=== PATIENT | female | born 1980 | race Caucasian/White ===

== ENCOUNTER 2017-01-25 00:49 | Emergency (ER) | payer MEDICARE, MEDICAID ==
[~2017-01-25] VITALS: Ht 165.1 cm; Wt 87.5 kg
[~2017-01-25 00:49] MED LIST: ALPRAZOLAM 0.125 MG PO; AMPH20TA PO; ARIP2TAB10 IM; ARIP400S IM; ARIP400S INJ; ASEN10TA9 SL; ASPI-892; ATOM60CA PO; BENA20TA72 PO; BNZ20T; BNZ20T PO; BROM5CAP3 PO; BUPR150T PO; CARB100T PO; CARI250T PO; CHOL4PAC2 PO; CITA40TA19 PO; CLON0.5T3 PO; CONCERTA PO; CPR500T PO; CPRH4T PO; CRS350T PO; CYCL10TA9 PO; CYPR4TAB PO; CYPROHEPTADINE PO; DCS100C PO; DESV100T; DIPH1TAB PO; FLC100T1 PO; FLC150T PO; FLUV150C PO; GBPN300C; GLBR5T; GLMP4T PO; HALO10TA PO; HALO5TAB PO; HALO5TAB17 PO; HCA25SU EXT; HYDR-3720 PO; HYDR-3820; HYDR50TA76; HYDROCODONE; ILOP8TAB PO; IMIP50TA2 PO; INSASP10V SC; INSU100I14 SQ; INSU100I16 SQ; INSU100I29 SC; INSU100I5 SQ; INSU100V6 SQ; INVEGA 6 MG; ISOM1CAP11 PO; LAMO100T PO; LAMO100T69 PO; LANS15CA27; LEVO500T69 PO; LEVO75TA58; LEVO88TA26 PO; LISD30CA; LMT25T; LORA0.5T PO; LORA0.5T34; LORA1TAB PO; LOXA25CA; LRZ1T PO; LVT.05T; METF-380 PO; METF1000 PO; METFOR850T; METH36TA11 PO; MIRT15TA6 PO; MIRT30TA19 PO; MIRT30TA6 PO; NAPR500T3 PO; NF-ESOM40C PO; NITR-65 PO; NITR100C3 PO; OMEP-10 PO; OXYC-465 PO; PGLT30T PO; PNT40TEC; PNT40TEC PO; PRAZ1CAP2 PO; QTP100T; QTP100T PO; QUET300T; RSP50S; SCR1T1 PO; SITA100T; SITA1TAB6 PO; SRTR100T; SRTR100T PO; STRATTERA; SULF1TAB35 PO; TOPI100T PO; TOPI100T2 PO; TOPI200T19 PO; TOPI50TA20; TPR25T PO; TRAM1TAB7 PO; TRAZ100T92; TRIH5TAB2 PO; TRIH5TAB7 PO; VILA20TA PO; VORT10TA PO; ZALE10CA10 PO; [UNRECOGNIZED DRUG - CODE]; [UNRECOGNIZED DRUG - CODE] PO; [UNRECOGNIZED DRUG - CODE] PO; [UNRECOGNIZED DRUG - CODE] PO; [UNRECOGNIZED DRUG - OTHER]; [UNRECOGNIZED DRUG - OTHER]; [UNRECOGNIZED DRUG - OTHER] PO
[2017-01-25] MEDS ORDERED: NS IV 1000 ML 1,000 ML IV ONE ×2 (01:03)
--- NOTE | 2017-01-25 01:07 | ED General ---
General Chief Complaint: Glucose Problems Stated Complaint: HIGH BLOOD SUGAR 503 Source of Information: Patient, RN Notes Reviewed Exam Limitations: No Limitations History of Present Illness Time Seen by Provider: 01:05 Initial Comments As above and below. Patient really had no other complaints x/ that her BS is running high. Actually has been going on for a while now. States she is taking her insulin as directed. Timing/Duration: Getting Worse Modifying Factors: improves with Other (none) Associated Systoms: Denies Symptoms Allergies and Home Medications Allergies Coded Allergies: amoxicillin (Unverified Allergy, Severe, sob, rash, 11/01/10) Penicillins (Verified Adverse Reaction, Severe, RASH, 12/14/05) cefuroxime (Verified Adverse Reaction, Severe, RASH, 12/14/05) clarithromycin (Unverified Adverse Reaction, Mild, nausea and dizziness, ) Home Medications Carisoprodol 250 Mg Tablet, 250 MG PO, (Reported) Cyclobenzaprine HCl 10 Mg Tablet, 10 MG PO Q8H, #15 Prescribed by: GAURANG STANTON on 05/25/16 2326 Hydrocodone/Acetaminophen 1 Each Tablet, #90 (Reported) Hydroxyzine HCl 50 Mg Tablet, #120 (Reported) Insulin Aspart 100 Unit/1 Ml Insuln.pen, 27 UNITS SQ TID, (Reported) Insulin Detemir 100 Unit/1 Ml Insuln.pen, 60 UNITS SC HS, (Reported) Levothyroxine Sodium 88 Mcg Tablet, 88 MCG PO DAILY, (Reported) Lorazepam 1 Mg Tab, 2 MG PO HS PRN for ANXIETY, (Reported) TAKES 2 (1MG) TABLETS Lorazepam 1 Mg Tab, 1 MG PO BID PRN for ANXIETY, (Reported) Loxapine Succinate 25 Mg Capsule, #90 (Reported) Metformin Hcl 1,000 Mg Tablet, 1,000 MG PO BID, (Reported) Naproxen 500 Mg Tablet, 500 MG PO BID, #20 Prescribed by: GAURANG STANTON on 05/25/16 2326 Nitrofurantoin Monohyd/M-Cryst 100 Mg Capsule, 100 MG PO BID, #20 Prescribed by: GAURANG STANTON on 05/25/16 2326 Topiramate 100 Mg Tablet, 100 MG PO BID, (Reported) Trazodone HCl 100 Mg Tablet, #30 (Reported) Constitutional: see HPI : No All Other Systems Reviewed Negative Unless Noted: Yes (Negative excepted noted.) Past Ftkrksk-Lbbskd-Ryfleu Hx Patient Social History Type Used: Cigarettes 2nd Hand Smoke Exposure: Yes Recent Foreign Travel: No Contact w/Someone Who Travel: No Recent Hopitalizations: Yes Immunizations Up To Date Tetanus Booster (TDap): Less than 5yrs Date of Pneumonia Vaccine: Oct 24, 2010 Date of Influenza Vaccine: Aug 30, 2015 Seasonal Allergies Seasonal Allergies: Yes Surgeries HX Surgeries: Yes (EGD, HIP SURGERY CHILD) Surgeries: Appendectomy, Eye Surgery, Gallbladder, Orthopedic Respiratory Hx Respiratory Disorders: No Cardiovascular Hx Cardiac Disorders: No Neurological Hx Neurological Disorders: Yes Neurological Disorders: Headaches /Migraines Reproductive System Hx Reproductive Disorders: No Sexually Transmitted Disease: No HIV/AIDS: No Female Reproductive Disorders: Denies Genitourinary Hx Genitourinary Disorders: Yes Genitourinary Disorders: UTI-Chronic Gastrointestinal Hx Gastrointestinal Disorders: Yes Gastrointestinal Disorders: Gastroesophageal Reflux Musculoskeletal Hx Musculoskeletal Disorders: No Endocrine Hx Endocrine Disorders: Yes Endocrine Disorders: Diabetes, Insulin dep, Hypothyroidsim HEENT HX ENT Disorders: Yes (GLASSES, EYE SURGERY CHILD) Loss of Vision: Bilateral Hearing Impairment: Denies Cancer Hx Cancer: No Psychosocial Hx Psychiatric Problems: Yes Behavioral Health Disorders: ADD/ADHD, Anxiety, Suicide Attempts, Personality Disorder, Schizophrenia, Depression Integumentary HX Skin/Integumentary Disorder: No Blood Transfusions Hx Blood Disorders: No Family Medical History Family Medial History: Family history: Allergy 03 MOTHER 09 BROTHER Family history: Arthritis 03 MOTHER Family history: Asthma 09 BROTHER 09 SISTER Family history: Cardiovascular disease 03 FATHER ("TAKES MEDICATION FOR HIS HEART") Family history: Diabetes mellitus 03 FATHER Family history: Hypertension 03 MOTHER Hypercholesterolemia 03 MOTHER Psychosocial problem 09 SISTER (DEPRESSION) Psychotic disorder 09 SISTER (ANXIETY) No Family History of: Abdominal aortic aneurysm [place]'s disease Alcoholism Aphasia Cancer Cancer of colon Cataract Chest pain Congenital heart disease Congestive heart failure Cystic fibrosis Dementia Dysphagia Family history: Alzheimer's disease Family history: Breast disease Family history: Coronary thrombosis Family history: Gastrointestinal disease Family history: Glaucoma Family history: Osteoporosis Family history: Thyroid disorder Headache Hearing loss Heart disease Hereditary disease History of - anemia History of - disorder History of - respiratory disease History of drug abuse Human immunodeficiency virus (HIV) seropositivity Infertile Kidney disease Malignant neoplasm of lung Myocardial infarction Parkinson's disease Prostate cancer Seizure disorder Stroke Tuberculosis Visual impairment Physical Exam Vital Signs Vital Sign - Last 12Hours 4/4/17 01:06 Temp 97.1 Pulse 117 Resp 18 B/P (MAP) 132/89 Pulse Ox 97 O2 Delivery Room Air Capillary Refill : General Appearance: No Apparent Distress, WD/WN HEENT: Normal ENT Inspection Neck: Normal Inspection Respiratory: No Respiratory Distress Cardiovascular: Tachycardia Gastrointestinal: Soft, No Tenderness Rectal: Deferred Neurologic/Psychiatric: Alert, Oriented x3, No Motor/Sensory Deficits Skin: Warm/Dry Progress/Results/Core Measures Results/Orders Lab Results My Orders Medications Given in ED Vital Signs/I&O Point of Care Testing Finger Stick Blood Glucose: 476 Blood Glucose Action Taken: RN AND DR NOTIFIED Departure Impression Impression: Primary Impression: Hyperglycemia Additional Impression: Diabetes mellitus, insulin dependent (IDDM), uncontrolled Disposition: 01 HOME, SELF-CARE Condition: Stable Departure-Patient Inst. Decision time for Depature: 02:40 Referrals: OLGA LUCERO MD (PCP/Family) Primary Care Physician Patient Instructions: Ganglion Cyst (DC), Hyperglycemia, Adult (DC) Add. Discharge Instructions: All discharge instructions reviewed with patient and/or family. Voiced understanding. CALL JAZMINE LATER THIS AM, 01/25, AND LET HIM KNOW YOUR SUGARS ARE RUNNING HIGH AND SEE HOW HE WOULD LIKE TO ADJUST YOUR INSULIN. FRANCISCO ALAN DO Jan 25, 2017 01:07
[2017-01-25 01:15] LABS: BILIRUBIN,URINE NEGATIVE (NEGATIVE); KETONES,URINE NEGATIVE (NEGATIVE); LEUKOCYTE ESTERASE ,URINE NEGATIVE (NEGATIVE); NITRITE,URINE NEGATIVE (NEGATIVE); PH,URINE 7 (5-9); PROTEIN,URINE NEGATIVE (NEGATIVE); UROBILINOGEN,URINE NORMAL (NORMAL); WBC,URINE RARE /HPF
[2017-01-25] MEDS ORDERED: inSUlin (REGULAR) HUMAN 1 UNIT/0.01 ML (CHARGE PER UNIT) IV ONE (01:15)
[2017-01-25 01:24] LABS: BASOPHILS # (AUTO) 0.1 10^3/uL (0.0-0.1); BASOPHILS % (AUTO) 1 % (0-10); EOSINOPHILS # (AUTO) 0.3 10^3/uL (0.0-0.3); EOSINOPHILS % (AUTO) 4 % (0-10); LYMPHOCYTES # (AUTO) 3.6 X 10^3 (1.0-4.0); LYMPHOCYTES % (AUTO) 37 % (12-44); MEAN CORPUSCULAR HEMOGLOBIN 29 PG (25-34); MEAN CORPUSCULAR HGB CONC 36 G/DL (32-36); MEAN CORPUSCULAR VOLUME 81 FL (80-99); MEAN PLATELET VOLUME 11.2 FL (7.4-10.4); MONOCYTES # (AUTO) 0.9 X 10^3 (0.0-1.0); MONOCYTES % (AUTO) 9 % (0-12); NEUTROPHILS # (AUTO) 4.9 X 10^3 (1.8-7.8); NEUTROPHILS % (AUTO) 50 % (42-75); PLATELET COUNT 203 10^3/uL (130-400); RED BLOOD COUNT 4.74 10^6/uL (4.35-5.85); RED CELL DISTRIBUTION WIDTH 13.4 % (10.0-14.5); WHITE BLOOD COUNT 9.8 10^3/uL (4.3-11.0)
[2017-01-25 01:44] LABS: ALANINE AMINOTRANSFERASE 22 U/L (0-55); ANION GAP 13 MMOL/L (5-14); ASPARTATE AMINO TRANSFERASE 11 U/L (5-34); BILIRUBIN,TOTAL 0.2 MG/DL (0.1-1.0); BLOOD UREA NITROGEN 10 MG/DL (7-18); BUN/CREATININE RATIO 11; CALCIUM 9.1 MG/DL (8.5-10.1); CARBON DIOXIDE 20 MMOL/L (21-32); CHLORIDE 102 MMOL/L (98-107); CREATININE SERUM 0.95 MG/DL (0.60-1.30); GFR ESTIMATED > 60; MAGNESIUM 1.6 MG/DL (1.8-2.4); POTASSIUM 3.2 MMOL/L (3.6-5.0); SODIUM 135 MMOL/L (135-145); TOTAL PROTEIN 6.6 G/DL (6.4-8.2)
[2017-01-25 01:47] LABS: GLUCOSE 530 MG/DL (70-105)
[2017-01-25 01:49] LABS: TROPONIN I < 0.30 NG/ML (<0.30)
[2017-01-25] MEDS ORDERED: MAGNESIUM OXIDE (MAG-OX)400 MG TAB PO ONE (02:00)
[2017-01-25] MEDS ORDERED: KCL 20 MEQ TAB (K-DUR) PO ONE (02:00)
[2017-01-25 02:53] VITALS: BP 123/87
--- OUTSIDE RECORDS SUMMARY | 2017-02-27 12:30 | XMS REPORT ---
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
--- OUTSIDE RECORDS SUMMARY | 2017-02-27 12:30 | XMS REPORT ---
Author Author YAIR RICO Organization [employer] Address Unknown Phone Unavailable Care Team Providers Care Internal Controls Analyst Name Role Phone YAIR RICO Unavailable Allergies No Known Allergies Problems Problem Type Condition Code Onset Dates Condition Status Problem Generalized anxiety disorder 300.02 Active Problem Bipolar disorder, unspecified 296.80 Active Problem Attention deficit disorder 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 314.00 Active Problem Paranoid schizophrenia, unspecified condition 295.30 Active Problem Posttraumatic stress disorder 309.81 Active Problem Attention deficit hyperactivity disorder (ADHD), inattentive type, 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
--- OUTSIDE RECORDS SUMMARY | 2017-02-27 12:30 | XMS REPORT ---
Author Author YAIR RICO [facility] [employer] Address Unknown Phone Unavailable Care Team Providers Care Lifeguard Name Role Phone YAIR RICO CP Unavailable Allergies, Adverse Reactions, Alerts Substance Reaction Event Type Latuda agitation Drug Allergy Penicillamine bronchospasm and rash Drug Allergy Cephalexin visual disturbances Drug Allergy Ceftin visual disturbance Drug Allergy Biaxin bronchospasm Drug Allergy Cymbalta 30 Mg Capsule, Delayed Release(e.c.) nausea Non Drug Allergy Brintellix 10 Mg Tablet nausea and vomiting Non Drug Allergy Problems Problem Type Condition Code Onset Dates Condition Status Problem Generalized anxiety disorder 300.02 Active Problem Bipolar disorder, unspecified 296.80 Active Problem Attention deficit disorder 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 314.00 Active Problem Attention deficit hyperactivity disorder (ADHD), inattentive type, 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 Problem Schizoaffective disorder, unspecified F25.9 Active Problem Posttraumatic stress disorder F43.10 Active Problem Catatonic schizophrenia, 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 Problem Disorganized schizophrenia, 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 Problem Paranoid schizophrenia F20.0 Active Problem Obsessive-compulsive disorders 300.3 Active Assessment Posttraumatic stress disorder F43.10 Active Assessment Paranoid schizophrenia F20.0 Active Problem Paranoid schizophrenia, unspecified condition 295.30 Active Assessment Attention deficit hyperactivity disorder (ADHD), inattentive type, 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 Problem Posttraumatic stress disorder 309.81 Active Medications Medication Code System Code Instructions Start Date End Date Status Dosage Synthroid [facility] [address]-79 50 MCG Orally Once a day 1 tablet Insulin Detemir [facility] [address]-68 100 unit/mL (3 mL) March 11, 2014 60 units by Subcutaneous route 1 time per day qHS NovoLog Mix 70/30 [facility] [address]-30 (70-30) 100 UNIT/ML Subcutaneous 3 times a day 27 units Metformin HCl [facility] [address]-35 1000 MG Orally 2 times a day 1 tablet Hydrocodone-Acetaminophen [facility] [address]-26 10-325 mg Aug 16, 2014 1 Tablet by Oral route every 8 hours PRN pain Invega [facility] [address]-24 9 MG Orally Once a day 1 tablet in the morning Lomotil [facility] [address]-22 2.5-0.025 MG Orally Four times a day 1 tablet as needed Cyproheptadine HCl [facility] [address]-02 4 MG Orally once a day Aug 16, 2016 2 tablets Ativan [facility] [address]-48 1 MG Orally 2 times a day prn for panic 1 tablet Topamax [facility] [address]-86 100 MG Orally Twice a day December 31, 2014 1 tablet Soma [facility] [address]-56 350 MG Orally Four times a day PRN migraine 1 tablet as needed Procedures Procedure Coding System Code Date Office Visit, Est Pt., Level 3 CPT-4 01956 Aug 16, 2016 [facility] VISIT ESTABLISHED PATIENT CPT-4 G0467 Aug 16, 2016 Vital Signs Date/Time: Aug 16, 2016 Cardiac Monitoring Heart Rate 108 bpm Weight 192.2 lbs Height 65.75 in BMI 31.25 Index Blood Pressure Diastolic 63 mmHg Blood Pressure Systolic 109 mmHg Results No Known Results Summary Purpose [employer]ClinicalWorks Submission
--- OUTSIDE RECORDS SUMMARY | 2017-02-27 12:30 | XMS REPORT ---
Author Author YAIR RICO Organization [employer] Address Unknown Phone Unavailable Care Team Providers Care Spring Former Machine Name Role Phone YAIR RICO CP Unavailable Allergies No Known Allergies Problems Problem Type Condition Code Onset Dates Condition Status Problem Paranoid [...] Instructions Start Date End Date Status Dosage Remeron [facility] [address]-89 30 Orally Once a day 1 tablet before bedtime in the evening Topamax [facility] [address]-43 100 MG December 31, 2014 1 Tablet by Oral route 2 daily for headache Cyproheptadine HCl [facility] [address]-07 4 MG Orally twice a day May 12, 2015 2 tablet in am 6 tablets at hs Citalopram Hydrobromide [facility] [address]-12 40 MG Orally Once a day Jul 11, 2015 1 tablet Abilify Maintena [facility] [address]-35 400 MG Intramuscular 1 time per month Nov 05, 2014 1 Injection Trihexyphenidyl HCl [facility] [address]-81 5 MG Orally twice times a day Aug 1 tablet with meals Strattera [facility] [address]-76 60 MG Orally Once a day Sep 03, 2015 as directed Haloperidol [facility] [address]-84 10 MG Orally 1 tablet in am 3 tablets at hs Sep 03, 2015 as directed Lamictal [facility] [address]-89 100 MG Orally once a day Sep 03, 2015 1 tablet Results No Known Results Summary Purpose [employer]ClinicalWorks Submission
--- OUTSIDE RECORDS SUMMARY | 2017-02-27 12:30 | XMS REPORT | Continuity of Care Document ---
Author Author [facility] Organization [facility] Address Unknown Phone Unavailable Care Team Providers Care Front Elevator Operator Name Role Phone Patrick Ryan PCP [phone] Source Comments Some departments are not documenting in the electronic medical record. If you do not see the information that you expected, contact Release of Information in the Health Information Management department at [phone] for further assistance in locating additional records.[facility] Active Allergies and Adverse Reactions Allergen Noted Date Severity Reactions Comments Amoxicillin 09/08/2016 Low PALPITATIONS Cephalexin 09/08/2016 Medium VISION CHANGES Clarithromycin 09/08/2016 Low DIARRHEA, STOMACH UPSET Cymbalta 09/08/2016 Low NAUSEA ONLY Pcn 09/08/2016 Medium RASH, PALPITATIONS Current Medications Prescription Sig. Disp. Refills Start End Date Status Date INSULIN DETEMIR (LEVEMIR Inject 60 Units under the Active SC) skin daily. INSULIN ASPART (NOVOLOG Inject 27 Units under the Active SC) skin three times daily. levothyroxine (SYNTHROID) Take 50 mcg by mouth Active 50 mcg tablet daily. LORazepam (ATIVAN) 1 mg Take 1 mg by mouth twice Active tablet daily. TOPIRAMATE (TOPAMAX PO) Take 150 mg by mouth Active twice daily. metFORMIN-ER(+) Take 1,000 mg by mouth Active (FORTAMET) 1,000 mg twice daily. extended release tablet diphenoxylate/atropine Take 1 Tab by mouth as Active (LOMOTIL) 2.5/0.025 mg Needed for Diarrhea. tablet cyproheptadine Take 4 mg by mouth three Active (PERIACTIN) 4 mg tablet times daily as needed. paliperidone(+) (INVEGA) Take by mouth daily. Active 9 mg tablet carisoprodol(+) (SOMA) Take 350 mg by mouth Active 350 mg tablet every 8 hours as needed for Muscle Cramps. HYDROcodone/acetaminophen Take 1 Tab by mouth every Active (+) (NORCO) 10/325 mg 8 hours as needed for tablet Pain Active Problems Not on file Social History Tobacco Use Types Packs/Day Years Used Date Never Assessed Plan of Care Health Maintenance Due Date Last Done Comments Physical (Comprehensive) 1988 Exam Pertussis Vaccine 1992 Tetanus Vaccine 1998 Cervical Cancer Screening 2002 Influenza Vaccine 06/24/2017 Results from Last 3 Months Not on file
--- OUTSIDE RECORDS SUMMARY | 2017-02-27 12:30 | XMS REPORT ---
Author Author YAIR RICO [facility] [employer] Address Unknown Phone Unavailable Care Team Providers Care Assembler Dc Field Ring Name Role Phone YAIR RICO Unavailable Allergies No Known Allergies Problems Problem Type Condition Code Onset Dates Condition Status Problem Paranoid schizophrenia, unspecified condition 295.30 Active Problem Generalized anxiety disorder 300.02 Active Problem Posttraumatic stress disorder 309.81 Active Problem Paranoid schizophrenia F20.0 Active Problem Obsessive-compulsive disorders 300.3 Active Problem Schizoaffective disorder, unspecified F25.9 Active Problem Bipolar disorder, unspecified 296.80 Active Problem Attention deficit disorder 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 314.00 Active Problem Catatonic schizophrenia, 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 Problem Disorganized schizophrenia, 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 Assessment Attention deficit hyperactivity disorder (ADHD), inattentive type, 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 Assessment Posttraumatic stress disorder F43.10 Active Assessment Paranoid schizophrenia F20.0 Active Medications Medication Code System Code Instructions Start Date End Date Status Dosage Ativan [facility] [address]-10 1 MG Orally 2 times a day prn for panic 1 tablet Synthroid [facility] [address]-13 50 MCG Orally Once a day 1 tablet Topamax [facility] [address]-55 100 MG Orally Twice a day December 31, 2014 1 tablet Metformin HCl [facility] [address]-58 1000 MG Orally 2 times a day 1 tablet Hydrocodone-Acetaminophen [facility] [address]-29 10-325 mg Aug 16, 2014 1 Tablet by Oral route every 8 hours PRN pain Levemir [facility] [address]-42 100 UNIT/ML Subcutaneous Once a day 60 units Lomotil [facility] [address]-47 2.5-0.025 MG Orally Four times a day 1 tablet as needed Soma [facility] [address]-71 350 MG Orally Four times a day PRN migraine 1 tablet as needed Mirtazapine [facility] [address]-68 15 MG Orally Once a day 1 tablet before bedtime in the evening Insulin Detemir [facility] [address]-62 100 unit/mL (3 mL) March 11, 2014 60 units by Subcutaneous route 1 time per day qHS NovoLog Mix 70/30 [facility] [address]-79 (70-30) 100 UNIT/ML Subcutaneous 3 times a day 27 units Invega [facility] [address]-75 9 MG Orally Once a day 1 tablet in the morning Procedures Procedure Coding System Code Date Office Visit, Est Pt., Level 3 CPT-4 37358 Jul 21, 2016 [facility] VISIT ESTABLISHED PATIENT CPT-4 G0467 Jul 21, 2016 Results No Known Results Summary Purpose [employer]ClinicalWorks Submission
--- OUTSIDE RECORDS SUMMARY | 2017-02-27 12:31 | XMS REPORT ---
Author Author YAIR RICO Organization [employer] Address Unknown Phone Unavailable Care Team Providers Care Oceanography Professor Name Role Phone YAIR RICO Unavailable Allergies [...] Instructions Start Date End Date Status Dosage Topamax [facility] [address]-62 100 MG December 31, 2014 1 Tablet by Oral route 2 daily for headache Results No Known Results Summary Purpose [employer]ClinicalWorks Submission
--- OUTSIDE RECORDS SUMMARY | 2017-02-27 12:31 | XMS REPORT ---
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
--- OUTSIDE RECORDS SUMMARY | 2017-02-27 12:31 | XMS REPORT ---
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 Assessment Posttraumatic stress disorder F43.10 Active Problem Obsessive-compulsive disorders 300.3 Active Problem Catatonic schizophrenia, 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 Problem Paranoid schizophrenia F20.0 Active Problem Attention deficit disorder 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 314.00 Active Problem Generalized anxiety disorder 300.02 Active Problem Disorganized schizophrenia, 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 Problem Bipolar disorder, unspecified 296.80 Active Medications Medication Code System Code Instructions Start Date End Date Status Dosage Haloperidol [facility] [address]-38 10 MG Orally 1 tablet in am 3 tablets at hs Sep 03, 2015 as directed Hydrocodone-Acetaminophen [facility] [address]-54 10-325 mg Aug 16, 2014 1 Tablet by Oral route every 8 hours PRN pain Haloperidol [facility] [address]-84 10 MG Orally one tablet in am and three tablets at bedtime Oct 06, 2015 as directed Strattera [facility] [address]-90 60 MG Orally Once a day Sep 03, 2015 as directed Ketan Mainelizabetha [facility] 79285007136 400 Intramuscular 1 time per month 1 Injection Soma [facility] [address]-68 350 MG Orally Four times a day PRN migraine 1 tablet as needed Remeron [facility] [address]-95 30 Orally Once a day 1 tablet before bedtime in the evening Ativan [facility] [address]-81 2 MG Orally 2 times a day AND 1 tablet orally qHS. Geeta to sign for Shemar May 12, 2015 0.5 tablet Lomotil [facility] [address]-08 2.5-0.025 MG Orally Four times a day 1 tablet as needed Levothyroxine Sodium [facility] [address]-11 88 MCG Orally Once a day 1 tablet Lamictal [facility] [address]-70 100 MG Orally once a day Sep 03, 2015 1 tablet Citalopram Hydrobromide [facility] [address]-04 40 MG Orally Once a day Jul 11, 2015 1 tablet Trihexyphenidyl HCl [facility] [address]-76 5 MG Orally twice times a day Aug 1 tablet with meals Topamax [facility] [address]-56 100 MG December 31, 2014 1 Tablet by Oral route 2 daily for headache NovoLog Mix 70/30 [facility] [address]-34 (70-30) 100 UNIT/ML Subcutaneous 3 times a day 27 units Insulin Detemir [facility] [address]-67 100 unit/mL (3 mL) March 11, 2014 60 units by Subcutaneous route 1 time per day q Cyproheptadine HCl [facility] [address]-63 4 MG Orally twice a day May 12, 2015 2 tablet in am 6 tablets at hs Procedures Procedure Coding System Code Date Office Visit, Est Pt., Level 3 CPT-4 16235 Sep 29, 2015 [facility] VISIT ESTABLISHED PATIENT CPT-4 G0467 Sep 29, 2015 Vital Signs Date/Time: Sep 29, 2015 Cardiac Monitoring Heart Rate 100 bpm Weight 193.9 lbs Height 65.75 in BMI 31.53 Index Blood Pressure Diastolic 60 mmHg Blood Pressure Systolic 110 mmHg Results No Known Results Summary Purpose eClinicalWorks Submission
--- OUTSIDE RECORDS SUMMARY | 2017-02-27 12:31 | XMS REPORT ---
Author FIDELIA [facility] eClinicalWorks Address Unknown Phone Unavailable Care Team Providers Care Floor Worker [place] Name Role Phone FIDELIA GUIDRY Unavailable Allergies, Adverse Reactions, Alerts Substance Reaction Event Type Latuda agitation Drug Allergy Penicillamine bronchospasm and rash Drug Allergy Cephalexin visual disturbances Drug Allergy Ceftin visual disturbance Drug Allergy Biaxin bronchospasm Drug Allergy Brintellix 10 Mg Tablet nausea and vomiting Non Drug Allergy Cymbalta 30 Mg Capsule, Delayed Release(e.c.) nausea Non Drug Allergy Problems Problem Type Condition [...] Active Problem Obsessive-compulsive disorders 300.3 Active Assessment Cough R05 Active Assessment Strep throat J02.0 Active Problem Paranoid schizophrenia, unspecified condition 295.30 Active Problem Posttraumatic stress disorder 309.81 Active Medications Medication Code System Code Instructions Start Date End Date Status Dosage Soma [facility] [address]-27 350 MG Orally Four times a day PRN migraine 1 tablet as needed Lomotil [facility] [address]-59 2.5-0.025 MG Orally Four times a day 1 tablet as needed Invega [facility] [address]-08 9 MG Orally Once a day 1 tablet in the morning Synthroid [facility] [address]-66 50 MCG Orally Once a day 1 tablet Hydrocodone-Acetaminophen [facility] [address]-86 10-325 mg Aug 16, 2014 1 Tablet by Oral route every 8 hours PRN pain Metformin HCl [facility] [address]-86 1000 MG Orally 2 times a day 1 tablet Cyproheptadine HCl [facility] [address]-66 4 MG Orally once a day Aug 16, 2016 2 tablets Tessalon Perles [facility] [address]-73 200 mg Orally Three times a day Sep 02, 2016 1 capsule as needed Ativan [facility] [address]-47 1 MG Orally 2 times a day prn for panic 1 tablet Insulin Detemir [facility] [address]-76 100 unit/mL (3 mL) March 11, 2014 60 units by Subcutaneous route 1 time per day qHS Topamax [facility] [address]-72 100 MG Orally Twice a day December 31, 2014 1 tablet NovoLog Mix 70/30 [facility] [address]-33 (70-30) 100 UNIT/ML Subcutaneous 3 times a day 27 units Procedures Procedure Coding System Code Date [facility] VISIT ESTABLISHED PATIENT CPT-4 G0467 Sep 02, 2016 Office Visit, Est Pt., Level 3 CPT-4 18946 Sep 02, 2016 STREP A ASSAY W/OPTIC CPT-4 29676 Sep 02, 2016 Vital Signs Date/Time: Sep 02, 2016 Cardiac Monitoring Heart Rate 76 bpm Weight 195.8 lbs Height 65.75 in BMI 31.84 Index Blood Pressure Diastolic 78 mmHg Blood Pressure Systolic 119 mmHg Results Name Result Date Reference Range Unit Abnormality Flag STREP A (IN HOUSE) ----STREP A Positive [id number] ----Control + [id number] ----Lot # [id number] ----Exp date 12/31/[id number] Summary Purpose eClinicalWorks Submission
--- OUTSIDE RECORDS SUMMARY | 2017-02-27 12:31 | XMS REPORT ---
Author Author YAIR RICO Organization eClinicalWorks Address Unknown Phone Unavailable Care Team Providers Care Vehicle Washer Name Role Phone YAIR RICO CP Unavailable [...]
--- OUTSIDE RECORDS SUMMARY | 2017-02-27 12:31 | XMS REPORT ---
Author Author YAIR RICO [facility] eClinicalWorks Address Unknown Phone Unavailable Care Team Providers Care Clerical Assistant Name Role Phone YAIR RICO CP Unavailable [...] Instructions Start Date End Date Status Dosage Abilify [facility] [address]-86 10 MG Orally Once a day the week before Ketan Greer is due Jun 23, 2016 1 tablet Topamax [facility] [address]-34 100 MG Orally Twice a day December 31, 2014 1 tablet Synthroid [facility] [address]-99 50 MCG Orally Once a day 1 tablet Lomotil [facility] [address]-12 2.5-0.025 MG Orally Four times a day 1 tablet as needed Soma [facility] [address]-99 350 MG Orally Four times a day PRN migraine 1 tablet as needed Trazodone HCl [facility] [address]-34 300 MG Orally Once a day April 05, 2016 1 tablet at bedtime Ketan Greer [facility] [address]-13 400 MG Intramuscular 1 time per month 1 Injection Insulin Detemir [facility] [address]-03 100 unit/mL (3 mL) March 11, 2014 60 units by Subcutaneous route 1 time per day qHS Ativan [facility] [address]-19 1 MG Orally 2 times a day prn for panic 1 tablet Levothyroxine Sodium [facility] [address]-69 88 MCG Orally Once a day 1 tablet Lexapro [facility] [address]-09 10 MG Orally Once a day Jun 23, 2016 1 tablet Trihexyphenidyl HCl [facility] [address]-20 5 MG Orally twice a day Sep 03, 2015 1 tablet with meals Ketan Greer [facility] [address]-18 400 MG Intramuscular 1 dose per month May 26, 2016 2 ml NovoLog Mix 70/30 [facility] [address]-71 (70-30) 100 UNIT/ML Subcutaneous 3 times a day 27 units Metformin HCl [facility] [address]-39 1000 MG Orally 2 times a day 1 tablet Loxapine Succinate [facility] [address]-03 10 MG Orally in am once a day May 26, 2016 1 capsule Hydrocodone-Acetaminophen [facility] [address]-14 10-325 mg Aug 16, 2014 1 Tablet by Oral route every 8 hours PRN pain Levemir [facility] [address]-16 100 UNIT/ML Subcutaneous Once a day 60 units Loxapine Succinate [facility] [address]-44 25 MG Orally in evening once a day May 26, 2016 2 capsules Procedures Procedure Coding System Code Date Office Visit, Est Pt., Level 3 CPT-4 87752 Jun 23, 2016 [facility] TO [facility] VISIT ESTABLISHED PATIENT CPT-4 G0467 Jun 23, 2016 Results No Known Results Summary Purpose eClinicalWorks Submission
--- OUTSIDE RECORDS SUMMARY | 2017-02-27 12:31 | XMS REPORT ---
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
--- OUTSIDE RECORDS SUMMARY | 2017-02-27 12:32 | XMS REPORT ---
Author Author YAIR RICO [facility] eClinicalWorks Address Unknown Phone Unavailable Care Team Providers Care Weed Eradicator Name Role Phone YAIR RICO CP Unavailable Allergies, Adverse Reactions, Alerts Substance Reaction Event Type Latuda agitation Drug Allergy Penicillamine bronchospasm and rash Drug Allergy Cephalexin visual disturbances Drug Allergy Ceftin visual disturbance Drug Allergy Biaxin bronchospasm Drug Allergy Cymbalta 30 Mg Capsule, Delayed Release(e.c.) nausea Non Drug Allergy Brintellix 10 Mg Tablet nausea and vomiting Non Drug Allergy Problems Problem Type Condition ICD-9 Code Onset Dates Condition Status Assessment Posttraumatic stress disorder 309.81 Active Problem Paranoid schizophrenia, unspecified condition 295.30 Active Assessment Schizoaffective disorder, chronic 295.72 Active Assessment Bipolar disorder, unspecified 296.80 Active Assessment Attention deficit disorder of childhood without mention [...] Instructions Start Date End Date Status Dosage Angelalidennis Reddytena [facility] [address]-38 400 MG Intramuscular 1 time per month Nov 05, 2014 1 Injection Trihexyphenidyl HCl [facility] [address]-37 5 MG Orally twice a day May 12, 2015 1 tablet Lomotil [facility] [address]-27 2.5-0.025 MG Orally Four times a day 1 tablet as needed Hydrocodone-Acetaminophen [facility] [address]-40 10-325 mg Aug 16, 2014 1 Tablet by Oral route every 8 hours PRN pain Remeron [facility] [address]-08 30 Orally Once a day 1 tablet before bedtime in the evening Ativan [facility] [address]-92 2 MG Orally 2 times a day AND 1 tablet orally qHS May 12, 2015 0.5 tablet NovoLog Mix 70/30 [facility] [address]-09 (70-30) 100 UNIT/ML Subcutaneous 3 times a day 27 units Levothyroxine Sodium [facility] [address]-93 88 MCG Orally Once a day 1 tablet Citalopram Hydrobromide [facility] [address]-47 20 MG Orally Once a day Jun 13, 2015 1 tablet Cyproheptadine HCl [facility] [address]-18 4 MG Orally twice a day May 12, 2015 2 tablet in am 6 tablets at hs Haloperidol [facility] [address]-42 5 MG Orally 1 tablet in am and 4 tablets at hs Jun 13, 2015 1 tablet LaMICtal ODT [facility] [address]-58 100 MG Orally Once a day Jun 13, 2015 1 tablet on the tongue and allow to dissolve Insulin Detemir [facility] [address]-22 100 unit/mL (3 mL) March 11, 2014 60 units by Subcutaneous route 1 time per day qHS Soma [facility] [address]-45 350 MG Orally Four times a day PRN migraine 1 tablet as needed Topamax [facility] [address]-05 100 mg December 31, 2014 1 Tablet by Oral route 2 daily for headache Strattera [facility] [address]-41 60 MG Orally Once a day May 12, 2015 1 capsule Periactin [facility] 0 4 mg December 31, 2014 2 Tablet by Oral route 1 time per day qAM and 6 Tablet by Oral route 1 time per day [facility] Procedures Procedure Coding System Code Date THER/PROPH/DIAG INJ, SC/IM CPT-4 94243 Jun 13, 2015 [facility] VISIT ESTABLISHED PATIENT CPT-4 G0467 Jun 13, 2015 TED SR (PT'S OWN) CPT-4 92956 Jun 13, 2015 Office Visit, Est Pt., Level 3 CPT-4 50127 Jun 13, 2015 Vital Signs Date/Time: Jun 13, 2015 Temperature 98.0 F Weight 204.1 lbs Height 65.75 in BMI 33.19 Index Blood Pressure Diastolic 70 mmHg Blood Pressure Systolic 105 mmHg Cardiac Monitoring Heart Rate 112 bpm Results No Known Results Summary Purpose eClinicalWorks Submission
--- OUTSIDE RECORDS SUMMARY | 2017-02-27 12:32 | XMS REPORT ---
Author Author YAIR RICO Organization eClinicalWorks Address Unknown Phone Unavailable Care Team Providers Care Finishing Area Supervisor Name Role Phone YAIR RICO Unavailable Allergies No Known Allergies Problems Problem Type Condition Code Onset Dates Condition Status Problem Paranoid schizophrenia, unspecified condition 295.30 Active Problem Generalized anxiety disorder 300.02 Active Problem Posttraumatic stress disorder 309.81 Active Assessment Paranoid schizophrenia F20.0 Active Problem Paranoid schizophrenia F20.0 Active Problem Obsessive-compulsive disorders 300.3 Active Problem Schizoaffective disorder, unspecified F25.9 Active Problem Bipolar disorder, unspecified 296.80 Active Problem Attention deficit disorder 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 314.00 Active Problem Catatonic schizophrenia, 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
--- OUTSIDE RECORDS SUMMARY | 2017-02-27 12:32 | XMS REPORT ---
Author Author YAIR RICO Organization eClinicalWorks Address Unknown Phone Unavailable Care Team Providers Care Preconstruction Manager Name Role Phone YAIR RICO Unavailable Allergies No Known Allergies Problems Problem Type Condition Code Onset Dates Condition Status Problem Posttraumatic stress disorder 309.81 Active Problem [...] unspecified 296.80 Active Medications No Known Medications Results No Known Results Summary Purpose eClinicalWorks Submission
--- OUTSIDE RECORDS SUMMARY | 2017-02-27 12:32 | XMS REPORT ---
Author Author YAIR RICO [facility] eClinicalWorks Address Unknown Phone Unavailable Care Team Providers Care Supervisor Fabrication Department Name Role Phone YAIR RICO CP Unavailable [...] Instructions Start Date End Date Status Dosage HydrOXYzine HCl [facility] [address]-13 50 MG Orally every 6 hrs April 19, 2016 1 tablet as needed NovoLog Mix 70/30 [facility] [address]-24 (70-30) 100 UNIT/ML Subcutaneous 3 times a day 27 units Hydrocodone-Acetaminophen [facility] [address]-56 10-325 mg Aug 16, 2014 1 Tablet by Oral route every 8 hours PRN pain Trazodone HCl [facility] [address]-74 300 MG Orally Once a day April 05, 2016 1 tablet at bedtime Levemir [facility] [address]-12 100 UNIT/ML Subcutaneous Once a day 60 units Topamax [facility] [address]-56 100 MG Orally Twice a day December 31, 2014 1 tablet Trihexyphenidyl HCl [facility] [address]-55 5 MG Orally twice a day Sep 03, 2015 1 tablet with meals Levothyroxine Sodium [facility] [address]-30 88 MCG Orally Once a day 1 tablet Loxapine Succinate [facility] [address]-14 10 MG Orally in am once a day May 26, 2016 1 capsule Ativan [facility] [address]-57 1 MG Orally 2 times a day prn for panic 1 tablet Soma [facility] [address]-68 350 MG Orally Four times a day PRN migraine 1 tablet as needed Abilify Maintena [facility] [address]-46 400 MG Intramuscular 1 time per month 1 Injection Synthroid [facility] [address]-03 50 MCG Orally Once a day 1 tablet Insulin Detemir [facility] [address]-50 100 unit/mL (3 mL) March 11, 2014 60 units by Subcutaneous route 1 time per day qHS Loxapine Succinate [facility] [address]-34 25 MG Orally in evening once a day May 26, 2016 2 capsules Metformin HCl [facility] [address]-03 1000 MG Orally 2 times a day 1 tablet Abilify Maintena [facility] [address]-89 400 MG Intramuscular 1 dose per month May 26, 2016 2 ml Lomotil [facility] [address]-30 2.5-0.025 MG Orally Four times a day 1 tablet as needed Procedures Procedure Coding System Code Date Office Visit, Est Pt., Level 3 CPT-4 92850 May 26, 2016 [facility] VISIT ESTABLISHED PATIENT CPT-4 G0467 May 26, 2016 Vital Signs Date/Time: May 26, 2016 Cardiac Monitoring Heart Rate 104 bpm Weight 195.3 lbs Height 65.75 in BMI 31.76 Index Blood Pressure Diastolic 73 mmHg Blood Pressure Systolic 120 mmHg Results No Known Results Summary Purpose eClinicalWorks Submission
--- OUTSIDE RECORDS SUMMARY | 2017-02-27 12:32 | XMS REPORT ---
Author Author YAIR RICO Organization eClinicalWorks Address Unknown Phone Unavailable Care Team Providers Care Engineering Vice President Name Role Phone YAIR RICO Unavailable Allergies [...] Start Date End Date Status Dosage Ativan [facility] [address]-06 2 MG Orally 2 times a day AND 1 tablet orally qHS. Geeta to sign for Shemar May 12, 2015 0.5 tablet Strattera [facility] [address]-57 60 MG Orally Once a day. Geeta to sign for Shemar TAKE ONE CAPSULE BY MOUTH DAILY Results No Known Results Summary Purpose eClinicalWorks Submission
--- OUTSIDE RECORDS SUMMARY | 2017-02-27 12:32 | XMS REPORT ---
Author Author YAIR RICO Organization eClinicalWorks Address Unknown Phone Unavailable Care Team Providers Care Senior Advisory Name Role Phone YAIR RICO CP Unavailable [...] 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 314.00 Active Medications No Known Medications Results No Known Results Summary Purpose eClinicalWorks Submission
--- OUTSIDE RECORDS SUMMARY | 2017-02-27 12:32 | XMS REPORT ---
Author Author YAIR RICO Organization eClinicalWorks Address Unknown Phone Unavailable Care Team Providers Care Knotting Machine Operator Portable Name Role Phone YAIR RICO Unavailable Allergies [...] Start Date End Date Status Dosage Ativan [facility] [address]-49 2 MG Orally 2 times a day AND 1 tablet orally qHS. Geeta to sign for Shemar May 12, 2015 0.5 tablet Results No Known Results Summary Purpose eClinicalWorks Submission
--- OUTSIDE RECORDS SUMMARY | 2017-02-27 12:33 | XMS REPORT ---
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
--- OUTSIDE RECORDS SUMMARY | 2017-02-27 12:33 | XMS REPORT ---
Author Author YAIR RICO [facility] eClinicalWorks Address Unknown Phone Unavailable Care Team Providers Care System Configuration Specialist Name Role Phone YAIR RICO CP Unavailable [...] Instructions Start Date End Date Status Dosage Insulin Detemir [facility] [address]-62 100 unit/mL (3 mL) March 11, 2014 60 units by Subcutaneous route 1 time per day [facility] 400 Intramuscular 1 time per month 1 Injection Cyproheptadine HCl [facility] [address]-71 4 MG Orally twice a day May 12, 2015 2 tablet in am 6 tablets at hs Soma [facility] [address]-33 350 MG Orally Four times a day PRN migraine 1 tablet as needed Strattera [facility] [address]-41 60 MG Orally Once a day Sep 03, 2015 as directed Trazodone HCl [facility] [address]-84 100 MG Orally Once a day Oct 22, 2015 1 tablet at bedtime Hydrocodone-Acetaminophen [facility] [address]-18 10-325 mg Aug 16, 2014 1 Tablet by Oral route every 8 hours PRN pain Citalopram Hydrobromide [facility] [address]-19 40 MG Orally Once a day Jul 11, 2015 1 tablet Haloperidol [facility] [address]-79 10 MG Orally one tablet in am and three tablets at bedtime Oct 06, 2015 as directed Remeron [facility] [address]-31 30 Orally Once a day 1 tablet before bedtime in the evening Lomotil [facility] [address]-50 2.5-0.025 MG Orally Four times a day 1 tablet as needed Trihexyphenidyl HCl [facility] [address]-51 5 MG Orally twice times a day Aug 1 tablet with meals NovoLog Mix 70/30 [facility] [address]-80 (70-30) 100 UNIT/ML Subcutaneous 3 times a day 27 units Lamictal [facility] [address]-37 100 MG Orally once a day Sep 03, 2015 1 tablet Ativan [facility] [address]-22 2 MG Orally 2 times a day AND 1 tablet orally qHS. Geeta to sign for Shemar May 12, 2015 0.5 tablet Topamax [facility] [address]-18 100 MG December 31, 2014 1 Tablet by Oral route 2 daily for headache Levothyroxine Sodium [facility] [address]-46 88 MCG Orally Once a day 1 tablet Procedures Procedure Coding System Code Date THER/PROPH/DIAG INJ, SC/IM CPT-4 99222 Oct 22, 2015 [facility] VISIT ESTABLISHED PATIENT CPT-4 G0467 Oct 22, 2015 TED SR (PT'S OWN) CPT-4 88320 Oct 22, 2015 Office Visit, Est Pt., Level 3 CPT-4 32413 Oct 22, 2015 Vital Signs Date/Time: Oct 22, 2015 Cardiac Monitoring Heart Rate 120 bpm Weight 187.0 lbs Height 65.75 in BMI 30.41 Index Blood Pressure Diastolic 76 mmHg Blood Pressure Systolic 110 mmHg Results No Known Results Summary Purpose eClinicalWorks Submission
--- OUTSIDE RECORDS SUMMARY | 2017-02-27 12:33 | XMS REPORT ---
Author Author TRUDY GENAO [employer] Address Unknown Phone Unavailable Care Team Providers Care High [employer] Assistant Principal Name Role Phone TRUDY GENAO CP Unavailable Allergies, Adverse Reactions, Alerts Substance [...] Problem Posttraumatic stress disorder 309.81 Active Assessment Dental examination Z01.20 Active Problem Paranoid schizophrenia F20.0 Active Problem Obsessive-compulsive disorders 300.3 Active Problem Schizoaffective disorder, unspecified F25.9 Active Problem Bipolar disorder, unspecified 296.80 Active Problem Attention deficit disorder 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 314.00 Active Problem Catatonic schizophrenia, 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 Problem Disorganized schizophrenia, 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 Medications Medication Code System Code Instructions Start Date End Date Status Dosage Topamax [facility] [address]-61 100 MG Orally Twice a day December 31, 2014 1 tablet Synthroid [facility] [address]-34 50 MCG Orally Once a day 1 tablet Levemir [facility] [address]-49 100 UNIT/ML Subcutaneous Once a day 60 units Hydrocodone-Acetaminophen [facility] [address]-02 10-325 mg Aug 16, 2014 1 Tablet by Oral route every 8 hours PRN pain Lexapro [facility] [address]-08 10 MG Orally Once a day Jun 23, 2016 1 tablet Ativan [facility] [address]-24 1 MG Orally 2 times a day prn for panic 1 tablet Insulin Detemir [facility] [address]-76 100 unit/mL (3 mL) March 11, 2014 60 units by Subcutaneous route 1 time per day qHS Lomotil NDC [address]-57 2.5-0.025 MG Orally Four times a day 1 tablet as needed Trihexyphenidyl HCl [facility] [address]-57 5 MG Orally twice a day Sep 03, 2015 1 tablet with meals Ketan [facility] [address]-01 10 MG Orally Once a day the week before Ketan Greer is due Jun 23, 2016 1 tablet Loxapine Succinate [facility] [address]-01 10 MG Orally in am once a day May 26, 2016 1 capsule Ketan Greer [facility] [address]-89 400 MG Intramuscular 1 dose per month May 26, 2016 2 ml NovoLog Mix 70/30 [facility] [address]-75 (70-30) 100 UNIT/ML Subcutaneous 3 times a day 27 units Metformin HCl [facility] [address]-66 1000 MG Orally 2 times a day 1 tablet Ketan Amosa [facility] [address]-64 400 MG Intramuscular 1 time per month 1 Injection Trazodone HCl [facility] [address]-00 300 MG Orally Once a day April 05, 2016 1 tablet at bedtime Soma [facility] [address]-23 350 MG Orally Four times a day PRN migraine 1 tablet as needed Levothyroxine Sodium [facility] [address]-58 88 MCG Orally Once a day 1 tablet Loxapine Succinate [facility] [address]-40 25 MG Orally in evening once a day May 26, 2016 2 capsules Procedures Procedure Coding System Code Date INTRAORL - CMPL SERIES CODE 63598 CPT-4 D0210 Jul 15, 2016 PANORAMIC FILM SEE ALSO CODE 19602 CPT-4 D0330 Jul 15, 2016 LTD ORAL EVALUATION - PROBLEM FOCUS CPT-4 D0140 Jul 15, 2016 Vital Signs Date/Time: Jul 15, 2016 Blood Pressure Diastolic 96 mmHg Blood Pressure Systolic 135 mmHg Results No Known Results Summary Purpose [employer]ClinicalWorks Submission
--- OUTSIDE RECORDS SUMMARY | 2017-02-27 12:33 | XMS REPORT ---
Author Author YAIR RICO Organization [employer] Address Unknown Phone Unavailable Care Team Providers Care Director Of Integrated Marketing Name Role Phone YAIR RICO CP Unavailable [...]
--- OUTSIDE RECORDS SUMMARY | 2017-02-27 12:33 | XMS REPORT ---
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 Phone YAIR RICO CP Unavailable [...] Start Date End Date Status Dosage Soma [facility] [address]-36 350 MG Orally Four times a day PRN migraine 1 tablet as needed Loxapine Succinate [facility] [address]-93 25 MG Orally 1 capsule in am and 2 capslues at night April 05, 2016 as directed Ketan Maintena [facility] [address]-18 400 MG Intramuscular 1 time per month 1 Injection Trazodone HCl [facility] [address]-28 300 MG Orally Once a day April 05, 2016 1 tablet at bedtime Metformin HCl [facility] [address]-67 1000 MG Orally 2 times a day 1 tablet Synthroid [facility] [address]-13 50 MCG Orally Once a day 1 tablet Levothyroxine Sodium [facility] [address]-77 88 MCG Orally Once a day 1 tablet Trihexyphenidyl HCl [facility] [address]-64 5 mg Orally twice times a day Aug 1 tablet with meals Hydrocodone-Acetaminophen [facility] [address]-56 10-325 mg Aug 16, 2014 1 Tablet by Oral route every 8 hours PRN pain Lomotil [facility] [address]-78 2.5-0.025 MG Orally Four times a day 1 tablet as needed HydrOXYzine HCl [facility] [address]-35 50 MG Orally every 6 hrs April 19, 2016 1 tablet as needed Topamax [facility] [address]-47 100 MG Orally Twice a day December 31, 2014 1 tablet Ativan [facility] [address]-00 1 MG Orally 2 times a day prn for panic 1 tablet NovoLog Mix 70/30 [facility] [address]-43 (70-30) 100 UNIT/ML Subcutaneous 3 times a day 27 units Levemir [facility] [address]-33 100 UNIT/ML Subcutaneous Once a day 60 units Insulin Detemir [facility] [address]-11 100 unit/mL (3 mL) March 11, 2014 60 units by Subcutaneous route 1 time per day [facility] Procedures Procedure Coding System Code Date Office Visit, Kiera Pt., Level 3 CPT-4 21361 April 19, 2016 [facility] ESTABLISHED PATIENT CPT-4 G0467 April 19, 2016 Vital Signs Date/Time: April 19, 2016 Cardiac Monitoring Heart Rate 132 bpm Weight 197.3 lbs Height 65.75 in Blood Pressure Diastolic 75 mmHg Blood Pressure Systolic 124 mmHg Results No Known Results Summary Purpose eClinicalWorks Submission
--- OUTSIDE RECORDS SUMMARY | 2017-02-27 12:33 | XMS REPORT ---
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 Problem Obsessive-compulsive disorders 300.3 Active Problem Generalized anxiety disorder 300.02 Active Problem Posttraumatic stress disorder 309.81 Active Problem Bipolar disorder, unspecified 296.80 Active Problem Attention deficit disorder 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 314.00 Active Medications Medication Code System Code Instructions Start Date End Date Status Dosage Citalopram Hydrobromide [facility] [address]-24 40 MG Orally Once a day Jul 11, 2015 1 tablet Cyproheptadine HCl [facility] [address]-19 4 MG Orally twice a day May 12, 2015 2 tablet in am 6 tablets at hs Citalopram Hydrobromide [facility] [address]-57 40 MG Orally Once a day Sep 03, 2015 1 tablet Topamax [facility] [address]-07 100 MG December 31, 2014 1 Tablet by Oral route 2 daily for headache Hydrocodone-Acetaminophen [facility] [address]-84 10-325 mg Aug 16, 2014 1 Tablet by Oral route every 8 hours PRN pain Strattera [facility] [address]-37 60 MG Orally Once a day Sep 03, 2015 as directed Levothyroxine Sodium [facility] [address]-99 88 MCG Orally Once a day 1 tablet Haloperidol [facility] [address]-65 10 MG Orally 1 tablet in am 3 tablets at hs Sep 03, 2015 as directed Remeron [facility] [address]-10 30 Orally Once a day 1 tablet before bedtime in the evening Soma [facility] [address]-38 350 MG Orally Four times a day PRN migraine 1 tablet as needed Trihexyphenidyl HCl [facility] [address]-69 5 MG Orally twice times a day Aug 1 tablet with meals Lomotil [facility] [address]-28 2.5-0.025 MG Orally Four times a day 1 tablet as needed NovoLog Mix 70/30 [facility] [address]-33 (70-30) 100 UNIT/ML Subcutaneous 3 times a day 27 units Lamictal [facility] [address]-77 100 MG Orally once a day Sep 03, 2015 1 tablet Ativan [facility] [address]-85 2 MG Orally 2 times a day AND 1 tablet orally qHS. Geeta to sign for Shemar May 12, 2015 0.5 tablet Mirtazapine [facility] [address]-68 30 MG Orally Once a day Sep 03, 2015 1 tablet before bedtime in the evening Insulin Detemir [facility] [address]-27 100 unit/mL (3 mL) March 11, 2014 60 units by Subcutaneous route 1 time per day qHS Angelalidennis Amosa [facility] [address]-80 400 MG Intramuscular 1 time per month Nov 05, 2014 1 Injection Procedures Procedure Coding System Code Date Office Visit, Est Pt., Level 3 CPT-4 68369 Sep 03, 2015 [facility] VISIT ESTABLISHED PATIENT CPT-4 G0467 Sep 03, 2015 Vital Signs Date/Time: Sep 03, 2015 Cardiac Monitoring Heart Rate 116 bpm Weight 195.4 lbs Height 65.75 in BMI 31.78 Index Blood Pressure Diastolic 75 mmHg Blood Pressure Systolic 108 mmHg Results No Known Results Summary Purpose eClinicalWorks Submission
--- OUTSIDE RECORDS SUMMARY | 2017-02-27 12:36 | XMS REPORT ---
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
--- OUTSIDE RECORDS SUMMARY | 2017-02-27 12:36 | XMS REPORT | Continuity of Care Document ---
Author Author [facility] Address Unknown Phone Unavailable Allergies Active Description Code Type Severity Reaction Onset Reported/Identified Relationship to Patient Clinical Status Yes cefuroxime [id number] Drug Allergy Severe RASH 12/14/2005 Yes Penicillins [id number] Drug Allergy Severe RASH 12/14/2005 Yes amoxicillin [id number] Drug Allergy Severe sob, rash 11/01/2010 Yes any cillin OA N/A N/A 02/26/2011 Yes Biaxin Drug Allergy N/A N/A 02/26/2011 Yes Ceftin Drug Allergy N/A N/A 02/26/2011 Yes Latuda Drug Allergy N/A N/A 02/26/2011 Yes any cillin OA 02/26/2011 Yes Biaxin Drug Allergy 02/26/2011 Yes Ceftin Drug Allergy 02/26/2011 Yes Latuda Drug Allergy 02/26/2011 Yes Cymbalta 30 mg Capsule, Delayed Release(E.C.) Drug Allergy N/A N/A 12/03/2011 Yes Cymbalta 30 mg Capsule, Delayed Release(E.C.) Drug Allergy 12/03/2011 Yes clarithromycin [id number] Drug Allergy Mild nausea and dizz 02/07/2014 Yes Brintellix 10 mg tablet Drug Allergy N/A N/A 02/22/2014 Yes cephalexin Drug Allergy N/A N/A 03/11/2014 Medications 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 07/17/2010 AFUA FINLEY APRN 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 07/17/2010 AFUA FINLEY APRN 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 07/17/2010 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 07/17/2010 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 07/17/2010 AFUA FINLEY APRN 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 07/17/2010 FINLEY SHOE PATTERNMAKER, AFUA LIZAMAH 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 07/17/2010 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 07/17/2010 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 07/17/2010 FINLEY SHOE PATTERNMAKER, AFUA LIZAMAH 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 07/17/2010 FINLEY SHOE PATTERNMAKER, AFUA LIZAMAH 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 07/17/2010 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 07/17/2010 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 07/17/2010 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 07/17/2010 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 07/17/2010 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 07/17/2010 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 07/17/2010 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 07/17/2010 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 07/17/2010 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 07/17/2010 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 07/17/2010 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 07/17/2010 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 07/17/2010 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 07/17/2010 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 07/17/2010 FINLEY SHOE PATTERNMAKER, AFUA LIZAMAH 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 07/17/2010 FINLEY SHOE PATTERNMAKER, AFUA LIZAMAH 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 07/17/2010 FINLEY SHOE PATTERNMAKER, AFUA LIZAMAH 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 07/17/2010 FINLEY SHOE PATTERNMAKER, AFUA LIZAMAH 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 07/17/2010 FINLEY SHOE PATTERNMAKER, AFUA LIZAMAH 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 07/17/2010 FINLEY SHOE PATTERNMAKER, AFUA LIZAMAH 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 07/17/2010 FINLEY SHOE PATTERNMAKER, AFUA LIZAMAH 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 07/17/2010 FINLEY SHOE PATTERNMAKER, AFUA ANDREIA 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 07/17/2010 FINLEY SHOE PATTERNMAKER, AFUA LIZAMAH 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 07/17/2010 FINLEY SHOE PATTERNMAKER, AFUA LIZAMAH 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 07/17/2010 FINLEY SHOE PATTERNMAKER, AFUA LIZAMAH 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 07/17/2010 FINLEY SHOE PATTERNMAKER, AFUA LIZAMAH 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 07/17/2010 FINLEY SHOE PATTERNMAKER, AFUA BOSWELL 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 07/17/2010 FINLEY SHOE PATTERNMAKER, AFUA BOSWELL 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 07/17/2010 FINLEY SHOE PATTERNMAKER, AFUA BOSWELL 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 07/17/2010 FINLEY SHOE PATTERNMAKER, AFUA BOSWELL 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 07/17/2010 FINLEY SHOE PATTERNMAKER, AFUA BOSWELL 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 07/17/2010 FINLEY SHOE PATTERNMAKER, AFUA BOSWELL 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 07/17/2010 LILA SHOE PATTERNMAKER, BRYAN 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 07/17/2010 LILA SHOE PATTERNMAKER, BRYAN 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 07/17/2010 VYAS DO ALVARO K 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 07/17/2010 VYAS DO, ALVARO K 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 07/17/2010 LILA SHOE PATTERNMAKER, BRYAN 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 07/17/2010 LILA SHOE PATTERNMAKER, BRYAN 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 07/17/2010 LILA SHOE PATTERNMAKER, BRYAN 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 07/17/2010 LILA SHOE PATTERNMAKER, BRYAN 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 07/17/2010 LILA SHOE PATTERNMAKER, BRYAN 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 07/17/2010 LILA SHOE PATTERNMAKER, BRYAN 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 07/17/2010 LILA SHOE PATTERNMAKER, BRYAN 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 07/17/2010 LILA SHOE PATTERNMAKER, BRYAN 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 07/17/2010 VYAS DO, LAVARO K 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 07/17/2010 VYAS DO ALVARO K 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 07/17/2010 LILA SHOE PATTERNMAKER, BRYAN 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 07/17/2010 LILA SHOE PATTERNMAKER, BRYAN 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 07/17/2010 LILA SHOE PATTERNMAKER, BRYAN 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 07/17/2010 LILA SHOE PATTERNMAKER, BRYAN 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 07/17/2010 LILA SHOE PATTERNMAKER, BRYAN 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 07/17/2010 LILA SHOE PATTERNMAKER, BRYAN 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 07/17/2010 LILA SHOE PATTERNMAKER, BRYAN 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 07/17/2010 LILA SHOE PATTERNMAKER, BRYAN 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 07/17/2010 LILA SHOE PATTERNMAKER, BRYAN 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 07/17/2010 LILA SHOE PATTERNMAKER, BRYAN 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 07/17/2010 VYAS DO, ALVARO K 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 07/17/2010 VYAS DO, ALVARO K 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 07/17/2010 VYAS DO, ALVARO K 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 07/17/2010 VYAS DO, ALVARO K 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 07/17/2010 LILA SHOE PATTERNMAKER, BRYAN 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 07/17/2010 LILA SHOE PATTERNMAKER, BRYAN 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 07/17/2010 LILA SHOE PATTERNMAKER, BRYAN 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 07/17/2010 LILA SHOE PATTERNMAKER, BRYAN 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 07/17/2010 LILA SHOE PATTERNMAKER, BRYAN 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 07/17/2010 LILA SHOE PATTERNMAKER, BRYAN 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 07/17/2010 LILA SHOE PATTERNMAKER, BRYAN 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 07/17/2010 LILA SHOE PATTERNMAKER, BRYAN 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 07/17/2010 LILA SHOE PATTERNMAKER, BRYAN 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 07/17/2010 LILA SHOE PATTERNMAKER, BRYAN 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 11/01/2010 Ot 682.3 11/01/2010 Ot 913.1 11/01/2010 Ot 959.3 11/01/2010 Ot E000.8 11/01/2010 Ot E849.0 11/01/2010 Ot E906.8 11/07/2010 Ot 250.00 11/07/2010 Ot 790.29 11/07/2010 Ot 791.9 12/10/2010 Ot 250.00 12/10/2010 Ot 295.70 12/10/2010 Ot 962.7 12/10/2010 Ot 963.0 12/10/2010 Ot 966.3 12/10/2010 Ot 967.8 12/10/2010 Ot 969.09 12/10/2010 Ot 969.4 12/10/2010 Ot 971.1 12/10/2010 Ot E849.0 12/10/2010 Ot E852.8 12/10/2010 Ot E853.2 12/10/2010 Ot E854.0 12/10/2010 Ot E855.0 12/10/2010 Ot E855.4 12/10/2010 Ot E858.0 12/10/2010 Ot E858.1 12/10/2010 Ot V58.69 12/11/2010 Ot 244.9 12/11/2010 Ot 250.00 12/11/2010 Ot 295.70 12/11/2010 Ot 780.79 02/22/2011 TUSHAR CHAUDHRY AFUA BOSWELL 278.01 OBESITY, MORBID (BMI >40) 02/22/2011 TUSHAR CHAUDHRY AFUA LIZAMAH 401.1 HYPERTENSION, BENIGN ESSENTIAL 02/22/2011 TUSHAR CHAUDHRY AFUA BOSWELL 278.01 OBESITY, MORBID (BMI >40) 02/22/2011 TSUHAR CHAUDHRY AFUA BOSWELL 401.1 HYPERTENSION, BENIGN ESSENTIAL 02/22/2011 278.01 OBESITY, MORBID (BMI >40) 02/22/2011 401.1 HYPERTENSION, BENIGN ESSENTIAL 02/22/2011 TUSHAR CHAUDHRY AFUA BOSWELL 278.01 OBESITY, MORBID (BMI >40) 02/22/2011 TUSHAR CHAUDHRY AFUA LIZAMAH 401.1 HYPERTENSION, BENIGN ESSENTIAL 02/22/2011 278.01 OBESITY, MORBID (BMI >40) 02/22/2011 401.1 HYPERTENSION, BENIGN ESSENTIAL 02/22/2011 FINLEY RICHA AFUA LIZAMAH 278.01 OBESITY, MORBID (BMI >40) 02/22/2011 FINLEY SHOE PATTERNMAKER, AFUA LIZAMAH 401.1 HYPERTENSION, BENIGN ESSENTIAL 02/22/2011 278.01 OBESITY, MORBID (BMI >40) 02/22/2011 401.1 HYPERTENSION, BENIGN ESSENTIAL 02/22/2011 278.01 OBESITY, MORBID (BMI >40) 02/22/2011 401.1 HYPERTENSION, BENIGN ESSENTIAL 02/22/2011 278.01 OBESITY, MORBID (BMI >40) 02/22/2011 401.1 HYPERTENSION, BENIGN ESSENTIAL 02/22/2011 278.01 OBESITY, MORBID (BMI >40) 02/22/2011 401.1 HYPERTENSION, BENIGN ESSENTIAL 02/22/2011 278.01 OBESITY, MORBID (BMI >40) 02/22/2011 401.1 HYPERTENSION, BENIGN ESSENTIAL 02/22/2011 278.01 OBESITY, MORBID (BMI >40) 02/22/2011 401.1 HYPERTENSION, BENIGN ESSENTIAL 02/22/2011 278.01 OBESITY, MORBID (BMI >40) 02/22/2011 401.1 HYPERTENSION, BENIGN ESSENTIAL 02/22/2011 FINLEY SHOE PATTERNMAKER, AFUA BOSWELL 278.01 OBESITY, MORBID (BMI >40) 02/22/2011 FINLEY SHOE PATTERNMAKER, AFUA BOSWELL 401.1 HYPERTENSION, BENIGN ESSENTIAL 02/22/2011 FINLEY SHOE PATTERNMAKER, AFUA BOSWELL 278.01 OBESITY, MORBID (BMI >40) 02/22/2011 FINLEY SHOE PATTERNMAKER, AFUA LIZAMAH 401.1 HYPERTENSION, BENIGN ESSENTIAL 02/22/2011 FINLEY SHOE PATTERNMAKER, AFUA ANDREIA 278.01 OBESITY, MORBID (BMI >40) 02/22/2011 FINLEY SHOE PATTERNMAKER, AFUA LIZAMAH 401.1 HYPERTENSION, BENIGN ESSENTIAL 02/22/2011 FINLEY SHOE PATTERNMAKER, AFUA LIZAMAH 278.01 OBESITY, MORBID (BMI >40) 02/22/2011 FINLEY SHOE PATTERNMAKER, AFUA BOSWELL 401.1 HYPERTENSION, BENIGN ESSENTIAL 02/22/2011 FINLEY SHOE PATTERNMAKER, AFUA BOSWELL 278.01 OBESITY, MORBID (BMI >40) 02/22/2011 FINLEY SHOE PATTERNMAKER, AFUA BOSWELL 401.1 HYPERTENSION, BENIGN ESSENTIAL 02/22/2011 FINLEY SHOE PATTERNMAKER, AFUA LIZAMAH 278.01 OBESITY, MORBID (BMI >40) 02/22/2011 FINLEY SHOE PATTERNMAKER, AFUA LIZAMAH 401.1 HYPERTENSION, BENIGN ESSENTIAL 02/22/2011 FINLEY SHOE PATTERNMAKER, AFUA ANDREIA 278.01 OBESITY, MORBID (BMI >40) 02/22/2011 FINLEY SHOE PATTERNMAKER, AFUA BOSWELL 401.1 HYPERTENSION, BENIGN ESSENTIAL 02/22/2011 FINLEY SHOE PATTERNMAKER, AFUA LIZAMAH 278.01 OBESITY, MORBID (BMI >40) 02/22/2011 FINLEY SHOE PATTERNMAKER, AFUA LIZAMAH 401.1 HYPERTENSION, BENIGN ESSENTIAL 02/22/2011 FINLEY SHOE PATTERNMAKER, AFUA ANDREIA 278.01 OBESITY, MORBID (BMI >40) 02/22/2011 FINLEY SHOE PATTERNMAKER, AFUA ANDREIA 401.1 HYPERTENSION, BENIGN ESSENTIAL 02/22/2011 LILA SHOE PATTERNMAKER, BRYAN 278.01 OBESITY, MORBID (BMI >40) 02/22/2011 LILA SHOE PATTERNMAKER, BRYAN 401.1 HYPERTENSION, BENIGN ESSENTIAL 02/22/2011 YVAS ALVARO CHAPMAN 278.01 OBESITY, MORBID (BMI >40) 02/22/2011 ASAEL CHAPMAN ALVARO K 401.1 HYPERTENSION, BENIGN ESSENTIAL 02/22/2011 LILA SHOE PATTERNMAKER, BRYAN 278.01 OBESITY, MORBID (BMI >40) 02/22/2011 LILA SHOE PATTERNMAKER, BRYAN 401.1 HYPERTENSION, BENIGN ESSENTIAL 02/22/2011 LILA SHOE PATTERNMAKER, BRYAN 278.01 OBESITY, MORBID (BMI >40) 02/22/2011 LILA SHOE PATTERNMAKER, BRYAN 401.1 HYPERTENSION, BENIGN ESSENTIAL 02/22/2011 LILA SHOE PATTERNMAKER, BRYAN 278.01 OBESITY, MORBID (BMI >40) 02/22/2011 LILA SHOE PATTERNMAKER, BRYAN 401.1 HYPERTENSION, BENIGN ESSENTIAL 02/22/2011 LILA SHOE PATTERNMAKER, BRYAN 278.01 OBESITY, MORBID (BMI >40) 02/22/2011 LILA SHOE PATTERNMAKER, BRYAN 401.1 HYPERTENSION, BENIGN ESSENTIAL 02/22/2011 GEE VYAS DOA K 278.01 OBESITY, MORBID (BMI >40) 02/22/2011 GEE VYAS DOA K 401.1 HYPERTENSION, BENIGN ESSENTIAL 02/22/2011 LILA SHOE PATTERNMAKER, BRYAN 278.01 OBESITY, MORBID (BMI >40) 02/22/2011 LILA SHOE PATTERNMAKER, BRYAN 401.1 HYPERTENSION, BENIGN ESSENTIAL 02/22/2011 LILA SHOE PATTERNMAKER, BRYAN 278.01 OBESITY, MORBID (BMI >40) 02/22/2011 LILA SHOE PATTERNMAKER, BRYAN 401.1 HYPERTENSION, BENIGN ESSENTIAL 02/22/2011 LILA SHOE PATTERNMAKER, BRYAN 278.01 OBESITY, MORBID (BMI >40) 02/22/2011 LILA SHOE PATTERNMAKER, BRYAN 401.1 HYPERTENSION, BENIGN ESSENTIAL 02/22/2011 LILA SHOE PATTERNMAKER, BRYAN 278.01 OBESITY, MORBID (BMI >40) 02/22/2011 LILA SHOE PATTERNMAKER, BRYAN 401.1 HYPERTENSION, BENIGN ESSENTIAL 02/22/2011 LILA SHOE PATTERNMAKER, BRYAN 278.01 OBESITY, MORBID (BMI >40) 02/22/2011 LILA SHOE PATTERNMAKER, BRYAN 401.1 HYPERTENSION, BENIGN ESSENTIAL 02/22/2011 ASAEL CHAPMAN ALVARO K 278.01 OBESITY, MORBID (BMI >40) 02/22/2011 ASAEL CHAPMAN ALVARO K 401.1 HYPERTENSION, BENIGN ESSENTIAL 02/22/2011 ASAEL CHAPMAN ALVARO K 278.01 OBESITY, MORBID (BMI >40) 02/22/2011 ASAEL ALVARO CHAPMAN Alejandro 401.1 HYPERTENSION, BENIGN ESSENTIAL 02/22/2011 LILA SHOE PATTERNMAKER, BRYAN 278.01 OBESITY, MORBID (BMI >40) 02/22/2011 LILA SHOE PATTERNMAKER, BRYAN 401.1 HYPERTENSION, BENIGN ESSENTIAL 02/22/2011 LILA SHOE PATTERNMAKER, BRYAN 278.01 OBESITY, MORBID (BMI >40) 02/22/2011 LILA SHOE PATTERNMAKER, BRYAN 401.1 HYPERTENSION, BENIGN ESSENTIAL 02/22/2011 LILA SHOE PATTERNMAKER, BRYAN 278.01 OBESITY, MORBID (BMI >40) 02/22/2011 LILA SHOE PATTERNMAKER, BRYAN 401.1 HYPERTENSION, BENIGN ESSENTIAL 02/22/2011 LILA SHOE PATTERNMAKER, BYRAN 278.01 OBESITY, MORBID (BMI >40) 02/22/2011 LILA SHOE PATTERNMAKER, BRYAN 401.1 HYPERTENSION, BENIGN ESSENTIAL 02/22/2011 LILA SHOE PATTERNMAKER, BRYAN 278.01 OBESITY, MORBID (BMI >40) 02/22/2011 LILA SHOE PATTERNMAKER, BRYAN 401.1 HYPERTENSION, BENIGN ESSENTIAL 02/26/2011 TUSHAR CHAUDHRY AFUA ANDREIA 244.9 UNSPECIFIED ACQUIRED HYPOTHYROIDISM 02/26/2011 TUSHAR CHAUDHRY AFUA ANDREIA 250.00 DIABETES MELLITUS WITHOUT MENTION OF COMPLICATION TYPE II OR UNSPECIFIED TYPE NOT STATED UNCONTROLLED 02/26/2011 TUSHAR CHAUDHRY AFUA ANDREIA 719.47 PAIN IN JOINT INVOLVING ANKLE AND FOOT 02/26/2011 TUSHAR CHAUDHRY AFUA ANDREIA V70.0 GENERAL MEDICAL EXAM, ROUTINE, AT HEALTH CARE FACILITY 02/26/2011 AFUA FINLEY APRN 244.9 UNSPECIFIED ACQUIRED HYPOTHYROIDISM 02/26/2011 TUSHAR CHAUDHRY AFUA ANDREIA 250.00 DIABETES MELLITUS WITHOUT MENTION OF COMPLICATION TYPE II OR UNSPECIFIED TYPE NOT STATED UNCONTROLLED 02/26/2011 TUSHAR CHAUDHRY AFUA ANDREIA 719.47 PAIN IN JOINT INVOLVING ANKLE AND FOOT 02/26/2011 AFUA FINLEY APRN V70.0 GENERAL MEDICAL EXAM, ROUTINE, AT HEALTH CARE FACILITY 02/26/2011 244.9 UNSPECIFIED ACQUIRED HYPOTHYROIDISM 02/26/2011 250.00 DIABETES MELLITUS WITHOUT MENTION OF COMPLICATION TYPE II OR UNSPECIFIED TYPE NOT STATED UNCONTROLLED 02/26/2011 719.47 PAIN IN JOINT INVOLVING ANKLE AND FOOT 02/26/2011 V70.0 GENERAL MEDICAL EXAM, ROUTINE, AT HEALTH CARE FACILITY 02/26/2011 TUSHAR CHAUDHRY AFUA BOSWELL 244.9 UNSPECIFIED ACQUIRED HYPOTHYROIDISM 02/26/2011 TUSHAR CHAUDHRYAFUA 250.00 DIABETES MELLITUS WITHOUT MENTION OF COMPLICATION TYPE II OR UNSPECIFIED TYPE NOT STATED UNCONTROLLED 02/26/2011 TUSHAR CHAUDHRY AFUA BOSWELL 719.47 PAIN IN JOINT INVOLVING ANKLE AND FOOT 02/26/2011 TUSHAR CHAUDHRY AFUA BOSWELL V70.0 GENERAL MEDICAL EXAM, ROUTINE, AT HEALTH CARE FACILITY 02/26/2011 244.9 UNSPECIFIED ACQUIRED HYPOTHYROIDISM 02/26/2011 250.00 DIABETES MELLITUS WITHOUT MENTION OF COMPLICATION TYPE II OR UNSPECIFIED TYPE NOT STATED UNCONTROLLED 02/26/2011 719.47 PAIN IN JOINT INVOLVING ANKLE AND FOOT 02/26/2011 V70.0 GENERAL MEDICAL EXAM, ROUTINE, AT HEALTH CARE FACILITY 02/26/2011 TUSHAR CHAUDHRY AFUA BOSWELL 244.9 UNSPECIFIED ACQUIRED HYPOTHYROIDISM 02/26/2011 TUSHAR CHAUDHRY AFUA BOSWELL 250.00 DIABETES MELLITUS WITHOUT MENTION OF COMPLICATION TYPE II OR UNSPECIFIED TYPE NOT STATED UNCONTROLLED 02/26/2011 TUSHAR CHAUDHRY AFUA BOSWELL 719.47 PAIN IN JOINT INVOLVING ANKLE AND FOOT 02/26/2011 TUSHAR CHAUDHRY AFUA BOSWELL V70.0 GENERAL MEDICAL EXAM, ROUTINE, AT HEALTH CARE FACILITY 02/26/2011 244.9 UNSPECIFIED ACQUIRED HYPOTHYROIDISM 02/26/2011 250.00 DIABETES MELLITUS WITHOUT MENTION OF COMPLICATION TYPE II OR UNSPECIFIED TYPE NOT STATED UNCONTROLLED 02/26/2011 719.47 PAIN IN JOINT INVOLVING ANKLE AND FOOT 02/26/2011 V70.0 GENERAL MEDICAL EXAM, ROUTINE, AT HEALTH CARE FACILITY 02/26/2011 244.9 UNSPECIFIED ACQUIRED HYPOTHYROIDISM 02/26/2011 250.00 DIABETES MELLITUS WITHOUT MENTION OF COMPLICATION TYPE II OR UNSPECIFIED TYPE NOT STATED UNCONTROLLED 02/26/2011 719.47 PAIN IN JOINT INVOLVING ANKLE AND FOOT 02/26/2011 V70.0 GENERAL MEDICAL EXAM, ROUTINE, AT HEALTH CARE FACILITY 02/26/2011 244.9 UNSPECIFIED ACQUIRED HYPOTHYROIDISM 02/26/2011 250.00 DIABETES MELLITUS WITHOUT MENTION OF COMPLICATION TYPE II OR UNSPECIFIED TYPE NOT STATED UNCONTROLLED 02/26/2011 719.47 PAIN IN JOINT INVOLVING ANKLE AND FOOT 02/26/2011 V70.0 GENERAL MEDICAL EXAM, ROUTINE, AT HEALTH CARE FACILITY 02/26/2011 244.9 UNSPECIFIED ACQUIRED HYPOTHYROIDISM 02/26/2011 250.00 DIABETES MELLITUS WITHOUT MENTION OF COMPLICATION TYPE II OR UNSPECIFIED TYPE NOT STATED UNCONTROLLED 02/26/2011 719.47 PAIN IN JOINT INVOLVING ANKLE AND FOOT 02/26/2011 V70.0 GENERAL MEDICAL EXAM, ROUTINE, AT HEALTH CARE FACILITY 02/26/2011 244.9 UNSPECIFIED ACQUIRED HYPOTHYROIDISM 02/26/2011 250.00 DIABETES MELLITUS WITHOUT MENTION OF COMPLICATION TYPE II OR UNSPECIFIED TYPE NOT STATED UNCONTROLLED 02/26/2011 719.47 PAIN IN JOINT INVOLVING ANKLE AND FOOT 02/26/2011 V70.0 GENERAL MEDICAL EXAM, ROUTINE, AT HEALTH CARE FACILITY 02/26/2011 244.9 UNSPECIFIED ACQUIRED HYPOTHYROIDISM 02/26/2011 250.00 DIABETES MELLITUS WITHOUT MENTION OF COMPLICATION TYPE II OR UNSPECIFIED TYPE NOT STATED UNCONTROLLED 02/26/2011 719.47 PAIN IN JOINT INVOLVING ANKLE AND FOOT 02/26/2011 V70.0 GENERAL MEDICAL EXAM, ROUTINE, AT HEALTH CARE FACILITY 02/26/2011 244.9 UNSPECIFIED ACQUIRED HYPOTHYROIDISM 02/26/2011 250.00 DIABETES MELLITUS WITHOUT MENTION OF COMPLICATION TYPE II OR UNSPECIFIED TYPE NOT STATED UNCONTROLLED 02/26/2011 719.47 PAIN IN JOINT INVOLVING ANKLE AND FOOT 02/26/2011 V70.0 GENERAL MEDICAL EXAM, ROUTINE, AT HEALTH CARE FACILITY 02/26/2011 AFUA FINLEY APRN 244.9 UNSPECIFIED ACQUIRED HYPOTHYROIDISM 02/26/2011 AFUA FINLEY APRN 250.00 DIABETES MELLITUS WITHOUT MENTION OF COMPLICATION TYPE II OR UNSPECIFIED TYPE NOT STATED UNCONTROLLED 02/26/2011 AFUA FINLEY APRN 719.47 PAIN IN JOINT INVOLVING ANKLE AND FOOT 02/26/2011 AFUA FINLEY APRN V70.0 GENERAL MEDICAL EXAM, ROUTINE, AT HEALTH CARE FACILITY 02/26/2011 AFUA FINLEY APRN 244.9 UNSPECIFIED ACQUIRED HYPOTHYROIDISM 02/26/2011 AFUA FINLEY APRN 250.00 DIABETES MELLITUS WITHOUT MENTION OF COMPLICATION TYPE II OR UNSPECIFIED TYPE NOT STATED UNCONTROLLED 02/26/2011 AFUA FINLEY APRN 719.47 PAIN IN JOINT INVOLVING ANKLE AND FOOT 02/26/2011 AUFA FINLEY APRN V70.0 GENERAL MEDICAL EXAM, ROUTINE, AT HEALTH CARE FACILITY 02/26/2011 TUSHAR GAYNAFUA 244.9 UNSPECIFIED ACQUIRED HYPOTHYROIDISM 02/26/2011 FINLEY SHOE PATTERNMAKERAFUA 250.00 DIABETES MELLITUS WITHOUT MENTION OF COMPLICATION TYPE II OR UNSPECIFIED TYPE NOT STATED UNCONTROLLED 02/26/2011 TUSHAR GAYNAFUA 719.47 PAIN IN JOINT INVOLVING ANKLE AND FOOT 02/26/2011 FINLEY RICHA AFUA BOSWELL V70.0 GENERAL MEDICAL EXAM, ROUTINE, AT HEALTH CARE FACILITY 02/26/2011 TUSHAR GAYNiharika AFUA BOSWELL 244.9 UNSPECIFIED ACQUIRED HYPOTHYROIDISM 02/26/2011 FINLEY SHOE PATTERNMAKERAFUA 250.00 DIABETES MELLITUS WITHOUT MENTION OF COMPLICATION TYPE II OR UNSPECIFIED TYPE NOT STATED UNCONTROLLED 02/26/2011 TUSHAR GAYNiharika AFUA BOSWELL 719.47 PAIN IN JOINT INVOLVING ANKLE AND FOOT 02/26/2011 FINLEY RICHA AFUA BOSWELL V70.0 GENERAL MEDICAL EXAM, ROUTINE, AT HEALTH CARE FACILITY 02/26/2011 TUSHAR GAYNiharika AFUA BOSWELL 244.9 UNSPECIFIED ACQUIRED HYPOTHYROIDISM 02/26/2011 TUSHAR GAYNiharika AFUA BOSWELL 250.00 DIABETES MELLITUS WITHOUT MENTION OF COMPLICATION TYPE II OR UNSPECIFIED TYPE NOT STATED UNCONTROLLED 02/26/2011 FINLEY RICHA AFUA BOSWELL 719.47 PAIN IN JOINT INVOLVING ANKLE AND FOOT 02/26/2011 TUSHAR GAYNiharika AFUA BOSWELL V70.0 GENERAL MEDICAL EXAM, ROUTINE, AT HEALTH CARE FACILITY 02/26/2011 TUSHAR GAYNiharika AFUA BOSWELL 244.9 UNSPECIFIED ACQUIRED HYPOTHYROIDISM 02/26/2011 TUSHAR GAYNiharika AFUA BOSWELL 250.00 DIABETES MELLITUS WITHOUT MENTION OF COMPLICATION TYPE II OR UNSPECIFIED TYPE NOT STATED UNCONTROLLED 02/26/2011 FINLEY SHOE PATTERNMAKER, AFUA BOSWELL 719.47 PAIN IN JOINT INVOLVING ANKLE AND FOOT 02/26/2011 TUSHAR GAYNiharika AFUA BOSWELL V70.0 GENERAL MEDICAL EXAM, ROUTINE, AT HEALTH CARE FACILITY 02/26/2011 TUSHAR GAYNiharika AFUA BOSWELL 244.9 UNSPECIFIED ACQUIRED HYPOTHYROIDISM 02/26/2011 TUSHAR GAYNAFUAH 250.00 DIABETES MELLITUS WITHOUT MENTION OF COMPLICATION TYPE II OR UNSPECIFIED TYPE NOT STATED UNCONTROLLED 02/26/2011 FINLEYAFUA VENTURA APRN 719.47 PAIN IN JOINT INVOLVING ANKLE AND FOOT 02/26/2011 AFUA FINLEY APRN V70.0 GENERAL MEDICAL EXAM, ROUTINE, AT HEALTH CARE FACILITY 02/26/2011 TUSHAR GAYNAFUA 244.9 UNSPECIFIED ACQUIRED HYPOTHYROIDISM 02/26/2011 AFUA FINLEY APRN 250.00 DIABETES MELLITUS WITHOUT MENTION OF COMPLICATION TYPE II OR UNSPECIFIED TYPE NOT STATED UNCONTROLLED 02/26/2011 TUSHAR GAYNAFUA 719.47 PAIN IN JOINT INVOLVING ANKLE AND FOOT 02/26/2011 AFUA FINLEY APRN V70.0 GENERAL MEDICAL EXAM, ROUTINE, AT HEALTH CARE FACILITY 02/26/2011 TUSHAR GAYNAFUA 244.9 UNSPECIFIED ACQUIRED HYPOTHYROIDISM 02/26/2011 AFUA FINLEY APRN 250.00 DIABETES MELLITUS WITHOUT MENTION OF COMPLICATION TYPE II OR UNSPECIFIED TYPE NOT STATED UNCONTROLLED 02/26/2011 TUSHAR GAYNAFUA 719.47 PAIN IN JOINT INVOLVING ANKLE AND FOOT 02/26/2011 TUSHAR GAYNAFUA V70.0 GENERAL MEDICAL EXAM, ROUTINE, AT HEALTH CARE FACILITY 02/26/2011 ETMO SHARP APRNETTE 244.9 UNSPECIFIED ACQUIRED HYPOTHYROIDISM 02/26/2011 LILA CHAUDHRY BRYAN 250.00 DIABETES MELLITUS WITHOUT MENTION OF COMPLICATION TYPE II OR UNSPECIFIED TYPE NOT STATED UNCONTROLLED 02/26/2011 LILA CHAUDHRY BRYAN 719.47 PAIN IN JOINT INVOLVING ANKLE AND FOOT 02/26/2011 LILA CHAUDHRY BRYAN V70.0 GENERAL MEDICAL EXAM, ROUTINE, AT HEALTH CARE FACILITY 02/26/2011 ASAEL DOGEEA K 244.9 UNSPECIFIED ACQUIRED HYPOTHYROIDISM 02/26/2011 ASAEL DO ALVARO K 250.00 DIABETES MELLITUS WITHOUT MENTION OF COMPLICATION TYPE II OR UNSPECIFIED TYPE NOT STATED UNCONTROLLED 02/26/2011 VYAS DO ALVARO K 719.47 PAIN IN JOINT INVOLVING ANKLE AND FOOT 02/26/2011 VYAS DO ALVARO K V70.0 GENERAL MEDICAL EXAM, ROUTINE, AT HEALTH CARE FACILITY 02/26/2011 LILA SHOE PATTERNMAKER, BRYAN 244.9 UNSPECIFIED ACQUIRED HYPOTHYROIDISM 02/26/2011 LILA RICHA BRYAN 250.00 DIABETES MELLITUS WITHOUT MENTION OF COMPLICATION TYPE II OR UNSPECIFIED TYPE NOT STATED UNCONTROLLED 02/26/2011 LILA SHOE PATTERNMAKER, BRYAN 719.47 PAIN IN JOINT INVOLVING ANKLE AND FOOT 02/26/2011 LILA SHOE PATTERNMAKER, BRYAN V70.0 GENERAL MEDICAL EXAM, ROUTINE, AT HEALTH CARE FACILITY 02/26/2011 LILA SHOE PATTERNMAKER, BRYAN 244.9 UNSPECIFIED ACQUIRED HYPOTHYROIDISM 02/26/2011 LILA SHOE PATTERNMAKER, BRYAN 250.00 DIABETES MELLITUS WITHOUT MENTION OF COMPLICATION TYPE II OR UNSPECIFIED TYPE NOT STATED UNCONTROLLED 02/26/2011 LILA SHOE PATTERNMAKER BRYAN 719.47 PAIN IN JOINT INVOLVING ANKLE AND FOOT 02/26/2011 LILA SHOE PATTERNMAKER, BRYAN V70.0 GENERAL MEDICAL EXAM, ROUTINE, AT HEALTH CARE FACILITY 02/26/2011 LILA SHOE PATTERNMAKER, BRYAN 244.9 UNSPECIFIED ACQUIRED HYPOTHYROIDISM 02/26/2011 LILA SHOE PATTERNMAKER, BRYAN 250.00 DIABETES MELLITUS WITHOUT MENTION OF COMPLICATION TYPE II OR UNSPECIFIED TYPE NOT STATED UNCONTROLLED 02/26/2011 LILADINA CHAUDHRY, BRYAN 719.47 PAIN IN JOINT INVOLVING ANKLE AND FOOT 02/26/2011 LILADINA CHAUDHRY, BRYAN V70.0 GENERAL MEDICAL EXAM, ROUTINE, AT HEALTH CARE FACILITY 02/26/2011 LILA SHOE PATTERNMAKER, BRYAN 244.9 UNSPECIFIED ACQUIRED HYPOTHYROIDISM 02/26/2011 LILA SHOE PATTERNMAKER, BRYAN 250.00 DIABETES MELLITUS WITHOUT MENTION OF COMPLICATION TYPE II OR UNSPECIFIED TYPE NOT STATED UNCONTROLLED 02/26/2011 LILADINA CHAUDHRY, BRYAN 719.47 PAIN IN JOINT INVOLVING ANKLE AND FOOT 02/26/2011 LILA SHOE PATTERNMAKER, BRYAN V70.0 GENERAL MEDICAL EXAM, ROUTINE, AT HEALTH CARE FACILITY 02/26/2011 ALVARO VYAS DO K 244.9 UNSPECIFIED ACQUIRED HYPOTHYROIDISM 02/26/2011 GEE VYAS DOA K 250.00 DIABETES MELLITUS WITHOUT MENTION OF COMPLICATION TYPE II OR UNSPECIFIED TYPE NOT STATED UNCONTROLLED 02/26/2011 ALVARO VYAS DO K 719.47 PAIN IN JOINT INVOLVING ANKLE AND FOOT 02/26/2011 ALVARO VYAS DO K V70.0 GENERAL MEDICAL EXAM, ROUTINE, AT HEALTH CARE FACILITY 02/26/2011 LILA SHOE PATTERNMAKER, BRYAN 244.9 UNSPECIFIED ACQUIRED HYPOTHYROIDISM 02/26/2011 LILA SHOE PATTERNMAKER, BRYAN 250.00 DIABETES MELLITUS WITHOUT MENTION OF COMPLICATION TYPE II OR UNSPECIFIED TYPE NOT STATED UNCONTROLLED 02/26/2011 LILA SHOE PATTERNMAKER, BRYAN 719.47 PAIN IN JOINT INVOLVING ANKLE AND FOOT 02/26/2011 LILA SHOE PATTERNMAKER, BRYAN V70.0 GENERAL MEDICAL EXAM, ROUTINE, AT HEALTH CARE FACILITY 02/26/2011 LILA CHAUDHRY BRYAN 244.9 UNSPECIFIED ACQUIRED HYPOTHYROIDISM 02/26/2011 LILA SHOE PATTERNMAKER, BRYAN 250.00 DIABETES MELLITUS WITHOUT MENTION OF COMPLICATION TYPE II OR UNSPECIFIED TYPE NOT STATED UNCONTROLLED 02/26/2011 LILA CHAUDHRY BRYAN 719.47 PAIN IN JOINT INVOLVING ANKLE AND FOOT 02/26/2011 LILA SHOE PATTERNMAKER, BRYAN V70.0 GENERAL MEDICAL EXAM, ROUTINE, AT HEALTH CARE FACILITY 02/26/2011 LILA CHAUDHRY BRYAN 244.9 UNSPECIFIED ACQUIRED HYPOTHYROIDISM 02/26/2011 LILA CHAUDHRY, BRYAN 250.00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 USE DISORDER 12/06/2014 OLGA LUCERO MD R Ot 530.81 ESOPHAGEAL REFLUX 12/06/2014 OLGA LUCERO MD R Ot 599.0 URIN TRACT INFECTION NOS 12/06/2014 OLGA LUCERO MD R Ot V06.1 [id number], COMBINED [ 12/06/2014 OLGA LUCERO MD R Ot V58.67 LONG-TERM (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 INSULIN 06/12/2015 GAURANG STANTON DO Ot 339.12 CHRONIC TENSION TYPE HEADACHE 06/12/2015 GAURANG STANTON DO Ot 784.0 HEADACHE 07/30/2015 JAZMINE GUERRA, OLGA R Ot 786.2 08/05/2015 JAZMINE GUERRA, OLGA R Ot 786.2 08/11/2015 JAZMINE GUERRA, OLGA R Ot R19.7 08/19/2015 ADAIR LUCERO Ot E11.9 09/01/2015 ADAIR LUCERO Ot E11.9 09/23/2015 JAZMINE GUERRA, OLGA R Ot 787.91 09/23/2015 JAZMINE GUERRA, OLGA R Ot R19.7 10/09/2015 JAZMINE GUERRA, OLGA R Ot 787.91 10/09/2015 JAZMINE GUERRA, OLGA R Ot R19.7 10/11/2015 DARRICK VERDUZCO MD Ot F17.210 NICOTINE DEPENDENCE, CIGARETTES, UNCOMPL 10/11/2015 DAX GUERRA, DARRICK Fiore Ot G43.909 MIGRAINE, UNSP, NOT INTRACTABLE, WITHOUT 10/23/2015 JAZMINE GUERRA, OLGA R Ot 787.91 10/23/2015 JAZMINE GUERRA, OLGA R Ot R19.7 11/05/2015 JAZMINE GUERRA, OLGA R Ot R19.7 DIARRHEA, UNSPECIFIED 11/12/2015 SUYAPA GUERRA, TREVIN Ot K64.0 FIRST DEGREE HEMORRHOIDS 12/10/2015 JAZMINE GUERRA, OLGA R Ot E03.9 12/17/2015 JAZMINE GUERRA, OLGA R Ot E03.9 01/29/2016 Ot 729.5 01/29/2016 Ot 959.7 01/29/2016 Ot E000.8 01/29/2016 Ot E849.0 01/29/2016 Ot E888.9 01/29/2016 Ot 250.00 01/29/2016 Ot 401.9 01/29/2016 Ot V58.69 01/29/2016 Ot V58.83 01/29/2016 Ot 250.00 01/29/2016 JAZMINE GUERRA, OLGA R Ot 787.02 01/29/2016 JAZMINE GUERRA, OLGA R Ot 789.03 01/29/2016 JAZMINE GUERRA, OLGA R Ot 789.04 01/29/2016 JAZMINE GUERRA, OLGA R Ot 571.8 01/29/2016 JAZMINE GUERRA, OLGA R Ot 592.0 01/29/2016 JAZMINE GUERRA, OLGA R Ot 719.7 01/29/2016 [facility] NURSE Ot V58.69 01/29/2016 [facility] AC[facility] C[facility] NURSE Ot V58.83 01/29/2016 JAZMINE ADAIR Boland ACUTE CARE NURSE Ot 250.00 01/29/2016 JAZMINE ADAIR Boland ACUTE CARE NURSE Ot 244.9 01/29/2016 JAZMINE ADAIR Boland ACUTE CARE NURSE Ot 250.00 01/29/2016 JAZMINE GUERRA, OLGA R Ot 571.8 01/29/2016 JAZMINE GUERRA, OLGA R Ot 789.01 01/29/2016 JAZMINE GUERRA, OLGA R Ot 789.01 01/29/2016 JAZMINE GUERRA, OLGA R Ot 793.3 01/29/2016 [place] E[facility]U CHAPMAN Ot 575.11 01/29/[facility]63 01[facility]29/[facility] V74.8 01/29/2016 JAZMINE ADAIR Kya ACUTE CARE NURSE Ot 250.01 01/29/2016 JAZMINE ADAIR Boland ACUTE CARE NURSE Ot 250.00 01/29/2016 JAZMINE ADAIR Boland ACUTE CARE NURSE Ot V58.67 01/29/2016 JAZMINE GUERRA, OLGA R Ot 786.2 01/29/2016 JAZMINE ADAIR Kya ACUTE CARE NURSE Ot E11.9 01/29/2016 SUYAPA GUERRA, TREVIN Ot R19.4 01/29/2016 SUYAPA GUERRA, JEAN-CLAUDEAAKI Ot Z01.818 01/29/2016 JAZMINE GUERRA, OLGA R Ot 787.91 01/29/2016 JAZMINE GUERRA, OLGA R Ot R19.7 01/29/2016 JAZMINE GUERRA, OLGA R Ot E03.9 01/30/2016 JAZMINE GUERRA, OLGA R Ot E03.9 02/18/2016 JAZMINE GUERRA, OLGA R Ot E03.9 HYPOTHYROIDISM, UNSPECIFIED 03/03/2016 JAZMINE GUERRA, OLGA R Ot E03.9 HYPOTHYROIDISM, UNSPECIFIED 05/25/2016 ROMY GAURANG CHAPMAN Ot F17.210 NICOTINE DEPENDENCE, CIGARETTES, UNCOMPL 05/25/2016 ROMY GAURANG CHAPMAN Ot M54.5 LOW BACK PAIN 05/25/2016 ROMY DO, GAURANG Allen Ot N39.0 URINARY TRACT INFECTION, SITE NOT SPECIF 05/25/2016 ROMY GAURANG CHAPMAN Ot S39.012A STRAIN OF MUSCLE, FASCIA AND TENDON OF L 05/25/2016 ROMY GAURANG CHAPMAN K Ot X58.XXXA EXPOSURE TO OTHER SPECIFIED FACTORS, INI 05/25/2016 ROMY GAURANG CHAPMAN Ot Y92.[address] IN SINGLE[place]FAMILY (PRIVATE[place] 05/25/2016 GAURANG STANTON DO Ot Y99.8 OTHER EXTERNAL CAUSE STATUS 05/26/2016 ROMY GAURANG CHAPMAN Ot F17.210 NICOTINE DEPENDENCE, CIGARETTES, UNCOMPL 05/26/2016 ROMY GAURANG CHAPMAN Ot M54.5 LOW BACK PAIN 05/26/2016 ROMY GAURANG CHAPMAN Ot N39.0 URINARY TRACT INFECTION, SITE NOT SPECIF 05/26/2016 ROMY GAURANG CHAPMAN Ot S39.012A STRAIN OF MUSCLE, FASCIA AND TENDON OF L 05/26/2016 ROMY GAURANG CHAPMAN Ot X58.XXXA EXPOSURE TO OTHER SPECIFIED FACTORS, INI 05/26/2016 ROMY GAURANG CHAPMAN Ot Y92.[address] IN SINGLE-FAMILY (PRIVATE) [place]ISH 05/26/2016 ROMY CHAPMAN GAURANG Allne Ot Y99.8 OTHER EXTERNAL CAUSE STATUS 06/04/2016 Ot 729.5 PAIN IN LIMB 06/04/2016 Ot 959.7 LOWER LEG INJURY NOS 06/04/2016 Ot E000.8 OTHER EXTERNAL CAUSE STATUS 06/04/2016 Ot E849.0 ACCIDENT IN HOME 06/04/2016 Ot E888.9 FALL NOS 06/04/2016 Ot 250.00 DIAB [place] WO COMPL, TYPE II OR UNSPEC TY 06/04/2016 Ot 401.9 HYPERTENSION NOS 06/04/2016 Ot V58.69 OTH MED,LT,CURRENT USE 06/04/2016 Ot V58.83 ENCOUNTER FOR THERAPEUTIC DRUG MONITORIN 06/04/2016 Ot 250.00 DIAB [place] WO COMPL, TYPE II OR UNSPEC TY 06/04/2016 OLGA LUCERO MD R Ot 787.02 NAUSEA ALONE 06/04/2016 OLGA LUCERO MD R Ot 789.03 ABDOMINAL PAIN, RIGHT LOWER QUADRANT 06/04/2016 OLGA LUCERO MD R Ot 789.04 ABDOMINAL PAIN, LEFT LOWER QUADRANT 06/04/2016 OLGA LUCERO MD R Ot 571.8 CHRONIC LIVER DIS NEC 06/04/2016 OLGA LUCERO MD R Ot 592.0 CALCULUS OF KIDNEY 06/04/2016 OLGA LUCERO MD R Ot 719.7 DIFFICULTY IN WALKING 06/04/2016 [facility] FINLEY [facility] C[facility] NURSE Ot V58.69 OT MED,LT,CURRENT USE 06/04/2016 AFUA FILNEY ACUTE CARE NURSE Ot V58.83 ENCOUNTER FOR THERAPEUTIC DRUG MONITORIN 06/04/2016 ADAIR LUCEROP Ot 250.00 DIAB [place] WO COMPL, TYPE II OR UNSPEC TY 06/04/2016 ADAIR LUCERO Ot 244.9 HYPOTHYROIDISM NOS 06/04/2016 ADAIR LUCERO Ot 250.00 DIAB [place] WO COMPL, TYPE II OR UNSPEC TY 06/04/2016 OLGA LUCERO MD R Ot 571.8 CHRONIC LIVER DIS NEC 06/04/2016 JAZMINE GUERRA, OLGA R Ot 789.01 ABDOMINAL PAIN, RIGHT UPPER QUADRANT 06/04/2016 OLGA LUCERO MD R Ot 789.01 ABDOMINAL PAIN, RIGHT UPPER QUADRANT 06/04/2016 JAZMINE GUERRA, OLGA R Ot 793.3 NOSP (ABN) FINDINGS ON RADIOLOGICAL OT 06/04/2016 ESAU BERRY DO Ot 575.11 CHRONIC CHOLECYSTITIS 06/04/2016 ESAU BERRY DO Ot V72.63 PRE-PROCEDURAL LABORATORY EXAMINATION 06/04/2016 ESAU BERRY DO Ot V74.8 SCREEN-BACTERIAL DIS NEC 06/04/2016 ADAIR LUCEROP Ot 250.01 DIAB [place] WO COMPL, TYPE I [JUVENILE TYP 06/04/2016 ADAIR LUCEROP Ot 250.00 DIAB [place] WO COMPL, TYPE II OR UNSPEC TY 06/04/2016 ADAIR LUCEROP Ot V58.67 LONG-TERM (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 INSULIN 06/04/2016 OLGA LUCERO MD R Ot 786.2 COUGH 06/04/2016 ADAIR LUCERO Ot E11.9 TYPE 2 DIABETES MELLITUS WITHOUT COMPLIC 06/04/2016 SUYAPA GUERRA, TREVIN Ot R19.4 CHANGE IN BOWEL HABIT 06/04/2016 SUYAPA GUERRA, TREVIN Ot Z01.818 ENCOUNTER FOR OTHER PREPROCEDURAL EXAMIN 06/04/2016 OLGA LUCERO MD R Ot 787.91 DIARRHEA 06/04/2016 OLGA LUCERO MD R Ot R19.7 DIARRHEA, UNSPECIFIED 06/04/2016 OLGA LUCERO MD R Ot E03.9 HYPOTHYROIDISM, UNSPECIFIED 06/04/2016 OLGA LUCERO MD R Ot E03.9 HYPOTHYROIDISM, UNSPECIFIED 06/07/2016 BRENDA LUCERO MDYD R Ot M25.551 PAIN IN RIGHT HIP 06/07/2016 OLGA LUCERO MD R Ot M47.894 OTHER SPONDYLOSIS, THORACIC REGION 06/07/2016 OLGA LUCERO MD R Ot 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, 06/07/2016 OLGA LUCERO MD R Ot M54.16 RADICULOPATHY, LUMBAR REGION 06/07/2016 OLGA LUCERO MD R Ot N83.20 UNSPECIFIED OVARIAN CYSTS 06/07/2016 JAZMINE GUERRA OLGA R Ot N88.8 OTHER SPECIFIED NONINFLAMMATORY DISORDER 06/08/2016 JAZMINE GUERRA OLGA R Ot M25.551 PAIN IN RIGHT HIP 06/08/2016 JAZMINE GUERRA OLGA R Ot M47.894 OTHER SPONDYLOSIS, THORACIC REGION 06/08/2016 JAZMINE GUERRA OLGA R Ot 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, 06/08/2016 JAZMINE GUERRA OLGA R Ot M54.16 RADICULOPATHY, LUMBAR REGION 06/08/2016 OLGA LUCERO MD R Ot N83.20 UNSPECIFIED OVARIAN CYSTS 06/08/2016 JAZMINE GUERRA OLGA R Ot N88.8 OTHER SPECIFIED NONINFLAMMATORY DISORDER 06/10/2016 JAZMINE GUERRA OLGA R Ot M25.551 PAIN IN RIGHT HIP 06/10/2016 JAZMINE GUERRA OLGA R Ot M47.894 OTHER SPONDYLOSIS, THORACIC REGION 06/10/2016 JAZMINE GUERRA OLGA R Ot 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, 06/10/2016 JAZMINE GUERRA OLGA R Ot M54.16 RADICULOPATHY, LUMBAR REGION 06/10/2016 JAZMINE GUERRA OLGA R Ot N83.20 UNSPECIFIED OVARIAN CYSTS 06/10/2016 JAZMINE GUERAR OLGA R Ot N88.8 OTHER SPECIFIED NONINFLAMMATORY DISORDER 06/25/2016 JAZMINE GUERRA OLGA R Ot M25.551 PAIN IN RIGHT HIP 06/25/2016 JAZMINE GUERRA OLGA R Ot M47.894 OTHER SPONDYLOSIS, THORACIC REGION 06/25/2016 JAZMINE GUERRA OLGA R Ot 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, 06/25/2016 OLGA LUCERO MD R Ot M54.16 RADICULOPATHY, LUMBAR REGION 06/25/2016 OLGA LUCERO MD R Ot N83.20 UNSPECIFIED OVARIAN CYSTS 06/25/2016 JAZMINE GUERRA OLGA R Ot N88.8 OTHER SPECIFIED NONINFLAMMATORY DISORDER 07/15/2016 JAZMINE GUERRA OLGA R Ot M25.551 PAIN IN RIGHT HIP 07/15/2016 JAZMINE GUERRA OLGA R Ot M47.894 OTHER SPONDYLOSIS, THORACIC REGION 07/15/2016 JAZMINE GUERRA OLGA R Ot 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, 07/15/2016 JAZMINE GUERRA OLGA R Ot M54.16 RADICULOPATHY, LUMBAR REGION 07/15/2016 JAZMINE GUERRA OLGA R Ot N83.20 UNSPECIFIED OVARIAN CYSTS 07/15/2016 JAZMINE GUERRA OLGA R Ot N88.8 OTHER SPECIFIED NONINFLAMMATORY DISORDER 09/23/2016 Ot 250.00 DIAB [place] WO COMPL, TYPE II OR UNSPEC TY 09/23/2016 Ot 401.9 HYPERTENSION NOS 09/23/2016 Ot V58.69 OTH MED,LT,CURRENT USE 09/23/2016 Ot V58.83 ENCOUNTER FOR THERAPEUTIC DRUG MONITORIN 09/23/2016 Ot 250.00 DIAB [place] WO COMPL, TYPE II OR UNSPEC TY 09/23/2016 OLGA LUCERO MD R Ot 787.02 NAUSEA ALONE 09/23/2016 OLGA LUCERO MD R Ot 789.03 ABDOMINAL PAIN, RIGHT LOWER QUADRANT 09/23/2016 OLGA LUCERO MD Ot 789.04 ABDOMINAL PAIN, LEFT LOWER QUADRANT 09/23/2016 OLGA LUCERO MD R Ot 571.8 CHRONIC LIVER DIS NEC 09/23/2016 OLGA LUCERO MD R Ot 592.0 CALCULUS OF KIDNEY 09/23/2016 OLGA LUCERO MD R Ot 719.7 DIFFICULTY IN WALKING 09/23/2016 AFUA FINLEY Ot V58.69 OT MED,LT,CURRENT USE 09/23/2016 AFUA FINLEY [facility]UTE CARE NURSE Ot V58.83 ENCOUNTER FOR THERAPEUTIC DRUG MONITORIN 09/23/2016 ADAIR LUCERO ACUTE CARE NURSE Ot 250.00 DIAB [place] WO COMPL, TYPE II OR UNSPEC TY 09/23/2016 ADAIR LUCERO Ot 244.9 HYPOTHYROIDISM NOS 09/23/2016 ADAIR LUCERO ACUTE CARE NURSE Ot 250.00 DIAB [place] WO COMPL, TYPE II OR UNSPEC TY 09/23/2016 OLGA LUCERO MD R Ot 571.8 CHRONIC LIVER DIS NEC 09/23/2016 OLGA LUCERO MD R Ot 789.01 ABDOMINAL PAIN, RIGHT UPPER QUADRANT 09/23/2016 OLGA LUCERO MD Ot 789.01 ABDOMINAL PAIN, RIGHT UPPER QUADRANT 09/23/2016 OLGA LUCERO MD R Ot 793.3 NOSP (ABN) FINDINGS ON RADIOLOGICAL OT 09/23/2016 ESAU BERRY DO Ot 575.11 CHRONIC CHOLECYSTITIS 09/23/2016 ESAU BERRY DO Ot V72.63 PRE-PROCEDURAL LABORATORY EXAMINATION 09/23/2016 ESAU BERRY DO Ot V74.8 SCREEN-BACTERIAL DIS NEC 09/23/2016 ADAIR LUCERO ACUTE CARE NURSE Ot 250.01 DIAB [place] WO COMPL, TYPE I [JUVENILE TYP 09/23/2016 ADAIR LUCERO ACUTE CARE NURSE Ot 250.00 DIAB [place] WO COMPL, TYPE II OR UNSPEC TY 09/23/2016 ADAIR LUCERO ACUTE CARE NURSE Ot V58.67 LONG-TERM (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 INSULIN 09/23/2016 JAZMINE GUERRA, OLGA R Ot 786.2 COUGH 09/23/2016 ADAIR LUCEROP Ot E11.9 TYPE 2 DIABETES MELLITUS WITHOUT COMPLIC 09/23/2016 SUYAPA GUERRA, TREVIN Ot R19.4 CHANGE IN BOWEL HABIT 09/23/2016 SUYAPA GUERRA, TREVIN Ot Z01.818 ENCOUNTER FOR OTHER PREPROCEDURAL EXAMIN 09/23/2016 JAZMINE GUERRA, OLGA R Ot 787.91 DIARRHEA 09/23/2016 JAZMINE GUERRA, OLGA R Ot R19.7 DIARRHEA, UNSPECIFIED 09/23/2016 JAZMINE GUERRA, OLGA R Ot E03.9 HYPOTHYROIDISM, UNSPECIFIED 09/23/2016 JAZMINE GUERRA OLGA R Ot E03.9 HYPOTHYROIDISM, UNSPECIFIED 09/23/2016 JAZMINE GUERRA, OLGA R Ot M25.551 PAIN IN RIGHT HIP 09/23/2016 JAZMINE GUERRA OLGA R Ot M47.894 OTHER SPONDYLOSIS, THORACIC REGION 09/23/2016 JAZMINE GUERRA OLGA R Ot 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, 09/23/2016 JAZMINE GUERRA, OLGA R Ot M54.16 RADICULOPATHY, LUMBAR REGION 09/23/2016 JAZMINE GUERRA, OLGA R Ot N83.20 UNSPECIFIED OVARIAN CYSTS 09/23/2016 JAZMINE GUERRA, OLGA R Ot N88.8 OTHER SPECIFIED NONINFLAMMATORY DISORDER 09/23/2016 ADAIR LUCERO ACUTE CARE NURSE Ot E11.9 TYPE 2 DIABETES MELLITUS WITHOUT COMPLIC 09/23/2016 ADIAR LUCERO ACUTE CARE NURSE Ot Z79.4 PENITENTIARY (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 INSULIN 09/24/2016 ADAIR LUCERO ACUTE CARE NURSE Ot E11.9 TYPE 2 DIABETES MELLITUS WITHOUT COMPLIC 09/24/2016 ADAIR LUCERO ACUTE CARE NURSE Ot Z79.4 PENITENTIARY (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 INSULIN 09/29/2016 ADAIR LUCERO ACUTE CARE NURSE Ot E11.9 TYPE 2 DIABETES MELLITUS WITHOUT COMPLIC 09/29/2016 ADAIR LUCEROP Ot Z79.4 PENITENTIARY (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 INSULIN 10/21/2016 ADAIR LUCEROP Ot E11.9 TYPE 2 DIABETES MELLITUS WITHOUT COMPLIC 10/21/2016 ADAIR LUCERO Ot Z79.4 ANTHROPOLOGY AND ARCHEOLOGY INSTRUCTOR (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 INSULIN 10/26/2016 ADAIR LUCERO Ot E11.9 TYPE 2 DIABETES MELLITUS WITHOUT COMPLIC 10/26/2016 ADAIR LUCERO Ot Z79.4 PENITENTIARY (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 INSULIN 01/26/2017 FRANCISCO ALAN DO Ot E11.65 TYPE 2 DIABETES MELLITUS WITH HYPERGLYCE 01/26/2017 FRANCISCO ALAN DO Ot Z79.4 ANTHROPOLOGY AND ARCHEOLOGY INSTRUCTOR (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 INSULIN 01/26/2017 FRANCISCO ALAN DO Ot Z79.84 ANTHROPOLOGY AND ARCHEOLOGY INSTRUCTOR (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 ORAL HYPOGLYC 01/26/2017 FRANCISCO ALAN DO, Ot Z79.899 OTHER PENITENTIARY (CURRENT) DRUG THERAPY Procedures Code [place] [address] THERAPUTIC INJ SQ/IM 12/13/2012 63558 THERAPUTIC INJ SQ/IM 01/16/2013 41206 THERAPUTIC INJ SQ/IM 01/16/2013 75019 PSYCH PHARM MGMT 01/26/2013 12628 THERAPUTIC INJ SQ/IM 02/09/2013 62775 THERAPUTIC INJ SQ/IM 03/12/2013 26930 THERAPUTIC INJ SQ/IM 03/12/2013 76721 THERAPUTIC INJ SQ/IM 04/10/2013 J1631 Haldol Decanoate 100 mg/mL Solution 04/11/2013 84793 THERAPUTIC INJ SQ/IM 06/12/2013 82680 THERAPUTIC INJ SQ/IM 07/18/2013 13297 CMP 11/27/2013 78457 LIPID PANEL 11/27 58665 IMIPRAMINE 2013 27731 CBC 11/27/2013 94114 THERAPUTIC INJ SQ/IM 01/10/2014 45.16 ESOPHAGOGASTRODUODENOSCOPY [EGD] W/CLOSE 02/07/2014 46002 THERAPUTIC INJ SQ/IM 02/08/2014 52716 THERAPUTIC INJ SQ/IM 04/05/2014 13068 THERAPUTIC INJ SQ/IM 05/07/2014 59357 THERAPUTIC INJ SQ/IM 06/05/2014 33405 THERAPUTIC INJ SQ/IM 06/05/2014 73664 IMMUNOTHERAPY, ONE INJECTION 07/01/2014 79888 THERAPUTIC INJ SQ/IM 07/09/2014 38098 THERAPUTIC INJ SQ/IM 08/07/2014 95516 THERAPUTIC INJ SQ/IM 09/06/2014 52800 THERAPUTIC INJ SQ/IM 10/10/2014 08323 THERAPUTIC INJ SQ/IM 11/07/2014 61978 THERAPUTIC INJ SQ/IM 01/15/2015 Results Test Result Range Complete urinalysis with reflex to culture - 05/25/16 22:45 Urine color determination RED NRG Urine clarity determination BLOODY NRG Urine pH measurement by test strip 8 5- 9 Specific gravity of urine by test strip 1.015 1.016-1.022 Urine protein assay by test strip, semi-quantitative 2+ NEGATIVE Urine glucose detection by automated test strip 3+ NEGATIVE Erythrocytes detection in urine sediment by light microscopy 5+ NEGATIVE Urine ketones detection by automated test strip 1+ NEGATIVE Urine nitrite detection by test strip NEGATIVE NEGATIVE Urine total bilirubin detection by test strip NEGATIVE NEGATIVE Urine urobilinogen measurement by automated test strip (mass/volume) NORMAL NORMAL Urine leukocyte esterase detection by dipstick 2+ NEGATIVE Automated urine sediment erythrocyte count by microscopy (number/high power field) TNTC NRG Automated urine sediment leukocyte count by microscopy (number/high power field ) [HPF] NRG Bacteria detection in urine sediment by light microscopy FEW NRG Crystals detection in urine sediment by light microscopy NONE NRG Casts detection in urine sediment by light microscopy NONE NRG Mucus detection in urine sediment by light microscopy NEGATIVE NRG Complete urinalysis with reflex to culture YES NRG Bacterial urine culture - 05/25/16 22:45 Bacterial urine culture [id number] NRG COLONY COUNT <10,000 NRG FTX;REPORTABLE SENSITIVITIES REPORTED AT 0742, 816 NRG Bacterial susceptibility panel - 05/25/16 22:45 Gentamicin susceptibility test by minimum inhibitory concentration <= NRG Trimethoprim/sulfamethoxazole susceptibility test by minimum inhibitoryconcentration <= NRG Ampicillin susceptibility test by minimum inhibitory concentration <= NRG Tobramycin susceptibility test by minimum inhibitory concentration <= NRG Cefazolin susceptibility test by minimum inhibitory concentration <= NRG Ceftriaxone susceptibility test by minimum inhibitory concentration <= NRG Ampicillin/sulbactam susceptibility test by minimum inhibitory concentration <= NRG Piperacillin/tazobactam susceptibility test by minimum inhibitory concentration <= NRG Ciprofloxacin susceptibility test by minimum inhibitory concentration <= NRG Meropenem susceptibility test by minimum inhibitory concentration <= NRG Nitrofurantoin susceptibility test by minimum inhibitory concentration <= NRG Aztreonam susceptibility test by minimum inhibitory concentration <= NRG Extended spectrum beta lactamase (ESBL) producing bacteria susceptibility test by minimum inhibitory concentration - [facility] Bacterial susceptibility panel - 05/25/16 22:45 Gentamicin susceptibility test by minimum inhibitory concentration S NRG Vancomycin susceptibility test by minimum inhibitory concentration <= NRG Levofloxacin susceptibility test by minimum inhibitory concentration 2 NRG Tetracycline susceptibility test by minimum inhibitory concentration <= NRG Ampicillin susceptibility test by minimum inhibitory concentration <= NRG Nitrofurantoin susceptibility test by minimum inhibitory concentration 64 NRG Linezolid susceptibility test by minimum inhibitory concentration 2 [facility] Comprehensive metabolic panel - 09/23/16 14:56 Serum or plasma sodium measurement (moles/volume) 138 mmol/ L 135-145 Serum or plasma potassium measurement (moles/volume) 3.7 mmol/L 3.6-5.0 Serum or plasma chloride measurement (moles/volume) 109 mmol /L 98-107 Carbon dioxide 20 mmol/L 21-32 Serum or plasma anion gap determination (moles/volume) 9 mmol/L 5-14 Serum or plasma urea nitrogen measurement (mass/volume) 12 mg/dL 7-18 Serum or plasma creatinine measurement (mass/volume) 0.79 mg /dL 0.60-1.30 Serum or plasma urea nitrogen/creatinine mass ratio 15 NRG Serum or plasma creatinine measurement with calculation of estimated glomerular filtration rate > NRG Serum or plasma glucose measurement (mass/volume) 153 mg/dL 70-105 Serum or plasma calcium measurement (mass/volume) 9.2 mg/dL 8.5-10.1 Serum or plasma total bilirubin measurement (mass/volume) 0.5 mg/dL 0.1-1.0 Serum or plasma alkaline phosphatase measurement (enzymatic activity/volume) 130 U/L 40-136 Serum or plasma aspartate aminotransferase measurement (enzymatic activity/ volume) 19 U/L 5-34 Serum or plasma alanine aminotransferase measurement (enzymatic activity/volume ) 19 U/L 0-55 Serum or plasma protein measurement (mass/volume) 6.6 g/dL 6.4-8.2 Serum or plasma albumin measurement (mass/volume) 4.0 g/dL 3.2-4.5 THYROID STIMULATING HORMONE - 09/23/16 14:56 THYROID STIMULATING HORMONE 2.71 u[iU]/mL 0.35-4.94 Hemoglobin A1c - 09/23/16 14:56 Hemoglobin A1c 10.2 % 4.5-6.2 Capillary blood glucose measurement by glucometer (mass/volume) - 01/25/17 00: 59 Capillary blood glucose measurement by glucometer (mass/volume) 476 mg/dL 70-110 Complete urinalysis with reflex to culture - 01/25/17 01:00 Urine color determination YELLOW NRG Urine clarity determination CLEAR NRG Urine pH measurement by test strip 7 5- 9 Specific gravity of urine by test strip 1.010 1.016-1.022 Urine protein assay by test strip, semi-quantitative NEGATIVE NEGATIVE Urine glucose detection by automated test strip 4+ NEGATIVE Erythrocytes detection in urine sediment by light microscopy 1+ NEGATIVE Urine ketones detection by automated test strip NEGATIVE NEGATIVE Urine nitrite detection by test strip NEGATIVE NEGATIVE Urine total bilirubin detection by test strip NEGATIVE NEGATIVE Urine urobilinogen measurement by automated test strip (mass/volume) NORMAL NORMAL Urine leukocyte esterase detection by dipstick NEGATIVE NEGATIVE Automated urine sediment erythrocyte count by microscopy (number/high power field) RARE NRG Automated urine sediment leukocyte count by microscopy (number/high power field ) RARE NRG Bacteria detection in urine sediment by light microscopy TRACE NRG Squamous epithelial cells detection in urine sediment by light microscopy 5-10 NRG Crystals detection in urine sediment by light microscopy NONE NRG Casts detection in urine sediment by light microscopy NONE NRG Mucus detection in urine sediment by light microscopy NEGATIVE NRG Complete urinalysis with reflex to culture NO NRG Urine drug screening test - 01/25/17 01:00 Urine phencyclidine detection by screening method NEGATIVE NEGATIVE Urine benzodiazepines detection by screening method POSITIVE NEGATIVE Urine cocaine detection NEGATIVE NEGATIVE Urine amphetamines detection by screening method NEGATIVE NEGATIVE Urine methamphetamine detection by screening method NEGATIVE NEGATIVE Urine cannabinoids detection by screening method NEGATIVE NEGATIVE Urine opiates detection by screening method NEGATIVE NEGATIVE Urine barbiturates detection NEGATIVE NEGATIVE Screening urine tricyclic antidepressants detection POSITIVE NEGATIVE Urine methadone detection by screening method NEGATIVE NEGATIVE Urine oxycodone detection NEGATIVE NEGATIVE Urine propoxyphene detection NEGATIVE NEGATIVE Complete blood count (CBC) with automated white blood cell (WBC) differential - 01/25/17 01:10 Blood leukocytes automated count (number/volume) 9.8 10*3/ uL 4.3-11.0 Blood erythrocytes automated count (number/volume) 4.74 10*6 /uL 4.35-5.85 Venous blood hemoglobin measurement (mass/volume) 13.7 g/dL 11.5-16.0 Blood hematocrit (volume fraction) 39 % 35-52 Automated erythrocyte mean corpuscular volume 81 [foz_us] 80-99 Automated erythrocyte mean corpuscular hemoglobin (mass per erythrocyte) 29 pg 25-34 Automated erythrocyte mean corpuscular hemoglobin concentration measurement ( mass/volume) 36 g/dL 32-36 Automated erythrocyte distribution width ratio 13.4 % 10.0-14.5 Automated blood platelet count (count/volume) 203 10*3/uL 130-400 Automated blood platelet mean volume measurement 11.2 [foz_ us] 7.4-10.4 Automated blood neutrophils/100 leukocytes 50 % 42-75 Automated blood lymphocytes/100 leukocytes 37 % 12-44 Blood monocytes/100 leukocytes 9 % 0-12 Automated blood eosinophils/100 leukocytes 4 % 0-10 Automated blood basophils/100 leukocytes 1 % 0-10 Blood neutrophils automated count (number/volume) 4.9 10*3 1.8-7.8 Blood lymphocytes automated count (number/volume) 3.6 10*3 1.0-4.0 Blood monocytes automated count (number/volume) 0.9 10*3 0.0-1.0 Automated eosinophil count 0.3 10*3/uL 0.0-0.3 Automated blood basophil count (count/volume) 0.1 10*3/uL 0.0-0.1 Serum or plasma choriogonadotropin ( test) detection - 01/25/17 01:10 Serum or plasma choriogonadotropin ( test) detection NEGATIVE NEGATIVE Comprehensive metabolic panel - 01/25/17 01:10 Serum or plasma sodium measurement (moles/volume) 135 mmol/ L 135-145 Serum or plasma potassium measurement (moles/volume) 3.2 mmol/L 3.6-5.0 Serum or plasma chloride measurement (moles/volume) 102 mmol /L 98-107 Carbon dioxide 20 mmol/L 21-32 Serum or plasma anion gap determination (moles/volume) 13 mmol/L 5-14 Serum or plasma urea nitrogen measurement (mass/volume) 10 mg/dL 7-18 Serum or plasma creatinine measurement (mass/volume) 0.95 mg /dL 0.60-1.30 Serum or plasma urea nitrogen/creatinine mass ratio 11 NRG Serum or plasma creatinine measurement with calculation of estimated glomerular filtration rate > NRG Serum or plasma glucose measurement (mass/volume) 530 mg/dL 70-105 Serum or plasma calcium measurement (mass/volume) 9.1 mg/dL 8.5-10.1 Serum or plasma total bilirubin measurement (mass/volume) 0.2 mg/dL 0.1-1.0 Serum or plasma alkaline phosphatase measurement (enzymatic activity/volume) 109 U/L 40-136 Serum or plasma aspartate aminotransferase measurement (enzymatic activity/ volume) 11 U/L 5-34 Serum or plasma alanine aminotransferase measurement (enzymatic activity/volume ) 22 U/L 0-55 Serum or plasma protein measurement (mass/volume) 6.6 g/dL 6.4-8.2 Serum or plasma albumin measurement (mass/volume) 4.0 g/dL 3.2-4.5 Magnesium - 01/25/17 01:10 Magnesium 1.6 mg/dL 1.8-2.4 Serum or plasma troponin i.cardiac measurement (mass/volume) - 01/25/17 01:10 Serum or plasma troponin i.cardiac measurement (mass/volume) < ng/mL <0.30 THYROID STIMULATING HORMONE - 01/25/17 01:10 THYROID STIMULATING HORMONE 3.82 u[iU]/mL 0.35-4.94 Hemoglobin A1c - 01/25/17 01:10 Hemoglobin A1c 12.4 % 4.5-6.2 Capillary blood glucose measurement by glucometer (mass/volume) - 01/25/17 02: 24 Capillary blood glucose measurement by glucometer (mass/volume) 341 mg/dL 70-110 Encounters ACCT No. Visit Date/Time Discharge Status Pt. Type Provider Facility Loc./Unit Complaint [id number] 02/19/2015 10:39:00 02/19/2015 23: 59:59 [facility] BRYAN SHARP APRN [id number] 01/15/2015 15:46:00 01/15/2015 23: 59:59 [facility] BRYAN SHARP APRN [id number] 12/31/2014 09:36:00 12/31/2014 23: 59:59 [facility] Outpatient BRYAN SHARP APRN [id number] 11/21/2014 14:43:00 11/21/2014 23: 59:59 [facility] Outpatient LILA SHOE PATTERNMAKER, BRYAN [id number] 11/07/2014 15:40:00 11/07/2014 23: 59:59 [facility] Outpatient LILA SHOE PATTERNMAKER, BRYAN [id number] 10/09/2014 15:00:00 10/09/2014 23: 59:59 [facility] Outpatient ALVARO VYAS DO Alejandro [id number] 09/06/2014 15:25:00 09/06/2014 23: 59:59 [facility] Outpatient ASAEL DOALVARO Alejandro [id number] 08/16/2014 15:48:00 08/16/2014 23: 59:59 [facility] Outpatient LILA SHOE PATTERNMAKER, BRYAN [id number] 08/07/2014 14:18:00 08/07/2014 23: 59:59 CLS Outpatient LILA SHOE PATTERNMAKER, BRYAN [id number] 07/19/2014 09:53:00 07/19/2014 23: 59:59 [facility] Outpatient LILA SHOE PATTERNMAKER, BRYAN [id number] 07/09/2014 15:39:00 07/09/2014 23: 59:59 [facility] Outpatient LILA SHOE PATTERNMAKER, BRYAN [id number] 06/18/2014 16:04:00 06/18/2014 23: 59:59 CLS Outpatient LILA SHOE PATTERNMAKER, BRYAN [id number] 06/05/2014 15:45:00 06/05/2014 23: 59:59 C[facility] Outpatient VYAS DOALVARO [id number] 05/16/2014 16:35:00 05/16/2014 23: 59:59 C[facility] Outpatient LILA SHOE PATTERNMAKER, BRYAN [id number] 05/07/2014 11:39:00 05/07/2014 23: 59:59 CLS Outpatient LILA SHOE PATTERNMAKER, BRYAN [id number] 04/18/2014 14:58:00 04/18/2014 23: 59:59 CLS Outpatient LILA SHOE PATTERNMAKER, BRYAN [id number] 04/05/2014 10:34:00 04/05/2014 23: 59:59 CLS Outpatient VYAS DOALVARO Alejandro [id number] 2014 14:23:00 2014 23: 59:59 CLS Outpatient LILA SHOE PATTERNMAKER, BRYAN [id number] 2014 14:23:00 2014 23: 59:59 CLS Outpatient LILA SHOE PATTERNMAKER, BRYAN [id number] 03/11/2014 12:20:00 03/11/2014 23: 59:59 CLS Outpatient FINLEY SHOE PATTERNMAKER, AFUA BOSWELL [id number] 02/08/2014 08:25:00 02/08/2014 23: 59:59 CLS Outpatient FINLEY SHOE PATTERNMAKER, AFUA BOSWELL [id number] 01/10/2014 10:55:00 01/10/2014 23: 59:59 CLS Outpatient FINLEY SHOE PATTERNMAKERAFUA [id number] 12/10/2013 17:22:00 12/10/2013 23: 59:59 CLS Outpatient FINLEY SHOE PATTERNMAKER, AFUA BOSWELL [id number] 09/25/2013 13:29:00 09/25/2013 23: 59:59 CLS Outpatient FINLEY SHOE PATTERNMAKERFAUA [id number] 09/03/2013 16:40:00 09/03/2013 23: 59:59 CLS Outpatient FINLEY SHOE PATTERNMAKERAFUA [id number] 08/20/2013 13:43:00 08/20/2013 23: 59:59 CLS Outpatient FINLEY SHOE PATTERNMAKERAFUA [id number] 07/18/2013 08:54:00 07/18/2013 23: 59:59 CLS Outpatient FINLEY SHOE PATTERNMAKERAFUA [id number] 07/12/2013 16:28:00 07/12/2013 23: 59:59 CLS Outpatient FINLEY SHOE PATTERNMAKERAFUA [id number] 01/19/2013 15:27:00 01/19/2013 23: 59:59 CLS Outpatient FINLEY SHOE PATTERNMAKERAFUA [id number] 01/16/2013 13:38:00 01/16/2013 23: 59:59 CLS Outpatient [id number] 12/29/2012 09:32:00 12/29/2012 23: 59:59 CLS Outpatient FINLEY SHOE PATTERNMAKERAFUA [id number] 12/13/2012 14:41:00 12/13/2012 23: 59:59 CLS Outpatient [id number] 11/20/2012 10:07:00 11/20/2012 23: 59:59 CLS Outpatient FINLEY SHOE PATTERNMAKERAFUA [id number] 09/11/2012 09:21:00 09/11/2012 23: 59:59 CLS Outpatient FINLEY SHOE PATTERNMAKERAFUA [id number] 06/22/2013 15:42:00 Document Registration [id number] 06/15/2013 06:58:00 Document Registration [id number] 04/10/2013 10:26:00 Document Registration [id number] 03/12/2013 11:15:00 Document Registration [id number] 02/26/2013 13:42:00 Document Registration [id number] 02/09/2013 16:13:00 Document Registration [id number] 02/05/2013 07:59:00 Document Registration
== END 2017-01-25 02:52 | disposition home or self-care (01) ==
LOC: EDUNIT# 00:49 → ER 00:51
DX: E11.65 Type 2 diabetes mellitus with hyperglycemia (principal); Z79.84 Long term (current) use of oral hypoglycemic drugs; Z79.4 Long term (current) use of insulin; Z79.899 Other long term (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
CPT/HCPCS: 36415; 80053; 80306; 81000; 82962; 83036; 83735; 84443; 84484; 84703; 85025; 96361; 96374

== ENCOUNTER 2017-05-02 23:37 | Emergency (ER) | payer MEDICARE, MEDICAID ==
[~2017-05-02] VITALS: Ht 167.6 cm; Wt 88.5 kg
[~2017-05-02 23:37] MED LIST changes: -NAPR500T3 PO; +NAPR500T4 PO
[2017-05-03] MEDS ORDERED: TETRACAINE 0.5% OPHTH SOLN 4 ML BTL (SINGLE DOSE ONLY) OP ONE (00:15)
[2017-05-03] MEDS ORDERED: PALI6TAB6 (02:09)
[2017-05-03] MEDS ORDERED: CYPR4TAB (02:09)
[2017-05-03] MEDS ORDERED: OLAN15TA17 (02:09)
[2017-05-03] MEDS ORDERED: QUET50TA55 (02:09)
[2017-05-03] MEDS ORDERED: CITA40TA11 (02:09)
[2017-05-03] MEDS ORDERED: LEVO50TA (02:09)
[2017-05-03] MEDS ORDERED: CITA20TA7 (02:09)
--- NOTE | 2017-05-03 02:13 | ED EENT ---
History of Present Illness General Chief Complaint: Eye Problems Stated Complaint: EYE PAIN,FEELS LIKE NEEDLES IN EYES Nursing Triage Note: PT TO ED 5 W/ C/O RT EYE PAIN ONSET YESTERDAY, WORSE TODAY. DENIES INJURY. NO OTHER C/O VOICED (SUZANNE DOMINGUEZ MEDICAL STUDENT) History of Present Illness Time seen by provider: 20:00 Initial Comments Ms. Kulkarni is a 37 year old female presenting with right eye pain and pressure. The pain began Tuesday and has progressively gotten worse; when she closes her eye, she describes a sensation of the eye being pulled on and like needles are being stuck into the eye. The pain is associated with a right-sided holocranial headache. There are no alleviating factors but aggravating factors include light, moving the eye, moving her head from left to right, and pressing on or touching the eye. She put Visine anti-allergy drops into the eye yesterday at 7:00 pm and the pain increased from 5/10 to 8/10; it is currently 8 /10. She has never experienced eye pain like this before but does report a history of migraines, for which she takes hydrocodone as needed (last migraine was 6 months ago). She reports conjunctivitis once several years ago and had surgery on both eyes for correction of strabismus. She denies a history of seasonal allergies, nausea, vomiting, vision changes, or eye discharge. (SUZANNE DOMINGUEZ MEDICAL STUDENT) Allergies and Home Medications Allergies Coded Allergies: amoxicillin (Unverified Allergy, Severe, sob, rash, 11/01/10) Penicillins (Verified Adverse Reaction, Severe, RASH, 12/14/05) cefuroxime (Verified Adverse Reaction, Severe, RASH, 12/14/05) clarithromycin (Unverified Adverse Reaction, Mild, nausea and dizziness, ) Home Medications Carisoprodol 250 Mg Tablet, 250 MG PO, (Reported) Citalopram Hydrobromide 20 Mg Tablet, #30 (Reported) Citalopram Hydrobromide 40 Mg Tablet, #30 (Reported) Cyclobenzaprine HCl 10 Mg Tablet, 10 MG PO Q8H, #15 Prescribed by: GAURANG STANTON on 05/25/16 7834 Cyproheptadine HCl 4 Mg Tablet, #90 (Reported) Hydrocodone/Acetaminophen 1 Each Tablet, #90 (Reported) Hydroxyzine HCl 50 Mg Tablet, #120 (Reported) Insulin Aspart 100 Unit/1 Ml Insuln.pen, 27 UNITS SQ TID, (Reported) Insulin Detemir 100 Unit/1 Ml Insuln.pen, 60 UNITS SC HS, (Reported) Levothyroxine Sodium 88 Mcg Tablet, 88 MCG PO DAILY, (Reported) Levothyroxine Sodium 50 Mcg Tablet, #30 (Reported) Lorazepam 1 Mg Tab, 2 MG PO HS PRN for ANXIETY, (Reported) TAKES 2 (1MG) TABLETS Lorazepam 1 Mg Tab, 1 MG PO BID PRN for ANXIETY, (Reported) Loxapine Succinate 25 Mg Capsule, #90 (Reported) Metformin Hcl 1,000 Mg Tablet, 1,000 MG PO BID, (Reported) Naproxen 500 Mg Tablet, 500 MG PO BID, #20 Prescribed by: GAURANG STANTON on 05/25/16 2326 Nitrofurantoin Monohyd/M-Cryst 100 Mg Capsule, 100 MG PO BID, #20 Prescribed by: GAURANG STANTON on 05/25/16 2326 Olanzapine 15 Mg Tab.rapdis, #30 (Reported) Paliperidone 6 Mg Tab.er.24, #60 (Reported) Quetiapine Fumarate 50 Mg Tablet, #60 (Reported) Topiramate 100 Mg Tablet, 100 MG PO BID, (Reported) Trazodone HCl 100 Mg Tablet, #30 (Reported) Review of Systems Constitutional: see HPI, dizziness Eyes: Inflammation, Pain, Photophobia, Glasses Ears: No Symptoms Reported Nose: no symptoms reported Mouth: no symptoms reported Throat: no symptoms reported Respiratory: no symptoms reported Musculoskeletal: no symptoms reported Skin: no symptoms reported (SUZANNE DOMINGUEZ MEDICAL STUDENT) Past Efgnnxk-Ehqjur-Lhxtmd Hx Patient Social History Alcohol Use: Denies Use Recreational Drug Use: No Smoking Status: Current Everyday Smoker Type Used: Cigarettes 2nd Hand Smoke Exposure: Yes Recent Foreign Travel: No Contact w/Someone Who Travel: No Recent Infectious Disease Expo: No Recent Hopitalizations: No (SUZANNE DOMINGUEZ MEDICAL STUDENT) Immunizations Up To Date Tetanus Booster (TDap): Less than 5yrs Date of Pneumonia Vaccine: Oct 24, 2010 Date of Influenza Vaccine: Aug 30, 2015 (SUZANNE DOMINGUEZ MEDICAL STUDENT) Seasonal Allergies Seasonal Allergies: Yes (SUZANNE DOMINGUEZ MEDICAL STUDENT) Surgeries HX Surgeries: Yes (EGD, HIP SURGERY CHILD) Surgeries: Appendectomy, Eye Surgery, Gallbladder, Orthopedic (SUZANNE DOMINGUEZ MEDICAL STUDENT) Respiratory Hx Respiratory Disorders: No (SUZANNE DOMINGUEZ MEDICAL STUDENT) Cardiovascular Hx Cardiac Disorders: No (SUZANNE DOMINGUEZ MEDICAL STUDENT) Neurological Hx Neurological Disorders: Yes Neurological Disorders: Headaches /Migraines (SUZANNE DOMINGUEZ MEDICAL STUDENT) Reproductive System Hx Reproductive Disorders: No Sexually Transmitted Disease: No HIV/AIDS: No Female Reproductive Disorders: Denies (SUZANNE DOMINGUEZ MEDICAL STUDENT) Genitourinary Hx Genitourinary Disorders: Yes Genitourinary Disorders: UTI-Chronic (SUZANNE DOMINGUEZ MEDICAL STUDENT) Gastrointestinal Hx Gastrointestinal Disorders: Yes Gastrointestinal Disorders: Gastroesophageal Reflux (SUZANNE DOMINGUEZ MEDICAL STUDENT) Musculoskeletal Hx Musculoskeletal Disorders: No (SUZANNE DOMINGUEZ MEDICAL STUDENT) Endocrine Hx Endocrine Disorders: Yes Endocrine Disorders: Diabetes, Insulin dep, Hypothyroidsim (SUZANNE DOMINGUEZ MEDICAL STUDENT) HEENT HX ENT Disorders: Yes (GLASSES, EYE SURGERY CHILD) Loss of Vision: Bilateral Hearing Impairment: Denies (SUZANNE DOMINGUEZ MEDICAL STUDENT) Cancer Hx Cancer: No (SUZANNE DOMINGUEZ MEDICAL STUDENT) Psychosocial Hx Psychiatric Problems: Yes Behavioral Health Disorders: ADD/ADHD, Anxiety, Suicide Attempts, Personality Disorder, Schizophrenia, Depression (SUZANNE DOMINGUEZ MEDICAL STUDENT) Integumentary HX Skin/Integumentary Disorder: No (SUZANNE DOMINGUEZ MEDICAL STUDENT) Blood Transfusions Hx Blood Disorders: No (SUZANNE DOMINGUEZ MEDICAL STUDENT) Family Medical History Family Medial History: Family history: Allergy 03 MOTHER 09 BROTHER Family history: Arthritis 03 MOTHER Family history: Asthma 09 BROTHER 09 SISTER Family history: Cardiovascular disease 03 FATHER ("TAKES MEDICATION FOR HIS HEART") Family history: Diabetes mellitus 03 FATHER Family history: Hypertension 03 MOTHER Hypercholesterolemia 03 MOTHER Psychosocial problem 09 SISTER (DEPRESSION) Psychotic disorder 09 SISTER (ANXIETY) No Family History of: Abdominal aortic aneurysm [place]'s disease Alcoholism Aphasia Cancer Cancer of colon Cataract Chest pain Congenital heart disease Congestive heart failure Cystic fibrosis Dementia Dysphagia Family history: Alzheimer's disease Family history: Breast disease Family history: Coronary thrombosis Family history: Gastrointestinal disease Family history: Glaucoma Family history: Osteoporosis Family history: Thyroid disorder Headache Hearing loss Heart disease Hereditary disease History of - anemia History of - disorder History of - respiratory disease History of drug abuse Human immunodeficiency virus (HIV) seropositivity Infertile Kidney disease Malignant neoplasm of lung Myocardial infarction Parkinson's disease Prostate cancer Seizure disorder Stroke Tuberculosis Visual impairment (SUZANNE DOMINGUEZ MEDICAL STUDENT) Family Medial History: Family history: Allergy 03 MOTHER 09 BROTHER Family history: Arthritis 03 MOTHER Family history: Asthma 09 BROTHER 09 SISTER Family history: Cardiovascular disease 03 FATHER ("TAKES MEDICATION FOR HIS HEART") Family history: Diabetes mellitus 03 FATHER Family history: Hypertension 03 MOTHER Hypercholesterolemia 03 MOTHER Psychosocial problem 09 SISTER (DEPRESSION) Psychotic disorder 09 SISTER (ANXIETY) No Family History of: Abdominal aortic aneurysm Harrison[place]'s disease Alcoholism Aphasia Cancer Cancer of colon Cataract Chest pain Congenital heart disease Congestive heart failure Cystic fibrosis Dementia Dysphagia Family history: Alzheimer's disease Family history: Breast disease Family history: Coronary thrombosis Family history: Gastrointestinal disease Family history: Glaucoma Family history: Osteoporosis Family history: Thyroid disorder Headache Hearing loss Heart disease Hereditary disease History of - anemia History of - disorder History of - respiratory disease History of drug abuse Human immunodeficiency virus (HIV) seropositivity Infertile Kidney disease Malignant neoplasm of lung Myocardial infarction Parkinson's disease Prostate cancer Seizure disorder Stroke Tuberculosis Visual impairment (JOHN LEE MD) Physical Exam Vital Signs Vital Sign - Last 12Hours 05/03/17 00:39 Temp 97.6 Pulse 85 Resp 18 B/P (MAP) 133/101 Pulse Ox 99 O2 Delivery Room Air (JOHN LEE MD) General Appearance: WD/WN, moderate distress Eyes: right eye abnormal pupil, right eye conjunctival inflammation, left eye normal inspection, bilateral eye PERRL Ears: bilateral ear TM normal, bilateral ear auricle normal, bilateral ear canal normal Nose: normal inspection Mouth/Throat: normal mouth inspection, pharynx normal Neck: non-tender, full range of motion, supple, normal inspection Cardiovascular: regular rate, rhythm, no murmur Respiratory: chest non-tender, lungs clear, normal breath sounds, no respiratory distress Neurologic/Psychiatric: alert, normal mood/affect, oriented x 3 Skin: normal color, warm/dry (SUZANNE DOMINGUEZ MEDICAL STUDENT) Progress/Results/Core Measures Results/Orders My Orders Orders - JOHN LEE MD Tetracaine 0.5% Ophth Joan Sdv (Tetracai (05/03/17 00:15) Fluorescein Strips (Vddbt-O-Iunhsh) (05/03/17 02:15) Balanced Salt Irrigation Soln (Bss Irrig (05/03/17 02:15) Tetracaine 0.5% Ophth Joan Sdv (Tetracai (05/03/17 02:54) Tobra/Dexameth Ophth Susp (Tobradex Opht (05/03/17 04:00) Rx-Tobramycin/Dexam. (Rx-Tobradex Op Shelia (05/03/17 03:32) Rx-Tobramycin/Dexam. (Rx-Tobradex Op Shelia (05/03/17 03:45) Tropicamide 1% Ophthalmic Soln (Mydriacy (05/03/17 04:00) Tropicamide 1% Ophth Soln (Mydriacyl 1% (05/03/17 03:51) (JOHN LEE MD) Medications Given in ED Current Medications Medications Dose Ordered Sig/Kiarra Route Start Time Stop Time Status Last Admin Dose Admin Balanced Salt Solution 15 ml ONCE ONCE IR 05/03/17 02:15 05/03/17 02:17 DC 05/03/17 02:59 15 ML Fluorescein Sodium 1 mg ONCE ONCE OU 05/03/17 02:15 05/03/17 02:17 DC 05/03/17 02:59 1 MG Tetracaine HCl 1 OR 2 DROPS INTO AFFEC... ONCE ONCE OP 05/03/17 00:15 05/03/17 00:16 DC 05/03/17 02:59 4 ML Tropicamide 1 TO 2 DROPS INTO AFFEC... ONCE ONCE OU 05/03/17 04:00 05/03/17 04:01 DC 05/03/17 03:59 3 ML (JOHN LEE MD) Vital Signs/I&O Vital Sign - Last 12Hours 05/03/17 05/03/17 00:39 04:00 Temp 97.6 Pulse 85 89 Resp 18 20 B/P (MAP) 133/101 Pulse Ox 99 99 O2 Delivery Room Air (JOHN LEE MD) Blood Pressure Mean: 112 Progress Note : Time: 03:49 Progress Note This patient was seen and examined with IRLADNA Sanders. I agree with his findings, assessment, and plan. By my exam patient had mild anisocoria with the right pupil being slightly more constricted. Patient experienced pain with pupillary reflex. A the left eye resulted in pain the right eye. Patient had diffuse conjunctival and scleral edema and inflammation on the right. Funduscopic exam was difficult and details on the retinal surface were not appreciated. Case was reviewed with Dr. Ang who agrees that patient likely has iritis. He suggested a cycloplegic for comfort followed by a combination antibiotic/ steroid drop. Patient was treated with 2 drops of tropicamide followed by 2 drops of Tobradex. She experienced significant relief with tropicamide. Patient is to see Dr. Ang early this morning. (JOHN LEE MD) Departure Impression Impression: Primary Impression: Iritis Disposition: 01 HOME, SELF-CARE Condition: Improved Departure-Patient Inst. Decision time for Depature: 03:40 (JOHN LEE MD) Referrals: FELA ANG OD, FLOYD R MD (PCP/Family) Primary Care Physician Patient Instructions: Uveitis Add. Discharge Instructions: Use the tobramycin/dexamethasone drops by placing 2 drops in the right eye every 2 hours until otherwise instructed. Please present to Dr. Ang's office between 8:00 and 8:15 this morning unless you are able to get in with your front desk associate promptly. All discharge instructions reviewed with patient and/or family. Voiced understanding. Copy Copies To 1: FELA ANG OD, TYLER J MEDICAL STUDENT May 03, 2017 02:13 JOHN LEE MD May 03, 2017 03:51
[2017-05-03] MEDS ORDERED: BSS 15 ML IR ONE (02:15)
[2017-05-03] MEDS ORDERED: FLUORESCEIN (FLUOR-I-STRIPS) 1 MG STRP OU ONE (02:15)
[2017-05-03] MEDS ORDERED: TETRACAINE 0.5% OPHTH SOLN 4 ML BTL (SINGLE DOSE ONLY) ONE (02:54)
[2017-05-03] MEDS ORDERED: RX-TOBRA/DEXAMETH (TOBRADEX) OP. SUSP 2.5 ML BTL ONE (03:32)
[2017-05-03] MEDS ORDERED: RX-TOBRA/DEXAMETH (TOBRADEX) OP. SUSP 2.5 ML BTL OU STA (03:45)
[2017-05-03] MEDS ORDERED: TROPICAMIDE 1% OPH SOLN (MYDRIACYL) 15 ML BTL ONE (03:51)
[2017-05-03 04:00] VITALS: BP 131/99
[2017-05-03] MEDS ORDERED: TROPICAMIDE 1% OPH SOLN (MYDRIACYL) 3 ML BTL OU ONE (04:00)
[2017-05-03] MEDS ORDERED: TOBRA/DEXAMETH (TOBRADEX) OPHTH SUSP 2.5 ML BTL OU SCH (04:00)
--- OUTSIDE RECORDS SUMMARY | 2017-05-03 18:40 | XMS REPORT | Continuity of Care Document ---
Author Author [facility] Organization [facility] Address Unknown Phone Unavailable Care Team Providers Care Forklift Technician Name Role Phone Shelby Patrick PCP [phone] Source Comments Some departments are not documenting in the electronic medical record. If you do not see the information that you expected, contact Release of Information in the Health Information Management department at [phone] for further assistance in locating additional records.[facility] Active Allergies and Adverse Reactions Allergen Noted [...]
--- OUTSIDE RECORDS SUMMARY | 2017-05-03 18:44 | XMS REPORT | Continuity of Care Document ---
Author Author Formerly [facility] Address Unknown Phone Unavailable Allergies Active Description Code Type Severity Reaction Onset Reported/Identified Relationship to Patient Clinical Status Yes cefuroxime [id number] Drug Allergy Severe RASH 12/14/2005 Yes Penicillins [id number] Drug Allergy Severe RASH 12/14/2005 Yes amoxicillin [id number] Drug Allergy Severe sob, rash 11/01/2010 Yes [...] Delayed Release(E.C.) Drug Allergy 12/03/2011 Yes clarithromycin [id number] Drug Allergy Mild nausea and dizz 02/07/2014 [...] APRN 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 07/17/2010 FINLEY CONTINUOUS VULCANIZING MACHINE OPERATOR, AFUA LIZAMAH 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 07/17/2010 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 07/17/2010 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 07/17/2010 FINLEY CONTINUOUS VULCANIZING MACHINE OPERATOR, AFUA LIZAMAH 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 07/17/2010 FINLEY CONTINUOUS VULCANIZING MACHINE OPERATOR, AFUA LIZAMAH 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 07/17/2010 295.70 [...] AFFECTIVE 07/17/2010 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 07/17/2010 FINLEY CONTINUOUS VULCANIZING MACHINE OPERATOR, AFUA LIZAMAH 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 07/17/2010 FINLEY CONTINUOUS VULCANIZING MACHINE OPERATOR, AFUA LIZAMAH 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 07/17/2010 FINLEY CONTINUOUS VULCANIZING MACHINE OPERATOR, AFUA LIZAMAH 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 07/17/2010 FINLEY CONTINUOUS VULCANIZING MACHINE OPERATOR, AFUA LIZAMAH 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 07/17/2010 FINLEY CONTINUOUS VULCANIZING MACHINE OPERATOR, AFUA LIZAMAH 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 07/17/2010 FINLEY CONTINUOUS VULCANIZING MACHINE OPERATOR, AFUA LIZAMAH 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 07/17/2010 FINLEY CONTINUOUS VULCANIZING MACHINE OPERATOR, AFUA LIZAMAH 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 07/17/2010 FINLEY CONTINUOUS VULCANIZING MACHINE OPERATOR, AFUA ANDREIA 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 07/17/2010 FINLEY CONTINUOUS VULCANIZING MACHINE OPERATOR, AFUA LIZAMAH 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 07/17/2010 FINLEY CONTINUOUS VULCANIZING MACHINE OPERATOR, AFUA LIZAMAH 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 07/17/2010 FINLEY CONTINUOUS VULCANIZING MACHINE OPERATOR, AFUA LIZAMAH 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 07/17/2010 FINLEY CONTINUOUS VULCANIZING MACHINE OPERATOR, AFUA LIZAMAH 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 07/17/2010 FINLEY CONTINUOUS VULCANIZING MACHINE OPERATOR, AFUA BOSWELL 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 07/17/2010 FINLEY CONTINUOUS VULCANIZING MACHINE OPERATOR, AFUA BOSWELL 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 07/17/2010 FINLEY CONTINUOUS VULCANIZING MACHINE OPERATOR, AFUA BOSWELL 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 07/17/2010 FINLEY CONTINUOUS VULCANIZING MACHINE OPERATOR, AFUA BOSWELL 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 07/17/2010 FINLEY CONTINUOUS VULCANIZING MACHINE OPERATOR, AFUA BOSWELL 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 07/17/2010 FINLEY CONTINUOUS VULCANIZING MACHINE OPERATOR, AFUA BOSWELL 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 07/17/2010 LILA CONTINUOUS VULCANIZING MACHINE OPERATOR, BRYAN 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 07/17/2010 LILA CONTINUOUS VULCANIZING MACHINE OPERATOR, BRYAN 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 07/17/2010 VYAS DO ALVARO K 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 07/17/2010 VYAS DO, ALVARO K 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 07/17/2010 LILA CONTINUOUS VULCANIZING MACHINE OPERATOR, BRYAN 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 07/17/2010 LILA CONTINUOUS VULCANIZING MACHINE OPERATOR, BRYAN 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 07/17/2010 LILA CONTINUOUS VULCANIZING MACHINE OPERATOR, BRYAN 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 07/17/2010 LILA CONTINUOUS VULCANIZING MACHINE OPERATOR, BRYAN 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 07/17/2010 LILA CONTINUOUS VULCANIZING MACHINE OPERATOR, BRYAN 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 07/17/2010 LILA CONTINUOUS VULCANIZING MACHINE OPERATOR, BRYAN 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 07/17/2010 LILA CONTINUOUS VULCANIZING MACHINE OPERATOR, BRYAN 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 07/17/2010 LILA CONTINUOUS VULCANIZING MACHINE OPERATOR, BRYAN 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 07/17/2010 VYAS DO, ALVARO K 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 07/17/2010 VYAS DO ALVARO K 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 07/17/2010 LILA CONTINUOUS VULCANIZING MACHINE OPERATOR, BRYAN 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 07/17/2010 LILA CONTINUOUS VULCANIZING MACHINE OPERATOR, BRYAN 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 07/17/2010 LILA CONTINUOUS VULCANIZING MACHINE OPERATOR, BRYAN 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 07/17/2010 LILA CONTINUOUS VULCANIZING MACHINE OPERATOR, BRYAN 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 07/17/2010 LILA CONTINUOUS VULCANIZING MACHINE OPERATOR, BRYAN 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 07/17/2010 LILA CONTINUOUS VULCANIZING MACHINE OPERATOR, BRYAN 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 07/17/2010 LILA CONTINUOUS VULCANIZING MACHINE OPERATOR, BRYAN 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 07/17/2010 LILA CONTINUOUS VULCANIZING MACHINE OPERATOR, BRYAN 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 07/17/2010 LILA CONTINUOUS VULCANIZING MACHINE OPERATOR, BRYAN 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 07/17/2010 LILA CONTINUOUS VULCANIZING MACHINE OPERATOR, BRYAN 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 07/17/2010 VYAS DO, ALVARO K 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 07/17/2010 VYAS DO, ALVARO K 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 07/17/2010 VYAS DO, ALVARO K 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 07/17/2010 VYAS DO, ALVARO K 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 07/17/2010 LILA CONTINUOUS VULCANIZING MACHINE OPERATOR, BRYAN 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 07/17/2010 LILA CONTINUOUS VULCANIZING MACHINE OPERATOR, BRYAN 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 07/17/2010 LILA CONTINUOUS VULCANIZING MACHINE OPERATOR, BRYAN 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 07/17/2010 LILA CONTINUOUS VULCANIZING MACHINE OPERATOR, BRYAN 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 07/17/2010 LILA CONTINUOUS VULCANIZING MACHINE OPERATOR, BRYAN 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 07/17/2010 LILA CONTINUOUS VULCANIZING MACHINE OPERATOR, BRYAN 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 07/17/2010 LILA CONTINUOUS VULCANIZING MACHINE OPERATOR, BRYAN 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 07/17/2010 LILA CONTINUOUS VULCANIZING MACHINE OPERATOR, BRYAN 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 07/17/2010 LILA CONTINUOUS VULCANIZING MACHINE OPERATOR, BRYAN 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 07/17/2010 LILA CONTINUOUS VULCANIZING MACHINE OPERATOR, BRYAN 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 11/01/2010 Ot 682.3 [...] AFUA LIZAMAH 401.1 HYPERTENSION, BENIGN ESSENTIAL 02/22/2011 TUSAHR CHAUDHRY AFUA BOSWELL 278.01 OBESITY, MORBID (BMI >40) 02/22/2011 TUSHAR CHAUDHRY AFUA BOSWELL 401.1 HYPERTENSION, BENIGN ESSENTIAL 02/22/2011 278.01 OBESITY, MORBID (BMI >40) 02/22/2011 401.1 HYPERTENSION, BENIGN ESSENTIAL 02/22/2011 TUSHAR CHAUDHRY AFUA BOSWELL 278.01 OBESITY, MORBID (BMI >40) 02/22/2011 TUSHAR CHAUDHRY AFUA LIZAMAH 401.1 HYPERTENSION, BENIGN ESSENTIAL 02/22/2011 278.01 OBESITY, MORBID (BMI >40) 02/22/2011 401.1 HYPERTENSION, BENIGN ESSENTIAL 02/22/2011 FINLEY RICHA AFUA LIZAMAH 278.01 OBESITY, MORBID (BMI >40) 02/22/2011 FINLEY CONTINUOUS VULCANIZING MACHINE OPERATOR, AFUA LIZAMAH 401.1 HYPERTENSION, BENIGN ESSENTIAL 02/22/2011 [...] 02/22/2011 401.1 HYPERTENSION, BENIGN ESSENTIAL 02/22/2011 FINLEY CONTINUOUS VULCANIZING MACHINE OPERATOR, AFUA BOSWELL 278.01 OBESITY, MORBID (BMI >40) 02/22/2011 FINLEY CONTINUOUS VULCANIZING MACHINE OPERATOR, AFUA BOSWELL 401.1 HYPERTENSION, BENIGN ESSENTIAL 02/22/2011 FINLEY CONTINUOUS VULCANIZING MACHINE OPERATOR, AFUA BOSWELL 278.01 OBESITY, MORBID (BMI >40) 02/22/2011 FINLEY CONTINUOUS VULCANIZING MACHINE OPERATOR, AFUA LIZAMAH 401.1 HYPERTENSION, BENIGN ESSENTIAL 02/22/2011 FINLEY CONTINUOUS VULCANIZING MACHINE OPERATOR, AFUA ANDREIA 278.01 OBESITY, MORBID (BMI >40) 02/22/2011 FINLEY CONTINUOUS VULCANIZING MACHINE OPERATOR, AFUA LIZAMAH 401.1 HYPERTENSION, BENIGN ESSENTIAL 02/22/2011 FINLEY CONTINUOUS VULCANIZING MACHINE OPERATOR, AFUA LIZAMAH 278.01 OBESITY, MORBID (BMI >40) 02/22/2011 FINLEY CONTINUOUS VULCANIZING MACHINE OPERATOR, AFUA BOSWELL 401.1 HYPERTENSION, BENIGN ESSENTIAL 02/22/2011 FINLEY CONTINUOUS VULCANIZING MACHINE OPERATOR, AFUA BOSWELL 278.01 OBESITY, MORBID (BMI >40) 02/22/2011 FINLEY CONTINUOUS VULCANIZING MACHINE OPERATOR, AFUA BOSWELL 401.1 HYPERTENSION, BENIGN ESSENTIAL 02/22/2011 FINLEY CONTINUOUS VULCANIZING MACHINE OPERATOR, AFUA LIZAMAH 278.01 OBESITY, MORBID (BMI >40) 02/22/2011 FINLEY CONTINUOUS VULCANIZING MACHINE OPERATOR, AFUA LIZAMAH 401.1 HYPERTENSION, BENIGN ESSENTIAL 02/22/2011 FINLEY CONTINUOUS VULCANIZING MACHINE OPERATOR, AFUA ANDREIA 278.01 OBESITY, MORBID (BMI >40) 02/22/2011 FINLEY CONTINUOUS VULCANIZING MACHINE OPERATOR, AFUA BOSWELL 401.1 HYPERTENSION, BENIGN ESSENTIAL 02/22/2011 FINLEY CONTINUOUS VULCANIZING MACHINE OPERATOR, AFUA LIZAMAH 278.01 OBESITY, MORBID (BMI >40) 02/22/2011 FINLEY CONTINUOUS VULCANIZING MACHINE OPERATOR, AFUA LIZAMAH 401.1 HYPERTENSION, BENIGN ESSENTIAL 02/22/2011 FINLEY CONTINUOUS VULCANIZING MACHINE OPERATOR, AFUA ANDREIA 278.01 OBESITY, MORBID (BMI >40) 02/22/2011 FINLEY CONTINUOUS VULCANIZING MACHINE OPERATOR, AFUA ANDREIA 401.1 HYPERTENSION, BENIGN ESSENTIAL 02/22/2011 LILA CONTINUOUS VULCANIZING MACHINE OPERATOR, BRYAN 278.01 OBESITY, MORBID (BMI >40) 02/22/2011 LILA CONTINUOUS VULCANIZING MACHINE OPERATOR, BRYAN 401.1 HYPERTENSION, BENIGN ESSENTIAL 02/22/2011 VYAS ALVARO CHAPMAN 278.01 OBESITY, MORBID (BMI >40) 02/22/2011 ASAEL CHAPMAN ALVARO K 401.1 HYPERTENSION, BENIGN ESSENTIAL 02/22/2011 LILA CONTINUOUS VULCANIZING MACHINE OPERATOR, BRYAN 278.01 OBESITY, MORBID (BMI >40) 02/22/2011 LILA CONTINUOUS VULCANIZING MACHINE OPERATOR, BRYAN 401.1 HYPERTENSION, BENIGN ESSENTIAL 02/22/2011 LILA CONTINUOUS VULCANIZING MACHINE OPERATOR, BRYAN 278.01 OBESITY, MORBID (BMI >40) 02/22/2011 LILA CONTINUOUS VULCANIZING MACHINE OPERATOR, BRYAN 401.1 HYPERTENSION, BENIGN ESSENTIAL 02/22/2011 LILA CONTINUOUS VULCANIZING MACHINE OPERATOR, BRYAN 278.01 OBESITY, MORBID (BMI >40) 02/22/2011 LILA CONTINUOUS VULCANIZING MACHINE OPERATOR, BRYAN 401.1 HYPERTENSION, BENIGN ESSENTIAL 02/22/2011 LILA CONTINUOUS VULCANIZING MACHINE OPERATOR, BRYAN 278.01 OBESITY, MORBID (BMI >40) 02/22/2011 LILA CONTINUOUS VULCANIZING MACHINE OPERATOR, BRYAN 401.1 HYPERTENSION, BENIGN ESSENTIAL 02/22/2011 GEE VYAS DOA K 278.01 OBESITY, MORBID (BMI >40) 02/22/2011 GEE VYAS DOA K 401.1 HYPERTENSION, BENIGN ESSENTIAL 02/22/2011 LILA CONTINUOUS VULCANIZING MACHINE OPERATOR, BRYAN 278.01 OBESITY, MORBID (BMI >40) 02/22/2011 LILA CONTINUOUS VULCANIZING MACHINE OPERATOR, BRYAN 401.1 HYPERTENSION, BENIGN ESSENTIAL 02/22/2011 LILA CONTINUOUS VULCANIZING MACHINE OPERATOR, BRYAN 278.01 OBESITY, MORBID (BMI >40) 02/22/2011 LILA CONTINUOUS VULCANIZING MACHINE OPERATOR, BRYAN 401.1 HYPERTENSION, BENIGN ESSENTIAL 02/22/2011 LILA CONTINUOUS VULCANIZING MACHINE OPERATOR, BRYAN 278.01 OBESITY, MORBID (BMI >40) 02/22/2011 LILA CONTINUOUS VULCANIZING MACHINE OPERATOR, BRYAN 401.1 HYPERTENSION, BENIGN ESSENTIAL 02/22/2011 LILA CONTINUOUS VULCANIZING MACHINE OPERATOR, BRYAN 278.01 OBESITY, MORBID (BMI >40) 02/22/2011 LILA CONTINUOUS VULCANIZING MACHINE OPERATOR, BRYAN 401.1 HYPERTENSION, BENIGN ESSENTIAL 02/22/2011 LILA CONTINUOUS VULCANIZING MACHINE OPERATOR, BRYAN 278.01 OBESITY, MORBID (BMI >40) 02/22/2011 LILA CONTINUOUS VULCANIZING MACHINE OPERATOR, BRYAN 401.1 HYPERTENSION, BENIGN ESSENTIAL 02/22/2011 ASAEL CHAPMAN ALVARO K 278.01 OBESITY, MORBID (BMI >40) 02/22/2011 ASAEL CHAPMAN ALVARO K 401.1 HYPERTENSION, BENIGN ESSENTIAL 02/22/2011 ASAEL CHAPMAN ALVARO K 278.01 OBESITY, MORBID (BMI >40) 02/22/2011 ASAEL ALVARO CHAPMAN Alejandro 401.1 HYPERTENSION, BENIGN ESSENTIAL 02/22/2011 LILA CONTINUOUS VULCANIZING MACHINE OPERATOR, BRYAN 278.01 OBESITY, MORBID (BMI >40) 02/22/2011 LILA CONTINUOUS VULCANIZING MACHINE OPERATOR, BRYAN 401.1 HYPERTENSION, BENIGN ESSENTIAL 02/22/2011 LILA CONTINUOUS VULCANIZING MACHINE OPERATOR, BRYAN 278.01 OBESITY, MORBID (BMI >40) 02/22/2011 LILA CONTINUOUS VULCANIZING MACHINE OPERATOR, BRYAN 401.1 HYPERTENSION, BENIGN ESSENTIAL 02/22/2011 LILA CONTINUOUS VULCANIZING MACHINE OPERATOR, BRYAN 278.01 OBESITY, MORBID (BMI >40) 02/22/2011 LILA CONTINUOUS VULCANIZING MACHINE OPERATOR, BRYAN 401.1 HYPERTENSION, BENIGN ESSENTIAL 02/22/2011 LILA CONTINUOUS VULCANIZING MACHINE OPERATOR, BRYAN 278.01 OBESITY, MORBID (BMI >40) 02/22/2011 LILA CONTINUOUS VULCANIZING MACHINE OPERATOR, BRYAN 401.1 HYPERTENSION, BENIGN ESSENTIAL 02/22/2011 LILA CONTINUOUS VULCANIZING MACHINE OPERATOR, BRYAN 278.01 OBESITY, MORBID (BMI >40) 02/22/2011 LILA CONTINUOUS VULCANIZING MACHINE OPERATOR, BRYAN 401.1 HYPERTENSION, BENIGN ESSENTIAL 02/26/2011 TUSHAR [...] GAYNAFUA 244.9 UNSPECIFIED ACQUIRED HYPOTHYROIDISM 02/26/2011 FINLEY CONTINUOUS VULCANIZING MACHINE OPERATORAFUA 250.00 DIABETES MELLITUS WITHOUT MENTION OF COMPLICATION TYPE II OR UNSPECIFIED TYPE NOT STATED UNCONTROLLED 02/26/2011 TUSHAR GAYNAFUA 719.47 PAIN IN JOINT INVOLVING ANKLE AND FOOT 02/26/2011 FINLEY RICHA AFUA BOSWELL V70.0 GENERAL MEDICAL EXAM, ROUTINE, AT HEALTH CARE FACILITY 02/26/2011 TUSHAR GAYNiharika AFUA BOSWELL 244.9 UNSPECIFIED ACQUIRED HYPOTHYROIDISM 02/26/2011 FINLEY CONTINUOUS VULCANIZING MACHINE OPERATORAFUA 250.00 DIABETES MELLITUS WITHOUT MENTION OF COMPLICATION [...] UNSPECIFIED TYPE NOT STATED UNCONTROLLED 02/26/2011 FINLEY CONTINUOUS VULCANIZING MACHINE OPERATOR, AFUA BOSWELL 719.47 PAIN IN JOINT INVOLVING ANKLE AND FOOT 02/26/2011 UTSHAR GAYNiharika AFUA BOSWELL V70.0 GENERAL MEDICAL EXAM, [...] EXAM, ROUTINE, AT HEALTH CARE FACILITY 02/26/2011 TEMO SHARP APRNETTE 244.9 UNSPECIFIED ACQUIRED HYPOTHYROIDISM 02/26/2011 [...] ROUTINE, AT HEALTH CARE FACILITY 02/26/2011 LILA CONTINUOUS VULCANIZING MACHINE OPERATOR, BRYAN 244.9 UNSPECIFIED ACQUIRED HYPOTHYROIDISM 02/26/2011 LILA RICHA BRYAN 250.00 DIABETES MELLITUS WITHOUT MENTION OF COMPLICATION TYPE II OR UNSPECIFIED TYPE NOT STATED UNCONTROLLED 02/26/2011 LILA CONTINUOUS VULCANIZING MACHINE OPERATOR, BRYAN 719.47 PAIN IN JOINT INVOLVING ANKLE AND FOOT 02/26/2011 LILA CONTINUOUS VULCANIZING MACHINE OPERATOR, BRYAN V70.0 GENERAL MEDICAL EXAM, ROUTINE, AT HEALTH CARE FACILITY 02/26/2011 LILA CONTINUOUS VULCANIZING MACHINE OPERATOR, BRYAN 244.9 UNSPECIFIED ACQUIRED HYPOTHYROIDISM 02/26/2011 LILA CONTINUOUS VULCANIZING MACHINE OPERATOR, BRYAN 250.00 DIABETES MELLITUS WITHOUT MENTION OF COMPLICATION TYPE II OR UNSPECIFIED TYPE NOT STATED UNCONTROLLED 02/26/2011 LILA CONTINUOUS VULCANIZING MACHINE OPERATOR BRYAN 719.47 PAIN IN JOINT INVOLVING ANKLE AND FOOT 02/26/2011 LILA CONTINUOUS VULCANIZING MACHINE OPERATOR, BRYAN V70.0 GENERAL MEDICAL EXAM, ROUTINE, AT HEALTH CARE FACILITY 02/26/2011 LILA CONTINUOUS VULCANIZING MACHINE OPERATOR, BRYAN 244.9 UNSPECIFIED ACQUIRED HYPOTHYROIDISM 02/26/2011 LILA CONTINUOUS VULCANIZING MACHINE OPERATOR, BRYAN 250.00 DIABETES MELLITUS WITHOUT MENTION OF COMPLICATION TYPE II OR UNSPECIFIED TYPE NOT STATED UNCONTROLLED 02/26/2011 LILADINA CHAUDHRY, BRYAN 719.47 PAIN IN JOINT INVOLVING ANKLE AND FOOT 02/26/2011 LILADINA CHAUDHRY, BRYAN V70.0 GENERAL MEDICAL EXAM, ROUTINE, AT HEALTH CARE FACILITY 02/26/2011 LILA CONTINUOUS VULCANIZING MACHINE OPERATOR, BRYAN 244.9 UNSPECIFIED ACQUIRED HYPOTHYROIDISM 02/26/2011 LILA CONTINUOUS VULCANIZING MACHINE OPERATOR, BRYAN 250.00 DIABETES MELLITUS WITHOUT MENTION OF COMPLICATION TYPE II OR UNSPECIFIED TYPE NOT STATED UNCONTROLLED 02/26/2011 LILADINA CHAUDHRY, BRYAN 719.47 PAIN IN JOINT INVOLVING ANKLE AND FOOT 02/26/2011 LILA CONTINUOUS VULCANIZING MACHINE OPERATOR, BRYAN V70.0 GENERAL MEDICAL EXAM, ROUTINE, AT [...] ROUTINE, AT HEALTH CARE FACILITY 02/26/2011 LILA CONTINUOUS VULCANIZING MACHINE OPERATOR, BRYAN 244.9 UNSPECIFIED ACQUIRED HYPOTHYROIDISM 02/26/2011 LILA CONTINUOUS VULCANIZING MACHINE OPERATOR, BRYAN 250.00 DIABETES MELLITUS WITHOUT MENTION OF COMPLICATION TYPE II OR UNSPECIFIED TYPE NOT STATED UNCONTROLLED 02/26/2011 LILA CONTINUOUS VULCANIZING MACHINE OPERATOR, BRYAN 719.47 PAIN IN JOINT INVOLVING ANKLE AND FOOT 02/26/2011 LILA CONTINUOUS VULCANIZING MACHINE OPERATOR, BRYAN V70.0 GENERAL MEDICAL EXAM, ROUTINE, AT HEALTH CARE FACILITY 02/26/2011 LILA CHAUDHRY BRYAN 244.9 UNSPECIFIED ACQUIRED HYPOTHYROIDISM 02/26/2011 LILA CONTINUOUS VULCANIZING MACHINE OPERATOR, BRYAN 250.00 DIABETES MELLITUS WITHOUT MENTION OF COMPLICATION TYPE II OR UNSPECIFIED TYPE NOT STATED UNCONTROLLED 02/26/2011 LILA CHAUDHRY BRYAN 719.47 PAIN IN JOINT INVOLVING ANKLE AND FOOT 02/26/2011 LILA CONTINUOUS VULCANIZING MACHINE OPERATOR, BRYAN V70.0 GENERAL MEDICAL EXAM, ROUTINE, AT [...] UNSPECIFIED TYPE NOT STATED UNCONTROLLED 02/26/2011 LILA CONTINUOUS VULCANIZING MACHINE OPERATOR, BRYAN 719.47 PAIN IN JOINT INVOLVING ANKLE AND FOOT 02/26/2011 LILA CONTINUOUS VULCANIZING MACHINE OPERATOR, BRYAN V70.0 GENERAL MEDICAL EXAM, ROUTINE, AT [...] ROUTINE, AT HEALTH CARE FACILITY 02/26/2011 LILA CONTINUOUS VULCANIZING MACHINE OPERATOR BRYAN 244.9 UNSPECIFIED ACQUIRED HYPOTHYROIDISM 02/26/2011 LILA CONTINUOUS VULCANIZING MACHINE OPERATOR, BRYAN 250.00 DIABETES MELLITUS WITHOUT MENTION OF COMPLICATION TYPE II OR UNSPECIFIED TYPE NOT STATED UNCONTROLLED 02/26/2011 LILA CONTINUOUS VULCANIZING MACHINE OPERATOR BRYAN 719.47 PAIN IN JOINT INVOLVING ANKLE AND FOOT 02/26/2011 LILA CONTINUOUS VULCANIZING MACHINE OPERATOR, BRYAN V70.0 GENERAL MEDICAL EXAM, ROUTINE, AT HEALTH CARE FACILITY 02/26/2011 LILADINA CHADUHRY BRYAN 244.9 UNSPECIFIED ACQUIRED HYPOTHYROIDISM 02/26/2011 LILA CONTINUOUS VULCANIZING MACHINE OPERATOR, BRYAN 250.00 DIABETES MELLITUS WITHOUT MENTION OF COMPLICATION TYPE II OR UNSPECIFIED TYPE NOT STATED UNCONTROLLED 02/26/2011 LILADINA CHAUDHRY BRYAN 719.47 PAIN IN JOINT INVOLVING ANKLE AND FOOT 02/26/2011 LILA CONTINUOUS VULCANIZING MACHINE OPERATOR, BRYAN V70.0 GENERAL MEDICAL EXAM, ROUTINE, AT HEALTH CARE FACILITY 02/26/2011 LILA CHAUDHRY BRYAN 244.9 UNSPECIFIED ACQUIRED HYPOTHYROIDISM 02/26/2011 LILADINA CHAUDHRY, BRYAN 250.00 DIABETES MELLITUS WITHOUT MENTION OF COMPLICATION TYPE II OR UNSPECIFIED TYPE NOT STATED UNCONTROLLED 02/26/2011 LILA CONTINUOUS VULCANIZING MACHINE OPERATOR, BRYAN 719.47 PAIN IN JOINT INVOLVING ANKLE AND FOOT 02/26/2011 LILA CONTINUOUS VULCANIZING MACHINE OPERATOR, BRYAN V70.0 GENERAL MEDICAL EXAM, ROUTINE, AT HEALTH CARE FACILITY 02/26/2011 LILA CONTINUOUS VULCANIZING MACHINE OPERATOR, BRYAN 244.9 UNSPECIFIED ACQUIRED HYPOTHYROIDISM 02/26/2011 LILA CONTINUOUS VULCANIZING MACHINE OPERATOR, BRYAN 250.00 DIABETES MELLITUS WITHOUT MENTION OF COMPLICATION TYPE II OR UNSPECIFIED TYPE NOT STATED UNCONTROLLED 02/26/2011 LILA CONTINUOUS VULCANIZING MACHINE OPERATOR BRYAN 719.47 PAIN IN JOINT INVOLVING ANKLE [...] BOSWELL V58.69 MEDICATION HIGH RISK 03/03/2011 LILA CONTINUOUS VULCANIZING MACHINE OPERATOR, BRYAN V58.69 MEDICATION HIGH RISK 03/03/2011 ASAEL CHAPMAN ALVARO K V58.69 MEDICATION HIGH RISK 03/03/2011 LILA CONTINUOUS VULCANIZING MACHINE OPERATOR, BRYAN V58.69 MEDICATION HIGH RISK 03/03/2011 LILA CONTINUOUS VULCANIZING MACHINE OPERATOR, BRYAN V58.69 MEDICATION HIGH RISK 03/03/2011 LILA CONTINUOUS VULCANIZING MACHINE OPERATOR, BRYAN V58.69 MEDICATION HIGH RISK 03/03/2011 LILA CONTINUOUS VULCANIZING MACHINE OPERATOR, BRYAN V58.69 MEDICATION HIGH RISK 03/03/2011 VYAS ALVARO K V58.69 MEDICATION HIGH RISK 03/03/2011 LILA CONTINUOUS VULCANIZING MACHINE OPERATOR, BRYAN V58.69 MEDICATION HIGH RISK 03/03/2011 LILA CONTINUOUS VULCANIZING MACHINE OPERATOR, BRYAN V58.69 MEDICATION HIGH RISK 03/03/2011 LILA CONTINUOUS VULCANIZING MACHINE OPERATOR, BRYAN V58.69 MEDICATION HIGH RISK 03/03/2011 LILA CONTINUOUS VULCANIZING MACHINE OPERATOR, BRYAN V58.69 MEDICATION HIGH RISK 03/03/2011 LILA CONTINUOUS VULCANIZING MACHINE OPERATOR, BRYAN V58.69 MEDICATION HIGH RISK 03/03/2011 ASAEL CHAPMAN ALVARO K V58.69 MEDICATION HIGH RISK 03/03/2011 ASAEL CHAPMAN ALVARO K V58.69 MEDICATION HIGH RISK 03/03/2011 LILA CONTINUOUS VULCANIZING MACHINE OPERATOR, BRYAN V58.69 MEDICATION HIGH RISK 03/03/2011 LILA CONTINUOUS VULCANIZING MACHINE OPERATOR, BRYAN V58.69 MEDICATION HIGH RISK 03/03/2011 LILA CONTINUOUS VULCANIZING MACHINE OPERATOR, BRYAN V58.69 MEDICATION HIGH RISK 03/03/2011 LILA CONTINUOUS VULCANIZING MACHINE OPERATOR, BRYAN V58.69 MEDICATION HIGH RISK 03/03/2011 LILA CONTINUOUS VULCANIZING MACHINE OPERATOR, BRYAN V58.69 MEDICATION HIGH RISK 03/20/2011 Ot [...] 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 01/19/2013 LILA CONTINUOUS VULCANIZING MACHINE OPERATOR, BRYAN 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 01/19/2013 ALVARO VYAS DO 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 01/19/2013 LILA CONTINUOUS VULCANIZING MACHINE OPERATOR, BRYAN 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 01/19/2013 LILA CONTINUOUS VULCANIZING MACHINE OPERATOR, BRYAN 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 01/19/2013 LILA CONTINUOUS VULCANIZING MACHINE OPERATOR, BRYAN 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 01/19/2013 LILA CONTINUOUS VULCANIZING MACHINE OPERATOR, BRYAN 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 01/19/2013 ALVARO VYAS DO K 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 01/19/2013 LILA CONTINUOUS VULCANIZING MACHINE OPERATOR, BRYAN 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 01/19/2013 LILA CONTINUOUS VULCANIZING MACHINE OPERATOR, BRYAN 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 01/19/2013 LILA CONTINUOUS VULCANIZING MACHINE OPERATOR, BRYAN 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 01/19/2013 LILA CONTINUOUS VULCANIZING MACHINE OPERATOR, BRYAN 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 01/19/2013 LILA CONTINUOUS VULCANIZING MACHINE OPERATOR, BRYAN 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 01/19/2013 ALVARO VYAS DO K 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 01/19/2013 ALVARO VYAS DO K 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 01/19/2013 LILA CONTINUOUS VULCANIZING MACHINE OPERATOR, BRYAN 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 01/19/2013 LILA CONTINUOUS VULCANIZING MACHINE OPERATOR, BRYAN 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 01/19/2013 LILA CONTINUOUS VULCANIZING MACHINE OPERATOR, BRYAN 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 01/19/2013 LILA CONTINUOUS VULCANIZING MACHINE OPERATOR, BRYAN 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 01/19/2013 LILA CONTINUOUS VULCANIZING MACHINE OPERATOR, BRYAN 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 02/08/2013 [...] Ot 965.8 POIS-ANALGES/ANTIPYR NEC 02/10/2013 Ot 968.0 POIS-INSEMINATOR MUSCLE DEPRESS 02/10/2013 Ot 969.3 POISON-ANTIPSYCHOTIC NEC [...] FINLEY APRN 309.81 AN PTSD 07/18/2013 LILA CONTINUOUS VULCANIZING MACHINE OPERATOR, BRYAN 309.81 AN PTSD 07/18/2013 ALVARO VYAS DO K 309.81 AN PTSD 07/18/2013 LILA CONTINUOUS VULCANIZING MACHINE OPERATOR, BRYAN 309.81 AN PTSD 07/18/2013 LILA CONTINUOUS VULCANIZING MACHINE OPERATOR, BRYAN 309.81 AN PTSD 07/18/2013 LILA CONTINUOUS VULCANIZING MACHINE OPERATOR, BRYAN 309.81 AN PTSD 07/18/2013 LILA CONTINUOUS VULCANIZING MACHINE OPERATOR, BRYAN 309.81 AN PTSD 07/18/2013 GEE VYAS DOA K 309.81 AN PTSD 07/18/2013 LILA CONTINUOUS VULCANIZING MACHINE OPERATOR, BRYAN 309.81 AN PTSD 07/18/2013 LILA CONTINUOUS VULCANIZING MACHINE OPERATOR, BRYAN 309.81 AN PTSD 07/18/2013 LILA CONTINUOUS VULCANIZING MACHINE OPERATOR, BRYAN 309.81 AN PTSD 07/18/2013 LILA CONTINUOUS VULCANIZING MACHINE OPERATOR, BRYAN 309.81 AN PTSD 07/18/2013 LILA CONTINUOUS VULCANIZING MACHINE OPERATOR, BRYAN 309.81 AN PTSD 07/18/2013 GEE VYAS DOA K 309.81 AN PTSD 07/18/2013 GEE VYAS DOA K 309.81 AN PTSD 07/18/2013 LILA CONTINUOUS VULCANIZING MACHINE OPERATOR, BRYAN 309.81 AN PTSD 07/18/2013 LILA CONTINUOUS VULCANIZING MACHINE OPERATOR, BRYAN 309.81 AN PTSD 07/18/2013 LILA CONTINUOUS VULCANIZING MACHINE OPERATOR, BRYAN 309.81 AN PTSD 07/18/2013 LILA CONTINUOUS VULCANIZING MACHINE OPERATOR, BRYAN 309.81 AN PTSD 07/18/2013 LILA CONTINUOUS VULCANIZING MACHINE OPERATOR, BRYAN 309.81 AN PTSD 09/03/2013 AFUA FINLEY [...] P SCHIZO CATATONIC IN REMISSION 09/03/2013 LILA CONTINUOUS VULCANIZING MACHINE OPERATOR, BRYAN 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 09/03/2013 ALVARO VYAS DO K 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 09/03/2013 LILA CONTINUOUS VULCANIZING MACHINE OPERATOR, BRYAN 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 09/03/2013 LILA CONTINUOUS VULCANIZING MACHINE OPERATOR, BRYAN 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 09/03/2013 LILA CONTINUOUS VULCANIZING MACHINE OPERATOR, BRYAN 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 09/03/2013 LILA CONTINUOUS VULCANIZING MACHINE OPERATOR, BRYAN 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 09/03/2013 VYAS , ALVARO K 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 09/03/2013 LILA CONTINUOUS VULCANIZING MACHINE OPERATOR, BRYAN 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 09/03/2013 LILA CONTINUOUS VULCANIZING MACHINE OPERATOR, BRYAN 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 09/03/2013 LILA CONTINUOUS VULCANIZING MACHINE OPERATOR, BRYAN 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 09/03/2013 LILA CONTINUOUS VULCANIZING MACHINE OPERATOR, BRYAN 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 09/03/2013 LILA CONTINUOUS VULCANIZING MACHINE OPERATOR, BRYAN 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 09/03/2013 VYAS ALVARO K 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 09/03/2013 VYAS , ALVARO K 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 09/03/2013 LILA CONTINUOUS VULCANIZING MACHINE OPERATOR, BRYAN 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 09/03/2013 LILA CONTINUOUS VULCANIZING MACHINE OPERATOR, BRYAN 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 09/03/2013LILA CONTINUOUS VULCANIZING MACHINE OPERATOR, BRYAN 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 09/03/2013LILA CONTINUOUS VULCANIZING MACHINE OPERATOR, BRYAN 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 09/03/2013 LILA CONTINUOUS VULCANIZING MACHINE OPERATOR, BRYAN 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 [...] 300.3 AN OBCESS COMP DIS 09/25/2013 TUSHAR CONTINUOUS VULCANIZING MACHINE OPERATOR, AFUA BOSWELL 300.3 AN OBCESS COMP DIS 09/25/2013 FINLEY CONTINUOUS VULCANIZING MACHINE OPERATOR, AFUA BOSWELL 300.3 AN OBCESS COMP DIS 09/25/2013 LILA CONTINUOUS VULCANIZING MACHINE OPERATOR, BRYAN 300.3 AN OBCESS COMP DIS 09/25/2013 VYAS DO, ALVARO K 300.3 AN OBCESS COMP DIS 09/25/2013 LILA CONTINUOUS VULCANIZING MACHINE OPERATOR, BRYAN 300.3 AN OBCESS COMP DIS 09/25/2013 LILA CONTINUOUS VULCANIZING MACHINE OPERATOR, BRYAN 300.3 AN OBCESS COMP DIS 09/25/2013 LILA CONTINUOUS VULCANIZING MACHINE OPERATOR, BRYAN 300.3 AN OBCESS COMP DIS 09/25/2013 LILA CONTINUOUS VULCANIZING MACHINE OPERATOR, BRYAN 300.3 AN OBCESS COMP DIS 09/25/2013 VYAS DO, ALVARO K 300.3 AN OBCESS COMP DIS 09/25/2013 LILA CONTINUOUS VULCANIZING MACHINE OPERATOR, BRYAN 300.3 AN OBCESS COMP DIS 09/25/2013 LILA CONTINUOUS VULCANIZING MACHINE OPERATOR, BRYAN 300.3 AN OBCESS COMP DIS 09/25/2013 LILA CONTINUOUS VULCANIZING MACHINE OPERATOR, BRYAN 300.3 AN OBCESS COMP DIS 09/25/2013 LILA CONTINUOUS VULCANIZING MACHINE OPERATOR, BRYAN 300.3 AN OBCESS COMP DIS 09/25/2013 LILA CONTINUOUS VULCANIZING MACHINE OPERATOR, BRYAN 300.3 AN OBCESS COMP DIS 09/25/2013 VYAS DO, ALVARO K 300.3 AN OBCESS COMP DIS 09/25/2013 VYAS DO, ALVARO K 300.3 AN OBCESS COMP DIS 09/25/2013 LILA CONTINUOUS VULCANIZING MACHINE OPERATOR, BRYAN 300.3 AN OBCESS COMP DIS 09/25/2013 LILA CONTINUOUS VULCANIZING MACHINE OPERATOR, BRYAN 300.3 AN OBCESS COMP DIS 09/25/2013 LILA CONTINUOUS VULCANIZING MACHINE OPERATOR, BRYAN 300.3 AN OBCESS COMP DIS 09/25/2013 LILA CONTINUOUS VULCANIZING MACHINE OPERATOR, BRYAN 300.3 AN OBCESS COMP DIS 09/25/2013 [...] DO 296.80 MO BIPOLAR NOS 03/08/2014 LILA CONTINUOUS VULCANIZING MACHINE OPERATOR, BRYAN 296.80 MO BIPOLAR NOS 03/08/2014 LILA CONTINUOUS VULCANIZING MACHINE OPERATOR, BRYAN 296.80 MO BIPOLAR NOS 03/08/2014 LILA RICHA, BRYAN 296.80 MO BIPOLAR NOS 03/08/2014 LILA CONTINUOUS VULCANIZING MACHINE OPERATOR, BRYAN 296.80 MO BIPOLAR NOS 03/08/2014 VYAS DO ALVARO K 296.80 MO BIPOLAR NOS 03/08/2014 LILA CONTINUOUS VULCANIZING MACHINE OPERATOR, BRYAN 296.80 MO BIPOLAR NOS 03/08/2014 LILA CONTINUOUS VULCANIZING MACHINE OPERATOR, BRYAN 296.80 MO BIPOLAR NOS 03/08/2014 LILA CONTINUOUS VULCANIZING MACHINE OPERATOR, BRYAN 296.80 MO BIPOLAR NOS 03/08/2014 LILA CONTINUOUS VULCANIZING MACHINE OPERATOR, BRYAN 296.80 MO BIPOLAR NOS 03/08/2014 LILA CONTINUOUS VULCANIZING MACHINE OPERATOR, BRYAN 296.80 MO BIPOLAR NOS 03/08/2014 VYAS DO ALVARO K 296.80 MO BIPOLAR NOS 03/08/2014 VYAS DO ALVARO K 296.80 MO BIPOLAR NOS 03/08/2014 LILA CONTINUOUS VULCANIZING MACHINE OPERATOR, BRYAN 296.80 MO BIPOLAR NOS 03/08/2014 LILA CONTINUOUS VULCANIZING MACHINE OPERATOR, BRYAN 296.80 MO BIPOLAR NOS 03/08/2014 LILA CONTINUOUS VULCANIZING MACHINE OPERATOR, BRYAN 296.80 MO BIPOLAR NOS 03/08/2014 LILA CONTINUOUS VULCANIZING MACHINE OPERATOR, BRYAN 296.80 MO BIPOLAR NOS 03/08/2014 LILA CONTINUOUS VULCANIZING MACHINE OPERATOR, BRYAN 296.80 MO BIPOLAR NOS 03/11/2014 FINLEY CONTINUOUS VULCANIZING MACHINE OPERATOR, AFUA BOSWELL 296.80 MO BIPOLAR NOS 03/11/2014 FINLEY CONTINUOUS VULCANIZING MACHINE OPERATOR, AFUA BOSWELL 300.02 AN GEN ANXIETY 03/11/2014 FINLEY CONTINUOUS VULCANIZING MACHINE OPERATOR, AFUA BOSWELL 314.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 03/11/2014 LILA CONTINUOUS VULCANIZING MACHINE OPERATOR, BRYAN 296.80 MO BIPOLAR NOS 03/11/2014 LILA CONTINUOUS VULCANIZING MACHINE OPERATOR, BRYAN 300.02 AN GEN ANXIETY 03/11/2014 LILA CONTINUOUS VULCANIZING MACHINE OPERATOR, BRYAN 314.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 03/11/2014 ASAEL CHAPMANGEEA K 296.80 MO BIPOLAR NOS 03/11/2014 ASAEL CHAPMAN ALVARO K 300.02 AN GEN ANXIETY 03/11/2014 VYAS DO ALVARO K 314.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 03/11/2014 LILA CONTINUOUS VULCANIZING MACHINE OPERATOR, BRYAN 296.80 MO BIPOLAR NOS 03/11/2014 LILA CONTINUOUS VULCANIZING MACHINE OPERATOR, BRYAN 300.02 AN GEN ANXIETY 03/11/2014 LILA CONTINUOUS VULCANIZING MACHINE OPERATOR, BRYAN 314.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 03/11/2014 LILA CONTINUOUS VULCANIZING MACHINE OPERATOR, BRYAN 296.80 MO BIPOLAR NOS 03/11/2014 LILA CONTINUOUS VULCANIZING MACHINE OPERATOR, BRYAN 300.02 AN GEN ANXIETY 03/11/2014 LILA CONTINUOUS VULCANIZING MACHINE OPERATOR, BRYAN 314.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 03/11/2014 LILA CONTINUOUS VULCANIZING MACHINE OPERATOR, BRYAN 296.80 MO BIPOLAR NOS 03/11/2014 LILA CONTINUOUS VULCANIZING MACHINE OPERATOR, BRYAN 300.02 AN GEN ANXIETY 03/11/2014 LILA CONTINUOUS VULCANIZING MACHINE OPERATOR, BRYAN 314.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 03/11/2014 LILA CONTINUOUS VULCANIZING MACHINE OPERATOR, BRYAN 296.80 MO BIPOLAR NOS 03/11/2014 LILA CONTINUOUS VULCANIZING MACHINE OPERATOR, BRYAN 300.02 AN GEN ANXIETY 03/11/2014 LILA CONTINUOUS VULCANIZING MACHINE OPERATOR, BRYAN 314.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 03/11/2014 VYAS DO, ALVARO K 296.80 MO BIPOLAR NOS 03/11/2014 VYAS DO, ALVARO K 300.02 AN GEN ANXIETY 03/11/2014 VYAS DO, ALVARO K 314.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 03/11/2014 LILA CONTINUOUS VULCANIZING MACHINE OPERATOR, BRYAN 296.80 MO BIPOLAR NOS 03/11/2014 LILA CONTINUOUS VULCANIZING MACHINE OPERATOR, BRYAN 300.02 AN GEN ANXIETY 03/11/2014 LILA CONTINUOUS VULCANIZING MACHINE OPERATOR, BRYAN 314.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 03/11/2014 LILA CONTINUOUS VULCANIZING MACHINE OPERATOR, BRYAN 296.80 MO BIPOLAR NOS 03/11/2014 LILA CONTINUOUS VULCANIZING MACHINE OPERATOR, BRYAN 300.02 AN GEN ANXIETY 03/11/2014 LILA CONTINUOUS VULCANIZING MACHINE OPERATOR, BRYAN 314.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 03/11/2014 LILA CONTINUOUS VULCANIZING MACHINE OPERATOR, BRYAN 296.80 MO BIPOLAR NOS 03/11/2014 LILA CONTINUOUS VULCANIZING MACHINE OPERATOR, BRYAN 300.02 AN GEN ANXIETY 03/11/2014 LILA CONTINUOUS VULCANIZING MACHINE OPERATOR, BRYAN 314.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 03/11/2014 LILA CONTINUOUS VULCANIZING MACHINE OPERATOR, BRYAN 296.80 MO BIPOLAR NOS 03/11/2014 LILA CONTINUOUS VULCANIZING MACHINE OPERATOR, BRYAN 300.02 AN GEN ANXIETY 03/11/2014 LILA CONTINUOUS VULCANIZING MACHINE OPERATOR, BRYAN 314.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 03/11/2014 LILA CONTINUOUS VULCANIZING MACHINE OPERATOR, BRYAN 296.80 MO BIPOLAR NOS 03/11/2014 LILA CONTINUOUS VULCANIZING MACHINE OPERATOR, BRYAN 300.02 AN GEN ANXIETY 03/11/2014 LILA CONTINUOUS VULCANIZING MACHINE OPERATOR, BRYAN 314.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 03/11/2014 VYAS DO, ALVARO K 296.80 MO BIPOLAR NOS 03/11/2014 VYAS DO, ALVARO K 300.02 AN GEN ANXIETY 03/11/2014 VYAS DO ALVARO K 314.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 03/11/2014 VYAS DO ALVARO K 296.80 MO BIPOLAR NOS 03/11/2014 ALVARO VYAS DO K 300.02 AN GEN ANXIETY 03/11/2014 ALVARO VYAS DO K 314.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 03/11/2014 LILA CONTINUOUS VULCANIZING MACHINE OPERATOR, BRYAN 296.80 MO BIPOLAR NOS 03/11/2014 LILA CONTINUOUS VULCANIZING MACHINE OPERATOR, BRYAN 300.02 AN GEN ANXIETY 03/11/2014 LILA CONTINUOUS VULCANIZING MACHINE OPERATOR, BRYAN 314.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 03/11/2014 LILA CONTINUOUS VULCANIZING MACHINE OPERATOR, BRYAN 296.80 MO BIPOLAR NOS 03/11/2014 LILA CONTINUOUS VULCANIZING MACHINE OPERATOR, BRYAN 300.02 AN GEN ANXIETY 03/11/2014 LILA CONTINUOUS VULCANIZING MACHINE OPERATOR, BRYAN 314.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 03/11/2014 LILA CONTINUOUS VULCANIZING MACHINE OPERATOR, BRYAN 296.80 MO BIPOLAR NOS 03/11/2014 LILA CONTINUOUS VULCANIZING MACHINE OPERATOR, BRYAN 300.02 AN GEN ANXIETY 03/11/2014 LILA CONTINUOUS VULCANIZING MACHINE OPERATOR, BRYAN 314.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 03/11/2014 LILA CONTINUOUS VULCANIZING MACHINE OPERATOR, BRYAN 296.80 MO BIPOLAR NOS 03/11/2014 LILA CONTINUOUS VULCANIZING MACHINE OPERATOR, BRYAN 300.02 AN GEN ANXIETY 03/11/2014 LILA CONTINUOUS VULCANIZING MACHINE OPERATOR, BRYAN 314.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 03/11/2014 LILA CONTINUOUS VULCANIZING MACHINE OPERATOR, BRYAN 296.80 MO BIPOLAR NOS 03/11/2014 LILA CONTINUOUS VULCANIZING MACHINE OPERATOR, BRYAN 300.02 AN GEN ANXIETY 03/11/2014 LILA CONTINUOUS VULCANIZING MACHINE OPERATOR, BRYAN 314.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 05/02/2014 ESAU BERRY DO Ot 250.00 DIAB [place] WO COMPL, TYPE II OR UNSPEC TY 05/02/2014 ESAU BERRY DO Ot 575.11 CHRONIC CHOLECYSTITIS 06/05/2014 LILA CONTINUOUS VULCANIZING MACHINE OPERATOR, BRYAN 295.11 P SCHIZO DISORG SUBCHRONIC 06/05/2014 LILA CONTINUOUS VULCANIZING MACHINE OPERATOR, BRYAN 295.11 P SCHIZO DISORG SUBCHRONIC 06/05/2014 LILA CONTINUOUS VULCANIZING MACHINE OPERATOR, BRYAN 295.11 P SCHIZO DISORG SUBCHRONIC 06/05/2014 LILA CONTINUOUS VULCANIZING MACHINE OPERATOR, BRYNA 295.11 P SCHIZO DISORG SUBCHRONIC 06/05/2014 LILA CONTINUOUS VULCANIZING MACHINE OPERATOR, BRYAN 295.11 P SCHIZO DISORG SUBCHRONIC 06/05/2014 ALVARO VYAS DO 295.11 P SCHIZO DISORG SUBCHRONIC 06/05/2014 ALVARO VYAS DO 295.11 P SCHIZO DISORG SUBCHRONIC 06/05/2014 LILA CONTINUOUS VULCANIZING MACHINE OPERATOR, BRYAN 295.11 P SCHIZO DISORG SUBCHRONIC 06/05/2014 LILA CONTINUOUS VULCANIZING MACHINE OPERATOR, BRYAN 295.11 P SCHIZO DISORG SUBCHRONIC 06/05/2014 LILA CONTINUOUS VULCANIZING MACHINE OPERATOR, BRYAN 295.11 P SCHIZO DISORG SUBCHRONIC 06/05/2014 LILA CONTINUOUS VULCANIZING MACHINE OPERATOR, BRYAN 295.11 P SCHIZO DISORG SUBCHRONIC 06/05/2014 LILA CONTINUOUS VULCANIZING MACHINE OPERATOR, BRYAN 295.11 P SCHIZO DISORG SUBCHRONIC 06/19/2014 TANYA GONZALEZ CONTINUOUS VULCANIZING MACHINE OPERATOR Ot 784.0 HEADACHE 07/14/2014 DAX GUERRA, DARRICK Fiore Ot 346.90 MIGRAINE UNSPECIFIED W/O INTRACT MGRN W/ 09/18/2014 ADAIR LUCERO FOURDRINIER MACHINE OPERATOR Ot 250.00 09/18/2014 ADAIR LUCERO FOURDRINIER MACHINE OPERATOR Ot V58.67 10/07/2014 ADAIR LUCERO FOURDRINIER MACHINE OPERATOR Ot 250.00 10/07/2014 ADAIR LUCERO FOURDRINIER MACHINE OPERATOR Ot V58.67 12/06/2014 JAZMINE GUERRA, OLGA R [...] 12/06/2014 OLGA LUCERO MD R Ot V06.1 [id number], COMBINED [ 12/06/2014 OLGA LUCERO MD R [...] GUERRA, OLGA R Ot 719.7 01/29/2016 TUSHARAFUA FOURDRINIER MACHINE OPERATOR Ot V58.69 01/29/2016 TUSHARAFUA FOURDRINIER MACHINE OPERATOR Ot V58.83 01/29/2016 JAZMINE ADAIR Boland FOURDRINIER MACHINE OPERATOR Ot 250.00 01/29/2016 JAZMNIE ADAIR Boland FOURDRINIER MACHINE OPERATOR Ot 244.9 01/29/2016 JAZMINE ADAIR Boland FOURDRINIER MACHINE OPERATOR Ot 250.00 01/29/2016 JAZMINE GUERRA, OLGA R Ot 571.8 01/29/2016 JAZMINE GUERRA, OLGA R Ot 789.01 01/29/2016 JAZMINE GUERRA, OLGA R Ot 789.01 01/29/2016 JAZMINE GUERRA, OLGA R Ot 793.3 01/29/2016 [place] ESAU CHAPMAN Ot 575.11 01/29/2016 [facility] V72.63 01/29/2016 [facility] V74.8 01/29/2016 JAZMINE ADAIR Kya FOURDRINIER MACHINE OPERATOR Ot 250.01 01/29/2016 JAZMINE ADAIR Boland FOURDRINIER MACHINE OPERATOR Ot 250.00 01/29/2016 JAZMINE ADAIR Boland FOURDRINIER MACHINE OPERATOR Ot V58.67 01/29/2016 JAZMINE GUERRA, OLGA R Ot 786.2 01/29/2016 JAZMINE ADAIR Kya FOURDRINIER MACHINE OPERATOR Ot E11.9 01/29/2016 SUYAPA GUERRA, TREVIN Ot [...] SINGLE-FAMILY (PRIVATE) PARISH 05/26/2016 ROMY CHAPMAN GAURANG Allen Ot Y99.8 OTHER EXTERNAL CAUSE STATUS 06/04/2016 [...] 719.7 DIFFICULTY IN WALKING 06/04/2016 AFUA FINLEY FOURDRINIER MACHINE OPERATOR Ot V58.69 OT MED,LT,CURRENT USE 06/04/2016 AFUA FINLEY FOURDRINIER MACHINE OPERATOR Ot V58.83 ENCOUNTER FOR THERAPEUTIC DRUG MONITORIN [...] Ot N83.20 UNSPECIFIED OVARIAN CYSTS 06/10/2016 JAZMINE GUERRA OLGA R Ot N88.8 OTHER [...] V58.69 OT MED,LT,CURRENT USE 09/23/2016 AFUA FINLEY FOURDRINIER MACHINE OPERATOR Ot V58.83 ENCOUNTER FOR THERAPEUTIC DRUG MONITORIN 09/23/2016 ADAIR LUCERO FOURDRINIER MACHINE OPERATOR Ot 250.00 DIAB [place] WO COMPL, TYPE II OR UNSPEC TY 09/23/2016 ADAIR LUCREO Ot 244.9 HYPOTHYROIDISM NOS 09/23/2016 ADAIR LUCERO FOURDRINIER MACHINE OPERATOR Ot 250.00 DIAB [place] WO COMPL, TYPE [...] V74.8 SCREEN-BACTERIAL DIS NEC 09/23/2016 ADAIR LUCERO FOURDRINIER MACHINE OPERATOR Ot 250.01 DIAB [place] WO COMPL, TYPE I [JUVENILE TYP 09/23/2016 ADAIR LUCERO FOURDRINIER MACHINE OPERATOR Ot 250.00 DIAB [place] WO COMPL, TYPE II OR UNSPEC TY 09/23/2016 ADAIR LUCERO FOURDRINIER MACHINE OPERATOR Ot V58.67 LONG-TERM (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 INSULIN [...] OTHER SPECIFIED NONINFLAMMATORY DISORDER 09/23/2016 ADAIR LUCERO FOURDRINIER MACHINE OPERATOR Ot E11.9 TYPE 2 DIABETES MELLITUS WITHOUT COMPLIC 09/23/2016 ADAIR LUCERO FOURDRINIER MACHINE OPERATOR Ot Z79.4 MCFP (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 INSULIN 09/24/2016 ADAIR LUCERO FOURDRINIER MACHINE OPERATOR Ot E11.9 TYPE 2 DIABETES MELLITUS WITHOUT COMPLIC 09/24/2016 ADAIR LUCERO FOURDRINIER MACHINE OPERATOR Ot Z79.4 MCFP (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 INSULIN 09/29/2016 ADAIR LUCERO FOURDRINIER MACHINE OPERATOR Ot E11.9 TYPE 2 DIABETES MELLITUS WITHOUT COMPLIC 09/29/2016 ADAIR LUCEROP Ot Z79.4 MCFP (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 INSULIN 10/21/2016 ADAIR LUCEROP Ot E11.9 TYPE 2 DIABETES MELLITUS WITHOUT COMPLIC 10/21/2016 JAZMINE ADAIR Kya PLATT Ot Z79.4 EXECUTIVE COMPENSATION ANALYST (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 INSULIN 10/26/2016 JAZMINE ADAIR Kya PLATT Ot E11.9 TYPE 2 DIABETES MELLITUS WITHOUT COMPLIC 10/26/2016 DIANELYSNICOLEMaddie ADAIRASHELY PLATT Ot Z79.4 MCFP (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 INSULIN 01/25/2017 FRANCISCO ALAN DO Ot E11.65 TYPE 2 DIABETES MELLITUS WITH HYPERGLYCE 01/25/2017 FRANCISCO ALAN DO Ot Z79.4 EXECUTIVE COMPENSATION ANALYST (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 INSULIN 01/25/2017 FRANCISCO ALAN DO Ot Z79.84 EXECUTIVE COMPENSATION ANALYST (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 ORAL HYPOGLYC 01/25/2017 FRANCISCO ALAN DO, Ot Z79.899 OTHER MCFP (CURRENT) DRUG THERAPY 01/26/2017 FRANCISCO ALAN DO, Ot E11.65 TYPE 2 DIABETES MELLITUS WITH HYPERGLYCE 01/26/2017 FRANCISCO ALAN DO Ot Z79.4 MCFP (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 INSULIN 01/26/2017 FRANCISCO ALAN DO Ot Z79.84 EXECUTIVE COMPENSATION ANALYST (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 ORAL HYPOGLYC 01/26/2017 FRANCISCO ALAN DO, Ot Z79.899 OTHER EXECUTIVE COMPENSATION ANALYST (CURRENT) DRUG THERAPY 03/24/2017 Ot 250.00 DIAB [place] WO COMPL, TYPE II OR UNSPEC TY 03/24/2017 Ot 784.0 HEADACHE 03/24/2017 Ot V58.67 LONG-TERM (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 INSULIN Procedures Code [place] [address] THERAPUTIC INJ SQ/IM 12/13/2012 07823 THERAPUTIC INJ SQ/IM 01/16/2013 00402 THERAPUTIC INJ SQ/IM 01/16/2013 16578 PSYCH PHARM MGMT 01/26/2013 45276 THERAPUTIC INJ SQ/IM 02/09/2013 65748 THERAPUTIC INJ SQ/IM 03/12/2013 61661 THERAPUTIC INJ SQ/IM 03/12/2013 13021 THERAPUTIC INJ SQ/IM 04/10/2013 J1631 Haldol Decanoate 100 mg/mL Solution 04/11/2013 75520 THERAPUTIC INJ SQ/IM 06/12/2013 37822 THERAPUTIC INJ SQ/IM 07/18/2013 39828 CMP 11/27/2013 79239 LIPID PANEL 11/27 60737 IMIPRAMINE 2013 48107 CBC 11/27/2013 63530 THERAPUTIC INJ SQ/IM 01/10/2014 45.16 ESOPHAGOGASTRODUODENOSCOPY [EGD] W/CLOSE 02/07/2014 11236 THERAPUTIC INJ SQ/IM 02/08/2014 18423 THERAPUTIC INJ SQ/IM 04/05/2014 57363 THERAPUTIC INJ SQ/IM 05/07/2014 67947 THERAPUTIC INJ SQ/IM 06/05/2014 05410 THERAPUTIC INJ SQ/IM 06/05/2014 63900 IMMUNOTHERAPY, ONE INJECTION 07/01/2014 93925 THERAPUTIC INJ SQ/IM 07/09/2014 24306 THERAPUTIC INJ SQ/IM 08/07/2014 55426 THERAPUTIC INJ SQ/IM 09/06/2014 27307 THERAPUTIC INJ SQ/IM 10/10/2014 84954 THERAPUTIC INJ SQ/IM 11/07/2014 69590 THERAPUTIC INJ SQ/IM 01/15/2015 Results Test Result [...] culture - 05/25/16 22:45 Bacterial urine culture [id number] NRG COLONY COUNT <10,000 NRG FTX;REPORTABLE SENSITIVITIES REPORTED AT 0742, 06-01-16 [facility] Bacterial susceptibility panel - 05/25/16 22:45 Gentamicin [...] susceptibility test by minimum inhibitory concentration - [facility] Bacterial susceptibility panel - 05/25/16 22:45 Gentamicin [...] susceptibility test by minimum inhibitory concentration 2 [facility] Comprehensive metabolic panel - 09/23/16 14:56 Serum [...] Status Pt. Type Provider Facility Loc./Unit Complaint [id number] 02/19/2015 10:39:00 02/19/2015 23: 59:59 CLS Outpatient LILA CONTINUOUS VULCANIZING MACHINE OPERATOR, BRYAN [id number] 01/15/2015 15:46:00 01/15/2015 23: 59:59 CLS Outpatient LILA CONTINUOUS VULCANIZING MACHINE OPERATOR, BRYAN [id number] 12/31/2014 09:36:00 12/31/2014 23: 59:59 CLS Outpatient LILA CONTINUOUS VULCANIZING MACHINE OPERATOR, BRYAN [id number] 11/21/2014 14:43:00 11/21/2014 23: 59:59 CLS Outpatient LILA CONTINUOUS VULCANIZING MACHINE OPERATOR, BRYAN [id number] 11/07/2014 15:40:00 11/07/2014 23: 59:59 CLS Outpatient LILA CONTINUOUS VULCANIZING MACHINE OPERATOR, BRYAN [id number] 10/09/2014 15:00:00 10/09/2014 23: 59:59 CLS Outpatient ALVARO VYAS DO [id number] 09/06/2014 15:25:00 09/06/2014 23: 59:59 JEREMY Outpatient ALVARO VYAS DO [id number] 08/16/2014 15:48:00 08/16/2014 23: 59:59 CLS Outpatient LILA CONTINUOUS VULCANIZING MACHINE OPERATOR, BRYAN [id number] 08/07/2014 14:18:00 08/07/2014 23: 59:59 CLS Outpatient LILA CONTINUOUS VULCANIZING MACHINE OPERATOR, BRYAN [id number] 07/19/2014 09:53:00 07/19/2014 23: 59:59 CLS Outpatient LILA CONTINUOUS VULCANIZING MACHINE OPERATORBRYAN Bundy [id number] 07/09/2014 15:39:00 07/09/2014 23: 59:59 CLS Outpatient LILA CONTINUOUS VULCANIZING MACHINE OPERATORBRYAN Bundy [id number] 06/18/2014 16:04:00 06/18/2014 23: 59:59 CLS Outpatient LILA CONTINUOUS VULCANIZING MACHINE OPERATORBRYAN Bundy [id number] 06/05/2014 15:45:00 06/05/2014 23: 59:59 CLS Outpatient ALVARO VYAS DO [id number] 05/16/2014 16:35:00 05/16/2014 23: 59:59 CLS Outpatient LILA CONTINUOUS VULCANIZING MACHINE OPERATORBRYAN Bundy [id number] 05/07/2014 11:39:00 05/07/2014 23: 59:59 CLS Outpatient LILA CONTINUOUS VULCANIZING MACHINE OPERATORBRYAN [id number] 04/18/2014 14:58:00 04/18/2014 23: 59:59 CLS Outpatient LILA CONTINUOUS VULCANIZING MACHINE OPERATORBRYAN [id number] 04/05/2014 10:34:00 04/05/2014 23: 59:59 CLS Outpatient ALVARO VYAS DO [id number] 2014 14:23:00 2014 23: 59:59 CLS Outpatient LILA CONTINUOUS VULCANIZING MACHINE OPERATORBRYAN [id number] 2014 14:23:00 2014 23: 59:59 CLS Outpatient LILA CONTINUOUS VULCANIZING MACHINE OPERATORBRYAN [id number] 03/11/2014 12:20:00 03/11/2014 23: 59:59 CLS Outpatient FINLEY CONTINUOUS VULCANIZING MACHINE OPERATORAFUA [id number] 02/08/2014 08:25:00 02/08/2014 23: 59:59 CLS Outpatient FINLEY CONTINUOUS VULCANIZING MACHINE OPERATORAFUA [id number] 01/10/2014 10:55:00 01/10/2014 23: 59:59 CLS Outpatient FINLEY CONTINUOUS VULCANIZING MACHINE OPERATORAFUA [id number] 12/10/2013 17:22:00 12/10/2013 23: 59:59 CLS Outpatient FINLEY CONTINUOUS VULCANIZING MACHINE OPERATORAFUA [id number] 09/25/2013 13:29:00 09/25/2013 23: 59:59 CLS Outpatient FINLEY CONTINUOUS VULCANIZING MACHINE OPERATORAFUA [id number] 09/03/2013 16:40:00 09/03/2013 23: 59:59 CLS Outpatient FINLEY CONTINUOUS VULCANIZING MACHINE OPERATORAFUA [id number] 08/20/2013 13:43:00 08/20/2013 23: 59:59 CLS Outpatient FINLEY CONTINUOUS VULCANIZING MACHINE OPERATORAFUA [id number] 07/18/2013 08:54:00 07/18/2013 23: 59:59 CLS Outpatient FINLEY CONTINUOUS VULCANIZING MACHINE OPERATORAFUA [id number] 07/12/2013 16:28:00 07/12/2013 23: 59:59 CLS Outpatient FINLEY CONTINUOUS VULCANIZING MACHINE OPERATORAFUA [id number] 01/19/2013 15:27:00 01/19/2013 23: 59:59 CLS Outpatient FINLEY CONTINUOUS VULCANIZING MACHINE OPERATORAFUA [id number] 01/16/2013 13:38:00 01/16/2013 23: 59:59 CLS Outpatient [id number] 12/29/2012 09:32:00 12/29/2012 23: 59:59 CLS Outpatient AFUA FINLEY APRN [id number] 12/13/2012 14:41:00 12/13/2012 23: 59:59 CLS Outpatient [id number] 11/20/2012 10:07:00 11/20/2012 23: 59:59 CLS Outpatient AFUA FINLEY APRN [id number] 09/11/2012 09:21:00 09/11/2012 23: 59:59 CLS Outpatient AFUA FINLEY APRN [id number] 06/22/2013 15:42:00 Document Registration [id number] 06/15/2013 06:58:00 Document Registration [id number] 04/10/2013 10:26:00 Document Registration [id number] 03/12/2013 11:15:00 Document Registration [id number] 02/26/2013 13:42:00 Document Registration [id number] 02/09/2013 16:13:00 Document Registration [id number] 02/05/2013 07:59:00 Document Registration
== END 2017-05-03 04:00 | disposition home or self-care (01) ==
LOC: EDUNIT# 23:37 → ER 23:40
DX: K21.9 Gastro-esophageal reflux disease without esophagitis; E11.9 Type 2 diabetes mellitus without complications; H20.9 Unspecified iridocyclitis; Z90.49 Acquired absence of other specified parts of digestive tract; E03.9 Hypothyroidism, unspecified; F41.9 Anxiety disorder, unspecified; Z79.4 Long term (current) use of insulin; Z91.5 Personal history of self-harm; F90.9 Attention-deficit hyperactivity disorder, unspecified type; F32.9 Major depressive disorder, single episode, unspecified; F20.9 Schizophrenia, unspecified; F17.210 Nicotine dependence, cigarettes, uncomplicated; Z79.84 Long term (current) use of oral hypoglycemic drugs; G43.909 Migraine, unspecified, not intractable, without status migrainosus; F60.9 Personality disorder, unspecified
CPT/HCPCS: 99283

== ENCOUNTER 2017-07-09 17:11 | Emergency (ER) | payer MEDICARE, MEDICAID ==
[~2017-07-09] VITALS: Ht 167.6 cm; Wt 88.5 kg
[~2017-07-09 17:11] MED LIST changes: +CITA20TA7; +CITA40TA11; +CYPR4TAB; +LEVO50TA; +OLAN15TA17; +PALI6TAB6; +QUET50TA55
--- OUTSIDE RECORDS SUMMARY | 2017-07-09 17:17 | XMS REPORT | Clinical Summary ---
Author Author [facility] Organization [facility] Address Unknown Phone Unavailable Care Team Providers Care It Systems Analyst Name Role Phone PCP Unavailable Source Comments Some departments are not documenting in the electronic medical record. If you do not see the information that you expected, contact Release of Information in the Health Information Management department at [phone] for further assistance in locating additional records.[facility] Allergies Active Allergy Reactions Severity Noted Date Comments Cephalexin VISION CHANGES Medium 09/08/2016 Penicillins RASH, PALPITATIONS Medium 09/08/2016 Amoxicillin PALPITATIONS Low 09/08/2016 Clarithromycin DIARRHEA, STOMACH UPSET Low 09/08/2016 Duloxetine NAUSEA ONLY Low 09/08/2016 Current Medications Prescription Sig. Disp. Refills Start [...] tablet Pain Active Problems Not on file Family History Medical History Relation Name Comments Cancer Father Diabetes Father Heart problem Paternal Grandfather Stroke Paternal Grandfather Cancer Paternal Grandmother Relation Name Status Comments Brother Alive Father Alive Mother Alive Paternal Grandfather Paternal Grandmother Sister Alive Social History Tobacco Use Types Packs/Day Years Used Date Never Assessed Sex Assigned at Date Recorded Not on file Last Filed Vital Signs Not on file Plan of Treatment Health Maintenance Due Date Last Done Comments PHYSICAL (COMPREHENSIVE) 1988 EXAM PERTUSSIS VACCINE 1992 TETANUS VACCINE 1998 CERVICAL CANCER SCREENING 2011 INFLUENZA VACCINE 07/24/2017 Results Not on filefrom Last 3 Months
--- OUTSIDE RECORDS SUMMARY | 2017-07-09 17:18 | XMS REPORT ---
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 88794170 Problem Catatonic schizophrenia, 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 807335384 Problem Borderline personality disorder F60.3 Active 65908774 Problem High risk medication use Z79.899 Active 633361404 Problem Schizoaffective disorder, unspecified F25.9 Active 23445907 Problem Paranoid schizophrenia F20.0 Active 14393700 Problem Posttraumatic stress disorder F43.10 Active 34158758 Problem Attention deficit hyperactivity disorder (ADHD), inattentive type, 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 70971773 Problem Posttraumatic stress disorder 309.81 Active 57594391 Problem Obsessive-compulsive disorders 300.3 Active 508180381 Problem Generalized anxiety disorder 300.02 Active 06361431 Problem Attention deficit disorder 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 314.00 Active 22335116 Problem Bipolar disorder, unspecified 296.80 Active 56465787 ALLERGIES Substance Reaction Event Type Date Status Latuda agitation Drug Allergy Oct, Active Penicillamine bronchospasm and rash Drug Allergy Oct, Active Cephalexin visual disturbances Drug Allergy Oct, Active Ceftin visual disturbance Drug Allergy Oct, Active Biaxin bronchospasm Drug Allergy Oct, Active Cymbalta 30 Mg Capsule, Delayed Release(e.c.) nausea Non Drug Allergy Oct Active Brintellix 10 Mg Tablet nausea and vomiting Non Drug Allergy Oct, Active SOCIAL HISTORY No smoking Hx information available PLAN OF CARE Activity Details Follow Up prn Reason:TE remaining upper teeth- 2 hours VITAL SIGNS Blood pressure systolic 119 mmHg 2016-11-10 Blood pressure diastolic 84 mmHg 2016-11-10 MEDICATIONS Medication Instructions Dosage Frequency Start Date End Date Duration Status Metformin HCl 1000 MG Orally 2 times a day 1 tablet 12h Active Hydrocodone-Acetaminophen 10-325 mg 1 Tablet by Oral route every 8 hours PRN pain Jul, Active Lomotil 2.5-0.025 MG Orally Four times a day 1 tablet as needed 6h Active Topamax 100 MG Orally Twice a day 1 tablet 12h 10 Dec, 2014 30 days Active Topamax 100 MG Orally Twice a day 1.5 tablet 12h Aug, 30 days Active Synthroid 50 MCG Orally Once a day 1 tablet 24h Active Soma 350 MG Orally Four times a day PRN migraine 1 tablet as needed Active NovoLog Mix 70/30 (70-30) 100 UNIT/ML Subcutaneous 3 times a day 27 units 8h Active Ativan 1 MG Orally twice a day 1 tablet as needed 12h 30 days Active Insulin Detemir 100 unit/mL (3 mL) 60 units by Subcutaneous route 1 time per day qHS February, Active Invega 9 MG Orally Once a day 1 tablet in the morning 24h 30 days Active Cyproheptadine HCl 4 MG Orally once a day 3 tablet 24h Aug, 30 days Active RESULTS No Results PROCEDURES Procedure Date Ordered Related Diagnosis Body Site EXTRAC ERUPTED TOOTH/EXPOSED ROOT Nov 10, 2016 EXTRAC ERUPTED TOOTH/EXPOSED ROOT Nov 10, 2016 EXTRAC ERUPTED TOOTH/EXPOSED ROOT Nov 10, 2016 EXTRAC ERUPTED TOOTH/EXPOSED ROOT Nov 10, 2016 EXTRAC ERUPTED TOOTH/EXPOSED ROOT Nov 10, 2016 EXTRAC ERUPTED TOOTH/EXPOSED ROOT Nov 10, 2016 IMMUNIZATIONS No Known Immunizations
--- OUTSIDE RECORDS SUMMARY | 2017-07-09 17:19 | XMS REPORT ---
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 17463143 Problem Obsessive-compulsive disorders 300.3 Active 534742134 Problem Catatonic schizophrenia, 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 235368393 Problem High risk medication use Z79.899 Active 292018017 Problem Borderline personality disorder in adult F60.3 Active 75395924 Problem Schizoaffective disorder, unspecified F25.9 Active 29338747 Problem Paranoid schizophrenia F20.0 Active 52842452 Problem Posttraumatic stress disorder F43.10 Active 05191139 Problem Attention deficit hyperactivity disorder (ADHD), inattentive type, 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 20045032 Problem Posttraumatic stress disorder 309.81 Active 43765659 Problem Generalized anxiety disorder 300.02 Active 06967967 Problem Attention deficit disorder 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 314.00 Active 73261861 Problem Paranoid schizophrenia, unspecified condition 295.30 Active 65708497 Problem Bipolar disorder, unspecified 296.80 Active 29291467 ALLERGIES Substance Reaction Event Type Date Status Latuda agitation Drug Allergy Aug, Active Penicillamine bronchospasm and rash Drug Allergy Aug, Active Cephalexin visual disturbances Drug Allergy Aug, Active Ceftin visual disturbance Drug Allergy Aug, Active Biaxin bronchospasm Drug Allergy Aug, Active Brintellix 10 Mg Tablet nausea and vomiting Non Drug Allergy Aug, Active Cymbalta 30 Mg Capsule, Delayed Release(e.c.) nausea Non Drug Allergy Aug Active SOCIAL HISTORY No smoking Hx information available PLAN OF CARE Activity Details Follow Up 6 Weeks Reason: VITAL SIGNS Height 65.75 in 2016-09-08 Weight 196.4 lbs 2016-09-08 Temperature 97.6 degrees Fahrenheit 2016-09-08 Heart Rate 104 bpm 2016-09-08 Respiratory Rate 20 2016-09-08 BMI 31.94 kg/m2 2016-09-08 Blood pressure systolic 118 mmHg 2016-09-08 Blood pressure diastolic 78 mmHg 2016-09-08 MEDICATIONS Medication Instructions Dosage Frequency Start Date End Date Duration Status Synthroid 50 MCG Orally Once a day 1 tablet 24h Active Topamax 100 MG Orally Twice a day 1 tablet 12h Dec, 30 days Active Topamax 100 MG Orally Twice a day 1.5 tablet 12h Aug, 30 day(s ) Active Metformin HCl 1000 MG Orally 2 times a day 1 tablet 12h Active NovoLog Mix 70/30 (70-30) 100 UNIT/ML Subcutaneous 3 times a day 27 units 8h Active Lomotil 2.5-0.025 MG Orally Four times a day 1 tablet as needed 6h Active Soma 350 MG Orally Four times a day PRN migraine 1 tablet as needed Active Cyproheptadine HCl 4 MG Orally once a day 3 tablet 24h Aug, 30 day(s) Active Invega 9 MG Orally Once a day 1 tablet in the morning 24h 30 days Active Hydrocodone-Acetaminophen 10-325 mg 1 Tablet by Oral route every 8 hours PRN pain Jul, Active Ativan 1 MG Orally twice a day 1 tablet as needed 12h 30 days Active Insulin Detemir 100 unit/mL (3 mL) 60 units by Subcutaneous route 1 time per day qHS February, Active RESULTS No Results PROCEDURES Procedure Date Ordered Related Diagnosis Body Site [facility] VISIT ESTABLISHED PATIENT Sep 08, 2016 Office Visit, Est Pt., Level 3 Sep 08, 2016 IMMUNIZATIONS No Known Immunizations
--- OUTSIDE RECORDS SUMMARY | 2017-07-09 17:19 | XMS REPORT ---
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 438816933 Problem High risk medication use Z79.899 Active 319708164 Problem Borderline personality disorder in adult F60.3 Active 39978485 Problem Schizoaffective disorder, unspecified F25.9 Active 60243911 Problem Paranoid schizophrenia F20.0 Active 46333123 Problem Posttraumatic stress disorder F43.10 Active 07476653 Problem Attention deficit hyperactivity disorder (ADHD), inattentive type, 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 66560900 Problem Posttraumatic stress disorder 309.81 Active 86721968 Problem Generalized anxiety disorder 300.02 Active 12632549 Problem Attention deficit disorder 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 314.00 Active 97171645 Problem Paranoid schizophrenia, unspecified condition 295.30 Active 57413132 Problem Bipolar disorder, unspecified 296.80 Active 82908781 ALLERGIES Substance Reaction Event Type Date Status Latuda agitation Drug Allergy Sep, Active Penicillamine bronchospasm and rash Drug Allergy Sep, Active Cephalexin visual disturbances Drug Allergy Sep, Active Ceftin visual disturbance Drug Allergy Sep, Active Biaxin bronchospasm Drug Allergy Sep, Active Cymbalta 30 Mg Capsule, Delayed Release(e.c.) nausea Non Drug Allergy Sep Active Brintellix 10 Mg Tablet nausea and vomiting Non Drug Allergy Sep, Active SOCIAL HISTORY No smoking Hx information available PLAN OF CARE Activity Details Follow Up 3 Months Reason: VITAL SIGNS Height 65.75 in 2016-09-27 Weight 195.7 lbs 2016-09-27 Heart Rate 84 bpm 2016-09-27 Respiratory Rate 20 2016-09-27 BMI 31.82 kg/m2 2016-09-27 Blood pressure systolic 104 mmHg 2016-09-27 Blood pressure diastolic 70 mmHg 2016-09-27 MEDICATIONS Medication Instructions Dosage Frequency Start Date End Date Duration Status NovoLog Mix 70/30 (70-30) 100 UNIT/ML Subcutaneous 3 times a day 27 units 8h Active Hydrocodone-Acetaminophen 10-325 mg 1 Tablet by Oral route every 8 hours PRN pain Jul, Active Lomotil 2.5-0.025 MG Orally Four times a day 1 tablet as needed 6h Active Synthroid 50 MCG Orally Once a day 1 tablet 24h Active Topamax 100 MG Orally Twice a day 1.5 tablet 12h Aug, 30 days Active Insulin Detemir 100 unit/mL (3 mL) 60 units by Subcutaneous route 1 time per day qHS February, Active Soma 350 MG Orally Four times a day PRN migraine 1 tablet as needed Active Metformin HCl 1000 MG Orally 2 times a day 1 tablet 12h Active Ativan 1 MG Orally twice a day 1 tablet as needed 12h 30 days Active Topamax 100 MG Orally Twice a day 1 tablet 12h Dec, 30 days Active Cyproheptadine HCl 4 MG Orally once a day 3 tablet 24h 16 Aug, 2016 30 days Active Invega 9 MG Orally Once a day 1 tablet in the morning 24h 30 days Active RESULTS No Results PROCEDURES Procedure Date Ordered Related Diagnosis Body Site [facility] ESTABL[facility] PATIENT Sep 27, 2016 Office Visit, Est Pt., Level 3 Sep 27, 2016 IMMUNIZATIONS No Known Immunizations
[2017-07-09] MEDS ORDERED: [UNRECOGNIZED DRUG - OTHER] (17:32)
[2017-07-09] MEDS ORDERED: NS IV 1000 ML 1,000 ML IV ONE (17:57)
[2017-07-09] MEDS ORDERED: inSUlin ASPART (NovoLOG) 1 UNIT/0.01 ML (CHARGE PER UNIT) SC ONE (18:00)
--- NOTE | 2017-07-09 18:04 | ED General ---
General Chief Complaint: Glucose Problems Stated Complaint: HIGH BLOOD SUGAR, HEADACHE Source of Information: Patient, Spouse Exam Limitations: No Limitations History of Present Illness Time Seen by Provider: 17:55 Initial Comments Patient presents to ER by private conveyance with a chief complaint of her blood sugar being high today. She says that she is recently had some lab work done that showed she had high cholesterol and maybe high white count but she has not had time to review this with her primary care physician. This lab work was done about a month ago. She says this afternoon she started having a headache so she checked her sugar and her blood sugar was 535 and the last time she ate was about noon. This was at 1600 so she took her NovoLog 70/30 27 units that she had missed taking at noon at that time. She waited a half an hour and rechecked it and her blood sugar was 520. When she arrived at the ER she said the blood sugar was 480. She denies nausea, vomiting, fevers, chills, cough, shortness of breath, chest pain, dysuria, rash, abdominal pain, trauma, recent steroid use. She says she is missed a few doses of her insulin. She typically takes Novolin 70/30 27 units 3 times a day and Levemir a total of 67 units daily. She is not sure what her A1c is. She says she has type 2 diabetes she was 26 years old has never had HHS or DKA. She's never been hospitalized for her diabetes. Allergies and Home Medications Allergies Coded Allergies: amoxicillin (Unverified Allergy, Severe, sob, rash, 11/01/10) Penicillins (Verified Adverse Reaction, Severe, RASH, 12/14/05) cefuroxime (Verified Adverse Reaction, Severe, RASH, 12/14/05) clarithromycin (Unverified Adverse Reaction, Mild, nausea and dizziness, ) Home Medications Citalopram Hydrobromide 20 Mg Tablet, #30 (Reported) Citalopram Hydrobromide 40 Mg Tablet, #30 (Reported) Cyproheptadine HCl 4 Mg Tablet, #90 (Reported) Hydrocodone/Acetaminophen 1 Each Tablet, #90 (Reported) Insulin Aspart 100 Unit/1 Ml Insuln.pen, 27 UNITS SQ TID, (Reported) Insulin Detemir 100 Unit/1 Ml Insuln.pen, 60 UNITS SC HS, (Reported) Levothyroxine Sodium 88 Mcg Tablet, 88 MCG PO DAILY, (Reported) Levothyroxine Sodium 50 Mcg Tablet, #30 (Reported) Lorazepam 1 Mg Tab, 2 MG PO HS PRN for ANXIETY, (Reported) TAKES 2 (1MG) TABLETS Lorazepam 1 Mg Tab, 1 MG PO BID PRN for ANXIETY, (Reported) Metformin Hcl 1,000 Mg Tablet, 1,000 MG PO BID, (Reported) Nitrofurantoin Monohyd/M-Cryst 100 Mg Capsule, 1 TAB PO BID for 7 Days, #14 Ref 0 Prescribed by: IVORY DICKSNO on 07/09/171913 Paliperidone 6 Mg Tab.er.24, #60 (Reported) Quetiapine Fumarate 50 Mg Tablet, #60 (Reported) Topiramate 100 Mg Tablet, 100 MG PO BID, (Reported) [adhd meds] , (Reported) Constitutional: see HPI, No chills, No diaphoresis, dizziness (lightheaded), No fever, No malaise EENTM: No hearing loss, No ear pain, No eye pain, No dental problems Respiratory: No cough, No orthopnea, No short of breath, No wheezing Cardiovascular: No chest pain, No Hx of Intervention, No palpitations Gastrointestinal: No abdominal pain, No constipation, No diarrhea, No heartburn , No nausea, No vomiting Genitourinary: No discharge, No dysuria, No frequency : No Musculoskeletal: No back pain, No joint pain Skin: No pruritus, No rash Psychiatric/Neurological: Denies Headache, Denies Numbness, Denies Paresthesia Past [id number]-Etyoex Hx Patient Social History Alcohol Use: Denies Use Recreational Drug Use: Yes (SMOKE 5 CIGARETTES PER DAY) Smoking Status: Current Everyday Smoker Type Used: Cigarettes 2nd Hand Smoke Exposure: Yes Recent Foreign Travel: No Contact w/Someone Who Travel: No Recent Hopitalizations: No Immunizations Up To Date Tetanus Booster (TDap): Less than 5yrs Date of Pneumonia Vaccine: Oct 24, 2010 Date of Influenza Vaccine: Aug 30, 2015 Seasonal Allergies Seasonal Allergies: Yes Surgeries History of Surgeries: Yes (EGD, HIP SURGERY CHILD) Surgeries: Appendectomy, Eye Surgery, Gallbladder, Orthopedic Respiratory History of Respiratory Disorde: No Cardiovascular History of Cardiac Disorders: No Neurological History of Neurological Disord: Yes Neurological Disorders: Headaches /Migraines Reproductive System Hx Reproductive Disorders: No Sexually Transmitted Disease: No HIV/AIDS: No Female Reproductive Disorders: Denies Genitourinary Genitourinary Disorders: UTI-Chronic Gastrointestinal History of Gastrointestinal Di: Yes Gastrointestinal Disorders: Gastroesophageal Reflux Musculoskeletal History of Musculoskeletal Dis: No Endocrine History of Endocrine Disorders: Yes Endocrine Disorders: Diabetes, Insulin dep, Hypothyroidsim HEENT Loss of Vision: Bilateral Hearing Impairment: Denies Cancer History of Cancer: No Psychosocial History of Psychiatric Problem: Yes Behavioral Health Disorders: ADD/ADHD, Anxiety, Suicide Attempts, Personality Disorder, Schizophrenia, Depression Integumentary History of Skin or Integumenta: No Blood Transfusions History of Blood Disorders: No Family Medical History Family Medial History: Family history: Allergy 03 MOTHER 09 BROTHER Family history: Arthritis 03 MOTHER Family history: Asthma 09 BROTHER 09 SISTER Family history: Cardiovascular disease 03 FATHER ("TAKES MEDICATION FOR HIS HEART") Family history: Diabetes mellitus 03 FATHER Family history: Hypertension 03 MOTHER Hypercholesterolemia 03 MOTHER Psychosocial problem 09 SISTER (DEPRESSION) Psychotic disorder 09 SISTER (ANXIETY) No Family History of: Abdominal aortic aneurysm Villalba's disease Alcoholism Aphasia Cancer Cancer of colon Cataract Chest pain Congenital heart disease Congestive heart failure Cystic fibrosis Dementia Dysphagia Family history: Alzheimer's disease Family history: Breast disease Family history: Coronary thrombosis Family history: Gastrointestinal disease Family history: Glaucoma Family history: Osteoporosis Family history: Thyroid disorder Headache Hearing loss Heart disease Hereditary disease History of - anemia History of - disorder History of - respiratory disease History of drug abuse Human immunodeficiency virus (HIV) seropositivity Infertile Kidney disease Malignant neoplasm of lung Myocardial infarction Parkinson's disease Prostate cancer Seizure disorder Stroke Tuberculosis Visual impairment Physical Exam Vital Signs Vital Sign - Last 12Hours 07/09/ 17:22 Temp 97.6 Pulse 98 Resp 18 B/P (MAP) 132/78 Pulse Ox 96 O2 Delivery Room Air Capillary Refill : General Appearance: No Apparent Distress, WD/WN, Anxious Eyes: Bilateral Eye Normal Inspection, Bilateral Eye PERRL, Bilateral Eye EOMI HEENT: PERRL/EOMI, Pharynx Normal Neck: Full Range of Motion, Normal Inspection, Supple Respiratory: Chest Non Tender, Lungs Clear, Normal Breath Sounds Cardiovascular: Regular Rate, Rhythm, No Edema, Normal Peripheral Pulses Gastrointestinal: Normal Bowel Sounds, No Organomegaly, Non Tender, Soft Back: Normal Inspection, No CVA Tenderness Extremity: Normal Capillary Refill, Normal Inspection, Non Tender, No Calf Tenderness, No Pedal Edema Neurologic/Psychiatric: Alert, Oriented x3, No Motor/Sensory Deficits Skin: Normal Color, Warm/Dry Lymphatic: No Adenopathy Progress/Results/Core Measures Results/Orders Lab Results Laboratory Tests Test 07/09/17 17:26 07/09/17 17:58 07/09/17 18:12 Range/Units Glucometer 482 *H 70-110 MG/DL Urine Color YELLOW Urine Clarity CLEAR Urine pH 6.5 5-9 Urine Specific [place] 1.015 L 1.016-1.022 Urine Protein NEGATIVE NEGATIVE Urine Glucose (UA) 4+ H NEGATIVE Urine Ketones NEGATIVE NEGATIVE Urine Nitrite POSITIVE H NEGATIVE Urine Bilirubin NEGATIVE NEGATIVE Urine Urobilinogen NORMAL NORMAL MG/DL Urine Leukocyte Esterase NEGATIVE NEGATIVE Urine RBC (Auto) 1+ H NEGATIVE Urine RBC NONE /HPF Urine WBC RARE /HPF Urine Squamous Epithelial Cells 5-10 /HPF Urine Crystals NONE /LPF Urine Bacteria NEGATIVE /HPF Urine Casts NONE /LPF Urine Mucus NEGATIVE /LPF Urine Yeast FEW H /HPF Urine Culture Indicated YES Urine Test NEGATIVE NEGATIVE White Blood Count 9.6 4.3-11.0 10^3/uL Red Blood Count 4.70 4.35-5.85 10^6/uL Hemoglobin 13.8 11.5-16.0 G/DL Hematocrit 39 35-52 % Mean Corpuscular Volume 83 80-99 FL Mean Corpuscular Hemoglobin 29 25-34 PG Mean Corpuscular Hemoglobin Concent 35 32-36 G/DL Red Cell Distribution Width 13.2 10.0-14.5 % Platelet Count 216 130-400 10^3/uL Mean Platelet Volume 11.7 H 7.4-10.4 FL Neutrophils (%) (Auto) 49 42-75 % Lymphocytes (%) (Auto) 35 12-44 % Monocytes (%) (Auto) 9 0-12 % Eosinophils (%) (Auto) 7 0-10 % Basophils (%) (Auto) 1 0-10 % Neutrophils # (Auto) 4.7 1.8-7.8 X 10^3 Lymphocytes # (Auto) 3.4 1.0-4.0 X 10^3 Monocytes # (Auto) 0.9 0.0-1.0 X 10^3 Eosinophils # (Auto) 0.7 H 0.0-0.3 10^3/uL Basophils # (Auto) 0.1 0.0-0.1 10^3/uL Sodium Level 133 L 135-145 MMOL/L Potassium Level 3.6 3.6-5.0 MMOL/L Chloride Level 102 98-107 MMOL/L Carbon Dioxide Level 19 L 21-32 MMOL/L Anion Gap 12 5-14 MMOL/L Blood Urea Nitrogen 13 7-18 MG/DL Creatinine 0.93 0.60-1.30 MG/DL Estimat Glomerular Filtration Rate > 60 BUN/Creatinine Ratio 14 Glucose Level 485 *H 70-105 MG/DL Calcium Level 9.0 8.5-10.1 MG/DL Magnesium Level 1.7 L 1.8-2.4 MG/DL Total Bilirubin 0.2 0.1-1.0 MG/DL Aspartate Amino Transf (AST/SGOT) 21 5-34 U/L Alanine Aminotransferase (ALT/SGPT) 26 0-55 U/L Alkaline Phosphatase 131 40-136 U/L Total Protein 6.7 6.4-8.2 GM/DL Albumin 3.8 3.2-4.5 GM/DL My Orders Orders - IVORY DICKSON Cbc With Automated Diff (07/09/17 17:57) Comprehensive Metabolic Panel (07/09/17 17:57) Hcg,Qualitative Urine (07/09/17 17:57) Magnesium (07/09/17 17:57) Ua Culture If Indicated (07/09/17 17:57) Saline Lock/Iv-Start (07/09/17 17:57) Ns Iv 1000 Ml (Sodium Chloride 0.9%) (07/09/17 17:57) Insulin Aspart (Novolog) (Novolog (Charg (07/09/17 18:00) Accucheck Stat ONCE (07/09/17 17:59) Ekg Tracing (07/09/17 18:08) Urine Culture (07/09/17 17:58) Fluconazole Tablet (Ed Only) (Diflucan T (07/09/17 18:45) Rx-Nitrofurantoin [place] (Rx-Macrobid) (07/09/17 18:42) Magnesium Oxide Tablet (Mag Ox Tablet) (07/09/17 19:15) Medications Given in ED Current Medications Medications Dose Ordered Sig/Kiarra Route Start Time Stop Time Status Last Admin Dose Admin Fluconazole 150 mg ONCE ONCE PO 07/09/17 18:45 07/09/17 18:46 DC 07/09/17 18:58 150 MG Insulin Aspart 10 unit ONCE ONCE SC 07/09/17 18:00 07/09/17 18:01 DC 07/09/17 18:22 10 UNIT Magnesium Oxide 400 mg ONCE ONCE PO 07/09/17 19:15 07/09/17 19:16 DC 07/09/17 19:46 400 MG Sodium Chloride 1,000 ml @ 0 mls/hr Q0M ONCE IV 07/09/17 17:57 07/09/17 18:00 DC 07/09/17 18:22 1,000 MLS/HR Vital Signs/I&O Vital Sign - Last 12Hours 07/09/17 07/09/17 17:22 19:50 Temp 97.6 98.2 Pulse 98 79 Resp 18 18 B/P (MAP) 132/78 Pulse Ox 96 97 O2 Delivery Room Air Room Air Point of Care Testing Finger Stick Blood Glucose: 482 Blood Glucose Action Taken: rn notified Progress Note : Time: 18:40 Progress Note She has a few yeast in the urine which may represent a yeast infection. Probably not urinary although we'll go ahead and start her on Diflucan if she does not have improving symptoms or the culture grows out yeast and we can continue the Diflucan. Her nitrites are positive however esterase and white blood cells are not very high however this can be delusional sees blood sugar this high she's losing a lot of fluid through the urine. I would air on the side of caution and started her on some Macrobid and have her follow-up with her primary care office on the cultures. ECG Initial ECG Impression Date: Jul 09, 2017 Initial ECG Impression Time: 18:32 Initial ECG Rate: 89 Initial ECG Rhythm: Normal Sinus Initial ECG Intervals: Normal Initial ECG Impression: Normal Initial ECG Comparisson: No Previous ECG Available Comment No ST elevation or depression. 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 Decision time for Depature: 19:11 Referrals: OLGA LUCERO MD (PCP/Family) Primary Care Physician Patient Instructions: Diabetes Type 2 (DC) Add. Discharge Instructions: Drink plenty of fluids. Start taking her insulin on the new regimen of Levemir 35 units twice a day and NovoLog 7030 30 units 3 times a day with meals. Continue to check your blood sugars 3 times a day with one of those times being when you've fasting and 1 time 2 hours after the largest meal of the day. Plan on following up in 1-[address] Lucero, your primary care physician. Take a log of your blood sugars with you. Take the Macrobid one capsule twice a day for the next week and you can call your primary care's office to have them follow-up on the results of the culture in 2-3 days. Avoid starches or sugars such as soda, posterior, flour, bread, rice, potatoes and try and eat plenty of high fiber foods such as broccoli, Kale, spinach, Jonathan. Start a weightbearing exercise program at least 5 minutes a day and worked her way up towards a goal of 25 minutes a day 5 days a week. All discharge instructions reviewed with patient and/or family. Voiced understanding. Scripts Nitrofurantoin Monohyd/M-Cryst (Macrobid 100 mg Capsule) 100 Mg Capsule 1 TAB PO BID for 7 Days, #14 CAP 0 Refills Prov: IVORY DICKSON 07/09/17 Copy Copies To 1: OLGA LUCERO MD, TITUS J Jul 09, 2017 18:04
[2017-07-09 18:06] LABS: BILIRUBIN,URINE NEGATIVE (NEGATIVE); KETONES,URINE NEGATIVE (NEGATIVE); LEUKOCYTE ESTERASE ,URINE NEGATIVE (NEGATIVE); NITRITE,URINE POSITIVE (NEGATIVE); PH,URINE 6.5 (5-9); PROTEIN,URINE NEGATIVE (NEGATIVE); UROBILINOGEN,URINE NORMAL (NORMAL)
[2017-07-09 18:20] LABS: BASOPHILS # (AUTO) 0.1 10^3/uL (0.0-0.1); BASOPHILS % (AUTO) 1 % (0-10); EOSINOPHILS # (AUTO) 0.7 10^3/uL (0.0-0.3); EOSINOPHILS % (AUTO) 7 % (0-10); LYMPHOCYTES # (AUTO) 3.4 X 10^3 (1.0-4.0); LYMPHOCYTES % (AUTO) 35 % (12-44); MEAN CORPUSCULAR HEMOGLOBIN 29 PG (25-34); MEAN CORPUSCULAR HGB CONC 35 G/DL (32-36); MEAN CORPUSCULAR VOLUME 83 FL (80-99); MEAN PLATELET VOLUME 11.7 FL (7.4-10.4); MONOCYTES # (AUTO) 0.9 X 10^3 (0.0-1.0); MONOCYTES % (AUTO) 9 % (0-12); NEUTROPHILS # (AUTO) 4.7 X 10^3 (1.8-7.8); NEUTROPHILS % (AUTO) 49 % (42-75); PLATELET COUNT 216 10^3/uL (130-400); RED CELL DISTRIBUTION WIDTH 13.2 % (10.0-14.5); WHITE BLOOD COUNT 9.6 10^3/uL (4.3-11.0)
[2017-07-09 18:33] LABS: WBC,URINE RARE /HPF; YEAST,URINE FEW /HPF
[2017-07-09] MEDS ORDERED: RX-NITROFURANTOIN 100 MG (MACROBID) CAP PPK#2 PO STA (18:42)
[2017-07-09 18:45] LABS: ALANINE AMINOTRANSFERASE 26 U/L (0-55); ALBUMIN 3.8 GM/DL (3.2-4.5); ANION GAP 12 MMOL/L (5-14); ASPARTATE AMINO TRANSFERASE 21 U/L (5-34); BILIRUBIN,TOTAL 0.2 MG/DL (0.1-1.0); BLOOD UREA NITROGEN 13 MG/DL (7-18); BUN/CREATININE RATIO 14; CARBON DIOXIDE 19 MMOL/L (21-32); CHLORIDE 102 MMOL/L (98-107); CREATININE SERUM 0.93 MG/DL (0.60-1.30); GFR ESTIMATED > 60; MAGNESIUM 1.7 MG/DL (1.8-2.4); POTASSIUM 3.6 MMOL/L (3.6-5.0); SODIUM 133 MMOL/L (135-145); TOTAL PROTEIN 6.7 GM/DL (6.4-8.2)
[2017-07-09] MEDS ORDERED: FLUCONAZOLE 150 MG TABLET (ED ONLY) PO ONE (18:45)
[2017-07-09 18:50] LABS: GLUCOSE 485 MG/DL (70-105)
[2017-07-09] MEDS ORDERED: NITR-65 PO (19:14)
[2017-07-09] MEDS ORDERED: MAGNESIUM OXIDE (MAG-OX)400 MG TAB PO ONE (19:15)
[2017-07-09 19:50] VITALS: BP 110/64
== END 2017-07-09 19:49 | disposition home or self-care (01) ==
LOC: EDUNIT# 17:11 → ER 17:13
DX: E11.649 Type 2 diabetes mellitus with hypoglycemia without coma (principal); N39.0 Urinary tract infection, site not specified; B37.3 Candidiasis of vulva and vagina; E78.00 Pure hypercholesterolemia, unspecified; G43.909 Migraine, unspecified, not intractable, without status migrainosus; K21.9 Gastro-esophageal reflux disease without esophagitis; E03.9 Hypothyroidism, unspecified; F90.9 Attention-deficit hyperactivity disorder, unspecified type; F41.9 Anxiety disorder, unspecified; F32.9 Major depressive disorder, single episode, unspecified; F20.9 Schizophrenia, unspecified; F17.210 Nicotine dependence, cigarettes, uncomplicated; Z90.49 Acquired absence of other specified parts of digestive tract; Z79.4 Long term (current) use of insulin; Z91.5 Personal history of self-harm; Z82.49 Family history of ischemic heart disease and other diseases of the circulatory system; Z79.84 Long term (current) use of oral hypoglycemic drugs
CPT/HCPCS: 36415; 80053; 81000; 82962; 83735; 84703; 85025; 87088; 93005; 96360; 96372

== ENCOUNTER 2017-07-29 01:03 | Emergency (ER) | payer MEDICARE, MEDICAID ==
[~2017-07-29] VITALS: Ht 167.6 cm; Wt 87.1 kg
[~2017-07-29 01:03] MED LIST changes: +NAPR500T3 PO; -NAPR500T4 PO; +[UNRECOGNIZED DRUG - OTHER]
--- OUTSIDE RECORDS SUMMARY | 2017-07-29 01:10 | XMS REPORT | Clinical Summary ---
Author Author [facility] Organization [facility] Address Unknown Phone Unavailable Care Team Providers Care Used Car Sales Manager Name Role Phone PCP Unavailable Source Comments Some departments are not documenting in the electronic medical record. If you do not see the information that you expected, contact Release of Information in the Health Information Management department at [phone] for further assistance in locating additional records.[facility] Allergies Active Allergy Reactions Severity Noted Date [...]
--- OUTSIDE RECORDS SUMMARY | 2017-07-29 01:10 | XMS REPORT ---
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 38841430 Problem Catatonic schizophrenia, 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 016034506 Problem Borderline personality disorder F60.3 Active 82983951 Problem High risk medication use Z79.899 Active 222712846 Problem Schizoaffective disorder, unspecified F25.9 Active 23274756 Problem Paranoid schizophrenia F20.0 Active 65539639 Problem Posttraumatic stress disorder F43.10 Active 44159960 Problem Attention deficit hyperactivity disorder (ADHD), inattentive type, 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 90253337 Problem Posttraumatic stress disorder 309.81 Active 46842403 Problem Obsessive-compulsive disorders 300.3 Active 327877473 Problem Generalized anxiety disorder 300.02 Active 41688169 Problem Attention deficit disorder 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 314.00 Active 73389389 Problem Bipolar disorder, unspecified 296.80 Active 66650307 ALLERGIES Substance Reaction Event Type Date Status Latuda agitation Drug Allergy Nov, Active Penicillamine bronchospasm and rash Drug Allergy Nov, Active Cephalexin visual disturbances Drug Allergy Nov, Active Ceftin visual disturbance Drug Allergy Nov, Active Biaxin bronchospasm Drug Allergy Nov, Active Brintellix 10 Mg Tablet nausea and vomiting Non Drug Allergy Nov, Active Cymbalta 30 Mg Capsule, Delayed Release(e.c.) nausea Non Drug Allergy Nov Active SOCIAL HISTORY Never Assessed PLAN OF CARE Activity Details Follow Up 2 Weeks Reason:re-eval VITAL SIGNS Blood pressure systolic 142 mmHg 2016-12-16 Blood pressure diastolic 92 mmHg 2016-12-16 MEDICATIONS Medication Instructions Dosage Frequency Start Date End Date Duration Status Topamax 100 MG Orally Twice a day 1.5 tablet 12h Aug, 30 days Active NovoLog Mix 70/30 (70-30) 100 UNIT/ML Subcutaneous 3 times a day 27 units 8h Active Metformin HCl 1000 MG Orally 2 times a day 1 tablet 12h Active Cyproheptadine HCl 4 MG Orally once a day 4 tablet 24h Nov, 30 day(s) Active Citalopram Hydrobromide 20 MG Orally Once a day 1 tablet 24h Nov, 30 day(s) Active Ativan 1 MG Orally twice a day 1 tablet as needed 12h 30 days Active Synthroid 50 MCG Orally Once a day 1 tablet 24h Active Lomotil 2.5-0.025 MG Orally Four times a day 1 tablet as needed 6h Active Soma 350 MG Orally Four times a day PRN migraine 1 tablet as needed Active Invega 6 MG Orally Once a day 2 tablets 24h Nov, 30 day(s) Active Insulin Detemir 100 unit/mL (3 mL) 60 units by Subcutaneous route 1 time per day [facility] February, Active Hydrocodone-Acetaminophen 10-325 mg 1 Tablet by Oral route every 8 hours PRN pain Jul, Active Seroquel 50 MG Orally as needed twice a day 1 tablet 12h Nov, 30 day(s) Active RESULTS No Results PROCEDURES Procedure Date Ordered Result Body Site LTD ORAL EVALUATION - PROBLEM FOCUS Dec 16, 2016 IMMUNIZATIONS No Known Immunizations MEDICAL (GENERAL) HISTORY Type Description Date Medical History diabetes Medical History thyroid Surgical History appendix Surgical History gallbladder Surgical History eyes Surgical History hip Surgical History MRI on back and pelvis 06/08 Hospitalization History surgeries Hospitalization History [facility] Suicide attempt by hanging 06/14/2016
--- OUTSIDE RECORDS SUMMARY | 2017-07-29 01:11 | XMS REPORT ---
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 37370622 Problem Catatonic schizophrenia, 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 419615328 Problem Borderline personality disorder F60.3 Active 83138820 Problem High risk medication use Z79.899 Active 977218136 Problem Schizoaffective disorder, unspecified F25.9 Active 64627556 Problem Paranoid schizophrenia F20.0 Active 53570570 Problem Posttraumatic stress disorder F43.10 Active 08406329 Problem Attention deficit hyperactivity disorder (ADHD), inattentive type, 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 09645241 Problem Posttraumatic stress disorder 309.81 Active 87906722 Problem Obsessive-compulsive disorders 300.3 Active 374482195 Problem Generalized anxiety disorder 300.02 Active 68157584 Problem Attention deficit disorder 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 314.00 Active 80072425 Problem Bipolar disorder, unspecified 296.80 Active 39238282 ALLERGIES Substance Reaction Event Type Date Status [...] Months Reason: VITAL SIGNS Height 65.75 in 2016-11-24 Weight 194.0 lbs 2016-11-24 Heart Rate 96 bpm 2016-11-24 Respiratory Rate 20 2016-11-24 BMI 31.55 kg/m2 2016-11-24 Blood pressure systolic 109 mmHg 2016-11-24 Blood pressure diastolic 75 mmHg 2016-11-24 MEDICATIONS Medication Instructions Dosage Frequency Start Date End Date Duration Status Metformin HCl 1000 MG Orally 2 times a day 1 tablet 12h Active Synthroid 50 MCG Orally Once a day 1 tablet 24h Active Invega 6 MG Orally Once a day 2 tablets 24h Nov, 30 day(s) Active Topamax 100 MG Orally Twice a day 1.5 tablet 12h Aug, 30 days Active Soma 350 MG Orally Four times a day PRN migraine 1 tablet as needed Active Citalopram Hydrobromide 20 MG Orally Once a day 1 tablet 24h Nov, 30 day(s) Active Insulin Detemir 100 unit/mL (3 mL) 60 units by Subcutaneous route 1 time per day [facility] February, Active NovoLog Mix 70/30 (70-30) 100 UNIT/ML Subcutaneous 3 times a day 27 units 8h Active Hydrocodone-Acetaminophen 10-325 mg 1 Tablet by Oral route every 8 hours PRN pain Jul, Active Cyproheptadine HCl 4 MG Orally once a day 4 tablet 24h Nov, 30 day(s) Active Seroquel 50 MG Orally as needed twice a day 1 tablet 12h Nov, 30 day(s) Active Lomotil 2.5-0.025 MG Orally Four times a day 1 tablet as needed 6h Active Ativan 1 MG Orally twice a day 1 tablet as needed 12h 30 days Active RESULTS No Results PROCEDURES Procedure Date Ordered Result Body Site [facility] VISIT ESTABLISHED PATIENT Nov 24, 2016 IMMUNIZATIONS No Known Immunizations MEDICAL (GENERAL) HISTORY Type Description Date Medical History diabetes Medical History thyroid Surgical History appendix Surgical History gallbladder Surgical History eyes Surgical History hip Surgical History MRI on back and pelvis 06/08 Hospitalization History surgeries Hospitalization History [facility] Suicide attempt by hanging 06/14/2016
--- OUTSIDE RECORDS SUMMARY | 2017-07-29 01:11 | XMS REPORT ---
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 009814062 Problem Borderline personality disorder F60.3 Active 24118804 Problem High risk medication use Z79.899 Active 866809577 Problem Schizoaffective disorder, unspecified F25.9 Active 24850609 Problem Paranoid schizophrenia F20.0 Active 93971047 Problem Posttraumatic stress disorder F43.10 Active 16296161 Problem Attention deficit hyperactivity disorder (ADHD), inattentive type, 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 92487202 Problem Posttraumatic stress disorder 309.81 Active 37640772 Problem Obsessive-compulsive disorders 300.3 Active 538699054 Problem Generalized anxiety disorder 300.02 Active 63022519 Problem Attention deficit disorder 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 314.00 Active 32311087 Problem Bipolar disorder, unspecified 296.80 Active 75564713 ALLERGIES Substance Reaction Event Type Date Status Latuda agitation Drug Allergy Nov, Active Penicillamine bronchospasm and rash Drug Allergy Nov, Active Cephalexin visual disturbances Drug Allergy Nov, Active Ceftin visual disturbance Drug Allergy Nov, Active Biaxin bronchospasm Drug Allergy Nov, Active Cymbalta 30 Mg Capsule, Delayed Release(e.c.) nausea Non Drug Allergy Nov Active Brintellix 10 Mg Tablet nausea and vomiting Non Drug Allergy Nov, Active SOCIAL HISTORY Never Assessed PLAN OF CARE Activity Details Follow Up 6-8 Weeks Reason:impressions for complete dentures VITAL SIGNS Blood pressure systolic 103 mmHg 2016-12-07 Blood pressure diastolic 73 mmHg 2016-12-07 MEDICATIONS Medication Instructions Dosage Frequency Start Date End Date Duration Status Lomotil 2.5-0.025 MG Orally Four times a day 1 tablet as needed 6h Active NovoLog Mix 70/30 (70-30) 100 UNIT/ML Subcutaneous 3 times a day 27 units 8h Active Metformin HCl 1000 MG Orally 2 times a day 1 tablet 12h Active Soma 350 MG Orally Four times a day PRN migraine 1 tablet as needed Active Citalopram Hydrobromide 20 MG Orally Once a day 1 tablet 24h Nov, 30 day(s) Active Ativan 1 MG Orally twice a day 1 tablet as needed 12h 30 days Active Synthroid 50 MCG Orally Once a day 1 tablet 24h Active Cyproheptadine HCl 4 MG Orally once a day 4 tablet 24h Nov, 30 day(s) Active Hydrocodone-Acetaminophen 10-325 mg 1 Tablet by Oral route every 8 hours PRN pain Jul, Active Invega 6 MG Orally Once a day 2 tablets 24h Nov, 30 day(s) Active Insulin Detemir 100 unit/mL (3 mL) 60 units by Subcutaneous route 1 time per day [facility] February, Active Topamax 100 MG Orally Twice a day 1.5 tablet 12h Aug, 30 days Active Seroquel 50 MG Orally as needed twice a day 1 tablet 12h Nov, 30 day(s) Active RESULTS No Results PROCEDURES Procedure Date Ordered Result Body Site SURG REMOVAL ERUPTED TOOTH Dec 07, 2016 SURG REMOVAL ERUPTED TOOTH Dec 07, 2016 EXTRAC ERUPTED TOOTH/EXPOSED ROOT Dec 07, 2016 EXTRAC ERUPTED TOOTH/EXPOSED ROOT Dec 07, 2016 EXTRAC ERUPTED TOOTH/EXPOSED ROOT Dec 07, 2016 EXTRAC ERUPTED TOOTH/EXPOSED ROOT Dec 07, 2016 SURG REMOVAL ERUPTED TOOTH Dec 07, 2016 EXTRAC ERUPTED TOOTH/EXPOSED ROOT Dec 07, 2016 EXTRAC ERUPTED TOOTH/EXPOSED ROOT Dec 07, 2016 EXTRAC ERUPTED TOOTH/EXPOSED ROOT Dec 07, 2016 EXTRAC ERUPTED TOOTH/EXPOSED ROOT Dec 07, 2016 IMMUNIZATIONS No Known Immunizations MEDICAL (GENERAL) HISTORY Type Description Date Medical History diabetes Medical History thyroid Surgical History appendix Surgical History gallbladder Surgical History eyes Surgical History hip Surgical History MRI on back and pelvis 06/08 Hospitalization History surgeries Hospitalization History [facility] Suicide attempt by hanging 06/14/2016
--- OUTSIDE RECORDS SUMMARY | 2017-07-29 01:12 | XMS REPORT ---
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 45175702 Problem Catatonic schizophrenia, 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 945333002 Problem Borderline personality disorder F60.3 Active 60545003 Problem High risk medication use Z79.899 Active 195016345 Problem Schizoaffective disorder, unspecified F25.9 Active 52742136 Problem Paranoid schizophrenia F20.0 Active 71650887 Problem Posttraumatic stress disorder F43.10 Active 97573979 Problem Attention deficit hyperactivity disorder (ADHD), inattentive type, 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 98596342 Problem Posttraumatic stress disorder 309.81 Active 39769195 Problem Obsessive-compulsive disorders 300.3 Active 252086835 Problem Generalized anxiety disorder 300.02 Active 86292328 Problem Attention deficit disorder 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 314.00 Active 47461068 Problem Bipolar disorder, unspecified 296.80 Active 46866130 ALLERGIES No Information SOCIAL HISTORY Never Assessed PLAN OF CARE VITAL SIGNS MEDICATIONS Unknown Medications RESULTS No Results PROCEDURES No Known procedures IMMUNIZATIONS No Known Immunizations MEDICAL (GENERAL) HISTORY Type Description Date Medical History diabetes Medical History thyroid Surgical History appendix Surgical History gallbladder Surgical History eyes Surgical History hip Surgical History MRI on back and pelvis 06/08 Hospitalization History surgeries Hospitalization History [facility] Suicide attempt by hanging 06/14/2016
--- NOTE | 2017-07-29 01:29 | ED Back Pain ---
General Chief Complaint: Back Problems Stated Complaint: LOWER BACK PAIN Nursing Triage Note: PT TO ED 9 W/ C/O LOWER BACK PAIN ONSET X2-3 DAYS, WORSE THIS AM. ALSO REPORTS SOME NAUSEA YESTERDAY. NO OTHER C/O VOICED Nursing Sepsis Screen: No Definite Risk Source of Information: Patient, Other Exam Limitations: No Limitations History of Present Illness Time Seen by Provider: 01:13 Initial Comments Patient presents to ER by private conveyance with significant other with chief complaint that she's had 4 days progressively worsening low back pain that is worse on either side of her lumbar spine. She says about a month ago she was diagnosed with a UTI and was put on antibiotics which she completed about one half to 2 weeks ago. She was using Macrobid. She's had no painful urination or discharge however tonight when she was eating she did get a wave of nausea. She' s had otherwise modest pain 7 out of 10 concentrated in the back that does not radiate and is worse with movement better with lying still and unrelated to bowel or bladder. She's had no incontinence, numbness, saddle anesthesia, hesitancy of urine, falls or weakness. She has a history of chronic low back pain but no history of surgery of her back. She's had her gallbladder and appendix out. She is concerned that perhaps her urinary tract infection is not completely treated and has come back as a kidney infection and that's causing her back pain and that's why she presents tonight. Allergies and Home Medications Allergies Coded Allergies: amoxicillin (Unverified Allergy, Severe, sob, rash, 11/01/10) Penicillins (Verified Adverse Reaction, Severe, RASH, 12/14/05) cefuroxime (Verified Adverse Reaction, Severe, RASH, 12/14/05) clarithromycin (Unverified Adverse Reaction, Mild, nausea and dizziness, ) Home Medications Citalopram Hydrobromide 20 Mg Tablet, #30 (Reported) Citalopram Hydrobromide 40 Mg Tablet, #30 (Reported) Cyproheptadine HCl 4 Mg Tablet, #90 (Reported) Hydrocodone/Acetaminophen 1 Each Tablet, #90 (Reported) Insulin Aspart 100 Unit/1 Ml Insuln.pen, 27 UNITS SQ TID, (Reported) Insulin Detemir 100 Unit/1 Ml Insuln.pen, 60 UNITS SC HS, (Reported) Levothyroxine Sodium 88 Mcg Tablet, 88 MCG PO DAILY, (Reported) Levothyroxine Sodium 50 Mcg Tablet, #30 (Reported) Lorazepam 1 Mg Tab, 2 MG PO HS PRN for ANXIETY, (Reported) TAKES 2 (1MG) TABLETS Lorazepam 1 Mg Tab, 1 MG PO BID PRN for ANXIETY, (Reported) Metformin Hcl 1,000 Mg Tablet, 1,000 MG PO BID, (Reported) Nitrofurantoin Monohyd/M-Cryst 100 Mg Capsule, 1 TAB PO BID for 7 Days, #14 Ref 0 Prescribed by: IVORY DICKSON on 07/09/171913 Paliperidone 6 Mg Tab.er.24, #60 (Reported) Quetiapine Fumarate 50 Mg Tablet, #60 (Reported) Topiramate 100 Mg Tablet, 100 MG PO BID, (Reported) [adhd meds] , (Reported) Constitutional: No chills, No diaphoresis, No dizziness, No fever, No malaise, No weakness Respiratory: No cough, No phlegm, No short of breath Cardiovascular: No chest pain, No palpitations Gastrointestinal: No abdominal pain, No constipation, No diarrhea, nausea, No vomiting Genitourinary: No discharge, No dysuria, No hesitancy, No incontinence : No (she is presently on her period) Musculoskeletal: see HPI, back pain Skin: No pruritus, No rash Psychiatric/Neurological: Denies Headache, Denies Numbness, Denies Paresthesia Past [id number]-Avafag Hx Patient Social History Alcohol Use: Denies Use Recreational Drug Use: No Smoking Status: Current Everyday Smoker Type Used: Cigarettes 2nd Hand Smoke Exposure: Yes Recent Foreign Travel: No Contact w/Someone Who Travel: No Recent Infectious Disease Expo: No Recent Hopitalizations: No Physical Abuse: No Sexual Abuse: No Mistreated: No Fear: No Immunizations Up To Date Tetanus Booster (TDap): Less than 5yrs Date of Pneumonia Vaccine: Oct 24, 2010 Date of Influenza Vaccine: Aug 30, 2015 Seasonal Allergies Seasonal Allergies: Yes Surgeries History of Surgeries: Yes (EGD, HIP SURGERY CHILD) Surgeries: Appendectomy, Eye Surgery, Gallbladder, Orthopedic Respiratory History of Respiratory Disorde: No Cardiovascular History of Cardiac Disorders: No Neurological History of Neurological Disord: Yes Neurological Disorders: Headaches /Migraines Reproductive System Hx Reproductive Disorders: No Sexually Transmitted Disease: No HIV/AIDS: No Female Reproductive Disorders: Denies Genitourinary History of Genitourinary Disor: No Genitourinary Disorders: UTI-Chronic Gastrointestinal History of Gastrointestinal Di: Yes Gastrointestinal Disorders: Gastroesophageal Reflux Musculoskeletal History of Musculoskeletal Dis: No Endocrine History of Endocrine Disorders: Yes Endocrine Disorders: Diabetes, Insulin dep, Hypothyroidsim HEENT Loss of Vision: Bilateral Hearing Impairment: Denies Cancer History of Cancer: No Psychosocial History of Psychiatric Problem: Yes Behavioral Health Disorders: ADD/ADHD, Anxiety, Suicide Attempts, Personality Disorder, Schizophrenia, Depression Suicide Risk Score: 0 Integumentary History of Skin or Integumenta: No Blood Transfusions History of Blood Disorders: No Family Medical History Family Medial History: Family history: Allergy 03 MOTHER 09 BROTHER Family history: Arthritis 03 MOTHER Family history: Asthma 09 BROTHER 09 SISTER Family history: Cardiovascular disease 03 FATHER ("TAKES MEDICATION FOR HIS HEART") Family history: Diabetes mellitus 03 FATHER Family history: Hypertension 03 MOTHER Hypercholesterolemia 03 MOTHER Psychosocial problem 09 SISTER (DEPRESSION) Psychotic disorder 09 SISTER (ANXIETY) No Family History of: Abdominal aortic aneurysm [place]'s disease Alcoholism Aphasia Cancer Cancer of colon Cataract Chest pain Congenital heart disease Congestive heart failure Cystic fibrosis Dementia Dysphagia Family history: Alzheimer's disease Family history: Breast disease Family history: Coronary thrombosis Family history: Gastrointestinal disease Family history: Glaucoma Family history: Osteoporosis Family history: Thyroid disorder Headache Hearing loss Heart disease Hereditary disease History of - anemia History of - disorder History of - respiratory disease History of drug abuse Human immunodeficiency virus (HIV) seropositivity Infertile Kidney disease Malignant neoplasm of lung Myocardial infarction Parkinson's disease Prostate cancer Seizure disorder Stroke Tuberculosis Visual impairment Physical Exam Vital Signs Vital Sign - Last 12Hours 07/29/17 01:08 Temp 96.3 Pulse 98 Resp 20 B/P (MAP) 160/110 Pulse Ox 99 O2 Delivery Room Air Capillary Refill : Less Than 3 Seconds General Appearance: No Apparent Distress, WD/WN HEENT: PERRL/EOMI, Pharynx Normal Neck: Full Range of Motion, Normal Inspection, Non Tender Cardiovascular: Regular Rate, Rhythm, No Edema Respiratory: Chest Non Tender, Lungs Clear Peripheral Pulses: 2+ Dorsalis Pedis (R), 2+ Left Dors-Pedis (L) Gastrointestinal: Normal Bowel Sounds, Non Tender, Soft Back: Normal Inspection, No CVA Tenderness, Vertebral Tenderness (lumbar bilateral; mildly midline) Extremity: Normal Capillary Refill, No Pedal Edema Neurologic/Psychiatric: Alert, Oriented x3 Skin: Normal Color, Warm/Dry Progress/Results/Core Measures Results/Orders Lab Results Laboratory Tests Test 07/29/17 01:24 Range/Units Urine Color RED H Urine Clarity CLOUDY H Urine pH 6 5-9 Urine Specific [place] 1.020 1.016-1.022 Urine Protein 2+ H NEGATIVE Urine Glucose (UA) 4+ H NEGATIVE Urine Ketones NEGATIVE NEGATIVE Urine Nitrite NEGATIVE NEGATIVE Urine Bilirubin NEGATIVE NEGATIVE Urine Urobilinogen NORMAL NORMAL MG/DL Urine Leukocyte Esterase 1+ H NEGATIVE Urine RBC (Auto) 5+ H NEGATIVE Urine RBC TNTC H /HPF Urine WBC 0-2 /HPF Urine Squamous Epithelial Cells 0-2 /HPF Urine Crystals NONE /LPF Urine Bacteria NEGATIVE /HPF Urine Casts NONE /LPF Urine Mucus NEGATIVE /LPF Urine Culture Indicated NO My Orders Orders - IVORY DICKSON Ua Culture If Indicated (07/29/17 01:22) Urine Bedside (07/29/17 01:29) Vital Signs/I&O Vital Sign - Last 12Hours 07/29/17 01:08 Temp 96.3 Pulse 98 Resp 20 B/P (MAP) 160/110 Pulse Ox 99 O2 Delivery Room Air Blood Pressure Mean: 127 Progress Note : Time: 01:26 Progress Note We will obtain a bedside UPT and UA. This appears to be classic lumbago. Assisted Living Associate her on exercises and strengthening back muscles and core muscles. We'll give her muscle relaxers and NSAIDs. Departure Impression Impression: Primary Impression: Low back pain Qualified Codes: M54.5 - Low back pain Disposition: 01 HOME, SELF-CARE Condition: Stable Departure-Patient Inst. Decision time for Depature: 02:11 Referrals: OLGA LUCERO MD (PCP/Family) Primary Care Physician Patient Instructions: Low Back Pain (DC), Lumbar Muscle Strain (DC) Add. Discharge Instructions: Get some rest and apply ice alternating with heat to your back. You can use icy hot or Biofreeze type creams as well. Plenty of fluids and use the Naprosyn twice a day or ibuprofen 4 tablets 3 times a day for the next 2 weeks. Take 1000 mg of Tylenol as needed for breakthrough pain. Wear the back brace as needed on days that it helps. Work on the core strengthening exercises that we discussed. If you're not seeing relief and 2 weeks you should follow up with your primary care physician for further evaluation and management. If you're not getting improvement in the next few days to 1 week you can machine operator hop picker the prednisone prescription sent to the pharmacy and take it as directed 1 tablet twice a day for 5 days. All discharge instructions reviewed with patient and/or family. Voiced understanding. Scripts Cyclobenzaprine HCl (Cyclobenzaprine HCl) 10 Mg Tablet 10 MG PO Q8H Y for SPASMS, #15 TAB 0 Refills Prov: IVORY DICKSON 07/29/17 Prednisone (Prednisone) 20 Mg Tab 20 MG PO BID for 5 Days, #10 TAB 0 Refills Prov: IVORY DICKSON 07/29/17 Copy Copies To 1: OLGA LUCERO MD, TITUS J Jul 29, 2017 01:29
[2017-07-29 01:33] LABS: BILIRUBIN,URINE NEGATIVE (NEGATIVE); KETONES,URINE NEGATIVE (NEGATIVE); LEUKOCYTE ESTERASE ,URINE 1+ (NEGATIVE); NITRITE,URINE NEGATIVE (NEGATIVE); PH,URINE 6 (5-9); PROTEIN,URINE 2+ (NEGATIVE); UROBILINOGEN,URINE NORMAL (NORMAL)
[2017-07-29 01:47] LABS: WBC,URINE 0-2 /HPF
[2017-07-29 01:48] LABS: SQUAMOUS EPITHELIAL CELL,UR 0-2 /HPF
[2017-07-29] MEDS ORDERED: PRD20T PO (02:15)
[2017-07-29] MEDS ORDERED: CYCL10TA9 PO (02:15)
[2017-07-29] MEDS ORDERED: RX-CYCLOBENZAPRINE 10 MG (FLEXERIL) TAB PPK#3 PO STA (02:15)
[2017-07-29 02:20] VITALS: BP 126/86
== END 2017-07-29 02:20 | disposition home or self-care (01) ==
LOC: EDUNIT# 01:03 → ER 01:06
DX: M54.5 Low back pain (principal); E11.9 Type 2 diabetes mellitus without complications; E03.9 Hypothyroidism, unspecified; K21.9 Gastro-esophageal reflux disease without esophagitis; G43.909 Migraine, unspecified, not intractable, without status migrainosus; F20.9 Schizophrenia, unspecified; F32.9 Major depressive disorder, single episode, unspecified; F41.9 Anxiety disorder, unspecified; F90.9 Attention-deficit hyperactivity disorder, unspecified type; H54.3 Unqualified visual loss, both eyes; F17.210 Nicotine dependence, cigarettes, uncomplicated; Z91.5 Personal history of self-harm; Z90.49 Acquired absence of other specified parts of digestive tract; Z79.4 Long term (current) use of insulin; Z87.440 Personal history of urinary (tract) infections
CPT/HCPCS: 81000; 84703; 99283

== ENCOUNTER → 2017-08-08 | Outpatient (CLI) | payer MEDICARE, MEDICAID ==
[~2017-08-08] MED LIST changes: +GADOBUTROL 10 MMOL/10 ML (GADAVIST) VIAL IV ONE; +PRD20T PO
--- NOTE | 2017-08-08 19:58 | Diagnostic Imaging Report ---
CLINICAL INDICATION: Patient with elevated labs prolactin level. EXAM: MRI of the brain and pituitary using pituitary protocol performed without and with 8 mL of Gadovist IV gadolinium. Sequences include sagittal T1, axial flair, axial T1, axial DWI, axial ADC map, axial gradient echo, coronal T1 thin, coronal T1 fat sat thin, sagittal T1 thin, coronal T2 fat-sat thin, axial T1 post contrast whole brain, coronal T1 post IV gadolinium thin fat sat, and sagittal T1 post gadolinium thin. COMPARISON: None. FINDINGS: SELLA/SUPRASELLAR REGIONS: The posterior pituitary gland T1 signal is diminished with no mass seen. Otherwise, the sella and suprasellar regions have normal anatomic appearance. There is homogenous enhancement of the pituitary gland with no mass lesions. The infundibulum is seen midline with normal appearance. The visualized portions of the optic nerves and pathways are unremarkable. ORBITS/ GLOBES: Visualized portions are unremarkable. CAVERNOUS SINUS/ MECKEL'S CAVE: Unremarkable. BRAIN/ INTRACRANIAL STRUCTURES: Unremarkable. SINUSES: The visualized paranasal sinuses and mastoid air cells are unremarkable. CRANIUM/ EXTRACRANIAL SOFT TISSUE: Unremarkable. IMPRESSION: 1: The posterior pituitary gland T1 signal is diminished with no mass seen. 2: Otherwise, unremarkable MRI of the brain and pituitary. Dictated by: Dictated on workstation # [id number]
== END ==
LOC: RAD 17:48
PROVIDERS: ATTEND Family Medicine
DX: E22.9 Hyperfunction of pituitary gland, unspecified (principal)
CPT/HCPCS: 70553

== ENCOUNTER → 2017-12-23 | Outpatient (CLI) | payer MEDICARE, MEDICAID ==
[~2017-12-23] MED LIST changes: -GADOBUTROL 10 MMOL/10 ML (GADAVIST) VIAL IV ONE; +NAPR-915 PO; -NAPR500T3 PO
[2017-12-23 10:43] LABS: BASOPHILS # (AUTO) 0.1 10^3/uL (0.0-0.1); BASOPHILS % (AUTO) 1 % (0-10); EOSINOPHILS # (AUTO) 0.3 10^3/uL (0.0-0.3); EOSINOPHILS % (AUTO) 3 % (0-10); HEMATOCRIT 43 % (35-52); HEMOGLOBIN 15.1 G/DL (11.5-16.0); LYMPHOCYTES # (AUTO) 4.9 X 10^3 (1.0-4.0); LYMPHOCYTES % (AUTO) 41 % (12-44); MEAN CORPUSCULAR HEMOGLOBIN 30 PG (25-34); MEAN CORPUSCULAR HGB CONC 35 G/DL (32-36); MEAN CORPUSCULAR VOLUME 84 FL (80-99); MEAN PLATELET VOLUME 10.5 FL (7.4-10.4); MONOCYTES # (AUTO) 1.1 X 10^3 (0.0-1.0); MONOCYTES % (AUTO) 9 % (0-12); NEUTROPHILS # (AUTO) 5.4 X 10^3 (1.8-7.8); NEUTROPHILS % (AUTO) 46 % (42-75); PLATELET COUNT 247 10^3/uL (130-400); RED BLOOD COUNT 5.07 10^6/uL (4.35-5.85); RED CELL DISTRIBUTION WIDTH 13.5 % (10.0-14.5); WHITE BLOOD COUNT 11.8 10^3/uL (4.3-11.0)
[2017-12-23 11:11] LABS: ALANINE AMINOTRANSFERASE 27 U/L (0-55); ALKALINE PHOSPHATASE 97 U/L (40-136); BILIRUBIN,TOTAL 0.2 MG/DL (0.1-1.0); BUN/CREATININE RATIO 16; CARBON DIOXIDE 21 MMOL/L (21-32); CHLORIDE 109 MMOL/L (98-107); CREATININE SERUM 0.76 MG/DL (0.60-1.30); GFR ESTIMATED > 60; GLUCOSE 89 MG/DL (70-105); SODIUM 143 MMOL/L (135-145); TOTAL PROTEIN 6.4 GM/DL (6.4-8.2)
== END ==
LOC: LAB 10:31
PROVIDERS: ATTEND Nurse Practitioner Family
DX: E03.9 Hypothyroidism, unspecified (principal); E10.9 Type 1 diabetes mellitus without complications; R42 Dizziness and giddiness
CPT/HCPCS: 36415; 80053; 83036; 84443; 85025

== ENCOUNTER 2017-12-27 01:46 | Emergency (ER) | payer MEDICARE, MEDICAID ==
[~2017-12-27] VITALS: Ht 165.1 cm; Wt 88.9 kg
--- OUTSIDE RECORDS SUMMARY | 2017-12-27 01:51 | XMS REPORT ---
Author Author YAIR Muñoz Organization 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 56488726 Problem Catatonic schizophrenia, 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 415303726 Problem Borderline personality disorder F60.3 Active 84050699 Problem High risk medication use Z79.899 Active 481871535 Problem Schizoaffective disorder, unspecified F25.9 Active 37007562 Problem Paranoid schizophrenia F20.0 Active 15992765 Problem Posttraumatic stress disorder F43.10 Active 21186696 Problem Attention deficit hyperactivity disorder (ADHD), inattentive type, 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 86227038 Problem Posttraumatic stress disorder 309.81 Active 00333235 Problem Obsessive-compulsive disorders 300.3 Active 760128107 Problem Generalized anxiety disorder 300.02 Active 17437885 Problem Attention deficit disorder 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 314.00 Active 84253859 Problem Bipolar disorder, unspecified 296.80 Active 84745125 ALLERGIES No Information SOCIAL HISTORY Never Assessed PLAN OF CARE VITAL SIGNS MEDICATIONS Medication Instructions Dosage Frequency Start Date End Date Duration Status Citalopram Hydrobromide 20 mg Orally Once a day 1 tablet daily with 40 mg tablet 24h February, 30 day(s) Active Citalopram Hydrobromide 40 mg Orally Once a day 1 tablet with the 20 mg tablet 24h February, 30 days Active RESULTS No Results PROCEDURES No Known procedures IMMUNIZATIONS No Known Immunizations MEDICAL (GENERAL) HISTORY Type Description Date Medical History diabetes Medical History thyroid Surgical History appendix Surgical History gallbladder Surgical History eyes Surgical History hip Surgical History MRI on back and pelvis 06/08 Hospitalization History surgeries Hospitalization History [facility] Su[facility] attempt by hanging 06/14/2016
--- OUTSIDE RECORDS SUMMARY | 2017-12-27 01:51 | XMS REPORT | Clinical Summary ---
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 If you do not see the information that you expected, contact Release of Information in the Health Information Management department at [phone] for further assistance in locating additional records.[facility] Allergies Active Allergy Reactions Severity Noted Date Comments Amoxicillin PALPITATIONS Low 09/08/2016 Cephalexin VISION CHANGES Medium 09/08/2016 Clarithromycin DIARRHEA, STOMACH UPSET Low 09/08/2016 Duloxetine NAUSEA ONLY Low 09/08/2016 Penicillins RASH, PALPITATIONS Medium 09/08/2016 Current Medications Prescription Sig. Disp. Refills [...] 1998 CERVICAL CANCER SCREENING 2011 INFLUENZA VACCINE 05/24/2018 Results Not on filefrom Last 3 Months
--- OUTSIDE RECORDS SUMMARY | 2017-12-27 01:52 | XMS REPORT ---
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 65505338 Problem Catatonic schizophrenia, 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 169923634 Problem Borderline personality disorder F60.3 Active 25873347 Problem High risk medication use Z79.899 Active 588985134 Problem Schizoaffective disorder, unspecified F25.9 Active 89476969 Problem Paranoid schizophrenia F20.0 Active 78095824 Problem Posttraumatic stress disorder F43.10 Active 02010054 Problem Attention deficit hyperactivity disorder (ADHD), inattentive type, 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 18320809 Problem Posttraumatic stress disorder 309.81 Active 71125467 Problem Obsessive-compulsive disorders 300.3 Active 382365412 Problem Generalized anxiety disorder 300.02 Active 15372055 Problem Attention deficit disorder 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 314.00 Active 75888302 Problem Bipolar disorder, unspecified 296.80 Active 77533727 ALLERGIES No Information SOCIAL HISTORY Never Assessed PLAN OF CARE Activity Details Follow Up 4 Weeks Reason: VITAL SIGNS Height 65.75 in 2017-03-16 Weight 193 lbs 2017-03-16 Respiratory Rate 18 2017-03-16 BMI 31.38 kg/m2 2017-03-16 Blood pressure systolic 110 mmHg 2017-03-16 Blood pressure diastolic 72 mmHg 2017-03-16 MEDICATIONS Medication Instructions Dosage Frequency Start Date End Date Duration Status Invega 6 MG Orally Once a day 2 tablets 24h Nov, 30 days Active Citalopram Hydrobromide 20 MG Orally Once a day 3 tablet 24h February, 30 day(s) Active Hydrocodone-Acetaminophen 10-325 mg 1 Tablet by Oral route every 8 hours PRN pain Jul, Active Cyproheptadine HCl 4 MG Orally once a day 3 tablets 24h Jan, Active Insulin Detemir 100 unit/mL (3 mL) 67 units by Subcutaneous route 1 time per day [facility] February, Active Metformin HCl 1000 MG Orally 2 times a day 1 tablet 12h Active Seroquel 50 MG Orally as needed twice a day 1 tablet 12h Nov, Active Topamax 100 MG Orally Twice a day 1.5 tablet 12h Aug, Active NovoLog Mix 70/30 (70-30) 100 UNIT/ML Subcutaneous 3 times a day 27 units 8h Active Ativan 1 MG Orally twice a day 1 tablet as needed 12h Active Zyprexa Zydis 15 MG Orally Once a day 1 tablet on the tongue and allow to dissolve 24h Jan, Active RESULTS No Results PROCEDURES Procedure Date Ordered Result Body Site REPLACED BY [facility] VISIT ESTABLISHED PATIENT March 16, 2017 IMMUNIZATIONS No Known Immunizations MEDICAL (GENERAL) HISTORY Type Description Date Medical History diabetes Medical History thyroid Surgical History appendix Surgical History gallbladder Surgical History eyes Surgical History hip Surgical History MRI on back and pelvis 06/08 Hospitalization History surgeries Hospitalization History [facility] Su[facility] attempt by hanging 06/14/2016
--- OUTSIDE RECORDS SUMMARY | 2017-12-27 01:53 | XMS REPORT ---
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 38233499 Problem Catatonic schizophrenia, 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 354172669 Problem Borderline personality disorder F60.3 Active 16866932 Problem High risk medication use Z79.899 Active 697869103 Problem Schizoaffective disorder, unspecified F25.9 Active 54240061 Problem Paranoid schizophrenia F20.0 Active 24757472 Problem Posttraumatic stress disorder F43.10 Active 47386736 Problem Attention deficit hyperactivity disorder (ADHD), inattentive type, 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 93328028 Problem Posttraumatic stress disorder 309.81 Active 21748498 Problem Obsessive-compulsive disorders 300.3 Active 725257184 Problem Generalized anxiety disorder 300.02 Active 07361606 Problem Attention deficit disorder 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 314.00 Active 31526039 Problem Bipolar disorder, unspecified 296.80 Active 32743826 ALLERGIES Substance Reaction Event Type Date Status [...] Never Assessed PLAN OF CARE VITAL SIGNS Height 65.75 in 2016-12-20 Blood pressure systolic 129 mmHg 2016-12-20 Blood pressure diastolic 82 mmHg 2016-12-20 MEDICATIONS Medication Instructions Dosage Frequency Start Date End Date Duration Status Topamax 100 MG Orally Twice a day 1.5 tablet 12h 16 Aug, 2016 30 days Active Synthroid 50 MCG Orally Once a day 1 tablet 24h Active Metformin HCl 1000 MG Orally 2 times a day 1 tablet 12h Active Cyproheptadine HCl 4 MG Orally once a day 4 tablet 24h Nov, 30 day(s) Active Invega 6 MG Orally Once a day 2 tablets 24h Nov, 30 day(s) Active Citalopram Hydrobromide 20 MG Orally Once a day 1 tablet 24h Nov, 30 day(s) Active NovoLog Mix 70/30 (70-30) 100 UNIT/ML Subcutaneous 3 times a day 27 units 8h Active Hydrocodone-Acetaminophen 10-325 mg 1 Tablet by Oral route every 8 hours PRN pain Jul, Active Soma 350 MG Orally Four times a day PRN migraine 1 tablet as needed Active Ativan 1 MG Orally twice a day 1 tablet as needed 12h 30 days Active Insulin Detemir 100 unit/mL (3 mL) 60 units by Subcutaneous route 1 time per day [facility] February, Active Lomotil 2.5-0.025 MG Orally Four times a day 1 tablet as needed 6h Active Seroquel 50 MG Orally as needed twice a day 1 tablet 12h Nov, 30 day(s) Active RESULTS No Results PROCEDURES Procedure Date Ordered Result Body Site LTD ORAL EVALUATION - PROBLEM FOCUS Dec 20, 2016 INTRAORL-PERIAPICAL 1 FILM [id number] Dec 20, 2016 IMMUNIZATIONS No Known Immunizations MEDICAL (GENERAL) HISTORY Type Description Date Medical History diabetes Medical History thyroid Surgical History appendix Surgical History gallbladder Surgical History eyes Surgical History hip Surgical History MRI on back and pelvis 06/08 Hospitalization History surgeries Hospitalization History [facility] Su[facility] attempt by hanging 06/14/2016
--- OUTSIDE RECORDS SUMMARY | 2017-12-27 01:54 | XMS REPORT ---
Author Author YAIR Muñoz 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 33909319 Problem Catatonic schizophrenia, 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 493725077 Problem Borderline personality disorder F60.3 Active 76542407 Problem High risk medication use Z79.899 Active 040430800 Problem Schizoaffective disorder, unspecified F25.9 Active 94286031 Problem Paranoid schizophrenia F20.0 Active 80604568 Problem Posttraumatic stress disorder F43.10 Active 82010782 Problem Attention deficit hyperactivity disorder (ADHD), inattentive type, 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 96522145 Problem Posttraumatic stress disorder 309.81 Active 08770491 Problem Obsessive-compulsive disorders 300.3 Active 467979140 Problem Generalized anxiety disorder 300.02 Active 57704972 Problem Attention deficit disorder 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 314.00 Active 81277354 Problem Bipolar disorder, unspecified 296.80 Active 47757199 ALLERGIES Substance Reaction Event Type Date Status Latuda agitation Drug Allergy February, Active Penicillamine bronchospasm and rash Drug Allergy February, Active Cephalexin visual disturbances Drug Allergy February, Active Ceftin visual disturbance Drug Allergy February, Active Biaxin bronchospasm Drug Allergy February, Active Cymbalta 30 Mg Capsule, Delayed Release(e.c.) nausea Non Drug Allergy February Active Brintellix 10 Mg Tablet nausea and vomiting Non Drug Allergy February, Active SOCIAL HISTORY Never Assessed PLAN OF CARE Activity Details Follow Up 6 Weeks Reason: VITAL SIGNS Height 65.75 in 2017-03-02 Weight 195.2 lbs 2017-03-02 Heart Rate 108 bpm 2017-03-02 Respiratory Rate 20 2017-03-02 BMI 31.74 kg/m2 2017-03-02 Blood pressure systolic 112 mmHg 2017-03-02 Blood pressure diastolic 70 mmHg 2017-03-02 MEDICATIONS Medication Instructions Dosage Frequency Start Date End Date Duration Status NovoLog Mix 70/30 (70-30) 100 UNIT/ML Subcutaneous 3 times a day 27 units 8h Active Insulin Detemir 100 unit/mL (3 mL) 67 units by Subcutaneous route 1 time per day [facility] February, Active Topamax 100 MG Orally Twice a day 1.5 tablet 12h Aug, 30 days Active Hydrocodone-Acetaminophen 10-325 mg 1 Tablet by Oral route every 8 hours PRN pain Jul, Active Seroquel 50 MG Orally as needed twice a day 1 tablet 12h Nov, 30 days Active Ativan 1 MG Orally twice a day 1 tablet as needed 12h 30 days Active Zyprexa Zydis 15 MG Orally Once a day 1 tablet on the tongue and allow to dissolve 24h Jan, 30 days Active Cyproheptadine HCl 4 MG Orally once a day 3 tablets 24h Jan, 30 days Active Invega 6 MG Orally Once a day 2 tablets 24h Nov, 30 days Active Citalopram Hydrobromide 40 MG Orally Once a day 1 tablet 24h February, 30 day(s) Active Metformin HCl 1000 MG Orally 2 times a day 1 tablet 12h Active RESULTS Name Result Date Reference Range URINE DRUG SCREEN (IN HOUSE) 2017-03-02 Lot # [id number] Exp date Control + COCAINE Negative AMPH Negative MTD Negative THC Negative OPIATE Negative BENZO Negative PCP Negative BAR Negative OXY Negative MAMP Negative TCA BUP Negative MDMA Negative PROCEDURES Procedure Date Ordered Result [facility] ESTABL[facility] PATIENT March 02, 2017 IMMUNIZATIONS No Known Immunizations MEDICAL (GENERAL) HISTORY Type Description Date Medical History diabetes Medical History thyroid Surgical History appendix Surgical History gallbladder Surgical History eyes Surgical History hip Surgical History MRI on back and pelvis 06/08 Hospitalization History surgeries Hospitalization History [facility] Suicide attempt by hanging 06/14/2016
--- OUTSIDE RECORDS SUMMARY | 2017-12-27 01:57 | XMS REPORT | Continuity of Care Document ---
Author Author [facility] Address Unknown Phone Unavailable Allergies Active Description Code Type Severity Reaction Onset Reported/Identified Relationship to Patient Clinical Status Yes cefuroxime [id number] Drug Allergy Severe RASH 12/14/2005 Yes Penicillins [id number] Drug Allergy Severe RASH 12/14/2005 Yes amoxicillin [id number] Drug Allergy Severe sob, rash 11/01/2010 Yes [...] Capsule, Delayed Release(E.C.) Drug Allergy N/A N/A 2011 Yes Cymbalta 30 mg Capsule, Delayed Release(E.C.) Drug Allergy 2011 Yes clarithromycin [id number] Drug Allergy Mild nausea and dizz 02/07/2014 Yes Brintellix 10 mg tablet Drug Allergy N/A N/A 02/22/2014 Yes cephalexin Drug Allergy N/A N/A 03/11/2014 Medications There is no data. 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 07/17/2010 AFUA FINLEY APRN 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 07/17/2010 AFUA FINLEY APRN 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 07/17/2010 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 07/17/2010 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 07/17/2010 FINLEY BOARD SAW RUNNER, AFUA BOSWELL 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 07/17/2010 FINLEY BOARD SAW RUNNER, AFUA BOSWELL 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 07/17/2010 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 07/17/2010 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 07/17/2010 FINLEY BOARD SAW RUNNER, AFUA BOSWELL 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 07/17/2010 FINLEY BOARD SAW RUNNER, AFUA BOSWELL 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 07/17/2010 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 [...] AFFECTIVE 07/17/2010 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 07/17/2010 FINLEY BOARD SAW RUNNER, AFUA BOSWELL 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 07/17/2010 FINLEY BOARD SAW RUNNER, AFUA BOSWELL 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 07/17/2010 FINLEY BOARD SAW RUNNER, AFUA BOSWELL 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 07/17/2010 FINLEY BOARD SAW RUNNER, AFUA LIZAMAH 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 07/17/2010 FINLEY BOARD SAW RUNNER, AFUA BOSWELL 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 07/17/2010 FINLEY BOARD SAW RUNNER, AFUA LIZAMAH 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 07/17/2010 FINLEY BOARD SAW RUNNER, AFUA BOSWELL 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 07/17/2010 FINLEY BOARD SAW RUNNER, AFUA LIZAMAH 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 07/17/2010 FINLEY BOARD SAW RUNNER, AFUA BOSWELL 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 07/17/2010 FINLEY BOARD SAW RUNNER, AFUA LIZAMAH 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 07/17/2010 FINLEY BOARD SAW RUNNER, AFUA BOSWELL 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 07/17/2010 FINLEY BOARD SAW RUNNER, AFUA LIZAMAH 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 07/17/2010 FINLEY BOARD SAW RUNNER, AFUA BOSWELL 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 07/17/2010 FINLEY BOARD SAW RUNNER, AFUA BOSWELL 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 07/17/2010 FINLEY BOARD SAW RUNNER, AFUA BOSWELL 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 07/17/2010 FINLEY BOARD SAW RUNNER, AFUA BOSWELL 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 07/17/2010 FINLEY BOARD SAW RUNNER, AFUA BOSWELL 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 07/17/2010 FINLEY BOARD SAW RUNNER, AFUA BOSWELL 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 07/17/2010 LILA BOARD SAW RUNNER, BRYAN 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 07/17/2010 LILA BOARD SAW RUNNER, BRYAN 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 07/17/2010 VYAS DO ALVARO K 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 07/17/2010 VYAS DO ALVARO K 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 07/17/2010 LILA BOARD SAW RUNNER, BRYAN 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 07/17/2010 LILA BOARD SAW RUNNER, BRYAN 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 07/17/2010 LILA BOARD SAW RUNNER, BRYAN 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 07/17/2010 LILA BOARD SAW RUNNER, BRYAN 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 07/17/2010 LILA BOARD SAW RUNNER, BRYAN 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 07/17/2010 LILA BOARD SAW RUNNER, BRYAN 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 07/17/2010 LILA BOARD SAW RUNNER, BRYAN 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 07/17/2010 LILA BOARD SAW RUNNER, BRYAN 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 07/17/2010 VYAS DO ALVARO K 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 07/17/2010 VYAS DO ALVARO K 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 07/17/2010 LILA BOARD SAW RUNNER, BRYAN 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 07/17/2010 LILA BOARD SAW RUNNER, BRYAN 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 07/17/2010 LILA BOARD SAW RUNNER, BRYAN 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 07/17/2010 LILA BOARD SAW RUNNER, BRYAN 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 07/17/2010 LILA BOARD SAW RUNNER, BRYAN 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 07/17/2010 LILA BOARD SAW RUNNER, BRYAN 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 07/17/2010 LILA BOARD SAW RUNNER, BRYAN 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 07/17/2010 LILA BOARD SAW RUNNER, BRYAN 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 07/17/2010 LILA BOARD SAW RUNNER, BRYAN 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 07/17/2010 LILA BOARD SAW RUNNER, BRYAN 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 07/17/2010 VYAS DO, ALVARO K 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 07/17/2010 VYAS DO, ALVARO K 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 07/17/2010 VYAS DO, ALVARO K 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 07/17/2010 VYAS DO, ALVARO K 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 07/17/2010 LILA BOARD SAW RUNNER, BRYAN 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 07/17/2010 LILA BOARD SAW RUNNER, BRYAN 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 07/17/2010 LILA BOARD SAW RUNNER, BRYAN 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 07/17/2010 LILA BOARD SAW RUNNER, BRYAN 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 07/17/2010 LILA BOARD SAW RUNNER, BRYAN 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 07/17/2010 LILA BOARD SAW RUNNER, BRYAN 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 07/17/2010 LILA BOARD SAW RUNNER, BRYAN 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 07/17/2010 LILA BOARD SAW RUNNER, BRYAN 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 07/17/2010 LILA BOARD SAW RUNNER, BRYAN 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 07/17/2010 LILA BOARD SAW RUNNER, BRYAN 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 11/01/2010 Ot 682.3 [...] 12/11/2010 Ot 295.70 12/11/2010 Ot 780.79 02/22/2011 FINLEYMONICO GAYNiharika AFUA BOSWELL 278.01 OBESITY, MORBID (BMI >40) 02/22/2011 FINLEY BOARD SAW RUNNER, AFUA BOSWELL 401.1 HYPERTENSION, BENIGN ESSENTIAL 02/22/2011 TUSHAR GAYNiharika AFUA BOSWELL 278.01 OBESITY, MORBID (BMI >40) 02/22/2011 TUSHAR CHAUDHRY AFUA LIZAMAH 401.1 HYPERTENSION, BENIGN ESSENTIAL 02/22/2011 278.01 OBESITY, MORBID (BMI >40) 02/22/2011 401.1 HYPERTENSION, BENIGN ESSENTIAL 02/22/2011 FINLEYMONICO GAYNiharika AFUA LIZAMAH 278.01 OBESITY, MORBID (BMI >40) 02/22/2011 FINLEY BOARD SAW RUNNER, AFUA LIZAMAH 401.1 HYPERTENSION, BENIGN ESSENTIAL 02/22/2011 278.01 OBESITY, MORBID (BMI >40) 02/22/2011 401.1 HYPERTENSION, BENIGN ESSENTIAL 02/22/2011 FINLEYMONICO GAYNiharika AFUA LZIAMAH 278.01 OBESITY, MORBID (BMI >40) 02/22/2011 TUSHAR GAYNiharika AFUA LIZAMAH 401.1 HYPERTENSION, BENIGN ESSENTIAL 02/22/2011 [...] 02/22/2011 401.1 HYPERTENSION, BENIGN ESSENTIAL 02/22/2011 FINLEY BOARD SAW RUNNER, AFUA BOSWELL 278.01 OBESITY, MORBID (BMI >40) 02/22/2011 FINLEY BOARD SAW RUNNER, AFUA ANDREIA 401.1 HYPERTENSION, BENIGN ESSENTIAL 02/22/2011 FINLEY BOARD SAW RUNNER, AFUA ANDREIA 278.01 OBESITY, MORBID (BMI >40) 02/22/2011 FINLEY BOARD SAW RUNNER, AFUA ANDREIA 401.1 HYPERTENSION, BENIGN ESSENTIAL 02/22/2011 FINLEY BOARD SAW RUNNER, AFUA ANDREIA 278.01 OBESITY, MORBID (BMI >40) 02/22/2011 FINLEY BOARD SAW RUNNER, AFUA ANDREIA 401.1 HYPERTENSION, BENIGN ESSENTIAL 02/22/2011 FINLEY BOARD SAW RUNNER, AFUA ANDREIA 278.01 OBESITY, MORBID (BMI >40) 02/22/2011 FINLEY BOARD SAW RUNNER, AFUA LIZAMAH 401.1 HYPERTENSION, BENIGN ESSENTIAL 02/22/2011 FINLEY BOARD SAW RUNNER, AFUA ANDREIA 278.01 OBESITY, MORBID (BMI >40) 02/22/2011 FINLEY BOARD SAW RUNNER, AFUA LIZAMAH 401.1 HYPERTENSION, BENIGN ESSENTIAL 02/22/2011 FINLEY BOARD SAW RUNNER, AFUA ANDREIA 278.01 OBESITY, MORBID (BMI >40) 02/22/2011 FINLEY BOARD SAW RUNNER, AFUA ANDREIA 401.1 HYPERTENSION, BENIGN ESSENTIAL 02/22/2011 FINLEY BOARD SAW RUNNER, AFUA ANDREIA 278.01 OBESITY, MORBID (BMI >40) 02/22/2011 FINLEY BOARD SAW RUNNER, AFUA ANDREIA 401.1 HYPERTENSION, BENIGN ESSENTIAL 02/22/2011 FINLEY BOARD SAW RUNNER, AFUA ANDREIA 278.01 OBESITY, MORBID (BMI >40) 02/22/2011 FNILEY BOARD SAW RUNNER, AFUA ANDREIA 401.1 HYPERTENSION, BENIGN ESSENTIAL 02/22/2011 FINLEY BOARD SAW RUNNER, AFUA ANDREIA 278.01 OBESITY, MORBID (BMI >40) 02/22/2011 FINLEY BOARD SAW RUNNER, AFUA ANDREIA 401.1 HYPERTENSION, BENIGN ESSENTIAL 02/22/2011 LILA BOARD SAW RUNNER, BRYAN 278.01 OBESITY, MORBID (BMI >40) 02/22/2011 LILA BOARD SAW RUNNER, BRYAN 401.1 HYPERTENSION, BENIGN ESSENTIAL 02/22/2011 ALVARO VYAS DO 278.01 OBESITY, MORBID (BMI >40) 02/22/2011 ASAEL CHAPMAN ALVARO K 401.1 HYPERTENSION, BENIGN ESSENTIAL 02/22/2011 LILA BOARD SAW RUNNER, BRYAN 278.01 OBESITY, MORBID (BMI >40) 02/22/2011 LILA BOARD SAW RUNNER, BRYAN 401.1 HYPERTENSION, BENIGN ESSENTIAL 02/22/2011 LILA BOARD SAW RUNNER, BRYAN 278.01 OBESITY, MORBID (BMI >40) 02/22/2011 LILA BOARD SAW RUNNER, BRYAN 401.1 HYPERTENSION, BENIGN ESSENTIAL 02/22/2011 LILA BOARD SAW RUNNER, BRYAN 278.01 OBESITY, MORBID (BMI >40) 02/22/2011 LILA BOARD SAW RUNNER, BRYAN 401.1 HYPERTENSION, BENIGN ESSENTIAL 02/22/2011 LILA BOARD SAW RUNNER, BRYAN 278.01 OBESITY, MORBID (BMI >40) 02/22/2011 LILA BOARD SAW RUNNER, BRYAN 401.1 HYPERTENSION, BENIGN ESSENTIAL 02/22/2011 ASAEL CHAPMAN ALVARO K 278.01 OBESITY, MORBID (BMI >40) 02/22/2011 ASAEL CHAPMAN ALVARO K 401.1 HYPERTENSION, BENIGN ESSENTIAL 02/22/2011 LILA BOARD SAW RUNNER, BRYAN 278.01 OBESITY, MORBID (BMI >40) 02/22/2011 LILA BOARD SAW RUNNER, BRYAN 401.1 HYPERTENSION, BENIGN ESSENTIAL 02/22/2011 LILA BOARD SAW RUNNER, BRYAN 278.01 OBESITY, MORBID (BMI >40) 02/22/2011 LILA BOARD SAW RUNNER, BRYAN 401.1 HYPERTENSION, BENIGN ESSENTIAL 02/22/2011 LILA BOARD SAW RUNNER, BRYAN 278.01 OBESITY, MORBID (BMI >40) 02/22/2011 LILA BOARD SAW RUNNER, BRYAN 401.1 HYPERTENSION, BENIGN ESSENTIAL 02/22/2011 LILA BOARD SAW RUNNER, BRYAN 278.01 OBESITY, MORBID (BMI >40) 02/22/2011 LILA BOARD SAW RUNNER, BRYAN 401.1 HYPERTENSION, BENIGN ESSENTIAL 02/22/2011 LILA BOARD SAW RUNNER, BRYAN 278.01 OBESITY, MORBID (BMI >40) 02/22/2011 LILA BOARD SAW RUNNER, BRYAN 401.1 HYPERTENSION, BENIGN ESSENTIAL 02/22/2011 ASAEL CHAPMAN ALVARO K 278.01 OBESITY, MORBID (BMI >40) 02/22/2011 ASAEL CHAPMAN ALVARO K 401.1 HYPERTENSION, BENIGN ESSENTIAL 02/22/2011 VYAS DO ALVARO K 278.01 OBESITY, MORBID (BMI >40) 02/22/2011 ALVARO VYAS DO 401.1 HYPERTENSION, BENIGN ESSENTIAL 02/22/2011 LILA BOARD SAW RUNNER, BRYAN 278.01 OBESITY, MORBID (BMI >40) 02/22/2011 LILA BOARD SAW RUNNER, BRYAN 401.1 HYPERTENSION, BENIGN ESSENTIAL 02/22/2011 LILA BOARD SAW RUNNER, BRYAN 278.01 OBESITY, MORBID (BMI >40) 02/22/2011 LILA BOARD SAW RUNNER, BRYAN 401.1 HYPERTENSION, BENIGN ESSENTIAL 02/22/2011 LILA BOARD SAW RUNNER, BRYAN 278.01 OBESITY, MORBID (BMI >40) 02/22/2011 LILA BOARD SAW RUNNER, BRYAN 401.1 HYPERTENSION, BENIGN ESSENTIAL 02/22/2011 LILA BOARD SAW RUNNER, BRYAN 278.01 OBESITY, MORBID (BMI >40) 02/22/2011 LILA BOARD SAW RUNNER, BRYAN 401.1 HYPERTENSION, BENIGN ESSENTIAL 02/22/2011 LILA BOARD SAW RUNNER, BRYAN 278.01 OBESITY, MORBID (BMI >40) 02/22/2011 LILA BOARD SAW RUNNER, BRYAN 401.1 HYPERTENSION, BENIGN ESSENTIAL 02/26/2011 TUSHAR [...] HEALTH CARE FACILITY 02/26/2011 TUSHAR CHAUDHRY AFUA ANDREIA 244.9 UNSPECIFIED [...] EXAM, ROUTINE, AT HEALTH CARE FACILITY 02/26/2011 FINLEY RICHA AFUA BOSWELL 244.9 UNSPECIFIED ACQUIRED HYPOTHYROIDISM 02/26/2011 TUSHAR GAYNiharika AFUA BOSWELL 250.00 DIABETES MELLITUS WITHOUT MENTION OF COMPLICATION TYPE II OR UNSPECIFIED TYPE NOT STATED UNCONTROLLED 02/26/2011 FINLEYMONICO CHAUDHRY AFUA BOSWELL 719.47 PAIN IN JOINT INVOLVING ANKLE AND FOOT 02/26/2011 TUSHAR CHAUDHRY AFUA BOSWELL V70.0 GENERAL MEDICAL EXAM, ROUTINE, AT HEALTH CARE FACILITY 02/26/2011 FINLEY RICHA AFUA BOSWELL 244.9 UNSPECIFIED ACQUIRED HYPOTHYROIDISM 02/26/2011 FINLEY RICHA AFUA BOSWELL 250.00 DIABETES MELLITUS WITHOUT MENTION [...] BOSWELL 244.9 UNSPECIFIED ACQUIRED HYPOTHYROIDISM 02/26/2011 FINLEY RICHA AFUA BOSWELL 250.00 DIABETES MELLITUS WITHOUT MENTION [...] IN JOINT INVOLVING ANKLE AND FOOT 02/26/2011 TEMO SHARP APRNETTE V70.0 GENERAL MEDICAL EXAM, ROUTINE, AT HEALTH CARE FACILITY 02/26/2011 VYAS DO ALVARO K 244.9 UNSPECIFIED ACQUIRED HYPOTHYROIDISM 02/26/2011 VYAS DO ALVARO K 250.00 DIABETES MELLITUS WITHOUT [...] UNSPECIFIED TYPE NOT STATED UNCONTROLLED 02/26/2011 LILA BOARD SAW RUNNER, BRYAN 719.47 PAIN IN JOINT INVOLVING ANKLE AND FOOT 02/26/2011 LILA BOARD SAW RUNNER, BRYAN V70.0 GENERAL MEDICAL EXAM, ROUTINE, AT HEALTH CARE FACILITY 02/26/2011 LILA BOARD SAW RUNNER, BRYAN 244.9 UNSPECIFIED ACQUIRED HYPOTHYROIDISM 02/26/2011 LILA BOARD SAW RUNNER, BRYAN 250.00 DIABETES MELLITUS WITHOUT MENTION OF COMPLICATION TYPE II OR UNSPECIFIED TYPE NOT STATED UNCONTROLLED 02/26/2011 LILA BOARD SAW RUNNER BRYAN 719.47 PAIN IN JOINT INVOLVING ANKLE AND FOOT 02/26/2011 LILA BOARD SAW RUNNER, BRYAN V70.0 GENERAL MEDICAL EXAM, ROUTINE, AT HEALTH CARE FACILITY 02/26/2011 LILA BOARD SAW RUNNER, BRYAN 244.9 UNSPECIFIED ACQUIRED HYPOTHYROIDISM 02/26/2011 LILA BOARD SAW RUNNER, BRYAN 250.00 DIABETES MELLITUS WITHOUT MENTION OF COMPLICATION TYPE II OR UNSPECIFIED TYPE NOT STATED UNCONTROLLED 02/26/2011 LILA CHAUDHRY BRYAN 719.47 PAIN IN JOINT INVOLVING ANKLE AND FOOT 02/26/2011 LILADINA CHAUDHRY, BRYAN V70.0 GENERAL MEDICAL EXAM, ROUTINE, AT HEALTH CARE FACILITY 02/26/2011 LILA BOARD SAW RUNNER, BRYAN 244.9 UNSPECIFIED ACQUIRED HYPOTHYROIDISM 02/26/2011 LILA BOARD SAW RUNNER, BRYAN 250.00 DIABETES MELLITUS WITHOUT MENTION OF [...] IN JOINT INVOLVING ANKLE AND FOOT 02/26/2011 GEE VYAS DOA K V70.0 GENERAL MEDICAL EXAM, ROUTINE, AT HEALTH CARE FACILITY 02/26/2011 LILA BOARD SAW RUNNER, BRYAN 244.9 UNSPECIFIED ACQUIRED HYPOTHYROIDISM 02/26/2011 LILA BOARD SAW RUNNER, BRYAN 250.00 DIABETES MELLITUS WITHOUT MENTION OF COMPLICATION TYPE II OR UNSPECIFIED TYPE NOT STATED UNCONTROLLED 02/26/2011 LILA BOARD SAW RUNNER, BRYAN 719.47 PAIN IN JOINT INVOLVING ANKLE AND FOOT 02/26/2011 LILA BOARD SAW RUNNER, BRYAN V70.0 GENERAL MEDICAL EXAM, ROUTINE, AT HEALTH CARE FACILITY 02/26/2011 LILA RICHA BRYAN 244.9 UNSPECIFIED ACQUIRED HYPOTHYROIDISM 02/26/2011 LILA BOARD SAW RUNNER, BRYAN 250.00 DIABETES MELLITUS WITHOUT MENTION OF COMPLICATION TYPE II OR UNSPECIFIED TYPE NOT STATED UNCONTROLLED 02/26/2011 LILADINA CHAUDHRY BRYAN 719.47 PAIN IN JOINT INVOLVING ANKLE AND FOOT 02/26/2011 LILADINA GAYN, BRYAN V70.0 GENERAL MEDICAL EXAM, ROUTINE, AT HEALTH CARE FACILITY 02/26/2011 LILADINA CHAUDHRY BRYAN 244.9 UNSPECIFIED ACQUIRED HYPOTHYROIDISM 02/26/2011 LILADINA CHAUDHRY, BRYAN 250.00 DIABETES MELLITUS WITHOUT MENTION OF COMPLICATION TYPE II OR UNSPECIFIED TYPE NOT STATED UNCONTROLLED 02/26/2011 LILADINA CHAUDHRY, BRYAN 719.47 PAIN IN JOINT INVOLVING ANKLE AND FOOT 02/26/2011 LILA CHAUDHRY, BRYAN V70.0 GENERAL MEDICAL EXAM, ROUTINE, AT HEALTH CARE FACILITY 02/26/2011 LILA CHAUDHRY, BRYAN 244.9 UNSPECIFIED ACQUIRED HYPOTHYROIDISM 02/26/2011 LILADINA CHAUDHRY, BRYAN 250.00 DIABETES MELLITUS WITHOUT MENTION OF COMPLICATION TYPE II OR UNSPECIFIED TYPE NOT STATED UNCONTROLLED 02/26/2011 LILA CHAUDHRY, BRYAN 719.47 PAIN IN JOINT INVOLVING ANKLE AND FOOT 02/26/2011 LILADINA CHAUDHRY, BRYAN V70.0 GENERAL MEDICAL EXAM, ROUTINE, AT HEALTH CARE FACILITY 02/26/2011 LILA CHAUDHRY BRYAN 244.9 UNSPECIFIED ACQUIRED HYPOTHYROIDISM 02/26/2011 LILA BOARD SAW RUNNER, BRYAN 250.00 DIABETES MELLITUS WITHOUT MENTION OF COMPLICATION TYPE II OR UNSPECIFIED TYPE NOT STATED UNCONTROLLED 02/26/2011 LILA BOARD SAW RUNNER, BRYAN 719.47 PAIN IN JOINT INVOLVING ANKLE AND FOOT 02/26/2011 LILA BOARD SAW RUNNER, BRYAN V70.0 GENERAL MEDICAL EXAM, ROUTINE, AT HEALTH CARE FACILITY 02/26/2011 ALVARO VYAS DO K 244.9 UNSPECIFIED ACQUIRED HYPOTHYROIDISM 02/26/2011 ALVARO VYAS DO K 250.00 DIABETES MELLITUS WITHOUT MENTION OF COMPLICATION TYPE II OR UNSPECIFIED TYPE NOT STATED UNCONTROLLED 02/26/2011 VYAS DO, ALVARO K 719.47 PAIN IN JOINT INVOLVING ANKLE AND FOOT 02/26/2011 ASAEL ALVARO CHAPMAN K V70.0 GENERAL MEDICAL EXAM, ROUTINE, AT HEALTH CARE FACILITY 02/26/2011 ASAEL ALVARO CHAPMAN K 244.9 UNSPECIFIED ACQUIRED HYPOTHYROIDISM 02/26/2011 ASAEL CHAPMANGEEA K 250.00 DIABETES MELLITUS WITHOUT MENTION OF COMPLICATION TYPE II OR UNSPECIFIED TYPE NOT STATED UNCONTROLLED 02/26/2011 VYAS ALVARO CHAPMAN K 719.47 PAIN IN JOINT INVOLVING ANKLE AND FOOT 02/26/2011 VYAS DO ALVARO K V70.0 GENERAL MEDICAL EXAM, ROUTINE, AT HEALTH CARE FACILITY 02/26/2011 LILA BOARD SAW RUNNER, BRYAN 244.9 UNSPECIFIED ACQUIRED HYPOTHYROIDISM 02/26/2011 LILA BOARD SAW RUNNER, BRYAN 250.00 DIABETES MELLITUS WITHOUT MENTION OF COMPLICATION TYPE II OR UNSPECIFIED TYPE NOT STATED UNCONTROLLED 02/26/2011 LILA BOARD SAW RUNNER, BRYAN 719.47 PAIN IN JOINT INVOLVING ANKLE AND FOOT 02/26/2011 LILA BOARD SAW RUNNER, BRYAN V70.0 GENERAL MEDICAL EXAM, ROUTINE, AT HEALTH CARE FACILITY 02/26/2011 LILA BOARD SAW RUNNER, BRYAN 244.9 UNSPECIFIED ACQUIRED HYPOTHYROIDISM 02/26/2011 LILA BOARD SAW RUNNER, BRYAN 250.00 DIABETES MELLITUS WITHOUT MENTION OF COMPLICATION TYPE II OR UNSPECIFIED TYPE NOT STATED UNCONTROLLED 02/26/2011 LILA BOARD SAW RUNNER, BRYAN 719.47 PAIN IN JOINT INVOLVING ANKLE AND FOOT 02/26/2011 LILA BOARD SAW RUNNER, BRYAN V70.0 GENERAL MEDICAL EXAM, ROUTINE, AT HEALTH CARE FACILITY 02/26/2011 LILA BOARD SAW RUNNER, BRYAN 244.9 UNSPECIFIED ACQUIRED HYPOTHYROIDISM 02/26/2011 LILA BOARD SAW RUNNER, BRYAN 250.00 DIABETES MELLITUS WITHOUT MENTION OF COMPLICATION TYPE II OR UNSPECIFIED TYPE NOT STATED UNCONTROLLED 02/26/2011 LILA BOARD SAW RUNNER, BRYAN 719.47 PAIN IN JOINT INVOLVING ANKLE AND FOOT 02/26/2011 LILA BOARD SAW RUNNER, BRYAN V70.0 GENERAL MEDICAL EXAM, ROUTINE, AT HEALTH CARE FACILITY 02/26/2011 LILA BOARD SAW RUNNER, BRYAN 244.9 UNSPECIFIED ACQUIRED HYPOTHYROIDISM 02/26/2011 LILA BOARD SAW RUNNER, BRYAN 250.00 DIABETES MELLITUS WITHOUT MENTION OF COMPLICATION TYPE II OR UNSPECIFIED TYPE NOT STATED UNCONTROLLED 02/26/2011 LILA BOARD SAW RUNNER, BRYAN 719.47 PAIN IN JOINT INVOLVING ANKLE [...] BOSWELL V58.69 MEDICATION HIGH RISK 03/03/2011 FINLEY BOARD SAW RUNNER, AFUA BOSWELL V58.69 MEDICATION HIGH RISK 03/03/2011 FINLEY RICHA AFUA BOSWELL V58.69 MEDICATION HIGH RISK 03/03/2011 FINLEY BOARD SAW RUNNER, AFUA BOSWELL V58.69 MEDICATION HIGH RISK 03/03/2011 FINLEY RICHA AFUA BOSWELL V58.69 MEDICATION HIGH RISK 03/03/2011 FINLEY BOARD SAW RUNNER, AFUA BOSWELL V58.69 MEDICATION HIGH RISK 03/03/2011 FINLEY BOARD SAW RUNNERAFUA V58.69 MEDICATION HIGH RISK 03/03/2011 LILA BOARD SAW RUNNER, BRYAN V58.69 MEDICATION HIGH RISK 03/03/2011 ALVARO VYAS DO K V58.69 MEDICATION HIGH RISK 03/03/2011 LILA BOARD SAW RUNNER, BRYAN V58.69 MEDICATION HIGH RISK 03/03/2011 LILA BOARD SAW RUNNER, BRYAN V58.69 MEDICATION HIGH RISK 03/03/2011 LILA BOARD SAW RUNNER, BRYAN V58.69 MEDICATION HIGH RISK 03/03/2011 LILA BOARD SAW RUNNER, BRYAN V58.69 MEDICATION HIGH RISK 03/03/2011 ALVARO VYAS DO K V58.69 MEDICATION HIGH RISK 03/03/2011 LILA BOARD SAW RUNNER, BRYAN V58.69 MEDICATION HIGH RISK 03/03/2011 LILA BOARD SAW RUNNER, BRYAN V58.69 MEDICATION HIGH RISK 03/03/2011 LILA BOARD SAW RUNNER, BRYAN V58.69 MEDICATION HIGH RISK 03/03/2011 LILA BOARD SAW RUNNER, BRYAN V58.69 MEDICATION HIGH RISK 03/03/2011 LILA BOARD SAW RUNNER, BRYAN V58.69 MEDICATION HIGH RISK 03/03/2011 ASAEL CHAPMAN ALVARO K V58.69 MEDICATION HIGH RISK 03/03/2011 ASAEL CHAPMAN ALVARO K V58.69 MEDICATION HIGH RISK 03/03/2011 LILA BOARD SAW RUNNER, BRYAN V58.69 MEDICATION HIGH RISK 03/03/2011 LILA BOARD SAW RUNNER, BRYAN V58.69 MEDICATION HIGH RISK 03/03/2011 LILA BOARD SAW RUNNER, BRYAN V58.69 MEDICATION HIGH RISK 03/03/2011 LILA BOARD SAW RUNNER, BRYAN V58.69 MEDICATION HIGH RISK 03/03/2011 LILA BOARD SAW RUNNER, BRYAN V58.69 MEDICATION HIGH RISK 03/20/2011 Ot 780.59 SLEEP DISTURBANCES NEC 09/07/2011 Ot 784.0 HEADACHE 02/09/2012 Ot 250.00 DIAB [place] WO COMPL, TYPE II OR UNSPEC TY 02/09/2012 Ot 295.90 SCHIZOPHRENIA NOS-UNSPEC 02/09/2012 Ot 305.1 TOBACCO USE DISORDER 02/09/2012 Ot 311 DEPRESSIVE DISORDER NEC 02/09/2012 Ot 401.9 HYPERTENSION NOS 02/09/2012 Ot 962.3 POISON- INSULIN/ANTIDIAB 02/09/2012 Ot 963.0 POIS- ANTIALLRG/ANTIEMET 02/09/2012 Ot 965.4 POIS-AROM ANALGESICS NEC 02/09/2012 Ot 966.3 POIS- ANTICONVUL NEC/NOS 02/09/2012 Ot 969.00 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, UNSPECIFIED 02/09/2012 Ot 969.4 POIS- BENZODIAZEPINE SCOTT 02/09/2012 Ot E950.0 SUICIDE- ANALGESICS 02/09/2012 Ot 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 02/09/2012 Ot E950.4 SUICIDE-DRUG /MEDICIN NEC 02/09/2012 Ot V62.84 SUICIDAL IDEATION 11/08/2012 Ot 250.00 DIAB [place] WO COMPL, TYPE II OR UNSPEC TY 11/08/2012 Ot 599.0 URIN TRACT INFECTION NOS 11/08/2012 Ot 780.1 HALLUCINATIONS 11/08/2012 Ot 965.09 POISONING- OPIATES NEC 11/08/2012 Ot 969.4 POIS- BENZODIAZEPINE SCOTT 11/08/2012 Ot E950.0 SUICIDE- ANALGESICS 11/08/2012 Ot 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 11/08/2012 Ot V62.84 SUICIDAL IDEATION 01/19/2013 [...] BOSWELL 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 01/19/2013 FINLEYMONICO CHAUDHRY AFUA BOSWELL 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 01/19/2013 FINLEYMONICO CHAUDHRY AFUA BOSWELL 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 01/19/2013 LILA BOARD SAW RUNNER, BRYAN 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 01/19/2013 ALVARO VYAS DO 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 01/19/2013 LILA BOARD SAW RUNNER, BRYAN 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 01/19/2013 LILA BOARD SAW RUNNER, BRYAN 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 01/19/2013 LILA BOARD SAW RUNNER, BRYAN 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 01/19/2013 LILA BOARD SAW RUNNER, BRYAN 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 01/19/2013 ALVARO VYAS DO K 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 01/19/2013 LILA BOARD SAW RUNNER, BRYAN 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 01/19/2013 LILA BOARD SAW RUNNER, BRYAN 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 01/19/2013 LILA BOARD SAW RUNNER, BRYAN 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 01/19/2013 LILA BOARD SAW RUNNER, BRYAN 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 01/19/2013 LILA BOARD SAW RUNNER, BRYAN 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 01/19/2013 ALVARO VYAS DO K 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 01/19/2013 ALVARO VYAS DO K 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 01/19/2013 LILA BOARD SAW RUNNER, BRYAN 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 01/19/2013 LILA BOARD SAW RUNNER, BRYAN 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 01/19/2013 LILA BOARD SAW RUNNER, BRYAN 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 01/19/2013 LILA BOARD SAW RUNNER, BRYAN 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 01/19/2013 LILA BOARD SAW RUNNER, BRYAN 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 02/08/2013 Ot 250.00 DIAB [place] WO COMPL, TYPE II OR UNSPEC TY 02/08/2013 Ot 784.0 HEADACHE 02/08/2013 Ot V58.67 LONG-TERM ( 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 INSULIN 02/10/2013 Ot 244.9 HYPOTHYROIDISM NOS 02/10/2013 Ot 250.00 DIAB [place] WO COMPL, TYPE II OR UNSPEC TY 02/10/2013 Ot 295.90 SCHIZOPHRENIA NOS-UNSPEC 02/10/2013 Ot 300.00 ANXIETY STATE NOS 02/10/2013 Ot 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 02/10/2013 Ot 305.1 TOBACCO USE DISORDER 02/10/2013 Ot 530.81 ESOPHAGEAL REFLUX 02/10/2013 Ot 965.8 POIS-ANALGES/ ANTIPYR NEC 02/10/2013 Ot 968.0 POIS-SLP TEACHER MUSCLE DEPRESS 02/10/2013 Ot 969.3 POISON- ANTIPSYCHOTIC NEC 02/10/2013 Ot 969.4 POIS- BENZODIAZEPINE SCOTT 02/10/2013 Ot E849.0 ACCIDENT IN HOME 02/10/2013 Ot E950.0 SUICIDE- ANALGESICS 02/10/2013 Ot 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 02/10/2013 Ot E950.4 SUICIDE-DRUG /MEDICIN NEC 02/10/2013 Ot V58.67 LONG-TERM ( 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 INSULIN 05/18/2013 SERGIO GERARD Ot [...] FINLEY APRN 309.81 AN PTSD 07/18/2013 LILA BOARD SAW RUNNER, BRYAN 309.81 AN PTSD 07/18/2013 VYAS DO ALVARO K 309.81 AN PTSD 07/18/2013 LILA BOARD SAW RUNNER, BRYAN 309.81 AN PTSD 07/18/2013 LILA BOARD SAW RUNNER, BRYAN 309.81 AN PTSD 07/18/2013 LILA BOARD SAW RUNNER, BRYAN 309.81 AN PTSD 07/18/2013 LILA BOARD SAW RUNNER, BRYAN 309.81 AN PTSD 07/18/2013 VYAS GEE CHAPMANA K 309.81 AN PTSD 07/18/2013 LILA BOARD SAW RUNNER, BRYAN 309.81 AN PTSD 07/18/2013 LILA BOARD SAW RUNNER, BRYAN 309.81 AN PTSD 07/18/2013 LILA BOARD SAW RUNNER, BRYAN 309.81 AN PTSD 07/18/2013 LILA BOARD SAW RUNNER, BRYAN 309.81 AN PTSD 07/18/2013 LILA BOARD SAW RUNNER, BRYAN 309.81 AN PTSD 07/18/2013 VYAS GEE CHAPMANA K 309.81 AN PTSD 07/18/2013 GEE VYAS DOA K 309.81 AN PTSD 07/18/2013 LILA BOARD SAW RUNNER, BRYAN 309.81 AN PTSD 07/18/2013 LILA BOARD SAW RUNNER, BRYAN 309.81 AN PTSD 07/18/2013 LILA BOARD SAW RUNNER, BRYAN 309.81 AN PTSD 07/18/2013 LILA BOARD SAW RUNNER, BRYAN 309.81 AN PTSD 07/18/2013 LILA BOARD SAW RUNNER, BRYAN 309.81 AN PTSD 09/03/2013 AFUA FINLEY APRN 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 09/03/2013 FINLEY AFUA CHAUDHRY 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 09/03/2013 FINLEY BOARD SAW RUNNERAFUA BundyH 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 09/03/2013 FINLEY BOARD SAW RUNNERAFUA BundyH 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 09/03/2013 FINLEY AFUA CHAUDHRYH 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 09/03/2013 FINLEY BOARD SAW RUNNERAFUA BundyH 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 09/03/2013 LILA BOARD SAW RUNNER, BRYAN 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 09/03/2013 ALVARO VYAS DO K 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 09/03/2013 LILA BOARD SAW RUNNER, BRYAN 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 09/03/2013 LILA BOARD SAW RUNNER, BRYAN 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 09/03/2013 LILA BOARD SAW RUNNER, BRYAN 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 09/03/2013 LILA BOARD SAW RUNNER, BRYAN 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 09/03/2013 VYAS ALVARO K 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 09/03/2013 LILA BOARD SAW RUNNER, BRYAN 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 09/03/2013 LILA BOARD SAW RUNNER, BRYAN 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 09/03/2013LILA BOARD SAW RUNNER, BRYAN 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 09/03/2013LILA BOARD SAW RUNNER, BRYAN 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 09/03/2013 LILA BOARD SAW RUNNER, BRYAN 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 09/03/2013 ASAEL CHAPMAN ALVARO K 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 09/03/2013 VYAS , ALVARO K 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 09/03/2013 LILA BOARD SAW RUNNER, BRYAN 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 09/03/2013 LILA BOARD SAW RUNNER, BRYAN 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 09/03/2013LILA BOARD SAW RUNNER, BRYAN 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 09/03/2013LILA BOARD SAW RUNNER, BRYAN 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 09/03/2013 LILA BOARD SAW RUNNER, BRYAN 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 09/07/2013 DARRICK VERDUZCO MD Ot 250.00 DIAB [place] WO COMPL, TYPE II OR UNSPEC TY 09/07/2013 DARRICK VERDUZCO MD Ot 465.9 ACUTE URI NOS 09/07/2013 DARRICK VERDUZCO MD Ot 599.0 URIN TRACT INFECTION NOS 09/07/2013 DARRICK VERDUZCO MD Ot 784.0 HEADACHE 09/07/2013 DAX MD, DARRICK D Ot V58.67 LONG-TERM (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 INSULIN 09/07/2013 DAX GUERRA, DARRICK Fiore Ot V58.69 OTH MED,LT,CURRENT USE 09/25/2013 AFUA FINLEY APRN 300.3 AN OBCESS COMP DIS 09/25/2013 AFUA FINLEY APRN 300.3 AN OBCESS COMP DIS 09/25/2013 AFUA FINLEY APRN 300.3 AN OBCESS COMP DIS 09/25/2013 TUSHAR CHAUDHRY, AFUA BOSWELL 300.3 AN OBCESS COMP DIS 09/25/2013 TUSHAR CHAUDHRY, AFUA BOSWELL 300.3 AN OBCESS COMP DIS 09/25/2013 LILA BOARD SAW RUNNER, BRYAN 300.3 AN OBCESS COMP DIS 09/25/2013 VYAS DO, ALVARO K 300.3 AN OBCESS COMP DIS 09/25/2013 LILA BOARD SAW RUNNER, BRYAN 300.3 AN OBCESS COMP DIS 09/25/2013 LILA BOARD SAW RUNNER, BRYAN 300.3 AN OBCESS COMP DIS 09/25/2013 LILA BOARD SAW RUNNER, BRYAN 300.3 AN OBCESS COMP DIS 09/25/2013 LILA BOARD SAW RUNNER, BRYAN 300.3 AN OBCESS COMP DIS 09/25/2013 VYAS DO, ALVARO K 300.3 AN OBCESS COMP DIS 09/25/2013 LILA BOARD SAW RUNNER, BRYAN 300.3 AN OBCESS COMP DIS 09/25/2013 LILA BOARD SAW RUNNER, BRYAN 300.3 AN OBCESS COMP DIS 09/25/2013 LILA BOARD SAW RUNNER, BRYAN 300.3 AN OBCESS COMP DIS 09/25/2013 LILA BOARD SAW RUNNER, BRYAN 300.3 AN OBCESS COMP DIS 09/25/2013 LILA BOARD SAW RUNNER, BRYAN 300.3 AN OBCESS COMP DIS 09/25/2013 VYAS DO, ALVARO K 300.3 AN OBCESS COMP DIS 09/25/2013 VYAS DO, ALVARO K 300.3 AN OBCESS COMP DIS 09/25/2013 LILA BOARD SAW RUNNER, BRYAN 300.3 AN OBCESS COMP DIS 09/25/2013 LILA BOARD SAW RUNNER, BRYAN 300.3 AN OBCESS COMP DIS 09/25/2013 LILA BOARD SAW RUNNER, BRYAN 300.3 AN OBCESS COMP DIS 09/25/2013 LILA BOARD SAW RUNNER, BRYAN 300.3 AN OBCESS COMP DIS 09/25/2013 [...] UNSPECIFIED W/O INTRACT MGRN W/ 02/07/2014 JAZMINE GEURRA, OLGA R Ot 530.11 REFLUX ESOPHAGITIS 02/07/2014 JAZMINE GUERRA, OLGA R Ot 530.81 ESOPHAGEAL REFLUX 02/07/2014 JAZMINE GUERRA, OLGA R Ot 535.50 UNSP GASTRITIS GASTRODUODENITIS W/O ME 02/07/2014 JAZMINE GUERRA, OLGA R Ot 535.60 DUODENITIS, WITHOUT MENTION OF HEMORRHAG 02/07/2014 JAZMINE GUERRA, OLGA R Ot 553.3 DIAPHRAGMATIC HERNIA 02/07/2014 AJZMINE GUERRA, OLGA R Ot V15.81 HX OF PAST NONCOMPLIANCE 03/08/2014 AFUA FINLEY APRN 296.80 MO BIPOLAR NOS 03/08/2014 LILADINA CHAUDHRY, BRYAN 296.80 MO BIPOLAR NOS 03/08/2014 ALVARO VYAS DO 296.80 MO BIPOLAR NOS 03/08/2014 LILA BOARD SAW RUNNER, BRYAN 296.80 MO BIPOLAR NOS 03/08/2014 LILA BOARD SAW RUNNER, BRYAN 296.80 MO BIPOLAR NOS 03/08/2014 LILA BOARD SAW RUNNER, BRYAN 296.80 MO BIPOLAR NOS 03/08/2014 LILA BOARD SAW RUNNER, BRYAN 296.80 MO BIPOLAR NOS 03/08/2014 VYAS DO ALVARO K 296.80 MO BIPOLAR NOS 03/08/2014 LILA BOARD SAW RUNNER, BRYAN 296.80 MO BIPOLAR NOS 03/08/2014 LILA BOARD SAW RUNNER, BRYAN 296.80 MO BIPOLAR NOS 03/08/2014 LILA BOARD SAW RUNNER, BRYAN 296.80 MO BIPOLAR NOS 03/08/2014 LILA BOARD SAW RUNNER, BRYAN 296.80 MO BIPOLAR NOS 03/08/2014 LILA BOARD SAW RUNNER, BRYAN 296.80 MO BIPOLAR NOS 03/08/2014 VYAS DO, ALVARO K 296.80 MO BIPOLAR NOS 03/08/2014 VYAS DO, ALVARO K 296.80 MO BIPOLAR NOS 03/08/2014 LILA BOARD SAW RUNNER, BRYAN 296.80 MO BIPOLAR NOS 03/08/2014 LILA BOARD SAW RUNNER, BRYAN 296.80 MO BIPOLAR NOS 03/08/2014 LILA BOARD SAW RUNNER, BRYAN 296.80 MO BIPOLAR NOS 03/08/2014 LILA BOARD SAW RUNNER, BRYAN 296.80 MO BIPOLAR NOS 03/08/2014 LILA BOARD SAW RUNNER, BRYAN 296.80 MO BIPOLAR NOS 03/11/2014 FINLEY RICHA AFUA BOSWELL 296.80 MO BIPOLAR NOS 03/11/2014 FINLEY RICHA AFUA BOSWELL 300.02 AN GEN ANXIETY 03/11/2014 FINLEY RICAH AFUA BOSWELL 314.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 03/11/2014 LILA BOARD SAW RUNNER, BRYAN 296.80 MO BIPOLAR NOS 03/11/2014 LILA BOARD SAW RUNNER, BRYAN 300.02 AN GEN ANXIETY 03/11/2014 LILA BOARD SAW RUNNER, BRYAN 314.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 03/11/2014 VYAS GEE CHAPMANA K 296.80 MO BIPOLAR NOS 03/11/2014 VYAS DO ALVARO K 300.02 AN GEN ANXIETY 03/11/2014 VYAS DO ALVARO K 314.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 03/11/2014 LILA BOARD SAW RUNNER, BRYAN 296.80 MO BIPOLAR NOS 03/11/2014 LILA BOARD SAW RUNNER, BRYAN 300.02 AN GEN ANXIETY 03/11/2014 ILLA BOARD SAW RUNNER, BRYAN 314.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 03/11/2014 LILA BOARD SAW RUNNER, BRYAN 296.80 MO BIPOLAR NOS 03/11/2014 LILA BOARD SAW RUNNER, BRYAN 300.02 AN GEN ANXIETY 03/11/2014 LILA BOARD SAW RUNNER, BRYAN 314.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 03/11/2014 LILA BOARD SAW RUNNER, BRYAN 296.80 MO BIPOLAR NOS 03/11/2014 LILA BOARD SAW RUNNER, BRYAN 300.02 AN GEN ANXIETY 03/11/2014 LILA BOARD SAW RUNNER, BRYAN 314.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 03/11/2014 LILA BOARD SAW RUNNER, BRYAN 296.80 MO BIPOLAR NOS 03/11/2014 LILA BOARD SAW RUNNER, BRYAN 300.02 AN GEN ANXIETY 03/11/2014 LILA BOARD SAW RUNNER, BRYAN 314.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 03/11/2014 GEE VYAS DOA K 296.80 MO BIPOLAR NOS 03/11/2014 VYAS GEE CHAPMANA K 300.02 AN GEN ANXIETY 03/11/2014 VYAS GEE CHAPMANA K 314.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 03/11/2014 LILA BOARD SAW RUNNER, BRYAN 296.80 MO BIPOLAR NOS 03/11/2014 LILA BOARD SAW RUNNER, BRYAN 300.02 AN GEN ANXIETY 03/11/2014 LILA BOARD SAW RUNNER, BRYAN 314.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 03/11/2014 LILA BOARD SAW RUNNER, BRYAN 296.80 MO BIPOLAR NOS 03/11/2014 LILA BOARD SAW RUNNER, BRYAN 300.02 AN GEN ANXIETY 03/11/2014 LILA BOARD SAW RUNNER, BRYAN 314.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 03/11/2014 LILA BOARD SAW RUNNER, BRYAN 296.80 MO BIPOLAR NOS 03/11/2014 LILA BOARD SAW RUNNER, BRYAN 300.02 AN GEN ANXIETY 03/11/2014 LILA BOARD SAW RUNNER, BRYAN 314.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 03/11/2014 LILA BOARD SAW RUNNER, BRYAN 296.80 MO BIPOLAR NOS 03/11/2014 LILA BOARD SAW RUNNER, BRYAN 300.02 AN GEN ANXIETY 03/11/2014 LILA BOARD SAW RUNNER, BRYAN 314.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 03/11/2014 LILA BOARD SAW RUNNER, BRYAN 296.80 MO BIPOLAR NOS 03/11/2014 LILA BOARD SAW RUNNER, BRYAN 300.02 AN GEN ANXIETY 03/11/2014 LILA BOARD SAW RUNNER, BRYAN 314.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 03/11/2014 GEE VYAS DOA K 296.80 MO BIPOLAR NOS 03/11/2014 VYAS GEE CHAPMANA K 300.02 AN GEN ANXIETY 03/11/2014 VYAS GEE CHAPMANA K 314.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 03/11/2014 ALVARO VYAS DO K 296.80 MO BIPOLAR NOS 03/11/2014 ASAEL CHAPMAN ALVARO K 300.02 AN GEN ANXIETY 03/11/2014 ASAEL CHAPMAN ALVARO K 314.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 03/11/2014 LILA BOARD SAW RUNNER, BRYAN 296.80 MO BIPOLAR NOS 03/11/2014 LILA BOARD SAW RUNNER, BRYAN 300.02 AN GEN ANXIETY 03/11/2014 LILA BOARD SAW RUNNER, BRYAN 314.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 03/11/2014 LILA BOARD SAW RUNNER, BRYAN 296.80 MO BIPOLAR NOS 03/11/2014 LILA BOARD SAW RUNNER, BRYAN 300.02 AN GEN ANXIETY 03/11/2014 LILA BOARD SAW RUNNER, BRYAN 314.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 03/11/2014 LILA BOARD SAW RUNNER, BRYAN 296.80 MO BIPOLAR NOS 03/11/2014 LILA BOARD SAW RUNNER, BRYAN 300.02 AN GEN ANXIETY 03/11/2014 LILA BOARD SAW RUNNER, BRYAN 314.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 03/11/2014 LILA BOARD SAW RUNNER, BRYAN 296.80 MO BIPOLAR NOS 03/11/2014 LILA BOARD SAW RUNNER, BRYAN 300.02 AN GEN ANXIETY 03/11/2014 LILA BOARD SAW RUNNER, BRYAN 314.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 03/11/2014 LILA BOARD SAW RUNNER, BRYAN 296.80 MO BIPOLAR NOS 03/11/2014 LILA BOARD SAW RUNNER, BRYAN 300.02 AN GEN ANXIETY 03/11/2014 LILA BOARD SAW RUNNER, BRYAN 314.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 05/02/2014 ESAU BERRY DO Ot 250.00 DIAB [place] WO COMPL, TYPE II OR UNSPEC TY 05/02/2014 ESAU BERRY DO Ot 575.11 CHRONIC CHOLECYSTITIS 06/05/2014 LILA BOARD SAW RUNNER, BRYAN 295.11 P SCHIZO DISORG SUBCHRONIC 06/05/2014 LILA BOARD SAW RUNNER, BRYAN 295.11 P SCHIZO DISORG SUBCHRONIC 06/05/2014 LILA BOARD SAW RUNNER, BRYAN 295.11 P SCHIZO DISORG SUBCHRONIC 06/05/2014 LILA BOARD SAW RUNNER, BRYAN 295.11 P SCHIZO DISORG SUBCHRONIC 06/05/2014 LILA BOARD SAW RUNNER, BRYAN 295.11 P SCHIZO DISORG SUBCHRONIC 06/05/2014 ALVARO VYAS DO K 295.11 P SCHIZO DISORG SUBCHRONIC 06/05/2014 ALVARO VYAS DO 295.11 P SCHIZO DISORG SUBCHRONIC 06/05/2014 LILA BOARD SAW RUNNER, BRYAN 295.11 P SCHIZO DISORG SUBCHRONIC 06/05/2014 LILA BOARD SAW RUNNER, BRYAN 295.11 P SCHIZO DISORG SUBCHRONIC 06/05/2014 LILA BOARD SAW RUNNER, BRYAN 295.11 P SCHIZO DISORG SUBCHRONIC 06/05/2014 LILA BOARD SAW RUNNER, BRYAN 295.11 P SCHIZO DISORG SUBCHRONIC 06/05/2014 LILA BOARD SAW RUNNER, BRYAN 295.11 P SCHIZO DISORG SUBCHRONIC 06/19/2014 TANYA GONZALEZ BOARD SAW RUNNER Ot 784.0 HEADACHE 07/14/2014 DAX GUERRA, DARRICK Fiore Ot 346.90 MIGRAINE UNSPECIFIED W/O INTRACT MGRN W/ 09/18/2014 ADAIR LUCERO [employer] Ot 250.00 09/18/2014 ADAIR LUCERO [employer] Ot V58.67 10/07/2014 ADAIR LUCERO [employer] Ot 250.00 10/07/2014 ADAIR LUCERO [employer] Ot V58.67 12/06/2014 OLGA LUCERO MD R Ot 244.9 HYPOTHYROIDISM NOS 12/06/2014 OLGA LUCERO MD R Ot 250.00 DIAB [place] WO COMPL, TYPE II OR UNSPEC TY 12/06/2014 OLGA LUCERO MD R Ot 272.4 HYPERLIPIDEMIA NEC/NOS 12/06/2014 OLGA LUCERO MD R Ot 295.90 SCHIZOPHRENIA NOS-UNSPEC 12/06/2014 OLGA LUCERO MD R Ot 296.20 DEPRESS DISORDER-UNSPEC 12/06/2014 OLGA LUCERO MD R Ot 300.9 UNSPECIFIED NONPSYCHOTIC MENTAL DISORDER 12/06/2014 OLGA LUCERO MD R Ot 305.1 TOBACCO USE DISORDER 12/06/2014 OLGA LUCERO MD R Ot 530.81 ESOPHAGEAL REFLUX 12/06/2014 OLGA LUCERO MD R Ot 599.0 URIN TRACT INFECTION NOS 12/06/2014 OLGA LUCERO MD R Ot V06.1 [id number], COMBINED [ 12/06/2014 OLGA LUCERO MD R Ot V58.67 LONG-TERM (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 INSULIN 06/12/2015 GAURANG STANTON DO Ot 339.12 CHRONIC TENSION TYPE HEADACHE 06/12/2015 GAURANG STANTON DO Ot 784.0 HEADACHE 07/30/2015 JAZMINE GUERRA, OLGA R Ot 786.2 08/05/2015 JAZMINE GUERRA, OLGA R Ot 786.2 08/11/2015 JAZMINE GUERRA, OLGA R Ot R19.7 08/19/2015 ADAIR LUCERO [employer] Ot E11.9 09/01/2015 ADAIR LUCERO [employer] Ot E11.9 09/23/2015 JAZMINE GUERRA, OLGA R [...] 01/29/2016 Ot 250.00 01/29/2016 JAZMINE GUERRA, OLGA Reinoso Ot 787.02 01/29/2016 JAZMINE GUERRA, OLGA R Ot 789.03 01/29/2016 JAZMINE GUERRA, OLGA R Ot 789.04 01/29/2016 JAZMINE GUERRA, OLGA R Ot 571.8 01/29/2016 JAZMINE GUERRA, OLGA R Ot 592.0 01/29/2016 JAZMINE GUERRA, OLGA R Ot 719.7 01/29/2016 TUSHARAFUA [employer] Ot V58.69 01/29/2016 TUSHARAFUA [employer] Ot V58.83 01/29/2016 JAZMINE ADAIR Kya [employer] Ot 250.00 01/29/2016 JAZMINE ADAIR Boland [employer] Ot 244.9 01/29/2016 LIZZIE LUCEROAN Kya [employer] Ot 250.00 01/29/2016 JAZMINE GUERRA, OLGA R Ot 571.8 01/29/2016 JAZMINE GUERRA, OLGA R Ot 789.01 01/29/2016 JAZMINE GUERRA, OLGA R Ot 789.01 01/29/2016 JAZMINE GUERRA, OLGA R Ot 793.3 01/29/2016 [place] ESAU CHAPMAN Ot 575.11 01/29/2016 [facility] V72.63 01/29/2016 [facility] V74.8 01/29/2016 JAZMINE ADAIR Kya [employer] Ot 250.01 01/29/2016 JAZMINE ADAIR Kya [employer] Ot 250.00 01/29/2016 ADAIR LUCERO [employer] Ot V58.67 01/29/2016 JAZMINE GUERRA, OLGA R Ot 786.2 01/29/2016 ADAIR LUCERO [employer] Ot E11.9 01/29/2016 SUYAPA GUERRA, JEAN-CLAUDEAASAHRA Ot R19.4 01/29/2016 SUYAPA GUERRA, TREVIN Ot Z01.818 01/29/2016 JAZMINE GUERRA, OLGA R Ot 787.91 01/29/2016 JAZMINE GUERRA, OLGA R Ot R19.7 01/29/2016 JAZMINE GUERRA, OLGA R Ot E03.9 01/30/2016 JAZMINE GUERRA, OLGA R Ot E03.9 02/18/2016 JAZMINE GUERRA, OLGA R Ot E03.9 HYPOTHYROIDISM, UNSPECIFIED 03/03/2016 JAZMINE GUERRA, OLGA R Ot E03.9 HYPOTHYROIDISM, UNSPECIFIED 05/25/2016 ROMY GAURANG CHAPMAN Ot F17.210 NICOTINE DEPENDENCE, CIGARETTES, UNCOMPL 05/25/2016 ROMY KANG CHAPMANA K Ot M54.5 LOW BACK PAIN 05/25/2016 ROMY DOKANGA K Ot N39.0 URINARY TRACT INFECTION, SITE NOT SPECIF 05/25/2016 ROMY DOGAURANG K Ot S39.012A STRAIN OF MUSCLE, FASCIA AND TENDON OF L 05/25/2016 ROMY GAURANG CHAPMAN K Ot X58.XXXA EXPOSURE TO OTHER SPECIFIED FACTORS, INI 05/25/2016 GAURANG STANTON DO Ot Y92.[address] IN SINGLE-FAMILY (PRIVATE) PARISH 05/25/2016 GAURANG STANTON DO K Ot Y99.8 OTHER EXTERNAL CAUSE STATUS 05/26/2016 ROMY GAURANG CHAPMAN Ot F17.210 NICOTINE DEPENDENCE, CIGARETTES, UNCOMPL 05/26/2016 ROMY GAURANG CHAPMAN Ot M54.5 LOW BACK PAIN 05/26/2016 ROMY GAURANG CHAPMAN Ot N39.0 URINARY TRACT INFECTION, SITE NOT SPECIF 05/26/2016 ROMY GAURANG CHAPMAN K Ot S39.012A STRAIN OF MUSCLE, FASCIA AND TENDON OF L 05/26/2016 ROMY GAURANG CHAPMAN K Ot X58.XXXA EXPOSURE TO OTHER SPECIFIED FACTORS, INI 05/26/2016 GAURANG STANTON DO K Ot Y92.[address] IN SINGLE-FAMILY (PRIVATE) APRISH 05/26/2016 ROMY GAURANG K Ot Y99.8 OTHER EXTERNAL CAUSE STATUS 06/04/2016 Ot 729.5 PAIN IN LIMB 06/04/2016 Ot 959.7 LOWER LEG INJURY NOS 06/04/2016 Ot E000.8 OTHER EXTERNAL CAUSE STATUS 06/04/2016 Ot E849.0 ACCIDENT IN HOME 06/04/2016 Ot E888.9 FALL NOS 06/04/2016 Ot 250.00 DIAB [place] WO COMPL, TYPE II OR UNSPEC TY 06/04/2016 Ot 401.9 HYPERTENSION NOS 06/04/2016 Ot V58.69 OTH MED,LT, CURRENT USE 06/04/2016 Ot V58.83 ENCOUNTER FOR THERAPEUTIC DRUG MONITORIN 06/04/2016 Ot 250.00 DIAB [place] WO COMPL, TYPE II OR UNSPEC TY 06/04/2016 JAZMINE GUERRA, OLGA R Ot 787.02 NAUSEA ALONE 06/04/2016 OLGA LUCERO MD R Ot 789.03 ABDOMINAL PAIN, RIGHT LOWER QUADRANT 06/04/2016 OLGA LUCERO MD R Ot 789.04 ABDOMINAL PAIN, LEFT LOWER QUADRANT 06/04/2016 OLGA LCUERO MD R Ot 571.8 CHRONIC LIVER DIS NEC 06/04/2016 OLGA LUCERO MD R Ot 592.0 CALCULUS OF KIDNEY 06/04/2016 OLGA LUCERO MD R Ot 719.7 DIFFICULTY IN WALKING 06/04/2016 AFUA FINLEY [employer] Ot V58.69 OT MED,LT,CURRENT USE 06/04/2016 AFUA FINLEY [employer] Ot V58.83 ENCOUNTER FOR THERAPEUTIC DRUG MONITORIN 06/04/2016 ADAIR LUCERO [employer] Ot 250.00 DIAB [place] WO COMPL, TYPE II OR UNSPEC TY 06/04/2016 ADAIR LUCERO [employer] Ot 244.9 HYPOTHYROIDISM NOS 06/04/2016 ADAIR LUCERO [employer] Ot 250.00 DIAB [place] WO COMPL, TYPE II OR UNSPEC TY 06/04/2016 OLGA LUCERO MD R Ot 571.8 CHRONIC LIVER DIS NEC 06/04/2016 OLGA LUCERO MD R Ot 789.01 [...] Ot V74.8 SCREEN-BACTERIAL DIS NEC 06/04/2016 ADAIR LUCERO [employer] Ot 250.01 DIAB [place] WO COMPL, TYPE I [JUVENILE TYP 06/04/2016 ADAIR LUCERO [employer] Ot 250.00 DIAB [place] WO COMPL, TYPE II OR UNSPEC TY 06/04/2016 ADAIR LUCERO Ot V58.67 LONG-TERM (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 INSULIN 06/04/2016 JAZMINE GUERRA, OLGA R Ot 786.2 COUGH 06/04/2016 ADAIR LUCERO Ot E11.9 TYPE 2 DIABETES MELLITUS WITHOUT COMPLIC 06/04/2016 SUYAPA GUERRA, TREVIN Ot R19.4 CHANGE IN BOWEL HABIT 06/04/2016 SUYAPA GUERRA, TREVIN Ot Z01.818 ENCOUNTER FOR OTHER PREPROCEDURAL EXAMIN 06/04/2016 JAZMINE GUERRA OLGA R Ot 787.91 DIARRHEA 06/04/2016 OLGA LUCERO MD R Ot R19.7 DIARRHEA, UNSPECIFIED 06/04/2016 BRENDA LUCERO MDYD R Ot E03.9 HYPOTHYROIDISM, UNSPECIFIED 06/04/2016 OLGA LUCERO MD R Ot E03.9 HYPOTHYROIDISM, UNSPECIFIED 06/07/2016 OLGA LUCERO MD R Ot M25.551 PAIN IN RIGHT HIP 06/07/2016 JAZMINE GUERRA OLGA R Ot M47.894 OTHER SPONDYLOSIS, THORACIC REGION 06/07/2016 JAZMINE GUERRA OLGA R Ot 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, 06/07/2016 OLGA LUCERO MD R Ot M54.16 RADICULOPATHY, LUMBAR REGION 06/07/2016 JAZMINE GUERRA OLGA R Ot N83.20 UNSPECIFIED OVARIAN CYSTS 06/07/2016 JAZMINE GUERRA OLGA R Ot N88.8 OTHER SPECIFIED NONINFLAMMATORY DISORDER 06/08/2016 OLGA LUCERO MD R Ot M25.551 PAIN IN RIGHT HIP 06/08/2016 OLGA LUCERO MD R Ot M47.894 OTHER SPONDYLOSIS, THORACIC REGION 06/08/2016 OLGA LUCERO MD R Ot 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, 06/08/2016 OLGA LUCERO MD R Ot M54.16 RADICULOPATHY, LUMBAR REGION 06/08/2016 OLGA LUCERO MD R Ot N83.20 UNSPECIFIED OVARIAN CYSTS 06/08/2016 JAZMINE GUERRA OLGA R Ot N88.8 OTHER SPECIFIED NONINFLAMMATORY DISORDER 06/10/2016 OLGA LUCERO MD R Ot M25.551 PAIN IN RIGHT HIP 06/10/2016 JAZMINE GUERRA OLGA R Ot M47.894 OTHER SPONDYLOSIS, THORACIC REGION 06/10/2016 JAZMINE GUERRA OLGA R Ot 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, 06/10/2016 OLGA LUCERO MD R Ot M54.16 RADICULOPATHY, LUMBAR REGION 06/10/2016 OLGA LUCERO MD R Ot N83.20 UNSPECIFIED OVARIAN CYSTS 06/10/2016 JAZMINE GUERRA OLGA R Ot N88.8 OTHER SPECIFIED NONINFLAMMATORY DISORDER 06/25/2016 OLGA LUCERO MD R Ot M25.551 PAIN IN RIGHT HIP 06/25/2016 OLGA LUCERO MD R Ot M47.894 OTHER SPONDYLOSIS, THORACIC REGION 06/25/2016 OLGA LUCERO MD R Ot 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, 06/25/2016 OLGA LUCERO MD R Ot M54.16 RADICULOPATHY, LUMBAR REGION 06/25/2016 OLGA LUCERO MD R Ot N83.20 UNSPECIFIED OVARIAN CYSTS 06/25/2016 OLGA LUCERO MD R Ot N88.8 OTHER SPECIFIED NONINFLAMMATORY DISORDER 07/15/2016 OLGA LUCERO MD R Ot M25.551 PAIN IN RIGHT HIP 07/15/2016 JAZMINE GUERRA OLGA R Ot M47.894 OTHER SPONDYLOSIS, THORACIC REGION 07/15/2016 OLGA LUCERO MD R Ot 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, 07/15/2016 OLGA LUCERO MD R Ot M54.16 RADICULOPATHY, LUMBAR REGION 07/15/2016 OLGA LUCERO MD R Ot N83.20 UNSPECIFIED OVARIAN CYSTS 07/15/2016 OLGA LUCERO MD R Ot N88.8 OTHER SPECIFIED NONINFLAMMATORY DISORDER 09/23/2016 Ot 250.00 DIAB [place] WO COMPL, TYPE II OR UNSPEC TY 09/23/2016 Ot 401.9 HYPERTENSION NOS 09/23/2016 Ot V58.69 OTH MED,LT, CURRENT USE 09/23/2016 Ot V58.83 ENCOUNTER FOR THERAPEUTIC DRUG MONITORIN 09/23/2016 Ot 250.00 DIAB [place] WO COMPL, TYPE II OR UNSPEC TY 09/23/2016 JAZMINE GUERRA, OLGA R Ot 787.02 NAUSEA ALONE 09/23/2016 OLGA LUCERO MD R Ot 789.03 ABDOMINAL PAIN, RIGHT LOWER QUADRANT 09/23/2016 JAZMINE GUERRA, OLGA R Ot 789.04 ABDOMINAL PAIN, LEFT LOWER QUADRANT 09/23/2016 OLGA LUCERO MD R Ot 571.8 CHRONIC LIVER DIS NEC 09/23/2016 OLGA LUCERO MD R Ot 592.0 CALCULUS OF KIDNEY 09/23/2016 OLGA LUCERO MD R Ot 719.7 DIFFICULTY IN WALKING 09/23/2016 AFUA FINLEY [employer] Ot V58.69 OT MED,LT,CURRENT USE 09/23/2016 AFUA FINLEY Ot V58.83 ENCOUNTER FOR THERAPEUTIC DRUG MONITORIN 09/23/2016 ADAIR LUCERO [employer] Ot 250.00 DIAB [place] WO COMPL, TYPE II OR UNSPEC TY 09/23/2016 ADAIR LUCERO [employer] Ot 244.9 HYPOTHYROIDISM NOS 09/23/2016 ADAIR LUCERO [employer] Ot 250.00 DIAB [place] WO COMPL, TYPE II OR UNSPEC TY 09/23/2016 OLGA LUCERO MD R Ot 571.8 CHRONIC LIVER DIS NEC 09/23/2016 OLGA LUCERO MD R Ot 789.01 ABDOMINAL PAIN, RIGHT UPPER QUADRANT 09/23/2016 OLGA LUCERO MD R Ot 789.01 ABDOMINAL PAIN, RIGHT UPPER QUADRANT 09/23/2016 JAZMINE GUERRA, OLGA R Ot 793.3 NOSP (ABN) FINDINGS ON RADIOLOGICAL OT 09/23/2016 ESAU BERRY DO Ot 575.11 CHRONIC CHOLECYSTITIS 09/23/2016 ESAU BERRY DO Ot V72.63 PRE-PROCEDURAL LABORATORY EXAMINATION 09/23/2016 ESAU BERRY DO Ot V74.8 SCREEN-BACTERIAL DIS NEC 09/23/2016 ADAIR LUCEROP Ot 250.01 DIAB [place] WO COMPL, TYPE I [JUVENILE TYP 09/23/2016 ADAIR LUCERO [employer] Ot 250.00 DIAB [place] WO COMPL, TYPE II OR UNSPEC TY 09/23/2016 ADAIR LUCEROP Ot V58.67 LONG-TERM (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 INSULIN 09/23/2016 JAZMINE GUERRA OLGA R Ot 786.2 COUGH 09/23/2016 ADAIR [...] M25.551 PAIN IN RIGHT HIP 09/23/2016 JAZMINE GUERRA, OLGA R Ot M47.894 OTHER SPONDYLOSIS, THORACIC REGION 09/23/2016 JAZMINE GUERRA, OLGA R Ot 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, 09/23/2016 JAZMINE GUERRA, OLGA R Ot M54.16 RADICULOPATHY, LUMBAR REGION 09/23/2016 JAZMINE GUERRA, OLGA R Ot N83.20 UNSPECIFIED OVARIAN CYSTS 09/23/2016 JAZMINE GUERRA, OLGA R Ot N88.8 OTHER SPECIFIED NONINFLAMMATORY DISORDER 09/23/2016 ADAIR LUCEROP Ot E11.9 TYPE 2 DIABETES MELLITUS WITHOUT COMPLIC 09/23/2016 ADAIR LUCERO [employer] Ot Z79.4 REDUCER (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 INSULIN 09/24/2016 ADAIR LUCERO [employer] Ot E11.9 TYPE 2 DIABETES MELLITUS WITHOUT COMPLIC 09/24/2016 ADAIR LUCEROP Ot Z79.4 REDUCER (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 INSULIN 09/29/2016 ADAIR LUCERO [employer] Ot E11.9 TYPE 2 DIABETES MELLITUS WITHOUT COMPLIC 09/29/2016 ADAIR LUCEROP Ot Z79.4 REDUCER (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 INSULIN 10/21/2016 SEGLIE, ADAIR M [employer] Ot E11.9 TYPE 2 DIABETES MELLITUS WITHOUT COMPLIC 10/21/2016 ADAIR ULCERO [employer] Ot Z79.4 SENIOR CARE (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 INSULIN 10/26/2016 ADAIR LUCERO [employer] Ot E11.9 TYPE 2 DIABETES MELLITUS WITHOUT COMPLIC 10/26/2016 ADAIR LUCERO [employer] Ot Z79.4 SENIOR CARE (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 INSULIN 01/25/2017 FRANCISCO ALAN DO Ot E11.65 TYPE 2 DIABETES MELLITUS WITH HYPERGLYCE 01/25/2017 FRANCISCO ALAN DO Ot Z79.4 SENIOR CARE (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 INSULIN 01/25/2017 FRANCISCO ALAN DO Ot Z79.84 REDUCER (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 ORAL HYPOGLYC 01/25/2017 FRANCISCO ALAN DO Ot Z79.899 OTHER SENIOR CARE (CURRENT) DRUG THERAPY 01/26/2017 FRANCISCO ALAN DO Ot E11.65 TYPE 2 DIABETES MELLITUS WITH HYPERGLYCE 01/26/2017 FRANCISCO ALAN DO Ot Z79.4 REDUCER (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 INSULIN 01/26/2017 FRANCISCO ALAN DO Ot Z79.84 REDUCER (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 ORAL HYPOGLYC 01/26/2017 FRANCISCO ALAN DO Ot Z79.899 OTHER REDUCER (CURRENT) DRUG THERAPY 03/24/2017 Ot 250.00 DIAB [place] WO COMPL, TYPE II OR UNSPEC TY 03/24/2017 Ot 784.0 HEADACHE 03/24/2017 Ot V58.67 LONG-TERM ( 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 INSULIN 05/03/2017 JESUS GUERRA, JOHN Greenberg Ot E03.9 HYPOTHYROIDISM, UNSPECIFIED 05/03/2017 JESUS GUERRA, JOHN Greenberg Ot E11.9 TYPE 2 DIABETES MELLITUS WITHOUT COMPLIC 05/03/2017 JESUS GUERRA, JOHN Greenberg Ot F17.210 NICOTINE DEPENDENCE, CIGARETTES, UNCOMPL 05/03/2017 JOHN LEE MD Ot F20.9 SCHIZOPHRENIA, UNSPECIFIED 05/03/2017 JOHN LEE MD Ot F32.9 MAJOR DEPRESSIVE DISORDER, SINGLE EPISOD 05/03/2017 JOHN LEE MD Ot F41.9 ANXIETY DISORDER, UNSPECIFIED 05/03/2017 JOHN LEE MD Ot F60.9 PERSONALITY DISORDER, UNSPECIFIED 05/03/2017 JOHN LEE MD Ot F90.9 ATTENTION-DEFICIT HYPERACTIVITY DISORDER 05/03/2017 JOHN LEE MD Ot G43.909 MIGRAINE, UNSP, NOT INTRACTABLE, WITHOUT 05/03/2017 JOHN LEE MD Ot H20.9 UNSPECIFIED IRIDOCYCLITIS 05/03/2017 JONH LEE MD Ot H57.11 OCULAR PAIN, RIGHT EYE 05/03/2017 JOHN LEE MD Ot K21.9 GASTRO-ESOPHAGEAL REFLUX DISEASE WITHOUT 05/03/2017 JOHN LEE MD Ot Z79.4 REDUCER (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 INSULIN 05/03/2017 JOHN LEE MD Ot Z79.84 SENIOR CARE (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 ORAL HYPOGLYC 05/03/2017 JOHN LEE MD Ot Z90.49 ACQUIRED ABSENCE OF OTHER SPECIFIED PART 05/03/2017 JOHN LEE MD Ot Z91.5 PERSONAL HISTORY OF SELF-HARM 05/03/2017 JOHN LEE MD Ot E03.9 HYPOTHYROIDISM, UNSPECIFIED 05/03/2017 JOHN LEE MD Ot E11.9 TYPE 2 DIABETES MELLITUS WITHOUT COMPLIC 05/03/2017 JOHN LEE MD Ot F17.210 NICOTINE DEPENDENCE, CIGARETTES, UNCOMPL 05/03/2017 JOHN LEE MD Ot F20.9 SCHIZOPHRENIA, UNSPECIFIED 05/03/2017 JOHN LEE MD Ot F32.9 MAJOR DEPRESSIVE DISORDER, SINGLE EPISOD 05/03/2017 JOHN LEE MD Ot F41.9 ANXIETY DISORDER, UNSPECIFIED 05/03/2017 JOHN LEE MD Ot F60.9 PERSONALITY DISORDER, UNSPECIFIED 05/03/2017 JOHN LEE MD Ot F90.9 ATTENTION-DEFICIT HYPERACTIVITY DISORDER 05/03/2017 JOHN LEE MD Ot G43.909 MIGRAINE, UNSP, NOT INTRACTABLE, WITHOUT 05/03/2017 JOHN LEE MD Ot H20.9 UNSPECIFIED IRIDOCYCLITIS 05/03/2017 JOHN LEE MD, Ot H57.11 OCULAR PAIN, RIGHT EYE 05/03/2017 JOHN LEE MD, Ot K21.9 GASTRO-ESOPHAGEAL REFLUX DISEASE WITHOUT 05/03/2017 JOHN LEE MD Ot Z79.4 REDUCER (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 INSULIN 05/03/2017 JOHN LEE MD Ot Z79.84 REDUCER (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 ORAL HYPOGLYC 05/03/2017 JOHN LEE MD, Ot Z90.49 ACQUIRED ABSENCE OF OTHER SPECIFIED PART 05/03/2017 JOHN LEE MD, Ot Z91.5 PERSONAL HISTORY OF SELF-HARM 07/09/2017 IVORY DICKSON MD Ot B37.3 CANDIDIASIS OF VULVA AND VAGINA 07/09/2017 IVORY DICKSON MD Ot E03.9 HYPOTHYROIDISM, UNSPECIFIED 07/09/2017 IVORY DICKSON MD Ot E11.649 TYPE 2 DIABETES MELLITUS WITH HYPOGLYCEM 07/09/2017 IVORY DICKSON MD Ot E78.00 PURE HYPERCHOLESTEROLEMIA, UNSPECIFIED 07/09/2017 IVORY DICKSON MD Ot F17.210 NICOTINE DEPENDENCE, CIGARETTES, UNCOMPL 07/09/2017 IVORY DICKSON MD Ot F20.9 SCHIZOPHRENIA, UNSPECIFIED 07/09/2017 IVORY DICKSON MD Ot F32.9 MAJOR DEPRESSIVE DISORDER, SINGLE EPISOD 07/09/2017 IVORY DICKSON MD Ot F41.9 ANXIETY DISORDER, UNSPECIFIED 07/09/2017 IVORY DICKSON MD Ot F90.9 ATTENTION-DEFICIT HYPERACTIVITY DISORDER 07/09/2017 IVORY DICKSON MD Ot G43.909 MIGRAINE, UNSP, NOT INTRACTABLE, WITHOUT 07/09/2017 IVORY DICKSON MD Ot K21.9 GASTRO-ESOPHAGEAL REFLUX DISEASE WITHOUT 07/09/2017 IVORY DICKSON MD Ot N39.0 URINARY TRACT INFECTION, SITE NOT SPECIF 07/09/2017 IVORY DICKSON MD Ot R73.9 HYPERGLYCEMIA, UNSPECIFIED 07/09/2017 IVORY DICKSON MD Ot Z79.4 SENIOR CARE (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 INSULIN 07/09/2017 IVORY DICKSON MD Ot Z79.84 SENIOR CARE (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 ORAL HYPOGLYC 07/09/2017 IVORY DICKSON MD Ot Z82.49 FAMILY HX OF ISCHEM HEART DIS AND OTH DI 07/09/2017 IVORY DICKSON MD Ot Z90.49 ACQUIRED ABSENCE OF OTHER SPECIFIED PART 07/09/2017 IVORY DICKSON MD Ot Z91.5 PERSONAL HISTORY OF SELF-HARM 07/09/2017 Ot 250.00 DIAB [place] WO COMPL, TYPE II OR UNSPEC TY 07/09/2017 OLGA LUCERO MD R Ot 787.02 NAUSEA ALONE 07/09/2017 OLGA LUCERO MD R Ot 789.03 ABDOMINAL PAIN, RIGHT LOWER QUADRANT 07/09/2017 OLGA LUCERO MD Ot 789.04 ABDOMINAL PAIN, LEFT LOWER QUADRANT 07/09/2017 OLGA LUCERO MD Ot 571.8 CHRONIC LIVER DIS NEC 07/09/2017 OLGA LUCERO MD R Ot 592.0 CALCULUS OF KIDNEY 07/09/2017 OLGA LUCERO MD R Ot 719.7 DIFFICULTY IN WALKING 07/09/2017 AFUA FINLEY [employer] Ot V58.69 OTH MED,LT,CURRENT USE 07/09/2017 AFUA FINLEY [employer] Ot V58.83 ENCOUNTER FOR THERAPEUTIC DRUG MONITORIN 07/09/2017 ADAIR LUCERO [employer] Ot 250.00 DIAB [place] WO COMPL, TYPE II OR UNSPEC TY 07/09/2017 ADAIR LUCERO [employer] Ot 244.9 HYPOTHYROIDISM NOS 07/09/2017 ADAIR LUCERO [employer] Ot 250.00 DIAB [place] WO COMPL, TYPE II OR UNSPEC TY 07/09/2017 OLGA LUCERO MD R Ot 571.8 CHRONIC LIVER DIS NEC 07/09/2017 OLGA LUCERO MD R Ot 789.01 ABDOMINAL PAIN, RIGHT UPPER QUADRANT 07/09/2017 OLGA LUCERO MD Ot 789.01 ABDOMINAL PAIN, RIGHT UPPER QUADRANT 07/09/2017 OLGA LUCERO MD R Ot 793.3 NOSP (ABN) FINDINGS ON RADIOLOGICAL OT 07/09/2017 ESAU BERRY DO Ot 575.11 CHRONIC CHOLECYSTITIS 07/09/2017 ESAU BERRY DO Ot V72.63 PRE-PROCEDURAL LABORATORY EXAMINATION 07/09/2017 BERRYESAU WILDER DO Ot V74.8 SCREEN-BACTERIAL DIS NEC 07/09/2017 ADAIR LUCERO Ot 250.01 DIAB [place] WO COMPL, TYPE I [JUVENILE TYP 07/09/2017 ADAIR LUCERO Ot 250.00 DIAB [place] WO COMPL, TYPE II OR UNSPEC TY 07/09/2017 ADAIR LUCERO Ot V58.67 LONG-TERM (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 INSULIN 07/09/2017 OGLA LUCERO MD R Ot 786.2 COUGH 07/09/2017 ADAIR LUCERO Ot E11.9 TYPE 2 DIABETES MELLITUS WITHOUT COMPLIC 07/09/2017 TREVIN DALE MD Ot R19.4 CHANGE IN BOWEL HABIT 07/09/2017 TREVIN DALE MD Ot Z01.818 ENCOUNTER FOR OTHER PREPROCEDURAL EXAMIN 07/09/2017 OLGA LUCERO MD R Ot 787.91 DIARRHEA 07/09/2017 OLGA LUCERO MD R Ot R19.7 DIARRHEA, UNSPECIFIED 07/09/2017 OLGA LUCERO MD R Ot E03.9 HYPOTHYROIDISM, UNSPECIFIED 07/09/2017 OLGA LUCERO MD R Ot E03.9 HYPOTHYROIDISM, UNSPECIFIED 07/09/2017 BRENDA LUCERO MDYD R Ot M25.551 PAIN IN RIGHT HIP 07/09/2017 OLGA LUCERO MD R Ot M47.894 OTHER SPONDYLOSIS, THORACIC REGION 07/09/2017 OLGA LUCERO MD R Ot 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, 07/09/2017 OLGA LUCERO MD R Ot M54.16 RADICULOPATHY, LUMBAR REGION 07/09/2017 OLGA LUCERO MD R Ot N83.20 UNSPECIFIED OVARIAN CYSTS 07/09/2017 OLGA LUCERO MD R Ot N88.8 OTHER SPECIFIED NONINFLAMMATORY DISORDER 07/09/2017 ADAIR LUCERO Ot E11.9 TYPE 2 DIABETES MELLITUS WITHOUT COMPLIC 07/09/2017 ADAIR LUCERO Ot Z79.4 SENIOR CARE (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 INSULIN 07/11/2017 IVORY DICKSON MD Ot B37.3 CANDIDIASIS OF VULVA AND VAGINA 07/11/2017 IVORY DICKSON MD Ot E03.9 HYPOTHYROIDISM, UNSPECIFIED 07/11/2017 IVORY DICKSON MD Ot E11.649 TYPE 2 DIABETES MELLITUS WITH HYPOGLYCEM 07/11/2017 IVORY DICKSON MD Ot E78.00 PURE HYPERCHOLESTEROLEMIA, UNSPECIFIED 07/11/2017 IVORY DICKSON MD Ot F17.210 NICOTINE DEPENDENCE, CIGARETTES, UNCOMPL 07/11/2017 IVORY DICKSON MD Ot F20.9 SCHIZOPHRENIA, UNSPECIFIED 07/11/2017 IVORY DICKSON MD Ot F32.9 MAJOR DEPRESSIVE DISORDER, SINGLE EPISOD 07/11/2017 IVORY DICKSON MD Ot F41.9 ANXIETY DISORDER, UNSPECIFIED 07/11/2017 IVORY DICKSON MD Ot F90.9 ATTENTION-DEFICIT HYPERACTIVITY DISORDER 07/11/2017 IVORY DICKSON MD Ot G43.909 MIGRAINE, UNSP, NOT INTRACTABLE, WITHOUT 07/11/2017 IVORY DICKSON MD Ot K21.9 GASTRO-ESOPHAGEAL REFLUX DISEASE WITHOUT 07/11/2017 IVORY DICKSON MD Ot N39.0 URINARY TRACT INFECTION, SITE NOT SPECIF 07/11/2017 IVORY DICKSON MD Ot R73.9 HYPERGLYCEMIA, UNSPECIFIED 07/11/2017 IVORY DICKSON MD Ot Z79.4 SENIOR CARE (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 INSULIN 07/11/2017 IVORY DICKSON MD Ot Z79.84 REDUCER (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 ORAL HYPOGLYC 07/11/2017 IVORY DICKSON MD Ot Z82.49 FAMILY HX OF ISCHEM HEART DIS AND OTH DI 07/11/2017 IVORY DICKSON MD Ot Z90.49 ACQUIRED ABSENCE OF OTHER SPECIFIED PART 07/11/2017 IVORY DICKSON MD Ot Z91.5 PERSONAL HISTORY OF SELF-HARM 07/29/2017 IVORY DICKSON MD Ot E03.9 HYPOTHYROIDISM, UNSPECIFIED 07/29/2017 IVORY DICKSON MD Ot E11.9 TYPE 2 DIABETES MELLITUS WITHOUT COMPLIC 07/29/2017 IVORY DICKSON MD Ot F17.210 NICOTINE DEPENDENCE, CIGARETTES, UNCOMPL 07/29/2017 YESSI MD, IVORY J Ot F20.9 SCHIZOPHRENIA, UNSPECIFIED 07/29/2017 IVORY DICKSON MD Ot F32.9 MAJOR DEPRESSIVE DISORDER, SINGLE EPISOD 07/29/2017 IVORY DICKSON MD Ot F41.9 ANXIETY DISORDER, UNSPECIFIED 07/29/2017 IVORY DICKSON MD Ot F90.9 ATTENTION-DEFICIT HYPERACTIVITY DISORDER 07/29/2017 IVORY DICKSON MD Ot G43.909 MIGRAINE, UNSP, NOT INTRACTABLE, WITHOUT 07/29/2017 IVORY DICKSON MD Ot 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, BOTH EYES 07/29/2017 IVORY DICKSON MD Ot K21.9 GASTRO-ESOPHAGEAL REFLUX DISEASE WITHOUT 07/29/2017 IVORY DICKSON MD Ot M54.5 LOW BACK PAIN 07/29/2017 IVORY DICKSON MD Ot Z79.4 REDUCER (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 INSULIN 07/29/2017 IVORY DICKSON MD Ot Z87.440 PERSONAL HISTORY OF URINARY (TRACT) INFE 07/29/2017 IVORY DICKSON MD Ot Z90.49 ACQUIRED ABSENCE OF OTHER SPECIFIED PART 07/29/2017 IVORY DICKSON MD Ot Z91.5 PERSONAL HISTORY OF SELF-HARM 08/12/2017 OLGA LUCERO MD Ot 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, UNSPEC 08/31/2017 OLGA LUCERO MD Ot 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, UNSPEC 09/09/2017 OLGA LUCERO MD Ot 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, UNSPEC 12/23/2017 Ot 250.00 DIAB [place] WO COMPL, TYPE II OR UNSPEC TY 12/23/2017 OLGA LUCERO MD R Ot 787.02 NAUSEA ALONE 12/23/2017 OLGA LUCERO MD Ot 789.03 ABDOMINAL PAIN, RIGHT LOWER QUADRANT 12/23/2017 OLGA LUCERO MD Ot 789.04 ABDOMINAL PAIN, LEFT LOWER QUADRANT 12/23/2017 OLGA LUCERO MD Ot 571.8 CHRONIC LIVER DIS NEC 12/23/2017 OLGA LUCERO MD Ot 592.0 CALCULUS OF KIDNEY 12/23/2017 OLGA LUCERO MD R Ot 719.7 DIFFICULTY IN WALKING 12/23/2017 AFUA FINLEY Ot V58.69 OTH MED,LT,CURRENT USE 12/23/2017 AFUA FINLEY [employer] Ot V58.83 ENCOUNTER FOR THERAPEUTIC DRUG MONITORIN 12/23/2017 ADAIR LUCERO Ot 250.00 DIAB [place] WO COMPL, TYPE II OR UNSPEC TY 12/23/2017 ADAIR LUCEROP Ot 244.9 HYPOTHYROIDISM NOS 12/23/2017 ADAIR LUCERO Ot 250.00 DIAB [place] WO COMPL, TYPE II OR UNSPEC TY 12/23/2017 OLGA LUCERO MD R Ot 571.8 CHRONIC LIVER DIS NEC 12/23/2017 OLGA LUCERO MD R Ot 789.01 ABDOMINAL PAIN, RIGHT UPPER QUADRANT 12/23/2017 OLGA LUCERO MD R Ot 789.01 ABDOMINAL PAIN, RIGHT UPPER QUADRANT 12/23/2017 JAZMINE GUERRA OLGA R Ot 793.3 NOSP (ABN) FINDINGS ON RADIOLOGICAL OT 12/23/2017 ESAU BERRY DO Ot 575.11 CHRONIC CHOLECYSTITIS 12/23/2017 ESAU BERRY DO Ot V72.63 PRE-PROCEDURAL LABORATORY EXAMINATION 12/23/2017 ESAU BERRY DO Ot V74.8 SCREEN-BACTERIAL DIS NEC 12/23/2017 ADAIR LUCERO [employer] Ot 250.01 DIAB [place] WO COMPL, TYPE I [JUVENILE TYP 12/23/2017 ADAIR LUCEROP Ot 250.00 DIAB [place] WO COMPL, TYPE II OR UNSPEC TY 12/23/2017 ADAIR LUCERO Ot V58.67 LONG-TERM (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 INSULIN 12/23/2017 OLGA LUCERO MD R Ot 786.2 COUGH 12/23/2017 ADAIR LUCERO Ot E11.9 TYPE 2 DIABETES MELLITUS WITHOUT COMPLIC 12/23/2017 SUYAPA GUERRA, TREVIN Ot R19.4 CHANGE IN BOWEL HABIT 12/23/2017 TREVIN DALE MD Ot Z01.818 ENCOUNTER FOR OTHER PREPROCEDURAL EXAMIN 12/23/2017 OLGA LUCERO MD R Ot 787.91 DIARRHEA 12/23/2017 OLGA LUCERO MD R Ot R19.7 DIARRHEA, UNSPECIFIED 12/23/2017 OLGA LUCERO MD R Ot E03.9 HYPOTHYROIDISM, UNSPECIFIED 12/23/2017 OLGA LUCERO MD R Ot E03.9 HYPOTHYROIDISM, UNSPECIFIED 12/23/2017 OLGA LUCERO MD R Ot M25.551 PAIN IN RIGHT HIP 12/23/2017 OLGA LUCERO MD R Ot M47.894 OTHER SPONDYLOSIS, THORACIC REGION 12/23/2017 OLGA LUCERO MD R Ot 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, 12/23/2017 OGLA LUCERO MD R Ot M54.16 RADICULOPATHY, LUMBAR REGION 12/23/2017 OLGA LUCERO MD Ot N83.20 UNSPECIFIED OVARIAN CYSTS 12/23/2017 OLGA LUCERO MD R Ot N88.8 OTHER SPECIFIED NONINFLAMMATORY DISORDER 12/23/2017 ADAIR LUCERO Ot E11.9 TYPE 2 DIABETES MELLITUS WITHOUT COMPLIC 12/23/2017 ADAIR LUCERO Ot Z79.4 SENIOR CARE (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 INSULIN 12/23/2017 OLGA LUCERO MD R Ot 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, UNSPEC 12/23/2017 TINY ALMENDAREZ APRN Ot E03.9 HYPOTHYROIDISM, UNSPECIFIED 12/23/2017 TINY ALMENDAREZ APRN Ot E10.9 TYPE 1 DIABETES MELLITUS WITHOUT COMPLIC Procedures Code Description [place] [address] THERAPUTIC INJ SQ/IM 12/13/2012 97089 THERAPUTIC INJ SQ/IM 01/16/2013 32821 THERAPUTIC INJ SQ/IM 01/16/2013 11801 PSYCH PHARM MGMT 01/26/2013 94846 THERAPUTIC INJ SQ/IM 02/09/2013 32039 THERAPUTIC INJ SQ/IM 03/12/2013 10898 THERAPUTIC INJ SQ/IM 03/12/2013 47144 THERAPUTIC INJ SQ/IM 04/10/2013 J1631 Haldol Decanoate 100 mg/mL Solution 04/11/2013 29734 THERAPUTIC INJ SQ/IM 06/12/2013 58809 THERAPUTIC INJ SQ/IM 07/18/2013 27062 CMP 11/27/2013 85937 LIPID PANEL 11/27/2013 38995 IMIPRAMINE 11/27/2013 31781 CBC 11/27/2013 84659 THERAPUTIC INJ SQ/IM 01/10/2014 45.16 ESOPHAGOGASTRODUODENOSCOPY [ EGD] W/CLOSE 02/07/2014 28668 THERAPUTIC INJ SQ/IM 02/08/2014 63064 THERAPUTIC INJ SQ/IM 04/05/2014 59349 THERAPUTIC INJ SQ/IM 05/07/2014 32903 THERAPUTIC INJ SQ/IM 06/05/2014 85682 THERAPUTIC INJ SQ/IM 06/05/2014 03979 IMMUNOTHERAPY, ONE INJECTION 07/01/2014 58608 THERAPUTIC INJ SQ/IM 07/09/2014 09778 THERAPUTIC INJ SQ/IM 08/07/2014 83921 THERAPUTIC INJ SQ/IM 09/06/2014 58656 THERAPUTIC INJ SQ/IM 10/10/2014 14532 THERAPUTIC INJ SQ/IM 11/07/2014 04953 THERAPUTIC INJ SQ/IM 01/15/2015 Results Test Result Range Complete urinalysis with reflex to culture - 05/25/16 22:45 Urine color determination RED NRG Urine clarity determination BLOODY NRG Urine pH measurement by test strip 8 5-9 Specific gravity of urine by test strip 1.015 1.016- 1.022 Urine protein assay by test strip, semi-quantitative [...] culture - 05/25/16 22:45 Bacterial urine culture [id number] NRG COLONY COUNT <10,000 NRG FTX;REPORTABLE SENSITIVITIES REPORTED AT 0742, 06-01-16 [facility] Bacterial susceptibility panel - 05/25/16 22:45 Gentamicin susceptibility test by minimum inhibitory concentration < = NRG Trimethoprim/sulfamethoxazole susceptibility test by minimum inhibitoryconcentration <= NRG Ampicillin susceptibility test by minimum inhibitory concentration < = NRG Tobramycin susceptibility test by minimum inhibitory concentration < = NRG Cefazolin susceptibility test by minimum inhibitory concentration < = NRG Ceftriaxone susceptibility test by minimum inhibitory concentration <= NRG Ampicillin/sulbactam susceptibility test by minimum inhibitory concentration <= NRG Piperacillin/tazobactam susceptibility test by minimum inhibitory concentration <= NRG Ciprofloxacin susceptibility test by minimum inhibitory concentration <= NRG Meropenem susceptibility test by minimum inhibitory concentration < = NRG Nitrofurantoin susceptibility test by minimum inhibitory concentration <= NRG Aztreonam susceptibility test by minimum inhibitory concentration < = NRG Extended spectrum beta lactamase (ESBL) producing bacteria susceptibility test by minimum inhibitory concentration - [facility] Bacterial susceptibility panel - 05/25/16 22:45 Gentamicin susceptibility test by minimum inhibitory concentration S NRG Vancomycin susceptibility test by minimum inhibitory concentration < = NRG Levofloxacin susceptibility test by minimum inhibitory concentration 2 NRG Tetracycline susceptibility test by minimum inhibitory concentration <= NRG Ampicillin susceptibility test by minimum inhibitory concentration < = NRG Nitrofurantoin susceptibility test by minimum inhibitory concentration 64 NRG Linezolid susceptibility test by minimum inhibitory concentration [address] [facility] Comprehensive metabolic panel - 09/23/16 14:56 Serum or plasma sodium measurement (moles/volume) 138 mmol/L 135-145 Serum or plasma potassium measurement (moles/volume) 3.7 mmol/L 3.6-5.0 Serum or plasma chloride measurement (moles/volume) 109 mmol/L 98-107 Carbon dioxide 20 mmol/L 21-32 Serum or plasma anion gap determination (moles/volume) 9 mmol/L 5-14 Serum or plasma urea nitrogen measurement (mass/volume) 12 mg/dL 7-18 Serum or plasma creatinine measurement (mass/volume) 0.79 mg/dL 0.60-1.30 Serum or plasma urea nitrogen/creatinine mass [...] Urine pH measurement by test strip 7 5-9 Specific gravity of urine by test strip 1.010 1.016- 1.022 Urine protein assay by test strip, semi-quantitative [...] 01:10 Blood leukocytes automated count (number/volume) 9.8 10*3/uL 4.3-11.0 Blood erythrocytes automated count (number/volume) 4.74 10*6/uL 4.35-5.85 Venous blood hemoglobin measurement (mass/volume) 13.7 [...] Automated blood platelet mean volume measurement 11.2 [foz_us] 7.4-10.4 Automated blood neutrophils/100 leukocytes 50 % [...] Serum or plasma sodium measurement (moles/volume) 135 mmol/L 135-145 Serum or plasma potassium measurement (moles/volume) 3.2 mmol/L 3.6-5.0 Serum or plasma chloride measurement (moles/volume) 102 mmol/L 98-107 Carbon dioxide 20 mmol/L 21-32 Serum or plasma anion gap determination (moles/volume) 13 mmol/L 5-14 Serum or plasma urea nitrogen measurement (mass/volume) 10 mg/dL 7-18 Serum or plasma creatinine measurement (mass/volume) 0.95 mg/dL 0.60-1.30 Serum or plasma urea nitrogen/creatinine mass [...] or plasma troponin i.cardiac measurement (mass/volume) < ng/ mL <0.30 THYROID STIMULATING HORMONE - 01/25/17 01:10 THYROID STIMULATING HORMONE 3.82 u[iU]/mL 0.35-4.94 Hemoglobin A1c - 01/25/17 01:10 Hemoglobin A1c 12.4 % 4.5-6.2 Capillary blood glucose measurement by glucometer (mass/volume) - 01/25/17 02: 24 Capillary blood glucose measurement by glucometer (mass/volume) 341 mg/dL 70-110 Capillary blood glucose measurement by glucometer (mass/volume) - 07/09/17 17: 26 Capillary blood glucose measurement by glucometer (mass/volume) 482 mg/dL 70-110 Urine beta human chorionic gonadotropin (hCG) measurement - 07/09/17 17:58 Urine beta human chorionic gonadotropin (hCG) measurement NEGATIVE NEGATIVE Complete urinalysis with reflex to culture - 07/09/17 17:58 Urine color determination YELLOW NRG Urine clarity determination CLEAR NRG Urine pH measurement by test strip 6.5 5-9 Specific gravity of urine by test strip 1.015 1.016- 1.022 Urine protein assay by test strip, semi-quantitative NEGATIVE NEGATIVE Urine glucose detection by automated test strip 4+ NEGATIVE Erythrocytes detection in urine sediment by light microscopy 1+ NEGATIVE Urine ketones detection by automated test strip NEGATIVE NEGATIVE Urine nitrite detection by test strip POSITIVE NEGATIVE Urine total bilirubin detection by test strip NEGATIVE NEGATIVE Urine urobilinogen measurement by automated test strip (mass/volume) NORMAL NORMAL Urine leukocyte esterase detection by dipstick NEGATIVE NEGATIVE Automated urine sediment erythrocyte count by microscopy (number/high power field) NONE NRG Automated urine sediment leukocyte count by microscopy (number/high power field ) RARE NRG Bacteria detection in urine sediment by light microscopy NEGATIVE NRG Squamous epithelial cells detection in urine sediment by light microscopy 5-10 NRG Crystals detection in urine sediment by light microscopy NONE NRG Casts detection in urine sediment by light microscopy NONE NRG Mucus detection in urine sediment by light microscopy NEGATIVE NRG Complete urinalysis with reflex to culture YES NRG Yeast detection in urine sediment by light microscopy FEW NRG Bacterial urine culture - 07/09/17 17:58 URINE CULTURE RESULTS <10,000/ML NRG Complete blood count (CBC) with automated white blood cell (WBC) differential - 07/09/17 18:12 Blood leukocytes automated count (number/volume) 9.6 10*3/uL 4.3-11.0 Blood erythrocytes automated count (number/volume) 4.70 10*6/uL 4.35-5.85 Venous blood hemoglobin measurement (mass/volume) 13.8 g/dL 11.5-16.0 Blood hematocrit (volume fraction) 39 % 35-52 Automated erythrocyte mean corpuscular volume 83 [foz_us] 80-99 Automated erythrocyte mean corpuscular hemoglobin (mass per erythrocyte) 29 pg 25-34 Automated erythrocyte mean corpuscular hemoglobin concentration measurement ( mass/volume) 35 g/dL 32-36 Automated erythrocyte distribution width ratio 13.2 % 10.0-14.5 Automated blood platelet count (count/volume) 216 10*3/uL 130-400 Automated blood platelet mean volume measurement 11.7 [foz_us] 7.4-10.4 Automated blood neutrophils/100 leukocytes 49 % 42-75 Automated blood lymphocytes/100 leukocytes 35 % 12-44 Blood monocytes/100 leukocytes 9 % 0-12 Automated blood eosinophils/100 leukocytes 7 % 0-10 Automated blood basophils/100 leukocytes 1 % 0-10 Blood neutrophils automated count (number/volume) 4.7 10*3 1.8-7.8 Blood lymphocytes automated count (number/volume) 3.4 10*3 1.0-4.0 Blood monocytes automated count (number/volume) 0.9 10*3 0.0-1.0 Automated eosinophil count 0.7 10*3/uL 0.0-0.3 Automated blood basophil count (count/volume) 0.1 10*3/uL 0.0-0.1 Comprehensive metabolic panel - 07/09/17 18:12 Serum or plasma sodium measurement (moles/volume) 133 mmol/L 135-145 Serum or plasma potassium measurement (moles/volume) 3.6 mmol/L 3.6-5.0 Serum or plasma chloride measurement (moles/volume) 102 mmol/L 98-107 Carbon dioxide 19 mmol/L 21-32 Serum or plasma anion gap determination (moles/volume) 12 mmol/L 5-14 Serum or plasma urea nitrogen measurement (mass/volume) 13 mg/dL 7-18 Serum or plasma creatinine measurement (mass/volume) 0.93 mg/dL 0.60-1.30 Serum or plasma urea nitrogen/creatinine mass ratio 14 NRG Serum or plasma creatinine measurement with calculation of estimated glomerular filtration rate > NRG Serum or plasma glucose measurement (mass/volume) 485 mg/dL 70-105 Serum or plasma calcium measurement (mass/volume) 9.0 mg/dL 8.5-10.1 Serum or plasma total bilirubin measurement (mass/volume) 0.2 mg/dL 0.1-1.0 Serum or plasma alkaline phosphatase measurement (enzymatic activity/volume) 131 U/L 40-136 Serum or plasma aspartate aminotransferase measurement (enzymatic activity/ volume) 21 U/L 5-34 Serum or plasma alanine aminotransferase measurement (enzymatic activity/volume ) 26 U/L 0-55 Serum or plasma protein measurement (mass/volume) 6.7 g/dL 6.4-8.2 Serum or plasma albumin measurement (mass/volume) 3.8 g/dL 3.2-4.5 Magnesium - 07/09/17 18:12 Magnesium 1.7 mg/dL 1.8-2.4 Complete urinalysis with reflex to culture - 07/29/17 01:24 Urine color determination RED NRG Urine clarity determination CLOUDY NRG Urine pH measurement by test strip 6 5-9 Specific gravity of urine by test strip 1.020 1.016- 1.022 Urine protein assay by test strip, semi-quantitative [...] NORMAL Urine leukocyte esterase detection by dipstick 1+ NEGATIVE Automated urine sediment erythrocyte count by microscopy (number/high power field) TNTC NRG Automated urine sediment leukocyte count by microscopy (number/high power field ) [HPF] NRG Bacteria detection in urine sediment by light microscopy NEGATIVE NRG Squamous epithelial cells detection in urine sediment by light microscopy 0-2 NRG Crystals detection in urine sediment by light microscopy NONE NRG Casts detection in urine sediment by light microscopy NONE NRG Mucus detection in urine sediment by light microscopy NEGATIVE NRG Complete urinalysis with reflex to culture NO NRG Complete blood count (CBC) with automated white blood cell (WBC) differential - 12/23/17 10:40 Blood leukocytes automated count (number/volume) 11.8 10*3/uL 4.3-11.0 Blood erythrocytes automated count (number/volume) 5.07 10*6/uL 4.35-5.85 Venous blood hemoglobin measurement (mass/volume) 15.1 g/dL 11.5-16.0 Blood hematocrit (volume fraction) 43 % 35-52 Automated erythrocyte mean corpuscular volume 84 [foz_us] 80-99 Automated erythrocyte mean corpuscular hemoglobin (mass per erythrocyte) 30 pg 25-34 Automated erythrocyte mean corpuscular hemoglobin concentration measurement ( mass/volume) 35 g/dL 32-36 Automated erythrocyte distribution width ratio 13.5 % 10.0-14.5 Automated blood platelet count (count/volume) 247 10*3/uL 130-400 Automated blood platelet mean volume measurement 10.5 [foz_us] 7.4-10.4 Automated blood neutrophils/100 leukocytes 46 % 42-75 Automated blood lymphocytes/100 leukocytes 41 % 12-44 Blood monocytes/100 leukocytes 9 % 0-12 Automated blood eosinophils/100 leukocytes 3 % 0-10 Automated blood basophils/100 leukocytes 1 % 0-10 Blood neutrophils automated count (number/volume) 5.4 10*3 1.8-7.8 Blood lymphocytes automated count (number/volume) 4.9 10*3 1.0-4.0 Blood monocytes automated count (number/volume) 1.1 10*3 0.0-1.0 Automated eosinophil count 0.3 10*3/uL 0.0-0.3 Automated blood basophil count (count/volume) 0.1 10*3/uL 0.0-0.1 Comprehensive metabolic panel - 12/23/17 10:40 Serum or plasma sodium measurement (moles/volume) 143 mmol/L 135-145 Serum or plasma potassium measurement (moles/volume) 3.0 mmol/L 3.6-5.0 Serum or plasma chloride measurement (moles/volume) 109 mmol/L 98-107 Carbon dioxide 21 mmol/L 21-32 Serum or plasma anion gap determination (moles/volume) 13 mmol/L 5-14 Serum or plasma urea nitrogen measurement (mass/volume) 12 mg/dL 7-18 Serum or plasma creatinine measurement (mass/volume) 0.76 mg/dL 0.60-1.30 Serum or plasma urea nitrogen/creatinine mass ratio 16 NRG Serum or plasma creatinine measurement with calculation of estimated glomerular filtration rate > NRG Serum or plasma glucose measurement (mass/volume) 89 mg/dL 70-105 Serum or plasma calcium measurement (mass/volume) 9.0 mg/dL 8.5-10.1 Serum or plasma total bilirubin measurement (mass/volume) 0.2 mg/dL 0.1-1.0 Serum or plasma alkaline phosphatase measurement (enzymatic activity/volume) 97 U/L 40-136 Serum or plasma aspartate aminotransferase measurement (enzymatic activity/ volume) 18 U/L 5-34 Serum or plasma alanine aminotransferase measurement (enzymatic activity/volume ) 27 U/L 0-55 Serum or plasma protein measurement (mass/volume) 6.4 g/dL 6.4-8.2 Serum or plasma albumin measurement (mass/volume) 4.0 g/dL 3.2-4.5 THYROID STIMULATING HORMONE - 12/23/17 10:40 THYROID STIMULATING HORMONE 1.92 u[iU]/mL 0.35-4.94 Hemoglobin A1c - 12/23/17 10:40 Blood hemoglobin A1C measurement (mass/volume) 15.1 % 4.0 -5.6 MEAN BLOOD GLUCOSE 387 % <=126 Encounters ACCT No. Visit Date/Time Discharge Status Pt. Type Provider Facility Loc./Unit Complaint [id number] 02/19/2015 10:39:00 02/19/2015 23:59:59 [facility] BRYAN SHARP APRN [id number] 01/15/2015 15:46:00 01/15/2015 23:59:59 [facility] Outpatient BRYAN SHARP APRN [id number] 12/31/2014 09:36:00 12/31/2014 23:59:59 CLS Outpatient BRYAN SHARP APRN [id number] 11/21/2014 14:43:00 11/21/2014 23:59:59 JEREMY Outpatient BRYAN SHARP APRN [id number] 11/07/2014 15:40:00 11/07/2014 23:59:59 CLS Outpatient BRYAN SHARP APRN [id number] 10/09/2014 15:00:00 10/09/2014 23:59:59 JEREMY Outpatient ALVARO VYAS DO [id number] 09/06/2014 15:25:00 09/06/2014 23:59:59 JEREMY Outpatient ALVARO VYAS DO [id number] 08/16/2014 15:48:00 08/16/2014 23:59:59 JEREMY Outpatient BRYAN SHARP APRN [id number] 08/07/2014 14:18:00 08/07/2014 23:59:59 JEREMY Outpatient BRYAN SHARP APRN [id number] 07/19/2014 09:53:00 07/19/2014 23:59:59 JEREMY Outpatient BRYAN SHARP APRN [id number] 07/09/2014 15:39:00 07/09/2014 23:59:59 CLS Outpatient LILA BOARD SAW RUNNERBRYAN [id number] 06/18/2014 16:04:00 06/18/2014 23:59:59 CLS Outpatient LILA BOARD SAW RUNNERBRYAN [id number] 06/05/2014 15:45:00 06/05/2014 23:59:59 CLS Outpatient ALVARO VYAS DO [id number] 05/16/2014 16:35:00 05/16/2014 23:59:59 CLS Outpatient LILA BOARD SAW RUNNERBRYAN [id number] 05/07/2014 11:39:00 05/07/2014 23:59:59 CLS Outpatient LILA BOARD SAW RUNNER, BRYAN [id number] 04/18/2014 14:58:00 04/18/2014 23:59:59 CLS Outpatient LILA BOARD SAW RUNNER, BRYAN [id number] 04/05/2014 10:34:00 04/05/2014 23:59:59 CLS Outpatient ALVARO VYAS DO [id number] 2014 14:23:00 2014 23:59:59 CLS Outpatient LILA BOARD SAW RUNNERBRYAN [id number] 2014 14:23:00 2014 23:59:59 CLS Outpatient LILA BOARD SAW RUNNERBRYAN [id number] 03/11/2014 12:20:00 03/11/2014 23:59:59 CLS Outpatient FINLEY BOARD SAW RUNNERAFUA [id number] 02/08/2014 08:25:00 02/08/2014 23:59:59 CLS Outpatient FINLEY BOARD SAW RUNNERAFUA [id number] 01/10/2014 10:55:00 01/10/2014 23:59:59 CLS Outpatient FINLEY BOARD SAW RUNNERAFUA [id number] 12/10/2013 17:22:00 12/10/2013 23:59:59 CLS Outpatient FINLEY BOARD SAW RUNNERAFUA [id number] 09/25/2013 13:29:00 09/25/2013 23:59:59 CLS Outpatient FINLEY BOARD SAW RUNNERAFUA [id number] 09/03/2013 16:40:00 09/03/2013 23:59:59 CLS Outpatient FINLEY BOARD SAW RUNNERAFUA [id number] 08/20/2013 13:43:00 08/20/2013 23:59:59 CLS Outpatient FINLEY BOARD SAW RUNNERAFUA [id number] 07/18/2013 08:54:00 07/18/2013 23:59:59 CLS Outpatient FINLEY BOARD SAW RUNNERAFUA [id number] 07/12/2013 16:28:00 07/12/2013 23:59:59 CLS Outpatient FINLEY BOARD SAW RUNNERAFUA [id number] 01/19/2013 15:27:00 01/19/2013 23:59:59 CLS Outpatient AFUA FINLEY APRN [id number] 01/16/2013 13:38:00 01/16/2013 23:59:59 CLS Outpatient [id number] 12/29/2012 09:32:00 12/29/2012 23:59:59 CLS Outpatient TUSHAR BOARD SAW RUNNERAFUA [id number] 12/13/2012 14:41:00 12/13/2012 23:59:59 CLS Outpatient [id number] 11/20/2012 10:07:00 11/20/2012 23:59:59 CLS Outpatient AFUA FINLEY APRN [id number] 09/11/2012 09:21:00 09/11/2012 23:59:59 CLS Outpatient FINLEY BOARD SAW RUNNERAFUA [id number] 06/22/2013 15:42:00 Document Registration [id number] 06/15/2013 06:58:00 Document Registration [id number] 04/10/2013 10:26:00 Document Registration [id number] 03/12/2013 11:15:00 Document Registration [id number] 02/26/2013 13:42:00 Document Registration [id number] 02/09/2013 16:13:00 Document Registration [id number] 02/05/2013 07:59:00 Document Registration [id number] 12/23/2017 10:31:00 12/23/2017 23:59:59 CLS Outpatient TINY ALMENDAREZ BOARD SAW RUNNER [facility] LAB E03.9 [id number] 08/08/2017 17:48:00 08/08/2017 23:59:59 CLS Outpatient JAZMINE GUERRA, OLGA Reinoso [facility] RAD ELEVATED PROLACTIC LEVEL E22.9 [id number] 07/29/2017 01:06:00 07/29/2017 02:20:00 DIS Emergency YESSI GUERRA, IVORY Schwartz Via [facility] ER LOWER BACK PAIN [id number] 07/09/2017 17:13:00 07/09/2017 19:49:00 DIS Emergency YESSI GUERRA, IVORY Schwartz [facility] ER HIGH BLOOD SUGAR, HEADACHE [id number] 05/02/2017 23:40:00 05/03/2017 04:00:00 DIS Emergency JESUS GUERRA, JOHN Yari [facility] ER EYE PAIN,FEELS LIKE NEEDLES IN EYES [id number] 01/25/2017 00:51:00 01/25/2017 02:52:00 DIS Emergency WAQAS DO, FRANCISCO D [facility] ER HIGH BLOOD SUGAR 503 [id number] 09/23/2016 14:39:00 09/23/2016 23:59:59 CLS Outpatient ADAIR LUCERO [facility] LAB DIABETES,INSULIN DEPENDENT [id number] 06/04/2016 15:00:00 06/04/2016 23:59:59 CLS Outpatient OLGA LUCERO MD Via [facility] RAD LUMBAR PAIN,R HIP PAIN [id number] 05/25/2016 22:15:00 05/25/2016 23:33:00 DIS Emergency ROMY GAURANG CHAPMAN K [facility] ER LOWER BACK PAIN [id number] 01/29/2016 11:47:00 01/29/2016 23:59:59 CLS Outpatient OLGA LUCERO MD [facility] LAB [id number] 11/17/2015 10:20:00 11/17/2015 23:59:59 CLS Outpatient OLGA LUCERO MD [facility] LAB HYPOTHYROID [id number] 11/12/2015 08:59:00 11/12/2015 12:00:00 DIS Outpatient TREVIN DALE MD Via [facility] CHANGE IN BOWEL HABIT [id number] 11/10/2015 05:36:00 11/10/2015 23:59:59 CLS Outpatient TREVIN DALE MD Via [facility] PREOP SCREENING [id number] 11/06/2015 00:09:00 11/06/2015 23:59:59 CLS Preadmit OLGA LUCERO MD Via [facility] LAB DIARRHEA [id number] 08/11/2015 06:00:00 11/05/2015 00:01:00 DIS Outpatient OLGA LUCERO MD Via [facility] LAB DIARRHEA [id number] 10/11/2015 09:54:00 10/11/2015 11:56:00 DIS Emergency DARRICK VERDUZCO MD Via [facility] ER MIGRAINE [id number] 07/28/2015 08:22:00 07/28/2015 23:59:59 CLS Outpatient ADAIR LUCERO [facility] LAB DM11 [id number] 07/08/2015 11:07:00 07/08/2015 23:59:59 CLS Outpatient OLGA LUCERO MD Via [facility] RAD PERSISTANT COUGH [id number] 06/12/2015 20:47:00 06/12/2015 23:13:00 DIS Emergency GAURANG STANTON DO Via [facility] ER BARAJAS [id number] 12/04/2014 18:15:00 12/06/2014 11:50:00 DIS Inpatient OLGA LUCERO MD Via [facility] 4TH SUICIDAL IDEATION; DEPRESSION;SCHIZOPHRENIA;UTI; [id number] 08/23/2014 08:56:00 08/23/2014 23:59:59 CLS Outpatient ADAIR LUCERO [facility] LAB DIABETES-INSULIN DEPENDANT [id number] 07/14/2014 02:29:00 07/14/2014 04:00:00 DIS Emergency DARRICK VERDUZCO MD Via [facility] ER MIGRAINE [id number] 06/19/2014 21:16:00 06/19/2014 22:49:00 DIS Emergency TANYA GONZALEZ APRN Via [facility] ER HEADACHE [id number] 05/23/2014 12:03:00 05/23/2014 23:59:59 CLS Outpatient ADAIR LUCERO [facility] LAB DIABETES [id number] 05/02/2014 06:12:00 05/02/2014 15:55:00 DIS Outpatient ESAU BERRY DO Via [facility] SDC CHRONIC CHOLECYSTITIS [id number] 04/30/2014 08:30:00 04/30/2014 23:59:59 CLS Outpatient ESAU BERRY DO Via [facility] PREOP CHRONIC CHOLECYSTITIS [id number] 04/09/2014 09:46:00 04/09/2014 23:59:59 CLS Outpatient OLGA LUCERO MD Via [facility] CARD RUQ PAIN [id number] 04/03/2014 11:17:00 04/03/2014 23:59:59 CLS Outpatient OLGA LUCERO MD Via [facility] RAD RUQ PAIN [id number] 02/28/2014 11:50:00 02/28/2014 23:59:59 CLS Outpatient ADAIR LUCERO [facility] LAB DIABETES [id number] 02/06/2014 15:47:00 02/07/2014 18:50:00 DIS Inpatient OLGA LUCERO MD Via [facility] 4TH HEMADEMESIS, TM [id number] 02/04/2014 23:07:00 02/05/2014 00:24:00 DIS Emergency MILLICENT BHATTI MD Via [facility] ER MIGRAINE [id number] 01/11/2014 10:23:00 01/11/2014 23:59:59 CLS Outpatient ADAIR LUCERO Via [facility] LAB DIABETES [id number] 11/27/2013 10:06:00 11/27/2013 23:59:59 CLS Outpatient AFUA FINLEY Via [facility] LAB MEDICATION-HIGH RISK [id number] 11/17/2013 11:06:00 11/17/2013 15:25:00 DIS Emergency GAURANG STANTON DO Via [facility] ER DEPRESSION SUICIDAL THOUGHTS [id number] 09/06/2013 21:08:00 09/07/2013 00:18:00 DIS Emergency DARRICK VERDUZCO MD Via [facility] ER ELEVATED BLOOD SUGAR [id number] 09/06/2013 13:55:00 09/06/2013 23:59:59 CLS Outpatient OLGA LUCERO MD Via [facility] RAD PAIN W/WALKING [id number] 08/07/2013 13:32:00 08/07/2013 23:59:59 CLS Outpatient OLGA LUCERO MD Via [facility] RAD L Q PAIN [id number] 08/06/2013 15:36:00 08/06/2013 23:59:59 CLS Outpatient OLGA LUCERO MD Via [facility] LAB L Q PAIN [id number] 05/18/2013 16:42:00 05/18/2013 22:49:00 DIS Emergency SERGIO GERARD [facility] ER SUICIDIAL IDEATION [id number] 12/27/2017 01:47:00 ACT Emergency ROMY CHAPMAN GAURANG Allen Via [facility] ER SEVERE ABD PAIN,DIZZY [id number] 01/29/2016 11:45:00 Document Registration [id number] 02/10/2013 06:25:00 Document Registration [id number] 02/08/2013 11:58:00 Document Registration [id number] 11/08/2012 13:41:00 Document Registration [id number] 08/02/2012 14:50:00 Document Registration [id number] 02/08/2012 22:00:00 Document Registration [id number] 12/27/2011 13:01:00 Document Registration [id number] 12/15/2011 12:51:00 Document Registration [id number] 09/07/2011 22:42:00 Document Registration [id number] 03/19/2011 20:21:00 Document Registration [id number] 02/11/2011 15:16:00 Document Registration [id number] 12/11/2010 13:19:00 Document Registration [id number] 12/10/2010 13:05:00 Document Registration [id number] 11/07/2010 21:58:00 Document Registration [id number] 11/01/2010 22:32:00 Document Registration
[2017-12-27 02:49] LABS: BILIRUBIN,URINE NEGATIVE (NEGATIVE); CLARITY,URINE SLIGHTLY CLOUDY; COLOR,URINE YELLOW; GLUCOSE, URINE (UA) 4+ (NEGATIVE); KETONES,URINE NEGATIVE (NEGATIVE); LEUKOCYTE ESTERASE ,URINE 1+ (NEGATIVE); NITRITE,URINE NEGATIVE (NEGATIVE); PH,URINE 7 (5-9); PROTEIN,URINE NEGATIVE (NEGATIVE); UROBILINOGEN,URINE NORMAL (NORMAL)
[2017-12-27 02:51] LABS: BASOPHILS # (AUTO) 0.1 10^3/uL (0.0-0.1); BASOPHILS % (AUTO) 1 % (0-10); EOSINOPHILS # (AUTO) 0.3 10^3/uL (0.0-0.3); EOSINOPHILS % (AUTO) 3 % (0-10); HEMATOCRIT 44 % (35-52); HEMOGLOBIN 15.4 G/DL (11.5-16.0); LYMPHOCYTES # (AUTO) 4.2 X 10^3 (1.0-4.0); LYMPHOCYTES % (AUTO) 42 % (12-44); MEAN CORPUSCULAR HEMOGLOBIN 30 PG (25-34); MEAN CORPUSCULAR HGB CONC 35 G/DL (32-36); MEAN CORPUSCULAR VOLUME 84 FL (80-99); MEAN PLATELET VOLUME 10.6 FL (7.4-10.4); MONOCYTES # (AUTO) 0.8 X 10^3 (0.0-1.0); MONOCYTES % (AUTO) 8 % (0-12); NEUTROPHILS # (AUTO) 4.6 X 10^3 (1.8-7.8); NEUTROPHILS % (AUTO) 46 % (42-75); PLATELET COUNT 205 10^3/uL (130-400); RED BLOOD COUNT 5.17 10^6/uL (4.35-5.85)
[2017-12-27 02:55] LABS: BACTERIA,URINE TRACE /HPF; SQUAMOUS EPITHELIAL CELL,UR 25-50 /HPF; WBC,URINE 0-2 /HPF
[2017-12-27 02:56] LABS: YEAST,URINE FEW /HPF
[2017-12-27 03:02] LABS: AMPHETAMINE SCREEN, URINE NEGATIVE (NEGATIVE); BARBITURATE SCREEN URINE NEGATIVE (NEGATIVE); BENZODIAZEPINES SCREEN URINE NEGATIVE (NEGATIVE); CANNABINOID SCREEN, URINE NEGATIVE (NEGATIVE); COCAINE SCREEN URINE NEGATIVE (NEGATIVE); METHADONE STAT NEGATIVE (NEGATIVE); METHAMPHETAMINE SCREEN URINE S NEGATIVE (NEGATIVE); OPIATE SCREEN URINE POSITIVE (NEGATIVE); OXYCODONE STAT NEGATIVE (NEGATIVE); PROPOXYPHENE STAT NEGATIVE (NEGATIVE); TRICYCLIC ANTIDEPRESSANTS SCRE NEGATIVE (NEGATIVE)
[2017-12-27 03:14] LABS: ALANINE AMINOTRANSFERASE 34 U/L (0-55); ALBUMIN 4.4 GM/DL (3.2-4.5); ALKALINE PHOSPHATASE 117 U/L (40-136); AMYLASE 44 U/L (25-125); BILIRUBIN,TOTAL 0.3 MG/DL (0.1-1.0); BUN/CREATININE RATIO 20; CALCIUM 9.6 MG/DL (8.5-10.1); CARBON DIOXIDE 22 MMOL/L (21-32); CHLORIDE 94 MMOL/L (98-107); CREATININE SERUM 0.99 MG/DL (0.60-1.30); GFR ESTIMATED > 60; LIPASE 50 U/L (8-78); POTASSIUM 4.4 MMOL/L (3.6-5.0); SODIUM 132 MMOL/L (135-145); TOTAL PROTEIN 7.5 GM/DL (6.4-8.2)
[2017-12-27 03:15] LABS: GLUCOSE 533 MG/DL (70-105)
[2017-12-27] MEDS ORDERED: NS IV 1000 ML 1,000 ML IV ONE (03:25)
[2017-12-27] MEDS ORDERED: inSUlin (REGULAR) HUMAN 1 UNIT/0.01 ML (CHARGE PER UNIT) IV ONE (03:30)
--- NOTE | 2017-12-27 03:32 | ED Abdominal Pain ---
General Chief Complaint: Abdominal/GI Problems Stated Complaint: SEVERE ABD PAIN,DIZZY Nursing Triage Note: Abd pain since 12/17, saw Dr Fisher at [facility] on yesterday for this abd pain. Pt reports Dr thought a hernia starting maybe. Pt is diabetic and drank OJ PROJECT BUYER. Slight nausea this evening. Sepsis Screen: No Definite Risk Source of Information: Patient History of Present Illness Date Seen by Provider: Dec 27, 2017 Time Seen by Provider: 02:20 Initial Comments PT ARRIVES VIA POV FROM HOME C/O UPPER ABDOMINAL PAIN SINCE 12/17/17 STATES PAIN COMES AND GOES PAIN IS WORSE WITH LAYING OR STANDING, BUT IS BETTER IF SHE LAYS ON HER STOMACH + NAUSEA, NO VOMITING HAS BEEN CONSTIPATED FOR OVER A WEEK ( NORMALLY HAS DIARRHEA ALL THE TIME) -- HAD NOT HAD A BM X 1 WEEK, TOOK MIRALAX ON Tuesday12/24/17 AND HAD BM-- DIARRHEA. HAS NOT HAD BM SINCE NO URINARY SYMPTOMS NO FEVER PT STATES SHE WAS SEEN BY DR. FISHER AT [facility] TODAY 12/26/17 FOR THIS PROBLEM AND WAS TOLD IT WAS PROBABLY A HERNIA, BUT NO TESTS OR REFERRALS MADE. NO RX'S GIVEN PT STATES SHE TOOK HYDROCODONE AT MIDNIGHT WITHOUT RELIEF PT IS DIABETIC, HAS NOT TAKEN HER MEDICATIONS TONIGHT OR CHECKED HER BLOOD SUGAR TODAY STATES SHE HAS BEEN "CRAVING" ORANGE JUICE TONIGHT AND DRANK SOME JUST PRIOR TO ARRIVAL ALSO DRANK GIN TONIGHT. STATES SHE RARELY DRINKS ALCOHOL. PCP: DR. LUCERO Allergies and Home Medications Allergies Coded Allergies: amoxicillin (Unverified Allergy, Severe, sob, rash, 11/01/10) Penicillins (Verified Adverse Reaction, Severe, RASH, 12/14/05) cefuroxime (Verified Adverse Reaction, Severe, RASH, 12/14/05) clarithromycin (Unverified Adverse Reaction, Mild, nausea and dizziness, ) Home Medications Cyclobenzaprine HCl 10 Mg Tablet, 10 MG PO Q8H PRN for SPASMS Prescribed by: IVORY DICKSON on 07/29/17 0215 Insulin Aspart 100 Unit/1 Ml Insuln.pen, 27 UNITS SQ TID, (Reported) Insulin Detemir 100 Unit/1 Ml Insuln.pen, 60 UNITS SC HS, (Reported) Levothyroxine Sodium 88 Mcg Tablet, 88 MCG PO DAILY, (Reported) Lorazepam 1 Mg Tab, 2 MG PO HS PRN for ANXIETY, (Reported) TAKES 2 (1MG) TABLETS Lorazepam 1 Mg Tab, 1 MG PO BID PRN for ANXIETY, (Reported) Metformin Hcl 1,000 Mg Tablet, 1,000 MG PO BID, (Reported) Nitrofurantoin Monohyd/M-Cryst 100 Mg Capsule, 1 TAB PO BID Prescribed by: IVORY DICKSON on 07/09/171913 Prednisone 20 Mg Tab, 20 MG PO BID Prescribed by: IVORY DICKSON on 07/29/17 021 Topiramate 100 Mg Tablet, 100 MG PO BID, (Reported) Patient Home Medication List Home Medication List Reviewed: Yes Review of Systems Constitutional: no symptoms reported EENTM: No Symptoms Reported Respiratory: No Symptoms Reported Cardiovascular: No Symptoms Reported Gastrointestinal: See HPI, Abdominal Pain, Constipated, Nausea, Denies Poor Appetite, Denies Poor Fluid Intake Genitourinary: No Symptoms Reported Musculoskeletal: no symptoms reported Skin: no symptoms reported Psychiatric/Neurological: No Symptoms Reported Endocrine: See HPI Hematologic/Lymphatic: No Symptoms Reported Past Skmovyi-Wvuiob-Nbuivq Hx Patient Social History Alcohol Use: Rarely Uses Recreational Drug Use: No Smoking Status: Current Everyday Smoker (1/2 PPD) Type Used: Cigarettes (1/2 PPD) 2nd Hand Smoke Exposure: Yes Recent Foreign Travel: No Contact w/Someone Who Travel: No Recent Infectious Disease Expo: No Recent Hopitalizations: No Immunizations Up To Date Tetanus Booster (TDap): Less than 5yrs Date of Pneumonia Vaccine: Oct 24, 2010 Date of Influenza Vaccine: Aug 30, 2015 Seasonal Allergies Seasonal Allergies: Yes Surgeries History of Surgeries: Yes (EGD, RIGHT HIP SURGERY CHILD FOR UNKNOWN REASON) Surgeries: Appendectomy, Eye Surgery, Gallbladder, Orthopedic Respiratory History of Respiratory Disorde: No Cardiovascular History of Cardiac Disorders: No Neurological History of Neurological Disord: Yes Neurological Disorders: Headaches /Migraines Reproductive System : No Last Menstrual Period: Dec 13, 2017 Hx Reproductive Disorders: No Sexually Transmitted Disease: No HIV/AIDS: No Female Reproductive Disorders: Denies Genitourinary History of Genitourinary Disor: Yes Genitourinary Disorders: UTI-Chronic Gastrointestinal History of Gastrointestinal Di: Yes Gastrointestinal Disorders: Gastroesophageal Reflux Musculoskeletal History of Musculoskeletal Dis: No Endocrine History of Endocrine Disorders: Yes (INSULIN + ORAL MEDICATIONS) Endocrine Disorders: Diabetes, Insulin dep, Hypothyroidsim HEENT History of HEENT Disorders: No Loss of Vision: Bilateral Hearing Impairment: Denies Cancer History of Cancer: No Psychosocial History of Psychiatric Problem: Yes (EXTENSIVE PSYCH ISSUES) Behavioral Health Disorders: ADD/ADHD, Anxiety, Suicide Attempts, Personality Disorder, Schizophrenia, Depression Integumentary History of Skin or Integumenta: No Blood Transfusions History of Blood Disorders: No Family Medical History Family Medial History: Family history: Allergy 03 MOTHER 09 BROTHER Family history: Arthritis 03 MOTHER Family history: Asthma 09 BROTHER 09 SISTER Family history: Cardiovascular disease 03 FATHER ("TAKES MEDICATION FOR HIS HEART") Family history: Diabetes mellitus 03 FATHER Family history: Hypertension 03 MOTHER Hypercholesterolemia 03 MOTHER Psychosocial problem 09 SISTER (DEPRESSION) Psychotic disorder 09 SISTER (ANXIETY) No Family History of: Abdominal aortic aneurysm Zenon's disease Alcoholism Aphasia Cancer Cancer of colon Cataract Chest pain Congenital heart disease Congestive heart failure Cystic fibrosis Dementia Dysphagia Family history: Alzheimer's disease Family history: Breast disease Family history: Coronary thrombosis Family history: Gastrointestinal disease Family history: Glaucoma Family history: Osteoporosis Family history: Thyroid disorder Headache Hearing loss Heart disease Hereditary disease History of - anemia History of - disorder History of - respiratory disease History of drug abuse Human immunodeficiency virus (HIV) seropositivity Infertile Kidney disease Malignant neoplasm of lung Myocardial infarction Parkinson's disease Prostate cancer Seizure disorder Stroke Tuberculosis Visual impairment Physical Exam Vital Signs VS - Last 72 Hours, by Label 12/27/17 01:57 Temp 97.2 Pulse 78 Resp 20 B/P (MAP) 139/92 (108) Pulse Ox 98 O2 Delivery Room Air Capillary Refill : Less Than 3 Seconds General Appearance: WD/WN, no apparent distress, other (MALODROUS) HEENT: PERRL/EOMI, other (EDENTULOUS) Neck: normal inspection Respiratory: normal breath sounds, no respiratory distress, no accessory muscle use Cardiovascular: regular rate, rhythm, no murmur Gastrointestinal: normal bowel sounds, soft, no organomegaly, no pulsatile mass , No distended, No guarding, No rebound, tenderness (MILD DIFFUSE UPPER ABDOMINAL TENDERNESS. 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 consultant II-XII nml as tested, no motor/sensory deficits, alert, normal mood/affect, oriented x 3 Skin: normal color, warm/dry Progress/Results/Core Measures Results/Orders Lab Results Laboratory Tests Test 12/27/17 02:33 12/27/17 02:38 12/27/17 02:40 12/27/17 03:38 Range/Units Urine Color YELLOW Urine Clarity SLIGHTLY CLOUDY Urine pH 7 5-9 Urine Specific [place] 1.030 H 1.016-1.022 Urine Protein NEGATIVE NEGATIVE Urine Glucose (UA) 4+ H NEGATIVE Urine Ketones NEGATIVE NEGATIVE Urine Nitrite NEGATIVE NEGATIVE Urine Bilirubin NEGATIVE NEGATIVE Urine Urobilinogen NORMAL NORMAL MG/DL Urine Leukocyte Esterase 1+ H NEGATIVE Urine RBC (Auto) NEGATIVE NEGATIVE Urine RBC NONE /HPF Urine WBC 0-2 /HPF Urine Squamous Epithelial Cells 25-50 H /HPF Urine Crystals NONE /LPF Urine Bacteria TRACE /HPF Urine Casts NONE /LPF Urine Mucus NEGATIVE /LPF Urine Yeast FEW H /HPF Urine Culture Indicated NO Urine Opiates Screen POSITIVE H NEGATIVE Urine Oxycodone Screen NEGATIVE NEGATIVE Urine Methadone Screen NEGATIVE NEGATIVE Urine Propoxyphene Screen NEGATIVE NEGATIVE Urine Barbiturates Screen NEGATIVE NEGATIVE Ur Tricyclic Antidepressants Screen NEGATIVE NEGATIVE Urine Phencyclidine Screen NEGATIVE NEGATIVE Urine Amphetamines Screen NEGATIVE NEGATIVE Urine Methamphetamines Screen NEGATIVE NEGATIVE Urine Benzodiazepines Screen NEGATIVE NEGATIVE Urine Cocaine Screen NEGATIVE NEGATIVE Urine Cannabinoids Screen NEGATIVE NEGATIVE Glucometer 496 *H 70-110 MG/DL White Blood Count 10.0 4.3-11.0 10^3/uL Red Blood Count 5.17 4.35-5.85 10^6/uL Hemoglobin 15.4 11.5-16.0 G/DL Hematocrit 44 35-52 % Mean Corpuscular Volume 84 80-99 FL Mean Corpuscular Hemoglobin 30 25-34 PG Mean Corpuscular Hemoglobin Concent 35 32-36 G/DL Red Cell Distribution Width 13.0 10.0-14.5 % Platelet Count 205 130-400 10^3/uL Mean Platelet Volume 10.6 H 7.4-10.4 FL Neutrophils (%) (Auto) 46 42-75 % Lymphocytes (%) (Auto) 42 12-44 % Monocytes (%) (Auto) 8 0-12 % Eosinophils (%) (Auto) 3 0-10 % Basophils (%) (Auto) 1 0-10 % Neutrophils # (Auto) 4.6 1.8-7.8 X 10^3 Lymphocytes # (Auto) 4.2 H 1.0-4.0 X 10^3 Monocytes # (Auto) 0.8 0.0-1.0 X 10^3 Eosinophils # (Auto) 0.3 0.0-0.3 10^3/uL Basophils # (Auto) 0.1 0.0-0.1 10^3/uL Sodium Level 132 L 135-145 MMOL/L Potassium Level 4.4 3.6-5.0 MMOL/L Chloride Level 94 L 98-107 MMOL/L Carbon Dioxide Level 22 21-32 MMOL/L Anion Gap 16 H 5-14 MMOL/L Blood Urea Nitrogen 20 H 7-18 MG/DL Creatinine 0.99 0.60-1.30 MG/DL Estimat Glomerular Filtration Rate > 60 BUN/Creatinine Ratio 20 Glucose Level 533 *H 70-105 MG/DL Calcium Level 9.6 8.5-10.1 MG/DL Total Bilirubin 0.3 0.1-1.0 MG/DL Aspartate Amino Transf (AST/SGOT) 21 5-34 U/L Alanine Aminotransferase (ALT/SGPT) 34 0-55 U/L Alkaline Phosphatase 117 40-136 U/L Total Protein 7.5 6.4-8.2 GM/DL Albumin 4.4 3.2-4.5 GM/DL Amylase Level 44 25-125 U/L Lipase 50 8-78 U/L Serum Alcohol < 10 <10 MG/DL Blood Gas Puncture Site L RAD Blood Gas Patient Temperature 97.2 Arterial Blood pH 7.40 7.37-7.43 Arterial Blood Partial Pressure CO2 40 35-45 MMHG Arterial Blood Partial Pressure O2 74 L 79-93 MMHG Arterial Blood HCO3 25 23-27 MMOL/L Arterial Blood Total CO2 26.1 21.0-31.0 MMOL/L Arterial Blood Oxygen Saturation 96 94-100 % Arterial Blood Base Excess 0.4 -2.5-2.5 MMOL/L Dexter Test YES-POS Blood Gas Ventilator Setting NO Blood Gas Inspired Oxygen RA Test 12/27/17 05:17 Range/Units Glucometer 299 H 70-110 MG/DL My Orders Orders - GAURANG STANTON DO Accucheck Stat ONCE (12/27/17 02:22) Saline Lock/Iv-Start (12/27/17 02:22) Urine Bedside (12/27/17 02:22) Alcohol (12/27/17 02:22) Amylase (12/27/17 02:22) Cbc With Automated Diff (12/27/17 02:22) Comprehensive Metabolic Panel (12/27/17 02:22) Drug Screen Stat (Urine) (12/27/17 02:22) Lipase (12/27/17 02:22) Ua Culture If Indicated (12/27/17 02:22) Ct Abdomen/Pelvis W (12/27/17 03:20) Arterial Blood Gas (12/27/17 03:25) Saline Lock/Iv-Start (12/27/17 03:25) Ns Iv 1000 Ml (Sodium Chloride 0.9%) (12/27/17 03:25) Insulin (Regular) Human (Humulin R (Per (12/27/17 03:30) Iohexol Injection (Omnipaque 350 Mg/Ml 1 (12/27/17 04:00) Ns (Ivpb) (Sodium Chloride 0.9%) (12/27/17 04:00) Pharmacy Communication (Pharmacy Communi (12/27/17 04:00) Ketorolac Injection (Toradol Injection) (12/27/17 04:12) Medications Given in ED Current Medications Medications Dose Ordered Sig/Kiarra Route Start Time Stop Time Status Last Admin Dose Admin Insulin Human Regular 20 unit ONCE ONCE IV 12/27/17 03:30 12/27/17 03:31 DC 12/27/17 03:49 20 UNIT Iohexol 100 ml ONCE ONCE IV 12/27/17 04:00 12/27/17 04:01 DC 12/27/17 04:02 100 ML Sodium Chloride 250 ml ONCE ONCE IV 12/27/17 04:00 12/27/17 04:01 DC 12/27/17 04:02 80 ML Sodium Chloride 1,000 ml @ 0 mls/hr Q0M ONCE IV 12/27/17 03:25 12/27/17 03:27 DC 12/27/17 03:48 1,000 MLS/HR Vital Signs/I&O Vital Sign - Last 12Hours 12/27/17 01:57 Temp 97.2 Pulse 78 Resp 20 B/P (MAP) 139/92 (108) Pulse Ox 98 O2 Delivery Room Air Blood Pressure Mean: 108 Point of Care Testing Finger Stick Blood Glucose: 496 Urine -Bedside: Negative Blood Glucose Action Taken: report to Dr draw venous Progress Note : Progress Note GIVEN IV FLUIDS AND INSULIN BLOOD GLUCOSE 299 PRIOR TO DISMISSAL UNEVENTFUL ER STAY NO COMPLAINTS DURING ER STAY Diagnostic Imaging Comments CT ABDOMEN/PELVIS--NO ACUTE PROCESS, RETAINED STOOL IN COLON, DIFFUSE FATTY LIVER, TINY PERIUMBILICAL FAT-CONTAINING HERNIA--PER [facility] VIA FAX @ [id number] Departure Impression Impression: Primary Impression: Constipation Additional Impressions: Upper abdominal pain Uncontrolled diabetes mellitus SMALL PERIUMBILICAL HERNIA Disposition: HOME, SELF-CARE Condition: Improved Departure-Patient Inst. Referrals: OLGA LUCERO MD (PCP/Family) Primary Care Physician Patient Instructions: Acute Abdomen (Belly Pain), Adult (DC), Blood Glucose Monitoring, Constipation, Adult (DC), DIABETES, Diabetes Diet , Diabetes Type 2 (DC), Umbilical Hernia, Adult Add. Discharge Instructions: CHECK YOUR BLOOD GLUCOSE AT LEAST 3 TIMES A DAY, BEFORE EACH MEAL, AND KEEP DIARY HOLD YOUR METFORMIN FOR 2 DAYS TAKE ALL OTHER MEDICATIONS PRESCRIBED TAKE MIRALAX EVERY 2 HOURS UNTIL YOUR STOOLS ARE CLEAR/WATERY, THEN TAKE ONCE A DAY INCREASE YOUR WATER INTAKE AVOID HIGH SUGAR/HIGH CALORIE/ HIGH CARBOHYDRATE FOOD AND DRINKS FOLLOW UP WITH YOUR DR IN 3-4 DAYS FOR FURTHER CARE All discharge instructions reviewed with patient and/or family. Voiced understanding. GAURANG STANTON DO Dec 27, 2017 03:32
[2017-12-27] MEDS ORDERED: IOHEXOL 350 MG/ML 100 ML (OMNIPAQUE 350) VIAL IV ONE (04:00)
[2017-12-27] MEDS ORDERED: NS 250 ML (IVPB) BAG IV ONE (04:00)
[2017-12-27 04:08] LABS: ABG BASE EXCESS 0.4 MMOL/L (-2.5-2.5); ABG OXYGEN SATURATION 96 % (94-100); ABG PCO2 40 MMHG (35-45); ABG PO2 74 MMHG (79-93); ABG TCO2 26.1 MMOL/L (21.0-31.0)
[2017-12-27 04:09] LABS: ALLENS TEST YES-POS; INSPIRED O2 RA; PATIENT TEMP 97.2; VENTILATOR NO
[2017-12-27] MEDS ORDERED: KETOROLAC 30 MG/ML VIAL IVP STA (04:12)
[2017-12-27 05:59] VITALS: BP 120/78
--- NOTE | 2017-12-27 06:23 | Diagnostic Imaging Report ---
PROCEDURE: CT abdomen and pelvis with contrast. TECHNIQUE: Multiple contiguous axial images were obtained through the abdomen and pelvis after administration of intravenous contrast. INDICATION: Abdominal pain with history of cholecystectomy and appendectomy. FINDINGS: The heart size is normal. Lung bases are clear. There is fatty infiltration of liver. There is no biliary ductal dilatation. Gallbladder is surgically absent. Spleen is normal. The pancreas and adrenal glands are unremarkable. The kidneys are normal. The aorta is nonaneurysmal. Bowel gas pattern is nonspecific. There is no free air. There is no ascites. There are no focal inflammatory changes. Bladder is normal. There is no pelvic mass, adenopathy or free fluid. The osseous structures are unremarkable. IMPRESSION: No acute abnormality in the abdomen or pelvis. Diffuse fatty infiltration of liver. Nonspecific bowel gas pattern. Dictated by: Dictated on workstation # [id number]
== END 2017-12-27 05:59 | disposition home or self-care (01) ==
LOC: EDUNIT# 01:46 → ER 01:47
DX: K59.00 Constipation, unspecified (principal); E11.9 Type 2 diabetes mellitus without complications; K42.9 Umbilical hernia without obstruction or gangrene; F90.9 Attention-deficit hyperactivity disorder, unspecified type; F41.9 Anxiety disorder, unspecified; F20.9 Schizophrenia, unspecified; F31.9 Bipolar disorder, unspecified; E03.9 Hypothyroidism, unspecified; K21.9 Gastro-esophageal reflux disease without esophagitis; G43.909 Migraine, unspecified, not intractable, without status migrainosus; F17.210 Nicotine dependence, cigarettes, uncomplicated; Z90.49 Acquired absence of other specified parts of digestive tract; Z79.4 Long term (current) use of insulin; Z79.52 Long term (current) use of systemic steroids; Z88.0 Allergy status to penicillin; Z88.1 Allergy status to other antibiotic agents
CPT/HCPCS: 36415; 74177; 80053; 80306; 80320; 81000; 82150; 82805; 82962; 83690; 84703; 85025; 96361; 96374; 96375

== ENCOUNTER 2018-01-29 00:41 | Observation (INO) | payer MEDICARE, MEDICAID ==
[~2018-01-29] VITALS: Ht 165.1 cm; Wt 88.1 kg
[2018-01-29] VITALS (18 sets, daily range): BP systolic 100–143; BP diastolic 73–96
[~2018-01-29 00:41] MED LIST changes: -CITA20TA7; +CITA20TA7 PO; -CITA40TA11; +CITA40TA11 PO; -CYPR4TAB; -HYDR-3820; +HYDR-3820 PO; -LEVO50TA; +LEVO50TA PO; -PALI6TAB6; +PALI6TAB6 PO
--- OUTSIDE RECORDS SUMMARY | 2018-01-29 00:48 | XMS REPORT | Clinical Summary ---
Author Author [facility] Organization [facility] Address Unknown Phone Unavailable Care Team Providers [facility] Social Worker Name Role Phone Patrick Ryan MD PCP Source Comments Some departments are not documenting in the electronic medical record. If you do not see the information that you expected, contact Release of Information in the Health Information Management department at [phone] for further assistance in locating additional records.[facility] Allergies Active Allergy Reactions Severity Noted [...] PHYSICAL (COMPREHENSIVE) 1988 EXAM PERTUSSIS VACCINE 1992 HIV SCREENING 1996 TETANUS VACCINE 1998 CERVICAL CANCER SCREENING 2011 INFLUENZA VACCINE 07/24/2018 Results Not on filefrom Last 3 Months
--- OUTSIDE RECORDS SUMMARY | 2018-01-29 00:49 | XMS REPORT ---
Author Author YAIR Muñoz Organization 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 564078115 Problem Borderline personality disorder F60.3 Active 91703035 Problem High risk medication use Z79.899 Active 180444391 Problem Schizoaffective disorder, unspecified F25.9 Active 27818040 Problem Paranoid schizophrenia F20.0 Active 34129571 Problem Posttraumatic stress disorder F43.10 Active 88177202 Problem Attention deficit hyperactivity disorder (ADHD), inattentive type, 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 [id number] [address] Jan, [facility] [address] [address] Dec, 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 [address] [address] Nov, [facility] [id number] [place] [address] 32154- 0908 Oct, Paranoid schizophrenia F20.0 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 [id number] [place] [address] 84051- 9284 Oct, [facility] [id number] [place] [address] 97498- 3077 Oct, [facility] [id number] [place] [address] 45280- 1700 Sep, 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 [address] [address] Sep, Paranoid schizophrenia F20.0 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 [address] [address] Aug, 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 [address] [address] 39[address] Jul, Paranoid schizophrenia F20.0 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 [address] [address]266 May, Other longterm (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 Z79.899 [facility] [address] [address] 7[address] May, [facility] [address], [place] [address] 1476 May, 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 [address] [address]- 6907 May, 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 [address], [place] [address] 2[address] Apr, Paranoid schizophrenia F20.0 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 [address] [address] 60[address] February, 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 [id number] [place] [address] 23108- 5346 13 Nov, 2016 High risk medication use Z79.899 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 [address] [address]- 9111 Aug, 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 [address] [facility] [id number], [place] [address]- 7192 Jul, 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 [id number] [place] [address] 72530- 5085 Jun, [facility] [id number] [place] [address] 64905- 0451 May, Paranoid schizophrenia F20.0 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 [address], [place] [address]- 9877 May, [facility] [id number], [place] [address]- 4563 May, Paranoid schizophrenia F20.0 [facility] [id number] [place] [address] 66603- 2769 May, [facility] [id number] [address]- 2303 May, Paranoid schizophrenia F20.0 [facility] [id number], [place] [address]- 5155 May, Schizoaffective disorder, unspecified F25.9 [facility] [id number] [place] [address] 38256- 9834 May, Schizoaffective disorder, unspecified F25.9 [facility] [address] [facility] [id number], [place] [address]- 6033 May, [facility] [address] [facility] [id number] [address]- 4091 May, Paranoid schizophrenia F20.0 [facility] [address] 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 [address] [facility] [id number], [place] [address]- 3513 Mar, 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 [address] [facility] [id number], [place] [address]- 7493 Mar, Paranoid schizophrenia F20.0 [facility] [address] 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 [id number] [address]- 1310 Mar, [facility] [address] 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 [address] [facility] [id number], [place] [address]- 9595 February, [facility] [id number] [place] [address] 43240- 4727 February, [facility] [address] [address]- 6886 February, [facility] [address] [facility] [id number] [place] [address] 728963- 1813 February, [facility] [id number] [place] [address] 88502- 9963 Jan, Paranoid schizophrenia F20.0 [facility] [id number] [place] [address] [id number] Jan, Dental examination Z01.20 [facility] [id number] [place] [address] [id number] Jan, Dental caries K02.9 [facility] [id number] [place] [address] [id number] Jan, Dental examination Z01.20 [facility] [id number] [place] [address] [id number] Dec, Encounter for dental examination Z01.20 [facility] [id number] [place] [address] 24167- 4420 Dec, Paranoid schizophrenia F20.0 [facility] [id number] [place] [address] [id number] Dec, Dental examination Z01.20 [facility] [address], [place] [address]- 2599 Dec, 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 [address], [place] [address]- 9576 Nov, Schizoaffective disorder, unspecified F25.9 [facility] [id number] [place] [address] 81106- 2416 Oct, Paranoid schizophrenia F20.0 [facility] [address] [address]- 3774 Oct, 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 [address], [place] [address]- 4059 Sep, 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 [address] [address]- 5943 Aug, Paranoid schizophrenia F20.0 [facility] [address] [address]- 3120 Aug, 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 [address] [address]- 6692 Jul, Bipolar disorder, unspecified F31.9 [facility] [address], [place] [address]- 9604 Jul, [facility] [id number], [place] [address]- 7486 Jun, [facility] [address] [address]- 4837 Jun, Schizoaffective disorder, chronic 295.72 ; Posttraumatic stress disorder 309.81 and Attention deficit disorder 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 314.00 [facility] [address] [address]- 6568 May, [facility] [id number] [place] [address] 45120- 0816 May, [facility] [address] [address]- 0596 May, Schizoaffective disorder, chronic 295.72 ; Posttraumatic stress disorder 309.81 ; Attention deficit disorder 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 314.00 and Bipolar disorder, unspecified 296.80 [facility] [id number] [place] [address] 66500- 0367 Apr, Schizoaffective disorder, chronic 295.72 [facility] [address] [address]- 4021 Apr, [facility] [id number] [place] [address] 57954- 1052 Apr, Schizoaffective disorder, chronic 295.72 ; Posttraumatic stress disorder 309.81 and Attention deficit disorder 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 314.00 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 [address] [address]- 1996 Mar, [facility] [id number] [place] [address] 29549- 8612 Mar, [facility] [address] [address]- 2348 Mar, [facility] [id number] [place] [address] 66027- 5946 Mar, [facility] [address] [address]- 6093 February, Schizoaffective disorder, chronic 295.72 [facility] [address] [address]- 4946 February, [facility] [address] [address]- 4516 February, Attention deficit disorder 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 314.00 ; Posttraumatic stress disorder 309.81 and Schizoaffective disorder, chronic 295.72 [facility] [address] [place] [address]- 7726 Jan, [facility] [id number] [place] [address]- 5046 Jan, [facility] [address] [place] [address]- 2476 Jan, [facility] [address] [address]- 6376 Dec, [facility] [address] [place] [address]- 0229 Dec, [facility] [address]- 5514 Dec, [facility] [address]- 9005 Dec, [facility] [id number] [address] Dec, [facility] [id number] [address] Dec, [facility] [id number] [address] Dec, [facility] [id number] [place] [address] Dec, [facility] [address] [id number] [address] Nov, [facility] [id number], [place] [address] Nov, [facility] [place] [facility] [address] [id number] [place] [address] Nov, [facility] [place] [facility] [address] [id number] [place] [address] Nov, [facility] [place] [facility] [address] [facility] [id number] [place] [address] Nov, [facility] [place] [facility] [address] [id number] [place] [address] Nov, 2014 [facility] [place] [facility] [address] [id number] [place] [address] Nov, [facility] [place] [facility] [address] [facility] [id number] [place] [address] Nov, [facility] [place] [facility] [address] [facility] [id number] [place] [address] Nov, [facility] [place] [facility] [address] [facility] [id number] [place] [address] Nov, [facility] [place] [facility] [address] [facility] [id number] [place] [address] Oct, [facility] [place] [facility] [address] [facility] [id number] [place] [address] Oct, [facility] [place] [facility] [address] [facility] [id number] [place] [address] Oct, [facility] [place] [facility] [address] [facility] [id number] [address] Oct, [facility] [place] [facility] [address] [id number] [place] [address] Oct, [facility] [place] [facility] [address] [facility] [id number] [place] [address] Oct, [facility] [place] [facility] [address] [facility] [id number] [place] [address] Oct, [facility] [place] [facility] [address] [id number] [place] [address] 17 Sep, 2014 [facility] [place] [facility] [address] [id number] [place] [address] 17 Sep, 2014 [facility] [place] [facility] [address] [address] [id number] [place] [address] 15 Sep, 2014 [facility] [place] [facility] [address] [id number] [place] [address] 94[address] 15 Sep, 2014 [facility] [place] [facility] [address] [id number] [place] [address] 1019 Aug, [facility] [place] [facility] [address] [id number] [place] [address] 2990 20 Aug, 2014 [facility] [place] [facility] [address] [id number] [place] [address] 8127 14 Aug, 2014 [facility] [place] [facility] [address] [id number] [place] [address]- 1557 Aug, [facility] [place] [facility] [address] [id number] [place] [address] 8008 Aug, [facility] [place] [facility] [address] [id number] [place] [address] 7814 Aug, [facility] [place] [facility] [address] [id number] [place] [address] 1260 29 Jul, 2014 [facility] [place] [facility] [address] [id number] [place] [address]- 8627 29 Jul, 2014 [facility] [place] [facility] [address] [id number] [place] [address] 0750 24 Jul, 2014 [facility] [place] [facility] [address] [id number] [place] [address]- 5077 24 Jul, 2014 [facility] [place] [facility] [address] [id number] [place] [address]- 2393 15 Jul, 2014 [facility] [place] [facility] [address] [id number] [place] [address] 1425 15 Jul, 2014 [facility] [place] [facility] [address] [id number] [place] [address]- 8816 27 Jun, 2013 [facility] [place] [facility] [address] [id number] [place] [address]- 4337 27 Jun, 2013 [facility] [place] [facility] [address] [id number] [place] [address]- 2406 26 Jun, 2013 [facility] [place] [facility] [address] [id number] [place] [address]- 3686 26 Jun, 2013 [facility] [place] [facility] [address] [id number] [place] [address]- 7760 26 Jun, 2013 [facility] [place] [facility] [address] [id number] [place] [address]- 5229 Jun, 2013 [facility] [place] [facility] [address] [id number] [place] [address]- 8395 16 Jun, 2013 [facility] [place] [facility] [address] [id number] [place] [address]- 6477 16 Jun, 2013 [facility] [place] [facility] [address] [id number] [place] [address]- 5777 16 Jun, 2013 [facility] [place] [facility] [address] [id number] [place] [address]- 1808 16 Jun, 2013 [facility] [place] [facility] [address] [id number] [address] Jun, [facility] [place] [facility] [address] [id number], [place] [address]- 6917 May, [facility] [place] [facility] [address] [id number] [place] [address]- 2043 May, [facility] [place] [facility] [address] [id number] [place] [address]- 4959 May, [facility] [place] [facility] [address] [id number] [place] [address]- 6844 May, [facility] [place] [facility] [address] [id number] [place] [address]- 2459 May, [facility] [place] [facility] [address] [id number] [place] [address]- 7281 May, [facility] [place] [facility] [address] [id number] [place] [address]- 9624 May, [facility] [place] [facility] [address] [id number] [place] [address]- 0089 May, [facility] [place] [facility] [address] [id number] [place] [address]- 3649 May, [facility] [place] [facility] [address] [id number] [place] [address]- 0535 May, [facility] [place] [facility] [address] [id number] [place] [address]- 1585 Apr, [facility] [place] [facility] [address] [id number] [place] [address]- 8888 Apr, [facility] [place] [facility] [address] [id number] [place] [address]- 0735 Apr, [facility] [place] [facility] [address] [id number] [place] [address]- 2910 Apr, [facility] [place] [facility] [address] [id number] [place] [address]- 1804 Apr, [facility] [place] [facility] [address] [id number] [place] [address]- 0024 Apr, [facility] [place] [facility] [address] [id number] [place] [address]- 7872 Apr, [facility] [place] [facility] [address] [id number] [place] [address]- 3994 Apr, [facility] [place] [facility] [address] [id number] [place] [address]- 4804 Apr, [facility] [place] [facility] [address] [id number] [place] [address]- 3594 Apr, [facility] [place] [facility] [address] [id number] [place] [address]- 4902 Mar, [facility] [place] [facility] [address] [id number] [place] [address]- 0887 Mar, [facility] [place] [facility] [address] [id number] [place] [address]- 8913 Mar, [facility] [place] [facility] [address] [id number] [place] [address]- 2796 Mar, [facility] [place] [facility] [address] [id number] [place] [address]- 2678 Mar, [facility] [place] [facility] [address] [id number] [place] [address]- 9168 Mar, [facility] [place] [facility] [address] [id number] [place] [address]- 2047 Mar, [facility] [place] [facility] [address] [id number] [place] [address]- 4126 Mar, [facility] [place] [facility] [address] [id number] [place] [address]- 2030 Mar, [facility] [place] [facility] [address] [id number] [place] [address]- 9583 Mar, [facility] [place] [facility] [address] [id number] [place] [address]- 7108 Mar, [facility] [place] [facility] [address] [id number] [place] [address]- 9136 Mar, [facility] [place] [facility] [address] [id number] [place] [address]- 9092 Mar, [facility] [place] [facility] [address] [id number] [place] [address]- 1786 10 Mar, 2014 [facility] [place] [facility] [address] [id number] [place] [address]- 6065 09 Mar, 2014 [facility] [place] [facility] [address] [id number] [place] [address]- 0484 Mar, [facility] [place] [facility] [address] [id number] [place] [address]- 3356 Mar, [facility] [place] [facility] [address] [id number] [place] [address] Mar, [facility] [place] [facility] [address] [id number] [place] [address]- 3520 Mar, [facility] [place] [facility] [address] [id number] [place] [address]- 9333 Mar, [facility] [place] [facility] [address] [id number] [place] [address]- 7133 February, [facility] [place] [facility] [address] [id number] [place] [address]- 5396 February, [facility] [place] [facility] [address] [id number] [place] [address]- 5051 February, [facility] [place] [facility] [address] [id number] [place] [address]- 3387 February, [facility] [place] [facility] [address] [id number] [place] [address]- 1502 February, [facility] [place] [facility] [address] [id number] [place] [address]- 1984 February, [facility] [place] [facility] [address] [id number] [place] [address]- 7967 February, [facility] [place] [facility] [address] [id number] [place] [address]- 6565 February, [facility] [place] [facility] [address] [id number] [place] [address]- 8557 February, [facility] [place] [facility] [address] [id number] [place] [address]- 2708 February, [facility] [place] [facility] [address] [id number] [place] [address]- 0346 February, [facility] [place] [facility] [address] [id number] [place] [address]- 9581 February, [facility] [address] [id number] [place] [address]- 7301 February, [facility] [address] [id number] [place] [address]- 3816 February, [facility] [address] [id number] [place] [address]- 8331 February, [facility] [address] [id number] [place] [address]- 6173 February, [facility] [address] [id number] [place] [address]- 3443 February, [facility] [address] [id number] [place] [address]- 6621 February, [facility] [address] [id number] [place] [address]- 9147 February, [facility] [address] [id number] [place] [address]- 7875 February, [facility] [address] [id number] [place] [address]- 7062 February, [facility] [address] [id number] [place] [address]- 8584 Jan, [facility] [place] [facility] [address] [id number] [place] [address]- 3363 Jan, [facility] [address] [id number] [place] [address]- 6123 Jan, [facility] [place] [facility] [address] [id number] [place] [address]- 8046 Jan, [facility] [place] [facility] [address] [id number] [place] [address]- 7274 Jan, [facility] [place] [facility] [address] [id number] [place] [address]- 0043 Jan, [facility] [place] [facility] [address] [id number] [place] [address]- 7537 10 Jan, 2014 [facility] [place] [facility] [address] [id number] [place] [address]- 8398 10 Jan, 2014 [facility] [place] [facility] [address] [id number] [place] [address]- 7759 21 Dec, 2013 [facility] [place] [facility] [address] [id number] [place] [address]- 8390 20 Dec, 2013 [facility] [place] [facility] [address] [id number] [place] [address]- 6978 20 Dec, 2013 [facility] [place] [facility] [address] [id number] [place] [address]- 5781 19 Dec, 2013 [facility] [place] [facility] [address] [id number] [place] [address]- 9741 19 Dec, 2013 [facility] [place] [facility] [address] [id number] [place] [address]- 2142 15 Dec, 2013 [facility] [place] [facility] [address] [id number] [place] [address]- 8719 15 Dec, 2013 [facility] [place] [facility] [address] [id number] [place] [address]- 6733 11 Dec, 2013 [facility] [place] [facility] [address] [id number] [place] [address]- 3270 10 Dec, 2013 [facility] [place] [facility] [address] [id number] [place] [address]- 9877 10 Dec, 2013 [facility] [place] [facility] [address] [id number] [place] [address]- 0229 18 Nov, 2013 [facility] [place] [facility] [address] [id number] [place] [address]- 2043 17 Nov, 2013 [facility] [place] [facility] [address] [id number] [place] [address]- 7924 17 Nov, 2013 [facility] [place] [facility] [address] [id number] [place] [address]- 5093 Nov, [facility] [address] [id number] [place] [address]- 6246 Nov, [facility] [place] [facility] [address] [id number] [place] [address]- 1878 Oct, [facility] [place] [facility] [address] [id number] [place] [address]- 0433 Oct, [facility] [place] [facility] [address] [id number] [place] [address]- 1407 Oct, [facility] [place] [facility] [address] [id number] [place] [address]- 6742 Sep, [facility] [place] [facility] [address] [id number] [place] [address]- 0865 Sep, [facility] [place] [facility] [address] [id number] [place] 9411 Sep, [facility] [place] [facility] [address] [id number] [place] [address]- 5192 Sep, [facility] [place] [facility] [address] [id number] [place] [address]- 5804 Aug, [facility] [place] [facility] [address] [facility] [id number] [place] [address]- 1838 Aug, [facility] [place] [facility] [address] [id number] [place] [address]- 8040 Jul, [facility] [place] [facility] [address] [id number] [place] [address]- 6449 Jul, [facility] [place] [facility] [address] [id number] [place] [address]- 9608 Jul, [facility] [place] [facility] [address] [id number] [place] [address]- 4655 Jul, [facility] [place] [facility] [address] [id number] [place] [address]- 7303 Jul, [facility] [place] [facility] [address] [id number] [place] [address]- 7727 25 Jun, 2012 [facility] [place] [facility] [address] [id number] [place] [address]- 8456 25 Jun, 2012 [facility] [place] [facility] [address] [id number] [place] [address]- 9655 19 Jun, 2012 [facility] [place] [facility] [address] [id number] [place] [address]- 1159 18 Jun, 2013 [facility] [address] [id number] [place] [address]- 5162 16 Jun, 2013 [facility] [place] [facility] [address] [id number] [place] [address]- 4965 12 Jun, 2013 [facility] [address] [id number] [place] [address]- 8217 Jun, [facility] [address] [id number] [place] [address]- 3750 30 May, 2013 [facility] [place] [facility] [address] [id number] [place] [address]- 0294 May, [facility] [place] [facility] [address] [id number] [place] [address]- 3283 Apr, [facility] [place] [facility] [address] [id number] [place] [address]- 9917 Apr, [facility] [place] [facility] [address] [id number] [place] [address]- 7550 Apr, [facility] [place] [facility] [address] [id number] [place] [address]- 8867 Mar, [facility] [place] [facility] [address] [id number] [place] [address]- 9305 Mar, [facility] [place] [facility] [address] [id number] [place]70 February, [facility] [place] [facility] [address] [id number] [place] [address]- 7065 February, [facility] [address] [id number] [place] [address]- 5097 February, [facility] [address] [id number] [place] 4931 February, [facility] [address] [id number] [place] [address]- 7635 Jan, [facility] [address] [id number] [place] [address]- 7565 Jan, [facility] [address] [id number] [place] [address]- 8806 Jan, [facility] [address] [id number] [place] [address]- 3708 Dec, [facility] [address] [id number] [place] [address]- 3999 Dec, [facility] [address] [id number] [place] [address]- 7501 Dec, [facility] [address] [id number] [place] [address]- 9144 Dec, [facility] [address] [id number] [place] [address]- 7894 Nov, [facility] [address] [id number] [place] [address]- 3761 Nov, [facility] [place] [facility] [address] [id number] [place] [address]- 4158 Oct, [facility] [place] [facility] [address] [id number] [place] [address]- 0816 Oct, [facility] [place] [facility] [address] [id number] [place] [address]- 9720 Oct, [facility] [place] [facility] [address] [id number] [place] [address]- 6626 Oct, [facility] [place] [facility] [address] [id number] [place] [address]- 9456 Aug, [facility] [place] [facility] [address] [id number] [place] [address]- 6257 Aug, [facility] [place] [facility] [address] [id number] [place] [address]- 2546 Jun, [facility] [place] [facility] [address] [id number] [place] [address]- 4536 May, [facility] [place] [facility] [address] [id number] [place] [address] 2546 May, [facility] [place] [facility] [address] [id number] [place] [address]- 2943 Apr, [facility] [place] [facility] [address] [id number] [place] [address]- 3556 Apr, [facility] [place] [facility] [address] [id number] [place] [address]- 7197 Apr, [facility] [place] [facility] [address] [id number] [place] [address]- 7738 Mar, [facility] [place] [facility] [address] [id number] [place] [address]- 4716 Mar, [facility] [place] [facility] [address] [id number] [place] [address]- 9416 Mar, [facility] [place] [facility] [address] [id number] [place] [address]- 2948 Mar, [facility] [place] [facility] [address] [id number] [place] [address]- 7646 Mar, [facility] [place] [facility] [address] [id number] [place] [address]- 1466 February, [facility] [place] [facility] [address] [id number] [place] [address]- 3776 February, [facility] [place] [facility] [address] [id number] [place] [address]- 6835 February, [facility] [address] [id number] [place] [address]- 3011 February, [facility] [place] [facility] [address] [id number] [place] [address]- 3347 February, [facility] [place] [facility] [address] [id number] [place] [address]- 3420 February, [facility] [place] [facility] [address] [id number] [place] [address]- 8480 February, [facility] [place] [facility] [address] [id number] [place] [address]- 2097 Jan, [facility] [place] [facility] [address] [id number] [place] [address]- 3587 18 Jan, 2012 [facility] [place] [facility] [address] [id number] [place] [address]- 9895 Jan, [facility] [place] [facility] [address] [id number] [place] [address]- 5064 Jan, [facility] [place] [facility] [address] [id number] [place] [address]- 0977 10 Jan, 2012 [facility] [place] [facility] [address] [id number] [place] [address]- 8426 04 Jan, 2012 [facility] [place] [facility] [address] [id number] [place] [address]- 0929 30 Dec, 2011 [facility] [place] [facility] [address] [id number], [place] [address]- 5805 24 Dec, 2011 [facility] [place] [facility] [address] [id number] [place] [address]- 2832 20 Dec, 2011 [facility] [place] [facility] [address] [id number] [place] [address]- 7801 13 Dec, 2011 [facility] [place] [facility] [address] [id number] [place] [address]- 0883 06 Dec, 2011 [facility] [place] [facility] [address] [id number] [place] [address]- 5846 28 Nov, 2011 [facility] [address] [id number] [place] [address]- 3166 27 Nov, 2011 [facility] [place] [facility] [address] [id number] [place] [address] 2546 25 Nov, 2011 [facility] [address] [id number] [place] [address] 14 Nov, 2011 [facility] [place] [facility] [address] [id number] [place] [address]46 10 Nov, 2011 [facility] [address] [id number] [place] [address] Nov, [facility] [address] [id number] [place] [address] Oct, [facility] [address] [id number] [place] [address] Oct, [facility] [address] [id number] [place] [address] Oct, [facility] [address] [id number] [place] [address] Oct, [facility] [address] [id number] [place] [address] Oct, [facility] [address] [id number] [place] [address] 25[address] Sep, [facility] [address] [id number] [place] [address] 25[address] Sep, [facility] [place] [facility] [address] [id number] [place] [address] 2546 Sep, [facility] [place] [facility] [address] [id number] [place] [address] 2546 Sep, [facility] [place] [facility] [address] [id number] [place] [id number] Sep, [facility] [place] [facility] [address] [id number] [place] [address] Sep, [facility] [place] [facility] [address] [id number] [place] [address] Sep, [facility] [place] [facility] [address] [id number] [place] [address] Sep, [facility] [place] [facility] [address] [id number] [place] [address] Sep, [facility] [place] [facility] [address] [id number] [place] [address] Aug, [facility] [place] [facility] [address] [id number] [place] [address] Aug, [facility] [place] [facility] [address] [id number] [place] [address] Aug, [facility] [place] [facility] [address] [id number] [place] [address] Aug, [facility] [place] [facility] [address] [id number] [place] [address] Aug, [facility] [place] [facility] [address] [id number] [place] [address]- [address] Aug, [facility] [place] [facility] [address] [id number] [place] [address] Aug, [facility] [place] [facility] [address] [id number] [place] [address] Aug, [facility] [place] [facility] [address] [id number] [place] [address] Aug, [facility] [place] [facility] [address] [id number] [place] [address]- [address] Aug, [facility] [place] [facility] [address] [id number] [place] [address]- [address] Aug, [facility] [place] [facility] [address] [id number] [place] [address] Aug, [facility] [place] [facility] [address] [id number] [place] [address] Jul, [facility] [place] [facility] [address] [id number] [place] [address]- [address] Jul, [facility] [place] [facility] [address] [id number] [place] [address] Jul, [facility] [place] [facility] [address] [id number] [place] [address] Jul, [facility] [place] [facility] [address] [id number] [place] [address] Jul, [facility] [place] [facility] [address] [id number] [place] [address] Jul, [facility] [place] [facility] [address] [id number] [place] [address] Jul, [facility] [place] [facility] [address] [id number] [place] [address]- [address] Jul, [facility] [place] [facility] [address] [id number] [place] [address] Jul, [facility] [place] [facility] [address] [id number] [place] [address]- [address] Jul, [facility] [place] [facility] [address] [id number] [place] [address] Nov, [facility] [place] [facility] [address] [id number], [place] [address] Aug, [facility] [place] [facility] [address] [id number] [place] [address]- [address] Aug, [facility] [place] [facility] [address] [id number] [place] [address] Aug, [facility] [place] [facility] [address] [id number] [address] Aug, [facility] [place] [facility] [address] [facility] [id number] [place] [address] Jul, IMMUNIZATIONS No Known Immunizations SOCIAL HISTORY Never Assessed REASON FOR VISIT Gaunafacine note PLAN OF CARE VITAL SIGNS MEDICATIONS Medication Instructions Dosage Frequency Start Date End Date Duration Status GuanFACINE HCl ER 1 MG Orally Once a day 1 tablet 24h Apr, 30 day(s) Active RESULTS No Results PROCEDURES No Known procedures INSTRUCTIONS MEDICATIONS ADMINISTERED No Known Medications MEDICAL (GENERAL) HISTORY Type Description Date Medical History diabetes Medical History thyroid Surgical History appendix Surgical History gallbladder Surgical History eyes Surgical History hip Surgical History MRI on back and pelvis 06/08 Hospitalization History surgeries Hospitalization History [facility] Su[facility] attempt by hanging 06/14/2016
--- OUTSIDE RECORDS SUMMARY | 2018-01-29 00:56 | XMS REPORT | Continuity of Care Document ---
Author Author [facility] Address Unknown Phone Unavailable Allergies Active Description Code Type Severity Reaction Onset Reported/Identified Relationship to Patient Clinical Status Yes cefuroxime [id number] Drug Allergy Severe RASH 12/14/2005 Yes Penicillins [id number] Drug Allergy Severe RASH 12/14/2005 Yes amoxicillin [id number] Drug Allergy Severe sob, rash 11/01/2010 Yes [...] Delayed Release(E.C.) Drug Allergy 2011 Yes clarithromycin [id number] Drug Allergy Mild nausea and dizz 02/07/2014 [...] AFFECTIVE 07/17/2010 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 07/17/2010 FINLEY AUTOMOTIVE GLAZIER, AFUA BOSWELL 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 07/17/2010 FINLEY AUTOMOTIVE GLAZIER, AFUA BOSWELL 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 07/17/2010 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 07/17/2010 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 07/17/2010 FINLEY AUTOMOTIVE GLAZIER, AFUA BOSWELL 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 07/17/2010 FINLEY AUTOMOTIVE GLAZIER, AFUA BOSWELL 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 07/17/2010 295.70 [...] AFFECTIVE 07/17/2010 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 07/17/2010 FINLEY AUTOMOTIVE GLAZIER, AFUA BOSWELL 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 07/17/2010 FINLEY AUTOMOTIVE GLAZIER, AFUA BOSWELL 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 07/17/2010 FINLEY AUTOMOTIVE GLAZIER, AFUA BOSWELL 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 07/17/2010 FINLEY AUTOMOTIVE GLAZIER, AFUA LIZAMAH 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 07/17/2010 FINLEY AUTOMOTIVE GLAZIER, AFUA BOSWELL 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 07/17/2010 FINLEY AUTOMOTIVE GLAZIER, AFUA LIZAMAH 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 07/17/2010 FINLEY AUTOMOTIVE GLAZIER, AFUA BOSWELL 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 07/17/2010 FINLEY AUTOMOTIVE GLAZIER, AFUA LIZAMAH 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 07/17/2010 FILNEY AUTOMOTIVE GLAZIER, AFUA BOSWELL 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 07/17/2010 FINLEY AUTOMOTIVE GLAZIER, AFUA LIZAMAH 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 07/17/2010 FINLEY AUTOMOTIVE GLAZIER, AFUA BOSWELL 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 07/17/2010 FINLEY AUTOMOTIVE GLAZIER, AFUA LIZAMAH 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 07/17/2010 FINLEY AUTOMOTIVE GLAZIER, AFUA BOSWELL 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 07/17/2010 FINLEY AUTOMOTIVE GLAZIER, AFUA BOSWELL 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 07/17/2010 FINLEY AUTOMOTIVE GLAZIER, AFUA BOSWELL 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 07/17/2010 FINLEY AUTOMOTIVE GLAZIER, AFUA BOSWELL 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 07/17/2010 FINLEY AUTOMOTIVE GLAZIER, AFUA BOSWELL 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 07/17/2010 FINLEY AUTOMOTIVE GLAZIER, AFUA BOSWELL 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 07/17/2010 LILA AUTOMOTIVE GLAZIER, BRYAN 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 07/17/2010 LILA AUTOMOTIVE GLAZIER, BRYAN 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 07/17/2010 VYAS DO ALVARO K 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 07/17/2010 VYAS DO ALVARO K 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 07/17/2010 LILA AUTOMOTIVE GLAZIER, BRYAN 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 07/17/2010 LILA AUTOMOTIVE GLAZIER, BRYAN 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 07/17/2010 LILA AUTOMOTIVE GLAZIER, BRYAN 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 07/17/2010 LILA AUTOMOTIVE GLAZIER, BRYAN 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 07/17/2010 LILA AUTOMOTIVE GLAZIER, BRYAN 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 07/17/2010 LILA AUTOMOTIVE GLAZIER, BRYAN 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 07/17/2010 LILA AUTOMOTIVE GLAZIER, BRYAN 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 07/17/2010 LILA AUTOMOTIVE GLAZIER, BRYAN 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 07/17/2010 VYAS DO ALVARO K 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 07/17/2010 VYAS DO ALVARO K 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 07/17/2010 LILA AUTOMOTIVE GLAZIER, BRYAN 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 07/17/2010 LILA AUTOMOTIVE GLAZIER, BRYAN 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 07/17/2010 LILA AUTOMOTIVE GLAZIER, BRYAN 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 07/17/2010 LILA AUTOMOTIVE GLAZIER, BRYAN 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 07/17/2010 LILA AUTOMOTIVE GLAZIER, BRYAN 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 07/17/2010 LILA AUTOMOTIVE GLAZIER, BRYAN 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 07/17/2010 LILA AUTOMOTIVE GLAZIER, BRYAN 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 07/17/2010 LILA AUTOMOTIVE GLAZIER, BRYAN 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 07/17/2010 LILA AUTOMOTIVE GLAZIER, BRYAN 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 07/17/2010 LILA AUTOMOTIVE GLAZIER, BRYAN 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 07/17/2010 VYAS DO, ALVARO K 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 07/17/2010 VYAS DO, ALVARO K 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 07/17/2010 VYAS DO, ALVARO K 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 07/17/2010 VYAS DO, ALVARO K 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 07/17/2010 LILA AUTOMOTIVE GLAZIER, BRYAN 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 07/17/2010 LILA AUTOMOTIVE GLAZIER, BRYAN 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 07/17/2010 LILA AUTOMOTIVE GLAZIER, BRYAN 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 07/17/2010 LILA AUTOMOTIVE GLAZIER, BRYAN 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 07/17/2010 LILA AUTOMOTIVE GLAZIER, BRYAN 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 07/17/2010 LILA AUTOMOTIVE GLAZIER, BRYAN 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 07/17/2010 LILA AUTOMOTIVE GLAZIER, BRYAN 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 07/17/2010 LILA AUTOMOTIVE GLAZIER, BRYAN 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 07/17/2010 LILA AUTOMOTIVE GLAZIER, BRYAN 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 07/17/2010 LILA AUTOMOTIVE GLAZIER, BRYAN 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 11/01/2010 Ot 682.3 [...] 12/11/2010 Ot 295.70 12/11/2010 Ot 780.79 02/22/2011 FINLEYMOINCO GAYNiharika AFUA BOSWELL 278.01 OBESITY, MORBID (BMI >40) 02/22/2011 FINLEY AUTOMOTIVE GLAZIER, AFUA BOSWELL 401.1 HYPERTENSION, BENIGN ESSENTIAL 02/22/2011 TUSHAR GAYNiharika AFUA BOSWELL 278.01 OBESITY, MORBID (BMI >40) 02/22/2011 TUSHAR CHAUDHRY AFUA LIZAMAH 401.1 HYPERTENSION, BENIGN ESSENTIAL 02/22/2011 278.01 OBESITY, MORBID (BMI >40) 02/22/2011 401.1 HYPERTENSION, BENIGN ESSENTIAL 02/22/2011 FINLEYMONICO GAYNiharika AFUA LIZAMAH 278.01 OBESITY, MORBID (BMI >40) 02/22/2011 FINLEY AUTOMOTIVE GLAZIER, AFUA LIZAMAH 401.1 HYPERTENSION, BENIGN ESSENTIAL 02/22/2011 278.01 OBESITY, MORBID (BMI >40) 02/22/2011 401.1 HYPERTENSION, BENIGN ESSENTIAL 02/22/2011 FINLEYMONICO GAYNiharika AFUA LIZAMAH 278.01 OBESITY, MORBID (BMI >40) 02/22/2011 TUSHAR [...] 02/22/2011 401.1 HYPERTENSION, BENIGN ESSENTIAL 02/22/2011 FINLEY AUTOMOTIVE GLAZIER, AFUA BOSWELL 278.01 OBESITY, MORBID (BMI >40) 02/22/2011 FINLEY AUTOMOTIVE GLAZIER, AFUA ANDREIA 401.1 HYPERTENSION, BENIGN ESSENTIAL 02/22/2011 FINLEY AUTOMOTIVE GLAZIER, AFUA ANDREIA 278.01 OBESITY, MORBID (BMI >40) 02/22/2011 FINLEY AUTOMOTIVE GLAZIER, AFUA ANDREIA 401.1 HYPERTENSION, BENIGN ESSENTIAL 02/22/2011 FINLEY AUTOMOTIVE GLAZIER, AFUA ANDREIA 278.01 OBESITY, MORBID (BMI >40) 02/22/2011 FINLEY AUTOMOTIVE GLAZIER, AFUA ANDREIA 401.1 HYPERTENSION, BENIGN ESSENTIAL 02/22/2011 FINLEY AUTOMOTIVE GLAZIER, AFUA ANDREIA 278.01 OBESITY, MORBID (BMI >40) 02/22/2011 FINLEY AUTOMOTIVE GLAZIER, AFUA LIZAMAH 401.1 HYPERTENSION, BENIGN ESSENTIAL 02/22/2011 FINLEY AUTOMOTIVE GLAZIER, AFUA ANDREIA 278.01 OBESITY, MORBID (BMI >40) 02/22/2011 FINLEY AUTOMOTIVE GLAZIER, AFUA LIZAMAH 401.1 HYPERTENSION, BENIGN ESSENTIAL 02/22/2011 FINLEY AUTOMOTIVE GLAZIER, AFUA ANDREIA 278.01 OBESITY, MORBID (BMI >40) 02/22/2011 FINLEY AUTOMOTIVE GLAZIER, AFUA ANDREIA 401.1 HYPERTENSION, BENIGN ESSENTIAL 02/22/2011 FINLEY AUTOMOTIVE GLAZIER, AFUA ANDREIA 278.01 OBESITY, MORBID (BMI >40) 02/22/2011 FINLEY AUTOMOTIVE GLAZIER, AFUA ANDREIA 401.1 HYPERTENSION, BENIGN ESSENTIAL 02/22/2011 FINLEY AUTOMOTIVE GLAZIER, AFUA ANDREIA 278.01 OBESITY, MORBID (BMI >40) 02/22/2011 FINLEY AUTOMOTIVE GLAZIER, AFUA ANDREIA 401.1 HYPERTENSION, BENIGN ESSENTIAL 02/22/2011 FINLEY AUTOMOTIVE GLAZIER, AFUA ANDREIA 278.01 OBESITY, MORBID (BMI >40) 02/22/2011 FINLEY AUTOMOTIVE GLAZIER, AFUA ANDREIA 401.1 HYPERTENSION, BENIGN ESSENTIAL 02/22/2011 LILA AUTOMOTIVE GLAZIER, BRYAN 278.01 OBESITY, MORBID (BMI >40) 02/22/2011 LILA AUTOMOTIVE GLAZIER, BRYAN 401.1 HYPERTENSION, BENIGN ESSENTIAL 02/22/2011 ALVARO VYAS DO 278.01 OBESITY, MORBID (BMI >40) 02/22/2011 ASAEL CHAPMAN ALVARO K 401.1 HYPERTENSION, BENIGN ESSENTIAL 02/22/2011 LILA AUTOMOTIVE GLAZIER, BRYAN 278.01 OBESITY, MORBID (BMI >40) 02/22/2011 LILA AUTOMOTIVE GLAZIER, BRYAN 401.1 HYPERTENSION, BENIGN ESSENTIAL 02/22/2011 LILA AUTOMOTIVE GLAZIER, BRYAN 278.01 OBESITY, MORBID (BMI >40) 02/22/2011 LILA AUTOMOTIVE GLAZIER, BRYAN 401.1 HYPERTENSION, BENIGN ESSENTIAL 02/22/2011 LILA AUTOMOTIVE GLAZIER, BRYAN 278.01 OBESITY, MORBID (BMI >40) 02/22/2011 LILA AUTOMOTIVE GLAZIER, BRYAN 401.1 HYPERTENSION, BENIGN ESSENTIAL 02/22/2011 LILA AUTOMOTIVE GLAZIER, BRYAN 278.01 OBESITY, MORBID (BMI >40) 02/22/2011 LILA AUTOMOTIVE GLAZIER, BRYAN 401.1 HYPERTENSION, BENIGN ESSENTIAL 02/22/2011 ASAEL CAHPMAN ALVARO K 278.01 OBESITY, MORBID (BMI >40) 02/22/2011 ASAEL CHAPMAN ALVARO K 401.1 HYPERTENSION, BENIGN ESSENTIAL 02/22/2011 LILA AUTOMOTIVE GLAZIER, BRYAN 278.01 OBESITY, MORBID (BMI >40) 02/22/2011 LILA AUTOMOTIVE GLAZIER, BRYAN 401.1 HYPERTENSION, BENIGN ESSENTIAL 02/22/2011 LILA AUTOMOTIVE GLAZIER, BRYAN 278.01 OBESITY, MORBID (BMI >40) 02/22/2011 LILA AUTOMOTIVE GLAZIER, BRYAN 401.1 HYPERTENSION, BENIGN ESSENTIAL 02/22/2011 LILA AUTOMOTIVE GLAZIER, BRYAN 278.01 OBESITY, MORBID (BMI >40) 02/22/2011 LILA AUTOMOTIVE GLAZIER, BRYAN 401.1 HYPERTENSION, BENIGN ESSENTIAL 02/22/2011 LILA AUTOMOTIVE GLAZIER, BRYAN 278.01 OBESITY, MORBID (BMI >40) 02/22/2011 LILA AUTOMOTIVE GLAZIER, BRYAN 401.1 HYPERTENSION, BENIGN ESSENTIAL 02/22/2011 LILA AUTOMOTIVE GLAZIER, BRYAN 278.01 OBESITY, MORBID (BMI >40) 02/22/2011 LILA AUTOMOTIVE GLAZIER, BRYAN 401.1 HYPERTENSION, BENIGN ESSENTIAL 02/22/2011 ASAEL CHAPMAN ALAVRO K 278.01 OBESITY, MORBID (BMI >40) 02/22/2011 ASAEL CHAPMAN ALVARO K 401.1 HYPERTENSION, BENIGN ESSENTIAL 02/22/2011 VYAS DO ALVARO K 278.01 OBESITY, MORBID (BMI >40) 02/22/2011 ALVARO VYAS DO 401.1 HYPERTENSION, BENIGN ESSENTIAL 02/22/2011 LILA AUTOMOTIVE GLAZIER, BRYAN 278.01 OBESITY, MORBID (BMI >40) 02/22/2011 LILA AUTOMOTIVE GLAZIER, BRYAN 401.1 HYPERTENSION, BENIGN ESSENTIAL 02/22/2011 LILA AUTOMOTIVE GLAZIER, BRYAN 278.01 OBESITY, MORBID (BMI >40) 02/22/2011 LILA AUTOMOTIVE GLAZIER, BRYAN 401.1 HYPERTENSION, BENIGN ESSENTIAL 02/22/2011 LILA AUTOMOTIVE GLAZIER, BRYAN 278.01 OBESITY, MORBID (BMI >40) 02/22/2011 LILA AUTOMOTIVE GLAZIER, BRYAN 401.1 HYPERTENSION, BENIGN ESSENTIAL 02/22/2011 LILA AUTOMOTIVE GLAZIER, BRYAN 278.01 OBESITY, MORBID (BMI >40) 02/22/2011 LILA AUTOMOTIVE GLAZIER, BRYAN 401.1 HYPERTENSION, BENIGN ESSENTIAL 02/22/2011 LILA AUTOMOTIVE GLAZIER, BRYAN 278.01 OBESITY, MORBID (BMI >40) 02/22/2011 LILA AUTOMOTIVE GLAZIER, BRYAN 401.1 HYPERTENSION, BENIGN ESSENTIAL 02/26/2011 TUSHAR [...] JOINT INVOLVING ANKLE AND FOOT 02/26/2011 AFUA FINLYE APRN V70.0 GENERAL MEDICAL EXAM, ROUTINE, AT [...] UNSPECIFIED TYPE NOT STATED UNCONTROLLED 02/26/2011 LILA AUTOMOTIVE GLAZIER, BRYAN 719.47 PAIN IN JOINT INVOLVING ANKLE AND FOOT 02/26/2011 LILA AUTOMOTIVE GLAZIER, BRYAN V70.0 GENERAL MEDICAL EXAM, ROUTINE, AT HEALTH CARE FACILITY 02/26/2011 LILA AUTOMOTIVE GLAZIER, BRYAN 244.9 UNSPECIFIED ACQUIRED HYPOTHYROIDISM 02/26/2011 LILA AUTOMOTIVE GLAZIER, BRYAN 250.00 DIABETES MELLITUS WITHOUT MENTION OF COMPLICATION TYPE II OR UNSPECIFIED TYPE NOT STATED UNCONTROLLED 02/26/2011 LILA AUTOMOTIVE GLAZIER BRYAN 719.47 PAIN IN JOINT INVOLVING ANKLE AND FOOT 02/26/2011 LILA AUTOMOTIVE GLAZIER, BRYAN V70.0 GENERAL MEDICAL EXAM, ROUTINE, AT HEALTH CARE FACILITY 02/26/2011 LILA AUTOMOTIVE GLAZIER, BRYAN 244.9 UNSPECIFIED ACQUIRED HYPOTHYROIDISM 02/26/2011 LILA AUTOMOTIVE GLAZIER, BRYAN 250.00 DIABETES MELLITUS WITHOUT MENTION OF COMPLICATION TYPE II OR UNSPECIFIED TYPE NOT STATED UNCONTROLLED 02/26/2011 LILA CHAUDHRY BRYAN 719.47 PAIN IN JOINT INVOLVING ANKLE AND FOOT 02/26/2011 LILADINA CHAUDHRY, BRYAN V70.0 GENERAL MEDICAL EXAM, ROUTINE, AT HEALTH CARE FACILITY 02/26/2011 LILA AUTOMOTIVE GLAZIER, BRYAN 244.9 UNSPECIFIED ACQUIRED HYPOTHYROIDISM 02/26/2011 LILA AUTOMOTIVE GLAZIER, BRYAN 250.00 DIABETES MELLITUS WITHOUT MENTION OF [...] ROUTINE, AT HEALTH CARE FACILITY 02/26/2011 LILA AUTOMOTIVE GLAZIER, BRYAN 244.9 UNSPECIFIED ACQUIRED HYPOTHYROIDISM 02/26/2011 LILA AUTOMOTIVE GLAZIER, BRYAN 250.00 DIABETES MELLITUS WITHOUT MENTION OF COMPLICATION TYPE II OR UNSPECIFIED TYPE NOT STATED UNCONTROLLED 02/26/2011 LILA AUTOMOTIVE GLAZIER, BRYAN 719.47 PAIN IN JOINT INVOLVING ANKLE AND FOOT 02/26/2011 LILA AUTOMOTIVE GLAZIER, BRYAN V70.0 GENERAL MEDICAL EXAM, ROUTINE, AT HEALTH CARE FACILITY 02/26/2011 LILA RICHA BRYAN 244.9 UNSPECIFIED ACQUIRED HYPOTHYROIDISM 02/26/2011 LILA AUTOMOTIVE GLAZIER, BRYAN 250.00 DIABETES MELLITUS WITHOUT MENTION OF [...] BRYAN 244.9 UNSPECIFIED ACQUIRED HYPOTHYROIDISM 02/26/2011 LILA AUTOMOTIVE GLAZIER, BRYAN 250.00 DIABETES MELLITUS WITHOUT MENTION OF COMPLICATION TYPE II OR UNSPECIFIED TYPE NOT STATED UNCONTROLLED 02/26/2011 LILA AUTOMOTIVE GLAZIER, BRYAN 719.47 PAIN IN JOINT INVOLVING ANKLE AND FOOT 02/26/2011 LILA AUTOMOTIVE GLAZIER, BRYAN V70.0 GENERAL MEDICAL EXAM, ROUTINE, AT [...] ROUTINE, AT HEALTH CARE FACILITY 02/26/2011 LILA AUTOMOTIVE GLAZIER, BRYAN 244.9 UNSPECIFIED ACQUIRED HYPOTHYROIDISM 02/26/2011 LILA AUTOMOTIVE GLAZIER, BRYAN 250.00 DIABETES MELLITUS WITHOUT MENTION OF COMPLICATION TYPE II OR UNSPECIFIED TYPE NOT STATED UNCONTROLLED 02/26/2011 LILA AUTOMOTIVE GLAZIER, BRYAN 719.47 PAIN IN JOINT INVOLVING ANKLE AND FOOT 02/26/2011 LILA AUTOMOTIVE GLAZIER, BRYAN V70.0 GENERAL MEDICAL EXAM, ROUTINE, AT HEALTH CARE FACILITY 02/26/2011 LILA AUTOMOTIVE GLAZIER, BRYAN 244.9 UNSPECIFIED ACQUIRED HYPOTHYROIDISM 02/26/2011 LILA AUTOMOTIVE GLAZIER, BRYAN 250.00 DIABETES MELLITUS WITHOUT MENTION OF COMPLICATION TYPE II OR UNSPECIFIED TYPE NOT STATED UNCONTROLLED 02/26/2011 LILA AUTOMOTIVE GLAZIER, BRYAN 719.47 PAIN IN JOINT INVOLVING ANKLE AND FOOT 02/26/2011 LILA AUTOMOTIVE GLAZIER, BRYAN V70.0 GENERAL MEDICAL EXAM, ROUTINE, AT HEALTH CARE FACILITY 02/26/2011 LILA AUTOMOTIVE GLAZIER, BRYAN 244.9 UNSPECIFIED ACQUIRED HYPOTHYROIDISM 02/26/2011 LILA AUTOMOTIVE GLAZIER, BRYAN 250.00 DIABETES MELLITUS WITHOUT MENTION OF COMPLICATION TYPE II OR UNSPECIFIED TYPE NOT STATED UNCONTROLLED 02/26/2011 LILA AUTOMOTIVE GLAZIER, BRYAN 719.47 PAIN IN JOINT INVOLVING ANKLE AND FOOT 02/26/2011 LILA AUTOMOTIVE GLAZIER, BRYAN V70.0 GENERAL MEDICAL EXAM, ROUTINE, AT HEALTH CARE FACILITY 02/26/2011 LILA AUTOMOTIVE GLAZIER, BRYAN 244.9 UNSPECIFIED ACQUIRED HYPOTHYROIDISM 02/26/2011 LILA AUTOMOTIVE GLAZIER, BRYAN 250.00 DIABETES MELLITUS WITHOUT MENTION OF COMPLICATION TYPE II OR UNSPECIFIED TYPE NOT STATED UNCONTROLLED 02/26/2011 LILA AUTOMOTIVE GLAZIER, BRYAN 719.47 PAIN IN JOINT INVOLVING ANKLE AND FOOT 02/26/2011 BRYAN SHARP APRN V70.0 GENERAL MEDICAL EXAM, ROUTINE, AT HEALTH CARE FACILITY 02/26/2011 BRYAN SHARP APRN 244.9 UNSPECIFIED ACQUIRED HYPOTHYROIDISM 02/26/2011 BRYAN SHARP APRN 250.00 DIABETES MELLITUS WITHOUT MENTION OF COMPLICATION TYPE II OR UNSPECIFIED TYPE NOT STATED UNCONTROLLED 02/26/2011 BRYAN HSARP APRN 719.47 PAIN IN JOINT INVOLVING ANKLE [...] BOSWELL V58.69 MEDICATION HIGH RISK 03/03/2011 FINLEY AUTOMOTIVE GLAZIER, AFUA BOSWELL V58.69 MEDICATION HIGH RISK 03/03/2011 FINLEY RICHA FAUA BOSWELL V58.69 MEDICATION HIGH RISK 03/03/2011 FINELY AUTOMOTIVE GLAZIER, AFUA BOSWELL V58.69 MEDICATION HIGH RISK 03/03/2011 FINLEY RICHA AFUA BOSWELL V58.69 MEDICATION HIGH RISK 03/03/2011 FINLEY AUTOMOTIVE GLAZIER, AFUA BOSWELL V58.69 MEDICATION HIGH RISK 03/03/2011 FINLEY AUTOMOTIVE GLAZIERAFUA V58.69 MEDICATION HIGH RISK 03/03/2011 LILA AUTOMOTIVE GLAZIER, BRYAN V58.69 MEDICATION HIGH RISK 03/03/2011 ALVARO VYAS DO K V58.69 MEDICATION HIGH RISK 03/03/2011 LILA AUTOMOTIVE GLAZIER, BRYAN V58.69 MEDICATION HIGH RISK 03/03/2011 LILA AUTOMOTIVE GLAZIER, BRYAN V58.69 MEDICATION HIGH RISK 03/03/2011 LILA AUTOMOTIVE GLAZIER, BRYAN V58.69 MEDICATION HIGH RISK 03/03/2011 LILA AUTOMOTIVE GLAZIER, BRYAN V58.69 MEDICATION HIGH RISK 03/03/2011 ALVARO VYAS DO K V58.69 MEDICATION HIGH RISK 03/03/2011 LILA AUTOMOTIVE GLAZIER, BRYAN V58.69 MEDICATION HIGH RISK 03/03/2011 LILA AUTOMOTIVE GLAZIER, BRYAN V58.69 MEDICATION HIGH RISK 03/03/2011 LILA AUTOMOTIVE GLAZIER, BRYAN V58.69 MEDICATION HIGH RISK 03/03/2011 LILA AUTOMOTIVE GLAZIER, BRYAN V58.69 MEDICATION HIGH RISK 03/03/2011 LILA AUTOMOTIVE GLAZIER, BRYAN V58.69 MEDICATION HIGH RISK 03/03/2011 ASAEL CHAPMAN ALVARO K V58.69 MEDICATION HIGH RISK 03/03/2011 ASAEL CHAPMAN ALVARO K V58.69 MEDICATION HIGH RISK 03/03/2011 LILA AUTOMOTIVE GLAZIER, BRYAN V58.69 MEDICATION HIGH RISK 03/03/2011 LILA AUTOMOTIVE GLAZIER, BRYAN V58.69 MEDICATION HIGH RISK 03/03/2011 LILA AUTOMOTIVE GLAZIER, BRYAN V58.69 MEDICATION HIGH RISK 03/03/2011 LILA AUTOMOTIVE GLAZIER, BRYAN V58.69 MEDICATION HIGH RISK 03/03/2011 LILA AUTOMOTIVE GLAZIER, BRYAN V58.69 MEDICATION HIGH RISK 03/20/2011 Ot [...] 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 01/19/2013 LILA AUTOMOTIVE GLAZIER, BRYAN 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 01/19/2013 ALVARO VYAS DO 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 01/19/2013 LILA AUTOMOTIVE GLAZIER, BRYAN 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 01/19/2013 LILA AUTOMOTIVE GLAZIER, BRYAN 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 01/19/2013 LILA AUTOMOTIVE GLAZIER, BRYAN 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 01/19/2013 LILA AUTOMOTIVE GLAZIER, BRYAN 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 01/19/2013 ALVARO VYAS DO K 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 01/19/2013 LILA AUTOMOTIVE GLAZIER, BRYAN 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 01/19/2013 LILA AUTOMOTIVE GLAZIER, BRYAN 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 01/19/2013 LILA AUTOMOTIVE GLAZIER, BRYAN 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 01/19/2013 LILA AUTOMOTIVE GLAZIER, BRYAN 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 01/19/2013 LILA AUTOMOTIVE GLAZIER, BRYAN 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 01/19/2013 ALVARO VYAS DO K 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 01/19/2013 ALVARO VYAS DO K 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 01/19/2013 LILA AUTOMOTIVE GLAZIER, BRYAN 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 01/19/2013 LILA AUTOMOTIVE GLAZIER, BRYAN 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 01/19/2013 LILA AUTOMOTIVE GLAZIER, BRYAN 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 01/19/2013 LILA AUTOMOTIVE GLAZIER, BRYAN 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 01/19/2013 LILA AUTOMOTIVE GLAZIER, BRYAN 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 02/08/2013 [...] 965.8 POIS-ANALGES/ ANTIPYR NEC 02/10/2013 Ot 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 02/10/2013 Ot 969.3 POISON- ANTIPSYCHOTIC [...] FINLEY APRN 309.81 AN PTSD 07/18/2013 LILA AUTOMOTIVE GLAZIER, BRYAN 309.81 AN PTSD 07/18/2013 VYAS DO ALVARO K 309.81 AN PTSD 07/18/2013 LILA AUTOMOTIVE GLAZIER, BRYAN 309.81 AN PTSD 07/18/2013 LILA AUTOMOTIVE GLAZIER, BRYAN 309.81 AN PTSD 07/18/2013 LILA AUTOMOTIVE GLAZIER, BRYAN 309.81 AN PTSD 07/18/2013 LILA AUTOMOTIVE GLAZIER, BRYAN 309.81 AN PTSD 07/18/2013 VYAS GEE CHAPMANA K 309.81 AN PTSD 07/18/2013 LILA AUTOMOTIVE GLAZIER, BRYAN 309.81 AN PTSD 07/18/2013 LILA AUTOMOTIVE GLAZIER, BRYAN 309.81 AN PTSD 07/18/2013 LILA AUTOMOTIVE GLAZIER, BRYAN 309.81 AN PTSD 07/18/2013 LILA AUTOMOTIVE GLAZIER, BRYAN 309.81 AN PTSD 07/18/2013 ILLA AUTOMOTIVE GLAZIER, BRYAN 309.81 AN PTSD 07/18/2013 VYAS GEE CHAPMANA K 309.81 AN PTSD 07/18/2013 GEE VYAS DOA K 309.81 AN PTSD 07/18/2013 LILA AUTOMOTIVE GLAZIER, BRYAN 309.81 AN PTSD 07/18/2013 LILA AUTOMOTIVE GLAZIER, BRYAN 309.81 AN PTSD 07/18/2013 LILA AUTOMOTIVE GLAZIER, BRYAN 309.81 AN PTSD 07/18/2013 LILA AUTOMOTIVE GLAZIER, BRYAN 309.81 AN PTSD 07/18/2013 LILA AUTOMOTIVE GLAZIER, BRYAN 309.81 AN PTSD 09/03/2013 AFUA FINLEY APRN 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 09/03/2013 FINLEY AFUA CHAUDHRY 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 09/03/2013 FINLEY AUTOMOTIVE GLAZIERAFUA BundyH 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 09/03/2013 FINLEY AUTOMOTIVE GLAZIERAFUA BundyH 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 09/03/2013 FINLEY AFUA CHAUDHRYH 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 09/03/2013 FINLEY AUTOMOTIVE GLAZIERAFUA BundyH 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 09/03/2013 LILA AUTOMOTIVE GLAZIER, BRYAN 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 09/03/2013 ALVARO VYAS DO K 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 09/03/2013 LILA AUTOMOTIVE GLAZIER, BRYAN 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 09/03/2013 LILA AUTOMOTIVE GLAZIER, BRYAN 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 09/03/2013 LILA AUTOMOTIVE GLAZIER, BRYAN 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 09/03/2013 LILA AUTOMOTIVE GLAZIER, BRYAN 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 09/03/2013 VYAS ALVARO K 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 09/03/2013 LILA AUTOMOTIVE GLAZIER, BRYAN 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 09/03/2013 LILA AUTOMOTIVE GLAZIER, BRYAN 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 09/03/2013LILA AUTOMOTIVE GLAZIER, BRYAN 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 09/03/2013LILA AUTOMOTIVE GLAZIER, BRYAN 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 09/03/2013 LILA AUTOMOTIVE GLAZIER, BRYAN 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 09/03/2013 ASAEL CHAPMAN ALVARO K 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 09/03/2013 YVAS , ALVARO K 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 09/03/2013 LILA AUTOMOTIVE GLAZIER, BRYAN 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 09/03/2013 LILA AUTOMOTIVE GLAZIER, BRYAN 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 09/03/2013LILA AUTOMOTIVE GLAZIER, BRYAN 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 09/03/2013LILA AUTOMOTIVE GLAZIER, BRYAN 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 09/03/2013 LILA AUTOMOTIVE GLAZIER, BRYAN 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 [...] 300.3 AN OBCESS COMP DIS 09/25/2013 LILA AUTOMOTIVE GLAZIER, BRYAN 300.3 AN OBCESS COMP DIS 09/25/2013 VYAS DO, ALVARO K 300.3 AN OBCESS COMP DIS 09/25/2013 LILA AUTOMOTIVE GLAZIER, BRYAN 300.3 AN OBCESS COMP DIS 09/25/2013 LILA AUTOMOTIVE GLAZIER, BRYAN 300.3 AN OBCESS COMP DIS 09/25/2013 LILA AUTOMOTIVE GLAZIER, BRYAN 300.3 AN OBCESS COMP DIS 09/25/2013 LILA AUTOMOTIVE GLAZIER, BRYAN 300.3 AN OBCESS COMP DIS 09/25/2013 VYAS DO, ALVARO K 300.3 AN OBCESS COMP DIS 09/25/2013 LILA AUTOMOTIVE GLAZIER, BRYAN 300.3 AN OBCESS COMP DIS 09/25/2013 LILA AUTOMOTIVE GLAZIER, BRYAN 300.3 AN OBCESS COMP DIS 09/25/2013 LILA AUTOMOTIVE GLAZIER, BRYAN 300.3 AN OBCESS COMP DIS 09/25/2013 LILA AUTOMOTIVE GLAZIER, BRYAN 300.3 AN OBCESS COMP DIS 09/25/2013 LILA AUTOMOTIVE GLAZIER, BRYAN 300.3 AN OBCESS COMP DIS 09/25/2013 VYAS DO, ALVARO K 300.3 AN OBCESS COMP DIS 09/25/2013 VYAS DO, ALVARO K 300.3 AN OBCESS COMP DIS 09/25/2013 LILA AUTOMOTIVE GLAZIER, BRYAN 300.3 AN OBCESS COMP DIS 09/25/2013 LILA AUTOMOTIVE GLAZIER, BRYAN 300.3 AN OBCESS COMP DIS 09/25/2013 LILA AUTOMOTIVE GLAZIER, BRYAN 300.3 AN OBCESS COMP DIS 09/25/2013 LILA AUTOMOTIVE GLAZIER, BRYAN 300.3 AN OBCESS COMP DIS 09/25/2013 [...] DO 296.80 MO BIPOLAR NOS 03/08/2014 LILA AUTOMOTIVE GLAZIER, BRYAN 296.80 MO BIPOLAR NOS 03/08/2014 LILA AUTOMOTIVE GLAZIER, BRYAN 296.80 MO BIPOLAR NOS 03/08/2014 LILA AUTOMOTIVE GLAZIER, BRYAN 296.80 MO BIPOLAR NOS 03/08/2014 LILA AUTOMOTIVE GLAZIER, BRYAN 296.80 MO BIPOLAR NOS 03/08/2014 VYAS DO ALVARO K 296.80 MO BIPOLAR NOS 03/08/2014 LILA AUTOMOTIVE GLAZIER, BRYAN 296.80 MO BIPOLAR NOS 03/08/2014 LILA AUTOMOTIVE GLAZIER, BRYAN 296.80 MO BIPOLAR NOS 03/08/2014 LILA AUTOMOTIVE GLAZIER, BRYAN 296.80 MO BIPOLAR NOS 03/08/2014 LILA AUTOMOTIVE GLAZIER, BRYAN 296.80 MO BIPOLAR NOS 03/08/2014 LILA AUTOMOTIVE GLAZIER, BRYAN 296.80 MO BIPOLAR NOS 03/08/2014 VYAS DO, ALVARO K 296.80 MO BIPOLAR NOS 03/08/2014 VYAS DO, ALVARO K 296.80 MO BIPOLAR NOS 03/08/2014 LILA AUTOMOTIVE GLAZIER, BRYAN 296.80 MO BIPOLAR NOS 03/08/2014 LILA AUTOMOTIVE GLAZIER, BRYAN 296.80 MO BIPOLAR NOS 03/08/2014 LILA AUTOMOTIVE GLAZIER, BRYAN 296.80 MO BIPOLAR NOS 03/08/2014 LILA AUTOMOTIVE GLAZIER, BRYAN 296.80 MO BIPOLAR NOS 03/08/2014 LILA AUTOMOTIVE GLAZIER, BRYAN 296.80 MO BIPOLAR NOS 03/11/2014 FINLEY RICHA AFUA BOSWELL 296.80 MO BIPOLAR NOS 03/11/2014 FINLEY RICHA AFUA BOSWELL 300.02 AN GEN ANXIETY 03/11/2014 FINLEY RICHA AFUA BOSWELL 314.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 03/11/2014 LILA AUTOMOTIVE GLAZIER, BRYAN 296.80 MO BIPOLAR NOS 03/11/2014 LILA AUTOMOTIVE GLAZIER, BRYAN 300.02 AN GEN ANXIETY 03/11/2014 LILA AUTOMOTIVE GLAZIER, BRYAN 314.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 03/11/2014 VYAS GEE CHAPMANA K 296.80 MO BIPOLAR NOS 03/11/2014 VYAS DO ALVARO K 300.02 AN GEN ANXIETY 03/11/2014 VYAS DO ALVARO K 314.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 03/11/2014 LILA AUTOMOTIVE GLAZIER, BRYAN 296.80 MO BIPOLAR NOS 03/11/2014 LILA AUTOMOTIVE GLAZIER, BRYAN 300.02 AN GEN ANXIETY 03/11/2014 LILA AUTOMOTIVE GLAZIER, BRYAN 314.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 03/11/2014 LILA AUTOMOTIVE GLAZIER, BRYAN 296.80 MO BIPOLAR NOS 03/11/2014 LILA AUTOMOTIVE GLAZIER, BRYAN 300.02 AN GEN ANXIETY 03/11/2014 LILA AUTOMOTIVE GLAZIER, BRYAN 314.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 03/11/2014 LILA AUTOMOTIVE GLAZIER, BRYAN 296.80 MO BIPOLAR NOS 03/11/2014 LILA AUTOMOTIVE GLAZIER, BRYAN 300.02 AN GEN ANXIETY 03/11/2014 LILA AUTOMOTIVE GLAZIER, BRYAN 314.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 03/11/2014 LILA AUTOMOTIVE GLAZIER, BRYAN 296.80 MO BIPOLAR NOS 03/11/2014 LILA AUTOMOTIVE GLAZIER, BRYAN 300.02 AN GEN ANXIETY 03/11/2014 LILA AUTOMOTIVE GLAZIER, BRYAN 314.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 03/11/2014 GEE VYAS DOA K 296.80 MO BIPOLAR NOS 03/11/2014 VYAS GEE CHAPMANA K 300.02 AN GEN ANXIETY 03/11/2014 VYAS GEE CHAPMANA K 314.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 03/11/2014 LILA AUTOMOTIVE GLAZIER, BRYAN 296.80 MO BIPOLAR NOS 03/11/2014 LILA AUTOMOTIVE GLAZIER, BRYAN 300.02 AN GEN ANXIETY 03/11/2014 LILA AUTOMOTIVE GLAZIER, BRYAN 314.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 03/11/2014 LILA AUTOMOTIVE GLAZIER, BRYAN 296.80 MO BIPOLAR NOS 03/11/2014 LILA AUTOMOTIVE GLAZIER, BRYAN 300.02 AN GEN ANXIETY 03/11/2014 LILA AUTOMOTIVE GLAZIER, BRYAN 314.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 03/11/2014 LILA AUTOMOTIVE GLAZIER, BRYAN 296.80 MO BIPOLAR NOS 03/11/2014 LILA AUTOMOTIVE GLAZIER, BRYAN 300.02 AN GEN ANXIETY 03/11/2014 LILA AUTOMOTIVE GLAZIER, BRYAN 314.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 03/11/2014 LILA AUTOMOTIVE GLAZIER, BRYAN 296.80 MO BIPOLAR NOS 03/11/2014 LILA AUTOMOTIVE GLAZIER, BRYAN 300.02 AN GEN ANXIETY 03/11/2014 LILA AUTOMOTIVE GLAZIER, BRYAN 314.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 03/11/2014 LILA AUTOMOTIVE GLAZIER, BRYAN 296.80 MO BIPOLAR NOS 03/11/2014 LILA AUTOMOTIVE GLAZIER, BRYAN 300.02 AN GEN ANXIETY 03/11/2014 LILA AUTOMOTIVE GLAZIER, BRYAN 314.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 03/11/2014 GEE VYAS DOA K 296.80 MO BIPOLAR NOS 03/11/2014 VYAS GEE CHAPMANA K 300.02 AN GEN ANXIETY 03/11/2014 VYAS GEE CHAPMANA K 314.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 03/11/2014 ALVARO VYAS DO K 296.80 MO BIPOLAR NOS 03/11/2014 ASAEL CHAPMAN ALVARO K 300.02 AN GEN ANXIETY 03/11/2014 ASAEL CHAPMAN ALVARO K 314.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 03/11/2014 LILA AUTOMOTIVE GLAZIER, BRYAN 296.80 MO BIPOLAR NOS 03/11/2014 LILA AUTOMOTIVE GLAZIER, BRYAN 300.02 AN GEN ANXIETY 03/11/2014 LILA AUTOMOTIVE GLAZIER, BRYAN 314.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 03/11/2014 LILA AUTOMOTIVE GLAZIER, BRYAN 296.80 MO BIPOLAR NOS 03/11/2014 LILA AUTOMOTIVE GLAZIER, BRYAN 300.02 AN GEN ANXIETY 03/11/2014 LILA AUTOMOTIVE GLAZIER, BRYAN 314.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 03/11/2014 LILA AUTOMOTIVE GLAZIER, BRYAN 296.80 MO BIPOLAR NOS 03/11/2014 LILA AUTOMOTIVE GLAZIER, BRYAN 300.02 AN GEN ANXIETY 03/11/2014 LILA AUTOMOTIVE GLAZIER, BRYAN 314.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 03/11/2014 LILA AUTOMOTIVE GLAZIER, BRYAN 296.80 MO BIPOLAR NOS 03/11/2014 LILA AUTOMOTIVE GLAZIER, BRYAN 300.02 AN GEN ANXIETY 03/11/2014 LILA AUTOMOTIVE GLAZIER, BRYAN 314.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 03/11/2014 LILA AUTOMOTIVE GLAZIER, BRYAN 296.80 MO BIPOLAR NOS 03/11/2014 LILA AUTOMOTIVE GLAZIER, BRYAN 300.02 AN GEN ANXIETY 03/11/2014 LILA AUTOMOTIVE GLAZIER, BRYAN 314.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 05/02/2014 ESAU BERRY DO Ot 250.00 DIAB [place] WO COMPL, TYPE II OR UNSPEC TY 05/02/2014 ESAU BERRY DO Ot 575.11 CHRONIC CHOLECYSTITIS 06/05/2014 LILA AUTOMOTIVE GLAZIER, BRYAN 295.11 P SCHIZO DISORG SUBCHRONIC 06/05/2014 LILA AUTOMOTIVE GLAZIER, BRYAN 295.11 P SCHIZO DISORG SUBCHRONIC 06/05/2014 LILA AUTOMOTIVE GLAZIER, BRYAN 295.11 P SCHIZO DISORG SUBCHRONIC 06/05/2014 LILA AUTOMOTIVE GLAZIER, BRYAN 295.11 P SCHIZO DISORG SUBCHRONIC 06/05/2014 LILA AUTOMOTIVE GLAZIER, BRYAN 295.11 P SCHIZO DISORG SUBCHRONIC 06/05/2014 ALVARO VYAS DO K 295.11 P SCHIZO DISORG SUBCHRONIC 06/05/2014 ALVARO VYAS DO 295.11 P SCHIZO DISORG SUBCHRONIC 06/05/2014 LILA AUTOMOTIVE GLAZIER, BRYAN 295.11 P SCHIZO DISORG SUBCHRONIC 06/05/2014 LILA AUTOMOTIVE GLAZIER, BRYAN 295.11 P SCHIZO DISORG SUBCHRONIC 06/05/2014 LILA AUTOMOTIVE GLAZIER, BRYAN 295.11 P SCHIZO DISORG SUBCHRONIC 06/05/2014 LILA AUTOMOTIVE GLAZIER, BRYAN 295.11 P SCHIZO DISORG SUBCHRONIC 06/05/2014 LILA AUTOMOTIVE GLAZIER, BRYAN 295.11 P SCHIZO DISORG SUBCHRONIC 06/19/2014 TANYA GONZALEZ AUTOMOTIVE GLAZIER Ot 784.0 HEADACHE 07/14/2014 DAX GUERRA, DARRICK Fiore Ot 346.90 MIGRAINE UNSPECIFIED W/O INTRACT MGRN W/ 09/18/2014 ADAIR LUCERO DIRECTOR DIGITAL SALES Ot 250.00 09/18/2014 ADAIR LUCERO DIRECTOR DIGITAL SALES Ot V58.67 10/07/2014 ADAIR LUCERO DIRECTOR DIGITAL SALES Ot 250.00 10/07/2014 ADAIR LUCERO DIRECTOR DIGITAL SALES Ot V58.67 12/06/2014 OLGA LUCERO MD R [...] 12/06/2014 OLGA LUCERO MD R Ot V06.1 [id number], COMBINED [ 12/06/2014 OLGA LUCERO MD R Ot V58.67 LONG-TERM (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 INSULIN 06/12/2015 GAURANG STANTON DO Ot 339.12 CHRONIC TENSION TYPE HEADACHE 06/12/2015 GAURANG STANTON DO Ot 784.0 HEADACHE 07/30/2015 JAZMINE GUERRA, OLGA R Ot 786.2 08/05/2015 JAZMINE GUERRA, OLGA R Ot 786.2 08/11/2015 JAZMINE GUERRA, OLGA R Ot R19.7 08/19/2015 ADAIR LUCERO DIRECTOR D[employer]ITAL SALES Ot E11.9 09/01/2015 ADAIR LUCERO DIRECTOR DIGITAL SALES Ot E11.9 09/23/2015 JAZMINE GUERRA, OLGA R [...] GUERRA, OLGA R Ot 719.7 01/29/2016 TUSHARAFUA DIRECTOR DIGITAL SALES Ot V58.69 01/29/2016 TUSHARAFUA DIRECTOR DIGITAL SALES Ot V58.83 01/29/2016 JAZMINE ADAIR Kya DIRECTOR DIGITAL SALES Ot 250.00 01/29/2016 JAZMINE ADAIR Boland DIRECTOR DIGITAL SALES Ot 244.9 01/29/2016 LIZZIE LUCEROAN Kya DIRECTOR DIGITAL SALES Ot 250.00 01/29/2016 JAZMINE GUERRA, OLGA R Ot 571.8 01/29/2016 JAZMINE GUERRA, OLGA R Ot 789.01 01/29/2016 JAZMIEN GUERRA, OLGA R Ot 789.01 01/29/2016 JAZMINE GUERRA, OLGA R Ot 793.3 01/29/2016 [place] ESAU CHAPMAN Ot 575.11 01/29/2016 [facility]29[facility] V74.8 01/29/2016 JAZMINE ADAIR Kya DIRECTOR DIGITAL SALES Ot 250.01 01/29/2016 JAZMINE ADAIR Kya DIRECTOR DIGITAL SALES Ot 250.00 01/29/2016 ADAIR LUCERO DIRECTOR DIGITAL SALES Ot V58.67 01/29/2016 JAZMINE GUERRA, OLGA R Ot 786.2 01/29/2016 ADAIR LUCERO DIRECTOR DIGITAL SALES Ot E11.9 01/29/2016 SUYAPA GUERRA, JEAN-CLAUDEAASAHRA Ot [...] PLACE IN S[place] 05/26/2016 ROMY GAURANG K Ot Y99.8 OTHER [...] 719.7 DIFFICULTY IN WALKING 06/04/2016 AFUA FINLEY DIRECTOR DIGITAL SALES Ot V58.69 OT MED,LT,CURRENT USE 06/04/2016 AFUA FINLEY DIRECTOR DIGITAL SALES Ot V58.83 ENCOUNTER FOR THERAPEUTIC DRUG MONITORIN 06/04/2016 ADAIR LUCERO DIRECTOR DIGITAL SALES Ot 250.00 DIAB [place] WO COMPL, TYPE II OR UNSPEC TY 06/04/2016 ADAIR LUCERO DIRECTOR DIGITAL SALES Ot 244.9 HYPOTHYROIDISM NOS 06/04/2016 ADAIR LUCERO DIRECTOR DIGITAL SALES Ot 250.00 DIAB [place] WO COMPL, TYPE [...] V74.8 SCREEN-BACTERIAL DIS NEC 06/04/2016 ADAIR LUCERO DIRECTOR DIGITAL SALES Ot 250.01 DIAB [place] WO COMPL, TYPE I [JUVENILE TYP 06/04/2016 ADAIR LUCERO DIRECTOR DIGITAL SALES Ot 250.00 DIAB [place] WO COMPL, TYPE [...] N88.8 OTHER SPECIFIED NONINFLAMMATORY DISORDER 06/10/2016 OLGA ULCERO MD R Ot M25.551 PAIN IN RIGHT [...] R Ot 592.0 CALCULUS OF KIDNEY 09/23/2016 LOGA LUCERO MD R Ot 719.7 DIFFICULTY IN WALKING 09/23/2016 AFUA FINLEY DIRECTOR D[employer]ITAL SALES Ot V58.69 OT MED,LT,CURRENT USE 09/23/2016 AFUA FINLEY Ot V58.83 ENCOUNTER FOR THERAPEUTIC DRUG MONITORIN 09/23/2016 ADAIR LUCERO DIRECTOR DIGITAL SALES Ot 250.00 DIAB [place] WO COMPL, TYPE II OR UNSPEC TY 09/23/2016 ADAIR LUCERO DIRECTOR DIGITAL SALES Ot 244.9 HYPOTHYROIDISM NOS 09/23/2016 ADAIR LUCERO DIRECTOR DIGITAL SALES Ot 250.00 DIAB [place] WO COMPL, TYPE [...] TYPE I [JUVENILE TYP 09/23/2016 ADAIR LUCERO DIRECTOR DIGITAL SALES Ot 250.00 DIAB [place] WO COMPL, TYPE [...] DIABETES MELLITUS WITHOUT COMPLIC 09/23/2016 ADAIR LUCERO DIRECTOR DIGITAL SALES Ot Z79.4 LENS BLOCKER (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 INSULIN 09/24/2016 ADAIR LUCERO DIRECTOR DIGITAL SALES Ot E11.9 TYPE 2 DIABETES MELLITUS WITHOUT COMPLIC 09/24/2016 ADAIR LUCEROP Ot Z79.4 LENS BLOCKER (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 INSULIN 09/29/2016 ADAIR LUCERO DIRECTOR DIGITAL SALES Ot E11.9 TYPE 2 DIABETES MELLITUS WITHOUT COMPLIC 09/29/2016 ADAIR LUCEROP Ot Z79.4 LENS BLOCKER (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 INSULIN 10/21/2016 SEGLIE, ADAIR M DIRECTOR DIGITAL SALES Ot E11.9 TYPE 2 DIABETES MELLITUS WITHOUT COMPLIC 10/21/2016 ADAIR LUCERO DIRECTOR DIGITAL SALES Ot Z79.4 ALF (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 INSULIN 10/26/2016 ADAIR LUCERO DIRECTOR DIGITAL SALES Ot E11.9 TYPE 2 DIABETES MELLITUS WITHOUT COMPLIC 10/26/2016 ADAIR LUCERO DIRECTOR DIGITAL SALES Ot Z79.4 ALF (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 INSULIN 01/25/2017 FRANCISCO ALAN DO Ot E11.65 TYPE 2 DIABETES MELLITUS WITH HYPERGLYCE 01/25/2017 FRANCISCO ALAN DO Ot Z79.4 ALF (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 INSULIN 01/25/2017 FRANCISCO ALAN DO Ot Z79.84 LENS BLOCKER (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 ORAL HYPOGLYC 01/25/2017 FRANCISCO ALAN DO Ot Z79.899 OTHER ALF (CURRENT) DRUG THERAPY 01/26/2017 FRANCISCO ALAN DO Ot E11.65 TYPE 2 DIABETES MELLITUS WITH HYPERGLYCE 01/26/2017 FRANCISCO ALAN DO Ot Z79.4 LENS BLOCKER (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 INSULIN 01/26/2017 FRANCISCO ALAN DO Ot Z79.84 LENS BLOCKER (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 ORAL HYPOGLYC 01/26/2017 FRANCISCO ALAN DO Ot Z79.899 OTHER LENS BLOCKER (CURRENT) DRUG THERAPY 03/24/2017 Ot 250.00 DIAB [...] Ot H20.9 UNSPECIFIED IRIDOCYCLITIS 05/03/2017 JOHN LEE MD Ot H57.11 OCULAR PAIN, RIGHT EYE 05/03/2017 JOHN LEE MD Ot K21.9 GASTRO-ESOPHAGEAL REFLUX DISEASE WITHOUT 05/03/2017 JOHN LEE MD Ot Z79.4 LENS BLOCKER (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 INSULIN 05/03/2017 JOHN LEE MD Ot Z79.84 ALF (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 ORAL HYPOGLYC 05/03/2017 JOHN [...] WITHOUT 05/03/2017 JOHN LEE MD Ot Z79.4 LENS BLOCKER (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 INSULIN 05/03/2017 JOHN LEE MD Ot Z79.84 LENS BLOCKER (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 ORAL HYPOGLYC 05/03/2017 JOHN [...] UNSPECIFIED 07/09/2017 IVORY DICKSON MD Ot Z79.4 ALF (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 INSULIN 07/09/2017 IVORY DICKSON MD Ot Z79.84 ALF (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 ORAL HYPOGLYC 07/09/2017 IVORY [...] 719.7 DIFFICULTY IN WALKING 07/09/2017 AFUA FINLEY DIRECTOR D[employer]ITAL SALES Ot V58.69 OTH MED,LT,CURRENT USE 07/09/2017 AFUA FINLEY DIRECTOR DIGITAL SALES Ot V58.83 ENCOUNTER FOR THERAPEUTIC DRUG MONITORIN 07/09/2017 ADAIR LUCERO DIRECTOR DIGITAL SALES Ot 250.00 DIAB [place] WO COMPL, TYPE II OR UNSPEC TY 07/09/2017 ADAIR LUCERO DIRECTOR DIGITAL SALES Ot 244.9 HYPOTHYROIDISM NOS 07/09/2017 ADAIR LUCERO DIRECTOR DIGITAL SALES Ot 250.00 DIAB [place] WO COMPL, TYPE [...] V58.67 LONG-TERM (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 INSULIN 07/09/2017 OLGA LUCERO MD R Ot 786.2 COUGH 07/09/2017 [...] WITHOUT COMPLIC 07/09/2017 ADAIR LUCERO Ot Z79.4 ALF (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 INSULIN 07/11/2017 IVORY DICKSON [...] UNSPECIFIED 07/11/2017 IVORY DICKSON MD Ot Z79.4 ALF (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 INSULIN 07/11/2017 IVORY DICKSON MD Ot Z79.84 LENS BLOCKER (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 ORAL HYPOGLYC 07/11/2017 IVORY [...] PAIN 07/29/2017 IVORY DICKSON MD Ot Z79.4 LENS BLOCKER (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 INSULIN 07/29/2017 IVORY DICKSON [...] V58.69 OTH MED,LT,CURRENT USE 12/23/2017 AFUA FINLEY DIRECTOR DIGITAL SALES Ot V58.83 ENCOUNTER FOR THERAPEUTIC DRUG MONITORIN [...] V74.8 SCREEN-BACTERIAL DIS NEC 12/23/2017 ADAIR LUCERO DIRECTOR DIGITAL SALES Ot 250.01 DIAB [place] WO COMPL, TYPE [...] MD R Ot R19.7 DIARRHEA, UNSPECIFIED 12/23/2017 JAZMINE GUERRA, OLGA R Ot E03.9 HYPOTHYROIDISM, UNSPECIFIED 12/23/2017 OLGA LUCERO MD R Ot E03.9 HYPOTHYROIDISM, UNSPECIFIED 12/23/2017 JAZMINE GUERRA, OLGA R Ot M25.551 PAIN IN RIGHT HIP 12/23/2017 JAZMINE GUERRA, OLGA R Ot M47.894 OTHER SPONDYLOSIS, THORACIC REGION 12/23/2017 JAZMINE GUERRA, OLGA R Ot 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, 12/23/2017 JAZMINE GUERRA, OLGA R Ot M54.16 RADICULOPATHY, LUMBAR REGION 12/23/2017 JAZMINE GUERRA, OLGA R Ot N83.20 UNSPECIFIED OVARIAN CYSTS 12/23/2017 OLGA LUCERO MD R Ot N88.8 OTHER SPECIFIED NONINFLAMMATORY DISORDER 12/23/2017 ADAIR LUCERO Ot E11.9 TYPE 2 DIABETES MELLITUS WITHOUT COMPLIC 12/23/2017 ADAIR LUCERO Ot Z79.4 ALF (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 INSULIN 12/23/2017 JAZMINE GUERRA, OLGA R Ot 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, UNSPEC 12/23/2017 TINY ALMENDAREZ AUTOMOTIVE GLAZIER Ot E03.9 HYPOTHYROIDISM, UNSPECIFIED 12/23/2017 TINY ALMENDAREZ AUTOMOTIVE GLAZIER Ot E10.9 TYPE 1 DIABETES MELLITUS WITHOUT COMPLIC 12/27/2017 TINY ALMENDAREZ AUTOMOTIVE GLAZIER Ot E03.9 HYPOTHYROIDISM, UNSPECIFIED 12/27/2017 TINY ALMENDAREZ AUTOMOTIVE GLAZIER Ot E10.9 TYPE 1 DIABETES MELLITUS WITHOUT COMPLIC 12/27/2017 TINY ALMENDAREZ AUTOMOTIVE GLAZIER Ot R42 DIZZINESS AND GIDDINESS 12/29/2017 ROMY DO GAURANG K Ot E03.9 HYPOTHYROIDISM, UNSPECIFIED 12/29/2017 ROMY DO, GAURANG K Ot E11.9 TYPE 2 DIABETES MELLITUS WITHOUT COMPLIC 12/29/2017 ROMY DO GAURANG K Ot F17.210 NICOTINE DEPENDENCE, CIGARETTES, UNCOMPL 12/29/2017 ROMY DO GAURANG K Ot F20.9 SCHIZOPHRENIA, UNSPECIFIED 12/29/2017 ROMY DO GAURANG K Ot F31.9 BIPOLAR DISORDER, UNSPECIFIED 12/29/2017 ROMY DO GAURANG K Ot F41.9 ANXIETY DISORDER, UNSPECIFIED 12/29/2017 ROMY , GAURANG K Ot F90.9 ATTENTION-DEFICIT HYPERACTIVITY DISORDER 12/29/2017 ROMY , GAURANG K Ot G43.909 MIGRAINE, UNSP, NOT INTRACTABLE, WITHOUT 12/29/2017 ROMY , GAURANG K Ot K21.9 GASTRO-ESOPHAGEAL REFLUX DISEASE WITHOUT 12/29/2017 ROMY , GAURANG K Ot K42.9 UMBILICAL HERNIA WITHOUT OBSTRUCTION OR 12/29/2017 ROMY , GAURANG K Ot K59.00 CONSTIPATION, UNSPECIFIED 12/29/2017 ROMY , GAURANG K Ot R10.10 UPPER ABDOMINAL PAIN, UNSPECIFIED 12/29/2017 ROMY , GAURANG K Ot Z79.4 LENS BLOCKER (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 INSULIN 12/29/2017 ROMY GAURANG K Ot Z79.52 LENS BLOCKER (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 SYSTEMIC STER 12/29/2017 ROMY , GAURANG K Ot Z88.0 ALLERGY STATUS TO PENICILLIN 12/29/2017 ROMY GAURANG K Ot Z88.1 ALLERGY STATUS TO OTHER ANTIBIOTIC AGENT 12/29/2017 ROMY GAURANG K Ot Z90.49 ACQUIRED ABSENCE OF OTHER SPECIFIED PART 01/13/2018 TINY ALMENDAREZ APRN Ot E03.9 HYPOTHYROIDISM, UNSPECIFIED 01/13/2018 TINY ALEMNDAREZ APRN Ot E10.9 TYPE 1 DIABETES MELLITUS WITHOUT COMPLIC 01/13/2018 TINY ALMENDAREZ AUTOMOTIVE GLAZIER Ot R42 DIZZINESS AND GIDDINESS Procedures Code [place] [address] THERAPUTIC INJ SQ/IM 12/13/2012 52811 THERAPUTIC INJ SQ/IM 01/16/2013 95600 THERAPUTIC INJ SQ/IM 01/16/2013 62170 PSYCH PHARM MGMT 01/26/2013 43492 THERAPUTIC INJ SQ/IM 02/09/2013 03256 THERAPUTIC INJ SQ/IM 03/12/2013 75066 THERAPUTIC INJ SQ/IM 03/12/2013 38001 THERAPUTIC INJ SQ/IM 04/10/2013 J1631 Haldol Decanoate 100 mg/mL Solution 04/11/2013 22652 THERAPUTIC INJ SQ/IM 06/12/2013 63902 THERAPUTIC INJ SQ/IM 07/18/2013 66664 CMP 11/27/2013 37314 LIPID PANEL 11/27/2013 14143 IMIPRAMINE 11/27/2013 19250 CBC 11/27/2013 78782 THERAPUTIC INJ SQ/IM 01/10/2014 45.16 ESOPHAGOGASTRODUODENOSCOPY [ EGD] W/CLOSE 02/07/2014 03625 THERAPUTIC INJ SQ/IM 02/08/2014 51357 THERAPUTIC INJ SQ/IM 04/05/2014 71555 THERAPUTIC INJ SQ/IM 05/07/2014 69070 THERAPUTIC INJ SQ/IM 06/05/2014 14446 THERAPUTIC INJ SQ/IM 06/05/2014 35643 IMMUNOTHERAPY, ONE INJECTION 07/01/2014 95659 THERAPUTIC INJ SQ/IM 07/09/2014 97706 THERAPUTIC INJ SQ/IM 08/07/2014 21173 THERAPUTIC INJ SQ/IM 09/06/2014 34721 THERAPUTIC INJ SQ/IM 10/10/2014 87312 THERAPUTIC INJ SQ/IM 11/07/2014 53741 THERAPUTIC INJ SQ/IM 01/15/2015 Results Test Result [...] culture - 05/25/16 22:45 Bacterial urine culture [id number] [facility] COLONY COUNT <10,000 NRG FTX;REPORTABLE SENSITIVITIES REPORTED AT 0742, 06-01-16 [facility] Bacterial susceptibility panel - 05/25/16 22:45 [...] susceptibility test by minimum inhibitory concentration - [facility] Bacterial susceptibility panel - 05/25/16 22:45 [...] susceptibility test by minimum inhibitory concentration 2 [facility] Comprehensive metabolic panel - 09/23/16 14:56 [...] measurement by glucometer (mass/volume) 341 mg/dL 70-110 CBC With Differential/Platelet - 06/20/17 15:03 WBC 10.6 x10E3/uL 3.4-10.8 RBC 5.28 x10E6/uL 3.77-5.28 Hemoglobin 15.2 g/dL 11.1-15.9 Hematocrit 44.0 % 34.0-46.6 MCV 83 fL 79-97 MCH 28.8 pg 26.6-33.0 MCHC 34.5 g/dL 31.5-35.7 RDW 13.6 % 12.3-15.4 Platelets 261 x10E3/uL 150-379 Neutrophils 46 % Lymphs 42 % Monocytes 8 % Eos 4 % Basos 0 % Neutrophils (Absolute) 4.8 x10E3/uL 1.4-7.0 Lymphs (Absolute) 4.5 x10E3/uL 0.7-3.1 Monocytes(Absolute) 0.8 x10E3/uL 0.1-0.9 Eos (Absolute) 0.5 x10E3/uL 0.0-0.4 Baso (Absolute) 0.0 x10E3/uL 0.0-0.2 Immature Granulocytes 0 % Immature Grans (Abs) 0.0 x10E3/uL 0.0-0.1 Comp. Metabolic Panel (14) - 06/20/17 15:03 Glucose, Serum 122 mg/dL 65-99 BUN 16 mg/dL 6-20 Creatinine, Serum 0.67 mg/dL 0.57-1.00 eGFR If NonAfricn Am 113 mL/min/1.73 >59 eGFR If Africn Am 131 mL/min/1.73 >59 BUN/Creatinine Ratio 24 9-23 Sodium, Serum 141 mmol/L 134-144 Potassium, Serum 4.3 mmol/L 3.5-5.2 Chloride, Serum 104 mmol/L 96-106 Carbon Dioxide, Total 19 mmol/L 18-29 Calcium, Serum 9.6 mg/dL 8.7-10.2 Protein, Total, Serum 6.2 g/dL 6.0-8.5 Albumin, Serum 4.0 g/dL 3.5-5.5 Globulin, Total 2.2 g/dL 1.5-4.5 A/G Ratio 1.8 1.2-2.2 Bilirubin, Total 0.2 mg/dL 0.0-1.2 Alkaline Phosphatase, S 131 IU/L 39-117 AST (SGOT) 21 IU/L 0-40 ALT (SGPT) 26 IU/L 0-32 Lipid Panel - 06/20/17 15:03 Cholesterol, Total 189 mg/dL 100-199 Triglycerides 207 mg/dL 0-149 HDL Cholesterol 32 mg/dL >39 VLDL Cholesterol Naren 41 mg/dL 5-40 LDL Cholesterol Calc 116 mg/dL 0-99 Prolactin - 06/20/17 15:03 Prolactin 148.6 ng/mL 4.8-23.3 LIPID PANEL - 06/20/17 15:03 Cholesterol, Total 189 mg/dL 100-199 Triglycerides 207 mg/dL 0-149 HDL Cholesterol 32 mg/dL >39 VLDL Cholesterol Naren 41 mg/dL 5-40 LDL Cholesterol Calc 116 mg/dL 0-99 CMP - 06/20/17 15:03 Glucose, Serum 122 mg/dL 65-99 BUN 16 mg/dL 6-20 Creatinine, Serum 0.67 mg/dL 0.57-1.00 eGFR If NonAfricn Am 113 mL/min/1.73 >59 eGFR If Africn Am 131 mL/min/1.73 >59 BUN/Creatinine Ratio 24 9-23 Sodium, Serum 141 mmol/L 134-144 Potassium, Serum 4.3 mmol/L 3.5-5.2 Chloride, Serum 104 mmol/L 96-106 Carbon Dioxide, Total 19 mmol/L 18-29 Calcium, Serum 9.6 mg/dL 8.7-10.2 Protein, Total, Serum 6.2 g/dL 6.0-8.5 Albumin, Serum 4.0 g/dL 3.5-5.5 Globulin, Total 2.2 g/dL 1.5-4.5 A/G Ratio 1.8 1.2-2.2 Bilirubin, Total 0.2 mg/dL 0.0-1.2 Alkaline Phosphatase, S 131 IU/L 39-117 AST (SGOT) 21 IU/L 0-40 ALT (SGPT) 26 IU/L 0-32 Capillary blood glucose measurement by glucometer (mass/volume) [...] urinalysis with reflex to culture NO NRG PROLACTIN - 11/18/17 10:18 PROLACTIN 61.7 ng/mL NRG Complete blood count (CBC) with automated [...] -5.6 MEAN BLOOD GLUCOSE 387 % <=126 Complete urinalysis with reflex to culture - 12/27/17 02:33 Urine color determination YELLOW NRG Urine clarity determination SLIGHTLY CLOUDY NRG Urine pH measurement by test strip 7 5-9 Specific gravity of urine by test strip 1.030 1.016- 1.022 Urine protein assay by test strip, semi-quantitative NEGATIVE NEGATIVE Urine glucose detection by automated test strip 4+ NEGATIVE Erythrocytes detection in urine sediment by light microscopy NEGATIVE NEGATIVE Urine ketones detection by automated test [...] detection in urine sediment by light microscopy 25-50 NRG Crystals detection in urine sediment by light microscopy NONE NRG Casts detection in urine sediment by light microscopy NONE NRG Mucus detection in urine sediment by light microscopy NEGATIVE NRG Complete urinalysis with reflex to culture NO NRG Yeast detection in urine sediment by light microscopy FEW NRG Urine drug screening test - 12/27/17 02:33 Urine phencyclidine detection by screening method NEGATIVE NEGATIVE Urine benzodiazepines detection by screening method NEGATIVE NEGATIVE Urine cocaine detection NEGATIVE NEGATIVE Urine amphetamines detection by screening method NEGATIVE NEGATIVE Urine methamphetamine detection by screening method NEGATIVE NEGATIVE Urine cannabinoids detection by screening method NEGATIVE NEGATIVE Urine opiates detection by screening method POSITIVE NEGATIVE Urine barbiturates detection NEGATIVE NEGATIVE Screening urine tricyclic antidepressants detection NEGATIVE NEGATIVE Urine methadone detection by screening method NEGATIVE NEGATIVE Urine oxycodone detection NEGATIVE NEGATIVE Urine propoxyphene detection NEGATIVE NEGATIVE Capillary blood glucose measurement by glucometer (mass/volume) - 12/27/17 02: 38 Capillary blood glucose measurement by glucometer (mass/volume) 496 mg/dL 70-110 Complete blood count (CBC) with automated white blood cell (WBC) differential - 12/27/17 02:40 Blood leukocytes automated count (number/volume) 10.0 10*3/uL 4.3-11.0 Blood erythrocytes automated count (number/volume) 5.17 10*6/uL 4.35-5.85 Venous blood hemoglobin measurement (mass/volume) 15.4 g/dL 11.5-16.0 Blood hematocrit (volume fraction) 44 % 35-52 Automated erythrocyte mean corpuscular volume 84 [foz_us] 80-99 Automated erythrocyte mean corpuscular hemoglobin (mass per erythrocyte) 30 pg 25-34 Automated erythrocyte mean corpuscular hemoglobin concentration measurement ( mass/volume) 35 g/dL 32-36 Automated erythrocyte distribution width ratio 13.0 % 10.0-14.5 Automated blood platelet count (count/volume) 205 10*3/uL 130-400 Automated blood platelet mean volume measurement 10.6 [foz_us] 7.4-10.4 Automated blood neutrophils/100 leukocytes 46 % 42-75 Automated blood lymphocytes/100 leukocytes 42 % 12-44 Blood monocytes/100 leukocytes 8 % 0-12 Automated blood eosinophils/100 leukocytes 3 % 0-10 Automated blood basophils/100 leukocytes 1 % 0-10 Blood neutrophils automated count (number/volume) 4.6 10*3 1.8-7.8 Blood lymphocytes automated count (number/volume) 4.2 10*3 1.0-4.0 Blood monocytes automated count (number/volume) 0.8 10*3 0.0-1.0 Automated eosinophil count 0.3 10*3/uL 0.0-0.3 Automated blood basophil count (count/volume) 0.1 10*3/uL 0.0-0.1 Comprehensive metabolic panel - 12/27/17 02:40 Serum or plasma sodium measurement (moles/volume) 132 mmol/L 135-145 Serum or plasma potassium measurement (moles/volume) 4.4 mmol/L 3.6-5.0 Serum or plasma chloride measurement (moles/volume) 94 mmol/L 98-107 Carbon dioxide 22 mmol/L 21-32 Serum or plasma anion gap determination (moles/volume) 16 mmol/L 5-14 Serum or plasma urea nitrogen measurement (mass/volume) 20 mg/dL 7-18 Serum or plasma creatinine measurement (mass/volume) 0.99 mg/dL 0.60-1.30 Serum or plasma urea nitrogen/creatinine mass ratio 20 NRG Serum or plasma creatinine measurement with calculation of estimated glomerular filtration rate > NRG Serum or plasma glucose measurement (mass/volume) 533 mg/dL 70-105 Serum or plasma calcium measurement (mass/volume) 9.6 mg/dL 8.5-10.1 Serum or plasma total bilirubin measurement (mass/volume) 0.3 mg/dL 0.1-1.0 Serum or plasma alkaline phosphatase measurement (enzymatic activity/volume) 117 U/L 40-136 Serum or plasma aspartate aminotransferase measurement (enzymatic activity/ volume) 21 U/L 5-34 Serum or plasma alanine aminotransferase measurement (enzymatic activity/volume ) 34 U/L 0-55 Serum or plasma protein measurement (mass/volume) 7.5 g/dL 6.4-8.2 Serum or plasma albumin measurement (mass/volume) 4.4 g/dL 3.2-4.5 Serum or plasma amylase measurement (enzymatic activity/volume) - 12/27/17 02: 40 Serum or plasma amylase measurement (enzymatic activity/volume) 44 U /L 25-125 Lipase - 12/27/17 02:40 Lipase 50 U/L 8-78 Serum or plasma ethanol measurement (mass/volume) - 12/27/17 02:40 Serum or plasma ethanol measurement (mass/volume) < mg/dL <10 Arterial blood gas measurement - 12/27/17 03:38 Blood pCO2 40 mm[Hg] 35-45 Blood pO2 74 mm[Hg] 79-93 Arterial blood bicarbonate measurement (moles/volume) 25 mmol/L 23-27 Arterial blood base excess by calculation 0.4 mmol/L -2.5 -2.5 Arterial blood oxygen saturation measurement 96 % 94-100 * Inhaled oxygen flow rate RA NRG Arterial blood pH measurement with patient temperature correction 7.40 7.37-7.43 Arterial blood carbon dioxide, total measurement (moles/volume) 26.1 mmol/L 21.0-31.0 Body site L RAD NRG Assessment of wrist artery patency prior to arterial puncture YES- POS NRG Setting of ventilation mode NO NRG Measurement of body temperature 97.2 NRG Capillary blood glucose measurement by glucometer (mass/volume) - 12/27/17 05: 17 Capillary blood glucose measurement by glucometer (mass/volume) 299 mg/dL 70-110 Encounters ACCT No. Visit Date/Time Discharge Status Pt. Type Provider Facility Loc./Unit Complaint [id number] 02/19/2015 10:39:00 02/19/2015 23:59:59 CLS Outpatient [facility]y [id number] 01/15/2015 15:46:00 01/15/2015 23:59:59 CLS Outpatient [facility], BRYAN [id number] 12/31/2014 09:36:00 12/31/2014 23:59:59 CLS Outpatient [facility], BRYAN [id number] 11/21/2014 14:43:00 11/21/2014 23:59:59 CLS Outpatient [facility], BRYAN [id number] 11/07/2014 15:40:00 11/07/2014 23:59:59 CLS Outpatient LILA AUTOMOTIVE GLAZIERBRYAN [id number] 10/09/2014 15:00:00 10/09/2014 23:59:59 CLS Outpatient ALVARO VYAS DO [id number] 09/06/2014 15:25:00 09/06/2014 23:59:59 JEREMY Outpatient ALVARO VYAS DO [id number] 08/16/2014 15:48:00 08/16/2014 23:59:59 CLS Outpatient LILA AUTOMOTIVE GLAZIERBRYAN [id number] 08/07/2014 14:18:00 08/07/2014 23:59:59 CLS Outpatient LILA AUTOMOTIVE GLAZIERBRYAN Bundy [id number] 07/19/2014 09:53:00 07/19/2014 23:59:59 CLS Outpatient LILA AUTOMOTIVE GLAZIER, BRYAN [id number] 07/09/2014 15:39:00 07/09/2014 23:59:59 CLS Outpatient LILA AUTOMOTIVE GLAZIER, BRYAN [id number] 06/18/2014 16:04:00 06/18/2014 23:59:59 CLS Outpatient LILA AUTOMOTIVE GLAZIER, BRYAN [id number] 06/05/2014 15:45:00 06/05/2014 23:59:59 CLS Outpatient ALVARO VYAS DO [id number] 05/16/2014 16:35:00 05/16/2014 23:59:59 CLS Outpatient LILA AUTOMOTIVE GLAZIER, BRYAN [id number] 05/07/2014 11:39:00 05/07/2014 23:59:59 CLS Outpatient LILA AUTOMOTIVE GLAZIERBRYAN [id number] 04/18/2014 14:58:00 04/18/2014 23:59:59 CLS Outpatient LILA AUTOMOTIVE GLAZIERBRYAN [id number] 04/05/2014 10:34:00 04/05/2014 23:59:59 CLS Outpatient ALVARO VYAS DO [id number] 2014 14:23:00 2014 23:59:59 CLS Outpatient LILA AUTOMOTIVE GLAZIER, BRYAN [id number] 2014 14:23:00 2014 23:59:59 CLS Outpatient LILA AUTOMOTIVE GLAZIERBRYAN [id number] 03/11/2014 12:20:00 03/11/2014 23:59:59 CLS Outpatient FINLEY AUTOMOTIVE GLAZIERAFUA [id number] 02/08/2014 08:25:00 02/08/2014 23:59:59 CLS Outpatient FINLEY AUTOMOTIVE GLAZIERAFUA [id number] 01/10/2014 10:55:00 01/10/2014 23:59:59 CLS Outpatient FINLEY AUTOMOTIVE GLAZIERAFUA [id number] 12/10/2013 17:22:00 12/10/2013 23:59:59 CLS Outpatient FINLEY AUTOMOTIVE GLAZIERAFUA [id number] 09/25/2013 13:29:00 09/25/2013 23:59:59 CLS Outpatient FINLEY AUTOMOTIVE GLAZIERAFUA [id number] 09/03/2013 16:40:00 09/03/2013 23:59:59 CLS Outpatient FINLEY AUTOMOTIVE GLAZIER, AFUA BOSWELL [id number] 08/20/2013 13:43:00 08/20/2013 23:59:59 CLS Outpatient FINLEY AUTOMOTIVE GLAZIERAFUA [id number] 07/18/2013 08:54:00 07/18/2013 23:59:59 CLS Outpatient FINLEY AUTOMOTIVE GLAZIERAFUA [id number] 07/12/2013 16:28:00 07/12/2013 23:59:59 CLS Outpatient FINLEY AUTOMOTIVE GLAZIERAFUA [id number] 01/19/2013 15:27:00 01/19/2013 23:59:59 CLS Outpatient FINLEY AUTOMOTIVE GLAZIER, AFUA BOSWELL [id number] 01/16/2013 13:38:00 01/16/2013 23:59:59 CLS Outpatient [id number] 12/29/2012 09:32:00 12/29/2012 23:59:59 CLS Outpatient AFUA FINLEY APRN [id number] 12/13/2012 14:41:00 12/13/2012 23:59:59 CLS Outpatient [id number] 11/20/2012 10:07:00 11/20/2012 23:59:59 CLS Outpatient AFUA FINLEY APRN [id number] 09/11/2012 09:21:00 09/11/2012 23:59:59 CLS Outpatient AFUA FINLEY APRN [id number] 06/22/2013 15:42:00 Document Registration [id number] 06/15/2013 06:58:00 Document Registration [id number] 04/10/2013 10:26:00 Document Registration [id number] 03/12/2013 11:15:00 Document Registration [id number] 02/26/2013 13:42:00 Document Registration [id number] 02/09/2013 16:13:00 Document Registration [id number] 02/05/2013 07:59:00 Document Registration [id number] 07/28/2015 08:25:02 ACT Document Registration [id number] 06/21/2017 08:36:00 Document Registration [id number] 01/25/2018 12:20:00 01/25/2018 23:59:[address] [facility] [id number] 11/18/2017 09:20:00 Document Registration [id number] 06/20/2017 15:00:00 Document Registration [id number] 12/27/2017 01:47:00 12/27/2017 05:59:00 DIS Outpatient GAURANG STANTON DO Via [facility] ER SEVERE ABD PAIN,DIZZY [id number] 12/23/2017 10:31:00 12/23/2017 23:59:59 CLS Outpatient TINY ALMENDAREZ AUTOMOTIVE GLAZIER [facility] LAB E03.9 [id number] 08/08/2017 17:48:00 08/08/2017 23:59:59 CLS Outpatient OLGA LUCERO MD [facility] RAD ELEVATED PROLACTIC LEVEL E22.9 [id number] 07/29/2017 01:06:00 07/29/2017 02:20:00 DIS Emergency IVORY DICKSON MD Via [facility] ER LOWER BACK PAIN [id number] 07/09/2017 17:13:00 07/09/2017 19:49:00 DIS Emergency IVORY DICKSON MD Via [facility] ER HIGH BLOOD SUGAR, HEADACHE [id number] 05/02/2017 23:40:00 05/03/2017 04:00:00 DIS Emergency JOHN LEE MD Via [facility] ER EYE PAIN,FEELS LIKE NEEDLES IN EYES [id number] 01/25/2017 00:51:00 01/25/2017 02:52:00 DIS Emergency FRANCISCO ALAN DO Via [facility] ER HIGH BLOOD SUGAR 503 [id number] 09/23/2016 14:39:00 09/23/2016 23:59:59 CLS Outpatient ADAIR LUCERO [facility] LAB DIABETES,INSULIN DEPENDENT [id number] 06/04/2016 15:00:00 06/04/2016 23:59:59 CLS Outpatient OLGA LUCERO MD [facility] RAD LUMBAR PAIN,R HIP PAIN [id number] 05/25/2016 22:15:00 05/25/2016 23:33:00 DIS Emergency GAURANG STANTON DO [facility] ER LOWER BACK PAIN [id number] 01/29/2016 11:47:00 01/29/2016 23:59:59 CLS Outpatient OLGA LUCERO MD [facility] LAB [id number] 11/17/2015 10:20:00 11/17/2015 23:59:59 CLS Outpatient OLGA LUCERO MD [facility] LAB HYPOTHYROID [id number] 11/12/2015 08:59:00 11/12/2015 12:00:00 DIS Outpatient TREVIN DALE MD Via [facility] SDC CHANGE IN BOWEL HABIT [id number] 11/10/2015 05:36:00 11/10/2015 23:59:59 CLS Outpatient TREVIN DALE MD [facility] PREOP SCREENING [id number] 11/06/2015 00:09:00 11/06/2015 23:59:59 CLS Preadmit OLGA LUCERO MD Via [facility] LAB DIARRHEA [id number] 08/11/2015 06:00:00 11/05/2015 00:01:00 DIS Outpatient OLGA LUCERO MD [facility] LAB DIARRHEA [id number] 10/11/2015 09:54:00 10/11/2015 11:56:00 DIS Emergency DARRICK VERDUZCO MD [facility] ER MIGRAINE [id number] 07/28/2015 08:22:00 07/28/2015 23:59:59 CLS Outpatient ADAIR LUCERO [facility] LAB DM11 [id number] 07/08/2015 11:07:00 07/08/2015 23:59:59 CLS Outpatient OLGA LUCERO MD [facility] RAD PERSISTANT COUGH [id number] 06/12/2015 20:47:00 06/12/2015 23:13:00 DIS Emergency GAURANG STANTON DO [facility] ER BARAJAS [id number] 12/04/2014 18:15:00 12/06/2014 11:50:00 DIS Inpatient OLGA LUCERO MD [facility] 4TH SUICIDAL IDEATION; DEPRESSION;SCHIZOPHRENIA;UTI; [id number] 08/23/2014 08:56:00 08/23/2014 23:59:59 CLS Outpatient ADAIR LUCERO [facility] LAB DIABETES-INSULIN DEPENDANT [id number] 07/14/2014 02:29:00 07/14/2014 04:00:00 DIS Emergency DARRICK VERDUZCO MD [facility] ER MIGRAINE [id number] 06/19/2014 21:16:00 06/19/2014 22:49:00 DIS Emergency TANYA GONZALEZ APRN [facility] ER HEADACHE [id number] 05/23/2014 12:03:00 05/23/2014 23:59:59 CLS Outpatient ADAIR LUCERO [facility] LAB DIABETES [id number] 05/02/2014 06:12:00 05/02/2014 15:55:00 DIS Outpatient ESAU BERRY DO Via [facility] SDC CHRONIC CHOLECYSTITIS [id number] 04/30/2014 08:30:00 04/30/2014 23:59:59 CLS Outpatient ESAU BERRY DO [facility] PREOP CHRONIC CHOLECYSTITIS [id number] 04/09/2014 09:46:00 04/09/2014 23:59:59 CLS Outpatient OLGA LUCERO MD [facility] CARD RUQ PAIN [id number] 04/03/2014 11:17:00 04/03/2014 23:59:59 CLS Outpatient OLGA LUCERO MD [facility] RAD RUQ PAIN [id number] 02/28/2014 11:50:00 02/28/2014 23:59:59 CLS Outpatient ADAIR LUCERO [facility] LAB DIABETES [id number] 02/06/2014 15:47:00 02/07/2014 18:50:00 DIS Inpatient OLGA LUCERO MD Via [facility] 4TH HEMADEMESIS, TM [id number] 02/04/2014 23:07:00 02/05/2014 00:24:00 DIS Emergency MILLICENT BHATTI MD Via [facility] ER MIGRAINE [id number] 01/11/2014 10:23:00 01/11/2014 23:59:59 CLS Outpatient ADAIR LUCERO [facility] LAB DIABETES [id number] 11/27/2013 10:06:00 11/27/2013 23:59:59 CLS Outpatient AFUA FINLEY [facility] LAB MEDICATION-HIGH RISK [id number] 11/17/2013 11:06:00 11/17/2013 15:25:00 DIS Emergency GAURANG STANTON DO Via [facility] ER DEPRESSION SUICIDAL THOUGHTS [id number] 09/06/2013 21:08:00 09/07/2013 00:18:00 DIS Emergency DARRICK VERDUZCO MD Via [facility] ER ELEVATED BLOOD SUGAR [id number] 09/06/2013 13:55:00 09/06/2013 23:59:59 CLS Outpatient OLGA ULCERO MD [facility] RAD PAIN W/WALKING [id number] 08/07/2013 13:32:00 08/07/2013 23:59:59 CLS Outpatient OLGA LUCERO MD [facility] RAD L Q PAIN [id number] 08/06/2013 15:36:00 08/06/2013 23:59:59 CLS Outpatient OLGA LUCERO MD Via [facility] LAB L Q PAIN [id number] 05/18/2013 16:42:00 05/18/2013 22:49:00 DIS Emergency SERGIO GERARD [facility] ER SUICIDIAL IDEATION [id number] 01/29/2018 00:44:00 ACT Emergency GAURANG STANTON DO Via [facility] ER AMS HIGH BS 497 [id number] 01/29/2016 11:45:00 Document Registration [id number] 02/10/2013 06:25:00 Document Registration [id number] 02/08/2013 11:58:00 Document Registration [id number] 11/08/2012 13:41:00 Document Registration [id number] 08/02/2012 14:50:00 Document Registration [id number] 02/08/2012 22:00:00 Document Registration [id number] 12/27/2011 13:01:00 Document Registration [id number] 12/15/2011 12:51:00 Document Registration [id number] 09/07/2011 22:42:00 Document Registration [id number] 03/19/2011 20:21:00 Document Registration [id number] 02/11/2011 15:16:00 Document Registration [id number] 12/11/2010 13:19:00 Document Registration [id number] 12/10/2010 13:05:00 Document Registration [id number] 11/07/2010 21:58:00 Document Registration [id number] 11/01/2010 22:32:00 Document Registration
[2018-01-29] MEDS ORDERED: NS IV 1000 ML 1,000 ML IV ONE ×2 (01:47→04:03)
[2018-01-29 01:57] LABS: BASOPHILS # (AUTO) 0.1 10^3/uL (0.0-0.1); BASOPHILS % (AUTO) 1 % (0-10); EOSINOPHILS # (AUTO) 0.3 10^3/uL (0.0-0.3); EOSINOPHILS % (AUTO) 2 % (0-10); HEMATOCRIT 43 % (35-52); HEMOGLOBIN 15.6 G/DL (11.5-16.0); LYMPHOCYTES # (AUTO) 5.1 X 10^3 (1.0-4.0); LYMPHOCYTES % (AUTO) 39 % (12-44); MEAN CORPUSCULAR HEMOGLOBIN 30 PG (25-34); MEAN CORPUSCULAR HGB CONC 36 G/DL (32-36); MEAN CORPUSCULAR VOLUME 83 FL (80-99); MONOCYTES # (AUTO) 0.8 X 10^3 (0.0-1.0); MONOCYTES % (AUTO) 6 % (0-12); NEUTROPHILS # (AUTO) 6.9 X 10^3 (1.8-7.8); NEUTROPHILS % (AUTO) 52 % (42-75); PLATELET COUNT 252 10^3/uL (130-400); RED BLOOD COUNT 5.22 10^6/uL (4.35-5.85); RED CELL DISTRIBUTION WIDTH 13.3 % (10.0-14.5); WHITE BLOOD COUNT 13.2 10^3/uL (4.3-11.0)
[2018-01-29 02:08] LABS: BILIRUBIN,URINE NEGATIVE (NEGATIVE); CLARITY,URINE SLIGHTLY CLOUDY; COLOR,URINE YELLOW; GLUCOSE, URINE (UA) 4+ (NEGATIVE); KETONES,URINE 1+ (NEGATIVE); LEUKOCYTE ESTERASE ,URINE 2+ (NEGATIVE); NITRITE,URINE NEGATIVE (NEGATIVE); PH,URINE 5 (5-9); PROTEIN,URINE 2+ (NEGATIVE); UROBILINOGEN,URINE NORMAL (NORMAL)
[2018-01-29 02:12] LABS: ALANINE AMINOTRANSFERASE 26 U/L (0-55); ALBUMIN 4.6 GM/DL (3.2-4.5); ALKALINE PHOSPHATASE 122 U/L (40-136); AMYLASE 41 U/L (25-125); BILIRUBIN,TOTAL 0.3 MG/DL (0.1-1.0); BUN/CREATININE RATIO 17; CALCIUM 10.5 MG/DL (8.5-10.1); CARBON DIOXIDE 17 MMOL/L (21-32); CHLORIDE 107 MMOL/L (98-107); CREATININE SERUM 0.92 MG/DL (0.60-1.30); GFR ESTIMATED > 60; GLUCOSE 249 MG/DL (70-105); LIPASE 41 U/L (8-78); MAGNESIUM 1.7 MG/DL (1.8-2.4); POTASSIUM 2.9 MMOL/L (3.6-5.0); SODIUM 137 MMOL/L (135-145); TOTAL PROTEIN 7.6 GM/DL (6.4-8.2)
[2018-01-29 02:21] LABS: SALICYLATE < 5.0 MG/DL (5.0-20.0)
--- NOTE | 2018-01-29 02:22 | ED General ---
General Chief Complaint: Glucose Problems Stated Complaint: AMS HIGH BS 497 Nursing Triage Note: PT REPORTS HYPERGLYCEMIA AT HOME. SHE STATES HER BLOOD GLUCOSE WAS 497. SHE STATES SHE THEN TOOK 67 U LEVEMIR AND 25 U NOVOLOG. SHE DENIES N/V OR ANY OTHER SYMPTOMS. Nursing Sepsis Screen: No Definite Risk Source of Information: Patient, Old Records History of Present Illness Date Seen by Provider: Jan 29, 2018 Time Seen by Provider: 01:45 Initial Comments PT ARRIVES VIA POV FROM HOME WITH A FEMALE FRIEND PT STATES "I'VE BEEN HAVING MAJOR ISSUES WITH HALLUCINATIONS" ONGOING FOR 3 WEEKS OR LONGER, AND GETTING WORSE STATES "THEY'RE TRYING TO BE MORE PERSUASIVE AND TRY TO TELL ME TO KILL MYSELF" STATES THE VOICES ARE TELLING HER TO CUT HERSELF OR TAKE PILLS OR "DO CRAZY THINGS LIKE WALK OUT INTO THE ROAD" TO KILL MYSELF STATES "THEY TELL ME TO GO OFF ON OTHER PEOPLE" "I DON'T NORMALLY DO THAT" PT STATES SHE HAS NOT MADE ANY ATTEMPT TO HARM HERSELF OR ANYONE ELSE STATES SHE SAW A "PSYCH NURSE" AT [facility] LAST WEEK, AND WAS STARTED ON TRILEPTAL 01/25/18 HAS AN APPOINTMENT WITH A THERAPIST THIS COMING WEEK PT ALSO C/O NASAL CONGESTION, COUGH AND WHEEZING --ONGOING PROBLEM, HAS NOT SOUGHT CARE C/O CLEAR SPUTUM C/O ONGOING PROBLEMS WITH SHORTNESS OF BREATH WITH EXERTION NO FEVER NO SWELLING IN LEGS/ FEET OR PAIN IN CALVES NO CHEST PAIN ALL OF THESE SYMPTOMS ARE ONGOING FOR A LONG TIME AND ARE NO DIFFERENT TODAY, AND HAS NOT TAKEN ANYTHING FOR THESE SYMPTOMS AND HAS NOT SOUGHT CARE AT ANY TIME PT STATES SHE IS DIABETIC AND CHECKS HER BLOOD SUGAR TWICE A DAY AND TODAY IT WAS 236 THIS MORNING, AND THEN WAS 497 TONIGHT. PT HAD SWEET AND SOUR CHICKEN WITH RICE, PLUS A STEAK AND CHEESE CHIMICHANGA AND RICE FOR DINNER TONIGHT PT REPORTED TO RN THAT SHE TOOK 67 UNITS OF LEVEMIR AND 25 UNITS OF NOVOLOG ( SHE DID NOT REPORT THIS TO ME ) . NORMALLY TAKES 60 UNITS OF LEVEMIR AT HS, AND 27 UNITS OF NOVOLOG TID PT ASYMPTOMATIC IN REGARD TO BLOOD SUGAR READINGS. PCP: DR. LUCERO PSYCH: [facility] Allergies and Home Medications Allergies Coded Allergies: amoxicillin (Unverified Allergy, Severe, sob, rash, 11/01/10) Penicillins (Verified Adverse Reaction, Severe, RASH, 12/14/05) cefuroxime (Verified Adverse Reaction, Severe, RASH, 12/14/05) clarithromycin (Unverified Adverse Reaction, Mild, nausea and dizziness, ) Home Medications Cyclobenzaprine HCl 10 Mg Tablet, 10 MG PO Q8H PRN for SPASMS Prescribed by: IVORY DICKSON on 07/29/17214 Insulin Aspart 100 Unit/1 Ml Insuln.pen, 27 UNITS SQ TID, (Reported) Insulin Detemir 100 Unit/1 Ml Insuln.pen, 60 UNITS SC HS, (Reported) Levothyroxine Sodium 88 Mcg Tablet, 88 MCG PO DAILY, (Reported) Lorazepam 1 Mg Tab, 2 MG PO HS PRN for ANXIETY, (Reported) TAKES 2 (1MG) TABLETS Lorazepam 1 Mg Tab, 1 MG PO BID PRN for ANXIETY, (Reported) Metformin Hcl 1,000 Mg Tablet, 1,000 MG PO BID, (Reported) Nitrofurantoin Monohyd/M-Cryst 100 Mg Capsule, 1 TAB PO BID Prescribed by: IVORY DICKSON on 07/09/171913 Prednisone 20 Mg Tab, 20 MG PO BID Prescribed by: IVORY DICKSON on 07/29/17214 Topiramate 100 Mg Tablet, 100 MG PO BID, (Reported) Review of Systems Constitutional: No chills, No diaphoresis, No dizziness, No fever, No malaise, No weakness EENTM: see HPI, nose congestion Respiratory: see HPI, cough, dyspnea on exertion, phlegm (CLEAR), short of breath, wheezing Cardiovascular: No chest pain, No edema, No palpitations, No syncope, No vascular heart diseas Gastrointestinal: no symptoms reported, No abdominal pain, No nausea, No vomiting Genitourinary: no symptoms reported : No LMP: Jan 28, 2018 Musculoskeletal: no symptoms reported Skin: no symptoms reported Psychiatric/Neurological: See HPI, Anxiety, Depressed, Emotional Problems, Denies Headache, Denies Numbness, Denies Paresthesia Hematologic/Lymphatic: No Symptoms Reported Immunological/Allergic: no symptoms reported Past Acwakku-Ldktyg-Mxywff Hx Patient Social History Alcohol Use: Rarely Uses Recreational Drug Use: Yes (THC "ONE TIME" ) Smoking Status: Current Everyday Smoker (> 1 PPD) Type Used: Cigarettes (> 1 PPD) 2nd Hand Smoke Exposure: Yes Recent Foreign Travel: No Contact w/Someone Who Travel: No Recent Infectious Disease Expo: No Recent Hopitalizations: No Immunizations Up To Date Tetanus Booster (TDap): Less than 5yrs Date of Pneumonia Vaccine: Oct 24, 2010 Date of Influenza Vaccine: Aug 30, 2015 Seasonal Allergies Seasonal Allergies: Yes Past Medical History Surgeries: Yes (EGD, RIGHT HIP SURGERY CHILD FOR UNKNOWN REASON) Appendectomy, Eye Surgery, Gallbladder, Orthopedic Respiratory: No Cardiac: No Neurological: Yes Headaches /Migraines Reproductive Disorders: No Female Reproductive Disorders: Denies Sexually Transmitted Disease: No HIV/AIDS: No Genitourinary: Yes UTI-Chronic Gastrointestinal: Yes Gastroesophageal Reflux Musculoskeletal: No Endocrine: Yes (INSULIN + ORAL MEDICATIONS; OBESITY) Diabetes, Insulin dep, Hypothyroidsim HEENT: No Loss of Vision: Bilateral Hearing Impairment: Denies Cancer: No Psychosocial: Yes (EXTENSIVE PSYCH ISSUES) ADD/ADHD, Anxiety, Suicide Attempts, Personality Disorder, Schizophrenia, Depression Integumentary: No Blood Disorders: No Family Medical History Family history: Allergy 03 MOTHER 09 BROTHER Family history: Arthritis 03 MOTHER Family history: Asthma 09 BROTHER 09 SISTER Family history: Cardiovascular disease 03 FATHER ("TAKES MEDICATION FOR HIS HEART") Family history: Diabetes mellitus 03 FATHER Family history: Hypertension 03 MOTHER Hypercholesterolemia 03 MOTHER Psychosocial problem 09 SISTER (DEPRESSION) Psychotic disorder 09 SISTER (ANXIETY) No Family History of: Abdominal aortic aneurysm Zenon's disease Alcoholism Aphasia Cancer Cancer of colon Cataract Chest pain Congenital heart disease Congestive heart failure Cystic fibrosis Dementia Dysphagia Family history: Alzheimer's disease Family history: Breast disease Family history: Coronary thrombosis Family history: Gastrointestinal disease Family history: Glaucoma Family history: Osteoporosis Family history: Thyroid disorder Headache Hearing loss Heart disease Hereditary disease History of - anemia History of - disorder History of - respiratory disease History of drug abuse Human immunodeficiency virus (HIV) seropositivity Infertile Kidney disease Malignant neoplasm of lung Myocardial infarction Parkinson's disease Prostate cancer Seizure disorder Stroke Tuberculosis Visual impairment Physical Exam Vital Signs Vital Signs - First Documented 01/29/18 01:37 Temp 96.3 Pulse 117 Resp 20 B/P (MAP) 133/94 (107) Pulse Ox 97 O2 Delivery Room Air Capillary Refill : Less Than 3 Seconds General Appearance: No Apparent Distress, WD/WN, Other (REEKS OF CIGARETTES. PT IS CALM AND COOPERATIVE. NO COUGH NOTED) HEENT: PERRL/EOMI, Pharynx Normal, Other (POOR DENTITION, MULTIPLE MISSING TEETH) Neck: Full Range of Motion, Normal Inspection, Non Tender, Supple Respiratory: Normal Breath Sounds, No Accessory Muscle Use, No Respiratory Distress Cardiovascular: No Edema, No JVD, No Murmur, Normal Peripheral Pulses, Tachycardia (MILD IN 110'S) Gastrointestinal: Normal Bowel Sounds, No Organomegaly, No Pulsatile Mass, Non Tender, Soft Back: Normal Inspection Extremity: Normal Inspection, Normal Range of Motion, Non Tender, No Calf Tenderness, No Pedal Edema Neurologic/Psychiatric: Alert, Oriented x3, No Motor/Sensory Deficits, Normal Mood/Affect (PT CALM AND COOPERATIVE), site technician II-XII Norm as Tested Skin: Normal Color, Warm/Dry Progress/Results/Core Measures Suspected Sepsis Recent Fever Within 48 Hours: No Infection Criteria Present: None New/Unexplained Altered Menta: No Sepsis Screen: No Definite Risk Sepsis Diagnosis: SIRS Temperature:96.3 Pulse: 117 Respiratory Rate: 20 Laboratory Tests 01/29/18 01:32: White Blood Count 13.2H Blood Pressure 133 /94 Mean: 107 Laboratory Tests 01/29/18 01:32: Creatinine 0.92, Platelet Count 252, Total Bilirubin 0.3 Results/Orders Lab Results Laboratory Tests Test 01/29/18 01:28 01/29/18 01:32 01/29/18 01:58 01/29/18 05:30 Range/Units Glucometer 232 H 70-110 MG/DL White Blood Count 13.2 H 4.3-11.0 10^3/uL Red Blood Count 5.22 4.35-5.85 10^6/uL Hemoglobin 15.6 11.5-16.0 G/DL Hematocrit 43 35-52 % Mean Corpuscular Volume 83 80-99 FL Mean Corpuscular Hemoglobin 30 25-34 PG Mean Corpuscular Hemoglobin Concent 36 32-36 G/DL Red Cell Distribution Width 13.3 10.0-14.5 % Platelet Count 252 130-400 10^3/uL Mean Platelet Volume 11.0 H 7.4-10.4 FL Neutrophils (%) (Auto) 52 42-75 % Lymphocytes (%) (Auto) 39 12-44 % Monocytes (%) (Auto) 6 0-12 % Eosinophils (%) (Auto) 2 0-10 % Basophils (%) (Auto) 1 0-10 % Neutrophils # (Auto) 6.9 1.8-7.8 X 10^3 Lymphocytes # (Auto) 5.1 H 1.0-4.0 X 10^3 Monocytes # (Auto) 0.8 0.0-1.0 X 10^3 Eosinophils # (Auto) 0.3 0.0-0.3 10^3/uL Basophils # (Auto) 0.1 0.0-0.1 10^3/uL Sodium Level 137 135-145 MMOL/L Potassium Level 2.9 L 2.6 L 3.6-5.0 MMOL/L Chloride Level 107 98-107 MMOL/L Carbon Dioxide Level 17 L 21-32 MMOL/L Anion Gap 13 5-14 MMOL/L Blood Urea Nitrogen 16 7-18 MG/DL Creatinine 0.92 0.60-1.30 MG/DL Estimat Glomerular Filtration Rate > 60 BUN/Creatinine Ratio 17 Glucose Level 249 H 70-105 MG/DL Calcium Level 10.5 H 8.5-10.1 MG/DL Magnesium Level 1.7 L 1.8-2.4 MG/DL Total Bilirubin 0.3 0.1-1.0 MG/DL Aspartate Amino Transf (AST/SGOT) 12 5-34 U/L Alanine Aminotransferase (ALT/SGPT) 26 0-55 U/L Alkaline Phosphatase 122 40-136 U/L Total Protein 7.6 6.4-8.2 GM/DL Albumin 4.6 H 3.2-4.5 GM/DL Amylase Level 41 25-125 U/L Lipase 41 8-78 U/L Free Thyroxine 0.96 0.70-1.48 NG/DL TSH [place] Testing 5.17 H 0.35-4.94 UIU/ML Serum Test, Qualitative NEGATIVE NEGATIVE Salicylates Level < 5.0 L 5.0-20.0 MG/DL Acetaminophen Level < 10 L 10-30 UG/ML Serum Alcohol < 10 <10 MG/DL Urine Color YELLOW Urine Clarity SLIGHTLY CLOUDY Urine pH 5 5-9 Urine Specific [place] 1.025 H 1.016-1.022 Urine Protein 2+ H NEGATIVE Urine Glucose (UA) 4+ H NEGATIVE Urine Ketones 1+ H NEGATIVE Urine Nitrite NEGATIVE NEGATIVE Urine Bilirubin NEGATIVE NEGATIVE Urine Urobilinogen NORMAL NORMAL MG/DL Urine Leukocyte Esterase 2+ H NEGATIVE Urine RBC (Auto) 1+ H NEGATIVE Urine RBC 0-2 /HPF Urine WBC 2-5 /HPF Urine Squamous Epithelial Cells 5-10 /HPF Urine Crystals NONE /LPF Urine Bacteria FEW H /HPF Urine Casts NONE /LPF Urine Mucus NEGATIVE /LPF Urine Yeast FEW H /HPF Urine Culture Indicated YES Urine Opiates Screen NEGATIVE NEGATIVE Urine Oxycodone Screen NEGATIVE NEGATIVE Urine Methadone Screen NEGATIVE NEGATIVE Urine Propoxyphene Screen NEGATIVE NEGATIVE Urine Barbiturates Screen NEGATIVE NEGATIVE Ur Tricyclic Antidepressants Screen POSITIVE H NEGATIVE Urine Phencyclidine Screen NEGATIVE NEGATIVE Urine Amphetamines Screen NEGATIVE NEGATIVE Urine Methamphetamines Screen NEGATIVE NEGATIVE Urine Benzodiazepines Screen POSITIVE H NEGATIVE Urine Cocaine Screen NEGATIVE NEGATIVE Urine Cannabinoids Screen NEGATIVE NEGATIVE Test 01/29/18 05:31 01/29/18 07:36 Range/Units Glucometer 69 L 172 H 70-110 MG/DL My Orders Orders - GAURANG STANTON DO Accucheck Stat ONCE (01/29/18 01:47) Saline Lock/Iv-Start (01/29/18 01:47) Amylase (01/29/18 01:47) Cbc With Automated Diff (01/29/18 01:47) Comprehensive Metabolic Panel (01/29/18 01:47) Drug Screen Stat (Urine) (01/29/18 01:47) Hcg,Qualitative Serum (01/29/18 01:47) Lipase (01/29/18 01:47) Magnesium (01/29/18 01:47) Ua Culture If Indicated (01/29/18 01:47) Saline Lock/Iv-Start (01/29/18 01:47) Ns Iv 1000 Ml (Sodium Chloride 0.9%) (01/29/18 01:47) Ekg Tracing (01/29/18 02:05) Acetaminophen (01/29/18 02:05) Alcohol (01/29/18 02:05) Salicylate (01/29/18 02:05) Thyroid Analyzer (01/29/18 02:05) Chest Pa/Lat (2 View) (01/29/18 02:13) Urine Culture (01/29/18 01:58) Free T4 (Free Thyroxine) (01/29/18 01:32) Potassium Chloride (Tablet) (Klor Con Ta (01/29/18 03:45) Magnesium Oxide Tablet (Mag Ox Tablet) (01/29/18 03:45) Saline Lock/Iv-Start (01/29/18 04:03) Ns Iv 1000 Ml (Sodium Chloride 0.9%) (01/29/18 04:03) Accucheck Stat ONCE (01/29/18 04:03) Nitrofurantoin Capsule,Macro (Macrobid C (01/29/18 04:30) Potassium (01/29/18 05:29) 1/2 Ns W/Kcl 20 Meq/L (0.45% Sodium Chlo (01/29/18 06:15) Potassium Cl 10meq/50ml Ivpb (Kcl 10 Meq (01/29/18 06:15) Magnesium 1 Gm/100 Ml Ivpb (Magnesium Rivera (01/29/18 06:45) Accucheck Stat ONCE (01/29/18 06:48) Medications Given in ED Current Medications Medications Dose Ordered Sig/Kiarra Route Start Time Stop Time Status Last Admin Dose Admin Magnesium Oxide 1,600 mg ONCE ONCE PO 01/29/18 03:45 01/29/18 05:52 DC 01/29/18 04:11 1,600 MG Nitrofurantoin Macrocrystals 100 mg ONCE ONCE PO 01/29/18 04:30 01/29/18 05:52 DC 01/29/18 07:03 100 MG Potassium Chloride 40 meq ONCE ONCE PO 01/29/18 03:45 01/29/18 05:52 DC 01/29/18 04:15 40 MEQ Sodium Chloride 1,000 ml @ 0 mls/hr Q0M ONCE IV 01/29/18 01:47 01/29/18 01:49 DC 01/29/18 04:10 0 MLS/HR Vital Signs/I&O 01/29/18 01/29/18 01:37 07:18 Temp 96.3 Pulse 117 95 Resp 20 18 B/P (MAP) 133/94 (107) 132/96 (108) Pulse Ox 97 95 O2 Delivery Room Air Room Air Capillary Refill : Less Than 3 Seconds Blood Pressure Mean: 107 Progress Note : Progress Note PT SLEPT THROUGH MOST OF ER STAY, EASILY AWAKENS O2 SATS 90-92 % WHILE ASLEEP, 98% WHILE AWAKE NO SNORING OR DYSPNEA AT ANY TIME NO COUGH NOTED AT ANY TIME DURING ER STAY 0535--ACCUCHECK 69--FOOD TRAY GIVEN TO PT 0740--REPEAT ACCUCHECK 172 REPEAT POTASSIUM LEVEL-2.6, AFTER BEING GIVEN ORAL POTASSIUM. WILL GIVE IV POTASSIUM AND IV MAGNESIUM ECG Initial ECG Impression Date: Jan 29, 2018 Initial ECG Impression Time: 02:13 Initial ECG Rate: 114 Initial ECG Rhythm: S.Tach Initial ECG Impression: Nonspecific Changes Diagnostic Imaging Comments CXR--NO ACUTE PROCESS, POOR INSPIRATION/LIMITED EXAM. PENDING RADIOLOGIST REVIEW Departure Communication (Admissions) 0337--CALLED [facility]. 0344--SPOKE WITH FLACO COVARRUBIAS WITH [facility]. SHE STATES PT HAD CALLED EARLIER AROUND 2330 THIS EVENING FOR THESE COMPLAINTS, AND SHE TOLD PT TO COME HERE FOR A MEDICAL SCREEN AND SHE IS VOLUNTARY, AND WANTS TO BE ADMITTED TO PSYCH FACILITY, NO PSYCH SCREEN IN ER WAS NECESSARY. PT NOR FEMALE FRIEND WITH HER DID NOT RELATE ANY OF THIS INFORMATION TO ME OR ER NURSE HERE AT ANY TIME. ON DIRECT QUESTIONING OF PT AND FEMALE FRIEND AGREE THAT PT WANTS TO BE ADMITTED TO PSYCH UNIT AND IS VOLUNTARY AND DO NOT FEEL LIKE SHE NEEDS FOR PSYCH SCREENER TO COME TO ER AND TALK TO HER AGAIN, SHE HAS ALREADY TALKED TO HER TONIGHT. PT STATES THAT IS THE REASON WHY SHE CAME HERE [facility]. 0353--CALLED [facility] DIRECT CALL. NO FEMALE PSYCH BEDS AVAILABLE 0354--CALLED [facility]--HAVE FEMALE BED, WILL FAX INFO TO THEM. 0535--[facility] HAS RECEIVED ALL INFORMATION, REQUEST A REPEAT POTASSIUM LEVEL BE DRAWN AT THIS TIME. REPEAT POTASSIUM LEVEL IS 2.6--WHICH IS DOWN FROM 2.9 0619--SPOKE WITH DR. MCCLAIN, ACCEPTS PT FOR ADMIT. WILL GIVE SUPPLEMENTAL POTASSIUM AND MAGNESIUM AND RECHECK LEVELS, AND ANTICIPATE TRANSFER TO PSYCH FACILITY AT THAT POINT, ONCE THOSE LEVELS HAVE IMPROVED 0705--SPOKE WITH IDRIS, AT [facility], AND UPDATE GIVEN. SHE STATES THEY HAVE SEVERAL FEMALE BEDS AVAILABLE AND TO CALL BACK SOON POTASSIUM AND MAGNESIUM LEVELS HAVE IMPROVED. Impression Primary Impression: SUICIDAL IDEATION Additional Impressions: Auditory hallucinations IDDM (insulin dependent diabetes mellitus) Hypokalemia Hypomagnesemia UTI (urinary tract infection) Disposition: ADMITTED INPATIENT Condition: Stable Admissions Decision to Admit Reason: Admit from ER (General) Decision to Admit/Date: Jan 29, 2018 Time/Decision to Admit Time: 06:20 Departure-Patient Inst. Referrals: OLGA LUCERO MD (PCP/Family) Primary Care Physician GAURANG STANTON DO Jan 29, 2018 02:22
[2018-01-29 02:26] LABS: AMPHETAMINE SCREEN, URINE NEGATIVE (NEGATIVE); BARBITURATE SCREEN URINE NEGATIVE (NEGATIVE); BENZODIAZEPINES SCREEN URINE POSITIVE (NEGATIVE); CANNABINOID SCREEN, URINE NEGATIVE (NEGATIVE); COCAINE SCREEN URINE NEGATIVE (NEGATIVE); METHADONE STAT NEGATIVE (NEGATIVE); METHAMPHETAMINE SCREEN URINE S NEGATIVE (NEGATIVE); OPIATE SCREEN URINE NEGATIVE (NEGATIVE); OXYCODONE STAT NEGATIVE (NEGATIVE); PROPOXYPHENE STAT NEGATIVE (NEGATIVE); TRICYCLIC ANTIDEPRESSANTS SCRE POSITIVE (NEGATIVE)
[2018-01-29 02:27] LABS: ACETAMINOPHEN < 10 UG/ML (10-30)
[2018-01-29 02:27] LABS: BACTERIA,URINE FEW /HPF; RBC,URINE 0-2 /HPF; YEAST,URINE FEW /HPF
[2018-01-29 02:41] LABS: TSH (THYROID ANALYZER) 5.17 UIU/ML (0.35-4.94)
[2018-01-29] MEDS ORDERED: MAGNESIUM OXIDE (MAG-OX)400 MG TAB PO ONE (03:45)
[2018-01-29 03:52] LABS: FREE T4 (FREE THYROXINE) 0.96 NG/DL (0.70-1.48)
[2018-01-29] MEDS: KCL 10 MEQ TAB (MICRO K) PO ONE ×2 (04:10→04:15)
[2018-01-29] MEDS ORDERED: NITROFURANTOIN 100 MG (MACROBID) CAPSULE PO ONE (04:30)
[2018-01-29] MEDS ORDERED: 1/2 NS W/KCL 20 MEQ/L 1,000 ML IV SCH (06:15)
[2018-01-29] MEDS: POTASSIUM CL 10MEQ/50ML IVPB 50 ML IV SCH ×2 (06:20→07:04)
[2018-01-29] MEDS ORDERED: MAGNESIUM 1 GM/100 ML IVPB 100 ML IV ONE (06:45)
--- OUTSIDE RECORDS SUMMARY | 2018-01-29 07:17 | XMS REPORT | Clinical Summary ---
Author Author [facility] Organization [facility] Address Unknown Phone Unavailable Care Team Providers Care Skiver Counter Name Role Phone Patrick Ryan MD PCP Source Comments Some departments are not documenting in the electronic medical record. If you do not see the information that you expected, contact Release of Information in the Health Information Management department at [phone] for further assistance in locating additional records.[facility] Allergies Active Allergy Reactions Severity Noted [...]
--- NOTE | 2018-01-29 07:19 | Diagnostic Imaging Report ---
INDICATION: Altered mental status. Comparison is made to the prior study from July 08, 2015. FINDINGS: Lung volume is minimally diminished but there is no evidence of focal infiltrate or effusion. There is no pneumothorax. The heart size and mediastinal contours appropriate. Pulmonary vascularity appears within normal limits. IMPRESSION: No radiographic evidence of an acute cardiopulmonary process. Dictated by: Dictated on workstation # [id number]
--- OUTSIDE RECORDS SUMMARY | 2018-01-29 07:26 | XMS REPORT | Continuity of Care Document ---
Author Author [facility] Address Unknown Phone Unavailable Allergies Active Description Code Type Severity Reaction Onset Reported/Identified Relationship to Patient Clinical Status Yes cefuroxime [id number] Drug Allergy Severe RASH 12/14/2005 Yes Penicillins [id number] Drug Allergy Severe RASH 12/14/2005 Yes amoxicillin [id number] Drug Allergy Severe sob, rash 11/01/2010 Yes [...] Delayed Release(E.C.) Drug Allergy 2011 Yes clarithromycin [id number] Drug Allergy Mild nausea and dizz 02/07/2014 [...] AFFECTIVE 07/17/2010 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 07/17/2010 FINLEY MICROBIOLOGY LABORATORY MANAGER, AFUA BOSWELL 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 07/17/2010 FINLEY MICROBIOLOGY LABORATORY MANAGER, AFUA BOSWELL 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 07/17/2010 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 07/17/2010 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 07/17/2010 FINLEY MICROBIOLOGY LABORATORY MANAGER, AFUA BOSWELL 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 07/17/2010 FINLEY MICROBIOLOGY LABORATORY MANAGER, AFUA BOSWELL 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 07/17/2010 295.70 [...] AFFECTIVE 07/17/2010 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 07/17/2010 FINLEY MICROBIOLOGY LABORATORY MANAGER, AFUA BOSWELL 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 07/17/2010 FINLEY MICROBIOLOGY LABORATORY MANAGER, AFUA BOSWELL 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 07/17/2010 FINLEY MICROBIOLOGY LABORATORY MANAGER, AFUA BOSWELL 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 07/17/2010 FINLEY MICROBIOLOGY LABORATORY MANAGER, AFUA LIZAMAH 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 07/17/2010 FINLEY MICROBIOLOGY LABORATORY MANAGER, AFUA BOSWELL 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 07/17/2010 FINLEY MICROBIOLOGY LABORATORY MANAGER, AFUA LIZAMAH 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 07/17/2010 FINLEY MICROBIOLOGY LABORATORY MANAGER, AFUA BOSWELL 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 07/17/2010 FINLEY MICROBIOLOGY LABORATORY MANAGER, AFUA LIZAMAH 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 07/17/2010 FINLEY MICROBIOLOGY LABORATORY MANAGER, AFUA BOSWELL 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 07/17/2010 FINLEY MICROBIOLOGY LABORATORY MANAGER, AFUA LIZAMAH 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 07/17/2010 FINLEY MICROBIOLOGY LABORATORY MANAGER, AFUA BOSWELL 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 07/17/2010 FINLEY MICROBIOLOGY LABORATORY MANAGER, AFUA LIZAMAH 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 07/17/2010 FINLEY MICROBIOLOGY LABORATORY MANAGER, AFUA BOSWELL 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 07/17/2010 FINLEY MICROBIOLOGY LABORATORY MANAGER, AFUA BOSWELL 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 07/17/2010 FINLEY MICROBIOLOGY LABORATORY MANAGER, AFUA BOSWELL 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 07/17/2010 FINLEY MICROBIOLOGY LABORATORY MANAGER, AFUA BOSWELL 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 07/17/2010 FINLEY MICROBIOLOGY LABORATORY MANAGER, AFUA BOSWELL 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 07/17/2010 FINLEY MICROBIOLOGY LABORATORY MANAGER, AFUA BOSWELL 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 07/17/2010 LILA MICROBIOLOGY LABORATORY MANAGER, BRYAN 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 07/17/2010 LILA MICROBIOLOGY LABORATORY MANAGER, BRYAN 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 07/17/2010 VYAS DO ALVARO K 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 07/17/2010 VYAS DO ALVARO K 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 07/17/2010 LILA MICROBIOLOGY LABORATORY MANAGER, BRYAN 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 07/17/2010 LILA MICROBIOLOGY LABORATORY MANAGER, BRYAN 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 07/17/2010 LILA MICROBIOLOGY LABORATORY MANAGER, BRYAN 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 07/17/2010 LILA MICROBIOLOGY LABORATORY MANAGER, BRYAN 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 07/17/2010 LILA MICROBIOLOGY LABORATORY MANAGER, BRYAN 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 07/17/2010 LILA MICROBIOLOGY LABORATORY MANAGER, BRYAN 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 07/17/2010 LILA MICROBIOLOGY LABORATORY MANAGER, BRYAN 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 07/17/2010 LILA MICROBIOLOGY LABORATORY MANAGER, BRYAN 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 07/17/2010 VYAS DO ALVARO K 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 07/17/2010 VYAS DO ALVARO K 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 07/17/2010 LILA MICROBIOLOGY LABORATORY MANAGER, BRYAN 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 07/17/2010 LILA MICROBIOLOGY LABORATORY MANAGER, BRYAN 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 07/17/2010 LILA MICROBIOLOGY LABORATORY MANAGER, BRYAN 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 07/17/2010 LILA MICROBIOLOGY LABORATORY MANAGER, BRYAN 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 07/17/2010 LILA MICROBIOLOGY LABORATORY MANAGER, BRYAN 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 07/17/2010 LILA MICROBIOLOGY LABORATORY MANAGER, BRYAN 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 07/17/2010 LILA MICROBIOLOGY LABORATORY MANAGER, BRYAN 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 07/17/2010 LILA MICROBIOLOGY LABORATORY MANAGER, BRYAN 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 07/17/2010 LILA MICROBIOLOGY LABORATORY MANAGER, BRYAN 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 07/17/2010 LILA MICROBIOLOGY LABORATORY MANAGER, BRYAN 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 07/17/2010 VYAS DO, ALVARO K 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 07/17/2010 VYAS DO, ALVARO K 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 07/17/2010 VYAS DO, ALVARO K 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 07/17/2010 VYAS DO, ALVARO K 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 07/17/2010 LILA MICROBIOLOGY LABORATORY MANAGER, BRYAN 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 07/17/2010 LILA MICROBIOLOGY LABORATORY MANAGER, BRYAN 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 07/17/2010 LILA MICROBIOLOGY LABORATORY MANAGER, BRYAN 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 07/17/2010 LILA MICROBIOLOGY LABORATORY MANAGER, BRYAN 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 07/17/2010 LILA MICROBIOLOGY LABORATORY MANAGER, BRYAN 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 07/17/2010 LILA MICROBIOLOGY LABORATORY MANAGER, BRYAN 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 07/17/2010 LILA MICROBIOLOGY LABORATORY MANAGER, BRYAN 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 07/17/2010 LILA MICROBIOLOGY LABORATORY MANAGER, BRYAN 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 07/17/2010 LILA MICROBIOLOGY LABORATORY MANAGER, BRYAN 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 07/17/2010 LILA MICROBIOLOGY LABORATORY MANAGER, BRYAN 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 11/01/2010 Ot 682.3 [...] 278.01 OBESITY, MORBID (BMI >40) 02/22/2011 FINLEY MICROBIOLOGY LABORATORY MANAGER, AFUA BOSWELL 401.1 HYPERTENSION, BENIGN ESSENTIAL 02/22/2011 TUSHAR GAYNiharika AFUA BOSWELL 278.01 OBESITY, MORBID (BMI >40) 02/22/2011 TUSHAR CHAUDHRY AFUA LIZAMAH 401.1 HYPERTENSION, BENIGN ESSENTIAL 02/22/2011 278.01 OBESITY, MORBID (BMI >40) 02/22/2011 401.1 HYPERTENSION, BENIGN ESSENTIAL 02/22/2011 FINLEYMONICO GAYNiharika AFUA LIZAMAH 278.01 OBESITY, MORBID (BMI >40) 02/22/2011 FINLEY MICROBIOLOGY LABORATORY MANAGER, AFUA LIZAMAH 401.1 HYPERTENSION, BENIGN ESSENTIAL 02/22/2011 [...] 02/22/2011 401.1 HYPERTENSION, BENIGN ESSENTIAL 02/22/2011 FINLEY MICROBIOLOGY LABORATORY MANAGER, AFUA BOSWELL 278.01 OBESITY, MORBID (BMI >40) 02/22/2011 FINLEY MICROBIOLOGY LABORATORY MANAGER, AFUA ANDREIA 401.1 HYPERTENSION, BENIGN ESSENTIAL 02/22/2011 FINLEY MICROBIOLOGY LABORATORY MANAGER, AFUA ANDREIA 278.01 OBESITY, MORBID (BMI >40) 02/22/2011 FINLEY MICROBIOLOGY LABORATORY MANAGER, AFUA ANDREIA 401.1 HYPERTENSION, BENIGN ESSENTIAL 02/22/2011 FINLEY MICROBIOLOGY LABORATORY MANAGER, AFUA ANDREIA 278.01 OBESITY, MORBID (BMI >40) 02/22/2011 FINLEY MICROBIOLOGY LABORATORY MANAGER, AFUA ANDREIA 401.1 HYPERTENSION, BENIGN ESSENTIAL 02/22/2011 FINLEY MICROBIOLOGY LABORATORY MANAGER, AFUA ANDREIA 278.01 OBESITY, MORBID (BMI >40) 02/22/2011 FINLEY MICROBIOLOGY LABORATORY MANAGER, AFUA LIZAMAH 401.1 HYPERTENSION, BENIGN ESSENTIAL 02/22/2011 FINLEY MICROBIOLOGY LABORATORY MANAGER, AFUA ANDREIA 278.01 OBESITY, MORBID (BMI >40) 02/22/2011 FINLEY MICROBIOLOGY LABORATORY MANAGER, AFUA LIZAMAH 401.1 HYPERTENSION, BENIGN ESSENTIAL 02/22/2011 FINLEY MICROBIOLOGY LABORATORY MANAGER, AFUA ANDREIA 278.01 OBESITY, MORBID (BMI >40) 02/22/2011 FINLEY MICROBIOLOGY LABORATORY MANAGER, AFUA ANDREIA 401.1 HYPERTENSION, BENIGN ESSENTIAL 02/22/2011 FINLEY MICROBIOLOGY LABORATORY MANAGER, AFUA ANDREIA 278.01 OBESITY, MORBID (BMI >40) 02/22/2011 FINLEY MICROBIOLOGY LABORATORY MANAGER, AFUA ANDREIA 401.1 HYPERTENSION, BENIGN ESSENTIAL 02/22/2011 FINLEY MICROBIOLOGY LABORATORY MANAGER, AFUA ANDREIA 278.01 OBESITY, MORBID (BMI >40) 02/22/2011 FINLEY MICROBIOLOGY LABORATORY MANAGER, AFUA ANDREIA 401.1 HYPERTENSION, BENIGN ESSENTIAL 02/22/2011 FINLEY MICROBIOLOGY LABORATORY MANAGER, AFUA ANDREIA 278.01 OBESITY, MORBID (BMI >40) 02/22/2011 FINLEY MICROBIOLOGY LABORATORY MANAGER, AFUA ANDREIA 401.1 HYPERTENSION, BENIGN ESSENTIAL 02/22/2011 LILA MICROBIOLOGY LABORATORY MANAGER, BRYAN 278.01 OBESITY, MORBID (BMI >40) 02/22/2011 LILA MICROBIOLOGY LABORATORY MANAGER, BRYAN 401.1 HYPERTENSION, BENIGN ESSENTIAL 02/22/2011 ALVARO VYAS DO 278.01 OBESITY, MORBID (BMI >40) 02/22/2011 ASAEL CHAPMAN ALVARO K 401.1 HYPERTENSION, BENIGN ESSENTIAL 02/22/2011 LILA MICROBIOLOGY LABORATORY MANAGER, BRYAN 278.01 OBESITY, MORBID (BMI >40) 02/22/2011 LILA MICROBIOLOGY LABORATORY MANAGER, BRYAN 401.1 HYPERTENSION, BENIGN ESSENTIAL 02/22/2011 LILA MICROBIOLOGY LABORATORY MANAGER, BRYAN 278.01 OBESITY, MORBID (BMI >40) 02/22/2011 LILA MICROBIOLOGY LABORATORY MANAGER, BRYAN 401.1 HYPERTENSION, BENIGN ESSENTIAL 02/22/2011 LILA MICROBIOLOGY LABORATORY MANAGER, BRYAN 278.01 OBESITY, MORBID (BMI >40) 02/22/2011 LILA MICROBIOLOGY LABORATORY MANAGER, BRYAN 401.1 HYPERTENSION, BENIGN ESSENTIAL 02/22/2011 LILA MICROBIOLOGY LABORATORY MANAGER, BRYAN 278.01 OBESITY, MORBID (BMI >40) 02/22/2011 LILA MICROBIOLOGY LABORATORY MANAGER, BRYAN 401.1 HYPERTENSION, BENIGN ESSENTIAL 02/22/2011 ASAEL CHAPMAN ALVARO K 278.01 OBESITY, MORBID (BMI >40) 02/22/2011 ASAEL CHAPMAN ALVARO K 401.1 HYPERTENSION, BENIGN ESSENTIAL 02/22/2011 LILA MICROBIOLOGY LABORATORY MANAGER, BRYAN 278.01 OBESITY, MORBID (BMI >40) 02/22/2011 LILA MICROBIOLOGY LABORATORY MANAGER, BRYAN 401.1 HYPERTENSION, BENIGN ESSENTIAL 02/22/2011 LILA MICROBIOLOGY LABORATORY MANAGER, BRYAN 278.01 OBESITY, MORBID (BMI >40) 02/22/2011 LILA MICROBIOLOGY LABORATORY MANAGER, BRYAN 401.1 HYPERTENSION, BENIGN ESSENTIAL 02/22/2011 LILA MICROBIOLOGY LABORATORY MANAGER, BRYAN 278.01 OBESITY, MORBID (BMI >40) 02/22/2011 LILA MICROBIOLOGY LABORATORY MANAGER, BRYAN 401.1 HYPERTENSION, BENIGN ESSENTIAL 02/22/2011 LILA MICROBIOLOGY LABORATORY MANAGER, BRYAN 278.01 OBESITY, MORBID (BMI >40) 02/22/2011 LILA MICROBIOLOGY LABORATORY MANAGER, BRYAN 401.1 HYPERTENSION, BENIGN ESSENTIAL 02/22/2011 LILA MICROBIOLOGY LABORATORY MANAGER, BRYAN 278.01 OBESITY, MORBID (BMI >40) 02/22/2011 LILA MICROBIOLOGY LABORATORY MANAGER, BRYAN 401.1 HYPERTENSION, BENIGN ESSENTIAL 02/22/2011 ASAEL CHAPMAN ALVARO K 278.01 OBESITY, MORBID (BMI >40) 02/22/2011 ASAEL CHAPMAN ALVARO K 401.1 HYPERTENSION, BENIGN ESSENTIAL 02/22/2011 VYAS DO ALVARO K 278.01 OBESITY, MORBID (BMI >40) 02/22/2011 ALVARO VYAS DO 401.1 HYPERTENSION, BENIGN ESSENTIAL 02/22/2011 LILA MICROBIOLOGY LABORATORY MANAGER, BRYAN 278.01 OBESITY, MORBID (BMI >40) 02/22/2011 LILA MICROBIOLOGY LABORATORY MANAGER, BRYAN 401.1 HYPERTENSION, BENIGN ESSENTIAL 02/22/2011 LILA MICROBIOLOGY LABORATORY MANAGER, BRYAN 278.01 OBESITY, MORBID (BMI >40) 02/22/2011 LILA MICROBIOLOGY LABORATORY MANAGER, BRYAN 401.1 HYPERTENSION, BENIGN ESSENTIAL 02/22/2011 LILA MICROBIOLOGY LABORATORY MANAGER, BRYAN 278.01 OBESITY, MORBID (BMI >40) 02/22/2011 LILA MICROBIOLOGY LABORATORY MANAGER, BRYAN 401.1 HYPERTENSION, BENIGN ESSENTIAL 02/22/2011 LILA MICROBIOLOGY LABORATORY MANAGER, BRYAN 278.01 OBESITY, MORBID (BMI >40) 02/22/2011 LILA MICROBIOLOGY LABORATORY MANAGER, BRYAN 401.1 HYPERTENSION, BENIGN ESSENTIAL 02/22/2011 LILA MICROBIOLOGY LABORATORY MANAGER, BRYAN 278.01 OBESITY, MORBID (BMI >40) 02/22/2011 LILA MICROBIOLOGY LABORATORY MANAGER, BRYAN 401.1 HYPERTENSION, BENIGN ESSENTIAL 02/26/2011 TUSHAR [...] FINLEY APRN 244.9 UNSPECIFIED ACQUIRED HYPOTHYROIDISM 02/26/2011 AUFA FINLEY APRN 250.00 DIABETES MELLITUS WITHOUT MENTION [...] EXAM, ROUTINE, AT HEALTH CARE FACILITY 02/26/2011 TEOM SHARP APRNETTE 244.9 UNSPECIFIED ACQUIRED HYPOTHYROIDISM 02/26/2011 [...] UNSPECIFIED TYPE NOT STATED UNCONTROLLED 02/26/2011 LILA MICROBIOLOGY LABORATORY MANAGER, BRYAN 719.47 PAIN IN JOINT INVOLVING ANKLE AND FOOT 02/26/2011 LILA MICROBIOLOGY LABORATORY MANAGER, BRYAN V70.0 GENERAL MEDICAL EXAM, ROUTINE, AT HEALTH CARE FACILITY 02/26/2011 LILA MICROBIOLOGY LABORATORY MANAGER, BRYAN 244.9 UNSPECIFIED ACQUIRED HYPOTHYROIDISM 02/26/2011 LILA MICROBIOLOGY LABORATORY MANAGER, BRYAN 250.00 DIABETES MELLITUS WITHOUT MENTION OF COMPLICATION TYPE II OR UNSPECIFIED TYPE NOT STATED UNCONTROLLED 02/26/2011 LILA MICROBIOLOGY LABORATORY MANAGER BRYAN 719.47 PAIN IN JOINT INVOLVING ANKLE AND FOOT 02/26/2011 LILA MICROBIOLOGY LABORATORY MANAGER, BRYAN V70.0 GENERAL MEDICAL EXAM, ROUTINE, AT HEALTH CARE FACILITY 02/26/2011 LILA MICROBIOLOGY LABORATORY MANAGER, BRYAN 244.9 UNSPECIFIED ACQUIRED HYPOTHYROIDISM 02/26/2011 LILA MICROBIOLOGY LABORATORY MANAGER, BRYAN 250.00 DIABETES MELLITUS WITHOUT MENTION OF COMPLICATION TYPE II OR UNSPECIFIED TYPE NOT STATED UNCONTROLLED 02/26/2011 LILA CHAUDHRY BRYAN 719.47 PAIN IN JOINT INVOLVING ANKLE AND FOOT 02/26/2011 LILADINA CHAUDHRY, BRYAN V70.0 GENERAL MEDICAL EXAM, ROUTINE, AT HEALTH CARE FACILITY 02/26/2011 LILA MICROBIOLOGY LABORATORY MANAGER, BRYAN 244.9 UNSPECIFIED ACQUIRED HYPOTHYROIDISM 02/26/2011 LILA MICROBIOLOGY LABORATORY MANAGER, BRYAN 250.00 DIABETES MELLITUS WITHOUT MENTION OF COMPLICATION TYPE II OR UNSPECIFIED TYPE NOT STATED UNCONTROLLED 02/26/2011 LILADINA CHAUDHRY, BRYAN 719.47 PAIN IN JOINT INVOLVING ANKLE AND FOOT 02/26/2011 LILA CHAUDHRY BRYAN V70.0 GENERAL MEDICAL EXAM, ROUTINE, AT HEALTH CARE FACILITY 02/26/2011 ALVARO YVAS DO K 244.9 UNSPECIFIED ACQUIRED HYPOTHYROIDISM 02/26/2011 GEE VYAS DOA K 250.00 DIABETES MELLITUS WITHOUT MENTION OF COMPLICATION TYPE II OR UNSPECIFIED TYPE NOT STATED UNCONTROLLED 02/26/2011 ALVARO VYAS DO K 719.47 PAIN IN JOINT INVOLVING ANKLE AND FOOT 02/26/2011 GEE VYAS DOA K V70.0 GENERAL MEDICAL EXAM, ROUTINE, AT HEALTH CARE FACILITY 02/26/2011 LILA MICROBIOLOGY LABORATORY MANAGER, BRYAN 244.9 UNSPECIFIED ACQUIRED HYPOTHYROIDISM 02/26/2011 LILA MICROBIOLOGY LABORATORY MANAGER, BRYAN 250.00 DIABETES MELLITUS WITHOUT MENTION OF COMPLICATION TYPE II OR UNSPECIFIED TYPE NOT STATED UNCONTROLLED 02/26/2011 LILA MICROBIOLOGY LABORATORY MANAGER, BRYAN 719.47 PAIN IN JOINT INVOLVING ANKLE AND FOOT 02/26/2011 LILA MICROBIOLOGY LABORATORY MANAGER, BRYAN V70.0 GENERAL MEDICAL EXAM, ROUTINE, AT HEALTH CARE FACILITY 02/26/2011 LILA RICHA BRYAN 244.9 UNSPECIFIED ACQUIRED HYPOTHYROIDISM 02/26/2011 LILA MICROBIOLOGY LABORATORY MANAGER, BRYAN 250.00 DIABETES MELLITUS WITHOUT MENTION OF [...] BRYAN 244.9 UNSPECIFIED ACQUIRED HYPOTHYROIDISM 02/26/2011 LILA MICROBIOLOGY LABORATORY MANAGER, BRYAN 250.00 DIABETES MELLITUS WITHOUT MENTION OF COMPLICATION TYPE II OR UNSPECIFIED TYPE NOT STATED UNCONTROLLED 02/26/2011 LILA MICROBIOLOGY LABORATORY MANAGER, BRYAN 719.47 PAIN IN JOINT INVOLVING ANKLE AND FOOT 02/26/2011 LILA MICROBIOLOGY LABORATORY MANAGER, BRYAN V70.0 GENERAL MEDICAL EXAM, ROUTINE, AT [...] ROUTINE, AT HEALTH CARE FACILITY 02/26/2011 LILA MICROBIOLOGY LABORATORY MANAGER, BRYAN 244.9 UNSPECIFIED ACQUIRED HYPOTHYROIDISM 02/26/2011 LILA MICROBIOLOGY LABORATORY MANAGER, BRYAN 250.00 DIABETES MELLITUS WITHOUT MENTION OF COMPLICATION TYPE II OR UNSPECIFIED TYPE NOT STATED UNCONTROLLED 02/26/2011 LILA MICROBIOLOGY LABORATORY MANAGER, BRYAN 719.47 PAIN IN JOINT INVOLVING ANKLE AND FOOT 02/26/2011 LILA MICROBIOLOGY LABORATORY MANAGER, BRYAN V70.0 GENERAL MEDICAL EXAM, ROUTINE, AT HEALTH CARE FACILITY 02/26/2011 LILA MICROBIOLOGY LABORATORY MANAGER, BRYAN 244.9 UNSPECIFIED ACQUIRED HYPOTHYROIDISM 02/26/2011 LILA MICROBIOLOGY LABORATORY MANAGER, BRYAN 250.00 DIABETES MELLITUS WITHOUT MENTION OF COMPLICATION TYPE II OR UNSPECIFIED TYPE NOT STATED UNCONTROLLED 02/26/2011 LILA MICROBIOLOGY LABORATORY MANAGER, BRYAN 719.47 PAIN IN JOINT INVOLVING ANKLE AND FOOT 02/26/2011 LILA MICROBIOLOGY LABORATORY MANAGER, BRYAN V70.0 GENERAL MEDICAL EXAM, ROUTINE, AT HEALTH CARE FACILITY 02/26/2011 LILA MICROBIOLOGY LABORATORY MANAGER, BRYAN 244.9 UNSPECIFIED ACQUIRED HYPOTHYROIDISM 02/26/2011 LILA MICROBIOLOGY LABORATORY MANAGER, BRYAN 250.00 DIABETES MELLITUS WITHOUT MENTION OF COMPLICATION TYPE II OR UNSPECIFIED TYPE NOT STATED UNCONTROLLED 02/26/2011 ILLA MICROBIOLOGY LABORATORY MANAGER, BRYAN 719.47 PAIN IN JOINT INVOLVING ANKLE AND FOOT 02/26/2011 LILA MICROBIOLOGY LABORATORY MANAGER, BRYAN V70.0 GENERAL MEDICAL EXAM, ROUTINE, AT HEALTH CARE FACILITY 02/26/2011 LILA MICROBIOLOGY LABORATORY MANAGER, BRYAN 244.9 UNSPECIFIED ACQUIRED HYPOTHYROIDISM 02/26/2011 LILA MICROBIOLOGY LABORATORY MANAGER, BRYAN 250.00 DIABETES MELLITUS WITHOUT MENTION OF COMPLICATION TYPE II OR UNSPECIFIED TYPE NOT STATED UNCONTROLLED 02/26/2011 LILA MICROBIOLOGY LABORATORY MANAGER, BRYAN 719.47 PAIN IN JOINT INVOLVING ANKLE [...] BOSWELL V58.69 MEDICATION HIGH RISK 03/03/2011 FINLEY MICROBIOLOGY LABORATORY MANAGER, AFUA BOSWELL V58.69 MEDICATION HIGH RISK 03/03/2011 FINLEY RICHA AFUA BOSWELL V58.69 MEDICATION HIGH RISK 03/03/2011 FINLEY MICROBIOLOGY LABORATORY MANAGER, AFUA BOSWELL V58.69 MEDICATION HIGH RISK 03/03/2011 FINLEY RICHA AFUA BOSWELL V58.69 MEDICATION HIGH RISK 03/03/2011 FINLEY MICROBIOLOGY LABORATORY MANAGER, AFUA BOSWELL V58.69 MEDICATION HIGH RISK 03/03/2011 FINLEY MICROBIOLOGY LABORATORY MANAGERAFUA V58.69 MEDICATION HIGH RISK 03/03/2011 LILA MICROBIOLOGY LABORATORY MANAGER, BRYAN V58.69 MEDICATION HIGH RISK 03/03/2011 ALVARO VYAS DO K V58.69 MEDICATION HIGH RISK 03/03/2011 LILA MICROBIOLOGY LABORATORY MANAGER, BRYAN V58.69 MEDICATION HIGH RISK 03/03/2011 LILA MICROBIOLOGY LABORATORY MANAGER, BRYAN V58.69 MEDICATION HIGH RISK 03/03/2011 LILA MICROBIOLOGY LABORATORY MANAGER, BRYAN V58.69 MEDICATION HIGH RISK 03/03/2011 LILA MICROBIOLOGY LABORATORY MANAGER, BRYAN V58.69 MEDICATION HIGH RISK 03/03/2011 ALVARO VYAS DO K V58.69 MEDICATION HIGH RISK 03/03/2011 LILA MICROBIOLOGY LABORATORY MANAGER, BRYAN V58.69 MEDICATION HIGH RISK 03/03/2011 LILA MICROBIOLOGY LABORATORY MANAGER, BRYAN V58.69 MEDICATION HIGH RISK 03/03/2011 LILA MICROBIOLOGY LABORATORY MANAGER, BRYAN V58.69 MEDICATION HIGH RISK 03/03/2011 LILA MICROBIOLOGY LABORATORY MANAGER, BRYAN V58.69 MEDICATION HIGH RISK 03/03/2011 LILA MICROBIOLOGY LABORATORY MANAGER, BRYAN V58.69 MEDICATION HIGH RISK 03/03/2011 ASAEL CHAPMAN ALVARO K V58.69 MEDICATION HIGH RISK 03/03/2011 ASAEL CHAPMAN ALVARO K V58.69 MEDICATION HIGH RISK 03/03/2011 LILA MICROBIOLOGY LABORATORY MANAGER, BRYAN V58.69 MEDICATION HIGH RISK 03/03/2011 LILA MICROBIOLOGY LABORATORY MANAGER, BRYAN V58.69 MEDICATION HIGH RISK 03/03/2011 LILA MICROBIOLOGY LABORATORY MANAGER, RBYAN V58.69 MEDICATION HIGH RISK 03/03/2011 LILA MICROBIOLOGY LABORATORY MANAGER, BRYAN V58.69 MEDICATION HIGH RISK 03/03/2011 LILA MICROBIOLOGY LABORATORY MANAGER, BRYAN V58.69 MEDICATION HIGH RISK 03/20/2011 Ot [...] 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 01/19/2013 LILA MICROBIOLOGY LABORATORY MANAGER, BRYAN 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 01/19/2013 ALVARO VYAS DO 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 01/19/2013 LILA MICROBIOLOGY LABORATORY MANAGER, BRYAN 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 01/19/2013 LILA MICROBIOLOGY LABORATORY MANAGER, BRYAN 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 01/19/2013 LILA MICROBIOLOGY LABORATORY MANAGER, BRYAN 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 01/19/2013 LILA MICROBIOLOGY LABORATORY MANAGER, BRYAN 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 01/19/2013 ALVARO VYAS DO K 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 01/19/2013 LILA MICROBIOLOGY LABORATORY MANAGER, BRYAN 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 01/19/2013 LILA MICROBIOLOGY LABORATORY MANAGER, BRYAN 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 01/19/2013 LILA MICROBIOLOGY LABORATORY MANAGER, BRYAN 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 01/19/2013 LILA MICROBIOLOGY LABORATORY MANAGER, BRYAN 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 01/19/2013 LILA MICROBIOLOGY LABORATORY MANAGER, BRYAN 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 01/19/2013 ALVARO VYAS DO K 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 01/19/2013 ALVARO VYAS DO K 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 01/19/2013 LILA MICROBIOLOGY LABORATORY MANAGER, BRYAN 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 01/19/2013 LILA MICROBIOLOGY LABORATORY MANAGER, BRYAN 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 01/19/2013 LILA MICROBIOLOGY LABORATORY MANAGER, BRYAN 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 01/19/2013 LILA MICROBIOLOGY LABORATORY MANAGER, BRYAN 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 01/19/2013 LILA MICROBIOLOGY LABORATORY MANAGER, BRYAN 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 02/08/2013 [...] 965.8 POIS-ANALGES/ ANTIPYR NEC 02/10/2013 Ot 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 02/10/2013 Ot 969.3 POISON- ANTIPSYCHOTIC [...] FINLEY APRN 309.81 AN PTSD 07/18/2013 LILA MICROBIOLOGY LABORATORY MANAGER, BRYAN 309.81 AN PTSD 07/18/2013 VYAS DO ALVARO K 309.81 AN PTSD 07/18/2013 LILA MICROBIOLOGY LABORATORY MANAGER, RBYAN 309.81 AN PTSD 07/18/2013 LILA MICROBIOLOGY LABORATORY MANAGER, BRYAN 309.81 AN PTSD 07/18/2013 LILA MICROBIOLOGY LABORATORY MANAGER, BRYAN 309.81 AN PTSD 07/18/2013 LILA MICROBIOLOGY LABORATORY MANAGER, BRYAN 309.81 AN PTSD 07/18/2013 VYAS GEE CHAPMANA K 309.81 AN PTSD 07/18/2013 LILA MICROBIOLOGY LABORATORY MANAGER, BRYAN 309.81 AN PTSD 07/18/2013 LILA MICROBIOLOGY LABORATORY MANAGER, BRYAN 309.81 AN PTSD 07/18/2013 LILA MICROBIOLOGY LABORATORY MANAGER, BRYAN 309.81 AN PTSD 07/18/2013 LILA MICROBIOLOGY LABORATORY MANAGER, BRYAN 309.81 AN PTSD 07/18/2013 LILA MICROBIOLOGY LABORATORY MANAGER, BRYAN 309.81 AN PTSD 07/18/2013 VYAS GEE CHAPMANA K 309.81 AN PTSD 07/18/2013 GEE VYAS DOA K 309.81 AN PTSD 07/18/2013 LILA MICROBIOLOGY LABORATORY MANAGER, BRYAN 309.81 AN PTSD 07/18/2013 LILA MICROBIOLOGY LABORATORY MANAGER, BRYAN 309.81 AN PTSD 07/18/2013 LILA MICROBIOLOGY LABORATORY MANAGER, BRYAN 309.81 AN PTSD 07/18/2013 LILA MICROBIOLOGY LABORATORY MANAGER, BRYAN 309.81 AN PTSD 07/18/2013 LILA MICROBIOLOGY LABORATORY MANAGER, BRYAN 309.81 AN PTSD 09/03/2013 AFUA FINLEY APRN 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 09/03/2013 FINLEY AFUA CHAUDHRY 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 09/03/2013 FINLEY MICROBIOLOGY LABORATORY MANAGERAFUA BundyH 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 09/03/2013 FINLEY MICROBIOLOGY LABORATORY MANAGERAFUA BundyH 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 09/03/2013 FINLEY AFUA CHAUDHRYH 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 09/03/2013 FINLEY MICROBIOLOGY LABORATORY MANAGERAFUA BundyH 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 09/03/2013 LILA MICROBIOLOGY LABORATORY MANAGER, BRYAN 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 09/03/2013 ALVARO VYAS DO K 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 09/03/2013 LILA MICROBIOLOGY LABORATORY MANAGER, BRYAN 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 09/03/2013 LILA MICROBIOLOGY LABORATORY MANAGER, BRYAN 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 09/03/2013 LILA MICROBIOLOGY LABORATORY MANAGER, BRYAN 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 09/03/2013 LILA MICROBIOLOGY LABORATORY MANAGER, BRYAN 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 09/03/2013 VYAS ALVARO K 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 09/03/2013 LILA MICROBIOLOGY LABORATORY MANAGER, BRYAN 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 09/03/2013 LILA MICROBIOLOGY LABORATORY MANAGER, BRYAN 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 09/03/2013LILA MICROBIOLOGY LABORATORY MANAGER, BRYAN 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 09/03/2013LILA MICROBIOLOGY LABORATORY MANAGER, BRYAN 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 09/03/2013 LILA MICROBIOLOGY LABORATORY MANAGER, RBYAN 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 09/03/2013 ASAEL CHAPMAN ALVARO K 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 09/03/2013 VYAS , ALVARO K 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 09/03/2013 LILA MICROBIOLOGY LABORATORY MANAGER, BRYAN 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 09/03/2013 LILA MICROBIOLOGY LABORATORY MANAGER, BRYAN 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 09/03/2013LILA MICROBIOLOGY LABORATORY MANAGER, BRYAN 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 09/03/2013LILA MICROBIOLOGY LABORATORY MANAGER, BRYAN 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 09/03/2013 LILA MICROBIOLOGY LABORATORY MANAGER, BRYAN 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 [...] 300.3 AN OBCESS COMP DIS 09/25/2013 LILA MICROBIOLOGY LABORATORY MANAGER, BRYAN 300.3 AN OBCESS COMP DIS 09/25/2013 VYAS DO, ALVARO K 300.3 AN OBCESS COMP DIS 09/25/2013 LILA MICROBIOLOGY LABORATORY MANAGER, BRYAN 300.3 AN OBCESS COMP DIS 09/25/2013 LILA MICROBIOLOGY LABORATORY MANAGER, BRYAN 300.3 AN OBCESS COMP DIS 09/25/2013 LILA MICROBIOLOGY LABORATORY MANAGER, BRYAN 300.3 AN OBCESS COMP DIS 09/25/2013 LILA MICROBIOLOGY LABORATORY MANAGER, BRYAN 300.3 AN OBCESS COMP DIS 09/25/2013 VYAS DO, ALVARO K 300.3 AN OBCESS COMP DIS 09/25/2013 LILA MICROBIOLOGY LABORATORY MANAGER, BRYAN 300.3 AN OBCESS COMP DIS 09/25/2013 LILA MICROBIOLOGY LABORATORY MANAGER, BRYAN 300.3 AN OBCESS COMP DIS 09/25/2013 LILA MICROBIOLOGY LABORATORY MANAGER, BRYAN 300.3 AN OBCESS COMP DIS 09/25/2013 LILA MICROBIOLOGY LABORATORY MANAGER, BRYAN 300.3 AN OBCESS COMP DIS 09/25/2013 LILA MICROBIOLOGY LABORATORY MANAGER, BRYAN 300.3 AN OBCESS COMP DIS 09/25/2013 VYAS DO, ALVARO K 300.3 AN OBCESS COMP DIS 09/25/2013 VYAS DO, ALVARO K 300.3 AN OBCESS COMP DIS 09/25/2013 LILA MICROBIOLOGY LABORATORY MANAGER, BRYAN 300.3 AN OBCESS COMP DIS 09/25/2013 LILA MICROBIOLOGY LABORATORY MANAGER, BRYAN 300.3 AN OBCESS COMP DIS 09/25/2013 LILA MICROBIOLOGY LABORATORY MANAGER, BRYAN 300.3 AN OBCESS COMP DIS 09/25/2013 LILA MICROBIOLOGY LABORATORY MANAGER, BRYAN 300.3 AN OBCESS COMP DIS 09/25/2013 [...] DO 296.80 MO BIPOLAR NOS 03/08/2014 LILA MICROBIOLOGY LABORATORY MANAGER, BRYAN 296.80 MO BIPOLAR NOS 03/08/2014 LILA MICROBIOLOGY LABORATORY MANAGER, BRYAN 296.80 MO BIPOLAR NOS 03/08/2014 LILA MICROBIOLOGY LABORATORY MANAGER, BRYAN 296.80 MO BIPOLAR NOS 03/08/2014 LILA MICROBIOLOGY LABORATORY MANAGER, BRYAN 296.80 MO BIPOLAR NOS 03/08/2014 VYAS DO ALVARO K 296.80 MO BIPOLAR NOS 03/08/2014 LILA MICROBIOLOGY LABORATORY MANAGER, BRYAN 296.80 MO BIPOLAR NOS 03/08/2014 LILA MICROBIOLOGY LABORATORY MANAGER, BRYAN 296.80 MO BIPOLAR NOS 03/08/2014 LILA MICROBIOLOGY LABORATORY MANAGER, BRYAN 296.80 MO BIPOLAR NOS 03/08/2014 LILA MICROBIOLOGY LABORATORY MANAGER, BRYAN 296.80 MO BIPOLAR NOS 03/08/2014 LILA MICROBIOLOGY LABORATORY MANAGER, BRYAN 296.80 MO BIPOLAR NOS 03/08/2014 VYAS DO, ALVARO K 296.80 MO BIPOLAR NOS 03/08/2014 VYAS DO, ALVARO K 296.80 MO BIPOLAR NOS 03/08/2014 LILA MICROBIOLOGY LABORATORY MANAGER, BRYAN 296.80 MO BIPOLAR NOS 03/08/2014 LILA MICROBIOLOGY LABORATORY MANAGER, BRYAN 296.80 MO BIPOLAR NOS 03/08/2014 LILA MICROBIOLOGY LABORATORY MANAGER, BRYAN 296.80 MO BIPOLAR NOS 03/08/2014 LILA MICROBIOLOGY LABORATORY MANAGER, BRYAN 296.80 MO BIPOLAR NOS 03/08/2014 LILA MICROBIOLOGY LABORATORY MANAGER, BRYAN 296.80 MO BIPOLAR NOS 03/11/2014 FINLEY RICHA AFUA BOSWELL 296.80 MO BIPOLAR NOS 03/11/2014 FINLEY RICHA AFUA BOSWELL 300.02 AN GEN ANXIETY 03/11/2014 FINLEY RICHA AFUA BOSWELL 314.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 03/11/2014 LILA MICROBIOLOGY LABORATORY MANAGER, BRYAN 296.80 MO BIPOLAR NOS 03/11/2014 LILA MICROBIOLOGY LABORATORY MANAGER, BRYAN 300.02 AN GEN ANXIETY 03/11/2014 LILA MICROBIOLOGY LABORATORY MANAGER, BRYAN 314.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 03/11/2014 VYAS GEE CHAPMANA K 296.80 MO BIPOLAR NOS 03/11/2014 VYAS DO ALVARO K 300.02 AN GEN ANXIETY 03/11/2014 VYAS DO ALVARO K 314.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 03/11/2014 LILA MICROBIOLOGY LABORATORY MANAGER, BRYAN 296.80 MO BIPOLAR NOS 03/11/2014 LILA MICROBIOLOGY LABORATORY MANAGER, BRYAN 300.02 AN GEN ANXIETY 03/11/2014 LILA MICROBIOLOGY LABORATORY MANAGER, BRYAN 314.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 03/11/2014 LILA MICROBIOLOGY LABORATORY MANAGER, BRYAN 296.80 MO BIPOLAR NOS 03/11/2014 LILA MICROBIOLOGY LABORATORY MANAGER, BRYAN 300.02 AN GEN ANXIETY 03/11/2014 LILA MICROBIOLOGY LABORATORY MANAGER, BRYAN 314.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 03/11/2014 LILA MICROBIOLOGY LABORATORY MANAGER, BRYAN 296.80 MO BIPOLAR NOS 03/11/2014 LILA MICROBIOLOGY LABORATORY MANAGER, BRYAN 300.02 AN GEN ANXIETY 03/11/2014 LILA MICROBIOLOGY LABORATORY MANAGER, BRYAN 314.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 03/11/2014 LILA MICROBIOLOGY LABORATORY MANAGER, BRYAN 296.80 MO BIPOLAR NOS 03/11/2014 LILA MICROBIOLOGY LABORATORY MANAGER, BRYAN 300.02 AN GEN ANXIETY 03/11/2014 LILA MICROBIOLOGY LABORATORY MANAGER, BRYAN 314.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 03/11/2014 GEE VYAS DOA K 296.80 MO BIPOLAR NOS 03/11/2014 VYAS GEE CHAPMANA K 300.02 AN GEN ANXIETY 03/11/2014 VYAS GEE CHAPMANA K 314.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 03/11/2014 LILA MICROBIOLOGY LABORATORY MANAGER, BRYAN 296.80 MO BIPOLAR NOS 03/11/2014 LILA MICROBIOLOGY LABORATORY MANAGER, BRYAN 300.02 AN GEN ANXIETY 03/11/2014 LILA MICROBIOLOGY LABORATORY MANAGER, BRYAN 314.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 03/11/2014 LILA MICROBIOLOGY LABORATORY MANAGER, BRYAN 296.80 MO BIPOLAR NOS 03/11/2014 LILA MICROBIOLOGY LABORATORY MANAGER, BRYAN 300.02 AN GEN ANXIETY 03/11/2014 LILA MICROBIOLOGY LABORATORY MANAGER, BRYAN 314.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 03/11/2014 LILA MICROBIOLOGY LABORATORY MANAGER, BRYAN 296.80 MO BIPOLAR NOS 03/11/2014 LILA MICROBIOLOGY LABORATORY MANAGER, BRYAN 300.02 AN GEN ANXIETY 03/11/2014 LILA MICROBIOLOGY LABORATORY MANAGER, BRYAN 314.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 03/11/2014 LILA MICROBIOLOGY LABORATORY MANAGER, BRYAN 296.80 MO BIPOLAR NOS 03/11/2014 LILA MICROBIOLOGY LABORATORY MANAGER, BRYAN 300.02 AN GEN ANXIETY 03/11/2014 LILA MICROBIOLOGY LABORATORY MANAGER, BRYAN 314.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 03/11/2014 LILA MICROBIOLOGY LABORATORY MANAGER, BRYAN 296.80 MO BIPOLAR NOS 03/11/2014 LILA MICROBIOLOGY LABORATORY MANAGER, BRYAN 300.02 AN GEN ANXIETY 03/11/2014 LILA MICROBIOLOGY LABORATORY MANAGER, BRYAN 314.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 03/11/2014 GEE VYAS DOA K 296.80 MO BIPOLAR NOS 03/11/2014 VYAS GEE CHAPMANA K 300.02 AN GEN ANXIETY 03/11/2014 VYAS GEE CHAPMANA K 314.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 03/11/2014 ALVARO VYAS DO K 296.80 MO BIPOLAR NOS 03/11/2014 ASAEL CHAPMAN ALVARO K 300.02 AN GEN ANXIETY 03/11/2014 ASAEL CHAPMAN ALVARO K 314.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 03/11/2014 LILA MICROBIOLOGY LABORATORY MANAGER, BRYAN 296.80 MO BIPOLAR NOS 03/11/2014 LILA MICROBIOLOGY LABORATORY MANAGER, BRYAN 300.02 AN GEN ANXIETY 03/11/2014 LILA MICROBIOLOGY LABORATORY MANAGER, BRYAN 314.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 03/11/2014 LILA MICROBIOLOGY LABORATORY MANAGER, BRYAN 296.80 MO BIPOLAR NOS 03/11/2014 LILA MICROBIOLOGY LABORATORY MANAGER, BRYAN 300.02 AN GEN ANXIETY 03/11/2014 LILA MICROBIOLOGY LABORATORY MANAGER, BRYAN 314.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 03/11/2014 LILA MICROBIOLOGY LABORATORY MANAGER, BRYAN 296.80 MO BIPOLAR NOS 03/11/2014 LILA MICROBIOLOGY LABORATORY MANAGER, BRYAN 300.02 AN GEN ANXIETY 03/11/2014 LILA MICROBIOLOGY LABORATORY MANAGER, BRYAN 314.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 03/11/2014 LILA MICROBIOLOGY LABORATORY MANAGER, BRYAN 296.80 MO BIPOLAR NOS 03/11/2014 LILA MICROBIOLOGY LABORATORY MANAGER, BRYAN 300.02 AN GEN ANXIETY 03/11/2014 LILA MICROBIOLOGY LABORATORY MANAGER, BRYAN 314.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 03/11/2014 LILA MICROBIOLOGY LABORATORY MANAGER, BRYAN 296.80 MO BIPOLAR NOS 03/11/2014 LILA MICROBIOLOGY LABORATORY MANAGER, BRYAN 300.02 AN GEN ANXIETY 03/11/2014 LILA MICROBIOLOGY LABORATORY MANAGER, BRYAN 314.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 05/02/2014 ESAU BERRY DO Ot 250.00 DIAB [place] WO COMPL, TYPE II OR UNSPEC TY 05/02/2014 ESAU BERRY DO Ot 575.11 CHRONIC CHOLECYSTITIS 06/05/2014 LILA MICROBIOLOGY LABORATORY MANAGER, BRYAN 295.11 P SCHIZO DISORG SUBCHRONIC 06/05/2014 LILA MICROBIOLOGY LABORATORY MANAGER, BRYAN 295.11 P SCHIZO DISORG SUBCHRONIC 06/05/2014 LILA MICROBIOLOGY LABORATORY MANAGER, BRYAN 295.11 P SCHIZO DISORG SUBCHRONIC 06/05/2014 LILA MICROBIOLOGY LABORATORY MANAGER, BRYAN 295.11 P SCHIZO DISORG SUBCHRONIC 06/05/2014 LILA MICROBIOLOGY LABORATORY MANAGER, BRYAN 295.11 P SCHIZO DISORG SUBCHRONIC 06/05/2014 ALVARO VYAS DO K 295.11 P SCHIZO DISORG SUBCHRONIC 06/05/2014 ALVARO VYAS DO 295.11 P SCHIZO DISORG SUBCHRONIC 06/05/2014 LILA MICROBIOLOGY LABORATORY MANAGER, BRYAN 295.11 P SCHIZO DISORG SUBCHRONIC 06/05/2014 LILA MICROBIOLOGY LABORATORY MANAGER, BRYAN 295.11 P SCHIZO DISORG SUBCHRONIC 06/05/2014 LILA MICROBIOLOGY LABORATORY MANAGER, BRYAN 295.11 P SCHIZO DISORG SUBCHRONIC 06/05/2014 LILA MICROBIOLOGY LABORATORY MANAGER, BRYAN 295.11 P SCHIZO DISORG SUBCHRONIC 06/05/2014 LILA MICROBIOLOGY LABORATORY MANAGER, BRYAN 295.11 P SCHIZO DISORG SUBCHRONIC 06/19/2014 TANYA GONZALEZ MICROBIOLOGY LABORATORY MANAGER Ot 784.0 HEADACHE 07/14/2014 DAX GUERRA, DARRICK Fiore Ot 346.90 MIGRAINE UNSPECIFIED W/O INTRACT MGRN W/ 09/18/2014 ADAIR LUCERO MANAGER DESKTOP Ot 250.00 09/18/2014 ADAIR LUCERO MANAGER DESKTOP Ot V58.67 10/07/2014 ADAIR LUCERO MANAGER DESKTOP Ot 250.00 10/07/2014 ADAIR LUCERO MANAGER DESKTOP Ot V58.67 12/06/2014 OLGA LUCERO MD R [...] 12/06/2014 OLGA LUCERO MD R Ot V06.1 [id number], COMBINED [ 12/06/2014 OLGA LUCERO MD R Ot V58.67 LONG-TERM (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 INSULIN 06/12/2015 GAURANG STANTON DO Ot 339.12 CHRONIC TENSION TYPE HEADACHE 06/12/2015 GAURANG STANTON DO Ot 784.0 HEADACHE 07/30/2015 JAZMINE GUERRA, OLGA R Ot 786.2 08/05/2015 JAZMINE GUERRA, OLGA R Ot 786.2 08/11/2015 JAZMINE GUERRA, OLGA R Ot R19.7 08/19/2015 ADAIR LUCERO MANAGER DESKTOP Ot E11.9 09/01/2015 ADAIR LUCERO MANAGER DESKTOP Ot E11.9 09/23/2015 JAZMINE GUERRA, OLGA R [...] GUERRA, OLGA R Ot 719.7 01/29/2016 TUSHARAFUA MANAGER DESKTOP Ot V58.69 01/29/2016 TUSHARAFUA MANAGER DESKTOP Ot V58.83 01/29/2016 JAZMINE ADAIR Kya MANAGER DESKTOP Ot 250.00 01/29/2016 JAZMINE ADAIR Boland MANAGER DESKTOP Ot 244.9 01/29/2016 LIZZIE LUCEROAN Kya MANAGER DESKTOP Ot 250.00 01/29/2016 JAZMINE GUERRA, OLGA R Ot 571.8 01/29/2016 JAZMINE GUERRA, OLGA R Ot 789.01 01/29/2016 JAZMINE GUERRA, OLGA R Ot 789.01 01/29/2016 JAZMINE GUERRA, OLGA R Ot 793.3 01/29/2016 ELSIE ESAU CHAPMAN Ot 575.11 01/29/2016 [facility]72.63 01[facility]29/2016 [facility] V74.8 01/29/2016 JAZMINE ADAIR Kya MANAGER DESKTOP Ot 250.01 01/29/2016 JAZMINE ADAIR Kya MANAGER DESKTOP Ot 250.00 01/29/2016 ADAIR LUCERO MANAGER DESKTOP Ot V58.67 01/29/2016 JAZMINE GUERRA, OLGA R Ot 786.2 01/29/2016 ADAIR LUCERO MANAGER DESKTOP Ot E11.9 01/29/2016 SUYAPA GUERRA, JEAN-CLAUDEAASAHRA Ot [...] FASCIA AND TENDON OF L 05/25/2016 ROMY GAURAGN CHAPMAN K Ot X58.XXXA EXPOSURE TO OTHER SPECIFIED FACTORS, INI 05/25/2016 GAURANG STANTON DO Ot Y92.[address] IN SINGLE-FAMILY (PRIVATE) [place]ISH 05/25/2016 GAURANG STANTON DO K Ot Y99.8 OTHER EXTERNAL CAUSE STATUS 05/26/2016 ROMY GAUARNG CHAPMAN Ot F17.210 NICOTINE DEPENDENCE, CIGARETTES, UNCOMPL 05/26/2016 ROMY GAURANG CHAPMAN Ot M54.5 LOW BACK PAIN 05/26/2016 ROMY GAURANG CHAPMAN Ot N39.0 URINARY TRACT INFECTION, SITE NOT SPECIF 05/26/2016 ROMY GAURANG CHAPMAN K Ot S39.012A STRAIN OF MUSCLE, FASCIA AND TENDON OF L 05/26/2016 ROMY GAURANG CHAPMAN K Ot X58.XXXA EXPOSURE TO OTHER SPECIFIED FACTORS, INI 05/26/2016 GAURANG SATNTON DO K Ot Y92.[address] IN SINGLE-FAMILY (PRIVATE) PARISH 05/26/2016 RMOY GAURANG K Ot Y99.8 OTHER EXTERNAL CAUSE [...] 719.7 DIFFICULTY IN WALKING 06/04/2016 AFUA FINLEY MANAGER DESKTOP Ot V58.69 OT MED,LT,CURRENT USE 06/04/2016 AFUA FINLEY MANAGER DESKTOP Ot V58.83 ENCOUNTER FOR THERAPEUTIC DRUG MONITORIN 06/04/2016 ADAIR LUCERO MANAGER DESKTOP Ot 250.00 DIAB [place] WO COMPL, TYPE II OR UNSPEC TY 06/04/2016 ADAIR LUCERO MANAGER DESKTOP Ot 244.9 HYPOTHYROIDISM NOS 06/04/2016 ADAIR LUCERO MANAGER DESKTOP Ot 250.00 DIAB [place] WO COMPL, TYPE [...] V74.8 SCREEN-BACTERIAL DIS NEC 06/04/2016 ADAIR LUCERO MANAGER DESKTOP Ot 250.01 DIAB [place] WO COMPL, TYPE I [JUVENILE TYP 06/04/2016 ADAIR LUCERO MANAGER DESKTOP Ot 250.00 DIAB [place] WO COMPL, TYPE [...] 719.7 DIFFICULTY IN WALKING 09/23/2016 AFUA FINLEY MANAGER DESKTOP Ot V58.69 OT MED,LT,CURRENT USE 09/23/2016 AFUA FINLEY Ot V58.83 ENCOUNTER FOR THERAPEUTIC DRUG MONITORIN 09/23/2016 ADAIR LUCERO MANAGER DESKTOP Ot 250.00 DIAB [place] WO COMPL, TYPE II OR UNSPEC TY 09/23/2016 ADAIR LUCERO MANAGER DESKTOP Ot 244.9 HYPOTHYROIDISM NOS 09/23/2016 ADAIR LUCERO MANAGER DESKTOP Ot 250.00 DIAB [place] WO COMPL, TYPE [...] TYPE I [JUVENILE TYP 09/23/2016 ADAIR LUCERO MANAGER DESKTOP Ot 250.00 DIAB [place] WO COMPL, TYPE [...] DIABETES MELLITUS WITHOUT COMPLIC 09/23/2016 ADAIR LUCERO MANAGER DESKTOP Ot Z79.4 VEHICLE MAINTENANCE SUPERVISOR (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 INSULIN 09/24/2016 ADAIR LUCERO MANAGER DESKTOP Ot E11.9 TYPE 2 DIABETES MELLITUS WITHOUT COMPLIC 09/24/2016 ADAIR LUCEROP Ot Z79.4 VEHICLE MAINTENANCE SUPERVISOR (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 INSULIN 09/29/2016 ADAIR LUCERO MANAGER DESKTOP Ot E11.9 TYPE 2 DIABETES MELLITUS WITHOUT COMPLIC 09/29/2016 ADAIR LUCEROP Ot Z79.4 VEHICLE MAINTENANCE SUPERVISOR (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 INSULIN 10/21/2016 SEGLIE, ADAIR M MANAGER DESKTOP Ot E11.9 TYPE 2 DIABETES MELLITUS WITHOUT COMPLIC 10/21/2016 ADAIR LUCERO MANAGER DESKTOP Ot Z79.4 CORRECTION (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 INSULIN 10/26/2016 ADAIR LUCERO MANAGER DESKTOP Ot E11.9 TYPE 2 DIABETES MELLITUS WITHOUT COMPLIC 10/26/2016 ADAIR LUCERO MANAGER DESKTOP Ot Z79.4 CORRECTION (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 INSULIN 01/25/2017 FRANCISCO ALAN DO Ot E11.65 TYPE 2 DIABETES MELLITUS WITH HYPERGLYCE 01/25/2017 FRANCISCO ALAN DO Ot Z79.4 CORRECTION (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 INSULIN 01/25/2017 FRANCISCO ALAN DO Ot Z79.84 VEHICLE MAINTENANCE SUPERVISOR (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 ORAL HYPOGLYC 01/25/2017 FRANCISCO ALAN DO Ot Z79.899 OTHER CORRECTION (CURRENT) DRUG THERAPY 01/26/2017 FRANCISCO ALAN DO Ot E11.65 TYPE 2 DIABETES MELLITUS WITH HYPERGLYCE 01/26/2017 FRANCISCO ALAN DO Ot Z79.4 VEHICLE MAINTENANCE SUPERVISOR (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 INSULIN 01/26/2017 FRANCISCO ALAN DO Ot Z79.84 VEHICLE MAINTENANCE SUPERVISOR (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 ORAL HYPOGLYC 01/26/2017 FRANCISCO ALAN DO Ot Z79.899 OTHER VEHICLE MAINTENANCE SUPERVISOR (CURRENT) DRUG THERAPY 03/24/2017 Ot 250.00 DIAB [...] WITHOUT 05/03/2017 JOHN LEE MD Ot Z79.4 VEHICLE MAINTENANCE SUPERVISOR (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 INSULIN 05/03/2017 JOHN LEE MD Ot Z79.84 CORRECTION (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 ORAL HYPOGLYC 05/03/2017 JOHN [...] WITHOUT 05/03/2017 JOHN LEE MD Ot Z79.4 VEHICLE MAINTENANCE SUPERVISOR (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 INSULIN 05/03/2017 JOHN LEE MD Ot Z79.84 VEHICLE MAINTENANCE SUPERVISOR (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 ORAL HYPOGLYC 05/03/2017 JOHN [...] UNSPECIFIED 07/09/2017 IVORY DICKSON MD Ot Z79.4 CORRECTION (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 INSULIN 07/09/2017 IVORY DICKSON MD Ot Z79.84 CORRECTION (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 ORAL HYPOGLYC 07/09/2017 IVORY [...] 719.7 DIFFICULTY IN WALKING 07/09/2017 AFUA FINLEY MANAGER DESKTOP Ot V58.69 OTH MED,LT,CURRENT USE 07/09/2017 AFUA FINLEY MANAGER DESKTOP Ot V58.83 ENCOUNTER FOR THERAPEUTIC DRUG MONITORIN 07/09/2017 ADAIR LUCERO MANAGER DESKTOP Ot 250.00 DIAB [place] WO COMPL, TYPE II OR UNSPEC TY 07/09/2017 ADAIR LUCERO MANAGER DESKTOP Ot 244.9 HYPOTHYROIDISM NOS 07/09/2017 ADAIR LUCERO MANAGER DESKTOP Ot 250.00 DIAB [place] WO COMPL, TYPE [...] WITHOUT COMPLIC 07/09/2017 ADAIR LUCERO Ot Z79.4 CORRECTION (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 INSULIN 07/11/2017 IVORY DICKSON [...] UNSPECIFIED 07/11/2017 IVORY DICKSON MD Ot Z79.4 CORRECTION (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 INSULIN 07/11/2017 IVORY DICKSON MD Ot Z79.84 VEHICLE MAINTENANCE SUPERVISOR (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 ORAL HYPOGLYC 07/11/2017 IVORY [...] PAIN 07/29/2017 IVORY DICKSON MD Ot Z79.4 VEHICLE MAINTENANCE SUPERVISOR (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 INSULIN 07/29/2017 IVORY DICKSON MD Ot Z87.440 PERSONAL HISTORY OF URINARY (TRACT) INFE 07/29/2017 IVORY DICKSON MD Ot Z90.49 ACQUIRED ABSENCE OF OTHER SPECIFIED PART 07/29/2017 IVORY DICKSON MD Ot Z91.5 PERSONAL HISTORY OF SELF-HARM 08/12/2017 OLGA LUCERO MD Ot 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, UNSPEC 08/31/2017 OLAG LUCERO MD Ot E22.9 HYPERFUNCTION OF PITUITARY [...] V58.69 OTH MED,LT,CURRENT USE 12/23/2017 AFUA FINLEY MANAGER DESKTOP Ot V58.83 ENCOUNTER FOR THERAPEUTIC DRUG MONITORIN [...] V74.8 SCREEN-BACTERIAL DIS NEC 12/23/2017 ADAIR LUCERO MANAGER DESKTOP Ot 250.01 DIAB [place] WO COMPL, TYPE [...] WITHOUT COMPLIC 12/23/2017 ADAIR LUCERO Ot Z79.4 CORRECTION (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 INSULIN 12/23/2017 JAZMINE GUERRA, OLGA R Ot 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, UNSPEC 12/23/2017 TINY ALMENDAREZ MICROBIOLOGY LABORATORY MANAGER Ot E03.9 HYPOTHYROIDISM, UNSPECIFIED 12/23/2017 TINY ALMENDAREZ MICROBIOLOGY LABORATORY MANAGER Ot E10.9 TYPE 1 DIABETES MELLITUS WITHOUT COMPLIC 12/27/2017 TINY ALMENDAREZ MICROBIOLOGY LABORATORY MANAGER Ot E03.9 HYPOTHYROIDISM, UNSPECIFIED 12/27/2017 TINY ALMENDAREZ MICROBIOLOGY LABORATORY MANAGER Ot E10.9 TYPE 1 DIABETES MELLITUS WITHOUT COMPLIC 12/27/2017 TINY ALMENDAREZ MICROBIOLOGY LABORATORY MANAGER Ot R42 DIZZINESS AND GIDDINESS 12/29/2017 ROMY [...] 12/29/2017 ROMY , GAURANG K Ot Z79.4 VEHICLE MAINTENANCE SUPERVISOR (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 INSULIN 12/29/2017 ROMY GAURANG K Ot Z79.52 VEHICLE MAINTENANCE SUPERVISOR (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 SYSTEMIC STER 12/29/2017 ROMY , GAURANG K Ot Z88.0 ALLERGY STATUS TO PENICILLIN 12/29/2017 ROMY GAURANG K Ot Z88.1 ALLERGY STATUS TO OTHER ANTIBIOTIC AGENT 12/29/2017 ROMY GAURANG K Ot Z90.49 ACQUIRED ABSENCE OF OTHER SPECIFIED PART 01/13/2018 TINY ALMENDAREZ APRN Ot E03.9 HYPOTHYROIDISM, UNSPECIFIED 01/13/2018 TINY ALMENDAREZ APRN Ot E10.9 TYPE 1 DIABETES MELLITUS WITHOUT COMPLIC 01/13/2018 TINY ALMENDAREZ MICROBIOLOGY LABORATORY MANAGER Ot R42 DIZZINESS AND GIDDINESS Procedures Code Description [place] [address] THERAPUTIC INJ SQ/IM 12/13/2012 48811 THERAPUTIC INJ SQ/IM 01/16/2013 96288 THERAPUTIC INJ SQ/IM 01/16/2013 01091 PSYCH PHARM MGMT 01/26/2013 42979 THERAPUTIC INJ SQ/IM 02/09/2013 89301 THERAPUTIC INJ SQ/IM 03/12/2013 81231 THERAPUTIC INJ SQ/IM 03/12/2013 41278 THERAPUTIC INJ SQ/IM 04/10/2013 J1631 Haldol Decanoate 100 mg/mL Solution 04/11/2013 40859 THERAPUTIC INJ SQ/IM 06/12/2013 19094 THERAPUTIC INJ SQ/IM 07/18/2013 70509 CMP 11/27/2013 78147 LIPID PANEL 11/27/2013 49038 IMIPRAMINE 11/27/2013 21197 CBC 11/27/2013 86252 THERAPUTIC INJ SQ/IM 01/10/2014 45.16 ESOPHAGOGASTRODUODENOSCOPY [ EGD] W/CLOSE 02/07/2014 03638 THERAPUTIC INJ SQ/IM 02/08/2014 47819 THERAPUTIC INJ SQ/IM 04/05/2014 70569 THERAPUTIC INJ SQ/IM 05/07/2014 03003 THERAPUTIC INJ SQ/IM 06/05/2014 44193 THERAPUTIC INJ SQ/IM 06/05/2014 76595 IMMUNOTHERAPY, ONE INJECTION 07/01/2014 57347 THERAPUTIC INJ SQ/IM 07/09/2014 42263 THERAPUTIC INJ SQ/IM 08/07/2014 90092 THERAPUTIC INJ SQ/IM 09/06/2014 15386 THERAPUTIC INJ SQ/IM 10/10/2014 15636 THERAPUTIC INJ SQ/IM 11/07/2014 36441 THERAPUTIC INJ SQ/IM 01/15/2015 Results Test Result [...] culture - 05/25/16 22:45 Bacterial urine culture [id number] [facility] COLONY COUNT <10,000 NRG FTX;REPORTABLE SENSITIVITIES REPORTED AT 0742, 06-01-16 [facility] Bacterial susceptibility panel - 05/25/16 22:45 Gentamicin [...] susceptibility test by minimum inhibitory concentration - [facility] Bacterial susceptibility panel - 05/25/16 22:45 Gentamicin [...] susceptibility test by minimum inhibitory concentration 2 [facility] Comprehensive metabolic panel - 09/23/16 14:56 Serum [...] measurement by glucometer (mass/volume) 299 mg/dL 70-110 Capillary blood glucose measurement by glucometer (mass/volume) - 01/29/18 01: 28 Capillary blood glucose measurement by glucometer (mass/volume) 232 mg/dL 70-110 Serum or plasma choriogonadotropin ( test) detection - 01/29/18 01:32 Serum or plasma choriogonadotropin ( test) detection NEGATIVE NEGATIVE Complete blood count (CBC) with automated white blood cell (WBC) differential - 01/29/18 01:32 Blood leukocytes automated count (number/volume) 13.2 10*3/uL 4.3-11.0 Blood erythrocytes automated count (number/volume) 5.22 10*6/uL 4.35-5.85 Venous blood hemoglobin measurement (mass/volume) 15.6 g/dL 11.5-16.0 Blood hematocrit (volume fraction) 43 % 35-52 Automated erythrocyte mean corpuscular volume 83 [foz_us] 80-99 Automated erythrocyte mean corpuscular hemoglobin (mass per erythrocyte) 30 pg 25-34 Automated erythrocyte mean corpuscular hemoglobin concentration measurement ( mass/volume) 36 g/dL 32-36 Automated erythrocyte distribution width ratio 13.3 % 10.0-14.5 Automated blood platelet count (count/volume) 252 10*3/uL 130-400 Automated blood platelet mean volume measurement 11.0 [foz_us] 7.4-10.4 Automated blood neutrophils/100 leukocytes 52 % 42-75 Automated blood lymphocytes/100 leukocytes 39 % 12-44 Blood monocytes/100 leukocytes 6 % 0-12 Automated blood eosinophils/100 leukocytes 2 % 0-10 Automated blood basophils/100 leukocytes 1 % 0-10 Blood neutrophils automated count (number/volume) 6.9 10*3 1.8-7.8 Blood lymphocytes automated count (number/volume) 5.1 10*3 1.0-4.0 Blood monocytes automated count (number/volume) 0.8 10*3 0.0-1.0 Automated eosinophil count 0.3 10*3/uL 0.0-0.3 Automated blood basophil count (count/volume) 0.1 10*3/uL 0.0-0.1 Comprehensive metabolic panel - 01/29/18 01:32 Serum or plasma sodium measurement (moles/volume) 137 mmol/L 135-145 Serum or plasma potassium measurement (moles/volume) 2.9 mmol/L 3.6-5.0 Serum or plasma chloride measurement (moles/volume) 107 mmol/L 98-107 Carbon dioxide 17 mmol/L 21-32 Serum or plasma anion gap determination (moles/volume) 13 mmol/L 5-14 Serum or plasma urea nitrogen measurement (mass/volume) 16 mg/dL 7-18 Serum or plasma creatinine measurement (mass/volume) 0.92 mg/dL 0.60-1.30 Serum or plasma urea nitrogen/creatinine mass ratio 17 NRG Serum or plasma creatinine measurement with calculation of estimated glomerular filtration rate > NRG Serum or plasma glucose measurement (mass/volume) 249 mg/dL 70-105 Serum or plasma calcium measurement (mass/volume) 10.5 mg/dL 8.5-10.1 Serum or plasma total bilirubin measurement (mass/volume) 0.3 mg/dL 0.1-1.0 Serum or plasma alkaline phosphatase measurement (enzymatic activity/volume) 122 U/L 40-136 Serum or plasma aspartate aminotransferase measurement (enzymatic activity/ volume) 12 U/L 5-34 Serum or plasma alanine aminotransferase measurement (enzymatic activity/volume ) 26 U/L 0-55 Serum or plasma protein measurement (mass/volume) 7.6 g/dL 6.4-8.2 Serum or plasma albumin measurement (mass/volume) 4.6 g/dL 3.2-4.5 Magnesium - 01/29/18 01:32 Magnesium 1.7 mg/dL 1.8-2.4 Serum or plasma amylase measurement (enzymatic activity/volume) - 01/29/18 01: 32 Serum or plasma amylase measurement (enzymatic activity/volume) 41 U /L 25-125 Lipase - 01/29/18 01:32 Lipase 41 U/L 8-78 Serum or plasma thyroxine (T4) free measurement (mass/volume) - 01/29/18 01:32 Serum or plasma thyroxine (T4) free measurement (mass/volume) 0.96 ng/dL 0.70-1.48 Serum or plasma thyrotropin measurement by detection limit <=0.05 miu/l (units/ volume) - 01/29/18 01:32 Serum or plasma thyrotropin measurement by detection limit <=0.05 miu/l (units/ volume) 5.17 u[iU]/mL 0.35-4.94 Serum or plasma salicylates measurement (mass/volume) - 01/29/18 01:32 Serum or plasma salicylates measurement (mass/volume) < mg/dL 5.0-20.0 Serum or plasma acetaminophen measurement (mass/volume) - 01/29/18 01:32 Serum or plasma acetaminophen measurement (mass/volume) < ug/mL 10-30 Serum or plasma ethanol measurement (mass/volume) - 01/29/18 01:32 Serum or plasma ethanol measurement (mass/volume) < mg/dL <10 Urine drug screening test - 01/29/18 01:58 Urine phencyclidine detection by screening method NEGATIVE [...] NEGATIVE Urine propoxyphene detection NEGATIVE NEGATIVE Complete urinalysis with reflex to culture - 01/29/18 01:58 Urine color determination YELLOW NRG Urine clarity determination SLIGHTLY CLOUDY NRG Urine pH measurement by test strip 5 5-9 Specific gravity of urine by test strip 1.025 1.016- 1.022 Urine protein assay by test [...] erythrocyte count by microscopy (number/high power field) [HPF] NRG Automated urine sediment leukocyte count by microscopy (number/high power field ) [HPF] NRG Bacteria detection in urine sediment by light microscopy FEW NRG Squamous epithelial cells detection in urine sediment by light microscopy 5-10 NRG Crystals detection in urine sediment by light microscopy NONE NRG Casts detection in urine sediment by light microscopy NONE NRG Mucus detection in urine sediment by light microscopy NEGATIVE NRG Complete urinalysis with reflex to culture YES NRG Yeast detection in urine sediment by light microscopy FEW NRG Serum or plasma potassium measurement (moles/volume) - 01/29/18 05:30 Serum or plasma potassium measurement (moles/volume) 2.6 mmol/L 3.6-5.0 Capillary blood glucose measurement by glucometer (mass/volume) - 01/29/18 05: 31 Capillary blood glucose measurement by glucometer (mass/volume) 69 mg/dL 70-110 Encounters ACCT No. Visit Date/Time Discharge Status Pt. Type Provider Facility Loc./Unit Complaint [id number] 02/19/2015 10:39:00 02/19/2015 23:59:59 CLS Outpatient BRYAN SHARP APRN [id number] 01/15/2015 15:46:00 01/15/2015 23:59:59 CLS Outpatient BRYAN SHARP APRN [id number] 12/31/2014 09:36:00 12/31/2014 23:59:59 CLS Outpatient BRYAN SHARP APRN [id number] 11/21/2014 14:43:00 11/21/2014 23:59:59 CLS Outpatient BRYAN SHARP APRN [id number] 11/07/2014 15:40:00 11/07/2014 23:59:59 CLS Outpatient BRYAN SHARP APRN [id number] 10/09/2014 15:00:00 10/09/2014 23:59:59 CLS Outpatient ALVARO VYAS DO [id number] 09/06/2014 15:25:00 09/06/2014 23:59:59 CLS Outpatient ALVARO VYAS DO [id number] 08/16/2014 15:48:00 08/16/2014 23:59:59 CLS Outpatient LILA BRYAN CHAUDHRY [id number] 08/07/2014 14:18:00 08/07/2014 23:59:59 CLS Outpatient BRYAN SHARP APRN [id number] 07/19/2014 09:53:00 07/19/2014 23:59:59 CLS Outpatient BRYAN SHARP APRN [id number] 07/09/2014 15:39:00 07/09/2014 23:59:59 CLS Outpatient BRYAN SHARP APRN [id number] 06/18/2014 16:04:00 06/18/2014 23:59:59 CLS Outpatient LILA MICROBIOLOGY LABORATORY MANAGER, BRYAN [id number] 06/05/2014 15:45:00 06/05/2014 23:59:59 CLS Outpatient ALVARO VYAS DO [id number] 05/16/2014 16:35:00 05/16/2014 23:59:59 CLS Outpatient LILA MICROBIOLOGY LABORATORY MANAGER, BRYAN [id number] 05/07/2014 11:39:00 05/07/2014 23:59:59 CLS Outpatient LILA MICROBIOLOGY LABORATORY MANAGER, BRYAN [id number] 04/18/2014 14:58:00 04/18/2014 23:59:59 CLS Outpatient LILA MICROBIOLOGY LABORATORY MANAGER, BRYAN [id number] 04/05/2014 10:34:00 04/05/2014 23:59:59 CLS Outpatient ALVARO VYAS DO [id number] 2014 14:23:00 2014 23:59:59 CLS Outpatient LILA MICROBIOLOGY LABORATORY MANAGER, BRYAN [id number] 2014 14:23:00 2014 23:59:59 CLS Outpatient LILA MICROBIOLOGY LABORATORY MANAGER, BRYAN [id number] 03/11/2014 12:20:00 03/11/2014 23:59:59 CLS Outpatient FINLEY MICROBIOLOGY LABORATORY MANAGER, AFUA BOSWELL [id number] 02/08/2014 08:25:00 02/08/2014 23:59:59 CLS Outpatient FINLEY MICROBIOLOGY LABORATORY MANAGER, AFUA BOSWELL [id number] 01/10/2014 10:55:00 01/10/2014 23:59:59 CLS Outpatient FINLEY MICROBIOLOGY LABORATORY MANAGER, AFUA BOSWELL [id number] 12/10/2013 17:22:00 12/10/2013 23:59:59 CLS Outpatient FINLEY MICROBIOLOGY LABORATORY MANAGER, AFUA BOSWELL [id number] 09/25/2013 13:29:00 09/25/2013 23:59:59 CLS Outpatient FINLEY MICROBIOLOGY LABORATORY MANAGER, AFUA BOSWELL [id number] 09/03/2013 16:40:00 09/03/2013 23:59:59 CLS Outpatient FINLEY MICROBIOLOGY LABORATORY MANAGER, AFUA BOSWELL [id number] 08/20/2013 13:43:00 08/20/2013 23:59:59 CLS Outpatient FINLEY MICROBIOLOGY LABORATORY MANAGERAFUA [id number] 07/18/2013 08:54:00 07/18/2013 23:59:59 CLS Outpatient FINLEY MICROBIOLOGY LABORATORY MANAGER, AFUA BOSWELL [id number] 07/12/2013 16:28:00 07/12/2013 23:59:59 CLS Outpatient AFUA FINLEY APRN [id number] 01/19/2013 15:27:00 01/19/2013 23:59:59 CLS Outpatient AFUA FINLEY APRN [id number] 01/16/2013 13:38:00 01/16/2013 23:59:59 CLS Outpatient [id number] 12/29/2012 09:32:00 12/29/2012 23:59:59 CLS Outpatient AFUA FINLEY APRN [id number] 12/13/2012 14:41:00 12/13/2012 23:59:59 CLS Outpatient [id number] 11/20/2012 10:07:00 11/20/2012 23:59:59 CLS Outpatient AFUA FINLEY APRN [id number] 09/11/2012 09:21:00 09/11/2012 23:59:59 CLS Outpatient AFUA FINLEY APRN [id number] 06/22/2013 15:42:00 Document Registration [id number] 06/15/2013 06:58:00 Document Registration [id number] 04/10/2013 10:26:00 Document Registration [id number] 03/12/2013 11:15:00 Document Registration [id number] 02/26/2013 13:42:00 Document Registration [id number] 02/09/2013 16:13:00 Document Registration [id number] 02/05/2013 07:59:00 Document Registration [id number] 07/28/2015 08:25:02 ACT Document Registration [id number] 06/21/2017 08:36:00 Document Registration [id number] 01/25/2018 12:20:00 01/25/2018 23:59:59 CLS Outpatient Vivianmayo Samia Reich [facility] [id number] 11/18/2017 09:20:00 Document Registration [id number] 06/20/2017 15:00:00 Document Registration [id number] 12/27/2017 01:47:00 12/27/2017 05:59:00 DIS Outpatient GAURANG STANTON DO [facility] ER SEVERE ABD PAIN,DIZZY [id number] 12/23/2017 10:31:00 12/23/2017 23:59:59 CLS Outpatient TANESHA, TINY R MICROBIOLOGY LABORATORY MANAGER [facility] LAB E03.9 [id number] 08/08/2017 17:48:00 08/08/2017 23:59:59 CLS Outpatient OLGA LUCERO MD [facility] RAD ELEVATED PROLACTIC LEVEL E22.9 [id number] 07/29/2017 01:06:00 07/29/2017 02:20:00 DIS Emergency IOVRY DICKSON MD [facility] ER LOWER BACK PAIN [id number] 07/09/2017 17:13:00 07/09/2017 19:49:00 DIS Emergency IVORY DICKSON MD [facility] ER HIGH BLOOD SUGAR, HEADACHE [id number] 05/02/2017 23:40:00 05/03/2017 04:00:00 DIS Emergency JOHN LEE MD [facility] ER EYE PAIN,FEELS LIKE NEEDLES IN EYES [id number] 01/25/2017 00:51:00 01/25/2017 02:52:00 DIS Emergency FRANCISCO ALAN DO [facility] ER HIGH BLOOD SUGAR 503 [id number] 09/23/2016 14:39:00 09/23/2016 23:59:59 CLS Outpatient ADAIR LUCERO [facility] LAB DIABETES,INSULIN DEPENDENT [id number] 06/04/2016 15:00:00 06/04/2016 23:59:59 CLS Outpatient OLGA LUCERO MD [facility] RAD LUMBAR PAIN,R HIP PAIN [id number] 05/25/2016 22:15:00 05/25/2016 23:33:00 DIS Emergency GAURANG STANTON DO [facility] ER LOWER BACK PAIN [id number] 01/29/2016 11:47:00 01/29/2016 23:59:59 CLS Outpatient OLGA LUCERO MD [facility] LAB [id number] 11/17/2015 10:20:00 11/17/2015 23:59:59 CLS Outpatient OLGA LUCERO MD [facility] LAB HYPOTHYROID [id number] 11/12/2015 08:59:00 11/12/2015 12:00:00 DIS Outpatient TREVIN DALE MD [facility] SDC CHANGE IN BOWEL HABIT [id number] 11/10/2015 05:36:00 11/10/2015 23:59:59 CLS Outpatient TREVIN DALE MD [facility] PREOP SCREENING [id number] 11/06/2015 00:09:00 11/06/2015 23:59:59 CLS Preadmit OLGA LUCERO MD [facility] LAB DIARRHEA [id number] 08/11/2015 06:00:00 11/05/2015 00:01:00 DIS Outpatient OLGA LUCERO MD [facility] LAB DIARRHEA [id number] 10/11/2015 09:54:00 10/11/2015 11:56:00 DIS Emergency DARRICK VERDUZCO MD [facility] ER MIGRAINE [id number] 07/28/2015 08:22:00 07/28/2015 23:59:59 CLS Outpatient ADAIR LUCERO [facility] LAB DM11 [id number] 07/08/2015 11:07:00 07/08/2015 23:59:59 CLS Outpatient OLGA LUCERO MD [facility] RAD PERSISTANT COUGH [id number] 06/12/2015 20:47:00 06/12/2015 23:13:00 DIS Emergency ROMY DOGAURANG K [facility] ER BARAJAS [id number] 12/04/2014 18:15:00 12/06/2014 11:50:00 DIS Inpatient OLGA LUCERO MD [facility] 4TH SUICIDAL IDEATION; DEPRESSION;SCHIZOPHRENIA;UTI; [id number] 08/23/2014 08:56:00 08/23/2014 23:59:59 CLS Outpatient ADAIR LUCERO [facility] LAB DIABETES-INSULIN DEPENDANT [id number] 07/14/2014 02:29:00 07/14/2014 04:00:00 DIS Emergency DARRICK VERDUZCO MD [facility] ER MIGRAINE [id number] 06/19/2014 21:16:00 06/19/2014 22:49:00 DIS Emergency TANYA GONZALEZ APRN [facility] ER HEADACHE [id number] 05/23/2014 12:03:00 05/23/2014 23:59:59 CLS Outpatient ADAIR LUCERO [facility] LAB DIABETES [id number] 05/02/2014 06:12:00 05/02/2014 15:55:00 DIS Outpatient ESAU BERRY DO [facility] SDC CHRONIC CHOLECYSTITIS [id number] 04/30/2014 08:30:00 04/30/2014 23:59:59 CLS Outpatient ESAU BERRY DO [facility] PREOP CHRONIC CHOLECYSTITIS [id number] 04/09/2014 09:46:00 04/09/2014 23:59:59 CLS Outpatient OLGA LUCERO MD [facility] CARD RUQ PAIN [id number] 04/03/2014 11:17:00 04/03/2014 23:59:59 CLS Outpatient OLGA LUCERO MD [facility] RAD RUQ PAIN [id number] 02/28/2014 11:50:00 02/28/2014 23:59:59 CLS Outpatient ADAIR LUCERO [facility] LAB DIABETES [id number] 02/06/2014 15:47:00 02/07/2014 18:50:00 DIS Inpatient OLGA LUCERO MD [facility] 4TH HEMADEMESIS, TM [id number] 02/04/2014 23:07:00 02/05/2014 00:24:00 DIS Emergency MILLICENT BHATTI MD [facility] ER MIGRAINE [id number] 01/11/2014 10:23:00 01/11/2014 23:59:59 CLS Outpatient ADAIR LUCERO [facility] LAB DIABETES [id number] 11/27/2013 10:06:00 11/27/2013 23:59:59 CLS Outpatient AFUA FINLEY [facility] LAB MEDICATION-HIGH RISK [id number] 11/17/2013 11:06:00 11/17/2013 15:25:00 DIS Emergency GAURANG STANTON DO [facility] ER DEPRESSION SUICIDAL THOUGHTS [id number] 09/06/2013 21:08:00 09/07/2013 00:18:00 DIS Emergency DARRICK VERDUZCO MD [facility] ER ELEVATED BLOOD SUGAR [id number] 09/06/2013 13:55:00 09/06/2013 23:59:59 CLS Outpatient OLGA LUCERO MD [facility] RAD PAIN W/WALKING [id number] 08/07/2013 13:32:00 08/07/2013 23:59:59 CLS Outpatient OLGA LUCERO MD [facility] RAD L Q PAIN [id number] 08/06/2013 15:36:00 08/06/2013 23:59:59 CLS Outpatient OLGA LUCERO MD [facility] LAB L Q PAIN [id number] 05/18/2013 16:42:00 05/18/2013 22:49:00 DIS Emergency SERGIO GERARD [facility] ER SUICIDIAL IDEATION [id number] 01/29/2018 06:20:00 ACT Inpatient INDY MCCLAIN MD [facility] ICU SUICIDAL IDEATION,HYPOKALEMIA, HYPOMAGNESEMIA [id number] 01/29/2016 11:45:00 Document Registration [id number] 02/10/2013 06:25:00 Document Registration [id number] 02/08/2013 11:58:00 Document Registration [id number] 11/08/2012 13:41:00 Document Registration [id number] 08/02/2012 14:50:00 Document Registration [id number] 02/08/2012 22:00:00 Document Registration [id number] 12/27/2011 13:01:00 Document Registration [id number] 12/15/2011 12:51:00 Document Registration [id number] 09/07/2011 22:42:00 Document Registration [id number] 03/19/2011 20:21:00 Document Registration [id number] 02/11/2011 15:16:00 Document Registration [id number] 12/11/2010 13:19:00 Document Registration [id number] 12/10/2010 13:05:00 Document Registration [id number] 11/07/2010 21:58:00 Document Registration [id number] 11/01/2010 22:32:00 Document Registration
[2018-01-29] MEDS ORDERED: CATHETER FLUSH 10 ML SYR IV PRN ×2 (11:00)
[2018-01-29 11:27] LABS: BUN/CREATININE RATIO 24; CARBON DIOXIDE 21 MMOL/L (21-32); CHLORIDE 110 MMOL/L (98-107); CREATININE SERUM 0.74 MG/DL (0.60-1.30); GFR ESTIMATED > 60; GLUCOSE 212 MG/DL (70-105); MAGNESIUM 1.8 MG/DL (1.8-2.4); POTASSIUM 3.5 MMOL/L (3.6-5.0); SODIUM 137 MMOL/L (135-145)
[2018-01-29] MEDS: POTASSIUM CHLORIDE INJ 40 MEQ in 1/2 NS IV SOLUTION 1,000 ML IV SCH ×2 (14:19→20:57)
[2018-01-29] MEDS: inSUlin (REGULAR) HUMAN 1 UNIT/0.01 ML (CHARGE PER UNIT) SC SCH ×3 (14:20→20:58)
--- NOTE | 2018-01-29 14:45 | History & Physical-Hospitalist ---
History of Present Illness HPI/Chief Complaint Pt is a 37yoCF with a PMH of mood disorder, IDDMII who presented to the ER due to voices telling her to kill herself. She states this started 2-3 weeks ago but this is not the first time she has heard voices. She follows with [facility] and [facility] and Mariah Sin as a counselor. She knows she is on mood stabilizers but is unable to name them. She denies missing any dose. Yesterday the voices increased in frequency and started to tell her to do worse thing ( kill herself, cut herself, go system integration engineer traffic and get hit, etc). She called the SAVE line last night due to this and was told to go to the ER she evaluation. She was found to have hypokalemia and due to that inpatient psych was uncomfortable with direct admission. Source: patient Exam Limitations: no limitations Date Seen 01/29/18 Time Seen by Provider: 14:45 Attending Physician Indy Mcclain MD PCP Patrick Ryan MD Referring Physician Date of Admission Jan 29, 2018 at 6:20 am Home Medications & Allergies Home Medications Reviewed patient Home Medication Reconciliation performed by pharmacy medication reconciliations hazardous material technician and/or nursing. Patients Allergies have been reviewed. Allergies Allergies Coded Allergies amoxicillin (Unverified Allergy, Severe, sob, rash, 11/01/10) Penicillins (Verified Adverse Reaction, Severe, RASH, 12/14/05) cefuroxime (Verified Adverse Reaction, Severe, RASH, 12/14/05) clarithromycin (Unverified Adverse Reaction, Mild, nausea and dizziness, ) Past Eeuqsmx-Ckvykj-Nfbfhj Hx Past Med/Social Hx: Reviewed Nursing Past Med/Soc Hx Patient Social History Marrital Status: single Alcohol Use: Rarely Uses Number of Drinks Today: 0 Alcohol Beverage of Choice: Beer Recreational Drug Use: No Smoking Status: Current Everyday Smoker Cigaretts per day: 9 Type Used: Cigarettes 2nd Hand Smoke Exposure: Yes Physical Abuse Screen: No Sexual Abuse: No Recent Foreign Travel: No Contact w/other who traveled: No Recent Hopitalizations: No Recent Infectious Disease Expo: No Immunizations Up To Date Tetanus Booster (TDap): Less than 5yrs Date of Pneumonia Vaccine: Oct 24, 2010 Date of Influenza Vaccine: Aug 30, 2015 Seasonal Allergies Seasonal Allergies: Yes Past Medical History Surgeries: Appendectomy, Eye Surgery, Gallbladder, Orthopedic Neurological: Headaches /Migraines Reproductive: No Sexually Transmitted Disease: No HIV/AIDS: No Female Reproductive Disorders: Denies Genitourinary: UTI-Chronic Gastrointestinal: Gastroesophageal Reflux Endocrine: Diabetes, Insulin dep, Hypothyroidsim Loss of Vision: Bilateral Hearing Impairment: Denies Psychosocial: ADD/ADHD, Anxiety, Suicide Attempts, Personality Disorder, Schizophrenia, Depression History of Blood Disorders: No Family History Family history: Allergy 03 MOTHER 09 BROTHER Family history: Arthritis 03 MOTHER Family history: Asthma 09 BROTHER 09 SISTER Family history: Cardiovascular disease 03 FATHER ("TAKES MEDICATION FOR HIS HEART") Family history: Diabetes mellitus 03 FATHER Family history: Hypertension 03 MOTHER Hypercholesterolemia 03 MOTHER Psychosocial problem 09 SISTER (DEPRESSION) Psychotic disorder 09 SISTER (ANXIETY) No Family History of: Abdominal aortic aneurysm [place]'s disease Alcoholism Aphasia Cancer Cancer of colon Cataract Chest pain Congenital heart disease Congestive heart failure Cystic fibrosis Dementia Dysphagia Family history: Alzheimer's disease Family history: Breast disease Family history: Coronary thrombosis Family history: Gastrointestinal disease Family history: Glaucoma Family history: Osteoporosis Family history: Thyroid disorder Headache Hearing loss Heart disease Hereditary disease History of - anemia History of - disorder History of - respiratory disease History of drug abuse Human immunodeficiency virus (HIV) seropositivity Infertile Kidney disease Malignant neoplasm of lung Myocardial infarction Parkinson's disease Prostate cancer Seizure disorder Stroke Tuberculosis Visual impairment Review of Systems Constitutional: No chills, No fever EENTM: No blurred vision, No double vision, No nose congestion, No throat pain Respiratory: No cough, No dyspnea on exertion, No short of breath Cardiovascular: No chest pain, No edema, No palpitations Gastrointestinal: No abdominal pain, No constipation, No diarrhea, No nausea, No vomiting Genitourinary: No dysuria, No frequency Musculoskeletal: No joint pain, No muscle pain Skin: No lesions, No rash Psychiatric/Neurological: See HPI, Emotional Problems; Denies Headache, Denies Numbness, Denies Tingling Physical Exam Physical Exam Vital Signs Vital Signs - First Documented 01/29/18 01/29/18 01:37 21:57 Temp 96.3 Pulse 117 Resp 20 B/P (MAP) 133/94 (107) Pulse Ox 97 O2 Delivery Room Air FiO2 21 Capillary Refill : Less Than 3 Seconds General Appearance: No Apparent Distress, WD/WN HEENT: PERRL/EOMI, Moist Mucous Membranes Neck: Non Tender, Supple Respiratory: Lungs Clear, No Respiratory Distress Cardiovascular: Regular Rate, Rhythm, No Murmur Gastrointestinal: Normal Bowel Sounds, Non Tender, Soft Extremity: Normal Capillary Refill, No Calf Tenderness Neurologic/Psychiatric: Alert, Oriented x3, Depressed Affect Skin: Normal Color, Warm/Dry Results Results/Procedures Labs Patient resulted labs reviewed. Assessment/Plan Admission Diagnosis Suicidal Ideation Hypokalemia Admission Status: Observation Diagnosis/Problems Diagnosis/Problems (1) SUICIDAL IDEATION Status: Acute Assessment & Plan: Had bed at [facility] but unable to transfer due to hypokalemia Replaced and improved to 3.5 Will attempt to transfer tomorrow when social work available, appreciate assistance (2) Auditory hallucinations Status: Acute Assessment & Plan: Attempt to transfer to inpatient psych tomorrow (3) IDDM (insulin dependent diabetes mellitus) Status: Acute Assessment & Plan: A1c 15.1 on 12/23/17 Continue home insulin SSI (4) Hypokalemia Status: Acute Assessment & Plan: Improving, will recheck in AM Clinical Quality Measures DVT/VTE Risk/Contraindication: Risk Factor Score Per Nursin RFS Level Per Nursing on Admit: 2=Moderate INDY MCCLAIN MD Jan 29, 2018 14:45
[2018-01-29] MEDS ORDERED: QUET200T57 PO (17:22)
[2018-01-29] MEDS ORDERED: AZIT250T12 PO (17:22)
[2018-01-29] MEDS ORDERED: GUAN1TAB28 PO (17:27)
[2018-01-29] MEDS ORDERED: ALBU18HF2 IH (17:27)
[2018-01-29] MEDS ORDERED: OXCA300T PO (17:27)
[2018-01-29] MEDS ORDERED: LORA1TAB PO (17:27)
[2018-01-29] MEDS ORDERED: METF1000 PO (17:27)
[2018-01-29] MEDS ORDERED: PRD10T PO (17:27)
[2018-01-29] MEDS ORDERED: TOPI100T11 PO (17:33)
[2018-01-29] MEDS ORDERED: ARIP2TAB11 PO (17:33)
[2018-01-29] MEDS ORDERED: TRIH2TAB2 PO (18:36)
[2018-01-29] MEDS ORDERED: INSU100I14 SQ (18:36)
[2018-01-29] MEDS ORDERED: INSU100I29 SQ (18:36)
[2018-01-29] MEDS ORDERED: LORazepam 1 MG (ATIVAN) TAB PO PRN (19:00)
[2018-01-29] MEDS ORDERED: toPIRamate 25 MG (TOPAMAX) TAB PO ONE (20:47)
[2018-01-29] MEDS ORDERED: QUEtiapine 100 MG (SEROquel) TAB IMMEDIATE RELEASE ONE (20:47)
[2018-01-29] MEDS: NITROFURANTOIN 100 MG (MACROBID) CAPSULE PO SCH (20:54)
[2018-01-29] MEDS ORDERED: toPIRamate 100 MG (TOPAMAX) TAB PO SCH (21:00)
[2018-01-29] MEDS ORDERED: QUEtiapine 200 MG (SEROquel) TAB IMMEDIATE RELEASE PO SCH (21:00)
[2018-01-29] MEDS ORDERED: inSUlin DETERMIR 1 UNIT/0.01 ML (LEVEMIR) CHARGE PER UNIT SQ SCH (21:00)
[2018-01-29] MEDS: toPIRamate 25 MG (TOPAMAX) TAB PO SCH (21:17)
[2018-01-29] MEDS: OXcarbazepine (TRILEPTAL) 300 MG TAB PO SCH (21:51)
[2018-01-29] MEDS ORDERED: RT-ALBUTEROL SULF 2.5 MG/3 ML PRE-MIX VIAL INH PRN (22:30)
[2018-01-30] VITALS (15 sets, daily range): BP systolic 105–161; BP diastolic 76–109
[2018-01-30] MEDS: POTASSIUM CHLORIDE INJ 40 MEQ in 1/2 NS IV SOLUTION 1,000 ML IV SCH ×3 (04:09→12:24)
[2018-01-30 04:47] LABS: BASOPHILS # (AUTO) 0.1 10^3/uL (0.0-0.1); BASOPHILS % (AUTO) 1 % (0-10); EOSINOPHILS # (AUTO) 0.4 10^3/uL (0.0-0.3); EOSINOPHILS % (AUTO) 4 % (0-10); HEMATOCRIT 41 % (35-52); HEMOGLOBIN 14.4 G/DL (11.5-16.0); LYMPHOCYTES # (AUTO) 4.3 X 10^3 (1.0-4.0); LYMPHOCYTES % (AUTO) 43 % (12-44); MEAN CORPUSCULAR HEMOGLOBIN 30 PG (25-34); MEAN CORPUSCULAR HGB CONC 35 G/DL (32-36); MEAN CORPUSCULAR VOLUME 85 FL (80-99); MEAN PLATELET VOLUME 10.9 FL (7.4-10.4); MONOCYTES # (AUTO) 0.8 X 10^3 (0.0-1.0); MONOCYTES % (AUTO) 8 % (0-12); NEUTROPHILS # (AUTO) 4.4 X 10^3 (1.8-7.8); NEUTROPHILS % (AUTO) 44 % (42-75); PLATELET COUNT 225 10^3/uL (130-400); RED BLOOD COUNT 4.84 10^6/uL (4.35-5.85); RED CELL DISTRIBUTION WIDTH 13.8 % (10.0-14.5)
[2018-01-30 05:03] LABS: ALANINE AMINOTRANSFERASE 26 U/L (0-55); ALBUMIN 3.8 GM/DL (3.2-4.5); ALKALINE PHOSPHATASE 100 U/L (40-136); BILIRUBIN,TOTAL 0.4 MG/DL (0.1-1.0); BUN/CREATININE RATIO 22; CARBON DIOXIDE 19 MMOL/L (21-32); CHLORIDE 111 MMOL/L (98-107); CREATININE SERUM 0.74 MG/DL (0.60-1.30); GFR ESTIMATED > 60; GLUCOSE 113 MG/DL (70-105); MAGNESIUM 1.7 MG/DL (1.8-2.4); SODIUM 139 MMOL/L (135-145)
[2018-01-30] MEDS: inSUlin (REGULAR) HUMAN 1 UNIT/0.01 ML (CHARGE PER UNIT) SC SCH ×2 (06:00→12:27)
[2018-01-30] MEDS ORDERED: inSUlin ASPART (NovoLOG) 1 UNIT/0.01 ML (CHARGE PER UNIT) SC SCH (06:00)
[2018-01-30] MEDS ORDERED: KCL 20 MEQ TAB (K-DUR) PO SCH (06:00)
[2018-01-30] MEDS ORDERED: POTASSIUM CL 10MEQ/50ML IVPB 50 ML IV SCH (06:00)
[2018-01-30] MEDS ORDERED: MAGNESIUM 1 GM/100 ML IVPB 100 ML IV SCH (06:00)
[2018-01-30] MEDS: MAGNESIUM 1 GM/100 ML IVPB 100 ML IV SCH ×2 (06:05→07:13)
[2018-01-30] MEDS ORDERED: LEVOTHYROXINE 88 MCG (LEVOTHORID) TAB PO SCH ×2 (06:30)
[2018-01-30] MEDS: inSUlin ASPART (NovoLOG) 1 UNIT/0.01 ML (CHARGE PER UNIT) SC SCH ×2 (06:47→12:50)
[2018-01-30] MEDS ORDERED: RT-ALBUTEROL SULF 2.5 MG/3 ML PRE-MIX VIAL INH SCH (08:00)
[2018-01-30] MEDS: NITROFURANTOIN 100 MG (MACROBID) CAPSULE PO SCH (08:42)
[2018-01-30] MEDS: toPIRamate 25 MG (TOPAMAX) TAB PO SCH (08:42)
[2018-01-30] MEDS: OXcarbazepine (TRILEPTAL) 300 MG TAB PO SCH (08:42)
[2018-01-30] MEDS ORDERED: ARIPIPRAZOLE 2 MG (ABILIFY) TAB PO SCH (09:00)
--- NOTE | 2018-01-30 13:43 | Progress Note-Hospitalist ---
Progress Note HPI/CC on Admission Pt is a 37yoCF with a PMH of mood disorder, IDDMII who presented to the ER due to voices telling her to kill herself. She states this started 2-3 weeks ago but this is not the first time she has heard voices. She follows with [facility] and [facility] and Mariah Sin as a counselor. She knows she is on mood stabilizers but is unable to name them. She denies missing any dose. Yesterday the voices increased in frequency and started to tell her to do worse thing ( kill herself, cut herself, go senior instructor traffic and get hit, etc). She called the [facility]AVE line last night due to this and was told to go to the ER she evaluation. She was found to have hypokalemia and due to that inpatient psych was uncomfortable with direct admission. Progress Notes/Assess & Plan Date Seen 01/30/18 Time Seen by Provider: 13:40 Admission Dx/Process The patient is a 37-year-old white female whose family is known to me. She has struggled with mental health issues for years. She is schizophrenic and was admitted after she presented with disorientation and hearing voices. Arrangements have been made for inpatient psych services at [facility] in [facility]. Secure transportation will pick her up at approximately 1630 hours. Physical exam: She is alert and calm. Lungs are clear to auscultation. CV is regular without murmur. Impression: Schizophrenic exacerbation. Plan: Transfer to [place] as above. TWILA LAWLER MD Jan 30, 2018 13:43
--- NOTE | 2018-01-30 13:47 | Discharge Instructions ---
Discharge Instructions Patient Instructions Patient Instructions: Proceed to [facility]. Transportation has been provided. TWILA LAWLER MD Jan 30, 2018 13:47
== END 2018-01-30 16:20 ==
LOC: EDUNIT# 00:41 → ER 00:44 → UNDOADMOB 06:20 → ICU 06:20 → UNDODISOB 01-30 16:20
PROVIDERS: ADMIT Family Medicine; ATTEND Family Medicine
DX: E87.6 Hypokalemia (principal); E83.42 Hypomagnesemia; N39.0 Urinary tract infection, site not specified; R45.851 Suicidal ideations; F20.9 Schizophrenia, unspecified; E11.9 Type 2 diabetes mellitus without complications; E03.9 Hypothyroidism, unspecified; K21.9 Gastro-esophageal reflux disease without esophagitis; F17.210 Nicotine dependence, cigarettes, uncomplicated; F41.9 Anxiety disorder, unspecified; F32.9 Major depressive disorder, single episode, unspecified; F90.9 Attention-deficit hyperactivity disorder, unspecified type; E66.9 Obesity, unspecified; Z68.32 Body mass index [BMI] 32.0-32.9, adult; Z79.4 Long term (current) use of insulin; Z79.899 Other long term (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
CPT/HCPCS: 36415; 71046; 80048; 80053; 80306; 80320; 80329; 81000; 82150; 82962; 83690; 83735; 84132; 84439; 84443; 84703; 85025; 87088; 93005; 94640; 94664; 94760; 96361; 96365; 96367; G0378

== ENCOUNTER 2018-03-12 08:19 | Emergency (ER) | payer MEDICARE, MEDICAID ==
[~2018-03-12] VITALS: Ht 165.1 cm; Wt 86.6 kg
[~2018-03-12 08:19] MED LIST changes: +ALBU18HF2 IH; +ARIP2TAB11 PO; +AZIT250T12 PO; -CITA20TA7 PO; +CITA20TA9 PO; +GUAN1TAB28 PO; +INSU100I29 SQ; +METF10002 PO; +OXCA300T PO; +PRD10T PO; +QUET200T57 PO; +TOPI100T11 PO; +TRIH2TAB2 PO
[2018-03-12 09:05] LABS: BILIRUBIN,URINE NEGATIVE (NEGATIVE); CLARITY,URINE CLEAR; COLOR,URINE YELLOW; GLUCOSE, URINE (UA) NEGATIVE (NEGATIVE); KETONES,URINE NEGATIVE (NEGATIVE); LEUKOCYTE ESTERASE ,URINE 2+ (NEGATIVE); NITRITE,URINE NEGATIVE (NEGATIVE); PH,URINE 5 (5-9); PROTEIN,URINE NEGATIVE (NEGATIVE); UROBILINOGEN,URINE NORMAL (NORMAL)
[2018-03-12 09:12] LABS: BACTERIA,URINE MODERATE /HPF
[2018-03-12 09:16] LABS: BASOPHILS % (AUTO) 1 % (0-10); EOSINOPHILS # (AUTO) 0.4 10^3/uL (0.0-0.3); EOSINOPHILS % (AUTO) 5 % (0-10); HEMATOCRIT 39 % (35-52); HEMOGLOBIN 13.8 G/DL (11.5-16.0); LYMPHOCYTES # (AUTO) 3.3 X 10^3 (1.0-4.0); LYMPHOCYTES % (AUTO) 39 % (12-44); MEAN CORPUSCULAR HEMOGLOBIN 30 PG (25-34); MEAN CORPUSCULAR HGB CONC 36 G/DL (32-36); MEAN CORPUSCULAR VOLUME 84 FL (80-99); MEAN PLATELET VOLUME 10.1 FL (7.4-10.4); MONOCYTES # (AUTO) 0.7 X 10^3 (0.0-1.0); MONOCYTES % (AUTO) 8 % (0-12); NEUTROPHILS # (AUTO) 4.1 X 10^3 (1.8-7.8); NEUTROPHILS % (AUTO) 48 % (42-75); PLATELET COUNT 243 10^3/uL (130-400); RED BLOOD COUNT 4.59 10^6/uL (4.35-5.85); RED CELL DISTRIBUTION WIDTH 13.9 % (10.0-14.5); WHITE BLOOD COUNT 8.6 10^3/uL (4.3-11.0)
[2018-03-12] MEDS ORDERED: SULF1TAB35 PO (09:33)
--- NOTE | 2018-03-12 09:34 | ED GU-Female ---
General Chief Complaint: -Female Stated Complaint: COUGH,UNABLE TO PEE Nursing Triage Note: AMBULATED TO ROOM 07 WITH COMPLAINTS OF ONLY PEEING WHEN SHE COUGHS FOR ONE WEEK. Nursing Sepsis Screen: No Definite Risk Source: patient Exam Limitations: no limitations History of Present Illness Date Seen by Provider: March 12, 2018 Time Seen by Provider: 09:30 Initial Comments The patient is a 37-year-old white female known to me. She presents today with complaints of incontinence when she coughs. She reports that she has had a cough for about 2 weeks without fever chills or diaphoresis. Over the last week she has had the incontinence problem. She smokes about one half pack of cigarettes per day and is trying to quit. Timing/Duration: week Severity/Quality: moderate Allergies and Home Medications Allergies Coded Allergies: amoxicillin (Unverified Allergy, Severe, sob, rash, 11/01/10) Penicillins (Verified Adverse Reaction, Severe, RASH, 12/14/05) cefuroxime (Verified Adverse Reaction, Severe, RASH, 12/14/05) clarithromycin (Unverified Adverse Reaction, Mild, nausea and dizziness, ) Home Medications Albuterol Sulfate 18 Gm Hfa.aer.ad, 2 PUFF IH Q6H PRN for SHORTNESS OF BREATH, ( Reported) Aripiprazole 2 Mg Tablet, 2 MG PO DAILY, (Reported) Citalopram Hydrobromide 20 Mg Tablet, 20 MG PO DAILY, (Reported) TAKES WITH CITALOPRAM 40 MG DAILY Citalopram Hydrobromide 40 Mg Tablet, 40 MG PO DAILY, (Reported) TAKES WITH CITALOPRAM 20 MG DAILY Guanfacine HCl 1 Mg Tab.er.24h, 1 MG PO HS, (Reported) Insulin Aspart 300 Units/3 Ml Solution, 25 UNITS SQ AC, (Reported) Insulin Detemir 100 Unit/1 Ml Insuln.pen, 67 UNITS SQ HS, (Reported) Levothyroxine Sodium 50 Mcg Tablet, 50 MCG PO DAILY, (Reported) Lorazepam 1 Mg Tablet, 1 MG PO DAILY PRN for ANXIETY, (Reported) Metformin HCl 1,000 Mg Tablet, 1,000 MG PO BID, (Reported) Oxcarbazepine 300 Mg Tablet, 300 MG PO BID, (Reported) Paliperidone 6 Mg Tab.er.24, 12 MG PO HS, (Reported) TAKES 2 (6 MG) TABLETS Quetiapine Fumarate 200 Mg Tablet, 200 MG PO HS, (Reported) Topiramate 100 Mg Tablet, 150 MG PO BID, (Reported) TAKES 1 & 1/2 OF A (100 MG) TABLET Trihexyphenidyl HCl 2 Mg Tablet, 1 MG PO DAILY, (Reported) TAKES 1/2 OF A (2 MG) TABLET Patient Home Medication List Home Medication List Reviewed: Yes Review of Systems Constitutional: see HPI EENTM: no symptoms reported Respiratory: cough Cardiovascular: no symptoms reported Gastrointestinal: no symptoms reported Genitourinary: incontinence Musculoskeletal: no symptoms reported Skin: no symptoms reported Past Hxreros-Npxhnk-Tefvlq Hx Patient Social History Alcohol Use: Denies Use Alcohol Beverage of Choice: Beer Recreational Drug Use: No Smoking Status: Current Everyday Smoker Type Used: Cigarettes 2nd Hand Smoke Exposure: Yes Recent Foreign Travel: No Contact w/Someone Who Travel: No Recent Infectious Disease Expo: No Recent Hopitalizations: No Immunizations Up To Date Tetanus Booster (TDap): Less than 5yrs Date of Pneumonia Vaccine: Oct 24, 2010 Date of Influenza Vaccine: Aug 30, 2015 Seasonal Allergies Seasonal Allergies: Yes Past Medical History Surgeries: Yes (EGD, RIGHT HIP SURGERY CHILD FOR UNKNOWN REASON) Appendectomy, Eye Surgery, Gallbladder, Orthopedic Respiratory: No Cardiac: No Neurological: Yes Headaches /Migraines Reproductive Disorders: No Female Reproductive Disorders: Denies Sexually Transmitted Disease: No HIV/AIDS: No Genitourinary: Yes UTI-Chronic Gastrointestinal: Yes Gastroesophageal Reflux Musculoskeletal: No Endocrine: Yes (INSULIN + ORAL MEDICATIONS; OBESITY) Diabetes, Insulin dep, Hypothyroidsim HEENT: No Loss of Vision: Bilateral Hearing Impairment: Denies Cancer: No Psychosocial: Yes (EXTENSIVE PSYCH ISSUES) ADD/ADHD, Anxiety, Suicide Attempts, Personality Disorder, Schizophrenia, Depression Integumentary: No Blood Disorders: No Family Medical History Family history: Allergy 03 MOTHER 09 BROTHER Family history: Arthritis 03 MOTHER Family history: Asthma 09 BROTHER 09 SISTER Family history: Cardiovascular disease 03 FATHER ("TAKES MEDICATION FOR HIS HEART") Family history: Diabetes mellitus 03 FATHER Family history: Hypertension 03 MOTHER Hypercholesterolemia 03 MOTHER Psychosocial problem 09 SISTER (DEPRESSION) Psychotic disorder 09 SISTER (ANXIETY) No Family History of: Abdominal aortic aneurysm Zenon's disease Alcoholism Aphasia Cancer Cancer of colon Cataract Chest pain Congenital heart disease Congestive heart failure Cystic fibrosis Dementia Dysphagia Family history: Alzheimer's disease Family history: Breast disease Family history: Coronary thrombosis Family history: Gastrointestinal disease Family history: Glaucoma Family history: Osteoporosis Family history: Thyroid disorder Headache Hearing loss Heart disease Hereditary disease History of - anemia History of - disorder History of - respiratory disease History of drug abuse Human immunodeficiency virus (HIV) seropositivity Infertile Kidney disease Malignant neoplasm of lung Myocardial infarction Parkinson's disease Prostate cancer Seizure disorder Stroke Tuberculosis Visual impairment Physical Exam Vital Signs Vital Signs - First Documented 03/12/18 08:45 Temp 98.0 Pulse 87 Resp 18 B/P (MAP) 136/100 (112) Pulse Ox 98 O2 Delivery Room Air Capillary Refill : Less Than 3 Seconds General Appearance: WD/WN, no apparent distress HEENT: normal ENT inspection Neck: full range of motion Cardiovascular: normal peripheral pulses, regular rate, rhythm, no edema, no gallop, no JVD, no murmur Respiratory: chest non-tender, lungs clear, normal breath sounds, no respiratory distress, no accessory muscle use, respiratory distress Gastrointestinal: normal bowel sounds, non tender, soft, no organomegaly, no pulsatile mass, abnormal bowel sounds Extremities: normal range of motion, non-tender, normal inspection, no pedal edema, no calf tenderness, normal capillary refill, pelvis stable 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, no motor/sensory deficits, alert, normal mood/affect, oriented x 3 Skin: normal color, warm/dry, cyanosis, cool, diaphoresis, pallor Lymphatic: no adenopathy Progress/Results/Core Measures Suspected Sepsis Recent Fever Within 48 Hours: No Infection Criteria Present: None New/Unexplained Altered Menta: No Sepsis Screen: No Definite Risk SIRS Temperature:98.0 Pulse: 87 Respiratory Rate: 18 Laboratory Tests 03/12/18 09:10: White Blood Count 8.6 Blood Pressure 136 /100 Mean: 112 Laboratory Tests 03/12/18 09:10: Platelet Count 243 Results/Orders Lab Results Laboratory Tests Test 03/12/18 08:59 03/12/18 09:10 Range/Units Urine Color YELLOW Urine Clarity CLEAR Urine pH 5 5-9 Urine Specific [place] 1.025 H 1.016-1.022 Urine Protein NEGATIVE NEGATIVE Urine Glucose (UA) NEGATIVE NEGATIVE Urine Ketones NEGATIVE NEGATIVE Urine Nitrite NEGATIVE NEGATIVE Urine Bilirubin NEGATIVE NEGATIVE Urine Urobilinogen NORMAL NORMAL MG/DL Urine Leukocyte Esterase 2+ H NEGATIVE Urine RBC (Auto) NEGATIVE NEGATIVE Urine RBC NONE /HPF Urine WBC 5-10 H /HPF Urine Squamous Epithelial Cells 5-10 /HPF Urine Crystals NONE /LPF Urine Bacteria MODERATE H /HPF Urine Casts NONE /LPF Urine Mucus MODERATE H /LPF Urine Culture Indicated YES White Blood Count 8.6 4.3-11.0 10^3/uL Red Blood Count 4.59 4.35-5.85 10^6/uL Hemoglobin 13.8 11.5-16.0 G/DL Hematocrit 39 35-52 % Mean Corpuscular Volume 84 80-99 FL Mean Corpuscular Hemoglobin 30 25-34 PG Mean Corpuscular Hemoglobin Concent 36 32-36 G/DL Red Cell Distribution Width 13.9 10.0-14.5 % Platelet Count 243 130-400 10^3/uL Mean Platelet Volume 10.1 7.4-10.4 FL Neutrophils (%) (Auto) 48 42-75 % Lymphocytes (%) (Auto) 39 12-44 % Monocytes (%) (Auto) 8 0-12 % Eosinophils (%) (Auto) 5 0-10 % Basophils (%) (Auto) 1 0-10 % Neutrophils # (Auto) 4.1 1.8-7.8 X 10^3 Lymphocytes # (Auto) 3.3 1.0-4.0 X 10^3 Monocytes # (Auto) 0.7 0.0-1.0 X 10^3 Eosinophils # (Auto) 0.4 H 0.0-0.3 10^3/uL Basophils # (Auto) 0.0 0.0-0.1 10^3/uL My Orders Orders - TIWLA LAWLER MD Cbc With Automated Diff (03/12/18 08:58) Ua Culture If Indicated (03/12/18 08:58) Urine Culture (03/12/18 08:59) Vital Signs/I&O 03/12/18 08:45 Temp 98.0 Pulse 87 Resp 18 B/P (MAP) 136/100 (112) Pulse Ox 98 O2 Delivery Room Air Capillary Refill : Less Than 3 Seconds Blood Pressure Mean: 112 Point of Care Testing Urine -Bedside: Negative Departure Impression Primary Impression: Urinary tract infection Disposition: 01 HOME, SELF-CARE Condition: Stable/Unchanged Departure-Patient Inst. Decision time for Depature: 09:32 Referrals: OLGA LUCERO MD (PCP/Family) Primary Care Physician Patient Instructions: Urinary Tract Infection, Adult (DC) Add. Discharge Instructions: All discharge instructions reviewed with patient and/or family. Voiced understanding. Take Bactrim as prescribed Plenty of fluids Scripts Sulfamethoxazole/Trimethoprim (Bactrim Ds Tablet) 1 Each Tablet 1 EACH PO twice a day, #14 TAB Prov: TWILA LAWLER MD 03/12/18 TWILA LAWLER MD March 12, 2018 09:34
[2018-03-12 09:52] VITALS: BP 125/88
--- OUTSIDE RECORDS SUMMARY | 2018-03-13 16:01 | XMS REPORT | Clinical Summary ---
Author Author [facility] Organization [facility] Address Unknown Phone Unavailable Care Team Providers Care Pasting Machine Offbearer Name Role Phone Patrick Ryan MD PCP Source Comments Some departments are not documenting in the electronic medical record. If you do not see the information that you expected, contact Release of Information in the Health Information Management department at [phone] for further assistance in locating additional records.[facility] Allergies Active Allergy Reactions Severity Noted [...]
--- OUTSIDE RECORDS SUMMARY | 2018-03-13 16:03 | XMS REPORT ---
Author Author REGAN SAWYER 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 279049285 Problem Borderline personality disorder F60.3 Active 44795138 Problem High risk medication use Z79.899 Active 612266207 Problem Schizoaffective disorder, unspecified F25.9 Active 23818951 Problem Paranoid schizophrenia F20.0 Active 27563560 Problem Posttraumatic stress disorder F43.10 Active 94200840 Problem Attention deficit hyperactivity disorder (ADHD), inattentive type, 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 88641099 Problem Posttraumatic stress disorder 309.81 Active 73850861 Problem Obsessive-compulsive disorders 300.3 Active 027087743 Problem Generalized anxiety disorder 300.02 Active 97077626 Problem Attention deficit disorder 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 314.00 Active 58484351 Problem Bipolar disorder, unspecified 296.80 Active 05775308 ALLERGIES No Information ENCOUNTERS Encounter Location Date Diagnosis [facility] [id number] [address] Jan, [facility] [id number] [address] 1306 Jan, Paranoid schizophrenia F20.0 [facility] [id number] [place] [address]79[address]- 5560 Jan, Paranoid schizophrenia F20.0 ; Posttraumatic stress disorder F43.10 ; Attention deficit hyperactivity disorder (ADHD), inattentive type, 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 and Borderline personality disorder F60.3 [facility] [address] [address] Dec, [facility] [address] [address] 6[address] Nov, Paranoid schizophrenia F20.0 ; Posttraumatic stress disorder F43.10 ; Attention deficit hyperactivity disorder (ADHD), inattentive type, 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 and Borderline personality disorder F60.3 [facility] [address] [address] Nov, [facility] [id number] [place] [address] 04298- 7614 Oct, Paranoid schizophrenia F20.0 [facility] [address] [address] 1685 Oct, Paranoid schizophrenia F20.0 ; Posttraumatic stress disorder F43.10 ; Attention deficit hyperactivity disorder (ADHD), inattentive type, 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 ; Borderline personality disorder F60.3 and Other halfway ( 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 Z79.899 [facility] [address] [address] Oct, [facility] [address] [address] 5[address] Oct, [facility] [address] [address] 56[address] Sep, [facility] [address] [address] 2446 Sep, Paranoid schizophrenia F20.0 ; Posttraumatic stress disorder F43.10 ; Attention deficit hyperactivity disorder (ADHD), inattentive type, 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10 ; Attention deficit hyperactivity disorder (ADHD), inattentive type, 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 and Borderline personality disorder F60.3 [facility] [address] [address] 12[address] Aug, [facility] [address] [place] [address] 43398- 5544 Jul, Paranoid schizophrenia F20.0 ; Posttraumatic stress disorder F43.10 ; Attention deficit hyperactivity disorder (ADHD), inattentive type, 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 and Borderline personality disorder F60.3 [facility] [address] [address] 4350 Jul, Paranoid schizophrenia F20.0 [facility] [address] [address]- 9570 Jul, Paranoid schizophrenia F20.0 ; Posttraumatic stress disorder F43.10 ; Attention deficit hyperactivity disorder (ADHD), inattentive type, 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 and Borderline personality disorder F60.3 [facility] [id number] [address]- 3582 Jun, Paranoid schizophrenia F20.0 ; Posttraumatic stress disorder F43.10 ; Attention deficit hyperactivity disorder (ADHD), inattentive type, 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 and Borderline personality disorder F60.3 [facility] [address] [address]- 9453 May, Other halfway (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 Z79.899 [facility] [address] [address]- 9360 May, [facility] [address] [address]- 0555 May, [facility] [address] [address]- 3240 May, Attention deficit hyperactivity disorder (ADHD), inattentive type, 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 [facility] [address] [address]- 8127 May, [facility] [address] [address]- 3070 May, Attention deficit hyperactivity disorder (ADHD), inattentive type, 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 [facility] [address] [address]- 7051 May, Paranoid schizophrenia F20.0 ; Posttraumatic stress disorder F43.10 ; Attention deficit hyperactivity disorder (ADHD), inattentive type, 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 and Other halfway (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 Z79.899 [facility] [address] [address]- 7986 Apr, Paranoid schizophrenia F20.0 [facility] [address] [address]- 6370 Apr, Paranoid schizophrenia F20.0 ; Posttraumatic stress disorder F43.10 and Attention deficit hyperactivity disorder (ADHD), inattentive type, 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 [facility] [address] [address]- 1781 February, [facility] [id number] [address]- 67[address] February, Paranoid schizophrenia F20.0 ; Posttraumatic stress disorder F43.10 and Attention deficit hyperactivity disorder (ADHD), inattentive type, 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 [facility] [id number] [address] 4210 February, Paranoid schizophrenia F20.0 ; Posttraumatic stress disorder F43.10 and Attention deficit hyperactivity disorder (ADHD), inattentive type, 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 [facility] [address] [address] Jan, Paranoid schizophrenia F20.0 ; Posttraumatic stress disorder F43.10 and Attention deficit hyperactivity disorder (ADHD), inattentive type, 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 [facility] [address] [id number] [address] Dec, Dental examination Z01.20 [facility] [id number] [place] [address] [id number] Nov, Dental examination Z01.20 [facility] [id number] [place] [address] [id number] Nov, Dental examination Z01.20 [facility] [id number] [place] [address] [id number] Nov, Dental caries K02.9 [facility] [address] [place] [address] 04215- 6407 Nov, High risk medication use Z79.899 [facility] [address] [place] [address] 12344- 8412 Nov, Paranoid schizophrenia F20.0 ; Posttraumatic stress disorder F43.10 ; Attention deficit hyperactivity disorder (ADHD), inattentive type, 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 and Borderline personality disorder in adult F60.3 [facility] [address] [address] Oct, Dental caries K02.9 [facility] [address] [place] [address] 97106- 7793 Sep, Paranoid schizophrenia F20.0 ; Posttraumatic stress disorder F43.10 and Attention deficit hyperactivity disorder (ADHD), inattentive type, 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 [facility] [address] [address] Aug, Paranoid schizophrenia F20.0 ; Posttraumatic stress disorder F43.10 and Attention deficit hyperactivity disorder (ADHD), inattentive type, 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 [facility] [address] [address] Aug, Strep throat J02.0 and Cough R05 [facility] [address] [id number] [address]- 5692 Aug, [facility] [address] [place] [address] 86243- 5570 Jul, Paranoid schizophrenia F20.0 ; Posttraumatic stress disorder F43.10 and Attention deficit hyperactivity disorder (ADHD), inattentive type, 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 [facility] [address] [address]- 3187 Jul, [facility] [id number] [place] [address] 77329- 5277 Jun, Paranoid schizophrenia F20.0 ; Posttraumatic stress disorder F43.10 and Attention deficit hyperactivity disorder (ADHD), inattentive type, 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 [facility] [address] [address] Jun, Dental examination Z01.20 [facility] [address] [place] [address] 59188- 4553 Jun, [facility] [address] [place] [address] 59300- 8013 May, Paranoid schizophrenia F20.0 [facility] [address] [address]- 6183 May, Paranoid schizophrenia F20.0 ; Posttraumatic stress disorder F43.10 and Attention deficit hyperactivity disorder (ADHD), inattentive type, 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 [facility] [address] [address]- 3749 May, [facility] [address] [address]- 3553 May, Paranoid schizophrenia F20.0 [facility] [address] [address]- 4671 May, [facility] [address] [facility] [id number] [address]- 0252 May, Paranoid schizophrenia F20.0 [facility] [address] [facility] [id number] [address]- 1659 May, Schizoaffective disorder, unspecified F25.9 [facility] [address] [facility] [id number] [address]- 3361 May, Schizoaffective disorder, unspecified F25.9 [facility] [address] [facility] [id number] [address]- 6088 May, [facility] [address] [facility] [id number] [address]- 9042 May, Paranoid schizophrenia F20.0 [facility] [id number] [address]- 9822 May, Paranoid schizophrenia F20.0 ; Posttraumatic stress disorder F43.10 and Attention deficit hyperactivity disorder (ADHD), inattentive type, 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 [facility] [address] [facility] [id number] [address]- 0532 Mar, [facility] [id number] [address]- 4570 Mar, Paranoid schizophrenia F20.0 ; Posttraumatic stress disorder F43.10 and Attention deficit hyperactivity disorder (ADHD), inattentive type, 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 [facility] [id number] [address]- 2249 Mar, Paranoid schizophrenia F20.0 [facility] [address] [facility] [id number] [address]- 7974 Mar, Paranoid schizophrenia F20.0 ; Attention deficit hyperactivity disorder (ADHD), inattentive type, 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 and Posttraumatic stress disorder F43.10 [facility] [address] [facility] [id number] [address]- 4393 Mar, [facility] [id number] [address]- 3474 Mar, Paranoid schizophrenia F20.0 ; Posttraumatic stress disorder F43.10 and Attention deficit hyperactivity disorder (ADHD), inattentive type, 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 [facility] [address] [id number] [address]84 February, [facility] [address] [id number] [place] [address] 54013- 8466 February, [facility] [address] [facility] [id number] [place] [address] 30518- 6445 February, [facility] [address] [id number] [place] [address] 28904- 4422 February, [facility] [id number] [place] [address] 43602- 8511 Jan, Paranoid schizophrenia F20.0 [facility] [address] [id number] [place] [address] [id number] Jan, Dental examination Z01.20 [facility] [address] [id number] [place] [address] [id number] Jan, Dental caries K02.9 [facility] [address] [id number] [place] [address] [id number] Jan, Dental examination Z01.20 [facility] [address] [id number] [place] [address] [id number] Dec, Encounter for dental examination Z01.20 [facility] [address] [id number] [place] [address] [id number]- 7783 Dec, Paranoid schizophrenia F20.0 [facility] [id number] [place] [address] [id number] Dec, Dental examination Z01.20 [facility] [address] [id number] [address]041 Dec, [facility] [id number] [address]- 9990 Dec, Paranoid schizophrenia F20.0 ; Posttraumatic stress disorder F43.10 and Attention deficit hyperactivity disorder (ADHD), inattentive type, 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 [facility] [address] [address]- 9664 Nov, Schizoaffective disorder, unspecified F25.9 [facility] [address] [address]- 5090 Oct, Paranoid schizophrenia F20.0 [facility] [address] [address]- 7023 Oct, [facility] [address] [address]- 7167 Sep, Paranoid schizophrenia F20.0 ; Posttraumatic stress disorder F43.10 and Attention deficit hyperactivity disorder (ADHD), inattentive type, 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 [facility] [address] [address]- 4129 Sep, [facility] [address] [address]- 5575 Sep, Paranoid schizophrenia F20.0 ; Posttraumatic stress disorder F43.10 and Attention deficit hyperactivity disorder (ADHD), inattentive type, 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 [facility] [id number] [address]- 8554 Aug, Paranoid schizophrenia F20.0 [facility] [id number] [address]- 9265 Aug, [facility] [id number] [address]- 5265 Aug, Posttraumatic stress disorder F43.10 ; Paranoid schizophrenia F20.0 and Attention deficit hyperactivity disorder (ADHD), inattentive type, 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 [facility] [id number] [address]- 9189 Jul, Bipolar disorder, unspecified F31.9 [facility] [address] [address]- 5527 Jul, [facility] [address] [address]- 7346 Jun, [facility] [address] [address] Jun, Schizoaffective disorder, chronic 295.72 ; Posttraumatic stress disorder 309.81 and Attention deficit disorder 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 314.00 [facility] [address] [address]- 4499 May, [facility] [address] [place] [address] 44865- 4962 May, [facility] [address] [address]- 8912 May, Schizoaffective disorder, chronic 295.72 ; Posttraumatic stress disorder 309.81 ; Attention deficit disorder 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 314.00 and Bipolar disorder, unspecified 296.80 [facility] [address] [address]- 4198 Apr, Schizoaffective disorder, chronic 295.72 [facility] [address] [address]- 4962 Apr, [facility] [address] [address]- 5937 Apr, Schizoaffective disorder, chronic 295.72 ; Posttraumatic stress disorder 309.81 and Attention deficit disorder 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 314.00 [facility] [address] [address]- 7814 Mar, Disorganized schizophrenia, 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 [facility] [address] [address]- 7609 Mar, [facility] [address] [address]- 7115 Mar, [facility] [address] [address]- 2241 Mar, [facility] [id number] [place] [address] 62175- 0246 Mar, [facility] [address] [address]- 1666 February, Schizoaffective disorder, chronic 295.72 [facility] [id number] [place] [address] 24283- 7106 February, [facility] [id number] [place] [address] 94457- 6606 February, Attention deficit disorder 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 314.00 ; Posttraumatic stress disorder 309.81 and Schizoaffective disorder, chronic 295.72 [facility] [id number] [place] [address] 17789- 9306 Jan, [facility] [address] [address]- 4060 Jan, [facility] [address] [id number] [address]- 7603 Jan, [facility] [address] [address]- 5266 Dec, [facility] [address] [address]- 3809 Dec, [facility] [address] [address]- 1796 Dec, [facility] [address] [address]- 8118 Dec, [facility] [address] [id number] [address]- 1206 Dec, [facility] [address] [address]- 1936 Dec, [facility] [place] [facility] [address] [id number] [place] [address]- 5907 Dec, [facility] [place] [facility] [address] [id number] [place] [address]- 3937 Dec, [facility] [place] [facility] [address] [id number] [place] [address]- 0802 Nov, 2014 [facility] [place] [facility] [address] [id number] [place] [address]- 2035 Nov, [facility] [place] [facility] [address] [id number] [place] [address]- 3379 Nov, 2014 [facility] [place] [facility] [address] [id number] [place] [address]- 4887 Nov, 2014 [facility] [place] [facility] [address] [facility] [id number] [place] [address]- 0861 Nov, [facility] [place] [facility] [address] [id number] [place] [address]- 4485 Nov, 2014 [facility] [place] [facility] [address] [id number] [place] [address]- 9574 Nov, [facility] [place] [facility] [address] [facility] [id number] [place] [address]- 0654 Nov, [facility] [place] [facility] [address] [id number] [place] [address]- 8965 Nov, [facility] [place] [facility] [address] [id number] [place] [address]- 9814 Nov, [facility] [place] [facility] [address] [id number] [place] [address]- 4358 Oct, [facility] [place] [facility] [address] [id number] [place] [address]- 7944 Oct, [facility] [place] [facility] [address] [facility] [id number] [place] [address]- 6837 Oct, [facility] [place] [facility] [address] [id number] [place] [address]- 7179 15 Oct, 2014 [facility] [place] [facility] [address] [id number] [place] [address]- 5197 15 Oct, 2014 [facility] [place] [facility] [address] [id number] [place] [address]- 2088 13 Oct, 2014 [facility] [place] [facility] [address] [id number] [place] [address]- 9138 13 Oct, 2014 [facility] [place] [facility] [address] [id number] [place] [address]- 2041 17 Sep, 2014 [facility] [place] [facility] [address] [id number] [place] [address]- 7267 17 Sep, 2014 [facility] [place] [facility] [address] [id number] [place] [address]- 0197 15 Sep, 2014 [facility] [place] [facility] [address] [id number] [place] [address]- 3819 15 Sep, 2014 [facility] [place] [facility] [address] [id number] [place] [address]- 0900 20 Aug, 2014 [facility] [place] [facility] [address] [id number] [place] [address]- 1697 20 Aug, 2014 [facility] [place] [facility] [address] [id number] [place] [address]- 4546 14 Aug, 2014 [facility] [place] [facility] [address] [id number] [place] [address]- [address] 14 Aug, 2014 [facility] [place] [facility] [address] [id number] [place] [address] 14 Aug, 2014 [facility] [place] [facility] [address] [id number] [place] [address] Aug, [facility] [place] [facility] [address] [id number] [place] [address] Jul, [facility] [place] [facility] [address] [id number] [place] [address] Jul, [facility] [place] [facility] [address] [id number] [place] [address] 24 Jul, 2014 [facility] [place] [facility] [address] [id number] [place] [address] 24 Jul, 2014 [facility] [place] [facility] [address] [id number] [place] [address] 15 Jul, 2014 [facility] [place] [facility] [address] [id number] [place] [address] 15 Jul, 2014 [facility] [place] [facility] [address] [id number] [place] [address] 27 Sep, 2013 [facility] [place] [facility] [address] [id number] [place] [address] 27 Jun, 2013 [facility] [place] [facility] [address] [id number] [place] [address] 26 Jun, 2013 [facility] [place] [facility] [address] [id number] [place] [address] 26 Jun, 2013 [facility] [place] [facility] [address] [id number] [place] [address] 26 Jun, 2013 [facility] [place] [facility] [address] [id number] [place] [address] 26 Jun, 2013 [facility] [place] [facility] [address] [id number] [place] [address] 16 Sep, 2013 [facility] [place] [facility] [address] [id number] [place] [address] 16 Sep, 2013 [facility] [place] [facility] [address] [id number] [place] [address] 16 Sep, 2013 [facility] [place] [facility] [address] [id number] [place] [address] 16 Jun, 2013 [facility] [place] [facility] [address] [id number] [place] [address] 04 Jun, 2013 [facility] [place] [facility] [address] [id number] [place] [address] May, [facility] [place] [facility] [address] [id number] [place] [address] May, [facility] [facility] [address] [id number] [place] [address] May, [facility] [place] [facility] [address] [id number] [place] [address] 4670 May, [facility] [place] [facility] [address] [id number] [place] [address] May, [facility] [place] [facility] [address] [id number] [place] [address] 7035 May, [facility] [place] [facility] [address] [id number] [place] [address] 5734 May, [facility] [place] [facility] [address] [id number] [place] [address] 5978 May, [facility] [place] [facility] [address] [id number] [place] [address] 2326 May, [facility] [place] [facility] [address] [id number] [place] [address] 3947 May, [facility] [place] [facility] [address] [id number] [place] [address] 4854 Apr, [facility] [place] [facility] [address] [id number] [place] [address] 4993 Apr, [facility] [place] [facility] [address] [id number] [place] [address] 4515 Apr, [facility] [place] [facility] [address] [id number] [place] [address]- 4328 Apr, [facility] [place] [facility] [address] [id number] [place] [address]- 3473 Apr, [facility] [place] [facility] [address] [id number] [place] [address]- 4650 Apr, [facility] [place] [facility] [address] [id number] [place] [address]- 4530 17 Apr, 2014 [facility] [place] [facility] [address] [id number] [place] [address]- 2657 15 Apr, 2014 [facility] [place] [facility] [address] [id number] [place] [address]- 0276 15 Apr, 2014 [facility] [place] [facility] [address] [id number] [place] [address] 1927 Apr, [facility] [place] [facility] [address] [id number] [place] [address] 7613 Mar, [facility] [place] [facility] [address] [id number] [place] [address]- 2544 Mar, [facility] [place] [facility] [address] [id number] [place] [address]- 3505 Mar, [facility] [place] [facility] [address] [id number] [place] [address]- 0831 24 Mar, 2014 [facility] [place] [facility] [address] [id number] [place] [address]- 4531 Mar, [facility] [place] [facility] [address] [id number] [place] [address]- 7306 Mar, [facility] [place] [facility] [address] [id number] [place] [address]- 8521 18 Mar, 2014 [facility] [place] [facility] [address] [id number] [place] [address]- 5128 16 Mar, 2014 [facility] [place] [facility] [address] [id number] [place] [address]- 1276 16 Mar, 2014 [facility] [place] [facility] [address] [id number] [place] [address]- 0662 13 Mar, 2014 [facility] [place] [facility] [address] [id number] [place] [address]- 2498 13 Mar, 2014 [facility] [place] [facility] [address] [id number] [place] [address]- 7091 Mar, [facility] [place] [facility] [address] [id number] [place] [address]- 4187 Mar, [facility] [place] [facility] [address] [id number] [place] [address] 1911 Mar, [facility] [place] [facility] [address] [id number] [place] [address]- 0260 Mar, [facility] [place] [facility] [address] [id number] [place] [address]- 7384 Mar, [facility] [place] [address] [id number] [place] [address]- 9480 Mar, [facility] [place] [facility] [address] [id number] [place] [address]- 2688 Mar, [facility] [place] [facility] [address] [id number] [place] [address]- 9056 Mar, [facility] [place] [facility] [address] [id number] [place] [address]- 5062 Mar, [facility] [place] [facility] [address] [id number] [place] [address]- 6628 February, [facility] [place] [facility] [address] [id number] [place] [address]- 5573 February, [facility] [place] [address] [id number] [place] [address]- 6621 February, [facility] [address] [id number] [place] [address]- 9973 February, [facility] [address] [id number] [place] [address]- 0169 February, [facility] [address] [id number] [place] [address]- 9272 February, [facility] [place] [address] [id number] [place] [address] 1985 February, [facility] [address] [id number] [place] [address]- 3731 February, [facility] [address] [id number] [place] [address]- 0964 February, [facility] [address] [id number] [place] [address]- 0330 February, [facility] [address] [id number] [place] [address]- 0537 February, [facility] [address] [id number] [place] [address]- 3601 February, [facility] [address] [id number] [place] [address]- 7374 February, [facility] [address] [id number] [place] [address]- 8115 February, [facility] [address] [id number] [place] [address]- 0730 February, [facility] [address] [id number] [place] [address]- 7385 February, [facility] [address] [id number] [place] [address]- 2434 February, [facility] [address] [id number] [place] [address]- 5888 February, [facility] [address] [id number] [place] [address]- 0721 February, [facility] [address] [id number] [place] [address]- 7213 February, [facility] [address] [id number] [place] [address]- 9535 February, [facility] [address] [id number] [place] [address]- 2140 Jan, [facility] [address] [id number] [place] [address]- 8173 Jan, [facility] [address] [id number] [place] [address] 9771 18 Jan, 2014 [facility] [address] [id number] [place] [address]- 7480 18 Jan, 2014 [facility] [address] [id number] [place] [address]- 3936 18 Jan, 2014 [facility] [address] [id number] [place] [address]- 6206 18 Jan, 2014 [facility] [address] [id number] [place] [address]- 5664 10 Jan, 2014 [facility] [address] [id number] [place] [address]- 4951 10 Jan, 2014 [facility] [address] [id number] [place] [address]- 3857 21 Dec, 2013 [facility] [address] [id number] [place] [address]- 2511 20 Dec, 2013 [facility] [address] [id number] [place] [address]- 3809 20 Dec, 2013 [facility] [address] [id number] [place] [address]- 9810 19 Dec, 2013 [facility] [address] [id number] [place] [address]- 0438 19 Dec, 2013 [facility] [address] [id number] [place] [address]- 4907 15 Dec, 2013 [facility] [address] [id number] [place] [address]- 6954 15 Dec, 2013 [facility] [address] [id number] [place] [address]- 2946 11 Dec, 2013 [facility] [address] [id number] [place] [address]- 3146 10 Dec, 2013 [facility] [address] [id number] [place] [address]- 4993 Dec, [facility] [address] [id number] [place] [address]- 2340 Nov, [facility] [address] [id number] [place] [address]- 4936 Nov, [facility] [address] [id number] [place] [address]- 3596 Nov, [facility] [address] [id number] [place] [address]- 2440 Nov, [facility] [address] [id number] [place] [address]- 7065 Nov, [facility] [address] [id number] [place] [address]- 7230 Oct, [facility] [address] [id number] [place] [address]- 7951 Oct, [facility] [address] [id number] [place] [address]- 8021 Oct, [facility] [address] [id number] [place] [address]- 4210 Sep, [facility] [address] [id number] [place] [address]- 2798 Sep, [facility] [address] [id number] [place] [address]- 4373 Sep, [facility] [address] [id number] [place] [address]- 4223 Sep, [facility] [address] [id number] [place] [address]- 4209 Aug, [facility] [address] [id number] [place] [address]- 4109 Aug, [facility] [address] [id number] [place] [address]- 4221 Jul, [facility] [address] [id number] [place] [address]- 9312 Jul, [facility] [address] [id number] [place] [address]- 7883 Jul, [facility] [address] [id number] [place] [address]- 2546 Jul, [facility] [address] [id number] [place] [address]- 3304 Jul, [facility] [address] [id number] [place] [address]- 5162 Jun, [facility] [address] [id number] [place] [address]- 7565 25 Jun, 2013 [facility] [address] [id number] [place] [address]- 2804 19 Jun, 2013 [facility] [address] [id number] [place] [address]- 5366 18 Jun, 2013 [facility] [address] [id number] [place] [address]- 0245 16 Jun, 2013 [facility] [address] [id number] [place] [address]- 0963 12 Jun, 2013 [facility] [address] [id number] [place] [address]- 6517 Jun, [facility] [address] [id number] [place] [address] 2542 30 May, 2013 [facility] [address] [id number] [place] [address]- 2542 May, [facility] [address] [id number] [place] [address]- 9721 Apr, [facility] [address] [id number] [place] [address] 2548 Apr, [facility] [address] [id number] [place] [address]- 4233 Apr, [facility] [address] [id number] [place] [address]- 7318 Mar, [facility] [address] [id number] [place] [address]- 6469 Mar, [facility] [address] [id number] [place] [address]- 0880 February, [facility] [address] [id number] [place] [address]- 9168 February, [facility] [address] [id number] [place] [address]- 9106 February, [facility] [address] [id number] [place] [address]- 4554 February, [facility] [address] [id number] [place] [address]- 7307 Jan, [facility] [address] [id number] [place] [address]- 0898 Jan, [facility] [address] [id number] [place] [address]- 4929 Jan, [facility] [address] [id number] [place] [address]- 7570 Dec, [facility] [address] [id number] [place] [address]- 1523 Dec, [facility] [address] [id number] [place] [address]- 8103 Dec, [facility] [address] [id number] [place] [address]- 7166 Dec, [facility] [address] [id number] [place] [address]- 8308 Nov, [facility] [address] [id number] [place] [address]- 4199 Nov, [facility] [address] [id number] [place] [address]- 6340 Oct, [facility] [address] [id number] [place] [address]- 0752 Oct, [facility] [address] [id number] [place] [address]- 2576 Oct, [facility] [address] [id number] [place] [address]- 8207 Oct, [facility] [address] [id number] [place] [address]- 6004 Aug, [facility] [address] [id number] [place] [address]- 6743 Aug, [facility] [address] [id number] [place] [address]- 1065 Jun, [facility] [facility] [address] [id number] [place] [address]- 6679 May, [facility] [place] [address] [id number] [place] [address]- 5298 May, [facility] [place] [facility] [address] [id number] [place] [address]- 1677 Apr, [facility] [address] [id number] [place] [address]- 4904 Apr, [facility] [address] [id number] [place] [address]- 5078 Apr, [facility] [place] [facility] [address] [id number] [place] [address]- 3402 Mar, [facility] [place] [facility] [address] [id number] [place] [address]- 8244 Mar, [facility] [place] [address] [id number] [place] [address]- 2846 Mar, [facility] [place] [facility] [address] [id number] [place] [address]- 2116 Mar, [facility] [place] [address] [id number] [place] [address]- 2977 Mar, [facility] [address] [id number] [place] [address]- 8173 February, [facility] [address] [id number] [place] [address]- 1494 February, [facility] [address] [id number] [place] [address]- 2030 February, [facility] [address] [id number] [place] [address]- 9481 February, [facility] [address] [id number] [place] [address]- 5957 February, [facility] [address] [id number] [place] [address]- 5982 February, [facility] [address] [id number] [place] [address]- 8620 February, [facility] [address] [id number] [place] [address]- 2137 Jan, [facility] [address] [id number] [place] [address]- 4901 Jan, [facility] [facility] [address] [id number] [place] [address]- 7872 Jan, [facility] [facility] [address] [id number] [place] [address]- 5912 Jan, [facility] [facility] [address] [id number] [place] [address]- 0091 Jan, [facility] [place] [facility] [address] [id number] [place] [address]- 2363 Jan, [facility] [place] [facility] [address] [id number] [place] [address]- 9593 Dec, [facility] [facility] [address] [id number] [place] [address]- 1156 24 Dec, 2011 [facility] [address] [id number] [place] [address]- 8281 20 Dec, 2011 [facility] [place] [facility] [address] [id number] [place] [address]- 4996 13 Dec, 2011 [facility] [address] [facility] [id number] [place] [address]- 2459 Dec, [facility] [place] [facility] [address] [id number] [place] [address]- 4209 Nov, [facility] [place] [facility] [address] [id number] [place] [address]- 1038 Nov, [facility] [place] [facility] [address] [id number] [place] [address]- 6961 Nov, [facility] [address] [facility] [id number] [place] [address]- 9775 14 Nov, 2011 [facility] [place] [facility] [address] [id number] [place] [address]- 0822 Nov, [facility] [place] [facility] [address] [facility] [id number] [place] [address]- 8706 Nov, [facility] [place] [facility] [address] [facility] [id number] [place] [address]- 0980 Oct, [facility] [address] [id number] [place] [address]- 8858 Oct, [facility] [place] [facility] [address] [id number] [place] [address]- 5407 Oct, [facility] [place] [facility] [address] [id number] [place] [address]- 1603 Oct, [facility] [place] [facility] [address] [facility] [id number] [place] 9525 Oct, [facility] [place] [facility] [address] [facility] [id number] [place] [address]- 8543 Sep, [facility] [place] [facility] [address] [id number] [place] [address]- 4660 21 Sep, 2011 [facility] [place] [facility] [address] [id number] [place] [address]- 4376 20 Sep, 2011 [facility] [place] [facility] [address] [id number] [place] [address] 2546 14 Sep, 2011 [facility] [place] [facility] [address] [id number] [place] [address] 2546 14 Sep, 2011 [facility] [place] [facility] [address] [id number] [place] [address] 2544 13 Sep, 2011 [facility] [place] [facility] [address] [id number] [place] [address]- 6405 12 Sep, 2011 [facility] [place] [facility] [address] [id number] [place] [address]- 9528 09 Sep, 2011 [facility] [place] [facility] [address] [id number] [place] [address]- 8820 05 Sep, 2011 [facility] [place] [facility] [address] [id number] [place] [address]- 5446 30 Aug, 2011 [facility] [place] [facility] [address] [id number] [place] [address]- 9190 30 Aug, 2011 [facility] [place] [facility] [address] [id number] [place] [address]- 2867 Aug, [facility] [place] [facility] [address] [id number] [place] [address]- 7628 Aug, [facility] [place] [facility] [address] [id number] [place] [address] 2543 Aug, [facility] [place] [facility] [address] [id number] [place] [address]- 0296 22 Aug, 2011 [facility] [place] [facility] [address] [id number] [place] [address]- 2540 16 Aug, 2011 [facility] [place] [facility] [address] [id number] [place] [address]- 9306 Aug, [facility] [place] [facility] [address] [id number] [place] [address] Aug, [facility] [place] [facility] [address] [id number] [place] [address] Aug, [facility] [place] [facility] [address] [id number] [place] [address] Aug, [facility] [place] [facility] [address] [id number] [place] [address] Aug, [facility] [place] [facility] [address] [id number] [place] [address] Jul, [facility] [place] [facility] [address] [id number] [place] [address] Jul, [facility] [place] [facility] [address] [id number] [place] [address] Jul, [facility] [place] [facility] [address] [id number] [place] [address] Jul, [facility] [place] [facility] [address] [id number] [place] [address] Jul, [facility] [place] [facility] [address] [id number] [place] [address] Jul, [facility] [place] [facility] [address] [id number] [place] [address] Jul, [facility] [place] [facility] [address] [id number] [place] [address] Jul, [facility] [place] [facility] [address] [id number] [place] [address] Jul, [facility] [place] [facility] [address] [id number] [place] [address] Jul, [facility] [place] [facility] [address] [id number] [place] [address] Nov, [facility] [place] [facility] [address] [facility] [id number] [place] [address] Aug, [facility] [address] [facility] [id number] [place] [address] Aug, [facility] [address] [facility] [id number] [place] [address] Aug, [facility] [address] [facility] [id number] [place] [address] 03 Aug, 2010 [facility] [address] [facility] [id number] [place] [address] Jul, IMMUNIZATIONS No Known Immunizations SOCIAL HISTORY Never Assessed REASON FOR VISIT Lab (walk-in) PLAN OF CARE VITAL SIGNS MEDICATIONS Unknown Medications RESULTS Name Result Date Reference Range PROLACTIN 2017-06-20 Prolactin 148.6 4.8-23.3 CBC 2017-06-20 WBC 10.6 3.4-10.8 RBC 5.28 3.77-5.28 Hemoglobin 15.2 11.1-15.9 Hematocrit 44.0 34.0-46.6 MCV 83 79-97 MCH 28.8 26.6-33.0 MCHC 34.5 31.5-35.7 RDW 13.6 12.3-15.4 Platelets 261 150-379 Neutrophils 46 Lymphs 42 Monocytes 8 Eos 4 Basos 0 Neutrophils (Absolute) 4.8 1.4-7.0 Lymphs (Absolute) 4.5 0.7-3.1 Monocytes(Absolute) 0.8 0.1-0.9 Eos (Absolute) 0.5 0.0-0.4 Baso (Absolute) 0.0 0.0-0.2 Immature Granulocytes 0 Immature Grans (Abs) 0.0 0.0-0.1 LIPID PANEL 2017-06-20 Cholesterol, Total 189 100-199 Triglycerides 207 0-149 HDL Cholesterol 32 >39 VLDL Cholesterol Naren 41 5-40 LDL Cholesterol Calc 116 0-99 CMP 2017-06-20 Glucose, Serum 122 65-99 BUN 16 6-20 Creatinine, Serum 0.67 0.57-1.00 eGFR If NonAfricn Am 113 >59 eGFR If Africn Am 131 >59 BUN/Creatinine Ratio 24 9-23 Sodium, Serum 141 134-144 Potassium, Serum 4.3 3.5-5.2 Chloride, Serum 104 96-106 Carbon Dioxide, Total 19 18-29 Calcium, Serum 9.6 8.7-10.2 Protein, Total, Serum 6.2 6.0-8.5 Albumin, Serum 4.0 3.5-5.5 Globulin, Total 2.2 1.5-4.5 A/G Ratio 1.8 1.2-2.2 Bilirubin, Total 0.2 0.0-1.2 Alkaline Phosphatase, S 131 39-117 AST (SGOT) 21 0-40 ALT (SGPT) 26 0-32 PROCEDURES Procedure Date Ordered Result Body Site EKG, TRACING (IN-HOUSE) 2017-06-20 N/A LAB NOT BILLED BY [facility] Jun 20, 2017 ELECTROCARDIOGRAM, TRACING Jun 20, 2017 VENIPUNCT, ROUTINE* Jun 20, 2017 INSTRUCTIONS MEDICATIONS ADMINISTERED No Known Medications MEDICAL (GENERAL) HISTORY Type Description Date Medical History diabetes Medical History thyroid Surgical History appendix Surgical History gallbladder Surgical History eyes Surgical History hip Surgical History MRI on back and pelvis 06/08 Hospitalization History surgeries Hospitalization History [facility] Suicide attempt by hanging 06/14/2016
--- OUTSIDE RECORDS SUMMARY | 2018-03-13 16:05 | XMS REPORT ---
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 654955333 Problem Borderline personality disorder F60.3 Active 62235809 Problem High risk medication use Z79.899 Active 892558426 Problem Schizoaffective disorder, unspecified F25.9 Active 16659897 Problem Paranoid schizophrenia F20.0 Active 50947205 Problem Posttraumatic stress disorder F43.10 Active 38457768 Problem Attention deficit hyperactivity disorder (ADHD), inattentive type, 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 65430763 Problem Posttraumatic stress disorder 309.81 Active 44884204 Problem Obsessive-compulsive disorders 300.3 Active 010680417 Problem Generalized anxiety disorder 300.02 Active 19096697 Problem Attention deficit disorder 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 314.00 Active 49813818 Problem Bipolar disorder, unspecified 296.80 Active 83448748 ALLERGIES No Information ENCOUNTERS Encounter Location Date Diagnosis [facility] [id number] [address] Jan, [facility] [id number], [place] [address] Jan, Paranoid schizophrenia F20.0 [facility] [id number] [address] 93[address] Jan, Paranoid schizophrenia F20.0 ; Posttraumatic stress disorder F43.10 ; Attention deficit hyperactivity disorder (ADHD), inattentive type, 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 and Borderline personality disorder F60.3 [facility] [address], [place] [address] Dec, [facility] [id number] [place] [address] 82665- 3823 Nov, Paranoid schizophrenia F20.0 ; Posttraumatic stress disorder F43.10 ; Attention deficit hyperactivity disorder (ADHD), inattentive type, 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 and Borderline personality disorder F60.3 [facility] [id number] [place] [address] 09028- 0337 Nov, [facility] [address] [address] Oct, Paranoid schizophrenia F20.0 [facility] [id number] [address] 7[address] Oct, Paranoid schizophrenia F20.0 ; Posttraumatic stress disorder F43.10 ; Attention deficit hyperactivity disorder (ADHD), inattentive type, 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 ; Borderline personality disorder F60.3 and Other intermediate ( 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 Z79.899 [facility] [id number], [place] [address] Oct, [facility] [id number] [place] [address] 53892- 0606 Oct, [facility] [address] [address] 9[address] Sep, [facility] [id number], [place] [address] 6204 Sep, Paranoid schizophrenia F20.0 ; Posttraumatic stress disorder F43.10 ; Attention deficit hyperactivity disorder (ADHD), inattentive type, 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 and Borderline personality disorder F60.3 [facility] [address], [place] [address] 7306 Sep, Paranoid schizophrenia F20.0 [facility] [id number], [place] [address] 40[address] Aug, Paranoid schizophrenia F20.0 ; Posttraumatic stress disorder F43.10 ; Attention deficit hyperactivity disorder (ADHD), inattentive type, 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10 ; Attention deficit hyperactivity disorder (ADHD), inattentive type, 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 and Borderline personality disorder F60.3 [facility] [id number], [place] [address]- 0357 Jul, Paranoid schizophrenia F20.0 [facility] [id number], [place] [address] 5230 Jul, Paranoid schizophrenia F20.0 ; Posttraumatic stress disorder F43.10 ; Attention deficit hyperactivity disorder (ADHD), inattentive type, 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 and Borderline personality disorder F60.3 [facility] [address], [place] [address] 134[address] Jun, Paranoid schizophrenia F20.0 ; Posttraumatic stress disorder F43.10 ; Attention deficit hyperactivity disorder (ADHD), inattentive type, 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 and Borderline personality disorder F60.3 [facility] [address], [place] [address] 2262 May, 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 [facility] [id number], [place] [address] 4109 May, [facility] [id number] [place] [address] 44768- 5030 May, [facility] [id number], [place] [address] 7743 May, Attention deficit hyperactivity disorder (ADHD), inattentive type, 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 [facility] [id number], [place] [address]- 7919 May, [facility] [address], [place] [address]- 7815 May, Attention deficit hyperactivity disorder (ADHD), inattentive type, 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 [facility] [id number], [place] [address]- 7825 May, Paranoid schizophrenia F20.0 ; Posttraumatic stress disorder F43.10 ; Attention deficit hyperactivity disorder (ADHD), inattentive type, 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 and Other intermediate (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 Z79.899 [facility] [id number], [place] [address]- 2176 Apr, Paranoid schizophrenia F20.0 [facility] [id number], [place] [address]- 6398 Apr, Paranoid schizophrenia F20.0 ; Posttraumatic stress disorder F43.10 and Attention deficit hyperactivity disorder (ADHD), inattentive type, 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 [facility] [id number], [place] [address]- 92[address] February, [facility] [id number], [place] [address]- 1067 February, Paranoid schizophrenia F20.0 ; Posttraumatic stress disorder F43.10 and Attention deficit hyperactivity disorder (ADHD), inattentive type, 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 [facility] [id number], [place] [address]- [address] February, Paranoid schizophrenia F20.0 ; Posttraumatic stress disorder F43.10 and Attention deficit hyperactivity disorder (ADHD), inattentive type, 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 [facility] [address], [place] [address]- 7451 Jan, Paranoid schizophrenia F20.0 ; Posttraumatic stress disorder F43.10 and Attention deficit hyperactivity disorder (ADHD), inattentive type, 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 [facility] [address] [id number] [id number] Dec, Dental examination Z01.20 [facility] [address] [id number] [address] Nov, Dental examination Z01.20 [facility] [id number] [place] [address] [id number] Nov, Dental examination Z01.20 [facility] [id number] [place] [address] [id number] Nov, Dental caries K02.9 [facility] [id number] [place] [address] 24090- 3029 Nov, High risk medication use Z79.899 [facility] [address], [place] [address]- 8231 Nov, Paranoid schizophrenia F20.0 ; Posttraumatic stress disorder F43.10 ; Attention deficit hyperactivity disorder (ADHD), inattentive type, 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 and Borderline personality disorder in adult F60.3 [facility] [id number] [address] Oct, Dental caries K02.9 [facility] [address], [place] [address]- 7230 Sep, Paranoid schizophrenia F20.0 ; Posttraumatic stress disorder F43.10 and Attention deficit hyperactivity disorder (ADHD), inattentive type, 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 [facility] [address] [address] Aug, Paranoid schizophrenia F20.0 ; Posttraumatic stress disorder F43.10 and Attention deficit hyperactivity disorder (ADHD), inattentive type, 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 [facility] [id number], [place] [address] Aug, Strep throat J02.0 and Cough R05 [facility] [id number] [place] [address] 55711- 6082 Aug, [facility] [id number] [place] [address] 26786- 4551 Jul, Paranoid schizophrenia F20.0 ; Posttraumatic stress disorder F43.10 and Attention deficit hyperactivity disorder (ADHD), inattentive type, 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 [facility] [id number] [place] [address] 90321- 3432 Jul, [facility] [id number] [place] [address] 63851- 7318 Jun, Paranoid schizophrenia F20.0 ; Posttraumatic stress disorder F43.10 and Attention deficit hyperactivity disorder (ADHD), inattentive type, 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 [facility] [id number] [place] [address] [id number] Jun, Dental examination Z01.20 [facility] [id number] [place] [address] 69769- 7452 Jun, [facility] [id number] [place] [address] 09804- 1426 May, Paranoid schizophrenia F20.0 [facility] [id number] [place] [address] 46425- 4078 May, Paranoid schizophrenia F20.0 ; Posttraumatic stress disorder F43.10 and Attention deficit hyperactivity disorder (ADHD), inattentive type, 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 [facility] [id number], [place] [address]- 0965 May, [facility] [id number] [place] [address] 78142- 0654 May, Paranoid schizophrenia F20.0 [facility] [id number], [place] [address]- 3311 May, [facility] [address] [facility] [id number] [address]- 3003 May, Paranoid schizophrenia F20.0 [facility] [address] [facility] [id number] [place] [address]- 2052 May, Schizoaffective disorder, unspecified F25.9 [facility] [address] [facility] [id number] [place] [address]- 0906 May, Schizoaffective disorder, unspecified F25.9 [facility] [address] [facility] [id number] [place] [address]- 2207 May, [facility] [address] [facility] [id number] [place] [address]- 8544 May, Paranoid schizophrenia F20.0 [facility] [id number] [place] [address]- 9110 May, Paranoid schizophrenia F20.0 ; Posttraumatic stress disorder F43.10 and Attention deficit hyperactivity disorder (ADHD), inattentive type, 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 [facility] [address] [facility] [id number] [place] [address]- 8573 Mar, [facility] [address] [facility] [id number] [place] [address]- 8075 Mar, Paranoid schizophrenia F20.0 ; Posttraumatic stress disorder F43.10 and Attention deficit hyperactivity disorder (ADHD), inattentive type, 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 [facility] [address] [facility] [id number], [place] [address]- 3796 Mar, Paranoid schizophrenia F20.0 [facility] [address] [facility] [id number] [place] [address]- 0823 Mar, Paranoid schizophrenia F20.0 ; Attention deficit hyperactivity disorder (ADHD), inattentive type, 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 and Posttraumatic stress disorder F43.10 [facility] [address] [facility] [id number] [place] [address]- 9053 Mar, [facility] [id number], [place] [address]- 3231 Mar, Paranoid schizophrenia F20.0 ; Posttraumatic stress disorder F43.10 and Attention deficit hyperactivity disorder (ADHD), inattentive type, 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 [facility] [address] [id number] [address]- 8460 February, [facility] [address] [facility] [id number] [place] [address] 11283- 0489 February, [facility] [address] [facility] [id number] [place] [address] 35902- 5040 February, [facility] [id number] [place] [address] 82605- 5477 February, [facility] [id number] [place] [address] 06913- 1788 Jan, Paranoid schizophrenia F20.0 [facility] [id number] [place] [address] [id number] Jan, Dental examination Z01.20 [facility] [address] [id number] [place] [address] [id number] Jan, Dental caries K02.9 [facility] [id number] [place] [address] [id number] Jan, Dental examination Z01.20 [facility] [address] [id number] [place] [address] [id number] Dec, Encounter for dental examination Z01.20 [facility] [id number] [place] [address] 90699- 0685 Dec, Paranoid schizophrenia F20.0 [facility] [address] [id number] [place] [address] [id number] Dec, Dental examination Z01.20 [facility] [id number] [place] [address] 99496- 0391 Dec, [facility] [id number] [place] [address] 21811- 2975 Dec, Paranoid schizophrenia F20.0 ; Posttraumatic stress disorder F43.10 and Attention deficit hyperactivity disorder (ADHD), inattentive type, 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 [facility] [address], [place] [address]- 3161 Nov, Schizoaffective disorder, unspecified F25.9 [facility] [id number] [address]- 1041 Oct, Paranoid schizophrenia F20.0 [facility] [id number], [place] [address]- 3788 Oct, [facility] [id number] [place] [address] 42788- 4749 Sep, Paranoid schizophrenia F20.0 ; Posttraumatic stress disorder F43.10 and Attention deficit hyperactivity disorder (ADHD), inattentive type, 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 [facility] [address], [place] [address]- 0092 Sep, [facility] [address], [place] [address]- 2207 Sep, Paranoid schizophrenia F20.0 ; Posttraumatic stress disorder F43.10 and Attention deficit hyperactivity disorder (ADHD), inattentive type, 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 [facility] [address], [place] [address]- 7059 Aug, Paranoid schizophrenia F20.0 [facility] [id number], [place] [address]- 1187 Aug, [facility] [id number] [address]- 7468 Aug, Posttraumatic stress disorder F43.10 ; Paranoid schizophrenia F20.0 and Attention deficit hyperactivity disorder (ADHD), inattentive type, 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 [facility] [address], [place] [address]- 8620 Jul, Bipolar disorder, unspecified F31.9 [facility] [address] [address]- 3796 Jul, [facility] [id number] [place] [address] 70236- 9949 Jun, [facility] [address], [place] [address]- 9335 Jun, Schizoaffective disorder, chronic 295.72 ; Posttraumatic stress disorder 309.81 and Attention deficit disorder 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 314.00 [facility] [address], [place] [address]- 5548 May, [facility] [id number] [place] [address] 35455- 7509 May, [facility] [address], [place] [address]- 6065 May, Schizoaffective disorder, chronic 295.72 ; Posttraumatic stress disorder 309.81 ; Attention deficit disorder 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 314.00 and Bipolar disorder, unspecified 296.80 [facility] [address], [place] [address]- 1878 Apr, Schizoaffective disorder, chronic 295.72 [facility] [id number], [place] [address]- 6749 Apr, [facility] [address] [address]- 5654 Apr, Schizoaffective disorder, chronic 295.72 ; Posttraumatic stress disorder 309.81 and Attention deficit disorder 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 314.00 [facility] [address], [place] [address]- 3131 Mar, Disorganized schizophrenia, 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 [facility] [id number], [place] [address]- 4313 Mar, [facility] [id number] [place] [address] 77436- 8181 Mar, [facility] [id number], [place] [address]- 4757 Mar, [facility] [id number], [place] [address]- 6386 Mar, [facility] [id number], [place] [address]- 6946 February, Schizoaffective disorder, chronic 295.72 [facility] [address] [address]- 0046 February, [facility] [address] [address]- 6326 February, Attention deficit disorder 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 314.00 ; Posttraumatic stress disorder 309.81 and Schizoaffective disorder, chronic 295.72 [facility] [address] [address]- 7456 Jan, [facility] [id number], [place] [address]- 4268 Jan, [facility] [id number], [place] [address]- 8035 Jan, [facility] [id number], [place] [address]- 1876 Dec, [facility] [id number], [place] [address]- 3942 Dec, [facility] [id number], [place] [address] 2546 Dec, [facility] [id number], [place] [address]- 7926 Dec, [facility] [id number], [place] [address]- 8786 Dec, [facility] [id number] [address]- 4906 Dec, [facility] [id number] [address]- 1169 Dec, [facility] [place] [facility] [address] [id number] [place] [address]- 2427 Dec, [facility] [place] [facility] [address] [id number] [place] [address]- 4698 Nov, 2014 [facility] [place] [facility] [address] [id number] [place] [address]- 9356 Nov, 2014 [facility] [place] [facility] [address] [id number] [place] [address]- 7911 Nov, 2014 [facility] [place] [facility] [address] [id number] [place] [address]- 3110 Nov, 2014 [facility] [place] [facility] [address] [facility] [id number] [place] [address]- 8594 Nov, [facility] [place] [facility] [address] [id number] [place] [address]- 8016 Nov, 2014 [facility] [place] [facility] [address] [id number] [place] [address]- 8800 Nov, [facility] [place] [facility] [address] [facility] [id number] [place] [address]- 6326 Nov, [facility] [place] [facility] [address] [facility] [id number] [place] [address]- 4786 Nov, [facility] [place] [facility] [address] [facility] [id number] [place] [address]- 5161 Nov, [facility] [place] [facility] [address] [facility] [id number] [place] [address]- 4461 Oct, [facility] [place] [facility] [address] [id number] [place] [address]- 8599 Oct, [facility] [place] [facility] [address] [facility] [id number] [place] [address]- 7736 Oct, [facility] [place] [facility] [address] [facility] [id number] [place] [address]- 5578 15 Oct, 2014 [facility] [place] [facility] [address] [id number] [place] [address]- 0077 15 Oct, 2014 [facility] [place] [facility] [address] [id number] [place] [address] Oct, [facility] [place] [facility] [address] [id number] [place] [address] Oct, [facility] [place] [facility] [address] [id number] [place] [address] 17 Sep, 2014 [facility] [place] [facility] [address] [id number] [place] [address] 17 Sep, 2014 [facility] [place] [facility] [address] [id number] [place] [address] 15 Sep, 2014 [facility] [place] [facility] [address] [id number] [place] [address] 1986 15 Sep, 2014 [facility] [place] [facility] [address] [id number] [place] [address] Aug, [facility] [place] [facility] [address] [id number] [place] [address] Aug, [facility] [place] [facility] [address] [id number] [place] [address] Aug, [facility] [place] [facility] [address] [id number] [place] [address] Aug, [facility] [place] [facility] [address] [id number] [place] [address] Aug, [facility] [place] [facility] [address] [id number] [place] [address] Aug, [facility] [place] [facility] [address] [id number] [place] [address] Jul, [facility] [place] [facility] [address] [id number] [place] [address] Jul, [facility] [place] [facility] [address] [id number] [place] [address] 24 Jul, 2014 [facility] [place] [facility] [address] [id number] [place] [address] 24 Jul, 2014 [facility] [place] [facility] [address] [id number] [place] [address] 15 Jul, 2014 [facility] [place] [facility] [address] [id number] [place] [address] 15 Jul, 2014 [facility] [place] [facility] [address] [id number] [place] [address] 27 Jun, 2013 [facility] [place] [facility] [address] [id number] [place] [address] 27 Jun, 2013 [facility] [place] [facility] [address] [id number] [place] [address] 26 Jun, 2013 [facility] [place] [facility] [address] [id number] [place] [address] 26 Jun, 2013 [facility] [place] [facility] [address] [id number] [place] [address] 26 Jun, 2013 [facility] [place] [facility] [address] [id number] [place] [address] 2549 26 Jun, 2013 [facility] [place] [facility] [address] [id number] [place] [address] 2549 16 Jun, 2013 [facility] [place] [facility] [address] [id number] [place] [address] 2544 16 Jun, 2013 [facility] [place] [facility] [address] [id number] [place] [address]- 2549 16 Jun, 2013 [facility] [place] [facility] [address] [id number] [place] [address] 2546 16 Jun, 2013 [facility] [place] [facility] [address] [id number] [place] [address]- 2541 04 Jun, 2013 [facility] [place] [facility] [address] [id number] [place] [address] 8973 May, [facility] [place] [facility] [address] [id number] [place] [address] 0369 May, [facility] [place] [facility] [address] [id number] [place] [address] 8293 May, [facility] [place] [facility] [address] [id number] [place] [address] 6558 May, [facility] [place] [facility] [address] [id number] [place] [address]- 1674 May, [facility] [place] [facility] [address] [id number] [place] [address]- 3511 May, [facility] [place] [facility] [address] [id number] [place] [address] 3301 May, [facility] [place] [facility] [address] [id number] [place] [address]- 2452 May, [facility] [place] [facility] [address] [id number] [place] [address]- 3086 May, [facility] [place] [facility] [address] [id number] [place] [address]- 8548 May, [facility] [place] [facility] [address] [id number] [place] [address]- 4130 Apr, [facility] [place] [facility] [address] [id number] [place] [address]- 4431 Apr, [facility] [place] [facility] [address] [id number] [place] [address]- 1321 Apr, [facility] [place] [facility] [address] [id number] [place] [address]- 1243 Apr, [facility] [place] [facility] [address] [id number] [place] [address]- 8461 Apr, [facility] [place] [facility] [address] [id number] [place] [address]- 4139 Apr, [facility] [place] [facility] [address] [id number] [address] 17 Apr, 2014 [facility] [place] [facility] [address] [id number] [place] [address]- 2970 15 Apr, 2014 [facility] [place] [facility] [address] [id number] [place] [address]- 2817 15 Apr, 2014 [facility] [place] [facility] [address] [id number] [place] [address]- 3071 Apr, [facility] [place] [facility] [address] [id number] [place] [address]- 0726 Mar, [facility] [place] [facility] [address] [id number] [place] [address]- 0408 Mar, [facility] [place] [facility] [address] [id number] [place] [address]- 1085 Mar, [facility] [place] [facility] [address] [id number] [place] [address]- 4201 24 Mar, 2014 [facility] [place] [facility] [address] [id number] [place] [address]- 0742 Mar, [facility] [place] [facility] [address] [id number] [place] [address]- 1303 18 Mar, 2014 [facility] [place] [facility] [address] [id number] [place] [address]- 3724 18 Mar, 2014 [facility] [place] [facility] [address] [id number] [place] [address]- 3966 16 Mar, 2014 [facility] [place] [facility] [address] [id number] [address] 2820 16 Mar, 2014 [facility] [place] [facility] [address] [id number] [place] [address]- 1818 13 Mar, 2014 [facility] [place] [facility] [address] [id number] [place] [address]- 7563 13 Mar, 2014 [facility] [place] [facility] [address] [id number] [place] [address]- 1702 11 Mar, 2014 [facility] [place] [facility] [address] [id number] [place] [address]- 3725 Mar, [facility] [place] [facility] [address] [id number] [place] [address]- 1634 Mar, [facility] [place] [facility] [address] [id number] [place] [address]- 3457 Mar, [facility] [place] [facility] [address] [id number] [place] [address]- 5790 Mar, [facility] [place] [facility] [address] [id number] [place] [address]- 2253 Mar, [facility] [place] [facility] [address] [id number] [place] [address]- 2722 Mar, [facility] [place] [facility] [address] [id number] [place] [address]- 3695 Mar, [facility] [place] [facility] [address] [id number] [place] [address]- 0940 Mar, [facility] [place] [facility] [address] [id number] [place] [address]- 7685 February, [facility] [place] [facility] [address] [id number] [place] [address]- 7174 February, [facility] [place] [facility] [address] [id number] [place] [address]- 1544 February, [facility] [place] [facility] [address] [id number] [place] [address]- 0812 February, [facility] [place] [facility] [address] [id number] [place] [address] 1967 February, [facility] [place] [facility] [address] [id number] [place] [address]- 1346 February, [facility] [place] [facility] [address] [id number] [place] [address]- 5704 February, [facility] [place] [facility] [address] [id number] [place] [address]- 1998 February, [facility] [address] [id number] [place] [address]- 4435 February, [facility] [place] [facility] [address] [id number] [place] [address]- 5454 February, [facility] [place] [facility] [address] [id number] [place] [address]- 4373 February, [facility] [place] [facility] [address] [id number] [place] [address]- 0006 February, [facility] [place] [facility] [address] [id number] [place] [address]- 9781 February, [facility] [place] [facility] [address] [id number] [place] [address]- 8287 February, [facility] [place] [facility] [address] [id number] [place] [address]- 5331 February, [facility] [place] [facility] [address] [id number] [place] [address]- 1873 February, [facility] [place] [facility] [address] [id number] [place] [address]- 6925 February, [facility] [place] [facility] [address] [id number] [place] [address]- 0129 February, [facility] [place] [facility] [address] [id number] [place] [address]- 5695 February, [facility] [place] [facility] [address] [id number] [place] [address]- 8238 February, [facility] [place] [facility] [address] [id number] [place] [address]- 9520 February, [facility] [place] [facility] [address] [id number] [place] [address]- 4150 Jan, [facility] [place] [facility] [address] [id number] [place] [address]- 8219 Jan, [facility] [place] [facility] [address] [id number] [place] [address]- 9939 18 Jan, 2014 [facility] [place] [facility] [address] [id number] [place] [address]- 8984 18 Jan, 2014 [facility] [place] [facility] [address] [id number] [place] [address]- 4936 18 Jan, 2014 [facility] [place] [facility] [address] [id number] [place] [address]- 1605 18 Jan, 2014 [facility] [place] [facility] [address] [id number] [place] [address]- 9694 10 Jan, 2014 [facility] [place] [facility] [address] [id number] [place] [address]- 8940 10 Jan, 2014 [facility] [place] [facility] [address] [id number] [place] [address]- 1452 21 Dec, 2013 [facility] [place] [facility] [address] [id number] [place] [address]- 8330 20 Dec, 2013 [facility] [place] [facility] [address] [id number] [place] [address]- 7835 20 Dec, 2013 [facility] [place] [facility] [address] [id number] [place] [address]- 6911 19 Dec, 2013 [facility] [place] [facility] [address] [id number] [place] [address]- 9919 19 Dec, 2013 [facility] [place] [facility] [address] [id number] [place] [address]- 2132 15 Dec, 2013 [facility] [place] [facility] [address] [id number] [place] [address]- 5857 15 Dec, 2013 [facility] [place] [facility] [address] [id number] [place] [address]- 5970 11 Dec, 2013 [facility] [place] [facility] [address] [id number] [place] [address]- 9213 10 Dec, 2013 [facility] [place] [facility] [address] [id number] [place] [address]- 6481 Dec, [facility] [place] [facility] [address] [id number] [place] [address]- 2045 Nov, [facility] [place] [facility] [address] [id number] [place] [address] Nov, [facility] [place] [facility] [address] [id number] [place] [address]- 7286 Nov, [facility] [place] [facility] [address] [id number] [place] [address]- 9226 Nov, [facility] [place] [facility] [address] [id number] [place] [address]- 7623 Nov, [facility] [place] [facility] [address] [id number] [place] [address]- 2336 Oct, [facility] [place] [facility] [address] [id number] [place] [address]- 8132 Oct, [facility] [place] [facility] [address] [id number] [place] [address]- 5736 Oct, [facility] [place] [facility] [address] [id number] [place] [address]- 6361 Sep, [facility] [place] [facility] [address] [id number] [place] [address]- 8257 Sep, [facility] [place] [facility] [address] [id number] [place] [address]- 9652 Sep, [facility] [place] [facility] [address] [id number] [place] [address]- 0065 Sep, [facility] [place] [facility] [address] [id number] [place] [address]- 5032 Aug, [facility] [place] [facility] [address] [id number] [place] [address]- 2160 Aug, [facility] [place] [facility] [address] [id number] [place] [address]- 0109 Jul, [facility] [place] [facility] [address] [id number] [place] [address]- 4316 Jul, [facility] [address] [id number] [place] [address]- 2086 Jul, [facility] [place] [facility] [address] [id number] [place] [address]- 5416 Jul, [facility] [place] [facility] [address] [id number] [place] [address]- 0396 Jul, [facility] [place] [facility] [address] [id number] [place] [address]- 4181 Jun, [facility] [place] [facility] [address] [id number] [place] [address]- 3871 25 Jun, 2013 [facility] [place] [facility] [address] [id number] [place] [address]- 3620 19 Jun, 2013 [facility] [address] [id number] [place] [address]- 0264 18 Jun, 2013 [facility] [place] [facility] [address] [id number] [place] [address]- 9049 16 Jun, 2013 [facility] [place] [facility] [address] [id number] [place] [address]- 6871 12 Jun, 2013 [facility] [place] [facility] [address] [id number] [place] [address]- 0655 Jun, [facility] [place] [facility] [address] [id number] [place] [address]- 2723 30 May, 2013 [facility] [place] [facility] [address] [id number] [place] [address]- 5250 May, [facility] [place] [facility] [address] [id number] [place] [address]- 8512 Apr, [facility] [place] [facility] [address] [id number] [place] [address]- 5645 Apr, [facility] [place] [facility] [address] [id number] [place] [address]- 3367 Apr, [facility] [place] [facility] [address] [id number] [place] [address]- 5404 Mar, [facility] [address] [id number] [place] [address]- 0972 Mar, [facility] [place] [facility] [address] [id number] [place] [address]- 5583 February, [facility] [address] [id number] [place] [address]- 7734 February, [facility] [address] [id number] [place] [address]- 8054 February, [facility] [address] [id number] [place] [address]- 4713 February, [facility] [address] [id number] [place] [address]- 6042 Jan, [facility] [address] [id number] [place] [address]- 3912 17 Jan, 2013 [facility] [address] [id number] [place] [address]- 1673 16 Jan, 2013 [facility] [address] [id number] [place] [address]- 6643 29 Dec, [address] [facility] [address] [id number] [place] [address]- 1904 Dec, [facility] [address] [id number] [place] [address]- 5968 Dec, [facility] [place] [facility] [address] [id number] [place] [address]- 9400 08 Dec, 2012 [facility] [place] [facility] [address] [id number] [place] [address]- 3653 Nov, [facility] [place] [facility] [address] [id number] [place] [address]- 3293 13 Nov, 2012 [facility] [place] [facility] [address] [id number] [place] [address]- 1956 Oct, [facility] [place] [facility] [address] [id number] [place] [address]- 5806 Oct, [facility] [place] [facility] [address] [id number] [place] [address]- 2596 Oct, [facility] [place] [facility] [address] [id number] [place] [address]- 7135 Oct, [facility] [place] [facility] [address] [id number] [place] [address]- 4460 Aug, [facility] [place] [facility] [address] [id number] [place] [address]- 1003 Aug, [facility] [place] [facility] [address] [id number] [place] [address]- 2439 Jun, [facility] [place] [facility] [address] [id number] [place] [address]- 8944 May, [facility] [place] [facility] [address] [id number] [place] [address]- 8455 May, [facility] [place] [facility] [address] [id number] [place] [address]- 2568 Apr, [facility] [place] [facility] [address] [id number] [place] [address]- 9016 Apr, [facility] [place] [facility] [address] [id number] [place] [address]- 3292 Apr, [facility] [place] [facility] [address] [id number] [place] [address]- 7884 Mar, [facility] [place] [facility] [address] [id number] [place] [address]- 3106 Mar, [facility] [place] [facility] [address] [id number] [place] [address]- 0724 Mar, [facility] [place] [facility] [address] [id number] [place] [address]- 1756 Mar, [facility] [place] [facility] [address] [id number] [place] [address]- 4520 Mar, [facility] [address] [id number] [place] [address]- 5884 February, [facility] [address] [id number] [place] [address]- 1479 February, [facility] [address] [id number] [place] [address]- [address] February, [facility] [address] [id number] [place] [address]- 7010 February, [facility] [address] [id number] [place] [address]- 6635 February, [facility] [address] [id number] [place] [address]- 5206 February, [facility] [address] [id number] [place] [address]- 1282 February, [facility] [address] [id number] [place] [address]- 3303 Jan, [facility] [address] [id number] [place] [address]- 0936 Jan, [facility] [address] [id number] [place] [address]- 4852 Jan, [facility] [address] [id number] [place] [address]- 3445 13 Jan, [address] [facility] [address] [id number] [place] [address]- 1362 10 Jan, 2012 [facility] [address] [id number] [place] [address]- 8426 04 Jan, [address] [facility] [address] [id number] [place] [address]- 0176 30 Dec, [address] [facility] [address] [id number] [place] [address]- 3132 24 Dec, 2011 [facility] [address] [id number] [place] [address]- 4896 20 Dec, 2011 [facility] [place] [facility] [address] [id number] [place] [address]- 8996 13 Dec, 2011 [facility] [place] [facility] [address] [id number] [place] [address]- 1266 Dec, [facility] [place] [facility] [address] [id number] [place] [address]- 8696 Nov, [facility] [address] [id number] [place] [address]- 0081 Nov, [facility] [place] [facility] [address] [id number] [place] [address]- 2986 25 Nov, 2011 [facility] [place] [facility] [address] [id number] [place] [address]- 4656 14 Nov, 2011 [facility] [place] [facility] [address] [id number] [place] [address]- 5693 Nov, [facility] [place] [facility] [address] [id number] [place] [address]- 9092 Nov, [facility] [place] [facility] [address] [id number] [place] [address]- 6316 Oct, [facility] [place] [facility] [address] [id number] [place] [address]- 1046 Oct, [facility] [place] [facility] [address] [id number] [place] [address]- 7466 Oct, [facility] [place] [facility] [address] [id number] [place] [address]- 6137 Oct, [facility] [place] [facility] [address] [id number] [place] [address]- 6986 Oct, [facility] [place] [facility] [address] [id number] [place] [address]- 2156 Sep, [facility] [place] [facility] [address] [id number] [place] [address]- 1589 21 Sep, 2011 [facility] [address] [id number] [place] [address]- 3832 20 Sep, 2011 [facility] [place] [facility] [address] [id number] [place] [address] 2546 14 Sep, 2011 [facility] [place] [facility] [address] [id number] [place] [address]- 9496 14 Sep, 2011 [facility] [place] [facility] [address] [id number] [place] [address] 2541 13 Sep, 2011 [facility] [place] [facility] [address] [id number] [place] [address]- 5295 12 Sep, 2011 [facility] [place] [facility] [address] [id number] [place] [address]- 6455 09 Sep, 2011 [facility] [place] [facility] [address] [id number] [place] [address]- 6316 05 Sep, 2011 [facility] [place] [facility] [address] [id number] [place] [address]- 1445 30 Aug, 2011 [facility] [place] [facility] [address] [id number] [place] [address]- 0787 30 Aug, 2011 [facility] [place] [facility] [address] [id number] [place] [address] 25 Aug, 2011 [facility] [place] [facility] [address] [id number] [place] [address] Aug, [facility] [place] [facility] [address] [id number] [place] [address] 23 Aug, 2011 [facility] [place] [facility] [address] [id number] [place] [address] 22 Aug, 2011 [facility] [place] [facility] [address] [id number] [place] [address] 16 Aug, 2011 [facility] [place] [facility] [address] [id number] [place] [address] Aug, [facility] [place] [facility] [address] [id number] [place] [address] Aug, [facility] [place] [facility] [address] [id number] [place] [address] Aug, [facility] [place] [facility] [address] [id number] [place] [address] Aug, [facility] [place] [facility] [address] [id number] [place] [address] Aug, [facility] [place] [facility] [address] [id number] [place] [address] Jul, [facility] [place] [facility] [address] [id number] [place] [address] Jul, [facility] [place] [facility] [address] [id number] [place] [address] Jul, [facility] [place] [facility] [address] [id number] [place] [address] Jul, [facility] [place] [facility] [address] [id number] [place] [address] Jul, [facility] [place] [facility] [address] [id number] [place] [address] Jul, [facility] [place] [facility] [address] [id number] [place] [address] Jul, [facility] [place] [facility] [address] [id number] [address] Jul, [facility] [place] [facility] [address] [id number] [place] [address] Jul, [facility] [place] [facility] [address] [id number] [place] [address] Jul, [facility] [place] [facility] [address] [id number], [place] [address] Nov, [facility] [place] [facility] [address] [id number], [place] [address] Aug, [facility] [address] [facility] [id number], [place] [address] Aug, [facility] [address] [id number], [place] [address] Aug, [facility] [address] [facility] [id number][place] [address] Aug, [facility] [address] [facility] [id number], [place] [address] Jul, IMMUNIZATIONS No Known Immunizations SOCIAL HISTORY Never Assessed REASON FOR VISIT Refill request PLAN OF CARE VITAL SIGNS MEDICATIONS Unknown [...]
--- OUTSIDE RECORDS SUMMARY | 2018-03-13 16:06 | XMS REPORT ---
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 951992206 Problem Borderline personality disorder F60.3 Active 15425753 Problem High risk medication use Z79.899 Active 126573380 Problem Schizoaffective disorder, unspecified F25.9 Active 30200327 Problem Paranoid schizophrenia F20.0 Active 63304289 Problem Posttraumatic stress disorder F43.10 Active 51081040 Problem Attention deficit hyperactivity disorder (ADHD), inattentive type, 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 98876707 Problem Posttraumatic stress disorder 309.81 Active 58418748 Problem Obsessive-compulsive disorders 300.3 Active 562667600 Problem Generalized anxiety disorder 300.02 Active 96629172 Problem Attention deficit disorder 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 314.00 Active 85056245 Problem Bipolar disorder, unspecified 296.80 Active 15958913 ALLERGIES Substance Reaction Event Type Date Status Latuda agitation Drug Allergy Jun, Active Penicillamine bronchospasm and rash Drug Allergy Jun, Active Cephalexin visual disturbances Drug Allergy Jun, Active Ceftin visual disturbance Drug Allergy Jun, Active Biaxin bronchospasm Drug Allergy Jun, Active Cymbalta 30 Mg Capsule, Delayed Release(e.c.) nausea Non Drug Allergy Jun Active Brintellix 10 Mg Tablet nausea and vomiting Non Drug Allergy Jun, Active ENCOUNTERS Encounter Location Date Diagnosis [facility] [address] [id number] [address] Jan, [facility] [address] [id number], [place] [address] Jan, Paranoid schizophrenia F20.0 [facility] [address], [place] [address] Jan, Paranoid schizophrenia F20.0 [facility] [address] [id number], [place] [address] Jan, Paranoid schizophrenia F20.0 ; Posttraumatic stress disorder F43.10 ; Attention deficit hyperactivity disorder (ADHD), inattentive type, 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0 [facility] [address], [place] [address] 5595 Oct, Paranoid schizophrenia F20.0 ; Posttraumatic stress disorder F43.10 ; Attention deficit hyperactivity disorder (ADHD), inattentive type, 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 ; Borderline personality disorder F60.3 and Other intermediate ( 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 Z79.899 [facility] [address], [place] [address] Oct, [facility] [address] [id number], [place] [address] 1584 Oct, [facility] [address], [place] [address] Sep, [facility] [address], [place] [address] Sep, Paranoid schizophrenia F20.0 ; Posttraumatic stress disorder F43.10 ; Attention deficit hyperactivity disorder (ADHD), inattentive type, 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 and Borderline personality disorder F60.3 [facility] [address], [place] [address] 25[address] Sep, Paranoid schizophrenia F20.0 [facility] [address], [place] [address] Aug, Paranoid schizophrenia F20.0 ; Posttraumatic stress disorder F43.10 ; Attention deficit hyperactivity disorder (ADHD), inattentive type, 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 and Borderline personality disorder F60.3 [facility] [address], [place] [address] 4[address] Aug, Paranoid schizophrenia F20.0 ; Posttraumatic stress disorder F43.10 ; Attention deficit hyperactivity disorder (ADHD), inattentive type, 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 and Borderline personality disorder F60.3 [facility] [address], [place] [address] Aug, [facility] [address], [place] [address] 1087 Jul, Paranoid schizophrenia F20.0 ; Posttraumatic stress disorder F43.10 ; Attention deficit hyperactivity disorder (ADHD), inattentive type, 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 and Borderline personality disorder F60.3 [facility] [address], [place] [address] Jul, Paranoid schizophrenia F20.0 [facility] [address], [place] [address] 77[address] Jul, Paranoid schizophrenia F20.0 ; Posttraumatic stress disorder F43.10 ; Attention deficit hyperactivity disorder (ADHD), inattentive type, 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 and Borderline personality disorder F60.3 [facility] [address] [address] Jun, Paranoid schizophrenia F20.0 ; Posttraumatic stress disorder F43.10 ; Attention deficit hyperactivity disorder (ADHD), inattentive type, 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 and Borderline personality disorder F60.3 [facility] [address] [id number], [place] [address] May, 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 [facility] [address] [id number], [place] [address] 3310 May, [facility] [id number], [place] [address]- 9939 May, [facility] [id number], [place] [address] 3107 May, Attention deficit hyperactivity disorder (ADHD), inattentive type, 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 [facility] [address], [place] [address]- 0288 May, [facility] [id number], [place] [address] 0511 May, Attention deficit hyperactivity disorder (ADHD), inattentive type, 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 [facility] [id number], [place] [address] 6760 May, Paranoid schizophrenia F20.0 ; Posttraumatic stress disorder F43.10 ; Attention deficit hyperactivity disorder (ADHD), inattentive type, 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 and 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 [facility] [id number], [place] [address]44 Apr, Paranoid schizophrenia F20.0 [facility] [id number], [place] [address] 8800 Apr, Paranoid schizophrenia F20.0 ; Posttraumatic stress disorder F43.10 and Attention deficit hyperactivity disorder (ADHD), inattentive type, 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 [facility] [id number], [place] [address] 5869 February, [facility] [id number], [place] [address]- 5570 February, Paranoid schizophrenia F20.0 ; Posttraumatic stress disorder F43.10 and Attention deficit hyperactivity disorder (ADHD), inattentive type, 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 [facility] [address], [place] [address] February, Paranoid schizophrenia F20.0 ; Posttraumatic stress disorder F43.10 and Attention deficit hyperactivity disorder (ADHD), inattentive type, 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 [facility] [address], [place] [address] 9[address] Jan, Paranoid schizophrenia F20.0 ; Posttraumatic stress disorder F43.10 and Attention deficit hyperactivity disorder (ADHD), inattentive type, 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 [facility] [address] [id number] [address] Dec, Dental examination Z01.20 [facility] [address] [id number] [place] [address] [id number] Nov, Dental examination Z01.20 [facility] [address] [id number] [place] [address] [id number] Nov, Dental examination Z01.20 [facility] [address] [address] Nov, Dental caries K02.9 [facility] [address], [place] [address] 8[address] Nov, High risk medication use Z79.899 [facility] [address], [place] [address] 4807 Nov, Paranoid schizophrenia F20.0 ; Posttraumatic stress disorder F43.10 ; Attention deficit hyperactivity disorder (ADHD), inattentive type, 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 and Borderline personality disorder in adult F60.3 [facility] [address] [id number] [address] Oct, Dental caries K02.9 [facility] [address], [place] [address] Sep, Paranoid schizophrenia F20.0 ; Posttraumatic stress disorder F43.10 and Attention deficit hyperactivity disorder (ADHD), inattentive type, 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 [facility] [id number] [place] [address]- 8[address] Aug, Paranoid schizophrenia F20.0 ; Posttraumatic stress disorder F43.10 and Attention deficit hyperactivity disorder (ADHD), inattentive type, 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 [facility] [id number] [place] [address]15 Aug, Strep throat J02.0 and Cough R05 [facility] [id number] [place] [address] 7[address]- 3462 Aug, [facility] [id number] [place] [address]201- 1028 Jul, Paranoid schizophrenia F20.0 ; Posttraumatic stress disorder F43.10 and Attention deficit hyperactivity disorder (ADHD), inattentive type, 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 [facility] [id number] [place] [address] 38[address]- 4818 Jul, [facility] [id number] [place] [address] 67[address]- 5711 Jun, Paranoid schizophrenia F20.0 ; Posttraumatic stress disorder F43.10 and Attention deficit hyperactivity disorder (ADHD), inattentive type, 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 [facility] [id number] [place] [address] [id number] Jun, Dental examination Z01.20 [facility] [id number] [place] [address] 19542- 3181 Jun, [facility] [id number] [place] [address] 93220- 8621 May, Paranoid schizophrenia F20.0 [facility] [id number] [place] [address]40- 9431 May, Paranoid schizophrenia F20.0 ; Posttraumatic stress disorder F43.10 and Attention deficit hyperactivity disorder (ADHD), inattentive type, 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 [facility] [address] [id number] [address] [address] May, [facility] [address] [id number], [place] [address]- 5186 May, Paranoid schizophrenia F20.0 [facility] [address] [id number], [place] [address]- 2859 May, [facility] [address] [id number] [place] [address] 91072- 3551 May, Paranoid schizophrenia F20.0 [facility] [address] [id number], [place] [address]- 5979 May, Schizoaffective disorder, unspecified F25.9 [facility] [address] [id number], [place] [address]- 4866 May, Schizoaffective disorder, unspecified F25.9 [facility] [address] [id number], [place] [address]- 0024 May, [facility] [address] [id number], [place] [address]- 1632 May, Paranoid schizophrenia F20.0 [facility] [id number], [place] [address]- 3436 May, Paranoid schizophrenia F20.0 ; Posttraumatic stress disorder F43.10 and Attention deficit hyperactivity disorder (ADHD), inattentive type, 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 [facility] [address] [id number], [place] [address]- 1356 Mar, [facility] [address] [id number], [place] [address]- 7163 Mar, Paranoid schizophrenia F20.0 ; Posttraumatic stress disorder F43.10 and Attention deficit hyperactivity disorder (ADHD), inattentive type, 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 [facility] [address] [id number], [place] [address]- 3261 Mar, Paranoid schizophrenia F20.0 [facility] [place] [address] [id number] [place] [address] [id number]- 2500 Mar, Paranoid schizophrenia F20.0 ; Attention deficit hyperactivity disorder (ADHD), inattentive type, 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 and Posttraumatic stress disorder F43.10 [facility] [address] [id number], [place] [address]- 7044 Mar, [facility] [address] [id number] [place] [address] 84447- 7526 Mar, Paranoid schizophrenia F20.0 ; Posttraumatic stress disorder F43.10 and Attention deficit hyperactivity disorder (ADHD), inattentive type, 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 [facility] [id number] [place] [address] 31308- 4833 February, [facility] [address] [id number], [place] [address]- 9605 February, [facility] [address] [id number] [place] [address] 75197- 7039 February, [facility] [id number], [place] [address]- 4439 February, [facility] [id number], [place] [address]- 0859 Jan, Paranoid schizophrenia F20.0 [facility] [address] [id number] [address] Jan, Dental examination Z01.20 [facility] [address] [id number] [place] [address] [id number] Jan, Dental caries K02.9 [facility] [address] [id number] [place] [address] [id number] Jan, Dental examination Z01.20 [facility] [address] [id number] [place] [address] [id number] 30 Dec, 2015 Encounter for dental examination Z01.20 [facility] [address] [id number] [address]16 30 Dec, 2015 Paranoid schizophrenia F20.0 [facility] [address] [id number] [id number] Dec, Dental examination Z01.20 [facility] [address], [place] [address]- 5806 07 Dec, 2015 [facility] [id number], [place] [address]- 2780 Dec, Paranoid schizophrenia F20.0 ; Posttraumatic stress disorder F43.10 and Attention deficit hyperactivity disorder (ADHD), inattentive type, 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 [facility] [address], [place] [address]- 1706 Nov, Schizoaffective disorder, unspecified F25.9 [facility] [id number], [place] [address]- 1600 Oct, Paranoid schizophrenia F20.0 [facility] [id number], [place] [address]- 3286 Oct, [facility] [id number], [place] [address]- 0696 Sep, Paranoid schizophrenia F20.0 ; Posttraumatic stress disorder F43.10 and Attention deficit hyperactivity disorder (ADHD), inattentive type, 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 [facility] [address] [id number], [place] [address]- 5266 Sep, [facility] [id number], [place] [address]- 2186 Sep, Paranoid schizophrenia F20.0 ; Posttraumatic stress disorder F43.10 and Attention deficit hyperactivity disorder (ADHD), inattentive type, 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 [facility] [id number], [place] [address]- 3339 Aug, Paranoid schizophrenia F20.0 [facility] [address], [place] [address]- 9359 Aug, [facility] [id number] [place] [address] 88474- 6573 Aug, Posttraumatic stress disorder F43.10 ; Paranoid schizophrenia F20.0 and Attention deficit hyperactivity disorder (ADHD), inattentive type, 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 [facility] [id number] [place] [address] 18481- 5973 Jul, Bipolar disorder, unspecified F31.9 [facility] [id number] [place] [address] 87695- 0934 Jul, [facility] [id number] [place] [address] 68739- 5107 Jun, [facility] [id number] [place] [address] 82603- 7259 Jun, Schizoaffective disorder, chronic 295.72 ; Posttraumatic stress disorder 309.81 and Attention deficit disorder 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 314.00 [facility] [id number] [place] [address] 29509- 3411 May, [facility] [address] [place] [address] 86730- 5842 May, [facility] [address] [place] [address] 25255- 7701 May, Schizoaffective disorder, chronic 295.72 ; Posttraumatic stress disorder 309.81 ; Attention deficit disorder 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 314.00 and Bipolar disorder, unspecified 296.80 [facility] [address] [place] [address] 69984- 8190 Apr, Schizoaffective disorder, chronic 295.72 [facility] [address] [place] [address] 15114- 5005 Apr, [facility] [id number] [place] [address] 14750- 3641 Apr, Schizoaffective disorder, chronic 295.72 ; Posttraumatic stress disorder 309.81 and Attention deficit disorder 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 314.00 [facility] [address] [place] [address] 20712- 0942 Mar, Disorganized schizophrenia, 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 [facility] [id number] [place] [address] 44056- 4857 Mar, [facility] [id number] [place] [address] 02588- 4352 Mar, [facility] [id number] [place] [address] 13350- 9262 Mar, [facility] [id number] [place] [address] 16903- 7272 Mar, [facility] [id number] [place] [address] 49923- 8427 February, Schizoaffective disorder, chronic 295.72 [facility] [id number] [place] [address] 30604- 0484 February, [facility] [id number] [place] [address] 69695- 6242 February, Attention deficit disorder 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 314.00 ; Posttraumatic stress disorder 309.81 and Schizoaffective disorder, chronic 295.72 [facility] [address] [place] [address] 09360- 6366 Jan, [facility] [id number] [place] [address] 02688- 7642 Jan, [facility] [id number] [place] [address] 03985- 1382 Jan, [facility] [id number] [place] [address] 63513- 0557 Dec, [facility] [id number] [place] [address] 41104- 7849 Dec, [facility] [place] [facility] [address] [id number] [place] [address]- 7821 Dec, [facility] [place] [facility] [address] [id number] [place] [address]- 3527 Dec, [facility] [place] [facility] [address] [facility] [id number] [place] [address]- 7511 Dec, [facility] [place] [facility] [address] [id number] [place] [address]- 4139 Dec, [facility] [place] [facility] [address] [id number] [place] [address]- 7805 Dec, [facility] [place] [facility] [address] [facility] [id number] [place] [address]- 9119 Dec, [facility] [place] [facility] [address] [id number] [place] [address]- 5520 Nov, [facility] [place] [facility] [address] [id number] [place] [address]- 8828 Nov, [facility] [place] [facility] [address] [id number] [place] [address]- 8219 Nov, 2014 [facility] [place] [facility] [address] [facility] [id number] [place] [address]- 0209 Nov, 2014 [facility] [place] [facility] [address] [facility] [id number] [place] [address]- 9623 Nov, 2014 [facility] [place] [facility] [address] [id number], [place] [address]- 2608 Nov, 2014 [facility] [place] [facility] [address] [facility] [id number] [place] [address]- 3363 Nov, 2014 [facility] [place] [facility] [address] [facility] [id number], [place] [address]- 4556 Nov, 2014 [facility] [place] [facility] [address] [facility] [id number], [place] [address]- 8440 03 Nov, 2014 [facility] [place] [facility] [address] [id number] [place] [address]- 7841 Nov, [facility] [place] [facility] [address] [id number] [place] [address]- 0493 Oct, [facility] [place] [facility] [address] [id number] [place] [address]- 3241 Oct, [facility] [place] [facility] [address] [id number] [place] [address]- 0801 Oct, [facility] [place] [facility] [address] [id number] [place] [address]- 9836 Oct, [facility] [place] [facility] [address] [id number] [place] [address]- 7860 Oct, [facility] [place] [facility] [address] [id number] [place] [address]- 3058 Oct, [facility] [place] [facility] [address] [id number] [place] [address]- 1492 Oct, [facility] [place] [facility] [address] [id number] [place] [address]- 0208 Sep, [facility] [place] [facility] [address] [id number] [place] [address]- 7891 17 Sep, 2014 [facility] [place] [facility] [address] [id number] [place] [address]- 6482 15 Sep, 2014 [facility] [place] [facility] [address] [id number] [place] [address]- 0819 15 Sep, 2014 [facility] [place] [facility] [address] [id number] [place] [address]- 1295 Aug, [facility] [place] [facility] [address] [id number] [place] [address]- 6670 20 Aug, 2014 [facility] [place] [facility] [address] [id number] [place] [address]- 5517 14 Aug, 2014 [facility] [place] [facility] [address] [id number] [place] [address]- 7694 Aug, [facility] [place] [facility] [address] [id number] [place] [address]- 0522 Aug, [facility] [place] [facility] [address] [id number] [place] [address]- 0703 Aug, [facility] [place] [facility] [address] [id number] [place] [address]- 1050 Jul, [facility] [place] [facility] [address] [id number] [place] [address]- 6805 Jul, [facility] [place] [facility] [address] [id number] [place] [address]- 7054 Jul, [facility] [place] [facility] [address] [id number] [place] [address]- 9342 24 Jul, 2014 [facility] [place] [facility] [address] [id number] [place] [address]- 6733 Jul, [facility] [place] [facility] [address] [id number] [place] [address] 15 Jul, 2014 [facility] [place] [facility] [address] [id number] [place] [address] 27 Jun, 2014 [facility] [place] [facility] [address] [id number] [place] [address] 27 Jun, 2014 [facility] [place] [facility] [address] [id number] [place] [address] 26 Jun, 2013 [facility] [place] [facility] [address] [id number] [place] [address] 26 Jun, 2013 [facility] [place] [facility] [address] [id number] [place] [address] 26 Sep, 2013 [facility] [place] [facility] [address] [id number] [place] [address] 26 Sep, 2013 [facility] [place] [facility] [address] [id number] [place] [address] 16 Sep, 2013 [facility] [place] [facility] [address] [id number] [place] [address] 16 Jun, 2013 [facility] [place] [facility] [address] [id number] [place] [address] Jun, [facility] [place] [facility] [address] [id number] [place] [address] Jun, [facility] [place] [facility] [address] [id number] [place] [address] Jun, [facility] [place] [facility] [address] [id number] [place] [address] May, [facility] [place] [facility] [address] [id number] [place] [address] May, [facility] [place] [facility] [address] [id number] [place] [address] May, [facility] [place] [facility] [address] [id number] [place] [address] May, [facility] [address] [id number] [place] [address] May, [facility] [place] [facility] [address] [id number] [place] [address] 8[address] May, [facility] [place] [facility] [address] [id number] [place] [address] 1044 May, [facility] [place] [facility] [address] [id number] [place] [address] 4188 May, [facility] [place] [facility] [address] [id number] [place] [address] 3531 May, [facility] [place] [facility] [address] [id number] [place] [address] 4431 May, [facility] [place] [facility] [address] [id number] [place] [address]- 4376 Apr, [facility] [place] [facility] [address] [id number] [place] [address]- 5997 Apr, [facility] [place] [facility] [address] [id number] [place] [address]- 6512 Apr, [facility] [place] [facility] [address] [id number] [place] [address]- 7199 Apr, [facility] [place] [facility] [address] [id number] [place] [address]- 3774 Apr, [facility] [place] [facility] [address] [id number] [place] [address]- 3197 Apr, [facility] [place] [facility] [address] [id number] [place] [address]- 5910 Apr, [facility] [place] [facility] [address] [id number] [place] [address]- 6182 Apr, [facility] [place] [facility] [address] [id number] [place] [address]- 7250 Apr, [facility] [place] [facility] [address] [id number] [place] [address]- 7825 Apr, [facility] [place] [facility] [address] [id number] [place] [address] 9172 Mar, [facility] [place] [facility] [address] [id number] [place] [address]- 0092 Mar, [facility] [place] [facility] [address] [id number] [place] [address]- 2000 Mar, [facility] [place] [facility] [address] [id number] [place] [address]- 8785 Mar, [facility] [place] [facility] [address] [id number] [place] [address]- 2902 Mar, [facility] [place] [facility] [address] [id number] [place] [address]- 3118 Mar, [facility] [place] [facility] [address] [id number] [place] [address]- 0464 Mar, [facility] [place] [facility] [address] [id number] [place] [address]- 6298 16 Mar, 2014 [facility] [place] [facility] [address] [id number] [place] [address]- 1545 16 Mar, 2014 [facility] [place] [facility] [address] [id number] [place] [address]- 9791 Mar, [facility] [place] [facility] [address] [id number] [place] [address]- 4899 Mar, [facility] [place] [facility] [address] [id number] [place] [address]- 4084 Mar, [facility] [place] [facility] [address] [id number] [place] [address]- 7549 Mar, [facility] [place] [facility] [address] [id number] [place] [address]- 6434 Mar, [facility] [place] [facility] [address] [id number] [place] [address]- 6989 Mar, [facility] [place] [facility] [address] [id number] [place] [address]- 6328 Mar, [facility] [place] [facility] [address] [id number] [place] [address]- 7460 Mar, [facility] [place] [facility] [address] [id number] [place] [address]- 7286 Mar, [facility] [place] [facility] [address] [id number] [place] [address]- 0737 Mar, [facility] [place] [facility] [address] [id number] [place] [address]- 0867 Mar, [facility] [place] [facility] [address] [id number] [place] [address]- 7855 February, [facility] [place] [facility] [address] [id number] [place] [address]- 6463 February, [facility] [place] [facility] [address] [id number] [place] [address]- 3206 February, [facility] [place] [facility] [address] [id number] [place] [address]- 3733 February, [facility] [place] [facility] [address] [id number] [place] [address]- 6301 February, [facility] [place] [facility] [address] [id number] [place] [address]- 9938 February, [facility] [place] [facility] [address] [id number] [place] [address]- 0788 February, [facility] [place] [facility] [address] [id number] [place] [address]- 7802 February, [facility] [place] [facility] [address] [id number] [place] [address]- 7350 February, [facility] [place] [facility] [address] [id number] [place] [address]- 5460 February, [facility] [place] [facility] [address] [id number] [place] [address]- 3208 February, [facility] [place] [facility] [address] [id number] [place] [address]- 5564 February, [facility] [place] [facility] [address] [id number] [place] [address]- 5388 February, [facility] [place] [facility] [address] [id number] [place] [address]- 4362 February, [facility] [place] [facility] [address] [id number] [place] [address]- 7876 February, [facility] [place] [facility] [address] [id number] [place] [address]- 7688 February, [facility] [place] [facility] [address] [id number] [place] [address]- 4338 February, [facility] [place] [facility] [address] [id number] [place] [address] February, [facility] [place] [facility] [address] [id number] [place] [address]- 7478 February, [facility] [place] [facility] [address] [id number] [place] [address]- 9770 February, [facility] [place] [facility] [address] [id number] [place] [address]- 5478 February, [facility] [place] [facility] [address] [id number] [place] [address] Jan, [facility] [place] [facility] [address] [id number] [place] [address]- 1282 Jan, [facility] [place] [facility] [address] [id number] [place] [address]- 9633 Jan, [facility] [place] [facility] [address] [id number] [place] [address]- 9497 Jan, [facility] [place] [facility] [address] [id number] [place] [address]- 6085 Jan, [facility] [place] [facility] [address] [id number] [place] [address]- 1140 Jan, [facility] [place] [facility] [address] [id number] [place] [address]- 5587 Jan, [facility] [place] [facility] [address] [id number] [place] [address]- 2711 Jan, [facility] [place] [facility] [address] [id number] [place] [address]- 7764 Dec, [facility] [place] [facility] [address] [id number], [place] [address]- 0371 Dec, [facility] [place] [facility] [address] [id number] [place] [address]- 4458 Dec, [facility] [place] [facility] [address] [id number] [place] [address]- 2002 Dec, [facility] [place] [facility] [address] [id number] [place] [address]- 6375 Dec, [facility] [place] [facility] [address] [id number] [place] [address]- 6164 15 Dec, 2013 [facility] [place] [facility] [address] [id number] [place] [address]- 7627 15 Dec, 2013 [facility] [place] [facility] [address] [id number] [place] [address]- 2488 11 Dec, 2013 [facility] [place] [facility] [address] [id number] [place] [address]- 6455 10 Dec, 2013 [facility] [place] [facility] [address] [id number] [place] [address]- 1504 10 Dec, 2013 [facility] [place] [facility] [address] [id number] [place] [address]- 9585 18 Nov, 2013 [facility] [place] [facility] [address] [id number] [place] [address]- 0064 17 Nov, 2013 [facility] [place] [facility] [address] [id number] [place] [address]- 6122 17 Nov, 2013 [facility] [place] [facility] [address] [id number] [place] [address]- 2814 05 Nov, 2013 [facility] [place] [facility] [address] [id number] [place] [address]- 2944 05 Nov, 2013 [facility] [place] [facility] [address] [facility] [id number] [place] [address]- 5485 Oct, [facility] [place] [facility] [address] [id number] [place] [address]- 1348 Oct, [facility] [place] [facility] [address] [id number] [place] [address]- 5299 Oct, [facility] [place] [facility] [address] [id number] [place] [address]- 8649 Sep, [facility] [place] [facility] [address] [id number] [place] [address]- 2546 Sep, [facility] [place] [facility] [address] [id number] [place] [address]- 2023 Sep, [facility] [place] [facility] [address] [id number] [place] [address]- 7930 Sep, [facility] [place] [facility] [address] [id number] [place] [address]- 6235 Aug, [facility] [place] [facility] [address] [id number] [place] [address]- 0398 Aug, [facility] [place] [facility] [address] [id number] [place] [address]- 1221 Jul, [facility] [place] [facility] [address] [id number] [place] [address]- 2993 Jul, [facility] [place] [facility] [address] [id number] [place] [address]- 7656 Jul, [facility] [place] [facility] [address] [id number] [place] [address]- 1411 Jul, [facility] [place] [facility] [address] [id number], [place] [address]- 3812 Jul, [facility] [place] [facility] [address] [id number] [place] [address]- 6138 25 Jun, 2013 [facility] [place] [facility] [address] [id number], [place] [address]- 2996 25 Jun, 2013 [facility] [place] [facility] [address] [id number], [place] [address]- 8846 19 Jun, 2013 [facility] [place] [facility] [address] [id number], [place] [address]- 1339 18 Sep2012 [facility] [place] [facility] [address] [id number] [place] [address]- 9860 16 Sep2012 [facility] [place] [facility] [address] [id number], [place] [address]- 4267 12 Sep2012 [facility] [place] [facility] [address] [id number] [place] [address]- 2782 11 Jun, 2013 [facility] [place] [facility] [address] [id number] [place] [address]- 6252 May, [facility] [address] [id number] [place] [address]- 3635 May, [facility] [address] [id number] [place] [address]- 6237 Apr, [facility] [address] [id number] [place] [address]- 3374 Apr, [facility] [place] [facility] [address] [id number] [place] [address]- 9945 Apr, [facility] [address] [id number] [place] [address]- 7222 Mar, [facility] [address] [id number] [place] [address]- 3792 Mar, [facility] [address] [id number] [place] [address]- 2304 February, [facility] [address] [id number] [place] [address]- 7471 February, [facility] [address] [id number] [place] [address]- 9291 February, [facility] [address] [id number] [place] [address]- 2583 February, [facility] [address] [id number] [place] [address]- 3969 Jan, [facility] [place] [facility] [address] [id number] [place] [address]- 5709 Jan, [facility] [place] [facility] [address] [id number] [place] [address]- 8092 Jan, [facility] [place] [facility] [address] [id number] [place] [address]- 0470 Dec, [facility] [place] [facility] [address] [id number] [place] [address]- 9818 Dec, [facility] [place] [facility] [address] [id number] [place] [address]- 3227 Dec, [facility] [address] [id number] [place] [address]- 2206 Dec, [facility] [place] [facility] [address] [id number] [place] [address]- 0842 Nov, [facility] [place] [facility] [address] [id number] [place] [address]- 3062 Nov, [facility] [address] [id number] [place] [address]- 0013 Oct, [facility] [address] [id number] [place] [address]- 1195 Oct, [facility] [address] [id number] [place] [address]- 2178 Oct, [facility] [address] [id number] [place] [address]- 6633 Oct, [facility] [address] [id number] [place] [address]- 5380 Aug, [facility] [address] [id number] [place] [address]- 7604 Aug, [facility] [address] [id number] [place] [address]- 1617 Jun, [facility] [address] [id number] [place] [address]- 0955 May, [facility] [place] [facility] [address] [id number] [place] [address]- 1597 May, [facility] [place] [facility] [address] [id number] [place] [address]- 9486 Apr, [facility] [place] [facility] [address] [id number] [place] [address]- 8206 Apr, [facility] [place] [facility] [address] [id number] [place] [address]- 1223 05 Apr, 2012 [facility] [place] [facility] [address] [id number] [place] [address]- 7587 Mar, [facility] [place] [facility] [address] [id number] [place] [address]- 4600 Mar, [facility] [place] [facility] [address] [id number] [place] [address]- 4620 Mar, [facility] [place] [facility] [address] [id number] [place] [address]- 3638 Mar, [facility] [place] [facility] [address] [id number] [place] [address]- 6396 Mar, [facility] [place] [facility] [address] [id number] [place] [address]- 1873 February, [facility] [place] [facility] [address] [id number] [place] [address]- 4386 February, [facility] [place] [facility] [address] [id number] [place] [address]- 0013 February, [facility] [place] [facility] [address] [id number] [place] [address]- 7398 February, [facility] [place] [facility] [address] [id number] [place] [address]- 9654 February, [facility] [place] [facility] [address] [id number] [place] [address]- 4805 February, [facility] [place] [facility] [address] [id number] [place] [address]- 2326 February, [facility] [place] [facility] [address] [id number] [place] [address]- 1843 Jan, [facility] [place] [facility] [address] [id number] [place] [address]- 0945 18 Jan, 2012 [facility] [place] [facility] [address] [id number] [place] [address]- 7264 Jan, [facility] [place] [facility] [address] [id number] [place] [address]- 8095 13 Jan, 2012 [facility] [address] [id number] [place] [address]- 9822 10 Jan, 2012 [facility] [place] [facility] [address] [id number] [place] [address]- 6696 04 Jan, 2012 [facility] [address] [id number] [place] [address]- 7560 30 Dec, 2011 [facility] [address] [id number] [place] [address]- 8797 24 Dec, 2011 [facility] [address] [id number] [place] [address]- 7135 20 Dec, 2011 [facility] [address] [facility] [id number] [place] [address]- 2023 13 Dec, 2011 [facility] [address] [facility] [id number] [place] [address]- 7371 06 Dec, 2011 [facility] [address] [id number] [place] [address]- 7965 28 Nov, 2011 [facility] [id number] [place] [address]- 4687 27 Nov, 2011 [facility] [address] [id number] [place] [address]- 1866 25 Nov, 2011 [facility] [address] [facility] [id number] [place] [address]- 5081 14 Nov, 2011 [facility] [address] [id number] [place] [address]- 7099 10 Nov, 2011 [facility] [place] [facility] [address] [id number] [place] [address]- 4446 Nov, [facility] [place] [facility] [address] [id number] [place] [address]- 9436 26 Oct, 2011 [facility] [place] [facility] [address] [id number] [place] [address]- 0836 Oct, [facility] [place] [facility] [address] [id number] [place] [address]- 8617 Oct, [facility] [place] [facility] [address] [id number] [place] [address]- 9546 Oct, [facility] [place] [facility] [address] [id number] [place] [address]- 5250 Oct, [facility] [place] [facility] [address] [id number] [place] [address]- 4010 Sep, [facility] [place] [facility] [address] [id number] [place] [address]- 8844 Sep, [facility] [place] [facility] [address] [id number] [place] [address]- 1743 Sep, [facility] [place] [facility] [address] [id number] [place] [address]- 9633 14 Sep, 2011 [facility] [place] [facility] [address] [id number] [place] [address]- 3651 14 Sep, 2011 [facility] [place] [facility] [address] [id number] [place] [address]- 2919 Sep, [facility] [place] [facility] [address] [id number] [place] [address]- 8860 Sep, [facility] [place] [facility] [address] [id number] [place] [address]- 3099 Sep, [facility] [place] [facility] [address] [id number] [place] [address]- 9292 Sep, [facility] [place] [facility] [address] [id number] [place] [address]- 6754 Aug, [facility] [place] [facility] [address] [id number] [place] [address]- 7149 Aug, [facility] [place] [facility] [address] [id number] [place] [address]- 3709 Aug, [facility] [place] [facility] [address] [id number] [place] [address]- 6422 Aug, [facility] [place] [facility] [address] [id number] [place] [address]- 8703 Aug, [facility] [place] [facility] [address] [id number] [place] [address]- 4737 Aug, [facility] [place] [facility] [address] [id number] [place] [address]- 6493 Aug, [facility] [place] [facility] [address] [id number] [place] [address]- 2806 Aug, [facility] [place] [facility] [address] [id number] [place] [address]- 0396 Aug, [facility] [place] [facility] [address] [id number] [place] [address]- 0959 Aug, [facility] [place] [facility] [address] [id number] [place] [address]- 6828 Aug, [facility] [place] [facility] [address] [id number] [place] [address]- 5840 Aug, [facility] [place] [facility] [address] [id number] [place] [address]- 7943 Jul, [facility] [place] [facility] [address] [id number] [place] [address] Jul, [facility] [place] [facility] [address] [id number] [place] [address] Jul, 2011 [facility] [place] [facility] [address] [id number] [place] [address] Jul, [facility] [place] [facility] [address] [id number] [place] [address] Jul, [facility] [place] [facility] [address] [id number] [place] [address] Jul, [facility] [place] [facility] [address] [id number] [place] [address] Jul, [facility] [id number] [address] Jul, [facility] [id number] [place] [address] Jul, [facility] [id number] [place] [address] Jul, [facility] [id number] [place] [address] Nov, [facility] [id number] [place] [address] Aug, [facility] [id number] [place] [address] Aug, [facility] [id number] [place] [address] Aug, [facility] [id number] [place] [address] Aug, [facility] [address] [id number] [address] Jul, IMMUNIZATIONS No Known Immunizations SOCIAL HISTORY Never Assessed REASON FOR VISIT f/u Mila PLAN OF CARE Activity Details Follow Up 4 Weeks Reason: f/u VITAL SIGNS Height 65.75 in 2017-06-24 Weight 197.4 lbs 2017-06-24 Heart Rate 64 bpm 2017-06-24 Respiratory Rate 20 2017-06-24 BMI 32.10 kg/m2 2017-06-24 Blood pressure systolic 102 mmHg 2017-06-24 Blood pressure diastolic 66 mmHg 2017-06-24 MEDICATIONS Medication Instructions Dosage Frequency Start Date End Date Duration Status Metformin HCl 1000 MG Orally 2 times a day 1 tablet 12h Active Invega 6 MG Orally Once a day 2 tablets 24h Nov, Active Intuniv 1 MG Orally Once a day at bedtime 1 tablet Jun, 30 day(s) Active Cyproheptadine HCl 4 MG Orally once a day 3 tablets 24h Jan, Active Citalopram Hydrobromide 40 mg Orally Once a day 1 tablet with the 20 mg tablet 24h February, Active Ativan 1 MG Orally Once a day as needed 1 tablet Jun, 30 days Active Hydrocodone-Acetaminophen 10-325 mg 1 Tablet by Oral route every 8 hours PRN pain Jul, Active NovoLog Mix 70/30 (70-30) 100 UNIT/ML Subcutaneous 3 times a day 27 units 8h Active Topamax 100 MG Orally Twice a day 1.5 tablet 12h Aug, Active Insulin Detemir 100 unit/mL (3 mL) 67 units by Subcutaneous route 1 time per day qHS February, Active Seroquel 50 mg Orally at bedtime as needed for sleep 1- 2 tablets Nov Active Citalopram Hydrobromide 20 mg Orally Once a day 1 tablet daily with 40 mg tablet 24h February, Active RESULTS No Results PROCEDURES Procedure Date Ordered Result Body Site [facility] VISIT ESTABLISHED PATIENT Jun 24, 2017 INSTRUCTIONS MEDICATIONS ADMINISTERED No Known Medications MEDICAL (GENERAL) HISTORY Type Description Date Medical History diabetes Medical History thyroid Surgical History appendix Surgical History gallbladder Surgical History eyes Surgical History hip Surgical History MRI on back and pelvis 06/08 Hospitalization History surgeries Hospitalization History [facility] Suicide attempt by hanging 06/14/2016
--- OUTSIDE RECORDS SUMMARY | 2018-03-13 16:09 | XMS REPORT ---
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 774710065 Problem Borderline personality disorder F60.3 Active 95283189 Problem High risk medication use Z79.899 Active 018920763 Problem Schizoaffective disorder, unspecified F25.9 Active 14475717 Problem Paranoid schizophrenia F20.0 Active 76005744 Problem Posttraumatic stress disorder F43.10 Active 10133817 Problem Attention deficit hyperactivity disorder (ADHD), inattentive type, 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 70829300 Problem Posttraumatic stress disorder 309.81 Active 79499040 Problem Obsessive-compulsive disorders 300.3 Active 780501661 Problem Generalized anxiety disorder 300.02 Active 58581656 Problem Attention deficit disorder 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 314.00 Active 65357768 Problem Bipolar disorder, unspecified 296.80 Active 89014929 ALLERGIES No Information ENCOUNTERS Encounter Location Date Diagnosis [facility] [id number], [place] [address] Jan, [facility] [id number], [place] [address] Jan, Paranoid schizophrenia F20.0 [facility] [id number] [place] [address]- 8967 Jan, Paranoid schizophrenia F20.0 ; Posttraumatic stress disorder F43.10 ; Attention deficit hyperactivity disorder (ADHD), inattentive type, 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 and Borderline personality disorder F60.3 [facility] [address], [place] [address] Dec, [facility] [address], [place] [address] Nov, Paranoid schizophrenia F20.0 ; Posttraumatic stress disorder F43.10 ; Attention deficit hyperactivity disorder (ADHD), inattentive type, 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 and Borderline personality disorder F60.3 [facility] [address], [place] [address] Nov, [facility] [id number] [place] [address]- 1043 Oct, Paranoid schizophrenia F20.0 [facility] [address], [place] [address] 89[address] Oct, Paranoid schizophrenia F20.0 ; Posttraumatic stress disorder F43.10 ; Attention deficit hyperactivity disorder (ADHD), inattentive type, 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 ; Borderline personality disorder F60.3 and Other halfway ( 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 Z79.899 [facility] [address], [place] [address] Oct, [facility] [address], [place] [address] 7[address] Oct, [facility] [address], [place] [address] 269[address] Sep, [facility] [address], [place] [address] 30[address] Sep, Paranoid schizophrenia F20.0 ; Posttraumatic stress disorder F43.10 ; Attention deficit hyperactivity disorder (ADHD), inattentive type, 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 and Borderline personality disorder F60.3 [facility] [address], [place] [address] 5[address] Sep, Paranoid schizophrenia F20.0 [facility] [address], [place] [address] 9985 Aug, Paranoid schizophrenia F20.0 ; Posttraumatic stress disorder F43.10 ; Attention deficit hyperactivity disorder (ADHD), inattentive type, 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 and Borderline personality disorder F60.3 [facility] [address], [place] [address] 0868 Aug, Paranoid schizophrenia F20.0 ; Posttraumatic stress disorder F43.10 ; Attention deficit hyperactivity disorder (ADHD), inattentive type, 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 and Borderline personality disorder F60.3 [facility] [address], [place] [address] 74[address] Aug, [facility] [id number] [place] [address] 75[address]- 9372 Jul, Paranoid schizophrenia F20.0 ; Posttraumatic stress disorder F43.10 ; Attention deficit hyperactivity disorder (ADHD), inattentive type, 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 and Borderline personality disorder F60.3 [facility] [address], [place] [address]- 0668 Jul, Paranoid schizophrenia F20.0 [facility] [address], [place] [address]- 4050 Jul, Paranoid schizophrenia F20.0 ; Posttraumatic stress disorder F43.10 ; Attention deficit hyperactivity disorder (ADHD), inattentive type, 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 and Borderline personality disorder F60.3 [facility] [id number], [place] [address] 5458 Jun, Paranoid schizophrenia F20.0 ; Posttraumatic stress disorder F43.10 ; Attention deficit hyperactivity disorder (ADHD), inattentive type, 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 and Borderline personality disorder F60.3 [facility] [address], [place] [address] 8218 May, Other halfway (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 Z79.899 [facility] [address], [place] [address]- 1466 May, [facility] [address], [place] [address]- 1258 May, [facility] [address], [place] [address]- 3092 May, Attention deficit hyperactivity disorder (ADHD), inattentive type, 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 [facility] [address], [place] [address]- 5122 May, [facility] [address], [place] [address]- 1372 May, Attention deficit hyperactivity disorder (ADHD), inattentive type, 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 [facility] [address], [place] [address]- 8230 May, Paranoid schizophrenia F20.0 ; Posttraumatic stress disorder F43.10 ; Attention deficit hyperactivity disorder (ADHD), inattentive type, 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 and Other halfway (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 Z79.899 [facility] [address], [place] [address]- 8031 Apr, Paranoid schizophrenia F20.0 [facility] [address], [place] [address]- 9348 Apr, Paranoid schizophrenia F20.0 ; Posttraumatic stress disorder F43.10 and Attention deficit hyperactivity disorder (ADHD), inattentive type, 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 [facility] [address], [place] [address] February, [facility] [id number], [place] [address]- 7360 February, Paranoid schizophrenia F20.0 ; Posttraumatic stress disorder F43.10 and Attention deficit hyperactivity disorder (ADHD), inattentive type, 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 [facility] [id number], [place] [address]- 9899 February, Paranoid schizophrenia F20.0 ; Posttraumatic stress disorder F43.10 and Attention deficit hyperactivity disorder (ADHD), inattentive type, 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 [facility] [address] [address] [address] Jan, Paranoid schizophrenia F20.0 ; Posttraumatic stress disorder F43.10 and Attention deficit hyperactivity disorder (ADHD), inattentive type, 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 [facility] [address] [id number] [id number] Dec, Dental examination Z01.20 [facility] [id number] [place] [address] [id number] Nov, Dental examination Z01.20 [facility] [id number] [place] [address] [id number] Nov, Dental examination Z01.20 [facility] [id number] [place] [address] [id number] Nov, Dental caries K02.9 [facility] [id number] [place] [address]- 6189 Nov, High risk medication use Z79.899 [facility] [id number] [place] [address]97- 4847 Nov, Paranoid schizophrenia F20.0 ; Posttraumatic stress disorder F43.10 ; Attention deficit hyperactivity disorder (ADHD), inattentive type, 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 and Borderline personality disorder in adult F60.3 [facility] [address] [id number] Oct, Dental caries K02.9 [facility] [id number] [place] [address] 98561- 6387 Sep, Paranoid schizophrenia F20.0 ; Posttraumatic stress disorder F43.10 and Attention deficit hyperactivity disorder (ADHD), inattentive type, 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 [facility] [address] [address] Aug, Paranoid schizophrenia F20.0 ; Posttraumatic stress disorder F43.10 and Attention deficit hyperactivity disorder (ADHD), inattentive type, 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 [facility] [address], [place] [address] Aug, Strep throat J02.0 and Cough R05 [facility] [id number], [place] [address] Aug, [facility] [id number] [place] [address]86- 9896 Jul, Paranoid schizophrenia F20.0 ; Posttraumatic stress disorder F43.10 and Attention deficit hyperactivity disorder (ADHD), inattentive type, 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 [facility] [address], [place] [address]- 8058 Jul, [facility] [id number] [place] [address] 09377- 9784 Jun, Paranoid schizophrenia F20.0 ; Posttraumatic stress disorder F43.10 and Attention deficit hyperactivity disorder (ADHD), inattentive type, 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 [facility] [address] [id number] Jun, Dental examination Z01.20 [facility] [id number] [place] [address] 58152- 7422 Jun, [facility] [id number] [place] [address] 60587- 8638 May, Paranoid schizophrenia F20.0 [facility] [address], [place] [address]- 4917 May, Paranoid schizophrenia F20.0 ; Posttraumatic stress disorder F43.10 and Attention deficit hyperactivity disorder (ADHD), inattentive type, 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 [facility] [address], [place] [address]- 7829 May, [facility] [address], [place] [address]- 4911 May, Paranoid schizophrenia F20.0 [facility] [address], [place] [address]- 2327 May, [facility] [address] [facility] [id number], [place] [address]- 4912 May, Paranoid schizophrenia F20.0 [facility] [address] [facility] [id number], [place] [address]- 5584 May, Schizoaffective disorder, unspecified F25.9 [facility] [address] [facility] [id number], [place] [address]- 0073 May, Schizoaffective disorder, unspecified F25.9 [facility] [address] [facility] [id number], [place] [address]- 0559 May, [facility] [address] [facility] [id number], [place] [address]- 5254 May, Paranoid schizophrenia F20.0 [facility] [id number], [place] [address] May, Paranoid schizophrenia F20.0 ; Posttraumatic stress disorder F43.10 and Attention deficit hyperactivity disorder (ADHD), inattentive type, 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 [facility] [address] [facility] [id number], [place] [address]- 6184 Mar, [facility] [id number], [place] [address]- 3066 Mar, Paranoid schizophrenia F20.0 ; Posttraumatic stress disorder F43.10 and Attention deficit hyperactivity disorder (ADHD), inattentive type, 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 [facility] [id number], [place] [address]- 3191 Mar, Paranoid schizophrenia F20.0 [facility] [address] [facility] [id number], [place] [address]- 3878 Mar, Paranoid schizophrenia F20.0 ; Attention deficit hyperactivity disorder (ADHD), inattentive type, 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 and Posttraumatic stress disorder F43.10 [facility] [address] [facility] [id number], [place] [address]- 5133 Mar, [facility] [id number], [place] [address]- 9961 Mar, Paranoid schizophrenia F20.0 ; Posttraumatic stress disorder F43.10 and Attention deficit hyperactivity disorder (ADHD), inattentive type, 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 [facility] [address] [id number] [address] February, [facility] [id number] [place] [address]35- 1060 February, [facility] [address] [facility] [id number] [place] [address] 91789- 9440 February, [facility] [id number] [place] [address] 77844- 6135 February, [facility] [id number] [place] [address] 90187- 5069 Jan, Paranoid schizophrenia F20.0 [facility] [id number] [place] [address] [id number] Jan, Dental examination Z01.20 [facility] [id number] [place] [address] [id number] Jan, Dental caries K02.9 [facility] [id number] [place] [address] [id number] Jan, Dental examination Z01.20 [facility] [address] [id number] [place] [address] [id number] Dec, Encounter for dental examination Z01.20 [facility] [id number] [place] [address] 19741420- 8370 Dec, Paranoid schizophrenia F20.0 [facility] [address] [id number] [place] [address] [id number] Dec, Dental examination Z01.20 [facility] [address] [id number] [address]677 Dec, [facility] [id number], [place] [address]- 0722 Dec, Paranoid schizophrenia F20.0 ; Posttraumatic stress disorder F43.10 and Attention deficit hyperactivity disorder (ADHD), inattentive type, 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 [facility] [address], [place] [address]- 5246 Nov, Schizoaffective disorder, unspecified F25.9 [facility] [address], [place] [address]- 6482 Oct, Paranoid schizophrenia F20.0 [facility] [address], [place] [address]- 4757 Oct, [facility] [address], [place] [address]- 4490 Sep, Paranoid schizophrenia F20.0 ; Posttraumatic stress disorder F43.10 and Attention deficit hyperactivity disorder (ADHD), inattentive type, 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 [facility] [address], [place] [address]- 1584 Sep, [facility] [address], [place] [address]- 5703 Sep, Paranoid schizophrenia F20.0 ; Posttraumatic stress disorder F43.10 and Attention deficit hyperactivity disorder (ADHD), inattentive type, 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 [facility] [id number], [place] [address]- 3158 Aug, Paranoid schizophrenia F20.0 [facility] [id number], [place] [address]- 7951 Aug, [facility] [id number], [place] [address]- 0631 Aug, Posttraumatic stress disorder F43.10 ; Paranoid schizophrenia F20.0 and Attention deficit hyperactivity disorder (ADHD), inattentive type, 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 [facility] [id number], [place] [address]- 4029 Jul, Bipolar disorder, unspecified F31.9 [facility] [address], [place] [address]- 4212 Jul, [facility] [address], [place] [address]- 4268 Jun, [facility] [address], [place] [address]- 6094 Jun, Schizoaffective disorder, chronic 295.72 ; Posttraumatic stress disorder 309.81 and Attention deficit disorder 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 314.00 [facility] [address], [place] [address]- 9510 May, [facility] [id number] [place] [address] 78860- 5164 May, [facility] [address], [place] [address]- 9455 May, Schizoaffective disorder, chronic 295.72 ; Posttraumatic stress disorder 309.81 ; Attention deficit disorder 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 314.00 and Bipolar disorder, unspecified 296.80 [facility] [address], [place] [address]- 9041 Apr, Schizoaffective disorder, chronic 295.72 [facility] [address], [place] [address]- 9324 Apr, [facility] [address], [place] [address]- 2222 Apr, Schizoaffective disorder, chronic 295.72 ; Posttraumatic stress disorder 309.81 and Attention deficit disorder 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 314.00 [facility] [address], [place] [address]- 2257 Mar, Disorganized schizophrenia, 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 [facility] [address], [place] [address]- 7235 Mar, [facility] [address], [place] [address]- 4703 Mar, [facility] [address], [place] [address]- 3487 Mar, [facility] [id number] [place] [address] 34527- 3136 Mar, [facility] [address], [place] [address]- 7976 February, Schizoaffective disorder, chronic 295.72 [facility] [id number] [place] [address] 13171- 6726 February, [facility] [id number] [place] [address] 32705- 9036 February, Attention deficit disorder 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 314.00 ; Posttraumatic stress disorder 309.81 and Schizoaffective disorder, chronic 295.72 [facility] [id number] [place] [address] 98918- 1216 Jan, [facility] [address], [place] [address]- 1946 Jan, [facility] [id number], [place] [address]- 8469 Jan, [facility] [address], [place] [address]- 6476 Dec, [facility] [address], [place] [address]- 1275 Dec, [facility] [address], [place] [address]- 4736 Dec, [facility] [address], [place] [address]- 7252 Dec, [facility] [id number], [place] [address]- 3976 Dec, [facility] [address], [place] [address]- 0736 Dec, [facility] [place] [facility] [address] [id number] [place] [address]- 0272 Dec, [facility] [place] [facility] [address] [id number] [place] [address]- 7236 Dec, [facility] [place] [facility] [address] [id number] [place] [address]- 9605 Nov, 2014 [facility] [place] [facility] [address] [id number] [place] [address]- 0416 Nov, [facility] [place] [facility] [address] [id number] [place] [address]- 2497 Nov, 2014 [facility] [place] [facility] [address] [id number] [place] [address]- 8964 Nov, 2014 [facility] [place] [facility] [address] [facility] [id number] [place] [address]- 1103 Nov, [facility] [place] [facility] [address] [id number] [place] [address]- 2228 Nov, 2014 [facility] [place] [facility] [address] [id number] [place] [address]- 6730 Nov, [facility] [place] [facility] [address] [facility] [id number] [place] [address]- 0584 Nov, [facility] [place] [facility] [address] [id number] [place] [address]- 4371 Nov, [facility] [place] [facility] [address] [id number] [place] [address]- 2727 Nov, [facility] [place] [facility] [address] [id number] [place] [address]- 4208 Oct, [facility] [place] [facility] [address] [id number] [place] [address]- 5949 Oct, [facility] [place] [facility] [address] [facility] [id number] [place] [address]- 8658 Oct, [facility] [place] [facility] [address] [id number] [place] [address]- 9720 15 Oct, 2014 [facility] [place] [facility] [address] [id number] [place] [address]- 7477 15 Oct, 2014 [facility] [place] [facility] [address] [id number] [place] [address]- 8329 13 Oct, 2014 [facility] [place] [facility] [address] [id number] [place] [address]- 0434 13 Oct, 2014 [facility] [place] [facility] [address] [id number] [place] [address]- 5748 17 Sep, 2014 [facility] [place] [facility] [address] [id number] [place] [address]- 6444 17 Sep, 2014 [facility] [place] [facility] [address] [id number] [place] [address]- 0099 15 Sep, 2014 [facility] [place] [facility] [address] [id number] [place] [address]- 5461 15 Sep, 2014 [facility] [place] [facility] [address] [id number] [place] [address]- 2019 20 Aug, 2014 [facility] [place] [facility] [address] [id number] [place] [address]- 6978 20 Aug, 2014 [facility] [place] [facility] [address] [id number] [place] [address]- 8858 14 Aug, 2014 [facility] [place] [facility] [address] [id number] [place] [address]- 3961 14 Aug, 2014 [facility] [place] [facility] [address] [id number] [place] [address]- 9342 14 Aug, 2014 [facility] [place] [facility] [address] [id number] [place] [address]- 2386 Aug, [facility] [place] [facility] [address] [id number] [place] [address]- 9985 Jul, [facility] [place] [facility] [address] [id number] [place] [address] Jul, [facility] [place] [facility] [address] [id number] [place] [address] 24 Jul, 2014 [facility] [place] [facility] [address] [id number] [place] [address] 24 Jul, 2014 [facility] [place] [facility] [address] [id number] [place] [address] 15 Jul, 2014 [facility] [place] [facility] [address] [id number] [place] [address] 15 Jul, 2014 [facility] [place] [facility] [address] [id number] [place] [address] 27 Sep, 2013 [facility] [place] [facility] [address] [id number] [place] [address] 27 Jun, 2013 [facility] [place] [facility] [address] [id number] [place] [address] 26 Jun, 2013 [facility] [place] [facility] [address] [id number] [place] [address] 26 Jun, 2013 [facility] [place] [facility] [address] [id number] [place] [address] 26 Jun, 2013 [facility] [place] [facility] [address] [id number] [place] [address] 26 Jun, 2013 [facility] [place] [facility] [address] [id number] [place] [address] 16 Sep, 2013 [facility] [place] [facility] [address] [id number] [place] [address] 16 Sep, 2013 [facility] [place] [facility] [address] [id number] [place] [address] 16 Sep, 2013 [facility] [place] [facility] [address] [id number] [place] [address] 16 Jun, 2013 [facility] [place] [facility] [address] [id number] [place] [address] 04 Jun, 2013 [facility] [place] [facility] [address] [id number] [place] [address] May, [facility] [place] [facility] [address] [id number] [place] [address] May, [facility] [place] [facility] [address] [id number] [place] [address] May, [facility] [place] [facility] [address] [id number] [place] [address] May, [facility] [place] [facility] [address] [id number] [place] [address]- 7442 May, [facility] [place] [facility] [address] [id number] [place] [address]290 May, [facility] [place] [facility] [address] [id number] [place] [address] 6173 May, [facility] [place] [facility] [address] [id number] [place] [address] 2296 May, [facility] [place] [facility] [address] [id number] [place] [address] 1632 May, [facility] [place] [facility] [address] [id number] [place] [address] 5462 May, [facility] [place] [facility] [address] [id number] [place] [address] 4160 Apr, [facility] [place] [facility] [address] [id number] [place] [address]- 7426 Apr, [facility] [place] [facility] [address] [id number] [place] [address] 2717 Apr, [facility] [place] [facility] [address] [id number] [place] [address]- 0322 Apr, [facility] [place] [facility] [address] [id number] [place] [address]- 9042 Apr, [facility] [place] [facility] [address] [id number] [place] [address] 9737 Apr, [facility] [place] [facility] [address] [id number] [place] [address]- 0090 17 Apr, 2014 [facility] [place] [facility] [address] [id number] [place] [address] 1949 15 Apr, 2014 [facility] [place] [facility] [address] [id number] [place] [address]- 3797 15 Apr, 2014 [facility] [place] [facility] [address] [id number] [place] [address]- 9686 Apr, [facility] [place] [facility] [address] [id number] [place] [address]- 2076 Mar, [facility] [place] [facility] [address] [id number] [place] [address]- 8575 Mar, [facility] [place] [facility] [address] [id number] [place] [address]- 6206 Mar, [facility] [place] [facility] [address] [id number] [place] [address]- 4462 24 Mar, 2014 [facility] [place] [facility] [address] [id number] [place] [address]- 5393 Mar, [facility] [place] [facility] [address] [id number] [place] [address]- 0232 Mar, [facility] [place] [facility] [address] [id number] [place] [address]- 2843 18 Mar, 2014 [facility] [place] [facility] [address] [id number] [place] [address]- 0122 16 Mar, 2014 [facility] [place] [facility] [address] [id number] [place] [address]- 0474 16 Mar, 2014 [facility] [place] [facility] [address] [id number] [place] [address]- 6205 13 Mar, 2014 [facility] [place] [facility] [address] [id number] [place] [address]- 5442 13 Mar, 2014 [facility] [place] [facility] [address] [id number] [place] [address]- 7495 Mar, [facility] [place] [facility] [address] [id number] [place] [address]- 5937 Mar, [facility] [place] [facility] [address] [id number] [place] [address]- 7995 Mar, [facility] [place] [facility] [address] [id number] [place] [address]- 5161 Mar, [facility] [place] [facility] [address] [id number] [place] [address]- 2617 Mar, [facility] [place] [facility] [address] [id number] [place] [address]- 1315 Mar, [facility] [place] [facility] [address] [id number] [place] [address]- 5964 Mar, [facility] [place] [facility] [address] [id number] [place] [address]- 9805 Mar, [facility] [place] [facility] [address] [id number] [place] [address]- 2187 Mar, [facility] [place] [facility] [address] [id number] [place] [address]- 0193 February, [facility] [place] [facility] [address] [id number] [place] [address]- 1669 February, [facility] [place] [facility] [address] [id number] [place] [address]- 1624 February, [facility] [place] [facility] [address] [id number] [place] [address]- 9108 February, [facility] [place] [facility] [address] [id number] [place] [address]- 1354 February, [facility] [place] [facility] [address] [id number] [place] [address]- 0193 February, [facility] [place] [facility] [address] [id number] [place] [address]- 8365 February, [facility] [place] [facility] [address] [id number] [place] [address]- 9728 February, [facility] [address] [id number] [place] [address]- 2435 February, [facility] [place] [facility] [address] [id number] [place] [address]- 4230 February, [facility] [place] [facility] [address] [id number] [place] [address]- 7353 February, [facility] [place] [facility] [address] [id number] [place] [address]- 1995 February, [facility] [place] [facility] [address] [id number] [place] [address]- 1030 February, [facility] [place] [facility] [address] [id number] [place] [address]- 7365 February, [facility] [place] [facility] [address] [id number] [place] [address]- 0665 February, [facility] [place] [facility] [address] [id number] [place] [address]- 1133 February, [facility] [place] [facility] [address] [id number] [place] [address]- 1075 February, [facility] [place] [facility] [address] [id number] [place] [address]- 6942 February, [facility] [place] [facility] [address] [id number] [place] [address]- 3853 February, [facility] [place] [facility] [address] [id number] [place] [address]- 7461 February, [facility] [place] [facility] [address] [id number] [place] [address]- 4964 February, [facility] [place] [facility] [address] [id number] [place] [address]- 4073 Jan, [facility] [place] [facility] [address] [id number] [place] [address]- 6547 Jan, [facility] [place] [facility] [address] [id number] [place] [address]- 8050 18 Jan, 2014 [facility] [place] [facility] [address] [id number] [place] [address]- 0027 18 Jan, 2014 [facility] [place] [facility] [address] [id number] [place] [address]- 2996 18 Jan, 2014 [facility] [place] [facility] [address] [id number] [place] [address]- 2222 18 Jan, 2014 [facility] [place] [facility] [address] [id number] [place] [address]- 7266 10 Jan, 2014 [facility] [place] [facility] [address] [id number] [place] [address]- 2185 10 Jan, 2014 [facility] [place] [facility] [address] [id number] [place] [address]- 1185 21 Dec, 2013 [facility] [place] [facility] [address] [id number] [place] [address]- 5338 20 Dec, 2013 [facility] [place] [facility] [address] [id number] [place] [address]- 3170 20 Dec, 2013 [facility] [place] [facility] [address] [id number] [place] [address]- 8956 19 Dec, 2013 [facility] [place] [facility] [address] [id number] [place] [address]- 2866 19 Dec, 2013 [facility] [place] [facility] [address] [id number] [place] [address]- 0593 15 Dec, 2013 [facility] [place] [facility] [address] [id number] [place] [address]- 0374 15 Dec, 2013 [facility] [place] [facility] [address] [id number] [place] [address]- 2306 11 Dec, 2013 [facility] [place] [facility] [address] [id number] [place] [address]- 8246 10 Dec, 2013 [facility] [place] [facility] [address] [id number] [place] [address]- 7567 Dec, [facility] [place] [facility] [address] [id number] [place] [address]- 7264 Nov, [facility] [place] [facility] [address] [id number] [place] [address]- 0976 Nov, [facility] [place] [facility] [address] [id number] [place] [address]- 3296 Nov, [facility] [place] [facility] [address] [id number] [place] [address]- 1850 Nov, [facility] [place] [facility] [address] [id number] [place] [address]- 8866 Nov, [facility] [place] [facility] [address] [id number] [place] [address]- 1508 Oct, [facility] [place] [facility] [address] [id number] [place] [address]- 9941 Oct, [facility] [place] [facility] [address] [id number] [place] [address]- 5518 Oct, [facility] [place] [facility] [address] [id number] [place] [address]- 3348 Sep, [facility] [place] [facility] [address] [id number] [place] [address]- 7207 Sep, [facility] [place] [facility] [address] [id number] [place] [address]- 5779 Sep, [facility] [place] [facility] [address] [id number] [place] [address]- 5690 Sep, [facility] [place] [facility] [address] [id number] [place] [address]- 3588 Aug, [facility] [place] [facility] [address] [id number] [place] [address]- 1198 Aug, [facility] [place] [facility] [address] [id number] [place] [address]- 9032 Jul, [facility] [place] [facility] [address] [id number] [place] [address]- 7804 Jul, [facility] [address] [id number] [place] [address]- 6542 Jul, [facility] [place] [facility] [address] [id number] [place] [address]- 2546 Jul, [facility] [address] [id number] [place] [address]- 6372 Jul, [facility] [address] [id number] [place] [address]- 6736 Jun, [facility] [address] [id number] [place] [address]- 8737 25 Jun, 2013 [facility] [address] [id number] [place] [address]- 1989 19 Jun, 2013 [facility] [address] [id number] [place] [address]- 5619 18 Jun, 2013 [facility] [address] [id number] [place] [address]- 2838 16 Jun, 2013 [facility] [address] [id number] [place] [address]- 4103 12 Jun, 2013 [facility] [address] [id number] [place] [address]- 2422 Jun, [facility] [place] [facility] [address] [id number] [place] [address] 2544 30 May, 2013 [facility] [place] [facility] [address] [id number] [place] [address]- 2544 May, [facility] [place] [facility] [address] [id number] [place] [address]- 9194 Apr, [facility] [place] [facility] [address] [id number] [place] [address] 2544 Apr, [facility] [place] [facility] [address] [id number] [place] [address]- 0292 Apr, [facility] [address] [id number] [place] [address]- 0661 Mar, [facility] [place] [facility] [address] [id number] [place] [address]- 7064 Mar, [facility] [address] [id number] [place] [address]- 7576 February, [facility] [place] [facility] [address] [id number] [place] [address]- 3582 February, [facility] [address] [id number] [place] [address]- 4931 February, [facility] [place] [facility] [address] [id number] [place] [address]- 9254 February, [facility] [address] [id number] [place] [address]- 5717 Jan, [facility] [address] [id number] [place] [address]- 6192 Jan, [facility] [place] [facility] [address] [id number] [place] [address]- 0948 Jan, [facility] [address] [id number] [place] [address]- 3488 Dec, [facility] [place] [facility] [address] [id number] [place] [address]- 5032 Dec, [facility] [place] [facility] [address] [id number] [place] [address]- 1147 Dec, [facility] [place] [facility] [address] [id number] [place] [address]- 4285 Dec, [facility] [place] [facility] [address] [id number] [place] [address]- 6489 Nov, [facility] [place] [facility] [address] [id number] [place] [address]- 3798 Nov, [facility] [place] [facility] [address] [id number] [place] [address]- 4793 Oct, [facility] [place] [facility] [address] [id number] [place] [address]- 5577 Oct, [facility] [place] [facility] [address] [id number] [place] [address]- 0684 Oct, [facility] [place] [facility] [address] [id number] [place] [address]- 0189 Oct, [facility] [place] [facility] [address] [id number] [place] [address]- 0653 Aug, [facility] [place] [facility] [address] [id number] [place] [address]- 0579 Aug, [facility] [place] [facility] [address] [id number] [place] [address]- 2742 Jun, [facility] [place] [facility] [address] [id number] [place] [address]- 6879 May, [facility] [place] [facility] [address] [id number] [place] [address]- 2761 May, [facility] [place] [facility] [address] [id number] [place] [address]- 0727 Apr, [facility] [place] [facility] [address] [id number] [place] [address]- 5764 Apr, [facility] [place] [facility] [address] [id number] [place] [address]- 2335 Apr, [facility] [place] [facility] [address] [id number] [place] [address]- 5075 Mar, [facility] [place] [facility] [address] [id number] [place] [address]- 6416 Mar, [facility] [place] [facility] [address] [id number] [place] [address]- 1926 Mar, [facility] [place] [facility] [address] [id number] [place] [address]- 3274 Mar, [facility] [place] [facility] [address] [id number] [place] [address]- 4383 Mar, [facility] [address] [id number] [place] [address]- 9026 February, [facility] [address] [id number] [place] [address]- 1280 February, [facility] [address] [id number] [place] [address]- 3904 February, [facility] [address] [id number] [place] [address]- 4376 February, [facility] [address] [id number] [place] [address]- 8418 February, [facility] [address] [id number] [place] [address]- 4738 February, [facility] [address] [id number] [place] [address]- 8663 February, [facility] [address] [id number] [place] [address]- 2714 Jan, [facility] [address] [id number] [place] [address]- 8416 Jan, [facility] [place] [facility] [address] [id number] [place] [address]- 6342 Jan, [facility] [place] [facility] [address] [id number] [place] [address]- 4183 Jan, [facility] [place] [facility] [address] [id number] [place] [address]- 4798 Jan, [facility] [place] [facility] [address] [id number] [place] [address]- 5806 Jan, [facility] [place] [facility] [address] [id number] [place] [address]- 0093 Dec, [facility] [place] [facility] [address] [id number] [place] [address]- 7568 24 Dec, 2011 [facility] [address] [id number] [place] [address]- 9214 20 Dec, 2011 [facility] [place] [facility] [address] [id number] [place] [address]- 7776 13 Dec, 2011 [facility] [address] [facility] [id number] [place] [address]- 7069 Dec, [facility] [place] [facility] [address] [id number] [place] [address]- 6004 Nov, [facility] [place] [facility] [address] [id number] [place] [address]- 9102 Nov, [facility] [place] [facility] [address] [id number] [place] [address]- 5117 Nov, [facility] [address] [facility] [id number] [place] [address]- 0299 14 Nov, 2011 [facility] [place] [facility] [address] [id number] [place] [address]- 1533 Nov, [facility] [place] [facility] [address] [facility] [id number] [place] [address]- 0864 Nov, [facility] [place] [facility] [address] [facility] [id number] [place] [address]- 9958 Oct, [facility] [address] [id number] [place] [address]- 3983 Oct, [facility] [place] [facility] [address] [id number] [place] [address]- 3487 Oct, [facility] [place] [facility] [address] [id number] [place] [address]- 4499 Oct, [facility] [place] [facility] [address] [facility] [id number] [place] 8029 Oct, [facility] [place] [facility] [address] [facility] [id number] [place] [address]- 9861 Sep, [facility] [place] [facility] [address] [id number] [place] [address]- 7902 21 Sep, 2011 [facility] [place] [facility] [address] [id number] [place] [address]- 0116 20 Sep, 2011 [facility] [place] [facility] [address] [id number] [place] [address] 2546 14 Sep, 2011 [facility] [place] [facility] [address] [id number] [place] [address] 2546 14 Sep, 2011 [facility] [place] [facility] [address] [id number] [place] [address] 2542 13 Sep, 2011 [facility] [place] [facility] [address] [id number] [place] [address]- 5376 12 Sep, 2011 [facility] [place] [facility] [address] [id number] [place] [address]- 9373 09 Sep, 2011 [facility] [place] [facility] [address] [id number] [place] [address]- 4716 05 Sep, 2011 [facility] [place] [facility] [address] [id number] [place] [address]- 2250 30 Aug, 2011 [facility] [place] [facility] [address] [id number] [place] [address]- 5438 30 Aug, 2011 [facility] [place] [facility] [address] [id number] [place] [address]- 6967 Aug, [facility] [place] [facility] [address] [id number] [place] [address]- 4465 Aug, [facility] [place] [facility] [address] [id number] [place] [address] 2545 Aug, [facility] [place] [facility] [address] [id number] [place] [address]- 1570 22 Aug, 2011 [facility] [place] [facility] [address] [id number] [place] [address]- 2541 16 Aug, 2011 [facility] [place] [facility] [address] [id number] [place] [address]- 7206 Aug, [facility] [place] [facility] [address] [id number] [place] [address]- 7808 Aug, [facility] [place] [facility] [address] [id number] [place] [address]- 6103 Aug, [facility] [place] [facility] [address] [id number] [place] [address]- 9971 Aug, [facility] [place] [facility] [address] [id number] [place] [address]- 0712 Aug, [facility] [place] [facility] [address] [id number] [place] [address]- 3158 Jul, [facility] [place] [facility] [address] [id number] [place] [address] Jul, [facility] [place] [facility] [address] [id number] [place] [address] Jul, [facility] [place] [facility] [address] [id number], [place] [address] Jul, [facility] [place] [facility] [address] [id number] [place] [address] Jul, [facility] [place] [facility] [address] [id number], [place] [address] Jul, [facility] [place] [facility] [address] [id number], [place] [address] Jul, [facility] [place] [facility] [address] [id number], [place] [address] Jul, [facility] [place] [facility] [address] [id number], [place] [address] Jul, [facility] [place] [facility] [address] [id number], [place] [address] Jul, [facility] [place] [facility] [address] [id number], [place] [address] Nov, [facility] [place] [facility] [address] [facility] [id number] [place] [address] Aug, [facility] [address] [facility] [id number], [place] [address] Aug, [facility] [address] [id number], [place] [address] Aug, [facility] [address] [facility] [id number], [place] [address] Aug, [facility] [address] [facility] [id number][place] [address] Jul, IMMUNIZATIONS No Known Immunizations SOCIAL HISTORY Never Assessed REASON FOR VISIT Refill request PLAN OF CARE VITAL SIGNS MEDICATIONS Medication Instructions Dosage Frequency Start Date End Date Duration Status GuanFACINE HCl ER 1 MG Orally Once a day 1 tablet 24h Apr, 30 days Active RESULTS No Results PROCEDURES [...]
--- OUTSIDE RECORDS SUMMARY | 2018-03-13 16:10 | XMS REPORT ---
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 501101223 Problem Borderline personality disorder F60.3 Active 89335315 Problem High risk medication use Z79.899 Active 867763754 Problem Schizoaffective disorder, unspecified F25.9 Active 95405016 Problem Paranoid schizophrenia F20.0 Active 37127608 Problem Posttraumatic stress disorder F43.10 Active 97537254 Problem Attention deficit hyperactivity disorder (ADHD), inattentive type, 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 35033761 Problem Posttraumatic stress disorder 309.81 Active 09737184 Problem Obsessive-compulsive disorders 300.3 Active 662812426 Problem Generalized anxiety disorder 300.02 Active 44070365 Problem Attention deficit disorder 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 314.00 Active 00836751 Problem Bipolar disorder, unspecified 296.80 Active 58644060 ALLERGIES No Information ENCOUNTERS Encounter Location Date Diagnosis [facility] [address] [facility] [id number] [address] Mar, [facility] [address] [facility] [id number], [place] [address] February, Paranoid schizophrenia F20.0 ; Posttraumatic stress disorder F43.10 ; Attention deficit hyperactivity disorder (ADHD), inattentive type, 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 and Borderline personality disorder F60.3 [facility] [address] [facility] [id number], [place] [address] Jan, Paranoid schizophrenia F20.0 ; Posttraumatic stress disorder F43.10 ; Attention deficit hyperactivity disorder (ADHD), inattentive type, 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 and Borderline personality disorder F60.3 [facility] [address], [place] [address] Jan, Paranoid schizophrenia F20.0 [facility] [address] [address] Jan, Paranoid schizophrenia F20.0 [facility] [id number] [place] [address]- 6980 Jan, Paranoid schizophrenia F20.0 ; Posttraumatic stress disorder F43.10 ; Attention deficit hyperactivity disorder (ADHD), inattentive type, 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 and Borderline personality disorder F60.3 [facility] [address] [id number] [address] Dec, [facility] [id number] [place] [address]91- 4731 Nov, Paranoid schizophrenia F20.0 ; Posttraumatic stress disorder F43.10 ; Attention deficit hyperactivity disorder (ADHD), inattentive type, 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 and Borderline personality disorder F60.3 [facility] [address] [address] Nov, [facility] [address] [address] Oct, Paranoid schizophrenia F20.0 [facility] [address] [address] Oct, Paranoid schizophrenia F20.0 ; Posttraumatic stress disorder F43.10 ; Attention deficit hyperactivity disorder (ADHD), inattentive type, 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 ; Borderline personality disorder F60.3 and 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 [facility] [address], [place] [address] Oct, [facility] [address] [id number] [address] 2470 Oct, [facility] [address], [place] [address] 270[address] Sep, [facility] [address], [place] [address] 9[address] Sep, Paranoid schizophrenia F20.0 ; Posttraumatic stress disorder F43.10 ; Attention deficit hyperactivity disorder (ADHD), inattentive type, 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10 ; Attention deficit hyperactivity disorder (ADHD), inattentive type, 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 and Borderline personality disorder F60.3 [facility] [address], [place] [address] 8[address] Aug, [facility] [address], [place] [address] 2[address] Jul, Paranoid schizophrenia F20.0 ; Posttraumatic stress disorder F43.10 ; Attention deficit hyperactivity disorder (ADHD), inattentive type, 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 and Borderline personality disorder F60.3 [facility] [address], [place] [address] 05[address] Jul, Paranoid schizophrenia F20.0 [facility] [address], [place] [address] 72[address] Jul, Paranoid schizophrenia F20.0 ; Posttraumatic stress disorder F43.10 ; Attention deficit hyperactivity disorder (ADHD), inattentive type, 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 and Borderline personality disorder F60.3 [facility] [id number], [place] [address] 30[address] Jun, Paranoid schizophrenia F20.0 ; Posttraumatic stress disorder F43.10 ; Attention deficit hyperactivity disorder (ADHD), inattentive type, 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 and Borderline personality disorder F60.3 [facility] [address], [place] [address] 8950 May, Other alf (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 Z79.899 [facility] [address], [place] [address] 8[address] May, [facility] [id number], [place] [address]- 9682 May, [facility] [address], [place] [address] 0[address] May, Attention deficit hyperactivity disorder (ADHD), inattentive type, 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 [facility] [address], [place] [address]- 3812 May, [facility] [address] [id number], [place] [address] 4530 May, Attention deficit hyperactivity disorder (ADHD), inattentive type, 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 [facility] [address] [id number], [place] [address] 0315 May, Paranoid schizophrenia F20.0 ; Posttraumatic stress disorder F43.10 ; Attention deficit hyperactivity disorder (ADHD), inattentive type, 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 and Other alf (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 Z79.899 [facility] [address] [id number], [place] [address]- 6607 Apr, Paranoid schizophrenia F20.0 [facility] [address] [id number], [place] [address] Apr, Paranoid schizophrenia F20.0 ; Posttraumatic stress disorder F43.10 and Attention deficit hyperactivity disorder (ADHD), inattentive type, 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 [facility] [address], [place] [address] 8[address] February, [facility] [address] [id number], [place] [address]- 0055 February, Paranoid schizophrenia F20.0 ; Posttraumatic stress disorder F43.10 and Attention deficit hyperactivity disorder (ADHD), inattentive type, 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 [facility] [address], [place] [address]- 3779 February, Paranoid schizophrenia F20.0 ; Posttraumatic stress disorder F43.10 and Attention deficit hyperactivity disorder (ADHD), inattentive type, 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 [facility] [address], [place] [address]- 3692 Jan, Paranoid schizophrenia F20.0 ; Posttraumatic stress disorder F43.10 and Attention deficit hyperactivity disorder (ADHD), inattentive type, 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 [facility] [address] [address] Dec, Dental examination Z01.20 [facility] [address] [id number] [id number] Nov, Dental examination Z01.20 [facility] [address] [id number] [address] Nov, Dental examination Z01.20 [facility] [address] [address] Nov, Dental caries K02.9 [facility] [address], [place] [address]- 3056 13 Nov, 2016 High risk medication use Z79.899 [facility] [address], [place] [address]- [address] Nov, Paranoid schizophrenia F20.0 ; Posttraumatic stress disorder F43.10 ; Attention deficit hyperactivity disorder (ADHD), inattentive type, 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 and Borderline personality disorder in adult F60.3 [facility] [address] [address] Oct, Dental caries K02.9 [facility] [id number] [place] [address] 74121- 5259 05 Sep, 2016 Paranoid schizophrenia F20.0 ; Posttraumatic stress disorder F43.10 and Attention deficit hyperactivity disorder (ADHD), inattentive type, 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 [facility] [id number] [place] [address] 43266- 4944 16 Aug, 2016 Paranoid schizophrenia F20.0 ; Posttraumatic stress disorder F43.10 and Attention deficit hyperactivity disorder (ADHD), inattentive type, 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 [facility] [id number] [place] [address]8769 -6203 Aug, Strep throat J02.0 and Cough R05 [facility] [id number] [place] [address] 98774- 3946 Aug, [facility] [id number] [place] [address] 07377- 5617 24 Jul, 2016 Paranoid schizophrenia F20.0 ; Posttraumatic stress disorder F43.10 and Attention deficit hyperactivity disorder (ADHD), inattentive type, 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 [facility] [id number] [place] [address] 61501- 2514 Jul, [facility] [id number] [place] [address] 27471- 1519 28 Jun, 2016 Paranoid schizophrenia F20.0 ; Posttraumatic stress disorder F43.10 and Attention deficit hyperactivity disorder (ADHD), inattentive type, 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 [facility] [id number] [place] [address] [id number] 22 Jun, 2016 Dental examination Z01.20 [facility] [id number] [place] [address] 92219- 8013 12 Jun, 2016 [facility] [id number] [place] [address] 54753- 3465 May, Paranoid schizophrenia F20.0 [facility] [id number] [place] [id number]- 5729 May, Paranoid schizophrenia F20.0 ; Posttraumatic stress disorder F43.10 and Attention deficit hyperactivity disorder (ADHD), inattentive type, 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 [facility] [id number] [place] [address] 20480- 3195 May, [facility] [id number] [place] [address] 84153- 6045 May, Paranoid schizophrenia F20.0 [facility] [id number] [place] [address] 87594- 9029 May, [facility] [id number] [place] [address] 79152- 2187 May, Paranoid schizophrenia F20.0 [facility] [id number] [place] [address] 62528- 0199 May, Schizoaffective disorder, unspecified F25.9 [facility] [id number] [place] [address] 27313- 3049 May, Schizoaffective disorder, unspecified F25.9 [facility] [id number], [place] [address]- 2466 May, [facility] [id number] [place] [address] 77694- 8642 May, Paranoid schizophrenia F20.0 [facility] [id number], [place] [address]- 0657 May, Paranoid schizophrenia F20.0 ; Posttraumatic stress disorder F43.10 and Attention deficit hyperactivity disorder (ADHD), inattentive type, 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 [facility] [address] [id number], [place] [address]- 6379 Mar, [facility] [id number], [place] [address]- 2151 Mar, Paranoid schizophrenia F20.0 ; Posttraumatic stress disorder F43.10 and Attention deficit hyperactivity disorder (ADHD), inattentive type, 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 [facility] [address] [id number], [place] [address]- 7814 Mar, Paranoid schizophrenia F20.0 [facility] [id number] [place] [address] 92955- 9532 Mar, Paranoid schizophrenia F20.0 ; Attention deficit hyperactivity disorder (ADHD), inattentive type, 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 and Posttraumatic stress disorder F43.10 [facility] [id number] [place] [address] 84607- 8023 Mar, [facility] [id number] [place] [address] 95781- 6803 Mar, Paranoid schizophrenia F20.0 ; Posttraumatic stress disorder F43.10 and Attention deficit hyperactivity disorder (ADHD), inattentive type, 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 [facility] [address], [place] [address]- 9008 February, [facility] [id number] [place] [address] 08872- 6838 February, [facility] [address], [place] [address]- 4842 February, [facility] [address], [place] [address]- 2114 February, [facility] [id number] [place] [address] 76627- 5893 Jan, Paranoid schizophrenia F20.0 [facility] [address] [id number] [id number] Jan, Dental examination Z01.20 [facility] [address] [id number] [address] Jan, Dental caries K02.9 [facility] [address] [id number] [address] Jan, Dental examination Z01.20 [facility] [id number] [id number] Dec, Encounter for dental examination Z01.20 [facility] [address] 2105 Dec, Paranoid schizophrenia F20.0 [facility] [address] [id number] [address] Dec, Dental examination Z01.20 [facility] [address], [place] [address]- 2369 Dec, [facility] [address], [place] [address]- 9679 Dec, Paranoid schizophrenia F20.0 ; Posttraumatic stress disorder F43.10 and Attention deficit hyperactivity disorder (ADHD), inattentive type, 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 [facility] [address], [place] [address]- 7948 Nov, Schizoaffective disorder, unspecified F25.9 [facility] [address], [place] [address] Oct, Paranoid schizophrenia F20.0 [facility] [address], [place] [address]- 2735 Oct, [facility] [address], [place] [address]- 1990 Sep, Paranoid schizophrenia F20.0 ; Posttraumatic stress disorder F43.10 and Attention deficit hyperactivity disorder (ADHD), inattentive type, 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 [facility] [address], [place] [address]- 7602 Sep, [facility] [address] [id number], [place] [address]- 8427 Sep, Paranoid schizophrenia F20.0 ; Posttraumatic stress disorder F43.10 and Attention deficit hyperactivity disorder (ADHD), inattentive type, 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 [facility] [address], [place] [address]- 5221 Aug, Paranoid schizophrenia F20.0 [facility] [address], [place] [address]- 1688 Aug, [facility] [id number] [place] [address] 16896- 7640 Aug, Posttraumatic stress disorder F43.10 ; Paranoid schizophrenia F20.0 and Attention deficit hyperactivity disorder (ADHD), inattentive type, 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 [facility] [id number] [place] [address] 86998- 0133 Jul, Bipolar disorder, unspecified F31.9 [facility] [id number] [place] [address] 46413- 6116 Jul, [facility] [id number] [place] [address] 55140- 6060 Jun, [facility] [id number] [place] [address] 54358- 4575 Jun, Schizoaffective disorder, chronic 295.72 ; Posttraumatic stress disorder 309.81 and Attention deficit disorder 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 314.00 [facility] [address], [place] [address]- 6571 May, [facility] [id number] [place] [address] 37419- 3899 May, [facility] [address], [place] [address]- 1859 May, Schizoaffective disorder, chronic 295.72 ; Posttraumatic stress disorder 309.81 ; Attention deficit disorder 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 314.00 and Bipolar disorder, unspecified 296.80 [facility] [address], [place] [address]- 7161 Apr, Schizoaffective disorder, chronic 295.72 [facility] [address], [place] [address]- 0775 Apr, [facility] [address], [place] [address]- 4069 Apr, Schizoaffective disorder, chronic 295.72 ; Posttraumatic stress disorder 309.81 and Attention deficit disorder 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 314.00 [facility] [address], [place] [address]- 8703 Mar, Disorganized schizophrenia, 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 [facility] [address], [place] [address]- 7612 Mar, [facility] [id number], [place] [address]- 8559 Mar, [facility] [address], [place] [address]- 1598 Mar, [facility] [id number], [place] [address]- 2665 Mar, [facility] [address], [place] [address]- 2018 February, Schizoaffective disorder, chronic 295.72 [facility] [address], [place] [address]- 7454 February, [facility] [address] [id number], [place] [address]- 9901 February, Attention deficit disorder 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 314.00 ; Posttraumatic stress disorder 309.81 and Schizoaffective disorder, chronic 295.72 [facility] [address], [place] [address]- 9486 Jan, [facility] [address] 1157 Jan, [facility] [id number], [place] [address]- 2648 Jan, [facility] [id number] [place] [address]- 5397 Dec, [facility] [place] [facility] [address] [id number] [place] [address]- 8707 Dec, [facility] [place] [facility] [address] [id number] [place] [address]- 8168 Dec, [facility] [place] [facility] [address] [id number] [place] [address]- 7405 Dec, [facility] [place] [facility] [address] [id number] [place] [address]- 1859 Dec, [facility] [place] [facility] [address] [id number] [place] [address]- 2203 Dec, [facility] [place] [facility] [address] [facility] [id number] [place] [address]- 5456 Dec, [facility] [place] [facility] [address] [facility] [id number] [place] [address]- 1318 Dec, [facility] [place] [facility] [address] [facility] [id number] [place] [address]- 6048 27 Nov, 2014 [facility] [place] [facility] [address] [facility] [id number] [place] [address]- 5882 Nov, 2014 [facility] [place] [facility] [address] [facility] [id number] [place] [address]- 4352 25 Nov, 2014 [facility] [place] [facility] [address] [facility] [id number] [place] [address]- 6751 25 Nov, 2014 [facility] [place] [facility] [address] [facility] [id number] [place] [address]- 2545 13 Nov, 2014 [facility] [place] [facility] [address] [id number] [place] [address]- 6527 13 Nov, 2014 [facility] [place] [facility] [address] [facility] [id number], [place] [address]- 2545 05 Nov, 2014 [facility] [place] [facility] [address] [facility] [id number], [place] [address]- 9799 Nov, [facility] [place] [facility] [address] [id number] [place] [address]- 0615 Nov, [facility] [place] [facility] [address] [id number] [place] [address]- 6096 Nov, [facility] [place] [facility] [address] [id number] [place] [address]- 7822 Oct, [facility] [place] [facility] [address] [id number] [place] [address]- 8473 Oct, [facility] [place] [facility] [address] [id number] [place] [address]- 5348 Oct, [facility] [place] [facility] [address] [id number] [place] [address] Oct, [facility] [place] [facility] [address] [id number] [place] [address] Oct, [facility] [place] [facility] [address] [id number] [place] [address] Oct, [facility] [place] [facility] [address] [id number] [place] [address] Oct, [facility] [place] [facility] [address] [id number] [place] [address] Sep, [facility] [place] [facility] [address] [id number] [place] [address] Sep, [facility] [place] [facility] [address] [id number] [place] [address] Sep, [facility] [place] [facility] [address] [id number] [place] [address] Sep, [facility] [place] [facility] [address] [id number] [place] [address] Aug, [facility] [place] [facility] [address] [id number] [place] [address] Aug, [facility] [place] [facility] [address] [id number] [place] [address] 14 Aug, 2014 [facility] [place] [facility] [address] [id number] [place] [address] Aug, [facility] [place] [facility] [address] [id number] [place] [address] Aug, [facility] [place] [facility] [address] [id number] [place] [address] Aug, [facility] [place] [facility] [address] [id number] [place] [address] Jul, [facility] [place] [facility] [address] [id number] [place] [address] Jul, [facility] [place] [facility] [address] [id number] [place] [address] Jul, [facility] [place] [facility] [address] [id number] [place] [address] Jul, [facility] [place] [facility] [address] [id number] [place] [address] Jul, [facility] [place] [facility] [address] [id number] [place] [address] 15 Jul, 2014 [facility] [place] [facility] [address] [id number] [place] [address] 27 Jun, 2014 [facility] [place] [facility] [address] [address] [id number] [place] [address] 27 Jun, 2014 [facility] [place] [facility] [address] [id number] [place] [address] 2541 26 Jun, 2014 [facility] [place] [facility] [address] [id number] [place] [address] 8154 26 Jun, 2014 [facility] [place] [facility] [address] [id number] [place] [address] 26 Jun, 2014 [facility] [place] [facility] [address] [id number] [place] [address]- 3527 Jun, [facility] [place] [facility] [address] [id number] [place] [address]- 7257 Jun, [facility] [place] [facility] [address] [id number] [place] [address]- 9525 Jun, [facility] [place] [facility] [address] [id number] [place] [address] 1968 Jun, [facility] [place] [facility] [address] [id number] [place] [address]- 0464 Jun, [facility] [place] [facility] [address] [id number] [place] [address]- 2139 Jun, [facility] [place] [facility] [address] [id number] [place] [address]- 8966 May, [facility] [place] [facility] [address] [id number] [place] [address]- 2895 May, [facility] [place] [facility] [address] [id number] [place] [address]- 3327 May, [facility] [place] [facility] [address] [id number] [place] [address]- 1352 May, [facility] [place] [facility] [address] [id number] [place] [address]- 8887 May, [facility] [place] [facility] [address] [id number] [place] [address]- 5667 May, [facility] [place] [facility] [address] [id number], [place] [address] 2[address] May, [facility] [place] [facility] [address] [id number] [place] [address]- 2296 May, [facility] [place] [facility] [address] [id number] [place] [address]- 9590 May, [facility] [place] [facility] [address] [id number] [place] [address]- 1711 May, [facility] [place] [facility] [address] [id number], [place] [address] 9[address] Apr, [facility] [place] [facility] [address] [id number] [place] [address]- 0932 Apr, [facility] [place] [facility] [address] [id number] [place] [address]- 7327 Apr, [facility] [place] [facility] [address] [id number] [place] [address]- 7515 Apr, [facility] [place] [facility] [address] [id number] [place] [address]- 1553 Apr, [facility] [place] [facility] [address] [id number] [place] [address]- 9429 Apr, [facility] [place] [facility] [address] [id number] [place] [address]- 2019 Apr, [facility] [place] [facility] [address] [id number] [place] [address]- 9320 Apr, [facility] [place] [facility] [address] [id number] [place] [address]- 5993 Apr, [facility] [place] [facility] [address] [id number] [place] [address]- 8646 Apr, [facility] [place] [facility] [address] [id number] [place] [address]- 8843 Mar, [facility] [place] [facility] [address] [id number] [place] [address]- 0443 Mar, [facility] [place] [facility] [address] [id number] [place] [address]- 9374 Mar, [facility] [place] [facility] [address] [id number] [place] [address]- 6554 Mar, [facility] [place] [facility] [address] [id number] [place] [address]- 1264 Mar, [facility] [place] [facility] [address] [id number] [place] [address]- 8652 Mar, [facility] [place] [facility] [address] [id number] [place] [address]- 9255 18 Mar, 2014 [facility] [place] [facility] [address] [id number] [place] [address]- 3570 Mar, [facility] [place] [facility] [address] [id number] [place] [address]- 8985 Mar, [facility] [place] [facility] [address] [id number] [place] [address]- 2004 Mar, [facility] [place] [facility] [address] [id number] [place] [address]- 5850 Mar, [facility] [place] [facility] [address] [id number] [place] [address]- 2099 Mar, [facility] [place] [facility] [address] [id number] [place] [address]- 2251 Mar, [facility] [place] [facility] [address] [id number] [place] [address]- 3142 Mar, [facility] [place] [facility] [address] [id number] [place] [address]- 0589 Mar, [facility] [place] [facility] [address] [id number] [place] [address]- 9579 Mar, [facility] [place] [facility] [address] [id number] [place] [address]- 2251 Mar, [facility] [place] [facility] [address] [id number] [place] [address]- 9523 Mar, [facility] [place] [facility] [address] [id number] [place] [address]- 0852 Mar, [facility] [place] [facility] [address] [id number] [place] [address]- 0617 Mar, [facility] [place] [facility] [address] [id number] [place] [address]- 4177 February, [facility] [place] [facility] [address] [id number] [place] [address]- 2464 February, [facility] [address] [id number] [place] [address]- 5260 February, [facility] [place] [facility] [address] [id number] [place] [address]- 7444 February, [facility] [place] [facility] [address] [id number] [place] [address]- 4629 February, [facility] [place] [facility] [address] [id number] [place] [address]- 0312 February, [facility] [place] [facility] [address] [id number] [place] [address]- 4987 February, [facility] [place] [facility] [address] [id number] [place] [address]- 6293 February, [facility] [place] [facility] [address] [id number] [place] [address]- 8931 February, [facility] [place] [facility] [address] [id number] [place] [address]- 0638 February, [facility] [place] [facility] [address] [id number] [place] [address]- 3923 February, [facility] [place] [facility] [address] [id number] [place] [address]- 5439 February, [facility] [place] [facility] [address] [id number] [place] [address]- 9889 February, [facility] [place] [facility] [address] [id number] [place] [address]- 6575 February, [facility] [place] [facility] [address] [id number] [place] [address]- 4741 February, [facility] [place] [facility] [address] [id number] [place] [address]- 3517 February, [facility] [place] [facility] [address] [id number] [place] [address]- 1883 February, [facility] [place] [facility] [address] [id number] [place] [address]- 7551 February, [facility] [place] [facility] [address] [id number] [place] [address]- 8361 February, [facility] [place] [facility] [address] [id number] [place] [address]- 1922 February, [facility] [place] [facility] [address] [id number] [place] [address]- 5032 February, [facility] [place] [facility] [address] [id number] [place] [address]- 0663 Jan, [facility] [place] [facility] [address] [id number] [place] [address]- 8527 Jan, [facility] [place] [facility] [address] [id number] [place] [address]- 4870 Jan, [facility] [place] [facility] [address] [id number] [place] [address]- 3099 Jan, [facility] [place] [facility] [address] [id number] [place] [address]- 3974 Jan, [facility] [place] [facility] [address] [id number] [place] [address]- 9156 Jan, [facility] [place] [facility] [address] [id number] [place] [address]- 1238 Jan, [facility] [place] [facility] [address] [id number] [place] [address]- 5808 Jan, [facility] [place] [facility] [address] [id number] [place] [address]- 7440 Dec, [facility] [place] [facility] [address] [id number] [place] [address]- 8091 Dec, [facility] [place] [facility] [address] [id number] [place] [address]- 1104 Dec, [facility] [place] [facility] [address] [id number] [place] [address]- 2263 Dec, [facility] [place] [facility] [address] [id number] [place] [address]- 3661 19 Dec, 2013 [facility] [place] [facility] [address] [id number] [place] [address]- 4249 15 Dec, 2013 [facility] [place] [facility] [address] [id number] [place] [address]- 6538 15 Dec, 2013 [facility] [place] [facility] [address] [id number] [place] [address]- 1691 11 Dec, 2013 [facility] [place] [facility] [address] [id number] [place] [address]- 2363 10 Dec, 2013 [facility] [place] [facility] [address] [id number] [place] [address]- 8303 10 Dec, 2013 [facility] [place] [facility] [address] [id number] [place] [address]- 4738 18 Nov, 2013 [facility] [place] [facility] [address] [id number] [place] [address]- 5731 Nov, [facility] [place] [facility] [address] [id number] [place] [address]- 4844 Nov, [facility] [place] [facility] [address] [id number] [place] [address]- 7597 05 Nov, 2013 [facility] [place] [facility] [address] [id number] [place] [address]- 5919 Nov, [facility] [place] [facility] [address] [id number] [place] [address]- 4786 Oct, [facility] [place] [facility] [address] [id number] [place] [address]- 2507 Oct, [facility] [place] [facility] [address] [id number] [place] [address]- 2586 16 Oct, 2013 [facility] [place] [facility] [address] [id number] [place] [address]- 6409 Sep, [facility] [place] [facility] [address] [id number] [place] [address]- 5840 Sep, [facility] [address] [id number] [place] [address]- 6077 Sep, [facility] [place] [facility] [address] [id number] [place] [address] Sep, [facility] [place] [facility] [address] [id number] [place] [address]- 0870 Aug, [facility] [place] [facility] [address] [id number] [place] [address]- 4525 Aug, [facility] [place] [facility] [address] [id number] [place] [address]- 6881 Jul, [facility] [place] [facility] [address] [id number] [place] [address]- 0892 Jul, [facility] [address] [id number], [place] [address]- 9807 Jul, [facility] [place] [facility] [address] [id number], [place] [address]- 2524 Jul, [facility] [place] [facility] [address] [id number] [place] [address]- 1886 Jul, [facility] [place] [facility] [address] [id number], [place] [address]- 8297 25 Jun, 2013 [facility] [place] [facility] [address] [id number], [place] [address]- 7934 25 Jun, 2012 [facility] [place] [facility] [address] [id number], [place] [address]- 8453 19 Sep, 2012 [facility] [place] [facility] [address] [id number], [place] [address]- 6919 18 Sep, 2012 [facility] [place] [facility] [address] [id number][place] [address]- 1768 16 Sep, 2012 [facility] [place] [facility] [address] [id number], [place] [address]- 5795 12 Sep, 2012 [facility] [place] [facility] [address] [id number] [place] [address]- 8937 Jun, [facility] [address] [id number] [place] [address]- 8882 May, [facility] [place] [facility] [address] [id number] [place] [address]- 9322 May, [facility] [place] [facility] [address] [id number] [place] [address]- 4959 Apr, [facility] [place] [facility] [address] [id number] [place] [address]- 7021 Apr, [facility] [place] [facility] [address] [id number] [place] [address]- 5634 Apr, [facility] [address] [id number] [place] [address]- 4913 Mar, [facility] [address] [id number] [place] [address]- 4722 Mar, [facility] [address] [id number] [place] [address]- 9597 February, [facility] [address] [id number] [place] [address]- 8138 February, [facility] [address] [id number] [place] [address]- 1770 February, [facility] [address] [id number] [place] [address]- 8096 February, [facility] [place] [facility] [address] [id number] [place] [address]- 8088 Jan, [facility] [place] [facility] [address] [id number] [place] [address]- 0480 17 Jan, 2013 [facility] [place] [facility] [address] [id number] [place] [address]- 7826 16 Jan, 2013 [facility] [place] [facility] [address] [id number] [place] [address]- 3907 Dec, [facility] [address] [id number] [place] [address]- 1011 Dec, [facility] [place] [facility] [address] [id number] [place] [address]- 8887 Dec, [facility] [place] [facility] [address] [id number] [place] [address]93 Dec, [facility] [place] [facility] [address] [id number] [place] [address]- 7711 Nov, [facility] [place] [facility] [address] [id number] [place] [address]- 2624 Nov, [facility] [place] [facility] [address] [id number] [place] [address]- 1381 Oct, [facility] [place] [facility] [address] [id number] [place] [address]- 2902 Oct, [facility] [place] [facility] [address] [id number] [place] [address]- 4346 Oct, [facility] [place] [facility] [address] [id number] [place] [address]- 4355 Oct, [facility] [place] [facility] [address] [id number] [place] [address]- 3521 Aug, [facility] [place] [facility] [address] [id number] [place] [address]- 8490 Aug, [facility] [place] [facility] [address] [id number] [place] [address]- 4582 Jun, [facility] [place] [facility] [address] [id number] [place] [address]- 9514 May, [facility] [place] [facility] [address] [id number] [place] [address]- 0684 May, [facility] [place] [facility] [address] [id number] [place] [address]- 9062 Apr, [facility] [place] [facility] [address] [id number] [place] [address]- 7016 Apr, [facility] [address] [id number] [place] [address]- 7489 Apr, [facility] [address] [id number] [place] [address]- 4828 Mar, [facility] [address] [id number] [place] [address]- 6928 Mar, [facility] [address] [id number] [place] [address]- 8522 Mar, [facility] [address] [id number] [place] [address]- 4167 Mar, [facility] [address] [id number] [place] [address]- 6876 Mar, [facility] [address] [id number] [place] [address]- 8452 February, [facility] [address] [id number] [place] [address]- 4889 February, [facility] [address] [id number] [place] [address]- 7204 February, [facility] [address] [id number] [place] 2333 February, [facility] [address] [id number] [place] [address]- 4997 February, [facility] [address] [id number] [place] [address]- 5897 February, [facility] [place] [facility] [address] [id number] [place] [address]- 6226 February, [facility] [address] [id number] [place] [address]- 8906 Jan, [facility] [address] [id number] [place] [address]- 8835 Jan, [facility] [address] [id number] [place] [address]- 2485 17 Jan, 2012 [facility] [place] [facility] [address] [id number] [place] [address]- 4236 13 Jan, 2012 [facility] [place] [facility] [address] [id number] [place] [address]- 5056 10 Jan, 2012 [facility] [place] [facility] [address] [id number] [place] [address]- 5336 04 Jan, 2012 [facility] [place] [facility] [address] [id number] [place] [address]- 6758 30 Dec, 2011 [facility] [place] [facility] [address] [id number] [place] [address]- 0586 24 Dec, 2011 [facility] [place] [facility] [address] [id number] [place] [address]- 4890 20 Dec, 2011 [facility] [place] [facility] [address] [id number] [place] [address]- 9074 13 Dec, 2011 [facility] [place] [facility] [address] [id number] [place] [address]- 4438 06 Dec, 2011 [facility] [place] [facility] [address] [id number] [place] [address]- 8862 28 Nov, 2011 [facility] [place] [facility] [address] [id number] [place] [address]- 6366 27 Nov, 2011 [facility] [place] [facility] [address] [id number] [place] [address]- 5286 25 Nov, 2011 [facility] [place] [facility] [address] [id number] [place] [address]- 7346 14 Nov, 2011 [facility] [place] [facility] [address] [id number] [place] [address]- 9286 10 Nov, 2011 [facility] [place] [facility] [address] [id number] [place] [address]- 6106 01 Nov, 2011 [facility] [place] [facility] [address] [id number] [place] [address]- 4403 Oct, [facility] [address] [id number] [place] [address]- 3303 Oct, [facility] [address] [id number] [place] [address]- 6336 Oct, [facility] [address] [id number] [place] [address]- 0156 Oct, [facility] [address] [id number] [place] [address]- 0209 Oct, [facility] [address] [id number] [place] [address]- 6561 Sep, [facility] [address] [id number] [place] [address]- 8122 Sep, [facility] [address] [id number] [place] [address]- 3812 Sep, [facility] [address] [id number] [place] [address]- 5938 14 Sep, 2011 [facility] [address] [id number] [place] [address]- 5161 14 Sep, 2011 [facility] [address] [id number] [place] [address]- 7559 13 Sep, 2011 [facility] [address] [id number] [place] [address]- 4403 Sep, [facility] [address] [id number] [place] [address] Sep, [facility] [place] [facility] [address] [id number] [place] [address] 05 Sep, 2011 [facility] [place] [facility] [address] [id number] [place] [id number] 30 Aug, 2011 [facility] [address] [id number] [place] [address] Aug, [facility] [place] [facility] [address] [id number] [place] [address] Aug, [facility] [place] [facility] [address] [id number] [place] [address] Aug, [facility] [place] [facility] [address] [id number] [place] [address] Aug, [facility] [place] [facility] [address] [id number] [place] [address] Aug, [facility] [place] [facility] [address] [id number] [place] [address] Aug, [facility] [place] [facility] [address] [id number] [place] [address] Aug, [facility] [place] [facility] [address] [id number] [place] [address] Aug, [facility] [place] [facility] [address] [id number] [place] [address] Aug, [facility] [place] [facility] [address] [id number] [place] [address] Aug, [facility] [place] [facility] [address] [id number] [place] [address] Aug, [facility] [place] [facility] [address] [id number] [place] [address] Jul, [facility] [place] [facility] [address] [id number] [address] Jul, [facility] [place] [facility] [address] [id number] [place] [address] Jul, [facility] [place] [facility] [address] [id number] [place] [address] Jul, [facility] [place] [facility] [address] [id number], [place] [address] Jul, [facility] [place] [facility] [address] [id number], [place] [address] Jul, [facility] [id number] [address] Jul, [facility] [address] [facility] [id number] [address] Jul, [facility] [id number], [place] [address] Jul, [facility] [id number], [place] [address] Jul, [facility] [id number], [place] [address] Nov, [facility] [id number] Aug, [facility] [id number], [place] [address] Aug, [facility] [id number], [place] [address] Aug, [facility] [id number], [place] [address] Aug, [facility] [id number], [place] [address] Jul, IMMUNIZATIONS No Known Immunizations SOCIAL HISTORY Never Assessed REASON FOR VISIT Refill request PLAN OF CARE VITAL SIGNS MEDICATIONS Medication Instructions Dosage Frequency Start Date End Date Duration Status Invega 6 MG Orally Once a day 2 tablets 24h Nov, 30 days Active RESULTS No Results PROCEDURES No Known procedures INSTRUCTIONS MEDICATIONS ADMINISTERED No Known Medications MEDICAL (GENERAL) HISTORY Type Description Date Medical History diabetes Medical History thyroid Surgical History appendix Surgical History gallbladder Surgical History eyes Surgical History hip Surgical History MRI on back and pelvis 06/08 Hospitalization History surgeries Hospitalization History [facility] Suicide attempt by hanging 06/14/2016 Hospitalization History [facility] 01/30/2018-02/10/2008
--- OUTSIDE RECORDS SUMMARY | 2018-03-13 16:13 | XMS REPORT | Continuity of Care Document ---
Author Author Formerly [facility] Address Unknown Phone Unavailable Allergies Active Description Code Type Severity Reaction Onset Reported/Identified Relationship to Patient Clinical Status Yes cefuroxime [id number] Drug Allergy Severe RASH 12/14/2005 Yes Penicillins [id number] Drug Allergy Severe RASH 12/14/2005 Yes amoxicillin [id number] Drug Allergy Severe sob, rash 11/01/2010 Yes [...] Delayed Release(E.C.) Drug Allergy 2011 Yes clarithromycin [id number] Drug Allergy Mild nausea and dizz 02/07/2014 [...] AFFECTIVE 07/17/2010 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 07/17/2010 FINLEY BRICK CHIMNEY SUPERVISOR, AFUA BOSWELL 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 07/17/2010 FINLEY BRICK CHIMNEY SUPERVISOR, AFUA BOSWELL 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 07/17/2010 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 07/17/2010 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 07/17/2010 FINLEY BRICK CHIMNEY SUPERVISOR, AFUA BOSWELL 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 07/17/2010 FINLEY BRICK CHIMNEY SUPERVISOR, AFUA BOSWELL 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 07/17/2010 295.70 [...] AFFECTIVE 07/17/2010 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 07/17/2010 FINLEY BRICK CHIMNEY SUPERVISOR, AFUA BOSWELL 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 07/17/2010 FINLEY BRICK CHIMNEY SUPERVISOR, AFUA BOSWELL 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 07/17/2010 FINLEY BRICK CHIMNEY SUPERVISOR, AFUA BOSWELL 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 07/17/2010 FINLEY BRICK CHIMNEY SUPERVISOR, AFUA LIZAMAH 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 07/17/2010 FINLEY BRICK CHIMNEY SUPERVISOR, AFUA BOSWELL 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 07/17/2010 FINLEY BRICK CHIMNEY SUPERVISOR, AFUA LIZAMAH 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 07/17/2010 FINLEY BRICK CHIMNEY SUPERVISOR, AFUA BOSWELL 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 07/17/2010 FINLEY BRICK CHIMNEY SUPERVISOR, AFUA LIZAMAH 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 07/17/2010 FINLEY BRICK CHIMNEY SUPERVISOR, AFUA BOSWELL 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 07/17/2010 FINLEY BRICK CHIMNEY SUPERVISOR, AFUA LIZAMAH 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 07/17/2010 FINLEY BRICK CHIMNEY SUPERVISOR, AFUA BOSWELL 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 07/17/2010 FINLEY BRICK CHIMNEY SUPERVISOR, AFUA LIZAMAH 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 07/17/2010 FINLEY BRICK CHIMNEY SUPERVISOR, AFUA BOSWELL 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 07/17/2010 FINLEY BRICK CHIMNEY SUPERVISOR, AFUA BOSWELL 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 07/17/2010 FINLEY BRICK CHIMNEY SUPERVISOR, AFUA BOSWELL 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 07/17/2010 FINLEY BRICK CHIMNEY SUPERVISOR, AFUA BOSWELL 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 07/17/2010 FINLEY BRICK CHIMNEY SUPERVISOR, AFUA BOSWELL 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 07/17/2010 FINLEY BRICK CHIMNEY SUPERVISOR, AFUA BOSWELL 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 07/17/2010 LILA BRICK CHIMNEY SUPERVISOR, BRYAN 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 07/17/2010 LILA BRICK CHIMNEY SUPERVISOR, BRYAN 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 07/17/2010 VYAS DO ALVARO K 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 07/17/2010 VYAS DO ALVARO K 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 07/17/2010 LILA BRICK CHIMNEY SUPERVISOR, BRYAN 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 07/17/2010 LILA BRICK CHIMNEY SUPERVISOR, BRYAN 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 07/17/2010 LILA BRICK CHIMNEY SUPERVISOR, BRYAN 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 07/17/2010 LILA BRICK CHIMNEY SUPERVISOR, BRYAN 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 07/17/2010 LILA BRICK CHIMNEY SUPERVISOR, BRYAN 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 07/17/2010 LILA BRICK CHIMNEY SUPERVISOR, BRYAN 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 07/17/2010 LILA BRICK CHIMNEY SUPERVISOR, BRYAN 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 07/17/2010 LILA BRICK CHIMNEY SUPERVISOR, BRYAN 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 07/17/2010 VYAS DO ALVARO K 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 07/17/2010 VYAS DO ALVARO K 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 07/17/2010 LILA BRICK CHIMNEY SUPERVISOR, BRYAN 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 07/17/2010 LILA BRICK CHIMNEY SUPERVISOR, BRYAN 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 07/17/2010 LILA BRICK CHIMNEY SUPERVISOR, BRYAN 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 07/17/2010 LILA BRICK CHIMNEY SUPERVISOR, BRYAN 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 07/17/2010 LILA BRICK CHIMNEY SUPERVISOR, BRYAN 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 07/17/2010 LILA BRICK CHIMNEY SUPERVISOR, BRYAN 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 07/17/2010 LILA BRICK CHIMNEY SUPERVISOR, BRYAN 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 07/17/2010 LILA BRICK CHIMNEY SUPERVISOR, BRYAN 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 07/17/2010 LILA BRICK CHIMNEY SUPERVISOR, BRYAN 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 07/17/2010 LILA BRICK CHIMNEY SUPERVISOR, BRYAN 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 07/17/2010 VYAS DO, ALVARO K 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 07/17/2010 VYAS DO, ALVARO K 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 07/17/2010 VYAS DO, ALVARO K 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 07/17/2010 VYAS DO, ALVARO K 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 07/17/2010 LILA BRICK CHIMNEY SUPERVISOR, BRYAN 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 07/17/2010 LILA BRICK CHIMNEY SUPERVISOR, BRYAN 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 07/17/2010 LILA BRICK CHIMNEY SUPERVISOR, BRYAN 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 07/17/2010 LILA BRICK CHIMNEY SUPERVISOR, BRYAN 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 07/17/2010 LILA BRICK CHIMNEY SUPERVISOR, BRYAN 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 07/17/2010 LILA BRICK CHIMNEY SUPERVISOR, BRYAN 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 07/17/2010 LILA BRICK CHIMNEY SUPERVISOR, BRYAN 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 07/17/2010 LILA BRICK CHIMNEY SUPERVISOR, BRYAN 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 07/17/2010 LILA BRICK CHIMNEY SUPERVISOR, BRYAN 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 07/17/2010 LILA BRICK CHIMNEY SUPERVISOR, BRYAN 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 11/01/2010 Ot 682.3 [...] 278.01 OBESITY, MORBID (BMI >40) 02/22/2011 FINLEY BRICK CHIMNEY SUPERVISOR, AFUA BOSWELL 401.1 HYPERTENSION, BENIGN ESSENTIAL 02/22/2011 TUSHAR GAYNiharika AFUA BOSWELL 278.01 OBESITY, MORBID (BMI >40) 02/22/2011 TUSHAR CHAUDHRY AFUA LIZAMAH 401.1 HYPERTENSION, BENIGN ESSENTIAL 02/22/2011 278.01 OBESITY, MORBID (BMI >40) 02/22/2011 401.1 HYPERTENSION, BENIGN ESSENTIAL 02/22/2011 FINLEYMONICO GAYNiharika AFUA LIZAMAH 278.01 OBESITY, MORBID (BMI >40) 02/22/2011 FINLEY BRICK CHIMNEY SUPERVISOR, AFUA LIZAMAH 401.1 HYPERTENSION, BENIGN ESSENTIAL 02/22/2011 [...] 02/22/2011 401.1 HYPERTENSION, BENIGN ESSENTIAL 02/22/2011 FINLEY BRICK CHIMNEY SUPERVISOR, AFUA BOSWELL 278.01 OBESITY, MORBID (BMI >40) 02/22/2011 FINLEY BRICK CHIMNEY SUPERVISOR, AFUA ANDREIA 401.1 HYPERTENSION, BENIGN ESSENTIAL 02/22/2011 FINLEY BRICK CHIMNEY SUPERVISOR, AFUA ANDREIA 278.01 OBESITY, MORBID (BMI >40) 02/22/2011 FINLEY BRICK CHIMNEY SUPERVISOR, AFUA ANDREIA 401.1 HYPERTENSION, BENIGN ESSENTIAL 02/22/2011 FINLEY BRICK CHIMNEY SUPERVISOR, AFUA ANDREIA 278.01 OBESITY, MORBID (BMI >40) 02/22/2011 FINLEY BRICK CHIMNEY SUPERVISOR, AFUA ANDREIA 401.1 HYPERTENSION, BENIGN ESSENTIAL 02/22/2011 FINLEY BRICK CHIMNEY SUPERVISOR, AFUA ANDREIA 278.01 OBESITY, MORBID (BMI >40) 02/22/2011 FINLEY BRICK CHIMNEY SUPERVISOR, AFUA LIZAMAH 401.1 HYPERTENSION, BENIGN ESSENTIAL 02/22/2011 FINLEY BRICK CHIMNEY SUPERVISOR, AFUA ANDREIA 278.01 OBESITY, MORBID (BMI >40) 02/22/2011 FINLEY BRICK CHIMNEY SUPERVISOR, FAUA LIZAMAH 401.1 HYPERTENSION, BENIGN ESSENTIAL 02/22/2011 FINLEY BRICK CHIMNEY SUPERVISOR, AFUA ANDREIA 278.01 OBESITY, MORBID (BMI >40) 02/22/2011 FINLEY BRICK CHIMNEY SUPERVISOR, AFUA ANDREIA 401.1 HYPERTENSION, BENIGN ESSENTIAL 02/22/2011 FINLEY BRICK CHIMNEY SUPERVISOR, AFUA ANDREIA 278.01 OBESITY, MORBID (BMI >40) 02/22/2011 FINLEY BRICK CHIMNEY SUPERVISOR, AFUA ANDREIA 401.1 HYPERTENSION, BENIGN ESSENTIAL 02/22/2011 FINLEY BRICK CHIMNEY SUPERVISOR, AFUA ANDREIA 278.01 OBESITY, MORBID (BMI >40) 02/22/2011 FINLEY BRICK CHIMNEY SUPERVISOR, AFUA ANDREIA 401.1 HYPERTENSION, BENIGN ESSENTIAL 02/22/2011 FINLEY BRICK CHIMNEY SUPERVISOR, AFUA ANDREIA 278.01 OBESITY, MORBID (BMI >40) 02/22/2011 FINLEY BRICK CHIMNEY SUPERVISOR, AFUA ANDREIA 401.1 HYPERTENSION, BENIGN ESSENTIAL 02/22/2011 LILA BRICK CHIMNEY SUPERVISOR, BRYAN 278.01 OBESITY, MORBID (BMI >40) 02/22/2011 LILA BRICK CHIMNEY SUPERVISOR, BRYAN 401.1 HYPERTENSION, BENIGN ESSENTIAL 02/22/2011 ALVARO VYAS DO 278.01 OBESITY, MORBID (BMI >40) 02/22/2011 ASAEL CHAPMAN ALVARO K 401.1 HYPERTENSION, BENIGN ESSENTIAL 02/22/2011 LILA BRICK CHIMNEY SUPERVISOR, BRYAN 278.01 OBESITY, MORBID (BMI >40) 02/22/2011 LILA BRICK CHIMNEY SUPERVISOR, BRYAN 401.1 HYPERTENSION, BENIGN ESSENTIAL 02/22/2011 LILA BRICK CHIMNEY SUPERVISOR, BRYAN 278.01 OBESITY, MORBID (BMI >40) 02/22/2011 LILA BRICK CHIMNEY SUPERVISOR, BRYAN 401.1 HYPERTENSION, BENIGN ESSENTIAL 02/22/2011 LILA BRICK CHIMNEY SUPERVISOR, BRYAN 278.01 OBESITY, MORBID (BMI >40) 02/22/2011 LILA BRICK CHIMNEY SUPERVISOR, BRYAN 401.1 HYPERTENSION, BENIGN ESSENTIAL 02/22/2011 LILA BRICK CHIMNEY SUPERVISOR, BRYAN 278.01 OBESITY, MORBID (BMI >40) 02/22/2011 LILA BRICK CHIMNEY SUPERVISOR, BRYAN 401.1 HYPERTENSION, BENIGN ESSENTIAL 02/22/2011 ASAEL CHAPMAN ALVARO K 278.01 OBESITY, MORBID (BMI >40) 02/22/2011 ASAEL CHAPMAN ALVARO K 401.1 HYPERTENSION, BENIGN ESSENTIAL 02/22/2011 LILA BRICK CHIMNEY SUPERVISOR, BRYAN 278.01 OBESITY, MORBID (BMI >40) 02/22/2011 LILA BRICK CHIMNEY SUPERVISOR, BRYAN 401.1 HYPERTENSION, BENIGN ESSENTIAL 02/22/2011 LILA BRICK CHIMNEY SUPERVISOR, BRYAN 278.01 OBESITY, MORBID (BMI >40) 02/22/2011 LILA BRICK CHIMNEY SUPERVISOR, BRYAN 401.1 HYPERTENSION, BENIGN ESSENTIAL 02/22/2011 LILA BRICK CHIMNEY SUPERVISOR, BRYAN 278.01 OBESITY, MORBID (BMI >40) 02/22/2011 LILA BRICK CHIMNEY SUPERVISOR, BRYAN 401.1 HYPERTENSION, BENIGN ESSENTIAL 02/22/2011 LILA BRICK CHIMNEY SUPERVISOR, BRYAN 278.01 OBESITY, MORBID (BMI >40) 02/22/2011 LILA BRICK CHIMNEY SUPERVISOR, BRYAN 401.1 HYPERTENSION, BENIGN ESSENTIAL 02/22/2011 LILA BRICK CHIMNEY SUPERVISOR, BRYAN 278.01 OBESITY, MORBID (BMI >40) 02/22/2011 LILA BRICK CHIMNEY SUPERVISOR, BRYAN 401.1 HYPERTENSION, BENIGN ESSENTIAL 02/22/2011 ASAEL CHAPMAN ALVARO K 278.01 OBESITY, MORBID (BMI >40) 02/22/2011 ASAEL CHAPMAN ALVARO K 401.1 HYPERTENSION, BENIGN ESSENTIAL 02/22/2011 VYAS DO ALVARO K 278.01 OBESITY, MORBID (BMI >40) 02/22/2011 ALVARO VYAS DO 401.1 HYPERTENSION, BENIGN ESSENTIAL 02/22/2011 LILA BRICK CHIMNEY SUPERVISOR, BRYAN 278.01 OBESITY, MORBID (BMI >40) 02/22/2011 LILA BRICK CHIMNEY SUPERVISOR, BRYAN 401.1 HYPERTENSION, BENIGN ESSENTIAL 02/22/2011 LILA BRICK CHIMNEY SUPERVISOR, BRYAN 278.01 OBESITY, MORBID (BMI >40) 02/22/2011 LILA BRICK CHIMNEY SUPERVISOR, BRYAN 401.1 HYPERTENSION, BENIGN ESSENTIAL 02/22/2011 LILA BRICK CHIMNEY SUPERVISOR, BRYAN 278.01 OBESITY, MORBID (BMI >40) 02/22/2011 LILA BRICK CHIMNEY SUPERVISOR, BRYAN 401.1 HYPERTENSION, BENIGN ESSENTIAL 02/22/2011 LILA BRICK CHIMNEY SUPERVISOR, BRYAN 278.01 OBESITY, MORBID (BMI >40) 02/22/2011 LILA BRICK CHIMNEY SUPERVISOR, BRYAN 401.1 HYPERTENSION, BENIGN ESSENTIAL 02/22/2011 LILA BRICK CHIMNEY SUPERVISOR, BRYAN 278.01 OBESITY, MORBID (BMI >40) 02/22/2011 LILA BRICK CHIMNEY SUPERVISOR, BRYAN 401.1 HYPERTENSION, BENIGN ESSENTIAL 02/26/2011 TUSHAR [...] 244.9 UNSPECIFIED ACQUIRED HYPOTHYROIDISM 02/26/2011 TUSHAR CHAUDHRY AFAU BOSWELL 250.00 DIABETES MELLITUS WITHOUT MENTION OF [...] UNSPECIFIED TYPE NOT STATED UNCONTROLLED 02/26/2011 LILA BRICK CHIMNEY SUPERVISOR, BRYAN 719.47 PAIN IN JOINT INVOLVING ANKLE AND FOOT 02/26/2011 LILA BRICK CHIMNEY SUPERVISOR, BRYAN V70.0 GENERAL MEDICAL EXAM, ROUTINE, AT HEALTH CARE FACILITY 02/26/2011 LILA BRICK CHIMNEY SUPERVISOR, BRYAN 244.9 UNSPECIFIED ACQUIRED HYPOTHYROIDISM 02/26/2011 LILA BRICK CHIMNEY SUPERVISOR, BRYAN 250.00 DIABETES MELLITUS WITHOUT MENTION OF COMPLICATION TYPE II OR UNSPECIFIED TYPE NOT STATED UNCONTROLLED 02/26/2011 LILA BRICK CHIMNEY SUPERVISOR BRYAN 719.47 PAIN IN JOINT INVOLVING ANKLE AND FOOT 02/26/2011 LILA BRICK CHIMNEY SUPERVISOR, BRYAN V70.0 GENERAL MEDICAL EXAM, ROUTINE, AT HEALTH CARE FACILITY 02/26/2011 LILA BRICK CHIMNEY SUPERVISOR, BRYAN 244.9 UNSPECIFIED ACQUIRED HYPOTHYROIDISM 02/26/2011 LILA BRICK CHIMNEY SUPERVISOR, BRYAN 250.00 DIABETES MELLITUS WITHOUT MENTION OF COMPLICATION TYPE II OR UNSPECIFIED TYPE NOT STATED UNCONTROLLED 02/26/2011 LILA CHAUDHRY BRYAN 719.47 PAIN IN JOINT INVOLVING ANKLE AND FOOT 02/26/2011 LILADINA CHAUDHRY, BRYAN V70.0 GENERAL MEDICAL EXAM, ROUTINE, AT HEALTH CARE FACILITY 02/26/2011 LILA BRICK CHIMNEY SUPERVISOR, BRYAN 244.9 UNSPECIFIED ACQUIRED HYPOTHYROIDISM 02/26/2011 LILA BRICK CHIMNEY SUPERVISOR, BRYAN 250.00 DIABETES MELLITUS WITHOUT MENTION OF [...] ROUTINE, AT HEALTH CARE FACILITY 02/26/2011 LILA BRICK CHIMNEY SUPERVISOR, BRYAN 244.9 UNSPECIFIED ACQUIRED HYPOTHYROIDISM 02/26/2011 LILA BRICK CHIMNEY SUPERVISOR, BRYAN 250.00 DIABETES MELLITUS WITHOUT MENTION OF COMPLICATION TYPE II OR UNSPECIFIED TYPE NOT STATED UNCONTROLLED 02/26/2011 LILA BRICK CHIMNEY SUPERVISOR, BRYAN 719.47 PAIN IN JOINT INVOLVING ANKLE AND FOOT 02/26/2011 LILA BRICK CHIMNEY SUPERVISOR, BRYAN V70.0 GENERAL MEDICAL EXAM, ROUTINE, AT HEALTH CARE FACILITY 02/26/2011 LILA RICHA BRYAN 244.9 UNSPECIFIED ACQUIRED HYPOTHYROIDISM 02/26/2011 LILA BRICK CHIMNEY SUPERVISOR, BRYAN 250.00 DIABETES MELLITUS WITHOUT MENTION OF [...] BRYAN 244.9 UNSPECIFIED ACQUIRED HYPOTHYROIDISM 02/26/2011 LILA BRICK CHIMNEY SUPERVISOR, BRYAN 250.00 DIABETES MELLITUS WITHOUT MENTION OF COMPLICATION TYPE II OR UNSPECIFIED TYPE NOT STATED UNCONTROLLED 02/26/2011 LILA BRICK CHIMNEY SUPERVISOR, BRYAN 719.47 PAIN IN JOINT INVOLVING ANKLE AND FOOT 02/26/2011 LILA BRICK CHIMNEY SUPERVISOR, BRYAN V70.0 GENERAL MEDICAL EXAM, ROUTINE, AT [...] ROUTINE, AT HEALTH CARE FACILITY 02/26/2011 LILA BRICK CHIMNEY SUPERVISOR, BRYAN 244.9 UNSPECIFIED ACQUIRED HYPOTHYROIDISM 02/26/2011 ILLA BRICK CHIMNEY SUPERVISOR, BRYAN 250.00 DIABETES MELLITUS WITHOUT MENTION OF COMPLICATION TYPE II OR UNSPECIFIED TYPE NOT STATED UNCONTROLLED 02/26/2011 LILA BRICK CHIMNEY SUPERVISOR, BRYAN 719.47 PAIN IN JOINT INVOLVING ANKLE AND FOOT 02/26/2011 LILA BRICK CHIMNEY SUPERVISOR, BRYAN V70.0 GENERAL MEDICAL EXAM, ROUTINE, AT HEALTH CARE FACILITY 02/26/2011 LILA BRICK CHIMNEY SUPERVISOR, BRYAN 244.9 UNSPECIFIED ACQUIRED HYPOTHYROIDISM 02/26/2011 LILA BRICK CHIMNEY SUPERVISOR, BRYAN 250.00 DIABETES MELLITUS WITHOUT MENTION OF COMPLICATION TYPE II OR UNSPECIFIED TYPE NOT STATED UNCONTROLLED 02/26/2011 LILA BRICK CHIMNEY SUPERVISOR, BRYAN 719.47 PAIN IN JOINT INVOLVING ANKLE AND FOOT 02/26/2011 LILA BRICK CHIMNEY SUPERVISOR, BRYAN V70.0 GENERAL MEDICAL EXAM, ROUTINE, AT HEALTH CARE FACILITY 02/26/2011 LILA BRICK CHIMNEY SUPERVISOR, BRYAN 244.9 UNSPECIFIED ACQUIRED HYPOTHYROIDISM 02/26/2011 LILA BRICK CHIMNEY SUPERVISOR, BRYAN 250.00 DIABETES MELLITUS WITHOUT MENTION OF COMPLICATION TYPE II OR UNSPECIFIED TYPE NOT STATED UNCONTROLLED 02/26/2011 LILA BRICK CHIMNEY SUPERVISOR, BRYAN 719.47 PAIN IN JOINT INVOLVING ANKLE AND FOOT 02/26/2011 LILA BRICK CHIMNEY SUPERVISOR, BRYAN V70.0 GENERAL MEDICAL EXAM, ROUTINE, AT HEALTH CARE FACILITY 02/26/2011 LILA BRICK CHIMNEY SUPERVISOR, BRYAN 244.9 UNSPECIFIED ACQUIRED HYPOTHYROIDISM 02/26/2011 LILA BRICK CHIMNEY SUPERVISOR, BRYAN 250.00 DIABETES MELLITUS WITHOUT MENTION OF COMPLICATION TYPE II OR UNSPECIFIED TYPE NOT STATED UNCONTROLLED 02/26/2011 LILA BRICK CHIMNEY SUPERVISOR, BRYAN 719.47 PAIN IN JOINT INVOLVING ANKLE [...] BOSWELL V58.69 MEDICATION HIGH RISK 03/03/2011 FINLEY BRICK CHIMNEY SUPERVISOR, AFUA BOSWELL V58.69 MEDICATION HIGH RISK 03/03/2011 FINLEY RICHA AFUA BOSWELL V58.69 MEDICATION HIGH RISK 03/03/2011 FINLEY BRICK CHIMNEY SUPERVISOR, AFUA BOSWELL V58.69 MEDICATION HIGH RISK 03/03/2011 FINLEY RICHA AFUA BOSWELL V58.69 MEDICATION HIGH RISK 03/03/2011 FINLEY BRICK CHIMNEY SUPERVISOR, AFUA BOSWELL V58.69 MEDICATION HIGH RISK 03/03/2011 FINLEY BRICK CHIMNEY SUPERVISORAFUA V58.69 MEDICATION HIGH RISK 03/03/2011 LILA BRICK CHIMNEY SUPERVISOR, BRYAN V58.69 MEDICATION HIGH RISK 03/03/2011 ALVARO VYAS DO K V58.69 MEDICATION HIGH RISK 03/03/2011 LILA BRICK CHIMNEY SUPERVISOR, BRYAN V58.69 MEDICATION HIGH RISK 03/03/2011 LILA BRICK CHIMNEY SUPERVISOR, BRYAN V58.69 MEDICATION HIGH RISK 03/03/2011 LILA BRICK CHIMNEY SUPERVISOR, BRYAN V58.69 MEDICATION HIGH RISK 03/03/2011 LILA BRICK CHIMNEY SUPERVISOR, BRYAN V58.69 MEDICATION HIGH RISK 03/03/2011 ALVARO VYAS DO K V58.69 MEDICATION HIGH RISK 03/03/2011 LILA BRICK CHIMNEY SUPERVISOR, BRYAN V58.69 MEDICATION HIGH RISK 03/03/2011 LILA BRICK CHIMNEY SUPERVISOR, BRYAN V58.69 MEDICATION HIGH RISK 03/03/2011 LILA BRICK CHIMNEY SUPERVISOR, BRYAN V58.69 MEDICATION HIGH RISK 03/03/2011 LILA BRICK CHIMNEY SUPERVISOR, BRYAN V58.69 MEDICATION HIGH RISK 03/03/2011 LILA BRICK CHIMNEY SUPERVISOR, BRYAN V58.69 MEDICATION HIGH RISK 03/03/2011 ASAEL CHAPMAN ALVARO K V58.69 MEDICATION HIGH RISK 03/03/2011 AASEL CHAPMAN ALVARO K V58.69 MEDICATION HIGH RISK 03/03/2011 LILA BRICK CHIMNEY SUPERVISOR, BRYAN V58.69 MEDICATION HIGH RISK 03/03/2011 LILA BRICK CHIMNEY SUPERVISOR, BRYAN V58.69 MEDICATION HIGH RISK 03/03/2011 LILA BRICK CHIMNEY SUPERVISOR, BRYAN V58.69 MEDICATION HIGH RISK 03/03/2011 LILA BRICK CHIMNEY SUPERVISOR, BRYAN V58.69 MEDICATION HIGH RISK 03/03/2011 LILA BRICK CHIMNEY SUPERVISOR, BRYAN V58.69 MEDICATION HIGH RISK 03/20/2011 Ot [...] APRN 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 01/19/2013 FAUA FINLEY APRN 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 [...] 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 01/19/2013 LILA BRICK CHIMNEY SUPERVISOR, BRYAN 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 01/19/2013 ALVARO VYAS DO 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 01/19/2013 LILA BRICK CHIMNEY SUPERVISOR, BRYAN 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 01/19/2013 LILA BRICK CHIMNEY SUPERVISOR, BRYAN 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 01/19/2013 LILA BRICK CHIMNEY SUPERVISOR, BRYAN 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 01/19/2013 LILA BRICK CHIMNEY SUPERVISOR, BRYAN 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 01/19/2013 ALVARO VYAS DO K 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 01/19/2013 LILA BRICK CHIMNEY SUPERVISOR, BRYAN 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 01/19/2013 LILA BRICK CHIMNEY SUPERVISOR, BRYAN 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 01/19/2013 LILA BRICK CHIMNEY SUPERVISOR, BRYAN 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 01/19/2013 LILA BRICK CHIMNEY SUPERVISOR, BRYAN 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 01/19/2013 LILA BRICK CHIMNEY SUPERVISOR, BRYAN 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 01/19/2013 ALVARO VYAS DO K 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 01/19/2013 ALVARO VYAS DO K 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 01/19/2013 LILA BRICK CHIMNEY SUPERVISOR, BRYAN 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 01/19/2013 LILA BRICK CHIMNEY SUPERVISOR, BRYAN 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 01/19/2013 LILA BRICK CHIMNEY SUPERVISOR, BRYAN 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 01/19/2013 LILA BRICK CHIMNEY SUPERVISOR, BRYAN 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 01/19/2013 LILA BRICK CHIMNEY SUPERVISOR, BRYAN 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 02/08/2013 [...] 965.8 POIS-ANALGES/ ANTIPYR NEC 02/10/2013 Ot 968.0 POIS-PURCHASING INTERN MUSCLE DEPRESS 02/10/2013 Ot 969.3 POISON- ANTIPSYCHOTIC [...] FINLEY APRN 309.81 AN PTSD 07/18/2013 LILA BRICK CHIMNEY SUPERVISOR, BRYAN 309.81 AN PTSD 07/18/2013 VYAS DO ALVARO K 309.81 AN PTSD 07/18/2013 LILA BRICK CHIMNEY SUPERVISOR, BRYAN 309.81 AN PTSD 07/18/2013 LILA BRICK CHIMNEY SUPERVISOR, BRYAN 309.81 AN PTSD 07/18/2013 LILA BRICK CHIMNEY SUPERVISOR, BRYAN 309.81 AN PTSD 07/18/2013 LILA BRICK CHIMNEY SUPERVISOR, BRYAN 309.81 AN PTSD 07/18/2013 VYAS GEE CHAPMANA K 309.81 AN PTSD 07/18/2013 LILA BRICK CHIMNEY SUPERVISOR, BRYAN 309.81 AN PTSD 07/18/2013 LILA BRICK CHIMNEY SUPERVISOR, BRYAN 309.81 AN PTSD 07/18/2013 LILA BRICK CHIMNEY SUPERVISOR, BRYAN 309.81 AN PTSD 07/18/2013 LILA BRICK CHIMNEY SUPERVISOR, BRYAN 309.81 AN PTSD 07/18/2013 LILA BRICK CHIMNEY SUPERVISOR, BRYAN 309.81 AN PTSD 07/18/2013 VYAS GEE CHAPMANA K 309.81 AN PTSD 07/18/2013 GEE VYAS DOA K 309.81 AN PTSD 07/18/2013 LILA BRICK CHIMNEY SUPERVISOR, BRYAN 309.81 AN PTSD 07/18/2013 LILA BRICK CHIMNEY SUPERVISOR, BRYAN 309.81 AN PTSD 07/18/2013 LILA BRICK CHIMNEY SUPERVISOR, BRYAN 309.81 AN PTSD 07/18/2013 LILA BRICK CHIMNEY SUPERVISOR, BRYAN 309.81 AN PTSD 07/18/2013 LILA BRICK CHIMNEY SUPERVISOR, BRYAN 309.81 AN PTSD 09/03/2013 AFUA FINLEY APRN 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 09/03/2013 FINLEY AFUA CHAUDHRY 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 09/03/2013 FINLEY BRICK CHIMNEY SUPERVISORAFUA BundyH 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 09/03/2013 FINLEY BRICK CHIMNEY SUPERVISORAFUA BundyH 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 09/03/2013 FINLEY AFUA CHAUDHRYH 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 09/03/2013 FINLEY BRICK CHIMNEY SUPERVISORAFUA BundyH 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 09/03/2013 LILA BRICK CHIMNEY SUPERVISOR, BRYAN 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 09/03/2013 ALVARO VYAS DO K 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 09/03/2013 LILA BRICK CHIMNEY SUPERVISOR, BRYAN 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 09/03/2013 LILA BRICK CHIMNEY SUPERVISOR, BRYAN 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 09/03/2013 LILA BRICK CHIMNEY SUPERVISOR, BRYAN 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 09/03/2013 LILA BRICK CHIMNEY SUPERVISOR, BRYAN 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 09/03/2013 VYAS ALVARO K 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 09/03/2013 LILA BRICK CHIMNEY SUPERVISOR, BRYAN 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 09/03/2013 LILA BRICK CHIMNEY SUPERVISOR, BRYAN 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 09/03/2013LILA BRICK CHIMNEY SUPERVISOR, BRYAN 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 09/03/2013LILA BRICK CHIMNEY SUPERVISOR, BRYAN 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 09/03/2013 LILA BRICK CHIMNEY SUPERVISOR, BRYAN 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 09/03/2013 ASAEL CHAPMAN ALVARO K 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 09/03/2013 VYAS , ALVARO K 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 09/03/2013 LILA BRICK CHIMNEY SUPERVISOR, BRYAN 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 09/03/2013 LILA BRICK CHIMNEY SUPERVISOR, BRYAN 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 09/03/2013LILA BRICK CHIMNEY SUPERVISOR, BRYAN 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 09/03/2013LILA BRICK CHIMNEY SUPERVISOR, BRYAN 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 09/03/2013 LILA BRICK CHIMNEY SUPERVISOR, BRYAN 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 [...] 300.3 AN OBCESS COMP DIS 09/25/2013 LILA BRICK CHIMNEY SUPERVISOR, BRYAN 300.3 AN OBCESS COMP DIS 09/25/2013 VYAS DO, ALVARO K 300.3 AN OBCESS COMP DIS 09/25/2013 LILA BRICK CHIMNEY SUPERVISOR, BRYAN 300.3 AN OBCESS COMP DIS 09/25/2013 LILA BRICK CHIMNEY SUPERVISOR, BRYAN 300.3 AN OBCESS COMP DIS 09/25/2013 LILA BRICK CHIMNEY SUPERVISOR, BRYAN 300.3 AN OBCESS COMP DIS 09/25/2013 LILA BRICK CHIMNEY SUPERVISOR, BRYAN 300.3 AN OBCESS COMP DIS 09/25/2013 VYAS DO, ALVARO K 300.3 AN OBCESS COMP DIS 09/25/2013 LILA BRICK CHIMNEY SUPERVISOR, BRYAN 300.3 AN OBCESS COMP DIS 09/25/2013 LILA BRICK CHIMNEY SUPERVISOR, BRYAN 300.3 AN OBCESS COMP DIS 09/25/2013 LILA BRICK CHIMNEY SUPERVISOR, BRYAN 300.3 AN OBCESS COMP DIS 09/25/2013 LILA BRICK CHIMNEY SUPERVISOR, BRYAN 300.3 AN OBCESS COMP DIS 09/25/2013 LILA BRICK CHIMNEY SUPERVISOR, BRYAN 300.3 AN OBCESS COMP DIS 09/25/2013 VYAS DO, ALVARO K 300.3 AN OBCESS COMP DIS 09/25/2013 VYAS DO, ALVARO K 300.3 AN OBCESS COMP DIS 09/25/2013 LILA BRICK CHIMNEY SUPERVISOR, BRYAN 300.3 AN OBCESS COMP DIS 09/25/2013 LILA BRICK CHIMNEY SUPERVISOR, BRYAN 300.3 AN OBCESS COMP DIS 09/25/2013 LILA BRICK CHIMNEY SUPERVISOR, BRYAN 300.3 AN OBCESS COMP DIS 09/25/2013 LILA BRICK CHIMNEY SUPERVISOR, BRYAN 300.3 AN OBCESS COMP DIS 09/25/2013 [...] DO 296.80 MO BIPOLAR NOS 03/08/2014 LILA BRICK CHIMNEY SUPERVISOR, BRYAN 296.80 MO BIPOLAR NOS 03/08/2014 LILA BRICK CHIMNEY SUPERVISOR, BRYAN 296.80 MO BIPOLAR NOS 03/08/2014 LILA BRICK CHIMNEY SUPERVISOR, BRYAN 296.80 MO BIPOLAR NOS 03/08/2014 LILA BRICK CHIMNEY SUPERVISOR, BRYAN 296.80 MO BIPOLAR NOS 03/08/2014 VYAS DO ALVARO K 296.80 MO BIPOLAR NOS 03/08/2014 LILA BRICK CHIMNEY SUPERVISOR, BRYAN 296.80 MO BIPOLAR NOS 03/08/2014 LILA BRICK CHIMNEY SUPERVISOR, BRYAN 296.80 MO BIPOLAR NOS 03/08/2014 LILA BRICK CHIMNEY SUPERVISOR, BRYAN 296.80 MO BIPOLAR NOS 03/08/2014 LILA BRICK CHIMNEY SUPERVISOR, BRYAN 296.80 MO BIPOLAR NOS 03/08/2014 LILA BRICK CHIMNEY SUPERVISOR, BRYAN 296.80 MO BIPOLAR NOS 03/08/2014 VYAS DO, ALVARO K 296.80 MO BIPOLAR NOS 03/08/2014 VYAS DO, ALVARO K 296.80 MO BIPOLAR NOS 03/08/2014 LILA BRICK CHIMNEY SUPERVISOR, BRYAN 296.80 MO BIPOLAR NOS 03/08/2014 LILA BRICK CHIMNEY SUPERVISOR, BRYAN 296.80 MO BIPOLAR NOS 03/08/2014 LILA BRICK CHIMNEY SUPERVISOR, BRYAN 296.80 MO BIPOLAR NOS 03/08/2014 LILA BRICK CHIMNEY SUPERVISOR, BRYAN 296.80 MO BIPOLAR NOS 03/08/2014 LILA BRICK CHIMNEY SUPERVISOR, BRYAN 296.80 MO BIPOLAR NOS 03/11/2014 FINLEY RICHA AFUA BOSWELL 296.80 MO BIPOLAR NOS 03/11/2014 FINLEY RICHA AFUA BOSWELL 300.02 AN GEN ANXIETY 03/11/2014 FINLEY RICHA AFUA BOSWELL 314.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 03/11/2014 LILA BRICK CHIMNEY SUPERVISOR, BRYAN 296.80 MO BIPOLAR NOS 03/11/2014 LILA BRICK CHIMNEY SUPERVISOR, BRYAN 300.02 AN GEN ANXIETY 03/11/2014 LILA BRICK CHIMNEY SUPERVISOR, BRYAN 314.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 03/11/2014 VYAS GEE CHAPMANA K 296.80 MO BIPOLAR NOS 03/11/2014 VYAS DO ALVARO K 300.02 AN GEN ANXIETY 03/11/2014 VYAS DO ALVARO K 314.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 03/11/2014 LILA BRICK CHIMNEY SUPERVISOR, BRYAN 296.80 MO BIPOLAR NOS 03/11/2014 LILA BRICK CHIMNEY SUPERVISOR, BRYAN 300.02 AN GEN ANXIETY 03/11/2014 LILA BRICK CHIMNEY SUPERVISOR, BRYAN 314.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 03/11/2014 LILA BRICK CHIMNEY SUPERVISOR, BRYAN 296.80 MO BIPOLAR NOS 03/11/2014 LILA BRICK CHIMNEY SUPERVISOR, BRYAN 300.02 AN GEN ANXIETY 03/11/2014 LILA BRICK CHIMNEY SUPERVISOR, BRYAN 314.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 03/11/2014 LILA BRICK CHIMNEY SUPERVISOR, BRYAN 296.80 MO BIPOLAR NOS 03/11/2014 LILA BRICK CHIMNEY SUPERVISOR, BRYAN 300.02 AN GEN ANXIETY 03/11/2014 LILA BRICK CHIMNEY SUPERVISOR, BRYAN 314.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 03/11/2014 LILA BRICK CHIMNEY SUPERVISOR, BRYAN 296.80 MO BIPOLAR NOS 03/11/2014 LILA BRICK CHIMNEY SUPERVISOR, BRYAN 300.02 AN GEN ANXIETY 03/11/2014 LILA BRICK CHIMNEY SUPERVISOR, BRYAN 314.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 03/11/2014 GEE VYAS DOA K 296.80 MO BIPOLAR NOS 03/11/2014 VYAS GEE CHAPMANA K 300.02 AN GEN ANXIETY 03/11/2014 VYAS GEE CHAPMANA K 314.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 03/11/2014 LILA BRICK CHIMNEY SUPERVISOR, BRYAN 296.80 MO BIPOLAR NOS 03/11/2014 LILA BRICK CHIMNEY SUPERVISOR, BRYAN 300.02 AN GEN ANXIETY 03/11/2014 LILA BRICK CHIMNEY SUPERVISOR, BRYAN 314.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 03/11/2014 LILA BRICK CHIMNEY SUPERVISOR, BRYAN 296.80 MO BIPOLAR NOS 03/11/2014 LILA BRICK CHIMNEY SUPERVISOR, BRYAN 300.02 AN GEN ANXIETY 03/11/2014 LILA BRICK CHIMNEY SUPERVISOR, BRYAN 314.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 03/11/2014 LILA BRICK CHIMNEY SUPERVISOR, BRYAN 296.80 MO BIPOLAR NOS 03/11/2014 LILA BRICK CHIMNEY SUPERVISOR, BRYAN 300.02 AN GEN ANXIETY 03/11/2014 LILA BRICK CHIMNEY SUPERVISOR, BRYAN 314.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 03/11/2014 LILA BRICK CHIMNEY SUPERVISOR, BRYAN 296.80 MO BIPOLAR NOS 03/11/2014 LILA BRICK CHIMNEY SUPERVISOR, BRYAN 300.02 AN GEN ANXIETY 03/11/2014 LILA BRICK CHIMNEY SUPERVISOR, BRYAN 314.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 03/11/2014 LILA BRICK CHIMNEY SUPERVISOR, BRYAN 296.80 MO BIPOLAR NOS 03/11/2014 LILA BRICK CHIMNEY SUPERVISOR, BRYAN 300.02 AN GEN ANXIETY 03/11/2014 LILA BRICK CHIMNEY SUPERVISOR, BRYAN 314.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 03/11/2014 GEE VYAS DOA K 296.80 MO BIPOLAR NOS 03/11/2014 VYAS GEE CHAPMANA K 300.02 AN GEN ANXIETY 03/11/2014 VYAS GEE CHAPMANA K 314.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 03/11/2014 ALVARO VYAS DO K 296.80 MO BIPOLAR NOS 03/11/2014 ASAEL CHAPMAN ALVARO K 300.02 AN GEN ANXIETY 03/11/2014 ASAEL CHAPMAN ALVARO K 314.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 03/11/2014 LILA BRICK CHIMNEY SUPERVISOR, BRYAN 296.80 MO BIPOLAR NOS 03/11/2014 LILA BRICK CHIMNEY SUPERVISOR, BRYAN 300.02 AN GEN ANXIETY 03/11/2014 LILA BRICK CHIMNEY SUPERVISOR, BRYAN 314.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 03/11/2014 LILA BRICK CHIMNEY SUPERVISOR, BRYAN 296.80 MO BIPOLAR NOS 03/11/2014 LILA BRICK CHIMNEY SUPERVISOR, BRYAN 300.02 AN GEN ANXIETY 03/11/2014 LILA BRICK CHIMNEY SUPERVISOR, BRYAN 314.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 03/11/2014 LILA BRICK CHIMNEY SUPERVISOR, RBYAN 296.80 MO BIPOLAR NOS 03/11/2014 LILA BRICK CHIMNEY SUPERVISOR, BRYAN 300.02 AN GEN ANXIETY 03/11/2014 LILA BRICK CHIMNEY SUPERVISOR, BRYAN 314.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 03/11/2014 LILA BRICK CHIMNEY SUPERVISOR, BRYAN 296.80 MO BIPOLAR NOS 03/11/2014 LILA BRICK CHIMNEY SUPERVISOR, BRYAN 300.02 AN GEN ANXIETY 03/11/2014 LILA BRICK CHIMNEY SUPERVISOR, BRYAN 314.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 03/11/2014 LILA BRICK CHIMNEY SUPERVISOR, BRYAN 296.80 MO BIPOLAR NOS 03/11/2014 LILA BRICK CHIMNEY SUPERVISOR, BRYAN 300.02 AN GEN ANXIETY 03/11/2014 LILA BRICK CHIMNEY SUPERVISOR, BRYAN 314.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 05/02/2014 ESAU BERRY DO Ot 250.00 DIAB [place] WO COMPL, TYPE II OR UNSPEC TY 05/02/2014 ESAU BERRY DO Ot 575.11 CHRONIC CHOLECYSTITIS 06/05/2014 LILA BRICK CHIMNEY SUPERVISOR, BRYAN 295.11 P SCHIZO DISORG SUBCHRONIC 06/05/2014 LILA BRICK CHIMNEY SUPERVISOR, BRYAN 295.11 P SCHIZO DISORG SUBCHRONIC 06/05/2014 LILA BRICK CHIMNEY SUPERVISOR, BRYAN 295.11 P SCHIZO DISORG SUBCHRONIC 06/05/2014 LILA BRICK CHIMNEY SUPERVISOR, BRYAN 295.11 P SCHIZO DISORG SUBCHRONIC 06/05/2014 LILA BRICK CHIMNEY SUPERVISOR, BRYAN 295.11 P SCHIZO DISORG SUBCHRONIC 06/05/2014 ALVARO VYAS DO K 295.11 P SCHIZO DISORG SUBCHRONIC 06/05/2014 ALVARO VYAS DO 295.11 P SCHIZO DISORG SUBCHRONIC 06/05/2014 LILA BRICK CHIMNEY SUPERVISOR, BRYAN 295.11 P SCHIZO DISORG SUBCHRONIC 06/05/2014 LILA BRICK CHIMNEY SUPERVISOR, BRYAN 295.11 P SCHIZO DISORG SUBCHRONIC 06/05/2014 LILA BRICK CHIMNEY SUPERVISOR, BRYAN 295.11 P SCHIZO DISORG SUBCHRONIC 06/05/2014 LILA BRICK CHIMNEY SUPERVISOR, BRYAN 295.11 P SCHIZO DISORG SUBCHRONIC 06/05/2014 LILA BRICK CHIMNEY SUPERVISOR, BRYAN 295.11 P SCHIZO DISORG SUBCHRONIC 06/19/2014 TANYA GONZALEZ BRICK CHIMNEY SUPERVISOR Ot 784.0 HEADACHE 07/14/2014 DAX GUERRA, DARRICK Fiore Ot 346.90 MIGRAINE UNSPECIFIED W/O INTRACT MGRN W/ 09/18/2014 ADAIR LUCERO REMEDIATION CONSULTANT Ot 250.00 09/18/2014 ADAIR LUCERO REMEDIATION CONSULTANT Ot V58.67 10/07/2014 ADAIR LUCERO REMEDIATION CONSULTANT Ot 250.00 10/07/2014 ADAIR LUCERO REMEDIATION CONSULTANT Ot V58.67 12/06/2014 OLGA LUCERO MD R [...] 12/06/2014 OLGA LUCERO MD R Ot V06.1 [id number], COMBINED [ 12/06/2014 OLGA LUCERO MD R Ot V58.67 LONG-TERM (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 INSULIN 06/12/2015 GAURANG STANTON DO Ot 339.12 CHRONIC TENSION TYPE HEADACHE 06/12/2015 GAURANG STANTON DO Ot 784.0 HEADACHE 07/30/2015 JAZMINE GUERRA, OLGA R Ot 786.2 08/05/2015 JAZMINE GUERRA, OLGA R Ot 786.2 08/11/2015 JAZMINE GUERRA, OLGA R Ot R19.7 08/19/2015 ADAIR LUCERO REMEDIATION CONSULTANT Ot E11.9 09/01/2015 ADAIR LUCERO REMEDIATION CONSULTANT Ot E11.9 09/23/2015 JAZMINE GUERRA, OLGA R [...] GUERRA, OLGA R Ot 719.7 01/29/2016 TUSHARAFUA REMEDIATION CONSULTANT Ot V58.69 01/29/2016 TUSHARAFUA REMEDIATION CONSULTANT Ot V58.83 01/29/2016 JAZMINE ADAIR Kya REMEDIATION CONSULTANT Ot 250.00 01/29/2016 JAZMINE ADAIR Boland REMEDIATION CONSULTANT Ot 244.9 01/29/2016 LIZZIE LUCEROAN Kya REMEDIATION CONSULTANT Ot 250.00 01/29/2016 JAZMINE GUERRA, OLGA R Ot 571.8 01/29/2016 JAZMINE GUERRA, OLGA R Ot 789.01 01/29/2016 JAZMINE GUERRA, OLGA R Ot 789.01 01/29/2016 JAZMINE GUERRA, OLGA R Ot 793.3 01/29/2016 GOODHUE ESAU CHAPMAN Ot 575.11 01/29/[facility] V72.63 01/29/2016 [facility] V74.8 01/29/2016 JAZMINE ADAIR Kya REMEDIATION CONSULTANT Ot 250.01 01/29/2016 JAZMINE ADAIR Kya REMEDIATION CONSULTANT Ot 250.00 01/29/2016 ADAIR LUCERO REMEDIATION CONSULTANT Ot V58.67 01/29/2016 JAZMINE GUERRA, OLGA R Ot 786.2 01/29/2016 ADAIR LUCERO REMEDIATION CONSULTANT Ot E11.9 01/29/2016 SUYAPA GUERRA, JEAN-CLAUDEAASAHRA Ot [...] THERAPEUTIC DRUG MONITORIN 06/04/2016 Ot 250.00 DIAB [place] WO COMPL, TYPE II OR UNSPEC TY [...] 719.7 DIFFICULTY IN WALKING 06/04/2016 AFUA FINLEY REMEDIATION CONSULTANT Ot V58.69 OT MED,LT,CURRENT USE 06/04/2016 AFUA FINLEY REMEDIATION CONSULTANT Ot V58.83 ENCOUNTER FOR THERAPEUTIC DRUG MONITORIN 06/04/2016 ADAIR LUCERO REMEDIATION CONSULTANT Ot 250.00 DIAB [place] WO COMPL, TYPE II OR UNSPEC TY 06/04/2016 ADAIR LUCERO REMEDIATION CONSULTANT Ot 244.9 HYPOTHYROIDISM NOS 06/04/2016 ADAIR LUCERO REMEDIATION CONSULTANT Ot 250.00 DIAB [place] WO COMPL, TYPE [...] V74.8 SCREEN-BACTERIAL DIS NEC 06/04/2016 ADAIR LUCERO REMEDIATION CONSULTANT Ot 250.01 DIAB [place] WO COMPL, TYPE I [JUVENILE TYP 06/04/2016 ADAIR LUCERO REMEDIATION CONSULTANT Ot 250.00 DIAB [place] WO COMPL, TYPE [...] 719.7 DIFFICULTY IN WALKING 09/23/2016 AFUA FINLEY REMEDIATION CONSULTANT Ot V58.69 OT MED,LT,CURRENT USE 09/23/2016 AFUA FINLEY Ot V58.83 ENCOUNTER FOR THERAPEUTIC DRUG MONITORIN 09/23/2016 ADAIR LUCERO REMEDIATION CONSULTANT Ot 250.00 DIAB [place] WO COMPL, TYPE II OR UNSPEC TY 09/23/2016 ADAIR LUCERO REMEDIATION CONSULTANT Ot 244.9 HYPOTHYROIDISM NOS 09/23/2016 ADAIR LUCERO REMEDIATION CONSULTANT Ot 250.00 DIAB [place] WO COMPL, TYPE [...] TYPE I [JUVENILE TYP 09/23/2016 ADAIR LUCERO REMEDIATION CONSULTANT Ot 250.00 DIAB [place] WO COMPL, TYPE II OR UNSPEC TY 09/23/2016 ADAIR LUCEROP Ot V58.67 LONG-TERM (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 INSULIN 09/23/2016 JAZMINE GUERRA OLGA R Ot 786.2 COUGH 09/23/2016 ADAIR LCUEROP Ot E11.9 TYPE 2 DIABETES MELLITUS WITHOUT [...] DIABETES MELLITUS WITHOUT COMPLIC 09/23/2016 ADAIR LUCERO REMEDIATION CONSULTANT Ot Z79.4 SPACE CONTROL AGENT (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 INSULIN 09/24/2016 ADAIR LUCERO REMEDIATION CONSULTANT Ot E11.9 TYPE 2 DIABETES MELLITUS WITHOUT COMPLIC 09/24/2016 ADAIR LUCEROP Ot Z79.4 SPACE CONTROL AGENT (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 INSULIN 09/29/2016 ADAIR LUCERO REMEDIATION CONSULTANT Ot E11.9 TYPE 2 DIABETES MELLITUS WITHOUT COMPLIC 09/29/2016 ADAIR LUCEROP Ot Z79.4 SPACE CONTROL AGENT (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 INSULIN 10/21/2016 SEGLIE, ADAIR M REMEDIATION CONSULTANT Ot E11.9 TYPE 2 DIABETES MELLITUS WITHOUT COMPLIC 10/21/2016 ADAIR LUCERO REMEDIATION CONSULTANT Ot Z79.4 SHELTER (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 INSULIN 10/26/2016 ADAIR LUCERO REMEDIATION CONSULTANT Ot E11.9 TYPE 2 DIABETES MELLITUS WITHOUT COMPLIC 10/26/2016 ADAIR LUCERO REMEDIATION CONSULTANT Ot Z79.4 SHELTER (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 INSULIN 01/25/2017 FRANCISCO ALAN DO Ot E11.65 TYPE 2 DIABETES MELLITUS WITH HYPERGLYCE 01/25/2017 FRANCISCO ALAN DO Ot Z79.4 SHELTER (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 INSULIN 01/25/2017 FRANCISCO ALAN DO Ot Z79.84 SPACE CONTROL AGENT (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 ORAL HYPOGLYC 01/25/2017 FRANCISCO ALAN DO Ot Z79.899 OTHER SHELTER (CURRENT) DRUG THERAPY 01/26/2017 FRANCISCO ALAN DO Ot E11.65 TYPE 2 DIABETES MELLITUS WITH HYPERGLYCE 01/26/2017 FRANCISCO ALAN DO Ot Z79.4 SPACE CONTROL AGENT (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 INSULIN 01/26/2017 FRANCISCO ALAN DO Ot Z79.84 SPACE CONTROL AGENT (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 ORAL HYPOGLYC 01/26/2017 FRANCISCO ALAN DO Ot Z79.899 OTHER SPACE CONTROL AGENT (CURRENT) DRUG THERAPY 03/24/2017 Ot 250.00 DIAB [...] WITHOUT 05/03/2017 JOHN LEE MD Ot Z79.4 SPACE CONTROL AGENT (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 INSULIN 05/03/2017 JOHN LEE MD Ot Z79.84 SHELTER (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 ORAL HYPOGLYC 05/03/2017 JOHN [...] WITHOUT 05/03/2017 JOHN LEE MD Ot Z79.4 SPACE CONTROL AGENT (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 INSULIN 05/03/2017 JOHN LEE MD Ot Z79.84 SPACE CONTROL AGENT (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 ORAL HYPOGLYC 05/03/2017 JOHN [...] UNSPECIFIED 07/09/2017 IVORY DICKSON MD Ot Z79.4 SHELTER (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 INSULIN 07/09/2017 IVORY DICKSON MD Ot Z79.84 SHELTER (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 ORAL HYPOGLYC 07/09/2017 IVORY [...] 719.7 DIFFICULTY IN WALKING 07/09/2017 AFUA FINLEY REMEDIATION CONSULTANT Ot V58.69 OTH MED,LT,CURRENT USE 07/09/2017 AFUA FINLEY REMEDIATION CONSULTANT Ot V58.83 ENCOUNTER FOR THERAPEUTIC DRUG MONITORIN 07/09/2017 ADAIR LUCERO REMEDIATION CONSULTANT Ot 250.00 DIAB [place] WO COMPL, TYPE II OR UNSPEC TY 07/09/2017 ADAIR LUCERO REMEDIATION CONSULTANT Ot 244.9 HYPOTHYROIDISM NOS 07/09/2017 ADAIR LUCERO REMEDIATION CONSULTANT Ot 250.00 DIAB [place] WO COMPL, TYPE [...] Ot V74.8 SCREEN-BACTERIAL DIS NEC 07/09/2017 ADAIR LCUERO Ot 250.01 DIAB [place] WO COMPL, TYPE [...] WITHOUT COMPLIC 07/09/2017 ADAIR LUCERO Ot Z79.4 SHELTER (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 INSULIN 07/11/2017 IVORY DICKSON [...] TRACT INFECTION, SITE NOT SPECIF 07/11/2017 IVORY DCIKSON MD Ot R73.9 HYPERGLYCEMIA, UNSPECIFIED 07/11/2017 IVORY DICKSON MD Ot Z79.4 SHELTER (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 INSULIN 07/11/2017 IVORY DICKSON MD Ot Z79.84 SPACE CONTROL AGENT (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 ORAL HYPOGLYC 07/11/2017 IVORY [...] PAIN 07/29/2017 IVORY DICKSON MD Ot Z79.4 SPACE CONTROL AGENT (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 INSULIN 07/29/2017 IVORY DICKSON [...] V58.69 OTH MED,LT,CURRENT USE 12/23/2017 AFUA FINLEY REMEDIATION CONSULTANT Ot V58.83 ENCOUNTER FOR THERAPEUTIC DRUG MONITORIN [...] V74.8 SCREEN-BACTERIAL DIS NEC 12/23/2017 ADAIR LUCERO REMEDIATION CONSULTANT Ot 250.01 DIAB [place] WO COMPL, TYPE [...] Ot R19.7 DIARRHEA, UNSPECIFIED 12/23/2017 JAZMINE GUERRA, LOGA R Ot E03.9 HYPOTHYROIDISM, UNSPECIFIED 12/23/2017 OLGA LUCERO MD R Ot E03.9 HYPOTHYROIDISM, UNSPECIFIED 12/23/2017 JAZMINE UGERRA, OLGA R Ot M25.551 PAIN IN RIGHT [...] WITHOUT COMPLIC 12/23/2017 ADAIR LUCERO Ot Z79.4 SHELTER (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 INSULIN 12/23/2017 JAZMINE GUERRA, OLGA R Ot 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, UNSPEC 12/23/2017 TINY ALMENDAREZ BRICK CHIMNEY SUPERVISOR Ot E03.9 HYPOTHYROIDISM, UNSPECIFIED 12/23/2017 TINY ALMENDAREZ BRICK CHIMNEY SUPERVISOR Ot E10.9 TYPE 1 DIABETES MELLITUS WITHOUT COMPLIC 12/27/2017 ROMY DO, GAURANG K Ot E03.9 HYPOTHYROIDISM, UNSPECIFIED 12/27/2017 ROMY DO, GAURANG K Ot E11.9 TYPE 2 DIABETES MELLITUS WITHOUT COMPLIC 12/27/2017 ROMY DO, GAURANG K Ot F17.210 NICOTINE DEPENDENCE, CIGARETTES, UNCOMPL 12/27/2017 ROMY DO, GAURANG K Ot F20.9 SCHIZOPHRENIA, UNSPECIFIED 12/27/2017 ROMY DO, GAURANG K Ot F31.9 BIPOLAR DISORDER, UNSPECIFIED 12/27/2017 ROMY DO, GAURANG K Ot F41.9 ANXIETY DISORDER, UNSPECIFIED 12/27/2017 ROMY DO, GAURANG K Ot F90.9 ATTENTION-DEFICIT HYPERACTIVITY DISORDER 12/27/2017 ROMY DO, GAURANG K Ot G43.909 MIGRAINE, UNSP, NOT INTRACTABLE, WITHOUT 12/27/2017 ORMY DO, GAURANG K Ot K21.9 GASTRO-ESOPHAGEAL REFLUX DISEASE WITHOUT 12/27/2017 ROMY DO, GAURANG K Ot K42.9 UMBILICAL HERNIA WITHOUT OBSTRUCTION OR 12/27/2017 ROMY DO, GAURANG K Ot K59.00 CONSTIPATION, UNSPECIFIED 12/27/2017 ROMY DO, GAURANG K Ot R10.10 UPPER ABDOMINAL PAIN, UNSPECIFIED 12/27/2017 ROMY DO, GAURANG K Ot Z79.4 SPACE CONTROL AGENT (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 INSULIN 12/27/2017 ROMY DO, GAURANG K Ot Z79.52 SHELTER (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 SYSTEMIC STER 12/27/2017 ROMY DO, GAURANG K Ot Z88.0 ALLERGY STATUS TO PENICILLIN 12/27/2017 ROMY DO, GAURANG K Ot Z88.1 ALLERGY STATUS TO OTHER ANTIBIOTIC AGENT 12/27/2017 ROMY DO, GAURANG K Ot Z90.49 ACQUIRED ABSENCE OF OTHER SPECIFIED PART 12/27/2017 TINY ALMENDAREZ BRICK CHIMNEY SUPERVISOR Ot E03.9 HYPOTHYROIDISM, UNSPECIFIED 12/27/2017 TINY ALMENDAREZ BRICK CHIMNEY SUPERVISOR Ot E10.9 TYPE 1 DIABETES MELLITUS WITHOUT COMPLIC 12/27/2017 TINY ALMENDAREZ BRICK CHIMNEY SUPERVISOR Ot R42 DIZZINESS AND GIDDINESS 12/29/2017 ROMY DO, GAURANG K Ot E03.9 HYPOTHYROIDISM, UNSPECIFIED 12/29/2017 ROMY DO, GAURANG K Ot E11.9 TYPE 2 DIABETES MELLITUS WITHOUT COMPLIC 12/29/2017 ROMY DO, GAURANG K Ot F17.210 NICOTINE DEPENDENCE, CIGARETTES, UNCOMPL 12/29/2017 ROMY DO, GAURANG K Ot F20.9 SCHIZOPHRENIA, UNSPECIFIED 12/29/2017 ROMY DO, GAURANG K Ot F31.9 BIPOLAR DISORDER, UNSPECIFIED 12/29/2017 ROMY DO, GAURANG K Ot F41.9 ANXIETY DISORDER, UNSPECIFIED 12/29/2017 ROMY DO, GAURANG K Ot F90.9 ATTENTION-DEFICIT HYPERACTIVITY DISORDER 12/29/2017 ROMY DO, GAURANG K Ot G43.909 MIGRAINE, UNSP, NOT INTRACTABLE, WITHOUT 12/29/2017 ROMY DO, GAURANG K Ot K21.9 GASTRO-ESOPHAGEAL REFLUX DISEASE WITHOUT 12/29/2017 ROMY DO, GAURANG K Ot K42.9 UMBILICAL HERNIA WITHOUT OBSTRUCTION OR 12/29/2017 ROMY DO, GAURANG K Ot K59.00 CONSTIPATION, UNSPECIFIED 12/29/2017 ROMY , GAURANG K Ot R10.10 UPPER ABDOMINAL PAIN, UNSPECIFIED 12/29/2017 ROMY , GAURANG K Ot Z79.4 SPACE CONTROL AGENT (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 INSULIN 12/29/2017 ROMY , GAURANG K Ot Z79.52 SHELTER (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 SYSTEMIC STER 12/29/2017 ROMY , GAURANG K Ot Z88.0 ALLERGY STATUS TO PENICILLIN 12/29/2017 ROMY , GAURANG K Ot Z88.1 ALLERGY STATUS TO OTHER ANTIBIOTIC AGENT 12/29/2017 ROMY , GAURANG K Ot Z90.49 ACQUIRED ABSENCE OF OTHER SPECIFIED PART 01/13/2018 TINY ALMENDAREZ APRN Ot E03.9 HYPOTHYROIDISM, UNSPECIFIED 01/13/2018 TINY ALMENDAREZ APRN Ot E10.9 TYPE 1 DIABETES MELLITUS WITHOUT COMPLIC 01/13/2018 TINY ALMENDAREZ APRN Ot R42 DIZZINESS AND GIDDINESS 01/30/2018 INDY MCCLAIN MD, Ot E03.9 HYPOTHYROIDISM, UNSPECIFIED 01/30/2018 INDY MCCLAIN MD Ot E11.9 TYPE 2 DIABETES MELLITUS WITHOUT COMPLIC 01/30/2018 INDY MCCLAIN MD, Ot E66.9 OBESITY, UNSPECIFIED 01/30/2018 INDY MCCLAIN MD Ot E83.42 HYPOMAGNESEMIA 01/30/2018 INDY MCCLAIN MD, Ot E87.6 HYPOKALEMIA 01/30/2018 INDY MCCLAIN MD Ot F17.210 NICOTINE DEPENDENCE, CIGARETTES, UNCOMPL 01/30/2018 INDY MCCLAIN MD, Ot F20.9 SCHIZOPHRENIA, UNSPECIFIED 01/30/2018 INDY MCCLAIN MD, Ot F32.9 MAJOR DEPRESSIVE DISORDER, SINGLE EPISOD 01/30/2018 INDY MCCLAIN MD, Ot F41.9 ANXIETY DISORDER, UNSPECIFIED 01/30/2018 INDY MCCLAIN MD, Ot F90.9 ATTENTION-DEFICIT HYPERACTIVITY DISORDER 01/30/2018 INDY MCCLAIN MD, Ot K21.9 GASTRO-ESOPHAGEAL REFLUX DISEASE WITHOUT 01/30/2018 INDY MCCLAIN MD, Ot N39.0 URINARY TRACT INFECTION, SITE NOT SPECIF 01/30/2018 INDY MCCLAIN MD, Ot R45.851 SUICIDAL IDEATIONS 01/30/2018 INDY MCCLAIN MD Ot Z68.32 BODY MASS INDEX (BMI) 32.0-32.9, ADULT 01/30/2018 INDY MCCLAIN MD Ot Z79.4 SHELTER (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 INSULIN 01/30/2018 INDY MCCLAIN MD Ot Z79.899 OTHER SPACE CONTROL AGENT (CURRENT) DRUG THERAPY Procedures Code Description [place] [address] THERAPUTIC INJ SQ/IM 12/13/2012 31425 THERAPUTIC INJ SQ/IM 01/16/2013 37711 THERAPUTIC INJ SQ/IM 01/16/2013 76226 PSYCH PHARM MGMT 01/26/2013 76574 THERAPUTIC INJ SQ/IM 02/09/2013 10327 THERAPUTIC INJ SQ/IM 03/12/2013 24211 THERAPUTIC INJ SQ/IM 03/12/2013 58091 THERAPUTIC INJ SQ/IM 04/10/2013 J1631 Haldol Decanoate 100 mg/mL Solution 04/11/2013 16179 THERAPUTIC INJ SQ/IM 06/12/2013 67761 THERAPUTIC INJ SQ/IM 07/18/2013 48887 CMP 11/27/2013 37960 LIPID PANEL 11/27/2013 47079 IMIPRAMINE 11/27/2013 13425 CBC 11/27/2013 55282 THERAPUTIC INJ SQ/IM 01/10/2014 45.16 ESOPHAGOGASTRODUODENOSCOPY [ EGD] W/CLOSE 02/07/2014 06494 THERAPUTIC INJ SQ/IM 02/08/2014 34975 THERAPUTIC INJ SQ/IM 04/05/2014 65710 THERAPUTIC INJ SQ/IM 05/07/2014 38114 THERAPUTIC INJ SQ/IM 06/05/2014 29024 THERAPUTIC INJ SQ/IM 06/05/2014 83452 IMMUNOTHERAPY, ONE INJECTION 07/01/2014 69781 THERAPUTIC INJ SQ/IM 07/09/2014 56014 THERAPUTIC INJ SQ/IM 08/07/2014 42520 THERAPUTIC INJ SQ/IM 09/06/2014 07640 THERAPUTIC INJ SQ/IM 10/10/2014 99708 THERAPUTIC INJ SQ/IM 11/07/2014 47138 THERAPUTIC INJ SQ/IM 01/15/2015 Results Test Result [...] culture - 05/25/16 22:45 Bacterial urine culture [id number] NRG COLONY COUNT <10,000 NRG FTX;REPORTABLE SENSITIVITIES REPORTED AT 0742, 06-01-16 [facility] Bacterial susceptibility panel - 05/25/16 22:45 Gentamicin [...] susceptibility test by minimum inhibitory concentration - [facility] Bacterial susceptibility panel - 08/02/16 22:45 Gentamicin susceptibility test by minimum inhibitory [...] susceptibility test by minimum inhibitory concentration 2 NR Comprehensive metabolic panel - 09/23/16 14:56 Serum [...] Automated blood platelet mean volume measurement 11.2 [z_us] 7.4-10.4 Automated blood neutrophils/100 leukocytes 50 % [...] measurement by glucometer (mass/volume) 341 mg/dL 70-110 LIPID PANEL - 06/20/17 15:03 Cholesterol, Total [...] IU/L 0-40 ALT (SGPT) 26 IU/L 0-32 CBC With Differential/Platelet - 06/20/17 15:03 WBC [...] - 06/20/17 15:03 Prolactin 148.6 ng/mL 4.8-23.3 Capillary blood glucose measurement by glucometer (mass/volume) [...] erythrocyte count by microscopy (number/high power field) [facility] NR Automated urine sediment leukocyte count by microscopy [...] microscopy FEW NRG Bacterial urine culture - 01/29/18 01:58 URINE CULTURE RESULTS MORE THAN 3 ISOLATES NRG Serum or plasma potassium measurement (moles/volume) - 01/29/18 05:30 Serum or plasma potassium measurement (moles/volume) 2.6 mmol/L 3.6-5.0 Capillary blood glucose measurement by glucometer (mass/volume) - 01/29/18 05: 31 Capillary blood glucose measurement by glucometer (mass/volume) 69 mg/dL 70-110 Capillary blood glucose measurement by glucometer (mass/volume) - 01/29/18 07: 36 Capillary blood glucose measurement by glucometer (mass/volume) 172 mg/dL 70-110 Whole blood basic metabolic panel - 01/29/18 11:04 Serum or plasma sodium measurement (moles/volume) 137 mmol/L 135-145 Serum or plasma potassium measurement (moles/volume) 3.5 mmol/L 3.6-5.0 Serum or plasma chloride measurement (moles/volume) 110 mmol/L 98-107 Carbon dioxide 21 mmol/L 21-32 Serum or plasma anion gap determination (moles/volume) 6 mmol/L 5-14 Serum or plasma urea nitrogen measurement (mass/volume) 18 mg/dL 7-18 Serum or plasma creatinine measurement (mass/volume) 0.74 mg/dL 0.60-1.30 Serum or plasma urea nitrogen/creatinine mass ratio 24 NRG Serum or plasma creatinine measurement with calculation of estimated glomerular filtration rate > NRG Serum or plasma glucose measurement (mass/volume) 212 mg/dL 70-105 Serum or plasma calcium measurement (mass/volume) 9.0 mg/dL 8.5-10.1 Magnesium - 01/29/18 11:04 Magnesium 1.8 mg/dL 1.8-2.4 Capillary blood glucose measurement by glucometer (mass/volume) - 01/29/18 12: 16 Capillary blood glucose measurement by glucometer (mass/volume) 203 mg/dL 70-110 Capillary blood glucose measurement by glucometer (mass/volume) - 01/29/18 16: 12 Capillary blood glucose measurement by glucometer (mass/volume) 261 mg/dL 70-110 Capillary blood glucose measurement by glucometer (mass/volume) - 01/29/18 20: 00 Capillary blood glucose measurement by glucometer (mass/volume) 242 mg/dL 70-110 Complete blood count (CBC) with automated white blood cell (WBC) differential - 01/30/18 04:25 Blood leukocytes automated count (number/volume) 10.0 10*3/uL 4.3-11.0 Blood erythrocytes automated count (number/volume) 4.84 10*6/uL 4.35-5.85 Venous blood hemoglobin measurement (mass/volume) 14.4 g/dL 11.5-16.0 Blood hematocrit (volume fraction) 41 % 35-52 Automated erythrocyte mean corpuscular volume 85 [foz_us] 80-99 Automated erythrocyte mean corpuscular hemoglobin (mass per erythrocyte) 30 pg 25-34 Automated erythrocyte mean corpuscular hemoglobin concentration measurement ( mass/volume) 35 g/dL 32-36 Automated erythrocyte distribution width ratio 13.8 % 10.0-14.5 Automated blood platelet count (count/volume) 225 10*3/uL 130-400 Automated blood platelet mean volume measurement 10.9 [foz_us] 7.4-10.4 Automated blood neutrophils/100 leukocytes 44 % 42-75 Automated blood lymphocytes/100 leukocytes 43 % 12-44 Blood monocytes/100 leukocytes 8 % 0-12 Automated blood eosinophils/100 leukocytes 4 % 0-10 Automated blood basophils/100 leukocytes 1 % 0-10 Blood neutrophils automated count (number/volume) 4.4 10*3 1.8-7.8 Blood lymphocytes automated count (number/volume) 4.3 10*3 1.0-4.0 Blood monocytes automated count (number/volume) 0.8 10*3 0.0-1.0 Automated eosinophil count 0.4 10*3/uL 0.0-0.3 Automated blood basophil count (count/volume) 0.1 10*3/uL 0.0-0.1 Comprehensive metabolic panel - 01/30/18 04:25 Serum or plasma sodium measurement (moles/volume) 139 mmol/L 135-145 Serum or plasma potassium measurement (moles/volume) 4.0 mmol/L 3.6-5.0 Serum or plasma chloride measurement (moles/volume) 111 mmol/L 98-107 Carbon dioxide 19 mmol/L 21-32 Serum or plasma anion gap determination (moles/volume) 9 mmol/L 5-14 Serum or plasma urea nitrogen measurement (mass/volume) 16 mg/dL 7-18 Serum or plasma creatinine measurement (mass/volume) 0.74 mg/dL 0.60-1.30 Serum or plasma urea nitrogen/creatinine mass ratio 22 NRG Serum or plasma creatinine measurement with calculation of estimated glomerular filtration rate > NRG Serum or plasma glucose measurement (mass/volume) 113 mg/dL 70-105 Serum or plasma calcium measurement (mass/volume) 9.0 mg/dL 8.5-10.1 Serum or plasma total bilirubin measurement (mass/volume) 0.4 mg/dL 0.1-1.0 Serum or plasma alkaline phosphatase measurement (enzymatic activity/volume) 100 U/L 40-136 Serum or plasma aspartate aminotransferase measurement (enzymatic activity/ volume) 18 U/L 5-34 Serum or plasma alanine aminotransferase measurement (enzymatic activity/volume ) 26 U/L 0-55 Serum or plasma protein measurement (mass/volume) 6.0 g/dL 6.4-8.2 Serum or plasma albumin measurement (mass/volume) 3.8 g/dL 3.2-4.5 Magnesium - 01/30/18 04:25 Magnesium 1.7 mg/dL 1.8-2.4 Capillary blood glucose measurement by glucometer (mass/volume) - 01/30/18 05: 40 Capillary blood glucose measurement by glucometer (mass/volume) 123 mg/dL 70-110 Capillary blood glucose measurement by glucometer (mass/volume) - 01/30/18 12: 26 Capillary blood glucose measurement by glucometer (mass/volume) 129 mg/dL 70-110 Encounters ACCT No. Visit Date/Time Discharge Status Pt. Type Provider Facility Loc./Unit Complaint [id number] 02/19/2015 10:39:00 02/19/2015 23:59:59 CLS Outpatient RBYAN SHARP APRN [id number] 01/15/2015 15:46:00 01/15/2015 23:59:59 CLS Outpatient BRYAN SHARP APRN [id number] 12/31/2014 09:36:00 12/31/2014 23:59:59 CLS Outpatient BRYAN SHARP APRN [id number] 11/21/2014 14:43:00 11/21/2014 23:59:59 CLS Outpatient BRYAN SHARP APRN [id number] 11/07/2014 15:40:00 11/07/2014 23:59:59 CLS Outpatient BRYAN SHARP APRN [id number] 10/09/2014 15:00:00 10/09/2014 23:59:59 CLS Outpatient ALVARO VYAS DO [id number] 09/06/2014 15:25:00 09/06/2014 23:59:59 CLS Outpatient ALVARO VYAS DO [id number] 08/16/2014 15:48:00 08/16/2014 23:59:59 CLS Outpatient BRYAN SHARP APRN [id number] 08/07/2014 14:18:00 08/07/2014 23:59:59 CLS Outpatient BRYAN SHARP APRN [id number] 07/19/2014 09:53:00 07/19/2014 23:59:59 CLS Outpatient BRYAN SHARP APRN [id number] 07/09/2014 15:39:00 07/09/2014 23:59:59 CLS Outpatient BRYAN SHARP APRN [id number] 06/18/2014 16:04:00 06/18/2014 23:59:59 CLS Outpatient LILA BRICK CHIMNEY SUPERVISORBRYAN [id number] 06/05/2014 15:45:00 06/05/2014 23:59:59 CLS Outpatient ALVARO VYAS DO [id number] 05/16/2014 16:35:00 05/16/2014 23:59:59 CLS Outpatient LILA BRICK CHIMNEY SUPERVISOR, BRYAN [id number] 05/07/2014 11:39:00 05/07/2014 23:59:59 CLS Outpatient LILA BRICK CHIMNEY SUPERVISOR, BRYAN [id number] 04/18/2014 14:58:00 04/18/2014 23:59:59 CLS Outpatient LILA BRICK CHIMNEY SUPERVISOR, BRYAN [id number] 04/05/2014 10:34:00 04/05/2014 23:59:59 CLS Outpatient ALVARO VYAS DO [id number] 2014 14:23:00 2014 23:59:59 CLS Outpatient LILA BRICK CHIMNEY SUPERVISOR, BRYAN [id number] 2014 14:23:00 2014 23:59:59 CLS Outpatient LILA BRICK CHIMNEY SUPERVISOR, BRYAN [id number] 03/11/2014 12:20:00 03/11/2014 23:59:59 CLS Outpatient FINLEY BRICK CHIMNEY SUPERVISORAFUA [id number] 02/08/2014 08:25:00 02/08/2014 23:59:59 CLS Outpatient FINLEY BRICK CHIMNEY SUPERVISORAFUA [id number] 01/10/2014 10:55:00 01/10/2014 23:59:59 CLS Outpatient FINLEY BRICK CHIMNEY SUPERVISORAFUA [id number] 12/10/2013 17:22:00 12/10/2013 23:59:59 CLS Outpatient FINLEY BRICK CHIMNEY SUPERVISORAFUA [id number] 09/25/2013 13:29:00 09/25/2013 23:59:59 CLS Outpatient FINLEY BRICK CHIMNEY SUPERVISORAFUA [id number] 09/03/2013 16:40:00 09/03/2013 23:59:59 CLS Outpatient FINLEY BRICK CHIMNEY SUPERVISORAFUA [id number] 08/20/2013 13:43:00 08/20/2013 23:59:59 CLS Outpatient FINLEY BRICK CHIMNEY SUPERVISORAFUA [id number] 07/18/2013 08:54:00 07/18/2013 23:59:59 CLS Outpatient FINLEY BRICK CHIMNEY SUPERVISOR, AFUA ANDREIA [id number] 07/12/2013 16:28:00 07/12/2013 23:59:59 CLS Outpatient AFUA FINLEY APRN [id number] 01/19/2013 15:27:00 01/19/2013 23:59:59 CLS Outpatient AFUA FINLEY APRN [id number] 01/16/2013 13:38:00 01/16/2013 23:59:59 CLS Outpatient [id number] 12/29/2012 09:32:00 12/29/2012 23:59:59 CLS Outpatient AFUA FINLEY APRN [id number] 12/13/2012 14:41:00 12/13/2012 23:59:59 CLS Outpatient [id number] 11/20/2012 10:07:00 11/20/2012 23:59:59 CLS Outpatient AFUA FINLEY APRN [id number] 09/11/2012 09:21:00 09/11/2012 23:59:59 CLS Outpatient AFUA FINLEY APRN [id number] 06/22/2013 15:42:00 Document Registration [id number] 06/15/2013 06:58:00 Document Registration [id number] 04/10/2013 10:26:00 Document Registration [id number] 03/12/2013 11:15:00 Document Registration [id number] 02/26/2013 13:42:00 Document Registration [id number] 02/09/2013 16:13:00 Document Registration [id number] 02/05/2013 07:59:00 Document Registration [id number] 02/27/2018 09:40:00 02/27/2018 23:59:59 CLS Outpatient Samia Lucero [facility] [id number] 11/18/2017 09:20:00 Document Registration [id number] 06/20/2017 15:00:00 Document Registration [id number] 06/21/2017 08:36:00 Document Registration [id number] 07/28/2015 08:25:02 ACT Document Registration [id number] 01/29/2018 06:20:00 01/30/2018 16:20:00 DIS Inpatient JOHNY GUERRA, INDY Boland [facility] ICU SUICIDAL IDEATION, HYPOKALEMIA,HYPOMAGNESEMIA [id number] 12/27/2017 01:47:00 12/27/2017 05:59:00 DIS Emergency GAURANG STANTON DO [facility] ER SEVERE ABD PAIN,DIZZY [id number] 12/23/2017 10:31:00 12/23/2017 23:59:59 CLS Outpatient TANESHA TINY Reinoso APRN [facility] LAB E03.9 [id number] 08/08/2017 17:48:00 08/08/2017 23:59:59 CLS Outpatient OLGA LUCERO MD [facility] RAD ELEVATED PROLACTIC LEVEL E22.9 [id number] 07/29/2017 01:06:00 07/29/2017 02:20:00 DIS Emergency IVORY DICKSON MD [facility] ER LOWER BACK PAIN [id number] 07/09/2017 17:13:00 07/09/2017 19:49:00 DIS Emergency IVORY DICKSON MD [facility] ER HIGH BLOOD SUGAR, HEADACHE [id number] 05/02/2017 23:40:00 05/03/2017 04:00:00 DIS Emergency JOHN LEE MD [facility] ER EYE PAIN,FEELS LIKE NEEDLES IN EYES [id number] 01/25/2017 00:51:00 01/25/2017 02:52:00 DIS Emergency FRANCISCO ALAN DO [facility] ER HIGH BLOOD SUGAR 503 [id number] 09/23/2016 14:39:00 09/23/2016 23:59:59 CLS Outpatient ADAIR LUCERO [facility] LAB DIABETES,INSULIN DEPENDENT [id number] 06/04/2016 15:00:00 06/04/2016 23:59:59 CLS Outpatient OLGA LUCERO MD [facility] RAD LUMBAR PAIN,R HIP PAIN [id number] 05/25/2016 22:15:00 05/25/2016 23:33:00 DIS Emergency GAURANG STANTON DO [facility] ER LOWER BACK PAIN [id number] 01/29/2016 11:47:00 01/29/2016 23:59:59 CLS Outpatient OLGA LUCERO MD [facility] LAB [id number] 11/17/2015 10:20:00 11/17/2015 23:59:59 CLS Outpatient OLGA LUCERO MD [facility] LAB HYPOTHYROID [id number] 11/12/2015 08:59:00 11/12/2015 12:00:00 DIS Outpatient TREVIN DALE MD [facility] SDC CHANGE IN BOWEL HABIT [id number] 11/10/2015 05:36:00 11/10/2015 23:59:59 CLS Outpatient TREVIN DALE MD [facility] PREOP SCREENING [id number] 11/06/2015 00:09:00 11/06/2015 23:59:59 CLS Preadmit OLGA LUCERO MD [facility] LAB DIARRHEA [id number] 08/11/2015 06:00:00 11/05/2015 00:01:00 DIS Outpatient OLGA LUCERO MD [facility] LAB DIARRHEA [id number] 10/11/2015 09:54:00 10/11/2015 11:56:00 DIS Emergency DARRICK VERDUZCO MD [facility] ER MIGRAINE [id number] 07/28/2015 08:22:00 07/28/2015 23:59:59 CLS Outpatient ADAIR LUCERO [facility] LAB DM11 [id number] 07/08/2015 11:07:00 07/08/2015 23:59:59 CLS Outpatient OLGA LUCERO MD [facility] RAD PERSISTANT COUGH [id number] 06/12/2015 20:47:00 06/12/2015 23:13:00 DIS Emergency GAURANG STANTON DO [facility] ER BARAJAS [id number] 12/04/2014 18:15:00 12/06/2014 11:50:00 DIS Inpatient OLGA LUCERO MD [facility] 4TH SUICIDAL IDEATION; DEPRESSION;SCHIZOPHRENIA;UTI; [id number] 08/23/2014 08:56:00 08/23/2014 23:59:59 CLS Outpatient ADAIR LUCERO [facility] LAB DIABETES-INSULIN DEPENDANT [id number] 07/14/2014 02:29:00 07/14/2014 04:00:00 DIS Emergency DARRICK VERDUZCO MD [facility] ER MIGRAINE [id number] 06/19/2014 21:16:00 06/19/2014 22:49:00 DIS Emergency TANYA GONZALEZ APRN [facility] ER HEADACHE [id number] 05/23/2014 12:03:00 05/23/2014 23:59:59 CLS Outpatient ADAIR LUCERO [facility] LAB DIABETES [id number] 05/02/2014 06:12:00 05/02/2014 15:55:00 DIS [facility] CHOLECYSTITIS [id number] 04/30/2014 08:30:00 04/30/2014 23:59:59 CLS Outpatient ESAU BERRY DO [facility] PREOP CHRONIC CHOLECYSTITIS [id number] 04/09/2014 09:46:00 04/09/2014 23:59:59 CLS Outpatient OLGA LUCERO MD [facility] CARD RUQ PAIN [id number] 04/03/2014 11:17:00 04/03/2014 23:59:59 CLS Outpatient OLGA LUCERO MD [facility] RAD RUQ PAIN [id number] 02/28/2014 11:50:00 02/28/2014 23:59:59 CLS Outpatient ADAIR LUCERO [facility] LAB DIABETES [id number] 02/06/2014 15:47:00 02/07/2014 18:50:00 DIS Inpatient OLGA LUCERO MD [facility] 4TH HEMADEMESIS, TM [id number] 02/04/2014 23:07:00 02/05/2014 00:24:00 DIS Emergency MILLICENT BHATTI MD [facility] ER MIGRAINE [id number] 01/11/2014 10:23:00 01/11/2014 23:59:59 CLS Outpatient ADAIR LUCERO [facility] LAB DIABETES [id number] 11/27/2013 10:06:00 11/27/2013 23:59:59 CLS Outpatient AFUA FINLEY [facility] LAB MEDICATION-HIGH RISK [id number] 11/17/2013 11:06:00 11/17/2013 15:25:00 DIS Emergency GAURANG STANTON DO [facility] ER DEPRESSION SUICIDAL THOUGHTS [id number] 09/06/2013 21:08:00 09/07/2013 00:18:00 DIS Emergency DARRICK VERDUZCO MD [facility] ER ELEVATED BLOOD SUGAR [id number] 09/06/2013 13:55:00 09/06/2013 23:59:59 CLS Outpatient OLGA LUCERO MD [facility] RAD PAIN W/WALKING [id number] 08/07/2013 13:32:00 08/07/2013 23:59:59 CLS Outpatient OLGA LUCERO MD [facility] RAD L Q PAIN [id number] 08/06/2013 15:36:00 08/06/2013 23:59:59 CLS Outpatient OLGA LUCERO MD [facility] LAB L Q PAIN [id number] 05/18/2013 16:42:00 05/18/2013 22:49:00 DIS Emergency SERGIO GERARD [facility] ER SUICIDIAL IDEATION [id number] 01/29/2016 11:45:00 Document Registration [id number] 02/10/2013 06:25:00 Document Registration [id number] 02/08/2013 11:58:00 Document Registration [id number] 11/08/2012 13:41:00 Document Registration [id number] 08/02/2012 14:50:00 Document Registration [id number] 02/08/2012 22:00:00 Document Registration [id number] 12/27/2011 13:01:00 Document Registration [id number] 12/15/2011 12:51:00 Document Registration [id number] 09/07/2011 22:42:00 Document Registration [id number] 03/19/2011 20:21:00 Document Registration [id number] 02/11/2011 15:16:00 Document Registration [id number] 12/11/2010 13:19:00 Document Registration [id number] 12/10/2010 13:05:00 Document Registration [id number] 11/07/2010 21:58:00 Document Registration [id number] 11/01/2010 22:32:00 Document Registration
== END 2018-03-12 09:52 | disposition home or self-care (01) ==
LOC: EDUNIT# 08:19 → ER 08:21
DX: N39.0 Urinary tract infection, site not specified (principal); G43.909 Migraine, unspecified, not intractable, without status migrainosus; K21.9 Gastro-esophageal reflux disease without esophagitis; E11.9 Type 2 diabetes mellitus without complications; E03.9 Hypothyroidism, unspecified; E66.9 Obesity, unspecified; F90.9 Attention-deficit hyperactivity disorder, unspecified type; F41.9 Anxiety disorder, unspecified; F32.9 Major depressive disorder, single episode, unspecified; F20.9 Schizophrenia, unspecified; F60.9 Personality disorder, unspecified; F17.210 Nicotine dependence, cigarettes, uncomplicated; Z91.5 Personal history of self-harm; Z68.31 Body mass index [BMI] 31.0-31.9, adult; Z90.49 Acquired absence of other specified parts of digestive tract; Z79.4 Long term (current) use of insulin; Z88.0 Allergy status to penicillin; Z88.1 Allergy status to other antibiotic agents
CPT/HCPCS: 36415; 81000; 84703; 85025; 87088; 99283

== ENCOUNTER 2018-05-03 00:10 | Emergency (ER) | payer MEDICARE, MEDICAID ==
[~2018-05-03] VITALS: Ht 165.1 cm; Wt 86.7 kg
[~2018-05-03 00:10] MED LIST changes: +CYPR4TAB41 PO; +TRAZ-190; -TRAZ100T92
--- NOTE | 2018-05-03 00:40 | ED Psychosocial ---
General Chief Complaint: Psych/Social Disorder Stated Complaint: PSYCH Nursing Triage Note: PT REPORTS INCREASED AGGITATION, SUICIDAL X3 WEEKS. REPORTS TRYING TO HANG SELFT WITH BELT 05/01/18 ET. CUTTING BEHAVIOR TO RIGHT ARM 05/02/18 Source: patient Exam Limitations: no limitations History of Present Illness Date Seen by Provider: May 03, 2018 Time Seen by Provider: 00:20 Initial Comments Here with suicidal ideations over the last couple of weeks that has worsened. States that she tried to hang herself the other day (2-3 days ago) but couldn't go through with it because she couldn't breathe. Also reports increased cutting and has a 10 x 15 cm patch of vertical superficial cuts to the right shoulder. She states these were done with the X-Acto knife and all are superficial. Has attempted suicide in the past. Has long history of mental health disorders. Denies taking anything recently except for her prescribed meds as prescribed. Timing/Duration: week, getting worse Severity: moderate, severe Associated Symptoms: anxiety, suicidal ideation Allergies and Home Medications Allergies Coded Allergies: amoxicillin (Unverified Allergy, Severe, sob, rash, 11/01/10) Penicillins (Verified Adverse Reaction, Severe, RASH, 12/14/05) cefuroxime (Verified Adverse Reaction, Severe, RASH, 12/14/05) clarithromycin (Unverified Adverse Reaction, Mild, nausea and dizziness, ) Home Medications Albuterol Sulfate 18 Gm Hfa.aer.ad, 2 PUFF IH Q6H PRN for SHORTNESS OF BREATH, ( Reported) Aripiprazole 2 Mg Tablet, 2 MG PO DAILY, (Reported) Guanfacine HCl 1 Mg Tab.er.24h, 1 MG PO HS, (Reported) Insulin Aspart 300 Units/3 Ml Solution, 25 UNITS SQ AC, (Reported) Insulin Detemir 100 Unit/1 Ml Insuln.pen, 67 UNITS SQ HS, (Reported) Lorazepam 1 Mg Tablet, 1 MG PO DAILY PRN for ANXIETY, (Reported) Metformin HCl 1,000 Mg Tablet, 1,000 MG PO BID, (Reported) Quetiapine Fumarate 200 Mg Tablet, 200 MG PO HS, (Reported) Topiramate 100 Mg Tablet, 150 MG PO BID, (Reported) TAKES 1 & 1/2 OF A (100 MG) TABLET Patient Home Medication List Home Medication List Reviewed: Yes Constitutional: see HPI; No chills, No fever EENTM: no symptoms reported Respiratory: No cough, No short of breath Cardiovascular: No chest pain, No edema Gastrointestinal: No nausea, No vomiting Genitourinary: no symptoms reported Skin: see HPI, lesions All Other Systems Reviewed Negative Unless Noted: Yes Past Duezjwp-Ebarmu-Bstaip Hx Past Med/Social Hx: Reviewed Nursing Past Med/Soc Hx Patient Social History Alcohol Use: Occasionally Uses Number of Drinks Today: AA Alcohol Beverage of Choice: Beer Recreational Drug Use: No Smoking Status: Current Everyday Smoker Type Used: Cigarettes 2nd Hand Smoke Exposure: Yes Recent Foreign Travel: No Contact w/Someone Who Travel: No Recent Infectious Disease Expo: No Recent Hopitalizations: No Physical Abuse: No Sexual Abuse: No Mistreated: No Fear: No Immunizations Up To Date Tetanus Booster (TDap): Less than 5yrs Date of Pneumonia Vaccine: Oct 24, 2010 Date of Influenza Vaccine: Aug 30, 2015 Seasonal Allergies Seasonal Allergies: Yes Past Medical History Surgeries: Yes (EGD, RIGHT HIP SURGERY CHILD FOR UNKNOWN REASON) Appendectomy, Eye Surgery, Gallbladder, Orthopedic Respiratory: No Cardiac: No Neurological: Yes Headaches /Migraines : No Reproductive Disorders: No Female Reproductive Disorders: Denies Sexually Transmitted Disease: No HIV/AIDS: No Genitourinary: Yes UTI-Chronic Gastrointestinal: Yes Gastroesophageal Reflux Musculoskeletal: No Endocrine: Yes (INSULIN + ORAL MEDICATIONS; OBESITY) Diabetes, Insulin dep, Hypothyroidsim HEENT: No Loss of Vision: Bilateral Hearing Impairment: Denies Cancer: No Psychosocial: Yes (EXTENSIVE PSYCH ISSUES) Suicide Attempts, Bipolar Nursing Suicide Risk Score: 7 Integumentary: No Blood Disorders: No Family Medical History Reviewed Nursing Family Hx Family history: Allergy 03 MOTHER 09 BROTHER Family history: Arthritis 03 MOTHER Family history: Asthma 09 BROTHER 09 SISTER Family history: Cardiovascular disease 03 FATHER ("TAKES MEDICATION FOR HIS HEART") Family history: Diabetes mellitus 03 FATHER Family history: Hypertension 03 MOTHER Hypercholesterolemia 03 MOTHER Psychosocial problem 09 SISTER (DEPRESSION) Psychotic disorder 09 SISTER (ANXIETY) No Family History of: Abdominal aortic aneurysm Hamlin's disease Alcoholism Aphasia Cancer Cancer of colon Cataract Chest pain Congenital heart disease Congestive heart failure Cystic fibrosis Dementia Dysphagia Family history: Alzheimer's disease Family history: Breast disease Family history: Coronary thrombosis Family history: Gastrointestinal disease Family history: Glaucoma Family history: Osteoporosis Family history: Thyroid disorder Headache Hearing loss Heart disease Hereditary disease History of - anemia History of - disorder History of - respiratory disease History of drug abuse Human immunodeficiency virus (HIV) seropositivity Infertile Kidney disease Malignant neoplasm of lung Myocardial infarction Parkinson's disease Prostate cancer Seizure disorder Stroke Tuberculosis Visual impairment Physical Exam Vital Signs - First Documented 05/03/18 00:25 Temp 97.5 Pulse 116 Resp 18 B/P (MAP) 145/86 (105) Pulse Ox 98 O2 Delivery Room Air Capillary Refill : Less Than 3 Seconds Height, Weight, BMI Height: 5', 5.00" Weight: 191lbs 4.0oz, 86.685993va Method:Stated ,32.1BMI General Appearance: WD/WN, no apparent distress HEENT: PERRL/EOMI, pharynx normal Neck: full range of motion, supple Respiratory: lungs clear, normal breath sounds Cardiovascular: regular rate, rhythm, no murmur Peripheral Pulses: 2+ Dorsalis Pedis (R), 2+ Left Dors-Pedis (L), 2+ Radial Pulses (R), 2+ Radial Pulses (L) Gastrointestinal: non tender, soft Extremities: non-tender, normal inspection Neurologic/Psychiatric: alert, oriented x 3 Appearance/Memory: appropriate appearance, appropriate insight Behavior/Eye Contact: cooperative, good eye contact Thoughts/Hallucinations: normal thought pattern, no apparent hallucination Skin: warm/dry, other Progress/Results/Core Measures Results/Orders Lab Results Laboratory Tests Test 05/03/18 00:33 05/03/18 00:35 05/03/18 02:35 05/03/18 03:43 Range/Units White Blood Count 10.8 4.3-11.0 10^3/uL Red Blood Count 4.82 4.35-5.85 10^6/uL Hemoglobin 14.5 11.5-16.0 G/DL Hematocrit 40 35-52 % Mean Corpuscular Volume 82 80-99 FL Mean Corpuscular Hemoglobin 30 25-34 PG Mean Corpuscular Hemoglobin Concent 37 H 32-36 G/DL Red Cell Distribution Width 13.1 10.0-14.5 % Platelet Count 256 130-400 10^3/uL Mean Platelet Volume 10.7 H 7.4-10.4 FL Neutrophils (%) (Auto) 65 42-75 % Lymphocytes (%) (Auto) 24 12-44 % Monocytes (%) (Auto) 8 0-12 % Eosinophils (%) (Auto) 3 0-10 % Basophils (%) (Auto) 0 0-10 % Neutrophils # (Auto) 7.0 1.8-7.8 X 10^3 Lymphocytes # (Auto) 2.5 1.0-4.0 X 10^3 Monocytes # (Auto) 0.9 0.0-1.0 X 10^3 Eosinophils # (Auto) 0.3 0.0-0.3 10^3/uL Basophils # (Auto) 0.0 0.0-0.1 10^3/uL Sodium Level 135 135-145 MMOL/L Potassium Level 3.7 3.6-5.0 MMOL/L Chloride Level 105 98-107 MMOL/L Carbon Dioxide Level 19 L 21-32 MMOL/L Anion Gap 11 5-14 MMOL/L Blood Urea Nitrogen 18 7-18 MG/DL Creatinine 0.94 0.60-1.30 MG/DL Estimat Glomerular Filtration Rate > 60 BUN/Creatinine Ratio 19 Glucose Level 423 *H 70-105 MG/DL Calcium Level 9.4 8.5-10.1 MG/DL Total Bilirubin 0.3 0.1-1.0 MG/DL Aspartate Amino Transf (AST/SGOT) 13 5-34 U/L Alanine Aminotransferase (ALT/SGPT) 15 0-55 U/L Alkaline Phosphatase 112 40-136 U/L Total Protein 6.6 6.4-8.2 GM/DL Albumin 4.1 3.2-4.5 GM/DL TSH [place] Testing 1.89 0.35-4.94 UIU/ML Salicylates Level < 5.0 L 5.0-20.0 MG/DL Acetaminophen Level < 10 L 10-30 UG/ML Serum Alcohol < 10 <10 MG/DL Urine Color YELLOW Urine Clarity CLEAR Urine pH 6 5-9 Urine Specific [place] 1.020 1.016-1.022 Urine Protein 1+ H NEGATIVE Urine Glucose (UA) 4+ H NEGATIVE Urine Ketones NEGATIVE NEGATIVE Urine Nitrite NEGATIVE NEGATIVE Urine Bilirubin NEGATIVE NEGATIVE Urine Urobilinogen NORMAL NORMAL MG/DL Urine Leukocyte Esterase 1+ H NEGATIVE Urine RBC (Auto) 1+ H NEGATIVE Urine RBC 0-2 /HPF Urine WBC 2-5 /HPF Urine Squamous Epithelial Cells 2-5 /HPF Urine Crystals NONE /LPF Urine Bacteria FEW H /HPF Urine Casts NONE /LPF Urine Mucus NEGATIVE /LPF Urine Yeast MODERATE H /HPF Urine Culture Indicated YES Urine Test NEGATIVE NEGATIVE Urine Opiates Screen POSITIVE H NEGATIVE Urine Oxycodone Screen NEGATIVE NEGATIVE Urine Methadone Screen NEGATIVE NEGATIVE Urine Propoxyphene Screen NEGATIVE NEGATIVE Urine Barbiturates Screen NEGATIVE NEGATIVE Ur Tricyclic Antidepressants Screen POSITIVE H NEGATIVE Urine Phencyclidine Screen NEGATIVE NEGATIVE Urine Amphetamines Screen NEGATIVE NEGATIVE Urine Methamphetamines Screen NEGATIVE NEGATIVE Urine Benzodiazepines Screen POSITIVE H NEGATIVE Urine Cocaine Screen NEGATIVE NEGATIVE Urine Cannabinoids Screen NEGATIVE NEGATIVE Glucometer 267 H 213 H 70-110 MG/DL My Orders Orders - DARRICK VERDUZCO MD Ua Culture If Indicated (05/03/18 00:27) Cbc With Automated Diff (05/03/18 00:27) Comprehensive Metabolic Panel (05/03/18 00:27) Alcohol (05/03/18 00:27) Drug Screen Stat (Urine) (05/03/18 00:27) Acetaminophen (05/03/18 00:27) Salicylate (05/03/18 00:27) Ekg Tracing (05/03/18 00:27) Hcg,Qualitative Urine (05/03/18 00:27) Thyroid Analyzer (05/03/18 00:27) Urine Culture (05/03/18 00:35) Saline Lock/Iv-Start (05/03/18 01:14) Ns Iv 1000 Ml (Sodium Chloride 0.9%) (05/03/18 01:14) Insulin (Regular) Human (Humulin R (Per (05/03/18 01:14) Insulin Determir (Per Unit) (Levemir (Pe (05/03/18 01:45) Insulin (Regular) Human (Humulin R (Per (05/03/18 02:47) Saline Lock/Iv-Start (05/03/18 02:47) Ns Iv 1000 Ml (Sodium Chloride 0.9%) (05/03/18 02:47) Sulfamethoxazole/Trimet Ds Tab (Bactrim (05/03/18 03:50) Medications Given in ED Current Medications Medications Dose Ordered Sig/Kiarra Route Start Time Stop Time Status Last Admin Dose Admin Insulin Detemir 70 unit ONCE ONCE SQ 05/03/18 01:45 05/03/18 01:46 DC 05/03/18 01:48 70 UNIT Sodium Chloride 1,000 ml @ 0 mls/hr Q0M ONCE IV 05/03/18 01:14 05/03/18 01:16 DC 05/03/18 01:28 0 MLS/HR Sodium Chloride 1,000 ml @ 0 mls/hr Q0M ONCE IV 05/03/18 02:47 05/03/18 02:48 DC 05/03/18 02:53 0 MLS/HR Vital Signs/I&O 05/03/18 00:25 Temp 97.5 Pulse 116 Resp 18 B/P (MAP) 145/86 (105) Pulse Ox 98 O2 Delivery Room Air Blood Pressure Mean: 105 Progress Progress Note : Progress Note Seen and evaluated. Labs, EKG and UA ordered. Monitor patient. Blood sugar elevated to above 400. Insulin 10 units IV and normal saline 1 L bolus ordered. 0145: Patient has not taken her long-acting insulin dose tonight. Levemir 70 units subcutaneous ordered. Monitor patient. 0235: Blood sugar still 260 which was inhibited inpatient placement. Insulin 10 units IV and repeat normal saline 1 L bolus. Elevated blood sugar likely related to not taking her long-acting insulin. She has no signs of DKA. She is mentating well. We will continue to monitor. 0345: Blood sugar now 213. We will begin process of finding inpatient bed. Patient would prefer to go to [place] We will evaluate in this respect. Bactrim DS one tab by mouth given for possible urinary tract infection. Previous history shows her typical bugs are susceptible to Bactrim. 0349: [place] has no beds. We will continue calling other facilities. 0400: No beds available the local area. I discussed this with the patient and friend. Patient would prefer not to go to far away [facility] and would like to try to see if we could set up something in the outpatient realm. She is very cooperative and otherwise doing much better. She states that she would not try to harm herself and feels like outpatient evaluation and management would be more beneficial for her. Patient does have urinary tract infection and elevation of her blood sugars which have been treated and patient is doing better and feeling better so we will attempt to talk with [facility] case assembler cardiac rehabilitation program director and set up early visit with her shelter case manager and the [facility] mental health provider through [facility]. Patient and friend comfortable with this plan. Pending further discussions. 0435: I have spoken with Itzel at [facility]. She will assist with getting early return visit to her mental health provider as well as getting the shelter case manager to call her today and following up. Discharged home with return precautions. Patient verbalize understanding instructions and agreement with plan. Initial ECG Impression Date: May 03, 2018 Initial ECG Impression Time: 00:50 Initial ECG Rate: 101 Initial ECG Rhythm: S.Tach Comment Sinus rhythm with normal axis. No evidence of ST elevation AK. Unchanged from previous and has improved rate from 01/29/18. Interpreted by me. Departure Impression Primary Impression: UTI (urinary tract infection) Qualified Codes: N30.00 - Acute cystitis without hematuria Additional Impressions: SUICIDAL IDEATION Abrasion of right upper arm Qualified Codes: S40.811A - Abrasion of right upper arm, initial encounter Diabetes mellitus Disposition: HOME, SELF-CARE Condition: Improved Departure-Patient Inst. Decision time for Depature: 04:38 Referrals: OLGA LUCERO MD (PCP/Family) Primary Care Physician Patient Instructions: Depression, Adult (DC), Skin Abrasions (DC), Suicide Prevention Add. Discharge Instructions: All discharge instructions reviewed with patient and/or family. Voiced understanding. Continue home meds as previously prescribed. Take other medications as directed. You should call your mental health provider today. The save line should call you as well and you can also talk with your shelter case manager. If you' re having any thoughts or concerns of suicide or feel like you are going to start cutting again, he should return to the ER or call the save line at [phone] (SAVE) to talk with the mental health specialist. You may use antibiotic ointment and dressing over the wound changing twice daily for the next several days and then as needed. It is okay to shower but do not soak wound in any body of water. Scripts Sulfamethoxazole/Trimethoprim (Sulfamethoxazole-Tmp Ds Tablet) 1 Each Tablet 1 EACH PO BID, #9 TAB 0 Refills Prov: DARRICK VERDUZCO MD 05/03/18 DARRICK VERDUZCO MD May 03, 2018 00:40
[2018-05-03 00:48] LABS: BILIRUBIN,URINE NEGATIVE (NEGATIVE); CLARITY,URINE CLEAR; COLOR,URINE YELLOW; GLUCOSE, URINE (UA) 4+ (NEGATIVE); KETONES,URINE NEGATIVE (NEGATIVE); LEUKOCYTE ESTERASE ,URINE 1+ (NEGATIVE); NITRITE,URINE NEGATIVE (NEGATIVE); PH,URINE 6 (5-9); PROTEIN,URINE 1+ (NEGATIVE); UROBILINOGEN,URINE NORMAL (NORMAL)
[2018-05-03 00:53] LABS: BASOPHILS % (AUTO) 0 % (0-10); EOSINOPHILS # (AUTO) 0.3 10^3/uL (0.0-0.3); EOSINOPHILS % (AUTO) 3 % (0-10); HEMATOCRIT 40 % (35-52); HEMOGLOBIN 14.5 G/DL (11.5-16.0); LYMPHOCYTES # (AUTO) 2.5 X 10^3 (1.0-4.0); LYMPHOCYTES % (AUTO) 24 % (12-44); MEAN CORPUSCULAR HEMOGLOBIN 30 PG (25-34); MEAN CORPUSCULAR HGB CONC 37 G/DL (32-36); MEAN CORPUSCULAR VOLUME 82 FL (80-99); MEAN PLATELET VOLUME 10.7 FL (7.4-10.4); MONOCYTES # (AUTO) 0.9 X 10^3 (0.0-1.0); MONOCYTES % (AUTO) 8 % (0-12); NEUTROPHILS % (AUTO) 65 % (42-75); PLATELET COUNT 256 10^3/uL (130-400); RED BLOOD COUNT 4.82 10^6/uL (4.35-5.85); RED CELL DISTRIBUTION WIDTH 13.1 % (10.0-14.5); WHITE BLOOD COUNT 10.8 10^3/uL (4.3-11.0)
[2018-05-03 00:57] LABS: AMPHETAMINE SCREEN, URINE NEGATIVE (NEGATIVE); BARBITURATE SCREEN URINE NEGATIVE (NEGATIVE); BENZODIAZEPINES SCREEN URINE POSITIVE (NEGATIVE); CANNABINOID SCREEN, URINE NEGATIVE (NEGATIVE); COCAINE SCREEN URINE NEGATIVE (NEGATIVE); HCG,QUALITATIVE URINE NEGATIVE (NEGATIVE); METHADONE STAT NEGATIVE (NEGATIVE); METHAMPHETAMINE SCREEN URINE S NEGATIVE (NEGATIVE); OPIATE SCREEN URINE POSITIVE (NEGATIVE); OXYCODONE STAT NEGATIVE (NEGATIVE); PROPOXYPHENE STAT NEGATIVE (NEGATIVE); TRICYCLIC ANTIDEPRESSANTS SCRE POSITIVE (NEGATIVE)
[2018-05-03 01:01] LABS: BACTERIA,URINE FEW /HPF; RBC,URINE 0-2 /HPF; YEAST,URINE MODERATE /HPF
[2018-05-03 01:10] LABS: ALANINE AMINOTRANSFERASE 15 U/L (0-55); ALBUMIN 4.1 GM/DL (3.2-4.5); ALKALINE PHOSPHATASE 112 U/L (40-136); BILIRUBIN,TOTAL 0.3 MG/DL (0.1-1.0); BUN/CREATININE RATIO 19; CALCIUM 9.4 MG/DL (8.5-10.1); CARBON DIOXIDE 19 MMOL/L (21-32); CHLORIDE 105 MMOL/L (98-107); CREATININE SERUM 0.94 MG/DL (0.60-1.30); GFR ESTIMATED > 60; POTASSIUM 3.7 MMOL/L (3.6-5.0); SALICYLATE < 5.0 MG/DL (5.0-20.0); SODIUM 135 MMOL/L (135-145); TOTAL PROTEIN 6.6 GM/DL (6.4-8.2)
[2018-05-03] MEDS ORDERED: CYPR4TAB41 (01:10)
[2018-05-03] MEDS ORDERED: LEVO75TA (01:10)
[2018-05-03] MEDS ORDERED: OXCA600T (01:10)
[2018-05-03] MEDS ORDERED: VORT20TA (01:10)
[2018-05-03 01:13] LABS: ACETAMINOPHEN < 10 UG/ML (10-30); GLUCOSE 423 MG/DL (70-105)
[2018-05-03] MEDS ORDERED: inSUlin (REGULAR) HUMAN 1 UNIT/0.01 ML (CHARGE PER UNIT) IV STA ×2 (01:14→02:47)
[2018-05-03] MEDS ORDERED: NS IV 1000 ML 1,000 ML IV ONE ×2 (01:14→02:47)
[2018-05-03] MEDS ORDERED: inSUlin DETERMIR 1 UNIT/0.01 ML (LEVEMIR) CHARGE PER UNIT SQ ONE (01:45)
[2018-05-03] MEDS ORDERED: TRIM/SULFAMETH 160/800 (SEPTRA DS) TAB PO STA (03:50)
[2018-05-03] MEDS ORDERED: SULF-222 PO (04:44)
[2018-05-03 05:04] VITALS: BP 123/85
== END 2018-05-03 05:06 | disposition home or self-care (01) ==
LOC: EDUNIT# 00:10 → ER 00:12
DX: S40.811A Abrasion of right upper arm, initial encounter (principal); R45.851 Suicidal ideations; N39.0 Urinary tract infection, site not specified; E11.9 Type 2 diabetes mellitus without complications; F17.210 Nicotine dependence, cigarettes, uncomplicated; G43.909 Migraine, unspecified, not intractable, without status migrainosus; K21.9 Gastro-esophageal reflux disease without esophagitis; E03.9 Hypothyroidism, unspecified; F41.9 Anxiety disorder, unspecified; F31.9 Bipolar disorder, unspecified; Z88.1 Allergy status to other antibiotic agents; Z88.0 Allergy status to penicillin; Z79.4 Long term (current) use of insulin; Z90.49 Acquired absence of other specified parts of digestive tract; X78.1XXA Intentional self-harm by knife, initial encounter
CPT/HCPCS: 36415; 80053; 80306; 80320; 80329; 81000; 82962; 84443; 84703; 85025; 87088; 93005; 96361; 96372; 96374; 96376

== ENCOUNTER 2018-08-15 19:58 | Emergency (ER) | payer MEDICARE, MEDICAID ==
[~2018-08-15] VITALS: Ht 167.6 cm; Wt 88.0 kg
[~2018-08-15 19:58] MED LIST changes: +CYPR4TAB41; +LEVO75TA; +METF-399 PO; -METF10002 PO; -OXCA300T PO; +OXCA300T18 PO; +OXCA600T10; +SULF-222 PO; +VORT20TA
--- OUTSIDE RECORDS SUMMARY | 2018-08-15 20:08 | XMS REPORT | Clinical Summary ---
Author Author [facility] Organization [facility] Address Unknown Phone Unavailable Care Team Providers Care Weaving Instructor Name Role Phone Patrick Ryan MD PCP Source Comments Some departments are not documenting in the electronic medical record. If you do not see the information that you expected, contact Release of Information in the Health Information Management department at [phone] for further assistance in locating additional records.[facility] Allergies Active Allergy Reactions Severity Noted [...]
--- OUTSIDE RECORDS SUMMARY | 2018-08-15 20:09 | XMS REPORT ---
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 71510322 Problem Schizoaffective disorder, depressive type F25.1 Active 57563951 Problem Borderline personality disorder F60.3 Active 42946959 Problem Attention deficit hyperactivity disorder (ADHD), inattentive type, 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 09143308 Problem Schizoaffective disorder, unspecified F25.9 Active 34072186 Problem High risk medication use Z79.899 Active 710226883 Problem Posttraumatic stress disorder F43.10 Active 08820166 Problem Obsessive-compulsive disorders 300.3 Active 295031135 Problem Generalized anxiety disorder 300.02 Active 78860927 Problem Attention deficit disorder 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 314.00 Active 48915462 Problem Bipolar disorder, unspecified 296.80 Active 56552569 Problem Posttraumatic stress disorder 309.81 Active 72810384 Problem Paranoid schizophrenia, unspecified condition 295.30 Active [id number] ALLERGIES No Information ENCOUNTERS Encounter Location Date Diagnosis [facility] [address] [facility] [id number] [address] Jul, [facility] [id number] [place] [address]13[address] May, Paranoid schizophrenia F20.0 ; Posttraumatic stress disorder F43.10 ; Attention deficit hyperactivity disorder (ADHD), inattentive type, 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 and Borderline personality disorder F60.3 [facility] [id number] [place] [address] 11868- 5928 May, [facility] [address] [facility] [id number], [place] [address] May, Paranoid schizophrenia F20.0 [facility] [id number] [address] May, Paranoid schizophrenia F20.0 ; Posttraumatic stress disorder F43.10 ; Attention deficit hyperactivity disorder (ADHD), inattentive type, 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 and Borderline personality disorder F60.3 [facility] [id number] [address] Apr, [facility] [id number] [address] Apr, Paranoid schizophrenia F20.0 ; Posttraumatic stress disorder F43.10 ; Attention deficit hyperactivity disorder (ADHD), inattentive type, 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 and Borderline personality disorder F60.3 [facility] [address] [address] Apr, [facility] [id number] [address] 4[address] Apr, Schizoaffective disorder, depressive type F25.1 and Borderline personality disorder F60.3 [facility] [id number] [address] 14[address] Apr, Paranoid schizophrenia F20.0 ; Posttraumatic stress disorder F43.10 ; Attention deficit hyperactivity disorder (ADHD), inattentive type, 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 and Borderline personality disorder F60.3 [facility] [address] [facility] [id number] [address] Apr, [facility] [id number] [address] Apr, Paranoid schizophrenia F20.0 ; Posttraumatic stress disorder F43.10 ; Attention deficit hyperactivity disorder (ADHD), inattentive type, 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 and Borderline personality disorder F60.3 [facility] [address] [address] Apr, [facility] [address] [address] Mar, Paranoid schizophrenia F20.0 [facility] [address] [address] Mar, [facility] [address] [address] 4[address] Mar, Paranoid schizophrenia F20.0 ; Posttraumatic stress disorder F43.10 ; Attention deficit hyperactivity disorder (ADHD), inattentive type, 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 and Borderline personality disorder F60.3 [facility] [address] [address] February, Paranoid schizophrenia F20.0 [facility] [address] [address] February, Paranoid schizophrenia F20.0 ; Posttraumatic stress disorder F43.10 ; Attention deficit hyperactivity disorder (ADHD), inattentive type, 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 and Borderline personality disorder F60.3 [facility] [address] [address] 8[address] February, Paranoid schizophrenia F20.0 ; Posttraumatic stress disorder F43.10 ; Attention deficit hyperactivity disorder (ADHD), inattentive type, 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 and Borderline personality disorder F60.3 [facility] [address] [address] February, [facility] [address] [address] 79[address] February, Paranoid schizophrenia F20.0 [facility] [address] [address] 3772 February, Paranoid schizophrenia F20.0 [facility] [id number] [address] 49[address] February, Paranoid schizophrenia F20.0 ; Posttraumatic stress disorder F43.10 ; Attention deficit hyperactivity disorder (ADHD), inattentive type, 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 and Borderline personality disorder F60.3 [facility] [address] [address] 2316 Jan, Paranoid schizophrenia F20.0 ; Posttraumatic stress disorder F43.10 ; Attention deficit hyperactivity disorder (ADHD), inattentive type, 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 and Borderline personality disorder F60.3 [facility] [id number] [place] [address] 21833- 7562 Jan, Paranoid schizophrenia F20.0 [facility] [id number] [place] [address] 45013- 6690 Jan, Paranoid schizophrenia F20.0 [facility] [address] [id number] [address] 12[address] Jan, Paranoid schizophrenia F20.0 ; Posttraumatic stress disorder F43.10 ; Attention deficit hyperactivity disorder (ADHD), inattentive type, 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 and Borderline personality disorder F60.3 [facility] [address]005[address] [address] Dec, [facility] [address] [address] Nov, Paranoid schizophrenia F20.0 ; Posttraumatic stress disorder F43.10 ; Attention deficit hyperactivity disorder (ADHD), inattentive type, 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 and Borderline personality disorder F60.3 [facility] [address] [address] Nov, [facility] [address] [address]- 07[address] Oct, Paranoid schizophrenia F20.0 [facility] [id number] [address] 6[address] Oct, Paranoid schizophrenia F20.0 ; Posttraumatic stress disorder F43.10 ; Attention deficit hyperactivity disorder (ADHD), inattentive type, 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 ; Borderline personality disorder F60.3 and Other long goods drier ( 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 Z79.899 [facility] [address] [address]- [address] Oct, [facility] [address] [address]- 8[address] Oct, [facility] [address] [address]- 9514 Sep, [facility] [address] [address]- 59[address] Sep, Paranoid schizophrenia F20.0 ; Posttraumatic stress disorder F43.10 ; Attention deficit hyperactivity disorder (ADHD), inattentive type, 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 and Borderline personality disorder F60.3 [facility] [address], [place] [address]- 3[address] Sep, Paranoid schizophrenia F20.0 [facility] [address] [address]- 3693 Aug, Paranoid schizophrenia F20.0 ; Posttraumatic stress disorder F43.10 ; Attention deficit hyperactivity disorder (ADHD), inattentive type, 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 and Borderline personality disorder F60.3 [facility] [address] [address]- 8570 Aug, Paranoid schizophrenia F20.0 ; Posttraumatic stress disorder F43.10 ; Attention deficit hyperactivity disorder (ADHD), inattentive type, 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 and Borderline personality disorder F60.3 [facility] [address] [address]- [address] Aug, [facility] [address] [address]- 8590 Jul, Paranoid schizophrenia F20.0 ; Posttraumatic stress disorder F43.10 ; Attention deficit hyperactivity disorder (ADHD), inattentive type, 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 and Borderline personality disorder F60.3 [facility] [address] [address]- 8[address] Jul, Paranoid schizophrenia F20.0 [facility] [address] [address]- 3[address] Jul, Paranoid schizophrenia F20.0 ; Posttraumatic stress disorder F43.10 ; Attention deficit hyperactivity disorder (ADHD), inattentive type, 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 and Borderline personality disorder F60.3 [facility] [address] [address]- 3529 Jun, Paranoid schizophrenia F20.0 ; Posttraumatic stress disorder F43.10 ; Attention deficit hyperactivity disorder (ADHD), inattentive type, 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 and Borderline personality disorder F60.3 [facility] [address] [address]- 0706 May, Other prison (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 Z79.899 [facility] [address] [address]- 5689 May, [facility] [address] [address]- 4163 May, [facility] [address] [address]- 8348 May, Attention deficit hyperactivity disorder (ADHD), inattentive type, 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 [facility] [address] [address] May, [facility] [address], [place] [address]- 5441 May, Attention deficit hyperactivity disorder (ADHD), inattentive type, 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 [facility] [address] [address]- 8050 May, Paranoid schizophrenia F20.0 ; Posttraumatic stress disorder F43.10 ; Attention deficit hyperactivity disorder (ADHD), inattentive type, 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 and Other long goods drier (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 Z79.899 [facility] [address]65[place] [address]- 1726 Apr, Paranoid schizophrenia F20.0 [facility] [address], [place] [address]- 6716 Apr, Paranoid schizophrenia F20.0 ; Posttraumatic stress disorder F43.10 and Attention deficit hyperactivity disorder (ADHD), inattentive type, 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 [facility] [address] [address]- 2[address] February, [facility] [address] [address]- 2162 February, Paranoid schizophrenia F20.0 ; Posttraumatic stress disorder F43.10 and Attention deficit hyperactivity disorder (ADHD), inattentive type, 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 [facility] [address] [address]- 8024 February, Paranoid schizophrenia F20.0 ; Posttraumatic stress disorder F43.10 and Attention deficit hyperactivity disorder (ADHD), inattentive type, 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 [facility] [address] [address]- 3367 Jan, Paranoid schizophrenia F20.0 ; Posttraumatic stress disorder F43.10 and Attention deficit hyperactivity disorder (ADHD), inattentive type, 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 [facility] [address] [address] Dec, Dental examination Z01.20 [facility] [address] [id number] [address] Nov, Dental examination Z01.20 [facility] [address] [id number] [address] Nov, Dental examination Z01.20 [facility] [address] [address] Nov, Dental caries K02.9 [facility] [address], [place] [address]- 1472 Nov, High risk medication use Z79.899 [facility] [address], [place] [address]- 2325 Nov, Paranoid schizophrenia F20.0 ; Posttraumatic stress disorder F43.10 ; Attention deficit hyperactivity disorder (ADHD), inattentive type, 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 and Borderline personality disorder in adult F60.3 [facility] [address] [place] [id number] Oct, Dental caries K02.9 [facility] [id number] [place] [address] 41212- 9651 Sep, Paranoid schizophrenia F20.0 ; Posttraumatic stress disorder F43.10 and Attention deficit hyperactivity disorder (ADHD), inattentive type, 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 [facility] [address] [place] [address] 56289- 8788 Aug, Paranoid schizophrenia F20.0 ; Posttraumatic stress disorder F43.10 and Attention deficit hyperactivity disorder (ADHD), inattentive type, 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 [facility] [address] [address] Aug, Strep throat J02.0 and Cough R05 [facility] [address] [place] [address] 13769- 2674 Aug, [facility] [address] [place] [address] 89237- 8537 Jul, Paranoid schizophrenia F20.0 ; Posttraumatic stress disorder F43.10 and Attention deficit hyperactivity disorder (ADHD), inattentive type, 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 [facility] [address] [address]- 2754 Jul, [facility] [id number] [place] [address] 39264- 4200 Jun, Paranoid schizophrenia F20.0 ; Posttraumatic stress disorder F43.10 and Attention deficit hyperactivity disorder (ADHD), inattentive type, 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 [facility] [address] [address] Jun, Dental examination Z01.20 [facility] [address] [place] [address] 56451- 8788 Jun, [facility] [id number] [place] [address] 89911- 3244 May, Paranoid schizophrenia F20.0 [facility] [id number] [place] [address] 25558- 2472 May, Paranoid schizophrenia F20.0 ; Posttraumatic stress disorder F43.10 and Attention deficit hyperactivity disorder (ADHD), inattentive type, 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 [facility] [address] [place] [address] 99738- 1088 May, [facility] [id number] [place] [address] 10815- 9713 May, Paranoid schizophrenia F20.0 [facility] [address] [place] [address] 90646- 9513 May, [facility] [address] [place] [address] 40541- 3952 May, Paranoid schizophrenia F20.0 [facility] [id number] [place] [address] 27939- 1138 May, Schizoaffective disorder, unspecified F25.9 [facility] [address] [address]- 7631 May, Schizoaffective disorder, unspecified F25.9 [facility] [id number] [address]- 4663 May, [facility] [id number] [place] [address] 45205- 3333 May, Paranoid schizophrenia F20.0 [facility] [id number] [address]- 4803 May, Paranoid schizophrenia F20.0 ; Posttraumatic stress disorder F43.10 and Attention deficit hyperactivity disorder (ADHD), inattentive type, 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 [facility] [address] [id number] [place] [address]- 0226 Mar, [facility] [address] [id number] [place] [address]36 Mar, Paranoid schizophrenia F20.0 ; Posttraumatic stress disorder F43.10 and Attention deficit hyperactivity disorder (ADHD), inattentive type, 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 [facility] [address] [id number] [place] [address]- 1388 Mar, Paranoid schizophrenia F20.0 [facility] [address] [facility] [id number] [place] [address]- 8228 Mar, Paranoid schizophrenia F20.0 ; Attention deficit hyperactivity disorder (ADHD), inattentive type, 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 and Posttraumatic stress disorder F43.10 [facility] [address] [facility] [id number] [place] [address]- 9922 Mar, [facility] [address] [facility] [id number] [place] [address]45 Mar, Paranoid schizophrenia F20.0 ; Posttraumatic stress disorder F43.10 and Attention deficit hyperactivity disorder (ADHD), inattentive type, 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 [facility] [address] [id number] [place] [address]- 7638 February, [facility] [address] [facility] [id number] [place] [address] [address]70 February, [facility] [address] [id number] [place] [address]- 6153 February, [facility] [address] [facility] [id number] [place] [address]132 February, [facility] [address] [facility] [id number] [place] [address]- 1763 Jan, Paranoid schizophrenia F20.0 [facility] [place] [address] [id number] [id number] Jan, Dental examination Z01.20 [facility] [address] [id number] [address] Jan, Dental caries K02.9 [facility] [address] [id number] [address] Jan, Dental examination Z01.20 [facility] [address] [id number] [address] Dec, Encounter for dental examination Z01.20 [facility] [address] [facility] [id number], [place] [address]- 4777 Dec, Paranoid schizophrenia F20.0 [facility] [address] [id number][place] [address] Dec, Dental examination Z01.20 [facility] [address] [address]- 5669 Dec, [facility] [id number] [address]- 5272 Dec, Paranoid schizophrenia F20.0 ; Posttraumatic stress disorder F43.10 and Attention deficit hyperactivity disorder (ADHD), inattentive type, 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 [facility] [address] [address]- 5069 Sep, [facility] [address] [place] [address] 70542- 7681 Sep, Paranoid schizophrenia F20.0 ; Posttraumatic stress disorder F43.10 and Attention deficit hyperactivity disorder (ADHD), inattentive type, 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 [facility] [id number] [place] [address] 07177- 0449 Aug, Paranoid schizophrenia F20.0 [facility] [address] [address]- 8792 Aug, [facility] [id number] [place] [address] 62852- 8214 Aug, Posttraumatic stress disorder F43.10 ; Paranoid schizophrenia F20.0 and Attention deficit hyperactivity disorder (ADHD), inattentive type, 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 [facility] [address] [place] [address] 65087- 3167 Jul, Bipolar disorder, unspecified F31.9 [facility] [address], [place] [address]- 4773 Jul, [facility] [id number] [address]- 6140 Jun, [facility] [address] [address]- 8448 Jun, Schizoaffective disorder, chronic 295.72 ; Posttraumatic stress disorder 309.81 and Attention deficit disorder 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 314.00 [facility] [address] [address]- 0184 May, [facility] [id number] [place] [address] 71486- 1937 May, [facility] [address] [address]- 8519 May, Schizoaffective disorder, chronic 295.72 ; Posttraumatic stress disorder 309.81 ; Attention deficit disorder 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 314.00 and Bipolar disorder, unspecified 296.80 [facility] [address] [address]- 8736 Apr, Schizoaffective disorder, chronic 295.72 [facility] [address] [address]- 6087 Apr, [facility] [id number] [place] [address] 39359- 0471 Apr, Schizoaffective disorder, chronic 295.72 ; Posttraumatic stress disorder 309.81 and Attention deficit disorder 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 314.00 [facility] [address] [place] [address] 10719- 3722 Mar, Disorganized schizophrenia, 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 [facility] [id number] [address]- 3428 Mar, [facility] [id number] [place] [address] 24048- 3464 Mar, [facility] [address] [address]- 4779 Mar, [facility] [address] [address]- 8090 Mar, [facility] [address] [address]- 3148 February, Schizoaffective disorder, chronic 295.72 [facility] [address] [address]- 5770 February, [facility] [address] [address]- 0526 February, Attention deficit disorder 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 314.00 ; Posttraumatic stress disorder 309.81 and Schizoaffective disorder, chronic 295.72 [facility] [address] [address]- 5735 Jan, [facility] [place] [facility] [address] [id number] [place] [address]- 4855 14 Jan, 2015 [facility] [place] [facility] [address] [id number] [place] [address]- 3780 Jan, [facility] [place] [facility] [address] [id number] [place] [address]- 8170 Dec, [facility] [place] [facility] [address] [id number] [place] [address]- 2406 Dec, [facility] [place] [facility] [address] [id number] [place] [address]- 7451 Dec, [facility] [place] [facility] [address] [id number] [place] [address]- 8250 Dec, [facility] [place] [facility] [address] [id number] [place] [address]- 7626 Dec, [facility] [place] [facility] [address] [id number] [place] [address] Dec, [facility] [place] [facility] [address] [id number] [place] [address] 8795 Dec, [facility] [place] [facility] [address] [id number] [place] [address] 3505 Dec, [facility] [place] [facility] [address] [id number] [place] [address] 7291 Nov, [facility] [place] [facility] [address] [id number] [place] [address]- 5478 Nov, [facility] [place] [facility] [address] [id number] [place] [address] Nov, [facility] [place] [facility] [address] [id number] [place] [address]- 6570 Nov, [facility] [place] [facility] [address] [id number] [place] [address]- 7153 Nov, [facility] [place] [facility] [address] [id number] [address]88 Nov, [facility] [place] [facility] [address] [id number] [place] [address]- 3657 Nov, [facility] [place] [facility] [address] [id number] [place] [address] Nov, [facility] [place] [facility] [address] [id number] [place] [address]- 6165 Nov, [facility] [place] [facility] [address] [id number] [place] [address]- 6609 Nov, [facility] [place] [facility] [address] [id number] [place] [address]- 7453 Oct, [facility] [place] [facility] [address] [id number] [place] [address]- 7711 Oct, [facility] [place] [facility] [address] [id number] [place] [address]- 1707 Oct, [facility] [place] [facility] [address] [id number] [place] [address]- 3128 Oct, [facility] [place] [facility] [address] [id number] [place] [address]- 9888 Oct, [facility] [place] [facility] [address] [facility] [id number] [place] [address]- 3720 Oct, [facility] [place] [facility] [address] [id number] [place] [address]- 2629 Oct, [facility] [place] [facility] [address] [id number] [place] [address]- 3466 Sep, [facility] [place] [facility] [address] [id number] [place] [address]- 9511 Sep, [facility] [place] [facility] [address] [id number] [place] [address]- 9741 Sep, [facility] [place] [facility] [address] [id number] [place] [address]- 6714 Sep, [facility] [place] [facility] [address] [id number] [place] [address]- 5068 Aug, [facility] [place] [facility] [address] [id number] [place] [address]- 0654 Aug, [facility] [place] [facility] [address] [id number] [place] [address]- 7803 Aug, [facility] [place] [facility] [address] [id number] [place] [address]- 1355 Aug, [facility] [place] [facility] [address] [id number] [place] [address]- 3783 Aug, [facility] [place] [facility] [address] [id number] [place] [address]- 6373 Aug, [facility] [place] [facility] [address] [id number] [place] [address]- 6590 Jul, [facility] [place] [facility] [address] [id number] [place] [address]- 3937 Jul, [facility] [place] [facility] [address] [id number] [place] [address]- 2386 Jul, [facility] [place] [facility] [address] [id number] [place] [address]- 7833 Jul, [facility] [place] [facility] [address] [id number] [place] [address]- 1882 Jul, [facility] [place] [facility] [address] [id number] [place] [address]- 3993 Jul, [facility] [place] [facility] [address] [id number] [place] [address]- 1717 Jun, [facility] [place] [facility] [address] [id number] [place] [address]- 0307 27 Jun, 2014 [facility] [place] [facility] [address] [id number] [place] [address]- 5490 26 Jun, 2014 [facility] [place] [facility] [address] [id number] [place] [address]- 7150 Jun, 2013 [facility] [place] [facility] [address] [id number] [place] [address]- 8436 Jun, 2013 [facility] [place] [facility] [address] [id number] [place] [address]- 7156 Jun, [facility] [place] [facility] [address] [id number] [place] [address] 2546 Jun, 2013 [facility] [place] [facility] [address] [id number] [place] [address] 2546 Jun, 2013 [facility] [place] [facility] [address] [id number] [place] [address]- 4132 Jun, 2013 [facility] [place] [facility] [address] [id number] [place] [address]- 4887 Jun, [facility] [place] [facility] [address] [id number] [place] [address]- 0201 Jun, [facility] [place] [facility] [address] [id number] [place] [address]- 1878 May, [facility] [place] [facility] [address] [id number] [place] [address]- 7414 May, [facility] [place] [facility] [address] [id number] [place] [address]- 5867 May, [facility] [place] [facility] [address] [id number] [place] [address]- 6241 May, [facility] [place] [facility] [address] [id number] [place] [address]- 2476 May, [facility] [place] [facility] [address] [id number] [place] [address]- 2173 May, [facility] [place] [facility] [address] [id number] [place] [address]- 2716 May, [facility] [place] [facility] [address] [id number] [place] [address]- 0649 May, [facility] [place] [facility] [address] [id number] [place] [address]- 2057 May, [facility] [place] [facility] [address] [id number] [place] [address]- 2156 May, [facility] [place] [facility] [address] [id number] [place] [address]- 0671 Apr, [facility] [place] [facility] [address] [id number] [place] [address]- 7229 Apr, [facility] [place] [facility] [address] [id number] [place] [address]- 0138 Apr, [facility] [place] [facility] [address] [id number] [place] [address]- 8122 Apr, [facility] [place] [facility] [address] [id number] [place] [address]- 8112 Apr, [facility] [place] [facility] [address] [id number] [place] [address]- 2301 Apr, [facility] [place] [facility] [address] [id number] [place] [address]- 0234 Apr, [facility] [place] [facility] [address] [id number] [place] [address]- 7406 Apr, [facility] [place] [facility] [address] [id number] [place] [address]- 4249 Apr, [facility] [place] [facility] [address] [id number] [place] [address]- 5730 Apr, [facility] [place] [facility] [address] [id number] [place] [address]- 2388 Mar, [facility] [place] [facility] [address] [id number] [place] [address]- 1704 Mar, [facility] [place] [facility] [address] [id number] [place] [address]- 1675 Mar, [facility] [place] [facility] [address] [id number] [place] [address]- 0786 Mar, [facility] [place] [facility] [address] [id number] [place] [address]- 8768 Mar, [facility] [place] [facility] [address] [id number] [place] [address]- 4086 Mar, [facility] [place] [facility] [address] [id number] [place] [address]- 3466 18 Mar, 2014 [facility] [place] [facility] [address] [id number] [place] [address]- 4700 Mar, [facility] [place] [facility] [address] [id number] [place] [address]- 7210 16 Mar, 2014 [facility] [place] [facility] [address] [id number] [place] [address]- 4513 Mar, [facility] [place] [facility] [address] [id number] [place] [address]- 0790 Mar, [facility] [place] [facility] [address] [id number] [place] [address]- 5833 Mar, [facility] [place] [facility] [address] [id number] [place] [address]- 0979 Mar, [facility] [place] [facility] [address] [id number] [place] [address]- 7070 Mar, [facility] [place] [facility] [address] [id number] [place] [address]- 2345 Mar, [facility] [place] [facility] [address] [id number] [address]- 2371 Mar, [facility] [place] [facility] [address] [id number] [place] [address]- 8806 Mar, [facility] [place] [facility] [address] [id number] [place] [address]- 7489 Mar, [facility] [place] [facility] [address] [id number] [place] [address]- 5930 04 Mar, 2014 [facility] [place] [facility] [address] [id number] [place] [address]- 0388 Mar, [facility] [address] [id number] [place] [address]- 7268 February, [facility] [address] [id number] [place] [address]- 1956 February, [facility] [address] [id number] [place] [address]- 1045 February, [facility] [place] [facility] [address] [id number] [place] [address]- 8950 February, [facility] [address] [id number] [place] [address]- 3606 February, [facility] [address] [id number] [place] [address]- 3598 February, [facility] [address] [id number] [place] [address]- 5472 February, [facility] [address] [id number] [place] [address]- 4180 February, [facility] [address] [id number] [place] [address]- 8859 February, [facility] [address] [id number] [place] [address]- 2381 February, [facility] [address] [id number] [place] [address]- 5556 February, [facility] [place] [facility] [address] [id number] [place] [address]- 9522 February, [facility] [place] [facility] [address] [id number] [place] [address]- 8656 February, [facility] [place] [facility] [address] [id number] [place] [address]- 6173 February, [facility] [place] [facility] [address] [id number] [place] [address]- 6576 February, [facility] [place] [facility] [address] [id number] [place] [address]- 2967 February, [facility] [place] [facility] [address] [id number] [place] [address]- 5200 February, [facility] [place] [facility] [address] [id number] [place] [address]- 8821 February, [facility] [place] [facility] [address] [id number] [place] [address]- 8115 February, [facility] [place] [facility] [address] [id number] [place] [address]- 6295 February, [facility] [place] [facility] [address] [id number] [place] [address]- 6899 February, [facility] [place] [facility] [address] [id number] [place] [address]- 3721 Jan, [facility] [place] [facility] [address] [id number] [place] [address]- 7976 Jan, [facility] [place] [facility] [address] [id number] [place] [address]- 2924 Jan, [facility] [place] [facility] [address] [id number] [place] [address]- 7408 Jan, [facility] [place] [facility] [address] [id number] [place] [address]- 1554 Jan, [facility] [place] [facility] [address] [id number] [place] [address]- 8941 Jan, [facility] [place] [facility] [address] [id number] [place] [address]- 0656 Jan, [facility] [place] [facility] [address] [id number] [place] [address]- 2182 Jan, [facility] [place] [facility] [address] [id number] [place] [address]- 0897 Dec, [facility] [place] [facility] [address] [id number] [place] [address]- 5046 20 Dec, 2013 [facility] [place] [facility] [address] [id number] [place] [address]- 6140 20 Dec, 2013 [facility] [place] [facility] [address] [id number] [place] [address]- 3487 19 Dec, 2013 [facility] [place] [facility] [address] [id number] [place] [address]- 7363 19 Dec, 2013 [facility] [place] [facility] [address] [id number] [place] [address]- 6253 15 Dec, 2013 [facility] [place] [facility] [address] [id number] [place] [address]- 3944 15 Dec, 2013 [facility] [place] [facility] [address] [id number] [place] [address]- 7438 11 Dec, 2013 [facility] [place] [facility] [address] [id number] [place] [address]- 5466 10 Dec, 2013 [facility] [place] [facility] [address] [id number] [place] [address]- 3226 10 Dec, 2013 [facility] [place] [facility] [address] [id number] [place] [address]- 8284 18 Nov, 2013 [facility] [place] [facility] [address] [id number] [place] [address]- 0884 Nov, [facility] [place] [facility] [address] [id number] [place] [address]- 8863 Nov, [facility] [place] [facility] [address] [id number] [place] [address]- 3324 Nov, [facility] [place] [facility] [address] [id number] [place] [address]- 1902 Nov, [facility] [place] [facility] [address] [id number] [place] [address]- 4379 Oct, [facility] [place] [facility] [address] [id number] [place] [address]- 9024 Oct, [facility] [place] [facility] [address] [id number] [place] [address]- 4099 Oct, [facility] [address] [id number] [place] [address]- 7906 Sep, [facility] [place] [facility] [address] [id number] [place] [address]- 5100 Sep, [facility] [place] [facility] [address] [id number] [place] [address]- 0448 Sep, [facility] [place] [facility] [address] [id number] [place] [address]- 4484 Sep, [facility] [place] [facility] [address] [id number] [place] [address]- 8297 Aug, [facility] [place] [facility] [address] [id number] [place] [address]- 4052 Aug, [facility] [place] [facility] [address] [id number] [place] [address]- 7660 Jul, [facility] [address] [id number] [place] [address]- 8309 Jul, [facility] [place] [facility] [address] [id number] [place] [address]- 5130 Jul, [facility] [place] [facility] [address] [id number] [place] [address]- 6894 Jul, [facility] [place] [facility] [address] [id number] [place] [address]- 9313 Jul, [facility] [place] [facility] [address] [id number] [place] [address]- 6506 Jun, [facility] [place] [facility] [address] [id number] [place] [address]- 6585 Jun, [facility] [place] [facility] [address] [id number] [place] [address]- 5860 19 Jun, 2013 [facility] [place] [facility] [address] [id number] [place] [address]- 1380 18 Jun, 2013 [facility] [address] [id number] [place] [address]- 4708 16 Jun, 2013 [facility] [place] [facility] [address] [id number] [place] [address]- 3034 12 Jun, 2013 [facility] [place] [facility] [address] [id number] [place] [address]- 0608 11 Jun, 2013 [facility] [place] [facility] [address] [id number] [place] [address]- 4239 30 May, 2013 [facility] [place] [facility] [address] [id number] [place] [address]- 4909 May, [facility] [place] [facility] [address] [id number] [place] [address]- 9144 Apr, [facility] [place] [facility] [address] [id number] [place] [address]- 8351 Apr, [facility] [place] [facility] [address] [id number] [place] [address]- 6205 Apr, [facility] [place] [facility] [address] [id number] [place] [address]- 4209 Mar, [facility] [place] [facility] [address] [id number] [place] [address]- 8451 Mar, [facility] [place] [facility] [address] [id number] [place] [address]- 0034 February, [facility] [place] [facility] [address] [id number] [place] [address]- 6902 February, [facility] [place] [facility] [address] [id number] [place] [address]- 3141 February, [facility] [place] [facility] [address] [id number] [place] [address]- 4741 February, [facility] [place] [facility] [address] [id number] [place] [address]- 3145 Jan, [facility] [place] [facility] [address] [id number] [place] [address]- 1295 17 Jan, 2013 [facility] [address] [id number] [place] [address]- 9378 16 Jan, 2013 [facility] [place] [facility] [address] [id number] [place] [address]- 9177 29 Dec, 2012 [facility] [address] [id number] [place] [address]- 7281 Dec, [facility] [place] [facility] [address] [id number] [place] [address]- 5689 Dec, [facility] [place] [facility] [address] [id number] [place] [address]- 6158 08 Dec, 2012 [facility] [place] [facility] [address] [id number] [place] [address]- 9193 20 Nov, 2012 [facility] [address] [id number] [place] [address]- 3937 Nov, [facility] [place] [facility] [address] [id number] [place] [address]- 4063 Oct, [facility] [place] [facility] [address] [id number] [place] [address]- 8957 Oct, [facility] [address] [id number] [place] [address]- 7664 Oct, [facility] [place] [facility] [address] [id number] [place] [address]- 7129 Oct, [facility] [place] [facility] [address] [id number] [place] [address]- 8568 Aug, [facility] [place] [facility] [address] [id number] [place] [address]- 0854 Aug, [facility] [place] [facility] [address] [id number] [place] [address]- 9505 Jun, [facility] [place] [facility] [address] [id number] [place] [address]- 8777 May, [facility] [place] [facility] [address] [id number] [place] [address]- 2524 May, [facility] [place] [facility] [address] [id number] [place] [address]- 0846 Apr, [facility] [place] [facility] [address] [id number] [place] [address] 2546 Apr, [facility] [place] [facility] [address] [id number] [place] [address]- 6649 Apr, [facility] [address] [id number] [place] [address]- 1229 Mar, [facility] [place] [facility] [address] [id number] [place] [address]- 3182 Mar, [facility] [address] [id number] [place] [address]- 3226 Mar, [facility] [address] [id number] [place] [address]- 1202 Mar, [facility] [place] [facility] [address] [id number] [place] [address]- 6445 Mar, [facility] [place] [facility] [address] [id number] [place] [address]- 5788 February, [facility] [place] [facility] [address] [id number] [place] [address]- 5856 February, [facility] [place] [facility] [address] [id number] [place] [address]- 2176 February, [facility] [place] [facility] [address] [id number] [place] [address]- 8645 February, [facility] [place] [facility] [address] [id number] [place] [address]- 4786 February, [facility] [place] [facility] [address] [id number] [place] [address]- 9856 February, [facility] [place] [facility] [address] [id number] [place] [address]- 3852 February, [facility] [place] [facility] [address] [id number] [place] [address] 25 Jan, 2012 [facility] [place] [facility] [address] [id number] [place] [address] 18 Jan, 2012 [facility] [place] [facility] [address] [id number] [place] [address] 17 Jan, 2012 [facility] [place] [facility] [address] [id number] [place] [address] 13 Jan, 2012 [facility] [place] [facility] [address] [id number] [place] [address] 10 Jan, 2012 [facility] [place] [facility] [address] [id number] [place] [address] 04 Jan, 2012 [facility] [place] [facility] [address] [id number] [place] [address] 30 Dec, 2011 [facility] [place] [facility] [address] [id number] [place] [address]47 24 Dec, 2011 [facility] [place] [facility] [address] [id number] [place] [address] Dec, [facility] [place] [facility] [address] [id number] [place] [address] Dec, [facility] [place] [facility] [address] [id number] [place] [address] Dec, [facility] [place] [facility] [address] [id number] [place] [address]44 28 Nov, 2011 [facility] [place] [facility] [address] [id number] [place] [address] Nov, [facility] [place] [facility] [address] [id number] [place] [address] 25 Nov, 2011 [facility] [place] [facility] [address] [facility] [id number] [place] [address] 14 Nov, 2011 [facility] [place] [facility] [address] [id number] [place] [address] 10 Nov, 2011 [facility] [address] [id number] [place] [address] Nov, [facility] [place] [facility] [address] [id number] [place] [address] Oct, [facility] [address] [id number] [place] [address] Oct, [facility] [address] [id number] [place] [address] Oct, [facility] [place] [facility] [address] [id number] [place] [address] Oct, [facility] [address] [id number] [place] [address] Oct, [facility] [address] [id number] [place] [address] Sep, [facility] [address] [id number] [place] [address] Sep, [facility] [address] [id number] [place] [address] Sep, [facility] [address] [id number] [place] [address] 14 Sep, 2011 [facility] [place] [facility] [address] [id number] [place] [address] 14 Sep, 2011 [facility] [place] [facility] [address] [id number] [place] [address] 9946 13 Sep, 2011 [facility] [place] [facility] [address] [id number] [place] [address] 12 Sep, 2011 [facility] [place] [facility] [address] [id number] [place] [address] 09 Sep, 2011 [facility] [place] [facility] [address] [id number] [place] [address] Sep, [facility] [place] [facility] [address] [id number] [place] [address] Aug, [facility] [place] [facility] [address] [id number] [place] [address] Aug, [facility] [place] [facility] [address] [facility] [id number] [place] [address] Aug, [facility] [place] [facility] [address] [id number], [place] [address] Aug, [facility] [place] [facility] [address] [id number] [place] [address] Aug, [facility] [place] [facility] [address] [id number], [place] [address] Aug, [facility] [place] [facility] [address] [id number], [place] [address] Aug, [facility] [place] [facility] [address] [id number], [place] [address] Aug, [facility] [place] [facility] [address] [id number], [place] [address] Aug, [facility] [place] [facility] [address] [id number], [place] [address] Aug, [facility] [place] [facility] [address] [id number], [place] [address] Aug, [facility] [place] [facility] [address] [id number], [place] [address] Aug, [facility] [place] [facility] [address] [id number], [place] [address] Jul, [facility] [place] [facility] [address] [id number], [place] [address] Jul, [facility] [place] [facility] [address] [id number], [place] [address] Jul, [facility] [place] [facility] [address] [address] Jul, [facility] [address], [place] [address] Jul, [facility] [address], [place] [address] Jul, [facility] [address] [address] Jul, [facility] [id number] [place] [address] Jul, [facility] [id number] [place] [address]- [address] Jul, [facility] [id number] [place] [address]- [address] Jul, [facility] [id number] [place] [address] 133[address] Nov, [facility] [address] [address] Aug, [facility] [address], [place] [address] Aug, [facility] [address], [place] [address] Aug, [facility] [address], [place] [address] Aug, [facility] [address], [place] [address] Jul, IMMUNIZATIONS No Known Immunizations SOCIAL HISTORY Never Assessed REASON FOR VISIT medication PLAN OF CARE VITAL SIGNS MEDICATIONS Medication Instructions Dosage Frequency Start Date End Date Duration Status Trihexyphenidyl HCl 2 mg TAKE ONE-HALF TABLET BY MOUTH TWICE A DAY 30 Active RESULTS No Results PROCEDURES No Known procedures INSTRUCTIONS MEDICATIONS ADMINISTERED No Known Medications MEDICAL (GENERAL) HISTORY Type Description Date Medical History diabetes Medical History thyroid Surgical History appendix Surgical History gallbladder Surgical History eyes Surgical History hip Surgical History MRI on back and pelvis 06/08 Hospitalization History surgeries Hospitalization History VC Suicide attempt by hanging 06/14/2016 Hospitalization History [facility] 01/30/2018-02/10/2008 Hospitalization History [facility] 05/04/18-05/09/18
--- OUTSIDE RECORDS SUMMARY | 2018-08-15 20:10 | XMS REPORT ---
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 01466954 Problem Schizoaffective disorder, depressive type F25.1 Active 36112726 Problem Borderline personality disorder F60.3 Active 20528132 Problem Attention deficit hyperactivity disorder (ADHD), inattentive type, 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 08346480 Problem Schizoaffective disorder, unspecified F25.9 Active 48186499 Problem High risk medication use Z79.899 Active 752635735 Problem Posttraumatic stress disorder F43.10 Active 92615890 Problem Obsessive-compulsive disorders 300.3 Active 106040428 Problem Generalized anxiety disorder 300.02 Active 05229476 Problem Attention deficit disorder 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 314.00 Active 49844956 Problem Bipolar disorder, unspecified 296.80 Active 54466175 Problem Posttraumatic stress disorder 309.81 Active 69505550 Problem Paranoid schizophrenia, unspecified condition 295.30 Active [id number] ALLERGIES No Information ENCOUNTERS Encounter Location Date Diagnosis [facility] [address] 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 and Borderline personality disorder F60.3 [facility] [address] [id number] [address] Apr, [facility] [id number], [place] [address] Apr, Paranoid schizophrenia F20.0 ; Posttraumatic stress disorder F43.10 ; Attention deficit hyperactivity disorder (ADHD), inattentive type, 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 and Borderline personality disorder F60.3 [facility] [address], [place] [address] 99[address] Apr, [facility] [id number], [place] [address] 45[address] Apr, Schizoaffective disorder, depressive type F25.1 and Borderline personality disorder F60.3 [facility] [address] [id number] [address] 8[address] Apr, Paranoid schizophrenia F20.0 ; Posttraumatic stress disorder F43.10 ; Attention deficit hyperactivity disorder (ADHD), inattentive type, 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 and Borderline personality disorder F60.3 [facility] [address], [place] [address] Apr, [facility] [address], [place] [address] 8979 Mar, Paranoid schizophrenia F20.0 [facility] [address], [place] [address] 2598 Mar, [facility] [address] [address] 1380 Mar, Paranoid schizophrenia F20.0 ; Posttraumatic stress disorder F43.10 ; Attention deficit hyperactivity disorder (ADHD), inattentive type, 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 and Borderline personality disorder F60.3 [facility] [address], [place] [address] 3947 February, Paranoid schizophrenia F20.0 [facility] [address], [place] [address] 7140 February, Paranoid schizophrenia F20.0 ; Posttraumatic stress disorder F43.10 ; Attention deficit hyperactivity disorder (ADHD), inattentive type, 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 and Borderline personality disorder F60.3 [facility] [address], [place] [address] 0[address] February, Paranoid schizophrenia F20.0 ; Posttraumatic stress disorder F43.10 ; Attention deficit hyperactivity disorder (ADHD), inattentive type, 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 and Borderline personality disorder F60.3 [facility] [address], [place] [address] 7[address] February, [facility] [address], [place] [address] 2526 February, Paranoid schizophrenia F20.0 [facility] [address] [address] 9337 February, Paranoid schizophrenia F20.0 [facility] [id number] [address] 06[address] February, Paranoid schizophrenia F20.0 ; Posttraumatic stress disorder F43.10 ; Attention deficit hyperactivity disorder (ADHD), inattentive type, 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 and Borderline personality disorder F60.3 [facility] [address], [place] [address]- 7876 Jan, Paranoid schizophrenia F20.0 ; Posttraumatic stress disorder F43.10 ; Attention deficit hyperactivity disorder (ADHD), inattentive type, 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 and Borderline personality disorder F60.3 [facility] [id number] [place] [address] 42473- 5882 Jan, Paranoid schizophrenia F20.0 [facility] [id number] [place] [address] 29255- 4647 Jan, Paranoid schizophrenia F20.0 [facility] [address] [id number] [address] 5[address] Jan, Paranoid schizophrenia F20.0 ; Posttraumatic stress disorder F43.10 ; Attention deficit hyperactivity disorder (ADHD), inattentive type, 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 and Borderline personality disorder F60.3 [facility] [address], [place] [address]- 79[address] Dec, [facility] [address], [place] [address]- 3400 Nov, Paranoid schizophrenia F20.0 ; Posttraumatic stress disorder F43.10 ; Attention deficit hyperactivity disorder (ADHD), inattentive type, 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 and Borderline personality disorder F60.3 [facility] [address], [place] [address]- 0[address] Nov, [facility] [address], [place] [address]- 3992 Oct, Paranoid schizophrenia F20.0 [facility] [id number] [address]- 5448 Oct, Paranoid schizophrenia F20.0 ; Posttraumatic stress disorder F43.10 ; Attention deficit hyperactivity disorder (ADHD), inattentive type, 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 ; Borderline personality disorder F60.3 and 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 [facility] [address], [place] [address]- 9231 Oct, [facility] [address] [address]- 0466 Oct, [facility] [address], [place] [address]- 48[address] Sep, [facility] [address], [place] [address]- 1736 Sep, Paranoid schizophrenia F20.0 ; Posttraumatic stress disorder F43.10 ; Attention deficit hyperactivity disorder (ADHD), inattentive type, 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 and Borderline personality disorder F60.3 [facility] [address], [place] [address]- 4919 Sep, Paranoid schizophrenia F20.0 [facility] [address], [place] [address]- 4178 Aug, Paranoid schizophrenia F20.0 ; Posttraumatic stress disorder F43.10 ; Attention deficit hyperactivity disorder (ADHD), inattentive type, 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 and Borderline personality disorder F60.3 [facility] [address], [place] [address]- 9112 Aug, Paranoid schizophrenia F20.0 ; Posttraumatic stress disorder F43.10 ; Attention deficit hyperactivity disorder (ADHD), inattentive type, 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 and Borderline personality disorder F60.3 [facility] [address], [place] [address]- 2864 Aug, [facility] [address], [place] [address]- 2192 Jul, Paranoid schizophrenia F20.0 ; Posttraumatic stress disorder F43.10 ; Attention deficit hyperactivity disorder (ADHD), inattentive type, 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 and Borderline personality disorder F60.3 [facility] [address], [place] [address]- 6076 Jul, Paranoid schizophrenia F20.0 [facility] [address], [place] [address]- 6729 Jul, Paranoid schizophrenia F20.0 ; Posttraumatic stress disorder F43.10 ; Attention deficit hyperactivity disorder (ADHD), inattentive type, 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 and Borderline personality disorder F60.3 [facility] [address], [place] [address]- 3152 Jun, Paranoid schizophrenia F20.0 ; Posttraumatic stress disorder F43.10 ; Attention deficit hyperactivity disorder (ADHD), inattentive type, 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 and Borderline personality disorder F60.3 [facility] [address], [place] [address]- 0084 May, Other assisted (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 Z79.899 [facility] [address], [place] [address]- 2272 May, [facility] [address], [place] [address]- 3021 May, [facility] [address], [place] [address]- 9820 May, Attention deficit hyperactivity disorder (ADHD), inattentive type, 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 [facility] [address], [place] [address]- 8425 May, [facility] [address], [place] [address]- 6380 May, Attention deficit hyperactivity disorder (ADHD), inattentive type, 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 [facility] [address], [place] [address]- 6659 May, Paranoid schizophrenia F20.0 ; Posttraumatic stress disorder F43.10 ; Attention deficit hyperactivity disorder (ADHD), inattentive type, 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 and 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 [facility] [address] [id number] [address]- 5074 Apr, Paranoid schizophrenia F20.0 [facility] [address], [place] [address]- 7012 Apr, Paranoid schizophrenia F20.0 ; Posttraumatic stress disorder F43.10 and Attention deficit hyperactivity disorder (ADHD), inattentive type, 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 [facility] [address], [place] [address]- 8859 February, [facility] [address], [place] [address]- 3978 February, Paranoid schizophrenia F20.0 ; Posttraumatic stress disorder F43.10 and Attention deficit hyperactivity disorder (ADHD), inattentive type, 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 [facility] [address], [place] [address]- 0304 February, Paranoid schizophrenia F20.0 ; Posttraumatic stress disorder F43.10 and Attention deficit hyperactivity disorder (ADHD), inattentive type, 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 [facility] [address], [place] [address]- 4332 Jan, Paranoid schizophrenia F20.0 ; Posttraumatic stress disorder F43.10 and Attention deficit hyperactivity disorder (ADHD), inattentive type, 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 [facility] [address] [id number] Dec, Dental examination Z01.20 [facility] [address] [id number] [address] Nov, Dental examination Z01.20 [facility] [address] [id number] [address] Nov, Dental examination Z01.20 [facility] [address] [address] Nov, Dental caries K02.9 [facility] [address], [place] [address]- 1310 Nov, High risk medication use Z79.899 [facility] [address], [place] [address]- 5178 Nov, Paranoid schizophrenia F20.0 ; Posttraumatic stress disorder F43.10 ; Attention deficit hyperactivity disorder (ADHD), inattentive type, 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 and Borderline personality disorder in adult F60.3 [facility] [address] [place] [id number] Oct, Dental caries K02.9 [facility] [id number] [place] [address] 88447- 4511 Sep, Paranoid schizophrenia F20.0 ; Posttraumatic stress disorder F43.10 and Attention deficit hyperactivity disorder (ADHD), inattentive type, 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 [facility] [address] [place] [address] 44034- 7846 Aug, Paranoid schizophrenia F20.0 ; Posttraumatic stress disorder F43.10 and Attention deficit hyperactivity disorder (ADHD), inattentive type, 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 [facility] [address], [place] [address] Aug, Strep throat J02.0 and Cough R05 [facility] [address] [place] [address] 74363- 2611 Aug, [facility] [address] [place] [address] 53490- 7130 Jul, Paranoid schizophrenia F20.0 ; Posttraumatic stress disorder F43.10 and Attention deficit hyperactivity disorder (ADHD), inattentive type, 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 [facility] [address], [place] [address]- 1435 Jul, [facility] [id number] [place] [address] 02742- 9570 Jun, Paranoid schizophrenia F20.0 ; Posttraumatic stress disorder F43.10 and Attention deficit hyperactivity disorder (ADHD), inattentive type, 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 [facility] [address] [address] Jun, Dental examination Z01.20 [facility] [address] [place] [address] 75804- 3455 Jun, [facility] [id number] [place] [address] 36701- 3820 May, Paranoid schizophrenia F20.0 [facility] [id number] [place] [address] 35137- 1592 May, Paranoid schizophrenia F20.0 ; Posttraumatic stress disorder F43.10 and Attention deficit hyperactivity disorder (ADHD), inattentive type, 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 [facility] [address] [place] [address] 84983- 2768 May, [facility] [id number] [place] [address] 10231- 7339 May, Paranoid schizophrenia F20.0 [facility] [address] [place] [address] 16516- 1413 May, [facility] [address] [place] [address] 30861- 4364 May, Paranoid schizophrenia F20.0 [facility] [id number] [place] [address] 59700- 9882 May, Schizoaffective disorder, unspecified F25.9 [facility] [address], [place] [address]- 9980 May, Schizoaffective disorder, unspecified F25.9 [facility] [id number], [place] [address]- 6103 May, [facility] [id number] [place] [address] 30440- 2172 May, Paranoid schizophrenia F20.0 [facility] [id number], [place] [address]- 2705 May, Paranoid schizophrenia F20.0 ; Posttraumatic stress disorder F43.10 and Attention deficit hyperactivity disorder (ADHD), inattentive type, 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 [address] [facility] [id number] [place] [address]- 3259 Mar, [facility] [address] 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 [address] [id number] [place] [address]- 0520 February, [facility] [address] [facility] [id number] [place] [address] 2515 February, [facility] [address] [id number] [place] [address]- 0952 February, [facility] [address] [facility] [id number] [place] [address] 1748 February, [facility] [address] [facility] [id number] [place] [address]- 3599 Jan, Paranoid schizophrenia F20.0 [facility] [place] [facility] [address] [id number] [address] Jan, Dental examination Z01.20 [facility] [address] [id number] [address] Jan, Dental caries K02.9 [facility] [address] [id number] [address] Jan, Dental examination Z01.20 [facility] [address] [id number] [id number] Dec, Encounter for dental examination Z01.20 [facility] [address] 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 [facility] [address], [place] [address]- 8814 Nov, Schizoaffective disorder, unspecified F25.9 [facility] [id number], [place] [address]- 3377 Oct, Paranoid schizophrenia F20.0 [facility] [id number], [place] [address]- 3632 Oct, [facility] [id number], [place] [address]- 0219 Sep, Paranoid schizophrenia F20.0 ; Posttraumatic stress disorder F43.10 and Attention deficit hyperactivity disorder (ADHD), inattentive type, 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 [facility] [address] [address] 4814 Sep, [facility] [address] [place] [address] 78834- 1104 Sep, Paranoid schizophrenia F20.0 ; Posttraumatic stress disorder F43.10 and Attention deficit hyperactivity disorder (ADHD), inattentive type, 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 [facility] [id number] [place] [address] 83063- 8069 Aug, Paranoid schizophrenia F20.0 [facility] [address], [place] [address]- 3197 Aug, [facility] [id number] [place] [address] 11259- 5486 Aug, Posttraumatic stress disorder F43.10 ; Paranoid schizophrenia F20.0 and Attention deficit hyperactivity disorder (ADHD), inattentive type, 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 [facility] [address] [place] [address] 55710- 3285 Jul, Bipolar disorder, unspecified F31.9 [facility] [address], [place] [address]- 9639 Jul, [facility] [id number], [place] [address]- 0325 Jun, [facility] [address], [place] [address]- 2076 Jun, Schizoaffective disorder, chronic 295.72 ; Posttraumatic stress disorder 309.81 and Attention deficit disorder 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 314.00 [facility] [address], [place] [address]- 7335 May, [facility] [id number] [place] [address] 06147- 8133 May, [facility] [address], [place] [address]- 3331 May, Schizoaffective disorder, chronic 295.72 ; Posttraumatic stress disorder 309.81 ; Attention deficit disorder 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 314.00 and Bipolar disorder, unspecified 296.80 [facility] [address], [place] [address]- 5510 Apr, Schizoaffective disorder, chronic 295.72 [facility] [address], [place] [address]- 3005 Apr, [facility] [id number] [place] [address] 32181- 4108 Apr, Schizoaffective disorder, chronic 295.72 ; Posttraumatic stress disorder 309.81 and Attention deficit disorder 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 314.00 [facility] [address] [place] [address] 64466- 5617 Mar, Disorganized schizophrenia, 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 [facility] [address] [id number], [place] [address]- 2722 Mar, [facility] [id number] [place] [address] 96772- 5644 Mar, [facility] [address], [place] [address]- 7784 Mar, [facility] [address], [place] [address]- 7150 Mar, [facility] [address], [place] [address]- 9654 February, Schizoaffective disorder, chronic 295.72 [facility] [address], [place] [address]- 7005 February, [facility] [address], [place] [address]- 2805 February, Attention deficit disorder 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 314.00 ; Posttraumatic stress disorder 309.81 and Schizoaffective disorder, chronic 295.72 [facility] [id number], [place] [address] Jan, [facility] [place] [facility] [address] [id number] [place] [address] 14 Jan, 2015 [facility] [place] [facility] [address] [id number] [place] [address] Jan, [facility] [place] [facility] [address] [id number] [place] [address] Dec, [facility] [place] [facility] [address] [id number] [place] [address] Dec, [facility] [place] [facility] [address] [address] [id number] [place] [address] Dec, [facility] [place] [facility] [address] [id number] [place] [address] Dec, [facility] [place] [facility] [address] [id number] [place] [address] 2006 Dec, [facility] [place] [facility] [address] [id number] [place] [address] 289[address] Dec, [facility] [place] [facility] [address] [id number] [place] [address] 2752 Dec, [facility] [place] [facility] [address] [id number] [place] [address] 9[address] Dec, [facility] [place] [facility] [address] [id number] [place] [address] 3042 Nov, [facility] [place] [facility] [address] [id number] [place] [address] 8584 Nov, [facility] [place] [facility] [address] [id number] [place] [address] 2412 Nov, [facility] [place] [facility] [address] [id number] [place] [address] 6548 Nov, [facility] [place] [facility] [address] [id number] [place] [address] 4175 Nov, [facility] [place] [facility] [address] [id number], [place] [address] Nov, [facility] [place] [facility] [address] [id number] [place] [address] 0656 Nov, [facility] [place] [facility] [address] [id number] [place] [address] Nov, [facility] [place] [facility] [address] [id number] [place] [address]- 1641 Nov, [facility] [place] [facility] [address] [id number] [place] [address] 0432 Nov, [facility] [place] [facility] [address] [id number] [place] [address]- 7590 Oct, [facility] [place] [facility] [address] [id number] [place] [address] 4689 Oct, [facility] [place] [facility] [address] [id number] [place] [address] 6636 Oct, [facility] [place] [facility] [address] [id number] [place] [address] 1051 Oct, [facility] [place] [facility] [address] [id number] [place] [address] 8787 Oct, [facility] [place] [facility] [address] [facility] [id number] [place] [address] 8425 Oct, [facility] [place] [facility] [address] [id number] [place] [address] 2654 Oct, [facility] [place] [facility] [address] [id number] [place] [address]- 7671 Sep, [facility] [place] [facility] [address] [id number] [place] [address] 9811 Sep, [facility] [place] [facility] [address] [id number] [place] [address]- 5197 Sep, [facility] [place] [facility] [address] [id number] [place] [address]- 4102 Sep, [facility] [place] [facility] [address] [id number] [place] [address]- 8638 Aug, [facility] [place] [facility] [address] [id number] [place] [address]- 9937 Aug, [facility] [place] [facility] [address] [id number] [place] [address] 4763 Aug, [facility] [place] [facility] [address] [id number] [place] [address]- 0691 Aug, [facility] [place] [facility] [address] [id number] [place] [address]- 6090 Aug, [facility] [place] [facility] [address] [id number] [place] [address]- 6324 Aug, [facility] [place] [facility] [address] [id number] [place] [address]- 3562 Jul, [facility] [place] [facility] [address] [id number] [place] [address] 9472 Jul, [facility] [place] [facility] [address] [id number] [place] [address] 0347 Jul, [facility] [place] [facility] [address] [id number] [place] [address] 9330 Jul, [facility] [place] [facility] [address] [id number] [place] [address] 9019 Jul, [facility] [place] [facility] [address] [id number] [place] [address] 3792 Jul, [facility] [place] [facility] [address] [id number] [place] [address]- 3215 Jun, [facility] [place] [facility] [address] [id number] [place] [address]- 6487 27 Jun, 2014 [facility] [place] [facility] [address] [id number] [place] [address]- 3962 26 Jun, 2014 [facility] [place] [facility] [address] [id number] [place] [address] 1643 Jun, 2013 [facility] [place] [facility] [address] [id number] [place] [address]- 2606 Jun, 2013 [facility] [place] [facility] [address] [id number] [place] [address]- 2586 Jun, [facility] [place] [facility] [address] [id number] [place] [address] 2546 Jun, 2013 [facility] [place] [facility] [address] [id number] [place] [address] 2546 Jun, 2013 [facility] [place] [facility] [address] [id number] [place] [address]- 0169 Jun, 2013 [facility] [place] [facility] [address] [id number] [place] [address]- 1022 Jun, [facility] [place] [facility] [address] [id number] [place] [address]- 8232 Jun, [facility] [place] [facility] [address] [id number] [place] [address]- 2912 May, [facility] [place] [facility] [address] [id number] [place] [address]- 7130 May, [facility] [place] [facility] [address] [id number] [place] [address]- 3373 May, [facility] [place] [facility] [address] [id number] [place] [address]- 1050 May, [facility] [place] [facility] [address] [id number] [place] [address]- 6467 May, [facility] [place] [facility] [address] [id number] [place] [address]- 4070 May, [facility] [place] [facility] [address] [id number] [place] [address]- 7767 May, [facility] [place] [facility] [address] [id number] [place] [address]- 9803 May, [facility] [place] [facility] [address] [id number] [place] [address]- 1623 May, [facility] [place] [facility] [address] [id number] [place] [address]- 8400 May, [facility] [place] [facility] [address] [id number] [place] [address]- 4736 Apr, [facility] [place] [facility] [address] [id number] [place] [address]- 9721 Apr, [facility] [place] [facility] [address] [id number] [place] [address]- 0872 Apr, [facility] [place] [facility] [address] [id number] [place] [address] 1889 Apr, [facility] [place] [facility] [address] [id number] [place] [address]- 6660 Apr, [facility] [place] [facility] [address] [id number] [place] [address]- 6513 Apr, [facility] [place] [facility] [address] [id number] [place] [address]- 1216 Apr, [facility] [place] [facility] [address] [id number] [place] [address]- 7652 Apr, [facility] [place] [facility] [address] [id number] [place] [address]- 4647 Apr, [facility] [place] [facility] [address] [id number] [place] [address]- 5569 Apr, [facility] [place] [facility] [address] [id number] [place] [address]- 6038 Mar, [facility] [place] [facility] [address] [id number] [place] [address]- 7194 Mar, [facility] [place] [facility] [address] [id number] [place] [address]- 2387 Mar, [facility] [place] [facility] [address] [id number] [place] [address]- 2306 Mar, [facility] [place] [facility] [address] [id number] [place] [address]- 3314 Mar, [facility] [place] [facility] [address] [id number] [place] [address]- 8571 Mar, [facility] [place] [facility] [address] [id number] [place] [address]- 9689 18 Mar, 2014 [facility] [place] [facility] [address] [id number] [place] [address]- 1657 Mar, [facility] [place] [facility] [address] [id number] [place] [address]- 5379 16 Mar, 2014 [facility] [place] [facility] [address] [id number] [place] [address]- 2841 Mar, [facility] [place] [facility] [address] [id number] [place] [address]- 9628 Mar, [facility] [place] [facility] [address] [id number] [place] [address]- 2339 Mar, [facility] [place] [facility] [address] [id number] [place] [address]- 3135 Mar, [facility] [place] [facility] [address] [id number] [place] [address]- 9740 Mar, [facility] [place] [facility] [address] [id number] [place] [address]- 5764 Mar, [facility] [place] [facility] [address] [id number], [place] [address]- 4822 Mar, [facility] [place] [facility] [address] [id number] [place] [address]- 3509 Mar, [facility] [place] [facility] [address] [id number] [place] [address]- 3043 Mar, [facility] [place] [facility] [address] [id number] [place] [address]- 2625 04 Mar, 2014 [facility] [place] [facility] [address] [id number] [place] [address]- 0664 Mar, [facility] [address] [id number] [place] [address]- 7682 February, [facility] [address] [id number] [place] [address]- 3787 February, [facility] [address] [id number] [place] [address]- 5736 February, [facility] [place] [facility] [address] [id number] [place] [address]- 3276 February, [facility] [address] [id number] [place] [address]- 2582 February, [facility] [address] [id number] [place] [address]- 5803 February, [facility] [address] [id number] [place] [address]- 4392 February, [facility] [address] [id number] [place] [address]- 4300 February, [facility] [address] [id number] [place] [address]- 0133 February, [facility] [address] [id number] [place] [address]- 1754 February, [facility] [address] [id number] [place] [address]- 4397 February, [facility] [place] [facility] [address] [id number] [place] [address]- 7286 February, [facility] [place] [facility] [address] [id number] [place] [address]- 2868 February, [facility] [place] [facility] [address] [id number] [place] [address]- 9787 February, [facility] [place] [facility] [address] [id number] [place] [address]- 5566 February, [facility] [place] [facility] [address] [id number] [place] [address]- 9213 February, [facility] [place] [facility] [address] [id number] [place] [address]- 1058 February, [facility] [place] [facility] [address] [id number] [place] [address]- 3210 February, [facility] [place] [facility] [address] [id number] [place] [address]- 6699 February, [facility] [place] [facility] [address] [id number] [place] [address]- 3741 February, [facility] [place] [facility] [address] [id number] [place] [address]- 9733 February, [facility] [place] [facility] [address] [id number] [place] [address]- 4434 Jan, [facility] [place] [facility] [address] [id number] [place] [address]- 7235 Jan, [facility] [place] [facility] [address] [id number] [place] [address]- 3096 Jan, [facility] [place] [facility] [address] [id number] [place] [address]- 5396 Jan, [facility] [place] [facility] [address] [id number] [place] [address]- 5699 Jan, [facility] [place] [facility] [address] [id number] [place] [address]- 4985 Jan, [facility] [place] [facility] [address] [id number] [place] [address]- 9814 Jan, [facility] [place] [facility] [address] [id number] [place] [address]- 9925 Jan, [facility] [place] [facility] [address] [id number] [place] [address]- 1879 Dec, [facility] [place] [facility] [address] [id number] [place] [address]- 3750 20 Dec, 2013 [facility] [place] [facility] [address] [id number] [place] [address]- 7531 20 Dec, 2013 [facility] [place] [facility] [address] [id number] [place] [address]- 3016 19 Dec, 2013 [facility] [place] [facility] [address] [id number] [place] [address]- 4995 19 Dec, 2013 [facility] [place] [facility] [address] [id number] [place] [address]- 2624 15 Dec, 2013 [facility] [place] [facility] [address] [id number] [place] [address]- 7823 15 Dec, 2013 [facility] [place] [facility] [address] [id number] [place] [address]- 6692 11 Dec, 2013 [facility] [place] [facility] [address] [id number] [place] [address]- 8852 10 Dec, 2013 [facility] [place] [facility] [address] [id number] [place] [address]- 7341 10 Dec, 2013 [facility] [place] [facility] [address] [id number] [place] [address]- 0430 18 Nov, 2013 [facility] [place] [facility] [address] [id number] [place] [address]- 2659 Nov, [facility] [place] [facility] [address] [id number] [place] [address]- 1727 Nov, [facility] [place] [facility] [address] [id number] [place] [address]- 8029 Nov, [facility] [place] [facility] [address] [id number] [place] [address]- 7040 Nov, [facility] [place] [facility] [address] [id number] [place] [address]- 8610 Oct, [facility] [place] [facility] [address] [id number] [place] [address]- 4597 Oct, [facility] [place] [facility] [address] [id number] [place] [address]- 6687 Oct, [facility] [address] [id number] [place] [address]- 2663 Sep, [facility] [place] [facility] [address] [id number] [place] [address]- 4809 Sep, [facility] [place] [facility] [address] [id number] [place] [address]- 6001 Sep, [facility] [place] [facility] [address] [id number] [place] [address]- 4723 Sep, [facility] [place] [facility] [address] [id number] [place] [address]- 1856 Aug, [facility] [place] [facility] [address] [id number] [place] [address]- 1259 Aug, [facility] [place] [facility] [address] [id number] [place] [address]- 2038 Jul, [facility] [address] [id number] [place] [address]- 7663 Jul, [facility] [place] [facility] [address] [id number] [place] [address]- 8431 Jul, [facility] [place] [facility] [address] [id number] [place] [address]- 6822 Jul, [facility] [place] [facility] [address] [id number] [place] [address]- 6815 Jul, [facility] [place] [facility] [address] [id number] [place] [address]- 8382 Jun, [facility] [place] [facility] [address] [id number] [place] [address]- 7335 Jun, [facility] [place] [facility] [address] [id number] [place] [address]- 5108 19 Jun, 2013 [facility] [place] [facility] [address] [id number] [place] [address]- 4685 18 Jun, 2013 [facility] [address] [id number] [place] [address]- 5217 16 Jun, 2013 [facility] [place] [facility] [address] [id number] [place] [address]- 7887 12 Jun, 2013 [facility] [place] [facility] [address] [id number] [place] [address]- 4398 11 Jun, 2013 [facility] [place] [facility] [address] [id number] [place] [address]- 6529 30 May, 2013 [facility] [place] [facility] [address] [id number] [place] [address]- 1959 May, [facility] [place] [facility] [address] [id number] [place] [address]- 9180 Apr, [facility] [place] [facility] [address] [id number] [place] [address]- 2405 Apr, [facility] [place] [facility] [address] [id number] [place] [address]- 7628 Apr, [facility] [place] [facility] [address] [id number] [place] [address]- 6102 Mar, [facility] [place] [facility] [address] [id number] [place] [address]- 4067 Mar, [facility] [place] [facility] [address] [id number] [place] [address]- 2963 February, [facility] [place] [facility] [address] [id number] [place] [address]- 8771 February, [facility] [place] [facility] [address] [id number] [place] [address]- 2277 February, [facility] [place] [facility] [address] [id number] [place] [address]- 1738 February, [facility] [place] [facility] [address] [id number] [place] [address]- 1871 Jan, [facility] [place] [facility] [address] [id number] [place] [address]- 9596 17 Jan, 2013 [facility] [address] [id number] [place] [address]- 1252 16 Jan, 2013 [facility] [place] [facility] [address] [id number] [place] [address]- 5671 29 Dec, 2012 [facility] [address] [id number] [place] [address]- 6798 Dec, [facility] [place] [facility] [address] [id number] [place] [address]- 5291 Dec, [facility] [place] [facility] [address] [id number] [place] [address]- 7169 08 Dec, 2012 [facility] [place] [facility] [address] [id number] [place] [address]- 8712 20 Nov, 2012 [facility] [address] [id number] [place] [address]- 0686 Nov, [facility] [place] [facility] [address] [id number] [place] [address]- 9604 Oct, [facility] [place] [facility] [address] [id number] [place] [address]- 7015 Oct, [facility] [address] [id number] [place] [address]- 8790 Oct, [facility] [place] [facility] [address] [id number] [place] [address]- 0680 Oct, [facility] [place] [facility] [address] [id number] [place] [address]- 2728 Aug, [facility] [place] [facility] [address] [id number] [place] [address]- 9577 Aug, [facility] [place] [facility] [address] [id number] [place] [address]- 9566 Jun, [facility] [place] [facility] [address] [id number] [place] [address]- 6479 May, [facility] [place] [facility] [address] [id number] [place] [address]- 1784 May, [facility] [place] [facility] [address] [id number] [place] [address]- 7564 Apr, [facility] [place] [facility] [address] [id number] [place] [address] 2546 Apr, [facility] [place] [facility] [address] [id number] [place] [address]- 8320 Apr, [facility] [address] [id number] [place] [address]- 9451 Mar, [facility] [place] [facility] [address] [id number] [place] [address]- 6501 Mar, [facility] [address] [id number] [place] [address]- 3997 Mar, [facility] [address] [id number] [place] [address]- 2491 Mar, [facility] [place] [facility] [address] [id number] [place] [address] Mar, [facility] [place] [facility] [address] [id number] [place] [address] February, [facility] [place] [facility] [address] [id number] [place] [address] February, [facility] [place] [facility] [address] [id number] [place] [address] February, [facility] [place] [facility] [address] [id number] [place] [address] February, [facility] [place] [facility] [address] [id number] [place] [address] February, [facility] [place] [facility] [address] [id number] [place] [address] February, [facility] [place] [facility] [address] [id number] [place] [address] February, [facility] [place] [facility] [address] [id number] [place] [address] 25 Jan, 2012 [facility] [place] [facility] [address] [id number] [place] [address] 18 Jan, 2012 [facility] [place] [facility] [address] [id number] [place] [address] 17 Jan, 2012 [facility] [place] [facility] [address] [id number] [place] [address] 13 Jan, 2012 [facility] [place] [facility] [address] [id number] [place] [address] 10 Jan, 2012 [facility] [place] [facility] [address] [id number] [place] [address] 04 Jan, 2012 [facility] [place] [facility] [address] [id number] [place] [address] 30 Dec, 2011 [facility] [place] [facility] [address] [id number] [place] [address] 24 Dec, 2011 [facility] [place] [facility] [address] [id number] [place] [address] Dec, [facility] [place] [facility] [address] [id number] [place] [address] Dec, [facility] [place] [facility] [address] [id number] [place] [address] Dec, [facility] [place] [facility] [address] [id number] [place] [address] 28 Nov, 2011 [facility] [place] [facility] [address] [id number] [place] [address] Nov, [facility] [place] [facility] [address] [id number] [place] [address] 25 Nov, 2011 [facility] [place] [facility] [address] [facility] [id number] [place] [address] 14 Nov, 2011 [facility] [place] [facility] [address] [id number] [place] [address] 10 Nov, 2011 [facility] [address] [id number] [place] [address] Nov, [facility] [place] [facility] [address] [id number] [place] [address] Oct, [facility] [address] [id number] [place] [address] Oct, [facility] [address] [id number] [place] [address] Oct, [facility] [place] [facility] [address] [id number] [place] [address] Oct, [facility] [address] [id number] [place] [address] Oct, [facility] [address] [id number] [place] [address] Sep, [facility] [address] [id number] [place] [address] Sep, [facility] [address] [id number] [place] [address] Sep, [facility] [address] [id number] [place] [address] 14 Sep, 2011 [facility] [place] [facility] [address] [id number] [place] [address] 14 Sep, 2011 [facility] [place] [facility] [address] [id number] [place] [address] 13 Sep, 2011 [facility] [place] [facility] [address] [id number] [place] [address] 12 Sep, 2011 [facility] [place] [facility] [address] [id number] [place] [address] 1402 09 Sep, 2011 [facility] [place] [facility] [address] [id number] [place] [address] Sep, [facility] [place] [facility] [address] [id number] [place] [address] Aug, [facility] [place] [facility] [address] [id number] [place] [address] 7818 Aug, [facility] [place] [facility] [address] [facility] [id number] [place] [address] 16[address] Aug, [facility] [place] [facility] [address] [id number], [place] [address] Aug, [facility] [place] [facility] [address] [id number] [place] [address] Aug, [facility] [place] [facility] [address] [id number], [place] [address] Aug, [facility] [place] [facility] [address] [id number], [place] [address] Aug, [facility] [place] [facility] [address] [id number], [place] [address] Aug, [facility] [place] [facility] [address] [id number], [place] [address]37 Aug, [facility] [place] [facility] [address] [id number], [place] [address] Aug, [facility] [place] [facility] [address] [id number], [place] [address]- [address] Aug, [facility] [place] [facility] [address] [id number], [place] [address] Aug, [facility] [place] [facility] [address] [id number], [place] [address]- [address]85 Jul, [facility] [place] [facility] [address] [id number], [place] [address] Jul, [facility] [place] [facility] [address] [id number], [place] [address] Jul, [facility] [place] [facility] [id number] [address] Jul, [facility] [id number], [place] [address] Jul, [facility] [id number], [place] [address] Jul, [facility] [id number], [place] [address] Jul, [facility] [id number] [place] [address] Jul, [facility] [id number] [place] [address]- 2917 Jul, [facility] [id number] [place] [address]- [address] Jul, [facility] [id number] [place] [address]- 6479 Nov, [facility] [id number], [place] [address] Aug, [facility] [id number] [place] [address]- 6216 Aug, [facility] [id number], [place] [address] Aug, [facility] [address] [id number], [place] [address] Aug, [facility] [id number], [place] [address] Jul, IMMUNIZATIONS No Known Immunizations SOCIAL HISTORY Never Assessed REASON FOR VISIT medication PLAN OF CARE VITAL SIGNS MEDICATIONS Medication Instructions Dosage Frequency Start Date End Date Duration Status Intuniv 2 MG Orally Once a day 1 tablet 24h Active RESULTS No Results PROCEDURES No Known procedures INSTRUCTIONS MEDICATIONS ADMINISTERED No Known Medications MEDICAL (GENERAL) HISTORY Type Description Date Medical History diabetes Medical History thyroid Surgical History appendix Surgical History gallbladder Surgical History eyes Surgical History hip Surgical History MRI on back and pelvis 06/08 Hospitalization History surgeries Hospitalization History [facility] Suicide attempt by hanging 06/14/2016 Hospitalization History [facility] 01/30/2018-02/10/2008 Hospitalization History [facility] 05/04/18-05/09/18
--- OUTSIDE RECORDS SUMMARY | 2018-08-15 20:11 | XMS REPORT ---
Author Author REGAN SAWYER Organization 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 07936506 Problem Schizoaffective disorder, depressive type F25.1 Active 74742383 Problem Borderline personality disorder F60.3 Active 50025646 Problem Attention deficit hyperactivity disorder (ADHD), inattentive type, 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 51517684 Problem Schizoaffective disorder, unspecified F25.9 Active 98126064 Problem High risk medication use Z79.899 Active 697594334 Problem Posttraumatic stress disorder F43.10 Active 29956821 Problem Obsessive-compulsive disorders 300.3 Active 025677015 Problem Generalized anxiety disorder 300.02 Active 98051294 Problem Attention deficit disorder 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 314.00 Active 35955891 Problem Bipolar disorder, unspecified 296.80 Active 70546015 Problem Posttraumatic stress disorder 309.81 Active 60167264 Problem Paranoid schizophrenia, unspecified condition 295.30 Active 62658127 ALLERGIES Substance Reaction Event Type Date Status [place] agitation/homicidal Drug Allergy May, Active Latuda agitation Drug Allergy May, Active Penicillamine bronchospasm and rash Drug Allergy May, Active Cephalexin visual disturbances Drug Allergy May, Active Ceftin visual disturbance Drug Allergy May, Active Biaxin bronchospasm Drug Allergy May, Active Cymbalta 30 Mg Capsule, Delayed Release(e.c.) nausea Non Drug Allergy May Active Brintellix 10 Mg Tablet nausea and vomiting Non Drug Allergy May, Active ENCOUNTERS Encounter Location Date Diagnosis [facility] [address] [address] Jul, 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 [address] [address] May, [facility] [address] [address] May, Paranoid schizophrenia F20.0 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 [address] [address] Apr, 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 [address] [address] Apr, [facility] [address] [address] Apr, Schizoaffective disorder, depressive type F25.1 and Borderline personality disorder F60.3 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 [address] [address] Apr, 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 [address] [address] Apr, [facility] [address] [address] Mar, Paranoid schizophrenia F20.0 [facility] [address] [address] Mar, 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 [address] [address] February, Paranoid schizophrenia F20.0 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 [address] [address] February, [facility] [address] [address]- 97[address] February, Paranoid schizophrenia F20.0 [facility] [address] [address] 32[address] February, Paranoid schizophrenia F20.0 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 [address] [address]- [address] Jan, Paranoid schizophrenia F20.0 [facility] [address] [address] 7[address] Jan, Paranoid schizophrenia F20.0 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 [address] [address] Dec, 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 [address] [address] Nov, [facility] [address] [address]- [address] Oct, Paranoid schizophrenia F20.0 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 [id number] [place] [address] Oct, [facility] [id number] [place] [address]- 8[address] Oct, [facility] [address] [address]- [address] Sep, 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 [address] [address]- 8[address] Sep, Paranoid schizophrenia F20.0 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 [address] [address]- 98[address] Aug, 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 [address] [address]- 7[address] Jul, Paranoid schizophrenia F20.0 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 [address] [address]- 2901 May, Other senior living (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 Z79.899 [facility] [address] [address]- 2214 May, [facility] [address] [address]- 75[address] May, 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 [address] [address]- 0424 May, 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 [address] [address]- 1496 Apr, Paranoid schizophrenia F20.0 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 [address] [address]- 9[address] February, 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 [address] [address]- 77[address] 13 Nov, 2016 High risk medication use Z79.899 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 [address] [address]- 1660 Aug, 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 [address] [facility] [id number] [address]- [address] Jul, 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 [address] [facility] [id number] [address]- 27[address] Jun, [facility] [id number] [place] [address] 04253- 9911 May, Paranoid schizophrenia F20.0 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 [address] [facility] [id number] [place] [address]- 5261 May, [facility] [address] [facility] [id number] [address]- 7969 May, Paranoid schizophrenia F20.0 [facility] [address] [facility] [id number] [address]- 2051 May, [facility] [address] [facility] [id number] [place] [address]- 5409 May, Paranoid schizophrenia F20.0 [facility] [address] [facility] [id number] [place] [address]- 9800 May, Schizoaffective disorder, unspecified F25.9 [facility] [address] [facility] [id number] [place] [address]- 7786 May, Schizoaffective disorder, unspecified F25.9 [facility] [address] [facility] [id number] [place] [address]- 4560 May, [facility] [address] [facility] [id number] [place] [address]- 4622 May, Paranoid schizophrenia F20.0 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 [address] [facility] [id number] [place] [address]- 9918 Mar, 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 [id number] [address]- 1333 Mar, Paranoid schizophrenia F20.0 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 [id number] [address]- 7717 Mar, 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 [address] [facility] [id number] [address]- 6566 February, [facility] [id number] [address]- 8607 February, [facility] [address] [address]- 5088 February, [facility] [id number] [place] [address] 01371- 5764 February, [facility] [id number] [place] [address] 00735- 2893 Jan, Paranoid schizophrenia F20.0 [facility] [id number] [place] [id number] Jan, Dental examination Z01.20 [facility] [id number] [place] [id number] Jan, Dental caries K02.9 [facility] [id number] [place] [id number] Jan, Dental examination Z01.20 [facility] [id number] [place] [id number] Dec, Encounter for dental examination Z01.20 [facility] [id number] [place] [address] 42548- 9179 Dec, Paranoid schizophrenia F20.0 [facility] [id number] [place] [address] [id number] Dec, Dental examination Z01.20 [facility] [id number] [place] [address] 56709- 0835 Dec, 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 [address] [address]- 7914 Nov, Schizoaffective disorder, unspecified F25.9 [facility] [address] [address]- 6014 Oct, Paranoid schizophrenia F20.0 [facility] [address] [address]- 8137 Oct, 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 [address] [address]- 4582 Sep, 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 [address] [address]- 6038 Aug, Paranoid schizophrenia F20.0 [facility] [address] [address]- 9183 Aug, 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 [address] [address]- 0518 Jul, Bipolar disorder, unspecified F31.9 [facility] [address] [address]- 3185 Jul, [facility] [address] [address]- 0210 Jun, [facility] [address] [address]- 1467 Jun, Schizoaffective disorder, chronic 295.72 ; Posttraumatic stress disorder 309.81 and Attention deficit disorder 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 314.00 [facility] [address] [address]- 8738 May, [facility] [address] [address]- 5137 May, [facility] [address] [address]- 1320 May, Schizoaffective disorder, chronic 295.72 ; Posttraumatic stress disorder 309.81 ; Attention deficit disorder 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 314.00 and Bipolar disorder, unspecified 296.80 [facility] [address] [address]- 0020 Apr, Schizoaffective disorder, chronic 295.72 [facility] [address]005[address] [address]- 0737 Apr, [facility] [id number] [place] [address] 09673- 2375 Apr, Schizoaffective disorder, chronic 295.72 ; Posttraumatic stress disorder 309.81 and Attention deficit disorder 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 314.00 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 [address] [address]- 7438 Mar, [facility] [address] [address]- 2968 Mar, [facility] [address] [address]- 7817 Mar, [facility] [address] [address]- 5696 Mar, [facility] [id number] [address]- 7285 February, Schizoaffective disorder, chronic 295.72 [facility] [address] [id number] [address]- 3583 February, [facility] [address] [address]- 7526 February, Attention deficit disorder 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 314.00 ; Posttraumatic stress disorder 309.81 and Schizoaffective disorder, chronic 295.72 [facility] [address] [address]- 9856 Jan, [facility] [address] [address]- 7456 Jan, [facility] [address] [address]- 2236 Jan, [facility] [id number] [address] Dec, [facility] [id number] [address] Dec, [facility] [id number] [address] Dec, [facility] [id number] [address] Dec, [facility] [id number] [address] Dec, [facility] [id number] [address] Dec, [facility] [id number] [address] Dec, [facility] [facility] [id number] [address] Dec, [facility] [id number] [address] Nov, [facility] [id number] [address] Nov, [facility] [place] [facility] [address] [id number] [place] [address] 8707 Nov, [facility] [place] [facility] [address] [id number] [place] [address] 8936 Nov, [facility] [place] [facility] [address] [id number] [place] [address]- 0096 Nov, [facility] [place] [facility] [address] [id number] [place] [address] 8280 Nov, [facility] [place] [facility] [address] [id number] [place] [address]- 1520 Nov, [facility] [place] [facility] [address] [id number] [place] [address]- 0918 Nov, [facility] [place] [facility] [address] [id number] [place] [address]- [address]207 Nov, [facility] [place] [facility] [address] [id number] [place] [address]- 5627 Nov, [facility] [place] [facility] [address] [id number] [place] [address]- 6199 Oct, [facility] [place] [facility] [address] [id number] [place] [address]- 6217 Oct, [facility] [place] [facility] [address] [id number] [address] Oct, [facility] [place] [facility] [address] [id number] [address] 3467 Oct, [facility] [place] [facility] [address] [id number] [place] [address]- 8399 Oct, [facility] [place] [facility] [address] [id number] [place] [address]- 9632 Oct, [facility] [place] [facility] [address] [id number] [place] [address]- 9833 Oct, [facility] [place] [facility] [address] [id number] [place] [address]- 8539 17 Sep, 2014 [facility] [place] [facility] [address] [id number] [place] [address]- 0278 17 Sep, 2014 [facility] [place] [facility] [address] [id number] [place] [address]- 1825 15 Sep, 2014 [facility] [place] [facility] [address] [id number] [place] [address]- 2313 15 Sep, 2014 [facility] [place] [facility] [address] [id number] [place] [address]- 3130 20 Aug, 2014 [facility] [place] [facility] [address] [id number] [place] [address]- 2888 20 Aug, 2014 [facility] [place] [facility] [address] [id number] [place] [address]- 0813 14 Aug, 2014 [facility] [place] [facility] [address] [id number] [place] [address]- 4954 Aug, [facility] [place] [facility] [address] [id number] [place] [address]- 1574 14 Aug, 2014 [facility] [place] [facility] [address] [id number] [place] [address]- 7510 Aug, [facility] [place] [facility] [address] [facility] [id number] [place] [address]- 0672 29 Jul, 2014 [facility] [place] [facility] [address] [id number] [place] [address]- 8324 29 Jul, 2014 [facility] [place] [facility] [address] [id number] [place] [address]- 5692 24 Jul, 2014 [facility] [place] [facility] [address] [id number] [place] [address]- 0398 24 Jul, 2014 [facility] [place] [facility] [address] [id number] [place] [address]- 4656 15 Jul, 2014 [facility] [place] [facility] [address] [id number] [place] [address]- 8729 15 Jul, 2014 [facility] [place] [facility] [address] [id number] [place] [address]- 8816 27 Jun, 2013 [facility] [place] [facility] [address] [id number] [place] [address]- 3946 27 Jun, 2013 [facility] [place] [facility] [address] [id number] [place] [address]- 6292 Jun, 2013 [facility] [place] [facility] [address] [id number] [place] [address]- 9268 Jun, 2013 [facility] [place] [facility] [address] [id number] [place] [address]- 8256 Jun, 2013 [facility] [place] [facility] [address] [id number] [place] [address]- 9466 Jun, 2013 [facility] [place] [facility] [address] [id number] [place] [address]- 4540 16 Jun, 2013 [facility] [place] [facility] [address] [id number] [place] [address]- 7663 16 Jun, 2013 [facility] [place] [facility] [address] [id number] [place] [address]- 3417 Jun, 2013 [facility] [place] [facility] [address] [id number] [place] [address]- 0495 16 Jun, 2013 [facility] [place] [facility] [address] [id number] [place] [address]- 0010 Jun, [facility] [place] [facility] [address] [id number] [place] [address]- 4200 May, [facility] [place] [facility] [address] [id number] [place] [address]- 2545 May, [facility] [place] [facility] [address] [id number] [place] [address]- 3011 May, [facility] [place] [facility] [address] [id number] [place] [address]- 5525 May, [facility] [place] [facility] [address] [id number] [place] [address]- 6355 May, [facility] [place] [facility] [address] [id number] [place] [address]- 0833 May, [facility] [place] [facility] [address] [id number] [place] [address]- 0503 May, [facility] [place] [facility] [address] [id number] [place] [address]- 9804 May, [facility] [place] [facility] [address] [id number] [place] [address]- 7455 May, [facility] [place] [facility] [address] [id number] [place] [address]- 5871 May, [facility] [place] [facility] [address] [id number] [place] [address]- 0557 Apr, [facility] [place] [facility] [address] [id number] [place] [address]- 2230 Apr, [facility] [place] [facility] [address] [id number] [place] [address]- 7900 Apr, [facility] [place] [facility] [address] [id number] [place] [address]- 2991 Apr, [facility] [place] [facility] [address] [id number] [place] [address]- 3697 Apr, [facility] [place] [facility] [address] [id number] [place] [address]- 1847 Apr, [facility] [place] [facility] [address] [id number] [place] [address]- 3436 Apr, [facility] [place] [facility] [address] [id number] [place] [address]- 8597 Apr, [facility] [place] [facility] [address] [id number] [place] [address]- 2429 Apr, [facility] [place] [facility] [address] [id number] [place] [address]- 9922 Apr, [facility] [place] [facility] [address] [id number] [place] [address]- 0766 26 Mar, 2014 [facility] [place] [facility] [address] [id number] [place] [address]- 8117 Mar, [facility] [place] [facility] [address] [id number] [place] [address]- 9169 25 Mar, 2014 [facility] [place] [facility] [address] [id number] [place] [address]- 8095 24 Mar, 2014 [facility] [place] [facility] [address] [id number] [place] [address]- 4864 20 Mar, 2014 [facility] [place] [facility] [address] [id number] [place] [address]- 2277 18 Mar, 2014 [facility] [place] [facility] [address] [id number] [place] [address]- 6647 18 Mar, 2014 [facility] [place] [facility] [address] [id number] [place] [address]- 5118 16 Mar, 2014 [facility] [place] [facility] [address] [id number] [place] [address]- 0079 16 Mar, 2014 [facility] [place] [facility] [address] [id number] [place] [address]- 1531 Mar, [facility] [place] [facility] [address] [id number] [place] [address]- 0224 13 Mar, 2014 [facility] [place] [facility] [address] [id number] [place] [address]- 6224 Mar, [facility] [place] [facility] [address] [id number] [place] [address]- 7828 Mar, [facility] [place] [facility] [address] [id number] [place] [address]- 2928 10 Mar, 2014 [facility] [place] [facility] [address] [id number] [place] [address]- 3740 09 Mar, 2014 [facility] [place] [facility] [address] [id number] [place] [address]- 4618 Mar, [facility] [place] [facility] [address] [id number] [place] [address]- 8264 Mar, [facility] [place] [facility] [address] [id number] [place] [address]- 5701 Mar, [facility] [place] [facility] [address] [id number] [place] [address]- 3185 Mar, [facility] [place] [facility] [address] [id number] [place] [address]- 8367 Mar, [facility] [place] [facility] [address] [id number] [place] [address]- 7811 February, [facility] [place] [facility] [address] [id number] [place] [address]- 3617 February, [facility] [place] [facility] [address] [id number] [place] [address]- 7062 February, [facility] [place] [facility] [address] [id number] [place] [address]- 1160 February, [facility] [place] [facility] [address] [id number] [place] [address]- 5693 February, [facility] [place] [facility] [address] [id number] [place] [address]- 0888 February, [facility] [place] [facility] [address] [id number] [place] [address]- 9936 February, [facility] [place] [facility] [address] [id number] [place] [address]- 9114 February, [facility] [place] [facility] [address] [id number] [place] [address]- 7190 February, [facility] [place] [facility] [address] [id number] [place] [address]- 3317 February, [facility] [place] [facility] [address] [id number] [place] [address]- 9074 February, [facility] [place] [facility] [address] [id number] [place] [address]- 3402 February, [facility] [address] [id number] [place] [address]- 7472 February, [facility] [place] [facility] [address] [id number] [place] [address]- 1543 February, [facility] [place] [facility] [address] [id number] [place] [address]- 2093 February, [facility] [place] [facility] [address] [id number] [place] [address]- 9662 February, [facility] [place] [facility] [address] [id number] [place] [address]- 8507 February, [facility] [place] [facility] [address] [id number] [place] [address]- 1953 February, [facility] [address] [id number] [place] [address]- 8232 February, [facility] [place] [facility] [address] [id number] [place] [address]- 9919 February, [facility] [place] [facility] [address] [id number] [place] [address]- 9362 February, [facility] [place] [facility] [address] [id number] [place] [address]- 5047 Jan, [facility] [place] [facility] [address] [id number] [place] [address]- 0152 Jan, [facility] [place] [facility] [address] [id number] [place] [address]- 2391 Jan, [facility] [place] [facility] [address] [id number] [place] [address]- 3147 Jan, [facility] [place] [facility] [address] [id number] [place] [address]- 1358 Jan, [facility] [place] [facility] [address] [id number] [place] [address]- 0107 Jan, [facility] [place] [facility] [address] [id number] [place] [address]- 1829 10 Jan, 2014 [facility] [place] [facility] [address] [id number] [place] [address]- 3733 10 Jan, 2014 [facility] [place] [facility] [address] [id number] [place] [address]- 4016 21 Dec, 2013 [facility] [place] [facility] [address] [id number] [place] [address]- 1005 20 Dec, 2013 [facility] [place] [facility] [address] [id number] [place] [address]- 1252 20 Dec, 2013 [facility] [place] [facility] [address] [id number] [place] [address]- 5163 19 Dec, 2013 [facility] [place] [facility] [address] [id number] [place] [address]- 9185 19 Dec, 2013 [facility] [place] [facility] [address] [id number] [place] [address]- 9103 15 Dec, 2013 [facility] [place] [facility] [address] [id number] [place] [address]- 6105 15 Dec, 2013 [facility] [place] [facility] [address] [id number] [place] [address]- 8094 11 Dec, 2013 [facility] [place] [facility] [address] [id number] [place] [address]- 1956 10 Dec, 2013 [facility] [place] [facility] [address] [id number] [place] [address]- 9303 10 Dec, 2013 [facility] [place] [facility] [address] [id number] [place] [address]- 0690 18 Nov, 2013 [facility] [place] [facility] [address] [id number] [place] [address]- 0911 17 Nov, 2013 [facility] [place] [facility] [address] [id number] [place] [address]- 9186 17 Nov, 2013 [facility] [place] [facility] [address] [id number] [address]- 5366 Nov, [facility] [place] [facility] [address] [id number] [place] [address]31 Nov, [facility] [place] [facility] [address] [id number] [place] [address]- 7643 Oct, [facility] [place] [facility] [address] [id number] [place] [address]- 2496 Oct, [facility] [place] [facility] [address] [id number] [place] [address]- 8056 Oct, [facility] [place] [facility] [address] [id number] [place] Sep, [facility] [place] [facility] [address] [id number] [place] [address]- 6511 Sep, [facility] [place] [facility] [address] [id number] [place] [address]- 9910 Sep, [facility] [place] [facility] [address] [id number] [place] [address]- 3079 Sep, [facility] [place] [facility] [address] [id number] [address]- 0537 Aug, [facility] [place] [facility] [address] [id number] [place] [address]- 2626 Aug, [facility] [place] [facility] [address] [id number] [address]- 3393 Jul, [facility] [place] [facility] [address] [id number] [place] [address]- 4769 Jul, [facility] [place] [facility] [address] [id number] [place] 6140 Jul, [facility] [place] [facility] [address] [id number] [place] [address]- 7270 Jul, [facility] [place] [facility] [address] [id number] [place] [address]- 5822 Jul, [facility] [place] [facility] [address] [id number] [place] [address]- 3401 25 Jun, 2012 [facility] [address] [id number] [place] [address]- 6976 25 Jun, 2012 [facility] [address] [id number] [place] [address]- 2546 19 Jun, 2012 [facility] [address] [id number] [place] [address]- 4750 18 Jun, 2012 [facility] [address] [id number] [place] [address]- 4564 16 Jun, 2012 [facility] [address] [id number] [place] [address]- 4263 12 Jun, 2013 [facility] [address] [id number] [place] [address]- 3643 11 Jun, 2013 [facility] [address] [id number] [place] [address]- 9028 30 May, 2013 [facility] [address] [id number] [place] [address]- 4726 May, [facility] [address] [id number] [place] [address]- 2217 Apr, [facility] [address] [id number] [place] [address]- 8121 Apr, [facility] [address] [id number] [place] [address]- 1077 Apr, [facility] [address] [id number] [place] [address]- 0795 Mar, [facility] [place] [facility] [address] [id number] [place] [address]- 6619 Mar, [facility] [place] [facility] [address] [id number] [place] [address]- 5769 February, [facility] [address] [id number] [place] [address]291 February, [facility] [address] [id number] [place] [address]- 5214 February, [facility] [address] [id number] [place] [address]- 6975 February, [facility] [address] [id number] [place] [address]- 9030 Jan, [facility] [place] [facility] [address] [id number] [place] [address]- 7732 Jan, [facility] [address] [id number] [place] [address]- 1139 Jan, [facility] [address] [id number] [place] [address]- 4350 Dec, [facility] [address] [id number] [place] [address]- 7161 Dec, [facility] [address] [id number] [place] [address]- 4814 Dec, [facility] [address] [id number] [place] [address]- 8371 Dec, [facility] [address] [id number] [place] [address]- 6119 Nov, [facility] [address] [id number] [place] [address]- 2236 Nov, [facility] [place] [facility] [address] [id number] [place] [address]- 7112 Oct, [facility] [place] [facility] [address] [id number] [place] [address]- 1066 Oct, [facility] [place] [facility] [address] [id number] [place] [address]- 4814 Oct, [facility] [place] [facility] [address] [id number] [place] [address]- 3134 Oct, [facility] [place] [facility] [address] [id number] [place] [address]- 8541 Aug, [facility] [place] [facility] [address] [id number] [place] [address]- 9578 Aug, [facility] [place] [facility] [address] [id number] [place] [address]- 4387 Jun, [facility] [place] [facility] [address] [id number] [place] [address]- 8234 May, [facility] [place] [facility] [address] [id number] [place] [address]- 9212 May, [facility] [place] [facility] [address] [id number] [place] [address]- 8274 Apr, [facility] [place] [facility] [address] [id number] [place] [address]- 4597 Apr, [facility] [place] [facility] [address] [id number] [place] [address]- 4163 Apr, [facility] [place] [facility] [address] [id number] [place] [address]- 6715 Mar, [facility] [place] [facility] [address] [id number] [place] [address]- 6751 Mar, [facility] [place] [facility] [address] [id number] [place] [address]- 7397 Mar, [facility] [place] [facility] [address] [id number] [place] [address]- 3202 Mar, [facility] [place] [facility] [address] [id number] [place] [address]- 8126 Mar, [facility] [place] [facility] [address] [id number] [place] [address]- 5675 February, [facility] [place] [facility] [address] [id number] [place] [address]- 5496 February, [facility] [place] [facility] [address] [id number] [place] [address]- 8297 February, [facility] [place] [facility] [address] [id number] [place] [address] February, [facility] [address] [id number] [place] [address] February, [facility] [place] [facility] [address] [id number] [place] [address] February, [facility] [address] [id number] [place] [address] February, [facility] [address] [id number] [place] [address] Jan, [facility] [place] [facility] [address] [id number] [place] [address] 18 Jan, 2012 [facility] [address] [id number] [place] [address] 17 Jan, 2012 [facility] [address] [id number] [place] [address] 13 Jan, 2012 [facility] [address] [id number] [place] [address]134 10 Jan, 2012 [facility] [address] [id number] [place] [address] 9031 04 Jan, 2012 [facility] [place] [facility] [address] [id number] [place] [address]64 30 Dec, 2011 [facility] [place] [facility] [address] [id number] [place] [address] 24 Dec, 2011 [facility] [place] [facility] [address] [id number] [place] [address] 79[address] 20 Dec, 2011 [facility] [place] [facility] [address] [id number] [place] [address]393 13 Dec, 2011 [facility] [place] [facility] [address] [id number] [place] [address] 06 Dec, 2011 [facility] [place] [facility] [address] [id number] [place] [address] 28 Nov, 2011 [facility] [address] [id number] [place] [address] Nov, [facility] [address] [id number] [place] [address]266 25 Nov, 2011 [facility] [address] [id number] [place] [address] 14 Nov, 2011 [facility] [address] [id number] [place] [address]- [address]131 10 Nov, 2011 [facility] [address] [id number] [place] [address]6 Nov, [facility] [address] [id number] [place] [address] Oct, [facility] [address] [id number] [place] [address] Oct, [facility] [address] [id number] [place] [address] Oct, [facility] [address] [id number] [place] [address] Oct, [facility] [address] [id number] [place] [address]120 Oct, [facility] [address] [id number] [place] [address] Sep, [facility] [address] [id number] [place] [address]40 Sep, [facility] [address] [id number] [place] [address] Sep, [facility] [place] [facility] [address] [id number] [place] [address] Sep, [facility] [address] [id number] [place] [address]31 Sep, [facility] [place] [facility] [address] [id number] [place] [address] 8326 Sep, [facility] [place] [facility] [address] [id number] [place] [address] 0466 Sep, [facility] [place] [facility] [address] [id number] [place] [address] 2549 Sep, [facility] [place] [facility] [address] [id number] [place] [address]- [address]296 Sep, [facility] [place] [facility] [address] [id number] [place] [address] Aug, [facility] [place] [facility] [address] [id number] [place] [address] 4514 Aug, [facility] [place] [facility] [address] [id number] [place] [address]- 9678 Aug, [facility] [place] [facility] [address] [id number] [place] [address]117 Aug, [facility] [place] [facility] [address] [id number] [place] [address]- 4677 Aug, [facility] [place] [facility] [address] [id number] [place] [address]- 3835 Aug, [facility] [place] [facility] [address] [id number] [place] [address]- 1757 Aug, [facility] [place] [facility] [address] [id number] [place] [address] 3737 Aug, [facility] [place] [facility] [address] [id number] [place] [address]- 5210 Aug, [facility] [place] [facility] [address] [id number] [place] [address] Aug, [facility] [place] [facility] [address] [id number] [place] [address]- 2543 Aug, [facility] [place] [facility] [address] [id number] [place] [address]- 5554 Aug, [facility] [place] [facility] [address] [id number] [place] [address]- 8165 Jul, [facility] [place] [facility] [address] [id number] [place] [address] 9372 Jul, [facility] [place] [facility] [address] [id number] [place] [address] 4327 Jul, [facility] [place] [facility] [address] [id number] [place] [address]- 6192 Jul, [facility] [place] [facility] [address] [id number] [place] [address]- 1090 Jul, [facility] [place] [facility] [address] [id number] [place] [address]- 2804 Jul, [facility] [place] [facility] [address] [id number] [place] [address] 6710 Jul, [facility] [place] [facility] [address] [id number] [address] Jul, [facility] [place] [facility] [address] [id number] [place] [address]- 5706 Jul, [facility] [place] [facility] [address] [id number] [place] [address]- 9132 Jul, [facility] [place] [facility] [address] [id number] [place] [address] Nov, [facility] [place] [facility] [address] [id number] [place] [address] Aug, [facility] [place] [facility] [address] [id number] [place] [address]- 0864 Aug, [facility] [place] [facility] [address] [facility] [id number] [place] [address]- [address] Aug, [facility] [place] [facility] [address] [id number] [place] [address]- [address] Aug, [facility] [place] [facility] [address] [facility] [id number] [place] [address] Jul, IMMUNIZATIONS No Known Immunizations SOCIAL HISTORY Never Assessed REASON FOR VISIT f/u----Benson PLAN OF CARE Activity Details Follow Up 2 Weeks Reason: f/u VITAL SIGNS Height 65.75 in 2018-05-24 Weight 191 lbs 2018-05-24 Heart Rate 70 bpm 2018-05-24 Respiratory Rate 20 2018-05-24 BMI 31.06 kg/m2 2018-05-24 Blood pressure systolic 112 mmHg 2018-05-24 Blood pressure diastolic 74 mmHg 2018-05-24 MEDICATIONS Medication Instructions Dosage Frequency Start Date End Date Duration Status Nitrofurantoin Monohyd Macro 100 MG Orally every 12 hrs 1 capsule with food 12h Not-Taking Trintellix 20 mg orally Once a day 1 tablet 24h Active Trileptal 600 MG Orally Twice a day 1 tablet 12h Active Metformin HCl 1000 MG Orally 2 times a day 1 tablet 12h Not-Taking Levothyroxine Sodium 75 MCG Orally Once a day 1 tablet on an empty stomach in the morning 24h Active Cyproheptadine HCl 4 MG Orally Twice a day 1 tablet 12h 30 days Active Invega 6 MG Orally Once a day 1 tablet in the morning 24h Active NovoLog Mix 70/30 (70-30) 100 UNIT/ML Subcutaneous 3 times a day 27 units 8h Active Levemir 100 UNIT/ML Subcutaneous at bedtime 70 units Active Intuniv 1 MG Orally 2 times a day 1 tablet 12h Active Topamax 100 mg Orally Twice a day 1.5 tablet 12h Active Hydrocodone-Acetaminophen 10-325 mg 1 Tablet by Oral route every 8 hours PRN pain Jul, Active Ventolin HFA 90 MCG/ACT Inhalation every 6 hrs 2 puffs as needed 6h Active RESULTS No Results PROCEDURES No Known procedures INSTRUCTIONS MEDICATIONS ADMINISTERED No Known Medications MEDICAL (GENERAL) HISTORY Type Description Date Medical History diabetes Medical History thyroid Surgical History appendix Surgical History gallbladder Surgical History eyes Surgical History hip Surgical History MRI on back and pelvis 06/08 Hospitalization History surgeries Hospitalization History [facility] Suicide attempt by hanging 06/14/2016 Hospitalization History [facility] 01/30/2018-02/10/2008 Hospitalization History [facility] 05/04/18-05/09/18
--- OUTSIDE RECORDS SUMMARY | 2018-08-15 20:12 | XMS REPORT ---
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 68970198 Problem Schizoaffective disorder, depressive type F25.1 Active 05075381 Problem Borderline personality disorder F60.3 Active 44754252 Problem Attention deficit hyperactivity disorder (ADHD), inattentive type, 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 97748721 Problem Schizoaffective disorder, unspecified F25.9 Active 79920216 Problem High risk medication use Z79.899 Active 852462523 Problem Posttraumatic stress disorder F43.10 Active 32604042 Problem Obsessive-compulsive disorders 300.3 Active 250658459 Problem Generalized anxiety disorder 300.02 Active 79932212 Problem Attention deficit disorder 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 314.00 Active 25075103 Problem Bipolar disorder, unspecified 296.80 Active 59131649 Problem Posttraumatic stress disorder 309.81 Active 97975449 Problem Paranoid schizophrenia, unspecified condition 295.30 Active [id number] ALLERGIES No Information ENCOUNTERS Encounter Location Date Diagnosis [facility] [address] [facility] [id number] [address] Jul, [facility] [id number] [place] [address] 1843 May, Paranoid schizophrenia F20.0 ; Posttraumatic stress disorder F43.10 ; Attention deficit hyperactivity disorder (ADHD), inattentive type, 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 and Borderline personality disorder F60.3 [facility] [id number] [place] [address] 42514- 6637 May, [facility] [address] [facility] [id number], [place] [address] 8316 May, Paranoid schizophrenia F20.0 [facility] [address] [id number] [address] 9566 May, Paranoid schizophrenia F20.0 ; Posttraumatic stress disorder F43.10 ; Attention deficit hyperactivity disorder (ADHD), inattentive type, 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 and Borderline personality disorder F60.3 [facility] [address] [id number] [address] Apr, [facility] [address] [id number] [address] Apr, Paranoid schizophrenia F20.0 ; Posttraumatic stress disorder F43.10 ; Attention deficit hyperactivity disorder (ADHD), inattentive type, 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 and Borderline personality disorder F60.3 [facility] [address], [place] [address] Apr, [facility] [address] [id number] [address] 6630 Apr, Schizoaffective disorder, depressive type F25.1 and Borderline personality disorder F60.3 [facility] [address] [id number], [place] [address] 2227 Apr, Paranoid schizophrenia F20.0 ; Posttraumatic stress disorder F43.10 ; Attention deficit hyperactivity disorder (ADHD), inattentive type, 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 and Borderline personality disorder F60.3 [facility] [address] [facility] [id number], [place] [address] Apr, [facility] [address] [id number] [address] 7942 Apr, Paranoid schizophrenia F20.0 ; Posttraumatic stress disorder F43.10 ; Attention deficit hyperactivity disorder (ADHD), inattentive type, 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 and Borderline personality disorder F60.3 [facility] [address] [address] Apr, [facility] [address], [place] [address] 4594 Mar, Paranoid schizophrenia F20.0 [facility] [address], [place] [address] 9225 Mar, [facility] [address], [place] [address] 6427 Mar, Paranoid schizophrenia F20.0 ; Posttraumatic stress disorder F43.10 ; Attention deficit hyperactivity disorder (ADHD), inattentive type, 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 and Borderline personality disorder F60.3 [facility] [address], [place] [address] 9042 February, Paranoid schizophrenia F20.0 [facility] [address] [address] 4841 February, Paranoid schizophrenia F20.0 ; Posttraumatic stress disorder F43.10 ; Attention deficit hyperactivity disorder (ADHD), inattentive type, 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 and Borderline personality disorder F60.3 [facility] [address], [place] [address] 9685 February, Paranoid schizophrenia F20.0 ; Posttraumatic stress disorder F43.10 ; Attention deficit hyperactivity disorder (ADHD), inattentive type, 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 and Borderline personality disorder F60.3 [facility] [address] [address] 2304 February, [facility] [address], [place] [address]- 8400 February, Paranoid schizophrenia F20.0 [facility] [address], [place] [address]- 7235 February, Paranoid schizophrenia F20.0 [facility] [address] [id number] [address] 0849 February, Paranoid schizophrenia F20.0 ; Posttraumatic stress disorder F43.10 ; Attention deficit hyperactivity disorder (ADHD), inattentive type, 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 and Borderline personality disorder F60.3 [facility] [address], [place] [address] 8496 Jan, Paranoid schizophrenia F20.0 ; Posttraumatic stress disorder F43.10 ; Attention deficit hyperactivity disorder (ADHD), inattentive type, 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 and Borderline personality disorder F60.3 [facility] [id number] [place] [address] 64958- 8891 Jan, Paranoid schizophrenia F20.0 [facility] [id number] [place] [address] 67643- 5354 Jan, Paranoid schizophrenia F20.0 [facility] [address] [id number] [address]- 8841 Jan, Paranoid schizophrenia F20.0 ; Posttraumatic stress disorder F43.10 ; Attention deficit hyperactivity disorder (ADHD), inattentive type, 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 and Borderline personality disorder F60.3 [facility] [address], [place] [address] 2064 Dec, [facility] [address], [place] [address]- 6927 Nov, Paranoid schizophrenia F20.0 ; Posttraumatic stress disorder F43.10 ; Attention deficit hyperactivity disorder (ADHD), inattentive type, 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 and Borderline personality disorder F60.3 [facility] [address], [place] [address] 6918 Nov, [facility] [address], [place] [address]- 9895 Oct, Paranoid schizophrenia F20.0 [facility] [id number] [address]- 2889 Oct, Paranoid schizophrenia F20.0 ; Posttraumatic stress disorder F43.10 ; Attention deficit hyperactivity disorder (ADHD), inattentive type, 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 ; Borderline personality disorder F60.3 and 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 [facility] [address], [place] [address]- 269[address] Oct, [facility] [address], [place] [address]- 4886 Oct, [facility] [address], [place] [address]- 7040 Sep, [facility] [address], [place] [address]- 8299 Sep, Paranoid schizophrenia F20.0 ; Posttraumatic stress disorder F43.10 ; Attention deficit hyperactivity disorder (ADHD), inattentive type, 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 and Borderline personality disorder F60.3 [facility] [address], [place] [address]- 3391 Sep, Paranoid schizophrenia F20.0 [facility] [address], [place] [address]- 7171 Aug, Paranoid schizophrenia F20.0 ; Posttraumatic stress disorder F43.10 ; Attention deficit hyperactivity disorder (ADHD), inattentive type, 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 and Borderline personality disorder F60.3 [facility] [address], [place] [address]- 4793 Aug, Paranoid schizophrenia F20.0 ; Posttraumatic stress disorder F43.10 ; Attention deficit hyperactivity disorder (ADHD), inattentive type, 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 and Borderline personality disorder F60.3 [facility] [address], [place] [address]- 8288 Aug, [facility] [address], [place] [address]- 5017 Jul, Paranoid schizophrenia F20.0 ; Posttraumatic stress disorder F43.10 ; Attention deficit hyperactivity disorder (ADHD), inattentive type, 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 and Borderline personality disorder F60.3 [facility] [address], [place] [address]- 5861 Jul, Paranoid schizophrenia F20.0 [facility] [address], [place] [address]- 7430 Jul, Paranoid schizophrenia F20.0 ; Posttraumatic stress disorder F43.10 ; Attention deficit hyperactivity disorder (ADHD), inattentive type, 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 and Borderline personality disorder F60.3 [facility] [address], [place] [address]- 1516 Jun, Paranoid schizophrenia F20.0 ; Posttraumatic stress disorder F43.10 ; Attention deficit hyperactivity disorder (ADHD), inattentive type, 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 and Borderline personality disorder F60.3 [facility] [address], [place] [address]- 9968 May, Other mcfp (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 Z79.899 [facility] [address], [place] [address]- 1892 May, [facility] [address], [place] [address]- 7749 May, [facility] [address], [place] [address]- 3850 May, Attention deficit hyperactivity disorder (ADHD), inattentive type, 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 [facility] [address], [place] [address]- 2945 May, [facility] [address], [place] [address]- 4415 May, Attention deficit hyperactivity disorder (ADHD), inattentive type, 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 [facility] [address], [place] [address]- 8439 May, Paranoid schizophrenia F20.0 ; Posttraumatic stress disorder F43.10 ; Attention deficit hyperactivity disorder (ADHD), inattentive type, 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 and 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 [facility] [id number], [place] [address]- 3603 Apr, Paranoid schizophrenia F20.0 [facility] [address], [place] [address]- 9855 Apr, Paranoid schizophrenia F20.0 ; Posttraumatic stress disorder F43.10 and Attention deficit hyperactivity disorder (ADHD), inattentive type, 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 [facility] [address], [place] [address]- 8480 February, [facility] [address], [place] [address]- 9259 February, Paranoid schizophrenia F20.0 ; Posttraumatic stress disorder F43.10 and Attention deficit hyperactivity disorder (ADHD), inattentive type, 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 [facility] [address], [place] [address]- 3910 February, Paranoid schizophrenia F20.0 ; Posttraumatic stress disorder F43.10 and Attention deficit hyperactivity disorder (ADHD), inattentive type, 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 [facility] [address], [place] [address]- 7802 Jan, Paranoid schizophrenia F20.0 ; Posttraumatic stress disorder F43.10 and Attention deficit hyperactivity disorder (ADHD), inattentive type, 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 [facility] [address] [id number] Dec, Dental examination Z01.20 [facility] [address] [id number] [address] Nov, Dental examination Z01.20 [facility] [address] [id number] [address] Nov, Dental examination Z01.20 [facility] [address] [address] Nov, Dental caries K02.9 [facility] [address], [place] [address]- 9807 Nov, High risk medication use Z79.899 [facility] [address], [place] [address]- 2740 Nov, Paranoid schizophrenia F20.0 ; Posttraumatic stress disorder F43.10 ; Attention deficit hyperactivity disorder (ADHD), inattentive type, 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 and Borderline personality disorder in adult F60.3 [facility] [address] [place] [id number] Oct, Dental caries K02.9 [facility] [id number] [place] [address] 78613- 9801 Sep, Paranoid schizophrenia F20.0 ; Posttraumatic stress disorder F43.10 and Attention deficit hyperactivity disorder (ADHD), inattentive type, 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 [facility] [address] [place] [address] 11024- 4757 Aug, Paranoid schizophrenia F20.0 ; Posttraumatic stress disorder F43.10 and Attention deficit hyperactivity disorder (ADHD), inattentive type, 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 [facility] [address], [place] [address]199 Aug, Strep throat J02.0 and Cough R05 [facility] [address] [place] [address] 39082- 1688 Aug, [facility] [address] [place] [address] 05473- 8029 Jul, Paranoid schizophrenia F20.0 ; Posttraumatic stress disorder F43.10 and Attention deficit hyperactivity disorder (ADHD), inattentive type, 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 [facility] [address], [place] [address]- 9243 Jul, [facility] [id number] [place] [address] 96704- 9348 Jun, Paranoid schizophrenia F20.0 ; Posttraumatic stress disorder F43.10 and Attention deficit hyperactivity disorder (ADHD), inattentive type, 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 [facility] [address] [address] Jun, Dental examination Z01.20 [facility] [address] [place] [address] 47237- 1994 Jun, [facility] [id number] [place] [address] 64957- 0070 May, Paranoid schizophrenia F20.0 [facility] [id number] [place] [address] 62764- 3055 May, Paranoid schizophrenia F20.0 ; Posttraumatic stress disorder F43.10 and Attention deficit hyperactivity disorder (ADHD), inattentive type, 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 [facility] [address] [place] [address] 07095- 9455 May, [facility] [id number] [place] [address] 62174- 2225 May, Paranoid schizophrenia F20.0 [facility] [address] [place] [address] 97803- 8027 May, [facility] [address] [place] [address] 29000- 7776 May, Paranoid schizophrenia F20.0 [facility] [id number] [place] [address] 17047- 8829 May, Schizoaffective disorder, unspecified F25.9 [facility] [address], [place] [address]- 3172 May, Schizoaffective disorder, unspecified F25.9 [facility] [id number], [place] [address]- 5418 May, [facility] [id number] [place] [address] 59847- 9668 May, Paranoid schizophrenia F20.0 [facility] [id number], [place] [address]- 0011 May, Paranoid schizophrenia F20.0 ; Posttraumatic stress disorder F43.10 and Attention deficit hyperactivity disorder (ADHD), inattentive type, 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 [facility] [address] [id number] [place] [address]- 6256 Mar, [facility] [address] [id number] [place] [address] 1876 Mar, Paranoid schizophrenia F20.0 ; Posttraumatic stress disorder F43.10 and Attention deficit hyperactivity disorder (ADHD), inattentive type, 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 [facility] [address] [id number] [place] [address]- 7638 Mar, Paranoid schizophrenia F20.0 [facility] [address] [facility] [id number] [place] [address]- 1820 Mar, Paranoid schizophrenia F20.0 ; Attention deficit hyperactivity disorder (ADHD), inattentive type, 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 and Posttraumatic stress disorder F43.10 [facility] [address] [facility] [id number] [place] [address]- 4325 Mar, [facility] [address] [facility] [id number] [place] [address] 1285 Mar, Paranoid schizophrenia F20.0 ; Posttraumatic stress disorder F43.10 and Attention deficit hyperactivity disorder (ADHD), inattentive type, 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 [facility] [address] [id number] [place] [address]- 1064 February, [facility] [address] [facility] [id number] [place] [address] 2756 February, [facility] [address] [id number] [place] [address]- 2894 February, [facility] [address] [facility] [id number] [place] [address] 9807 February, [facility] [address] [facility] [id number] [place] [address]- 2908 Jan, Paranoid schizophrenia F20.0 [facility] [place] [facility] [address] [id number] [address] Jan, Dental examination Z01.20 [facility] [address] [id number] [address] Jan, Dental caries K02.9 [facility] [address] [id number] [address] Jan, Dental examination Z01.20 [facility] [address] [id number] [address] Dec, Encounter for dental examination Z01.20 [facility] [address] [facility] [id number], [place] [address]- 0638 Dec, Paranoid schizophrenia F20.0 [facility] [address] [id number] [id number] Dec, Dental examination Z01.20 [facility] [address], [place] [address]- 9306 Dec, [facility] [id number], [place] [address]- 2664 Dec, Paranoid schizophrenia F20.0 ; Posttraumatic stress disorder F43.10 and Attention deficit hyperactivity disorder (ADHD), inattentive type, 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 [facility] [address], [place] [address]- 8654 Nov, Schizoaffective disorder, unspecified F25.9 [facility] [id number], [place] [address]- 8497 Oct, Paranoid schizophrenia F20.0 [facility] [id number], [place] [address]- 4876 Oct, [facility] [id number], [place] [address]- 9811 Sep, Paranoid schizophrenia F20.0 ; Posttraumatic stress disorder F43.10 and Attention deficit hyperactivity disorder (ADHD), inattentive type, 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 [facility] [address] [address]- 9947 Sep, [facility] [address] [place] [address] 25876- 7580 Sep, Paranoid schizophrenia F20.0 ; Posttraumatic stress disorder F43.10 and Attention deficit hyperactivity disorder (ADHD), inattentive type, 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 [facility] [id number] [place] [address] 22553- 6473 Aug, Paranoid schizophrenia F20.0 [facility] [address], [place] [address]- 1074 Aug, [facility] [id number] [place] [address] 89208- 2118 Aug, Posttraumatic stress disorder F43.10 ; Paranoid schizophrenia F20.0 and Attention deficit hyperactivity disorder (ADHD), inattentive type, 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 [facility] [address] [place] [address] 34446- 7664 Jul, Bipolar disorder, unspecified F31.9 [facility] [address], [place] [address]- 4247 Jul, [facility] [address] [id number], [place] [address]- 2819 Jun, [facility] [address], [place] [address]- 3507 Jun, Schizoaffective disorder, chronic 295.72 ; Posttraumatic stress disorder 309.81 and Attention deficit disorder 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 314.00 [facility] [address], [place] [address]- 1887 May, [facility] [id number] [place] [address] 67632- 0975 May, [facility] [address], [place] [address]- 8903 May, Schizoaffective disorder, chronic 295.72 ; Posttraumatic stress disorder 309.81 ; Attention deficit disorder 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 314.00 and Bipolar disorder, unspecified 296.80 [facility] [address], [place] [address]- 8278 Apr, Schizoaffective disorder, chronic 295.72 [facility] [address], [place] [address]- 2719 Apr, [facility] [id number] [place] [address] 22953- 2768 Apr, Schizoaffective disorder, chronic 295.72 ; Posttraumatic stress disorder 309.81 and Attention deficit disorder 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 314.00 [facility] [address] [place] [address] 86295- 4240 Mar, Disorganized schizophrenia, 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 [facility] [address] [id number], [place] [address]- 8824 Mar, [facility] [id number] [place] [address] 29236- 9812 Mar, [facility] [address], [place] [address]- 4788 Mar, [facility] [address], [place] [address]- 5682 Mar, [facility] [address], [place] [address]- 2468 February, Schizoaffective disorder, chronic 295.72 [facility] [address], [place] [address] February, [facility] [id number] [address] February, Attention deficit disorder 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 314.00 ; Posttraumatic stress disorder 309.81 and Schizoaffective disorder, chronic 295.72 [facility] [id number], [place] [address] Jan, [facility] [place] [facility] [address] [id number] [place] [address] 14 Jan, 2015 [facility] [place] [facility] [address] [id number] [place] [address]- 0763 Jan, [facility] [place] [facility] [address] [id number] [place] [address] Dec, [facility] [place] [facility] [address] [id number] [place] [address] 8773 Dec, [facility] [place] [facility] [address] [id number] [place] [address] 4488 Dec, [facility] [place] [facility] [address] [id number] [place] [address] 9739 Dec, [facility] [place] [facility] [address] [id number] [place] [address]- 5668 Dec, [facility] [place] [facility] [address] [id number] [place] [address] 7238 Dec, [facility] [place] [facility] [address] [id number] [place] [address] 0158 Dec, [facility] [place] [facility] [address] [id number] [place] [address] 9503 Dec, [facility] [place] [facility] [address] [id number] [place] [address] 3991 Nov, [facility] [place] [facility] [address] [id number] [place] [address] 6367 Nov, [facility] [place] [facility] [address] [id number] [place] [address]- 4680 Nov, [facility] [place] [facility] [address] [id number] [place] [address]- 2526 Nov, [facility] [place] [facility] [address] [id number] [place] [address]- 9571 Nov, [facility] [place] [facility] [address] [id number], [place] [address] 67[address] Nov, [facility] [place] [facility] [address] [id number] [place] [address]- 0153 Nov, [facility] [place] [facility] [address] [id number] [place] [address] Nov, [facility] [place] [facility] [address] [id number] [place] [address]- 3631 Nov, [facility] [place] [facility] [address] [id number] [place] [address]- 7453 Nov, [facility] [place] [facility] [address] [id number] [place] [address]- 8373 Oct, [facility] [place] [facility] [address] [id number] [place] [address] 1999 Oct, [facility] [place] [facility] [address] [id number] [place] [address]- 8322 Oct, [facility] [place] [facility] [address] [id number] [place] [address]- 6971 Oct, [facility] [place] [facility] [address] [id number] [place] [address]- 2571 Oct, [facility] [place] [facility] [address] [facility] [id number] [place] [address]- 8176 Oct, [facility] [place] [facility] [address] [id number] [place] [address]- 6719 Oct, [facility] [place] [facility] [address] [id number] [place] [address]- 3475 Sep, [facility] [place] [facility] [address] [id number] [place] [address]- 9681 Sep, [facility] [place] [facility] [address] [id number] [place] [address]- 7736 Sep, [facility] [place] [facility] [address] [id number] [place] [address]- 8996 Sep, [facility] [place] [facility] [address] [id number] [place] [address]- 5133 Aug, [facility] [place] [facility] [address] [id number] [place] [address]- 7698 Aug, [facility] [place] [facility] [address] [id number] [place] [address]- 2668 Aug, [facility] [place] [facility] [address] [id number] [place] [address]- 2529 Aug, [facility] [place] [facility] [address] [id number] [place] [address]- 4528 Aug, [facility] [place] [facility] [address] [id number] [place] [address]- 1035 Aug, [facility] [place] [facility] [address] [id number] [place] [address]- 0438 Jul, [facility] [place] [facility] [address] [id number] [place] [address]- 3839 Jul, [facility] [place] [facility] [address] [id number] [place] [address]- 8126 Jul, [facility] [place] [facility] [address] [id number] [place] [address]- 9099 Jul, [facility] [place] [facility] [address] [id number] [place] [address]- 9428 Jul, [facility] [place] [facility] [address] [id number] [place] [address]- 5179 Jul, [facility] [place] [facility] [address] [id number] [place] [address]- 6204 Jun, [facility] [place] [facility] [address] [id number] [place] [address]- 9322 27 Jun, 2014 [facility] [place] [facility] [address] [id number] [place] [address]- 7616 26 Jun, 2014 [facility] [place] [facility] [address] [id number] [place] [address]- 9623 Jun, 2013 [facility] [place] [facility] [address] [id number] [place] [address]- 1606 Jun, 2013 [facility] [place] [facility] [address] [id number] [place] [address]- 3146 Jun, [facility] [place] [facility] [address] [id number] [place] [address] 2546 Jun, 2013 [facility] [place] [facility] [address] [id number] [place] [address] 2546 Jun, 2013 [facility] [place] [facility] [address] [id number] [place] [address]- 0168 Jun, 2013 [facility] [place] [facility] [address] [id number] [place] [address]- 3664 Jun, [facility] [place] [facility] [address] [id number] [place] [address]- 3740 Jun, [facility] [place] [facility] [address] [id number] [place] [address]- 2465 May, [facility] [place] [facility] [address] [id number] [place] [address]- 0613 May, [facility] [place] [facility] [address] [id number] [place] [address]- 2802 May, [facility] [place] [facility] [address] [id number] [place] [address]- 1709 May, [facility] [place] [facility] [address] [id number] [place] [address]- 8935 May, [facility] [place] [facility] [address] [id number] [place] [address]- 3650 May, [facility] [place] [facility] [address] [id number] [place] [address]- 6060 May, [facility] [place] [facility] [address] [id number] [place] [address]- 3822 May, [facility] [place] [facility] [address] [id number] [place] [address]- 9823 May, [facility] [place] [facility] [address] [id number] [place] [address]- 7761 May, [facility] [place] [facility] [address] [id number] [place] [address]- 5391 Apr, [facility] [place] [facility] [address] [id number] [place] [address]- 2027 Apr, [facility] [place] [facility] [address] [id number] [place] [address]- 8235 Apr, [facility] [place] [facility] [address] [id number] [place] [address]- 4429 Apr, [facility] [place] [facility] [address] [id number] [place] [address]- 7957 Apr, [facility] [place] [facility] [address] [id number] [place] [address]- 8773 Apr, [facility] [place] [facility] [address] [id number] [place] [address]- 2316 Apr, [facility] [place] [facility] [address] [id number] [place] [address]- 6898 Apr, [facility] [place] [facility] [address] [id number] [place] [address]- 2945 Apr, [facility] [place] [facility] [address] [id number] [place] [address]- 1781 Apr, [facility] [place] [facility] [address] [id number] [place] [address]- 2714 Mar, [facility] [place] [facility] [address] [id number] [place] [address]- 3982 Mar, [facility] [place] [facility] [address] [id number] [place] [address]- 5329 Mar, [facility] [place] [facility] [address] [id number] [place] [address]- 1593 Mar, [facility] [place] [facility] [address] [id number] [place] [address]- 9219 Mar, [facility] [place] [facility] [address] [id number] [place] [address]- 8501 Mar, [facility] [place] [facility] [address] [id number] [place] [address]- 1673 18 Mar, 2014 [facility] [place] [facility] [address] [id number] [place] [address]- 0354 Mar, [facility] [place] [facility] [address] [id number] [place] [address]- 6416 16 Mar, 2014 [facility] [place] [facility] [address] [id number] [place] [address]- 7309 Mar, [facility] [place] [facility] [address] [id number] [place] [address]- 2594 Mar, [facility] [place] [facility] [address] [id number] [place] [address]- 7826 Mar, [facility] [place] [facility] [address] [id number] [place] [address]- 2829 Mar, [facility] [place] [facility] [address] [id number] [place] [address]- 9486 Mar, [facility] [place] [facility] [address] [id number] [place] [address]- 9468 Mar, [facility] [place] [facility] [address] [id number], [place] [address]- 7504 Mar, [facility] [place] [facility] [address] [id number] [place] [address]- 3321 Mar, [facility] [place] [facility] [address] [id number] [place] [address]- 6437 Mar, [facility] [place] [facility] [address] [id number] [place] [address]- 4097 04 Mar, 2014 [facility] [place] [facility] [address] [id number] [place] [address]- 1737 Mar, [facility] [address] [id number] [place] [address]- 6722 February, [facility] [address] [id number] [place] [address]- 2012 February, [facility] [address] [id number] [place] [address]- 3987 February, [facility] [place] [facility] [address] [id number] [place] [address]- 1551 February, [facility] [address] [id number] [place] [address]- 5190 February, [facility] [address] [id number] [place] [address]- 4784 February, [facility] [address] [id number] [place] [address]- 0801 February, [facility] [address] [id number] [place] [address]- 0026 February, [facility] [address] [id number] [place] [address]- 5194 February, [facility] [address] [id number] [place] [address]- 0137 February, [facility] [address] [id number] [place] [address]- 2511 February, [facility] [place] [facility] [address] [id number] [place] [address]- 7453 February, [facility] [place] [facility] [address] [id number] [place] [address]- 4360 February, [facility] [place] [facility] [address] [id number] [place] [address]- 8293 February, [facility] [place] [facility] [address] [id number] [place] [address]- 1370 February, [facility] [place] [facility] [address] [id number] [place] [address]- 4562 February, [facility] [place] [facility] [address] [id number] [place] [address]- 3703 February, [facility] [place] [facility] [address] [id number] [place] [address]- 8106 February, [facility] [place] [facility] [address] [id number] [place] [address]- 8299 February, [facility] [place] [facility] [address] [id number] [place] [address]- 9500 February, [facility] [place] [facility] [address] [id number] [place] [address]- 4813 February, [facility] [place] [facility] [address] [id number] [place] [address]- 4627 Jan, [facility] [place] [facility] [address] [id number] [place] [address]- 5197 Jan, [facility] [place] [facility] [address] [id number] [place] [address]- 0384 Jan, [facility] [place] [facility] [address] [id number] [place] [address]- 8283 Jan, [facility] [place] [facility] [address] [id number] [place] [address]- 8869 Jan, [facility] [place] [facility] [address] [id number] [place] [address]- 0391 Jan, [facility] [place] [facility] [address] [id number] [place] [address]- 3103 Jan, [facility] [place] [facility] [address] [id number] [place] [address]- 4359 Jan, [facility] [place] [facility] [address] [id number] [place] [address]- 0752 Dec, [facility] [place] [facility] [address] [id number] [place] [address]- 1383 20 Dec, 2013 [facility] [place] [facility] [address] [id number] [place] [address]- 3705 20 Dec, 2013 [facility] [place] [facility] [address] [id number] [place] [address]- 1108 19 Dec, 2013 [facility] [place] [facility] [address] [id number] [place] [address]- 8937 19 Dec, 2013 [facility] [place] [facility] [address] [id number] [place] [address]- 2373 15 Dec, 2013 [facility] [place] [facility] [address] [id number] [place] [address]- 7132 15 Dec, 2013 [facility] [place] [facility] [address] [id number] [place] [address]- 0843 11 Dec, 2013 [facility] [place] [facility] [address] [id number] [place] [address]- 0529 10 Dec, 2013 [facility] [place] [facility] [address] [id number] [place] [address]- 3585 10 Dec, 2013 [facility] [place] [facility] [address] [id number] [place] [address]- 9602 18 Nov, 2013 [facility] [place] [facility] [address] [id number] [place] [address]- 5461 Nov, [facility] [place] [facility] [address] [id number] [place] [address]- 8338 Nov, [facility] [place] [facility] [address] [id number] [place] [address]- 9996 Nov, [facility] [place] [facility] [address] [id number] [place] [address]- 4283 Nov, [facility] [place] [facility] [address] [id number] [place] [address]- 6714 Oct, [facility] [place] [facility] [address] [id number] [place] [address]- 8369 Oct, [facility] [place] [facility] [address] [id number] [place] [address]- 4609 Oct, [facility] [address] [id number] [place] [address]- 4340 Sep, [facility] [place] [facility] [address] [id number] [place] [address]- 7711 Sep, [facility] [place] [facility] [address] [id number] [place] [address]- 3137 Sep, [facility] [place] [facility] [address] [id number] [place] [address]- 3868 Sep, [facility] [place] [facility] [address] [id number] [place] [address]- 4311 Aug, [facility] [place] [facility] [address] [id number] [place] [address]- 8921 Aug, [facility] [place] [facility] [address] [id number] [place] [address]- 6376 Jul, [facility] [address] [id number] [place] [address]- 2256 Jul, [facility] [place] [facility] [address] [id number] [place] [address]- 3543 Jul, [facility] [place] [facility] [address] [id number] [place] [address]- 1169 Jul, [facility] [place] [facility] [address] [id number] [place] [address]- 1119 Jul, [facility] [place] [facility] [address] [id number] [place] [address]- 8863 Jun, [facility] [place] [facility] [address] [id number] [place] [address]- 5552 Jun, [facility] [place] [facility] [address] [id number] [place] [address]- 1291 19 Jun, 2013 [facility] [place] [facility] [address] [id number] [place] [address]- 7923 18 Jun, 2013 [facility] [address] [id number] [place] [address]- 6622 16 Jun, 2013 [facility] [place] [facility] [address] [id number] [place] [address]- 4246 12 Jun, 2013 [facility] [place] [facility] [address] [id number] [place] [address]- 7636 11 Jun, 2013 [facility] [place] [facility] [address] [id number] [place] [address]- 8371 30 May, 2013 [facility] [place] [facility] [address] [id number] [place] [address]- 1431 May, [facility] [place] [facility] [address] [id number] [place] [address]- 6506 Apr, [facility] [place] [facility] [address] [id number] [place] [address]- 3487 Apr, [facility] [place] [facility] [address] [id number] [place] [address]- 6063 Apr, [facility] [place] [facility] [address] [id number] [place] [address]- 9495 Mar, [facility] [place] [facility] [address] [id number] [place] [address]- 5765 Mar, [facility] [place] [facility] [address] [id number] [place] [address]- 5750 February, [facility] [place] [facility] [address] [id number] [place] [address]- 9985 February, [facility] [place] [facility] [address] [id number] [place] [address]- 0733 February, [facility] [place] [facility] [address] [id number] [place] [address]- 4123 February, [facility] [place] [facility] [address] [id number] [place] [address]- 6387 Jan, [facility] [place] [facility] [address] [id number] [place] [address]- 3061 17 Jan, 2013 [facility] [address] [id number] [place] [address]- 6116 16 Jan, 2013 [facility] [place] [facility] [address] [id number] [place] [address]- 6009 29 Dec, 2012 [facility] [address] [id number] [place] [address]- 7155 Dec, [facility] [place] [facility] [address] [id number] [place] [address]- 8053 Dec, [facility] [place] [facility] [address] [id number] [place] [address]- 8869 08 Dec, 2012 [facility] [place] [facility] [address] [id number] [place] [address]- 7202 20 Nov, 2012 [facility] [address] [id number] [place] [address]- 6321 Nov, [facility] [place] [facility] [address] [id number] [place] [address]- 7105 Oct, [facility] [place] [facility] [address] [id number] [place] [address]- 0122 Oct, [facility] [address] [id number] [place] [address]- 1508 Oct, [facility] [place] [facility] [address] [id number] [place] [address]- 7143 Oct, [facility] [place] [facility] [address] [id number] [place] [address]- 3949 Aug, [facility] [place] [facility] [address] [id number] [place] [address]- 5744 Aug, [facility] [place] [facility] [address] [id number] [place] [address]- 3457 Jun, [facility] [place] [facility] [address] [id number] [place] [address]- 3882 May, [facility] [place] [facility] [address] [id number] [place] [address]- 3480 May, [facility] [place] [facility] [address] [id number] [place] [address]- 0930 Apr, [facility] [place] [facility] [address] [id number] [place] [address] 2546 Apr, [facility] [place] [facility] [address] [id number] [place] [address]- 4788 Apr, [facility] [address] [id number] [place] [address]- 7302 Mar, [facility] [place] [facility] [address] [id number] [place] [address]- 7883 Mar, [facility] [address] [id number] [place] [address]- 1065 Mar, [facility] [address] [id number] [place] [address]- 1271 Mar, [facility] [place] [facility] [address] [id number] [place] [address]- 9982 Mar, [facility] [place] [facility] [address] [id number] [place] [address]- 4803 February, [facility] [place] [facility] [address] [id number] [place] [address] February, [facility] [place] [facility] [address] [id number] [place] [address] February, [facility] [place] [facility] [address] [id number] [place] [address] February, [facility] [place] [facility] [address] [id number] [place] [address] February, [facility] [place] [facility] [address] [id number] [place] [address] February, [facility] [place] [facility] [address] [id number] [place] [address] February, [facility] [place] [facility] [address] [id number] [place] [address] 25 Jan, 2012 [facility] [place] [facility] [address] [id number] [place] [address] 18 Jan, 2012 [facility] [place] [facility] [address] [id number] [place] [address]16 17 Jan, 2012 [facility] [place] [facility] [address] [id number] [place] [address] 8085 13 Jan, 2012 [facility] [place] [facility] [address] [id number] [place] [address] 8477 10 Jan, 2012 [facility] [place] [facility] [address] [id number] [place] [address]27 04 Jan, 2012 [facility] [place] [facility] [address] [id number] [place] [address] 30 Dec, 2011 [facility] [place] [facility] [address] [id number] [place] [address] 9986 24 Dec, 2011 [facility] [place] [facility] [address] [id number] [place] [address] Dec, [facility] [place] [facility] [address] [id number] [place] [address] Dec, [facility] [place] [facility] [address] [id number] [place] [address] Dec, [facility] [place] [facility] [address] [id number] [place] [address] 9712 28 Nov, 2011 [facility] [place] [facility] [address] [id number] [place] [address] Nov, [facility] [place] [facility] [address] [id number] [place] [address] 25 Nov, 2011 [facility] [place] [facility] [address] [facility] [id number] [place] [address] 14 Nov, 2011 [facility] [place] [facility] [address] [id number] [place] [address] 10 Nov, 2011 [facility] [address] [id number] [place] [address]71 Nov, [facility] [place] [facility] [address] [id number] [place] [address] Oct, [facility] [address] [id number] [place] [address] Oct, [facility] [address] [id number] [place] [address] Oct, [facility] [place] [facility] [address] [id number] [place] [address] 8562 Oct, [facility] [address] [id number] [place] [address] Oct, [facility] [address] [id number] [place] [address] Sep, [facility] [address] [id number] [place] [address] Sep, [facility] [address] [id number] [place] [address] 8324 Sep, [facility] [address] [id number] [place] [address] 7820 14 Sep, 2011 [facility] [place] [facility] [address] [id number] [place] [address] 7962 14 Sep, 2011 [facility] [place] [facility] [address] [id number] [place] [address] 13 Sep, 2011 [facility] [place] [facility] [address] [id number] [place] [address] 5135 12 Sep, 2011 [facility] [place] [facility] [address] [id number] [place] [address] 9078 09 Sep, 2011 [facility] [place] [facility] [address] [id number] [place] [address] Sep, [facility] [place] [facility] [address] [id number] [place] [address] Aug, [facility] [place] [facility] [address] [id number] [place] [address] Aug, [facility] [place] [facility] [address] [facility] [id number] [place] [address] Aug, [facility] [place] [facility] [address] [id number], [place] [address] Aug, [facility] [place] [facility] [address] [id number] [place] [address] 295[address] Aug, [facility] [place] [facility] [address] [id number], [place] [address] Aug, [facility] [place] [facility] [address] [id number], [place] [address] Aug, [facility] [place] [facility] [address] [id number], [place] [address] Aug, [facility] [place] [facility] [address] [id number], [place] [address] Aug, [facility] [place] [facility] [address] [id number], [place] [address] Aug, [facility] [place] [facility] [address] [id number], [place] [address] Aug, [facility] [place] [facility] [address] [id number], [place] [address] Aug, [facility] [place] [facility] [address] [id number], [place] [address] Jul, [facility] [place] [facility] [address] [id number], [place] [address] Jul, [facility] [place] [facility] [address] [id number], [place] [address] Jul, [facility] [place] [facility] [id number], [place] [address] Jul, [facility] [id number], [place] [address] Jul, [facility] [id number], [place] [address]35 Jul, [facility] [id number], [place] [address] Jul, [facility] [id number], [place] [address] 1609 Jul, [facility] [id number] [place] [address]- 1402 Jul, [facility] [id number], [place] [address] 2611 Jul, [facility] [id number] [place] [address]- [address]37 Nov, [facility] [id number], [place] [address] Aug, [facility] [id number], [place] [address] 9[address] Aug, [facility] [id number], [place] [address] 9835 Aug, [facility] [id number], [place] [address] Aug, [facility] [id number], [place] [address] Jul, IMMUNIZATIONS No Known Immunizations SOCIAL HISTORY Never Assessed REASON FOR VISIT SI/OD PLAN OF CARE VITAL SIGNS MEDICATIONS Unknown [...] Suicide attempt by hanging 06/14/2016 Hospitalization History [facility] 01/30/2018-02/10/2008 Hospitalization History [facility] 05/04/18-05/09/18
--- OUTSIDE RECORDS SUMMARY | 2018-08-15 20:13 | XMS REPORT ---
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 59065097 Problem Schizoaffective disorder, depressive type F25.1 Active 27555122 Problem Borderline personality disorder F60.3 Active 31855246 Problem Attention deficit hyperactivity disorder (ADHD), inattentive type, 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 55614543 Problem Schizoaffective disorder, unspecified F25.9 Active 42607012 Problem High risk medication use Z79.899 Active 051687684 Problem Posttraumatic stress disorder F43.10 Active 22136811 Problem Obsessive-compulsive disorders 300.3 Active 698014070 Problem Generalized anxiety disorder 300.02 Active 70829847 Problem Attention deficit disorder 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 314.00 Active 52466472 Problem Bipolar disorder, unspecified 296.80 Active 73880632 Problem Posttraumatic stress disorder 309.81 Active 72078264 Problem Paranoid schizophrenia, unspecified condition 295.30 Active 15637086 ALLERGIES Substance Reaction Event Type Date Status Latuda agitation Drug Allergy Apr, Active Penicillamine bronchospasm and rash Drug Allergy Apr, Active Cephalexin visual disturbances Drug Allergy Apr, Active Ceftin visual disturbance Drug Allergy Apr, Active Biaxin bronchospasm Drug Allergy Apr, Active Cymbalta 30 Mg Capsule, Delayed Release(e.c.) nausea Non Drug Allergy Apr Active Brintellix 10 Mg Tablet nausea and vomiting Non Drug Allergy Apr, Active ENCOUNTERS Encounter Location Date Diagnosis [facility] [address] [facility] [id number] [address] Jul, [facility] [address] [address] May, Paranoid schizophrenia F20.0 ; Posttraumatic stress disorder F43.10 ; Attention deficit hyperactivity disorder (ADHD), inattentive type, 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 and Borderline personality disorder F60.3 [facility] [address] [address] May, [facility] [address] [address] May, Paranoid schizophrenia F20.0 [facility] [address] [address] May, Paranoid schizophrenia F20.0 ; Posttraumatic stress disorder F43.10 ; Attention deficit hyperactivity disorder (ADHD), inattentive type, 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 and Borderline personality disorder F60.3 [facility] [address] [address] Apr, [facility] [address] [address] Apr, Paranoid schizophrenia F20.0 ; Posttraumatic stress disorder F43.10 ; Attention deficit hyperactivity disorder (ADHD), inattentive type, 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 and Borderline personality disorder F60.3 [facility] [address] [address] Apr, [facility] [address] [address] Apr, Schizoaffective disorder, depressive type F25.1 and Borderline personality disorder F60.3 [facility] [address] [address] Apr, Paranoid schizophrenia F20.0 ; Posttraumatic stress disorder F43.10 ; Attention deficit hyperactivity disorder (ADHD), inattentive type, 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 and Borderline personality disorder F60.3 [facility] [id number] [address] Apr, [facility] [address] [address] Apr, Paranoid schizophrenia F20.0 ; Posttraumatic stress disorder F43.10 ; Attention deficit hyperactivity disorder (ADHD), inattentive type, 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 and Borderline personality disorder F60.3 [facility] [address] [address] Apr, [facility] [id number] [address] Mar, Paranoid schizophrenia F20.0 [facility] [address] [address] Mar, [facility] [address] [address] Mar, Paranoid schizophrenia F20.0 ; Posttraumatic stress disorder F43.10 ; Attention deficit hyperactivity disorder (ADHD), inattentive type, 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 and Borderline personality disorder F60.3 [facility] [address] [address] February, Paranoid schizophrenia F20.0 [facility] [id number] [address] February, Paranoid schizophrenia F20.0 ; Posttraumatic stress disorder F43.10 ; Attention deficit hyperactivity disorder (ADHD), inattentive type, 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 and Borderline personality disorder F60.3 [facility] [id number] [address] February, Paranoid schizophrenia F20.0 ; Posttraumatic stress disorder F43.10 ; Attention deficit hyperactivity disorder (ADHD), inattentive type, 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 and Borderline personality disorder F60.3 [facility] [id number] [address] February, [facility] [address] [address] February, Paranoid schizophrenia F20.0 [facility] [address] [address] [address] February, Paranoid schizophrenia F20.0 [facility] [address] [address] February, Paranoid schizophrenia F20.0 ; Posttraumatic stress disorder F43.10 ; Attention deficit hyperactivity disorder (ADHD), inattentive type, 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 and Borderline personality disorder F60.3 [facility] [address] [address] Jan, Paranoid schizophrenia F20.0 ; Posttraumatic stress disorder F43.10 ; Attention deficit hyperactivity disorder (ADHD), inattentive type, 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 and Borderline personality disorder F60.3 [facility] [address] [address] Jan, Paranoid schizophrenia F20.0 [facility] [address] [address] Jan, Paranoid schizophrenia F20.0 [facility] [address] [address] Jan, Paranoid schizophrenia F20.0 ; Posttraumatic stress disorder F43.10 ; Attention deficit hyperactivity disorder (ADHD), inattentive type, 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 and Borderline personality disorder F60.3 [facility] [id number] [address] Dec, [facility] [address] [address] Nov, Paranoid schizophrenia F20.0 ; Posttraumatic stress disorder F43.10 ; Attention deficit hyperactivity disorder (ADHD), inattentive type, 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 and Borderline personality disorder F60.3 [facility] [address] [address] Nov, [facility] [address] [address] 30[address] Oct, Paranoid schizophrenia F20.0 [facility] [address] [address] 9[address] Oct, Paranoid schizophrenia F20.0 ; Posttraumatic stress disorder F43.10 ; Attention deficit hyperactivity disorder (ADHD), inattentive type, 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 ; Borderline personality disorder F60.3 and Other ocean transportation intermediary ( 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 Z79.899 [facility] [address] [address] Oct, [facility] [address] [address]- [address] Oct, [facility] [address] [address] Sep, [facility] [address] [address] Sep, Paranoid schizophrenia F20.0 ; Posttraumatic stress disorder F43.10 ; Attention deficit hyperactivity disorder (ADHD), inattentive type, 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 and Borderline personality disorder F60.3 [facility] [address] [address] Sep, Paranoid schizophrenia F20.0 [facility] [id number] [address] Aug, Paranoid schizophrenia F20.0 ; Posttraumatic stress disorder F43.10 ; Attention deficit hyperactivity disorder (ADHD), inattentive type, 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 and Borderline personality disorder F60.3 [facility] [address] [address] Aug, Paranoid schizophrenia F20.0 ; Posttraumatic stress disorder F43.10 ; Attention deficit hyperactivity disorder (ADHD), inattentive type, 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 and Borderline personality disorder F60.3 [facility] [address] [address]- [address] Aug, [facility] [address] [address]- [address] Jul, Paranoid schizophrenia F20.0 ; Posttraumatic stress disorder F43.10 ; Attention deficit hyperactivity disorder (ADHD), inattentive type, 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 and Borderline personality disorder F60.3 [facility] [address] [address] 9[address] Jul, Paranoid schizophrenia F20.0 [facility] [address] [address] Jul, Paranoid schizophrenia F20.0 ; Posttraumatic stress disorder F43.10 ; Attention deficit hyperactivity disorder (ADHD), inattentive type, 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 and Borderline personality disorder F60.3 [facility] [address] [address] Jun, Paranoid schizophrenia F20.0 ; Posttraumatic stress disorder F43.10 ; Attention deficit hyperactivity disorder (ADHD), inattentive type, 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 and Borderline personality disorder F60.3 [facility] [address] [address]- [address] May, Other halfway (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 Z79.899 [facility] [address] [address]- [address] May, [facility] [address] [address]- 8030 May, [facility] [address] [address]- 7[address] May, Attention deficit hyperactivity disorder (ADHD), inattentive type, 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 [facility] [address] [address]- 67[address] May, [facility] [address] [address]- 6[address] May, Attention deficit hyperactivity disorder (ADHD), inattentive type, 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 [facility] [address] [address]- 89[address] May, Paranoid schizophrenia F20.0 ; Posttraumatic stress disorder F43.10 ; Attention deficit hyperactivity disorder (ADHD), inattentive type, 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 and Other ocean transportation intermediary (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 Z79.899 [facility] [id number] [place] [address] Apr, Paranoid schizophrenia F20.0 [facility] [address] [address]- 35[address] Apr, Paranoid schizophrenia F20.0 ; Posttraumatic stress disorder F43.10 and Attention deficit hyperactivity disorder (ADHD), inattentive type, 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 [facility] [address] [address]- 118[address] February, [facility] [address] [id number] [address]- [address] February, Paranoid schizophrenia F20.0 ; Posttraumatic stress disorder F43.10 and Attention deficit hyperactivity disorder (ADHD), inattentive type, 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 [facility] [address] [address]- [address] February, Paranoid schizophrenia F20.0 ; Posttraumatic stress disorder F43.10 and Attention deficit hyperactivity disorder (ADHD), inattentive type, 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 [facility] [address] [address]- [address] Jan, Paranoid schizophrenia F20.0 ; Posttraumatic stress disorder F43.10 and Attention deficit hyperactivity disorder (ADHD), inattentive type, 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 [facility] [address] [id number] [id number] Dec, Dental examination Z01.20 [facility] [address] [id number] [address] Nov, Dental examination Z01.20 [facility] [address] [address] 23 Nov, 2016 Dental examination Z01.20 [facility] [id number] [place] [id number] Nov, 2016 Dental caries K02.9 [facility] [address] [place] [address]- 9246 13 Nov, 2016 High risk medication use Z79.899 [facility] [id number] [place] [address]- 9968 Nov, Paranoid schizophrenia F20.0 ; Posttraumatic stress disorder F43.10 ; Attention deficit hyperactivity disorder (ADHD), inattentive type, 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 and Borderline personality disorder in adult F60.3 [facility] [address] [place] [phone] Oct, Dental caries K02.9 [facility] [address] [place] [address]- 2694 Sep, Paranoid schizophrenia F20.0 ; Posttraumatic stress disorder F43.10 and Attention deficit hyperactivity disorder (ADHD), inattentive type, 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 [facility] [address] [place] [address]59[address]- 9607 Aug, Paranoid schizophrenia F20.0 ; Posttraumatic stress disorder F43.10 and Attention deficit hyperactivity disorder (ADHD), inattentive type, 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 [facility] [address] [address] Aug, Strep throat J02.0 and Cough R05 [facility] [address] [place] [address]- 6011 Aug, [facility] [id number] [place] [address] 11165- 3730 24 Jul, 2016 Paranoid schizophrenia F20.0 ; Posttraumatic stress disorder F43.10 and Attention deficit hyperactivity disorder (ADHD), inattentive type, 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 [facility] [id number] [address]- 2595 Jul, [facility] [id number] [place] [address] 8[address]- 2580 Jun, Paranoid schizophrenia F20.0 ; Posttraumatic stress disorder F43.10 and Attention deficit hyperactivity disorder (ADHD), inattentive type, 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 [facility] [address] [address] Jun, Dental examination Z01.20 [facility] [address] [place] [address]- 2083 Jun, [facility] [id number] [place] [address] 99352- 2140 May, Paranoid schizophrenia F20.0 [facility] [address] [address]- 9307 May, Paranoid schizophrenia F20.0 ; Posttraumatic stress disorder F43.10 and Attention deficit hyperactivity disorder (ADHD), inattentive type, 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 [facility] [address] [address]- [address] May, [facility] [id number] [address]- 2110 May, Paranoid schizophrenia F20.0 [facility] [address] [address]- 5610 May, [facility] [id number] [address]- 1576 May, Paranoid schizophrenia F20.0 [facility] [id number] [place] [address]68- 6624 May, Schizoaffective disorder, unspecified F25.9 [facility] [id number] [address]- 9198 May, Schizoaffective disorder, unspecified F25.9 [facility] [address] [facility] [id number] [address]- [address] May, [facility] [address] [facility] [id number] [place] [address]- 4544 May, Paranoid schizophrenia F20.0 [facility] [id number] [address]- [address] May, Paranoid schizophrenia F20.0 ; Posttraumatic stress disorder F43.10 and Attention deficit hyperactivity disorder (ADHD), inattentive type, 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 [facility] [address] [facility] [id number] [address]- 7[address] Mar, [facility] [id number] [address]- 5475 Mar, Paranoid schizophrenia F20.0 ; Posttraumatic stress disorder F43.10 and Attention deficit hyperactivity disorder (ADHD), inattentive type, 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 [facility] [id number] [address]- 1040 Mar, Paranoid schizophrenia F20.0 [facility] [id number] [address]- 5557 Mar, Paranoid schizophrenia F20.0 ; Attention deficit hyperactivity disorder (ADHD), inattentive type, 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 and Posttraumatic stress disorder F43.10 [facility] [id number] [address]- 9448 Mar, [facility] [id number] [address]- 3652 Mar, Paranoid schizophrenia F20.0 ; Posttraumatic stress disorder F43.10 and Attention deficit hyperactivity disorder (ADHD), inattentive type, 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 [facility] [address] [facility] [id number] [address]- 3944 February, [facility] [id number] [address]- 8968 February, [facility] [address] [address] February, [facility] [id number] [place] [address] 94241- 2818 February, [facility] [id number] [place] [address] 71632- 1451 Jan, Paranoid schizophrenia F20.0 [facility] [id number] [place] [address] [phone] Jan, Dental examination Z01.20 [facility] [id number] [place] [address] [phone] Jan, Dental caries K02.9 [facility] [id number] [place] [address] [id number] Jan, Dental examination Z01.20 [facility] [id number] [place] [address] [phone] Dec, Encounter for dental examination Z01.20 [facility] [id number] [place] [address] 33682- 6790 Dec, Paranoid schizophrenia F20.0 [facility] [id number] [place] [address] [phone] Dec, Dental examination Z01.20 [facility] [id number] [place] [address] 81576- 7037 Dec, [facility] [id number] [place] [address] 99826- 0820 Dec, Paranoid schizophrenia F20.0 ; Posttraumatic stress disorder F43.10 and Attention deficit hyperactivity disorder (ADHD), inattentive type, 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 [facility] [address] [place] [address] 23471- 0882 Nov, Schizoaffective disorder, unspecified F25.9 [facility] [address] [address]- 0677 Oct, Paranoid schizophrenia F20.0 [place] [address] [address]- 5706 Oct, [facility] [id number] [place] [address] 51662- 6307 Sep, Paranoid schizophrenia F20.0 ; Posttraumatic stress disorder F43.10 and Attention deficit hyperactivity disorder (ADHD), inattentive type, 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 [facility] [address] [place] [address] 19483- 2629 Sep, [facility] [address] [place] [address] 33091- 1842 Sep, Paranoid schizophrenia F20.0 ; Posttraumatic stress disorder F43.10 and Attention deficit hyperactivity disorder (ADHD), inattentive type, 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 [facility] [address] [address]- 5178 Aug, Paranoid schizophrenia F20.0 [facility] [address] [address]- 8880 Aug, [facility] [address] [place] [address] 75067- 4568 Aug, Posttraumatic stress disorder F43.10 ; Paranoid schizophrenia F20.0 and Attention deficit hyperactivity disorder (ADHD), inattentive type, 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 [facility] [address] [address]- 5048 Jul, Bipolar disorder, unspecified F31.9 [facility] [address] [address]- 2968 Jul, [facility] [id number] [place] [address] 14091- 5506 Jun, [facility] [address] [place] [address] 71807- 6935 Jun, Schizoaffective disorder, chronic 295.72 ; Posttraumatic stress disorder 309.81 and Attention deficit disorder 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 314.00 [facility] [address] [address]- 6004 May, [facility] [address] [address]- 9800 May, [facility] [address] [address]- 7917 May, Schizoaffective disorder, chronic 295.72 ; Posttraumatic stress disorder 309.81 ; Attention deficit disorder 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 314.00 and Bipolar disorder, unspecified 296.80 [facility] [address] [address]- 4575 Apr, Schizoaffective disorder, chronic 295.72 [facility] [address] [place] [address] 13907- 6250 Apr, [facility] [address] [place] [address] 39607- 3082 Apr, Schizoaffective disorder, chronic 295.72 ; Posttraumatic stress disorder 309.81 and Attention deficit disorder 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 314.00 [facility] [address] [address] Mar, Disorganized schizophrenia, 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 [facility] [address] [address]- 2331 Mar, [facility] [address] [address]- 3789 Mar, [facility] [address] [address]- 3001 Mar, [facility] [address] [address]- 8431 Mar, [facility] [address] [place] [address] February, Schizoaffective disorder, chronic 295.72 [facility] [id number] [place] [address] February, [facility] [id number] [address] February, Attention deficit disorder 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 314.00 ; Posttraumatic stress disorder 309.81 and Schizoaffective disorder, chronic 295.72 [facility] [id number] [address] 268[address] Jan, [facility] [id number] [place] [address] 348228- 2958 Jan, [facility] [id number] [address] 9959 Jan, [facility] [id number] [place] [address] 388620- 3486 Dec, [facility] [address] [id number] [address] Dec, [facility] [address] [id number] [address] 6432 Dec, [facility] [id number] [address] 7977 Dec, [facility] [id number] [address] 9972 Dec, [facility] [id number] [address] 7[address] Dec, [facility] [place] [facility] [id number] [address] 3[address] Dec, [facility] [id number] [place] 46[address] Dec, [facility] [id number] [address] 0795 Nov, [facility] [place] [facility] [id number] [address] 7320 Nov, [facility] [address] [id number] [place] [address] Nov, 2014 [facility] [place] [facility] [address] [id number] [place] [address]- 8756 Nov, 2014 [facility] [place] [facility] [address] [id number] [place] [address] 2546 Nov, 2014 [facility] [place] [facility] [address] [id number] [place] [address]- 2106 Nov, 2014 [facility] [place] [facility] [address] [id number] [place] [address]- 2547 Nov, 2014 [facility] [place] [facility] [address] [id number] [place] [address]- 7096 Nov, 2014 [facility] [place] [facility] [address] [facility] [id number] [place] [address]- 1724 Nov, [facility] [place] [facility] [address] [id number] [place] [address]- 1220 Nov, [facility] [place] [facility] [address] [id number] [place] [address]- 7354 Oct, [facility] [place] [facility] [address] [facility] [id number] [place] [address]- 0258 Oct, [facility] [place] [facility] [address] [facility] [id number] [place] [address]- 6442 Oct, [facility] [place] [facility] [address] [id number] [place] [address]- 2542 Oct, [facility] [place] [facility] [address] [id number] [place] [address]- 2542 Oct, [facility] [place] [facility] [address] [id number] [place] [address]- 2546 Oct, [facility] [place] [facility] [address] [facility] [id number] [place] [address]- 2546 Oct, [facility] [place] [facility] [address] [id number] [place] [address]- 3614 17 Sep, 2014 [facility] [place] [facility] [address] [id number] [place] [address]- 4196 17 Sep, 2014 [facility] [place] [facility] [address] [id number] [place] [address]- 8151 15 Sep, 2014 [facility] [place] [facility] [address] [id number] [place] [address]- 6955 15 Sep, 2014 [facility] [place] [facility] [address] [id number] [place] [address]- 2136 Aug, [facility] [place] [facility] [address] [id number] [place] [address]- 9623 Aug, [facility] [place] [facility] [address] [id number] [place] [address]- 2509 Aug, [facility] [place] [facility] [address] [id number] [place] [address]- 4624 Aug, [facility] [place] [facility] [address] [id number] [place] [address]- 3285 Aug, [facility] [place] [facility] [address] [id number] [place] [address]- 4135 Aug, [facility] [place] [facility] [address] [id number] [place] [address]- 6026 29 Jul, 2014 [facility] [place] [facility] [address] [id number] [place] [address]- 7198 29 Jul, 2014 [facility] [place] [facility] [address] [id number] [place] [address]- 4215 24 Jul, 2014 [facility] [place] [facility] [address] [id number] [place] [address]- 9016 24 Jul, 2014 [facility] [place] [facility] [address] [id number] [place] [address]- 1018 15 Jul, 2014 [facility] [place] [facility] [address] [id number] [place] [address]- 1740 15 Jul, 2014 [facility] [place] [facility] [address] [id number] [place] [address]- 6692 27 Sep, 2013 [facility] [place] [facility] [address] [id number] [place] [address] 2546 27 Sep, 2013 [facility] [place] [facility] [address] [id number] [place] [address] 2546 26 Jun, 2013 [facility] [place] [facility] [address] [id number] [place] [address] 2546 26 Jun, 2013 [facility] [place] [facility] [address] [id number] [place] [address] 2546 26 Jun, 2013 [facility] [place] [facility] [address] [id number] [place] [address]- 0642 26 Jun, 2013 [facility] [place] [facility] [address] [id number] [place] [address] 2546 16 Jun, 2013 [facility] [place] [facility] [address] [id number] [place] [address]- 6426 16 Jun, 2013 [facility] [place] [facility] [address] [id number] [place] [address] 2540 16 Jun, 2013 [facility] [place] [facility] [address] [id number] [place] [address] 2540 16 Jun, 2013 [facility] [place] [facility] [address] [id number] [place] [address] 2548 04 Jun, 2013 [facility] [place] [facility] [address] [id number] [place] [address] 2548 May, [facility] [place] [facility] [address] [id number] [place] [address] 2549 May, [facility] [place] [facility] [address] [id number] [place] [address]- 6798 May, [facility] [place] [facility] [address] [id number] [place] [address]- 254 May, [facility] [place] [facility] [address] [id number] [place] [address]- 8759 May, [facility] [place] [facility] [address] [id number] [place] [address]- 8717 May, [facility] [place] [facility] [address] [id number] [place] [address]- 7889 May, [facility] [place] [facility] [address] [id number] [place] [address]- 5287 May, [facility] [place] [facility] [address] [id number] [place] [address]- 3395 May, [facility] [place] [facility] [address] [id number] [place] [address]- 2642 May, [facility] [place] [facility] [address] [id number] [place] [address]- 5456 Apr, [facility] [place] [facility] [address] [id number] [place] [address]- 7908 Apr, [facility] [place] [facility] [address] [id number] [place] [address]- 3577 Apr, [facility] [place] [facility] [address] [id number] [place] [address]- 3611 Apr, [facility] [place] [facility] [address] [id number] [place] [address]- 0293 Apr, [facility] [place] [facility] [address] [id number] [place] [address]- 1263 Apr, [facility] [place] [facility] [address] [id number] [place] [address]- 0089 Apr, [facility] [place] [facility] [address] [id number] [place] [address]- 5866 Apr, [facility] [place] [facility] [address] [id number] [place] [address]- 4584 Apr, [facility] [place] [facility] [address] [id number] [place] [address]- 0300 Apr, [facility] [place] [facility] [address] [id number] [place] [address]- 6086 Mar, [facility] [place] [facility] [address] [id number] [place] [address]- 0548 Mar, [facility] [place] [facility] [address] [id number] [place] [address]- 2634 Mar, [facility] [place] [facility] [address] [id number] [place] [address]- 4337 24 Mar, 2014 [facility] [place] [facility] [address] [id number] [place] [address]- 2319 20 Mar, 2014 [facility] [place] [facility] [address] [id number] [place] [address]- 0924 18 Mar, 2014 [facility] [place] [facility] [address] [id number] [place] [address]- 5054 18 Mar, 2014 [facility] [place] [facility] [address] [id number] [place] [address]- 2743 16 Mar, 2014 [facility] [place] [facility] [address] [id number] [place] [address]- 8477 16 Mar, 2014 [facility] [place] [facility] [address] [id number] [place] [address]- 0888 Mar, [facility] [place] [facility] [address] [id number] [place] [address]- 7994 Mar, [facility] [place] [facility] [address] [id number] [place] [address]- 3235 Mar, [facility] [place] [facility] [address] [id number] [place] [address]- 9917 Mar, [facility] [place] [facility] [address] [id number] [place] [address]- 3307 10 Mar, 2014 [facility] [place] [facility] [address] [id number] [place] [address]- 3138 09 Mar, 2014 [facility] [place] [facility] [address] [id number] [place] [address]- 2870 09 Mar, 2014 [facility] [place] [facility] [address] [id number] [place] [address]- 3328 Mar, [facility] [address] [id number] [place] [address]- 3966 Mar, [facility] [place] [facility] [address] [id number] [place] [address]- 2536 Mar, [facility] [address] [id number] [place] [address]- 5005 Mar, [facility] [place] [facility] [address] [id number] [place] [address]- 9649 February, [facility] [address] [id number] [place] [address]- 8794 February, [facility] [address] [id number] [place] [address]- 8086 February, [facility] [address] [id number] [place] [address]- 4758 February, [facility] [address] [id number] [place] [address]- 8510 February, [facility] [address] [id number] [place] [address]- 2145 February, [facility] [address] [id number] [place] [address]- 4617 February, [facility] [place] [facility] [address] [id number] [place] [address]- 8260 February, [facility] [address] [id number] [place] [address]- 2173 February, [facility] [place] [facility] [address] [id number] [place] [address]- 0695 February, [facility] [place] [facility] [address] [id number] [place] [address]- 5148 February, [facility] [place] [facility] [address] [id number] [place] [address]288 February, [facility] [place] [facility] [address] [id number] [place] [address]- 9475 February, [facility] [place] [facility] [address] [id number] [place] [address]- 5704 February, [facility] [place] [facility] [address] [id number] [place] [address]- 2662 February, [facility] [place] [facility] [address] [id number] [place] [address]- 2343 February, [facility] [place] [facility] [address] [id number] [place] [address]- 0016 February, [facility] [place] [facility] [address] [id number] [place] [address]- 9147 February, [facility] [place] [facility] [address] [id number] [place] [address]- 5588 February, [facility] [place] [facility] [address] [id number] [place] [address]- 3462 February, [facility] [place] [facility] [address] [id number] [place] [address]- 4469 February, [facility] [place] [facility] [address] [id number] [place] [address]- 9417 Jan, [facility] [place] [facility] [address] [id number] [place] [address]- 1597 Jan, [facility] [place] [facility] [address] [id number] [place] [address]- 0733 Jan, [facility] [place] [facility] [address] [id number] [place] [address]- 9369 Jan, [facility] [place] [facility] [address] [id number] [place] [address]- 8742 Jan, [facility] [place] [facility] [address] [id number] [place] [address]- 9586 Jan, [facility] [place] [facility] [address] [id number] [address]- 3016 10 Jan, 2014 [facility] [place] [facility] [address] [id number] [place] [address]- 5461 10 Jan, 2014 [facility] [place] [facility] [address] [id number] [place] [address]- 6186 21 Dec, 2013 [facility] [place] [facility] [address] [facility] [id number] [place] [address]- 1370 20 Dec, 2013 [facility] [place] [facility] [address] [facility] [id number] [place] [address]- 2482 20 Dec, 2013 [facility] [place] [facility] [address] [id number] [place] [address]- 0630 19 Dec, 2013 [facility] [place] [facility] [address] [facility] [id number] [place] [address]- 1354 19 Dec, 2013 [facility] [place] [facility] [address] [facility] [id number] [place] [address]- 7405 15 Dec, 2013 [facility] [place] [facility] [address] [facility] [id number] [place] [address]- 5806 15 Dec, 2013 [facility] [place] [facility] [address] [facility] [id number] [place] [address]- 5044 11 Dec, 2013 [facility] [place] [facility] [address] [facility] [id number] [place] [address]- 3395 10 Dec, 2013 [facility] [place] [facility] [address] [facility] [id number] [place] [address]- 0406 10 Dec, 2013 [facility] [place] [facility] [address] [facility] [id number] [place] [address]- 0852 18 Nov, 2013 [facility] [place] [facility] [address] [id number] [place] [address]- 5949 17 Nov, 2013 [facility] [place] [facility] [address] [facility] [id number] [place] [address]- 0676 17 Nov, 2013 [facility] [place] [facility] [address] [facility] [id number] [place] [address]- 7902 05 Nov, 2013 [facility] [place] [facility] [address] [id number] [place] [address]- 7606 Nov, [facility] [place] [facility] [address] [id number] [place] [address]- 0370 Oct, [facility] [place] [facility] [address] [id number] [place] [address]- 7925 Oct, [facility] [place] [facility] [address] [id number] [place] [address]- 6363 Oct, [facility] [place] [facility] [address] [id number] [place] [address]- 9714 Sep, [facility] [place] [facility] [address] [id number] [place] [address]- 5627 Sep, [facility] [address] [id number] [place] 6980 Sep, [facility] [place] [facility] [address] [id number] [place] [address]- 7068 Sep, [facility] [place] [facility] [address] [id number] [place] [address]- 8527 Aug, [facility] [place] [facility] [address] [id number] [place] [address]- 2299 Aug, [facility] [place] [facility] [address] [id number] [place] [address]- 5975 Jul, [facility] [place] [facility] [address] [id number] [place] [address]- 3316 Jul, [facility] [place] [facility] [address] [id number] [place] [address]- 1598 Jul, [facility] [place] [facility] [address] [id number] [place] [address]- 6820 Jul, [facility] [place] [facility] [address] [id number] [place] [address]- 3893 Jul, [facility] [place] [facility] [address] [id number] [place] [address]- 5375 25 Jun, 2013 [facility] [place] [facility] [address] [id number] [place] [address]- 5999 25 Jun, 2013 [facility] [place] [facility] [address] [id number] [place] [address]- 2866 19 Jun, 2013 [facility] [place] [facility] [address] [id number] [place] [address]- 1536 18 Jun, 2013 [facility] [place] [facility] [address] [id number] [place] [address] 2548 16 Jun, 2013 [facility] [place] [facility] [address] [id number] [place] [address]- 9923 12 Jun, 2013 [facility] [place] [facility] [address] [id number] [place] [address]- 3149 11 Jun, 2013 [facility] [place] [facility] [address] [id number] [place] [address]- 8028 May, [facility] [place] [facility] [address] [id number] [place] [address]- 5648 May, [facility] [place] [facility] [address] [id number] [place] [address]- 1340 Apr, [facility] [place] [facility] [address] [id number] [place] [address]- 9749 Apr, [facility] [place] [facility] [address] [id number] [place] [address]- 1275 Apr, [facility] [place] [facility] [address] [id number] [place] [address]- 5305 Mar, [facility] [place] [facility] [address] [id number] [place] [address]- 1768 Mar, [facility] [place] [facility] [address] [id number] [place] [address]- 4796 February, [facility] [place] [facility] [address] [id number] [place] [address]- 4962 February, [facility] [place] [facility] [address] [id number] [place] [address]- 4693 February, [facility] [address] [id number] [place] [address]- 6598 February, [facility] [address] [id number] [place] [address]- 6259 Jan, [facility] [address] [id number] [place] [address]- 9232 Jan, [facility] [address] [id number] [place] [address]- 3154 Jan, [facility] [address] [id number] [place] [address]- 5816 29 Dec, 2012 [facility] [address] [id number] [place] [address]- 0778 Dec, [facility] [address] [id number] [place] [address]- 1246 Dec, [facility] [address] [id number] [place] [address]- 5629 Dec, [facility] [address] [id number] [place] [address]- 2064 Nov, [facility] [address] [id number] [place] [address]- 4579 Nov, [facility] [address] [id number] [place] [address]- 6527 Oct, [facility] [address] [id number] [place] [address]- 4284 Oct, [facility] [address] [id number] [place] [address]- 3235 Oct, [facility] [address] [id number] [place] [address]- 4136 Oct, [facility] [address] [id number] [place] [address]- 5635 Aug, [facility] [place] [facility] [address] [id number] [place] [address]- 4353 Aug, [facility] [place] [facility] [address] [id number] [place] [address]- 5671 Jun, [facility] [place] [facility] [address] [id number] [place] [address]- 8403 May, [facility] [place] [facility] [address] [id number] [place] [address]- 5019 May, [facility] [place] [facility] [address] [id number] [place] [address]- 8059 Apr, [facility] [place] [facility] [address] [id number] [place] [address]- 5492 Apr, [facility] [place] [facility] [address] [id number] [place] [address] Apr, [facility] [place] [facility] [address] [id number] [place] [address] Mar, [facility] [place] [facility] [address] [id number] [place] [address] Mar, [facility] [place] [facility] [address] [id number] [place] [address] Mar, [facility] [place] [facility] [address] [id number] [place] [address] Mar, [facility] [place] [facility] [address] [id number] [place] [address] Mar, [facility] [place] [facility] [address] [id number] [place] [address] February, [facility] [place] [facility] [address] [id number] [place] [address] February, [facility] [place] [facility] [address] [id number] [place] [address] February, [facility] [place] [facility] [address] [id number] [place] [address] 16 Feb, 2012 [facility] [address] [id number] [place] [address] February, [facility] [place] [facility] [address] [id number] [place] [address] February, [facility] [address] [id number] [place] [address] February, [facility] [place] [facility] [address] [id number] [place] [address] 25 Jan, 2012 [facility] [address] [id number] [place] [address]- [address] 18 Jan, 2012 [facility] [place] [facility] [address] [id number] [place] [address]- 4096 17 Jan, 2012 [facility] [address] [id number] [place] [address]- 1832 13 Jan, 2012 [facility] [address] [id number] [place] [address]- [address]1 10 Jan, 2012 [facility] [place] [facility] [address] [id number] [place] [address]- [address] 04 Jan, 2012 [facility] [address] [id number] [place] [address]- 39[address] 30 Dec, 2011 [facility] [place] [facility] [address] [id number] [place] [address]- [address] 24 Dec, 2011 [facility] [place] [facility] [address] [id number] [place] [address]- [address] 20 Dec, 2011 [facility] [place] [facility] [address] [id number] [place] [address]- [address] 13 Dec, 2011 [facility] [place] [facility] [address] [id number] [place] [address]- [address] 06 Dec, 2011 [facility] [place] [facility] [address] [id number] [place] [address]- [address] 28 Nov, 2011 [facility] [place] [facility] [address] [id number] [place] [address] Nov, [facility] [place] [facility] [address] [id number] [place] [address]- [address] Nov, [facility] [place] [facility] [address] [id number] [place] [address]- [address] Nov, [facility] [place] [facility] [address] [id number] [place] [address]- 8316 Nov, [facility] [place] [facility] [address] [id number] [place] [address]- [address] Nov, [facility] [place] [facility] [address] [id number] [place] [address]- 1146 Oct, [facility] [place] [facility] [address] [id number] [place] [address] 89[address] Oct, [facility] [place] [facility] [address] [id number] [place] [address] 48[address] Oct, [facility] [place] [facility] [address] [id number] [place] [address]- [address] Oct, [facility] [place] [facility] [address] [id number] [place] [address]- [address] Oct, [facility] [facility] [address] [id number] [place] [address] Sep, [facility] [place] [facility] [address] [id number] [place] [address] 25[address] Sep, [facility] [place] [facility] [address] [id number] [place] [address] 25[address] Sep, [facility] [place] [facility] [address] [id number] [place] [address]- [address] Sep, [facility] [place] [facility] [address] [id number] [place] [address]- [address] Sep, [facility] [place] [facility] [address] [id number] [place] [address] 13 Sep, 2011 [facility] [place] [facility] [address] [id number] [place] [address]- [address] Sep, [facility] [place] [facility] [address] [id number] [place] [address] Sep, [facility] [place] [facility] [address] [id number] [place] [address]- [address] Sep, [facility] [place] [facility] [address] [id number] [place] [address] 1719 Aug, [facility] [place] [facility] [address] [id number] [place] [address]- [address] Aug, [facility] [place] [facility] [address] [id number] [place] [address]- 1166 Aug, [facility] [place] [facility] [address] [id number] [place] [address]- 27[address] Aug, [facility] [place] [facility] [address] [id number] [place] [address]- [address] Aug, [facility] [place] [facility] [address] [id number] [place] [address]- 2736 Aug, [facility] [place] [facility] [address] [id number] [place] [address]- 65[address] Aug, [facility] [place] [facility] [address] [id number] [place] [address]- 9168 Aug, [facility] [place] [facility] [address] [id number] [place] [address] Aug, [facility] [place] [facility] [address] [id number] [place] [address]- 4913 Aug, [facility] [place] [facility] [address] [id number] [place] [address]- [address]991 Aug, [facility] [place] [facility] [address] [id number] [place] [address] Aug, [facility] [place] [facility] [address] [id number] [place] [address]- [address] Jul, [facility] [place] [facility] [address] [id number] [place] [address]- [address] Jul, [facility] [place] [facility] [address] [id number] [place] [address]- 8510 Jul, [facility] [place] [facility] [address] [id number] [place] [address]- [address]99 Jul, [facility] [place] [facility] [address] [id number] [place] [address]- 379[address] Jul, [facility] [place] [facility] [address] [id number] [place] [address]- 1270 Jul, [facility] [place] [facility] [address] [id number] [place] [address]- [address]397 Jul, [facility] [place] [facility] [address] [id number] [place] [address]- [address] Jul, [facility] [place] [facility] [address] [id number] [place] [address]- 45[address] Jul, [facility] [place] [facility] [address] [id number] [place] [address]- 4418 Jul, [facility] [place] [facility] [address] [id number] [place] [address]- [address]163 Nov, [facility] [place] [facility] [address] [id number] [place] [id number] Aug, [facility] [place] [facility] [address] [id number] [place] [address] Aug, [facility] [place] [facility] [address] [id number] [place] [address] Aug, [facility] [place] [facility] [address] [id number] [place] [address] Aug, [facility] [place] [facility] [address] [id number] [place] [address] Jul, IMMUNIZATIONS No Known Immunizations SOCIAL HISTORY Never Assessed REASON FOR VISIT f/u PLAN OF CARE Activity Details Follow Up 1 Week Reason: f/u VITAL SIGNS Height 65.75 in 2018-05-11 Weight 192.7 lbs 2018-05-11 Heart Rate 120 bpm 2018-05-11 Respiratory Rate 22 2018-05-11 BMI 31.34 kg/m2 2018-05-11 Blood pressure systolic 100 mmHg 2018-05-11 Blood pressure diastolic 60 mmHg 2018-05-11 MEDICATIONS Medication Instructions Dosage Frequency Start Date End Date Duration Status Topamax 100 mg Orally Twice a day 1.5 tablet 12h Active Levemir 100 UNIT/ML Subcutaneous at bedtime 70 units Active Trintellix 20 mg orally Once a day 1 tablet 24h Active Hydrocodone-Acetaminophen 10-325 mg 1 Tablet by Oral route every 8 hours PRN pain Jul, Active NovoLog Mix 70/30 (70-30) 100 UNIT/ML Subcutaneous 3 times a day 27 units 8h Active Intuniv 1 MG Orally 2 times a day 1 tablet 12h Active Metformin HCl 1000 MG Orally 2 times a day 1 tablet 12h Not-Taking Ativan 1 MG Orally 2 times a day as needed 1 tablet Active Seroquel 100 MG Orally every 6 hours as needed 1 tablet Active Levothyroxine Sodium 75 MCG Orally Once a day 1 tablet on an empty stomach in the morning 24h Active Nitrofurantoin Monohyd Macro 100 MG Orally every 12 hrs 1 capsule with food 12h Not-Taking Abilify 30 MG Orally Once a day 1 tablet 24h Active Trileptal 600 MG Orally Twice a day 1 tablet 12h Active Ventolin HFA 90 MCG/ACT Inhalation every 6 hrs 2 puffs as needed 6h Active Cyproheptadine HCl 4 MG Orally Twice a day 1 tablet 12h 30 days Active RESULTS No Results PROCEDURES Procedure Date Ordered Result Body Site [facility] VISIT ESTABLISHED PATIENT May 11, 2018 INSTRUCTIONS MEDICATIONS ADMINISTERED No Known Medications MEDICAL (GENERAL) HISTORY Type Description Date Medical History diabetes Medical History thyroid Surgical History appendix Surgical History gallbladder Surgical History eyes Surgical History hip Surgical History MRI on back and pelvis 06/08 Hospitalization History surgeries Hospitalization History [facility] Suicide attempt by hanging 06/14/2016 Hospitalization History [facility] 01/30/2018-02/10/2008 Hospitalization History [facility] 05/04/18-05/09/18
--- OUTSIDE RECORDS SUMMARY | 2018-08-15 20:14 | XMS REPORT ---
Author Author SILVERIO REGAN Organization 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 13171261 Problem Schizoaffective disorder, depressive type F25.1 Active 48775256 Problem Borderline personality disorder F60.3 Active 79800820 Problem Attention deficit hyperactivity disorder (ADHD), inattentive type, 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 63262451 Problem Schizoaffective disorder, unspecified F25.9 Active 27279636 Problem High risk medication use Z79.899 Active 683849371 Problem Posttraumatic stress disorder F43.10 Active 97242536 Problem Obsessive-compulsive disorders 300.3 Active 408224281 Problem Generalized anxiety disorder 300.02 Active 37627337 Problem Attention deficit disorder 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 314.00 Active 49298821 Problem Bipolar disorder, unspecified 296.80 Active 46900018 Problem Posttraumatic stress disorder 309.81 Active 31817929 Problem Paranoid schizophrenia, unspecified condition 295.30 Active [id number] ALLERGIES No Information ENCOUNTERS Encounter Location Date Diagnosis [facility] [address] [facility] [id number] [address] Jul, 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 [id number] [place] [address]46- 4491 May, [facility] [address] [facility] [id number], [place] [address] May, Paranoid schizophrenia F20.0 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 [address] [id number] [address] Apr, 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 [address], [place] [address] Apr, [facility] [id number] [address] 3594 Apr, Schizoaffective disorder, depressive type F25.1 and Borderline personality disorder F60.3 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 [address] [facility] [id number], [place] [address] Apr, 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 [address], [place] [address] Apr, [facility] [address], [place] [address]307 Mar, Paranoid schizophrenia F20.0 [facility] [address], [place] [address] 18[address] Mar, 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 [address], [place] [address] 14[address] February, Paranoid schizophrenia F20.0 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 [address] [address] 2587 February, [facility] [address], [place] [address] 9704 February, Paranoid schizophrenia F20.0 [facility] [address], [place] [address]- 8002 February, Paranoid schizophrenia F20.0 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 [id number] [place] [address] 70095- 7876 Jan, Paranoid schizophrenia F20.0 [facility] [id number] [place] [address] 30401- 6629 Jan, Paranoid schizophrenia F20.0 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 [address], [place] [address] Dec, 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 [address], [place] [address]- 1443 Nov, [facility] [address], [place] [address]- 7289 Oct, Paranoid schizophrenia F20.0 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 [address], [place] [address] 1989 Oct, [facility] [address], [place] [address]- 2706 Oct, [facility] [address], [place] [address]- 6[address] Sep, 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 [address], [place] [address]- 1262 Sep, Paranoid schizophrenia F20.0 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 [address], [place] [address]- 6627 Aug, 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 [address], [place] [address]- 6216 Jul, Paranoid schizophrenia F20.0 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 [address], [place] [address]- 8559 May, Other retirement (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 Z79.899 [facility] [address], [place] [address]- 4966 May, [facility] [address], [place] [address]- 7754 May, 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 [address], [place] [address]- 4587 May, 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 [id number], [place] [address]- 2288 Apr, Paranoid schizophrenia F20.0 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 [address], [place] [address]- 0304 February, 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 [address], [place] [address]- 0395 Nov, High risk medication use Z79.899 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 [id number] [place] [address] 97607- 0602 Aug, 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 [address], [place] [address]- 8594 Jul, 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 [id number] [place] [address] 76764- 8527 Jun, [facility] [id number] [place] [address] 22283- 9203 May, Paranoid schizophrenia F20.0 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 [id number] [place] [address] 79987- 0809 May, [facility] [id number] [place] [address] 73605- 2281 May, Paranoid schizophrenia F20.0 [facility] [id number] [place] [address] 01566- 1664 May, [facility] [id number] [place] [address] 21090- 6958 May, Paranoid schizophrenia F20.0 [facility] [id number] [place] [address] 61777- 0370 May, Schizoaffective disorder, unspecified F25.9 [facility] [address], [place] [address]- 1549 May, Schizoaffective disorder, unspecified F25.9 [facility] [id number], [place] [address]- 0757 May, [facility] [id number] [place] [address] 57227- 2532 May, Paranoid schizophrenia F20.0 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 [id number] [place] [address]- 7376 Mar, [facility] [address] 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 [id number] [place]- 8918 February, [facility] [address] [id number] [place] [address]- 9351 February, [facility] [address] [facility] [id number] [place] [address] 3273 February, [facility] [address] [facility] [id number] [place] [address]- 9116 Jan, Paranoid schizophrenia F20.0 [facility] [place] [facility] [address] [id number] [address] Jan, Dental examination Z01.20 [facility] [address] [id number] [address] Jan, Dental caries K02.9 [facility] [address] [id number] [address] Jan, Dental examination Z01.20 [facility] [address] [id number][place] [address] Dec, Encounter for dental examination Z01.20 [facility] [address] [facility] [id number], [place] [address]- 3872 Dec, Paranoid schizophrenia F20.0 [facility] [address] [id number][place] [address] Dec, Dental examination Z01.20 [facility] [address], [place] [address]- 2785 Dec, 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 [address], [place] [address]- 0877 Nov, Schizoaffective disorder, unspecified F25.9 [facility] [id number], [place] [address]- 3926 Oct, Paranoid schizophrenia F20.0 [facility] [id number], [place] [address]- 0381 Oct, 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 [address] [address]34 Sep, 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 [id number] [place] [address] 15437- 7133 Aug, Paranoid schizophrenia F20.0 [facility] [address], [place] [address]- 6248 Aug, 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 [id number] [place] [address] 06167- 4478 Jul, Bipolar disorder, unspecified F31.9 [facility] [address], [place] [address]- 6279 Jul, [facility] [address] [id number], [place] [address]- 9452 Jun, [facility] [address], [place] [address]- 6926 Jun, Schizoaffective disorder, chronic 295.72 ; Posttraumatic stress disorder 309.81 and Attention deficit disorder 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 314.00 [facility] [address], [place] [address]- 4921 May, [facility] [id number] [place] [address] 80956- 9219 May, [facility] [address], [place] [address]- 7913 May, Schizoaffective disorder, chronic 295.72 ; Posttraumatic stress disorder 309.81 ; Attention deficit disorder 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 314.00 and Bipolar disorder, unspecified 296.80 [facility] [address], [place] [address]- 4987 Apr, Schizoaffective disorder, chronic 295.72 [facility] [address], [place] [address]- 8224 Apr, [facility] [id number] [place] [address] 38165- 2730 Apr, Schizoaffective disorder, chronic 295.72 ; Posttraumatic stress disorder 309.81 and Attention deficit disorder 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 314.00 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 [address] [id number], [place] [address]- 3950 Mar, [facility] [id number] [place] [address] 18271- 6733 Mar, [facility] [address], [place] [address]- 5867 Mar, [facility] [address], [place] [address]- 8598 Mar, [facility] [address], [place] [address]- 9830 February, Schizoaffective disorder, chronic 295.72 [facility] [address], [place] [address]- 7527 February, [facility] [address], [place] [address]- 6461 February, Attention deficit disorder 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 314.00 ; Posttraumatic stress disorder 309.81 and Schizoaffective disorder, chronic 295.72 [facility] [id number], [place] [address] Jan, [facility] [place] [facility] [address] [id number] [place] [address] 14 Jan, 2015 [facility] [place] [facility] [address] [id number] [place] [address] Jan, [facility] [place] [facility] [address] [id number] [place] [address] Dec, [facility] [place] [facility] [address] [id number] [place] [address] Dec, [facility] [place] [facility] [address] [id number] [place] [address] Dec, [facility] [place] [facility] [address] [id number] [place] [address] Dec, [facility] [place] [facility] [address] [id number] [place] [address] Dec, [facility] [place] [facility] [address] [id number] [place] [address] Dec, [facility] [place] [facility] [address] [id number] [place] [address] Dec, [facility] [place] [facility] [address] [id number] [place] [address] Dec, [facility] [place] [facility] [address] [id number] [place] [address] Nov, [facility] [place] [facility] [address] [address] [id number] [place] [address] Nov, [facility] [place] [facility] [address] [id number] [place] [address] Nov, [facility] [place] [facility] [address] [id number] [place] [address]358 Nov, [facility] [place] [facility] [address] [id number] [place] [address] 2514 Nov, [facility] [place] [facility] [address] [id number] [address] Nov, [facility] [place] [facility] [address] [id number] [place] [address] 8276 Nov, [facility] [place] [facility] [address] [id number] [place] [address] Nov, [facility] [place] [facility] [address] [id number] [place] [address] 9823 Nov, [facility] [place] [facility] [address] [id number] [place] [address]- 2969 Nov, [facility] [place] [facility] [address] [id number] [place] [address] 4643 Oct, [facility] [place] [facility] [address] [id number] [place] [address]- 5722 Oct, [facility] [place] [facility] [address] [id number] [place] [address] 3211 Oct, [facility] [place] [facility] [address] [id number] [place] [address] 9176 Oct, [facility] [place] [facility] [address] [id number] [place] [address]- 6114 Oct, [facility] [place] [facility] [address] [facility] [id number] [place] [address]- 2627 Oct, [facility] [place] [facility] [address] [id number] [place] [address]- 9373 Oct, [facility] [place] [facility] [address] [id number] [place] [address]- 4673 Sep, [facility] [place] [facility] [address] [id number] [place] [address]- 8699 Sep, [facility] [place] [facility] [address] [id number] [place] [address]- 2321 Sep, [facility] [place] [facility] [address] [id number] [place] [address]- 5323 Sep, [facility] [place] [facility] [address] [id number] [place] [address]- 8550 Aug, [facility] [place] [facility] [address] [id number] [place] [address]- 3206 Aug, [facility] [place] [facility] [address] [id number] [place] [address]- 3607 Aug, [facility] [place] [facility] [address] [id number] [place] [address]- 7545 Aug, [facility] [place] [facility] [address] [id number] [place] [address]- 7084 Aug, [facility] [place] [facility] [address] [id number] [place] [address]- 7326 Aug, [facility] [place] [facility] [address] [id number] [place] [address]- 1620 Jul, [facility] [place] [facility] [address] [id number] [place] [address]- 9028 Jul, [facility] [place] [facility] [address] [id number] [place] [address]- 9773 Jul, [facility] [place] [facility] [address] [id number] [place] [address]- 8742 Jul, [facility] [place] [facility] [address] [id number] [place] [address]- 4985 Jul, [facility] [place] [facility] [address] [id number] [place] [address]- 0695 Jul, [facility] [place] [facility] [address] [id number] [place] [address]- 4000 Jun, [facility] [place] [facility] [address] [id number] [place] [address]- 6593 27 Jun, 2014 [facility] [place] [facility] [address] [id number] [place] [address]- 5302 26 Jun, 2014 [facility] [place] [facility] [address] [id number] [place] [address]- 8424 Jun, 2013 [facility] [place] [facility] [address] [id number] [place] [address]- 0096 Jun, 2013 [facility] [place] [facility] [address] [id number] [place] [address]- 1286 Jun, [facility] [place] [facility] [address] [id number] [place] [address] 2546 Jun, 2013 [facility] [place] [facility] [address] [id number] [place] [address] 2546 Jun, 2013 [facility] [place] [facility] [address] [id number] [place] [address]- 6649 Jun, 2013 [facility] [place] [facility] [address] [id number] [place] [address]- 3087 Jun, [facility] [place] [facility] [address] [id number] [place] [address]- 3926 Jun, [facility] [place] [facility] [address] [id number] [place] [address]- 9739 May, [facility] [place] [facility] [address] [id number] [place] [address]- 7283 May, [facility] [place] [facility] [address] [id number] [place] [address]- 7216 May, [facility] [place] [facility] [address] [id number] [place] [address]- 4126 May, [facility] [place] [facility] [address] [id number] [place] [address]- 6858 May, [facility] [place] [facility] [address] [id number] [place] [address]- 1430 May, [facility] [place] [facility] [address] [id number] [place] [address]- 2500 May, [facility] [place] [facility] [address] [id number] [place] [address]- 7396 May, [facility] [place] [facility] [address] [id number] [place] [address]- 7110 May, [facility] [place] [facility] [address] [id number] [place] [address]- 5338 May, [facility] [place] [facility] [address] [id number] [place] [address]- 5683 Apr, [facility] [place] [facility] [address] [id number] [place] [address]- 4308 Apr, [facility] [place] [facility] [address] [id number] [place] [address]- 6166 Apr, [facility] [place] [facility] [address] [id number] [place] [address]- 3937 Apr, [facility] [place] [facility] [address] [id number] [place] [address]- 8798 Apr, [facility] [place] [facility] [address] [id number] [place] [address]- 2670 Apr, [facility] [place] [facility] [address] [id number] [place] [address]- 6927 Apr, [facility] [place] [facility] [address] [id number] [place] [address]- 3919 Apr, [facility] [place] [facility] [address] [id number] [place] [address]- 4225 Apr, [facility] [place] [facility] [address] [id number] [place] [address]- 2449 Apr, [facility] [place] [facility] [address] [id number] [place] [address]- 2491 Mar, [facility] [place] [facility] [address] [id number] [place] [address]- 3583 Mar, [facility] [place] [facility] [address] [id number] [place] [address]- 1989 Mar, [facility] [place] [facility] [address] [id number] [place] [address]- 3514 Mar, [facility] [place] [facility] [address] [id number] [place] [address]- 4897 Mar, [facility] [place] [facility] [address] [id number] [place] [address]- 8355 Mar, [facility] [place] [facility] [address] [id number] [place] [address]- 9401 18 Mar, 2014 [facility] [place] [facility] [address] [id number] [place] [address]- 4408 Mar, [facility] [place] [facility] [address] [id number] [place] [address]- 4789 16 Mar, 2014 [facility] [place] [facility] [address] [id number] [place] [address]- 0543 Mar, [facility] [place] [facility] [address] [id number] [place] [address]- 9616 Mar, [facility] [place] [facility] [address] [id number] [place] [address]- 7856 Mar, [facility] [place] [facility] [address] [id number] [place] [address]- 0137 Mar, [facility] [place] [facility] [address] [id number] [place] [address]- 2927 Mar, [facility] [place] [facility] [address] [id number] [place] [address]- 0313 Mar, [facility] [place] [facility] [address] [id number], [place] [address]- 1731 Mar, [facility] [place] [facility] [address] [id number] [place] [address]- 2429 Mar, [facility] [place] [facility] [address] [id number] [place] [address]- 8610 Mar, [facility] [place] [facility] [address] [id number] [place] [address]- 7618 04 Mar, 2014 [facility] [place] [facility] [address] [id number] [place] [address]- 5869 Mar, [facility] [address] [id number] [place] [address]- 7826 February, [facility] [address] [id number] [place] [address]- 0986 February, [facility] [address] [id number] [place] [address]- 2233 February, [facility] [place] [facility] [address] [id number] [place] [address]- 3747 February, [facility] [address] [id number] [place] [address]- 3441 February, [facility] [address] [id number] [place] [address]- 1868 February, [facility] [address] [id number] [place] [address]- 0444 February, [facility] [address] [id number] [place] [address]- 6467 February, [facility] [address] [id number] [place] [address]- 3172 February, [facility] [address] [id number] [place] [address]- 0423 February, [facility] [address] [id number] [place] [address]- 1328 February, [facility] [place] [facility] [address] [id number] [place] [address]- 8176 February, [facility] [place] [facility] [address] [id number] [place] [address]- 4326 February, [facility] [place] [facility] [address] [id number] [place] [address]- 4832 February, [facility] [place] [facility] [address] [id number] [place] [address]- 2334 February, [facility] [place] [facility] [address] [id number] [place] [address]- 1338 February, [facility] [place] [facility] [address] [id number] [place] [address]- 6313 February, [facility] [place] [facility] [address] [id number] [place] [address]- 1616 February, [facility] [place] [facility] [address] [id number] [place] [address]- 3697 February, [facility] [place] [facility] [address] [id number] [place] [address]- 2072 February, [facility] [place] [facility] [address] [id number] [place] [address]- 3985 February, [facility] [place] [facility] [address] [id number] [place] [address]- 2784 Jan, [facility] [place] [facility] [address] [id number] [place] [address]- 0756 Jan, [facility] [place] [facility] [address] [id number] [place] [address]- 0535 Jan, [facility] [place] [facility] [address] [id number] [place] [address]- 3271 Jan, [facility] [place] [facility] [address] [id number] [place] [address]- 9705 Jan, [facility] [place] [facility] [address] [id number] [place] [address]- 0792 Jan, [facility] [place] [facility] [address] [id number] [place] [address]- 9737 Jan, [facility] [place] [facility] [address] [id number] [place] [address]- 2380 Jan, [facility] [place] [facility] [address] [id number] [place] [address]- 8946 Dec, [facility] [place] [facility] [address] [id number] [place] [address]- 3803 20 Dec, 2013 [facility] [place] [facility] [address] [id number] [place] [address]- 3046 20 Dec, 2013 [facility] [place] [facility] [address] [id number] [place] [address]- 0844 19 Dec, 2013 [facility] [place] [facility] [address] [id number] [place] [address]- 7323 19 Dec, 2013 [facility] [place] [facility] [address] [id number] [place] [address]- 1819 15 Dec, 2013 [facility] [place] [facility] [address] [id number] [place] [address]- 7712 15 Dec, 2013 [facility] [place] [facility] [address] [id number] [place] [address]- 0818 11 Dec, 2013 [facility] [place] [facility] [address] [id number] [place] [address]- 4760 10 Dec, 2013 [facility] [place] [facility] [address] [id number] [place] [address]- 6491 10 Dec, 2013 [facility] [place] [facility] [address] [id number] [place] [address]- 4588 18 Nov, 2013 [facility] [place] [facility] [address] [id number] [place] [address]- 1367 Nov, [facility] [place] [facility] [address] [id number] [place] [address]- 7568 Nov, [facility] [place] [facility] [address] [id number] [place] [address]- 3120 Nov, [facility] [place] [facility] [address] [id number] [place] [address]- 6956 Nov, [facility] [place] [facility] [address] [id number] [place] [address]- 7569 Oct, [facility] [place] [facility] [address] [id number] [place] [address]- 0954 Oct, [facility] [place] [facility] [address] [id number] [place] [address]- 8569 Oct, [facility] [address] [id number] [place] [address]- 0841 Sep, [facility] [place] [facility] [address] [id number] [place] [address]- 4918 Sep, [facility] [place] [facility] [address] [id number] [place] [address]- 1021 Sep, [facility] [place] [facility] [address] [id number] [place] [address]- 5651 Sep, [facility] [place] [facility] [address] [id number] [place] [address]- 0337 Aug, [facility] [place] [facility] [address] [id number] [place] [address]- 9518 Aug, [facility] [place] [facility] [address] [id number] [place] [address]- 8217 Jul, [facility] [address] [id number] [place] [address]- 4492 Jul, [facility] [place] [facility] [address] [id number] [place] [address]- 8326 Jul, [facility] [place] [facility] [address] [id number] [place] [address]- 2421 Jul, [facility] [place] [facility] [address] [id number] [place] [address]- 4335 Jul, [facility] [place] [facility] [address] [id number] [place] [address]- 6069 Jun, [facility] [place] [facility] [address] [id number] [place] [address]- 1269 Jun, [facility] [place] [facility] [address] [id number] [place] [address]- 7211 19 Jun, 2013 [facility] [place] [facility] [address] [id number] [place] [address]- 6023 18 Jun, 2013 [facility] [address] [id number] [place] [address]- 1494 16 Jun, 2013 [facility] [place] [facility] [address] [id number] [place] [address]- 9910 12 Jun, 2013 [facility] [place] [facility] [address] [id number] [place] [address]- 7491 11 Jun, 2013 [facility] [place] [facility] [address] [id number] [place] [address]- 6247 30 May, 2013 [facility] [place] [facility] [address] [id number] [place] [address]- 4816 May, [facility] [place] [facility] [address] [id number] [place] [address]- 4926 Apr, [facility] [place] [facility] [address] [id number] [place] [address]- 3805 Apr, [facility] [place] [facility] [address] [id number] [place] [address]- 9350 Apr, [facility] [place] [facility] [address] [id number] [place] [address]- 5091 Mar, [facility] [place] [facility] [address] [id number] [place] [address]- 5246 Mar, [facility] [place] [facility] [address] [id number] [place] [address]- 7148 February, [facility] [place] [facility] [address] [id number] [place] [address]- 7172 February, [facility] [place] [facility] [address] [id number] [place] [address]- 6598 February, [facility] [place] [facility] [address] [id number] [place] [address]- 6363 February, [facility] [place] [facility] [address] [id number] [place] [address]- 7843 Jan, [facility] [place] [facility] [address] [id number] [place] [address]- 5124 17 Jan, 2013 [facility] [address] [id number] [place] [address]- 8868 16 Jan, 2013 [facility] [place] [facility] [address] [id number] [place] [address]- 6069 29 Dec, 2012 [facility] [address] [id number] [place] [address]- 8028 Dec, [facility] [place] [facility] [address] [id number] [place] [address]- 3046 Dec, [facility] [place] [facility] [address] [id number] [place] [address]- 5304 08 Dec, 2012 [facility] [place] [facility] [address] [id number] [place] [address]- 9950 20 Nov, 2012 [facility] [address] [id number] [place] [address]- 3421 Nov, [facility] [place] [facility] [address] [id number] [place] [address]- 8260 Oct, [facility] [place] [facility] [address] [id number] [place] [address]- 6375 Oct, [facility] [address] [id number] [place] [address]- 1296 Oct, [facility] [place] [facility] [address] [id number] [place] [address]- 6096 Oct, [facility] [place] [facility] [address] [id number] [place] [address]- 2587 Aug, [facility] [place] [facility] [address] [id number] [place] [address]- 3104 Aug, [facility] [place] [facility] [address] [id number] [place] [address]- 7230 Jun, [facility] [place] [facility] [address] [id number] [place] [address]- 8137 May, [facility] [place] [facility] [address] [id number] [place] [address]- 1163 May, [facility] [place] [facility] [address] [id number] [place] [address]- 3868 Apr, [facility] [place] [facility] [address] [id number] [place] [address] 2546 Apr, [facility] [place] [facility] [address] [id number] [place] [address]- 8030 Apr, [facility] [address] [id number] [place] [address]- 1345 Mar, [facility] [place] [facility] [address] [id number] [place] [address]- 7072 Mar, [facility] [address] [id number] [place] [address]- 1629 Mar, [facility] [address] [id number] [place] [address]- 8387 Mar, [facility] [place] [facility] [address] [id number] [place] [address] Mar, [facility] [place] [facility] [address] [id number] [place] [address] February, [facility] [place] [facility] [address] [id number] [place] [address] February, [facility] [place] [facility] [address] [id number] [place] [address] February, [facility] [place] [facility] [address] [id number] [place] [address] February, [facility] [place] [facility] [address] [id number] [place] [address] February, [facility] [place] [facility] [address] [id number] [place] [address] February, [facility] [place] [facility] [address] [id number] [place] [address] February, [facility] [place] [facility] [address] [id number] [place] [address] 25 Jan, 2012 [facility] [place] [facility] [address] [id number] [place] [address]246 18 Jan, 2012 [facility] [place] [facility] [address] [id number] [place] [address] 17 Jan, 2012 [facility] [place] [facility] [address] [id number] [place] [address]72 13 Jan, 2012 [facility] [place] [facility] [address] [id number] [place] [address] 4942 10 Jan, 2012 [facility] [place] [facility] [address] [id number] [place] [address] 04 Jan, 2012 [facility] [place] [facility] [address] [id number] [place] [address] 0974 30 Dec, 2011 [facility] [place] [facility] [address] [id number] [place] [address] 4218 24 Dec, 2011 [facility] [place] [facility] [address] [id number] [place] [address]68 Dec, [facility] [place] [facility] [address] [id number] [place] [address] 6770 Dec, [facility] [place] [facility] [address] [id number] [place] [address] 3580 Dec, [facility] [place] [facility] [address] [id number] [place] [address]279 28 Nov, 2011 [facility] [place] [facility] [address] [id number] [place] [address]678 Nov, [facility] [place] [facility] [address] [id number] [place] [address] 25 Nov, 2011 [facility] [place] [facility] [address] [facility] [id number] [place] [address] 14 Nov, 2011 [facility] [place] [facility] [address] [id number] [place] [address] 9877 10 Nov, 2011 [facility] [address] [id number] [place] [address] Nov, [facility] [place] [facility] [address] [id number] [place] [address] 47[address] Oct, [facility] [address] [id number] [place] [address]14 Oct, [facility] [address] [id number] [place] [address]165 Oct, [facility] [place] [facility] [address] [id number] [place] [address] Oct, [facility] [address] [id number] [place] [address]163 Oct, [facility] [address] [id number] [place] [address] Sep, [facility] [address] [id number] [place] [address] Sep, [facility] [address] [id number] [place] [address] 3600 Sep, [facility] [address] [id number] [place] [address] 14 Sep, 2011 [facility] [place] [facility] [address] [id number] [place] [address] 14 Sep, 2011 [facility] [place] [facility] [address] [id number] [place] [address] 13 Sep, 2011 [facility] [place] [facility] [address] [id number] [place] [address]- [address]96 12 Sep, 2011 [facility] [place] [facility] [address] [id number] [place] [address]- [address]164 09 Sep, 2011 [facility] [place] [facility] [address] [id number] [place] [address] Sep, [facility] [place] [facility] [address] [id number] [place] [address] Aug, [facility] [place] [facility] [address] [id number] [place] [address] 0804 Aug, [facility] [place] [facility] [address] [facility] [id number] [place] [address] 0107 Aug, [facility] [place] [facility] [address] [id number], [place] [address] Aug, [facility] [place] [facility] [address] [id number] [place] [address]- 6412 Aug, [facility] [place] [facility] [address] [id number], [place] [address]843 Aug, [facility] [place] [facility] [address] [id number], [place] [address] Aug, [facility] [place] [facility] [address] [id number], [place] [address] Aug, [facility] [place] [facility] [address] [id number], [place] [address] Aug, [facility] [place] [facility] [address] [id number], [place] [address] 45[address] Aug, [facility] [place] [facility] [address] [id number], [place] [address] 1552 Aug, [facility] [place] [facility] [address] [id number], [place] [address] 59[address] Aug, [facility] [place] [facility] [address] [id number], [place] [address] Jul, [facility] [place] [facility] [address] [id number], [place] [address] 8270 Jul, [facility] [place] [facility] [address] [id number], [place] [address]- [address] Jul, [facility] [place] [facility] [id number], [place] [address] Jul, [facility] [id number], [place] [address] Jul, [facility] [id number], [place] [address] 6960 Jul, [facility] [id number], [place] [address] Jul, [facility] [id number], [place] [address] Jul, [facility] [id number] [place] [address] Jul, [facility] [id number], [place] [address] Jul, [facility] [id number] [place] [address]- 275[address] Nov, [facility] [id number], [place] [address] Aug, [facility] [id number], [place] [address] 75[address] Aug, [facility] [id number], [place] [address]- 53[address] Aug, [facility] [id number], [place] [address] Aug, [facility] [id number], [place] [address] 8034 Jul, IMMUNIZATIONS No Known Immunizations SOCIAL HISTORY Never Assessed REASON FOR VISIT Medication question PLAN OF CARE VITAL SIGNS MEDICATIONS Unknown [...] Suicide attempt by hanging 06/14/[address] [facility] 01/30/2018-02/10/2008 Hospitalization History [facility] 05/04/18-05/09/18
--- OUTSIDE RECORDS SUMMARY | 2018-08-15 20:15 | XMS REPORT ---
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 10098703 Problem Schizoaffective disorder, depressive type F25.1 Active 48742447 Problem Borderline personality disorder F60.3 Active 49692273 Problem Attention deficit hyperactivity disorder (ADHD), inattentive type, 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 47481780 Problem Schizoaffective disorder, unspecified F25.9 Active 92931260 Problem High risk medication use Z79.899 Active 636387431 Problem Posttraumatic stress disorder F43.10 Active 97784137 Problem Obsessive-compulsive disorders 300.3 Active 776166506 Problem Generalized anxiety disorder 300.02 Active 24778634 Problem Attention deficit disorder 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 314.00 Active 70961116 Problem Bipolar disorder, unspecified 296.80 Active 08856596 Problem Posttraumatic stress disorder 309.81 Active 30546490 Problem Paranoid schizophrenia, unspecified condition 295.30 Active 54620902 ALLERGIES Substance Reaction Event Type Date Status [...] Apr, Active ENCOUNTERS Encounter Location Date Diagnosis [facility] [address] [facility] [id number], [place] [address] Jul, [facility] [address], [place] [address] May, Paranoid schizophrenia F20.0 ; Posttraumatic stress disorder F43.10 ; Attention deficit hyperactivity disorder (ADHD), inattentive type, 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 and Borderline personality disorder F60.3 [facility] [id number], [place] [address] May, [facility] [id number], [place] [address] May, Paranoid schizophrenia F20.0 [facility] [id number], [place] [address] May, Paranoid schizophrenia F20.0 ; Posttraumatic stress disorder F43.10 ; Attention deficit hyperactivity disorder (ADHD), inattentive type, 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 and Borderline personality disorder F60.3 [facility] [id number], [place] [address] Apr, [facility] [id number], [place] [address] Apr, Paranoid schizophrenia F20.0 ; Posttraumatic stress disorder F43.10 ; Attention deficit hyperactivity disorder (ADHD), inattentive type, 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3 [facility] [id number], [place] [address] Apr, [facility] [id number], [place] [address] Apr, Paranoid schizophrenia F20.0 ; Posttraumatic stress disorder F43.10 ; Attention deficit hyperactivity disorder (ADHD), inattentive type, 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 and Borderline personality disorder F60.3 [facility] [id number], [place] [address] Apr, [facility] [id number] [address] Mar, Paranoid schizophrenia F20.0 [facility] [id number], [place] [address] Mar, [facility] [id number], [place] [address] Mar, Paranoid schizophrenia F20.0 ; Posttraumatic stress disorder F43.10 ; Attention deficit hyperactivity disorder (ADHD), inattentive type, 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 and Borderline personality disorder F60.3 [facility] [id number], [place] [address] February, Paranoid schizophrenia F20.0 [facility] [id number], [place] [address] February, Paranoid schizophrenia F20.0 ; Posttraumatic stress disorder F43.10 ; Attention deficit hyperactivity disorder (ADHD), inattentive type, 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 and Borderline personality disorder F60.3 [facility] [id number], [place] [address] February, Paranoid schizophrenia F20.0 ; Posttraumatic stress disorder F43.10 ; Attention deficit hyperactivity disorder (ADHD), inattentive type, 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 and Borderline personality disorder F60.3 [facility] [id number], [place] [address] February, [facility] [id number], [place] [address] 4[address] February, Paranoid schizophrenia F20.0 [facility] [id number] [address] February, Paranoid schizophrenia F20.0 [facility] [id number], [place] [address] February, Paranoid schizophrenia F20.0 ; Posttraumatic stress disorder F43.10 ; Attention deficit hyperactivity disorder (ADHD), inattentive type, 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 and Borderline personality disorder F60.3 [facility] [id number], [place] [address] Jan, Paranoid schizophrenia F20.0 ; Posttraumatic stress disorder F43.10 ; Attention deficit hyperactivity disorder (ADHD), inattentive type, 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 and Borderline personality disorder F60.3 [facility] [id number], [place] [address] Jan, Paranoid schizophrenia F20.0 [facility] [id number], [place] [address] Jan, Paranoid schizophrenia F20.0 [facility] [id number], [place] [address] Jan, Paranoid schizophrenia F20.0 ; Posttraumatic stress disorder F43.10 ; Attention deficit hyperactivity disorder (ADHD), inattentive type, 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 and Borderline personality disorder F60.3 [facility] [id number], [place] [address] Dec, [facility] [id number], [place] [address] Nov, Paranoid schizophrenia F20.0 ; Posttraumatic stress disorder F43.10 ; Attention deficit hyperactivity disorder (ADHD), inattentive type, 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 and Borderline personality disorder F60.3 [facility] [id number], [place] [address] Nov, [facility] [id number], [place] [address] Oct, Paranoid schizophrenia F20.0 [facility] [id number], [place] [address] Oct, Paranoid schizophrenia F20.0 ; Posttraumatic stress disorder F43.10 ; Attention deficit hyperactivity disorder (ADHD), inattentive type, 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 ; Borderline personality disorder F60.3 and Other neurosurgical physician assistant ( 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 Z79.899 [facility] [id number], [place] [address] Oct, [facility] [id number], [place] [address] 0[address] Oct, [facility] [id number], [place] [address] Sep, [facility] [id number], [place] [address]- [address] Sep, Paranoid schizophrenia F20.0 ; Posttraumatic stress disorder F43.10 ; Attention deficit hyperactivity disorder (ADHD), inattentive type, 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 and Borderline personality disorder F60.3 [facility] [id number], [place] [address] 89[address] Sep, Paranoid schizophrenia F20.0 [facility] [id number], [place] [address] Aug, Paranoid schizophrenia F20.0 ; Posttraumatic stress disorder F43.10 ; Attention deficit hyperactivity disorder (ADHD), inattentive type, 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 and Borderline personality disorder F60.3 [facility] [id number], [place] [address] Aug, Paranoid schizophrenia F20.0 ; Posttraumatic stress disorder F43.10 ; Attention deficit hyperactivity disorder (ADHD), inattentive type, 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 and Borderline personality disorder F60.3 [facility] [id number], [place] [address] Aug, [facility] [id number], [place] [address] Jul, Paranoid schizophrenia F20.0 ; Posttraumatic stress disorder F43.10 ; Attention deficit hyperactivity disorder (ADHD), inattentive type, 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 and Borderline personality disorder F60.3 [facility] [id number], [place] [address] Jul, Paranoid schizophrenia F20.0 [facility] [id number], [place] [address] Jul, Paranoid schizophrenia F20.0 ; Posttraumatic stress disorder F43.10 ; Attention deficit hyperactivity disorder (ADHD), inattentive type, 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 and Borderline personality disorder F60.3 [facility] [id number], [place] [address]- [address] Jun, Paranoid schizophrenia F20.0 ; Posttraumatic stress disorder F43.10 ; Attention deficit hyperactivity disorder (ADHD), inattentive type, 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 and Borderline personality disorder F60.3 [facility] [id number], [place] [address]- 100[address] May, Other penitentiary (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 Z79.899 [facility] [id number], [place] [address]- [address] May, [facility] [id number], [place] [address]- 6[address] May, [facility] [id number], [place] [address]- 9426 May, Attention deficit hyperactivity disorder (ADHD), inattentive type, 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 [facility] [id number], [place] [address]- 1683 May, [facility] [id number], [place] [address]- [address] May, Attention deficit hyperactivity disorder (ADHD), inattentive type, 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 [facility] [id number], [place] [address]- 4643 May, Paranoid schizophrenia F20.0 ; Posttraumatic stress disorder F43.10 ; Attention deficit hyperactivity disorder (ADHD), inattentive type, 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 and Other neurosurgical physician assistant (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 Z79.899 [facility] [id number] [place] [address]- [address]63 Apr, Paranoid schizophrenia F20.0 [facility] [id number], [place] [address]- 4[address] Apr, Paranoid schizophrenia F20.0 ; Posttraumatic stress disorder F43.10 and Attention deficit hyperactivity disorder (ADHD), inattentive type, 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 [facility] [id number], [place] [address]- [address] February, [facility] [id number], [place] [address]- [address] February, Paranoid schizophrenia F20.0 ; Posttraumatic stress disorder F43.10 and Attention deficit hyperactivity disorder (ADHD), inattentive type, 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 [facility] [id number], [place] [address]- [address] February, Paranoid schizophrenia F20.0 ; Posttraumatic stress disorder F43.10 and Attention deficit hyperactivity disorder (ADHD), inattentive type, 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 [facility] [id number], [place] [address]- 39[address] Jan, Paranoid schizophrenia F20.0 ; Posttraumatic stress disorder F43.10 and Attention deficit hyperactivity disorder (ADHD), inattentive type, 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 [facility] [address] [id number] [id number] Dec, Dental examination Z01.20 [facility] [address] [id number] [id number] Nov, Dental examination Z01.20 [facility] [id number] [id number] 23 Nov, 2016 Dental examination Z01.20 [facility] [id number] [place] [id number] 14 Nov, 2016 Dental caries K02.9 [facility] [id number] [place] [address]697- 3458 13 Nov, 2016 High risk medication use Z79.899 [facility] [id number] [place] [address]70- 5869 Nov, Paranoid schizophrenia F20.0 ; Posttraumatic stress disorder F43.10 ; Attention deficit hyperactivity disorder (ADHD), inattentive type, 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 and Borderline personality disorder in adult F60.3 [facility] [address] [place] [address] [id number] Oct, Dental caries K02.9 [facility] [id number] [place] [address] 69090- 8280 Sep, Paranoid schizophrenia F20.0 ; Posttraumatic stress disorder F43.10 and Attention deficit hyperactivity disorder (ADHD), inattentive type, 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 [facility] [id number] [place] [address] 95984- 9262 Aug, Paranoid schizophrenia F20.0 ; Posttraumatic stress disorder F43.10 and Attention deficit hyperactivity disorder (ADHD), inattentive type, 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 [facility] [id number], [place] [address] Aug, Strep throat J02.0 and Cough R05 [facility] [id number] [place] [address] 37819- 3884 Aug, [facility] [id number] [place] [address] 08065- 4247 24 Jul, 2016 Paranoid schizophrenia F20.0 ; Posttraumatic stress disorder F43.10 and Attention deficit hyperactivity disorder (ADHD), inattentive type, 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 [facility] [id number], [place] [address]- 0397 Jul, [facility] [id number] [place] [address]253- 7677 Jun, Paranoid schizophrenia F20.0 ; Posttraumatic stress disorder F43.10 and Attention deficit hyperactivity disorder (ADHD), inattentive type, 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 [facility] [id number] [id number] Jun, Dental examination Z01.20 [facility] [id number] [place] [address] 11434- 2254 Jun, [facility] [id number] [place] [address] 50361- 1903 May, Paranoid schizophrenia F20.0 [facility] [address], [place] [address]- 0932 May, Paranoid schizophrenia F20.0 ; Posttraumatic stress disorder F43.10 and Attention deficit hyperactivity disorder (ADHD), inattentive type, 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 [facility] [id number], [place] [address]- 3772 May, [facility] [id number], [place] [address]- 4533 May, Paranoid schizophrenia F20.0 [facility] [id number], [place] [address] May, [facility] [id number], [place] [address]- 3230 May, Paranoid schizophrenia F20.0 [facility] [id number] [place] [address] 14853- 2924 May, Schizoaffective disorder, unspecified F25.9 [facility] [id number], [place] [address]- 4719 May, Schizoaffective disorder, unspecified F25.9 [facility] [address] [facility] [id number], [place] [address]- [address] May, [facility] [address] [facility] [id number], [place] [address]- 8042 May, Paranoid schizophrenia F20.0 [facility] [id number] [address]- 7551 May, Paranoid schizophrenia F20.0 ; Posttraumatic stress disorder F43.10 and Attention deficit hyperactivity disorder (ADHD), inattentive type, 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 [facility] [address] [facility] [id number], [place] [address]- [address] Mar, [facility] [id number], [place] [address]- 9606 Mar, Paranoid schizophrenia F20.0 ; Posttraumatic stress disorder F43.10 and Attention deficit hyperactivity disorder (ADHD), inattentive type, 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 [facility] [id number], [place] [address]- 0707 Mar, Paranoid schizophrenia F20.0 [facility] [id number], [place] [address]- 7738 Mar, Paranoid schizophrenia F20.0 ; Attention deficit hyperactivity disorder (ADHD), inattentive type, 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 and Posttraumatic stress disorder F43.10 [facility] [id number], [place] [address]- 9651 Mar, [facility] [id number], [place] [address]- 9458 Mar, Paranoid schizophrenia F20.0 ; Posttraumatic stress disorder F43.10 and Attention deficit hyperactivity disorder (ADHD), inattentive type, 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 [facility] [address] [facility] [id number], [place] [address]- 3136 February, [facility] [id number], [place] [address]- 1587 February, [facility] [id number] [address] [address] February, [facility] [id number] [place] [address] 21544- 5244 February, [facility] [id number] [place] [address] 96782- 8573 Jan, Paranoid schizophrenia F20.0 [facility] [id number] [place] [address] [id number] Jan, Dental examination Z01.20 [facility] [id number] [place] [address] [id number] Jan, Dental caries K02.9 [facility] [id number] [place] [address] [id number] Jan, Dental examination Z01.20 [facility] [id number] [place] [address] [id number] Dec, Encounter for dental examination Z01.20 [facility] [id number] [place] [address] 50711- 9796 Dec, Paranoid schizophrenia F20.0 [facility] [id number] [place] [address] [id number] Dec, Dental examination Z01.20 [facility] [id number] [place] [address] 52940- 0969 Dec, [facility] [id number] [place] [address] 67554- 3233 Dec, Paranoid schizophrenia F20.0 ; Posttraumatic stress disorder F43.10 and Attention deficit hyperactivity disorder (ADHD), inattentive type, 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 [facility] [id number] [place] [address] 91808- 8827 Nov, Schizoaffective disorder, unspecified F25.9 [facility] [id number], [place] [address]- 0084 Oct, Paranoid schizophrenia F20.0 [place] [id number], [place] [address]- 4830 Oct, [facility] [id number] [place] [address] 89670- 2135 Sep, Paranoid schizophrenia F20.0 ; Posttraumatic stress disorder F43.10 and Attention deficit hyperactivity disorder (ADHD), inattentive type, 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 [facility] [id number] [place] [address] 36847- 8506 Sep, [facility] [id number] [place] [address] 47859- 9904 Sep, Paranoid schizophrenia F20.0 ; Posttraumatic stress disorder F43.10 and Attention deficit hyperactivity disorder (ADHD), inattentive type, 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 [facility] [address], [place] [address]- 1223 Aug, Paranoid schizophrenia F20.0 [facility] [id number], [place] [address]- 3037 Aug, [facility] [id number] [place] [address] 38051- 0676 Aug, Posttraumatic stress disorder F43.10 ; Paranoid schizophrenia F20.0 and Attention deficit hyperactivity disorder (ADHD), inattentive type, 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 [facility] [id number], [place] [address]- 6291 Jul, Bipolar disorder, unspecified F31.9 [facility] [id number], [place] [address]- 5955 Jul, [facility] [id number] [place] [address] 02193- 5329 Jun, [facility] [id number] [place] [address] 34744- 2776 Jun, Schizoaffective disorder, chronic 295.72 ; Posttraumatic stress disorder 309.81 and Attention deficit disorder 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 314.00 [facility] [id number], [place] [address]- 7609 May, [facility] [id number], [place] [address]- 1404 May, [facility] [id number], [place] [address]- 4748 May, Schizoaffective disorder, chronic 295.72 ; Posttraumatic stress disorder 309.81 ; Attention deficit disorder 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 314.00 and Bipolar disorder, unspecified 296.80 [facility] [id number], [place] [address] Apr, Schizoaffective disorder, chronic 295.72 [facility] [id number] [place] [address] Apr, [facility] [id number] [place] [address] Apr, Schizoaffective disorder, chronic 295.72 ; Posttraumatic stress disorder 309.81 and Attention deficit disorder 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 314.00 [facility] [id number], [place] [address] Mar, Disorganized schizophrenia, 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 [facility] [id number], [place] [address] Mar, [facility] [id number], [place] [address] Mar, [facility] [id number] [place] [address] Mar, [facility] [id number] [place] [address] Mar, [facility] [id number] [place] [address] February, Schizoaffective disorder, chronic 295.72 [facility] [id number] [place] [address] February, [facility] [id number] [address] February, Attention deficit disorder 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 314.00 ; Posttraumatic stress disorder 309.81 and Schizoaffective disorder, chronic 295.72 [facility] [id number], [place] [address] Jan[facility] [facility] [id number] [place] [address]- 4201 Jan, [facility] [id number], [place] [address] 7981 Jan, [facility] [id number] [place] [address] 897183- 6947 Dec, [facility] [address] [id number] [address] Dec, [facility] [address] [id number], [place] [address] 9839 Dec, [facility] [id number], [place] [address] 8256 Dec, [facility] [id number], [place] [address] 1706 Dec, [facility] [id number], [place] [address] 5202 Dec, [facility] [place] [facility] [id number], [place] [address] 7288 Dec, [facility] [id number] [address] Dec, [facility] [id number], [place] [address] 23[address] Nov, [facility] [place] [facility] [id number], [place] [address] 4726 Nov, [facility] [address] [id number] [place] [address]- 05[address] Nov, 2014 [facility] [place] [facility] [address] [id number] [place] [address]- 7936 Nov, 2014 [facility] [place] [facility] [address] [id number] [place] [address] 2546 Nov, 2014 [facility] [place] [facility] [address] [id number] [place] [address]- 6826 Nov, 2014 [facility] [place] [facility] [address] [id number] [place] [address]- 2543 Nov, 2014 [facility] [place] [facility] [address] [id number] [place] [address]- 9816 Nov, 2014 [facility] [place] [facility] [address] [facility] [id number] [place] [address]- 6507 Nov, [facility] [place] [facility] [address] [id number] [place] [address]- 2382 Nov, [facility] [place] [facility] [address] [id number] [place] [address]- 7570 Oct, [facility] [place] [facility] [address] [facility] [id number] [place] [address]- 1007 Oct, [facility] [place] [facility] [address] [facility] [id number] [place] [address]- 0271 Oct, [facility] [place] [facility] [address] [id number] [place] [address]- 2541 Oct, [facility] [place] [facility] [address] [id number] [place] [address]- 2541 Oct, [facility] [place] [facility] [address] [id number] [place] [address]- 2546 Oct, [facility] [place] [facility] [address] [facility] [id number] [place] [address]- 2546 Oct, [facility] [place] [facility] [address] [id number] [place] [address]- 1950 17 Sep, 2014 [facility] [place] [facility] [address] [id number] [place] [address]- 5850 17 Sep, 2014 [facility] [place] [facility] [address] [id number] [place] [address]- 8131 15 Sep, 2014 [facility] [place] [facility] [address] [id number] [place] [address]- 9376 15 Sep, 2014 [facility] [place] [facility] [address] [id number] [place] [address]- 5871 Aug, [facility] [place] [facility] [address] [id number] [place] [address]- 4174 Aug, [facility] [place] [facility] [address] [id number] [place] [address]- 5741 Aug, [facility] [place] [facility] [address] [id number] [place] [address]- 2940 Aug, [facility] [place] [facility] [address] [id number] [place] [address]- 7837 Aug, [facility] [place] [facility] [address] [id number] [place] [address]- 1465 Aug, [facility] [place] [facility] [address] [id number] [place] [address]- 1266 29 Jul, 2014 [facility] [place] [facility] [address] [id number], [place] [address]- 5416 29 Jul, 2014 [facility] [place] [facility] [address] [id number], [place] [address]- 0350 24 Jul, 2014 [facility] [place] [facility] [address] [id number] [place] [address]- 8645 24 Jul, 2014 [facility] [place] [facility] [address] [id number], [place] [address]- 9500 15 Jul, 2014 [facility] [place] [facility] [address] [id number], [place] [address]- 1550 15 Jul, 2014 [facility] [place] [facility] [address] [id number] [place] [address]- 2641 27 Sep, 2013 [facility] [place] [facility] [address] [id number] [place] [address] 2546 27 Sep, 2013 [facility] [place] [facility] [address] [id number] [place] [address] 2546 26 Jun, 2013 [facility] [place] [facility] [address] [id number] [place] [address] 2546 26 Jun, 2013 [facility] [place] [facility] [address] [id number] [place] [address] 2546 26 Jun, 2013 [facility] [place] [facility] [address] [id number] [place] [address]- 1939 26 Jun, 2013 [facility] [place] [facility] [address] [id number] [place] [address] 2546 16 Jun, 2013 [facility] [place] [facility] [address] [id number] [place] [address]- 2076 16 Jun, 2013 [facility] [place] [facility] [address] [id number] [place] [address] 254 16 Jun, 2013 [facility] [place] [facility] [address] [id number] [place] [address] 2548 16 Jun, 2013 [facility] [place] [facility] [address] [id number] [place] [address] 2541 04 Jun, 2013 [facility] [place] [facility] [address] [id number] [place] [address] 2547 May, [facility] [place] [facility] [address] [id number] [place] [address] 254 May, [facility] [place] [facility] [address] [id number] [place] [address]- 0499 May, [facility] [place] [facility] [address] [id number] [place] [address]- 2547 May, [facility] [place] [facility] [address] [id number] [place] [address]- 1587 May, [facility] [place] [facility] [address] [id number] [place] [address]- 2156 May, [facility] [place] [facility] [address] [id number] [place] [address]- 6206 May, [facility] [place] [facility] [address] [id number] [place] [address]- 2672 May, [facility] [place] [facility] [address] [id number] [place] [address]- 7377 May, [facility] [place] [facility] [address] [id number] [place] [address]- 6688 May, [facility] [place] [facility] [address] [id number] [place] [address]- 5031 Apr, [facility] [place] [facility] [address] [id number] [place] [address]- 1594 Apr, [facility] [place] [facility] [address] [id number] [place] [address]- 1861 Apr, [facility] [place] [facility] [address] [id number] [place] [address]- 6224 Apr, [facility] [place] [facility] [address] [id number] [place] [address]- 9666 Apr, [facility] [place] [facility] [address] [id number] [place] [address]- 0021 Apr, [facility] [place] [facility] [address] [id number] [place] [address]- 0612 Apr, [facility] [place] [facility] [address] [id number] [place] [address]- 0041 Apr, [facility] [place] [facility] [address] [id number] [place] [address]- 3521 Apr, [facility] [place] [facility] [address] [id number] [place] [address]- 2121 Apr, [facility] [place] [facility] [address] [id number] [place] [address]- 8079 Mar, [facility] [place] [facility] [address] [id number] [place] [address]- 7955 Mar, [facility] [place] [facility] [address] [id number] [place] [address]- 8961 Mar, [facility] [place] [facility] [address] [id number] [place] [address]- 2724 24 Mar, 2014 [facility] [place] [facility] [address] [id number] [place] [address]- 7429 20 Mar, 2014 [facility] [place] [facility] [address] [id number] [place] [address]- 3679 18 Mar, 2014 [facility] [place] [facility] [address] [id number] [place] [address]- 9927 18 Mar, 2014 [facility] [place] [facility] [address] [id number] [place] [address]- 9384 16 Mar, 2014 [facility] [place] [facility] [address] [id number] [place] [address]- 1860 16 Mar, 2014 [facility] [place] [facility] [address] [id number] [place] [address]- 3632 Mar, [facility] [place] [facility] [address] [id number] [place] [address]- 0946 Mar, [facility] [place] [facility] [address] [id number] [place] [address]- 4843 Mar, [facility] [place] [facility] [address] [id number] [place] [address]- 9240 Mar, [facility] [place] [facility] [address] [id number] [place] [address]- 4125 10 Mar, 2014 [facility] [place] [facility] [address] [id number] [place] [address]- 8529 09 Mar, 2014 [facility] [place] [facility] [address] [id number] [place] [address]- 8249 09 Mar, 2014 [facility] [place] [facility] [address] [id number] [place] [address]- 0875 Mar, [facility] [address] [id number] [place] [address]- 5988 Mar, [facility] [place] [facility] [address] [id number] [place] [address]- 9794 Mar, [facility] [address] [id number] [place] [address]- 9634 Mar, [facility] [place] [facility] [address] [id number] [place] [address]- 9270 February, [facility] [address] [id number] [place] [address]- 3713 February, [facility] [address] [id number] [place] [address]- 7759 February, [facility] [address] [id number] [place] [address]- 6146 February, [facility] [address] [id number] [place] [address]- 8608 February, [facility] [address] [id number] [place] [address]- 8555 February, [facility] [address] [id number] [place] [address]- 3399 February, [facility] [place] [facility] [address] [id number] [place] [address]- 0872 February, [facility] [address] [id number] [place] [address]- 3303 February, [facility] [place] [facility] [address] [id number] [place] [address]- 3584 February, [facility] [place] [facility] [address] [id number] [place] [address]- 9562 February, [facility] [place] [facility] [address] [id number] [place]- 2830 February, [facility] [place] [facility] [address] [id number] [place] [address]- 2483 February, [facility] [place] [facility] [address] [id number] [place] [address]- 8791 February, [facility] [place] [facility] [address] [id number] [place] [address]- 2497 February, [facility] [place] [facility] [address] [id number] [place] [address]- 5138 February, [facility] [place] [facility] [address] [id number] [place] [address]- 1222 February, [facility] [place] [facility] [address] [id number] [place] [address]- 2345 February, [facility] [place] [facility] [address] [id number] [place] [address]- 0100 February, [facility] [place] [facility] [address] [id number] [place] [address]- 9057 February, [facility] [place] [facility] [address] [id number] [place] [address]- 6379 February, [facility] [place] [facility] [address] [id number] [place] [address]- 6140 Jan, [facility] [place] [facility] [address] [id number] [place] [address]- 5830 Jan, [facility] [place] [facility] [address] [id number] [place] [address]- 8153 Jan, [facility] [place] [facility] [address] [id number] [place] [address]- 5278 Jan, [facility] [place] [facility] [address] [id number] [place] [address]- 9530 Jan, [facility] [place] [facility] [address] [id number] [place] [address]- 0026 Jan, [facility] [place] [facility] [address] [id number], [place] [address]- 3280 10 Jan, 2014 [facility] [place] [facility] [address] [id number] [place] [address]- 0878 10 Jan, 2014 [facility] [place] [facility] [address] [id number] [place] [address]- 9636 21 Dec, 2013 [facility] [place] [facility] [address] [facility] [id number] [place] [address]- 8151 20 Dec, 2013 [facility] [place] [facility] [address] [facility] [id number] [place] [address]- 8589 20 Dec, 2013 [facility] [place] [facility] [address] [id number] [place] [address]- 5312 19 Dec, 2013 [facility] [place] [facility] [address] [facility] [id number] [place] [address]- 0862 19 Dec, 2013 [facility] [place] [facility] [address] [facility] [id number] [place] [address]- 1239 15 Dec, 2013 [facility] [place] [facility] [address] [facility] [id number] [place] [address]- 9291 15 Dec, 2013 [facility] [place] [facility] [address] [facility] [id number] [place] [address]- 2887 11 Dec, 2013 [facility] [place] [facility] [address] [facility] [id number] [place] [address]- 2917 10 Dec, 2013 [facility] [place] [facility] [address] [facility] [id number] [place] [address]- 2183 10 Dec, 2013 [facility] [place] [facility] [address] [facility] [id number] [place] [address]- 4931 18 Nov, 2013 [facility] [place] [facility] [address] [id number] [place] [address]- 8728 17 Nov, 2013 [facility] [place] [facility] [address] [facility] [id number] [place] [address]- 3236 17 Nov, 2013 [facility] [place] [facility] [address] [facility] [id number] [place] [address]- 9689 05 Nov, 2013 [facility] [place] [facility] [address] [id number] [place] [address]- 9028 Nov, [facility] [place] [facility] [address] [id number] [place] [address]- 3961 Oct, [facility] [place] [facility] [address] [id number] [place] [address]- 2452 Oct, [facility] [place] [facility] [address] [id number] [place] [address]- 6593 Oct, [facility] [place] [facility] [address] [id number] [place] [address]- 2191 Sep, [facility] [place] [facility] [address] [id number] [place] [address]- 6158 Sep, [facility] [address] [id number] [place] 0567 Sep, [facility] [place] [facility] [address] [id number] [place] [address]- 3640 Sep, [facility] [place] [facility] [address] [id number] [place] [address]- 8888 Aug, [facility] [place] [facility] [address] [id number] [place] [address]- 9743 Aug, [facility] [place] [facility] [address] [id number] [place] [address]- 5936 Jul, [facility] [place] [facility] [address] [id number], [place] [address]- 8081 Jul, [facility] [place] [facility] [address] [id number] [place] [address]- 4841 Jul, [facility] [place] [facility] [address] [id number] [place] [address]- 4808 Jul, [facility] [place] [facility] [address] [id number] [place] [address]- 5471 Jul, [facility] [place] [facility] [address] [id number], [place] [address]- 7287 25 Jun, 2013 [facility] [place] [facility] [address] [id number] [place] [address]- 2511 25 Jun, 2013 [facility] [place] [facility] [address] [id number] [place] [address]- 8286 19 Jun, 2013 [facility] [place] [facility] [address] [id number] [place] [address]- 6046 18 Jun, 2013 [facility] [place] [facility] [address] [id number] [place] [address] 2542 16 Jun, 2013 [facility] [place] [facility] [address] [id number] [place] [address]- 9069 12 Jun, 2013 [facility] [place] [facility] [address] [id number] [place] [address]- 9686 11 Jun, 2013 [facility] [place] [facility] [address] [id number] [place] [address]- 7687 May, [facility] [place] [facility] [address] [id number] [place] [address]- 2350 May, [facility] [place] [facility] [address] [id number] [place] [address]- 6289 Apr, [facility] [place] [facility] [address] [id number] [place] [address]- 4743 Apr, [facility] [place] [facility] [address] [id number] [place] [address]- 6132 Apr, [facility] [place] [facility] [address] [id number] [place] [address]- 8581 Mar, [facility] [place] [facility] [address] [id number] [place] [address]- 6794 Mar, [facility] [place] [facility] [address] [id number] [place] [address]- 5734 February, [facility] [place] [facility] [address] [id number] [place] [address]- 9761 February, [facility] [place] [facility] [address] [id number] [place] [address]- 1866 February, [facility] [address] [id number] [place] [address]- 1753 February, [facility] [address] [id number] [place] [address]- 6435 Jan, [facility] [address] [id number] [place] [address]- 6633 Jan, [facility] [address] [id number] [place] [address]- 3532 Jan, [facility] [address] [id number] [place] [address]- 7621 29 Dec, 2012 [facility] [address] [id number] [place] [address]- 6944 Dec, [facility] [address] [id number] [place] [address]- 8729 Dec, [facility] [address] [id number] [place] [address]- 3199 Dec, [facility] [address] [id number] [place] [address]- 3765 Nov, [facility] [address] [id number] [place] [address]- 2216 Nov, [facility] [address] [id number] [place] [address]- 0423 Oct, [facility] [address] [id number] [place] [address]- 3741 Oct, [facility] [address] [id number] [place] [address]- 7368 Oct, [facility] [address] [id number] [place] [address]- 3086 Oct, [facility] [address] [id number] [place] [address]- 9245 Aug, [facility] [place] [facility] [address] [id number] [place] [address]- 4317 Aug, [facility] [place] [facility] [address] [id number] [place] [address]- 0694 Jun, [facility] [place] [facility] [address] [id number] [place] [address]- 1453 May, [facility] [place] [facility] [address] [id number] [place] [address] May, [facility] [place] [facility] [address] [id number] [place] [address] Apr, [facility] [place] [facility] [address] [id number] [place] [address] Apr, [facility] [place] [facility] [address] [id number] [place] [address] Apr, [facility] [place] [facility] [address] [id number] [place] [address] Mar, [facility] [place] [facility] [address] [id number] [place] [address] Mar, [facility] [place] [facility] [address] [id number] [place] [address] Mar, [facility] [place] [facility] [address] [id number] [place] [address] 1988 Mar, [facility] [place] [facility] [address] [id number], [place] [address] Mar, [facility] [place] [facility] [address] [id number] [place] [address] February, [facility] [place] [facility] [address] [id number] [place] [address] February, [facility] [place] [facility] [address] [id number] [place] [address] February, [facility] [place] [facility] [address] [id number] [place] [address] 16 Feb, 2012 [facility] [address] [id number] [place] [address] February, [facility] [place] [facility] [address] [id number] [place] [address] February, [facility] [address] [id number] [place] [address] February, [facility] [place] [facility] [address] [id number] [place] [address] 25 Jan, 2012 [facility] [address] [id number] [place] [address] 18 Jan, 2012 [facility] [place] [facility] [address] [id number] [place] [address]65 17 Jan, 2012 [facility] [address] [id number] [place] [address] 13 Jan, 2012 [facility] [address] [id number] [place] [address] 10 Jan, 2012 [facility] [place] [facility] [address] [id number] [place] [address]- [address] 04 Jan, 2012 [facility] [address] [id number] [place] [address]- [address] 30 Dec, 2011 [facility] [place] [facility] [address] [id number] [place] [address]- [address] 24 Dec, 2011 [facility] [place] [facility] [address] [id number] [place] [address] 9820 20 Dec, 2011 [facility] [place] [facility] [address] [id number] [place] [address] 13 Dec, 2011 [facility] [place] [facility] [address] [id number] [place] [address] 06 Dec, 2011 [facility] [place] [facility] [address] [id number] [place] [address] 28 Nov, 2011 [facility] [place] [facility] [address] [id number] [place] [address] Nov, [facility] [place] [facility] [address] [id number] [place] [address] Nov, [facility] [place] [facility] [address] [id number] [place] [address] Nov, [facility] [place] [facility] [address] [id number] [place] [address]- [address] Nov, [facility] [place] [facility] [address] [id number] [place] [address]- [address] Nov, [facility] [place] [facility] [address] [id number] [place] [address] Oct, [facility] [place] [facility] [address] [id number] [place] [address] Oct, [facility] [place] [facility] [address] [id number] [place] [address] Oct, [facility] [place] [facility] [address] [id number] [place] [address] Oct, [facility] [place] [facility] [address] [id number] [place] [address] Oct, [facility] [place] [facility] [address] [id number] [place] [address] Sep, [facility] [place] [facility] [address] [id number] [place] [address] Sep, [facility] [place] [facility] [address] [id number] [place] [address] 2546 Sep, [facility] [place] [facility] [address] [id number] [place] [address]- 25[address] Sep, [facility] [place] [facility] [address] [id number] [place] [address]- 4426 Sep, [facility] [place] [facility] [address] [id number] [place] [address]- [address]46 13 Sep, 2011 [facility] [place] [facility] [address] [id number] [place] [address]- [address] Sep, [facility] [place] [facility] [address] [id number] [place] [address]- [address]185 Sep, [facility] [place] [facility] [address] [id number] [place] [address]- 94[address] Sep, [facility] [place] [facility] [address] [id number] [place] [address]- 269[address] Aug, [facility] [place] [facility] [address] [id number] [place] [address]- [address] Aug, [facility] [place] [facility] [address] [id number] [place] [address]- 2419 Aug, [facility] [place] [facility] [address] [id number] [place] [address]- 99[address] Aug, [facility] [place] [facility] [address] [id number] [place] [address]- 8918 Aug, [facility] [place] [facility] [address] [id number] [place] [address]- 9478 Aug, [facility] [place] [facility] [address] [id number] [place] [address]- 3976 Aug, [facility] [place] [facility] [address] [id number] [place] [address]- 1556 Aug, [facility] [place] [facility] [address] [id number], [place] [address] Aug, [facility] [place] [facility] [address] [id number] [place] [address] Aug, [facility] [place] [facility] [address] [id number] [place] [address] Aug, [facility] [place] [facility] [address] [id number], [place] [address] Aug, [facility] [place] [facility] [address] [id number] [place] [address]- 67[address] Jul, [facility] [place] [facility] [address] [id number] [place] [address]- 39[address] Jul, [facility] [place] [facility] [address] [id number] [place] [address]- 37[address] Jul, [facility] [place] [facility] [address] [id number] [place] [address]- [address] Jul, [facility] [place] [facility] [address] [id number] [place] [address] Jul, [facility] [place] [facility] [address] [id number] [place] [address]- [address] Jul, [facility] [place] [facility] [address] [id number] [place] [address]- 9[address] Jul, [facility] [place] [facility] [address] [id number] [place] [address]- 7931 Jul, [facility] [place] [facility] [address] [id number] [place] [address]- 1009 Jul, [facility] [place] [facility] [address] [id number] [place] [address]- 6[address] Jul, [facility] [place] [facility] [address] [id number] [place] [address]- 134[address] Nov, [facility] [place] [facility] [address] [id number] [place] [id number] Aug, [facility] [place] [facility] [address] [id number] [place] [address] Aug, [facility] [place] [facility] [address] [id number] [place] [address] Aug, [facility] [place] [facility] [address] [id number] [place] [address] Aug, [facility] [place] [facility] [address] [id number] [place] [address] Jul, IMMUNIZATIONS No Known Immunizations SOCIAL HISTORY Never Assessed REASON FOR VISIT f/u-Raul AMES PLAN OF CARE Activity Details Follow Up 4 Weeks Reason: f/u VITAL SIGNS Height 65.75 in 2018-05-02 Weight 184.7 lbs 2018-05-02 Heart Rate 118 bpm 2018-05-02 Respiratory Rate 18 2018-05-02 BMI 30.04 kg/m2 2018-05-02 Blood pressure systolic 126 mmHg 2018-05-02 Blood pressure diastolic 88 mmHg 2018-05-02 MEDICATIONS Medication Instructions Dosage Frequency Start Date End Date Duration Status Intuniv 1 MG Orally 2 times a day 1 tablet 12h Active Trintellix 20 mg orally Once a day 1 tablet 24h Active Trileptal 600 MG Orally Twice a day 1 tablet 12h 30 days Active Ativan 1 MG Orally 2 times a day as needed 1 tablet Active Hydrocodone-Acetaminophen 10-325 mg 1 Tablet by Oral route every 8 hours PRN pain Jul, Active NovoLog Mix 70/30 (70-30) 100 UNIT/ML Subcutaneous 3 times a day 27 units 8h Active Nitrofurantoin Monohyd Macro 100 MG Orally every 12 hrs 1 capsule with food 12h Not-Taking Levothyroxine Sodium 75 MCG Orally Once a day 1 tablet on an empty stomach in the morning 24h Active Ventolin HFA 90 MCG/ACT Inhalation every 6 hrs 2 puffs as needed 6h Active Topamax 100 mg Orally Twice a day 1.5 tablet 12h Active Cyproheptadine HCl 4 MG Orally Twice a day 1 tablet 12h 30 days Active Abilify 30 MG Orally Once a day 1 tablet 24h Active Seroquel 300 MG Orally Once a day at bedtime for sleep 1 tablet Active Levemir 100 UNIT/ML Subcutaneous at bedtime 70 units Active Metformin HCl 1000 MG Orally 2 times a day 1 tablet 12h Not-Taking RESULTS No Results PROCEDURES No Known procedures INSTRUCTIONS MEDICATIONS ADMINISTERED No Known Medications MEDICAL (GENERAL) HISTORY Type Description Date Medical History diabetes Medical History thyroid Surgical History appendix Surgical History gallbladder Surgical History eyes Surgical History hip Surgical History MRI on back and pelvis 06/08 Hospitalization History surgeries Hospitalization History [facility] Suicide attempt by hanging 06/14/2016 Hospitalization History [facility] 01/30/2018-02/10/2008 Hospitalization History [facility] 05/04/18-05/09/18
--- OUTSIDE RECORDS SUMMARY | 2018-08-15 20:16 | XMS REPORT ---
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 57423190 Problem Schizoaffective disorder, depressive type F25.1 Active 02567805 Problem Borderline personality disorder F60.3 Active 09780895 Problem Attention deficit hyperactivity disorder (ADHD), inattentive type, 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 84722474 Problem Schizoaffective disorder, unspecified F25.9 Active 04077988 Problem High risk medication use Z79.899 Active 011672413 Problem Posttraumatic stress disorder F43.10 Active 24868762 Problem Obsessive-compulsive disorders 300.3 Active 478116947 Problem Generalized anxiety disorder 300.02 Active 37106736 Problem Attention deficit disorder 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 314.00 Active 48769164 Problem Bipolar disorder, unspecified 296.80 Active 60876584 Problem Posttraumatic stress disorder 309.81 Active 49084563 Problem Paranoid schizophrenia, unspecified condition 295.30 Active [id number] ALLERGIES No Information ENCOUNTERS Encounter Location Date Diagnosis [facility] [address] [facility] [id number], [place] [address] Jul, [facility] [address] [id number], [place] [address] May, Paranoid schizophrenia F20.0 ; Posttraumatic stress disorder F43.10 ; Attention deficit hyperactivity disorder (ADHD), inattentive type, 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 and Borderline personality disorder F60.3 [facility] [address] [id number], [place] [address] May, [facility] [address] [facility] [id number], [place] [address] May, Paranoid schizophrenia F20.0 [facility] [address] [id number] [address] [address] May, Paranoid schizophrenia F20.0 ; Posttraumatic stress disorder F43.10 ; Attention deficit hyperactivity disorder (ADHD), inattentive type, 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 and Borderline personality disorder F60.3 [facility] [address] [facility] [id number], [place] [address] Apr, [facility] [address] [id number], [place] [address] Apr, Paranoid schizophrenia F20.0 ; Posttraumatic stress disorder F43.10 ; Attention deficit hyperactivity disorder (ADHD), inattentive type, 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 and Borderline personality disorder F60.3 [facility] [address] [id number], [place] [address] Apr, [facility] [address] [id number], [place] [address] Apr, Schizoaffective disorder, depressive type F25.1 and Borderline personality disorder F60.3 [facility] [address] [id number], [place] [address] Apr, Paranoid schizophrenia F20.0 ; Posttraumatic stress disorder F43.10 ; Attention deficit hyperactivity disorder (ADHD), inattentive type, 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 and Borderline personality disorder F60.3 [facility] [address] [facility] [id number], [place] [address] Apr, [facility] [address] [id number], [place] [address] Apr, Paranoid schizophrenia F20.0 ; Posttraumatic stress disorder F43.10 ; Attention deficit hyperactivity disorder (ADHD), inattentive type, 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 and Borderline personality disorder F60.3 [facility] [address], [place] [address] Apr, [facility] [address], [place] [address] Mar, Paranoid schizophrenia F20.0 [facility] [address], [place] [address] Mar, [facility] [id number] [place] [address] 1408 Mar, Paranoid schizophrenia F20.0 ; Posttraumatic stress disorder F43.10 ; Attention deficit hyperactivity disorder (ADHD), inattentive type, 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 and Borderline personality disorder F60.3 [facility] [address], [place] [address] February, Paranoid schizophrenia F20.0 [facility] [address], [place] [address] February, Paranoid schizophrenia F20.0 ; Posttraumatic stress disorder F43.10 ; Attention deficit hyperactivity disorder (ADHD), inattentive type, 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 and Borderline personality disorder F60.3 [facility] [address], [place] [address] February, Paranoid schizophrenia F20.0 ; Posttraumatic stress disorder F43.10 ; Attention deficit hyperactivity disorder (ADHD), inattentive type, 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 and Borderline personality disorder F60.3 [facility] [address], [place] [address] February, [facility] [address], [place] [address] February, Paranoid schizophrenia F20.0 [facility] [address], [place] [address] 5[address] February, Paranoid schizophrenia F20.0 [facility] [address], [place] [address] 5[address] February, Paranoid schizophrenia F20.0 ; Posttraumatic stress disorder F43.10 ; Attention deficit hyperactivity disorder (ADHD), inattentive type, 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 and Borderline personality disorder F60.3 [facility] [address], [place] [address] Jan, Paranoid schizophrenia F20.0 ; Posttraumatic stress disorder F43.10 ; Attention deficit hyperactivity disorder (ADHD), inattentive type, 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 and Borderline personality disorder F60.3 [facility] [address], [place] [address] Jan, Paranoid schizophrenia F20.0 [facility] [id number] [place] [address]- 0573 Jan, Paranoid schizophrenia F20.0 [facility] [address], [place] [address] 6[address] Jan, Paranoid schizophrenia F20.0 ; Posttraumatic stress disorder F43.10 ; Attention deficit hyperactivity disorder (ADHD), inattentive type, 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 and Borderline personality disorder F60.3 [facility] [address], [place] [address]- [address] Dec, [facility] [id number], [place] [address] Nov, Paranoid schizophrenia F20.0 ; Posttraumatic stress disorder F43.10 ; Attention deficit hyperactivity disorder (ADHD), inattentive type, 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 and Borderline personality disorder F60.3 [facility] [address], [place] [address] Nov, [facility] [id number], [place] [address] Oct, Paranoid schizophrenia F20.0 [facility] [id number], [place] [address] 89[address] Oct, Paranoid schizophrenia F20.0 ; Posttraumatic stress disorder F43.10 ; Attention deficit hyperactivity disorder (ADHD), inattentive type, 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 ; Borderline personality disorder F60.3 and Other half-way ( 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 Z79.899 [facility] [address], [place] [address] Oct, [facility] [address], [place] [address]- [address] Oct, [facility] [address], [place] [address]- [address] Sep, [facility] [address], [place] [address] 9[address] Sep, Paranoid schizophrenia F20.0 ; Posttraumatic stress disorder F43.10 ; Attention deficit hyperactivity disorder (ADHD), inattentive type, 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 and Borderline personality disorder F60.3 [facility] [address], [place] [address] Sep, Paranoid schizophrenia F20.0 [facility] [address], [place] [address]- 6[address] Aug, Paranoid schizophrenia F20.0 ; Posttraumatic stress disorder F43.10 ; Attention deficit hyperactivity disorder (ADHD), inattentive type, 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 and Borderline personality disorder F60.3 [facility] [address], [place] [address] Aug, Paranoid schizophrenia F20.0 ; Posttraumatic stress disorder F43.10 ; Attention deficit hyperactivity disorder (ADHD), inattentive type, 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 and Borderline personality disorder F60.3 [facility] [address], [place] [address]- [address] Aug, [facility] [address], [place] [address] 79[address] Jul, Paranoid schizophrenia F20.0 ; Posttraumatic stress disorder F43.10 ; Attention deficit hyperactivity disorder (ADHD), inattentive type, 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 and Borderline personality disorder F60.3 [facility] [address], [place] [address]- 0[address] Jul, Paranoid schizophrenia F20.0 [facility] [address], [place] [address] 66[address] Jul, Paranoid schizophrenia F20.0 ; Posttraumatic stress disorder F43.10 ; Attention deficit hyperactivity disorder (ADHD), inattentive type, 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 and Borderline personality disorder F60.3 [facility] [address], [place] [address]- [address] Jun, Paranoid schizophrenia F20.0 ; Posttraumatic stress disorder F43.10 ; Attention deficit hyperactivity disorder (ADHD), inattentive type, 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 and Borderline personality disorder F60.3 [facility] [address], [place] [address]- 37[address] May, Other terminal manager (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 Z79.899 [facility] [address], [place] [address]- [address] May, [facility] [address], [place] [address]- 7843 May, [facility] [address], [place] [address]- 5[address] May, Attention deficit hyperactivity disorder (ADHD), inattentive type, 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 [facility] [address], [place] [address]- 69[address] May, [facility] [address], [place] [address]- 4687 May, Attention deficit hyperactivity disorder (ADHD), inattentive type, 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 [facility] [address], [place] [address]- 1815 May, Paranoid schizophrenia F20.0 ; Posttraumatic stress disorder F43.10 ; Attention deficit hyperactivity disorder (ADHD), inattentive type, 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 and Other terminal manager (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 Z79.899 [facility] [address] [id number], [place] [address]- 0703 Apr, Paranoid schizophrenia F20.0 [facility] [address], [place] [address]- 8270 Apr, Paranoid schizophrenia F20.0 ; Posttraumatic stress disorder F43.10 and Attention deficit hyperactivity disorder (ADHD), inattentive type, 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 [facility] [address], [place] [address]- 2510 February, [facility] [address], [place] [address]- 6420 February, Paranoid schizophrenia F20.0 ; Posttraumatic stress disorder F43.10 and Attention deficit hyperactivity disorder (ADHD), inattentive type, 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 [facility] [address], [place] [address]- 12[address] February, Paranoid schizophrenia F20.0 ; Posttraumatic stress disorder F43.10 and Attention deficit hyperactivity disorder (ADHD), inattentive type, 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 [facility] [address], [place] [address]- 8179 Jan, Paranoid schizophrenia F20.0 ; Posttraumatic stress disorder F43.10 and Attention deficit hyperactivity disorder (ADHD), inattentive type, 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 [facility] [address] [address] Dec, Dental examination Z01.20 [facility] [address] [id number] [id number] Nov, Dental examination Z01.20 [facility] [address] [id number] [id number] Nov, Dental examination Z01.20 [facility] [address] [address] Nov, Dental caries K02.9 [facility] [address], [place] [address]- 5834 Nov, High risk medication use Z79.899 [facility] [address], [place] [address]- 6445 Nov, Paranoid schizophrenia F20.0 ; Posttraumatic stress disorder F43.10 ; Attention deficit hyperactivity disorder (ADHD), inattentive type, 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 and Borderline personality disorder in adult F60.3 [facility] [address] [place] [id number] Oct, Dental caries K02.9 [facility] [id number] [place] [address]14[address]- 3926 Sep, Paranoid schizophrenia F20.0 ; Posttraumatic stress disorder F43.10 and Attention deficit hyperactivity disorder (ADHD), inattentive type, 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 [facility] [address], [place] [address]- 0648 Aug, Paranoid schizophrenia F20.0 ; Posttraumatic stress disorder F43.10 and Attention deficit hyperactivity disorder (ADHD), inattentive type, 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 [facility] [id number], [place] [address] Aug, Strep throat J02.0 and Cough R05 [facility] [id number] [place] [address]91- 5032 Aug, [facility] [id number] [place] [address] 68621- 8982 24 Jul, 2016 Paranoid schizophrenia F20.0 ; Posttraumatic stress disorder F43.10 and Attention deficit hyperactivity disorder (ADHD), inattentive type, 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 [facility] [address] [facility] [id number], [place] [address]- [address]60 Jul, [facility] [id number] [place] [address]57- 1540 Jun, Paranoid schizophrenia F20.0 ; Posttraumatic stress disorder F43.10 and Attention deficit hyperactivity disorder (ADHD), inattentive type, 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 [facility] [address] [address] Jun, Dental examination Z01.20 [facility] [id number] [place] [address] 967[address]- 9256 Jun, [facility] [id number] [place] [address] 72495- 0504 May, Paranoid schizophrenia F20.0 [facility] [id number] [place] [address] 12200- 4660 May, Paranoid schizophrenia F20.0 ; Posttraumatic stress disorder F43.10 and Attention deficit hyperactivity disorder (ADHD), inattentive type, 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 [facility] [address] [place] [address] 84500- 6260 May, [facility] [id number] [place] [address] 91813- 6078 May, Paranoid schizophrenia F20.0 [facility] [id number] [place] [address] 22870- 7054 May, [facility] [id number] [place] [address] 65518- 6563 May, Paranoid schizophrenia F20.0 [facility] [id number] [place] [address] 67012- 7697 May, Schizoaffective disorder, unspecified F25.9 [facility] [address], [place] [address] May, Schizoaffective disorder, unspecified F25.9 [facility] [id number], [place] [address]- 6430 May, [facility] [id number] [place] [address] 13491- 7301 May, Paranoid schizophrenia F20.0 [facility] [id number], [place] [address]- 6054 May, Paranoid schizophrenia F20.0 ; Posttraumatic stress disorder F43.10 and Attention deficit hyperactivity disorder (ADHD), inattentive type, 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 [facility] [address] [id number] [place] [address]- [address] Mar, [facility] [address] [facility] [id number] [place] [address]- 2441 Mar, Paranoid schizophrenia F20.0 ; Posttraumatic stress disorder F43.10 and Attention deficit hyperactivity disorder (ADHD), inattentive type, 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 [facility] [address] [facility] [id number] [place] [address]- 0435 Mar, Paranoid schizophrenia F20.0 [facility] [address] [facility] [id number] [place] [address]- 3675 Mar, Paranoid schizophrenia F20.0 ; Attention deficit hyperactivity disorder (ADHD), inattentive type, 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 and Posttraumatic stress disorder F43.10 [facility] [address] [facility] [id number] [place] [address]- 7617 Mar, [facility] [address] [facility] [id number] [place] [address]- 2502 Mar, Paranoid schizophrenia F20.0 ; Posttraumatic stress disorder F43.10 and Attention deficit hyperactivity disorder (ADHD), inattentive type, 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 [facility] [address] [id number] [place] [address]- 8511 February, [facility] [address] [facility] [id number] [place] [address]- 7142 February, [facility] [address] [facility] [id number] [place] [address]- 9687 February, [facility] [address] [facility] [id number] [place] [address] [address] February, [facility] [address] [facility] [id number] [place] [address]- 1689 Jan, Paranoid schizophrenia F20.0 [facility] [address] [id number] [id number] Jan, Dental examination Z01.20 [facility] [address] [id number][place] [address] Jan, Dental caries K02.9 [facility] [address] [id number][place] [address] Jan, Dental examination Z01.20 [facility] [address] [id number][place] [id number] Dec, Encounter for dental examination Z01.20 [facility] [address] [facility] [id number], [place] [address]- 6344 Dec, Paranoid schizophrenia F20.0 [facility] [address] [id number][place] [address] Dec, Dental examination Z01.20 [facility] [address], [place] [address]- 4780 Dec, [facility] [id number] [place] [address] 52821- 1733 Dec, Paranoid schizophrenia F20.0 ; Posttraumatic stress disorder F43.10 and Attention deficit hyperactivity disorder (ADHD), inattentive type, 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 [facility] [address], [place] [address]- 2432 Nov, Schizoaffective disorder, unspecified F25.9 [facility] [address], [place] [address]- 2299 Oct, Paranoid schizophrenia F20.0 [facility] [id number], [place] [address]- 5322 Oct, [facility] [id number], [place] [address]- 6635 Sep, Paranoid schizophrenia F20.0 ; Posttraumatic stress disorder F43.10 and Attention deficit hyperactivity disorder (ADHD), inattentive type, 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 [facility] [address] [id number], [place] [address]- 7509 Sep, [facility] [address] [place] [address] 34674- 7381 Sep, Paranoid schizophrenia F20.0 ; Posttraumatic stress disorder F43.10 and Attention deficit hyperactivity disorder (ADHD), inattentive type, 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 [facility] [id number] [place] [address] 89836- 5727 Aug, Paranoid schizophrenia F20.0 [facility] [id number] [place] [address] 40084- 7847 Aug, [facility] [id number] [place] [address] 69390- 7877 Aug, Posttraumatic stress disorder F43.10 ; Paranoid schizophrenia F20.0 and Attention deficit hyperactivity disorder (ADHD), inattentive type, 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 [facility] [id number] [place] [address] 71168- 3165 Jul, Bipolar disorder, unspecified F31.9 [facility] [address], [place] [address]- 7301 Jul, [facility] [id number] [place] [address] 51507- 8651 Jun, [facility] [address], [place] [address]- 2760 Jun, Schizoaffective disorder, chronic 295.72 ; Posttraumatic stress disorder 309.81 and Attention deficit disorder 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 314.00 [facility] [address], [place] [address]- 5672 May, [facility] [id number] [place] [address] 25628- 3156 May, [facility] [address], [place] [address]- 9299 May, Schizoaffective disorder, chronic 295.72 ; Posttraumatic stress disorder 309.81 ; Attention deficit disorder 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 314.00 and Bipolar disorder, unspecified 296.80 [facility] [address], [place] [address]- 5556 Apr, Schizoaffective disorder, chronic 295.72 [facility] [address], [place] [address]- 1814 Apr, [facility] [id number] [place] [address] 91734- 6771 Apr, Schizoaffective disorder, chronic 295.72 ; Posttraumatic stress disorder 309.81 and Attention deficit disorder 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 314.00 [facility] [address], [place] [address]- 1868 Mar, Disorganized schizophrenia, 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 [facility] [address], [place] [address]- 6949 Mar, [facility] [id number] [place] [address] 77574- 6229 Mar, [facility] [address], [place] [address]- 8434 Mar, [facility] [address], [place] [address]- 0299 Mar, [facility] [address], [place] [address]- 8724 February, Schizoaffective disorder, chronic 295.72 [facility] [address], [place] [address]- 2405 February, [facility] [address], [place] [address]- 1115 February, Attention deficit disorder 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 314.00 ; Posttraumatic stress disorder 309.81 and Schizoaffective disorder, chronic 295.72 [facility] [address], [place] [address]- 8745 Jan, [facility] [place] [facility] [address] [id number] [place] [address]- 6043 14 Jan, 2015 [facility] [place] [facility] [address] [id number] [place] [address]- 1441 Jan, [facility] [place] [facility] [address] [id number] [place] [address]- 4494 Dec, [facility] [place] [facility] [address] [id number] [place] [address]- 7639 Dec, [facility] [place] [facility] [address] [id number] [place] [address]- 1086 Dec, [facility] [place] [facility] [address] [id number] [place] [address]- 7202 Dec, [facility] [place] [facility] [address] [facility] [id number] [place] [address]- 1167 Dec, [facility] [place] [facility] [address] [id number] [place] [address]- 1918 Dec, [facility] [place] [facility] [address] [id number] [place] [address] Dec, [facility] [place] [facility] [address] [id number] [place] [address] Dec, [facility] [place] [facility] [address] [id number] [place] [address] 9[address] Nov, [facility] [place] [facility] [address] [id number] [place] [address] 6920 Nov, [facility] [place] [facility] [address] [id number] [place] [address] 3666 Nov, [facility] [place] [facility] [address] [id number] [place] [address] 5783 Nov, [facility] [place] [facility] [address] [id number] [place] [address] 8308 Nov, [facility] [place] [facility] [address] [id number] [place] [address] 8251 Nov, [facility] [place] [facility] [address] [id number] [place] [address] 5529 Nov, [facility] [place] [facility] [address] [id number] [place] [address] Nov, [facility] [place] [facility] [address] [id number] [place] [address] 5396 Nov, [facility] [place] [facility] [address] [id number] [place] [address] 6695 Nov, [facility] [place] [facility] [address] [id number] [place] [address] 2348 Oct, [facility] [place] [facility] [address] [id number] [place] [address] 8898 Oct, [facility] [place] [facility] [address] [id number] [place] [address] 9838 Oct, [facility] [place] [facility] [address] [id number] [place] [address] 3802 Oct, [facility] [place] [facility] [address] [id number] [place] [address] 8921 Oct, [facility] [place] [facility] [address] [facility] [id number] [place] [address]- 5121 Oct, [facility] [place] [facility] [address] [id number] [place] [address]- 5436 Oct, [facility] [place] [facility] [address] [id number] [place] [address] 2256 Sep, [facility] [place] [facility] [address] [id number] [place] [address] 3425 Sep, [facility] [place] [facility] [address] [id number] [place] [address]- 3578 Sep, [facility] [place] [facility] [address] [id number] [place] [address]- 8306 Sep, [facility] [place] [facility] [address] [id number] [place] [address]- 2502 Aug, [facility] [place] [facility] [address] [id number] [place] [address] 2070 Aug, [facility] [place] [facility] [address] [id number] [place] [address]- 5969 Aug, [facility] [place] [facility] [address] [id number] [place] [address]- 2545 Aug, [facility] [place] [facility] [address] [id number] [place] [address]- 2929 Aug, [facility] [place] [facility] [address] [id number] [place] [address] 0673 Aug, [facility] [place] [facility] [address] [id number] [place] [address] 4830 Jul, [facility] [place] [facility] [address] [id number] [place] [address]- 3041 Jul, [facility] [place] [facility] [address] [id number] [place] [address]- 7648 Jul, [facility] [place] [facility] [address] [id number] [place] [address]- 4006 Jul, [facility] [place] [facility] [address] [id number] [place] [address]- 3070 Jul, [facility] [place] [facility] [address] [id number] [place] [address]- 9490 Jul, [facility] [place] [facility] [address] [id number] [place] [address]- 5815 Jun, [facility] [place] [facility] [address] [id number] [place] [address] 8113 27 Jun, 2014 [facility] [place] [facility] [address] [id number] [place] [address]- 3661 26 Jun, 2014 [facility] [place] [facility] [address] [id number] [place] [address] 8166 Jun, 2013 [facility] [place] [facility] [address] [id number] [place] [address]- 0546 Jun, 2013 [facility] [place] [facility] [address] [id number] [place] [address]- 8076 Jun, [facility] [place] [facility] [address] [id number] [place] [address] 2546 Jun, 2013 [facility] [place] [facility] [address] [id number] [place] [address] 2546 Jun, 2013 [facility] [place] [facility] [address] [id number] [place] [address]- 7514 Jun, 2013 [facility] [place] [facility] [address] [id number] [place] [address]- 8884 Jun, [facility] [place] [facility] [address] [id number] [place] [address]- 6838 Jun, [facility] [place] [facility] [address] [id number] [place] [address]- 9550 May, [facility] [place] [facility] [address] [id number] [place] [address]- 1004 May, [facility] [place] [facility] [address] [id number] [place] [address]- 7201 May, [facility] [place] [facility] [address] [id number] [place] [address]- 6230 May, [facility] [place] [facility] [address] [id number] [place] [address]- 7358 May, [facility] [place] [facility] [address] [id number] [place] [address]- 4414 May, [facility] [place] [facility] [address] [id number] [place] [address]- 7225 May, [facility] [place] [facility] [address] [id number] [place] [address]- 8168 May, [facility] [place] [facility] [address] [id number] [place] [address]- 1018 May, [facility] [place] [facility] [address] [id number] [place] [address]- 0361 May, [facility] [place] [facility] [address] [id number] [place] [address]- 8597 Apr, [facility] [place] [facility] [address] [id number] [place] [address]- 8875 Apr, [facility] [place] [facility] [address] [id number] [place] [address]- 2486 Apr, [facility] [place] [facility] [address] [id number] [place] [address]- 2373 Apr, [facility] [place] [facility] [address] [id number] [place] [address]- 4866 Apr, [facility] [place] [facility] [address] [id number] [place] [address]- 2400 Apr, [facility] [place] [facility] [address] [id number] [place] [address]- 6776 Apr, [facility] [place] [facility] [address] [id number] [place] [address]- 3054 Apr, [facility] [place] [facility] [address] [id number] [place] [address]- 6305 Apr, [facility] [place] [facility] [address] [id number] [place] [address]- 6964 Apr, [facility] [place] [facility] [address] [id number] [place] [address]- 2133 Mar, [facility] [place] [facility] [address] [id number] [place] [address] Mar, [facility] [place] [facility] [address] [id number] [place] [address]- 4786 Mar, [facility] [place] [facility] [address] [id number] [place] [address]- 4897 Mar, [facility] [place] [facility] [address] [id number] [place] [address]- 5908 Mar, [facility] [place] [facility] [address] [id number] [place] [address] 1931 Mar, [facility] [place] [facility] [address] [id number] [place] [address]- 2626 Mar, [facility] [place] [facility] [address] [id number] [place] [address]- 9885 Mar, [facility] [place] [facility] [address] [id number] [place] [address]- 7194 Mar, [facility] [place] [facility] [address] [id number] [place] [address]- 4077 Mar, [facility] [place] [facility] [address] [id number] [place] [address]- 8671 Mar, [facility] [place] [facility] [address] [id number] [place] [address]- 0893 Mar, [facility] [place] [facility] [address] [id number] [place] [address]- 1004 Mar, [facility] [place] [facility] [address] [id number], [place] [address]- 7425 Mar, [facility] [place] [facility] [address] [id number], [place] [address]- 0772 Mar, [facility] [place] [facility] [address] [id number], [place] [address]- 4472 Mar, [facility] [place] [facility] [address] [id number], [place] [address]- 0299 Mar, [facility] [place] [facility] [address] [id number], [place] [address]- 2346 Mar, [facility] [place] [facility] [address] [id number], [place] [address]- 9[address] 04 Mar, 2014 [facility] [place] [facility] [address] [id number], [place] [address]- 5099 Mar, [facility] [address] [id number] [place] [address]- 2636 February, [facility] [place] [facility] [address] [id number] [place] [address]- 9590 February, [facility] [address] [id number] [place] [address]- 4124 February, [facility] [place] [facility] [address] [id number] [place] [address]- 3699 February, [facility] [address] [id number] [place] [address]- 3508 February, [facility] [address] [id number] [place] [address]- 0985 February, [facility] [address] [id number] [place] [address]- 2424 February, [facility] [address] [id number] [place] [address]- 0918 February, [facility] [address] [id number] [place] [address]- 1623 February, [facility] [address] [id number] [place] [address]- 1308 February, [facility] [address] [id number] [place] [address]- 7379 February, [facility] [place] [facility] [address] [id number] [place] [address]- 7363 February, [facility] [place] [facility] [address] [id number] [place] [address]- 9951 February, [facility] [place] [facility] [address] [id number] [place] [address]- 8480 February, [facility] [place] [facility] [address] [id number] [place] [address]- 0083 February, [facility] [place] [facility] [address] [id number] [place] [address]- 1295 February, [facility] [place] [facility] [address] [id number] [place] [address]- 1530 February, [facility] [place] [facility] [address] [id number] [place] [address]- 2435 February, [facility] [place] [facility] [address] [id number] [place] [address]- 2082 February, [facility] [place] [facility] [address] [id number] [place] [address]- 9501 February, [facility] [place] [facility] [address] [id number] [place] [address]- 2799 February, [facility] [place] [facility] [address] [id number] [place] [address]- 6542 Jan, [facility] [place] [facility] [address] [id number] [place] [address]- 5371 Jan, [facility] [place] [facility] [address] [id number] [place] [address]- 8794 Jan, [facility] [place] [facility] [address] [id number] [place] [address]- 8201 Jan, [facility] [place] [facility] [address] [id number] [place] [address]- 2546 Jan, [facility] [place] [facility] [address] [id number] [place] [address]- 0565 Jan, [facility] [place] [facility] [address] [id number] [place] [address]- 4951 Jan, [facility] [place] [facility] [address] [id number] [place] [address]- 4788 Jan, [facility] [place] [facility] [address] [id number] [place] [address]- 5302 Dec, [facility] [place] [facility] [address] [id number] [place] [address]- 6733 20 Dec, 2013 [facility] [place] [facility] [address] [id number] [place] [address]- 5286 20 Dec, 2013 [facility] [place] [facility] [address] [id number] [place] [address]- 3689 19 Dec, 2013 [facility] [place] [facility] [address] [id number] [place] [address]- 2226 19 Dec, 2013 [facility] [place] [facility] [address] [id number] [place] [address]- 3670 15 Dec, 2013 [facility] [place] [facility] [address] [id number] [place] [address]- 9345 15 Dec, 2013 [facility] [place] [facility] [address] [id number] [place] [address]- 9865 11 Dec, 2013 [facility] [place] [facility] [address] [id number] [place] [address]- 8637 10 Dec, 2013 [facility] [place] [facility] [address] [id number] [place] [address]- 9925 10 Dec, 2013 [facility] [place] [facility] [address] [id number] [place] [address]- 5989 18 Nov, 2013 [facility] [place] [facility] [address] [id number] [place] [address]- 5777 17 Nov, 2013 [facility] [place] [facility] [address] [id number] [place] [address]- 6129 Nov, [facility] [place] [facility] [address] [id number] [place] [address]- 6137 Nov, [facility] [place] [facility] [address] [id number] [place] [address]- 0525 Nov, [facility] [place] [facility] [address] [id number] [place] [address]- 4480 Oct, [facility] [place] [facility] [address] [id number] [place] [address]- 9066 Oct, [facility] [place] [facility] [address] [id number] [place] [address]- 3579 Oct, [facility] [address] [id number] [place] [address]- 2103 Sep, [facility] [place] [facility] [address] [id number] [place] [address]- 2318 Sep, [facility] [address] [id number] [place] [address]- 8627 Sep, [facility] [place] [facility] [address] [id number] [place] [address]- 3106 Sep, [facility] [address] [id number] [place] [address]- 2401 Aug, [facility] [place] [facility] [address] [id number] [place] [address]- 6602 Aug, [facility] [address] [id number] [place] [address]- 3887 Jul, [facility] [address] [id number] [place] [address]- 9429 Jul, [facility] [address] [id number] [place] [address]- 7061 Jul, [facility] [address] [id number] [place] [address]- 2577 Jul, [facility] [place] [facility] [address] [id number] [place] [address]- 4045 Jul, [facility] [address] [id number] [place] [address]- 0518 Jun, [facility] [place] [facility] [address] [id number] [place] [address]- 4513 25 Jun, 2013 [facility] [place] [facility] [address] [id number] [place] [address]- 1421 19 Jun, 2013 [facility] [place] [facility] [address] [id number] [place] [address]- 4487 18 Jun, 2013 [facility] [address] [id number] [place] [address]- 1498 16 Jun, 2013 [facility] [place] [facility] [address] [id number] [place] [address]- 0998 12 Jun, 2013 [facility] [place] [facility] [address] [id number] [place] [address]- 3741 11 Jun, 2013 [facility] [place] [facility] [address] [id number] [place] [address]- 6050 30 May, 2013 [facility] [place] [facility] [address] [id number] [place] [address]- 5716 May, [facility] [place] [facility] [address] [id number] [place] [address]- 6296 Apr, [facility] [place] [facility] [address] [id number] [place] [address]- 8715 Apr, [facility] [place] [facility] [address] [id number] [place] [address]- 8338 Apr, [facility] [place] [facility] [address] [id number] [place] [address]- 5872 Mar, [facility] [place] [facility] [address] [id number] [place] [address]- 9966 Mar, [facility] [place] [facility] [address] [id number] [place] [address]- 2376 February, [facility] [place] [facility] [address] [id number] [place] [address]- 3599 February, [facility] [place] [facility] [address] [id number] [place] [address]- 2724 February, [facility] [place] [facility] [address] [id number] [place] [address]- 4093 February, [facility] [place] [facility] [address] [id number] [place] [address]- 6381 Jan, [facility] [place] [facility] [address] [id number] [place] [address]- 2445 17 Jan, 2013 [facility] [address] [id number] [place] [address]- 6676 16 Jan, 2013 [facility] [address] [id number] [place] [address]- 0716 29 Dec, 2012 [facility] [address] [id number] [place] [address]- 0245 Dec, [facility] [address] [id number] [place] [address]- 8573 Dec, [facility] [address] [id number] [place] [address]- 1024 Dec, [facility] [address] [id number] [place] [address]- 9803 20 Nov, 2012 [facility] [address] [id number] [place] [address]- 5859 Nov, [facility] [address] [id number] [place] [address]- 2930 Oct, [facility] [address] [id number] [place] [address]- 1250 Oct, [facility] [address] [id number] [place] [address]- 6422 Oct, [facility] [address] [id number] [place] [address]- 2727 Oct, [facility] [address] [id number], [place] [address]- 4268 Aug, [facility] [address] [id number] [place] [address]- 1593 Aug, [facility] [place] [facility] [address] [id number] [place] [address]- 0533 Jun, [facility] [address] [id number], [place] [address]- 9829 May, [facility] [place] [facility] [address] [id number] [place] [address]- 6822 May, [facility] [place] [facility] [address] [id number] [place] [address]- 1736 Apr, [facility] [place] [facility] [address] [id number] [place] [address]- 2546 Apr, [facility] [place] [facility] [address] [id number] [place] [address]- 0854 Apr, [facility] [place] [facility] [address] [id number] [place] [address]- 7605 Mar, [facility] [place] [facility] [address] [id number] [place] [address]- 7454 Mar, [facility] [place] [facility] [address] [id number] [place] [address]- 4344 Mar, [facility] [place] [facility] [address] [id number] [place] [address]- 3154 Mar, [facility] [place] [facility] [address] [id number] [place] [address]- 7633 Mar, [facility] [place] [facility] [address] [id number] [place] [address]- 4481 February, [facility] [place] [facility] [address] [id number] [place] [address]- 4660 February, [facility] [place] [facility] [address] [id number] [place] [address]- 5616 February, [facility] [place] [facility] [address] [id number] [place] [address]- 3586 February, [facility] [place] [facility] [address] [id number] [place] [address] February, [facility] [place] [facility] [address] [id number] [place] [address] February, [facility] [place] [facility] [address] [id number] [place] [address] February, [facility] [place] [facility] [address] [id number] [place] [address] 25 Jan, 2012 [facility] [place] [facility] [address] [id number] [place] [address] 18 Jan, 2012 [facility] [place] [facility] [address] [facility] [id number] [place] [address] 17 Jan, 2012 [facility] [place] [facility] [address] [id number] [place] [address] 13 Jan, 2012 [facility] [place] [facility] [address] [id number] [place] [address] 10 Jan, 2012 [facility] [place] [facility] [address] [facility] [id number] [place] [address] 04 Jan, 2012 [facility] [place] [facility] [address] [facility] [id number] [place] [address] 30 Dec, 2011 [facility] [place] [facility] [address] [id number] [place] [address] 24 Dec, 2011 [facility] [place] [facility] [address] [id number] [place] [address] 7084 20 Dec, 2011 [facility] [place] [facility] [address] [facility] [id number] [place] [address] Dec, [facility] [place] [facility] [address] [facility] [id number] [place] [address] 06 Dec, 2011 [facility] [place] [facility] [address] [id number] [place] [address] 28 Nov, 2011 [facility] [place] [facility] [address] [id number] [place] [address] 27 Nov, 2011 [facility] [place] [facility] [address] [id number] [place] [address] 25 Nov, 2011 [facility] [place] [facility] [address] [facility] [id number] [place] [address] 14 Nov, 2011 [facility] [place] [facility] [address] [id number] [place] [address] 10 Nov, 2011 [facility] [address] [id number] [place] [address] Nov, [facility] [place] [facility] [address] [id number] [place] [address] Oct, [facility] [address] [id number] [place] [address] Oct, [facility] [place] [facility] [address] [id number] [place] [address] Oct, [facility] [place] [facility] [address] [id number] [place] [address] Oct, [facility] [address] [id number] [place] [address]78 Oct, [facility] [address] [id number] [place] [address] Sep, [facility] [address] [id number] [place] [address] Sep, [facility] [address] [id number] [place] [address]648 20 Sep, 2011 [facility] [address] [id number] [place] [address] 14 Sep, 2011 [facility] [place] [facility] [address] [id number] [place] [address]46 14 Sep, 2011 [facility] [place] [facility] [address] [id number] [place] [address] 2542 13 Sep, 2011 [facility] [place] [facility] [address] [id number] [place] [address] 2546 12 Sep, 2011 [facility] [place] [facility] [address] [id number] [place] [address] 2546 09 Sep, 2011 [facility] [place] [facility] [address] [id number] [place] [address] Sep, [facility] [place] [facility] [address] [id number] [place] [address] Aug, [facility] [place] [facility] [address] [id number], [place] [address] Aug, [facility] [place] [facility] [address] [facility] [id number] [place] [address] Aug, [facility] [place] [facility] [address] [id number], [place] [address] Aug, [facility] [place] [facility] [address] [id number] [place] [address] Aug, [facility] [place] [facility] [address] [id number], [place] [address] Aug, [facility] [place] [facility] [address] [id number], [place] [address] Aug, [facility] [place] [facility] [address] [id number], [place] [address] Aug, [facility] [place] [facility] [address] [id number], [place] [address] Aug, [facility] [place] [facility] [address] [id number], [place] [address] Aug, [facility] [place] [facility] [address] [id number], [place] [address] 2960 Aug, [facility] [place] [facility] [address] [id number], [place] [address] 24[address] Aug, [facility] [place] [facility] [address] [id number], [place] [address] Jul, [facility] [place] [facility] [address] [id number], [place] [address] Jul, [facility] [place] [facility] [address] [id number], [place] [address] Jul, [facility] [place] [facility] [id number], [place] [address] Jul, [facility] [address] [facility] [id number], [place] [address] Jul, [facility] [address] [facility] [id number], [place] [address] Jul, [facility] [address] [facility] [id number], [place] [address] Jul, [facility] [address] [facility] [id number], [place] [address] Jul, [facility] [id number] [place] [address]- [address] Jul, [facility] [id number], [place] [address] Jul, [facility] [id number], [place] [address] Nov, [facility] [id number], [place] [address] 26[address] Aug, [facility] [id number], [place] [address] 279[address] Aug, [facility] [id number], [place] [address] Aug, [facility] [address]65[address], [place] [address] Aug, [facility] [id number], [place] [address] Jul, IMMUNIZATIONS No Known Immunizations SOCIAL HISTORY Never Assessed REASON FOR VISIT intake PLAN OF CARE Activity Details Follow Up prn Reason: F/U VITAL SIGNS MEDICATIONS Medication Instructions Dosage Frequency Start Date End Date Duration Status Abilify 30 MG Orally Once a day 1 tablet 24h Active Levothyroxine Sodium 75 MCG Orally Once a day 1 tablet on an empty stomach in the morning 24h Active Seroquel 300 MG Orally Once a day at bedtime for sleep 1 tablet Active Trileptal 600 MG Orally Twice a day 1 tablet 12h 30 days Active NovoLog Mix 70/30 (70-30) 100 UNIT/ML Subcutaneous 3 times a day 27 units 8h Active Ventolin HFA 90 MCG/ACT Inhalation every 6 hrs 2 puffs as needed 6h Active Nitrofurantoin Monohyd Macro 100 MG Orally every 12 hrs 1 capsule with food 12h Not-Taking Hydrocodone-Acetaminophen 10-325 mg 1 Tablet by Oral route every 8 hours PRN pain Jul, Active Topamax 100 mg Orally Twice a day 1.5 tablet 12h Active Trintellix 20 mg orally Once a day 1 tablet 24h Active Metformin HCl 1000 MG Orally 2 times a day 1 tablet 12h Not-Taking Intuniv 1 MG Orally 2 times a day 1 tablet 12h Active Ativan 1 MG Orally 2 times a day as needed 1 tablet Active Levemir 100 UNIT/ML Subcutaneous at bedtime 70 units Active Cyproheptadine HCl 4 MG Orally Twice a day 1 tablet 12h 30 days Active RESULTS No Results PROCEDURES Procedure Date Ordered Result Body Site [facility] VISIT MENTAL HEALTH ESTAB PT May 04, 2018 Psych diagnostic evaluation, established patient May 04, 2018 INSTRUCTIONS MEDICATIONS ADMINISTERED No Known Medications MEDICAL (GENERAL) HISTORY Type Description Date Medical History diabetes Medical History thyroid Surgical History appendix Surgical History gallbladder Surgical History eyes Surgical History hip Surgical History MRI on back and pelvis 06/08 Hospitalization History surgeries Hospitalization History [facility] Suicide attempt by hanging 06/14/2016 Hospitalization History [facility] 01/30/2018-02/10/2008 Hospitalization History [facility] 05/04/18-05/09/18
--- OUTSIDE RECORDS SUMMARY | 2018-08-15 20:16 | XMS REPORT ---
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 39311033 Problem Schizoaffective disorder, depressive type F25.1 Active 77946670 Problem Borderline personality disorder F60.3 Active 99601052 Problem Attention deficit hyperactivity disorder (ADHD), inattentive type, 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 98864676 Problem Schizoaffective disorder, unspecified F25.9 Active 71760074 Problem High risk medication use Z79.899 Active 824864824 Problem Posttraumatic stress disorder F43.10 Active 56865234 Problem Obsessive-compulsive disorders 300.3 Active 250934548 Problem Generalized anxiety disorder 300.02 Active 84448021 Problem Attention deficit disorder 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 314.00 Active 49284143 Problem Bipolar disorder, unspecified 296.80 Active 62196455 Problem Posttraumatic stress disorder 309.81 Active 73036121 Problem Paranoid schizophrenia, unspecified condition 295.30 Active [id number] ALLERGIES No Information ENCOUNTERS Encounter Location Date Diagnosis [facility] [address] [facility] [id number] [address] Jul, [facility] [address] [place] [address] May, Paranoid schizophrenia F20.0 ; Posttraumatic stress disorder F43.10 ; Attention deficit hyperactivity disorder (ADHD), inattentive type, 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 and Borderline personality disorder F60.3 [facility] [id number] [place] [address] 27591- 6562 May, [facility] [address] [facility] [id number] [place] [address] May, Paranoid schizophrenia F20.0 [facility] [id number] [address] May, Paranoid schizophrenia F20.0 ; Posttraumatic stress disorder F43.10 ; Attention deficit hyperactivity disorder (ADHD), inattentive type, 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 and Borderline personality disorder F60.3 [facility] [id number] [address] Apr, [facility] [id number] [address] Apr, Paranoid schizophrenia F20.0 ; Posttraumatic stress disorder F43.10 ; Attention deficit hyperactivity disorder (ADHD), inattentive type, 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3 [facility] [address] [facility] [id number] [place] [address] Apr, [facility] [id number] [address] 1785 Apr, Paranoid schizophrenia F20.0 ; Posttraumatic stress disorder F43.10 ; Attention deficit hyperactivity disorder (ADHD), inattentive type, 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 and Borderline personality disorder F60.3 [facility] [address] [address] Apr, [facility] [address] [address] Mar, Paranoid schizophrenia F20.0 [facility] [address] [address] Mar, [facility] [address] [address] 5[address] Mar, Paranoid schizophrenia F20.0 ; Posttraumatic stress disorder F43.10 ; Attention deficit hyperactivity disorder (ADHD), inattentive type, 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 and Borderline personality disorder F60.3 [facility] [address] [address] February, Paranoid schizophrenia F20.0 [facility] [address] [address] 57[address] February, Paranoid schizophrenia F20.0 ; Posttraumatic stress disorder F43.10 ; Attention deficit hyperactivity disorder (ADHD), inattentive type, 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 and Borderline personality disorder F60.3 [facility] [address] [address] 9[address] February, Paranoid schizophrenia F20.0 ; Posttraumatic stress disorder F43.10 ; Attention deficit hyperactivity disorder (ADHD), inattentive type, 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 and Borderline personality disorder F60.3 [facility] [address] [address] 8[address] February, [facility] [address] [address] 57[address] February, Paranoid schizophrenia F20.0 [facility] [address] [address]- 1008 February, Paranoid schizophrenia F20.0 [facility] [id number] [address] 7[address] February, Paranoid schizophrenia F20.0 ; Posttraumatic stress disorder F43.10 ; Attention deficit hyperactivity disorder (ADHD), inattentive type, 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 and Borderline personality disorder F60.3 [facility] [address] [address] 4[address] Jan, Paranoid schizophrenia F20.0 ; Posttraumatic stress disorder F43.10 ; Attention deficit hyperactivity disorder (ADHD), inattentive type, 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 and Borderline personality disorder F60.3 [facility] [id number] [place] [address] 51479- 8365 Jan, Paranoid schizophrenia F20.0 [facility] [id number] [place] [address] 63104- 9864 Jan, Paranoid schizophrenia F20.0 [facility] [address] [id number] [address]- 7809 Jan, Paranoid schizophrenia F20.0 ; Posttraumatic stress disorder F43.10 ; Attention deficit hyperactivity disorder (ADHD), inattentive type, 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 and Borderline personality disorder F60.3 [facility] [address] [address] 4[address] Dec, [facility] [address] [address]- 7[address] Nov, Paranoid schizophrenia F20.0 ; Posttraumatic stress disorder F43.10 ; Attention deficit hyperactivity disorder (ADHD), inattentive type, 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 and Borderline personality disorder F60.3 [facility] [address] [address]- 5[address] Nov, [facility] [address] [address] 6914 Oct, Paranoid schizophrenia F20.0 [facility] [id number] [address]- 27[address] Oct, Paranoid schizophrenia F20.0 ; Posttraumatic stress disorder F43.10 ; Attention deficit hyperactivity disorder (ADHD), inattentive type, 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 ; Borderline personality disorder F60.3 and 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 Z79.899 [facility] [address]005[address] [address] Oct, [facility] [address] [address]- 3656 Oct, [facility] [address] [address]- 0[address] Sep, [facility] [address] [address]- 2018 Sep, Paranoid schizophrenia F20.0 ; Posttraumatic stress disorder F43.10 ; Attention deficit hyperactivity disorder (ADHD), inattentive type, 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10 ; Attention deficit hyperactivity disorder (ADHD), inattentive type, 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 and Borderline personality disorder F60.3 [facility] [address] [address]- 2535 Aug, [facility] [address] [address]- 0855 Jul, Paranoid schizophrenia F20.0 ; Posttraumatic stress disorder F43.10 ; Attention deficit hyperactivity disorder (ADHD), inattentive type, 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10 ; Attention deficit hyperactivity disorder (ADHD), inattentive type, 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 and Borderline personality disorder F60.3 [facility] [address] [address]- 2064 May, Other alf (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 Z79.899 [facility] [address] [address]- 1479 May, [facility] [address] [address]- 5277 May, [facility] [address] [address]- 0780 May, Attention deficit hyperactivity disorder (ADHD), inattentive type, 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 [facility] [address] [address]- 9923 May, [facility] [address] [address]- 3341 May, Attention deficit hyperactivity disorder (ADHD), inattentive type, 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 [facility] [address] [address]- 4202 May, Paranoid schizophrenia F20.0 ; Posttraumatic stress disorder F43.10 ; Attention deficit hyperactivity disorder (ADHD), inattentive type, 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 and 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 Z79.899 [facility] [id number] [address]- 0891 Apr, Paranoid schizophrenia F20.0 [facility] [address] [address]- 2260 Apr, Paranoid schizophrenia F20.0 ; Posttraumatic stress disorder F43.10 and Attention deficit hyperactivity disorder (ADHD), inattentive type, 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 [facility] [address] [address]- 1343 February, [facility] [address] [address]- 9607 February, Paranoid schizophrenia F20.0 ; Posttraumatic stress disorder F43.10 and Attention deficit hyperactivity disorder (ADHD), inattentive type, 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 [facility] [address] [address]- 8760 February, Paranoid schizophrenia F20.0 ; Posttraumatic stress disorder F43.10 and Attention deficit hyperactivity disorder (ADHD), inattentive type, 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 [facility] [address] [address]- 3101 Jan, Paranoid schizophrenia F20.0 ; Posttraumatic stress disorder F43.10 and Attention deficit hyperactivity disorder (ADHD), inattentive type, 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 [facility] [address] [address] Dec, Dental examination Z01.20 [facility] [address] [id number] [place] [id number] Nov, Dental examination Z01.20 [facility] [address] [id number] [place] [address] Nov, Dental examination Z01.20 [facility] [address] [address] Nov, Dental caries K02.9 [facility] [address] [address]- 3708 Nov, High risk medication use Z79.899 [facility] [address] [address]- 0349 Nov, Paranoid schizophrenia F20.0 ; Posttraumatic stress disorder F43.10 ; Attention deficit hyperactivity disorder (ADHD), inattentive type, 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 and Borderline personality disorder in adult F60.3 [facility] [address] [place] [id number] Oct, Dental caries K02.9 [facility] [id number] [place] [address] 97851- 9185 Sep, Paranoid schizophrenia F20.0 ; Posttraumatic stress disorder F43.10 and Attention deficit hyperactivity disorder (ADHD), inattentive type, 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 [facility] [address] [place] [address] 08113- 8137 Aug, Paranoid schizophrenia F20.0 ; Posttraumatic stress disorder F43.10 and Attention deficit hyperactivity disorder (ADHD), inattentive type, 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 [facility] [address] [address] Aug, Strep throat J02.0 and Cough R05 [facility] [address] [place] [address] 68669- 1088 Aug, [facility] [address] [place] [address] 29262- 7912 Jul, Paranoid schizophrenia F20.0 ; Posttraumatic stress disorder F43.10 and Attention deficit hyperactivity disorder (ADHD), inattentive type, 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 [facility] [address] [address]- 3785 Jul, [facility] [id number] [place] [address] 57746- 5266 Jun, Paranoid schizophrenia F20.0 ; Posttraumatic stress disorder F43.10 and Attention deficit hyperactivity disorder (ADHD), inattentive type, 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 [facility] [address] [address] Jun, Dental examination Z01.20 [facility] [address] [place] [address] 47814- 9492 Jun, [facility] [id number] [place] [address] 77004- 5166 May, Paranoid schizophrenia F20.0 [facility] [id number] [place] [address] 47698- 1893 May, Paranoid schizophrenia F20.0 ; Posttraumatic stress disorder F43.10 and Attention deficit hyperactivity disorder (ADHD), inattentive type, 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 [facility] [address] [place] [address] 90277- 8740 May, [facility] [id number] [place] [address] 62097- 8446 May, Paranoid schizophrenia F20.0 [facility] [address] [place] [address] 35389- 3555 May, [facility] [address] [place] [address] 64935- 0395 May, Paranoid schizophrenia F20.0 [facility] [id number] [place] [address] 14698- 0144 May, Schizoaffective disorder, unspecified F25.9 [facility] [address] [address]- 2922 May, Schizoaffective disorder, unspecified F25.9 [facility] [id number] [address]- 8217 May, [facility] [id number] [place] [address] 96332- 0406 May, Paranoid schizophrenia F20.0 [facility] [id number] [address]- 8560 May, Paranoid schizophrenia F20.0 ; Posttraumatic stress disorder F43.10 and Attention deficit hyperactivity disorder (ADHD), inattentive type, 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 [facility] [address] [id number] [place] [address]- 3806 Mar, [facility] [address] [id number] [place] [address] Mar, Paranoid schizophrenia F20.0 ; Posttraumatic stress disorder F43.10 and Attention deficit hyperactivity disorder (ADHD), inattentive type, 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 [facility] [address] [id number] [place] [address]- 9149 Mar, Paranoid schizophrenia F20.0 [facility] [address] [facility] [id number] [place] [address]- 4590 Mar, Paranoid schizophrenia F20.0 ; Attention deficit hyperactivity disorder (ADHD), inattentive type, 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 and Posttraumatic stress disorder F43.10 [facility] [address] [facility] [id number] [place] [address]- 7702 Mar, [facility] [address] [facility] [id number] [place] [address]349 Mar, Paranoid schizophrenia F20.0 ; Posttraumatic stress disorder F43.10 and Attention deficit hyperactivity disorder (ADHD), inattentive type, 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 [facility] [address] [id number] [place] [address]- 3719 February, [facility] [address] [facility] [id number] [place] [address] February, [facility] [address] [id number] [place] [address]- 7303 February, [facility] [address] [facility] [id number] [place] [address] 6166 February, [facility] [address] [facility] [id number] [place] [address]- 5406 Jan, Paranoid schizophrenia F20.0 [facility] [place] [address] [id number] [place] [address] Jan, Dental examination Z01.20 [facility] [address] [id number] [place] [address] Jan, Dental caries K02.9 [facility] [address] [id number] [place] [address] Jan, Dental examination Z01.20 [facility] [address] [id number] [place] [address] Dec, Encounter for dental examination Z01.20 [facility] [address] [facility] [id number] [place] [address]- 4186 Dec, Paranoid schizophrenia F20.0 [facility] [address] [id number] [place] [address] Dec, Dental examination Z01.20 [facility] [address] [address]- 8011 Dec, [facility] [id number] [address]- 3830 Dec, Paranoid schizophrenia F20.0 ; Posttraumatic stress disorder F43.10 and Attention deficit hyperactivity disorder (ADHD), inattentive type, 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 [facility] [address] [address]- 6860 Nov, Schizoaffective disorder, unspecified F25.9 [facility] [id number] [address]- 7645 Oct, Paranoid schizophrenia F20.0 [facility] [id number] [address]- 8403 Oct, [facility] [id number] [address]- 0203 Sep, Paranoid schizophrenia F20.0 ; Posttraumatic stress disorder F43.10 and Attention deficit hyperactivity disorder (ADHD), inattentive type, 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 [facility] [address] [address] Sep, [facility] [address] [place] [address] 91741- 7573 Sep, Paranoid schizophrenia F20.0 ; Posttraumatic stress disorder F43.10 and Attention deficit hyperactivity disorder (ADHD), inattentive type, 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 [facility] [id number] [place] [address] 75872- 0607 Aug, Paranoid schizophrenia F20.0 [facility] [address] [address]- 2095 Aug, [facility] [id number] [place] [address] 27417- 6745 Aug, Posttraumatic stress disorder F43.10 ; Paranoid schizophrenia F20.0 and Attention deficit hyperactivity disorder (ADHD), inattentive type, 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 [facility] [address] [place] [address] 47272- 6971 Jul, Bipolar disorder, unspecified F31.9 [facility] [address] [address]- 5100 Jul, [facility] [address] [id number] [address]- 6925 Jun, [facility] [address] [address]- 1419 Jun, Schizoaffective disorder, chronic 295.72 ; Posttraumatic stress disorder 309.81 and Attention deficit disorder 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 314.00 [facility] [address] [address]- 2620 May, [facility] [id number] [place] [address] 97824- 9860 May, [facility] [address] [address]- 9234 May, Schizoaffective disorder, chronic 295.72 ; Posttraumatic stress disorder 309.81 ; Attention deficit disorder 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 314.00 and Bipolar disorder, unspecified 296.80 [facility] [address] [address]- 3601 Apr, Schizoaffective disorder, chronic 295.72 [facility] [address] [address]- 7591 Apr, [facility] [id number] [place] [address] 94910- 5999 Apr, Schizoaffective disorder, chronic 295.72 ; Posttraumatic stress disorder 309.81 and Attention deficit disorder 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 314.00 [facility] [address] [place] [address] 58367- 6726 Mar, Disorganized schizophrenia, 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 [facility] [address] [id number] [address]- 8224 Mar, [facility] [id number] [place] [address] 67543- 1718 Mar, [facility] [address] [address]- 9571 Mar, [facility] [address] [address]- 2273 Mar, [facility] [address] [address]- 6130 February, Schizoaffective disorder, chronic 295.72 [facility] [address] [address]- 2259 February, [facility] [address] [address]- 1155 February, Attention deficit disorder 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 314.00 ; Posttraumatic stress disorder 309.81 and Schizoaffective disorder, chronic 295.72 [facility] [address] [address]- 2966 Jan, [facility] [place] [facility] [address] [id number] [place] [address]- 2353 14 Jan, 2015 [facility] [place] [facility] [address] [id number] [place] [address]- 5478 Jan, [facility] [place] [facility] [address] [id number] [place] [address]- 2675 Dec, [facility] [place] [facility] [address] [id number] [place] [address]- 0229 Dec, [facility] [place] [facility] [address] [address] [id number] [place] [address] Dec, [facility] [place] [facility] [address] [id number] [place] [address] 30[address] Dec, [facility] [place] [facility] [address] [id number] [place] [address] 1861 Dec, [facility] [place] [facility] [address] [id number] [place] [address] 4312 Dec, [facility] [place] [facility] [address] [id number] [place] [address] 2857 Dec, [facility] [place] [facility] [address] [id number] [place] [address] 9713 Dec, [facility] [place] [facility] [address] [id number] [place] [address] 6931 Nov, [facility] [place] [facility] [address] [id number] [place] [address] 5798 Nov, [facility] [place] [facility] [address] [id number] [place] [address] 9754 Nov, [facility] [place] [facility] [address] [id number] [place] [address]- 6145 Nov, [facility] [place] [facility] [address] [id number] [place] [address] 3414 Nov, [facility] [place] [facility] [address] [id number] [place] [address] 4165 Nov, [facility] [place] [facility] [address] [id number] [place] [address] 5001 Nov, [facility] [place] [facility] [address] [id number] [place] [address] Nov, [facility] [place] [facility] [address] [id number] [place] [address]- 6251 Nov, [facility] [place] [facility] [address] [id number] [place] [address]- 5635 Nov, [facility] [place] [facility] [address] [id number] [place] [address]- 8233 Oct, [facility] [place] [facility] [address] [id number] [place] [address]- 0902 Oct, [facility] [place] [facility] [address] [id number] [place] [address]- 7798 Oct, [facility] [place] [facility] [address] [id number] [place] [address] 6555 Oct, [facility] [place] [facility] [address] [id number] [place] [address]- 8525 Oct, [facility] [place] [facility] [address] [facility] [id number] [place] [address]- 4002 Oct, [facility] [place] [facility] [address] [id number] [place] [address]- 8681 Oct, [facility] [place] [facility] [address] [id number] [place] [address]- 1845 Sep, [facility] [place] [facility] [address] [id number] [place] [address]- 3424 Sep, [facility] [place] [facility] [address] [id number] [place] [address]- 4626 Sep, [facility] [place] [facility] [address] [id number] [place] [address]- 7870 Sep, [facility] [place] [facility] [address] [id number] [place] [address]- 1883 Aug, [facility] [place] [facility] [address] [id number] [place] [address]- 5135 Aug, [facility] [place] [facility] [address] [id number] [place] [address]- 8011 Aug, [facility] [place] [facility] [address] [id number] [place] [address]- 2006 Aug, [facility] [place] [facility] [address] [id number] [place] [address]- 0427 Aug, [facility] [place] [facility] [address] [id number] [place] [address]- 4828 Aug, [facility] [place] [facility] [address] [id number] [place] [address]- 1386 Jul, [facility] [place] [facility] [address] [id number] [place] [address]- 2968 Jul, [facility] [place] [facility] [address] [id number] [place] [address]- 6945 Jul, [facility] [place] [facility] [address] [id number] [place] [address]- 3872 Jul, [facility] [place] [facility] [address] [id number] [place] [address]- 9053 Jul, [facility] [place] [facility] [address] [id number] [place] [address]- 0281 Jul, [facility] [place] [facility] [address] [id number] [place] [address]- 7675 Jun, [facility] [place] [facility] [address] [id number] [place] [address]- 7960 27 Jun, 2014 [facility] [place] [facility] [address] [id number] [place] [address]- 6115 26 Jun, 2014 [facility] [place] [facility] [address] [id number] [place] [address]- 9964 Jun, 2013 [facility] [place] [facility] [address] [id number] [place] [address]- 4226 Jun, 2013 [facility] [place] [facility] [address] [id number] [place] [address]- 6136 Jun, [facility] [place] [facility] [address] [id number] [place] [address] 2546 Jun, 2013 [facility] [place] [facility] [address] [id number] [place] [address] 2546 Jun, 2013 [facility] [place] [facility] [address] [id number] [place] [address]- 7591 Jun, 2013 [facility] [place] [facility] [address] [id number] [place] [address] 8387 Jun, [facility] [place] [facility] [address] [id number] [place] [address]- 1370 Jun, [facility] [place] [facility] [address] [id number] [place] [address]- 4020 May, [facility] [place] [facility] [address] [id number] [place] [address]- 7263 May, [facility] [place] [facility] [address] [id number] [place] [address]- 8500 May, [facility] [place] [facility] [address] [id number] [place] [address]- 5957 May, [facility] [place] [facility] [address] [id number] [place] [address]- 7412 May, [facility] [place] [facility] [address] [id number] [place] [address]- 0156 May, [facility] [place] [facility] [address] [id number] [place] [address]- 3658 May, [facility] [place] [facility] [address] [id number] [place] [address]- 3626 May, [facility] [place] [facility] [address] [id number] [place] [address]- 2279 May, [facility] [place] [facility] [address] [id number] [place] [address]- 7997 May, [facility] [place] [facility] [address] [id number] [place] [address]- 7527 Apr, [facility] [place] [facility] [address] [id number] [place] [address]- 6089 Apr, [facility] [place] [facility] [address] [id number] [place] [address]- 0739 Apr, [facility] [place] [facility] [address] [id number] [place] [address]- 5843 Apr, [facility] [place] [facility] [address] [id number] [place] [address]- 7459 Apr, [facility] [place] [facility] [address] [id number] [place] [address]- 5508 Apr, [facility] [place] [facility] [address] [id number] [place] [address]- 2292 Apr, [facility] [place] [facility] [address] [id number] [place] [address]- 3968 Apr, [facility] [place] [facility] [address] [id number] [place] [address]- 0147 Apr, [facility] [place] [facility] [address] [id number] [place] [address]- 5218 Apr, [facility] [place] [facility] [address] [id number] [place] [address]- 1344 Mar, [facility] [place] [facility] [address] [id number] [place] [address]- 1399 Mar, [facility] [place] [facility] [address] [id number] [place] [address]- 0159 Mar, [facility] [place] [facility] [address] [id number] [place] [address]- 7817 Mar, [facility] [place] [facility] [address] [id number] [place] [address]- 9776 Mar, [facility] [place] [facility] [address] [id number] [place] [address]- 7644 Mar, [facility] [place] [facility] [address] [id number] [place] [address]- 7503 18 Mar, 2014 [facility] [place] [facility] [address] [id number] [place] [address]- 5279 Mar, [facility] [place] [facility] [address] [id number] [place] [address]- 5768 16 Mar, 2014 [facility] [place] [facility] [address] [id number] [place] [address]- 8875 Mar, [facility] [place] [facility] [address] [id number] [place] [address]- 4055 Mar, [facility] [place] [facility] [address] [id number] [place] [address]- 6076 Mar, [facility] [place] [facility] [address] [id number] [place] [address]- 4197 Mar, [facility] [place] [facility] [address] [id number] [place] [address]- 3940 Mar, [facility] [place] [facility] [address] [id number] [place] [address]- 4381 Mar, [facility] [place] [facility] [address] [id number] [place] [address]- 0698 Mar, [facility] [place] [facility] [address] [id number] [place] [address]- 1713 Mar, [facility] [place] [facility] [address] [id number] [place] [address]- 2928 Mar, [facility] [place] [facility] [address] [id number] [place] [address]- 6732 04 Mar, 2014 [facility] [place] [facility] [address] [id number] [place] [address]- 3485 Mar, [facility] [address] [id number] [place] [address]- 8346 February, [facility] [address] [id number] [place] [address]- 8002 February, [facility] [address] [id number] [place] [address]- 2392 February, [facility] [place] [facility] [address] [id number] [place] [address]- 2423 February, [facility] [address] [id number] [place] [address]- 1746 February, [facility] [address] [id number] [place] [address]- 5301 February, [facility] [address] [id number] [place] [address]- 4458 February, [facility] [address] [id number] [place] [address]- 4703 February, [facility] [address] [id number] [place] [address]- 8750 February, [facility] [address] [id number] [place] [address]- 2552 February, [facility] [address] [id number] [place] [address]- 1125 February, [facility] [place] [facility] [address] [id number] [place] [address]- 8036 February, [facility] [place] [facility] [address] [id number] [place] [address]- 8014 February, [facility] [place] [facility] [address] [id number] [place] [address]- 7189 February, [facility] [place] [facility] [address] [id number] [place] [address]- 3575 February, [facility] [place] [facility] [address] [id number] [place] [address]- 3758 February, [facility] [place] [facility] [address] [id number] [place] [address]- 9965 February, [facility] [place] [facility] [address] [id number] [place] [address]- 6630 February, [facility] [place] [facility] [address] [id number] [place] [address]- 5969 February, [facility] [place] [facility] [address] [id number] [place] [address]- 4312 February, [facility] [place] [facility] [address] [id number] [place] [address]- 3068 February, [facility] [place] [facility] [address] [id number] [place] [address]- 4706 Jan, [facility] [place] [facility] [address] [id number] [place] [address]- 9773 Jan, [facility] [place] [facility] [address] [id number] [place] [address]- 5955 Jan, [facility] [place] [facility] [address] [id number] [place] [address]- 6659 Jan, [facility] [place] [facility] [address] [id number] [place] [address]- 5312 Jan, [facility] [place] [facility] [address] [id number] [place] [address]- 5478 Jan, [facility] [place] [facility] [address] [id number] [place] [address]- 6793 Jan, [facility] [place] [facility] [address] [id number] [place] [address]- 6189 Jan, [facility] [place] [facility] [address] [id number] [place] [address]- 5672 Dec, [facility] [place] [facility] [address] [id number] [place] [address]- 7668 20 Dec, 2013 [facility] [place] [facility] [address] [id number] [place] [address]- 3073 20 Dec, 2013 [facility] [place] [facility] [address] [id number] [place] [address]- 9585 19 Dec, 2013 [facility] [place] [facility] [address] [id number] [place] [address]- 7391 19 Dec, 2013 [facility] [place] [facility] [address] [id number] [place] [address]- 4897 15 Dec, 2013 [facility] [place] [facility] [address] [id number] [place] [address]- 6557 15 Dec, 2013 [facility] [place] [facility] [address] [id number] [place] [address]- 3564 11 Dec, 2013 [facility] [place] [facility] [address] [id number] [place] [address]- 2995 10 Dec, 2013 [facility] [place] [facility] [address] [id number] [place] [address]- 2769 10 Dec, 2013 [facility] [place] [facility] [address] [id number] [place] [address]- 9264 18 Nov, 2013 [facility] [place] [facility] [address] [id number] [place] [address]- 8096 Nov, [facility] [place] [facility] [address] [id number] [place] [address]- 9148 Nov, [facility] [place] [facility] [address] [id number] [place] [address]- 5529 Nov, [facility] [place] [facility] [address] [id number] [place] [address]- 6906 Nov, [facility] [place] [facility] [address] [id number] [place] [address]- 4081 Oct, [facility] [place] [facility] [address] [id number] [place] [address]- 0207 Oct, [facility] [place] [facility] [address] [id number] [place] [address]- 7276 Oct, [facility] [address] [id number] [place] [address]- 0673 Sep, [facility] [place] [facility] [address] [id number] [place] [address]- 5226 Sep, [facility] [place] [facility] [address] [id number] [place] [address]- 0657 Sep, [facility] [place] [facility] [address] [id number] [place] [address]- 2516 Sep, [facility] [place] [facility] [address] [id number] [place] [address]- 3747 Aug, [facility] [place] [facility] [address] [id number] [place] [address]- 8448 Aug, [facility] [place] [facility] [address] [id number] [place] [address]- 2190 Jul, [facility] [address] [id number] [place] [address]- 6946 Jul, [facility] [place] [facility] [address] [id number] [place] [address]- 7989 Jul, [facility] [place] [facility] [address] [id number] [place] [address]- 6428 Jul, [facility] [place] [facility] [address] [id number] [place] [address]- 1754 Jul, [facility] [place] [facility] [address] [id number] [place] [address]- 4730 Jun, [facility] [place] [facility] [address] [id number] [place] [address]- 5765 Jun, [facility] [place] [facility] [address] [id number] [place] [address]- 9010 19 Jun, 2013 [facility] [place] [facility] [address] [id number] [place] [address]- 6785 18 Jun, 2013 [facility] [address] [id number] [place] [address]- 0833 16 Jun, 2013 [facility] [place] [facility] [address] [id number] [place] [address]- 2186 12 Jun, 2013 [facility] [place] [facility] [address] [id number] [place] [address]- 7769 11 Jun, 2013 [facility] [place] [facility] [address] [id number] [place] [address]- 7935 30 May, 2013 [facility] [place] [facility] [address] [id number] [place] [address]- 1120 May, [facility] [place] [facility] [address] [id number] [place] [address]- 9310 Apr, [facility] [place] [facility] [address] [id number] [place] [address]- 8330 Apr, [facility] [place] [facility] [address] [id number] [place] [address]- 1963 Apr, [facility] [place] [facility] [address] [id number] [place] [address]- 4409 Mar, [facility] [place] [facility] [address] [id number] [place] [address]- 3120 Mar, [facility] [place] [facility] [address] [id number] [place] [address]- 1018 February, [facility] [place] [facility] [address] [id number] [place] [address]- 6048 February, [facility] [place] [facility] [address] [id number] [place] [address]- 6583 February, [facility] [place] [facility] [address] [id number] [place] [address]- 1005 February, [facility] [place] [facility] [address] [id number] [place] [address]- 4153 Jan, [facility] [place] [facility] [address] [id number] [place] [address]- 8601 17 Jan, 2013 [facility] [address] [id number] [place] [address]- 9235 16 Jan, 2013 [facility] [place] [facility] [address] [id number] [place] [address]- 8157 29 Dec, 2012 [facility] [address] [id number] [place] [address]- 5338 Dec, [facility] [place] [facility] [address] [id number] [place] [address]- 9594 Dec, [facility] [place] [facility] [address] [id number] [place] [address]- 8716 08 Dec, 2012 [facility] [place] [facility] [address] [id number] [place] [address]- 6208 20 Nov, 2012 [facility] [address] [id number] [place] [address]- 2608 Nov, [facility] [place] [facility] [address] [id number] [place] [address]- 6841 Oct, [facility] [place] [facility] [address] [id number] [place] [address]- 5137 Oct, [facility] [address] [id number] [place] [address]- 8709 Oct, [facility] [place] [facility] [address] [id number] [place] [address]- 9464 Oct, [facility] [place] [facility] [address] [id number] [place] [address]- 1434 Aug, [facility] [place] [facility] [address] [id number] [place] [address]- 4114 Aug, [facility] [place] [facility] [address] [id number] [place] [address]- 6447 Jun, [facility] [place] [facility] [address] [id number] [place] [address]- 1458 May, [facility] [place] [facility] [address] [id number] [place] [address]- 2556 May, [facility] [place] [facility] [address] [id number] [place] [address]- 0158 Apr, [facility] [place] [facility] [address] [id number] [place] [address] 2546 Apr, [facility] [place] [facility] [address] [id number] [place] [address]- 2524 Apr, [facility] [address] [id number] [place] [address]- 3056 Mar, [facility] [place] [facility] [address] [id number] [place] [address]- 9087 Mar, [facility] [address] [id number] [place] [address]- 1610 Mar, [facility] [address] [id number] [place] [address]- 8371 Mar, [facility] [place] [facility] [address] [id number] [place] [address]- 6899 Mar, [facility] [place] [facility] [address] [id number] [place] [address]- 2443 February, [facility] [place] [facility] [address] [id number] [place] [address]- 5546 February, [facility] [place] [facility] [address] [id number] [place] [address]- 5616 February, [facility] [place] [facility] [address] [id number] [place] [address]- 9923 February, [facility] [place] [facility] [address] [id number] [place] [address]- 2816 February, [facility] [place] [facility] [address] [id number] [place] [address]- 2946 February, [facility] [place] [facility] [address] [id number] [place] [address]- 7189 February, [facility] [place] [facility] [address] [id number] [place] [address] 25 Jan, 2012 [facility] [place] [facility] [address] [id number] [place] [address] 18 Jan, 2012 [facility] [place] [facility] [address] [id number] [place] [address] 17 Jan, 2012 [facility] [place] [facility] [address] [id number] [place] [address] 13 Jan, 2012 [facility] [place] [facility] [address] [id number] [place] [address]44 10 Jan, 2012 [facility] [place] [facility] [address] [id number] [place] [address] 04 Jan, 2012 [facility] [place] [facility] [address] [id number] [place] [address] 30 Dec, 2011 [facility] [place] [facility] [address] [id number] [place] [address] 24 Dec, 2011 [facility] [place] [facility] [address] [id number] [place] [address] Dec, [facility] [place] [facility] [address] [id number] [place] [address] Dec, [facility] [place] [facility] [address] [id number] [place] [address] Dec, [facility] [place] [facility] [address] [id number] [place] [address]28 28 Nov, 2011 [facility] [place] [facility] [address] [id number] [place] [address] Nov, [facility] [place] [facility] [address] [id number] [place] [address] 25 Nov, 2011 [facility] [place] [facility] [address] [facility] [id number] [place] [address] 14 Nov, 2011 [facility] [place] [facility] [address] [id number] [place] [address] 6968 10 Nov, 2011 [facility] [address] [id number] [place] [address] Nov, [facility] [place] [facility] [address] [id number] [place] [address] Oct, [facility] [address] [id number] [place] [address] Oct, [facility] [address] [id number] [place] [address] Oct, [facility] [place] [facility] [address] [id number] [place] [address] Oct, [facility] [address] [id number] [place] [address] Oct, [facility] [address] [id number] [place] [address] Sep, [facility] [address] [id number] [place] [address]687 Sep, [facility] [address] [id number] [place] [address] Sep, [facility] [address] [id number] [place] [address]44 14 Sep, 2011 [facility] [place] [facility] [address] [id number] [place] [address]647 14 Sep, 2011 [facility] [place] [facility] [address] [id number] [place] [address] 13 Sep, 2011 [facility] [place] [facility] [address] [id number] [place] [address] 12 Sep, 2011 [facility] [place] [facility] [address] [id number] [place] [address]106 09 Sep, 2011 [facility] [place] [facility] [address] [id number] [place] [address] Sep, [facility] [place] [facility] [address] [id number] [place] [address] Aug, [facility] [place] [facility] [address] [id number] [place] [address] Aug, [facility] [place] [facility] [address] [facility] [id number] [place] [address] 7799 Aug, [facility] [place] [facility] [address] [id number] [place] [address] Aug, [facility] [place] [facility] [address] [id number] [place] [address] 64[address] Aug, [facility] [place] [facility] [address] [id number] [place] [address] Aug, [facility] [place] [facility] [address] [id number] [place] [address] Aug, [facility] [place] [facility] [address] [id number] [place] [address] Aug, [facility] [place] [facility] [address] [id number] [place] [address] Aug, [facility] [place] [facility] [address] [id number] [place] [address] 8068 Aug, [facility] [place] [facility] [address] [id number] [place] [address] Aug, [facility] [place] [facility] [address] [id number] [place] [address] Aug, [facility] [place] [facility] [address] [id number] [place] [address]- [address] Jul, [facility] [place] [facility] [address] [id number] [place] [address] Jul, [facility] [place] [facility] [address] [id number] [place] [address] Jul, [facility] [place] [facility] [id number] [address] Jul, [facility] [id number] [address] Jul, [facility] [id number] [address] 24[address] Jul, [facility] [id number] [address] Jul, [facility] [id number] [address] 6[address] Jul, [facility] [id number] [place] [address] Jul, [facility] [id number] [address] Jul, [facility] [id number] [place] [address] Nov, [facility] [id number] [address] 90[address] Aug, [facility] [id number] [address] Aug, [facility] [id number] [address] Aug, [facility] [address] [id number] [address] Aug, [facility] [id number] [address] Jul, IMMUNIZATIONS No Known Immunizations SOCIAL HISTORY Never Assessed REASON FOR VISIT appointment PLAN OF CARE VITAL SIGNS MEDICATIONS Unknown [...] Suicide attempt by hanging 06/14/2016 Hospitalization History [facility] 01/30/2018-02/10/2008 Hospitalization [facility] 05/04/18-05/09/18
--- OUTSIDE RECORDS SUMMARY | 2018-08-15 20:17 | XMS REPORT ---
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 67898500 Problem Schizoaffective disorder, depressive type F25.1 Active 62009467 Problem Borderline personality disorder F60.3 Active 70650599 Problem Attention deficit hyperactivity disorder (ADHD), inattentive type, 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 18736045 Problem Schizoaffective disorder, unspecified F25.9 Active 07221356 Problem High risk medication use Z79.899 Active 673962107 Problem Posttraumatic stress disorder F43.10 Active 64251460 Problem Obsessive-compulsive disorders 300.3 Active 522626073 Problem Generalized anxiety disorder 300.02 Active 38007691 Problem Attention deficit disorder 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 314.00 Active 97436031 Problem Bipolar disorder, unspecified 296.80 Active 43154240 Problem Posttraumatic stress disorder 309.81 Active 93769359 Problem Paranoid schizophrenia, unspecified condition 295.30 Active 63747116 ALLERGIES Substance Reaction Event Type Date Status Latuda agitation Drug Allergy Apr, Active Penicillamine bronchospasm and rash Drug Allergy Apr, Active Cephalexin visual disturbances Drug Allergy Apr, Active Ceftin visual disturbance Drug Allergy Apr, Active Biaxin bronchospasm Drug Allergy Apr, Active Brintellix 10 Mg Tablet nausea and vomiting Non Drug Allergy Apr, Active Cymbalta 30 Mg Capsule, Delayed Release(e.c.) nausea Non Drug Allergy Apr Active ENCOUNTERS Encounter Location Date Diagnosis [facility] [address] [facility] [id number] [address] Jul, [facility] [address], [place] [address] May, Paranoid schizophrenia F20.0 ; Posttraumatic stress disorder F43.10 ; Attention deficit hyperactivity disorder (ADHD), inattentive type, 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 and Borderline personality disorder F60.3 [facility] [address], [place] [address] May, [facility] [address], [place] [address] May, Paranoid schizophrenia F20.0 [facility] [address], [place] [address] May, Paranoid schizophrenia F20.0 ; Posttraumatic stress disorder F43.10 ; Attention deficit hyperactivity disorder (ADHD), inattentive type, 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 and Borderline personality disorder F60.3 [facility] [address], [place] [address] Apr, [facility] [address], [place] [address] Apr, Paranoid schizophrenia F20.0 ; Posttraumatic stress disorder F43.10 ; Attention deficit hyperactivity disorder (ADHD), inattentive type, 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 and Borderline personality disorder F60.3 [facility] [address], [place] [address] Apr, [facility] [address], [place] [address] Apr, Schizoaffective disorder, depressive type F25.1 and Borderline personality disorder F60.3 [facility] [address], [place] [address] Apr, Paranoid schizophrenia F20.0 ; Posttraumatic stress disorder F43.10 ; Attention deficit hyperactivity disorder (ADHD), inattentive type, 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 and Borderline personality disorder F60.3 [facility] [id number], [place] [address] Apr, [facility] [address], [place] [address] Apr, Paranoid schizophrenia F20.0 ; Posttraumatic stress disorder F43.10 ; Attention deficit hyperactivity disorder (ADHD), inattentive type, 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 and Borderline personality disorder F60.3 [facility] [address], [place] [address] Apr, [facility] [id number], [place] [address] Mar, Paranoid schizophrenia F20.0 [facility] [address], [place] [address] Mar, [facility] [address], [place] [address] Mar, Paranoid schizophrenia F20.0 ; Posttraumatic stress disorder F43.10 ; Attention deficit hyperactivity disorder (ADHD), inattentive type, 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 and Borderline personality disorder F60.3 [facility] [address], [place] [address] February, Paranoid schizophrenia F20.0 [facility] [id number], [place] [address] February, Paranoid schizophrenia F20.0 ; Posttraumatic stress disorder F43.10 ; Attention deficit hyperactivity disorder (ADHD), inattentive type, 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 and Borderline personality disorder F60.3 [facility] [id number], [place] [address] February, Paranoid schizophrenia F20.0 ; Posttraumatic stress disorder F43.10 ; Attention deficit hyperactivity disorder (ADHD), inattentive type, 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 and Borderline personality disorder F60.3 [facility] [id number], [place] [address] February, [facility] [address], [place] [address] February, Paranoid schizophrenia F20.0 [facility] [address] [address] February, Paranoid schizophrenia F20.0 [facility] [address], [place] [address] February, Paranoid schizophrenia F20.0 ; Posttraumatic stress disorder F43.10 ; Attention deficit hyperactivity disorder (ADHD), inattentive type, 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 and Borderline personality disorder F60.3 [facility] [address], [place] [address] Jan, Paranoid schizophrenia F20.0 ; Posttraumatic stress disorder F43.10 ; Attention deficit hyperactivity disorder (ADHD), inattentive type, 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 and Borderline personality disorder F60.3 [facility] [address], [place] [address] Jan, Paranoid schizophrenia F20.0 [facility] [address], [place] [address] Jan, Paranoid schizophrenia F20.0 [facility] [address], [place] [address] Jan, Paranoid schizophrenia F20.0 ; Posttraumatic stress disorder F43.10 ; Attention deficit hyperactivity disorder (ADHD), inattentive type, 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 and Borderline personality disorder F60.3 [facility] [id number], [place] [address] Dec, [facility] [address], [place] [address] Nov, Paranoid schizophrenia F20.0 ; Posttraumatic stress disorder F43.10 ; Attention deficit hyperactivity disorder (ADHD), inattentive type, 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 and Borderline personality disorder F60.3 [facility] [address], [place] [address] Nov, [facility] [address], [place] [address] Oct, Paranoid schizophrenia F20.0 [facility] [address], [place] [address] Oct, Paranoid schizophrenia F20.0 ; Posttraumatic stress disorder F43.10 ; Attention deficit hyperactivity disorder (ADHD), inattentive type, 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 ; Borderline personality disorder F60.3 and 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 [facility] [address], [place] [address] Oct, [facility] [address], [place] [address]- [address] Oct, [facility] [address], [place] [address] Sep, [facility] [address], [place] [address] Sep, Paranoid schizophrenia F20.0 ; Posttraumatic stress disorder F43.10 ; Attention deficit hyperactivity disorder (ADHD), inattentive type, 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 and Borderline personality disorder F60.3 [facility] [address], [place] [address] Sep, Paranoid schizophrenia F20.0 [facility] [id number], [place] [address] Aug, Paranoid schizophrenia F20.0 ; Posttraumatic stress disorder F43.10 ; Attention deficit hyperactivity disorder (ADHD), inattentive type, 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 and Borderline personality disorder F60.3 [facility] [address], [place] [address] Aug, Paranoid schizophrenia F20.0 ; Posttraumatic stress disorder F43.10 ; Attention deficit hyperactivity disorder (ADHD), inattentive type, 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 and Borderline personality disorder F60.3 [facility] [address], [place] [address] Aug, [facility] [address], [place] [address] Jul, Paranoid schizophrenia F20.0 ; Posttraumatic stress disorder F43.10 ; Attention deficit hyperactivity disorder (ADHD), inattentive type, 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 and Borderline personality disorder F60.3 [facility] [address], [place] [address] Jul, Paranoid schizophrenia F20.0 [facility] [address], [place] [address] Jul, Paranoid schizophrenia F20.0 ; Posttraumatic stress disorder F43.10 ; Attention deficit hyperactivity disorder (ADHD), inattentive type, 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 and Borderline personality disorder F60.3 [facility] [address], [place] [address] Jun, Paranoid schizophrenia F20.0 ; Posttraumatic stress disorder F43.10 ; Attention deficit hyperactivity disorder (ADHD), inattentive type, 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 and Borderline personality disorder F60.3 [facility] [address], [place] [address]- [address] May, Other mcc (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 Z79.899 [facility] [address], [place] [address]- [address] May, [facility] [address], [place] [address]- [address] May, [facility] [address], [place] [address]- [address] May, Attention deficit hyperactivity disorder (ADHD), inattentive type, 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 [facility] [address], [place] [address]- 9[address] May, [facility] [address], [place] [address]- [address] May, Attention deficit hyperactivity disorder (ADHD), inattentive type, 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 [facility] [address], [place] [address]- [address] May, Paranoid schizophrenia F20.0 ; Posttraumatic stress disorder F43.10 ; Attention deficit hyperactivity disorder (ADHD), inattentive type, 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 and 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 [facility] [id number] [place] [address]- [address] Apr, Paranoid schizophrenia F20.0 [facility] [address], [place] [address]- 18[address] Apr, Paranoid schizophrenia F20.0 ; Posttraumatic stress disorder F43.10 and Attention deficit hyperactivity disorder (ADHD), inattentive type, 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 [facility] [address], [place] [address] February, [facility] [id number], [place] [address] 6[address] February, Paranoid schizophrenia F20.0 ; Posttraumatic stress disorder F43.10 and Attention deficit hyperactivity disorder (ADHD), inattentive type, 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 [facility] [address], [place] [address] 93[address] February, Paranoid schizophrenia F20.0 ; Posttraumatic stress disorder F43.10 and Attention deficit hyperactivity disorder (ADHD), inattentive type, 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 [facility] [address], [place] [address]- [address] Jan, Paranoid schizophrenia F20.0 ; Posttraumatic stress disorder F43.10 and Attention deficit hyperactivity disorder (ADHD), inattentive type, 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 [facility] [address] [id number] [id number] Dec, Dental examination Z01.20 [facility] [address] [id number] [id number] Nov, Dental examination Z01.20 [facility] [address] [id number] 23 Nov, 2016 Dental examination Z01.20 [facility] [id number] [place] [address] [id number] 14 Nov, 2016 Dental caries K02.9 [facility] [address] [place] [address]- [address] 13 Nov, 2016 High risk medication use Z79.899 [facility] [id number] [place] [address]- 5005 Nov, Paranoid schizophrenia F20.0 ; Posttraumatic stress disorder F43.10 ; Attention deficit hyperactivity disorder (ADHD), inattentive type, 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 and Borderline personality disorder in adult F60.3 [facility] [address] [place] [address] [id number] Oct, Dental caries K02.9 [facility] [address] [place] [address]297- 3901 Sep, Paranoid schizophrenia F20.0 ; Posttraumatic stress disorder F43.10 and Attention deficit hyperactivity disorder (ADHD), inattentive type, 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 [facility] [address] [place] [address]- 5036 Aug, Paranoid schizophrenia F20.0 ; Posttraumatic stress disorder F43.10 and Attention deficit hyperactivity disorder (ADHD), inattentive type, 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 [facility] [address], [place] [address] Aug, Strep throat J02.0 and Cough R05 [facility] [address] [place] [address]336- 1263 Aug, [facility] [id number] [place] [address]- 5472 24 Jul, 2016 Paranoid schizophrenia F20.0 ; Posttraumatic stress disorder F43.10 and Attention deficit hyperactivity disorder (ADHD), inattentive type, 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 [facility] [id number], [place] [address]- [address] Jul, [facility] [id number] [place] [address] 12083- 1114 Jun, Paranoid schizophrenia F20.0 ; Posttraumatic stress disorder F43.10 and Attention deficit hyperactivity disorder (ADHD), inattentive type, 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 [facility] [address] [address] Jun, Dental examination Z01.20 [facility] [address] [place] [address] 78642- 7877 Jun, [facility] [id number] [place] [address] 94296- 6129 May, Paranoid schizophrenia F20.0 [facility] [address], [place] [address]- 7946 May, Paranoid schizophrenia F20.0 ; Posttraumatic stress disorder F43.10 and Attention deficit hyperactivity disorder (ADHD), inattentive type, 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 [facility] [address], [place] [address]- 2642 May, [facility] [id number], [place] [address]- 5679 May, Paranoid schizophrenia F20.0 [facility] [address], [place] [address]- 2799 May, [facility] [id number], [place] [address]- 1404 May, Paranoid schizophrenia F20.0 [facility] [id number] [place] [address]- 2834 May, Schizoaffective disorder, unspecified F25.9 [facility] [id number], [place] [address]- 4[address] May, Schizoaffective disorder, unspecified F25.9 [facility] [address] [facility] [id number], [place] [address]- [address] May, [facility] [address] [facility] [id number], [place] [address]- 8604 May, Paranoid schizophrenia F20.0 [facility] [id number] [address]- 8182 May, Paranoid schizophrenia F20.0 ; Posttraumatic stress disorder F43.10 and Attention deficit hyperactivity disorder (ADHD), inattentive type, 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 [facility] [address] [facility] [id number], [place] [address] Mar, [facility] [id number], [place] [address]- 5932 Mar, Paranoid schizophrenia F20.0 ; Posttraumatic stress disorder F43.10 and Attention deficit hyperactivity disorder (ADHD), inattentive type, 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 [facility] [id number], [place] [address]- 2870 Mar, Paranoid schizophrenia F20.0 [facility] [id number], [place] [address]- 8925 Mar, Paranoid schizophrenia F20.0 ; Attention deficit hyperactivity disorder (ADHD), inattentive type, 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 and Posttraumatic stress disorder F43.10 [facility] [id number], [place] [address] 5[address] Mar, [facility] [id number], [place] [address]- 6780 Mar, Paranoid schizophrenia F20.0 ; Posttraumatic stress disorder F43.10 and Attention deficit hyperactivity disorder (ADHD), inattentive type, 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 [facility] [address] [facility] [id number], [place] [address]- [address]169 February, [facility] [id number], [place] [address]- 1554 February, [facility] [address] [address] February, [facility] [id number] [place] [address] 15437- 2492 February, [facility] [id number] [place] [address] 35632- 2441 Jan, Paranoid schizophrenia F20.0 [facility] [id number] [place] [address] [id number] Jan, Dental examination Z01.20 [facility] [id number] [place] [address] [phone] Jan, Dental caries K02.9 [facility] [id number] [place] [address] [phone] Jan, Dental examination Z01.20 [facility] [id number] [place] [address] [phone] Dec, Encounter for dental examination Z01.20 [facility] [id number] [place] [address] 10374- 4835 Dec, Paranoid schizophrenia F20.0 [facility] [id number] [place] [address] [phone] Dec, Dental examination Z01.20 [facility] [id number] [place] [address] 20639- 4231 Dec, [facility] [id number] [place] [address] 22032- 3990 Dec, Paranoid schizophrenia F20.0 ; Posttraumatic stress disorder F43.10 and Attention deficit hyperactivity disorder (ADHD), inattentive type, 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 [facility] [id number] [place] [address] 90322- 8815 Nov, Schizoaffective disorder, unspecified F25.9 [facility] [address], [place] [address]- 3445 Oct, Paranoid schizophrenia F20.0 [place] [address], [place] [address]- 3495 Oct, [facility] [id number] [place] [address] 84233- 5526 Sep, Paranoid schizophrenia F20.0 ; Posttraumatic stress disorder F43.10 and Attention deficit hyperactivity disorder (ADHD), inattentive type, 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 [facility] [address] [place] [address] 63521- 0047 Sep, [facility] [address] [place] [address] 09844- 1200 Sep, Paranoid schizophrenia F20.0 ; Posttraumatic stress disorder F43.10 and Attention deficit hyperactivity disorder (ADHD), inattentive type, 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 [facility] [address], [place] [address]- 8815 Aug, Paranoid schizophrenia F20.0 [facility] [address], [place] [address]- 3490 Aug, [facility] [address] [place] [address] 95694- 5798 Aug, Posttraumatic stress disorder F43.10 ; Paranoid schizophrenia F20.0 and Attention deficit hyperactivity disorder (ADHD), inattentive type, 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 [facility] [address], [place] [address]- 3636 Jul, Bipolar disorder, unspecified F31.9 [facility] [address], [place] [address]- 4992 Jul, [facility] [id number] [place] [address] 25507- 5549 Jun, [facility] [address] [place] [address] 18773- 4919 Jun, Schizoaffective disorder, chronic 295.72 ; Posttraumatic stress disorder 309.81 and Attention deficit disorder 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 314.00 [facility] [address], [place] [address]- 8587 May, [facility] [address], [place] [address]- 8085 May, [facility] [address], [place] [address]- 0402 May, Schizoaffective disorder, chronic 295.72 ; Posttraumatic stress disorder 309.81 ; Attention deficit disorder 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 314.00 and Bipolar disorder, unspecified 296.80 [facility] [address], [place] [address]- 4311 Apr, Schizoaffective disorder, chronic 295.72 [facility] [address] [place] [address] 45609- 0238 Apr, [facility] [address] [place] [address] 41859- 2622 Apr, Schizoaffective disorder, chronic 295.72 ; Posttraumatic stress disorder 309.81 and Attention deficit disorder 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 314.00 [facility] [address], [place] [address]- 4427 Mar, Disorganized schizophrenia, 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 [facility] [address], [place] [address]- 9656 Mar, [facility] [address], [place] [address]- 8434 Mar, [facility] [address], [place] [address]- 5622 Mar, [facility] [address], [place] [address]- 4055 Mar, [facility] [address], [place] [address]- 0126 February, Schizoaffective disorder, chronic 295.72 [facility] [address] [place] [address] 50654- 1465 February, [facility] [id number] 4328 February, Attention deficit disorder 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 314.00 ; Posttraumatic stress disorder 309.81 and Schizoaffective disorder, chronic 295.72 [facility] [address], [place] [address]- 9587 Jan, [facility] [id number] [place] [address] 775929- 9071 Jan, [facility] [address], [place] [address]- 8723 Jan, [facility] [id number] [place] [address] [id number] Dec, [facility] [id number] [address] Dec, [facility] [id number] [address] Dec, [facility] [id number] [address] Dec, [facility] [id number] [address] Dec, [facility] [facility] [id number] [address] Dec, [facility] [id number], [place] [address] Dec, [facility] [id number] [address] [address] Dec, [facility] [id number], [place] [address] 359[address] Nov, [facility] [place] [facility] [id number], [place] [address] Nov, [facility] [id number] [place] [address] Nov, 2014 [facility] [place] [facility] [address] [id number] [place] [address] 1756 Nov, 2014 [facility] [place] [facility] [address] [id number] [place] [address] 2546 Nov, 2014 [facility] [place] [facility] [address] [id number] [place] [address]- 5576 Nov, 2014 [facility] [place] [facility] [address] [id number] [place] [address]- 2549 Nov, 2014 [facility] [place] [facility] [address] [id number] [place] [address]- 4346 Nov, 2014 [facility] [place] [facility] [address] [facility] [id number] [place] [address]- 0545 Nov, [facility] [place] [facility] [address] [id number] [place] [address]- 2013 Nov, [facility] [place] [facility] [address] [id number] [place] [address]- 5815 Oct, [facility] [place] [facility] [address] [facility] [id number] [place] [address]- 8050 Oct, [facility] [place] [facility] [address] [facility] [id number] [place] [address]- 4221 Oct, [facility] [place] [facility] [address] [id number] [place] [address]- 2549 Oct, [facility] [place] [facility] [address] [id number] [place] [address]- 2544 Oct, [facility] [place] [facility] [address] [id number] [place] [address]- 2546 Oct, [facility] [place] [facility] [address] [facility] [id number] [place] [address]- 2546 Oct, [facility] [place] [facility] [address] [id number] [place] [address]- 0532 17 Sep, 2014 [facility] [place] [facility] [address] [id number] [place] [address]- 4447 17 Sep, 2014 [facility] [place] [facility] [address] [id number] [place] [address]- 8851 15 Sep, 2014 [facility] [place] [facility] [address] [id number] [place] [address]- 2668 15 Sep, 2014 [facility] [place] [facility] [address] [id number] [place] [address]- 0400 Aug, [facility] [place] [facility] [address] [id number] [place] [address]- 9515 Aug, [facility] [place] [facility] [address] [id number] [place] [address]- 5658 Aug, [facility] [place] [facility] [address] [id number] [place] [address]- 6904 Aug, [facility] [place] [facility] [address] [id number] [place] [address]- 5460 Aug, [facility] [place] [facility] [address] [id number] [place] [address]- 7990 Aug, [facility] [place] [facility] [address] [id number] [place] [address]- 3246 29 Jul, 2014 [facility] [place] [facility] [address] [id number], [place] [address] 65[address] 29 Jul, 2014 [facility] [place] [facility] [address] [id number], [place] [address]- 7291 24 Jul, 2014 [facility] [place] [facility] [address] [id number] [place] [address]- 1598 24 Jul, 2014 [facility] [place] [facility] [address] [id number], [place] [address] 9475 15 Jul, 2014 [facility] [place] [facility] [address] [id number], [place] [address] 0676 15 Jul, 2014 [facility] [place] [facility] [address] [id number] [place] [address]- 1674 27 Sep, 2013 [facility] [place] [facility] [address] [id number] [place] [address] 2546 27 Sep, 2013 [facility] [place] [facility] [address] [id number] [place] [address] 2546 26 Jun, 2013 [facility] [place] [facility] [address] [id number] [place] [address] 2546 26 Jun, 2013 [facility] [place] [facility] [address] [id number] [place] [address] 2546 26 Jun, 2013 [facility] [place] [facility] [address] [id number] [place] [address]- 9720 26 Jun, 2013 [facility] [place] [facility] [address] [id number] [place] [address] 2546 16 Jun, 2013 [facility] [place] [facility] [address] [id number] [place] [address]- 7266 16 Jun, 2013 [facility] [place] [facility] [address] [id number] [place] [address] 2543 16 Jun, 2013 [facility] [place] [facility] [address] [id number] [place] [address] 2540 16 Jun, 2013 [facility] [place] [facility] [address] [id number] [place] [address] 254 04 Jun, 2013 [facility] [place] [facility] [address] [id number] [place] [address] 254 May, [facility] [place] [facility] [address] [id number] [place] [address] 2540 May, [facility] [place] [facility] [address] [id number] [place] [address]- 6622 May, [facility] [place] [facility] [address] [id number] [place] [address]- 2541 May, [facility] [place] [facility] [address] [id number] [place] [address]- 9279 May, [facility] [place] [facility] [address] [id number] [place] [address]- 1122 May, [facility] [place] [facility] [address] [id number] [place] [address]- 6824 May, [facility] [place] [facility] [address] [id number] [place] [address]- 0102 May, [facility] [place] [facility] [address] [id number] [place] [address]- 5502 May, [facility] [place] [facility] [address] [id number] [place] [address]- 9611 May, [facility] [place] [facility] [address] [id number] [place] [address]- 9594 Apr, [facility] [place] [facility] [address] [id number] [place] [address]- 3641 Apr, [facility] [place] [facility] [address] [id number] [place] [address]- 2478 Apr, [facility] [place] [facility] [address] [id number] [place] [address]- 2037 Apr, [facility] [place] [facility] [address] [id number] [place] [address]- 4367 Apr, [facility] [place] [facility] [address] [id number] [place] [address]- 8126 Apr, [facility] [place] [facility] [address] [id number] [place] [address]- 6146 Apr, [facility] [place] [facility] [address] [id number] [place] [address]- 7952 Apr, [facility] [place] [facility] [address] [id number] [place] [address]- 8978 Apr, [facility] [place] [facility] [address] [id number] [place] [address]- 7222 Apr, [facility] [place] [facility] [address] [id number] [place] [address]- 0398 Mar, [facility] [place] [facility] [address] [id number] [place] [address]- 5495 Mar, [facility] [place] [facility] [address] [id number] [place] [address]- 6947 Mar, [facility] [place] [facility] [address] [id number] [place] [address]- 6099 24 Mar, 2014 [facility] [place] [facility] [address] [id number] [place] [address]- 5661 20 Mar, 2014 [facility] [place] [facility] [address] [id number] [place] [address]- 8644 18 Mar, 2014 [facility] [place] [facility] [address] [id number] [place] [address]- 5688 18 Mar, 2014 [facility] [place] [facility] [address] [id number] [place] [address]- 0579 16 Mar, 2014 [facility] [place] [facility] [address] [id number] [place] [address]- 9968 16 Mar, 2014 [facility] [place] [facility] [address] [id number] [place] [address]- 8774 Mar, [facility] [place] [facility] [address] [id number] [place] [address]- 4897 Mar, [facility] [place] [facility] [address] [id number] [place] [address]- 8386 Mar, [facility] [place] [facility] [address] [id number] [place] [address]- 5447 Mar, [facility] [place] [facility] [address] [id number] [place] [address]- 6610 10 Mar, 2014 [facility] [place] [facility] [address] [id number] [place] [address]- 2339 09 Mar, 2014 [facility] [place] [facility] [address] [id number] [place] [address]- 3418 09 Mar, 2014 [facility] [place] [facility] [address] [id number] [place] [address]- 9051 Mar, [facility] [address] [id number] [place] [address]- 6071 Mar, [facility] [place] [facility] [address] [id number] [place] [address]- 3600 Mar, [facility] [address] [id number] [place] [address]- 8004 Mar, [facility] [place] [facility] [address] [id number] [place] [address]- 5105 February, [facility] [address] [id number] [place] [address]- 7979 February, [facility] [address] [id number] [place] [address]- 6072 February, [facility] [address] [id number] [place] [address]- 8657 February, [facility] [address] [id number] [place] [address]- 5649 February, [facility] [address] [id number] [place] [address]- 1947 February, [facility] [address] [id number] [place] [address]- 2309 February, [facility] [place] [facility] [address] [id number] [place] [address]- 4947 February, [facility] [address] [id number] [place] [address]- 2351 February, [facility] [place] [facility] [address] [id number] [place] [address]- 6400 February, [facility] [place] [facility] [address] [id number] [place] [address]- 5280 February, [facility] [facility] [address] [id number] [place] February, [facility] [place] [facility] [address] [id number] [place] [address]- 0423 February, [facility] [place] [facility] [address] [id number] [place] [address]- 6062 February, [facility] [place] [facility] [address] [id number] [place] [address]- 9698 February, [facility] [place] [facility] [address] [id number] [place] [address]- 4289 February, [facility] [place] [facility] [address] [id number] [place] [address]- 4237 February, [facility] [place] [facility] [address] [id number] [place] [address]- 2742 February, [facility] [place] [facility] [address] [id number] [place] [address]- 5792 February, [facility] [place] [facility] [address] [id number] [place] [address]- 2598 February, [facility] [place] [facility] [address] [id number] [place] [address]- 8503 February, [facility] [place] [facility] [address] [id number] [place] [address]- 8891 Jan, [facility] [place] [facility] [address] [id number] [place] [address]- 2316 Jan, [facility] [place] [facility] [address] [id number] [place] [address]- 3743 Jan, [facility] [place] [facility] [address] [id number] [place] [address]- 5529 Jan, [facility] [place] [facility] [address] [id number] [place] [address]- 7234 Jan, [facility] [place] [facility] [address] [id number] [place] [address]- 0555 Jan, [facility] [place] [facility] [address] [id number], [place] [address]- 1392 10 Jan, 2014 [facility] [place] [facility] [address] [id number] [place] [address]- 0924 10 Jan, 2014 [facility] [place] [facility] [address] [id number] [place] [address]- 3344 21 Dec, 2013 [facility] [place] [facility] [address] [facility] [id number] [place] [address]- 1980 20 Dec, 2013 [facility] [place] [facility] [address] [facility] [id number] [place] [address]- 2454 20 Dec, 2013 [facility] [place] [facility] [address] [id number] [place] [address]- 3164 19 Dec, 2013 [facility] [place] [facility] [address] [facility] [id number] [place] [address]- 2172 19 Dec, 2013 [facility] [place] [facility] [address] [facility] [id number] [place] [address]- 9601 15 Dec, 2013 [facility] [place] [facility] [address] [facility] [id number] [place] [address]- 9597 15 Dec, 2013 [facility] [place] [facility] [address] [facility] [id number] [place] [address]- 8120 11 Dec, 2013 [facility] [place] [facility] [address] [facility] [id number] [place] [address]- 7847 10 Dec, 2013 [facility] [place] [facility] [address] [facility] [id number] [place] [address]- 9304 10 Dec, 2013 [facility] [place] [facility] [address] [facility] [id number] [place] [address]- 0606 18 Nov, 2013 [facility] [place] [facility] [address] [id number] [place] [address]- 8520 17 Nov, 2013 [facility] [place] [facility] [address] [facility] [id number] [place] [address]- 6646 17 Nov, 2013 [facility] [place] [facility] [address] [facility] [id number] [place] [address]- 5722 05 Nov, 2013 [facility] [place] [facility] [address] [id number] [place] [address]- 5857 Nov, [facility] [place] [facility] [address] [id number] [place] [address]- 8872 Oct, [facility] [place] [facility] [address] [id number] [place] [address]- 5978 Oct, [facility] [place] [facility] [address] [id number] [place] [address]- 2295 Oct, [facility] [place] [facility] [address] [id number] [place] [address]- 8865 Sep, [facility] [place] [facility] [address] [id number] [place] [address]- 1550 Sep, [facility] [address] [id number] [place]50 Sep, [facility] [place] [facility] [address] [id number] [place] [address]- 6809 Sep, [facility] [place] [facility] [address] [id number] [place] [address]- 3052 Aug, [facility] [place] [facility] [address] [id number] [place] [address]- 6449 Aug, [facility] [place] [facility] [address] [id number] [place] [address]- 8921 Jul, [facility] [place] [facility] [address] [id number], [place] [address]- 6121 Jul, [facility] [place] [facility] [address] [id number] [place] [address]- 2059 Jul, [facility] [place] [facility] [address] [id number] [place] [address]- 3640 Jul, [facility] [place] [facility] [address] [id number] [place] [address]- 1274 Jul, [facility] [place] [facility] [address] [id number], [place] [address]- 5862 25 Jun, 2013 [facility] [place] [facility] [address] [id number] [place] [address]- 0371 25 Jun, 2013 [facility] [place] [facility] [address] [id number] [place] [address]- 8036 19 Jun, 2013 [facility] [place] [facility] [address] [id number] [place] [address]- 5396 18 Jun, 2013 [facility] [place] [facility] [address] [id number] [place] [address] 2549 16 Jun, 2013 [facility] [place] [facility] [address] [id number] [place] [address]- 6628 12 Jun, 2013 [facility] [place] [facility] [address] [id number] [place] [address]- 7752 11 Jun, 2013 [facility] [place] [facility] [address] [id number] [place] [address]- 5314 May, [facility] [place] [facility] [address] [id number] [place] [address]- 8945 May, [facility] [place] [facility] [address] [id number] [place] [address]- 0183 Apr, [facility] [place] [facility] [address] [id number] [place] [address]- 2958 Apr, [facility] [place] [facility] [address] [id number] [place] [address]- 8949 Apr, [facility] [place] [facility] [address] [id number] [place] [address]- 8895 Mar, [facility] [place] [facility] [address] [id number] [place] [address]- 7739 Mar, [facility] [place] [facility] [address] [id number] [place] [address]- 1492 February, [facility] [place] [facility] [address] [id number] [place] [address]- 8255 February, [facility] [place] [facility] [address] [id number] [place] [address]- 6958 February, [facility] [address] [id number] [place] [address]- 6203 February, [facility] [address] [id number] [place] [address]- 8832 Jan, [facility] [address] [id number] [place] [address]- 3904 Jan, [facility] [address] [id number] [place] [address]- 3784 Jan, [facility] [address] [id number] [place] [address]- 5057 29 Dec, 2012 [facility] [address] [id number] [place] [address]- 9434 Dec, [facility] [address] [id number] [place] [address]- 1721 Dec, [facility] [address] [id number] [place] [address]- 0542 Dec, [facility] [address] [id number] [place] [address]- 5623 Nov, [facility] [address] [id number] [place] [address]- 9126 Nov, [facility] [address] [id number] [place] [address]- 0252 Oct, [facility] [address] [id number] [place] [address]- 1251 Oct, [facility] [address] [id number] [place] [address]- 6780 Oct, [facility] [address] [id number] [place] [address]- 6766 Oct, [facility] [address] [id number] [place] [address]- 8491 Aug, [facility] [place] [facility] [address] [id number] [place] [address]- 3089 Aug, [facility] [place] [facility] [address] [id number] [place] [address]- 4025 Jun, [facility] [place] [facility] [address] [id number] [place] [address]- 4250 May, [facility] [place] [facility] [address] [id number] [place] [address]- 7219 May, [facility] [place] [facility] [address] [id number] [place] [address]- 9945 Apr, [facility] [place] [facility] [address] [id number] [place] [address]- 5550 Apr, [facility] [place] [facility] [address] [id number] [place] [address]- 5535 Apr, [facility] [place] [facility] [address] [id number] [place] [address] Mar, [facility] [place] [facility] [address] [id number] [place] [address] Mar, [facility] [place] [facility] [address] [id number] [place] [address] Mar, [facility] [place] [facility] [address] [id number] [place] [address] Mar, [facility] [place] [facility] [address] [id number], [place] [address] Mar, [facility] [place] [facility] [address] [id number] [place] [address] February, [facility] [place] [facility] [address] [id number] [place] [address] February, [facility] [place] [facility] [address] [id number] [place] [address] February, [facility] [place] [facility] [address] [id number] [place] [address]- [address] 16 Feb, 2012 [facility] [address] [id number] [place] [address] February, [facility] [place] [facility] [address] [id number] [place] [address]- [address] February, [facility] [address] [id number] [place] [address]- [address] February, [facility] [place] [facility] [address] [id number] [place] [address]- [address] 25 Jan, 2012 [facility] [address] [id number] [place] [address]- [address] 18 Jan, 2012 [facility] [place] [facility] [address] [id number] [place] [address]- [address] 17 Jan, 2012 [facility] [address] [id number] [place] [address]- [address] 13 Jan, 2012 [facility] [address] [id number] [place] [address]- [address] 10 Jan, 2012 [facility] [place] [facility] [address] [id number] [place] [address]- [address]690 04 Jan, 2012 [facility] [address] [id number] [place] [address]- [address] 30 Dec, 2011 [facility] [place] [facility] [address] [id number] [place] [address]- [address] 24 Dec, 2011 [facility] [place] [facility] [address] [id number] [place] [address]- [address] 20 Dec, 2011 [facility] [place] [facility] [address] [id number] [place] [address]- 7742 13 Dec, 2011 [facility] [place] [facility] [address] [id number] [place] [address]- [address] 06 Dec, 2011 [facility] [place] [facility] [address] [id number] [place] [address]- [address] 28 Nov, 2011 [facility] [place] [facility] [address] [id number] [place] [address]- [address] Nov, [facility] [place] [facility] [address] [id number] [place] [address]- [address] Nov, [facility] [place] [facility] [address] [id number] [place] [address]- [address] Nov, [facility] [place] [facility] [address] [id number] [place] [address]- [address] Nov, [facility] [place] [facility] [address] [id number] [place] [address]- [address] Nov, [facility] [place] [facility] [address] [id number] [place] [address]- [address] Oct, [facility] [place] [facility] [address] [id number] [place] [address]- [address] Oct, [facility] [place] [facility] [address] [id number] [place] [address]- [address] Oct, [facility] [place] [facility] [address] [id number] [place] [address]- [address] Oct, [facility] [place] [facility] [address] [id number] [place] [address]- [address] Oct, [facility] [place] [facility] [address] [id number] [place] [address]- [address] Sep, [facility] [place] [facility] [address] [id number] [place] [address] Sep, [facility] [place] [facility] [address] [id number] [place] [address] 2546 Sep, [facility] [place] [facility] [address] [id number] [place] [address]- [address]46 Sep, [facility] [place] [facility] [address] [id number] [place] [address]- 3096 Sep, [facility] [place] [facility] [address] [id number] [place] [address]- [address] 13 Sep, 2011 [facility] [place] [facility] [address] [id number] [place] [address]- [address] Sep, [facility] [place] [facility] [address] [id number] [place] [address]- [address]67 Sep, [facility] [place] [facility] [address] [id number] [place] [address]- 8411 Sep, [facility] [place] [facility] [address] [id number] [place] [address]- [address]79 Aug, [facility] [place] [facility] [address] [id number] [place] [address]- 0438 Aug, [facility] [place] [facility] [address] [id number] [place] [address]- 8783 Aug, [facility] [place] [facility] [address] [id number] [place] [address]- 74[address] Aug, [facility] [place] [facility] [address] [id number] [place] [address]- 8814 Aug, [facility] [place] [facility] [address] [id number] [place] [address]- 1458 Aug, [facility] [place] [facility] [address] [id number] [place] [address]- 1734 Aug, [facility] [place] [facility] [address] [id number] [place] [address]- 0791 Aug, [facility] [place] [facility] [address] [id number], [place] [address] Aug, [facility] [place] [facility] [address] [id number] [place] [address]- [address] Aug, [facility] [place] [facility] [address] [id number] [place] [address]- 9[address] Aug, [facility] [place] [facility] [address] [id number], [place] [address] Aug, [facility] [place] [facility] [address] [id number] [place] [address]- 47[address] Jul, [facility] [place] [facility] [address] [id number] [place] [address]- 9768 Jul, [facility] [place] [facility] [address] [id number] [place] [address]- 4147 Jul, [facility] [place] [facility] [address] [id number] [place] [address]- 0[address] Jul, [facility] [place] [facility] [address] [id number] [place] [address]- 8008 Jul, [facility] [place] [facility] [address] [id number] [place] [address] 1979 Jul, [facility] [place] [facility] [address] [id number] [place] [address]- 2081 Jul, [facility] [place] [facility] [address] [id number] [place] [address]- [address] Jul, [facility] [place] [facility] [address] [id number] [place] [address]- [address] Jul, [facility] [place] [facility] [address] [id number] [place] [address]- [address]44 Jul, [facility] [place] [facility] [address] [id number] [place] [address]- [address] Nov, [facility] [place] [facility] [address] [id number] [place] [address]- [address]857 Aug, [facility] [place] [facility] [address] [id number] [place] [address]- [address] Aug, [facility] [place] [facility] [address] [id number] [place] [address] Aug, [facility] [place] [facility] [address] [id number] [place] [address] Aug, [facility] [place] [facility] [address] [id number] [place] [address] Jul, IMMUNIZATIONS No Known Immunizations SOCIAL HISTORY Never Assessed REASON FOR VISIT f/u-HUI garcia PLAN OF CARE Activity Details Follow Up 3 Weeks Reason: f/u VITAL SIGNS Height 65.75 in 2018-04-27 Weight 188.7 lbs 2018-04-27 Heart Rate 105 bpm 2018-04-27 Respiratory Rate 20 2018-04-27 BMI 30.69 kg/m2 2018-04-27 Blood pressure systolic 100 mmHg 2018-04-27 Blood pressure diastolic 64 mmHg 2018-04-27 MEDICATIONS Medication Instructions Dosage Frequency Start Date End Date Duration Status Ativan 1 MG Orally 2 times a day as needed 1 tablet Active Levothyroxine Sodium 75 MCG Orally Once a day 1 tablet on an empty stomach in the morning 24h Active Insulin Detemir 100 unit/mL (3 mL) Subcutaneous at bedtime 75 units by Subcutaneous route 1 time per day [facility] February, Active Trileptal 300 MG Orally 3 times a day 1 tablet 8h 30 days Active Trintellix 20 mg orally Once a day 1 tablet 24h Active Allergy 4 MG Orally every 6 hrs 1 tablet as needed 6h Active Nitrofurantoin Monohyd Macro 100 MG Orally every 12 hrs 1 capsule with food 12h Not-Taking Topamax 100 mg Orally Twice a day 1.5 tablet 12h Active NovoLog Mix 70/30 (70-30) 100 UNIT/ML Subcutaneous 3 times a day 27 units 8h Active Levemir 100 UNIT/ML Subcutaneous at bedtime 70 units Active Seroquel 300 MG Orally Once a day at bedtime for sleep 1 tablet Active Metformin HCl 1000 MG Orally 2 times a day 1 tablet 12h Not-Taking Hydrocodone-Acetaminophen 10-325 mg 1 Tablet by Oral route every 8 hours PRN pain Jul, Active Abilify 30 MG Orally Once a day 1 tablet 24h Active Cyproheptadine HCl 4 MG Orally Twice a day 1 tablet 12h 30 days Active Intuniv 1 MG Orally 2 times a day 1 tablet 12h Active Ventolin HFA 90 MCG/ACT Inhalation every 6 hrs 2 puffs as needed 6h Active RESULTS No Results PROCEDURES Procedure Date Ordered Result Body Site [facility] VISIT ESTABLISHED PATIENT April 27, 2018 INSTRUCTIONS MEDICATIONS ADMINISTERED No Known Medications MEDICAL (GENERAL) HISTORY Type Description Date Medical History diabetes Medical History thyroid Surgical History appendix Surgical History gallbladder Surgical History eyes Surgical History hip Surgical History MRI on back and pelvis 06/08 Hospitalization History surgeries Hospitalization History [facility] Suicide attempt by hanging 06/14/2016 Hospitalization History [facility] 01/30/2018-02/10/2008 Hospitalization History [facility]/SI 05/04/18-05/09/18
--- OUTSIDE RECORDS SUMMARY | 2018-08-15 20:18 | XMS REPORT ---
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 09078052 Problem Schizoaffective disorder, depressive type F25.1 Active 85293344 Problem Borderline personality disorder F60.3 Active 16502920 Problem Attention deficit hyperactivity disorder (ADHD), inattentive type, 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 16044063 Problem Schizoaffective disorder, unspecified F25.9 Active 35707020 Problem High risk medication use Z79.899 Active 071190502 Problem Posttraumatic stress disorder F43.10 Active 38684004 Problem Obsessive-compulsive disorders 300.3 Active 164412632 Problem Generalized anxiety disorder 300.02 Active 06882621 Problem Attention deficit disorder 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 314.00 Active 14557092 Problem Bipolar disorder, unspecified 296.80 Active 59915931 Problem Posttraumatic stress disorder 309.81 Active 21874648 Problem Paranoid schizophrenia, unspecified condition 295.30 Active [id number] ALLERGIES No Information ENCOUNTERS Encounter Location Date Diagnosis [facility] [address] [facility] [id number] [address] Jul, [facility] [id number] [place] [address] 7569 May, Paranoid schizophrenia F20.0 ; Posttraumatic stress disorder F43.10 ; Attention deficit hyperactivity disorder (ADHD), inattentive type, 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 and Borderline personality disorder F60.3 [facility] [id number] [place] [address] 80985- 4485 May, [facility] [address] [facility] [id number], [place] [address] 0656 May, Paranoid schizophrenia F20.0 [facility] [address] [id number], [place] [address] 6[address] May, Paranoid schizophrenia F20.0 ; Posttraumatic stress disorder F43.10 ; Attention deficit hyperactivity disorder (ADHD), inattentive type, 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 and Borderline personality disorder F60.3 [facility] [address] [id number], [place] [address] Apr, [facility] [address] [id number], [place] [address]26 Apr, Paranoid schizophrenia F20.0 ; Posttraumatic stress disorder F43.10 ; Attention deficit hyperactivity disorder (ADHD), inattentive type, 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 and Borderline personality disorder F60.3 [facility] [address], [place] [address] Apr, [facility] [address] [id number], [place] [address] 9562 Apr, Schizoaffective disorder, depressive type F25.1 and Borderline personality disorder F60.3 [facility] [address] [id number], [place] [address] 6[address] Apr, Paranoid schizophrenia F20.0 ; Posttraumatic stress disorder F43.10 ; Attention deficit hyperactivity disorder (ADHD), inattentive type, 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 and Borderline personality disorder F60.3 [facility] [address] [facility] [id number], [place] [address] Apr, [facility] [address] [id number], [place] [address] 7844 Apr, Paranoid schizophrenia F20.0 ; Posttraumatic stress disorder F43.10 ; Attention deficit hyperactivity disorder (ADHD), inattentive type, 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 and Borderline personality disorder F60.3 [facility] [address], [place] [address] Apr, [facility] [address], [place] [address] 6552 Mar, Paranoid schizophrenia F20.0 [facility] [address] [address] Mar, [facility] [address] [address] 4328 Mar, Paranoid schizophrenia F20.0 ; Posttraumatic stress disorder F43.10 ; Attention deficit hyperactivity disorder (ADHD), inattentive type, 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 and Borderline personality disorder F60.3 [facility] [address], [place] [address] 8[address] February, Paranoid schizophrenia F20.0 [facility] [address] [address] 9960 February, Paranoid schizophrenia F20.0 ; Posttraumatic stress disorder F43.10 ; Attention deficit hyperactivity disorder (ADHD), inattentive type, 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 and Borderline personality disorder F60.3 [facility] [address] [address] 27[address] February, Paranoid schizophrenia F20.0 ; Posttraumatic stress disorder F43.10 ; Attention deficit hyperactivity disorder (ADHD), inattentive type, 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 and Borderline personality disorder F60.3 [facility] [address], [place] [address] 79[address] February, [facility] [address], [place] [address] 9204 February, Paranoid schizophrenia F20.0 [facility] [address] [address] 1083 February, Paranoid schizophrenia F20.0 [facility] [address] [id number], [place] [address] 3[address] February, Paranoid schizophrenia F20.0 ; Posttraumatic stress disorder F43.10 ; Attention deficit hyperactivity disorder (ADHD), inattentive type, 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 and Borderline personality disorder F60.3 [facility] [address], [place] [address] 0286 Jan, Paranoid schizophrenia F20.0 ; Posttraumatic stress disorder F43.10 ; Attention deficit hyperactivity disorder (ADHD), inattentive type, 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 and Borderline personality disorder F60.3 [facility] [id number] [place] [address] 16021- 7337 Jan, Paranoid schizophrenia F20.0 [facility] [id number] [place] [address] 95875- 4391 Jan, Paranoid schizophrenia F20.0 [facility] [id number], [place] [address] 2097 Jan, Paranoid schizophrenia F20.0 ; Posttraumatic stress disorder F43.10 ; Attention deficit hyperactivity disorder (ADHD), inattentive type, 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 and Borderline personality disorder F60.3 [facility] [address], [place] [address] 67[address] Dec, [facility] [address], [place] [address]- 2889 Nov, Paranoid schizophrenia F20.0 ; Posttraumatic stress disorder F43.10 ; Attention deficit hyperactivity disorder (ADHD), inattentive type, 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 and Borderline personality disorder F60.3 [facility] [address], [place] [address]- 3958 Nov, [facility] [address], [place] [address]- 6432 Oct, Paranoid schizophrenia F20.0 [facility] [address] [id number], [place] [address]- 8363 Oct, Paranoid schizophrenia F20.0 ; Posttraumatic stress disorder F43.10 ; Attention deficit hyperactivity disorder (ADHD), inattentive type, 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 ; Borderline personality disorder F60.3 and Other manager intermediate ( 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 Z79.899 [facility] [address], [place] [address]- 80[address] Oct, [facility] [address], [place] [address]- 7296 Oct, [facility] [address], [place] [address]- 8777 Sep, [facility] [address], [place] [address]- 5228 Sep, Paranoid schizophrenia F20.0 ; Posttraumatic stress disorder F43.10 ; Attention deficit hyperactivity disorder (ADHD), inattentive type, 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 and Borderline personality disorder F60.3 [facility] [address], [place] [address]- 0120 Sep, Paranoid schizophrenia F20.0 [facility] [address], [place] [address]- 1331 Aug, Paranoid schizophrenia F20.0 ; Posttraumatic stress disorder F43.10 ; Attention deficit hyperactivity disorder (ADHD), inattentive type, 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 and Borderline personality disorder F60.3 [facility] [address], [place] [address]- 2906 Aug, Paranoid schizophrenia F20.0 ; Posttraumatic stress disorder F43.10 ; Attention deficit hyperactivity disorder (ADHD), inattentive type, 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 and Borderline personality disorder F60.3 [facility] [address], [place] [address]- 2399 Aug, [facility] [address], [place] [address]- 4734 Jul, Paranoid schizophrenia F20.0 ; Posttraumatic stress disorder F43.10 ; Attention deficit hyperactivity disorder (ADHD), inattentive type, 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 and Borderline personality disorder F60.3 [facility] [address], [place] [address]- 6861 Jul, Paranoid schizophrenia F20.0 [facility] [address], [place] [address]- 7401 Jul, Paranoid schizophrenia F20.0 ; Posttraumatic stress disorder F43.10 ; Attention deficit hyperactivity disorder (ADHD), inattentive type, 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 and Borderline personality disorder F60.3 [facility] [address], [place] [address]- 6123 Jun, Paranoid schizophrenia F20.0 ; Posttraumatic stress disorder F43.10 ; Attention deficit hyperactivity disorder (ADHD), inattentive type, 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 and Borderline personality disorder F60.3 [facility] [address], [place] [address]- 3418 May, Other mcc (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 Z79.899 [facility] [address], [place] [address]- 6904 May, [facility] [address], [place] [address]- 5037 May, [facility] [address], [place] [address]- 7136 May, Attention deficit hyperactivity disorder (ADHD), inattentive type, 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 [facility] [address], [place] [address]- 8757 May, [facility] [address], [place] [address]- 6169 May, Attention deficit hyperactivity disorder (ADHD), inattentive type, 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 [facility] [address], [place] [address]- 5824 May, Paranoid schizophrenia F20.0 ; Posttraumatic stress disorder F43.10 ; Attention deficit hyperactivity disorder (ADHD), inattentive type, 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 and Other manager intermediate (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 Z79.899 [facility] [id number], [place] [address]- 4967 Apr, Paranoid schizophrenia F20.0 [facility] [address], [place] [address]- 1218 Apr, Paranoid schizophrenia F20.0 ; Posttraumatic stress disorder F43.10 and Attention deficit hyperactivity disorder (ADHD), inattentive type, 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 [facility] [address], [place] [address]- 8335 February, [facility] [address], [place] [address]- 1333 February, Paranoid schizophrenia F20.0 ; Posttraumatic stress disorder F43.10 and Attention deficit hyperactivity disorder (ADHD), inattentive type, 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 [facility] [address], [place] [address]- 7531 February, Paranoid schizophrenia F20.0 ; Posttraumatic stress disorder F43.10 and Attention deficit hyperactivity disorder (ADHD), inattentive type, 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 [facility] [address], [place] [address]- 5410 Jan, Paranoid schizophrenia F20.0 ; Posttraumatic stress disorder F43.10 and Attention deficit hyperactivity disorder (ADHD), inattentive type, 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 [facility] [address] [id number] Dec, Dental examination Z01.20 [facility] [address] [id number] [id number] Nov, Dental examination Z01.20 [facility] [address] [id number] [address] Nov, Dental examination Z01.20 [facility] [address] [address] Nov, Dental caries K02.9 [facility] [address], [place] [address]- 2471 Nov, High risk medication use Z79.899 [facility] [address], [place] [address]- 1352 Nov, Paranoid schizophrenia F20.0 ; Posttraumatic stress disorder F43.10 ; Attention deficit hyperactivity disorder (ADHD), inattentive type, 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 and Borderline personality disorder in adult F60.3 [facility] [address] [place] [id number] Oct, Dental caries K02.9 [facility] [id number] [place] [address] 91104- 4247 Sep, Paranoid schizophrenia F20.0 ; Posttraumatic stress disorder F43.10 and Attention deficit hyperactivity disorder (ADHD), inattentive type, 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 [facility] [id number] [place] [address] 55652- 7912 Aug, Paranoid schizophrenia F20.0 ; Posttraumatic stress disorder F43.10 and Attention deficit hyperactivity disorder (ADHD), inattentive type, 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 [facility] [address], [place] [address] Aug, Strep throat J02.0 and Cough R05 [facility] [id number] [place] [address] 12237- 7457 Aug, [facility] [id number] [place] [address] 31459- 9349 Jul, Paranoid schizophrenia F20.0 ; Posttraumatic stress disorder F43.10 and Attention deficit hyperactivity disorder (ADHD), inattentive type, 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 [facility] [address], [place] [address]- 3241 Jul, [facility] [id number] [place] [address] 36615- 3647 Jun, Paranoid schizophrenia F20.0 ; Posttraumatic stress disorder F43.10 and Attention deficit hyperactivity disorder (ADHD), inattentive type, 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 [facility] [address] [address] Jun, Dental examination Z01.20 [facility] [id number] [place] [address] 52512- 3940 Jun, [facility] [id number] [place] [address] 61675- 7832 May, Paranoid schizophrenia F20.0 [facility] [id number] [place] [address] 75285- 2019 May, Paranoid schizophrenia F20.0 ; Posttraumatic stress disorder F43.10 and Attention deficit hyperactivity disorder (ADHD), inattentive type, 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 [facility] [id number] [place] [address] 58597- 0073 May, [facility] [id number] [place] [address] 27220- 0307 May, Paranoid schizophrenia F20.0 [facility] [address] [place] [address] 22001- 6488 May, [facility] [address] [place] [address] 15397- 4269 May, Paranoid schizophrenia F20.0 [facility] [id number] [place] [address] 00875- 8287 May, Schizoaffective disorder, unspecified F25.9 [facility] [address], [place] [address]- 5933 May, Schizoaffective disorder, unspecified F25.9 [facility] [id number], [place] [address]- 7234 May, [facility] [id number] [place] [address] 92697- 5539 May, Paranoid schizophrenia F20.0 [facility] [id number], [place] [address]- 5192 May, Paranoid schizophrenia F20.0 ; Posttraumatic stress disorder F43.10 and Attention deficit hyperactivity disorder (ADHD), inattentive type, 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 [facility] [address] [id number] [place] [address]- 1556 Mar, [facility] [address] [id number] [place] [address] [address]76 Mar, Paranoid schizophrenia F20.0 ; Posttraumatic stress disorder F43.10 and Attention deficit hyperactivity disorder (ADHD), inattentive type, 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 [facility] [address] [id number] [place] [address]- 3429 Mar, Paranoid schizophrenia F20.0 [facility] [address] [facility] [id number] [place] [address]- 1147 Mar, Paranoid schizophrenia F20.0 ; Attention deficit hyperactivity disorder (ADHD), inattentive type, 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 and Posttraumatic stress disorder F43.10 [facility] [address] [facility] [id number] [place] [address]- 7510 Mar, [facility] [address] [facility] [id number] [place] [address] 4373 Mar, Paranoid schizophrenia F20.0 ; Posttraumatic stress disorder F43.10 and Attention deficit hyperactivity disorder (ADHD), inattentive type, 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 [facility] [address] [id number] [place] [address]- 7833 February, [facility] [address] [facility] [id number] [place] [address]30 February, [facility] [address] [id number] [place] [address]- 2717 February, [facility] [address] [facility] [id number] [place] [address] [address]50 February, [facility] [address] [facility] [id number] [place] [address]- 6572 Jan, Paranoid schizophrenia F20.0 [facility] [place] [facility] [address] [id number] [id number] Jan, Dental examination Z01.20 [facility] [address] [id number] [address] Jan, Dental caries K02.9 [facility] [address] [id number] [address] Jan, Dental examination Z01.20 [facility] [address] [id number] [address] Dec, Encounter for dental examination Z01.20 [facility] [address] [facility] [id number], [place] [address]- 4646 Dec, Paranoid schizophrenia F20.0 [facility] [address] [id number] [address] Dec, Dental examination Z01.20 [facility] [address], [place] [address]- 8867 Dec, [facility] [id number], [place] [address]- 5236 Dec, Paranoid schizophrenia F20.0 ; Posttraumatic stress disorder F43.10 and Attention deficit hyperactivity disorder (ADHD), inattentive type, 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 [facility] [address], [place] [address]- 3883 Nov, Schizoaffective disorder, unspecified F25.9 [facility] [id number], [place] [address]- 9822 Oct, Paranoid schizophrenia F20.0 [facility] [id number], [place] [address]- 6552 Oct, [facility] [id number], [place] [address]- 9060 Sep, Paranoid schizophrenia F20.0 ; Posttraumatic stress disorder F43.10 and Attention deficit hyperactivity disorder (ADHD), inattentive type, 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 [facility] [address] [address] [address]60 Sep, [facility] [id number] [place] [address] 50784- 8061 Sep, Paranoid schizophrenia F20.0 ; Posttraumatic stress disorder F43.10 and Attention deficit hyperactivity disorder (ADHD), inattentive type, 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 [facility] [id number] [place] [address] 53177- 4441 Aug, Paranoid schizophrenia F20.0 [facility] [address], [place] [address]- 9341 Aug, [facility] [id number] [place] [address] 02283- 4099 Aug, Posttraumatic stress disorder F43.10 ; Paranoid schizophrenia F20.0 and Attention deficit hyperactivity disorder (ADHD), inattentive type, 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 [facility] [address] [place] [address] 96684- 8277 Jul, Bipolar disorder, unspecified F31.9 [facility] [address], [place] [address]- 3601 Jul, [facility] [id number], [place] [address]- 7183 Jun, [facility] [address], [place] [address]- 0680 Jun, Schizoaffective disorder, chronic 295.72 ; Posttraumatic stress disorder 309.81 and Attention deficit disorder 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 314.00 [facility] [address], [place] [address]- 9279 May, [facility] [id number] [place] [address] 25018- 6851 May, [facility] [address], [place] [address]- 9479 May, Schizoaffective disorder, chronic 295.72 ; Posttraumatic stress disorder 309.81 ; Attention deficit disorder 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 314.00 and Bipolar disorder, unspecified 296.80 [facility] [address], [place] [address]- 0007 Apr, Schizoaffective disorder, chronic 295.72 [facility] [address], [place] [address]- 0120 Apr, [facility] [id number] [place] [address] 44054- 9352 Apr, Schizoaffective disorder, chronic 295.72 ; Posttraumatic stress disorder 309.81 and Attention deficit disorder 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 314.00 [facility] [address] [place] [address] 93868- 5273 Mar, Disorganized schizophrenia, 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 [facility] [id number], [place] [address]- 7875 Mar, [facility] [id number] [place] [address] 46113- 6494 Mar, [facility] [address], [place] [address]- 5115 Mar, [facility] [address], [place] [address]- 5410 Mar, [facility] [address], [place] [address]- 0850 February, Schizoaffective disorder, chronic 295.72 [facility] [address], [place] [address]- 0860 February, [facility] [address], [place] [address]- 1045 February, Attention deficit disorder 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 314.00 ; Posttraumatic stress disorder 309.81 and Schizoaffective disorder, chronic 295.72 [facility] [address], [place] [address]- 4424 Jan, [facility] [place] [facility] [address] [id number] [place] [address] 14 Jan, 2015 [facility] [place] [facility] [address] [id number] [place] [address] Jan, [facility] [place] [facility] [address] [id number] [place] [address] Dec, [facility] [place] [facility] [address] [id number] [place] [address] Dec, [facility] [place] [facility] [address] [id number] [place] [address] Dec, [facility] [place] [facility] [address] [id number] [place] [address] Dec, [facility] [place] [facility] [address] [id number] [place] [address] Dec, [facility] [place] [facility] [address] [id number] [place] [address] Dec, [facility] [place] [facility] [address] [id number] [place] [address] 5204 Dec, [facility] [place] [facility] [address] [id number] [place] [address] 6883 Dec, [facility] [place] [facility] [address] [id number] [place] [address]13 Nov, [facility] [place] [facility] [address] [id number] [place] [address] 2730 Nov, [facility] [place] [facility] [address] [id number] [place] [address]- 8646 Nov, [facility] [place] [facility] [address] [id number] [place] [address] 7556 Nov, [facility] [place] [facility] [address] [id number] [place] [address] 3139 Nov, [facility] [place] [facility] [address] [id number], [place] [address] Nov, [facility] [place] [facility] [address] [id number] [place] [address] 3189 Nov, [facility] [place] [facility] [address] [id number] [place] [address] Nov, [facility] [place] [facility] [address] [id number] [place] [address]- 7351 Nov, [facility] [place] [facility] [address] [id number] [place] [address]- 3750 Nov, [facility] [place] [facility] [address] [id number] [place] [address]- 1669 Oct, [facility] [place] [facility] [address] [id number] [place] [address]- 3825 Oct, [facility] [place] [facility] [address] [id number] [place] [address]- 2413 Oct, [facility] [place] [facility] [address] [id number] [place] [address]- 6236 Oct, [facility] [place] [facility] [address] [id number] [place] [address]- 4104 Oct, [facility] [place] [facility] [address] [facility] [id number] [place] [address]- 5558 Oct, [facility] [place] [facility] [address] [id number] [place] [address]- 4444 Oct, [facility] [place] [facility] [address] [id number] [place] [address]- 5297 Sep, [facility] [place] [facility] [address] [id number] [place] [address]- 3314 Sep, [facility] [place] [facility] [address] [id number] [place] [address]- 0996 Sep, [facility] [place] [facility] [address] [id number] [place] [address]- 1368 Sep, [facility] [place] [facility] [address] [id number] [place] [address]- 0938 Aug, [facility] [place] [facility] [address] [id number] [place] [address]- 5178 Aug, [facility] [place] [facility] [address] [id number] [place] [address]- 0783 Aug, [facility] [place] [facility] [address] [id number] [place] [address]- 5201 Aug, [facility] [place] [facility] [address] [id number] [place] [address]- 5517 Aug, [facility] [place] [facility] [address] [id number] [place] [address]- 7508 Aug, [facility] [place] [facility] [address] [id number] [place] [address]- 4642 Jul, [facility] [place] [facility] [address] [id number] [place] [address]- 7762 Jul, [facility] [place] [facility] [address] [id number] [place] [address]- 3946 Jul, [facility] [place] [facility] [address] [id number] [place] [address]- 8067 Jul, [facility] [place] [facility] [address] [id number] [place] [address]- 5664 Jul, [facility] [place] [facility] [address] [id number] [place] [address]- 7265 Jul, [facility] [place] [facility] [address] [id number] [place] [address]- 0277 Jun, [facility] [place] [facility] [address] [id number] [place] [address]- 2624 27 Jun, 2014 [facility] [place] [facility] [address] [id number] [place] [address]- 4840 26 Jun, 2014 [facility] [place] [facility] [address] [id number] [place] [address]- 9317 Jun, 2013 [facility] [place] [facility] [address] [id number] [place] [address]- 5216 Jun, 2013 [facility] [place] [facility] [address] [id number] [place] [address]- 2986 Jun, [facility] [place] [facility] [address] [id number] [place] [address] 2546 Jun, 2013 [facility] [place] [facility] [address] [id number] [place] [address] 2546 Jun, 2013 [facility] [place] [facility] [address] [id number] [place] [address]- 5142 Jun, 2013 [facility] [place] [facility] [address] [id number] [place] [address]- 5882 Jun, [facility] [place] [facility] [address] [id number] [place] [address]- 1029 Jun, [facility] [place] [facility] [address] [id number] [place] [address]- 8858 May, [facility] [place] [facility] [address] [id number] [place] [address]- 2691 May, [facility] [place] [facility] [address] [id number] [place] [address]- 1133 May, [facility] [place] [facility] [address] [id number] [place] [address]- 6263 May, [facility] [place] [facility] [address] [id number] [place] [address]- 3844 May, [facility] [place] [facility] [address] [id number] [place] [address]- 6975 May, [facility] [place] [facility] [address] [id number] [place] [address]- 6736 May, [facility] [place] [facility] [address] [id number] [place] [address]- 5362 May, [facility] [place] [facility] [address] [id number] [place] [address]- 2078 May, [facility] [place] [facility] [address] [id number] [place] [address]- 5506 May, [facility] [place] [facility] [address] [id number] [place] [address]- 5879 Apr, [facility] [place] [facility] [address] [id number] [place] [address]- 2870 Apr, [facility] [place] [facility] [address] [id number] [place] [address]- 9431 Apr, [facility] [place] [facility] [address] [id number] [place] [address]- 3011 Apr, [facility] [place] [facility] [address] [id number] [place] [address]- 8490 Apr, [facility] [place] [facility] [address] [id number] [place] [address]- 4306 Apr, [facility] [place] [facility] [address] [id number] [place] [address]- 7481 Apr, [facility] [place] [facility] [address] [id number] [place] [address]- 1909 Apr, [facility] [place] [facility] [address] [id number] [place] [address]- 3631 Apr, [facility] [place] [facility] [address] [id number] [place] [address]- 3125 Apr, [facility] [place] [facility] [address] [id number] [place] [address]- 1341 Mar, [facility] [place] [facility] [address] [id number] [place] [address]- 8584 Mar, [facility] [place] [facility] [address] [id number] [place] [address]- 3457 Mar, [facility] [place] [facility] [address] [id number] [place] [address]- 1642 Mar, [facility] [place] [facility] [address] [id number] [place] [address]- 3096 Mar, [facility] [place] [facility] [address] [id number] [place] [address]- 3902 Mar, [facility] [place] [facility] [address] [id number] [place] [address]- 8067 18 Mar, 2014 [facility] [place] [facility] [address] [id number] [place] [address]- 5431 Mar, [facility] [place] [facility] [address] [id number] [place] [address]- 6571 16 Mar, 2014 [facility] [place] [facility] [address] [id number] [place] [address]- 5349 Mar, [facility] [place] [facility] [address] [id number] [place] [address]- 8625 Mar, [facility] [place] [facility] [address] [id number] [place] [address]- 0888 Mar, [facility] [place] [facility] [address] [id number] [place] [address]- 3562 Mar, [facility] [place] [facility] [address] [id number] [place] [address]- 4918 Mar, [facility] [place] [facility] [address] [id number] [place] [address]- 2013 Mar, [facility] [place] [facility] [address] [id number], [place] [address]- 5338 Mar, [facility] [place] [facility] [address] [id number] [place] [address]- 7249 Mar, [facility] [place] [facility] [address] [id number] [place] [address]- 6927 Mar, [facility] [place] [facility] [address] [id number] [place] [address]- 3213 04 Mar, 2014 [facility] [place] [facility] [address] [id number] [place] [address]- 5409 Mar, [facility] [address] [id number] [place] [address]- 0351 February, [facility] [address] [id number] [place] [address]- 0662 February, [facility] [address] [id number] [place] [address]- 4649 February, [facility] [place] [facility] [address] [id number] [place] [address]- 2552 February, [facility] [address] [id number] [place] [address]- 9826 February, [facility] [address] [id number] [place] [address]- 1330 February, [facility] [address] [id number] [place] [address]- 5865 February, [facility] [address] [id number] [place] [address]- 4603 February, [facility] [address] [id number] [place] [address]- 7430 February, [facility] [address] [id number] [place] [address]- 7385 February, [facility] [address] [id number] [place] [address]- 3074 February, [facility] [place] [facility] [address] [id number] [place] [address]- 8726 February, [facility] [place] [facility] [address] [id number] [place] [address]- 4505 February, [facility] [place] [facility] [address] [id number] [place] [address]- 0054 February, [facility] [place] [facility] [address] [id number] [place] [address]- 1981 February, [facility] [place] [facility] [address] [id number] [place] [address]- 8647 February, [facility] [place] [facility] [address] [id number] [place] [address]- 4407 February, [facility] [place] [facility] [address] [id number] [place] [address]- 1503 February, [facility] [place] [facility] [address] [id number] [place] [address]- 8625 February, [facility] [place] [facility] [address] [id number] [place] [address]- 4068 February, [facility] [place] [facility] [address] [id number] [place] [address]- 0761 February, [facility] [place] [facility] [address] [id number] [place] [address]- 8362 Jan, [facility] [place] [facility] [address] [id number] [place] [address]- 0739 Jan, [facility] [place] [facility] [address] [id number] [place] [address]- 0083 Jan, [facility] [place] [facility] [address] [id number] [place] [address]- 3987 Jan, [facility] [place] [facility] [address] [id number] [place] [address]- 1155 Jan, [facility] [place] [facility] [address] [id number] [place] [address]- 6379 Jan, [facility] [place] [facility] [address] [id number] [place] [address]- 9240 Jan, [facility] [place] [facility] [address] [id number] [place] [address]- 5305 Jan, [facility] [place] [facility] [address] [id number] [place] [address]- 2844 Dec, [facility] [place] [facility] [address] [id number] [place] [address]- 4711 20 Dec, 2013 [facility] [place] [facility] [address] [id number] [place] [address]- 8737 20 Dec, 2013 [facility] [place] [facility] [address] [id number] [place] [address]- 6039 19 Dec, 2013 [facility] [place] [facility] [address] [id number] [place] [address]- 2433 19 Dec, 2013 [facility] [place] [facility] [address] [id number] [place] [address]- 7308 15 Dec, 2013 [facility] [place] [facility] [address] [id number] [place] [address]- 8057 15 Dec, 2013 [facility] [place] [facility] [address] [id number] [place] [address]- 6097 11 Dec, 2013 [facility] [place] [facility] [address] [id number] [place] [address]- 9414 10 Dec, 2013 [facility] [place] [facility] [address] [id number] [place] [address]- 8218 10 Dec, 2013 [facility] [place] [facility] [address] [id number] [place] [address]- 3530 18 Nov, 2013 [facility] [place] [facility] [address] [id number] [place] [address]- 8396 Nov, [facility] [place] [facility] [address] [id number] [place] [address]- 3072 Nov, [facility] [place] [facility] [address] [id number] [place] [address]- 4426 Nov, [facility] [place] [facility] [address] [id number] [place] [address]- 6015 Nov, [facility] [place] [facility] [address] [id number] [place] [address]- 0584 Oct, [facility] [place] [facility] [address] [id number] [place] [address]- 5653 Oct, [facility] [place] [facility] [address] [id number] [place] [address]- 5163 Oct, [facility] [address] [id number] [place] [address]- 2994 Sep, [facility] [place] [facility] [address] [id number] [place] [address]- 9930 Sep, [facility] [place] [facility] [address] [id number] [place] [address]- 8269 Sep, [facility] [place] [facility] [address] [id number] [place] [address]- 2865 Sep, [facility] [place] [facility] [address] [id number] [place] [address]- 8419 Aug, [facility] [place] [facility] [address] [id number] [place] [address]- 9275 Aug, [facility] [place] [facility] [address] [id number] [place] [address]- 9221 Jul, [facility] [address] [id number] [place] [address]- 6629 Jul, [facility] [place] [facility] [address] [id number] [place] [address]- 1068 Jul, [facility] [place] [facility] [address] [id number] [place] [address]- 2171 Jul, [facility] [place] [facility] [address] [id number] [place] [address]- 8755 Jul, [facility] [place] [facility] [address] [id number] [place] [address]- 5046 Jun, [facility] [place] [facility] [address] [id number] [place] [address]- 0393 Jun, [facility] [place] [facility] [address] [id number] [place] [address]- 6676 19 Jun, 2013 [facility] [place] [facility] [address] [id number] [place] [address]- 2418 18 Jun, 2013 [facility] [address] [id number] [place] [address]- 4479 16 Jun, 2013 [facility] [place] [facility] [address] [id number] [place] [address]- 0353 12 Jun, 2013 [facility] [place] [facility] [address] [id number] [place] [address]- 7239 11 Jun, 2013 [facility] [place] [facility] [address] [id number] [place] [address]- 4646 30 May, 2013 [facility] [place] [facility] [address] [id number] [place] [address]- 6684 May, [facility] [place] [facility] [address] [id number] [place] [address]- 2196 Apr, [facility] [place] [facility] [address] [id number] [place] [address]- 0583 Apr, [facility] [place] [facility] [address] [id number] [place] [address]- 1139 Apr, [facility] [place] [facility] [address] [id number] [place] [address]- 8390 Mar, [facility] [place] [facility] [address] [id number] [place] [address]- 1297 Mar, [facility] [place] [facility] [address] [id number] [place] [address]- 3224 February, [facility] [place] [facility] [address] [id number] [place] [address]- 8717 February, [facility] [place] [facility] [address] [id number] [place] [address]- 9967 February, [facility] [place] [facility] [address] [id number] [place] [address]- 5858 February, [facility] [place] [facility] [address] [id number] [place] [address]- 7202 Jan, [facility] [place] [facility] [address] [id number] [place] [address]- 6234 17 Jan, 2013 [facility] [address] [id number] [place] [address]- 6665 16 Jan, 2013 [facility] [place] [facility] [address] [id number] [place] [address]- 3083 29 Dec, 2012 [facility] [address] [id number] [place] [address]- 1382 Dec, [facility] [place] [facility] [address] [id number] [place] [address]- 5767 Dec, [facility] [place] [facility] [address] [id number] [place] [address]- 2136 08 Dec, 2012 [facility] [place] [facility] [address] [id number] [place] [address]- 7105 20 Nov, 2012 [facility] [address] [id number] [place] [address]- 6998 Nov, [facility] [place] [facility] [address] [id number] [place] [address]- 0236 Oct, [facility] [place] [facility] [address] [id number] [place] [address]- 7533 Oct, [facility] [address] [id number] [place] [address]- 8923 Oct, [facility] [place] [facility] [address] [id number] [place] [address]- 2942 Oct, [facility] [place] [facility] [address] [id number] [place] [address]- 5357 Aug, [facility] [place] [facility] [address] [id number] [place] [address]- 5588 Aug, [facility] [place] [facility] [address] [id number] [place] [address]- 0533 Jun, [facility] [place] [facility] [address] [id number] [place] [address]- 7675 May, [facility] [place] [facility] [address] [id number] [place] [address]- 5366 May, [facility] [place] [facility] [address] [id number] [place] [address]- 1803 Apr, [facility] [place] [facility] [address] [id number] [place] [address] 2546 Apr, [facility] [place] [facility] [address] [id number] [place] [address]- 9795 Apr, [facility] [address] [id number] [place] [address]- 8547 Mar, [facility] [place] [facility] [address] [id number] [place] [address]- 1720 Mar, [facility] [address] [id number] [place] [address]- 5901 Mar, [facility] [address] [id number] [place] [address]- 6089 Mar, [facility] [place] [facility] [address] [id number] [place] [address]- 9201 Mar, [facility] [place] [facility] [address] [id number] [place] [address]- 5361 February, [facility] [place] [facility] [address] [id number] [place] [address]- 7119 February, [facility] [place] [facility] [address] [id number] [place] [address] February, [facility] [place] [facility] [address] [id number] [place] [address] February, [facility] [place] [facility] [address] [id number] [place] [address] February, [facility] [place] [facility] [address] [id number] [place] [address] February, [facility] [place] [facility] [address] [id number] [place] [address] February, [facility] [place] [facility] [address] [id number] [place] [address] 25 Jan, 2012 [facility] [place] [facility] [address] [id number] [place] [address] 18 Jan, 2012 [facility] [place] [facility] [address] [id number] [place] [address]26 17 Jan, 2012 [facility] [place] [facility] [address] [id number] [place] [address] 13 Jan, 2012 [facility] [place] [facility] [address] [id number] [place] [address] 10 Jan, 2012 [facility] [place] [facility] [address] [id number] [place] [address] 04 Jan, 2012 [facility] [place] [facility] [address] [id number] [place] [address] 30 Dec, 2011 [facility] [place] [facility] [address] [id number] [place] [address] 24 Dec, 2011 [facility] [place] [facility] [address] [id number] [place] [address] Dec, [facility] [place] [facility] [address] [id number] [place] [address] Dec, [facility] [place] [facility] [address] [id number] [place] [address] Dec, [facility] [place] [facility] [address] [id number] [place] [address]883 28 Nov, 2011 [facility] [place] [facility] [address] [id number] [place] [address] Nov, [facility] [place] [facility] [address] [id number] [place] [address] 25 Nov, 2011 [facility] [place] [facility] [address] [facility] [id number] [place] [address] 14 Nov, 2011 [facility] [place] [facility] [address] [id number] [place] [address]641 10 Nov, 2011 [facility] [address] [id number] [place] [address] Nov, [facility] [place] [facility] [address] [id number] [place] [address] Oct, [facility] [address] [id number] [place] [address] 8584 Oct, [facility] [address] [id number] [place] [address] Oct, [facility] [place] [facility] [address] [id number] [place] [address]69 Oct, [facility] [address] [id number] [place] [address] Oct, [facility] [address] [id number] [place] [address] Sep, [facility] [address] [id number] [place] [address] Sep, [facility] [address] [id number] [place] [address] Sep, [facility] [address] [id number] [place] [address] 14 Sep, 2011 [facility] [place] [facility] [address] [id number] [place] [address] 14 Sep, 2011 [facility] [place] [facility] [address] [id number] [place] [address] 6979 13 Sep, 2011 [facility] [place] [facility] [address] [id number] [place] [address] 1879 12 Sep, 2011 [facility] [place] [facility] [address] [id number] [place] [address] 6977 09 Sep, 2011 [facility] [place] [facility] [address] [id number] [place] [address] Sep, [facility] [place] [facility] [address] [id number] [place] [address] Aug, [facility] [place] [facility] [address] [id number] [place] [address] 1079 Aug, [facility] [place] [facility] [address] [facility] [id number] [place] [address]- [address] Aug, [facility] [place] [facility] [address] [id number], [place] [address] Aug, [facility] [place] [facility] [address] [id number] [place] [address]783 Aug, [facility] [place] [facility] [address] [id number], [place] [address] Aug, [facility] [place] [facility] [address] [id number], [place] [address] Aug, [facility] [place] [facility] [address] [id number], [place] [address] Aug, [facility] [place] [facility] [address] [id number], [place] [address] Aug, [facility] [place] [facility] [address] [id number], [place] [address] Aug, [facility] [place] [facility] [address] [id number], [place] [address] Aug, [facility] [place] [facility] [address] [id number], [place] [address] Aug, [facility] [place] [facility] [address] [id number], [place] [address] Jul, [facility] [place] [facility] [address] [id number], [place] [address]- 7912 Jul, [facility] [place] [facility] [address] [id number], [place] [address] Jul, [facility] [place] [facility] [id number], [place] [address] Jul, [facility] [id number], [place] [address] Jul, [facility] [id number], [place] [address] Jul, [facility] [id number], [place] [address] Jul, [facility] [id number] [place] [address]- [address] Jul, [facility] [id number] [place] [address]- [address] Jul, [facility] [id number] [place] [address]- [address]155 Jul, [facility] [id number] [place] [address]- [address] Nov, [facility] [id number], [place] [address] Aug, [facility] [id number], [place] [address] 135[address] Aug, [facility] [id number], [place] [address] Aug, [facility] [id number], [place] [address] Aug, [facility] [id number], [place] [address] Jul, IMMUNIZATIONS No Known Immunizations SOCIAL HISTORY Never Assessed REASON FOR VISIT med refill PLAN OF CARE VITAL SIGNS MEDICATIONS Medication Instructions Dosage Frequency Start Date End Date Duration Status Trileptal 300 MG Orally 3 times a day 1 tablet 8h 30 Active RESULTS No Results PROCEDURES No Known procedures INSTRUCTIONS MEDICATIONS ADMINISTERED No Known Medications MEDICAL (GENERAL) HISTORY Type Description Date Medical History diabetes Medical History thyroid Surgical History appendix Surgical History gallbladder Surgical History eyes Surgical History hip Surgical History MRI on back and pelvis 06/08 Hospitalization History surgeries Hospitalization History [facility] Suicide attempt by hanging 06/14/2016 Hospitalization History [facility] 01/30/2018-02/10/2008 Hospitalization History [facility]- [facility]/SI 05/04/18-05/09/18
--- OUTSIDE RECORDS SUMMARY | 2018-08-15 20:19 | XMS REPORT ---
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 74094576 Problem Schizoaffective disorder, depressive type F25.1 Active 81608811 Problem Borderline personality disorder F60.3 Active 56837328 Problem Attention deficit hyperactivity disorder (ADHD), inattentive type, 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 87923056 Problem Schizoaffective disorder, unspecified F25.9 Active 95427598 Problem High risk medication use Z79.899 Active 107859994 Problem Posttraumatic stress disorder F43.10 Active 83373849 Problem Obsessive-compulsive disorders 300.3 Active 024730672 Problem Generalized anxiety disorder 300.02 Active 00863079 Problem Attention deficit disorder 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 314.00 Active 16563147 Problem Bipolar disorder, unspecified 296.80 Active 51966331 Problem Posttraumatic stress disorder 309.81 Active 64594337 Problem Paranoid schizophrenia, unspecified condition 295.30 Active [id number] ALLERGIES No Information ENCOUNTERS Encounter Location Date Diagnosis [facility] [address] [facility] [id number] [address] Jul, [facility] [id number] [place] [address] 1993 May, Paranoid schizophrenia F20.0 ; Posttraumatic stress disorder F43.10 ; Attention deficit hyperactivity disorder (ADHD), inattentive type, 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 and Borderline personality disorder F60.3 [facility] [id number] [place] [address] May, [facility] [address] [facility] [id number] [address] May, Paranoid schizophrenia F20.0 [facility] [address] [id number] [address] May, Paranoid schizophrenia F20.0 ; Posttraumatic stress disorder F43.10 ; Attention deficit hyperactivity disorder (ADHD), inattentive type, 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 and Borderline personality disorder F60.3 [facility] [address] [id number] [address] Apr, [facility] [address] [id number] [address] Apr, Paranoid schizophrenia F20.0 ; Posttraumatic stress disorder F43.10 ; Attention deficit hyperactivity disorder (ADHD), inattentive type, 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 and Borderline personality disorder F60.3 [facility] [address] [address] Apr, [facility] [address] [id number] [address] 4460 Apr, Schizoaffective disorder, depressive type F25.1 and Borderline personality disorder F60.3 [facility] [address] [id number] [address]60 Apr, Paranoid schizophrenia F20.0 ; Posttraumatic stress disorder F43.10 ; Attention deficit hyperactivity disorder (ADHD), inattentive type, 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 and Borderline personality disorder F60.3 [facility] [address] [facility] [id number] [address] Apr, [facility] [id number] [address] Apr, Paranoid schizophrenia F20.0 ; Posttraumatic stress disorder F43.10 ; Attention deficit hyperactivity disorder (ADHD), inattentive type, 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 and Borderline personality disorder F60.3 [facility] [address] [address] Apr, [facility] [address] [address] 5562 Mar, Paranoid schizophrenia F20.0 [facility] [address] [address] 7307 Mar, [facility] [address] [address] 0925 Mar, Paranoid schizophrenia F20.0 ; Posttraumatic stress disorder F43.10 ; Attention deficit hyperactivity disorder (ADHD), inattentive type, 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 and Borderline personality disorder F60.3 [facility] [address] [address] February, Paranoid schizophrenia F20.0 [facility] [address] [address] 6[address] February, Paranoid schizophrenia F20.0 ; Posttraumatic stress disorder F43.10 ; Attention deficit hyperactivity disorder (ADHD), inattentive type, 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 and Borderline personality disorder F60.3 [facility] [address] [address] 9[address] February, Paranoid schizophrenia F20.0 ; Posttraumatic stress disorder F43.10 ; Attention deficit hyperactivity disorder (ADHD), inattentive type, 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 and Borderline personality disorder F60.3 [facility] [address] [address] 8[address] February, [facility] [address] [address] 9185 February, Paranoid schizophrenia F20.0 [facility] [address] [address] 2807 February, Paranoid schizophrenia F20.0 [facility] [id number] [address] 8100 February, Paranoid schizophrenia F20.0 ; Posttraumatic stress disorder F43.10 ; Attention deficit hyperactivity disorder (ADHD), inattentive type, 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 and Borderline personality disorder F60.3 [facility] [address] [address] 24[address] Jan, Paranoid schizophrenia F20.0 ; Posttraumatic stress disorder F43.10 ; Attention deficit hyperactivity disorder (ADHD), inattentive type, 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3 [facility] [address] [address]- 0[address] Dec, [facility] [address] [address]- 4711 Nov, Paranoid schizophrenia F20.0 ; Posttraumatic stress disorder F43.10 ; Attention deficit hyperactivity disorder (ADHD), inattentive type, 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 and Borderline personality disorder F60.3 [facility] [address] [address]- 29[address] Nov, [facility] [address] [address]- 7889 Oct, Paranoid schizophrenia F20.0 [facility] [id number] [address]- 4844 Oct, Paranoid schizophrenia F20.0 ; Posttraumatic stress disorder F43.10 ; Attention deficit hyperactivity disorder (ADHD), inattentive type, 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 ; Borderline personality disorder F60.3 and Other buttermaker continuous churn ( 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 Z79.899 [facility] [address] [address]- 6[address] Oct, [facility] [address] [address]- 1216 Oct, [facility] [address] [address]- 5[address] Sep, [facility] [address] [address]- 8574 Sep, Paranoid schizophrenia F20.0 ; Posttraumatic stress disorder F43.10 ; Attention deficit hyperactivity disorder (ADHD), inattentive type, 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 and Borderline personality disorder F60.3 [facility] [address] [address]- 5029 Sep, Paranoid schizophrenia F20.0 [facility] [address] [address]- 0158 Aug, Paranoid schizophrenia F20.0 ; Posttraumatic stress disorder F43.10 ; Attention deficit hyperactivity disorder (ADHD), inattentive type, 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 and Borderline personality disorder F60.3 [facility] [address] [address]- 4834 Aug, Paranoid schizophrenia F20.0 ; Posttraumatic stress disorder F43.10 ; Attention deficit hyperactivity disorder (ADHD), inattentive type, 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 and Borderline personality disorder F60.3 [facility] [address] [address]- 3127 Aug, [facility] [address] [address]- 3[address] Jul, Paranoid schizophrenia F20.0 ; Posttraumatic stress disorder F43.10 ; Attention deficit hyperactivity disorder (ADHD), inattentive type, 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 and Borderline personality disorder F60.3 [facility] [address] [address]- 6[address] Jul, Paranoid schizophrenia F20.0 [facility] [address] [address]- 1887 Jul, Paranoid schizophrenia F20.0 ; Posttraumatic stress disorder F43.10 ; Attention deficit hyperactivity disorder (ADHD), inattentive type, 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 and Borderline personality disorder F60.3 [facility] [address] [address]- 0597 Jun, Paranoid schizophrenia F20.0 ; Posttraumatic stress disorder F43.10 ; Attention deficit hyperactivity disorder (ADHD), inattentive type, 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 and Borderline personality disorder F60.3 [facility] [address] [address]- 8511 May, Other longterm (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 Z79.899 [facility] [address] [address]- 3667 May, [facility] [address] [address]- 2397 May, [facility] [address] [address]- 8145 May, Attention deficit hyperactivity disorder (ADHD), inattentive type, 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 [facility] [address] [address]- 7343 May, [facility] [address] [address]- 3815 May, Attention deficit hyperactivity disorder (ADHD), inattentive type, 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 [facility] [address] [address]- 2453 May, Paranoid schizophrenia F20.0 ; Posttraumatic stress disorder F43.10 ; Attention deficit hyperactivity disorder (ADHD), inattentive type, 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 and Other buttermaker continuous churn (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 Z79.899 [facility] [address] 8621965[address] [address]- 8342 Apr, Paranoid schizophrenia F20.0 [facility] [address] [address]- 1902 Apr, Paranoid schizophrenia F20.0 ; Posttraumatic stress disorder F43.10 and Attention deficit hyperactivity disorder (ADHD), inattentive type, 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 [facility] [address] [address]- 5764 February, [facility] [address] [address]- 7563 February, Paranoid schizophrenia F20.0 ; Posttraumatic stress disorder F43.10 and Attention deficit hyperactivity disorder (ADHD), inattentive type, 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 [facility] [address] [address]- 6489 February, Paranoid schizophrenia F20.0 ; Posttraumatic stress disorder F43.10 and Attention deficit hyperactivity disorder (ADHD), inattentive type, 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 [facility] [address] [address]- 7106 Jan, Paranoid schizophrenia F20.0 ; Posttraumatic stress disorder F43.10 and Attention deficit hyperactivity disorder (ADHD), inattentive type, 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 [facility] [address] [address] Dec, Dental examination Z01.20 [facility] [address] [id number] [place] [id number] Nov, Dental examination Z01.20 [facility] [address] [id number] [place] [address] Nov, Dental examination Z01.20 [facility] [address] [address] Nov, Dental caries K02.9 [facility] [address] [address]- 8180 Nov, High risk medication use Z79.899 [facility] [address] [address]- 4418 Nov, Paranoid schizophrenia F20.0 ; Posttraumatic stress disorder F43.10 ; Attention deficit hyperactivity disorder (ADHD), inattentive type, 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 and Borderline personality disorder in adult F60.3 [facility] [address] [place] [id number] Oct, Dental caries K02.9 [facility] [id number] [place] [address] 73661- 5743 Sep, Paranoid schizophrenia F20.0 ; Posttraumatic stress disorder F43.10 and Attention deficit hyperactivity disorder (ADHD), inattentive type, 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 [facility] [address] [place] [address] 60272- 9841 Aug, Paranoid schizophrenia F20.0 ; Posttraumatic stress disorder F43.10 and Attention deficit hyperactivity disorder (ADHD), inattentive type, 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 [facility] [address] [address] Aug, Strep throat J02.0 and Cough R05 [facility] [id number] [place] [address] 28106- 5915 Aug, [facility] [address] [place] [address] 06949- 1506 Jul, Paranoid schizophrenia F20.0 ; Posttraumatic stress disorder F43.10 and Attention deficit hyperactivity disorder (ADHD), inattentive type, 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 [facility] [address] [address]- 9416 Jul, [facility] [id number] [place] [address] 39148- 0129 Jun, Paranoid schizophrenia F20.0 ; Posttraumatic stress disorder F43.10 and Attention deficit hyperactivity disorder (ADHD), inattentive type, 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 [facility] [address] [address] Jun, Dental examination Z01.20 [facility] [address] [place] [address] 22944- 6533 Jun, [facility] [id number] [place] [address] 02199- 8387 May, Paranoid schizophrenia F20.0 [facility] [id number] [place] [address] 82834- 7296 May, Paranoid schizophrenia F20.0 ; Posttraumatic stress disorder F43.10 and Attention deficit hyperactivity disorder (ADHD), inattentive type, 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 [facility] [address] [place] [address] 79023- 1175 May, [facility] [id number] [place] [address] 37024- 8091 May, Paranoid schizophrenia F20.0 [facility] [address] [place] [address] 66248- 4553 May, [facility] [address] [place] [address] 94106- 0902 May, Paranoid schizophrenia F20.0 [facility] [id number] [place] [address] 29532- 2717 May, Schizoaffective disorder, unspecified F25.9 [facility] [address] [address]- 5348 May, Schizoaffective disorder, unspecified F25.9 [facility] [id number] [address]- 3086 May, [facility] [id number] [place] [address] 57546- 5824 May, Paranoid schizophrenia F20.0 [facility] [id number] [address]- 6734 May, Paranoid schizophrenia F20.0 ; Posttraumatic stress disorder F43.10 and Attention deficit hyperactivity disorder (ADHD), inattentive type, 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 and Posttraumatic stress disorder F43.10 [facility] [address] [facility] [id number] [place] [address]- 2581 Mar, [facility] [address] [facility] [id number] [place] [address]498 Mar, Paranoid schizophrenia F20.0 ; Posttraumatic stress disorder F43.10 and Attention deficit hyperactivity disorder (ADHD), inattentive type, 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 [facility] [address] [id number] [place] [address]- 7456 February, [facility] [address] [facility] [id number] [place] 2733 February, [facility] [address] [id number] [place] [address]- 3585 February, [facility] [address] [facility] [id number] [place] [address] February, [facility] [address] [facility] [id number] [place] [address]- 2542 Jan, Paranoid schizophrenia F20.0 [facility] [place] [facility] [address] [id number] [address] Jan, Dental examination Z01.20 [facility] [address] [id number] [place] [address] Jan, Dental caries K02.9 [facility] [address] [id number] [place] [address] Jan, Dental examination Z01.20 [facility] [address] [id number] [place] [address] Dec, Encounter for dental examination Z01.20 [facility] [address] [facility] [id number] [address]- 9213 Dec, Paranoid schizophrenia F20.0 [facility] [address] [id number] [place] [address] Dec, Dental examination Z01.20 [facility] [address] [address]- 6878 Dec, [facility] [id number] [address]- 9346 Dec, Paranoid schizophrenia F20.0 ; Posttraumatic stress disorder F43.10 and Attention deficit hyperactivity disorder (ADHD), inattentive type, 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 [facility] [address] [address]- 5722 Nov, Schizoaffective disorder, unspecified F25.9 [facility] [id number] [address]- 5192 Oct, Paranoid schizophrenia F20.0 [facility] [id number] [address]- 8235 Oct, [facility] [id number] [address]- 6194 Sep, Paranoid schizophrenia F20.0 ; Posttraumatic stress disorder F43.10 and Attention deficit hyperactivity disorder (ADHD), inattentive type, 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 [facility] [address] [address] 4411 Sep, [facility] [address] [place] [address] 12445- 0282 Sep, Paranoid schizophrenia F20.0 ; Posttraumatic stress disorder F43.10 and Attention deficit hyperactivity disorder (ADHD), inattentive type, 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 [facility] [id number] [place] [address] 42233- 3454 Aug, Paranoid schizophrenia F20.0 [facility] [address] [address]- 5309 Aug, [facility] [id number] [place] [address] 53560- 2327 Aug, Posttraumatic stress disorder F43.10 ; Paranoid schizophrenia F20.0 and Attention deficit hyperactivity disorder (ADHD), inattentive type, 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 [facility] [address] [place] [address] 85168- 0801 Jul, Bipolar disorder, unspecified F31.9 [facility] [address] [address]- 0465 Jul, [facility] [address] [id number] [address]- 7296 Jun, [facility] [address] [address]- 3029 Jun, Schizoaffective disorder, chronic 295.72 ; Posttraumatic stress disorder 309.81 and Attention deficit disorder 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 314.00 [facility] [address] [address]- 8485 May, [facility] [id number] [place] [address] 86404- 8077 May, [facility] [address] [address]- 7639 May, Schizoaffective disorder, chronic 295.72 ; Posttraumatic stress disorder 309.81 ; Attention deficit disorder 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 314.00 and Bipolar disorder, unspecified 296.80 [facility] [address] [address]- 3901 Apr, Schizoaffective disorder, chronic 295.72 [facility] [address] [address]- 9354 Apr, [facility] [id number] [place] [address] 80723- 0212 Apr, Schizoaffective disorder, chronic 295.72 ; Posttraumatic stress disorder 309.81 and Attention deficit disorder 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 314.00 [facility] [address] [place] [address] 84754- 3929 Mar, Disorganized schizophrenia, 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 [facility] [id number] [address]- 4904 Mar, [facility] [id number] [place] [address] 26295- 2635 Mar, [facility] [address] [address]- 3416 Mar, [facility] [address] [address]- 8941 Mar, [facility] [id number] [address] February, Schizoaffective disorder, chronic 295.72 [facility] [id number] [address] February, [facility] [id number] [address] February, Attention deficit disorder 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 314.00 ; Posttraumatic stress disorder 309.81 and Schizoaffective disorder, chronic 295.72 [facility] [id number] [address] Jan, [facility] [place] [facility] [address] [id number] [place] [address] Jan, 2015 [facility] [place] [facility] [address] [id number] [place] [address] Jan, [facility] [place] [facility] [address] [id number] [place] [address] Dec, [facility] [place] [facility] [address] [id number] [place] [address] Dec, [facility] [place] [facility] [address] [id number] [place] [address] Dec, [facility] [place] [facility] [address] [id number] [place] [address]99 Dec, [facility] [place] [facility] [address] [id number] [place] [address] 9036 Dec, [facility] [place] [facility] [address] [id number] [place] [address] 1678 Dec, [facility] [place] [facility] [address] [id number] [place] [address] 3586 Dec, [facility] [place] [facility] [address] [id number] [place] [address]- 7485 Dec, [facility] [place] [facility] [address] [id number] [place] [address]- 7660 Nov, [facility] [place] [facility] [address] [id number] [place] [address] 1413 Nov, [facility] [place] [facility] [address] [id number] [place] [address] 3546 Nov, [facility] [place] [facility] [address] [id number] [place] [address]- 9912 Nov, [facility] [place] [facility] [address] [id number] [place] [address]- 5254 Nov, [facility] [place] [facility] [address] [id number] [place] [address] 28[address] Nov, [facility] [place] [facility] [address] [id number] [place] [address]- 3075 Nov, [facility] [place] [facility] [address] [id number] [place] [address] Nov, [facility] [place] [facility] [address] [id number] [place] [address]- 2506 Nov, [facility] [place] [facility] [address] [id number] [place] [address]- 2184 Nov, [facility] [place] [facility] [address] [id number] [place] [address]- 8848 Oct, [facility] [place] [facility] [address] [id number] [place] [address]- 8528 Oct, [facility] [place] [facility] [address] [id number] [place] [address]- 3669 Oct, [facility] [place] [facility] [address] [id number] [place] [address]- 4355 Oct, [facility] [place] [facility] [address] [id number] [place] [address]- 9463 Oct, [facility] [place] [facility] [address] [facility] [id number] [place] [address]- 5190 Oct, [facility] [place] [facility] [address] [id number] [place] [address]- 8920 Oct, [facility] [place] [facility] [address] [id number] [place] [address]- 6356 Sep, [facility] [place] [facility] [address] [id number] [place] [address]- 2726 Sep, [facility] [place] [facility] [address] [id number] [place] [address]- 9973 Sep, [facility] [place] [facility] [address] [id number] [place] [address]- 1084 Sep, [facility] [place] [facility] [address] [id number] [place] [address]- 5932 Aug, [facility] [place] [facility] [address] [id number] [place] [address]- 7106 Aug, [facility] [place] [facility] [address] [id number] [place] [address]- 5612 Aug, [facility] [place] [facility] [address] [id number] [place] [address]- 5786 Aug, [facility] [place] [facility] [address] [id number] [place] [address]- 8774 Aug, [facility] [place] [facility] [address] [id number] [place] [address]- 4133 Aug, [facility] [place] [facility] [address] [id number] [place] [address]- 6943 Jul, [facility] [place] [facility] [address] [id number] [place] [address]- 5306 Jul, [facility] [place] [facility] [address] [id number] [place] [address]- 0801 Jul, [facility] [place] [facility] [address] [id number] [place] [address]- 2174 Jul, [facility] [place] [facility] [address] [id number] [place] [address]- 5448 Jul, [facility] [place] [facility] [address] [id number] [place] [address]- 9028 Jul, [facility] [place] [facility] [address] [id number] [place] [address]- 8217 Jun, [facility] [place] [facility] [address] [id number] [place] [address]- 2789 27 Jun, 2014 [facility] [place] [facility] [address] [id number] [place] [address]- 7835 26 Jun, 2014 [facility] [place] [facility] [address] [id number] [place] [address]- 7897 Jun, 2013 [facility] [place] [facility] [address] [id number] [place] [address]- 9726 Jun, 2013 [facility] [place] [facility] [address] [id number] [place] [address]- 5696 Jun, [facility] [place] [facility] [address] [id number] [place] [address] 2546 Jun, 2013 [facility] [place] [facility] [address] [id number] [place] [address] 2546 Jun, 2013 [facility] [place] [facility] [address] [id number] [place] [address]- 6384 Jun, 2013 [facility] [place] [facility] [address] [id number] [place] [address]- 3144 Jun, [facility] [place] [facility] [address] [id number] [place] [address]- 7923 Jun, [facility] [place] [facility] [address] [id number] [place] [address]- 3475 May, [facility] [place] [facility] [address] [id number] [place] [address]- 2821 May, [facility] [place] [facility] [address] [id number] [place] [address]- 2112 May, [facility] [place] [facility] [address] [id number] [place] [address]- 6136 May, [facility] [place] [facility] [address] [id number] [place] [address]- 6453 May, [facility] [place] [facility] [address] [id number] [place] [address]- 3735 May, [facility] [place] [facility] [address] [id number] [place] [address]- 7247 May, [facility] [place] [facility] [address] [id number] [place] [address]- 0064 May, [facility] [place] [facility] [address] [id number] [place] [address]- 3850 May, [facility] [place] [facility] [address] [id number] [place] [address]- 9091 May, [facility] [place] [facility] [address] [id number] [place] [address]- 1449 Apr, [facility] [place] [facility] [address] [id number] [place] [address]- 1049 Apr, [facility] [place] [facility] [address] [id number] [place] [address]- 2709 Apr, [facility] [place] [facility] [address] [id number] [place] [address]- 1575 Apr, [facility] [place] [facility] [address] [id number] [place] [address]- 2743 Apr, [facility] [place] [facility] [address] [id number] [place] [address]- 0813 Apr, [facility] [place] [facility] [address] [id number] [place] [address]- 4486 Apr, [facility] [place] [facility] [address] [id number] [place] [address]- 2871 Apr, [facility] [place] [facility] [address] [id number] [place] [address]- 6583 Apr, [facility] [place] [facility] [address] [id number] [place] [address]- 6576 Apr, [facility] [place] [facility] [address] [id number] [place] [address]- 2615 Mar, [facility] [place] [facility] [address] [id number] [place] [address]- 8046 Mar, [facility] [place] [facility] [address] [id number] [place] [address]- 6161 Mar, [facility] [place] [facility] [address] [id number] [place] [address]- 6370 Mar, [facility] [place] [facility] [address] [id number] [place] [address]- 6899 Mar, [facility] [place] [facility] [address] [id number] [place] [address]- 6941 Mar, [facility] [place] [facility] [address] [id number] [place] [address]- 5403 18 Mar, 2014 [facility] [place] [facility] [address] [id number] [place] [address]- 2185 Mar, [facility] [place] [facility] [address] [id number] [place] [address]- 4338 16 Mar, 2014 [facility] [place] [facility] [address] [id number] [place] [address]- 6965 Mar, [facility] [place] [facility] [address] [id number] [place] [address]- 4325 Mar, [facility] [place] [facility] [address] [id number] [place] [address]- 3232 Mar, [facility] [place] [facility] [address] [id number] [place] [address]- 1580 Mar, [facility] [place] [facility] [address] [id number] [place] [address]- 2371 Mar, [facility] [place] [facility] [address] [id number] [place] [address]- 9253 Mar, [facility] [place] [facility] [address] [id number] [place] [address]- 7390 Mar, [facility] [place] [facility] [address] [id number] [place] [address]- 1396 Mar, [facility] [place] [facility] [address] [id number] [place] [address]- 2472 Mar, [facility] [place] [facility] [address] [id number] [place] [address]- 5000 04 Mar, 2014 [facility] [place] [facility] [address] [id number] [place] [address]- 6400 Mar, [facility] [address] [id number] [place] [address]- 2000 February, [facility] [address] [id number] [place] [address]- 0371 February, [facility] [address] [id number] [place] [address]- 2606 February, [facility] [place] [facility] [address] [id number] [place] [address]- 9291 February, [facility] [address] [id number] [place] [address]- 8624 February, [facility] [address] [id number] [place] [address]- 2405 February, [facility] [address] [id number] [place] [address]- 2598 February, [facility] [address] [id number] [place] [address]- 8336 February, [facility] [address] [id number] [place] [address]- 9357 February, [facility] [address] [id number] [place] [address]- 2501 February, [facility] [address] [id number] [place] [address]- 6047 February, [facility] [place] [facility] [address] [id number] [place] [address]- 8840 February, [facility] [place] [facility] [address] [id number] [place] [address]- 5346 February, [facility] [place] [facility] [address] [id number] [place] [address]- 9338 February, [facility] [place] [facility] [address] [id number] [place] [address]- 4417 February, [facility] [place] [facility] [address] [id number] [place] [address]- 0701 February, [facility] [place] [facility] [address] [id number] [place] [address]- 6400 February, [facility] [place] [facility] [address] [id number] [place] [address]- 1764 February, [facility] [place] [facility] [address] [id number] [place] [address]- 2737 February, [facility] [place] [facility] [address] [id number] [place] [address]- 1151 February, [facility] [place] [facility] [address] [id number] [place] [address]- 8600 February, [facility] [place] [facility] [address] [id number] [place] [address]- 6992 Jan, [facility] [place] [facility] [address] [id number] [place] [address]- 0732 Jan, [facility] [place] [facility] [address] [id number] [place] [address]- 5730 Jan, [facility] [place] [facility] [address] [id number] [place] [address]- 1406 Jan, [facility] [place] [facility] [address] [id number] [place] [address]- 5455 Jan, [facility] [place] [facility] [address] [id number] [place] [address]- 3244 Jan, [facility] [place] [facility] [address] [id number] [place] [address]- 7433 Jan, [facility] [place] [facility] [address] [id number] [place] [address]- 5712 Jan, [facility] [place] [facility] [address] [id number] [place] [address]- 3148 Dec, [facility] [place] [facility] [address] [id number] [place] [address]- 4226 20 Dec, 2013 [facility] [place] [facility] [address] [id number] [place] [address]- 5698 20 Dec, 2013 [facility] [place] [facility] [address] [id number] [place] [address]- 2544 19 Dec, 2013 [facility] [place] [facility] [address] [id number] [place] [address]- 4849 19 Dec, 2013 [facility] [place] [facility] [address] [id number] [place] [address]- 0191 15 Dec, 2013 [facility] [place] [facility] [address] [id number] [place] [address]- 5302 15 Dec, 2013 [facility] [place] [facility] [address] [id number] [place] [address]- 8614 11 Dec, 2013 [facility] [place] [facility] [address] [id number] [place] [address]- 9543 10 Dec, 2013 [facility] [place] [facility] [address] [id number] [place] [address]- 8773 10 Dec, 2013 [facility] [place] [facility] [address] [id number] [place] [address]- 9080 18 Nov, 2013 [facility] [place] [facility] [address] [id number] [place] [address]- 7851 Nov, [facility] [place] [facility] [address] [id number] [place] [address]- 2701 Nov, [facility] [place] [facility] [address] [id number] [place] [address]- 2631 Nov, [facility] [place] [facility] [address] [id number] [place] [address]- 4541 Nov, [facility] [place] [facility] [address] [id number] [place] [address]- 7085 Oct, [facility] [place] [facility] [address] [id number] [place] [address]- 8029 Oct, [facility] [place] [facility] [address] [id number] [place] [address]- 3248 Oct, [facility] [address] [id number] [place] [address]- 9892 Sep, [facility] [place] [facility] [address] [id number] [place] [address]- 1713 Sep, [facility] [place] [facility] [address] [id number] [place] [address]- 1315 Sep, [facility] [place] [facility] [address] [id number] [place] [address]- 5165 Sep, [facility] [place] [facility] [address] [id number] [place] [address]- 1409 Aug, [facility] [place] [facility] [address] [id number] [place] [address]- 8617 Aug, [facility] [place] [facility] [address] [id number] [place] [address]- 2362 Jul, [facility] [address] [id number] [place] [address]- 4436 Jul, [facility] [place] [facility] [address] [id number] [place] [address]- 0937 Jul, [facility] [place] [facility] [address] [id number] [place] [address]- 7615 Jul, [facility] [place] [facility] [address] [id number] [place] [address]- 9518 Jul, [facility] [place] [facility] [address] [id number] [place] [address]- 8219 Jun, [facility] [place] [facility] [address] [id number] [place] [address]- 2413 Jun, [facility] [place] [facility] [address] [id number] [place] [address]- 7344 19 Jun, 2013 [facility] [place] [facility] [address] [id number] [place] [address]- 9090 18 Jun, 2013 [facility] [address] [id number] [place] [address]- 0315 16 Jun, 2013 [facility] [place] [facility] [address] [id number] [place] [address]- 7579 12 Jun, 2013 [facility] [place] [facility] [address] [id number] [place] [address]- 9690 11 Jun, 2013 [facility] [place] [facility] [address] [id number] [place] [address]- 8313 30 May, 2013 [facility] [place] [facility] [address] [id number] [place] [address]- 8434 May, [facility] [place] [facility] [address] [id number] [place] [address]- 5762 Apr, [facility] [place] [facility] [address] [id number] [place] [address]- 6975 Apr, [facility] [place] [facility] [address] [id number] [place] [address]- 8627 Apr, [facility] [place] [facility] [address] [id number] [place] [address]- 5750 Mar, [facility] [place] [facility] [address] [id number] [place] [address]- 6452 Mar, [facility] [place] [facility] [address] [id number] [place] [address]- 2271 February, [facility] [place] [facility] [address] [id number] [place] [address]- 6454 February, [facility] [place] [facility] [address] [id number] [place] [address]- 0249 February, [facility] [place] [facility] [address] [id number] [place] [address]- 2579 February, [facility] [place] [facility] [address] [id number] [place] [address]- 9093 Jan, [facility] [place] [facility] [address] [id number] [place] [address]- 6838 17 Jan, 2013 [facility] [address] [id number] [place] [address]- 1621 16 Jan, 2013 [facility] [place] [facility] [address] [id number] [place] [address]- 6217 29 Dec, 2012 [facility] [address] [id number] [place] [address]- 7200 Dec, [facility] [place] [facility] [address] [id number] [place] [address]- 0407 Dec, [facility] [place] [facility] [address] [id number] [place] [address]- 3089 08 Dec, 2012 [facility] [place] [facility] [address] [id number] [place] [address]- 6353 20 Nov, 2012 [facility] [address] [id number] [place] [address]- 1138 Nov, [facility] [place] [facility] [address] [id number] [place] [address]- 7362 Oct, [facility] [place] [facility] [address] [id number] [place] [address]- 2806 Oct, [facility] [address] [id number] [place] [address]- 9105 Oct, [facility] [place] [facility] [address] [id number] [place] [address]- 0751 Oct, [facility] [place] [facility] [address] [id number] [place] [address]- 1063 Aug, [facility] [place] [facility] [address] [id number] [place] [address]- 3529 Aug, [facility] [place] [facility] [address] [id number] [place] [address]- 9409 Jun, [facility] [place] [facility] [address] [id number] [place] [address]- 5367 May, [facility] [place] [facility] [address] [id number] [place] [address]- 9774 May, [facility] [place] [facility] [address] [id number] [place] [address]- 7532 Apr, [facility] [place] [facility] [address] [id number] [place] [address] 2546 Apr, [facility] [place] [facility] [address] [id number] [place] [address]- 1548 Apr, [facility] [address] [id number] [place] [address]- 8156 Mar, [facility] [place] [facility] [address] [id number] [place] [address]- 4822 Mar, [facility] [address] [id number] [place] [address]- 1015 Mar, [facility] [address] [id number] [place] [address]- 5101 Mar, [facility] [place] [facility] [address] [id number] [place] [address]- 6017 Mar, [facility] [place] [facility] [address] [id number] [place] [address] February, [facility] [place] [facility] [address] [id number] [place] [address] February, [facility] [place] [place] [facility] [address] [id number] [place] [address] February, [facility] [place] [facility] [address] [id number] [place] [address] February, [facility] [place] [facility] [address] [id number] [place] [address] February, [facility] [place] [facility] [address] [id number] [place] [address] February, [facility] [place] [facility] [address] [id number] [place] [address] February, [facility] [place] [facility] [address] [id number] [place] [address] 25 Jan, 2012 [facility] [place] [facility] [address] [id number] [place] [address] 18 Jan, 2012 [facility] [place] [facility] [address] [id number] [place] [address] 17 Jan, 2012 [facility] [place] [facility] [address] [id number] [place] [address] 13 Jan, 2012 [facility] [place] [facility] [address] [id number] [place] [address] 10 Jan, 2012 [facility] [place] [facility] [address] [id number] [place] [address] 04 Jan, 2012 [facility] [place] [facility] [address] [id number] [place] [address] 30 Dec, 2011 [facility] [place] [facility] [address] [id number] [place] [address]- [address] 24 Dec, 2011 [facility] [place] [facility] [address] [id number] [place] [address] Dec, [facility] [place] [facility] [address] [id number] [place] [address] Dec, [facility] [place] [facility] [address] [id number] [place] [address] Dec, [facility] [place] [facility] [address] [id number] [place] [address] 28 Nov, 2011 [facility] [place] [facility] [address] [id number] [place] [address] Nov, [facility] [place] [facility] [address] [id number] [place] [address] 25 Nov, 2011 [facility] [place] [facility] [address] [facility] [id number] [place] [address]- [address] 14 Nov, 2011 [facility] [place] [facility] [address] [id number] [place] [address] 10 Nov, 2011 [facility] [address] [id number] [place] [address] Nov, [facility] [place] [facility] [address] [id number] [place] [address] Oct, [facility] [address] [id number] [place] [address] Oct, [facility] [address] [id number] [place] [address] Oct, [facility] [place] [facility] [address] [id number] [place] [address] Oct, [facility] [address] [id number] [place] [address] Oct, [facility] [address] [id number] [place] [address] Sep, [facility] [address] [id number] [place] [address] Sep, [facility] [address] [id number] [place] [address] Sep, [facility] [address] [id number] [place] [address] 14 Sep, 2011 [facility] [place] [facility] [address] [id number] [place] [address] 14 Sep, 2011 [facility] [place] [facility] [address] [id number] [place] [address] 13 Sep, 2011 [facility] [place] [facility] [address] [id number] [place] [address] 12 Sep, 2011 [facility] [place] [facility] [address] [id number] [place] [address] 09 Sep, 2011 [facility] [place] [place] [facility] [address] [id number] [place] [address] Sep, [facility] [place] [facility] [address] [id number] [place] [address] Aug, [facility] [place] [facility] [address] [id number] [place] [address] Aug, [facility] [place] [facility] [address] [facility] [id number] [place] [address] Aug, [facility] [place] [facility] [address] [id number] [place] [address] Aug, [facility] [place] [facility] [address] [id number] [place] [address] Aug, [facility] [place] [facility] [address] [id number] [place] [address] Aug, [facility] [place] [facility] [address] [id number] [place] [address] Aug, [facility] [place] [facility] [address] [id number] [place] [address] Aug, [facility] [place] [facility] [address] [id number] [place] [address]- 39[address] Aug, [facility] [place] [facility] [address] [id number] [place] [address] Aug, [facility] [place] [facility] [address] [id number] [place] [address] 3916 Aug, [facility] [place] [facility] [address] [id number] [place] [address] Aug, [facility] [place] [facility] [address] [id number] [place] [address]- [address] Jul, [facility] [place] [facility] [address] [id number] [place] [address] Jul, [facility] [place] [facility] [address] [id number] [place] [address] Jul, [facility] [place] [facility] [id number] [address] Jul, [facility] [id number] [address] Jul, [facility] [id number] [address] Jul, [facility] [id number] [address] Jul, [facility] [id number] [place] [address] Jul, [facility] [id number] [place] [address]- [address] Jul, [facility] [id number] [place] [address]- [address]266 Jul, [facility] [id number] [place] [address]- [address] Nov, [facility] [id number] [address] Aug, [facility] [id number] [place] [address]- [address]37 Aug, [facility] [id number] [address]- [address] Aug, [facility] [id number] [address]- 164[address] Aug, [facility] [id number] [address] Jul, IMMUNIZATIONS No Known Immunizations SOCIAL HISTORY Never Assessed REASON FOR VISIT Refill request PLAN OF CARE VITAL SIGNS MEDICATIONS Medication Instructions Dosage Frequency Start Date End Date Duration Status Ativan 1 MG Orally 2 times a day as needed 1 tablet 30 days Active Intuniv 1 MG Orally 2 times a day 1 tablet 12h 30 days [...] Suicide attempt by hanging 06/14/2016 Hospitalization History [facility] 01/30/2018-02/10/2008 Hospitalization History [facility] 05/04/18-05/09/18
--- OUTSIDE RECORDS SUMMARY | 2018-08-15 20:20 | XMS REPORT ---
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 63638721 Problem Schizoaffective disorder, depressive type F25.1 Active 72735386 Problem Borderline personality disorder F60.3 Active 58127282 Problem Attention deficit hyperactivity disorder (ADHD), inattentive type, 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 29107239 Problem Schizoaffective disorder, unspecified F25.9 Active 94649144 Problem High risk medication use Z79.899 Active 178257659 Problem Posttraumatic stress disorder F43.10 Active 14712000 Problem Obsessive-compulsive disorders 300.3 Active 875398169 Problem Generalized anxiety disorder 300.02 Active 68730148 Problem Attention deficit disorder 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 314.00 Active 24105519 Problem Bipolar disorder, unspecified 296.80 Active 07576212 Problem Posttraumatic stress disorder 309.81 Active 69785343 Problem Paranoid schizophrenia, unspecified condition 295.30 Active [id number] ALLERGIES No Information ENCOUNTERS Encounter Location Date Diagnosis [facility] [id number], [place] [address] May, [facility] [address], [place] [address] May, [facility] [address], [place] [address] May, Paranoid schizophrenia F20.0 [facility] [id number], [place] [address] May, Paranoid schizophrenia F20.0 ; Posttraumatic stress disorder F43.10 ; Attention deficit hyperactivity disorder (ADHD), inattentive type, 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 and Borderline personality disorder F60.3 [facility] [id number] [address] Apr, [facility] [address], [place] [address] Apr, Paranoid schizophrenia F20.0 ; Posttraumatic stress disorder F43.10 ; Attention deficit hyperactivity disorder (ADHD), inattentive type, 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 and Borderline personality disorder F60.3 [facility] [address], [place] [address] Apr, [facility] [id number] [address] 87[address] Apr, Schizoaffective disorder, depressive type F25.1 and Borderline personality disorder F60.3 [facility] [id number], [place] [address] Apr, Paranoid schizophrenia F20.0 ; Posttraumatic stress disorder F43.10 ; Attention deficit hyperactivity disorder (ADHD), inattentive type, 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 and Borderline personality disorder F60.3 [facility] [address], [place] [address] Apr, [facility] [address], [place] [address] 3[address] Apr, Paranoid schizophrenia F20.0 ; Posttraumatic stress disorder F43.10 ; Attention deficit hyperactivity disorder (ADHD), inattentive type, 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 and Borderline personality disorder F60.3 [facility] [address], [place] [address] Apr, [facility] [id number], [place] [address] 0339 Mar, Paranoid schizophrenia F20.0 [facility] [address], [place] [address] 46[address] Mar, [facility] [address], [place] [address] 0055 Mar, Paranoid schizophrenia F20.0 ; Posttraumatic stress disorder F43.10 ; Attention deficit hyperactivity disorder (ADHD), inattentive type, 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 and Borderline personality disorder F60.3 [facility] [address], [place] [address] February, Paranoid schizophrenia F20.0 [facility] [id number], [place] [address] 4785 February, Paranoid schizophrenia F20.0 ; Posttraumatic stress disorder F43.10 ; Attention deficit hyperactivity disorder (ADHD), inattentive type, 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 and Borderline personality disorder F60.3 [facility] [address], [place] [address] 47[address] February, Paranoid schizophrenia F20.0 ; Posttraumatic stress disorder F43.10 ; Attention deficit hyperactivity disorder (ADHD), inattentive type, 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 and Borderline personality disorder F60.3 [facility] [address], [place] [address] 24[address] February, [facility] [address], [place] [address] 8[address] February, Paranoid schizophrenia F20.0 [facility] [address], [place] [address] 3546 February, Paranoid schizophrenia F20.0 [facility] [id number], [place] [address] 1381 February, Paranoid schizophrenia F20.0 ; Posttraumatic stress disorder F43.10 ; Attention deficit hyperactivity disorder (ADHD), inattentive type, 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 and Borderline personality disorder F60.3 [facility] [id number], [place] [address] Jan, Paranoid schizophrenia F20.0 ; Posttraumatic stress disorder F43.10 ; Attention deficit hyperactivity disorder (ADHD), inattentive type, 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 and Borderline personality disorder F60.3 [facility] [address], [place] [address] 4077 Jan, Paranoid schizophrenia F20.0 [facility] [address], [place] [address]- 5520 Jan, Paranoid schizophrenia F20.0 [facility] [id number] [place] [address]- 2439 Jan, Paranoid schizophrenia F20.0 ; Posttraumatic stress disorder F43.10 ; Attention deficit hyperactivity disorder (ADHD), inattentive type, 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 and Borderline personality disorder F60.3 [facility] [id number], [place] [address] Dec, [facility] [id number] [place] [address]- 0099 Nov, Paranoid schizophrenia F20.0 ; Posttraumatic stress disorder F43.10 ; Attention deficit hyperactivity disorder (ADHD), inattentive type, 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 and Borderline personality disorder F60.3 [facility] [address], [place] [address]- 59[address] Nov, [facility] [address], [place] [address]- 7144 Oct, Paranoid schizophrenia F20.0 [facility] [address], [place] [address]- 3246 Oct, Paranoid schizophrenia F20.0 ; Posttraumatic stress disorder F43.10 ; Attention deficit hyperactivity disorder (ADHD), inattentive type, 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 ; Borderline personality disorder F60.3 and Other scientific editor ( 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 Z79.899 [facility] [address], [place] [address]- 7[address] Oct, [facility] [id number], [place] [address]- 6660 Oct, [facility] [address], [place] [address]- 2[address] Sep, [facility] [address], [place] [address]- 2720 Sep, Paranoid schizophrenia F20.0 ; Posttraumatic stress disorder F43.10 ; Attention deficit hyperactivity disorder (ADHD), inattentive type, 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 and Borderline personality disorder F60.3 [facility] [address], [place] [address]- 3468 Sep, Paranoid schizophrenia F20.0 [facility] [address], [place] [address]- 9529 Aug, Paranoid schizophrenia F20.0 ; Posttraumatic stress disorder F43.10 ; Attention deficit hyperactivity disorder (ADHD), inattentive type, 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 and Borderline personality disorder F60.3 [facility] [address], [place] [address]- 0641 Aug, Paranoid schizophrenia F20.0 ; Posttraumatic stress disorder F43.10 ; Attention deficit hyperactivity disorder (ADHD), inattentive type, 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 and Borderline personality disorder F60.3 [facility] [address], [place] [address] 47[address] Aug, [facility] [address], [place] [address]- 3171 Jul, Paranoid schizophrenia F20.0 ; Posttraumatic stress disorder F43.10 ; Attention deficit hyperactivity disorder (ADHD), inattentive type, 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 and Borderline personality disorder F60.3 [facility] [address], [place] [address]- 4498 Jul, Paranoid schizophrenia F20.0 [facility] [address], [place] [address]- 3350 Jul, Paranoid schizophrenia F20.0 ; Posttraumatic stress disorder F43.10 ; Attention deficit hyperactivity disorder (ADHD), inattentive type, 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 and Borderline personality disorder F60.3 [facility] [id number], [place] [address]- 8569 Jun, Paranoid schizophrenia F20.0 ; Posttraumatic stress disorder F43.10 ; Attention deficit hyperactivity disorder (ADHD), inattentive type, 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 and Borderline personality disorder F60.3 [facility] [address], [place] [address]- 7930 May, Other scientific editor (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 Z79.899 [facility] [address], [place] [address]- 4304 May, [facility] [id number], [place] [address]- 8769 May, [facility] [address], [place] [address]- 0246 May, Attention deficit hyperactivity disorder (ADHD), inattentive type, 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 [facility] [address], [place] [address]- 8930 May, [facility] [id number], [place] [address]- 6225 May, Attention deficit hyperactivity disorder (ADHD), inattentive type, 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 [facility] [id number], [place] [address]- 0974 May, Paranoid schizophrenia F20.0 ; Posttraumatic stress disorder F43.10 ; Attention deficit hyperactivity disorder (ADHD), inattentive type, 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 and Other group home (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 Z79.899 [facility] [id number], [place] [address]- 3659 Apr, Paranoid schizophrenia F20.0 [facility] [id number], [place] [address]- 1230 Apr, Paranoid schizophrenia F20.0 ; Posttraumatic stress disorder F43.10 and Attention deficit hyperactivity disorder (ADHD), inattentive type, 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 [facility] [address], [place] [address]- 7927 February, [facility] [id number], [place] [address]- 3665 February, Paranoid schizophrenia F20.0 ; Posttraumatic stress disorder F43.10 and Attention deficit hyperactivity disorder (ADHD), inattentive type, 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 [facility] [address], [place] [address]- 2623 February, Paranoid schizophrenia F20.0 ; Posttraumatic stress disorder F43.10 and Attention deficit hyperactivity disorder (ADHD), inattentive type, 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 [facility] [address], [place] [address]- 7021 Jan, Paranoid schizophrenia F20.0 ; Posttraumatic stress disorder F43.10 and Attention deficit hyperactivity disorder (ADHD), inattentive type, 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 [facility] [address] [address] Dec, Dental examination Z01.20 [facility] [address] [id number] [address] Nov, Dental examination Z01.20 [facility] [address] [id number] [id number] Nov, Dental examination Z01.20 [facility] [address] [address] Nov, Dental caries K02.9 [facility] [address], [place] [address]- 3944 13 Nov, 2016 High risk medication use Z79.899 [facility] [address], [place] [address]- 9174 Nov, Paranoid schizophrenia F20.0 ; Posttraumatic stress disorder F43.10 ; Attention deficit hyperactivity disorder (ADHD), inattentive type, 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 and Borderline personality disorder in adult F60.3 [facility] [address] [address] Oct, Dental caries K02.9 [facility] [id number] [place] [address]11- 6003 05 Sep, 2016 Paranoid schizophrenia F20.0 ; Posttraumatic stress disorder F43.10 and Attention deficit hyperactivity disorder (ADHD), inattentive type, 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 [facility] [id number] [place] [address] 01693- 8674 16 Aug, 2016 Paranoid schizophrenia F20.0 ; Posttraumatic stress disorder F43.10 and Attention deficit hyperactivity disorder (ADHD), inattentive type, 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 [facility] [address] [place] [address] -2562 Aug, Strep throat J02.0 and Cough R05 [facility] [id number] [place] [address] 04738- 4350 Aug, [facility] [id number] [place] [address] 05914- 6905 24 Jul, 2016 Paranoid schizophrenia F20.0 ; Posttraumatic stress disorder F43.10 and Attention deficit hyperactivity disorder (ADHD), inattentive type, 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 [facility] [address] [place] [address] 72762- 9062 Jul, [facility] [id number] [place] [address] 76752- 8958 28 Jun, 2016 Paranoid schizophrenia F20.0 ; Posttraumatic stress disorder F43.10 and Attention deficit hyperactivity disorder (ADHD), inattentive type, 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 [facility] [address] [place] [id number] 22 Jun, 2016 Dental examination Z01.20 [facility] [address] [place] [address] 18151- 9350 12 Jun, 2016 [facility] [id number] [place] [address] 50083- 5019 May, Paranoid schizophrenia F20.0 [facility] [id number] [place] [id number]- 0229 May, Paranoid schizophrenia F20.0 ; Posttraumatic stress disorder F43.10 and Attention deficit hyperactivity disorder (ADHD), inattentive type, 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 [facility] [address] [place] [address] 59022- 5443 May, [facility] [id number] [place] [address] 21456- 0438 May, Paranoid schizophrenia F20.0 [facility] [id number] [place] [address] 49618- 8438 May, [facility] [id number] [place] [address] 22274- 4651 May, Paranoid schizophrenia F20.0 [facility] [id number] [place] [address] 10672- 8485 May, Schizoaffective disorder, unspecified F25.9 [facility] [id number] [place] [address] 61110- 1577 May, Schizoaffective disorder, unspecified F25.9 [facility] [id number] [address]- 4843 May, [facility] [id number] [place] [address] 85434- 6243 May, Paranoid schizophrenia F20.0 [facility] [id number], [place] [address]- 5599 May, Paranoid schizophrenia F20.0 ; Posttraumatic stress disorder F43.10 and Attention deficit hyperactivity disorder (ADHD), inattentive type, 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 [facility] [id number], [place] [address]- 5560 Mar, [facility] [id number], [place] [address]- 7805 Mar, Paranoid schizophrenia F20.0 ; Posttraumatic stress disorder F43.10 and Attention deficit hyperactivity disorder (ADHD), inattentive type, 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 [facility] [id number], [place] [address]- 5147 Mar, Paranoid schizophrenia F20.0 [facility] [id number] [place] [address] 93199- 8958 Mar, Paranoid schizophrenia F20.0 ; Attention deficit hyperactivity disorder (ADHD), inattentive type, 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 and Posttraumatic stress disorder F43.10 [facility] [id number] [place] [address] 99865- 6660 Mar, [facility] [id number] [place] [address] 80282- 9427 Mar, Paranoid schizophrenia F20.0 ; Posttraumatic stress disorder F43.10 and Attention deficit hyperactivity disorder (ADHD), inattentive type, 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 [facility] [address], [place] [address]- 4344 February, [facility] [address] [place] [address] 05120- 2008 February, [facility] [address], [place] [address]- 5281 February, [facility] [address], [place] [address]- 8769 February, [facility] [address] [place] [address] 98689- 4721 Jan, Paranoid schizophrenia F20.0 [facility] [address] [id number] [address] Jan, Dental examination Z01.20 [facility] [address] [id number] [id number] Jan, Dental caries K02.9 [facility] [address] [id number] [address] Jan, Dental examination Z01.20 [facility] [id number] [address] Dec, Encounter for dental examination Z01.20 [facility] [address] [address] 2734 Dec, Paranoid schizophrenia F20.0 [facility] [address] [id number] [address] Dec, Dental examination Z01.20 [facility] [address], [place] [address]- 1237 Dec, [facility] [address], [place] [address]- 1956 Dec, Paranoid schizophrenia F20.0 ; Posttraumatic stress disorder F43.10 and Attention deficit hyperactivity disorder (ADHD), inattentive type, 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 [facility] [address], [place] [address]- 1119 Nov, Schizoaffective disorder, unspecified F25.9 [facility] [address], [place] [address]- 4175 Oct, Paranoid schizophrenia F20.0 [facility] [address], [place] [address]- 4035 Oct, [facility] [address], [place] [address]- 0892 Sep, Paranoid schizophrenia F20.0 ; Posttraumatic stress disorder F43.10 and Attention deficit hyperactivity disorder (ADHD), inattentive type, 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 [facility] [address], [place] [address]- 5822 Sep, [facility] [id number], [place] [address]- 2888 Sep, Paranoid schizophrenia F20.0 ; Posttraumatic stress disorder F43.10 and Attention deficit hyperactivity disorder (ADHD), inattentive type, 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 [facility] [address], [place] [address]- 5166 Aug, Paranoid schizophrenia F20.0 [facility] [address], [place] [address]- 2868 Aug, [facility] [id number] [place] [address] 24652- 2011 Aug, Posttraumatic stress disorder F43.10 ; Paranoid schizophrenia F20.0 and Attention deficit hyperactivity disorder (ADHD), inattentive type, 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 [facility] [id number] [place] [address] 78812- 5240 Jul, Bipolar disorder, unspecified F31.9 [facility] [id number] [place] [address] 51848- 5511 Jul, [facility] [id number] [place] [address] 11084- 4206 Jun, [facility] [address] [place] [address] 98723- 3480 Jun, Schizoaffective disorder, chronic 295.72 ; Posttraumatic stress disorder 309.81 and Attention deficit disorder 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 314.00 [facility] [address], [place] [address]- 5637 May, [facility] [id number] [place] [address] 61690- 8307 May, [facility] [address], [place] [address]- 5487 May, Schizoaffective disorder, chronic 295.72 ; Posttraumatic stress disorder 309.81 ; Attention deficit disorder 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 314.00 and Bipolar disorder, unspecified 296.80 [facility] [address], [place] [address]- 2377 Apr, Schizoaffective disorder, chronic 295.72 [facility] [address], [place] [address]- 0898 Apr, [facility] [address], [place] [address]- 5325 Apr, Schizoaffective disorder, chronic 295.72 ; Posttraumatic stress disorder 309.81 and Attention deficit disorder 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 314.00 [facility] [address], [place] [address]- 8575 Mar, Disorganized schizophrenia, 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 [facility] [address], [place] [address]- 4311 Mar, [facility] [id number], [place] [address]- 3958 Mar, [facility] [address], [place] [address]- 6401 Mar, [facility] [id number], [place] [address]- 7207 Mar, [facility] [address], [place] [address]- 1462 February, Schizoaffective disorder, chronic 295.72 [facility] [address], [place] [address]- 3006 February, [facility] [id number] [address]- 2521 February, Attention deficit disorder 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 314.00 ; Posttraumatic stress disorder 309.81 and Schizoaffective disorder, chronic 295.72 [facility] [address], [place] [address]- 2990 Jan, [facility] [address] 0011 Jan, [facility] [id number], [place] [address]- 3745 Jan, [facility] [id number] [place] [address]- 9644 Dec, [facility] [place] [facility] [address] [id number] [place] [address]- 5232 Dec, [facility] [place] [facility] [address] [id number] [place] [address]- 2300 Dec, [facility] [place] [facility] [address] [id number] [place] [address]- 2955 Dec, [facility] [place] [facility] [address] [id number] [place] [address] Dec, [facility] [place] [facility] [address] [id number] [place] [address] Dec, [facility] [place] [facility] [address] [id number] [place] [address]- 5822 Dec, [facility] [place] [facility] [address] [id number] [place] [address]- 7006 Dec, [facility] [place] [facility] [address] [id number] [place] [address]- 3082 27 Nov, 2014 [facility] [place] [facility] [address] [id number] [place] [address]- 5287 Nov, 2014 [facility] [place] [facility] [address] [id number] [place] [address]- 0259 25 Nov, 2014 [facility] [place] [facility] [address] [id number] [place] [address]- 6000 25 Nov, 2014 [facility] [place] [facility] [address] [id number] [place] [address]- 2549 13 Nov, 2014 [facility] [place] [facility] [address] [id number] [place] [address]- 5152 13 Nov, 2014 [facility] [place] [facility] [address] [id number] [address] 05 Nov, 2014 [facility] [place] [facility] [address] [id number], [place] [address] 8227 Nov, [facility] [place] [facility] [address] [id number] [place] [address]- 1871 Nov, [facility] [place] [facility] [address] [id number] [place] [address]- 9256 Nov, [facility] [place] [facility] [address] [id number] [place] [address]- 1424 Oct, [facility] [place] [facility] [address] [id number] [place] [address]- 5682 Oct, [facility] [place] [facility] [address] [id number] [place] [address]- 5023 Oct, [facility] [place] [facility] [address] [id number] [place] [address]- 6417 Oct, [facility] [place] [facility] [address] [id number] [place] [address]- 5929 Oct, [facility] [place] [facility] [address] [id number] [place] [address]- 7626 Oct, [facility] [place] [facility] [address] [id number] [place] [address]- 9859 Oct, [facility] [place] [facility] [address] [id number] [place] [address]- 9582 Sep, [facility] [place] [facility] [address] [id number] [place] [address]- 9176 Sep, [facility] [place] [facility] [address] [id number] [place] [address]- 3296 Sep, [facility] [place] [facility] [address] [id number] [place] [address] Sep, [facility] [place] [facility] [address] [id number] [place] [address]- 3772 Aug, [facility] [place] [facility] [address] [id number] [place] [address]- 7588 Aug, [facility] [place] [facility] [address] [id number] [place] [address]- 0054 14 Aug, 2014 [facility] [place] [facility] [address] [id number] [place] [address]- 1565 Aug, [facility] [place] [facility] [address] [id number] [place] [address]- 3329 Aug, [facility] [place] [facility] [address] [id number] [place] [address]- 1582 Aug, [facility] [place] [facility] [address] [id number] [place] [address]- 6597 Jul, [facility] [place] [facility] [address] [id number] [place] [address]- 6694 Jul, [facility] [place] [facility] [address] [id number] [place] [address]- 9233 Jul, [facility] [place] [facility] [address] [id number] [place] [address]- 7973 Jul, [facility] [place] [facility] [address] [id number] [place] [address]- 9131 Jul, [facility] [place] [facility] [address] [id number] [place] [address]- 3859 15 Jul, 2014 [facility] [place] [facility] [address] [id number] [place] [address]- 7323 27 Jun, 2014 [facility] [place] [facility] [address] [id number] [place] [address]- 6210 27 Jun, 2014 [facility] [place] [facility] [address] [id number] [place] [address]- 2543 26 Jun, 2014 [facility] [place] [facility] [address] [id number] [place] [address]- 4816 26 Jun, 2014 [facility] [place] [facility] [address] [id number] [place] [address]- 9071 26 Jun, 2014 [facility] [place] [facility] [address] [id number] [place] [address]- 5124 Jun, [facility] [place] [facility] [address] [id number] [place] [address]- 7021 Jun, [facility] [place] [facility] [address] [id number] [place] [address]- 8052 Jun, [facility] [place] [facility] [address] [id number] [place] [address]- 5616 Jun, [facility] [place] [facility] [address] [id number] [place] [address]- 4130 Jun, [facility] [place] [facility] [address] [id number] [place] [address]- 7349 Jun, [facility] [place] [facility] [address] [id number] [place] [address]- 0220 May, [facility] [place] [facility] [address] [id number] [place] [address]- 8750 May, [facility] [place] [facility] [address] [id number] [place] [address]- 4571 May, [facility] [place] [facility] [address] [id number] [place] [address]- 9657 May, [facility] [place] [facility] [address] [id number] [place] [address]- 9266 May, [facility] [place] [facility] [address] [id number] [place] [address]- 7266 May, [facility] [place] [facility] [address] [id number], [place] [address]- 1377 May, [facility] [place] [facility] [address] [id number] [place] [address]- 0303 May, [facility] [place] [facility] [address] [id number] [place] [address]- 4388 May, [facility] [place] [facility] [address] [id number] [place] [address]- 6160 May, [facility] [place] [facility] [address] [id number], [place] [address]- 2695 Apr, [facility] [place] [facility] [address] [id number] [place] [address]- 7706 Apr, [facility] [place] [facility] [address] [id number] [place] [address]- 1357 Apr, [facility] [place] [facility] [address] [id number] [place] [address]- 0657 Apr, [facility] [place] [facility] [address] [id number] [place] [address]- 7872 Apr, [facility] [place] [facility] [address] [id number] [place] [address]- 3778 Apr, [facility] [place] [facility] [address] [id number] [place] [address]- 2608 Apr, [facility] [place] [facility] [address] [id number] [place] [address]- 1434 Apr, [facility] [place] [facility] [address] [id number] [place] [address]- 0210 Apr, [facility] [place] [facility] [address] [id number] [place] [address]- 7243 Apr, [facility] [place] [facility] [address] [id number] [place] [address]- 3183 Mar, [facility] [place] [facility] [address] [id number] [place] [address]- 5290 Mar, [facility] [place] [facility] [address] [id number] [place] [address]- 2793 Mar, [facility] [place] [facility] [address] [id number] [place] [address]- 0034 Mar, [facility] [place] [facility] [address] [id number] [place] [address]- 9128 Mar, [facility] [place] [facility] [address] [id number] [place] [address]- 6854 Mar, [facility] [place] [facility] [address] [id number] [place] [address]- 4502 18 Mar, 2014 [facility] [place] [facility] [address] [id number] [place] [address]- 3996 Mar, [facility] [place] [facility] [address] [id number] [place] [address]- 2603 Mar, [facility] [place] [facility] [address] [id number] [place] [address]- 4004 Mar, [facility] [place] [facility] [address] [id number] [place] [address]- 7511 Mar, [facility] [place] [facility] [address] [id number] [place] [address]- 6157 Mar, [facility] [place] [facility] [address] [id number] [place] [address]- 8418 Mar, [facility] [place] [facility] [address] [id number] [place] [address]- 9306 Mar, [facility] [place] [facility] [address] [id number] [place] [address]- 1980 Mar, [facility] [place] [facility] [address] [id number] [place] [address]- 0720 Mar, [facility] [place] [facility] [address] [id number] [place] [address]- 5365 Mar, [facility] [place] [facility] [address] [id number] [place] [address]- 3978 Mar, [facility] [place] [facility] [address] [id number] [place] [address]- 6808 Mar, [facility] [place] [facility] [address] [id number] [place] [address]- 3515 Mar, [facility] [place] [facility] [address] [id number] [place] [address]- 8598 February, [facility] [place] [facility] [address] [id number] [place] [address]- 8775 February, [facility] [address] [id number] [place] [address]- 5308 February, [facility] [place] [facility] [address] [id number] [place] [address]- 1433 February, [facility] [place] [facility] [address] [id number] [place] [address]- 4830 February, [facility] [place] [facility] [address] [id number] [place] [address]- 1370 February, [facility] [place] [facility] [address] [id number] [place] [address]- 0877 February, [facility] [place] [facility] [address] [id number] [place] [address]- 8210 February, [facility] [place] [facility] [address] [id number] [place] [address]- 5038 February, [facility] [place] [facility] [address] [id number] [place] [address]- 4790 February, [facility] [place] [facility] [address] [id number] [place] [address]- 6228 February, [facility] [place] [facility] [address] [id number] [place] [address]- 1735 February, [facility] [place] [facility] [address] [id number] [place] [address]- 2780 February, [facility] [place] [facility] [address] [id number] [place] [address]- 1450 February, [facility] [place] [facility] [address] [id number] [place] [address]- 8544 February, [facility] [place] [facility] [address] [id number] [place] [address]- 8360 February, [facility] [place] [facility] [address] [id number] [place] [address]- 3972 February, [facility] [place] [facility] [address] [id number] [place] [address]- 4638 February, [facility] [place] [facility] [address] [id number] [place] [address]- 8808 February, [facility] [place] [facility] [address] [id number] [place] [address]- 1953 February, [facility] [place] [facility] [address] [id number] [place] [address]- 4162 February, [facility] [place] [facility] [address] [id number] [place] [address]- 6917 Jan, [facility] [place] [facility] [address] [id number] [place] [address]- 3079 Jan, [facility] [place] [facility] [address] [id number] [place] [address]- 4283 Jan, [facility] [place] [facility] [address] [id number] [place] [address]- 3776 Jan, [facility] [place] [facility] [address] [id number] [place] [address]- 1970 Jan, [facility] [place] [facility] [address] [id number] [place] [address]- 0170 Jan, [facility] [place] [facility] [address] [id number] [place] [address]- 1147 Jan, [facility] [place] [facility] [address] [id number] [place] [address]- 5917 Jan, [facility] [place] [facility] [address] [id number] [place] [address]- 1308 Dec, [facility] [place] [facility] [address] [id number] [place] [address]- 8667 Dec, [facility] [place] [facility] [address] [id number] [place] [address]- 5266 Dec, [facility] [place] [facility] [address] [id number] [place] [address]- 7479 Dec, [facility] [place] [facility] [address] [id number] [place] [address]- 1177 19 Dec, 2013 [facility] [place] [facility] [address] [id number] [place] [address]- 9005 15 Dec, 2013 [facility] [place] [facility] [address] [id number] [place] [address]- 2020 15 Dec, 2013 [facility] [place] [facility] [address] [id number] [place] [address]- 5795 11 Dec, 2013 [facility] [place] [facility] [address] [id number] [place] [address]- 5292 10 Dec, 2013 [facility] [place] [facility] [address] [id number] [place] [address]- 0677 10 Dec, 2013 [facility] [place] [facility] [address] [id number] [place] [address]- 9002 18 Nov, 2013 [facility] [place] [facility] [address] [id number] [place] [address]- 6302 Nov, [facility] [place] [facility] [address] [id number] [place] [address]- 5455 Nov, [facility] [place] [facility] [address] [id number] [place] [address]- 0897 05 Nov, 2013 [facility] [place] [facility] [address] [id number] [place] [address]- 5495 Nov, [facility] [place] [facility] [address] [id number] [place] [address]- 8396 Oct, [facility] [place] [facility] [address] [id number] [place] [address]- 1192 Oct, [facility] [place] [facility] [address] [id number] [place] [address]- 1826 16 Oct, 2013 [facility] [place] [facility] [address] [id number] [place] [address]- 7307 Sep, [facility] [place] [facility] [address] [id number] [place] [address]- 0034 Sep, [facility] [address] [id number] [place] [address]- 7634 Sep, [facility] [place] [facility] [address] [id number] [place] 1279 Sep, [facility] [place] [facility] [address] [id number] [place] [address]- 5845 Aug, [facility] [place] [facility] [address] [id number] [place] [address]- 2663 Aug, [facility] [place] [facility] [address] [id number] [place] [address]- 0054 Jul, [facility] [place] [facility] [address] [id number] [place] [address]- 1821 Jul, [facility] [address] [id number], [place] [address]- 3565 Jul, [facility] [place] [facility] [address] [id number], [place] [address]- 7388 Jul, [facility] [place] [facility] [address] [id number] [place] [address]- 2796 Jul, [facility] [place] [facility] [address] [id number], [place] [address]- 7679 25 Jun, 2013 [facility] [place] [facility] [address] [id number], [place] [address]- 8411 25 Jun, 2012 [facility] [place] [facility] [address] [id number], [place] [address]- 8477 19 Sep, 2012 [facility] [place] [facility] [address] [id number], [place] [address]- 3142 18 Sep, 2012 [facility] [place] [facility] [address] [id number], [place] [address]- 7600 16 Sep, 2012 [facility] [place] [facility] [address] [id number], [place] [address]- 7036 12 Sep, 2012 [facility] [place] [facility] [address] [id number] [place] [address]- 7527 Jun, [facility] [address] [id number] [place] [address]- 2690 May, [facility] [place] [facility] [address] [id number] [place] [address]- 3667 May, [facility] [place] [facility] [address] [id number] [place] [address]- 1174 Apr, [facility] [place] [facility] [address] [id number] [place] [address]- 0415 Apr, [facility] [place] [facility] [address] [id number] [place] [address]- 5701 Apr, [facility] [address] [id number] [place] [address]- 3341 Mar, [facility] [address] [id number] [place] [address]- 7958 Mar, [facility] [address] [id number] [place] [address]- 3778 February, [facility] [address] [id number] [place] [address]- 1295 February, [facility] [address] [id number] [place] [address]- 8902 February, [facility] [address] [id number] [place] [address]- 1246 February, [facility] [place] [facility] [address] [id number] [place] [address]- 8147 Jan, [facility] [place] [facility] [address] [id number] [place] [address]- 2974 17 Jan, 2013 [facility] [place] [facility] [address] [id number] [place] [address]- 5066 16 Jan, 2013 [facility] [place] [facility] [address] [id number] [place] [address]- 1488 Dec, [facility] [address] [id number] [place] [address]- 3194 Dec, [facility] [place] [facility] [address] [id number] [place] [address]- 2104 Dec, [facility] [place] [facility] [address] [id number] [place] 0133 Dec, [facility] [place] [facility] [address] [id number] [place] [address]- 8396 Nov, [facility] [place] [facility] [address] [id number] [place] [address]- 7549 Nov, [facility] [place] [facility] [address] [id number] [place] [address]- 4338 Oct, [facility] [place] [facility] [address] [id number] [place] [address]- 8985 Oct, [facility] [place] [facility] [address] [id number] [place] [address]- 2880 Oct, [facility] [place] [facility] [address] [id number] [place] [address]- 4909 Oct, [facility] [place] [facility] [address] [id number] [place] [address]- 9111 Aug, [facility] [place] [facility] [address] [id number] [place] [address]- 2611 Aug, [facility] [place] [facility] [address] [id number] [place] [address]- 8956 Jun, [facility] [place] [facility] [address] [id number] [place] [address]- 4984 May, [facility] [place] [facility] [address] [id number] [place] [address]- 9891 May, [facility] [place] [facility] [address] [id number] [place] [address]- 8690 Apr, [facility] [place] [facility] [address] [id number] [place] [address]- 5068 Apr, [facility] [address] [id number] [place] [address]- 8061 Apr, [facility] [address] [id number] [place] [address] Mar, [facility] [address] [id number] [place] [address] Mar, [facility] [address] [id number] [place] [address] Mar, [facility] [address] [id number] [place] [address] Mar, [facility] [address] [id number] [place] [address] Mar, [facility] [address] [id number] [place] [address] February, [facility] [address] [id number] [place] [address]105 February, [facility] [address] [id number] [place] [address] February, [facility] [address] [id number] [place] [address] February, [facility] [address] [id number] [place] [address]27 February, [facility] [address] [id number] [place] [address] 8685 February, [facility] [place] [facility] [address] [id number] [place] [address]166 February, [facility] [address] [id number] [place] [address] Jan, [facility] [address] [id number] [place] [address]328 Jan, [facility] [address] [id number] [place] [address] 8961 17 Jan, 2012 [facility] [place] [facility] [address] [id number] [place] [address] 13 Jan, 2012 [facility] [place] [facility] [address] [id number] [place] [address]396 10 Jan, 2012 [facility] [place] [facility] [address] [id number] [place] [address]- [address]206 04 Jan, 2012 [facility] [place] [facility] [address] [id number] [place] [address]- [address] 30 Dec, 2011 [facility] [place] [facility] [address] [id number] [place] [address]- [address]26 24 Dec, 2011 [facility] [place] [facility] [address] [id number] [place] [address]- 4063 20 Dec, 2011 [facility] [place] [facility] [address] [id number] [place] [address]- 1758 13 Dec, 2011 [facility] [place] [facility] [address] [id number] [place] [address]- 7960 06 Dec, 2011 [facility] [place] [facility] [address] [id number] [place] [address] 9942 28 Nov, 2011 [facility] [place] [facility] [address] [id number] [place] [address] 9296 27 Nov, 2011 [facility] [place] [facility] [address] [id number] [place] [address]- [address]876 25 Nov, 2011 [facility] [place] [facility] [address] [id number] [place] [address]- [address]386 14 Nov, 2011 [facility] [place] [facility] [address] [id number] [place] [address]- 5986 10 Nov, 2011 [facility] [place] [facility] [address] [id number] [place] [address]- 4226 01 Nov, 2011 [facility] [place] [facility] [address] [id number] [place] [address] 3426 Oct, [facility] [address] [id number] [place] [address] 9599 Oct, [facility] [address] [id number] [place] [address]66 Oct, [facility] [address] [id number] [place] [address]- 1298 Oct, [facility] [address] [id number] [place] [address] 2934 Oct, [facility] [address] [id number] [place] [address] Sep, [facility] [address] [id number] [place] [address]35 Sep, [facility] [address] [id number] [place] [address]- 4735 Sep, [facility] [address] [id number] [place] [address]- 8198 14 Sep, 2011 [facility] [address] [id number] [place] [address]- 0467 14 Sep, 2011 [facility] [address] [id number] [place] [address]- 0659 13 Sep, 2011 [facility] [address] [id number] [place] [address]- 9521 Sep, [facility] [address] [id number] [place] [address]- 2581 Sep, [facility] [place] [facility] [address] [id number] [place] [address]- 3567 05 Sep, 2011 [facility] [place] [facility] [address] [id number] [place] [id number] [address] 30 Aug, 2011 [facility] [address] [id number] [place] [address]- 0486 Aug, [facility] [place] [facility] [address] [id number] [place] [address]- 2270 Aug, [facility] [place] [facility] [address] [id number] [place] [address]- 4987 Aug, [facility] [place] [facility] [address] [id number] [place] [address]- 6332 Aug, [facility] [place] [facility] [address] [id number] [place] [address]- 3269 Aug, [facility] [place] [facility] [address] [id number] [place] [address]- 0328 Aug, [facility] [place] [facility] [address] [id number] [place] [address]- 0373 Aug, [facility] [place] [facility] [address] [id number] [place] [address]- 4270 Aug, [facility] [place] [facility] [address] [id number] [place] [address] 1117 Aug, [facility] [place] [facility] [address] [id number] [place] [address]- 7959 Aug, [facility] [place] [facility] [address] [id number] [place] [address]- 4239 Aug, [facility] [place] [facility] [address] [id number] [place] [address]- 4846 Jul, [facility] [place] [facility] [address] [id number], [place] [address] Jul, [facility] [place] [facility] [address] [id number] [place] [address]- 1406 Jul, [facility] [place] [facility] [address] [id number] [place] [address]- 0218 Jul, [facility] [place] [facility] [address] [id number], [place] [address] Jul, [facility] [place] [facility] [address] [id number], [place] [address]- [address]24 Jul, [facility] [id number] [address] Jul, [facility] [address] [facility] [id number], [place] [address] Jul, [facility] [id number] [address] Jul, [facility] [id number], [place] [address] Jul, [facility] [id number], [place] [address] Nov, [facility] [id number] [address] Aug, [facility] [id number] [address] Aug, [facility] [id number], [place] [address] Aug, [facility] [id number], [place] [address] Aug, [facility] [id number], [place] [address] Jul, IMMUNIZATIONS No Known Immunizations SOCIAL HISTORY Never Assessed REASON FOR VISIT med refill PLAN OF CARE VITAL SIGNS MEDICATIONS Medication Instructions Dosage Frequency Start Date End Date Duration Status Cyproheptadine HCl 4 MG Orally Twice a [...] History [facility] 01/30/2018-02/10/2008 Hospitalization History [facility] 05/04/18-05/09/18
--- OUTSIDE RECORDS SUMMARY | 2018-08-15 20:21 | XMS REPORT ---
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 29704580 Problem Schizoaffective disorder, depressive type F25.1 Active 73451706 Problem Borderline personality disorder F60.3 Active 94257352 Problem Attention deficit hyperactivity disorder (ADHD), inattentive type, 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 39250084 Problem Schizoaffective disorder, unspecified F25.9 Active 29667255 Problem High risk medication use Z79.899 Active 303580110 Problem Posttraumatic stress disorder F43.10 Active 12299509 Problem Obsessive-compulsive disorders 300.3 Active 678508274 Problem Generalized anxiety disorder 300.02 Active 60764517 Problem Attention deficit disorder 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 314.00 Active 69418170 Problem Bipolar disorder, unspecified 296.80 Active 72763960 Problem Posttraumatic stress disorder 309.81 Active 45630026 Problem Paranoid schizophrenia, unspecified condition 295.30 Active 84400420 ALLERGIES Substance Reaction Event Type Date Status Latuda agitation Drug Allergy Mar, Active Penicillamine bronchospasm and rash Drug Allergy Mar, Active Cephalexin visual disturbances Drug Allergy Mar, Active Ceftin visual disturbance Drug Allergy Mar, Active Biaxin bronchospasm Drug Allergy Mar, Active Cymbalta 30 Mg Capsule, Delayed Release(e.c.) nausea Non Drug Allergy Mar Active Brintellix 10 Mg Tablet nausea and vomiting Non Drug Allergy Mar, Active ENCOUNTERS Encounter Location Date Diagnosis [facility] [address] [facility] [address] [id number] [address] May, [facility] [address], [place] [address] May, [facility] [id number], [place] [address] May, Paranoid schizophrenia F20.0 [facility] [address], [place] [address] May, Paranoid schizophrenia F20.0 ; Posttraumatic stress disorder F43.10 ; Attention deficit hyperactivity disorder (ADHD), inattentive type, 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 and Borderline personality disorder F60.3 [facility] [address], [place] [address] Apr, [facility] [address], [place] [address] Apr, Paranoid schizophrenia F20.0 ; Posttraumatic stress disorder F43.10 ; Attention deficit hyperactivity disorder (ADHD), inattentive type, 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 and Borderline personality disorder F60.3 [facility] [address], [place] [address] Apr, [facility] [address], [place] [address] Apr, Schizoaffective disorder, depressive type F25.1 and Borderline personality disorder F60.3 [facility] [address], [place] [address] Apr, Paranoid schizophrenia F20.0 ; Posttraumatic stress disorder F43.10 ; Attention deficit hyperactivity disorder (ADHD), inattentive type, 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 and Borderline personality disorder F60.3 [facility] [address], [place] [address] Apr, [facility] [id number], [place] [address] Apr, Paranoid schizophrenia F20.0 ; Posttraumatic stress disorder F43.10 ; Attention deficit hyperactivity disorder (ADHD), inattentive type, 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 and Borderline personality disorder F60.3 [facility] [address] [facility] [address] [id number], [place] [address] Apr, [facility] [id number] [place] [address] Mar, Paranoid schizophrenia F20.0 [facility] [id number], [place] [address] Mar, [facility] [id number], [place] [address] Mar, Paranoid schizophrenia F20.0 ; Posttraumatic stress disorder F43.10 ; Attention deficit hyperactivity disorder (ADHD), inattentive type, 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 and Borderline personality disorder F60.3 [facility] [id number], [place] [address] February, Paranoid schizophrenia F20.0 [facility] [id number], [place] [address] February, Paranoid schizophrenia F20.0 ; Posttraumatic stress disorder F43.10 ; Attention deficit hyperactivity disorder (ADHD), inattentive type, 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 and Borderline personality disorder F60.3 [facility] [id number], [place] [address] February, Paranoid schizophrenia F20.0 ; Posttraumatic stress disorder F43.10 ; Attention deficit hyperactivity disorder (ADHD), inattentive type, 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 and Borderline personality disorder F60.3 [facility] [id number], [place] [address] February, [facility] [id number], [place] [address] 4[address] February, Paranoid schizophrenia F20.0 [facility] [id number], [place] [address] 66[address] February, Paranoid schizophrenia F20.0 [facility] [address], [place] [address] February, Paranoid schizophrenia F20.0 ; Posttraumatic stress disorder F43.10 ; Attention deficit hyperactivity disorder (ADHD), inattentive type, 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 and Borderline personality disorder F60.3 [facility] [address], [place] [address] Jan, Paranoid schizophrenia F20.0 ; Posttraumatic stress disorder F43.10 ; Attention deficit hyperactivity disorder (ADHD), inattentive type, 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 and Borderline personality disorder F60.3 [facility] [address], [place] [address] Jan, Paranoid schizophrenia F20.0 [facility] [address], [place] [address] 1779 Jan, Paranoid schizophrenia F20.0 [facility] [address] [id number] [address] Jan, Paranoid schizophrenia F20.0 ; Posttraumatic stress disorder F43.10 ; Attention deficit hyperactivity disorder (ADHD), inattentive type, 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 and Borderline personality disorder F60.3 [facility] [address], [place] [address] Dec, [facility] [address], [place] [address] 80[address] Nov, Paranoid schizophrenia F20.0 ; Posttraumatic stress disorder F43.10 ; Attention deficit hyperactivity disorder (ADHD), inattentive type, 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 and Borderline personality disorder F60.3 [facility] [address], [place] [address] 34[address] Nov, [facility] [address], [place] [address] 76[address] Oct, Paranoid schizophrenia F20.0 [facility] [address], [place] [address] 45[address] Oct, Paranoid schizophrenia F20.0 ; Posttraumatic stress disorder F43.10 ; Attention deficit hyperactivity disorder (ADHD), inattentive type, 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 ; Borderline personality disorder F60.3 and Other care home ( 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 Z79.899 [facility] [address], [place] [address] 0[address] Oct, [facility] [address], [place] [address] 2466 Oct, [facility] [address], [place] [address]- 0[address] Sep, [facility] [address], [place] [address] 8[address] Sep, Paranoid schizophrenia F20.0 ; Posttraumatic stress disorder F43.10 ; Attention deficit hyperactivity disorder (ADHD), inattentive type, 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 and Borderline personality disorder F60.3 [facility] [address], [place] [address] 8960 Sep, Paranoid schizophrenia F20.0 [facility] [address], [place] [address]- 7[address] Aug, Paranoid schizophrenia F20.0 ; Posttraumatic stress disorder F43.10 ; Attention deficit hyperactivity disorder (ADHD), inattentive type, 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 and Borderline personality disorder F60.3 [facility] [id number], [place] [address] Aug, Paranoid schizophrenia F20.0 ; Posttraumatic stress disorder F43.10 ; Attention deficit hyperactivity disorder (ADHD), inattentive type, 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 and Borderline personality disorder F60.3 [facility] [address], [place] [address] Aug, [facility] [address], [place] [address] 4[address] Jul, Paranoid schizophrenia F20.0 ; Posttraumatic stress disorder F43.10 ; Attention deficit hyperactivity disorder (ADHD), inattentive type, 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 and Borderline personality disorder F60.3 [facility] [address] [id number], [place] [address] Jul, Paranoid schizophrenia F20.0 [facility] [address] [facility] [id number] [place] [address] [address] Jul, Paranoid schizophrenia F20.0 ; Posttraumatic stress disorder F43.10 ; Attention deficit hyperactivity disorder (ADHD), inattentive type, 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 and Borderline personality disorder F60.3 [facility] [address] [facility] [address] [id number], [place] [address] Jun, Paranoid schizophrenia F20.0 ; Posttraumatic stress disorder F43.10 ; Attention deficit hyperactivity disorder (ADHD), inattentive type, 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 and Borderline personality disorder F60.3 [facility] [id number], [place] [address] May, 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.899 [facility] [address] [facility] [id number], [place] [address] May, [facility] [id number], [place] [address] 8106 May, [facility] [address] [facility] [address] [id number], [place] [address]- 4[address] May, Attention deficit hyperactivity disorder (ADHD), inattentive type, 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 [facility] [id number], [place] [address] 8400 May, [facility] [address] [facility] [address] [id number], [place] [address] 8066 May, Attention deficit hyperactivity disorder (ADHD), inattentive type, 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 [facility] [address] [facility] [id number], [place] [address] 9428 May, Paranoid schizophrenia F20.0 ; Posttraumatic stress disorder F43.10 ; Attention deficit hyperactivity disorder (ADHD), inattentive type, 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 and 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.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 [facility] [address], [place] [address]- 3909 Apr, Paranoid schizophrenia F20.0 [facility] [address], [place] [address]- 0069 Apr, Paranoid schizophrenia F20.0 ; Posttraumatic stress disorder F43.10 and Attention deficit hyperactivity disorder (ADHD), inattentive type, 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 [facility] [address], [place] [address] February, [facility] [address], [place] [address] 5147 February, Paranoid schizophrenia F20.0 ; Posttraumatic stress disorder F43.10 and Attention deficit hyperactivity disorder (ADHD), inattentive type, 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 [facility] [address], [place] [address]- 1021 February, Paranoid schizophrenia F20.0 ; Posttraumatic stress disorder F43.10 and Attention deficit hyperactivity disorder (ADHD), inattentive type, 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 [facility] [address], [place] [address]- 1227 Jan, Paranoid schizophrenia F20.0 ; Posttraumatic stress disorder F43.10 and Attention deficit hyperactivity disorder (ADHD), inattentive type, 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 [facility] [address] [id number] [id number] Dec, Dental examination Z01.20 [facility] [address] [id number] [address] Nov, Dental examination Z01.20 [facility] [address] [id number][place] [address] Nov, Dental examination Z01.20 [facility] [address] [id number] [id number] Nov, Dental caries K02.9 [facility] [address], [place] [address]- 3[address] 13 Nov, 2016 High risk medication use Z79.899 [facility] [id number] [place] [address]- 4495 01 Nov, 2016 Paranoid schizophrenia F20.0 ; Posttraumatic stress disorder F43.10 ; Attention deficit hyperactivity disorder (ADHD), inattentive type, 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 and Borderline personality disorder in adult F60.3 [facility] [address] [place] [id number] Oct, Dental caries K02.9 [facility] [id number] [place] [address] 31996- 4574 05 Sep, 2016 Paranoid schizophrenia F20.0 ; Posttraumatic stress disorder F43.10 and Attention deficit hyperactivity disorder (ADHD), inattentive type, 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 [facility] [address] [place] [address] 32186- 2437 Aug, Paranoid schizophrenia F20.0 ; Posttraumatic stress disorder F43.10 and Attention deficit hyperactivity disorder (ADHD), inattentive type, 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 [facility] [address] [place] [address]99 Aug, Strep throat J02.0 and Cough R05 [facility] [address], [place] [address]- 2782 Aug, [facility] [id number] [place] [address] 9447 Jul, Paranoid schizophrenia F20.0 ; Posttraumatic stress disorder F43.10 and Attention deficit hyperactivity disorder (ADHD), inattentive type, 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 [facility] [address] [place] [address] 31108- 4769 Jul, [facility] [address] [place] [address] 84279- 0344 Jun, Paranoid schizophrenia F20.0 ; Posttraumatic stress disorder F43.10 and Attention deficit hyperactivity disorder (ADHD), inattentive type, 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 [facility] [address] [id number] [address] Jun, Dental examination Z01.20 [facility] [address] [id number], [place] [address] 2545 Jun, [facility] [id number] [place] [address]162- 6203 May, Paranoid schizophrenia F20.0 [facility] [id number] [place] [address] 75343- 8529 May, Paranoid schizophrenia F20.0 ; Posttraumatic stress disorder F43.10 and Attention deficit hyperactivity disorder (ADHD), inattentive type, 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 [facility] [address] [facility] [address] [id number] [address] [address] May, [facility] [address] [facility] [address] [id number] [address] [address]60 May, Paranoid schizophrenia F20.0 [facility] [address] [id number], [place] [address]- 7399 May, [facility] [address] [facility] [address] [id number], [place] [address]- 6910 May, Paranoid schizophrenia F20.0 [facility] [address] [id number], [place] [address] 2541 May, Schizoaffective disorder, unspecified F25.9 [facility] [address] [id number], [place] [address] 2545 May, Schizoaffective disorder, unspecified F25.9 [facility] [address] [facility] [address] [id number], [place] [address]- 2542 May, [facility] [address] [facility] [id number] 4735 May, Paranoid schizophrenia F20.0 [facility] [address] [id number], [place] [address]- 3793 May, Paranoid schizophrenia F20.0 ; Posttraumatic stress disorder F43.10 and Attention deficit hyperactivity disorder (ADHD), inattentive type, 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 [facility] [address] [id number], [place] [address]- 0010 Mar, [facility] [id number], [place] [address]- 7391 Mar, Paranoid schizophrenia F20.0 ; Posttraumatic stress disorder F43.10 and Attention deficit hyperactivity disorder (ADHD), inattentive type, 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 [facility] [address] [id number], [place] [address]- 0241 Mar, Paranoid schizophrenia F20.0 [facility] [id number], [place] [address]- 2354 Mar, Paranoid schizophrenia F20.0 ; Attention deficit hyperactivity disorder (ADHD), inattentive type, 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 and Posttraumatic stress disorder F43.10 [facility] [id number], [place] [address]- 2411 Mar, [facility] [id number], [place] [address]- 0329 Mar, Paranoid schizophrenia F20.0 ; Posttraumatic stress disorder F43.10 and Attention deficit hyperactivity disorder (ADHD), inattentive type, 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 [facility] [address], [place] [address]- 7006 February, [facility] [id number], [place] [address]- 9407 February, [facility] [id number], [place] [address]- 0284 February, [facility] [id number], [place] [address]- 9010 February, [facility] [address] [address] Jan, Paranoid schizophrenia F20.0 [facility] [address] [id number][place] [id number] Jan, Dental examination Z01.20 [facility] [address] [id number] [address] Jan, Dental caries K02.9 [facility] [id number] [place] [address] [id number] Jan, Dental examination Z01.20 [facility] [address] [id number][place] [address] Dec, Encounter for dental examination Z01.20 [facility] [address] [place] [address] 299929- 5071 Dec, Paranoid schizophrenia F20.0 [facility] [address] [id number][place] [address] Dec, Dental examination Z01.20 [facility] [address], [place] [address]- 4185 Dec, [facility] [id number] [place] [address] 58072- 0320 Dec, Paranoid schizophrenia F20.0 ; Posttraumatic stress disorder F43.10 and Attention deficit hyperactivity disorder (ADHD), inattentive type, 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 [facility] [address], [place] [address]- 4008 Sep, [facility] [id number] [place] [address] 23960- 9176 Sep, Paranoid schizophrenia F20.0 ; Posttraumatic stress disorder F43.10 and Attention deficit hyperactivity disorder (ADHD), inattentive type, 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 [facility] [id number] [place] [address] 30327- 1430 Aug, Paranoid schizophrenia F20.0 [facility] [id number] [place] [address] 13100- 9978 Aug, [facility] [id number] [place] [address] 05404- 1431 Aug, Posttraumatic stress disorder F43.10 ; Paranoid schizophrenia F20.0 and Attention deficit hyperactivity disorder (ADHD), inattentive type, 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 [facility] [id number] [place] [address] 27092- 8332 Jul, Bipolar disorder, unspecified F31.9 [facility] [id number] [place] [address] 76148- 8203 Jul, [facility] [id number] [place] [address] 67473- 2471 Jun, [facility] [id number] [place] [address] 23115- 4872 Jun, Schizoaffective disorder, chronic 295.72 ; Posttraumatic stress disorder 309.81 and Attention deficit disorder 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 314.00 [facility] [id number] [place] [address] 14717- 2982 May, [facility] [id number] [place] [address] 63498- 0836 May, [facility] [address] [id number], [place] [address]- 2244 May, Schizoaffective disorder, chronic 295.72 ; Posttraumatic stress disorder 309.81 ; Attention deficit disorder 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 314.00 and Bipolar disorder, unspecified 296.80 [facility] [address], [place] [address]- 8594 Apr, Schizoaffective disorder, chronic 295.72 [facility] [address] [id number], [place] [address]- 5434 Apr, [facility] [address], [place] [address]- 9622 Apr, Schizoaffective disorder, chronic 295.72 ; Posttraumatic stress disorder 309.81 and Attention deficit disorder 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 314.00 [facility] [address], [place] [address]- 7422 Mar, Disorganized schizophrenia, 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 [facility] [address], [place] [address]- 5324 Mar, [facility] [address], [place] [address]- 4012 Mar, [facility] [address], [place] [address]- 9131 Mar, [facility] [address], [place] [address]- 2905 Mar, [facility] [address], [place] [address]- 9159 February, Schizoaffective disorder, chronic 295.72 [facility] [address], [place] [address]- 0702 February, [facility] [address], [place] [address]- 9735 February, Attention deficit disorder 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 314.00 ; Posttraumatic stress disorder 309.81 and Schizoaffective disorder, chronic 295.72 [facility] [address] [id number] [place] [address]- 9680 29 Jan, 2015 [facility] [place] [facility] [address] [id number] [place] [address]- 6821 14 Jan, 2015 [facility] [place] [facility] [address] [id number] [place] [address]- 1757 13 Jan, 2015 [facility] [place] [facility] [address] [id number] [place] [address] Dec, [facility] [place] [facility] [address] [id number] [place] [address]36 Dec, [facility] [place] [facility] [address] [id number] [place] [address] 9718 Dec, [facility] [place] [facility] [address] [id number] [place] [address]- 7254 Dec, [facility] [place] [facility] [address] [id number] [place] [address] 8467 Dec, [facility] [place] [facility] [address] [id number] [place] [address] 5910 Dec, [facility] [place] [facility] [address] [id number] [place] [address]- 1173 Dec, [facility] [place] [facility] [address] [id number] [place] [address]- 3853 Dec, [facility] [place] [facility] [address] [id number] [place] [address]- 4760 Nov, [facility] [place] [facility] [address] [id number] [place] [address]- 6042 Nov, [facility] [place] [facility] [address] [id number] [place] [address]- 2323 Nov, [facility] [place] [facility] [address] [id number] [place] [address]- 3193 Nov, [facility] [place] [facility] [address] [id number] [place] [address]- 9051 Nov, [facility] [place] [facility] [address] [id number] [place] [address]- 4994 Nov, [facility] [place] [facility] [address] [id number] [place] [address]- 6029 Nov, [facility] [place] [facility] [address] [id number] [place] [address]- 5378 Nov, [facility] [place] [facility] [address] [id number] [place] [address]- 5657 Nov, [facility] [place] [facility] [address] [id number] [place] [address]- 3108 Nov, [facility] [place] [facility] [address] [id number] [place] [address]- 8311 Oct, [facility] [place] [facility] [address] [id number] [place] [address]- 1997 Oct, [facility] [place] [facility] [address] [id number] [place] [address]- 1188 Oct, [facility] [place] [facility] [address] [id number] [place] [address]- 7605 Oct, [facility] [place] [facility] [address] [id number] [place] [address]- 5313 Oct, [facility] [place] [facility] [address] [id number] [place] [address]- 6880 Oct, [facility] [place] [facility] [address] [id number] [place] [address]- 6689 Oct, [facility] [place] [facility] [address] [id number] [place] [address]- 1451 Sep, [facility] [place] [facility] [address] [id number] [place] [address] Sep, [facility] [place] [facility] [address] [id number] [place] [address]- 7068 Sep, [facility] [place] [facility] [address] [id number] [place] [address]- 4173 Sep, [facility] [place] [facility] [address] [id number] [place] [address]- 9895 Aug, [facility] [place] [facility] [address] [id number] [place] [address]- 3388 Aug, [facility] [place] [facility] [address] [id number] [place] [address]- 9161 Aug, [facility] [place] [facility] [address] [id number] [place] [address]- 1571 Aug, [facility] [place] [facility] [address] [id number] [place] [address]- 2728 Aug, [facility] [place] [facility] [address] [id number] [place] [address]- 4658 Aug, [facility] [place] [facility] [address] [id number] [place] [address]- 6430 Jul, [facility] [place] [facility] [address] [id number] [place] [address]- 0763 Jul, [facility] [place] [facility] [address] [id number] [place] [address]- 8613 Jul, [facility] [place] [facility] [address] [id number] [place] [address]- 7365 Jul, [facility] [place] [facility] [address] [id number] [place] [address]- 4173 Jul, [facility] [place] [facility] [address] [id number] [place] [address]- 7020 Jul, [facility] [place] [facility] [address] [id number] [place] [address]- 1345 Jun, [facility] [place] [facility] [address] [id number] [place] [address]- 1946 27 Jun, 2014 [facility] [place] [facility] [address] [id number] [place] [address]- 0125 Jun, 2013 [facility] [place] [facility] [address] [id number] [place] [address]- 2848 Jun, 2013 [facility] [place] [facility] [address] [id number] [place] [address]- 4556 Jun, 2013 [facility] [place] [facility] [address] [id number] [place] [address]- 0103 Jun, 2013 [facility] [place] [facility] [address] [id number] [place] [address]- 7538 Jun, 2013 [facility] [place] [facility] [address] [id number] [place] [address]- 1609 Jun, 2013 [facility] [place] [facility] [address] [id number] [place] [address]- 9255 Jun, 2013 [facility] [place] [facility] [address] [id number] [place] [address]- 5353 Jun, 2013 [facility] [place] [facility] [address] [id number] [place] [address]- 7065 Jun, [facility] [place] [facility] [address] [id number] [place] [address]- 5879 May, [facility] [place] [facility] [address] [id number] [place] [address]- 0517 May, [facility] [place] [facility] [address] [id number] [place] [address]- 2356 May, [facility] [place] [facility] [address] [id number] [place] [address]- 7237 May, [facility] [place] [facility] [address] [id number] [place] [address]- 8458 May, [facility] [place] [facility] [address] [id number] [place] [address]- 7645 May, [facility] [place] [facility] [address] [id number] [place] [address] 1965 May, [facility] [place] [facility] [address] [id number] [place] [address]- 8935 May, [facility] [place] [facility] [address] [id number] [place] [address]- 1670 May, [facility] [place] [facility] [address] [id number] [place] [address]- 4596 May, [facility] [place] [facility] [address] [id number] [place] [address]- 6776 Apr, [facility] [place] [facility] [address] [id number] [place] [address]- 5523 Apr, [facility] [place] [facility] [address] [id number] [place] [address]- 4567 Apr, [facility] [place] [facility] [address] [id number] [place] [address]- 2993 Apr, [facility] [place] [facility] [address] [id number] [place] [address]- 2821 Apr, [facility] [place] [facility] [address] [id number] [place] [address]- 4838 Apr, [facility] [place] [facility] [address] [id number] [place] [address]- 1544 Apr, [facility] [place] [facility] [address] [id number] [place] [address]- 1325 Apr, [facility] [place] [facility] [address] [id number] [place] [address]- 7387 Apr, [facility] [place] [facility] [address] [id number] [place] [address]- 5297 Apr, [facility] [place] [facility] [address] [id number] [place] [address]- 5444 Mar, [facility] [place] [facility] [address] [id number] [place] [address]- 2775 Mar, [facility] [place] [facility] [address] [id number] [place] [address]- 4967 Mar, [facility] [place] [facility] [address] [id number] [place] [address]- 2878 24 Mar, 2014 [facility] [place] [facility] [address] [id number] [place] [address]- 4312 Mar, [facility] [place] [facility] [address] [id number] [place] [address]- 1638 18 Mar, 2014 [facility] [place] [facility] [address] [id number] [place] [address]- 9781 Mar, [facility] [place] [facility] [address] [id number] [place] [address]- 9407 Mar, [facility] [place] [facility] [address] [id number] [place] [address]- 4944 Mar, [facility] [place] [facility] [address] [id number] [place] [address]- 1850 Mar, [facility] [place] [facility] [address] [id number] [place] [address]- 2776 Mar, [facility] [place] [facility] [address] [id number] [place] [address]- 3330 Mar, [facility] [place] [facility] [address] [id number] [place] [address]- 1653 Mar, [facility] [place] [facility] [address] [id number], [place] [address]- 4387 Mar, [facility] [place] [facility] [address] [id number], [place] [address]- 6316 Mar, [facility] [place] [facility] [address] [id number] [place] [address]- 7718 Mar, [facility] [place] [facility] [address] [id number] [place] [address]- 6079 Mar, [facility] [place] [facility] [address] [id number], [place] [address]- 9179 09 Mar, 2014 [facility] [place] [facility] [address] [id number], [place] [address]- 2121 Mar, [facility] [address] [id number] [place] [address]- 1107 Mar, [facility] [place] [facility] [address] [id number] [place] [address]- 8257 February, [facility] [place] [facility] [address] [id number] [place] [address]- 8363 February, [facility] [place] [facility] [address] [id number] [place] [address]- 1710 February, [facility] [place] [facility] [address] [id number] [place] [address]- 1242 February, [facility] [place] [facility] [address] [id number] [place] [address]- 5614 February, [facility] [place] [facility] [address] [id number] [place] [address]- 1887 February, [facility] [place] [facility] [address] [id number] [place] [address]- 0385 February, [facility] [place] [facility] [address] [id number] [place] [address]- 1339 February, [facility] [place] [facility] [address] [id number] [place] [address]- 1128 February, [facility] [place] [facility] [address] [id number] [place] [address]- 6415 February, [facility] [place] [facility] [address] [id number] [place] [address]- 3157 February, [facility] [place] [facility] [address] [id number] [place] [address]- 4780 February, [facility] [place] [facility] [address] [id number] [place] [address]- 1831 February, [facility] [place] [facility] [address] [id number] [place] [address]- 6483 February, [facility] [place] [facility] [address] [id number] [place] [address]- 1423 February, [facility] [place] [facility] [address] [id number] [place] [address]- 9623 February, [facility] [place] [facility] [address] [id number] [place] [address] February, [facility] [place] [facility] [address] [id number] [place] [address]- 3950 February, [facility] [place] [facility] [address] [id number] [place] [address]- 1881 February, [facility] [place] [facility] [address] [id number] [place] [address]- 7976 February, [facility] [place] [facility] [address] [id number] [place] [address]- 0891 February, [facility] [place] [facility] [address] [id number] [place] [address]- 8164 Jan, [facility] [place] [facility] [address] [id number] [place] [address]- 9790 Jan, [facility] [place] [facility] [address] [id number] [place] [address]- 9084 Jan, [facility] [place] [facility] [address] [id number] [place] [address]- 7343 Jan, [facility] [place] [facility] [address] [id number] [place] [address]- 0827 Jan, [facility] [place] [facility] [address] [id number] [place] [address]- 1212 Jan, [facility] [place] [facility] [address] [id number] [place] [address]- 9568 Jan, [facility] [place] [facility] [address] [id number] [place] [address]- 2697 Jan, [facility] [place] [facility] [address] [id number] [place] [address]- 9989 21 Dec, 2013 [facility] [place] [facility] [address] [id number] [place] [address]- 6913 20 Dec, 2013 [facility] [place] [facility] [address] [id number] [place] [address]- 7127 20 Dec, 2013 [facility] [place] [facility] [address] [id number] [place] [address]- 8513 19 Dec, 2013 [facility] [place] [facility] [address] [id number] [place] [address]- 7873 19 Dec, 2013 [facility] [place] [facility] [address] [id number] [place] [address]- 6798 15 Dec, 2013 [facility] [place] [facility] [address] [id number] [place] [address]- 2406 15 Dec, 2013 [facility] [place] [facility] [address] [id number] [place] [address]- 9066 11 Dec, 2013 [facility] [place] [facility] [address] [id number] [place] [address]- 3741 10 Dec, 2013 [facility] [place] [facility] [address] [id number] [place] [address]- 8609 10 Dec, 2013 [facility] [place] [facility] [address] [id number] [place] [address]- 7240 18 Nov, 2013 [facility] [place] [facility] [address] [id number] [place] [address]- 6249 17 Nov, 2013 [facility] [place] [facility] [address] [id number] [place] [address]- 0033 Nov, [facility] [place] [facility] [address] [id number] [place] [address]- 5605 05 Nov, 2013 [facility] [place] [facility] [address] [id number] [place] [address]- 5966 05 Nov, 2013 [facility] [place] [facility] [address] [id number] [place] [address]- 3197 Oct, [facility] [place] [facility] [address] [id number] [place] [address]- 2994 Oct, [facility] [address] [id number] [place] [address]- 4925 Oct, [facility] [address] [id number] [place] [address]- 6055 Sep, [facility] [address] [id number] [place] [address]- 4942 Sep, [facility] [address] [id number] [place] [address]- 4274 Sep, [facility] [address] [id number] [place] [address]- 7033 Sep, [facility] [address] [id number] [place] [address]- 1880 Aug, [facility] [address] [id number] [place] [address]- 1842 Aug, [facility] [address] [id number] [place] [address]- 5724 Jul, [facility] [address] [id number] [place] [address]- 6037 Jul, [facility] [address] [id number] [place] [address]- 4795 Jul, [facility] [place] [facility] [address] [id number] [place] [address]- 8919 Jul, [facility] [address] [id number] [place] [address]- 9862 Jul, [facility] [place] [facility] [address] [id number] [place] [address]- 2970 Jun, [facility] [place] [facility] [address] [id number] [place] [address]- 3261 Jun, [facility] [place] [facility] [address] [id number] [place] [address]- 6955 Jun, [facility] [address] [id number] [place] [address]- 1891 18 Jun, 2013 [facility] [place] [facility] [address] [id number] [place] [address]- 1040 16 Jun, 2013 [facility] [place] [facility] [address] [id number] [place] [address]- 4824 12 Jun, 2013 [facility] [place] [facility] [address] [id number] [place] [address]- 8739 11 Jun, 2013 [facility] [place] [facility] [address] [id number] [place] [address]- 7351 May, [facility] [place] [facility] [address] [id number] [place] [address]- 8182 May, [facility] [place] [facility] [address] [id number] [place] [address]- 4065 Apr, [facility] [place] [facility] [address] [id number] [place] [address]- 7639 Apr, [facility] [place] [facility] [address] [id number] [place] [address]- 4200 Apr, [facility] [place] [facility] [address] [id number] [place] [address]- 1217 Mar, [facility] [place] [facility] [address] [id number] [place] [address]- 8061 Mar, [facility] [place] [facility] [address] [id number], [place] [address]- 0242 February, [facility] [place] [facility] [address] [id number] [place] [address]- 8816 February, [facility] [place] [facility] [address] [id number] [place] [address]- 6010 February, [facility] [place] [facility] [address] [id number] [place] [address]- 6047 February, [facility] [place] [facility] [address] [id number], [place] [address]- 3253 19 Jan, 2013 [facility] [address] [id number] [place] [address]- 4559 17 Jan, 2013 [facility] [address] [id number] [place] [address]- 6461 16 Jan, 2013 [facility] [address] [facility] [id number] [place] [address]- 8875 29 Dec, 2012 [facility] [address] [id number] [place] [address]- 8601 26 Dec, 2012 [facility] [address] [id number] [place] [address]- 5661 Dec, [facility] [address] [facility] [id number] [place] [address]- 5255 08 Dec, 2012 [facility] [address] [id number] [place] [address]- 7154 20 Nov, 2012 [facility] [address] [id number] [place] [address]- 0149 Nov, [facility] [address] [id number] [place] [address]- 7891 Oct, [facility] [address] [id number] [place] [address]- 7089 Oct, [facility] [address] [id number] [place] [address]- 2942 24 Oct, 2012 [facility] [address] [id number] [place] [address]- 2587 18 Oct, 2012 [facility] [place] [facility] [address] [id number] [place] [address]- 1810 Aug, [facility] [place] [facility] [address] [facility] [id number] [place] [address]- 1099 Aug, [facility] [address] [id number], [place] [address]- 3152 18 Jun, 2012 [facility] [place] [facility] [address] [id number] [place] [address]- 4374 May, [facility] [place] [facility] [address] [id number] [place] [address]- 3231 May, [facility] [place] [facility] [address] [id number] [place] [address]- 4786 Apr, [facility] [place] [facility] [address] [id number] [place] [address]- 6664 Apr, [facility] [place] [facility] [address] [id number] [place] [address]- 9558 Apr, [facility] [place] [facility] [address] [id number] [place] [address] Mar, [facility] [place] [facility] [address] [id number] [place] [address] Mar, [facility] [place] [facility] [address] [id number] [place] [address] Mar, [facility] [place] [facility] [address] [id number] [place] [address] Mar, [facility] [place] [facility] [address] [id number] [place] [address] Mar, [facility] [place] [facility] [address] [id number] [place] [address] February, [facility] [place] [facility] [address] [id number] [place] [address] February, [facility] [place] [facility] [address] [id number] [place] [address] February, [facility] [place] [facility] [address] [id number] [place] [address] February, [facility] [place] [facility] [address] [id number] [place] [address] February, [facility] [place] [facility] [address] [id number] [place] [address] February, [facility] [place] [facility] [address] [id number] [place] [address] February, [facility] [place] [facility] [address] [id number] [place] [address] Jan, [facility] [place] [facility] [address] [id number] [place] [address] Jan, [facility] [place] [facility] [address] [id number] [place] [address] 17 Jan, 2012 [facility] [place] [facility] [address] [id number] [place] [address] Jan, [facility] [place] [facility] [address] [id number] [place] [address] Jan, [facility] [place] [facility] [address] [id number] [place] [address] Jan, [facility] [place] [facility] [address] [id number] [place] [address] 30 Dec, 2011 [facility] [place] [facility] [address] [id number] [place] [address] 24 Dec, 2011 [facility] [place] [facility] [address] [id number] [place] [address] Dec, [facility] [place] [facility] [address] [id number] [place] [address] Dec, [facility] [place] [facility] [address] [id number] [place] [address]- [address] Dec, [facility] [place] [facility] [address] [id number] [place] [address]60 Nov, [facility] [place] [facility] [address] [id number] [place] [address] Nov, [facility] [place] [facility] [address] [id number] [place] [address]686 Nov, [facility] [place] [facility] [address] [id number] [place] [address] 14 Nov, 2011 [facility] [address] [id number] [place] [address] 10 Nov, 2011 [facility] [place] [facility] [address] [id number] [place] [address] Nov, [facility] [address] [id number] [place] [address] Oct, [facility] [place] [facility] [address] [id number] [place] [address] Oct, [facility] [address] [id number] [place] [address] Oct, [facility] [address] [id number] [place] [address] Oct, [facility] [address] [id number] [place] [address] Oct, [facility] [address] [id number] [place] [address] Sep, [facility] [address] [id number] [place] [address] Sep, [facility] [address] [id number] [place] [address] Sep, [facility] [address] [id number] [place] [address] 14 Sep, 2011 [facility] [facility] [address] [id number] [place] [address] 14 Sep, 2011 [facility] [place] [facility] [address] [id number] [place] [address] 13 Sep, 2011 [facility] [address] [id number] [place] [address]- [address] 12 Sep, 2011 [facility] [address] [id number] [place] [address] Sep, [facility] [place] [facility] [address] [id number] [place] [address]- [address] Sep, [facility] [place] [facility] [address] [id number] [place] [address]- [address] Aug, [facility] [place] [facility] [address] [id number] [place] [address]- [address] Aug, [facility] [place] [facility] [address] [id number] [place] [address]- 2526 Aug, [facility] [place] [facility] [address] [id number] [place] [address]- [address] Aug, [facility] [place] [facility] [address] [id number] [place] [address]- [address] Aug, [facility] [place] [facility] [address] [id number] [place] [address]- [address] Aug, [facility] [place] [facility] [address] [id number], [place] [address] 39[address] Aug, [facility] [place] [facility] [address] [id number], [place] [address] Aug, [facility] [place] [facility] [address] [id number], [place] [address] Aug, [facility] [facility] [address] [id number], [place] [address] Aug, [facility] [facility] [address] [id number], [place] [address] Aug, [facility] [facility] [address] [id number], [place] [address] Aug, [facility] [address] [id number], [place] [address] Jul, [facility] [address] [id number], [place] [address] Jul, [facility] [id number], [place] [address] Jul, [facility] [id number], [place] [address] Jul, [facility] [id number], [place] [address] Jul, [facility] [id number], [place] [address] Jul, [facility] [address] [id number], [place] [address] Jul, [facility] [id number] [place] [address]- [address] Jul, [facility] [id number], [place] [address]- [address] Jul, [facility] [id number] [place] [address]- [address] Jul, [facility] [id number], [place] [address] Nov, [facility] [id number] [place] [address]- [address] Aug, [facility] [id number], [place] [address] Aug, [facility] [id number], [place] [address]- 56[address] Aug, [facility] [address] [id number], [place] [address] Aug, [facility] [id number], [place] [address] Jul, IMMUNIZATIONS No Known Immunizations SOCIAL HISTORY Never Assessed REASON FOR VISIT LIANA f/u ROSALIO PLAN OF CARE Activity Details Follow Up 3 Weeks Reason:LIANA f/u VITAL SIGNS Height 65.75 in 2018-04-07 Weight 191.8 lbs 2018-04-07 Heart Rate 100 bpm 2018-04-07 Respiratory Rate 20 2018-04-07 BMI 31.19 kg/m2 2018-04-07 Blood pressure systolic 108 mmHg 2018-04-07 Blood pressure diastolic 68 mmHg 2018-04-07 MEDICATIONS Medication Instructions Dosage Frequency Start Date End Date Duration Status Allergy 4 MG Orally every 6 hrs 1 tablet as needed 6h Active Trileptal 300 MG Orally 3 times a day 1 tablet 8h 30 days Active Intuniv 1 MG Orally 2 times a day 1 tablet 12h Active Cyproheptadine HCl 4 MG Orally Twice a day 1 tablet 12h Active Seroquel 300 MG Orally Once a day at bedtime for sleep 1 tablet Active Insulin Detemir 100 unit/mL (3 mL) Subcutaneous at bedtime 75 units by Subcutaneous route 1 time per day [facility] February, Active Hydrocodone-Acetaminophen 10-325 mg 1 Tablet by Oral route every 8 hours PRN pain Jul, Active Nitrofurantoin Monohyd Macro 100 MG Orally every 12 hrs 1 capsule with food 12h Not-Taking Ativan 1 MG Orally 2 times a day as needed 1 tablet Active Trintellix 20 mg orally Once a day 1 tablet 24h Active Ventolin HFA 90 MCG/ACT Inhalation every 6 hrs 2 puffs as needed 6h Active Topamax 100 mg Orally Twice a day 1.5 tablet 12h Active Metformin HCl 1000 MG Orally 2 times a day 1 tablet 12h Not-Taking Levemir 100 UNIT/ML Subcutaneous at bedtime 70 units Active Abilify 30 MG Orally Once a day 1 tablet 24h Active NovoLog Mix 70/30 (70-30) 100 UNIT/ML Subcutaneous 3 times a day 27 units 8h Active Levothyroxine Sodium 75 MCG Orally Once a day 1 tablet on an empty stomach in the morning 24h Active RESULTS No Results PROCEDURES Procedure Date Ordered Result Body Site [facility] VISIT ESTABLISHED PATIENT April 07, 2018 INSTRUCTIONS MEDICATIONS ADMINISTERED No Known Medications MEDICAL (GENERAL) HISTORY Type Description Date Medical History diabetes Medical History thyroid Surgical History appendix Surgical History gallbladder Surgical History eyes Surgical History hip Surgical History MRI on back and pelvis 06/08 Hospitalization History surgeries Hospitalization History [facility] Suicide attempt by hanging 06/14/2016 Hospitalization History [facility] 01/30/2018-02/10/2008 Hospitalization History [facility] 05/04/18-05/09/18
--- OUTSIDE RECORDS SUMMARY | 2018-08-15 20:22 | XMS REPORT ---
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 47941531 Problem Schizoaffective disorder, depressive type F25.1 Active 42863934 Problem Borderline personality disorder F60.3 Active 54286471 Problem Attention deficit hyperactivity disorder (ADHD), inattentive type, 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 28082598 Problem Schizoaffective disorder, unspecified F25.9 Active 52526105 Problem High risk medication use Z79.899 Active 677018001 Problem Posttraumatic stress disorder F43.10 Active 19644317 Problem Obsessive-compulsive disorders 300.3 Active 979689155 Problem Generalized anxiety disorder 300.02 Active 99777406 Problem Attention deficit disorder 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 314.00 Active 69951209 Problem Bipolar disorder, unspecified 296.80 Active 43766655 Problem Posttraumatic stress disorder 309.81 Active 18929001 Problem Paranoid schizophrenia, unspecified condition 295.30 Active 59975387 ALLERGIES Substance Reaction Event Type Date Status [...] and vomiting Non Drug Allergy February, Active ENCOUNTERS Encounter Location Date Diagnosis [facility] [address] [facility] [id number] [address] May, [facility] [address] [facility] [id number], [place] [address] May, Paranoid schizophrenia F20.0 [facility] [address] [id number] [address] [address] May, Paranoid schizophrenia F20.0 ; Posttraumatic stress disorder F43.10 ; Attention deficit hyperactivity disorder (ADHD), inattentive type, 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 and Borderline personality disorder F60.3 [facility] [address] [facility] [id number], [place] [address] Apr, [facility] [address] [id number], [place] [address] Apr, Paranoid schizophrenia F20.0 ; Posttraumatic stress disorder F43.10 ; Attention deficit hyperactivity disorder (ADHD), inattentive type, 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 and Borderline personality disorder F60.3 [facility] [address] [id number] [address] Apr, [facility] [address] [id number], [place] [address] Apr, Schizoaffective disorder, depressive type F25.1 and Borderline personality disorder F60.3 [facility] [address] [id number], [place] [address] Apr, Paranoid schizophrenia F20.0 ; Posttraumatic stress disorder F43.10 ; Attention deficit hyperactivity disorder (ADHD), inattentive type, 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 and Borderline personality disorder F60.3 [facility] [address] [facility] [id number], [place] [address] Apr, [facility] [address] [facility] [id number], [place] [address] Apr, Paranoid schizophrenia F20.0 ; Posttraumatic stress disorder F43.10 ; Attention deficit hyperactivity disorder (ADHD), inattentive type, 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 and Borderline personality disorder F60.3 [facility] [address], [place] [address] Apr, [facility] [address], [place] [address] Mar, Paranoid schizophrenia F20.0 [facility] [address]65[address], [place] [address] Mar, [facility] [address] [id number], [place] [address] Mar, Paranoid schizophrenia F20.0 ; Posttraumatic stress disorder F43.10 ; Attention deficit hyperactivity disorder (ADHD), inattentive type, 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 and Borderline personality disorder F60.3 [facility] [address], [place] [address] February, Paranoid schizophrenia F20.0 [facility] [address], [place] [address] February, Paranoid schizophrenia F20.0 ; Posttraumatic stress disorder F43.10 ; Attention deficit hyperactivity disorder (ADHD), inattentive type, 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 and Borderline personality disorder F60.3 [facility] [address], [place] [address] February, Paranoid schizophrenia F20.0 ; Posttraumatic stress disorder F43.10 ; Attention deficit hyperactivity disorder (ADHD), inattentive type, 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 and Borderline personality disorder F60.3 [facility] [address]65[address], [place] [address] February, [facility] [address], [place] [address] February, Paranoid schizophrenia F20.0 [facility] [address], [place] [address] February, Paranoid schizophrenia F20.0 [facility] [address], [place] [address] February, Paranoid schizophrenia F20.0 ; Posttraumatic stress disorder F43.10 ; Attention deficit hyperactivity disorder (ADHD), inattentive type, 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 and Borderline personality disorder F60.3 [facility] [address]65[address], [place] [address] Jan, Paranoid schizophrenia F20.0 ; Posttraumatic stress disorder F43.10 ; Attention deficit hyperactivity disorder (ADHD), inattentive type, 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 and Borderline personality disorder F60.3 [facility] [address], [place] [address] Jan, Paranoid schizophrenia F20.0 [facility] [address], [place] [address] 78[address] Jan, Paranoid schizophrenia F20.0 [facility] [address], [place] [address] Jan, Paranoid schizophrenia F20.0 ; Posttraumatic stress disorder F43.10 ; Attention deficit hyperactivity disorder (ADHD), inattentive type, 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 and Borderline personality disorder F60.3 [facility] [address]65[address], [place] [address] Dec, [facility] [address] [id number], [place] [address] Nov, Paranoid schizophrenia F20.0 ; Posttraumatic stress disorder F43.10 ; Attention deficit hyperactivity disorder (ADHD), inattentive type, 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 and Borderline personality disorder F60.3 [facility] [address]65[address], [place] [address] Nov, [facility] [address] [id number], [place] [address] Oct, Paranoid schizophrenia F20.0 [facility] [address] [id number], [place] [address] Oct, Paranoid schizophrenia F20.0 ; Posttraumatic stress disorder F43.10 ; Attention deficit hyperactivity disorder (ADHD), inattentive type, 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 ; Borderline personality disorder F60.3 and 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 [facility] [address], [place] [address] Oct, [facility] [address], [place] [address]- [address] Oct, [facility] [address], [place] [address]- [address] Sep, [facility] [address], [place] [address]- 6[address] Sep, Paranoid schizophrenia F20.0 ; Posttraumatic stress disorder F43.10 ; Attention deficit hyperactivity disorder (ADHD), inattentive type, 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 and Borderline personality disorder F60.3 [facility] [address], [place] [address] Sep, Paranoid schizophrenia F20.0 [facility] [address], [place] [address] 9[address] Aug, Paranoid schizophrenia F20.0 ; Posttraumatic stress disorder F43.10 ; Attention deficit hyperactivity disorder (ADHD), inattentive type, 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 and Borderline personality disorder F60.3 [facility] [address], [place] [address] Aug, Paranoid schizophrenia F20.0 ; Posttraumatic stress disorder F43.10 ; Attention deficit hyperactivity disorder (ADHD), inattentive type, 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 and Borderline personality disorder F60.3 [facility] [address], [place] [address] Aug, [facility] [address], [place] [address] 9158 Jul, Paranoid schizophrenia F20.0 ; Posttraumatic stress disorder F43.10 ; Attention deficit hyperactivity disorder (ADHD), inattentive type, 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 and Borderline personality disorder F60.3 [facility] [address], [place] [address]- 0[address] Jul, Paranoid schizophrenia F20.0 [facility] [address], [place] [address]- 6[address] Jul, Paranoid schizophrenia F20.0 ; Posttraumatic stress disorder F43.10 ; Attention deficit hyperactivity disorder (ADHD), inattentive type, 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 and Borderline personality disorder F60.3 [facility] [address], [place] [address]- [address] Jun, Paranoid schizophrenia F20.0 ; Posttraumatic stress disorder F43.10 ; Attention deficit hyperactivity disorder (ADHD), inattentive type, 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 and Borderline personality disorder F60.3 [facility] [address], [place] [address] May, Other mcfp (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 Z79.899 [facility] [address], [place] [address] May, [facility] [address], [place] [address]- 3[address] May, [facility] [address], [place] [address] 5159 May, Attention deficit hyperactivity disorder (ADHD), inattentive type, 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 [facility] [address], [place] [address]- 3218 May, [facility] [address], [place] [address]- 6[address] May, Attention deficit hyperactivity disorder (ADHD), inattentive type, 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 [facility] [address], [place] [address]- 2220 May, Paranoid schizophrenia F20.0 ; Posttraumatic stress disorder F43.10 ; Attention deficit hyperactivity disorder (ADHD), inattentive type, 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 and Other mcfp (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 Z79.899 [facility] [address] [id number], [place] [address]- [address]20 Apr, Paranoid schizophrenia F20.0 [facility] [address], [place] [address]- 5[address] Apr, Paranoid schizophrenia F20.0 ; Posttraumatic stress disorder F43.10 and Attention deficit hyperactivity disorder (ADHD), inattentive type, 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 [facility] [address], [place] [address]- 5[address] February, [facility] [address], [place] [address]- 5949 February, Paranoid schizophrenia F20.0 ; Posttraumatic stress disorder F43.10 and Attention deficit hyperactivity disorder (ADHD), inattentive type, 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 [facility] [address], [place] [address]- 2[address] February, Paranoid schizophrenia F20.0 ; Posttraumatic stress disorder F43.10 and Attention deficit hyperactivity disorder (ADHD), inattentive type, 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 [facility] [address], [place] [address]- 9610 Jan, Paranoid schizophrenia F20.0 ; Posttraumatic stress disorder F43.10 and Attention deficit hyperactivity disorder (ADHD), inattentive type, 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 [facility] [address] [address] Dec, Dental examination Z01.20 [facility] [address] [id number] [address] Nov, Dental examination Z01.20 [facility] [address] [id number] [address] Nov, Dental examination Z01.20 [facility] [address] [address] Nov, Dental caries K02.9 [facility] [address], [place] [address]- 69[address] Nov, High risk medication use Z79.899 [facility] [address], [place] [address]- 8539 Nov, Paranoid schizophrenia F20.0 ; Posttraumatic stress disorder F43.10 ; Attention deficit hyperactivity disorder (ADHD), inattentive type, 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 and Borderline personality disorder in adult F60.3 [facility] [address] [address] Oct, Dental caries K02.9 [facility] [id number] [place] [address]179 Sep, Paranoid schizophrenia F20.0 ; Posttraumatic stress disorder F43.10 and Attention deficit hyperactivity disorder (ADHD), inattentive type, 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 [facility] [address], [place] [address]- 2815 Aug, Paranoid schizophrenia F20.0 ; Posttraumatic stress disorder F43.10 and Attention deficit hyperactivity disorder (ADHD), inattentive type, 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 [facility] [address] [id number], [place] [address] Aug, Strep throat J02.0 and Cough R05 [facility] [id number] [place] [address]- 37[address] Aug, [facility] [address], [place] [address]- 7574 Jul, Paranoid schizophrenia F20.0 ; Posttraumatic stress disorder F43.10 and Attention deficit hyperactivity disorder (ADHD), inattentive type, 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 [facility] [address] [facility] [id number], [place] [address]- 6181 Jul, [facility] [id number] [place] [address]- 7931 Jun, Paranoid schizophrenia F20.0 ; Posttraumatic stress disorder F43.10 and Attention deficit hyperactivity disorder (ADHD), inattentive type, 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 [facility] [address] [address] Jun, Dental examination Z01.20 [facility] [address] [facility] [id number], [place] [address]71 Jun, [facility] [address] [id number], [place] [address]- 2906 May, Paranoid schizophrenia F20.0 [facility] [id number] [place] [address]- 2301 May, Paranoid schizophrenia F20.0 ; Posttraumatic stress disorder F43.10 and Attention deficit hyperactivity disorder (ADHD), inattentive type, 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 [facility] [id number] [place] [address]- 7844 May, [facility] [id number] [place] [address]751- 0780 May, Paranoid schizophrenia F20.0 [facility] [address] [place] [address]- 7403 May, [facility] [id number], [place] [address]- 2907 May, Paranoid schizophrenia F20.0 [facility] [id number], [place] [address]- 3443 May, Schizoaffective disorder, unspecified F25.9 [facility] [address], [place] [address]- 4823 May, Schizoaffective disorder, unspecified F25.9 [facility] [address] [facility] [id number], [place] [address]- 5756 May, [facility] [id number] [place] [address] 24444- 8408 May, Paranoid schizophrenia F20.0 [facility] [address] [facility] [id number], [place] [address]- 4273 May, Paranoid schizophrenia F20.0 ; Posttraumatic stress disorder F43.10 and Attention deficit hyperactivity disorder (ADHD), inattentive type, 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 [facility] [address] [id number] [place] [address]- 4610 Mar, [facility] [address] [facility] [id number] [place] [address]- 2779 Mar, Paranoid schizophrenia F20.0 ; Posttraumatic stress disorder F43.10 and Attention deficit hyperactivity disorder (ADHD), inattentive type, 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 [facility] [address] [facility] [id number] [place] [address]- 5530 Mar, Paranoid schizophrenia F20.0 [facility] [address] [facility] [id number] [place] [address]- 2191 Mar, Paranoid schizophrenia F20.0 ; Attention deficit hyperactivity disorder (ADHD), inattentive type, 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 and Posttraumatic stress disorder F43.10 [facility] [address] [facility] [id number] [place] [address]- 4735 Mar, [facility] [address] [facility] [id number] [place] [address]- 9068 Mar, Paranoid schizophrenia F20.0 ; Posttraumatic stress disorder F43.10 and Attention deficit hyperactivity disorder (ADHD), inattentive type, 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 [facility] [address] [facility] [id number] [place] [address]- 5424 February, [facility] [address] [facility] [id number], [place] [address]- 0246 February, [facility] [address] [facility] [id number] [place] [address]- 0451 February, [facility] [address] [facility] [id number] [place] [address]- 6512 February, [facility] [address] [facility] [id number] [place] [address]- 9116 Jan, Paranoid schizophrenia F20.0 [facility] [address] [id number] [address] Jan, Dental examination Z01.20 [facility] [address] [id number] [address] Jan, Dental caries K02.9 [facility] [address] [id number] [address] Jan, Dental examination Z01.20 [facility] [address] [id number][place] [address] Dec, Encounter for dental examination Z01.20 [facility] [address] [facility] [id number] [place] [address] 83716- 9367 Dec, Paranoid schizophrenia F20.0 [facility] [address] [id number][place] [address] Dec, Dental examination Z01.20 [facility] [address], [place] [address]- 3906 Dec, [facility] [id number] [place] [address] 84392- 9072 Dec, Paranoid schizophrenia F20.0 ; Posttraumatic stress disorder F43.10 and Attention deficit hyperactivity disorder (ADHD), inattentive type, 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 [facility] [address], [place] [address]- 1306 Nov, Schizoaffective disorder, unspecified F25.9 [facility] [id number], [place] [address]- 5862 Oct, Paranoid schizophrenia F20.0 [facility] [id number], [place] [address]- 4298 Oct, [facility] [id number] [place] [address] 07446- 8093 Sep, Paranoid schizophrenia F20.0 ; Posttraumatic stress disorder F43.10 and Attention deficit hyperactivity disorder (ADHD), inattentive type, 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 [facility] [address] [id number], [place] [address]- 1198 Sep, [facility] [address], [place] [address]- 6570 Sep, Paranoid schizophrenia F20.0 ; Posttraumatic stress disorder F43.10 and Attention deficit hyperactivity disorder (ADHD), inattentive type, 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 [facility] [address], [place] [address]- 3446 Aug, Paranoid schizophrenia F20.0 [facility] [address], [place] [address]- 5401 Aug, [facility] [id number] [place] [address] 25521- 3427 Aug, Posttraumatic stress disorder F43.10 ; Paranoid schizophrenia F20.0 and Attention deficit hyperactivity disorder (ADHD), inattentive type, 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 [facility] [id number], [place] [address]- 9089 Jul, Bipolar disorder, unspecified F31.9 [facility] [address], [place] [address]- 3002 Jul, [facility] [address] [place] [address] 19636- 6242 Jun, [facility] [address], [place] [address]- 1525 Jun, Schizoaffective disorder, chronic 295.72 ; Posttraumatic stress disorder 309.81 and Attention deficit disorder 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 314.00 [facility] [address], [place] [address]- 0404 May, [facility] [id number] [address]- 4766 May, [facility] [address] [id number], [place] [address]- 0335 May, Schizoaffective disorder, chronic 295.72 ; Posttraumatic stress disorder 309.81 ; Attention deficit disorder 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 314.00 and Bipolar disorder, unspecified 296.80 [facility] [address], [place] [address]- 9866 Apr, Schizoaffective disorder, chronic 295.72 [facility] [address], [place] [address]- 6643 Apr, [facility] [id number] [place] [address] 45879- 1231 Apr, Schizoaffective disorder, chronic 295.72 ; Posttraumatic stress disorder 309.81 and Attention deficit disorder 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 314.00 [facility] [id number] [place] [address] 11430- 3972 Mar, Disorganized schizophrenia, 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 [facility] [address], [place] [address]- 0266 Mar, [facility] [id number] [place] [address] 43526- 1473 Mar, [facility] [address], [place] [address]- 7265 Mar, [facility] [address] [id number], [place] [address]- 8985 Mar, [facility] [address], [place] [address]- 9335 February, Schizoaffective disorder, chronic 295.72 [facility] [address], [place] [address]- 1296 February, [facility] [id number], [place] [address] February, Attention deficit disorder 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 314.00 ; Posttraumatic stress disorder 309.81 and Schizoaffective disorder, chronic 295.72 [facility] [id number], [place] [address] Jan, [facility] [place] [facility] [address] [id number] [place] [address] 14 Jan, 2015 [facility] [place] [facility] [address] [id number] [place] [address] Jan, [facility] [place] [facility] [address] [id number] [place] [address] 25 Dec, 2014 [facility] [place] [facility] [address] [address] [id number] [place] [address] Dec, [facility] [place] [facility] [address] [id number] [place] [address] 9421 Dec, [facility] [place] [facility] [address] [id number] [place] [address] 3890 Dec, [facility] [place] [facility] [address] [facility] [id number] [place] [address] 1898 Dec, [facility] [place] [facility] [address] [id number] [place] [address] 0868 Dec, [facility] [place] [facility] [address] [id number] [place] [address] 3834 Dec, [facility] [place] [facility] [address] [id number] [place] [address] 4476 Dec, [facility] [place] [facility] [address] [id number] [place] [address] 6198 Nov, [facility] [place] [facility] [address] [id number] [place] [address] 8115 Nov, [facility] [place] [facility] [address] [id number] [place] [address] 9250 Nov, [facility] [place] [facility] [address] [id number] [place] [address]- 6732 Nov, [facility] [place] [facility] [address] [id number] [place] [address]- 1108 Nov, [facility] [place] [facility] [address] [id number] [place] [address]- 5125 Nov, [facility] [place] [facility] [address] [id number] [place] [address]- 2708 Nov, [facility] [place] [facility] [address] [id number] [place] [address] Nov, [facility] [place] [facility] [address] [id number] [place] [address]- 9316 Nov, [facility] [place] [facility] [address] [id number] [place] [address]- 7721 Nov, [facility] [place] [facility] [address] [id number] [place] [address] 1908 Oct, [facility] [place] [facility] [address] [id number] [place] [address]- 2379 Oct, [facility] [place] [facility] [address] [id number] [place] [address]- 7987 Oct, [facility] [place] [facility] [address] [id number] [place] [address]- 0574 Oct, [facility] [place] [facility] [address] [id number] [place] [address]- 0651 Oct, [facility] [place] [facility] [address] [facility] [id number] [place] [address]- 6905 Oct, [facility] [place] [facility] [address] [id number] [place] [address]- 4547 Oct, [facility] [place] [facility] [address] [id number] [address] Sep, [facility] [place] [facility] [address] [id number] [place] [address]- 2650 Sep, [facility] [place] [facility] [address] [id number] [place] [address]- 5574 Sep, [facility] [place] [facility] [address] [id number] [place] [address]- 8894 Sep, [facility] [place] [facility] [address] [id number] [place] [address]- 1245 Aug, [facility] [place] [facility] [address] [id number] [place] [address]- 3321 Aug, [facility] [place] [facility] [address] [id number] [place] [address]- 4278 Aug, [facility] [place] [facility] [address] [id number] [place] [address]- 6364 Aug, [facility] [place] [facility] [address] [id number] [place] [address]- 1304 Aug, [facility] [place] [facility] [address] [id number] [place] [address]- 1598 Aug, [facility] [place] [facility] [address] [id number] [place] [address]- 3039 Jul, [facility] [place] [facility] [address] [id number] [place] [address]- 6004 Jul, [facility] [place] [facility] [address] [id number] [place] [address]- 3421 Jul, [facility] [place] [facility] [address] [id number] [place] [address]- 0292 Jul, [facility] [place] [facility] [address] [id number] [place] [address]- 1810 Jul, [facility] [place] [facility] [address] [id number] [place] [address]- 5591 Jul, [facility] [place] [facility] [address] [id number] [place] [address]- 7323 27 Jun, 2014 [facility] [place] [facility] [address] [id number] [place] [address]- 4781 27 Jun, 2014 [facility] [place] [facility] [address] [id number] [place] [address]- 4472 26 Jun, 2014 [facility] [place] [facility] [address] [id number] [place] [address]- 2847 Jun, 2013 [facility] [place] [facility] [address] [id number] [place] [address]- 5480 Jun, 2013 [facility] [place] [facility] [address] [id number] [place] [address]- 9904 Jun, [facility] [place] [facility] [address] [id number] [place] [address] 2546 Jun, 2013 [facility] [place] [facility] [address] [id number] [place] [address] 2548 Jun, 2013 [facility] [place] [facility] [address] [id number] [place] [address]- 1431 Jun, 2013 [facility] [place] [facility] [address] [id number] [place] [address]- 5600 Jun, 2013 [facility] [place] [facility] [address] [id number] [place] [address]- 1969 Jun, [facility] [place] [facility] [address] [id number] [place] [address]- 3365 May, [facility] [place] [facility] [address] [id number] [place] [address]- 8715 May, [facility] [place] [facility] [address] [id number] [place] [address]- 6775 May, [facility] [place] [facility] [address] [id number] [place] [address]- 8583 May, [facility] [place] [facility] [address] [id number] [place] [address]- 7494 May, [facility] [place] [facility] [address] [id number] [place] [address]- 1914 May, [facility] [place] [facility] [address] [id number] [place] [address]- 9973 May, [facility] [place] [facility] [address] [id number] [place] [address]- 2471 May, [facility] [place] [facility] [address] [id number] [place] [address]- 7405 May, [facility] [place] [facility] [address] [id number] [place] [address]- 1619 May, [facility] [place] [facility] [address] [id number] [place] [address]- 1492 Apr, [facility] [place] [facility] [address] [id number] [place] [address]- 1488 Apr, [facility] [place] [facility] [address] [id number] [place] [address]- 7235 Apr, [facility] [place] [facility] [address] [id number] [place] [address]- 9554 Apr, [facility] [place] [facility] [address] [id number] [place] [address]- 3700 Apr, [facility] [place] [facility] [address] [id number] [place] [address]- 2428 Apr, [facility] [place] [facility] [address] [id number] [place] [address]- 5886 Apr, [facility] [place] [facility] [address] [id number] [place] [address]- 2408 Apr, [facility] [place] [facility] [address] [id number] [place] [address]- 5305 Apr, [facility] [place] [facility] [address] [id number] [place] [address]- 5227 Apr, [facility] [place] [facility] [address] [id number] [place] [address]- 7715 Mar, [facility] [place] [facility] [address] [id number] [place] [address]- 3205 Mar, [facility] [place] [facility] [address] [id number] [place] [address]- 3139 Mar, [facility] [place] [facility] [address] [id number] [place] [address]- 2414 Mar, [facility] [place] [facility] [address] [id number] [place] [address]- 1916 Mar, [facility] [place] [facility] [address] [id number] [place] [address]- 2421 Mar, [facility] [place] [facility] [address] [id number] [place] [address]- 8930 Mar, [facility] [place] [facility] [address] [id number] [place] [address]- 0185 Mar, [facility] [place] [facility] [address] [id number] [place] [address]- 2148 Mar, [facility] [place] [facility] [address] [id number] [place] [address]- 0164 Mar, [facility] [place] [facility] [address] [id number] [place] [address]- 6951 Mar, [facility] [place] [facility] [address] [id number] [place] [address]- 5763 Mar, [facility] [place] [facility] [address] [id number] [place] [address]- 4455 Mar, [facility] [place] [facility] [address] [id number] [place] [address]- 7170 Mar, [facility] [place] [facility] [address] [id number], [place] [address]- 2352 Mar, [facility] [place] [facility] [address] [id number], [place] [address]- 6879 Mar, [facility] [place] [facility] [address] [id number] [place] [address]- 0433 Mar, [facility] [place] [facility] [address] [id number] [place] [address]- 3519 Mar, [facility] [place] [facility] [address] [id number], [place] [address]- 7474 04 Mar, 2014 [facility] [place] [facility] [address] [id number], [place] [address]- 9057 Mar, [facility] [address] [id number] [place] [address]- 0402 February, [facility] [place] [facility] [address] [id number] [place] [address]- 9163 February, [facility] [place] [facility] [address] [id number] [place] [address]- 8553 February, [facility] [place] [facility] [address] [id number] [place] [address]- 5772 February, [facility] [place] [facility] [address] [id number] [place] [address]- 1512 February, [facility] [place] [facility] [address] [id number] [place] [address]- 0673 February, [facility] [address] [id number] [place] [address]- 6545 February, [facility] [place] [facility] [address] [id number] [place] [address]- 5854 February, [facility] [place] [facility] [address] [id number] [place] [address]- 5726 February, [facility] [place] [facility] [address] [id number] [place] [address]- 2460 February, [facility] [place] [facility] [address] [id number] [place] [address]- 5052 February, [facility] [place] [facility] [address] [id number] [place] [address]- 9839 February, [facility] [place] [facility] [address] [id number] [place] [address]- 5968 February, [facility] [place] [facility] [address] [id number] [place] [address]- 1243 February, [facility] [place] [facility] [address] [id number] [place] [address]- 2939 February, [facility] [place] [facility] [address] [id number] [place] [address]- 2235 February, [facility] [place] [facility] [address] [id number] [place] [address]- 1285 February, [facility] [place] [facility] [address] [id number] [place] [address] February, [facility] [place] [facility] [address] [id number] [place] [address]- 4624 February, [facility] [place] [facility] [address] [id number] [place] [address]- 5327 February, [facility] [place] [facility] [address] [id number] [place] [address]- 7248 February, [facility] [place] [facility] [address] [id number] [place] [address]- 1166 Jan, [facility] [place] [facility] [address] [id number] [place] [address]- 2230 Jan, [facility] [place] [facility] [address] [id number] [place] [address]- 6941 Jan, [facility] [place] [facility] [address] [id number] [place] [address]- 2365 Jan, [facility] [place] [facility] [address] [id number] [place] [address]- 3596 Jan, [facility] [place] [facility] [address] [id number] [place] [address]- 2834 Jan, [facility] [place] [facility] [address] [id number] [place] [address]- 4898 Jan, [facility] [place] [facility] [address] [id number] [place] [address]- 8653 Jan, [facility] [place] [facility] [address] [id number] [place] [address]- 8463 Dec, [facility] [place] [facility] [address] [id number] [place] [address]- 4144 20 Dec, 2013 [facility] [place] [facility] [address] [id number] [place] [address]- 3177 20 Dec, 2013 [facility] [place] [facility] [address] [id number] [place] [address]- 0273 19 Dec, 2013 [facility] [place] [facility] [address] [id number] [place] [address]- 8822 19 Dec, 2013 [facility] [place] [facility] [address] [id number] [place] [address]- 3755 15 Dec, 2013 [facility] [place] [facility] [address] [id number] [place] [address]- 1673 15 Dec, 2013 [facility] [place] [facility] [address] [id number] [place] [address]- 9330 11 Dec, 2013 [facility] [place] [facility] [address] [id number] [place] [address]- 3402 10 Dec, 2013 [facility] [place] [facility] [address] [id number] [place] [address]- 9902 10 Dec, 2013 [facility] [place] [facility] [address] [id number] [place] [address]- 1463 18 Nov, 2013 [facility] [place] [facility] [address] [id number] [place] [address]- 1387 17 Nov, 2013 [facility] [place] [facility] [address] [id number] [place] [address]- 7923 Nov, [facility] [place] [facility] [address] [id number] [place] [address]- 9158 Nov, [facility] [place] [facility] [address] [id number] [place] [address]- 2005 Nov, [facility] [place] [facility] [address] [id number] [place] [address]- 1731 Oct, [facility] [place] [facility] [address] [id number] [place] [address]- 1035 Oct, [facility] [place] [facility] [address] [id number] [place] [address]- 4479 Oct, [facility] [address] [id number] [place] [address]- 6263 Sep, [facility] [place] [facility] [address] [id number] [place] [address]- 4706 Sep, [facility] [address] [id number] [place] [address]- 7112 Sep, [facility] [place] [facility] [address] [id number] [place] [address]- 4123 Sep, [facility] [address] [id number] [place] [address]- 6147 Aug, [facility] [address] [id number] [place] [address]- 5190 Aug, [facility] [address] [id number] [place] [address]- 4288 Jul, [facility] [address] [id number] [place] [address]- 7784 Jul, [facility] [address] [id number] [place] [address]- 8244 Jul, [facility] [address] [id number] [place] [address]- 3642 Jul, [facility] [place] [facility] [address] [id number] [place] [address]- 2307 Jul, [facility] [address] [id number] [place] [address]- 0500 Jun, [facility] [place] [facility] [address] [id number] [place] [address]- 5506 25 Jun, 2013 [facility] [place] [facility] [address] [id number] [place] [address]- 8388 19 Jun, 2013 [facility] [place] [facility] [address] [id number] [place] [address]- 7035 18 Jun, 2013 [facility] [address] [id number] [place] [address]- 6349 16 Jun, 2013 [facility] [place] [facility] [address] [id number] [place] [address]- 4468 12 Jun, 2013 [facility] [place] [facility] [address] [id number] [place]286 11 Jun, 2013 [facility] [place] [facility] [address] [id number] [place] [address]- 0530 30 May, 2013 [facility] [place] [facility] [address] [id number] [place] [address]- 2611 May, [facility] [place] [facility] [address] [id number] [place] [address]- 8342 Apr, [facility] [place] [facility] [address] [id number] [place] [address]- 1965 Apr, [facility] [place] [facility] [address] [id number] [place] [address]- 4508 Apr, [facility] [place] [facility] [address] [id number] [place] [address]- 0237 Mar, [facility] [place] [facility] [address] [id number], [place] [address]- 8192 Mar, [facility] [place] [facility] [address] [id number] [place] [address]- 8977 February, [facility] [place] [facility] [address] [id number], [place] [address]- 6383 February, [facility] [place] [facility] [address] [id number] [place] [address]- 9186 February, [facility] [place] [facility] [address] [id number] [place] [address]- 0426 February, [facility] [place] [facility] [address] [id number] [place] [address]- 7474 Jan, [facility] [place] [facility] [address] [id number], [place] [address]- 5340 17 Jan, 2013 [facility] [address] [id number] [place] [address]- 6882 16 Jan, 2013 [facility] [place] [facility] [address] [id number] [place] [address]- 6545 29 Dec, 2012 [facility] [address] [id number] [place] [address]- 5646 Dec, [facility] [place] [facility] [address] [id number] [place] [address]- 3322 Dec, [facility] [address] [id number] [place] [address]- 2196 Dec, [facility] [address] [id number] [place] [address]- 0256 Nov, [facility] [address] [id number] [place] [address]- 8999 Nov, [facility] [address] [id number] [place] [address]- 3490 Oct, [facility] [address] [id number] [place] [address]- 8943 Oct, [facility] [address] [facility] [id number] [place] [address]- 8798 Oct, [facility] [address] [id number] [place] [address]- 8387 Oct, [facility] [place] [facility] [address] [id number] [place] [address]- 0648 Aug, [facility] [place] [facility] [address] [id number] [place] [address]- 9040 Aug, [facility] [place] [facility] [address] [facility] [id number] [place] [address]10 Jun, [facility] [address] [facility] [id number], [place] [address]- 2918 May, [facility] [place] [facility] [address] [id number] [place] [address]- 2819 May, [facility] [place] [facility] [address] [id number] [place] [address]- 5702 Apr, [facility] [place] [facility] [address] [id number] [place] [address] 2546 Apr, [facility] [place] [facility] [address] [id number] [place] [address]- 1849 Apr, [facility] [place] [facility] [address] [id number] [place] [address]- 7382 Mar, [facility] [place] [facility] [address] [id number] [place] [address]- 6194 Mar, [facility] [place] [facility] [address] [id number] [place] [address] Mar, [facility] [place] [facility] [address] [id number] [place] [address] Mar, [facility] [place] [facility] [address] [id number] [place] [address] Mar, [facility] [place] [facility] [address] [id number] [place] [address] February, [facility] [place] [facility] [address] [id number] [place] [address] February, [facility] [place] [facility] [address] [id number] [place] [address] February, [facility] [place] [facility] [address] [id number] [place] [address] February, [facility] [place] [facility] [address] [id number] [place] [address] February, [facility] [place] [facility] [address] [id number] [place] [address] February, [facility] [place] [facility] [address] [id number] [place] [address] February, [facility] [place] [facility] [address] [id number] [place] [address] 25 Jan, 2012 [facility] [place] [facility] [address] [id number] [place] [address] 18 Jan, 2012 [facility] [place] [facility] [address] [id number] [place] [address] 17 Jan, 2012 [facility] [place] [facility] [address] [id number] [place] [address] 13 Jan, 2012 [facility] [place] [facility] [address] [id number] [place] [address] 47[address] 10 Jan, 2012 [facility] [place] [facility] [address] [id number] [place] [address] 04 Jan, 2012 [facility] [place] [facility] [address] [id number] [place] [address]- 4658 30 Dec, 2011 [facility] [place] [facility] [address] [id number] [place] [address] 24 Dec, 2011 [facility] [place] [facility] [address] [id number] [place] [address] 20 Dec, 2011 [facility] [place] [facility] [address] [id number] [place] [address] Dec, [facility] [place] [facility] [address] [id number] [place] [address] 06 Dec, 2011 [facility] [place] [facility] [address] [id number] [place] [address] 28 Nov, 2011 [facility] [place] [facility] [address] [id number] [place] [address]- [address] 27 Nov, 2011 [facility] [place] [facility] [address] [id number] [place] [address]- 8843 25 Nov, 2011 [facility] [place] [facility] [address] [id number] [place] [address] 14 Nov, 2011 [facility] [place] [facility] [address] [id number] [place] [address]276 10 Nov, 2011 [facility] [address] [id number] [place] [address] Nov, [facility] [place] [facility] [address] [id number] [place] [address] 65[address] Oct, [facility] [address] [id number] [place] [address]261 Oct, [facility] [place] [facility] [address] [id number] [place] [address] Oct, [facility] [place] [facility] [address] [id number] [place] [address] 89[address] Oct, [facility] [address] [id number] [place] [address] Oct, [facility] [address] [id number] [place] [address]35 Sep, [facility] [address] [id number] [place] [address] Sep, [facility] [address] [id number] [place] [address] Sep, [facility] [address] [id number] [place] [address] 14 Sep, 2011 [facility] [place] [facility] [address] [id number] [place] [address]- 110[address] 14 Sep, 2011 [facility] [place] [facility] [address] [id number] [place] [address] 2544 13 Sep, 2011 [facility] [place] [facility] [address] [id number] [place] [address] 2546 12 Sep, 2011 [facility] [place] [facility] [address] [id number] [place] [address]46 09 Sep, 2011 [facility] [place] [facility] [address] [id number] [place] [address] Sep, [facility] [place] [facility] [address] [id number] [place] [address] Aug, [facility] [place] [facility] [address] [id number] [place] [address] Aug, [facility] [place] [facility] [address] [id number] [place] [address] 110[address] Aug, [facility] [place] [facility] [address] [id number] [place] [address]- 2292 Aug, [facility] [place] [facility] [address] [id number] [place] [address] 4088 Aug, [facility] [place] [facility] [address] [id number] [place] [address] 7994 Aug, [facility] [place] [facility] [address] [id number] [place] [address]- 6085 Aug, [facility] [place] [facility] [address] [id number], [place] [address] Aug, [facility] [place] [facility] [address] [id number], [place] [address] 9[address] Aug, [facility] [place] [facility] [address] [id number], [place] [address] Aug, [facility] [place] [facility] [address] [id number], [place] [address] Aug, [facility] [place] [facility] [address] [id number], [place] [address]- 97[address] Aug, [facility] [place] [facility] [address] [id number], [place] [address] Jul, [facility] [place] [facility] [address] [id number], [place] [address]68 Jul, [facility] [place] [facility] [address] [id number], [place] [address] Jul, [facility] [place] [facility] [id number], [place] [address] Jul, [facility] [id number], [place] [address] Jul, [facility] [id number], [place] [address] Jul, [facility] [id number], [place] [address] Jul, [facility] [id number], [place] [address] Jul, [facility] [id number] [place] [address] Jul, [facility] [id number], [place] [address] Jul, [facility] [id number] [place] [address]71 Nov, [facility] [id number], [place] [address] Aug, [facility] [id number] [id number] Aug, [facility] [id number], [place] [address] Aug, [facility] [id number], [place] [address] Aug, [facility] [id number], [place] [address] Jul, IMMUNIZATIONS No Known Immunizations SOCIAL HISTORY Never Assessed REASON FOR VISIT LIANA f/u ROSALIO PLAN OF CARE Activity Details Follow Up 3 Weeks Reason:LIANA f/u VITAL SIGNS Height 65.75 in 2018-03-16 Weight 195.5 lbs 2018-03-16 Heart Rate 90 bpm 2018-03-16 Respiratory Rate 20 2018-03-16 BMI 31.79 kg/m2 2018-03-16 Blood pressure systolic 122 mmHg 2018-03-16 Blood pressure diastolic 82 mmHg 2018-03-16 MEDICATIONS Medication Instructions Dosage Frequency Start Date End Date Duration Status Ativan 1 MG Orally 2 times a day as needed 1 tablet Active Topamax 100 mg Orally Twice a day 1.5 tablet 12h Active Seroquel 300 MG Orally Once a day at bedtime for sleep 1 tablet 30 days Active Abilify 30 MG Orally Once a day 1 tablet 24h Active Levothyroxine Sodium 75 MCG Orally Once a day 1 tablet on an empty stomach in the morning 24h Active Levemir 100 UNIT/ML Subcutaneous at bedtime 70 units Active Ventolin HFA 90 MCG/ACT Inhalation every 6 hrs 2 puffs as needed 6h Active Hydrocodone-Acetaminophen 10-325 mg 1 Tablet by Oral route every 8 hours PRN pain Jul, Active Trintellix 20 mg orally Once a day 1 tablet 24h Active Insulin Detemir 100 unit/mL (3 mL) Subcutaneous at bedtime 75 units by Subcutaneous route 1 time per day [facility] February, Active Allergy 4 MG Orally every 6 hrs 1 tablet as needed 6h Active Nitrofurantoin Monohyd Macro 100 MG Orally every 12 hrs 1 capsule with food 12h Active Trileptal 300 MG Orally Twice a day 0.5 tablet 12h Active Intuniv 1 MG Orally 2 times a day 1 tablet 12h Active NovoLog Mix 70/30 (70-30) 100 UNIT/ML Subcutaneous 3 times a day 27 units 8h Active Metformin HCl 1000 MG Orally 2 times a day 1 tablet 12h Not-Taking Cyproheptadine HCl 4 MG Orally Twice a day 1 tablet 12h Active RESULTS No Results PROCEDURES Procedure Date Ordered Result Body Site [facility] VISIT ESTABLISHED PATIENT March 16, 2018 INSTRUCTIONS MEDICATIONS ADMINISTERED No Known Medications MEDICAL (GENERAL) HISTORY Type Description Date Medical History diabetes Medical History thyroid Surgical History appendix Surgical History gallbladder Surgical History eyes Surgical History hip Surgical History MRI on back and pelvis 06/08 Hospitalization History surgeries Hospitalization History [facility] Suicide attempt by hanging 06/14/2016 Hospitalization History [facility] 01/30/2018-02/10/2008 Hospitalization History [facility]/SI 05/04/18-05/09/18
--- OUTSIDE RECORDS SUMMARY | 2018-08-15 20:23 | XMS REPORT ---
Author Author REGAN SAWYER 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 09494288 Problem Schizoaffective disorder, depressive type F25.1 Active 70925043 Problem Borderline personality disorder F60.3 Active 14093512 Problem Attention deficit hyperactivity disorder (ADHD), inattentive type, 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 66210879 Problem Schizoaffective disorder, unspecified F25.9 Active 06025790 Problem High risk medication use Z79.899 Active 660790797 Problem Posttraumatic stress disorder F43.10 Active 58828745 Problem Obsessive-compulsive disorders 300.3 Active 278430246 Problem Generalized anxiety disorder 300.02 Active 58450338 Problem Attention deficit disorder 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 314.00 Active 14381194 Problem Bipolar disorder, unspecified 296.80 Active 91685018 Problem Posttraumatic stress disorder 309.81 Active 01184624 Problem Paranoid schizophrenia, unspecified condition 295.30 Active 30131430 ALLERGIES No Information ENCOUNTERS Encounter Location Date Diagnosis [facility] [address] [facility] [id number] [address] May, [facility] [address] [address] May, Paranoid schizophrenia F20.0 [facility] [id number] [address] May, Paranoid schizophrenia F20.0 ; Posttraumatic stress disorder F43.10 ; Attention deficit hyperactivity disorder (ADHD), inattentive type, 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 and Borderline personality disorder F60.3 [facility] [id number] [address] Apr, [facility] [id number] [address] Apr, Paranoid schizophrenia F20.0 ; Posttraumatic stress disorder F43.10 ; Attention deficit hyperactivity disorder (ADHD), inattentive type, 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 and Borderline personality disorder F60.3 [facility] [id number] [address] Apr, [facility] [id number] [address] Apr, Schizoaffective disorder, depressive type F25.1 and Borderline personality disorder F60.3 [facility] [address] [address] Apr, Paranoid schizophrenia F20.0 ; Posttraumatic stress disorder F43.10 ; Attention deficit hyperactivity disorder (ADHD), inattentive type, 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 and Borderline personality disorder F60.3 [facility] [id number] [address] Apr, [facility] [id number] [address] Apr, Paranoid schizophrenia F20.0 ; Posttraumatic stress disorder F43.10 ; Attention deficit hyperactivity disorder (ADHD), inattentive type, 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 and Borderline personality disorder F60.3 [facility] [address] [facility] [id number], [place] [address] Apr, [facility] [address] [id number] [address] Mar, Paranoid schizophrenia F20.0 [facility] [id number] [address] Mar, [facility] [address], [place] [address] Mar, Paranoid schizophrenia F20.0 ; Posttraumatic stress disorder F43.10 ; Attention deficit hyperactivity disorder (ADHD), inattentive type, 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 and Borderline personality disorder F60.3 [facility] [address] [address] February, Paranoid schizophrenia F20.0 [facility] [address], [place] [address] February, Paranoid schizophrenia F20.0 ; Posttraumatic stress disorder F43.10 ; Attention deficit hyperactivity disorder (ADHD), inattentive type, 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 and Borderline personality disorder F60.3 [facility] [address], [place] [address] February, Paranoid schizophrenia F20.0 ; Posttraumatic stress disorder F43.10 ; Attention deficit hyperactivity disorder (ADHD), inattentive type, 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 and Borderline personality disorder F60.3 [facility] [address] [address] February, [place] [id number], [place] [address] 140[address] February, Paranoid schizophrenia F20.0 [facility] [address] [address] 38[address] February, Paranoid schizophrenia F20.0 [facility] [id number] [address] 5[address] February, Paranoid schizophrenia F20.0 ; Posttraumatic stress disorder F43.10 ; Attention deficit hyperactivity disorder (ADHD), inattentive type, 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 and Borderline personality disorder F60.3 [facility] [id number] [address] Jan, Paranoid schizophrenia F20.0 ; Posttraumatic stress disorder F43.10 ; Attention deficit hyperactivity disorder (ADHD), inattentive type, 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 and Borderline personality disorder F60.3 [facility] [address], [place] [address] 4[address] Jan, Paranoid schizophrenia F20.0 [facility] [address], [place] [address] 7[address] Jan, Paranoid schizophrenia F20.0 [facility] [id number] [place] [address]- 8866 Jan, Paranoid schizophrenia F20.0 ; Posttraumatic stress disorder F43.10 ; Attention deficit hyperactivity disorder (ADHD), inattentive type, 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 and Borderline personality disorder F60.3 [facility] [address] [place] [address]- 6612 Dec, [facility] [id number] [place] [address]- 0867 Nov, Paranoid schizophrenia F20.0 ; Posttraumatic stress disorder F43.10 ; Attention deficit hyperactivity disorder (ADHD), inattentive type, 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 and Borderline personality disorder F60.3 [facility] [address], [place] [address] Nov, [facility] [address], [place] [address]- 3[address] Oct, Paranoid schizophrenia F20.0 [facility] [address], [place] [address] 39[address] Oct, Paranoid schizophrenia F20.0 ; Posttraumatic stress disorder F43.10 ; Attention deficit hyperactivity disorder (ADHD), inattentive type, 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 ; Borderline personality disorder F60.3 and Other skilled nursing ( 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 Z79.899 [facility] [id number] [place] [address]267- 0132 Oct, [facility] [address], [place] [address]- 07[address] Oct, [facility] [address] [id number], [place] [address]- [address] Sep, [facility] [address], [place] [address]- 9[address] Sep, Paranoid schizophrenia F20.0 ; Posttraumatic stress disorder F43.10 ; Attention deficit hyperactivity disorder (ADHD), inattentive type, 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 and Borderline personality disorder F60.3 [facility] [address], [place] [address]- 44[address] Sep, Paranoid schizophrenia F20.0 [facility] [address], [place] [address] Aug, Paranoid schizophrenia F20.0 ; Posttraumatic stress disorder F43.10 ; Attention deficit hyperactivity disorder (ADHD), inattentive type, 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 and Borderline personality disorder F60.3 [facility] [address], [place] [address]- 0[address] Aug, Paranoid schizophrenia F20.0 ; Posttraumatic stress disorder F43.10 ; Attention deficit hyperactivity disorder (ADHD), inattentive type, 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 and Borderline personality disorder F60.3 [facility] [address], [place] [address]- 0[address] Aug, [facility] [address], [place] [address]- 3585 Jul, Paranoid schizophrenia F20.0 ; Posttraumatic stress disorder F43.10 ; Attention deficit hyperactivity disorder (ADHD), inattentive type, 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 and Borderline personality disorder F60.3 [facility] [id number], [place] [address] Jul, Paranoid schizophrenia F20.0 [facility] [address], [place] [address] 35[address] Jul, Paranoid schizophrenia F20.0 ; Posttraumatic stress disorder F43.10 ; Attention deficit hyperactivity disorder (ADHD), inattentive type, 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 and Borderline personality disorder F60.3 [facility] [id number], [place] [address]- 34[address] Jun, Paranoid schizophrenia F20.0 ; Posttraumatic stress disorder F43.10 ; Attention deficit hyperactivity disorder (ADHD), inattentive type, 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 and Borderline personality disorder F60.3 [facility] [id number], [place] [address] 0201 May, Other skilled nursing (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 Z79.899 [facility] [id number], [place] [address]- 5279 May, [facility] [address] [facility] [id number] [place] [address]- 3523 May, [facility] [id number], [place] [address]- 9261 May, Attention deficit hyperactivity disorder (ADHD), inattentive type, 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 [facility] [address], [place] [address]- 5[address] May, [facility] [id number], [place] [address]- 7[address] May, Attention deficit hyperactivity disorder (ADHD), inattentive type, 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 [facility] [id number], [place] [address]- 8208 May, Paranoid schizophrenia F20.0 ; Posttraumatic stress disorder F43.10 ; Attention deficit hyperactivity disorder (ADHD), inattentive type, 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 and Other bell spinner (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 Z79.899 [facility] [id number], [place] [address]- 0215 Apr, Paranoid schizophrenia F20.0 [facility] [id number], [place] [address]- 0036 Apr, Paranoid schizophrenia F20.0 ; Posttraumatic stress disorder F43.10 and Attention deficit hyperactivity disorder (ADHD), inattentive type, 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 [facility] [address] [place] [address]106- 3216 Jan, Paranoid schizophrenia F20.0 ; Posttraumatic stress disorder F43.10 and Attention deficit hyperactivity disorder (ADHD), inattentive type, 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 [facility] [id number] [place] [address] [id number] Dec, Dental examination Z01.20 [facility] [id number] [place] [address] [id number] Nov, Dental examination Z01.20 [facility] [id number] [place] [address] [phone] Nov, Dental examination Z01.20 [facility] [id number] [place] [address] [id number] Nov, Dental caries K02.9 [facility] [address], [place] [address]- 0[address] 13 Nov, 2016 High risk medication use Z79.899 [facility] [address] [place] [address] 23474- 3785 Nov, Paranoid schizophrenia F20.0 ; Posttraumatic stress disorder F43.10 ; Attention deficit hyperactivity disorder (ADHD), inattentive type, 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 and Borderline personality disorder in adult F60.3 [facility] [id number] [place] [address] [id number] Oct, Dental caries K02.9 [facility] [address] [place] [address] 35801- 8617 Sep, Paranoid schizophrenia F20.0 ; Posttraumatic stress disorder F43.10 and Attention deficit hyperactivity disorder (ADHD), inattentive type, 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 [facility] [address], [place] [address]- 9370 Aug, Paranoid schizophrenia F20.0 ; Posttraumatic stress disorder F43.10 and Attention deficit hyperactivity disorder (ADHD), inattentive type, 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 [facility] [id number] [place] [address] 60400 -0272 Aug, Strep throat J02.0 and Cough R05 [facility] [address] [place] [address] 44401- 0534 Aug, [facility] [id number] [place] [address] 03128- 6120 24 Jul, 2016 Paranoid schizophrenia F20.0 ; Posttraumatic stress disorder F43.10 and Attention deficit hyperactivity disorder (ADHD), inattentive type, 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 [facility] [address] [place] [address] 91811- 7290 Jul, [facility] [address] [place] [address] 28238- 2640 28 Jun, 2016 Paranoid schizophrenia F20.0 ; Posttraumatic stress disorder F43.10 and Attention deficit hyperactivity disorder (ADHD), inattentive type, 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 [facility] [address] [id number] Jun, Dental examination Z01.20 [facility] [address] [place] [address] 37356- 9218 Jun, [facility] [address], [place] [address]- 6014 May, Paranoid schizophrenia F20.0 [facility] [address], [place] [address]- 4089 May, Paranoid schizophrenia F20.0 ; Posttraumatic stress disorder F43.10 and Attention deficit hyperactivity disorder (ADHD), inattentive type, 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 [facility] [address] [facility] [id number] [address] May, [facility] [id number] [place] [address] 78138- 7961 May, Paranoid schizophrenia F20.0 [facility] [address] [facility] [id number] [place] [address] 97383- 7042 May, [facility] [id number] [place] [address] 01515- 8274 May, Paranoid schizophrenia F20.0 [facility] [id number], [place] [address]- 3346 May, Schizoaffective disorder, unspecified F25.9 [facility] [id number], [place] [address]- 3585 May, Schizoaffective disorder, unspecified F25.9 [facility] [id number], [place] [address]- 0565 May, [facility] [id number], [place] [address]- 5687 May, Paranoid schizophrenia F20.0 [facility] [id number], [place] [address]- 3277 May, Paranoid schizophrenia F20.0 ; Posttraumatic stress disorder F43.10 and Attention deficit hyperactivity disorder (ADHD), inattentive type, 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 [facility] [address] [facility] [id number] [address] [address] Mar, [facility] [address] [facility] [id number], [place] [address]- 9204 Mar, Paranoid schizophrenia F20.0 ; Posttraumatic stress disorder F43.10 and Attention deficit hyperactivity disorder (ADHD), inattentive type, 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 [facility] [address] [id number], [place] [address]- 4967 Mar, Paranoid schizophrenia F20.0 [facility] [address] [id number] [place] [address]- 3233 Mar, Paranoid schizophrenia F20.0 ; Attention deficit hyperactivity disorder (ADHD), inattentive type, 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 and Posttraumatic stress disorder F43.10 [facility] [address] [id number], [place] [address]- 4481 Mar, [facility] [address] [id number] [place] [address]- 8462 Mar, Paranoid schizophrenia F20.0 ; Posttraumatic stress disorder F43.10 and Attention deficit hyperactivity disorder (ADHD), inattentive type, 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 [facility] [address] [facility] [id number], [place] [address]- 2310 February, [facility] [address] [id number], [place] [address]- 7272 February, [facility] [address] [facility] [id number], [place] [address]- 8227 February, [facility] [address] [facility] [id number], [place] [address]- 2693 February, [facility] [address] [facility] [id number], [place] [address]- 2791 Jan, Paranoid schizophrenia F20.0 [facility] [address] [id number] [address] Jan, Dental examination Z01.20 [facility] [address] [id number][place] [id number] Jan, Dental caries K02.9 [facility] [address] [id number] [address] Jan, Dental examination Z01.20 [facility] [address] [id number][place] [address] Dec, Encounter for dental examination Z01.20 [facility] [address] [facility] [id number], [place] [address]- 5033 Dec, Paranoid schizophrenia F20.0 [facility] [id number] [address] Dec, Dental examination Z01.20 [facility] [id number], [place] [address]- 4198 Dec, [facility] [id number], [place] [address]- 4839 Dec, Paranoid schizophrenia F20.0 ; Posttraumatic stress disorder F43.10 and Attention deficit hyperactivity disorder (ADHD), inattentive type, 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 [facility] [address], [place] [address]- 8142 Nov, Schizoaffective disorder, unspecified F25.9 [facility] [address], [place] [address]- 1913 Oct, Paranoid schizophrenia F20.0 [facility] [id number], [place] [address]- 3853 Oct, [facility] [address], [place] [address]- 3283 Sep, Paranoid schizophrenia F20.0 ; Posttraumatic stress disorder F43.10 and Attention deficit hyperactivity disorder (ADHD), inattentive type, 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 [facility] [address], [place] [address]- 2090 Sep, [facility] [id number], [place] [address]- 9951 Sep, Paranoid schizophrenia F20.0 ; Posttraumatic stress disorder F43.10 and Attention deficit hyperactivity disorder (ADHD), inattentive type, 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 [facility] [id number], [place] [address]- 9464 Aug, Paranoid schizophrenia F20.0 [facility] [id number] [place] [address] 40733- 3641 Aug, [facility] [id number] [place] [address] 49184- 3809 Aug, Posttraumatic stress disorder F43.10 ; Paranoid schizophrenia F20.0 and Attention deficit hyperactivity disorder (ADHD), inattentive type, 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 [facility] [address] [place] [address] 96989- 4895 Jul, Bipolar disorder, unspecified F31.9 [facility] [id number] [place] [address] 16099- 1524 Jul, [facility] [id number] [place] [address] 45750- 5016 Jun, [facility] [id number] [place] [address] 38076- 5868 Jun, Schizoaffective disorder, chronic 295.72 ; Posttraumatic stress disorder 309.81 and Attention deficit disorder 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 314.00 [facility] [id number] [place] [address] 27383- 8481 May, [facility] [id number] [place] [address] 88362- 1379 May, [facility] [address] [place] [address] 31410- 7711 May, Schizoaffective disorder, chronic 295.72 ; Posttraumatic stress disorder 309.81 ; Attention deficit disorder 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 314.00 and Bipolar disorder, unspecified 296.80 [facility] [address] [place] [address] 41943- 7602 Apr, Schizoaffective disorder, chronic 295.72 [facility] [id number] [place] [address] 27835- 8744 Apr, [facility] [address], [place] [address]- 4916 Apr, Schizoaffective disorder, chronic 295.72 ; Posttraumatic stress disorder 309.81 and Attention deficit disorder 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 314.00 [facility] [address], [place] [address]- 8515 Mar, Disorganized schizophrenia, 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 [facility] [address] [id number], [place] [address]- 8374 Mar, [facility] [address], [place] [address]- 0090 Mar, [facility] [address], [place] [address]- 5158 Mar, [facility] [address], [place] [address]- 8002 Mar, [facility] [address], [place] [address]- 8524 February, Schizoaffective disorder, chronic 295.72 [facility] [address], [place] [address]- 4775 February, [facility] [address], [place] [address]- 2223 February, Attention deficit disorder 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 314.00 ; Posttraumatic stress disorder 309.81 and Schizoaffective disorder, chronic 295.72 [facility] [address], [place] [address]- 0096 Jan, [facility] [address], [place] [address]- 1716 Jan, [facility] [address], [place] [address]- 9531 Jan, [facility] [address], [place] [address]- 4051 Dec, [facility] [id number] [place] [address]- 4140 Dec, [facility] [place] [facility] [address] [id number] [place] [address]- 8143 Dec, [facility] [place] [facility] [address] [id number] [place] [address]- 5070 Dec, [facility] [place] [facility] [address] [id number] [place] [address]- 5296 Dec, [facility] [place] [facility] [address] [id number] [place] [address]- 0241 Dec, [facility] [place] [facility] [address] [id number] [place] [address]- 7111 Dec, [facility] [place] [facility] [address] [facility] [id number] [place] [address]- 5920 Dec, [facility] [place] [facility] [address] [facility] [id number] [place] [address]- 6594 Nov, [facility] [place] [facility] [address] [facility] [id number] [place] [address] Nov, [facility] [place] [facility] [address] [facility] [id number] [place] [address] Nov, [facility] [place] [facility] [address] [facility] [id number] [place] [address] Nov, 2014 [facility] [place] [facility] [address] [facility] [id number] [place] [address] Nov, 2014 [facility] [place] [facility] [address] [facility] [id number] [place] [address] Nov, 2014 [facility] [place] [facility] [address] [facility] [id number] [place] [address] Nov, 2014 [facility] [place] [facility] [address] [facility] [id number] [place] [address] 7468 Nov, 2014 [facility] [place] [facility] [address] [facility] [id number] [place] [address] 2420 Nov, [facility] [place] [facility] [address] [id number] [place] [address] 0985 Nov, [facility] [place] [facility] [address] [id number] [place] [address] Oct, [facility] [place] [facility] [address] [id number] [place] [address] 2019 Oct, [facility] [place] [facility] [address] [id number] [place] [address] 8452 Oct, [facility] [place] [facility] [address] [id number] [place] [address] 5260 Oct, [facility] [place] [facility] [address] [id number] [place] [address]- 1196 Oct, [facility] [place] [facility] [address] [id number] [place] [address] 4989 Oct, [facility] [place] [facility] [address] [id number] [place] [address] 6597 Oct, [facility] [place] [facility] [address] [id number] [place] [address] 4065 Sep, [facility] [place] [facility] [address] [id number] [place] [address]- 1697 17 Sep, 2014 [facility] [place] [facility] [address] [id number] [place] [address]- 5672 15 Sep, 2014 [facility] [place] [facility] [address] [id number] [place] [address]- 5774 15 Sep, 2014 [facility] [place] [facility] [address] [id number] [place] [address]- 1224 20 Aug, 2014 [facility] [place] [facility] [address] [id number] [place] [address]- 9789 20 Aug, 2014 [facility] [place] [facility] [address] [id number] [place] [address]- 3675 14 Aug, 2014 [facility] [place] [facility] [address] [id number] [place] [address]- 9997 14 Aug, 2014 [facility] [place] [facility] [address] [id number] [place] [address]- 4325 Aug, [facility] [place] [facility] [address] [id number] [place] [address]- 1381 Aug, [facility] [place] [facility] [address] [id number] [place] [address]- 9818 Jul, [facility] [place] [facility] [address] [id number] [place] [address]- 2219 Jul, [facility] [place] [facility] [address] [id number] [place] [address]- 2376 Jul, [facility] [place] [facility] [address] [id number] [place] [address]- 4201 Jul, [facility] [place] [facility] [address] [id number] [place] [address]- 4427 Jul, [facility] [place] [facility] [address] [id number] [place] [address]- 9853 15 Jul, 2014 [facility] [place] [facility] [address] [id number] [place] [address]- 1491 27 Jun, 2014 [facility] [place] [facility] [address] [id number] [place] [address]- 4011 27 Jun, 2014 [facility] [place] [facility] [address] [id number] [place] [address]- 2540 26 Jun, 2013 [facility] [place] [facility] [address] [id number] [place] [address]- 2545 26 Jun, 2013 [facility] [place] [facility] [address] [id number] [place] [address]- 4544 26 Jun, 2013 [facility] [place] [facility] [address] [id number] [place] [address]- 2855 26 Jun, 2013 [facility] [place] [facility] [address] [id number] [place] [address]- 8006 Jun, [facility] [place] [facility] [address] [id number] [place] [address]- 6827 Jun, [facility] [place] [facility] [address] [id number] [place] [address]- 9568 Jun, [facility] [place] [facility] [address] [id number] [place] [address]- 6165 Jun, [facility] [place] [facility] [address] [id number] [place] [address]- 7563 Jun, [facility] [place] [facility] [address] [id number] [place] [address]- 2176 May, [facility] [place] [facility] [address] [id number] [place] [address]- 1127 May, [facility] [place] [facility] [address] [id number] [place] [address]- 0274 May, [facility] [place] [facility] [address] [id number] [place] [address]- 1405 May, [facility] [place] [facility] [address] [id number] [place] [address]- 8015 May, [facility] [place] [facility] [address] [id number] [place] [address]- 1621 May, [facility] [place] [facility] [address] [id number] [place] [address]- 9843 May, [facility] [place] [facility] [address] [id number] [place] [address]- 6443 May, [facility] [place] [facility] [address] [id number] [place] [address]- 0166 May, [facility] [place] [facility] [address] [id number] [place] [address]- 7939 May, [facility] [place] [facility] [address] [id number] [place] [address]- 1486 Apr, [facility] [place] [facility] [address] [id number] [address] Apr, [facility] [place] [facility] [address] [id number] [place] [address]- 4886 Apr, [facility] [place] [facility] [address] [id number] [place] [address]- 7446 Apr, [facility] [place] [facility] [address] [id number] [place] [address]- 6210 Apr, [facility] [place] [facility] [address] [id number] [place] [address]- 9385 Apr, [facility] [place] [facility] [address] [id number] [place] [address]- 6441 Apr, [facility] [place] [facility] [address] [id number] [place] [address]- 2789 Apr, [facility] [place] [facility] [address] [id number] [place] [address]- 1400 Apr, [facility] [place] [facility] [address] [id number] [place] [address]- 2546 Apr, [facility] [place] [facility] [address] [id number] [place] [address]- 1465 Mar, [facility] [place] [facility] [address] [id number] [place] [address]- 5948 Mar, [facility] [place] [facility] [address] [id number] [place] [address]- 7527 Mar, [facility] [place] [facility] [address] [id number] [place] [address]- 8462 Mar, [facility] [place] [facility] [address] [id number] [place] [address]- 1559 Mar, [facility] [place] [facility] [address] [id number] [place] [address]- 6944 Mar, [facility] [place] [facility] [address] [id number] [place] [address]- 4523 Mar, [facility] [place] [facility] [address] [id number] [place] [address]- 6918 16 Mar, 2014 [facility] [place] [facility] [address] [id number] [place] [address]- 5993 Mar, [facility] [place] [facility] [address] [id number] [place] [address]- 7415 Mar, [facility] [place] [facility] [address] [id number] [place] [address]- 0059 Mar, [facility] [place] [facility] [address] [id number] [place] [address]- 2985 Mar, [facility] [place] [facility] [address] [id number] [place] [address]- 2571 Mar, [facility] [place] [facility] [address] [id number] [place] [address]- 2012 Mar, [facility] [place] [facility] [address] [id number] [place] [address]- 3942 Mar, [facility] [place] [facility] [address] [id number] [place] [address]- 6049 Mar, [facility] [place] [facility] [address] [id number] [place] [address]- 8990 Mar, [facility] [place] [facility] [address] [id number] [place] [address]- 4814 Mar, [facility] [place] [facility] [address] [id number] [place] [address]- 6339 Mar, [facility] [place] [facility] [address] [id number] [place] [address]- 1397 Mar, [facility] [place] [facility] [address] [id number] [place] [address]- 4945 February, [facility] [place] [facility] [address] [id number] [place] [address]- 5770 February, [facility] [place] [facility] [address] [id number] [place] [address]- 4332 February, [facility] [address] [id number] [place] [address]- 0262 February, [facility] [place] [facility] [address] [id number] [place] [address]- 7500 February, [facility] [place] [facility] [address] [id number] [place] [address]- 7806 February, [facility] [place] [facility] [address] [id number] [place] [address]- 6627 February, [facility] [place] [facility] [address] [id number] [place] [address]- 6473 February, [facility] [place] [facility] [address] [id number] [place] [address]- 8369 February, [facility] [place] [facility] [address] [id number] [place] [address]- 0339 February, [facility] [place] [facility] [address] [id number] [place] [address]- 7352 February, [facility] [place] [facility] [address] [id number] [place] [address]- 9543 February, [facility] [place] [facility] [address] [id number] [place] [address]- 1399 February, [facility] [place] [facility] [address] [id number] [place] [address]- 0419 February, [facility] [place] [facility] [address] [id number] [place] [address]- 2719 February, [facility] [place] [facility] [address] [id number] [place] [address]- 2326 February, [facility] [place] [facility] [address] [id number] [place] [address]- 3670 February, [facility] [place] [facility] [address] [id number] [place] [address]- 9161 February, [facility] [place] [facility] [address] [id number] [place] [address]- 1863 February, [facility] [place] [facility] [address] [id number] [place] [address]- 1964 February, [facility] [place] [facility] [address] [id number] [place] [address]- 7510 February, [facility] [place] [facility] [address] [id number] [place] [address]- 8944 Jan, [facility] [place] [facility] [address] [id number] [place] [address]- 0872 Jan, [facility] [place] [facility] [address] [id number] [place] [address]- 2033 Jan, [facility] [place] [facility] [address] [id number] [place] [address]- 0756 Jan, [facility] [place] [facility] [address] [id number] [place] [address]- 9568 Jan, [facility] [place] [facility] [address] [id number] [place] [address]- 8576 Jan, [facility] [place] [facility] [address] [id number] [place] [address]- 3359 Jan, [facility] [place] [facility] [address] [id number] [place] [address]- 1439 Jan, [facility] [place] [facility] [address] [id number] [place] [address]- 7611 Dec, [facility] [place] [facility] [address] [id number] [place] [address]- 8570 Dec, [facility] [place] [facility] [address] [id number] [place] [address]- 2194 Dec, [facility] [place] [facility] [address] [id number] [place] [address]- 7893 Dec, [facility] [place] [facility] [address] [id number] [place] [address]- 8849 Dec, [facility] [place] [facility] [address] [id number] [place] [address]- 7386 15 Dec, 2013 [facility] [place] [facility] [address] [id number] [place] [address]- 1492 15 Dec, 2013 [facility] [place] [facility] [address] [id number] [place] [address]- 9771 11 Dec, 2013 [facility] [place] [facility] [address] [id number] [place] [address]- 3404 10 Dec, 2013 [facility] [place] [facility] [address] [id number] [place] [address]- 9683 10 Dec, 2013 [facility] [place] [facility] [address] [id number] [place] [address]- 4472 18 Nov, 2013 [facility] [place] [facility] [address] [id number] [place] [address]- 6567 17 Nov, 2013 [facility] [place] [facility] [address] [id number] [place] [address]- 2288 Nov, [facility] [place] [facility] [address] [id number] [place] [address]- 3992 Nov, [facility] [place] [facility] [address] [id number] [place] [address]- 8506 Nov, [facility] [place] [facility] [address] [id number] [place] [address]- 0291 Oct, [facility] [place] [facility] [address] [id number] [place] [address]- 4966 Oct, [facility] [place] [facility] [address] [id number] [place] [address]- 4500 Oct, [facility] [place] [facility] [address] [id number] [place] [address]- 1246 Sep, [facility] [place] [facility] [address] [id number] [place] [address]- 1433 Sep, [facility] [place] [facility] [address] [id number] [place] [address]- 7241 Sep, [facility] [address] [id number] [place] [address]- 7232 Sep, [facility] [place] [facility] [address] [id number], [place] [address]- 0045 Aug, [facility] [place] [facility] [address] [id number] [place] [address]- 2212 Aug, [facility] [place] [facility] [address] [id number] [place] [address]- 0610 Jul, [facility] [place] [facility] [address] [id number] [place] [address]- 6982 Jul, [facility] [place] [facility] [address] [id number] [place] [address]- 7220 Jul, [facility] [address] [id number], [place] [address]- 6570 Jul, [facility] [place] [facility] [address] [id number], [place] [address]- 9425 Jul, [facility] [place] [facility] [address] [id number] [place] [address]- 8886 25 Jun, 2013 [facility] [place] [facility] [address] [id number] [place] [address]- 6699 25 Jun, 2013 [facility] [place] [facility] [address] [id number] [place] [address]- 1296 19 Sep, 2012 [facility] [place] [facility] [address] [id number], [place] [address]- 5595 18 Sep, 2012 [facility] [place] [facility] [address] [id number] [place] [address]- 1615 16 Sep, 2012 [facility] [place] [facility] [address] [id number], [place] [address]- 0912 12 Sep, 2012 [facility] [place] [facility] [address] [id number], [place] [address]- 6261 11 Sep, 2012 [facility] [place] [facility] [address] [id number] [place] [address]- 2110 May, [facility] [address] [id number] [place] [address]- 8391 May, [facility] [place] [facility] [address] [id number] [place] [address]- 8457 Apr, [facility] [place] [facility] [address] [id number] [place] [address]- 8349 Apr, [facility] [place] [facility] [address] [id number] [place] [address]- 6005 Apr, [facility] [place] [facility] [address] [id number] [place] [address]- 1174 Mar, [facility] [address] [id number] [place] [address]- 2709 Mar, [facility] [address] [id number] [place] [address]- 4708 February, [facility] [address] [id number] [place] [address]- 1146 February, [facility] [address] [id number] [place] [address]- 1893 February, [facility] [address] [id number] [place] [address]- 2447 February, [facility] [address] [id number] [place] [address]- 4533 Jan, [facility] [place] [facility] [address] [id number] [place] [address]- 7120 Jan, [facility] [place] [facility] [address] [id number] [place] [address]- 5633 Jan, [facility] [place] [facility] [address] [id number] [place] [address]- 2160 Dec, [facility] [place] [facility] [address] [id number] [place] [address]- 2977 Dec, [facility] [address] [id number] [place] [address]- 5346 Dec, [facility] [place] [facility] [address] [id number] [place] [address]- 9104 Dec, [facility] [place] [facility] [address] [id number] [place] [address]- 4797 Nov, [facility] [place] [facility] [address] [id number] [place] [address]- 5372 Nov, [facility] [place] [facility] [address] [id number] [place] [address]- 4185 Oct, [facility] [place] [facility] [address] [id number] [place] [address]- 8526 Oct, [facility] [place] [facility] [address] [id number] [place] [address]- 4783 Oct, [facility] [place] [facility] [address] [id number] [place] [address]- 7585 Oct, [facility] [place] [facility] [address] [id number] [place] [address]- 2818 Aug, [facility] [place] [facility] [address] [id number] [place] [address]- 6219 Aug, [facility] [place] [facility] [address] [id number] [place] [address]- 0956 Jun, [facility] [place] [facility] [address] [id number] [place] [address]- 7081 May, [facility] [place] [facility] [address] [id number] [place] [address]- 2181 May, [facility] [place] [facility] [address] [id number] [place] [address]- 2451 Apr, [facility] [place] [facility] [address] [id number] [place] [address]- 2546 Apr, [facility] [place] [facility] [address] [id number] [place] [address]- 0080 05 Apr, 2012 [facility] [address] [id number] [place] [address]- 0202 Mar, [facility] [address] [id number] [place] [address]- 5734 Mar, [facility] [address] [id number] [place] [address]- 5053 Mar, [facility] [address] [id number] [place] [address]- 5591 Mar, [facility] [address] [id number] [place] [address]- 2245 Mar, [facility] [address] [id number] [place] [address]- 1659 February, [facility] [address] [id number] [place] [address]- 0859 February, [facility] [address] [id number] [place] [address]- 2458 February, [facility] [address] [id number] [place] [address]- 1157 February, [facility] [address] [id number] [place] [address]- 1635 February, [facility] [address] [id number] [place] [address]- 2034 February, [facility] [address] [id number] [place] [address]- 6148 February, [facility] [place] [facility] [address] [id number] [place] [address]- 1999 Jan, [facility] [place] [facility] [address] [id number] [place] [address]- 4074 18 Jan, 2012 [facility] [address] [id number] [place] [address] 17 Jan, 2012 [facility] [place] [facility] [address] [id number] [place] [address] 13 Jan, 2012 [facility] [place] [facility] [address] [id number] [place] [address] 9836 10 Jan, 2012 [facility] [place] [facility] [address] [id number] [place] [address] 04 Jan, 2012 [facility] [place] [facility] [address] [id number] [place] [address] 30 Dec, 2011 [facility] [place] [facility] [address] [id number] [place] [address]48 24 Dec, 2011 [facility] [place] [facility] [address] [id number] [place] [address]36 20 Dec, 2011 [facility] [place] [facility] [address] [facility] [id number] [place] [address] Dec, [facility] [place] [facility] [address] [id number] [place] [address] Dec, [facility] [place] [facility] [address] [id number] [place] [address] 28 Nov, 2011 [facility] [place] [facility] [address] [facility] [id number] [place] [address]256 27 Nov, 2011 [facility] [place] [facility] [address] [id number] [place] [address] Nov, [facility] [place] [facility] [address] [id number] [place] [address]- [address]146 14 Nov, 2011 [facility] [place] [facility] [address] [id number] [place] [address] 10 Nov, 2011 [facility] [place] [facility] [address] [id number] [place] [address] Nov, [facility] [place] [facility] [address] [facility] [id number] [place] [address] Oct, [facility] [place] [facility] [address] [id number] [place] [address] 10 Oct, 2011 [facility] [address] [id number] [place] [address] Oct, [facility] [address] [id number] [place] [address] Oct, [facility] [address] [id number] [place] [address] Oct, [facility] [address] [id number] [place] [address]99 Sep, [facility] [address] [id number] [place] [address] Sep, [facility] [address] [id number] [place] [address] Sep, [facility] [address] [id number] [place] [address] 267[address] 14 Sep, 2011 [facility] [address] [id number] [place] [address]69 14 Sep, 2011 [facility] [place] [facility] [address] [id number] [place] [address] Sep, [facility] [address] [id number] [place] [address] Sep, [facility] [address] [id number] [place] [address] Sep, [facility] [place] [facility] [address] [id number] [place] [address] Sep, [facility] [place] [facility] [address] [id number] [place] [address]- 8830 30 Aug, 2011 [facility] [place] [facility] [address] [id number] [place] [address] Aug[facility] [address] [id number] [place] [address]- 2021 Aug, [facility] [place] [facility] [address] [id number] [place] [address] 6367 Aug, [facility] [place] [facility] [address] [id number] [place] [address] Aug, [facility] [place] [facility] [address] [id number] [place] [address]- 4316 Aug, [facility] [place] [facility] [address] [id number] [place] [address] Aug, [facility] [place] [facility] [address] [id number] [place] [address] Aug, [facility] [place] [facility] [address] [id number] [place] [address] 18[address] Aug, [facility] [place] [facility] [address] [id number] [place] [address] 7032 Aug, [facility] [place] [facility] [address] [id number] [place] [address]177 Aug, [facility] [place] [facility] [address] [id number] [place] [address]- 9425 Aug, [facility] [place] [facility] [address] [id number] [place] [address] Jul, [facility] [place] [facility] [address] [id number] [place] [address] 99[address] Jul, [facility] [place] [facility] [address] [id number] [address] Jul, [facility] [place] [facility] [address] [id number] [place] [address] 45[address] Jul, [facility] [place] [facility] [address] [id number] [place] [address]- 1872 Jul, [facility] [place] [facility] [address] [id number] [place] [address]- 0723 Jul, [facility] [place] [facility] [address] [id number] [address] Jul, [facility] [id number] [address] Jul, [facility] [id number] [address] Jul, [facility] [id number] [address] Jul, [facility] [id number] [place] [address] Nov, [facility] [id number] [address] Aug, [facility] [id number] [address] Aug, [facility] [id number] [address] Aug, [facility] [id number] [place] [address] Aug, [facility] [id number] [address] Jul, IMMUNIZATIONS No Known Immunizations SOCIAL HISTORY Never Assessed REASON FOR VISIT PLAN OF CARE VITAL SIGNS MEDICATIONS Medication Instructions Dosage Frequency Start Date End Date Duration Status Topamax 100 mg Orally Twice a day 1.5 tablet 12h 30 days Active RESULTS No [...] attempt by hanging 06/14/2016 Hospitalization History [facility] 01/30/2018-02/10/2008 Hospitalization History [facility] 05/04/18-05/09/18
--- OUTSIDE RECORDS SUMMARY | 2018-08-15 20:24 | XMS REPORT ---
Author Author REGAN SAWYER Organization 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 64272237 Problem Schizoaffective disorder, depressive type F25.1 Active 04783975 Problem Borderline personality disorder F60.3 Active 53797360 Problem Attention deficit hyperactivity disorder (ADHD), inattentive type, 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 88949751 Problem Schizoaffective disorder, unspecified F25.9 Active 34825118 Problem High risk medication use Z79.899 Active 618250764 Problem Posttraumatic stress disorder F43.10 Active 34800479 Problem Obsessive-compulsive disorders 300.3 Active 574234214 Problem Generalized anxiety disorder 300.02 Active 68320915 Problem Attention deficit disorder 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 314.00 Active 58978470 Problem Bipolar disorder, unspecified 296.80 Active 91729395 Problem Posttraumatic stress disorder 309.81 Active 40472468 Problem Paranoid schizophrenia, unspecified condition 295.30 Active 05148889 ALLERGIES Substance Reaction Event Type Date Status [...] February, Active ENCOUNTERS Encounter Location Date Diagnosis [facility] [address] [facility] [id number] [address] May, [facility] [address] [facility] [id number], [place] [address] May, Paranoid schizophrenia F20.0 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 [address] [facility] [id number], [place] [address] Apr, 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 [address] [id number], [place] [address] Apr, [facility] [address] [id number], [place] [address] Apr, Schizoaffective disorder, depressive type F25.1 and Borderline personality disorder F60.3 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 [address] [facility] [id number], [place] [address] Apr, 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 [address], [place] [address] Apr, [facility] [address], [place] [address] Mar, Paranoid schizophrenia F20.0 [facility] [address], [place] [address] Mar, 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 [address], [place] [address] February, Paranoid schizophrenia F20.0 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 [address], [place] [address] February, [facility] [address], [place] [address] 5669 February, Paranoid schizophrenia F20.0 [facility] [address], [place] [address] 7487 February, Paranoid schizophrenia F20.0 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 [address], [place] [address] 9235 Jan, Paranoid schizophrenia F20.0 [facility] [address], [place] [address] 0943 Jan, Paranoid schizophrenia F20.0 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 [address], [place] [address] Dec, 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 [address], [place] [address] Nov, [facility] [id number], [place] [address] 3651 Oct, Paranoid schizophrenia F20.0 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 [address]00565[address], [place] [address] Oct, [facility] [address], [place] [address]- 2738 Oct, [facility] [address], [place] [address]- 4[address] Sep, 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 [address], [place] [address] 3798 Sep, Paranoid schizophrenia F20.0 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 [address], [place] [address]- 78[address] Aug, 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 [address], [place] [address]- 2180 Jul, Paranoid schizophrenia F20.0 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 [address], [place] [address]- 6979 May, Other group home (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 Z79.899 [facility] [address], [place] [address]- 4902 May, [facility] [address], [place] [address]- 9116 May, 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 [address], [place] [address]- 6770 May, 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 [address] [id number], [place] [address]- 8363 Apr, Paranoid schizophrenia F20.0 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 [address], [place] [address]- 8013 February, 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 [address], [place] [address]- 0688 Nov, High risk medication use Z79.899 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 [id number] [place] [address]- 9169 Aug, 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 [address] [facility] [id number], [place] [address]- 4610 Jul, 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 [address] [facility] [id number], [place] [address]- [address] Jun, [facility] [id number], [place] [address]- 9816 May, Paranoid schizophrenia F20.0 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 [id number] [place] [address] 65811- 1936 May, [facility] [id number] [place] [address] 09001- 2210 May, Paranoid schizophrenia F20.0 [facility] [address] [place] [address] 27040- 7207 May, [facility] [id number], [place] [address]- 7402 May, Paranoid schizophrenia F20.0 [facility] [id number], [place] [address]- 2467 May, Schizoaffective disorder, unspecified F25.9 [facility] [address], [place] [address]- 9999 May, Schizoaffective disorder, unspecified F25.9 [facility] [address] [facility] [id number], [place] [address]- 1827 May, [facility] [id number] [place] [address] 48491- 6953 May, Paranoid schizophrenia F20.0 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 [address] [facility] [id number] [place] [address]- 5771 Mar, Paranoid schizophrenia F20.0 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 [address] [facility] [id number] [place] [address]- 5689 February, [facility] [address] [facility] [id number], [place] [address]- 2179 February, [facility] [address] [facility] [id number] [place] [address]- 0694 February, [facility] [address] [facility] [id number] [place] [address]- 1722 February, [facility] [address] [facility] [id number] [place] [address]- 2649 Jan, Paranoid schizophrenia F20.0 [facility] [address] [id number] [address] Jan, Dental examination Z01.20 [facility] [address] [id number] [address] Jan, Dental caries K02.9 [facility] [address] [id number][place] [address] Jan, Dental examination Z01.20 [facility] [address] [id number] [address] Dec, Encounter for dental examination Z01.20 [facility] [address] [facility] [id number] [place] [address] 99809- 3409 Dec, Paranoid schizophrenia F20.0 [facility] [address] [id number] [address] Dec, Dental examination Z01.20 [facility] [address], [place] [address]- 4832 Dec, 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 [address], [place] [address]- 8145 Nov, Schizoaffective disorder, unspecified F25.9 [facility] [id number], [place] [address]- 0926 Oct, Paranoid schizophrenia F20.0 [facility] [id number], [place] [address]- 1380 Oct, 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 [id number], [place] [address]- 4551 Sep, 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 [address], [place] [address]- 4203 Aug, Paranoid schizophrenia F20.0 [facility] [address], [place] [address]- 3651 Aug, 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 [id number], [place] [address]- 7215 Jul, Bipolar disorder, unspecified F31.9 [facility] [address], [place] [address]- 8104 Jul, [facility] [address] [place] [address] 47719- 9842 Jun, [facility] [address], [place] [address]- 2920 Jun, Schizoaffective disorder, chronic 295.72 ; Posttraumatic stress disorder 309.81 and Attention deficit disorder 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 314.00 [facility] [address], [place] [address]- 0426 May, [facility] [id number] [address]- 2196 May, [facility] [id number], [place] [address]- 5593 May, Schizoaffective disorder, chronic 295.72 ; Posttraumatic stress disorder 309.81 ; Attention deficit disorder 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 314.00 and Bipolar disorder, unspecified 296.80 [facility] [address], [place] [address]- 0932 Apr, Schizoaffective disorder, chronic 295.72 [facility] [address], [place] [address]- 0925 Apr, [facility] [id number] [place] [address] 89946- 8427 Apr, Schizoaffective disorder, chronic 295.72 ; Posttraumatic stress disorder 309.81 and Attention deficit disorder 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 314.00 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 [address], [place] [address]- 9817 Mar, [facility] [id number] [place] [address] 12810- 2779 Mar, [facility] [address], [place] [address]- 4869 Mar, [facility] [id number], [place] [address]- 5020 Mar, [facility] [address], [place] [address]- 5623 February, Schizoaffective disorder, chronic 295.72 [facility] [address], [place] [address]- 3439 February, [facility] [address], [place] [address]- 5902 February, Attention deficit disorder 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 314.00 ; Posttraumatic stress disorder 309.81 and Schizoaffective disorder, chronic 295.72 [facility] [address], [place] [address]- 1614 Jan, [facility] [place] [facility] [address] [id number] [place] [address]- 8318 14 Jan, 2015 [facility] [place] [facility] [address] [id number] [place] [address]- 5061 Jan, [facility] [place] [facility] [address] [id number] [place] [address]- 3160 25 Dec, 2014 [facility] [place] [facility] [address] [id number] [place] [address]- 0526 Dec, [facility] [place] [facility] [address] [id number] [place] [address]- 9722 Dec, [facility] [place] [facility] [address] [id number] [place] [address] Dec, [facility] [place] [facility] [address] [facility] [id number] [place] [address] Dec, [facility] [place] [facility] [address] [id number] [place] [address] Dec, [facility] [place] [facility] [address] [id number] [place] [address] Dec, [facility] [place] [facility] [address] [id number] [place] [address] Dec, [facility] [place] [facility] [address] [id number] [place] [address] Nov, [facility] [place] [facility] [address] [id number] [place] [address] Nov, [facility] [place] [facility] [address] [id number] [place] [address] Nov, [facility] [place] [facility] [address] [id number] [place] [address] Nov, [facility] [place] [facility] [address] [id number] [place] [address] Nov, [facility] [place] [facility] [address] [id number] [place] [address] Nov, [facility] [place] [facility] [address] [id number] [place] [address] Nov, [facility] [place] [facility] [address] [id number] [place] [address] Nov, [facility] [place] [facility] [address] [id number] [place] [address] Nov, [facility] [place] [facility] [address] [id number] [place] [address] 7585 Nov, [facility] [place] [facility] [address] [id number] [place] [address] 3963 Oct, [facility] [place] [facility] [address] [id number] [place] [address] 1503 Oct, [facility] [place] [facility] [address] [id number] [place] [address] 4669 Oct, [facility] [place] [facility] [address] [id number] [place] [address] 7618 Oct, [facility] [place] [facility] [address] [id number] [place] [address]- 4713 Oct, [facility] [place] [facility] [address] [facility] [id number] [place] [address]- 9846 Oct, [facility] [place] [facility] [address] [id number] [place] [address] Oct, [facility] [place] [facility] [address] [id number], [place] [address] Sep, [facility] [place] [facility] [address] [id number] [place] [address] 7993 Sep, [facility] [place] [facility] [address] [id number] [place] [address]- 8179 Sep, [facility] [place] [facility] [address] [id number] [place] [address]- 4746 Sep, [facility] [place] [facility] [address] [id number] [place] [address]- 5358 Aug, [facility] [place] [facility] [address] [id number] [place] [address]- 6118 Aug, [facility] [place] [facility] [address] [id number] [place] [address]- 7972 Aug, [facility] [place] [facility] [address] [id number] [place] [address]- 3338 Aug, [facility] [place] [facility] [address] [id number] [place] [address]- 6125 Aug, [facility] [place] [facility] [address] [id number] [place] [address]- 7698 Aug, [facility] [place] [facility] [address] [id number] [place] [address]- 1150 Jul, [facility] [place] [facility] [address] [id number] [place] [address]- 1545 Jul, [facility] [place] [facility] [address] [id number] [place] [address]- 7646 Jul, [facility] [place] [facility] [address] [id number] [place] [address]- 9064 Jul, [facility] [place] [facility] [address] [id number] [place] [address]- 4898 Jul, [facility] [place] [facility] [address] [id number] [place] [address]- 0228 Jul, [facility] [place] [facility] [address] [id number] [place] [address]- 6561 27 Jun, 2014 [facility] [place] [facility] [address] [id number] [place] [address]- 8603 27 Jun, 2014 [facility] [place] [facility] [address] [id number] [place] [address]- 1427 26 Jun, 2014 [facility] [place] [facility] [address] [id number] [place] [address]- 4007 Jun, 2013 [facility] [place] [facility] [address] [id number] [place] [address]- 2599 Jun, 2013 [facility] [place] [facility] [address] [id number] [place] [address]- 8137 Jun, [facility] [place] [facility] [address] [id number] [place] [address] 2546 Jun, 2013 [facility] [place] [facility] [address] [id number] [place] [address] 2547 Jun, 2013 [facility] [place] [facility] [address] [id number] [place] [address]- 2223 Jun, 2013 [facility] [place] [facility] [address] [id number] [place] [address]- 1510 Jun, 2013 [facility] [place] [facility] [address] [id number] [place] [address]- 9293 Jun, [facility] [place] [facility] [address] [id number] [place] [address]- 4102 May, [facility] [place] [facility] [address] [id number] [place] [address]- 4463 May, [facility] [place] [facility] [address] [id number] [place] [address]- 8362 May, [facility] [place] [facility] [address] [id number] [place] [address]- 5538 May, [facility] [place] [facility] [address] [id number] [place] [address]- 9940 May, [facility] [place] [facility] [address] [id number] [place] [address]- 3257 May, [facility] [place] [facility] [address] [id number] [place] [address]- 5379 May, [facility] [place] [facility] [address] [id number] [place] [address]- 4844 May, [facility] [place] [facility] [address] [id number] [place] [address]- 3837 May, [facility] [place] [facility] [address] [id number] [place] [address]- 3965 May, [facility] [place] [facility] [address] [id number] [place] [address]- 8318 Apr, [facility] [place] [facility] [address] [id number] [place] [address]- 2706 Apr, [facility] [place] [facility] [address] [id number] [place] [address]- 0035 Apr, [facility] [place] [facility] [address] [id number] [place] [address]- 4007 Apr, [facility] [place] [facility] [address] [id number] [place] [address]- 4913 Apr, [facility] [place] [facility] [address] [id number] [place] [address]- 7409 Apr, [facility] [place] [facility] [address] [id number] [place] [address]- 3889 Apr, [facility] [place] [facility] [address] [id number] [place] [address]- 6673 Apr, [facility] [place] [facility] [address] [id number] [place] [address]- 0231 Apr, [facility] [place] [facility] [address] [id number] [place] [address]- 1401 Apr, [facility] [place] [facility] [address] [id number] [place] [address]- 0364 Mar, [facility] [place] [facility] [address] [id number] [place] [address]- 6390 Mar, [facility] [place] [facility] [address] [id number] [place] [address] 1940 Mar, [facility] [place] [facility] [address] [id number] [place] [address]- 2028 Mar, [facility] [place] [facility] [address] [id number] [place] [address]- 4018 Mar, [facility] [place] [facility] [address] [id number] [place] [address]- 7332 Mar, [facility] [place] [facility] [address] [id number] [place] [address]- 8335 Mar, [facility] [place] [facility] [address] [id number] [place] [address]- 5408 Mar, [facility] [place] [facility] [address] [id number] [place] [address]- 1175 Mar, [facility] [place] [facility] [address] [id number] [place] [address]- 9302 Mar, [facility] [place] [facility] [address] [id number] [place] [address]- 2220 Mar, [facility] [place] [facility] [address] [id number] [place] [address]- 7081 Mar, [facility] [place] [facility] [address] [id number] [place] [address]- 5328 Mar, [facility] [place] [facility] [address] [id number] [place] [address]- 8902 Mar, [facility] [place] [facility] [address] [id number], [place] [address]- 2504 Mar, [facility] [place] [facility] [address] [id number], [place] [address]- 7388 Mar, [facility] [place] [facility] [address] [id number] [place] [address]- 7053 Mar, [facility] [place] [facility] [address] [id number] [place] [address]- 9656 Mar, [facility] [place] [facility] [address] [id number], [place] [address]- 7978 04 Mar, 2014 [facility] [place] [facility] [address] [id number], [place] [address]- 2320 Mar, [facility] [address] [id number] [place] [address]- 5886 February, [facility] [place] [facility] [address] [id number] [place] [address]- 5755 February, [facility] [place] [facility] [address] [id number] [place] [address]- 3399 February, [facility] [place] [facility] [address] [id number] [place] [address]- 0041 February, [facility] [place] [facility] [address] [id number] [place] [address]- 8749 February, [facility] [place] [facility] [address] [id number] [place] [address]- 8813 February, [facility] [address] [id number] [place] [address]- 2494 February, [facility] [place] [facility] [address] [id number] [place] [address]- 6847 February, [facility] [place] [facility] [address] [id number] [place] [address]- 9669 February, [facility] [place] [facility] [address] [id number] [place] [address]- 1859 February, [facility] [place] [facility] [address] [id number] [place] [address]- 4842 February, [facility] [place] [facility] [address] [id number] [place] [address]- 5984 February, [facility] [place] [facility] [address] [id number] [place] [address]- 9986 February, [facility] [place] [facility] [address] [id number] [place] [address]- 7584 February, [facility] [place] [facility] [address] [id number] [place] [address]- 2063 February, [facility] [place] [facility] [address] [id number] [place] [address]- 0286 February, [facility] [place] [facility] [address] [id number] [place] [address]- 3428 February, [facility] [place] [facility] [address] [id number] [place] [address]479 February, [facility] [place] [facility] [address] [id number] [place] [address]- 9491 February, [facility] [place] [facility] [address] [id number] [place] [address]- 4528 February, [facility] [place] [facility] [address] [id number] [place] [address]- 3085 February, [facility] [place] [facility] [address] [id number] [place] [address]- 9004 Jan, [facility] [place] [facility] [address] [id number] [place] [address]- 9632 Jan, [facility] [place] [facility] [address] [id number] [place] [address]- 7212 Jan, [facility] [place] [facility] [address] [id number] [place] [address]- 7728 Jan, [facility] [place] [facility] [address] [id number] [place] [address]- 4114 Jan, [facility] [place] [facility] [address] [id number] [place] [address]- 0259 Jan, [facility] [place] [facility] [address] [id number] [place] [address]- 6653 Jan, [facility] [place] [facility] [address] [id number] [place] [address]- 1208 Jan, [facility] [place] [facility] [address] [id number] [place] [address]- 2869 Dec, [facility] [place] [facility] [address] [id number] [place] [address]- 4769 20 Dec, 2013 [facility] [place] [facility] [address] [id number] [place] [address]- 4395 20 Dec, 2013 [facility] [place] [facility] [address] [id number] [place] [address]- 6983 19 Dec, 2013 [facility] [place] [facility] [address] [id number] [place] [address]- 7134 19 Dec, 2013 [facility] [place] [facility] [address] [id number] [place] [address]- 5508 15 Dec, 2013 [facility] [place] [facility] [address] [id number] [place] [address]- 2952 15 Dec, 2013 [facility] [place] [facility] [address] [id number] [place] [address]- 8019 11 Dec, 2013 [facility] [place] [facility] [address] [id number] [place] [address]- 1070 10 Dec, 2013 [facility] [place] [facility] [address] [id number] [place] [address]- 9581 10 Dec, 2013 [facility] [place] [facility] [address] [id number] [place] [address]- 1615 18 Nov, 2013 [facility] [place] [facility] [address] [id number] [place] [address]- 0223 17 Nov, 2013 [facility] [place] [facility] [address] [id number] [place] [address]- 1447 Nov, [facility] [place] [facility] [address] [id number] [place] [address]- 6345 Nov, [facility] [place] [facility] [address] [id number] [place] [address]- 3088 Nov, [facility] [place] [facility] [address] [id number] [place] [address]- 9218 Oct, [facility] [place] [facility] [address] [id number] [place] [address]- 6461 Oct, [facility] [place] [facility] [address] [id number] [place] [address]- 6529 Oct, [facility] [address] [id number] [place] [address]- 6678 Sep, [facility] [place] [facility] [address] [id number] [place] [address]- 4321 Sep, [facility] [address] [id number] [place] [address]- 9285 Sep, [facility] [place] [facility] [address] [id number] [place] [address]- 8263 Sep, [facility] [address] [id number] [place] [address]- 2472 Aug, [facility] [address] [id number] [place] [address]- 3390 Aug, [facility] [address] [id number] [place] [address]- 6403 Jul, [facility] [address] [id number] [place] [address]- 2506 Jul, [facility] [address] [id number] [place] [address]- 5106 Jul, [facility] [address] [id number] [place] [address]- 6191 Jul, [facility] [place] [facility] [address] [id number] [place] [address]- 5485 Jul, [facility] [address] [id number] [place] [address]- 1064 Jun, [facility] [place] [facility] [address] [id number] [place] [address]- 6323 25 Jun, 2013 [facility] [place] [facility] [address] [id number] [place] [address]- 4931 19 Jun, 2013 [facility] [place] [facility] [address] [id number] [place] [address]- 7391 18 Jun, 2013 [facility] [address] [id number] [place] [address]- 8658 16 Jun, 2013 [facility] [place] [facility] [address] [id number] [place] [address]- 8687 12 Jun, 2013 [facility] [place] [facility] [address] [id number] [place] 8847 11 Jun, 2013 [facility] [place] [facility] [address] [id number] [place] [address]- 3302 30 May, 2013 [facility] [place] [facility] [address] [id number] [place] [address]- 5462 May, [facility] [place] [facility] [address] [id number] [place] [address]- 3083 Apr, [facility] [place] [facility] [address] [id number] [place] [address]- 3197 Apr, [facility] [place] [facility] [address] [id number] [place] [address]- 8078 Apr, [facility] [place] [facility] [address] [id number] [place] [address]- 2121 Mar, [facility] [place] [facility] [address] [id number], [place] [address]- 3561 Mar, [facility] [place] [facility] [address] [id number] [place] [address]- 3639 February, [facility] [place] [facility] [address] [id number], [place] [address]- 3141 February, [facility] [place] [facility] [address] [id number] [place] [address]- 0236 February, [facility] [place] [facility] [address] [id number] [place] [address]- 4926 February, [facility] [place] [facility] [address] [id number] [place] [address]- 1932 Jan, [facility] [place] [facility] [address] [id number], [place] [address]- 7677 17 Jan, 2013 [facility] [address] [id number] [place] [address]- 5482 16 Jan, 2013 [facility] [place] [facility] [address] [id number] [place] [address]- 6989 29 Dec, 2012 [facility] [address] [id number] [place] [address]- 2872 Dec, [facility] [place] [facility] [address] [id number] [place] [address]- 3962 Dec, [facility] [address] [id number] [place] [address]- 5097 Dec, [facility] [address] [id number] [place] [address]- 6503 Nov, [facility] [address] [id number] [place] [address]- 0777 Nov, [facility] [address] [id number] [place] [address]- 9639 Oct, [facility] [address] [id number] [place] [address]- 5464 Oct, [facility] [address] [facility] [id number] [place] [address]- 7939 Oct, [facility] [address] [id number] [place] [address]- 8802 Oct, [facility] [place] [facility] [address] [id number] [place] [address]- 3085 Aug, [facility] [place] [facility] [address] [id number] [place] [address]- 6316 Aug, [facility] [place] [facility] [address] [facility] [id number] [place] 0188 Jun, [facility] [address] [facility] [id number], [place] [address]- 8735 May, [facility] [place] [facility] [address] [id number] [place] [address]- 4933 May, [facility] [place] [facility] [address] [id number] [place] [address]- 5479 Apr, [facility] [place] [facility] [address] [id number] [place] [address] 2546 Apr, [facility] [place] [facility] [address] [id number] [place] [address]- 6239 Apr, [facility] [place] [facility] [address] [id number] [place] [address]- 9472 Mar, [facility] [place] [facility] [address] [id number] [place] [address]- 6428 Mar, [facility] [place] [facility] [address] [id number] [place] [address]- 7256 Mar, [facility] [place] [facility] [address] [id number] [place] [address]- 4525 Mar, [facility] [place] [facility] [address] [id number] [place] [address]- 2734 Mar, [facility] [place] [facility] [address] [id number] [place] [address]- 9273 February, [facility] [place] [facility] [address] [id number] [place] [address]- 5187 February, [facility] [place] [facility] [address] [id number] [place] [address]- 7742 February, [facility] [place] [facility] [address] [id number] [place] [address]- 0749 February, [facility] [place] [facility] [address] [id number] [place] [address]- 7829 February, [facility] [place] [facility] [address] [id number] [place] [address]- 1396 February, [facility] [place] [facility] [address] [id number] [place] [address]- 7497 February, [facility] [place] [facility] [address] [id number] [place] [address]- 8190 25 Jan, 2012 [facility] [place] [facility] [address] [id number] [place] [address]- 5706 18 Jan, 2012 [facility] [place] [facility] [address] [id number] [place] [address]- 8456 17 Jan, 2012 [facility] [place] [facility] [address] [id number] [place] [address]- 7907 13 Jan, 2012 [facility] [place] [facility] [address] [id number] [place] [address]- 6977 10 Jan, 2012 [facility] [place] [facility] [address] [id number] [place] [address]- 4520 04 Jan, 2012 [facility] [place] [facility] [address] [id number] [place] [address]- 7442 30 Dec, 2011 [facility] [place] [facility] [address] [id number] [place] [address]- 8894 24 Dec, 2011 [facility] [place] [facility] [address] [id number] [place] [address] 20 Dec, 2011 [facility] [place] [facility] [address] [id number] [place] [address] Dec, [facility] [place] [facility] [address] [id number] [place] [address] 06 Dec, 2011 [facility] [place] [facility] [address] [id number] [place] [address] 28 Nov, 2011 [facility] [place] [facility] [address] [id number] [place] [address] 27 Nov, 2011 [facility] [place] [facility] [address] [id number] [place] [address] 25 Nov, 2011 [facility] [place] [facility] [address] [id number] [place] [address] 14 Nov, 2011 [facility] [place] [facility] [address] [id number] [place] [address] 10 Nov, 2011 [facility] [address] [id number] [place] [address] Nov, [facility] [place] [facility] [address] [id number] [place] [address] Oct, [facility] [address] [id number] [place] [address] Oct, [facility] [place] [facility] [address] [id number] [place] [address] Oct, [facility] [place] [facility] [address] [id number] [place] [address] Oct, [facility] [address] [id number] [place] [address] Oct, [facility] [address] [id number] [place] [address] Sep, [facility] [address] [id number] [place] [address]99 Sep, [facility] [address] [id number] [place] [address] Sep, [facility] [address] [id number] [place] [address] 14 Sep, 2011 [facility] [place] [facility] [address] [id number] [place] [address] 14 Sep, 2011 [facility] [place] [facility] [address] [id number] [place] [address] 2541 13 Sep, 2011 [facility] [place] [facility] [address] [id number] [place] [address] 2546 12 Sep, 2011 [facility] [place] [facility] [address] [id number] [place] [address] 09 Sep, 2011 [facility] [place] [facility] [address] [id number] [place] [address] Sep, [facility] [place] [facility] [address] [id number] [place] [address] Aug, [facility] [place] [facility] [address] [id number] [place] [address] Aug, [facility] [place] [facility] [address] [id number] [place] [address]68 Aug, [facility] [place] [facility] [address] [id number] [place] [address] Aug, [facility] [place] [facility] [address] [id number] [place] [address] Aug, [facility] [place] [facility] [address] [id number] [place] [address] Aug, [facility] [place] [facility] [address] [id number] [place] [address] 1536 Aug, [facility] [place] [facility] [address] [id number] [address] Aug, [facility] [place] [facility] [address] [id number], [place] [address] Aug, [facility] [place] [facility] [address] [id number], [place] [address] Aug, [facility] [place] [facility] [address] [id number], [place] [address] Aug, [facility] [place] [facility] [address] [id number], [place] [address] Aug, [facility] [place] [facility] [address] [id number], [place] [address] Jul, [facility] [place] [facility] [address] [id number], [place] [address] Jul, [facility] [place] [facility] [address] [id number], [place] [address] Jul, [facility] [place] [facility] [id number], [place] [address] Jul, [facility] [id number], [place] [address] Jul, [facility] [id number], [place] [address] Jul, [facility] [id number], [place] [address] Jul, [facility] [id number], [place] [address] Jul, [facility] [id number] [place] [address] Jul, [facility] [id number], [place] [address] Jul, [facility] [id number] [place] [address]- [address] Nov, [facility] [id number], [place] [address] Aug, [facility] [id number], [place] [address] Aug, [facility] [id number], [place] [address] Aug, [facility] [id number], [place] [address] Aug, [facility] [id number], [place] [address] Jul, IMMUNIZATIONS No Known Immunizations SOCIAL HISTORY Never Assessed REASON FOR VISIT LIANA f/u ROSALIO PLAN OF CARE Activity Details Follow Up 1 Week Reason:LIANA f/u VITAL SIGNS Height 65.75 in 2018-03-10 Weight 191 lbs 2018-03-10 Heart Rate 86 bpm 2018-03-10 Respiratory Rate 20 2018-03-10 BMI 31.06 kg/m2 2018-03-10 Blood pressure systolic 108 mmHg 2018-03-10 Blood pressure diastolic 70 mmHg 2018-03-10 MEDICATIONS Medication Instructions Dosage Frequency Start Date End Date Duration Status Trileptal 300 MG Orally Twice a day 0.5 tablet 12h Active Hydrocodone-Acetaminophen 10-325 mg 1 Tablet by Oral route every 8 hours PRN pain Jul, Active Levothyroxine Sodium 75 MCG Orally Once a day 1 tablet on an empty stomach in the morning 24h Active Seroquel 200 MG Orally Once a day at bedtime for sleep 1 tablet Active Abilify 30 MG Orally Once a day 1 tablet 24h Active Topamax 100 mg Orally Twice a day 1.5 tablet 12h Active Intuniv 1 MG Orally 2 times a day 1 tablet 12h Active NovoLog Mix 70/30 (70-30) 100 UNIT/ML Subcutaneous 3 times a day 27 units 8h Active Levemir 100 UNIT/ML Subcutaneous at bedtime 70 units Active Metformin HCl 1000 MG Orally 2 times a day 1 tablet 12h Not-Taking Insulin Detemir 100 unit/mL (3 mL) Subcutaneous at bedtime 75 units by Subcutaneous route 1 time per day [facility] February, Active Ativan 1 MG Orally 2 times a day as needed 1 tablet Active Trintellix 20 mg orally Once a day 1 tablet 24h Active RESULTS No Results PROCEDURES Procedure Date Ordered Result Body Site [facility] ESTABLISHED PATIENT March 10, 2018 INSTRUCTIONS MEDICATIONS ADMINISTERED No Known Medications MEDICAL (GENERAL) HISTORY Type Description Date Medical History diabetes Medical History thyroid Surgical History appendix Surgical History gallbladder Surgical History eyes Surgical History hip Surgical History MRI on back and pelvis 06/08 Hospitalization History surgeries Hospitalization History [facility] Suicide attempt by hanging 06/14/2016 Hospitalization History [facility] 01/30/2018-02/10/2008 Hospitalization History lars gr- cutting/SI 05/04/18-05/09/18
--- OUTSIDE RECORDS SUMMARY | 2018-08-15 20:25 | XMS REPORT ---
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 01047055 Problem Schizoaffective disorder, depressive type F25.1 Active 88312697 Problem Borderline personality disorder F60.3 Active 74824947 Problem Attention deficit hyperactivity disorder (ADHD), inattentive type, 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 48636782 Problem Schizoaffective disorder, unspecified F25.9 Active 75109368 Problem High risk medication use Z79.899 Active 991003245 Problem Posttraumatic stress disorder F43.10 Active 04410546 Problem Obsessive-compulsive disorders 300.3 Active 165296802 Problem Generalized anxiety disorder 300.02 Active 59229405 Problem Attention deficit disorder 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 314.00 Active 05026035 Problem Bipolar disorder, unspecified 296.80 Active 55872833 Problem Posttraumatic stress disorder 309.81 Active 50678507 Problem Paranoid schizophrenia, unspecified condition 295.30 Active 34071307 ALLERGIES No Information ENCOUNTERS Encounter Location Date Diagnosis [facility] [address] [facility] [id number] [address] May, [facility] [address] [address] May, Paranoid schizophrenia F20.0 [facility] [address] [id number] [address] May, Paranoid schizophrenia F20.0 ; Posttraumatic stress disorder F43.10 ; Attention deficit hyperactivity disorder (ADHD), inattentive type, 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 and Borderline personality disorder F60.3 [facility] [address] [id number] [address] Apr, [facility] [address] [id number] [address] Apr, Paranoid schizophrenia F20.0 ; Posttraumatic stress disorder F43.10 ; Attention deficit hyperactivity disorder (ADHD), inattentive type, 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 and Borderline personality disorder F60.3 [facility] [address] [id number] [address] Apr, [facility] [address] [id number] [address] Apr, Schizoaffective disorder, depressive type F25.1 and Borderline personality disorder F60.3 [facility] [address] [address] Apr, Paranoid schizophrenia F20.0 ; Posttraumatic stress disorder F43.10 ; Attention deficit hyperactivity disorder (ADHD), inattentive type, 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 and Borderline personality disorder F60.3 [facility] [address] [id number] [address] Apr, [facility] [address] [id number] [address] Apr, Paranoid schizophrenia F20.0 ; Posttraumatic stress disorder F43.10 ; Attention deficit hyperactivity disorder (ADHD), inattentive type, 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 and Borderline personality disorder F60.3 [facility] [address] [facility] [id number], [place] [address] Apr, [facility] [address] [id number] [address] Mar, Paranoid schizophrenia F20.0 [facility] [address] [id number] [address] Mar, [facility] [address] [address] Mar, Paranoid schizophrenia F20.0 ; Posttraumatic stress disorder F43.10 ; Attention deficit hyperactivity disorder (ADHD), inattentive type, 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 and Borderline personality disorder F60.3 [facility] [address] [address] February, Paranoid schizophrenia F20.0 [facility] [address] [address] February, Paranoid schizophrenia F20.0 ; Posttraumatic stress disorder F43.10 ; Attention deficit hyperactivity disorder (ADHD), inattentive type, 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 and Borderline personality disorder F60.3 [facility] [address] [address] February, Paranoid schizophrenia F20.0 ; Posttraumatic stress disorder F43.10 ; Attention deficit hyperactivity disorder (ADHD), inattentive type, 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 and Borderline personality disorder F60.3 [facility] [address] [address] February, [place] [address], [place] [address] 6[address] February, Paranoid schizophrenia F20.0 [facility] [address] [address] 3181 February, Paranoid schizophrenia F20.0 [facility] [address] [id number] [address] 6[address] February, Paranoid schizophrenia F20.0 ; Posttraumatic stress disorder F43.10 ; Attention deficit hyperactivity disorder (ADHD), inattentive type, 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 and Borderline personality disorder F60.3 [facility] [address] [id number] [address] Jan, Paranoid schizophrenia F20.0 ; Posttraumatic stress disorder F43.10 ; Attention deficit hyperactivity disorder (ADHD), inattentive type, 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 and Borderline personality disorder F60.3 [facility] [address], [place] [address] Jan, Paranoid schizophrenia F20.0 [facility] [address] [address] Jan, Paranoid schizophrenia F20.0 [facility] [address] [place] [address]598 Jan, Paranoid schizophrenia F20.0 ; Posttraumatic stress disorder F43.10 ; Attention deficit hyperactivity disorder (ADHD), inattentive type, 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 and Borderline personality disorder F60.3 [facility] [address] [place] [address]- 1742 Dec, [facility] [id number] [place] [address]- 5258 Nov, Paranoid schizophrenia F20.0 ; Posttraumatic stress disorder F43.10 ; Attention deficit hyperactivity disorder (ADHD), inattentive type, 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 and Borderline personality disorder F60.3 [facility] [address] [address] Nov, [facility] [address] [address] 9[address] Oct, Paranoid schizophrenia F20.0 [facility] [address] [address] 3215 Oct, Paranoid schizophrenia F20.0 ; Posttraumatic stress disorder F43.10 ; Attention deficit hyperactivity disorder (ADHD), inattentive type, 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 ; Borderline personality disorder F60.3 and Other fpc ( 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 Z79.899 [facility] [address] [place] [address] Oct, [facility] [address] [address] Oct, [facility] [address] [id number] [address] 9[address] Sep, [facility] [address] [address]- 99[address] Sep, Paranoid schizophrenia F20.0 ; Posttraumatic stress disorder F43.10 ; Attention deficit hyperactivity disorder (ADHD), inattentive type, 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 and Borderline personality disorder F60.3 [facility] [address], [place] [address] 48[address] Sep, Paranoid schizophrenia F20.0 [facility] [address] [address] 4084 Aug, Paranoid schizophrenia F20.0 ; Posttraumatic stress disorder F43.10 ; Attention deficit hyperactivity disorder (ADHD), inattentive type, 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 and Borderline personality disorder F60.3 [facility] [address] [address]- 1598 Aug, Paranoid schizophrenia F20.0 ; Posttraumatic stress disorder F43.10 ; Attention deficit hyperactivity disorder (ADHD), inattentive type, 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 and Borderline personality disorder F60.3 [facility] [address], [place] [address]- 0[address] Aug, [facility] [address], [place] [address]- 7703 Jul, Paranoid schizophrenia F20.0 ; Posttraumatic stress disorder F43.10 ; Attention deficit hyperactivity disorder (ADHD), inattentive type, 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 and Borderline personality disorder F60.3 [facility] [address] [id number], [place] [address] 5837 Jul, Paranoid schizophrenia F20.0 [facility] [address] [address]- 9201 Jul, Paranoid schizophrenia F20.0 ; Posttraumatic stress disorder F43.10 ; Attention deficit hyperactivity disorder (ADHD), inattentive type, 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 and Borderline personality disorder F60.3 [facility] [address] [id number] [address] 3567 Jun, Paranoid schizophrenia F20.0 ; Posttraumatic stress disorder F43.10 ; Attention deficit hyperactivity disorder (ADHD), inattentive type, 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 and Borderline personality disorder F60.3 [facility] [address] [id number], [place] [address] 9014 May, Other fpc (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 Z79.899 [facility] [address] [id number], [place] [address] 6[address] May, [facility] [address] [facility] [id number] [address] 9148 May, [facility] [address] [id number], [place] [address]- 7858 May, Attention deficit hyperactivity disorder (ADHD), inattentive type, 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 [facility] [address], [place] [address]- 4138 May, [facility] [id number] [address]- 7[address] May, Attention deficit hyperactivity disorder (ADHD), inattentive type, 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 [facility] [address] [id number] [address]- 7153 May, Paranoid schizophrenia F20.0 ; Posttraumatic stress disorder F43.10 ; Attention deficit hyperactivity disorder (ADHD), inattentive type, 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 and 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 [facility] [address] [id number], [place] [address] 1675 Apr, Paranoid schizophrenia F20.0 [facility] [id number] [address]- 6649 Apr, Paranoid schizophrenia F20.0 ; Posttraumatic stress disorder F43.10 and Attention deficit hyperactivity disorder (ADHD), inattentive type, 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 [facility] [address] [address]- 6730 February, [facility] [address] [place] [address] 90231- 8289 February, Paranoid schizophrenia F20.0 ; Posttraumatic stress disorder F43.10 and Attention deficit hyperactivity disorder (ADHD), inattentive type, 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 [address] [place] [id number] Dec, Dental examination Z01.20 [facility] [address] [place] [address] [id number] Nov, Dental examination Z01.20 [facility] [id number] [place] [address] [id number] Nov, Dental examination Z01.20 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 [facility] [address] [address]- [address]23 Aug, Paranoid schizophrenia F20.0 ; Posttraumatic stress disorder F43.10 and Attention deficit hyperactivity disorder (ADHD), inattentive type, 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 [facility] [address] [place] [address]609 -7912 Aug, Strep throat J02.0 and Cough R05 [facility] [address] [place] [address] 28896- 7774 Aug, [facility] [id number] [place] [address] 15261- 2635 24 Jul, 2016 Paranoid schizophrenia F20.0 ; Posttraumatic stress disorder F43.10 and Attention deficit hyperactivity disorder (ADHD), inattentive type, 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 [address] [address] Jun, Dental examination Z01.20 [facility] [address] [place] [address] 61223- 7062 Jun, [facility] [address] [address]- 6868 May, Paranoid schizophrenia F20.0 [facility] [address] [address]- 0253 May, Paranoid schizophrenia F20.0 ; Posttraumatic stress disorder F43.10 and Attention deficit hyperactivity disorder (ADHD), inattentive type, 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 [facility] [address] [facility] [id number] [address] [address] May, [facility] [id number] [place] [address] 58268- 0872 May, Paranoid schizophrenia F20.0 [facility] [address] [facility] [id number] [place] [address] 62165- 9547 May, [facility] [id number] [place] [address] 39162- 0178 May, Paranoid schizophrenia F20.0 [facility] [id number] [address]- 8139 May, Schizoaffective disorder, unspecified F25.9 [facility] [id number] [address]- 5188 May, Schizoaffective disorder, unspecified F25.9 [facility] [id number] [address]- 2941 May, [facility] [id number] [address]- 8923 May, Paranoid schizophrenia F20.0 [facility] [id number] [address]- 6219 May, Paranoid schizophrenia F20.0 ; Posttraumatic stress disorder F43.10 and Attention deficit hyperactivity disorder (ADHD), inattentive type, 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 [facility] [address] [facility] [id number] [address] [address]20 Mar, [facility] [address] [facility] [id number], [place] [address]- 9502 Mar, Paranoid schizophrenia F20.0 ; Posttraumatic stress disorder F43.10 and Attention deficit hyperactivity disorder (ADHD), inattentive type, 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 [facility] [address] [id number] [address]- 4008 Mar, Paranoid schizophrenia F20.0 [facility] [address] [id number] [place] [address]- 7937 Mar, Paranoid schizophrenia F20.0 ; Attention deficit hyperactivity disorder (ADHD), inattentive type, 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 and Posttraumatic stress disorder F43.10 [facility] [address] [id number] [address]- 4435 Mar, [facility] [address] [id number] [place] [address]- 8683 Mar, Paranoid schizophrenia F20.0 ; Posttraumatic stress disorder F43.10 and Attention deficit hyperactivity disorder (ADHD), inattentive type, 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 [facility] [address] [facility] [id number], [place] [address]- 7103 February, [facility] [address] [id number] [address]- 1701 February, [facility] [address] [facility] [id number], [place] [address]- 3145 February, [facility] [address] [facility] [id number][place] [address]- 2225 February, [facility] [address] [facility] [id number], [place] [address]- 7938 Jan, Paranoid schizophrenia F20.0 [facility] [address] [id number] [address] Jan, Dental examination Z01.20 [facility] [address] [id number] [id number] Jan, Dental caries K02.9 [facility] [address] [id number][place] [address] Jan, Dental examination Z01.20 [facility] [address] [id number][place] [id number] Dec, Encounter for dental examination Z01.20 [facility] [address] [facility] [id number] [address]- 5538 Dec, Paranoid schizophrenia F20.[address] 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 [facility] [address] [address]- 5535 Nov, Schizoaffective disorder, unspecified F25.9 [facility] [address] [address]- 5395 Oct, Paranoid schizophrenia F20.0 [facility] [address] [id number] [address]- 3406 Oct, [facility] [address] [address]- 3952 Sep, Paranoid schizophrenia F20.0 ; Posttraumatic stress disorder F43.10 and Attention deficit hyperactivity disorder (ADHD), inattentive type, 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 [facility] [address] [address]- 8140 Sep, [facility] [address] [id number] [address]- 9480 Sep, Paranoid schizophrenia F20.0 ; Posttraumatic stress disorder F43.10 and Attention deficit hyperactivity disorder (ADHD), inattentive type, 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 [facility] [address] [id number] [address]- 3703 Aug, Paranoid schizophrenia F20.0 [facility] [address] [place] [address] 04934- 6695 Aug, [facility] [id number] [place] [address] 51039- 2697 Aug, Posttraumatic stress disorder F43.10 ; Paranoid schizophrenia F20.0 and Attention deficit hyperactivity disorder (ADHD), inattentive type, 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 [facility] [address] [place] [address] 52146- 9668 Jul, Bipolar disorder, unspecified F31.9 [facility] [id number] [place] [address] 96417- 1759 Jul, [facility] [id number] [place] [address] 48239- 2279 Jun, [facility] [id number] [place] [address] 44100- 8771 Jun, Schizoaffective disorder, chronic 295.72 ; Posttraumatic stress disorder 309.81 and Attention deficit disorder 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 314.00 [facility] [address] [place] [address] 52043- 3193 May, [facility] [address] [place] [address] 43519- 1203 May, [facility] [address] [place] [address] 63255- 4917 May, Schizoaffective disorder, chronic 295.72 ; Posttraumatic stress disorder 309.81 ; Attention deficit disorder 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 314.00 and Bipolar disorder, unspecified 296.80 [facility] [address] [place] [address] 40915- 4316 Apr, Schizoaffective disorder, chronic 295.72 [facility] [address] [place] [address] 51748- 8060 Apr, [facility] [address] [address]- 1008 Apr, Schizoaffective disorder, chronic 295.72 ; Posttraumatic stress disorder 309.81 and Attention deficit disorder 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 314.00 [facility] [address] [address]- 5197 Mar, Disorganized schizophrenia, 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 [facility] [address] [id number] [address]- 8225 Mar, [facility] [address] [address]- 4306 Mar, [facility] [address] [address]- 0400 Mar, [facility] [address] [address]- 8930 Mar, [facility] [address] [address]- 5320 February, Schizoaffective disorder, chronic 295.72 [facility] [address] [address]- 7254 February, [facility] [address] [address]- 7318 February, Attention deficit disorder 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 314.00 ; Posttraumatic stress disorder 309.81 and Schizoaffective disorder, chronic 295.72 [facility] [address] [address]- 3412 Jan, [facility] [address] [address]- 6929 Jan, [facility] [address] [address]- 5134 Jan, [facility] [address] [address]- 1980 Dec, [facility] [address] [id number] [address] Dec, [facility] [place] [facility] [address] [id number] [place] [address] Dec, [facility] [place] [facility] [address] [id number] [place] [address] 1124 Dec, [facility] [place] [facility] [address] [id number] [place] [address]- 2651 Dec, [facility] [place] [facility] [address] [id number] [place] [address]- 9723 Dec, [facility] [place] [facility] [address] [id number] [place] [address] 0957 Dec, [facility] [place] [facility] [address] [facility] [id number] [place] [address]- 6234 Dec, [facility] [place] [facility] [address] [facility] [id number] [place] [address]- 7629 Nov, [facility] [place] [facility] [address] [facility] [id number] [place] [address]- 6778 Nov, [facility] [place] [facility] [address] [facility] [id number] [place] [address] 9441 Nov, [facility] [place] [facility] [address] [facility] [id number] [place] [address]- 7750 Nov, 2014 [facility] [place] [facility] [address] [facility] [id number] [place] [address]- 9087 Nov, 2014 [facility] [place] [facility] [address] [facility] [id number] [place] [address]- 3407 Nov, 2014 [facility] [place] [facility] [address] [facility] [id number] [place] [address]- 5120 Nov, 2014 [facility] [place] [facility] [address] [facility] [id number] [place] [address]- 1803 Nov, 2014 [facility] [place] [facility] [address] [facility] [id number] [place] [address]- 9080 Nov, [facility] [place] [facility] [address] [id number] [place] [address]- 4100 Nov, [facility] [place] [facility] [address] [id number] [place] [address]- 2236 Oct, [facility] [place] [facility] [address] [id number] [place] [address]- 4656 Oct, [facility] [place] [facility] [address] [id number] [place] [address]- 3129 Oct, [facility] [place] [facility] [address] [id number] [place] [address]- 9701 Oct, [facility] [place] [facility] [address] [id number] [place] [address]- 6069 Oct, [facility] [place] [facility] [address] [id number] [place] [address]- 3896 Oct, [facility] [place] [facility] [address] [id number] [place] [address]- 5252 Oct, [facility] [place] [facility] [address] [id number] [place] [address]- 7595 Sep, [facility] [place] [facility] [address] [id number] [place] [address]- 0791 17 Sep, 2014 [facility] [place] [facility] [address] [id number] [place] [address]- 5072 15 Sep, 2014 [facility] [place] [facility] [address] [id number] [place] [address]- 2206 15 Sep, 2014 [facility] [place] [facility] [address] [id number] [place] [address]- 3559 20 Aug, 2014 [facility] [place] [facility] [address] [id number] [place] [address]- 7251 20 Aug, 2014 [facility] [place] [facility] [address] [id number] [place] [address]- 0574 14 Aug, 2014 [facility] [place] [facility] [address] [id number] [place] [address]- 5872 14 Aug, 2014 [facility] [place] [facility] [address] [id number] [place] [address]- 8857 Aug, [facility] [place] [facility] [address] [id number] [place] [address]- 3628 Aug, [facility] [place] [facility] [address] [id number] [place] [address]- 0058 Jul, [facility] [place] [facility] [address] [id number] [place] [address]- 4776 Jul, [facility] [place] [facility] [address] [id number] [place] [address]- 7096 Jul, [facility] [place] [facility] [address] [id number] [place] [address]- 0491 Jul, [facility] [place] [facility] [address] [id number] [place] [address]- 5120 Jul, [facility] [place] [facility] [address] [id number] [place] [address]- 2186 15 Jul, 2014 [facility] [place] [facility] [address] [id number] [place] [address]- 8455 27 Jun, 2014 [facility] [place] [facility] [address] [id number] [place] [address]- 9058 27 Jun, 2014 [facility] [place] [facility] [address] [id number] [place] [address]- 2541 26 Jun, 2013 [facility] [place] [facility] [address] [id number] [place] [address]- 2544 26 Jun, 2013 [facility] [place] [facility] [address] [id number] [place] [address]- 7377 26 Jun, 2013 [facility] [place] [facility] [address] [id number] [place] [address]- 7339 26 Jun, 2013 [facility] [place] [facility] [address] [id number] [place] [address]- 8136 Jun, [facility] [place] [facility] [address] [id number] [place] [address]- 0812 Jun, [facility] [place] [facility] [address] [id number] [place] [address]- 2744 Jun, [facility] [place] [facility] [address] [id number] [place] [address]- 6549 Jun, [facility] [place] [facility] [address] [id number] [place] [address]- 0933 Jun, [facility] [place] [facility] [address] [id number] [place] [address]- 8457 May, [facility] [place] [facility] [address] [id number] [place] [address]- 2395 May, [facility] [place] [facility] [address] [id number] [place] [address]- 5910 May, [facility] [place] [facility] [address] [id number] [place] [address]- 4448 May, [facility] [place] [facility] [address] [id number] [place] [address]- 1660 May, [facility] [place] [facility] [address] [id number] [place] [address]- 4568 May, [facility] [place] [facility] [address] [id number] [place] [address]- 6336 May, [facility] [place] [facility] [address] [id number] [place] [address]- 8918 May, [facility] [place] [facility] [address] [id number] [place] [address]- 3622 May, [facility] [place] [facility] [address] [id number] [place] [address]- 6737 May, [facility] [place] [facility] [address] [id number] [place] [address]- 1287 Apr, [facility] [place] [facility] [address] [id number] [address]- 8675 Apr, [facility] [place] [facility] [address] [id number] [place] [address]- 7594 Apr, [facility] [place] [facility] [address] [id number] [place] [address]- 4483 Apr, [facility] [place] [facility] [address] [id number] [place] [address]- 5086 Apr, [facility] [place] [facility] [address] [id number] [place] [address]- 7960 Apr, [facility] [place] [facility] [address] [id number] [place] [address]- 2939 Apr, [facility] [place] [facility] [address] [id number] [place] [address]- 5961 Apr, [facility] [place] [facility] [address] [id number] [place] [address]- 8611 Apr, [facility] [place] [facility] [address] [id number] [place] [address]- 9676 Apr, [facility] [place] [facility] [address] [id number] [place] [address]- 8006 Mar, [facility] [place] [facility] [address] [id number] [place] [address]- 0918 Mar, [facility] [place] [facility] [address] [id number] [place] [address]- 6732 Mar, [facility] [place] [facility] [address] [id number] [place] [address]- 2712 Mar, [facility] [place] [facility] [address] [id number] [place] [address]- 0210 Mar, [facility] [place] [facility] [address] [id number] [place] [address]- 3181 Mar, [facility] [place] [facility] [address] [id number] [place] [address]- 5916 Mar, [facility] [place] [facility] [address] [id number] [place] [address]- 2734 16 Mar, 2014 [facility] [place] [facility] [address] [id number] [place] [address]- 0543 Mar, [facility] [place] [facility] [address] [id number] [place] [address]- 9023 Mar, [facility] [place] [facility] [address] [id number] [place] [address]- 4630 Mar, [facility] [place] [facility] [address] [id number] [place] [address]- 2346 Mar, [facility] [place] [facility] [address] [id number] [place] [address]- 1071 Mar, [facility] [place] [facility] [address] [id number] [place] [address]- 7197 Mar, [facility] [place] [facility] [address] [id number] [place] [address]- 5762 Mar, [facility] [place] [facility] [address] [id number] [place] [address]- 4097 Mar, [facility] [place] [facility] [address] [id number] [place] [address]- 2536 Mar, [facility] [place] [facility] [address] [id number] [place] [address]- 5238 Mar, [facility] [place] [facility] [address] [id number] [place] [address]- 1173 Mar, [facility] [place] [facility] [address] [id number] [place] [address]- 4525 Mar, [facility] [place] [facility] [address] [id number] [place] [address]- 9483 February, [facility] [place] [facility] [address] [id number] [place] [address]- 6031 February, [facility] [place] [facility] [address] [id number] [place] [address]- 4810 February, [facility] [address] [id number] [place] [address]- 5131 February, [facility] [place] [facility] [address] [id number] [place] [address]- 7207 February, [facility] [place] [facility] [address] [id number] [place] [address]- 1858 February, [facility] [place] [facility] [address] [id number] [place] [address]- 4453 February, [facility] [place] [facility] [address] [id number] [place] [address]- 2859 February, [facility] [place] [facility] [address] [id number] [place] [address]- 4187 February, [facility] [place] [facility] [address] [id number] [place] [address]- 8673 February, [facility] [place] [facility] [address] [id number] [place] [address]- 0495 February, [facility] [place] [facility] [address] [id number] [place] [address]- 7654 February, [facility] [place] [facility] [address] [id number] [place] [address]- 1028 February, [facility] [place] [facility] [address] [id number] [place] [address]- 5842 February, [facility] [place] [facility] [address] [id number] [place] [address]- 7975 February, [facility] [place] [facility] [address] [id number] [place] [address]- 3676 February, [facility] [place] [facility] [address] [id number] [place] [address]- 3196 February, [facility] [place] [facility] [address] [id number] [place] [address]- 4654 February, [facility] [place] [facility] [address] [id number] [place] [address]- 9194 February, [facility] [place] [facility] [address] [id number] [place] [address]- 0629 February, [facility] [place] [facility] [address] [id number] [place] [address]- 6208 February, [facility] [place] [facility] [address] [id number] [place] [address]- 9009 Jan, [facility] [place] [facility] [address] [id number] [place] [address]- 8524 Jan, [facility] [place] [facility] [address] [id number] [place] [address]- 0377 Jan, [facility] [place] [facility] [address] [id number] [place] [address]- 1750 Jan, [facility] [place] [facility] [address] [id number] [place] [address]- 8266 Jan, [facility] [place] [facility] [address] [id number] [place] [address]- 4943 Jan, [facility] [place] [facility] [address] [id number] [place] [address]- 6662 Jan, [facility] [place] [facility] [address] [id number] [place] [address]- 2683 Jan, [facility] [place] [facility] [address] [id number] [place] [address]- 9513 Dec, [facility] [place] [facility] [address] [id number] [place] [address]- 9838 Dec, [facility] [place] [facility] [address] [id number] [place] [address]- 0823 Dec, [facility] [place] [facility] [address] [id number] [place] [address]- 9365 Dec, [facility] [place] [facility] [address] [id number] [place] [address]- 5954 Dec, [facility] [place] [facility] [address] [id number] [place] [address]- 0165 15 Dec, 2013 [facility] [place] [facility] [address] [id number] [place] [address]- 3542 15 Dec, 2013 [facility] [place] [facility] [address] [id number] [place] [address]- 9587 11 Dec, 2013 [facility] [place] [facility] [address] [id number] [place] [address]- 4779 10 Dec, 2013 [facility] [place] [facility] [address] [id number] [place] [address]- 8431 10 Dec, 2013 [facility] [place] [facility] [address] [id number] [place] [address]- 1111 18 Nov, 2013 [facility] [place] [facility] [address] [id number] [place] [address]- 3592 17 Nov, 2013 [facility] [place] [facility] [address] [id number] [place] [address]- 9884 Nov, [facility] [place] [facility] [address] [id number] [place] [address]- 0991 Nov, [facility] [place] [facility] [address] [id number] [place] [address]- 9660 Nov, [facility] [place] [facility] [address] [id number] [place] [address]- 7073 Oct, [facility] [place] [facility] [address] [id number] [place] [address]- 4829 Oct, [facility] [place] [facility] [address] [id number] [place] [address]- 0966 Oct, [facility] [place] [facility] [address] [id number] [place] [address]- 9818 Sep, [facility] [place] [facility] [address] [id number] [place] [address]- 8746 Sep, [facility] [place] [facility] [address] [id number] [place] [address]- 8518 Sep, [facility] [address] [id number] [place] [address]- 3540 Sep, [facility] [place] [facility] [address] [id number], [place] [address]- 7692 Aug, [facility] [place] [facility] [address] [id number] [place] [address]- 7573 Aug, [facility] [place] [facility] [address] [id number] [place] [address]- 3642 Jul, [facility] [place] [facility] [address] [id number] [place] [address]- 4266 Jul, [facility] [place] [facility] [address] [id number] [place] [address]- 5944 Jul, [facility] [address] [id number], [place] [address]- 3302 Jul, [facility] [place] [facility] [address] [id number], [place] [address]- 2332 Jul, [facility] [place] [facility] [address] [id number] [place] [address]- 3661 25 Jun, 2013 [facility] [place] [facility] [address] [id number] [place] [address]- 7038 25 Jun, 2013 [facility] [place] [facility] [address] [id number] [place] [address]- 0723 19 Sep, 2012 [facility] [place] [facility] [address] [id number], [place] [address]- 2918 18 Sep, 2012 [facility] [place] [facility] [address] [id number] [place] [address]- 6735 16 Sep, 2012 [facility] [place] [facility] [address] [id number], [place] [address]- 7970 12 Sep, 2012 [facility] [place] [facility] [address] [id number], [place] [address]- 2733 11 Sep, 2012 [facility] [place] [facility] [address] [id number] [place] [address]- 9725 May, [facility] [address] [id number] [place] [address]- 0548 May, [facility] [place] [facility] [address] [id number] [place] [address]- 0479 Apr, [facility] [place] [facility] [address] [id number] [place] [address]- 7329 Apr, [facility] [place] [facility] [address] [id number] [place] [address]- 4466 Apr, [facility] [place] [facility] [address] [id number] [place] [address]- 5411 Mar, [facility] [address] [id number] [place] [address]- 6890 Mar, [facility] [address] [id number] [place] [address]- 4542 February, [facility] [address] [id number] [place] [address]- 3902 February, [facility] [address] [id number] [place] [address]- 1264 February, [facility] [address] [id number] [place] [address]- 8501 February, [facility] [address] [id number] [place] [address]- 3132 Jan, [facility] [place] [facility] [address] [id number] [place] [address]- 3392 Jan, [facility] [place] [facility] [address] [id number] [place] [address]- 3254 Jan, [facility] [place] [facility] [address] [id number] [place] [address]- 1502 Dec, [facility] [place] [facility] [address] [id number] [place] [address]- 5968 Dec, [facility] [address] [id number] [place] [address]- 2778 Dec, [facility] [place] [facility] [address] [id number] [place] [address]- 9746 Dec, [facility] [place] [facility] [address] [id number] [place] [address]- 9755 Nov, [facility] [place] [facility] [address] [id number] [place] [address]- 7267 Nov, [facility] [place] [facility] [address] [id number] [place] [address]- 9552 Oct, [facility] [place] [facility] [address] [id number] [place] [address]- 0320 Oct, [facility] [place] [facility] [address] [id number] [place] [address]- 6913 Oct, [facility] [place] [facility] [address] [id number] [place] [address]- 2041 Oct, [facility] [place] [facility] [address] [id number] [place] [address]- 7922 Aug, [facility] [place] [facility] [address] [id number] [place] [address]- 0350 Aug, [facility] [place] [facility] [address] [id number] [place] [address]- 1403 Jun, [facility] [place] [facility] [address] [id number] [place] [address]- 4871 May, [facility] [place] [facility] [address] [id number] [place] [address]- 9599 May, [facility] [place] [facility] [address] [id number] [place] [address] Apr, [facility] [place] [facility] [address] [id number] [place] [address] Apr, [facility] [place] [facility] [address] [id number] [place] [address] 05 Apr, 2012 [facility] [address] [id number] [place] [address] Mar, [facility] [address] [id number] [place] [address] Mar, [facility] [address] [id number] [place] [address] Mar, [facility] [address] [id number] [place] [address] Mar, [facility] [address] [id number] [place] [address] Mar, [facility] [address] [id number] [place] [address] February, [facility] [address] [id number] [place] [address] February, [facility] [address] [id number] [place] [address] February, [facility] [address] [id number] [place] [address] February, [facility] [address] [id number] [place] [address] February, [facility] [address] [id number] [place] [address] February, [facility] [address] [id number] [place] [address] February, [facility] [place] [facility] [address] [id number] [place] [address] Jan, [facility] [place] [facility] [address] [id number] [place] [address] 18 Jan, 2012 [facility] [address] [id number] [place] [address] 17 Jan, 2012 [facility] [place] [facility] [address] [id number] [place] [address] 13 Jan, 2012 [facility] [place] [facility] [address] [id number] [place] [address]- 8586 10 Jan, 2012 [facility] [place] [facility] [address] [id number] [place] [address]- [address] 04 Jan, 2012 [facility] [place] [facility] [address] [id number] [place] [address] 30 Dec, 2011 [facility] [place] [facility] [address] [id number] [place] [address]- [address] 24 Dec, 2011 [facility] [place] [facility] [address] [id number] [place] [address]- [address] 20 Dec, 2011 [facility] [place] [facility] [address] [facility] [id number] [place] [address] Dec, [facility] [place] [facility] [address] [id number] [place] [address] Dec, [facility] [place] [facility] [address] [id number] [place] [address] 28 Nov, 2011 [facility] [place] [facility] [address] [facility] [id number] [place] [address] 27 Nov, 2011 [facility] [place] [facility] [address] [id number] [place] [address] Nov, [facility] [place] [facility] [address] [id number] [place] [address] 14 Nov, 2011 [facility] [place] [facility] [address] [id number] [place] [address] 10 Nov, 2011 [facility] [place] [facility] [address] [id number] [place] [address] Nov, [facility] [place] [facility] [address] [facility] [id number] [place] [address] Oct, [facility] [place] [facility] [address] [id number] [place] [address]70 10 Oct, 2011 [facility] [address] [id number] [place] [address] Oct, [facility] [address] [id number] [place] [address] Oct, [facility] [address] [id number] [place] [address] Oct, [facility] [address] [id number] [place] [address] Sep, [facility] [address] [id number] [place] [address] Sep, [facility] [address] [id number] [place] [address] Sep, [facility] [address] [id number] [place] [address]- [address]70 14 Sep, 2011 [facility] [address] [id number] [place] [address] 14 Sep, 2011 [facility] [place] [facility] [address] [id number] [place] [address] Sep, [facility] [address] [id number] [place] [address] Sep, [facility] [address] [id number] [place] [address] Sep, [facility] [place] [facility] [address] [id number] [place] [address] Sep, [facility] [place] [facility] [address] [id number] [place] [address]- 9421 30 Aug, 2011 [facility] [place] [facility] [address] [id number] [place] [address]- [address]38 Aug, [facility] [address] [id number] [place] [address]- 7569 Aug, [facility] [place] [facility] [address] [id number] [place] [address] Aug, [facility] [place] [facility] [address] [id number] [place] [address]- 8747 Aug, [facility] [place] [facility] [address] [id number] [place] [address]- [address]163 Aug, [facility] [place] [facility] [address] [id number] [place] [address]- 1448 Aug, [facility] [place] [facility] [address] [id number] [place] [address]- 2628 Aug, [facility] [place] [facility] [address] [id number] [place] [address]- 4089 Aug, [facility] [place] [facility] [address] [id number] [place] [address]- 9151 Aug, [facility] [place] [facility] [address] [id number] [place] [address]- 9802 Aug, [facility] [place] [facility] [address] [id number] [place] [address]- 4[address] Aug, [facility] [place] [facility] [address] [id number] [place] [address]- [address] Jul, [facility] [place] [facility] [address] [id number] [place] [address]- 64[address] Jul, [facility] [place] [facility] [address] [id number] [address] Jul, [facility] [place] [facility] [address] [id number] [place] [address]- 55[address] Jul, [facility] [place] [facility] [address] [id number] [place] [address]- 3326 Jul, [facility] [place] [facility] [address] [id number] [place] [address]- 6741 Jul, [facility] [place] [facility] [address] [id number] [address] Jul, [facility] [address] [id number] [address] [address] Jul, [facility] [id number] [address] Jul, [facility] [facility] [id number] [address] Jul, [facility] [id number] [address] Nov, [facility] [id number] [address] Aug, [facility] [id number] [address] Aug, [facility] [id number] [address] Aug, [facility] [id number] [address] Aug, [facility] [id number] [address] Jul, IMMUNIZATIONS No Known Immunizations SOCIAL HISTORY Never Assessed REASON FOR VISIT PLAN OF CARE VITAL SIGNS MEDICATIONS Unknown [...] Suicide attempt by hanging 06/14/2016 Hospitalization History [facility] 01/30/2018-02/10/2008 [facility]ization [facility] 05/04/18-05/09/18
--- OUTSIDE RECORDS SUMMARY | 2018-08-15 20:26 | XMS REPORT ---
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 99176257 Problem Schizoaffective disorder, depressive type F25.1 Active 24527082 Problem Borderline personality disorder F60.3 Active 08786244 Problem Attention deficit hyperactivity disorder (ADHD), inattentive type, 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 67212911 Problem Schizoaffective disorder, unspecified F25.9 Active 06497139 Problem High risk medication use Z79.899 Active 643600111 Problem Posttraumatic stress disorder F43.10 Active 42911861 Problem Obsessive-compulsive disorders 300.3 Active 831403340 Problem Generalized anxiety disorder 300.02 Active 89177772 Problem Attention deficit disorder 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 314.00 Active 63495667 Problem Bipolar disorder, unspecified 296.80 Active 55198431 Problem Posttraumatic stress disorder 309.81 Active 19632982 Problem Paranoid schizophrenia, unspecified condition 295.30 Active [id number] ALLERGIES No Information ENCOUNTERS Encounter Location Date Diagnosis [facility] [address] [facility] [id number] [address] May, [facility] [address], [place] [address] May, Paranoid schizophrenia F20.0 [facility] [id number], [place] [address] May, Paranoid schizophrenia F20.0 ; Posttraumatic stress disorder F43.10 ; Attention deficit hyperactivity disorder (ADHD), inattentive type, 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 and Borderline personality disorder F60.3 [facility] [address] [id number], [place] [address] Apr, [facility] [id number], [place] [address] Apr, Paranoid schizophrenia F20.0 ; Posttraumatic stress disorder F43.10 ; Attention deficit hyperactivity disorder (ADHD), inattentive type, 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 and Borderline personality disorder F60.3 [facility] [id number], [place] [address] Apr, [facility] [id number], [place] [address] Apr, Schizoaffective disorder, depressive type F25.1 and Borderline personality disorder F60.3 [facility] [address], [place] [address] Apr, Paranoid schizophrenia F20.0 ; Posttraumatic stress disorder F43.10 ; Attention deficit hyperactivity disorder (ADHD), inattentive type, 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 and Borderline personality disorder F60.3 [facility] [id number], [place] [address] 269[address] Apr, [facility] [id number], [place] [address] Apr, Paranoid schizophrenia F20.0 ; Posttraumatic stress disorder F43.10 ; Attention deficit hyperactivity disorder (ADHD), inattentive type, 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 and Borderline personality disorder F60.3 [facility] [address] [facility] [id number], [place] [address] Apr, [facility] [id number], [place] [address] Mar, Paranoid schizophrenia F20.0 [facility] [id number], [place] [address] Mar, [facility] [address], [place] [address] Mar, Paranoid schizophrenia F20.0 ; Posttraumatic stress disorder F43.10 ; Attention deficit hyperactivity disorder (ADHD), inattentive type, 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 and Borderline personality disorder F60.3 [facility] [address], [place] [address] February, Paranoid schizophrenia F20.0 [facility] [address], [place] [address] 8[address] February, Paranoid schizophrenia F20.0 ; Posttraumatic stress disorder F43.10 ; Attention deficit hyperactivity disorder (ADHD), inattentive type, 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 and Borderline personality disorder F60.3 [facility] [address], [place] [address] February, Paranoid schizophrenia F20.0 ; Posttraumatic stress disorder F43.10 ; Attention deficit hyperactivity disorder (ADHD), inattentive type, 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 and Borderline personality disorder F60.3 [facility] [address], [place] [address] February, [place] [address], [place] [address] February, Paranoid schizophrenia F20.0 [facility] [address], [place] [address] 07[address] February, Paranoid schizophrenia F20.0 [facility] [id number], [place] [address] 2685 February, Paranoid schizophrenia F20.0 ; Posttraumatic stress disorder F43.10 ; Attention deficit hyperactivity disorder (ADHD), inattentive type, 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 and Borderline personality disorder F60.3 [facility] [id number], [place] [address] 225[address] Jan, Paranoid schizophrenia F20.0 ; Posttraumatic stress disorder F43.10 ; Attention deficit hyperactivity disorder (ADHD), inattentive type, 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 and Borderline personality disorder F60.3 [facility] [address], [place] [address] 240[address] Jan, Paranoid schizophrenia F20.0 [facility] [address], [place] [address] 1385 Jan, Paranoid schizophrenia F20.0 [facility] [id number] [place] [address]87- 2144 Jan, Paranoid schizophrenia F20.0 ; Posttraumatic stress disorder F43.10 ; Attention deficit hyperactivity disorder (ADHD), inattentive type, 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 and Borderline personality disorder F60.3 [facility] [id number] [place] [address] 17091- 0880 Dec, [facility] [id number] [place] [address] 12789- 5790 Nov, Paranoid schizophrenia F20.0 ; Posttraumatic stress disorder F43.10 ; Attention deficit hyperactivity disorder (ADHD), inattentive type, 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 and Borderline personality disorder F60.3 [facility] [address], [place] [address] Nov, [facility] [address], [place] [address] 0[address] Oct, Paranoid schizophrenia F20.0 [facility] [address], [place] [address] 87[address] Oct, Paranoid schizophrenia F20.0 ; Posttraumatic stress disorder F43.10 ; Attention deficit hyperactivity disorder (ADHD), inattentive type, 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 ; Borderline personality disorder F60.3 [place] [facility] 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 Z79.899 [facility] [id number] [place] [address]- 9125 Oct, [facility] [address], [place] [address] 7[address] Oct, [facility] [address] [id number], [place] [address] Sep, [facility] [address], [place] [address] 118[address] Sep, Paranoid schizophrenia F20.0 ; Posttraumatic stress disorder F43.10 ; Attention deficit hyperactivity disorder (ADHD), inattentive type, 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 and Borderline personality disorder F60.3 [facility] [address], [place] [address] Sep, Paranoid schizophrenia F20.0 [facility] [address], [place] [address] Aug, Paranoid schizophrenia F20.0 ; Posttraumatic stress disorder F43.10 ; Attention deficit hyperactivity disorder (ADHD), inattentive type, 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 and Borderline personality disorder F60.3 [facility] [address], [place] [address] 1338 Aug, Paranoid schizophrenia F20.0 ; Posttraumatic stress disorder F43.10 ; Attention deficit hyperactivity disorder (ADHD), inattentive type, 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 and Borderline personality disorder F60.3 [facility] [address], [place] [address] Aug, [facility] [address], [place] [address] 7[address] Jul, Paranoid schizophrenia F20.0 ; Posttraumatic stress disorder F43.10 ; Attention deficit hyperactivity disorder (ADHD), inattentive type, 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 and Borderline personality disorder F60.3 [facility] [id number], [place] [address] Jul, Paranoid schizophrenia F20.0 [facility] [address], [place] [address] Jul, Paranoid schizophrenia F20.0 ; Posttraumatic stress disorder F43.10 ; Attention deficit hyperactivity disorder (ADHD), inattentive type, 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 and Borderline personality disorder F60.3 [facility] [id number], [place] [address] Jun, Paranoid schizophrenia F20.0 ; Posttraumatic stress disorder F43.10 ; Attention deficit hyperactivity disorder (ADHD), inattentive type, 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 and Borderline personality disorder F60.3 [facility] [id number], [place] [address] May, [place] [facility] 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 Z79.899 [facility] [id number], [place] [address] May, [facility] [address] [facility] [id number] [place] [address] May, [facility] [id number], [place] [address]- 9058 May, Attention deficit hyperactivity disorder (ADHD), inattentive type, 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 [facility] [address], [place] [address]- 6691 May, [facility] [id number], [place] [address]- 6978 May, Attention deficit hyperactivity disorder (ADHD), inattentive type, 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 [facility] [id number], [place] [address]- 4[address] May, Paranoid schizophrenia F20.0 ; Posttraumatic stress disorder F43.10 ; Attention deficit hyperactivity disorder (ADHD), inattentive type, 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 and 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 [facility] [id number], [place] [address]- 0035 Apr, Paranoid schizophrenia F20.0 [facility] [id number], [place] [address]- 0430 Apr, Paranoid schizophrenia F20.0 ; Posttraumatic stress disorder F43.10 and Attention deficit hyperactivity disorder (ADHD), inattentive type, 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 [facility] [address], [place] [address]- 2[address] February, [facility] [id number] [place] [address] 77495- 3143 February, Paranoid schizophrenia F20.0 ; Posttraumatic stress disorder F43.10 and Attention deficit hyperactivity disorder (ADHD), inattentive type, 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 [facility] [address], [place] [address]- 0907 February, Paranoid schizophrenia F20.0 ; Posttraumatic stress disorder F43.10 and Attention deficit hyperactivity disorder (ADHD), inattentive type, 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 [facility] [address] [place] [address] 73491- 0628 Jan, Paranoid schizophrenia F20.0 ; Posttraumatic stress disorder F43.10 and Attention deficit hyperactivity disorder (ADHD), inattentive type, 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 [facility] [address] [place] [address] [phone] Dec, Dental examination Z01.20 [facility] [address] [place] [address] [phone] Nov, Dental examination Z01.20 [facility] [id number] [place] [address] [id number] Nov, Dental examination Z01.20 [facility] [address] [place] [address] [phone] Nov, Dental caries K02.9 [facility] [address], [place] [address]- 29[address] 13 Nov, 2016 High risk medication use Z79.899 [facility] [id number] [place] [address] 81167- 1344 Nov, Paranoid schizophrenia F20.0 ; Posttraumatic stress disorder F43.10 ; Attention deficit hyperactivity disorder (ADHD), inattentive type, 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 and Borderline personality disorder in adult F60.3 [facility] [address] [place] [address] [phone] Oct, Dental caries K02.9 [facility] [address] [place] [address] 92537- 3819 Sep, Paranoid schizophrenia F20.0 ; Posttraumatic stress disorder F43.10 and Attention deficit hyperactivity disorder (ADHD), inattentive type, 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 [facility] [address], [place] [address]- 2281 Aug, Paranoid schizophrenia F20.0 ; Posttraumatic stress disorder F43.10 and Attention deficit hyperactivity disorder (ADHD), inattentive type, 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 [facility] [id number] [place] [address] 75391 -7803 Aug, Strep throat J02.0 and Cough R05 [facility] [id number] [place] [address] 14336- 8794 Aug, [facility] [id number] [place] [address] 98912- 0316 24 Jul, 2016 Paranoid schizophrenia F20.0 ; Posttraumatic stress disorder F43.10 and Attention deficit hyperactivity disorder (ADHD), inattentive type, 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 [facility] [id number] [place] [address] 90174- 6090 Jul, [facility] [id number] [place] [address] 77863- 3603 28 Jun, 2016 Paranoid schizophrenia F20.0 ; Posttraumatic stress disorder F43.10 and Attention deficit hyperactivity disorder (ADHD), inattentive type, 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 [facility] [address] [id number] Jun, Dental examination Z01.20 [facility] [id number] [place] [address] 69721- 2599 Jun, [facility] [address], [place] [address]- 4905 May, Paranoid schizophrenia F20.0 [facility] [address], [place] [address]- 8750 May, Paranoid schizophrenia F20.0 ; Posttraumatic stress disorder F43.10 and Attention deficit hyperactivity disorder (ADHD), inattentive type, 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 [facility] [address] [facility] [id number] [address] [address] May, [facility] [id number] [place] [address] 97597- 8492 May, Paranoid schizophrenia F20.0 [facility] [address] [facility] [id number] [place] [address] 02397- 5749 May, [facility] [id number] [place] [address] 66803- 1327 May, Paranoid schizophrenia F20.0 [facility] [id number], [place] [address]- 5441 May, Schizoaffective disorder, unspecified F25.9 [facility] [id number], [place] [address]- 4631 May, Schizoaffective disorder, unspecified F25.9 [facility] [id number], [place] [address]- 2677 May, [facility] [id number], [place] [address]- 6004 May, Paranoid schizophrenia F20.0 [facility] [id number], [place] [address]- 4427 May, Paranoid schizophrenia F20.0 ; Posttraumatic stress disorder F43.10 and Attention deficit hyperactivity disorder (ADHD), inattentive type, 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 [facility] [address] [facility] [id number] [address] 6786 Mar, [facility] [address] [facility] [id number], [place] [address]- 9431 Mar, Paranoid schizophrenia F20.0 ; Posttraumatic stress disorder F43.10 and Attention deficit hyperactivity disorder (ADHD), inattentive type, 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 [facility] [address] [id number], [place] [address]- 7266 Mar, Paranoid schizophrenia F20.0 [facility] [address] [id number] [place] [address]- 9242 Mar, Paranoid schizophrenia F20.0 ; Attention deficit hyperactivity disorder (ADHD), inattentive type, 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 and Posttraumatic stress disorder F43.10 [facility] [address] [id number], [place] [address]- 0542 Mar, [facility] [address] [id number] [place] [address]- 2664 Mar, Paranoid schizophrenia F20.0 ; Posttraumatic stress disorder F43.10 and Attention deficit hyperactivity disorder (ADHD), inattentive type, 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 [facility] [address] [facility] [id number], [place] [address]- 3160 February, [facility] [address] [id number], [place] [address]- 9790 February, [facility] [address] [facility] [id number], [place] [address]- 4372 February, [facility] [address] [facility] [id number], [place] [address]- 6557 February, [facility] [address] [facility] [id number], [place] [address]- 1743 Jan, Paranoid schizophrenia F20.0 [facility] [address] [id number] [id number] Jan, Dental examination Z01.20 [facility] [address] [id number][place] [id number] Jan, Dental caries K02.9 [facility] [address] [id number][place] [id number] Jan, Dental examination Z01.20 [facility] [address] [id number][place] [address] Dec, Encounter for dental examination Z01.20 [facility] [address] [facility] [id number], [place] [address]- 4129 Dec, Paranoid schizophrenia F20.0 [facility] [id number] [id number] Dec, Dental examination Z01.20 [facility] [id number], [place] [address]- 3215 Dec, [facility] [id number], [place] [address]- 1487 Dec, Paranoid schizophrenia F20.0 ; Posttraumatic stress disorder F43.10 and Attention deficit hyperactivity disorder (ADHD), inattentive type, 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 [facility] [address], [place] [address]- 4318 Nov, Schizoaffective disorder, unspecified F25.9 [facility] [address], [place] [address]- 7750 Oct, Paranoid schizophrenia F20.0 [facility] [id number], [place] [address]- 9996 Oct, [facility] [address], [place] [address]- 9710 Sep, Paranoid schizophrenia F20.0 ; Posttraumatic stress disorder F43.10 and Attention deficit hyperactivity disorder (ADHD), inattentive type, 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 [facility] [address], [place] [address]- 5198 Sep, [facility] [id number], [place] [address]- 7800 Sep, Paranoid schizophrenia F20.0 ; Posttraumatic stress disorder F43.10 and Attention deficit hyperactivity disorder (ADHD), inattentive type, 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 [facility] [id number], [place] [address]- 2412 Aug, Paranoid schizophrenia F20.0 [facility] [id number] [place] [address] 90980- 3495 Aug, [facility] [id number] [place] [address] 69311- 1736 Aug, Posttraumatic stress disorder F43.10 ; Paranoid schizophrenia F20.0 and Attention deficit hyperactivity disorder (ADHD), inattentive type, 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 [facility] [id number] [place] [address] 16626- 0364 Jul, Bipolar disorder, unspecified F31.9 [facility] [id number] [place] [address] 18516- 2310 Jul, [facility] [id number] [place] [address] 72936- 7290 Jun, [facility] [id number] [place] [address] 47904- 4383 Jun, Schizoaffective disorder, chronic 295.72 ; Posttraumatic stress disorder 309.81 and Attention deficit disorder 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 314.00 [facility] [id number] [place] [address] 70693- 2484 May, [facility] [id number] [place] [address] 85886- 9543 May, [facility] [id number] [place] [address] 73402- 7408 May, Schizoaffective disorder, chronic 295.72 ; Posttraumatic stress disorder 309.81 ; Attention deficit disorder 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 314.00 and Bipolar disorder, unspecified 296.80 [facility] [id number] [place] [address] 69576- 5552 Apr, Schizoaffective disorder, chronic 295.72 [facility] [id number] [place] [address] 71472- 1579 Apr, [facility] [address], [place] [address]- 4132 Apr, Schizoaffective disorder, chronic 295.72 ; Posttraumatic stress disorder 309.81 and Attention deficit disorder 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 314.00 [facility] [address], [place] [address]- 7596 Mar, Disorganized schizophrenia, 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 [facility] [address] [id number], [place] [address]- 8459 Mar, [facility] [address], [place] [address]- 0663 Mar, [facility] [address], [place] [address]- 8164 Mar, [facility] [address], [place] [address]- 2294 Mar, [facility] [address], [place] [address]- 8767 February, Schizoaffective disorder, chronic 295.72 [facility] [address], [place] [address]- 2955 February, [facility] [address], [place] [address]- 5767 February, Attention deficit disorder 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 314.00 ; Posttraumatic stress disorder 309.81 and Schizoaffective disorder, chronic 295.72 [facility] [id number] [address] Jan, [facility] [id number] [address] 69[address] Jan, [facility] [id number] [address] 4[address] Jan, [facility] [id number] [address] Dec, [facility] [id number] [place] [address] Dec, [facility] [place] [facility] [address] [id number] [place] [address]277 Dec, [facility] [place] [facility] [address] [id number] [place] [address]- 3191 Dec, [facility] [place] [facility] [address] [id number] [place] [address]- 5883 Dec, [facility] [place] [facility] [address] [id number] [place] [address]- 8190 Dec, [facility] [place] [facility] [address] [id number] [place] [address]- 2117 Dec, [facility] [place] [facility] [address] [facility] [id number] [place] [address]- 4636 Dec, [facility] [place] [facility] [address] [facility] [id number] [place] [address]- 6636 Nov, [facility] [place] [facility] [address] [facility] [id number] [place] [address]- 3715 Nov, [facility] [place] [facility] [address] [facility] [id number] [place] [address]- 0728 Nov, [facility] [place] [facility] [address] [facility] [id number] [place] [address]- 5886 Nov, 2014 [facility] [place] [facility] [address] [facility] [id number] [place] [address]- 7846 Nov, 2014 [facility] [place] [facility] [address] [facility] [id number] [place] [address]- 6824 Nov, 2014 [facility] [place] [facility] [address] [facility] [id number] [place] [address]- 6072 Nov, 2014 [facility] [place] [facility] [address] [facility] [id number] [place] [address]- 4691 Nov, 2014 [facility] [place] [facility] [address] [facility] [id number] [place] [address]- 2053 Nov, [facility] [place] [facility] [address] [id number] [place] [address]- 0330 Nov, [facility] [place] [facility] [address] [id number] [place] [address]- 9699 Oct, [facility] [place] [facility] [address] [id number] [place] [address]- 1879 Oct, [facility] [place] [facility] [address] [id number] [place] [address]- 7551 Oct, [facility] [place] [facility] [address] [id number] [place] [address]- 6243 Oct, [facility] [place] [facility] [address] [id number] [place] [address]- 4909 Oct, [facility] [place] [facility] [address] [id number] [place] [address]- 3184 Oct, [facility] [place] [facility] [address] [id number] [place] [address]- 6921 Oct, [facility] [place] [facility] [address] [id number] [place] [address]- 4498 Sep, [facility] [place] [facility] [address] [id number] [place] [address]- 3759 17 Sep, 2014 [facility] [place] [facility] [address] [id number] [place] [address]- 0272 15 Sep, 2014 [facility] [place] [facility] [address] [id number] [place] [address]- 7330 15 Sep, 2014 [facility] [place] [facility] [address] [id number] [place] [address]- 4622 20 Aug, 2014 [facility] [place] [facility] [address] [id number] [place] [address]- 9629 20 Aug, 2014 [facility] [place] [facility] [address] [id number] [place] [address]- 1204 14 Aug, 2014 [facility] [place] [facility] [address] [id number] [place] [address]- 9328 14 Aug, 2014 [facility] [place] [facility] [address] [id number] [place] [address]- 0938 Aug, [facility] [place] [facility] [address] [id number] [place] [address]- 1742 Aug, [facility] [place] [facility] [address] [id number] [place] [address]- 5311 Jul, [facility] [place] [facility] [address] [id number] [place] [address]- 5578 Jul, [facility] [place] [facility] [address] [id number] [place] [address]- 0337 Jul, [facility] [place] [facility] [address] [id number] [place] [address]- 6397 Jul, [facility] [place] [facility] [address] [id number] [place] [address]- 9897 Jul, [facility] [place] [facility] [address] [id number] [place] [address]- 6835 15 Jul, 2014 [facility] [place] [facility] [address] [id number] [place] [address]- 2351 27 Jun, 2014 [facility] [place] [facility] [address] [id number] [place] [address]- 5958 27 Jun, 2014 [facility] [place] [facility] [address] [id number] [place] [address]- 2541 26 Jun, 2013 [facility] [place] [facility] [address] [id number] [place] [address]- 2544 26 Jun, 2013 [facility] [place] [facility] [address] [id number] [place] [address]- 4515 26 Jun, 2013 [facility] [place] [facility] [address] [id number] [place] [address]- 0802 26 Jun, 2013 [facility] [place] [facility] [address] [id number] [place] [address]- 8734 Jun, [facility] [place] [facility] [address] [id number] [place] [address]- 5126 Jun, [facility] [place] [facility] [address] [id number] [place] [address]- 6409 Jun, [facility] [place] [facility] [address] [id number] [place] [address]- 4681 Jun, [facility] [place] [facility] [address] [id number] [place] [address]- 5473 Jun, [facility] [place] [facility] [address] [id number] [place] [address]- 0701 May, [facility] [place] [facility] [address] [id number] [place] [address]- 4109 May, [facility] [place] [facility] [address] [id number] [place] [address]- 8246 May, [facility] [place] [facility] [address] [id number] [place] [address]- 5880 May, [facility] [place] [facility] [address] [id number] [place] [address]- 7673 May, [facility] [place] [facility] [address] [id number] [place] [address]- 1309 May, [facility] [place] [facility] [address] [id number] [place] [address]- 2015 May, [facility] [place] [facility] [address] [id number] [place] [address]- 1755 May, [facility] [place] [facility] [address] [id number] [place] [address]- 2340 May, [facility] [place] [facility] [address] [id number] [place] [address]- 6339 May, [facility] [place] [facility] [address] [id number] [place] [address]- 2114 Apr, [facility] [place] [facility] [address] [id number] [address]- 8311 Apr, [facility] [place] [facility] [address] [id number] [place] [address]- 6459 Apr, [facility] [place] [facility] [address] [id number] [place] [address]- 3868 Apr, [facility] [place] [facility] [address] [id number] [place] [address]- 7648 Apr, [facility] [place] [facility] [address] [id number] [place] [address]- 5684 Apr, [facility] [place] [facility] [address] [id number] [place] [address]- 8386 Apr, [facility] [place] [facility] [address] [id number] [place] [address]- 2779 Apr, [facility] [place] [facility] [address] [id number] [place] [address]- 4523 Apr, [facility] [place] [facility] [address] [id number] [place] [address]- 4327 Apr, [facility] [place] [facility] [address] [id number] [place] [address]- 7224 Mar, [facility] [place] [facility] [address] [id number] [place] [address]- 7915 Mar, [facility] [place] [facility] [address] [id number] [place] [address]- 9243 Mar, [facility] [place] [facility] [address] [id number] [place] [address]- 5520 Mar, [facility] [place] [facility] [address] [id number] [place] [address]- 2213 Mar, [facility] [place] [facility] [address] [id number] [place] [address]- 2513 Mar, [facility] [place] [facility] [address] [id number] [place] [address]- 0347 Mar, [facility] [place] [facility] [address] [id number] [place] [address]- 3654 16 Mar, 2014 [facility] [place] [facility] [address] [id number] [place] [address]- 9401 Mar, [facility] [place] [facility] [address] [id number] [place] [address]- 0312 Mar, [facility] [place] [facility] [address] [id number] [place] [address]- 3369 Mar, [facility] [place] [facility] [address] [id number] [place] [address]- 7253 Mar, [facility] [place] [facility] [address] [id number] [place] [address]- 4999 Mar, [facility] [place] [facility] [address] [id number] [place] [address]- 9885 Mar, [facility] [place] [facility] [address] [id number] [place] [address]- 5363 Mar, [facility] [place] [facility] [address] [id number] [place] [address]- 0767 Mar, [facility] [place] [facility] [address] [id number] [place] [address]- 7197 Mar, [facility] [place] [facility] [address] [id number] [place] [address]- 4352 Mar, [facility] [place] [facility] [address] [id number] [place] [address]- 7324 Mar, [facility] [place] [facility] [address] [id number] [place] [address]- 3520 Mar, [facility] [place] [facility] [address] [id number] [place] [address]- 7968 February, [facility] [place] [facility] [address] [id number] [place] [address]- 6512 February, [facility] [place] [facility] [address] [id number] [place] [address]- 7903 February, [facility] [address] [id number] [place] [address]- 3693 February, [facility] [place] [facility] [address] [id number] [place] [address]- 1329 February, [facility] [place] [facility] [address] [id number] [place] [address]- 8583 February, [facility] [place] [facility] [address] [id number] [place] [address]- 6891 February, [facility] [place] [facility] [address] [id number] [place] [address]- 5151 February, [facility] [place] [facility] [address] [id number] [place] [address]- 8451 February, [facility] [place] [facility] [address] [id number] [place] [address]- 5580 February, [facility] [place] [facility] [address] [id number] [place] [address]- 8007 February, [facility] [place] [facility] [address] [id number] [place] [address]- 1490 February, [facility] [place] [facility] [address] [id number] [place] [address]- 5595 February, [facility] [place] [facility] [address] [id number] [place] [address]- 7911 February, [facility] [place] [facility] [address] [id number] [place] [address]- 8903 February, [facility] [place] [facility] [address] [id number] [place] [address]- 0974 February, [facility] [place] [facility] [address] [id number] [place] [address]- 6655 February, [facility] [place] [facility] [address] [id number] [place] [address]- 8863 February, [facility] [place] [facility] [address] [id number] [place] [address]- 3688 February, [facility] [place] [facility] [address] [id number] [place] [address]- 6460 February, [facility] [place] [facility] [address] [id number] [place] [address]- 7896 February, [facility] [place] [facility] [address] [id number] [place] [address]- 5669 Jan, [facility] [place] [facility] [address] [id number] [place] [address]- 7714 Jan, [facility] [place] [facility] [address] [id number] [place] [address]- 5089 Jan, [facility] [place] [facility] [address] [id number] [place] [address]- 1927 Jan, [facility] [place] [facility] [address] [id number] [place] [address]- 9330 Jan, [facility] [place] [facility] [address] [id number] [place] [address]- 0773 Jan, [facility] [place] [facility] [address] [id number] [place] [address]- 9858 Jan, [facility] [place] [facility] [address] [id number] [place] [address]- 6412 Jan, [facility] [place] [facility] [address] [id number] [place] [address]- 8670 Dec, [facility] [place] [facility] [address] [id number] [place] [address]- 1212 Dec, [facility] [place] [facility] [address] [id number] [place] [address]- 9273 Dec, [facility] [place] [facility] [address] [id number] [place] [address]- 5023 Dec, [facility] [place] [facility] [address] [id number] [place] [address]- 0338 Dec, [facility] [place] [facility] [address] [id number] [place] [address]- 6861 15 Dec, 2013 [facility] [place] [facility] [address] [id number] [place] [address]- 8523 15 Dec, 2013 [facility] [place] [facility] [address] [id number] [place] [address]- 0225 11 Dec, 2013 [facility] [place] [facility] [address] [id number] [place] [address]- 7383 10 Dec, 2013 [facility] [place] [facility] [address] [id number] [place] [address]- 1501 10 Dec, 2013 [facility] [place] [facility] [address] [id number] [place] [address]- 8402 18 Nov, 2013 [facility] [place] [facility] [address] [id number] [place] [address]- 8149 17 Nov, 2013 [facility] [place] [facility] [address] [id number] [place] [address]- 3381 Nov, [facility] [place] [facility] [address] [id number] [place] [address]- 8137 Nov, [facility] [place] [facility] [address] [id number] [place] [address]- 8150 Nov, [facility] [place] [facility] [address] [id number] [place] [address]- 1651 Oct, [facility] [place] [facility] [address] [id number] [place] [address]- 2564 Oct, [facility] [place] [facility] [address] [id number] [place] [address]- 9773 Oct, [facility] [place] [facility] [address] [id number] [place] [address]- 6740 Sep, [facility] [place] [facility] [address] [id number] [place] [address]- 7088 Sep, [facility] [place] [facility] [address] [id number] [place] [address]- 1644 Sep, [facility] [address] [id number] [place] [address]- 8697 Sep, [facility] [place] [facility] [address] [id number], [place] [address]- 2305 Aug, [facility] [place] [facility] [address] [id number] [place] [address]- 1762 Aug, [facility] [place] [facility] [address] [id number] [place] [address]- 3835 Jul, [facility] [place] [facility] [address] [id number] [place] [address]- 0854 Jul, [facility] [place] [facility] [address] [id number] [place] [address]- 7152 Jul, [facility] [address] [id number], [place] [address]- 8388 Jul, [facility] [place] [facility] [address] [id number], [place] [address]- 6360 Jul, [facility] [place] [facility] [address] [id number] [place] [address]- 2159 25 Jun, 2013 [facility] [place] [facility] [address] [id number] [place] [address]- 6887 25 Jun, 2013 [facility] [place] [facility] [address] [id number] [place] [address]- 1445 19 Sep, 2012 [facility] [place] [facility] [address] [id number], [place] [address]- 6633 18 Sep, 2012 [facility] [place] [facility] [address] [id number] [place] [address]- 4210 16 Sep, 2012 [facility] [place] [facility] [address] [id number], [place] [address]- 0391 12 Sep, 2012 [facility] [place] [facility] [address] [id number], [place] [address]- 1086 11 Sep, 2012 [facility] [place] [facility] [address] [id number] [place] [address]- 4836 May, [facility] [address] [id number] [place] [address]- 1853 May, [facility] [place] [facility] [address] [id number] [place] [address]- 0101 Apr, [facility] [place] [facility] [address] [id number] [place] [address]- 8702 Apr, [facility] [place] [facility] [address] [id number] [place] [address]- 6628 Apr, [facility] [place] [facility] [address] [id number] [place] [address]- 7180 Mar, [facility] [address] [id number] [place] [address]- 3047 Mar, [facility] [address] [id number] [place] [address]- 1513 February, [facility] [address] [id number] [place] [address]- 5225 February, [facility] [address] [id number] [place] [address]- 6238 February, [facility] [address] [id number] [place] [address]- 1017 February, [facility] [address] [id number] [place] [address]- 5349 Jan, [facility] [place] [facility] [address] [id number] [place] [address]- 4236 Jan, [facility] [place] [facility] [address] [id number] [place] [address]- 8698 Jan, [facility] [place] [facility] [address] [id number] [place] [address]- 6513 Dec, [facility] [place] [facility] [address] [id number] [place] [address]- 6223 Dec, [facility] [address] [id number] [place] [address]- 8835 Dec, [facility] [place] [facility] [address] [id number] [place] [address]- 9411 Dec, [facility] [place] [facility] [address] [id number] [place] [address]- 3950 Nov, [facility] [place] [facility] [address] [id number] [place] [address]- 5711 Nov, [facility] [place] [facility] [address] [id number] [place] [address]- 9350 Oct, [facility] [place] [facility] [address] [id number] [place] [address]- 1039 Oct, [facility] [place] [facility] [address] [id number] [place] [address]- 4845 Oct, [facility] [place] [facility] [address] [id number] [place] [address]- 2800 Oct, [facility] [place] [facility] [address] [id number] [place] [address]- 3892 Aug, [facility] [place] [facility] [address] [id number] [place] [address]- 8696 Aug, [facility] [place] [facility] [address] [id number] [place] [address]- 5353 Jun, [facility] [place] [facility] [address] [id number] [place] [address]- 5489 May, [facility] [place] [facility] [address] [id number] [place] [address]- 3317 May, [facility] [place] [facility] [address] [id number] [place] [address]- 0752 Apr, [facility] [place] [facility] [address] [id number] [place] [address]- 2546 Apr, [facility] [place] [facility] [address] [id number] [place] [address]- 0522 05 Apr, 2012 [facility] [address] [id number] [place] [address]- 3051 Mar, [facility] [address] [id number] [place] [address]- 6674 Mar, [facility] [address] [id number] [place] [address]- 7587 Mar, [facility] [address] [id number] [place] [address]- 0199 Mar, [facility] [address] [id number] [place] [address]- 6143 Mar, [facility] [address] [id number] [place] [address] February, [facility] [address] [id number] [place] [address] February, [facility] [address] [id number] [place] [address] February, [facility] [address] [id number] [place] [address] February, [facility] [address] [id number] [place] [address] February, [facility] [address] [id number] [place] [address] February, [facility] [address] [id number] [place] [address] February, [facility] [place] [facility] [address] [id number] [place] [address] Jan, [facility] [place] [facility] [address] [id number] [place] [address] 18 Jan, 2012 [facility] [address] [id number] [place] [address] 17 Jan, 2012 [facility] [place] [facility] [address] [id number] [place] [address] 13 Jan, 2012 [facility] [place] [facility] [address] [id number] [place] [address]196 10 Jan, 2012 [facility] [place] [facility] [address] [id number] [place] [address] 04 Jan, 2012 [facility] [place] [facility] [address] [id number] [place] [address]36 30 Dec, 2011 [facility] [place] [facility] [address] [id number] [place] [address] 24 Dec, 2011 [facility] [place] [facility] [address] [id number] [place] [address] 20 Dec, 2011 [facility] [place] [facility] [address] [facility] [id number] [place] [address] Dec, [facility] [place] [facility] [address] [id number] [place] [address] Dec, [facility] [place] [facility] [address] [id number] [place] [address] 28 Nov, 2011 [facility] [place] [facility] [address] [facility] [id number] [place] [address] 27 Nov, 2011 [facility] [place] [facility] [address] [id number] [place] [address] 39[address] Nov, [facility] [place] [facility] [address] [id number] [place] [address] 14 Nov, 2011 [facility] [place] [facility] [address] [id number] [place] [address] 4095 10 Nov, 2011 [facility] [place] [facility] [address] [id number] [place] [address] Nov, [facility] [place] [facility] [address] [facility] [id number] [place] [address] Oct, [facility] [place] [facility] [address] [id number] [place] [address] 10 Oct, 2011 [facility] [address] [id number] [place] [address] Oct, [facility] [address] [id number] [place] [address] Oct, [facility] [address] [id number] [place] [address] Oct, [facility] [address] [id number] [place] [address] Sep, [facility] [address] [id number] [place] [address] Sep, [facility] [address] [id number] [place] [address] Sep, [facility] [address] [id number] [place] [address] 14 Sep, 2011 [facility] [address] [id number] [place] [address]40 14 Sep, 2011 [facility] [place] [facility] [address] [id number] [place] [address] Sep, [facility] [address] [id number] [place] [address] Sep, [facility] [address] [id number] [place] [address] Sep, [facility] [place] [facility] [address] [id number] [place] [address] Sep, [facility] [place] [facility] [address] [id number] [place] [address]60 30 Aug, 2011 [facility] [place] [facility] [address] [id number] [place] [address]- [address] Aug, [facility] [address] [id number] [place] [address] Aug, [facility] [place] [facility] [address] [id number] [place] [address] 2728 Aug, [facility] [place] [facility] [address] [id number] [place] [address]- 6677 Aug, [facility] [place] [facility] [address] [id number] [place] [address] Aug, [facility] [place] [facility] [address] [id number] [place] [address]- 7974 Aug, [facility] [place] [facility] [address] [id number] [place] [address] 244[address] Aug, [facility] [place] [facility] [address] [id number] [place] [address]861 Aug, [facility] [place] [facility] [address] [id number] [place] [address]- 8249 Aug, [facility] [place] [facility] [address] [id number] [place] [address]- 8848 Aug, [facility] [place] [facility] [address] [id number] [place] [address]- [address] Aug, [facility] [place] [facility] [address] [id number] [place] [address]289 Jul, [facility] [place] [facility] [address] [id number] [place] [address]- 1745 Jul, [facility] [place] [facility] [address] [id number], [place] [address] Jul, [facility] [place] [facility] [address] [id number] [place] [address]- 1465 Jul, [facility] [place] [facility] [address] [id number] [place] [address] 7018 Jul, [facility] [place] [facility] [address] [id number] [place] [address]- 6[address] Jul, [facility] [place] [facility] [address] [id number], [place] [address] Jul, [facility] [id number] [address] Jul, [facility] [address] [facility] [id number], [place] [address] Jul, [facility] [address] [id number] [address] Jul, [facility] [id number] [address] Nov, [facility] [id number] [address] Aug, [facility] [id number], [place] [address] Aug, [facility] [id number], [place] [address] Aug, [facility] [id number], [place] [address] Aug, [facility] [id number], [place] [address] Jul, IMMUNIZATIONS No Known Immunizations SOCIAL HISTORY Never Assessed REASON FOR VISIT Refill request PLAN OF CARE VITAL SIGNS MEDICATIONS Medication Instructions Dosage Frequency Start Date End Date Duration Status Trintellix 20 mg orally Once a day 1 tablet 24h 30 days Active RESULTS No Results PROCEDURES No Known procedures INSTRUCTIONS MEDICATIONS ADMINISTERED No Known Medications MEDICAL (GENERAL) HISTORY Type Description Date Medical History diabetes Medical History thyroid Surgical History appendix Surgical History gallbladder Surgical History eyes Surgical History hip Surgical History MRI on back and pelvis 06/08 Hospitalization History surgeries Hospitalization History [facility] Suicide attempt by hanging 06/14/2016 Hospitalization History [facility] 01/30/2018-02/10/2008 Hospitalization History [facility] 05/04/18-05/09/18
--- OUTSIDE RECORDS SUMMARY | 2018-08-15 20:27 | XMS REPORT ---
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 42808759 Problem Schizoaffective disorder, depressive type F25.1 Active 74504386 Problem Borderline personality disorder F60.3 Active 22859673 Problem Attention deficit hyperactivity disorder (ADHD), inattentive type, 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 93257520 Problem Schizoaffective disorder, unspecified F25.9 Active 29118927 Problem High risk medication use Z79.899 Active 900411873 Problem Posttraumatic stress disorder F43.10 Active 01716046 Problem Obsessive-compulsive disorders 300.3 Active 125824677 Problem Generalized anxiety disorder 300.02 Active 90526268 Problem Attention deficit disorder 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 314.00 Active 32344430 Problem Bipolar disorder, unspecified 296.80 Active 45726006 Problem Posttraumatic stress disorder 309.81 Active 79521405 Problem Paranoid schizophrenia, unspecified condition 295.30 Active 24698707 ALLERGIES Substance Reaction Event Type Date Status [...] February, Active ENCOUNTERS Encounter Location Date Diagnosis [facility] [place] [address] [facility] [id number] [address] May, [facility] [place] [address] [facility] [id number], [place] [address] May, Paranoid schizophrenia F20.0 [facility] [place] [id number] [address] May, Paranoid schizophrenia F20.0 ; Posttraumatic stress disorder F43.10 ; Attention deficit hyperactivity disorder (ADHD), inattentive type, 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 and Borderline personality disorder F60.3 [facility] [place] [address] [facility] [id number], [place] [address] Apr, [facility] [place] [address] [id number], [place] [address] Apr, Paranoid schizophrenia F20.0 ; Posttraumatic stress disorder F43.10 ; Attention deficit hyperactivity disorder (ADHD), inattentive type, 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 and Borderline personality disorder F60.3 [facility] [place] [address] [id number] [address] Apr, [facility] [place] [address] [id number], [place] [address] Apr, Schizoaffective disorder, depressive type F25.1 and Borderline personality disorder F60.3 [facility] [place] [address] [id number], [place] [address] Apr, Paranoid schizophrenia F20.0 ; Posttraumatic stress disorder F43.10 ; Attention deficit hyperactivity disorder (ADHD), inattentive type, 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 and Borderline personality disorder F60.3 [facility] [place] [address] [facility] [id number], [place] [address] Apr, [facility] [place] [address] [facility] [id number], [place] [address] Apr, Paranoid schizophrenia F20.0 ; Posttraumatic stress disorder F43.10 ; Attention deficit hyperactivity disorder (ADHD), inattentive type, 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 and Borderline personality disorder F60.3 [facility] [place] [address]00565[address], [place] [address] Apr, [facility] [place] [id number], [place] [address] Mar, Paranoid schizophrenia F20.0 [facility] [place] [address], [place] [address] Mar, [facility] [place] [address] [id number], [place] [address] Mar, Paranoid schizophrenia F20.0 ; Posttraumatic stress disorder F43.10 ; Attention deficit hyperactivity disorder (ADHD), inattentive type, 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 and Borderline personality disorder F60.3 [facility] [place] [address], [place] [address] February, Paranoid schizophrenia F20.0 [facility] [place] [address]65[address], [place] [address] February, Paranoid schizophrenia F20.0 ; Posttraumatic stress disorder F43.10 ; Attention deficit hyperactivity disorder (ADHD), inattentive type, 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 and Borderline personality disorder F60.3 [facility] [place] [address], [place] [address] February, Paranoid schizophrenia F20.0 ; Posttraumatic stress disorder F43.10 ; Attention deficit hyperactivity disorder (ADHD), inattentive type, 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 and Borderline personality disorder F60.3 [facility] [place] [address], [place] [address] February, [facility] [place] [address], [place] [address] February, Paranoid schizophrenia F20.0 [facility] [place] [address], [place] [address] February, Paranoid schizophrenia F20.0 [facility] [place] [address]00565[address], [place] [address] February, Paranoid schizophrenia F20.0 ; Posttraumatic stress disorder F43.10 ; Attention deficit hyperactivity disorder (ADHD), inattentive type, 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 and Borderline personality disorder F60.3 [facility] [place] [address], [place] [address] Jan, Paranoid schizophrenia F20.0 ; Posttraumatic stress disorder F43.10 ; Attention deficit hyperactivity disorder (ADHD), inattentive type, 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 and Borderline personality disorder F60.3 [facility] [place] [address], [place] [address] Jan, Paranoid schizophrenia F20.0 [facility] [place] [address], [place] [address] Jan, Paranoid schizophrenia F20.0 [facility] [place] [address], [place] [address] Jan, Paranoid schizophrenia F20.0 ; Posttraumatic stress disorder F43.10 ; Attention deficit hyperactivity disorder (ADHD), inattentive type, 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 and Borderline personality disorder F60.3 [facility] [place] [address]005[address], [place] [address] Dec, [facility] [place] [address] [id number], [place] [address] Nov, Paranoid schizophrenia F20.0 ; Posttraumatic stress disorder F43.10 ; Attention deficit hyperactivity disorder (ADHD), inattentive type, 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 and Borderline personality disorder F60.3 [facility] [place] [address], [place] [address] Nov, [facility] [place] [address] [id number], [place] [address] Oct, Paranoid schizophrenia F20.0 [facility] [place] [address] [id number], [place] [address] Oct, Paranoid schizophrenia F20.0 ; Posttraumatic stress disorder F43.10 ; Attention deficit hyperactivity disorder (ADHD), inattentive type, 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 ; Borderline personality disorder F60.3 and 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 dispatcher ( 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 Z79.899 [facility] [place] [address], [place] [address] Oct, [facility] [place] [address], [place] [address] Oct, [facility] [place] [address], [place] [address] Sep, [facility] [place] [address], [place] [address] Sep, Paranoid schizophrenia F20.0 ; Posttraumatic stress disorder F43.10 ; Attention deficit hyperactivity disorder (ADHD), inattentive type, 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 and Borderline personality disorder F60.3 [facility] [place] [address], [place] [address] Sep, Paranoid schizophrenia F20.0 [facility] [place] [address], [place] [address]- [address] Aug, Paranoid schizophrenia F20.0 ; Posttraumatic stress disorder F43.10 ; Attention deficit hyperactivity disorder (ADHD), inattentive type, 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 and Borderline personality disorder F60.3 [facility] [place] [address], [place] [address] Aug, Paranoid schizophrenia F20.0 ; Posttraumatic stress disorder F43.10 ; Attention deficit hyperactivity disorder (ADHD), inattentive type, 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 and Borderline personality disorder F60.3 [facility] [place] [address], [place] [address] Aug, [facility] [place] [address], [place] [address] Jul, Paranoid schizophrenia F20.0 ; Posttraumatic stress disorder F43.10 ; Attention deficit hyperactivity disorder (ADHD), inattentive type, 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 and Borderline personality disorder F60.3 [facility] [place] [address], [place] [address] Jul, Paranoid schizophrenia F20.0 [facility] [place] [address], [place] [address] Jul, Paranoid schizophrenia F20.0 ; Posttraumatic stress disorder F43.10 ; Attention deficit hyperactivity disorder (ADHD), inattentive type, 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 and Borderline personality disorder F60.3 [facility] [place] [address] [address] Jun, Paranoid schizophrenia F20.0 ; Posttraumatic stress disorder F43.10 ; Attention deficit hyperactivity disorder (ADHD), inattentive type, 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 and Borderline personality disorder F60.3 [facility] [place] [address], [place] [address] May, Other detention (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 Z79.899 [facility] [place] [address], [place] [address] May, [facility] [place] [address], [place] [address] 94[address] May, [facility] [place] [address], [place] [address]- [address] May, Attention deficit hyperactivity disorder (ADHD), inattentive type, 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 [facility] [place] [address], [place] [address]- [address] May, [facility] [place] [address] [address] May, Attention deficit hyperactivity disorder (ADHD), inattentive type, 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 [facility] [place] [address], [place] [address]- [address] May, Paranoid schizophrenia F20.0 ; Posttraumatic stress disorder F43.10 ; Attention deficit hyperactivity disorder (ADHD), inattentive type, 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 and Other detention (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 Z79.899 [facility] [place] [address] [id number], [place] [address] Apr, Paranoid schizophrenia F20.0 [facility] [place] [address], [place] [address]- [address] Apr, Paranoid schizophrenia F20.0 ; Posttraumatic stress disorder F43.10 and Attention deficit hyperactivity disorder (ADHD), inattentive type, 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 [facility] [place] [address], [place] [address]- [address] February, [facility] [place] [address], [place] [address]- [address] February, Paranoid schizophrenia F20.0 ; Posttraumatic stress disorder F43.10 and Attention deficit hyperactivity disorder (ADHD), inattentive type, 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 [facility] [place] [address], [place] [address]- [address] February, Paranoid schizophrenia F20.0 ; Posttraumatic stress disorder F43.10 and Attention deficit hyperactivity disorder (ADHD), inattentive type, 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 [facility] [place] [address], [place] [address]- [address] Jan, Paranoid schizophrenia F20.0 ; Posttraumatic stress disorder F43.10 and Attention deficit hyperactivity disorder (ADHD), inattentive type, 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 [facility] [address] [address] Dec, Dental examination Z01.20 [facility] [address] [id number] [address] Nov, Dental examination Z01.20 [facility] [address] [id number] [address] Nov, Dental examination Z01.20 [facility] [address] [address] Nov, Dental caries K02.9 [facility] [place] [address], [place] [address] Nov, High risk medication use Z79.899 [facility] [place] [address], [place] [address]- [address] Nov, Paranoid schizophrenia F20.0 ; Posttraumatic stress disorder F43.10 ; Attention deficit hyperactivity disorder (ADHD), inattentive type, 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 and Borderline personality disorder in adult F60.3 [facility] [address] [address] Oct, Dental caries K02.9 [facility] [place] [id number] [place] [address] Sep, Paranoid schizophrenia F20.0 ; Posttraumatic stress disorder F43.10 and Attention deficit hyperactivity disorder (ADHD), inattentive type, 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 [facility] [place] [address], [place] [address]- [address] Aug, Paranoid schizophrenia F20.0 ; Posttraumatic stress disorder F43.10 and Attention deficit hyperactivity disorder (ADHD), inattentive type, 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 [facility] [id number], [place] [address] Aug, Strep throat J02.0 and Cough R05 [facility] [place] [id number] [place] [address]- [address]144 Aug, [facility] [place] [address], [place] [address]- [address] Jul, Paranoid schizophrenia F20.0 ; Posttraumatic stress disorder F43.10 and Attention deficit hyperactivity disorder (ADHD), inattentive type, 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 [facility] [place] [address] [facility] [id number], [place] [address] Jul, [facility] [place] [id number] [place] [address] 6929 Jun, Paranoid schizophrenia F20.0 ; Posttraumatic stress disorder F43.10 and Attention deficit hyperactivity disorder (ADHD), inattentive type, 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 [facility] [address] [address] Jun, Dental examination Z01.20 [facility] [place] [address] [facility] [id number], [place] [address] Jun, [facility] [place] [id number], [place] [address]- 2446 May, Paranoid schizophrenia F20.0 [facility] [place] [id number] [place] [address]46- 3332 May, Paranoid schizophrenia F20.0 ; Posttraumatic stress disorder F43.10 and Attention deficit hyperactivity disorder (ADHD), inattentive type, 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 [facility] [place] [id number] [place] [address]- 2320 May, [facility] [place] [id number] [place] [address]- 9439 May, Paranoid schizophrenia F20.0 [facility] [place] [id number] [place] [address]- 8545 May, [facility] [place] [id number], [place] [address]- 5325 May, Paranoid schizophrenia F20.0 [facility] [place] [id number], [place] [address]- [address] May, Schizoaffective disorder, unspecified F25.9 [facility] [place] [address], [place] [address]- 7782 May, Schizoaffective disorder, unspecified F25.9 [facility] [place] [address] [facility] [id number], [place] [address]- [address] May, [facility] [place] [id number] [place] [address]- 8058 May, Paranoid schizophrenia F20.0 [facility] [place] [address] [facility] [id number], [place] [address]- [address] May, Paranoid schizophrenia F20.0 ; Posttraumatic stress disorder F43.10 and Attention deficit hyperactivity disorder (ADHD), inattentive type, 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 [facility] [place] [address] [id number] [place] [address] Mar, [facility] [address] [facility] [id number] [place] [address]- 3145 Mar, Paranoid schizophrenia F20.0 ; Posttraumatic stress disorder F43.10 and Attention deficit hyperactivity disorder (ADHD), inattentive type, 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 [facility] [place] [address] [facility] [id number] [place] [address]- 5703 Mar, Paranoid schizophrenia F20.0 [facility] [place] [address] [facility] [id number] [place] [address]- 1199 Mar, Paranoid schizophrenia F20.0 ; Attention deficit hyperactivity disorder (ADHD), inattentive type, 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 and Posttraumatic stress disorder F43.10 [facility] [place] [address] [facility] [id number] [place] [address]- 0197 Mar, [facility] [address] [facility] [id number] [place] [address]- 4769 Mar, Paranoid schizophrenia F20.0 ; Posttraumatic stress disorder F43.10 and Attention deficit hyperactivity disorder (ADHD), inattentive type, 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 [facility] [place] [address] [facility] [id number] [place] [address]- [address] February, [facility] [place] [address] [facility] [id number], [place] [address] 6664 February, [facility] [address] [facility] [id number] [place] [address]- 1796 February, [facility] [place] [address] [facility] [id number] [place] [address]- 9810 February, [facility] [place] [address] [facility] [id number] [place] [address]- 9107 Jan, Paranoid schizophrenia F20.0 [facility] [address] [id number] [id number] Jan, Dental examination Z01.20 [facility] [address] [id number][place] [address] Jan, Dental caries K02.9 [facility] [address] [id number][place] [address] Jan, Dental examination Z01.20 [facility] [address] [id number][place] [address] Dec, Encounter for dental examination Z01.20 [facility] [place] [address] [facility] [id number] [place] [address]- 0215 Dec, Paranoid schizophrenia F20.0 [facility] [address] [id number][place] [address] Dec, Dental examination Z01.20 [facility] [place] [address], [place] [address] Dec, [facility] [place] [id number] [place] [id number] Dec, Paranoid schizophrenia F20.0 ; Posttraumatic stress disorder F43.10 and Attention deficit hyperactivity disorder (ADHD), inattentive type, 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 [facility] [place] [id number] [address] Nov, Schizoaffective disorder, unspecified F25.9 [facility] [place] [id number] [address] Oct, Paranoid schizophrenia F20.0 [facility] [place] [id number] [address] Oct, [facility] [place] [id number] [place] [id number] Sep, Paranoid schizophrenia F20.0 ; Posttraumatic stress disorder F43.10 and Attention deficit hyperactivity disorder (ADHD), inattentive type, 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 [facility] [place] [id number] [address] Sep, [facility] [place] [id number] [address] Sep, Paranoid schizophrenia F20.0 ; Posttraumatic stress disorder F43.10 and Attention deficit hyperactivity disorder (ADHD), inattentive type, 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 [facility] [place] [id number] [address] Aug, Paranoid schizophrenia F20.0 [facility] [place] [address] [id number] [address] Aug, [facility] [place] [id number] [place] [address] Aug, Posttraumatic stress disorder F43.10 ; Paranoid schizophrenia F20.0 and Attention deficit hyperactivity disorder (ADHD), inattentive type, 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 [facility] [place] [id number] [address] Jul, Bipolar disorder, unspecified F31.9 [facility] [place] [address] [address] Jul, [facility] [place] [id number] [place] [address] 79[address] Jun, [facility] [place] [address] [address] Jun, Schizoaffective disorder, chronic 295.72 ; Posttraumatic stress disorder 309.81 and Attention deficit disorder 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 314.00 [facility] [place] [address] [address] May, [facility] [place] [id number] [id number] May, [facility] [place] [id number] [address] May, Schizoaffective disorder, chronic 295.72 ; Posttraumatic stress disorder 309.81 ; Attention deficit disorder 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 314.00 and Bipolar disorder, unspecified 296.80 [facility] [place] [address] [address] Apr, Schizoaffective disorder, chronic 295.72 [facility] [place] [address] [address] Apr, [facility] [place] [id number] [place] [address]- [address] Apr, Schizoaffective disorder, chronic 295.72 ; Posttraumatic stress disorder 309.81 and Attention deficit disorder 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 314.00 [facility] [place] [id number] [place] [address]- 8470 Mar, Disorganized schizophrenia, 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 [facility] [place] [address] [address] Mar, [facility] [place] [id number] [place] [address]- 4288 Mar, [facility] [place] [address] [address] Mar, [facility] [place] [id number], [place] [address] Mar, [facility] [place] [address], [place] [address] February, Schizoaffective disorder, chronic 295.72 [facility] [place] [address], [place] [address] February, [facility] [place] [address] [address] February, Attention deficit disorder 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 314.00 ; Posttraumatic stress disorder 309.81 and Schizoaffective disorder, chronic 295.72 [facility] [place] [address], [place] [address] Jan, [facility] [place] [facility] [address] [id number] [place] [address]- 1388 14 Jan, 2015 [facility] [place] [facility] [address] [id number] [place] [address]- 9107 Jan, [facility] [place] [facility] [address] [id number] [place] [address]- 8903 25 Dec, 2014 [facility] [place] [facility] [address] [id number] [place] [address]- 2622 Dec, [facility] [place] [facility] [address] [id number] [place] [address]- 5527 Dec, [facility] [place] [facility] [address] [id number] [place] [address]- 6663 Dec, [facility] [place] [facility] [address] [facility] [id number] [place] [address]- 8060 Dec, [facility] [place] [facility] [address] [id number] [place] [address]- 9721 Dec, [facility] [place] [facility] [address] [id number] [place] [address]- 8593 Dec, [facility] [place] [facility] [address] [id number] [place] [address]- 8998 Dec, [facility] [place] [facility] [address] [id number] [place] [address]- 9122 Nov, [facility] [place] [facility] [address] [id number] [place] [address]- 9967 Nov, [facility] [place] [facility] [address] [id number] [place] [address]- 3963 Nov, [facility] [place] [facility] [address] [id number] [place] [address]- 1393 Nov, [facility] [place] [facility] [address] [id number] [place] [address]- 4646 Nov, [facility] [place] [facility] [address] [id number] [place] [address]- 9814 Nov, [facility] [place] [facility] [address] [id number] [place] [address]- 1669 Nov, [facility] [place] [facility] [address] [id number] [place] [address] Nov, [facility] [place] [facility] [address] [id number] [place] [address]- 6506 Nov, [facility] [place] [facility] [address] [id number] [place] [address]- 3909 Nov, [facility] [place] [facility] [address] [id number] [place] [address]- 6321 Oct, [facility] [place] [facility] [address] [id number] [place] [address]- 5291 Oct, [facility] [place] [facility] [address] [id number] [place] [address]- 3853 Oct, [facility] [place] [facility] [address] [id number] [place] [address]- 4333 Oct, [facility] [place] [facility] [address] [id number] [place] [address]- 1684 Oct, [facility] [place] [facility] [address] [facility] [id number] [place] [address]- 1163 Oct, [facility] [place] [facility] [address] [id number] [place] [address]- 1083 Oct, [facility] [place] [facility] [address] [id number] [address]- 116[address] Sep, [facility] [place] [facility] [address] [id number] [place] [address]- 6082 Sep, [facility] [place] [facility] [address] [id number] [place] [address]- 2786 Sep, [facility] [place] [facility] [address] [id number] [place] [address]- 9669 Sep, [facility] [place] [facility] [address] [id number] [place] [address]- 9675 Aug, [facility] [place] [facility] [address] [id number] [place] [address]- 8603 Aug, [facility] [place] [facility] [address] [id number] [place] [address]- 1501 Aug, [facility] [place] [facility] [address] [id number] [place] [address]- 2916 Aug, [facility] [place] [facility] [address] [id number] [place] [address]- 8997 Aug, [facility] [place] [facility] [address] [id number] [place] [address]- 9903 Aug, [facility] [place] [facility] [address] [id number] [place] [address]- 5176 Jul, [facility] [place] [facility] [address] [id number] [place] [address]- 8006 Jul, [facility] [place] [facility] [address] [id number] [place] [address]- 4987 Jul, [facility] [place] [facility] [address] [id number] [place] [address]- 1884 Jul, [facility] [place] [facility] [address] [id number] [place] [address]- 7764 Jul, [facility] [place] [facility] [address] [id number] [place] [address]- 2646 Jul, [facility] [place] [facility] [address] [id number] [place] [address]- 1531 27 Jun, 2014 [facility] [place] [facility] [address] [id number] [place] [address]- 4750 27 Jun, 2014 [facility] [place] [facility] [address] [id number] [place] [address]- 4390 26 Jun, 2014 [facility] [place] [facility] [address] [id number] [place] [address]- 4555 Jun, 2013 [facility] [place] [facility] [address] [id number] [place] [address]- 6940 Jun, 2013 [facility] [place] [facility] [address] [id number] [place] [address]- 0265 Jun, [facility] [place] [facility] [address] [id number] [place] [address] 2546 Jun, 2013 [facility] [place] [facility] [address] [id number] [place] [address] 2543 Jun, 2013 [facility] [place] [facility] [address] [id number] [place] [address]- 5160 Jun, 2013 [facility] [place] [facility] [address] [id number] [place] [address]- 7854 Jun, 2013 [facility] [place] [facility] [address] [id number] [place] [address]- 2681 Jun, [facility] [place] [facility] [address] [id number] [place] [address]- 0678 May, [facility] [place] [facility] [address] [id number] [place] [address]- 7558 May, [facility] [place] [facility] [address] [id number] [place] [address]- 2151 May, [facility] [place] [facility] [address] [id number] [place] [address]- 0943 May, [facility] [place] [facility] [address] [id number] [place] [address]- 1163 May, [facility] [place] [facility] [address] [id number] [place] [address]- 3379 May, [facility] [place] [facility] [address] [id number] [place] [address]- 7716 May, [facility] [place] [facility] [address] [id number] [place] [address]- 2222 May, [facility] [place] [facility] [address] [id number] [place] [address]- 4305 May, [facility] [place] [facility] [address] [id number] [place] [address]- 2482 May, [facility] [place] [facility] [address] [id number] [place] [address]- 9321 Apr, [facility] [place] [facility] [address] [id number] [place] [address]- 8545 Apr, [facility] [place] [facility] [address] [id number] [place] [address]- 4906 Apr, [facility] [place] [facility] [address] [id number] [place] [address]- 8471 Apr, [facility] [place] [facility] [address] [id number] [place] [address]- 8716 Apr, [facility] [place] [facility] [address] [id number] [place] [address]- 2972 Apr, [facility] [place] [facility] [address] [id number] [place] [address]- 6232 Apr, [facility] [place] [facility] [address] [id number] [place] [address]- 4058 Apr, [facility] [place] [facility] [address] [id number] [place] [address]- 7339 Apr, [facility] [place] [facility] [address] [id number] [place] [address]- 8111 Apr, [facility] [place] [facility] [address] [id number] [place] [address]- 1178 Mar, [facility] [place] [facility] [address] [id number] [place] [address]- 3274 Mar, [facility] [place] [facility] [address] [id number] [place] [address]- 5625 Mar, [facility] [place] [facility] [address] [id number] [place] [address]- 9415 Mar, [facility] [place] [facility] [address] [id number] [place] [address]- 1286 Mar, [facility] [place] [facility] [address] [id number] [place] [address]- 3952 Mar, [facility] [place] [facility] [address] [id number] [place] [address]- 7909 Mar, [facility] [place] [facility] [address] [id number] [place] [address]- 3380 Mar, [facility] [place] [facility] [address] [id number] [place] [address]- 5820 Mar, [facility] [place] [facility] [address] [id number] [place] [address]- 0956 Mar, [facility] [place] [facility] [address] [id number] [place] [address]- 3775 Mar, [facility] [place] [facility] [address] [id number] [place] [address]- 3330 Mar, [facility] [place] [facility] [address] [id number] [place] [address]- 6667 Mar, [facility] [place] [facility] [address] [id number] [place] [address]- 0441 Mar, [facility] [place] [facility] [address] [id number] [address]- 7873 Mar, [facility] [place] [facility] [address] [id number] [address]- 3164 Mar, [facility] [place] [facility] [address] [id number] [place] [address]- 0804 Mar, [facility] [place] [facility] [address] [id number] [place] [address]- 9574 Mar, [facility] [place] [facility] [address] [id number], [place] [address]- 1183 04 Mar, 2014 [facility] [place] [facility] [address] [id number], [place] [address]- 7868 Mar, [facility] [address] [id number] [place] [address]- 9495 February, [facility] [place] [facility] [address] [id number] [place] [address]- 0932 February, [facility] [place] [facility] [address] [id number] [place] [address]- 8636 February, [facility] [place] [facility] [address] [id number] [place] [address]- 7571 February, [facility] [place] [facility] [address] [id number] [place] [address]- 8971 February, [facility] [place] [facility] [address] [id number] [place] [address]- 0005 February, [facility] [address] [id number] [place] [address]- 6478 February, [facility] [place] [facility] [address] [id number] [place] [address]- 5295 February, [facility] [place] [facility] [address] [id number] [place] [address]- 0275 February, [facility] [place] [facility] [address] [id number] [place] [address]- 6528 February, [facility] [place] [facility] [address] [id number] [place] [address]- 3121 February, [facility] [place] [facility] [address] [id number] [place] [address]- 7784 February, [facility] [place] [facility] [address] [id number] [place] [address]- 6615 February, [facility] [place] [facility] [address] [id number] [place] [address]- 3496 February, [facility] [place] [facility] [address] [id number] [place] [address]- 6351 February, [facility] [place] [facility] [address] [id number] [place] [address]- 2590 February, [facility] [place] [facility] [address] [id number] [place] [address]- 9679 February, [facility] [place] [facility] [address] [id number] [place] 1228 February, [facility] [place] [facility] [address] [id number] [place] [address]- 5586 February, [facility] [place] [facility] [address] [id number] [place] [address]- 3775 February, [facility] [place] [facility] [address] [id number] [place] [address]- 2856 February, [facility] [place] [facility] [address] [id number] [place] [address]- 4334 Jan, [facility] [place] [facility] [address] [id number] [place] [address]- 2125 Jan, [facility] [place] [facility] [address] [id number] [place] [address]- 3366 Jan, [facility] [place] [facility] [address] [id number] [place] [address]- 9380 Jan, [facility] [place] [facility] [address] [id number] [place] [address]- 3036 Jan, [facility] [place] [facility] [address] [id number] [place] [address]- 3219 Jan, [facility] [place] [facility] [address] [id number] [place] [address]- 8668 Jan, [facility] [place] [facility] [address] [id number] [place] [address]- 3747 Jan, [facility] [place] [facility] [address] [id number] [place] [address]- 8029 Dec, [facility] [place] [facility] [address] [id number] [place] [address]- 5792 20 Dec, 2013 [facility] [place] [facility] [address] [id number] [place] [address]- 7550 20 Dec, 2013 [facility] [place] [facility] [address] [id number] [place] [address]- 5922 19 Dec, 2013 [facility] [place] [facility] [address] [id number] [place] [address]- 3099 19 Dec, 2013 [facility] [place] [facility] [address] [id number] [place] [address]- 7346 15 Dec, 2013 [facility] [place] [facility] [address] [id number] [place] [address]- 7806 15 Dec, 2013 [facility] [place] [facility] [address] [id number] [place] [address]- 6254 11 Dec, 2013 [facility] [place] [facility] [address] [id number] [place] [address]- 9406 10 Dec, 2013 [facility] [place] [facility] [address] [id number] [place] [address]- 2618 10 Dec, 2013 [facility] [place] [facility] [address] [id number] [place] [address]- 8767 18 Nov, 2013 [facility] [place] [facility] [address] [id number] [place] [address]- 7731 17 Nov, 2013 [facility] [place] [facility] [address] [id number] [place] [address]- 7770 Nov, [facility] [place] [facility] [address] [id number] [place] [address]- 5444 Nov, [facility] [place] [facility] [address] [id number] [place] [address]- 9766 Nov, [facility] [place] [facility] [address] [id number] [place] [address]- 3822 Oct, [facility] [place] [facility] [address] [id number] [place] [address]- 2628 Oct, [facility] [place] [facility] [address] [id number] [place] [address]- 1229 Oct, [facility] [address] [id number] [place] [address]- 4867 Sep, [facility] [place] [facility] [address] [id number] [place] [address]- 9780 Sep, [facility] [address] [id number] [place] [address]- 3002 Sep, [facility] [place] [facility] [address] [id number] [place] [address]- 9095 Sep, [facility] [address] [id number] [place] [address]- 8887 Aug, [facility] [address] [id number] [place] [address]- 4662 Aug, [facility] [address] [id number] [place] [address]- 8100 Jul, [facility] [address] [id number] [place] [address]- 5764 Jul, [facility] [address] [id number] [place] [address]- 6329 Jul, [facility] [address] [id number] [place] [address]- 9742 Jul, [facility] [place] [facility] [address] [id number] [place] [address]- 5318 Jul, [facility] [address] [id number] [place] [address]- 9957 Jun, [facility] [place] [facility] [address] [id number] [place] [address]- 5205 25 Jun, 2013 [facility] [place] [facility] [address] [id number] [place] [address]- 0636 19 Jun, 2013 [facility] [place] [facility] [address] [id number] [place] [address]- 0997 18 Jun, 2013 [facility] [address] [id number] [place] [address] 16 Jun, 2013 [facility] [place] [facility] [address] [id number] [place] [address]697 12 Jun, 2013 [facility] [place] [facility] [address] [id number] [place] [address] 11 Jun, 2013 [facility] [place] [facility] [address] [id number] [place] [address] 30 May, 2013 [facility] [place] [facility] [address] [id number] [place] [address] May, [facility] [place] [facility] [address] [id number] [place] [address] Apr, [facility] [place] [facility] [address] [id number] [place] [address] Apr, [facility] [place] [facility] [address] [id number] [place] [address] Apr, [facility] [place] [facility] [address] [id number] [place] [address] Mar, [facility] [place] [facility] [address] [id number], [place] [address] Mar, [facility] [place] [facility] [address] [id number] [place] [address] February, [facility] [place] [facility] [address] [id number], [place] [address] February, [facility] [place] [facility] [address] [id number] [place] [address] February, [facility] [place] [facility] [address] [id number] [place] [address] February, [facility] [place] [facility] [address] [id number] [place] [address] Jan, [facility] [place] [facility] [address] [id number], [place] [address] 17 Jan, 2013 [facility] [address] [id number] [place] [address] 2868 16 Jan, 2013 [facility] [place] [facility] [address] [id number] [place] [address] 29 Dec, 2012 [facility] [address] [id number] [place] [address] Dec, [facility] [place] [facility] [address] [id number] [place] [address] 114[address] Dec, [facility] [address] [id number] [place] [address] Dec, [facility] [address] [id number] [place] [address]- [address] Nov, [facility] [address] [id number] [place] [address]276 Nov, [facility] [address] [id number] [place] [address] Oct, [facility] [address] [id number] [place] [address] Oct, [facility] [address] [facility] [id number] [place] [address] Oct, [facility] [address] [id number] [place] [address] Oct, [facility] [place] [facility] [address] [id number] [place] [address] 4463 Aug, [facility] [place] [facility] [address] [id number] [place] [address] Aug, [facility] [place] [facility] [address] [facility] [id number] [place] [address] Jun, [facility] [address] [facility] [id number], [place] [address] May, [facility] [place] [facility] [address] [id number] [place] [address]99 May, [facility] [place] [facility] [address] [id number] [place] [address] Apr, [facility] [place] [facility] [address] [id number] [place] [address] 2546 Apr, [facility] [place] [facility] [address] [id number] [place] [address] Apr, [facility] [place] [facility] [address] [id number] [place] [address] Mar, [facility] [place] [facility] [address] [id number] [place] [address]95 Mar, [facility] [place] [facility] [address] [id number] [place] [address] Mar, [facility] [place] [facility] [address] [id number] [place] [address] Mar, [facility] [place] [facility] [address] [id number] [place] [address] 2012 Mar, [facility] [place] [facility] [address] [id number] [place] [address] February, [facility] [place] [facility] [address] [id number] [place] [address] February, [facility] [place] [facility] [address] [id number] [place] [address] February, [facility] [place] [facility] [address] [id number] [place] [address] February, [facility] [place] [facility] [address] [id number] [place] [address] 1315 February, [facility] [place] [facility] [address] [id number] [place] [address] February, [facility] [place] [facility] [address] [id number] [place] [address] 2189 February, [facility] [place] [facility] [address] [id number] [place] [address]32 25 Jan, 2012 [facility] [place] [facility] [address] [id number] [place] [address]- 8636 18 Jan, 2012 [facility] [place] [facility] [address] [id number] [place] [address]- [address] 17 Jan, 2012 [facility] [place] [facility] [address] [id number] [place] [address]- [address]598 13 Jan, 2012 [facility] [place] [facility] [address] [id number] [place] [address]- [address]159 10 Jan, 2012 [facility] [place] [facility] [address] [id number] [place] [address]- [address]80 04 Jan, 2012 [facility] [place] [facility] [address] [id number] [place] [address]- 2771 30 Dec, 2011 [facility] [place] [facility] [address] [id number] [place] [address]- [address]90 24 Dec, 2011 [facility] [place] [facility] [address] [id number] [place] [address] 2315 20 Dec, 2011 [facility] [place] [facility] [address] [id number] [place] [address] 8361 Dec, [facility] [place] [facility] [address] [id number] [place] [address]708 06 Dec, 2011 [facility] [place] [facility] [address] [id number] [place] [address]- 1852 28 Nov, 2011 [facility] [place] [facility] [address] [id number] [place] [address]- [address]85 27 Nov, 2011 [facility] [place] [facility] [address] [id number] [place] [address]- 1678 25 Nov, 2011 [facility] [place] [facility] [address] [id number] [place] [address]- 3977 14 Nov, 2011 [facility] [place] [facility] [address] [id number] [place] [address]- 2042 10 Nov, 2011 [facility] [address] [id number] [place] [address] Nov, [facility] [place] [facility] [address] [id number] [place] [address] Oct, [facility] [address] [id number] [place] [address] Oct, [facility] [place] [facility] [address] [id number] [place] [address] Oct, [facility] [place] [facility] [address] [id number] [place] [address] Oct, [facility] [address] [id number] [place] [address] Oct, [facility] [address] [id number] [place] [address] Sep, [facility] [address] [id number] [place] [address] Sep, [facility] [address] [id number] [place] [address] Sep, [facility] [address] [id number] [place] [address] 14 Sep, 2011 [facility] [place] [facility] [address] [id number] [place] [address] 14 Sep, 2011 [facility] [place] [facility] [address] [id number] [place] [address] 13 Sep, 2011 [facility] [place] [facility] [address] [id number] [place] [address] 12 Sep, 2011 [facility] [place] [facility] [address] [id number] [place] [address] 09 Sep, 2011 [facility] [place] [facility] [address] [id number] [place] [address] Sep, [facility] [place] [facility] [address] [id number] [place] [address] Aug, [facility] [place] [facility] [address] [id number] [place] [address] Aug, [facility] [place] [facility] [address] [id number] [place] [address] Aug, [facility] [place] [facility] [address] [id number] [place] [address] Aug, [facility] [place] [facility] [address] [id number] [place] [address] Aug, [facility] [place] [facility] [address] [id number] [place] [address] Aug, [facility] [place] [facility] [address] [id number] [place] [address] Aug, [facility] [place] [facility] [address] [id number], [place] [address] Aug, [facility] [place] [facility] [address] [id number], [place] [address] Aug, [facility] [place] [facility] [address] [id number], [place] [address] Aug, [facility] [place] [facility] [address] [id number], [place] [address] Aug, [facility] [place] [facility] [address] [id number], [place] [address] Aug, [facility] [place] [facility] [address] [id number], [place] [address] Jul, [facility] [place] [facility] [address] [id number], [place] [address] Jul, [facility] [place] [facility] [address] [id number], [place] [address] Jul, [facility] [place] [facility] [id number] [address] Jul, [facility] [place] [id number], [place] [address] Jul, [facility] [place] [id number], [place] [address] Jul, [facility] [place] [id number] [address] Jul, [facility] [place] [id number], [place] [address] Jul, [facility] [place] [id number] [place] [address] Jul, [facility] [place] [id number], [place] [address] Jul, [facility] [place] [id number] [address] Nov, [facility] [place] [id number], [place] [address] Aug, [facility] [place] [id number] [address] Aug, [facility] [place] [id number], [place] [address] Aug, [facility] [place] [id number] [address] Aug, [facility] [place] [id number] [address] Jul, IMMUNIZATIONS No Known Immunizations SOCIAL HISTORY Never Assessed REASON FOR VISIT LIANA f/u Mila PLAN OF CARE Activity Details Follow Up 4 Weeks Reason:LIANA f/u VITAL SIGNS Height 65.75 in 2018-02-27 Weight 190.5 lbs 2018-02-27 Heart Rate 96 bpm 2018-02-27 Respiratory Rate 20 2018-02-27 BMI 30.98 kg/m2 2018-02-27 Blood pressure systolic 112 mmHg 2018-02-27 Blood pressure diastolic 82 mmHg 2018-02-27 MEDICATIONS Medication Instructions Dosage Frequency Start Date End Date Duration Status Abilify 30 MG Orally Once a day 1 tablet 24h Active Trintellix 20 mg orally Once a day 1 tablet 24h Active NovoLog Mix 70/30 (70-30) 100 UNIT/ML Subcutaneous 3 times a day 27 units 8h Not-Taking Ativan 1 MG Orally 2 times a day as needed 1 tablet Active Intuniv 1 MG Orally 2 times a day 1 tablet 12h Active Trileptal 300 MG Orally Twice a day 0.5 tablet 12h Jan, Active Metformin HCl 1000 MG Orally 2 times a day 1 tablet 12h Not-Taking Hydrocodone-Acetaminophen 10-325 mg 1 Tablet by Oral route every 8 hours PRN pain Jul, Active Levothyroxine Sodium 75 MCG Orally Once a day 1 tablet on an empty stomach in the morning 24h Active Topamax 100 mg Orally Twice a day 1.5 tablet 12h Active Insulin Detemir 100 unit/mL (3 mL) Subcutaneous 2 times a day 35 units by Subcutaneous route 1 time per day qHS 12h February, Active Seroquel 200 MG Orally Once a day at bedtime for sleep 1 tablet Aug, Active RESULTS No Results PROCEDURES Procedure Date Ordered Result Body Site [facility] VISIT ESTABLISHED PATIENT February 27, 2018 INSTRUCTIONS MEDICATIONS ADMINISTERED No Known Medications MEDICAL (GENERAL) HISTORY Type Description Date Medical History diabetes Medical History thyroid Surgical History appendix Surgical History gallbladder Surgical History eyes Surgical History hip Surgical History MRI on back and pelvis 06/08 Hospitalization History surgeries Hospitalization History [facility] Su[facility] attempt by hanging 06/14/2016 Hospitalization History [facility] 01/30/2018-02/10/2008 Hospitalization History [facility] 05/04/18-05/09/18
--- OUTSIDE RECORDS SUMMARY | 2018-08-15 20:28 | XMS REPORT ---
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 46946623 Problem Schizoaffective disorder, depressive type F25.1 Active 85909946 Problem Borderline personality disorder F60.3 Active 75894724 Problem Attention deficit hyperactivity disorder (ADHD), inattentive type, 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 82751722 Problem Schizoaffective disorder, unspecified F25.9 Active 76172573 Problem High risk medication use Z79.899 Active 722763657 Problem Posttraumatic stress disorder F43.10 Active 84052981 Problem Obsessive-compulsive disorders 300.3 Active 222160633 Problem Generalized anxiety disorder 300.02 Active 33225799 Problem Attention deficit disorder 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 314.00 Active 58458694 Problem Bipolar disorder, unspecified 296.80 Active 60184305 Problem Posttraumatic stress disorder 309.81 Active 00217190 Problem Paranoid schizophrenia, unspecified condition 295.30 Active [id number] ALLERGIES No Information ENCOUNTERS Encounter Location Date Diagnosis [facility] 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 and Borderline personality disorder F60.3 [facility] [id number], [place] [address] Apr, [facility] [id number], [place] [address] Apr, Paranoid schizophrenia F20.0 ; Posttraumatic stress disorder F43.10 ; Attention deficit hyperactivity disorder (ADHD), inattentive type, 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 and Borderline personality disorder F60.3 [facility] [id number], [place] [address] Apr, [facility] [id number] [address] Apr, Schizoaffective disorder, depressive type F25.1 and Borderline personality disorder F60.3 [facility] [address], [place] [address] Apr, Paranoid schizophrenia F20.0 ; Posttraumatic stress disorder F43.10 ; Attention deficit hyperactivity disorder (ADHD), inattentive type, 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 and Borderline personality disorder F60.3 [facility] [address], [place] [address] February, Paranoid schizophrenia F20.0 [facility] [address] [address] 1506 February, Paranoid schizophrenia F20.0 ; Posttraumatic stress disorder F43.10 ; Attention deficit hyperactivity disorder (ADHD), inattentive type, 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 and Borderline personality disorder F60.3 [facility] [address], [place] [address] February, Paranoid schizophrenia F20.0 ; Posttraumatic stress disorder F43.10 ; Attention deficit hyperactivity disorder (ADHD), inattentive type, 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 and Borderline personality disorder F60.3 [facility] [address] [address] February, [place] [address], [place] [address] 67[address] February, Paranoid schizophrenia F20.0 [facility] [address], [place] [address] 4528 February, Paranoid schizophrenia F20.0 [facility] [id number], [place] [address] 0[address] February, Paranoid schizophrenia F20.0 ; Posttraumatic stress disorder F43.10 ; Attention deficit hyperactivity disorder (ADHD), inattentive type, 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 and Borderline personality disorder F60.3 [facility] [id number], [place] [address] 9429 Jan, Paranoid schizophrenia F20.0 ; Posttraumatic stress disorder F43.10 ; Attention deficit hyperactivity disorder (ADHD), inattentive type, 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 and Borderline personality disorder F60.3 [facility] [address], [place] [address] 0[address] Jan, Paranoid schizophrenia F20.0 [facility] [address], [place] [address] 2224 Jan, Paranoid schizophrenia F20.0 [facility] [id number] [place] [address]- 3984 Jan, Paranoid schizophrenia F20.0 ; Posttraumatic stress disorder F43.10 ; Attention deficit hyperactivity disorder (ADHD), inattentive type, 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 and Borderline personality disorder F60.3 [facility] [id number] [place] [address]84- 4363 Dec, [facility] [id number] [place] [address] 82573- 6262 Nov, Paranoid schizophrenia F20.0 ; Posttraumatic stress disorder F43.10 ; Attention deficit hyperactivity disorder (ADHD), inattentive type, 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 and Borderline personality disorder F60.3 [facility] [address], [place] [address]- [address] Nov, [facility] [address], [place] [address]- 0795 Oct, Paranoid schizophrenia F20.0 [facility] [address], [place] [address]- 8875 Oct, Paranoid schizophrenia F20.0 ; Posttraumatic stress disorder F43.10 ; Attention deficit hyperactivity disorder (ADHD), inattentive type, 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 ; Borderline personality disorder F60.3 and Other retirement ( 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 Z79.899 [facility] [id number] [place] [address]- 5270 Oct, [facility] [address], [place] [address] 7259 Oct, [facility] [id number], [place] [address] Sep, [facility] [address], [place] [address]- 4745 Sep, Paranoid schizophrenia F20.0 ; Posttraumatic stress disorder F43.10 ; Attention deficit hyperactivity disorder (ADHD), inattentive type, 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 and Borderline personality disorder F60.3 [facility] [address], [place] [address]- 9160 Sep, Paranoid schizophrenia F20.0 [facility] [address], [place] [address] 7503 Aug, Paranoid schizophrenia F20.0 ; Posttraumatic stress disorder F43.10 ; Attention deficit hyperactivity disorder (ADHD), inattentive type, 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 and Borderline personality disorder F60.3 [facility] [address], [place] [address] 9[address] Aug, Paranoid schizophrenia F20.0 ; Posttraumatic stress disorder F43.10 ; Attention deficit hyperactivity disorder (ADHD), inattentive type, 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 and Borderline personality disorder F60.3 [facility] [address], [place] [address] Aug, [facility] [address], [place] [address]- 7[address] Jul, Paranoid schizophrenia F20.0 ; Posttraumatic stress disorder F43.10 ; Attention deficit hyperactivity disorder (ADHD), inattentive type, 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 and Borderline personality disorder F60.3 [facility] [id number], [place] [address] 1641 Jul, Paranoid schizophrenia F20.0 [facility] [address], [place] [address] 2667 Jul, Paranoid schizophrenia F20.0 ; Posttraumatic stress disorder F43.10 ; Attention deficit hyperactivity disorder (ADHD), inattentive type, 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 and Borderline personality disorder F60.3 [facility] [id number], [place] [address] 9771 Jun, Paranoid schizophrenia F20.0 ; Posttraumatic stress disorder F43.10 ; Attention deficit hyperactivity disorder (ADHD), inattentive type, 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 [facility] [id number], [place] [address]- 2485 May, Paranoid schizophrenia F20.0 ; Posttraumatic stress disorder F43.10 ; Attention deficit hyperactivity disorder (ADHD), inattentive type, 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 and 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 [facility] [id number], [place] [address]- 8406 Apr, Paranoid schizophrenia F20.0 [facility] [id number], [place] [address]- 6044 Apr, Paranoid schizophrenia F20.0 ; Posttraumatic stress disorder F43.10 and Attention deficit hyperactivity disorder (ADHD), inattentive type, 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 [facility] [address], [place] [address]- 0[address] February, [facility] [id number] [place] [address] 07686- 8263 February, Paranoid schizophrenia F20.0 ; Posttraumatic stress disorder F43.10 and Attention deficit hyperactivity disorder (ADHD), inattentive type, 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 [facility] [address], [place] [address]- 0474 February, Paranoid schizophrenia F20.0 ; Posttraumatic stress disorder F43.10 and Attention deficit hyperactivity disorder (ADHD), inattentive type, 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 [facility] [address] [place] [address] 00057- 4764 Jan, Paranoid schizophrenia F20.0 ; Posttraumatic stress disorder F43.10 and Attention deficit hyperactivity disorder (ADHD), inattentive type, 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 [facility] [address] [place] [address] [id number] Dec, Dental examination Z01.20 [facility] [address] [place] [address] [id number] Nov, Dental examination Z01.20 [facility] [id number] [place] [address] [id number] Nov, Dental examination Z01.20 [facility] [address] [place] [address] [id number] Nov, Dental caries K02.9 [facility] [address], [place] [address]- 2632 13 Nov, 2016 High risk medication use Z79.899 [facility] [id number] [place] [address] 93264- 5559 Nov, Paranoid schizophrenia F20.0 ; Posttraumatic stress disorder F43.10 ; Attention deficit hyperactivity disorder (ADHD), inattentive type, 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 and Borderline personality disorder in adult F60.3 [facility] [address] [place] [address] [id number] Oct, Dental caries K02.9 [facility] [id number] [place] [address] 92801- 1183 Sep, Paranoid schizophrenia F20.0 ; Posttraumatic stress disorder F43.10 and Attention deficit hyperactivity disorder (ADHD), inattentive type, 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 [facility] [address], [place] [address]- 0147 Aug, Paranoid schizophrenia F20.0 ; Posttraumatic stress disorder F43.10 and Attention deficit hyperactivity disorder (ADHD), inattentive type, 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 [facility] [id number] [place] [address]99 -2649 Aug, Strep throat J02.0 and Cough R05 [facility] [id number] [place] [address] 45843- 2606 Aug, [facility] [id number] [place] [address] 36268- 5370 24 Jul, 2016 Paranoid schizophrenia F20.0 ; Posttraumatic stress disorder F43.10 and Attention deficit hyperactivity disorder (ADHD), inattentive type, 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 [facility] [address] [place] [address] 27149- 8087 Jul, [facility] [id number] [place] [address] 50684- 8001 28 Jun, 2016 Paranoid schizophrenia F20.0 ; Posttraumatic stress disorder F43.10 and Attention deficit hyperactivity disorder (ADHD), inattentive type, 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 [facility] [address] [id number] Jun, Dental examination Z01.20 [facility] [address] [place] [address] 59281- 7626 Jun, [facility] [address], [place] [address]- 6205 May, Paranoid schizophrenia F20.0 [facility] [address], [place] [address]- 9461 May, Paranoid schizophrenia F20.0 ; Posttraumatic stress disorder F43.10 and Attention deficit hyperactivity disorder (ADHD), inattentive type, 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 [id number] [address]13 May, [facility] [id number] [place] [address] 07888- 7331 May, Paranoid schizophrenia F20.0 [facility] [address] [facility] [id number] [place] [address] 33623- 9897 May, [facility] [id number] [place] [address] 37624- 0373 May, Paranoid schizophrenia F20.0 [facility] [id number], [place] [address]- 9901 May, Schizoaffective disorder, unspecified F25.9 [facility] [id number], [place] [address]- 3404 May, Schizoaffective disorder, unspecified F25.9 [facility] [id number], [place] [address]- 3173 May, [facility] [id number], [place] [address]- 9957 May, Paranoid schizophrenia F20.0 [facility] [id number] [address]- 6922 May, Paranoid schizophrenia F20.0 ; Posttraumatic stress disorder F43.10 and Attention deficit hyperactivity disorder (ADHD), inattentive type, 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 [id number] [address] 8726 Mar, [facility] [address] 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 [id number], [place] [address]- 2549 February, [facility] [address] [id number], [place] [address]- 8503 February, [facility] [address] [facility] [id number], [place] [address]- 3805 February, [facility] [address] [facility] [id number], [place] [address]- 3211 February, [facility] [address] [facility] [id number], [place] [address]- 9553 Jan, Paranoid schizophrenia F20.0 [facility] [address] [id number] [id number] Jan, Dental examination Z01.20 [facility] [address] [id number] [id number] Jan, Dental caries K02.9 [facility] [address] [id number][place] [address] Jan, Dental examination Z01.20 [facility] [address] [id number][place] [id number] Dec, Encounter for dental examination Z01.20 [facility] [address] 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 [facility] [address], [place] [address]- 9158 Nov, Schizoaffective disorder, unspecified F25.9 [facility] [address], [place] [address]- 7925 Oct, Paranoid schizophrenia F20.0 [facility] [id number], [place] [address]- 3833 Oct, [facility] [address], [place] [address]- 3587 Sep, Paranoid schizophrenia F20.0 ; Posttraumatic stress disorder F43.10 and Attention deficit hyperactivity disorder (ADHD), inattentive type, 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 [facility] [address], [place] [address]- 8364 Sep, [facility] [id number], [place] [address]- 1657 Sep, Paranoid schizophrenia F20.0 ; Posttraumatic stress disorder F43.10 and Attention deficit hyperactivity disorder (ADHD), inattentive type, 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 [facility] [id number], [place] [address]- 8458 Aug, Paranoid schizophrenia F20.0 [facility] [id number] [place] [address] 92156- 6457 Aug, [facility] [id number] [place] [address] 60774- 1044 Aug, Posttraumatic stress disorder F43.10 ; Paranoid schizophrenia F20.0 and Attention deficit hyperactivity disorder (ADHD), inattentive type, 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 [facility] [address] [place] [address] 25214- 3535 Jul, Bipolar disorder, unspecified F31.9 [facility] [id number] [place] [address] 43756- 6626 Jul, [facility] [id number] [place] [address] 16734- 9493 Jun, [facility] [id number] [place] [address] 12932- 1796 Jun, Schizoaffective disorder, chronic 295.72 ; Posttraumatic stress disorder 309.81 and Attention deficit disorder 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 314.00 [facility] [id number] [place] [address] 34774- 2035 May, [facility] [id number] [place] [address] 49994- 1707 May, [facility] [id number] [place] [address] 06725- 7383 May, Schizoaffective disorder, chronic 295.72 ; Posttraumatic stress disorder 309.81 ; Attention deficit disorder 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 314.00 and Bipolar disorder, unspecified 296.80 [facility] [id number] [place] [address] 10372- 2294 Apr, Schizoaffective disorder, chronic 295.72 [facility] [id number] [place] [address] 35974- 4383 Apr, [facility] [address], [place] [address]- 3645 Apr, Schizoaffective disorder, chronic 295.72 ; Posttraumatic stress disorder 309.81 and Attention deficit disorder 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 314.00 [facility] [address] [address]- 6484 Mar, Disorganized schizophrenia, 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 [facility] [id number], [place] [address]- 3517 Mar, [facility] [address], [place] [address]- 7169 Mar, [facility] [address], [place] [address]- 8336 Mar, [facility] [address], [place] [address]- 0739 Mar, [facility] [address] [address]- 2167 February, Schizoaffective disorder, chronic 295.72 [facility] [address], [place] [address]- 0175 February, [facility] [address] [address]- 6436 February, Attention deficit disorder 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 314.00 ; Posttraumatic stress disorder 309.81 and Schizoaffective disorder, chronic 295.72 [facility] [address], [place] [address]- 4613 Jan, [facility] [address], [place] [address]- 6263 Jan, [facility] [address], [place] [address]- 6269 Jan, [facility] [address], [place] [address]- 9714 Dec, [facility] [id number] [place] [address]- 4007 Dec, [facility] [place] [facility] [address] [id number] [place] [address]- 5059 Dec, [facility] [place] [facility] [address] [id number] [place] [address]- 3268 Dec, [facility] [place] [facility] [address] [id number] [place] [address]226 Dec, [facility] [place] [facility] [address] [id number] [place] [address] 1496 Dec, [facility] [place] [facility] [address] [id number] [place] [address]- 1108 Dec, [facility] [place] [facility] [address] [facility] [id number] [place] [address] 7492 Dec, [facility] [place] [facility] [address] [facility] [id number] [place] [address] 7321 Nov, [facility] [place] [facility] [address] [facility] [id number] [place] [address]- 7407 Nov, [facility] [place] [facility] [address] [facility] [id number] [place] [address] 5155 Nov, [facility] [place] [facility] [address] [facility] [id number] [place] [address]- 1648 Nov, 2014 [facility] [place] [facility] [address] [facility] [id number] [place] [address]- 8631 Nov, 2014 [facility] [place] [facility] [address] [facility] [id number] [place] [address]- 7707 Nov, 2014 [facility] [place] [facility] [address] [facility] [id number] [place] [address]- 5472 Nov, 2014 [facility] [place] [facility] [address] [facility] [id number] [place] [address]- 7690 Nov, 2014 [facility] [place] [facility] [address] [facility] [id number] [place] [address]- 7404 Nov, [facility] [place] [facility] [address] [id number] [place] [address]- 4789 Nov, [facility] [place] [facility] [address] [id number] [place] [address]- 5156 Oct, [facility] [place] [facility] [address] [id number] [place] [address]- 9680 Oct, [facility] [place] [facility] [address] [id number] [place] [address]- 6087 Oct, [facility] [place] [facility] [address] [id number] [place] [address]- 5433 Oct, [facility] [place] [facility] [address] [id number] [place] [address]- 0488 Oct, [facility] [place] [facility] [address] [id number] [place] [address]- 4450 Oct, [facility] [place] [facility] [address] [id number] [place] [address]- 4813 Oct, [facility] [place] [facility] [address] [id number] [place] [address]- 8880 Sep, [facility] [place] [facility] [address] [id number] [place] [address]- 2029 17 Sep, 2014 [facility] [place] [facility] [address] [id number] [place] [address]- 6597 15 Sep, 2014 [facility] [place] [facility] [address] [id number] [place] [address]- 0266 15 Sep, 2014 [facility] [place] [facility] [address] [id number] [place] [address]- 2703 20 Aug, 2014 [facility] [place] [facility] [address] [id number] [place] [address]- 4879 20 Aug, 2014 [facility] [place] [facility] [address] [id number] [place] [address]- 0872 14 Aug, 2014 [facility] [place] [facility] [address] [id number] [place] [address]- 6371 14 Aug, 2014 [facility] [place] [facility] [address] [id number] [place] [address]- 3537 Aug, [facility] [place] [facility] [address] [id number] [place] [address]- 3020 Aug, [facility] [place] [facility] [address] [id number] [place] [address]- 0820 Jul, [facility] [place] [facility] [address] [id number] [place] [address]- 1150 Jul, [facility] [place] [facility] [address] [id number] [place] [address]- 4293 Jul, [facility] [place] [facility] [address] [id number] [place] [address]- 4876 Jul, [facility] [place] [facility] [address] [id number] [place] [address]- 7230 Jul, [facility] [place] [facility] [address] [id number] [place] [address]- 4256 15 Jul, 2014 [facility] [place] [facility] [address] [id number] [place] [address]- 2946 27 Jun, 2014 [facility] [place] [facility] [address] [id number] [place] [address]- 2813 27 Jun, 2014 [facility] [place] [facility] [address] [id number] [place] [address]- 2541 26 Jun, 2013 [facility] [place] [facility] [address] [id number] [place] [address]- 2542 26 Jun, 2013 [facility] [place] [facility] [address] [id number] [place] [address]- 7793 26 Jun, 2013 [facility] [place] [facility] [address] [id number] [place] [address]- 4782 26 Jun, 2013 [facility] [place] [facility] [address] [id number] [place] [address]- 6563 Jun, [facility] [place] [facility] [address] [id number] [place] [address]- 7173 Jun, [facility] [place] [facility] [address] [id number] [place] [address]- 0048 Jun, [facility] [place] [facility] [address] [id number] [place] [address]- 3319 Jun, [facility] [place] [facility] [address] [id number] [place] [address]- 8391 Jun, [facility] [place] [facility] [address] [id number] [place] [address]- 7129 May, [facility] [place] [facility] [address] [id number] [place] [address]- 0665 May, [facility] [place] [facility] [address] [id number] [place] [address]- 8857 May, [facility] [place] [facility] [address] [id number] [place] [address]- 4753 May, [facility] [place] [facility] [address] [id number] [place] [address]- 9478 May, [facility] [place] [facility] [address] [id number] [place] [address]- 2653 May, [facility] [place] [facility] [address] [id number] [place] [address]- 9051 May, [facility] [place] [facility] [address] [id number] [place] [address]- 3731 May, [facility] [place] [facility] [address] [id number] [place] [address]- 8700 May, [facility] [place] [facility] [address] [id number] [place] [address]- 4200 May, [facility] [place] [facility] [address] [id number] [place] [address]- 9072 Apr, [facility] [place] [facility] [address] [id number] [address]- 8232 Apr, [facility] [place] [facility] [address] [id number] [place] [address]- 0354 Apr, [facility] [place] [facility] [address] [id number] [place] [address]- 6070 Apr, [facility] [place] [facility] [address] [id number] [place] [address]- 0794 Apr, [facility] [place] [facility] [address] [id number] [place] [address]- 6064 Apr, [facility] [place] [facility] [address] [id number] [place] [address]- 1825 Apr, [facility] [place] [facility] [address] [id number] [place] [address]- 5997 Apr, [facility] [place] [facility] [address] [id number] [place] [address]- 7599 Apr, [facility] [place] [facility] [address] [id number] [place] [address]- 8264 Apr, [facility] [place] [facility] [address] [id number] [place] [address]- 4450 Mar, [facility] [place] [facility] [address] [id number] [place] [address]- 9353 Mar, [facility] [place] [facility] [address] [id number] [place] [address]- 8000 Mar, [facility] [place] [facility] [address] [id number] [place] [address]- 6649 Mar, [facility] [place] [facility] [address] [id number] [place] [address]- 9304 Mar, [facility] [place] [facility] [address] [id number] [place] [address]- 0441 Mar, [facility] [place] [facility] [address] [id number] [place] [address]- 9983 Mar, [facility] [place] [facility] [address] [id number] [place] [address]- 4338 16 Mar, 2014 [facility] [place] [facility] [address] [id number] [place] [address]- 2854 Mar, [facility] [place] [facility] [address] [id number] [place] [address]- 1046 Mar, [facility] [place] [facility] [address] [id number] [place] [address]- 9185 Mar, [facility] [place] [facility] [address] [id number] [place] [address]- 4419 Mar, [facility] [place] [facility] [address] [id number] [place] [address]- 4454 Mar, [facility] [place] [facility] [address] [id number] [place] [address]- 5837 Mar, [facility] [place] [facility] [address] [id number] [place] [address]- 0894 Mar, [facility] [place] [facility] [address] [id number] [place] [address]- 0471 Mar, [facility] [place] [facility] [address] [id number] [place] [address]- 1788 Mar, [facility] [place] [facility] [address] [id number] [place] [address]- 1619 Mar, [facility] [place] [facility] [address] [id number] [place] [address]- 2607 Mar, [facility] [place] [facility] [address] [id number] [place] [address]- 8025 Mar, [facility] [place] [facility] [address] [id number] [place] [address]- 1732 February, [facility] [place] [facility] [address] [id number] [place] [address]- 4701 February, [facility] [place] [facility] [address] [id number] [place] [address]- 9280 February, [facility] [address] [id number] [place] [address]- 0525 February, [facility] [place] [facility] [address] [id number] [place] [address]- 4341 February, [facility] [place] [facility] [address] [id number] [place] [address]- 7330 February, [facility] [place] [facility] [address] [id number] [place] [address]- 7534 February, [facility] [place] [facility] [address] [id number] [place] [address]- 8278 February, [facility] [place] [facility] [address] [id number] [place] [address]- 3664 February, [facility] [place] [facility] [address] [id number] [place] [address]- 2000 February, [facility] [place] [facility] [address] [id number] [place] [address]- 2375 February, [facility] [place] [facility] [address] [id number] [place] [address]- 5155 February, [facility] [place] [facility] [address] [id number] [place] [address]- 4464 February, [facility] [place] [facility] [address] [id number] [place] [address]- 0552 February, [facility] [place] [facility] [address] [id number] [place] [address]- 9207 February, [facility] [place] [facility] [address] [id number] [place] [address]- 4737 February, [facility] [place] [facility] [address] [id number] [place] [address]- 5456 February, [facility] [place] [facility] [address] [id number] [place] [address]- 3360 February, [facility] [place] [facility] [address] [id number] [place] [address]- 0671 February, [facility] [place] [facility] [address] [id number] [place] [address]- 4575 February, [facility] [place] [facility] [address] [id number] [place] [address]- 1158 February, [facility] [place] [facility] [address] [id number] [place] [address]- 1760 Jan, [facility] [place] [facility] [address] [id number] [place] [address]- 8239 Jan, [facility] [place] [facility] [address] [id number] [place] [address]- 2326 Jan, [facility] [place] [facility] [address] [id number] [place] [address]- 7116 Jan, [facility] [place] [facility] [address] [id number] [place] [address]- 3398 Jan, [facility] [place] [facility] [address] [id number] [place] [address]- 6440 Jan, [facility] [place] [facility] [address] [id number] [place] [address]- 2137 Jan, [facility] [place] [facility] [address] [id number] [place] [address]- 7494 Jan, [facility] [place] [facility] [address] [id number] [place] [address]- 1773 Dec, [facility] [place] [facility] [address] [id number] [place] [address]- 5367 Dec, [facility] [place] [facility] [address] [id number] [place] [address]- 2635 Dec, [facility] [place] [facility] [address] [id number] [place] [address]- 4104 Dec, [facility] [place] [facility] [address] [id number] [place] [address]- 0293 Dec, [facility] [place] [facility] [address] [id number] [place] [address]- 5095 15 Dec, 2013 [facility] [place] [facility] [address] [id number] [place] [address]- 4197 15 Dec, 2013 [facility] [place] [facility] [address] [id number] [place] [address]- 9091 11 Dec, 2013 [facility] [place] [facility] [address] [id number] [place] [address]- 8710 10 Dec, 2013 [facility] [place] [facility] [address] [id number] [place] [address]- 9013 10 Dec, 2013 [facility] [place] [facility] [address] [id number] [place] [address]- 5442 18 Nov, 2013 [facility] [place] [facility] [address] [id number] [place] [address]- 2802 17 Nov, 2013 [facility] [place] [facility] [address] [id number] [place] [address]- 9128 Nov, [facility] [place] [facility] [address] [id number] [place] [address]- 6181 Nov, [facility] [place] [facility] [address] [id number] [place] [address]- 6361 Nov, [facility] [place] [facility] [address] [id number] [place] [address]- 7144 Oct, [facility] [place] [facility] [address] [id number] [place] [address]- 1881 Oct, [facility] [place] [facility] [address] [id number] [place] [address]- 7767 Oct, [facility] [place] [facility] [address] [id number] [place] [address]- 6309 Sep, [facility] [place] [facility] [address] [id number] [place] [address]- 7920 Sep, [facility] [place] [facility] [address] [id number] [place] [address]- 5383 Sep, [facility] [address] [id number] [place] [address]- 3482 Sep, [facility] [place] [facility] [address] [id number], [place] [address]- 1305 Aug, [facility] [place] [facility] [address] [id number] [place] [address]- 2496 Aug, [facility] [place] [facility] [address] [id number] [place] [address]- 6727 Jul, [facility] [place] [facility] [address] [id number] [place] [address]- 8790 Jul, [facility] [place] [facility] [address] [id number] [place] [address]- 0193 Jul, [facility] [address] [id number], [place] [address]- 8931 Jul, [facility] [place] [facility] [address] [id number], [place] [address]- 8885 Jul, [facility] [place] [facility] [address] [id number] [place] [address]- 3968 25 Jun, 2013 [facility] [place] [facility] [address] [id number] [place] [address]- 1047 25 Jun, 2013 [facility] [place] [facility] [address] [id number] [place] [address]- 8306 19 Sep, 2012 [facility] [place] [facility] [address] [id number], [place] [address]- 9640 18 Sep, 2012 [facility] [place] [facility] [address] [id number] [place] [address]- 9833 16 Sep, 2012 [facility] [place] [facility] [address] [id number], [place] [address]- 3138 12 Sep, 2012 [facility] [place] [facility] [address] [id number], [place] [address]- 6469 11 Sep, 2012 [facility] [place] [facility] [address] [id number] [place] [address]- 1934 May, [facility] [address] [id number] [place] [address]- 9568 May, [facility] [place] [facility] [address] [id number] [place] [address]- 9646 Apr, [facility] [place] [facility] [address] [id number] [place] [address]- 3580 Apr, [facility] [place] [facility] [address] [id number] [place] [address]- 0607 Apr, [facility] [place] [facility] [address] [id number] [place] [address]- 4330 Mar, [facility] [address] [id number] [place] [address]- 1200 Mar, [facility] [address] [id number] [place] [address]- 5622 February, [facility] [address] [id number] [place] [address]- 9699 February, [facility] [address] [id number] [place] [address]- 3769 February, [facility] [address] [id number] [place] [address]- 4778 February, [facility] [address] [id number] [place] [address]- 6572 Jan, [facility] [place] [facility] [address] [id number] [place] [address]- 1343 Jan, [facility] [place] [facility] [address] [id number] [place] [address]- 2801 Jan, [facility] [place] [facility] [address] [id number] [place] [address]- 6106 Dec, [facility] [place] [facility] [address] [id number] [place] [address]- 1411 Dec, [facility] [address] [id number] [place] [address]- 7149 Dec, [facility] [place] [facility] [address] [id number] [place] [address]- 0797 Dec, [facility] [place] [facility] [address] [id number] [place] [address]- 4381 Nov, [facility] [place] [facility] [address] [id number] [place] [address]- 1110 Nov, [facility] [place] [facility] [address] [id number] [place] [address]- 8996 Oct, [facility] [place] [facility] [address] [id number] [place] [address]- 6881 Oct, [facility] [place] [facility] [address] [id number] [place] [address]- 9792 Oct, [facility] [place] [facility] [address] [id number] [place] [address]- 5514 Oct, [facility] [place] [facility] [address] [id number] [place] [address]- 8572 Aug, [facility] [place] [facility] [address] [id number] [place] [address]- 0945 Aug, [facility] [place] [facility] [address] [id number] [place] [address]- 7053 Jun, [facility] [place] [facility] [address] [id number] [place] [address]- 4909 May, [facility] [place] [facility] [address] [id number] [place] [address]- 6337 May, [facility] [place] [facility] [address] [id number] [place] [address]- 7445 Apr, [facility] [place] [facility] [address] [id number] [place] [address]- 2546 Apr, [facility] [place] [facility] [address] [id number] [place] [address]- 3983 05 Apr, 2012 [facility] [address] [id number] [place] [address]- 6105 Mar, [facility] [address] [id number] [place] [address]- 3642 Mar, [facility] [address] [id number] [place] [address] Mar, [facility] [address] [id number] [place] [address] Mar, [facility] [address] [id number] [place] [address] Mar, [facility] [address] [id number] [place] [address] February, [facility] [address] [id number] [place] [address] February, [facility] [address] [id number] [place] [address] February, [facility] [address] [id number] [place] [address] February, [facility] [address] [id number] [place] [address] February, [facility] [address] [id number] [place] [address] February, [facility] [address] [id number] [place] [address] February, [facility] [place] [facility] [address] [id number] [place] [address] Jan, [facility] [place] [facility] [address] [id number] [place] [address] 18 Jan, 2012 [facility] [address] [id number] [place] [address] 17 Jan, 2012 [facility] [place] [facility] [address] [id number] [place] [address] 13 Jan, 2012 [facility] [place] [facility] [address] [id number] [place] [address] 10 Jan, 2012 [facility] [place] [facility] [address] [id number] [place] [address]16 04 Jan, 2012 [facility] [place] [facility] [address] [id number] [place] [address] 30 Dec, 2011 [facility] [place] [facility] [address] [id number] [place] [address] 24 Dec, 2011 [facility] [place] [facility] [address] [id number] [place] [address] 20 Dec, 2011 [facility] [place] [facility] [address] [facility] [id number] [place] [address] Dec, [facility] [place] [facility] [address] [id number] [place] [address] Dec, [facility] [place] [facility] [address] [id number] [place] [address] 1847 28 Nov, 2011 [facility] [place] [facility] [address] [facility] [id number] [place] [address] 27 Nov, 2011 [facility] [place] [facility] [address] [id number] [place] [address]76 Nov, [facility] [place] [facility] [address] [id number] [place] [address] 2446 14 Nov, 2011 [facility] [place] [facility] [address] [id number] [place] [address]- [address]35 10 Nov, 2011 [facility] [place] [facility] [address] [id number] [place] [address]686 Nov, [facility] [place] [facility] [address] [facility] [id number] [place] [address] Oct, [facility] [place] [facility] [address] [id number] [place] [address]80 10 Oct, 2011 [facility] [address] [id number] [place] [address]- [address] Oct, [facility] [address] [id number] [place] [address] 1874 Oct, [facility] [address] [id number] [place] [address] Oct, [facility] [address] [id number] [place] [address] 1410 Sep, [facility] [address] [id number] [place] [address] Sep, [facility] [address] [id number] [place] [address] Sep, [facility] [address] [id number] [place] [address]- [address] 14 Sep, 2011 [facility] [address] [id number] [place] [address] 14 Sep, 2011 [facility] [place] [facility] [address] [id number] [place] [address] Sep, [facility] [address] [id number] [place] [address]- 1462 Sep, [facility] [address] [id number] [place] [address] Sep, [facility] [place] [facility] [address] [id number] [place] [address]- [address]9 Sep, [facility] [place] [facility] [address] [id number] [place] [address]- [address]13 30 Aug, 2011 [facility] [place] [facility] [address] [id number] [place] [address]- [address]84 Aug, [facility] [address] [id number] [place] [address]- 0811 Aug, [facility] [place] [facility] [address] [id number] [place] [address]- [address] Aug, [facility] [place] [facility] [address] [id number] [place] [address]- 4727 Aug, [facility] [place] [facility] [address] [id number] [place] [address]- 6615 Aug, [facility] [place] [facility] [address] [id number] [place] [address]- 0048 Aug, [facility] [place] [facility] [address] [id number] [place] [address]- 3812 Aug, [facility] [place] [facility] [address] [id number] [place] [address]- 0430 Aug, [facility] [place] [facility] [address] [id number] [place] [address]- 1325 Aug, [facility] [place] [facility] [address] [id number] [place] [address]- 0910 Aug, [facility] [place] [facility] [address] [id number] [place] [address]- 2635 Aug, [facility] [place] [facility] [address] [id number] [place] [address]- 9915 Jul, [facility] [place] [facility] [address] [id number] [place] [address]- [address]456 Jul, [facility] [place] [facility] [address] [id number] [address] Jul, [facility] [place] [facility] [address] [id number] [place] [address]- 8163 Jul, [facility] [place] [facility] [address] [id number] [place] [address]- 5297 Jul, [facility] [place] [facility] [address] [id number] [place] [address]- 3992 Jul, [facility] [place] [facility] [address] [id number], [place] [address] Jul, [facility] [id number] [address] Jul, [facility] [id number] [address] Jul, [facility] [id number] [address] Jul, [facility] [id number] [address] Nov, [facility] [id number] [place] [address]- [address] Aug, [facility] [id number] [place] [address]- [address] Aug, [facility] [id number] [id number] Aug, [facility] [id number] [address] Aug, [facility] [id number], [place] [address] Jul, IMMUNIZATIONS No Known Immunizations SOCIAL HISTORY Never Assessed REASON FOR VISIT medication refill PLAN OF CARE VITAL SIGNS MEDICATIONS Medication Instructions Dosage Frequency Start Date End Date Duration Status Ativan 1 MG Orally 2 times a day as needed 1 tablet 28 days Active RESULTS No Results PROCEDURES No [...]
--- OUTSIDE RECORDS SUMMARY | 2018-08-15 20:29 | XMS REPORT ---
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 12367528 Problem Schizoaffective disorder, depressive type F25.1 Active 87244671 Problem Borderline personality disorder F60.3 Active 67836900 Problem Attention deficit hyperactivity disorder (ADHD), inattentive type, 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 04527299 Problem Schizoaffective disorder, unspecified F25.9 Active 41986050 Problem High risk medication use Z79.899 Active 004705145 Problem Posttraumatic stress disorder F43.10 Active 32510761 Problem Obsessive-compulsive disorders 300.3 Active 466322139 Problem Generalized anxiety disorder 300.02 Active 32840087 Problem Attention deficit disorder 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 314.00 Active 34515444 Problem Bipolar disorder, unspecified 296.80 Active 48689610 Problem Posttraumatic stress disorder 309.81 Active 86013575 Problem Paranoid schizophrenia, unspecified condition 295.30 Active 02212840 ALLERGIES Substance Reaction Event Type Date Status Latuda agitation Drug Allergy Jan, Active Penicillamine bronchospasm and rash Drug Allergy Jan, Active Cephalexin visual disturbances Drug Allergy Jan, Active Ceftin visual disturbance Drug Allergy Jan, Active Biaxin bronchospasm Drug Allergy Jan, Active Cymbalta 30 Mg Capsule, Delayed Release(e.c.) nausea Non Drug Allergy Jan Active Brintellix 10 Mg Tablet nausea and vomiting Non Drug Allergy Jan, Active ENCOUNTERS Encounter Location Date Diagnosis [facility] [address] [facility] [id number] [address] May, [facility] [id number], [place] [address] May, [facility] [id number], [place] [address] May, Paranoid schizophrenia F20.0 ; Posttraumatic stress disorder F43.10 ; Attention deficit hyperactivity disorder (ADHD), inattentive type, 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 and Borderline personality disorder F60.3 [facility] [id number], [place] [address] Apr, [facility] [id number], [place] [address] Apr, Paranoid schizophrenia F20.0 ; Posttraumatic stress disorder F43.10 ; Attention deficit hyperactivity disorder (ADHD), inattentive type, 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 and Borderline personality disorder F60.3 [facility] [address], [place] [address] Apr, [facility] [id number], [place] [address] Apr, Schizoaffective disorder, depressive type F25.1 and Borderline personality disorder F60.3 [facility] [id number], [place] [address] Apr, Paranoid schizophrenia F20.0 ; Posttraumatic stress disorder F43.10 ; Attention deficit hyperactivity disorder (ADHD), inattentive type, 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 and Borderline personality disorder F60.3 [facility] [id number], [place] [address] Apr, [facility] [id number], [place] [address] Apr, Paranoid schizophrenia F20.0 ; Posttraumatic stress disorder F43.10 ; Attention deficit hyperactivity disorder (ADHD), inattentive type, 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 and Borderline personality disorder F60.3 [facility] [address], [place] [address] Apr, [facility] [address], [place] [address] Mar, Paranoid schizophrenia F20.0 [facility] [address], [place] [address] Mar, [facility] [address], [place] [address] Mar, Paranoid schizophrenia F20.0 ; Posttraumatic stress disorder F43.10 ; Attention deficit hyperactivity disorder (ADHD), inattentive type, 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 and Borderline personality disorder F60.3 [facility] [address], [place] [address] February, Paranoid schizophrenia F20.0 [facility] [address], [place] [address] February, Paranoid schizophrenia F20.0 ; Posttraumatic stress disorder F43.10 ; Attention deficit hyperactivity disorder (ADHD), inattentive type, 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 and Borderline personality disorder F60.3 [facility] [address], [place] [address] February, Paranoid schizophrenia F20.0 ; Posttraumatic stress disorder F43.10 ; Attention deficit hyperactivity disorder (ADHD), inattentive type, 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 and Borderline personality disorder F60.3 [facility] [address], [place] [address] February, [facility] [address], [place] [address] February, Paranoid schizophrenia F20.0 [facility] [address], [place] [address] 4[address] February, Paranoid schizophrenia F20.0 [facility] [id number], [place] [address] February, Paranoid schizophrenia F20.0 ; Posttraumatic stress disorder F43.10 ; Attention deficit hyperactivity disorder (ADHD), inattentive type, 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 and Borderline personality disorder F60.3 [facility] [address] [place] [id number]- [address] Jan, Paranoid schizophrenia F20.0 ; Posttraumatic stress disorder F43.10 ; Attention deficit hyperactivity disorder (ADHD), inattentive type, 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 and Borderline personality disorder F60.3 [facility] [id number] [place] [address]- 7145 Jan, Paranoid schizophrenia F20.0 [facility] [address] [place] [address]- 8006 Jan, Paranoid schizophrenia F20.0 [facility] [address] [place] [address]- 9037 Jan, Paranoid schizophrenia F20.0 ; Posttraumatic stress disorder F43.10 ; Attention deficit hyperactivity disorder (ADHD), inattentive type, 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 and Borderline personality disorder F60.3 [facility] [address], [place] [address] Dec, [facility] [id number] [place] [address] 5096 Nov, Paranoid schizophrenia F20.0 ; Posttraumatic stress disorder F43.10 ; Attention deficit hyperactivity disorder (ADHD), inattentive type, 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 and Borderline personality disorder F60.3 [facility] [address], [place] [address]- [address] Nov, [facility] [address], [place] [address] 1676 Oct, Paranoid schizophrenia F20.0 [facility] [address], [place] [address] Oct, Paranoid schizophrenia F20.0 ; Posttraumatic stress disorder F43.10 ; Attention deficit hyperactivity disorder (ADHD), inattentive type, 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 ; Borderline personality disorder F60.3 and Other senior care ( 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 Z79.899 [facility] [address], [place] [address] Oct, [facility] [address], [place] [address] 0[address] Oct, [facility] [address], [place] [address] Sep, [facility] [address], [place] [address] Sep, Paranoid schizophrenia F20.0 ; Posttraumatic stress disorder F43.10 ; Attention deficit hyperactivity disorder (ADHD), inattentive type, 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10 ; Attention deficit hyperactivity disorder (ADHD), inattentive type, 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 and Borderline personality disorder F60.3 [facility] [id number], [place] [address] Aug, [facility] [address], [place] [address]- 2806 Jul, Paranoid schizophrenia F20.0 ; Posttraumatic stress disorder F43.10 ; Attention deficit hyperactivity disorder (ADHD), inattentive type, 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10 ; Attention deficit hyperactivity disorder (ADHD), inattentive type, 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 and Borderline personality disorder F60.3 [facility] [address], [place] [address] May, Other terminal manager (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 Z79.899 [facility] [address], [place] [address] May, [facility] [address], [place] [address]- 7060 May, [facility] [id number] [place] [address]- 2528 May, Attention deficit hyperactivity disorder (ADHD), inattentive type, 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 [facility] [address], [place] [address]- 1771 May, [facility] [address], [place] [address]- 2116 May, Attention deficit hyperactivity disorder (ADHD), inattentive type, 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 [facility] [id number], [place] [address]- 6676 May, Paranoid schizophrenia F20.0 ; Posttraumatic stress disorder F43.10 ; Attention deficit hyperactivity disorder (ADHD), inattentive type, 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 and Other terminal manager (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 Z79.899 [facility] [address], [place] [address]- 2627 Apr, Paranoid schizophrenia F20.0 [facility] [address], [place] [address]- 4014 Apr, Paranoid schizophrenia F20.0 ; Posttraumatic stress disorder F43.10 and Attention deficit hyperactivity disorder (ADHD), inattentive type, 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 [facility] [address], [place] [address]- 2[address] February, [facility] [id number], [place] [address]- 7108 February, Paranoid schizophrenia F20.0 ; Posttraumatic stress disorder F43.10 and Attention deficit hyperactivity disorder (ADHD), inattentive type, 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 [facility] [id number], [place] [address]- 1620 February, Paranoid schizophrenia F20.0 ; Posttraumatic stress disorder F43.10 and Attention deficit hyperactivity disorder (ADHD), inattentive type, 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 [facility] [address], [place] [address]- 5165 Jan, Paranoid schizophrenia F20.0 ; Posttraumatic stress disorder F43.10 and Attention deficit hyperactivity disorder (ADHD), inattentive type, 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 [facility] [address] [id number] [id number] Dec, Dental examination Z01.20 [facility] [address] [id number] [id number] Nov, Dental examination Z01.20 [facility] [address] [id number] [id number] Nov, Dental examination Z01.20 [facility] [address] [id number] [address] Nov, Dental caries K02.9 [facility] [address], [place] [address]- [address]345 13 Nov, 2016 High risk medication use Z79.899 [facility] [address], [place] [address]- 1773 Nov, Paranoid schizophrenia F20.0 ; Posttraumatic stress disorder F43.10 ; Attention deficit hyperactivity disorder (ADHD), inattentive type, 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 and Borderline personality disorder in adult F60.3 [facility] [address] [id number] Oct, Dental caries K02.9 [facility] [id number] [place] [address]759- 1440 Sep, Paranoid schizophrenia F20.0 ; Posttraumatic stress disorder F43.10 and Attention deficit hyperactivity disorder (ADHD), inattentive type, 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 [facility] [address], [place] [address]- 3013 Aug, Paranoid schizophrenia F20.0 ; Posttraumatic stress disorder F43.10 and Attention deficit hyperactivity disorder (ADHD), inattentive type, 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 [facility] [address], [place] [address] Aug, Strep throat J02.0 and Cough R05 [facility] [address] [place] [address]608- 7628 Aug, [facility] [address] [place] [address] 59783- 3370 Jul, Paranoid schizophrenia F20.0 ; Posttraumatic stress disorder F43.10 and Attention deficit hyperactivity disorder (ADHD), inattentive type, 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 [facility] [address], [place] [address]- 5628 Jul, [facility] [id number] [place] [address]62- 7356 Jun, Paranoid schizophrenia F20.0 ; Posttraumatic stress disorder F43.10 and Attention deficit hyperactivity disorder (ADHD), inattentive type, 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 [facility] [address] [id number] Jun, Dental examination Z01.20 [facility] [id number], [place] [address]- 6446 Jun, [facility] [id number] [place] [address]5822- 2726 May, Paranoid schizophrenia F20.0 [facility] [id number] [place] [address] 80920- 2370 May, Paranoid schizophrenia F20.0 ; Posttraumatic stress disorder F43.10 and Attention deficit hyperactivity disorder (ADHD), inattentive type, 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 [facility] [id number] [place] [address] 55603- 6238 May, [facility] [id number] [place] [address] 39985- 7386 May, Paranoid schizophrenia F20.0 [facility] [id number] [place] [address] 19230- 0752 May, [facility] [address] [place] [address] 04107- 1943 May, Paranoid schizophrenia F20.0 [facility] [id number] [place] [address]22- 7533 May, Schizoaffective disorder, unspecified F25.9 [facility] [address], [place] [address]- 1164 May, Schizoaffective disorder, unspecified F25.9 [facility] [id number], [place] [address]- 3466 May, [facility] [id number] [place] [address] 34232- 7358 May, Paranoid schizophrenia F20.0 [facility] [id number], [place] [address]- 1369 May, Paranoid schizophrenia F20.0 ; Posttraumatic stress disorder F43.10 and Attention deficit hyperactivity disorder (ADHD), inattentive type, 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 [facility] [address] [id number], [place] [address]- 0[address] Mar, [facility] [address] [facility] [id number], [place] [address]- 0151 Mar, Paranoid schizophrenia F20.0 ; Posttraumatic stress disorder F43.10 and Attention deficit hyperactivity disorder (ADHD), inattentive type, 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 [facility] [address] [facility] [id number], [place] [address]- 2586 Mar, Paranoid schizophrenia F20.0 [facility] [address] [facility] [id number] [place] [address]205- 3912 Mar, Paranoid schizophrenia F20.0 ; Attention deficit hyperactivity disorder (ADHD), inattentive type, 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 and Posttraumatic stress disorder F43.10 [facility] [id number], [place] [address]- 9178 Mar, [facility] [id number], [place] [address]- 6217 Mar, Paranoid schizophrenia F20.0 ; Posttraumatic stress disorder F43.10 and Attention deficit hyperactivity disorder (ADHD), inattentive type, 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 [facility] [id number], [place] [address]- 8104 February, [facility] [address] [facility] [id number], [place] [address]- 4442 February, [facility] [address] [facility] [id number], [place] [address]- 9945 February, [facility] [address] [facility] [id number], [place] [address]- 5031 February, [facility] [address] [facility] [id number], [place] [address]- 7968 Jan, Paranoid schizophrenia F20.0 [facility] [address] [facility] [id number] [id number] Jan, Dental examination Z01.20 [facility] [address] [id number][place] [id number] Jan, Dental caries K02.9 [facility] [address] [id number][place] [address] Jan, Dental examination Z01.20 [facility] [address] [id number][place] [address] Dec, Encounter for dental examination Z01.20 [facility] [id number] [place] [address] 69481- 4527 Dec, Paranoid schizophrenia F20.0 [facility] [address] [id number][place] [address] Dec, Dental examination Z01.20 [facility] [address], [place] [address]- 6925 Dec, [facility] [address] [place] [address] 47862- 8781 Dec, Paranoid schizophrenia F20.0 ; Posttraumatic stress disorder F43.10 and Attention deficit hyperactivity disorder (ADHD), inattentive type, 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 [facility] [address], [place] [address]- 6809 Nov, Schizoaffective disorder, unspecified F25.9 [facility] [id number], [place] [address]- 8076 Oct, Paranoid schizophrenia F20.0 [facility] [id number], [place] [address]- 2271 Oct, [facility] [id number], [place] [address]- 8515 Sep, Paranoid schizophrenia F20.0 ; Posttraumatic stress disorder F43.10 and Attention deficit hyperactivity disorder (ADHD), inattentive type, 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 [facility] [address] [place] [address] 69[address]- 9665 Sep, [facility] [address], [place] [address]- 6956 Sep, Paranoid schizophrenia F20.0 ; Posttraumatic stress disorder F43.10 and Attention deficit hyperactivity disorder (ADHD), inattentive type, 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 [facility] [address], [place] [address]- 7396 Aug, Paranoid schizophrenia F20.0 [facility] [address], [place] [address]- 4222 Aug, [facility] [id number] [place] [address] 98836- 8785 Aug, Posttraumatic stress disorder F43.10 ; Paranoid schizophrenia F20.0 and Attention deficit hyperactivity disorder (ADHD), inattentive type, 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 [facility] [address], [place] [address]- 7843 Jul, Bipolar disorder, unspecified F31.9 [facility] [address], [place] [address]- 4558 Jul, [facility] [address], [place] [address]- 2141 Jun, [facility] [address], [place] [address]- 5076 Jun, Schizoaffective disorder, chronic 295.72 ; Posttraumatic stress disorder 309.81 and Attention deficit disorder 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 314.00 [facility] [address], [place] [address]- 9787 May, [facility] [address], [place] [address]- 2296 May, [facility] [id number], [place] [address]- 6007 May, Schizoaffective disorder, chronic 295.72 ; Posttraumatic stress disorder 309.81 ; Attention deficit disorder 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 314.00 and Bipolar disorder, unspecified 296.80 [facility] [address], [place] [address]- 0076 Apr, Schizoaffective disorder, chronic 295.72 [facility] [id number], [place] [address]- 5385 Apr, [facility] [address], [place] [address]- 7570 Apr, Schizoaffective disorder, chronic 295.72 ; Posttraumatic stress disorder 309.81 and Attention deficit disorder 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 314.00 [facility] [address], [place] [address]- 9951 Mar, Disorganized schizophrenia, 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 [facility] [address], [place] [address]- 2110 Mar, [facility] [address], [place] [address]- 5847 Mar, [facility] [address], [place] [address]- 6424 Mar, [facility] [address], [place] [address]- 2184 Mar, [facility] [address], [place] [address]- 0806 February, Schizoaffective disorder, chronic 295.72 [facility] [address], [place] [address]- 5963 February, [facility] [id number], [place] [address]- 4633 February, Attention deficit disorder 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 314.00 ; Posttraumatic stress disorder 309.81 and Schizoaffective disorder, chronic 295.72 [facility] [address], [place] [address]- 6809 Jan, [facility] [id number] [place] [address]- 5215 14 Jan, 2015 [facility] [place] [facility] [address] [id number] [place] [address]- 1337 13 Jan, 2015 [facility] [place] [facility] [address] [id number] [place] [address]- 9247 25 Dec, 2014 [facility] [place] [facility] [address] [id number] [place] [address]- 2856 25 Dec, 2014 [facility] [place] [facility] [address] [id number] [place] [address]- 9755 Dec, [facility] [place] [facility] [address] [id number] [place] [address]- 8305 Dec, [facility] [place] [facility] [address] [id number] [place] [address] Dec, [facility] [place] [facility] [address] [id number] [place] [address] Dec, [facility] [place] [facility] [address] [id number] [place] [address] 8201 10 Dec, 2014 [facility] [place] [facility] [address] [id number] [place] [address] 2625 Dec, [facility] [place] [facility] [address] [id number] [place] [address] 2670 Nov, [facility] [place] [facility] [address] [id number] [place] [address]- 4734 Nov, 2014 [facility] [place] [facility] [address] [id number] [place] [address]- 2059 25 Nov, 2014 [facility] [place] [facility] [address] [id number] [place] [address] 25 Nov, 2014 [facility] [place] [facility] [address] [id number] [place] [address]- 0066 Nov, 2014 [facility] [place] [facility] [address] [id number] [place] [address]- 1625 Nov, [facility] [place] [facility] [address] [id number] [place] [address]- 6249 Nov, [facility] [place] [facility] [address] [id number] [place] [address]- 5896 Nov, [facility] [place] [facility] [address] [id number] [place] [address]- 9509 Nov, [facility] [place] [facility] [address] [id number] [place] [address]- 7846 Nov, [facility] [place] [facility] [address] [id number] [place] [address]- 4334 Oct, [facility] [place] [facility] [address] [id number] [place] [address]- 4912 Oct, [facility] [place] [facility] [address] [id number] [place] [address]- 3356 Oct, [facility] [place] [facility] [address] [id number] [place] [address]- 7271 Oct, [facility] [place] [facility] [address] [id number] [place] [address]- 7513 Oct, [facility] [place] [facility] [address] [id number] [place] [address]- 6728 Oct, [facility] [place] [facility] [address] [id number] [place] [address]- 3713 Oct, [facility] [place] [facility] [address] [id number] [place] [address]- 7758 Sep, [facility] [place] [facility] [address] [id number] [place] [address]- 9510 Sep, [facility] [place] [facility] [address] [id number] [place] [address]- 6600 Sep, [facility] [place] [facility] [address] [id number] [place] [address]- 5189 Sep, [facility] [place] [facility] [address] [id number] [place] [address]- 0034 Aug, [facility] [place] [facility] [address] [id number] [place] [address]- 3988 Aug, [facility] [place] [facility] [address] [id number] [place] [address]- 1203 Aug, [facility] [place] [facility] [address] [id number] [place] [address]- 6694 Aug, [facility] [place] [facility] [address] [id number] [place] [address]- 5636 Aug, [facility] [place] [facility] [address] [id number] [place] [address]- 9761 Aug, [facility] [place] [facility] [address] [id number] [place] [address]- 7957 Jul, [facility] [place] [facility] [address] [id number] [place] [address]- 7702 Jul, [facility] [place] [facility] [address] [id number] [place] [address]- 1045 Jul, [facility] [place] [facility] [address] [id number] [place] [address]- 5480 24 Jul, 2014 [facility] [place] [facility] [address] [id number] [place] [address]- 7732 Jul, [facility] [place] [facility] [address] [id number] [place] [address]- 9543 15 Jul, 2014 [facility] [place] [facility] [address] [id number] [place] [address]- 6460 Jun, [facility] [place] [facility] [address] [id number] [place] [address]- 9949 27 Jun, 2014 [facility] [place] [facility] [address] [id number] [place] [address]- 5934 Jun, [facility] [place] [facility] [address] [id number] [place] [address]- 6252 Jun, [facility] [place] [facility] [address] [id number] [place] [address]- 7632 Jun, 2013 [facility] [place] [facility] [address] [id number] [place] [address]- 9336 Jun, 2013 [facility] [place] [facility] [address] [id number] [place] [address]- 4449 Jun, 2013 [facility] [place] [facility] [address] [id number] [place] [address]- 2176 Jun, 2013 [facility] [place] [facility] [address] [id number] [place] [address]- 7375 Jun, 2013 [facility] [place] [facility] [address] [id number] [place] [address]- 5889 Jun, 2013 [facility] [place] [facility] [address] [id number] [place] [address]- 0148 Jun, [facility] [place] [facility] [address] [id number] [place] [address]- 4558 May, [facility] [place] [facility] [address] [id number] [place] [address]- 3340 May, [facility] [place] [facility] [address] [id number] [place] [address]- 3679 May, [facility] [place] [facility] [address] [id number] [place] [address]- 4434 May, [facility] [place] [facility] [address] [id number] [place] [address]- 8597 May, [facility] [place] [facility] [address] [id number] [place] [address]- 4145 May, [facility] [place] [facility] [address] [id number] [place] [address]- 4372 May, [facility] [place] [facility] [address] [id number] [place] [address]- 1830 May, [facility] [place] [facility] [address] [id number], [place] [address]- 8729 May, [facility] [place] [facility] [address] [id number] [place] [address]- 0936 May, [facility] [place] [facility] [address] [id number] [place] [address]- 5958 Apr, [facility] [place] [facility] [address] [id number] [place] [address]- 5706 Apr, [facility] [place] [facility] [address] [id number] [place] [address]- 0476 Apr, [facility] [place] [facility] [address] [id number] [place] [address]- 9058 Apr, [facility] [place] [facility] [address] [id number] [place] [address]- 5654 Apr, [facility] [place] [facility] [address] [id number] [place] [address]- 1012 Apr, [facility] [place] [facility] [address] [id number] [place] [address]- 1355 Apr, [facility] [place] [facility] [address] [id number] [place] [address]- 3015 Apr, [facility] [place] [facility] [address] [id number] [place] [address]- 7700 Apr, [facility] [place] [facility] [address] [id number] [place] [address]- 0518 Apr, [facility] [place] [facility] [address] [id number] [place] [address]- 5248 Mar, [facility] [place] [facility] [address] [id number] [place] [address]- 4552 Mar, [facility] [place] [facility] [address] [id number] [place] [address]- 7070 Mar, [facility] [place] [facility] [address] [id number] [place] [address]- 9607 Mar, [facility] [place] [facility] [address] [id number] [place] [address]- 8700 20 Mar, 2014 [facility] [place] [facility] [address] [id number] [place] [address]- 6745 Mar, [facility] [place] [facility] [address] [id number] [place] [address]- 0801 18 Mar, 2014 [facility] [place] [facility] [address] [id number] [place] [address]- 8512 16 Mar, 2014 [facility] [place] [facility] [address] [id number] [place] [address]- 5104 16 Mar, 2014 [facility] [place] [facility] [address] [id number] [place] [address]- 9821 Mar, [facility] [place] [facility] [address] [id number] [place] [address]- 7126 Mar, [facility] [place] [facility] [address] [id number] [place] [address]- 2966 Mar, [facility] [place] [facility] [address] [id number] [place] [address]- 7232 Mar, [facility] [place] [facility] [address] [id number] [place] [address]- 3553 Mar, [facility] [place] [facility] [address] [id number] [place] [address]- 7953 Mar, [facility] [place] [facility] [address] [id number] [place] [address]- 5479 Mar, [facility] [place] [facility] [address] [id number] [place] [address]- 0348 09 Mar, 2014 [facility] [place] [facility] [address] [id number] [place] [address]- 7371 Mar, [facility] [place] [facility] [address] [id number] [place] [address]- 9287 04 Mar, 2014 [facility] [place] [facility] [address] [id number] [place] [address]- 8407 Mar, [facility] [address] [id number] [place] [address]- 7500 February, [facility] [place] [facility] [address] [id number] [place] [address]- 3532 February, [facility] [place] [facility] [address] [id number] [place] [address]- 7096 February, [facility] [place] [facility] [address] [id number] [place] [address]- 2104 February, [facility] [place] [facility] [address] [id number] [place] [address]- 8027 February, [facility] [place] [facility] [address] [id number] [place] [address]- 8826 February, [facility] [place] [facility] [address] [id number] [place] [address]- 6939 February, [facility] [place] [facility] [address] [id number] [place] [address]- 8727 February, [facility] [place] [facility] [address] [id number] [place] [address]- 1621 February, [facility] [place] [facility] [address] [id number] [place] [address]- 7497 February, [facility] [place] [facility] [address] [id number] [place] [address]- 7938 February, [facility] [place] [facility] [address] [id number] [place] [address]- 7251 February, [facility] [place] [facility] [address] [id number] [place] [address]- 7749 February, [facility] [place] [facility] [address] [id number] [place] [address]- 3944 February, [facility] [place] [facility] [address] [id number] [place] [address]- 3334 February, [facility] [place] [facility] [address] [id number] [place] [address]- 2792 February, [facility] [place] [facility] [address] [id number] [place] [address]- 5305 February, [facility] [place] [facility] [address] [id number] [place] [address]- 3483 February, [facility] [place] [facility] [address] [id number] [place] [address]- 4053 February, [facility] [place] [facility] [address] [id number] [place] [address]- 9801 February, [facility] [place] [facility] [address] [id number] [place] [address]- 1399 February, [facility] [place] [facility] [address] [id number] [place] [address]- 6672 Jan, [facility] [place] [facility] [address] [id number] [place] [address]- 9997 Jan, [facility] [place] [facility] [address] [id number] [place] [address]- 6161 Jan, [facility] [place] [facility] [address] [id number] [place] [address]- 8263 Jan, [facility] [place] [facility] [address] [id number] [place] [address]- 5738 Jan, [facility] [place] [facility] [address] [id number] [place] [address]- 9603 Jan, [facility] [place] [facility] [address] [id number] [place] [address]- 0324 Jan, [facility] [place] [facility] [address] [id number] [place] [address]- 1114 Jan, [facility] [place] [facility] [address] [id number] [place] [address]- 2876 Dec, [facility] [place] [facility] [address] [id number] [place] [address]- 4089 Dec, [facility] [place] [facility] [address] [id number] [place] [address]- 8276 20 Dec, 2013 [facility] [place] [facility] [address] [id number] [place] [address]- 2759 19 Dec, 2013 [facility] [place] [facility] [address] [id number] [place] [address]- 2251 19 Dec, 2013 [facility] [place] [facility] [address] [id number] [place] [address]- 7559 15 Dec, 2013 [facility] [place] [facility] [address] [id number] [place] [address]- 6926 15 Dec, 2013 [facility] [place] [facility] [address] [id number] [place] [address]- 9692 11 Dec, 2013 [facility] [place] [facility] [address] [id number] [place] [address]- 2221 10 Dec, 2013 [facility] [place] [facility] [address] [id number] [place] [address]- 8679 10 Dec, 2013 [facility] [place] [facility] [address] [id number] [place] [address]- 3796 18 Nov, 2013 [facility] [place] [facility] [address] [id number] [place] [address]- 3600 Nov, [facility] [place] [facility] [address] [id number] [place] [address]- 9446 Nov, [facility] [place] [facility] [address] [id number] [place] [address]- 8950 Nov, [facility] [place] [facility] [address] [id number] [place] [address]- 3919 Nov, [facility] [place] [facility] [address] [id number] [place] [address]- 4736 Oct, [facility] [place] [facility] [address] [id number] [place] [address]- 4802 Oct, [facility] [place] [facility] [address] [id number], [place] [address]- 6843 Oct, [facility] [address] [id number] [place] [address]- 8258 Sep, [facility] [place] [facility] [address] [id number] [address]275 Sep, [facility] [place] [facility] [address] [id number] [place] [address]- 6771 Sep, [facility] [place] [facility] [address] [id number] [place] [address]- 5950 Sep, [facility] [place] [facility] [address] [id number] [place] [address]- 5610 Aug, [facility] [place] [facility] [address] [id number] [place] [address]- 3828 Aug, [facility] [address] [id number], [place] [address]- 8683 Jul, [facility] [place] [facility] [address] [id number], [place] [address]- 4175 Jul, [facility] [place] [facility] [address] [id number] [place] [address]- 2612 Jul, [facility] [place] [facility] [address] [id number], [place] [address]- 7976 Jul, [facility] [place] [facility] [address] [id number], [place] [address]- 6094 Jul, [facility] [place] [facility] [address] [id number], [place] [address]- 8035 Jun, [facility] [place] [facility] [address] [id number], [place] [address]- 1645 25 Jun, 2012 [facility] [place] [facility] [address] [id number], [place] [address]- 8546 19 Jun, 2012 [facility] [place] [facility] [address] [id number], [place] [address]- 9923 18 Jun, 2012 [facility] [place] [facility] [address] [id number] [place] [address]- 7788 16 Jun, 2013 [facility] [address] [id number] [place] [address]- 9346 12 Jun, 2013 [facility] [place] [facility] [address] [id number] [place] [address] 2546 11 Jun, 2013 [facility] [place] [facility] [address] [id number] [place] [address]- 3732 30 May, 2013 [facility] [place] [facility] [address] [id number] [place] [address]- 1525 May, [facility] [place] [facility] [address] [id number] [place] [address]- 3191 Apr, [facility] [place] [facility] [address] [id number] [place] [address]- 2899 Apr, [facility] [place] [facility] [address] [id number] [place] [address]- 1300 Apr, [facility] [address] [id number] [place] [address]- 2135 Mar, [facility] [place] [facility] [address] [id number] [place] [address]- 9201 Mar, [facility] [place] [facility] [address] [id number] [place] [address]- 8753 February, [facility] [place] [facility] [address] [id number] [place] [address]- 2867 February, [facility] [place] [facility] [address] [id number] [place] [address]- 8526 February, [facility] [place] [facility] [address] [id number] [place] [address]- 2546 February, [facility] [place] [facility] [address] [id number] [place] [address]- 0019 Jan, [facility] [place] [facility] [address] [id number] [place] [address]- 3956 17 Jan, 2013 [facility] [address] [id number] [place] [address]- 1311 16 Jan, 2013 [facility] [place] [facility] [address] [id number] [place] [address]- 7249 29 Dec, 2012 [facility] [place] [facility] [address] [id number] [place] [address]- 4601 Dec, [facility] [place] [facility] [address] [id number] [place] [address]- 0004 Dec, [facility] [place] [facility] [address] [id number] [place] [address]- 3236 Dec, [facility] [place] [facility] [address] [id number] [place] [address]- 2317 Nov, [facility] [place] [facility] [address] [id number] [place] [address]- 7637 Nov, [facility] [place] [facility] [address] [id number] [place] [address]- 2018 Oct, [facility] [place] [facility] [address] [id number] [place] [address]- 5417 Oct, [facility] [place] [facility] [address] [id number] [place] [address]- 5849 Oct, [facility] [place] [facility] [address] [id number], [place] [address]- 5532 Oct, [facility] [place] [facility] [address] [id number], [place] [address]- 3464 Aug, [facility] [place] [facility] [address] [id number] [place] [address]- 3216 Aug, [facility] [place] [facility] [address] [id number] [place] [address]- 2585 Jun, [facility] [place] [facility] [address] [id number] [place] [address]- 5528 May, [facility] [place] [facility] [address] [id number] [place] [address] 2546 May, [facility] [address] [id number] [place] [address]- 4800 Apr, [facility] [address] [id number] [place] [address] 2546 Apr, [facility] [address] [id number] [place] [address]- 8331 Apr, [facility] [address] [id number] [place] [address]- 1791 Mar, [facility] [address] [id number] [place] [address]- 3872 Mar, [facility] [address] [id number] [place] [address]- 4476 Mar, [facility] [address] [id number] [place] [address] Mar, [facility] [address] [id number] [place] [address] Mar, [facility] [address] [id number] [place] [address] February, [facility] [address] [id number] [place] [address] February, [facility] [address] [id number] [place] [address] February, [facility] [address] [id number] [place] [address] February, [facility] [place] [facility] [address] [id number] [place] [address] February, [facility] [address] [id number] [place] [address] February, [facility] [address] [id number] [place] [address] February, [facility] [address] [id number] [place] [address] 25 Jan, 2012 [facility] [place] [facility] [address] [id number] [place] [address] 18 Jan, 2012 [facility] [place] [facility] [address] [id number] [place] [address]666 17 Jan, 2012 [facility] [place] [facility] [address] [id number] [place] [address] 13 Jan, 2012 [facility] [place] [facility] [address] [id number] [place] [address] 10 Jan, 2012 [facility] [place] [facility] [address] [id number] [place] [address]- [address]46 04 Jan, 2012 [facility] [place] [facility] [address] [id number] [place] [address] 30 Dec, 2011 [facility] [place] [facility] [address] [id number] [place] [address] 24 Dec, 2011 [facility] [place] [facility] [address] [id number] [place] [address] Dec, [facility] [place] [facility] [address] [id number] [place] [address] Dec, [facility] [place] [facility] [address] [id number] [place] [address] Dec, [facility] [place] [facility] [address] [id number] [place] [address]693 28 Nov, 2011 [facility] [place] [facility] [address] [id number] [place] [address] Nov, [facility] [place] [facility] [address] [id number] [place] [address]676 25 Nov, 2011 [facility] [place] [facility] [address] [id number] [place] [address] 2806 14 Nov, 2011 [facility] [place] [facility] [address] [id number] [place] [address] 10 Nov, 2011 [facility] [address] [id number] [place] [address] Nov, [facility] [address] [id number] [place] [address] 74[address] Oct, [facility] [address] [id number] [place] [address] Oct, [facility] [address] [id number] [place] [address] Oct, [facility] [address] [id number] [place] [address] Oct, [facility] [address] [id number] [place] [address] Oct, [facility] [address] [id number] [place] [address] Sep, [facility] [address] [id number] [place] [address] Sep, [facility] [address] [id number] [place] [address] Sep, [facility] [address] [id number] [place] [address]37 14 Sep, 2011 [facility] [address] [id number] [place] [address] 2546 14 Sep, 2011 [facility] [address] [id number] [place] [address] 13 Sep, 2011 [facility] [place] [facility] [address] [id number] [place] [address] 2544 12 Sep, 2011 [facility] [place] [facility] [address] [id number] [place] [address]- [address]46 09 Sep, 2011 [facility] [address] [id number] [place] [address]361 Sep, [facility] [place] [facility] [address] [id number] [place] [address]48 Aug, [facility] [place] [facility] [address] [id number] [place] [address] 48[address] Aug, [facility] [place] [facility] [address] [id number] [place] [address] 65[address] Aug, [facility] [place] [facility] [address] [id number] [place] [address]- 89[address] Aug, [facility] [place] [facility] [address] [id number] [place] [address]- 8634 Aug, [facility] [place] [facility] [address] [id number] [place] [address]298 Aug, [facility] [place] [facility] [address] [id number] [place] [address]- [address]243 Aug, [facility] [place] [facility] [address] [id number] [place] [address]- 8832 Aug, [facility] [place] [facility] [address] [id number] [place] [address] 75[address] Aug, [facility] [place] [facility] [address] [id number] [place] [address]- 2536 Aug, [facility] [place] [facility] [address] [id number] [place] [address]- 0089 Aug, [facility] [place] [facility] [address] [id number], [place] [address] Aug, [facility] [place] [facility] [address] [id number] [place] [address] Jul, [facility] [place] [facility] [address] [id number] [place] [address]23 Jul, [facility] [place] [facility] [address] [id number] [place] [address] 95[address] Jul, [facility] [place] [facility] [address] [id number], [place] [address] Jul, [facility] [id number], [place] [address] Jul, [facility] [address] [facility] [id number], [place] [address] Jul, [facility] [id number], [place] [address] Jul, [facility] [address] [id number], [place] [address] Jul, [facility] [address] [id number] [address] Jul, [facility] [id number] [address] Jul, [facility] [id number] [place] [address] Nov, [facility] [id number] [address] Aug, [facility] [id number] [address] Aug, [facility] [id number] [place] [address] Aug, [facility] [id number] [address] Aug, [facility] [id number], [place] [address] Jul, IMMUNIZATIONS No Known Immunizations SOCIAL HISTORY Never Assessed REASON FOR VISIT LIANA f/u Mila PLAN OF CARE Activity Details Follow Up 2 Weeks Reason:LIANA f/u VITAL SIGNS Height 65.75 in 2018-02-13 Weight 196.4 lbs 2018-02-13 Heart Rate 92 bpm 2018-02-13 Respiratory Rate 22 2018-02-13 BMI 31.94 kg/m2 2018-02-13 Blood pressure systolic 108 mmHg 2018-02-13 Blood pressure diastolic 66 mmHg 2018-02-13 MEDICATIONS Medication Instructions Dosage Frequency Start Date End Date Duration Status Abilify 30 MG Orally Once a day 1 tablet 24h Active Trintellix 20 mg orally Once a day 1 tablet 24h Active Ativan 1 MG Orally 2 times a day as needed 1 tablet Active Trileptal 300 MG Orally Twice a day 0.5 tablet 12h Jan, Active Hydrocodone-Acetaminophen 10-325 mg 1 Tablet by Oral route every 8 hours PRN pain Jul, Active Seroquel 200 MG Orally Once a day at bedtime for sleep 1 tablet 10 Aug, 2017 Active NovoLog Mix 70/30 (70-30) 100 UNIT/ML Subcutaneous 3 times a day 27 units 8h Not-Taking Topamax 100 mg Orally Twice a day 1.5 tablet 12h Active Insulin Detemir 100 unit/mL (3 mL) Subcutaneous 2 times a day 35 units by Subcutaneous route 1 time per day qHS 12h February, Active Intuniv 1 MG Orally 2 times a day 1 tablet 12h Active Metformin HCl 1000 MG Orally 2 times a day 1 tablet 12h Active Levothyroxine Sodium 75 MCG Orally Once a day 1 tablet on an empty stomach in the morning 24h Active RESULTS No Results PROCEDURES Procedure Date Ordered Result Body Site [facility] VISIT ESTABLISHED PATIENT February 13, 2018 INSTRUCTIONS MEDICATIONS ADMINISTERED No Known Medications [...]
--- OUTSIDE RECORDS SUMMARY | 2018-08-15 20:30 | XMS REPORT ---
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 94694134 Problem Schizoaffective disorder, depressive type F25.1 Active 02026594 Problem Borderline personality disorder F60.3 Active 96276005 Problem Attention deficit hyperactivity disorder (ADHD), inattentive type, 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 87008835 Problem Schizoaffective disorder, unspecified F25.9 Active 98225224 Problem High risk medication use Z79.899 Active 076538872 Problem Posttraumatic stress disorder F43.10 Active 76203839 Problem Obsessive-compulsive disorders 300.3 Active 221593553 Problem Generalized anxiety disorder 300.02 Active 20836066 Problem Attention deficit disorder 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 314.00 Active 27416656 Problem Bipolar disorder, unspecified 296.80 Active 10978586 Problem Posttraumatic stress disorder 309.81 Active 82552666 Problem Paranoid schizophrenia, unspecified condition 295.30 Active 44900810 ALLERGIES No Information ENCOUNTERS Encounter Location Date Diagnosis [facility] [address] [facility] [id number] [address] May, [facility] [address], [place] [address] May, 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 [address] [facility] [id number], [place] [address] Apr, [facility] [address] 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 [address] [id number], [place] [address] Apr, [facility] [id number] [place] [address] 48574- 8170 Apr, Schizoaffective disorder, depressive type F25.1 and Borderline personality disorder F60.3 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 [address] [id number], [place] [address] Apr, 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 [address] [id number], [place] [address] Apr, [facility] [address] [id number], [place] [address] 9018 Mar, Paranoid schizophrenia F20.0 [facility] [address] [id number], [place] [address] Mar, 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 [address], [place] [address] February, Paranoid schizophrenia F20.0 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 [address], [place] [address] 7[address] February, [facility] [address], [place] [address] 9547 February, Paranoid schizophrenia F20.0 [facility] [address], [place] [address] 1513 February, Paranoid schizophrenia F20.0 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 [address] [id number], [place] [address] 9062 Jan, Paranoid schizophrenia F20.0 [facility] [address], [place] [address] 0886 Jan, Paranoid schizophrenia F20.0 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 [id number] [place] [address]60- 0370 Dec, 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 [address], [place] [address] 16[address] Nov, [facility] [id number] [place] [address] 48184- 1020 Oct, Paranoid schizophrenia F20.0 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 [address], [place] [address] 15[address] Oct, [facility] [address], [place] [address] 3189 Oct, [facility] [id number] [place] [address] 58958- 5548 Sep, 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 [address], [place] [address]- 0380 Sep, Paranoid schizophrenia F20.0 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 [address], [place] [address] 1542 Aug, 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 [address] [id number], [place] [address]- 1733 Jul, Paranoid schizophrenia F20.0 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 [address] [id number], [place] [address]- 8885 May, Other intermediate (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 Z79.899 [facility] [address], [place] [address]83 May, [facility] [address] [id number], [place] [address] 5[address] May, 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 [address], [place] [address]- 9952 May, 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 [address] [id number], [place] [address]- 9585 Apr, Paranoid schizophrenia F20.0 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 [address] [id number], [place] [address] February, 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 [address], [place] [address]- 6048 13 Nov, 2016 High risk medication use Z79.899 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 [id number] [place] [address] 95082- 9115 Aug, 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 [id number] [place] [address] 90370- 5890 Jul, 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 [id number] [place] [address] 89560- 9086 Jun, [facility] [id number] [place] [address] 39263- 8241 May, Paranoid schizophrenia F20.0 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 [address], [place] [address]- 5841 May, [facility] [id number] [place] [address] 53216- 1116 May, Paranoid schizophrenia F20.0 [facility] [id number] [place] [address] 24388- 0616 May, [facility] [id number] [place] [address] 09862- 5807 May, Paranoid schizophrenia F20.0 [facility] [id number] [place] [address] 30436- 2943 May, Schizoaffective disorder, unspecified F25.9 [facility] [id number] [place] [address] 05115- 9533 May, Schizoaffective disorder, unspecified F25.9 [facility] [id number] [place] [address] 86015- 2981 May, [facility] [id number] [place] [address] 99943- 8522 May, Paranoid schizophrenia F20.0 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 [address] [place] [address] 84549- 9262 Mar, 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 [address] [facility] [id number], [place] [address]- 3558 February, [facility] [address] [id number], [place] [address]- 4707 February, [facility] [address] [facility] [id number], [place] [address]- 6746 February, [facility] [address] [facility] [id number], [place] [address]- 6734 February, [facility] [address] [facility] [id number], [place] [address]- 0748 Jan, Paranoid schizophrenia F20.0 [facility] [address] [id number] [id number] Jan, Dental examination Z01.20 [facility] [address] [id number] [id number] Jan, Dental caries K02.9 [facility] [address] [id number] [address] Jan, Dental examination Z01.20 [facility] [address] [address] 30 Dec, 2015 Encounter for dental examination Z01.20 [facility] [address] [address]- 5059 30 Dec, 2015 Paranoid schizophrenia F20.0 [facility] [address] [id number] [address] 15 Dec, [address] [facility] [address], [place] [address]- 6464 07 Dec, 2015 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 [address], [place] [address]- 9605 Nov, Schizoaffective disorder, unspecified F25.9 [facility] [address], [place] [address]- 8007 Oct, Paranoid schizophrenia F20.0 [facility] [address], [place] [address]- 9050 Oct, 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 [address], [place] [address]- 0636 Sep, 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 [address], [place] [address]- 7575 Aug, Paranoid schizophrenia F20.0 [facility] [address], [place] [address]- 2437 Aug, 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 [id number] [place] [address] 78242- 3712 Jul, Bipolar disorder, unspecified F31.9 [facility] [id number] [place] [address] 809948- 4671 Jul, [facility] [id number] [place] [address] 57688- 0153 Jun, [facility] [id number] [place] [address] 98593- 8518 Jun, Schizoaffective disorder, chronic 295.72 ; Posttraumatic stress disorder 309.81 and Attention deficit disorder 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 314.00 [facility] [id number] [place] [address] 24981- 4423 May, [facility] [id number] [place] [address] 34959- 7631 May, [facility] [address] [place] [address] 14038- 1148 May, Schizoaffective disorder, chronic 295.72 ; Posttraumatic stress disorder 309.81 ; Attention deficit disorder 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 314.00 and Bipolar disorder, unspecified 296.80 [facility] [address] [place] [address]- 3376 Apr, Schizoaffective disorder, chronic 295.72 [facility] [id number] [place] [address] 85443- 7860 Apr, [facility] [address] [id number] [address]- 8055 Apr, Schizoaffective disorder, chronic 295.72 ; Posttraumatic stress disorder 309.81 and Attention deficit disorder 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 314.00 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 [id number] [place] [address] 56961- 3713 Mar, [facility] [id number] [place] [address] 37796- 2464 Mar, [facility] [id number] [place] [address] 04499- 2032 Mar, [facility] [id number] [place] [address] 56131- 9758 Mar, [facility] [id number] [place] [address] 00953- 0223 February, Schizoaffective disorder, chronic 295.72 [facility] [id number] [place] [address] 95439- 3253 February, [facility] [id number] [place] [address] 89143- 8197 February, Attention deficit disorder 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 314.00 ; Posttraumatic stress disorder 309.81 and Schizoaffective disorder, chronic 295.72 [facility] [address], [place] [address]- 7968 Jan, [facility] [address], [place] [address]- 7571 Jan, [facility] [id number] [place] [address] 21881- 8598 Jan, [facility] [address], [place] [address]- 3677 Dec, [facility] [id number] [place] [address] 34074- 0651 Dec, [facility] [place] [facility] [address] [id number] [place] [address]- 2391 Dec, [facility] [place] [facility] [address] [facility] [id number] [place] [address]- 3680 Dec, [facility] [place] [facility] [address] [facility] [id number] [place] [address]- 5514 Dec, [facility] [place] [facility] [address] [facility] [id number] [place] [address]- 5858 Dec, [facility] [place] [facility] [address] [id number] [place] [address]- 4470 Dec, [facility] [place] [facility] [address] [facility] [id number] [place] [address] Dec, [facility] [place] [facility] [address] [facility] [id number] [place] [address] Nov, 2014 [facility] [place] [facility] [address] [facility] [id number] [place] [address] Nov, 2014 [facility] [place] [facility] [address] [facility] [id number] [place] [address] Nov, 2014 [facility] [place] [facility] [address] [facility] [id number] [place] [address] Nov, 2014 [facility] [place] [facility] [address] [facility] [id number] [place] [address] Nov, 2014 [facility] [place] [facility] [address] [facility] [id number] [place] [address] Nov, 2014 [facility] [place] [facility] [address] [facility] [id number] [place] [address] Nov, 2014 [facility] [place] [facility] [address] [facility] [id number] [place] [address] Nov, 2014 [facility] [place] [facility] [address] [id number] [place] [address] Nov, [facility] [place] [facility] [address] [id number] [place] [address] 5471 Nov, [facility] [place] [facility] [address] [id number] [place] [address] 2413 Oct, [facility] [place] [facility] [address] [id number] [place] [address]- 0614 Oct, [facility] [place] [facility] [address] [id number] [place] [address]- 0691 Oct, [facility] [place] [facility] [address] [id number] [place] [address]- 7499 Oct, [facility] [place] [facility] [address] [id number] [place] [address]- 9700 Oct, [facility] [place] [facility] [address] [id number] [place] [address]- 2843 Oct, [facility] [place] [facility] [address] [id number] [place] [address] 4425 Oct, [facility] [place] [facility] [address] [id number] [place] [address]- 1459 Sep, [facility] [place] [facility] [address] [id number] [place] [address]- 4744 17 Sep, 2014 [facility] [place] [facility] [address] [id number] [place] [address]- 1800 15 Sep, 2014 [facility] [place] [facility] [address] [id number] [place] [address]- 1535 15 Sep, 2014 [facility] [place] [facility] [address] [id number] [place] [address]- 6329 20 Aug, 2014 [facility] [place] [facility] [address] [id number] [place] [address]- 9226 20 Aug, 2014 [facility] [place] [facility] [address] [id number] [place] [address]- 9641 14 Aug, 2014 [facility] [place] [facility] [address] [id number] [place] [address]- 9142 14 Aug, 2014 [facility] [place] [facility] [address] [id number] [place] [address]- 0075 Aug, [facility] [place] [facility] [address] [id number] [place] [address]- 3852 Aug, [facility] [place] [facility] [address] [id number] [place] [address]- 1193 Jul, [facility] [place] [facility] [address] [id number] [place] [address]- 0463 29 Jul, 2014 [facility] [place] [facility] [address] [id number] [place] [address]- 2764 Jul, [facility] [place] [facility] [address] [id number] [place] [address]- 0510 Jul, [facility] [place] [facility] [address] [id number] [place] [address]- 4255 Jul, [facility] [place] [facility] [address] [id number] [place] [address]- 1089 15 Jul, 2014 [facility] [place] [facility] [address] [id number] [place] [address]- 7533 27 Jun, 2014 [facility] [place] [facility] [address] [id number] [place] [address]- 6033 27 Sep, 2013 [facility] [place] [facility] [address] [id number] [place] [address]- 6873 26 Jun, 2013 [facility] [place] [facility] [address] [id number], [place] [address]- 2544 26 Sep, 2013 [facility] [place] [facility] [address] [id number] [place] [address]- 5103 26 Sep, 2013 [facility] [place] [facility] [address] [id number] [place] [address]- 7005 26 Sep, 2013 [facility] [place] [facility] [address] [id number] [place] [address]- 4148 16 Sep, 2013 [facility] [place] [facility] [address] [id number] [place] [address]- 5435 16 Jun, 2013 [facility] [place] [facility] [address] [id number] [place] [address]- 2926 Jun, [facility] [place] [facility] [address] [id number] [place] [address] 2546 Jun, [facility] [place] [facility] [address] [id number] [place] [address]- 9071 Jun, [facility] [place] [facility] [address] [id number] [place] [address]- 5551 May, [facility] [place] [facility] [address] [id number] [place] [address]- 0938 May, [facility] [place] [facility] [address] [id number] [place] [address]- 8635 May, [facility] [place] [facility] [address] [id number] [place] [address]- 4008 May, [facility] [place] [facility] [address] [id number] [place] [address]- 9083 May, [facility] [place] [facility] [address] [id number] [place] [address]- 1034 May, [facility] [place] [facility] [address] [id number] [place] [address]- 3409 May, [facility] [place] [facility] [address] [id number] [place] [address]- 5748 May, [facility] [place] [facility] [address] [id number] [place] [address]- 1340 May, [facility] [place] [facility] [address] [id number] [place] [address]- 2549 May, [facility] [place] [facility] [address] [id number] [place] [address]- 5096 Apr, [facility] [place] [facility] [address] [id number] [place] [address]- 8006 Apr, [facility] [place] [facility] [address] [id number] [place] [address]- 1414 Apr, [facility] [place] [facility] [address] [id number] [place] [address]- 8867 Apr, [facility] [place] [facility] [address] [id number] [place] [address]- 5788 Apr, [facility] [place] [facility] [address] [id number] [place] [address]- 7485 Apr, [facility] [place] [facility] [address] [id number] [place] [address]- 3134 Apr, [facility] [place] [facility] [address] [id number] [place] [address]- 6017 Apr, [facility] [place] [facility] [address] [id number] [place] [address]- 4007 Apr, [facility] [place] [facility] [address] [id number] [place] [address]- 2284 Apr, [facility] [place] [facility] [address] [id number] [place] [address]- 9513 Mar, [facility] [place] [facility] [address] [id number] [place] [address]- 8579 Mar, [facility] [place] [facility] [address] [id number] [place] [address]- 2600 Mar, [facility] [place] [facility] [address] [id number], [place] [address]- 1522 Mar, [facility] [place] [facility] [address] [id number] [place] [address]- 9463 Mar, [facility] [place] [facility] [address] [id number] [place] [address]- 0666 Mar, [facility] [place] [facility] [address] [id number] [place] [address]- 2043 Mar, [facility] [place] [facility] [address] [id number] [place] [address]- 3683 16 Mar, 2014 [facility] [place] [facility] [address] [id number] [place] [address]- 7685 16 Mar, 2014 [facility] [place] [facility] [address] [id number] [place] [address]- 2958 Mar, [facility] [place] [facility] [address] [id number] [place] [address]- 1888 Mar, [facility] [place] [facility] [address] [id number] [place] [address]- 6998 Mar, [facility] [place] [facility] [address] [id number] [place] [address]- 0516 Mar, [facility] [place] [facility] [address] [id number] [place] [address]- 7354 Mar, [facility] [place] [facility] [address] [id number] [place] [address]- 1310 Mar, [facility] [place] [facility] [address] [id number] [place] [address]- 7465 Mar, [facility] [place] [facility] [address] [id number] [place] [address]- 8095 Mar, [facility] [place] [facility] [address] [id number] [place] [address]- 5842 Mar, [facility] [place] [facility] [address] [id number] [place] [address]- 4885 Mar, [facility] [place] [facility] [address] [id number] [place] [address]- 8353 Mar, [facility] [place] [facility] [address] [id number] [place] [address]- 9196 February, [facility] [place] [facility] [address] [id number] [place] [address]- 1976 February, [facility] [place] [facility] [address] [id number] [place] [address]- 0871 February, [facility] [place] [facility] [address] [id number] [place] [address]- 9361 February, [facility] [address] [id number] [place] [address]- 8141 February, [facility] [address] [id number] [place] [address]- 8516 February, [facility] [address] [id number] [place] [address]- 6791 February, [facility] [address] [id number] [place] [address]- 0463 February, [facility] [address] [id number] [place] [address]- 6852 February, [facility] [address] [id number] [place] [address]- 3669 February, [facility] [address] [id number] [place] [address]- 5494 February, [facility] [address] [id number] [place] [address]- 5088 February, [facility] [address] [id number] [place] [address]- 8607 February, [facility] [address] [id number] [place] [address]- 1416 February, [facility] [address] [id number] [place] [address]- 9049 February, [facility] [place] [facility] [address] [id number] [place] [address]- 0678 February, [facility] [place] [facility] [address] [id number] [place] [address]- 0943 February, [facility] [place] [facility] [address] [id number] [place] [address]- 5202 February, [facility] [place] [facility] [address] [id number] [place] [address]- 3069 February, [facility] [place] [facility] [address] [id number] [place] [address]- 4740 February, [facility] [place] [facility] [address] [id number] [place]46 February, [facility] [place] [facility] [address] [id number] [place] [address]- 9694 Jan, [facility] [place] [facility] [address] [id number] [place] [address]- 8782 Jan, [facility] [place] [facility] [address] [id number] [place] [address]- 2320 Jan, [facility] [place] [facility] [address] [id number] [place] [address]- 9335 Jan, [facility] [place] [facility] [address] [id number] [place] [address]- 8258 Jan, [facility] [place] [facility] [address] [id number] [place] [address]- 7444 Jan, [facility] [place] [facility] [address] [id number] [place] [address]- 5766 Jan, [facility] [place] [facility] [address] [id number] [place] [address]- 6974 Jan, [facility] [place] [facility] [address] [id number] [place] [address]- 2400 Dec, [facility] [place] [facility] [address] [id number] [place] [address]- 2884 Dec, [facility] [place] [facility] [address] [id number] [place] [address]- 3755 Dec, [facility] [place] [facility] [address] [id number] [place] [address]- 0400 Dec, [facility] [place] [facility] [address] [id number] [place] [address]- 1479 Dec, [facility] [place] [facility] [address] [id number] [place] [address]- 3451 15 Dec, 2013 [facility] [place] [facility] [address] [id number] [place] [address]- 6900 15 Dec, 2013 [facility] [place] [facility] [address] [id number] [place] [address]- 0939 11 Dec, 2013 [facility] [place] [facility] [address] [id number] [place] [address]- 3816 10 Dec, 2013 [facility] [place] [facility] [address] [id number] [place] [address]- 8216 10 Dec, 2013 [facility] [place] [facility] [address] [id number] [place] [address]- 1890 18 Nov, 2013 [facility] [place] [facility] [address] [id number] [place] [address]- 0218 17 Nov, 2013 [facility] [place] [facility] [address] [id number] [place] [address]- 5687 Nov, [facility] [place] [facility] [address] [id number] [place] [address]- 0176 Nov, [facility] [place] [facility] [address] [id number] [place] [address]- 9699 05 Nov, 2013 [facility] [place] [facility] [address] [id number] [place] [address]- 0388 Oct, [facility] [place] [facility] [address] [id number] [place] [address]- 8430 Oct, [facility] [place] [facility] [address] [id number] [place] [address]- 9074 Oct, [facility] [place] [facility] [address] [id number] [place] [address]27 Sep, [facility] [place] [facility] [address] [id number] [place] 6314 Sep, [facility] [place] [facility] [address] [id number] [place] [address]- 6301 Sep, [facility] [place] [facility] [address] [id number] [place] [address]- 4675 Sep, [facility] [place] [facility] [address] [id number] [place] [address]- 6164 Aug, [facility] [place] [facility] [address] [id number] [place] [address]- 9455 Aug, [facility] [place] [facility] [address] [id number] [place] [address]- 0818 Jul, [facility] [place] [facility] [address] [id number] [place] [address]- 3172 Jul, [facility] [place] [facility] [address] [id number] [place] [address]- 1234 Jul, [facility] [place] [facility] [address] [id number] [place] [address]- 8560 Jul, [facility] [place] [facility] [address] [id number], [place] [address]- 7284 Jul, [facility] [place] [facility] [address] [id number] [place] [address]- 6379 25 Jun, 2013 [facility] [place] [facility] [address] [id number] [place] [address]- 5173 25 Jun, 2013 [facility] [place] [facility] [address] [id number], [place] [address]- 5410 19 Jun, 2013 [facility] [place] [facility] [address] [id number], [place] [address]- 3190 18 Sep, 2012 [facility] [place] [facility] [address] [id number] [place] [address]- 0775 16 Sep2012 [facility] [place] [facility] [address] [id number], [place] [address]- 2220 12 Sep2012 [facility] [place] [facility] [address] [id number], [place] [address]- 6208 11 Jun, 2013 [facility] [place] [facility] [address] [id number] [place] [address]- 4871 May, [facility] [address] [id number] [place] [address]- 2138 May, [facility] [address] [id number] [place] [address]- 1395 Apr, [facility] [address] [id number] [place] [address]- 9598 Apr, [facility] [address] [id number] [place] [address]- 7506 Apr, [facility] [address] [id number] [place] [address]- 6119 Mar, [facility] [address] [id number] [place] [address]- 1273 Mar, [facility] [address] [id number] [place] [address]- 4870 February, [facility] [address] [id number] [place] [address]- 9343 February, [facility] [address] [id number] [place] [address]- 9228 February, [facility] [address] [id number] [place] [address]- 7926 February, [facility] [address] [id number] [place] [address]- 4155 Jan, [facility] [address] [id number] [place] [address]- 8047 Jan, [facility] [address] [id number] [place] [address]- 5819 Jan, [facility] [address] [id number] [place] [address]- 2542 Dec, [facility] [address] [id number] [place] [address]- 0611 Dec, [facility] [place] [facility] [address] [id number] [place] [address]- 7074 Dec, [facility] [place] [facility] [address] [id number] [place] [address]- 1699 Dec, [facility] [place] [facility] [address] [id number] [place] [address]- 6802 Nov, [facility] [place] [facility] [address] [id number] [place] [address]- 9974 Nov, [facility] [place] [facility] [address] [id number] [place] [address]- 2240 Oct, [facility] [place] [facility] [address] [id number] [place] [address]- 7190 Oct, [facility] [place] [facility] [address] [id number] [place] [address]- 1499 Oct, [facility] [place] [facility] [address] [id number] [place] [address]- 0586 Oct, [facility] [place] [facility] [address] [id number] [place] [address]- 6626 Aug, [facility] [place] [facility] [address] [id number], [place] [address]- 4164 Aug, [facility] [place] [facility] [address] [id number] [place] [address]- 0671 Jun, [facility] [place] [facility] [address] [id number], [place] [address]- 0008 May, [facility] [place] [facility] [address] [id number] [place] [address]- 1966 May, [facility] [place] [facility] [address] [id number] [place] [address]- 5144 Apr, [facility] [place] [facility] [address] [id number], [place] [address]- 3540 Apr, [facility] [place] [facility] [address] [id number], [place] [address]- 5983 05 Apr, 2012 [facility] [address] [id number] [place] [address]- 5063 20 Mar, 2012 [facility] [place] [facility] [address] [id number] [place] [address]- 4365 19 Mar, 2012 [facility] [address] [id number] [place] [address]- 0159 Mar, [facility] [place] [facility] [address] [id number] [place] [address]- 7367 Mar, [facility] [address] [id number] [place] [address]- 8153 Mar, [facility] [place] [facility] [address] [id number] [place] [address]- 4910 February, [facility] [address] [id number] [place] [address]- 5906 February, [facility] [address] [id number] [place] [address]- 4022 February, [facility] [address] [id number] [place] [address]- 9980 February, [facility] [address] [facility] [id number] [place] [address]- 2633 February, [facility] [address] [id number] [place] [address] February, [facility] [place] [facility] [address] [id number] [place] [address] February, [facility] [place] [facility] [address] [id number] [place] [address] Jan, [facility] [place] [facility] [address] [id number] [place] [address] 18 Jan, 2012 [facility] [place] [facility] [address] [id number] [place] [address] 17 Jan, 2012 [facility] [place] [facility] [address] [id number] [place] [address] 13 Jan, 2012 [facility] [place] [facility] [address] [id number] [place] [address] 10 Jan, 2012 [facility] [place] [facility] [address] [id number] [place] [address] 04 Jan, 2012 [facility] [place] [facility] [address] [id number] [place] [address] 30 Dec, 2011 [facility] [place] [facility] [address] [id number] [place] [address] 24 Dec, 2011 [facility] [place] [facility] [address] [id number] [place] [address] 20 Dec, 2011 [facility] [place] [facility] [address] [facility] [id number] [place] [address] 13 Dec, 2011 [facility] [place] [facility] [address] [id number] [place] [address] Dec, [facility] [place] [facility] [address] [id number] [place] [address] 28 Nov, 2011 [facility] [place] [facility] [address] [id number] [place] [address] 27 Nov, 2011 [facility] [place] [facility] [address] [id number] [place] [address] 25 Nov, 2011 [facility] [place] [facility] [address] [id number] [place] [address] 14 Nov, 2011 [facility] [place] [facility] [address] [facility] [id number] [place] [address] 1942 10 Nov, 2011 [facility] [place] [facility] [address] [id number] [place] [address] Nov, [facility] [place] [facility] [address] [facility] [id number] [place] [address] Oct, [facility] [place] [facility] [address] [facility] [id number] [place] [address] Oct, [facility] [address] [id number] [place] [address] Oct, [facility] [place] [facility] [address] [id number] [place] [address] Oct, [facility] [place] [facility] [address] [id number] [place] [address] Oct, [facility] [place] [facility] [address] [id number] [place] [address] Sep, [facility] [place] [facility] [address] [id number] [place] [address]- [address] Sep, [facility] [place] [facility] [address] [id number] [place] [address] 39[address] Sep, [facility] [address] [id number] [place] [address] Sep, [facility] [place] [facility] [address] [id number] [place] [address] 14 Sep, 2011 [facility] [place] [facility] [address] [id number] [place] [address] Sep, [facility] [place] [facility] [address] [id number] [place] [address] Sep, [facility] [place] [facility] [address] [id number] [place] [address] 1828 Sep, [facility] [place] [facility] [address] [id number] [place] [address]681 Sep, [facility] [place] [facility] [address] [id number] [place] [address] 2003 Aug, [facility] [place] [facility] [address] [id number] [place] [address] 267[address] Aug, [facility] [place] [facility] [address] [id number] [place] [address] Aug, [facility] [place] [facility] [address] [id number] [place] [address] Aug, [facility] [place] [facility] [address] [id number] [place] [address] Aug, [facility] [place] [facility] [address] [id number] [place] [address] Aug, [facility] [place] [facility] [address] [id number] [place] [address] Aug, [facility] [place] [facility] [address] [id number] [place] [address] 7927 Aug, [facility] [place] [facility] [address] [id number] [place] [address]60 Aug, [facility] [place] [facility] [address] [id number] [place] [address] Aug, [facility] [place] [facility] [address] [id number] [place] [address] 8280 Aug, [facility] [place] [facility] [address] [id number] [place] [address]- 7981 Aug, [facility] [place] [facility] [address] [id number] [place] [address] 0859 Jul, [facility] [place] [facility] [address] [id number] [place] [address] 386[address] Jul, [facility] [place] [facility] [address] [id number] [place] [address] 2546 Jul, [facility] [place] [facility] [address] [id number] [place] [address]- 2085 Jul, [facility] [place] [facility] [address] [id number] [place] [address]- 7785 Jul, [facility] [place] [facility] [address] [id number] [place] [address] Jul, [facility] [place] [facility] [address] [id number] [place] [address] Jul, [facility] [address] [id number] [address] Jul, [facility] [id number] [address] Jul, [facility] [address] [id number] [address] Jul, [facility] [id number] [address] Nov, [facility] [id number] [address] Aug, [facility] [id number] [address] Aug, [facility] [id number] [address] Aug, [facility] [id number], [place] [address] Aug, [facility] [address] [id number], [place] [address] Jul, IMMUNIZATIONS No Known Immunizations SOCIAL HISTORY Never Assessed REASON FOR VISIT Med changes from Inpatient Stay PLAN OF CARE VITAL SIGNS MEDICATIONS Medication Instructions Dosage Frequency Start Date End Date Duration Status Abilify 30 MG Orally Once a day 1 tablet 24h 30 [...]
--- OUTSIDE RECORDS SUMMARY | 2018-08-15 20:31 | XMS REPORT ---
Author Author REGAN SAWYER Organization 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 00205127 Problem Schizoaffective disorder, depressive type F25.1 Active 62241366 Problem Borderline personality disorder F60.3 Active 56645490 Problem Attention deficit hyperactivity disorder (ADHD), inattentive type, 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 10659605 Problem Schizoaffective disorder, unspecified F25.9 Active 61142529 Problem High risk medication use Z79.899 Active 341924337 Problem Posttraumatic stress disorder F43.10 Active 93974787 Problem Obsessive-compulsive disorders 300.3 Active 894662588 Problem Generalized anxiety disorder 300.02 Active 58888625 Problem Attention deficit disorder 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 314.00 Active 34251929 Problem Bipolar disorder, unspecified 296.80 Active 94380070 Problem Posttraumatic stress disorder 309.81 Active 68590562 Problem Paranoid schizophrenia, unspecified condition 295.30 Active 54848985 ALLERGIES Substance Reaction Event Type Date Status Latuda agitation Drug Allergy Jan, Active Penicillamine bronchospasm and rash Drug Allergy Jan, Active Cephalexin visual disturbances Drug Allergy Jan, Active Ceftin visual disturbance Drug Allergy Jan, Active Biaxin bronchospasm Drug Allergy Jan, Active Brintellix 10 Mg Tablet nausea and vomiting Non Drug Allergy Jan, Active Cymbalta 30 Mg Capsule, Delayed Release(e.c.) nausea Non Drug Allergy Jan Active ENCOUNTERS Encounter Location Date Diagnosis [facility] [address] [facility] [id number] [address] May, [facility] [address] [facility] [id number], [place] [address] May, [facility] [address] [facility] [id number] [address] [address] Apr, 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 [address] [id number], [place] [address] Apr, [facility] [address] [id number], [place] [address] Apr, Schizoaffective disorder, depressive type F25.1 and Borderline personality disorder F60.3 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 [address] [id number], [place] [address] Apr, 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 [address] [id number], [place] [address] Apr, [facility] [address] [id number], [place] [address] 8[address] Mar, Paranoid schizophrenia F20.0 [facility] [address] [id number], [place] [address] 12[address] Mar, 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 [address], [place] [address] February, Paranoid schizophrenia F20.0 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 [address], [place] [address] February, [facility] [address] [id number], [place] [address] February, Paranoid schizophrenia F20.0 [facility] [id number], [place] [address] 78[address] February, Paranoid schizophrenia F20.0 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 [id number] [place] [address]- 6710 Jan, Paranoid schizophrenia F20.0 [facility] [address], [place] [address] 3487 Jan, Paranoid schizophrenia F20.0 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 [id number] [place] [address]751- 4748 Dec, 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 [address] [place] [address]- 5932 Nov, [facility] [address], [place] [address] 6337 Oct, Paranoid schizophrenia F20.0 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 [address], [place] [address] Oct, [facility] [id number] [place] [address] 11169- 7575 Oct, [facility] [address], [place] [address] Sep, 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 [address], [place] [address] 3916 Sep, Paranoid schizophrenia F20.0 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 [address], [place] [address] 5[address] Aug, 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 [address], [place] [address] 2299 Jul, Paranoid schizophrenia F20.0 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 [facility] [facility] [id number], [place] [address] 6804 May, Paranoid schizophrenia F20.0 ; Posttraumatic stress disorder F43.10 ; Attention deficit hyperactivity disorder (ADHD), inattentive type, 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 [address], [place] [address]- 3806 February, 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 [address], [place] [address]- 6655 Nov, High risk medication use Z79.899 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 [id number] [place] [address] 52727- 8557 16 Aug, 2016 Paranoid schizophrenia F20.0 ; Posttraumatic stress disorder F43.10 and Attention deficit hyperactivity disorder (ADHD), inattentive type, mild F90.[address] [facility] [id number] [place] [address] 31866 -3901 Aug, Strep throat J02.[address] [facility] [id number] [place] [address] 94071- 5818 Aug, 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 [address] [place] [address] 45725- 8783 Jul, 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 [id number] [place] [address] 68945- 4150 Jun, [facility] [id number] [place] [address] 20969- 0620 May, Paranoid schizophrenia F20.0 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 [facility] [address] [facility] [id number], [place] [address]- 7584 May, [facility] [address] [facility] [id number] [place] [address] 83490- 0956 May, Paranoid schizophrenia F20.0 [facility] [id number] [place] [address] 35358- 0606 May, [facility] [address] [facility] [id number] [place] [address] 40184- 9268 May, Paranoid schizophrenia F20.0 [facility] [address] [facility] [id number] [place] [address] 56261- 6221 May, Schizoaffective disorder, unspecified F25.9 [facility] [address] [facility] [id number] [place] [address] 07905- 2835 May, Schizoaffective disorder, unspecified F25.9 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 [address] [id number], [place] [address]- 2568 Mar, Paranoid schizophrenia F20.0 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 [address] [id number], [place] [address]- 3090 Mar, 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 [address] [facility] [id number], [place] [address]- 3414 February, [facility] [address] [facility] [id number] [place] [address] 49690- 9597 February, [facility] [address] [facility] [id number] [address]- 2310 February, [facility] [address] [id number] [address] 5196 February, [facility] [address] [facility] [id number] [place] [address] 73362- 5019 Jan, Paranoid schizophrenia F20.0 [facility] [address] [id number] [id number] Jan, Dental examination Z01.20 [facility] [address] [id number] [address] Jan, Dental caries K02.9 [facility] [id number] [place] [address] [id number] Jan, Dental examination Z01.20 [facility] [address] [id number][place] [id number] Dec, Encounter for dental examination Z01.20 [facility] [address] [facility] [id number], [place]- 5366 Dec, Paranoid schizophrenia F20.0 [facility] [address] [id number][place] [id number] Dec, Dental examination Z01.20 [facility] [id number]- 5953 Dec, 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 [address], [place] [address]- 0202 Nov, Schizoaffective disorder, unspecified F25.9 [facility] [address], [place] [address]- 4748 Oct, Paranoid schizophrenia F20.0 [facility] [address], [place] [address]- 7690 Oct, 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 [address], [place] [address]- 7016 Sep, 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 [id number], [place] [address]- 3104 Aug, Paranoid schizophrenia F20.0 [facility] [address], [place] [address]- 2909 Aug, 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 [id number], [place] [address]- 4132 Jul, Bipolar disorder, unspecified F31.9 [facility] [address], [place] [address]- 1425 Jul, [facility] [id number] [place] [address] 60053- 3921 Jun, [facility] [address], [place] [address]- 8221 Jun, Schizoaffective disorder, chronic 295.72 ; Posttraumatic stress disorder 309.81 and Attention deficit disorder 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 314.00 [facility] [address]005[address], [place] [address]- 1210 May, [facility] [address], [place] [address]- 9348 May, [facility] [address], [place] [address]- 1515 May, Schizoaffective disorder, chronic 295.72 ; Posttraumatic stress disorder 309.81 ; Attention deficit disorder 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 314.00 and Bipolar disorder, unspecified 296.80 [facility] [address], [place] [address]- 7772 Apr, Schizoaffective disorder, chronic 295.72 [facility] [address] [id number] [address]- 6242 Apr, [facility] [address], [place] [address]- 9203 Apr, Schizoaffective disorder, chronic 295.72 ; Posttraumatic stress disorder 309.81 and Attention deficit disorder 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 314.00 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 [address] [id number], [place] [address]- 5080 Mar, [facility] [id number] [place] [address] 20069- 0109 Mar, [facility] [address]005[address], [place] [address]- 2350 Mar, [facility] [id number] [place] [address] 50180- 7993 Mar, [facility] [address], [place] [address]- 3673 February, Schizoaffective disorder, chronic 295.72 [facility] [address], [place] [address]- 3361 February, [facility] [address], [place] [address]- 1689 February, Attention deficit disorder 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 314.00 ; Posttraumatic stress disorder 309.81 and Schizoaffective disorder, chronic 295.72 [facility] [address], [place] [address]- 0225 Jan, [facility] [address] [id number], [place] [address] Jan, [facility] [id number] [address] Jan, [facility] [id number], [place] [address] Dec, [facility] [place] [facility] [address] [id number] [place] [address] Dec, [facility] [place] [facility] [address] [id number] [place] [address] Dec, [facility] [place] [facility] [address] [facility] [id number] [place] [address] Dec, [facility] [place] [facility] [address] [id number] [place] [address] Dec, [facility] [place] [facility] [address] [id number] [place] [address] Dec, [facility] [place] [facility] [address] [facility] [id number] [place] [address] Dec, [facility] [place] [facility] [address] [facility] [id number] [place] [address] Dec, [facility] [place] [facility] [address] [facility] [id number] [place] [address] 7066 Nov, [facility] [place] [facility] [address] [facility] [id number] [place] [address] 1317 Nov, [facility] [place] [facility] [address] [facility] [id number] [place] [address] 1226 Nov, [facility] [place] [facility] [address] [facility] [id number] [place] [address] 6213 Nov, 2014 [facility] [place] [facility] [address] [facility] [id number], [place] [address] Nov, 2014 [facility] [place] [facility] [address] [facility] [id number] [place] [address] 8852 Nov, 2014 [facility] [place] [facility] [address] [facility] [id number], [place] [address] Nov, 2014 [facility] [place] [facility] [address] [facility] [id number], [place] [address] Nov, 2014 [facility] [place] [facility] [address] [id number] [place] [address]- 4580 Nov, [facility] [place] [facility] [address] [id number] [place] [address]- 3094 Nov, [facility] [place] [facility] [address] [id number] [place] [address]- 5244 Oct, [facility] [place] [facility] [address] [id number] [place] [address]- 9487 Oct, [facility] [place] [facility] [address] [id number] [place] [address]- 4624 Oct, [facility] [place] [facility] [address] [id number] [place] [address]- 8809 Oct, [facility] [place] [facility] [address] [id number] [place] [address]- 8337 Oct, [facility] [place] [facility] [address] [id number] [place] [address]- 3795 Oct, [facility] [place] [facility] [address] [id number] [place] [address]- 0446 Oct, [facility] [place] [facility] [address] [id number] [place] [address]- 0826 Sep, [facility] [place] [facility] [address] [id number] [place] [address]- 4394 Sep, [facility] [place] [facility] [address] [id number], [place] [address] 478[address] Sep, [facility] [place] [facility] [address] [id number] [place] [address]- 1616 Sep, [facility] [place] [facility] [address] [id number] [place] [address]- 9928 Aug, [facility] [place] [facility] [address] [id number], [place] [address]- 4857 Aug, [facility] [place] [facility] [address] [id number], [place] [address]- 3175 Aug, [facility] [place] [facility] [address] [id number] [place] [address]- 3588 Aug, [facility] [place] [facility] [address] [id number] [place] [address]- 2308 Aug, [facility] [place] [facility] [address] [id number] [place] [address]- 9616 Aug, [facility] [place] [facility] [address] [id number] [place] [address]- 1412 Jul, [facility] [place] [facility] [address] [id number] [place] [address]- 9964 Jul, [facility] [place] [facility] [address] [id number] [place] [address]- 0671 Jul, [facility] [place] [facility] [address] [id number] [place] [address]- 5888 24 Jul, 2014 [facility] [place] [facility] [address] [id number] [place] [address]- 1803 15 Jul, 2014 [facility] [place] [facility] [address] [id number] [place] [address]- 0504 15 Jul, 2014 [facility] [place] [facility] [address] [facility] [id number] [place] [address]- 4119 27 Jun, 2014 [facility] [place] [facility] [address] [id number] [place] [address]- 2109 27 Jun, 2014 [facility] [place] [facility] [address] [id number], [place] [address]- 7247 26 Jun, 2014 [facility] [place] [facility] [address] [id number] [place] [address]- 5704 26 Jun, 2014 [facility] [place] [facility] [address] [id number] [place] [address]- 4924 26 Jun, 2014 [facility] [place] [facility] [address] [facility] [id number] [place] [address]- 5614 26 Jun, 2014 [facility] [place] [facility] [address] [id number] [place] [address]- 0269 16 Jun, 2013 [facility] [place] [facility] [address] [id number] [place] [address]- 3706 Jun, 2013 [facility] [place] [facility] [address] [id number] [place] [address]- 2546 Jun, 2013 [facility] [place] [facility] [address] [id number] [place] [address]- 0358 Jun, 2013 [facility] [place] [facility] [address] [id number] [place] [address]- 3608 Jun, [facility] [place] [facility] [address] [id number] [place] [address]- 8213 May, [facility] [place] [facility] [address] [id number] [place] [address]- 1494 May, [facility] [place] [facility] [address] [id number] [place] [address]- 1642 May, [facility] [place] [facility] [address] [id number] [place] [address]- 3590 May, [facility] [place] [facility] [address] [id number] [place] [address]- 3109 May, [facility] [place] [facility] [address] [id number] [place] [address]- 9645 May, [facility] [place] [facility] [address] [id number] [place] [address]- 8661 May, [facility] [place] [facility] [address] [id number] [place] [address]- 5923 May, [facility] [place] [facility] [address] [id number] [place] [address]- 6062 May, [facility] [place] [facility] [address] [id number] [place] [address]- 9366 May, [facility] [place] [facility] [address] [id number] [place] [address]- 0476 Apr, [facility] [place] [facility] [address] [id number] [place] [address]- 5311 Apr, [facility] [place] [facility] [address] [id number] [place] [address]- 2424 Apr, [facility] [place] [facility] [address] [id number] [place] [address]- 4510 Apr, [facility] [place] [facility] [address] [id number] [place] [address]- 4606 Apr, [facility] [place] [facility] [address] [id number] [place] [address]- 8669 Apr, [facility] [place] [facility] [address] [id number] [place] [address]- 2985 Apr, [facility] [place] [facility] [address] [id number] [place] [address]- 2713 Apr, [facility] [place] [facility] [address] [id number] [place] [address]- 7933 Apr, [facility] [place] [facility] [address] [id number] [place] [address]- 1367 Apr, [facility] [place] [facility] [address] [id number] [place] [address]- 9051 Mar, [facility] [place] [facility] [address] [id number] [place] [address]- 3533 Mar, [facility] [place] [facility] [address] [id number] [place] [address]- 9869 Mar, [facility] [place] [facility] [address] [id number] [place] [address]- 5110 Mar, [facility] [place] [facility] [address] [id number] [place] [address]- 8170 Mar, [facility] [place] [facility] [address] [id number] [place] [address]- 7533 Mar, [facility] [place] [facility] [address] [id number] [place] [address]- 9030 18 Mar, 2014 [facility] [place] [facility] [address] [id number] [place] [address]- 3540 16 Mar, 2014 [facility] [place] [facility] [address] [id number] [place] [address]- 5216 16 Mar, 2014 [facility] [place] [facility] [address] [id number] [place] [address]- 8656 Mar, [facility] [place] [facility] [address] [id number] [place] [address]- 5890 Mar, [facility] [place] [facility] [address] [id number] [place] [address]- 4867 Mar, [facility] [place] [facility] [address] [id number] [place] [address]- 9226 Mar, [facility] [place] [facility] [address] [id number] [place] [address]- 7252 Mar, [facility] [place] [facility] [address] [id number] [place] [address]- 4214 Mar, [facility] [place] [facility] [address] [id number] [place] [address]- 2459 Mar, [facility] [place] [facility] [address] [id number] [place] [address]- 6769 Mar, [facility] [place] [facility] [address] [id number] [place] [address]- 0666 Mar, [facility] [place] [facility] [address] [id number] [place] [address]- 1194 Mar, [facility] [place] [facility] [address] [id number] [place] [address]- 3083 Mar, [facility] [place] [facility] [address] [id number] [place] [address]- 1034 February, [facility] [place] [facility] [address] [id number] [place] [address]- 4749 February, [facility] [place] [facility] [address] [id number] [place] [address]- 4585 February, [facility] [address] [id number] [place] [address]- 4152 February, [facility] [place] [facility] [address] [id number] [place] [address]- 5573 February, [facility] [place] [facility] [address] [id number] [place] [address]- 0235 February, [facility] [place] [facility] [address] [id number] [place] [address]- 9559 February, [facility] [place] [facility] [address] [id number] [place] [address]- 1440 February, [facility] [address] [id number] [place] [address]- 0816 February, [facility] [address] [id number] [place] [address]- 8998 February, [facility] [address] [id number] [place] [address]- 6593 February, [facility] [place] [facility] [address] [id number] [place] [address]- 3913 February, [facility] [place] [facility] [address] [id number] [place] [address]- 6142 February, [facility] [place] [facility] [address] [id number] [place] [address]- 4036 February, [facility] [place] [facility] [address] [id number] [place] [address]- 1737 February, [facility] [place] [facility] [address] [id number] [place] [address]- 9123 February, [facility] [place] [facility] [address] [id number] [place] [address]- 5989 February, [facility] [place] [facility] [address] [id number] [place] [address]- 8202 February, [facility] [place] [facility] [address] [id number] [place] [address]- 7617 February, [facility] [place] [facility] [address] [id number] [place] [address]- 4693 February, [facility] [place] [facility] [address] [id number] [place] [address]- 1427 February, [facility] [place] [facility] [address] [id number] [place] [address]- 5624 Jan, [facility] [place] [facility] [address] [id number] [place] [address]- 7692 Jan, [facility] [place] [facility] [address] [id number] [place] [address]- 8004 Jan, [facility] [place] [facility] [address] [id number] [place] [address]- 3652 Jan, [facility] [place] [facility] [address] [id number] [place] [address]- 9680 Jan, [facility] [place] [facility] [address] [id number] [place] [address]- 6310 Jan, [facility] [place] [facility] [address] [id number] [place] [address]- 8808 Jan, [facility] [place] [facility] [address] [id number] [place] [address]- 1838 Jan, [facility] [place] [facility] [address] [id number] [place] [address]- 3207 Dec, [facility] [place] [facility] [address] [id number] [place] [address]- 8314 Dec, [facility] [place] [facility] [address] [id number] [place] [address]- 5721 Dec, [facility] [place] [facility] [address] [id number] [place] [address]- 8148 Dec, [facility] [place] [facility] [address] [id number] [place] [address]- 0018 19 Dec, 2013 [facility] [place] [facility] [address] [id number] [place] [address]- 5799 15 Dec, 2013 [facility] [place] [facility] [address] [id number] [place] [address]- 3826 15 Dec, 2013 [facility] [place] [facility] [address] [id number] [place] [address]- 2704 11 Dec, 2013 [facility] [place] [facility] [address] [id number] [place] [address]- 3414 10 Dec, 2013 [facility] [place] [facility] [address] [id number] [place] [address]- 9504 10 Dec, 2013 [facility] [place] [facility] [address] [id number] [place] [address]- 4238 18 Nov, 2013 [facility] [place] [facility] [address] [id number] [place] [address]- 0009 17 Nov, 2013 [facility] [place] [facility] [address] [id number] [place] [address]- 6935 17 Nov, 2013 [facility] [place] [facility] [address] [id number] [place] [address]- 9470 05 Nov, 2013 [facility] [place] [facility] [address] [facility] [id number] [place] [address]- 3270 Nov, [facility] [place] [facility] [address] [id number] [place] [address]- 9118 Oct, [facility] [place] [facility] [address] [id number] [place] [address]- 1750 Oct, [facility] [place] [facility] [address] [id number] [place] [address]- 3533 Oct, [facility] [place] [facility] [address] [id number] [place] [address]- 4276 Sep, [facility] [place] [facility] [address] [id number] [place] [address]- 4576 Sep, [facility] [place] [facility] [address] [id number] [place] [address]- 1189 Sep, [facility] [place] [facility] [address] [id number] [place] [address]- 1582 Sep, [facility] [place] [facility] [address] [facility] [id number] [place] [address]- 3777 Aug, [facility] [place] [facility] [address] [id number] [place] [address]- 3665 Aug, [facility] [place] [facility] [address] [id number] [place] [address]- 7870 Jul, [facility] [place] [facility] [address] [id number] [place] [address]- 1107 Jul, [facility] [place] [facility] [address] [id number] [place] [address]- 0667 Jul, [facility] [place] [facility] [address] [id number], [place] [address]- 7934 Jul, [facility] [place] [facility] [address] [id number] [place] [address]- 4542 Jul, [facility] [place] [facility] [address] [id number], [place] [address]- 1276 25 Jun, 2013 [facility] [place] [facility] [address] [id number], [place] [address]- 0468 25 Jun, 2013 [facility] [place] [facility] [address] [id number], [place] [address]- 8274 19 Sep, 2012 [facility] [place] [facility] [address] [id number], [place] [address]- 4542 18 Sep2012 [facility] [place] [facility] [address] [id number], [place] [address]- 5802 16 Sep2012 [facility] [place] [facility] [address] [id number], [place] [address]- 1229 12 Sep2012 [facility] [place] [facility] [address] [id number] [place] [address]- 8615 Jun, [facility] [address] [id number] [place] [address]- 6341 May, [facility] [place] [facility] [address] [id number] [place] [address]- 7851 May, [facility] [address] [id number] [place] [address]- 1321 Apr, [facility] [place] [facility] [address] [id number] [place] [address]- 0666 Apr, [facility] [place] [address] [id number] [place] [address]- 0999 Apr, [facility] [place] [address] [id number] [place] [address]- 3012 Mar, [facility] [address] [id number] [place] [address]- 3084 Mar, [facility] [place] [address] [id number] [place] [address]- 1433 February, [facility] [address] [id number] [place] [address]- 2540 February, [facility] [place] [address] [id number] [place] [address]- 9566 February, [facility] [address] [id number] [place] [address] 2547 February, [facility] [place] [facility] [address] [id number] [place] [address]- 7070 Jan, [facility] [place] [facility] [address] [id number] [place] [address]- 5998 17 Jan, 2013 [facility] [place] [facility] [address] [id number] [place] [address]- 0236 16 Jan, 2013 [facility] [address] [id number] [place] [address]- 9594 Dec, [facility] [place] [facility] [address] [id number] [place] [address]- 8885 Dec, [facility] [address] [id number] [place] [address]- 2964 Dec, [facility] [address] [id number] [place] [address]- 8704 Dec, [facility] [address] [id number] [place] [address]- 2105 Nov, [facility] [address] [id number] [place] [address]- 4679 Nov, [facility] [address] [id number] [place] [address]- 1157 Oct, [facility] [address] [id number] [place] [address]- 4892 Oct, [facility] [address] [id number] [place] [address] Oct, [facility] [address] [id number] [place] [address] Oct, [facility] [address] [id number] [place] [address] Aug, [facility] [address] [id number] [place] [address] Aug, [facility] [address] [id number] [place] [address] Jun, [facility] [place] [facility] [address] [id number] [place] [address] May, [facility] [place] [facility] [address] [id number] [place] [address] May, [facility] [place] [facility] [address] [id number] [place] [address] Apr, [facility] [place] [facility] [address] [id number] [place] [address] Apr, [facility] [address] [id number] [place] [address] Apr, [facility] [place] [facility] [address] [id number] [place] [address] Mar, [facility] [place] [facility] [address] [id number] [place] [address] Mar, [facility] [place] [facility] [address] [id number] [place] [address] Mar, [facility] [place] [facility] [address] [id number] [place] [address] Mar, [facility] [place] [facility] [address] [id number] [place] [address] Mar, [facility] [place] [facility] [address] [id number] [place] [address] February, [facility] [place] [facility] [address] [id number] [place] [address] February, [facility] [place] [facility] [address] [id number] [place] [address] February, [facility] [place] [facility] [address] [id number] [place] [address] February, [facility] [place] [facility] [address] [id number] [place] [address] February, [facility] [place] [facility] [address] [id number] [place] [address] February, [facility] [place] [facility] [address] [id number] [place] [address] February, [facility] [place] [facility] [address] [id number] [place] [address] Jan, [facility] [place] [facility] [address] [id number] [place] [address] Jan, [facility] [place] [facility] [address] [id number] [place] [address] 17 Jan, 2012 [facility] [place] [facility] [address] [id number] [place] [address]- [address] 13 Jan, 2012 [facility] [place] [facility] [address] [id number] [place] [address] 10 Jan, 2012 [facility] [place] [facility] [address] [id number] [place] [address]27 04 Jan, 2012 [facility] [place] [facility] [address] [id number] [place] [address] 30 Dec, 2011 [facility] [place] [facility] [address] [id number] [place] [address] 98[address] 24 Dec, 2011 [facility] [place] [facility] [address] [facility] [id number] [place] [address] 1449 20 Dec, 2011 [facility] [place] [facility] [address] [id number] [place] [address] 8[address] 13 Dec, 2011 [facility] [place] [facility] [address] [id number] [place] [address] 6547 06 Dec, 2011 [facility] [place] [facility] [address] [id number] [place] [address] 28 Nov, 2011 [facility] [place] [facility] [address] [facility] [id number] [place] [address] 27 Nov, 2011 [facility] [place] [facility] [address] [facility] [id number] [place] [address] 25 Nov, 2011 [facility] [place] [facility] [address] [id number] [place] [address] 44[address] 14 Nov, 2011 [facility] [place] [facility] [address] [id number] [place] [address] 3530 10 Nov, 2011 [facility] [place] [facility] [address] [id number] [place] [address]8 01 Nov, 2011 [facility] [place] [facility] [address] [id number] [place] [address] Oct, [facility] [address] [id number] [place] [address] Oct, [facility] [place] [facility] [address] [id number] [place] [address] 5546 Oct, [facility] [place] [facility] [address] [id number] [place] [address] Oct, [facility] [place] [facility] [address] [id number] [place] [address] 1621 Oct, [facility] [place] [facility] [address] [id number] [place] [address]- [address] Sep, [facility] [place] [facility] [address] [id number] [place] [address] 1632 Sep, [facility] [place] [facility] [address] [id number] [place] [address]- 1405 Sep, [facility] [place] [facility] [address] [id number] [place] [address]- 7418 14 Sep, 2011 [facility] [place] [facility] [address] [id number] [place] [address]- 49[address] 14 Sep, 2011 [facility] [place] [facility] [address] [id number] [place] [address]39 Sep, [facility] [place] [facility] [address] [id number] [place] [address]- 4410 Sep, [facility] [place] [facility] [address] [id number] [place] [address] 4136 Sep, [facility] [place] [facility] [address] [id number] [place] [address] 05 Sep, 2011 [facility] [place] [facility] [address] [id number] [place] [address]- [address]996 30 Aug, 2011 [facility] [place] [facility] [address] [id number] [place] [address] Aug, [facility] [place] [facility] [address] [id number] [place] [address]- 3041 Aug, [facility] [place] [facility] [address] [id number] [place] [address]- 7337 Aug, [facility] [place] [facility] [address] [id number] [place] [address]- 0392 Aug, [facility] [place] [facility] [address] [id number] [place] [address]- 0926 Aug, [facility] [place] [facility] [address] [id number] [place] [address]- 8932 Aug, [facility] [place] [facility] [address] [id number] [place] [address]- 2274 Aug, [facility] [place] [facility] [address] [id number] [place] [address]- 67[address] Aug, [facility] [place] [facility] [address] [id number] [place] [address]- 7892 Aug, [facility] [place] [facility] [address] [id number] [place] [address]- 2577 Aug, [facility] [place] [facility] [address] [id number] [place] [address]- 6277 Aug, [facility] [place] [facility] [address] [id number] [place] [address]- 5293 Jul, [facility] [place] [facility] [address] [id number] [place] [address]- 9893 Jul, [facility] [place] [facility] [address] [id number] [place] [address]- 3805 Jul, [facility] [place] [facility] [address] [id number] [place] [address]- 3891 Jul, [facility] [place] [facility] [address] [id number] [place] [address]- 8753 Jul, [facility] [place] [facility] [address] [id number] [place] [address]- [address] Jul, [facility] [address] [id number] [address] Jul, [facility] [id number] [address]63 Jul, [facility] [id number] [address]695 Jul, [facility] [id number] [address] Jul, [facility] [id number] [place] [address] Nov, [facility] [address] [id number] [address], [facility] [id number] [address] Aug, [facility] [id number] [address], [facility] [id number] [place] [address] Aug, [facility] [id number], [place] [address] Jul, IMMUNIZATIONS No Known Immunizations SOCIAL HISTORY Never Assessed REASON FOR VISIT f/u PLAN OF CARE Activity Details Follow Up 1 Week Reason: f/u VITAL SIGNS Height 65.75 in 2018-01-25 Weight 198 lbs 2018-01-25 Heart Rate 80 bpm 2018-01-25 Respiratory Rate 20 2018-01-25 BMI 32.20 kg/m2 2018-01-25 Blood pressure systolic 118 mmHg 2018-01-25 Blood pressure diastolic 70 mmHg 2018-01-25 MEDICATIONS Medication Instructions Dosage Frequency Start Date End Date Duration Status NovoLog Mix 70/30 (70-30) 100 UNIT/ML Subcutaneous 3 times a day 27 units 8h Active Hydrocodone-Acetaminophen 10-325 mg 1 Tablet by Oral route every 8 hours PRN pain Jul, Active Insulin Detemir 100 unit/mL (3 mL) Subcutaneous 2 times a day 35 units by Subcutaneous route 1 time per day qHS 12h February, Active Seroquel 200 MG Orally Once a day at bedtime for sleep 1 tablet Aug, Active Citalopram Hydrobromide 40 mg Orally Once a day 1 tablet with the 20 mg tablet 24h February, Active Cyproheptadine HCl 4 MG Orally once a day 3 tablets 24h Active Abilify 2 MG Orally Once a day 1 tablet 24h Active Metformin HCl 1000 MG Orally 2 times a day 1 tablet 12h Active Ativan 1 MG Orally Once a day as needed 1 tablet Active Topamax 100 mg Orally Twice a day 1.5 tablet 12h Active Citalopram Hydrobromide 20 mg Orally Once a day 1 tablet daily with 40 mg tablet 24h Active Levothyroxine Sodium 50 MCG Orally Once a day 1 tablet on an empty stomach in the morning 24h Active Trihexyphenidyl HCl 2 MG Orally Twice a day 0.5 tablet 12h Nov, Active Trileptal 300 MG Orally Twice a day 1 tablet 12h Jan, 30 day(s ) Active Invega 6 MG Orally Once a day 2 tablets 24h Active Intuniv 1 MG Orally Once a day at bedtime 1 tablet Active RESULTS No Results PROCEDURES Procedure Date Ordered Result Body Site [facility] VISIT ESTABLISHED PATIENT January 25, 2018 INSTRUCTIONS MEDICATIONS ADMINISTERED No Known Medications MEDICAL (GENERAL) HISTORY Type Description Date Medical History diabetes Medical History thyroid Surgical History appendix Surgical History gallbladder Surgical History eyes Surgical History hip Surgical History MRI on back and pelvis 06/08 Hospitalization History surgeries Hospitalization History [facility] Suicide attempt by hanging 06/14/2016 Hospitalization History [facility] 01/30/2018-02/10/2008 Hospitalization History [facility] 05/04/18-05/09/18
--- OUTSIDE RECORDS SUMMARY | 2018-08-15 20:32 | XMS REPORT ---
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 80931257 Problem Schizoaffective disorder, depressive type F25.1 Active 98580436 Problem Borderline personality disorder F60.3 Active 61902249 Problem Attention deficit hyperactivity disorder (ADHD), inattentive type, 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 00200452 Problem Schizoaffective disorder, unspecified F25.9 Active 53258126 Problem High risk medication use Z79.899 Active 958144510 Problem Posttraumatic stress disorder F43.10 Active 64704535 Problem Obsessive-compulsive disorders 300.3 Active 015300889 Problem Generalized anxiety disorder 300.02 Active 36528914 Problem Attention deficit disorder 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 314.00 Active 05741262 Problem Bipolar disorder, unspecified 296.80 Active 64573991 Problem Posttraumatic stress disorder 309.81 Active 94693405 Problem Paranoid schizophrenia, unspecified condition 295.30 Active 31348552 ALLERGIES No Information ENCOUNTERS Encounter Location Date Diagnosis [facility] [address] [facility] [id number], [place] [address] May, [facility] [address], [place] [address] Apr, [facility] [id number] [address] Apr, [facility] [id number], [place] [address] Apr, Paranoid schizophrenia F20.0 ; Posttraumatic stress disorder F43.10 ; Attention deficit hyperactivity disorder (ADHD), inattentive type, 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 and Borderline personality disorder F60.3 [facility] [address] [id number], [place] [address] Apr, [facility] [id number], [place] [address] Apr, Schizoaffective disorder, depressive type F25.1 and Borderline personality disorder F60.3 [facility] [id number], [place] [address] Apr, Paranoid schizophrenia F20.0 ; Posttraumatic stress disorder F43.10 ; Attention deficit hyperactivity disorder (ADHD), inattentive type, 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 and Borderline personality disorder F60.3 [facility] [address], [place] [address] Apr, [facility] [address], [place] [address] Apr, Paranoid schizophrenia F20.0 ; Posttraumatic stress disorder F43.10 ; Attention deficit hyperactivity disorder (ADHD), inattentive type, 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 and Borderline personality disorder F60.3 [facility] [address], [place] [address] Apr, [facility] [address], [place] [address] 3468 Mar, Paranoid schizophrenia F20.0 [facility] [id number], [place] [address] Mar, [facility] [address] [place] [address]- 0990 Mar, Paranoid schizophrenia F20.0 ; Posttraumatic stress disorder F43.10 ; Attention deficit hyperactivity disorder (ADHD), inattentive type, 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 and Borderline personality disorder F60.3 [facility] [address] [id number], [place] [address] February, Paranoid schizophrenia F20.0 [facility] [address], [place] [address] February, Paranoid schizophrenia F20.0 ; Posttraumatic stress disorder F43.10 ; Attention deficit hyperactivity disorder (ADHD), inattentive type, 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 and Borderline personality disorder F60.3 [facility] [address], [place] [address] February, Paranoid schizophrenia F20.0 ; Posttraumatic stress disorder F43.10 ; Attention deficit hyperactivity disorder (ADHD), inattentive type, 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 and Borderline personality disorder F60.3 [facility] [address], [place] [address] February, [facility] [address], [place] [address] 8[address] February, Paranoid schizophrenia F20.0 [facility] [address], [place] [address] 3306 February, Paranoid schizophrenia F20.0 [facility] [address], [place] [address]- 9992 February, Paranoid schizophrenia F20.0 ; Posttraumatic stress disorder F43.10 ; Attention deficit hyperactivity disorder (ADHD), inattentive type, 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 and Borderline personality disorder F60.3 [facility] [address], [place] [address]- [address] Jan, Paranoid schizophrenia F20.0 ; Posttraumatic stress disorder F43.10 ; Attention deficit hyperactivity disorder (ADHD), inattentive type, 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 and Borderline personality disorder F60.3 [facility] [address], [place] [address]- 8[address] Jan, Paranoid schizophrenia F20.0 [facility] [address], [place] [address]- 9727 Jan, Paranoid schizophrenia F20.0 [facility] [address], [place] [address]- 1141 Jan, Paranoid schizophrenia F20.0 ; Posttraumatic stress disorder F43.10 ; Attention deficit hyperactivity disorder (ADHD), inattentive type, 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 and Borderline personality disorder F60.3 [facility] [address], [place] [address] Dec, [facility] [address], [place] [address]- 6871 Nov, Paranoid schizophrenia F20.0 ; Posttraumatic stress disorder F43.10 ; Attention deficit hyperactivity disorder (ADHD), inattentive type, 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 and Borderline personality disorder F60.3 [facility] [address], [place] [address]- 1115 Nov, [facility] [address], [place] [address]- 0360 Oct, Paranoid schizophrenia F20.0 [facility] [address], [place] [address]- 4256 Oct, Paranoid schizophrenia F20.0 ; Posttraumatic stress disorder F43.10 ; Attention deficit hyperactivity disorder (ADHD), inattentive type, 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 ; Borderline personality disorder F60.3 and 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 [facility] [address], [place] [address]- 6[address] Oct, [facility] [address], [place] [address] 8550 Oct, [facility] [address], [place] [address]- 2074 Sep, [facility] [address], [place] [address]- 6112 Sep, Paranoid schizophrenia F20.0 ; Posttraumatic stress disorder F43.10 ; Attention deficit hyperactivity disorder (ADHD), inattentive type, 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 and Borderline personality disorder F60.3 [facility] [address], [place] [address]- 8[address] Sep, Paranoid schizophrenia F20.0 [facility] [address], [place] [address]- 7406 Aug, Paranoid schizophrenia F20.0 ; Posttraumatic stress disorder F43.10 ; Attention deficit hyperactivity disorder (ADHD), inattentive type, 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 and Borderline personality disorder F60.3 [facility] [address], [place] [address]- 3787 Aug, Paranoid schizophrenia F20.0 ; Posttraumatic stress disorder F43.10 ; Attention deficit hyperactivity disorder (ADHD), inattentive type, 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 and Borderline personality disorder F60.3 [facility] [address], [place] [address]- 7[address] Aug, [facility] [address], [place] [address]- 8296 Jul, Paranoid schizophrenia F20.0 ; Posttraumatic stress disorder F43.10 ; Attention deficit hyperactivity disorder (ADHD), inattentive type, 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 and Borderline personality disorder F60.3 [facility] [address], [place] [address]- 6857 Jul, Paranoid schizophrenia F20.0 [facility] [id number], [place] [address] 9560 Jul, Paranoid schizophrenia F20.0 ; Posttraumatic stress disorder F43.10 ; Attention deficit hyperactivity disorder (ADHD), inattentive type, 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 and Borderline personality disorder F60.3 [facility] [address] [address]- [address] Jun, Paranoid schizophrenia F20.0 ; Posttraumatic stress disorder F43.10 ; Attention deficit hyperactivity disorder (ADHD), inattentive type, 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 and Borderline personality disorder F60.3 [facility] [address] [address]- 277[address] May, 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 [facility] [address] [facility] [id number] [place] [address]- 4[address] May, [facility] [address] [facility] [id number], [place] [address]- 5256 May, [facility] [id number], [place] [address] 9[address] May, Attention deficit hyperactivity disorder (ADHD), inattentive type, 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 [facility] [address] [facility] [id number] [place] [address]- 3792 May, [facility] [address] [facility] [id number], [place] [address] May, Attention deficit hyperactivity disorder (ADHD), inattentive type, 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 [facility] [id number], [place] [address] 6[address] May, Paranoid schizophrenia F20.0 ; Posttraumatic stress disorder F43.10 ; Attention deficit hyperactivity disorder (ADHD), inattentive type, 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 and 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 [facility] [id number], [place] [address]- 0091 Apr, Paranoid schizophrenia F20.0 [facility] [id number], [place] [address]- 0716 Apr, Paranoid schizophrenia F20.0 ; Posttraumatic stress disorder F43.10 and Attention deficit hyperactivity disorder (ADHD), inattentive type, 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 [facility] [id number], [place] [address]- 7646 February, [facility] [address] [facility] [id number], [place] [address]- 6456 February, Paranoid schizophrenia F20.0 ; Posttraumatic stress disorder F43.10 and Attention deficit hyperactivity disorder (ADHD), inattentive type, 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 [facility] [address], [place] [address]- 6165 February, Paranoid schizophrenia F20.0 ; Posttraumatic stress disorder F43.10 and Attention deficit hyperactivity disorder (ADHD), inattentive type, 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 [facility] [address], [place] [address]- 7607 Jan, Paranoid schizophrenia F20.0 ; Posttraumatic stress disorder F43.10 and Attention deficit hyperactivity disorder (ADHD), inattentive type, 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 [facility] [address] [address] Dec, Dental examination Z01.20 [facility] [id number] [place] [id number] Nov, Dental examination Z01.20 [facility] [id number] [place] [address] [id number] Nov, Dental examination Z01.20 [facility] [id number] [place] [address] [id number] Nov, Dental caries K02.9 [facility] [id number], [place] [address]- 0567 13 Nov, 2016 High risk medication use Z79.899 [facility] [address], [place] [address]- 8718 Nov, Paranoid schizophrenia F20.0 ; Posttraumatic stress disorder F43.10 ; Attention deficit hyperactivity disorder (ADHD), inattentive type, 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 and Borderline personality disorder in adult F60.3 [facility] [address] [id number] Oct, Dental caries K02.9 [facility] [address], [place] [address]- 4475 05 Sep, 2016 Paranoid schizophrenia F20.0 ; Posttraumatic stress disorder F43.10 and Attention deficit hyperactivity disorder (ADHD), inattentive type, 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 [facility] [address], [place] [address]- 8830 16 Aug, 2016 Paranoid schizophrenia F20.0 ; Posttraumatic stress disorder F43.10 and Attention deficit hyperactivity disorder (ADHD), inattentive type, 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 [facility] [address], [place] [address] Aug, Strep throat J02.0 and Cough R05 [facility] [id number] [place] [address]- 7986 Aug, [facility] [id number] [place] [address] 697[address]- 0529 Jul, Paranoid schizophrenia F20.0 ; Posttraumatic stress disorder F43.10 and Attention deficit hyperactivity disorder (ADHD), inattentive type, 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 [facility] [address] [place] [address] 95683- 8815 Jul, [facility] [id number] [place] [address] 25848- 8996 Jun, Paranoid schizophrenia F20.0 ; Posttraumatic stress disorder F43.10 and Attention deficit hyperactivity disorder (ADHD), inattentive type, 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 [facility] [address] [id number] Jun, Dental examination Z01.20 [facility] [address], [place] [address]- 5548 Jun, [facility] [address] [place] [address]- 8920 May, Paranoid schizophrenia F20.0 [facility] [address] [place] [address] 656[address]- 4017 May, Paranoid schizophrenia F20.0 ; Posttraumatic stress disorder F43.10 and Attention deficit hyperactivity disorder (ADHD), inattentive type, 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 [facility] [address] [place] [address] 35495- 3407 May, [facility] [address] [facility] [id number] [place] [address]- 9119 May, Paranoid schizophrenia F20.0 [facility] [address] [facility] [id number] [place] [address]- 4642 May, [facility] [address] [facility] [id number] [place] [address]- 1456 May, Paranoid schizophrenia F20.0 [facility] [address] [facility] [id number] [place] [address]- 9158 May, Schizoaffective disorder, unspecified F25.9 [facility] [address] [facility] [id number] [place] [address]- 8697 May, Schizoaffective disorder, unspecified F25.9 [facility] [address] [facility] [id number], [place] [address]- 6281 May, [facility] [address] [facility] [id number], [place] [address]- 2197 May, Paranoid schizophrenia F20.0 [facility] [address] [facility] [id number] [place] [address]- 0171 May, Paranoid schizophrenia F20.0 ; Posttraumatic stress disorder F43.10 and Attention deficit hyperactivity disorder (ADHD), inattentive type, 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 [facility] [address] [facility] [id number], [place] [address]- 3940 Mar, [facility] [address] [facility] [id number], [place] [address]- 8828 Mar, Paranoid schizophrenia F20.0 ; Posttraumatic stress disorder F43.10 and Attention deficit hyperactivity disorder (ADHD), inattentive type, 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 [facility] [address] [facility] [id number], [place] [address]- 5755 Mar, Paranoid schizophrenia F20.0 [facility] [address] [facility] [id number], [place] [address]- 3290 Mar, Paranoid schizophrenia F20.0 ; Attention deficit hyperactivity disorder (ADHD), inattentive type, 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 and Posttraumatic stress disorder F43.10 [facility] [address] [id number], [place] [address]- 8830 Mar, [facility] [address] [facility] [id number], [place] [address]- 9354 Mar, Paranoid schizophrenia F20.0 ; Posttraumatic stress disorder F43.10 and Attention deficit hyperactivity disorder (ADHD), inattentive type, 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 [facility] [address] [id number], [place] [address]- 0075 February, [facility] [address] [id number], [place] [address]- 5387 February, [facility] [address] [id number], [place] [address]- 9266 February, [facility] [address] [id number], [place] [address]- 7606 February, [facility] [id number] [place] [address] 01768- 2799 Jan, Paranoid schizophrenia F20.0 [facility] [address] [id number] [id number] Jan, Dental examination Z01.20 [facility] [address] [id number] [id number] Jan, Dental caries K02.9 [facility] [id number] [place] [address] [id number] Jan, Dental examination Z01.20 [facility] [id number] [place] [address] [id number] Dec, Encounter for dental examination Z01.20 [facility] [address] [id number], [place] [address]- 5632 Dec, Paranoid schizophrenia F20.0 [facility] [address] [id number] [id number] 15 Dec, 2015 Dental examination Z01.20 [facility] [address], [place] [address]- 8627 Dec, [facility] [address], [place] [address]- 0091 Dec, Paranoid schizophrenia F20.0 ; Posttraumatic stress disorder F43.10 and Attention deficit hyperactivity disorder (ADHD), inattentive type, 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 [facility] [address], [place] [address]- 9266 Nov, Schizoaffective disorder, unspecified F25.9 [facility] [address], [place] [address]- 8125 Oct, Paranoid schizophrenia F20.0 [facility] [address], [place] [address]- 9252 Oct, [facility] [address], [place] [address]- 1714 Sep, Paranoid schizophrenia F20.0 ; Posttraumatic stress disorder F43.10 and Attention deficit hyperactivity disorder (ADHD), inattentive type, 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 [facility] [address], [place] [address]- 0412 Sep, [facility] [address], [place] [address]- 4218 Sep, Paranoid schizophrenia F20.0 ; Posttraumatic stress disorder F43.10 and Attention deficit hyperactivity disorder (ADHD), inattentive type, 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 [facility] [address], [place] [address]- 4188 Aug, Paranoid schizophrenia F20.0 [facility] [address], [place] [address]- 9184 Aug, [facility] [address], [place] [address]- 8842 Aug, Posttraumatic stress disorder F43.10 ; Paranoid schizophrenia F20.0 and Attention deficit hyperactivity disorder (ADHD), inattentive type, 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 [facility] [address] [place] [address] 14894- 0535 Jul, Bipolar disorder, unspecified F31.9 [facility] [id number] [place] [address] 32325- 3939 Jul, [facility] [id number] [place] [address] 80218- 4756 Jun, [facility] [id number] [place] [address] 69507- 5195 Jun, Schizoaffective disorder, chronic 295.72 ; Posttraumatic stress disorder 309.81 and Attention deficit disorder 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 314.00 [facility] [id number] [place] [address] 88920- 3725 May, [facility] [id number] [place] [address] 60175- 0573 May, [facility] [id number] [place] [address] 85576- 0056 May, Schizoaffective disorder, chronic 295.72 ; Posttraumatic stress disorder 309.81 ; Attention deficit disorder 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 314.00 and Bipolar disorder, unspecified 296.80 [facility] [id number] [place] [address] 41394- 6680 Apr, Schizoaffective disorder, chronic 295.72 [facility] [address] [place] [address] 81517- 0640 Apr, [facility] [id number] [place] [address] 21219- 2199 Apr, Schizoaffective disorder, chronic 295.72 ; Posttraumatic stress disorder 309.81 and Attention deficit disorder 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 314.00 [facility] [id number] [place] [address] 74204- 5799 Mar, Disorganized schizophrenia, 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 [facility] [address] [address]696 Mar, [facility] [address] 9290 Mar, [facility] [address] 8820 Mar, [facility] [id number] 7082 Mar, [facility] [address] [place] [address] 871055- 5014 February, Schizoaffective disorder, chronic 295.72 [facility] [id number] [place] [address] 78559- 6753 February, [facility] [id number] [place] [address] 46623- 8827 February, Attention deficit disorder 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 314.00 ; Posttraumatic stress disorder 309.81 and Schizoaffective disorder, chronic 295.72 [facility] [address], [place] [address]- 6361 Jan, [facility] [address], [place] [address]- 6371 Jan, [facility] [address], [place] [address]- 9051 Jan, [facility] [address] 5121 Dec, [facility] [address] 1192 Dec, [facility] [address]- 2855 Dec, [facility] [address] [address] Dec, [facility] [place] [facility] [address] [id number] [place] [address]- 1295 Dec, [facility] [place] [facility] [address] [id number] [place] [address]- 7373 Dec, [facility] [place] [facility] [address] [id number] [place] [address]- 9185 Dec, [facility] [place] [facility] [address] [id number] [place] [address]- 8432 Dec, [facility] [place] [facility] [address] [id number] [place] [address]- 5208 Nov, [facility] [place] [facility] [address] [id number] [place] [address]- 0446 Nov, [facility] [place] [facility] [address] [facility] [id number] [place] [address]- 5491 Nov, 2014 [facility] [place] [facility] [address] [facility] [id number] [place] [address]- 4239 Nov, 2014 [facility] [place] [facility] [address] [facility] [id number] [place] [address]- 2289 Nov, 2014 [facility] [place] [facility] [address] [facility] [id number] [place] [address]- 2582 Nov, 2014 [facility] [place] [facility] [address] [facility] [id number] [place] [address]- 2535 Nov, 2014 [facility] [place] [facility] [address] [facility] [id number] [place] [address]- 7247 Nov, [facility] [place] [facility] [address] [facility] [id number] [place] [address]- 3622 Nov, 2014 [facility] [place] [facility] [address] [facility] [id number] [place] [address] Nov, [facility] [place] [facility] [address] [facility] [id number] [place] [address] Oct, [facility] [place] [facility] [address] [id number] [place] [address] 29 Oct, 2014 [facility] [place] [facility] [address] [id number] [place] [address] 1120 28 Oct, 2014 [facility] [place] [facility] [address] [id number] [place] [address] 7406 15 Oct, 2014 [facility] [place] [facility] [address] [id number] [place] [address] 1192 15 Oct, 2014 [facility] [place] [facility] [address] [id number] [place] [address] 0531 13 Oct, 2014 [facility] [place] [facility] [address] [id number] [place] [address] 8605 Oct, [facility] [place] [facility] [address] [id number] [place] [address] 1824 17 Sep, 2014 [facility] [place] [facility] [address] [id number] [place] [address]- 4706 17 Sep, 2014 [facility] [place] [facility] [address] [id number] [place] [address]- 4285 15 Sep, 2014 [facility] [place] [facility] [address] [id number] [place] [address]- 9188 15 Sep, 2014 [facility] [place] [facility] [address] [id number] [place] [address]- 5906 20 Aug, 2014 [facility] [place] [facility] [address] [id number] [place] [address]- 8959 20 Aug, 2014 [facility] [place] [facility] [address] [id number] [place] [address]- 6821 14 Aug, 2014 [facility] [place] [facility] [address] [id number] [place] [address]- 8292 14 Aug, 2014 [facility] [place] [facility] [address] [id number] [place] [address]- 9151 14 Aug, 2014 [facility] [place] [facility] [address] [id number] [place] [address] Aug, [facility] [place] [facility] [address] [id number] [place] [address]- 2679 29 Jul, 2014 [facility] [place] [facility] [address] [id number] [place] [address]- 4815 29 Jul, 2014 [facility] [place] [facility] [address] [id number] [place] [address]- 2307 Jul, [facility] [place] [facility] [address] [id number] [place] [address]- 5093 Jul, [facility] [place] [facility] [address] [id number] [place] [address]- 5097 Jul, [facility] [place] [facility] [address] [id number] [place] [address]- 8851 15 Jul, 2014 [facility] [place] [facility] [address] [id number] [place] [address]- 7261 27 Jun, 2014 [facility] [place] [facility] [address] [id number] [place] [address]- 6183 27 Jun, 2013 [facility] [place] [facility] [address] [id number] [place] [address]- 7293 26 Jun, 2013 [facility] [place] [facility] [address] [id number] [place] [address]- 0736 26 Jun, 2013 [facility] [place] [facility] [address] [id number], [place] [address]- 9681 26 Jun, 2013 [facility] [place] [facility] [address] [id number], [place] [address]- 2547 26 Sep, 2013 [facility] [place] [facility] [address] [id number] [place] [address]- 2543 16 Sep, 2013 [facility] [place] [facility] [address] [id number], [place] [address] 0245 16 Sep, 2013 [facility] [place] [facility] [address] [id number] [place] [address]- 7212 16 Jun, 2013 [facility] [place] [facility] [address] [id number] [place] [address]- 3195 Jun, [facility] [place] [facility] [address] [id number] [place] [address]- 0709 Jun, [facility] [place] [facility] [address] [id number] [place] [address]- 5161 May, [facility] [place] [facility] [address] [id number] [place] [address]- 2497 May, [facility] [place] [facility] [address] [id number] [place] [address]- 6406 May, [facility] [place] [facility] [address] [id number] [place] [address]- 5022 May, [facility] [place] [facility] [address] [id number] [place] [address]- 7960 May, [facility] [place] [facility] [address] [id number] [place] [address]- 1548 May, [facility] [place] [facility] [address] [id number] [place] [address]- 5255 May, [facility] [place] [facility] [address] [id number] [place] [address]- 1685 May, [facility] [place] [facility] [address] [id number] [place] [address]- 9580 May, [facility] [place] [facility] [address] [id number] [place] [address]- 8280 May, [facility] [place] [facility] [address] [id number] [place] [address]- 6089 Apr, [facility] [place] [facility] [address] [id number] [place] [address]- 2900 Apr, [facility] [place] [facility] [address] [id number] [place] [address]- 9899 Apr, [facility] [place] [facility] [address] [id number] [place] [address]- 6831 Apr, [facility] [place] [facility] [address] [id number] [place] [address]- 6317 Apr, [facility] [place] [facility] [address] [id number] [place] [address]- 6229 Apr, [facility] [place] [facility] [address] [id number] [place] [address]- 0551 Apr, [facility] [place] [facility] [address] [id number] [place] [address]- 2465 Apr, [facility] [place] [facility] [address] [id number] [place] [address]- 9630 Apr, [facility] [place] [facility] [address] [id number] [place] [address]- 8934 Apr, [facility] [place] [facility] [address] [id number] [place] [address]- 2408 Mar, [facility] [place] [facility] [address] [id number] [place] [address]- 0475 Mar, [facility] [place] [facility] [address] [id number] [place] [address]- 3639 Mar, [facility] [place] [facility] [address] [id number] [place] [address]- 4394 Mar, [facility] [place] [facility] [address] [id number] [place] [address]- 6047 Mar, [facility] [place] [facility] [address] [id number] [place] [address]- 1485 Mar, [facility] [place] [facility] [address] [id number] [place] [address]- 6168 Mar, [facility] [place] [facility] [address] [id number] [place] [address]- 7845 Mar, [facility] [place] [facility] [address] [id number] [place] [address]- 3336 Mar, [facility] [place] [facility] [address] [id number] [place] [address]- 9359 Mar, [facility] [place] [facility] [address] [id number] [place] [address]- 8337 Mar, [facility] [place] [facility] [address] [id number] [place] [address]- 0753 Mar, [facility] [place] [facility] [address] [id number] [place] [address]- 8073 Mar, [facility] [place] [facility] [address] [id number] [place] [address]- 3161 Mar, [facility] [place] [facility] [address] [id number] [place] [address]- 1004 Mar, [facility] [place] [facility] [address] [id number] [place] [address]- 8613 Mar, [facility] [place] [facility] [address] [id number] [place] [address]- 9848 Mar, [facility] [place] [facility] [address] [id number] [place] [address]- 0249 Mar, [facility] [place] [facility] [address] [id number] [place] [address]- 0761 Mar, [facility] [place] [facility] [address] [id number] [place] [address]- 3893 Mar, [facility] [place] [facility] [address] [id number] [place] [address]- 7262 February, [facility] [place] [facility] [address] [id number] [place] [address]- 2784 February, [facility] [place] [facility] [address] [id number] [place] [address]- 0949 February, [facility] [place] [facility] [address] [id number] [place] [address]- 6674 February, [facility] [place] [facility] [address] [id number] [place] [address]- 3080 February, [facility] [place] [facility] [address] [id number] [place] [address]- 0399 February, [facility] [address] [id number] [place] [address]- 2680 February, [facility] [address] [id number] [place] [address] February, [facility] [address] [id number] [place] [address]- 2786 February, [facility] [address] [id number] [place] [address]- 9056 February, [facility] [address] [id number] [place] [address]- 3055 February, [facility] [address] [id number] [place] [address]- 0476 February, [facility] [address] [id number] [place] [address]- 9602 February, [facility] [address] [id number] [place] [address]- 7244 February, [facility] [address] [id number] [place] [address]- 5922 February, [facility] [address] [id number] [place] [address]- 7553 February, [facility] [address] [id number] [place] [address]- 2350 February, [facility] [address] [id number] [place] [address]343 February, [facility] [place] [facility] [address] [id number] [place] [address]- 7735 February, [facility] [address] [id number] [place] [address]- 3962 February, [facility] [address] [id number] [place]18 February, [facility] [place] [facility] [address] [id number] [place] [address]- 2908 Jan, [facility] [place] [facility] [address] [id number] [place] [address]- 7773 Jan, [facility] [place] [facility] [address] [id number] [place] [address]- 5003 Jan, [facility] [place] [facility] [address] [id number] [place] [address]- 5714 Jan, [facility] [place] [facility] [address] [id number] [place] [address]- 1896 Jan, [facility] [place] [facility] [address] [id number] [place] [address]- 4984 Jan, [facility] [place] [facility] [address] [id number] [place] [address]- 4484 Jan, [facility] [place] [facility] [address] [id number] [place] [address]- 6395 Jan, [facility] [place] [facility] [address] [id number] [place] [address]- 1604 Dec, [facility] [place] [facility] [address] [id number] [place] [address]- 5552 Dec, [facility] [place] [facility] [address] [id number] [place] [address]- 6881 Dec, [facility] [place] [facility] [address] [id number] [place] [address]- 8884 19 Dec, 2013 [facility] [place] [facility] [address] [id number] [place] [address]- 0248 19 Dec, 2013 [facility] [place] [facility] [address] [id number] [place] [address]- 4682 15 Dec, 2013 [facility] [place] [facility] [address] [id number] [place] [address]- 2030 15 Dec, 2013 [facility] [place] [facility] [address] [id number], [place] [address]- 1370 11 Dec, 2013 [facility] [place] [facility] [address] [id number] [place] [address]- 9391 Dec, [facility] [place] [facility] [address] [id number] [place] [address]- 1571 Dec, [facility] [place] [facility] [address] [id number] [place] [address]- 5936 18 Nov, 2013 [facility] [place] [facility] [address] [id number] [place] [address]- 0591 Nov, [facility] [place] [facility] [address] [id number] [place] [address]- 5261 Nov, [facility] [place] [facility] [address] [id number] [place] [address]- 4762 Nov, [facility] [place] [facility] [address] [id number] [place] [address]- 0947 Nov, [facility] [place] [facility] [address] [id number] [place] [address]- 4769 Oct, [facility] [place] [facility] [address] [id number] [place] [address]- 1903 Oct, [facility] [place] [facility] [address] [facility] [id number] [place] [address]- 8107 Oct, [facility] [place] [facility] [address] [id number] [place] [address]- 2226 Sep, [facility] [place] [facility] [address] [id number] [place] [address]- 1840 Sep, [facility] [place] [facility] [address] [id number] [place] [address]- 6565 Sep, [facility] [place] [facility] [address] [id number] [place] [address]- 7378 Sep, [facility] [place] [facility] [address] [id number] [place] [address]- 9056 Aug, [facility] [place] [facility] [address] [id number] [place] [address]- 1770 Aug, [facility] [place] [facility] [address] [id number] [place] [address]- 4061 Jul, [facility] [place] [facility] [address] [id number] [place] [address]- 8605 Jul, [facility] [place] [facility] [address] [id number] [place] [address]- 8527 Jul, [facility] [place] [facility] [address] [id number] [place] [address]- 0986 Jul, [facility] [place] [facility] [address] [id number] [place] [address]- 5103 Jul, [facility] [place] [facility] [address] [id number] [place] [address]- 3860 Jun, [facility] [place] [facility] [address] [id number] [place] [address]- 3888 25 Jun, 2013 [facility] [place] [facility] [address] [id number] [place] [address]- 7726 19 Jun, 2013 [facility] [place] [facility] [address] [id number] [place] [address]- 4253 18 Jun, 2013 [facility] [place] [facility] [address] [id number] [place] [address]- 7698 16 Jun, 2013 [facility] [place] [facility] [address] [id number], [place] [address]- 0248 12 Jun, 2013 [facility] [place] [facility] [address] [id number] [place] [address]- 9863 11 Jun, 2013 [facility] [place] [facility] [address] [id number] [place] [address]- 1022 30 May, 2013 [facility] [place] [facility] [address] [id number] [place] [address]- 2684 May, [facility] [place] [facility] [address] [id number] [place] [address]- 2930 Apr, [facility] [address] [id number] [place] [address]- 8499 Apr, [facility] [address] [id number] [place] [address]- 7954 Apr, [facility] [address] [id number] [place] [address]- 8584 Mar, [facility] [place] [facility] [address] [id number] [place] [address]- 6472 Mar, [facility] [address] [id number] [place] [address]- 0481 February, [facility] [address] [id number] [place] [address]- 3983 February, [facility] [address] [id number] [place] [address]- 0012 February, [facility] [address] [id number] [place] [address]- 6687 February, [facility] [address] [id number] [place] [address]- 9994 Jan, [facility] [place] [facility] [address] [id number] [place] [address]- 8883 Jan, [facility] [address] [id number] [place] [address]- 2635 16 Jan, 2013 [facility] [place] [facility] [address] [id number] [place] [address]- 0868 29 Dec, 2012 [facility] [place] [facility] [address] [id number] [place] [address]- 8228 Dec, [facility] [place] [facility] [address] [id number] [place] [address]- 8344 Dec, [facility] [place] [facility] [address] [id number] [place] [address]- 0708 Dec, [facility] [place] [facility] [address] [id number] [place] [address]- 4669 Nov, [facility] [address] [id number] [place] [address]- 7767 Nov, [facility] [place] [facility] [address] [id number] [place] [address]- 0266 Oct, [facility] [address] [id number] [place] [address]- 9856 Oct, [facility] [place] [facility] [address] [id number] [place] [address]- 7093 Oct, [facility] [address] [id number] [place] [address]- 9958 Oct, [facility] [place] [facility] [address] [id number] [place] [address]- 6969 Aug, [facility] [place] [facility] [address] [id number] [place] [address]- 7067 Aug, [facility] [address] [id number] [place] [address]- 8113 Jun, [facility] [place] [facility] [address] [id number] [place] [address]- 5167 May, [facility] [address] [id number] [place] [address]- 4496 May, [facility] [place] [facility] [address] [id number] [place] [address]- 6999 Apr, [facility] [place] [facility] [address] [id number] [place] [address]- 6726 Apr, [facility] [place] [facility] [address] [id number] [place] [address]- 3606 Apr, [facility] [place] [facility] [address] [id number] [place] [address]- 1806 Mar, [facility] [place] [facility] [address] [id number] [place] [address]- 6795 Mar, [facility] [place] [facility] [address] [id number] [place] [address]- 5824 Mar, [facility] [place] [facility] [address] [id number] [place] [address]- 9171 Mar, [facility] [place] [facility] [address] [id number] [place] [address]- 9529 Mar, [facility] [place] [facility] [address] [id number] [place] [address]- 6608 February, [facility] [place] [facility] [address] [id number] [place] [address]- 9465 February, [facility] [place] [facility] [address] [id number] [place] [address]- 6625 February, [facility] [place] [facility] [address] [id number] [place] [address]- 3520 February, [facility] [place] [facility] [address] [id number] [place] [address]- 7948 February, [facility] [place] [facility] [address] [id number] [place] [address]- 2733 February, [facility] [place] [facility] [address] [id number] [place] [address]- 6826 February, [facility] [place] [facility] [address] [id number] [place] [address]- 7145 Jan, [facility] [place] [facility] [address] [id number] [place] [address]- 3157 18 Jan, 2012 [facility] [place] [facility] [address] [id number] [place] [address]- 1565 17 Jan, 2012 [facility] [place] [facility] [address] [id number] [place] [address]- 2183 13 Jan, 2012 [facility] [place] [facility] [address] [id number] [place] [address]- 4704 10 Jan, 2012 [facility] [place] [facility] [address] [id number] [place] [address]- 7525 04 Jan, 2012 [facility] [address] [id number] [place] [address]- 5446 30 Dec, 2011 [facility] [place] [facility] [address] [id number] [place] [address]- 8766 24 Dec, 2011 [facility] [place] [facility] [address] [id number] [place] [address]- 9436 20 Dec, 2011 [facility] [place] [facility] [address] [id number] [place] [address] 2546 13 Dec, 2011 [facility] [place] [facility] [address] [id number] [place] [address] 06 Dec, 2011 [facility] [place] [facility] [address] [id number] [place] [address] 28 Nov, 2011 [facility] [place] [facility] [address] [id number] [place] [address] 27 Nov, 2011 [facility] [place] [facility] [address] [id number] [place] [address] 25 Nov, 2011 [facility] [place] [facility] [address] [id number] [place] [address] 14 Nov, 2011 [facility] [place] [facility] [address] [facility] [id number] [place] [address] 10 Nov, 2011 [facility] [place] [facility] [address] [facility] [id number] [place] [address] 2546 Nov, [facility] [place] [facility] [address] [id number] [place] [address] Oct, [facility] [place] [facility] [address] [id number] [place] [address] Oct, [facility] [place] [facility] [address] [id number] [place] [address] Oct, [facility] [place] [facility] [address] [facility] [id number] [place] [address] Oct, [facility] [place] [facility] [address] [id number] [place] [address] Oct, [facility] [place] [facility] [address] [id number] [place] [address] Sep, [facility] [place] [facility] [address] [id number] [place] [address] Sep, [facility] [place] [facility] [address] [id number] [place] [address] Sep, [facility] [place] [facility] [address] [id number] [place] [address] Sep, [facility] [place] [facility] [address] [id number] [place] [address] 14 Sep, 2011 [facility] [place] [facility] [address] [id number] [place] [address]- [address] Sep, [facility] [place] [facility] [address] [id number] [place] [address] Sep, [facility] [place] [facility] [address] [id number] [place] [address] Sep, [facility] [place] [facility] [address] [id number] [place] [address] Sep, [facility] [place] [facility] [address] [id number] [place] [address] Aug, [facility] [place] [facility] [address] [id number] [place] [address] Aug, [facility] [place] [facility] [address] [id number] [place] [address] 8193 Aug, [facility] [place] [facility] [address] [id number] [place] [address] 284[address] Aug, [facility] [place] [facility] [address] [id number] [place] [address] Aug, [facility] [place] [facility] [address] [id number] [place] [address] Aug, [facility] [place] [facility] [address] [id number] [place] [address] Aug, [facility] [place] [facility] [address] [id number] [place] [address] 16 Aug, 2011 [facility] [place] [facility] [address] [id number] [place] [address] Aug, [facility] [place] [facility] [address] [id number] [place] [address] 78[address] Aug, [facility] [place] [facility] [address] [id number] [place] [address] 1633 Aug, [facility] [place] [facility] [address] [id number] [place] [address] Aug, [facility] [place] [facility] [address] [id number] [place] [address] Jul, [facility] [place] [facility] [address] [id number] [place] [address] Jul, [facility] [place] [facility] [address] [id number] [place] [address] 24 Jul, 2011 [facility] [place] [facility] [address] [id number] [place] [address] Jul, [facility] [place] [facility] [address] [id number] [place] [address] 20 Jul, 2011 [facility] [place] [facility] [address] [id number], [place] [address] 19 Jul, 2011 [facility] [place] [facility] [address] [id number] [place] [address] 69[address] 18 Jul, 2011 [facility] [place] [facility] [address] [id number], [place] [address] 11 Jul, 2011 [facility] [place] [facility] [address] [id number], [place] [address] 10 Jul, 2011 [facility] [place] [facility] [address] [id number], [place] [address] Jul, [facility] [address] [id number], [place] [address] Nov, [facility] [id number] [address] Aug, [facility] [id number], [place] [address] Aug, [facility] [address] [id number], [place] [address] Aug, [facility] [id number], [place] [address] Aug, [facility] [address] [id number], [place] [address] Jul, IMMUNIZATIONS No Known Immunizations SOCIAL HISTORY Never Assessed REASON FOR VISIT ativan refill PLAN OF CARE VITAL SIGNS MEDICATIONS Medication Instructions Dosage Frequency Start Date End Date Duration Status Ativan 1 MG Orally Once a day as needed 1 tablet 30 days Active RESULTS No Results PROCEDURES No Known procedures INSTRUCTIONS MEDICATIONS ADMINISTERED No Known Medications MEDICAL (GENERAL) HISTORY Type Description Date Medical History diabetes Medical History thyroid Surgical History appendix Surgical History gallbladder Surgical History eyes Surgical History hip Surgical History MRI on back and pelvis 06/08 Hospitalization History surgeries Hospitalization History [facility] Suicide attempt by hanging 06/14/2016 Hospitalization History [facility] 01/30/2018-02/10/2008 Hospitalization History [facility] 05/04/18-05/09/18
--- OUTSIDE RECORDS SUMMARY | 2018-08-15 20:33 | XMS REPORT ---
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 61740234 Problem Schizoaffective disorder, depressive type F25.1 Active 17816304 Problem Borderline personality disorder F60.3 Active 36901522 Problem Attention deficit hyperactivity disorder (ADHD), inattentive type, 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 81757587 Problem Schizoaffective disorder, unspecified F25.9 Active 63085152 Problem High risk medication use Z79.899 Active 810043390 Problem Posttraumatic stress disorder F43.10 Active 79791684 Problem Obsessive-compulsive disorders 300.3 Active 017931250 Problem Generalized anxiety disorder 300.02 Active 40127722 Problem Attention deficit disorder 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 314.00 Active 07424182 Problem Bipolar disorder, unspecified 296.80 Active 18040561 Problem Posttraumatic stress disorder 309.81 Active 37982170 Problem Paranoid schizophrenia, unspecified condition 295.30 Active [id number] ALLERGIES No Information ENCOUNTERS Encounter Location Date Diagnosis [facility] [address] [facility] [id number] [address] May, [facility] [address] [address] Apr, [facility] [address] [id number] [address] 8[address] Apr, Paranoid schizophrenia F20.0 ; Posttraumatic stress disorder F43.10 ; Attention deficit hyperactivity disorder (ADHD), inattentive type, 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 and Borderline personality disorder F60.3 [facility] [address] [id number] [address] Apr, [facility] [address] [id number] [address] 4974 Apr, Schizoaffective disorder, depressive type F25.1 and Borderline personality disorder F60.3 [facility] [id number] [place] [address] 84428- 8770 Apr, Paranoid schizophrenia F20.0 ; Posttraumatic stress disorder F43.10 ; Attention deficit hyperactivity disorder (ADHD), inattentive type, 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 and Borderline personality disorder F60.3 [facility] [address] [id number] [address] Apr, [facility] [address] [address] 8896 Apr, Paranoid schizophrenia F20.0 ; Posttraumatic stress disorder F43.10 ; Attention deficit hyperactivity disorder (ADHD), inattentive type, 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 and Borderline personality disorder F60.3 [facility] [address] [address] 8058 Apr, [facility] [address] [id number] [address] 7774 Mar, Paranoid schizophrenia F20.0 [facility] [address] [address] 1136 Mar, [facility] [address] [id number] [address] 4386 Mar, Paranoid schizophrenia F20.0 ; Posttraumatic stress disorder F43.10 ; Attention deficit hyperactivity disorder (ADHD), inattentive type, 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 and Borderline personality disorder F60.3 [facility] [address] [id number] [address] 3686 February, Paranoid schizophrenia F20.0 [facility] [address] [id number] [address]- 0568 February, Paranoid schizophrenia F20.0 ; Posttraumatic stress disorder F43.10 ; Attention deficit hyperactivity disorder (ADHD), inattentive type, 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 and Borderline personality disorder F60.3 [facility] [address] [id number] [address]- 6869 February, Paranoid schizophrenia F20.0 ; Posttraumatic stress disorder F43.10 ; Attention deficit hyperactivity disorder (ADHD), inattentive type, 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 and Borderline personality disorder F60.3 [facility] [address] [id number] [address] 5872 February, [facility] [address] [id number] [address]- 6471 February, Paranoid schizophrenia F20.0 [facility] [address] [address]- 4843 February, Paranoid schizophrenia F20.0 [facility] [address] [id number] [address]- 9092 February, Paranoid schizophrenia F20.0 ; Posttraumatic stress disorder F43.10 ; Attention deficit hyperactivity disorder (ADHD), inattentive type, 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 and Borderline personality disorder F60.3 [facility] [address] [id number] [address]- 0272 Jan, Paranoid schizophrenia F20.0 ; Posttraumatic stress disorder F43.10 ; Attention deficit hyperactivity disorder (ADHD), inattentive type, 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 and Borderline personality disorder F60.3 [facility] [address] [id number] [address] 7661 Jan, Paranoid schizophrenia F20.0 [facility] [id number] [address]- 9299 Jan, Paranoid schizophrenia F20.0 [facility] [id number] [address]- 6963 Jan, Paranoid schizophrenia F20.0 ; Posttraumatic stress disorder F43.10 ; Attention deficit hyperactivity disorder (ADHD), inattentive type, 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 and Borderline personality disorder F60.3 [facility] [address] [address]- 3323 Dec, [facility] [address] [address]- 5343 Nov, Paranoid schizophrenia F20.0 ; Posttraumatic stress disorder F43.10 ; Attention deficit hyperactivity disorder (ADHD), inattentive type, 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 and Borderline personality disorder F60.3 [facility] [id number] [place] [address] 96048- 6987 Nov, [facility] [address] [place] [address] 58170- 0584 Oct, Paranoid schizophrenia F20.0 [facility] [address] [place] [address] 30706- 6422 Oct, Paranoid schizophrenia F20.0 ; Posttraumatic stress disorder F43.10 ; Attention deficit hyperactivity disorder (ADHD), inattentive type, 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 ; Borderline personality disorder F60.3 and 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 [facility] [address] [address]- 6073 Oct, [facility] [address] [address]- 7539 Oct, [facility] [address] [address]- 9395 Sep, [facility] [id number] [place] [address] 48026- 8815 Sep, Paranoid schizophrenia F20.0 ; Posttraumatic stress disorder F43.10 ; Attention deficit hyperactivity disorder (ADHD), inattentive type, 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 and Borderline personality disorder F60.3 [facility] [address] [place] [address] 43663- 6158 Sep, Paranoid schizophrenia F20.0 [facility] [address] [id number] [address]- 3498 Aug, Paranoid schizophrenia F20.0 ; Posttraumatic stress disorder F43.10 ; Attention deficit hyperactivity disorder (ADHD), inattentive type, 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 and Borderline personality disorder F60.3 [facility] [address] [id number] [address]- 1087 Aug, Paranoid schizophrenia F20.0 ; Posttraumatic stress disorder F43.10 ; Attention deficit hyperactivity disorder (ADHD), inattentive type, 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 and Borderline personality disorder F60.3 [facility] [address] [id number] [address]- 5162 Aug, [facility] [address] [address]- 3357 Jul, Paranoid schizophrenia F20.0 ; Posttraumatic stress disorder F43.10 ; Attention deficit hyperactivity disorder (ADHD), inattentive type, 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 and Borderline personality disorder F60.3 [facility] [address] [address]- 1987 Jul, Paranoid schizophrenia F20.0 [facility] [address] [id number] [address]- 2328 Jul, Paranoid schizophrenia F20.0 ; Posttraumatic stress disorder F43.10 ; Attention deficit hyperactivity disorder (ADHD), inattentive type, 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 and Borderline personality disorder F60.3 [facility] [address] [id number] [address]- 4341 Jun, Paranoid schizophrenia F20.0 ; Posttraumatic stress disorder F43.10 ; Attention deficit hyperactivity disorder (ADHD), inattentive type, 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 and Borderline personality disorder F60.3 [facility] [address] [id number] [address]- 3481 May, 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 [facility] [address] [facility] [id number] [address]- 2133 May, [facility] [address] [id number] [address]- 3606 May, [facility] [address] [id number] [address]- 7183 May, Attention deficit hyperactivity disorder (ADHD), inattentive type, 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 [facility] [address] [id number] [address]- 5847 May, [facility] [address] [id number] [address]- 4010 May, Attention deficit hyperactivity disorder (ADHD), inattentive type, 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 [facility] [address] [address]- 9595 May, Paranoid schizophrenia F20.0 ; Posttraumatic stress disorder F43.10 ; Attention deficit hyperactivity disorder (ADHD), inattentive type, 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 and Other usp (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 Z79.899 [facility] [address] [address]- 3657 Apr, Paranoid schizophrenia F20.0 [facility] [address] [address]- 3026 Apr, Paranoid schizophrenia F20.0 ; Posttraumatic stress disorder F43.10 and Attention deficit hyperactivity disorder (ADHD), inattentive type, 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 [facility] [address] [id number] [address]- 4349 February, [facility] [address] [id number] [address]- 3539 February, Paranoid schizophrenia F20.0 ; Posttraumatic stress disorder F43.10 and Attention deficit hyperactivity disorder (ADHD), inattentive type, 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 [facility] [id number] [address]- 5876 February, Paranoid schizophrenia F20.0 ; Posttraumatic stress disorder F43.10 and Attention deficit hyperactivity disorder (ADHD), inattentive type, 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 [facility] [address] [place] [address] [id number]- 5335 Jan, Paranoid schizophrenia F20.0 ; Posttraumatic stress disorder F43.10 and Attention deficit hyperactivity disorder (ADHD), inattentive type, 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 [facility] [address] [place] [address] [id number] Dec, Dental examination Z01.20 [facility] [id number] [place] [address] [id number] Nov, Dental examination Z01.20 [facility] [id number] [place] [address] [id number] Nov, Dental examination Z01.20 [facility] [id number] [place] [address] [id number] Nov, Dental caries K02.9 [facility] [address] [place] [address] 64113- 3663 Nov, High risk medication use Z79.899 [facility] [address] [place] [address] 22874- 5545 Nov, Paranoid schizophrenia F20.0 ; Posttraumatic stress disorder F43.10 ; Attention deficit hyperactivity disorder (ADHD), inattentive type, 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 and Borderline personality disorder in adult F60.3 [facility] [address] [place] [address] [id number] Oct, Dental caries K02.9 [facility] [address] [place] [address] 85961- 1928 05 Sep, 2016 Paranoid schizophrenia F20.0 ; Posttraumatic stress disorder F43.10 and Attention deficit hyperactivity disorder (ADHD), inattentive type, 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 [facility] [address] [place] [address] 17790- 9224 Aug, Paranoid schizophrenia F20.0 ; Posttraumatic stress disorder F43.10 and Attention deficit hyperactivity disorder (ADHD), inattentive type, 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 [facility] [id number] [place] [address] 91318 -7994 Aug, Strep throat J02.0 and Cough R05 [facility] [id number] [place] [address] 21857- 4816 Aug, [facility] [id number] [place] [address] 98259- 0970 Jul, Paranoid schizophrenia F20.0 ; Posttraumatic stress disorder F43.10 and Attention deficit hyperactivity disorder (ADHD), inattentive type, 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 [facility] [address] [place] [address] 07275- 4881 Jul, [facility] [id number] [place] [address] 23314- 0579 Jun, Paranoid schizophrenia F20.0 ; Posttraumatic stress disorder F43.10 and Attention deficit hyperactivity disorder (ADHD), inattentive type, 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 [facility] [id number] [place] [address] [id number] Jun, Dental examination Z01.20 [facility] [address] [place] [address] 21416- 3731 Jun, [facility] [id number] [place] [address] 59532- 2644 May, Paranoid schizophrenia F20.0 [facility] [address] [place] [address] 04629- 9127 May, Paranoid schizophrenia F20.0 ; Posttraumatic stress disorder F43.10 and Attention deficit hyperactivity disorder (ADHD), inattentive type, 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 [facility] [address] [address]- 8503 May, [facility] [id number] [place] [address] 04971- 0737 May, Paranoid schizophrenia F20.0 [facility] [address] [facility] [id number] [address]- 3754 May, [facility] [address] [facility] [id number] [address]- 7557 May, Paranoid schizophrenia F20.0 [facility] [address] [facility] [id number] [place] [address]- 1001 May, Schizoaffective disorder, unspecified F25.9 [facility] [address] [facility] [id number] [address]- 6683 May, Schizoaffective disorder, unspecified F25.9 [facility] [address] [facility] [id number] [address]- 3308 May, [facility] [address] [facility] [id number] [place] [address]- 1999 May, Paranoid schizophrenia F20.0 [facility] [address] [facility] [id number] [address]- 5676 May, Paranoid schizophrenia F20.0 ; Posttraumatic stress disorder F43.10 and Attention deficit hyperactivity disorder (ADHD), inattentive type, 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 [facility] [address] [facility] [id number] [address]- 3986 Mar, [facility] [address] [facility] [id number] [address]- 1184 Mar, Paranoid schizophrenia F20.0 ; Posttraumatic stress disorder F43.10 and Attention deficit hyperactivity disorder (ADHD), inattentive type, 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 [facility] [address] [facility] [id number] [address]- 4964 16 Mar, 2016 Paranoid schizophrenia F20.0 [facility] [address] [facility] [id number] [place] [address]- 7190 13 Mar, 2016 Paranoid schizophrenia F20.0 ; Attention deficit hyperactivity disorder (ADHD), inattentive type, 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 and Posttraumatic stress disorder F43.10 [facility] [address] [facility] [id number] [place] [address]- 7115 Mar, [facility] [id number] [place] [address] 652974- 3915 Mar, Paranoid schizophrenia F20.0 ; Posttraumatic stress disorder F43.10 and Attention deficit hyperactivity disorder (ADHD), inattentive type, 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 [facility] [id number] [place] [address] 97762- 2500 February, [facility] [address] [facility] [id number] [place] [address] 19960- 2181 February, [facility] [id number] [place] [address] 51947- 4305 February, [facility] [id number] [place] [address] 86596- 2028 February, [facility] [id number] [place] [address] 39710- 0690 Jan, Paranoid schizophrenia F20.0 [facility] [id number] [place] [address] [id number] Jan, Dental examination Z01.20 [facility] [id number] [place] [address] [id number] Jan, Dental caries K02.9 [facility] [id number] [place] [address] [id number] Jan, Dental examination Z01.20 [facility] [id number] [place] [address] [id number] Dec, Encounter for dental examination Z01.20 [facility] [address] [place] [address] 85038 2546 Dec, Paranoid schizophrenia F20.0 [facility] [id number] [place] [address] [id number] Dec, Dental examination Z01.20 [facility] [address] [address]- 4732 Dec, [facility] [address] [address]- 9835 Dec, Paranoid schizophrenia F20.0 ; Posttraumatic stress disorder F43.10 and Attention deficit hyperactivity disorder (ADHD), inattentive type, 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 [facility] [address] [address]- 3012 Nov, Schizoaffective disorder, unspecified F25.9 [facility] [address] [address]- 9657 Oct, Paranoid schizophrenia F20.0 [facility] [address] [address]- 8019 Oct, [facility] [address] [address]- 9506 Sep, Paranoid schizophrenia F20.0 ; Posttraumatic stress disorder F43.10 and Attention deficit hyperactivity disorder (ADHD), inattentive type, 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 [facility] [address] [address]- 1698 Sep, [facility] [address] [address]- 3163 Sep, Paranoid schizophrenia F20.0 ; Posttraumatic stress disorder F43.10 and Attention deficit hyperactivity disorder (ADHD), inattentive type, 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 [facility] [address] [address]- 5254 Aug, Paranoid schizophrenia F20.0 [facility] [address] [address]- 5294 Aug, [facility] [address] [id number] [address]- 2019 Aug, Posttraumatic stress disorder F43.10 ; Paranoid schizophrenia F20.0 and Attention deficit hyperactivity disorder (ADHD), inattentive type, 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 [facility] [address] [address]- 2844 Jul, Bipolar disorder, unspecified F31.9 [facility] [address] [address]- 1819 Jul, [facility] [id number] [place] [address] 15009- 8474 Jun, [facility] [id number] [place] [address] 94673- 6412 Jun, Schizoaffective disorder, chronic 295.72 ; Posttraumatic stress disorder 309.81 and Attention deficit disorder 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 314.00 [facility] [address] [place] [address] 65791- 7403 May, [facility] [id number] [place] [address] 58330- 8338 May, [facility] [id number] [place] [address] 21279- 8289 May, Schizoaffective disorder, chronic 295.72 ; Posttraumatic stress disorder 309.81 ; Attention deficit disorder 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 314.00 and Bipolar disorder, unspecified 296.80 [facility] [address] [place] [address] 28597- 3203 Apr, Schizoaffective disorder, chronic 295.72 [facility] [address] [place] [address] 95327- 8722 Apr, [facility] [id number] [place] [address] 52193- 1536 Apr, Schizoaffective disorder, chronic 295.72 ; Posttraumatic stress disorder 309.81 and Attention deficit disorder 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 314.00 [facility] [address] [address]- 9537 Mar, Disorganized schizophrenia, 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 [facility] [address] [id number] [address]- 3284 Mar, [facility] [address] [address]- 9169 Mar, [facility] [address] [address]- 5856 Mar, [facility] [address] [address]- 6457 Mar, [facility] [address] [address]- 7039 February, Schizoaffective disorder, chronic 295.72 [facility] [address] [place] [address] 68339- 1375 February, [facility] [address] [address]- 4339 February, Attention deficit disorder 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 314.00 ; Posttraumatic stress disorder 309.81 and Schizoaffective disorder, chronic 295.72 [facility] [address] [address]- 7832 29 Jan, 2015 [facility] [address] [address]- 9884 14 Jan, 2015 [facility] [address] [id number] [address] Jan, [facility] [id number] [address] Dec, [facility] [id number] [address]99 Dec, [facility] [id number] [address] Dec, [facility] [id number] [address] 8566 Dec, [facility] [id number] [address]32 Dec, [facility] [place] [facility] [address] [id number] [place] [address]12 Dec, [facility] [place] [facility] [address] [id number] [place] [address]- 0486 Dec, [facility] [place] [facility] [address] [id number] [place] [address]- 4768 Dec, [facility] [place] [facility] [address] [id number] [place] [address]- 2803 Nov, [facility] [place] [facility] [address] [id number] [place] [address]- 2821 Nov, [facility] [place] [facility] [address] [id number] [place] [address]- 3237 Nov, [facility] [place] [facility] [address] [id number] [place] [address]- 8610 Nov, [facility] [place] [facility] [address] [id number] [place] [address]- 5750 Nov, [facility] [place] [facility] [address] [id number] [place] [address]- 5212 Nov, [facility] [place] [facility] [address] [facility] [id number] [place] [address]- 9886 Nov, [facility] [place] [facility] [address] [facility] [id number] [place] [address]- 9146 Nov, [facility] [place] [facility] [address] [facility] [id number] [place] [address]- 7795 Nov, [facility] [place] [facility] [address] [id number] [place] [address]- 6217 Nov, [facility] [place] [facility] [address] [facility] [id number] [place] [address]- 9409 Oct, [facility] [place] [facility] [address] [facility] [id number] [place] [address]- 8644 Oct, [facility] [place] [facility] [address] [id number] [place] [address]- 4695 28 Oct, 2014 [facility] [place] [facility] [address] [id number] [place] [address]- 2892 15 Oct, 2014 [facility] [place] [facility] [address] [id number] [place] [address]- 4818 15 Oct, 2014 [facility] [place] [facility] [address] [id number] [place] [address]- 1975 13 Oct, 2014 [facility] [place] [facility] [address] [id number] [place] [address]- 8541 13 Oct, 2014 [facility] [place] [facility] [address] [id number] [place] [address]- 6049 17 Sep, 2014 [facility] [place] [facility] [address] [id number] [place] [address]- 1218 17 Sep, 2014 [facility] [place] [facility] [address] [id number] [place] [address]- 7942 15 Sep, 2014 [facility] [place] [facility] [address] [id number] [place] [address]- 4320 15 Sep, 2014 [facility] [place] [facility] [address] [id number] [place] [address]- 0072 20 Aug, 2014 [facility] [place] [facility] [address] [id number] [place] [address]- 2730 20 Aug, 2014 [facility] [place] [facility] [address] [id number] [place] [address]- 8880 14 Aug, 2014 [facility] [place] [facility] [address] [id number] [place] [address]- 3824 14 Aug, 2014 [facility] [place] [facility] [address] [id number] [place] [address]- 9919 14 Aug, 2014 [facility] [place] [facility] [address] [id number] [place] [address]- 7040 14 Aug, 2014 [facility] [place] [facility] [address] [id number] [place] [address]- 2725 29 Jul, 2014 [facility] [place] [facility] [address] [id number] [place] [address]- 8804 29 Jul, 2014 [facility] [place] [facility] [address] [id number] [place] [address]- 1726 24 Jul, 2014 [facility] [place] [facility] [address] [id number] [place] [address]- 5677 24 Jul, 2014 [facility] [place] [facility] [address] [id number] [place] [address]- 2671 15 Jul, 2014 [facility] [place] [facility] [address] [id number] [place] [address]- 6163 15 Jul, 2014 [facility] [place] [facility] [address] [id number] [place] [address]- 6824 27 Jun, 2013 [facility] [place] [facility] [address] [id number] [place] [address]- 1063 27 Jun, 2013 [facility] [place] [facility] [address] [id number] [address]- 1237 26 Jun, 2013 [facility] [place] [facility] [address] [id number] [place] [address]- 4580 26 Jun, 2013 [facility] [place] [facility] [address] [id number] [place] [address]- 9839 26 Jun, 2013 [facility] [place] [facility] [address] [id number] [place] [address]- 5284 26 Sep, 2013 [facility] [place] [facility] [address] [id number] [address]- 2543 16 Sep, 2013 [facility] [place] [facility] [address] [id number] [place] [address]- 2546 16 Sep, 2013 [facility] [place] [facility] [address] [id number] [address]- 2543 16 Sep, 2013 [facility] [place] [facility] [address] [id number] [place] [address]- 2549 16 Sep, 2013 [facility] [place] [facility] [address] [id number] [place] [address]- 3843 Jun, [facility] [place] [facility] [address] [id number] [place] [address]- 9460 May, [facility] [place] [facility] [address] [id number] [place] [address]- 5451 May, [facility] [place] [facility] [address] [id number] [place] [address]- 1871 May, [facility] [place] [facility] [address] [id number] [place] [address]- 1297 May, [facility] [place] [facility] [address] [id number] [place] [address]- 4315 May, [facility] [place] [facility] [address] [id number] [place] [address]- 0071 May, [facility] [place] [facility] [address] [id number] [place] [address]- 3819 May, [facility] [place] [facility] [address] [id number] [place] [address]- 4794 May, [facility] [place] [facility] [address] [id number] [place] [address]- 2844 May, [facility] [place] [facility] [address] [id number] [place] [address]- 9908 May, [facility] [place] [facility] [address] [id number] [place] [address]- 7371 Apr, [facility] [place] [facility] [address] [id number] [place] [address]- 0389 Apr, [facility] [place] [facility] [address] [id number] [place] [address]- 4031 Apr, [facility] [place] [facility] [address] [id number] [place] [address]- 1285 Apr, [facility] [place] [facility] [address] [id number] [place] [address]- 7292 Apr, [facility] [place] [facility] [address] [id number] [place] [address]- 0606 Apr, [facility] [place] [facility] [address] [id number] [place] [address]- 1684 Apr, [facility] [place] [facility] [address] [id number] [place] [address]- 4287 Apr, [facility] [place] [facility] [address] [id number] [place] [address]- 1579 Apr, [facility] [place] [facility] [address] [id number] [place] [address]- 5017 Apr, [facility] [place] [facility] [address] [id number] [place] [address]- 8317 Mar, [facility] [place] [facility] [address] [id number] [place] [address]- 2923 Mar, [facility] [place] [facility] [address] [id number] [place] [address]- 3995 Mar, [facility] [place] [facility] [address] [id number] [place] [address]- 2830 Mar, [facility] [place] [facility] [address] [id number] [place] [address]- 8145 Mar, [facility] [place] [facility] [address] [id number] [place] [address]- 9579 Mar, [facility] [place] [facility] [address] [id number] [place] [address]- 6747 18 Mar, 2014 [facility] [place] [facility] [address] [id number] [place] [address]- 6832 Mar, [facility] [place] [facility] [address] [id number] [place] [address]- 4019 16 Mar, 2014 [facility] [place] [facility] [address] [id number] [place] [address]- 8387 13 Mar, 2014 [facility] [place] [facility] [address] [id number] [place] [address]- 3087 Mar, [facility] [place] [facility] [address] [id number] [place] [address]- 5797 Mar, [facility] [place] [facility] [address] [id number] [place] [address]- 7129 Mar, [facility] [place] [facility] [address] [id number] [place] [address]- 5253 Mar, [facility] [place] [facility] [address] [id number] [place] [address]- 5769 Mar, [facility] [place] [facility] [address] [id number] [place] [address]- 7145 Mar, [facility] [place] [facility] [address] [id number] [place] [address]- 2233 Mar, [facility] [place] [facility] [address] [id number] [place] [address]- 4377 Mar, [facility] [place] [facility] [address] [id number] [place] [address]- 2358 Mar, [facility] [place] [facility] [address] [id number] [place] [address]- 3782 Mar, [facility] [place] [facility] [address] [id number] [place] [address]- 8957 February, [facility] [place] [facility] [address] [id number] [place] [address]- 0459 February, [facility] [place] [facility] [address] [id number] [place] [address]- 9903 February, [facility] [place] [facility] [address] [id number] [place] [address]- 9207 February, [facility] [place] [facility] [address] [id number] [place] [address]- 4617 February, [facility] [place] [facility] [address] [id number] [place] [address]- 3607 February, [facility] [place] [facility] [address] [id number] [place] [address]- 4503 February, [facility] [address] [id number] [place] February, [facility] [address] [id number] [place] [address]- 7491 February, [facility] [address] [id number] [place] [address]- 8983 February, [facility] [address] [id number] [place] [address]- 2550 February, [facility] [address] [id number] [place] [address]- 8285 February, [facility] [address] [id number] [place] [address]- 7600 February, [facility] [address] [id number] [place] [address]- 0453 February, [facility] [address] [id number] [place] [address]- 8938 February, [facility] [address] [id number] [place] [address]- 0899 February, [facility] [address] [id number] [place] [address]- 6876 February, [facility] [address] [id number] [place] [address]- 8923 February, [facility] [address] [id number] [place] [address]- 9672 February, [facility] [place] [facility] [address] [id number] [place] [address]- 5192 February, [facility] [address] [id number] [place] [address]- 3536 February, [facility] [address] [id number] [place] Jan, [facility] [place] [facility] [address] [id number] [place] [address]- 4860 30 Jan, 2014 [facility] [place] [facility] [address] [id number] [place] [address]- 5617 18 Jan, 2014 [facility] [place] [facility] [address] [id number] [place] [address]- 5263 Jan, [facility] [place] [facility] [address] [id number] [place] [address]- 8622 Jan, [facility] [place] [facility] [address] [id number] [place] [address]- 0452 Jan, [facility] [place] [facility] [address] [id number] [place] [address]- 8562 Jan, [facility] [place] [facility] [address] [id number] [place] [address]- 6865 Jan, [facility] [place] [facility] [address] [id number] [place] [address]- 0816 21 Dec, 2013 [facility] [place] [facility] [address] [id number] [place] [address]- 2410 20 Dec, 2013 [facility] [place] [facility] [address] [id number] [place] [address]- 3190 20 Dec, 2013 [facility] [place] [facility] [address] [id number] [place] [address]- 9691 19 Dec, 2013 [facility] [place] [facility] [address] [id number] [place] [address]- 4374 19 Dec, 2013 [facility] [place] [facility] [address] [id number] [place] [address]- 5273 15 Dec, 2013 [facility] [place] [facility] [address] [id number] [place] [address]- 5074 15 Dec, 2013 [facility] [place] [facility] [address] [id number] [place] [address]- 1955 11 Dec, 2013 [facility] [place] [facility] [address] [id number] [address]- 9550 Dec, [facility] [place] [facility] [address] [id number] [place] [address]- 1531 Dec, [facility] [place] [facility] [address] [id number] [place] [address]- 1006 Nov, [facility] [place] [facility] [address] [id number] [place] [address]- 5016 Nov, [facility] [place] [facility] [address] [id number] [place] [address]- 5727 Nov, [facility] [place] [facility] [address] [id number] [place] [address]- 9158 Nov, [facility] [place] [facility] [address] [id number] [place] [address]- 6374 Nov, [facility] [place] [facility] [address] [id number] [place] [address]- 0269 Oct, [facility] [place] [facility] [address] [id number] [place] [address]- 5659 Oct, [facility] [place] [facility] [address] [id number] [place] [address]- 0483 Oct, [facility] [place] [facility] [address] [facility] [id number] [place] [address]- 0950 Sep, [facility] [place] [facility] [address] [id number] [place] [address]- 6576 Sep, [facility] [place] [facility] [address] [id number] [place] [address]- 0822 Sep, [facility] [place] [facility] [address] [id number] [place] [address]- 8263 Sep, [facility] [place] [facility] [address] [id number] [place] [address]- 4343 Aug, [facility] [place] [facility] [address] [id number] [place] [address]- 1313 Aug, [facility] [place] [facility] [address] [id number] [place] [address]- 0653 Jul, [facility] [place] [facility] [address] [id number] [place] [address]- 2899 Jul, [facility] [place] [facility] [address] [id number] [place] [address]- 8445 Jul, [facility] [place] [facility] [address] [id number] [place] [address]- 0330 Jul, [facility] [address] [id number] [place] [address]- 8751 Jul, [facility] [place] [facility] [address] [id number] [place] [address]- 3193 Jun, [facility] [address] [id number] [place] [address]- 9528 25 Jun, 2013 [facility] [place] [facility] [address] [id number] [place] [address]- 6715 19 Jun, 2013 [facility] [place] [facility] [address] [id number] [place] [address]- 6998 18 Jun, 2013 [facility] [place] [facility] [address] [id number] [place] [address]- 3707 16 Jun, 2013 [facility] [place] [facility] [address] [id number] [place] [address]- 2093 12 Jun, 2013 [facility] [place] [facility] [address] [id number] [place] [address]- 3027 Jun, [facility] [place] [facility] [address] [id number] [place] [address]- 9544 30 May, 2013 [facility] [place] [facility] [address] [id number] [place] [address]- 4670 May, [facility] [place] [facility] [address] [id number] [place] [address]- 4547 Apr, [facility] [place] [facility] [address] [id number] [place] [address]- 9405 Apr, [facility] [address] [id number] [place] [address]- 2050 Apr, [facility] [place] [facility] [address] [id number] [place] [address]- 7148 Mar, [facility] [place] [facility] [address] [id number] [place] [address]- 3191 Mar, [facility] [place] [facility] [address] [id number] [place] [address]- 4558 February, [facility] [place] [facility] [address] [id number] [place] [address]- 0791 February, [facility] [place] [facility] [address] [id number] [place] [address]- 3838 February, [facility] [place] [facility] [address] [id number] [place] [address]- 9340 February, [facility] [place] [facility] [address] [id number] [place] [address]- 8011 Jan, [facility] [place] [facility] [address] [id number] [place] [address]- 6434 Jan, [facility] [place] [facility] [address] [id number] [place] [address]- 7716 Jan, [facility] [place] [facility] [address] [id number] [place] [address]- 6354 Dec, [facility] [place] [facility] [address] [id number] [place] [address]- 3324 Dec, [facility] [place] [facility] [address] [id number] [place] [address]- 9703 Dec, [facility] [place] [facility] [address] [id number] [place] [address]- 2991 Dec, [facility] [place] [facility] [address] [id number] [place] [address]- 1498 Nov, [facility] [place] [facility] [address] [id number] [place] [address] 2546 13 Nov, 2012 [facility] [place] [facility] [address] [id number] [place] [address]- 1673 Oct, [facility] [place] [facility] [address] [id number] [place] [address] 2546 Oct, [facility] [place] [facility] [address] [id number] [place] [address]- 6126 Oct, [facility] [place] [facility] [address] [id number] [place] [address] 2546 Oct, [facility] [place] [facility] [address] [id number] [place] [address]- 5246 Aug, [facility] [place] [facility] [address] [id number] [place] [address]- 1426 Aug, [facility] [place] [facility] [address] [id number] [place] [address]- 0522 Jun, [facility] [place] [facility] [address] [id number] [place] [address]- 1022 May, [facility] [place] [facility] [address] [id number] [place] [address] May, [facility] [place] [facility] [address] [id number] [place] [address] Apr, [facility] [place] [facility] [address] [id number] [place] [address] Apr, [facility] [place] [facility] [address] [id number] [place] [address] Apr, [facility] [place] [facility] [address] [id number] [place] [address] Mar, [facility] [place] [facility] [address] [id number] [place] [address] Mar, [facility] [place] [facility] [address] [id number] [place] [address] Mar, [facility] [address] [id number] [place] [address] Mar, [facility] [place] [facility] [address] [id number] [place] [address] Mar, [facility] [place] [facility] [address] [id number] [place] [address] February, [facility] [place] [facility] [address] [id number] [place] [address] February, [facility] [place] [facility] [address] [id number] [place] [address] February, [facility] [place] [facility] [address] [id number] [place] [address] February, [facility] [place] [facility] [address] [id number] [place] [address] February, [facility] [place] [facility] [address] [id number] [place] [address] February, [facility] [place] [facility] [address] [id number] [place] [address] February, [facility] [place] [facility] [address] [id number] [place] [address] Jan, [facility] [place] [facility] [address] [id number] [place] [address] 18 Jan, 2012 [facility] [place] [facility] [address] [id number] [place] [address] 17 Jan, 2012 [facility] [place] [facility] [address] [id number] [place] [address] 13 Jan, 2012 [facility] [place] [facility] [address] [id number] [place] [address] 10 Jan, 2012 [facility] [place] [facility] [address] [id number] [place] [address] 04 Jan, 2012 [facility] [place] [facility] [address] [id number] [place] [address] 30 Dec, 2011 [facility] [address] [id number] [place] [address] 24 Dec, 2011 [facility] [place] [facility] [address] [id number] [place] [address] 20 Dec, 2011 [facility] [place] [facility] [address] [id number] [place] [address] 13 Dec, 2011 [facility] [place] [facility] [address] [id number] [place] [address] 06 Dec, 2011 [facility] [place] [facility] [address] [id number] [place] [address] 28 Nov, 2011 [facility] [place] [facility] [address] [id number] [place] [address] 27 Nov, 2011 [facility] [place] [facility] [address] [id number] [place] [address] 25 Nov, 2011 [facility] [place] [facility] [address] [id number] [place] [address] 14 Nov, 2011 [facility] [place] [facility] [address] [id number] [place] [address] Nov, [facility] [place] [facility] [address] [id number] [place] [address] Nov, [facility] [place] [facility] [address] [id number] [place] [address] Oct, [facility] [place] [facility] [address] [id number] [place] [address] Oct, [facility] [place] [facility] [address] [id number] [place] [address] Oct, [facility] [place] [facility] [address] [id number] [place] [address]46 Oct, [facility] [place] [facility] [address] [id number] [place] [address] Oct, [facility] [place] [facility] [address] [id number] [place] [address] Sep, [facility] [place] [facility] [address] [id number] [place] [address] Sep, [facility] [place] [facility] [address] [id number] [place] [address] Sep, [facility] [place] [facility] [address] [id number] [place] [address] 14 Sep, 2011 [facility] [place] [facility] [address] [id number] [place] [address] 14 Sep, 2011 [facility] [place] [facility] [address] [id number] [place] [address] Sep, [facility] [place] [facility] [address] [id number] [place] [address] Sep, [facility] [place] [facility] [address] [id number] [place] [address] Sep, [facility] [place] [facility] [address] [id number] [place] [address] Sep, [facility] [place] [facility] [address] [id number] [place] [address] 30 Aug, 2011 [facility] [place] [facility] [address] [id number] [place] [address] Aug, [facility] [place] [facility] [address] [id number] [place] [address] Aug, [facility] [place] [facility] [address] [id number] [place] [address] Aug, [facility] [place] [facility] [address] [id number] [place] [address] Aug, [facility] [place] [facility] [address] [id number] [place] [address] Aug, [facility] [place] [facility] [address] [id number] [place] [address] 16 Aug, 2011 [facility] [place] [facility] [address] [id number] [place] [address] 16 Aug, 2011 [facility] [place] [facility] [address] [id number] [place] [address] Aug, [facility] [place] [facility] [address] [id number] [place] [address] Aug, [facility] [place] [facility] [address] [id number] [place] [address] Aug, [facility] [place] [facility] [address] [id number] [place] [address] Aug, [facility] [place] [facility] [address] [id number] [place] [address] Jul, [facility] [place] [facility] [address] [id number] [place] [address] Jul, [facility] [place] [facility] [address] [id number] [place] [address] 24 Jul, 2011 [facility] [place] [facility] [address] [id number] [place] [address] Jul, [facility] [place] [facility] [address] [id number] [place] [address] Jul, [facility] [place] [facility] [address] [id number] [place] [address] 19 Jul, 2011 [facility] [place] [facility] [address] [id number] [place] [address] 18 Jul, 2011 [facility] [place] [facility] [address] [id number] [place] [address] 11 Jul, 2011 [facility] [place] [facility] [address] [id number] [place] [address] 10 Jul, 2011 [facility] [place] [facility] [address] [id number] [place] [address] 10 Jul, 2011 [facility] [place] [facility] [address] [facility] [id number] [place] [address] Nov, [facility] [address] [id number] [place] [address] Aug, [facility] [address] [id number] [place] [address] Aug, [facility] [address] [id number] [place] [address] Aug, [facility] [address] [id number] [place] [address] Aug, [facility] [address] [id number] [place] [address] Jul, IMMUNIZATIONS No Known Immunizations SOCIAL HISTORY Never Assessed REASON FOR VISIT Requests return call PLAN OF CARE VITAL SIGNS MEDICATIONS Medication Instructions Dosage Frequency Start Date End Date Duration Status Seroquel 200 MG Orally Once a day at bedtime for sleep 1 tablet Aug, 30 days Active RESULTS No Results PROCEDURES No Known procedures INSTRUCTIONS MEDICATIONS ADMINISTERED No Known Medications MEDICAL (GENERAL) HISTORY Type Description Date Medical History diabetes Medical History thyroid Surgical History appendix Surgical History gallbladder Surgical History eyes Surgical History hip Surgical History MRI on back and pelvis 06/08 Hospitalization History surgeries Hospitalization History [facility] Suicide attempt by hanging 06/14/2016 Hospitalization History [facility] 01/30/2018-02/10/2008 Hospitalization History [facility] 05/04/18-05/09/18
--- OUTSIDE RECORDS SUMMARY | 2018-08-15 20:35 | XMS REPORT ---
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 597136382 Problem Borderline personality disorder F60.3 Active 84546974 Problem High risk medication use Z79.899 Active 276456772 Problem Schizoaffective disorder, unspecified F25.9 Active 86550116 Problem Paranoid schizophrenia F20.0 Active 52893567 Problem Posttraumatic stress disorder F43.10 Active 93656908 Problem Attention deficit hyperactivity disorder (ADHD), inattentive type, 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 66934956 Problem Posttraumatic stress disorder 309.81 Active 98052605 Problem Obsessive-compulsive disorders 300.3 Active 219723510 Problem Generalized anxiety disorder 300.02 Active 63785438 Problem Attention deficit disorder 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 314.00 Active 27323234 Problem Bipolar disorder, unspecified 296.80 Active 54302962 ALLERGIES No Information ENCOUNTERS Encounter Location Date Diagnosis [facility] [id number], [place] [address] Mar, [facility] [id number], [place] [address] February, Paranoid schizophrenia F20.0 [facility] [id number] [place] [address] 60[address]- 1428 February, Paranoid schizophrenia F20.0 ; Posttraumatic stress disorder F43.10 ; Attention deficit hyperactivity disorder (ADHD), inattentive type, 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 and Borderline personality disorder F60.3 [facility] [id number], [place] [address] February, Paranoid schizophrenia F20.0 ; Posttraumatic stress disorder F43.10 ; Attention deficit hyperactivity disorder (ADHD), inattentive type, 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 and Borderline personality disorder F60.3 [facility] [address], [place] [address] February, [facility] [id number] [place] [address] 79302- 6266 February, Paranoid schizophrenia F20.0 [facility] [id number] [place] [address] 21298- 0122 February, Paranoid schizophrenia F20.0 [facility] [id number], [place] [address] 6[address] February, Paranoid schizophrenia F20.0 ; Posttraumatic stress disorder F43.10 ; Attention deficit hyperactivity disorder (ADHD), inattentive type, 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 and Borderline personality disorder F60.3 [facility] [id number], [place] [address] Jan, Paranoid schizophrenia F20.0 ; Posttraumatic stress disorder F43.10 ; Attention deficit hyperactivity disorder (ADHD), inattentive type, 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 and Borderline personality disorder F60.3 [facility] [address], [place] [address] Jan, Paranoid schizophrenia F20.0 [facility] [id number], [place] [address] 05[address] Jan, Paranoid schizophrenia F20.0 [facility] [address], [place] [address] 67[address] Jan, Paranoid schizophrenia F20.0 ; Posttraumatic stress disorder F43.10 ; Attention deficit hyperactivity disorder (ADHD), inattentive type, 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 and Borderline personality disorder F60.3 [facility] [id number], [place] [address] 59[address] Dec, [facility] [address], [place] [address] 4[address] Nov, Paranoid schizophrenia F20.0 ; Posttraumatic stress disorder F43.10 ; Attention deficit hyperactivity disorder (ADHD), inattentive type, 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 and Borderline personality disorder F60.3 [facility] [address], [place] [address] Nov, [facility] [address], [place] [address]- 2469 Oct, Paranoid schizophrenia F20.0 [facility] [address] [place] [address] 63664- 1146 Oct, Paranoid schizophrenia F20.0 ; Posttraumatic stress disorder F43.10 ; Attention deficit hyperactivity disorder (ADHD), inattentive type, 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 ; Borderline personality disorder F60.3 and Other manager terminal ( 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 Z79.899 [facility] [address], [place] [address] 5[address] Oct, [facility] [id number], [place] [address] Oct, [facility] [address], [place] [address]- 45[address] Sep, [facility] [address], [place] [address]- 4809 Sep, Paranoid schizophrenia F20.0 ; Posttraumatic stress disorder F43.10 ; Attention deficit hyperactivity disorder (ADHD), inattentive type, 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 and Borderline personality disorder F60.3 [facility] [address], [place] [address] 8[address] Sep, Paranoid schizophrenia F20.0 [facility] [id number], [place] [address]- 7776 Aug, Paranoid schizophrenia F20.0 ; Posttraumatic stress disorder F43.10 ; Attention deficit hyperactivity disorder (ADHD), inattentive type, 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 and Borderline personality disorder F60.3 [facility] [address], [place] [address]- 7833 Aug, Paranoid schizophrenia F20.0 ; Posttraumatic stress disorder F43.10 ; Attention deficit hyperactivity disorder (ADHD), inattentive type, 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 and Borderline personality disorder F60.3 [facility] [id number] [place] [address] 61947- 8009 Aug, [facility] [id number] [place] [address] 32304- 6053 Jul, Paranoid schizophrenia F20.0 ; Posttraumatic stress disorder F43.10 ; Attention deficit hyperactivity disorder (ADHD), inattentive type, 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 and Borderline personality disorder F60.3 [facility] [address], [place] [address]- 3944 Jul, Paranoid schizophrenia F20.0 [facility] [address], [place] [address]- 6164 Jul, Paranoid schizophrenia F20.0 ; Posttraumatic stress disorder F43.10 ; Attention deficit hyperactivity disorder (ADHD), inattentive type, 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 and Borderline personality disorder F60.3 [facility] [address], [place] [address]- 2382 Jun, Paranoid schizophrenia F20.0 ; Posttraumatic stress disorder F43.10 ; Attention deficit hyperactivity disorder (ADHD), inattentive type, 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 and Borderline personality disorder F60.3 [facility] [address], [place] [address] 9189 May, Other senior living (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 Z79.899 [facility] [address], [place] [address]- 55[address] May, [facility] [address] [place] [address] 80077- 7851 May, [facility] [address], [place] [address]- 4357 May, Attention deficit hyperactivity disorder (ADHD), inattentive type, 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 [facility] [address], [place] [address]- 54[address] May, [facility] [address], [place] [address]- 5204 May, Attention deficit hyperactivity disorder (ADHD), inattentive type, 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 [facility] [address], [place] [address]- 4249 May, Paranoid schizophrenia F20.0 ; Posttraumatic stress disorder F43.10 ; Attention deficit hyperactivity disorder (ADHD), inattentive type, 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 and Other senior living (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 Z79.899 [facility] [address], [place] [address]- 8301 Apr, Paranoid schizophrenia F20.0 [facility] [address], [place] [address]- 4018 Apr, Paranoid schizophrenia F20.0 ; Posttraumatic stress disorder F43.10 and Attention deficit hyperactivity disorder (ADHD), inattentive type, 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 [facility] [address], [place] [address]- 365[address] February, [facility] [address], [place] [address]- 8196 February, Paranoid schizophrenia F20.0 ; Posttraumatic stress disorder F43.10 and Attention deficit hyperactivity disorder (ADHD), inattentive type, 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20 [facility] [id number] [id number] Nov, Dental examination Z01.20 [facility] [id number] [place] [address] [id number] Nov, Dental examination Z01.20 [facility] [id number] [place] [address] [id number] Nov, Dental caries K02.9 [facility] [address] [place] [address] 10243- 5324 13 Nov, 2016 High risk medication use Z79.899 [facility] [address] [place] [address] 61180- 2965 Nov, Paranoid schizophrenia F20.0 ; Posttraumatic stress disorder F43.10 ; Attention deficit hyperactivity disorder (ADHD), inattentive type, 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 and Borderline personality disorder in adult F60.3 [facility] [id number] [id number] Oct, Dental caries K02.9 [facility] [address] [place] [address] 29492- 3750 05 Sep, 2016 Paranoid schizophrenia F20.0 ; Posttraumatic stress disorder F43.10 and Attention deficit hyperactivity disorder (ADHD), inattentive type, 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 [facility] [address] [place] [address] 23108- 5304 16 Aug, 2016 Paranoid schizophrenia F20.0 ; Posttraumatic stress disorder F43.10 and Attention deficit hyperactivity disorder (ADHD), inattentive type, 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 [facility] [address], [place] [address] Aug, Strep throat J02.0 and Cough R05 [facility] [id number] [place] [address] 40539- 8800 Aug, [facility] [id number] [place] [address] 37140- 7136 Jul, Paranoid schizophrenia F20.0 ; Posttraumatic stress disorder F43.10 and Attention deficit hyperactivity disorder (ADHD), inattentive type, 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 [facility] [id number] [place] [address] 57455- 7782 Jul, [facility] [id number] [place] [address] 13857- 4961 Jun, Paranoid schizophrenia F20.0 ; Posttraumatic stress disorder F43.10 and Attention deficit hyperactivity disorder (ADHD), inattentive type, 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 [facility] [id number] [place] [address] [id number] Jun, Dental examination Z01.20 [facility] [id number] [place] [address] 00323- 4090 Jun, [facility] [id number] [place] [address] 89184- 3378 May, Paranoid schizophrenia F20.0 [facility] [id number] [place] [address] 34279- 4787 May, Paranoid schizophrenia F20.0 ; Posttraumatic stress disorder F43.10 and Attention deficit hyperactivity disorder (ADHD), inattentive type, 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 [facility] [address], [place] [address]- 6065 May, [facility] [id number] [place] [address] 17720- 5117 May, Paranoid schizophrenia F20.0 [facility] [address] [place] [address] 03134- 6170 May, [facility] [id number], [place] [address]- 5130 May, Paranoid schizophrenia F20.0 [facility] [address] [facility] [id number] [address]- 5[address] May, Schizoaffective disorder, unspecified F25.9 [facility] [id number], [place] [address]- 4536 May, Schizoaffective disorder, unspecified F25.9 [facility] [id number], [place] [address]- 7485 May, [facility] [id number] [place] [address] 04620- 8416 May, Paranoid schizophrenia F20.0 [facility] [id number], [place] [address]- 9479 May, Paranoid schizophrenia F20.0 ; Posttraumatic stress disorder F43.10 and Attention deficit hyperactivity disorder (ADHD), inattentive type, 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 [facility] [id number], [place] [address]- 4914 Mar, [facility] [address], [place] [address]- 6888 Mar, Paranoid schizophrenia F20.0 ; Posttraumatic stress disorder F43.10 and Attention deficit hyperactivity disorder (ADHD), inattentive type, 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 [facility] [id number], [place] [address]- 4628 16 Mar, 2016 Paranoid schizophrenia F20.0 [facility] [id number], [place] [address]- 9205 Mar, Paranoid schizophrenia F20.0 ; Attention deficit hyperactivity disorder (ADHD), inattentive type, 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 and Posttraumatic stress disorder F43.10 [facility] [id number], [place] [address]- 6960 Mar, [facility] [id number], [place] [address]- 6980 Mar, Paranoid schizophrenia F20.0 ; Posttraumatic stress disorder F43.10 and Attention deficit hyperactivity disorder (ADHD), inattentive type, 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 [facility] [address], [place] [address]- 2091 February, [facility] [id number] [place] [address] 05424- 7822 February, [facility] [id number] [place] [address] 10459- 3338 February, [facility] [id number] [place] [address] 07778- 6436 February, [facility] [id number] [place] [address] 52822- 9945 Jan, Paranoid schizophrenia F20.0 [facility] [id number] [place] [address] [id number] Jan, Dental examination Z01.20 [facility] [id number] [place] [address] [id number] Jan, Dental caries K02.9 [facility] [id number] [place] [address] [id number] Jan, Dental examination Z01.20 [facility] [id number] [place] [address] [id number] Dec, Encounter for dental examination Z01.20 [facility] [address] [place] [address] 87625- 8498 Dec, Paranoid schizophrenia F20.0 [facility] [id number] [place] [address] [id number] Dec, Dental examination Z01.20 [facility] [id number] [address] 3809 Dec, [facility] [id number] [place] [address] 31170- 6668 Dec, Paranoid schizophrenia F20.0 ; Posttraumatic stress disorder F43.10 and Attention deficit hyperactivity disorder (ADHD), inattentive type, 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 [facility] [id number], [place] [address]- 7827 Sep, [facility] [id number] [place] [address] 48087- 0179 Sep, Paranoid schizophrenia F20.0 ; Posttraumatic stress disorder F43.10 and Attention deficit hyperactivity disorder (ADHD), inattentive type, 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 [facility] [address], [place] [address]- 1223 Aug, Paranoid schizophrenia F20.0 [facility] [address], [place] [address]- 1964 Aug, [facility] [id number], [place] [address]- 7841 Aug, Posttraumatic stress disorder F43.10 ; Paranoid schizophrenia F20.0 and Attention deficit hyperactivity disorder (ADHD), inattentive type, 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 [facility] [id number], [place] [address]- 0811 Jul, Bipolar disorder, unspecified F31.9 [facility] [id number], [place] [address]- 9529 Jul, [facility] [address], [place] [address]- 4166 Jun, [facility] [address], [place] [address]- 4492 Jun, Schizoaffective disorder, chronic 295.72 ; Posttraumatic stress disorder 309.81 and Attention deficit disorder 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 314.00 [facility] [address], [place] [address]- 7763 May, [facility] [address] [place] [address] 42703- 3771 May, [facility] [address], [place] [address]- 8273 May, Schizoaffective disorder, chronic 295.72 ; Posttraumatic stress disorder 309.81 ; Attention deficit disorder 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 314.00 and Bipolar disorder, unspecified 296.80 [facility] [address], [place] [address]- 2012 Apr, Schizoaffective disorder, chronic 295.72 [facility] [address], [place] [address]- 2063 Apr, [facility] [address], [place] [address]- 9344 Apr, Schizoaffective disorder, chronic 295.72 ; Posttraumatic stress disorder 309.81 and Attention deficit disorder 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 314.00 [facility] [address], [place] [address]- 7112 Mar, Disorganized schizophrenia, 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 [facility] [address], [place] [address]- 3103 Mar, [facility] [id number], [place] [address]- 6149 Mar, [facility] [id number], [place] [address] 2546 Mar, [facility] [address], [place] [address]- 2596 Mar, [facility] [address], [place] [address]- 9496 February, Schizoaffective disorder, chronic 295.72 [facility] [id number] [place] [address] 52610- 7236 February, [facility] [address], [place] [address]- 9750 February, Attention deficit disorder 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 314.00 ; Posttraumatic stress disorder 309.81 and Schizoaffective disorder, chronic 295.72 [facility] [address], [place] [address]- 6898 Jan, [facility] [id number], [place] [address]- 5957 14 Jan, 2015 [facility] [address], [place] [address]- 3732 Jan, [facility] [address], [place] [address]- 3806 Dec, [facility] [address], [place] [address]- 3833 Dec, [facility] [address], [place] [address] 2546 Dec, [facility] [address], [place] [address] 2548 Dec, [facility] [address], [place] [address] 2546 Dec, [facility] [address], [place] [address]- 2546 Dec, [facility] [address], [place] [address]- 2736 Dec, [facility] [place] [facility] [address] [facility] [id number] [place] [address]- 7019 Dec, [facility] [place] [facility] [address] [facility] [id number] [place] [address]- 1282 Nov, 2014 [facility] [place] [facility] [address] [facility] [id number] [place] [address]- 7566 Nov, 2014 [facility] [place] [facility] [address] [facility] [id number] [place] [address]- 6472 Nov, 2014 [facility] [place] [facility] [address] [facility] [id number] [place] [address]- 2388 Nov, 2014 [facility] [place] [facility] [address] [facility] [id number] [place] [address]- 0140 Nov, 2014 [facility] [place] [facility] [id number] [place] [address]- 3578 Nov, 2014 [facility] [place] [facility] [address] [facility] [id number] [place] [address]- 0588 Nov, [facility] [place] [facility] [address] [facility] [id number] [place] [address]- 1350 Nov, 2014 [facility] [place] [facility] [address] [facility] [id number] [place] [address]- 9408 Nov, [facility] [place] [facility] [address] [facility] [id number] [place] [address]- 7111 Nov, [facility] [place] [facility] [address] [facility] [id number], [place] [address]- 9797 Oct, [facility] [place] [facility] [address] [facility] [id number], [place] [address]- 0572 Oct, [facility] [place] [facility] [address] [facility] [id number], [place] [address]- 1072 Oct, [facility] [place] [facility] [address] [facility] [id number], [place] [address]- 5678 Oct, [facility] [place] [facility] [address] [id number] [place] [address]- 0430 15 Oct, 2014 [facility] [place] [facility] [address] [id number] [place] [address]- 3288 Oct, [facility] [place] [facility] [address] [id number] [place] [address]- 5797 13 Oct, 2014 [facility] [place] [facility] [address] [id number] [place] [address]- 9284 17 Sep, 2014 [facility] [place] [facility] [address] [id number] [place] [address] 17 Sep, 2014 [facility] [place] [facility] [address] [id number] [place] [address] 15 Sep, 2014 [facility] [place] [facility] [address] [id number] [place] [address] 15 Sep, 2014 [facility] [place] [facility] [address] [id number] [place] [address] Aug, [facility] [place] [facility] [address] [id number] [place] [address] 20 Aug, 2014 [facility] [place] [facility] [address] [id number] [place] [address] 14 Aug, 2014 [facility] [place] [facility] [address] [id number] [place] [address] 7918 14 Aug, 2014 [facility] [place] [facility] [address] [id number] [place] [address] 5426 14 Aug, 2014 [facility] [place] [facility] [address] [id number] [place] [address] 8285 Aug, [facility] [place] [facility] [address] [id number] [place] [address] 3052 Jul, [facility] [place] [facility] [address] [id number] [place] [address] 9712 29 Jul, 2014 [facility] [place] [facility] [address] [id number], [place] [address] 47[address] 24 Jul, 2014 [facility] [place] [facility] [address] [id number] [place] [address] 4022 24 Jul, 2014 [facility] [place] [facility] [address] [id number] [place] [address]- 7333 15 Jul, 2014 [facility] [place] [facility] [address] [id number] [place] [address] 8762 15 Jul, 2014 [facility] [place] [facility] [address] [id number], [place] [address] 27 Jun, 2013 [facility] [place] [facility] [address] [id number] [place] [address] 4131 27 Jun, 2013 [facility] [place] [facility] [address] [id number] [place] [address]- 3308 26 Jun, 2013 [facility] [place] [facility] [address] [id number] [place] [address]- 2672 26 Jun, 2013 [facility] [place] [facility] [address] [id number] [place] [address]- 1089 26 Jun, 2013 [facility] [place] [facility] [address] [id number] [place] [address]- 6428 26 Jun, 2013 [facility] [place] [facility] [address] [id number] [place] [address]- 2549 16 Jun, 2013 [facility] [place] [facility] [address] [id number], [place] [address] 36[address] 16 Jun, 2013 [facility] [place] [facility] [address] [id number], [place] [address]- 2540 16 Jun, 2013 [facility] [place] [facility] [address] [id number] [place] [address] 2541 16 Jun, 2013 [facility] [place] [facility] [address] [id number] [place] [address]- 0456 04 Jun, 2013 [facility] [place] [facility] [address] [id number] [place] [address]- 4882 29 May, 2014 [facility] [place] [facility] [address] [id number] [place] [address]- 1138 May, [facility] [place] [facility] [address] [id number] [place] [address]- 9277 May, [facility] [place] [facility] [address] [id number] [place] [address]- 9646 May, [facility] [place] [facility] [address] [id number] [place] [address]- 0141 May, [facility] [place] [facility] [address] [id number] [place] [address]- 7475 May, [facility] [place] [facility] [address] [id number] [place] [address]- 5947 May, [facility] [place] [facility] [address] [id number] [place] [address]- 3236 May, [facility] [place] [facility] [address] [id number] [place] [address]- 5590 May, [facility] [place] [facility] [address] [id number] [place] [address]- 8609 May, [facility] [place] [facility] [address] [id number] [place] [address]- 0186 Apr, [facility] [place] [facility] [address] [id number] [place] [address]- 7016 Apr, [facility] [place] [facility] [address] [id number] [place] [address]- 1803 Apr, [facility] [place] [facility] [address] [id number] [place] [address] 1910 Apr, [facility] [place] [facility] [address] [id number] [place] [address]- 2888 Apr, [facility] [place] [facility] [address] [id number] [place] [address]- 0546 Apr, [facility] [place] [facility] [address] [id number] [place] [address]- 4644 Apr, [facility] [place] [facility] [address] [id number] [place] [address]- 9937 Apr, [facility] [place] [facility] [address] [id number] [place] [address]- 1771 Apr, [facility] [place] [facility] [address] [id number] [place] [address]- 3181 Apr, [facility] [place] [facility] [address] [id number] [place] [address]- 4660 Mar, [facility] [place] [facility] [address] [id number] [place] [address]- 9334 Mar, [facility] [place] [facility] [address] [id number] [place] [address]- 0168 Mar, [facility] [place] [facility] [address] [id number] [place] [address]- 3130 Mar, [facility] [place] [facility] [address] [id number] [place] [address]- 8463 Mar, [facility] [place] [facility] [address] [id number] [place] [address]- 2562 18 Mar, 2014 [facility] [place] [facility] [address] [id number] [place] [address]- 2346 18 Mar, 2014 [facility] [place] [facility] [address] [id number] [place] [address]- 6079 16 Mar, 2014 [facility] [place] [facility] [address] [id number], [place] [address]- 1709 16 Mar, 2014 [facility] [place] [facility] [address] [id number] [place] [address]- 1488 13 Mar, 2014 [facility] [place] [facility] [address] [id number] [place] [address]- 9482 13 Mar, 2014 [facility] [place] [facility] [address] [id number] [place] [address]- 5472 11 Mar, 2014 [facility] [place] [facility] [address] [id number] [place] [address]- 7386 Mar, [facility] [place] [facility] [address] [id number] [place] [address]- 4174 Mar, [facility] [place] [facility] [address] [id number] [place] [address]- 2071 Mar, [facility] [place] [facility] [address] [id number] [place] [address]- 8266 Mar, [facility] [place] [facility] [address] [id number] [place] [address]- 9572 Mar, [facility] [place] [facility] [address] [id number] [place] [address]- 9357 Mar, [facility] [place] [facility] [address] [id number] [place] [address]- 7867 Mar, [facility] [place] [facility] [address] [id number] [place] [address]- 4366 Mar, [facility] [place] [facility] [address] [id number] [place] [address]- 6012 February, [facility] [place] [facility] [address] [id number] [place] [address]- 3106 February, [facility] [place] [facility] [address] [id number] [place] [address]- 3208 February, [facility] [place] [facility] [address] [id number] [place] [address]- 4210 February, [facility] [place] [facility] [address] [id number] [place] [address]- 8976 February, [facility] [place] [facility] [address] [id number] [place] [address]- 3489 February, [facility] [place] [facility] [address] [id number] [place] [address]- 0093 February, [facility] [place] [facility] [address] [id number] [place] [address]- 7231 February, [facility] [place] [facility] [address] [id number] [place] [address]- 1116 February, [facility] [address] [id number] [place] [address]- 9503 February, [facility] [place] [facility] [address] [id number] [place] [address]- 8786 February, [facility] [place] [facility] [address] [id number] [place] [address]- 7234 February, [facility] [place] [facility] [address] [id number] [place] [address]- 7097 February, [facility] [place] [facility] [address] [id number] [place] [address]- 6815 February, [facility] [place] [facility] [address] [id number] [place] [address]- 3327 February, [facility] [place] [facility] [address] [id number] [place] [address]- 7693 February, [facility] [place] [facility] [address] [id number] [place] [address]- 6431 February, [facility] [place] [facility] [address] [id number] [place] [address]- 9466 February, [facility] [place] [facility] [address] [id number] [place] February, [facility] [place] [facility] [address] [id number] [place] [address]- 8155 February, [facility] [place] [facility] [address] [id number] [place] [address]- 1283 February, [facility] [place] [facility] [address] [id number] [place] [address]- 1865 Jan, [facility] [place] [facility] [address] [id number] [place] [address]- 7296 Jan, [facility] [place] [facility] [address] [id number] [place] [address]- 9499 18 Jan, 2014 [facility] [place] [facility] [address] [id number] [place] [address]- 0599 18 Jan, 2014 [facility] [place] [facility] [address] [id number] [place] [address]- 6760 18 Jan, 2014 [facility] [place] [facility] [address] [id number] [place] [address]- 8289 18 Jan, 2014 [facility] [place] [facility] [address] [id number] [place] [address]- 4591 10 Jan, 2014 [facility] [place] [facility] [address] [id number] [place] [address]- 8314 10 Jan, 2014 [facility] [place] [facility] [address] [id number] [place] [address]- 7128 21 Dec, 2013 [facility] [place] [facility] [address] [id number] [place] [address]- 0639 20 Dec, 2013 [facility] [place] [facility] [address] [id number] [place] [address]- 0882 20 Dec, 2013 [facility] [place] [facility] [address] [id number] [place] [address]- 6526 19 Dec, 2013 [facility] [place] [facility] [address] [id number] [place] [address]- 3231 19 Dec, 2013 [facility] [place] [facility] [address] [id number] [place] [address]- 0261 15 Dec, 2013 [facility] [place] [facility] [address] [id number] [place] [address]- 3672 15 Dec, 2013 [facility] [place] [facility] [address] [id number] [place] [address]- 5320 11 Dec, 2013 [facility] [place] [facility] [address] [id number] [place] [address]- 3395 10 Dec, 2013 [facility] [place] [facility] [address] [id number] [place] [address]- 1609 10 Dec, 2013 [facility] [place] [facility] [address] [id number] [place] [address]- 7598 18 Nov, 2013 [facility] [address] [id number] [place] [address]- 2906 Nov, [facility] [place] [facility] [address] [id number] [place] [address]- 6406 Nov, [facility] [address] [id number] [place] [address]- 9456 Nov, [facility] [place] [facility] [address] [id number] [place] [address]- 2936 Nov, [facility] [address] [id number] [place] [address]- 5605 Oct, [facility] [address] [facility] [id number] [place] [address]- 9241 Oct, [facility] [address] [facility] [id number] [place] [address]- 3952 Oct, [facility] [address] [id number] [place] Sep, [facility] [place] [facility] [address] [facility] [id number] [place] [address]- 4607 Sep, [facility] [address] [facility] [id number] [place] [address]- 0560 Sep, [facility] [place] [facility] [address] [facility] [id number] [place] [address]- 9724 Sep, [facility] [place] [facility] [address] [id number] [place] [address]- 2064 Aug, [facility] [place] [facility] [address] [id number] [place] [address]- 5457 Aug, [facility] [place] [facility] [address] [facility] [id number] [place] [address]- 2546 Jul, [facility] [place] [facility] [address] [facility] [id number] [place]489 Jul, [facility] [place] [facility] [address] [id number] [place] [address]- 1802 Jul, [facility] [place] [facility] [address] [id number] [place] [address]- 8635 Jul, [facility] [place] [facility] [address] [id number] [place] [address]- 4635 Jul, [facility] [place] [facility] [address] [id number] [place] [address]- 0001 Jun, [facility] [place] [facility] [address] [id number] [place] [address]- 1331 25 Jun, 2013 [facility] [place] [facility] [address] [id number] [place] [address]- 2646 19 Jun, 2013 [facility] [place] [facility] [address] [id number] [place] [address]- 2242 18 Jun, 2013 [facility] [place] [facility] [address] [id number] [place] [address]- 4659 16 Jun, 2013 [facility] [place] [facility] [address] [id number] [place] [address]- 3463 12 Jun, 2013 [facility] [place] [facility] [address] [id number], [place] [address]- 4652 Jun, [facility] [place] [facility] [address] [id number], [place] [address]- 1234 May, [facility] [place] [facility] [address] [id number], [place] [address]- 7890 May, [facility] [place] [facility] [address] [id number] [place] [address]- 2298 Apr, [facility] [place] [facility] [address] [id number], [place] [address]- 3876 Apr, [facility] [place] [facility] [address] [id number], [place] [address]- 1335 Apr, [facility] [place] [facility] [address] [id number], [place] [address]- 2768 Mar, [facility] [address] [id number] [place] [address]- 4928 Mar, [facility] [address] [id number] [place] [address]- 2119 February, [facility] [address] [id number] [place] [address]- 3678 February, [facility] [address] [id number] [place] [address]- 2506 February, [facility] [address] [id number] [place] [address]- 3224 February, [facility] [address] [id number] [place] [address]- 8263 Jan, [facility] [address] [id number] [place] [address]- 7231 Jan, [facility] [address] [id number] [place] [address]- 7889 Jan, [facility] [address] [id number] [place] [address]- 6620 Dec, [facility] [address] [id number] [place] [address]- 6913 Dec, [facility] [address] [id number] [place] [address]- 7066 Dec, [facility] [address] [id number], [place] [address]- 0258 Dec, [facility] [address] [id number] [place] [address]- 0205 Nov, [facility] [address] [id number] [place] [address]955 Nov, [facility] [address] [facility] [id number], [place] [address]- 0979 Oct, [facility] [place] [facility] [address] [id number] [place] [address]- 7437 Oct, [facility] [place] [facility] [address] [id number] [place] [address]- 8703 Oct, [facility] [place] [facility] [address] [id number] [place] [address]- 8781 Oct, [facility] [place] [facility] [address] [id number] [place] [address]- 6288 Aug, [facility] [place] [facility] [address] [id number] [place] [address]- 6743 Aug, [facility] [place] [facility] [address] [id number] [place] [address]- 9731 Jun, [facility] [place] [facility] [address] [id number] [place] [address]- 1097 May, [facility] [place] [facility] [address] [id number] [place] [address]- 6961 May, [facility] [place] [facility] [address] [id number] [place] [address]- 7909 Apr, [facility] [place] [facility] [address] [id number] [place] [address]- 8733 Apr, [facility] [place] [facility] [address] [id number] [place] [address]- 9064 Apr, [facility] [place] [facility] [address] [id number] [place] [address]- 7287 Mar, [facility] [place] [facility] [address] [id number] [place] [address]- 9606 Mar, [facility] [place] [facility] [address] [id number] [place] [address]- 5542 Mar, [facility] [place] [facility] [address] [id number] [place] [address]- 2201 Mar, [facility] [place] [facility] [address] [id number] [place] [address]- 1209 Mar, [facility] [address] [id number] [place] [address]- 0727 February, [facility] [place] [facility] [address] [id number] [place] [address]- 2516 February, [facility] [place] [facility] [address] [id number] [place] [address]- 9556 February, [facility] [place] [facility] [address] [id number] [place] [address]- 5390 February, [facility] [address] [id number] [place] [address]- 9880 February, [facility] [place] [facility] [address] [id number] [place] [address]- 5076 February, [facility] [place] [facility] [address] [id number] [place] [address]- 0286 February, [facility] [place] [facility] [address] [id number] [place] [address]- 9308 Jan, [facility] [place] [facility] [address] [id number] [place] [address]- 8824 Jan, [facility] [place] [facility] [address] [id number] [place] [address]- 5504 Jan, [facility] [place] [facility] [address] [id number] [place] [address]- 2042 13 Jan, 2012 [facility] [place] [facility] [address] [id number] [place] [address]- 6867 10 Jan, 2012 [facility] [place] [facility] [address] [id number] [place] [address]- 2289 04 Jan, 2012 [facility] [place] [facility] [address] [id number] [place] [address]- 9856 30 Dec, 2011 [facility] [place] [facility] [address] [id number] [place] [address]- 4976 24 Dec, 2011 [facility] [place] [facility] [address] [id number] [place] [address]- 2046 20 Dec, 2011 [facility] [address] [id number] [place] [address] 2546 Dec, [facility] [place] [facility] [address] [id number] [place] [address] 2546 06 Dec, 2011 [facility] [place] [facility] [address] [id number] [place] [address]- 8736 28 Nov, 2011 [facility] [place] [facility] [address] [id number] [place] [address] 2548 Nov, [facility] [place] [facility] [address] [id number] [place] [address]- 5656 Nov, [facility] [place] [facility] [address] [id number] [place] [address]- 2546 14 Nov, 2011 [facility] [place] [facility] [address] [id number] [place] [address] 2542 Nov, [facility] [place] [facility] [address] [id number] [place] [address]- 2313 Nov, [facility] [place] [facility] [address] [id number] [place] [address]- 9767 Oct, [facility] [place] [facility] [address] [id number] [place] [address] Oct, [facility] [place] [facility] [address] [id number] [place] [address] Oct, [facility] [place] [facility] [address] [id number] [place] [address] Oct, [facility] [place] [facility] [address] [id number] [place] [address] Oct, [facility] [place] [facility] [address] [id number] [place] [address] Sep, [facility] [place] [facility] [address] [id number] [place] [address] 21 Sep, 2011 [facility] [place] [facility] [address] [id number] [place] [address] 20 Sep, 2011 [facility] [place] [facility] [address] [id number] [place] [address] 14 Sep, 2011 [facility] [place] [facility] [address] [id number] [place] [address] 14 Sep, 2011 [facility] [place] [facility] [address] [id number] [place] [address] 13 Sep, 2011 [facility] [place] [facility] [address] [id number] [place] [address] 12 Sep, 2011 [facility] [place] [facility] [address] [id number] [place] [address] 09 Sep, 2011 [facility] [place] [facility] [address] [id number] [place] [address] 05 Sep, 2011 [facility] [place] [facility] [address] [id number] [place] [address] 30 Aug, 2011 [facility] [place] [facility] [address] [id number] [place] [address] 30 Aug, 2011 [facility] [place] [facility] [address] [id number] [place] [address] 25 Aug, 2011 [facility] [place] [facility] [address] [id number], [place] [address] Aug, [facility] [place] [facility] [address] [id number], [place] [address] Aug, [facility] [place] [facility] [address] [id number] [place] [address] Aug, [facility] [place] [facility] [address] [id number] [place] [address] 16 Aug, 2011 [facility] [place] [facility] [address] [id number] [place] [address] 16 Aug, 2011 [facility] [place] [facility] [address] [id number] [place] [address] Aug, [facility] [place] [facility] [address] [id number] [place] [address] Aug, [facility] [place] [facility] [address] [id number] [place] [address] Aug, [facility] [place] [facility] [address] [id number] [place] [address] Aug, [facility] [place] [facility] [address] [id number] [place] [address] Jul, [facility] [place] [facility] [address] [id number] [place] [address] Jul, [facility] [place] [facility] [address] [id number] [place] [address] Jul, [facility] [place] [facility] [address] [id number] [place] [address] Jul, [facility] [place] [facility] [address] [id number] [place] [address] Jul, [facility] [place] [facility] [address] [id number] [place] [address] Jul, [facility] [place] [facility] [address] [id number] [place] [address] Jul, [facility] [place] [facility] [address] [id number] [place] [address] Jul, [facility] [place] [facility] [address] [id number] [place] [address] Jul, [facility] [place] [facility] [address] [id number] [place] [address] Jul, [facility] [place] [facility] [address] [id number] [place] [address] Nov, [facility] [place] [facility] [address] [id number] [place] [address] Aug, [facility] [address] [facility] [id number], [place] [address] Aug, [facility] [address] [facility] [id number], [place] [address] Aug, [facility] [address] [facility] [id number][place] [address] Aug, [facility] [address] [facility] [id number], [place] [address] Jul, IMMUNIZATIONS No Known Immunizations SOCIAL HISTORY [...] Suicide attempt by hanging 06/14/2016 Hospitalization History [facility] 01/30/2018-02/10/2008
--- OUTSIDE RECORDS SUMMARY | 2018-08-15 20:36 | XMS REPORT ---
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 019376495 Problem Borderline personality disorder F60.3 Active 55443887 Problem High risk medication use Z79.899 Active 791333189 Problem Schizoaffective disorder, unspecified F25.9 Active 32928328 Problem Paranoid schizophrenia F20.0 Active 09640098 Problem Posttraumatic stress disorder F43.10 Active 25471433 Problem Attention deficit hyperactivity disorder (ADHD), inattentive type, 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 32590532 Problem Posttraumatic stress disorder 309.81 Active 54592283 Problem Obsessive-compulsive disorders 300.3 Active 964114732 Problem Generalized anxiety disorder 300.02 Active 74798437 Problem Attention deficit disorder 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 314.00 Active 10097935 Problem Bipolar disorder, unspecified 296.80 Active 81104014 ALLERGIES No Information ENCOUNTERS Encounter Location Date Diagnosis [facility] [id number] [address] Apr, [facility] [id number] [address] Apr, Paranoid schizophrenia F20.0 ; Posttraumatic stress disorder F43.10 ; Attention deficit hyperactivity disorder (ADHD), inattentive type, 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 and Borderline personality disorder F60.3 [facility] [id number] [address] February, Paranoid schizophrenia F20.0 [facility] [id number] [place] [address] February, Paranoid schizophrenia F20.0 ; Posttraumatic stress disorder F43.10 ; Attention deficit hyperactivity disorder (ADHD), inattentive type, 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 and Borderline personality disorder F60.3 [facility] [id number] [address] February, Paranoid schizophrenia F20.0 ; Posttraumatic stress disorder F43.10 ; Attention deficit hyperactivity disorder (ADHD), inattentive type, 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 and Borderline personality disorder F60.3 [facility] [id number] [address] February, [facility] [id number] [address] February, Paranoid schizophrenia F20.0 [facility] [id number] [address] February, Paranoid schizophrenia F20.0 [facility] [id number] [address] February, Paranoid schizophrenia F20.0 ; Posttraumatic stress disorder F43.10 ; Attention deficit hyperactivity disorder (ADHD), inattentive type, 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 and Borderline personality disorder F60.3 [facility] [id number] [address] Jan, Paranoid schizophrenia F20.0 ; Posttraumatic stress disorder F43.10 ; Attention deficit hyperactivity disorder (ADHD), inattentive type, 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 and Borderline personality disorder F60.3 [facility] [address] [address] Jan, Paranoid schizophrenia F20.0 [facility] [id number] [address] 1001 Jan, Paranoid schizophrenia F20.0 [facility] [address], [place] [address] Jan, Paranoid schizophrenia F20.0 ; Posttraumatic stress disorder F43.10 ; Attention deficit hyperactivity disorder (ADHD), inattentive type, 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 and Borderline personality disorder F60.3 [facility] [address], [place] [address] Dec, [facility] [id number] [address] 7[address] Nov, Paranoid schizophrenia F20.0 ; Posttraumatic stress disorder F43.10 ; Attention deficit hyperactivity disorder (ADHD), inattentive type, 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 and Borderline personality disorder F60.3 [facility] [address], [place] [address] Nov, [facility] [address], [place] [address] 7265 Oct, Paranoid schizophrenia F20.0 [facility] [address], [place] [address] 08[address] Oct, Paranoid schizophrenia F20.0 ; Posttraumatic stress disorder F43.10 ; Attention deficit hyperactivity disorder (ADHD), inattentive type, 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 ; Borderline personality disorder F60.3 and 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 [facility] [address], [place] [address] Oct, [facility] [address], [place] [address] 0[address] Oct, [facility] [address], [place] [address] Sep, [facility] [address], [place] [address] 94[address] Sep, Paranoid schizophrenia F20.0 ; Posttraumatic stress disorder F43.10 ; Attention deficit hyperactivity disorder (ADHD), inattentive type, 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 and Borderline personality disorder F60.3 [facility] [address], [place] [address] Sep, Paranoid schizophrenia F20.0 [facility] [address], [place] [address] Aug, Paranoid schizophrenia F20.0 ; Posttraumatic stress disorder F43.10 ; Attention deficit hyperactivity disorder (ADHD), inattentive type, 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 and Borderline personality disorder F60.3 [facility] [address], [place] [address] 64[address] Aug, Paranoid schizophrenia F20.0 ; Posttraumatic stress disorder F43.10 ; Attention deficit hyperactivity disorder (ADHD), inattentive type, 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 and Borderline personality disorder F60.3 [facility] [address], [place] [address] Aug, [facility] [id number], [place] [address] Jul, Paranoid schizophrenia F20.0 ; Posttraumatic stress disorder F43.10 ; Attention deficit hyperactivity disorder (ADHD), inattentive type, 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 and Borderline personality disorder F60.3 [facility] [id number], [place] [address]- 79[address] Jul, Paranoid schizophrenia F20.0 [facility] [address] [facility] [id number], [place] [address] Jul, Paranoid schizophrenia F20.0 ; Posttraumatic stress disorder F43.10 ; Attention deficit hyperactivity disorder (ADHD), inattentive type, 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 and Borderline personality disorder F60.3 [facility] [id number] [address] Jun, Paranoid schizophrenia F20.0 ; Posttraumatic stress disorder F43.10 ; Attention deficit hyperactivity disorder (ADHD), inattentive type, 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 and Borderline personality disorder F60.3 [facility] [address] [facility] [id number], [place] [address] May, Other nursing home (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 Z79.899 [facility] [id number], [place] [address] May, [facility] [id number], [place] [address] May, [facility] [address] [facility] [id number], [place] [address] May, Attention deficit hyperactivity disorder (ADHD), inattentive type, 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 [facility] [id number] [address] 2578 May, [facility] [id number], [place] [address] 37[address] May, Attention deficit hyperactivity disorder (ADHD), inattentive type, 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 [facility] [address] [facility] [id number], [place] [address] May, Paranoid schizophrenia F20.0 ; Posttraumatic stress disorder F43.10 ; Attention deficit hyperactivity disorder (ADHD), inattentive type, 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 and Other nursing home (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 Z79.899 [facility] [address] [facility] [id number] [place] [address] Apr, Paranoid schizophrenia F20.0 [facility] [id number] [address] Apr, Paranoid schizophrenia F20.0 ; Posttraumatic stress disorder F43.10 and Attention deficit hyperactivity disorder (ADHD), inattentive type, 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 [facility] [address] [address]- [address] February, [facility] [address] [place] [address] February, Paranoid schizophrenia F20.0 ; Posttraumatic stress disorder F43.10 and Attention deficit hyperactivity disorder (ADHD), inattentive type, 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 [facility] [address], [place] [address] 70[address] February, Paranoid schizophrenia F20.0 ; Posttraumatic stress disorder F43.10 and Attention deficit hyperactivity disorder (ADHD), inattentive type, 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 [facility] [address], [place] [address]- 1686 Jan, Paranoid schizophrenia F20.0 ; Posttraumatic stress disorder F43.10 and Attention deficit hyperactivity disorder (ADHD), inattentive type, 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 [facility] [address] [place] [id number] Dec, Dental examination Z01.20 [facility] [address] [id number] [id number] Nov, Dental examination Z01.20 [facility] [id number] [place] [id number] Nov, Dental examination Z01.20 [facility] [address] [id number] [id number] Nov, Dental caries K02.9 [facility] [address], [place] [address]- [address]65 13 Nov, 2016 High risk medication use Z79.899 [facility] [id number] [place] [address]- 6614 Nov, Paranoid schizophrenia F20.0 ; Posttraumatic stress disorder F43.10 ; Attention deficit hyperactivity disorder (ADHD), inattentive type, 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 and Borderline personality disorder in adult F60.3 [facility] [address] [id number] Oct, Dental caries K02.9 [facility] [address] [place] [address]- 4061 Sep, Paranoid schizophrenia F20.0 ; Posttraumatic stress disorder F43.10 and Attention deficit hyperactivity disorder (ADHD), inattentive type, 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 [facility] [address] [place] [address]- [address]64 16 Aug, 2016 Paranoid schizophrenia F20.0 ; Posttraumatic stress disorder F43.10 and Attention deficit hyperactivity disorder (ADHD), inattentive type, 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 [facility] [address], [place] [address] Aug, Strep throat J02.0 and Cough R05 [facility] [address] [place] [address]- 7510 Aug, [facility] [id number] [place] [address]- 5126 24 Jul, 2016 Paranoid schizophrenia F20.0 ; Posttraumatic stress disorder F43.10 and Attention deficit hyperactivity disorder (ADHD), inattentive type, 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 [facility] [address] [address]- [address] Jul, [facility] [address] [place] [address]- 3126 28 Jun, 2016 Paranoid schizophrenia F20.0 ; Posttraumatic stress disorder F43.10 and Attention deficit hyperactivity disorder (ADHD), inattentive type, 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 [facility] [id number] [id number] Jun, Dental examination Z01.20 [facility] [address] [facility] [id number], [place] [address]- [address] Jun, [facility] [address] [facility] [id number], [place] [address]- 5436 May, Paranoid schizophrenia F20.0 [facility] [address] [facility] [id number] [place] [address]- 8[address] May, Paranoid schizophrenia F20.0 ; Posttraumatic stress disorder F43.10 and Attention deficit hyperactivity disorder (ADHD), inattentive type, 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 [facility] [address] [facility] [id number] [place] [address]- 8786 May, [facility] [address] [facility] [id number], [place] [address]- 7156 May, Paranoid schizophrenia F20.0 [facility] [address] [facility] [id number] [address]- 3963 May, [facility] [address] [facility] [id number], [place] [address]- 2878 May, Paranoid schizophrenia F20.0 [facility] [address] [facility] [id number] [place] [address] 2546 May, Schizoaffective disorder, unspecified F25.9 [facility] [address] [facility] [id number], [place] [address] May, Schizoaffective disorder, unspecified F25.9 [facility] [address] [facility] [id number] [address]- 0105 May, [facility] [address] [facility] [id number], [place] [address] 38[address] May, Paranoid schizophrenia F20.0 [facility] [address] [facility] [id number] [place] [address] May, Paranoid schizophrenia F20.0 ; Posttraumatic stress disorder F43.10 and Attention deficit hyperactivity disorder (ADHD), inattentive type, 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 [facility] [address] [facility] [id number], [place] [address]- [address] Mar, [facility] [id number] [place] [address]- 6137 Mar, Paranoid schizophrenia F20.0 ; Posttraumatic stress disorder F43.10 and Attention deficit hyperactivity disorder (ADHD), inattentive type, 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 [facility] [address] [place] [address]194- 6687 Mar, Paranoid schizophrenia F20.0 [facility] [id number], [place] [address]- 4290 Mar, Paranoid schizophrenia F20.0 ; Attention deficit hyperactivity disorder (ADHD), inattentive type, 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 and Posttraumatic stress disorder F43.10 [facility] [address], [place] [address]- 7580 Mar, [facility] [address] [place] [address]67[address]- 9124 Mar, Paranoid schizophrenia F20.0 ; Posttraumatic stress disorder F43.10 and Attention deficit hyperactivity disorder (ADHD), inattentive type, 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 [facility] [address], [place] [address]- 68[address] February, [facility] [address], [place] [address]- 0579 February, [facility] [address], [place] [address]- 4909 February, [facility] [id number] [address]- 4910 February, [facility] [address], [place] [address]- 3733 Jan, Paranoid schizophrenia F20.0 [facility] [address] [id number] [address] Jan, Dental examination Z01.20 [facility] [address] [id number] [id number] Jan, Dental caries K02.9 [facility] [id number] [id number] Jan, Dental examination Z01.20 [facility] [id number] [address] Dec, Encounter for dental examination Z01.20 [facility] [id number] [place] [address] 8[address]20- 0082 Dec, Paranoid schizophrenia F20.0 [facility] [address] [id number] [id number] Dec, Dental examination Z01.20 [facility] [address], [place] [address]- 7419 Dec, [facility] [address] [place] [address]37- 1726 Dec, Paranoid schizophrenia F20.0 ; Posttraumatic stress disorder F43.10 and Attention deficit hyperactivity disorder (ADHD), inattentive type, 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 [facility] [address], [place] [address]- 7324 Nov, Schizoaffective disorder, unspecified F25.9 [facility] [address], [place] [address]- 2287 Oct, Paranoid schizophrenia F20.0 [facility] [address], [place] [address]- 3175 Oct, [facility] [id number] [place] [address]- 6552 Sep, Paranoid schizophrenia F20.0 ; Posttraumatic stress disorder F43.10 and Attention deficit hyperactivity disorder (ADHD), inattentive type, 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 [facility] [address], [place] [address]- 6160 Sep, [facility] [address], [place] [address]- 2191 Sep, Paranoid schizophrenia F20.0 ; Posttraumatic stress disorder F43.10 and Attention deficit hyperactivity disorder (ADHD), inattentive type, 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 [facility] [address], [place] [address]- 9515 Aug, Paranoid schizophrenia F20.0 [facility] [address] [id number], [place] [address]- 3346 Aug, [facility] [address], [place] [address]- 5967 Aug, Posttraumatic stress disorder F43.10 ; Paranoid schizophrenia F20.0 and Attention deficit hyperactivity disorder (ADHD), inattentive type, 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 [facility] [address], [place] [address]- 2190 Jul, Bipolar disorder, unspecified F31.9 [facility] [address], [place] [address]- 1905 Jul, [facility] [address] [place] [address] 67646- 6923 Jun, [facility] [address], [place] [address]- 8193 Jun, Schizoaffective disorder, chronic 295.72 ; Posttraumatic stress disorder 309.81 and Attention deficit disorder 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 314.00 [facility] [address], [place] [address]- 1140 May, [facility] [address], [place] [address]- 8242 May, [facility] [address], [place] [address]- 9971 May, Schizoaffective disorder, chronic 295.72 ; Posttraumatic stress disorder 309.81 ; Attention deficit disorder 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 314.00 and Bipolar disorder, unspecified 296.80 [address], [place] [address]- 0095 Apr, Schizoaffective disorder, chronic 295.72 [facility] [address], [place] [address]- 2614 Apr, [facility] [address], [place] [address]- 2869 Apr, Schizoaffective disorder, chronic 295.72 ; Posttraumatic stress disorder 309.81 and Attention deficit disorder 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 314.00 [facility] [address], [place] [address]- 7012 Mar, Disorganized schizophrenia, 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 [facility] [address], [place] [address]- 9037 Mar, [facility] [address] [id number], [place] [address]- 6998 Mar, [facility] [address], [place] [address]- 0499 Mar, [facility] [address], [place] [address]- 0979 Mar, [facility] [address], [place] [address]- 2177 February, Schizoaffective disorder, chronic 295.72 [facility] [address], [place] [address]- 6683 February, [facility] [address], [place] [address]- 6934 February, Attention deficit disorder 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 314.00 ; Posttraumatic stress disorder 309.81 and Schizoaffective disorder, chronic 295.72 [facility] [address] [address] 8840 Jan, [facility] [address], [place] [address]- 7925 Jan, [facility] [place] [facility] [address] [id number] [place] [address]- 5832 Jan, [facility] [place] [facility] [address] [id number] [place] [address]- 4367 Dec, [facility] [place] [facility] [address] [id number] [place] [address]- 1264 Dec, [facility] [place] [facility] [address] [id number] [place] [address]- 2031 Dec, [facility] [place] [facility] [address] [id number] [place] [address]- 6218 Dec, [facility] [place] [facility] [address] [id number] [place] [address]- 8346 Dec, [facility] [place] [facility] [address] [id number] [place] [address]- 3236 Dec, [facility] [place] [facility] [address] [id number] [place] [address]- 3250 Dec, [facility] [place] [facility] [address] [id number] [place] [address]- 4223 Dec, [facility] [place] [facility] [address] [id number] [place] [address]- 2612 Nov, [facility] [place] [facility] [address] [id number] [place] [address]- 3430 Nov, [facility] [place] [facility] [address] [id number] [place] [address]- 1568 Nov, [facility] [place] [facility] [address] [id number] [place] [address]- 3217 Nov, [facility] [place] [facility] [address] [id number] [place] [address]- 7215 Nov, [facility] [place] [facility] [address] [id number] [place] [address]- 4804 Nov, [facility] [place] [facility] [address] [id number] [place] [address]- 2350 05 Nov, 2014 [facility] [address] [id number] [place] [address]- 8756 Nov, [facility] [place] [facility] [address] [id number] [place] [address]- 5756 Nov, 2014 [facility] [address] [id number] [place] [address]- 9674 Nov, [facility] [place] [facility] [address] [id number] [place] [address]- 8341 Oct, [facility] [address] [id number] [place] [address]- 3419 Oct, [facility] [place] [facility] [address] [id number] [place] [address]- 3604 Oct, [facility] [place] [facility] [address] [id number] [place] [address]- 2530 Oct, [facility] [address] [id number] [place] [address]- 4512 Oct, [facility] [place] [facility] [address] [id number] [place] [address]- 8250 Oct, [facility] [address] [facility] [id number] [place] [address]- 7158 Oct, [facility] [place] [facility] [address] [id number] [place] [address] Sep, [facility] [place] [facility] [address] [id number] [place] [address] Sep, [facility] [place] [facility] [address] [id number] [place] [address] Sep, [facility] [place] [facility] [address] [id number] [place] [address] Sep, [facility] [place] [facility] [address] [id number] [place] [id number] Aug, [facility] [place] [facility] [address] [id number] [place] [address] Aug, [facility] [place] [facility] [address] [id number] [place] [address] Aug, [facility] [place] [facility] [address] [id number] [place] [address] Aug, [facility] [place] [facility] [address] [id number] [place] [address] Aug, [facility] [place] [facility] [address] [id number] [place] [address] Aug, [facility] [place] [facility] [address] [id number] [place] [address] Jul, [facility] [place] [facility] [address] [id number] [place] [address] Jul, [facility] [place] [facility] [address] [id number] [place] [address] Jul, [facility] [place] [facility] [address] [id number] [place] [address] 4453 24 Jul, 2014 [facility] [place] [facility] [address] [id number], [place] [address] Jul, [facility] [place] [facility] [address] [id number], [place] [address] Jul, [facility] [place] [facility] [address] [id number], [place] [address] 27 Jun, 2014 [facility] [place] [facility] [address] [id number] [place] [address] 6[address] 27 Jun, 2014 [facility] [place] [facility] [address] [id number] [place] [address] 4608 26 Jun, 2014 [facility] [place] [facility] [address] [id number], [place] [address] 18[address] 26 Jun, 2014 [facility] [place] [facility] [address] [id number], [place] [address] Jun, 2013 [facility] [place] [facility] [address] [id number] [place] [address]- 2853 26 Jun, 2013 [facility] [place] [facility] [address] [id number] [place] [address]- 7126 16 Jun, 2013 [facility] [place] [facility] [address] [id number] [place] [address]- 0686 16 Jun, 2013 [facility] [place] [facility] [address] [id number] [place] [address]- 2439 Jun, 2013 [facility] [place] [facility] [address] [id number] [place] [address]- 2036 Jun, 2013 [facility] [place] [facility] [address] [id number] [place] [address] 1860 Jun, [facility] [place] [facility] [address] [id number] [place] [address] 7926 May, [facility] [place] [facility] [address] [id number] [place] [address]- 0470 May, [facility] [place] [facility] [address] [id number] [place] [address]- 4258 May, [facility] [place] [facility] [address] [id number] [place] [address]- 8088 May, [facility] [place] [facility] [address] [id number] [place] [address]- 3009 May, [facility] [place] [facility] [address] [id number] [place] [address]- 2545 May, [facility] [place] [facility] [address] [id number] [place] [address]- 4448 May, [facility] [place] [facility] [address] [id number] [place] [address]- 0611 May, [facility] [place] [facility] [address] [id number] [place] [address]- 8565 May, [facility] [place] [facility] [address] [id number] [place] [address]- 5636 May, [facility] [place] [facility] [address] [id number] [place] [address]- 7787 Apr, [facility] [place] [facility] [address] [id number] [place] [address]- 1476 Apr, [facility] [place] [facility] [address] [id number] [place] [address]- 6207 Apr, [facility] [place] [facility] [address] [id number] [place] [address]- 6010 Apr, [facility] [place] [facility] [address] [id number] [place] [address]- 6194 Apr, [facility] [place] [facility] [address] [id number] [place] [address]- 7378 Apr, [facility] [place] [facility] [address] [id number] [place] [address]- 0520 Apr, [facility] [place] [facility] [address] [id number] [place] [address]- 9165 Apr, [facility] [place] [facility] [address] [id number] [place] [address]- 3220 Apr, [facility] [place] [facility] [address] [id number] [place] [address]- 0662 Apr, [facility] [place] [facility] [address] [id number] [place] [address]- 5238 Mar, [facility] [place] [facility] [address] [id number] [place] [address]- 9741 Mar, [facility] [place] [facility] [address] [id number] [place] [address]- 2262 Mar, [facility] [place] [facility] [address] [id number] [place] [address]- 4311 Mar, [facility] [place] [facility] [address] [id number] [place] [address] 3213 20 Mar, 2014 [facility] [place] [facility] [address] [id number] [place] [address]- 8149 18 Mar, 2014 [facility] [place] [facility] [address] [id number] [place] [address]- 9016 18 Mar, 2014 [facility] [place] [facility] [address] [id number] [place] [address]- 9145 16 Mar, 2014 [facility] [place] [facility] [address] [id number] [place] [address]- 0284 16 Mar, 2014 [facility] [place] [facility] [address] [id number] [place] [address]- 3296 Mar, [facility] [place] [facility] [address] [id number] [place] [address]- 0192 Mar, [facility] [place] [facility] [address] [id number] [place] [address]- 4326 Mar, [facility] [place] [facility] [address] [id number] [place] [address]- 1767 Mar, [facility] [place] [facility] [address] [id number] [place] [address]- 1352 Mar, [facility] [place] [facility] [address] [id number] [place] [address]- 1092 Mar, [facility] [place] [facility] [address] [id number], [place] [address] 4773 Mar, [facility] [place] [facility] [address] [id number], [place] [address]- 0820 Mar, [facility] [place] [facility] [address] [id number] [place] [address]- 3113 Mar, [facility] [place] [facility] [address] [id number], [place] [address]- 0619 04 Mar, 2014 [facility] [place] [facility] [address] [id number], [place] [address]- 3517 Mar, [facility] [place] [facility] [address] [id number] [place] [address]- 5903 February, [facility] [address] [id number] [place] [address]- 5482 February, [facility] [place] [facility] [address] [id number] [place] [address]- 5852 February, [facility] [address] [id number] [place] [address]- 8945 February, [facility] [place] [facility] [address] [id number] [place] [address]- 3241 February, [facility] [place] [facility] [address] [id number] [place] [address]- 1603 February, [facility] [address] [id number] [place] [address]- 3554 February, [facility] [address] [id number] [place] [address]- 6100 February, [facility] [address] [id number] [place] [address]- 2725 February, [facility] [place] [facility] [address] [id number] [place] [address]- 5814 February, [facility] [address] [id number] [place] [address]- 4347 February, [facility] [place] [facility] [address] [id number] [place] [address]- 4045 February, [facility] [place] [facility] [address] [id number] [place] [address]- 1244 February, [facility] [place] [facility] [address] [id number] [place] [address]- 9778 February, [facility] [place] [facility] [address] [id number] [place] [address]- 3325 February, [facility] [place] [facility] [address] [id number] [place] February, [facility] [place] [facility] [address] [id number] [place] [address]- 3485 February, [facility] [place] [facility] [address] [id number] [place] [address]- 8554 February, [facility] [place] [facility] [address] [id number] [place] [address]- 9457 February, [facility] [place] [facility] [address] [id number] [place] [address]- 2092 February, [facility] [place] [facility] [address] [id number] [place] [address]- 8468 February, [facility] [place] [facility] [address] [id number] [place] [address]- 8936 Jan, [facility] [place] [facility] [address] [id number] [place] [address]- 6841 Jan, [facility] [place] [facility] [address] [id number] [place] [address]- 4919 Jan, [facility] [place] [facility] [address] [id number] [place] [address]- 0856 Jan, [facility] [place] [facility] [address] [id number] [place] [address]- 6734 Jan, [facility] [place] [facility] [address] [id number] [place] [address]- 2779 Jan, [facility] [place] [facility] [address] [id number] [place] [address]- 2204 Jan, [facility] [place] [facility] [address] [id number] [place] [address]- 5329 Jan, [facility] [place] [facility] [address] [id number] [place] [address]- 6416 Dec, [facility] [place] [facility] [address] [id number] [place] [address]- 7627 Dec, [facility] [place] [facility] [address] [id number] [place] [address]- 2546 20 Dec, 2013 [facility] [place] [facility] [address] [id number] [place] [address]- 0963 19 Dec, 2013 [facility] [place] [facility] [address] [id number] [place] [address]- 5676 19 Dec, 2013 [facility] [place] [facility] [address] [id number] [place] [address]- 3076 15 Dec, 2013 [facility] [place] [facility] [address] [id number] [place] [address]- 9000 15 Dec, 2013 [facility] [place] [facility] [address] [id number] [place] [address]- 0011 11 Dec, 2013 [facility] [place] [facility] [address] [id number] [place] [address]- 6057 10 Dec, 2013 [facility] [place] [facility] [address] [id number] [place] [address]- 9957 10 Dec, 2013 [facility] [place] [facility] [address] [id number] [place] [address]- 8593 18 Nov, 2013 [facility] [place] [facility] [address] [id number] [place] [address]- 9486 17 Nov, 2013 [facility] [place] [facility] [address] [id number] [place] [address]- 2639 Nov, [facility] [place] [facility] [address] [id number] [place] [address]- 5923 Nov, [facility] [place] [facility] [address] [id number] [place] [address]- 6517 Nov, [facility] [place] [facility] [address] [id number] [place] [address]- 6641 Oct, [facility] [place] [facility] [address] [id number] [place] [address]- 4735 Oct, [facility] [place] [facility] [address] [id number] [place] [address]- 8918 16 Oct, 2013 [facility] [place] [facility] [address] [id number] [place] [address]- 0266 Sep, [facility] [place] [facility] [address] [id number] [place] [address]- 8357 Sep, [facility] [place] [facility] [address] [id number] [place] [address]- 3616 Sep, [facility] [place] [facility] [address] [id number] [place] [address]- 7348 Sep, [facility] [place] [facility] [address] [id number] [place] [address]- 5888 Aug, [facility] [place] [facility] [address] [id number] [place] [address]- 4911 Aug, [facility] [place] [facility] [address] [id number] [place] [address]- 6534 Jul, [facility] [place] [facility] [address] [id number] [place] [address]- 7963 Jul, [facility] [place] [facility] [address] [id number] [place] [address]- 0255 Jul, [facility] [place] [facility] [address] [id number] [place] [address]- 2524 Jul, [facility] [place] [facility] [address] [id number] [place] [address]- 8461 Jul, [facility] [place] [facility] [address] [id number] [place] [address]- 3898 25 Jun, 2013 [facility] [place] [facility] [address] [id number] [place] [address] 2548 25 Jun, 2013 [facility] [place] [facility] [address] [id number] [place] [address] 2546 19 Jun, 2013 [facility] [place] [facility] [address] [id number] [place] [address] 2549 18 Sep, 2012 [facility] [place] [facility] [address] [id number] [place] [address]- 2700 16 Jun, 2013 [facility] [address] [id number] [place] [address]- 7980 12 Jun, 2013 [facility] [place] [facility] [address] [id number] [place] [address]- 7366 11 Jun, 2013 [facility] [address] [id number] [place] [address] 2549 May, [facility] [place] [facility] [address] [id number] [place] [address]- 5849 May, [facility] [address] [id number] [place] [address]- 5002 Apr, [facility] [place] [facility] [address] [id number] [place] [address]- 5764 Apr, [facility] [place] [facility] [address] [id number] [place] [address]- 9420 Apr, [facility] [place] [facility] [address] [id number] [place] [address]- 7990 Mar, [facility] [place] [facility] [address] [id number] [place] [address]- 1081 Mar, [facility] [place] [facility] [address] [id number] [place] [address]- 0506 February, [facility] [place] [facility] [address] [id number] [place] [address]- 3969 February, [facility] [place] [facility] [address] [id number], [place] [address] 2543 February, [facility] [place] [facility] [address] [id number] [place] [address]- 2546 February, [facility] [place] [facility] [address] [id number] [place] [address]- 2898 Jan, [facility] [place] [facility] [address] [id number] [place] [address]- 2546 Jan, [facility] [place] [facility] [address] [id number] [place] [address]- 6940 16 Jan, 2013 [facility] [address] [id number] [place] [address]- 4037 29 Dec, 2012 [facility] [place] [facility] [address] [id number] [place] [address]- 7323 Dec, [facility] [address] [id number] [place] [address]- 9499 Dec, [facility] [address] [id number] [place] [address]- 1014 Dec, [facility] [address] [id number] [place] [address]- 2570 Nov, [facility] [address] [id number] [place] [address]- 9579 Nov, [facility] [address] [id number] [place] [address]- 1035 Oct, [facility] [address] [id number] [place] [address]- 3097 Oct, [facility] [address] [id number] [place] [address]- 4653 Oct, [facility] [address] [id number] [place] [address]- 0947 Oct, [facility] [address] [id number] [place] [address]- 4407 Aug, [facility] [address] [id number] [place] [address]- 0517 Aug, [facility] [place] [facility] [address] [id number] [place] [address]- 9583 Jun, [facility] [place] [facility] [address] [id number] [place] [address]- 6501 May, [facility] [address] [id number] [place] [address]- 8590 May, [facility] [place] [facility] [address] [id number] [place] [address]- 1869 Apr, [facility] [place] [facility] [address] [id number] [place] [address]- 3266 Apr, [facility] [place] [facility] [address] [id number] [place] [address]- 0336 Apr, [facility] [place] [facility] [address] [id number] [place] [address]- 0915 Mar, [facility] [place] [facility] [address] [id number] [place] [address]- 9559 Mar, [facility] [place] [facility] [address] [id number] [place] [address]- 3026 Mar, [facility] [place] [facility] [address] [id number] [place] [address]- 1011 Mar, [facility] [place] [facility] [address] [id number] [place] [address]- 8428 Mar, [facility] [place] [facility] [address] [id number] [place] [address]- 6853 February, [facility] [place] [facility] [address] [id number] [place] [address]- 8646 February, [facility] [place] [facility] [address] [id number] [place] [address]- 8076 February, [facility] [place] [facility] [address] [id number] [place] [address]- 5756 February, [facility] [place] [facility] [address] [id number] [place] [address]- 7396 February, [facility] [place] [facility] [address] [id number] [place] [address]- 8066 February, [facility] [place] [facility] [address] [id number] [place] [address]- 8506 February, [facility] [place] [facility] [address] [id number] [place] [address]- 0215 25 Jan, 2012 [facility] [address] [id number] [place] [address]- 5310 18 Jan, 2012 [facility] [place] [facility] [address] [id number] [place] [address]- 5016 17 Jan, 2012 [facility] [place] [facility] [address] [id number] [place] [address]- 2336 13 Jan, 2012 [facility] [place] [facility] [address] [id number] [place] [address]- 8483 10 Jan, 2012 [facility] [place] [facility] [address] [id number] [place] [address]- 0242 04 Jan, 2012 [facility] [address] [facility] [id number] [place] [address]- 9219 30 Dec, 2011 [facility] [address] [id number] [place] [address]- 2285 24 Dec, 2011 [facility] [place] [facility] [address] [facility] [id number] [place] [address]- 5179 20 Dec, 2011 [facility] [place] [facility] [address] [facility] [id number] [place] [address]- 1082 13 Dec, 2011 [facility] [place] [facility] [address] [facility] [id number] [place] [address]- 8401 06 Dec, 2011 [facility] [place] [facility] [address] [id number] [place] [address]- 6095 28 Nov, 2011 [facility] [place] [facility] [address] [facility] [id number] [place] [address]- 8512 27 Nov, 2011 [facility] [place] [facility] [address] [id number] [place] [address]- 5662 25 Nov, 2011 [facility] [place] [facility] [address] [id number] [place] [address]- 7623 14 Nov, 2011 [facility] [place] [facility] [address] [facility] [id number] [place] [address]- 6402 10 Nov, 2011 [facility] [place] [facility] [address] [id number] [place] [address]- 7727 Nov, [facility] [address] [id number] [place] [address]- 6786 Oct, [facility] [address] [id number] [place] [address]- 2946 Oct, [facility] [address] [id number] [place] [address]- 8085 Oct, [facility] [address] [id number] [place] [address]- 8343 Oct, [facility] [address] [id number] [place] [address]- 8438 Oct, [facility] [address] [id number] [place] [address]- 0892 Sep, [facility] [address] [id number] [place] [address]- 7300 Sep, [facility] [address] [id number] [place] [address]- 5374 Sep, [facility] [address] [id number] [place] [address]- 6566 14 Sep, 2011 [facility] [address] [id number] [place] [address]- 4971 14 Sep, 2011 [facility] [address] [id number] [place] [address] 13 Sep, 2011 [facility] [address] [id number] [place] [address] 12 Sep, 2011 [facility] [place] [facility] [address] [id number] [place] [address] 09 Sep, 2011 [facility] [address] [id number] [place] [address] 05 Sep, 2011 [facility] [address] [id number] [address] Aug, [facility] [place] [facility] [address] [id number] [place] [address] Aug, [facility] [place] [facility] [address] [id number] [place] [address] Aug, [facility] [place] [facility] [address] [id number] [place] [address] Aug, [facility] [place] [facility] [address] [id number] [place] [address] Aug, [facility] [place] [facility] [address] [id number] [place] [address] Aug, [facility] [place] [facility] [address] [id number] [place] [address] Aug, [facility] [place] [facility] [address] [id number] [place] [address] Aug, [facility] [place] [facility] [address] [id number] [place] [address] Aug, [facility] [place] [facility] [address] [id number] [place] [address] Aug, [facility] [place] [facility] [address] [id number] [place] [address] Aug, [facility] [place] [facility] [address] [id number], [place] [address] Aug, [facility] [place] [facility] [address] [id number], [place] [address] Jul, [facility] [place] [facility] [address] [id number] [place] [address] Jul, [facility] [place] [facility] [address] [id number] [place] [address] Jul, [facility] [place] [facility] [address] [id number] [place] [address] Jul, [facility] [place] [facility] [id number], [place] [address] Jul, [facility] [id number], [place] [address] Jul, [facility] [address] [facility] [id number], [place] [address] Jul, [facility] [id number], [place] [address] Jul, [facility] [id number], [place] [address] Jul, [facility] [id number], [place] [address] Jul, [facility] [id number], [place] [address] Nov, [facility] [id number], [place] [address] Aug, [facility] [id number], [place] [address] Aug, [facility] [id number], [place] [address] Aug, [facility] [id number], [place] [address] Aug, [facility] [id number], [place] [address] Jul, IMMUNIZATIONS No Known Immunizations SOCIAL HISTORY Never Assessed REASON FOR VISIT Requests return call PLAN OF CARE VITAL SIGNS MEDICATIONS Unknown [...] attempt by hanging 06/14/2016 Hospitalization History [facility] 01/30/2018-02/10/2008
--- OUTSIDE RECORDS SUMMARY | 2018-08-15 20:37 | XMS REPORT ---
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 763642746 Problem Borderline personality disorder F60.3 Active 48019432 Problem High risk medication use Z79.899 Active 776407951 Problem Schizoaffective disorder, unspecified F25.9 Active 01611390 Problem Paranoid schizophrenia F20.0 Active 06910038 Problem Posttraumatic stress disorder F43.10 Active 49753133 Problem Attention deficit hyperactivity disorder (ADHD), inattentive type, 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 [id number] [address] Apr, [facility] [address] 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 and Borderline personality disorder F60.3 [facility] [address] [id number] [address] February, Paranoid schizophrenia F20.0 ; Posttraumatic stress disorder F43.10 ; Attention deficit hyperactivity disorder (ADHD), inattentive type, 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 and Borderline personality disorder F60.3 [facility] [id number] [place] [address]- [address] February, [facility] [address] [id number] [address] 8[address] February, Paranoid schizophrenia F20.0 [facility] [address] [id number] [address] February, Paranoid schizophrenia F20.0 [facility] [address] [id number] [address] February, Paranoid schizophrenia F20.0 ; Posttraumatic stress disorder F43.10 ; Attention deficit hyperactivity disorder (ADHD), inattentive type, 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 and Borderline personality disorder F60.3 [facility] [address] [id number] [address] Jan, Paranoid schizophrenia F20.0 ; Posttraumatic stress disorder F43.10 ; Attention deficit hyperactivity disorder (ADHD), inattentive type, 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 and Borderline personality disorder F60.3 [facility] [address] [id number] [address] Jan, Paranoid schizophrenia F20.0 [facility] [address] [id number] [address] Jan, Paranoid schizophrenia F20.0 [facility] [address] [id number] [address] Jan, Paranoid schizophrenia F20.0 ; Posttraumatic stress disorder F43.10 ; Attention deficit hyperactivity disorder (ADHD), inattentive type, 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 and Borderline personality disorder F60.3 [facility] [address]00565100[place] [address] Dec, [facility] [address]00565100[place] [address] Nov, Paranoid schizophrenia F20.0 ; Posttraumatic stress disorder F43.10 ; Attention deficit hyperactivity disorder (ADHD), inattentive type, 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 and Borderline personality disorder F60.3 [facility] [address]00565100[place] [address] Nov, [facility] [address]00565100[place] [address] 3509 Oct, Paranoid schizophrenia F20.0 [facility] [address]00565100[place] [address] Oct, Paranoid schizophrenia F20.0 ; Posttraumatic stress disorder F43.10 ; Attention deficit hyperactivity disorder (ADHD), inattentive type, 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 ; Borderline personality disorder F60.3 and Other halfway ( 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 Z79.899 [facility] [address]00565100[place] [address] Oct, [facility] [address]00565100[place] [address] 9[address] Oct, [facility] [address]00565100[place] [address]6 Sep, [facility] [address]00565100[place] [address] 3528 Sep, Paranoid schizophrenia F20.0 ; Posttraumatic stress disorder F43.10 ; Attention deficit hyperactivity disorder (ADHD), inattentive type, 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 and Borderline personality disorder F60.3 [facility] [address]00565100[place] [address] Sep, Paranoid schizophrenia F20.0 [facility] [address]00565100[place] [address] 6[address] Aug, Paranoid schizophrenia F20.0 ; Posttraumatic stress disorder F43.10 ; Attention deficit hyperactivity disorder (ADHD), inattentive type, 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 and Borderline personality disorder F60.3 [facility] [address]00565100[place] [address] Aug, Paranoid schizophrenia F20.0 ; Posttraumatic stress disorder F43.10 ; Attention deficit hyperactivity disorder (ADHD), inattentive type, 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 and Borderline personality disorder F60.3 [facility] [address]00565100[place] [address] Aug, [facility] [address]00565100[place] [address]- 4[address] Jul, Paranoid schizophrenia F20.0 ; Posttraumatic stress disorder F43.10 ; Attention deficit hyperactivity disorder (ADHD), inattentive type, 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 and Borderline personality disorder F60.3 [facility] [address]00565100[place] [address]- [address] Jul, Paranoid schizophrenia F20.0 [facility] [address]00565100[place] [address]- 7[address] Jul, Paranoid schizophrenia F20.0 ; Posttraumatic stress disorder F43.10 ; Attention deficit hyperactivity disorder (ADHD), inattentive type, 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 and Borderline personality disorder F60.3 [facility] [address] [id number] [address]- [address] Jun, Paranoid schizophrenia F20.0 ; Posttraumatic stress disorder F43.10 ; Attention deficit hyperactivity disorder (ADHD), inattentive type, 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 [id number] [place] [address] May, [facility] [address] [facility] [id number] [place] [address]96 May, [facility] [place] [facility] [address] 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 [id number] [place] [address]- 2[address] May, [facility] [place] [facility] [address] 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 [id number] [place] [address]- [address] Apr, Paranoid schizophrenia F20.0 [facility] [place] [facility] [address] 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 [id number] [place] [address]- 8767 February, [facility] [place] [facility] [address] 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 [facility] [id number] [place] [address]58- 3620 Jan, Paranoid schizophrenia F20.0 ; Posttraumatic stress disorder F43.10 and Attention deficit hyperactivity disorder (ADHD), inattentive type, 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 [facility] [id number] [place] [address] [id number] Dec, Dental examination Z01.20 [facility] [address] [id number] Nov, Dental examination Z01.20 [facility] [id number] [place] [address] [id number] Nov, Dental examination Z01.20 [facility] [id number] [place] [address] [id number] Nov, Dental caries K02.9 [facility] [id number] [place] [address] 26537- 4810 Nov, High risk medication use Z79.899 [facility] [id number] [place] [address] 59589- 5426 Nov, Paranoid schizophrenia F20.0 ; Posttraumatic stress disorder F43.10 ; Attention deficit hyperactivity disorder (ADHD), inattentive type, 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 and Borderline personality disorder in adult F60.3 [facility] [id number] [place] [address] [id number] Oct, Dental caries K02.9 [facility] [id number] [place] [address] 31016- 7374 Sep, Paranoid schizophrenia F20.0 ; Posttraumatic stress disorder F43.10 and Attention deficit hyperactivity disorder (ADHD), inattentive type, 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 [facility] [id number] [place] [address] 12245- 1918 Aug, Paranoid schizophrenia F20.0 ; Posttraumatic stress disorder F43.10 and Attention deficit hyperactivity disorder (ADHD), inattentive type, 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 [facility] [address]00565100[place] [address] Aug, Strep throat J02.0 and Cough R05 [facility] [id number] [place] [address] 80225- 6141 Aug, [facility] [id number] [place] [address] 60159- 9457 Jul, Paranoid schizophrenia F20.0 ; Posttraumatic stress disorder F43.10 and Attention deficit hyperactivity disorder (ADHD), inattentive type, 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 [facility] [address]00565100[place] [address]- 7432 Jul, [facility] [id number] [place] [address] 99332- 0181 Jun, Paranoid schizophrenia F20.0 ; Posttraumatic stress disorder F43.10 and Attention deficit hyperactivity disorder (ADHD), inattentive type, 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 [facility] [id number] [place] [address] [id number] Jun, Dental examination Z01.20 [facility] [address] [address]- 7075 Jun, [facility] [id number] [place] [address] 55573- 5511 May, Paranoid schizophrenia F20.0 [facility] [address]005[address] [address]- 9873 May, Paranoid schizophrenia F20.0 ; Posttraumatic stress disorder F43.10 and Attention deficit hyperactivity disorder (ADHD), inattentive type, 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 [id number] [place] [address]- 3018 May, [facility] [address] [facility] [id number] [place] [address]- 8096 May, Paranoid schizophrenia F20.0 [facility] [address] [facility] [id number] [place] [address]- 0672 May, Schizoaffective disorder, unspecified F25.9 [facility] [address] [facility] [id number] [place] [address]- 7106 May, Schizoaffective disorder, unspecified F25.9 [facility] [address] [facility] [id number] [address]- 7418 May, [facility] [address] [facility] [id number] [address]- 2710 May, Paranoid schizophrenia F20.0 [facility] [address] 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 [id number] [address]- 4522 Mar, [facility] [address] 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 [id number] [address]- 1306 Mar, Paranoid schizophrenia F20.0 [facility] [address] 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 [facility] [address] [id number] [place] [address]- 4967 February, [facility] [address] [id number] [place] [address]- 8351 February, [facility] [address] [id number] [place] [address]- 4408 February, [facility] [address] [id number] [address]- 5316 February, [facility] [address] [id number] [address]- 2796 Jan, Paranoid schizophrenia F20.0 [facility] [id number] [place] [address] [id number] Jan, Dental examination Z01.20 [facility] [address] [id number] [place] [id number] Jan, Dental caries K02.9 [facility] [id number] [place] [address] [id number] Jan, Dental examination Z01.20 [facility] [address] [id number] [place] [address] [id number] Dec, Encounter for dental examination Z01.20 [facility] [address] [id number] [address] 2546 Dec, Paranoid schizophrenia F20.0 [facility] [address] [id number] [place] [id number] Dec, Dental examination Z01.20 [facility] [address]005[address]100[place] [address]- 6603 Dec, [facility] [id number] [place] [address] 45397- 5506 Dec, Paranoid schizophrenia F20.0 ; Posttraumatic stress disorder F43.10 and Attention deficit hyperactivity disorder (ADHD), inattentive type, 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 [facility] [id number] [place] [address] 18449- 0812 Nov, Schizoaffective disorder, unspecified F25.9 [facility] [id number] [place] [address] 718385- 3235 Oct, Paranoid schizophrenia F20.0 [facility] [id number] [place] [address] 65854- 8975 Oct, [facility] [id number] [place] [address] 22919- 1436 Sep, Paranoid schizophrenia F20.0 ; Posttraumatic stress disorder F43.10 and Attention deficit hyperactivity disorder (ADHD), inattentive type, 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 [facility] [id number] [place] [address] 38049- 7430 Sep, [facility] [address]005[address]100[place] [address]- 6711 Sep, Paranoid schizophrenia F20.0 ; Posttraumatic stress disorder F43.10 and Attention deficit hyperactivity disorder (ADHD), inattentive type, 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 [facility] [address]00565100[place] [address]- 8357 Aug, Paranoid schizophrenia F20.0 [facility] [id number] [place] [address] 11178- 3612 Aug, [facility] [address]005[address]100[place] [address]- 9203 Aug, Posttraumatic stress disorder F43.10 ; Paranoid schizophrenia F20.0 and Attention deficit hyperactivity disorder (ADHD), inattentive type, 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 [facility] [address]005[address]100[place] [address]- 8312 Jul, Bipolar disorder, unspecified F31.9 [facility] [address]005[address]100[place] [address]- 9039 Jul, [facility] [id number] [place] [address] 93895- 8778 Jun, [facility] [address]005[address] [address]- 9757 Jun, Schizoaffective disorder, chronic 295.72 ; Posttraumatic stress disorder 309.81 and Attention deficit disorder 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 314.00 [facility] [address]00565[address] [address]- 3358 May, [facility] [address] [id number] [address]- 4689 May, [facility] [address] [address]- 4811 May, Schizoaffective disorder, chronic 295.72 ; Posttraumatic stress disorder 309.81 ; Attention deficit disorder 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 314.00 and Bipolar disorder, unspecified 296.80 [facility] [address]005[address] [address]- 2085 Apr, Schizoaffective disorder, chronic 295.72 [facility] [address]005[address] [address]- 0041 Apr, [facility] [address]005[address] [address]- 1708 Apr, Schizoaffective disorder, chronic 295.72 ; Posttraumatic stress disorder 309.81 and Attention deficit disorder 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 314.00 [facility] [address]005[address] [address]- 4034 Mar, Disorganized schizophrenia, 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 [id number] [id number] [address]- 2990 Mar, [facility] [address] [address] Mar, [facility] [address] [id number] 2671 Mar, [facility] [address] 8686 Mar, [facility] [address] [id number] [address]- 8206 February, Schizoaffective disorder, chronic 295.72 [facility] [address] 1443 February, [facility] [id number] [address] February, Attention deficit disorder 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 314.00 ; Posttraumatic stress disorder 309.81 and Schizoaffective disorder, chronic 295.72 [facility] [id number] [address] Jan, [facility] [id number] [address] Jan, [facility] [id number] [address] Jan, [facility] [id number] [address] Dec, [facility] [address] [id number] [address] Dec, [facility] [address] [id number] [address] [address] Dec, [facility] [address] [id number] [address] [address] Dec, [facility] [id number] [address] 10 Dec, 2014 [facility] [place] [facility] [address] [id number] [place] [address] 5387 Dec, 2014 [facility] [place] [facility] [address] [id number] [place] [address] 3269 Dec, 2014 [facility] [place] [facility] [address] [id number] [place] [address] 4133 Dec, 2014 [facility] [place] [facility] [address] [id number] [place] [address]- 5913 Nov, 2014 [facility] [place] [facility] [address] [id number] [place] [address]- 0560 Nov, 2014 [facility] [place] [facility] [address] [facility] [id number] [place] [address] 0450 Nov, 2014 [facility] [place] [facility] [address] [facility] [id number] [place] [address] 6777 Nov, 2014 [facility] [place] [facility] [address] [facility] [id number] [place] [address] 6878 Nov, 2014 [facility] [place] [facility] [address] [facility] [id number] [place] [address]- 0051 Nov, 2014 [facility] [place] [facility] [address] [facility] [id number] [place] [address]- 0296 Nov, 2014 [facility] [place] [facility] [address] [facility] [id number] [place] [address]- 2547 Nov, 2014 [facility] [place] [facility] [address] [id number] [place] [address]- 254 Nov, [facility] [place] [facility] [address] [id number] [place] [address]- 6854 Nov, [facility] [place] [facility] [address] [facility] [id number] [place] [address]- 7132 Oct, [facility] [place] [facility] [address] [facility] [id number] [place] [address]- 8925 Oct, [facility] [place] [facility] [address] [id number] [place] [address]- 5204 Oct, [facility] [place] [facility] [address] [id number] [place] [address]- 4116 15 Oct, 2014 [facility] [place] [facility] [address] [id number] [place] [address]- 3627 15 Oct, 2014 [facility] [place] [facility] [address] [id number] [place] [address]- 4482 Oct, [facility] [place] [facility] [address] [id number] [place] [address]- 7655 Oct, [facility] [place] [facility] [address] [id number] [place] [address]- 3005 17 Sep, 2014 [facility] [place] [facility] [address] [id number] [place] [address]- 5488 17 Sep, 2014 [facility] [place] [facility] [address] [id number] [place] [address]- 9026 15 Sep, 2014 [facility] [place] [facility] [address] [id number] [place] [address]- 9731 15 Sep, 2014 [facility] [place] [facility] [address] [id number] [place] [address]- 4103 20 Aug, 2014 [facility] [place] [facility] [address] [id number] [place] [address]- 7239 20 Aug, 2014 [facility] [place] [facility] [address] [id number] [address] 9731 14 Aug, 2014 [facility] [place] [facility] [address] [id number] [place] [address]- 6443 14 Aug, 2014 [facility] [place] [facility] [address] [id number] [place] [address]- 2009 14 Aug, 2014 [facility] [place] [facility] [address] [id number] [place] [address]- 5649 14 Aug, 2014 [facility] [place] [facility] [address] [id number] [place] [address]- 0123 29 Jul, 2014 [facility] [place] [facility] [address] [id number] [place] [address]- 4407 29 Jul, 2014 [facility] [place] [facility] [address] [id number] [place] [address]- 6538 24 Jul, 2014 [facility] [place] [facility] [address] [id number] [place] [address]- 1255 24 Jul, 2014 [facility] [place] [facility] [address] [id number] [place] [address]- 0271 15 Jul, 2014 [facility] [place] [facility] [address] [id number] [place] [address]- 4503 15 Jul, 2014 [facility] [place] [facility] [address] [id number] [place] [address]- 8745 27 Sep, 2013 [facility] [place] [facility] [address] [id number] [place] [address]- 6294 27 Sep, 2013 [facility] [place] [facility] [address] [id number] [place] [address] 2547 26 Sep, 2013 [facility] [place] [facility] [address] [id number] [place] [address] 2540 26 Sep, 2013 [facility] [place] [facility] [address] [id number] [place] [address] 2543 26 Sep, 2013 [facility] [place] [facility] [address] [id number] [place] [address] 2546 26 Sep, 2013 [facility] [place] [facility] [address] [id number] [place] [address] 2546 16 Sep, 2013 [facility] [place] [facility] [address] [id number] [place] [address] 2546 16 Sep, 2013 [facility] [place] [facility] [address] [id number] [place] [address] 2546 16 Sep, 2013 [facility] [place] [facility] [address] [id number] [place] [address] 2542 Jun, [facility] [place] [facility] [address] [id number] [place] [address]- 2647 Jun, [facility] [place] [facility] [address] [id number] [place] [address]- 5033 May, [facility] [place] [facility] [address] [id number] [place] [address]- 2642 May, [facility] [place] [facility] [address] [id number] [place] [address]- 1300 May, [facility] [place] [facility] [address] [id number] [place] [address]- 2152 May, [facility] [place] [facility] [address] [id number] [place] [address]- 5706 May, [facility] [place] [facility] [address] [id number] [place] [address]- 6579 May, [facility] [place] [facility] [address] [id number] [place] [address]- 3753 May, [facility] [place] [facility] [address] [id number] [place] [address]- 1719 May, [facility] [place] [facility] [address] [id number] [place] [address]- 5987 May, [facility] [place] [facility] [address] [id number] [place] [address]- 0750 May, [facility] [place] [facility] [address] [id number] [place] [address]- 2660 Apr, [facility] [place] [facility] [address] [id number] [place] [address]- 2679 Apr, [facility] [place] [facility] [address] [id number] [place] [address]- 8183 Apr, [facility] [place] [facility] [address] [id number] [place] [address]- 8447 Apr, [facility] [place] [facility] [address] [id number] [place] [address]- 0911 Apr, [facility] [place] [facility] [address] [id number] [place] [address]- 8183 Apr, [facility] [place] [facility] [address] [id number] [place] [address]- 1463 Apr, [facility] [place] [facility] [address] [id number] [place] [address]- 5863 Apr, [facility] [place] [facility] [address] [id number] [place] [address]- 6717 Apr, [facility] [place] [facility] [address] [id number] [place] [address]- 9284 Apr, [facility] [place] [facility] [address] [id number] [place] [address]- 1309 Mar, [facility] [place] [facility] [address] [id number] [place] [address]- 6964 Mar, [facility] [place] [facility] [address] [id number] [place] [address]- 4871 Mar, [facility] [place] [facility] [address] [id number] [place] [address]- 0921 Mar, [facility] [place] [facility] [address] [id number] [place] [address]- 7118 Mar, [facility] [place] [facility] [address] [id number] [place] [address]- 3756 Mar, [facility] [place] [facility] [address] [id number] [place] [address]- 5460 18 Mar, 2014 [facility] [place] [facility] [address] [id number] [place] [address]- 6118 16 Mar, 2014 [facility] [place] [facility] [address] [id number] [place] [address]- 4377 16 Mar, 2014 [facility] [place] [facility] [address] [id number] [place] [address]- 6490 13 Mar, 2014 [facility] [place] [facility] [address] [id number] [place] [address]- 2734 13 Mar, 2014 [facility] [place] [facility] [address] [id number] [place] [address]- 2976 Mar, [facility] [place] [facility] [address] [id number] [place] [address]- 5088 Mar, [facility] [place] [facility] [address] [id number] [place] [address]- 5470 Mar, [facility] [place] [facility] [address] [id number] [place] [address]- 8597 Mar, [facility] [place] [facility] [address] [id number] [place] [address]- 8803 Mar, [facility] [place] [facility] [address] [id number] [place] [address]- 3093 Mar, [facility] [place] [facility] [address] [id number] [place] [address]- 7427 Mar, [facility] [place] [facility] [address] [id number] [place] [address]- 3566 Mar, [facility] [place] [facility] [address] [id number] [place] [address]- 3040 Mar, [facility] [place] [facility] [address] [id number] [place] [address]- 1435 February, [facility] [place] [facility] [address] [id number] [place] [address]- 9500 February, [facility] [place] [facility] [address] [id number] [place] [address]- 0879 February, [facility] [place] [facility] [address] [id number] [place] [address]- 4853 February, [facility] [place] [facility] [address] [id number] [place] [address]- 1205 February, [facility] [place] [facility] [address] [id number] [place] [address]- 1092 February, [facility] [address] [id number] [place] [address]- 9190 February, [facility] [place] [facility] [address] [id number] [place] [address]- 6508 February, [facility] [place] [facility] [address] [id number] [place] [address]- 6690 February, [facility] [place] [facility] [address] [id number] [place] [address]- 0697 February, [facility] [place] [facility] [address] [id number] [place] [address]- 3293 February, [facility] [place] [facility] [address] [id number] [place] [address]- 2816 February, [facility] [place] [facility] [address] [id number] [place] [address]- 2789 February, [facility] [place] [facility] [address] [id number] [place] [address]- 9695 February, [facility] [place] [facility] [address] [id number] [place] [address]- 5140 February, [facility] [place] [facility] [address] [id number] [place] [address]- 9550 February, [facility] [place] [facility] [address] [id number] [place] [address]- 5451 February, [facility] [place] [facility] [address] [id number] [place] [address]- 6810 February, [facility] [place] [facility] [address] [id number] [place] [address]- 4554 February, [facility] [place] [facility] [address] [id number] [place] [address]- 2051 February, [facility] [place] [facility] [address] [id number] [place] [address] February, [facility] [place] [facility] [address] [id number] [place] [address]- 5559 30 Jan, 2014 [facility] [place] [facility] [address] [id number] [place] [address]- 4726 30 Jan, 2014 [facility] [place] [facility] [address] [id number] [place] [address]- 9732 18 Jan, 2014 [facility] [place] [facility] [address] [id number] [place] [address]- 7729 18 Jan, 2014 [facility] [place] [facility] [address] [id number] [place] [address]- 7467 18 Jan, 2014 [facility] [place] [facility] [address] [id number] [place] [address]- 3328 18 Jan, 2014 [facility] [place] [facility] [address] [id number] [place] [address]- 8080 10 Jan, 2014 [facility] [place] [facility] [address] [id number] [place] [address]- 1607 10 Jan, 2014 [facility] [place] [facility] [address] [id number] [place] [address]- 6346 21 Dec, 2013 [facility] [place] [facility] [address] [id number] [place] [address]- 3853 20 Dec, 2013 [facility] [place] [facility] [address] [facility] [id number] [place] [address]- 5661 20 Dec, 2013 [facility] [place] [facility] [address] [id number] [place] [address]- 0993 19 Dec, 2013 [facility] [place] [facility] [address] [id number] [place] [address]- 0626 19 Dec, 2013 [facility] [place] [facility] [address] [id number] [place] [address]- 5960 15 Dec, 2013 [facility] [place] [facility] [address] [id number] [place] [address]- 0601 15 Dec, 2013 [facility] [place] [facility] [address] [id number] [place] [address]- 8504 11 Dec, 2013 [facility] [place] [facility] [address] [id number] [place] [address]- 8005 Dec, [facility] [place] [facility] [address] [id number] [place] [address]- 9019 Dec, [facility] [place] [facility] [address] [id number] [place] [address]- 5547 18 Nov, 2013 [facility] [place] [facility] [address] [id number] [place] [address]- 6769 Nov, [facility] [place] [facility] [address] [id number] [place] [address]- 7066 Nov, [facility] [place] [facility] [address] [id number] [place] [address]- 4246 Nov, [facility] [place] [facility] [address] [id number] [place] [address]- 0878 Nov, [facility] [place] [facility] [address] [id number] [place] [address]- 0514 Oct, [facility] [place] [facility] [address] [id number] [place] [address]- 1516 Oct, [facility] [place] [facility] [address] [id number] [place] [address]- 5631 Oct, [facility] [place] [facility] [address] [id number] [place] [address]- 9442 Sep, [facility] [place] [facility] [address] [id number] [place] [address]- 1634 Sep, [facility] [place] [facility] [address] [id number] [place] [address]- 1269 Sep, [facility] [place] [facility] [address] [id number] [place] [address]- 0260 Sep, [facility] [place] [facility] [address] [id number] [place] [address]- 1703 Aug, [facility] [place] [facility] [address] [id number] [address]- 3749 Aug, [facility] [place] [facility] [address] [id number] [place] [address]- 6886 Jul, [facility] [place] [facility] [address] [id number] [place] [address]- 5999 Jul, [facility] [place] [facility] [address] [id number] [place] [address]- 1490 Jul, [facility] [place] [facility] [address] [id number] [place] [address]- 0595 Jul, [facility] [place] [facility] [address] [id number] [place] [address]- 9268 Jul, [facility] [place] [facility] [address] [id number] [place] [address]- 0988 Jun, [facility] [place] [facility] [address] [id number] [place] [address]- 6658 Jun, [facility] [place] [facility] [address] [id number] [place] [address]- 3411 19 Jun, 2013 [facility] [place] [facility] [address] [id number] [place] [address]- 7739 18 Jun, 2013 [facility] [place] [facility] [address] [id number] [place] [address]- 6106 16 Jun, 2013 [facility] [place] [facility] [address] [id number] [address]- 6442 12 Jun, 2013 [facility] [place] [facility] [address] [id number] [address]- 9327 11 Jun, 2013 [facility] [place] [facility] [address] [id number] [place] [address]- 9752 30 May, 2013 [facility] [place] [facility] [address] [id number] [place] [address]- 4211 May, [facility] [place] [facility] [address] [id number] [place] [address]- 7342 Apr, [facility] [place] [facility] [address] [id number] [place] [address]- 6855 Apr, [facility] [address] [id number] [place] [address]- 9119 Apr, [facility] [address] [id number] [place] [address]- 5276 Mar, [facility] [address] [id number] [place] [address] 2546 Mar, [facility] [address] [id number] [place] [address]- 9941 February, [facility] [address] [id number] [place] [address]- 9180 February, [facility] [address] [id number] [place] [address]- 8365 February, [facility] [address] [id number] [place] [address]- 2156 February, [facility] [address] [id number] [place] [address]- 4744 Jan, [facility] [address] [id number] [place] [address]- 3955 Jan, [facility] [address] [id number] [place] [address]- 1330 16 Jan, 2013 [facility] [address] [id number] [place] [address]- 254 29 Dec, 2012 [facility] [address] [id number] [place] [address]- 9978 Dec, [facility] [address] [id number] [place] [address]- 5076 Dec, [facility] [address] [id number] [place] [address]- 2546 08 Dec, 2012 [facility] [address] [id number] [place] [address]- 8437 Nov, [facility] [address] [id number] [place] [address]- 9142 Nov, [facility] [place] [facility] [address] [id number] [place] [address]- 3432 Oct, [facility] [place] [facility] [address] [id number] [place] [address]- 3509 Oct, [facility] [place] [facility] [address] [id number] [place] [address]- 2350 Oct, [facility] [place] [facility] [address] [id number] [place] [address]- 6549 Oct, [facility] [place] [facility] [address] [id number] [place] [address]- 4604 Aug, [facility] [place] [facility] [address] [id number] [place] [address] Aug, [facility] [place] [facility] [address] [id number] [place] [address] Jun, [facility] [place] [facility] [address] [id number] [place] [address] May, [facility] [place] [facility] [address] [id number] [place] [address] May, [facility] [place] [address] [id number] [address] Apr, [facility] [place] [facility] [address] [id number] [place] [address] Apr, [facility] [place] [address] [id number] [place] [address] Apr, [facility] [place] [address] [id number] [place] [address] Mar, [facility] [place] [address] [id number] [place] [address] Mar, [facility] [place] [facility] [address] [id number] [place] [address] 13 Mar, 2012 [facility] [address] [id number] [place] [address] Mar, [facility] [place] [facility] [address] [id number] [place] [address] Mar, [facility] [address] [id number] [place] [address] February, [facility] [address] [id number] [place] [address] February, [facility] [address] [id number] [place] [address] February, [facility] [address] [id number] [place] [address] February, [facility] [address] [id number] [place] [address] February, [facility] [address] [id number] [place] [address] February, [facility] [address] [id number] [place] [address] February, [facility] [address] [id number] [place] [address] Jan, [facility] [address] [id number] [place] [address]- [address] 18 Jan, 2012 [facility] [address] [id number] [place] [address] 17 Jan, 2012 [facility] [facility] [address] [id number] [place] [address]- [address] 13 Jan, 2012 [facility] [address] [id number] [place] [address] 10 Jan, 2012 [facility] [address] [id number] [place] [address]- [address] 04 Jan, 2012 [facility] [place] [facility] [address] [id number] [place] [address] 30 Dec, 2011 [facility] [address] [id number] [place] [address] 24 Dec, 2011 [facility] [address] [id number] [place] [address]46 20 Dec, 2011 [facility] [address] [id number] [place] [address] 2546 13 Dec, 2011 [facility] [address] [id number] [place] [address] 06 Dec, 2011 [facility] [address] [id number] [place] [address] 69[address] 28 Nov, 2011 [facility] [address] [id number] [place] [address] Nov, [facility] [address] [id number] [place] [address] Nov, [facility] [place] [facility] [address] [id number] [place] [address]- [address] 14 Nov, 2011 [facility] [address] [id number] [place] [address] Nov, [facility] [address] [id number] [place] [address] Nov, [facility] [address] [id number] [place] [address] Oct, [facility] [address] [id number] [place] [address] 2546 Oct, [facility] [address] [id number] [place] [address] 2546 Oct, [facility] [address] [id number] [place] [address] 2546 Oct, [facility] [address] [id number] [place] [address]- [address] 03 Oct, 2011 [facility] [address] [id number] [place] [address]- [address] 27 Sep, 2011 [facility] [address] [id number] [place] [address] Sep, [facility] [address] [id number] [place] [address] 20 Sep, 2011 [facility] [address] [id number] [place] [address]- 288[address] 14 Sep, 2011 [facility] [address] [id number] [place] [address]- 48[address] 14 Sep, 2011 [facility] [address] [id number] [place] [address]- [address]136 13 Sep, 2011 [facility] [address] [id number] [place] [address]- [address] Sep, [facility] [address] [id number] [place] [address]- [address]661 Sep, [facility] [address] [id number] [place] [address]- 4[address] 05 Sep, 2011 [facility] [address] [id number] [place] [address]- 7546 30 Aug, 2011 [facility] [address] [id number] [place] [address] 3665 30 Aug, 2011 [facility] [address] [id number] [place] [address]- 7974 Aug, [facility] [address] [id number] [place] [address]- [address]481 Aug, [facility] [address] [id number] [place] [address] 89[address] Aug, [facility] [address] [id number] [place] [address]- 6291 Aug, [facility] [address] [id number] [place] [address]- 9457 16 Aug, 2011 [facility] [address] [id number] [place] [address]- 1204 16 Aug, 2011 [facility] [address] [id number] [place] [address]- [address]997 10 Aug, 2011 [facility] [address] [id number] [place] [address]- 6[address] Aug, [facility] [address] [id number] [place] [address]- 1233 Aug, [facility] [address] [id number] [place] [address]- [address] Aug, [facility] [address] [id number] [place] [address]- 95[address] Jul, [facility] [address] [id number] [place] [address]- [address] Jul, [facility] [address] [address] [id number] [place] [address] 24 Jul, 2011 [facility] [place] [facility] [address] [id number] [place] [address] Jul, [facility] [place] [facility] [address] [id number] [place] [address] Jul, [facility] [place] [facility] [address] [id number] [place] [address] 19 Jul, 2011 [facility] [place] [facility] [address] [id number] [place] [address] 18 Jul, 2011 [facility] [place] [facility] [address] [id number] [place] [address] 11 Jul, 2011 [facility] [place] [facility] [address] [id number] [place] [address] 10 Jul, 2011 [facility] [place] [facility] [address] [id number] [place] [address] 10 Jul, 2011 [facility] [address] [facility] [id number] [address] Nov, [facility] [address] [id number] [address] Aug, [facility] [address] [id number] [address] Aug, [facility] [address] [id number] [address] Aug, [facility] [address] [facility] [id number] [address] Aug, [facility] [address] [id number] [address] Jul, IMMUNIZATIONS No Known Immunizations SOCIAL HISTORY Never Assessed REASON FOR VISIT Medication question-Intuniv PLAN OF CARE VITAL SIGNS MEDICATIONS Unknown [...] Suicide attempt by hanging 06/14/2016 Hospitalization History [facility] 01/30/2018-02/10/2008
--- OUTSIDE RECORDS SUMMARY | 2018-08-15 20:40 | XMS REPORT ---
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 150546771 Problem Borderline personality disorder F60.3 Active 81316045 Problem High risk medication use Z79.899 Active 688325560 Problem Schizoaffective disorder, unspecified F25.9 Active 43462255 Problem Paranoid schizophrenia F20.0 Active 57205138 Problem Posttraumatic stress disorder F43.10 Active 34972440 Problem Attention deficit hyperactivity disorder (ADHD), inattentive type, 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 20336964 Problem Posttraumatic stress disorder 309.81 Active 53792105 Problem Obsessive-compulsive disorders 300.3 Active 022082677 Problem Generalized anxiety disorder 300.02 Active 96054703 Problem Attention deficit disorder 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 314.00 Active 48125118 Problem Bipolar disorder, unspecified 296.80 Active 38633473 ALLERGIES Substance Reaction Event Type Date Status [...] and vomiting Non Drug Allergy Sep, Active ENCOUNTERS Encounter Location Date Diagnosis [facility] [address] [facility] [id number] [address] Mar, [facility] [address], [place] [address] February, Paranoid schizophrenia F20.0 [facility] [address], [place] [address] February, Paranoid schizophrenia F20.0 ; Posttraumatic stress disorder F43.10 ; Attention deficit hyperactivity disorder (ADHD), inattentive type, 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 and Borderline personality disorder F60.3 [facility] [address], [place] [address] February, Paranoid schizophrenia F20.0 ; Posttraumatic stress disorder F43.10 ; Attention deficit hyperactivity disorder (ADHD), inattentive type, 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 and Borderline personality disorder F60.3 [facility] [address], [place] [address] February, [facility] [address], [place] [address] February, Paranoid schizophrenia F20.0 [facility] [address] [id number], [place] [address] February, Paranoid schizophrenia F20.0 [facility] [address], [place] [address] February, Paranoid schizophrenia F20.0 ; Posttraumatic stress disorder F43.10 ; Attention deficit hyperactivity disorder (ADHD), inattentive type, 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 and Borderline personality disorder F60.3 [facility] [address] [id number], [place] [address] Jan, Paranoid schizophrenia F20.0 ; Posttraumatic stress disorder F43.10 ; Attention deficit hyperactivity disorder (ADHD), inattentive type, 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 and Borderline personality disorder F60.3 [facility] [address] [id number], [place] [address] Jan, Paranoid schizophrenia F20.0 [facility] [address] [id number], [place] [address] Jan, Paranoid schizophrenia F20.0 [facility] [address], [place] [address] Jan, Paranoid schizophrenia F20.0 ; Posttraumatic stress disorder F43.10 ; Attention deficit hyperactivity disorder (ADHD), inattentive type, 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 and Borderline personality disorder F60.3 [facility] [address], [place] [address] Dec, [facility] [id number], [place] [address] Nov, Paranoid schizophrenia F20.0 ; Posttraumatic stress disorder F43.10 ; Attention deficit hyperactivity disorder (ADHD), inattentive type, 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 and Borderline personality disorder F60.3 [facility] [address], [place] [address] Nov, [facility] [id number] [place] [address]- 3234 Oct, Paranoid schizophrenia F20.0 [facility] [address], [place] [address] Oct, Paranoid schizophrenia F20.0 ; Posttraumatic stress disorder F43.10 ; Attention deficit hyperactivity disorder (ADHD), inattentive type, 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 ; Borderline personality disorder F60.3 and Other prison ( 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 Z79.899 [facility] [address], [place] [address] Oct, [facility] [address], [place] [address] 74[address] Oct, [facility] [id number], [place] [address] Sep, [facility] [address], [place] [address] 47[address] Sep, Paranoid schizophrenia F20.0 ; Posttraumatic stress disorder F43.10 ; Attention deficit hyperactivity disorder (ADHD), inattentive type, 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 and Borderline personality disorder F60.3 [facility] [address], [place] [address] Sep, Paranoid schizophrenia F20.0 [facility] [address] [id number], [place] [address] 34[address] Aug, Paranoid schizophrenia F20.0 ; Posttraumatic stress disorder F43.10 ; Attention deficit hyperactivity disorder (ADHD), inattentive type, 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 and Borderline personality disorder F60.3 [facility] [address], [place] [address] Aug, Paranoid schizophrenia F20.0 ; Posttraumatic stress disorder F43.10 ; Attention deficit hyperactivity disorder (ADHD), inattentive type, 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 and Borderline personality disorder F60.3 [facility] [address], [place] [address] Aug, [facility] [address], [place] [address] 89[address] Jul, Paranoid schizophrenia F20.0 ; Posttraumatic stress disorder F43.10 ; Attention deficit hyperactivity disorder (ADHD), inattentive type, 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 and Borderline personality disorder F60.3 [facility] [address], [place] [address] 289[address] Jul, Paranoid schizophrenia F20.0 [facility] [address], [place] [address] Jul, Paranoid schizophrenia F20.0 ; Posttraumatic stress disorder F43.10 ; Attention deficit hyperactivity disorder (ADHD), inattentive type, 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 and Borderline personality disorder F60.3 [facility] [address], [place] [address] Jun, Paranoid schizophrenia F20.0 ; Posttraumatic stress disorder F43.10 ; Attention deficit hyperactivity disorder (ADHD), inattentive type, 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 and Borderline personality disorder F60.3 [facility] [address] [facility] [id number], [place] [address] May, Other prison (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 Z79.899 [facility] [address] [facility] [id number] [place] [address]- 8676 May, [facility] [address] [id number] [place] [address] May, [facility] [address] [facility] [id number], [place] [address] May, Attention deficit hyperactivity disorder (ADHD), inattentive type, 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 [facility] [address] [id number] [place] [address]- 1624 May, [facility] [address] [facility] [id number], [place] [address] May, Attention deficit hyperactivity disorder (ADHD), inattentive type, 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 [facility] [address] [id number], [place] [address]- 4870 May, Paranoid schizophrenia F20.0 ; Posttraumatic stress disorder F43.10 ; Attention deficit hyperactivity disorder (ADHD), inattentive type, 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 and Other prison (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 Z79.899 [facility] [address] [id number], [place] [address] Apr, Paranoid schizophrenia F20.0 [facility] [address] [id number], [place] [address]- 7318 Apr, Paranoid schizophrenia F20.0 ; Posttraumatic stress disorder F43.10 and Attention deficit hyperactivity disorder (ADHD), inattentive type, 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 [facility] [address] [id number], [place] [address]- [address] February, [facility] [address] [facility] [id number], [place] [address]- [address] February, Paranoid schizophrenia F20.0 ; Posttraumatic stress disorder F43.10 and Attention deficit hyperactivity disorder (ADHD), inattentive type, 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 [facility] [address] [id number], [place] [address] February, Paranoid schizophrenia F20.0 ; Posttraumatic stress disorder F43.10 and Attention deficit hyperactivity disorder (ADHD), inattentive type, 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 [facility] [address], [place] [address]- 6[address] Jan, Paranoid schizophrenia F20.0 ; Posttraumatic stress disorder F43.10 and Attention deficit hyperactivity disorder (ADHD), inattentive type, 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 [facility] [id number] [place] [address] [id number] Dec, Dental examination Z01.20 [facility] [address] [id number] [place] [address] [id number] Nov, Dental examination Z01.20 [facility] [id number] [place] [address] [id number] Nov, Dental examination Z01.20 [facility] [id number] [place] [address] [id number] Nov, Dental caries K02.9 [facility] [address] [place] [address] 28627- 4976 Nov, High risk medication use Z79.899 [facility] [address] [place] [address] 80009- 1469 Nov, Paranoid schizophrenia F20.0 ; Posttraumatic stress disorder F43.10 ; Attention deficit hyperactivity disorder (ADHD), inattentive type, 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 and Borderline personality disorder in adult F60.3 [facility] [address] [place] [address] [id number] Oct, Dental caries K02.9 [facility] [address], [place] [address]- [address] 05 Sep, 2016 Paranoid schizophrenia F20.0 ; Posttraumatic stress disorder F43.10 and Attention deficit hyperactivity disorder (ADHD), inattentive type, 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 [facility] [address], [place] [address]- 9940 Aug, Paranoid schizophrenia F20.0 ; Posttraumatic stress disorder F43.10 and Attention deficit hyperactivity disorder (ADHD), inattentive type, 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 [facility] [address], [place] [address] Aug, Strep throat J02.0 and Cough R05 [facility] [address], [place] [address]- 2560 Aug, [facility] [id number] [place] [address] 41191- 6676 Jul, Paranoid schizophrenia F20.0 ; Posttraumatic stress disorder F43.10 and Attention deficit hyperactivity disorder (ADHD), inattentive type, 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 [facility] [address] [place] [address] 10626- 9171 Jul, [facility] [address] [place] [address] 24662- 7556 Jun, Paranoid schizophrenia F20.0 ; Posttraumatic stress disorder F43.10 and Attention deficit hyperactivity disorder (ADHD), inattentive type, 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 [facility] [address] [id number] Jun, Dental examination Z01.20 [facility] [address], [place] [address]- 7271 Jun, [facility] [address] [place] [address] 47301- 3232 May, Paranoid schizophrenia F20.0 [facility] [address] [place] [address] 40814- 7182 May, Paranoid schizophrenia F20.0 ; Posttraumatic stress disorder F43.10 and Attention deficit hyperactivity disorder (ADHD), inattentive type, 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 [facility] [address] [place] [address], [place] [address]- [address] May, [facility] [address] [facility] [id number], [place] [address]- 8519 May, Paranoid schizophrenia F20.0 [facility] [address] [facility] [id number] [place] [address]- 5059 May, [facility] [address] [facility] [id number], [place] [address]- 4185 May, Paranoid schizophrenia F20.0 [facility] [address] [facility] [id number] [place] [address]- 2008 May, Schizoaffective disorder, unspecified F25.9 [facility] [address] [id number] [place] [address]- 8827 May, Schizoaffective disorder, unspecified F25.9 [facility] [address] [id number], [place] [address]- 1006 May, [facility] [address] [facility] [id number], [place] [address]- 0518 May, Paranoid schizophrenia F20.0 [facility] [address] [id number], [place] [address]- 6522 May, Paranoid schizophrenia F20.0 ; Posttraumatic stress disorder F43.10 and Attention deficit hyperactivity disorder (ADHD), inattentive type, 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 [facility] [address] [facility] [id number], [place] [address]- 3147 Mar, [facility] [address] [facility] [id number], [place] [address]- 6391 Mar, Paranoid schizophrenia F20.0 ; Posttraumatic stress disorder F43.10 and Attention deficit hyperactivity disorder (ADHD), inattentive type, 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 [facility] [address] [facility] [id number], [place] [address]- 9838 Mar, Paranoid schizophrenia F20.0 [facility] [address] [id number], [place] [address]- 5844 Mar, Paranoid schizophrenia F20.0 ; Attention deficit hyperactivity disorder (ADHD), inattentive type, 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 and Posttraumatic stress disorder F43.10 [facility] [address] [facility] [id number], [place] [address]- 8097 Mar, [facility] [address] [facility] [id number] [place] [address] 19297- 2475 Mar, Paranoid schizophrenia F20.0 ; Posttraumatic stress disorder F43.10 and Attention deficit hyperactivity disorder (ADHD), inattentive type, 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 [facility] [address] [facility] [id number] [place] [address] 48570- 8254 February, [facility] [address] [id number], [place] [address]- 9689 February, [facility] [id number] [place] [address] 52554- 6558 February, [facility] [id number] [place] [address] 03375- 6252 February, [facility] [id number] [place] [address] 86884- 9286 Jan, Paranoid schizophrenia F20.0 [facility] [address] [id number] [id number] Jan, Dental examination Z01.20 [facility] [id number] [place] [address] [id number] Jan, Dental caries K02.9 [facility] [id number] [place] [address] [id number] Jan, Dental examination Z01.20 [facility] [id number] [place] [address] [id number] Dec, Encounter for dental examination Z01.20 [facility] [address] [id number] [address]286 Dec, Paranoid schizophrenia F20.0 [facility] [address] [id number] [address] Dec, Dental examination Z01.20 [facility] [address], [place] [address]- 5653 Dec, [facility] [address], [place] [address]- 8607 Dec, Paranoid schizophrenia F20.0 ; Posttraumatic stress disorder F43.10 and Attention deficit hyperactivity disorder (ADHD), inattentive type, 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 [facility] [address], [place] [address]- 5569 Nov, Schizoaffective disorder, unspecified F25.9 [facility] [address], [place] [address]- 1152 Oct, Paranoid schizophrenia F20.0 [facility] [address], [place] [address]- 2905 Oct, [facility] [address] [place] [address] 42827- 9650 Sep, Paranoid schizophrenia F20.0 ; Posttraumatic stress disorder F43.10 and Attention deficit hyperactivity disorder (ADHD), inattentive type, 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 [facility] [address], [place] [address]- 1635 Sep, [facility] [address], [place] [address]- 5833 Sep, Paranoid schizophrenia F20.0 ; Posttraumatic stress disorder F43.10 and Attention deficit hyperactivity disorder (ADHD), inattentive type, 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 [facility] [address], [place] [address]- 3968 Aug, Paranoid schizophrenia F20.0 [facility] [address], [place] [address]- 5508 Aug, [facility] [address] [place] [address] 41993- 4881 Aug, Posttraumatic stress disorder F43.10 ; Paranoid schizophrenia F20.0 and Attention deficit hyperactivity disorder (ADHD), inattentive type, 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 [facility] [address], [place] [address]- 8500 Jul, Bipolar disorder, unspecified F31.9 [facility] [address] [place] [address] 01649- 2574 Jul, [facility] [id number] [place] [address] 17761- 1093 Jun, [facility] [id number] [place] [address] 00432- 8190 Jun, Schizoaffective disorder, chronic 295.72 ; Posttraumatic stress disorder 309.81 and Attention deficit disorder 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 314.00 [facility] [id number] [place] [address] 71714- 3536 May, [facility] [address] [place] [address] 38363- 4676 May, [facility] [id number] [place] [address] 93444- 7194 May, Schizoaffective disorder, chronic 295.72 ; Posttraumatic stress disorder 309.81 ; Attention deficit disorder 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 314.00 and Bipolar disorder, unspecified 296.80 [facility] [address], [place] [address]- 5481 Apr, Schizoaffective disorder, chronic 295.72 [facility] [address], [place] [address]- 3666 Apr, [facility] [id number] [place] [address] 57624- 4603 Apr, Schizoaffective disorder, chronic 295.72 ; Posttraumatic stress disorder 309.81 and Attention deficit disorder 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 hyperactivity 314.00 [facility] [address], [place] [address]- 2116 Mar, Disorganized schizophrenia, 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 [facility] [address], [place] [address]- 6007 Mar, [facility] [address], [place] [address]- 1841 Mar, [facility] [address], [place] [address]- 6664 Mar, [facility] [address], [place] [address]- 3484 Mar, [facility] [id number] [place] [address] 06389- 9057 February, Schizoaffective disorder, chronic 295.72 [facility] [address]19765[place], [place] [address]- 4190 February, [facility] [id number] [place] [address] 70510- 9019 February, Attention deficit disorder of childhood without mention of hyperactivity 314.00 ; Posttraumatic stress disorder 309.81 and Schizoaffective disorder, chronic 295.72 [facility] [address], [place] [address]- 5812 Jan, [facility] [address], [place] [address]- 6117 Jan, [facility] [address], [place] [address]- 4320 Jan, [facility] [address], [place] [address]- 4793 Dec, [facility] [address] [address]- 1316 Dec, [facility] [address] [address]- 6914 Dec, [facility] [id number], [place] [address]- 6662 Dec, [facility] [place] [facility] [address] [id number] [place] [address]- 2208 Dec, 2014 [facility] [place] [facility] [address] [id number] [place] [address]- 0736 Dec, 2014 [facility] [place] [facility] [address] [id number] [place] [address]- 6796 Dec, 2014 [facility] [place] [facility] [address] [id number] [place] [address]- 5277 Dec, [facility] [place] [facility] [address] [id number] [place] [address]- 2915 Nov, 2014 [facility] [place] [facility] [address] [id number] [place] [address]- 3398 Nov, 2014 [facility] [place] [facility] [address] [facility] [id number] [place] [address]- 8697 Nov, 2014 [facility] [place] [facility] [address] [facility] [id number] [place] [address]- 0464 Nov, 2014 [facility] [place] [facility] [address] [facility] [id number] [place] [address]- 1401 Nov, 2014 [facility] [place] [facility] [address] [facility] [id number] [place] [address]- 6600 Nov, 2014 [facility] [place] [facility] [address] [facility] [id number] [place] [address]- 2546 Nov, 2014 [facility] [place] [facility] [address] [facility] [id number] [place] [address]- 2543 Nov, [facility] [place] [facility] [address] [facility] [id number] [place] [address] Nov, 2014 [facility] [place] [facility] [address] [facility] [id number] [place] [address] Nov, 2014 [facility] [place] [facility] [address] [facility] [id number] [place] [address] Oct, [facility] [place] [facility] [address] [id number] [place] [address] Oct, [facility] [place] [facility] [address] [id number] [place] [address] Oct, [facility] [place] [facility] [address] [id number] [place] [address] 15 Oct, 2014 [facility] [place] [facility] [address] [id number] [place] [address]- 2303 15 Oct, 2014 [facility] [place] [facility] [address] [id number] [place] [address] 3702 Oct, [facility] [place] [facility] [address] [id number] [place] [address] 2410 Oct, [facility] [place] [facility] [address] [id number] [place] [address] 9624 17 Sep, 2014 [facility] [place] [facility] [address] [id number] [place] [address]- 3541 17 Sep, 2014 [facility] [place] [facility] [address] [id number] [place] [address]- 5822 15 Sep, 2014 [facility] [place] [facility] [address] [id number] [place] [address]- 9981 15 Sep, 2014 [facility] [place] [facility] [address] [id number] [place] [address]- 1737 20 Aug, 2014 [facility] [place] [facility] [address] [id number] [place] [address]- 7975 20 Aug, 2014 [facility] [place] [facility] [address] [id number] [place] [address]- 8006 14 Aug, 2014 [facility] [place] [facility] [address] [id number] [place] [address]- 9429 14 Aug, 2014 [facility] [place] [facility] [address] [id number] [place] [address]- 3443 14 Aug, 2014 [facility] [place] [facility] [address] [id number] [place] [address]- 5573 14 Aug, 2014 [facility] [place] [facility] [address] [id number] [place] [address]- 6034 29 Jul, 2014 [facility] [place] [facility] [address] [id number] [place] [address]- 5683 29 Jul, 2014 [facility] [place] [facility] [address] [id number] [place] [address]- 0199 24 Jul, 2014 [facility] [place] [facility] [address] [id number] [place] [address]- 4689 24 Jul, 2014 [facility] [place] [facility] [address] [id number] [place] [address]- 5959 15 Jul, 2014 [facility] [place] [facility] [address] [id number] [place] [address]- 8042 15 Jul, 2014 [facility] [place] [facility] [address] [id number] [place] [address]- 4310 27 Jun, 2013 [facility] [place] [facility] [address] [id number] [place] [address]- 0149 27 Sep, 2013 [facility] [place] [facility] [address] [id number] [place] [address]- 1249 26 Sep, 2013 [facility] [place] [facility] [address] [id number] [place] [address]- 2549 26 Sep, 2013 [facility] [place] [facility] [address] [id number] [place] [address]- 2549 26 Sep, 2013 [facility] [place] [facility] [address] [id number] [place] [address]- 2549 26 Sep, 2013 [facility] [place] [facility] [address] [id number] [place] [address] 2540 16 Sep, 2013 [facility] [place] [facility] [address] [id number] [place] [address]- 2546 16 Sep, 2013 [facility] [place] [facility] [address] [id number] [place] [address]- 2544 16 Sep, 2013 [facility] [place] [facility] [address] [id number] [place] [address]- 0745 Jun, [facility] [place] [facility] [address] [id number] [place] [address]- 8359 Jun, [facility] [place] [facility] [address] [id number] [place] [address]- 3964 May, [facility] [place] [facility] [address] [id number] [place] [address]- 8005 May, [facility] [place] [facility] [address] [id number] [place] [address]- 5455 May, [facility] [place] [facility] [address] [id number] [place] [address]- 8264 May, [facility] [place] [facility] [address] [id number] [place] [address]- 8674 May, [facility] [place] [facility] [address] [id number] [place] [address]- 6225 May, [facility] [place] [facility] [address] [id number] [place] [address]- 4004 May, [facility] [place] [facility] [address] [id number] [place] [address]- 3319 May, [facility] [place] [facility] [address] [id number] [place] [address]- 1559 May, [facility] [place] [facility] [address] [id number] [place] [address]- 1811 May, [facility] [place] [facility] [address] [id number] [place] [address]- 3753 Apr, [facility] [place] [facility] [address] [id number] [place] [address]- 9604 Apr, [facility] [place] [facility] [address] [id number] [place] [address]- 5060 Apr, [facility] [place] [facility] [address] [id number] [place] [address]- 0885 Apr, [facility] [place] [facility] [address] [id number] [place] [address]- 1218 Apr, [facility] [place] [facility] [address] [id number] [place] [address]- 0940 Apr, [facility] [place] [facility] [address] [id number] [place] [address]- 5383 Apr, [facility] [place] [facility] [address] [id number] [place] [address]- 3082 Apr, [facility] [place] [facility] [address] [id number] [place] [address]- 0559 Apr, [facility] [place] [facility] [address] [id number] [place] [address]- 0186 Apr, [facility] [place] [facility] [address] [id number] [place] [address]- 7269 Mar, [facility] [place] [facility] [address] [id number] [place] [address]- 5778 Mar, [facility] [place] [facility] [address] [id number] [place] [address]- 4431 Mar, [facility] [place] [facility] [address] [id number] [place] [address]- 4614 Mar, [facility] [place] [facility] [address] [id number] [place] [address]- 1514 Mar, [facility] [place] [facility] [address] [id number] [place] [address]- 9759 Mar, [facility] [place] [facility] [address] [id number] [place] [address]- 9911 Mar, [facility] [place] [facility] [address] [id number] [place] [address]- 0015 16 Mar, 2014 [facility] [place] [facility] [address] [id number] [place] [address]- 3349 Mar, [facility] [place] [facility] [address] [id number] [place] [address]- 3288 Mar, [facility] [place] [facility] [address] [id number] [place] [address]- 9297 Mar, [facility] [place] [facility] [address] [id number] [place] [address]- 7142 Mar, [facility] [place] [facility] [address] [id number] [place] [address]- 2828 Mar, [facility] [place] [facility] [address] [id number] [place] [address]- 2721 Mar, [facility] [place] [facility] [address] [id number] [place] [address]- 6941 Mar, [facility] [place] [facility] [address] [id number] [place] [address]- 8664 Mar, [facility] [place] [facility] [address] [id number] [place] [address]- 9040 Mar, [facility] [place] [facility] [address] [id number] [place] [address]- 7232 Mar, [facility] [place] [facility] [address] [id number] [place] [address]- 8207 Mar, [facility] [place] [facility] [address] [id number] [place] [address]- 8038 Mar, [facility] [place] [facility] [address] [id number] [place] [address]- 4347 February, [facility] [place] [facility] [address] [id number] [place] [address]- 4634 February, [facility] [place] [facility] [address] [id number] [place] [address]- 0811 February, [facility] [place] [facility] [address] [id number] [place] [address]- 1130 February, [facility] [place] [facility] [address] [id number] [place] [address]- 6467 February, [facility] [address] [id number] [place] [address]- 8621 February, [facility] [place] [facility] [address] [id number] [place] [address]- 9810 February, [facility] [place] [facility] [address] [id number] [place] [address]- 2250 February, [facility] [place] [facility] [address] [id number] [place] [address]- 0988 February, [facility] [address] [id number] [place] [address]- 2838 February, [facility] [place] [facility] [address] [id number] [place] [address]- 9857 February, [facility] [address] [id number] [place] [address]- 2467 February, [facility] [address] [id number] [place] [address]- 2261 February, [facility] [place] [facility] [address] [id number] [place] [address]- 3961 February, [facility] [place] [facility] [address] [id number] [place] [address]- 8067 February, [facility] [place] [facility] [address] [id number] [place] [address]- 8356 February, [facility] [place] [facility] [address] [id number] [place] [address]- 8126 February, [facility] [place] [facility] [address] [id number] [place] [address]- 2997 February, [facility] [place] [facility] [address] [id number] [place]25 February, [facility] [place] [facility] [address] [id number] [place] [address]- 0174 February, [facility] [place] [facility] [address] [id number] [place] [address]- 8120 February, [facility] [place] [facility] [address] [id number] [place] [address]- 5566 30 Jan, 2014 [facility] [place] [facility] [address] [id number] [place]42 30 Jan, 2014 [facility] [place] [facility] [address] [id number] [place] [address]- 0701 Jan, [facility] [place] [facility] [address] [id number] [place] [address]- 2720 Jan, [facility] [place] [facility] [address] [id number] [place] [address]- 4462 Jan, [facility] [place] [facility] [address] [id number] [place] [address]- 9209 Jan, [facility] [place] [facility] [address] [id number] [place] [address]- 1715 Jan, [facility] [place] [facility] [address] [id number] [place] [address]- 5430 Jan, [facility] [place] [facility] [address] [id number] [place] [address]- 0396 Dec, [facility] [place] [facility] [address] [id number] [place] [address]- 8387 Dec, [facility] [place] [facility] [address] [id number] [place] [address]- 7535 20 Dec, 2013 [facility] [place] [facility] [address] [id number] [place] [address]- 5822 19 Dec, 2013 [facility] [place] [facility] [address] [id number] [place] [address]- 8447 19 Dec, 2013 [facility] [place] [facility] [address] [id number] [place] [address]- 2780 15 Dec, 2013 [facility] [place] [facility] [address] [id number] [place] [address]- 3834 15 Dec, 2013 [facility] [place] [facility] [address] [id number] [place] [address]- 9284 11 Dec, 2013 [facility] [place] [facility] [address] [id number] [place] [address]- 7161 10 Dec, 2013 [facility] [place] [facility] [address] [id number] [place] [address]- 3127 Dec, [facility] [place] [facility] [address] [id number] [place] [address]- 3926 18 Nov, 2013 [facility] [place] [facility] [address] [id number] [place] [address]- 6254 Nov, [facility] [place] [facility] [address] [id number] [place] [address]- 6318 Nov, [facility] [place] [facility] [address] [id number] [place] [address]- 8639 Nov, [facility] [place] [facility] [address] [id number] [place] [address]- 1287 Nov, [facility] [place] [facility] [address] [id number] [place] [address]- 2657 Oct, [facility] [place] [facility] [address] [id number] [place] [address]- 9619 Oct, [facility] [place] [facility] [address] [id number] [place] [address]- 6399 Oct, [facility] [place] [facility] [address] [id number] [place] [address]- 2341 Sep, [facility] [place] [facility] [address] [id number] [place] [address]- 8798 Sep, [facility] [place] [facility] [address] [id number] [place] [address]- 3747 Sep, [facility] [place] [facility] [address] [id number] [place] [address]26 Sep, [facility] [place] [facility] [address] [id number], [place] [address]- 4860 Aug, [facility] [place] [facility] [address] [id number] [place] [address]- 5842 Aug, [facility] [place] [facility] [address] [id number] [place] [address]- 7670 Jul, [facility] [place] [facility] [address] [id number] [place] [address]- 3397 Jul, [facility] [place] [facility] [address] [id number] [place] [address]- 5027 Jul, [facility] [place] [facility] [address] [id number] [place] [address]- 6227 Jul, [facility] [place] [facility] [address] [id number] [place] [address]- 4389 Jul, [facility] [place] [facility] [address] [id number] [place] [address]- 9748 Jun, [facility] [place] [facility] [address] [id number] [place] [address]- 8916 25 Jun, 2013 [facility] [place] [facility] [address] [id number] [place] [address]- 1663 19 Jun, 2013 [facility] [place] [facility] [address] [id number] [place] [address]- 9884 18 Jun, 2013 [facility] [place] [facility] [address] [id number], [place] [address]- 3064 16 Jun, 2013 [facility] [place] [facility] [address] [id number], [place] [address]- 8005 12 Jun, 2013 [facility] [place] [facility] [address] [id number] [place] [address]- 9647 11 Jun, 2013 [facility] [place] [facility] [address] [id number], [place] [address]- 9226 30 May, 2013 [facility] [place] [facility] [address] [id number] [place] [address]- 7658 May, [facility] [place] [facility] [address] [id number] [place] [address]- 5475 Apr, [facility] [address] [id number] [place] [address]- 3837 Apr, [facility] [address] [id number] [place] [address]- 3757 Apr, [facility] [address] [id number] [place] [address]- 9202 Mar, [facility] [address] [id number] [place] [address]- 6463 Mar, [facility] [address] [id number] [place] [address]- 8376 February, [facility] [address] [id number] [place] [address]- 9239 February, [facility] [address] [id number] [place] [address]- 7725 February, [facility] [address] [id number] [place] [address]- 8935 February, [facility] [address] [id number] [place] [address]- 9203 Jan, [facility] [address] [id number] [place] [address]- 0943 Jan, [facility] [address] [id number] [place] [address]- 5730 16 Jan, 2013 [facility] [address] [id number] [place] [address]- 9568 29 Dec, 2012 [facility] [address] [id number] [place] [address]- 2127 Dec, [facility] [address] [id number] [place] [address]- 2540 Dec, [facility] [address] [id number] [place] [address]- 9648 Dec, [facility] [address] [id number] [place] [address]- 3908 Nov, [facility] [place] [facility] [address] [id number] [place] [address]- 6476 Nov, [facility] [place] [facility] [address] [id number] [place] [address]- 4516 Oct, [facility] [place] [facility] [address] [id number] [place] [address]- 2686 Oct, [facility] [place] [facility] [address] [id number] [place] [address]- 3667 Oct, [facility] [place] [facility] [address] [id number] [place] [address]- 3536 Oct, [facility] [place] [facility] [address] [id number] [place] [address]- 0926 Aug, [facility] [place] [facility] [address] [id number] [place] [address]- 6258 Aug, [facility] [place] [facility] [address] [id number] [place] [address]- 5207 Jun, [facility] [place] [facility] [address] [id number] [place] [address]- 3106 May, [facility] [place] [facility] [address] [id number] [place] [address]- 9446 May, [facility] [place] [facility] [address] [id number], [place] [address]- 2576 Apr, [facility] [place] [facility] [address] [id number] [place] [address]- 3526 Apr, [facility] [place] [facility] [address] [id number] [place] [address]- 9216 Apr, [facility] [place] [facility] [address] [id number] [place] [address]- 3096 Mar, [facility] [place] [facility] [address] [id number] [place] [address]- 8881 19 Mar, 2012 [facility] [address] [id number] [place] [address]- 5251 13 Mar, 2012 [facility] [place] [facility] [address] [id number] [place] [address]- 7122 Mar, [facility] [address] [id number] [place] [address]- 6983 Mar, [facility] [place] [facility] [address] [id number] [place] [address]- 6032 February, [facility] [address] [id number] [place] [address]- 9197 February, [facility] [address] [id number] [place] [address]- 8068 February, [facility] [address] [id number] [place] [address]- 9425 February, [facility] [address] [id number] [place] [address]- 7242 February, [facility] [address] [id number] [place] [address]- 9659 February, [facility] [address] [id number] [place] [address]- 8363 February, [facility] [address] [id number] [place] [address]- 9935 25 Jan, 2012 [facility] [place] [facility] [address] [id number] [place] [address]- 1673 18 Jan, 2012 [facility] [place] [facility] [address] [id number] [place] [address]- 1424 17 Jan, 2012 [facility] [place] [facility] [address] [id number] [place] [address]- 0508 13 Jan, 2012 [facility] [place] [facility] [address] [id number] [place] [address] 10 Jan, 2012 [facility] [place] [facility] [address] [id number] [place] [address] 04 Jan, 2012 [facility] [place] [facility] [address] [id number] [place] [address] 30 Dec, 2011 [facility] [place] [facility] [address] [id number] [place] [address] 24 Dec, 2011 [facility] [place] [facility] [address] [id number] [place] [address] 20 Dec, 2011 [facility] [place] [facility] [address] [id number] [place] [address] 13 Dec, 2011 [facility] [place] [facility] [address] [id number] [place] [address] 06 Dec, 2011 [facility] [place] [facility] [address] [id number] [place] [address] Nov, [facility] [place] [facility] [address] [id number] [place] [address] Nov, [facility] [place] [facility] [address] [id number] [place] [address] Nov, [facility] [place] [facility] [address] [id number] [place] [address] 14 Nov, 2011 [facility] [place] [facility] [address] [id number] [place] [address] Nov, [facility] [place] [facility] [address] [id number] [place] [address] 130[address] Nov, [facility] [place] [facility] [address] [id number] [place] [address]071 Oct, [facility] [place] [facility] [address] [id number] [place] [address] Oct, [facility] [place] [facility] [address] [facility] [id number] [place] [address] Oct, [facility] [place] [facility] [address] [id number] [place] [address] 3765 Oct, [facility] [address] [id number] [place] [address] 1001 Oct, [facility] [place] [facility] [address] [id number] [place] [address] Sep, [facility] [place] [facility] [address] [id number] [place] [address] Sep, [facility] [place] [facility] [address] [id number] [place] [address]- [address]227 20 Sep, 2011 [facility] [place] [facility] [address] [id number] [place] [address]- [address]782 14 Sep, 2011 [facility] [place] [facility] [address] [id number] [place] [address] 130[address] 14 Sep, 2011 [facility] [place] [facility] [address] [id number] [place] [address] Sep, [facility] [place] [facility] [address] [id number] [place] [address] 270[address] Sep, [facility] [place] [facility] [address] [id number] [place] [address] Sep, [facility] [place] [facility] [address] [id number] [place] [address]- 8064 05 Sep, 2011 [facility] [place] [facility] [address] [id number] [place] [address] 6637 Aug, [facility] [place] [facility] [address] [id number] [place] [address]82 Aug, [facility] [place] [facility] [address] [id number] [place] [address] 7014 Aug, [facility] [place] [facility] [address] [id number] [place] [address]- [address]255 Aug, [facility] [place] [facility] [address] [facility] [id number] [place] [address]642 Aug, [facility] [place] [facility] [address] [id number] [place] [address]- 6678 Aug, [facility] [place] [facility] [address] [id number] [place] [address]603 Aug, [facility] [place] [facility] [address] [id number] [place] [address] 4534 Aug, [facility] [place] [facility] [address] [id number] [place] [address] 0139 Aug, [facility] [place] [facility] [address] [id number] [place] [address] 8038 Aug, [facility] [place] [facility] [address] [id number] [place] [address] 3[address] Aug, [facility] [place] [facility] [address] [id number] [place] [address]- 8884 Aug, [facility] [place] [facility] [address] [id number] [place] [address] Jul, [facility] [place] [facility] [address] [id number] [place] [address] 8565 Jul, [facility] [place] [facility] [address] [id number] [place] [address]- 9746 24 Jul, 2011 [facility] [place] [facility] [address] [id number] [place] [address] Jul, [facility] [place] [facility] [address] [id number] [place] [address]- 1412 20 Jul, 2011 [facility] [place] [facility] [address] [id number] [place] [address] 4134 Jul, [facility] [place] [facility] [address] [id number] [place] [address]- [address] 18 Jul, 2011 [facility] [place] [facility] [address] [id number] [place] [address]- 9146 11 Jul, 2011 [facility] [place] [facility] [address] [id number] [place] [address]- 49[address] Jul, [facility] [address] [facility] [id number] [address] Jul, [facility] [id number] [address] Nov, [facility] [id number] [place] [address] Aug, [facility] [id number] [place] [address] Aug, [facility] [id number], [place] [address] Aug, [facility] [id number], [place] [address] Aug, [facility] [id number], [place] [address] Jul, IMMUNIZATIONS No Known Immunizations SOCIAL HISTORY Never Assessed REASON FOR VISIT f/u-Raul AMES PLAN OF CARE Activity Details Follow Up 4 Weeks Reason: f/u VITAL SIGNS Height 65.75 in 2017-10-19 Weight 196.4 lbs 2017-10-19 Heart Rate 74 bpm 2017-10-19 Respiratory Rate 20 2017-10-19 BMI 31.94 kg/m2 2017-10-19 Blood pressure systolic 126 mmHg 2017-10-19 Blood pressure diastolic 72 mmHg 2017-10-19 MEDICATIONS Medication Instructions Dosage Frequency Start Date End Date Duration Status Citalopram Hydrobromide 20 mg Orally Once a day 1 tablet daily with 40 mg tablet 24h Active NovoLog Mix 70/30 (70-30) 100 UNIT/ML Subcutaneous 3 times a day 35 units 8h Active Metformin HCl 1000 MG Orally 2 times a day 1 tablet 12h Active Intuniv 1 MG Orally Once a day at bedtime 1 tablet Active Seroquel 300 MG Orally Once a day at bedtime for sleep 1/2 tablet Aug Active Citalopram Hydrobromide 40 mg Orally Once a day 1 tablet with the 20 mg tablet 24h February, Active Invega 6 MG Orally Once a day 2 tablets 24h Active Hydrocodone-Acetaminophen 10-325 mg 1 Tablet by Oral route every 8 hours PRN pain 24 Jul, 2014 Active Cyproheptadine HCl 4 MG Orally once a day 3 tablets 24h Active Ativan 1 MG Orally Once a day as needed 1 tablet Active Insulin Detemir 100 unit/mL (3 mL) Subcutaneous 2 times a day 35 units by Subcutaneous route 1 time per day qHS 12h February, Active Abilify 2 MG Orally Once a day 1 tablet 24h Active Topamax 100 mg Orally Twice a day 1.5 tablet 12h Active RESULTS No Results PROCEDURES Procedure Date Ordered Result Body Site [facility] VISIT ESTABLISHED PATIENT Oct 19, 2017 INSTRUCTIONS MEDICATIONS ADMINISTERED No Known Medications MEDICAL (GENERAL) HISTORY Type Description Date Medical History diabetes Medical History thyroid Surgical History appendix Surgical History gallbladder Surgical History eyes Surgical History hip Surgical History MRI on back and pelvis 06/08 Hospitalization History surgeries Hospitalization History [facility] Suicide attempt by hanging 06/14/2016 Hospitalization History [facility] 01/30/2018-02/10/2008
--- OUTSIDE RECORDS SUMMARY | 2018-08-15 20:44 | XMS REPORT ---
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 26895637 Problem Schizoaffective disorder, depressive type F25.1 Active 93671495 Problem Borderline personality disorder F60.3 Active 34088040 Problem Attention deficit hyperactivity disorder (ADHD), inattentive type, 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 71629402 Problem Schizoaffective disorder, unspecified F25.9 Active 71251998 Problem High risk medication use Z79.899 Active 057221518 Problem Posttraumatic stress disorder F43.10 Active 34459368 Problem Obsessive-compulsive disorders 300.3 Active 322464832 Problem Generalized anxiety disorder 300.02 Active 79343778 Problem Attention deficit disorder of childhood without mention of hyperactivity 314.00 Active 31146296 Problem Bipolar disorder, unspecified 296.80 Active 29454628 Problem Posttraumatic stress disorder 309.81 Active 16729464 Problem Paranoid schizophrenia, unspecified condition 295.30 Active [id number] ALLERGIES No Information ENCOUNTERS Encounter Location Date Diagnosis [facility] [address] 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 and Borderline personality disorder F60.3 [facility] [address], [place] [address] May, [facility] [address], [place] [address] May, Paranoid schizophrenia F20.0 [facility] [id number] [place] [address]10- 0156 May, Paranoid schizophrenia F20.0 ; Posttraumatic stress disorder F43.10 ; Attention deficit hyperactivity disorder (ADHD), inattentive type, 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 and Borderline personality disorder F60.3 [facility] [address], [place] [address] Apr, [facility] [address], [place] [address] Apr, Paranoid schizophrenia F20.0 ; Posttraumatic stress disorder F43.10 ; Attention deficit hyperactivity disorder (ADHD), inattentive type, 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 and Borderline personality disorder F60.3 [facility] [address], [place] [address] Apr, [facility] [address], [place] [address] Apr, Schizoaffective disorder, depressive type F25.1 and Borderline personality disorder F60.3 [facility] [address], [place] [address] 7[address] Apr, Paranoid schizophrenia F20.0 ; Posttraumatic stress disorder F43.10 ; Attention deficit hyperactivity disorder (ADHD), inattentive type, 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 and Borderline personality disorder F60.3 [facility] [id number] [address] 26[address] February, Paranoid schizophrenia F20.0 [facility] [id number], [place] [address] 4782 February, Paranoid schizophrenia F20.0 ; Posttraumatic stress disorder F43.10 ; Attention deficit hyperactivity disorder (ADHD), inattentive type, 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 and Borderline personality disorder F60.3 [facility] [id number], [place] [address] 9926 February, Paranoid schizophrenia F20.0 ; Posttraumatic stress disorder F43.10 ; Attention deficit hyperactivity disorder (ADHD), inattentive type, 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 and Borderline personality disorder F60.3 [facility] [id number], [place] [address] 7717 February, [facility] [id number] [address] 8245 February, Paranoid schizophrenia F20.0 [facility] [id number] [address] 9444 February, Paranoid schizophrenia F20.0 [facility] [address], [place] [address] 6635 February, Paranoid schizophrenia F20.0 ; Posttraumatic stress disorder F43.10 ; Attention deficit hyperactivity disorder (ADHD), inattentive type, 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 and Borderline personality disorder F60.3 [facility] [address], [place] [address] 8085 Jan, Paranoid schizophrenia F20.0 ; Posttraumatic stress disorder F43.10 ; Attention deficit hyperactivity disorder (ADHD), inattentive type, 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 and Borderline personality disorder F60.3 [facility] [address] [place] [address]- 3154 Jan, Paranoid schizophrenia F20.0 [facility] [address], [place] [address] 1151 Jan, Paranoid schizophrenia F20.0 [facility] [id number] [place] [address]- 7621 Jan, Paranoid schizophrenia F20.0 ; Posttraumatic stress disorder F43.10 ; Attention deficit hyperactivity disorder (ADHD), inattentive type, 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 and Borderline personality disorder F60.3 [facility] [address], [place] [address]- 6[address] Dec, [facility] [address], [place] [address]- 4892 Nov, Paranoid schizophrenia F20.0 ; Posttraumatic stress disorder F43.10 ; Attention deficit hyperactivity disorder (ADHD), inattentive type, 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 and Borderline personality disorder F60.3 [facility] [address], [place] [address]- 3[address] Nov, [facility] [address], [place] [address]- 4378 Oct, Paranoid schizophrenia F20.0 [facility] [id number], [place] [address]- 1678 Oct, Paranoid schizophrenia F20.0 ; Posttraumatic stress disorder F43.10 ; Attention deficit hyperactivity disorder (ADHD), inattentive type, 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 ; Borderline personality disorder F60.3 and Other intermediate ( 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 Z79.899 [facility] [address], [place] [address]- 8[address] Oct, [facility] [address], [place] [address]- 7719 Oct, [facility] [address], [place] [address]- 7887 Sep, [facility] [address] [place] [address]- 4771 Sep, Paranoid schizophrenia F20.0 ; Posttraumatic stress disorder F43.10 ; Attention deficit hyperactivity disorder (ADHD), inattentive type, 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 and Borderline personality disorder F60.3 [facility] [address], [place] [address]- 8721 Sep, Paranoid schizophrenia F20.0 [facility] [address], [place] [address]- 4343 Aug, Paranoid schizophrenia F20.0 ; Posttraumatic stress disorder F43.10 ; Attention deficit hyperactivity disorder (ADHD), inattentive type, 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 and Borderline personality disorder F60.3 [facility] [address], [place] [address]- 4461 Aug, Paranoid schizophrenia F20.0 ; Posttraumatic stress disorder F43.10 ; Attention deficit hyperactivity disorder (ADHD), inattentive type, 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 and Borderline personality disorder F60.3 [facility] [address], [place] [address]- 1146 Aug, [facility] [address], [place] [address]- 1675 Jul, Paranoid schizophrenia F20.0 ; Posttraumatic stress disorder F43.10 ; Attention deficit hyperactivity disorder (ADHD), inattentive type, 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 and Borderline personality disorder F60.3 [facility] [id number], [place] [address]- 3590 Jul, Paranoid schizophrenia F20.0 [facility] [id number], [place] [address] Jul, Paranoid schizophrenia F20.0 ; Posttraumatic stress disorder F43.10 ; Attention deficit hyperactivity disorder (ADHD), inattentive type, 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 and Borderline personality disorder F60.3 [facility] [id number], [place] [address]- 5731 Jun, Paranoid schizophrenia F20.0 ; Posttraumatic stress disorder F43.10 ; Attention deficit hyperactivity disorder (ADHD), inattentive type, 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 and Borderline personality disorder F60.3 [facility] [address], [place] [address]- 2725 May, Other intermediate (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 Z79.899 [facility] [address], [place] [address]- 2318 May, [facility] [id number], [place] [address]- 6009 May, [facility] [id number], [place] [address]- 9168 May, Attention deficit hyperactivity disorder (ADHD), inattentive type, 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 [facility] [id number], [place] [address]- 1475 May, [facility] [id number], [place] [address]- 3859 May, Attention deficit hyperactivity disorder (ADHD), inattentive type, 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 [facility] [id number], [place] [address]- 4310 May, Paranoid schizophrenia F20.0 ; Posttraumatic stress disorder F43.10 ; Attention deficit hyperactivity disorder (ADHD), inattentive type, 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 and Other intermediate (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 Z79.899 [facility] [address], [place] [address]- 4573 Apr, Paranoid schizophrenia F20.0 [facility] [address], [place] [address]- 8240 Apr, Paranoid schizophrenia F20.0 ; Posttraumatic stress disorder F43.10 and Attention deficit hyperactivity disorder (ADHD), inattentive type, 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 [facility] [address], [place] [address]- 4780 February, [facility] [address], [place] [address]- 8220 February, Paranoid schizophrenia F20.0 ; Posttraumatic stress disorder F43.10 and Attention deficit hyperactivity disorder (ADHD), inattentive type, 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 [facility] [address], [place] [address]- 3049 February, Paranoid schizophrenia F20.0 ; Posttraumatic stress disorder F43.10 and Attention deficit hyperactivity disorder (ADHD), inattentive type, 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 [facility] [address], [place] [address]- 2717 Jan, Paranoid schizophrenia F20.0 ; Posttraumatic stress disorder F43.10 and Attention deficit hyperactivity disorder (ADHD), inattentive type, 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 [facility] [address] [id number] [address] Dec, Dental examination Z01.20 [facility] [address] [id number] [id number] Nov, Dental examination Z01.20 [facility] [address] [id number] [address] Nov, Dental examination Z01.20 [facility] [address] [id number] [id number] Nov, Dental caries K02.9 [facility] [address], [place] [address]- 5500 13 Nov, 2016 High risk medication use Z79.899 [facility] [address] [place] [address] 95602- 2961 01 Nov, 2016 Paranoid schizophrenia F20.0 ; Posttraumatic stress disorder F43.10 ; Attention deficit hyperactivity disorder (ADHD), inattentive type, 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 and Borderline personality disorder in adult F60.3 [facility] [address] [place] [address] [id number] Oct, Dental caries K02.9 [facility] [id number] [place] [address] 71426- 5703 05 Sep, 2016 Paranoid schizophrenia F20.0 ; Posttraumatic stress disorder F43.10 and Attention deficit hyperactivity disorder (ADHD), inattentive type, 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 [facility] [id number] [place] [address] 57923- 1711 Aug, Paranoid schizophrenia F20.0 ; Posttraumatic stress disorder F43.10 and Attention deficit hyperactivity disorder (ADHD), inattentive type, 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 [facility] [address] [place] [address] 40407 -0885 Aug, Strep throat J02.0 and Cough R05 [facility] [address] [place] [address] 19121- 5381 Aug, [facility] [id number] [place] [address] 90011- 4797 24 Jul, 2016 Paranoid schizophrenia F20.0 ; Posttraumatic stress disorder F43.10 and Attention deficit hyperactivity disorder (ADHD), inattentive type, 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 [id number], [place] [address]- 0959 Jun, [facility] [id number] [place] [address] 39055- 6990 May, Paranoid schizophrenia F20.0 [facility] [address] 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 [id number] [place] [address] 68209- 6719 May, [facility] [id number], [place] [address]- 9471 May, Paranoid schizophrenia F20.0 [facility] [id number], [place] [address]- 4551 May, Schizoaffective disorder, unspecified F25.9 [facility] [address] [facility] [id number], [place] [address]- 3018 May, Schizoaffective disorder, unspecified F25.9 [facility] [address] 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 [id number] [place] [address]- 8933 Mar, Paranoid schizophrenia F20.0 [facility] [address] 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 [id number] [place] [address]- 1106 Mar, [facility] [address] 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 [id number] [place] [address]- 7239 February, [facility] [address] [facility] [id number] [place] [address]- 8746 February, [facility] [address] [facility] [id number] [place] [address]- 2332 February, [facility] [address] [facility] [id number] [place] [address]- 6967 February, [facility] [id number], [place] [address]- 7759 Jan, Paranoid schizophrenia F20.0 [facility] [id number] [place] [address] [id number] Jan, Dental examination Z01.20 [facility] [address] [id number] [id number] Jan, Dental caries K02.9 [facility] [id number] [place] [address] [id number] Jan, Dental examination Z01.20 [facility] [id number] [place] [address] [id number] Dec, Encounter for dental examination Z01.20 [facility] [id number] [place] [address] 26297- 0508 Dec, Paranoid schizophrenia F20.0 [facility] [address] [place] [address] [id number] Dec, Dental examination Z01.20 [facility] [address] [place] [address] 75528- 9210 Dec, [facility] [id number] [place] [address] 45659- 4736 Dec, Paranoid schizophrenia F20.0 ; Posttraumatic stress disorder F43.10 and Attention deficit hyperactivity disorder (ADHD), inattentive type, 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 [facility] [address], [place] [address]- 5389 Nov, Schizoaffective disorder, unspecified F25.9 [facility] [id number], [place] [address]- 3795 Oct, Paranoid schizophrenia F20.0 [facility] [id number] [place] [address] 42985- 6522 Oct, [facility] [address] [place] [address] 80154- 3341 Sep, Paranoid schizophrenia F20.0 ; Posttraumatic stress disorder F43.10 and Attention deficit hyperactivity disorder (ADHD), inattentive type, 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 [facility] [id number] [place] [address] 74393- 8714 Sep, [facility] [id number] [place] [address] 97631- 5567 Sep, Paranoid schizophrenia F20.0 ; Posttraumatic stress disorder F43.10 and Attention deficit hyperactivity disorder (ADHD), inattentive type, 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 [facility] [id number] [place] [address] 80887- 0782 Aug, Paranoid schizophrenia F20.0 [facility] [id number] [place] [address] 45281- 1401 Aug, [facility] [id number] [place] [address] 89517- 3172 Aug, Posttraumatic stress disorder F43.10 ; Paranoid schizophrenia F20.0 and Attention deficit hyperactivity disorder (ADHD), inattentive type, 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 [facility] [id number] [place] [address] 23762- 0120 Jul, Bipolar disorder, unspecified F31.9 [facility] [address] [id number] [address]- 4145 Jul, [facility] [id number] [place] [address] 53642- 6202 Jun, [facility] [id number] [place] [address] 50768- 5300 Jun, Schizoaffective disorder, chronic 295.72 ; Posttraumatic stress disorder 309.81 and Attention deficit disorder of childhood without mention of hyperactivity 314.00 [facility] [address] [place] [address] 96196- 7866 May, [facility] [id number] [place] [address] 72573- 5166 May, [facility] [address] [address] 7817 May, Schizoaffective disorder, chronic 295.72 ; Posttraumatic stress disorder 309.81 ; Attention deficit disorder of childhood without mention of hyperactivity 314.00 and Bipolar disorder, unspecified 296.80 [facility] [address], [place] [address]- 9830 Apr, Schizoaffective disorder, chronic 295.72 [facility] [address], [place] [address]- 2453 Apr, [facility] [address], [place] [address]- 2807 Apr, Schizoaffective disorder, chronic 295.72 ; Posttraumatic stress disorder 309.81 and Attention deficit disorder of childhood without mention of hyperactivity 314.00 [facility] [address], [place] [address]- 5847 Mar, Disorganized schizophrenia, 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 [facility] [address], [place] [address]- 9145 Mar, [facility] [address], [place] [address]- 9199 Mar, [facility] [address], [place] [address]- 3059 Mar, [facility] [address], [place] [address]- 6161 Mar, [facility] [address], [place] [address]- 1871 February, Schizoaffective disorder, chronic 295.72 [facility] [address], [place] [address]- 6909 February, [facility] [address], [place] [address]- 1698 February, Attention deficit disorder of childhood without mention of hyperactivity 314.00 ; Posttraumatic stress disorder 309.81 and Schizoaffective disorder, chronic 295.72 [facility] [place] [facility] [address] [id number] [place] [address]- 4796 29 Jan, 2015 [facility] [place] [facility] [address] [id number] [place] [address]- 3036 14 Jan, 2015 [facility] [place] [facility] [address] [facility] [id number] [place] [address]- 9465 Jan, [facility] [place] [facility] [address] [facility] [id number] [place] [address]- 6839 Dec, [facility] [place] [facility] [address] [facility] [id number] [place] [address]- 4753 Dec, [facility] [place] [facility] [address] [facility] [id number] [place] [address]- 7206 Dec, [facility] [place] [facility] [address] [facility] [id number] [place] [address]- 4731 Dec, [facility] [place] [facility] [address] [facility] [id number], [place] [address] Dec, [facility] [place] [facility] [address] [facility] [id number] [place] [address] Dec, [facility] [place] [facility] [address] [facility] [id number] [place] [address] Dec, [facility] [place] [facility] [address] [facility] [id number], [place] [address] Dec, [facility] [place] [facility] [address] [facility] [id number], [place] [address] Nov, [facility] [place] [facility] [address] [facility] [id number] [place] [address] Nov, [facility] [place] [facility] [address] [facility] [id number], [place] [address] Nov, [facility] [place] [facility] [address] [facility] [id number] [place] [address] Nov, [facility] [place] [facility] [address] [facility] [id number] [place] [address] Nov, 2014 [facility] [place] [facility] [address] [id number] [place] [address] Nov, 2014 [facility] [place] [facility] [address] [id number] [place] [address] Nov, 2014 [facility] [place] [facility] [address] [id number] [place] [address] Nov, 2014 [facility] [place] [facility] [address] [address] [id number] [place] [address] Nov, [facility] [place] [facility] [address] [id number] [place] [address] 2768 Nov, [facility] [place] [facility] [address] [id number] [place] [address] 5848 Oct, [facility] [place] [facility] [address] [id number] [place] [address] 7[address] Oct, [facility] [place] [facility] [address] [id number] [place] [address] 9843 Oct, [facility] [place] [facility] [address] [id number] [place] [address] 8362 Oct, [facility] [place] [facility] [address] [id number] [place] [address]- 7681 Oct, [facility] [place] [facility] [address] [id number] [place] [address] 0247 Oct, [facility] [place] [facility] [address] [id number] [place] [address]- 2773 Oct, [facility] [place] [facility] [address] [id number] [place] [address]- 3656 Sep, [facility] [place] [facility] [address] [id number] [place] [address] 4456 Sep, [facility] [place] [facility] [address] [id number] [place] [address]- 4781 15 Sep, 2014 [facility] [place] [facility] [address] [id number] [place] [address]- 6868 15 Sep, 2014 [facility] [place] [facility] [address] [id number] [place] [address]- 4319 Aug, [facility] [place] [facility] [address] [id number] [place] [address]- 2442 Aug, [facility] [place] [facility] [address] [id number] [place] [address]- 5594 Aug, [facility] [place] [facility] [address] [id number] [place] [address]- 7722 Aug, [facility] [place] [facility] [address] [id number] [place] [address]- 0499 Aug, [facility] [place] [facility] [address] [id number] [place] [address] 8157 Aug, [facility] [place] [facility] [address] [id number] [place] [address]- 2900 Jul, [facility] [place] [facility] [address] [id number] [place] [address]- 4505 Jul, [facility] [place] [facility] [address] [id number] [place] [address]- 3260 Jul, [facility] [place] [facility] [address] [id number], [place] [address]- 2469 24 Jul, 2014 [facility] [place] [facility] [address] [id number], [place] [address]- 1241 Jul, [facility] [place] [facility] [address] [id number] [place] [address]- 9950 Jul, [facility] [place] [facility] [address] [id number], [place] [address]- 1465 Jun, [facility] [place] [facility] [address] [id number] [place] [address]- 4329 Jun, [facility] [place] [facility] [address] [id number] [place] [address]- 0755 26 Jun, 2013 [facility] [place] [facility] [address] [id number] [place] [address] 2546 26 Jun, 2013 [facility] [place] [facility] [address] [id number] [place] [address] 2546 Jun, 2013 [facility] [place] [facility] [address] [id number] [place] [address] 2546 26 Jun, 2013 [facility] [place] [facility] [address] [id number] [place] [address] 2546 16 Jun, 2013 [facility] [place] [facility] [address] [id number] [place] [address]- 2256 16 Jun, 2013 [facility] [place] [facility] [address] [id number] [place] [address]- 0886 16 Jun, 2013 [facility] [place] [facility] [address] [id number] [place] [address]- 9980 16 Jun, 2013 [facility] [place] [facility] [address] [id number] [place] [address]- 1765 Jun, 2013 [facility] [place] [facility] [address] [id number] [place] [address]- 6275 May, [facility] [place] [facility] [address] [id number] [place] [address]- 1433 May, [facility] [place] [facility] [address] [id number] [place] [address]- 9944 May, [facility] [place] [facility] [address] [id number] [place] [address]- 2547 May, [facility] [place] [facility] [address] [id number] [place] [address]- 6166 May, [facility] [place] [facility] [address] [id number] [place] [address]- 8918 May, [facility] [place] [facility] [address] [id number] [place] [address]- 4955 May, [facility] [place] [facility] [address] [id number] [place] [address]- 2342 May, [facility] [place] [facility] [address] [id number] [place] [address]- 7285 May, [facility] [place] [facility] [address] [id number] [place] [address]- 9107 May, [facility] [place] [facility] [address] [id number] [place] [address]- 5674 Apr, [facility] [place] [facility] [address] [id number] [place] [address]- 6474 Apr, [facility] [place] [facility] [address] [id number] [place] [address]- 4212 Apr, [facility] [place] [facility] [address] [id number] [place] [address]- 7839 Apr, [facility] [place] [facility] [address] [id number] [place] [address]- 8620 Apr, [facility] [place] [facility] [address] [id number] [place] [address]- 4271 Apr, [facility] [place] [facility] [address] [id number] [place] [address]- 2467 Apr, [facility] [place] [facility] [address] [id number] [place] [address]- 4336 Apr, [facility] [place] [facility] [address] [id number] [place] [address]- 9308 Apr, [facility] [place] [facility] [address] [id number] [place] [address]- 6383 Apr, [facility] [place] [facility] [address] [id number] [place] [address]- 0298 Mar, [facility] [place] [facility] [address] [id number] [place] [address]- 4342 Mar, [facility] [place] [facility] [address] [id number] [place] [address]- 4087 Mar, [facility] [place] [facility] [address] [id number] [place] [address]- 5805 24 Mar, 2014 [facility] [place] [facility] [address] [id number] [place] [address]- 5976 Mar, [facility] [place] [facility] [address] [id number] [place] [address]- 3794 18 Mar, 2014 [facility] [place] [facility] [address] [id number] [place] [address]- 5156 18 Mar, 2014 [facility] [place] [facility] [address] [id number] [place] [address]- 7995 Mar, [facility] [place] [facility] [address] [id number] [place] [address]- 1355 16 Mar, 2014 [facility] [place] [facility] [address] [id number] [place] [address]- 4396 Mar, [facility] [place] [facility] [address] [id number] [place] [address]- 7098 Mar, [facility] [place] [facility] [address] [id number] [place] [address]- 6838 Mar, [facility] [place] [facility] [address] [id number] [place] [address]- 4780 Mar, [facility] [place] [facility] [address] [id number] [place] [address]- 1729 Mar, [facility] [place] [facility] [address] [id number] [place] [address]- 4540 Mar, [facility] [place] [facility] [address] [id number] [place] [address]- 7335 Mar, [facility] [place] [facility] [address] [id number] [place] [address]- 8671 Mar, [facility] [place] [facility] [address] [id number] [place] [address]- 9136 Mar, [facility] [place] [facility] [address] [id number] [place] [address]- 2444 Mar, [facility] [address] [id number] [place] [address]- 0821 Mar, [facility] [address] [id number] [place] [address]- 0940 February, [facility] [address] [id number] [place] [address]- 9213 February, [facility] [address] [id number] [place] [address]- 3758 February, [facility] [address] [id number] [place] [address]- 7267 February, [facility] [address] [id number] [place] [address]- 7921 February, [facility] [address] [id number] [place] [address]- 5095 February, [facility] [address] [id number] [place] [address]- 6068 February, [facility] [address] [id number] [place] [address]- 2888 February, [facility] [address] [id number] [place] [address]- 7343 February, [facility] [address] [id number] [place] [address]- 0249 February, [facility] [address] [id number] [place] [address]- 8217 February, [facility] [place] [facility] [address] [id number] [place] [address]- 1258 February, [facility] [place] [facility] [address] [id number] [place] [address]- 0003 February, [facility] [address] [id number] [place] [address] February, [facility] [place] [facility] [address] [id number] [place] [address]- 1634 February, [facility] [place] [facility] [address] [id number] [place] [address]- 6492 February, [facility] [place] [facility] [address] [id number] [place] [address]- 1350 February, [facility] [place] [facility] [address] [id number] [place] [address]- 6796 February, [facility] [place] [facility] [address] [id number] [place] [address]- 5665 February, [facility] [place] [facility] [address] [id number] [place] [address]- 2939 February, [facility] [place] [facility] [address] [id number] [place] [address]- 3684 February, [facility] [place] [facility] [address] [id number] [place] [address]- 4378 Jan, [facility] [place] [facility] [address] [id number] [place] [address]- 8493 Jan, [facility] [place] [facility] [address] [id number] [place] [address]- 4475 Jan, [facility] [place] [facility] [address] [id number] [place] [address]- 3675 Jan, [facility] [place] [facility] [address] [id number] [place] [address]- 4711 Jan, [facility] [place] [facility] [address] [id number] [place] [address]- 5992 Jan, [facility] [place] [facility] [address] [id number] [place] [address]- 4051 Jan, [facility] [place] [facility] [address] [id number] [place] [address]- 4314 Jan, [facility] [place] [facility] [address] [id number], [place] [address]- 2481 21 Dec, 2013 [facility] [place] [facility] [address] [id number] [place] [address]- 2045 20 Dec, 2013 [facility] [place] [facility] [address] [id number] [place] [address]- 9602 20 Dec, 2013 [facility] [place] [facility] [address] [facility] [id number] [place] [address]- 6443 19 Dec, 2013 [facility] [place] [facility] [address] [id number] [place] [address]- 7646 19 Dec, 2013 [facility] [place] [facility] [address] [id number] [place] [address]- 1764 15 Dec, 2013 [facility] [place] [facility] [address] [facility] [id number] [place] [address]- 4250 15 Dec, 2013 [facility] [place] [facility] [address] [facility] [id number] [place] [address]- 8584 11 Dec, 2013 [facility] [place] [facility] [address] [facility] [id number] [place] [address]- 2422 10 Dec, 2013 [facility] [place] [facility] [address] [facility] [id number] [place] [address]- 4220 10 Dec, 2013 [facility] [place] [facility] [address] [facility] [id number] [place] [address]- 2589 18 Nov, 2013 [facility] [place] [facility] [address] [facility] [id number] [place] [address]- 8769 17 Nov, 2013 [facility] [place] [facility] [address] [facility] [id number] [place] [address]- 6983 17 Nov, 2013 [facility] [place] [facility] [address] [id number] [place] [address]- 3830 05 Nov, 2013 [facility] [place] [facility] [address] [facility] [id number] [place] [address]- 8071 05 Nov, 2013 [facility] [place] [facility] [address] [facility] [id number] [place] [address]- 3287 Oct, [facility] [place] [facility] [address] [id number] [place] [address]- 0188 Oct, [facility] [address] [id number] [place] [address]- 0431 Oct, [facility] [place] [facility] [address] [id number] [place] [address]- 4168 Sep, [facility] [place] [facility] [address] [id number] [place] [address]- 3665 Sep, [facility] [address] [id number] [place] [address]- 5625 Sep, [facility] [place] [facility] [address] [id number] [place] [address]- 2403 Sep, [facility] [address] [id number] [place] [address]- 4532 Aug, [facility] [address] [id number] [place] [address]- 9581 Aug, [facility] [address] [id number] [place] [address]- 7511 Jul, [facility] [place] [facility] [address] [id number] [place] [address]- 9965 Jul, [facility] [place] [facility] [address] [id number] [place] [address]- 7464 Jul, [facility] [place] [facility] [address] [id number], [place] [address]- 2780 Jul, [facility] [place] [facility] [address] [id number] [place] [address]- 5518 Jul, [facility] [place] [facility] [address] [id number] [place] [address]- 3506 Jun, [facility] [place] [facility] [address] [id number] [place] [address]- 2421 Jun, [facility] [place] [facility] [address] [id number], [place] [address]- 7320 19 Jun, 2013 [facility] [address] [id number] [place] [address]- 4274 18 Jun, 2013 [facility] [place] [facility] [address] [id number] [place] [address]- 4016 16 Jun, 2013 [facility] [place] [facility] [address] [id number] [place] [address]- 1896 12 Jun, 2013 [facility] [place] [facility] [address] [id number] [place] [address]- 8657 11 Jun, 2013 [facility] [place] [facility] [address] [id number] [place] [address]- 3989 May, [facility] [place] [facility] [address] [id number] [place] [address]- 3297 May, [facility] [place] [facility] [address] [id number] [place] [address]- 5722 Apr, [facility] [place] [facility] [address] [id number] [place] [address]- 6835 Apr, [facility] [place] [facility] [address] [id number] [place] [address]- 2633 Apr, [facility] [place] [facility] [address] [id number] [place] [address]- 5208 Mar, [facility] [place] [facility] [address] [id number] [place] [address]- 9283 Mar, [facility] [place] [facility] [address] [id number] [place] [address]- 0125 February, [facility] [place] [facility] [address] [id number] [place] [address]- 0157 February, [facility] [place] [facility] [address] [id number] [place] 5316 February, [facility] [place] [facility] [address] [id number] [place] [address]- 0581 February, [facility] [place] [facility] [address] [id number] [place] [address]- 5787 19 Jan, 2013 [facility] [address] [id number] [place] [address]- 3451 17 Jan, 2013 [facility] [address] [id number] [place] [address]- 8811 16 Jan, 2013 [facility] [address] [id number] [place] [address]- 7507 29 Dec, 2012 [facility] [address] [id number] [place] [address]- 2423 26 Dec, 2012 [facility] [address] [id number] [place] [address]- 8067 Dec, [facility] [address] [id number] [place] [address]- 0545 08 Dec, 2012 [facility] [address] [id number] [place] [address]- 6722 20 Nov, 2012 [facility] [address] [id number] [place] [address]- 5292 Nov, [facility] [address] [id number] [place] [address]- 6687 Oct, [facility] [address] [id number] [place] [address]- 5387 Oct, [facility] [address] [id number] [place] [address]- 8295 24 Oct, 2012 [facility] [address] [id number] [place] [address]- 0809 Oct, [facility] [place] [facility] [address] [id number] [place] [address]- 5395 Aug, [facility] [place] [facility] [address] [id number] [place] [address]- 5126 Aug, [facility] [address] [id number] [place] [address]- 5846 Jun, [facility] [place] [facility] [address] [id number] [place] [address]- 9980 May, [facility] [place] [facility] [address] [id number] [place] [address]- 4194 May, [facility] [place] [facility] [address] [id number] [place] [address]- 6304 Apr, [facility] [place] [facility] [address] [id number] [place] [address]- 4091 Apr, [facility] [place] [facility] [address] [id number] [place] [address]- 0233 Apr, [facility] [place] [facility] [address] [id number] [place] [address]- 8105 Mar, [facility] [place] [facility] [address] [id number] [place] [address]- 8772 Mar, [facility] [place] [facility] [address] [id number] [place] [address]- 0798 Mar, [facility] [place] [facility] [address] [id number] [place] [address] Mar, [facility] [place] [facility] [address] [id number] [place] [address] Mar, [facility] [place] [facility] [address] [id number] [place] [address] February, [facility] [place] [facility] [address] [id number] [place] [address] February, [facility] [place] [facility] [address] [id number] [place] [address] February, [facility] [place] [facility] [address] [id number] [place] [address] February, [facility] [place] [facility] [address] [id number] [place] [address] February, [facility] [place] [facility] [address] [id number] [place] [address]283 February, [facility] [address] [id number] [place] [address] February, [facility] [address] [id number] [place] [address] Jan, [facility] [address] [id number] [place] [address] 18 Jan, 2012 [facility] [place] [facility] [address] [id number] [place] [address] 94[address] 17 Jan, 2012 [facility] [address] [id number] [place] [address] 1768 Jan, [facility] [address] [id number] [place] [address] 4628 Jan, [facility] [address] [id number] [place] [address] 04 Jan, 2012 [facility] [address] [id number] [place] [address] 30 Dec, 2011 [facility] [address] [id number] [place] [address] 24 Dec, 2011 [facility] [address] [id number] [place] [address] 7669 Dec, [facility] [place] [facility] [address] [id number] [place] [address]- 1461 Dec, [facility] [place] [facility] [address] [id number] [place] [address] Dec, [facility] [place] [facility] [address] [id number] [place] [address]45 Nov, [facility] [place] [facility] [address] [id number] [place] [address] Nov, [facility] [place] [facility] [address] [id number] [place] [address] Nov, [facility] [place] [facility] [address] [id number] [place] [address] 14 Nov, 2011 [facility] [place] [facility] [address] [id number] [place] [address]356 Nov, [facility] [place] [facility] [address] [id number] [place] [address] Nov, [facility] [place] [facility] [address] [id number] [place] [address] 9947 Oct, [facility] [address] [id number] [place] [address] 5869 Oct, [facility] [place] [facility] [address] [id number] [place] [address] 6[address] Oct, [facility] [address] [id number] [place] [address] 7366 Oct, [facility] [address] [id number] [place] [address]350 Oct, [facility] [address] [id number] [place] [address] Sep, [facility] [place] [facility] [address] [id number] [place] [address]- [address]180 Sep, [facility] [place] [facility] [address] [id number] [place] [address] 59[address] Sep, [facility] [place] [facility] [address] [id number] [place] [address] 14 Sep, 2011 [facility] [place] [facility] [address] [id number] [place] [address] 2546 14 Sep, 2011 [facility] [place] [facility] [address] [id number] [place] [address]- [address]46 13 Sep, 2011 [facility] [place] [facility] [address] [id number] [place] [address]- 0427 12 Sep, 2011 [facility] [place] [facility] [address] [id number], [place] [address] Sep, [facility] [place] [facility] [address] [id number] [place] [address]279 Sep, [facility] [place] [facility] [address] [id number] [place] [address] Aug, [facility] [place] [facility] [address] [id number] [place] [address]- 9582 Aug, [facility] [place] [facility] [address] [id number] [place] [address] 4833 Aug, [facility] [place] [facility] [address] [id number] [place] [address], [place] [address]- 2446 Aug, [facility] [place] [facility] [address] [id number] [place] [address]- 68[address] Aug, [facility] [place] [facility] [address] [id number], [place] [address]41 Aug, [facility] [place] [facility] [address] [id number], [place] [address]- [address] Aug, [facility] [place] [facility] [address] [id number] [place] [address]- 6029 Aug, [facility] [place] [facility] [address] [facility] [id number] [place] [address]- [address]855 Aug, [facility] [place] [facility] [address] [id number] [place] [address]- 1566 Aug, [facility] [place] [facility] [address] [id number], [place] [address]- 9517 Aug, [facility] [place] [facility] [address] [id number], [place] [address] 9957 Aug, [facility] [place] [facility] [address] [id number], [place] [address] Jul, [facility] [place] [facility] [address] [id number], [place] [address] Jul, [facility] [place] [facility] [address] [facility] [id number], [place] [address] Jul, [facility] [address] [facility] [id number], [place] [address]646 Jul, [facility] [address] [facility] [id number], [place] [address]41 Jul, [facility] [address] [facility] [id number], [place] [address]100 Jul, [facility] [address] [facility] [id number], [place] [address] 7760 Jul, [facility] [address] [facility] [id number] [place] [address]- [address] Jul, [facility] [id number] [place] [address]- 8282 Jul, [facility] [id number] [place] [address]- [address]379 Jul, [facility] [id number] [address]- 7837 Nov, [facility] [id number] [place] [address]- 5828 Aug, [facility] [id number], [place] [address]- 4014 Aug, [facility] [id number], [place] [address]- [address]908 Aug, [facility] [id number], [place] [address]- 5717 Aug, [facility] [id number], [place] [address]77 Jul, IMMUNIZATIONS No Known Immunizations SOCIAL HISTORY Never Assessed REASON FOR VISIT Medication refill request PLAN OF CARE VITAL SIGNS MEDICATIONS [...] by hanging 06/14/2016 Hospitalization History [facility] 01/30/2018-02/10/2008 Hospitalization History [facility] 05/04/18-05/09/18
--- OUTSIDE RECORDS SUMMARY | 2018-08-15 20:46 | XMS REPORT ---
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 14710033 Problem Schizoaffective disorder, depressive type F25.1 Active 41809394 Problem Borderline personality disorder F60.3 Active 27416226 Problem Attention deficit hyperactivity disorder (ADHD), inattentive type, 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 36886697 Problem Schizoaffective disorder, unspecified F25.9 Active 87564306 Problem High risk medication use Z79.899 Active 291947716 Problem Posttraumatic stress disorder F43.10 Active 32913577 Problem Obsessive-compulsive disorders 300.3 Active 660634769 Problem Generalized anxiety disorder 300.02 Active 49762567 Problem Attention deficit disorder of childhood without mention of hyperactivity 314.00 Active 63748309 Problem Bipolar disorder, unspecified 296.80 Active 03758984 Problem Posttraumatic stress disorder 309.81 Active 57724766 Problem Paranoid schizophrenia, unspecified condition 295.30 Active 08786004 ALLERGIES Substance Reaction Event Type Date Status Deadwood agitation/homicidal Drug Allergy May, Active Latuda agitation [...] May, Active ENCOUNTERS Encounter Location Date Diagnosis [facility] [address] [address] Jul, [facility] [id number] [place] [address] May, Paranoid schizophrenia F20.0 ; Posttraumatic stress disorder F43.10 ; Attention deficit hyperactivity disorder (ADHD), inattentive type, 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 and Borderline personality disorder F60.3 [facility] [address], [place] [address] May, [facility] [address] [address] May, Paranoid schizophrenia F20.0 [facility] [address], [place] [address] May, Paranoid schizophrenia F20.0 ; Posttraumatic stress disorder F43.10 ; Attention deficit hyperactivity disorder (ADHD), inattentive type, 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 and Borderline personality disorder F60.3 [facility] [address] [address] Apr, [facility] [address] [address] Apr, Paranoid schizophrenia F20.0 ; Posttraumatic stress disorder F43.10 ; Attention deficit hyperactivity disorder (ADHD), inattentive type, 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3 [facility] [address], [place] [address] Apr, [facility] [address] [address] 85[address] Apr, Paranoid schizophrenia F20.0 ; Posttraumatic stress disorder F43.10 ; Attention deficit hyperactivity disorder (ADHD), inattentive type, 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 and Borderline personality disorder F60.3 [facility] [address] [address] Apr, [facility] [address] [address] Mar, Paranoid schizophrenia F20.0 [facility] [address] [address] Mar, [facility] [id number] [address] Mar, Paranoid schizophrenia F20.0 ; Posttraumatic stress disorder F43.10 ; Attention deficit hyperactivity disorder (ADHD), inattentive type, 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 and Borderline personality disorder F60.3 [facility] [address] [address] February, Paranoid schizophrenia F20.0 [facility] [id number] [address] February, Paranoid schizophrenia F20.0 ; Posttraumatic stress disorder F43.10 ; Attention deficit hyperactivity disorder (ADHD), inattentive type, 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 and Borderline personality disorder F60.3 [facility] [address] [address] February, Paranoid schizophrenia F20.0 ; Posttraumatic stress disorder F43.10 ; Attention deficit hyperactivity disorder (ADHD), inattentive type, 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 and Borderline personality disorder F60.3 [facility] [address], [place] [address] February, [facility] [address] [address] 7440 February, Paranoid schizophrenia F20.0 [facility] [address] [address] 8407 February, Paranoid schizophrenia F20.0 [facility] [address] [address] 7915 February, Paranoid schizophrenia F20.0 ; Posttraumatic stress disorder F43.10 ; Attention deficit hyperactivity disorder (ADHD), inattentive type, 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 and Borderline personality disorder F60.3 [facility] [address], [place] [address] Jan, Paranoid schizophrenia F20.0 ; Posttraumatic stress disorder F43.10 ; Attention deficit hyperactivity disorder (ADHD), inattentive type, 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 and Borderline personality disorder F60.3 [facility] [address], [place] [address] 14[address] Jan, Paranoid schizophrenia F20.0 [facility] [address] [address] 36[address] Jan, Paranoid schizophrenia F20.0 [facility] [address], [place] [address] 5[address] Jan, Paranoid schizophrenia F20.0 ; Posttraumatic stress disorder F43.10 ; Attention deficit hyperactivity disorder (ADHD), inattentive type, 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 and Borderline personality disorder F60.3 [facility] [address] [address] Dec, [facility] [address] [address] Nov, Paranoid schizophrenia F20.0 ; Posttraumatic stress disorder F43.10 ; Attention deficit hyperactivity disorder (ADHD), inattentive type, 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 and Borderline personality disorder F60.3 [facility] [address] [address]- 4[address] Nov, [facility] [address] [address]- 4[address] Oct, Paranoid schizophrenia F20.0 [facility] [address], [place] [address]- 7[address] Oct, Paranoid schizophrenia F20.0 ; Posttraumatic stress disorder F43.10 ; Attention deficit hyperactivity disorder (ADHD), inattentive type, 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 ; Borderline personality disorder F60.3 and Other correction ( 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 Z79.899 [facility] [id number] [place] [address]- 9061 Oct, [facility] [id number] [place] [address]- 4724 Oct, [facility] [address] [address]- 95[address] Sep, [facility] [address] [address]- 7096 Sep, Paranoid schizophrenia F20.0 ; Posttraumatic stress disorder F43.10 ; Attention deficit hyperactivity disorder (ADHD), inattentive type, 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 and Borderline personality disorder F60.3 [facility] [address] [address]- [address] Sep, Paranoid schizophrenia F20.0 [facility] [address], [place] [address]- 4387 Aug, Paranoid schizophrenia F20.0 ; Posttraumatic stress disorder F43.10 ; Attention deficit hyperactivity disorder (ADHD), inattentive type, 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 and Borderline personality disorder F60.3 [facility] [address] [address] 0106 Aug, Paranoid schizophrenia F20.0 ; Posttraumatic stress disorder F43.10 ; Attention deficit hyperactivity disorder (ADHD), inattentive type, 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 and Borderline personality disorder F60.3 [facility] [address] [address]- [address] Aug, [facility] [address] [address]- 0[address] Jul, Paranoid schizophrenia F20.0 ; Posttraumatic stress disorder F43.10 ; Attention deficit hyperactivity disorder (ADHD), inattentive type, 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 and Borderline personality disorder F60.3 [facility] [address], [place] [address]- 7[address] Jul, Paranoid schizophrenia F20.0 [facility] [address] [address]- 0412 Jul, Paranoid schizophrenia F20.0 ; Posttraumatic stress disorder F43.10 ; Attention deficit hyperactivity disorder (ADHD), inattentive type, 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 and Borderline personality disorder F60.3 [facility] [address] [address]- 6909 Jun, Paranoid schizophrenia F20.0 ; Posttraumatic stress disorder F43.10 ; Attention deficit hyperactivity disorder (ADHD), inattentive type, 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 and Borderline personality disorder F60.3 [facility] [address] [address]- 2575 May, Other correction (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 Z79.899 [facility] [address] [address]- 7544 May, [facility] [address] [address]- 7078 May, [facility] [address] [address]- 5915 May, Attention deficit hyperactivity disorder (ADHD), inattentive type, 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 [facility] [address] [address]- 6081 May, [facility] [address] [address]- 4485 May, Attention deficit hyperactivity disorder (ADHD), inattentive type, 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 [facility] [address] [address]- 5229 May, Paranoid schizophrenia F20.0 ; Posttraumatic stress disorder F43.10 ; Attention deficit hyperactivity disorder (ADHD), inattentive type, 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 and Other correction (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 Z79.899 [facility] [address] [address]- 5743 Apr, Paranoid schizophrenia F20.0 [facility] [address] [address]- 9796 Apr, Paranoid schizophrenia F20.0 ; Posttraumatic stress disorder F43.10 and Attention deficit hyperactivity disorder (ADHD), inattentive type, 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 [facility] [address] [address]- 5542 February, [facility] [address] [address]- 7738 February, Paranoid schizophrenia F20.0 ; Posttraumatic stress disorder F43.10 and Attention deficit hyperactivity disorder (ADHD), inattentive type, 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 [facility] [id number] [address]- 3243 February, Paranoid schizophrenia F20.0 ; Posttraumatic stress disorder F43.10 and Attention deficit hyperactivity disorder (ADHD), inattentive type, 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 [facility] [id number] [address]- 8732 Jan, Paranoid schizophrenia F20.0 ; Posttraumatic stress disorder F43.10 and Attention deficit hyperactivity disorder (ADHD), inattentive type, 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 [facility] [address] [id number] [id number] Dec, Dental examination Z01.20 [facility] [address] [id number] [id number] Nov, Dental examination Z01.20 [facility] [id number] [id number] 23 Nov, 2016 Dental examination Z01.20 [facility] [id number] [address] 14 Nov, 2016 Dental caries K02.9 [facility] [address], [place] [address]- [address] 13 Nov, 2016 High risk medication use Z79.899 [facility] [address] [place] [address]- 6816 Nov, Paranoid schizophrenia F20.0 ; Posttraumatic stress disorder F43.10 ; Attention deficit hyperactivity disorder (ADHD), inattentive type, 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 and Borderline personality disorder in adult F60.3 [facility] [address] [id number] Oct, Dental caries K02.9 [facility] [address] [place] [address]- 9339 Sep, Paranoid schizophrenia F20.0 ; Posttraumatic stress disorder F43.10 and Attention deficit hyperactivity disorder (ADHD), inattentive type, 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 [facility] [address] [address]- [address] 16 Aug, 2016 Paranoid schizophrenia F20.0 ; Posttraumatic stress disorder F43.10 and Attention deficit hyperactivity disorder (ADHD), inattentive type, 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 [facility] [address] [address] Aug, Strep throat J02.0 and Cough R05 [facility] [address] [address]- 0143 Aug, [facility] [address] [address]- 0467 24 Jul, 2016 Paranoid schizophrenia F20.0 ; Posttraumatic stress disorder F43.10 and Attention deficit hyperactivity disorder (ADHD), inattentive type, 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 [facility] [address] [facility] [id number] [address]- 7693 Jul, [facility] [address] [facility] [id number] [place] [address] 37461- 3176 Jun, Paranoid schizophrenia F20.0 ; Posttraumatic stress disorder F43.10 and Attention deficit hyperactivity disorder (ADHD), inattentive type, 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 [facility] [address] [facility] [id number] [id number] Jun, Dental examination Z01.20 [facility] [address] [facility] [id number] [address]- [address]01 Jun, [facility] [id number] [place] [address] 01305- 3031 May, Paranoid schizophrenia F20.0 [facility] [id number] [place] [address] 05223- 0496 May, Paranoid schizophrenia F20.0 ; Posttraumatic stress disorder F43.10 and Attention deficit hyperactivity disorder (ADHD), inattentive type, 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 [facility] [address] [facility] [id number], [place] [address]- 6910 May, [facility] [address] [facility] [id number] [address]- 1024 May, Paranoid schizophrenia F20.0 [facility] [address] [facility] [id number], [place] [address]- 5314 May, [facility] [address] [facility] [id number], [place] [address]- 0508 May, Paranoid schizophrenia F20.0 [facility] [address] [facility] [id number], [place] [address]- 9702 May, Schizoaffective disorder, unspecified F25.9 [facility] [address] [facility] [id number] [address]- 2516 May, Schizoaffective disorder, unspecified F25.9 [facility] [address] [facility] [id number] [address]- 2569 May, [facility] [address] [facility] [id number] [address]- 0827 May, Paranoid schizophrenia F20.0 [facility] [id number] [address]- 3204 May, Paranoid schizophrenia F20.0 ; Posttraumatic stress disorder F43.10 and Attention deficit hyperactivity disorder (ADHD), inattentive type, 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 [facility] [address] [facility] [id number], [place] [address]- 8339 Mar, [facility] [id number] [address]- 7913 Mar, Paranoid schizophrenia F20.0 ; Posttraumatic stress disorder F43.10 and Attention deficit hyperactivity disorder (ADHD), inattentive type, 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 [facility] [id number] [address]- 2016 Mar, Paranoid schizophrenia F20.0 [facility] [id number] [place] [address]- 8253 Mar, Paranoid schizophrenia F20.0 ; Attention deficit hyperactivity disorder (ADHD), inattentive type, 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 and Posttraumatic stress disorder F43.10 [facility] [id number] [address]- 7953 Mar, [facility] [address] [facility] [id number], [place] [address]- 5263 Mar, Paranoid schizophrenia F20.0 ; Posttraumatic stress disorder F43.10 and Attention deficit hyperactivity disorder (ADHD), inattentive type, 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 [facility] [address] [facility] [id number] [address]- 4148 February, [facility] [id number] [address]- 2493 February, [facility] [address], [place] [address]- 2370 February, [facility] [id number] [place] [address] 99869- 5930 February, [facility] [id number] [place] [address] 12525- 7506 Jan, Paranoid schizophrenia F20.0 [facility] [id number] [place] [id number] Jan, Dental examination Z01.20 [facility] [id number] [place] [address] [id number] Jan, Dental caries K02.9 [facility] [id number] [place] [address] [id number] Jan, Dental examination Z01.20 [facility] [id number] [place] [address] [id number] Dec, Encounter for dental examination Z01.20 [facility] [id number] [place] [address] 93196- 4778 Dec, Paranoid schizophrenia F20.0 [facility] [id number] [place] [address] [id number] Dec, Dental examination Z01.20 [facility] [id number] [place] [address] 60834- 1229 Dec, [facility] [id number] [place] [address] 47525- 1153 Dec, Paranoid schizophrenia F20.0 ; Posttraumatic stress disorder F43.10 and Attention deficit hyperactivity disorder (ADHD), inattentive type, 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 [facility] [address] [address]- 6755 Nov, Schizoaffective disorder, unspecified F25.9 [facility] [address], [place] [address]- 7189 Oct, Paranoid schizophrenia F20.0 [facility] [address] [address]- 7923 Oct, [facility] [address] 2906 Sep, Paranoid schizophrenia F20.0 ; Posttraumatic stress disorder F43.10 and Attention deficit hyperactivity disorder (ADHD), inattentive type, 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 [facility] [address] [address]- 9453 Sep, [facility] [id number] [address]- 1756 Sep, Paranoid schizophrenia F20.0 ; Posttraumatic stress disorder F43.10 and Attention deficit hyperactivity disorder (ADHD), inattentive type, 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 [facility] [address] [address]- 2317 Aug, Paranoid schizophrenia F20.0 [facility] [address] [address]- 9555 Aug, [facility] [address] [address]- 2455 Aug, Posttraumatic stress disorder F43.10 ; Paranoid schizophrenia F20.0 and Attention deficit hyperactivity disorder (ADHD), inattentive type, 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 [facility] [address] [address]- 6906 Jul, Bipolar disorder, unspecified F31.9 [facility] [address] [address]- 7782 Jul, [facility] [address] [address]- 8702 Jun, [facility] [address] [address]- 5487 Jun, Schizoaffective disorder, chronic 295.72 ; Posttraumatic stress disorder 309.81 and Attention deficit disorder of childhood without mention of hyperactivity 314.00 [facility] [address] [address]- 3899 May, [facility] [address] [address]- 0361 May, [facility] [address] [address]- 3833 May, Schizoaffective disorder, chronic 295.72 ; Posttraumatic stress disorder 309.81 ; Attention deficit disorder of childhood without mention of hyperactivity 314.00 and Bipolar disorder, unspecified 296.80 [facility] [address] [address]- 4506 Apr, Schizoaffective disorder, chronic 295.72 [facility] [address] [address]- 2478 Apr, [facility] [id number] [place] [address] 99102- 5533 Apr, Schizoaffective disorder, chronic 295.72 ; Posttraumatic stress disorder 309.81 and Attention deficit disorder of childhood without mention of hyperactivity 314.00 [facility] [address] [address]- 6135 Mar, Disorganized schizophrenia, 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 [facility] [address] [address]- 5619 Mar, [facility] [address], [place] [address]- 7317 Mar, [facility] [address] [address]- 1489 Mar, [facility] [address] [address]- 1791 Mar, [facility] [id number] [address]- 3306 February, Schizoaffective disorder, chronic 295.72 [facility] [id number] [address] February, [facility] [address] [address] February, Attention deficit disorder of childhood without mention of hyperactivity 314.00 ; Posttraumatic stress disorder 309.81 and Schizoaffective disorder, chronic 295.72 [facility] [address] [address] Jan, [facility] [id number] [address] Jan, [facility] [id number] [address] Jan, [facility] [id number] [address] Dec, [facility] [id number] [address] Dec, [facility] [facility] [id number] [address] Dec, [facility] [id number] [address] Dec, [facility] [id number] [address] Dec, [facility] [id number] [address] Dec, [facility] [id number] [address] Dec, [facility] [id number] [address] Dec, [facility] [id number], [place] [address] Nov, [facility] [id number] [address] Nov, [facility] [place] [facility] [address] [id number] [place] [address] Nov, [facility] [place] [facility] [address] [id number] [place] [address]- 6726 Nov, [facility] [place] [facility] [address] [id number] [place] [address]- 1606 Nov, [facility] [place] [facility] [address] [id number] [place] [address]- 3350 Nov, [facility] [place] [facility] [address] [id number] [place] [address]- 7900 Nov, [facility] [place] [facility] [address] [id number] [place] [address]- 4821 Nov, [facility] [place] [facility] [address] [id number] [place] [address]- 5105 Nov, [facility] [place] [facility] [address] [id number] [place] [address]- 4393 Nov, [facility] [place] [facility] [address] [id number] [place] [address]- 5917 Oct, [facility] [place] [facility] [address] [id number] [place] [address]- 9791 Oct, [facility] [place] [facility] [address] [id number] [address] Oct, [facility] [place] [facility] [address] [id number], [place] [address] Oct, [facility] [place] [facility] [address] [id number] [place] [address]- 0042 Oct, [facility] [place] [facility] [address] [id number] [place] [address]- 6360 Oct, [facility] [place] [facility] [address] [id number] [place] [address]- 8054 Oct, [facility] [place] [facility] [address] [id number] [place] [address]- 8842 17 Sep, 2014 [facility] [place] [facility] [address] [id number] [place] [address]- 5253 17 Sep, 2014 [facility] [place] [facility] [address] [id number] [place] [address]- 3686 15 Sep, 2014 [facility] [place] [facility] [address] [id number] [place] [address]- 3881 15 Sep, 2014 [facility] [place] [facility] [address] [id number] [place] [address]- 8685 20 Aug, 2014 [facility] [place] [facility] [address] [id number] [place] [address]- 8635 20 Aug, 2014 [facility] [place] [facility] [address] [id number] [place] [address]- 6267 14 Aug, 2014 [facility] [place] [facility] [address] [id number] [place] [address]- 0586 Aug, [facility] [place] [facility] [address] [id number] [place] [address]- 2418 14 Aug, 2014 [facility] [place] [facility] [address] [id number] [place] [address]- 0371 Aug, [facility] [place] [facility] [address] [facility] [id number] [place] [address]- 3686 29 Jul, 2014 [facility] [place] [facility] [address] [id number] [place] [address]- 8400 29 Jul, 2014 [facility] [place] [facility] [address] [id number] [place] [address]- 0105 24 Jul, 2014 [facility] [place] [facility] [address] [id number] [place] [address]- 1756 24 Jul, 2014 [facility] [place] [facility] [address] [id number] [place] [address]- 9466 15 Jul, 2014 [facility] [place] [facility] [address] [id number] [place] [address]- 1524 15 Jul, 2014 [facility] [place] [facility] [address] [id number] [place] [address]- 9571 27 Jun, 2013 [facility] [place] [facility] [address] [id number] [place] [address]- 1520 27 Jun, 2013 [facility] [place] [facility] [address] [id number] [place] [address]- 7971 Jun, 2013 [facility] [place] [facility] [address] [id number] [place] [address]- 3323 Jun, 2013 [facility] [place] [facility] [address] [id number] [place] [address]- 9706 Jun, 2013 [facility] [place] [facility] [address] [id number] [place] [address]- 1059 Jun, 2013 [facility] [place] [facility] [address] [id number] [place] [address]- 9536 16 Jun, 2013 [facility] [place] [facility] [address] [id number] [place] [address]- 8020 16 Jun, 2013 [facility] [place] [facility] [address] [id number] [place] [address]- 1668 Jun, 2013 [facility] [place] [facility] [address] [id number] [place] [address]- 5016 16 Jun, 2013 [facility] [place] [facility] [address] [id number] [place] [address]- 1256 Jun, [facility] [place] [facility] [address] [id number] [place] [address]- 0536 May, [facility] [place] [facility] [address] [id number] [place] [address]- 254 May, [facility] [place] [facility] [address] [id number] [place] [address]- 8483 May, [facility] [place] [facility] [address] [id number] [place] [address]- 4877 May, [facility] [place] [facility] [address] [id number] [place] [address]- 4475 May, [facility] [place] [facility] [address] [id number] [place] [address]- 1510 May, [facility] [place] [facility] [address] [id number] [place] [address]- 7577 May, [facility] [place] [facility] [address] [id number] [place] [address]- 1812 May, [facility] [place] [facility] [address] [id number] [place] [address]- 1033 May, [facility] [place] [facility] [address] [id number] [place] [address]- 1515 May, [facility] [place] [facility] [address] [id number] [place] [address]- 8788 Apr, [facility] [place] [facility] [address] [id number] [place] [address]- 5208 Apr, [facility] [place] [facility] [address] [id number] [place] [address]- 6938 Apr, [facility] [place] [facility] [address] [id number] [place] [address]- 0347 Apr, [facility] [place] [facility] [address] [id number] [place] [address]- 9572 Apr, [facility] [place] [facility] [address] [id number] [place] [address]- 2024 Apr, [facility] [place] [facility] [address] [id number] [place] [address]- 8439 Apr, [facility] [place] [facility] [address] [id number] [place] [address]- 4992 Apr, [facility] [place] [facility] [address] [id number] [place] [address]- 5804 Apr, [facility] [place] [facility] [address] [id number] [place] [address]- 8125 Apr, [facility] [place] [facility] [address] [id number] [place] [address]- 0582 26 Mar, 2014 [facility] [place] [facility] [address] [id number] [place] [address]- 0132 Mar, [facility] [place] [facility] [address] [id number] [place] [address]- 8241 25 Mar, 2014 [facility] [place] [facility] [address] [id number] [place] [address]- 6327 24 Mar, 2014 [facility] [place] [facility] [address] [id number] [place] [address]- 4559 20 Mar, 2014 [facility] [place] [facility] [address] [id number] [place] [address]- 9373 18 Mar, 2014 [facility] [place] [facility] [address] [id number] [place] [address]- 1852 18 Mar, 2014 [facility] [place] [facility] [address] [id number] [place] [address]- 8663 16 Mar, 2014 [facility] [place] [facility] [address] [id number] [place] [address]- 3937 16 Mar, 2014 [facility] [place] [facility] [address] [id number] [place] [address]- 1404 Mar, [facility] [place] [facility] [address] [id number] [place] [address]- 5455 13 Mar, 2014 [facility] [place] [facility] [address] [id number] [place] [address]- 2756 Mar, [facility] [place] [facility] [address] [id number] [place] [address]- 2685 Mar, [facility] [place] [facility] [address] [id number] [place] [address]- 5204 10 Mar, 2014 [facility] [place] [facility] [address] [id number] [place] [address]- 9883 09 Mar, 2014 [facility] [place] [facility] [address] [id number] [place] [address]- 8732 Mar, [facility] [place] [facility] [address] [id number] [place] [address]- 3626 Mar, [facility] [place] [facility] [address] [id number] [place] [address]- 9277 Mar, [facility] [place] [facility] [address] [id number] [place] [address]- 6203 Mar, [facility] [place] [facility] [address] [id number] [place] [address]- 8783 Mar, [facility] [place] [facility] [address] [id number] [place] [address]- 2156 February, [facility] [place] [facility] [address] [id number] [place] [address]- 7868 February, [facility] [place] [facility] [address] [id number] [place] [address]- 1532 February, [facility] [place] [facility] [address] [id number] [place] [address]- 7272 February, [facility] [place] [facility] [address] [id number] [place] [address]- 4776 February, [facility] [place] [facility] [address] [id number] [place] [address]- 0440 February, [facility] [place] [facility] [address] [id number] [place] [address]- 8161 February, [facility] [place] [facility] [address] [id number] [place] [address]- 2694 February, [facility] [place] [facility] [address] [id number] [place] [address]- 5894 February, [facility] [place] [facility] [address] [id number] [place] [address]- 0125 February, [facility] [place] [facility] [address] [id number] [place] [address]- 0014 February, [facility] [place] [facility] [address] [id number] [place] [address]- 9156 February, [facility] [address] [id number] [place] [address]- 4788 February, [facility] [place] [facility] [address] [id number] [place] [address]- 9819 February, [facility] [place] [facility] [address] [id number] [place] [address]- 2672 February, [facility] [place] [facility] [address] [id number] [place] [address]- 5155 February, [facility] [place] [facility] [address] [id number] [place] [address]- 9166 February, [facility] [place] [facility] [address] [id number] [place] [address]- 0868 February, [facility] [address] [id number] [place] [address]- 3708 February, [facility] [place] [facility] [address] [id number] [place] [address]- 3643 February, [facility] [place] [facility] [address] [id number] [place] [address]- 9363 February, [facility] [place] [facility] [address] [id number] [place] [address]- 9749 Jan, [facility] [place] [facility] [address] [id number] [place] [address]- 0521 Jan, [facility] [place] [facility] [address] [id number] [place] [address]- 4597 Jan, [facility] [place] [facility] [address] [id number] [place] [address]- 2067 Jan, [facility] [place] [facility] [address] [id number] [place] [address]- 9998 Jan, [facility] [place] [facility] [address] [id number] [place] [address]- 0824 Jan, [facility] [place] [facility] [address] [id number] [place] [address]- 6068 10 Jan, 2014 [facility] [place] [facility] [address] [id number] [place] [address]- 2121 10 Jan, 2014 [facility] [place] [facility] [address] [id number] [place] [address]- 0018 21 Dec, 2013 [facility] [place] [facility] [address] [id number] [place] [address]- 2452 20 Dec, 2013 [facility] [place] [facility] [address] [id number] [place] [address]- 4490 20 Dec, 2013 [facility] [place] [facility] [address] [id number] [place] [address]- 4852 19 Dec, 2013 [facility] [place] [facility] [address] [id number] [place] [address]- 1770 19 Dec, 2013 [facility] [place] [facility] [address] [id number] [place] [address]- 9717 15 Dec, 2013 [facility] [place] [facility] [address] [id number] [place] [address]- 2211 15 Dec, 2013 [facility] [place] [facility] [address] [id number] [place] [address]- 6498 11 Dec, 2013 [facility] [place] [facility] [address] [id number] [place] [address]- 9638 10 Dec, 2013 [facility] [place] [facility] [address] [id number] [place] [address]- 5060 10 Dec, 2013 [facility] [place] [facility] [address] [id number] [place] [address]- 6264 18 Nov, 2013 [facility] [place] [facility] [address] [id number] [place] [address]- 8194 17 Nov, 2013 [facility] [place] [facility] [address] [id number] [place] [address]- 2586 17 Nov, 2013 [facility] [place] [facility] [address] [id number] [address]- 3156 Nov, [facility] [place] [facility] [address] [id number] [place] [address]27 Nov, [facility] [place] [facility] [address] [id number] [place] [address]- 5623 Oct, [facility] [place] [facility] [address] [id number] [place] [address]- 8571 Oct, [facility] [place] [facility] [address] [id number] [place] [address]- 8068 Oct, [facility] [place] [facility] [address] [id number] [place] [address] Sep, [facility] [place] [facility] [address] [id number] [place] [address]- 5333 Sep, [facility] [place] [facility] [address] [id number] [place] [address]- 7630 Sep, [facility] [place] [facility] [address] [id number] [place] [address]- 1835 Sep, [facility] [place] [facility] [address] [id number], [place] [address]- 0504 Aug, [facility] [place] [facility] [address] [id number] [place] [address]- 0572 Aug, [facility] [place] [facility] [address] [id number], [place] [address]- 5806 Jul, [facility] [place] [facility] [address] [id number], [place] [address]- 0165 Jul, [facility] [place] [facility] [address] [id number] [address]60 Jul, [facility] [place] [facility] [address] [id number], [place] [address]- 7586 Jul, [facility] [place] [facility] [address] [id number], [place] [address]- 6874 Jul, [facility] [place] [facility] [address] [id number] [place] [address]- 3591 25 Jun, 2012 [facility] [address] [id number] [place] [address]- 0146 25 Jun, 2012 [facility] [address] [id number] [place] [address]- 2546 19 Jun, 2012 [facility] [address] [id number] [place] [address]- 1276 18 Jun, 2012 [facility] [address] [id number] [place] [address]- 3050 16 Jun, 2012 [facility] [address] [id number] [place] [address]- 1188 12 Jun, 2013 [facility] [address] [id number] [place] [address]- 7727 11 Jun, 2013 [facility] [address] [id number] [place] [address]- 0560 30 May, 2013 [facility] [address] [id number] [place] [address]- 4791 May, [facility] [address] [id number] [place] [address]- 5656 Apr, [facility] [address] [id number] [place] [address]- 8205 Apr, [facility] [address] [id number] [place] [address]- 8542 Apr, [facility] [address] [id number] [place] [address]- 2240 Mar, [facility] [place] [facility] [address] [id number] [place] [address]- 9276 Mar, [facility] [place] [facility] [address] [id number] [place] [address]- 9645 February, [facility] [address] [id number] [place] [address]348 February, [facility] [address] [id number] [place] [address]- 9489 February, [facility] [address] [id number] [place] [address]- 2216 February, [facility] [address] [id number] [place] [address]- 0242 Jan, [facility] [place] [facility] [address] [id number] [place] [address]- 1099 Jan, [facility] [address] [id number] [place] [address]- 7306 Jan, [facility] [address] [id number] [place] [address]- 4100 Dec, [facility] [address] [id number] [place] [address]- 1382 Dec, [facility] [address] [id number] [place] [address]- 3613 Dec, [facility] [address] [id number] [place] [address]- 3614 Dec, [facility] [address] [id number] [place] [address]- 5425 Nov, [facility] [address] [id number] [place] [address]- 6032 Nov, [facility] [place] [facility] [address] [id number] [place] [address]- 8449 Oct, [facility] [place] [facility] [address] [id number] [place] [address]- 5369 Oct, [facility] [place] [facility] [address] [id number] [place] [address]- 4102 Oct, [facility] [place] [facility] [address] [id number] [place] [address]- 7891 Oct, [facility] [place] [facility] [address] [id number] [place] [address]- 7002 Aug, [facility] [place] [facility] [address] [id number] [place] [address]- 6007 Aug, [facility] [place] [facility] [address] [id number] [place] [address]- 4430 Jun, [facility] [place] [facility] [address] [id number] [place] [address]- 9831 May, [facility] [place] [facility] [address] [id number] [place] [address]- 6064 May, [facility] [place] [facility] [address] [id number] [place] [address]- 7576 Apr, [facility] [place] [facility] [address] [id number] [place] [address]- 8453 Apr, [facility] [place] [facility] [address] [id number] [place] [address]- 4377 Apr, [facility] [place] [facility] [address] [id number] [place] [address]- 3511 Mar, [facility] [place] [facility] [address] [id number] [place] [address]- 6890 Mar, [facility] [place] [facility] [address] [id number] [place] [address] 2006 Mar, [facility] [place] [facility] [address] [id number] [place] [address] Mar, [facility] [place] [facility] [address] [id number] [place] [address] Mar, [facility] [place] [facility] [address] [id number] [place] [address] February, [facility] [place] [facility] [address] [id number] [place] [address] February, [facility] [place] [facility] [address] [id number] [place] [address] February, [facility] [place] [facility] [address] [id number] [place] [address] February, [facility] [address] [id number] [place] [address] February, [facility] [place] [facility] [address] [id number] [place] [address] February, [facility] [address] [id number] [place] [address] February, [facility] [address] [id number] [place] [address] Jan, [facility] [place] [facility] [address] [id number] [place] [address] 18 Jan, 2012 [facility] [address] [id number] [place] [address] 17 Jan, 2012 [facility] [address] [id number] [place] [address]- [address] 13 Jan, 2012 [facility] [address] [id number] [place] [address] 10 Jan, 2012 [facility] [address] [id number] [place] [address]- [address] 04 Jan, 2012 [facility] [place] [facility] [address] [id number] [place] [address]- [address] 30 Dec, 2011 [facility] [place] [facility] [address] [id number] [place] [address] 24 Dec, 2011 [facility] [place] [facility] [address] [id number] [place] [address]- [address] 20 Dec, 2011 [facility] [place] [facility] [address] [id number] [place] [address]- [address]285 13 Dec, 2011 [facility] [place] [facility] [address] [id number] [place] [address] 06 Dec, 2011 [facility] [place] [facility] [address] [id number] [place] [address]- [address] 28 Nov, 2011 [facility] [address] [id number] [place] [address] Nov, [facility] [address] [id number] [place] [address] 25 Nov, 2011 [facility] [address] [id number] [place] [address]- [address] 14 Nov, 2011 [facility] [address] [id number] [place] [address]- [address] 10 Nov, 2011 [facility] [address] [id number] [place] [address] Nov, [facility] [address] [id number] [place] [address] Oct, [facility] [address] [id number] [place] [address] Oct, [facility] [address] [id number] [place] [address] Oct, [facility] [address] [id number] [place] [address] Oct, [facility] [address] [id number] [place] [address]- [address] Oct, [facility] [address] [id number] [place] [address] Sep, [facility] [address] [id number] [place] [address]- [address] Sep, [facility] [address] [id number] [place] [address]- [address] Sep, [facility] [place] [facility] [address] [id number] [place] [address] Sep, [facility] [address] [id number] [place] [address]- [address] Sep, [facility] [place] [facility] [address] [id number] [place] [address]- [address] Sep, [facility] [place] [facility] [address] [id number] [place] [address]- [address] Sep, [facility] [place] [facility] [address] [id number] [place] [address]- [address]47 Sep, [facility] [place] [facility] [address] [id number] [place] [address]- [address] Sep, [facility] [place] [facility] [address] [id number] [place] [address]- 289[address] Aug, [facility] [place] [facility] [address] [id number] [place] [address]- 30[address] Aug, [facility] [place] [facility] [address] [id number] [place] [address]- 7463 Aug, [facility] [place] [facility] [address] [id number] [place] [address]- 3818 Aug, [facility] [place] [facility] [address] [id number] [place] [address]- [address] Aug, [facility] [place] [facility] [address] [id number] [place] [address]- 8982 Aug, [facility] [place] [facility] [address] [id number] [place] [address]- 3939 Aug, [facility] [place] [facility] [address] [id number] [place] [address]- 387[address] Aug, [facility] [place] [facility] [address] [id number] [place] [address]- 4453 Aug, [facility] [place] [facility] [address] [id number] [place] [address]- 49[address] Aug, [facility] [place] [facility] [address] [id number] [place] [address]- 2548 Aug, [facility] [place] [facility] [address] [id number] [place] [address]- 4[address] Aug, [facility] [place] [facility] [address] [id number] [place] [address] Jul, [facility] [place] [facility] [address] [id number] [place] [address]- 2007 Jul, [facility] [place] [facility] [address] [id number] [place] [address]- 9599 Jul, [facility] [place] [facility] [address] [id number] [place] [address]- 2061 Jul, [facility] [place] [facility] [address] [id number] [place] [address]- 3936 Jul, [facility] [place] [facility] [address] [id number] [place] [address]- 4764 Jul, [facility] [place] [facility] [address] [id number] [place] [address]- [address] Jul, [facility] [place] [facility] [address] [id number], [place] [address] Jul, [facility] [place] [facility] [address] [id number] [place] [address]- 5793 Jul, [facility] [place] [facility] [address] [id number] [place] [address] Jul, [facility] [place] [facility] [address] [id number], [place] [address] Nov, [facility] [place] [facility] [address] [id number], [place] [address] Aug, [facility] [place] [facility] [address] [id number] [place] [address] Aug, [facility] [place] [facility] [address] [facility] [id number] [address] Aug, [facility] [place] [facility] [address] [id number] [address] Aug, [facility] [address] [facility] [id number] [place], [place] [id number] Jul, IMMUNIZATIONS No Known Immunizations SOCIAL HISTORY Never Assessed REASON FOR VISIT LIANA f/u -Mello AMES PLAN OF CARE Activity Details Follow Up 2 Months Reason: f/u VITAL SIGNS Height 65.75 in 2018-06-20 Weight 184.2 lbs 2018-06-20 Heart Rate 90 bpm 2018-06-20 Respiratory Rate 20 2018-06-20 Oximetry 99 % 2018-06-20 BMI 29.95 kg/m2 2018-06-20 Blood pressure systolic 122 mmHg 2018-06-20 Blood pressure diastolic 70 mmHg 2018-06-20 MEDICATIONS Medication Instructions Dosage Frequency Start Date End Date Duration Status Topamax 100 mg Orally Twice a day 1.5 tablet 12h Active Nitrofurantoin Monohyd Macro 100 MG Orally every 12 hrs 1 capsule with food 12h Not-Taking Metformin HCl 1000 MG Orally 2 times a day 1 tablet 12h Not-Taking Trintellix 20 mg orally Once a day 1 tablet 24h Active Hydrocodone-Acetaminophen 10-325 mg 1 Tablet by Oral route every 8 hours PRN pain Jul, Active Levothyroxine Sodium 75 MCG Orally Once a day 1 tablet on an empty stomach in the morning 24h Active Ventolin HFA 90 MCG/ACT Inhalation every 6 hrs 2 puffs as needed 6h Active Intuniv 2 MG Orally Once a day 1 tablet 24h Active Invega 6 MG Orally Once a day 1 tablet in the morning 24h Active NovoLog Mix 70/30 (70-30) 100 UNIT/ML Subcutaneous 3 times a day 27 units 8h Active Cyproheptadine HCl 4 MG Orally Twice a day 1 tablet 12h 30 days Active Trileptal 600 MG Orally Twice a day 1 tablet 12h Active Levemir 100 UNIT/ML Subcutaneous at bedtime 70 units Active RESULTS No Results PROCEDURES No Known procedures INSTRUCTIONS MEDICATIONS ADMINISTERED No Known Medications MEDICAL (GENERAL) HISTORY Type Description Date Medical History diabetes Medical History thyroid Surgical History appendix Surgical History gallbladder Surgical History eyes Surgical History hip Surgical History MRI on back and pelvis 06/08 Hospitalization History surgeries Hospitalization History [facility] Suicide attempt by hanging 06/14/2016 Hospitalization History [facility] 01/30/2018-02/10/2008 Hospitalization History [facility] 05/04/18-05/09/18
--- OUTSIDE RECORDS SUMMARY | 2018-08-15 20:47 | XMS REPORT ---
Author Author REGAN SAWYER 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 389031180 Problem Borderline personality disorder F60.3 Active 07424436 Problem High risk medication use Z79.899 Active 206580041 Problem Schizoaffective disorder, unspecified F25.9 Active 71039543 Problem Paranoid schizophrenia F20.0 Active 95995686 Problem Posttraumatic stress disorder F43.10 Active 90523282 Problem Attention deficit hyperactivity disorder (ADHD), inattentive type, 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 13820845 Problem Posttraumatic stress disorder 309.81 Active 44093654 Problem Obsessive-compulsive disorders 300.3 Active 613418320 Problem Generalized anxiety disorder 300.02 Active 61093343 Problem Attention deficit disorder of childhood without mention of hyperactivity 314.00 Active 00402198 Problem Bipolar disorder, unspecified 296.80 Active 66410261 ALLERGIES No Information ENCOUNTERS Encounter Location Date Diagnosis [facility] [id number], [place] [address] Mar, [facility] [id number], [place] [address] February, Paranoid schizophrenia F20.0 [facility] [id number] [place] [address] 35131- 8189 February, Paranoid schizophrenia F20.0 ; Posttraumatic stress disorder F43.10 ; Attention deficit hyperactivity disorder (ADHD), inattentive type, 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 and Borderline personality disorder F60.3 [facility] [id number], [place] [address] February, Paranoid schizophrenia F20.0 ; Posttraumatic stress disorder F43.10 ; Attention deficit hyperactivity disorder (ADHD), inattentive type, 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 and Borderline personality disorder F60.3 [facility] [address], [place] [address] February, [facility] [address] [place] [address] 16897- 6829 February, Paranoid schizophrenia F20.0 [facility] [id number] [place] [address] 49716- 7552 February, Paranoid schizophrenia F20.0 [facility] [id number], [place] [address] 75[address] February, Paranoid schizophrenia F20.0 ; Posttraumatic stress disorder F43.10 ; Attention deficit hyperactivity disorder (ADHD), inattentive type, 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 and Borderline personality disorder F60.3 [facility] [id number], [place] [address] Jan, Paranoid schizophrenia F20.0 ; Posttraumatic stress disorder F43.10 ; Attention deficit hyperactivity disorder (ADHD), inattentive type, 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 and Borderline personality disorder F60.3 [facility] [address], [place] [address] 6747 Jan, Paranoid schizophrenia F20.0 [facility] [id number], [place] [address]- 3708 Jan, Paranoid schizophrenia F20.0 [facility] [address], [place] [address] 36[address] Jan, Paranoid schizophrenia F20.0 ; Posttraumatic stress disorder F43.10 ; Attention deficit hyperactivity disorder (ADHD), inattentive type, 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 and Borderline personality disorder F60.3 [facility] [id number], [place] [address] Dec, [facility] [address], [place] [address] 2[address] Nov, Paranoid schizophrenia F20.0 ; Posttraumatic stress disorder F43.10 ; Attention deficit hyperactivity disorder (ADHD), inattentive type, 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 and Borderline personality disorder F60.3 [facility] [address], [place] [address] 7[address] Nov, [facility] [address], [place] [address]- 9781 Oct, Paranoid schizophrenia F20.0 [facility] [address] [place] [address] 72899- 9616 Oct, Paranoid schizophrenia F20.0 ; Posttraumatic stress disorder F43.10 ; Attention deficit hyperactivity disorder (ADHD), inattentive type, 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 ; Borderline personality disorder F60.3 and Other intermediate teacher ( 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 Z79.899 [facility] [address], [place] [address]- 6[address] Oct, [facility] [address], [place] [address]- 8476 Oct, [facility] [address], [place] [address]- 2824 Sep, [facility] [address], [place] [address]- 0367 Sep, Paranoid schizophrenia F20.0 ; Posttraumatic stress disorder F43.10 ; Attention deficit hyperactivity disorder (ADHD), inattentive type, 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 and Borderline personality disorder F60.3 [facility] [address], [place] [address]- 7496 Sep, Paranoid schizophrenia F20.0 [facility] [id number], [place] [address]- 2546 Aug, Paranoid schizophrenia F20.0 ; Posttraumatic stress disorder F43.10 ; Attention deficit hyperactivity disorder (ADHD), inattentive type, 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 and Borderline personality disorder F60.3 [facility] [address], [place] [address]- 0494 Aug, Paranoid schizophrenia F20.0 ; Posttraumatic stress disorder F43.10 ; Attention deficit hyperactivity disorder (ADHD), inattentive type, 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 and Borderline personality disorder F60.3 [facility] [id number] [place] [address] 59632- 6822 Aug, [facility] [address] [place] [address] 82057- 1718 Jul, Paranoid schizophrenia F20.0 ; Posttraumatic stress disorder F43.10 ; Attention deficit hyperactivity disorder (ADHD), inattentive type, 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 and Borderline personality disorder F60.3 [facility] [address], [place] [address]- 9781 Jul, Paranoid schizophrenia F20.0 [facility] [address], [place] [address]- 7233 Jul, Paranoid schizophrenia F20.0 ; Posttraumatic stress disorder F43.10 ; Attention deficit hyperactivity disorder (ADHD), inattentive type, 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 and Borderline personality disorder F60.3 [facility] [address], [place] [address]- 8069 Jun, Paranoid schizophrenia F20.0 ; Posttraumatic stress disorder F43.10 ; Attention deficit hyperactivity disorder (ADHD), inattentive type, 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 and Borderline personality disorder F60.3 [facility] [address], [place] [address]- 3950 May, Other penitentiary (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 Z79.899 [facility] [address], [place] [address]- 1700 May, [facility] [address] [place] [address] 58085- 1319 May, [facility] [address], [place] [address]- 3039 May, Attention deficit hyperactivity disorder (ADHD), inattentive type, 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 [facility] [address], [place] [address]- 0019 May, [facility] [address], [place] [address]- 5354 May, Attention deficit hyperactivity disorder (ADHD), inattentive type, 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 [facility] [address], [place] [address]- 9719 May, Paranoid schizophrenia F20.0 ; Posttraumatic stress disorder F43.10 ; Attention deficit hyperactivity disorder (ADHD), inattentive type, 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 and Other penitentiary (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 Z79.899 [facility] [address], [place] [address]- 3989 Apr, Paranoid schizophrenia F20.0 [facility] [address], [place] [address]- 3095 Apr, Paranoid schizophrenia F20.0 ; Posttraumatic stress disorder F43.10 and Attention deficit hyperactivity disorder (ADHD), inattentive type, 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 [facility] [address], [place] [address]- 9476 February, [facility] [address], [place] [address]- 7025 February, Paranoid schizophrenia F20.0 ; Posttraumatic stress disorder F43.10 and Attention deficit hyperactivity disorder (ADHD), inattentive type, 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 [facility] [id number], [place] [address]- 8376 February, Paranoid schizophrenia F20.0 ; Posttraumatic stress disorder F43.10 and Attention deficit hyperactivity disorder (ADHD), inattentive type, 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 [facility] [id number], [place] [address]- 4555 Jan, Paranoid schizophrenia F20.0 ; Posttraumatic stress disorder F43.10 and Attention deficit hyperactivity disorder (ADHD), inattentive type, 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 [facility] [address] [id number] Dec, Dental examination Z01.20 [facility] [id number] [id number] Nov, Dental examination Z01.20 [facility] [id number] [place] [address] [id number] Nov, Dental examination Z01.20 [facility] [id number] [place] [address] [id number] Nov, Dental caries K02.9 [facility] [address] [place] [address] 60269- 8029 13 Nov, 2016 High risk medication use Z79.899 [facility] [address] [place] [address] 66765- 7816 Nov, Paranoid schizophrenia F20.0 ; Posttraumatic stress disorder F43.10 ; Attention deficit hyperactivity disorder (ADHD), inattentive type, 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 and Borderline personality disorder in adult F60.3 [facility] [id number] [address] Oct, Dental caries K02.9 [facility] [address] [place] [address] 62683- 5485 05 Sep, 2016 Paranoid schizophrenia F20.0 ; Posttraumatic stress disorder F43.10 and Attention deficit hyperactivity disorder (ADHD), inattentive type, 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 [facility] [address] [place] [address] 82791- 2963 16 Aug, 2016 Paranoid schizophrenia F20.0 ; Posttraumatic stress disorder F43.10 and Attention deficit hyperactivity disorder (ADHD), inattentive type, 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 [facility] [address], [place] [address] Aug, Strep throat J02.0 and Cough R05 [facility] [id number] [place] [address] 79426- 2359 Aug, [facility] [id number] [place] [address] 34025- 5133 Jul, Paranoid schizophrenia F20.0 ; Posttraumatic stress disorder F43.10 and Attention deficit hyperactivity disorder (ADHD), inattentive type, 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 [facility] [id number] [place] [address] 16528- 7692 Jul, [facility] [id number] [place] [address] 98749- 1207 Jun, Paranoid schizophrenia F20.0 ; Posttraumatic stress disorder F43.10 and Attention deficit hyperactivity disorder (ADHD), inattentive type, 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 [facility] [id number] [place] [address] [id number] Jun, Dental examination Z01.20 [facility] [id number] [place] [address] 54231- 5630 Jun, [facility] [id number] [place] [address] 60719- 9078 May, Paranoid schizophrenia F20.0 [facility] [id number] [place] [address] 74601- 8905 May, Paranoid schizophrenia F20.0 ; Posttraumatic stress disorder F43.10 and Attention deficit hyperactivity disorder (ADHD), inattentive type, 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 [facility] [address], [place] [address]- 3691 May, [facility] [id number] [place] [address] 74421- 9107 May, Paranoid schizophrenia F20.0 [facility] [address] [place] [address] 08606- 3656 May, [facility] [id number], [place] [address]- 1637 May, Paranoid schizophrenia F20.0 [facility] [address] [facility] [id number], [place] [address]- 0255 May, Schizoaffective disorder, unspecified F25.9 [facility] [id number], [place] [address]- 4105 May, Schizoaffective disorder, unspecified F25.9 [facility] [id number], [place] [address]- 2584 May, [facility] [id number] [place] [address] 07592- 5028 May, Paranoid schizophrenia F20.0 [facility] [id number], [place] [address]- 5345 May, Paranoid schizophrenia F20.0 ; Posttraumatic stress disorder F43.10 and Attention deficit hyperactivity disorder (ADHD), inattentive type, 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 [facility] [id number], [place] [address]- 1945 Mar, [facility] [address], [place] [address]- 5460 Mar, Paranoid schizophrenia F20.0 ; Posttraumatic stress disorder F43.10 and Attention deficit hyperactivity disorder (ADHD), inattentive type, 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 [facility] [id number], [place] [address]- 9625 16 Mar, 2016 Paranoid schizophrenia F20.0 [facility] [id number], [place] [address]- 0957 Mar, Paranoid schizophrenia F20.0 ; Attention deficit hyperactivity disorder (ADHD), inattentive type, 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 and Posttraumatic stress disorder F43.10 [facility] [id number], [place] [address]- 6798 Mar, [facility] [id number], [place] [address]- 8808 Mar, Paranoid schizophrenia F20.0 ; Posttraumatic stress disorder F43.10 and Attention deficit hyperactivity disorder (ADHD), inattentive type, 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 [facility] [address], [place] [address]- 6223 February, [facility] [id number] [place] [address] 81105- 1524 February, [facility] [id number] [place] [address] 64344- 2760 February, [facility] [id number] [place] [address] 96524- 5404 February, [facility] [id number] [place] [address] 39584- 6175 Jan, Paranoid schizophrenia F20.0 [facility] [id number] [place] [address] [id number] Jan, Dental examination Z01.20 [facility] [id number] [place] [address] [id number] Jan, Dental caries K02.9 [facility] [id number] [place] [address] [id number] Jan, Dental examination Z01.20 [facility] [id number] [place] [address] [id number] Dec, Encounter for dental examination Z01.20 [facility] [address] [place] [address] 48230- 6834 Dec, Paranoid schizophrenia F20.0 [facility] [id number] [place] [address] [id number] Dec, Dental examination Z01.20 [facility] [id number] [address]- 6490 Dec, [facility] [id number] [place] [address] 49869- 4192 Dec, Paranoid schizophrenia F20.0 ; Posttraumatic stress disorder F43.10 and Attention deficit hyperactivity disorder (ADHD), inattentive type, 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 [facility] [address], [place] [address]- 1842 Nov, Schizoaffective disorder, unspecified F25.9 [facility] [id number], [place] [address]- 9049 Oct, Paranoid schizophrenia F20.0 [facility] [id number], [place] [address]- 5560 Oct, [facility] [id number] [place] [address] 99526- 3392 Sep, Paranoid schizophrenia F20.0 ; Posttraumatic stress disorder F43.10 and Attention deficit hyperactivity disorder (ADHD), inattentive type, 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 [facility] [address], [place] [address]- 5686 Sep, [facility] [id number] [place] [address] 94295- 2454 Sep, Paranoid schizophrenia F20.0 ; Posttraumatic stress disorder F43.10 and Attention deficit hyperactivity disorder (ADHD), inattentive type, 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 [facility] [address], [place] [address]- 1222 Aug, Paranoid schizophrenia F20.0 [facility] [address], [place] [address]- 6167 Aug, [facility] [id number], [place] [address]- 1269 Aug, Posttraumatic stress disorder F43.10 ; Paranoid schizophrenia F20.0 and Attention deficit hyperactivity disorder (ADHD), inattentive type, 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 [facility] [id number], [place] [address]- 1761 Jul, Bipolar disorder, unspecified F31.9 [facility] [id number], [place] [address]- 3378 Jul, [facility] [address], [place] [address]- 4491 Jun, [facility] [address], [place] [address]- 5554 Jun, Schizoaffective disorder, chronic 295.72 ; Posttraumatic stress disorder 309.81 and Attention deficit disorder of childhood without mention of hyperactivity 314.00 [facility] [address], [place] [address]- 7305 May, [facility] [address] [place] [address] 90957- 7229 May, [facility] [address], [place] [address]- 6647 May, Schizoaffective disorder, chronic 295.72 ; Posttraumatic stress disorder 309.81 ; Attention deficit disorder of childhood without mention of hyperactivity 314.00 and Bipolar disorder, unspecified 296.80 [facility] [address], [place] [address]- 8314 Apr, Schizoaffective disorder, chronic 295.72 [facility] [address], [place] [address]- 8215 Apr, [facility] [address], [place] [address]- 5106 Apr, Schizoaffective disorder, chronic 295.72 ; Posttraumatic stress disorder 309.81 and Attention deficit disorder of childhood without mention of hyperactivity 314.00 [facility] [address], [place] [address]- 0832 Mar, Disorganized schizophrenia, 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 [facility] [address], [place] [address]- 0487 Mar, [facility] [id number], [place] [address]- 5136 Mar, [facility] [id number], [place] [address] 2546 Mar, [facility] [address], [place] [address]- 7266 Mar, [facility] [address], [place] [address]- 4986 February, Schizoaffective disorder, chronic 295.72 [facility] [id number] [place] [address] 00819- 0117 February, [facility] [address], [place] [address]- 9171 February, Attention deficit disorder of childhood without mention of hyperactivity 314.00 ; Posttraumatic stress disorder 309.81 and Schizoaffective disorder, chronic 295.72 [facility] [address], [place] [address]- 2929 Jan, [facility] [id number], [place] [address]- 3275 14 Jan, 2015 [facility] [address], [place] [address]- 6034 Jan, [facility] [address], [place] [address]- 5406 Dec, [facility] [address], [place] [address]- 9697 Dec, [facility] [address], [place] [address] 2546 Dec, [facility] [address], [place] [address] 2544 Dec, [facility] [address], [place] [address] 2546 Dec, [facility] [address], [place] [address]- 2546 Dec, [facility] [address], [place] [address]- 0576 Dec, [facility] [place] [facility] [address] [facility] [id number] [place] [address]- 3247 Dec, [facility] [place] [facility] [address] [facility] [id number] [place] [address]- 4916 Nov, 2014 [facility] [place] [facility] [address] [facility] [id number] [place] [address]- 8346 Nov, 2014 [facility] [place] [facility] [address] [facility] [id number] [place] [address]- 3919 Nov, 2014 [facility] [place] [facility] [address] [facility] [id number] [place] [address]- 6119 Nov, 2014 [facility] [place] [facility] [address] [facility] [id number] [place] [address]- 3100 Nov, 2014 [facility] [place] [facility] [id number] [place] [address]- 2273 Nov, 2014 [facility] [place] [facility] [address] [facility] [id number] [place] [address]- 7907 Nov, [facility] [place] [facility] [address] [facility] [id number] [place] [address]- 9051 Nov, 2014 [facility] [place] [facility] [address] [facility] [id number] [place] [address]- 1264 Nov, [facility] [place] [facility] [address] [facility] [id number] [place] [address]- 8137 Nov, [facility] [place] [facility] [address] [facility] [id number], [place] [address]- 4704 Oct, [facility] [place] [facility] [address] [facility] [id number], [place] [address]- 6486 Oct, [facility] [place] [facility] [address] [facility] [id number], [place] [address]- 3622 Oct, [facility] [place] [facility] [address] [facility] [id number], [place] [address]- 0101 Oct, [facility] [place] [facility] [address] [id number] [place] [address]- 7575 15 Oct, 2014 [facility] [place] [facility] [address] [id number] [place] [address]- 9698 Oct, [facility] [place] [facility] [address] [id number] [place] [address]- 3885 13 Oct, 2014 [facility] [place] [facility] [address] [id number] [place] [address]- 0800 17 Sep, 2014 [facility] [place] [facility] [address] [id number] [place] [address]- 5731 17 Sep, 2014 [facility] [place] [facility] [address] [id number] [place] [address]- 6341 15 Sep, 2014 [facility] [place] [facility] [address] [id number] [place] [address]- 5487 15 Sep, 2014 [facility] [place] [facility] [address] [id number] [place] [address]- 2394 Aug, [facility] [place] [facility] [address] [id number] [place] [address] 20 Aug, 2014 [facility] [place] [facility] [address] [id number] [place] [address] 14 Aug, 2014 [facility] [place] [facility] [address] [id number] [place] [address] 14 Aug, 2014 [facility] [place] [facility] [address] [id number] [place] [address] 14 Aug, 2014 [facility] [place] [facility] [address] [id number] [place] [address] Aug, [facility] [place] [facility] [address] [id number] [place] [address] Jul, [facility] [place] [facility] [address] [id number] [place] [address] 29 Jul, 2014 [facility] [place] [facility] [address] [id number] [address] 24 Jul, 2014 [facility] [place] [facility] [address] [id number] [place] [address] 24 Jul, 2014 [facility] [facility] [address] [id number] [place] [address] 15 Jul, 2014 [facility] [place] [facility] [address] [id number] [place] [address] 8[address] 15 Jul, 2014 [facility] [place] [facility] [address] [id number], [place] [address] 27 Jun, 2013 [facility] [place] [facility] [address] [id number] [place] [address] 6317 27 Jun, 2013 [facility] [place] [facility] [address] [id number] [place] [address]- 3488 26 Jun, 2013 [facility] [place] [facility] [address] [id number] [place] [address]- 9539 26 Jun, 2013 [facility] [place] [facility] [address] [id number] [place] [address]- 5617 26 Jun, 2013 [facility] [place] [facility] [address] [id number] [place] [address]- 2682 26 Jun, 2013 [facility] [place] [facility] [address] [id number] [place] [address]- 2542 16 Jun, 2013 [facility] [place] [facility] [address] [id number], [place] [address] 16 Jun, 2013 [facility] [address] [id number], [place] [address] 2542 16 Jun, 2013 [facility] [place] [facility] [address] [id number] [place] [address] 2545 16 Jun, 2013 [facility] [place] [address] [id number] [place] [address]- 2773 04 Jun, 2013 [facility] [address] [id number] [place] [address]- 9328 29 May, 2014 [facility] [facility] [address] [id number] [place] [address] 4701 May, [facility] [place] [address] [id number] [place] [address]- 9410 May, [facility] [place] [facility] [address] [id number] [place] [address]- 3275 May, [facility] [place] [facility] [address] [id number] [place] [address]- 1171 May, [facility] [place] [facility] [address] [id number] [place] [address]- 8207 May, [facility] [place] [facility] [address] [id number] [place] [address]- 7044 May, [facility] [address] [id number] [place] [address]- 5894 May, [facility] [address] [id number] [place] [address]- 3015 May, [facility] [address] [id number] [place] [address]- 9610 May, [facility] [address] [id number] [place] [address]- 8017 Apr, [facility] [address] [id number] [place] [address]- 9641 Apr, [facility] [address] [id number] [place] [address]- 5498 Apr, [facility] [address] [id number] [place] [address]- 3475 Apr, [facility] [address] [id number] [place] [address]- 9582 Apr, [facility] [address] [id number] [place] [address]- 6412 Apr, [facility] [address] [id number] [place] [address]- 8665 Apr, [facility] [address] [id number] [place] [address]- 6246 Apr, [facility] [address] [id number] [place] [address]- 1960 Apr, [facility] [address] [id number] [place] [address]- 8745 Apr, [facility] [facility] [address] [id number] [place] [address]- 5000 Mar, [facility] [address] [id number] [place] [address]- 1033 Mar, [facility] [address] [id number] [place] [address]- 7685 Mar, [facility] [place] [address] [id number] [place] [address]- 9897 Mar, [facility] [address] [id number] [place] [address]- 6072 Mar, [facility] [address] [id number] [place] [address]- 2237 18 Mar, 2014 [facility] [address] [id number] [place] [address]- 7811 18 Mar, 2014 [facility] [address] [id number] [place] [address]- 9432 16 Mar, 2014 [facility] [address] [id number][place] [address]- 0410 16 Mar, 2014 [facility] [address] [id number] [place] [address]- 5898 13 Mar, 2014 [facility] [address] [id number] [place] [address]- 3319 13 Mar, 2014 [facility] [address] [id number] [place] [address]- 4610 11 Mar, 2014 [facility] [address] [id number] [place] [address]- 8202 Mar, [facility] [address] [id number] [place] [address]- 1171 Mar, [facility] [address] [id number] [place] [address]- 5624 Mar, [facility] [address] [id number] [place] [address]- 6818 Mar, [facility] [address] [id number] [place] [address]- 9642 Mar, [facility] [address] [id number] [place] [address]- 5005 Mar, [facility] [address] [id number] [place] [address]- 2579 Mar, [facility] [address] [id number] [place] [address]- 4713 Mar, [facility] [address] [id number] [place] [address]- [address] February, [facility] [address] [id number] [place] [address]- 9733 February, [facility] [address] [id number] [place] [address]- 7739 February, [facility] [address] [id number] [place] [address]- 9015 February, [facility] [address] [id number] [place] [address]- 3858 February, [facility] [address] [id number] [place] [address]- 9742 February, [facility] [address] [id number] [place] [address]- 0890 February, [facility] [address] [id number] [place] [address]- 0307 February, [facility] [address] [id number] [place] [address]- 3976 February, [facility] [address] [id number] [place] [address]- 9061 February, [facility] [address] [id number] [place] [address]- 9206 February, [facility] [address] [id number] [place] [address]- 4183 February, [facility] [address] [id number] [place] [address]- 3237 February, [facility] [address] [id number] [place] [address]- 3853 February, [facility] [address] [id number] [place] [address]- 9012 February, [facility] [address] [id number] [place] [address]- 3728 February, [facility] [address] [id number] [place] [address]- 8114 February, [facility] [address] [id number] [place] [address]- 6714 February, [facility] [address] [id number] [place] [address] February, [facility] [address] [id number] [place] [address]- 4329 February, [facility] [address] [id number] [place] [address]- 3371 February, [facility] [address] [id number] [place] [address]- 4095 Jan, [facility] [address] [id number] [place] [address]- 5286 Jan, [facility] [address] [id number] [place] [address]- 2609 18 Jan, 2014 [facility] [address] [id number] [place] [address]- 0246 18 Jan, 2014 [facility] [address] [id number] [place] [address]- 1600 18 Jan, 2014 [facility] [address] [id number] [place] [address]- 3330 18 Jan, 2014 [facility] [address] [id number] [place] [address]- 9341 10 Jan, 2014 [facility] [address] [id number] [place] [address]- 1940 10 Jan, 2014 [facility] [address] [id number] [place] [address]- 6486 21 Dec, 2013 [facility] [address] [id number] [place] [address]- 3948 20 Dec, 2013 [facility] [address] [id number] [place] [address]- 6694 20 Dec, 2013 [facility] [address] [id number] [place] [address]- 4162 19 Dec, 2013 [facility] [address] [id number] [place] [address]- 3884 19 Dec, 2013 [facility] [address] [id number] [place] [address]- 6308 15 Dec, 2013 [facility] [address] [id number] [place] [address]- 5268 15 Dec, 2013 [facility] [address] [id number] [place] [address]- 3526 11 Dec, 2013 [facility] [address] [id number] [place] [address]- 0132 10 Dec, 2013 [facility] [address] [id number] [place] [address]- 2424 10 Dec, 2013 [facility] [address] [id number] [place] [address]- 9674 18 Nov, 2013 [facility] [address] [id number] [place] [address]- 4456 Nov, [facility] [address] [id number] [place] [address]- 9256 Nov, [facility] [address] [id number] [place] [address]- 8586 Nov, [facility] [address] [id number] [place] [address]- 5099 Nov, [facility] [address] [id number] [place] [address]- 6040 Oct, [facility] [address] [facility] [id number] [place] [address]- 5842 Oct, [facility] [address] [facility] [id number] [place] [address]- 5623 Oct, [facility] [address] [id number] [place] [address] Sep, [facility] [address] [facility] [id number] [place] [address]- 2601 Sep, [facility] [address] [facility] [id number] [place] [address]- 4250 Sep, [facility] [address] [facility] [id number] [place] [address]- 4425 Sep, [facility] [address] [id number] [place] [address]- 6507 Aug, [facility] [address] [id number] [place] [address]- 5652 Aug, [facility] [address] [facility] [id number] [place] [address]- 2546 Jul, [facility] [address] [facility] [id number] [place] 2191 Jul, [facility] [address] [id number] [place] [address]- 7965 Jul, [facility] [facility] [address] [id number] [place] [address]- 1958 Jul, [facility] [address] [id number] [place] [address]- 8911 Jul, [facility] [address] [id number] [place] [address]- 7819 Jun, [facility] [address] [id number] [place] [address]- 3078 25 Jun, 2013 [facility] [address] [id number] [place] [address]- 8692 19 Jun, 2013 [facility] [address] [id number] [place] [address]- 1492 18 Jun, 2013 [facility] [address] [id number] [place] [address]- 8772 16 Jun, 2013 [facility] [address] [id number] [place] [address]- 8363 12 Jun, 2013 [facility] [address] [id number], [place] [address]- 6325 Jun, [facility] [address] [id number], [place] [address]- 8667 May, [facility] [address] [id number], [place] [address]- 5140 May, [facility] [address] [id number] [place] [address]- 2756 Apr, [facility] [address] [id number], [place] [address]- 3633 Apr, [facility] [address] [id number], [place] [address]- 1874 Apr, [facility] [address] [id number], [place] [address]- 2987 Mar, [facility] [address] [id number] [place] [address]- 7837 Mar, [facility] [address] [id number] [place] [address]- 6821 February, [facility] [address] [id number] [place] [address]- 9211 February, [facility] [address] [id number] [place] [address]- 1895 February, [facility] [address] [id number] [place] [address]- 9055 February, [facility] [address] [id number] [place] [address]- 9998 Jan, [facility] [address] [id number] [place] [address]- 6317 Jan, [facility] [address] [id number] [place] [address]- 3189 Jan, [facility] [address] [id number] [place] [address]- 2078 Dec, [facility] [address] [id number] [place] [address]- 7644 Dec, [facility] [address] [id number] [place] [address]- 2739 Dec, [facility] [address] [id number], [place] [address]- 1723 Dec, [facility] [address] [id number] [place] [address]- 0269 Nov, [facility] [address] [id number] [place] [address]255 Nov, [facility] [address] [facility] [id number], [place] [address]- 1915 Oct, [facility] [place] [facility] [address] [id number] [place] [address]- 7426 Oct, [facility] [place] [facility] [address] [id number] [place] [address]- 2072 Oct, [facility] [place] [facility] [address] [id number] [place] [address]- 0377 Oct, [facility] [place] [facility] [address] [id number] [place] [address]- 9941 Aug, [facility] [place] [facility] [address] [id number] [place] [address]- 3095 Aug, [facility] [place] [facility] [address] [id number] [place] [address]- 3602 Jun, [facility] [place] [facility] [address] [id number] [place] [address]- 0585 May, [facility] [place] [facility] [address] [id number] [place] [address]- 8894 May, [facility] [place] [facility] [address] [id number] [place] [address]- 1615 Apr, [facility] [place] [facility] [address] [id number] [place] [address]- 3313 Apr, [facility] [place] [facility] [address] [id number] [place] [address]- 6962 Apr, [facility] [place] [facility] [address] [id number] [place] [address]- 1642 Mar, [facility] [place] [facility] [address] [id number] [place] [address]- 7638 Mar, [facility] [place] [facility] [address] [id number] [place] [address]- 4550 Mar, [facility] [place] [facility] [address] [id number] [place] [address]- 7777 Mar, [facility] [place] [facility] [address] [id number] [place] [address]- 4012 Mar, [facility] [address] [id number] [place] [address]- 5711 February, [facility] [place] [facility] [address] [id number] [place] [address]- 7196 February, [facility] [place] [facility] [address] [id number] [place] [address]- 3966 February, [facility] [place] [facility] [address] [id number] [place] [address]- 0002 February, [facility] [address] [id number] [place] [address]- 8381 February, [facility] [place] [facility] [address] [id number] [place] [address]- 4316 February, [facility] [place] [facility] [address] [id number] [place] [address]- 5286 February, [facility] [place] [facility] [address] [id number] [place] [address]- 4043 Jan, [facility] [place] [facility] [address] [id number] [place] [address]- 6292 Jan, [facility] [place] [facility] [address] [id number] [place] [address]- 7303 Jan, [facility] [place] [facility] [address] [id number] [place] [address]- 5665 13 Jan, 2012 [facility] [place] [facility] [address] [id number] [place] [address]- 7929 10 Jan, 2012 [facility] [place] [facility] [address] [id number] [place] [address]- 1404 04 Jan, 2012 [facility] [place] [facility] [address] [id number] [place] [address]- 9581 30 Dec, 2011 [facility] [place] [facility] [address] [id number] [place] [address]- 8256 24 Dec, 2011 [facility] [place] [facility] [address] [id number] [place] [address]- 4406 20 Dec, 2011 [facility] [address] [id number] [place] [address] 2546 Dec, [facility] [place] [facility] [address] [id number] [place] [address] 2546 06 Dec, 2011 [facility] [place] [facility] [address] [id number] [place] [address]- 1426 28 Nov, 2011 [facility] [place] [facility] [address] [id number] [place] [address]49 Nov, [facility] [place] [facility] [address] [id number] [place] [address] Nov, [facility] [place] [facility] [address] [id number] [place] [address] 14 Nov, 2011 [facility] [place] [facility] [address] [id number] [place] [address] 2549 Nov, [facility] [place] [facility] [address] [id number] [place] [address] Nov, [facility] [place] [facility] [address] [id number] [place] [address] Oct, [facility] [place] [facility] [address] [id number] [place] [address] Oct, [facility] [place] [facility] [address] [id number] [place] [address] 2544 Oct, [facility] [place] [facility] [address] [id number] [place] [address] 2541 Oct, [facility] [place] [facility] [address] [id number] [place] [address] 2546 Oct, [facility] [place] [facility] [address] [id number] [place] [address] Sep, [facility] [place] [facility] [address] [id number] [place] [address] 21 Sep, 2011 [facility] [place] [facility] [address] [id number] [place] [address]12 20 Sep, 2011 [facility] [place] [facility] [address] [id number] [place] [address] 14 Sep, 2011 [facility] [place] [facility] [address] [id number] [place] [address] 14 Sep, 2011 [facility] [place] [facility] [address] [id number] [place] [address] 13 Sep, 2011 [facility] [place] [facility] [address] [id number] [place] [address] 12 Sep, 2011 [facility] [place] [facility] [address] [id number] [place] [address] 09 Sep, 2011 [facility] [place] [facility] [address] [id number] [place] [address] 05 Sep, 2011 [facility] [place] [facility] [address] [id number] [place] [address] 30 Aug, 2011 [facility] [place] [facility] [address] [id number] [place] [address] 30 Aug, 2011 [facility] [place] [facility] [address] [id number] [place] [address]- 2626 25 Aug, 2011 [facility] [place] [facility] [address] [id number], [place] [address] Aug, [facility] [place] [facility] [address] [id number], [place] [address] Aug, [facility] [place] [facility] [address] [id number] [place] [address] Aug, [facility] [place] [facility] [address] [id number] [place] [address]- [address] 16 Aug, 2011 [facility] [place] [facility] [address] [id number] [place] [address] 16 Aug, 2011 [facility] [place] [facility] [address] [id number] [place] [address] Aug, [facility] [place] [facility] [address] [id number] [place] [address] Aug, [facility] [place] [facility] [address] [id number] [place] [address] Aug, [facility] [place] [facility] [address] [id number] [place] [address] Aug, [facility] [place] [facility] [address] [id number] [place] [address] Jul, [facility] [place] [facility] [address] [id number] [place] [address] Jul, [facility] [place] [facility] [address] [id number] [place] [address] Jul, [facility] [place] [facility] [address] [id number] [place] [address] Jul, [facility] [place] [facility] [address] [id number] [place] [address] Jul, [facility] [place] [facility] [address] [id number] [place] [address]- [address] Jul, [facility] [place] [facility] [address] [id number] [place] [address] Jul, [facility] [place] [facility] [address] [id number] [place] [address] Jul, [facility] [place] [facility] [address] [id number] [place] [address] 4660 Jul, [facility] [place] [facility] [address] [id number] [place] [address]- [address] Jul, [facility] [place] [facility] [address] [id number] [place] [address]694 Nov, [facility] [place] [facility] [address] [id number] [place] [address] Aug, [facility] [address] [facility] [id number] [place] [id number] Aug, [facility] [address] [id number], [place] [address] Aug, [facility] [address] [id number], [place] [address] Aug, [facility] [address] [id number] [address] Jul, IMMUNIZATIONS No Known Immunizations SOCIAL HISTORY Never Assessed REASON FOR VISIT PA-intuniv PLAN OF CARE VITAL SIGNS MEDICATIONS Unknown [...]
--- OUTSIDE RECORDS SUMMARY | 2018-08-15 20:48 | XMS REPORT ---
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 355724314 Problem Borderline personality disorder F60.3 Active 97526840 Problem High risk medication use Z79.899 Active 126625708 Problem Schizoaffective disorder, unspecified F25.9 Active 55715379 Problem Paranoid schizophrenia F20.0 Active 30115118 Problem Posttraumatic stress disorder F43.10 Active 86119559 Problem Attention deficit hyperactivity disorder (ADHD), inattentive type, 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 95086557 Problem Posttraumatic stress disorder 309.81 Active 12851517 Problem Obsessive-compulsive disorders 300.3 Active 258902976 Problem Generalized anxiety disorder 300.02 Active 14029824 Problem Attention deficit disorder of childhood without mention of hyperactivity 314.00 Active 35909138 Problem Bipolar disorder, unspecified 296.80 Active 36178800 ALLERGIES No Information ENCOUNTERS Encounter Location Date Diagnosis [facility] [id number] [address] Apr, [facility] [address] [facility] [id number] [address] Mar, [facility] [id number] [place] [address]- 8219 Mar, Paranoid schizophrenia F20.0 ; Posttraumatic stress disorder F43.10 ; Attention deficit hyperactivity disorder (ADHD), inattentive type, 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 and Borderline personality disorder F60.3 [facility] [facility] [id number] [address] February, Paranoid schizophrenia F20.0 [facility] [address], [place] [address] February, Paranoid schizophrenia F20.0 ; Posttraumatic stress disorder F43.10 ; Attention deficit hyperactivity disorder (ADHD), inattentive type, 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 and Borderline personality disorder F60.3 [facility] [address] [address] February, Paranoid schizophrenia F20.0 ; Posttraumatic stress disorder F43.10 ; Attention deficit hyperactivity disorder (ADHD), inattentive type, 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 and Borderline personality disorder F60.3 [facility] [address] [address] February, [facility] [address], [place] [address] February, Paranoid schizophrenia F20.0 [facility] [address], [place] [address] February, Paranoid schizophrenia F20.0 [facility] [id number] [address] February, Paranoid schizophrenia F20.0 ; Posttraumatic stress disorder F43.10 ; Attention deficit hyperactivity disorder (ADHD), inattentive type, 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 and Borderline personality disorder F60.3 [facility] [id number], [place] [address] 7[address] Jan, Paranoid schizophrenia F20.0 ; Posttraumatic stress disorder F43.10 ; Attention deficit hyperactivity disorder (ADHD), inattentive type, 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 and Borderline personality disorder F60.3 [facility] [id number] [address] Jan, Paranoid schizophrenia F20.0 [facility] [id number] [address] 6680 Jan, Paranoid schizophrenia F20.0 [facility] [address], [place] [address] Jan, Paranoid schizophrenia F20.0 ; Posttraumatic stress disorder F43.10 ; Attention deficit hyperactivity disorder (ADHD), inattentive type, 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 and Borderline personality disorder F60.3 [facility] [address], [place] [address] Dec, [facility] [address], [place] [address] Nov, Paranoid schizophrenia F20.0 ; Posttraumatic stress disorder F43.10 ; Attention deficit hyperactivity disorder (ADHD), inattentive type, 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 and Borderline personality disorder F60.3 [facility] [address] [address] Nov, [facility] [id number] [place] [address]48[address]- 2866 Oct, Paranoid schizophrenia F20.0 [facility] [id number] [place] [address] 49819- 9498 Oct, Paranoid schizophrenia F20.0 ; Posttraumatic stress disorder F43.10 ; Attention deficit hyperactivity disorder (ADHD), inattentive type, 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 ; Borderline personality disorder F60.3 and Other fdc ( 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 Z79.899 [facility] [address], [place] [address] 0[address] Oct, [facility] [id number], [place] [address] 1060 Oct, [facility] [address], [place] [address]- 75[address] Sep, [facility] [id number] [address] 5164 Sep, Paranoid schizophrenia F20.0 ; Posttraumatic stress disorder F43.10 ; Attention deficit hyperactivity disorder (ADHD), inattentive type, 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 and Borderline personality disorder F60.3 [facility] [address], [place] [address]- 6[address] Sep, Paranoid schizophrenia F20.0 [facility] [address], [place] [address] 5860 Aug, Paranoid schizophrenia F20.0 ; Posttraumatic stress disorder F43.10 ; Attention deficit hyperactivity disorder (ADHD), inattentive type, 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 and Borderline personality disorder F60.3 [facility] [address] [address]- 75[address] Aug, Paranoid schizophrenia F20.0 ; Posttraumatic stress disorder F43.10 ; Attention deficit hyperactivity disorder (ADHD), inattentive type, 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 and Borderline personality disorder F60.3 [facility] [address], [place] [address] Aug, [facility] [address], [place] [address]- 0258 Jul, Paranoid schizophrenia F20.0 ; Posttraumatic stress disorder F43.10 ; Attention deficit hyperactivity disorder (ADHD), inattentive type, 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 and Borderline personality disorder F60.3 [facility] [address], [place] [address]- 5[address] Jul, Paranoid schizophrenia F20.0 [facility] [address], [place] [address]- 1381 Jul, Paranoid schizophrenia F20.0 ; Posttraumatic stress disorder F43.10 ; Attention deficit hyperactivity disorder (ADHD), inattentive type, 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 and Borderline personality disorder F60.3 [facility] [id number], [place] [address]- 7[address] Jun, Paranoid schizophrenia F20.0 ; Posttraumatic stress disorder F43.10 ; Attention deficit hyperactivity disorder (ADHD), inattentive type, 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 and Borderline personality disorder F60.3 [facility] [id number] [address]- 14[address] May, 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 Z79.899 [facility] [id number] [address]- 4076 May, [facility] [id number], [place] [address]- 3596 May, [facility] [id number] [address]- 48[address] May, Attention deficit hyperactivity disorder (ADHD), inattentive type, 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 [facility] [id number] [place] [address]- 79[address] May, [facility] [id number] [address]- 9039 May, Attention deficit hyperactivity disorder (ADHD), inattentive type, 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 [facility] [id number] [address]- 7172 May, Paranoid schizophrenia F20.0 ; Posttraumatic stress disorder F43.10 ; Attention deficit hyperactivity disorder (ADHD), inattentive type, 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 and 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 Z79.899 [facility] [address], [place] [address]- 7[address] Apr, Paranoid schizophrenia F20.0 [facility] [id number], [place] [address]- 4428 Apr, Paranoid schizophrenia F20.0 ; Posttraumatic stress disorder F43.10 and Attention deficit hyperactivity disorder (ADHD), inattentive type, 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 [facility] [id number], [place] [address]- 6[address] February, [facility] [id number] [address]- 7386 February, Paranoid schizophrenia F20.0 ; Posttraumatic stress disorder F43.10 and Attention deficit hyperactivity disorder (ADHD), inattentive type, 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 [facility] [address], [place] [address]- 6[address] February, Paranoid schizophrenia F20.0 ; Posttraumatic stress disorder F43.10 and Attention deficit hyperactivity disorder (ADHD), inattentive type, 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 [facility] [address], [place] [address]- 3188 Jan, Paranoid schizophrenia F20.0 ; Posttraumatic stress disorder F43.10 and Attention deficit hyperactivity disorder (ADHD), inattentive type, 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 [facility] [id number] [place] [address] [id number] Dec, Dental examination Z01.20 [facility] [id number] [place] [address] [id number] Nov, Dental examination Z01.20 [facility] [id number] [place] [address] [id number] Nov, Dental examination Z01.20 [facility] [id number] [place] [address] [id number] Nov, Dental caries K02.9 [facility] [id number] [place] [address] 62242- 9766 13 Nov, 2016 High risk medication use Z79.899 [facility] [id number] [place] [address] 27360- 4109 Nov, Paranoid schizophrenia F20.0 ; Posttraumatic stress disorder F43.10 ; Attention deficit hyperactivity disorder (ADHD), inattentive type, 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 and Borderline personality disorder in adult F60.3 [facility] [address] [place] [address] [id number] Oct, Dental caries K02.9 [facility] [id number], [place] [address]- 9022 05 Sep, 2016 Paranoid schizophrenia F20.0 ; Posttraumatic stress disorder F43.10 and Attention deficit hyperactivity disorder (ADHD), inattentive type, 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 [facility] [address], [place] [address]- 4847 Aug, Paranoid schizophrenia F20.0 ; Posttraumatic stress disorder F43.10 and Attention deficit hyperactivity disorder (ADHD), inattentive type, 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 [facility] [address], [place] [address] Aug, Strep throat J02.0 and Cough R05 [facility] [address], [place] [address]- 1617 Aug, [facility] [id number] [place] [address] 28287- 5535 Jul, Paranoid schizophrenia F20.0 ; Posttraumatic stress disorder F43.10 and Attention deficit hyperactivity disorder (ADHD), inattentive type, 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 [facility] [id number] [place] [address] 81033- 9107 Jul, [facility] [id number] [place] [address] 94930- 4102 Jun, Paranoid schizophrenia F20.0 ; Posttraumatic stress disorder F43.10 and Attention deficit hyperactivity disorder (ADHD), inattentive type, 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 [facility] [address] [id number] Jun, Dental examination Z01.20 [facility] [id number] [place] [address] 02550- 6643 Jun, [facility] [id number] [place] [address] 63941- 7115 May, Paranoid schizophrenia F20.0 [facility] [id number] [place] [address] 59445- 8240 May, Paranoid schizophrenia F20.0 ; Posttraumatic stress disorder F43.10 and Attention deficit hyperactivity disorder (ADHD), inattentive type, 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 [facility] [id number], [place] [address]- 4[address] May, [facility] [address] [facility] [id number], [place] [address]- 4153 May, Paranoid schizophrenia F20.0 [facility] [address] [facility] [id number] [place] [address] 2546 May, [facility] [address] [facility] [id number] [place] [address]- 8711 May, Paranoid schizophrenia F20.0 [facility] [address] [facility] [id number] [place] [address]- 3377 May, Schizoaffective disorder, unspecified F25.9 [facility] [address] [facility] [id number] [place] [address]- 3153 May, Schizoaffective disorder, unspecified F25.9 [facility] [id number], [place] [address]- 2634 May, [facility] [address] [facility] [id number], [place] [address]- 9491 May, Paranoid schizophrenia F20.0 [facility] [address] [facility] [id number], [place] [address]- 0934 May, Paranoid schizophrenia F20.0 ; Posttraumatic stress disorder F43.10 and Attention deficit hyperactivity disorder (ADHD), inattentive type, 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 [facility] [address] [facility] [id number], [place] [address]- 4401 Mar, [facility] [address] [facility] [id number], [place] [address]- 3119 Mar, Paranoid schizophrenia F20.0 ; Posttraumatic stress disorder F43.10 and Attention deficit hyperactivity disorder (ADHD), inattentive type, 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 [facility] [address] [facility] [id number], [place] [address]- 4607 Mar, Paranoid schizophrenia F20.0 [facility] [id number], [place] [address]- 8354 Mar, Paranoid schizophrenia F20.0 ; Attention deficit hyperactivity disorder (ADHD), inattentive type, 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 and Posttraumatic stress disorder F43.10 [facility] [address] [facility] [id number], [place] [address]- 6465 Mar, [facility] [id number], [place] [address]- 1435 Mar, Paranoid schizophrenia F20.0 ; Posttraumatic stress disorder F43.10 and Attention deficit hyperactivity disorder (ADHD), inattentive type, 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 [facility] [address] [facility] [id number], [place] [address]- 3256 February, [facility] [id number], [place] [address]- 6019 February, [facility] [id number] [place] [address] 20425- 5128 February, [facility] [id number] [address]- 9532 February, [facility] [id number], [place] [address]- 2078 Jan, Paranoid schizophrenia F20.0 [facility] [address] [id number] [id number] Jan, Dental examination Z01.20 [facility] [id number] [place] [address] [id number] Jan, Dental caries K02.9 [facility] [id number] [place] [address] [id number] Jan, Dental examination Z01.20 [facility] [address] [address] Dec, Encounter for dental examination Z01.20 [facility] [id number] 4176 Dec, Paranoid schizophrenia F20.0 [facility] [address] [id number] [id number] 15 Dec, 2015 Dental examination Z01.20 [facility] [address], [place] [address]- 5109 Dec, [facility] [address], [place] [address]- 6015 Dec, Paranoid schizophrenia F20.0 ; Posttraumatic stress disorder F43.10 and Attention deficit hyperactivity disorder (ADHD), inattentive type, 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 [facility] [address], [place] [address]- 8500 Sep, [facility] [address], [place] [address]- 3664 Sep, Paranoid schizophrenia F20.0 ; Posttraumatic stress disorder F43.10 and Attention deficit hyperactivity disorder (ADHD), inattentive type, 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 [facility] [address], [place] [address]- 9461 Aug, Paranoid schizophrenia F20.0 [facility] [address], [place] [address]- 1783 Aug, [facility] [id number], [place] [address]- 4800 Aug, Posttraumatic stress disorder F43.10 ; Paranoid schizophrenia F20.0 and Attention deficit hyperactivity disorder (ADHD), inattentive type, 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 [facility] [address], [place] [address]- 9467 Jul, Bipolar disorder, unspecified F31.9 [facility] [id number] [place] [address] 28939- 6931 Jul, [facility] [id number] [place] [address] 20759- 9340 Jun, [facility] [id number] [place] [address] 11016- 2936 Jun, Schizoaffective disorder, chronic 295.72 ; Posttraumatic stress disorder 309.81 and Attention deficit disorder of childhood without mention of hyperactivity 314.00 [facility] [id number] [place] [address] 14487- 3222 May, [facility] [id number] [place] [address] 78079- 3187 May, [facility] [id number] [place] [address] 54892- 6349 May, Schizoaffective disorder, chronic 295.72 ; Posttraumatic stress disorder 309.81 ; Attention deficit disorder of childhood without mention of hyperactivity 314.00 and Bipolar disorder, unspecified 296.80 [facility] [address], [place] [address]- 9659 Apr, Schizoaffective disorder, chronic 295.72 [facility] [address], [place] [address]- 1817 Apr, [facility] [address] [place] [address] 40431- 5391 Apr, Schizoaffective disorder, chronic 295.72 ; Posttraumatic stress disorder 309.81 and Attention deficit disorder of childhood without mention of hyperactivity 314.00 [facility] [id number], [place] [address]- 2203 Mar, Disorganized schizophrenia, 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 [facility] [id number], [place] [address]- 2704 Mar, [facility] [address], [place] [address]- 1947 Mar, [facility] [id number] [place] [address] 38169- 8475 Mar, [facility] [id number], [place] [address]- 7287 Mar, [facility] [id number] [place] [address] 27882- 2554 February, Schizoaffective disorder, chronic 295.72 [facility] [id number] [address]- 1852 February, [facility] [id number] [place] [address] 26741- 6866 February, Attention deficit disorder of childhood without mention of hyperactivity 314.00 ; Posttraumatic stress disorder 309.81 and Schizoaffective disorder, chronic 295.72 [facility] [address], [place] [address]- 2235 Jan, [facility] [address], [place] [address]- 1461 14 Jan, 2015 [facility] [address], [place] [address]- 6660 Jan, [facility] [address], [place] [address]- 5781 Dec, [facility] [id number]- 9359 Dec, [facility] [address], [place] [address]- 0892 Dec, [facility] [id number] [place] [address], [place] [address]- 8673 Dec, [facility] [place] [facility] [address] [id number] [place] [address]- 0354 Dec, 2014 [facility] [place] [facility] [address] [id number] [place] [address]- 1991 Dec, 2014 [facility] [place] [facility] [address] [id number] [place] [address]- 9370 Dec, 2014 [facility] [place] [facility] [address] [id number] [place] [address]- 8493 Dec, [facility] [place] [facility] [address] [id number] [place] [address]- 7920 Nov, 2014 [facility] [place] [facility] [address] [facility] [id number] [place] [address]- 7762 Nov, 2014 [facility] [place] [facility] [address] [facility] [id number] [place] [address]- 3371 Nov, 2014 [facility] [place] [facility] [address] [facility] [id number] [place] [address]- 1208 Nov, 2014 [facility] [place] [facility] [address] [facility] [id number] [place] [address]- 3778 Nov, 2014 [facility] [place] [facility] [address] [facility] [id number] [place] [address]- 8107 Nov, 2014 [facility] [place] [facility] [address] [facility] [id number] [place] [address]- 2545 Nov, 2014 [facility] [place] [facility] [address] [id number] [place] [address]- 2544 Nov, 2014 [facility] [place] [facility] [address] [id number] [place] [address]- 7982 Nov, 2014 [facility] [place] [facility] [address] [facility] [id number] [place] [address]- 2541 Nov, 2014 [facility] [place] [facility] [address] [facility] [id number] [place] [address]- 7804 Oct, [facility] [place] [facility] [address] [id number] [place] [address]- 5713 Oct, [facility] [place] [facility] [address] [id number] [place] [address]- 1728 Oct, [facility] [place] [facility] [address] [id number] [place] [address]- 2712 Oct, [facility] [place] [facility] [address] [id number] [place] [address]- 6990 15 Oct, 2014 [facility] [place] [facility] [address] [id number] [place] [address]- 7305 Oct, [facility] [place] [facility] [address] [id number] [place] [address]- 3367 Oct, [facility] [place] [facility] [address] [id number] [place] [address]- 6629 17 Sep, 2014 [facility] [place] [facility] [address] [id number] [place] [address]- 3495 17 Sep, 2014 [facility] [place] [facility] [address] [id number] [place] [address]- 3726 15 Sep, 2014 [facility] [place] [facility] [address] [id number] [place] [address]- 5464 15 Sep, 2014 [facility] [place] [facility] [address] [id number] [place] [address]- 5590 20 Aug, 2014 [facility] [place] [facility] [address] [id number], [place] [address]- 0560 20 Aug, 2014 [facility] [place] [facility] [address] [id number] [place] [address]- 6573 14 Aug, 2014 [facility] [place] [facility] [address] [id number] [place] [address] 14 Aug, 2014 [facility] [place] [facility] [address] [id number] [place] [address]22 14 Aug, 2014 [facility] [place] [facility] [address] [id number] [place] [address] 5798 14 Aug, 2014 [facility] [place] [facility] [address] [id number] [place] [address] 3[address] 29 Jul, 2014 [facility] [place] [facility] [address] [id number] [place] [address]- 1372 29 Jul, 2014 [facility] [place] [facility] [address] [id number] [place] [address] 2732 Jul, [facility] [place] [facility] [address] [id number] [place] [address]- 8321 24 Jul, 2014 [facility] [place] [facility] [address] [id number] [place] [address] 4[address] Jul, [facility] [place] [facility] [address] [id number] [place] [address] 9007 15 Jul, 2014 [facility] [place] [facility] [address] [id number] [place] [address]- 4502 27 Jun, 2013 [facility] [place] [facility] [address] [id number] [place] [address]- 2542 27 Sep, 2013 [facility] [place] [facility] [address] [id number] [place] [address] 2542 26 Sep, 2013 [facility] [place] [facility] [address] [id number] [place] [address]- 254 26 Sep, 2013 [facility] [place] [facility] [address] [id number] [place] [address] 2546 26 Sep, 2013 [facility] [place] [facility] [address] [id number] [place] [address] 2545 26 Sep, 2013 [facility] [place] [facility] [address] [id number] [place] [address] 2546 16 Sep, 2013 [facility] [place] [facility] [address] [id number] [place] [address]- 2546 16 Sep, 2013 [facility] [place] [facility] [address] [id number] [place] [address] 2549 Jun, [facility] [place] [facility] [address] [id number] [place] [address]- 5922 Jun, [facility] [place] [facility] [address] [id number] [place] [address]- 1583 Jun, [facility] [place] [facility] [address] [id number] [place] [address]- 4630 May, [facility] [place] [facility] [address] [id number] [place] [address]- 8382 May, [facility] [place] [facility] [address] [id number] [place] [address]- 6086 May, [facility] [place] [facility] [address] [id number] [place] [address]- 7039 May, [facility] [place] [facility] [address] [id number] [place] [address]- 4410 May, [facility] [place] [facility] [address] [id number] [place] [address]- 6716 May, [facility] [place] [facility] [address] [id number] [place] [address]- 2503 May, [facility] [place] [facility] [address] [id number] [place] [address]- 9414 May, [facility] [place] [facility] [address] [id number] [place] [address]- 9222 May, [facility] [place] [facility] [address] [id number] [place] [address]- 5415 May, [facility] [place] [facility] [address] [id number] [place] [address]- 5078 Apr, [facility] [place] [facility] [address] [id number] [place] [address]- 5704 Apr, [facility] [place] [facility] [address] [id number] [place] [address]- 8857 Apr, [facility] [place] [facility] [address] [id number] [place] [address]- 2174 Apr, [facility] [place] [facility] [address] [id number] [place] [address]- 7082 Apr, [facility] [place] [facility] [address] [id number] [place] [address]- 4582 Apr, [facility] [place] [facility] [address] [id number] [place] [address] 1840 Apr, [facility] [place] [facility] [address] [id number] [place] [address]- 3750 Apr, [facility] [place] [facility] [address] [id number] [place] [address]- 3588 Apr, [facility] [place] [facility] [address] [id number] [place] [address]- 4336 Apr, [facility] [place] [facility] [address] [id number] [place] [address]- 5510 Mar, [facility] [place] [facility] [address] [id number] [place] [address]- 7558 Mar, [facility] [place] [facility] [address] [id number] [place] [address]- 6599 Mar, [facility] [place] [facility] [address] [id number] [place] [address]- 5583 Mar, [facility] [place] [facility] [address] [id number] [place] [address]- 0470 Mar, [facility] [place] [facility] [address] [id number] [place] [address]- 7907 Mar, [facility] [place] [facility] [address] [id number] [place] [address]- 9810 Mar, [facility] [place] [facility] [address] [id number] [place] [address]- 2900 Mar, [facility] [place] [facility] [address] [id number] [place] [address]- 9182 Mar, [facility] [place] [facility] [address] [id number] [place] [address]- 7520 13 Mar, 2014 [facility] [place] [facility] [address] [id number] [place] [address]- 9139 Mar, [facility] [place] [facility] [address] [id number] [place] [address]- 7728 Mar, [facility] [place] [facility] [address] [id number] [place] [address]- 2479 Mar, [facility] [place] [facility] [address] [id number] [place] [address]- 1066 Mar, [facility] [place] [facility] [address] [id number] [place] [address]- 5191 Mar, [facility] [place] [facility] [address] [id number] [place] [address]- 5672 Mar, [facility] [place] [facility] [address] [id number] [place] [address]- 3522 Mar, [facility] [place] [facility] [address] [id number] [place] [address]- 0278 Mar, [facility] [place] [facility] [address] [id number] [place] [address]- 9860 Mar, [facility] [place] [facility] [address] [id number] [place] [address]- 0695 Mar, [facility] [place] [facility] [address] [id number] [place] [address]- 4436 February, [facility] [place] [facility] [address] [id number] [place] [address]- 7630 February, [facility] [place] [facility] [address] [id number] [place] [address]- 3599 February, [facility] [place] [facility] [address] [id number] [place] [address]- 1172 February, [facility] [place] [facility] [address] [id number] [place] [address]- 1638 February, [facility] [address] [id number] [place] [address]- 5178 February, [facility] [place] [facility] [address] [id number] [place] [address]- 7643 February, [facility] [place] [facility] [address] [id number] [place] [address]- 0099 February, [facility] [place] [facility] [address] [id number] [place] [address]- 4836 February, [facility] [place] [facility] [address] [id number] [place] [address]- 1005 February, [facility] [place] [facility] [address] [id number] [place] [address]- 6317 February, [facility] [place] [facility] [address] [id number] [place] [address]- 9866 February, [facility] [place] [facility] [address] [id number] [place] [address]- 7316 February, [facility] [place] [facility] [address] [id number] [place] [address]- 2141 February, [facility] [place] [facility] [address] [id number] [place] [address]- 2487 February, [facility] [place] [facility] [address] [id number] [place] [address]- 0150 February, [facility] [place] [facility] [address] [id number] [place] [address]- 6671 February, [facility] [place] [facility] [address] [id number] [place] [address]- 7199 February, [facility] [place] [facility] [address] [id number] [place] [address]- 9373 February, [facility] [place] [facility] [address] [id number] [place] [address] February, [facility] [place] [facility] [address] [id number] [place] [address]- 1548 February, [facility] [place] [facility] [address] [id number] [place] [address]- 2655 30 Jan, 2014 [facility] [place] [facility] [address] [id number] [place] [address]- 4936 30 Jan, 2014 [facility] [place] [facility] [address] [id number] [place] [address]- 8010 Jan, [facility] [place] [facility] [address] [id number] [place] [address]- 9304 Jan, [facility] [place] [facility] [address] [id number] [place] [address]- 1291 Jan, [facility] [place] [facility] [address] [id number] [place] [address]- 5089 Jan, [facility] [place] [facility] [address] [id number] [place] [address]- 8533 Jan, [facility] [place] [facility] [address] [id number] [place] [address]- 3338 Jan, [facility] [place] [facility] [address] [id number] [place] [address]- 3697 Dec, [facility] [place] [facility] [address] [id number] [place] [address]- 4268 Dec, [facility] [place] [facility] [address] [id number] [place] [address]- 8279 20 Dec, 2013 [facility] [place] [facility] [address] [id number] [place] [address]- 6428 19 Dec, 2013 [facility] [place] [facility] [address] [id number] [place] [address]- 4336 19 Dec, 2013 [facility] [place] [facility] [address] [facility] [id number] [place] [address]- 5644 15 Dec, 2013 [facility] [place] [facility] [address] [id number] [place] [address]- 3188 15 Dec, 2013 [facility] [place] [facility] [address] [id number] [place] [address]- 4347 11 Dec, 2013 [facility] [place] [facility] [address] [id number] [place] [address]- 4378 Dec, [facility] [place] [facility] [address] [id number] [place] [address]- 3504 Dec, [facility] [place] [facility] [address] [id number] [place] [address]- 6323 Nov, [facility] [place] [facility] [address] [id number] [place] [address]- 4576 Nov, [facility] [place] [facility] [address] [id number] [place] [address]- 1309 Nov, [facility] [place] [facility] [address] [id number] [place] [address]- 5651 Nov, [facility] [place] [facility] [address] [id number] [place] [address]- 3757 Nov, [facility] [place] [facility] [address] [id number] [place] [address]- 8232 Oct, [facility] [place] [facility] [address] [id number] [place] [address]- 5879 Oct, [facility] [place] [facility] [address] [id number] [place] [address]- 5435 Oct, [facility] [place] [facility] [address] [id number] [place] [address]- 2506 Sep, [facility] [place] [facility] [address] [id number] [place] [address]- 6714 Sep, [facility] [place] [facility] [address] [id number] [place] [address]- 7925 Sep, [facility] [place] [facility] [address] [id number] [place] [address]- 2151 Sep, [facility] [place] [facility] [address] [id number], [place] [address]- 2268 Aug, [facility] [place] [facility] [address] [id number] [place] [address]- 3232 Aug, [facility] [place] [facility] [address] [id number] [place] [address]- 8864 Jul, [facility] [place] [facility] [address] [id number] [place] [address]- 0345 Jul, [facility] [place] [facility] [address] [id number] [place] [address]- 8385 Jul, [facility] [place] [facility] [address] [id number] [place] [address]- 3841 Jul, [facility] [place] [facility] [address] [id number] [place] [address]- 9459 Jul, [facility] [place] [facility] [address] [id number] [place] [address]- 3821 Jun, [facility] [place] [facility] [address] [id number] [place] [address]- 1248 25 Jun, 2013 [facility] [place] [facility] [address] [id number] [place] [address]- 2587 19 Jun, 2013 [facility] [place] [facility] [address] [id number] [place] [address]- 9137 18 Jun, 2013 [facility] [place] [facility] [address] [id number], [place] [address]- 1500 16 Jun, 2013 [facility] [place] [facility] [address] [id number], [place] [address]- 4567 12 Jun, 2013 [facility] [place] [facility] [address] [id number] [place] [address]- 6994 11 Jun, 2013 [facility] [place] [facility] [address] [id number] [place] [address]- 5784 30 May, 2013 [facility] [place] [facility] [address] [id number] [place] [address]- 0090 May, [facility] [place] [facility] [address] [id number] [place] [address]- 5901 Apr, [facility] [address] [id number] [place] [address]- 8524 Apr, [facility] [address] [id number] [place] [address]- 4230 Apr, [facility] [address] [id number] [place] [address]- 3856 Mar, [facility] [address] [id number] [place] [address]- 5388 Mar, [facility] [address] [id number] [place] [address]- 2003 February, [facility] [address] [id number] [place] [address]- 8855 February, [facility] [address] [id number] [place] [address]- 4347 February, [facility] [address] [id number] [place] [address]- 9618 February, [facility] [address] [id number] [place] [address]- 0945 Jan, [facility] [address] [id number] [place] [address]- 7913 17 Jan, 2013 [facility] [address] [id number] [place] [address]- 4226 16 Jan, 2013 [facility] [address] [id number] [place] [address]- 0856 29 Dec, 2012 [facility] [address] [id number] [place] [address]- 7265 Dec, [facility] [address] [id number] [place] [address]- 2546 Dec, [facility] [address] [id number] [place] [address]- 0790 Dec, [facility] [address] [id number] [place] [address]- 8005 Nov, [facility] [place] [facility] [address] [id number] [place] [address]- 3176 Nov, [facility] [place] [facility] [address] [id number] [place] [address]- 6178 Oct, [facility] [place] [facility] [address] [id number] [place] [address]- 5631 Oct, [facility] [place] [facility] [address] [id number] [place] [address]- 8311 Oct, [facility] [place] [facility] [address] [id number] [place] [address]- 1502 Oct, [facility] [place] [facility] [address] [id number] [place] [address]- 7824 Aug, [facility] [place] [facility] [address] [id number] [place] [address]- 1639 Aug, [facility] [place] [facility] [address] [id number] [place] [address]- 0267 Jun, [facility] [place] [facility] [address] [id number] [place] [address]- 7585 May, [facility] [place] [facility] [address] [id number], [place] [address]- 4726 May, [facility] [place] [facility] [address] [id number], [place] [address]- 8369 Apr, [facility] [place] [facility] [address] [id number] [place] [address]- 2369 Apr, [facility] [place] [facility] [address] [id number] [place] [address]- 8746 Apr, [facility] [place] [facility] [address] [id number] [place] [address]- 1364 Mar, [facility] [place] [facility] [address] [id number] [place] [address]- 4135 19 Mar, 2012 [facility] [address] [id number] [place] [address]- 9242 13 Mar, 2012 [facility] [place] [facility] [address] [id number] [place] [address]- 9881 Mar, [facility] [address] [id number] [place] [address]- 1033 04 Mar, 2012 [facility] [place] [facility] [address] [id number] [place] [address]- 1345 February, [facility] [address] [id number] [place] [address]- 3455 February, [facility] [address] [id number] [place] [address]- 8808 February, [facility] [address] [id number] [place] [address]- 5748 February, [facility] [address] [id number] [place] [address]- 0462 February, [facility] [address] [id number] [place] [address]- 6209 February, [facility] [address] [id number] [place] [address]- 8756 February, [facility] [address] [id number] [place] [address]- 7642 25 Jan, 2012 [facility] [place] [facility] [address] [id number] [place] [address]- 2085 18 Jan, 2012 [facility] [place] [facility] [address] [id number] [place] [address]- 4648 17 Jan, 2012 [facility] [place] [facility] [address] [id number] [place] [address]- 6613 13 Jan, 2012 [facility] [place] [facility] [address] [id number] [place] [address]- 8936 10 Jan, 2012 [facility] [place] [facility] [address] [id number] [place] [address]- 8481 04 Jan, 2012 [facility] [place] [facility] [address] [id number] [place] [address]- 6096 30 Dec, 2011 [facility] [place] [facility] [address] [id number] [place] [address]- 0246 24 Dec, 2011 [facility] [place] [facility] [address] [id number] [place] [address]- 8166 20 Dec, 2011 [facility] [place] [facility] [address] [id number] [place] [address]- 2982 13 Dec, 2011 [facility] [place] [facility] [address] [id number] [place] [address]- 4878 06 Dec, 2011 [facility] [place] [facility] [address] [id number] [place] [address]- 8231 Nov, [facility] [place] [facility] [address] [id number] [place] [address]- 9703 Nov, [facility] [place] [facility] [address] [id number] [place] [address]- 8668 Nov, [facility] [place] [facility] [address] [id number] [place] [address]- 7650 14 Nov, 2011 [facility] [place] [facility] [address] [id number] [place] [address]- 0034 Nov, [facility] [place] [facility] [address] [id number] [place] [address]- 2176 Nov, [facility] [place] [facility] [address] [id number] [place] [address]- 7931 Oct, [facility] [place] [facility] [address] [id number] [place] [address]- 2646 Oct, [facility] [place] [facility] [address] [id number] [place] [address]- 5176 Oct, [facility] [place] [facility] [address] [id number] [place] [address] Oct, [facility] [address] [id number] [place] [address] Oct, [facility] [place] [facility] [address] [id number] [place] [address] Sep, [facility] [place] [facility] [address] [id number] [place] [address] Sep, [facility] [place] [facility] [address] [id number] [place] [address] 20 Sep, 2011 [facility] [address] [id number] [place] [address] 14 Sep, 2011 [facility] [place] [facility] [address] [id number] [place] [address] 14 Sep, 2011 [facility] [address] [id number] [place] [address] Sep, [facility] [place] [facility] [address] [id number] [place] [address] Sep, [facility] [place] [facility] [address] [id number] [place] [address] Sep, [facility] [place] [facility] [address] [id number] [place] [address] Sep, [facility] [place] [facility] [address] [id number] [place] [address] Aug, [facility] [place] [facility] [address] [id number] [place] [address] Aug, [facility] [place] [facility] [address] [id number] [place] [address] Aug, [facility] [place] [facility] [address] [id number] [place] [address] Aug, [facility] [place] [facility] [address] [id number] [place] [address] Aug, [facility] [place] [facility] [address] [id number] [place] [address] Aug, [facility] [place] [facility] [address] [id number] [place] [address] Aug, [facility] [place] [facility] [address] [id number] [place] [address] Aug, [facility] [place] [facility] [address] [id number] [place] [address] Aug, [facility] [place] [facility] [address] [id number] [place] [address] Aug, [facility] [place] [facility] [address] [id number] [place] [address] Aug, [facility] [place] [facility] [address] [id number] [place] [address] Aug, [facility] [place] [facility] [address] [id number] [place] [address] Jul, [facility] [place] [facility] [address] [id number] [place] [address] Jul, [facility] [place] [facility] [address] [id number] [place] [address] 24 Jul, 2011 [facility] [place] [facility] [address] [id number] [place] [address] Jul, [facility] [place] [facility] [address] [id number] [place] [address] Jul, [facility] [place] [facility] [address] [id number] [place] [address] 19 Jul, 2011 [facility] [place] [facility] [address] [id number] [place] [address] 18 Jul, 2011 [facility] [place] [facility] [address] [id number] [place] [address] 11 Jul, 2011 [facility] [place] [facility] [address] [id number] [place] [address] Jul, [facility] [address] [facility] [id number] [address] Jul, [facility] [id number] [address] Nov, [facility] [address] [id number] [address] Aug, [facility] [id number] [address] Aug, [facility] [id number] [address] Aug, [facility] [id number] [address] Aug, [facility] [address] [id number] [address] Jul, IMMUNIZATIONS No Known Immunizations SOCIAL HISTORY Never Assessed REASON FOR VISIT PA for Guanfacine ER PLAN OF CARE VITAL SIGNS MEDICATIONS Unknown [...] Suicide attempt by hanging 06/14/2016 Hospitalization History [facility] 01/30/2018-02/10/2008
--- OUTSIDE RECORDS SUMMARY | 2018-08-15 20:50 | XMS REPORT ---
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 999266726 Problem Borderline personality disorder F60.3 Active 55247389 Problem High risk medication use Z79.899 Active 035165607 Problem Schizoaffective disorder, unspecified F25.9 Active 70861672 Problem Paranoid schizophrenia F20.0 Active 41155200 Problem Posttraumatic stress disorder F43.10 Active 53176487 Problem Attention deficit hyperactivity disorder (ADHD), inattentive type, 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 42194768 Problem Posttraumatic stress disorder 309.81 Active 84417841 Problem Obsessive-compulsive disorders 300.3 Active 965536603 Problem Generalized anxiety disorder 300.02 Active 37692455 Problem Attention deficit disorder of childhood without mention of hyperactivity 314.00 Active 32592201 Problem Bipolar disorder, unspecified 296.80 Active 56488467 ALLERGIES Substance Reaction Event Type Date Status Latuda agitation Drug Allergy Jul, Active Penicillamine bronchospasm and rash Drug Allergy Jul, Active Cephalexin visual disturbances Drug Allergy Jul, Active Ceftin visual disturbance Drug Allergy Jul, Active Biaxin bronchospasm Drug Allergy Jul, Active Cymbalta 30 Mg Capsule, Delayed Release(e.c.) nausea Non Drug Allergy Jul Active Brintellix 10 Mg Tablet nausea and vomiting Non Drug Allergy Jul, Active ENCOUNTERS Encounter Location Date Diagnosis [facility] [address] [facility] [id number] [address] Mar, [facility] [address] [address] February, [facility] [id number] [place] [address]01[address] 7670 February, Paranoid schizophrenia F20.0 ; Posttraumatic stress disorder F43.10 ; Attention deficit hyperactivity disorder (ADHD), inattentive type, 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 and Borderline personality disorder F60.3 [facility] [address] [address] February, [facility] [address] [address] 9[address] February, Paranoid schizophrenia F20.0 [facility] [address] [address] 5[address] February, Paranoid schizophrenia F20.0 [facility] [address] [address] 6485 February, Paranoid schizophrenia F20.0 ; Posttraumatic stress disorder F43.10 ; Attention deficit hyperactivity disorder (ADHD), inattentive type, 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 and Borderline personality disorder F60.3 [facility] [address] [address] Jan, Paranoid schizophrenia F20.0 ; Posttraumatic stress disorder F43.10 ; Attention deficit hyperactivity disorder (ADHD), inattentive type, 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 and Borderline personality disorder F60.3 [facility] [address] [address]- 114[address] Jan, Paranoid schizophrenia F20.0 [facility] [address] [address]- 1684 Jan, Paranoid schizophrenia F20.0 [facility] [id number] [address] Jan, Paranoid schizophrenia F20.0 ; Posttraumatic stress disorder F43.10 ; Attention deficit hyperactivity disorder (ADHD), inattentive type, 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 and Borderline personality disorder F60.3 [facility] [address] [address] Dec, [facility] [address] [address]- 5926 Nov, Paranoid schizophrenia F20.0 ; Posttraumatic stress disorder F43.10 ; Attention deficit hyperactivity disorder (ADHD), inattentive type, 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 and Borderline personality disorder F60.3 [facility] [address] [address] Nov, [facility] [id number] [place] [address] 09160- 6982 Oct, Paranoid schizophrenia F20.0 [facility] [address] [address] 0248 Oct, Paranoid schizophrenia F20.0 ; Posttraumatic stress disorder F43.10 ; Attention deficit hyperactivity disorder (ADHD), inattentive type, 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 ; Borderline personality disorder F60.3 and Other care home ( 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 Z79.899 [facility] [address] [address] Oct, [facility] [id number] [address] 97[address] Oct, [facility] [address] [address]- 5[address] Sep, [facility] [id number] [address]- 9824 Sep, Paranoid schizophrenia F20.0 ; Posttraumatic stress disorder F43.10 ; Attention deficit hyperactivity disorder (ADHD), inattentive type, 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 and Borderline personality disorder F60.3 [facility] [id number] [address]- 5969 Sep, Paranoid schizophrenia F20.0 [facility] [address] [address]- 5437 Aug, Paranoid schizophrenia F20.0 ; Posttraumatic stress disorder F43.10 ; Attention deficit hyperactivity disorder (ADHD), inattentive type, 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 and Borderline personality disorder F60.3 [facility] [address] [address]- 0458 Aug, Paranoid schizophrenia F20.0 ; Posttraumatic stress disorder F43.10 ; Attention deficit hyperactivity disorder (ADHD), inattentive type, 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 and Borderline personality disorder F60.3 [facility] [address] [address]- 47[address] Aug, [facility] [address] [place] [address] 11786- 8747 Jul, Paranoid schizophrenia F20.0 ; Posttraumatic stress disorder F43.10 ; Attention deficit hyperactivity disorder (ADHD), inattentive type, 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 and Borderline personality disorder F60.3 [facility] [address] [address]- 6[address] Jul, Paranoid schizophrenia F20.0 [facility] [address] [place] [address] 76766- 2231 Jul, Paranoid schizophrenia F20.0 ; Posttraumatic stress disorder F43.10 ; Attention deficit hyperactivity disorder (ADHD), inattentive type, 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 and Borderline personality disorder F60.3 [facility] [address] [address]- 0254 Jun, Paranoid schizophrenia F20.0 ; Posttraumatic stress disorder F43.10 ; Attention deficit hyperactivity disorder (ADHD), inattentive type, 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 and Borderline personality disorder F60.3 [facility] [address] [address]- 3[address] May, Other care home (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 Z79.899 [facility] [address] [address]- 2777 May, [facility] [address] [address]- 2085 May, [facility] [address] [address]- 0380 May, Attention deficit hyperactivity disorder (ADHD), inattentive type, 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 [facility] [address] [address]- 0977 May, [facility] [address] [address]- 2053 May, Attention deficit hyperactivity disorder (ADHD), inattentive type, 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 [facility] [address] [address]- [address] May, Paranoid schizophrenia F20.0 ; Posttraumatic stress disorder F43.10 ; Attention deficit hyperactivity disorder (ADHD), inattentive type, 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 and 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 [facility] [address] [address]- 8518 Apr, Paranoid schizophrenia F20.0 [facility] [address] [address]- 2136 Apr, Paranoid schizophrenia F20.0 ; Posttraumatic stress disorder F43.10 and Attention deficit hyperactivity disorder (ADHD), inattentive type, 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 [facility] [address] [address]- 56[address] February, [facility] [address] [address]- 77[address] February, Paranoid schizophrenia F20.0 ; Posttraumatic stress disorder F43.10 and Attention deficit hyperactivity disorder (ADHD), inattentive type, 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 [facility] [id number] [address]- 3068 February, Paranoid schizophrenia F20.0 ; Posttraumatic stress disorder F43.10 and Attention deficit hyperactivity disorder (ADHD), inattentive type, 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 [facility] [address] [facility] [id number] [place] [address] [address] Jan, Paranoid schizophrenia F20.0 ; Posttraumatic stress disorder F43.10 and Attention deficit hyperactivity disorder (ADHD), inattentive type, 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 [facility] [address] [id number] [id number] Dec, Dental examination Z01.20 [facility] [address] [id number] [place] [id number] Nov, Dental examination Z01.20 [facility] [address] [id number] [place] [id number] Nov, Dental examination Z01.20 [facility] [address] [id number] [place] [address] Nov, Dental caries K02.9 [facility] [address] [address]- 5821 Nov, High risk medication use Z79.899 [facility] [address] [address]- 6036 Nov, Paranoid schizophrenia F20.0 ; Posttraumatic stress disorder F43.10 ; Attention deficit hyperactivity disorder (ADHD), inattentive type, 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 and Borderline personality disorder in adult F60.3 [facility] [address] [id number] [address] Oct, Dental caries K02.9 [facility] [address] [address] Sep, Paranoid schizophrenia F20.0 ; Posttraumatic stress disorder F43.10 and Attention deficit hyperactivity disorder (ADHD), inattentive type, 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 [facility] [id number] Aug, Paranoid schizophrenia F20.0 ; Posttraumatic stress disorder F43.10 and Attention deficit hyperactivity disorder (ADHD), inattentive type, 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 [facility] [address] [address] Aug, Strep throat J02.0 and Cough R05 [facility] [id number] [place] [address]60- 8217 Aug, [facility] [id number] [place] [address] 00379- 5426 Jul, Paranoid schizophrenia F20.0 ; Posttraumatic stress disorder F43.10 and Attention deficit hyperactivity disorder (ADHD), inattentive type, 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 [facility] [address] [place] [address] 20668- 9674 Jul, [facility] [id number] [place] [address] 72911- 0371 Jun, Paranoid schizophrenia F20.0 ; Posttraumatic stress disorder F43.10 and Attention deficit hyperactivity disorder (ADHD), inattentive type, 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 [facility] [address] [place] [id number] Jun, Dental examination Z01.20 [facility] [id number] [place] [address] 64711- 3070 Jun, [facility] [id number] [place] [address] 50810- 4737 May, Paranoid schizophrenia F20.0 [facility] [address] [place] [address]32- 1984 May, Paranoid schizophrenia F20.0 ; Posttraumatic stress disorder F43.10 and Attention deficit hyperactivity disorder (ADHD), inattentive type, 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 [facility] [address] [place] [address] 78720- 0224 May, [facility] [id number] [place] [address] 84642- 4072 May, Paranoid schizophrenia F20.0 [facility] [id number] [place] [address] 58145- 2169 May, [facility] [address] [facility] [id number] [address]- 1913 May, Paranoid schizophrenia F20.0 [facility] [address] [facility] [id number] [place] [address]- 4993 May, Schizoaffective disorder, unspecified F25.9 [facility] [id number] [address]- 6644 May, Schizoaffective disorder, unspecified F25.9 [facility] [address] [id number] [address]- 0509 May, [facility] [id number] [address]- 7223 May, Paranoid schizophrenia F20.0 [facility] [id number] [address]- 2130 May, Paranoid schizophrenia F20.0 ; Posttraumatic stress disorder F43.10 and Attention deficit hyperactivity disorder (ADHD), inattentive type, 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 [facility] [id number] [address]- 7892 Mar, [facility] [address] [id number] [address]- 7842 Mar, Paranoid schizophrenia F20.0 ; Posttraumatic stress disorder F43.10 and Attention deficit hyperactivity disorder (ADHD), inattentive type, 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 [facility] [id number] [address]- 9805 Mar, Paranoid schizophrenia F20.0 [facility] [address] [id number] [address]- 5971 Mar, Paranoid schizophrenia F20.0 ; Attention deficit hyperactivity disorder (ADHD), inattentive type, 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 and Posttraumatic stress disorder F43.10 [facility] [address] [id number] [address]- 5940 Mar, [facility] [address] [address]- 0548 Mar, Paranoid schizophrenia F20.0 ; Posttraumatic stress disorder F43.10 and Attention deficit hyperactivity disorder (ADHD), inattentive type, 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 [facility] [address] [id number] [place] [address]- 7697 February, [facility] [id number] [place] [address] 27434- 2960 February, [facility] [address] [id number] [place] [address] 66566- 1209 February, [facility] [address] [id number] [place] [address] 76113- 1894 February, [facility] [address] [id number] [place] [address] 00293- 6986 Jan, Paranoid schizophrenia F20.0 [facility] [address] [id number] [place] [address] [id number] Jan, Dental examination Z01.20 [facility] [id number] [place] [address] [id number] Jan, Dental caries K02.9 [facility] [address] [id number] [place] [address] [id number] Jan, Dental examination Z01.20 [facility] [id number] [place] [address] [id number] Dec, Encounter for dental examination Z01.20 [facility] [address] [id number] [place] [address]- 5550 Dec, Paranoid schizophrenia F20.0 [facility] [address] [id number] [place] [address] [id number] Dec, Dental examination Z01.20 [facility] [address] [id number] [place] [address]- 8794 Dec, [facility] [address] [id number] [address]- 5601 Dec, Paranoid schizophrenia F20.0 ; Posttraumatic stress disorder F43.10 and Attention deficit hyperactivity disorder (ADHD), inattentive type, 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 [facility] [address] [address]- 2940 Nov, Schizoaffective disorder, unspecified F25.9 [facility] [address] [address]- 6381 Oct, Paranoid schizophrenia F20.0 [facility] [address] [address]- 3357 Oct, [facility] [address] [address]- 2563 Sep, Paranoid schizophrenia F20.0 ; Posttraumatic stress disorder F43.10 and Attention deficit hyperactivity disorder (ADHD), inattentive type, 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 [facility] [address] [address]- 6696 Sep, [facility] [address] [address]- 6433 Sep, Paranoid schizophrenia F20.0 ; Posttraumatic stress disorder F43.10 and Attention deficit hyperactivity disorder (ADHD), inattentive type, 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 [facility] [address] [address]- 1163 Aug, Paranoid schizophrenia F20.0 [facility] [address] [address]- 8263 Aug, [facility] [address] [address]- 3283 Aug, Posttraumatic stress disorder F43.10 ; Paranoid schizophrenia F20.0 and Attention deficit hyperactivity disorder (ADHD), inattentive type, 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 [facility] [address] [address]- 0117 Jul, Bipolar disorder, unspecified F31.9 [facility] [address] [address]- 2537 Jul, [facility] [id number] [place] [address] 290504- 0275 Jun, [facility] [address] [place] [address] 08331- 2022 Jun, Schizoaffective disorder, chronic 295.72 ; Posttraumatic stress disorder 309.81 and Attention deficit disorder of childhood without mention of hyperactivity 314.00 [facility] [id number] [place] [address] 64716- 1706 May, [facility] [id number] [place] [address] 85638- 2847 May, [facility] [id number] [place] [address] 91551- 6501 May, Schizoaffective disorder, chronic 295.72 ; Posttraumatic stress disorder 309.81 ; Attention deficit disorder of childhood without mention of hyperactivity 314.00 and Bipolar disorder, unspecified 296.80 [facility] [id number] [place] [address] 67433- 8472 Apr, Schizoaffective disorder, chronic 295.72 [facility] [id number] [place] [address] 13186- 9811 Apr, [facility] [id number] [place] [address] 18696- 8907 Apr, Schizoaffective disorder, chronic 295.72 ; Posttraumatic stress disorder 309.81 and Attention deficit disorder of childhood without mention of hyperactivity 314.00 [facility] [id number] [place] [address] 69300- 9217 Mar, Disorganized schizophrenia, 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 [facility] [address] [address]- 2214 Mar, [facility] [id number] [place] [address] 69462- 2546 Mar, [facility] [address] [address]- 2365 Mar, [facility] [address] [address]- 5256 Mar, [facility] [address] [address]- 7796 February, Schizoaffective disorder, chronic 295.72 [facility] [id number] [place] [address] 42299- 2426 February, [facility] [id number] [place] [address] 98437- 5356 February, Attention deficit disorder of childhood without mention of hyperactivity 314.00 ; Posttraumatic stress disorder 309.81 and Schizoaffective disorder, chronic 295.72 [facility] [address] [address]- 0376 Jan, [facility] [address] [address]- 7980 Jan, [facility] [address] [address]- 4671 Jan, [facility] [address] [address]- 1896 Dec, [facility] [address] [address]- 7706 Dec, [facility] [address] [address]- 2546 Dec, [facility] [address] [address]- 9136 Dec, [facility] [address] [address]- 2546 Dec, [facility] [address] [address]- 1286 Dec, [facility] [place] [facility] [address] [id number] [place] [address]- 7940 Dec, [facility] [place] [facility] [address] [id number] [place] [address]- 0539 Dec, [facility] [place] [facility] [address] [id number] [place] [address]- 4298 Nov, [facility] [place] [facility] [address] [id number] [place] [address]- 5869 Nov, [facility] [place] [facility] [address] [id number] [place] [address]- 2292 Nov, [facility] [place] [facility] [address] [id number] [place] [address]- 0764 Nov, 2014 [facility] [place] [facility] [address] [id number] [place] [address]- 8065 Nov, [facility] [place] [facility] [address] [id number] [place] [address]- 0914 Nov, 2014 [facility] [place] [facility] [address] [id number] [place] [address]- 5584 Nov, [facility] [place] [facility] [address] [id number] [place] [address]- 6091 Nov, [facility] [place] [facility] [address] [id number] [place] [address]- 9704 Nov, [facility] [place] [facility] [address] [id number] [place] [address]- 2544 Nov, [facility] [place] [facility] [address] [id number] [place] [address] Oct, [facility] [place] [facility] [address] [id number] [place] [address] Oct, [facility] [place] [facility] [address] [id number] [place] [address] Oct, [facility] [place] [facility] [address] [id number] [place] [id number]- 8336 15 Oct, 2014 [facility] [address] [id number] [place] [address] 9078 15 Oct, 2014 [facility] [place] [facility] [address] [id number] [place] [address]- 5003 13 Oct, 2014 [facility] [address] [id number] [place] [address] 2046 13 Oct, 2014 [facility] [place] [facility] [address] [id number] [place] [address]- 1795 17 Sep, 2014 [facility] [address] [id number] [place] [address]- 5264 17 Sep, 2014 [facility] [place] [facility] [address] [id number] [place] [address]- 0372 15 Sep, 2014 [facility] [address] [id number] [place] [address]- 9249 15 Sep, 2014 [facility] [address] [id number] [place] [address]- 3103 20 Aug, 2014 [facility] [place] [facility] [address] [id number] [place] [address]- 3728 20 Aug, 2014 [facility] [place] [facility] [address] [id number] [place] [address]- 4334 14 Aug, 2014 [facility] [place] [facility] [address] [id number] [place] [address]- 1969 14 Aug, 2014 [facility] [place] [facility] [address] [id number] [place] [address]- 1615 14 Aug, 2014 [facility] [place] [facility] [address] [id number] [place] [address]- 3536 14 Aug, 2014 [facility] [place] [facility] [address] [id number] [place] [address]- 8234 Jul, [facility] [place] [facility] [address] [id number] [place] [address]- 1674 29 Jul, 2014 [facility] [place] [facility] [address] [id number] [place] [address]- 5915 24 Jul, 2014 [facility] [place] [facility] [address] [id number] [place] [address]- 1515 24 Jul, 2014 [facility] [place] [facility] [address] [id number] [place] [address]- 3493 15 Jul, 2014 [facility] [place] [facility] [address] [id number] [place] [address]- 3304 15 Jul, 2014 [facility] [place] [facility] [address] [id number] [place] [address]- 2180 27 Sep, 2013 [facility] [place] [facility] [address] [id number] [place] [address]- 3305 27 Jun, 2013 [facility] [place] [facility] [address] [id number] [place] [address]- 7285 26 Jun, 2013 [facility] [place] [facility] [address] [id number] [place] [address]- 1733 26 Jun, 2013 [facility] [place] [facility] [address] [id number] [place] [address]- 2543 26 Jun, 2013 [facility] [place] [facility] [address] [id number] [place] [address]- 1371 26 Jun, 2013 [facility] [place] [facility] [address] [id number] [place] [address]- 254 16 Sep, 2013 [facility] [place] [facility] [address] [id number] [place] [address]- 2549 16 Sep, 2013 [facility] [place] [facility] [address] [id number] [place] [address] 2543 16 Sep, 2013 [facility] [place] [facility] [address] [id number] [place] [address]- 2543 16 Sep, 2013 [facility] [place] [facility] [address] [id number] [place] [address]- 3368 04 Sep, 2013 [facility] [place] [facility] [address] [id number] [place] [address]- 4252 May, [facility] [place] [facility] [address] [id number] [place] [address]- 3324 May, [facility] [place] [facility] [address] [id number] [place] [address]- 6317 May, [facility] [place] [facility] [address] [id number] [place] [address]- 4255 May, [facility] [place] [facility] [address] [id number] [place] [address]- 5057 May, [facility] [place] [facility] [address] [id number] [place] [address]- 7916 May, [facility] [place] [facility] [address] [id number] [place] [address]- 1684 May, [facility] [place] [facility] [address] [id number] [place] [address]- 7770 May, [facility] [place] [facility] [address] [id number] [place] [address]- 5936 May, [facility] [place] [facility] [address] [id number] [place] [address]- 2985 May, [facility] [place] [facility] [address] [id number] [place] [address]- 5387 Apr, [facility] [place] [facility] [address] [id number] [place] [address]- 2900 Apr, [facility] [place] [facility] [address] [id number] [place] [address]- 4215 Apr, [facility] [place] [facility] [address] [id number] [place] [address]- 0143 Apr, [facility] [place] [facility] [address] [id number] [place] [address]- 7603 Apr, [facility] [place] [facility] [address] [id number] [place] [address]- 2585 Apr, [facility] [place] [facility] [address] [id number] [place] [address]- 7217 17 Apr, 2014 [facility] [place] [facility] [address] [id number] [place] [address]- 4759 15 Apr, 2014 [facility] [place] [facility] [address] [id number] [place] [address]- 0103 15 Apr, 2014 [facility] [place] [facility] [address] [id number] [place] [address]- 7360 Apr, [facility] [place] [facility] [address] [id number] [place] [address]- 5801 Mar, [facility] [place] [facility] [address] [id number] [place] [address]- 1993 Mar, [facility] [place] [facility] [address] [id number] [place] [address]- 4399 Mar, [facility] [place] [facility] [address] [id number] [place] [address]- 9768 24 Mar, 2014 [facility] [place] [facility] [address] [id number] [place] [address]- 6569 Mar, [facility] [place] [facility] [address] [id number] [place] [address]- 6958 Mar, [facility] [place] [facility] [address] [id number] [place] [address]- 6646 18 Mar, 2014 [facility] [place] [facility] [address] [id number] [place] [address]- 4371 16 Mar, 2014 [facility] [place] [facility] [address] [id number] [place] [address]- 1115 16 Mar, 2014 [facility] [place] [facility] [address] [id number] [place] [address]- 5347 13 Mar, 2014 [facility] [place] [facility] [address] [id number] [place] [address]- 3612 13 Mar, 2014 [facility] [place] [facility] [address] [id number] [place] [address]- 5888 Mar, [facility] [place] [facility] [address] [id number] [place] [address]- 4087 Mar, [facility] [place] [facility] [address] [id number] [place] [address]- 2413 Mar, [facility] [place] [facility] [address] [id number] [place] [address]- 8106 Mar, [facility] [place] [facility] [address] [id number] [place] [address]- 9702 Mar, [facility] [place] [facility] [address] [id number] [place] [address]- 5812 Mar, [facility] [place] [facility] [address] [id number] [place] [address]- 4047 Mar, [facility] [place] [facility] [address] [id number] [place] [address]- 5553 Mar, [facility] [place] [facility] [address] [id number] [place] [address]- 8678 Mar, [facility] [place] [facility] [address] [id number] [place] [address]- 1326 February, [facility] [place] [facility] [address] [id number] [place] [address]- 6197 February, [facility] [place] [facility] [address] [id number] [place] [address]- 1059 February, [facility] [place] [facility] [address] [id number] [place] [address]- 0131 February, [facility] [place] [facility] [address] [id number] [place] [address]- 9486 February, [facility] [place] [facility] [address] [id number] [place] [address]- 8110 February, [facility] [place] [facility] [address] [id number] [place] [address]- 2506 February, [facility] [place] [facility] [address] [id number] [place] [address]- 1918 February, [facility] [address] [id number] [place] [address]- 3320 February, [facility] [place] [facility] [address] [id number] [place] [address]- 9957 February, [facility] [place] [facility] [address] [id number] [place] [address]- 4052 February, [facility] [place] [facility] [address] [id number] [place] [address]- 1121 February, [facility] [place] [facility] [address] [id number] [place] [address]- 9849 February, [facility] [place] [facility] [address] [id number] [place] [address]- 2155 February, [facility] [place] [facility] [address] [id number] [place] [address]- 6056 February, [facility] [place] [facility] [address] [id number] [place] [address]- 1050 February, [facility] [place] [facility] [address] [id number] [place] [address]- 0384 February, [facility] [place] [facility] [address] [id number] [place] [address]- 1105 February, [facility] [place] [facility] [address] [id number] [place] [address]- 0056 February, [facility] [place] [facility] [address] [id number] [place] [address]- 4252 February, [facility] [place] [facility] [address] [id number] [place] [address]- 3047 February, [facility] [place] [facility] [address] [id number] [place] [address]- 0753 Jan, [facility] [place] [facility] [address] [id number] [place] [address]- 1093 Jan, [facility] [place] [facility] [address] [id number] [place] [address]- 3759 18 Jan, 2014 [facility] [place] [facility] [address] [id number] [place] [address]- 5904 18 Jan, 2014 [facility] [place] [facility] [address] [id number] [place] [address]- 7661 18 Jan, 2014 [facility] [place] [facility] [address] [id number] [place] [address]- 1545 18 Jan, 2014 [facility] [place] [facility] [address] [id number] [place] [address]- 0281 10 Jan, 2014 [facility] [place] [facility] [address] [id number] [place] [address]- 4419 10 Jan, 2014 [facility] [place] [facility] [address] [id number] [place] [address]- 6591 21 Dec, 2013 [facility] [place] [facility] [address] [id number] [place] [address]- 8422 20 Dec, 2013 [facility] [place] [facility] [address] [id number] [place] [address]- 5779 20 Dec, 2013 [facility] [place] [facility] [address] [id number] [place] [address]- 7224 19 Dec, 2013 [facility] [place] [facility] [address] [id number] [place] [address]- 2712 19 Dec, 2013 [facility] [place] [facility] [address] [id number] [place] [address]- 5835 15 Dec, 2013 [facility] [place] [facility] [address] [id number] [place] [address]- 8128 15 Dec, 2013 [facility] [place] [facility] [address] [id number] [place] [address]- 2356 11 Dec, 2013 [facility] [place] [facility] [address] [id number] [place] [address]- 9426 10 Dec, 2013 [facility] [place] [facility] [address] [id number] [place] [address]- 4100 Dec, [facility] [place] [facility] [address] [id number] [place] [address]- 0118 Nov, [facility] [place] [facility] [address] [id number] [place] [address]- 0306 Nov, [facility] [place] [facility] [address] [facility] [id number] [place] [address]- 1896 Nov, [facility] [place] [facility] [address] [id number] [place] [address]- 7030 Nov, [facility] [place] [facility] [address] [id number] [place] [address]- 8625 Nov, [facility] [place] [facility] [address] [facility] [id number] [place] [address]- 2071 Oct, [facility] [place] [facility] [address] [facility] [id number] [place] [address]- 7424 Oct, [facility] [place] [facility] [address] [facility] [id number] [place] [address]- 3986 Oct, [facility] [place] [facility] [address] [facility] [id number] [place] [address]- 6401 Sep, [facility] [place] [facility] [address] [facility] [id number] [place] [address]- 8530 Sep, [facility] [place] [facility] [address] [facility] [id number] [place] [address]- 2173 Sep, [facility] [place] [facility] [address] [facility] [id number] [place] [address]- 6956 Sep, [facility] [place] [facility] [address] [facility] [id number] [place] [address]- 5777 Aug, [facility] [place] [facility] [address] [facility] [id number] [place] [address]- 9606 Aug, [facility] [place] [facility] [address] [facility] [id number] [place] [address]- 3166 Jul, [facility] [place] [facility] [address] [id number] [place] [address]- 5270 Jul, [facility] [place] [facility] [address] [id number] [place] [address]- 0854 Jul, [facility] [place] [facility] [address] [id number] [place] [address] 2546 Jul, [facility] [place] [facility] [address] [id number] [place] [address]- 9306 Jul, [facility] [place] [facility] [address] [id number] [place] [address]- 1792 Jun, [facility] [place] [facility] [address] [id number] [place] [address]- 7082 25 Jun, 2013 [facility] [place] [facility] [address] [id number] [place] [address]- 8553 19 Jun, 2013 [facility] [place] [facility] [address] [id number] [place] [address]- 4917 18 Jun, 2013 [facility] [place] [facility] [address] [id number] [place] [address]- 8816 16 Jun, 2013 [facility] [place] [facility] [address] [id number] [place] [address]- 4419 12 Jun, 2013 [facility] [place] [facility] [address] [id number] [place] [address]- 1226 Jun, [facility] [place] [facility] [address] [id number] [place] [address]- 2085 30 May, 2013 [facility] [place] [facility] [address] [id number] [place] [address] 2540 May, [facility] [place] [facility] [address] [id number] [place] [address]- 3676 Apr, [facility] [place] [facility] [address] [id number] [place] [address] 2546 Apr, [facility] [place] [facility] [address] [id number] [place] [address]- 5862 Apr, [facility] [address] [id number] [place] [address]- 7931 Mar, [facility] [place] [facility] [address] [id number] [place] [address]- 0236 Mar, [facility] [place] [facility] [address] [id number] [place] [address]- 3930 February, [facility] [place] [facility] [address] [id number] [place] [address]- 0282 February, [facility] [address] [id number] [place] [address]- 6952 February, [facility] [place] [facility] [address] [id number] [place] [address]- 7629 February, [facility] [place] [facility] [address] [id number] [place] [address]- 0977 Jan, [facility] [place] [facility] [address] [id number] [place] [address]- 4764 Jan, [facility] [place] [facility] [address] [id number] [place] [address]- 9869 16 Jan, 2013 [facility] [place] [facility] [address] [id number] [place] [address]- 5747 Dec, [facility] [place] [facility] [address] [id number] [place] [address]- 6909 Dec, [facility] [place] [facility] [address] [id number] [place] [address]- 6365 Dec, [facility] [place] [facility] [address] [id number] [place] [address]- 1083 Dec, [facility] [place] [facility] [address] [id number] [place] [address]- 7063 Nov, [facility] [place] [facility] [address] [id number] [place] [address]- 1518 Nov, [facility] [place] [facility] [address] [id number] [place] [address]- 6927 Oct, [facility] [place] [facility] [address] [id number] [place] [address]- 1901 Oct, [facility] [place] [facility] [address] [id number] [place] [address]- 4619 Oct, [facility] [place] [facility] [address] [id number] [place] [address]- 7598 Oct, [facility] [place] [facility] [address] [id number] [place] [address]- 5196 Aug, [facility] [place] [facility] [address] [id number] [place] [address]- 7033 Aug, [facility] [place] [facility] [address] [id number] [place] [address]- 4028 Jun, [facility] [place] [facility] [address] [id number] [place] [address]- 3860 May, [facility] [place] [facility] [address] [id number] [place] [address]- 1911 May, [facility] [place] [facility] [address] [id number] [place] [address]- 9654 Apr, [facility] [place] [facility] [address] [id number] [place] [address]- 6578 Apr, [facility] [place] [facility] [address] [id number] [place] [address]- 1363 Apr, [facility] [place] [facility] [address] [id number] [place] [address]- 8944 Mar, [facility] [place] [facility] [address] [id number] [place] [address]- 0513 Mar, [facility] [place] [facility] [address] [id number] [place] [address]- 6643 Mar, [facility] [place] [facility] [address] [id number] [place] [address]- 8338 Mar, [facility] [place] [facility] [address] [id number] [place] [address]- 6228 Mar, [facility] [address] [id number] [place] [address]- 9883 February, [facility] [address] [id number] [place] [address]- 2404 February, [facility] [address] [id number] [place] [address]- 3189 February, [facility] [address] [id number] [place] [address]- 2710 February, [facility] [address] [id number] [place] [address]- 2592 February, [facility] [address] [id number] [place] [address]- 7956 February, [facility] [address] [id number] [place] [address]- 8357 February, [facility] [address] [id number] [place] [address]- 2067 Jan, [facility] [address] [id number] [place] [address]- 4749 Jan, [facility] [address] [id number] [place] [address]- 7059 Jan, [facility] [address] [id number] [place] [address]- 3328 13 Jan, 2012 [facility] [place] [facility] [address] [id number] [place] [address]- 1772 Jan, [facility] [place] [facility] [address] [id number] [place] [address]- 1231 Jan, [facility] [address] [id number] [place] [address]- 0225 Dec, [facility] [place] [facility] [address] [id number] [place] [address]- 5207 24 Dec, 2011 [facility] [address] [id number] [place] [address]- 7446 Dec, [facility] [place] [facility] [address] [id number] [place] [address]- 0416 Dec, [facility] [place] [facility] [address] [id number] [place] [address]- 7276 Dec, [facility] [place] [facility] [address] [id number] [place] [address] 28 Nov, 2011 [facility] [place] [facility] [address] [id number] [place] [address] Nov, [facility] [place] [facility] [address] [id number] [place] [address] Nov, [facility] [address] [id number] [place] [address] 14 Nov, 2011 [facility] [place] [facility] [address] [id number] [place] [address] Nov, [facility] [place] [facility] [address] [id number] [place] [address] Nov, [facility] [place] [facility] [address] [id number] [place] [address] Oct, [facility] [address] [id number] [place] [address] Oct, [facility] [place] [facility] [address] [id number] [place] [address] Oct, [facility] [place] [facility] [address] [id number] [place] [address] Oct, [facility] [place] [facility] [address] [id number] [place] [address] Oct, [facility] [place] [facility] [address] [id number] [place] [address] Sep, [facility] [place] [facility] [address] [id number] [place] [address] 21 Sep, 2011 [facility] [place] [facility] [address] [id number] [place] [address]44 20 Sep, 2011 [facility] [place] [facility] [address] [id number] [place] [address]- [address] 14 Sep, 2011 [facility] [place] [facility] [address] [id number] [place] [address]- [address] 14 Sep, 2011 [facility] [place] [facility] [address] [id number] [place] [address] 13 Sep, 2011 [facility] [place] [facility] [address] [id number] [place] [address]- [address] 12 Sep, 2011 [facility] [place] [facility] [address] [id number] [place] [address]- [address] 09 Sep, 2011 [facility] [place] [facility] [address] [id number] [place] [address]- [address] 05 Sep, 2011 [facility] [place] [facility] [address] [id number] [place] [address]- [address] 30 Aug, 2011 [facility] [place] [facility] [address] [id number] [place] [address]- [address] 30 Aug, 2011 [facility] [place] [facility] [address] [id number] [place] [address] Aug, [facility] [place] [facility] [address] [id number] [place] [address]36 Aug, [facility] [place] [facility] [address] [id number] [place] [address] Aug, [facility] [place] [facility] [address] [id number] [place] [address]- [address]83 22 Aug, 2011 [facility] [place] [facility] [address] [id number] [place] [address] 16 Aug, 2011 [facility] [place] [facility] [address] [id number] [place] [address] Aug, [facility] [place] [facility] [address] [id number] [place] [address] 4748 Aug, [facility] [place] [facility] [address] [id number] [place] [address] Aug, [facility] [place] [facility] [address] [id number] [place] [address]- [address] Aug, [facility] [place] [facility] [address] [id number] [place] [address]- [address] Aug, [facility] [place] [facility] [address] [id number] [place] [address] Jul, [facility] [place] [facility] [address] [id number] [place] [address] Jul, [facility] [place] [facility] [address] [id number] [place] [address] Jul, [facility] [place] [facility] [address] [id number] [place] [address] Jul, [facility] [place] [facility] [address] [id number] [place] [address] Jul, [facility] [place] [facility] [address] [id number] [place] [address] Jul, [facility] [place] [facility] [address] [id number] [place] [address] Jul, [facility] [place] [facility] [address] [id number] [place] [address] Jul, [facility] [place] [facility] [address] [id number] [place] [address] Jul, [facility] [place] [facility] [address] [id number] [place] [address] Jul, [facility] [place] [facility] [address] [id number] [place] [address]- [address] Nov, [facility] [place] [facility] [address] [facility] [id number] [place] [address] Aug, [facility] [address] [facility] [id number] [place] [address] Aug, [facility] [address] [id number] [place] [address] Aug, [place] [address] [id number] [place] [address] Aug, [facility] [address] [facility] [id number] [place] [address] Jul, IMMUNIZATIONS No Known Immunizations SOCIAL HISTORY Never Assessed REASON FOR VISIT f/u--Adriana Rendon MA PLAN OF CARE Activity Details Follow Up 4 Weeks Reason: f/u VITAL SIGNS Height 65.75 in 2017-08-22 Weight 189.4 lbs 2017-08-22 Heart Rate 90 bpm 2017-08-22 Respiratory Rate 20 2017-08-22 BMI 30.80 kg/m2 2017-08-22 Blood pressure systolic 112 mmHg 2017-08-22 Blood pressure diastolic 84 mmHg 2017-08-22 MEDICATIONS Medication Instructions Dosage Frequency Start Date End Date Duration Status NovoLog Mix 70/30 (70-30) 100 UNIT/ML Subcutaneous 3 times a day 35 units 8h Active Invega 6 MG Orally Once a day 2 tablets 24h Active Topamax 100 MG Orally Twice a day 1.5 tablet 12h Active Insulin Detemir 100 unit/mL (3 mL) Subcutaneous 2 times a day 35 units by Subcutaneous route 1 time per day [facility] 12h February, Active Citalopram Hydrobromide 40 mg Orally Once a day 1 tablet with the 20 mg tablet 24h February, Active Hydrocodone-Acetaminophen 10-325 mg 1 Tablet by Oral route every 8 hours PRN pain Jul, Active Trazodone HCl 300 MG Orally Once a day at bedtime 1 tablet Jul, 30 day(s) Active Metformin HCl 1000 MG Orally 2 times a day 1 tablet 12h Active Citalopram Hydrobromide 20 mg Orally Once a day 1 tablet daily with 40 mg tablet 24h Active Abilify 2 MG Orally Once a day 1 tablet 24h 30 day(s) Active Intuniv 1 MG Orally Once a day at bedtime 1 tablet Active Cyproheptadine HCl 4 MG Orally once a day 3 tablets 24h Active Ativan 1 MG Orally Once a day as needed 1 tablet Active RESULTS No Results PROCEDURES Procedure Date Ordered Result Body Site [facility] VISIT ESTABLISHED PATIENT Aug 22, 2017 INSTRUCTIONS MEDICATIONS ADMINISTERED No Known Medications MEDICAL (GENERAL) HISTORY Type Description Date Medical History diabetes Medical History thyroid Surgical History appendix Surgical History gallbladder Surgical History eyes Surgical History hip Surgical History MRI on back and pelvis 06/08 Hospitalization History surgeries Hospitalization History [facility] Suicide attempt by hanging 06/14/2016 Hospitalization History [facility] 01/30/2018-02/10/2008
--- OUTSIDE RECORDS SUMMARY | 2018-08-15 20:54 | XMS REPORT ---
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 483442776 Problem Borderline personality disorder F60.3 Active 48631676 Problem High risk medication use Z79.899 Active 889994914 Problem Schizoaffective disorder, unspecified F25.9 Active 79427864 Problem Paranoid schizophrenia F20.0 Active 26759125 Problem Posttraumatic stress disorder F43.10 Active 16842697 Problem Attention deficit hyperactivity disorder (ADHD), inattentive type, 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 08590334 Problem Posttraumatic stress disorder 309.81 Active 30199072 Problem Obsessive-compulsive disorders 300.3 Active 387609251 Problem Generalized anxiety disorder 300.02 Active 45498282 Problem Attention deficit disorder of childhood without mention of hyperactivity 314.00 Active 10018665 Problem Bipolar disorder, unspecified 296.80 Active 78487414 ALLERGIES Substance Reaction Event Type Date Status [...] Release(e.c.) nausea Non Drug Allergy Aug Active ENCOUNTERS Encounter Location Date Diagnosis [facility] [address] [facility] [id number] [address] Mar, [facility] [address] [address] February, Paranoid schizophrenia F20.0 [facility] [address] [address] February, Paranoid schizophrenia F20.0 ; Posttraumatic stress disorder F43.10 ; Attention deficit hyperactivity disorder (ADHD), inattentive type, 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 and Borderline personality disorder F60.3 [facility] [address] [address] February, Paranoid schizophrenia F20.0 ; Posttraumatic stress disorder F43.10 ; Attention deficit hyperactivity disorder (ADHD), inattentive type, 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 and Borderline personality disorder F60.3 [facility] [address]65[place] [address] February, [facility] [address] [address] February, Paranoid schizophrenia F20.0 [facility] [id number] [address] February, Paranoid schizophrenia F20.0 [facility] [address] [address] February, Paranoid schizophrenia F20.0 ; Posttraumatic stress disorder F43.10 ; Attention deficit hyperactivity disorder (ADHD), inattentive type, 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 and Borderline personality disorder F60.3 [facility] [address] [id number] [address] Jan, Paranoid schizophrenia F20.0 ; Posttraumatic stress disorder F43.10 ; Attention deficit hyperactivity disorder (ADHD), inattentive type, 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 and Borderline personality disorder F60.3 [facility] [address] [id number], [place] [address] Jan, Paranoid schizophrenia F20.0 [facility] [address] [id number] [address] Jan, Paranoid schizophrenia F20.0 [facility] [address] [address] Jan, Paranoid schizophrenia F20.0 ; Posttraumatic stress disorder F43.10 ; Attention deficit hyperactivity disorder (ADHD), inattentive type, 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 and Borderline personality disorder F60.3 [facility] [address] [address] Dec, [facility] [address] [id number] [address] Nov, Paranoid schizophrenia F20.0 ; Posttraumatic stress disorder F43.10 ; Attention deficit hyperactivity disorder (ADHD), inattentive type, 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 and Borderline personality disorder F60.3 [facility] [address] [address] Nov, [facility] [id number] [place] [address] Oct, Paranoid schizophrenia F20.0 [facility] [address] [address] Oct, Paranoid schizophrenia F20.0 ; Posttraumatic stress disorder F43.10 ; Attention deficit hyperactivity disorder (ADHD), inattentive type, 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 ; Borderline personality disorder F60.3 [place] [facility] [place] [facility] 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 Z79.899 [facility] [address] [address] Oct, [facility] [address] [address] Oct, [facility] [address] [id number] [address] Sep, [facility] [address] [address] Sep, Paranoid schizophrenia F20.0 ; Posttraumatic stress disorder F43.10 ; Attention deficit hyperactivity disorder (ADHD), inattentive type, 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 and Borderline personality disorder F60.3 [facility] [address], [place] [address] 6[address] Sep, Paranoid schizophrenia F20.0 [facility] [address] [id number] [address] 8[address] Aug, Paranoid schizophrenia F20.0 ; Posttraumatic stress disorder F43.10 ; Attention deficit hyperactivity disorder (ADHD), inattentive type, 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 and Borderline personality disorder F60.3 [facility] [address]65[address] [address] 26[address] Aug, Paranoid schizophrenia F20.0 ; Posttraumatic stress disorder F43.10 ; Attention deficit hyperactivity disorder (ADHD), inattentive type, 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 and Borderline personality disorder F60.3 [facility] [address], [place] [address] Aug, [facility] [address], [place] [address] 32[address] Jul, Paranoid schizophrenia F20.0 ; Posttraumatic stress disorder F43.10 ; Attention deficit hyperactivity disorder (ADHD), inattentive type, 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 and Borderline personality disorder F60.3 [facility] [address] [address]- 6[address] Jul, Paranoid schizophrenia F20.0 [facility] [address], [place] [address]- 18[address] Jul, Paranoid schizophrenia F20.0 ; Posttraumatic stress disorder F43.10 ; Attention deficit hyperactivity disorder (ADHD), inattentive type, 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 and Borderline personality disorder F60.3 [facility] [address], [place] [address] Jun, Paranoid schizophrenia F20.0 ; Posttraumatic stress disorder F43.10 ; Attention deficit hyperactivity disorder (ADHD), inattentive type, 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 and Borderline personality disorder F60.3 [facility] [address] [facility] [id number], [place] [address] May, [place] [facility] 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 Z79.899 [facility] [address] [facility] [id number] [place] [address]- 39[address] May, [facility] [address] [id number] [place] [address] May, [facility] [address] [facility] [id number] [address] May, Attention deficit hyperactivity disorder (ADHD), inattentive type, 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 [facility] [address] [id number] [place] [address] 5[address] May, [facility] [address] [facility] [id number], [place] [address] May, Attention deficit hyperactivity disorder (ADHD), inattentive type, 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 [facility] [address] [id number] [address]- 3[address] May, Paranoid schizophrenia F20.0 ; Posttraumatic stress disorder F43.10 ; Attention deficit hyperactivity disorder (ADHD), inattentive type, 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 and [facility] [place] [facility] 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 Z79.899 [facility] [address] [id number], [place] [address]- 7[address] Apr, Paranoid schizophrenia F20.0 [facility] [address] [id number] [address]- 5[address] Apr, Paranoid schizophrenia F20.0 ; Posttraumatic stress disorder F43.10 and Attention deficit hyperactivity disorder (ADHD), inattentive type, 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 [facility] [address] [id number], [place] [address]- 2617 February, [facility] [address] [facility] [id number] [address]- 2992 February, Paranoid schizophrenia F20.0 ; Posttraumatic stress disorder F43.10 and Attention deficit hyperactivity disorder (ADHD), inattentive type, 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 [facility] [address] [id number], [place] [address]- 55[address] February, Paranoid schizophrenia F20.0 ; Posttraumatic stress disorder F43.10 and Attention deficit hyperactivity disorder (ADHD), inattentive type, 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 [facility] [address], [place] [address]- 6[address] Jan, Paranoid schizophrenia F20.0 ; Posttraumatic stress disorder F43.10 and Attention deficit hyperactivity disorder (ADHD), inattentive type, 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 [facility] [id number] [place] [address] [id number] Dec, Dental examination Z01.20 [facility] [address] [id number] [place] [address] [id number] Nov, Dental examination Z01.20 [facility] [id number] [place] [address] [id number] Nov, Dental examination Z01.20 [facility] [id number] [place] [address] [id number] Nov, Dental caries K02.9 [facility] [address] [place] [address] 13410- 0114 Nov, High risk medication use Z79.899 [facility] [address] [place] [address] 39386- 3915 Nov, Paranoid schizophrenia F20.0 ; Posttraumatic stress disorder F43.10 ; Attention deficit hyperactivity disorder (ADHD), inattentive type, 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 and Borderline personality disorder in adult F60.3 [facility] [address] [place] [address] [id number] Oct, Dental caries K02.9 [facility] [address], [place] [address]- [address] 05 Sep, 2016 Paranoid schizophrenia F20.0 ; Posttraumatic stress disorder F43.10 and Attention deficit hyperactivity disorder (ADHD), inattentive type, 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 [facility] [address]00565[address] [address] Aug, Paranoid schizophrenia F20.0 ; Posttraumatic stress disorder F43.10 and Attention deficit hyperactivity disorder (ADHD), inattentive type, 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 [facility] [address], [place] [address] Aug, Strep throat J02.0 and Cough R05 [facility] [address]00565[address] [address]- 37[address] Aug, [facility] [id number] [place] [address] 18195- 7561 Jul, Paranoid schizophrenia F20.0 ; Posttraumatic stress disorder F43.10 and Attention deficit hyperactivity disorder (ADHD), inattentive type, 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 [facility] [address] [place] [address] 29409- 7034 Jul, [facility] [address] [place] [address] 52994- 1753 Jun, Paranoid schizophrenia F20.0 ; Posttraumatic stress disorder F43.10 and Attention deficit hyperactivity disorder (ADHD), inattentive type, 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 [facility] [address] [id number] Jun, Dental examination Z01.20 [facility] [address]00565[place], [place] [address]- 6[address] Jun, [facility] [address] [place] [address] 55371- 3058 May, Paranoid schizophrenia F20.0 [facility] [address] [place] [address] 51898- 9778 May, Paranoid schizophrenia F20.0 ; Posttraumatic stress disorder F43.10 and Attention deficit hyperactivity disorder (ADHD), inattentive type, 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 [facility] [address] [place] [address], [place] [address]- 3665 May, [facility] [address] [facility] [id number] [address]- 2914 May, Paranoid schizophrenia F20.0 [facility] [address] [facility] [id number] [place] [address]- 8386 May, [facility] [address] [facility] [id number], [place] [address]- 7062 May, Paranoid schizophrenia F20.0 [facility] [address] [facility] [id number] [place] [address]- 0324 May, Schizoaffective disorder, unspecified F25.9 [facility] [address] [id number] [place] [address]- 7114 May, Schizoaffective disorder, unspecified F25.9 [facility] [address] [id number] [address]- 2851 May, [facility] [address] [facility] [id number], [place] [address]- 9211 May, Paranoid schizophrenia F20.0 [facility] [address] [id number] [address]- 0711 May, Paranoid schizophrenia F20.0 ; Posttraumatic stress disorder F43.10 and Attention deficit hyperactivity disorder (ADHD), inattentive type, 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 [facility] [address] [facility] [id number], [place] [address]- 3202 Mar, [facility] [address] [facility] [id number], [place] [address]- 5391 Mar, Paranoid schizophrenia F20.0 ; Posttraumatic stress disorder F43.10 and Attention deficit hyperactivity disorder (ADHD), inattentive type, 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 [facility] [address] [facility] [id number][place] [address]- 3577 Mar, Paranoid schizophrenia F20.0 [facility] [address] [id number] [address]- 9092 Mar, Paranoid schizophrenia F20.0 ; Attention deficit hyperactivity disorder (ADHD), inattentive type, 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 and Posttraumatic stress disorder F43.10 [facility] [address] [facility] [id number], [place] [address]- 7651 Mar, [facility] [address] [facility] [id number] [place] [address] 02549- 6635 Mar, Paranoid schizophrenia F20.0 ; Posttraumatic stress disorder F43.10 and Attention deficit hyperactivity disorder (ADHD), inattentive type, 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 [facility] [address] [facility] [id number] [place] [address] 12073- 5848 February, [facility] [address] [id number] [address]- 6316 February, [facility] [id number] [place] [address] 68842- 5833 February, [facility] [id number] [place] [address] 51434- 8757 February, [facility] [id number] [place] [address] 75469- 6629 Jan, Paranoid schizophrenia F20.0 [facility] [address] [id number] [id number] Jan, Dental examination Z01.20 [facility] [id number] [place] [address] [id number] Jan, Dental caries K02.9 [facility] [id number] [place] [address] [id number] Jan, Dental examination Z01.20 [facility] [address] [id number] [place] [address] [id number] Dec, Encounter for dental examination Z01.20 [facility] [address] [id number] [address]66 Dec, Paranoid schizophrenia F20.0 [facility] [address] [id number] [id number] Dec, Dental examination Z01.20 [facility] [address]00565[address], [place] [address]- 8018 Dec, [facility] [address], [place] [address]- 8347 Dec, Paranoid schizophrenia F20.0 ; Posttraumatic stress disorder F43.10 and Attention deficit hyperactivity disorder (ADHD), inattentive type, 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 [facility] [address]005[address], [place] [address]- 7663 Nov, Schizoaffective disorder, unspecified F25.9 [facility] [address], [place] [address]- 6138 Oct, Paranoid schizophrenia F20.0 [facility] [address]00565100[place], [place] [address]- 7574 Oct, [facility] [address] [place] [address] 10946- 7303 Sep, Paranoid schizophrenia F20.0 ; Posttraumatic stress disorder F43.10 and Attention deficit hyperactivity disorder (ADHD), inattentive type, 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 [facility] [address]00565[address], [place] [address]- 6308 Sep, [facility] [address], [place] [address]- 0505 Sep, Paranoid schizophrenia F20.0 ; Posttraumatic stress disorder F43.10 and Attention deficit hyperactivity disorder (ADHD), inattentive type, 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 [facility] [address]00565100[place] [address]- 2798 Aug, Paranoid schizophrenia F20.0 [facility] [address], [place] [address]- 6440 Aug, [facility] [address] [place] [address] 02418- 5636 Aug, Posttraumatic stress disorder F43.10 ; Paranoid schizophrenia F20.0 and Attention deficit hyperactivity disorder (ADHD), inattentive type, 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 [facility] [address]005[address], [place] [address]- 4455 Jul, Bipolar disorder, unspecified F31.9 [facility] [address] [place] [address] 93141- 1078 Jul, [facility] [id number] [place] [address] 21261- 9373 Jun, [facility] [id number] [place] [address] 15900- 9072 Jun, Schizoaffective disorder, chronic 295.72 ; Posttraumatic stress disorder 309.81 and Attention deficit disorder of childhood without mention of hyperactivity 314.00 [facility] [id number] [place] [address] 93953- 9361 May, [facility] [address] [place] [address] 33052- 6602 May, [facility] [id number] [place] [address] 76692- 8727 May, Schizoaffective disorder, chronic 295.72 ; Posttraumatic stress disorder 309.81 ; Attention deficit disorder of childhood 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 314.00 and Bipolar disorder, unspecified 296.80 [facility] [address]005[address], [place] [address]- 8912 Apr, Schizoaffective disorder, chronic 295.72 [facility] [address]005[address], [place] [address]- 0617 Apr, [facility] [id number] [place] [address] 01861- 8724 Apr, Schizoaffective disorder, chronic 295.72 ; Posttraumatic stress disorder 309.81 and Attention deficit disorder of childhood without mention of hyperactivity 314.00 [facility] [address] [id number] [address]- 0780 Mar, Disorganized schizophrenia, 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 [facility] [address], [place] [address]- 1434 Mar, [facility] [address], [place] [address]- 9492 Mar, [facility] [address], [place] [address]- 5721 Mar, [facility] [address], [place] [address]- 0250 Mar, [facility] [id number] [place] [address] 88118- 3469 February, Schizoaffective disorder, chronic 295.72 [facility] [address] [id number] [address]- 0813 February, [facility] [id number] [place] [address] 84617- 4589 February, Attention deficit disorder of childhood without mention of hyperactivity 314.00 ; Posttraumatic stress disorder 309.81 and Schizoaffective disorder, chronic 295.72 [facility] [address], [place] [address]- 1095 Jan, [facility] [address], [place] [address]- 3269 Jan, [facility] [address], [place] [address]- 1753 Jan, [facility] [address], [place] [address]- 0010 Dec, [facility] [address] [address]- 5117 Dec, [facility] [address] [address] 9348 Dec, [facility] [address] [id number], [place] [address]- 8918 Dec, [facility] [place] [facility] [address] [id number] [place] [address]- 2214 Dec, 2014 [facility] [place] [facility] [address] [id number] [place] [address]- 3726 Dec, 2014 [facility] [place] [facility] [address] [id number] [place] [address]- 6036 Dec, 2014 [facility] [place] [facility] [address] [id number] [place] [address]- 2830 Dec, [facility] [place] [facility] [address] [id number] [place] [address]- 0331 Nov, 2014 [facility] [place] [facility] [address] [id number] [place] [address]- 5775 Nov, 2014 [facility] [place] [facility] [address] [facility] [id number] [place] [address]- 9513 Nov, 2014 [facility] [place] [facility] [address] [facility] [id number] [place] [address]- 9911 Nov, 2014 [facility] [place] [facility] [address] [facility] [id number] [place] [address]- 4636 Nov, 2014 [facility] [place] [facility] [address] [facility] [id number] [place] [address]- 1736 Nov, 2014 [facility] [place] [facility] [address] [facility] [id number] [place] [address]- 2546 Nov, 2014 [facility] [place] [facility] [address] [facility] [id number] [place] [address]- 2543 Nov, [facility] [place] [facility] [address] [facility] [id number] [place] 1730 Nov, 2014 [facility] [place] [facility] [address] [facility] [id number] [place] [address]- 2476 Nov, 2014 [facility] [place] [facility] [address] [facility] [id number] [place] [address]- 6490 Oct, [facility] [place] [facility] [address] [id number] [place] [address]- 7289 Oct, [facility] [place] [facility] [address] [id number] [place] [address]- 2854 Oct, [facility] [place] [facility] [address] [id number] [place] [address] 15 Oct, 2014 [facility] [place] [facility] [address] [id number] [place] [address] 15 Oct, 2014 [facility] [place] [facility] [address] [id number] [place] [address] Oct, [facility] [place] [facility] [address] [id number] [place] [address] Oct, [facility] [place] [facility] [address] [id number] [place] [address] 17 Sep, 2014 [facility] [place] [facility] [address] [id number] [place] [address] 17 Sep, 2014 [facility] [place] [facility] [address] [id number] [place] [address] 1399 15 Sep, 2014 [facility] [place] [facility] [address] [id number] [place] [address] 3351 15 Sep, 2014 [facility] [place] [facility] [address] [id number] [place] [address] 8629 20 Aug, 2014 [facility] [place] [facility] [address] [id number] [place] [address] 6807 20 Aug, 2014 [facility] [place] [facility] [address] [id number] [place] [address] 0462 14 Aug, 2014 [facility] [place] [facility] [address] [id number] [place] [address]- 5447 14 Aug, 2014 [facility] [place] [facility] [address] [id number] [place] [address] 5543 14 Aug, 2014 [facility] [place] [facility] [address] [id number] [place] [address]- 1700 14 Aug, 2014 [facility] [place] [facility] [address] [id number] [place] [address]- 1531 29 Jul, 2014 [facility] [place] [facility] [address] [id number] [place] [address] 7262 29 Jul, 2014 [facility] [place] [facility] [address] [id number] [place] [address]- 4398 24 Jul, 2014 [facility] [place] [facility] [address] [id number] [place] [address]- 8951 24 Jul, 2014 [facility] [place] [facility] [address] [id number] [place] [address]- 9512 15 Jul, 2014 [facility] [place] [facility] [address] [id number] [place] [address]- 9968 15 Jul, 2014 [facility] [place] [facility] [address] [id number] [place] [address]- 2245 27 Jun, 2013 [facility] [place] [facility] [address] [id number] [place] [address]- 6415 27 Sep, 2013 [facility] [place] [facility] [address] [id number] [place] [address]- 6530 26 Sep, 2013 [facility] [place] [facility] [address] [id number] [place] [address]- 254 26 Sep, 2013 [facility] [place] [facility] [address] [id number] [place] [address]- 2548 26 Sep, 2013 [facility] [place] [facility] [address] [id number] [place] [address]- 2545 26 Sep, 2013 [facility] [place] [facility] [address] [id number] [place] [address] 2541 16 Sep, 2013 [facility] [place] [facility] [address] [id number] [place] [address]- 2546 16 Sep, 2013 [facility] [place] [facility] [address] [id number] [place] [address]- 2540 16 Sep, 2013 [facility] [place] [facility] [address] [id number] [place] [address]- 9756 Jun, [facility] [place] [facility] [address] [id number] [place] [address]- 0516 Jun, [facility] [place] [facility] [address] [id number] [place] [address] 2395 May, [facility] [place] [facility] [address] [id number] [place] [address]- 5099 May, [facility] [place] [facility] [address] [id number] [place] [address]- 2717 May, [facility] [place] [facility] [address] [id number] [place] [address]- 7150 May, [facility] [place] [facility] [address] [id number] [place] [address]- 0796 May, [facility] [place] [facility] [address] [id number] [place] [address]- 9900 May, [facility] [place] [facility] [address] [id number] [place] [address]- 6752 May, [facility] [place] [facility] [address] [id number] [place] [address]- 6610 May, [facility] [place] [facility] [address] [id number] [place] [address]- 4635 May, [facility] [place] [facility] [address] [id number] [place] [address]- 5642 May, [facility] [place] [facility] [address] [id number] [place] [address]- 2373 Apr, [facility] [place] [facility] [address] [id number] [place] [address]- 5679 Apr, [facility] [place] [facility] [address] [id number] [place] [address]- 7158 Apr, [facility] [place] [facility] [address] [id number] [place] [address]- 6986 Apr, [facility] [place] [facility] [address] [id number] [place] [address]- 6155 Apr, [facility] [place] [facility] [address] [id number] [place] [address]- 2876 Apr, [facility] [place] [facility] [address] [id number] [place] [address]- 7892 Apr, [facility] [place] [facility] [address] [id number] [place] [address]- 6278 Apr, [facility] [place] [facility] [address] [id number] [place] [address]- 0082 Apr, [facility] [place] [facility] [address] [id number] [place] [address]- 8079 Apr, [facility] [place] [facility] [address] [id number] [place] [address]- 9265 Mar, [facility] [place] [facility] [address] [id number] [place] [address]- 5793 Mar, [facility] [place] [facility] [address] [id number] [place] [address]- 2434 Mar, [facility] [place] [facility] [address] [id number] [place] [address]- 4259 Mar, [facility] [place] [facility] [address] [id number] [place] [address]- 4092 Mar, [facility] [place] [facility] [address] [id number] [place] [address]- 4563 Mar, [facility] [place] [facility] [address] [id number] [place] [address]- 9871 Mar, [facility] [place] [facility] [address] [id number] [place] [address]- 6153 16 Mar, 2014 [facility] [place] [facility] [address] [id number] [place] [address]- 5312 Mar, [facility] [place] [facility] [address] [id number] [place] [address]- 2146 Mar, [facility] [place] [facility] [address] [id number] [place] [address]- 8280 Mar, [facility] [place] [facility] [address] [id number] [place] [address]- 3987 Mar, [facility] [place] [facility] [address] [id number] [place] [address]- 3073 Mar, [facility] [place] [facility] [address] [id number] [place] [address]- 8794 Mar, [facility] [place] [facility] [address] [id number] [place] [address]- 2914 Mar, [facility] [place] [facility] [address] [id number] [place] [address]- 4667 Mar, [facility] [place] [facility] [address] [id number] [place] [address]- 1199 Mar, [facility] [place] [facility] [address] [id number] [place] [address]- 7068 Mar, [facility] [place] [facility] [address] [id number] [place] [address]- 9435 Mar, [facility] [place] [facility] [address] [id number] [place] [address]- 7765 Mar, [facility] [place] [facility] [address] [id number] [place] [address]- 6512 February, [facility] [place] [facility] [address] [id number] [place] [address]- 8078 February, [facility] [place] [facility] [address] [id number] [place] [address]- 2780 February, [facility] [place] [facility] [address] [id number] [place] [address]- 5798 February, [facility] [place] [facility] [address] [id number] [place] [address]- 8188 February, [facility] [address] [id number] [place] [address]- 9337 February, [facility] [place] [facility] [address] [id number] [place] [address]- 6031 February, [facility] [place] [facility] [address] [id number] [place] [address]- 2825 February, [facility] [place] [facility] [address] [id number] [place] [address]- 8262 February, [facility] [address] [id number] [place] [address]- 9833 February, [facility] [place] [facility] [address] [id number] [place] [address]- 1320 February, [facility] [address] [id number] [place] [address]- 8116 February, [facility] [address] [id number] [place] [address]- 0351 February, [facility] [place] [facility] [address] [id number] [place] [address]- 8702 February, [facility] [place] [facility] [address] [id number] [place] [address]- 5235 February, [facility] [place] [facility] [address] [id number] [place] [address]- 6061 February, [facility] [place] [facility] [address] [id number] [place] [address]- 1511 February, [facility] [place] [facility] [address] [id number] [place] [address]- 4058 February, [facility] [place] [facility] [address] [id number] [place] February, [facility] [place] [facility] [address] [id number] [place] [address]- 8691 February, [facility] [place] [facility] [address] [id number] [place] [address]- 0845 February, [facility] [place] [facility] [address] [id number] [place] [address]- 0018 30 Jan, 2014 [facility] [place] [facility] [address] [id number] [place] 30 Jan, 2014 [facility] [place] [facility] [address] [id number] [place] [address]- 5337 Jan, [facility] [place] [facility] [address] [id number] [place] [address]- 1820 Jan, [facility] [place] [facility] [address] [id number] [place] [address]- 0207 Jan, [facility] [place] [facility] [address] [id number] [place] [address]- 1567 Jan, [facility] [place] [facility] [address] [id number] [place] [address]- 7329 Jan, [facility] [place] [facility] [address] [id number] [place] [address]- 2882 Jan, [facility] [place] [facility] [address] [id number] [place] [address]- 4564 Dec, [facility] [place] [facility] [address] [id number] [place] [address]- 7700 Dec, [facility] [place] [facility] [address] [id number] [place] [address]- 4009 20 Dec, 2013 [facility] [place] [facility] [address] [id number] [place] [address]- 5169 19 Dec, 2013 [facility] [place] [facility] [address] [id number] [place] [address]- 7546 19 Dec, 2013 [facility] [place] [facility] [address] [id number] [place] [address]- 5303 15 Dec, 2013 [facility] [place] [facility] [address] [id number] [place] [address]- 9628 15 Dec, 2013 [facility] [place] [facility] [address] [id number] [place] [address]- 7746 11 Dec, 2013 [facility] [place] [facility] [address] [id number] [place] [address]- 5831 10 Dec, 2013 [facility] [place] [facility] [address] [id number] [place] [address]- 2384 Dec, [facility] [place] [facility] [address] [id number] [place] [address]- 0516 18 Nov, 2013 [facility] [place] [facility] [address] [id number] [place] [address]- 0365 Nov, [facility] [place] [facility] [address] [id number] [place] [address]- 5308 Nov, [facility] [place] [facility] [address] [id number] [place] [address]- 2431 Nov, [facility] [place] [facility] [address] [id number] [place] [address]- 6307 Nov, [facility] [place] [facility] [address] [id number] [place] [address]- 2593 Oct, [facility] [place] [facility] [address] [id number] [place] [address]- 9397 Oct, [facility] [place] [facility] [address] [id number] [place] [address]- 3265 Oct, [facility] [place] [facility] [address] [id number] [place] [address]- 5517 Sep, [facility] [place] [facility] [address] [id number] [place] [address]- 6958 Sep, [facility] [place] [facility] [address] [id number] [place] [address]- 3745 Sep, [facility] [place] [facility] [address] [id number] [place] [address]15 Sep, [facility] [place] [facility] [address] [id number], [place] [address]- 6596 Aug, [facility] [place] [facility] [address] [id number] [place] [address]- 3241 Aug, [facility] [place] [facility] [address] [id number] [place] [address]- 9043 Jul, [facility] [place] [facility] [address] [id number] [place] [address]- 0174 Jul, [facility] [place] [facility] [address] [id number] [place] [address]- 7291 Jul, [facility] [place] [facility] [address] [id number] [place] [address]- 9310 Jul, [facility] [place] [facility] [address] [id number] [place] [address]- 6389 Jul, [facility] [place] [facility] [address] [id number] [place] [address]- 8816 Jun, [facility] [place] [facility] [address] [id number] [place] [address]- 9970 25 Jun, 2013 [facility] [place] [facility] [address] [id number] [place] [address]- 2408 19 Jun, 2013 [facility] [place] [facility] [address] [id number] [place] [address]- 3984 18 Jun, 2013 [facility] [place] [facility] [address] [id number], [place] [address]- 4640 16 Jun, 2013 [facility] [place] [facility] [address] [id number], [place] [address]- 0897 12 Jun, 2013 [facility] [place] [facility] [address] [id number] [place] [address]- 3328 11 Jun, 2013 [facility] [place] [facility] [address] [id number], [place] [address]- 9039 30 May, 2013 [facility] [place] [facility] [address] [id number] [place] [address]- 3917 May, [facility] [place] [facility] [address] [id number] [place] [address]- 0562 Apr, [facility] [address] [id number] [place] [address]- 8331 Apr, [facility] [address] [id number] [place] [address]- 3757 Apr, [facility] [address] [id number] [place] [address]- 5658 Mar, [facility] [address] [id number] [place] [address]- 4892 Mar, [facility] [address] [id number] [place] [address]- 2233 February, [facility] [address] [id number] [place] [address]- 1933 February, [facility] [address] [id number] [place] [address]- 9800 February, [facility] [address] [id number] [place] [address]- 8620 February, [facility] [address] [id number] [place] [address]- 5668 Jan, [facility] [address] [id number] [place] [address]- 2005 Jan, [facility] [address] [id number] [place] [address]- 3714 16 Jan, 2013 [facility] [address] [id number] [place] [address]- 1523 29 Dec, 2012 [facility] [address] [id number] [place] [address]- 8581 Dec, [facility] [address] [id number] [place] [address]- 2540 Dec, [facility] [address] [id number] [place] [address]- 7648 Dec, [facility] [address] [id number] [place] [address]- 3730 Nov, [facility] [place] [facility] [address] [id number] [place] [address]- 2966 Nov, [facility] [place] [facility] [address] [id number] [place] [address]- 8956 Oct, [facility] [place] [facility] [address] [id number] [place] [address]- 1636 Oct, [facility] [place] [facility] [address] [id number] [place] [address]- 4513 Oct, [facility] [place] [facility] [address] [id number] [place] [address]- 9046 Oct, [facility] [place] [facility] [address] [id number] [place] [address]- 3156 Aug, [facility] [place] [facility] [address] [id number] [place] [address]- 2313 Aug, [facility] [place] [facility] [address] [id number] [place] [address]- 7745 Jun, [facility] [place] [facility] [address] [id number] [place] [address]- 3966 May, [facility] [place] [facility] [address] [id number] [place] [address]- 6206 May, [facility] [place] [facility] [address] [id number], [place] [address]- 0226 Apr, [facility] [place] [facility] [address] [id number] [place] [address]- 7326 Apr, [facility] [place] [facility] [address] [id number] [place] [address]- 5456 Apr, [facility] [place] [facility] [address] [id number] [place] [address]- 0296 Mar, [facility] [place] [facility] [address] [id number] [place] [address]- 8582 19 Mar, 2012 [facility] [address] [id number] [place] [address]- 7133 13 Mar, 2012 [facility] [place] [facility] [address] [id number] [place] [address]- 8018 Mar, [facility] [address] [id number] [place] [address]- 9472 Mar, [facility] [place] [facility] [address] [id number] [place] [address]- 8469 February, [facility] [address] [id number] [place] [address]- 6035 February, [facility] [address] [id number] [place] [address]- 9053 February, [facility] [address] [id number] [place] [address]- 1337 February, [facility] [address] [id number] [place] [address]- 2356 February, [facility] [address] [id number] [place] [address]- 2431 February, [facility] [address] [id number] [place] [address]- 4172 February, [facility] [address] [id number] [place] [address]- 7645 25 Jan, 2012 [facility] [place] [facility] [address] [id number] [place] [address]- 9550 18 Jan, 2012 [facility] [place] [facility] [address] [id number] [place] [address]- 4922 17 Jan, 2012 [facility] [place] [facility] [address] [id number] [place] [address]- 1549 13 Jan, 2012 [facility] [place] [facility] [address] [id number] [place] [address]- 2698 10 Jan, 2012 [facility] [place] [facility] [address] [id number] [place] [address]- 6209 04 Jan, 2012 [facility] [place] [facility] [address] [id number] [place] [address]- 6216 30 Dec, 2011 [facility] [place] [facility] [address] [id number] [place] [address]- 2556 24 Dec, 2011 [facility] [place] [facility] [address] [id number] [place] [address]- 6564 20 Dec, 2011 [facility] [place] [facility] [address] [id number] [place] [address]- 3121 13 Dec, 2011 [facility] [place] [facility] [address] [id number] [place] [address]- 4559 06 Dec, 2011 [facility] [place] [facility] [address] [id number] [place] [address]- 0662 Nov, [facility] [place] [facility] [address] [id number] [place] [address]- 5694 Nov, [facility] [place] [facility] [address] [id number] [place] [address]- 6066 Nov, [facility] [place] [facility] [address] [id number] [place] [address]- 0024 14 Nov, 2011 [facility] [place] [facility] [address] [id number] [place] [address]- 1075 Nov, [facility] [place] [facility] [address] [id number] [place] [address]- 4494 Nov, [facility] [place] [facility] [address] [id number] [place] [address]- 2372 Oct, [facility] [place] [facility] [address] [id number] [place] [address]- 7711 Oct, [facility] [place] [facility] [address] [facility] [id number] [place] [address]- 2340 Oct, [facility] [place] [facility] [address] [id number] [place] [address]- 8712 Oct, [facility] [address] [id number] [place] [address] Oct, [facility] [place] [facility] [address] [id number] [place] [address] Sep, [facility] [place] [facility] [address] [id number] [place] [address] Sep, [facility] [place] [facility] [address] [id number] [place] [address] 20 Sep, 2011 [facility] [place] [facility] [address] [id number] [place] [address] 14 Sep, 2011 [facility] [place] [facility] [address] [id number] [place] [address] 2015 14 Sep, 2011 [facility] [place] [facility] [address] [id number] [place] [address] Sep, [facility] [place] [facility] [address] [id number] [place] [address] Sep, [facility] [place] [facility] [address] [id number] [place] [address] Sep, [facility] [place] [facility] [address] [id number] [place] [address] 05 Sep, 2011 [facility] [place] [facility] [address] [id number] [place] [address] Aug, [facility] [place] [facility] [address] [id number] [place] [address] Aug, [facility] [place] [facility] [address] [id number] [place] [address] Aug, [facility] [place] [facility] [address] [id number] [place] [address] Aug, [facility] [place] [facility] [address] [facility] [id number] [place] [address] Aug, [facility] [place] [facility] [address] [id number] [place] [address] Aug, [facility] [place] [facility] [address] [id number] [place] [address] Aug, [facility] [place] [facility] [address] [id number] [place] [address] Aug, [facility] [place] [facility] [address] [id number] [place] [address] Aug, [facility] [place] [facility] [address] [id number] [place] [address] Aug, [facility] [place] [facility] [address] [id number] [place] [address] Aug, [facility] [place] [facility] [address] [id number] [place] [address] Aug, [facility] [place] [facility] [address] [id number] [place] [address] Jul, [facility] [place] [facility] [address] [id number] [place] [address] Jul, [facility] [place] [facility] [address] [id number] [place] [address] 24 Jul, 2011 [facility] [place] [facility] [address] [id number] [place] [address] Jul, [facility] [place] [facility] [address] [id number] [place] [address] 20 Jul, 2011 [facility] [place] [facility] [address] [id number] [place] [address] Jul, [facility] [place] [facility] [address] [id number] [place] [address] 18 Jul, 2011 [facility] [place] [facility] [address] [id number] [place] [address] 11 Jul, 2011 [facility] [place] [facility] [address] [id number] [place] [address] Jul, [facility] [address] [id number] [address] Jul, [facility] [id number] [address] Nov, [facility] [id number] [address] Aug, [facility] [id number] [address] Aug, [facility] [id number] [address] Aug, [facility] [id number] [address] Aug, [facility] [id number] [address] Jul, IMMUNIZATIONS No Known Immunizations SOCIAL HISTORY Never Assessed REASON FOR VISIT f/u PLAN OF CARE Activity Details Follow Up 4 Weeks Reason: f/u VITAL SIGNS Height 65.75 in 2017-09-22 Weight 192.5 lbs 2017-09-22 Heart Rate 74 bpm 2017-09-22 Respiratory Rate 18 2017-09-22 BMI 31.30 kg/m2 2017-09-22 Blood pressure systolic 112 mmHg 2017-09-22 Blood pressure diastolic 76 mmHg 2017-09-22 MEDICATIONS Medication Instructions Dosage Frequency Start Date End Date Duration Status Ativan 1 MG Orally Once a day as needed 1 tablet Active Invega 6 MG Orally Once a day 2 tablets 24h Active Intuniv 1 MG Orally Once a day at bedtime 1 tablet Active Citalopram Hydrobromide 20 mg Orally Once a day 1 tablet daily with 40 mg tablet 24h Active Topamax 100 mg Orally Twice a day 1.5 tablet 12h Active Citalopram Hydrobromide 40 mg Orally Once a day 1 tablet with the 20 mg tablet 24h February, Active Cyproheptadine HCl 4 MG Orally once a day 3 tablets 24h Active Abilify 2 MG Orally Once a day 1 tablet 24h Active Seroquel 300 MG Orally Once a day at bedtime for sleep 1/2 tablet Aug Active Metformin HCl 1000 MG Orally 2 times a day 1 tablet 12h Active Hydrocodone-Acetaminophen 10-325 mg 1 Tablet by Oral route every 8 hours PRN pain Jul, Active Insulin Detemir 100 unit/mL (3 mL) Subcutaneous 2 times a day 35 units by Subcutaneous route 1 time per day qHS 12h February, Active NovoLog Mix 70/30 (70-30) 100 UNIT/ML Subcutaneous 3 times a day 35 units 8h Active RESULTS No Results PROCEDURES Procedure Date Ordered Result Body Site [facility] VISIT ESTABLISHED PATIENT Sep 22, 2017 INSTRUCTIONS MEDICATIONS ADMINISTERED No Known Medications MEDICAL (GENERAL) HISTORY Type Description Date Medical History diabetes Medical History thyroid Surgical History appendix Surgical History gallbladder Surgical History eyes Surgical History hip Surgical History MRI on back and pelvis 06/08 Hospitalization History surgeries Hospitalization History [facility] Suicide attempt by hanging 06/14/2016 Hospitalization History [facility] 01/30/2018-02/10/2008
--- OUTSIDE RECORDS SUMMARY | 2018-08-15 20:58 | XMS REPORT | Continuity of Care Document ---
Author Author [facility] Address Unknown Phone Unavailable Allergies Active Description Code Type Severity Reaction Onset Reported/Identified Relationship to Patient Clinical Status Yes cefuroxime [id number] Drug Allergy Severe RASH 12/14/2005 Yes Penicillins [id number] Drug Allergy Severe RASH 12/14/2005 Yes amoxicillin [id number] Drug Allergy Severe sob, rash 11/01/2010 Yes [...] Delayed Release(E.C.) Drug Allergy 2011 Yes clarithromycin [id number] Drug Allergy Mild nausea and dizz 02/07/2014 Yes Brintellix 10 mg tablet Drug Allergy N/A N/A 02/22/2014 Yes cephalexin Drug Allergy N/A N/A 03/11/2014 Medications There is no data. 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 07/17/2010 AFUA FINLEY APRN 295.70 P SCHIZO AFFECTIVE 07/17/2010 AFUA FINLEY APRN 301.83 PD BORDERLINE 07/17/2010 295.70 P SCHIZO AFFECTIVE 07/17/2010 301.83 PD BORDERLINE 07/17/2010 FINLEY RUG INSPECTOR HELPER, AFUA BOSWELL 295.70 P SCHIZO AFFECTIVE 07/17/2010 FINLEY RUG INSPECTOR HELPER, AFUA BOSWELL 301.83 PD BORDERLINE 07/17/2010 295.70 P SCHIZO AFFECTIVE 07/17/2010 301.83 PD BORDERLINE 07/17/2010 FINLEY RUG INSPECTOR HELPER, AFUA BOSWELL 295.70 P SCHIZO AFFECTIVE 07/17/2010 FINLEY RUG INSPECTOR HELPER, AFUA BOSWELL 301.83 PD BORDERLINE 07/17/2010 295.70 [...] AFFECTIVE 07/17/2010 301.83 PD BORDERLINE 07/17/2010 FINLEY RUG INSPECTOR HELPER, AFUA BOSWELL 295.70 P SCHIZO AFFECTIVE 07/17/2010 FINLEY RUG INSPECTOR HELPER, AFUA BOSWELL 301.83 PD BORDERLINE 07/17/2010 FINLEY RUG INSPECTOR HELPER, AFUA BOSWELL 295.70 P SCHIZO AFFECTIVE 07/17/2010 FINLEY RUG INSPECTOR HELPER, AFUA LIZAMAH 301.83 PD BORDERLINE 07/17/2010 FINLEY RUG INSPECTOR HELPER, AFUA BOSWELL 295.70 P SCHIZO AFFECTIVE 07/17/2010 FINLEY RUG INSPECTOR HELPER, AFUA LIZAMAH 301.83 PD BORDERLINE 07/17/2010 FINLEY RUG INSPECTOR HELPER, AFUA BOSWELL 295.70 P SCHIZO AFFECTIVE 07/17/2010 FINLEY RUG INSPECTOR HELPER, AFUA LIZAMAH 301.83 PD BORDERLINE 07/17/2010 FINLEY RUG INSPECTOR HELPER, AFUA BOSWELL 295.70 P SCHIZO AFFECTIVE 07/17/2010 FINLEY RUG INSPECTOR HELPER, AFUA LIZAMAH 301.83 PD BORDERLINE 07/17/2010 FINLEY RUG INSPECTOR HELPER, AFUA BOSWELL 295.70 P SCHIZO AFFECTIVE 07/17/2010 FINLEY RUG INSPECTOR HELPER, AFUA LIZAMAH 301.83 PD BORDERLINE 07/17/2010 FINLEY RUG INSPECTOR HELPER, AFUA BOSWELL 295.70 P SCHIZO AFFECTIVE 07/17/2010 FINLEY RUG INSPECTOR HELPER, AFUA BOSWELL 301.83 PD BORDERLINE 07/17/2010 FINLEY RUG INSPECTOR HELPER, AFUA BSOWELL 295.70 P SCHIZO AFFECTIVE 07/17/2010 FINLEY RUG INSPECTOR HELPER, AFUA BOSWELL 301.83 PD BORDERLINE 07/17/2010 FINLEY RUG INSPECTOR HELPER, AFUA BOSWELL 295.70 P SCHIZO AFFECTIVE 07/17/2010 FINLEY RUG INSPECTOR HELPER, AFUA BOSWELL 301.83 PD BORDERLINE 07/17/2010 LILA RUG INSPECTOR HELPER, BRYAN 295.70 P SCHIZO AFFECTIVE 07/17/2010 LILA RUG INSPECTOR HELPER, BRYAN 301.83 PD BORDERLINE 07/17/2010 VYAS DO ALVARO K 295.70 P SCHIZO AFFECTIVE 07/17/2010 VYAS DO ALVARO K 301.83 PD BORDERLINE 07/17/2010 LILA RUG INSPECTOR HELPER, BRYAN 295.70 P SCHIZO AFFECTIVE 07/17/2010 LILA RUG INSPECTOR HELPER, BRYAN 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.83 PD BORDERLINE 07/17/2010 LILA RUG INSPECTOR HELPER, BRYAN 295.70 P SCHIZO AFFECTIVE 07/17/2010 LILA RUG INSPECTOR HELPER, BRYAN 301.83 PD BORDERLINE 07/17/2010 LILA RUG INSPECTOR HELPER, BRYAN 295.70 P SCHIZO AFFECTIVE 07/17/2010 LILA RUG INSPECTOR HELPER, BRYAN 301.83 PD BORDERLINE 07/17/2010 LILA RUG INSPECTOR HELPER, BRYAN 295.70 P SCHIZO AFFECTIVE 07/17/2010 LILA RUG INSPECTOR HELPER, BRYAN 301.83 PD BORDERLINE 07/17/2010 VYAS DO ALVARO K 295.70 P SCHIZO AFFECTIVE 07/17/2010 VYAS DO ALVARO K 301.83 PD BORDERLINE 07/17/2010 LILA RUG INSPECTOR HELPER, BRYAN 295.70 P SCHIZO AFFECTIVE 07/17/2010 LILA RUG INSPECTOR HELPER, BRYAN 301.83 PD BORDERLINE 07/17/2010 LILA RUG INSPECTOR HELPER, BRYAN 295.70 P SCHIZO AFFECTIVE 07/17/2010 LILA RUG INSPECTOR HELPER, RBYAN 301.83 PD BORDERLINE 07/17/2010 LILA RUG INSPECTOR HELPER, BRYAN 295.70 P SCHIZO AFFECTIVE 07/17/2010 LILA RUG INSPECTOR HELPER, BRYAN 301.83 PD BORDERLINE 07/17/2010 LILA RUG INSPECTOR HELPER, BRYAN 295.70 P SCHIZO AFFECTIVE 07/17/2010 LILA RUG INSPECTOR HELPER, BRYAN 301.83 PD BORDERLINE 07/17/2010 LILA RUG INSPECTOR HELPER, BRYAN 295.70 P SCHIZO AFFECTIVE 07/17/2010 LILA RUG INSPECTOR HELPER, BRYAN 301.83 PD BORDERLINE 07/17/2010 VYAS DO, ALVARO K 295.70 P SCHIZO AFFECTIVE 07/17/2010 VYAS DO, ALVARO K 301.83 PD BORDERLINE 07/17/2010 VYAS DO, ALVARO K 295.70 P SCHIZO AFFECTIVE 07/17/2010 VYAS DO, ALVARO K 301.83 PD BORDERLINE 07/17/2010 LILA RUG INSPECTOR HELPER, BRYAN 295.70 P SCHIZO AFFECTIVE 07/17/2010 LILA RUG INSPECTOR HELPER, BRYAN 301.83 PD BORDERLINE 07/17/2010 LILA RUG INSPECTOR HELPER, BRYAN 295.70 P SCHIZO AFFECTIVE 07/17/2010 LILA RUG INSPECTOR HELPER, BRYAN 301.83 PD BORDERLINE 07/17/2010 LILA RUG INSPECTOR HELPER, BRYAN 295.70 P SCHIZO AFFECTIVE 07/17/2010 LILA RUG INSPECTOR HELPER, BRYAN 301.83 PD BORDERLINE 07/17/2010 LILA RUG INSPECTOR HELPER, BRAYN 295.70 P SCHIZO AFFECTIVE 07/17/2010 LILA RUG INSPECTOR HELPER, BRYAN 301.83 PD BORDERLINE 07/17/2010 LILA RUG INSPECTOR HELPER, BRYAN 295.70 P SCHIZO AFFECTIVE 07/17/2010 LILA RUG INSPECTOR HELPER, BRYAN 301.83 PD BORDERLINE 11/01/2010 Ot 682.3 [...] 278.01 OBESITY, MORBID (BMI >40) 02/22/2011 FINLEY RUG INSPECTOR HELPER, AFUA BOSWELL 401.1 HYPERTENSION, BENIGN ESSENTIAL 02/22/2011 TUSHAR GAYNiharika AFUA BOSWELL 278.01 OBESITY, MORBID (BMI >40) 02/22/2011 TUSHAR CHAUDHRY AFUA LIZAMAH 401.1 HYPERTENSION, BENIGN ESSENTIAL 02/22/2011 278.01 OBESITY, MORBID (BMI >40) 02/22/2011 401.1 HYPERTENSION, BENIGN ESSENTIAL 02/22/2011 FINLEYMONICO GAYNiharika AFUA LIZAMAH 278.01 OBESITY, MORBID (BMI >40) 02/22/2011 FINLEY RUG INSPECTOR HELPER, AFUA LIZAMAH 401.1 HYPERTENSION, BENIGN ESSENTIAL 02/22/2011 [...] 02/22/2011 401.1 HYPERTENSION, BENIGN ESSENTIAL 02/22/2011 FINLEY RUG INSPECTOR HELPER, AFUA BOSWELL 278.01 OBESITY, MORBID (BMI >40) 02/22/2011 FINLEY RUG INSPECTOR HELPER, AFUA ANDREIA 401.1 HYPERTENSION, BENIGN ESSENTIAL 02/22/2011 FINLEY RUG INSPECTOR HELPER, AFUA ANDREIA 278.01 OBESITY, MORBID (BMI >40) 02/22/2011 FINLEY RUG INSPECTOR HELPER, AFUA ANDREIA 401.1 HYPERTENSION, BENIGN ESSENTIAL 02/22/2011 FINLEY RUG INSPECTOR HELPER, AFUA ANDREIA 278.01 OBESITY, MORBID (BMI >40) 02/22/2011 FINLEY RUG INSPECTOR HELPER, AFUA ANDREIA 401.1 HYPERTENSION, BENIGN ESSENTIAL 02/22/2011 FINLEY RUG INSPECTOR HELPER, AFUA ANDREIA 278.01 OBESITY, MORBID (BMI >40) 02/22/2011 FINLEY RUG INSPECTOR HELPER, AFUA LIZAMAH 401.1 HYPERTENSION, BENIGN ESSENTIAL 02/22/2011 FINLEY RUG INSPECTOR HELPER, AFUA ANDREIA 278.01 OBESITY, MORBID (BMI >40) 02/22/2011 FINLEY RUG INSPECTOR HELPER, AFUA LIZAMAH 401.1 HYPERTENSION, BENIGN ESSENTIAL 02/22/2011 FINLEY RUG INSPECTOR HELPER, AFUA ANDREIA 278.01 OBESITY, MORBID (BMI >40) 02/22/2011 FINLEY RUG INSPECTOR HELPER, AFUA ANDREIA 401.1 HYPERTENSION, BENIGN ESSENTIAL 02/22/2011 FINLEY RUG INSPECTOR HELPER, AFUA ANDREIA 278.01 OBESITY, MORBID (BMI >40) 02/22/2011 FINLEY RUG INSPECTOR HELPER, AFUA ANDREIA 401.1 HYPERTENSION, BENIGN ESSENTIAL 02/22/2011 FINLEY RUG INSPECTOR HELPER, AFUA ANDREIA 278.01 OBESITY, MORBID (BMI >40) 02/22/2011 FINLEY RUG INSPECTOR HELPER, AFUA ANDREIA 401.1 HYPERTENSION, BENIGN ESSENTIAL 02/22/2011 FINLEY RUG INSPECTOR HELPER, AFUA ANDREIA 278.01 OBESITY, MORBID (BMI >40) 02/22/2011 FINLEY RUG INSPECTOR HELPER, AFUA ANDREIA 401.1 HYPERTENSION, BENIGN ESSENTIAL 02/22/2011 LILA RUG INSPECTOR HELPER, BRYAN 278.01 OBESITY, MORBID (BMI >40) 02/22/2011 LILA RUG INSPECTOR HELPER, BRYAN 401.1 HYPERTENSION, BENIGN ESSENTIAL 02/22/2011 ALVARO VYAS DO 278.01 OBESITY, MORBID (BMI >40) 02/22/2011 ASAEL CHAPMAN ALVARO K 401.1 HYPERTENSION, BENIGN ESSENTIAL 02/22/2011 LILA RUG INSPECTOR HELPER, BRYAN 278.01 OBESITY, MORBID (BMI >40) 02/22/2011 LILA RUG INSPECTOR HELPER, BRYAN 401.1 HYPERTENSION, BENIGN ESSENTIAL 02/22/2011 LILA RUG INSPECTOR HELPER, BRYAN 278.01 OBESITY, MORBID (BMI >40) 02/22/2011 LILA RUG INSPECTOR HELPER, BRYAN 401.1 HYPERTENSION, BENIGN ESSENTIAL 02/22/2011 LILA RUG INSPECTOR HELPER, BRYAN 278.01 OBESITY, MORBID (BMI >40) 02/22/2011 LILA RUG INSPECTOR HELPER, BRYAN 401.1 HYPERTENSION, BENIGN ESSENTIAL 02/22/2011 LILA RUG INSPECTOR HELPER, BRYAN 278.01 OBESITY, MORBID (BMI >40) 02/22/2011 LILA RUG INSPECTOR HELPER, BRYAN 401.1 HYPERTENSION, BENIGN ESSENTIAL 02/22/2011 ASAEL CHAPMAN ALVARO K 278.01 OBESITY, MORBID (BMI >40) 02/22/2011 ASAEL CHAPMAN ALVARO K 401.1 HYPERTENSION, BENIGN ESSENTIAL 02/22/2011 LILA RUG INSPECTOR HELPER, BRYAN 278.01 OBESITY, MORBID (BMI >40) 02/22/2011 LILA RUG INSPECTOR HELPER, BRYAN 401.1 HYPERTENSION, BENIGN ESSENTIAL 02/22/2011 LILA RUG INSPECTOR HELPER, BRYAN 278.01 OBESITY, MORBID (BMI >40) 02/22/2011 LILA RUG INSPECTOR HELPER, BRYAN 401.1 HYPERTENSION, BENIGN ESSENTIAL 02/22/2011 LILA RUG INSPECTOR HELPER, BRYAN 278.01 OBESITY, MORBID (BMI >40) 02/22/2011 LILA RUG INSPECTOR HELPER, BRYAN 401.1 HYPERTENSION, BENIGN ESSENTIAL 02/22/2011 LILA RUG INSPECTOR HELPER, BRYAN 278.01 OBESITY, MORBID (BMI >40) 02/22/2011 LILA RUG INSPECTOR HELPER, BRYAN 401.1 HYPERTENSION, BENIGN ESSENTIAL 02/22/2011 LILA RUG INSPECTOR HELPER, BRYAN 278.01 OBESITY, MORBID (BMI >40) 02/22/2011 LILA RUG INSPECTOR HELPER, BRYAN 401.1 HYPERTENSION, BENIGN ESSENTIAL 02/22/2011 ASAEL CHAPMAN ALVARO K 278.01 OBESITY, MORBID (BMI >40) 02/22/2011 ASAEL CHAPMAN ALVARO K 401.1 HYPERTENSION, BENIGN ESSENTIAL 02/22/2011 VYAS DO ALVARO K 278.01 OBESITY, MORBID (BMI >40) 02/22/2011 ALVARO VYAS DO 401.1 HYPERTENSION, BENIGN ESSENTIAL 02/22/2011 LILA RUG INSPECTOR HELPER, BRYAN 278.01 OBESITY, MORBID (BMI >40) 02/22/2011 LILA RUG INSPECTOR HELPER, BRYAN 401.1 HYPERTENSION, BENIGN ESSENTIAL 02/22/2011 LILA RUG INSPECTOR HELPER, BRYAN 278.01 OBESITY, MORBID (BMI >40) 02/22/2011 LILA RUG INSPECTOR HELPER, BRYAN 401.1 HYPERTENSION, BENIGN ESSENTIAL 02/22/2011 LILA RUG INSPECTOR HELPER, BRYAN 278.01 OBESITY, MORBID (BMI >40) 02/22/2011 LILA RUG INSPECTOR HELPER, BRYAN 401.1 HYPERTENSION, BENIGN ESSENTIAL 02/22/2011 LILA RUG INSPECTOR HELPER, BRYAN 278.01 OBESITY, MORBID (BMI >40) 02/22/2011 LILA RUG INSPECTOR HELPER, BRYAN 401.1 HYPERTENSION, BENIGN ESSENTIAL 02/22/2011 LILA RUG INSPECTOR HELPER, BRYAN 278.01 OBESITY, MORBID (BMI >40) 02/22/2011 LILA RUG INSPECTOR HELPER, BRYAN 401.1 HYPERTENSION, BENIGN ESSENTIAL 02/26/2011 TUSHAR CHAUDHRY AFUA ANDREIA 244.9 UNSPECIFIED ACQUIRED HYPOTHYROIDISM 02/26/2011 TUSHAR CHAUDHRY AFUA ANDREIA 250.00 DIABETES MELLITUS WITHOUT MENTION OF COMPLICATION TYPE II OR UNSPECIFIED TYPE NOT STATED UNCONTROLLED 02/26/2011 TUSHAR CHAUDHRY FAUA ANDREIA 719.47 PAIN IN JOINT INVOLVING ANKLE [...] UNSPECIFIED TYPE NOT STATED UNCONTROLLED 02/26/2011 LILA RUG INSPECTOR HELPER, BRYAN 719.47 PAIN IN JOINT INVOLVING ANKLE AND FOOT 02/26/2011 LILA RUG INSPECTOR HELPER, BRYAN V70.0 GENERAL MEDICAL EXAM, ROUTINE, AT HEALTH CARE FACILITY 02/26/2011 LILA RUG INSPECTOR HELPER, BRYAN 244.9 UNSPECIFIED ACQUIRED HYPOTHYROIDISM 02/26/2011 LILA RUG INSPECTOR HELPER, BRYAN 250.00 DIABETES MELLITUS WITHOUT MENTION OF COMPLICATION TYPE II OR UNSPECIFIED TYPE NOT STATED UNCONTROLLED 02/26/2011 LILA RUG INSPECTOR HELPER BRYAN 719.47 PAIN IN JOINT INVOLVING ANKLE AND FOOT 02/26/2011 LILA RUG INSPECTOR HELPER, BRYAN V70.0 GENERAL MEDICAL EXAM, ROUTINE, AT HEALTH CARE FACILITY 02/26/2011 LILA RUG INSPECTOR HELPER, BRYAN 244.9 UNSPECIFIED ACQUIRED HYPOTHYROIDISM 02/26/2011 LILA RUG INSPECTOR HELPER, BRYAN 250.00 DIABETES MELLITUS WITHOUT MENTION OF COMPLICATION TYPE II OR UNSPECIFIED TYPE NOT STATED UNCONTROLLED 02/26/2011 LILA CHAUDHRY BRYAN 719.47 PAIN IN JOINT INVOLVING ANKLE AND FOOT 02/26/2011 LILADINA CHAUDHRY, BRYAN V70.0 GENERAL MEDICAL EXAM, ROUTINE, AT HEALTH CARE FACILITY 02/26/2011 LILA RUG INSPECTOR HELPER, BRYAN 244.9 UNSPECIFIED ACQUIRED HYPOTHYROIDISM 02/26/2011 LILA RUG INSPECTOR HELPER, BRYAN 250.00 DIABETES MELLITUS WITHOUT MENTION OF [...] ROUTINE, AT HEALTH CARE FACILITY 02/26/2011 LILA RUG INSPECTOR HELPER, BRYAN 244.9 UNSPECIFIED ACQUIRED HYPOTHYROIDISM 02/26/2011 LILA RUG INSPECTOR HELPER, BRYAN 250.00 DIABETES MELLITUS WITHOUT MENTION OF COMPLICATION TYPE II OR UNSPECIFIED TYPE NOT STATED UNCONTROLLED 02/26/2011 LILA RUG INSPECTOR HELPER, BRYAN 719.47 PAIN IN JOINT INVOLVING ANKLE AND FOOT 02/26/2011 LILA RUG INSPECTOR HELPER, BRYAN V70.0 GENERAL MEDICAL EXAM, ROUTINE, AT HEALTH CARE FACILITY 02/26/2011 LILA RICHA BRYAN 244.9 UNSPECIFIED ACQUIRED HYPOTHYROIDISM 02/26/2011 LILA RUG INSPECTOR HELPER, BRYAN 250.00 DIABETES MELLITUS WITHOUT MENTION OF [...] BRYAN 244.9 UNSPECIFIED ACQUIRED HYPOTHYROIDISM 02/26/2011 LILA RUG INSPECTOR HELPER, BRYAN 250.00 DIABETES MELLITUS WITHOUT MENTION OF COMPLICATION TYPE II OR UNSPECIFIED TYPE NOT STATED UNCONTROLLED 02/26/2011 LILA RUG INSPECTOR HELPER, BRYAN 719.47 PAIN IN JOINT INVOLVING ANKLE AND FOOT 02/26/2011 LILA RUG INSPECTOR HELPER, BRYAN V70.0 GENERAL MEDICAL EXAM, ROUTINE, AT [...] ROUTINE, AT HEALTH CARE FACILITY 02/26/2011 LILA RUG INSPECTOR HELPER, BRYAN 244.9 UNSPECIFIED ACQUIRED HYPOTHYROIDISM 02/26/2011 LILA RUG INSPECTOR HELPER, BRYAN 250.00 DIABETES MELLITUS WITHOUT MENTION OF COMPLICATION TYPE II OR UNSPECIFIED TYPE NOT STATED UNCONTROLLED 02/26/2011 LILA RUG INSPECTOR HELPER, BRYAN 719.47 PAIN IN JOINT INVOLVING ANKLE AND FOOT 02/26/2011 LILA RUG INSPECTOR HELPER, BRYAN V70.0 GENERAL MEDICAL EXAM, ROUTINE, AT HEALTH CARE FACILITY 02/26/2011 LILA RUG INSPECTOR HELPER, BRYAN 244.9 UNSPECIFIED ACQUIRED HYPOTHYROIDISM 02/26/2011 LILA RUG INSPECTOR HELPER, BRYAN 250.00 DIABETES MELLITUS WITHOUT MENTION OF COMPLICATION TYPE II OR UNSPECIFIED TYPE NOT STATED UNCONTROLLED 02/26/2011 LILA RUG INSPECTOR HELPER, BRYAN 719.47 PAIN IN JOINT INVOLVING ANKLE AND FOOT 02/26/2011 LILA RUG INSPECTOR HELPER, BRYAN V70.0 GENERAL MEDICAL EXAM, ROUTINE, AT HEALTH CARE FACILITY 02/26/2011 LILA RUG INSPECTOR HELPER, BRYAN 244.9 UNSPECIFIED ACQUIRED HYPOTHYROIDISM 02/26/2011 LILA RUG INSPECTOR HELPER, BRYAN 250.00 DIABETES MELLITUS WITHOUT MENTION OF COMPLICATION TYPE II OR UNSPECIFIED TYPE NOT STATED UNCONTROLLED 02/26/2011 LILA RUG INSPECTOR HELPER, BRYAN 719.47 PAIN IN JOINT INVOLVING ANKLE AND FOOT 02/26/2011 LILA RUG INSPECTOR HELPER, BRYAN V70.0 GENERAL MEDICAL EXAM, ROUTINE, AT HEALTH CARE FACILITY 02/26/2011 LILA RUG INSPECTOR HELPER, BRYAN 244.9 UNSPECIFIED ACQUIRED HYPOTHYROIDISM 02/26/2011 LILA RUG INSPECTOR HELPER, BRYAN 250.00 DIABETES MELLITUS WITHOUT MENTION OF COMPLICATION TYPE II OR UNSPECIFIED TYPE NOT STATED UNCONTROLLED 02/26/2011 LILA RUG INSPECTOR HELPER, BRYAN 719.47 PAIN IN JOINT INVOLVING ANKLE [...] BOSWELL V58.69 MEDICATION HIGH RISK 03/03/2011 FINLEY RUG INSPECTOR HELPER, AFUA BOSWELL V58.69 MEDICATION HIGH RISK 03/03/2011 FINLEY RICHA AFUA BOSWELL V58.69 MEDICATION HIGH RISK 03/03/2011 FINLEY RUG INSPECTOR HELPER, AFUA BOSWELL V58.69 MEDICATION HIGH RISK 03/03/2011 FINLEY RICHA AFUA BOSWELL V58.69 MEDICATION HIGH RISK 03/03/2011 FINLEY RUG INSPECTOR HELPER, AFUA BOSWELL V58.69 MEDICATION HIGH RISK 03/03/2011 FINLEY RUG INSPECTOR HELPERAFUA V58.69 MEDICATION HIGH RISK 03/03/2011 LILA RUG INSPECTOR HELPER, BRYAN V58.69 MEDICATION HIGH RISK 03/03/2011 ALVARO VYAS DO K V58.69 MEDICATION HIGH RISK 03/03/2011 LILA RUG INSPECTOR HELPER, BRYAN V58.69 MEDICATION HIGH RISK 03/03/2011 LILA RUG INSPECTOR HELPER, BRYAN V58.69 MEDICATION HIGH RISK 03/03/2011 LLIA RUG INSPECTOR HELPER, BRYAN V58.69 MEDICATION HIGH RISK 03/03/2011 LILA RUG INSPECTOR HELPER, BRYAN V58.69 MEDICATION HIGH RISK 03/03/2011 ALVARO VYAS DO K V58.69 MEDICATION HIGH RISK 03/03/2011 LILA RUG INSPECTOR HELPER, BRYAN V58.69 MEDICATION HIGH RISK 03/03/2011 LILA RUG INSPECTOR HELPER, BRYAN V58.69 MEDICATION HIGH RISK 03/03/2011 LILA RUG INSPECTOR HELPER, BRYAN V58.69 MEDICATION HIGH RISK 03/03/2011 LILA RUG INSPECTOR HELPER, BRYAN V58.69 MEDICATION HIGH RISK 03/03/2011 LILA RUG INSPECTOR HELPER, BRYAN V58.69 MEDICATION HIGH RISK 03/03/2011 ASAEL CHAPMAN ALVARO K V58.69 MEDICATION HIGH RISK 03/03/2011 ASAEL CHAPMAN ALVARO K V58.69 MEDICATION HIGH RISK 03/03/2011 LILA RUG INSPECTOR HELPER, BRYAN V58.69 MEDICATION HIGH RISK 03/03/2011 LILA RUG INSPECTOR HELPER, BRYAN V58.69 MEDICATION HIGH RISK 03/03/2011 LILA RUG INSPECTOR HELPER, BRYAN V58.69 MEDICATION HIGH RISK 03/03/2011 LILA RUG INSPECTOR HELPER, BRYAN V58.69 MEDICATION HIGH RISK 03/03/2011 LILA RUG INSPECTOR HELPER, BRYAN V58.69 MEDICATION HIGH RISK 03/20/2011 Ot [...] P SCHIZO PARANOID UNSPECIFIED 01/19/2013 FINLEYMONICO CHAUDHRY AUFA BOSWELL 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 01/19/2013 LILA RUG INSPECTOR HELPER, BRYAN 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 01/19/2013 ALVARO VYAS DO 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 01/19/2013 LILA RUG INSPECTOR HELPER, BRYAN 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 01/19/2013 LILA RUG INSPECTOR HELPER, BRYAN 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 01/19/2013 LILA RUG INSPECTOR HELPER, BRYAN 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 01/19/2013 LILA RUG INSPECTOR HELPER, BRYAN 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 01/19/2013 ALVARO VYAS DO K 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 01/19/2013 LILA RUG INSPECTOR HELPER, BRYAN 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 01/19/2013 LILA RUG INSPECTOR HELPER, BRYAN 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 01/19/2013 LILA RUG INSPECTOR HELPER, BRYAN 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 01/19/2013 LILA RUG INSPECTOR HELPER, BRYAN 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 01/19/2013 LILA RUG INSPECTOR HELPER, BRYAN 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 01/19/2013 ALVARO VYAS DO K 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 01/19/2013 ALVARO VYAS DO K 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 01/19/2013 LILA RUG INSPECTOR HELPER, BRYAN 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 01/19/2013 LILA RUG INSPECTOR HELPER, BRYAN 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 01/19/2013 LILA RUG INSPECTOR HELPER, BRYAN 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 01/19/2013 LILA RUG INSPECTOR HELPER, BRYAN 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 01/19/2013 LILA RUG INSPECTOR HELPER, BRYAN 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 02/08/2013 [...] 965.8 POIS-ANALGES/ ANTIPYR NEC 02/10/2013 Ot 968.0 POIS-CHIEF TECHNICIAN MUSCLE DEPRESS 02/10/2013 Ot 969.3 POISON- ANTIPSYCHOTIC [...] FINLEY APRN 309.81 AN PTSD 07/18/2013 LILA RUG INSPECTOR HELPER, BRYAN 309.81 AN PTSD 07/18/2013 VYAS DO ALVARO K 309.81 AN PTSD 07/18/2013 LILA RUG INSPECTOR HELPER, BRYAN 309.81 AN PTSD 07/18/2013 LILA RUG INSPECTOR HELPER, BRYAN 309.81 AN PTSD 07/18/2013 LILA RUG INSPECTOR HELPER, BRYAN 309.81 AN PTSD 07/18/2013 LILA RUG INSPECTOR HELPER, BRYAN 309.81 AN PTSD 07/18/2013 VYAS EGE CHAPMANA K 309.81 AN PTSD 07/18/2013 LILA RUG INSPECTOR HELPER, BRYAN 309.81 AN PTSD 07/18/2013 LILA RUG INSPECTOR HELPER, BRYAN 309.81 AN PTSD 07/18/2013 LILA RUG INSPECTOR HELPER, BRYAN 309.81 AN PTSD 07/18/2013 LILA RUG INSPECTOR HELPER, BRYAN 309.81 AN PTSD 07/18/2013 LILA RUG INSPECTOR HELPER, BRYAN 309.81 AN PTSD 07/18/2013 VYAS GEE CHAPMANA K 309.81 AN PTSD 07/18/2013 GEE VYAS DOA K 309.81 AN PTSD 07/18/2013 LILA RUG INSPECTOR HELPER, BRYAN 309.81 AN PTSD 07/18/2013 LILA RUG INSPECTOR HELPER, BRYAN 309.81 AN PTSD 07/18/2013 LILA RUG INSPECTOR HELPER, BRYAN 309.81 AN PTSD 07/18/2013 LILA RUG INSPECTOR HELPER, BRYAN 309.81 AN PTSD 07/18/2013 LILA RUG INSPECTOR HELPER, BRYAN 309.81 AN PTSD 09/03/2013 AFUA FINLEY APRN 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 09/03/2013 FINLEY AFUA CHAUDHRY 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 09/03/2013 FINLEY RUG INSPECTOR HELPERAFUA BundyH 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 09/03/2013 FINLEY RUG INSPECTOR HELPERAFUA BundyH 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 09/03/2013 FNILEY AFUA CHAUDHRYH 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 09/03/2013 FINLEY RUG INSPECTOR HELPERAFUA BundyH 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 09/03/2013 LILA RUG INSPECTOR HELPER, BRYAN 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 09/03/2013 ALVARO VYAS DO K 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 09/03/2013 LILA RUG INSPECTOR HELPER, BRYAN 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 09/03/2013 LILA RUG INSPECTOR HELPER, BRYAN 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 09/03/2013 LILA RUG INSPECTOR HELPER, BRYAN 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 09/03/2013 LILA RUG INSPECTOR HELPER, BRYAN 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 09/03/2013 VYAS ALVARO K 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 09/03/2013 LILA RUG INSPECTOR HELPER, BRYAN 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 09/03/2013 LILA RUG INSPECTOR HELPER, BRYAN 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 09/03/2013LILA RUG INSPECTOR HELPER, BRYAN 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 09/03/2013LILA RUG INSPECTOR HELPER, BRYAN 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 09/03/2013 LILA RUG INSPECTOR HELPER, BRYAN 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 09/03/2013 ASAEL CHAPMAN ALVARO K 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 09/03/2013 VYAS , ALVARO K 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 09/03/2013 LILA RUG INSPECTOR HELPER, BRYAN 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 09/03/2013 LILA RUG INSPECTOR HELPER, BRYAN 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 09/03/2013LILA RUG INSPECTOR HELPER, BRYAN 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 09/03/2013LILA RUG INSPECTOR HELPER, BRYAN 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 09/03/2013 LILA RUG INSPECTOR HELPER, BRYAN 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 [...] USE OF INSULIN 09/07/2013 DAX GUERRA, DARRICK iFore Ot V58.69 OTH MED,LT,CURRENT USE 09/25/2013 AFUA FINLEY APRN 300.3 AN OBCESS COMP DIS 09/25/2013 AFUA FINLEY APRN 300.3 AN OBCESS COMP DIS 09/25/2013 AFUA FINLEY APRN 300.3 AN OBCESS COMP DIS 09/25/2013 TUSHAR CHAUDHRY, AFUA BOSWELL 300.3 AN OBCESS COMP DIS 09/25/2013 TUSHAR CHAUDHRY, AFUA BOSWELL 300.3 AN OBCESS COMP DIS 09/25/2013 LILA RUG INSPECTOR HELPER, BRYAN 300.3 AN OBCESS COMP DIS 09/25/2013 VYAS DO, ALVARO K 300.3 AN OBCESS COMP DIS 09/25/2013 LILA RUG INSPECTOR HELPER, BRYAN 300.3 AN OBCESS COMP DIS 09/25/2013 LILA RUG INSPECTOR HELPER, BRYAN 300.3 AN OBCESS COMP DIS 09/25/2013 LILA RUG INSPECTOR HELPER, BRYAN 300.3 AN OBCESS COMP DIS 09/25/2013 LILA RUG INSPECTOR HELPER, BRYAN 300.3 AN OBCESS COMP DIS 09/25/2013 VYAS DO, ALVARO K 300.3 AN OBCESS COMP DIS 09/25/2013 LILA RUG INSPECTOR HELPER, BRYAN 300.3 AN OBCESS COMP DIS 09/25/2013 LILA RUG INSPECTOR HELPER, BRYAN 300.3 AN OBCESS COMP DIS 09/25/2013 LILA RUG INSPECTOR HELPER, BRYAN 300.3 AN OBCESS COMP DIS 09/25/2013 LILA RUG INSPECTOR HELPER, BRYAN 300.3 AN OBCESS COMP DIS 09/25/2013 LILA RUG INSPECTOR HELPER, BRYAN 300.3 AN OBCESS COMP DIS 09/25/2013 VYAS DO, ALVARO K 300.3 AN OBCESS COMP DIS 09/25/2013 VYAS DO, ALVARO K 300.3 AN OBCESS COMP DIS 09/25/2013 LILA RUG INSPECTOR HELPER, BRYAN 300.3 AN OBCESS COMP DIS 09/25/2013 LILA RUG INSPECTOR HELPER, BRYAN 300.3 AN OBCESS COMP DIS 09/25/2013 LILA RUG INSPECTOR HELPER, BRYAN 300.3 AN OBCESS COMP DIS 09/25/2013 LILA RUG INSPECTOR HELPER, BRYAN 300.3 AN OBCESS COMP DIS 09/25/2013 [...] DO 296.80 MO BIPOLAR NOS 03/08/2014 LILA RUG INSPECTOR HELPER, BRYAN 296.80 MO BIPOLAR NOS 03/08/2014 LILA RUG INSPECTOR HELPER, BRYAN 296.80 MO BIPOLAR NOS 03/08/2014 LILA RUG INSPECTOR HELPER, BRYAN 296.80 MO BIPOLAR NOS 03/08/2014 LILA RUG INSPECTOR HELPER, BRYAN 296.80 MO BIPOLAR NOS 03/08/2014 VYAS DO ALVARO K 296.80 MO BIPOLAR NOS 03/08/2014 LILA RUG INSPECTOR HELPER, BRYAN 296.80 MO BIPOLAR NOS 03/08/2014 LILA RUG INSPECTOR HELPER, BRYAN 296.80 MO BIPOLAR NOS 03/08/2014 LILA RUG INSPECTOR HELPER, BRYAN 296.80 MO BIPOLAR NOS 03/08/2014 LILA RUG INSPECTOR HELPER, BRYAN 296.80 MO BIPOLAR NOS 03/08/2014 LILA RUG INSPECTOR HELPER, BRYAN 296.80 MO BIPOLAR NOS 03/08/2014 VYAS DO, ALVARO K 296.80 MO BIPOLAR NOS 03/08/2014 VYAS DO, ALVARO K 296.80 MO BIPOLAR NOS 03/08/2014 LILA RUG INSPECTOR HELPER, BRYAN 296.80 MO BIPOLAR NOS 03/08/2014 LILA RUG INSPECTOR HELPER, BRYAN 296.80 MO BIPOLAR NOS 03/08/2014 LILA RUG INSPECTOR HELPER, BRYAN 296.80 MO BIPOLAR NOS 03/08/2014 LILA RUG INSPECTOR HELPER, BRYAN 296.80 MO BIPOLAR NOS 03/08/2014 LILA RUG INSPECTOR HELPER, BRYAN 296.80 MO BIPOLAR NOS 03/11/2014 FINLEY RICHA AFUA BOSWELL 296.80 MO BIPOLAR NOS 03/11/2014 FINLEY RICHA AFUA BOSWELL 300.02 AN GEN ANXIETY 03/11/2014 FINLEY RICHA AFUA BOSWELL 314.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 03/11/2014 LILA RUG INSPECTOR HELPER, BRYAN 296.80 MO BIPOLAR NOS 03/11/2014 LILA RUG INSPECTOR HELPER, BRYAN 300.02 AN GEN ANXIETY 03/11/2014 LILA RUG INSPECTOR HELPER, BRYAN 314.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 03/11/2014 VYAS GEE CHAPMANA K 296.80 MO BIPOLAR NOS 03/11/2014 VYAS DO ALVARO K 300.02 AN GEN ANXIETY 03/11/2014 VYAS DO ALVARO K 314.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 03/11/2014 LILA RUG INSPECTOR HELPER, BRYAN 296.80 MO BIPOLAR NOS 03/11/2014 LILA RUG INSPECTOR HELPER, BRYAN 300.02 AN GEN ANXIETY 03/11/2014 LILA RUG INSPECTOR HELPER, BRYAN 314.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 03/11/2014 LILA RUG INSPECTOR HELPER, BRYAN 296.80 MO BIPOLAR NOS 03/11/2014 LILA RUG INSPECTOR HELPER, BRYAN 300.02 AN GEN ANXIETY 03/11/2014 LILA RUG INSPECTOR HELPER, BRYAN 314.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 03/11/2014 LILA RUG INSPECTOR HELPER, BRYAN 296.80 MO BIPOLAR NOS 03/11/2014 LILA RUG INSPECTOR HELPER, BRYAN 300.02 AN GEN ANXIETY 03/11/2014 LILA RUG INSPECTOR HELPER, BRYAN 314.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 03/11/2014 LILA RUG INSPECTOR HELPER, BRYAN 296.80 MO BIPOLAR NOS 03/11/2014 LILA RUG INSPECTOR HELPER, BRYAN 300.02 AN GEN ANXIETY 03/11/2014 LILA RUG INSPECTOR HELPER, BRYAN 314.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 03/11/2014 GEE VYAS DOA K 296.80 MO BIPOLAR NOS 03/11/2014 VYAS GEE CHAPMANA K 300.02 AN GEN ANXIETY 03/11/2014 VYAS GEE CHAPMANA K 314.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 03/11/2014 LILA RUG INSPECTOR HELPER, BRYAN 296.80 MO BIPOLAR NOS 03/11/2014 LILA RUG INSPECTOR HELPER, BRYAN 300.02 AN GEN ANXIETY 03/11/2014 LILA RUG INSPECTOR HELPER, BRYAN 314.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 03/11/2014 LILA RUG INSPECTOR HELPER, BRYAN 296.80 MO BIPOLAR NOS 03/11/2014 LILA RUG INSPECTOR HELPER, BRYAN 300.02 AN GEN ANXIETY 03/11/2014 LILA RUG INSPECTOR HELPER, BRYAN 314.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 03/11/2014 LILA RUG INSPECTOR HELPER, BRYAN 296.80 MO BIPOLAR NOS 03/11/2014 LILA RUG INSPECTOR HELPER, BRYAN 300.02 AN GEN ANXIETY 03/11/2014 LILA RUG INSPECTOR HELPER, BRYAN 314.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 03/11/2014 LILA RUG INSPECTOR HELPER, BRYAN 296.80 MO BIPOLAR NOS 03/11/2014 LILA RUG INSPECTOR HELPER, BRYAN 300.02 AN GEN ANXIETY 03/11/2014 LILA RUG INSPECTOR HELPER, BRYAN 314.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 03/11/2014 LILA RUG INSPECTOR HELPER, BRYAN 296.80 MO BIPOLAR NOS 03/11/2014 LILA RUG INSPECTOR HELPER, BRYAN 300.02 AN GEN ANXIETY 03/11/2014 LILA RUG INSPECTOR HELPER, BRYAN 314.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 03/11/2014 GEE VAYS DOA K 296.80 MO BIPOLAR NOS 03/11/2014 VYAS GEE CHAPMANA K 300.02 AN GEN ANXIETY 03/11/2014 VYAS GEE CHAPMANA K 314.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 03/11/2014 ALVARO VYAS DO K 296.80 MO BIPOLAR NOS 03/11/2014 ASAEL CHAPMAN ALVARO K 300.02 AN GEN ANXIETY 03/11/2014 ASAEL CHAPMAN ALVARO K 314.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 03/11/2014 LILA RUG INSPECTOR HELPER, BRYAN 296.80 MO BIPOLAR NOS 03/11/2014 LIAL RUG INSPECTOR HELPER, BRYAN 300.02 AN GEN ANXIETY 03/11/2014 LILA RUG INSPECTOR HELPER, BRYAN 314.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 03/11/2014 LILA RUG INSPECTOR HELPER, BRYAN 296.80 MO BIPOLAR NOS 03/11/2014 LILA RUG INSPECTOR HELPER, BRYAN 300.02 AN GEN ANXIETY 03/11/2014 LILA RUG INSPECTOR HELPER, BRYAN 314.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 03/11/2014 LILA RUG INSPECTOR HELPER, BRYAN 296.80 MO BIPOLAR NOS 03/11/2014 LILA RUG INSPECTOR HELPER, BRYAN 300.02 AN GEN ANXIETY 03/11/2014 LILA RUG INSPECTOR HELPER, BRYAN 314.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 03/11/2014 LILA RUG INSPECTOR HELPER, BRYAN 296.80 MO BIPOLAR NOS 03/11/2014 LILA RUG INSPECTOR HELPER, BRYAN 300.02 AN GEN ANXIETY 03/11/2014 LILA RUG INSPECTOR HELPER, BRYAN 314.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 03/11/2014 LILA RUG INSPECTOR HELPER, BRYAN 296.80 MO BIPOLAR NOS 03/11/2014 LILA RUG INSPECTOR HELPER, BRYAN 300.02 AN GEN ANXIETY 03/11/2014 LILA RUG INSPECTOR HELPER, BRYAN 314.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 05/02/2014 ESAU BERRY DO Ot 250.00 DIAB [place] WO COMPL, TYPE II OR UNSPEC TY 05/02/2014 ESAU BERRY DO Ot 575.11 CHRONIC CHOLECYSTITIS 06/05/2014 LILA RUG INSPECTOR HELPER, BRYAN 295.11 P SCHIZO DISORG SUBCHRONIC 06/05/2014 LILA RUG INSPECTOR HELPER, BRYAN 295.11 P SCHIZO DISORG SUBCHRONIC 06/05/2014 LILA RUG INSPECTOR HELPER, BRYAN 295.11 P SCHIZO DISORG SUBCHRONIC 06/05/2014 LILA RUG INSPECTOR HELPER, BRYAN 295.11 P SCHIZO DISORG SUBCHRONIC 06/05/2014 LILA RUG INSPECTOR HELPER, BRYAN 295.11 P SCHIZO DISORG SUBCHRONIC 06/05/2014 ALVARO VYAS DO K 295.11 P SCHIZO DISORG SUBCHRONIC 06/05/2014 ALVARO VYAS DO 295.11 P SCHIZO DISORG SUBCHRONIC 06/05/2014 LILA RUG INSPECTOR HELPER, BRYAN 295.11 P SCHIZO DISORG SUBCHRONIC 06/05/2014 LILA RUG INSPECTOR HELPER, BRYAN 295.11 P SCHIZO DISORG SUBCHRONIC 06/05/2014 LILA RUG INSPECTOR HELPER, BRYAN 295.11 P SCHIZO DISORG SUBCHRONIC 06/05/2014 LILA RUG INSPECTOR HELPER, BRYAN 295.11 P SCHIZO DISORG SUBCHRONIC 06/05/2014 LILA RUG INSPECTOR HELPER, BRYAN 295.11 P SCHIZO DISORG SUBCHRONIC 06/19/2014 TANYA GONZALEZ RUG INSPECTOR HELPER Ot 784.0 HEADACHE 07/14/2014 DAX GUERRA, DARRICK Fiore Ot 346.90 MIGRAINE UNSPECIFIED W/O INTRACT MGRN W/ 09/18/2014 ADAIR LUCERO SUPERINTENDENT DRILLING AND PRODUCTION Ot 250.00 09/18/2014 ADAIR LUCERO SUPERINTENDENT DRILLING AND PRODUCTION Ot V58.67 10/07/2014 ADAIR LUCERO SUPERINTENDENT DRILLING AND PRODUCTION Ot 250.00 10/07/2014 ADAIR LUCERO SUPERINTENDENT DRILLING AND PRODUCTION Ot V58.67 12/06/2014 OLGA LUCERO MD R [...] MD R Ot 530.81 ESOPHAGEAL REFLUX 12/06/2014 OLAG LUCERO MD R Ot 599.0 URIN TRACT INFECTION NOS 12/06/2014 OLGA LUCERO MD R Ot V06.1 [id number], COMBINED [ 12/06/2014 OLGA LUCERO MD R Ot V58.67 LONG-TERM (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 INSULIN 06/12/2015 GAURANG STANTON DO Ot 339.12 CHRONIC TENSION TYPE HEADACHE 06/12/2015 GAURANG STANTON DO Ot 784.0 HEADACHE 07/30/2015 JAZMINE GUERRA, OLGA R Ot 786.2 08/05/2015 JAZMINE GUERRA, OLGA R Ot 786.2 08/11/2015 JAZMINE GUERRA, OLGA R Ot R19.7 08/19/2015 ADAIR LUCERO SUPERINTENDENT DRILLING AND PRODUCTION Ot E11.9 09/01/2015 ADAIR LUCERO SUPERINTENDENT DRILLING AND PRODUCTION Ot E11.9 09/23/2015 JAZMINE GUERRA, OLGA R [...] GUERRA, OLGA R Ot 719.7 01/29/2016 TUSHARAFUA SUPERINTENDENT DRILLING AND PRODUCTION Ot V58.69 01/29/2016 TUSHARAFUA SUPERINTENDENT DRILLING AND PRODUCTION Ot V58.83 01/29/2016 JAZMINE ADAIR Kya SUPERINTENDENT DRILLING AND PRODUCTION Ot 250.00 01/29/2016 JAZMINE ADAIR Boland SUPERINTENDENT DRILLING AND PRODUCTION Ot 244.9 01/29/2016 LIZZIE LUCEROAN Kya SUPERINTENDENT DRILLING AND PRODUCTION Ot 250.00 01/29/2016 JAZMINE GUERRA, OLGA R Ot 571.8 01/29/2016 JAZMINE GUERRA, OLGA R Ot 789.01 01/29/2016 JAZMINE GUERRA, OLGA R Ot 789.01 01/29/2016 JAZMINE GUERRA, OLGA R Ot 793.3 01/29/2016 ATKINS ESAU CHAPMAN Ot 575.11 01/29/[facility]63 01/29[facility] V74.8 01/29/2016 JAZMINE ADAIR Kya SUPERINTENDENT DRILLING AND PRODUCTION Ot 250.01 01/29/2016 JAZMINE ADAIR Kya SUPERINTENDENT DRILLING AND PRODUCTION Ot 250.00 01/29/2016 ADAIR LUCERO SUPERINTENDENT DRILLING AND PRODUCTION Ot V58.67 01/29/2016 JZAMINE GUERRA, OLGA R Ot 786.2 01/29/2016 ADAIR LUCERO SUPERINTENDENT DRILLING AND PRODUCTION Ot E11.9 01/29/2016 SUYAPA GUERRA, JEAN-CLAUDEAASAHRA Ot [...] 719.7 DIFFICULTY IN WALKING 06/04/2016 AFUA FINLEY SUPERINTENDENT DRILLING AND PRODUCTION Ot V58.69 OT MED,LT,CURRENT USE 06/04/2016 AFUA FINLEY SUPERINTENDENT DRILLING AND PRODUCTION Ot V58.83 ENCOUNTER FOR THERAPEUTIC DRUG MONITORIN 06/04/2016 ADAIR LUCERO SUPERINTENDENT DRILLING AND PRODUCTION Ot 250.00 DIAB [place] WO COMPL, TYPE II OR UNSPEC TY 06/04/2016 ADAIR LUCERO SUPERINTENDENT DRILLING AND PRODUCTION Ot 244.9 HYPOTHYROIDISM NOS 06/04/2016 ADAIR LUCERO SUPERINTENDENT DRILLING AND PRODUCTION Ot 250.00 DIAB [place] WO COMPL, TYPE [...] V74.8 SCREEN-BACTERIAL DIS NEC 06/04/2016 ADAIR LUCERO SUPERINTENDENT DRILLING AND PRODUCTION Ot 250.01 DIAB [place] WO COMPL, TYPE I [JUVENILE TYP 06/04/2016 ADAIR LUCERO SUPERINTENDENT DRILLING AND PRODUCTION Ot 250.00 DIAB [place] WO COMPL, TYPE II OR UNSPEC TY 06/04/2016 ADAIR LUCERO Ot V58.67 LONG-TERM (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 INSULIN 06/04/2016 JAZMINE GUERRA, OLGA R Ot 786.2 COUGH 06/04/2016 ADAIR LUCERO Ot E11.9 TYPE 2 DIABETES MELLITUS WITHOUT COMPLIC 06/04/2016 SUYAPA GUERRA, TREVIN Ot R19.4 CHANGE IN BOWEL HABIT 06/04/2016 SUYAPA UGERRA, TREVIN Ot Z01.818 ENCOUNTER FOR OTHER PREPROCEDURAL [...] 719.7 DIFFICULTY IN WALKING 09/23/2016 AFUA FINLEY SUPERINTENDENT DRILLING AND PRODUCTION Ot V58.69 OT MED,LT,CURRENT USE 09/23/2016 AFUA FINLEY Ot V58.83 ENCOUNTER FOR THERAPEUTIC DRUG MONITORIN 09/23/2016 ADAIR LUCERO SUPERINTENDENT DRILLING AND PRODUCTION Ot 250.00 DIAB [place] WO COMPL, TYPE II OR UNSPEC TY 09/23/2016 ADAIR LUCERO SUPERINTENDENT DRILLING AND PRODUCTION Ot 244.9 HYPOTHYROIDISM NOS 09/23/2016 ADAIR LUCERO SUPERINTENDENT DRILLING AND PRODUCTION Ot 250.00 DIAB [place] WO COMPL, TYPE [...] TYPE I [JUVENILE TYP 09/23/2016 ADAIR LUCERO SUPERINTENDENT DRILLING AND PRODUCTION Ot 250.00 DIAB [place] WO COMPL, TYPE [...] DIABETES MELLITUS WITHOUT COMPLIC 09/23/2016 ADAIR LUCERO SUPERINTENDENT DRILLING AND PRODUCTION Ot Z79.4 FRONT DESK ASSISTANT (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 INSULIN 09/24/2016 ADAIR LUCERO SUPERINTENDENT DRILLING AND PRODUCTION Ot E11.9 TYPE 2 DIABETES MELLITUS WITHOUT COMPLIC 09/24/2016 ADAIR LUCEROP Ot Z79.4 FRONT DESK ASSISTANT (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 INSULIN 09/29/2016 ADAIR LUCERO SUPERINTENDENT DRILLING AND PRODUCTION Ot E11.9 TYPE 2 DIABETES MELLITUS WITHOUT COMPLIC 09/29/2016 ADAIR LUCEROP Ot Z79.4 FRONT DESK ASSISTANT (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 INSULIN 10/21/2016 SEGLIE, ADAIR M SUPERINTENDENT DRILLING AND PRODUCTION Ot E11.9 TYPE 2 DIABETES MELLITUS WITHOUT COMPLIC 10/21/2016 ADAIR LUCERO SUPERINTENDENT DRILLING AND PRODUCTION Ot Z79.4 HALFWAY (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 INSULIN 10/26/2016 ADAIR LUCERO SUPERINTENDENT DRILLING AND PRODUCTION Ot E11.9 TYPE 2 DIABETES MELLITUS WITHOUT COMPLIC 10/26/2016 ADAIR LUCERO SUPERINTENDENT DRILLING AND PRODUCTION Ot Z79.4 HALFWAY (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 INSULIN 01/25/2017 FRANCISCO ALAN DO Ot E11.65 TYPE 2 DIABETES MELLITUS WITH HYPERGLYCE 01/25/2017 FRANCISCO ALAN DO Ot Z79.4 HALFWAY (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 INSULIN 01/25/2017 FRANCISCO ALAN DO Ot Z79.84 FRONT DESK ASSISTANT (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 ORAL HYPOGLYC 01/25/2017 FRANCISCO ALAN DO Ot Z79.899 OTHER HALFWAY (CURRENT) DRUG THERAPY 01/26/2017 FRANCISCO ALAN DO Ot E11.65 TYPE 2 DIABETES MELLITUS WITH HYPERGLYCE 01/26/2017 FRANCISCO ALAN DO Ot Z79.4 FRONT DESK ASSISTANT (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 INSULIN 01/26/2017 FRANCISCO ALAN DO Ot Z79.84 FRONT DESK ASSISTANT (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 ORAL HYPOGLYC 01/26/2017 FRANCISCO ALAN DO Ot Z79.899 OTHER FRONT DESK ASSISTANT (CURRENT) DRUG THERAPY 03/24/2017 Ot 250.00 DIAB [...] WITHOUT 05/03/2017 JOHN LEE MD Ot Z79.4 FRONT DESK ASSISTANT (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 INSULIN 05/03/2017 JOHN LEE MD Ot Z79.84 HALFWAY (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 ORAL HYPOGLYC 05/03/2017 JOHN [...] H57.11 OCULAR PAIN, RIGHT EYE 05/03/2017 JOHN ELE MD, Ot K21.9 GASTRO-ESOPHAGEAL REFLUX DISEASE WITHOUT 05/03/2017 JOHN LEE MD Ot Z79.4 FRONT DESK ASSISTANT (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 INSULIN 05/03/2017 JOHN LEE MD Ot Z79.84 FRONT DESK ASSISTANT (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 ORAL HYPOGLYC 05/03/2017 JOHN [...] UNSPECIFIED 07/09/2017 IVORY DICKSON MD Ot Z79.4 HALFWAY (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 INSULIN 07/09/2017 IVORY DICKSON MD Ot Z79.84 HALFWAY (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 ORAL HYPOGLYC 07/09/2017 IVORY [...] 719.7 DIFFICULTY IN WALKING 07/09/2017 AFUA FINLEY SUPERINTENDENT DRILLING AND PRODUCTION Ot V58.69 OTH MED,LT,CURRENT USE 07/09/2017 AFUA FINLEY SUPERINTENDENT DRILLING AND PRODUCTION Ot V58.83 ENCOUNTER FOR THERAPEUTIC DRUG MONITORIN 07/09/2017 ADAIR LUCERO SUPERINTENDENT DRILLING AND PRODUCTION Ot 250.00 DIAB [place] WO COMPL, TYPE II OR UNSPEC TY 07/09/2017 ADAIR LUCERO SUPERINTENDENT DRILLING AND PRODUCTION Ot 244.9 HYPOTHYROIDISM NOS 07/09/2017 ADAIR LUCERO SUPERINTENDENT DRILLING AND PRODUCTION Ot 250.00 DIAB [place] WO COMPL, TYPE [...] WITHOUT COMPLIC 07/09/2017 ADAIR LUCERO Ot Z79.4 HALFWAY (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 INSULIN 07/11/2017 IVORY DICKSON [...] UNSPECIFIED 07/11/2017 IVORY DICKSON MD Ot Z79.4 HALFWAY (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 INSULIN 07/11/2017 IVORY DICKSON MD Ot Z79.84 FRONT DESK ASSISTANT (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 ORAL HYPOGLYC 07/11/2017 IVORY [...] PAIN 07/29/2017 IVORY DICKSON MD Ot Z79.4 FRONT DESK ASSISTANT (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 INSULIN 07/29/2017 IVORY DICKSON [...] V58.69 OTH MED,LT,CURRENT USE 12/23/2017 AFUA FINLEY SUPERINTENDENT DRILLING AND PRODUCTION Ot V58.83 ENCOUNTER FOR THERAPEUTIC DRUG MONITORIN [...] V74.8 SCREEN-BACTERIAL DIS NEC 12/23/2017 ADAIR LUCERO SUPERINTENDENT DRILLING AND PRODUCTION Ot 250.01 DIAB [place] WO COMPL, TYPE [...] WITHOUT COMPLIC 12/23/2017 ADAIR LUCERO Ot Z79.4 HALFWAY (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 INSULIN 12/23/2017 JAZMINE GUERRA, OLGA R Ot 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, UNSPEC 12/23/2017 TINY ALMENDAREZ RUG INSPECTOR HELPER Ot E03.9 HYPOTHYROIDISM, UNSPECIFIED 12/23/2017 TINY ALMENDAREZ RUG INSPECTOR HELPER Ot E10.9 TYPE 1 DIABETES MELLITUS WITHOUT [...] G43.909 MIGRAINE, UNSP, NOT INTRACTABLE, WITHOUT 12/27/2017 ROMY DO, GAURANG K Ot K21.9 GASTRO-ESOPHAGEAL REFLUX DISEASE WITHOUT 12/27/2017 ROMY DO, GAURANG K Ot K42.9 UMBILICAL HERNIA WITHOUT OBSTRUCTION OR 12/27/2017 ROMY DO, GAURANG K Ot K59.00 CONSTIPATION, UNSPECIFIED 12/27/2017 ROMY DO, GAURANG K Ot R10.10 UPPER ABDOMINAL PAIN, UNSPECIFIED 12/27/2017 ROMY DO, GAURANG K Ot Z79.4 FRONT DESK ASSISTANT (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 INSULIN 12/27/2017 ROMY DO, GAURANG K Ot Z79.52 HALFWAY (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 SYSTEMIC STER 12/27/2017 ROMY DO, GAURANG K Ot Z88.0 ALLERGY STATUS TO PENICILLIN 12/27/2017 ROMY DO, GAURANG K Ot Z88.1 ALLERGY STATUS TO OTHER ANTIBIOTIC AGENT 12/27/2017 ROMY DO, GAURANG K Ot Z90.49 ACQUIRED ABSENCE OF OTHER SPECIFIED PART 12/27/2017 TINY ALMENDAREZ RUG INSPECTOR HELPER Ot E03.9 HYPOTHYROIDISM, UNSPECIFIED 12/27/2017 TINY ALMENDAREZ RUG INSPECTOR HELPER Ot E10.9 TYPE 1 DIABETES MELLITUS WITHOUT COMPLIC 12/27/2017 TINY ALMENDAREZ RUG INSPECTOR HELPER Ot R42 DIZZINESS AND GIDDINESS 12/29/2017 ROMY [...] 12/29/2017 ROMY , GAURANG K Ot Z79.4 FRONT DESK ASSISTANT (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 INSULIN 12/29/2017 ROMY , GAURANG K Ot Z79.52 HALFWAY (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 SYSTEMIC STER 12/29/2017 ROMY [...] ADULT 01/30/2018 INDY MCCLAIN MD Ot Z79.4 HALFWAY (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 INSULIN 01/30/2018 INDY MCCLAIN MD Ot Z79.899 OTHER FRONT DESK ASSISTANT (CURRENT) DRUG THERAPY 03/12/2018 TWILA LAWLER MD Ot E03.9 HYPOTHYROIDISM, UNSPECIFIED 03/12/2018 TWILA LAWLER MD Ot E11.9 TYPE 2 DIABETES MELLITUS WITHOUT COMPLIC 03/12/2018 TWILA LAWLER MD Ot E66.9 OBESITY, UNSPECIFIED 03/12/2018 TWILA LAWLER MD Ot F17.210 NICOTINE DEPENDENCE, CIGARETTES, UNCOMPL 03/12/2018 TWILA LAWLER MD Ot F20.9 SCHIZOPHRENIA, UNSPECIFIED 03/12/2018 TWILA LAWLER MD Ot F32.9 MAJOR DEPRESSIVE DISORDER, SINGLE EPISOD 03/12/2018 TWILA LAWLER MD Ot F41.9 ANXIETY DISORDER, UNSPECIFIED 03/12/2018 TWILA LAWLER MD Ot F60.9 PERSONALITY DISORDER, UNSPECIFIED 03/12/2018 TWILA LAWLER MD Ot F90.9 ATTENTION-DEFICIT HYPERACTIVITY DISORDER 03/12/2018 TWILA LAWLER MD Ot G43.909 MIGRAINE, UNSP, NOT INTRACTABLE, WITHOUT 03/12/2018 TWILA LAWLER MD Ot K21.9 GASTRO-ESOPHAGEAL REFLUX DISEASE WITHOUT 03/12/2018 TWILA LAWLER MD Ot N39.0 URINARY TRACT INFECTION, SITE NOT SPECIF 03/12/2018 TWILA LAWLER MD Ot R05 COUGH 03/12/2018 TWILA LAWLER MD Ot Z68.31 BODY MASS INDEX (BMI) 31.0-31.9, ADULT 03/12/2018 TWILA LAWLER MD Ot Z79.4 FRONT DESK ASSISTANT (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 INSULIN 03/12/2018 TWILA LAWLER MD Ot Z88.0 ALLERGY STATUS TO PENICILLIN 03/12/2018 TWILA LAWLER MD Ot Z88.1 ALLERGY STATUS TO OTHER ANTIBIOTIC AGENT 03/12/2018 TWILA LAWLER MD, Ot Z90.49 ACQUIRED ABSENCE OF OTHER SPECIFIED PART 03/12/2018 TWILA LAWLER MD Ot Z91.5 PERSONAL HISTORY OF SELF-HARM 03/14/2018 TWILA LAWLER MD Ot E03.9 HYPOTHYROIDISM, UNSPECIFIED 03/14/2018 TWILA LAWLER MD Ot E11.9 TYPE 2 DIABETES MELLITUS WITHOUT COMPLIC 03/14/2018 TWILA LAWLER MD Ot E66.9 OBESITY, UNSPECIFIED 03/14/2018 TWILA LAWLER MD Ot F17.210 NICOTINE DEPENDENCE, CIGARETTES, UNCOMPL 03/14/2018 TWILA LAWLER MD, Ot F20.9 SCHIZOPHRENIA, UNSPECIFIED 03/14/2018 TWILA LAWLER MD Ot F32.9 MAJOR DEPRESSIVE DISORDER, SINGLE EPISOD 03/14/2018 TWILA LAWLER MD Ot F41.9 ANXIETY DISORDER, UNSPECIFIED 03/14/2018 TWILA LAWLER MD Ot F60.9 PERSONALITY DISORDER, UNSPECIFIED 03/14/2018 TWILA LAWLER MD Ot F90.9 ATTENTION-DEFICIT HYPERACTIVITY DISORDER 03/14/2018 TWILA LAWLER MD Ot G43.909 MIGRAINE, UNSP, NOT INTRACTABLE, WITHOUT 03/14/2018 TWILA LAWLER MD Ot K21.9 GASTRO-ESOPHAGEAL REFLUX DISEASE WITHOUT 03/14/2018 TWILA LAWLER MD Ot N39.0 URINARY TRACT INFECTION, SITE NOT SPECIF 03/14/2018 TWILA LAWLER MD Ot R05 COUGH 03/14/2018 TWILA LAWLER MD Ot Z68.31 BODY MASS INDEX (BMI) 31.0-31.9, ADULT 03/14/2018 TWILA LAWLER MD Ot Z79.4 HALFWAY (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 INSULIN 03/14/2018 TWILA LAWLER MD Ot Z88.0 ALLERGY STATUS TO PENICILLIN 03/14/2018 TWILA LAWLER MD, Ot Z88.1 ALLERGY STATUS TO OTHER ANTIBIOTIC AGENT 03/14/2018 TWILA LAWLER MD Ot Z90.49 ACQUIRED ABSENCE OF OTHER SPECIFIED PART 03/14/2018 TWILA LAWLER MD Ot Z91.5 PERSONAL HISTORY OF SELF-HARM 05/03/2018 OLGA LUCERO MD Ot 787.02 NAUSEA ALONE 05/03/2018 OLGA LUCERO MD R Ot 789.03 ABDOMINAL PAIN, RIGHT LOWER QUADRANT 05/03/2018 OLGA LUCERO MD R Ot 789.04 ABDOMINAL PAIN, LEFT LOWER QUADRANT 05/03/2018 OLGA LUCERO MD R Ot 571.8 CHRONIC LIVER DIS NEC 05/03/2018 OLGA LUCERO MD R Ot 592.0 CALCULUS OF KIDNEY 05/03/2018 OLGA LUCERO MD R Ot 719.7 DIFFICULTY IN WALKING 05/03/2018 AFUA FINLEY SUPERINTENDENT DRILLING AND PRODUCTION Ot V58.69 OT MED,LT,CURRENT USE 05/03/2018 AFUA FINLEY SUPERINTENDENT DRILLING AND PRODUCTION Ot V58.83 ENCOUNTER FOR THERAPEUTIC DRUG MONITORIN 05/03/2018 ADAIR LUCERO SUPERINTENDENT DRILLING AND PRODUCTION Ot 250.00 DIAB [place] WO COMPL, TYPE II OR UNSPEC TY 05/03/2018 ADAIR LUCERO SUPERINTENDENT DRILLING AND PRODUCTION Ot 244.9 HYPOTHYROIDISM NOS 05/03/2018 ADAIR LUCERO SUPERINTENDENT DRILLING AND PRODUCTION Ot 250.00 DIAB [place] WO COMPL, TYPE II OR UNSPEC TY 05/03/2018 OLGA LUCERO MD R Ot 571.8 CHRONIC LIVER DIS NEC 05/03/2018 OLGA LUCERO MD R Ot 789.01 ABDOMINAL PAIN, RIGHT UPPER QUADRANT 05/03/2018 OLGA LUCERO MD R Ot 789.01 ABDOMINAL PAIN, RIGHT UPPER QUADRANT 05/03/2018 OLGA LUCERO MD R Ot 793.3 NOSP (ABN) FINDINGS ON RADIOLOGICAL OT 05/03/2018 ESAU BERRY DO Ot 575.11 CHRONIC CHOLECYSTITIS 05/03/2018 ESAU BERRY DO Ot V72.63 PRE-PROCEDURAL LABORATORY EXAMINATION 05/03/2018 ESAU BERRY DO Ot V74.8 SCREEN-BACTERIAL DIS NEC 05/03/2018 ADAIR LUCERO SUPERINTENDENT DRILLING AND PRODUCTION Ot 250.01 DIAB [place] WO COMPL, TYPE I [JUVENILE TYP 05/03/2018 ADAIR LUCERO SUPERINTENDENT DRILLING AND PRODUCTION Ot 250.00 DIAB [place] WO COMPL, TYPE II OR UNSPEC TY 05/03/2018 ADAIR LUCERO SUPERINTENDENT DRILLING AND PRODUCTION Ot V58.67 LONG-TERM (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 INSULIN 05/03/2018 OLGA LUCERO MD R Ot 786.2 COUGH 05/03/2018 ADAIR LUCEROP Ot E11.9 TYPE 2 DIABETES MELLITUS WITHOUT COMPLIC 05/03/2018 SUYAPA GUERRA, TREVIN Ot R19.4 CHANGE IN BOWEL HABIT 05/03/2018 TREVIN DALE MD Ot Z01.818 ENCOUNTER FOR OTHER PREPROCEDURAL EXAMIN 05/03/2018 JAZMINE GUERRA, OLGA R Ot 787.91 DIARRHEA 05/03/2018 BRENDA LUCERO MDYD R Ot R19.7 DIARRHEA, UNSPECIFIED 05/03/2018 JAZMINE GUERRA OLGA R Ot E03.9 HYPOTHYROIDISM, UNSPECIFIED 05/03/2018 OLGA LUCERO MD R Ot E03.9 HYPOTHYROIDISM, UNSPECIFIED 05/03/2018 JAZMINE GUERRA OLGA R Ot M25.551 PAIN IN RIGHT HIP 05/03/2018 JAZMINE GUERRA OLGA R Ot M47.894 OTHER SPONDYLOSIS, THORACIC REGION 05/03/2018 JAZMINE GUERRA OLGA R Ot 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, 05/03/2018 JAZMINE GUERRA OLGA R Ot M54.16 RADICULOPATHY, LUMBAR REGION 05/03/2018 JAZMINE GUERRA OLGA R Ot N83.20 UNSPECIFIED OVARIAN CYSTS 05/03/2018 JAZMINE GUERRA OLGA R Ot N88.8 OTHER SPECIFIED NONINFLAMMATORY DISORDER 05/03/2018 ADAIR LUCERO SUPERINTENDENT DRILLING AND PRODUCTION Ot E11.9 TYPE 2 DIABETES MELLITUS WITHOUT COMPLIC 05/03/2018 ADAIR LUCERO SUPERINTENDENT DRILLING AND PRODUCTION Ot Z79.4 HALFWAY (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 INSULIN 05/03/2018 BRENDA LUCERO MDYD R Ot 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, UNSPEC 05/03/2018 TINY ALMENDAREZ RUG INSPECTOR HELPER Ot E03.9 HYPOTHYROIDISM, UNSPECIFIED 05/03/2018 TINY ALMENDAREZ RUG INSPECTOR HELPER Ot E10.9 TYPE 1 DIABETES MELLITUS WITHOUT COMPLIC 05/03/2018 TINY ALMENDAREZ RUG INSPECTOR HELPER Ot R42 DIZZINESS AND GIDDINESS 05/05/2018 DARRICK VERDUZCO MD Ot E03.9 HYPOTHYROIDISM, UNSPECIFIED 05/05/2018 DARRICK VERDUZCO MD Ot E11.9 TYPE 2 DIABETES MELLITUS WITHOUT COMPLIC 05/05/2018 DARRICK VERDUZCO MD Ot F17.210 NICOTINE DEPENDENCE, CIGARETTES, UNCOMPL 05/05/2018 DARRICK VERDUZCO MD Ot F31.9 BIPOLAR DISORDER, UNSPECIFIED 05/05/2018 DARRICK VERDUZCO MD, Ot F41.9 ANXIETY DISORDER, UNSPECIFIED 05/05/2018 DARRICK VERDUZCO MD Ot G43.909 MIGRAINE, UNSP, NOT INTRACTABLE, WITHOUT 05/05/2018 DARRICK VERDUZCO MD, Ot K21.9 GASTRO-ESOPHAGEAL REFLUX DISEASE WITHOUT 05/05/2018 DARRICK VERDUZCO MD Ot N39.0 URINARY TRACT INFECTION, SITE NOT SPECIF 05/05/2018 DARRICK VERDUZCO MD Ot R45.851 SUICIDAL IDEATIONS 05/05/2018 DARRICK VERDUZCO MD Ot S40.811A ABRASION OF RIGHT UPPER ARM, INITIAL ENC 05/05/2018 DARRICK VERDUZCO MD Ot X78.1XXA INTENTIONAL SELF-HARM BY KNIFE, INITIAL 05/05/2018 DARRICK VERDUZCO MD Ot Z79.4 FRONT 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 (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 05/05/2018 DARRICK VERDUZCO MD Ot Z88.0 ALLERGY STATUS TO PENICILLIN 05/05/2018 DARRICK VERDUZCO MD Ot Z88.1 ALLERGY STATUS TO OTHER ANTIBIOTIC AGENT 05/05/2018 DARRICK VERDUZCO MD Ot Z90.49 ACQUIRED ABSENCE OF OTHER SPECIFIED PART Procedures Code [place] [address] THERAPUTIC INJ SQ/IM 12/13/2012 48937 THERAPUTIC INJ SQ/IM 01/16/2013 21436 THERAPUTIC INJ SQ/IM 01/16/2013 10129 PSYCH PHARM MGMT 01/26/2013 29835 THERAPUTIC INJ SQ/IM 02/09/2013 15618 THERAPUTIC INJ SQ/IM 03/12/2013 94516 THERAPUTIC INJ SQ/IM 03/12/2013 27102 THERAPUTIC INJ SQ/IM 04/10/2013 J1631 Haldol Decanoate 100 mg/mL Solution 04/11/2013 38705 THERAPUTIC INJ SQ/IM 06/12/2013 73570 THERAPUTIC INJ SQ/IM 07/18/2013 37312 CMP 11/27/2013 49639 LIPID PANEL 11/27/2013 41332 IMIPRAMINE 11/27/2013 37795 CBC 11/27/2013 43216 THERAPUTIC INJ SQ/IM 01/10/2014 45.16 ESOPHAGOGASTRODUODENOSCOPY [ EGD] W/CLOSE 02/07/2014 99816 THERAPUTIC INJ SQ/IM 02/08/2014 07029 THERAPUTIC INJ SQ/IM 04/05/2014 25865 THERAPUTIC INJ SQ/IM 05/07/2014 97279 THERAPUTIC INJ SQ/IM 06/05/2014 08839 THERAPUTIC INJ SQ/IM 06/05/2014 09275 IMMUNOTHERAPY, ONE INJECTION 07/01/2014 81909 THERAPUTIC INJ SQ/IM 07/09/2014 84142 THERAPUTIC INJ SQ/IM 08/07/2014 57557 THERAPUTIC INJ SQ/IM 09/06/2014 39836 THERAPUTIC INJ SQ/IM 10/10/2014 55250 THERAPUTIC INJ SQ/IM 11/07/2014 62767 THERAPUTIC INJ SQ/IM 01/15/2015 Results Test Result [...] culture - 05/25/16 22:45 Bacterial urine culture [id number] NRG COLONY COUNT <10,000 NRG FTX;REPORTABLE SENSITIVITIES REPORTED AT 0742, 06-01-16 [facility] Bacterial susceptibility panel - 05/25/16 22:45 Gentamicin [...] susceptibility test by minimum inhibitory concentration - [facility] Bacterial susceptibility panel - 05/25/16 22:45 Gentamicin [...] susceptibility test by minimum inhibitory concentration 2 [facility] Comprehensive metabolic panel - 09/23/16 14:56 Serum [...] URINE CULTURE RESULTS MORE THAN 3 ISOLATES [facility] Serum or plasma potassium measurement (moles/volume) - [...] or plasma urea nitrogen/creatinine mass ratio 24 [facility] Serum or plasma creatinine measurement with calculation of estimated glomerular filtration rate > [facility] Serum or plasma glucose measurement (mass/volume) 212 [...] measurement by glucometer (mass/volume) 129 mg/dL 70-110 Complete urinalysis with reflex to culture - 03/12/18 08:59 Urine color determination YELLOW NRG Urine clarity determination CLEAR NRG Urine pH measurement by test strip 5 5-9 Specific gravity of urine by test strip 1.025 1.016- 1.022 Urine protein assay by test strip, semi-quantitative NEGATIVE NEGATIVE Urine glucose detection by automated test strip NEGATIVE NEGATIVE Erythrocytes detection in urine sediment by [...] detection in urine sediment by light microscopy MODERATE NRG Squamous epithelial cells detection in urine sediment by light microscopy 5-10 NRG Crystals detection in urine sediment by light microscopy NONE NRG Casts detection in urine sediment by light microscopy NONE NRG Mucus detection in urine sediment by light microscopy MODERATE NRG Complete urinalysis with reflex to culture YES NRG Bacterial urine culture - 03/12/18 08:59 Complete blood count (CBC) with automated white blood cell (WBC) differential - 03/12/18 09:10 Blood leukocytes automated count (number/volume) 8.6 10*3/uL 4.3-11.0 Blood erythrocytes automated count (number/volume) 4.59 10*6/uL 4.35-5.85 Venous blood hemoglobin measurement (mass/volume) 13.8 g/dL 11.5-16.0 Blood hematocrit (volume fraction) 39 % 35-52 Automated erythrocyte mean corpuscular volume 84 [foz_us] 80-99 Automated erythrocyte mean corpuscular hemoglobin (mass per erythrocyte) 30 pg 25-34 Automated erythrocyte mean corpuscular hemoglobin concentration measurement ( mass/volume) 36 g/dL 32-36 Automated erythrocyte distribution width ratio 13.9 % 10.0-14.5 Automated blood platelet count (count/volume) 243 10*3/uL 130-400 Automated blood platelet mean volume measurement 10.1 [foz_us] 7.4-10.4 Automated blood neutrophils/100 leukocytes 48 % 42-75 Automated blood lymphocytes/100 leukocytes 39 % 12-44 Blood monocytes/100 leukocytes 8 % 0-12 Automated blood eosinophils/100 leukocytes 5 % 0-10 Automated blood basophils/100 leukocytes 1 % 0-10 Blood neutrophils automated count (number/volume) 4.1 10*3 1.8-7.8 Blood lymphocytes automated count (number/volume) 3.3 10*3 1.0-4.0 Blood monocytes automated count (number/volume) 0.7 10*3 0.0-1.0 Automated eosinophil count 0.4 10*3/uL 0.0-0.3 Automated blood basophil count (count/volume) 0.0 10*3/uL 0.0-0.1 Complete blood count (CBC) with automated white blood cell (WBC) differential - 05/03/18 00:33 Blood leukocytes automated count (number/volume) 10.8 10*3/uL 4.3-11.0 Blood erythrocytes automated count (number/volume) 4.82 10*6/uL 4.35-5.85 Venous blood hemoglobin measurement (mass/volume) 14.5 g/dL 11.5-16.0 Blood hematocrit (volume fraction) 40 % 35-52 Automated erythrocyte mean corpuscular volume 82 [foz_us] 80-99 Automated erythrocyte mean corpuscular hemoglobin (mass per erythrocyte) 30 pg 25-34 Automated erythrocyte mean corpuscular hemoglobin concentration measurement ( mass/volume) 37 g/dL 32-36 Automated erythrocyte distribution width ratio 13.1 % 10.0-14.5 Automated blood platelet count (count/volume) 256 10*3/uL 130-400 Automated blood platelet mean volume measurement 10.7 [foz_us] 7.4-10.4 Automated blood neutrophils/100 leukocytes 65 % 42-75 Automated blood lymphocytes/100 leukocytes 24 % 12-44 Blood monocytes/100 leukocytes 8 % 0-12 Automated blood eosinophils/100 leukocytes 3 % 0-10 Automated blood basophils/100 leukocytes 0 % 0-10 Blood neutrophils automated count (number/volume) 7.0 10*3 1.8-7.8 Blood lymphocytes automated count (number/volume) 2.5 10*3 1.0-4.0 Blood monocytes automated count (number/volume) 0.9 10*3 0.0-1.0 Automated eosinophil count 0.3 10*3/uL 0.0-0.3 Automated blood basophil count (count/volume) 0.0 10*3/uL 0.0-0.1 Comprehensive metabolic panel - 05/03/18 00:33 Serum or plasma sodium measurement (moles/volume) 135 mmol/L 135-145 Serum or plasma potassium measurement (moles/volume) 3.7 mmol/L 3.6-5.0 Serum or plasma chloride measurement (moles/volume) 105 mmol/L 98-107 Carbon dioxide 19 mmol/L 21-32 Serum or plasma anion gap determination (moles/volume) 11 mmol/L 5-14 Serum or plasma urea nitrogen measurement (mass/volume) 18 mg/dL 7-18 Serum or plasma creatinine measurement (mass/volume) 0.94 mg/dL 0.60-1.30 Serum or plasma urea nitrogen/creatinine mass ratio 19 NRG Serum or plasma creatinine measurement with calculation of estimated glomerular filtration rate > NRG Serum or plasma glucose measurement (mass/volume) 423 mg/dL 70-105 Serum or plasma calcium measurement (mass/volume) 9.4 mg/dL 8.5-10.1 Serum or plasma total bilirubin measurement (mass/volume) 0.3 mg/dL 0.1-1.0 Serum or plasma alkaline phosphatase measurement (enzymatic activity/volume) 112 U/L 40-136 Serum or plasma aspartate aminotransferase measurement (enzymatic activity/ volume) 13 U/L 5-34 Serum or plasma alanine aminotransferase measurement (enzymatic activity/volume ) 15 U/L 0-55 Serum or plasma protein measurement (mass/volume) 6.6 g/dL 6.4-8.2 Serum or plasma albumin measurement (mass/volume) 4.1 g/dL 3.2-4.5 Serum or plasma salicylates measurement (mass/volume) - 05/03/18 00:33 Serum or plasma salicylates measurement (mass/volume) < mg/dL 5.0-20.0 Serum or plasma acetaminophen measurement (mass/volume) - 05/03/18 00:33 Serum or plasma acetaminophen measurement (mass/volume) < ug/mL 10-30 Serum or plasma ethanol measurement (mass/volume) - 05/03/18 00:33 Serum or plasma ethanol measurement (mass/volume) < mg/dL <10 Serum or plasma thyrotropin measurement by detection limit <=0.05 miu/l (units/ volume) - 05/03/18 00:33 Serum or plasma thyrotropin measurement by detection limit <=0.05 miu/l (units/ volume) 1.89 u[iU]/mL 0.35-4.94 Urine beta human chorionic gonadotropin (hCG) measurement - 05/03/18 00:35 Urine beta human chorionic gonadotropin (hCG) measurement NEGATIVE NEGATIVE Urine drug screening test - 05/03/18 00:35 Urine phencyclidine detection by screening method NEGATIVE [...] Complete urinalysis with reflex to culture - 05/03/18 00:35 Urine color determination YELLOW NRG Urine clarity determination CLEAR NRG Urine pH measurement by test strip 6 5-9 Specific gravity of urine by test strip 1.020 1.016- 1.022 Urine protein assay by test strip, semi-quantitative 1+ NEGATIVE Urine glucose detection by automated test [...] detection in urine sediment by light microscopy 2-5 NRG Crystals detection in urine sediment by light microscopy NONE NRG Casts detection in urine sediment by light microscopy NONE NRG Mucus detection in urine sediment by light microscopy NEGATIVE NRG Complete urinalysis with reflex to culture YES NRG Yeast detection in urine sediment by light microscopy MODERATE NRG Bacterial urine culture - 05/03/18 00:35 Bacterial urine culture RML NRG COLONY COUNT . NRG Capillary blood glucose measurement by glucometer (mass/volume) - 05/03/18 02: 35 Capillary blood glucose measurement by glucometer (mass/volume) 267 mg/dL 70-110 Capillary blood glucose measurement by glucometer (mass/volume) - 05/03/18 03: 43 Capillary blood glucose measurement by glucometer (mass/volume) 213 mg/dL 70-110 Encounters ACCT No. Visit Date/Time Discharge Status Pt. Type Provider Facility Loc./Unit Complaint [id number] 02/19/2015 10:39:00 02/19/2015 23:59:59 [facility] Outpatient BRYAN SHARP APRN [id number] 01/15/2015 15:46:00 01/15/2015 23:59:59 [facility] Outpatient BRYAN SHARP APRN [id number] 12/31/2014 09:36:00 12/31/2014 23:59:59 CLS Outpatient BRYAN SHARP APRN [id number] 11/21/2014 14:43:00 11/21/2014 23:59:59 CLS Outpatient LILA RUG INSPECTOR HELPER, BRYAN [id number] 11/07/2014 15:40:00 11/07/2014 23:59:59 CLS Outpatient LILA RUG INSPECTOR HELPER, BRYAN [id number] 10/09/2014 15:00:00 10/09/2014 23:59:59 CLS Outpatient ASAEL DOALVARO Alejandro [id number] 09/06/2014 15:25:00 09/06/2014 23:59:59 CLS Outpatient VYAS DOALVARO Alejandro [id number] 08/16/2014 15:48:00 08/16/2014 23:59:59 CLS Outpatient LILA RUG INSPECTOR HELPER, BRYAN [id number] 08/07/2014 14:18:00 08/07/2014 23:59:59 CLS Outpatient LILA RUG INSPECTOR HELPER, BRYAN [id number] 07/19/2014 09:53:00 07/19/2014 23:59:59 CLS Outpatient LILA RUG INSPECTOR HELPER, BRYAN [id number] 07/09/2014 15:39:00 07/09/2014 23:59:59 CLS Outpatient LILA RUG INSPECTOR HELPER, BRYAN [id number] 06/18/2014 16:04:00 06/18/2014 23:59:59 CLS Outpatient LILA RUG INSPECTOR HELPER, BRYAN [id number] 06/05/2014 15:45:00 06/05/2014 23:59:59 CLS Outpatient VYAS DOALVARO [id number] 05/16/2014 16:35:00 05/16/2014 23:59:59 CLS Outpatient LILA RUG INSPECTOR HELPER, BRYAN [id number] 05/07/2014 11:39:00 05/07/2014 23:59:59 CLS Outpatient LILA RUG INSPECTOR HELPER, BRYAN [id number] 04/18/2014 14:58:00 04/18/2014 23:59:59 CLS Outpatient LILA RUG INSPECTOR HELPER, BRYAN [id number] 04/05/2014 10:34:00 04/05/2014 23:59:59 CLS Outpatient VYAS DOALVARO Alejandro [id number] 2014 14:23:00 2014 23:59:59 CLS Outpatient LILA RUG INSPECTOR HELPER, BRYAN [id number] 2014 14:23:00 2014 23:59:59 CLS Outpatient LILA RUG INSPECTOR HELPER, BRYAN [id number] 03/11/2014 12:20:00 03/11/2014 23:59:59 CLS Outpatient FINLEY RUG INSPECTOR HELPERAFUA [id number] 02/08/2014 08:25:00 02/08/2014 23:59:59 CLS Outpatient FINLEY RUG INSPECTOR HELPERAFUA [id number] 01/10/2014 10:55:00 01/10/2014 23:59:59 CLS Outpatient FINLEY RUG INSPECTOR HELPERAFUA [id number] 12/10/2013 17:22:00 12/10/2013 23:59:59 CLS Outpatient FINLEY RUG INSPECTOR HELPER, AFUA BOSWELL [id number] 09/25/2013 13:29:00 09/25/2013 23:59:59 CLS Outpatient FINLEY RUG INSPECTOR HELPERAFUA [id number] 09/03/2013 16:40:00 09/03/2013 23:59:59 CLS Outpatient FINLEY RUG INSPECTOR HELPERAFUA [id number] 08/20/2013 13:43:00 08/20/2013 23:59:59 CLS Outpatient FINLEY RUG INSPECTOR HELPERAFUA [id number] 07/18/2013 08:54:00 07/18/2013 23:59:59 CLS Outpatient FINLEY RUG INSPECTOR HELPERAFUA [id number] 07/12/2013 16:28:00 07/12/2013 23:59:59 CLS Outpatient FINLEY RUG INSPECTOR HELPERAFUA [id number] 01/19/2013 15:27:00 01/19/2013 23:59:59 CLS Outpatient FINLEY RUG INSPECTOR HELPERAFUA [id number] 01/16/2013 13:38:00 01/16/2013 23:59:59 CLS Outpatient [id number] 12/29/2012 09:32:00 12/29/2012 23:59:59 CLS Outpatient FINLEY RUG INSPECTOR HELPERAFUA [id number] 12/13/2012 14:41:00 12/13/2012 23:59:59 CLS Outpatient [id number] 11/20/2012 10:07:00 11/20/2012 23:59:59 CLS Outpatient FINLEY RUG INSPECTOR HELPER[employer]UA [id number] 09/11/2012 09:21:00 09/11/2012 23:59:59 CLS Outpatient FINLEY RUG INSPECTOR HELPERAFUA [id number] 06/22/2013 15:42:00 Document Registration [id number] 06/15/2013 06:58:00 Document Registration [id number] 04/10/2013 10:26:00 Document Registration [id number] 03/12/2013 11:15:00 Document Registration [id number] 02/26/2013 13:42:00 Document Registration [id number] 02/09/2013 16:13:00 Document Registration [id number] 02/05/2013 07:59:00 Document Registration [id number] 07/28/2015 08:25:02 ACT Document Registration [id number] 06/21/2017 08:36:00 Document Registration [id number] 05/24/2018 10:00:00 05/24/2018 23:59:59 CLS Outpatient Samia Lucero [facility] [id number] 11/18/2017 09:20:00 Document Registration [id number] 06/20/2017 15:00:00 Document Registration [id number] 05/03/2018 00:12:00 05/03/2018 05:06:00 DIS Outpatient DARRICK VERDUZCO MD [facility] [address] ER PSYCH [id number] 03/12/2018 08:21:00 03/12/2018 09:52:00 DIS Emergency BUCKY GUERRA, TWILA Allen [facility] [address] ER COUGH,UNABLE TO PEE [id number] 01/29/2018 06:20:00 01/30/2018 16:20:00 DIS Inpatient JOHNY GUERRA, INDY Boland [facility] [address] ICU SUICIDAL IDEATION, HYPOKALEMIA,HYPOMAGNESEMIA [id number] 12/27/2017 01:47:00 12/27/2017 05:59:00 DIS Emergency GAURANG STANTON DO [facility] [address] ER SEVERE ABD PAIN,DIZZY [id number] 12/23/2017 10:31:00 12/23/2017 23:59:59 CLS Outpatient TINY ALMENDAREZ APRN [facility] [address] LAB E03.9 [id number] 08/08/2017 17:48:00 08/08/2017 23:59:59 CLS Outpatient OLGA LUCERO MD [facility] [address] RAD ELEVATED PROLACTIC LEVEL E22.9 [id number] 07/29/2017 01:06:00 07/29/2017 02:20:00 DIS Emergency IVORY DICKSON MD [facility] [address] ER LOWER BACK PAIN [id number] 07/09/2017 17:13:00 07/09/2017 19:49:00 DIS Emergency YESSI GUERRA, IVORY Schwartz [facility] [address] ER HIGH BLOOD SUGAR, HEADACHE [id number] 05/02/2017 23:40:00 05/03/2017 04:00:00 DIS Emergency JOHN LEE MD [facility] [address] ER EYE PAIN,FEELS LIKE NEEDLES IN EYES [id number] 01/25/2017 00:51:00 01/25/2017 02:52:00 DIS Emergency FRANCISCO ALAN DO [facility] [address] ER HIGH BLOOD SUGAR 503 [id number] 09/23/2016 14:39:00 09/23/2016 23:59:59 CLS Outpatient ADAIR LUCERO [facility] [address] LAB DIABETES,INSULIN DEPENDENT [id number] 06/04/2016 15:00:00 06/04/2016 23:59:59 CLS Outpatient OLGA LUCERO MD [facility] [address] RAD LUMBAR PAIN,R HIP PAIN [id number] 05/25/2016 22:15:00 05/25/2016 23:33:00 DIS Emergency ROMY CHAPMAN GAURANG Alejandro [facility] [address] ER LOWER BACK PAIN [id number] 01/29/2016 11:47:00 01/29/2016 23:59:59 CLS Outpatient OLGA LUCERO MD [facility] [address] LAB [id number] 11/17/2015 10:20:00 11/17/2015 23:59:59 CLS Outpatient OLGA LUCERO MD [facility] [address] LAB HYPOTHYROID [id number] 11/12/2015 08:59:00 11/12/2015 12:00:00 DIS Outpatient TREVIN DALE MD [facility] CHANGE IN BOWEL HABIT [id number] 11/10/2015 05:36:00 11/10/2015 23:59:59 CLS Outpatient TREVIN DALE MD [facility] [address] PREOP SCREENING [id number] 11/06/2015 00:09:00 11/06/2015 23:59:59 CLS Preadmit OLGA LUCERO MD [facility] [address] LAB DIARRHEA [id number] 08/11/2015 06:00:00 11/05/2015 00:01:00 DIS Outpatient OLGA LUCERO MD [facility] [address] LAB DIARRHEA [id number] 10/11/2015 09:54:00 10/11/2015 11:56:00 DIS Emergency DARRICK VERDUZCO MD [facility] [address] ER MIGRAINE [id number] 07/28/2015 08:22:00 07/28/2015 23:59:59 CLS Outpatient ADAIR LUCERO [facility] [address] LAB DM11 [id number] 07/08/2015 11:07:00 07/08/2015 23:59:59 CLS Outpatient OLGA LUCERO MD [facility] [address] RAD PERSISTANT COUGH [id number] 06/12/2015 20:47:00 06/12/2015 23:13:00 DIS Emergency GAURANG STANTON DO K [facility] [address] ER BARAJAS [id number] 12/04/2014 18:15:00 12/06/2014 11:50:00 DIS Inpatient OLGA LUCERO MD [facility] [address] 4TH SUICIDAL IDEATION; DEPRESSION;SCHIZOPHRENIA;UTI; [id number] 08/23/2014 08:56:00 08/23/2014 23:59:59 CLS Outpatient ADAIR LUCERO [facility] [address] LAB DIABETES-INSULIN DEPENDANT [id number] 07/14/2014 02:29:00 07/14/2014 04:00:00 DIS Emergency DARRICK VERDUZCO MD [facility] [address] ER MIGRAINE [id number] 06/19/2014 21:16:00 06/19/2014 22:49:00 DIS Emergency TANYA GONZALEZ APRN [facility] [address] ER HEADACHE [id number] 05/23/2014 12:03:00 05/23/2014 23:59:59 CLS Outpatient ADAIR LUCERO [facility] [address] LAB DIABETES [id number] 05/02/2014 06:12:00 05/02/2014 15:55:00 DIS [facility] [id number] 04/30/2014 08:30:00 04/30/2014 23:59:59 CLS Outpatient ESAU BERRY DO [facility] PREOP CHRONIC CHOLECYSTITIS [id number] 04/09/2014 09:46:00 04/09/2014 23:59:59 CLS Outpatient OLGA LUCERO MD [facility] [address] CARD RUQ PAIN [id number] 04/03/2014 11:17:00 04/03/2014 23:59:59 CLS Outpatient OLGA LUCERO MD [facility] [address] RAD RUQ PAIN [id number] 02/28/2014 11:50:00 02/28/2014 23:59:59 CLS Outpatient ADAIR LUCERO [facility] LAB DIABETES [id number] 02/06/2014 15:47:00 02/07/2014 18:50:00 DIS Inpatient OLGA LUCERO MD [facility] [address] 4TH HEMADEMESIS, TM [id number] 02/04/2014 23:07:00 02/05/2014 00:24:00 DIS Emergency MILLICENT BHATTI MD [facility] [address] ER MIGRAINE [id number] 01/11/2014 10:23:00 01/11/2014 23:59:59 CLS Outpatient ADAIR LUCERO [facility] [address] LAB DIABETES [id number] 11/27/2013 10:06:00 11/27/2013 23:59:59 CLS Outpatient AFUA FINLEY [facility] [address] LAB MEDICATION-HIGH RISK [id number] 11/17/2013 11:06:00 11/17/2013 15:25:00 DIS Emergency GAURANG STANTON DO [facility] [address] ER DEPRESSION SUICIDAL THOUGHTS [id number] 09/06/2013 21:08:00 09/07/2013 00:18:00 DIS Emergency DAX GUERRA, DARRICK Fiore [facility] [address] ER ELEVATED BLOOD SUGAR [id number] 09/06/2013 13:55:00 09/06/2013 23:59:59 CLS Outpatient OLGA LUCERO MD [facility] [address] RAD PAIN W/WALKING [id number] 08/07/2013 13:32:00 08/07/2013 23:59:59 CLS Outpatient OLGA LUCERO MD [facility] [address] RAD L Q PAIN [id number] 08/06/2013 15:36:00 08/06/2013 23:59:59 CLS Outpatient OLGA LUCERO MD [facility] [address] LAB L Q PAIN [id number] 05/18/2013 16:42:00 05/18/2013 22:49:00 DIS Emergency SERGIO GERARD [facility] [address] ER SUICIDIAL IDEATION [id number] 08/15/2018 19:59:00 ACT Emergency IVORY DICKSON MD [facility] [address] ER ALLERGIC REACTION TO MED, 2 WEEKS [id number] 01/29/2016 11:45:00 Document Registration [id number] 02/10/2013 06:25:00 Document Registration [id number] 02/08/2013 11:58:00 Document Registration [id number] 11/08/2012 13:41:00 Document Registration [id number] 08/02/2012 14:50:00 Document Registration [id number] 02/08/2012 22:00:00 Document Registration [id number] 12/27/2011 13:01:00 Document Registration [id number] 12/15/2011 12:51:00 Document Registration [id number] 09/07/2011 22:42:00 Document Registration [id number] 03/19/2011 20:21:00 Document Registration [id number] 02/11/2011 15:16:00 Document Registration [id number] 12/11/2010 13:19:00 Document Registration [id number] 12/10/2010 13:05:00 Document Registration [id number] 11/07/2010 21:58:00 Document Registration [id number] 11/01/2010 22:32:00 Document Registration
--- NOTE | 2018-08-15 21:37 | ED General ---
General Stated Complaint: ALLERGIC REACTION TO MED, 2 WEEKS Source of Information: Patient Exam Limitations: No Limitations History of Present Illness Date Seen by Provider: Aug 15, 2018 Time Seen by Provider: 21:34 Initial Comments To ER per private vehicle with reports of itching every evening after taking her night medications. Itching is mostly in her back and legs. She has taken several Benadryl this evening without improvement. No rash, no trouble breathing. None of her medications are new, she's been on all of them for a long time she states. She has no itching during the daytime, only after taking her night medications. Timing/Duration: Other (2 weeks) Severity: Moderate Allergies and Home Medications Allergies Coded Allergies: amoxicillin (Unverified Allergy, Severe, sob, rash, 11/01/10) Penicillins (Verified Adverse Reaction, Severe, RASH, 12/14/05) cefuroxime (Verified Adverse Reaction, Severe, RASH, 12/14/05) clarithromycin (Unverified Adverse Reaction, Mild, nausea and dizziness, ) Home Medications Albuterol Sulfate 18 Gm Hfa.aer.ad, 2 PUFF IH Q6H PRN for SHORTNESS OF BREATH, ( Reported) Aripiprazole 2 Mg Tablet, 2 MG PO DAILY, (Reported) Guanfacine HCl 1 Mg Tab.er.24h, 1 MG PO HS, (Reported) Insulin Aspart 300 Units/3 Ml Solution, 25 UNITS SQ AC, (Reported) Insulin Detemir 100 Unit/1 Ml Insuln.pen, 67 UNITS SQ HS, (Reported) Lorazepam 1 Mg Tablet, 1 MG PO DAILY PRN for ANXIETY, (Reported) Metformin HCl 1,000 Mg Tablet, 1,000 MG PO BID, (Reported) Quetiapine Fumarate 200 Mg Tablet, 200 MG PO HS, (Reported) Sulfamethoxazole/Trimethoprim 1 Each Tablet, 1 EACH PO BID Prescribed by: DARRICK VERDUZCO on 05/03/18 0444 Topiramate 100 Mg Tablet, 150 MG PO BID, (Reported) TAKES 1 & 1/2 OF A (100 MG) TABLET Patient Home Medication List Home Medication List Reviewed: Yes Review of Systems Review of Systems Constitutional: see HPI; No chills, No fever EENTM: see HPI Respiratory: no symptoms reported; No cough, No short of breath Cardiovascular: no symptoms reported Genitourinary: no symptoms reported Musculoskeletal: no symptoms reported Skin: no symptoms reported Psychiatric/Neurological: No Symptoms Reported Hematologic/Lymphatic: No Symptoms Reported Past Hlgjgbk-Qwgwce-Agxlpr Hx Patient Social History Alcohol Beverage of Choice: Beer Type Used: Cigarettes 2nd Hand Smoke Exposure: Yes Recent Foreign Travel: No Contact w/Someone Who Travel: No Recent Hopitalizations: No Immunizations Up To Date Tetanus Booster (TDap): Less than 5yrs Date of Pneumonia Vaccine: Oct 24, 2010 Date of Influenza Vaccine: Aug 30, 2015 Seasonal Allergies Seasonal Allergies: Yes Past Medical History Surgeries: Yes (EGD, RIGHT HIP SURGERY CHILD FOR UNKNOWN REASON) Appendectomy, Eye Surgery, Gallbladder, Orthopedic Respiratory: No Cardiac: No Neurological: Yes Headaches /Migraines Reproductive Disorders: No Female Reproductive Disorders: Denies Sexually Transmitted Disease: No HIV/AIDS: No Genitourinary: Yes UTI-Chronic Gastrointestinal: Yes Gastroesophageal Reflux Musculoskeletal: No Endocrine: Yes (INSULIN + ORAL MEDICATIONS; OBESITY) Diabetes, Insulin dep, Hypothyroidsim HEENT: No Loss of Vision: Bilateral Hearing Impairment: Denies Cancer: No Psychosocial: Yes (EXTENSIVE PSYCH ISSUES) Suicide Attempts, Bipolar Integumentary: No Blood Disorders: No Family Medical History Family history: Allergy 03 MOTHER 09 BROTHER Family history: Arthritis 03 MOTHER Family history: Asthma 09 BROTHER 09 SISTER Family history: Cardiovascular disease 03 FATHER ("TAKES MEDICATION FOR HIS HEART") Family history: Diabetes mellitus 03 FATHER Family history: Hypertension 03 MOTHER Hypercholesterolemia 03 MOTHER Psychosocial problem 09 SISTER (DEPRESSION) Psychotic disorder 09 SISTER (ANXIETY) No Family History of: Abdominal aortic aneurysm Cascade's disease Alcoholism Aphasia Cancer Cancer of colon Cataract Chest pain Congenital heart disease Congestive heart failure Cystic fibrosis Dementia Dysphagia Family history: Alzheimer's disease Family history: Breast disease Family history: Coronary thrombosis Family history: Gastrointestinal disease Family history: Glaucoma Family history: Osteoporosis Family history: Thyroid disorder Headache Hearing loss Heart disease Hereditary disease History of - anemia History of - disorder History of - respiratory disease History of drug abuse Human immunodeficiency virus (HIV) seropositivity Infertile Kidney disease Malignant neoplasm of lung Myocardial infarction Parkinson's disease Prostate cancer Seizure disorder Stroke Tuberculosis Visual impairment Physical Exam Vital Signs Vital Signs - First Documented 08/15/18 21:28 Temp 98.2 Pulse 86 Resp 16 B/P (MAP) 147/88 (107) Pulse Ox 99 O2 Delivery Room Air Capillary Refill : Height, Weight, BMI Height: 5'5.00" Weight: 191lbs. 4.0oz. 86.479227pt; 32.1 BMI Method:Stated General Appearance: No Apparent Distress, WD/WN Eyes: Bilateral Eye Normal Inspection, Bilateral Eye PERRL, Bilateral Eye EOMI HEENT: PERRL/EOMI, TMs Normal Neck: Full Range of Motion, Normal Inspection Respiratory: Normal Breath Sounds, No Accessory Muscle Use, No Respiratory Distress Gastrointestinal: Normal Bowel Sounds, Non Tender, Soft Extremity: Normal Capillary Refill, Normal Inspection Neurologic/Psychiatric: Alert, Oriented x3, No Motor/Sensory Deficits Skin: Normal Color, Warm/Dry Progress/Results/Core Measures Suspected Sepsis SIRS Temperature: Pulse: Respiratory Rate: Laboratory Tests 08/15/18 21:45: White Blood Count 10.7 Blood Pressure / Mean: Laboratory Tests 08/15/18 21:45: Creatinine 0.69, Platelet Count 247, Total Bilirubin 0.2 Results/Orders Lab Results Laboratory Tests Test 08/15/18 21:45 Range/Units White Blood Count 10.7 4.3-11.0 10^3/uL Red Blood Count 4.46 4.35-5.85 10^6/uL Hemoglobin 13.0 11.5-16.0 G/DL Hematocrit 38 35-52 % Mean Corpuscular Volume 85 80-99 FL Mean Corpuscular Hemoglobin 29 25-34 PG Mean Corpuscular Hemoglobin Concent 34 32-36 G/DL Red Cell Distribution Width 12.7 10.0-14.5 % Platelet Count 247 130-400 10^3/uL Mean Platelet Volume 10.3 7.4-10.4 FL Neutrophils (%) (Auto) 69 42-75 % Lymphocytes (%) (Auto) 20 12-44 % Monocytes (%) (Auto) 9 0-12 % Eosinophils (%) (Auto) 2 0-10 % Basophils (%) (Auto) 0 0-10 % Neutrophils # (Auto) 7.4 1.8-7.8 X 10^3 Lymphocytes # (Auto) 2.1 1.0-4.0 X 10^3 Monocytes # (Auto) 0.9 0.0-1.0 X 10^3 Eosinophils # (Auto) 0.2 0.0-0.3 10^3/uL Basophils # (Auto) 0.0 0.0-0.1 10^3/uL Sodium Level 140 135-145 MMOL/L Potassium Level 3.3 L 3.6-5.0 MMOL/L Chloride Level 111 H 98-107 MMOL/L Carbon Dioxide Level 17 L 21-32 MMOL/L Anion Gap 12 5-14 MMOL/L Blood Urea Nitrogen 13 7-18 MG/DL Creatinine 0.69 0.60-1.30 MG/DL Estimat Glomerular Filtration Rate > 60 BUN/Creatinine Ratio 19 Glucose Level 166 H 70-105 MG/DL Calcium Level 9.1 8.5-10.1 MG/DL Corrected Calcium 9.1 8.5-10.1 MG/DL Total Bilirubin 0.2 0.1-1.0 MG/DL Aspartate Amino Transf (AST/SGOT) 12 5-34 U/L Alanine Aminotransferase (ALT/SGPT) 18 0-55 U/L Alkaline Phosphatase 116 40-136 U/L Total Protein 6.5 6.4-8.2 GM/DL Albumin 4.0 3.2-4.5 GM/DL My Orders Orders - TANYA GONZALEZ APRN Cbc With Automated Diff (08/15/18 21:33) Comprehensive Metabolic Panel (08/15/18 21:33) Lorazepam Tablet (Ativan Tablet) (08/15/18 21:45) Lorazepam Tablet (Ativan Tablet) (08/15/18 22:30) Medications Given in ED Current Medications Medications Dose Ordered Sig/Kiarra Route Start Time Stop Time Status Last Admin Dose Admin Lorazepam 0.5 mg ONCE ONCE PO 08/15/18 21:45 08/15/18 21:46 DC 08/15/18 21:40 0.5 MG Vital Signs/I&O 08/15/18 21:28 Temp 98.2 Pulse 86 Resp 16 B/P (MAP) 147/88 (107) Pulse Ox 99 O2 Delivery Room Air Capillary Refill : Departure Communication (Admissions) SHe is on trintellix which has a listed side effect of pruritis reported by 3% of patients according to medscape profile. . Impression Primary Impression: Pruritus Disposition: 01 HOME, SELF-CARE Condition: Stable Departure-Patient Inst. Decision time for Depature: 21:37 Referrals: OLGA LUCERO MD (PCP/Family) Primary Care Physician Patient Instructions: Side Effects From Medicines Add. Discharge Instructions: 1. Return to ER for any concerns 2. Call Dr. Lucero tomorrow to make an appointment to be seen or Mental health. This may be a side effect (not an allergic reaction) to your trintellix. 3. TANYA GONZALEZ APRN Aug 15, 2018 21:37
[2018-08-15] MEDS ORDERED: LORazepam 0.5 MG (ATIVAN) TABLET PO ONE ×2 (21:45→22:30)
[2018-08-15 22:01] LABS: BASOPHILS % (AUTO) 0 % (0-10); EOSINOPHILS # (AUTO) 0.2 10^3/uL (0.0-0.3); EOSINOPHILS % (AUTO) 2 % (0-10); HEMATOCRIT 38 % (35-52); LYMPHOCYTES # (AUTO) 2.1 X 10^3 (1.0-4.0); LYMPHOCYTES % (AUTO) 20 % (12-44); MEAN CORPUSCULAR HEMOGLOBIN 29 PG (25-34); MEAN CORPUSCULAR HGB CONC 34 G/DL (32-36); MEAN CORPUSCULAR VOLUME 85 FL (80-99); MEAN PLATELET VOLUME 10.3 FL (7.4-10.4); MONOCYTES # (AUTO) 0.9 X 10^3 (0.0-1.0); MONOCYTES % (AUTO) 9 % (0-12); NEUTROPHILS # (AUTO) 7.4 X 10^3 (1.8-7.8); NEUTROPHILS % (AUTO) 69 % (42-75); PLATELET COUNT 247 10^3/uL (130-400); RED BLOOD COUNT 4.46 10^6/uL (4.35-5.85); RED CELL DISTRIBUTION WIDTH 12.7 % (10.0-14.5); WHITE BLOOD COUNT 10.7 10^3/uL (4.3-11.0)
[2018-08-15 22:12] LABS: ALANINE AMINOTRANSFERASE 18 U/L (0-55); ALKALINE PHOSPHATASE 116 U/L (40-136); BILIRUBIN,TOTAL 0.2 MG/DL (0.1-1.0); BUN/CREATININE RATIO 19; CALCIUM 9.1 MG/DL (8.5-10.1); CARBON DIOXIDE 17 MMOL/L (21-32); CHLORIDE 111 MMOL/L (98-107); CREATININE SERUM 0.69 MG/DL (0.60-1.30); GFR ESTIMATED > 60; GLUCOSE 166 MG/DL (70-105); POTASSIUM 3.3 MMOL/L (3.6-5.0); SODIUM 140 MMOL/L (135-145); TOTAL PROTEIN 6.5 GM/DL (6.4-8.2)
[2018-08-15 23:00] VITALS: BP 136/89
== END 2018-08-15 23:05 | disposition home or self-care (01) ==
LOC: EDUNIT# 19:58 → ER 19:59
DX: L29.9 Pruritus, unspecified (principal); G43.909 Migraine, unspecified, not intractable, without status migrainosus; K21.9 Gastro-esophageal reflux disease without esophagitis; E11.9 Type 2 diabetes mellitus without complications; E03.9 Hypothyroidism, unspecified; F31.9 Bipolar disorder, unspecified; Z87.440 Personal history of urinary (tract) infections; Z88.0 Allergy status to penicillin; Z88.1 Allergy status to other antibiotic agents; Z79.4 Long term (current) use of insulin; Z77.22 Contact with and (suspected) exposure to environmental tobacco smoke (acute) (chronic); Z90.49 Acquired absence of other specified parts of digestive tract
CPT/HCPCS: 36415; 80053; 85025; 99283

== ENCOUNTER → 2018-11-10 | Outpatient (CLI) | payer MEDICARE, MEDICAID ==
[~2018-11-10] MED LIST changes: +ONDA4TAB11 PO
== END ==
LOC: LAB 11:49
PROVIDERS: ATTEND Nurse Practitioner Family
DX: R25.2 Cramp and spasm (principal)
CPT/HCPCS: 36415; 84132

== ENCOUNTER 2018-11-13 01:01 | Emergency (ER) | payer MEDICARE, MEDICAID ==
[~2018-11-13] VITALS: Ht 167.6 cm; Wt 90.3 kg
[~2018-11-13 01:01] MED LIST changes: -ONDA4TAB11 PO
--- OUTSIDE RECORDS SUMMARY | 2018-11-13 01:06 | XMS REPORT | Clinical Summary ---
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 If you do not see the information that you expected, contact Release of Information in the Health Information Management department at [phone] for further assistance in locating additional records.[facility] Allergies Comments Active Allergy Reactions Severity Noted Date Amoxicillin PALPITATIONS Low 09/08/2016 Cephalexin VISION Medium 09/08/2016 CHANGES Clarithromycin DIARRHEA, Low 09/08/2016 STOMACH UPSET Duloxetine NAUSEA ONLY Low 09/08/2016 Penicillins RASH, Medium 09/08/2016 PALPITATIONS Medications End Date Status Medication Sig Dispensed Refills Start Date Active INSULIN DETEMIR (LEVEMIR Inject 60 0 SC) Units under the skin daily. Active INSULIN ASPART (NOVOLOG Inject 27 0 SC) Units under the skin three times daily. Active levothyroxine (SYNTHROID) Take 50 mcg 0 50 mcg tablet by mouth daily. Active LORazepam (ATIVAN) 1 mg Take 1 mg by 0 tablet mouth twice daily. Active TOPIRAMATE (TOPAMAX PO) Take 150 mg 0 by mouth twice daily. Active metFORMIN-ER(+) Take 1,000 mg 0 (FORTAMET) 1,000 mg by mouth extended release tablet twice daily. Active diphenoxylate/atropine Take 1 Tab by 0 (LOMOTIL) 2.5/0.025 mg mouth as tablet Needed for Diarrhea. Active cyproheptadine Take 4 mg by 0 (PERIACTIN) 4 mg tablet mouth three times daily as needed. Active paliperidone(+) (INVEGA) Take by 0 9 mg tablet mouth daily. Active carisoprodol(+) (SOMA) Take 350 mg 0 350 mg tablet by mouth every 8 hours as needed for Muscle Cramps. Active HYDROcodone/acetaminophen Take 1 Tab by 0 (+) (NORCO) 10/325 mg mouth every 8 tablet hours as needed for Pain Active Problems Not on file Family History Medical History Relation Name Comments Cancer Father Diabetes Father Heart problem Paternal Grandfather Stroke Paternal Grandfather Cancer Paternal Grandmother Relation Name Status Comments Brother Alive Father Alive Mother Alive Paternal Grandfather Paternal Grandmother Sister Alive Social History Date Tobacco Use Types Packs/Day Years Used Never Assessed Sex Assigned at Date Recorded Not on file Industry Job Start Date Occupation Not on file Not on file Not on file Travel End Travel History Travel Start No recent travel history available. Last Filed Vital Signs Not on file Plan of Treatment Health Maintenance Due Date Last Done Comments PHYSICAL (COMPREHENSIVE) 1988 EXAM HIV SCREENING 1996 DTAP/TDAP VACCINES (1 - 1999 Tdap) CERVICAL CANCER SCREENING 2011 INFLUENZA VACCINE 05/24/2018 Results Not on filefrom Last 3 Months Insurance Payer Benefit Subscriber ID Type Phone Address Plan / Group MEDICARE MEDICARE xxxxxxxxxx Medicare PART A AND B [facility] MEDICAID [facility] xxxxxxxxxxx Medicaid COMMUNITY PLAN ID Advance Directives Patient has advance care planning documents on file. For more information, please contact: [facility] [address] [place] [address]
--- OUTSIDE RECORDS SUMMARY | 2018-11-13 01:32 | XMS REPORT ---
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 84059081 Problem Schizoaffective disorder, depressive type F25.1 Active 28375220 Problem Borderline personality disorder F60.3 Active 26751610 Problem Attention deficit hyperactivity disorder (ADHD), inattentive type, 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 83313922 Problem Schizoaffective disorder, unspecified F25.9 Active 59047013 Problem High risk medication use Z79.899 Active 296366043 Problem Posttraumatic stress disorder F43.10 Active 36570787 Problem Obsessive-compulsive disorders 300.3 Active 347053992 Problem Generalized anxiety disorder 300.02 Active 94230001 Problem Attention deficit disorder of childhood without mention of hyperactivity 314.00 Active 05215446 Problem Bipolar disorder, unspecified 296.80 Active 01414496 Problem Posttraumatic stress disorder 309.81 Active 87457596 Problem Paranoid schizophrenia, unspecified condition 295.30 Active [id number] ALLERGIES No Information ENCOUNTERS Encounter Location Date Diagnosis [facility] [place] [address] [facility] [id number] [address] Oct, [facility] [place] [address] [address] Aug, [facility] [place] [address] [id number] [address] Aug, [facility] [place] [address] [id number] [address] Aug, Paranoid schizophrenia F20.0 ; Posttraumatic stress disorder F43.10 ; Attention deficit hyperactivity disorder (ADHD), inattentive type, 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 and Borderline personality disorder F60.3 [facility] [address] [address] Jul, Dry skin dermatitis L85.3 [facility] [place] [address] [address] Jul, [facility] [place] [id number] [place] [address] Jul, Paranoid schizophrenia F20.0 [facility] [place] [address] [place] [address] May, Paranoid schizophrenia F20.0 ; Posttraumatic stress disorder F43.10 ; Attention deficit hyperactivity disorder (ADHD), inattentive type, 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 and Borderline personality disorder F60.3 [facility] [place] [address] [address] May, [facility] [place] [address] [place] [address] May, Paranoid schizophrenia F20.0 [facility] [place] [address] [place] [address] May, Paranoid schizophrenia F20.0 ; Posttraumatic stress disorder F43.10 ; Attention deficit hyperactivity disorder (ADHD), inattentive type, 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 and Borderline personality disorder F60.3 [facility] [place] [address] [address] Apr, [facility] [place] [id number] [place] [address] Apr, Paranoid schizophrenia F20.0 ; Posttraumatic stress disorder F43.10 ; Attention deficit hyperactivity disorder (ADHD), inattentive type, 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 and Borderline personality disorder F60.3 [facility] [place] [address] [address] Apr, [facility] [place] [address] [facility] [id number] [address] Apr, Schizoaffective disorder, depressive type F25.1 and Borderline personality disorder F60.3 [facility] [place] [address] [facility] [id number] [address] Apr, Paranoid schizophrenia F20.0 ; Posttraumatic stress disorder F43.10 ; Attention deficit hyperactivity disorder (ADHD), inattentive type, 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 and Borderline personality disorder F60.3 [facility] [place] [address] [facility] [id number] [place] [address] Apr, [facility] [place] [address] [facility] [id number] [place] [address] Apr, Paranoid schizophrenia F20.0 ; Posttraumatic stress disorder F43.10 ; Attention deficit hyperactivity disorder (ADHD), inattentive type, 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 and Borderline personality disorder F60.3 [facility] [place] [address] [facility] [id number] [address] Apr, [facility] [place] [address] [facility] [id number] [address] Mar, Paranoid schizophrenia F20.0 [facility] [place] [address] [facility] [id number] [place] [address] Mar, [facility] [place] [address] [facility] [id number] [address] Mar, Paranoid schizophrenia F20.0 ; Posttraumatic stress disorder F43.10 ; Attention deficit hyperactivity disorder (ADHD), inattentive type, 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 and Borderline personality disorder F60.3 [facility] [place] [address] [facility] [id number] [address] February, Paranoid schizophrenia F20.0 [facility] [address] [facility] [id number] [place] [address] February, Paranoid schizophrenia F20.0 ; Posttraumatic stress disorder F43.10 ; Attention deficit hyperactivity disorder (ADHD), inattentive type, 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 and Borderline personality disorder F60.3 [facility] [place] [address] [place] [address]29 February, Paranoid schizophrenia F20.0 ; Posttraumatic stress disorder F43.10 ; Attention deficit hyperactivity disorder (ADHD), inattentive type, 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 and Borderline personality disorder F60.3 [facility] [place] [id number] [place] [address]- [address] February, [facility] [place] [id number] [place] [address]75- 5530 February, Paranoid schizophrenia F20.0 [facility] [place] [id number] [place] [address] 48[address]- 9613 February, Paranoid schizophrenia F20.0 [facility] [place] [id number] [place] [address]- 2606 February, Paranoid schizophrenia F20.0 ; Posttraumatic stress disorder F43.10 ; Attention deficit hyperactivity disorder (ADHD), inattentive type, 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 and Borderline personality disorder F60.3 [facility] [place] [address] [place] [address] 85167- 8604 Jan, Paranoid schizophrenia F20.0 ; Posttraumatic stress disorder F43.10 ; Attention deficit hyperactivity disorder (ADHD), inattentive type, 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 and Borderline personality disorder F60.3 [facility] [place] [address]100[place] [address] Jan, Paranoid schizophrenia F20.0 [facility] [place] [address]005[address]100[place] [address]- [address] Jan, Paranoid schizophrenia F20.0 [facility] [place] [address] [address]- [address] Jan, Paranoid schizophrenia F20.0 ; Posttraumatic stress disorder F43.10 ; Attention deficit hyperactivity disorder (ADHD), inattentive type, 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 and Borderline personality disorder F60.3 [facility] [place] [address] [id number] [address] Dec, [facility] [place] [address] [id number] [address]- 6[address] Nov, Paranoid schizophrenia F20.0 ; Posttraumatic stress disorder F43.10 ; Attention deficit hyperactivity disorder (ADHD), inattentive type, 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 and Borderline personality disorder F60.3 [facility] [place] [address] [id number] [address]- [address] Nov, [facility] [place] [id number] [place] [address]32- 9927 Oct, Paranoid schizophrenia F20.0 [facility] [place] [id number] [place] [address] 90951- 4720 Oct, Paranoid schizophrenia F20.0 ; Posttraumatic stress disorder F43.10 ; Attention deficit hyperactivity disorder (ADHD), inattentive type, 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 ; Borderline personality disorder F60.3 and 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 [facility] [place] [address]005[address] [address]- 8[address] Oct, [facility] [place] [address] [id number] [address] 36[address] Oct, [facility] [place] [address] [address]- 9[address] Sep, [facility] [place] [address] [id number] [address]- 1207 Sep, Paranoid schizophrenia F20.0 ; Posttraumatic stress disorder F43.10 ; Attention deficit hyperactivity disorder (ADHD), inattentive type, 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 and Borderline personality disorder F60.3 [facility] [place] [address] [id number] [address]- [address] Sep, Paranoid schizophrenia F20.0 [facility] [place] [id number] [place] [address] 8[address]56- 2971 Aug, Paranoid schizophrenia F20.0 ; Posttraumatic stress disorder F43.10 ; Attention deficit hyperactivity disorder (ADHD), inattentive type, 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 and Borderline personality disorder F60.3 [facility] [place] [address] [address]- 9948 Aug, Paranoid schizophrenia F20.0 ; Posttraumatic stress disorder F43.10 ; Attention deficit hyperactivity disorder (ADHD), inattentive type, 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 and Borderline personality disorder F60.3 [facility] [place] [address] [address]- 9281 Aug, [facility] [place] [id number] [place] [address] 65666- 7857 Jul, Paranoid schizophrenia F20.0 ; Posttraumatic stress disorder F43.10 ; Attention deficit hyperactivity disorder (ADHD), inattentive type, 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 and Borderline personality disorder F60.3 [facility] [place] [address] [address]- [address] Jul, Paranoid schizophrenia F20.0 [facility] [place] [address] [place] [address] 44647- 2157 Jul, Paranoid schizophrenia F20.0 ; Posttraumatic stress disorder F43.10 ; Attention deficit hyperactivity disorder (ADHD), inattentive type, 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 and Borderline personality disorder F60.3 [facility] [place] [address] [address]- [address]28 Jun, Paranoid schizophrenia F20.0 ; Posttraumatic stress disorder F43.10 ; Attention deficit hyperactivity disorder (ADHD), inattentive type, 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 and Borderline personality disorder F60.3 [facility] [place] [address] [address]- 0067 May, 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 [facility] [place] [address] [address]- [address] May, [place] [address] [address]- 2910 May, [facility] [place] [address] [address]- 6600 May, Attention deficit hyperactivity disorder (ADHD), inattentive type, 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 [facility] [place] [address] [address]- 7881 May, [facility] [place] [address] [address]- 9711 May, Attention deficit hyperactivity disorder (ADHD), inattentive type, 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 [facility] [place] [address] [address]- 9781 May, Paranoid schizophrenia F20.0 ; Posttraumatic stress disorder F43.10 ; Attention deficit hyperactivity disorder (ADHD), inattentive type, 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 and 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 [facility] [place] [address] [address]- 4[address] Apr, Paranoid schizophrenia F20.0 [facility] [place] [address] [address]- 5012 Apr, Paranoid schizophrenia F20.0 ; Posttraumatic stress disorder F43.10 and Attention deficit hyperactivity disorder (ADHD), inattentive type, 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 [facility] [place] [address] [address]- [address] February, [facility] [place] [address] [id number] [address]- 8148 February, Paranoid schizophrenia F20.0 ; Posttraumatic stress disorder F43.10 and Attention deficit hyperactivity disorder (ADHD), inattentive type, 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 [facility] [place] [address] [id number] [address]- 5670 February, Paranoid schizophrenia F20.0 ; Posttraumatic stress disorder F43.10 and Attention deficit hyperactivity disorder (ADHD), inattentive type, 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 [facility] [place] [address] [address]- 9962 Jan, Paranoid schizophrenia F20.0 ; Posttraumatic stress disorder F43.10 and Attention deficit hyperactivity disorder (ADHD), inattentive type, 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 [facility] [address] [id number] [id number] Dec, Dental examination Z01.20 [facility] [address] [id number] [id number] Nov, Dental examination Z01.20 [facility] [id number] [place] [id number] Nov, Dental examination Z01.20 [facility] [address] [place] [id number] Nov, Dental caries K02.9 [facility] [place] [id number] [place] [address]7949- [address] Nov, High risk medication use Z79.899 [facility] [place] [address] [address]- 2382 Nov, Paranoid schizophrenia F20.0 ; Posttraumatic stress disorder F43.10 ; Attention deficit hyperactivity disorder (ADHD), inattentive type, 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 and Borderline personality disorder in adult F60.3 [facility] [address] [id number] [id number] Oct, Dental caries K02.9 [facility] [place] [address] [id number] [address]144 Sep, Paranoid schizophrenia F20.0 ; Posttraumatic stress disorder F43.10 and Attention deficit hyperactivity disorder (ADHD), inattentive type, 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 [facility] [place] [address] [address]- 4065 Aug, Paranoid schizophrenia F20.0 ; Posttraumatic stress disorder F43.10 and Attention deficit hyperactivity disorder (ADHD), inattentive type, 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 [facility] [address] [facility] [id number] [address] Aug, Strep throat J02.0 and Cough R05 [facility] [place] [id number] [place] [address] 17718- 1099 Aug, [facility] [place] [id number] [place] [address] 92769- 1292 Jul, Paranoid schizophrenia F20.0 ; Posttraumatic stress disorder F43.10 and Attention deficit hyperactivity disorder (ADHD), inattentive type, 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 [facility] [place] [id number] [place] [address] 67499- 8979 Jul, [facility] [place] [id number] [place] [address] 08753- 9839 Jun, Paranoid schizophrenia F20.0 ; Posttraumatic stress disorder F43.10 and Attention deficit hyperactivity disorder (ADHD), inattentive type, 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 [facility] [id number] [place] [address] [id number] Jun, Dental examination Z01.20 [facility] [place] [id number] [place] [address] 90019- 7216 Jun, [facility] [place] [address] [place] [address] 65872- 0168 May, Paranoid schizophrenia F20.0 [facility] [place] [address] [place] [address] 98108- 1811 May, Paranoid schizophrenia F20.0 ; Posttraumatic stress disorder F43.10 and Attention deficit hyperactivity disorder (ADHD), inattentive type, 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 [facility] [place] [address] [place] [address] 44505- 6275 May, [facility] [place] [id number] [place] [address] 86776- 1773 May, Paranoid schizophrenia F20.0 [facility] [place] [id number] [place] [address] 18613- 1363 May, [facility] [place] [address] [facility] [id number] [address]- 6705 May, Paranoid schizophrenia F20.0 [facility] [place] [address] [facility] [id number] [address]- 4193 May, Schizoaffective disorder, unspecified F25.9 [facility] [place] [address] [id number] [address]- 5597 May, Schizoaffective disorder, unspecified F25.9 [facility] [place] [address] [facility] [id number] [address]- 6163 May, [facility] [place] [address] [id number] [address]- 6933 May, Paranoid schizophrenia F20.0 [facility] [place] [address] [id number] [address]- 2665 May, Paranoid schizophrenia F20.0 ; Posttraumatic stress disorder F43.10 and Attention deficit hyperactivity disorder (ADHD), inattentive type, 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 [facility] [place] [address] [id number] [address]- 4590 Mar, [facility] [place] [address] [id number] [address]- 2768 Mar, Paranoid schizophrenia F20.0 ; Posttraumatic stress disorder F43.10 and Attention deficit hyperactivity disorder (ADHD), inattentive type, 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 [facility] [place] [address] [id number] [address]- 5973 16 Mar, 2016 Paranoid schizophrenia F20.0 [facility] [place] [address] [id number] [address]- 7901 Mar, Paranoid schizophrenia F20.0 ; Attention deficit hyperactivity disorder (ADHD), inattentive type, 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 and Posttraumatic stress disorder F43.10 [facility] [place] [address] [id number] [address]- 4171 Mar, [facility] [place] [address] [address] Mar, Paranoid schizophrenia F20.0 ; Posttraumatic stress disorder F43.10 and Attention deficit hyperactivity disorder (ADHD), inattentive type, 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 [facility] [place] [address]44 February, [facility] [place] [id number] [place] [address] [phone] February, [facility] [place] [id number] [place] [phone] February, [facility] [place] [id number] [place] [address] [id number] February, [facility] [place] [id number] [place] [phone] Jan, Paranoid schizophrenia F20.0 [facility] [address] [id number] [place] [address] [id number] Jan, Dental examination Z01.20 [facility] [address] [id number] [place] [address] [id number] Jan, Dental caries K02.9 [facility] [id number] [place] [address] [id number] Jan, Dental examination Z01.20 [facility] [address] [id number] [place] [address] [id number] Dec, Encounter for dental examination Z01.20 [facility] [place], [facility] [address] [id number] [address] Dec, Paranoid schizophrenia F20.0 [facility] [id number] [place] [id number] Dec, Dental examination Z01.20 [facility] [place] [address] [id number] [address] Dec, [facility] [place] [address]005[address] [address] Dec, Paranoid schizophrenia F20.0 ; Posttraumatic stress disorder F43.10 and Attention deficit hyperactivity disorder (ADHD), inattentive type, 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 [facility] [place] [address]005[address] [address] Nov, Schizoaffective disorder, unspecified F25.9 [facility] [place] [address]005[address] [address] Oct, Paranoid schizophrenia F20.0 [facility] [place] [address]005[address] [address] Oct, [facility] [place] [address]005[address] [address] Sep, Paranoid schizophrenia F20.0 ; Posttraumatic stress disorder F43.10 and Attention deficit hyperactivity disorder (ADHD), inattentive type, 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 [facility] [place] [address]005[address] [address] Sep, [facility] [place] [address] [address] Sep, Paranoid schizophrenia F20.0 ; Posttraumatic stress disorder F43.10 and Attention deficit hyperactivity disorder (ADHD), inattentive type, 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 [facility] [place] [address]005[address] [address] Aug, Paranoid schizophrenia F20.0 [facility] [place] [address] [id number] [address] Aug, [facility] [place] [address]005[address] [address] Aug, Posttraumatic stress disorder F43.10 ; Paranoid schizophrenia F20.0 and Attention deficit hyperactivity disorder (ADHD), inattentive type, 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 [facility] [place] [address]005[address] [address] Jul, Bipolar disorder, unspecified F31.9 [facility] [place] [address]005[address] [address] Jul, [facility] [place] [address] [address] [address] Jun, [facility] [place] [address]005[address] [address] Jun, Schizoaffective disorder, chronic 295.72 ; Posttraumatic stress disorder 309.81 and Attention deficit disorder of childhood without mention of hyperactivity 314.00 [facility] [place] [address]005[address] [address] May, [facility] [place] [id number] [place] [address] May, [facility] [place] [address] [place] [address] May, Schizoaffective disorder, chronic 295.72 ; Posttraumatic stress disorder 309.81 ; Attention deficit disorder of childhood without mention of hyperactivity 314.00 and Bipolar disorder, unspecified 296.80 [facility] [place] [address]005[address] [address] Apr, Schizoaffective disorder, chronic 295.72 [facility] [place] [address]005[address] [address] Apr, [facility] [place] [address]00565[address] [address] Apr, Schizoaffective disorder, chronic 295.72 ; Posttraumatic stress disorder 309.81 and Attention deficit disorder of childhood without mention of hyperactivity 314.00 [facility] [place] [address]005[address] [address] Mar, Disorganized schizophrenia, 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 [facility] [place] [address]005[address] [address]- [address] Mar, [facility] [place] [id number] [place] [address] 2546 Mar, [facility] [place] [address]005[address] [address]- 7[address] Mar, [facility] [place] [address]005[address] [address]- [address] Mar, [facility] [place] [address]005[address] [address]- [address] February, Schizoaffective disorder, chronic 295.72 [facility] [place] [address] [id number] [address]- 4566 February, [facility] [place] [id number] [place] [address]36 February, Attention deficit disorder of childhood without mention of hyperactivity 314.00 ; Posttraumatic stress disorder 309.81 and Schizoaffective disorder, chronic 295.72 [facility] [place] [address]005[address] [address] Jan, [facility] [place] [address]005[address] [address]- 0[address] Jan, [facility] [place] [address]005[address] [address]- 5527 Jan, [facility] [place] [address]005[address] [address]- 2246 Dec, [facility] [place] [address]005[address] [address]- [address] Dec, [facility] [place] [address]00565[address] [address]- 38[address] Dec, [facility] [place] [address]005[address] [address]- 9686 Dec, [facility] [place] [address]005[address] [address]- 2546 Dec, [facility] [place] [address]005[address] [address] Dec, [facility] [place] [facility] [address] [id number] [place] [address]- 8518 Dec, [facility] [place] [facility] [address] [id number] [place] [address]- 0496 Dec, [facility] [place] [facility] [address] [id number] [place] [address]- 9676 Nov, [facility] [place] [facility] [address] [id number] [place] [address]- 7676 Nov, [facility] [place] [facility] [address] [id number] [place] [address]- 4815 Nov, [facility] [place] [facility] [address] [id number] [place] [address]- 3321 Nov, [facility] [place] [facility] [address] [facility] [id number] [place] [address]- 0866 Nov, [facility] [place] [facility] [address] [id number] [place] [address]- 2847 Nov, [facility] [place] [facility] [address] [id number] [place] [address]- 0236 Nov, [facility] [place] [facility] [address] [facility] [id number] [place] [address]- 2779 Nov, [facility] [place] [facility] [address] [id number] [place] [address]- 9139 Nov, [facility] [place] [facility] [address] [id number] [place] [address]- 5447 Nov, [facility] [place] [facility] [address] [id number] [place] [address]- 6754 Oct, [facility] [place] [facility] [address] [id number] [place] [address]- 6445 Oct, [facility] [place] [facility] [address] [facility] [id number] [place] [address]- 4306 Oct, [facility] [place] [facility] [address] [id number] [place] [address]- 8982 15 Oct, 2014 [facility] [address] [id number] [place] [address]- 6318 15 Oct, 2014 [facility] [place] [facility] [address] [id number] [place] [address]- 6732 13 Oct, 2014 [facility] [place] [facility] [address] [id number] [place] [address]- 9278 13 Oct, 2014 [facility] [place] [facility] [address] [id number] [place] [address]- 3012 17 Sep, 2014 [facility] [place] [facility] [address] [id number] [place] [address]- 1537 17 Sep, 2014 [facility] [place] [facility] [address] [id number] [place] [address]- 5743 15 Sep, 2014 [facility] [place] [facility] [address] [id number] [place] [address]- 1922 15 Sep, 2014 [facility] [address] [id number] [place] [address]- 1159 20 Aug, 2014 [facility] [place] [facility] [address] [id number] [place] [address]- 2579 20 Aug, 2014 [facility] [place] [facility] [address] [id number] [place] [address]- 6627 14 Aug, 2014 [facility] [place] [facility] [address] [id number] [place] [address]- 8899 14 Aug, 2014 [facility] [place] [facility] [address] [id number] [place] [address]- 5295 Aug, [facility] [place] [facility] [address] [id number] [place] [address]- 6347 Aug, [facility] [place] [facility] [address] [id number] [place] [address]- 9397 Jul, [facility] [place] [facility] [address] [id number] [place] [address]- 7752 Jul, [facility] [place] [facility] [address] [id number] [place] [address]- 5738 24 Jul, 2014 [facility] [place] [facility] [address] [id number] [place] [address]- 5869 24 Jul, 2014 [facility] [place] [facility] [address] [id number] [place] [address]- 6108 15 Jul, 2014 [facility] [place] [facility] [address] [id number] [place] [address]- 5843 15 Jul, 2014 [facility] [place] [facility] [address] [id number] [place] [address]- 9064 27 Jun, 2013 [facility] [place] [facility] [address] [id number] [place] [address]- 3450 27 Jun, 2013 [facility] [place] [facility] [address] [id number] [place] [address]- 0319 26 Jun, 2013 [facility] [place] [facility] [address] [id number] [place] [address]- 7109 26 Jun, 2013 [facility] [place] [facility] [address] [id number] [place] [address]- 3013 26 Jun, 2013 [facility] [place] [facility] [address] [id number] [place] [address]- 7240 26 Jun, 2013 [facility] [place] [facility] [address] [id number] [place] [address] 2547 16 Jun, 2013 [facility] [place] [facility] [address] [id number] [address]- 2541 16 Jun, 2013 [facility] [place] [facility] [address] [id number] [place] [address] 2546 16 Jun, 2013 [facility] [place] [facility] [address] [id number] [place] [address]- 2542 16 Jun, 2013 [facility] [place] [facility] [address] [id number] [place] [address]- 2545 04 Jun, 2013 [facility] [place] [facility] [address] [id number] [place] [address]- 6466 May, [facility] [place] [facility] [address] [id number] [place] [address]- 0792 May, [facility] [place] [facility] [address] [id number] [place] [address]- 0650 May, [facility] [place] [facility] [address] [id number] [place] [address]- 1591 May, [facility] [place] [facility] [address] [id number] [place] [address]- 4422 May, [facility] [place] [facility] [address] [id number] [place] [address]- 6239 May, [facility] [place] [facility] [address] [id number] [place] [address]- 1582 May, [facility] [place] [facility] [address] [id number] [place] [address]- 8779 May, [facility] [place] [facility] [address] [id number] [place] [address]- 2771 May, [facility] [place] [facility] [address] [id number] [place] [address]- 0458 May, [facility] [place] [facility] [address] [id number] [place] [address]- 7168 Apr, [facility] [place] [facility] [address] [id number] [place] [address]- 6241 Apr, [facility] [place] [facility] [address] [id number] [place] [address]- 9046 Apr, [facility] [place] [facility] [address] [id number] [place] [address]- 5478 Apr, [facility] [place] [facility] [address] [id number] [place] [address]- 5197 Apr, [facility] [place] [facility] [address] [id number] [place] [address]- 4083 Apr, [facility] [place] [facility] [address] [id number] [place] [address]- 9412 17 Apr, 2014 [facility] [place] [facility] [address] [id number] [place] [address]- 1241 15 Apr, 2014 [facility] [place] [facility] [address] [id number] [place] [address]- 4184 15 Apr, 2014 [facility] [place] [facility] [address] [id number] [place] [address]- 7631 Apr, [facility] [place] [facility] [address] [id number] [place] [address]- 1609 Mar, [facility] [place] [facility] [address] [id number] [place] [address]- 9974 Mar, [facility] [place] [facility] [address] [id number] [place] [address]- 3895 Mar, [facility] [place] [facility] [address] [id number] [place] [address]- 3288 24 Mar, 2014 [facility] [place] [facility] [address] [id number] [place] [address]- 6199 Mar, [facility] [place] [facility] [address] [id number] [place] [address]- 3773 18 Mar, 2014 [facility] [place] [facility] [address] [id number] [place] [address]- 8656 18 Mar, 2014 [facility] [place] [facility] [address] [id number] [place] [address]- 8189 16 Mar, 2014 [facility] [place] [facility] [address] [id number] [place] [address]- 9126 16 Mar, 2014 [facility] [place] [facility] [address] [id number] [place] [address]- 3854 13 Mar, 2014 [facility] [place] [facility] [address] [id number] [place] [address]- 4034 13 Mar, 2014 [facility] [place] [facility] [address] [id number] [place] [address]- 9390 Mar, [facility] [place] [facility] [address] [id number] [place] [address]- 0165 Mar, [facility] [place] [facility] [address] [id number] [place] [address]- 1667 Mar, [facility] [place] [facility] [address] [id number] [place] [address]- 1818 Mar, [facility] [place] [facility] [address] [id number] [place] [address]- 7719 Mar, [facility] [place] [facility] [address] [id number] [place] [address]- 9761 Mar, [facility] [place] [facility] [address] [id number] [place] [address]- 3745 Mar, [facility] [place] [facility] [address] [id number] [place] [address]- 8827 Mar, [facility] [place] [facility] [address] [id number] [place] [address]- 2213 Mar, [facility] [place] [facility] [address] [id number] [place] [address]- 9897 February, [facility] [place] [facility] [address] [id number] [place] [address]- 2360 February, [facility] [place] [facility] [address] [id number] [place] [address]- 3624 February, [facility] [place] [facility] [address] [id number] [address]- 6492 February, [facility] [place] [facility] [address] [id number] [place] [address]- 5289 February, [facility] [place] [facility] [address] [id number] [place] [address]- 6341 February, [facility] [place] [facility] [address] [id number] [place] [address]- 7978 February, [facility] [place] [facility] [address] [id number] [place] [address]- 8327 February, [facility] [address] [id number] [place] [address]- 3736 February, [facility] [place] [facility] [address] [id number] [place] [address]- 2962 February, [facility] [address] [id number] [place] [address]- 1000 February, [facility] [place] [facility] [address] [id number] [place] [address]- 9587 February, [facility] [address] [id number] [place] [address]- 4204 February, [facility] [address] [id number] [place] [address]- 5676 February, [facility] [address] [id number] [place] [address]- 8955 February, [facility] [address] [id number] [place] [address]- 8721 February, [facility] [place] [facility] [address] [id number] [place] [address]- 8661 February, [facility] [address] [id number] [place] [address]- 1721 February, [facility] [place] [facility] [address] [id number] [place] [address]- 3838 February, [facility] [place] [facility] [address] [id number] [place] [address]- 7490 February, [facility] [place] [facility] [address] [id number] [place] [address]- 5126 February, [facility] [place] [facility] [address] [id number] [place] [address]- 1871 Jan, [facility] [place] [facility] [address] [id number] [place] [address]- 3359 Jan, [facility] [place] [facility] [address] [id number] [place] [address]- 9452 18 Jan, 2014 [facility] [place] [facility] [address] [id number] [place] [address]- 6347 18 Jan, 2014 [facility] [place] [facility] [address] [id number] [place] [address]- 3854 18 Jan, 2014 [facility] [place] [facility] [address] [id number] [place] [address]- 6241 18 Jan, 2014 [facility] [place] [facility] [address] [id number] [place] [address]- 1948 Jan, [facility] [place] [facility] [address] [id number] [place] [address]- 0914 Jan, [facility] [place] [facility] [address] [id number] [place] [address]- 5474 21 Dec, 2013 [facility] [place] [facility] [address] [id number] [place] [address]- 1946 20 Dec, 2013 [facility] [place] [facility] [address] [id number] [place] [address]- 7327 20 Dec, 2013 [facility] [place] [facility] [address] [id number] [place] [address]- 9451 19 Dec, 2013 [facility] [place] [facility] [address] [id number] [place] [address]- 6264 19 Dec, 2013 [facility] [place] [facility] [address] [id number] [place] [address]- 3296 15 Dec, 2013 [facility] [place] [facility] [address] [id number] [place] [address]- 4468 15 Dec, 2013 [facility] [place] [facility] [address] [id number] [place] [address]- 59[address] 11 Dec, 2013 [facility] [place] [facility] [address] [id number] [place] [address] 10 Dec, 2013 [facility] [place] [facility] [address] [id number] [place] [address] Dec, [facility] [address] [id number] [place] [address] Nov, [facility] [place] [facility] [address] [id number] [place] [address] Nov, [facility] [place] [facility] [address] [id number] [place] [address] Nov, [facility] [place] [facility] [address] [id number] [place] [address] Nov, [facility] [place] [facility] [address] [id number] [place] [address] Nov, [facility] [place] [facility] [address] [id number] [place] [address] Oct, [facility] [place] [facility] [address] [id number] [place] [address] Oct, [facility] [place] [facility] [address] [id number] [place] [address] Oct, [facility] [place] [facility] [address] [id number] [place] [address] Sep, [facility] [place] [facility] [address] [facility] [id number] [place] [address] Sep, [facility] [place] [facility] [address] [id number] [place] [address] Sep, [facility] [place] [facility] [address] [id number] [place] [address] Sep, [facility] [place] [facility] [address] [id number] [place] [address] Aug, [facility] [place] [facility] [address] [id number] [place] [address] Aug, [facility] [place] [facility] [address] [facility] [id number] [place] [address] Jul, [facility] [place] [facility] [address] [id number] [place] [address] Jul, [facility] [place] [facility] [address] [id number] [place] [address] Jul, [facility] [place] [facility] [address] [id number] [place] [address] Jul, [facility] [place] [facility] [address] [id number] [place] [address] Jul, [facility] [place] [facility] [address] [id number] [place] [address] Jun, [facility] [place] [facility] [address] [id number] [place] [address] 25 Jun, 2013 [facility] [place] [facility] [address] [id number] [place] [address]- [address]28 19 Jun, 2013 [facility] [place] [facility] [address] [id number] [place] [address] 7817 18 Jun, 2013 [facility] [place] [facility] [address] [id number] [place] [address] 16 Jun, 2013 [facility] [place] [facility] [address] [id number] [place] [address] 12 Jun, 2013 [facility] [place] [facility] [address] [id number] [place] [address] Jun, [facility] [place] [facility] [address] [id number] [place] [address] 30 May, 2013 [facility] [place] [facility] [address] [id number] [place] [address] May, [facility] [place] [facility] [address] [id number] [place] [address] Apr, [facility] [place] [facility] [address] [id number] [place] [address] Apr, [facility] [place] [facility] [address] [id number] [place] [address] Apr, [facility] [address] [id number] [place] [address] Mar, [facility] [place] [facility] [address] [id number] [place] [address] Mar, [facility] [place] [facility] [address] [id number] [place] [address] February, [facility] [place] [facility] [address] [id number] [place] [address] February, [facility] [address] [id number] [place] [address] February, [facility] [place] [facility] [address] [id number] [place] [address] February, [facility] [place] [facility] [address] [id number] [place] [address] Jan, [facility] [place] [facility] [address] [id number] [place] [address] Jan, [facility] [place] [facility] [address] [id number] [place] [address] 16 Jan, 2013 [facility] [place] [facility] [address] [id number] [place] [address] Dec, [facility] [place] [facility] [address] [id number] [place] [address] 47[address] Dec, [facility] [place] [facility] [address] [id number] [place] [address] Dec, [facility] [place] [facility] [address] [id number] [place] [address] Dec, [facility] [place] [facility] [address] [id number] [place] [address] Nov, [facility] [place] [facility] [address] [id number] [place] [address]- [address] Nov, [facility] [place] [facility] [address] [id number] [place] [address] Oct, [facility] [address] [id number] [place] [address] 35[address] Oct, [facility] [place] [facility] [address] [id number] [place] [address]66 Oct, [facility] [address] [id number] [place] [address] 37[address] Oct, [facility] [address] [id number] [place] [address] Aug, [facility] [address] [id number] [place] [address] 76[address] Aug, [facility] [address] [id number] [place] [address] Jun, [facility] [address] [id number] [place] [address] May, [facility] [address] [id number] [place] [address] May, [facility] [address] [id number] [place] [address] Apr, [facility] [address] [id number] [place] [address] Apr, [facility] [address] [id number] [place] [address] Apr, [facility] [address] [id number] [place] [address] Mar, [facility] [place] [facility] [address] [id number] [place] [address] Mar, [facility] [place] [facility] [address] [id number] [place] [address] Mar, [facility] [address] [id number] [place] [address] Mar, [facility] [address] [id number] [place] [address] Mar, [facility] [place] [facility] [address] [id number] [place] [address] February, [facility] [place] [facility] [address] [id number] [place] [address] February, [facility] [place] [facility] [address] [id number] [place] [address] February, [facility] [place] [facility] [address] [id number] [place] [address] February, [facility] [place] [facility] [address] [id number] [place] [address] February, [facility] [place] [facility] [address] [id number] [place] [address] February, [facility] [place] [facility] [address] [id number] [place] [address] February, [facility] [place] [facility] [address] [id number] [place] [address] Jan, [facility] [place] [facility] [address] [id number] [place] [address] Jan, [facility] [place] [facility] [address] [id number] [place] [address] Jan, [facility] [place] [facility] [address] [id number] [place] [address] 13 Jan, 2012 [facility] [place] [facility] [address] [id number] [place] [address]- [address] 10 Jan, 2012 [facility] [place] [facility] [address] [id number] [place] [address] 04 Jan, 2012 [facility] [place] [facility] [address] [id number] [place] [address] Dec, [facility] [place] [facility] [address] [id number] [address] 24 Dec, 2011 [facility] [address] [id number] [place] [address] 20 Dec, 2011 [facility] [place] [facility] [address] [id number] [place] [address] 13 Dec, 2011 [facility] [address] [id number] [place] [address] Dec, [facility] [address] [id number] [place] [address] 28 Nov, 2011 [facility] [address] [id number] [place] [address] Nov, [facility] [address] [id number] [place] [address]10 25 Nov, 2011 [facility] [address] [id number] [place] [address] 14 Nov, 2011 [facility] [address] [id number] [place] [address] Nov, [facility] [address] [id number] [place] [address] Nov, [facility] [address] [id number] [place] [address] Oct, [facility] [address] [id number] [place] [address] Oct, [facility] [address] [id number] [place] [address]70 Oct, [facility] [place] [facility] [address] [id number] [place] [address] Oct, [facility] [place] [facility] [address] [id number] [place] [id number] Oct, [facility] [address] [id number] [place] [address] Sep, [facility] [place] [facility] [address] [id number] [place] [address] 21 Sep, 2011 [facility] [place] [facility] [address] [id number] [place] [address] 20 Sep, 2011 [facility] [place] [facility] [address] [id number] [place] [address]98 14 Sep, 2011 [facility] [place] [facility] [address] [id number] [place] [address] 14 Sep, 2011 [facility] [place] [facility] [address] [id number] [place] [address] 13 Sep, 2011 [facility] [place] [facility] [address] [id number] [place] [address]- [address] 12 Sep, 2011 [facility] [place] [facility] [address] [id number] [place] [address]- [address] 09 Sep, 2011 [facility] [place] [facility] [address] [id number] [place] [address]- 97[address] 05 Sep, 2011 [facility] [place] [facility] [address] [id number] [place] [address]- [address] 30 Aug, 2011 [facility] [place] [facility] [address] [id number] [place] [address]- 9679 30 Aug, 2011 [facility] [place] [facility] [address] [id number] [place] [address]- [address] Aug, [facility] [place] [facility] [address] [id number] [place] [address] Aug, [facility] [place] [facility] [address] [id number] [place] [address] Aug, [facility] [place] [facility] [address] [id number] [place] [address] 22 Aug, 2011 [facility] [place] [facility] [address] [id number] [place] [address] 16 Aug, 2011 [facility] [place] [facility] [address] [id number] [place] [address] Aug, [facility] [place] [facility] [address] [id number] [place] [address] Aug, [facility] [place] [facility] [address] [id number] [place] [address] 2499 Aug, [facility] [place] [facility] [address] [id number] [place] [address]71 Aug, [facility] [place] [facility] [address] [id number] [place] [address] 0696 Aug, [facility] [place] [facility] [address] [id number] [place] [address]- [address] Jul, [facility] [place] [facility] [address] [id number] [place] [address]105 Jul, [facility] [place] [facility] [address] [facility] [id number] [place] [address]- [address] Jul, [facility] [place] [facility] [address] [id number] [place] [address]- 0911 Jul, [facility] [place] [facility] [address] [facility] [id number] [place] [address]- [address]64 Jul, [facility] [place] [facility] [address] [facility] [id number] [place] [address]- 1360 Jul, [facility] [place] [facility] [address] [id number] [place] [address] Jul, [facility] [place] [facility] [address] [facility] [id number] [place] [address]- [address] Jul, [facility] [place] [facility] [address] [id number] [place] [address] Jul, [facility] [place] [facility] [address] [facility] [id number] [place] [address] 39[address] Jul, [facility] [place] [facility] [address] [facility] [id number] [place] [address]- 1478 Nov, [facility] [place] [facility] [address] [facility] [id number] [place] Aug, [facility] [place] [address] [facility] [id number] [place] [address] Aug, [facility] [place] [address] [id number] [address] Aug, [facility] [place] [address] [facility] [id number] [place] [address] Aug, [facility] [place] [address] [facility] [id number] [place] [address] Jul, IMMUNIZATIONS No Known Immunizations SOCIAL HISTORY [...] Suicide attempt by hanging 06/14/2016 Hospitalization History [facility] 01/30/2018-02/10/2008 Hospitalization History [facility]/SI 05/04/18-05/09/18
--- OUTSIDE RECORDS SUMMARY | 2018-11-13 01:33 | XMS REPORT ---
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 74615490 Problem Schizoaffective disorder, depressive type F25.1 Active 51510828 Problem Borderline personality disorder F60.3 Active 65532375 Problem Attention deficit hyperactivity disorder (ADHD), inattentive type, 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 23928916 Problem Schizoaffective disorder, unspecified F25.9 Active 07165595 Problem High risk medication use Z79.899 Active 492498954 Problem Posttraumatic stress disorder F43.10 Active 08113955 Problem Obsessive-compulsive disorders 300.3 Active 223326323 Problem Generalized anxiety disorder 300.02 Active 39024927 Problem Attention deficit disorder of childhood without mention of hyperactivity 314.00 Active 84218125 Problem Bipolar disorder, unspecified 296.80 Active 46758824 Problem Posttraumatic stress disorder 309.81 Active 03546198 Problem Paranoid schizophrenia, unspecified condition 295.30 Active 45354992 ALLERGIES Substance Reaction Event Type Date Status [place] agitation/homicidal Drug Allergy Aug, Active Latuda agitation Drug Allergy Aug, Active Penicillamine bronchospasm and rash Drug Allergy Aug, Active Cephalexin visual disturbances Drug Allergy Aug, Active Ceftin visual disturbance Drug Allergy Aug, Active Biaxin bronchospasm Drug Allergy Aug, Active Cymbalta 30 Mg Capsule, Delayed Release(e.c.) nausea Non Drug Allergy Aug Active Brintellix 10 Mg Tablet nausea and vomiting Non Drug Allergy Aug, Active ENCOUNTERS Encounter Location Date Diagnosis [facility] [address] [address] Oct, [facility] [id number] [place] [address]113 Aug, Paranoid schizophrenia F20.0 ; Posttraumatic stress disorder F43.10 ; Attention deficit hyperactivity disorder (ADHD), inattentive type, 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 and Borderline personality disorder F60.3 [facility] [id number] [place] [address] Jul, Dry skin dermatitis L85.3 [facility] [address], [place] [address] Jul, [facility] [id number] [place] [address] 19711- 6046 Jul, Paranoid schizophrenia F20.0 [facility] [id number] [place] [address] 02406- 3070 May, Paranoid schizophrenia F20.0 ; Posttraumatic stress disorder F43.10 ; Attention deficit hyperactivity disorder (ADHD), inattentive type, 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 and Borderline personality disorder F60.3 [facility] [address], [place] [address] May, [facility] [address], [place] [address] 1810 May, Paranoid schizophrenia F20.0 [facility] [id number] [place] [address] 29437- 8767 May, Paranoid schizophrenia F20.0 ; Posttraumatic stress disorder F43.10 ; Attention deficit hyperactivity disorder (ADHD), inattentive type, 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 and Borderline personality disorder F60.3 [facility] [address], [place] [address] Apr, [facility] [address], [place] [address] 94[address] Apr, Paranoid schizophrenia F20.0 ; Posttraumatic stress disorder F43.10 ; Attention deficit hyperactivity disorder (ADHD), inattentive type, 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 and Borderline personality disorder F60.3 [facility] [id number] [place] [address] 55454- 2790 Apr, [facility] [id number] [place] [address] 55481- 6167 Apr, Schizoaffective disorder, depressive type F25.1 and Borderline personality disorder F60.3 [facility] [address] [place] [address] 58417- 7696 Apr, Paranoid schizophrenia F20.0 ; Posttraumatic stress disorder F43.10 ; Attention deficit hyperactivity disorder (ADHD), inattentive type, 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 and Borderline personality disorder F60.3 [facility] [id number] [place] [address] 92699- 0193 Apr, [facility] [id number] [place] [address] 50185- 5980 Apr, Paranoid schizophrenia F20.0 ; Posttraumatic stress disorder F43.10 ; Attention deficit hyperactivity disorder (ADHD), inattentive type, 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 and Borderline personality disorder F60.3 [facility] [address], [place] [address] 39[address] Apr, [facility] [address], [place] [address] 6510 Mar, Paranoid schizophrenia F20.0 [facility] [address], [place] [address] 3[address] Mar, [facility] [id number] [place] [address] 54944- 0078 Mar, Paranoid schizophrenia F20.0 ; Posttraumatic stress disorder F43.10 ; Attention deficit hyperactivity disorder (ADHD), inattentive type, 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 and Borderline personality disorder F60.3 [facility] [address], [place] [address] 3659 February, Paranoid schizophrenia F20.0 [facility] [id number], [place] [address] 56[address] February, Paranoid schizophrenia F20.0 ; Posttraumatic stress disorder F43.10 ; Attention deficit hyperactivity disorder (ADHD), inattentive type, 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 and Borderline personality disorder F60.3 [facility] [id number], [place] [address] 5[address] February, Paranoid schizophrenia F20.0 ; Posttraumatic stress disorder F43.10 ; Attention deficit hyperactivity disorder (ADHD), inattentive type, 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 and Borderline personality disorder F60.3 [facility] [id number], [place] [address] February, [facility] [id number] [address] 3979 February, Paranoid schizophrenia F20.0 [facility] [address], [place] [address]- 8406 February, Paranoid schizophrenia F20.0 [facility] [id number] [address]- 2689 February, Paranoid schizophrenia F20.0 ; Posttraumatic stress disorder F43.10 ; Attention deficit hyperactivity disorder (ADHD), inattentive type, 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 and Borderline personality disorder F60.3 [facility] [id number], [place] [address]- 9042 Jan, Paranoid schizophrenia F20.0 ; Posttraumatic stress disorder F43.10 ; Attention deficit hyperactivity disorder (ADHD), inattentive type, 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 and Borderline personality disorder F60.3 [facility] [id number] [address]- 4[address] Jan, Paranoid schizophrenia F20.0 [facility] [id number] [address]- 6338 Jan, Paranoid schizophrenia F20.0 [facility] [id number] [address]- 7922 Jan, Paranoid schizophrenia F20.0 ; Posttraumatic stress disorder F43.10 ; Attention deficit hyperactivity disorder (ADHD), inattentive type, 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 and Borderline personality disorder F60.3 [facility] [address], [place] [address]- [address] Dec, [facility] [id number] [place] [address] 24399- 7141 Nov, Paranoid schizophrenia F20.0 ; Posttraumatic stress disorder F43.10 ; Attention deficit hyperactivity disorder (ADHD), inattentive type, 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 and Borderline personality disorder F60.3 [facility] [address], [place] [address]- 1079 Nov, [facility] [address], [place] [address]- 6[address] Oct, Paranoid schizophrenia F20.0 [facility] [address], [place] [address]- 0371 Oct, Paranoid schizophrenia F20.0 ; Posttraumatic stress disorder F43.10 ; Attention deficit hyperactivity disorder (ADHD), inattentive type, 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 ; Borderline personality disorder F60.3 and Other alf ( 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 Z79.899 [facility] [address], [place] [address]- 2[address] Oct, [facility] [address], [place] [address]- 7991 Oct, [facility] [address], [place] [address]- 8055 Sep, [facility] [address], [place] [address]- 6783 Sep, Paranoid schizophrenia F20.0 ; Posttraumatic stress disorder F43.10 ; Attention deficit hyperactivity disorder (ADHD), inattentive type, 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10 ; Attention deficit hyperactivity disorder (ADHD), inattentive type, 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 and Borderline personality disorder F60.3 [facility] [address], [place] [address]- 7325 Aug, [facility] [address], [place] [address]- 8763 Jul, Paranoid schizophrenia F20.0 ; Posttraumatic stress disorder F43.10 ; Attention deficit hyperactivity disorder (ADHD), inattentive type, 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10 ; Attention deficit hyperactivity disorder (ADHD), inattentive type, 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 and Borderline personality disorder F60.3 [facility] [address], [place] [address]- 3241 May, Other alf (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 Z79.899 [facility] [address] [facility] [id number] [address]- 6[address] May, [facility] [address] [facility] [id number] [address]- 3090 May, [facility] [address] [facility] [id number] [address]- 8140 May, Attention deficit hyperactivity disorder (ADHD), inattentive type, 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 [facility] [address] [facility] [id number] [address]- 7134 May, [facility] [address] [facility] [id number] [address]- 4346 May, Attention deficit hyperactivity disorder (ADHD), inattentive type, 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 [facility] [address] [id number] [address]- 3645 May, Paranoid schizophrenia F20.0 ; Posttraumatic stress disorder F43.10 ; Attention deficit hyperactivity disorder (ADHD), inattentive type, 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 [facility] [address] [address]- 8125 February, Paranoid schizophrenia F20.0 ; Posttraumatic stress disorder F43.10 and Attention deficit hyperactivity disorder (ADHD), inattentive type, 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 [facility] [address] [address] 7394 Jan, Paranoid schizophrenia F20.0 ; Posttraumatic stress disorder F43.10 and Attention deficit hyperactivity disorder (ADHD), inattentive type, 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 [facility] [address] [address] Dec, Dental examination Z01.20 [facility] [id number] [place] [address] [id number] Nov, Dental examination Z01.20 [facility] [id number] [place] [address] [id number] Nov, Dental examination Z01.20 [facility] [id number] [place] [address] [id number] Nov, Dental caries K02.9 [facility] [id number] [place] [address] 38088- 6640 Nov, High risk medication use Z79.899 [facility] [address], [place] [address]- 9669 Nov, Paranoid schizophrenia F20.0 ; Posttraumatic stress disorder F43.10 ; Attention deficit hyperactivity disorder (ADHD), inattentive type, 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 and Borderline personality disorder in adult F60.3 [facility] [address] [address] Oct, Dental caries K02.9 [facility] [id number] [place] [address] [id number]- 3321 Sep, Paranoid schizophrenia F20.0 ; Posttraumatic stress disorder F43.10 and Attention deficit hyperactivity disorder (ADHD), inattentive type, 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 [facility] [id number] [address]- 8099 Aug, Paranoid schizophrenia F20.0 ; Posttraumatic stress disorder F43.10 and Attention deficit hyperactivity disorder (ADHD), inattentive type, 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 [facility] [address], [place] [address] Aug, Strep throat J02.0 and Cough R05 [facility] [id number] [place] [address] 52519- 3214 Aug, [facility] [id number] [place] [address] 88757- 2299 Jul, Paranoid schizophrenia F20.0 ; Posttraumatic stress disorder F43.10 and Attention deficit hyperactivity disorder (ADHD), inattentive type, 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 [facility] [id number] [place] [address] 20904- 1865 Jul, [facility] [id number] [place] [address] 40522- 8027 Jun, Paranoid schizophrenia F20.0 ; Posttraumatic stress disorder F43.10 and Attention deficit hyperactivity disorder (ADHD), inattentive type, 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 [facility] [id number] [place] [address] [id number] Jun, Dental examination Z01.20 [facility] [address], [place] [address]- 6031 Jun, [facility] [id number] [place] [address] 23998- 7010 May, Paranoid schizophrenia F20.0 [facility] [id number] [place] [address] 92359- 5184 May, Paranoid schizophrenia F20.0 ; Posttraumatic stress disorder F43.10 and Attention deficit hyperactivity disorder (ADHD), inattentive type, 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 [facility] [address], [place] [address]- 9761 May, [facility] [address] [address]- 5984 May, Paranoid schizophrenia F20.0 [facility] [address] [facility] [id number] [place] [address]- 9906 May, [facility] [address] [facility] [id number] [place] [address]- 9456 May, Paranoid schizophrenia F20.0 [facility] [address] [facility] [id number] [place] [address]- 7562 May, Schizoaffective disorder, unspecified F25.9 [facility] [address] [facility] [id number] [place] [address]- 2336 May, Schizoaffective disorder, unspecified F25.9 [facility] [address] [facility] [id number] [place] [address]- 6429 May, [facility] [address] [facility] [id number] [address]- 0638 May, Paranoid schizophrenia F20.0 [facility] [address] [facility] [id number] [place] [address]- 8298 May, Paranoid schizophrenia F20.0 ; Posttraumatic stress disorder F43.10 and Attention deficit hyperactivity disorder (ADHD), inattentive type, 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 [facility] [address] [facility] [id number], [place] [address]- 1982 Mar, [facility] [address] [facility] [id number][place] [address]36 Mar, Paranoid schizophrenia F20.0 ; Posttraumatic stress disorder F43.10 and Attention deficit hyperactivity disorder (ADHD), inattentive type, 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 [facility] [address] [facility] [id number] [address]- 3261 16 Mar, 2016 Paranoid schizophrenia F20.0 [facility] [address] [facility] [id number] [address]- 0940 Mar, Paranoid schizophrenia F20.0 ; Attention deficit hyperactivity disorder (ADHD), inattentive type, 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 and Posttraumatic stress disorder F43.10 [facility] [address] [id number] [place] [address]- 5299 Mar, [facility] [address] [id number] [place] [address]- 5632 Mar, Paranoid schizophrenia F20.0 ; Posttraumatic stress disorder F43.10 and Attention deficit hyperactivity disorder (ADHD), inattentive type, 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 [facility] [address] [id number] [place] [address]- 3336 February, [facility] [address] [id number] [place] [address]- 8919 February, [facility] [address] [id number] [place] [address]- 4545 February, [facility] [address] [id number], [place] [address]- 7071 February, [facility] [address] [id number] [address]- 4243 Jan, Paranoid schizophrenia F20.0 [facility] [address] [id number] [id number] Jan, Dental examination Z01.20 [facility] [address] [id number][place] [id number] Jan, Dental caries K02.9 [facility] [id number] [place] [address] [id number] Jan, Dental examination Z01.20 [facility] [id number] [place] [address] [id number] Dec, Encounter for dental examination Z01.20 [facility] [address] [id number][place] [address]146 Dec, Paranoid schizophrenia F20.0 [facility] [address] [id number][place] [address] Dec, Dental examination Z01.20 [facility] [address], [place] [address]- 5113 Dec, [facility] [address], [place] [address]- 9166 Dec, Paranoid schizophrenia F20.0 ; Posttraumatic stress disorder F43.10 and Attention deficit hyperactivity disorder (ADHD), inattentive type, 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 [facility] [address] [address]- 6821 Nov, Schizoaffective disorder, unspecified F25.9 [facility] [id number] [place] [address] 82013- 9090 Oct, Paranoid schizophrenia F20.0 [facility] [address] [address]- 9691 Oct, [facility] [id number] [place] [address] 74790- 9337 Sep, Paranoid schizophrenia F20.0 ; Posttraumatic stress disorder F43.10 and Attention deficit hyperactivity disorder (ADHD), inattentive type, 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 [facility] [address] [address]- 8719 Sep, [facility] [address] [address]- 8154 Sep, Paranoid schizophrenia F20.0 ; Posttraumatic stress disorder F43.10 and Attention deficit hyperactivity disorder (ADHD), inattentive type, 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 [facility] [address] [id number] [address]- 0353 Aug, Paranoid schizophrenia F20.0 [facility] [address] [address]- 9402 Aug, [facility] [address] [id number] [address]- 3539 Aug, Posttraumatic stress disorder F43.10 ; Paranoid schizophrenia F20.0 and Attention deficit hyperactivity disorder (ADHD), inattentive type, 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 [facility] [id number] [place] [address] 31358- 2707 Jul, Bipolar disorder, unspecified F31.9 [facility] [address] [address]- 7820 Jul, [facility] [id number] [place] [address] 80968- 3864 Jun, [facility] [id number] [place] [address] 41308- 7806 Jun, Schizoaffective disorder, chronic 295.72 ; Posttraumatic stress disorder 309.81 and Attention deficit disorder of childhood without mention of hyperactivity 314.00 [facility] [address] [id number] [address]- 2253 May, [facility] [id number] [place] [address] 66178- 3105 May, [facility] [address] [id number] [address]- 7722 May, Schizoaffective disorder, chronic 295.72 ; Posttraumatic stress disorder 309.81 ; Attention deficit disorder of childhood without mention of hyperactivity 314.00 and Bipolar disorder, unspecified 296.80 [facility] [address] [address]- 4889 Apr, Schizoaffective disorder, chronic 295.72 [facility] [address] [address]- 4900 Apr, [facility] [id number] [place] [address] 98444- 0351 Apr, Schizoaffective disorder, chronic 295.72 ; Posttraumatic stress disorder 309.81 and Attention deficit disorder of childhood without mention of hyperactivity 314.00 [facility] [address] [address]- 5907 Mar, Disorganized schizophrenia, 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 [facility] [address] [id number] [address] Mar, [facility] [id number], [place] [address] Mar, [facility] [id number], [place] [address] 60[address] Mar, [facility] [id number], [place] [address] Mar, [facility] [id number] [address] February, Schizoaffective disorder, chronic 295.72 [facility] [id number] [address] February, [facility] [id number] [address] February, Attention deficit disorder of childhood without mention of hyperactivity 314.00 ; Posttraumatic stress disorder 309.81 and Schizoaffective disorder, chronic 295.72 [facility] [id number] [address] Jan, [facility] [id number] [address] Jan, [facility] [id number], [place] [address] 39[address] Jan, [facility] [id number] [address] 9860 Dec, [facility] [id number] [address] 7234 Dec, [facility] [id number] [address] Dec, [facility] [address] [id number] [address] 9285 Dec, [facility] [address] [id number] [address] 10 Dec, 2014 [facility] [place] [facility] [address] [id number] [place] [address]- 5[address] Dec, [facility] [place] [facility] [address] [id number] [place] [address]- 0694 Dec, [facility] [place] [facility] [address] [id number] [place] [address]- 8479 Dec, [facility] [place] [facility] [address] [id number] [place] [address]- 5856 Nov, 2014 [facility] [place] [facility] [address] [id number] [place] [address]- 1735 Nov, 2014 [facility] [place] [facility] [address] [facility] [id number] [place] [address]- 5803 Nov, 2014 [facility] [place] [facility] [address] [facility] [id number] [place] [address]- 9315 Nov, 2014 [facility] [place] [facility] [address] [facility] [id number] [place] [address]- 9414 Nov, [facility] [place] [facility] [address] [facility] [id number] [place] [address]- 4938 Nov, [facility] [place] [facility] [address] [facility] [id number] [place] [address]- 4454 Nov, [facility] [place] [facility] [address] [facility] [id number] [place] [address]- 7896 Nov, [facility] [place] [facility] [address] [facility] [id number] [place] [address]- 3923 Nov, [facility] [place] [facility] [address] [facility] [id number] [place] [address]- 3354 Nov, [facility] [place] [facility] [address] [facility] [id number] [place] [address]- 5045 Oct, [facility] [place] [facility] [address] [facility] [id number] [place] [address]- 7600 Oct, [facility] [place] [facility] [address] [id number] [place] [address]- 4771 Oct, [facility] [place] [facility] [address] [id number] [place] [address]- 8296 Oct, [facility] [place] [facility] [address] [id number] [place] [address]- 6274 15 Oct, 2014 [facility] [place] [facility] [address] [id number] [place] [address]- 8057 Oct, [facility] [place] [facility] [address] [id number] [place] [address]- 4617 Oct, [facility] [place] [facility] [address] [id number] [place] [address]- 3291 17 Sep, 2014 [facility] [place] [facility] [address] [id number] [place] [address]- 2434 17 Sep, 2014 [facility] [place] [facility] [address] [id number] [place] [address]- 3225 15 Sep, 2014 [facility] [place] [facility] [address] [id number] [place] [address]- 9517 15 Sep, 2014 [facility] [place] [facility] [address] [id number] [place] [address]- 3366 20 Aug, 2014 [facility] [place] [facility] [address] [id number] [place] [address]- 4354 20 Aug, 2014 [facility] [place] [facility] [address] [id number] [place] [address]- 9377 14 Aug, 2014 [facility] [place] [facility] [address] [id number] [place] [address]- 8217 14 Aug, 2014 [facility] [place] [facility] [address] [id number] [place] [address]- 0188 14 Aug, 2014 [facility] [place] [facility] [address] [id number] [place] [address]- 3962 14 Aug, 2014 [facility] [place] [facility] [address] [id number] [place] [address]- 7860 29 Jul, 2014 [facility] [place] [facility] [address] [id number] [place] [address]- 2454 29 Jul, 2014 [facility] [place] [facility] [address] [id number] [place] [address]- 7935 24 Jul, 2014 [facility] [place] [facility] [address] [id number] [place] [address]- 3692 24 Jul, 2014 [facility] [place] [facility] [address] [id number] [place] [address]- 6632 15 Jul, 2014 [facility] [place] [facility] [address] [id number] [place] [address]- 5318 15 Jul, 2014 [facility] [place] [facility] [address] [id number] [place] [address]- 5038 27 Sep, 2013 [facility] [place] [facility] [address] [id number] [place] [address]- 9131 27 Sep, 2013 [facility] [place] [facility] [address] [id number] [place] [address]- 2540 26 Sep, 2013 [facility] [place] [facility] [address] [id number] [place] [address]- 2547 26 Sep, 2013 [facility] [place] [facility] [address] [id number] [place] [address]- 2547 26 Sep, 2013 [facility] [place] [facility] [address] [id number] [place] [address] 2543 26 Sep, 2013 [facility] [place] [facility] [address] [id number] [place] [address]- 2546 16 Sep, 2013 [facility] [place] [facility] [address] [id number] [place] [address] 2546 16 Sep, 2013 [facility] [place] [facility] [address] [id number] [place] [address]- 2541 16 Sep, 2013 [facility] [place] [facility] [address] [id number] [place] [address] Jun, [facility] [place] [facility] [address] [id number] [place] [address]- 7082 Jun, [facility] [place] [facility] [address] [id number] [place] [address]- 4133 May, [facility] [place] [facility] [address] [id number] [place] [address]- 7153 May, [facility] [place] [facility] [address] [id number] [place] [address]- 3125 May, [facility] [place] [facility] [address] [id number] [place] [address]- 2319 May, [facility] [place] [facility] [address] [id number] [place] [address]- 9958 May, [facility] [place] [facility] [address] [id number] [place] [address]- 3713 May, [facility] [place] [facility] [address] [id number] [place] [address]- 3696 May, [facility] [place] [facility] [address] [id number] [place] [address]- 0196 May, [facility] [place] [facility] [address] [id number] [place] [address]- 6644 May, [facility] [place] [facility] [address] [id number] [place] [address]- 7535 May, [facility] [place] [facility] [address] [id number] [place] [address]- 7042 Apr, [facility] [place] [facility] [address] [id number] [place] [address]- 3165 Apr, [facility] [place] [facility] [address] [id number] [place] [address]- 5475 Apr, [facility] [place] [facility] [address] [id number] [place] [address]- 9816 Apr, [facility] [place] [facility] [address] [id number] [address]- 9630 Apr, [facility] [place] [facility] [address] [id number] [place] [address]- 9911 Apr, [facility] [place] [facility] [address] [id number] [place] [address]- 6504 Apr, [facility] [place] [facility] [address] [id number] [place] [address]- 4320 Apr, [facility] [place] [facility] [address] [id number] [place] [address]- 8733 Apr, [facility] [place] [facility] [address] [id number] [place] [address]- 9550 Apr, [facility] [place] [facility] [address] [id number] [place] [address]- 3035 Mar, [facility] [place] [facility] [address] [id number] [place] [address]- 0511 Mar, [facility] [place] [facility] [address] [id number] [place] [address]- 0966 Mar, [facility] [place] [facility] [address] [id number] [place] [address]- 2527 24 Mar, 2014 [facility] [place] [facility] [address] [id number] [place] [address]- 7107 Mar, [facility] [place] [facility] [address] [id number] [place] [address]- 6776 Mar, [facility] [place] [facility] [address] [id number] [place] [address]- 8453 18 Mar, 2014 [facility] [place] [facility] [address] [id number] [place] [address]- 5064 16 Mar, 2014 [facility] [place] [facility] [address] [id number] [place] [address]- 7372 16 Mar, 2014 [facility] [place] [facility] [address] [id number] [place] [address]- 1920 13 Mar, 2014 [facility] [place] [facility] [address] [id number] [place] [address]- 3081 Mar, [facility] [place] [facility] [address] [id number] [place] [address]- 0059 Mar, [facility] [place] [facility] [address] [id number] [place] [address]- 9619 Mar, [facility] [place] [facility] [address] [id number] [place] [address]- 6844 Mar, [facility] [place] [facility] [address] [id number] [place] [address]- 0186 Mar, [facility] [place] [facility] [address] [id number] [place] [address]- 9326 Mar, [facility] [place] [facility] [address] [id number] [place] [address]- 2804 Mar, [facility] [place] [facility] [address] [id number] [place] [address]- 6270 Mar, [facility] [place] [facility] [address] [id number] [place] [address]- 5980 Mar, [facility] [place] [facility] [address] [id number] [place] [address]- 4054 Mar, [facility] [place] [facility] [address] [id number] [place] [address]- 5878 February, [facility] [place] [facility] [address] [id number] [place] [address]- 8717 February, [facility] [place] [facility] [address] [id number] [place] [address]- 5406 February, [facility] [place] [facility] [address] [id number] [place] [address]- 8572 February, [facility] [place] [facility] [address] [id number] [place] [address]- 4719 February, [facility] [place] [facility] [address] [id number] [place] [address]- 3998 February, [facility] [address] [id number] [place] [address]- 4345 February, [facility] [place] [facility] [address] [id number] [place] [address]- 9714 February, [facility] [place] [facility] [address] [id number] [place] [address]- 6613 February, [facility] [place] [facility] [address] [id number] [place] [address]- 1624 February, [facility] [place] [facility] [address] [id number] [place] [address]- 6001 February, [facility] [place] [facility] [address] [id number] [place] [address]- 8825 February, [facility] [place] [facility] [address] [id number] [place] [address]- 8608 February, [facility] [place] [facility] [address] [id number] [place] [address]- 2083 February, [facility] [place] [facility] [address] [id number] [place] [address]- 6358 February, [facility] [place] [facility] [address] [id number] [place] [address]- 9756 February, [facility] [place] [facility] [address] [id number] [place] [address]- 2073 February, [facility] [place] [facility] [address] [id number] [place] [address]- 9465 February, [facility] [place] [facility] [address] [id number] [place] [address]- 4848 February, [facility] [place] [facility] [address] [id number] [place] [address]- 8795 February, [facility] [place] [facility] [address] [id number] [place] [address]- 6206 February, [facility] [place] [facility] [address] [id number] [place] [address]- 1190 30 Jan, 2014 [facility] [place] [facility] [address] [id number] [place] [address]- 1581 30 Jan, 2014 [facility] [place] [facility] [address] [id number] [place] [address]- 1849 18 Jan, 2014 [facility] [place] [facility] [address] [id number] [place] [address]- 9896 18 Jan, 2014 [facility] [place] [facility] [address] [id number] [place] [address]- 5110 18 Jan, 2014 [facility] [place] [facility] [address] [id number] [place] [address]- 0195 18 Jan, 2014 [facility] [place] [facility] [address] [id number] [place] [address]- 3122 10 Jan, 2014 [facility] [place] [facility] [address] [id number] [place] [address]- 0576 10 Jan, 2014 [facility] [place] [facility] [address] [id number] [place] [address]- 2288 21 Dec, 2013 [facility] [place] [facility] [address] [id number] [place] [address]- 1314 20 Dec, 2013 [facility] [place] [facility] [address] [id number] [place] [address]- 7294 20 Dec, 2013 [facility] [place] [facility] [address] [id number] [place] [address]- 1762 19 Dec, 2013 [facility] [place] [facility] [address] [id number] [place] [address]- 1914 19 Dec, 2013 [facility] [place] [facility] [address] [id number] [place] [address]- 0359 15 Dec, 2013 [facility] [place] [facility] [address] [id number] [place] [address]- 7164 15 Dec, 2013 [facility] [place] [facility] [address] [id number] [place] [address]- 4200 Dec, [facility] [place] [facility] [address] [id number] [place] [address]- 0211 Dec, [facility] [place] [facility] [address] [id number] [place] [address]- 3359 Dec, [facility] [place] [facility] [address] [id number] [place] [address]- 8098 Nov, [facility] [place] [facility] [address] [id number] [place] [address]- 8435 Nov, [facility] [place] [facility] [address] [id number] [place] [address]- 2377 Nov, [facility] [place] [facility] [address] [id number] [place] [address]- 9553 Nov, [facility] [place] [facility] [address] [id number] [place] [address]- 7081 Nov, [facility] [place] [facility] [address] [id number] [place] [address]- 4742 Oct, [facility] [place] [facility] [address] [id number] [place] [address]- 8398 Oct, [facility] [place] [facility] [address] [id number] [place] [address]- 5419 Oct, [facility] [place] [facility] [address] [id number] [place] [address]- 0305 Sep, [facility] [place] [facility] [address] [id number] [place] [address]- 1480 Sep, [facility] [place] [facility] [address] [id number] [place] [address]- 1158 Sep, [facility] [place] [facility] [address] [id number] [place] [address]- 2303 Sep, [facility] [place] [facility] [address] [id number] [place] [address]- 9374 Aug, [facility] [place] [facility] [address] [id number] [place] [address]- 2817 Aug, [facility] [address] [id number] [place] [address]- 0541 Jul, [facility] [place] [facility] [address] [id number] [place] [address]- 4709 Jul, [facility] [place] [facility] [address] [id number] [place] [address]- 1283 Jul, [facility] [place] [facility] [address] [id number] [place] [address]- 5029 Jul, [facility] [place] [facility] [address] [id number] [place] [address]- 0793 Jul, [facility] [place] [facility] [address] [id number] [place] [address]- 2925 Jun, [facility] [address] [id number] [place] [address]- 8550 25 Jun, 2013 [facility] [place] [facility] [address] [id number] [place] [address]- 1946 19 Jun, 2012 [facility] [place] [facility] [address] [id number] [place] [address]- 3713 18 Jun, 2013 [facility] [place] [facility] [address] [id number] [place] [address]- 5771 16 Jun, 2013 [facility] [place] [facility] [address] [id number] [place] [address]- 1942 12 Jun, 2013 [facility] [place] [facility] [address] [id number] [address]- 1825 11 Jun, 2013 [facility] [place] [facility] [address] [id number] [place] [address]- 4316 30 May, 2013 [facility] [place] [facility] [address] [id number] [place] [address]- 7181 May, [facility] [place] [facility] [address] [id number], [place] [address]- 4521 Apr, [facility] [place] [facility] [address] [id number] [place] [address]- 4204 Apr, [facility] [address] [id number] [place] [address]- 3954 Apr, [facility] [place] [facility] [address] [id number] [place] [address]- 2658 Mar, [facility] [place] [facility] [address] [id number] [place] [address]- 2573 Mar, [facility] [address] [id number] [place] [address]- 1655 February, [facility] [place] [facility] [address] [id number] [place] [address]- 0534 February, [facility] [address] [id number] [place] [address]- 2165 February, [facility] [address] [id number] [place] [address]- 7241 February, [facility] [address] [id number] [place] [address]- 7634 Jan, [facility] [address] [id number] [place] [address]- 9574 Jan, [facility] [address] [id number] [place] [address]- 3476 16 Jan, 2013 [facility] [address] [id number] [place] [address]- 7489 29 Dec, 2012 [facility] [place] [facility] [address] [id number] [place] [address]- 8668 Dec, [facility] [place] [facility] [address] [id number] [place] [address]- 0220 Dec, [facility] [place] [facility] [address] [id number] [place] [address]- 0929 08 Dec, 2012 [facility] [place] [facility] [address] [id number] [place] [address]- 8337 Nov, [facility] [place] [facility] [address] [id number] [place] [address]- 1519 Nov, [facility] [place] [facility] [address] [id number] [place] [address]- 0566 Oct, [facility] [place] [facility] [address] [id number] [place] [address]- 9524 Oct, [facility] [place] [facility] [address] [id number] [place] [address]- 6015 Oct, [facility] [place] [facility] [address] [id number] [place] [address]- 6665 Oct, [facility] [place] [facility] [address] [id number] [place] [address]- 8848 Aug, [facility] [place] [facility] [address] [id number] [place] [address]- 4219 Aug, [facility] [place] [facility] [address] [id number] [place] [address] Jun, [facility] [place] [facility] [address] [id number] [place] [address] May, [facility] [place] [facility] [address] [id number] [place] [address] May, [facility] [place] [facility] [address] [id number] [address] Apr, [facility] [place] [facility] [address] [id number] [address] Apr, [facility] [place] [facility] [address] [id number] [place] [address] Apr, [facility] [place] [facility] [address] [id number] [place] [address] Mar, [facility] [place] [facility] [address] [id number] [place] [address] Mar, [facility] [place] [facility] [address] [id number] [place] [address] 13 Mar, 2012 [facility] [address] [id number] [place] [address] Mar, [facility] [address] [id number] [place] [address] Mar, [facility] [address] [id number] [place] [address] February, [facility] [address] [id number] [place] [address] February, [facility] [address] [id number] [place] [address] February, [facility] [address] [id number] [place] [address] February, [facility] [address] [id number] [place] [address] February, [facility] [address] [id number] [place] [address] February, [facility] [address] [id number] [place] [address] February, [facility] [address] [id number] [place] [address] Jan, [facility] [address] [id number] [place] [address] 18 Jan, 2012 [facility] [address] [id number] [place] [address] 1657 17 Jan, 2012 [facility] [address] [id number] [place] [address] 13 Jan, 2012 [facility] [address] [id number] [place] [address] 8743 10 Jan, 2012 [facility] [address] [id number] [place] [address]- [address]65 04 Jan, 2012 [facility] [address] [id number] [place] [address] 30 Dec, 2011 [facility] [place] [facility] [address] [id number] [place] [address] 9[address] 24 Dec, 2011 [facility] [place] [facility] [address] [id number] [place] [address]326 20 Dec, 2011 [facility] [place] [facility] [address] [id number] [place] [address]- [address]46 13 Dec, 2011 [facility] [place] [facility] [address] [id number] [place] [address]- [address] 06 Dec, 2011 [facility] [place] [facility] [address] [id number] [place] [address]46 28 Nov, 2011 [facility] [place] [facility] [address] [id number] [place] [address] 2526 Nov, [facility] [place] [facility] [address] [id number] [place] [address]- 2446 Nov, [facility] [place] [facility] [address] [id number] [place] [address] 14 Nov, 2011 [facility] [place] [facility] [address] [facility] [id number] [place] [address] Nov, [facility] [place] [facility] [address] [id number] [place] [address] 30[address] Nov, [facility] [place] [facility] [address] [id number] [place] [address]66 Oct, [facility] [place] [facility] [address] [id number] [place] [address] Oct, [facility] [place] [facility] [address] [id number] [place] [address] 7086 Oct, [facility] [place] [facility] [address] [id number] [place] [address] Oct, [facility] [place] [facility] [address] [id number] [place] [address] 03 Oct, 2011 [facility] [address] [id number] [place] [address] 27 Sep, 2011 [facility] [place] [facility] [address] [id number] [place] [address]- 1806 21 Sep, 2011 [facility] [address] [id number] [place] [address]- 2012 20 Sep, 2011 [facility] [place] [facility] [address] [id number] [place] [address]- [address] 14 Sep, 2011 [facility] [address] [id number] [place] [address]- 4524 14 Sep, 2011 [facility] [place] [facility] [address] [id number] [place] [address]- 0837 13 Sep, 2011 [facility] [address] [id number] [place] [address]- 1370 12 Sep, 2011 [facility] [address] [id number] [place] [address]- 3992 09 Sep, 2011 [facility] [place] [facility] [address] [id number] [place] [address]- 9360 05 Sep, 2011 [facility] [address] [id number] [place] [address]- 6337 30 Aug, 2011 [facility] [place] [facility] [address] [id number] [place] [address]- 3578 30 Aug, 2011 [facility] [place] [facility] [address] [id number] [place] [address]- 0277 Aug, [facility] [place] [facility] [address] [id number] [place] [address]- 6229 Aug, [facility] [place] [facility] [address] [id number] [place] [address]- [address] Aug, [facility] [place] [facility] [address] [id number] [place] [address] 8478 Aug, [facility] [place] [facility] [address] [id number] [place] [address]- 4729 Aug, [facility] [place] [facility] [address] [id number] [place] [address]- 4848 16 Aug, 2011 [facility] [place] [facility] [address] [id number] [place] [address]- 1329 Aug, [facility] [place] [facility] [address] [id number] [place] [address]- 4029 Aug, [facility] [place] [facility] [address] [id number] [place] [address]- 3826 Aug, [facility] [place] [facility] [address] [id number] [place] [address]- [address] Aug, [facility] [place] [facility] [address] [id number] [place] [address]- 4257 Jul, [facility] [place] [facility] [address] [id number] [place] [address]- 7256 Jul, [facility] [place] [facility] [address] [id number] [place] [address]- [address] Jul, [facility] [place] [facility] [address] [id number] [place] [address]- 37[address] Jul, [facility] [place] [facility] [address] [id number] [place] [address]- 5669 Jul, [facility] [place] [facility] [address] [id number], [place] [address] Jul, [facility] [place] [facility] [address] [id number] [place] [address]- 0848 18 Jul, 2011 [facility] [place] [facility] [address] [id number] [place] [address] Jul, [facility] [place] [facility] [address] [id number] [place] [address] 10 Jul, 2011 [facility] [place] [facility] [address] [id number] [address] Jul, [facility] [address] [facility] [id number] [address] Nov, [facility] [id number] [address] Aug, [facility] [address] [id number] [address] Aug, [facility] [address] [id number] [address] Aug, [facility] [address] [facility] [id number] [address] Aug, [facility] [address] [id number] [address] Jul, IMMUNIZATIONS No Known Immunizations SOCIAL HISTORY Never Assessed REASON FOR VISIT f/u[facility]riel [facility] ma, contract PLAN OF CARE Activity Details Follow Up 2 Months Reason: Follow-up VITAL SIGNS Height 65.75 in 2018-08-28 Weight 189.8 lbs 2018-08-28 Heart Rate 89 bpm 2018-08-28 Respiratory Rate 20 2018-08-28 BMI 30.86 kg/m2 2018-08-28 Blood pressure systolic 126 mmHg 2018-08-28 Blood pressure diastolic 90 mmHg 2018-08-28 MEDICATIONS Medication Instructions Dosage Frequency Start Date End Date Duration Status Levemir 100 UNIT/ML Subcutaneous at bedtime 70 units Not-Taking Cyproheptadine HCl 7.5 MG Orally Twice a day 1 tablet 12h Active Toujeo SoloStar 72 units Active Intuniv 2 MG Orally Once a day 1 tablet 24h Active NovoLog Mix 70/30 100 UNIT/ML Flex Pen Subcutaneous 3 times a day 27 units 8h Active Ventolin HFA 90 MCG/ACT Inhalation every 6 hrs 2 puffs as needed 6h Active Benadryl Allergy 25 MG Orally every 8 hrs 1 tablet as needed 8h Active Trintellix 20 mg orally Once a day 1 tablet 24h Active Invega 6 MG Orally Once a day 1 tablet in the morning 24h Active Levothyroxine Sodium 75 MCG Orally Once a day 1 tablet on an empty stomach in the morning 24h Active Trulicity 0.75 MG/0.5ML Active Topamax 100 mg Orally Twice a day 1.5 tablet 12h Active Hydrocodone-Acetaminophen 10-325 mg 1 Tablet by Oral route every 8 hours PRN pain Jul, Active RESULTS No Results PROCEDURES No Known [...]
--- OUTSIDE RECORDS SUMMARY | 2018-11-13 01:34 | XMS REPORT ---
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 93151165 Problem Schizoaffective disorder, depressive type F25.1 Active 41958444 Problem Borderline personality disorder F60.3 Active 91796474 Problem Attention deficit hyperactivity disorder (ADHD), inattentive type, 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 96300304 Problem Schizoaffective disorder, unspecified F25.9 Active 51263759 Problem High risk medication use Z79.899 Active 182427548 Problem Posttraumatic stress disorder F43.10 Active 11182989 Problem Obsessive-compulsive disorders 300.3 Active 734797667 Problem Generalized anxiety disorder 300.02 Active 99046618 Problem Attention deficit disorder of childhood without mention of hyperactivity 314.00 Active 86327803 Problem Bipolar disorder, unspecified 296.80 Active 22104404 Problem Posttraumatic stress disorder 309.81 Active 37079150 Problem Paranoid schizophrenia, unspecified condition 295.30 Active 36104495 ALLERGIES Substance Reaction Event Type Date Status Manasquan agitation/homicidal Drug Allergy Jul, Active Latuda agitation Drug Allergy Jul, Active Penicillamine bronchospasm and rash Drug Allergy Jul, Active Cephalexin visual disturbances Drug Allergy Jul, Active Ceftin visual disturbance Drug Allergy Jul, Active Biaxin bronchospasm Drug Allergy Jul, Active Cymbalta 30 Mg Capsule, Delayed Release(e.c.) nausea Non Drug Allergy Jul Active Brintellix 10 Mg Tablet nausea and vomiting Non Drug Allergy Jul, Active ENCOUNTERS Encounter Location Date Diagnosis [facility] [address], [place] [address] Aug, [facility] [address], [place] [address] Jul, Dry skin dermatitis L85.3 [facility] [address], [place] [address] Jul, [facility] [id number] [place] [address] 7026 Jul, Paranoid schizophrenia F20.0 [facility] [address], [place] [address] May, Paranoid schizophrenia F20.0 ; Posttraumatic stress disorder F43.10 ; Attention deficit hyperactivity disorder (ADHD), inattentive type, 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 and Borderline personality disorder F60.3 [facility] [address], [place] [address] May, [facility] [address], [place] [address] May, Paranoid schizophrenia F20.0 [facility] [address], [place] [address] May, Paranoid schizophrenia F20.0 ; Posttraumatic stress disorder F43.10 ; Attention deficit hyperactivity disorder (ADHD), inattentive type, 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 and Borderline personality disorder F60.3 [facility] [address], [place] [address] Apr, [facility] [id number], [place] [address] Apr, Paranoid schizophrenia F20.0 ; Posttraumatic stress disorder F43.10 ; Attention deficit hyperactivity disorder (ADHD), inattentive type, 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 and Borderline personality disorder F60.3 [facility] [id number] [address] Apr, [facility] [address], [place] [address] Apr, Schizoaffective disorder, depressive type F25.1 and Borderline personality disorder F60.3 [facility] [id number] [place] [address] Apr, Paranoid schizophrenia F20.0 ; Posttraumatic stress disorder F43.10 ; Attention deficit hyperactivity disorder (ADHD), inattentive type, 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 and Borderline personality disorder F60.3 [facility] [id number] [address] Apr, [facility] [id number], [place] [address] Apr, Paranoid schizophrenia F20.0 ; Posttraumatic stress disorder F43.10 ; Attention deficit hyperactivity disorder (ADHD), inattentive type, 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 and Borderline personality disorder F60.3 [facility] [address], [place] [address] Apr, [facility] [id number] [address] Mar, Paranoid schizophrenia F20.0 [facility] [id number], [place] [address] 280[address] Mar, [facility] [address], [place] [address] Mar, Paranoid schizophrenia F20.0 ; Posttraumatic stress disorder F43.10 ; Attention deficit hyperactivity disorder (ADHD), inattentive type, 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 and Borderline personality disorder F60.3 [facility] [id number] [address] February, Paranoid schizophrenia F20.0 [facility] [id number], [place] [address] February, Paranoid schizophrenia F20.0 ; Posttraumatic stress disorder F43.10 ; Attention deficit hyperactivity disorder (ADHD), inattentive type, 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 and Borderline personality disorder F60.3 [facility] [address], [place] [address] February, Paranoid schizophrenia F20.0 ; Posttraumatic stress disorder F43.10 ; Attention deficit hyperactivity disorder (ADHD), inattentive type, 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 and Borderline personality disorder F60.3 [facility] [address], [place] [address] February, [facility] [address] [place] [address]- [address] February, Paranoid schizophrenia F20.0 [facility] [id number] [place] [address]- 4[address] February, Paranoid schizophrenia F20.0 [facility] [address], [place] [address] February, Paranoid schizophrenia F20.0 ; Posttraumatic stress disorder F43.10 ; Attention deficit hyperactivity disorder (ADHD), inattentive type, 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 and Borderline personality disorder F60.3 [facility] [address] [place] [address] 40859- 4955 Jan, Paranoid schizophrenia F20.0 ; Posttraumatic stress disorder F43.10 ; Attention deficit hyperactivity disorder (ADHD), inattentive type, 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 and Borderline personality disorder F60.3 [facility] [address], [place] [address] Jan, Paranoid schizophrenia F20.0 [facility] [address], [place] [address] Jan, Paranoid schizophrenia F20.0 [facility] [address], [place] [address] 59[address] Jan, Paranoid schizophrenia F20.0 ; Posttraumatic stress disorder F43.10 ; Attention deficit hyperactivity disorder (ADHD), inattentive type, 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 and Borderline personality disorder F60.3 [facility] [address], [place] [address] Dec, [facility] [address] [place] [address]- 5264 Nov, Paranoid schizophrenia F20.0 ; Posttraumatic stress disorder F43.10 ; Attention deficit hyperactivity disorder (ADHD), inattentive type, 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 and Borderline personality disorder F60.3 [facility] [id number] [address] Nov, [facility] [address], [place] [address] Oct, Paranoid schizophrenia F20.0 [facility] [address], [place] [address] 79[address] Oct, Paranoid schizophrenia F20.0 ; Posttraumatic stress disorder F43.10 ; Attention deficit hyperactivity disorder (ADHD), inattentive type, 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 ; Borderline personality disorder F60.3 and 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 [facility] [address], [place] [address] Oct, [facility] [address], [place] [address] 135[address] Oct, [facility] [address], [place] [address] Sep, [facility] [id number] [address] Sep, Paranoid schizophrenia F20.0 ; Posttraumatic stress disorder F43.10 ; Attention deficit hyperactivity disorder (ADHD), inattentive type, 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 and Borderline personality disorder F60.3 [facility] [address], [place] [address]- [address] Sep, Paranoid schizophrenia F20.0 [facility] [address], [place] [address]- 39[address] Aug, Paranoid schizophrenia F20.0 ; Posttraumatic stress disorder F43.10 ; Attention deficit hyperactivity disorder (ADHD), inattentive type, 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 and Borderline personality disorder F60.3 [facility] [address], [place] [address] 0164 Aug, Paranoid schizophrenia F20.0 ; Posttraumatic stress disorder F43.10 ; Attention deficit hyperactivity disorder (ADHD), inattentive type, 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 and Borderline personality disorder F60.3 [facility] [address], [place] [address]- [address] Aug, [facility] [id number] [place] [address]- 2897 Jul, Paranoid schizophrenia F20.0 ; Posttraumatic stress disorder F43.10 ; Attention deficit hyperactivity disorder (ADHD), inattentive type, 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 and Borderline personality disorder F60.3 [facility] [address], [place] [address]- 39[address] Jul, Paranoid schizophrenia F20.0 [facility] [address], [place] [address]- 87[address] Jul, Paranoid schizophrenia F20.0 ; Posttraumatic stress disorder F43.10 ; Attention deficit hyperactivity disorder (ADHD), inattentive type, 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 and Borderline personality disorder F60.3 [facility] [address], [place] [address]- 77[address] Jun, Paranoid schizophrenia F20.0 ; Posttraumatic stress disorder F43.10 ; Attention deficit hyperactivity disorder (ADHD), inattentive type, 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 and Borderline personality disorder F60.3 [facility] [address], [place] [address]- 79[address] May, Other jail (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 Z79.899 [facility] [address], [place] [address]- 44[address] May, [facility] [id number] [place] [address] 639[address]- 9435 May, [facility] [address] [facility] [id number] [address] May, Attention deficit hyperactivity disorder (ADHD), inattentive type, 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 [facility] [address] [facility] [id number] [address]- 9[address] May, [facility] [id number], [place] [address]24 May, Attention deficit hyperactivity disorder (ADHD), inattentive type, 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 [facility] [id number], [place] [address]- 6298 May, Paranoid schizophrenia F20.0 ; Posttraumatic stress disorder F43.10 ; Attention deficit hyperactivity disorder (ADHD), inattentive type, 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 and 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 [facility] [id number], [place] [address]- 18[address] Apr, Paranoid schizophrenia F20.0 [facility] [id number], [place] [address]- 2425 Apr, Paranoid schizophrenia F20.0 ; Posttraumatic stress disorder F43.10 and Attention deficit hyperactivity disorder (ADHD), inattentive type, 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 [facility] [address], [place] [address]- 7[address] February, [facility] [id number], [place] [address]- 12[address] February, Paranoid schizophrenia F20.0 ; Posttraumatic stress disorder F43.10 and Attention deficit hyperactivity disorder (ADHD), inattentive type, 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 [facility] [address] [facility] [id number], [place] [address]- 1801 February, Paranoid schizophrenia F20.0 ; Posttraumatic stress disorder F43.10 and Attention deficit hyperactivity disorder (ADHD), inattentive type, 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 [facility] [address] Jan, Paranoid schizophrenia F20.0 ; Posttraumatic stress disorder F43.10 and Attention deficit hyperactivity disorder (ADHD), inattentive type, 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 [facility] [address] [id number] Dec, Dental examination Z01.20 [facility] [address] [address] Nov, Dental examination Z01.20 [facility] [id number] [place] [address] [id number] Nov, Dental examination Z01.20 [facility] [id number] [place] [address] [id number] Nov, Dental caries K02.9 [facility] [id number] [place] [address] 13517- 3728 Nov, High risk medication use Z79.899 [facility] [id number] [place] [address] [id number]- 9160 Nov, Paranoid schizophrenia F20.0 ; Posttraumatic stress disorder F43.10 ; Attention deficit hyperactivity disorder (ADHD), inattentive type, 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 and Borderline personality disorder in adult F60.3 [facility] [address] [place] [address] [id number] Oct, Dental caries K02.9 [facility] [address] [place] [address] 95683- 4663 Sep, Paranoid schizophrenia F20.0 ; Posttraumatic stress disorder F43.10 and Attention deficit hyperactivity disorder (ADHD), inattentive type, 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 [facility] [address] [place] [address] 65174- 0575 Aug, Paranoid schizophrenia F20.0 ; Posttraumatic stress disorder F43.10 and Attention deficit hyperactivity disorder (ADHD), inattentive type, 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 [facility] [address] [place] [address]191 -4061 Aug, Strep throat J02.0 and Cough R05 [facility] [id number] [place] [address] 94879- 4090 Aug, [facility] [id number] [place] [address] 90227- 2349 Jul, Paranoid schizophrenia F20.0 ; Posttraumatic stress disorder F43.10 and Attention deficit hyperactivity disorder (ADHD), inattentive type, 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 [facility] [address], [place] [address]- 1781 Jul, [facility] [id number] [place] [address] 28232- 2550 Jun, Paranoid schizophrenia F20.0 ; Posttraumatic stress disorder F43.10 and Attention deficit hyperactivity disorder (ADHD), inattentive type, 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 [facility] [address] [place] [address] [id number] Jun, Dental examination Z01.20 [facility] [address] [place] [address] 80340- 6316 Jun, [facility] [id number] [place] [address] 02097- 2440 May, Paranoid schizophrenia F20.0 [facility] [address] [place] [address] 89077- 3745 May, Paranoid schizophrenia F20.0 ; Posttraumatic stress disorder F43.10 and Attention deficit hyperactivity disorder (ADHD), inattentive type, 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 [facility] [address], [place] [address]- 3840 May, [facility] [id number] [place] [address] 07150- 7962 May, Paranoid schizophrenia F20.0 [facility] [address], [place] [address]- 2913 May, [facility] [address] [facility] [id number], [place] [address]- 5955 May, Paranoid schizophrenia F20.0 [facility] [address] [facility] [id number] [place] [address]- 9326 May, Schizoaffective disorder, unspecified F25.9 [facility] [address] [facility] [id number] [place] [address]- 4246 May, Schizoaffective disorder, unspecified F25.9 [facility] [address] [facility] [id number] [place] [address]- 3686 May, [facility] [address] [facility] [id number] [place] [address]- 7585 May, Paranoid schizophrenia F20.0 [facility] [address] [facility] [id number] [place] [address]- 4067 May, Paranoid schizophrenia F20.0 ; Posttraumatic stress disorder F43.10 and Attention deficit hyperactivity disorder (ADHD), inattentive type, 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 [facility] [address] [facility] [id number], [place] [address]- 4025 Mar, [facility] [address] [facility] [id number], [place] [address]- 6451 Mar, Paranoid schizophrenia F20.0 ; Posttraumatic stress disorder F43.10 and Attention deficit hyperactivity disorder (ADHD), inattentive type, 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 [facility] [address] [facility] [id number], [place] [address]- 3925 Mar, Paranoid schizophrenia F20.0 [facility] [address] [facility] [id number], [place] [address]- 6635 Mar, Paranoid schizophrenia F20.0 ; Attention deficit hyperactivity disorder (ADHD), inattentive type, 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 and Posttraumatic stress disorder F43.10 [facility] [address] [facility] [id number], [place] [address]- 3596 Mar, [facility] [address] [address] 2723 Mar, Paranoid schizophrenia F20.0 ; Posttraumatic stress disorder F43.10 and Attention deficit hyperactivity disorder (ADHD), inattentive type, 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 [facility] [address] [facility] [id number], [place] [address]- 0426 February, [facility] [id number] [place] [address] 05524- 0574 February, [facility] [id number] [place] [address] 27912- 2730 February, [facility] [id number] [place] [address] 30119- 3919 February, [facility] [id number] [place] [address] 06605- 4944 Jan, Paranoid schizophrenia F20.0 [facility] [id number] [place] [address] [id number] Jan, Dental examination Z01.20 [facility] [id number] [place] [address] [id number] Jan, Dental caries K02.9 [facility] [id number] [place] [address] [id number] Jan, Dental examination Z01.20 [facility] [id number] [place] [address] [id number] Dec, Encounter for dental examination Z01.20 [facility] [address], [place] [address]- 8283 Dec, Paranoid schizophrenia F20.0 [facility] [id number] [place] [address] [id number] Dec, Dental examination Z01.20 [facility] [address] [facility] [id number] [address]287 Dec, [facility] [id number] [place] [address] 62029- 6774 Dec, Paranoid schizophrenia F20.0 ; Posttraumatic stress disorder F43.10 and Attention deficit hyperactivity disorder (ADHD), inattentive type, 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 [facility] [address], [place] [address]- 6679 Nov, Schizoaffective disorder, unspecified F25.9 [facility] [address] [place] [address] 14385- 0132 Oct, Paranoid schizophrenia F20.0 [facility] [id number] [place] [address] 22587- 9295 Oct, [facility] [id number] [place] [address] 92297- 0605 Sep, Paranoid schizophrenia F20.0 ; Posttraumatic stress disorder F43.10 and Attention deficit hyperactivity disorder (ADHD), inattentive type, 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 [facility] [address] [place] [address] 15243- 0826 Sep, [facility] [address] [place] [address] 85893- 0775 Sep, Paranoid schizophrenia F20.0 ; Posttraumatic stress disorder F43.10 and Attention deficit hyperactivity disorder (ADHD), inattentive type, 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 [facility] [address], [place] [address]- 9776 Aug, Paranoid schizophrenia F20.0 [facility] [address], [place] [address]- 6509 Aug, [facility] [id number], [place] [address]- 4867 Aug, Posttraumatic stress disorder F43.10 ; Paranoid schizophrenia F20.0 and Attention deficit hyperactivity disorder (ADHD), inattentive type, 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 [facility] [address], [place] [address]- 7334 Jul, Bipolar disorder, unspecified F31.9 [facility] [address], [place] [address]- 7442 Jul, [facility] [address], [place] [address]- 6353 Jun, [facility] [address], [place] [address]- 0620 Jun, Schizoaffective disorder, chronic 295.72 ; Posttraumatic stress disorder 309.81 and Attention deficit disorder of childhood without mention of hyperactivity 314.00 [facility] [address], [place] [address]- 0390 May, [facility] [address] [place] [address] 29914- 6894 May, [facility] [address], [place] [address]- 9929 May, Schizoaffective disorder, chronic 295.72 ; Posttraumatic stress disorder 309.81 ; Attention deficit disorder of childhood without mention of hyperactivity 314.00 and Bipolar disorder, unspecified 296.80 [facility] [address], [place] [address]- 5491 Apr, Schizoaffective disorder, chronic 295.72 [facility] [address], [place] [address]- 2937 Apr, [facility] [id number] [address]- 7361 Apr, Schizoaffective disorder, chronic 295.72 ; Posttraumatic stress disorder 309.81 and Attention deficit disorder of childhood without mention of hyperactivity 314.00 [facility] [facility] [id number], [place] [address] Mar, Disorganized schizophrenia, 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 [facility] [id number], [place] [address] Mar, [facility] [id number] [address] Mar, [facility] [id number], [place] [address] Mar, [facility] [id number], [place] [address] Mar, [facility] [id number], [place] [address] February, Schizoaffective disorder, chronic 295.72 [facility] [id number] [place] [address] February, [facility] [id number], [place] [address] 136[address] February, Attention deficit disorder of childhood without mention of hyperactivity 314.00 ; Posttraumatic stress disorder 309.81 and Schizoaffective disorder, chronic 295.72 [facility] [id number], [place] [address] 64[address] Jan, [facility] [id number], [place] [address] Jan, [facility] [id number], [place] [address] 48[address] Jan, [facility] [id number], [place] [address] 65[address] Dec, [facility] [id number], [place] [address] 5247 Dec, [facility] [id number], [place] [address] Dec, [facility] [id number], [place] [address] 4823 Dec, [facility] [id number], [place] [address] 8656 Dec, [facility] [id number], [place] [address] 4[address] Dec, [facility] [id number] [place] [address], [place] [address]- 59[address] Dec, [facility] [place] [facility] [address] [id number] [place] [address]- 9179 Dec, [facility] [place] [facility] [address] [id number] [place] [address]- 2330 Nov, 2014 [facility] [place] [facility] [address] [facility] [id number] [place] [address]- 8016 Nov, 2014 [facility] [place] [facility] [address] [id number] [place] [address]- 1242 Nov, 2014 [facility] [place] [facility] [address] [id number] [place] [address]- 2286 Nov, 2014 [facility] [place] [facility] [address] [facility] [id number] [place] [address]- 6422 Nov, 2014 [facility] [place] [facility] [address] [facility] [id number] [place] [address]- 9102 Nov, 2014 [facility] [place] [facility] [address] [facility] [id number] [place] [address]- 2107 Nov, [facility] [place] [facility] [address] [facility] [id number] [place] [address]- 3201 Nov, [facility] [place] [facility] [address] [facility] [id number] [place] [address]- 0644 Nov, [facility] [place] [facility] [address] [facility] [id number] [place] [address]- 0938 Nov, [facility] [place] [facility] [address] [id number] [place] [address]- 1362 Oct, [facility] [place] [facility] [address] [id number] [place] [address]- 5544 Oct, [facility] [place] [facility] [address] [facility] [id number] [place] [address]- 5162 Oct, [facility] [place] [facility] [address] [facility] [id number] [place] [address]- 2287 15 Oct, 2014 [facility] [place] [facility] [address] [id number] [place] [address]- 1919 15 Oct, 2014 [facility] [place] [facility] [address] [id number] [place] [address]- 8427 13 Oct, 2014 [facility] [place] [facility] [address] [id number] [place] [address]- 1862 Oct, [facility] [place] [facility] [address] [id number] [place] [address]- 1631 17 Sep, 2014 [facility] [place] [facility] [address] [id number] [place] [address]- 2324 17 Sep, 2014 [facility] [place] [facility] [address] [id number] [place] [address]- 4588 15 Sep, 2014 [facility] [place] [facility] [address] [id number] [place] [address]- 8988 15 Sep, 2014 [facility] [place] [facility] [address] [id number] [place] [address]- 9936 Aug, [facility] [place] [facility] [address] [id number] [place] [address]- 0915 20 Aug, 2014 [facility] [place] [facility] [address] [id number] [place] [address]- 5500 14 Aug, 2014 [facility] [place] [facility] [address] [id number] [address]- 0225 14 Aug, 2014 [facility] [place] [facility] [address] [id number] [address]- 8111 14 Aug, 2014 [facility] [place] [facility] [address] [id number] [place] [address]- 2651 Aug, [facility] [place] [facility] [address] [id number] [place] [address]- 5960 Jul, [facility] [place] [facility] [address] [id number] [place] [address]- 2961 Jul, [facility] [place] [facility] [address] [id number] [place] [address]- 0281 24 Jul, 2013 [facility] [place] [facility] [address] [id number] [place] [address]- 1156 24 Jul, 2014 [facility] [place] [facility] [address] [id number] [place] [address]- 9936 15 Jul, 2014 [facility] [place] [facility] [address] [id number] [place] [address]- 7476 15 Jul, 2014 [facility] [place] [facility] [address] [id number] [place] [address] 254 27 Sep, 2013 [facility] [place] [facility] [address] [id number] [place] [address]- 1961 27 Sep, 2013 [facility] [place] [facility] [address] [id number] [place] [address]- 9002 26 Jun, 2013 [facility] [place] [facility] [address] [id number] [place] [address]- 9911 26 Jun, 2013 [facility] [place] [facility] [address] [id number] [place] [address] 2540 26 Jun, 2013 [facility] [place] [facility] [address] [id number] [place] [address] 2541 26 Jun, 2013 [facility] [place] [facility] [address] [id number] [place] [address] 2541 16 Sep, 2013 [facility] [place] [facility] [address] [id number] [place] [address] 2546 16 Jun, 2013 [facility] [place] [facility] [address] [id number] [place] [address] 2545 16 Sep, 2013 [facility] [place] [facility] [address] [id number] [place] [address] 2546 16 Jun, 2013 [facility] [place] [facility] [address] [id number] [place] [address]- 2546 04 Jun, 2013 [facility] [place] [facility] [address] [id number] [place] [address]- 2544 May, [facility] [place] [facility] [address] [id number] [place] [address]- 2978 May, [facility] [place] [facility] [address] [id number] [place] [address]- 9162 May, [facility] [place] [facility] [address] [id number] [place] [address]- 6758 May, [facility] [place] [facility] [address] [id number] [place] [address]- 4417 May, [facility] [place] [facility] [address] [id number] [place] [address]- 2893 May, [facility] [place] [facility] [address] [id number] [place] [address]- 9054 May, [facility] [place] [facility] [address] [id number] [place] [address]- 6852 May, [facility] [place] [facility] [address] [id number] [place] [address]- 7662 May, [facility] [place] [facility] [address] [id number] [place] [address]- 7586 May, [facility] [place] [facility] [address] [id number] [place] [address]- 5463 Apr, [facility] [place] [facility] [address] [id number] [place] [address]- 3834 Apr, [facility] [place] [facility] [address] [id number] [place] [address]- 5628 Apr, [facility] [place] [facility] [address] [id number] [place] [address]- 4346 Apr, [facility] [place] [facility] [address] [id number] [place] [address]- 6040 Apr, [facility] [place] [facility] [address] [id number] [place] [address]- 4072 Apr, [facility] [place] [facility] [address] [id number] [place] [address]- 9511 17 Apr, 2014 [facility] [place] [facility] [address] [id number] [place] [address]- 7283 Apr, [facility] [place] [facility] [address] [id number] [place] [address]- 7708 Apr, [facility] [place] [facility] [address] [id number] [place] [address]- 8869 Apr, [facility] [place] [facility] [address] [id number] [place] [address]- 0308 Mar, [facility] [place] [facility] [address] [id number] [place] [address]- 1576 Mar, [facility] [place] [facility] [address] [id number] [place] [address]- 7641 Mar, [facility] [place] [facility] [address] [id number] [place] [address]- 5528 Mar, [facility] [place] [facility] [address] [id number] [place] [address]- 8433 Mar, [facility] [place] [facility] [address] [id number] [place] [address]- 6454 18 Mar, 2014 [facility] [place] [facility] [address] [id number] [place] [address]- 2285 18 Mar, 2014 [facility] [place] [facility] [address] [id number] [place] [address]- 1965 16 Mar, 2014 [facility] [place] [facility] [address] [id number] [place] [address]- 8746 16 Mar, 2014 [facility] [place] [facility] [address] [id number] [place] [address]- 4012 13 Mar, 2014 [facility] [place] [facility] [address] [id number] [place] [address]- 1848 13 Mar, 2014 [facility] [place] [facility] [address] [id number] [place] [address]- 2121 11 Mar, 2014 [facility] [place] [facility] [address] [id number] [place] [address]- 1050 Mar, [facility] [place] [facility] [address] [id number] [place] [address]- 4671 Mar, [facility] [place] [facility] [address] [id number] [place] [address]- 8773 Mar, [facility] [place] [facility] [address] [id number] [place] [address]- 8244 Mar, [facility] [place] [facility] [address] [id number] [place] [address]- 8817 Mar, [facility] [place] [facility] [address] [id number] [place] [address]- 5690 Mar, [facility] [place] [facility] [address] [id number] [place] [address]- 7167 Mar, [facility] [place] [facility] [address] [id number] [place] [address]- 0331 Mar, [facility] [place] [facility] [address] [id number] [place] [address]- 6503 February, [facility] [place] [facility] [address] [id number] [place] [address]- 4124 February, [facility] [place] [facility] [address] [id number] [place] [address]- 3534 February, [facility] [place] [facility] [address] [id number] [place] [address]- 2381 February, [facility] [place] [facility] [address] [id number] [place] [address]- 1699 February, [facility] [place] [facility] [address] [id number] [place] [address]- 4400 February, [facility] [place] [facility] [address] [id number] [place] 8338 February, [facility] [place] [facility] [address] [id number] [place] 3264 February, [facility] [address] [id number] [place] [address]- 5444 February, [facility] [place] [facility] [address] [id number] [place] [address]- 5209 February, [facility] [place] [facility] [address] [id number] [place] [address]- 8023 February, [facility] [place] [facility] [address] [id number] [place] [address]- 5228 February, [facility] [place] [facility] [address] [id number] [place] [address]- 6411 February, [facility] [place] [facility] [address] [id number] [place] [address]- 3372 February, [facility] [place] [facility] [address] [id number] [place] [address]- 1863 February, [facility] [place] [facility] [address] [id number] [place] [address]- 5649 February, [facility] [place] [facility] [address] [id number] [place] [address]- 7018 February, [facility] [place] [facility] [address] [id number] [place] [address]- 1257 February, [facility] [place] [facility] [address] [id number] [place] [address]- 7768 February, [facility] [place] [facility] [address] [id number] [place] [address]- 0112 February, [facility] [place] [facility] [address] [id number] [place] [address]- 3082 February, [facility] [place] [facility] [address] [id number] [place] [address]- 1941 Jan, [facility] [place] [facility] [address] [id number] [place] [address]- 4059 Jan, [facility] [place] [facility] [address] [id number] [place] [address]- 0712 18 Jan, 2014 [facility] [place] [facility] [address] [id number] [place] [address]- 6523 18 Jan, 2014 [facility] [place] [facility] [address] [id number] [place] [address]- 5089 18 Jan, 2014 [facility] [place] [facility] [address] [id number] [place] [address]- 0382 18 Jan, 2014 [facility] [place] [facility] [address] [id number] [place] [address]- 5974 10 Jan, 2014 [facility] [place] [facility] [address] [id number] [place] [address]- 4236 10 Jan, 2014 [facility] [place] [facility] [address] [id number] [place] [address]- 1661 21 Dec, 2013 [facility] [place] [facility] [address] [id number] [place] [address]- 8881 20 Dec, 2013 [facility] [place] [facility] [address] [id number] [place] [address]- 1211 20 Dec, 2013 [facility] [place] [facility] [address] [id number] [place] [address]- 1349 19 Dec, 2013 [facility] [place] [facility] [address] [facility] [id number] [place] [address]- 1537 19 Dec, 2013 [facility] [place] [facility] [address] [id number] [place] [address]- 0449 15 Dec, 2013 [facility] [place] [facility] [address] [id number] [place] [address]- 8034 15 Dec, 2013 [facility] [place] [facility] [address] [id number] [place] [address]- 9450 11 Dec, 2013 [facility] [place] [facility] [address] [id number] [place] [address]- 6528 10 Dec, 2013 [facility] [place] [facility] [address] [id number] [place] [address]- 0467 10 Dec, 2013 [facility] [place] [facility] [address] [id number] [place] [address]- 9680 Nov, [facility] [place] [facility] [address] [id number] [place] [address]- 5885 Nov, [facility] [place] [facility] [address] [id number] [place] [address]- 2546 Nov, [facility] [place] [facility] [address] [id number] [place] [address]- 0986 Nov, [facility] [place] [facility] [address] [id number] [place] [address]- 9651 Nov, [facility] [place] [facility] [address] [id number] [place] [address]- 9344 Oct, [facility] [place] [facility] [address] [id number] [place] [address]- 2027 Oct, [facility] [place] [facility] [address] [id number] [place] [address]- 5620 Oct, [facility] [place] [facility] [address] [id number] [place] 4679 Sep, [facility] [place] [facility] [address] [facility] [id number] [place] [address]- 8794 Sep, [facility] [place] [facility] [address] [facility] [id number] [place] [address]- 1964 Sep, [facility] [place] [facility] [address] [id number], [place] [address]- 1905 Sep, [facility] [place] [facility] [address] [id number] [place] [address]- 9653 Aug, [facility] [place] [facility] [address] [id number] [place] [address]- 6048 Aug, [facility] [place] [facility] [address] [id number] [place] [address]- 3777 Jul, [facility] [place] [facility] [address] [id number] [place] [address]- 9080 Jul, [facility] [place] [facility] [address] [id number] [place] [address]- 8199 Jul, [facility] [place] [facility] [address] [id number] [place] [address]- 3496 Jul, [facility] [place] [facility] [address] [id number] [place] [address]- 0156 Jul, [facility] [place] [facility] [address] [id number] [place] [address]- 5469 Jun, [facility] [place] [facility] [address] [id number] [place] [address]- 8177 25 Jun, 2013 [facility] [place] [facility] [address] [id number] [place] [address]- 0437 19 Jun, 2013 [facility] [place] [facility] [address] [id number] [place] [address]- 6737 18 Jun, 2013 [facility] [place] [facility] [address] [id number] [place] [address]- 6756 16 Jun, 2013 [facility] [place] [facility] [address] [id number] [place] [address]- 5107 12 Jun, 2013 [facility] [place] [facility] [address] [id number] [place] [address]- 2964 Jun, [facility] [place] [facility] [address] [id number] [place] [address]- 2731 May, [facility] [place] [facility] [address] [id number] [place] [address]- 2680 May, [facility] [place] [facility] [address] [id number] [place] [address]- 7313 Apr, [facility] [place] [facility] [address] [id number] [place] [address]- 9454 Apr, [facility] [place] [facility] [address] [id number] [place] [address]- 7391 Apr, [facility] [place] [facility] [address] [id number] [place] [address]- 5406 Mar, [facility] [address] [id number] [place] [address]- 6549 Mar, [facility] [address] [id number] [place] [address] 2546 February, [facility] [address] [id number] [place] [address]- 0676 February, [facility] [address] [id number] [place] [address]- 9770 February, [facility] [address] [id number] [place] [address]- 1906 February, [facility] [address] [id number] [place] [address]- 4790 Jan, [facility] [address] [id number] [place] [address]- 8205 Jan, [facility] [address] [id number] [place] [address]- 7789 16 Jan, 2013 [facility] [address] [id number] [place] [address]- 2170 Dec, [facility] [address] [id number] [place] [address]- 6796 Dec, [facility] [address] [id number] [place] [address]- 9936 Dec, [facility] [address] [id number] [place] [address]- 8085 Dec, [facility] [address] [id number] [place] [address]- 2222 Nov, [facility] [address] [id number] [place] [address] Nov, [facility] [address] [id number] [place] [address] Oct, [facility] [place] [facility] [address] [id number] [place] [address] Oct, [facility] [place] [facility] [address] [id number] [place] [address] Oct, [facility] [place] [facility] [address] [id number] [place] [address] Oct, [facility] [place] [facility] [address] [id number] [place] [address] Aug, [facility] [place] [facility] [address] [id number] [place] [address] Aug, [facility] [place] [facility] [address] [id number] [place] [address] Jun, [facility] [place] [facility] [address] [id number] [place] [address] May, [facility] [place] [facility] [address] [id number] [place] [address] May, [facility] [place] [facility] [address] [id number] [place] [address] Apr, [facility] [place] [facility] [address] [id number] [place] [address] Apr, [facility] [place] [facility] [address] [id number] [place] [address] Apr, [facility] [place] [facility] [address] [id number], [place] [address] Mar, [facility] [place] [facility] [address] [id number] [place] [address] Mar, [facility] [place] [facility] [address] [id number] [place] [address] Mar, [facility] [place] [facility] [address] [id number] [place] [address] Mar, [facility] [place] [facility] [address] [id number] [place] [address] Mar, [facility] [address] [id number] [place] [address] February, [facility] [address] [id number] [place] [address] February, [facility] [address] [id number] [place] [address] February, [facility] [address] [id number] [place] [address] February, [facility] [address] [id number] [place] [address] 270[address] February, [facility] [address] [id number] [place] [address] February, [facility] [address] [id number] [place] [address] February, [facility] [address] [id number] [place] [address] Jan, [facility] [address] [id number] [place] [address] Jan, [facility] [address] [id number] [place] [address] Jan, [facility] [address] [id number] [place] [address]- [address] 13 Jan, 2012 [facility] [place] [facility] [address] [id number] [place] [address]- [address] 10 Jan, 2012 [facility] [place] [facility] [address] [id number] [place] [address]- [address] 04 Jan, 2012 [facility] [place] [facility] [address] [id number] [place] [address] 30 Dec, 2011 [facility] [address] [id number] [place] [address] 24 Dec, 2011 [facility] [address] [id number] [place] [address]- [address] 20 Dec, 2011 [facility] [place] [facility] [address] [id number] [place] [address] Dec, [facility] [place] [facility] [address] [id number] [place] [address] Dec, [facility] [place] [facility] [address] [id number] [place] [address] Nov, [facility] [place] [facility] [address] [id number] [place] [address] Nov, [facility] [place] [facility] [address] [id number] [place] [address] Nov, [facility] [place] [facility] [address] [id number] [place] [address]- [address] 14 Nov, 2011 [facility] [place] [facility] [address] [id number] [place] [address]- 94[address] Nov, [facility] [place] [facility] [address] [id number] [place] [address] Nov, [facility] [place] [facility] [address] [id number] [place] [address] Oct, [facility] [place] [facility] [address] [id number] [place] [address] Oct, [facility] [place] [facility] [address] [id number] [place] [address] Oct, [facility] [place] [facility] [address] [id number] [place] [address] Oct, [facility] [place] [facility] [address] [id number] [place] [address]- 2506 Oct, [facility] [place] [facility] [address] [id number] [place] [address]- [address] Sep, [facility] [place] [facility] [address] [id number] [place] [address]- [address] 21 Sep, 2011 [facility] [place] [facility] [address] [id number] [place] [address]- [address] 20 Sep, 2011 [facility] [place] [facility] [address] [id number] [place] [address]- 1516 14 Sep, 2011 [facility] [place] [facility] [address] [id number] [place] [address]- [address] 14 Sep, 2011 [facility] [place] [facility] [address] [id number] [place] [address]- 139[address] 13 Sep, 2011 [facility] [place] [facility] [address] [id number] [place] [address]- [address] 12 Sep, 2011 [facility] [place] [facility] [address] [id number] [place] [address]- 38[address] 09 Sep, 2011 [facility] [place] [facility] [address] [id number] [place] [address]- [address] 05 Sep, 2011 [facility] [place] [facility] [address] [id number] [place] [address]- [address] 30 Aug, 2011 [facility] [place] [facility] [address] [id number] [place] [address]- [address]164 30 Aug, 2011 [facility] [place] [facility] [address] [id number] [place] [address]- 407[address] 25 Aug, 2011 [facility] [place] [facility] [address] [id number] [place] [address]- 9148 Aug, [facility] [place] [facility] [address] [id number] [place] [address]- [address] 23 Aug, 2011 [facility] [place] [facility] [address] [id number] [place] [address]- 6[address] 22 Aug, 2011 [facility] [place] [facility] [address] [id number] [place] [address]- 2899 16 Aug, 2011 [facility] [place] [facility] [address] [id number] [place] [address]- 9145 16 Aug, 2011 [facility] [place] [facility] [address] [id number] [place] [address]- 50[address] Aug, [facility] [place] [facility] [address] [id number] [place] [address]- 57[address] Aug, [facility] [place] [facility] [address] [id number] [place] [address]- 6[address] Aug, [facility] [place] [facility] [address] [id number] [place] [address]- 79[address] Aug, [facility] [place] [facility] [address] [id number] [place] [address] Jul, [facility] [place] [facility] [address] [id number] [place] [address] Jul, [facility] [place] [facility] [address] [id number] [place] [address] Jul, [facility] [place] [facility] [address] [id number] [place] [address] Jul, [facility] [place] [facility] [address] [id number] [place] [address] Jul, [facility] [place] [facility] [address] [id number] [place] [address] Jul, [facility] [place] [facility] [address] [id number] [place] [address] Jul, [facility] [place] [facility] [address] [id number] [place] [address] Jul, [facility] [place] [facility] [address] [id number] [place] [address] Jul, [facility] [place] [facility] [address] [id number] [place] [address] Jul, [facility] [place] [facility] [address] [id number] [place] [address] Nov, [facility] [place] [facility] [address] [id number] [place] [address] Aug, [facility] [address] [facility] [id number], [place] [address] Aug, [facility] [address] [facility] [id number], [place] [address] Aug, [facility] [address] [facility] [id number], [place] [address] Aug, [facility] [address] [facility] [id number], [place] [address] Jul, IMMUNIZATIONS No Known Immunizations SOCIAL HISTORY Never Assessed REASON FOR VISIT Rash- ER last night, not sent home with anything. States [facility] is not working. has decreased meds to be on the safe side JStrasserRNiharika PLAN OF CARE Activity Details Follow Up prn Reason: VITAL SIGNS Height 65.75 in 2018-08-16 Weight 198.4 lbs 2018-08-16 Temperature 98.6 degrees Fahrenheit 2018-08-16 Heart Rate 84 bpm 2018-08-16 Respiratory Rate 20 2018-08-16 BMI 32.26 kg/m2 2018-08-16 Blood pressure systolic 110 mmHg 2018-08-16 Blood pressure diastolic 80 mmHg 2018-08-16 MEDICATIONS Medication Instructions Dosage Frequency Start Date End Date Duration Status Trintellix 20 mg orally Once a day 1 tablet 24h 30 Active Topamax 100 mg Orally Twice a day 1.5 tablet 12h 30 Active Ventolin HFA 90 MCG/ACT Inhalation every 6 hrs 2 puffs as needed 6h Active Hydrocodone-Acetaminophen 10-325 mg 1 Tablet by Oral route every 8 hours PRN pain Jul, Active Benadryl Allergy 25 MG Orally every 8 hrs 1 tablet as needed 8h Active Levemir 100 UNIT/ML Subcutaneous at bedtime 70 units Active Levothyroxine Sodium 75 MCG Orally Once a day 1 tablet on an empty stomach in the morning 24h Active Intuniv 2 MG Orally Once a day 1 tablet 24h Active Cyproheptadine HCl 4 MG Orally Twice a day 1 tablet 12h 30 days Active NovoLog Mix 70/30 (70-30) 100 UNIT/ML Subcutaneous 3 times a day 27 units 8h Active Invega 6 MG Orally Once a day 1 tablet in the morning 24h 30 days Active Trileptal 300 MG Orally Twice a day 1 tablet 12h 30 Active RESULTS No Results PROCEDURES No Known procedures INSTRUCTIONS MEDICATIONS ADMINISTERED No Known Medications MEDICAL (GENERAL) HISTORY Type Description Date Medical History diabetes Medical History thyroid Surgical History appendix Surgical History gallbladder Surgical History eyes Surgical History hip Surgical History MRI on back and pelvis 06/08 Hospitalization History surgeries Hospitalization History [facility] Suicide attempt by hanging 06/14/2016 Hospitalization History [facility] 01/30/2018-02/10/2008 Hospitalization History [facility] 05/04/18-05/09/18
--- OUTSIDE RECORDS SUMMARY | 2018-11-13 01:35 | XMS REPORT ---
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 22060395 Problem Schizoaffective disorder, depressive type F25.1 Active 40732027 Problem Borderline personality disorder F60.3 Active 56916465 Problem Attention deficit hyperactivity disorder (ADHD), inattentive type, 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 97706412 Problem Schizoaffective disorder, unspecified F25.9 Active 59281598 Problem High risk medication use Z79.899 Active 458401914 Problem Posttraumatic stress disorder F43.10 Active 20163625 Problem Obsessive-compulsive disorders 300.3 Active 246799155 Problem Generalized anxiety disorder 300.02 Active 91422347 Problem Attention deficit disorder of childhood without mention of hyperactivity 314.00 Active 20423789 Problem Bipolar disorder, unspecified 296.80 Active 13261831 Problem Posttraumatic stress disorder 309.81 Active 20259087 Problem Paranoid schizophrenia, unspecified condition 295.30 Active 25525276 ALLERGIES No Information ENCOUNTERS Encounter Location Date Diagnosis [facility] [id number] [address] Aug, [facility] [address] [address] Jul, Dry skin dermatitis L85.3 [facility] [id number] [address] Jul, [facility] [address] [place] [address] Jul, Paranoid schizophrenia F20.0 [facility] [id number] [address] May, Paranoid schizophrenia F20.0 ; Posttraumatic stress disorder F43.10 ; Attention deficit hyperactivity disorder (ADHD), inattentive type, 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 and Borderline personality disorder F60.3 [facility] [address] [address] May, [facility] [address] [address] May, Paranoid schizophrenia F20.0 [facility] [address] [address] May, Paranoid schizophrenia F20.0 ; Posttraumatic stress disorder F43.10 ; Attention deficit hyperactivity disorder (ADHD), inattentive type, 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 and Borderline personality disorder F60.3 [facility] [address] [address] Apr, [facility] [address] [address] Apr, Paranoid schizophrenia F20.0 ; Posttraumatic stress disorder F43.10 ; Attention deficit hyperactivity disorder (ADHD), inattentive type, 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 and Borderline personality disorder F60.3 [facility] [address] [address] Apr, [facility] [id number] [address] Apr, Schizoaffective disorder, depressive type F25.1 and Borderline personality disorder F60.3 [facility] [id number] [address] Apr, Paranoid schizophrenia F20.0 ; Posttraumatic stress disorder F43.10 ; Attention deficit hyperactivity disorder (ADHD), inattentive type, 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 and Borderline personality disorder F60.3 [facility] [id number] [address] Apr, [facility] [address] [address] Apr, Paranoid schizophrenia F20.0 ; Posttraumatic stress disorder F43.10 ; Attention deficit hyperactivity disorder (ADHD), inattentive type, 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 and Borderline personality disorder F60.3 [facility] [address] [address] Apr, [facility] [id number] [address] Mar, Paranoid schizophrenia F20.0 [facility] [id number] [address] 79[address] Mar, [facility] [address] [address] Mar, Paranoid schizophrenia F20.0 ; Posttraumatic stress disorder F43.10 ; Attention deficit hyperactivity disorder (ADHD), inattentive type, 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 and Borderline personality disorder F60.3 [facility] [address] [address] February, Paranoid schizophrenia F20.0 [facility] [id number] [address] February, Paranoid schizophrenia F20.0 ; Posttraumatic stress disorder F43.10 ; Attention deficit hyperactivity disorder (ADHD), inattentive type, 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 and Borderline personality disorder F60.3 [facility] [id number] [address] February, Paranoid schizophrenia F20.0 ; Posttraumatic stress disorder F43.10 ; Attention deficit hyperactivity disorder (ADHD), inattentive type, 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 and Borderline personality disorder F60.3 [facility] [id number] [address] February, [facility] [id number] [address] February, Paranoid schizophrenia F20.0 [facility] [id number] [place] [address] February, Paranoid schizophrenia F20.0 [facility] [id number] [place] [address] 6[address] February, Paranoid schizophrenia F20.0 ; Posttraumatic stress disorder F43.10 ; Attention deficit hyperactivity disorder (ADHD), inattentive type, 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 and Borderline personality disorder F60.3 [facility] [id number] [place] [address] Jan, Paranoid schizophrenia F20.0 ; Posttraumatic stress disorder F43.10 ; Attention deficit hyperactivity disorder (ADHD), inattentive type, 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 and Borderline personality disorder F60.3 [facility] [address] [address] Jan, Paranoid schizophrenia F20.0 [facility] [id number] [place] [address]- 7[address] Jan, Paranoid schizophrenia F20.0 [facility] [id number] [address] Jan, Paranoid schizophrenia F20.0 ; Posttraumatic stress disorder F43.10 ; Attention deficit hyperactivity disorder (ADHD), inattentive type, 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 and Borderline personality disorder F60.3 [facility] [id number] [address] Dec, [facility] [id number] [address] Nov, Paranoid schizophrenia F20.0 ; Posttraumatic stress disorder F43.10 ; Attention deficit hyperactivity disorder (ADHD), inattentive type, 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 and Borderline personality disorder F60.3 [facility] [id number] [address] Nov, [facility] [address] [address] Oct, Paranoid schizophrenia F20.0 [facility] [address] [address]- [address] Oct, Paranoid schizophrenia F20.0 ; Posttraumatic stress disorder F43.10 ; Attention deficit hyperactivity disorder (ADHD), inattentive type, 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 ; Borderline personality disorder F60.3 and Other director imaging ( 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 Z79.899 [facility] [address] [address]- [address] Oct, [facility] [address] [place] [address]- 4336 Oct, [facility] [address] [address]- 0[address] Sep, [facility] [address] [place] [address]- [address] Sep, Paranoid schizophrenia F20.0 ; Posttraumatic stress disorder F43.10 ; Attention deficit hyperactivity disorder (ADHD), inattentive type, 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 and Borderline personality disorder F60.3 [facility] [address] [address] Sep, Paranoid schizophrenia F20.0 [facility] [address] [address]- [address] Aug, Paranoid schizophrenia F20.0 ; Posttraumatic stress disorder F43.10 ; Attention deficit hyperactivity disorder (ADHD), inattentive type, 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 and Borderline personality disorder F60.3 [facility] [address] [address]- [address] Aug, Paranoid schizophrenia F20.0 ; Posttraumatic stress disorder F43.10 ; Attention deficit hyperactivity disorder (ADHD), inattentive type, 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 and Borderline personality disorder F60.3 [facility] [address] [address]- [address] Aug, [facility] [address] [address]- 3[address] Jul, Paranoid schizophrenia F20.0 ; Posttraumatic stress disorder F43.10 ; Attention deficit hyperactivity disorder (ADHD), inattentive type, 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 and Borderline personality disorder F60.3 [facility] [address] [address]- 1676 Jul, Paranoid schizophrenia F20.0 [facility] [address] [address]- [address] Jul, Paranoid schizophrenia F20.0 ; Posttraumatic stress disorder F43.10 ; Attention deficit hyperactivity disorder (ADHD), inattentive type, 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 and Borderline personality disorder F60.3 [facility] [address] [address]- [address] Jun, Paranoid schizophrenia F20.0 ; Posttraumatic stress disorder F43.10 ; Attention deficit hyperactivity disorder (ADHD), inattentive type, 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 and Borderline personality disorder F60.3 [facility] [address] [address]- [address] May, Other director imaging (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 Z79.899 [facility] [address] [address]- 48[address] May, [facility] [address] [address]- 2523 May, [facility] [address] [address]- 6127 May, Attention deficit hyperactivity disorder (ADHD), inattentive type, 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 [facility] [address] [address]- 2232 May, [facility] [address] [address]- 12[address] May, Attention deficit hyperactivity disorder (ADHD), inattentive type, 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 [facility] [address] [address]- 8440 May, Paranoid schizophrenia F20.0 ; Posttraumatic stress disorder F43.10 ; Attention deficit hyperactivity disorder (ADHD), inattentive type, 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 and Other mcc (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 Z79.899 [facility] [address] [address]- 9392 Apr, Paranoid schizophrenia F20.0 [facility] [address] [address]- 1258 Apr, Paranoid schizophrenia F20.0 ; Posttraumatic stress disorder F43.10 and Attention deficit hyperactivity disorder (ADHD), inattentive type, 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 [facility] [address] [address]- [address] February, [facility] [address], [place] [address]- 6[address] February, Paranoid schizophrenia F20.0 ; Posttraumatic stress disorder F43.10 and Attention deficit hyperactivity disorder (ADHD), inattentive type, 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 [facility] [address] [address]- [address] February, Paranoid schizophrenia F20.0 ; Posttraumatic stress disorder F43.10 and Attention deficit hyperactivity disorder (ADHD), inattentive type, 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 [facility] [address] [address]- 125[address] Jan, Paranoid schizophrenia F20.0 ; Posttraumatic stress disorder F43.10 and Attention deficit hyperactivity disorder (ADHD), inattentive type, 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 [facility] [address] [id number] [address] Dec, Dental examination Z01.20 [facility] [address] [id number] [address] Nov, Dental examination Z01.20 [facility] [address] [address] 23 Nov, 2016 Dental examination Z01.20 [facility] [address] [address] 14 Nov, 2016 Dental caries K02.9 [facility] [address] [place] [address]11- 5132 13 Nov, 2016 High risk medication use Z79.899 [facility] [id number] [place] [address] 82165- 9548 Nov, Paranoid schizophrenia F20.0 ; Posttraumatic stress disorder F43.10 ; Attention deficit hyperactivity disorder (ADHD), inattentive type, 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10 and Attention deficit hyperactivity disorder (ADHD), inattentive type, 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 [facility] [address] [address] Aug, Strep throat J02.0 and Cough R05 [facility] [id number] [place] [address]31- 5497 Aug, [facility] [address] [place] [address] 83181- 8234 24 Jul, 2016 Paranoid schizophrenia F20.0 ; Posttraumatic stress disorder F43.10 and Attention deficit hyperactivity disorder (ADHD), inattentive type, 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 [facility] [address] [facility] [id number] [address]- [address] Jul, [facility] [address] [facility] [id number] [place] [address] 67056- 7271 Jun, Paranoid schizophrenia F20.0 ; Posttraumatic stress disorder F43.10 and Attention deficit hyperactivity disorder (ADHD), inattentive type, 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 [facility] [address] [facility] [id number] [address] Jun, Dental examination Z01.20 [facility] [address] [facility] [id number] [address]- [address] Jun, [facility] [id number] [place] [address]10- 6856 May, Paranoid schizophrenia F20.0 [facility] [id number] [address]- 9097 May, Paranoid schizophrenia F20.0 ; Posttraumatic stress disorder F43.10 and Attention deficit hyperactivity disorder (ADHD), inattentive type, 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 [facility] [address] [facility] [id number] [address]- 2694 May, [facility] [address] [facility] [id number] [address]- 3530 May, Paranoid schizophrenia F20.0 [facility] [address] [facility] [id number] [address]- 4272 May, [facility] [address] [facility] [id number] [address]- 5773 May, Paranoid schizophrenia F20.0 [facility] [address] [facility] [id number], [place] [address]- 6674 May, Schizoaffective disorder, unspecified F25.9 [facility] [address] [facility] [id number] [address]- 3841 May, Schizoaffective disorder, unspecified F25.9 [facility] [address] [facility] [id number] [address]- 0405 May, [facility] [id number] [address]- 6904 May, Paranoid schizophrenia F20.0 [facility] [id number] [address]- 4281 May, Paranoid schizophrenia F20.0 ; Posttraumatic stress disorder F43.10 and Attention deficit hyperactivity disorder (ADHD), inattentive type, 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 [facility] [id number] [address]- 3[address] Mar, [facility] [id number] [address]- 3449 Mar, Paranoid schizophrenia F20.0 ; Posttraumatic stress disorder F43.10 and Attention deficit hyperactivity disorder (ADHD), inattentive type, 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 [facility] [id number] [address]- 4895 Mar, Paranoid schizophrenia F20.0 [facility] [id number] [address]- 3704 Mar, Paranoid schizophrenia F20.0 ; Attention deficit hyperactivity disorder (ADHD), inattentive type, 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 and Posttraumatic stress disorder F43.10 [facility] [id number] [address]- 1061 Mar, [facility] [id number] [address]- 6049 Mar, Paranoid schizophrenia F20.0 ; Posttraumatic stress disorder F43.10 and Attention deficit hyperactivity disorder (ADHD), inattentive type, 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 [facility] [address] [facility] [id number] [address]- 3338 February, [facility] [id number] [address]- 3501 February, [facility] [address] [address]- 4916 February, [facility] [id number] [place] [address] [id number]- 2058 February, [facility] [address] [place] [address] 87267- 1320 Jan, Paranoid schizophrenia F20.0 [facility] [id number] [place] [id number] Jan, Dental examination Z01.20 [facility] [id number] [place] [address] [id number] Jan, Dental caries K02.9 [facility] [id number] [place] [id number] Jan, Dental examination Z01.20 [facility] [id number] [place] [address] [id number] Dec, Encounter for dental examination Z01.20 [facility] [address] [place] [address] 69182- 1231 Dec, Paranoid schizophrenia F20.0 [facility] [id number] [place] [address] [id number] Dec, Dental examination Z01.20 [facility] [address] [address]- 7644 Dec, [facility] [id number] [place] [address] 99148- 8694 Dec, Paranoid schizophrenia F20.0 ; Posttraumatic stress disorder F43.10 and Attention deficit hyperactivity disorder (ADHD), inattentive type, 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 [facility] [address] [place] [address] 56389- 2203 Nov, Schizoaffective disorder, unspecified F25.9 [facility] [address] [address]- 3496 Oct, Paranoid schizophrenia F20.0 [facility] [address] [address]- 0736 Oct, [facility] [id number] [address]- 7206 Sep, Paranoid schizophrenia F20.0 ; Posttraumatic stress disorder F43.10 and Attention deficit hyperactivity disorder (ADHD), inattentive type, 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 [facility] [address] [place] [address] 70318- 6168 Sep, [facility] [address] [place] [address] 93070- 5401 Sep, Paranoid schizophrenia F20.0 ; Posttraumatic stress disorder F43.10 and Attention deficit hyperactivity disorder (ADHD), inattentive type, 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 [facility] [address] [address]- 5233 Aug, Paranoid schizophrenia F20.0 [facility] [address] [address]- 0293 Aug, [facility] [address] [place] [address] 72083- 6167 Aug, Posttraumatic stress disorder F43.10 ; Paranoid schizophrenia F20.0 and Attention deficit hyperactivity disorder (ADHD), inattentive type, 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 [facility] [address] [address]- 1265 Jul, Bipolar disorder, unspecified F31.9 [facility] [address] [address]- 5805 Jul, [facility] [id number] [place] [address] 49521- 1729 Jun, [facility] [address] [address]- 2647 Jun, Schizoaffective disorder, chronic 295.72 ; Posttraumatic stress disorder 309.81 and Attention deficit disorder of childhood without mention of hyperactivity 314.00 [facility] [address] [address]- 4797 May, [facility] [address] [place] [address] 34177- 6863 May, [facility] [address] [address]- 3684 May, Schizoaffective disorder, chronic 295.72 ; Posttraumatic stress disorder 309.81 ; Attention deficit disorder of childhood without mention of hyperactivity 314.00 and Bipolar disorder, unspecified 296.80 [facility] [address] [address]- 0420 Apr, Schizoaffective disorder, chronic 295.72 [facility] [address] [place] [address] 30733- 7192 Apr, [facility] [id number] [place] [address] 46066- 5834 Apr, Schizoaffective disorder, chronic 295.72 ; Posttraumatic stress disorder 309.81 and Attention deficit disorder of childhood without mention of hyperactivity 314.00 [facility] [address] [address]- 9897 Mar, Disorganized schizophrenia, 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 [facility] [id number] [address] Mar, [facility] [id number] [address] Mar, [facility] [id number] [address] Mar, [facility] [id number] [place] [address] Mar, [facility] [id number] [address] February, Schizoaffective disorder, chronic 295.72 [facility] [id number] [place] [address] February, [facility] [id number] [address] February, Attention deficit disorder of childhood without mention of hyperactivity 314.00 ; Posttraumatic stress disorder 309.81 and Schizoaffective disorder, chronic 295.72 [facility] [id number] [address] Jan, [facility] [id number] [place] [address]- 4429 Jan, [facility] [id number] [place] [address] 85014- 1398 Jan, [facility] [id number] [place] [address] 66054- 0790 Dec, [facility] [id number] [place] [address] 173248- 3199 Dec, [facility] [id number] [address] 6214 Dec, [facility] [id number] [address] 2424 Dec, [facility] [id number] 4543 Dec, [facility] [id number] [address]- 1268 Dec, [facility] [id number] [address] 6274 Dec, [facility] [id number] [address] 3409 Dec, [facility] [id number] [address]- 6208 Nov, [facility] [id number] [address]- 6516 Nov, [facility] [place] [facility] [address] [id number] [place] [address]- 7590 Nov, [facility] [place] [facility] [address] [id number] [place] [address]- 5439 Nov, 2014 [facility] [place] [facility] [address] [id number] [place] [address]- 1496 Nov, 2014 [facility] [place] [facility] [address] [id number] [place] [address]- 2007 Nov, 2014 [facility] [place] [facility] [address] [id number] [place] [address]- 9280 Nov, [facility] [place] [facility] [address] [id number] [place] [address]- 7961 Nov, [facility] [place] [facility] [address] [facility] [id number] [place] [address]- 6403 Nov, [facility] [place] [facility] [address] [id number] [place] [address]- 7548 Nov, [facility] [place] [facility] [address] [id number] [place] [address]- 6130 Oct, [facility] [place] [facility] [address] [facility] [id number] [address]- 3260 Oct, [facility] [place] [facility] [address] [id number] [address]- 5769 Oct, [facility] [place] [facility] [address] [id number] [address]- 0609 Oct, [facility] [place] [facility] [address] [id number] [address]- 5208 Oct, [facility] [place] [facility] [address] [id number] [address]- 8377 Oct, [facility] [place] [facility] [address] [id number] [address]- 7877 Oct, [facility] [place] [facility] [address] [id number] [address]- 7446 17 Sep, 2014 [facility] [place] [facility] [address] [id number] [place] [address]- 1095 17 Sep, 2014 [facility] [place] [facility] [address] [id number] [place] [address]- 1119 15 Sep, 2014 [facility] [place] [facility] [address] [facility] [id number] [place] [address]- 5965 15 Sep, 2014 [facility] [place] [facility] [address] [id number] [place] [address]- 9632 Aug, [facility] [place] [facility] [address] [id number] [place] [address]- 8079 Aug, [facility] [place] [facility] [address] [id number] [place] [address]- 5292 Aug, [facility] [place] [facility] [address] [facility] [id number] [address]- 5583 Aug, [facility] [place] [facility] [address] [id number] [place] [address]- 8553 Aug, [facility] [place] [facility] [address] [facility] [id number] [place] [address]- 3966 Aug, [facility] [place] [facility] [address] [facility] [id number] [address]- 0614 Jul, [facility] [place] [facility] [address] [id number] [address]- 4515 29 Jul, 2014 [facility] [place] [facility] [address] [id number] [address]- 1779 24 Jul, 2014 [facility] [place] [facility] [address] [id number], [place] [address]- 7934 24 Jul, 2014 [facility] [place] [facility] [address] [facility] [id number] [address]- 1248 15 Jul, 2014 [facility] [place] [facility] [address] [facility] [id number] [address]- 2602 15 Jul, 2014 [facility] [place] [facility] [address] [id number] [place] [address]- 8026 27 Sep, 2013 [facility] [place] [facility] [address] [id number] [place] [address]- 8466 27 Jun, 2013 [facility] [place] [facility] [address] [id number] [place] [address] 2546 26 Jun, 2013 [facility] [place] [facility] [address] [id number] [place] [address] 2546 26 Jun, 2013 [facility] [place] [facility] [address] [id number] [place] [address] 2546 26 Jun, 2013 [facility] [place] [facility] [address] [id number] [place] [address]- 3018 26 Jun, 2013 [facility] [place] [facility] [address] [id number] [place] [address]- 8217 16 Jun, 2013 [facility] [place] [facility] [address] [id number] [place] [address]- 0916 16 Jun, 2013 [facility] [place] [facility] [address] [id number] [place] [address] 2541 16 Jun, 2013 [facility] [place] [facility] [address] [id number] [place] [address] 2545 16 Jun, 2013 [facility] [place] [facility] [address] [id number] [place] [address]- 5980 04 Jun, 2013 [facility] [place] [facility] [address] [id number] [place] [address]- 2540 May, [facility] [place] [facility] [address] [id number] [place] [address] 2540 May, [facility] [place] [facility] [address] [id number] [place] [address] 2546 May, [facility] [place] [facility] [address] [id number] [place] [address]- 2543 May, [facility] [place] [facility] [address] [id number] [place] [address]- 4334 May, [facility] [place] [facility] [address] [id number] [place] [address]- 3281 May, [facility] [place] [facility] [address] [id number] [place] [address]- 0900 May, [facility] [place] [facility] [address] [id number] [place] [address]- 1036 May, [facility] [place] [facility] [address] [id number] [place] [address]- 6419 May, [facility] [place] [facility] [address] [id number] [place] [address]- 2870 May, [facility] [place] [facility] [address] [id number] [place] [address]- 0583 Apr, [facility] [place] [facility] [address] [id number] [place] [address]- 7634 Apr, [facility] [place] [facility] [address] [id number] [place] [address]- 9318 Apr, [facility] [place] [facility] [address] [id number] [place] [address]- 0559 Apr, [facility] [place] [facility] [address] [id number] [place] [address]- 4106 Apr, [facility] [place] [facility] [address] [id number] [place] [address]- 5368 Apr, [facility] [place] [facility] [address] [id number] [place] [address]- 9366 Apr, [facility] [place] [facility] [address] [id number] [place] [address]- 5833 Apr, [facility] [place] [facility] [address] [id number] [place] [address]- 8948 Apr, [facility] [place] [facility] [address] [id number] [place] [address]- 4811 Apr, [facility] [place] [facility] [address] [id number] [place] [address]- 3204 26 Mar, 2014 [facility] [place] [facility] [address] [id number] [place] [address]- 8254 Mar, [facility] [place] [facility] [address] [id number] [place] [address]- 6272 25 Mar, 2014 [facility] [place] [facility] [address] [id number] [place] [address]- 1886 24 Mar, 2014 [facility] [place] [facility] [address] [id number] [place] [address]- 4210 20 Mar, 2014 [facility] [place] [facility] [address] [id number] [place] [address]- 3748 18 Mar, 2014 [facility] [place] [facility] [address] [id number] [place] [address]- 6300 18 Mar, 2014 [facility] [place] [facility] [address] [id number] [place] [address]- 6130 16 Mar, 2014 [facility] [place] [facility] [address] [id number] [place] [address]- 8397 16 Mar, 2014 [facility] [place] [facility] [address] [id number] [place] [address]- 3665 Mar, [facility] [place] [facility] [address] [facility] [id number] [place] [address]- 8970 13 Mar, 2014 [facility] [place] [facility] [address] [id number] [place] [address]- 7876 Mar, [facility] [place] [facility] [address] [id number] [place] [address]- 6865 11 Mar, 2014 [facility] [place] [facility] [address] [id number] [place] [address]- 8100 10 Mar, 2014 [facility] [place] [facility] [address] [id number] [place] [address]- 7224 09 Mar, 2014 [facility] [place] [facility] [address] [id number] [place] [address]- 3386 Mar, [facility] [place] [facility] [address] [id number] [place] [address]- 4541 Mar, [facility] [place] [facility] [address] [id number] [place] [address]- 6052 Mar, [facility] [place] [facility] [address] [id number] [place] [address]- 0992 Mar, [facility] [place] [facility] [address] [id number] [place] [address]- 5051 Mar, [facility] [place] [facility] [address] [id number] [place] [address]- 1029 February, [facility] [place] [facility] [address] [id number] [place] [address]- 7626 February, [facility] [place] [facility] [address] [id number] [place] [address]- 5962 February, [facility] [place] [facility] [address] [id number] [place] [address]- 5217 February, [facility] [place] [facility] [address] [id number] [place] [address]- 4298 February, [facility] [place] [facility] [address] [id number] [place] [address]- 8070 February, [facility] [place] [facility] [address] [id number] [place] [address]- 3205 February, [facility] [place] [facility] [address] [id number] [place] [address]- 6142 February, [facility] [place] [facility] [address] [id number] [place] [address]- 1118 February, [facility] [place] [facility] [address] [id number] [place] [address]- 8747 February, [facility] [place] [facility] [address] [id number] [place] [address]- 1035 February, [facility] [place] [facility] [address] [id number] [place] [address]- 5245 February, [facility] [place] [facility] [address] [id number] [place] [address]- 8852 February, [facility] [place] [facility] [address] [id number] [place] [address]- 8100 February, [facility] [place] [facility] [address] [id number] [place] [address]- 4368 February, [facility] [place] [facility] [address] [id number] [place] [address]- 6649 February, [facility] [place] [facility] [address] [id number] [place] [address]- 8105 February, [facility] [place] [facility] [address] [id number] [place] [address]- 7967 February, [facility] [place] [facility] [address] [id number] [place] [address]- 7686 February, [facility] [place] [facility] [address] [id number] [place] [address]- 4131 February, [facility] [place] [facility] [address] [id number] [place] [address]- 8879 February, [facility] [place] [facility] [address] [id number] [place] [address]- 4441 Jan, [facility] [place] [facility] [address] [id number] [place] [address]- 1970 Jan, [facility] [place] [facility] [address] [id number] [place] [address]- 2258 Jan, [facility] [place] [facility] [address] [id number] [place] [address]- 7223 Jan, [facility] [place] [facility] [address] [id number] [place] [address]- 8099 Jan, [facility] [place] [facility] [address] [id number] [place] [address]- 1121 Jan, [facility] [place] [facility] [address] [id number] [place] [address]- 1488 10 Jan, 2014 [facility] [place] [facility] [address] [id number] [place] [address]- 2036 10 Jan, 2014 [facility] [place] [facility] [address] [id number] [place] [address]- 4068 21 Dec, 2013 [facility] [place] [facility] [address] [id number] [place] [address]- 2030 20 Dec, 2013 [facility] [place] [facility] [address] [id number] [place] [address]- 2030 20 Dec, 2013 [facility] [place] [facility] [address] [id number] [place] [address]- 8202 19 Dec, 2013 [facility] [place] [facility] [address] [id number] [place] [address]- 0060 19 Dec, 2013 [facility] [place] [facility] [address] [id number] [place] [address]- 1343 15 Dec, 2013 [facility] [place] [facility] [address] [id number] [place] [address]- 9317 15 Dec, 2013 [facility] [place] [facility] [address] [id number] [place] [address]- 7050 11 Dec, 2013 [facility] [place] [facility] [address] [id number] [place] [address]- 0043 10 Dec, 2013 [facility] [place] [facility] [address] [id number] [place] [address]- 2730 10 Dec, 2013 [facility] [place] [facility] [address] [id number] [place] [address]- 9485 18 Nov, 2013 [facility] [place] [facility] [address] [id number] [place] [address]- 6776 17 Nov, 2013 [facility] [place] [facility] [address] [id number] [place] [address]- 2546 17 Nov, 2013 [facility] [place] [facility] [address] [id number] [place] [address]- 1097 Nov, [facility] [place] [facility] [address] [id number] [place] [address]- 8057 Nov, [facility] [place] [facility] [address] [id number] [place] [address]- 6678 Oct, [facility] [place] [facility] [address] [id number] [place] [address]- 1710 Oct, [facility] [place] [facility] [address] [id number] [place] [address]- 8613 Oct, [facility] [place] [facility] [address] [id number] [place] [address]- 0776 Sep, [facility] [place] [facility] [address] [id number] [place] [address]- 9237 Sep, [facility] [place] [facility] [address] [id number] [place] [address]- 7159 Sep, [facility] [place] [facility] [address] [id number] [address]- 2667 Sep, [facility] [place] [facility] [address] [id number] [address]- 5597 Aug, [facility] [place] [facility] [address] [id number] [place] [address]- 2525 Aug, [facility] [place] [facility] [address] [id number] [address]- 7841 Jul, [facility] [place] [facility] [address] [id number], [place] [address]- 6368 Jul, [facility] [place] [facility] [address] [id number], [place] [address] 2547 Jul, [facility] [place] [facility] [address] [id number], [place] [address]- 6904 Jul, [facility] [place] [facility] [address] [id number], [place] [address]- 2542 Jul, [facility] [place] [facility] [address] [id number] [place] [address]- 4736 25 Jun, 2012 [facility] [place] [facility] [address] [id number] [place] [address] 2546 25 Jun, 2012 [facility] [place] [facility] [address] [id number] [place] [address] 2546 19 Jun, 2013 [facility] [place] [facility] [address] [id number] [place] [address] 2541 18 Jun, 2013 [facility] [place] [facility] [address] [id number] [place] [address] 2548 16 Jun, 2013 [facility] [place] [facility] [address] [id number] [place] [address]- 3716 12 Jun, 2013 [facility] [place] [facility] [address] [id number] [place] [address]- 5314 11 Jun, 2013 [facility] [address] [id number] [place] [address]- 4735 30 May, 2013 [facility] [place] [facility] [address] [id number] [place] [address]- 1221 May, [facility] [place] [facility] [address] [id number] [place] [address]- 0935 Apr, [facility] [place] [facility] [address] [id number] [place] [address]- 2290 Apr, [facility] [place] [facility] [address] [id number] [place] [address]- 4029 Apr, [facility] [place] [facility] [address] [id number] [place] [address]- 7158 Mar, [facility] [place] [facility] [address] [id number] [place] [address]- 8016 Mar, [facility] [place] [facility] [address] [id number] [place] 9217 February, [facility] [place] [facility] [address] [id number] [place] [address]- 0901 February, [facility] [place] [facility] [address] [id number] [place] [address]- 6356 February, [facility] [address] [id number] [place] [address]- 8384 February, [facility] [address] [id number] [place] [address]- 5021 Jan, [facility] [address] [id number] [place] [address]- 4770 Jan, [facility] [address] [id number] [place] [address]- 4177 Jan, [facility] [address] [id number] [place] [address]- 8312 Dec, [facility] [address] [id number] [place] [address]- 8574 Dec, [facility] [address] [id number] [place] [address]- 4570 Dec, [facility] [address] [id number] [place] [address]- 3970 Dec, [facility] [address] [id number] [place] [address]- 2136 Nov, [facility] [address] [id number] [place] [address]- 0141 Nov, [facility] [address] [id number] [place] [address]- 9725 Oct, [facility] [address] [id number] [place] [address]- 1860 Oct, [facility] [address] [id number] [place] [address]- 2992 Oct, [facility] [address] [id number] [place] [address]- 3583 Oct, [facility] [address] [id number] [place] [address]- 0506 Aug, [facility] [place] [facility] [address] [id number] [place] [address]- 1568 Aug, [facility] [place] [facility] [address] [id number] [place] [address]- 4014 Jun, [facility] [place] [facility] [address] [id number] [place] [address]- 8678 May, [facility] [place] [facility] [address] [id number] [place] [address]- 8545 May, [facility] [place] [facility] [address] [id number] [place] [address]- 3863 Apr, [facility] [place] [facility] [address] [id number] [place] [address] Apr, [facility] [place] [facility] [address] [id number] [place] [address] Apr, [facility] [place] [facility] [address] [id number] [place] [address]69 Mar, [facility] [place] [facility] [address] [id number] [place] [address] Mar, [facility] [place] [facility] [address] [id number] [place] [address] Mar, [facility] [place] [facility] [address] [id number] [place] [address] Mar, [facility] [place] [facility] [address] [id number] [place] [address] Mar, [facility] [place] [facility] [address] [id number] [place] [address] February, [facility] [place] [facility] [address] [id number] [place] [address] February, [facility] [place] [facility] [address] [id number] [place] [address] February, [facility] [place] [facility] [address] [id number] [place] [address]- [address] 16 Feb, 2012 [facility] [address] [id number] [place] [address] February, [facility] [place] [facility] [address] [id number] [place] [address] February, [facility] [address] [id number] [place] [address]646 February, [facility] [place] [facility] [address] [id number] [place] [address] 269[address] Jan, [facility] [place] [facility] [address] [id number] [place] [address]144 18 Jan, 2012 [facility] [place] [facility] [address] [id number] [place] [address]71 17 Jan, 2012 [facility] [address] [id number] [place] [address] 13 Jan, 2012 [facility] [address] [id number] [place] [address] 10 Jan, 2012 [facility] [address] [id number] [place] [address]- 8585 04 Jan, 2012 [facility] [facility] [address] [id number] [place] [address]- 6196 30 Dec, 2011 [facility] [address] [id number] [place] [address] 24 Dec, 2011 [facility] [facility] [address] [id number] [place] [address]285 20 Dec, 2011 [facility] [place] [facility] [address] [id number] [place] [address] 3606 13 Dec, 2011 [facility] [place] [facility] [address] [id number] [place] [address] 06 Dec, 2011 [facility] [place] [facility] [address] [id number] [place] [address] 69[address] Nov, [facility] [place] [facility] [address] [id number] [place] [address] 76[address] Nov, [facility] [place] [facility] [address] [id number] [place] [address]- [address]076 Nov, [facility] [place] [facility] [address] [id number] [place] [address]- [address]496 14 Nov, 2011 [facility] [place] [facility] [address] [id number] [place] [address] 3560 Nov, [facility] [place] [facility] [address] [id number] [place] [address]- 8475 Nov, [facility] [place] [facility] [address] [id number] [place] [address]- 8660 Oct, [facility] [place] [facility] [address] [id number] [place] [address]- 1726 Oct, [facility] [place] [facility] [address] [id number] [place] [address] Oct, [facility] [place] [facility] [address] [id number] [place] [address] 228[address] Oct, [facility] [place] [facility] [address] [id number] [place] [address]- 3765 Oct, [facility] [place] [facility] [address] [id number] [place] [address]- 70[address] Sep, [facility] [place] [facility] [address] [id number] [place] [address]- [address] Sep, [facility] [place] [facility] [address] [id number] [place] [address]- [address] Sep, [facility] [place] [facility] [address] [id number] [place] [address]- 7787 Sep, [facility] [place] [facility] [address] [id number] [place] [address]- 7415 Sep, [facility] [place] [facility] [address] [id number] [place] [address]40 13 Sep, 2011 [facility] [address] [id number] [place] [address]- 250[address] Sep, [facility] [place] [facility] [address] [id number] [place] [address]- 7374 Sep, [facility] [place] [facility] [address] [id number] [place] [address]- 9537 Sep, [facility] [place] [facility] [address] [id number] [place] [address]- 480[address] Aug, [facility] [place] [facility] [address] [id number] [place] [address]- 7144 Aug, [facility] [place] [facility] [address] [id number] [place] [address]- 2904 Aug, [facility] [place] [facility] [address] [id number] [place] [address]- 1823 Aug, [facility] [place] [facility] [address] [id number] [place] [address]- 0332 Aug, [facility] [place] [facility] [address] [id number] [place] [address]- 9226 Aug, [facility] [address] [id number] [place] [address]- 6913 Aug, [facility] [facility] [address] [id number] [place] [address]- 58[address] Aug, [facility] [place] [facility] [address] [id number] [place] [address]- 4780 Aug, [facility] [place] [facility] [address] [id number] [place] [address]- 4041 Aug, [facility] [place] [facility] [address] [id number] [place] [address]- 5733 Aug, [facility] [place] [facility] [address] [id number] [place] [address]- 8186 Aug, [facility] [place] [facility] [address] [id number] [place] [address]- 8845 Jul, [facility] [place] [facility] [address] [id number] [place] [address]- 1023 Jul, [facility] [place] [facility] [address] [id number] [place] [address]- 8977 Jul, [facility] [place] [facility] [address] [id number] [place] [address]- 2680 Jul, [facility] [place] [facility] [address] [id number] [place] [address]- 5725 Jul, [facility] [place] [facility] [address] [id number] [place] [address]- 4834 Jul, [facility] [place] [facility] [address] [id number] [place] [address]- 8856 Jul, [facility] [place] [facility] [address] [id number] [place] [address]- 2384 Jul, [facility] [place] [facility] [address] [id number] [place] [address]- 5400 Jul, [facility] [place] [facility] [address] [id number] [place] [address]- 5672 Jul, [facility] [place] [facility] [address] [address] [id number] [place] [address] Nov, [facility] [place] [facility] [address] [id number] [address] Aug, [facility] [place] [facility] [address] [id number] [place] [address] Aug, [facility] [place] [facility] [address] [id number] [place] [address] Aug, [facility] [place] [facility] [address] [id number] [place] [address] Aug, [facility] [place] [facility] [address] [facility] [id number] [place], [place] [address] Jul, IMMUNIZATIONS No Known Immunizations SOCIAL HISTORY [facility]10[facility]2008 Hospitalization History [facility]- cutting/SI 05/04/18-05/09/18
[2018-11-13] MEDS ORDERED: NS IV 1000 ML 1,000 ML IV ONE (01:40)
[2018-11-13] MEDS ORDERED: KETOROLAC 30 MG/ML VIAL IVP ONE (01:45)
[2018-11-13] MEDS ORDERED: PROMETHAZINE INJ 25 MG/ML (PHENERGAN) AMP IVP ONE (01:45)
[2018-11-13 02:28] LABS: BASOPHILS # (AUTO) 0.1 10^3/uL (0.0-0.1); BASOPHILS % (AUTO) 1 % (0-10); EOSINOPHILS # (AUTO) 0.3 10^3/uL (0.0-0.3); EOSINOPHILS % (AUTO) 3 % (0-10); HEMATOCRIT 42 % (35-52); HEMOGLOBIN 14.5 G/DL (11.5-16.0); LYMPHOCYTES # (AUTO) 4.4 X 10^3 (1.0-4.0); LYMPHOCYTES % (AUTO) 45 % (12-44); MEAN CORPUSCULAR HEMOGLOBIN 29 PG (25-34); MEAN CORPUSCULAR HGB CONC 35 G/DL (32-36); MEAN CORPUSCULAR VOLUME 84 FL (80-99); MEAN PLATELET VOLUME 10.7 FL (7.4-10.4); MONOCYTES # (AUTO) 0.7 X 10^3 (0.0-1.0); MONOCYTES % (AUTO) 8 % (0-12); NEUTROPHILS # (AUTO) 4.4 X 10^3 (1.8-7.8); NEUTROPHILS % (AUTO) 44 % (42-75); PLATELET COUNT 266 10^3/uL (130-400); RED BLOOD COUNT 4.99 10^6/uL (4.35-5.85); RED CELL DISTRIBUTION WIDTH 13.2 % (10.0-14.5); WHITE BLOOD COUNT 9.9 10^3/uL (4.3-11.0)
[2018-11-13] MEDS ORDERED: diphenhydrAMINE 50 MG/ML INJ (BENADRYL) ONE (02:39)
[2018-11-13] MEDS ORDERED: diphenhydrAMINE 50 MG/ML INJ (BENADRYL) IVP ONE (02:45)
[2018-11-13 02:47] LABS: ALANINE AMINOTRANSFERASE 16 U/L (0-55); ALBUMIN 4.1 GM/DL (3.2-4.5); ALKALINE PHOSPHATASE 98 U/L (40-136); BILIRUBIN,TOTAL 0.2 MG/DL (0.1-1.0); BUN/CREATININE RATIO 24; CARBON DIOXIDE 22 MMOL/L (21-32); CHLORIDE 107 MMOL/L (98-107); CREATININE SERUM 0.74 MG/DL (0.60-1.30); GFR ESTIMATED > 60; GLUCOSE 79 MG/DL (70-105); POTASSIUM 3.7 MMOL/L (3.6-5.0); SODIUM 138 MMOL/L (135-145); TOTAL PROTEIN 6.9 GM/DL (6.4-8.2)
[2018-11-13 03:07] LABS: FREE T4 (FREE THYROXINE) 0.85 NG/DL (0.70-1.48)
[2018-11-13] MEDS ORDERED: ORPHENADRINE 60 MG/2 ML (NORFLEX) AMP IV ONE (03:30)
[2018-11-13] MEDS ORDERED: methylPREDNISolone 125 MG (Solu-MEDROL) VIAL IVP ONE (03:30)
[2018-11-13] MEDS ORDERED: ONDA4TAB11 PO (05:09)
--- NOTE | 2018-11-13 05:09 | ED Headache ---
General Chief Complaint: Head/Cervical Problems Stated Complaint: MIGRAINE Nursing Triage Note: Pt arrived by private vehicle for cc of migraine. Pt has had a migraine since 1500, but have been going on (on and off) for the past two weeks. Pt has been taking glcdoqeijf-pxygconh-uhd 50-325-40. Pt stated pain is an 8, and feels like someone is punching the back of her head. Nursing Sepsis Screen: No Definite Risk Source: patient Exam Limitations: no limitations Allergies and Home Medications Allergies Coded Allergies: amoxicillin (Unverified Allergy, Severe, sob, rash, 11/01/10) Penicillins (Verified Adverse Reaction, Severe, RASH, 12/14/05) cefuroxime (Verified Adverse Reaction, Severe, RASH, 12/14/05) clarithromycin (Unverified Adverse Reaction, Mild, nausea and dizziness, ) Home Medications Albuterol Sulfate 18 Gm Hfa.aer.ad, 2 PUFF IH Q6H PRN for SHORTNESS OF BREATH, ( Reported) Aripiprazole 2 Mg Tablet, 2 MG PO DAILY, (Reported) Guanfacine HCl 1 Mg Tab.er.24h, 1 MG PO HS, (Reported) Insulin Aspart 300 Units/3 Ml Solution, 25 UNITS SQ AC, (Reported) Insulin Detemir 100 Unit/1 Ml Insuln.pen, 67 UNITS SQ HS, (Reported) Lorazepam 1 Mg Tablet, 1 MG PO DAILY PRN for ANXIETY, (Reported) Metformin HCl 1,000 Mg Tablet, 1,000 MG PO BID, (Reported) Quetiapine Fumarate 200 Mg Tablet, 200 MG PO HS, (Reported) Sulfamethoxazole/Trimethoprim 1 Each Tablet, 1 EACH PO BID Prescribed by: DARRICK VERDUZCO on 05/03/18 0444 Topiramate 100 Mg Tablet, 150 MG PO BID, (Reported) TAKES 1 & 1/2 OF A (100 MG) TABLET Past Dvnrgmi-Igscwt-Disoqb Hx Patient Social History Alcohol Use: Denies Use Number of Drinks Today: AA Alcohol Beverage of Choice: Beer Recreational Drug Use: Yes (SMOKE 5 CIGARETTES PER DAY) Type Used: Cigarettes 2nd Hand Smoke Exposure: Yes Recent Foreign Travel: No Contact w/Someone Who Travel: No Recent Infectious Disease Expo: No Recent Hopitalizations: No Physical Abuse: No Sexual Abuse: No Mistreated: No Fear: No Immunizations Up To Date Tetanus Booster (TDap): Less than 5yrs Date of Pneumonia Vaccine: Oct 24, 2010 Date of Influenza Vaccine: Aug 30, 2015 Seasonal Allergies Seasonal Allergies: Yes Past Medical History Surgeries: Yes (EGD, RIGHT HIP SURGERY CHILD FOR UNKNOWN REASON) Appendectomy, Eye Surgery, Gallbladder, Orthopedic Respiratory: No Cardiac: No Neurological: Yes Headaches /Migraines Last Menstrual Period: Nov 07, 2018 Reproductive Disorders: No Female Reproductive Disorders: Denies Sexually Transmitted Disease: No HIV/AIDS: No Genitourinary: Yes UTI-Chronic Gastrointestinal: Yes Gastroesophageal Reflux Musculoskeletal: No Endocrine: Yes (INSULIN + ORAL MEDICATIONS; OBESITY) Diabetes, Insulin dep, Hypothyroidsim HEENT: No Loss of Vision: Bilateral Hearing Impairment: Denies Cancer: No Psychosocial: Yes (EXTENSIVE PSYCH ISSUES) Suicide Attempts, Bipolar Integumentary: No Blood Disorders: No Family Medical History Family history: Allergy 03 MOTHER 09 BROTHER Family history: Arthritis 03 MOTHER Family history: Asthma 09 BROTHER 09 SISTER Family history: Cardiovascular disease 03 FATHER ("TAKES MEDICATION FOR HIS HEART") Family history: Diabetes mellitus 03 FATHER Family history: Hypertension 03 MOTHER Hypercholesterolemia 03 MOTHER Psychosocial problem 09 SISTER (DEPRESSION) Psychotic disorder 09 SISTER (ANXIETY) No Family History of: Abdominal aortic aneurysm Gratiot's disease Alcoholism Aphasia Cancer Cancer of colon Cataract Chest pain Congenital heart disease Congestive heart failure Cystic fibrosis Dementia Dysphagia Family history: Alzheimer's disease Family history: Breast disease Family history: Coronary thrombosis Family history: Gastrointestinal disease Family history: Glaucoma Family history: Osteoporosis Family history: Thyroid disorder Headache Hearing loss Heart disease Hereditary disease History of - anemia History of - disorder History of - respiratory disease History of drug abuse Human immunodeficiency virus (HIV) seropositivity Infertile Kidney disease Malignant neoplasm of lung Myocardial infarction Parkinson's disease Prostate cancer Seizure disorder Stroke Tuberculosis Visual impairment Physical Exam Vital Signs Vital Signs - First Documented 11/13/18 01:17 Temp 97.3 Pulse 92 Resp 18 B/P (MAP) 139/95 (110) Pulse Ox 98 O2 Delivery Room Air Capillary Refill : Less Than 3 Seconds Height, Weight, BMI Height: 5'6.00" Weight: 199lbs. 0oz. 90.816009au; 32.1 BMI Method:Stated Progress/Results/Core Measures Results/Orders Lab Results Laboratory Tests Test 11/13/18 02:22 Range/Units White Blood Count 9.9 4.3-11.0 10^3/uL Red Blood Count 4.99 4.35-5.85 10^6/uL Hemoglobin 14.5 11.5-16.0 G/DL Hematocrit 42 35-52 % Mean Corpuscular Volume 84 80-99 FL Mean Corpuscular Hemoglobin 29 25-34 PG Mean Corpuscular Hemoglobin Concent 35 32-36 G/DL Red Cell Distribution Width 13.2 10.0-14.5 % Platelet Count 266 130-400 10^3/uL Mean Platelet Volume 10.7 H 7.4-10.4 FL Neutrophils (%) (Auto) 44 42-75 % Lymphocytes (%) (Auto) 45 H 12-44 % Monocytes (%) (Auto) 8 0-12 % Eosinophils (%) (Auto) 3 0-10 % Basophils (%) (Auto) 1 0-10 % Neutrophils # (Auto) 4.4 1.8-7.8 X 10^3 Lymphocytes # (Auto) 4.4 H 1.0-4.0 X 10^3 Monocytes # (Auto) 0.7 0.0-1.0 X 10^3 Eosinophils # (Auto) 0.3 0.0-0.3 10^3/uL Basophils # (Auto) 0.1 0.0-0.1 10^3/uL Sodium Level 138 135-145 MMOL/L Potassium Level 3.7 3.6-5.0 MMOL/L Chloride Level 107 98-107 MMOL/L Carbon Dioxide Level 22 21-32 MMOL/L Anion Gap 9 5-14 MMOL/L Blood Urea Nitrogen 18 7-18 MG/DL Creatinine 0.74 0.60-1.30 MG/DL Estimat Glomerular Filtration Rate > 60 BUN/Creatinine Ratio 24 Glucose Level 79 70-105 MG/DL Calcium Level 10.0 8.5-10.1 MG/DL Corrected Calcium 9.9 8.5-10.1 MG/DL Magnesium Level 2.0 1.8-2.4 MG/DL Total Bilirubin 0.2 0.1-1.0 MG/DL Aspartate Amino Transf (AST/SGOT) 14 5-34 U/L Alanine Aminotransferase (ALT/SGPT) 16 0-55 U/L Alkaline Phosphatase 98 40-136 U/L Total Protein 6.9 6.4-8.2 GM/DL Albumin 4.1 3.2-4.5 GM/DL Thyroid Stimulating Hormone (TSH) 2.28 0.35-4.94 UIU/ML Free Thyroxine 0.85 0.70-1.48 NG/DL My Orders Orders - JOHN LEE MD Saline Lock/Iv-Start (11/13/18 01:40) Ns Iv 1000 Ml (Sodium Chloride 0.9%) (11/13/18 01:40) Cbc With Automated Diff (11/13/18 01:40) Comprehensive Metabolic Panel (11/13/18 01:40) Magnesium (11/13/18 01:40) Thyroid Stimulating Hormone (11/13/18 01:40) Free T4 (Free Thyroxine) (11/13/18 01:40) Vitamin D 25-Hydroxy (11/13/18 01:40) Ketorolac Injection (Toradol Injection) (11/13/18 01:45) Promethazine Injection (Phenergan Injec (11/13/18 01:45) Diphenhydramine Injection (Benadryl Inje (11/13/18 02:45) Diphenhydramine Injection (Benadryl Inje (11/13/18 02:39) Methylprednisolone Sod Succ (Solu-Medrol (11/13/18 03:30) Orphenadrine Injection (Norflex Injectio (11/13/18 03:30) Medications Given in ED Current Medications Medications Dose Ordered Sig/Kiarra Route Start Time Stop Time Status Last Admin Dose Admin Diphenhydramine HCl 25 mg ONCE ONCE IVP 11/13/18 02:45 11/13/18 02:46 DC 11/13/18 03:37 25 MG Ketorolac Tromethamine 15 mg ONCE ONCE IVP 11/13/18 01:45 11/13/18 01:46 DC 11/13/18 02:22 15 MG Methylprednisolone Sodium Succinate 62.5 mg ONCE ONCE IVP 11/13/18 03:30 11/13/18 03:31 DC 11/13/18 03:35 62.5 MG Orphenadrine Citrate 60 mg ONCE ONCE IV 11/13/18 03:30 11/13/18 03:31 DC 11/13/18 03:35 60 MG Promethazine HCl 25 mg ONCE ONCE IVP 11/13/18 01:45 11/13/18 01:46 DC 11/13/18 02:21 25 MG Sodium Chloride 1,000 ml @ 0 mls/hr Q0M ONCE IV 11/13/18 01:40 11/13/18 01:43 DC 11/13/18 02:21 1,000 MLS/HR Vital Signs/I&O 11/13/18 01:17 Temp 97.3 Pulse 92 Resp 18 B/P (MAP) 139/95 (110) Pulse Ox 98 O2 Delivery Room Air Blood Pressure Mean: 110 Departure Impression Primary Impression: Migraine headache Qualified Codes: G43.909 - Migraine, unspecified, not intractable, without status migrainosus Disposition: HOME, SELF-CARE Condition: Improved Departure-Patient Inst. Decision time for Depature: 05:07 Referrals: OLGA LUCERO MD (PCP/Family) Primary Care Physician Patient Instructions: Migraine Headache (DC) Add. Discharge Instructions: For future headaches you may take ibuprofen up to 600 mg every 6 hours and/or Tylenol (acetaminophen) up to 1000 mg every 6 hours as needed. Try to rest in a quiet, calm, dark environment as long as you can this morning. Return to care if symptoms are worsening again. Take Zofran as prescribed for nausea and vomiting. Follow-up with your primary care provider as soon as possible. All discharge instructions reviewed with patient and/or family. Voiced understanding. Scripts Ondansetron (Ondansetron Odt) 4 Mg Tab.rapdis 4 MG PO Q4H PRN for NAUSEA/VOMITING, #10 TAB Prov: JOHN LEE MD 11/13/18 JOHN LEE MD Nov 13, 2018 05:09
[2018-11-13 05:15] VITALS: BP 125/88
== END 2018-11-13 05:15 | disposition home or self-care (01) ==
LOC: EDUNIT# 01:01 → ER 01:02
DX: G43.909 Migraine, unspecified, not intractable, without status migrainosus (principal); K21.9 Gastro-esophageal reflux disease without esophagitis; E11.9 Type 2 diabetes mellitus without complications; E03.9 Hypothyroidism, unspecified; E66.9 Obesity, unspecified; F31.9 Bipolar disorder, unspecified; F17.210 Nicotine dependence, cigarettes, uncomplicated; Z88.0 Allergy status to penicillin; Z91.5 Personal history of self-harm; Z82.49 Family history of ischemic heart disease and other diseases of the circulatory system; Z68.32 Body mass index [BMI] 32.0-32.9, adult; Z88.8 Allergy status to other drugs, medicaments and biological substances; Z87.440 Personal history of urinary (tract) infections; Z79.51 Long term (current) use of inhaled steroids; Z79.4 Long term (current) use of insulin; Z98.890 Other specified postprocedural states; Z90.49 Acquired absence of other specified parts of digestive tract
CPT/HCPCS: 36415; 80053; 82306; 83735; 84439; 84443; 85025

== ENCOUNTER 2019-03-08 01:13 | Emergency (ER) | payer MEDICARE, MEDICAID ==
[~2019-03-08] VITALS: Ht 167.6 cm; Wt 87.1 kg
[~2019-03-08 01:13] MED LIST changes: +ONDA4TAB11 PO
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
[2019-03-08 04:30] VITALS: BP 117/80
--- NOTE | 2019-03-08 05:59 | Diagnostic Imaging Report ---
INDICATION: Pain status post injury. COMPARISON: None. FINDINGS: 3 views of the left foot demonstrate no acute fracture or dislocation. There are no focal osseous lesions. There is no soft tissue swelling. Joint spaces are well maintained. No radiopaque foreign bodies are seen. IMPRESSION: No acute fractures or dislocations of the left foot. Dictated by: Dictated on workstation # [id number]
== END 2019-03-08 04:30 | disposition home or self-care (01) ==
LOC: EDUNIT# 01:13 → ER 01:15
DX: S90.32XA Contusion of left foot, initial encounter (principal); G43.909 Migraine, unspecified, not intractable, without status migrainosus; E66.9 Obesity, unspecified; E11.9 Type 2 diabetes mellitus without complications; E03.9 Hypothyroidism, unspecified; F31.9 Bipolar disorder, unspecified; K21.9 Gastro-esophageal reflux disease without esophagitis; F17.210 Nicotine dependence, cigarettes, uncomplicated; Z90.49 Acquired absence of other specified parts of digestive tract; Z88.0 Allergy status to penicillin; Z91.5 Personal history of self-harm; Z82.49 Family history of ischemic heart disease and other diseases of the circulatory system; Z87.440 Personal history of urinary (tract) infections; Z68.31 Body mass index [BMI] 31.0-31.9, adult; Z88.1 Allergy status to other antibiotic agents; Z88.8 Allergy status to other drugs, medicaments and biological substances; Z79.4 Long term (current) use of insulin; V18.3XXA Person boarding or alighting a pedal cycle injured in noncollision transport accident, initial encounter
CPT/HCPCS: 73630

== ENCOUNTER → 2019-07-05 | Outpatient (CLI) | payer MEDICARE, MEDICAID ==
--- NOTE | 2019-07-05 11:02 | Diagnostic Imaging Report ---
PROCEDURE: CT chest without contrast. TECHNIQUE: Multiple contiguous axial images were obtained through the chest without the use of intravenous contrast. Auto Exposure Controls were utilized during the CT exam to meet ALARA standards for radiation dose reduction. INDICATION: Cough and dyspnea. FINDINGS: No comparison available. The lungs are clear without edema or pneumonia. No pleural effusion or pneumothorax. No suspicious nodules. Heart size is normal. No pericardial effusion. Aorta is normal in caliber. There is no axillary, supraclavicular or mediastinal lymphadenopathy. Upper abdomen reveals changes of cholecystectomy. There are no suspicious osseous lesions. IMPRESSION: 1. Clear lungs. Dictated by: Dictated on workstation # [id number]
== END ==
LOC: RAD 08:17
PROVIDERS: ATTEND Nurse Practitioner Family
DX: J30.9 Allergic rhinitis, unspecified (principal); Z72.0 Tobacco use
CPT/HCPCS: 71250

== ENCOUNTER → 2019-08-06 | Outpatient (CLI) | payer MEDICARE, MEDICAID ==
[~2019-08-06] MED LIST changes: +RT-ALBUTEROL SULF 2.5 MG/3 ML PRE-MIX VIAL INH ONE; +RT-ALBUTEROL SULF 2.5 MG/3 ML PRE-MIX VIAL ONE
== END ==
LOC: RT 08:10
PROVIDERS: ATTEND Nurse Practitioner Family
DX: J30.9 Allergic rhinitis, unspecified (principal); Z72.0 Tobacco use
CPT/HCPCS: 94060; 94726; 94729

== ENCOUNTER → 2019-08-09 | Outpatient (CLI) | payer MEDICARE, MEDICAID ==
[~2019-08-09] MED LIST changes: -RT-ALBUTEROL SULF 2.5 MG/3 ML PRE-MIX VIAL INH ONE; -RT-ALBUTEROL SULF 2.5 MG/3 ML PRE-MIX VIAL ONE
[2019-08-09 11:43] LABS: CALCIUM 9.3 MG/DL (8.5-10.1); CREATININE SERUM 1.23 MG/DL (0.60-1.30); POTASSIUM 4.2 MMOL/L (3.6-5.0)
== END ==
LOC: LAB 11:13
PROVIDERS: ATTEND Physician Assistant
DX: E11.65 Type 2 diabetes mellitus with hyperglycemia (principal); Z79.4 Long term (current) use of insulin
CPT/HCPCS: 36415; 80048

== ENCOUNTER → 2019-12-10 | Outpatient (CLI) | payer MEDICARE, MEDICAID ==
[~2019-12-10] MED LIST changes: -ARIP2TAB11 PO; +ARIP2TAB20 PO; +QUET200T29 PO; -QUET200T57 PO
[2019-12-10 14:04] LABS: BASOPHILS % (AUTO) 0 % (0-10); EOSINOPHILS # (AUTO) 0.2 10^3/uL (0.0-0.3); EOSINOPHILS % (AUTO) 2 % (0-10); HEMATOCRIT 39 % (35-52); HEMOGLOBIN 13.6 G/DL (11.5-16.0); LYMPHOCYTES # (AUTO) 2.8 X 10^3 (1.0-4.0); LYMPHOCYTES % (AUTO) 28 % (12-44); MEAN CORPUSCULAR HEMOGLOBIN 29 PG (25-34); MEAN CORPUSCULAR HGB CONC 35 G/DL (32-36); MEAN CORPUSCULAR VOLUME 84 FL (80-99); MEAN PLATELET VOLUME 10.9 FL (7.4-10.4); MONOCYTES # (AUTO) 0.6 X 10^3 (0.0-1.0); MONOCYTES % (AUTO) 6 % (0-12); NEUTROPHILS # (AUTO) 6.2 X 10^3 (1.8-7.8); NEUTROPHILS % (AUTO) 63 % (42-75); PLATELET COUNT 250 10^3/uL (130-400); RED CELL DISTRIBUTION WIDTH 13.2 % (10.0-14.5); WHITE BLOOD COUNT 9.8 10^3/uL (4.3-11.0)
[2019-12-10 14:32] LABS: ERYTHROCYTE SEDIMENTATION RATE 14 MM/HR (0-20)
== END ==
LOC: LAB 13:28
PROVIDERS: ATTEND Optometrist
DX: H20.00 Unspecified acute and subacute iridocyclitis (principal)
CPT/HCPCS: 36415; 82164; 85025; 85652; 86038; 86039; 86618; 86812

== ENCOUNTER 2020-04-03 23:51 | Observation (INO) | payer MEDICARE, MEDICAID ==
[~2020-04-03] VITALS: Ht 165 cm; Wt 84.9 kg
[~2020-04-03 23:51] MED LIST changes: +ACHYD1T PO; -HYDR-3820 PO; -TRAZ-190; +TRAZ-227
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
[2020-04-04] MEDS ORDERED: ATOM40CA6 (00:17)
[2020-04-04] MEDS ORDERED: PRAZ1CAP2 (00:17)
[2020-04-04] MEDS ORDERED: PANT40TA3 (00:17)
[2020-04-04] MEDS ORDERED: PALI6TAB6 (00:17)
[2020-04-04] MEDS ORDERED: NS IV 1000 ML 1,000 ML IV SCH ×2 (00:31→01:13)
[2020-04-04 00:34] LABS: BILIRUBIN,URINE NEGATIVE (NEGATIVE); CLARITY,URINE CLEAR; COLOR,URINE YELLOW; GLUCOSE, URINE (UA) 3+ (NEGATIVE); KETONES,URINE 1+ (NEGATIVE); LEUKOCYTE ESTERASE ,URINE NEGATIVE (NEGATIVE); NITRITE,URINE NEGATIVE (NEGATIVE); PROTEIN,URINE NEGATIVE (NEGATIVE)
[2020-04-04 00:36] LABS: BASOPHILS % (AUTO) 0 % (0-10); EOSINOPHILS # (AUTO) 0.3 10^3/uL (0.0-0.3); EOSINOPHILS % (AUTO) 3 % (0-10); HEMATOCRIT 40 % (35-52); HEMOGLOBIN 14.8 G/DL (11.5-16.0); LYMPHOCYTES # (AUTO) 3.3 X 10^3 (1.0-4.0); LYMPHOCYTES % (AUTO) 32 % (12-44); MEAN CORPUSCULAR HEMOGLOBIN 30 PG (25-34); MEAN CORPUSCULAR HGB CONC 37 G/DL (32-36); MEAN CORPUSCULAR VOLUME 82 FL (80-99); MEAN PLATELET VOLUME 10.3 FL (7.4-10.4); MONOCYTES # (AUTO) 0.9 X 10^3 (0.0-1.0); MONOCYTES % (AUTO) 9 % (0-12); NEUTROPHILS # (AUTO) 5.8 X 10^3 (1.8-7.8); NEUTROPHILS % (AUTO) 56 % (42-75); PLATELET COUNT 211 10^3/uL (130-400); RED CELL DISTRIBUTION WIDTH 12.7 % (10.0-14.5); WHITE BLOOD COUNT 10.3 10^3/uL (4.3-11.0)
[2020-04-04 00:42] LABS: CHLORIDE 101 MMOL/L (98-107); POTASSIUM 3.5 MMOL/L (3.6-5.0); SODIUM 134 MMOL/L (135-145)
[2020-04-04 00:43] LABS: ALBUMIN 4.2 GM/DL (3.2-4.5)
[2020-04-04 00:44] LABS: CALCIUM 9.6 MG/DL (8.5-10.1)
[2020-04-04 00:45] LABS: BACTERIA,URINE NEGATIVE /HPF
[2020-04-04 00:46] LABS: CARBON DIOXIDE 21 MMOL/L (21-32)
[2020-04-04 00:47] LABS: BILIRUBIN,TOTAL 0.4 MG/DL (0.1-1.0)
[2020-04-04 00:49] LABS: ALKALINE PHOSPHATASE 171 U/L (40-136); CREATININE SERUM 0.87 MG/DL (0.60-1.30); GFR ESTIMATED > 60
[2020-04-04 00:50] LABS: BUN/CREATININE RATIO 10
[2020-04-04 00:52] LABS: AMPHETAMINE SCREEN, URINE NEGATIVE (NEGATIVE); BARBITURATE SCREEN URINE NEGATIVE (NEGATIVE); BENZODIAZEPINES SCREEN URINE NEGATIVE (NEGATIVE); CANNABINOID SCREEN, URINE NEGATIVE (NEGATIVE); COCAINE SCREEN URINE NEGATIVE (NEGATIVE); METHADONE STAT NEGATIVE (NEGATIVE); METHAMPHETAMINE SCREEN URINE S NEGATIVE (NEGATIVE); OPIATE SCREEN URINE NEGATIVE (NEGATIVE); OXYCODONE STAT NEGATIVE (NEGATIVE); PROPOXYPHENE STAT NEGATIVE (NEGATIVE); SALICYLATE < 5.0 MG/DL (5.0-20.0); TRICYCLIC ANTIDEPRESSANTS SCRE NEGATIVE (NEGATIVE)
[2020-04-04 01:11] LABS: ACETAMINOPHEN < 10 UG/ML (10-30); GLUCOSE 423 MG/DL (70-105)
[2020-04-04 01:12] LABS: TSH (THYROID ANALYZER) 1.18 UIU/ML (0.35-4.94)
[2020-04-04] MEDS ORDERED: inSUlin (REGULAR) HUMAN 1 UNIT/0.01 ML (CHARGE PER UNIT) IV ONE (01:15)
[2020-04-04 01:26] LABS: ALANINE AMINOTRANSFERASE 28 U/L (0-55)
--- OUTSIDE RECORDS SUMMARY | 2020-04-04 01:40 | XMS REPORT ---
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 Spondylosis; Low back pain 04-03-2020 - Episodic Completed GAURANG STANTON DO [facility] Via intervertebral Translations: Layla disc [ Hospital - disorders; RADICULOPATHY, [place] other back LUMBAR REGION] (59425) problems (22 sources.) Mood disorders Major no information no information JOHN Not Available (23 sources.) depressive JESUS , (95972) disorder, single episode, unspecified Other Nonspecific Episodic Completed OLGA SEGLIE , [facility] V ia screening for (abnormal) MD Rich suspected findings on Hospital - conditions radiological [place] (not mental and other (15686) disorders or examination of infectious biliary tract disease) (3 sources.) External Other external no information no information GAURANG Roe DO Not Available Injury - cause status (21966) Unspecified (2 sources.) Other female Other 04-03-2020 - Episodic Completed OLGA SEGL IE , [facility] Via genital specified MD [facility] disorders (7 noninflammator Hospital - sources.) y disorders of [place] cervix uteri (22520) Residual Other no information no information JOHN Not Available codes; specified JESUS , (17500) unclassified postprocedural MD (3 sources.) states Other Pain in right 04-03-2020 - Episodic Completed OLGA SEG LIE , [facility] Via non-traumatic hip MD [facility] joint Hospital - disorders (7 [place] sources.) (20061) Residual Personal Episodic Completed OLGA SEGLIE , [facility] Via codes; history of MD Rich unclassified noncompliance Hospital - (1 source.) with medical [place] treatment, (54590) presenting hazards to health Genitourinary Personal 04-03-2020 - Episodic Completed IVORY ROBLERO Not Available symptoms and history of (36816) ill-defined urinary conditions (21 (tract) sources.) infections Other Pruritus, 04-03-2020 - Episodic Completed TANYA GONZALEZ [facility] inflammatory unspecified [facility] condition of Hospital skin (14 [place] sources.) (03984) Blindness and Psychophysical Episodic Completed GAURANG STANTON DO [facility] vision defects visual [facility] (4 sources.) disturbances [facility] (87495) Disorders of Pure no information no information IVORYUS JUAREZ R Not Available lipid hypercholester (73601) metabolism (5 olemia, sources.) unspecified Suicide and Suicidal 04-03-2020 - Episodic Completed DARRICK Martinez [facility] Via intentional ideations MD DAX [facility] self-inflicted Translations: Hospital - injury (22 [ INTENTIONAL [place] sources.) SELF-HARM BY (50501) KNIFE, INITIAL , INTENTIONAL SELF-HARM BY KNIFE, INITIAL , PERSONAL HISTORY OF SELF-HARM, SUICIDAL IDEATION] Ovarian cyst Unspecified 04-03-2020 - Episodic Completed OLGA FLORES , [facility] Via (7 sources.) ovarian cysts [facility] (61966) Urinary tract Urinary tract 04-03-2020 - Episodic Completed RYAN DICKSON Not Available infections (21 infection, (70156) sources.) site not specified Translations: [ URIN TRACT INFECTION NOS, PERSONAL HISTORY OF URINARY (TRACT) INFE] Procedures Procedure Normalized Procedure Procedure Result Performer Facility Date 02-07-2014 ESOPHAGOGASTRODUODENOS no information no name [facility] Via Layla COPY [EGD] W/CLOSE [facility] (46806) ESOPHAGOGASTRODUODENOS no information no name no info rmation COPY [EGD] [facility] 04-27-2018 [facility] visit, estab pt no information no name [facility] (06085) 04-07-2018 [facility]HC visit, estab pt no information no name [facility] (25253) 03-10-2018 [facility] visit, estab pt no information no name [facility] (23983) 05-04-2018 FQHC visit, MH estab no information no name [facility] ([id number]) 05-04-2018 Psychiatric diagnostic no information no name [facility] (17112) 12-18-2014 Therapeutic no information no name [facility] prophylactic/dx Center [facility] injection subq/Critical access hospital (46473) 07-09-2014 Therapeutic no information no name [facility] prophylactic/dx Center [facility] injection subq/im [place] (43454) 05-07-2014 Therapeutic no information no name [facility] prophylactic/dx Center [facility] subq/Critical access hospital (17892) Immunizations The data below is from unstructured sources No Known Immunizations No Known Immunizations No Known Immunizations No Known Immunizations No Known Immunizations No Known Immunizations No Known Immunizations No Known Immunizations No Known Immunizations No Known Immunizations No Known Immunizations No Known Immunizations No Known Immunizations No Known Immunizations No Known Immunizations No Known Immunizations No Known Immunizations No Known Immunizations No Known Immunizations No Known Immunizations No Known Immunizations No Known Immunizations No Known Immunizations No Known Immunizations No Known Immunizations No Known Immunizations No Known Immunizations No Known Immunizations No Known Immunizations No Known Immunizations No Known Immunizations No Known Immunizations No Known Immunizations No Known Immunizations No Known Immunizations No Known Immunizations No Known Immunizations No Known Immunizations No Known Immunizations No Known Immunizations No Known Immunizations No Known Immunizations No Known Immunizations No Known Immunizations No Known Immunizations No Known Immunizations No Known Immunizations No Known Immunizations No Known Immunizations No Known Immunizations No Known Immunizations No Known Immunizations No Known Immunizations No Known Immunizations No Known Immunizations No Known Immunizations No Known Immunizations No Known Immunizations No Known Immunizations No Known Immunizations No Known Immunizations No Known Immunizations No Known Immunizations No Known Immunizations No Known Immunizations No Known Immunizations No Known Immunizations No Known Immunizations No Known Immunizations No Known Immunizations No Known Immunizations No Known Immunizations No Known Immunizations No Known Immunizations No Known Immunizations No Known Immunizations No Known Immunizations No Known Immunizations No Known Immunizations No Known Immunizations No Known Immunizations No Known Immunizations No Known Immunizations No Known Immunizations No Known Immunizations No Known Immunizations No Known Immunizations No Known Immunizations No Known Immunizations No Known Immunizations No Known Immunizations No Known Immunizations No Known Immunizations No Known Immunizations No Known Immunizations No Known Immunizations No Known Immunizations No Known Immunizations No Known Immunizations No Known Immunizations No Known Immunizations No Known Immunizations No Known Immunizations No Known Immunizations No Known Immunizations No Known Immunizations No Known Immunizations No Known Immunizations No Known Immunizations No Known Immunizations No Known Immunizations No Known Immunizations No Known Immunizations No Known Immunizations No Known Immunizations No Known Immunizations No Known Immunizations No Known Immunizations No Known Immunizations No Known Immunizations No Known Immunizations No Known Immunizations No Known Immunizations No Known Immunizations No Known Immunizations No Known Immunizations No Known Immunizations No Known Immunizations No Known Immunizations No Known Immunizations No Known Immunizations No Known Immunizations No Known Immunizations No Known Immunizations No Known Immunizations No Known Immunizations No Known Immunizations No Known Immunizations No Known Immunizations No Known Immunizations No Known Immunizations No Known Immunizations No Known Immunizations No Known Immunizations No Known Immunizations No Known Immunizations No Known Immunizations No Known Immunizations No Known Immunizations No Known Immunizations No Known Immunizations No Known Immunizations No Known Immunizations No Known Immunizations No Known Immunizations No Known Immunizations No Known Immunizations No Known Immunizations No Known Immunizations No Known Immunizations No Known Immunizations No Known Immunizations No Known Immunizations No Known Immunizations No Known Immunizations No Known Immunizations No Known Immunizations No Known Immunizations No Known Immunizations No Known Immunizations No Known Immunizations No Known Immunizations No Known Immunizations No Known Immunizations No Known Immunizations No Known Immunizations No Known Immunizations No Known Immunizations No Known Immunizations No Known Immunizations No Known Immunizations No Known Immunizations No Known Immunizations No Known Immunizations No Known Immunizations No Known Immunizations No Known Immunizations No Known Immunizations No Known Immunizations No Known Immunizations No Known Immunizations No Known Immunizations No Known Immunizations No Known Immunizations No Known Immunizations No Known Immunizations No Known Immunizations No Known Immunizations No Known Immunizations No Known Immunizations No Known Immunizations No Known Immunizations No Known Immunizations No Known Immunizations No Known Immunizations No Known Immunizations No Known Immunizations No Known Immunizations No Known Immunizations No Known Immunizations No Known Immunizations No Known Immunizations No Known Immunizations No Known Immunizations No Known Immunizations No Known Immunizations No Known Immunizations No Known Immunizations No Known Immunizations No Known Immunizations No Known Immunizations No Known Immunizations No Known Immunizations No Known Immunizations No Known Immunizations No Known Immunizations No Known Immunizations No Known Immunizations No Known Immunizations No Known Immunizations No Known Immunizations No Known Immunizations No Known Immunizations No Known Immunizations No Known Immunizations No Known Immunizations No Known Immunizations No Known Immunizations No Known Immunizations No Known Immunizations No Known Immunizations No Known Immunizations No Known Immunizations No Known Immunizations No Known Immunizations No Known Immunizations No Known Immunizations Results Test Name Value Interpretation Reference Range Date Time Fa cility (Normalized) (Normalized) (Medline Reference) laboratory on 2020-04-03 Albumin 4.2 g/dL (NEG) 3.4 - 5.4 g/dL 04-03-2020 PENDING LOCATION [Mass/Vol] 20:0 [facility] (06282) ALP [Catalytic 171 U/L (H) 44 - 147 U/L 04-03-2020 PEND ING LOCATION activity/Vol] 20:0 [facility] (89330) Amphetamines Negative (no code) 04-03-2020 PENDING LOCAT ION Screen Ql (U) 20:0 [facility] (05390) Anion gap 12 mmol/L (NEG) 3 - 11 mmol/L 04-03-2020 PENDING LOCATION [Moles/Vol] 20:-0400 [facility] (05549) AST [Catalytic 19 U/L (NEG) 10 - 34 U/L 04-03-2020 PENDI NG LOCATION activity/Vol] 20:-0400 [facility] (57698) Bacteria LM Ql Negative (no code) 04-03-2020 PENDING LOC ATION (Urine sed) 20:0 [facility] (73695) Barbiturates Ql Negative (no code) 04-03-2020 PENDING LO CATION (U) 20:-0400 [facility] (88273) Basophils (Bld) 0.0 10*3/uL (NEG) 0 - 0.3 10*3/uL 04-03-2020 PENDING LOCATION [#/Vol] 20:0400 [facility] (14866) Basophils/100 0 % (NEG) 0.5 - 1 % 04-03-2020 PENDING LOCATION WBC (Bld) 20:22-0400 [facility] (26895) Benzodiazepines Negative (no code) 04-03-2020 PENDING LO CATION Ql (U) 20:22-0400 [facility] (30722) Bilirubin 0.4 mg/dL (NEG) 0.1 - 1.2 mg/dL 04-03-2020 PENDIN G LOCATION [Mass/Vol] 20:22-0400 [facility] (95961) Bilirubin Ql (U) Negative (no code) 04-03-2020 PENDING L OCATION 20:22-0400 [facility] (29908) Calcium 9.6 mg/dL (NEG) 8.5 - 10.2 mg/dL 04-03-2020 PENDI NG LOCATION [Mass/Vol] 20:22-0400 [facility] (86387) Calcium 9.4 mg/dL (NEG) 8.5 - 10.2 mg/dL 04-03-2020 PENDI NG LOCATION [Mass/Vol] 20:22-0400 [facility] (72113) Cannabinoids Negative (no code) 04-03-2020 PENDING LOCAT ION Screen Ql (U) 20:22-0400 [facility] (25293) Casts LM Ql NONE (no code) 04-03-2020 PENDING LOCATI ON (Urine sed) 20:22-0400 [facility] (33494) Chloride 101 mmol/L (NEG) 95 - 106 mmol/L 04-03-2020 PENDI NG LOCATION [Moles/Vol] 20:22-0400 [facility] (44324) Clarity (U) CLEAR (no code) 04-03-2020 PENDING LOCATI ON 20:22-0400 [facility] (49547) CO2 [Moles/Vol] 21 mmol/L (NEG) 23 - 29 mmol/L 04-03-2020 P ENDING LOCATION 20:22-0400 [facility] (04074) Cocaine Ql (U) Negative (no code) 04-03-2020 PENDING LOC ATION 20:22-0400 [facility] (96852) Color (U) YELLOW (no code) 04-03-2020 PENDING LOCATI ON 20:22-0400 [facility] (89047) Creatinine 0.87 mg/dL (NEG) 04-03-2020 PENDING LOCATI ON [Mass/Vol] 20:22-0400 [facility] (43818) Creatinine and > (no code) 04-03-2020 PENDING LOC ATION Glomerular 20:22-0400 [facility] (02273) filtration rate.predicted panel - Serum, Plasma or Blood Crystals LM Ql NONE (no code) 04-03-2020 PENDING LOC ATION (Urine sed) 20:22-0400 [facility] (78399) Eosinophils 0.3 10*3/uL (NEG) 0.05 - 0.5 04-03-2020 PENDING LOCATION (Bld) [#/Vol] 10*3/uL 20:22-0400 [facility] (65025) Eosinophils/100 3 % (NEG) 1 - 4 % 04-03-2020 PENDIN G LOCATION WBC (Bld) 20:22-0400 [facility] (99866) Epithelial 2-5 (no code) 04-03-2020 PENDING LOCATI ON cells.squamous 20:22-0400 [facility] (57888) LM Ql (Urine sed) Erythrocyte 12.7 % (NEG) 11.6 - 14.6 % 04-03-2020 PENDIN G LOCATION distribution 20:22-0400 [facility] (06120) width (RBC) [Ratio] Glucose 409 mg/dL (HH) 60 - 125 mg/dL 04-03-2020 PENDING LOCATION [Mass/Vol] 20:30-0400 [facility] (30453) Glucose Auto 3+ (A) 04-03-2020 PENDING LOCAT ION test strip Ql 20:22-0400 [facility] (13989) (U) HCG ( Negative (no code) 04-03-2020 PENDING LOC ATION test) Ql 20:22-0400 [facility] (84800) Hematocrit (Bld) 40 % (NEG) 36.1 - 50.3 % 04-03-2020 P ENDING LOCATION [Volume 20:22-0400 [facility] (38555) fraction] Hemoglobin (Bld) 14.8 g/dL (NEG) 12.1 - 17.2 g/dL 04-03-2020 PENDING LOCATION [Mass/Vol] 20:22-0400 [facility] ([id number]) Ketones Auto 1+ (A) 04-03-2020 PENDING LOCAT ION test strip Ql 20:22-0400 [facility] (92852) (U) Leukocyte Negative (no code) 04-03-2020 PENDING LOCATI ON esterase Test 20:22-0400 [facility] (59720) strip Ql (U) Lymphocytes 3.3 10*3/uL (NEG) 0.9 - 2.9 04-03-2020 PENDING LOCATION (Bld) [#/Vol] 10*3/uL 20:22-0400 [facility] (58002) Lymphocytes/100 32 % (NEG) 20 - 40 % 04-03-2020 PENDIN G LOCATION WBC (Bld) 20:22-0400 [facility] (63119) MCH (RBC) 30 pg (NEG) 27 - 31 pg 04-03-2020 PENDING LOC ATION [Entitic mass] 20:22-0400 [facility] ([id number]) MCHC (RBC) 37 g/dL (H) 32 - 36 g/dL 04-03-2020 PENDING LOCATION [Mass/Vol] 20:22-0400 [facility] (57884) MCV (RBC) 82 (NEG) 04-03-2020 PENDING LOCATI ON [Entitic vol] 20:-0400 [facility] (55933) Methadone Screen Negative (no code) 04-03-2020 PENDING L OCATION Ql (U) 20:-0400 [facility] ([id number]) Methamphetamine Negative (no code) 04-03-2020 PENDING LO CATION (U) [Mass/Vol] 20:22-0400 [facility] (67838) Monocytes (Bld) 0.9 10*3/uL (NEG) 0.3 - 0.9 04-03-2020 PEND ING LOCATION [#/Vol] 10*3/uL 20:22-0400 [facility] (68682) Monocytes/100 9 % (NEG) 2 - 8 % 04-03-2020 PENDING LOCATION WBC (Bld) 20:22-0400 [facility] (65958) Mucus Ql (Urine SMALL (A) 04-03-2020 PENDING LO CATION sed) 20:22-0400 [facility] (66730) Neutrophils 5.8 10*3/uL (NEG) 1.7 - 7 10*3/uL 04-03-2020 PE NDING LOCATION (Bld) [#/Vol] 20:22-0400 [facility] (97117) Neutrophils/100 56 % (NEG) 40 - 60 % 04-03-2020 PENDIN G LOCATION WBC (Bld) 20:22-0400 [facility] (23046) Nitrite Ql (U) Negative (no code) 04-03-2020 PENDING LOC ATION 20:22-0400 [facility] (20719) Opiates Screen Negative (no code) 04-03-2020 PENDING LOC ATION Ql (U) 20:22-0400 [facility] (27739) Oxycodone Ql (U) Negative (no code) 04-03-2020 PENDING L OCATION 20:22-0400 [facility] (65623) pH (U) 6.0 [pH] (no code) 4.6 - 8 [pH] 04-03-2020 PENDING L OCATION 20:22-0400 [facility] (43146) Phencyclidine Ql Negative (no code) 04-03-2020 PENDING L OCATION (U) 20:22-0400 [facility] (46548) Platelet mean 10.3 (NEG) 04-03-2020 PENDING LOCA TION volume (Bld) 20:22-0400 [facility] (30899) [Entitic vol] Platelets (Bld) 211 10*3/uL (NEG) 150 - 450 04-03-2020 PEND ING LOCATION [#/Vol] 10*3/uL 20:22-0400 [facility] (66263) Potassium 3.5 mmol/L (L) 3.7 - 5.2 mmol/L 04-03-2020 PEND ING LOCATION [Moles/Vol] 20:22-0400 [facility] (40653) Propoxyphene Ql Negative (no code) 04-03-2020 PENDING LO CATION (U) 20:22-0400 [facility] (16978) Protein 7.0 g/dL (NEG) 6.4 - 8.3 g/dL 04-03-2020 PENDING LOCATION [Mass/Vol] 20:22-0400 [facility] (96762) Protein Ql (U) Negative (no code) 04-03-2020 PENDING LOC ATION 20:22-0400 [facility] (33464) RBC (Bld) 4.89 10*6/uL (NEG) 4.2 - 6.1 04-03-2020 PENDING L OCATION [#/Vol] 10*6/uL 20:22-0400 [facility] (98186) RBC LM.HPF NONE (no code) 04-03-2020 PENDING LOCATI ON (Urine sed) 20:22-0400 [facility] (65928) [#/Area] RBC Ql (U) Negative (no code) 04-03-2020 PENDING LOCATI ON 20:22-0400 [facility] (77792) Sodium 134 mmol/L (L) 135 - 145 mmol/L 04-03-2020 PEND ING LOCATION [Moles/Vol] 20:22-0400 [facility] (69489) Specific gravity <= (no code) 04-03-2020 PENDING L OCATION (U) [Rel 20:22-0400 [facility] (58355) density] Tricyclic Negative (no code) 04-03-2020 PENDING LOCATI ON antidepressants 20:22-0400 [facility] (18695) Screen Ql (U) Urea nitrogen 9 mg/dL (NEG) 7 - 20 mg/dL 04-03-2020 PENDI NG LOCATION [Mass/Vol] 20:22-0400 [facility] (72788) Urea 10 mg/mg (no code) 6 - 22 mg/mg 04-03-2020 PENDING L OCATION nitrogen/Creatin 20:22-0400 [facility] (98073) ine [Mass ratio] Urinalysis NO (no code) 04-03-2020 PENDING LOCATI ON complete W 20:22-0400 [facility] (50653) Reflex Culture panel - Urine Urobilinogen (U) 0.2 mg/dL (no code) 04-03-2020 PENDING L OCATION [Mass/Vol] 20:22-0400 [facility] (02294) WBC (Bld) 10.3 10*3/uL (NEG) 3.5 - 10.5 04-03-2020 PENDING LOCATION [#/Vol] 10*3/uL 20:22-0400 [facility] (38136) WBC LM.HPF NONE (no code) 04-03-2020 PENDING LOCATI ON (Urine sed) 20:22-0400 [facility] (91877) [#/Area] not yet categorized on 2020-03-26 A:C (IN HOUSE) <30 (no code) [facility] (26619) CRE 10~10 (no code) [facility] (67884) Exp date 09/2021 (no code) [facility] (70553) Lot 0610 (no code) [facility] (02119) Lot # [id number] (no code) [facility] (67382) MICROALBUMIN normal (no code) [facility] (51322) laboratory on 2020-03-26 Color (U) 06/2020~clear~ye (no code) [facility] llow [facility] (23948) HbA1c (Bld) % (no code) 0 - 5.7 % [facility] [Mass fraction] [facility] (57686) not yet categorized on 2020-02-27 CLINICAL no information (N) [facility] INFORMATION: [facility] (74398) COMMENT no information (no code) [facility] (86452) Date of previous no information (N) [facility] biopsy [facility] (78935) Date of previous 2000 (N) [facility] PAP smear [facility] (01016) Last menstrual 02-19-2020 (N) [facility] period start [facility] (07127) laboratory on 2020-02-27 Slitter [employer]ot[employer] Cyto no information (N) [facility] stain Nom [facility] (Cvx/Vag) [ID] [facility] (35147) HPV E6+E7 mRNA Not Detected (N) [facility] SEDA+probe Ql [facility] (Cvx) [facility] (39726) Microscopic no information (N) [facility] observation Cyto [facility] Nom (Cvx) [facility] (90962) Specimen source Cervix (N) [facility] Cyto stain Nom [facility] (Cvx/Vag) [facility] (72435) Statement of no information (N) [facility] adequacy Cyto [facility] (Cvx/Vag) [facility] [Interp] (44306) other on 2017-11-18 Prolactin mass 61.7 ng/mL (H) [facility] conc [facility] (74429) other on 2017-06-21 Albumin/Globulin 1.8 {ratio} (no code) 1 - 2.5 {ratio} 7 Not Available [Mass ratio] 09: (50610) Cholesterol in 41 mg/dL (H) 06-21-2017 Not Availab le VLDL [Mass/Vol] 09: (90613) Erythrocyte 13.6 % (no code) 11.6 - 14.6 % 06-21-2017 Not Av ailable distribution 07: (27052) width (RBC) [Ratio] Globulin (S) 2.2 g/dL (no code) 2 - 3.5 g/dL 06-21-2017 Not Av ailable [Mass/Vol] 09: (78867) Immature 0.0 10*3/uL (no code) 0 - 0.2 10*3/uL 06-21-2017 Not Available granulocytes 07: (67863) (Bld) [#/Vol] Immature 0 % (no code) 0 - 0.5 % 06-21-2017 Not Availabl e granulocytes/100 07: (12199) WBC (Bld) MCHC (RBC) 34.5 g/dL (no code) 32 - 36 g/dL 06-21-2017 Not Avai lable [Mass/Vol] 07: (69931) Prolactin 148.6 ng/mL (H) 06-21-2017 Not Available [Mass/Vol] 09:0 (23843) metabolic panel on 2017-06-21 Albumin 4.0 g/dL (no code) 3.4 - 5.4 g/dL 06-21-2017 Not Cande ilable [Mass/Vol] 09: (25551) ALP [Catalytic 131 U/L (H) 44 - 147 U/L 06-21-2017 Not Available activity/Vol] 09: (53940) ALT [Catalytic 26 U/L (no code) 4 - 40 U/L 06-21-2017 Not Av ailable activity/Vol] 09: (22558) AST [Catalytic 21 U/L (no code) 10 - 34 U/L 06-21-2017 Not A vailable activity/Vol] 09: (03522) Bilirubin 0.2 mg/dL (no code) 0.1 - 1.2 mg/dL 06-21-2017 Not Av ailable [Mass/Vol] 09:05 (98080) Calcium 9.6 mg/dL (no code) 8.5 - 10.2 mg/dL 06-21-2017 Not A vailable [Mass/Vol] 07:58 (82760) Chloride 104 mmol/L (no code) 95 - 106 mmol/L 06-21-2017 Not A vailable [Moles/Vol] 07:580 (58296) CO2 [Moles/Vol] 19 mmol/L (no code) 23 - 29 mmol/L 06-21-2017 N ot Available 09: (79969) Creatinine 0.67 mg/dL (no code) 06-21-2017 Not Available [Mass/Vol] 09: (66252) GFR/1.73 sq M 131 (no code) 90 - 120 06-21-2017 Not Avai lable predicted among mL/min/{1.73_m2} mL/min/{1.73_m2} 09: (47609) blacks MDRD (S/P/Bld) [Vol rate/Area] GFR/1.73 sq M 113 (no code) 90 - 120 06-21-2017 Not Avai lable predicted among mL/min/{1.73_m2} mL/min/{1.73_m2} 09: (98936) non-blacks MDRD (S/P/Bld) [Vol rate/Area] Glucose 122 mg/dL (H) 60 - 125 mg/dL 06-21-2017 Not Cande ilable [Mass/Vol] 09: (42790) Potassium 4.3 mmol/L (no code) 3.7 - 5.2 mmol/L 06-21-2017 Not Available [Moles/Vol] 07:580 (12911) Protein 6.2 g/dL (no code) 6.4 - 8.3 g/dL 06-21-2017 Not Cande ilable [Mass/Vol] 09:05 (47317) Sodium 141 mmol/L (no code) 135 - 145 mmol/L 06-21-2017 Not Available [Moles/Vol] 07:58-0400 (09243) Urea nitrogen 16 mg/dL (no code) 7 - 20 mg/dL 06-21-2017 Not A vailable [Mass/Vol] 09:05-0400 (15278) Urea 24 mg/mg (H) 6 - 22 mg/mg 06-21-2017 Not Avail able nitrogen/Creatin 09: (53579) ine [Mass ratio] hematology on 2017-06-21 Basophils (Bld) 0.0 10*3/uL (no code) 0 - 0.3 10*3/uL 06-21-2017 Not Available [#/Vol] 07:01-0400 (54450) Basophils/100 0 % (no code) 0.5 - 1 % 06-21-2017 Not Avai lable WBC (Bld) 07:0 (26624) Eosinophils 0.5 10*3/uL (H) 0.05 - 0.5 06-21-2017 Not Cande ilable (Bld) [#/Vol] 10*3/uL 07:0400 (26029) Eosinophils/100 4 % (no code) 1 - 4 % 06-21-2017 Not Av ailable WBC (Bld) 07:0400 (59578) Hematocrit (Bld) 44.0 % (no code) 36.1 - 50.3 % 06-21-2017 N ot Available [Volume 07: (79067) fraction] Hemoglobin (Bld) 15.2 g/dL (no code) 12.1 - 17.2 g/dL 06-21-2017 Not Available [Mass/Vol] 07:0400 (40079) Lymphocytes 4.5 10*3/uL (H) 0.9 - 2.9 06-21-2017 Not Avai lable (Bld) [#/Vol] 10*3/uL 07:0400 (55422) Lymphocytes/100 42 % (no code) 20 - 40 % 06-21-2017 Not Av ailable WBC (Bld) 07:0400 (13855) MCH (RBC) 28.8 pg (no code) 27 - 31 pg 06-21-2017 Not Availab le [Entitic mass] 07: (62560) MCV (RBC) 83 fL (no code) 80 - 100 fL 06-21-2017 Not Availa ble [Entitic vol] 07: (19427) Monocytes (Bld) 0.8 10*3/uL (no code) 0.3 - 0.9 06-21-2017 Not Available [#/Vol] 10*3/uL 07:0400 (67490) Monocytes/100 8 % (no code) 2 - 8 % 06-21-2017 Not Avai lable WBC (Bld) 07: (36300) Neutrophils 4.8 10*3/uL (no code) 1.7 - 7 10*3/uL 06-21-2017 No t Available (Bld) [#/Vol] 07:0400 (55414) Neutrophils/100 46 % (no code) 40 - 60 % 06-21-2017 Not Av ailable WBC (Bld) 07: (55389) Platelets (Bld) 261 10*3/uL (no code) 150 - 450 06-21-2017 Not Available [#/Vol] 10*3/uL 07:0400 (40055) RBC (Bld) 5.28 10*6/uL (no code) 4.2 - 6.1 06-21-2017 Not Avail able [#/Vol] 10*6/uL 07:0400 (11170) WBC (Bld) 10.6 10*3/uL (no code) 3.5 - 10.5 06-21-2017 Not Avai lable [#/Vol] 10*3/uL 07:0400 (02116) cardiac on 2017-06-21 Cholesterol 189 mg/dL (no code) 180 - 200 mg/dL 06-21-2017 Not Available [Mass/Vol] 09:05-0400 ([id number]) Cholesterol in 32 mg/dL (L) 06-21-2017 Not Availab le HDL [Mass/Vol] 09:05-0400 ([id number]) Cholesterol in 116 mg/dL (H) 0 - 100 mg/dL 06-21-2017 Not Available LDL [Mass/Vol] 09:05-0400 ([id number]) Triglyceride 207 mg/dL (H) 0 - 150 mg/dL 06-21-2017 Not A vailable [Mass/Vol] 09:05040 ([id number]) Vital Signs Vital Sign Value Interpretation Reference Date Time Care Prov ider Facility (Normalized) (Normalized) Range BMI (Body Mass 30.86 kg/m2 (no code) 15 - 25 kg/m2 08-28-2018 UY EN SILVERIO Community Index) 17:40-[address] [place] [address] ([id number]) BMI (Body Mass 32.26 kg/m2 (no code) 15 - 25 kg/m2 08-16-2018 ALMA AUTUMN RICH Community Index) 12:55-[address] [place] [address] ([id number]) BMI (Body Mass 31.06 kg/m2 (no code) 15 - 25 kg/m2 05-24-2018 [facility] Community Index) 11:00-[address] [place] [address] ([id number]) BMI (Body Mass 30.04 kg/m2 (no code) 15 - 25 kg/m2 05-02-2018 [facility] Community Index) 12:20-[address] [place] [address] ([id number]) BMI (Body Mass 30.69 kg/m2 (no code) 15 - 25 kg/m2 04-27-2018 [facility] Community Index) 11:40-[address] [place] [address] ([id number]) BMI (Body Mass 31.19 kg/m2 (no code) 15 - 25 kg/m2 04-07-2018 [facility] Community Index) 14:000400 [address] [place] [address] ([id number]) BMI (Body Mass 31.06 kg/m2 (no code) 15 - 25 kg/m2 03-10-2018 [facility] Community Index) 16:[address] [place] [address] ([id number]) Body height 167 cm (no code) cm 01-15-2019 REGAN SILVERIO Co mmunity 14:[address] [place] [address] ([id number]) Body mass 32.52 kg/m2 (no code) 15 - 25 kg/m2 01-15-2019 REGAN DI MS Community index (BMI) 14:20040 [id number] [facility] [Ratio] [facility] ([id number]) Body 98.6 [degF] (no code) 97.8 - 99.0 08-16-2018 JOSE [facility] Temperature [degF] 12:55-[id number] [place] [address] [id number] Body 98.8 [degF] (no code) 97.8 - 99.0 05-16-2014 [facility] Temperature [degF] 17:35-[email or web address] [place] [address] ([id number]) Body weight 90.72 kg (no code) kg 01-15-2019 REGAN SILVERIO Co mmunity 14:200400 [id number] [facility] ([id number]) Body weight 85.84 kg (no code) kg 05-16-[facility] munity 17:35-[address] ([id number]) Height 167 cm (no code) cm 08-28-2018 REGAN SILVERIO Commu nity 17:40-[id number] [place] [address] ([id number]) Height 167 cm (no code) cm 08-16-2018 JOSE Commu nity 12:55-[address] [place] [address] ([id number]) Height 167 cm (no code) cm 05-24-2018 REGAN SILVERIO Commu nity 11:00-0400 23259 [facility] ([id number]) Height 167 cm (no code) cm 05-02-2018 REGAN SILVERIO Commu nity 12:200400 [id number] [place] [address] ([id number]) Height 167 cm (no code) cm 04-27-2018 REAGN SILVERIO Commu nity 11:40-0400 30922 [facility] ([id number]) Height 167 cm (no code) cm 04-07-2018 REGAN SILVERIO Commu nity 14:00-[id number] [place] [address] ([id number]) Height 167 cm (no code) cm 03-10-2018 REGAN SILVERIO Commu nity 16:20-0400 23083 [facility] ([id number]) Weight 86.09 kg (no code) kg 08-28-2018 REGAN SILVERIO Commu nity 17:40-[address] [place] [address] ([id number]) Weight 89.99 kg (no code) kg 08-16-2018 ROSE MARIE RICH Commu nity 12:55-[address] [place] [address] ([id number]) Weight 86.64 kg (no code) kg 05-24-2018 REGAN SILVERIO Commu nity 11:00-[address] [place] [address] ([id number]) Weight 83.78 kg (no code) kg 05-02-2018 REGAN SILVERIO Commu nity 12:20-[address] [place] [address] ([id number]) Weight 85.59 kg (no code) kg 04-27-2018 REGAN SILVERIO Commu nity 11:40-[address] [place] [address] ([id number]) Weight 87 kg (no code) kg 04-07-2018 REGAN SILVERIO Commu nity 14:00-[address] [place] [address] ([id number]) Weight 86.64 kg (no code) kg 03-10-2018 REGAN SILVERIO Commu nity 16:20-[address] [place] [address] ([id number]) Interventions No Information Plan of Treatment Normalized Care Care Detail Care Activity Date Care Provider F acility Activity (PS-) [facility] 08-22-2018 REGAN SILVERIO [id number] [facility] F/U 20 [facility] ([id number]) (PSY-FU-) [facility] 08-28-2018 REGAN SILVERIO [id number] Commu nity Health Psychiatry F/U 20 [facility] ([id number]) (PSY-FU-) [facility] 10-30-2018 REGAN SILVERIO 54721 [id number] 09-20-2018 REGAN SILVERIO [id number] [facility] Psychiatry F/U 20 [facility] ([id number]) Goals No Information Social History The data below is from unstructured sources History Response Recorde d Date/Time Hx Family Cancer Y 02/10 7:15am Hx Family Colorectal Cancer Y GRANDMA 02/10/13 7:15am Hx Family Cardiac Disorders Y 02/10/13 7:15am Hx Family Hypertension Y DAD 02/10/13 7:15am Hx Family Myocardial Infarction Y GRANDPA 02/10/13 7:15am History Response Recorde d Date/Time Alcohol Use Rarely Uses 05/18/13 4:46pm Recreational Drug Use N 05/18/13 4:46pm Recent Infectious Disease Exposure N 02/10/13 1:13pm Sexually Transmitted Disease N 02/10/13 1:13pm HIV/AIDS N 02/10/13 1:13 pm Functional Status No Information Mental Status No Information Encounters Encounter Normalized Encounter Encounter Diagnosis Care Provi gabriel Organization Date Type 08-22-2018 (PSY-FU-20) Psychiatry no information REGAN SILVERIO (no phone) [facility] F/U 20 min (no phone) 06-07-2018 [facility] no information REGAN SILVERIO (no phone) [facility] - (no phone) 06-07-2018 - 06-07-2018 04-03-2020 Emergency department no information GAURANG STANTON DO (no [facility] patient visit phone) [facility] (no phone) 03-07-2019 Emergency department no information IVORY DICKSON MD (no [facility] - patient visit phone) [facility] 03-08-2019 (no phone) 11-13-2018 Emergency department no information no name no organization name - patient visit 11-13-2018 11-12-2018 Emergency department no information JOHN LUTHER [facility] - patient visit (no phone) [facility] 11-13-2018 (no phone) [facility] Emergency department no information no name no organization name 08-15-2018 patient visit - 08-16-2018 08-15-2018 Emergency department no information TANYA JEAN BAPTISTE (no [facility] - patient visit phone) [facility] 08-15-2018 (no phone) 05-03-2018 Emergency department no information no name no organization name - patient visit 05-03-2018 05-02-2018 Emergency department no information DARRICK GUDINO MD [facility] - patient visit (no phone) [facility] 05-03-2018 (no phone) 03-12-2018 Emergency department no information no name no organization name - patient visit 03-12-2018 03-12-2018 Emergency department no information TWILA LAWLER MD (no [facility] - patient visit phone) [facility] 03-12-2018 (no phone) [facility] Emergency department no information no name no organization name 01-29-2018 patient visit 12-27-2017 Emergency department no information no name no organization name - patient visit 12-27-2017 12-26-2017 Emergency department no information GAURANG STANTON DO (no [facility] - patient visit phone) [facility] 12-27-2017 (no phone) 07-29-2017 Emergency department no information no name no organization name - patient visit 07-29-2017 07-28-2017 Emergency department no information IVORY DICKSON MD (no [facility] - patient visit phone) [facility] 07-28-2017 (no phone) 07-09-2017 Emergency department no information no name no organization name - patient visit 07-09-2017 07-09-2017 Emergency department no information IVORY DICKSON MD (no [facility] - patient visit phone) [facility] 07-09-2017 (no phone) 05-03-2017 Emergency department no information no name no organization name - patient visit 05-03-2017 05-02-2017 Emergency department no information JOHN LUTHER [facility] - patient visit (no phone) [facility] 05-03-2017 (no phone) 01-25-2017 Emergency department no information no name no organization name - patient visit 01-25-2017 01-24-2017 Emergency department no information FRANCISCO Bundy DO [facility] - patient visit (no phone) [facility] 01-24-2017 (no phone) 05-25-2016 Emergency department no information no name no organization name - patient visit 05-26-2016 05-25-2016 Emergency department no information GAURANG STANTON DO (no [facility] - patient visit phone) [facility] 05-25-2016 (no phone) 10-11-2015 Emergency department no information no name no organization name - patient visit 10-11-2015 10-11-2015 Emergency department no information DARRICK GUDINO MD, [facility] - patient visit (no phone) [facility] 10-11-2015 (no phone) 06-12-2015 Emergency department no information no name no organization name - patient visit 06-13-2015 06-12-2015 Emergency department no information GAURANG STANTON DO (no [facility] - patient visit phone) [facility] 06-12-2015 (no phone) 07-14-2014 Emergency department no information no name no organization name - patient visit 07-14-2014 07-13-2014 Emergency department no information DARRICK ARCE [facility] - patient visit (no phone) [facility] 07-14-2014 (no phone) 06-19-2014 Emergency department no information no name no organization name - patient visit 06-19-2014 06-19-2014 Emergency department no information no name no organization name - patient visit 06-19-2014 02-05-2014 Emergency department no information no name no organization name - patient visit 02-05-2014 02-04-2014 Emergency department no information no name no organization name - patient visit 02-04-2014 NEGATED Emergency department no information no name no organization name 11-17-2013 patient visit - 11-17-2013 11-17-2013 Emergency department no information no name no organization name - patient visit 11-17-2013 09-06-2013 Emergency department no information no name no organization name - patient visit 09-07-2013 02-08-2013 Emergency department no information no name no organization name - patient visit 02-08-2013 11-08-2012 Emergency department no information no name no organization name - patient visit 11-08-2012 01-29-2018 Evaluation and no information no name no organ ization name - management of 01-30-2018 inpatient 01-29-2018 Evaluation and no information no name no organ ization name - management of 01-30-2018 inpatient 01-29-2018 Evaluation and no information INDY MCCLAIN MD (no [facility] - management of phone) [facility] 01-30-2018 inpatient (no phone) 12-04-2014 Evaluation and no information no name no organ ization name - management of 12-06-2014 inpatient 12-04-2014 Evaluation and no information OLGA LUCERO MD (no [facility] - management of phone) [facility] 12-06-2014 inpatient (no phone) [facility] Evaluation and no information no name no organ ization name 02-06-2014 management of - inpatient 02-07-2014 02-06-2014 Evaluation and no information no name no organ ization name - management of 02-07-2014 inpatient 08-15-2018 Patient encounter no information no name no or ganization name 05-24-2018 Patient encounter no information no name no or ganization name 05-11-2018 Patient encounter no information no name no or ganization name 05-04-2018 Patient encounter no information no name no or ganization name 05-03-2018 Patient encounter no information no name no or ganization name 04-27-2018 Patient encounter no information no name no or ganization name 04-07-2018 Patient encounter no information no name no or ganization name [facility] Patient encounter no information no name no or ganization name 03-16-2018 03-12-2018 Patient encounter no information no name no or ganization name [facility] Patient encounter no information no name no or ganization name 03-10-2018 02-27-2018 Patient encounter no information no name no or ganization name 02-13-2018 Patient encounter no information no name no or ganization name 01-29-2018 Patient encounter no information no name no or ganization name - 01-30-2018 01-25-2018 Patient encounter no information no name no or ganization name 12-27-2017 Patient encounter no information no name no or ganization name 12-23-2017 Patient encounter no information no name no or ganization name 12-15-2017 Patient encounter no information no name no or ganization name 11-18-2017 Patient encounter no information no name no or ganization name 08-08-2017 Patient encounter no information no name no or ganization name 09-23-2016 Patient encounter no information no name no or ganization name 06-04-2016 Patient encounter no information OLGA LUCERO MD (no [facility] phone) [facility] (no phone) 01-29-2016 Patient encounter no information no name no or ganization name 11-17-2015 Patient encounter no information no name no or ganization name 11-12-2015 Patient encounter no information no name no or ganization name - 11-12-2015 11-10-2015 Patient encounter no information no name no or ganization name 11-06-2015 Patient encounter no information OLGA LUCERO MD (no [facility] phone) [facility] (no phone) 08-11-2015 Patient encounter no information OLGA LUCERO MD (no [facility] - phone) [facility] 11-05-2015 (no phone) 07-28-2015 Patient encounter no information no name no or ganization name NEGATED Patient encounter no information no name no or ganization name 07-08-2015 NEGATED Patient encounter no information no name no or ganization name 08-23-2014 05-23-2014 Patient encounter no information no name no or ganization name 05-02-2014 Patient encounter no information no name no or ganization name - 05-02-2014 04-30-2014 Patient encounter no information no name no or ganization name 04-09-2014 Patient encounter no information no name no or ganization name 04-03-2014 Patient encounter no information no name no or ganization name 02-28-2014 Patient encounter no information no name no or ganization name 01-11-2014 Patient encounter no information no name no or ganization name 11-27-2013 Patient encounter no information no name no or ganization name [facility]ATED Patient encounter no information no name no or ganization name 09-06-2013 08-07-2013 Patient encounter no information no name no or ganization name NE[facility]ATED Patient encounter no information no name no or ganization name 08-06-2013 NEGATED Patient encounter no information no name no or ganization name 08-02-2012 03-26-2020 Patient encounter no information NEFTALI XIE [facility] (no phone) [facility] (no phone) 02-18-2020 Patient encounter no information Samia Lucero ([facility]) [facility] (no phone) 12-10-2019 Patient encounter no information JACLYN Schwartz [facility] procedure HANNY OD (no [facility] phone) (no phone) 10-18-2019 Patient encounter no information no name no or ganization name procedure 09-19-2019 Patient encounter no information no name no or ganization name procedure 09-08-2019 Patient encounter no information no name no or ganization name procedure 08-22-2019 Patient encounter no information no name no or ganization name procedure 08-09-2019 Patient encounter no information BRYAN YBARRA PA (no [facility] procedure phone) [facility] (no phone) 08-06-2019 Patient encounter no information NEELA ISSA [facility] procedure TOOL [facility]EEPER (no phone) [facility] (no phone) 07-05-2019 Patient encounter no information no name no or ganization name procedure 07-05-2019 Patient encounter no information NEELA ISSA [facility] procedure 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 KEEPER (no phone) [facility] (no phone) 07-03-2019 Patient encounter no information no name no or ganization name procedure 05-23-2019 Patient encounter no information no name no or ganization name procedure 05-07-2019 Patient encounter no information no name no or ganization name procedure 03-27-2019 Patient encounter no information no name no or ganization name procedure 03-27-2019 Patient encounter no information no name no or ganization name procedure 03-08-2019 Patient encounter no information no name no or ganization name procedure 02-19-2019 Patient encounter no information no name no or ganization name procedure 01-15-2019 Patient encounter no information no name no or ganization name procedure 12-28-2018 Patient encounter no information no name no or ganization name procedure 11-16-2018 Patient encounter no information no name no or ganization name procedure 11-13-2018 Patient encounter no information no name no or ganization name procedure 11-10-2018 Patient encounter no information no name no or ganization name procedure 11-10-2018 Patient encounter no information TINY HOOD RN [facility] procedure (no phone) [facility] (no phone) 10-30-2018 Patient encounter no information no name no or ganization name procedure 12-23-2017 Patient encounter no information TINY HOOD RN [facility] procedure (no phone) [facility] (no phone) 08-08-2017 Patient encounter no information OLGA LUCERO MD (no [facility] procedure phone) [facility] (no phone) 07-09-2017 Patient encounter no information no name no or ganization name procedure 05-03-2017 Patient encounter no information no name no or ganization name procedure 01-25-2017 Patient encounter no information no name no or ganization name procedure 09-23-2016 Patient encounter no information ADAIR AMOS P [facility] procedure (no phone) [facility] (no phone) 01-29-2016 Patient encounter no information OLGA LUCERO MD (no [facility] procedure phone) [facility] (no phone) 11-17-2015 Patient encounter no information OLGA LUCERO MD (no [facility] procedure phone) [facility] (no phone) 11-12-2015 Patient encounter no information TREVIN DALE MD (n o [facility] - procedure phone) [facility] 11-12-2015 (no phone) 11-10-2015 Patient encounter no information TREVIN DALE MD (n o [facility] procedure phone) [facility] (no phone) 07-28-2015 Patient encounter no information ADAIR AMOS P [facility] procedure (no phone) [facility] (no phone) 07-08-2015 Patient encounter no information OLGA LUCERO MD (no [facility] procedure phone) [facility] (no phone) 08-23-2014 Patient encounter no information ADAIR AMOS P [facility] procedure (no phone) [facility] (no phone) 05-23-2014 Patient encounter no information no name no or ganization name procedure 04-30-2014 Patient encounter no information no name no or ganization name procedure 04-03-2014 Patient encounter no information no name no or ganization name procedure 02-28-2014 Patient encounter no information no name no or ganization name procedure 01-11-2014 Patient encounter no information no name no or ganization name procedure 11-27-2013 Patient encounter no information no name no or ganization name procedure 02-08-2013 Patient encounter no information no name no or ganization name procedure 12-10-2019 no information Encounter for other no name (no phone) preprocedural examination no information Encounter for dental no name no organi zation name examination and cleaning without abnormal findings no information Encounter for other no name no organiz ation name preprocedural examination no information Pre-procedural no name no organization name laboratory examination Medical Equipment No Information Payers The data below is from unstructured sources Payer Name Policy Number Subscriber Name Relationship [facility] [id number] Rosemary Kulkarni Self / Same As Patient s Medicare [id number] Rosemary Kulkarni Self / Same As Patient Summary Purpose eClinicalWorks SubmissioneClinicalWorks SubmissioneClinicalWorks SubmissioneClinicalWorks SubmissioneClinicalWorks SubmissioneClinicalWorks SubmissioneClinicalWorks SubmissioneClinicalWorks SubmissioneClinicalWorks SubmissioneClinicalWorks SubmissioneClinicalWorks Submission Advance Directives Directive Response Recor ded Date Advance Directives N 4:46pm Health Care Power of Corn Shucker N 02/10/13 7:15am Organ Donor Y 02/10/13 7 :15am Additional Source Comments This clinical document has been generated using [employer] software that has been certified by the Office of the National Coordinator for Health Information Technology (ONC 15.99.04.3023.Diam.31.00.0.596614) and the National Committee for Congressional Assistant (NCQA, as an eMeasure certified technology). FOR RECORDS PERTAINING TO PATIENTS WHO ARE OR HAVE BEEN ENROLLED IN A CHEMICAL D EPENDENCY/SUBSTANCE ABUSE PROGRAM, SOME INFORMATION MAY BE OMITTED. This clinica l summary was aggregated from multiple sources. Caution should be exercised in using it in the provision of clinical care. This summary normalizes information from multiple sources, and as a consequence, information in this document may ma terially change the coding, format and clinical context of patient data. In l[place] tion, data may be omitted in some cases. CLINICAL DECISIONS SHOULD BE BASED ON T HE PRIMARY CLINICAL RECORDS. [employer] provides no warranty or guara ntee of the accuracy or completeness of information in this document.The followi ng information is based on time limited clinical information UNRECOGNIZED CONTENT PROVIDED BELOW FOR UNRECOGNIZED SECTION MEDICAL (GENERAL) HISTORY Type Description Date Medical History diabetes Medical History thyroid Surgical History appendix Surgical History gallbladder Surgical History eyes Surgical History hip Surgical History MRI on back and pelvis 06/08 Hospitalization History surgeries Hospitalization History [facility] 06/14/2016 Type Description Date Medical History diabetes Medical History thyroid Surgical History appendix Surgical History gallbladder Surgical History eyes Surgical History hip Surgical History MRI on back and pelvis 06/08 Hospitalization History surgeries Hospitalization History [facility] by hanging 06/14/2016 Hospitalization History [facility] 01/30/2018-02/10/2008 Type Description Date Medical History diabetes Medical History thyroid Surgical History appendix Surgical History gallbladder Surgical History eyes Surgical History hip Surgical History MRI on back and pelvis 06/08 Hospitalization History surgeries Hospitalization History [facility] tt[facility] by hanging 06/14/2016 Hospitalization History [facility] 01/30/2018-02/10/2008 Hospitalization History [facility] cutting/SI 05/04/18-05/09/18 Type Description Date Medical History diabetes Medical History thyroid Medical History Schizoaffective diso rder, depressive type Medical History Borderline personali ty disorder Medical History High risk medication use Medical History Attention deficit hy peractivity disorder (ADHD), inattentive type, mild Medical History Posttraumatic stress disorder Medical History Generalized anxiety disorder Medical History eczema Surgical History appendix Surgical History gallbladder Surgical History eyes Surgical History hip Surgical History MRI on back and pelvis 06/08 Hospitalization History surgeries Hospitalization History [facility] by hanging 06/14/2016 Hospitalization History [facility] 01/30/2018-02/10/2008 [facility] 05/04/18-05/09/18 UNRECOGNIZED CONTENT PROVIDED BELOW FOR UNRECOGNIZED SECTION REASON FOR VISIT f/u-HUI garciaappointmentRefill requestmed refillSI/ODMedication question f /u-[place] [facility] intake f/u----DBennettRNmedicationmedicationMedication refill requestRash- ER last night, not sent home with anything. [facility] has decreased meds to be on the safe side JStrasserRNmedicationReque sts return call f/u- haja rebollar, rshcxnasCDI-KjoNNJ-IdqZMV-NxaLDG-NojUPE-AumAU E-CulGKA-GxmZPS-WwnLUL-VkfHVP-PxrDUA-SgeEVX-JwaYUH-RvgYVK-HzzQRX-MziGRL-PjwFBL-M reVWZ-TfzPIR-YwlUBF-NqjRUP-YvhEBB-BghMFH-VcgSWQ-AgdJVM-AntZNH-PmfQRZ-FhoSMY-DguB BG-IuhOYJ-OhuROX-MigEMR-MigBH f/u- haja rebollar, AIMS and labs
--- OUTSIDE RECORDS SUMMARY | 2020-04-04 01:40 | XMS REPORT | Clinical Summary ---
Author Author [facility] Address Unknown Phone Unavailable Care Team Providers Care Functional Mental Disability Teacher Name Role Phone Patrick Ryan MD PCP Source Comments Some departments are not documenting in the electronic medical record. If you d o not see the information that you expected, contact Release of Information in [facility] [employer] department at [phone] for further assistan ce in locating additional records.[facility] Allergies Comments Active Allergy Reactions Severity Noted [...] Health Maintenance Due Date Last Done Comments MEDICARE ANNUAL WELLNESS 1981 VISIT HIV SCREENING 1996 DTAP/TDAP VACCINES (1 - 1999 Tdap) HEPATITIS C SCREENING 1999 PHYSICAL (COMPREHENSIVE) 1999 EXAM CERVICAL CANCER SCREENING 2002 INFLUENZA VACCINE 07/24/2020 Results Not on filefrom Last 3 Months Insurance Type Payer Benefit Subscriber ID Effective Phone Address Plan / Dates Group Medicare MEDICARE MEDICARE xxxxxxxxxx 2007- PART A AND Present B Medicaid UHC MEDICAID [place] UHC xxxxxxxxxxx 2012- [facility] Present PLAN [id number] Advance Directives 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
--- OUTSIDE RECORDS SUMMARY | 2020-04-04 01:41 | XMS REPORT ---
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 39343225 Problem Primary insomnia F51.01 Active 397 2004 Problem Gastroesophageal reflux disease without esophagitis K21.9 Active 997094306 Problem Posttraumatic stress disorder F43.10 Active 90550768 Problem High risk medication use Z79.899 Activ e 096065374 Problem Borderline personality disorder F60.3 Active 45879204 Problem Schizoaffective disorder, depressive type F25.1 Active [id number] ALLERGIES No Information ENCOUNTERS Encounter Location Date Diagnosis [facility] [address] [id number] [address] [place] [phone] Mar, [facility] [address] [id number] [address] [place] [phone] February, Posttraumatic stress disorde r F43.10 ; Attention deficit hyperactivity disorder (ADHD), inattentive type, 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 ; Borderline personality disorder F60.3 ; Schizoaffective disorder, depressive type F25.1 and Primary insomnia F51.01 [facility] [address] [id number] [address] [place] [address] February, Well woman exam Z01.419 [facility] [address] [id number] [address] [place] [phone] Jan, Posttraumatic stress disorde r F43.10 [facility] [address] [id number] [address] [place] [address] Jan, Heartburn R12 and Gastroesop hageal reflux disease without esophagitis K21.9 [place] [id number] [facility] [id number] [address] [place] [address] Jan, Posttraumatic stress disorde r F43.10 ; Attention deficit hyperactivity disorder (ADHD), inattentive type, 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 ; Borderline personality disorder F60.3 ; Schizoaffective disorder, depressive type F25.1 and Primary insomnia F51.01 [place] [address] [address] [facility] [id number] [address] [place] [phone] 16 Jan, 2020 [place] [address] [address] [facility] [id number] [address] [place] [phone] Jan, [place] [address] [address] [facility] [id number] [address] [place] [address] Jan, [place] [address] [address] [facility] [id number] [address] [place] [phone] Jan, Posttraumatic stress disorde r F43.10 ; Attention deficit hyperactivity disorder (ADHD), inattentive type, 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 ; Borderline personality disorder F60.3 and Schizoaffective disorder, depressive type F25.1 [place] [address] [address] [facility] [id number] [address] [place] [address] Dec, Paranoid schizophrenia F20.0 ; Attention deficit hyperactivity disorder (ADHD), inattentive type, 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 ; Posttraumatic stress disorder F43.10 and Borderline personality disorder F60.3 [place] [address] [address] [facility] [id number] [address] [place] [phone] Nov, Paranoid schizophrenia F20.0 ; Attention deficit hyperactivity disorder (ADHD), inattentive type, 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 ; Posttraumatic stress disorder F43.10 and Borderline personality disorder F60.3 [place] [address] [address] [facility] [id number] [address] [place] [phone] Nov, [place] [address] [address] [facility] [id number] [address] [place] [address] Oct, Paranoid schizophrenia F20.0 ; Attention deficit hyperactivity disorder (ADHD), inattentive type, 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 ; Posttraumatic stress disorder F43.10 and Borderline personality disorder F60.3 [facility] [address] [facility] [id number] [address] [place] [phone] Oct, [facility] [address] [facility] [id number] [address] [place] [address] Sep, Paranoid schizophrenia F20.0 ; Attention deficit hyperactivity disorder (ADHD), inattentive type, 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 ; Posttraumatic stress disorder F43.10 and Borderline personality disorder F60.3 [facility] [address] [facility] [id number] [address] [place] [phone] Aug, Paranoid schizophrenia F20.0 ; Attention deficit hyperactivity disorder (ADHD), inattentive type, 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 ; Posttraumatic stress disorder F43.10 and Borderline personality disorder F60.3 [facility] [address] [facility] [id number] [address] [place] [phone] Aug, [facility] [address] [facility] [id number] [address] [place] [address] Aug, Acute bronchitis, unspecifie d organism J20.9 [facility] [address] [facility] [id number] [address] [place] [address] Aug, [facility] [address] [facility] [id number] [address] [place] [phone] Aug, [facility] [address] [facility] [id number] [address] [place] [address] Jul, Paranoid schizophrenia F20.0 ; Attention deficit hyperactivity disorder (ADHD), inattentive type, 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 ; Posttraumatic stress disorder F43.10 and Borderline personality disorder F60.3 [facility] [address] [facility] [id number] [address] [place] [phone] Jul, [facility] [address] [facility] [id number] [address] [place] [address] Jun, Paranoid schizophrenia F20.0 ; 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 ; Attention deficit hyperactivity disorder (ADHD), inattentive type, 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 ; Posttraumatic stress disorder F43.10 and Borderline personality disorder F60.3 [facility] [address] [id number] [address] [place] [address] Jun, Paranoid schizophrenia F20.0 ; Attention deficit hyperactivity disorder (ADHD), inattentive type, 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 ; Posttraumatic stress disorder F43.10 ; Borderline personality disorder F60.3 and 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 [facility] [address] [id number] [address] [place] [address] Apr, Paranoid schizophrenia F20.0 ; Posttraumatic stress disorder F43.10 ; Attention deficit hyperactivity disorder (ADHD), inattentive type, 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 and Borderline personality disorder F60.3 [facility] [address] [id number] [address] [place] [address] Apr, Paranoid schizophrenia F20.0 [facility] [address] [id number] [address] [place] [address] Apr, Paranoid schizophrenia F20.0 ; Posttraumatic stress disorder F43.10 ; Attention deficit hyperactivity disorder (ADHD), inattentive type, 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 and Borderline personality disorder F60.3 [facility] [address] [id number] [address] [place] [phone] Mar, Paranoid schizophrenia F20.0 [facility] [address] [id number] [address] [place] [address] Mar, Paranoid schizophrenia F20.0 ; Posttraumatic stress disorder F43.10 ; Attention deficit hyperactivity disorder (ADHD), inattentive type, 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 and Borderline personality disorder F60.3 [facility] [address] [id number] [address] [place] [phone] February, Paranoid schizophrenia F20.0 [facility] [address] [id number] [address] [place] [phone] Jan, Paranoid schizophrenia F20.0 ; Posttraumatic stress disorder F43.10 ; Attention deficit hyperactivity disorder (ADHD), inattentive type, 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 and Borderline personality disorder F60.3 [facility] [address] [facility] [id number] [address] [place] [phone] Dec, Paranoid schizophrenia F20.0 ; Posttraumatic stress disorder F43.10 ; Attention deficit hyperactivity disorder (ADHD), inattentive type, 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 and Borderline personality disorder F60.3 [facility] [address] [facility] [id number] [address] [place] [phone] Dec, Paranoid schizophrenia F20.0 ; Posttraumatic stress disorder F43.10 ; Attention deficit hyperactivity disorder (ADHD), inattentive type, 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 and Borderline personality disorder F60.3 [facility] [address] [facility] [id number] [address] [place] [address] Oct, Paranoid schizophrenia F20.0 ; Posttraumatic stress disorder F43.10 ; Attention deficit hyperactivity disorder (ADHD), inattentive type, 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 and Borderline personality disorder F60.3 [facility] [address] [facility] [id number] [address] [place] [address] Oct, Paranoid schizophrenia F20.0 ; Posttraumatic stress disorder F43.10 ; Attention deficit hyperactivity disorder (ADHD), inattentive type, 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 and Borderline personality disorder F60.3 [facility] [address] [facility] [id number] [address] [place] [phone] Aug, [facility] [address] [facility] [id number] [address] [place] [address] Aug, Paranoid schizophrenia F20.0 ; Posttraumatic stress disorder F43.10 ; Attention deficit hyperactivity disorder (ADHD), inattentive type, 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 and Borderline personality disorder F60.3 [facility] [address] [facility] [id number] [address] [place] [phone] Jul, Dry skin dermatitis L85.3 [facility] [address] [id number] [address] [place] [address] Jul, [facility] [address] [id number] [address] [place] [address] Jul, Paranoid schizophrenia F20.0 [facility] [address] [id number] [address] [place] [address] May, Paranoid schizophrenia F20.0 ; Posttraumatic stress disorder F43.10 ; Attention deficit hyperactivity disorder (ADHD), inattentive type, 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 and Borderline personality disorder F60.3 [facility] [address] [id number] [address] [place] [phone] May, [facility] [address] [id number] [address] [place] [address] May, Paranoid schizophrenia F20.0 [facility] [address] [id number] [address] [place] [address] May, Paranoid schizophrenia F20.0 ; Posttraumatic stress disorder F43.10 ; Attention deficit hyperactivity disorder (ADHD), inattentive type, 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 and Borderline personality disorder F60.3 [facility] [address] [id number] [address] [place] [address] Apr, [facility] [address] [id number] [address] [place] [address] Apr, Paranoid schizophrenia F20.0 ; Posttraumatic stress disorder F43.10 ; Attention deficit hyperactivity disorder (ADHD), inattentive type, 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 and Borderline personality disorder F60.3 [facility] [address] [id number] [address] [place] [address] Apr, [facility] [address] [id number] [address] [place] [address] Apr, Schizoaffective disorder, de pressive type F25.1 and Borderline personality disorder F60.3 [facility] [address] [id number] [address] [place] [phone] Apr, Paranoid schizophrenia F20.0 ; Posttraumatic stress disorder F43.10 ; Attention deficit hyperactivity disorder (ADHD), inattentive type, 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 and Borderline personality disorder F60.3 [facility] [address] [id number] [address] [address] Apr, [facility] [address] [id number] [address] [place] [address] Apr, Paranoid schizophrenia F20.0 ; Posttraumatic stress disorder F43.10 ; Attention deficit hyperactivity disorder (ADHD), inattentive type, 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 and Borderline personality disorder F60.3 [facility] [address] [id number] [address] [place] [address] Apr, [facility] [address] [id number] [address] [place] [address] Mar, Paranoid schizophrenia F20.0 [facility] [address] [id number] [address] [place] [address] Mar, [facility] [address] [id number] [address] [place] [address] Mar, Paranoid schizophrenia F20.0 ; Posttraumatic stress disorder F43.10 ; Attention deficit hyperactivity disorder (ADHD), inattentive type, 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 and Borderline personality disorder F60.3 [facility] [address] [id number] [address] [place] [address] February, Paranoid schizophrenia F20.0 [facility] [address] [id number] [address] [place] [phone] February, Paranoid schizophrenia F20.0 ; Posttraumatic stress disorder F43.10 ; Attention deficit hyperactivity disorder (ADHD), inattentive type, 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 and Borderline personality disorder F60.3 [facility] [address] [id number] [address] [place] [phone] February, Paranoid schizophrenia F20.0 ; Posttraumatic stress disorder F43.10 ; Attention deficit hyperactivity disorder (ADHD), inattentive type, 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 and Borderline personality disorder F60.3 [facility] [address] [id number] [address] [place] [address] February, [facility] [address] [id number] [address] [place] [phone] February, Paranoid schizophrenia F20.0 [facility] [address] [id number] [address] [place] [address] February, Paranoid schizophrenia F20.0 [facility] [address] [id number] [address] [place] [address] February, Paranoid schizophrenia F20.0 ; Posttraumatic stress disorder F43.10 ; Attention deficit hyperactivity disorder (ADHD), inattentive type, 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 and Borderline personality disorder F60.3 [facility] [address] [id number] [address] [place] [phone] Jan, Paranoid schizophrenia F20.0 ; Posttraumatic stress disorder F43.10 ; Attention deficit hyperactivity disorder (ADHD), inattentive type, 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 and Borderline personality disorder F60.3 [facility] [address] [id number] [address] [place] [phone] Jan, Paranoid schizophrenia F20.0 [facility] [address] [id number] [address] [place] [phone] Jan, Paranoid schizophrenia F20.0 [facility] [address] [facility] [id number] [address] [place] [phone] Jan, Paranoid schizophrenia F20.0 ; Posttraumatic stress disorder F43.10 ; Attention deficit hyperactivity disorder (ADHD), inattentive type, 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 and Borderline personality disorder F60.3 [facility] [address] [id number] [address] [place] [address] Dec, [facility] [address] [id number] [address] [place] [address] Nov, Paranoid schizophrenia F20.0 ; Posttraumatic stress disorder F43.10 ; Attention deficit hyperactivity disorder (ADHD), inattentive type, 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 and Borderline personality disorder F60.3 [facility] [address] [id number] [address] [place] [address] Nov, [facility] [address] [id number] [address] [place] [address] Oct, Paranoid schizophrenia F20.0 [facility] [address] [id number] [address] [place] [address] Oct, Paranoid schizophrenia F20.0 ; Posttraumatic stress disorder F43.10 ; Attention deficit hyperactivity disorder (ADHD), inattentive type, 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 ; Borderline personality disorder F60.3 and 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 [facility] [address] [id number] [address] [place] [phone] Oct, [facility] [address] [id number] [address] [place] [address] Oct, [facility] [address] [id number] [address] [place] [address] Sep, [facility] [address] [id number] [address] [place] [address] Sep, Paranoid schizophrenia F20.0 ; Posttraumatic stress disorder F43.10 ; Attention deficit hyperactivity disorder (ADHD), inattentive type, 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 and Borderline personality disorder F60.3 [facility] [address] [id number] [address] [place] [address] Sep, Paranoid schizophrenia F20.0 [facility] [address] [id number] [address] [place] [phone] Aug, Paranoid schizophrenia F20.0 ; Posttraumatic stress disorder F43.10 ; Attention deficit hyperactivity disorder (ADHD), inattentive type, 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 and Borderline personality disorder F60.3 [facility] [address] [id number] [address] [place] [address] Aug, Paranoid schizophrenia F20.0 ; Posttraumatic stress disorder F43.10 ; Attention deficit hyperactivity disorder (ADHD), inattentive type, 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 and Borderline personality disorder F60.3 [facility] [address] [id number] [address] [place] [phone] Aug, [facility] [address] [id number] [address] [place] [address] Jul, Paranoid schizophrenia F20.0 ; Posttraumatic stress disorder F43.10 ; Attention deficit hyperactivity disorder (ADHD), inattentive type, 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 and Borderline personality disorder F60.3 [facility] [address] [id number] [address] [place] [address] Jul, Paranoid schizophrenia F20.0 [facility] [address] [facility] [id number] [address] [place] [address] Jul, Paranoid schizophrenia F20.0 ; Posttraumatic stress disorder F43.10 ; Attention deficit hyperactivity disorder (ADHD), inattentive type, 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 and Borderline personality disorder F60.3 [facility] [address] [id number] [address] [place] [address] Jun, Paranoid schizophrenia F20.0 ; Posttraumatic stress disorder F43.10 ; Attention deficit hyperactivity disorder (ADHD), inattentive type, 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 and Borderline personality disorder F60.3 [facility] [address] [facility] [id number] [address] [place] [phone] May, Other group home (current) dr gabriel parra Z79.899 [facility] [address] [id number] [address] [place] [address] May, [facility] [address] [id number] [address] [place] [phone] May, [facility] [address] [facility] [id number] [address] [place] [address] May, Attention deficit hyperactiv ity disorder (ADHD), inattentive type, mild F90.0 [facility] [address] [facility] [id number] [address] [place] [address] May, [facility] [address] [facility] [id number] [address] [place] [address] May, Attention deficit hyperactiv ity disorder (ADHD), inattentive type, mild F90.0 [facility] [address] [id number] [address] [place] [address] May, Paranoid schizophrenia F20.0 ; Posttraumatic stress disorder F43.10 ; Attention deficit hyperactivity disorder (ADHD), inattentive type, 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 and Other group home (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 Z79.899 [facility] [address] [facility] [id number] [address] [place] [address] Apr, Paranoid schizophrenia F20.0 [facility] [address] [facility] [id number] [address] [place] [address] Apr, Paranoid schizophrenia F20.0 ; Posttraumatic stress disorder F43.10 and Attention deficit hyperactivity disorder (ADHD), inattentive type, 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 [facility] [address] [facility] [id number] [address] [place] [phone] February, [facility] [address] [facility] [id number] [address] [place] [address] February, Paranoid schizophrenia F20.0 ; Posttraumatic stress disorder F43.10 and Attention deficit hyperactivity disorder (ADHD), inattentive type, 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 [facility] [address] [facility] [id number] [address] [place] [address] February, Paranoid schizophrenia F20.0 ; Posttraumatic stress disorder F43.10 and Attention deficit hyperactivity disorder (ADHD), inattentive type, 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 [facility] [address] [facility] [id number] [address] [place] [address] Jan, Paranoid schizophrenia F20.0 ; Posttraumatic stress disorder F43.10 and Attention deficit hyperactivity disorder (ADHD), inattentive type, 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 [facility] [address] [id number] [address] [place] [address] [id number] Dec, Dental examination Z01.20 [facility] [address] [id number] [address] [place] [id number] Nov, Dental examination Z01.20 [facility] [address] [id number] [address] [place] [address] [id number] Nov, Dental examination Z01.20 [facility] [address] [id number] [address] [place] [address] [id number] Nov, 2016 Dental caries K02.9 [facility] [address] [facility] [id number] [address] [place] [phone] 13 Nov, 2016 High risk medication use Z79 .899 [facility] [address] [facility] [id number] [address] [place] [phone] Nov, Paranoid schizophrenia F20.0 ; Posttraumatic stress disorder F43.10 ; Attention deficit hyperactivity disorder (ADHD), inattentive type, 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 and Borderline personality disorder in adult F60.3 [facility] [address] [id number] [address] [place] [address] [id number] Oct, Dental caries K02.9 [facility] [address] [facility] [id number] [address] [place] [phone] Sep, Paranoid schizophrenia F20.0 ; Posttraumatic stress disorder F43.10 and Attention deficit hyperactivity disorder (ADHD), inattentive type, 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 [facility] [address] [facility] [id number] [address] [place] [phone] Aug, Paranoid schizophrenia F20.0 ; Posttraumatic stress disorder F43.10 and Attention deficit hyperactivity disorder (ADHD), inattentive type, 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 [facility] [address] [facility] [id number] [address] [place] [address] Aug, Strep throat J02.0 and Cough R05 [facility] [address] [facility] [id number] [address] [place] [address] Aug, [facility] [address] [place] [place] [id number] [address] [place] [address] Jul, Paranoid schizophrenia F20.0 ; Posttraumatic stress disorder F43.10 and Attention deficit hyperactivity disorder (ADHD), inattentive type, 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 [facility] [address] [id number] [address] [place] [address] Jul, [facility] [address] [id number] [address] [place] [address] Jun, Paranoid schizophrenia F20.0 ; Posttraumatic stress disorder F43.10 and Attention deficit hyperactivity disorder (ADHD), inattentive type, 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 [facility] [address] [id number] [address] [place] [id number] Jun, Dental examination Z01.20 [facility] [address] [id number] [address] [place] [address] Jun, [facility] [address] [id number] [address] [place] [address] May, Paranoid schizophrenia F20.0 [facility] [address] [id number] [address] [place] [address] May, Paranoid schizophrenia F20.0 ; Posttraumatic stress disorder F43.10 and Attention deficit hyperactivity disorder (ADHD), inattentive type, 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 [facility] [address] [id number] [address] [place] [address] May, [facility] [address] [id number] [address] [place] [address] May, Paranoid schizophrenia F20.0 [facility] [address] [id number] [address] [place] [address] May, [facility] [address] [id number] [address] [place] [address] May, Paranoid schizophrenia F20.0 [facility] [address] [id number] [address] [place] [address] May, Schizoaffective disorder, un specified F25.9 [facility] [address] [id number] [address] [place] [address] May, Schizoaffective disorder, un specified F25.9 [facility] [address] [id number] [address] [place] [address] May, [facility] [address] [id number] [address] [place] [address] May, Paranoid schizophrenia F20.0 [facility] [address] [id number] [address] [place] [address] May, Paranoid schizophrenia F20.0 ; Posttraumatic stress disorder F43.10 and Attention deficit hyperactivity disorder (ADHD), inattentive type, 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 [facility] [address] [id number] [address] [place] [address] Mar, [facility] [address] [id number] [address] [place] [address] Mar, Paranoid schizophrenia F20.0 ; Posttraumatic stress disorder F43.10 and Attention deficit hyperactivity disorder (ADHD), inattentive type, 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 [facility] [address] [id number] [address] [place] [address] Mar, Paranoid schizophrenia F20.0 [facility] [address] [id number] [address] [place] [address] Mar, Paranoid schizophrenia F20.0 ; Attention deficit hyperactivity disorder (ADHD), inattentive type, 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 and Posttraumatic stress disorder F43.10 [facility] [address] [id number] [address] [place] [address] Mar, [facility] [address] [id number] [address] [place] [address] Mar, Paranoid schizophrenia F20.0 ; Posttraumatic stress disorder F43.10 and Attention deficit hyperactivity disorder (ADHD), inattentive type, 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 [facility] [address] [id number] [address] [place] [address] February, [facility] [address] [id number] [address] [place] [address] February, [facility] [address] [id number] [address] [place] [address] February, [facility] [address] [id number] [address] [place] [address] February, [facility] [address] [id number] [address] [place] [address] Jan, Paranoid schizophrenia F20.0 [facility] [address] [id number] [address] [place] [address] [id number] Jan, Dental examination Z01.20 [facility] [address] [id number] [address] [place] [address] [id number] Jan, Dental caries K02.9 [facility] [address] [id number] [address] [place] [address] [id number] Jan, Dental examination Z01.20 [facility] [id number] [place] [address] [id number] Dec, Encounter for dental examina tion Z01.20 [facility] [address] [id number] [address] [place] [address] Dec, Paranoid schizophrenia F20.0 [facility] [address] [id number] [address] [place] [address] [id number] Dec, Dental examination Z01.20 [facility] [address] [id number] [address] [place] [address] Dec, [facility] [address] [id number] [address] [place] [address] Dec, Paranoid schizophrenia F20.0 ; Posttraumatic stress disorder F43.10 and Attention deficit hyperactivity disorder (ADHD), inattentive type, 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 [facility] [address] [id number] [address] [place] [address] Nov, Schizoaffective disorder, un specified F25.9 [facility] [address] [id number] [address] [place] [address] Oct, Paranoid schizophrenia F20.0 [facility] [address] [id number] [address] [place] [address] Oct, [facility] [address] [facility] [id number] [address] [place] [address] Sep, Paranoid schizophrenia F20.0 ; Posttraumatic stress disorder F43.10 and Attention deficit hyperactivity disorder (ADHD), inattentive type, 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 [facility] [address] [id number] [address] [place] [address] Sep, [facility] [address] [id number] [address] [place] [address] Sep, Paranoid schizophrenia F20.0 ; Posttraumatic stress disorder F43.10 and Attention deficit hyperactivity disorder (ADHD), inattentive type, 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 [facility] [address] [id number] [address] [place] [address] Aug, Paranoid schizophrenia F20.0 [facility] [address] [id number] [address] [place] [address] Aug, [facility] [address] [id number] [address] [place] [address] Aug, Posttraumatic stress disorde r F43.10 ; Paranoid schizophrenia F20.0 and Attention deficit hyperactivity disorder (ADHD), inattentive type, 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 [facility] [address] [id number] [address] [place] [address] Jul, Bipolar disorder, unspecifie d F31.9 [facility] [address] [id number] [address] [place] [address] Jul, [facility] [address] [facility] [id number] [address] [place] [address] Jun, [facility] [address] [id number] [address] [place] [address] Jun, Schizoaffective disorder, ch ronic 295.72 ; Posttraumatic stress disorder 309.81 and Attention deficit disorder of childhood without mention of hyperactivity 314.00 [facility] [address] [id number] [address] [place] [address] May, [facility] [address] [id number] [address] [place] [address] May, [facility] [address] [id number] [address] [place] [address] May, Schizoaffective disorder, ch ronic 295.72 ; Posttraumatic stress disorder 309.81 ; Attention deficit disorder of childhood without mention of hyperactivity 314.00 and Bipolar disorder, unspecified 296.80 [facility] [address] [id number] [address] [place] [address] Apr, Schizoaffective disorder, ch ronic 295.72 [facility] [address] [id number] [address] [place] [address] Apr, [facility] [address] [id number] [address] [place] [address] Apr, Schizoaffective disorder, ch ronic 295.72 ; Posttraumatic stress disorder 309.81 and Attention deficit disorder of childhood without mention of hyperactivity 314.00 [facility] [address] [id number] [address] [place] [address] Mar, Disorganized schizophrenia, 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 [facility] [address] [id number] [address] [place] [address] Mar, [facility] [address] [id number] [address] [place] [address] Mar, [facility] [address] [facility] [id number] [address] [place] [address] Mar, [facility] [address] [id number] [address] [place] [address] Mar, [facility] [address] [id number] [address] [place] [address] February, Schizoaffective disorder, ch ronic 295.72 [facility] [address] [id number] [address] [place] [address] February, [facility] [address] [id number] [address] [place] [address] February, Attention 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 ; Posttraumatic stress disorder 309.81 and Schizoaffective disorder, chronic 295.72 [facility] [address] [id number] [address] [place] [address] Jan, [facility] [address] [id number] [address] [place] [address] Jan, [facility] [address] [id number] [address] [place] [address] Jan, [facility] [address] [id number] [address] [place] [address] Dec, [facility] [address] [id number] [address] [place] [address] Dec, [facility] [address] [id number] [address] [place] [address] Dec, [facility] [address] [id number] [address] [place] [address] Dec, [facility] [address] [id number] [address] [place] [address] Dec, [facility] [address] [id number] [address] [place] [address] Dec, [facility] [address] [id number] [address] [place] [address] Dec, [facility] [address] [id number] [address] [place] [address] Dec, [facility] [address] [id number] [address] [place] [address], [place] [address] Nov, [facility] [address] [id number] [address] [place] [address], [place] [address] Nov, [facility] [address] [id number] [address] [place] [address], [place] [address] Nov, [facility] [address] [id number] [address] [place] [address], [place] [address] Nov, [facility] [address] [id number] [address] [place] [address], [place] [address] Nov, [facility] [address] [id number] [address] [place] [address], [place] [address] Nov, [facility] [address] [id number] [address] [place] [address], [place] [address] Nov, [facility] [address] [id number] [address] [place] [address], [place] [address] Nov, [facility] [address] [id number] [address] [place] [address], [place] [address] Nov, [facility] [address] [id number] [address] [place] [address], [place] [address] Nov, [facility] [address] [id number] [address] [place] [address], [place] [address] Oct, [facility] [address] [id number] [address] [place] [address], [place] [address] Oct, [facility] [address] [id number] [address] [place] [address], [place] [address] Oct, [facility] [address] [id number] [address] [place] [address], [place] [address] Oct, [facility] [address] [id number] [address] [place] [address], [place] [address] Oct, [facility] [address] [id number] [address] [place] [address], [place] [address] 13 Oct, 2014 [facility] [address] [id number] [address] [place] [address], [place] [address] Oct, [facility] [address] [id number] [address] [place] [address], [place] [address] 17 Sep, 2014 [facility] [address] [id number] [address] [place] [address], [place] [address] 17 Sep, 2014 [facility] [address] [id number] [address] [place] [address], [place] [address] Sep, [facility] [address] [id number] [address] [place] [address], [place] [address] Sep, [facility] [address] [id number] [address] [place] [address], [place] [address] Aug, [facility] [address] [id number] [address] [place] [address], [place] [address] Aug, [facility] [address] [id number] [address] [place] [address], [place] [address] Aug, [facility] [address] [id number] [address] [place] [address], [place] [address] Aug, [facility] [address] [id number] [address] [place] [address], [place] [address] Aug, [facility] [address] [id number] [address] [place] [address], [place] [address] Aug, [facility] [address] [id number] [address] [place] [address], [place] [address] Jul, [facility] [address] [id number] [address] [place] [address], [place] [address] Jul, [facility] [address] [id number] [address] [place] [address], [place] [address] Jul, [facility] [address] [id number] [address] [place] [address], [place] [address] Jul, [facility] [address] [id number] [address] [place] [address], [place] [address] 15 Jul, 2014 [facility] [address] [id number] [address] [place] [address], [place] [address] 15 Jul, 2014 [facility] [address] [id number] [address] [place] [address], [place] [address] 27 Jun, 2013 [facility] [address] [id number] [address] [place] [address], [place] [address] 27 Jun, 2013 [facility] [address] [id number] [address] [place] [address], [place] [address] 26 Jun, 2013 [facility] [address] [id number] [address] [place] [address], [place] [address] 26 Jun, 2013 [facility] [address] [id number] [address] [place] [address], [place] [address] 26 Jun, 2013 [facility] [address] [id number] [address] [place] [address], [place] [address] 26 Jun, 2013 [facility] [address] [id number] [address] [place] [address], [place] [address] 16 Jun, 2013 [facility] [address] [id number] [address] [place] [address], [place] [address] 16 Jun, 2013 [facility] [address] [id number] [address] [place] [address], [place] [address] 16 Jun, 2013 [facility] [address] [id number] [address] [place] [address], [place] [address] 16 Jun, 2013 [facility] [address] [id number] [address] [place] [address], [place] [address] 04 Jun, 2014 [facility] [address] [id number] [address] [place] [address], [place] [address] May, [facility] [address] [id number] [address] [place] [address], [place] [address] May, [facility] [address] [id number] [address] [place] [address], [place] [address] May, [facility] [address] [id number] [facility] [place] [address] May, [facility] [address] [id number] [address] [place] [address], [place] [address] May, [facility] [address] [id number] [address] [place] [address], [place] [address] May, [facility] [address] [id number] [address] [place] [address], [place] [address] May, [facility] [address] [id number] [address] [place] [address], [place] [address] May, [facility] [address] [id number] [address] [place] [address], [place] [address] May, [facility] [address] [id number] [address] [place] [address], [place] [address] May, [facility] [address] [id number] [address] [place] [address], [place] [address] Apr, [facility] [address] [id number] [address] [place] [address], [place] [address] Apr, [facility] [address] [id number] [address] [place] [address], [place] [address] Apr, [facility] [address] [id number] [address] [place] [address], [place] [address] Apr, [facility] [address] [id number] [address] [place] [address], [place] [address] Apr, [facility] [address] [id number] [address] [place] [address], [place] [address] Apr, [facility] [address] [id number] [address] [place] [address], [place] [address] Apr, [facility] [address] [id number] [address] [place] [address], [place] [address] Apr, [facility] [address] [id number] [facility] [address] 15 Apr, 2014 [facility] [address] [id number] [facility] [place] [address] Apr, [facility] [address] [id number] [facility] [place] [address] Mar, [facility] [address] [id number] [address] [place] [address], [place] [address] Mar, [facility] [address] [id number] [address] [place] [address], [place] [address] Mar, [facility] [address] [id number] [address] [place] [address], [place] [address] 24 Mar, 2014 [facility] [address] [id number] [address] [place] [address], [place] [address] Mar, [facility] [address] [id number] [address] [place] [address], [place] [address] 18 Mar, 2014 [facility] [address] [id number] [address] [place] [address], [place] [address] 18 Mar, 2014 [facility] [address] [id number] [address] [place] [address], [place] [address] 16 Mar, 2014 [facility] [address] [id number] [address] [place] [address], [place] [address] 16 Mar, 2014 [facility] [address] [id number] [address] [place] [address], [place] [address] Mar, [facility] [address] [id number] [address] [place] [address], [place] [address] 13 Mar, 2014 [facility] [address] [id number] [address] [place] [address], [place] [address] 11 Mar, 2014 [facility] [address] [id number] [address] [place] [address], [place] [address] 11 Mar, 2014 [facility] [address] [id number] [address] [place] [address], [place] [address] Mar, [facility] [address] [id number] [facility] [address] Mar, [facility] [address] [id number] [address] [place] [address], [place] [address] Mar, [facility] [address] [id number] [address] [place] [address], [place] [address] Mar, [facility] [address] [id number] [address] [place] [address], [place] [address] Mar, [facility] [address] [id number] [address] [place] [address], [place] [address] Mar, [facility] [address] [id number] [address] [place] [address], [place] [address] Mar, [facility] [address] [id number] [address] [place] [address], [place] [address] February, [facility] [address] [id number] [address] [place] [address], [place] [address] February, [facility] [address] [id number] [address] [place] [address], [place] [address] February, [facility] [address] [id number] [address] [place] [address], [place] [address] February, [facility] [address] [id number] [address] [place] [address], [place] [address] February, [facility] [address] [id number] [address] [place] [address], [place] [address] February, [facility] [address] [id number] [address] [place] [address], [place] [address] February, [facility] [address] [id number] [address] [place] [address], [place] [address] February, [facility] [address] [id number] [address] [place] [address], [place] [address] February, [facility] [address] [id number] [address] [place] [address], [place] [address] February, [facility] [address] [id number] [address] [place] [address], [place] [address] February, [facility] [address] [id number] [address] [place] [address], [place] [address] February, [facility] [address] [id number] [address] [place] [address], [place] [address] February, [facility] [address] [id number] [address] [place] [address], [place] [address] February, [facility] [address] [id number] [address] [place] [address], [place] [address] February, [facility] [address] [id number] [address] [place] [address], [place] [address] February, [facility] [address] [id number] [address] [place] [address], [place] [address] February, [facility] [address] [id number] [address] [place] [address], [place] [address] February, [facility] [address] [id number] [address] [place] [address], [place] [address] February, [facility] [address] [id number] [address] [place] [address], [place] [address] February, [facility] [address] [id number] [address] [place] [address], [place] [address] February, [facility] [address] [id number] [address] [place] [address], [place] [address] Jan, [facility] [address] [id number] [address] [place] [address], [place] [address] Jan, [facility] [address] [id number] [address] [place] [address], [place] [address] Jan, [facility] [address] [id number] [address] [place] [place] [address] [address] Jan, [facility] [address] [id number] [address] [place] [address], [place] [address] 18 Jan, 2014 [facility] [address] [id number] [address] [place] [address], [place] [address] 18 Jan, 2014 [facility] [address] [id number] [address] [place] [address], [place] [address] 10 Jan, 2014 [facility] [address] [id number] [address] [place] [address], [place] [address] Jan, [facility] [address] [id number] [address] [place] [address], [place] [address] 21 Dec, 2013 [facility] [address] [id number] [address] [place] [address], [place] [address] 20 Dec, 2013 [facility] [address] [id number] [address] [place] [address], [place] [address] 20 Dec, 2013 [facility] [address] [id number] [address] [place] [address], [place] [address] 19 Dec, 2013 [facility] [address] [id number] [address] [place] [address], [place] [address] 19 Dec, 2013 [facility] [address] [id number] [address] [place] [address], [place] [address] 15 Dec, 2013 [facility] [address] [id number] [address] [place] [address], [place] [address] 15 Dec, 2013 [facility] [address] [id number] [address] [place] [address], [place] [address] 11 Dec, 2013 [facility] [address] [id number] [address] [place] [address], [place] [address] 10 Dec, 2013 [facility] [address] [id number] [address] [place] [address], [place] [address] 10 Dec, 2013 [facility] [address] [id number] [address] [place] [address], [place] [address] 18 Nov, 2013 [facility] [address] [id number] [address] [place] [address], [place] [address] Nov, [facility] [address] [id number] [address] [place] [address], [place] [address] Nov, [facility] [address] [id number] [address] [place] [address], [place] [address] Nov, [facility] [address] [id number] [address] [place] [address], [place] [address] Nov, [facility] [address] [id number] [address] [place] [address], [place] [address] Oct, [facility] [address] [id number] [address] [place] [address], [place] [address] Oct, [facility] [address] [id number] [address] [place] [address], [place] [address] Oct, [facility] [address] [id number] [address] [place] [address], [place] [address] Sep, [facility] [address] [id number] [address] [place] [address], [place] [address] Sep, [facility] [address] [id number] [address] [place] [address], [place] [address] Sep, [facility] [address] [id number] [address] [place] [address], [place] [address] Sep, [facility] [address] [id number] [address] [place] [address], [place] [address] Aug, [facility] [address] [id number] [address] [place] [address], [place] [address] Aug, [facility] [address] [id number] [address] [place] [address], [place] [address] Jul, [facility] [address] [id number] [address] [place] [address], [place] [address] Jul, [facility] [address] [id number] [address] [place] [address] Jul, [facility] [address] [id number] [address] [place] [address], [place] [address] Jul, [facility] [address] [id number] [address] [place] [address], [place] [address] Jul, [facility] [address] [id number] [address] [place] [address], [place] [address] Jun, [facility] [address] [id number] [address] [place] [address], [place] [address] 25 Jun, 2013 [facility] [address] [id number] [address] [place] [address], [place] [address] 19 Jun, 2013 [facility] [address] [id number] [address] [place] [address], [place] [address] 18 Jun, 2013 [facility] [address] [id number] [address] [place] [address], [place] [address] 16 Jun, 2013 [facility] [address] [id number] [address] [place] [address], [place] [address] 12 Jun, 2013 [facility] [address] [id number] [address] [place] [address], [place] [address] Jun, [facility] [address] [id number] [address] [place] [address], [place] [address] 30 May, 2013 [facility] [address] [id number] [address] [place] [address], [place] [address] May, [facility] [address] [id number] [address] [place] [address], [place] [address] Apr, [facility] [address] [id number] [address] [place] [address], [place] [address] Apr, [facility] [address] [id number] [address] [place] [address], [place] [address] Apr, [facility] [address] [id number] [address] [place] [address], [place] [address] Mar, [facility] [address] [id number] [address] [place] [address], [place] [address] Mar, [facility] [address] [id number] [address] [place] [address], [place] [address] February, [facility] [address] [id number] [address] [place] [address], [place] [address] February, [facility] [address] [id number] [address] [place] [address], [place] [address] February, [facility] [address] [id number] [address] [place] [address], [place] [address] February, [facility] [address] [id number] [address] [place] [address], [place] [address] Jan, [facility] [address] [id number] [address] [place] [address], [place] [address] Jan, [facility] [address] [id number] [address] [place] [address], [place] [address] Jan, [facility] [address] [id number] [address] [place] [address], [place] [address] Dec, [facility] [address] [id number] [address] [place] [address], [place] [address] Dec, [facility] [address] [id number] [address] [place] [address], [place] [address] Dec, [facility] [address] [id number] [address] [place] [address], [place] [address] Dec, [facility] [address] [id number] [address] [place] [address], [place] [address] Nov, [facility] [address] [id number] [address] [place] [address], [place] [address] Nov, [facility] [address] [id number] [address] [place] [address], [place] [address] Oct, [facility] [address] [id number] [address] [place] [address], [place] [address] Oct, [facility] [address] [id number] [address] [place] [address], [place] [address] Oct, [facility] [address] [id number] [address] [place] [address], [place] [address] Oct, [facility] [address] [id number] [address] [place] [address], [place] [address] Aug, [facility] [address] [id number] [address] [place] [address], [place] [address] Aug, [facility] [address] [id number] [address] [place] [address], [place] [address] Jun, [facility] [address] [id number] [address] [place] [address], [place] [address] May, [facility] [address] [id number] [address] [place] [address], [place] [address] May, [facility] [address] [id number] [address] [place] [address], [place] [address] Apr, [facility] [address] [id number] [address] [place] [address], [place] [address] Apr, [facility] [address] [id number] [address] [place] [address], [place] [address] Apr, [facility] [address] [id number] [address] [place] [address], [place] [address] Mar, [facility] [address] [id number] [address] [place] [address], [place] [address] Mar, [facility] [address] [id number] [address] [place] [address], [place] [address] Mar, [facility] [address] [id number] [address] [place] [address], [place] [address] Mar, [facility] [address] [id number] [address] [place] [address], [place] [address] Mar, [facility] [address] [id number] [address] [place] [address], [place] [address] February, [facility] [address] [id number] [address] [place] [address], [place] [address] February, [facility] [address] [id number] [address] [place] [address], [place] [address] February, [facility] [address] [id number] [address] [place] [address], [place] [address] February, [facility] [address] [id number] [address] [place] [address], [place] [address] February, [facility] [address] [id number] [address] [place] [address], [place] [address] February, [facility] [address] [id number] [address] [place] [address], [place] [address] February, [facility] [address] [id number] [address] [place] [address], [place] [address] Jan, [facility] [address] [id number] [address] [place] [address], [place] [address] Jan, [facility] [address] [id number] [address] [place] [address], [place] [address] 17 Jan, 2012 [facility] [address] [id number] [address] [place] [address], [place] [address] Jan, [facility] [address] [id number] [address] [place] [address], [place] [address] Jan, [facility] [address] [id number] [address] [place] [address], [place] [address] 04 Jan, 2012 [facility] [address] [id number] [address] [place] [address], [place] [address] 30 Dec, 2011 [facility] [address] [id number] [address] [place] [address], [place] [address] 24 Dec, 2011 [facility] [address] [id number] [address] [place] [address], [place] [address] Dec, [facility] [address] [id number] [address] [place] [address], [place] [address] 13 Dec, 2011 [facility] [address] [id number] [address] [place] [address], [place] [address] 06 Dec, 2011 [facility] [address] [id number] [address] [place] [address], [place] [address] 28 Nov, 2011 [facility] [address] [id number] [address] [place] [address], [place] [address] Nov, [facility] [address] [id number] [address] [place] [address], [place] [address] Nov, [facility] [address] [id number] [address] [place] [address], [place] [address] 14 Nov, 2011 [facility] [address] [id number] [address] [place] [address], [place] [address] Nov, [facility] [address] [id number] [address] [place] [address], [place] [address] Nov, [facility] [address] [id number] [address] [place] [address], [place] [address] Oct, [facility] [address] [id number] [address] [place] [address], [place] [address] Oct, [facility] [address] [id number] [address] [place] [address], [place] [address] Oct, [facility] [address] [id number] [address] [place] [address], [place] [address] Oct, [facility] [address] [id number] [address] [place] [address], [place] [address] Oct, [facility] [address] [id number] [address] [place] [address], [place] [address] Sep, [facility] [address] [id number] [address] [place] [address], [place] [address] Sep, [facility] [address] [id number] [address] [place] [address], [place] [address] Sep, [facility] [address] [id number] [address] [place] [address], [place] [address] 14 Sep, 2011 [facility] [address] [id number] [address] [place] [address], [place] [address] 14 Sep, 2011 [facility] [address] [id number] [address] [place] [address], [place] [address] 13 Sep, 2011 [facility] [address] [id number] [address] [place] [address], [place] [address] 12 Sep, 2011 [facility] [address] [id number] [address] [place] [address], [place] [address] 09 Sep, 2011 [facility] [address] [id number] [address] [place] [address], [place] [address] 05 Sep, 2011 [facility] [address] [id number] [address] [place] [address], [place] [address] 30 Aug, 2011 [facility] [address] [id number] [address] [place] [address], [place] [address] 30 Aug, 2011 [facility] [address] [id number] [address] [place] [address], [place] [address] Aug, [facility] [address] [id number] [address] [place] [address], [place] [address] Aug, [facility] [address] [id number] [address] [place] [address], [place] [address] Aug, [facility] [address] [id number] [address] [place] [address] 22 Aug, 2011 [facility] [address] [id number] [address] [place] [address], [place] [address] 16 Aug, 2011 [facility] [address] [id number] [address] [place] [address], [place] [address] 16 Aug, 2011 [facility] [address] [id number] [address] [place] [address] 10 Aug, 2011 [facility] [address] [id number] [address] [place] [address] Aug, [facility] [address] [id number] [address] [place] [address], [place] [address] Aug, [facility] [address] [id number] [address] [place] [address] Aug, [facility] [address] [id number] [address] [place] [address], [place] [address] Jul, [facility] [address] [id number] [address] [place] [address], [place] [address] Jul, [facility] [address] [id number] [address] [place] [address], [place] [address] Jul, [facility] [address] [id number] [address] [place] [address], [place] [address] Jul, [facility] [address] [id number] [address] [place] [address] Jul, [facility] [address] [id number] [address] [place] [address], [place] [address] Jul, [facility] [address] [id number] [address] [place] [address] Jul, [facility] [address] [id number] [address] [place] [address] Jul, [facility] [address] [id number] [address] [place] [address] Jul, [facility] [address] [id number] [address] [place] [address] Jul, [facility] [address] [id number] [address] [place] [address] Nov, [facility] [address] [id number] [address] [place] [address] Aug, [facility] [address] [id number] [address] [place] [address] Aug, [facility] [address] [facility] [id number] [address] [address] Aug, [facility] [address] [facility] [id number] [address] [place] [address] Aug, [facility] [address] [facility] [id number] [address] [place] [address] Jul, IMMUNIZATIONS No Known Immunizations SOCIAL HISTORY Never Assessed REASON FOR VISIT PLAN OF CARE VITAL SIGNS MEDICATIONS Unknown Medications RESULTS No Results PROCEDURES No Known procedures INSTRUCTIONS MEDICATIONS ADMINISTERED No Known Medications MEDICAL (GENERAL) HISTORY Type Description Date Medical History diabetes Medical History thyroid Medical History Schizoaffective disorder, depressive typ e Medical History Borderline personality disorder Medical History High risk medication use Medical History Attention deficit hyperactiv ity disorder (ADHD), inattentive type, mild Medical History Posttraumatic stress disorder Medical History Generalized anxiety disorder Medical History eczema Surgical History appendix Surgical History gallbladder Surgical History eyes Surgical History hip Surgical History MRI on back and pelvis 06/08 Hospitalization History surgeries Hospitalization History [facility] Suicide attempt by hanging 2015 Hospitalization History [facility] 01/30/2018-02/10/20 08 Hospitalization History [facility] 05/04/18- Hospitalization History [facility] - 5 days
--- OUTSIDE RECORDS SUMMARY | 2020-04-04 01:41 | XMS REPORT ---
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 42011220 Problem Primary insomnia F51.01 Active 397 2004 Problem Gastroesophageal reflux disease without esophagitis K21.9 Active 005775926 Problem Posttraumatic stress disorder F43.10 Active 55892715 Problem High risk medication use Z79.899 Activ e 923021402 Problem Borderline personality disorder F60.3 Active 98668857 Problem Schizoaffective disorder, depressive type F25.1 Active [id number] ALLERGIES No Information ENCOUNTERS Encounter Location Date Diagnosis [facility] [address] [id number] [address] [place] [phone] Mar, [facility] [address] [id number] [address] [place] [phone] February, Posttraumatic stress disorde r F43.10 ; Attention deficit hyperactivity disorder (ADHD), inattentive type, 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 ; Borderline personality disorder F60.3 ; Schizoaffective disorder, depressive type F25.1 and Primary insomnia F51.01 [facility] [address] [id number] [address] [place] [id number] February, Well woman exam Z01.419 [facility] [address] [id number] [address] [place] [phone] Jan, Posttraumatic stress disorde r F43.10 [facility] [address] [id number] [address] [place] [phone] Jan, Heartburn R12 and Gastroesop hageal reflux disease without esophagitis K21.9 [address] [facility] [id number] [address] [place] [phone] Jan, Posttraumatic stress disorde r F43.10 ; Attention deficit hyperactivity disorder (ADHD), inattentive type, 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 ; Borderline personality disorder F60.3 ; Schizoaffective disorder, depressive type F25.1 and Primary insomnia F51.01 [address] [address] [address] [facility] [id number] [address] [place] [id number] 16 Jan, 2020 [address] [address] [address] [facility] [id number] [address] [place] [phone] Jan, [address] [address] [address] [facility] [id number] [address] [place] [phone] Jan, [address] [address] [address] [facility] [id number] [address] [place] [phone] Jan, Posttraumatic stress disorde r F43.10 ; Attention deficit hyperactivity disorder (ADHD), inattentive type, 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 ; Borderline personality disorder F60.3 and Schizoaffective disorder, depressive type F25.1 [place] [address] [address] [facility] [id number] [address] [place] [phone] Dec, Paranoid schizophrenia F20.0 ; Attention deficit hyperactivity disorder (ADHD), inattentive type, 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 ; Posttraumatic stress disorder F43.10 and Borderline personality disorder F60.3 [place] [address] [address] [facility] [id number] [address] [place] [phone] Nov, Paranoid schizophrenia F20.0 ; Attention deficit hyperactivity disorder (ADHD), inattentive type, 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 ; Posttraumatic stress disorder F43.10 and Borderline personality disorder F60.3 [address] [address] [address] [facility] [id number] [address] [place] [id number] Nov, [address] [address] [address] [facility] [id number] [address] [place] [phone] Oct, Paranoid schizophrenia F20.0 ; Attention deficit hyperactivity disorder (ADHD), inattentive type, 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 ; Posttraumatic stress disorder F43.10 and Borderline personality disorder F60.3 [facility] [address] [facility] [id number] [address] [place] [phone] Oct, [facility] [address] [facility] [id number] [address] [place] [phone] Sep, Paranoid schizophrenia F20.0 ; Attention deficit hyperactivity disorder (ADHD), inattentive type, 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 ; Posttraumatic stress disorder F43.10 and Borderline personality disorder F60.3 [facility] [address] [facility] [id number] [address] [place] [phone] Aug, Paranoid schizophrenia F20.0 ; Attention deficit hyperactivity disorder (ADHD), inattentive type, 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 ; Posttraumatic stress disorder F43.10 and Borderline personality disorder F60.3 [facility] [address] [facility] [id number] [address] [place] [phone] Aug, [facility] [address] [facility] [id number] [address] [place] [phone] Aug, Acute bronchitis, unspecifie d organism J20.9 [facility] [address] [facility] [id number] [address] [place] [phone] Aug, [facility] [address] [facility] [id number] [address] [place] [phone] Aug, [facility] [address] [facility] [id number] [address] [place] [phone] Jul, Paranoid schizophrenia F20.0 ; Attention deficit hyperactivity disorder (ADHD), inattentive type, 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 ; Posttraumatic stress disorder F43.10 and Borderline personality disorder F60.3 [facility] [address] [facility] [id number] [address] [place] [phone] Jul, [facility] [address] [facility] [id number] [address] [place] [phone] Jun, Paranoid schizophrenia F20.0 ; 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 ; Attention deficit hyperactivity disorder (ADHD), inattentive type, 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 ; Posttraumatic stress disorder F43.10 and Borderline personality disorder F60.3 [facility] [address] [id number] [address] [place] [phone] Jun, Paranoid schizophrenia F20.0 ; Attention deficit hyperactivity disorder (ADHD), inattentive type, 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 ; Posttraumatic stress disorder F43.10 ; Borderline personality disorder F60.3 and 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 [facility] [address] [id number] [address] [place] [phone] Apr, Paranoid schizophrenia F20.0 ; Posttraumatic stress disorder F43.10 ; Attention deficit hyperactivity disorder (ADHD), inattentive type, 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 and Borderline personality disorder F60.3 [facility] [address] [id number] [address] [place] [phone] Apr, Paranoid schizophrenia F20.0 [facility] [address] [id number] [address] [place] [id number] Apr, Paranoid schizophrenia F20.0 ; Posttraumatic stress disorder F43.10 ; Attention deficit hyperactivity disorder (ADHD), inattentive type, 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 and Borderline personality disorder F60.3 [facility] [address] [id number] [address] [place] [phone] Mar, Paranoid schizophrenia F20.0 [facility] [address] [id number] [address] [place] [phone] Mar, Paranoid schizophrenia F20.0 ; Posttraumatic stress disorder F43.10 ; Attention deficit hyperactivity disorder (ADHD), inattentive type, 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 and Borderline personality disorder F60.3 [facility] [address] [id number] [address] [place] [phone] February, Paranoid schizophrenia F20.0 [facility] [address] [id number] [address] [place] [phone] Jan, Paranoid schizophrenia F20.0 ; Posttraumatic stress disorder F43.10 ; Attention deficit hyperactivity disorder (ADHD), inattentive type, 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 and Borderline personality disorder F60.3 [facility] [address] [facility] [id number] [address] [place] [phone] Dec, Paranoid schizophrenia F20.0 ; Posttraumatic stress disorder F43.10 ; Attention deficit hyperactivity disorder (ADHD), inattentive type, 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 and Borderline personality disorder F60.3 [facility] [address] [facility] [id number] [address] [place] [phone] Dec, Paranoid schizophrenia F20.0 ; Posttraumatic stress disorder F43.10 ; Attention deficit hyperactivity disorder (ADHD), inattentive type, 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 and Borderline personality disorder F60.3 [facility] [address] [facility] [id number] [address] [place] [phone] Oct, Paranoid schizophrenia F20.0 ; Posttraumatic stress disorder F43.10 ; Attention deficit hyperactivity disorder (ADHD), inattentive type, 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 and Borderline personality disorder F60.3 [facility] [address] [facility] [id number] [address] [place] [phone] Oct, Paranoid schizophrenia F20.0 ; Posttraumatic stress disorder F43.10 ; Attention deficit hyperactivity disorder (ADHD), inattentive type, 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 and Borderline personality disorder F60.3 [facility] [address] [facility] [id number] [address] [place] [phone] Aug, [facility] [address] [facility] [id number] [address] [place] [phone] Aug, Paranoid schizophrenia F20.0 ; Posttraumatic stress disorder F43.10 ; Attention deficit hyperactivity disorder (ADHD), inattentive type, 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 and Borderline personality disorder F60.3 [facility] [address] [facility] [id number] [address] [place] [phone] Jul, Dry skin dermatitis L85.3 [facility] [address] [id number] [address] [place] [phone] Jul, [facility] [address] [id number] [address] [place] [phone] Jul, Paranoid schizophrenia F20.0 [facility] [address] [id number] [address] [place] [phone] May, Paranoid schizophrenia F20.0 ; Posttraumatic stress disorder F43.10 ; Attention deficit hyperactivity disorder (ADHD), inattentive type, 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 and Borderline personality disorder F60.3 [facility] [address] [id number] [address] [place] [phone] May, [facility] [address] [id number] [address] [place] [phone] May, Paranoid schizophrenia F20.0 [facility] [address] [id number] [address] [place] [phone] May, Paranoid schizophrenia F20.0 ; Posttraumatic stress disorder F43.10 ; Attention deficit hyperactivity disorder (ADHD), inattentive type, 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 and Borderline personality disorder F60.3 [facility] [address] [id number] [address] [place] [phone] Apr, [facility] [address] [id number] [address] [place] [phone] Apr, Paranoid schizophrenia F20.0 ; Posttraumatic stress disorder F43.10 ; Attention deficit hyperactivity disorder (ADHD), inattentive type, 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 and Borderline personality disorder F60.3 [facility] [address] [id number] [address] [place] [phone] Apr, [facility] [address] [id number] [address] [place] [phone] Apr, Schizoaffective disorder, de pressive type F25.1 and Borderline personality disorder F60.3 [facility] [address] [id number] [address] [place] [id number] Apr, Paranoid schizophrenia F20.0 ; Posttraumatic stress disorder F43.10 ; Attention deficit hyperactivity disorder (ADHD), inattentive type, 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 and Borderline personality disorder F60.3 [facility] [address] [id number] [address] [address] Apr, [facility] [address] [id number] [address] [place] [address] Apr, Paranoid schizophrenia F20.0 ; Posttraumatic stress disorder F43.10 ; Attention deficit hyperactivity disorder (ADHD), inattentive type, 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 and Borderline personality disorder F60.3 [facility] [address] [id number] [address] [place] [phone] Apr, [facility] [address] [id number] [address] [place] [phone] Mar, Paranoid schizophrenia F20.0 [facility] [address] [id number] [address] [place] [phone] Mar, [facility] [address] [id number] [address] [place] [phone] Mar, Paranoid schizophrenia F20.0 ; Posttraumatic stress disorder F43.10 ; Attention deficit hyperactivity disorder (ADHD), inattentive type, 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 and Borderline personality disorder F60.3 [facility] [address] [id number] [address] [place] [phone] February, Paranoid schizophrenia F20.0 [facility] [address] [id number] [address] [place] [id number] February, Paranoid schizophrenia F20.0 ; Posttraumatic stress disorder F43.10 ; Attention deficit hyperactivity disorder (ADHD), inattentive type, 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 and Borderline personality disorder F60.3 [facility] [address] [id number] [address] [place] [phone] February, Paranoid schizophrenia F20.0 ; Posttraumatic stress disorder F43.10 ; Attention deficit hyperactivity disorder (ADHD), inattentive type, 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 and Borderline personality disorder F60.3 [facility] [address] [id number] [address] [place] [phone] February, [facility] [address] [id number] [address] [place] [phone] February, Paranoid schizophrenia F20.0 [facility] [address] [id number] [address] [place] [phone] February, Paranoid schizophrenia F20.0 [facility] [address] [id number] [address] [place] [phone] February, Paranoid schizophrenia F20.0 ; Posttraumatic stress disorder F43.10 ; Attention deficit hyperactivity disorder (ADHD), inattentive type, 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 and Borderline personality disorder F60.3 [facility] [address] [id number] [address] [place] [phone] Jan, Paranoid schizophrenia F20.0 ; Posttraumatic stress disorder F43.10 ; Attention deficit hyperactivity disorder (ADHD), inattentive type, 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 and Borderline personality disorder F60.3 [facility] [address] [id number] [address] [place] [phone] Jan, Paranoid schizophrenia F20.0 [facility] [address] [id number] [address] [place] [phone] Jan, Paranoid schizophrenia F20.0 [facility] [address] [facility] [id number] [address] [place] [id number] Jan, Paranoid schizophrenia F20.0 ; Posttraumatic stress disorder F43.10 ; Attention deficit hyperactivity disorder (ADHD), inattentive type, 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 and Borderline personality disorder F60.3 [facility] [address] [id number] [address] [place] [phone] Dec, [facility] [address] [id number] [address] [place] [phone] Nov, Paranoid schizophrenia F20.0 ; Posttraumatic stress disorder F43.10 ; Attention deficit hyperactivity disorder (ADHD), inattentive type, 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 and Borderline personality disorder F60.3 [facility] [address] [id number] [address] [place] [id number] Nov, [facility] [address] [id number] [address] [place] [phone] Oct, Paranoid schizophrenia F20.0 [facility] [address] [id number] [address] [place] [id number] Oct, Paranoid schizophrenia F20.0 ; Posttraumatic stress disorder F43.10 ; Attention deficit hyperactivity disorder (ADHD), inattentive type, 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 ; Borderline personality disorder F60.3 and 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 [facility] [address] [id number] [address] [place] [phone] Oct, [facility] [address] [id number] [address] [place] [phone] Oct, [facility] [address] [id number] [address] [place] [phone] Sep, [facility] [address] [id number] [address] [place] [address] Sep, Paranoid schizophrenia F20.0 ; Posttraumatic stress disorder F43.10 ; Attention deficit hyperactivity disorder (ADHD), inattentive type, 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 and Borderline personality disorder F60.3 [facility] [address] [id number] [address] [place] [phone] Sep, Paranoid schizophrenia F20.0 [facility] [address] [id number] [address] [place] [phone] Aug, Paranoid schizophrenia F20.0 ; Posttraumatic stress disorder F43.10 ; Attention deficit hyperactivity disorder (ADHD), inattentive type, 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 and Borderline personality disorder F60.3 [facility] [address] [id number] [address] [place] [phone] Aug, Paranoid schizophrenia F20.0 ; Posttraumatic stress disorder F43.10 ; Attention deficit hyperactivity disorder (ADHD), inattentive type, 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 and Borderline personality disorder F60.3 [facility] [address] [id number] [address] [place] [phone] Aug, [facility] [address] [id number] [address] [place] [id number] Jul, Paranoid schizophrenia F20.0 ; Posttraumatic stress disorder F43.10 ; Attention deficit hyperactivity disorder (ADHD), inattentive type, 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 and Borderline personality disorder F60.3 [facility] [address] [id number] [address] [place] [phone] Jul, Paranoid schizophrenia F20.0 [facility] [address] [facility] [id number] [address] [place] [id number] Jul, Paranoid schizophrenia F20.0 ; Posttraumatic stress disorder F43.10 ; Attention deficit hyperactivity disorder (ADHD), inattentive type, 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 and Borderline personality disorder F60.3 [facility] [address] [id number] [address] [place] [phone] Jun, Paranoid schizophrenia F20.0 ; Posttraumatic stress disorder F43.10 ; Attention deficit hyperactivity disorder (ADHD), inattentive type, 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 and Borderline personality disorder F60.3 [facility] [address] [facility] [id number] [address] [place] [phone] May, Other fdc (current) dr gabriel parra Z79.899 [facility] [address] [id number] [address] [place] [phone] May, [facility] [address] [id number] [address] [place] [id number] May, [facility] [address] [facility] [id number] [address] [place] [phone] May, Attention deficit hyperactiv ity disorder (ADHD), inattentive type, mild F90.0 [facility] [address] [facility] [id number] [address] [place] [phone] May, [facility] [address] [facility] [id number] [address] [place] [phone] May, Attention deficit hyperactiv ity disorder (ADHD), inattentive type, mild F90.0 [facility] [address] [id number] [address] [place] [phone] May, Paranoid schizophrenia F20.0 ; Posttraumatic stress disorder F43.10 ; Attention deficit hyperactivity disorder (ADHD), inattentive type, 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 and Other fdc (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 Z79.899 [facility] [address] [facility] [id number] [address] [place] [phone] Apr, Paranoid schizophrenia F20.0 [facility] [address] [facility] [id number] [address] [place] [phone] Apr, Paranoid schizophrenia F20.0 ; Posttraumatic stress disorder F43.10 and Attention deficit hyperactivity disorder (ADHD), inattentive type, 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 [facility] [address] [facility] [id number] [address] [place] [phone] February, [facility] [address] [facility] [id number] [address] [place] [phone] February, Paranoid schizophrenia F20.0 ; Posttraumatic stress disorder F43.10 and Attention deficit hyperactivity disorder (ADHD), inattentive type, 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 [facility] [address] [facility] [id number] [address] [place] [phone] February, Paranoid schizophrenia F20.0 ; Posttraumatic stress disorder F43.10 and Attention deficit hyperactivity disorder (ADHD), inattentive type, 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 [facility] [address] [facility] [id number] [address] [place] [phone] Jan, Paranoid schizophrenia F20.0 ; Posttraumatic stress disorder F43.10 and Attention deficit hyperactivity disorder (ADHD), inattentive type, 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 [facility] [address] [id number] [address] [place] [address] [id number] Dec, Dental examination Z01.20 [facility] [address] [id number] [address] [place] [id number] Nov, Dental examination Z01.20 [facility] [address] [id number] [address] [place] [address] [id number] Nov, Dental examination Z01.20 [facility] [address] [id number] [address] [place] [address] [id number] Nov, 2016 Dental caries K02.9 [facility] [address] [facility] [id number] [address] [place] [phone] 13 Nov, 2016 High risk medication use Z79 .899 [facility] [address] [facility] [id number] [address] [place] [phone] Nov, Paranoid schizophrenia F20.0 ; Posttraumatic stress disorder F43.10 ; Attention deficit hyperactivity disorder (ADHD), inattentive type, 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 and Borderline personality disorder in adult F60.3 [facility] [address] [id number] [address] [place] [address] [id number] Oct, Dental caries K02.9 [facility] [address] [facility] [id number] [address] [place] [address] Sep, Paranoid schizophrenia F20.0 ; Posttraumatic stress disorder F43.10 and Attention deficit hyperactivity disorder (ADHD), inattentive type, 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 [facility] [address] [facility] [id number] [address] [place] [address] Aug, Paranoid schizophrenia F20.0 ; Posttraumatic stress disorder F43.10 and Attention deficit hyperactivity disorder (ADHD), inattentive type, 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 [facility] [address] [facility] [id number] [address] [place] [address] Aug, Strep throat J02.0 and Cough R05 [facility] [address] [facility] [id number] [address] [place] [phone] Aug, [facility] [address] [place] [id number] [address] [place] [address] Jul, Paranoid schizophrenia F20.0 ; Posttraumatic stress disorder F43.10 and Attention deficit hyperactivity disorder (ADHD), inattentive type, 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 [facility] [address] [id number] [address] [place] [phone] Jul, [facility] [address] [id number] [address] [place] [address] Jun, Paranoid schizophrenia F20.0 ; Posttraumatic stress disorder F43.10 and Attention deficit hyperactivity disorder (ADHD), inattentive type, 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 [facility] [address] [id number] [address] [place] [address] [id number] Jun, Dental examination Z01.20 [facility] [address] [id number] [address] [place] [phone] Jun, [facility] [address] [id number] [address] [place] [address] May, Paranoid schizophrenia F20.0 [facility] [address] [id number] [address] [place] [address] May, Paranoid schizophrenia F20.0 ; Posttraumatic stress disorder F43.10 and Attention deficit hyperactivity disorder (ADHD), inattentive type, 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 [facility] [address] [id number] [address] [place] [address] May, [facility] [address] [id number] [address] [place] [address] May, Paranoid schizophrenia F20.0 [facility] [address] [id number] [address] [place] [address] May, [facility] [address] [id number] [address] [place] [phone] May, Paranoid schizophrenia F20.0 [facility] [address] [id number] [address] [place] [address] May, Schizoaffective disorder, un specified F25.9 [facility] [address] [id number] [address] [place] [phone] May, Schizoaffective disorder, un specified F25.9 [facility] [address] [id number] [address] [place] [id number] May, [facility] [address] [id number] [address] [place] [address] May, Paranoid schizophrenia F20.0 [facility] [address] [id number] [address] [place] [id number] May, Paranoid schizophrenia F20.0 ; Posttraumatic stress disorder F43.10 and Attention deficit hyperactivity disorder (ADHD), inattentive type, 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 [facility] [address] [id number] [address] [place] [phone] Mar, [facility] [address] [id number] [address] [place] [phone] Mar, Paranoid schizophrenia F20.0 ; Posttraumatic stress disorder F43.10 and Attention deficit hyperactivity disorder (ADHD), inattentive type, 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 [facility] [address] [id number] [address] [place] [address] Mar, Paranoid schizophrenia F20.0 [facility] [address] [id number] [address] [place] [address] Mar, Paranoid schizophrenia F20.0 ; Attention deficit hyperactivity disorder (ADHD), inattentive type, 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 and Posttraumatic stress disorder F43.10 [facility] [address] [id number] [address] [place] [phone] Mar, [facility] [address] [id number] [address] [place] [id number] Mar, Paranoid schizophrenia F20.0 ; Posttraumatic stress disorder F43.10 and Attention deficit hyperactivity disorder (ADHD), inattentive type, 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 [facility] [address] [id number] [address] [place] [phone] February, [facility] [address] [id number] [address] [place] [phone] February, [facility] [address] [id number] [address] [place] [phone] February, [facility] [address] [id number] [address] [place] [address] February, [facility] [address] [id number] [address] [place] [address] Jan, Paranoid schizophrenia F20.0 [facility] [address] [id number] [address] [place] [address] [id number] Jan, Dental examination Z01.20 [facility] [address] [id number] [address] [place] [address] [id number] Jan, Dental caries K02.9 [facility] [address] [id number] [address] [place] [address] [id number] Jan, Dental examination Z01.20 [facility] [address] [id number] [place] [address] [id number] Dec, Encounter for dental examina tion Z01.20 [facility] [address] [id number] [address] [place] [address] Dec, Paranoid schizophrenia F20.0 [facility] [address] [id number] [address] [place] [address] [id number] Dec, Dental examination Z01.20 [facility] [address] [id number] [address] [place] [phone] Dec, [facility] [address] [id number] [address] [place] [phone] Dec, Paranoid schizophrenia F20.0 ; Posttraumatic stress disorder F43.10 and Attention deficit hyperactivity disorder (ADHD), inattentive type, 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 [facility] [address] [id number] [address] [place] [address] Nov, Schizoaffective disorder, un specified F25.9 [facility] [address] [id number] [address] [place] [id number] Oct, Paranoid schizophrenia F20.0 [facility] [address] [id number] [address] [place] [phone] Oct, [facility] [address] [facility] [id number] [address] [place] [address] Sep, Paranoid schizophrenia F20.0 ; Posttraumatic stress disorder F43.10 and Attention deficit hyperactivity disorder (ADHD), inattentive type, 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 [facility] [address] [id number] [address] [place] [phone] Sep, [facility] [address] [id number] [address] [place] [phone] Sep, Paranoid schizophrenia F20.0 ; Posttraumatic stress disorder F43.10 and Attention deficit hyperactivity disorder (ADHD), inattentive type, 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 [facility] [address] [id number] [address] [place] [id number] Aug, Paranoid schizophrenia F20.0 [facility] [address] [id number] [address] [place] [phone] Aug, [facility] [address] [id number] [address] [place] [address] Aug, Posttraumatic stress disorde r F43.10 ; Paranoid schizophrenia F20.0 and Attention deficit hyperactivity disorder (ADHD), inattentive type, 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 [facility] [address] [id number] [address] [place] [phone] Jul, Bipolar disorder, unspecifie d F31.9 [facility] [address] [id number] [address] [place] [phone] Jul, [facility] [address] [facility] [id number] [address] [place] [id number] Jun, [facility] [address] [id number] [address] [place] [phone] Jun, Schizoaffective disorder, ch ronic 295.72 ; Posttraumatic stress disorder 309.81 and Attention deficit disorder of childhood without mention of hyperactivity 314.00 [facility] [address] [id number] [address] [place] [address] May, [facility] [address] [id number] [address] [place] [id number] May, [facility] [address] [id number] [address] [place] [id number] May, Schizoaffective disorder, ch ronic 295.72 ; Posttraumatic stress disorder 309.81 ; Attention deficit disorder of childhood without mention of hyperactivity 314.00 and Bipolar disorder, unspecified 296.80 [facility] [address] [id number] [address] [place] [phone] Apr, Schizoaffective disorder, ch ronic 295.72 [facility] [address] [id number] [address] [place] [phone] Apr, [facility] [address] [id number] [address] [place] [address] Apr, Schizoaffective disorder, ch ronic 295.72 ; Posttraumatic stress disorder 309.81 and Attention deficit disorder of childhood without mention of hyperactivity 314.00 [facility] [address] [id number] [address] [place] [address] Mar, Disorganized schizophrenia, 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 [facility] [address] [id number] [address] [place] [phone] Mar, [facility] [address] [id number] [address] [place] [phone] Mar, [facility] [address] [facility] [id number] [address] [place] [phone] Mar, [facility] [address] [id number] [address] [place] [phone] Mar, [facility] [address] [id number] [address] [place] [phone] February, Schizoaffective disorder, ch ronic 295.72 [facility] [address] [id number] [address] [place] [address] February, [facility] [address] [id number] [address] [place] [phone] February, Attention 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 ; Posttraumatic stress disorder 309.81 and Schizoaffective disorder, chronic 295.72 [facility] [address] [id number] [address] [place] [address] Jan, [facility] [address] [id number] [address] [place] [phone] Jan, [facility] [address] [id number] [address] [place] [phone] Jan, [facility] [address] [id number] [address] [place] [phone] Dec, [facility] [address] [id number] [address] [place] [address] Dec, [facility] [address] [id number] [address] [place] [phone] Dec, [facility] [address] [id number] [address] [place] [phone] Dec, [facility] [address] [id number] [address] [place] [address] Dec, [facility] [address] [id number] [address] [place] [phone] Dec, [facility] [address] [id number] [address] [place] [phone] Dec, [facility] [address] [id number] [address] [place] [phone] Dec, [facility] [address] [id number] [address] [place] [address], [place] [address] Nov, [facility] [address] [id number] [address] [place] [address], [place] [address] Nov, [facility] [address] [id number] [address] [place] [address], [place] [address] Nov, [facility] [address] [id number] [address] [place] [address], [place] [address] Nov, [facility] [address] [id number] [address] [place] [address], [place] [address] Nov, [facility] [address] [id number] [address] [place] [address], [place] [address] Nov, [facility] [address] [id number] [address] [place] [address], [place] [address] Nov, [facility] [address] [id number] [address] [place] [address], [place] [address] Nov, [facility] [address] [id number] [address] [place] [address], [place] [address] Nov, [facility] [address] [id number] [address] [place] [address], [place] [address] Nov, [facility] [address] [id number] [address] [place] [address], [place] [address] Oct, [facility] [address] [id number] [address] [place] [address], [place] [address] Oct, [facility] [address] [id number] [address] [place] [address], [place] [address] Oct, [facility] [address] [id number] [address] [place] [address], [place] [address] Oct, [facility] [address] [id number] [address] [place] [address], [place] [address] Oct, [facility] [address] [id number] [address] [place] [address], [place] [address] 13 Oct, 2014 [facility] [address] [id number] [address] [place] [address], [place] [address] Oct, [facility] [address] [id number] [address] [place] [address], [place] [address] 17 Sep, 2014 [facility] [address] [id number] [address] [place] [address], [place] [address] 17 Sep, 2014 [facility] [address] [id number] [address] [place] [address], [place] [address] Sep, [facility] [address] [id number] [address] [place] [address], [place] [address] Sep, [facility] [address] [id number] [address] [place] [address], [place] [address] Aug, [facility] [address] [id number] [address] [place] [address], [place] [address] Aug, [facility] [address] [id number] [address] [place] [address], [place] [address] Aug, [facility] [address] [id number] [address] [place] [address], [place] [address] Aug, [facility] [address] [id number] [address] [place] [address], [place] [address] Aug, [facility] [address] [id number] [address] [place] [address], [place] [address] Aug, [facility] [address] [id number] [address] [place] [address], [place] [address] Jul, [facility] [address] [id number] [address] [place] [address], [place] [address] Jul, [facility] [address] [id number] [address] [place] [address], [place] [address] Jul, [facility] [address] [id number] [address] [place] [address], [place] [address] Jul, [facility] [address] [id number] [address] [place] [address], [place] [address] 15 Jul, 2014 [facility] [address] [id number] [address] [place] [address], [place] [address] 15 Jul, 2014 [facility] [address] [id number] [address] [place] [address], [place] [address] 27 Jun, 2013 [facility] [address] [id number] [address] [place] [address], [place] [address] 27 Jun, 2013 [facility] [address] [id number] [address] [place] [address], [place] [address] 26 Jun, 2013 [facility] [address] [id number] [address] [place] [address], [place] [address] 26 Jun, 2013 [facility] [address] [id number] [address] [place] [address], [place] [address] 26 Jun, 2013 [facility] [address] [id number] [address] [place] [address], [place] [address] 26 Jun, 2013 [facility] [address] [id number] [address] [place] [address], [place] [address] 16 Jun, 2013 [facility] [address] [id number] [address] [place] [address], [place] [address] 16 Jun, 2013 [facility] [address] [id number] [address] [place] [address], [place] [address] 16 Jun, 2013 [facility] [address] [id number] [address] [place] [address], [place] [address] 16 Jun, 2013 [facility] [address] [id number] [address] [place] [address], [place] [address] 04 Jun, 2014 [facility] [address] [id number] [address] [place] [address], [place] [address] May, [facility] [address] [id number] [address] [place] [address], [place] [address] May, [facility] [address] [id number] [address] [place] [address], [place] [address] May, [facility] [address] [id number] [facility] [address] May, [facility] [address] [id number] [address] [place] [address], [place] [address] May, [facility] [address] [id number] [address] [place] [address], [place] [address] May, [facility] [address] [id number] [address] [place] [address], [place] [address] May, [facility] [address] [id number] [address] [place] [address], [place] [address] May, [facility] [address] [id number] [address] [place] [address], [place] [address] May, [facility] [address] [id number] [address] [place] [address], [place] [address] May, [facility] [address] [id number] [address] [place] [address], [place] [address] Apr, [facility] [address] [id number] [address] [place] [address], [place] [address] Apr, [facility] [address] [id number] [address] [place] [address], [place] [address] Apr, [facility] [address] [id number] [address] [place] [address], [place] [address] Apr, [facility] [address] [id number] [address] [place] [address], [place] [address] Apr, [facility] [address] [id number] [address] [place] [address], [place] [address] Apr, [facility] [address] [id number] [address] [place] [address], [place] [address] Apr, [facility] [address] [id number] [address] [place] [address], [place] [address] Apr, [facility] [address] [id number] [facility] [address] 15 Apr, 2014 [facility] [address] [id number] [facility] [address] Apr, [facility] [address] [id number] [facility] [address] Mar, [facility] [address] [id number] [address] [place] [address], [place] [address] Mar, [facility] [address] [id number] [address] [place] [address], [place] [address] Mar, [facility] [address] [id number] [address] [place] [address], [place] [address] 24 Mar, 2014 [facility] [address] [id number] [address] [place] [address], [place] [address] Mar, [facility] [address] [id number] [address] [place] [address], [place] [address] 18 Mar, 2014 [facility] [address] [id number] [address] [place] [address], [place] [address] 18 Mar, 2014 [facility] [address] [id number] [address] [place] [address], [place] [address] 16 Mar, 2014 [facility] [address] [id number] [address] [place] [address], [place] [address] 16 Mar, 2014 [facility] [address] [id number] [address] [place] [address], [place] [address] Mar, [facility] [address] [id number] [address] [place] [address], [place] [address] 13 Mar, 2014 [facility] [address] [id number] [address] [place] [address], [place] [address] 11 Mar, 2014 [facility] [address] [id number] [address] [place] [address], [place] [address] 11 Mar, 2014 [facility] [address] [id number] [address] [place] [address], [place] [address] Mar, [facility] [address] [id number] [facility] [address] Mar, [facility] [address] [id number] [address] [place] [address], [place] [address] Mar, [facility] [address] [id number] [address] [place] [address], [place] [address] Mar, [facility] [address] [id number] [address] [place] [address], [place] [address] Mar, [facility] [address] [id number] [address] [place] [address], [place] [address] Mar, [facility] [address] [id number] [address] [place] [address], [place] [address] Mar, [facility] [address] [id number] [address] [place] [address], [place] [address] February, [facility] [address] [id number] [address] [place] [address], [place] [address] February, [facility] [address] [id number] [address] [place] [address], [place] [address] February, [facility] [address] [id number] [address] [place] [address], [place] [address] February, [facility] [address] [id number] [address] [place] [address], [place] [address] February, [facility] [address] [id number] [address] [place] [address], [place] [address] February, [facility] [address] [id number] [address] [place] [address], [place] [address] February, [facility] [address] [id number] [address] [place] [address], [place] [address] February, [facility] [address] [id number] [address] [place] [address], [place] [address] February, [facility] [address] [id number] [address] [place] [address], [place] [address] February, [facility] [address] [id number] [address] [place] [address], [place] [address] February, [facility] [address] [id number] [address] [place] [address], [place] [address] February, [facility] [address] [id number] [address] [place] [address], [place] [address] February, [facility] [address] [id number] [address] [place] [address], [place] [address] February, [facility] [address] [id number] [address] [place] [address], [place] [address] February, [facility] [address] [id number] [address] [place] [address], [place] [address] February, [facility] [address] [id number] [address] [place] [address], [place] [address] February, [facility] [address] [id number] [address] [place] [address], [place] [address] February, [facility] [address] [id number] [address] [place] [address], [place] [address] February, [facility] [address] [id number] [address] [place] [address], [place] [address] February, [facility] [address] [id number] [address] [place] [address], [place] [address] February, [facility] [address] [id number] [address] [place] [address], [place] [address] Jan, [facility] [address] [id number] [address] [place] [address], [place] [address] Jan, [facility] [address] [id number] [address] [place] [address], [place] [address] Jan, [facility] [address] [id number] [address] [place] [address], [place] [address] Jan, [facility] [address] [id number] [address] [place] [address], [place] [address] 18 Jan, 2014 [facility] [address] [id number] [address] [place] [address], [place] [address] 18 Jan, 2014 [facility] [address] [id number] [address] [place] [address], [place] [address] 10 Jan, 2014 [facility] [address] [id number] [address] [place] [address], [place] [address] Jan, [facility] [address] [id number] [address] [place] [address], [place] [address] 21 Dec, 2013 [facility] [address] [id number] [address] [place] [address], [place] [address] 20 Dec, 2013 [facility] [address] [id number] [address] [place] [address], [place] [address] 20 Dec, 2013 [facility] [address] [id number] [address] [place] [address], [place] [address] 19 Dec, 2013 [facility] [address] [id number] [address] [place] [address], [place] [address] 19 Dec, 2013 [facility] [address] [id number] [address] [place] [address], [place] [address] 15 Dec, 2013 [facility] [address] [id number] [address] [place] [address], [place] [address] 15 Dec, 2013 [facility] [address] [id number] [address] [place] [address], [place] [address] 11 Dec, 2013 [facility] [address] [id number] [address] [place] [address], [place] [address] 10 Dec, 2013 [facility] [address] [id number] [address] [place] [address], [place] [address] 10 Dec, 2013 [facility] [address] [id number] [address] [place] [address], [place] [address] 18 Nov, 2013 [facility] [address] [id number] [address] [place] [address], [place] [address] Nov, [facility] [address] [id number] [address] [place] [address], [place] [address] Nov, [facility] [address] [id number] [address] [place] [address], [place] [address] Nov, [facility] [address] [id number] [address] [place] [address], [place] [address] Nov, [facility] [address] [id number] [address] [place] [address], [place] [address] Oct, [facility] [address] [id number] [address] [place] [address], [place] [address] Oct, [facility] [address] [id number] [address] [place] [address], [place] [address] Oct, [facility] [address] [id number] [address] [place] [address], [place] [address] Sep, [facility] [address] [id number] [address] [place] [address], [place] [address] Sep, [facility] [address] [id number] [address] [place] [address], [place] [address] Sep, [facility] [address] [id number] [address] [place] [address], [place] [address] Sep, [facility] [address] [id number] [address] [place] [address], [place] [address] Aug, [facility] [address] [id number] [address] [place] [address], [place] [address] Aug, [facility] [address] [id number] [address] [place] [address], [place] [address] Jul, [facility] [address] [id number] [address] [place] [address], [place] [address] Jul, [facility] [address] [id number] [address] [place] [address] Jul, [facility] [address] [id number] [address] [place] [address], [place] [address] Jul, [facility] [address] [id number] [address] [place] [address], [place] [address] Jul, [facility] [address] [id number] [address] [place] [address], [place] [address] Jun, [facility] [address] [id number] [address] [place] [address], [place] [address] 25 Jun, 2013 [facility] [address] [id number] [address] [place] [address], [place] [address] 19 Jun, 2013 [facility] [address] [id number] [address] [place] [address], [place] [address] 18 Jun, 2013 [facility] [address] [id number] [address] [place] [address], [place] [address] 16 Jun, 2013 [facility] [address] [id number] [address] [place] [address], [place] [address] 12 Jun, 2013 [facility] [address] [id number] [address] [place] [address], [place] [address] Jun, [facility] [address] [id number] [address] [place] [address], [place] [address] 30 May, 2013 [facility] [address] [id number] [address] [place] [address], [place] [address] May, [facility] [address] [id number] [address] [place] [address], [place] [address] Apr, [facility] [address] [id number] [address] [place] [address], [place] [address] Apr, [facility] [address] [id number] [address] [place] [address], [place] [address] Apr, [facility] [address] [id number] [address] [place] [address], [place] [address] Mar, [facility] [address] [id number] [address] [place] [address], [place] [address] Mar, [facility] [address] [id number] [address] [place] [address], [place] [address] February, [facility] [address] [id number] [address] [place] [address], [place] [address] February, [facility] [address] [id number] [address] [place] [address], [place] [address] February, [facility] [address] [id number] [address] [place] [address], [place] [address] February, [facility] [address] [id number] [address] [place] [address], [place] [address] Jan, [facility] [address] [id number] [address] [place] [address], [place] [address] Jan, [facility] [address] [id number] [address] [place] [address], [place] [address] Jan, [facility] [address] [id number] [address] [place] [address], [place] [address] Dec, [facility] [address] [id number] [address] [place] [address], [place] [address] Dec, [facility] [address] [id number] [address] [place] [address], [place] [address] Dec, [facility] [address] [id number] [address] [place] [address], [place] [address] Dec, [facility] [address] [id number] [address] [place] [address], [place] [address] Nov, [facility] [address] [id number] [address] [place] [address], [place] [address] Nov, [facility] [address] [id number] [address] [place] [address], [place] [address] Oct, [facility] [address] [id number] [address] [place] [address], [place] [address] Oct, [facility] [address] [id number] [address] [place] [address], [place] [address] Oct, [facility] [address] [id number] [address] [place] [address], [place] [address] Oct, [facility] [address] [id number] [address] [place] [address], [place] [address] Aug, [facility] [address] [id number] [address] [place] [address], [place] [address] Aug, [facility] [address] [id number] [address] [place] [address], [place] [address] Jun, [facility] [address] [id number] [address] [place] [address], [place] [address] May, [facility] [address] [id number] [address] [place] [address], [place] [address] May, [facility] [address] [id number] [address] [place] [address], [place] [address] Apr, [facility] [address] [id number] [address] [place] [address], [place] [address] Apr, [facility] [address] [id number] [address] [place] [address], [place] [address] Apr, [facility] [address] [id number] [address] [place] [address], [place] [address] Mar, [facility] [address] [id number] [address] [place] [address], [place] [address] Mar, [facility] [address] [id number] [address] [place] [address], [place] [address] Mar, [facility] [address] [id number] [address] [place] [address], [place] [address] Mar, [facility] [address] [id number] [address] [place] [address], [place] [address] Mar, [facility] [address] [id number] [address] [place] [address], [place] [address] February, [facility] [address] [id number] [address] [place] [address], [place] [address] February, [facility] [address] [id number] [address] [place] [address], [place] [address] February, [facility] [address] [id number] [address] [place] [address], [place] [address] February, [facility] [address] [id number] [address] [place] [address], [place] [address] February, [facility] [address] [id number] [address] [place] [address], [place] [address] February, [facility] [address] [id number] [address] [place] [address], [place] [address] February, [facility] [address] [id number] [address] [place] [address], [place] [address] Jan, [facility] [address] [id number] [address] [place] [address], [place] [address] Jan, [facility] [address] [id number] [address] [place] [address], [place] [address] 17 Jan, 2012 [facility] [address] [id number] [address] [place] [address], [place] [address] Jan, [facility] [address] [id number] [address] [place] [address], [place] [address] Jan, [facility] [address] [id number] [address] [place] [address], [place] [address] 04 Jan, 2012 [facility] [address] [id number] [address] [place] [address], [place] [address] 30 Dec, 2011 [facility] [address] [id number] [address] [place] [address], [place] [address] 24 Dec, 2011 [facility] [address] [id number] [address] [place] [address], [place] [address] Dec, [facility] [address] [id number] [address] [place] [address], [place] [address] 13 Dec, 2011 [facility] [address] [id number] [address] [place] [address], [place] [address] 06 Dec, 2011 [facility] [address] [id number] [address] [place] [address], [place] [address] 28 Nov, 2011 [facility] [address] [id number] [address] [place] [address], [place] [address] Nov, [facility] [address] [id number] [address] [place] [address], [place] [address] Nov, [facility] [address] [id number] [address] [place] [address], [place] [address] 14 Nov, 2011 [facility] [address] [id number] [address] [place] [address], [place] [address] Nov, [facility] [address] [id number] [address] [place] [address], [place] [address] Nov, [facility] [address] [id number] [address] [place] [address], [place] [address] Oct, [facility] [address] [id number] [address] [place] [address], [place] [address] Oct, [facility] [address] [id number] [address] [place] [address], [place] [address] Oct, [facility] [address] [id number] [address] [place] [address], [place] [address] Oct, [facility] [address] [id number] [address] [place] [address], [place] [address] Oct, [facility] [address] [id number] [address] [place] [address], [place] [address] Sep, [facility] [address] [id number] [address] [place] [address], [place] [address] Sep, [facility] [address] [id number] [address] [place] [address], [place] [address] Sep, [facility] [address] [id number] [address] [place] [address], [place] [address] 14 Sep, 2011 [facility] [address] [id number] [address] [place] [address], [place] [address] 14 Sep, 2011 [facility] [address] [id number] [address] [place] [address], [place] [address] 13 Sep, 2011 [facility] [address] [id number] [address] [place] [address], [place] [address] 12 Sep, 2011 [facility] [address] [id number] [address] [place] [address], [place] [address] 09 Sep, 2011 [facility] [address] [id number] [address] [place] [address], [place] [address] 05 Sep, 2011 [facility] [address] [id number] [address] [place] [address], [place] [address] 30 Aug, 2011 [facility] [address] [id number] [address] [place] [address], [place] [address] 30 Aug, 2011 [facility] [address] [id number] [address] [place] [address], [place] [address] Aug, [facility] [address] [id number] [address] [place] [address], [place] [address] Aug, [facility] [address] [id number] [address] [place] [address], [place] [address] Aug, [facility] [address] [id number] [address] [place] [address] 22 Aug, 2011 [facility] [address] [id number] [address] [place] [address], [place] [address] 16 Aug, 2011 [facility] [address] [id number] [address] [place] [address], [place] [address] 16 Aug, 2011 [facility] [address] [id number] [address] [place] [address] 10 Aug, 2011 [facility] [address] [id number] [address] [place] [address] Aug, [facility] [address] [id number] [address] [place] [address], [place] [address] Aug, [facility] [address] [id number] [address] [place] [address] Aug, [facility] [address] [id number] [address] [place] [address], [place] [address] Jul, [facility] [address] [id number] [address] [place] [address], [place] [address] Jul, [facility] [address] [id number] [address] [place] [address], [place] [address] Jul, [facility] [address] [id number] [address] [place] [address], [place] [address] Jul, [facility] [address] [id number] [address] [place] [address] Jul, [facility] [address] [id number] [address] [place] [address], [place] [address] Jul, [facility] [address] [id number] [address] [place] [address] Jul, [facility] [address] [id number] [address] [place] [address] Jul, [facility] [address] [id number] [address] [place] [id number] Jul, [facility] [address] [id number] [address] [place] [id number] Jul, [facility] [address] [id number] [address] [place] [id number] Nov, [facility] [address] [id number] [address] [place] [id number] Aug, [facility] [address] [id number] [address] [place] [id number] Aug, [facility] [address] [facility] [id number] [address] [address] Aug, [facility] [address] [facility] [id number] [address] [address] Aug, [facility] [address] [facility] [id number] [address] [address] Jul, IMMUNIZATIONS No Known Immunizations SOCIAL HISTORY Never Assessed REASON FOR VISIT PLAN OF CARE VITAL SIGNS Height 65.25 in 2013-08-20 Weight 200 lbs 2013-08-20 Temperature 97.8 degrees Fahrenheit 2013-08-20 Heart Rate 76 bpm 2013-08-20 Respiratory Rate 22 2013-08-20 Blood pressure systolic 110 mmHg 2013-08-20 Blood pressure diastolic 78 mmHg 2013-08-20 MEDICATIONS Unknown Medications RESULTS No Results PROCEDURES [...] Suicide attempt by hanging 2015 Hospitalization History [facility] 01/30/2018-02/10/20 08 [facility]ization History [facility] 05/04/18- Hospitalization History [facility] - 5 days
--- OUTSIDE RECORDS SUMMARY | 2020-04-04 01:42 | XMS REPORT ---
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 15462234 Problem Primary insomnia F51.01 Active 397 2004 Problem Gastroesophageal reflux disease without esophagitis K21.9 Active 508810906 Problem Posttraumatic stress disorder F43.10 Active 23949706 Problem High risk medication use Z79.899 Activ e 555701845 Problem Borderline personality disorder F60.3 Active 94765924 Problem Schizoaffective disorder, depressive type F25.1 Active [id number] ALLERGIES No Information ENCOUNTERS Encounter Location Date Diagnosis [facility] [address] [id number] [address] [place] [phone] Mar, [facility] [address] [id number] [address] [place] [phone] February, Posttraumatic stress disorde r F43.10 ; Attention deficit hyperactivity disorder (ADHD), inattentive type, 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 ; Borderline personality disorder F60.3 ; Schizoaffective disorder, depressive type F25.1 and Primary insomnia F51.01 [facility] [address] [id number] [address] [place] [phone] February, Well woman exam Z01.419 [facility] [address] [id number] [address] [place] [phone] Jan, Posttraumatic stress disorde r F43.10 [facility] [address] [id number] [address] [place] [phone] Jan, Heartburn R12 and Gastroesop hageal reflux disease without esophagitis K21.9 [place] [id number] [facility] [id number] [address] [place] [phone] Jan, Posttraumatic stress disorde r F43.10 ; Attention deficit hyperactivity disorder (ADHD), inattentive type, 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 ; Borderline personality disorder F60.3 ; Schizoaffective disorder, depressive type F25.1 and Primary insomnia F51.01 [place] [address] [address] [facility] [id number] [address] [place] [phone] 16 Jan, 2020 [place] [address] [address] [facility] [id number] [address] [place] [phone] Jan, [place] [address] [address] [facility] [id number] [address] [place] [phone] Jan, [place] [address] [address] [facility] [id number] [address] [place] [phone] Jan, Posttraumatic stress disorde r F43.10 ; Attention deficit hyperactivity disorder (ADHD), inattentive type, 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 ; Borderline personality disorder F60.3 and Schizoaffective disorder, depressive type F25.1 [place] [address] [address] [facility] [id number] [address] [place] [phone] Dec, Paranoid schizophrenia F20.0 ; Attention deficit hyperactivity disorder (ADHD), inattentive type, 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 ; Posttraumatic stress disorder F43.10 and Borderline personality disorder F60.3 [place] [address] [address] [facility] [id number] [address] [place] [phone] Nov, Paranoid schizophrenia F20.0 ; Attention deficit hyperactivity disorder (ADHD), inattentive type, 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 ; Posttraumatic stress disorder F43.10 and Borderline personality disorder F60.3 [place] [address] [address] [facility] [id number] [address] [place] [phone] Nov, [place] [address] [address] [facility] [id number] [address] [place] [phone] Oct, Paranoid schizophrenia F20.0 ; Attention deficit hyperactivity disorder (ADHD), inattentive type, 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 ; Posttraumatic stress disorder F43.10 and Borderline personality disorder F60.3 [facility] [address] [facility] [id number] [address] [place] [phone] Oct, [facility] [address] [facility] [id number] [address] [place] [phone] Sep, Paranoid schizophrenia F20.0 ; Attention deficit hyperactivity disorder (ADHD), inattentive type, 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 ; Posttraumatic stress disorder F43.10 and Borderline personality disorder F60.3 [facility] [address] [facility] [id number] [address] [place] [phone] Aug, Paranoid schizophrenia F20.0 ; Attention deficit hyperactivity disorder (ADHD), inattentive type, 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 ; Posttraumatic stress disorder F43.10 and Borderline personality disorder F60.3 [facility] [address] [facility] [id number] [address] [place] [phone] Aug, [facility] [address] [facility] [id number] [address] [place] [phone] Aug, Acute bronchitis, unspecifie d organism J20.9 [facility] [address] [facility] [id number] [address] [place] [phone] Aug, [facility] [address] [facility] [id number] [address] [place] [phone] Aug, [facility] [address] [facility] [id number] [address] [place] [phone] Jul, Paranoid schizophrenia F20.0 ; Attention deficit hyperactivity disorder (ADHD), inattentive type, 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 ; Posttraumatic stress disorder F43.10 and Borderline personality disorder F60.3 [facility] [address] [facility] [id number] [address] [place] [phone] Jul, [facility] [address] [facility] [id number] [address] [place] [phone] Jun, Paranoid schizophrenia F20.0 ; 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 ; Attention deficit hyperactivity disorder (ADHD), inattentive type, 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 ; Posttraumatic stress disorder F43.10 and Borderline personality disorder F60.3 [facility] [address] [id number] [address] [place] [phone] Jun, Paranoid schizophrenia F20.0 ; Attention deficit hyperactivity disorder (ADHD), inattentive type, 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 ; Posttraumatic stress disorder F43.10 ; Borderline personality disorder F60.3 and 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 [facility] [address] [id number] [address] [place] [phone] Apr, Paranoid schizophrenia F20.0 ; Posttraumatic stress disorder F43.10 ; Attention deficit hyperactivity disorder (ADHD), inattentive type, 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 and Borderline personality disorder F60.3 [facility] [address] [id number] [address] [place] [phone] Apr, Paranoid schizophrenia F20.0 [facility] [address] [id number] [address] [place] [phone] Apr, Paranoid schizophrenia F20.0 ; Posttraumatic stress disorder F43.10 ; Attention deficit hyperactivity disorder (ADHD), inattentive type, 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 and Borderline personality disorder F60.3 [facility] [address] [id number] [address] [place] [phone] Mar, Paranoid schizophrenia F20.0 [facility] [address] [id number] [address] [place] [phone] Mar, Paranoid schizophrenia F20.0 ; Posttraumatic stress disorder F43.10 ; Attention deficit hyperactivity disorder (ADHD), inattentive type, 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 and Borderline personality disorder F60.3 [facility] [address] [id number] [address] [place] [phone] February, Paranoid schizophrenia F20.0 [facility] [address] [id number] [address] [place] [phone] Jan, Paranoid schizophrenia F20.0 ; Posttraumatic stress disorder F43.10 ; Attention deficit hyperactivity disorder (ADHD), inattentive type, 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 and Borderline personality disorder F60.3 [facility] [address] [facility] [id number] [address] [place] [phone] Dec, Paranoid schizophrenia F20.0 ; Posttraumatic stress disorder F43.10 ; Attention deficit hyperactivity disorder (ADHD), inattentive type, 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 and Borderline personality disorder F60.3 [facility] [address] [facility] [id number] [address] [place] [phone] Dec, Paranoid schizophrenia F20.0 ; Posttraumatic stress disorder F43.10 ; Attention deficit hyperactivity disorder (ADHD), inattentive type, 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 and Borderline personality disorder F60.3 [facility] [address] [facility] [id number] [address] [place] [phone] Oct, Paranoid schizophrenia F20.0 ; Posttraumatic stress disorder F43.10 ; Attention deficit hyperactivity disorder (ADHD), inattentive type, 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 and Borderline personality disorder F60.3 [facility] [address] [facility] [id number] [address] [place] [phone] Oct, Paranoid schizophrenia F20.0 ; Posttraumatic stress disorder F43.10 ; Attention deficit hyperactivity disorder (ADHD), inattentive type, 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 and Borderline personality disorder F60.3 [facility] [address] [facility] [id number] [address] [place] [phone] Aug, [facility] [address] [facility] [id number] [address] [place] [phone] Aug, Paranoid schizophrenia F20.0 ; Posttraumatic stress disorder F43.10 ; Attention deficit hyperactivity disorder (ADHD), inattentive type, 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 and Borderline personality disorder F60.3 [facility] [address] [facility] [id number] [address] [place] [phone] Jul, Dry skin dermatitis L85.3 [facility] [address] [id number] [address] [place] [phone] Jul, [facility] [address] [id number] [address] [place] [phone] Jul, Paranoid schizophrenia F20.0 [facility] [address] [id number] [address] [place] [phone] May, Paranoid schizophrenia F20.0 ; Posttraumatic stress disorder F43.10 ; Attention deficit hyperactivity disorder (ADHD), inattentive type, 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 and Borderline personality disorder F60.3 [facility] [address] [id number] [address] [place] [phone] May, [facility] [address] [id number] [address] [place] [phone] May, Paranoid schizophrenia F20.0 [facility] [address] [id number] [address] [place] [phone] May, Paranoid schizophrenia F20.0 ; Posttraumatic stress disorder F43.10 ; Attention deficit hyperactivity disorder (ADHD), inattentive type, 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 and Borderline personality disorder F60.3 [facility] [address] [id number] [address] [place] [phone] Apr, [facility] [address] [id number] [address] [place] [phone] Apr, Paranoid schizophrenia F20.0 ; Posttraumatic stress disorder F43.10 ; Attention deficit hyperactivity disorder (ADHD), inattentive type, 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 and Borderline personality disorder F60.3 [facility] [address] [id number] [address] [place] [phone] Apr, [facility] [address] [id number] [address] [place] [phone] Apr, Schizoaffective disorder, de pressive type F25.1 and Borderline personality disorder F60.3 [facility] [address] [id number] [address] [place] [phone] Apr, Paranoid schizophrenia F20.0 ; Posttraumatic stress disorder F43.10 ; Attention deficit hyperactivity disorder (ADHD), inattentive type, 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 and Borderline personality disorder F60.3 [facility] [address] [id number] [address] [address] Apr, [facility] [address] [id number] [address] [place] [phone] Apr, Paranoid schizophrenia F20.0 ; Posttraumatic stress disorder F43.10 ; Attention deficit hyperactivity disorder (ADHD), inattentive type, 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 and Borderline personality disorder F60.3 [facility] [address] [id number] [address] [place] [phone] Apr, [facility] [address] [id number] [address] [place] [phone] Mar, Paranoid schizophrenia F20.0 [facility] [address] [id number] [address] [place] [phone] Mar, [facility] [address] [id number] [address] [place] [phone] Mar, Paranoid schizophrenia F20.0 ; Posttraumatic stress disorder F43.10 ; Attention deficit hyperactivity disorder (ADHD), inattentive type, 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 and Borderline personality disorder F60.3 [facility] [address] [id number] [address] [place] [phone] February, Paranoid schizophrenia F20.0 [facility] [address] [id number] [address] [place] [phone] February, Paranoid schizophrenia F20.0 ; Posttraumatic stress disorder F43.10 ; Attention deficit hyperactivity disorder (ADHD), inattentive type, 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 and Borderline personality disorder F60.3 [facility] [address] [id number] [address] [place] [phone] February, Paranoid schizophrenia F20.0 ; Posttraumatic stress disorder F43.10 ; Attention deficit hyperactivity disorder (ADHD), inattentive type, 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 and Borderline personality disorder F60.3 [facility] [address] [id number] [address] [place] [phone] February, [facility] [address] [id number] [address] [place] [phone] February, Paranoid schizophrenia F20.0 [facility] [address] [id number] [address] [place] [phone] February, Paranoid schizophrenia F20.0 [facility] [address] [id number] [address] [place] [phone] February, Paranoid schizophrenia F20.0 ; Posttraumatic stress disorder F43.10 ; Attention deficit hyperactivity disorder (ADHD), inattentive type, 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 and Borderline personality disorder F60.3 [facility] [address] [id number] [address] [place] [phone] Jan, Paranoid schizophrenia F20.0 ; Posttraumatic stress disorder F43.10 ; Attention deficit hyperactivity disorder (ADHD), inattentive type, 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 and Borderline personality disorder F60.3 [facility] [address] [id number] [address] [place] [phone] Jan, Paranoid schizophrenia F20.0 [facility] [address] [id number] [address] [place] [phone] Jan, Paranoid schizophrenia F20.0 [facility] [address] [facility] [id number] [address] [place] [phone] Jan, Paranoid schizophrenia F20.0 ; Posttraumatic stress disorder F43.10 ; Attention deficit hyperactivity disorder (ADHD), inattentive type, 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 and Borderline personality disorder F60.3 [facility] [address] [id number] [address] [place] [phone] Dec, [facility] [address] [id number] [address] [place] [phone] Nov, Paranoid schizophrenia F20.0 ; Posttraumatic stress disorder F43.10 ; Attention deficit hyperactivity disorder (ADHD), inattentive type, 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 and Borderline personality disorder F60.3 [facility] [address] [id number] [address] [place] [phone] Nov, [facility] [address] [id number] [address] [place] [phone] Oct, Paranoid schizophrenia F20.0 [facility] [address] [id number] [address] [place] [phone] Oct, Paranoid schizophrenia F20.0 ; Posttraumatic stress disorder F43.10 ; Attention deficit hyperactivity disorder (ADHD), inattentive type, 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 ; Borderline personality disorder F60.3 and 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 [facility] [address] [id number] [address] [place] [phone] Oct, [facility] [address] [id number] [address] [place] [phone] Oct, [facility] [address] [id number] [address] [place] [phone] Sep, [facility] [address] [id number] [address] [place] [phone] Sep, Paranoid schizophrenia F20.0 ; Posttraumatic stress disorder F43.10 ; Attention deficit hyperactivity disorder (ADHD), inattentive type, 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 and Borderline personality disorder F60.3 [facility] [address] [id number] [address] [place] [phone] Sep, Paranoid schizophrenia F20.0 [facility] [address] [id number] [address] [place] [phone] Aug, Paranoid schizophrenia F20.0 ; Posttraumatic stress disorder F43.10 ; Attention deficit hyperactivity disorder (ADHD), inattentive type, 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 and Borderline personality disorder F60.3 [facility] [address] [id number] [address] [place] [phone] Aug, Paranoid schizophrenia F20.0 ; Posttraumatic stress disorder F43.10 ; Attention deficit hyperactivity disorder (ADHD), inattentive type, 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 and Borderline personality disorder F60.3 [facility] [address] [id number] [address] [place] [phone] Aug, [facility] [address] [id number] [address] [place] [phone] Jul, Paranoid schizophrenia F20.0 ; Posttraumatic stress disorder F43.10 ; Attention deficit hyperactivity disorder (ADHD), inattentive type, 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 and Borderline personality disorder F60.3 [facility] [address] [id number] [address] [place] [phone] Jul, Paranoid schizophrenia F20.0 [facility] [address] [facility] [id number] [address] [place] [phone] Jul, Paranoid schizophrenia F20.0 ; Posttraumatic stress disorder F43.10 ; Attention deficit hyperactivity disorder (ADHD), inattentive type, 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 and Borderline personality disorder F60.3 [facility] [address] [id number] [address] [place] [phone] Jun, Paranoid schizophrenia F20.0 ; Posttraumatic stress disorder F43.10 ; Attention deficit hyperactivity disorder (ADHD), inattentive type, 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 and Borderline personality disorder F60.3 [facility] [address] [facility] [id number] [address] [place] [phone] May, Other detention (current) dr gabriel parra Z79.899 [facility] [address] [id number] [address] [place] [phone] May, [facility] [address] [id number] [address] [place] [phone] May, [facility] [address] [facility] [id number] [address] [place] [phone] May, Attention deficit hyperactiv ity disorder (ADHD), inattentive type, mild F90.0 [facility] [address] [facility] [id number] [address] [place] [phone] May, [facility] [address] [facility] [id number] [address] [place] [phone] May, Attention deficit hyperactiv ity disorder (ADHD), inattentive type, mild F90.0 [facility] [address] [id number] [address] [place] [phone] May, Paranoid schizophrenia F20.0 ; Posttraumatic stress disorder F43.10 ; Attention deficit hyperactivity disorder (ADHD), inattentive type, 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 and Other detention (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 Z79.899 [facility] [address] [facility] [id number] [address] [place] [phone] Apr, Paranoid schizophrenia F20.0 [facility] [address] [facility] [id number] [address] [place] [phone] Apr, Paranoid schizophrenia F20.0 ; Posttraumatic stress disorder F43.10 and Attention deficit hyperactivity disorder (ADHD), inattentive type, 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 [facility] [address] [facility] [id number] [address] [place] [phone] February, [facility] [address] [facility] [id number] [address] [place] [phone] February, Paranoid schizophrenia F20.0 ; Posttraumatic stress disorder F43.10 and Attention deficit hyperactivity disorder (ADHD), inattentive type, 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 [facility] [address] [facility] [id number] [address] [place] [phone] February, Paranoid schizophrenia F20.0 ; Posttraumatic stress disorder F43.10 and Attention deficit hyperactivity disorder (ADHD), inattentive type, 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 [facility] [address] [facility] [id number] [address] [place] [phone] Jan, Paranoid schizophrenia F20.0 ; Posttraumatic stress disorder F43.10 and Attention deficit hyperactivity disorder (ADHD), inattentive type, 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 [facility] [address] [id number] [address] [place] [id number] Dec, Dental examination Z01.20 [facility] [address] [id number] [address] [place] [id number] Nov, Dental examination Z01.20 [facility] [address] [id number] [address] [place] [id number] Nov, Dental examination Z01.20 [facility] [address] [id number] [place] [address] [id number] 14 Nov, 2016 Dental caries K02.9 [facility] [address] [facility] [id number] [address] [place] [phone] 13 Nov, 2016 High risk medication use Z79 .899 [facility] [address] [facility] [id number] [address] [place] [phone] Nov, Paranoid schizophrenia F20.0 ; Posttraumatic stress disorder F43.10 ; Attention deficit hyperactivity disorder (ADHD), inattentive type, 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 and Borderline personality disorder in adult F60.3 [facility] [address] [id number] [address] [place] [address] [phone] Oct, Dental caries K02.9 [facility] [address] [facility] [id number] [address] [place] [phone] Sep, Paranoid schizophrenia F20.0 ; Posttraumatic stress disorder F43.10 and Attention deficit hyperactivity disorder (ADHD), inattentive type, 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 [facility] [address] [facility] [id number] [address] [place] [phone] Aug, Paranoid schizophrenia F20.0 ; Posttraumatic stress disorder F43.10 and Attention deficit hyperactivity disorder (ADHD), inattentive type, 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 [facility] [address] [facility] [id number] [address] [place] [phone] Aug, Strep throat J02.0 and Cough R05 [facility] [address] [facility] [id number] [address] [place] [phone] Aug, [facility] [address] [place] [id number] [address] [place] [phone] Jul, Paranoid schizophrenia F20.0 ; Posttraumatic stress disorder F43.10 and Attention deficit hyperactivity disorder (ADHD), inattentive type, 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 [facility] [address] [id number] [address] [place] [phone] Jul, [facility] [address] [id number] [address] [place] [phone] Jun, Paranoid schizophrenia F20.0 ; Posttraumatic stress disorder F43.10 and Attention deficit hyperactivity disorder (ADHD), inattentive type, 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 [facility] [address] [id number] [address] [place] [address] [id number] Jun, Dental examination Z01.20 [facility] [address] [id number] [address] [place] [phone] Jun, [facility] [address] [id number] [address] [place] [phone] May, Paranoid schizophrenia F20.0 [facility] [address] [id number] [address] [place] [phone] May, Paranoid schizophrenia F20.0 ; Posttraumatic stress disorder F43.10 and Attention deficit hyperactivity disorder (ADHD), inattentive type, 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 [facility] [address] [id number] [address] [place] [phone] May, [facility] [address] [id number] [address] [place] [phone] May, Paranoid schizophrenia F20.0 [facility] [address] [id number] [address] [place] [phone] May, [facility] [address] [id number] [address] [place] [phone] May, Paranoid schizophrenia F20.0 [facility] [address] [id number] [address] [place] [phone] May, Schizoaffective disorder, un specified F25.9 [facility] [address] [id number] [address] [place] [phone] May, Schizoaffective disorder, un specified F25.9 [facility] [address] [id number] [address] [place] [phone] May, [facility] [address] [id number] [address] [place] [phone] May, Paranoid schizophrenia F20.0 [facility] [address] [id number] [address] [place] [phone] May, Paranoid schizophrenia F20.0 ; Posttraumatic stress disorder F43.10 and Attention deficit hyperactivity disorder (ADHD), inattentive type, 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 [facility] [address] [id number] [address] [place] [phone] Mar, [facility] [address] [id number] [address] [place] [phone] Mar, Paranoid schizophrenia F20.0 ; Posttraumatic stress disorder F43.10 and Attention deficit hyperactivity disorder (ADHD), inattentive type, 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 [facility] [address] [id number] [address] [place] [phone] Mar, Paranoid schizophrenia F20.0 [facility] [address] [id number] [address] [place] [phone] Mar, Paranoid schizophrenia F20.0 ; Attention deficit hyperactivity disorder (ADHD), inattentive type, 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 and Posttraumatic stress disorder F43.10 [facility] [address] [id number] [address] [place] [phone] Mar, [facility] [address] [id number] [address] [place] [phone] Mar, Paranoid schizophrenia F20.0 ; Posttraumatic stress disorder F43.10 and Attention deficit hyperactivity disorder (ADHD), inattentive type, 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 [facility] [address] [id number] [address] [place] [phone] February, [facility] [address] [id number] [address] [place] [phone] February, [facility] [address] [id number] [address] [place] [phone] February, [facility] [address] [id number] [address] [place] [phone] February, [facility] [address] [id number] [address] [place] [phone] Jan, Paranoid schizophrenia F20.0 [facility] [address] [id number] [address] [place] [address] [phone] Jan, Dental examination Z01.20 [facility] [address] [id number] [address] [place] [address] [id number] Jan, Dental caries K02.9 [facility] [address] [id number] [address] [place] [address] [id number] Jan, Dental examination Z01.20 [facility] [address] [id number] [place] [address] [id number] Dec, Encounter for dental examina tion Z01.20 [facility] [address] [id number] [address] [place] [phone] Dec, Paranoid schizophrenia F20.0 [facility] [address] [id number] [address] [place] [address] [id number] Dec, Dental examination Z01.20 [facility] [address] [id number] [address] [place] [phone] Dec, [facility] [address] [id number] [address] [place] [phone] Dec, Paranoid schizophrenia F20.0 ; Posttraumatic stress disorder F43.10 and Attention deficit hyperactivity disorder (ADHD), inattentive type, 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 [facility] [address] [id number] [address] [place] [phone] Nov, Schizoaffective disorder, un specified F25.9 [facility] [address] [id number] [address] [place] [phone] Oct, Paranoid schizophrenia F20.0 [facility] [address] [id number] [address] [place] [phone] Oct, [facility] [address] [facility] [id number] [address] [place] [phone] Sep, Paranoid schizophrenia F20.0 ; Posttraumatic stress disorder F43.10 and Attention deficit hyperactivity disorder (ADHD), inattentive type, 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 [facility] [address] [id number] [address] [place] [phone] Sep, [facility] [address] [id number] [address] [place] [phone] Sep, Paranoid schizophrenia F20.0 ; Posttraumatic stress disorder F43.10 and Attention deficit hyperactivity disorder (ADHD), inattentive type, 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 [facility] [address] [id number] [address] [place] [phone] Aug, Paranoid schizophrenia F20.0 [facility] [address] [id number] [address] [place] [phone] Aug, [facility] [address] [id number] [address] [place] [phone] Aug, Posttraumatic stress disorde r F43.10 ; Paranoid schizophrenia F20.0 and Attention deficit hyperactivity disorder (ADHD), inattentive type, 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 [facility] [address] [id number] [address] [place] [phone] Jul, Bipolar disorder, unspecifie d F31.9 [facility] [address] [id number] [address] [place] [phone] Jul, [facility] [address] [facility] [id number] [address] [place] [phone] Jun, [facility] [address] [id number] [address] [place] [phone] Jun, Schizoaffective disorder, ch ronic 295.72 ; Posttraumatic stress disorder 309.81 and Attention deficit disorder of childhood without mention of hyperactivity 314.00 [facility] [address] [id number] [address] [place] [phone] May, [facility] [address] [id number] [address] [place] [phone] May, [facility] [address] [id number] [address] [place] [phone] May, Schizoaffective disorder, ch ronic 295.72 ; Posttraumatic stress disorder 309.81 ; Attention deficit disorder of childhood without mention of hyperactivity 314.00 and Bipolar disorder, unspecified 296.80 [facility] [address] [id number] [address] [place] [phone] Apr, Schizoaffective disorder, ch ronic 295.72 [facility] [address] [id number] [address] [place] [phone] Apr, [facility] [address] [id number] [address] [place] [phone] Apr, Schizoaffective disorder, ch ronic 295.72 ; Posttraumatic stress disorder 309.81 and Attention deficit disorder of childhood without mention of hyperactivity 314.00 [facility] [address] [id number] [address] [place] [phone] Mar, Disorganized schizophrenia, 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 [facility] [address] [id number] [address] [place] [phone] Mar, [facility] [address] [id number] [address] [place] [phone] Mar, [facility] [address] [facility] [id number] [address] [place] [phone] Mar, [facility] [address] [id number] [address] [place] [phone] Mar, [facility] [address] [id number] [address] [place] [phone] February, Schizoaffective disorder, ch ronic 295.72 [facility] [address] [id number] [address] [place] [phone] February, [facility] [address] [id number] [address] [place] [phone] February, Attention 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 ; Posttraumatic stress disorder 309.81 and Schizoaffective disorder, chronic 295.72 [facility] [address] [id number] [address] [place] [phone] Jan, [facility] [address] [id number] [address] [place] [phone] Jan, [facility] [address] [id number] [address] [place] [phone] Jan, [facility] [address] [id number] [address] [place] [phone] Dec, [facility] [address] [id number] [address] [place] [phone] Dec, [facility] [address] [id number] [address] [place] [phone] Dec, [facility] [address] [id number] [address] [place] [phone] Dec, [facility] [address] [id number] [address] [place] [phone] Dec, [facility] [address] [id number] [address] [place] [phone] Dec, [facility] [address] [id number] [address] [place] [phone] Dec, [facility] [address] [id number] [address] [place] [phone] Dec, [facility] [address] [id number] [address] [place] [address], [place] [id number] Nov, [facility] [address] [id number] [address] [place] [address], [place] [id number] Nov, [facility] [address] [id number] [address] [place] [address], [place] [id number] Nov, [facility] [address] [id number] [address] [place] [address], [place] [id number] Nov, [facility] [address] [id number] [address] [place] [address], [place] [id number] Nov, [facility] [address] [id number] [address] [place] [address], [place] [id number] Nov, [facility] [address] [id number] [address] [place] [address], [place] [id number] Nov, [facility] [address] [id number] [address] [place] [address], [place] [id number] Nov, [facility] [address] [id number] [address] [place] [address], [place] [id number] Nov, [facility] [address] [id number] [address] [place] [address], [place] [id number] Nov, [facility] [address] [id number] [address] [place] [address], [place] [id number] Oct, [facility] [address] [id number] [address] [place] [address], [place] [id number] Oct, [facility] [address] [id number] [address] [place] [address], [place] [id number] Oct, [facility] [address] [id number] [address] [place] [address], [place] [id number] Oct, [facility] [address] [id number] [address] [place] [address], [place] [id number] Oct, [facility] [address] [id number] [address] [place] [address], [place] [id number] 13 Oct, 2014 [facility] [address] [id number] [address] [place] [address], [place] [id number] Oct, [facility] [address] [id number] [address] [place] [address], [place] [id number] 17 Sep, 2014 [facility] [address] [id number] [address] [place] [address], [place] [id number] 17 Sep, 2014 [facility] [address] [id number] [address] [place] [address], [place] [id number] Sep, [facility] [address] [id number] [address] [place] [address], [place] [id number] Sep, [facility] [address] [id number] [address] [place] [address], [place] [id number] Aug, [facility] [address] [id number] [address] [place] [address], [place] [id number] Aug, [facility] [address] [id number] [address] [place] [address], [place] [id number] Aug, [facility] [address] [id number] [address] [place] [address], [place] [id number] Aug, [facility] [address] [id number] [address] [place] [address], [place] [id number] Aug, [facility] [address] [id number] [address] [place] [address], [place] [id number] Aug, [facility] [address] [id number] [address] [place] [address], [place] [id number] Jul, [facility] [address] [id number] [address] [place] [address], [place] [id number] Jul, [facility] [address] [id number] [address] [place] [address], [place] [id number] Jul, [facility] [address] [id number] [address] [place] [address], [place] [id number] Jul, [facility] [address] [id number] [address] [place] [address], [place] [id number] 15 Jul, 2014 [facility] [address] [id number] [address] [place] [address], [place] [id number] 15 Jul, 2014 [facility] [address] [id number] [address] [place] [address], [place] [id number] 27 Jun, 2013 [facility] [address] [id number] [address] [place] [address], [place] [id number] 27 Jun, 2013 [facility] [address] [id number] [address] [place] [address], [place] [id number] 26 Jun, 2013 [facility] [address] [id number] [address] [place] [address], [place] [id number] 26 Jun, 2013 [facility] [address] [id number] [address] [place] [address], [place] [id number] 26 Jun, 2013 [facility] [address] [id number] [address] [place] [address], [place] [id number] 26 Jun, 2013 [facility] [address] [id number] [address] [place] [address], [place] [id number] 16 Jun, 2013 [facility] [address] [id number] [address] [place] [address], [place] [id number] 16 Jun, 2013 [facility] [address] [id number] [address] [place] [address], [place] [id number] 16 Jun, 2013 [facility] [address] [id number] [address] [place] [address], [place] [id number] 16 Jun, 2013 [facility] [address] [id number] [address] [place] [address], [place] [id number] 04 Jun, 2014 [facility] [address] [id number] [address] [place] [address], [place] [id number] May, [facility] [address] [id number] [address] [place] [address], [place] [id number] May, [facility] [address] [id number] [address] [place] [address], [place] [id number] May, [facility] [address] [id number] [facility] [place] [id number] May, [facility] [address] [id number] [address] [place] [address], [place] [id number] May, [facility] [address] [id number] [address] [place] [address], [place] [id number] May, [facility] [address] [id number] [address] [place] [address], [place] [id number] May, [facility] [address] [id number] [address] [place] [address], [place] [id number] May, [facility] [address] [id number] [address] [place] [address], [place] [id number] May, [facility] [address] [id number] [address] [place] [address], [place] [id number] May, [facility] [address] [id number] [address] [place] [address], [place] [id number] Apr, [facility] [address] [id number] [address] [place] [address], [place] [id number] Apr, [facility] [address] [id number] [address] [place] [address], [place] [id number] Apr, [facility] [address] [id number] [address] [place] [address], [place] [id number] Apr, [facility] [address] [id number] [address] [place] [address], [place] [id number] Apr, [facility] [address] [id number] [address] [place] [address], [place] [id number] Apr, [facility] [address] [id number] [address] [place] [address], [place] [id number] Apr, [facility] [address] [id number] [address] [place] [address], [place] [id number] Apr, [facility] [address] [id number] [facility] [place] [id number] 15 Apr, 2014 [facility] [address] [id number] [facility] [place] [id number] Apr, [facility] [address] [id number] [facility] [place] [id number] Mar, [facility] [address] [id number] [address] [place] [address], [place] [id number] Mar, [facility] [address] [id number] [address] [place] [address], [place] [id number] Mar, [facility] [address] [id number] [address] [place] [address], [place] [id number] 24 Mar, 2014 [facility] [address] [id number] [address] [place] [address], [place] [id number] Mar, [facility] [address] [id number] [address] [place] [address], [place] [id number] 18 Mar, 2014 [facility] [address] [id number] [address] [place] [address], [place] [id number] 18 Mar, 2014 [facility] [address] [id number] [address] [place] [address], [place] [id number] 16 Mar, 2014 [facility] [address] [id number] [address] [place] [address], [place] [id number] 16 Mar, 2014 [facility] [address] [id number] [address] [place] [address], [place] [id number] Mar, [facility] [address] [id number] [address] [place] [address], [place] [id number] 13 Mar, 2014 [facility] [address] [id number] [address] [place] [address], [place] [id number] 11 Mar, 2014 [facility] [address] [id number] [address] [place] [address], [place] [id number] 11 Mar, 2014 [facility] [address] [id number] [address] [place] [address], [place] [id number] Mar, [facility] [address] [id number] [facility] [place] [id number] Mar, [facility] [address] [id number] [address] [place] [address], [place] [id number] Mar, [facility] [address] [id number] [address] [place] [address], [place] [id number] Mar, [facility] [address] [id number] [address] [place] [address], [place] [id number] Mar, [facility] [address] [id number] [address] [place] [address], [place] [id number] Mar, [facility] [address] [id number] [address] [place] [address], [place] [id number] Mar, [facility] [address] [id number] [address] [place] [address], [place] [id number] February, [facility] [address] [id number] [address] [place] [address], [place] [id number] February, [facility] [address] [id number] [address] [place] [address], [place] [id number] February, [facility] [address] [id number] [address] [place] [address], [place] [id number] February, [facility] [address] [id number] [address] [place] [address], [place] [id number] February, [facility] [address] [id number] [address] [place] [address], [place] [id number] February, [facility] [address] [id number] [address] [place] [address], [place] [id number] February, [facility] [address] [id number] [address] [place] [address], [place] [id number] February, [facility] [address] [id number] [address] [place] [address], [place] [id number] February, [facility] [address] [id number] [address] [place] [address], [place] [id number] February, [facility] [address] [id number] [address] [place] [address], [place] [id number] February, [facility] [address] [id number] [address] [place] [address], [place] [id number] February, [facility] [address] [id number] [address] [place] [address], [place] [id number] February, [facility] [address] [id number] [address] [place] [address], [place] [id number] February, [facility] [address] [id number] [address] [place] [address], [place] [id number] February, [facility] [address] [id number] [address] [place] [address], [place] [id number] February, [facility] [address] [id number] [address] [place] [address], [place] [id number] February, [facility] [address] [id number] [address] [place] [address], [place] [id number] February, [facility] [address] [id number] [address] [place] [address], [place] [id number] February, [facility] [address] [id number] [address] [place] [address], [place] [id number] February, [facility] [address] [id number] [address] [place] [address], [place] [id number] February, [facility] [address] [id number] [address] [place] [address], [place] [id number] Jan, [facility] [address] [id number] [address] [place] [address], [place] [id number] Jan, [facility] [address] [id number] [address] [place] [address], [place] [id number] Jan, [facility] [address] [id number] [address] [place] [address], [place] [id number] Jan, [facility] [address] [id number] [address] [place] [address], [place] [id number] 18 Jan, 2014 [facility] [address] [id number] [address] [place] [address], [place] [id number] 18 Jan, 2014 [facility] [address] [id number] [address] [place] [address], [place] [id number] 10 Jan, 2014 [facility] [address] [id number] [address] [place] [address], [place] [id number] Jan, [facility] [address] [id number] [address] [place] [address], [place] [id number] 21 Dec, 2013 [facility] [address] [id number] [address] [place] [address], [place] [id number] 20 Dec, 2013 [facility] [address] [id number] [address] [place] [address], [place] [id number] 20 Dec, 2013 [facility] [address] [id number] [address] [place] [address], [place] [id number] 19 Dec, 2013 [facility] [address] [id number] [address] [place] [address], [place] [id number] 19 Dec, 2013 [facility] [address] [id number] [address] [place] [address], [place] [id number] 15 Dec, 2013 [facility] [address] [id number] [address] [place] [address], [place] [id number] 15 Dec, 2013 [facility] [address] [id number] [address] [place] [address], [place] [id number] 11 Dec, 2013 [facility] [address] [id number] [address] [place] [address], [place] [id number] 10 Dec, 2013 [facility] [address] [id number] [address] [place] [address], [place] [id number] 10 Dec, 2013 [facility] [address] [id number] [address] [place] [address], [place] [id number] 18 Nov, 2013 [facility] [address] [id number] [address] [place] [address], [place] [id number] Nov, [facility] [address] [id number] [address] [place] [address], [place] [id number] Nov, [facility] [address] [id number] [address] [place] [address], [place] [id number] Nov, [facility] [address] [id number] [address] [place] [address], [place] [id number] Nov, [facility] [address] [id number] [address] [place] [address], [place] [id number] Oct, [facility] [address] [id number] [address] [place] [address], [place] [id number] Oct, [facility] [address] [id number] [address] [place] [address], [place] [id number] Oct, [facility] [address] [id number] [address] [place] [address], [place] [id number] Sep, [facility] [address] [id number] [address] [place] [address], [place] [id number] Sep, [facility] [address] [id number] [address] [place] [address], [place] [id number] Sep, [facility] [address] [id number] [address] [place] [address], [place] [id number] Sep, [facility] [address] [id number] [address] [place] [address], [place] [id number] Aug, [facility] [address] [id number] [address] [place] [address], [place] [id number] Aug, [facility] [address] [id number] [address] [place] [address], [place] [id number] Jul, [facility] [address] [id number] [address] [place] [address], [place] [id number] Jul, [facility] [address] [id number] [address] [place] [id number] Jul, [facility] [address] [id number] [address] [place] [address], [place] [id number] Jul, [facility] [address] [id number] [address] [place] [address], [place] [id number] Jul, [facility] [address] [id number] [address] [place] [address], [place] [id number] Jun, [facility] [address] [id number] [address] [place] [address], [place] [id number] 25 Jun, 2013 [facility] [address] [id number] [address] [place] [address], [place] [id number] 19 Jun, 2013 [facility] [address] [id number] [address] [place] [address], [place] [id number] 18 Jun, 2013 [facility] [address] [id number] [address] [place] [address], [place] [id number] 16 Jun, 2013 [facility] [address] [id number] [address] [place] [address], [place] [id number] 12 Jun, 2013 [facility] [address] [id number] [address] [place] [address], [place] [id number] Jun, [facility] [address] [id number] [address] [place] [address], [place] [id number] 30 May, 2013 [facility] [address] [id number] [address] [place] [address], [place] [id number] May, [facility] [address] [id number] [address] [place] [address], [place] [id number] Apr, [facility] [address] [id number] [address] [place] [address], [place] [id number] Apr, [facility] [address] [id number] [address] [place] [address], [place] [id number] Apr, [facility] [address] [id number] [address] [place] [address], [place] [id number] Mar, [facility] [address] [id number] [address] [place] [address], [place] [id number] Mar, [facility] [address] [id number] [address] [place] [address], [place] [id number] February, [facility] [address] [id number] [address] [place] [address], [place] [id number] February, [facility] [address] [id number] [address] [place] [address], [place] [id number] February, [facility] [address] [id number] [address] [place] [address], [place] [id number] February, [facility] [address] [id number] [address] [place] [address], [place] [id number] Jan, [facility] [address] [id number] [address] [place] [address], [place] [id number] Jan, [facility] [address] [id number] [address] [place] [address], [place] [id number] Jan, [facility] [address] [id number] [address] [place] [address], [place] [id number] Dec, [facility] [address] [id number] [address] [place] [address], [place] [id number] Dec, [facility] [address] [id number] [address] [place] [address], [place] [id number] Dec, [facility] [address] [id number] [address] [place] [address], [place] [id number] Dec, [facility] [address] [id number] [address] [place] [address], [place] [id number] Nov, [facility] [address] [id number] [address] [place] [address], [place] [id number] Nov, [facility] [address] [id number] [address] [place] [address], [place] [id number] Oct, [facility] [address] [id number] [address] [place] [address], [place] [id number] Oct, [facility] [address] [id number] [address] [place] [address], [place] [id number] Oct, [facility] [address] [id number] [address] [place] [address], [place] [id number] Oct, [facility] [address] [id number] [address] [place] [address], [place] [id number] Aug, [facility] [address] [id number] [address] [place] [address], [place] [id number] Aug, [facility] [address] [id number] [address] [place] [address], [place] [id number] Jun, [facility] [address] [id number] [address] [place] [address], [place] [id number] May, [facility] [address] [id number] [address] [place] [address], [place] [id number] May, [facility] [address] [id number] [address] [place] [address], [place] [id number] Apr, [facility] [address] [id number] [address] [place] [address], [place] [id number] Apr, [facility] [address] [id number] [address] [place] [address], [place] [id number] Apr, [facility] [address] [id number] [address] [place] [address], [place] [id number] Mar, [facility] [address] [id number] [address] [place] [address], [place] [id number] Mar, [facility] [address] [id number] [address] [place] [address], [place] [id number] Mar, [facility] [address] [id number] [address] [place] [address], [place] [id number] Mar, [facility] [address] [id number] [address] [place] [address], [place] [id number] Mar, [facility] [address] [id number] [address] [place] [address], [place] [id number] February, [facility] [address] [id number] [address] [place] [address], [place] [id number] February, [facility] [address] [id number] [address] [place] [address], [place] [id number] February, [facility] [address] [id number] [address] [place] [address], [place] [id number] February, [facility] [address] [id number] [address] [place] [address], [place] [id number] February, [facility] [address] [id number] [address] [place] [address], [place] [id number] February, [facility] [address] [id number] [address] [place] [address], [place] [id number] February, [facility] [address] [id number] [address] [place] [address], [place] [id number] Jan, [facility] [address] [id number] [address] [place] [address], [place] [id number] Jan, [facility] [address] [id number] [address] [place] [address], [place] [id number] 17 Jan, 2012 [facility] [address] [id number] [address] [place] [address], [place] [id number] Jan, [facility] [address] [id number] [address] [place] [address], [place] [id number] Jan, [facility] [address] [id number] [address] [place] [address], [place] [id number] 04 Jan, 2012 [facility] [address] [id number] [address] [place] [address], [place] [id number] 30 Dec, 2011 [facility] [address] [id number] [address] [place] [address], [place] [id number] 24 Dec, 2011 [facility] [address] [id number] [address] [place] [address], [place] [id number] Dec, [facility] [address] [id number] [address] [place] [address], [place] [id number] 13 Dec, 2011 [facility] [address] [id number] [address] [place] [address], [place] [id number] 06 Dec, 2011 [facility] [address] [id number] [address] [place] [address], [place] [id number] 28 Nov, 2011 [facility] [address] [id number] [address] [place] [address], [place] [id number] Nov, [facility] [address] [id number] [address] [place] [address], [place] [id number] Nov, [facility] [address] [id number] [address] [place] [address], [place] [id number] 14 Nov, 2011 [facility] [address] [id number] [address] [place] [address], [place] [id number] Nov, [facility] [address] [id number] [address] [place] [address], [place] [id number] Nov, [facility] [address] [id number] [address] [place] [address], [place] [id number] Oct, [facility] [address] [id number] [address] [place] [address], [place] [id number] Oct, [facility] [address] [id number] [address] [place] [address], [place] [id number] Oct, [facility] [address] [id number] [address] [place] [address], [place] [id number] Oct, [facility] [address] [id number] [address] [place] [address], [place] [id number] Oct, [facility] [address] [id number] [address] [place] [address], [place] [id number] Sep, [facility] [address] [id number] [address] [place] [address], [place] [id number] Sep, [facility] [address] [id number] [address] [place] [address], [place] [id number] Sep, [facility] [address] [id number] [address] [place] [address], [place] [id number] 14 Sep, 2011 [facility] [address] [id number] [address] [place] [address], [place] [id number] 14 Sep, 2011 [facility] [address] [id number] [address] [place] [address], [place] [id number] 13 Sep, 2011 [facility] [address] [id number] [address] [place] [address], [place] [id number] 12 Sep, 2011 [facility] [address] [id number] [address] [place] [address], [place] [id number] 09 Sep, 2011 [facility] [address] [id number] [address] [place] [address], [place] [id number] 05 Sep, 2011 [facility] [address] [id number] [address] [place] [address], [place] [id number] 30 Aug, 2011 [facility] [address] [id number] [address] [place] [address], [place] [id number] 30 Aug, 2011 [facility] [address] [id number] [address] [place] [address], [place] [id number] Aug, [facility] [address] [id number] [address] [place] [address], [place] [id number] Aug, [facility] [address] [id number] [address] [place] [address], [place] [id number] Aug, [facility] [address] [id number] [address] [place] [id number] 22 Aug, 2011 [facility] [address] [id number] [address] [place] [address], [place] [id number] 16 Aug, 2011 [facility] [address] [id number] [address] [place] [address], [place] [id number] 16 Aug, 2011 [facility] [address] [id number] [address] [place] [id number] 10 Aug, 2011 [facility] [address] [id number] [address] [place] [id number] Aug, [facility] [address] [id number] [address] [place] [address], [place] [id number] Aug, [facility] [address] [id number] [address] [place] [id number] Aug, [facility] [address] [id number] [address] [place] [address], [place] [id number] Jul, [facility] [address] [id number] [address] [place] [address], [place] [id number] Jul, [facility] [address] [id number] [address] [place] [address], [place] [id number] Jul, [facility] [address] [id number] [address] [place] [address], [place] [id number] Jul, [facility] [address] [id number] [address] [place] [id number] Jul, [facility] [address] [id number] [address] [place] [address], [place] [id number] Jul, [facility] [address] [id number] [address] [place] [id number] Jul, [facility] [address] [id number] [address] [place] [id number] Jul, [facility] [address] [id number] [address] [place] [phone] Jul, [facility] [address] [id number] [address] [place] [id number] Jul, [facility] [address] [id number] [address] [place] [id number] Nov, [facility] [address] [id number] [address] [place] [id number] Aug, [facility] [address] [id number] [address] [place] [id number] Aug, [facility] [address] [facility] [id number] [address] [address] Aug, [facility] [address] [facility] [id number] [address] [address] 03 Aug, 2010 [facility] [address] [facility] [id number] [address] [address] Jul, IMMUNIZATIONS No Known Immunizations SOCIAL HISTORY Never Assessed REASON FOR VISIT PLAN OF CARE VITAL SIGNS Height 65.25 in 2013-07-18 Weight 195 lbs 2013-07-18 Temperature 98.3 degrees Fahrenheit 2013-07-18 Heart Rate 78 bpm 2013-07-18 Respiratory Rate 24 2013-07-18 Blood pressure systolic 110 mmHg 2013-07-18 Blood pressure diastolic 86 mmHg 2013-07-18 MEDICATIONS Unknown Medications RESULTS No Results PROCEDURES Procedure Date Ordered Result Body Site THER/PROPH/DIAG INJ, SC/IM Jul 18, 2013 INSTRUCTIONS MEDICATIONS ADMINISTERED No Known Medications MEDICAL [...] Suicide attempt by hanging 2015 Hospitalization History [facility] 01/30/2018-02/10/20 08 Hospitalization History [facility] 05/04/18- Hospitalization History [facility] - 5 days
--- OUTSIDE RECORDS SUMMARY | 2020-04-04 01:42 | XMS REPORT ---
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 10296191 Problem Primary insomnia F51.01 Active 397 2004 Problem Gastroesophageal reflux disease without esophagitis K21.9 Active 598902423 Problem Posttraumatic stress disorder F43.10 Active 21057618 Problem High risk medication use Z79.899 Activ e 369725125 Problem Borderline personality disorder F60.3 Active 02224445 Problem Schizoaffective disorder, depressive type F25.1 Active [id number] ALLERGIES No Information ENCOUNTERS Encounter Location Date Diagnosis [facility] [address] [id number] [address] [place] [phone] Mar, [facility] [address] [id number] [address] [place] [phone] February, Posttraumatic stress disorde r F43.10 ; Attention deficit hyperactivity disorder (ADHD), inattentive type, 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 ; Borderline personality disorder F60.3 ; Schizoaffective disorder, depressive type F25.1 and Primary insomnia F51.01 [place] [address] [facility] [id number] [address] [place] [phone] 16 Jan, 2020 [place] [address] [facility] [id number] [address] [place] [phone] Jan, [place] [address] [facility] [id number] [address] [place] [phone] Jan, [place] [address] [facility] [id number] [address] [place] [phone] Jan, Posttraumatic stress disorde r F43.10 ; Attention deficit hyperactivity disorder (ADHD), inattentive type, 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 ; Borderline personality disorder F60.3 and Schizoaffective disorder, depressive type F25.1 [place] [address] [facility] [id number] [address] [place] [phone] Dec, Paranoid schizophrenia F20.0 ; Attention deficit hyperactivity disorder (ADHD), inattentive type, 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 ; Posttraumatic stress disorder F43.10 and Borderline personality disorder F60.3 [place] [address] [facility] [id number] [address] [place] [phone] Nov, Paranoid schizophrenia F20.0 ; Attention deficit hyperactivity disorder (ADHD), inattentive type, 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 ; Posttraumatic stress disorder F43.10 and Borderline personality disorder F60.3 [place] [address] [facility] [id number] [address] [place] [phone] Nov, [place] [address] [facility] [id number] [address] [place] [phone] Oct, Paranoid schizophrenia F20.0 ; Attention deficit hyperactivity disorder (ADHD), inattentive type, 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 ; Posttraumatic stress disorder F43.10 and Borderline personality disorder F60.3 [facility] [address] [facility] [id number] [address] [place] [phone] Oct, [facility] [address] [facility] [id number] [address] [place] [phone] Sep, Paranoid schizophrenia F20.0 ; Attention deficit hyperactivity disorder (ADHD), inattentive type, 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 [address] [facility] [id number] [address] [place] [phone] Aug, Acute bronchitis, unspecifie d organism J20.9 [facility] [address] [facility] [id number] [address] [place] [phone] Aug, [facility] [address] [facility] [id number] [address] [place] [address] Aug, [facility] [address] [facility] [id number] [address] [place] [address] Jul, Paranoid schizophrenia F20.0 ; Attention deficit hyperactivity disorder (ADHD), inattentive type, 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 ; Posttraumatic stress disorder F43.10 and Borderline personality disorder F60.3 [facility] [address] [facility] [id number] [address] [place] [address] Jul, [facility] [address] [facility] [id number] [address] [place] [address] Jun, Paranoid schizophrenia F20.0 ; 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 Z79.899 ; Attention deficit hyperactivity disorder (ADHD), inattentive type, 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 ; Posttraumatic stress disorder F43.10 and Borderline personality disorder F60.3 [facility] [address] [id number] [address] [place] [address] Jun, Paranoid schizophrenia F20.0 ; Attention deficit hyperactivity disorder (ADHD), inattentive type, 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 ; Posttraumatic stress disorder F43.10 ; Borderline personality disorder F60.3 and 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 Z79.899 [facility] [address] [id number] [address] [place] [address] Apr, Paranoid schizophrenia F20.0 ; Posttraumatic stress disorder F43.10 ; Attention deficit hyperactivity disorder (ADHD), inattentive type, 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 and Borderline personality disorder F60.3 [facility] [address] [id number] [address] [place] [phone] Apr, Paranoid schizophrenia F20.0 [facility] [address] [id number] [address] [place] [phone] Apr, Paranoid schizophrenia F20.0 ; Posttraumatic stress disorder F43.10 ; Attention deficit hyperactivity disorder (ADHD), inattentive type, 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 and Borderline personality disorder F60.3 [facility] [address] [id number] [address] [place] [phone] Mar, Paranoid schizophrenia F20.0 [facility] [address] [id number] [address] [place] [address] Mar, Paranoid schizophrenia F20.0 ; Posttraumatic stress disorder F43.10 ; Attention deficit hyperactivity disorder (ADHD), inattentive type, 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 and Borderline personality disorder F60.3 [facility] [address] [id number] [address] [place] [id number] February, Paranoid schizophrenia F20.0 [facility] [address] [id number] [address] [place] [address] Jan, Paranoid schizophrenia F20.0 ; Posttraumatic stress disorder F43.10 ; Attention deficit hyperactivity disorder (ADHD), inattentive type, 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 and Borderline personality disorder F60.3 [facility] [address] [facility] [id number] [address] [place] [address] Dec, Paranoid schizophrenia F20.0 ; Posttraumatic stress disorder F43.10 ; Attention deficit hyperactivity disorder (ADHD), inattentive type, 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 and Borderline personality disorder F60.3 [facility] [address] [facility] [id number] [address] [place] [phone] Dec, Paranoid schizophrenia F20.0 ; Posttraumatic stress disorder F43.10 ; Attention deficit hyperactivity disorder (ADHD), inattentive type, 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 and Borderline personality disorder F60.3 [facility] [address] [facility] [id number] [address] [place] [address] Oct, Paranoid schizophrenia F20.0 ; Posttraumatic stress disorder F43.10 ; Attention deficit hyperactivity disorder (ADHD), inattentive type, 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 and Borderline personality disorder F60.3 [facility] [address] [facility] [id number] [address] [place] [address] Oct, Paranoid schizophrenia F20.0 ; Posttraumatic stress disorder F43.10 ; Attention deficit hyperactivity disorder (ADHD), inattentive type, 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 and Borderline personality disorder F60.3 [facility] [address] [facility] [id number] [address] [place] [id number] Aug, [facility] [address] [facility] [id number] [address] [place] [address] Aug, Paranoid schizophrenia F20.0 ; Posttraumatic stress disorder F43.10 ; Attention deficit hyperactivity disorder (ADHD), inattentive type, 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 and Borderline personality disorder F60.3 [facility] [address] [facility] [id number] [address] [place] [phone] Jul, Dry skin dermatitis L85.3 [facility] [address] [id number] [address] [place] [phone] Jul, [facility] [address] [id number] [address] [place] [phone] Jul, Paranoid schizophrenia F20.0 [facility] [address] [id number] [address] [place] [phone] May, Paranoid schizophrenia F20.0 ; Posttraumatic stress disorder F43.10 ; Attention deficit hyperactivity disorder (ADHD), inattentive type, 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 and Borderline personality disorder F60.3 [facility] [address] [id number] [address] [place] [address] May, [facility] [address] [id number] [address] [place] [address] May, Paranoid schizophrenia F20.0 [facility] [address] [id number] [address] [place] [address] May, Paranoid schizophrenia F20.0 ; Posttraumatic stress disorder F43.10 ; Attention deficit hyperactivity disorder (ADHD), inattentive type, 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 and Borderline personality disorder F60.3 [facility] [address] [id number] [address] [place] [address] Apr, [facility] [address] [id number] [address] [place] [address] Apr, Paranoid schizophrenia F20.0 ; Posttraumatic stress disorder F43.10 ; Attention deficit hyperactivity disorder (ADHD), inattentive type, 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 and Borderline personality disorder F60.3 [facility] [address] [id number] [address] [place] [address] Apr, [facility] [address] [id number] [address] [place] [address] Apr, Schizoaffective disorder, de pressive type F25.1 and Borderline personality disorder F60.3 [facility] [address] [id number] [address] [place] [address] Apr, Paranoid schizophrenia F20.0 ; Posttraumatic stress disorder F43.10 ; Attention deficit hyperactivity disorder (ADHD), inattentive type, 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 and Borderline personality disorder F60.3 [facility] [address] [id number] [address] [address] Apr, [facility] [address] [id number] [address] [place] [address] Apr, Paranoid schizophrenia F20.0 ; Posttraumatic stress disorder F43.10 ; Attention deficit hyperactivity disorder (ADHD), inattentive type, 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 and Borderline personality disorder F60.3 [facility] [address] [id number] [address] [place] [address] Apr, [facility] [address] [id number] [address] [place] [address] Mar, Paranoid schizophrenia F20.0 [facility] [address] [id number] [address] [place] [address] Mar, [facility] [address] [id number] [address] [place] [address] Mar, Paranoid schizophrenia F20.0 ; Posttraumatic stress disorder F43.10 ; Attention deficit hyperactivity disorder (ADHD), inattentive type, 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 and Borderline personality disorder F60.3 [facility] [address] [id number] [address] [place] [phone] February, Paranoid schizophrenia F20.0 [facility] [address] [id number] [address] [place] [address] February, Paranoid schizophrenia F20.0 ; Posttraumatic stress disorder F43.10 ; Attention deficit hyperactivity disorder (ADHD), inattentive type, 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 and Borderline personality disorder F60.3 [facility] [address] [id number] [address] [place] [address] February, Paranoid schizophrenia F20.0 ; Posttraumatic stress disorder F43.10 ; Attention deficit hyperactivity disorder (ADHD), inattentive type, 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 and Borderline personality disorder F60.3 [facility] [address] [id number] [address] [place] [address] February, [facility] [address] [id number] [address] [place] [id number] February, Paranoid schizophrenia F20.0 [facility] [address] [id number] [address] [place] [phone] February, Paranoid schizophrenia F20.0 [facility] [address] [id number] [address] [place] [address] February, Paranoid schizophrenia F20.0 ; Posttraumatic stress disorder F43.10 ; Attention deficit hyperactivity disorder (ADHD), inattentive type, 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 and Borderline personality disorder F60.3 [facility] [address] [id number] [address] [place] [id number] Jan, Paranoid schizophrenia F20.0 ; Posttraumatic stress disorder F43.10 ; Attention deficit hyperactivity disorder (ADHD), inattentive type, 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 and Borderline personality disorder F60.3 [facility] [address] [id number] [address] [place] [phone] Jan, Paranoid schizophrenia F20.0 [facility] [address] [id number] [address] [place] [address] Jan, Paranoid schizophrenia F20.0 [facility] [address] [facility] [id number] [address] [place] [address] Jan, Paranoid schizophrenia F20.0 ; Posttraumatic stress disorder F43.10 ; Attention deficit hyperactivity disorder (ADHD), inattentive type, 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 and Borderline personality disorder F60.3 [facility] [address] [id number] [address] [place] [address] Dec, [facility] [address] [id number] [address] [place] [address] Nov, Paranoid schizophrenia F20.0 ; Posttraumatic stress disorder F43.10 ; Attention deficit hyperactivity disorder (ADHD), inattentive type, 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 and Borderline personality disorder F60.3 [facility] [address] [id number] [address] [place] [address] Nov, [facility] [address] [id number] [address] [place] [address] Oct, Paranoid schizophrenia F20.0 [facility] [address] [id number] [address] [place] [address] Oct, Paranoid schizophrenia F20.0 ; Posttraumatic stress disorder F43.10 ; Attention deficit hyperactivity disorder (ADHD), inattentive type, 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 ; Borderline personality disorder F60.3 and 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 Z79.899 [facility] [address] [id number] [address] [place] [address] Oct, [facility] [address] [id number] [address] [place] [address] Oct, [facility] [address] [id number] [address] [place] [address] Sep, [facility] [address] [id number] [address] [place] [address] Sep, Paranoid schizophrenia F20.0 ; Posttraumatic stress disorder F43.10 ; Attention deficit hyperactivity disorder (ADHD), inattentive type, 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 and Borderline personality disorder F60.3 [facility] [address] [id number] [address] [place] [address] Sep, Paranoid schizophrenia F20.0 [facility] [address] [id number] [address] [place] [address] Aug, Paranoid schizophrenia F20.0 ; Posttraumatic stress disorder F43.10 ; Attention deficit hyperactivity disorder (ADHD), inattentive type, 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 and Borderline personality disorder F60.3 [facility] [address] [id number] [address] [place] [address] Aug, Paranoid schizophrenia F20.0 ; Posttraumatic stress disorder F43.10 ; Attention deficit hyperactivity disorder (ADHD), inattentive type, 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 and Borderline personality disorder F60.3 [facility] [address] [id number] [address] [place] [address] Aug, [facility] [address] [id number] [address] [place] [address] Jul, Paranoid schizophrenia F20.0 ; Posttraumatic stress disorder F43.10 ; Attention deficit hyperactivity disorder (ADHD), inattentive type, 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 and Borderline personality disorder F60.3 [facility] [address] [id number] [address] [place] [address] Jul, Paranoid schizophrenia F20.0 [facility] [address] [facility] [id number] [address] [place] [address] Jul, Paranoid schizophrenia F20.0 ; Posttraumatic stress disorder F43.10 ; Attention deficit hyperactivity disorder (ADHD), inattentive type, 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 and Borderline personality disorder F60.3 [facility] [address] [id number] [address] [place] [address] Jun, Paranoid schizophrenia F20.0 ; Posttraumatic stress disorder F43.10 ; Attention deficit hyperactivity disorder (ADHD), inattentive type, 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 and Borderline personality disorder F60.3 [facility] [address] [facility] [id number] [address] [place] [address] May, Other penitentiary (current) dr gabriel parra Z79.899 [facility] [address] [id number] [address] [place] [phone] May, [facility] [address] [id number] [address] [place] [phone] May, [facility] [address] [facility] [id number] [address] [place] [phone] May, Attention deficit hyperactiv ity disorder (ADHD), inattentive type, mild F90.0 [facility] [address] [facility] [id number] [address] [place] [id number] May, [facility] [address] [facility] [id number] [address] [place] [address] May, Attention deficit hyperactiv ity disorder (ADHD), inattentive type, mild F90.0 [facility] [address] [id number] [address] [place] [address] May, Paranoid schizophrenia F20.0 ; Posttraumatic stress disorder F43.10 ; Attention deficit hyperactivity disorder (ADHD), inattentive type, 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 and Other penitentiary (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 Z79.899 [facility] [address] [facility] [id number] [address] [place] [phone] Apr, Paranoid schizophrenia F20.0 [facility] [address] [facility] [id number] [address] [place] [address] Apr, Paranoid schizophrenia F20.0 ; Posttraumatic stress disorder F43.10 and Attention deficit hyperactivity disorder (ADHD), inattentive type, 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 [facility] [address] [facility] [id number] [address] [place] [phone] February, [facility] [address] [facility] [id number] [address] [place] [address] February, Paranoid schizophrenia F20.0 ; Posttraumatic stress disorder F43.10 and Attention deficit hyperactivity disorder (ADHD), inattentive type, 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 [facility] [address] [facility] [id number] [address] [place] [address] February, Paranoid schizophrenia F20.0 ; Posttraumatic stress disorder F43.10 and Attention deficit hyperactivity disorder (ADHD), inattentive type, 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 [facility] [address] [facility] [id number] [address] [place] [phone] Jan, Paranoid schizophrenia F20.0 ; Posttraumatic stress disorder F43.10 and Attention deficit hyperactivity disorder (ADHD), inattentive type, 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 [facility] [address] [id number] [address] [place] [id number] Dec, Dental examination Z01.20 [facility] [address] [id number] [address] [place] [id number] Nov, Dental examination Z01.20 [facility] [address] [id number] [address] [place] [id number] Nov, Dental examination Z01.20 [facility] [address] [id number] [address] [place] [address] [id number] 14 Nov, 2016 Dental caries K02.9 [facility] [address] [facility] [id number] [address] [place] [phone] 13 Nov, 2016 High risk medication use Z79 .899 [facility] [address] [facility] [id number] [address] [place] [address] Nov, Paranoid schizophrenia F20.0 ; Posttraumatic stress disorder F43.10 ; Attention deficit hyperactivity disorder (ADHD), inattentive type, 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 and Borderline personality disorder in adult F60.3 [facility] [address] [id number] [address] [place] [id number] Oct, Dental caries K02.9 [facility] [address] [facility] [id number] [address] [place] [address] Sep, Paranoid schizophrenia F20.0 ; Posttraumatic stress disorder F43.10 and Attention deficit hyperactivity disorder (ADHD), inattentive type, 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 [facility] [address] [facility] [id number] [address] [place] [phone] Aug, Paranoid schizophrenia F20.0 ; Posttraumatic stress disorder F43.10 and Attention deficit hyperactivity disorder (ADHD), inattentive type, 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 [facility] [address] [facility] [id number] [address] [place] [phone] Aug, Strep throat J02.0 and Cough R05 [facility] [address] [facility] [id number] [address] [place] [place] [phone] Aug, [facility] [address] [id number] [address] [place] [id number] Jul, Paranoid schizophrenia F20.0 ; Posttraumatic stress disorder F43.10 and Attention deficit hyperactivity disorder (ADHD), inattentive type, 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 [facility] [address] [id number] [address] [place] [id number] Jul, [facility] [address] [id number] [address] [place] [id number] Jun, Paranoid schizophrenia F20.0 ; Posttraumatic stress disorder F43.10 and Attention deficit hyperactivity disorder (ADHD), inattentive type, 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 [facility] [address] [id number] [address] [place] [id number] Jun, Dental examination Z01.20 [facility] [address] [id number] [address] [place] [phone] Jun, [facility] [address] [id number] [address] [place] [phone] May, Paranoid schizophrenia F20.0 [facility] [address] [id number] [address] [place] [id number] May, Paranoid schizophrenia F20.0 ; Posttraumatic stress disorder F43.10 and Attention deficit hyperactivity disorder (ADHD), inattentive type, 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 [facility] [address] [id number] [address] [place] [phone] May, [facility] [address] [id number] [address] [place] [id number] May, Paranoid schizophrenia F20.0 [facility] [address] [id number] [address] [place] [id number] May, [facility] [address] [id number] [address] [place] [id number] May, Paranoid schizophrenia F20.0 [facility] [address] [id number] [address] [place] [id number] May, Schizoaffective disorder, un specified F25.9 [facility] [address] [id number] [address] [place] [phone] May, Schizoaffective disorder, un specified F25.9 [facility] [address] [id number] [address] [place] [phone] May, [facility] [address] [id number] [address] [place] [phone] May, Paranoid schizophrenia F20.0 [facility] [address] [id number] [address] [place] [phone] May, Paranoid schizophrenia F20.0 ; Posttraumatic stress disorder F43.10 and Attention deficit hyperactivity disorder (ADHD), inattentive type, 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 [facility] [address] [id number] [address] [place] [id number] Mar, [facility] [address] [id number] [address] [place] [phone] Mar, Paranoid schizophrenia F20.0 ; Posttraumatic stress disorder F43.10 and Attention deficit hyperactivity disorder (ADHD), inattentive type, 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 [facility] [address] [id number] [address] [place] [id number] Mar, Paranoid schizophrenia F20.0 [facility] [address] [id number] [address] [place] [phone] Mar, Paranoid schizophrenia F20.0 ; Attention deficit hyperactivity disorder (ADHD), inattentive type, 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 and Posttraumatic stress disorder F43.10 [facility] [address] [id number] [address] [place] [phone] Mar, [facility] [address] [id number] [address] [place] [id number] Mar, Paranoid schizophrenia F20.0 ; Posttraumatic stress disorder F43.10 and Attention deficit hyperactivity disorder (ADHD), inattentive type, 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 [facility] [address] [id number] [address] [place] [phone] February, [facility] [address] [id number] [address] [place] [phone] February, [facility] [address] [id number] [address] [place] [phone] February, [facility] [address] [id number] [address] [place] [phone] February, [facility] [address] [id number] [address] [place] [phone] Jan, Paranoid schizophrenia F20.0 [facility] [address] [id number] [address] [place] [id number] Jan, Dental examination Z01.20 [facility] [address] [id number] [address] [place] [address] [id number] Jan, Dental caries K02.9 [facility] [address] [id number] [address] [place] [address] [id number] Jan, Dental examination Z01.20 [facility] [address] [id number] [place] [address] [id number] Dec, Encounter for dental examina tion Z01.20 [facility] [address] [id number] [address] [place] [id number] Dec, Paranoid schizophrenia F20.0 [facility] [address] [id number] [address] [place] [address] [id number] Dec, Dental examination Z01.20 [facility] [address] [id number] [address] [place] [phone] Dec, [facility] [address] [id number] [address] [place] [phone] Dec, Paranoid schizophrenia F20.0 ; Posttraumatic stress disorder F43.10 and Attention deficit hyperactivity disorder (ADHD), inattentive type, 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 [facility] [address] [id number] [address] [place] [phone] Nov, Schizoaffective disorder, un specified F25.9 [facility] [address] [id number] [address] [place] [phone] Oct, Paranoid schizophrenia F20.0 [facility] [address] [id number] [address] [place] [phone] Oct, [facility] [address] [facility] [id number] [address] [place] [phone] Sep, Paranoid schizophrenia F20.0 ; Posttraumatic stress disorder F43.10 and Attention deficit hyperactivity disorder (ADHD), inattentive type, 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 [facility] [address] [id number] [address] [place] [id number] Sep, [facility] [address] [id number] [address] [place] [phone] Sep, Paranoid schizophrenia F20.0 ; Posttraumatic stress disorder F43.10 and Attention deficit hyperactivity disorder (ADHD), inattentive type, 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 [facility] [address] [id number] [address] [place] [id number] Aug, Paranoid schizophrenia F20.0 [facility] [address] [id number] [address] [place] [phone] Aug, [facility] [address] [id number] [address] [place] [phone] Aug, Posttraumatic stress disorde r F43.10 ; Paranoid schizophrenia F20.0 and Attention deficit hyperactivity disorder (ADHD), inattentive type, 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 [facility] [address] [id number] [address] [place] [id number] Jul, Bipolar disorder, unspecifie d F31.9 [facility] [address] [id number] [address] [place] [phone] Jul, [facility] [address] [facility] [id number] [address] [place] [phone] Jun, [facility] [address] [id number] [address] [place] [phone] Jun, Schizoaffective disorder, ch ronic 295.72 ; Posttraumatic stress disorder 309.81 and Attention deficit disorder of childhood without mention of hyperactivity 314.00 [facility] [address] [id number] [address] [place] [phone] May, [facility] [address] [id number] [address] [place] [phone] May, [facility] [address] [id number] [address] [place] [phone] May, Schizoaffective disorder, ch ronic 295.72 ; Posttraumatic stress disorder 309.81 ; Attention deficit disorder of childhood without mention of hyperactivity 314.00 and Bipolar disorder, unspecified 296.80 [facility] [address] [id number] [address] [place] [phone] Apr, Schizoaffective disorder, ch ronic 295.72 [facility] [address] [id number] [address] [place] [phone] Apr, [facility] [address] [id number] [address] [place] [phone] Apr, Schizoaffective disorder, ch ronic 295.72 ; Posttraumatic stress disorder 309.81 and Attention deficit disorder of childhood without mention of hyperactivity 314.00 [facility] [address] [id number] [address] [place] [phone] Mar, Disorganized schizophrenia, 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 [facility] [address] [id number] [address] [place] [phone] Mar, [facility] [address] [id number] [address] [place] [phone] Mar, [facility] [address] [facility] [id number] [address] [place] [phone] Mar, [facility] [address] [id number] [address] [place] [phone] Mar, [facility] [address] [id number] [address] [place] [phone] February, Schizoaffective disorder, ch ronic 295.72 [facility] [address] [id number] [address] [place] [phone] February, [facility] [address] [id number] [address] [place] [phone] February, Attention 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 ; Posttraumatic stress disorder 309.81 and Schizoaffective disorder, chronic 295.72 [facility] [address] [id number] [address] [place] [phone] Jan, [facility] [address] [id number] [address] [place] [phone] Jan, [facility] [address] [id number] [address] [place] [phone] Jan, [facility] [address] [id number] [address] [place] [phone] Dec, [facility] [address] [id number] [address] [place] [phone] Dec, [facility] [address] [id number] [address] [place] [phone] Dec, [facility] [address] [id number] [address] [place] [phone] Dec, [facility] [address] [id number] [address] [place] [phone] Dec, [facility] [address] [id number] [address] [place] [phone] Dec, [facility] [address] [id number] [address] [place] [phone] Dec, [facility] [address] [id number] [address] [place] [phone] Dec, [facility] [address] [id number] [address] [place] [address], [place] [id number] Nov, [facility] [address] [id number] [address] [place] [address], [place] [address] Nov, [facility] [address] [id number] [address] [place] [address], [place] [address] Nov, [facility] [address] [id number] [address] [place] [address], [place] [id number] Nov, [facility] [address] [id number] [address] [place] [address], [place] [address] Nov, [facility] [address] [id number] [address] [place] [address], [place] [address] Nov, [facility] [address] [id number] [address] [place] [address], [place] [address] Nov, [facility] [address] [id number] [address] [place] [address], [place] [address] Nov, [facility] [address] [id number] [address] [place] [address], [place] [address] Nov, [facility] [address] [id number] [address] [place] [address], [place] [address] Nov, [facility] [address] [id number] [address] [place] [address], [place] [address] Oct, [facility] [address] [id number] [address] [place] [address], [place] [address] Oct, [facility] [address] [id number] [address] [place] [address], [place] [address] Oct, [facility] [address] [id number] [address] [place] [address], [place] [address] Oct, [facility] [address] [id number] [address] [place] [address], [place] [address] Oct, [facility] [address] [id number] [address] [place] [address], [place] [id number] 13 Oct, 2014 [facility] [address] [id number] [address] [place] [address], [place] [address] Oct, [facility] [address] [id number] [address] [place] [address], [place] [address] 17 Sep, 2014 [facility] [address] [id number] [address] [place] [address], [place] [address] 17 Sep, 2014 [facility] [address] [id number] [address] [place] [address], [place] [address] Sep, [facility] [address] [id number] [address] [place] [address], [place] [address] Sep, [facility] [address] [id number] [address] [place] [address], [place] [address] Aug, [facility] [address] [id number] [address] [place] [address], [place] [address] Aug, [facility] [address] [id number] [address] [place] [address], [place] [address] Aug, [facility] [address] [id number] [address] [place] [address], [place] [address] Aug, [facility] [address] [id number] [address] [place] [address], [place] [address] Aug, [facility] [address] [id number] [address] [place] [address], [place] [address] Aug, [facility] [address] [id number] [address] [place] [address], [place] [address] Jul, [facility] [address] [id number] [address] [place] [address], [place] [address] Jul, [facility] [address] [id number] [address] [place] [address], [place] [address] Jul, [facility] [address] [id number] [address] [place] [address], [place] [address] Jul, [facility] [address] [id number] [address] [place] [address], [place] [address] 15 Jul, 2014 [facility] [address] [id number] [address] [place] [address], [place] [address] 15 Jul, 2014 [facility] [address] [id number] [address] [place] [address], [place] [address] 27 Jun, 2013 [facility] [address] [id number] [address] [place] [address], [place] [address] 27 Jun, 2013 [facility] [address] [id number] [address] [place] [address], [place] [id number] 26 Jun, 2013 [facility] [address] [id number] [address] [place] [address], [place] [address] 26 Jun, 2013 [facility] [address] [id number] [address] [place] [address], [place] [address] 26 Jun, 2013 [facility] [address] [id number] [address] [place] [address], [place] [address] 26 Jun, 2013 [facility] [address] [id number] [address] [place] [address], [place] [address] 16 Jun, 2013 [facility] [address] [id number] [address] [place] [address], [place] [address] 16 Jun, 2013 [facility] [address] [id number] [address] [place] [address], [place] [address] 16 Jun, 2013 [facility] [address] [id number] [address] [place] [address], [place] [address] 16 Jun, 2013 [facility] [address] [id number] [address] [place] [address], [place] [address] 04 Jun, 2014 [facility] [address] [id number] [address] [place] [address], [place] [address] May, [facility] [address] [id number] [address] [place] [address], [place] [address] May, [facility] [address] [id number] [address] [place] [address], [place] [address] May, [facility] [address] [id number] [facility] [place] [address] May, [facility] [address] [id number] [address] [place] [address], [place] [address] May, [facility] [address] [id number] [address] [place] [address], [place] [address] May, [facility] [address] [id number] [address] [place] [address], [place] [address] May, [facility] [address] [id number] [address] [place] [address], [place] [address] May, [facility] [address] [id number] [address] [place] [address], [place] [address] May, [facility] [address] [id number] [address] [place] [address], [place] [address] May, [facility] [address] [id number] [address] [place] [address], [place] [address] Apr, [facility] [address] [id number] [address] [place] [address], [place] [address] Apr, [facility] [address] [id number] [address] [place] [address], [place] [address] Apr, [facility] [address] [id number] [address] [place] [address], [place] [address] Apr, [facility] [address] [id number] [address] [place] [address], [place] [address] Apr, [facility] [address] [id number] [address] [place] [address], [place] [address] Apr, [facility] [address] [id number] [address] [place] [address], [place] [address] Apr, [facility] [address] [id number] [address] [place] [address], [place] [address] Apr, [facility] [address] [id number] [facility] [place] [address] 15 Apr, 2014 [facility] [address] [id number] [facility] [place] [address] Apr, [facility] [address] [id number] [facility] [place] [address] Mar, [facility] [address] [id number] [address] [place] [address], [place] [address] Mar, [facility] [address] [id number] [address] [place] [address], [place] [address] Mar, [facility] [address] [id number] [address] [place] [address], [place] [address] 24 Mar, 2014 [facility] [address] [id number] [address] [place] [address], [place] [address] Mar, [facility] [address] [id number] [address] [place] [address], [place] [address] 18 Mar, 2014 [facility] [address] [id number] [address] [place] [address], [place] [address] 18 Mar, 2014 [facility] [address] [id number] [address] [place] [address], [place] [address] 16 Mar, 2014 [facility] [address] [id number] [address] [place] [address], [place] [address] 16 Mar, 2014 [facility] [address] [id number] [address] [place] [address], [place] [address] Mar, [facility] [address] [id number] [address] [place] [address], [place] [address] 13 Mar, 2014 [facility] [address] [id number] [address] [place] [address], [place] [address] 11 Mar, 2014 [facility] [address] [id number] [address] [place] [address], [place] [id number] 11 Mar, 2014 [facility] [address] [id number] [address] [place] [address], [place] [address] Mar, [facility] [address] [id number] [facility] [place] [address] Mar, [facility] [address] [id number] [address] [place] [address], [place] [address] Mar, [facility] [address] [id number] [address] [place] [address], [place] [address] Mar, [facility] [address] [id number] [address] [place] [address], [place] [address] Mar, [facility] [address] [id number] [address] [place] [address], [place] [address] Mar, [facility] [address] [id number] [address] [place] [address], [place] [id number] Mar, [facility] [address] [id number] [address] [place] [address], [place] [id number] February, [facility] [address] [id number] [address] [place] [address], [place] [id number] February, [facility] [address] [id number] [address] [place] [address], [place] [id number] February, [facility] [address] [id number] [address] [place] [address], [place] [id number] February, [facility] [address] [id number] [address] [place] [address], [place] [id number] February, [facility] [address] [id number] [address] [place] [address], [place] [id number] February, [facility] [address] [id number] [address] [place] [address], [place] [id number] February, [facility] [address] [id number] [address] [place] [address], [place] [id number] February, [facility] [address] [id number] [address] [place] [address], [place] [id number] February, [facility] [address] [id number] [address] [place] [address], [place] [id number] February, [facility] [address] [id number] [address] [place] [address], [place] [id number] February, [facility] [address] [id number] [address] [place] [address], [place] [id number] February, [facility] [address] [id number] [address] [place] [address], [place] [id number] February, [facility] [address] [id number] [address] [place] [address], [place] [id number] February, [facility] [address] [id number] [address] [place] [address], [place] [id number] February, [facility] [address] [id number] [address] [place] [address], [place] [id number] February, [facility] [address] [id number] [address] [place] [address], [place] [id number] February, [facility] [address] [id number] [address] [place] [address], [place] [id number] February, [facility] [address] [id number] [address] [place] [address], [place] [id number] February, [facility] [address] [id number] [address] [place] [address], [place] [id number] February, [facility] [address] [id number] [address] [place] [address], [place] [id number] February, [facility] [address] [id number] [address] [place] [address], [place] [id number] Jan, [facility] [address] [id number] [address] [place] [address], [place] [id number] Jan, [facility] [address] [id number] [address] [place] [address], [place] [id number] Jan, [facility] [address] [id number] [address] [place] [address], [place] [id number] Jan, [facility] [address] [id number] [address] [place] [address], [place] [id number] 18 Jan, 2014 [facility] [address] [id number] [address] [place] [address], [place] [id number] 18 Jan, 2014 [facility] [address] [id number] [address] [place] [address], [place] [id number] 10 Jan, 2014 [facility] [address] [id number] [address] [place] [address], [place] [id number] Jan, [facility] [address] [id number] [address] [place] [address], [place] [id number] 21 Dec, 2013 [facility] [address] [id number] [address] [place] [address], [place] [id number] 20 Dec, 2013 [facility] [address] [id number] [address] [place] [address], [place] [address] 20 Dec, 2013 [facility] [address] [id number] [address] [place] [address], [place] [id number] 19 Dec, 2013 [facility] [address] [id number] [address] [place] [address], [place] [id number] 19 Dec, 2013 [facility] [address] [id number] [address] [place] [address], [place] [id number] 15 Dec, 2013 [facility] [address] [id number] [address] [place] [address], [place] [id number] 15 Dec, 2013 [facility] [address] [id number] [address] [place] [address], [place] [id number] 11 Dec, 2013 [facility] [address] [id number] [address] [place] [address], [place] [id number] 10 Dec, 2013 [facility] [address] [id number] [address] [place] [address], [place] [id number] 10 Dec, 2013 [facility] [address] [id number] [address] [place] [address], [place] [id number] 18 Nov, 2013 [facility] [address] [id number] [address] [place] [address], [place] [address] Nov, [facility] [address] [id number] [address] [place] [address], [place] [address] Nov, [facility] [address] [id number] [address] [place] [address], [place] [address] Nov, [facility] [address] [id number] [address] [place] [address], [place] [address] Nov, [facility] [address] [id number] [address] [place] [address], [place] [id number] Oct, [facility] [address] [id number] [address] [place] [address], [place] [address] Oct, [facility] [address] [id number] [address] [place] [address], [place] [address] Oct, [facility] [address] [id number] [address] [place] [address], [place] [address] Sep, [facility] [address] [id number] [address] [place] [address], [place] [id number] Sep, [facility] [address] [id number] [address] [place] [address], [place] [address] Sep, [facility] [address] [id number] [address] [place] [address], [place] [id number] Sep, [facility] [address] [id number] [address] [place] [address], [place] [address] Aug, [facility] [address] [id number] [address] [place] [address], [place] [address] Aug, [facility] [address] [id number] [address] [place] [address], [place] [address] Jul, [facility] [address] [id number] [address] [place] [address], [place] [address] Jul, [facility] [address] [id number] [address] [place] [id number] Jul, [facility] [address] [id number] [address] [place] [address], [place] [address] Jul, [facility] [address] [id number] [address] [place] [address], [place] [id number] Jul, [facility] [address] [id number] [address] [place] [address], [place] [address] Jun, [facility] [address] [id number] [address] [place] [address], [place] [id number] 25 Jun, 2013 [facility] [address] [id number] [address] [place] [address], [place] [address] 19 Jun, 2013 [facility] [address] [id number] [address] [place] [address], [place] [id number] 18 Jun, 2013 [facility] [address] [id number] [address] [place] [address], [place] [id number] 16 Jun, 2013 [facility] [address] [id number] [address] [place] [address], [place] [id number] 12 Jun, 2013 [facility] [address] [id number] [address] [place] [address], [place] [id number] Jun, [facility] [address] [id number] [address] [place] [address], [place] [address] 30 May, 2013 [facility] [address] [id number] [address] [place] [address], [place] [address] May, [facility] [address] [id number] [address] [place] [address], [place] [id number] Apr, [facility] [address] [id number] [address] [place] [address], [place] [address] Apr, [facility] [address] [id number] [address] [place] [address], [place] [id number] Apr, [facility] [address] [id number] [address] [place] [address], [place] [address] Mar, [facility] [address] [id number] [address] [place] [address], [place] [address] Mar, [facility] [address] [id number] [address] [place] [address], [place] [address] February, [facility] [address] [id number] [address] [place] [address], [place] [address] February, [facility] [address] [id number] [address] [place] [address], [place] [address] February, [facility] [address] [id number] [address] [place] [address], [place] [address] February, [facility] [address] [id number] [address] [place] [address], [place] [address] Jan, [facility] [address] [id number] [address] [place] [address], [place] [id number] Jan, [facility] [address] [id number] [address] [place] [address], [place] [address] Jan, [facility] [address] [id number] [address] [place] [address], [place] [address] Dec, [facility] [address] [id number] [address] [place] [address], [place] [address] Dec, [facility] [address] [id number] [address] [place] [address], [place] [address] Dec, [facility] [address] [id number] [address] [place] [address], [place] [address] Dec, [facility] [address] [id number] [address] [place] [address], [place] [address] Nov, [facility] [address] [id number] [address] [place] [address], [place] [address] Nov, [facility] [address] [id number] [address] [place] [address], [place] [address] Oct, [facility] [address] [id number] [address] [place] [address], [place] [address] Oct, [facility] [address] [id number] [address] [place] [address], [place] [address] Oct, [facility] [address] [id number] [address] [place] [address], [place] [address] Oct, [facility] [address] [id number] [address] [place] [address], [place] [address] Aug, [facility] [address] [id number] [address] [place] [address], [place] [address] Aug, [facility] [address] [id number] [address] [place] [address], [place] [address] Jun, [facility] [address] [id number] [address] [place] [address], [place] [address] May, [facility] [address] [id number] [address] [place] [address], [place] [address] May, [facility] [address] [id number] [address] [place] [address], [place] [address] Apr, [facility] [address] [id number] [address] [place] [address], [place] [address] Apr, [facility] [address] [id number] [address] [place] [address], [place] [address] Apr, [facility] [address] [id number] [address] [place] [address], [place] [id number] Mar, [facility] [address] [id number] [address] [place] [address], [place] [address] Mar, [facility] [address] [id number] [address] [place] [address], [place] [address] Mar, [facility] [address] [id number] [address] [place] [address], [place] [address] Mar, [facility] [address] [id number] [address] [place] [address], [place] [address] Mar, [facility] [address] [id number] [address] [place] [address], [place] [address] February, [facility] [address] [id number] [address] [place] [address], [place] [address] February, [facility] [address] [id number] [address] [place] [address], [place] [address] February, [facility] [address] [id number] [address] [place] [address], [place] [address] February, [facility] [address] [id number] [address] [place] [address], [place] [address] February, [facility] [address] [id number] [address] [place] [address], [place] [id number] February, [facility] [address] [id number] [address] [place] [address], [place] [address] February, [facility] [address] [id number] [address] [place] [address], [place] [address] Jan, [facility] [address] [id number] [address] [place] [address], [place] [address] Jan, [facility] [address] [id number] [address] [place] [address], [place] [id number] 17 Jan, 2012 [facility] [address] [id number] [address] [place] [address], [place] [address] Jan, [facility] [address] [id number] [address] [place] [address], [place] [address] Jan, [facility] [address] [id number] [address] [place] [address], [place] [address] 04 Jan, 2012 [facility] [address] [id number] [address] [place] [address], [place] [id number] 30 Dec, 2011 [facility] [address] [id number] [address] [place] [address], [place] [address] 24 Dec, 2011 [facility] [address] [id number] [address] [place] [address], [place] [address] Dec, [facility] [address] [id number] [address] [place] [address], [place] [id number] 13 Dec, 2011 [facility] [address] [id number] [address] [place] [address], [place] [id number] 06 Dec, 2011 [facility] [address] [id number] [address] [place] [address], [place] [address] 28 Nov, 2011 [facility] [address] [id number] [address] [place] [address], [place] [address] Nov, [facility] [address] [id number] [address] [place] [address], [place] [address] Nov, [facility] [address] [id number] [address] [place] [address], [place] [address] 14 Nov, 2011 [facility] [address] [id number] [address] [place] [address], [place] [address] Nov, [facility] [address] [id number] [address] [place] [address], [place] [id number] Nov, [facility] [address] [id number] [address] [place] [address], [place] [address] Oct, [facility] [address] [id number] [address] [place] [address], [place] [id number] Oct, [facility] [address] [id number] [address] [place] [address], [place] [id number] Oct, [facility] [address] [id number] [address] [place] [address], [place] [address] Oct, [facility] [address] [id number] [address] [place] [address], [place] [address] Oct, [facility] [address] [id number] [address] [place] [address], [place] [address] Sep, [facility] [address] [id number] [address] [place] [address], [place] [address] Sep, [facility] [address] [id number] [address] [place] [address], [place] [address] Sep, [facility] [address] [id number] [address] [place] [address], [place] [address] 14 Sep, 2011 [facility] [address] [id number] [address] [place] [address], [place] [id number] 14 Sep, 2011 [facility] [address] [id number] [address] [place] [address], [place] [id number] 13 Sep, 2011 [facility] [address] [id number] [address] [place] [address], [place] [id number] 12 Sep, 2011 [facility] [address] [id number] [address] [place] [address], [place] [address] 09 Sep, 2011 [facility] [address] [id number] [address] [place] [address], [place] [address] 05 Sep, 2011 [facility] [address] [id number] [address] [place] [address], [place] [address] 30 Aug, 2011 [facility] [address] [id number] [address] [place] [address], [place] [address] 30 Aug, 2011 [facility] [address] [id number] [address] [place] [address], [place] [address] Aug, [facility] [address] [id number] [address] [place] [address], [place] [id number] Aug, [facility] [address] [id number] [address] [place] [address], [place] [address] Aug, [facility] [address] [id number] [address] [place] [id number] 22 Aug, 2011 [facility] [address] [id number] [address] [place] [address], [place] [id number] 16 Aug, 2011 [facility] [address] [id number] [address] [place] [address], [place] [address] 16 Aug, 2011 [facility] [address] [id number] [address] [place] [id number] 10 Aug, 2011 [facility] [address] [id number] [address] [place] [id number] Aug, [facility] [address] [id number] [address] [place] [address], [place] [address] Aug, [facility] [address] [id number] [address] [place] [id number] Aug, [facility] [address] [id number] [address] [place] [address], [place] [address] Jul, [facility] [address] [id number] [address] [place] [address], [place] [address] Jul, [facility] [address] [id number] [address] [place] [address], [place] [id number] Jul, [facility] [address] [id number] [address] [place] [address], [place] [address] Jul, [facility] [address] [id number] [address] [place] [id number] Jul, [facility] [address] [id number] [address] [place] [address], [place] [address] Jul, [facility] [address] [id number] [address] [place] [id number] Jul, [facility] [address] [id number] [address] [place] [id number] Jul, [facility] [address] [id number] [address] [place] [id number] Jul, [facility] [address] [id number] [address] [place] [id number] Jul, [facility] [address] [id number] [address] [place] [id number] Nov, [facility] [address] [id number] [address] [place] [id number] Aug, [facility] [address] [id number] [address] [place] [id number] Aug, [facility] [address] [facility] [id number] [place] [address] Aug, [facility] [address] [facility] [id number] [address] [place] [id number] Aug, [facility] [address] [facility] [id number] [address] [place] [id number] Jul, IMMUNIZATIONS No Known Immunizations SOCIAL HISTORY [...] Suicide attempt by hanging 2015 Hospitalization History [facility] 01/30/2018-02/10/20 08 Hospitalization History [facility] 05/04/18- [facility]ization History [facility]
--- OUTSIDE RECORDS SUMMARY | 2020-04-04 01:43 | XMS REPORT ---
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 29422816 Problem Primary insomnia F51.01 Active 397 2004 Problem Gastroesophageal reflux disease without esophagitis K21.9 Active 690753723 Problem Posttraumatic stress disorder F43.10 Active 27928210 Problem High risk medication use Z79.899 Activ e [id number] Problem Borderline personality disorder F60.3 Active 92929435 Problem Schizoaffective disorder, depressive type F25.1 Active [id number] ALLERGIES No Information ENCOUNTERS Encounter Location Date Diagnosis [facility] [address] [id number] [address] [place] [phone] February, [facility] [id number] [place] [phone] February, [facility] [address] [id number] [address] [place] [phone] Jan, Posttraumatic stress disorde r F43.10 [facility] [address] [facility] [id number] [address] [place] [phone] Jan, Heartburn R12 and Gastroesop hageal reflux disease without esophagitis K21.9 [facility] [address] [facility] [id number] [address] [place] [phone] Jan, Posttraumatic stress disorde r F43.10 ; Attention deficit hyperactivity disorder (ADHD), inattentive type, 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 ; Borderline personality disorder F60.3 ; Schizoaffective disorder, depressive type F25.1 and Primary insomnia F51.01 [facility] [address] [id number] [address] [place] [phone] 16 Jan, 2020 [facility] [address] [id number] [address] [place] [phone] 13 Jan, 2020 [facility] [address] [id number] [address] [place] [phone] Jan, [facility] [address] [id number] [address] [place] [phone] Jan, Posttraumatic stress disorde r F43.10 ; Attention deficit hyperactivity disorder (ADHD), inattentive type, 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 ; Borderline personality disorder F60.3 and Schizoaffective disorder, depressive type F25.1 [facility] [address] [facility] [id number] [address] [place] [phone] Dec, Paranoid schizophrenia F20.0 ; Attention deficit hyperactivity disorder (ADHD), inattentive type, 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 ; Posttraumatic stress disorder F43.10 and Borderline personality disorder F60.3 [facility] [address] [id number] [address] [place] [address] Nov, Paranoid schizophrenia F20.0 ; Attention deficit hyperactivity disorder (ADHD), inattentive type, 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 ; Posttraumatic stress disorder F43.10 and Borderline personality disorder F60.3 [facility] [address] [id number] [address] [place] [phone] Nov, [facility] [address] [id number] [address] [place] [phone] Oct, Paranoid schizophrenia F20.0 ; Attention deficit hyperactivity disorder (ADHD), inattentive type, 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 ; Posttraumatic stress disorder F43.10 and Borderline personality disorder F60.3 [facility] [address] [id number] [address] [place] [phone] Oct, [facility] [address] [facility] [id number] [address] [place] [phone] Sep, Paranoid schizophrenia F20.0 ; Attention deficit hyperactivity disorder (ADHD), inattentive type, 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 ; Posttraumatic stress disorder F43.10 and Borderline personality disorder F60.3 [facility] [address] [id number] [address] [place] [phone] Aug, Paranoid schizophrenia F20.0 ; Attention deficit hyperactivity disorder (ADHD), inattentive type, 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 ; Posttraumatic stress disorder F43.10 and Borderline personality disorder F60.3 [facility] [address] [id number] [address] [place] [phone] Aug, [facility] [address] [facility] [id number] [address] [place] [phone] Aug, Acute bronchitis, unspecifie d organism J20.9 [facility] [address] [facility] [id number] [address] [place] [id number] Aug, [facility] [address] [facility] [id number] [address] [place] [phone] Aug, [facility] [address] [facility] [id number] [address] [place] [phone] Jul, Paranoid schizophrenia F20.0 ; Attention deficit hyperactivity disorder (ADHD), inattentive type, 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 ; Posttraumatic stress disorder F43.10 and Borderline personality disorder F60.3 [facility] [address] [facility] [id number] [address] [place] [phone] Jul, [facility] [address] [id number] [address] [place] [phone] Jun, Paranoid schizophrenia F20.0 ; Other detention (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 Z79.899 ; Attention deficit hyperactivity disorder (ADHD), inattentive type, 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 ; Posttraumatic stress disorder F43.10 and Borderline personality disorder F60.3 [facility] [address] [facility] [id number] [address] [place] [phone] Jun, Paranoid schizophrenia F20.0 ; Attention deficit hyperactivity disorder (ADHD), inattentive type, 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 ; Posttraumatic stress disorder F43.10 ; Borderline personality disorder F60.3 and 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 Z79.899 [facility] [address] [facility] [id number] [address] [place] [phone] Apr, Paranoid schizophrenia F20.0 ; Posttraumatic stress disorder F43.10 ; Attention deficit hyperactivity disorder (ADHD), inattentive type, 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 and Borderline personality disorder F60.3 [facility] [address] [facility] [id number] [address] [place] [phone] Apr, Paranoid schizophrenia F20.0 [facility] [address] [facility] [id number] [address] [place] [phone] Apr, Paranoid schizophrenia F20.0 ; Posttraumatic stress disorder F43.10 ; Attention deficit hyperactivity disorder (ADHD), inattentive type, 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 and Borderline personality disorder F60.3 [facility] [address] [facility] [id number] [address] [place] [phone] Mar, Paranoid schizophrenia F20.0 [facility] [address] [facility] [id number] [address] [place] [phone] Mar, Paranoid schizophrenia F20.0 ; Posttraumatic stress disorder F43.10 ; Attention deficit hyperactivity disorder (ADHD), inattentive type, 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 and Borderline personality disorder F60.3 [facility] [address] [facility] [id number] [address] [place] [phone] February, Paranoid schizophrenia F20.0 [facility] [address] [facility] [id number] [address] [place] [address] Jan, Paranoid schizophrenia F20.0 ; Posttraumatic stress disorder F43.10 ; Attention deficit hyperactivity disorder (ADHD), inattentive type, 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 and Borderline personality disorder F60.3 [facility] [address] [facility] [id number] [address] [place] [phone] Dec, Paranoid schizophrenia F20.0 ; Posttraumatic stress disorder F43.10 ; Attention deficit hyperactivity disorder (ADHD), inattentive type, 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 and Borderline personality disorder F60.3 [facility] [address] [facility] [id number] [address] [place] [address] Dec, Paranoid schizophrenia F20.0 ; Posttraumatic stress disorder F43.10 ; Attention deficit hyperactivity disorder (ADHD), inattentive type, 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 and Borderline personality disorder F60.3 [facility] [address] [facility] [id number] [address] [place] [phone] Oct, Paranoid schizophrenia F20.0 ; Posttraumatic stress disorder F43.10 ; Attention deficit hyperactivity disorder (ADHD), inattentive type, 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 and Borderline personality disorder F60.3 [facility] [address] [facility] [id number] [address] [place] [address] Oct, Paranoid schizophrenia F20.0 ; Posttraumatic stress disorder F43.10 ; Attention deficit hyperactivity disorder (ADHD), inattentive type, 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 and Borderline personality disorder F60.3 [facility] [address] [facility] [id number] [address] [place] [phone] Aug, [facility] [address] [id number] [address] [place] [phone] Aug, Paranoid schizophrenia F20.0 ; Posttraumatic stress disorder F43.10 ; Attention deficit hyperactivity disorder (ADHD), inattentive type, 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 and Borderline personality disorder F60.3 [facility] [address] [facility] [id number] [address] [place] [phone] Jul, Dry skin dermatitis L85.3 [facility] [address] [facility] [id number] [address] [place] [phone] Jul, [facility] [address] [facility] [id number] [address] [place] [phone] Jul, Paranoid schizophrenia F20.0 [facility] [address] [facility] [id number] [address] [place] [phone] May, Paranoid schizophrenia F20.0 ; Posttraumatic stress disorder F43.10 ; Attention deficit hyperactivity disorder (ADHD), inattentive type, 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 and Borderline personality disorder F60.3 [facility] [address] [id number] [address] [place] [phone] May, [facility] [address] [id number] [address] [place] [phone] May, Paranoid schizophrenia F20.0 [facility] [address] [id number] [address] [place] [phone] May, Paranoid schizophrenia F20.0 ; Posttraumatic stress disorder F43.10 ; Attention deficit hyperactivity disorder (ADHD), inattentive type, 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 and Borderline personality disorder F60.3 [facility] [address] [id number] [address] [place] [address] Apr, [facility] [address] [id number] [address] [place] [address] Apr, Paranoid schizophrenia F20.0 ; Posttraumatic stress disorder F43.10 ; Attention deficit hyperactivity disorder (ADHD), inattentive type, 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 and Borderline personality disorder F60.3 [facility] [address] [id number] [address] [place] [phone] Apr, [facility] [address] [id number] [address] [place] [phone] Apr, Schizoaffective disorder, de pressive type F25.1 and Borderline personality disorder F60.3 [facility] [address] [id number] [address] [place] [address] Apr, Paranoid schizophrenia F20.0 ; Posttraumatic stress disorder F43.10 ; Attention deficit hyperactivity disorder (ADHD), inattentive type, 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 and Borderline personality disorder F60.3 [facility] [address] [id number] [address] [place] [address] Apr, [facility] [address] [id number] [address] [place] [phone] Apr, Paranoid schizophrenia F20.0 ; Posttraumatic stress disorder F43.10 ; Attention deficit hyperactivity disorder (ADHD), inattentive type, 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 and Borderline personality disorder F60.3 [facility] [address] [id number] [address] [place] [phone] Apr, [facility] [address] [id number] [address] [place] [phone] Mar, Paranoid schizophrenia F20.0 [facility] [address] [id number] [address] [place] [phone] Mar, [facility] [address] [id number] [address] [place] [address] Mar, Paranoid schizophrenia F20.0 ; Posttraumatic stress disorder F43.10 ; Attention deficit hyperactivity disorder (ADHD), inattentive type, 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 and Borderline personality disorder F60.3 [facility] [address] [id number] [address] [place] [address] February, Paranoid schizophrenia F20.0 [facility] [address] [id number] [address] [place] [address] February, Paranoid schizophrenia F20.0 ; Posttraumatic stress disorder F43.10 ; Attention deficit hyperactivity disorder (ADHD), inattentive type, 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 and Borderline personality disorder F60.3 [facility] [address] [id number] [address] [place] [phone] February, Paranoid schizophrenia F20.0 ; Posttraumatic stress disorder F43.10 ; Attention deficit hyperactivity disorder (ADHD), inattentive type, 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 and Borderline personality disorder F60.3 [facility] [address] [id number] [address] [place] [phone] February, [facility] [address] [id number] [address] [place] [phone] February, Paranoid schizophrenia F20.0 [facility] [address] [id number] [address] [place] [phone] February, Paranoid schizophrenia F20.0 [facility] [address] [id number] [address] [place] [phone] February, Paranoid schizophrenia F20.0 ; Posttraumatic stress disorder F43.10 ; Attention deficit hyperactivity disorder (ADHD), inattentive type, 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 and Borderline personality disorder F60.3 [facility] [address] [id number] [address] [place] [phone] Jan, Paranoid schizophrenia F20.0 ; Posttraumatic stress disorder F43.10 ; Attention deficit hyperactivity disorder (ADHD), inattentive type, 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 and Borderline personality disorder F60.3 [facility] [address] [id number] [address] [place] [phone] Jan, Paranoid schizophrenia F20.0 [facility] [address] [facility] [id number] [address] [place] [phone] Jan, Paranoid schizophrenia F20.0 [facility] [address] [id number] [address] [place] [address] Jan, Paranoid schizophrenia F20.0 ; Posttraumatic stress disorder F43.10 ; Attention deficit hyperactivity disorder (ADHD), inattentive type, 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 and Borderline personality disorder F60.3 [facility] [address] [facility] [id number] [address] [place] [phone] Dec, [facility] [address] [id number] [address] [place] [phone] Nov, Paranoid schizophrenia F20.0 ; Posttraumatic stress disorder F43.10 ; Attention deficit hyperactivity disorder (ADHD), inattentive type, 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 and Borderline personality disorder F60.3 [facility] [address] [id number] [address] [place] [phone] Nov, [facility] [address] [facility] [id number] [address] [place] [phone] Oct, Paranoid schizophrenia F20.0 [facility] [address] [id number] [address] [place] [phone] Oct, Paranoid schizophrenia F20.0 ; Posttraumatic stress disorder F43.10 ; Attention deficit hyperactivity disorder (ADHD), inattentive type, 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 ; Borderline personality disorder F60.3 and Other detention (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 Z79.899 [facility] [address] [id number] [address] [place] [address] Oct, [facility] [address] [id number] [address] [place] [phone] Oct, [facility] [address] [id number] [address] [place] [phone] Sep, [facility] [address] [id number] [address] [place] [address] Sep, Paranoid schizophrenia F20.0 ; Posttraumatic stress disorder F43.10 ; Attention deficit hyperactivity disorder (ADHD), inattentive type, 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 and Borderline personality disorder F60.3 [facility] [address] [id number] [address] [place] [address] Sep, Paranoid schizophrenia F20.0 [facility] [address] [id number] [address] [place] [phone] Aug, Paranoid schizophrenia F20.0 ; Posttraumatic stress disorder F43.10 ; Attention deficit hyperactivity disorder (ADHD), inattentive type, 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 and Borderline personality disorder F60.3 [facility] [address] [id number] [address] [place] [phone] Aug, Paranoid schizophrenia F20.0 ; Posttraumatic stress disorder F43.10 ; Attention deficit hyperactivity disorder (ADHD), inattentive type, 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 and Borderline personality disorder F60.3 [facility] [address] [id number] [address] [place] [address] Aug, [facility] [address] [id number] [address] [place] [phone] Jul, Paranoid schizophrenia F20.0 ; Posttraumatic stress disorder F43.10 ; Attention deficit hyperactivity disorder (ADHD), inattentive type, 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 and Borderline personality disorder F60.3 [facility] [address] [id number] [address] [place] [phone] Jul, Paranoid schizophrenia F20.0 [facility] [address] [id number] [address] [place] [phone] Jul, Paranoid schizophrenia F20.0 ; Posttraumatic stress disorder F43.10 ; Attention deficit hyperactivity disorder (ADHD), inattentive type, 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 and Borderline personality disorder F60.3 [facility] [address] [id number] [address] [place] [phone] Jun, Paranoid schizophrenia F20.0 ; Posttraumatic stress disorder F43.10 ; Attention deficit hyperactivity disorder (ADHD), inattentive type, 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 and Borderline personality disorder F60.3 [facility] [address] [facility] [id number] [address] [place] [phone] May, 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 parra Z79.899 [facility] [address] [id number] [address] [place] [phone] May, [facility] [address] [id number] [address] [place] [phone] May, [facility] [address] [id number] [address] [place] [phone] May, Attention deficit hyperactiv ity disorder (ADHD), inattentive type, mild F90.0 [facility] [address] [id number] [address] [place] [phone] May, [facility] [address] [id number] [address] [place] [address] May, Attention deficit hyperactiv ity disorder (ADHD), inattentive type, mild F90.0 [facility] [address] [id number] [address] [place] [address] May, Paranoid schizophrenia F20.0 ; Posttraumatic stress disorder F43.10 ; Attention deficit hyperactivity disorder (ADHD), inattentive type, 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 and 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 Z79.899 [facility] [address] [id number] [address] [place] [phone] Apr, Paranoid schizophrenia F20.0 [facility] [address] [id number] [address] [place] [phone] Apr, Paranoid schizophrenia F20.0 ; Posttraumatic stress disorder F43.10 and Attention deficit hyperactivity disorder (ADHD), inattentive type, 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 [facility] [address] [id number] [address] [place] [phone] February, [facility] [address] [id number] [address] [place] [phone] February, Paranoid schizophrenia F20.0 ; Posttraumatic stress disorder F43.10 and Attention deficit hyperactivity disorder (ADHD), inattentive type, 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 [facility] [address] [id number] [address] [place] [phone] February, Paranoid schizophrenia F20.0 ; Posttraumatic stress disorder F43.10 and Attention deficit hyperactivity disorder (ADHD), inattentive type, 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 [facility] [address] [id number] [address] [place] [address] Jan, Paranoid schizophrenia F20.0 ; Posttraumatic stress disorder F43.10 and Attention deficit hyperactivity disorder (ADHD), inattentive type, 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 [facility] [address] [id number] [address] [place] [id number] Dec, Dental examination Z01.20 [facility] [address] [id number] [address] [place] [id number] Nov, Dental examination Z01.20 [facility] [address] [id number] [address] [place] [id number] Nov, Dental examination Z01.20 [facility] [address] [id number] [place] [id number] 14 Nov, 2016 Dental caries K02.9 [facility] [address] [id number] [address] [place] [phone] 13 Nov, 2016 High risk medication use Z79 .899 [facility] [address] [id number] [address] [place] [id number] 01 Nov, 2016 Paranoid schizophrenia F20.0 ; Posttraumatic stress disorder F43.10 ; Attention deficit hyperactivity disorder (ADHD), inattentive type, 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 and Borderline personality disorder in adult F60.3 [facility] [address] [id number] [address] [place] [id number] Oct, Dental caries K02.9 [facility] [address] [address] [id number] [address] [place] [address] 05 Sep, 2016 Paranoid schizophrenia F20.0 ; Posttraumatic stress disorder F43.10 and Attention deficit hyperactivity disorder (ADHD), inattentive type, 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 [facility] [address] [facility] [id number] [address] [place] [address] Aug, Paranoid schizophrenia F20.0 ; Posttraumatic stress disorder F43.10 and Attention deficit hyperactivity disorder (ADHD), inattentive type, 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 [facility] [address] [facility] [id number] [address] [place] [address] Aug, Strep throat J02.0 and Cough R05 [facility] [address] [id number] [address] [place] [address] Aug, [facility] [address] [id number] [address] [place] [address] 24 Jul, 2016 Paranoid schizophrenia F20.0 ; Posttraumatic stress disorder F43.10 and Attention deficit hyperactivity disorder (ADHD), inattentive type, 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 [facility] [address] [id number] [address] [place] [address] Jul, [facility] [address] [facility] [id number] [address] [place] [address] Jun, Paranoid schizophrenia F20.0 ; Posttraumatic stress disorder F43.10 and Attention deficit hyperactivity disorder (ADHD), inattentive type, 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 [facility] [address] [id number] [address] [place] [id number] Jun, Dental examination Z01.20 [facility] [address] [id number] [address] [place] [address] Jun, [facility] [address] [id number] [address] [place] [address] May, Paranoid schizophrenia F20.0 [facility] [address] [id number] [address] [place] [address] May, Paranoid schizophrenia F20.0 ; Posttraumatic stress disorder F43.10 and Attention deficit hyperactivity disorder (ADHD), inattentive type, 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 [facility] [address] [id number] [address] [place] [address] May, [facility] [address] [id number] [address] [place] [address] May, Paranoid schizophrenia F20.0 [facility] [address] [id number] [address] [place] [address] May, [facility] [address] [id number] [address] [place] [address] May, Paranoid schizophrenia F20.0 [facility] [address] [id number] [address] [place] [address] May, Schizoaffective disorder, un specified F25.9 [facility] [address] [id number] [address] [place] [address] May, Schizoaffective disorder, un specified F25.9 [facility] [address] [id number] [address] [place] [address] May, [facility] [address] [id number] [address] [place] [address] May, Paranoid schizophrenia F20.0 [facility] [address] [id number] [address] [place] [address] May, Paranoid schizophrenia F20.0 ; Posttraumatic stress disorder F43.10 and Attention deficit hyperactivity disorder (ADHD), inattentive type, 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 [facility] [address] [id number] [address] [place] [address] Mar, [facility] [address] [id number] [address] [place] [address] Mar, Paranoid schizophrenia F20.0 ; Posttraumatic stress disorder F43.10 and Attention deficit hyperactivity disorder (ADHD), inattentive type, 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 [facility] [address] [id number] [address] [place] [address] Mar, Paranoid schizophrenia F20.0 [facility] [address] [id number] [address] [place] [address] Mar, Paranoid schizophrenia F20.0 ; Attention deficit hyperactivity disorder (ADHD), inattentive type, 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 and Posttraumatic stress disorder F43.10 [facility] [address] [id number] [address] [place] [address] Mar, [facility] [address] [id number] [address] [place] [address] Mar, Paranoid schizophrenia F20.0 ; Posttraumatic stress disorder F43.10 and Attention deficit hyperactivity disorder (ADHD), inattentive type, 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 [facility] [address] [id number] [address] [place] [address] February, [facility] [address] [id number] [address] [place] [address] February, [facility] [address] [id number] [address] [place] [address] February, [facility] [address] [id number] [address] [place] [address] February, [facility] [address] [id number] [address] [place] [address] Jan, Paranoid schizophrenia F20.0 [facility] [address] [id number] [address] [place] [id number] Jan, Dental examination Z01.20 [facility] [address] [id number] [address] [place] [address] [id number] Jan, Dental caries K02.9 [facility] [address] [id number] [address] [place] [id number] Jan, Dental examination Z01.20 [facility] [address] [id number] [address] [place] [address] [id number] Dec, Encounter for dental examina tion Z01.20 [facility] [address] [id number] [address] [place] [address] Dec, Paranoid schizophrenia F20.0 [facility] [address] [id number] [address] [place] [address] [id number] Dec, Dental examination Z01.20 [facility] [address] [id number] [address] [place] [address] Dec, [facility] [address] [id number] [address] [place] [address] Dec, Paranoid schizophrenia F20.0 ; Posttraumatic stress disorder F43.10 and Attention deficit hyperactivity disorder (ADHD), inattentive type, 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 [facility] [address] [id number] [address] [place] [address] Nov, Schizoaffective disorder, un specified F25.9 [facility] [address] [id number] [address] [place] [address] Oct, Paranoid schizophrenia F20.0 [facility] [address] [id number] [address] [place] [address] Oct, [facility] [address] [id number] [address] [place] [address] Sep, Paranoid schizophrenia F20.0 ; Posttraumatic stress disorder F43.10 and Attention deficit hyperactivity disorder (ADHD), inattentive type, 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 [facility] [address] [facility] [id number] [address] [place] [address] Sep, [facility] [address] [facility] [id number] [address] [place] [address] Sep, Paranoid schizophrenia F20.0 ; Posttraumatic stress disorder F43.10 and Attention deficit hyperactivity disorder (ADHD), inattentive type, 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 [facility] [address] [id number] [address] [place] [address] Aug, Paranoid schizophrenia F20.0 [facility] [address] [id number] [address] [place] [address] Aug, [facility] [address] [facility] [id number] [address] [place] [address] Aug, Posttraumatic stress disorde r F43.10 ; Paranoid schizophrenia F20.0 and Attention deficit hyperactivity disorder (ADHD), inattentive type, 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 [facility] [address] [facility] [id number] [address] [place] [address] Jul, Bipolar disorder, unspecifie d F31.9 [facility] [address] [facility] [id number] [address] [place] [address] Jul, [facility] [address] [facility] [id number] [address] [place] [address] Jun, [facility] [address] [facility] [id number] [address] [place] [address] Jun, Schizoaffective disorder, ch ronic 295.72 ; Posttraumatic stress disorder 309.81 and Attention deficit disorder of childhood without mention of hyperactivity 314.00 [facility] [address] [facility] [id number] [address] [place] [address] May, [facility] [address] [id number] [address] [place] [address] May, [facility] [address] [facility] [id number] [address] [place] [address] May, Schizoaffective disorder, ch ronic 295.72 ; Posttraumatic stress disorder 309.81 ; Attention deficit disorder of childhood without mention of hyperactivity 314.00 and Bipolar disorder, unspecified 296.80 [facility] [address] [id number] [address] [place] [address] Apr, Schizoaffective disorder, ch ronic 295.72 [facility] [address] [facility] [id number] [address] [place] [address] Apr, [facility] [address] [facility] [id number] [address] [place] [address] Apr, Schizoaffective disorder, ch ronic 295.72 ; Posttraumatic stress disorder 309.81 and Attention deficit disorder of childhood without mention of hyperactivity 314.00 [facility] [address] [facility] [id number] [address] [place] [address] Mar, Disorganized schizophrenia, 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 [facility] [address] [facility] [id number] [address] [place] [address] Mar, [facility] [address] [facility] [id number] [address] [place] [address] Mar, [facility] [address] [facility] [id number] [address] [place] [address] Mar, [facility] [address] [facility] [id number] [address] [place] [address] Mar, [facility] [address] [facility] [id number] [address] [place] [id number] February, Schizoaffective disorder, ch ronic 295.72 [facility] [address] [facility] [id number] [address] [place] [address] February, [facility] [address] [facility] [id number] [address] [place] [address] February, Attention 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 ; Posttraumatic stress disorder 309.81 and Schizoaffective disorder, chronic 295.72 [facility] [address] [id number] [address] [place] [address] 29 Jan, 2015 [facility] [address] [id number] [address] [place] [address] Jan, [facility] [address] [id number] [address] [place] [address] Jan, [facility] [address] [id number] [address] [place] [address] Dec, [facility] [address] [id number] [address] [place] [address] Dec, [facility] [address] [id number] [address] [place] [address] Dec, [facility] [address] [id number] [address] [place] [address] Dec, [facility] [address] [id number] [address] [place] [address] Dec, [facility] [address] [id number] [address] [place] [address] Dec, [facility] [address] [id number] [address] [place] [address] Dec, [facility] [address] [id number] [address] [place] [phone] Dec, [facility] [address] [id number] [address] [place] [address] Nov, [facility] [address] [id number] [address] [place] [address] Nov, [facility] [address] [id number] [address] [place] [address] Nov, [facility] [address] [id number] [address] [place] [address], [place] [address] Nov, [facility] [address] [id number] [address] [place] [address], [place] [address] Nov, [facility] [address] [id number] [address] [place] [address], [place] [address] Nov, [facility] [address] [id number] [address] [place] [address], [place] [address] Nov, [facility] [address] [id number] [address] [place] [address], [place] [address] Nov, [facility] [address] [id number] [address] [place] [address], [place] [address] Nov, [facility] [address] [id number] [address] [place] [address], [place] [address] Nov, [facility] [address] [id number] [address] [place] [address], [place] [address] Oct, [facility] [address] [id number] [address] [place] [address], [place] [address] Oct, [facility] [address] [id number] [address] [place] [address], [place] [address] Oct, [facility] [address] [id number] [address] [place] [address], [place] [address] Oct, [facility] [address] [id number] [address] [place] [address] Oct, [facility] [address] [id number] [address] [place] [address], [place] [address] Oct, [facility] [address] [id number] [address] [place] [address], [place] [address] Oct, [facility] [address] [id number] [address] [place] [address], [place] [address] Sep, [facility] [address] [id number] [address] [place] [address], [place] [address] 17 Sep, 2014 [facility] [address] [id number] [address] [place] [address], [place] [address] 15 Sep, 2014 [facility] [address] [id number] [address] [place] [address], [place] [address] 15 Sep, 2014 [facility] [address] [id number] [address] [place] [address], [place] [address] Aug, [facility] [address] [id number] [address] [place] [address], [place] [address] Aug, [facility] [address] [id number] [address] [place] [address], [place] [address] Aug, [facility] [address] [id number] [address] [place] [address], [place] [address] Aug, [facility] [address] [id number] [address] [place] [address], [place] [address] Aug, [facility] [address] [id number] [address] [place] [address], [place] [address] Aug, [facility] [address] [id number] [address] [place] [address], [place] [address] 29 Jul, 2014 [facility] [address] [id number] [address] [place] [address], [place] [address] 29 Jul, 2014 [facility] [address] [id number] [address] [place] [address], [place] [address] 24 Jul, 2014 [facility] [address] [id number] [address] [place] [address], [place] [address] 24 Jul, 2014 [facility] [address] [id number] [address] [place] [address], [place] [address] Jul, [facility] [address] [id number] [address] [place] [address], [place] [address] 15 Jul, 2014 [facility] [address] [id number] [address] [place] [address], [place] [address] 27 Jun, 2013 [facility] [address] [id number] [facility] [address] 27 Jun, 2013 [facility] [address] [id number] [facility] [address] 26 Jun, 2013 [facility] [address] [id number] [facility] [address] 26 Jun, 2013 [facility] [address] [id number] [facility] [address] 26 Jun, 2013 [facility] [address] [id number] [facility] [address] 26 Jun, 2013 [facility] [address] [id number] [address] [place] [address], [place] [address] 16 Jun, 2013 [facility] [address] [id number] [address] [place] [address], [place] [address] 16 Jun, 2013 [facility] [address] [id number] [address] [place] [address], [place] [address] 16 Jun, 2013 [facility] [address] [id number] [address] [place] [address], [place] [address] 16 Jun, 2013 [facility] [address] [id number] [address] [place] [address], [place] [address] 04 Jun, 2013 [facility] [address] [id number] [address] [place] [address], [place] [address] May, [facility] [address] [id number] [address] [place] [address], [place] [address] May, [facility] [address] [id number] [address] [place] [address], [place] [address] May, [facility] [address] [id number] [address] [place] [address], [place] [address] May, [facility] [address] [id number] [address] [place] [address], [place] [address] May, [facility] [address] [id number] [facility] [address] May, [facility] [address] [id number] [address] [place] [address], [place] [address] May, [facility] [address] [id number] [address] [place] [address], [place] [address] May, [facility] [address] [id number] [address] [place] [address], [place] [address] May, [facility] [address] [id number] [address] [place] [address], [place] [address] May, [facility] [address] [id number] [address] [place] [address], [place] [address] Apr, [facility] [address] [id number] [address] [place] [address], [place] [address] Apr, [facility] [address] [id number] [address] [place] [address], [place] [address] Apr, [facility] [address] [id number] [address] [place] [address], [place] [address] Apr, [facility] [address] [id number] [address] [place] [address], [place] [address] Apr, [facility] [address] [id number] [address] [place] [address], [place] [address] Apr, [facility] [address] [id number] [address] [place] [address], [place] [address] Apr, [facility] [address] [id number] [address] [place] [address], [place] [address] Apr, [facility] [address] [id number] [address] [place] [address], [place] [address] Apr, [facility] [address] [id number] [address] [place] [address], [place] [address] Apr, [facility] [address] [id number] [address] [place] [address], [place] [address] Mar, [facility] [address] [id number] [facility] [address] Mar, [facility] [address] [id number] [facility] [address] 25 Mar, 2014 [facility] [address] [id number] [facility] [address] 24 Mar, 2014 [facility] [address] [id number] [address] [place] [address], [place] [address] 20 Mar, 2014 [facility] [address] [id number] [address] [place] [address], [place] [address] 18 Mar, 2014 [facility] [address] [id number] [address] [place] [address], [place] [address] 18 Mar, 2014 [facility] [address] [id number] [address] [place] [address], [place] [address] 16 Mar, 2014 [facility] [address] [id number] [address] [place] [address], [place] [address] 16 Mar, 2014 [facility] [address] [id number] [address] [place] [address], [place] [address] 13 Mar, 2014 [facility] [address] [id number] [address] [place] [address], [place] [address] 13 Mar, 2014 [facility] [address] [id number] [address] [place] [address], [place] [address] 11 Mar, 2014 [facility] [address] [id number] [address] [place] [address], [place] [address] 11 Mar, 2014 [facility] [address] [id number] [address] [place] [address], [place] [address] 10 Mar, 2014 [facility] [address] [id number] [address] [place] [address], [place] [address] 09 Mar, 2014 [facility] [address] [id number] [address] [place] [address], [place] [address] 09 Mar, 2014 [facility] [address] [id number] [address] [place] [address], [place] [address] Mar, [facility] [address] [id number] [address] [place] [address], [place] [address] Mar, [facility] [address] [id number] [address] [place] [address], [place] [address] Mar, [facility] [address] [id number] [address] [place] [address], [place] [address] Mar, [facility] [address] [id number] [address] [place] [address], [place] [address] February, [facility] [address] [id number] [address] [place] [address], [place] [address] February, [facility] [address] [id number] [address] [place] [address], [place] [address] February, [facility] [address] [id number] [address] [place] [address], [place] [address] February, [facility] [address] [id number] [address] [place] [address], [place] [address] February, [facility] [address] [id number] [address] [place] [address], [place] [address] February, [facility] [address] [id number] [address] [place] [address], [place] [address] February, [facility] [address] [id number] [address] [place] [address], [place] [address] February, [facility] [address] [id number] [address] [place] [address], [place] [address] February, [facility] [address] [id number] [address] [place] [address], [place] [address] February, [facility] [address] [id number] [address] [place] [address], [place] [address] February, [facility] [address] [id number] [address] [place] [address], [place] [address] February, [facility] [address] [id number] [address] [place] [address], [place] [address] February, [facility] [address] [id number] [address] [place] [address], [place] [address] February, [facility] [address] [id number] [address] [place] [address], [place] [address] February, [facility] [address] [id number] [address] [place] [address], [place] [address] February, [facility] [address] [id number] [address] [place] [address], [place] [address] February, [facility] [address] [id number] [address] [place] [address], [place] [address] February, [facility] [address] [id number] [address] [place] [address], [place] [address] February, [facility] [address] [id number] [address] [place] [address], [place] [address] February, [facility] [address] [id number] [address] [place] [address], [place] [address] February, [facility] [address] [id number] [address] [place] [address], [place] [address] Jan, [facility] [address] [id number] [address] [place] [address], [place] [address] Jan, [facility] [address] [id number] [address] [place] [address], [place] [address] Jan, [facility] [address] [id number] [address] [place] [address], [place] [address] Jan, [facility] [address] [id number] [address] [place] [address], [place] [address] Jan, [facility] [address] [id number] [address] [place] [address], [place] [address] Jan, [facility] [address] [id number] [address] [place] [address], [place] [address] Jan, [facility] [address] [id number] [facility] [address] 10 Jan, 2014 [facility] [address] [id number] [address] [place] [address], [place] [address] 21 Dec, 2013 [facility] [address] [id number] [address] [place] [address], [place] [address] 20 Dec, 2013 [facility] [address] [id number] [address] [place] [address], [place] [address] 20 Dec, 2013 [facility] [address] [id number] [address] [place] [address], [place] [address] 19 Dec, 2013 [facility] [address] [id number] [address] [place] [address], [place] [address] 19 Dec, 2013 [facility] [address] [id number] [address] [place] [address], [place] [address] 15 Dec, 2013 [facility] [address] [id number] [address] [place] [address], [place] [address] 15 Dec, 2013 [facility] [address] [id number] [address] [place] [address], [place] [address] 11 Dec, 2013 [facility] [address] [id number] [address] [place] [address], [place] [address] 10 Dec, 2013 [facility] [address] [id number] [address] [place] [address], [place] [address] 10 Dec, 2013 [facility] [address] [id number] [address] [place] [address], [place] [address] 18 Nov, 2013 [facility] [address] [id number] [address] [place] [address], [place] [address] 17 Nov, 2013 [facility] [address] [id number] [address] [place] [address], [place] [address] 17 Nov, 2013 [facility] [address] [id number] [address] [place] [address], [place] [address] 05 Nov, 2013 [facility] [address] [id number] [address] [place] [address], [place] [address] Nov, [facility] [address] [id number] [address] [place] [address], [place] [address] Oct, [facility] [address] [id number] [address] [place] [address], [place] [address] Oct, [facility] [address] [id number] [address] [place] [address], [place] [address] Oct, [facility] [address] [id number] [address] [place] [address], [place] [address] Sep, [facility] [address] [id number] [address] [place] [address], [place] [address] Sep, [facility] [address] [id number] [address] [place] [address], [place] [address] Sep, [facility] [address] [id number] [address] [place] [address], [place] [address] Sep, [facility] [address] [id number] [address] [place] [address], [place] [address] Aug, [facility] [address] [id number] [address] [place] [address], [place] [address] Aug, [facility] [address] [id number] [address] [place] [address], [place] [address] Jul, [facility] [address] [id number] [address] [place] [address], [place] [address] Jul, [facility] [address] [id number] [address] [place] [address], [place] [address] Jul, [facility] [address] [id number] [address] [place] [address], [place] [address] Jul, [facility] [address] [id number] [address] [place] [address], [place] [address] Jul, [facility] [address] [id number] [address] [place] [address], [place] [address] Jun, [facility] [address] [id number] [address] [place] [address], [place] [address] 25 Jun, 2013 [facility] [address] [id number] [address] [place] [address], [place] [address] 19 Jun, 2013 [facility] [address] [id number] [address] [place] [address], [place] [address] 18 Jun, 2013 [facility] [address] [id number] [address] [place] [address], [place] [address] 16 Jun, 2013 [facility] [address] [id number] [address] [place] [address], [place] [address] 12 Jun, 2013 [facility] [address] [id number] [address] [place] [address], [place] [address] Jun, [facility] [address] [id number] [address] [place] [address], [place] [address] May, [facility] [address] [id number] [address] [place] [address], [place] [address] May, [facility] [address] [id number] [address] [place] [address], [place] [address] Apr, [facility] [address] [id number] [address] [place] [address], [place] [address] Apr, [facility] [address] [id number] [address] [place] [address], [place] [address] Apr, [facility] [address] [id number] [address] [place] [address], [place] [address] Mar, [facility] [address] [id number] [address] [place] [address], [place] [address] Mar, [facility] [address] [id number] [address] [place] [address], [place] [address] February, [facility] [address] [id number] [address] [place] [address], [place] [address] February, [facility] [address] [id number] [address] [place] [address], [place] [address] February, [facility] [address] [id number] [address] [place] [address], [place] [address] February, [facility] [address] [id number] [address] [place] [address], [place] [address] Jan, [facility] [address] [id number] [address] [place] [address], [place] [address] Jan, [facility] [address] [id number] [address] [place] [address], [place] [address] Jan, [facility] [address] [id number] [address] [place] [address], [place] [address] Dec, [facility] [address] [id number] [address] [place] [address], [place] [address] Dec, [facility] [address] [id number] [address] [place] [address], [place] [address] Dec, [facility] [address] [id number] [address] [place] [address], [place] [address] Dec, [facility] [address] [id number] [address] [place] [address], [place] [address] Nov, [facility] [address] [id number] [address] [place] [address], [place] [address] Nov, [facility] [address] [id number] [address] [place] [address], [place] [address] Oct, [facility] [address] [id number] [address] [place] [address], [place] [address] Oct, [facility] [address] [id number] [address] [place] [address], [place] [address] Oct, [facility] [address] [id number] [address] [place] [address], [place] [address] Oct, [facility] [address] [id number] [address] [place] [address], [place] [address] Aug, [facility] [address] [id number] [address] [place] [address], [place] [address] Aug, [facility] [address] [id number] [address] [place] [address], [place] [address] Jun, [facility] [address] [id number] [address] [place] [address], [place] [address] May, [facility] [address] [id number] [address] [place] [address], [place] [address] May, [facility] [address] [id number] [address] [place] [address], [place] [address] Apr, [facility] [address] [id number] [address] [place] [address], [place] [address] Apr, [facility] [address] [id number] [address] [place] [address], [place] [address] Apr, [facility] [address] [id number] [address] [place] [address], [place] [address] Mar, [facility] [address] [id number] [address] [place] [address], [place] [address] Mar, [facility] [address] [id number] [address] [place] [address], [place] [address] Mar, [facility] [address] [id number] [address] [place] [address], [place] [address] Mar, [facility] [address] [id number] [address] [place] [address], [place] [address] Mar, [facility] [address] [id number] [address] [place] [address], [place] [address] February, [facility] [address] [id number] [address] [place] [address], [place] [address] February, [facility] [address] [id number] [address] [place] [address], [place] [address] February, [facility] [address] [id number] [address] [place] [address], [place] [address] February, [facility] [address] [id number] [address] [place] [address], [place] [address] February, [facility] [address] [id number] [address] [place] [address], [place] [address] February, [facility] [address] [id number] [address] [place] [address], [place] [address] February, [facility] [address] [id number] [address] [place] [address], [place] [address] 25 Jan, 2012 [facility] [address] [id number] [address] [place] [address], [place] [address] 18 Jan, 2012 [facility] [address] [id number] [address] [place] [address], [place] [address] 17 Jan, 2012 [facility] [address] [id number] [address] [place] [address], [place] [address] 13 Jan, 2012 [facility] [address] [id number] [address] [place] [address], [place] [address] Jan, [facility] [address] [id number] [address] [place] [address], [place] [address] 04 Jan, 2012 [facility] [address] [id number] [address] [place] [address], [place] [address] 30 Dec, 2011 [facility] [address] [id number] [address] [place] [address], [place] [address] 24 Dec, 2011 [facility] [address] [id number] [address] [place] [address], [place] [address] 20 Dec, 2011 [facility] [address] [id number] [address] [place] [address], [place] [address] 13 Dec, 2011 [facility] [address] [id number] [address] [place] [address], [place] [address] 06 Dec, 2011 [facility] [address] [id number] [address] [place] [address], [place] [address] 28 Nov, 2011 [facility] [address] [id number] [address] [place] [address], [place] [address] 27 Nov, 2011 [facility] [address] [id number] [address] [place] [address], [place] [address] Nov, [facility] [address] [id number] [address] [place] [address], [place] [address] 14 Nov, 2011 [facility] [address] [id number] [address] [place] [address], [place] [address] 10 Nov, 2011 [facility] [address] [id number] [address] [place] [address], [place] [address] Nov, [facility] [address] [id number] [address] [place] [address], [place] [address] Oct, [facility] [address] [id number] [address] [place] [address], [place] [address] Oct, [facility] [address] [id number] [address] [place] [address], [place] [address] Oct, [facility] [address] [id number] [address] [place] [address], [place] [address] Oct, [facility] [address] [id number] [address] [place] [address], [place] [address] Oct, [facility] [address] [id number] [address] [place] [address], [place] [address] Sep, [facility] [address] [id number] [address] [place] [address], [place] [address] Sep, [facility] [address] [id number] [address] [place] [address], [place] [address] Sep, [facility] [address] [id number] [address] [place] [address], [place] [address] 14 Sep, 2011 [facility] [address] [id number] [address] [place] [address], [place] [address] 14 Sep, 2011 [facility] [address] [id number] [address] [place] [address], [place] [address] Sep, [facility] [address] [id number] [address] [place] [address], [place] [address] Sep, [facility] [address] [id number] [address] [place] [address], [place] [address] Sep, [facility] [address] [id number] [address] [place] [address], [place] [address] Sep, [facility] [address] [id number] [address] [place] [address], [place] [address] Aug, [facility] [address] [id number] [address] [place] [address], [place] [address] Aug, [facility] [address] [id number] [address] [place] [address], [place] [address] Aug, [facility] [address] [id number] [address] [place] [address], [place] [address] Aug, [facility] [address] [id number] [address] [place] [address], [place] [address] Aug, [facility] [address] [id number] [address] [place] [address], [place] [address] Aug, [facility] [address] [id number] [address] [place] [address] Aug, [facility] [address] [id number] [address] [place] [address] Aug, [facility] [address] [id number] [address] [place] [address] Aug, [facility] [address] [id number] [address] [place] [address], [place] [address] Aug, [facility] [address] [id number] [address] [place] [address] Aug, [facility] [address] [id number] [address] [place] [address] Aug, [facility] [address] [id number] [address] [place] [address] Jul, [facility] [address] [id number] [address] [place] [address] Jul, [facility] [address] [id number] [address] [place] [address] Jul, [facility] [address] [id number] [address] [place] [address] Jul, [facility] [address] [id number] [address] [place] [address] Jul, [facility] [address] [id number] [address] [place] [address] Jul, [facility] [address] [id number] [address] [place] [address] Jul, [facility] [address] [id number] [address] [place] [address] Jul, [facility] [address] [id number] [address] [place] [id number] Jul, [facility] [address] [id number] [address] [place] [id number] Jul, [facility] [address] [id number] [address] [place] [id number] Nov, [facility] [address] [id number] [address] [place] [phone] Aug, [facility] [address] [id number] [address] [place] [id number] Aug, [facility] [address] [id number] [address] [place] [id number] 16 Aug, 2010 [facility] [address] [id number] [address] [place] [phone] Aug, [facility] [address] [id number] [address] [place] [phone] Jul, IMMUNIZATIONS No Known Immunizations SOCIAL HISTORY Never Assessed REASON FOR VISIT PLAN OF CARE VITAL SIGNS Height 66 in 2012-04-12 Weight 196 lbs 2012-04-12 Heart Rate 68 bpm 2012-04-12 Respiratory Rate 20 2012-04-12 Blood pressure systolic 106 mmHg 2012-04-12 Blood pressure diastolic 74 mmHg 2012-04-12 MEDICATIONS Unknown Medications RESULTS No Results PROCEDURES [...] attempt by hanging 2015 Hospitalization History [facility] 01/30/2018-02/10/20 08 [facility]ization History [facility] 05/04/18- [facility] days
--- OUTSIDE RECORDS SUMMARY | 2020-04-04 01:43 | XMS REPORT ---
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 11817438 Problem Primary insomnia F51.01 Active 397 2004 Problem Gastroesophageal reflux disease without esophagitis K21.9 Active 549442570 Problem Posttraumatic stress disorder F43.10 Active 46083427 Problem High risk medication use Z79.899 Activ e 119502641 Problem Borderline personality disorder F60.3 Active 14982311 Problem Schizoaffective disorder, depressive type F25.1 Active 10742147 ALLERGIES No Information ENCOUNTERS Encounter Location Date Diagnosis [facility] [address] [id number] [address] [place] [id number] February, [facility] [address] [id number] [address] [place] [id number] February, [facility] [address] [id number] [address] [place] [phone] Jan, Posttraumatic stress disorde r F43.10 [facility] [address] [facility] [id number] [address] [place] [phone] Jan, Heartburn R12 and Gastroesop hageal reflux disease without esophagitis K21.9 [facility] [address] [facility] [id number] [address] [place] [phone] Jan, Posttraumatic stress disorde r F43.10 ; Attention deficit hyperactivity disorder (ADHD), inattentive type, 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 ; Borderline personality disorder F60.3 ; Schizoaffective disorder, depressive type F25.1 and Primary insomnia F51.01 [facility] [address] [facility] [id number] [address] [place] [id number] 16 Jan, 2020 [facility] [address] [facility] [id number] [address] [place] [phone] Jan, [facility] [address] [facility] [id number] [address] [place] [phone] Jan, [facility] [address] [facility] [id number] [address] [place] [phone] Jan, Posttraumatic stress disorde r F43.10 ; Attention deficit hyperactivity disorder (ADHD), inattentive type, 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 ; Borderline personality disorder F60.3 and Schizoaffective disorder, depressive type F25.1 [place] [address] [facility] [id number] [address] [place] [phone] Dec, Paranoid schizophrenia F20.0 ; Attention deficit hyperactivity disorder (ADHD), inattentive type, 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 ; Posttraumatic stress disorder F43.10 and Borderline personality disorder F60.3 [place] [address] [facility] [id number] [address] [place] [id number] Nov, Paranoid schizophrenia F20.0 ; Attention deficit hyperactivity disorder (ADHD), inattentive type, 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 ; Posttraumatic stress disorder F43.10 and Borderline personality disorder F60.3 [facility] [address] [facility] [id number] [address] [place] [phone] Nov, [facility] [address] [facility] [id number] [address] [place], [place] [address] Oct, Paranoid schizophrenia F20.0 ; Attention deficit hyperactivity disorder (ADHD), inattentive type, 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 ; Posttraumatic stress disorder F43.10 and Borderline personality disorder F60.3 [facility] [address] [facility] [id number] [address] [place] [phone] Oct, [facility] [address] [id number] [address] [place] [id number] Sep, Paranoid schizophrenia F20.0 ; Attention deficit hyperactivity disorder (ADHD), inattentive type, 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 ; Posttraumatic stress disorder F43.10 and Borderline personality disorder F60.3 [facility] [address] [id number] [address] [place] [phone] Aug, Paranoid schizophrenia F20.0 ; Attention deficit hyperactivity disorder (ADHD), inattentive type, 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 ; Posttraumatic stress disorder F43.10 and Borderline personality disorder F60.3 [facility] [address] [id number] [address] [place] [phone] Aug, [facility] [address] [facility] [id number] [address] [place] [phone] Aug, Acute bronchitis, unspecifie d organism J20.9 [facility] [address] [facility] [id number] [address] [place] [phone] Aug, [facility] [address] [id number] [address] [place] [phone] Aug, [facility] [address] [facility] [id number] [address] [place] [phone] Jul, Paranoid schizophrenia F20.0 ; Attention deficit hyperactivity disorder (ADHD), inattentive type, 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 ; Posttraumatic stress disorder F43.10 and Borderline personality disorder F60.3 [facility] [address] [id number] [address] [place] [id number] Jul, [facility] [address] [id number] [address] [place] [phone] Jun, Paranoid schizophrenia F20.0 ; 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 ; Attention deficit hyperactivity disorder (ADHD), inattentive type, 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 ; Posttraumatic stress disorder F43.10 and Borderline personality disorder F60.3 [facility] [address] [id number] [address] [place] [phone] Jun, Paranoid schizophrenia F20.0 ; Attention deficit hyperactivity disorder (ADHD), inattentive type, 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 ; Posttraumatic stress disorder F43.10 ; Borderline personality disorder F60.3 [place] [facility] 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 Z79.899 [facility] [address] [id number] [address] [place] [phone] Apr, Paranoid schizophrenia F20.0 ; Posttraumatic stress disorder F43.10 ; Attention deficit hyperactivity disorder (ADHD), inattentive type, 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 and Borderline personality disorder F60.3 [facility] [address] [id number] [address] [place] [phone] Apr, Paranoid schizophrenia F20.0 [facility] [address] [id number] [address] [place] [phone] Apr, Paranoid schizophrenia F20.0 ; Posttraumatic stress disorder F43.10 ; Attention deficit hyperactivity disorder (ADHD), inattentive type, 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 and Borderline personality disorder F60.3 [facility] [address] [id number] [address] [place] [phone] Mar, Paranoid schizophrenia F20.0 [facility] [address] [id number] [address] [place] [phone] Mar, Paranoid schizophrenia F20.0 ; Posttraumatic stress disorder F43.10 ; Attention deficit hyperactivity disorder (ADHD), inattentive type, 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 and Borderline personality disorder F60.3 [facility] [address] [id number] [address] [place] [phone] February, Paranoid schizophrenia F20.0 [facility] [address] [id number] [address] [place] [phone] Jan, Paranoid schizophrenia F20.0 ; Posttraumatic stress disorder F43.10 ; Attention deficit hyperactivity disorder (ADHD), inattentive type, 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 and Borderline personality disorder F60.3 [facility] [address] [id number] [address] [place] [id number] Dec, Paranoid schizophrenia F20.0 ; Posttraumatic stress disorder F43.10 ; Attention deficit hyperactivity disorder (ADHD), inattentive type, 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 and Borderline personality disorder F60.3 [facility] [address] [facility] [id number] [address] [place] [phone] Dec, Paranoid schizophrenia F20.0 ; Posttraumatic stress disorder F43.10 ; Attention deficit hyperactivity disorder (ADHD), inattentive type, 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 and Borderline personality disorder F60.3 [facility] [address] [facility] [id number] [address] [place] [id number] Oct, Paranoid schizophrenia F20.0 ; Posttraumatic stress disorder F43.10 ; Attention deficit hyperactivity disorder (ADHD), inattentive type, 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 and Borderline personality disorder F60.3 [facility] [address] [facility] [id number] [address] [place] [phone] Oct, Paranoid schizophrenia F20.0 ; Posttraumatic stress disorder F43.10 ; Attention deficit hyperactivity disorder (ADHD), inattentive type, 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 and Borderline personality disorder F60.3 [facility] [address] [facility] [id number] [address] [place] [phone] Aug, [facility] [address] [facility] [id number] [address] [place] [phone] Aug, Paranoid schizophrenia F20.0 ; Posttraumatic stress disorder F43.10 ; Attention deficit hyperactivity disorder (ADHD), inattentive type, 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0 ; Posttraumatic stress disorder F43.10 ; Attention deficit hyperactivity disorder (ADHD), inattentive type, 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 and Borderline personality disorder F60.3 [facility] [address] [id number] [address] [place] [phone] May, [facility] [address] [id number] [address] [place] [phone] May, Paranoid schizophrenia F20.0 [facility] [address] [id number] [address] [place] [phone] May, Paranoid schizophrenia F20.0 ; Posttraumatic stress disorder F43.10 ; Attention deficit hyperactivity disorder (ADHD), inattentive type, 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 and Borderline personality disorder F60.3 [facility] [address] [id number] [address] [place] [phone] Apr, [facility] [address] [id number] [address] [place] [phone] Apr, Paranoid schizophrenia F20.0 ; Posttraumatic stress disorder F43.10 ; Attention deficit hyperactivity disorder (ADHD), inattentive type, 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 and Borderline personality disorder F60.3 [facility] [address] [id number] [address] [place] [phone] Apr, [facility] [address] [id number] [address] [place] [id number] Apr, Schizoaffective disorder, de pressive type F25.1 and Borderline personality disorder F60.3 [facility] [address] [id number] [address] [place] [id number] Apr, Paranoid schizophrenia F20.0 ; Posttraumatic stress disorder F43.10 ; Attention deficit hyperactivity disorder (ADHD), inattentive type, 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 and Borderline personality disorder F60.3 [facility] [address] [id number] [address] [place] [phone] Apr, [facility] [address] [id number] [address] [place] [phone] Apr, Paranoid schizophrenia F20.0 ; Posttraumatic stress disorder F43.10 ; Attention deficit hyperactivity disorder (ADHD), inattentive type, 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 and Borderline personality disorder F60.3 [facility] [address] [id number] [address] [place] [phone] Apr, [facility] [address] [id number] [address] [place] [id number] Mar, Paranoid schizophrenia F20.0 [facility] [address] [id number] [address] [place] [phone] Mar, [facility] [address] [id number] [address] [place] [phone] Mar, Paranoid schizophrenia F20.0 ; Posttraumatic stress disorder F43.10 ; Attention deficit hyperactivity disorder (ADHD), inattentive type, 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 and Borderline personality disorder F60.3 [facility] [address] [id number] [address] [place] [id number] February, Paranoid schizophrenia F20.0 [facility] [address] [id number] [address] [place] [phone] February, Paranoid schizophrenia F20.0 ; Posttraumatic stress disorder F43.10 ; Attention deficit hyperactivity disorder (ADHD), inattentive type, 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 and Borderline personality disorder F60.3 [facility] [address] [id number] [address] [place] [id number] February, Paranoid schizophrenia F20.0 ; Posttraumatic stress disorder F43.10 ; Attention deficit hyperactivity disorder (ADHD), inattentive type, 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 and Borderline personality disorder F60.3 [facility] [address] [id number] [address] [place] [id number] February, [facility] [address] [id number] [address] [place] [phone] February, Paranoid schizophrenia F20.0 [facility] [address] [id number] [address] [place] [phone] February, Paranoid schizophrenia F20.0 [facility] [address] [id number] [address] [place] [id number] February, Paranoid schizophrenia F20.0 ; Posttraumatic stress disorder F43.10 ; Attention deficit hyperactivity disorder (ADHD), inattentive type, 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 and Borderline personality disorder F60.3 [facility] [address] [id number] [address] [place] [phone] Jan, Paranoid schizophrenia F20.0 ; Posttraumatic stress disorder F43.10 ; Attention deficit hyperactivity disorder (ADHD), inattentive type, 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 and Borderline personality disorder F60.3 [facility] [address] [id number] [address] [place] [phone] Jan, Paranoid schizophrenia F20.0 [facility] [address] [id number] [address] [place] [id number] Jan, Paranoid schizophrenia F20.0 [facility] [address] [id number] [address] [place] [phone] Jan, Paranoid schizophrenia F20.0 ; Posttraumatic stress disorder F43.10 ; Attention deficit hyperactivity disorder (ADHD), inattentive type, 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 and Borderline personality disorder F60.3 [facility] [address] [id number] [address] [place] [phone] Dec, [facility] [address] [id number] [address] [place] [id number] Nov, Paranoid schizophrenia F20.0 ; Posttraumatic stress disorder F43.10 ; Attention deficit hyperactivity disorder (ADHD), inattentive type, 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 and Borderline personality disorder F60.3 [facility] [address] [id number] [address] [place] [phone] Nov, [facility] [address] [id number] [address] [place] [id number] Oct, Paranoid schizophrenia F20.0 [facility] [address] [id number] [address] [place] [id number] Oct, Paranoid schizophrenia F20.0 ; Posttraumatic stress disorder F43.10 ; Attention deficit hyperactivity disorder (ADHD), inattentive type, 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 ; Borderline personality disorder F60.3 and [place] [facility] 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 Z79.899 [facility] [address] [id number] [address] [place] [id number] Oct, [facility] [address] [id number] [address] [place] [phone] Oct, [facility] [address] [facility] [id number] [address] [place] [id number] Sep, [facility] [address] [id number] [address] [place] [phone] Sep, Paranoid schizophrenia F20.0 ; Posttraumatic stress disorder F43.10 ; Attention deficit hyperactivity disorder (ADHD), inattentive type, 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 and Borderline personality disorder F60.3 [facility] [address] [facility] [id number] [address] [place] [phone] Sep, Paranoid schizophrenia F20.0 [facility] [address] [id number] [address] [place] [id number] Aug, Paranoid schizophrenia F20.0 ; Posttraumatic stress disorder F43.10 ; Attention deficit hyperactivity disorder (ADHD), inattentive type, 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 and Borderline personality disorder F60.3 [facility] [address] [id number] [address] [place] [id number] Aug, Paranoid schizophrenia F20.0 ; Posttraumatic stress disorder F43.10 ; Attention deficit hyperactivity disorder (ADHD), inattentive type, 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 and Borderline personality disorder F60.3 [facility] [address] [facility] [id number] [address] [place] [phone] Aug, [facility] [address] [id number] [address] [place] [id number] Jul, Paranoid schizophrenia F20.0 ; Posttraumatic stress disorder F43.10 ; Attention deficit hyperactivity disorder (ADHD), inattentive type, 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 and Borderline personality disorder F60.3 [facility] [address] [facility] [id number] [address] [place] [id number] Jul, Paranoid schizophrenia F20.0 [facility] [address] [id number] [address] [place] [id number] Jul, Paranoid schizophrenia F20.0 ; Posttraumatic stress disorder F43.10 ; Attention deficit hyperactivity disorder (ADHD), inattentive type, 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 and Borderline personality disorder F60.3 [facility] [address] [id number] [address] [place] [id number] Jun, Paranoid schizophrenia F20.0 ; Posttraumatic stress disorder F43.10 ; Attention deficit hyperactivity disorder (ADHD), inattentive type, 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 and Borderline personality disorder F60.3 [facility] [address] [facility] [id number] [address] [place] [phone] May, 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.899 [facility] [address] [facility] [id number] [address] [place] [phone] May, [facility] [address] [facility] [id number] [address] [place] [phone] May, [facility] [address] [facility] [id number] [address] [place] [phone] May, Attention deficit hyperactiv ity disorder (ADHD), inattentive type, mild F90.0 [facility] [address] [facility] [id number] [address] [place] [id number] May, [facility] [address] [facility] [id number] [address] [place] [id number] May, Attention deficit hyperactiv ity disorder (ADHD), inattentive type, mild F90.0 [facility] [address] [id number] [address] [place] [phone] May, Paranoid schizophrenia F20.0 ; Posttraumatic stress disorder F43.10 ; Attention deficit hyperactivity disorder (ADHD), inattentive type, 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 and [facility] [place] [facility] 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 Z79.899 [facility] [address] [id number] [address] [place] [id number] Apr, Paranoid schizophrenia F20.0 [facility] [address] [id number] [address] [place] [phone] Apr, Paranoid schizophrenia F20.0 ; Posttraumatic stress disorder F43.10 and Attention deficit hyperactivity disorder (ADHD), inattentive type, 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 [facility] [address] [id number] [address] [place] [phone] February, [facility] [address] [id number] [address] [place] [id number] February, Paranoid schizophrenia F20.0 ; Posttraumatic stress disorder F43.10 and Attention deficit hyperactivity disorder (ADHD), inattentive type, 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 [facility] [address] [id number] [address] [place] [id number] February, Paranoid schizophrenia F20.0 ; Posttraumatic stress disorder F43.10 and Attention deficit hyperactivity disorder (ADHD), inattentive type, 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 [facility] [address] [id number] [address] [place] [phone] Jan, Paranoid schizophrenia F20.0 ; Posttraumatic stress disorder F43.10 and Attention deficit hyperactivity disorder (ADHD), inattentive type, 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 [facility] [address] [id number] [address] [place] [address] [id number] Dec, Dental examination Z01.20 [facility] [address] [id number] [address] [place] [address] [id number] Nov, Dental examination Z01.20 [facility] [address] [id number] [address] [place] [address] [id number] 23 Nov, 2016 Dental examination Z01.20 [facility] [address] [facility] [id number] [address] [place] [address] [id number] 14 Nov, 2016 Dental caries K02.9 [facility] [address] [facility] [id number] [address] [place] [id number] 13 Nov, 2016 High risk medication use Z79 .899 [facility] [address] [id number] [address] [place] [id number] Nov, Paranoid schizophrenia F20.0 ; Posttraumatic stress disorder F43.10 ; Attention deficit hyperactivity disorder (ADHD), inattentive type, 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 and Borderline personality disorder in adult F60.3 [facility] [address] [id number] [address] [place] [address] [id number] Oct, Dental caries K02.9 [facility] [id number] [place] [phone] Sep, Paranoid schizophrenia F20.0 ; Posttraumatic stress disorder F43.10 and Attention deficit hyperactivity disorder (ADHD), inattentive type, 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 [facility] [address] [id number] [address] [place] [id number] Aug, Paranoid schizophrenia F20.0 ; Posttraumatic stress disorder F43.10 and Attention deficit hyperactivity disorder (ADHD), inattentive type, 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 [facility] [address] [id number] [address] [place] [id number] Aug, Strep throat J02.0 and Cough R05 [facility] [address] [facility] [id number] [address] [place] [id number] Aug, [facility] [address] [id number] [address] [place] [id number] 24 Jul, 2016 Paranoid schizophrenia F20.0 ; Posttraumatic stress disorder F43.10 and Attention deficit hyperactivity disorder (ADHD), inattentive type, 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 [facility] [address] [place] [address] Jul, [facility] [address] [id number] [address] [place] [id number] Jun, Paranoid schizophrenia F20.0 ; Posttraumatic stress disorder F43.10 and Attention deficit hyperactivity disorder (ADHD), inattentive type, 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 [facility] [address] [id number] [address] [place] [address] [id number] Jun, Dental examination Z01.20 [facility] [address] [id number] [address] [place] [phone] Jun, [facility] [address] [id number] [address] [place] [id number] May, Paranoid schizophrenia F20.0 [facility] [address] [id number] [address] [place] [id number] May, Paranoid schizophrenia F20.0 ; Posttraumatic stress disorder F43.10 and Attention deficit hyperactivity disorder (ADHD), inattentive type, 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 [facility] [address] [id number] [address] [place] [phone] May, [facility] [address] [id number] [address] [place] [id number] May, Paranoid schizophrenia F20.0 [facility] [address] [id number] [address] [place] [phone] May, [facility] [address] [id number] [address] [place] [id number] May, Paranoid schizophrenia F20.0 [facility] [facility] [address] [id number] [address] [place] [address] May, Schizoaffective disorder, un specified F25.9 [facility] [address] [id number] [address] [place] [address] May, Schizoaffective disorder, un specified F25.9 [facility] [address] [id number] [place] [address] May, [facility] [address] [id number] [address] [place] [address] May, Paranoid schizophrenia F20.0 [facility] [address] [id number] [address] [place] [address] May, Paranoid schizophrenia F20.0 ; Posttraumatic stress disorder F43.10 and Attention deficit hyperactivity disorder (ADHD), inattentive type, 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 [facility] [address] [id number] [address] [place] [address], [place] [address] Mar, [facility] [address] [id number] [address] [place] [address] Mar, Paranoid schizophrenia F20.0 ; Posttraumatic stress disorder F43.10 and Attention deficit hyperactivity disorder (ADHD), inattentive type, 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 [facility] [address] [id number] [address] [place] [address] Mar, Paranoid schizophrenia F20.0 [facility] [address] [id number] [address] [place] [address] Mar, Paranoid schizophrenia F20.0 ; Attention deficit hyperactivity disorder (ADHD), inattentive type, 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 and Posttraumatic stress disorder F43.10 [facility] [address] [id number] [address] [place] [address] Mar, [facility] [address] [id number] [address] [place] [address] Mar, Paranoid schizophrenia F20.0 ; Posttraumatic stress disorder F43.10 and Attention deficit hyperactivity disorder (ADHD), inattentive type, 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 [facility] [address] [id number] [address] [place] [address] February, [facility] [address] [id number] [address] [place] [address] February, [facility] [address] [id number] [address] [place] [address] February, [facility] [address] [id number] [address] [place] [address] February, [facility] [address] [id number] [address] [place] [address] Jan, Paranoid schizophrenia F20.0 [facility] [address] [id number] [address] [place] [id number] Jan, Dental examination Z01.20 [facility] [address] [id number] [address] [place] [address] [id number] Jan, Dental caries K02.9 [facility] [address] [id number] [place] [id number] Jan, Dental examination Z01.20 [facility] [address] [id number] [place] [id number] Dec, Encounter for dental examina tion Z01.20 [facility] [address] [id number] [address] [place] [address] Dec, Paranoid schizophrenia F20.0 [facility] [address] [id number] [place] [address] [id number] Dec, Dental examination Z01.20 [facility] [address] [id number] [address] [place] [address] Dec, [facility] [address] [facility] [id number] [address] [place] [address] Dec, Paranoid schizophrenia F20.0 ; Posttraumatic stress disorder F43.10 and Attention deficit hyperactivity disorder (ADHD), inattentive type, 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 [facility] [address] [facility] [id number] [address] [place] [address] Nov, Schizoaffective disorder, un specified F25.9 [facility] [address] [facility] [id number] [address] [place] [address] Oct, Paranoid schizophrenia F20.0 [facility] [address] [id number] [address] [place] [address] Oct, [facility] [address] [facility] [id number] [address] [place] [address] Sep, Paranoid schizophrenia F20.0 ; Posttraumatic stress disorder F43.10 and Attention deficit hyperactivity disorder (ADHD), inattentive type, 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 [facility] [address] [id number] [address] [place] [address] Sep, [facility] [address] [id number] [address] [place] [id number] Sep, Paranoid schizophrenia F20.0 ; Posttraumatic stress disorder F43.10 and Attention deficit hyperactivity disorder (ADHD), inattentive type, 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 [facility] [address] [facility] [id number] [address] [place] [id number] Aug, Paranoid schizophrenia F20.0 [facility] [address] [facility] [id number] [address] [place] [address] Aug, [facility] [address] [facility] [id number] [address] [place] [address] Aug, Posttraumatic stress disorde r F43.10 ; Paranoid schizophrenia F20.0 and Attention deficit hyperactivity disorder (ADHD), inattentive type, 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 [facility] [address] [id number] [address] [place] [address] Jul, Bipolar disorder, unspecifie d F31.9 [facility] [address] [id number] [address] [place] [address] Jul, [facility] [address] [facility] [id number] [address] [place] [address] Jun, [facility] [address] [facility] [id number] [address] [place] [address] Jun, Schizoaffective disorder, ch ronic 295.72 ; Posttraumatic stress disorder 309.81 and Attention deficit disorder of childhood without mention of hyperactivity 314.00 [facility] [address] [id number] [address] [place] [address] May, [facility] [address] [id number] [address] [place] [address] May, [facility] [address] [id number] [address] [place] [address] May, Schizoaffective disorder, ch ronic 295.72 ; Posttraumatic stress disorder 309.81 ; Attention deficit disorder of childhood without mention of hyperactivity 314.00 and Bipolar disorder, unspecified 296.80 [facility] [address] [id number] [address] [place] [address] Apr, Schizoaffective disorder, ch ronic 295.72 [facility] [address] [id number] [address] [place] [address] Apr, [facility] [address] [id number] [address] [place] [address] Apr, Schizoaffective disorder, ch ronic 295.72 ; Posttraumatic stress disorder 309.81 and Attention deficit disorder of childhood without mention of hyperactivity 314.00 [facility] [address] [id number] [address] [place] [address] Mar, Disorganized schizophrenia, 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 [facility] [address] [id number] [address] [place] [address] Mar, [facility] [address] [id number] [address] [place] [address] Mar, [facility] [address] [id number] [address] [place] [address] Mar, [facility] [address] [id number] [address] [place] [address] Mar, [facility] [address] [id number] [address] [place] [id number] February, Schizoaffective disorder, ch ronic 295.72 [facility] [address] [id number] [address] [place] [address] February, [facility] [address] [id number] [address] [place] [address] February, Attention 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 ; Posttraumatic stress disorder 309.81 and Schizoaffective disorder, chronic 295.72 [facility] [address] [id number] [address] [place] [id number] Jan, [facility] [address] [id number] [address] [place] [address] Jan, [facility] [address] [id number] [address] [place] [address] Jan, [facility] [address] [id number] [address] [place] [address] Dec, [facility] [address] [id number] [address] [place] [id number] Dec, [facility] [address] [id number] [address] [place] [address] Dec, [facility] [address] [id number] [address] [place] [address] Dec, [facility] [address] [id number] [address] [place] [address] Dec, [facility] [address] [id number] [address] [place] [address] Dec, [facility] [address] [id number] [address] [place] [address] Dec, [facility] [address] [id number] [address] [place] [address] Dec, [facility] [address] [id number] [address] [place] [id number] Nov, [facility] [address] [id number] [address] [place] [address] Nov, [facility] [address] [id number] [address] [place] [address], [place] [address] Nov, [facility] [address] [id number] [address] [place] [address], [place] [address] Nov, [facility] [address] [id number] [address] [place] [address], [place] [address] Nov, [facility] [place] [address] [id number] [address] [place] [address], [place] [address] Nov, [facility] [address] [id number] [address] [place] [address], [place] [address] Nov, [facility] [address] [id number] [address] [place] [address], [place] [address] Nov, [facility] [address] [id number] [address] [place] [address], [place] [address] Nov, [facility] [place] [facility] [address] [id number] [address] [place] [address], [place] [address] Nov, [facility] [address] [id number] [address] [place] [address], [place] [address] Oct, [facility] [address] [id number] [address] [place] [address], [place] [address] Oct, [facility] [address] [id number] [address] [place] [address], [place] [address] Oct, [facility] [place] [facility] [address] [id number] [address] [place] [address], [place] [address] Oct, [facility] [place] [facility] [address] [id number] [address] [place] [address], [place] [address] Oct, [facility] [place] [facility] [address] [id number] [address] [place] [address], [place] [address] Oct, [facility] [place] [facility] [address] [id number] [address] [place] [address], [place] [address] Oct, [facility] [place] [facility] [address] [id number] [address] [place] [address], [place] [address] 17 Sep, 2014 [facility] [address] [id number] [address] [place] [address], [place] [address] 17 Sep, 2014 [facility] [address] [id number] [address] [place] [address], [place] [address] 15 Sep, 2014 [facility] [address] [id number] [address] [place] [address], [place] [address] 15 Sep, 2014 [facility] [address] [id number] [address] [place] [address], [place] [address] Aug, [facility] [address] [id number] [address] [place] [address], [place] [address] Aug, [facility] [address] [id number] [address] [place] [address], [place] [address] Aug, [facility] [address] [id number] [address] [place] [address], [place] [address] Aug, [facility] [address] [id number] [address] [place] [address], [place] [address] Aug, [facility] [address] [id number] [address] [place] [address], [place] [address] Aug, [facility] [address] [id number] [address] [place] [address], [place] [address] Jul, [facility] [address] [id number] [address] [place] [address], [place] [address] 29 Jul, 2014 [facility] [address] [id number] [address] [place] [address], [place] [address] 24 Jul, 2014 [facility] [address] [id number] [address] [place] [address], [place] [address] 24 Jul, 2014 [facility] [address] [id number] [address] [place] [address], [place] [address] 15 Jul, 2014 [facility] [address] [id number] [address] [place] [address], [place] [address] 15 Jul, 2014 [facility] [place] [facility] [address] [id number] [facility] [place] [address] 27 Jun, 2013 [facility] [place] [facility] [address] [id number] [facility] [place] [address] 27 Jun, 2013 [facility] [place] [facility] [address] [id number] [address] [place] [address], [place] [address] 26 Jun, 2013 [facility] [place] [facility] [address] [id number] [address] [place] [address], [place] [address] 26 Jun, 2013 [facility] [place] [facility] [address] [id number] [address] [place] [address], [place] [address] 26 Jun, 2013 [facility] [place] [facility] [address] [id number] [address] [place] [address], [place] [address] 26 Jun, 2013 [facility] [place] [facility] [address] [id number] [address] [place] [address], [place] [address] 16 Jun, 2013 [facility] [place] [facility] [address] [id number] [address] [place] [address], [place] [address] 16 Jun, 2013 [facility] [place] [facility] [address] [id number] [address] [place] [address], [place] [address] 16 Jun, 2013 [facility] [place] [facility] [address] [id number] [address] [place] [address], [place] [address] 16 Jun, 2013 [facility] [place] [facility] [address] [id number] [address] [place] [address], [place] [address] Jun, [facility] [place] [facility] [address] [id number] [address] [place] [address], [place] [address] May, [facility] [place] [facility] [address] [id number] [address] [place] [address], [place] [address] May, [facility] [place] [facility] [address] [id number] [address] [place] [address], [place] [address] May, [facility] [place] [facility] [address] [id number] [address] [place] [address], [place] [address] May, [facility] [place] [facility] [address] [id number] [address] [place] [address], [place] [address] May, [facility] [address] [id number] [facility] [place] [address] May, [facility] [address] [id number] [address] [place] [address], [place] [address] May, [facility] [address] [id number] [address] [place] [address], [place] [address] May, [facility] [place] [facility] [address] [id number] [address] [place] [address], [place] [address] May, [facility] [address] [id number] [address] [place] [address], [place] [address] May, [facility] [address] [id number] [address] [place] [address], [place] [address] Apr, [facility] [address] [id number] [address] [place] [address], [place] [address] Apr, [facility] [address] [id number] [address] [place] [address], [place] [address] Apr, [facility] [address] [id number] [address] [place] [address], [place] [address] Apr, [facility] [address] [id number] [address] [place] [address], [place] [address] Apr, [facility] [address] [id number] [address] [place] [address], [place] [address] Apr, [facility] [place] [facility] [address] [id number] [address] [place] [address], [place] [address] Apr, [facility] [place] [facility] [address] [id number] [address] [place] [address], [place] [address] Apr, [facility] [place] [facility] [address] [id number] [address] [place] [address], [place] [address] Apr, [facility] [address] [id number] [address] [place] [address], [place] [address] Apr, [facility] [place] [facility] [address] [id number] [facility] [place] [address] 26 Mar, 2014 [facility] [place] [facility] [address] [id number] [facility] [place] [address] Mar, [facility] [place] [facility] [address] [id number] [facility] [place] [address] 25 Mar, 2014 [facility] [place] [facility] [address] [id number] [address] [place] [address], [place] [address] 24 Mar, 2014 [facility] [place] [facility] [address] [id number] [address] [place] [address], [place] [address] 20 Mar, 2014 [facility] [place] [facility] [address] [id number] [address] [place] [address], [place] [address] 18 Mar, 2014 [facility] [place] [facility] [address] [id number] [address] [place] [address], [place] [address] 18 Mar, 2014 [facility] [place] [facility] [address] [id number] [address] [place] [address], [place] [address] 16 Mar, 2014 [facility] [place] [facility] [address] [id number] [address] [place] [address], [place] [address] 16 Mar, 2014 [facility] [place] [facility] [address] [id number] [address] [place] [address], [place] [address] 13 Mar, 2014 [facility] [place] [facility] [address] [id number] [address] [place] [address], [place] [address] 13 Mar, 2014 [facility] [place] [facility] [address] [id number] [address] [place] [address], [place] [address] 11 Mar, 2014 [facility] [place] [facility] [address] [id number] [address] [place] [address], [place] [address] 11 Mar, 2014 [facility] [place] [facility] [address] [id number] [address] [place] [address], [place] [address] 10 Mar, 2014 [facility] [place] [facility] [address] [id number] [address] [place] [address], [place] [address] 09 Mar, 2014 [facility] [place] [facility] [address] [id number] [address] [place] [address], [place] [address] Mar, [facility] [address] [id number] [facility] [place] [address] Mar, [facility] [address] [id number] [address] [place] [address], [place] [address] Mar, [facility] [address] [id number] [address] [place] [address], [place] [address] Mar, [facility] [address] [id number] [address] [place] [address], [place] [address] Mar, [facility] [address] [id number] [facility] [place] [address] February, [facility] [address] [id number] [address] [place] [address], [place] [address] February, [facility] [address] [id number] [address] [place] [address], [place] [address] February, [facility] [address] [id number] [address] [place] [address], [place] [address] February, [facility] [address] [id number] [address] [place] [address], [place] [address] February, [facility] [address] [id number] [address] [place] [address], [place] [address] February, [facility] [address] [id number] [address] [place] [address], [place] [address] February, [facility] [place] [facility] [address] [id number] [address] [place] [address], [place] [address] February, [facility] [address] [id number] [address] [place] [address], [place] [address] February, [facility] [address] [id number] [address] [place] [address], [place] [address] February, [facility] [address] [id number] [address] [place] [address], [place] [address] February, [facility] [address] [id number] [address] [place] [address] February, [facility] [address] [id number] [address] [place] [address], [place] [address] February, [facility] [address] [id number] [address] [place] [address], [place] [address] February, [facility] [address] [id number] [address] [place] [address], [place] [address] February, [facility] [address] [id number] [address] [place] [address], [place] [address] February, [facility] [address] [id number] [address] [place] [address], [place] [address] February, [facility] [address] [id number] [address] [place] [address], [place] [address] February, [facility] [address] [id number] [address] [place] [address], [place] [address] February, [facility] [address] [id number] [address] [place] [address], [place] [address] February, [facility] [address] [id number] [address] [place] [address], [place] [address] February, [facility] [address] [id number] [address] [place] [address], [place] [address] Jan, [facility] [address] [id number] [address] [place] [address], [place] [address] Jan, [facility] [address] [id number] [address] [place] [address], [place] [address] Jan, [facility] [address] [id number] [address] [place] [address], [place] [address] Jan, [facility] [address] [id number] [address] [place] [address], [place] [address] Jan, [facility] [address] [id number] [address] [place] [address], [place] [address] Jan, [facility] [address] [id number] [address] [place] [address], [place] [address] 10 Jan, 2014 [facility] [address] [id number] [address] [place] [address], [place] [address] 10 Jan, 2014 [facility] [address] [id number] [address] [place] [address], [place] [address] 21 Dec, 2013 [facility] [address] [id number] [address] [place] [address], [place] [address] 20 Dec, 2013 [facility] [address] [id number] [address] [place] [address], [place] [address] 20 Dec, 2013 [facility] [address] [id number] [address] [place] [address], [place] [address] 19 Dec, 2013 [facility] [address] [id number] [address] [place] [address], [place] [address] 19 Dec, 2013 [facility] [address] [id number] [address] [place] [address], [place] [address] 15 Dec, 2013 [facility] [address] [id number] [address] [place] [address], [place] [address] 15 Dec, 2013 [facility] [address] [id number] [address] [place] [address], [place] [address] 11 Dec, 2013 [facility] [address] [id number] [address] [place] [address], [place] [address] 10 Dec, 2013 [facility] [address] [id number] [address] [place] [address], [place] [address] 10 Dec, 2013 [facility] [address] [id number] [address] [place] [address], [place] [address] 18 Nov, 2013 [facility] [address] [id number] [address] [place] [address], [place] [address] 17 Nov, 2013 [facility] [address] [id number] [address] [place] [address], [place] [address] 17 Nov, 2013 [facility] [address] [id number] [address] [place] [address], [place] [address] Nov, [facility] [address] [id number] [address] [place] [address], [place] [address] Nov, [facility] [address] [id number] [address] [place] [address], [place] [address] Oct, [facility] [address] [id number] [address] [place] [address], [place] [address] Oct, [facility] [address] [id number] [address] [place] [address], [place] [address] Oct, [facility] [address] [id number] [address] [place] [address], [place] [address] Sep, [facility] [address] [id number] [address] [place] [address], [place] [address] Sep, [facility] [address] [id number] [address] [place] [address], [place] [address] Sep, [facility] [address] [id number] [address] [place] [address], [place] [address] Sep, [facility] [address] [id number] [address] [place] [address], [place] [address] Aug, [facility] [place] [address] [id number] [address] [place] [address], [place] [address] Aug, [facility] [address] [id number] [address] [place] [address], [place] [address] Jul, [facility] [address] [id number] [address] [place] [address] Jul, [facility] [address] [id number] [address] [place] [address], [place] [address] Jul, [facility] [address] [id number] [address] [place] [address], [place] [address] Jul, [facility] [address] [id number] [address] [place] [address] Jul, [facility] [address] [id number] [address] [place] [address], [place] [address] 25 Jun, 2012 [facility] [address] [id number] [address] [place] [address], [place] [address] 25 Jun, 2012 [facility] [address] [id number] [address] [place] [address], [place] [address] 19 Jun, 2012 [facility] [address] [id number] [address] [place] [address], [place] [address] 18 Jun, 2012 [facility] [address] [id number] [address] [place] [address], [place] [address] 16 Jun, 2013 [facility] [address] [id number] [address] [place] [address], [place] [address] 12 Jun, 2013 [facility] [address] [id number] [address] [place] [address], [place] [address] 11 Jun, 2013 [facility] [address] [id number] [address] [place] [address], [place] [address] 30 May, 2013 [facility] [address] [id number] [address] [place] [address], [place] [address] May, [facility] [address] [id number] [address] [place] [address], [place] [address] Apr, [facility] [address] [id number] [address] [place] [address], [place] [address] Apr, [facility] [address] [id number] [address] [place] [address], [place] [address] Apr, [facility] [address] [id number] [address] [place] [address], [place] [address] Mar, [facility] [address] [id number] [address] [place] [address], [place] [address] Mar, [facility] [address] [id number] [address] [place] [address], [place] [address] February, [facility] [address] [id number] [address] [place] [address], [place] [address] February, [facility] [place] [address] [id number] [address] [place] [address], [place] [address] February, [facility] [address] [id number] [address] [place] [address], [place] [address] February, [facility] [address] [id number] [address] [place] [address], [place] [address] Jan, [facility] [address] [id number] [address] [place] [address], [place] [address] Jan, [facility] [address] [id number] [address] [place] [address], [place] [address] Jan, [facility] [address] [id number] [address] [place] [address], [place] [address] Dec, [facility] [address] [id number] [address] [place] [address], [place] [address] Dec, [facility] [address] [id number] [address] [place] [address], [place] [address] Dec, [facility] [place] [address] [id number] [address] [place] [address], [place] [address] Dec, [facility] [place] [address] [id number] [address] [place] [address], [place] [address] Nov, [facility] [place] [address] [id number] [address] [place] [address], [place] [address] Nov, [facility] [address] [id number] [address] [place] [address], [place] [address] Oct, [facility] [address] [id number] [address] [place] [address], [place] [address] Oct, [facility] [address] [id number] [address] [place] [address], [place] [address] Oct, [facility] [address] [id number] [address] [place] [address], [place] [address] Oct, [facility] [address] [id number] [address] [place] [address], [place] [address] Aug, [facility] [address] [id number] [address] [place] [address], [place] [address] Aug, [facility] [address] [id number] [address] [place] [address], [place] [address] Jun, [facility] [address] [id number] [address] [place] [address], [place] [address] May, [facility] [address] [id number] [address] [place] [address], [place] [address] May, [facility] [address] [id number] [address] [place] [address], [place] [address] Apr, [facility] [address] [id number] [address] [place] [address], [place] [address] Apr, [facility] [address] [id number] [address] [place] [address], [place] [address] Apr, [facility] [place] [address] [id number] [address] [place] [address], [place] [address] Mar, [facility] [address] [id number] [address] [place] [address], [place] [address] Mar, [facility] [address] [id number] [address] [place] [address], [place] [address] Mar, [facility] [address] [id number] [address] [place] [address], [place] [address] Mar, [facility] [address] [id number] [address] [place] [address], [place] [address] Mar, [facility] [address] [id number] [address] [place] [address], [place] [address] February, [facility] [address] [id number] [address] [place] [address], [place] [address] February, [facility] [address] [id number] [address] [place] [address], [place] [address] February, [facility] [place] [address] [id number] [address] [place] [address], [place] [address] February, [facility] [address] [id number] [address] [place] [address], [place] [address] February, [facility] [address] [id number] [address] [place] [address], [place] [address] February, [facility] [address] [id number] [address] [place] [address], [place] [address] February, [facility] [address] [id number] [address] [place] [address], [place] [address] Jan, [facility] [address] [id number] [address] [place] [address], [place] [address] 18 Jan, 2012 [facility] [address] [id number] [address] [place] [address], [place] [address] 17 Jan, 2012 [facility] [address] [id number] [address] [place] [address], [place] [address] Jan, [facility] [address] [id number] [address] [place] [address], [place] [address] Jan, [facility] [address] [id number] [address] [place] [address], [place] [address] 04 Jan, 2012 [facility] [address] [id number] [address] [place] [address], [place] [address] 30 Dec, 2011 [facility] [address] [id number] [address] [place] [address], [place] [address] 24 Dec, 2011 [facility] [address] [id number] [address] [place] [address], [place] [address] 20 Dec, 2011 [facility] [address] [id number] [address] [place] [address], [place] [address] 13 Dec, 2011 [facility] [address] [id number] [address] [place] [address], [place] [address] 06 Dec, 2011 [facility] [address] [id number] [address] [place] [address], [place] [address] 28 Nov, 2011 [facility] [place] [address] [id number] [address] [place] [address], [place] [address] Nov, [facility] [address] [id number] [address] [place] [address], [place] [address] Nov, [facility] [place] [address] [id number] [address] [place] [address], [place] [address] 14 Nov, 2011 [facility] [address] [id number] [address] [place] [address], [place] [address] Nov, [facility] [address] [id number] [address] [place] [address], [place] [address] Nov, [facility] [address] [id number] [address] [place] [address], [place] [address] Oct, [facility] [address] [id number] [address] [place] [address], [place] [address] Oct, [facility] [place] [address] [id number] [address] [place] [address], [place] [address] Oct, [facility] [address] [id number] [address] [place] [address], [place] [address] Oct, [facility] [address] [id number] [address] [place] [address], [place] [address] Oct, [facility] [address] [id number] [address] [place] [address], [place] [address] Sep, [facility] [address] [id number] [address] [place] [address], [place] [address] Sep, [facility] [address] [id number] [address] [place] [address], [place] [address] Sep, [facility] [address] [id number] [address] [place] [address], [place] [address] Sep, [facility] [address] [id number] [address] [place] [address], [place] [address] Sep, [facility] [address] [id number] [address] [place] [address], [place] [address] 13 Sep, 2011 [facility] [address] [id number] [address] [place] [address], [place] [address] 12 Sep, 2011 [facility] [address] [id number] [address] [place] [address], [place] [address] Sep, [facility] [address] [id number] [address] [place] [address], [place] [address] 05 Sep, 2011 [facility] [address] [id number] [address] [place] [address], [place] [address] 30 Aug, 2011 [facility] [address] [id number] [address] [place] [address], [place] [address] 30 Aug, 2011 [facility] [address] [id number] [address] [place] [address], [place] [address] Aug, [facility] [address] [id number] [address] [place] [address], [place] [address] Aug, [facility] [address] [id number] [address] [place] [address], [place] [address] Aug, [facility] [address] [id number] [address] [place] [address], [place] [address] Aug, [facility] [address] [id number] [address] [place] [address] 16 Aug, 2011 [facility] [address] [id number] [address] [place] [address] 16 Aug, 2011 [facility] [address] [id number] [address] [place] [address], [place] [address] Aug, [facility] [address] [id number] [address] [place] [address] Aug, [facility] [address] [id number] [address] [place] [address] Aug, [facility] [address] [id number] [address] [place] [address] Aug, [facility] [address] [id number] [address] [place] [address], [place] [address] Jul, [facility] [address] [id number] [address] [place] [address] Jul, [facility] [address] [id number] [address] [place] [address], [place] [address] Jul, [facility] [address] [id number] [address] [place] [address] Jul, [facility] [address] [id number] [address] [place] [address], [place] [address] Jul, [facility] [address] [id number] [address] [place] [address] Jul, [facility] [address] [id number] [address] [place] [address] Jul, [facility] [address] [id number] [address] [place] [address], [place] [address] Jul, [facility] [address] [id number] [address] [place] [address] Jul, [facility] [address] [id number] [address] [place] [address] Jul, [facility] [address] [id number] [address] [place] [address] Nov, [facility] [address] [id number] [address] [place] [address], [place] [address] Aug, [facility] [address] [id number] [address] [place] [address], [place] [address] Aug, [facility] [address] [id number] [address] [place] [address], [place] [address] Aug, [facility] [address] [id number] [address] [place] [address], [place] [address] Aug, [facility] [address] [id number] [address] [place] [address] Jul, IMMUNIZATIONS No Known Immunizations SOCIAL HISTORY [...] Suicide attempt by hanging 2015 Hospitalization History [facility] 01/30/2018-02/10/20 08 [facility]ization History [facility] 05/04/18- [facility] History [facility]
--- OUTSIDE RECORDS SUMMARY | 2020-04-04 01:43 | XMS REPORT ---
Author Author Kaila Roca Organization [facility] Address [address] [place] [address] Care Team Providers Care Clinical Informatics Educator Name Role Phone BRYAN Roca Unavailable PROBLEMS Type Condition ICD9-CM Code [id number] Code Onset Dates Condition S tatus SNOMED Code Problem Paranoid schizophrenia F20.0 Active 13294813 Problem Schizoaffective disorder, unspecified F25.9 Active 03625100 Problem Schizoaffective disorder, depressive type F25.1 Active 64709136 Problem Primary insomnia F51.01 Active 397 2004 Problem Attention deficit hyperactivity disorder (ADHD), inattentive type, 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 [id number] [address] [place] [phone] February, [facility] [address] [facility] [id number] [address] [place] [phone] Jan, [facility] [address] 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 [id number] [address] [place] [phone] 16 Jan, 2020 [facility] [address] [facility] [id number] [address] [place] [phone] Jan, [facility] [address] [facility] [id number] [address] [place] [phone] Jan, [facility] [address] 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 [id number] [address] [place] [phone] Nov, [facility] [address] 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 [id number] [address] [place] [phone] Oct, [facility] [address] 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 [address] [facility] [id number] [address] [place] [phone] Aug, Acute bronchitis, unspecifie d organism J20.9 [facility] [address] [id number] [address] [place] [phone] Aug, [facility] [address] [facility] [id number] [address] [place] [phone] Aug, [facility] [address] 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 [id number] [address] [place] [phone] Jul, [facility] [address] 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 and Borderline personality disorder F60.3 [facility] [address] [id number] [address] [address] Apr, Paranoid schizophrenia F20.0 [facility] [address] [id number] [facility] [address] Apr, Paranoid schizophrenia F20.0 ; Posttraumatic stress disorder F43.10 ; Attention deficit hyperactivity disorder (ADHD), inattentive type, 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 and Borderline personality disorder F60.3 [facility] [address] [id number] [address] [place] [phone] Mar, Paranoid schizophrenia F20.0 [facility] [address] [id number] [address] [place] [phone] Mar, Paranoid schizophrenia F20.0 ; Posttraumatic stress disorder F43.10 ; Attention deficit hyperactivity disorder (ADHD), inattentive type, 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 and Borderline personality disorder F60.3 [facility] [address] [id number] [address] [place] [phone] February, Paranoid schizophrenia F20.0 [facility] [address] [id number] [address] [place] [address], [place] [address] Jan, Paranoid schizophrenia F20.0 ; Posttraumatic stress disorder F43.10 ; Attention deficit hyperactivity disorder (ADHD), inattentive type, 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 and Borderline personality disorder F60.3 [facility] [address] [id number] [address] [address] Dec, Paranoid schizophrenia F20.0 ; Posttraumatic stress disorder F43.10 ; Attention deficit hyperactivity disorder (ADHD), inattentive type, 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 and Borderline personality disorder F60.3 [facility] [address] [id number] [facility] [address] Dec, Paranoid schizophrenia F20.0 ; Posttraumatic stress disorder F43.10 ; Attention deficit hyperactivity disorder (ADHD), inattentive type, 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 [id number] [address] [place] [address] Aug, [facility] [address] 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 [address] [id number] [address] [place] [address] Jul, Dry skin dermatitis L85.3 [facility] [address] [id number] [address] [place] [phone] Jul, [facility] [address] [facility] [id number] [address] [place] [address] Jul, Paranoid schizophrenia F20.0 [facility] [address] 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 and Borderline personality disorder F60.3 [facility] [address] [id number] [address] [place] [id number] May, [facility] [address] [id number] [address] [address] May, Paranoid schizophrenia F20.0 [facility] [address] [id number] [address] [place] [phone] May, Paranoid schizophrenia F20.0 ; Posttraumatic stress disorder F43.10 ; Attention deficit hyperactivity disorder (ADHD), inattentive type, 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 and Borderline personality disorder F60.3 [facility] [address] [id number] [address] [place] [phone] Apr, [facility] [address] [id number] [address] [place] [address] Apr, Paranoid schizophrenia F20.0 ; Posttraumatic stress disorder F43.10 ; Attention deficit hyperactivity disorder (ADHD), inattentive type, 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 and Borderline personality disorder F60.3 [facility] [address] [id number] [address] [place] [address] Apr, [facility] [address] [id number] [address] [place] [address] Apr, Schizoaffective disorder, de pressive type F25.1 and Borderline personality disorder F60.3 [facility] [address] [id number] [address] [place] [address] Apr, Paranoid schizophrenia F20.0 ; Posttraumatic stress disorder F43.10 ; Attention deficit hyperactivity disorder (ADHD), inattentive type, 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 and Borderline personality disorder F60.3 [facility] [address] [id number] [address] [place] [phone] Apr, [facility] [address] [id number] [address] [place] [phone] Apr, Paranoid schizophrenia F20.0 ; Posttraumatic stress disorder F43.10 ; Attention deficit hyperactivity disorder (ADHD), inattentive type, 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 and Borderline personality disorder F60.3 [facility] [address] [id number] [address] [place] [phone] Apr, [facility] [address] [id number] [address] [address] Mar, Paranoid schizophrenia F20.0 [facility] [address] [id number] [address] [place] [address] Mar, [facility] [address] [id number] [address] [place] [address], [place] [address] Mar, Paranoid schizophrenia F20.0 ; Posttraumatic stress disorder F43.10 ; Attention deficit hyperactivity disorder (ADHD), inattentive type, 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 and Borderline personality disorder F60.3 [facility] [address] [id number] [address] [place] [phone] February, Paranoid schizophrenia F20.0 [facility] [address] [id number] [address] [place] [address], [place] [address] February, Paranoid schizophrenia F20.0 ; Posttraumatic stress disorder F43.10 ; Attention deficit hyperactivity disorder (ADHD), inattentive type, 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 and Borderline personality disorder F60.3 [facility] [address] [id number] [address] [place] [phone] February, Paranoid schizophrenia F20.0 ; Posttraumatic stress disorder F43.10 ; Attention deficit hyperactivity disorder (ADHD), inattentive type, 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 and Borderline personality disorder F60.3 [facility] [address] [id number] [address] [place] [address] February, [facility] [address] [id number] [address] [place] [address] February, Paranoid schizophrenia F20.0 [facility] [address] [id number] [address] [place] [phone] February, Paranoid schizophrenia F20.0 [facility] [address] [id number] [address] [place] [address], [place] [address] February, Paranoid schizophrenia F20.0 ; Posttraumatic stress disorder F43.10 ; Attention deficit hyperactivity disorder (ADHD), inattentive type, 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 and Borderline personality disorder F60.3 [facility] [address] [id number] [address] [place] [address] Jan, Paranoid schizophrenia F20.0 ; Posttraumatic stress disorder F43.10 ; Attention deficit hyperactivity disorder (ADHD), inattentive type, 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 and Borderline personality disorder F60.3 [facility] [address] [id number] [address] [place] [address] Jan, Paranoid schizophrenia F20.0 [facility] [address] [id number] [address] [place] [address] Jan, Paranoid schizophrenia F20.0 [facility] [address] [id number] [address] [place] [address] Jan, Paranoid schizophrenia F20.0 ; Posttraumatic stress disorder F43.10 ; Attention deficit hyperactivity disorder (ADHD), inattentive type, 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 [id number] [address] [place] [address] Nov, [facility] [address] [id number] [address] [place] [address] Oct, Paranoid schizophrenia F20.0 [facility] [address] 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 [id number] [address] [place] [address] Aug, [facility] [address] 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 and Borderline personality disorder F60.3 [facility] [address] [id number] [address] [place] [address] Jun, Paranoid schizophrenia F20.0 ; Posttraumatic stress disorder F43.10 ; Attention deficit hyperactivity disorder (ADHD), inattentive type, 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 and Borderline personality disorder F60.3 [facility] [address] [id number] [address] [place] [phone] May, Other [facility] (current) dr ug therapy Z79.899 [facility] [address] [id number] [address] [place] [address] May, [facility] [address] [id number] [address] [place] [address] May, [facility] [address] [id number] [address] [place] [address] May, Attention deficit hyperactiv ity disorder (ADHD), inattentive type, mild F90.0 [facility] [address] [id number] [address] [place] [address] May, [facility] [address] [id number] [address] [place] [phone] May, Attention deficit hyperactiv ity disorder (ADHD), inattentive type, mild F90.0 [facility] [address] [id number] [address] [place] [address] May, Paranoid schizophrenia F20.0 ; Posttraumatic stress disorder F43.10 ; Attention deficit hyperactivity disorder (ADHD), inattentive type, 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 [facility] [address] [id number] [address] [place] [id number] Dec, Dental examination Z01.20 [facility] [address] [id number] [address] [place] [id number] Nov, Dental examination Z01.20 [facility] [address] [id number] [address] [place] [id number] Nov, Dental examination Z01.20 [facility] [address] [id number] [address] [place] [id number] Nov, Dental caries K02.9 [facility] [address] [facility] [id number] [address] [place] [id number] 13 Nov, 2016 High risk medication use Z79 .899 [facility] [address] 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 [id number] [address] [place] [phone] Aug, Strep throat J02.0 and Cough R05 [facility] [address] [facility] [id number] [address] [place] [phone] Aug, [facility] [address] 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 [id number] [address] [place] [id number] Jul, [facility] [address] 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 [facility] [address] [id number] [address] [place] [id number] Jun, Dental examination Z01.20 [facility] [address] [id number] [address] [place] [id number] Jun, [facility] [address] [id number] [address] [place] [id number] May, Paranoid schizophrenia F20.0 [facility] [address] [id number] [address] [place] [id number] May, Paranoid schizophrenia F20.0 ; Posttraumatic stress disorder F43.10 and Attention deficit hyperactivity disorder (ADHD), inattentive type, 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 [facility] [address] [id number] [address] [place] [phone] May, [facility] [address] [id number] [address] [place] [phone] May, Paranoid schizophrenia F20.0 [facility] [address] [id number] [address] [place] [phone] May, [facility] [address] [id number] [address] [place] [phone] May, Paranoid schizophrenia F20.0 [facility] [address] [id number] [address] [place] [phone] May, Schizoaffective disorder, un specified F25.9 [facility] [address] [id number] [address] [place] [id number] May, Schizoaffective disorder, un specified F25.9 [facility] [address] [id number] [address] [place] [id number] May, [facility] [address] [id number] [address] [place] [id number] May, Paranoid schizophrenia F20.0 [facility] [address] [id number] [address] [place] [id number] May, Paranoid schizophrenia F20.0 ; Posttraumatic stress disorder F43.10 and Attention deficit hyperactivity disorder (ADHD), inattentive type, 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 [facility] [address] [id number] [address] [place] [id number] Mar, [facility] [address] [id number] [address] [place] [id number] Mar, Paranoid schizophrenia F20.0 ; Posttraumatic stress disorder F43.10 and Attention deficit hyperactivity disorder (ADHD), inattentive type, 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 [facility] [address] [id number] [address] [place] [id number] Mar, Paranoid schizophrenia F20.0 [facility] [address] [id number] [address] [place] [phone] Mar, Paranoid schizophrenia F20.0 ; Attention deficit hyperactivity disorder (ADHD), inattentive type, 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 and Posttraumatic stress disorder F43.10 [facility] [address] [id number] [address] [place] [phone] Mar, [facility] [address] [id number] [address] [place] [phone] Mar, Paranoid schizophrenia F20.0 ; Posttraumatic stress disorder F43.10 and Attention deficit hyperactivity disorder (ADHD), inattentive type, 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 [facility] [address] [id number] [address] [place] [id number] February, [facility] [address] [id number] [address] [place] [id number] February, [facility] [address] [id number] [address] [place] [id number] February, [facility] [address] [id number] [address] [place] [id number] February, [facility] [address] [id number] [address] [place] [id number] Jan, Paranoid schizophrenia F20.0 [facility] [address] [id number] [address] [place] [id number] Jan, Dental examination Z01.20 [facility] [address] [id number] [address] [place] [id number] Jan, Dental caries K02.9 [facility] [address] [id number] [address] [place] [id number] Jan, Dental examination Z01.20 [facility] [address] [id number] [address] [place] [address] [id number] Dec, Encounter for dental examina tion Z01.20 [facility] [address] [id number] [address] [place] [id number] Dec, Paranoid schizophrenia F20.0 [facility] [address] [id number] [address] [place] [address] [id number] Dec, Dental examination Z01.20 [facility] [address] [id number] [address] [place] [id number] Dec, [facility] [address] [id number] [address] [place] [phone] Dec, Paranoid schizophrenia F20.0 ; Posttraumatic stress disorder F43.10 and Attention deficit hyperactivity disorder (ADHD), inattentive type, 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 [facility] [address] [id number] [address] [place] [phone] Nov, Schizoaffective disorder, un specified F25.9 [facility] [address] [id number] [address] [place] [id number] Oct, Paranoid schizophrenia F20.0 [facility] [address] [id number] [address] [place] [phone] Oct, [facility] [address] [id number] [address] [place] [phone] Sep, Paranoid schizophrenia F20.0 ; Posttraumatic stress disorder F43.10 and Attention deficit hyperactivity disorder (ADHD), inattentive type, 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 [id number] [address] [place] [phone] Jul, Bipolar disorder, unspecifie d F31.9 [facility] [address] [facility] [id number] [address] [place] [id number] Jul, [facility] [address] [facility] [id number] [address] [place] [id number] Jun, [facility] [address] [facility] [id number] [address] [place] [phone] Jun, Schizoaffective disorder, ch ronic 295.72 ; Posttraumatic stress disorder 309.81 and Attention deficit disorder of childhood without mention of hyperactivity 314.00 [facility] [address] [id number] [address] [place] [phone] May, [facility] [address] [facility] [id number] [address] [place] [id number] May, [facility] [address] [facility] [id number] [address] [place] [phone] May, Schizoaffective disorder, ch ronic 295.72 ; Posttraumatic stress disorder 309.81 ; Attention deficit disorder of childhood without mention of hyperactivity 314.00 and Bipolar disorder, unspecified 296.80 [facility] [address] [id number] [address] [place] [id number] Apr, Schizoaffective disorder, ch ronic 295.72 [facility] [address] [id number] [address] [place] [phone] Apr, [facility] [address] [id number] [address] [place] [phone] Apr, Schizoaffective disorder, ch ronic 295.72 ; Posttraumatic stress disorder 309.81 and Attention deficit disorder of childhood without mention of hyperactivity 314.00 [facility] [address] [id number] [address] [place] [phone] Mar, Disorganized schizophrenia, 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 [id number] [address] [place] [id number] Mar, [facility] [address] [facility] [id number] [address] [place] [phone] Mar, [facility] [address] [facility] [id number] [address] [place] [phone] February, Schizoaffective disorder, ch ronic 295.72 [facility] [address] [id number] [address] [place] [phone] February, [facility] [address] [facility] [id number] [address] [place] [phone] February, Attention 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 ; Posttraumatic stress disorder 309.81 and Schizoaffective disorder, chronic 295.72 [facility] [address] [id number] [address] [place] [phone] Jan, [facility] [address] [id number] [facility] [address] Jan, [facility] [address] [id number] [address] [place] [address], [place] [address] Jan, [facility] [address] [id number] [address] [place] [address], [place] [address] Dec, [facility] [address] [id number] [address] [place] [address], [place] [address] Dec, [facility] [address] [id number] [address] [place] [address], [place] [address] Dec, [facility] [address] [id number] [address] [place] [address], [place] [address] Dec, [facility] [address] [id number] [address] [place] [address], [place] [address] Dec, [facility] [address] [id number] [address] [place] [address], [place] [address] Dec, [facility] [address] [id number] [address] [place] [address], [place] [address] Dec, [facility] [address] [id number] [address] [place] [address], [place] [address] Dec, [facility] [address] [id number] [address] [place] [address], [place] [address] Nov, [facility] [address] [id number] [address] [place] [address], [place] [address] Nov, [facility] [address] [id number] [address] [place] [address], [place] [address] Nov, [facility] [address] [id number] [address] [place] [address], [place] [address] Nov, [facility] [address] [id number] [address] [place] [address], [place] [address] Nov, [facility] [address] [id number] [address] [place] [address], [place] [address] 13 Nov, 2014 [facility] [address] [id number] [address] [place] [address], [place] [address] Nov, [facility] [address] [id number] [address] [place] [address], [place] [address] Nov, 2014 [facility] [address] [id number] [address] [place] [address], [place] [address] Nov, [facility] [address] [id number] [address] [place] [address], [place] [address] Nov, [facility] [address] [id number] [address] [place] [address], [place] [address] Oct, [facility] [address] [id number] [address] [place] [address], [place] [address] Oct, [facility] [address] [id number] [address] [place] [address], [place] [address] Oct, [facility] [address] [id number] [address] [place] [address], [place] [address] Oct, [facility] [address] [id number] [address] [place] [address], [place] [address] Oct, [facility] [address] [id number] [address] [place] [address], [place] [address] Oct, [facility] [address] [id number] [address] [place] [address], [place] [address] Oct, [facility] [address] [id number] [address] [place] [address], [place] [address] Sep, [facility] [address] [id number] [address] [place] [address], [place] [address] Sep, [facility] [address] [id number] [address] [place] [address], [place] [address] Sep, [facility] [address] [id number] [address] [place] [address], [place] [address] Sep, [facility] [address] [id number] [address] [place] [address], [place] [address] Aug, [facility] [address] [id number] [address] [place] [address], [place] [address] Aug, [facility] [address] [id number] [address] [place] [address], [place] [address] Aug, [facility] [address] [id number] [address] [place] [address], [place] [address] Aug, [facility] [address] [id number] [address] [place] [address], [place] [address] Aug, [facility] [address] [id number] [address] [place] [address], [place] [address] Aug, [facility] [address] [id number] [address] [place] [address], [place] [address] Jul, [facility] [address] [id number] [address] [place] [address], [place] [address] Jul, [facility] [address] [id number] [address] [place] [address], [place] [address] Jul, [facility] [address] [id number] [address] [place] [address], [place] [address] 24 Jul, 2014 [facility] [address] [id number] [address] [place] [address], [place] [address] 15 Jul, 2014 [facility] [address] [id number] [address] [place] [id number] 15 Jul, 2014 [facility] [address] [id number] [address] [place] [address], [place] [address] 27 Jun, 2014 [facility] [address] [id number] [address] [place] [address], [place] [address] 27 Jun, 2014 [facility] [address] [id number] [address] [place] [address], [place] [address] 26 Jun, 2014 [facility] [address] [id number] [facility] [address] 26 Jun, 2013 [facility] [address] [id number] [facility] [address] 26 Jun, 2013 [facility] [address] [id number] [facility] [address] 26 Jun, 2013 [facility] [address] [id number] [address] [place] [address], [place] [address] 16 Jun, 2013 [facility] [address] [id number] [address] [place] [address], [place] [address] 16 Jun, 2013 [facility] [address] [id number] [address] [place] [address], [place] [address] 16 Jun, 2013 [facility] [address] [id number] [address] [place] [address], [place] [address] 16 Jun, 2013 [facility] [address] [id number] [address] [place] [address], [place] [address] Jun, 2013 [facility] [address] [id number] [address] [place] [address], [place] [address] May, [facility] [address] [id number] [address] [place] [address], [place] [address] May, [facility] [address] [id number] [address] [place] [address], [place] [address] May, [facility] [address] [id number] [address] [place] [address], [place] [address] May, [facility] [address] [id number] [address] [place] [address], [place] [address] May, [facility] [address] [id number] [address] [place] [address], [place] [address] May, [facility] [address] [id number] [address] [place] [address], [place] [address] May, [facility] [address] [id number] [address] [place] [address], [place] [address] May, [facility] [address] [id number] [address] [place] [address], [place] [address] May, [facility] [address] [id number] [address] [place] [address], [place] [address] May, [facility] [address] [id number] [address] [place] [address], [place] [address] Apr, [facility] [address] [id number] [address] [place] [address], [place] [address] Apr, [facility] [address] [id number] [address] [place] [address], [place] [address] Apr, [facility] [address] [id number] [address] [place] [address], [place] [address] Apr, [facility] [address] [id number] [address] [place] [address], [place] [address] Apr, [facility] [address] [id number] [address] [place] [address], [place] [address] Apr, [facility] [address] [id number] [address] [place] [address], [place] [address] Apr, [facility] [address] [id number] [address] [place] [address], [place] [address] Apr, [facility] [address] [id number] [address] [place] [address], [place] [address] Apr, [facility] [address] [id number] [address] [place] [address], [place] [address] Apr, [facility] [address] [id number] [address] [place] [address], [place] [address] Mar, [facility] [address] [id number] [address] [place] [address], [place] [address] Mar, [facility] [address] [id number] [address] [place] [address], [place] [address] Mar, [facility] [address] [id number] [address] [place] [address], [place] [address] 24 Mar, 2014 [facility] [address] [id number] [facility] [address] 20 Mar, 2014 [facility] [address] [id number] [address] [place] [address], [place] [address] 18 Mar, 2014 [facility] [address] [id number] [address] [place] [address], [place] [address] 18 Mar, 2014 [facility] [address] [id number] [address] [place] [address], [place] [address] 16 Mar, 2014 [facility] [address] [id number] [address] [place] [address], [place] [address] 16 Mar, 2014 [facility] [address] [id number] [address] [place] [address], [place] [address] 13 Mar, 2014 [facility] [address] [id number] [address] [place] [address], [place] [address] 13 Mar, 2014 [facility] [address] [id number] [address] [place] [address], [place] [address] 11 Mar, 2014 [facility] [address] [id number] [address] [place] [address], [place] [address] Mar, [facility] [address] [id number] [address] [place] [address], [place] [address] 10 Mar, 2014 [facility] [address] [id number] [address] [place] [address], [place] [address] 09 Mar, 2014 [facility] [address] [id number] [address] [place] [address], [place] [address] 09 Mar, 2014 [facility] [address] [id number] [address] [place] [address], [place] [address] 09 Mar, 2014 [facility] [address] [id number] [address] [place] [address], [place] [address] 09 Mar, 2014 [facility] [address] [id number] [address] [place] [address], [place] [address] 04 Mar, 2014 [facility] [address] [id number] [facility] [address] Mar, [facility] [address] [id number] [facility] [address] February, [facility] [address] [id number] [facility] [address] February, [facility] [address] [id number] [facility] [place] [address] February, [facility] [address] [id number] [facility] [address] February, [facility] [address] [id number] [address] [place] [address], [place] [address] February, [facility] [address] [id number] [address] [place] [address], [place] [address] February, [facility] [address] [id number] [address] [place] [address], [place] [address] February, [facility] [address] [id number] [address] [place] [address], [place] [address] February, [facility] [address] [id number] [address] [place] [address], [place] [address] February, [facility] [address] [id number] [address] [place] [address], [place] [address] February, [facility] [address] [id number] [address] [place] [address], [place] [address] February, [facility] [address] [id number] [address] [place] [address], [place] [address] February, [facility] [address] [id number] [address] [place] [address], [place] [address] February, [facility] [address] [id number] [address] [place] [address], [place] [address] February, [facility] [address] [id number] [address] [place] [address], [place] [address] February, [facility] [address] [id number] [address] [place] [address], [place] [address] February, [facility] [address] [id number] [address] [place] [address], [place] [address] February, [facility] [address] [id number] [address] [place] [address], [place] [address] February, [facility] [address] [id number] [address] [place] [address], [place] [address] February, [facility] [address] [id number] [address] [place] [address], [place] [address] February, [facility] [address] [id number] [address] [place] [address], [place] [address] February, [facility] [address] [id number] [address] [place] [address], [place] [address] Jan, [facility] [facility] [address] [id number] [address] [place] [address], [place] [address] Jan, [facility] [address] [id number] [address] [place] [address], [place] [address] Jan, [facility] [address] [id number] [address] [place] [address], [place] [address] Jan, [facility] [address] [id number] [address] [place] [address], [place] [address] Jan, [facility] [address] [id number] [address] [place] [address], [place] [address] Jan, [facility] [address] [id number] [address] [place] [address], [place] [address] Jan, [facility] [address] [id number] [address] [place] [address], [place] [address] Jan, [facility] [address] [id number] [address] [place] [address], [place] [address] Dec, [facility] [address] [id number] [facility] [address] 20 Dec, 2013 [facility] [address] [id number] [address] [place] [address], [place] [address] 20 Dec, 2013 [facility] [address] [id number] [address] [place] [address], [place] [address] 19 Dec, 2013 [facility] [address] [id number] [address] [place] [address], [place] [address] 19 Dec, 2013 [facility] [address] [id number] [address] [place] [address], [place] [address] 15 Dec, 2013 [facility] [address] [id number] [address] [place] [address], [place] [address] 15 Dec, 2013 [facility] [address] [id number] [address] [place] [address], [place] [address] 11 Dec, 2013 [facility] [address] [id number] [address] [place] [address], [place] [address] 10 Dec, 2013 [facility] [address] [id number] [address] [place] [address], [place] [address] 10 Dec, 2013 [facility] [address] [id number] [address] [place] [address], [place] [address] 18 Nov, 2013 [facility] [address] [id number] [address] [place] [address], [place] [address] 17 Nov, 2013 [facility] [address] [id number] [address] [place] [address], [place] [address] 17 Nov, 2013 [facility] [address] [id number] [address] [place] [address], [place] [address] 05 Nov, 2013 [facility] [address] [id number] [address] [place] [address], [place] [address] 05 Nov, 2013 [facility] [address] [id number] [address] [place] [address], [place] [address] Oct, [facility] [address] [id number] [address] [place] [address], [place] [address] Oct, [facility] [address] [id number] [address] [place] [address], [place] [address] Oct, [facility] [address] [id number] [address] [place] [address], [place] [address] Sep, [facility] [address] [id number] [address] [place] [address], [place] [address] Sep, [facility] [address] [id number] [address] [place] [address], [place] [address] Sep, [facility] [address] [id number] [address] [place] [address], [place] [address] Sep, [facility] [address] [id number] [address] [place] [address], [place] [address] Aug, [facility] [address] [id number] [address] [place] [address], [place] [address] Aug, [facility] [address] [id number] [address] [place] [address], [place] [address] Jul, [facility] [address] [id number] [address] [place] [address], [place] [address] Jul, [facility] [address] [id number] [address] [place] [id number] Jul, [facility] [address] [id number] [address] [place] [id number] Jul, [facility] [address] [id number] [address] [place] [id number] Jul, [facility] [address] [id number] [address] [place] [address], [place] [address] Jun, [facility] [address] [id number] [address] [place] [id number] Jun, [facility] [address] [id number] [address] [place] [id number] 19 Jun, 2013 [facility] [address] [id number] [address] [place] [id number] 18 Jun, 2013 [facility] [address] [id number] [address] [place] [address], [place] [address] 16 Jun, 2013 [facility] [address] [id number] [address] [place] [address], [place] [address] 12 Jun, 2013 [facility] [address] [id number] [address] [place] [address], [place] [address] 11 Jun, 2013 [facility] [address] [id number] [address] [place] [address], [place] [address] 30 May, 2013 [facility] [address] [id number] [address] [place] [address], [place] [address] May, [facility] [address] [id number] [address] [place] [address], [place] [address] Apr, [facility] [address] [id number] [address] [place] [address], [place] [address] Apr, [facility] [address] [id number] [address] [place] [address], [place] [address] Apr, [facility] [address] [id number] [address] [place] [address], [place] [address] Mar, [facility] [address] [id number] [address] [place] [address], [place] [address] Mar, [facility] [address] [id number] [address] [place] [address], [place] [address] February, [facility] [address] [id number] [address] [place] [address], [place] [address] February, [facility] [address] [id number] [address] [place] [address], [place] [address] February, [facility] [address] [id number] [address] [place] [address], [place] [address] February, [facility] [address] [id number] [address] [place] [address], [place] [address] Jan, [facility] [address] [id number] [address] [place] [address], [place] [address] 17 Jan, 2013 [facility] [address] [id number] [address] [place] [address], [place] [address] 16 Jan, 2013 [facility] [address] [id number] [address] [place] [address], [place] [address] 29 Dec, 2012 [facility] [address] [id number] [address] [place] [address], [place] [address] Dec, [facility] [address] [id number] [address] [place] [address], [place] [address] Dec, [facility] [address] [id number] [address] [place] [address], [place] [address] 08 Dec, 2012 [facility] [address] [id number] [address] [place] [address], [place] [address] Nov, [facility] [address] [id number] [address] [place] [address], [place] [address] Nov, [facility] [address] [id number] [address] [place] [address], [place] [address] Oct, [facility] [address] [id number] [address] [place] [address], [place] [address] Oct, [facility] [address] [id number] [address] [place] [address], [place] [address] Oct, [facility] [address] [id number] [address] [place] [address], [place] [address] Oct, [facility] [address] [id number] [address] [place] [address], [place] [address] Aug, [facility] [address] [id number] [address] [place] [address], [place] [address] Aug, [facility] [address] [id number] [address] [place] [address], [place] [address] Jun, [facility] [address] [id number] [address] [place] [address], [place] [address] May, [facility] [address] [id number] [address] [place] [address], [place] [address] May, [facility] [address] [id number] [address] [place] [address], [place] [address] Apr, [facility] [address] [id number] [address] [place] [address], [place] [address] Apr, [facility] [address] [id number] [address] [place] [address], [place] [address] Apr, [facility] [address] [id number] [address] [place] [address], [place] [address] Mar, [facility] [address] [id number] [address] [place] [address], [place] [address] Mar, [facility] [address] [id number] [address] [place] [address], [place] [address] Mar, [facility] [address] [id number] [address] [place] [address], [place] [address] Mar, [facility] [address] [id number] [address] [place] [address], [place] [address] Mar, [facility] [address] [id number] [address] [place] [address], [place] [address] February, [facility] [address] [id number] [address] [place] [address], [place] [address] February, [facility] [address] [id number] [address] [place] [address], [place] [address] February, [facility] [address] [id number] [address] [place] [address], [place] [address] February, [facility] [address] [id number] [address] [place] [address], [place] [address] February, [facility] [address] [id number] [address] [place] [address], [place] [address] February, [facility] [address] [id number] [address] [place] [address], [place] [address] February, [facility] [address] [id number] [address] [place] [address], [place] [address] 25 Jan, 2012 [facility] [address] [id number] [address] [place] [address], [place] [address] 18 Jan, 2012 [facility] [address] [id number] [address] [place] [address], [place] [address] 17 Jan, 2012 [facility] [address] [id number] [address] [place] [address], [place] [address] 13 Jan, 2012 [facility] [address] [id number] [address] [place] [address], [place] [address] 10 Jan, 2012 [facility] [address] [id number] [address] [place] [address], [place] [address] 04 Jan, 2012 [facility] [address] [id number] [address] [place] [address], [place] [address] 30 Dec, 2011 [facility] [address] [id number] [address] [place] [address], [place] [address] 24 Dec, 2011 [facility] [address] [id number] [address] [place] [address], [place] [address] 20 Dec, 2011 [facility] [address] [id number] [address] [place] [address], [place] [address] 13 Dec, 2011 [facility] [address] [id number] [address] [place] [address], [place] [address] 06 Dec, 2011 [facility] [address] [id number] [address] [place] [address], [place] [address] 28 Nov, 2011 [facility] [address] [id number] [address] [place] [address], [place] [address] 27 Nov, 2011 [facility] [address] [id number] [address] [place] [address], [place] [address] 25 Nov, 2011 [facility] [address] [id number] [address] [place] [address], [place] [address] 14 Nov, 2011 [facility] [address] [id number] [facility] [address] Nov, [facility] [address] [id number] [address] [place] [address], [place] [address] Nov, [facility] [address] [id number] [address] [place] [address], [place] [address] Oct, [facility] [address] [id number] [address] [place] [address], [place] [address] Oct, [facility] [address] [id number] [address] [place] [address], [place] [address] Oct, [facility] [address] [id number] [address] [place] [address], [place] [address] Oct, [facility] [address] [id number] [address] [place] [address], [place] [address] Oct, [facility] [address] [id number] [address] [place] [address], [place] [address] Sep, [facility] [address] [id number] [address] [place] [address], [place] [address] Sep, [facility] [address] [id number] [address] [place] [address], [place] [address] Sep, [facility] [address] [id number] [address] [place] [address], [place] [address] 14 Sep, 2011 [facility] [address] [id number] [address] [place] [address], [place] [address] 14 Sep, 2011 [facility] [address] [id number] [address] [place] [address], [place] [address] 13 Sep, 2011 [facility] [address] [id number] [address] [place] [address], [place] [address] 12 Sep, 2011 [facility] [address] [id number] [address] [place] [address], [place] [address] 09 Sep, 2011 [facility] [address] [id number] [address] [place] [address], [place] [address] Sep, [facility] [address] [id number] [address] [place] [address], [place] [address] Aug, [facility] [address] [id number] [address] [place] [address], [place] [address] Aug, [facility] [address] [id number] [address] [place] [address], [place] [address] Aug, [facility] [address] [id number] [address] [place] [address], [place] [address] Aug, [facility] [address] [id number] [address] [place] [address], [place] [address] Aug, [facility] [address] [id number] [address] [place] [address], [place] [address] Aug, [facility] [address] [id number] [address] [place] [address], [place] [address] Aug, [facility] [address] [id number] [address] [place] [address], [place] [address] Aug, [facility] [address] [id number] [address] [place] [address], [place] [address] Aug, [facility] [address] [id number] [address] [place] [address], [place] [address] Aug, [facility] [address] [id number] [address] [place] [address], [place] [address] Aug, [facility] [address] [id number] [address] [place] [id number] Aug, [facility] [address] [id number] [address] [place] [address], [place] [address] Jul, [facility] [address] [id number] [address] [place] [address], [place] [address] Jul, [facility] [address] [id number] [address] [place] [address] Jul, [facility] [address] [id number] [address] [place] [id number] Jul, [facility] [address] [id number] [address] [place] [id number] Jul, [facility] [address] [id number] [address] [place] [id number] Jul, [facility] [address] [id number] [address] [place] [id number] Jul, [facility] [address] [id number] [address] [place] [id number] Jul, [facility] [address] [id number] [address] [place] [id number] Jul, [facility] [address] [id number] [address] [place] [id number] Jul, [facility] [address] [id number] [address] [place] [id number] Nov, [facility] [address] [id number] [address] [place] [id number] Aug, [facility] [address] [id number] [address] [place] [id number] Aug, [facility] [address] [id number] [address] [place] [id number] Aug, [facility] [address] [id number] [address] [place] [id number] Aug, [facility] [address] [id number] [address] [place] [id number] Jul, IMMUNIZATIONS No Known Immunizations SOCIAL HISTORY [...] attempt by hanging 2015 Hospitalization History [facility] 01/30/2018-02/10/20 08 Hospitalization History [facility] 05/04/18- Hospitalization History [facility] - 5 days
--- OUTSIDE RECORDS SUMMARY | 2020-04-04 01:44 | XMS REPORT ---
Author Author Kaila Onofre Doctor Organization [facility] Address Unknown Phone Unavailable Care Team Providers Care Health And Safety Specialist Name Role Phone Migration, Doctor Unavailable Unavailable PROBLEMS Type Condition ICD9-CM Code [id number] Code Onset Dates Condition S tatus SNOMED Code Problem Paranoid schizophrenia F20.0 Active 56161951 Problem Borderline personality disorder F60.3 Active 75256785 Problem Schizoaffective disorder, depressive type F25.1 Active 47068922 Problem Schizoaffective disorder, unspecified F25.9 Active 52493598 Problem Attention deficit hyperactivity disorder (ADHD), inattentive type, 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 00200546 Problem Posttraumatic stress disorder F43.10 Active 60320177 Problem High risk medication use Z79.899 Activ e [id number] ALLERGIES No Information ENCOUNTERS Encounter Location Date Diagnosis [facility] [address] [place] [phone] Jan, [facility] [address] [id number] [address] [place] [phone] Dec, Paranoid schizophrenia F20.0 ; Attention deficit hyperactivity disorder (ADHD), inattentive type, 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 ; Posttraumatic stress disorder F43.10 and Borderline personality disorder F60.3 [facility] [address] [id number] [address] [place] [phone] Nov, Paranoid schizophrenia F20.0 ; Attention deficit hyperactivity disorder (ADHD), inattentive type, 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 [id number] [address] [place] [phone] Oct, [facility] [address] 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 [id number] [address] [place] [phone] Aug, [facility] [address] [facility] [id number] [address] [place] [phone] Aug, Acute bronchitis, unspecifie d organism J20.9 [facility] [address] [facility] [id number] [address] [place] [phone] Aug, [facility] [address] [facility] [id number] [address] [place] [phone] Aug, [facility] [address] 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 [id number] [address] [place] [phone] Jul, [facility] [address] 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 ; Posttraumatic stress disorder F43.10 ; Borderline personality disorder F60.3 and Other group home (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 Z79.899 [facility] [address] [id number] [address] [place] [phone] Apr, Paranoid schizophrenia F20.0 ; Posttraumatic stress disorder F43.10 ; Attention deficit hyperactivity disorder (ADHD), inattentive type, 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 and Borderline personality disorder F60.3 [facility] [address] [id number] [address] [place] [phone] Apr, Paranoid schizophrenia F20.0 [facility] [address] [id number] [address] [place] [phone] Apr, Paranoid schizophrenia F20.0 ; Posttraumatic stress disorder F43.10 ; Attention deficit hyperactivity disorder (ADHD), inattentive type, 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 and Borderline personality disorder F60.3 [facility] [address] [id number] [address] [place] [phone] Mar, Paranoid schizophrenia F20.0 [facility] [address] [id number] [address] [place] [phone] Mar, Paranoid schizophrenia F20.0 ; Posttraumatic stress disorder F43.10 ; Attention deficit hyperactivity disorder (ADHD), inattentive type, 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 and Borderline personality disorder F60.3 [facility] [address] [id number] [address] [place] [phone] February, Paranoid schizophrenia F20.0 [facility] [address] [id number] [address] [place] [phone] Jan, Paranoid schizophrenia F20.0 ; Posttraumatic stress disorder F43.10 ; Attention deficit hyperactivity disorder (ADHD), inattentive type, 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 and Borderline personality disorder F60.3 [facility] [address] [place] [phone] Dec, Paranoid schizophrenia F20.0 ; Posttraumatic stress disorder F43.10 ; Attention deficit hyperactivity disorder (ADHD), inattentive type, 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 and Borderline personality disorder F60.3 [facility] [address] [phone] Dec, Paranoid schizophrenia F20.0 ; Posttraumatic stress disorder F43.10 ; Attention deficit hyperactivity disorder (ADHD), inattentive type, 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 and Borderline personality disorder F60.3 [facility] [address] [id number] [address] [place] [phone] Oct, Paranoid schizophrenia F20.0 ; Posttraumatic stress disorder F43.10 ; Attention deficit hyperactivity disorder (ADHD), inattentive type, 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 and Borderline personality disorder F60.3 [facility] [address] [place] [phone] Oct, Paranoid schizophrenia F20.0 ; Posttraumatic stress disorder F43.10 ; Attention deficit hyperactivity disorder (ADHD), inattentive type, 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 [address] 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 and Borderline personality disorder F60.3 [facility] [address] [id number] [address] [place] [phone] May, [facility] [address] [id number] [address] [place] [phone] May, Paranoid schizophrenia F20.0 [facility] [address] [id number] [address] [place] [phone] May, Paranoid schizophrenia F20.0 ; Posttraumatic stress disorder F43.10 ; Attention deficit hyperactivity disorder (ADHD), inattentive type, 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 and Borderline personality disorder F60.3 [facility] [address] [id number] [address] [place] [phone] Apr, [facility] [address] [id number] [address] [place] [phone] Apr, Paranoid schizophrenia F20.0 ; Posttraumatic stress disorder F43.10 ; Attention deficit hyperactivity disorder (ADHD), inattentive type, 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 and Borderline personality disorder F60.3 [facility] [address] [id number] [address] [place] [phone] Apr, [facility] [address] [id number] [address] [place] [phone] Apr, Schizoaffective disorder, de pressive type F25.1 and Borderline personality disorder F60.3 [facility] [address] [id number] [address] [place] [phone] Apr, Paranoid schizophrenia F20.0 ; Posttraumatic stress disorder F43.10 ; Attention deficit hyperactivity disorder (ADHD), inattentive type, 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 and Borderline personality disorder F60.3 [facility] [address] [id number] [address] [place] [phone] Apr, [facility] [address] [id number] [address] [place] [phone] Apr, Paranoid schizophrenia F20.0 ; Posttraumatic stress disorder F43.10 ; Attention deficit hyperactivity disorder (ADHD), inattentive type, 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 and Borderline personality disorder F60.3 [facility] [address] [id number] [address] [place] [address], [place] [address] Apr, [facility] [address] [id number] [address] [place] [phone] Mar, Paranoid schizophrenia F20.0 [facility] [address] [id number] [address] [place] [id number] Mar, [facility] [address] [id number] [address] [place] [phone] Mar, Paranoid schizophrenia F20.0 ; Posttraumatic stress disorder F43.10 ; Attention deficit hyperactivity disorder (ADHD), inattentive type, 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 and Borderline personality disorder F60.3 [facility] [address] [id number] [address] [place] [phone] February, Paranoid schizophrenia F20.0 [facility] [address] [id number] [address] [place] [phone] February, Paranoid schizophrenia F20.0 ; Posttraumatic stress disorder F43.10 ; Attention deficit hyperactivity disorder (ADHD), inattentive type, 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 [id number] [address] [place] [phone] February, [facility] [address] [facility] [id number] [address] [place] [phone] February, Paranoid schizophrenia F20.0 [facility] [address] [facility] [id number] [address] [place] [phone] February, Paranoid schizophrenia F20.0 [facility] [address] 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 [id number] [address] [place] [phone] Jan, Paranoid schizophrenia F20.0 [facility] [address] [facility] [id number] [address] [place] [phone] Jan, Paranoid schizophrenia F20.0 [facility] [address] 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 [id number] [address] [place] [phone] Dec, [facility] [address] 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 and Borderline personality disorder F60.3 [facility] [address] [id number] [address] [place] [phone] Nov, [facility] [address] [id number] [address] [place] [phone] Oct, Paranoid schizophrenia F20.0 [facility] [address] [id number] [address] [place] [phone] Oct, Paranoid schizophrenia F20.0 ; Posttraumatic stress disorder F43.10 ; Attention deficit hyperactivity disorder (ADHD), inattentive type, 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 ; Borderline personality disorder F60.3 and 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 Z79.899 [facility] [address] [id number] [address] [place] [phone] Oct, [facility] [address] [id number] [address] [place] [phone] Oct, [facility] [address] [id number] [address] [place] [phone] Sep, [facility] [address] [id number] [address] [place] [phone] Sep, Paranoid schizophrenia F20.0 ; Posttraumatic stress disorder F43.10 ; Attention deficit hyperactivity disorder (ADHD), inattentive type, 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 and Borderline personality disorder F60.3 [facility] [address] [id number] [address] [place] [phone] Sep, Paranoid schizophrenia F20.0 [facility] [address] [id number] [address] [place] [phone] Aug, Paranoid schizophrenia F20.0 ; Posttraumatic stress disorder F43.10 ; Attention deficit hyperactivity disorder (ADHD), inattentive type, 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 [id number] [address] [place] [phone] May, Other group home (current) dr gabriel parra Z79.899 [facility] [address] [facility] [id number] [address] [place] [phone] May, [facility] [address] [facility] [id number] [address] [place] [phone] May, [facility] [address] [facility] [id number] [address] [place] [phone] May, Attention deficit hyperactiv ity disorder (ADHD), inattentive type, 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 [id number] [address] [place] [phone] Apr, Paranoid schizophrenia F20.0 [facility] [address] 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 [id number] [address] [place] [phone] 13 Nov, 2016 High risk medication use Z79 .899 [facility] [address] 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 [id number] [address] [place] [phone] Aug, Strep throat J02.0 and Cough R05 [facility] [address] 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 [facility] [address] [id number] [address] [place] [phone] Jul, [facility] [address] [id number] [address] [place] [phone] Jun, Paranoid schizophrenia F20.0 ; Posttraumatic stress disorder F43.10 and Attention deficit hyperactivity disorder (ADHD), inattentive type, 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 [facility] [address] [id number] [place] [id number] Jun, Dental examination Z01.20 [facility] [address] [id number] [address] [place] [phone] Jun, [facility] [address] [id number] [address] [place] [phone] May, Paranoid schizophrenia F20.0 [facility] [address] [id number] [address] [place] [phone] May, Paranoid schizophrenia F20.0 ; Posttraumatic stress disorder F43.10 and Attention deficit hyperactivity disorder (ADHD), inattentive type, 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 [facility] [address] [id number] [address] [place] [phone] May, [facility] [address] [id number] [address] [place] [phone] May, Paranoid schizophrenia F20.0 [facility] [address] [id number] [address] [place] [phone] May, [facility] [address] [id number] [address] [place] [phone] May, Paranoid schizophrenia F20.0 [facility] [address] [id number] [address] [place] [id number] May, Schizoaffective disorder, un specified F25.9 [facility] [address] [id number] [address] [place] [id number] May, Schizoaffective disorder, un specified F25.9 [facility] [address] [id number] [address] [place] [id number] May, [facility] [address] [id number] 74 [place] [address] May, Paranoid schizophrenia F20.0 [facility] [address] [id number] [address] [place] [id number] May, Paranoid schizophrenia F20.0 ; Posttraumatic stress disorder F43.10 and Attention deficit hyperactivity disorder (ADHD), inattentive type, 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 [facility] [address] [id number] [address] [place] [address] Mar, [facility] [address] [id number] [address] [place] [address] Mar, Paranoid schizophrenia F20.0 ; Posttraumatic stress disorder F43.10 and Attention deficit hyperactivity disorder (ADHD), inattentive type, 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 [facility] [address] [id number] [address] [place] [address] Mar, Paranoid schizophrenia F20.0 [facility] [address] [id number] [address] [place] [address] Mar, Paranoid schizophrenia F20.0 ; Attention deficit hyperactivity disorder (ADHD), inattentive type, 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 and Posttraumatic stress disorder F43.10 [facility] [address] [id number] [address] [place] [id number] Mar, [facility] [address] [id number] [address] [place] [address] Mar, Paranoid schizophrenia F20.0 ; Posttraumatic stress disorder F43.10 and Attention deficit hyperactivity disorder (ADHD), inattentive type, 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 [facility] [address] [id number] [address] [place] [phone] February, [facility] [address] [id number] [address] [place] [id number] February, [facility] [address] [id number] [address] [place] [phone] February, [facility] [address] [id number] [address] [place] [phone] February, [facility] [address] [id number] [address] [place] [address] Jan, Paranoid schizophrenia F20.0 [facility] [address] [id number] [address] [place] [id number] Jan, Dental examination Z01.20 [facility] [address] [id number] [address] [place] [address] [id number] Jan, Dental caries K02.9 [facility] [address] [id number] [address] [place] [id number] Jan, Dental examination Z01.20 [facility] [address] [id number] [address] [place] [id number] Dec, Encounter for dental examina tion Z01.20 [facility] [address] [id number] [address] [place] [address] Dec, Paranoid schizophrenia F20.0 [facility] [address] [id number] [address] [place] [id number] Dec, Dental examination Z01.20 [facility] [address] [id number] [address] [place] [id number] Dec, [facility] [address] [id number] [address] [place] [address] Dec, Paranoid schizophrenia F20.0 ; Posttraumatic stress disorder F43.10 and Attention deficit hyperactivity disorder (ADHD), inattentive type, 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 [facility] [address] [id number] [address] [place] [id number] Nov, Schizoaffective disorder, un specified F25.9 [facility] [address] [id number] [address] [place] [id number] Oct, Paranoid schizophrenia F20.0 [facility] [address] [id number] [address] [place] [phone] Oct, [facility] [address] [id number] [address] [place] [address] Sep, Paranoid schizophrenia F20.0 ; Posttraumatic stress disorder F43.10 and Attention deficit hyperactivity disorder (ADHD), inattentive type, 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 [facility] [address] [id number] [address] [place] [id number] Sep, [facility] [address] [id number] [address] [place] [id number] Sep, Paranoid schizophrenia F20.0 ; Posttraumatic stress disorder F43.10 and Attention deficit hyperactivity disorder (ADHD), inattentive type, 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 [facility] [address] [id number] [address] [place] [id number] Aug, Paranoid schizophrenia F20.0 [facility] [address] [id number] [address] [place] [id number] Aug, [facility] [address] [id number] [address] [place] [phone] Aug, Posttraumatic stress disorde r F43.10 ; Paranoid schizophrenia F20.0 and Attention deficit hyperactivity disorder (ADHD), inattentive type, 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 [facility] [address] [id number] [address] [place] [id number] Jul, Bipolar disorder, unspecifie d F31.9 [facility] [address] [id number] [address] [place] [id number] Jul, [facility] [address] [id number] [address] [place] [id number] Jun, [facility] [address] [id number] [address] [place] [id number] Jun, Schizoaffective disorder, ch ronic 295.72 ; Posttraumatic stress disorder 309.81 and Attention deficit disorder of childhood without mention of hyperactivity 314.00 [facility] [address] [id number] [address] [place] [phone] May, [facility] [address] [id number] [address] [place] [id number] May, [facility] [address] [id number] [address] [place] [id number] May, Schizoaffective disorder, ch ronic 295.72 ; Posttraumatic stress disorder 309.81 ; Attention deficit disorder of childhood without mention of hyperactivity 314.00 and Bipolar disorder, unspecified 296.80 [facility] [address] [id number] [address] [place] [id number] Apr, Schizoaffective disorder, ch ronic 295.72 [facility] [address] [id number] [address] [place] [address] Apr, [facility] [address] [id number] [address] [place] [id number] Apr, Schizoaffective disorder, ch ronic 295.72 ; Posttraumatic stress disorder 309.81 and Attention deficit disorder of childhood without mention of hyperactivity 314.00 [facility] [address] [id number] [address] [place] [id number] Mar, Disorganized schizophrenia, 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 [facility] [address] [id number] [address] [place] [id number] Mar, [facility] [address] [id number] [address] [place] [phone] Mar, [facility] [address] [id number] [address] [place] [id number] Mar, [facility] [address] [id number] [address] [place] [id number] Mar, [facility] [address] [id number] [address] [place] [id number] February, Schizoaffective disorder, ch ronic 295.72 [facility] [address] [id number] [address] [place] [id number] February, [facility] [address] [id number] [address] [place] [id number] February, Attention 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 ; Posttraumatic stress disorder 309.81 and Schizoaffective disorder, chronic 295.72 [facility] [address] [id number] [address] [place] [id number] Jan, [facility] [address] [id number] [address] [place] [id number] Jan, [facility] [address] [id number] [address] [place] [id number] Jan, [facility] [address] [id number] [address] [place] [phone] Dec, [facility] [address] [id number] [address] [place] [phone] Dec, [facility] [address] [id number] [address] [place] [phone] Dec, [facility] [address] [id number] [address] [place] [phone] Dec, [facility] [address] [id number] [address] [place] [phone] Dec, [facility] [address] [id number] [address] [place] [phone] Dec, [facility] [address] [id number] [address] [place] [phone] Dec, [facility] [address] [id number] [address] [place] [id number] Dec, [facility] [address] [id number] [address] [place] [address], [place] [address] Nov, 2014 [facility] [address] [id number] [address] [place] [address], [place] [address] Nov, 2014 [facility] [address] [id number] [address] [place] [address], [place] [address] Nov, 2014 [facility] [address] [id number] [address] [place] [address], [place] [address] Nov, 2014 [facility] [address] [id number] [address] [place] [address], [place] [address] Nov, 2014 [facility] [address] [id number] [address] [place] [address], [place] [address] Nov, 2014 [facility] [address] [id number] [address] [place] [address], [place] [address] Nov, [facility] [address] [id number] [address] [place] [address], [place] [address] Nov, [facility] [address] [id number] [address] [place] [address], [place] [address] Nov, [facility] [address] [id number] [address] [place] [address], [place] [address] Nov, [facility] [address] [id number] [address] [place] [phone] Oct, [facility] [address] [id number] [address] [place] [id number] Oct, [facility] [address] [id number] [address] [place] [address], [place] [address] Oct, [facility] [address] [id number] [address] [place] [id number] Oct, [facility] [address] [id number] [address] [place] [phone] Oct, [facility] [address] [id number] [address] [place] [id number] 13 Oct, 2014 [facility] [address] [id number] [address] [place] [address], [place] [address] Oct, [facility] [address] [id number] [address] [place] [address], [place] [address] 17 Sep, 2014 [facility] [address] [id number] [address] [place] [address], [place] [address] 17 Sep, 2014 [facility] [address] [id number] [address] [place] [address], [place] [address] 15 Sep, 2014 [facility] [address] [id number] [address] [place] [address], [place] [address] 15 Sep, 2014 [facility] [address] [id number] [address] [place] [address], [place] [address] Aug, [facility] [address] [id number] [address] [place] [address], [place] [address] Aug, [facility] [address] [id number] [address] [place] [address], [place] [address] Aug, [facility] [address] [id number] [address] [place] [address], [place] [address] Aug, [facility] [address] [id number] [address] [place] [address], [place] [address] Aug, [facility] [address] [id number] [address] [place] [address], [place] [address] Aug, [facility] [address] [id number] [address] [place] [address], [place] [address] Jul, [facility] [address] [id number] [address] [place] [address], [place] [address] Jul, [facility] [address] [id number] [address] [place] [address], [place] [address] Jul, [facility] [address] [id number] [address] [place] [address], [place] [address] Jul, [facility] [address] [id number] [address] [place] [address], [place] [address] 15 Jul, 2014 [facility] [address] [id number] [address] [place] [address], [place] [address] 15 Jul, 2014 [facility] [address] [id number] [address] [place] [address], [place] [address] 27 Jun, 2013 [facility] [address] [id number] [address] [place] [address], [place] [address] 27 Jun, 2013 [facility] [address] [id number] [address] [place] [address], [place] [address] 26 Jun, 2013 [facility] [address] [id number] [address] [place] [address], [place] [address] 26 Jun, 2013 [facility] [address] [id number] [address] [place] [address], [place] [address] 26 Jun, 2013 [facility] [address] [id number] [address] [place] [address], [place] [address] 26 Jun, 2013 [facility] [address] [id number] [address] [place] [address], [place] [address] 16 Jun, 2013 [facility] [address] [id number] [address] [place] [address], [place] [address] 16 Jun, 2013 [facility] [address] [id number] [address] [place] [address], [place] [address] 16 Jun, 2013 [facility] [address] [id number] [address] [place] [address], [place] [address] 16 Jun, 2013 [facility] [address] [id number] [address] [place] [address], [place] [address] 04 Jun, 2014 [facility] [address] [id number] [address] [place] [address], [place] [address] May, [facility] [address] [id number] [address] [place] [address], [place] [address] May, [facility] [address] [id number] [address] [place] [address], [place] [address] May, [facility] [address] [id number] [facility] [address] May, [facility] [address] [id number] [address] [place] [address], [place] [address] May, [facility] [address] [id number] [address] [place] [address], [place] [address] May, [facility] [address] [id number] [address] [place] [address], [place] [address] May, [facility] [address] [id number] [address] [place] [address], [place] [address] May, [facility] [address] [id number] [address] [place] [address], [place] [address] May, [facility] [address] [id number] [address] [place] [address], [place] [address] May, [facility] [address] [id number] [address] [place] [address], [place] [address] Apr, [facility] [address] [id number] [address] [place] [address], [place] [address] Apr, [facility] [address] [id number] [address] [place] [address], [place] [address] Apr, [facility] [address] [id number] [address] [place] [address], [place] [address] Apr, [facility] [address] [id number] [address] [place] [address], [place] [address] Apr, [facility] [address] [id number] [address] [place] [address], [place] [address] Apr, [facility] [address] [id number] [address] [place] [address], [place] [address] Apr, [facility] [address] [id number] [address] [place] [address], [place] [address] Apr, [facility] [address] [id number] [address] [place] [address], [place] [address] 15 Apr, 2014 [facility] [address] [id number] [facility] [place] [address] 03 Apr, 2014 [facility] [address] [id number] [facility] [place] [address] Mar, [facility] [address] [id number] [address] [place] [address], [place] [address] Mar, [facility] [address] [id number] [address] [place] [address], [place] [address] Mar, [facility] [address] [id number] [address] [place] [address], [place] [address] 24 Mar, 2014 [facility] [address] [id number] [address] [place] [address], [place] [address] Mar, [facility] [address] [id number] [address] [place] [address], [place] [address] 18 Mar, 2014 [facility] [address] [id number] [address] [place] [address], [place] [address] 18 Mar, 2014 [facility] [address] [id number] [address] [place] [address], [place] [address] 16 Mar, 2014 [facility] [address] [id number] [address] [place] [address], [place] [address] 16 Mar, 2014 [facility] [address] [id number] [address] [place] [address], [place] [address] 13 Mar, 2014 [facility] [address] [id number] [address] [place] [address], [place] [address] 13 Mar, 2014 [facility] [address] [id number] [address] [place] [address], [place] [address] 11 Mar, 2014 [facility] [address] [id number] [address] [place] [address], [place] [address] 11 Mar, 2014 [facility] [address] [id number] [address] [place] [address], [place] [address] 10 Mar, 2014 [facility] [address] [id number] [address] [place] [address], [place] [address] Mar, [facility] [address] [id number] [address] [place] [address], [place] [address] Mar, [facility] [address] [id number] [address] [place] [address], [place] [address] Mar, [facility] [address] [id number] [address] [place] [address], [place] [address] Mar, [facility] [address] [id number] [address] [place] [address], [place] [address] Mar, [facility] [address] [id number] [address] [place] [address], [place] [address] Mar, [facility] [address] [id number] [address] [place] [address], [place] [address] February, [facility] [address] [id number] [address] [place] [address], [place] [address] February, [facility] [address] [id number] [address] [place] [address], [place] [address] February, [facility] [address] [id number] [address] [place] [address], [place] [address] February, [facility] [address] [id number] [address] [place] [address], [place] [address] February, [facility] [address] [id number] [address] [place] [address], [place] [address] February, [facility] [address] [id number] [address] [place] [address], [place] [address] February, [facility] [address] [id number] [address] [place] [address], [place] [address] February, [facility] [address] [id number] [address] [place] [address], [place] [address] February, [facility] [address] [id number] [address] [place] [address], [place] [address] February, [facility] [address] [id number] [address] [place] [address], [place] [address] February, [facility] [address] [id number] [address] [place] [address], [place] [address] February, [facility] [address] [id number] [address] [place] [address], [place] [address] February, [facility] [address] [id number] [address] [place] [address], [place] [address] February, [facility] [address] [id number] [address] [place] [address], [place] [address] February, [facility] [address] [id number] [address] [place] [address], [place] [address] February, [facility] [address] [id number] [address] [place] [address], [place] [address] February, [facility] [address] [id number] [address] [place] [address], [place] [address] February, [facility] [address] [id number] [address] [place] [address], [place] [address] February, [facility] [address] [id number] [address] [place] [address], [place] [address] February, [facility] [address] [id number] [address] [place] [address], [place] [address] February, [facility] [address] [id number] [address] [place] [address], [place] [address] Jan, [facility] [address] [id number] [address] [place] [address], [place] [address] Jan, [facility] [address] [id number] [address] [place] [address], [place] [address] Jan, [facility] [address] [id number] [address] [place] [address], [place] [address] Jan, [facility] [address] [id number] [facility] [place] [address] 18 Jan, 2014 [facility] [address] [id number] [address] [place] [address], [place] [address] 18 Jan, 2014 [facility] [address] [id number] [address] [place] [address], [place] [address] 10 Jan, 2014 [facility] [address] [id number] [address] [place] [address], [place] [address] 10 Jan, 2014 [facility] [address] [id number] [address] [place] [address], [place] [address] 21 Dec, 2013 [facility] [address] [id number] [address] [place] [address], [place] [address] 20 Dec, 2013 [facility] [address] [id number] [address] [place] [address], [place] [address] 20 Dec, 2013 [facility] [address] [id number] [address] [place] [address], [place] [address] 19 Dec, 2013 [facility] [address] [id number] [address] [place] [address], [place] [address] 19 Dec, 2013 [facility] [address] [id number] [address] [place] [address], [place] [address] 15 Dec, 2013 [facility] [address] [id number] [address] [place] [address], [place] [address] 15 Dec, 2013 [facility] [address] [id number] [address] [place] [address], [place] [address] 11 Dec, 2013 [facility] [address] [id number] [address] [place] [address], [place] [address] 10 Dec, 2013 [facility] [address] [id number] [address] [place] [address], [place] [address] 10 Dec, 2013 [facility] [address] [id number] [address] [place] [address], [place] [address] 18 Nov, 2013 [facility] [address] [id number] [address] [place] [address], [place] [address] Nov, [facility] [address] [id number] [address] [place] [address], [place] [address] Nov, [facility] [address] [id number] [address] [place] [address], [place] [address] Nov, [facility] [address] [id number] [address] [place] [address], [place] [address] Nov, [facility] [address] [id number] [address] [place] [address], [place] [address] Oct, [facility] [address] [id number] [address] [place] [address], [place] [address] Oct, [facility] [address] [id number] [address] [place] [address], [place] [address] Oct, [facility] [address] [id number] [address] [place] [address], [place] [address] Sep, [facility] [address] [id number] [address] [place] [address], [place] [address] Sep, [facility] [address] [id number] [address] [place] [address] [address] Sep, [facility] [address] [id number] [address] [place] [address], [place] [address] Sep, [facility] [address] [id number] [address] [place] [address], [place] [address] Aug, [facility] [address] [id number] [address] [place] [address] Aug, [facility] [address] [id number] [address] [place] [address], [place] [address] Jul, [facility] [address] [id number] [address] [place] [address], [place] [address] Jul, [facility] [address] [id number] [address] [place] [address], [place] [address] Jul, [facility] [address] [id number] [address] [place] [address], [place] [address] 09 Jul, 2013 [facility] [address] [id number] [address] [place] [address], [place] [address] Jul, [facility] [address] [id number] [address] [place] [address], [place] [address] 25 Jun, 2013 [facility] [address] [id number] [address] [place] [address], [place] [address] 25 Jun, 2013 [facility] [address] [id number] [address] [place] [address], [place] [address] 19 Jun, 2013 [facility] [address] [id number] [address] [place] [address], [place] [address] 18 Jun, 2013 [facility] [address] [id number] [address] [place] [address], [place] [address] 16 Jun, 2013 [facility] [address] [id number] [address] [place] [address], [place] [address] 12 Jun, 2013 [facility] [address] [id number] [address] [place] [address], [place] [address] 11 Jun, 2013 [facility] [address] [id number] [address] [place] [address], [place] [address] May, [facility] [address] [id number] [address] [place] [address], [place] [address] May, [facility] [address] [id number] [address] [place] [address], [place] [address] Apr, [facility] [address] [id number] [address] [place] [address], [place] [address] Apr, [facility] [address] [id number] [address] [place] [address], [place] [address] Apr, [facility] [address] [id number] [address] [place] [address], [place] [address] Mar, [facility] [address] [id number] [address] [place] [address], [place] [address] Mar, [facility] [address] [id number] [address] [place] [address], [place] [address] February, [facility] [address] [id number] [address] [place] [address], [place] [address] February, [facility] [address] [id number] [address] [place] [address], [place] [address] February, [facility] [address] [id number] [address] [place] [address], [place] [address] February, [facility] [address] [id number] [address] [place] [address], [place] [address] Jan, [facility] [address] [id number] [address] [place] [address], [place] [address] Jan, [facility] [address] [id number] [address] [place] [address], [place] [address] Jan, [facility] [address] [id number] [address] [place] [address], [place] [address] Dec, [facility] [address] [id number] [address] [place] [address], [place] [address] Dec, [facility] [address] [id number] [address] [place] [address], [place] [address] Dec, [facility] [address] [id number] [address] [place] [address], [place] [address] Dec, [facility] [address] [id number] [address] [place] [address], [place] [address] Nov, [facility] [address] [id number] [address] [place] [address], [place] [address] Nov, [facility] [address] [id number] [address] [place] [address], [place] [address] Oct, [facility] [address] [id number] [address] [place] [address], [place] [address] Oct, [facility] [address] [id number] [address] [place] [address], [place] [address] Oct, [facility] [address] [id number] [address] [place] [address], [place] [address] Oct, [facility] [address] [id number] [address] [place] [address], [place] [address] Aug, [facility] [address] [id number] [address] [place] [address], [place] [address] Aug, [facility] [address] [id number] [address] [place] [address], [place] [address] Jun, [facility] [address] [id number] [address] [place] [address], [place] [address] May, [facility] [address] [id number] [address] [place] [address], [place] [address] May, [facility] [address] [id number] [address] [place] [address], [place] [address] Apr, [facility] [address] [id number] [address] [place] [address], [place] [address] Apr, [facility] [address] [id number] [address] [place] [address], [place] [address] Apr, [facility] [address] [id number] [address] [place] [address], [place] [address] Mar, [facility] [address] [id number] [address] [place] [address], [place] [address] Mar, [facility] [address] [id number] [address] [place] [address], [place] [address] Mar, [facility] [address] [id number] [address] [place] [address], [place] [address] Mar, [facility] [address] [id number] [address] [place] [address], [place] [address] Mar, [facility] [address] [id number] [address] [place] [address], [place] [address] February, [facility] [address] [id number] [address] [place] [address], [place] [address] February, [facility] [address] [id number] [address] [place] [address], [place] [address] February, [facility] [address] [id number] [address] [place] [address], [place] [address] February, [facility] [address] [id number] [address] [place] [address], [place] [address] February, [facility] [address] [id number] [address] [place] [address], [place] [address] February, [facility] [address] [id number] [address] [place] [address], [place] [address] February, [facility] [address] [id number] [address] [place] [address], [place] [address] Jan, [facility] [address] [id number] [address] [place] [address], [place] [address] 18 Jan, 2012 [facility] [address] [id number] [address] [place] [address], [place] [address] 17 Jan, 2012 [facility] [address] [id number] [address] [place] [address], [place] [address] 13 Jan, 2012 [facility] [address] [id number] [address] [place] [address], [place] [address] 10 Jan, 2012 [facility] [address] [id number] [address] [place] [address], [place] [address] 04 Jan, 2012 [facility] [address] [id number] [address] [place] [address], [place] [address] 30 Dec, 2011 [facility] [address] [id number] [address] [place] [address], [place] [address] 24 Dec, 2011 [facility] [address] [id number] [address] [place] [address], [place] [address] 20 Dec, 2011 [facility] [address] [id number] [address] [place] [address], [place] [address] Dec, [facility] [address] [id number] [address] [place] [address], [place] [address] Dec, [facility] [address] [id number] [address] [place] [address], [place] [address] Nov, [facility] [address] [id number] [address] [place] [address], [place] [address] Nov, [facility] [address] [id number] [address] [place] [address], [place] [address] Nov, [facility] [address] [id number] [address] [place] [address], [place] [address] Nov, [facility] [address] [id number] [address] [place] [address], [place] [address] Nov, [facility] [address] [id number] [address] [place] [address], [place] [address] Nov, [facility] [address] [id number] [address] [place] [address], [place] [address] Oct, [facility] [address] [id number] [address] [place] [address], [place] [address] Oct, [facility] [address] [id number] [address] [place] [address], [place] [address] Oct, [facility] [address] [id number] [address] [place] [address], [place] [address] Oct, [facility] [address] [id number] [address] [place] [address], [place] [address] Oct, [facility] [address] [id number] [address] [place] [address], [place] [address] Sep, [facility] [address] [id number] [address] [place] [address], [place] [address] Sep, [facility] [address] [id number] [address] [place] [address], [place] [address] Sep, [facility] [address] [id number] [address] [place] [address], [place] [address] 14 Sep, 2011 [facility] [address] [id number] [address] [place] [address], [place] [address] 14 Sep, 2011 [facility] [address] [id number] [address] [place] [address], [place] [address] 13 Sep, 2011 [facility] [address] [id number] [address] [place] [address], [place] [address] 12 Sep, 2011 [facility] [address] [id number] [address] [place] [address], [place] [address] 09 Sep, 2011 [facility] [address] [id number] [address] [place] [address], [place] [address] 05 Sep, 2011 [facility] [address] [id number] [address] [place] [address], [place] [address] 30 Aug, 2011 [facility] [address] [id number] [address] [place] [address], [place] [address] 30 Aug, 2011 [facility] [address] [id number] [address] [place] [address], [place] [address] 25 Aug, 2011 [facility] [address] [id number] [address] [place] [address], [place] [address] 23 Aug, 2011 [facility] [address] [id number] [address] [place] [address], [place] [address] 23 Aug, 2011 [facility] [address] [id number] [address] [place] [address], [place] [address] 22 Aug, 2011 [facility] [address] [id number] [address] [place] [address], [place] [address] 16 Aug, 2011 [facility] [address] [id number] [address] [place] [address], [place] [address] 16 Aug, 2011 [facility] [address] [id number] [address] [place] [address], [place] [address] 10 Aug, 2011 [facility] [address] [id number] [address] [place] [address], [place] [address] Aug, [facility] [address] [id number] [address] [place] [address], [place] [address] Aug, [facility] [address] [id number] [address] [place] [address], [place] [address] Aug, [facility] [address] [id number] [address] [place] [address], [place] [address] Jul, [facility] [address] [id number] [address] [place] [address], [place] [address] Jul, [facility] [address] [id number] [address] [place] [address], [place] [address] Jul, [facility] [address] [id number] [address] [place] [address], [place] [address] Jul, [facility] [address] [id number] [address] [place] [address], [place] [address] Jul, [facility] [address] [id number] [address] [place] [address] Jul, [facility] [address] [id number] [address] [place] [address], [place] [address] Jul, [facility] [address] [id number] [address] [place] [address] Jul, [facility] [address] [id number] [address] [place] [address] Jul, [facility] [address] [id number] [address] [place] [address] Jul, [facility] [address] [id number] [address] [place] [address] Nov, [facility] [address] [id number] [address] [place] [address] Aug, [facility] [address] [id number] [address] [place] [address] Aug, [facility] [address] [id number] [address] [place] [address] Aug, [facility] [address] [facility] [id number] [address] [place] [address] Aug, [facility] [address] [facility] [id number] [address] [place] [address] Jul, IMMUNIZATIONS No Known Immunizations SOCIAL HISTORY [...] Suicide attempt by hanging 2015 Hospitalization History [facility] 01/30/2018-02/10/20 08 Hospitalization History [facility] 05/04/18- [facility] History [facility]
--- OUTSIDE RECORDS SUMMARY | 2020-04-04 01:44 | XMS REPORT ---
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 Name Role Phone Migration, Doctor Unavailable Unavailable PROBLEMS Type Condition ICD9-CM Code [id number] Code Onset Dates Condition S tatus SNOMED Code Problem Paranoid schizophrenia F20.0 Active 21339351 Problem Borderline personality disorder F60.3 Active 39541899 Problem Schizoaffective disorder, depressive type F25.1 Active 85690161 Problem Schizoaffective disorder, unspecified F25.9 Active 40064196 Problem Attention deficit hyperactivity disorder (ADHD), inattentive type, 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 51698642 Problem Posttraumatic stress disorder F43.10 Active 76596136 Problem High risk medication use Z79.899 Activ e [id number] ALLERGIES No Information ENCOUNTERS Encounter Location Date Diagnosis [place] [address] [address] Jan, [place] [address] [address] Dec, Paranoid schizophrenia F20.0 ; Attention deficit hyperactivity disorder (ADHD), inattentive type, 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 ; Posttraumatic stress disorder F43.10 and Borderline personality disorder F60.3 [place] [address] [address] Nov, Paranoid schizophrenia F20.0 ; Attention deficit hyperactivity disorder (ADHD), inattentive type, 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 ; Posttraumatic stress disorder F43.10 and Borderline personality disorder F60.3 [place] [address] [address] Nov, [place] [address] [address] Oct, Paranoid schizophrenia F20.0 ; Attention deficit hyperactivity disorder (ADHD), inattentive type, 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 ; Posttraumatic stress disorder F43.10 and Borderline personality disorder F60.3 [facility] [address] [address] Oct, [facility] [address] [address] Sep, Paranoid schizophrenia F20.0 ; Attention deficit hyperactivity disorder (ADHD), inattentive type, 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 ; Posttraumatic stress disorder F43.10 and Borderline personality disorder F60.3 [facility] [address] [address] Aug, Paranoid schizophrenia F20.0 ; Attention deficit hyperactivity disorder (ADHD), inattentive type, 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 ; Posttraumatic stress disorder F43.10 and Borderline personality disorder F60.3 [facility] [address] [address] Aug, [facility] [address] [facility] [id number] [address] [place] [address] Aug, Acute bronchitis, unspecifie d organism J20.9 [facility] [address] [address] Aug, [facility] [address] [address] Aug, [facility] [address] [address] Jul, Paranoid schizophrenia F20.0 ; Attention deficit hyperactivity disorder (ADHD), inattentive type, 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 ; Posttraumatic stress disorder F43.10 and Borderline personality disorder F60.3 [facility] [address] [address] Jul, [facility] [address] [address] Jun, Paranoid schizophrenia F20.0 ; Other katherin g term (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 Z79.899 ; Attention deficit hyperactivity disorder (ADHD), inattentive type, 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 ; Posttraumatic stress disorder F43.10 and Borderline personality disorder F60.3 [place] [address] [address] Jun, Paranoid schizophrenia F20.0 ; Attention deficit hyperactivity disorder (ADHD), inattentive type, 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 ; Posttraumatic stress disorder F43.10 ; Borderline personality disorder F60.3 and 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 [place] [address] [address] Apr, Paranoid schizophrenia F20.0 ; Posttraum atic stress disorder F43.10 ; Attention deficit hyperactivity disorder (ADHD), inattentive type, 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 and Borderline personality disorder F60.3 [place] [address] [address] Apr, Paranoid schizophrenia F20.0 [place] [address] [address] Apr, Paranoid schizophrenia F20.0 ; Posttraum atic stress disorder F43.10 ; Attention deficit hyperactivity disorder (ADHD), inattentive type, 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 and Borderline personality disorder F60.3 [place] [address] [address] Mar, Paranoid schizophrenia F20.0 [place] [address] [address] Mar, Paranoid schizophrenia F20.0 ; Posttraum atic stress disorder F43.10 ; Attention deficit hyperactivity disorder (ADHD), inattentive type, 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 and Borderline personality disorder F60.3 [place] [address] [address] February, Paranoid schizophrenia F20.0 [place] [address] [place] [id number] Jan, Paranoid schizophrenia F20.0 ; Posttraum atic stress disorder F43.10 ; Attention deficit hyperactivity disorder (ADHD), inattentive type, 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 and Borderline personality disorder F60.3 [facility] [address] [address] Dec, Paranoid schizophrenia F20.0 ; Posttraum atic stress disorder F43.10 ; Attention deficit hyperactivity disorder (ADHD), inattentive type, 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 and Borderline personality disorder F60.3 [facility] [address] [address] Dec, Paranoid schizophrenia F20.0 ; Posttraum atic stress disorder F43.10 ; Attention deficit hyperactivity disorder (ADHD), inattentive type, 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 and Borderline personality disorder F60.3 [place] [address] [address] Oct, Paranoid schizophrenia F20.0 ; Posttraum atic stress disorder F43.10 ; Attention deficit hyperactivity disorder (ADHD), inattentive type, 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 and Borderline personality disorder F60.3 [place] [address] [address] Oct, Paranoid schizophrenia F20.0 ; Posttraum atic stress disorder F43.10 ; Attention deficit hyperactivity disorder (ADHD), inattentive type, 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 and Borderline personality disorder F60.3 [facility] [address] [address] Aug, [facility] [address] [address] Aug, Paranoid schizophrenia F20.0 ; Posttraum atic stress disorder F43.10 ; Attention deficit hyperactivity disorder (ADHD), inattentive type, 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 and Borderline personality disorder F60.3 [facility] [address] [facility] [id number] [address] [place] [address] Jul, Dry skin dermatitis L85.3 [facility] [address] [place] [id number] [place] [address] Jul, [facility] [address] [address] Jul, Paranoid schizophrenia F20.0 [facility] [address] [address] May, Paranoid schizophrenia F20.0 ; Posttraum atic stress disorder F43.10 ; Attention deficit hyperactivity disorder (ADHD), inattentive type, 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 and Borderline personality disorder F60.3 [facility] [address] [address] May, [facility] [address] [address] May, Paranoid schizophrenia F20.0 [place] [address] [address] May, Paranoid schizophrenia F20.0 ; Posttraum atic stress disorder F43.10 ; Attention deficit hyperactivity disorder (ADHD), inattentive type, 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 and Borderline personality disorder F60.3 [place] [address] [address] Apr, [facility] [address] [address] Apr, Paranoid schizophrenia F20.0 ; Posttraum atic stress disorder F43.10 ; Attention deficit hyperactivity disorder (ADHD), inattentive type, 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 and Borderline personality disorder F60.3 [place] [address] [address] Apr, [facility] [address] [address] Apr, Schizoaffective disorder, depressive typ e F25.1 and Borderline personality disorder F60.3 [facility] [address] [address] Apr, Paranoid schizophrenia F20.0 ; Posttraum atic stress disorder F43.10 ; Attention deficit hyperactivity disorder (ADHD), inattentive type, 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 and Borderline personality disorder F60.3 [facility] [address] [place] [address] Apr, [facility] [address] [address] Apr, Paranoid schizophrenia F20.0 ; Posttraum atic stress disorder F43.10 ; Attention deficit hyperactivity disorder (ADHD), inattentive type, 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 and Borderline personality disorder F60.3 [facility] [address] [address] Apr, [facility] [address] [address] Mar, Paranoid schizophrenia F20.0 [facility] [address] [address] Mar, [facility] [address] [address] Mar, Paranoid schizophrenia F20.0 ; Posttraum atic stress disorder F43.10 ; Attention deficit hyperactivity disorder (ADHD), inattentive type, 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 and Borderline personality disorder F60.3 [facility] [address] [address] February, Paranoid schizophrenia F20.0 [facility] [address] [address] February, Paranoid schizophrenia F20.0 ; Posttraum atic stress disorder F43.10 ; Attention deficit hyperactivity disorder (ADHD), inattentive type, 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 and Borderline personality disorder F60.3 [facility] [address] [address] February, Paranoid schizophrenia F20.0 ; Posttraum atic stress disorder F43.10 ; Attention deficit hyperactivity disorder (ADHD), inattentive type, 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 and Borderline personality disorder F60.3 [facility] [address] [address] February, [facility] [address] [address] February, Paranoid schizophrenia F20.0 [facility] [address] [place] [id number] [place] [address] February, Paranoid schizophrenia F20.0 [facility] [address] [place] [id number] [place] [address] February, Paranoid schizophrenia F20.0 ; Posttraum atic stress disorder F43.10 ; Attention deficit hyperactivity disorder (ADHD), inattentive type, 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 and Borderline personality disorder F60.3 [facility] [address] [place] [id number] [place] [address] Jan, Paranoid schizophrenia F20.0 ; Posttraum atic stress disorder F43.10 ; Attention deficit hyperactivity disorder (ADHD), inattentive type, 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 and Borderline personality disorder F60.3 [facility] [address] [address] Jan, Paranoid schizophrenia F20.0 [facility] [address] [address] Jan, Paranoid schizophrenia F20.0 [facility] [address] [address] Jan, Paranoid schizophrenia F20.0 ; Posttraum atic stress disorder F43.10 ; Attention deficit hyperactivity disorder (ADHD), inattentive type, 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 and Borderline personality disorder F60.3 [facility] [address] [address] Dec, [facility] [address] [address] Nov, Paranoid schizophrenia F20.0 ; Posttraum atic stress disorder F43.10 ; Attention deficit hyperactivity disorder (ADHD), inattentive type, 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 and Borderline personality disorder F60.3 [facility] [address] [address] Nov, [facility] [address] [address] Oct, Paranoid schizophrenia F20.0 [facility] [address] [address] Oct, Paranoid schizophrenia F20.0 ; Posttraum atic stress disorder F43.10 ; Attention deficit hyperactivity disorder (ADHD), inattentive type, 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 ; Borderline personality disorder F60.3 and 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 [facility] [address] [address] Oct, [facility] [address] [address] Oct, [facility] [address] [address] Sep, [facility] [address] [address] Sep, Paranoid schizophrenia F20.0 ; Posttraum atic stress disorder F43.10 ; Attention deficit hyperactivity disorder (ADHD), inattentive type, 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 and Borderline personality disorder F60.3 [facility] [address] [address] Sep, Paranoid schizophrenia F20.0 [facility] [address] [address] Aug, Paranoid schizophrenia F20.0 ; Posttraum atic stress disorder F43.10 ; Attention deficit hyperactivity disorder (ADHD), inattentive type, 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 and Borderline personality disorder F60.3 [facility] [address] [address] Aug, Paranoid schizophrenia F20.0 ; Posttraum atic stress disorder F43.10 ; Attention deficit hyperactivity disorder (ADHD), inattentive type, 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 and Borderline personality disorder F60.3 [facility] [address] [address] Aug, [facility] [address] [address] Jul, Paranoid schizophrenia F20.0 ; Posttraum atic stress disorder F43.10 ; Attention deficit hyperactivity disorder (ADHD), inattentive type, 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 and Borderline personality disorder F60.3 [facility] [address] [address] Jul, Paranoid schizophrenia F20.0 [facility] [address] [address] Jul, Paranoid schizophrenia F20.0 ; Posttraum atic stress disorder F43.10 ; Attention deficit hyperactivity disorder (ADHD), inattentive type, 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 and Borderline personality disorder F60.3 [facility] [address] [address] Jun, Paranoid schizophrenia F20.0 ; Posttraum atic stress disorder F43.10 ; Attention deficit hyperactivity disorder (ADHD), inattentive type, 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 and Borderline personality disorder F60.3 [facility] [address] [address] May, Other jail (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 Z 79.899 [facility] [address] [address] May, [facility] [address] [address] May, [facility] [address] [address] May, Attention deficit hyperactivity disorder (ADHD), inattentive type, 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 [facility] [address] [address] May, [facility] [address] [address] May, Attention deficit hyperactivity disorder (ADHD), inattentive type, 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 [facility] [address] [address] May, Paranoid schizophrenia F20.0 ; Posttraum atic stress disorder F43.10 ; Attention deficit hyperactivity disorder (ADHD), inattentive type, 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 and Other jail (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 Z79.899 [facility] [address] [address] Apr, Paranoid schizophrenia F20.0 [facility] [address] [address] Apr, Paranoid schizophrenia F20.0 ; Posttraum atic stress disorder F43.10 and Attention deficit hyperactivity disorder (ADHD), inattentive type, 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 [facility] [address] [address] February, [facility] [address] [address] February, Paranoid schizophrenia F20.0 ; Posttraum atic stress disorder F43.10 and Attention deficit hyperactivity disorder (ADHD), inattentive type, 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 [facility] [address] [address] February, Paranoid schizophrenia F20.0 ; Posttraum atic stress disorder F43.10 and Attention deficit hyperactivity disorder (ADHD), inattentive type, 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 [facility] [address] [address] Jan, Paranoid schizophrenia F20.0 ; Posttraum atic stress disorder F43.10 and Attention deficit hyperactivity disorder (ADHD), inattentive type, 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 [facility] [address] [id number] Dec, Dental examination Z01.20 [facility] [address] [id number] Nov, Dental examination Z01.20 [facility] [address] [id number] Nov, Dental examination Z01.20 [facility] [address] [id number] Nov, 2016 Dental caries K02.9 [facility] [address] [address] 13 Nov, 2016 High risk medication use Z79.899 [facility] [address] [address] 01 Nov, 2016 Paranoid schizophrenia F20.0 ; Posttraum atic stress disorder F43.10 ; Attention deficit hyperactivity disorder (ADHD), inattentive type, 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 and Borderline personality disorder in adult F60.3 [facility] [address] [id number] Oct, Dental caries K02.9 [facility] [address] [address] 05 Sep, 2016 Paranoid schizophrenia F20.0 ; Posttraum atic stress disorder F43.10 and Attention deficit hyperactivity disorder (ADHD), inattentive type, 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 [facility] [address] [address] 16 Aug, 2016 Paranoid schizophrenia F20.0 ; Posttraum atic stress disorder F43.10 and Attention deficit hyperactivity disorder (ADHD), inattentive type, 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 [facility] [address] [facility] [id number] [address] [place] [address] Aug, Strep throat J02.0 and Cough R05 [facility] [address] [address] Aug, [facility] [address] [address] 24 Jul, 2016 Paranoid schizophrenia F20.0 ; Posttraum atic stress disorder F43.10 and Attention deficit hyperactivity disorder (ADHD), inattentive type, 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 [facility] [address] [address] Jul, [facility] [address] [address] Jun, Paranoid schizophrenia F20.0 ; Posttraum atic stress disorder F43.10 and Attention deficit hyperactivity disorder (ADHD), inattentive type, 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 [facility] [address] [facility] [place] [id number] Jun, Dental examination Z01.20 [facility] [address] [id number] [place] [address] Jun, [facility] [address] [id number] [place] [address] May, Paranoid schizophrenia F20.0 [facility] [address] [id number] [place] [address] May, Paranoid schizophrenia F20.0 ; Posttraum atic stress disorder F43.10 and Attention deficit hyperactivity disorder (ADHD), inattentive type, 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 [facility] [address] [id number] [place] [address] May, [facility] [address] [place] [id number] [place] [address] May, Paranoid schizophrenia F20.0 [facility] [address] [place] [id number] [place] [address] May, [facility] [address] [id number] [place] [address] May, Paranoid schizophrenia F20.0 [facility] [address] [place] [id number] [place] [address] May, Schizoaffective disorder, unspecified F2 5.9 [facility] [address] [id number] [place] [address] May, Schizoaffective disorder, unspecified F2 5.9 [facility] [address] [place] [id number] [place] [address] May, [facility] [address] [place] [id number] [place] [address] May, Paranoid schizophrenia F20.0 [facility] [address] [address] May, Paranoid schizophrenia F20.0 ; Posttraum atic stress disorder F43.10 and Attention deficit hyperactivity disorder (ADHD), inattentive type, 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 [facility] [address] [place] [id number] [place] [address] Mar, [facility] [address] [address] Mar, Paranoid schizophrenia F20.0 ; Posttraum atic stress disorder F43.10 and Attention deficit hyperactivity disorder (ADHD), inattentive type, 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 [facility] [address] [address] Mar, Paranoid schizophrenia F20.0 [facility] [address] [address] Mar, Paranoid schizophrenia F20.0 ; Attention deficit hyperactivity disorder (ADHD), inattentive type, 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 and Posttraumatic stress disorder F43.10 [facility] [address] [address] Mar, [facility] [address] [address] Mar, Paranoid schizophrenia F20.0 ; Posttraum atic stress disorder F43.10 and Attention deficit hyperactivity disorder (ADHD), inattentive type, 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 [facility] [address] [place] [id number] [place] [address] February, [facility] [address] [address] February, [facility] [address] [address] February, [facility] [address] [address] February, [facility] [address] [address] Jan, Paranoid schizophrenia F20.0 [facility] [address] [id number] Jan, Dental examination Z01.20 [facility] [address] [id number] Jan, Dental caries K02.9 [facility] [address] [id number] Jan, Dental examination Z01.20 [facility] [address] [id number] Dec, Encounter for dental examination Z01.20 [facility] [address] [address] Dec, Paranoid schizophrenia F20.0 [facility] [address] [id number] Dec, Dental examination Z01.20 [facility] [address] [address] Dec, [facility] [address] [address] Dec, Paranoid schizophrenia F20.0 ; Posttraum atic stress disorder F43.10 and Attention deficit hyperactivity disorder (ADHD), inattentive type, 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 [facility] [address] [address] Nov, Schizoaffective disorder, unspecified F2 5.9 [facility] [address] [address] Oct, Paranoid schizophrenia F20.0 [facility] [address] [address] Oct, [facility] [address] [address] Sep, Paranoid schizophrenia F20.0 ; Posttraum atic stress disorder F43.10 and Attention deficit hyperactivity disorder (ADHD), inattentive type, 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 [facility] [address] [address] Sep, [facility] [address] [address] Sep, Paranoid schizophrenia F20.0 ; Posttraum atic stress disorder F43.10 and Attention deficit hyperactivity disorder (ADHD), inattentive type, 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 [facility] [address] [address] Aug, Paranoid schizophrenia F20.0 [facility] [address] [address] Aug, [facility] [address] [address] Aug, Posttraumatic stress disorder F43.10 ; P aranoid schizophrenia F20.0 and Attention deficit hyperactivity disorder (ADHD), inattentive type, 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 [facility] [address] [address] Jul, Bipolar disorder, unspecified F31.9 [facility] [address] [address] Jul, [facility] [address] [address] Jun, [facility] [address] [address] Jun, Schizoaffective disorder, chronic 295.72 ; Posttraumatic stress disorder 309.81 and Attention deficit disorder of childhood without mention of hyperactivity 314.00 [facility] [address] [address] May, [facility] [address] [address] May, [facility] [address] [address] May, Schizoaffective disorder, chronic 295.72 ; Posttraumatic stress disorder 309.81 ; Attention deficit disorder of childhood without mention of hyperactivity 314.00 and Bipolar disorder, unspecified 296.80 [facility] [address] [place] [id number] [place] [address] Apr, Schizoaffective disorder, chronic 295.72 [facility] [address] [address] Apr, [facility] [address] [address] Apr, Schizoaffective disorder, chronic 295.72 ; Posttraumatic stress disorder 309.81 and Attention deficit disorder of childhood without mention of hyperactivity 314.00 [facility] [address] [address] Mar, Disorganized schizophrenia, 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 [facility] [address] [address] Mar, [facility] [address] [address] Mar, [facility] [address] [address] Mar, [facility] [address] [address] Mar, [facility] [address] [address] February, Schizoaffective disorder, chronic 295.72 [facility] [address] [address] February, [facility] [address] [address] February, Attention deficit disorder of childhood without mention of hyperactivity 314.00 ; Posttraumatic stress disorder 309.81 and Schizoaffective disorder, chronic 295.72 [facility] [address] [address] Jan, [facility] [address] [address] Jan, [facility] [address] [address] Jan, [facility] [address] [facility] [id number] [facility] [place] [address] Dec, [facility] [address] [facility] [id number] [place] [address] Dec, [facility] [address] [id number] [place] [address] Dec, [facility] [address] [facility] [id number] [facility] [place] [address] Dec, [facility] [address] [facility] [id number] [facility] [place] [address] Dec, [facility] [address] [id number] [place] [address] Dec, [facility] [address] [id number] [place] [address] Dec, [facility] [address] [id number] [place] [address] Dec, [facility] [address] [id number] [place] [address] Nov, [facility] [address] [id number] [place] [address] Nov, [facility] [address] [id number] [place] [address] Nov, [facility] [address] [id number] [place] [address] Nov, 2014 [facility] [address] [facility] [id number] [place] [address] Nov, [facility] [address] [id number] [place] [address] Nov, 2014 [facility] [address] [id number] [place] [address] Nov, [facility] [address] [id number] [place] [address] Nov, [facility] [address] [id number] [place] [address] Nov, [facility] [address] [id number] [place] [address] Nov, [facility] [address] [id number] [place] [address] Oct, [facility] [address] [id number] [place] [address] Oct, [facility] [address] [id number] [place] [address] Oct, [facility] [address] [id number] [place] [address] Oct, [facility] [address] [id number] [place] [address] Oct, [facility] [address] [id number] [place] [address] Oct, [facility] [address] [id number] [place] [address] Oct, [facility] [address] [id number] [place] [address] Sep, [facility] [address] [id number] [place] [address] 17 Sep, 2014 [facility] [address] [id number] [place] [address] 15 Sep, 2014 [facility] [address] [id number] [place] [address] 15 Sep, 2014 [facility] [address] [id number] [place] [address] 20 Aug, 2014 [facility] [address] [id number] [place] [address] 20 Aug, 2014 [facility] [address] [id number] [place] [address] 14 Aug, 2014 [facility] [address] [id number] [place] [address] 14 Aug, 2014 [facility] [address] [facility] [id number] [place] [address] Aug, [facility] [address] [id number] [place] [address] Aug, [facility] [address] [id number] [place] [address] Jul, [facility] [address] [id number] [place] [address] Jul, [facility] [address] [id number] [place] [address] Jul, [facility] [address] [id number] [place] [address] Jul, [facility] [address] [id number] [place] [address] 15 Jul, 2014 [facility] [address] [id number] [place] [address] 15 Jul, 2014 [facility] [address] [id number] [place] [address] 27 Jun, 2013 [facility] [address] [id number] [place] [address] 27 Jun, 2013 [facility] [address] [id number] [place] [address] 26 Jun, 2013 [facility] [address] [id number] [place] [address] 26 Sep, 2013 [facility] [address] [id number] [place] [address] 26 Sep, 2013 [facility] [address] [id number] [place] [address] 26 Sep, 2013 [facility] [address] [id number] [place] [address] 16 Jun, 2013 [facility] [address] [id number] [place] [address] 16 Jun, 2013 [facility] [address] [id number] [facility] [place] [address] Jun, [facility] [address] [facility] [id number] [place] [address] Jun, [facility] [address] [facility] [id number] [place] [address] Jun, [facility] [address] [facility] [id number] [place] [address] May, [facility] [address] [facility] [id number] [place] [address] May, [facility] [address] [facility] [id number] [place] [address] May, [facility] [address] [id number] [place] [address] May, [facility] [address] [id number] [place] [address] May, [facility] [address] [id number] [place] [address] May, [facility] [address] [facility] [id number] [place] [address] May, [facility] [address] [id number] [place] [address] May, [facility] [address] [id number] [place] [address] May, [facility] [address] [id number] [place] [address] May, [facility] [address] [facility] [id number] [place] [address] Apr, [facility] [address] [id number] [place] [address] Apr, [facility] [address] [facility] [id number] [place] [address] Apr, [facility] [address] [id number] [place] [address] Apr, [facility] [address] [id number] [place] [address] 24 Apr, 2014 [facility] [address] [facility] [id number] [facility] [place] [address] 24 Apr, 2014 [facility] [address] [facility] [id number] [place] [address] 17 Apr, 2014 [facility] [address] [facility] [id number] [place] [address] Apr, [facility] [address] [facility] [id number] [place] [address] 15 Apr, 2014 [facility] [address] [id number] [place] [address] Apr, [facility] [address] [id number] [place] [address] Mar, [facility] [address] [id number] [place] [address] 26 Mar, 2014 [facility] [address] [id number] [place] [address] 25 Mar, 2014 [facility] [address] [id number] [place] [address] 24 Mar, 2014 [facility] [address] [id number] [place] [address] 20 Mar, 2014 [facility] [address] [id number] [place] [address] 18 Mar, 2014 [facility] [address] [facility] [id number] [place] [address] 18 Mar, 2014 [facility] [address] [facility] [id number] [place] [address] 16 Mar, 2014 [facility] [address] [id number] [place] [address] 16 Mar, 2014 [facility] [address] [id number] [place] [address] 13 Mar, 2014 [facility] [address] [id number] [place] [address] Mar, [facility] [address] [facility] [id number] [facility] [place] [address] Mar, [facility] [address] [facility] [id number] [place] [address] Mar, [facility] [address] [id number] [place] [address] Mar, [facility] [address] [id number] [place] [address] Mar, [facility] [address] [facility] [id number] [facility] [place] [address] Mar, [facility] [address] [id number] [place] [address] Mar, [facility] [address] [id number] [place] [address] Mar, [facility] [address] [id number] [place] [address] Mar, [facility] [address] [id number] [place] [address] Mar, [facility] [address] [id number] [place] [address] February, [facility] [address] [id number] [place] [address] February, [facility] [address] [id number] [place] [address] February, [facility] [address] [facility] [id number] [place] [address] February, [facility] [address] [id number] [place] [address] February, [facility] [address] [id number] [place] [address] February, [facility] [address] [id number] [place] [address] February, [facility] [address] [id number] [place] [address] February, [facility] [address] [id number] [place] [address] February, [facility] [address] [id number] [place] [address] February, [facility] [address] [id number] [place] [address] February, [facility] [address] [id number] [place] [address] February, [facility] [address] [id number] [place] [address] February, [facility] [address] [id number] [place] [address] February, [facility] [address] [id number] [place] [address] February, [facility] [address] [id number] [place] [address] February, [facility] [address] [id number] [place] [address] February, [facility] [address] [id number] [place] [address] February, [facility] [address] [id number] [place] [address] February, [facility] [address] [id number] [place] [address] February, [facility] [address] [id number] [place] [address] February, [facility] [address] [id number] [place] [address] Jan, [facility] [address] [id number] [place] [address] Jan, [facility] [address] [id number] [place] [address] Jan, [facility] [address] [facility] [id number] [place] [address] 18 Jan, 2014 [facility] [address] [facility] [id number] [place] [address] 18 Jan, 2014 [facility] [address] [id number] [place] [address] 18 Jan, 2014 [facility] [address] [id number] [place] [address] 10 Jan, 2014 [facility] [address] [facility] [id number] [place] [address] 10 Jan, 2014 [facility] [address] [id number] [place] [address] 21 Dec, 2013 [facility] [address] [id number] [place] [address] 20 Dec, 2013 [facility] [address] [id number] [place] [address] 20 Dec, 2013 [facility] [address] [id number] [place] [address] 19 Dec, 2013 [facility] [address] [id number] [place] [address] 19 Dec, 2013 [facility] [address] [id number] [place] [address] 15 Dec, 2013 [facility] [address] [id number] [place] [address] 15 Dec, 2013 [facility] [address] [id number] [place] [address] 11 Dec, 2013 [facility] [address] [id number] [place] [address] 10 Dec, 2013 [facility] [address] [id number] [place] [address] 10 Dec, 2013 [facility] [address] [id number] [place] [address] 18 Nov, 2013 [facility] [address] [id number] [place] [address] Nov, [facility] [address] [id number] [place] [address] Nov, [facility] [address] [id number] [place] [address] Nov, [facility] [address] [id number] [place] [address] Nov, [facility] [address] [id number] [place] [address] Oct, [facility] [address] [id number] [place] [address] Oct, [facility] [address] [id number] [place] [address] Oct, [facility] [address] [id number] [place] [address] Sep, [facility] [address] [id number] [place] [address] Sep, [facility] [address] [id number] [place] [address] Sep, [facility] [address] [id number] [place] [address] Sep, [facility] [address] [id number] [place] [address] Aug, [facility] [address] [id number] [place] [address] Aug, [facility] [address] [id number] [place] [address] Jul, [facility] [address] [id number] [place] [address] Jul, [facility] [address] [id number] [place] [address] Jul, [facility] [address] [id number] [place] [address] Jul, [facility] [address] [id number] [place] [address] Jul, [facility] [address] [id number] [place] [address] Jun, [facility] [address] [id number] [place] [address] 25 Jun, 2013 [facility] [address] [id number] [place] [address] 19 Jun, 2013 [facility] [address] [id number] [place] [address] 18 Jun, 2013 [facility] [address] [id number] [place] [address] 16 Jun, 2013 [facility] [address] [id number] [place] [address] 12 Jun, 2013 [facility] [address] [id number] [place] [address] Jun, [facility] [address] [id number] [place] [address] May, [facility] [address] [id number] [place] [address] May, [facility] [address] [id number] [place] [address] Apr, [facility] [address] [id number] [place] [address] Apr, [facility] [address] [id number] [place] [address] Apr, [facility] [address] [id number] [place] [address] Mar, [facility] [address] [id number] [place] [address] Mar, [facility] [address] [id number] [place] [address] February, [facility] [address] [id number] [place] [address] February, [facility] [address] [id number] [place] [address] February, [facility] [address] [id number] [facility] [place] [address] February, [facility] [address] [id number] [place] [address] Jan, [facility] [address] [id number] [place] [address] Jan, [facility] [address] [facility] [id number] [facility] [place] [address] Jan, [facility] [address] [id number] [place] [address] Dec, [facility] [address] [id number] [place] [address] Dec, [facility] [address] [id number] [place] [address] Dec, [facility] [address] [id number] [place] [address] Dec, [facility] [address] [id number] [place] [address] Nov, [facility] [address] [id number] [place] [address] Nov, [facility] [address] [id number] [place] [address] Oct, [facility] [address] [id number] [place] [address] Oct, [facility] [address] [id number] [place] [address] Oct, [facility] [address] [id number] [place] [address] Oct, [facility] [address] [id number] [place] [address] Aug, [facility] [address] [id number] [place] [address] Aug, [facility] [address] [id number] [place] [address] Jun, [facility] [address] [id number] [place] [address] May, [facility] [address] [id number] [place] [address] May, [facility] [address] [id number] [place] [address] Apr, [facility] [address] [id number] [place] [address] Apr, [facility] [address] [id number] [place] [address] Apr, [facility] [address] [facility] [id number] [place] [address] Mar, [facility] [address] [facility] [id number] [place] [address] Mar, [facility] [address] [facility] [id number] [place] [address] Mar, [facility] [address] [facility] [id number] [place] [address] Mar, [facility] [address] [facility] [id number] [place] [address] Mar, [facility] [address] [facility] [id number] [place] [address] February, [facility] [address] [facility] [id number] [place] [address] February, [facility] [address] [facility] [id number] [place] [address] February, [facility] [address] [facility] [id number] [place] [address] February, [facility] [address] [id number] [place] [address] February, [facility] [address] [facility] [id number] [place] [address] February, [facility] [address] [facility] [id number] [place] [address] February, [facility] [address] [id number] [place] [address] Jan, [facility] [address] [id number] [place] [address] 18 Jan, 2012 [facility] [address] [facility] [id number] [place] [address] 17 Jan, 2012 [facility] [address] [id number] [place] [address] 13 Jan, 2012 [facility] [address] [id number] [place] [address] 10 Jan, 2012 [facility] [address] [facility] [id number] [place] [address] 04 Jan, 2012 [facility] [address] [facility] [id number] [place] [address] 30 Dec, 2011 [facility] [address] [facility] [id number] [place] [address] 24 Dec, 2011 [facility] [address] [id number] [place] [address] Dec, [facility] [address] [facility] [id number] [place] [address] Dec, [facility] [address] [facility] [id number] [place] [address] Dec, [facility] [address] [facility] [id number] [place] [address] Nov, [facility] [address] [facility] [id number] [place] [address] Nov, [facility] [address] [facility] [id number] [place] [address] Nov, [facility] [address] [facility] [id number] [place] [address] 14 Nov, 2011 [facility] [address] [facility] [id number] [place] [address] Nov, [facility] [address] [facility] [id number] [place] [address] Nov, [facility] [address] [facility] [id number] [place] [address] Oct, [facility] [address] [facility] [id number] [place] [address] Oct, [facility] [address] [facility] [id number] [place] [address] Oct, [facility] [address] [facility] [id number] [place] [address] Oct, [facility] [address] [facility] [id number] [place] [address] Oct, [facility] [address] [facility] [id number] [place] [address] Sep, [facility] [address] [facility] [id number] [place] [address] Sep, [facility] [address] [facility] [id number] [place] [address] Sep, [facility] [address] [facility] [id number] [place] [address] Sep, [facility] [address] [facility] [id number] [place] [address] 14 Sep, 2011 [facility] [address] [facility] [id number] [place] [address] Sep, [facility] [address] [facility] [id number] [place] [address] 12 Sep, 2011 [facility] [address] [facility] [id number] [place] [address] Sep, [facility] [address] [facility] [id number] [place] [address] 05 Sep, 2011 [facility] [address] [facility] [id number] [place] [address] Aug, [facility] [address] [facility] [id number] [place] [address] Aug, [facility] [address] [facility] [id number] [place] [address] Aug, [facility] [id number] [place] [address] Aug, [facility] [address] [facility] [id number] [place] [address] Aug, [facility] [address] [facility] [id number] [place] [address] Aug, [facility] [address] [facility] [id number] [place] [address] Aug, [facility] [id number] [place] [address] Aug, [facility] [address] [facility] [id number] [place] [address] Aug, [facility] [address] [facility] [id number] [place] [address] Aug, [facility] [address] [facility] [id number] [place] [address] Aug, [facility] [address] [facility] [id number] [place] [address] Aug, [facility] [address] [facility] [id number] [place] [address] Jul, [facility] [address] [facility] [id number] [place] [address] Jul, [facility] [id number] [place] [address] Jul, [facility] [address] [facility] [id number] [place] [address] Jul, [facility] [address] [id number] [place] [address] Jul, [facility] [id number] [place] [address] Jul, [facility] [id number] [place] [address] Jul, [facility] [id number] [place] [address] Jul, [facility] [address] [address] Jul, [facility] [id number] [place] [address] Jul, [facility] [address] [address] Nov, [facility] [address] [address] Aug, [facility] [address] [address] Aug, [facility] [id number] [place] [address] Aug, [facility] [address] [address] Aug, [facility] [id number] [place] [address] Jul, IMMUNIZATIONS No Known Immunizations SOCIAL HISTORY [...] Suicide attempt by hanging 2015 Hospitalization History [facility] 01/30/2018-02/10/20 08 [facility]ization History [facility] 05/04/18- [facility] History [facility]
--- OUTSIDE RECORDS SUMMARY | 2020-04-04 01:45 | XMS REPORT ---
Author Author Kaila Onofre Doctor Organization [facility] Address Unknown Phone Unavailable Care Team Providers Care Ticket Scheduler Name Role Phone Migration, Doctor Unavailable Unavailable PROBLEMS Type Condition ICD9-CM Code [id number] Code Onset Dates Condition S tatus SNOMED Code Problem Paranoid schizophrenia F20.0 Active 78245202 Problem Borderline personality disorder F60.3 Active 35082674 Problem Schizoaffective disorder, depressive type F25.1 Active 78041600 Problem Schizoaffective disorder, unspecified F25.9 Active 57702839 Problem Attention deficit hyperactivity disorder (ADHD), inattentive type, 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 59283694 Problem Posttraumatic stress disorder F43.10 Active 07803644 Problem High risk medication use Z79.899 Activ e [id number] ALLERGIES No Information ENCOUNTERS Encounter Location Date Diagnosis [place] [address] [address] Dec, [place] [address] [address] Nov, Paranoid schizophrenia F20.0 ; Attention deficit hyperactivity disorder (ADHD), inattentive type, 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 ; Posttraumatic stress disorder F43.10 and Borderline personality disorder F60.3 [place] [address] [address] Nov, [place] [address] [address] Oct, Paranoid schizophrenia F20.0 ; Attention deficit hyperactivity disorder (ADHD), inattentive type, 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 ; Posttraumatic stress disorder F43.10 and Borderline personality disorder F60.3 [place] [address] [address] Oct, [facility] [address] [address] Sep, Paranoid schizophrenia F20.0 ; Attention deficit hyperactivity disorder (ADHD), inattentive type, 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 ; Posttraumatic stress disorder F43.10 and Borderline personality disorder F60.3 [facility] [address] [address] Aug, Paranoid schizophrenia F20.0 ; Attention deficit hyperactivity disorder (ADHD), inattentive type, 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 ; Posttraumatic stress disorder F43.10 and Borderline personality disorder F60.3 [facility] [address] [address] Aug, [facility] [address] [facility] [id number] [address] [place] [address] Aug, Acute bronchitis, unspecifie d organism J20.9 [facility] [address] [address] Aug, [facility] [address] [address] Aug, [facility] [address] [address] Jul, Paranoid schizophrenia F20.0 ; Attention deficit hyperactivity disorder (ADHD), inattentive type, 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 ; Posttraumatic stress disorder F43.10 and Borderline personality disorder F60.3 [facility] [address] [address] Jul, [facility] [address] [address] Jun, Paranoid schizophrenia F20.0 ; Other katherin g term (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 Z79.899 ; Attention deficit hyperactivity disorder (ADHD), inattentive type, 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 ; Posttraumatic stress disorder F43.10 and Borderline personality disorder F60.3 [facility] [address] [address] Jun, Paranoid schizophrenia F20.0 ; Attention deficit hyperactivity disorder (ADHD), inattentive type, 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 ; Posttraumatic stress disorder F43.10 ; Borderline personality disorder F60.3 and 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 Z79.899 [place] [address] [address] Apr, Paranoid schizophrenia F20.0 ; Posttraum atic stress disorder F43.10 ; Attention deficit hyperactivity disorder (ADHD), inattentive type, 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 and Borderline personality disorder F60.3 [place] [address] [address] Apr, Paranoid schizophrenia F20.0 [place] [address] [address] Apr, Paranoid schizophrenia F20.0 ; Posttraum atic stress disorder F43.10 ; Attention deficit hyperactivity disorder (ADHD), inattentive type, 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 and Borderline personality disorder F60.3 [place] [address] [address] Mar, Paranoid schizophrenia F20.0 [place] [address] [address] Mar, Paranoid schizophrenia F20.0 ; Posttraum atic stress disorder F43.10 ; Attention deficit hyperactivity disorder (ADHD), inattentive type, 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 and Borderline personality disorder F60.3 [place] [address] [address] February, Paranoid schizophrenia F20.0 [place] [address] [address] Jan, Paranoid schizophrenia F20.0 ; Posttraum atic stress disorder F43.10 ; Attention deficit hyperactivity disorder (ADHD), inattentive type, 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 and Borderline personality disorder F60.3 [facility] [address] [address] Dec, Paranoid schizophrenia F20.0 ; Posttraum atic stress disorder F43.10 ; Attention deficit hyperactivity disorder (ADHD), inattentive type, 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 and Borderline personality disorder F60.3 [facility] [address] [address] Dec, Paranoid schizophrenia F20.0 ; Posttraum atic stress disorder F43.10 ; Attention deficit hyperactivity disorder (ADHD), inattentive type, 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 and Borderline personality disorder F60.3 [facility] [address] [address] Oct, Paranoid schizophrenia F20.0 ; Posttraum atic stress disorder F43.10 ; Attention deficit hyperactivity disorder (ADHD), inattentive type, 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 and Borderline personality disorder F60.3 [facility] [address] [address] Oct, Paranoid schizophrenia F20.0 ; Posttraum atic stress disorder F43.10 ; Attention deficit hyperactivity disorder (ADHD), inattentive type, 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 and Borderline personality disorder F60.3 [facility] [address] [address] Aug, [facility] [address] [address] Aug, Paranoid schizophrenia F20.0 ; Posttraum atic stress disorder F43.10 ; Attention deficit hyperactivity disorder (ADHD), inattentive type, 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 and Borderline personality disorder F60.3 [facility] [address] [facility] [id number] [address] [place] [address] Jul, Dry skin dermatitis L85.3 [facility] [address] [id number] [place] [address] Jul, [facility] [address] [address] Jul, Paranoid schizophrenia F20.0 [facility] [address] [place] [id number] [place] [address] May, Paranoid schizophrenia F20.0 ; Posttraum atic stress disorder F43.10 ; Attention deficit hyperactivity disorder (ADHD), inattentive type, 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 and Borderline personality disorder F60.3 [facility] [address] [id number] [place] [address] May, [facility] [address] [id number] [place] [address] May, Paranoid schizophrenia F20.0 [facility] [address] [place] [id number] [place] [address] May, Paranoid schizophrenia F20.0 ; Posttraum atic stress disorder F43.10 ; Attention deficit hyperactivity disorder (ADHD), inattentive type, 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 and Borderline personality disorder F60.3 [facility] [address] [place] [id number] [place] [address] Apr, [facility] [address] [place] [id number] [place] [address] Apr, Paranoid schizophrenia F20.0 ; Posttraum atic stress disorder F43.10 ; Attention deficit hyperactivity disorder (ADHD), inattentive type, 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 and Borderline personality disorder F60.3 [facility] [address] [place] [id number] [place] [address] Apr, [facility] [address] [address] Apr, Schizoaffective disorder, depressive typ e F25.1 and Borderline personality disorder F60.3 [facility] [address] [place] [id number] [place] [address] Apr, Paranoid schizophrenia F20.0 ; Posttraum atic stress disorder F43.10 ; Attention deficit hyperactivity disorder (ADHD), inattentive type, 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 and Borderline personality disorder F60.3 [facility] [address] [place] [id number] [place] [address] Apr, [facility] [address] [place] [id number] [place] [address] Apr, Paranoid schizophrenia F20.0 ; Posttraum atic stress disorder F43.10 ; Attention deficit hyperactivity disorder (ADHD), inattentive type, 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 and Borderline personality disorder F60.3 [facility] [address] [address] Apr, [facility] [address] [address] Mar, Paranoid schizophrenia F20.0 [facility] [address] [address] Mar, [facility] [address] [address] Mar, Paranoid schizophrenia F20.0 ; Posttraum atic stress disorder F43.10 ; Attention deficit hyperactivity disorder (ADHD), inattentive type, 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 and Borderline personality disorder F60.3 [facility] [address] [address] February, Paranoid schizophrenia F20.0 [facility] [address] [address] February, Paranoid schizophrenia F20.0 ; Posttraum atic stress disorder F43.10 ; Attention deficit hyperactivity disorder (ADHD), inattentive type, 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 and Borderline personality disorder F60.3 [facility] [address] [address] February, Paranoid schizophrenia F20.0 ; Posttraum atic stress disorder F43.10 ; Attention deficit hyperactivity disorder (ADHD), inattentive type, 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 and Borderline personality disorder F60.3 [facility] [address] [address] February, [facility] [address] [address] February, Paranoid schizophrenia F20.0 [facility] [address] [address] February, Paranoid schizophrenia F20.0 [facility] [address] [address] February, Paranoid schizophrenia F20.0 ; Posttraum atic stress disorder F43.10 ; Attention deficit hyperactivity disorder (ADHD), inattentive type, 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 and Borderline personality disorder F60.3 [facility] [address] [place] [id number] [place] [address] Jan, Paranoid schizophrenia F20.0 ; Posttraum atic stress disorder F43.10 ; Attention deficit hyperactivity disorder (ADHD), inattentive type, 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 and Borderline personality disorder F60.3 [facility] [address] [address] Jan, Paranoid schizophrenia F20.0 [facility] [address] [address] Jan, Paranoid schizophrenia F20.0 [facility] [address] [address] Jan, Paranoid schizophrenia F20.0 ; Posttraum atic stress disorder F43.10 ; Attention deficit hyperactivity disorder (ADHD), inattentive type, 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0 ; Posttraum atic stress disorder F43.10 ; Attention deficit hyperactivity disorder (ADHD), inattentive type, 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 ; Borderline personality disorder F60.3 and Other skilled nursing (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 Z79.899 [facility] [address] [address] Oct, [facility] [address] [address] Oct, [facility] [address] [address] Sep, [facility] [address] [address] Sep, Paranoid schizophrenia F20.0 ; Posttraum atic stress disorder F43.10 ; Attention deficit hyperactivity disorder (ADHD), inattentive type, 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 and Borderline personality disorder F60.3 [facility] [address] [address] Sep, Paranoid schizophrenia F20.0 [facility] [address] [address] Aug, Paranoid schizophrenia F20.0 ; Posttraum atic stress disorder F43.10 ; Attention deficit hyperactivity disorder (ADHD), inattentive type, 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 and Borderline personality disorder F60.3 [facility] [address] [address] Aug, Paranoid schizophrenia F20.0 ; Posttraum atic stress disorder F43.10 ; Attention deficit hyperactivity disorder (ADHD), inattentive type, 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 and Borderline personality disorder F60.3 [facility] [address] [address] Aug, [facility] [address] [place] [id number] Jul, Paranoid schizophrenia F20.0 ; Posttraum atic stress disorder F43.10 ; Attention deficit hyperactivity disorder (ADHD), inattentive type, 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 and Borderline personality disorder F60.3 [facility] [address] [address] Jul, Paranoid schizophrenia F20.0 [facility] [address] [address] Jul, Paranoid schizophrenia F20.0 ; Posttraum atic stress disorder F43.10 ; Attention deficit hyperactivity disorder (ADHD), inattentive type, 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 and Borderline personality disorder F60.3 [facility] [address] [address] Jun, Paranoid schizophrenia F20.0 ; Posttraum atic stress disorder F43.10 ; Attention deficit hyperactivity disorder (ADHD), inattentive type, 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 and Borderline personality disorder F60.3 [facility] [address] [address] May, Other skilled nursing (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 Z 79.899 [facility] [address] [address] May, [facility] [address] [address] May, [facility] [address] [address] May, Attention deficit hyperactivity disorder (ADHD), inattentive type, 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 [facility] [address] [address] May, [facility] [address] [address] May, Attention deficit hyperactivity disorder (ADHD), inattentive type, 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 [facility] [address] [address] May, Paranoid schizophrenia F20.0 ; Posttraum atic stress disorder F43.10 ; Attention deficit hyperactivity disorder (ADHD), inattentive type, 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 and Other skilled nursing (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 Z79.899 [facility] [address] [address] Apr, Paranoid schizophrenia F20.0 [facility] [address] [address] Apr, Paranoid schizophrenia F20.0 ; Posttraum atic stress disorder F43.10 and Attention deficit hyperactivity disorder (ADHD), inattentive type, 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 [facility] [address] [address] February, [facility] [address] [address] February, Paranoid schizophrenia F20.0 ; Posttraum atic stress disorder F43.10 and Attention deficit hyperactivity disorder (ADHD), inattentive type, 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 [facility] [address] [address] February, Paranoid schizophrenia F20.0 ; Posttraum atic stress disorder F43.10 and Attention deficit hyperactivity disorder (ADHD), inattentive type, 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 [facility] [address] [address] Jan, Paranoid schizophrenia F20.0 ; Posttraum atic stress disorder F43.10 and Attention deficit hyperactivity disorder (ADHD), inattentive type, 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 [facility] [address] [id number] Dec, Dental examination Z01.20 [facility] [address] [id number] Nov, Dental examination Z01.20 [facility] [address] [id number] Nov, Dental examination Z01.20 [facility] [address] [id number] Nov, Dental caries K02.9 [facility] [address] [address] 13 Nov, 2016 High risk medication use Z79.899 [facility] [address] [address] Nov, Paranoid schizophrenia F20.0 ; Posttraum atic stress disorder F43.10 ; Attention deficit hyperactivity disorder (ADHD), inattentive type, 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 and Borderline personality disorder in adult F60.3 [facility] [address] [place] [id number] [place] [id number] Oct, Dental caries K02.9 [facility] [address] [address] Sep, Paranoid schizophrenia F20.0 ; Posttraum atic stress disorder F43.10 and Attention deficit hyperactivity disorder (ADHD), inattentive type, 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 [facility] [address] [address] Aug, Paranoid schizophrenia F20.0 ; Posttraum atic stress disorder F43.10 and Attention deficit hyperactivity disorder (ADHD), inattentive type, 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 [facility] [address] [facility] [id number] [address] [place] [address] Aug, Strep throat J02.0 and Cough R05 [facility] [address] [address] Aug, [facility] [address] [address] Jul, Paranoid schizophrenia F20.0 ; Posttraum atic stress disorder F43.10 and Attention deficit hyperactivity disorder (ADHD), inattentive type, 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 [facility] [address] [address] Jul, [facility] [address] [address] Jun, Paranoid schizophrenia F20.0 ; Posttraum atic stress disorder F43.10 and Attention deficit hyperactivity disorder (ADHD), inattentive type, 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 [facility] [address] [id number] Sep, 2016 Dental examination Z01.20 [facility] [address] [address] Jun, [facility] [address] [address] May, Paranoid schizophrenia F20.0 [facility] [address] [address] May, Paranoid schizophrenia F20.0 ; Posttraum atic stress disorder F43.10 and Attention deficit hyperactivity disorder (ADHD), inattentive type, 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 [facility] [address] [address] May, [facility] [address] [address] May, Paranoid schizophrenia F20.0 [facility] [address] [address] May, [facility] [address] [address] May, Paranoid schizophrenia F20.0 [facility] [address] [address] May, Schizoaffective disorder, unspecified F2 5.9 [facility] [address] [address] May, Schizoaffective disorder, unspecified F2 5.9 [facility] [address] [address] May, [facility] [address] [address] May, Paranoid schizophrenia F20.0 [facility] [address] [address] May, Paranoid schizophrenia F20.0 ; Posttraum atic stress disorder F43.10 and Attention deficit hyperactivity disorder (ADHD), inattentive type, 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 [facility] [address] [address] Mar, [facility] [address] [address] Mar, Paranoid schizophrenia F20.0 ; Posttraum atic stress disorder F43.10 and Attention deficit hyperactivity disorder (ADHD), inattentive type, 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 [facility] [address] [address] Mar, Paranoid schizophrenia F20.0 [facility] [address] [address] Mar, Paranoid schizophrenia F20.0 ; Attention deficit hyperactivity disorder (ADHD), inattentive type, 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 and Posttraumatic stress disorder F43.10 [facility] [address] [address] Mar, [facility] [address] [address] Mar, Paranoid schizophrenia F20.0 ; Posttraum atic stress disorder F43.10 and Attention deficit hyperactivity disorder (ADHD), inattentive type, 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 [facility] [address] [address] February, [facility] [address] [address] February, [facility] [address] [address] February, [facility] [address] [address] February, [facility] [address] [address] Jan, Paranoid schizophrenia F20.0 [facility] [address] [id number] Jan, Dental examination Z01.20 [facility] [address] [id number] Jan, Dental caries K02.9 [facility] [address] [id number] Jan, Dental examination Z01.20 [facility] [address] [id number] Dec, Encounter for dental examination Z01.20 [facility] [address] [address] Dec, Paranoid schizophrenia F20.0 [facility] [address] [id number] Dec, Dental examination Z01.20 [facility] [address] [address] Dec, [facility] [address] [address] Dec, Paranoid schizophrenia F20.0 ; Posttraum atic stress disorder F43.10 and Attention deficit hyperactivity disorder (ADHD), inattentive type, 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 [facility] [address] [address] Nov, Schizoaffective disorder, unspecified F2 5.9 [facility] [address] [address] Oct, Paranoid schizophrenia F20.0 [facility] [address] [address] Oct, [facility] [address] [address] Sep, Paranoid schizophrenia F20.0 ; Posttraum atic stress disorder F43.10 and Attention deficit hyperactivity disorder (ADHD), inattentive type, 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 [facility] [address] [address] Sep, [facility] [address] [address] Sep, Paranoid schizophrenia F20.0 ; Posttraum atic stress disorder F43.10 and Attention deficit hyperactivity disorder (ADHD), inattentive type, 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 [facility] [address] [address] Aug, Paranoid schizophrenia F20.0 [facility] [address] [address] Aug, [facility] [address] [address] Aug, Posttraumatic stress disorder F43.10 ; P aranoid schizophrenia F20.0 and Attention deficit hyperactivity disorder (ADHD), inattentive type, 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 [facility] [address] [address] Jul, Bipolar disorder, unspecified F31.9 [facility] [address] [address] Jul, [facility] [address] [address] Jun, [facility] [address] [address] Jun, Schizoaffective disorder, chronic 295.72 ; Posttraumatic stress disorder 309.81 and Attention deficit disorder of childhood without mention of hyperactivity 314.00 [facility] [address] [address] May, [facility] [address] [address] May, [facility] [address] [address] May, Schizoaffective disorder, chronic 295.72 ; Posttraumatic stress disorder 309.81 ; Attention deficit disorder of childhood without mention of hyperactivity 314.00 and Bipolar disorder, unspecified 296.80 [facility] [address] [address] Apr, Schizoaffective disorder, chronic 295.72 [facility] [address] [address] Apr, [facility] [address] [place] [id number] [place] [address] Apr, Schizoaffective disorder, chronic 295.72 ; Posttraumatic stress disorder 309.81 and Attention deficit disorder of childhood without mention of hyperactivity 314.00 [facility] [address] [place] [id number] [place] [address] Mar, Disorganized schizophrenia, 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 [facility] [address] [address] Mar, [facility] [address] [address] Mar, [facility] [address] [address] Mar, [facility] [address] [address] Mar, [facility] [address] [place] [id number] [place] [address] February, Schizoaffective disorder, chronic 295.72 [facility] [address] [address] February, [facility] [address] [address] February, Attention deficit disorder of childhood without mention of hyperactivity 314.00 ; Posttraumatic stress disorder 309.81 and Schizoaffective disorder, chronic 295.72 [facility] [id number] [place] [address] Jan, [facility] [id number] [place] [address] Jan, [facility] [address] [address] Jan, [facility] [id number] [place] [address] Dec, [facility] [id number] [place] [address] Dec, [facility] [place] [facility] [address] [id number] [place] [address] Dec, [facility] [place] [facility] [address] [id number] [place] [address] Dec, [facility] [place] [facility] [address] [id number] [place] [address] Dec, 2014 [facility] [place] [facility] [address] [id number] [place] [address] Dec, 2014 [facility] [place] [facility] [address] [id number] [place] [address] Dec, [facility] [place] [facility] [address] [id number] [place] [address] Dec, 2014 [facility] [place] [facility] [address] [id number] [place] [address] Nov, 2014 [facility] [place] [facility] [address] [id number] [place] [address] Nov, 2014 [facility] [place] [facility] [address] [id number] [place] [address] Nov, 2014 [facility] [place] [facility] [address] [id number] [place] [address] Nov, 2014 [facility] [place] [facility] [address] [id number] [place] [address] Nov, 2014 [facility] [place] [facility] [address] [id number] [place] [address] Nov, 2014 [facility] [place] [facility] [address] [id number] [place] [address] Nov, 2014 [facility] [place] [facility] [address] [id number] [place] [address] Nov, 2014 [facility] [place] [facility] [address] [id number] [place] [address] Nov, 2014 [facility] [place] [facility] [address] [id number] [place] [address] Nov, 2014 [facility] [place] [facility] [address] [id number] [place] [address] 29 Oct, 2014 [facility] [place] [facility] [address] [id number] [place] [address] 29 Oct, 2014 [facility] [place] [facility] [address] [id number] [place] [address] Oct, [facility] [place] [facility] [address] [id number] [place] [address] 15 Oct, 2014 [facility] [place] [facility] [address] [id number] [place] [address] 15 Oct, 2014 [facility] [place] [facility] [address] [id number] [place] [address] Oct, [facility] [place] [facility] [address] [id number] [place] [address] Oct, [facility] [place] [facility] [address] [id number] [place] [address] 17 Sep, 2014 [facility] [place] [facility] [address] [id number] [place] [address] 17 Sep, 2014 [facility] [place] [facility] [address] [id number] [place] [address] 15 Sep, 2014 [facility] [place] [facility] [address] [id number] [place] [address] 15 Sep, 2014 [facility] [place] [facility] [address] [id number] [place] [address] 20 Aug, 2014 [facility] [place] [facility] [address] [id number] [place] [address] 20 Aug, 2014 [facility] [place] [facility] [address] [id number] [place] [address] 14 Aug, 2014 [facility] [place] [facility] [address] [id number] [place] [address] 14 Aug, 2014 [facility] [place] [facility] [address] [id number] [place] [address] 14 Aug, 2014 [facility] [place] [facility] [address] [id number] [place] [address] Aug, [facility] [place] [facility] [address] [id number] [place] [address] 29 Jul, 2014 [facility] [place] [facility] [address] [id number] [place] [address] 29 Jul, 2014 [facility] [place] [facility] [address] [id number] [place] [address] Jul, [facility] [place] [facility] [address] [id number] [place] [address] 24 Jul, 2014 [facility] [place] [facility] [address] [id number] [place] [address] 15 Jul, 2014 [facility] [place] [facility] [address] [id number] [place] [address] 15 Jul, 2014 [facility] [place] [facility] [address] [id number] [place] [address] 27 Jun, 2013 [facility] [place] [facility] [address] [id number] [place] [address] 27 Sep, 2013 [facility] [place] [facility] [address] [id number] [place] [address] 26 Sep, 2013 [facility] [place] [facility] [address] [id number] [place] [address] 26 Sep, 2013 [facility] [place] [facility] [address] [id number] [place] [address] 26 Sep, 2013 [facility] [place] [facility] [address] [id number] [place] [address] 26 Sep, 2013 [facility] [place] [facility] [address] [id number] [place] [address] 16 Sep, 2013 [facility] [place] [facility] [address] [id number] [place] [address] 16 Sep, 2013 [facility] [place] [facility] [address] [id number] [place] [address] 16 Sep, 2013 [facility] [place] [facility] [address] [id number] [place] [address] 16 Sep, 2013 [facility] [place] [facility] [address] [id number] [place] [address] Jun, [facility] [place] [facility] [address] [id number] [place] [address] May, [facility] [place] [facility] [address] [facility] [id number] [place] [address] May, [facility] [place] [facility] [address] [facility] [id number] [place] [address] May, [facility] [place] [facility] [address] [facility] [id number] [place] [address] May, [facility] [place] [facility] [address] [facility] [id number] [place] [address] May, [facility] [place] [facility] [address] [facility] [id number] [place] [address] May, [facility] [place] [facility] [address] [id number] [place] [address] May, [facility] [place] [facility] [address] [id number] [place] [address] May, [facility] [place] [facility] [address] [facility] [id number] [place] [address] May, [facility] [place] [facility] [address] [facility] [id number] [place] [address] May, [facility] [place] [facility] [address] [facility] [id number] [place] [address] Apr, [facility] [place] [facility] [address] [id number] [place] [address] Apr, [facility] [place] [facility] [address] [facility] [id number] [place] [address] Apr, [facility] [place] [facility] [address] [id number] [place] [address] Apr, [facility] [place] [facility] [address] [facility] [id number] [place] [address] Apr, [facility] [place] [facility] [address] [id number] [place] [address] Apr, [facility] [place] [facility] [address] [facility] [id number] [place] [address] 17 Apr, 2014 [facility] [place] [facility] [address] [facility] [id number] [place] [address] 15 Apr, 2014 [facility] [place] [facility] [address] [facility] [id number] [place] [address] 15 Apr, 2014 [facility] [place] [facility] [address] [facility] [id number] [place] [address] Apr, [facility] [place] [facility] [address] [facility] [id number] [place] [address] Mar, [facility] [place] [facility] [address] [facility] [id number] [place] [address] Mar, [facility] [place] [facility] [address] [id number] [place] [address] 25 Mar, 2014 [facility] [place] [facility] [address] [id number] [place] [address] 24 Mar, 2014 [facility] [place] [facility] [address] [id number] [place] [address] 20 Mar, 2014 [facility] [place] [facility] [address] [facility] [id number] [place] [address] 18 Mar, 2014 [facility] [place] [facility] [address] [id number] [place] [address] 18 Mar, 2014 [facility] [place] [facility] [address] [id number] [place] [address] 16 Mar, 2014 [facility] [place] [facility] [address] [facility] [id number] [place] [address] 16 Mar, 2014 [facility] [place] [facility] [address] [facility] [id number] [place] [address] 13 Mar, 2014 [facility] [place] [facility] [address] [id number] [place] [address] 13 Mar, 2014 [facility] [place] [facility] [address] [facility] [id number] [place] [address] 11 Mar, 2014 [facility] [place] [facility] [address] [id number] [place] [address] Mar, [facility] [place] [facility] [address] [id number] [place] [address] Mar, [facility] [place] [facility] [address] [id number] [place] [address] Mar, [facility] [place] [facility] [address] [id number] [place] [address] Mar, [facility] [place] [facility] [address] [id number] [place] [address] Mar, [facility] [place] [facility] [address] [facility] [id number] [place] [address] Mar, [facility] [place] [facility] [address] [id number] [place] [address] Mar, [facility] [place] [facility] [address] [id number] [place] [address] Mar, [facility] [place] [facility] [address] [id number] [place] [address] February, [facility] [place] [facility] [address] [id number] [place] [address] February, [facility] [place] [facility] [address] [id number] [place] [address] February, [facility] [place] [facility] [address] [id number] [place] [address] February, [facility] [place] [facility] [address] [id number] [place] [address] February, [facility] [place] [facility] [address] [id number] [place] [address] February, [facility] [place] [facility] [address] [id number] [place] [address] February, [facility] [place] [facility] [address] [id number] [place] [address] February, [facility] [place] [facility] [address] [id number] [place] [address] February, [facility] [place] [facility] [address] [id number] [place] [address] February, [facility] [place] [facility] [address] [facility] [id number] [place] [address] February, [facility] [place] [facility] [address] [facility] [id number] [place] [address] February, [facility] [place] [facility] [address] [id number] [place] [address] February, [facility] [place] [facility] [address] [id number] [place] [address] February, [facility] [place] [facility] [address] [facility] [id number] [place] [address] February, [facility] [place] [facility] [address] [id number] [place] [address] February, [facility] [place] [facility] [address] [id number] [place] [address] February, [facility] [place] [facility] [address] [id number] [place] [address] February, [facility] [place] [facility] [address] [id number] [place] [address] February, [facility] [place] [facility] [address] [id number] [place] [address] February, [facility] [place] [facility] [address] [id number] [place] [address] February, [facility] [place] [facility] [address] [id number] [place] [address] Jan, [facility] [place] [facility] [address] [facility] [id number] [place] [address] Jan, [facility] [place] [facility] [address] [id number] [place] [address] Jan, [facility] [place] [facility] [address] [id number] [place] [address] Jan, [facility] [place] [facility] [address] [id number] [place] [address] Jan, [facility] [place] [facility] [address] [facility] [id number] [place] [address] 18 Jan, 2014 [facility] [place] [facility] [address] [facility] [id number] [place] [address] 10 Jan, 2014 [facility] [place] [facility] [address] [id number] [place] [address] 10 Jan, 2014 [facility] [place] [facility] [address] [id number] [place] [address] 21 Dec, 2013 [facility] [place] [facility] [address] [id number] [place] [address] 20 Dec, 2013 [facility] [place] [facility] [address] [id number] [place] [address] 20 Dec, 2013 [facility] [place] [facility] [address] [id number] [place] [address] 19 Dec, 2013 [facility] [place] [facility] [address] [id number] [place] [address] 19 Dec, 2013 [facility] [place] [facility] [address] [id number] [place] [address] 15 Dec, 2013 [facility] [place] [facility] [address] [id number] [place] [address] 15 Dec, 2013 [facility] [place] [facility] [address] [id number] [place] [address] 11 Dec, 2013 [facility] [place] [facility] [address] [id number] [place] [address] 10 Dec, 2013 [facility] [place] [facility] [address] [id number] [place] [address] 10 Dec, 2013 [facility] [place] [facility] [address] [facility] [id number] [place] [address] 18 Nov, 2013 [facility] [place] [facility] [address] [id number] [place] [address] 17 Nov, 2013 [facility] [place] [facility] [address] [id number] [place] [address] 17 Nov, 2013 [facility] [place] [facility] [address] [id number] [place] [address] Nov, [facility] [place] [facility] [address] [id number] [place] [address] Nov, [facility] [place] [facility] [address] [id number] [place] [address] Oct, [facility] [place] [facility] [address] [id number] [place] [address] Oct, [facility] [place] [facility] [address] [id number] [place] [address] Oct, [facility] [place] [facility] [address] [id number] [place] [address] Sep, [facility] [place] [facility] [address] [id number] [place] [address] Sep, [facility] [place] [facility] [address] [id number] [place] [address] Sep, [facility] [place] [facility] [address] [id number] [place] [address] Sep, [facility] [place] [facility] [address] [id number] [place] [address] Aug, [facility] [place] [facility] [address] [id number] [place] [address] Aug, [facility] [place] [facility] [address] [id number] [place] [address] Jul, [facility] [place] [facility] [address] [id number] [place] [address] Jul, [facility] [place] [facility] [address] [id number] [place] [address] Jul, [facility] [place] [facility] [address] [id number] [place] [address] Jul, [facility] [place] [facility] [address] [id number] [place] [address] Jul, [facility] [place] [facility] [address] [id number] [place] [address] Jun, [facility] [place] [facility] [address] [id number] [place] [address] 25 Jun, 2013 [facility] [place] [facility] [address] [id number] [place] [address] 19 Jun, 2013 [facility] [place] [facility] [address] [id number] [place] [address] 18 Jun, 2013 [facility] [place] [facility] [address] [id number] [place] [address] 16 Jun, 2013 [facility] [place] [facility] [address] [id number] [place] [address] 12 Jun, 2013 [facility] [place] [facility] [address] [id number] [place] [address] 11 Jun, 2013 [facility] [place] [facility] [address] [id number] [place] [address] May, [facility] [place] [facility] [address] [id number] [place] [address] May, [facility] [place] [facility] [address] [id number] [place] [address] Apr, [facility] [place] [facility] [address] [id number] [place] [address] Apr, [facility] [place] [facility] [address] [id number] [place] [address] Apr, [facility] [place] [facility] [address] [id number] [place] [address] Mar, [facility] [place] [facility] [address] [id number] [place] [address] Mar, [facility] [place] [facility] [address] [id number] [place] [address] February, [facility] [place] [facility] [address] [id number] [place] [address] February, [facility] [place] [facility] [address] [id number] [place] [address] February, [facility] [place] [facility] [address] [id number] [place] [address] February, [facility] [place] [facility] [address] [id number] [place] [address] Jan, [facility] [place] [facility] [address] [id number] [place] [address] 17 Jan, 2013 [facility] [place] [facility] [address] [id number] [place] [address] 16 Jan, 2013 [facility] [place] [facility] [address] [id number] [place] [address] 29 Dec, 2012 [facility] [place] [facility] [address] [id number] [place] [address] Dec, [facility] [place] [facility] [address] [id number] [place] [address] Dec, [facility] [place] [facility] [address] [id number] [place] [address] Dec, [facility] [place] [facility] [address] [id number] [place] [address] Nov, [facility] [place] [facility] [address] [id number] [place] [address] Nov, [facility] [place] [facility] [address] [id number] [place] [address] Oct, [facility] [place] [facility] [address] [id number] [place] [address] Oct, [facility] [place] [facility] [address] [id number] [place] [address] Oct, [facility] [place] [facility] [address] [id number] [place] [address] Oct, [facility] [place] [facility] [address] [id number] [place] [address] Aug, [facility] [place] [facility] [address] [id number] [place] [address] Aug, [facility] [place] [facility] [address] [id number] [place] [address] Jun, [facility] [place] [facility] [address] [id number] [place] [address] May, [facility] [place] [facility] [address] [facility] [id number] [place] [address] May, [facility] [place] [facility] [address] [id number] [place] [address] Apr, [facility] [place] [facility] [address] [id number] [place] [address] Apr, [facility] [place] [facility] [address] [id number] [place] [address] Apr, [facility] [place] [facility] [address] [facility] [id number] [place] [address] Mar, [facility] [place] [facility] [address] [id number] [place] [address] Mar, [facility] [place] [facility] [address] [id number] [place] [address] Mar, [facility] [place] [facility] [address] [id number] [place] [address] Mar, [facility] [place] [facility] [address] [id number] [place] [address] Mar, [facility] [place] [facility] [address] [id number] [place] [address] February, [facility] [place] [facility] [address] [id number] [place] [address] February, [facility] [place] [facility] [address] [id number] [place] [address] February, [facility] [place] [facility] [address] [id number] [place] [address] February, [facility] [place] [facility] [address] [id number] [place] [address] February, [facility] [place] [facility] [address] [id number] [place] [address] February, [facility] [place] [facility] [address] [id number] [place] [address] February, [facility] [id number] [place] [address] 25 Jan, 2012 [facility] [address] [facility] [id number] [facility] [place] [address] 18 Jan, 2012 [facility] [id number] [place] [address] 17 Jan, 2012 [facility] [id number] [place] [place] [address] 13 Jan, 2012 [facility] [id number] [place] [address] 10 Jan, 2012 [facility] [id number] [place] [place] [address] 04 Jan, 2012 [facility] [id number] [place] [address] 30 Dec, 2011 [facility] [id number] [place] [address] 24 Dec, 2011 [facility] [id number] [place] [address] 20 Dec, 2011 [facility] [id number] [place] [place] [address] 13 Dec, 2011 [facility] [id number] [place] [address] 06 Dec, 2011 [facility] [id number] [place] [address] 28 Nov, 2011 [facility] [id number] [place] [address] 27 Nov, 2011 [facility] [id number] [place] [address] 25 Nov, 2011 [facility] [id number] [place] [address] 14 Nov, 2011 [facility] [id number] [place] [address] 10 Nov, 2011 [facility] [id number] [place] [address] Nov, [facility] [id number] [place] [address] Oct, [facility] [id number] [place] [address] Oct, [facility] [id number] [place] [address] Oct, [facility] [id number] [place] [address] Oct, [facility] [id number] [place] [address] Oct, [facility] [id number] [place] [address] Sep, [facility] [id number] [place] [address] Sep, [facility] [id number] [place] [address] Sep, [facility] [id number] [place] [address] Sep, [facility] [id number] [place] [address] Sep, [facility] [id number] [place] [address] Sep, [facility] [id number] [place] [address] Sep, [facility] [id number] [place] [address] Sep, [facility] [id number] [place] [address] Sep, [facility] [id number] [place] [address] Aug, [facility] [id number] [place] [address] Aug, [facility] [id number] [place] [address] Aug, [facility] [id number] [place] [address] Aug, [facility] [id number] [place] [address] Aug, [facility] [id number] [place] [address] Aug, [facility] [id number] [place] [address] Aug, [facility] [id number] [place] [address] Aug, [facility] [id number] [place] [address] Aug, [facility] [id number] [place] [address] Aug, [facility] [id number] [place] [address] Aug, [facility] [id number] [place] [address] Aug, [facility] [id number] [place] [address] Jul, [facility] [id number] [place] [address] Jul, [facility] [id number] [place] [address] Jul, [facility] [id number] [place] [address] Jul, [facility] [id number] [place] [address] Jul, [facility] [id number] [place] [address] Jul, [facility] [id number] [place] [address] 18 Jul, 2011 [facility] [id number] [place] [address] Jul, [facility] [id number] [place] [address] Jul, [facility] [id number] [place] [address] Jul, [facility] [id number] [place] [address] Nov, [facility] [id number] [place] [address] Aug, [facility] [address] [address] Aug, [facility] [id number] [place] [address] Aug, [facility] [id number] [place] [address] Aug, [facility] [id number] [place] [address] Jul, IMMUNIZATIONS No Known Immunizations SOCIAL HISTORY [...] Suicide attempt by hanging 2015 Hospitalization History [facility] 01/30/2018-02/10/20 08 Hospitalization History [facility]/SI 05/04/18- Hospitalization History Michelle- [facility] - 5 days
--- OUTSIDE RECORDS SUMMARY | 2020-04-04 01:45 | XMS REPORT ---
Author Author Kaila Onofre Doctor Organization [facility] Address Unknown Phone Unavailable Care Team Providers Care Gis Mapping Technician Name Role Phone Migration, Doctor Unavailable Unavailable PROBLEMS Type Condition ICD9-CM Code [id number] Code Onset Dates Condition S tatus SNOMED Code Problem Paranoid schizophrenia F20.0 Active 65170595 Problem Borderline personality disorder F60.3 Active 27484169 Problem Schizoaffective disorder, depressive type F25.1 Active 14065093 Problem Schizoaffective disorder, unspecified F25.9 Active 72527835 Problem Attention deficit hyperactivity disorder (ADHD), inattentive type, 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 26274908 Problem Posttraumatic stress disorder F43.10 Active 75868853 Problem High risk medication use Z79.899 Activ e [id number] ALLERGIES No Information ENCOUNTERS Encounter Location Date Diagnosis [place] [address] [address] Dec, [place] [address] [address] Nov, Paranoid schizophrenia F20.0 ; Attention deficit hyperactivity disorder (ADHD), inattentive type, 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 ; Posttraumatic stress disorder F43.10 and Borderline personality disorder F60.3 [place] [address] [address] Nov, [place] [address] [address] Oct, Paranoid schizophrenia F20.0 ; Attention deficit hyperactivity disorder (ADHD), inattentive type, 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 ; Posttraumatic stress disorder F43.10 and Borderline personality disorder F60.3 [place] [address] [address] Oct, [facility] [address] [address] Sep, Paranoid schizophrenia F20.0 ; Attention deficit hyperactivity disorder (ADHD), inattentive type, 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 ; Posttraumatic stress disorder F43.10 and Borderline personality disorder F60.3 [facility] [address] [address] Aug, Paranoid schizophrenia F20.0 ; Attention deficit hyperactivity disorder (ADHD), inattentive type, 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 ; Posttraumatic stress disorder F43.10 and Borderline personality disorder F60.3 [facility] [address] [address] Aug, [facility] [address] [facility] [id number] [address] [place] [address] Aug, Acute bronchitis, unspecifie d organism J20.9 [facility] [address] [address] Aug, [facility] [address] [address] Aug, [facility] [address] [address] Jul, Paranoid schizophrenia F20.0 ; Attention deficit hyperactivity disorder (ADHD), inattentive type, 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 ; Posttraumatic stress disorder F43.10 and Borderline personality disorder F60.3 [facility] [address] [address] Jul, [facility] [address] [address] Jun, Paranoid schizophrenia F20.0 ; Other katherin g term (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 Z79.899 ; Attention deficit hyperactivity disorder (ADHD), inattentive type, 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 ; Posttraumatic stress disorder F43.10 and Borderline personality disorder F60.3 [facility] [address] [address] Jun, Paranoid schizophrenia F20.0 ; Attention deficit hyperactivity disorder (ADHD), inattentive type, 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 ; Posttraumatic stress disorder F43.10 ; Borderline personality disorder F60.3 and Other oysterman (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 Z79.899 [place] [id number] [address] Apr, Paranoid schizophrenia F20.0 ; Posttraum atic stress disorder F43.10 ; Attention deficit hyperactivity disorder (ADHD), inattentive type, 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 and Borderline personality disorder F60.3 [place] [id number] [address] Apr, Paranoid schizophrenia F20.0 [place] [address] [address] Apr, Paranoid schizophrenia F20.0 ; Posttraum atic stress disorder F43.10 ; Attention deficit hyperactivity disorder (ADHD), inattentive type, 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 and Borderline personality disorder F60.3 [place] [address] [address] Mar, Paranoid schizophrenia F20.0 [place] [id number] [address] Mar, Paranoid schizophrenia F20.0 ; Posttraum atic stress disorder F43.10 ; Attention deficit hyperactivity disorder (ADHD), inattentive type, 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 and Borderline personality disorder F60.3 [place] [id number] [address] February, Paranoid schizophrenia F20.0 [place] [id number] [address] Jan, Paranoid schizophrenia F20.0 ; Posttraum atic stress disorder F43.10 ; Attention deficit hyperactivity disorder (ADHD), inattentive type, 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 and Borderline personality disorder F60.3 [facility] [address] [address] Dec, Paranoid schizophrenia F20.0 ; Posttraum atic stress disorder F43.10 ; Attention deficit hyperactivity disorder (ADHD), inattentive type, 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 and Borderline personality disorder F60.3 [facility] [address] [address] Dec, Paranoid schizophrenia F20.0 ; Posttraum atic stress disorder F43.10 ; Attention deficit hyperactivity disorder (ADHD), inattentive type, 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 and Borderline personality disorder F60.3 [facility] [address] [address] Oct, Paranoid schizophrenia F20.0 ; Posttraum atic stress disorder F43.10 ; Attention deficit hyperactivity disorder (ADHD), inattentive type, 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 and Borderline personality disorder F60.3 [facility] [address] [address] Oct, Paranoid schizophrenia F20.0 ; Posttraum atic stress disorder F43.10 ; Attention deficit hyperactivity disorder (ADHD), inattentive type, 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 and Borderline personality disorder F60.3 [facility] [address] [address] Aug, [facility] [address] [address] Aug, Paranoid schizophrenia F20.0 ; Posttraum atic stress disorder F43.10 ; Attention deficit hyperactivity disorder (ADHD), inattentive type, 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 and Borderline personality disorder F60.3 [facility] [address] [facility] [id number] [address] [place] [address] Jul, Dry skin dermatitis L85.3 [facility] [address] [id number] [place] [address] Jul, [facility] [address] [address] Jul, Paranoid schizophrenia F20.0 [facility] [address] [place] [id number] [place] [address] May, Paranoid schizophrenia F20.0 ; Posttraum atic stress disorder F43.10 ; Attention deficit hyperactivity disorder (ADHD), inattentive type, 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 and Borderline personality disorder F60.3 [facility] [address] [id number] [place] [address] May, [facility] [address] [id number] [place] [address] May, Paranoid schizophrenia F20.0 [facility] [address] [place] [id number] [place] [address] May, Paranoid schizophrenia F20.0 ; Posttraum atic stress disorder F43.10 ; Attention deficit hyperactivity disorder (ADHD), inattentive type, 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 and Borderline personality disorder F60.3 [facility] [address] [place] [id number] [place] [address] Apr, [facility] [address] [place] [id number] [place] [address] Apr, Paranoid schizophrenia F20.0 ; Posttraum atic stress disorder F43.10 ; Attention deficit hyperactivity disorder (ADHD), inattentive type, 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 and Borderline personality disorder F60.3 [facility] [address] [place] [id number] [place] [address] Apr, [facility] [address] [address] Apr, Schizoaffective disorder, depressive typ e F25.1 and Borderline personality disorder F60.3 [facility] [address] [place] [id number] [place] [address] Apr, Paranoid schizophrenia F20.0 ; Posttraum atic stress disorder F43.10 ; Attention deficit hyperactivity disorder (ADHD), inattentive type, 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 and Borderline personality disorder F60.3 [facility] [address] [place] [id number] [place] [address] Apr, [facility] [address] [place] [id number] [place] [address] Apr, Paranoid schizophrenia F20.0 ; Posttraum atic stress disorder F43.10 ; Attention deficit hyperactivity disorder (ADHD), inattentive type, 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 and Borderline personality disorder F60.3 [facility] [address] [address] Apr, [facility] [address] [address] Mar, Paranoid schizophrenia F20.0 [facility] [address] [address] Mar, [facility] [address] [address] Mar, Paranoid schizophrenia F20.0 ; Posttraum atic stress disorder F43.10 ; Attention deficit hyperactivity disorder (ADHD), inattentive type, 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 and Borderline personality disorder F60.3 [facility] [address] [address] February, Paranoid schizophrenia F20.0 [facility] [address] [address] February, Paranoid schizophrenia F20.0 ; Posttraum atic stress disorder F43.10 ; Attention deficit hyperactivity disorder (ADHD), inattentive type, 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 and Borderline personality disorder F60.3 [facility] [address] [address] February, Paranoid schizophrenia F20.0 ; Posttraum atic stress disorder F43.10 ; Attention deficit hyperactivity disorder (ADHD), inattentive type, 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 and Borderline personality disorder F60.3 [facility] [address] [address] February, [facility] [address] [address] February, Paranoid schizophrenia F20.0 [facility] [address] [address] February, Paranoid schizophrenia F20.0 [facility] [address] [address] February, Paranoid schizophrenia F20.0 ; Posttraum atic stress disorder F43.10 ; Attention deficit hyperactivity disorder (ADHD), inattentive type, 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 and Borderline personality disorder F60.3 [facility] [address] [place] [id number] [place] [address] Jan, Paranoid schizophrenia F20.0 ; Posttraum atic stress disorder F43.10 ; Attention deficit hyperactivity disorder (ADHD), inattentive type, 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 and Borderline personality disorder F60.3 [facility] [address] [address] Jan, Paranoid schizophrenia F20.0 [facility] [address] [address] Jan, Paranoid schizophrenia F20.0 [facility] [address] [address] Jan, Paranoid schizophrenia F20.0 ; Posttraum atic stress disorder F43.10 ; Attention deficit hyperactivity disorder (ADHD), inattentive type, 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 and Borderline personality disorder F60.3 [facility] [address] [address] Dec, [facility] [address] [address] Nov, Paranoid schizophrenia F20.0 ; Posttraum atic stress disorder F43.10 ; Attention deficit hyperactivity disorder (ADHD), inattentive type, 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 and Borderline personality disorder F60.3 [facility] [address] [address] Nov, [facility] [address] [address] Oct, Paranoid schizophrenia F20.0 [facility] [address] [address] Oct, Paranoid schizophrenia F20.0 ; Posttraum atic stress disorder F43.10 ; Attention deficit hyperactivity disorder (ADHD), inattentive type, 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 ; Borderline personality disorder F60.3 and Other group home (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 Z79.899 [facility] [address] [address] Oct, [facility] [address] [address] Oct, [facility] [address] [address] Sep, [facility] [address] [address] Sep, Paranoid schizophrenia F20.0 ; Posttraum atic stress disorder F43.10 ; Attention deficit hyperactivity disorder (ADHD), inattentive type, 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 and Borderline personality disorder F60.3 [facility] [address] [address] Sep, Paranoid schizophrenia F20.0 [facility] [address] [address] Aug, Paranoid schizophrenia F20.0 ; Posttraum atic stress disorder F43.10 ; Attention deficit hyperactivity disorder (ADHD), inattentive type, 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 and Borderline personality disorder F60.3 [facility] [address] [address] Aug, Paranoid schizophrenia F20.0 ; Posttraum atic stress disorder F43.10 ; Attention deficit hyperactivity disorder (ADHD), inattentive type, 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 and Borderline personality disorder F60.3 [facility] [address] [address] Aug, [facility] [address] [place] [id number] Jul, Paranoid schizophrenia F20.0 ; Posttraum atic stress disorder F43.10 ; Attention deficit hyperactivity disorder (ADHD), inattentive type, 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 and Borderline personality disorder F60.3 [facility] [address] [address] Jul, Paranoid schizophrenia F20.0 [facility] [address] [address] Jul, Paranoid schizophrenia F20.0 ; Posttraum atic stress disorder F43.10 ; Attention deficit hyperactivity disorder (ADHD), inattentive type, 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 and Borderline personality disorder F60.3 [facility] [address] [address] Jun, Paranoid schizophrenia F20.0 ; Posttraum atic stress disorder F43.10 ; Attention deficit hyperactivity disorder (ADHD), inattentive type, 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 and Borderline personality disorder F60.3 [facility] [address] [address] May, Other group home (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 Z 79.899 [facility] [address] [address] May, [facility] [address] [address] May, [facility] [address] [address] May, Attention deficit hyperactivity disorder (ADHD), inattentive type, 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 [facility] [address] [address] May, [facility] [address] [address] May, Attention deficit hyperactivity disorder (ADHD), inattentive type, 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 [facility] [address] [address] May, Paranoid schizophrenia F20.0 ; Posttraum atic stress disorder F43.10 ; Attention deficit hyperactivity disorder (ADHD), inattentive type, 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 and Other group home (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 Z79.899 [facility] [address] [address] Apr, Paranoid schizophrenia F20.0 [facility] [address] [address] Apr, Paranoid schizophrenia F20.0 ; Posttraum atic stress disorder F43.10 and Attention deficit hyperactivity disorder (ADHD), inattentive type, 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 [facility] [address] [address] February, [facility] [address] [address] February, Paranoid schizophrenia F20.0 ; Posttraum atic stress disorder F43.10 and Attention deficit hyperactivity disorder (ADHD), inattentive type, 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 [facility] [address] [address] February, Paranoid schizophrenia F20.0 ; Posttraum atic stress disorder F43.10 and Attention deficit hyperactivity disorder (ADHD), inattentive type, 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 [facility] [address] [address] Jan, Paranoid schizophrenia F20.0 ; Posttraum atic stress disorder F43.10 and Attention deficit hyperactivity disorder (ADHD), inattentive type, 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 [facility] [address] [id number] Dec, Dental examination Z01.20 [facility] [address] [id number] Nov, Dental examination Z01.20 [facility] [address] [id number] Nov, Dental examination Z01.20 [facility] [address] [id number] Nov, Dental caries K02.9 [facility] [address] [address] 13 Nov, 2016 High risk medication use Z79.899 [facility] [address] [address] Nov, Paranoid schizophrenia F20.0 ; Posttraum atic stress disorder F43.10 ; Attention deficit hyperactivity disorder (ADHD), inattentive type, 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 and Borderline personality disorder in adult F60.3 [facility] [address] [place] [id number] [place] [id number] Oct, Dental caries K02.9 [facility] [address] [address] Sep, Paranoid schizophrenia F20.0 ; Posttraum atic stress disorder F43.10 and Attention deficit hyperactivity disorder (ADHD), inattentive type, 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 [facility] [address] [address] Aug, Paranoid schizophrenia F20.0 ; Posttraum atic stress disorder F43.10 and Attention deficit hyperactivity disorder (ADHD), inattentive type, 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 [facility] [address] [facility] [id number] [address] [place] [address] Aug, Strep throat J02.0 and Cough R05 [facility] [address] [address] Aug, [facility] [address] [address] Jul, Paranoid schizophrenia F20.0 ; Posttraum atic stress disorder F43.10 and Attention deficit hyperactivity disorder (ADHD), inattentive type, 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0 [facility] [address] [address] May, Paranoid schizophrenia F20.0 ; Posttraum atic stress disorder F43.10 and Attention deficit hyperactivity disorder (ADHD), inattentive type, 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 [facility] [address] [address] May, [facility] [address] [address] May, Paranoid schizophrenia F20.0 [facility] [address] [address] May, [facility] [address] [address] May, Paranoid schizophrenia F20.0 [facility] [address] [address] May, Schizoaffective disorder, unspecified F2 5.9 [facility] [address] [address] May, Schizoaffective disorder, unspecified F2 5.9 [facility] [address] [address] May, [facility] [address] [address] May, Paranoid schizophrenia F20.0 [facility] [address] [address] May, Paranoid schizophrenia F20.0 ; Posttraum atic stress disorder F43.10 and Attention deficit hyperactivity disorder (ADHD), inattentive type, 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 [facility] [address] [address] Mar, [facility] [address] [address] Mar, Paranoid schizophrenia F20.0 ; Posttraum atic stress disorder F43.10 and Attention deficit hyperactivity disorder (ADHD), inattentive type, 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 [facility] [address] [address] Mar, Paranoid schizophrenia F20.0 [facility] [address] [address] Mar, Paranoid schizophrenia F20.0 ; Attention deficit hyperactivity disorder (ADHD), inattentive type, 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 and Posttraumatic stress disorder F43.10 [facility] [address] [address] Mar, [facility] [address] [address] Mar, Paranoid schizophrenia F20.0 ; Posttraum atic stress disorder F43.10 and Attention deficit hyperactivity disorder (ADHD), inattentive type, 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 [facility] [address] [address] February, [facility] [address] [address] February, [facility] [address] [address] February, [facility] [address] [address] February, [facility] [address] [address] Jan, Paranoid schizophrenia F20.0 [facility] [address] [id number] Jan, Dental examination Z01.20 [facility] [address] [id number] Jan, Dental caries K02.9 [facility] [address] [id number] Jan, Dental examination Z01.20 [facility] [address] [id number] Dec, Encounter for dental examination Z01.20 [facility] [address] [address] Dec, Paranoid schizophrenia F20.0 [facility] [address] [id number] Dec, Dental examination Z01.20 [facility] [address] [address] Dec, [facility] [address] [address] Dec, Paranoid schizophrenia F20.0 ; Posttraum atic stress disorder F43.10 and Attention deficit hyperactivity disorder (ADHD), inattentive type, 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 [facility] [address] [address] Nov, Schizoaffective disorder, unspecified F2 5.9 [facility] [address] [address] Oct, Paranoid schizophrenia F20.0 [facility] [address] [address] Oct, [facility] [address] [address] Sep, Paranoid schizophrenia F20.0 ; Posttraum atic stress disorder F43.10 and Attention deficit hyperactivity disorder (ADHD), inattentive type, 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10 ; P aranoid schizophrenia F20.0 and Attention deficit hyperactivity disorder (ADHD), inattentive type, 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 [facility] [address] [address] Jul, Bipolar disorder, unspecified F31.9 [facility] [address] [address] Jul, [facility] [address] [address] Jun, [facility] [address] [address] Jun, Schizoaffective disorder, chronic 295.72 ; Posttraumatic stress disorder 309.81 and Attention deficit disorder of childhood without mention of hyperactivity 314.00 [facility] [address] [address] May, [facility] [address] [address] May, [facility] [address] [address] May, Schizoaffective disorder, chronic 295.72 ; Posttraumatic stress disorder 309.81 ; Attention deficit disorder of childhood without mention of hyperactivity 314.00 and Bipolar disorder, unspecified 296.80 [facility] [address] [address] Apr, Schizoaffective disorder, chronic 295.72 [facility] [address] [address] Apr, [facility] [id number] [place] [address] Apr, Schizoaffective disorder, chronic 295.72 ; Posttraumatic stress disorder 309.81 and Attention deficit disorder of childhood without mention of hyperactivity 314.00 [facility] [id number] [place] [address] Mar, Disorganized schizophrenia, 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 [facility] [address] [address] Mar, [facility] [address] [address] Mar, [facility] [address] [address] Mar, [facility] [address] [address] Mar, [facility] [id number] [place] [address] February, Schizoaffective disorder, chronic 295.72 [facility] [address] [address] February, [facility] [address] [address] February, Attention deficit disorder of childhood without mention of hyperactivity 314.00 ; Posttraumatic stress disorder 309.81 and Schizoaffective disorder, chronic 295.72 [facility] [id number] [place] [address] Jan, [facility] [id number] [place] [address] Jan, [facility] [address] [address] Jan, [facility] [id number] [place] [address] Dec, [facility] [id number] [place] [address] Dec, [facility] [place] [facility] [address] [id number] [place] [address] Dec, [facility] [place] [facility] [address] [id number] [place] [address] Dec, [facility] [place] [facility] [address] [id number] [place] [address] Dec, 2014 [facility] [place] [facility] [address] [id number] [place] [address] Dec, 2014 [facility] [place] [facility] [address] [id number] [place] [address] Dec, [facility] [place] [facility] [address] [id number] [place] [address] Dec, 2014 [facility] [place] [facility] [address] [id number] [place] [address] Nov, 2014 [facility] [place] [facility] [address] [id number] [place] [address] Nov, 2014 [facility] [place] [facility] [address] [id number] [place] [address] Nov, 2014 [facility] [place] [facility] [address] [id number] [place] [address] Nov, 2014 [facility] [place] [facility] [address] [id number] [place] [address] Nov, 2014 [facility] [place] [facility] [address] [id number] [place] [address] Nov, 2014 [facility] [place] [facility] [address] [id number] [place] [address] Nov, 2014 [facility] [place] [facility] [address] [id number] [place] [address] Nov, 2014 [facility] [place] [facility] [address] [id number] [place] [address] Nov, 2014 [facility] [place] [facility] [address] [id number] [place] [address] Nov, 2014 [facility] [place] [facility] [address] [id number] [place] [address] 29 Oct, 2014 [facility] [place] [facility] [address] [id number] [place] [address] 29 Oct, 2014 [facility] [place] [facility] [address] [id number] [place] [address] Oct, [facility] [place] [facility] [address] [id number] [place] [address] 15 Oct, 2014 [facility] [place] [facility] [address] [id number] [place] [address] 15 Oct, 2014 [facility] [place] [facility] [address] [id number] [place] [address] Oct, [facility] [place] [facility] [address] [id number] [place] [address] Oct, [facility] [place] [facility] [address] [id number] [place] [address] 17 Sep, 2014 [facility] [place] [facility] [address] [id number] [place] [address] 17 Sep, 2014 [facility] [place] [facility] [address] [id number] [place] [address] 15 Sep, 2014 [facility] [place] [facility] [address] [id number] [place] [address] 15 Sep, 2014 [facility] [place] [facility] [address] [id number] [place] [address] 20 Aug, 2014 [facility] [place] [facility] [address] [id number] [place] [address] 20 Aug, 2014 [facility] [place] [facility] [address] [id number] [place] [address] 14 Aug, 2014 [facility] [place] [facility] [address] [id number] [place] [address] 14 Aug, 2014 [facility] [place] [facility] [address] [id number] [place] [address] 14 Aug, 2014 [facility] [place] [facility] [address] [id number] [place] [address] Aug, [facility] [place] [facility] [address] [id number] [place] [address] 29 Jul, 2014 [facility] [place] [facility] [address] [id number] [place] [address] 29 Jul, 2014 [facility] [place] [facility] [address] [id number] [place] [address] Jul, [facility] [place] [facility] [address] [id number] [place] [address] 24 Jul, 2014 [facility] [place] [facility] [address] [id number] [place] [address] 15 Jul, 2014 [facility] [place] [facility] [address] [id number] [place] [address] 15 Jul, 2014 [facility] [place] [facility] [address] [id number] [place] [address] 27 Jun, 2013 [facility] [place] [facility] [address] [id number] [place] [address] 27 Sep, 2013 [facility] [place] [facility] [address] [id number] [place] [address] 26 Sep, 2013 [facility] [place] [facility] [address] [id number] [place] [address] 26 Sep, 2013 [facility] [place] [facility] [address] [id number] [place] [address] 26 Sep, 2013 [facility] [place] [facility] [address] [id number] [place] [address] 26 Sep, 2013 [facility] [place] [facility] [address] [id number] [place] [address] 16 Sep, 2013 [facility] [place] [facility] [address] [id number] [place] [address] 16 Sep, 2013 [facility] [place] [facility] [address] [id number] [place] [address] 16 Sep, 2013 [facility] [place] [facility] [address] [id number] [place] [address] 16 Sep, 2013 [facility] [place] [facility] [address] [id number] [place] [address] Jun, [facility] [place] [facility] [address] [id number] [place] [address] May, [facility] [place] [facility] [address] [facility] [id number] [place] [address] May, [facility] [place] [facility] [address] [facility] [id number] [place] [address] May, [facility] [place] [facility] [address] [facility] [id number] [place] [address] May, [facility] [place] [facility] [address] [facility] [id number] [place] [address] May, [facility] [place] [facility] [address] [facility] [id number] [place] [address] May, [facility] [place] [facility] [address] [id number] [place] [address] May, [facility] [place] [facility] [address] [id number] [place] [address] May, [facility] [place] [facility] [address] [facility] [id number] [place] [address] May, [facility] [place] [facility] [address] [facility] [id number] [place] [address] May, [facility] [place] [facility] [address] [facility] [id number] [place] [address] Apr, [facility] [place] [facility] [address] [id number] [place] [address] Apr, [facility] [place] [facility] [address] [facility] [id number] [place] [address] Apr, [facility] [place] [facility] [address] [id number] [place] [address] Apr, [facility] [place] [facility] [address] [facility] [id number] [place] [address] Apr, [facility] [place] [facility] [address] [id number] [place] [address] Apr, [facility] [place] [facility] [address] [facility] [id number] [place] [address] 17 Apr, 2014 [facility] [place] [facility] [address] [facility] [id number] [place] [address] 15 Apr, 2014 [facility] [place] [facility] [address] [facility] [id number] [place] [address] 15 Apr, 2014 [facility] [place] [facility] [address] [facility] [id number] [place] [address] Apr, [facility] [place] [facility] [address] [facility] [id number] [place] [address] Mar, [facility] [place] [facility] [address] [facility] [id number] [place] [address] Mar, [facility] [place] [facility] [address] [id number] [place] [address] 25 Mar, 2014 [facility] [place] [facility] [address] [id number] [place] [address] 24 Mar, 2014 [facility] [place] [facility] [address] [id number] [place] [address] 20 Mar, 2014 [facility] [place] [facility] [address] [facility] [id number] [place] [address] 18 Mar, 2014 [facility] [place] [facility] [address] [id number] [place] [address] 18 Mar, 2014 [facility] [place] [facility] [address] [id number] [place] [address] 16 Mar, 2014 [facility] [place] [facility] [address] [facility] [id number] [place] [address] 16 Mar, 2014 [facility] [place] [facility] [address] [facility] [id number] [place] [address] 13 Mar, 2014 [facility] [place] [facility] [address] [id number] [place] [address] 13 Mar, 2014 [facility] [place] [facility] [address] [facility] [id number] [place] [address] 11 Mar, 2014 [facility] [place] [facility] [address] [id number] [place] [address] Mar, [facility] [place] [facility] [address] [id number] [place] [address] Mar, [facility] [place] [facility] [address] [id number] [place] [address] Mar, [facility] [place] [facility] [address] [id number] [place] [address] Mar, [facility] [place] [facility] [address] [id number] [place] [address] Mar, [facility] [place] [facility] [address] [facility] [id number] [place] [address] Mar, [facility] [place] [facility] [address] [id number] [place] [address] Mar, [facility] [place] [facility] [address] [id number] [place] [address] Mar, [facility] [place] [facility] [address] [id number] [place] [address] February, [facility] [place] [facility] [address] [id number] [place] [address] February, [facility] [place] [facility] [address] [id number] [place] [address] February, [facility] [place] [facility] [address] [id number] [place] [address] February, [facility] [place] [facility] [address] [id number] [place] [address] February, [facility] [place] [facility] [address] [id number] [place] [address] February, [facility] [place] [facility] [address] [id number] [place] [address] February, [facility] [place] [facility] [address] [id number] [place] [address] February, [facility] [place] [facility] [address] [id number] [place] [address] February, [facility] [place] [facility] [address] [id number] [place] [address] February, [facility] [place] [facility] [address] [facility] [id number] [place] [address] February, [facility] [place] [facility] [address] [facility] [id number] [place] [address] February, [facility] [place] [facility] [address] [id number] [place] [address] February, [facility] [place] [facility] [address] [id number] [place] [address] February, [facility] [place] [facility] [address] [facility] [id number] [place] [address] February, [facility] [place] [facility] [address] [id number] [place] [address] February, [facility] [place] [facility] [address] [id number] [place] [address] February, [facility] [place] [facility] [address] [id number] [place] [address] February, [facility] [place] [facility] [address] [id number] [place] [address] February, [facility] [place] [facility] [address] [id number] [place] [address] February, [facility] [place] [facility] [address] [id number] [place] [address] February, [facility] [place] [facility] [address] [id number] [place] [address] Jan, [facility] [place] [facility] [address] [facility] [id number] [place] [address] Jan, [facility] [place] [facility] [address] [id number] [place] [address] Jan, [facility] [place] [facility] [address] [id number] [place] [address] Jan, [facility] [place] [facility] [address] [id number] [place] [address] Jan, [facility] [place] [facility] [address] [facility] [id number] [place] [address] 18 Jan, 2014 [facility] [place] [facility] [address] [facility] [id number] [place] [address] 10 Jan, 2014 [facility] [place] [facility] [address] [id number] [place] [address] 10 Jan, 2014 [facility] [place] [facility] [address] [id number] [place] [address] 21 Dec, 2013 [facility] [place] [facility] [address] [id number] [place] [address] 20 Dec, 2013 [facility] [place] [facility] [address] [id number] [place] [address] 20 Dec, 2013 [facility] [place] [facility] [address] [id number] [place] [address] 19 Dec, 2013 [facility] [place] [facility] [address] [id number] [place] [address] 19 Dec, 2013 [facility] [place] [facility] [address] [id number] [place] [address] 15 Dec, 2013 [facility] [place] [facility] [address] [id number] [place] [address] 15 Dec, 2013 [facility] [place] [facility] [address] [id number] [place] [address] 11 Dec, 2013 [facility] [place] [facility] [address] [id number] [place] [address] 10 Dec, 2013 [facility] [place] [facility] [address] [id number] [place] [address] 10 Dec, 2013 [facility] [place] [facility] [address] [facility] [id number] [place] [address] 18 Nov, 2013 [facility] [place] [facility] [address] [id number] [place] [address] 17 Nov, 2013 [facility] [place] [facility] [address] [id number] [place] [address] 17 Nov, 2013 [facility] [place] [facility] [address] [id number] [place] [address] Nov, [facility] [place] [facility] [address] [id number] [place] [address] Nov, [facility] [place] [facility] [address] [id number] [place] [address] Oct, [facility] [place] [facility] [address] [id number] [place] [address] Oct, [facility] [place] [facility] [address] [id number] [place] [address] Oct, [facility] [place] [facility] [address] [id number] [place] [address] Sep, [facility] [place] [facility] [address] [id number] [place] [address] Sep, [facility] [place] [facility] [address] [id number] [place] [address] Sep, [facility] [place] [facility] [address] [id number] [place] [address] Sep, [facility] [place] [facility] [address] [id number] [place] [address] Aug, [facility] [place] [facility] [address] [id number] [place] [address] Aug, [facility] [place] [facility] [address] [id number] [place] [address] Jul, [facility] [place] [facility] [address] [id number] [place] [address] Jul, [facility] [place] [facility] [address] [id number] [place] [address] Jul, [facility] [place] [facility] [address] [id number] [place] [address] Jul, [facility] [place] [facility] [address] [id number] [place] [address] Jul, [facility] [place] [facility] [address] [id number] [place] [address] Jun, [facility] [place] [facility] [address] [id number] [place] [address] 25 Jun, 2013 [facility] [place] [facility] [address] [id number] [place] [address] 19 Jun, 2013 [facility] [place] [facility] [address] [id number] [place] [address] 18 Jun, 2013 [facility] [place] [facility] [address] [id number] [place] [address] 16 Jun, 2013 [facility] [place] [facility] [address] [id number] [place] [address] 12 Jun, 2013 [facility] [place] [facility] [address] [id number] [place] [address] 11 Jun, 2013 [facility] [place] [facility] [address] [id number] [place] [address] May, [facility] [place] [facility] [address] [id number] [place] [address] May, [facility] [place] [facility] [address] [id number] [place] [address] Apr, [facility] [place] [facility] [address] [id number] [place] [address] Apr, [facility] [place] [facility] [address] [id number] [place] [address] Apr, [facility] [place] [facility] [address] [id number] [place] [address] Mar, [facility] [place] [facility] [address] [id number] [place] [address] Mar, [facility] [place] [facility] [address] [id number] [place] [address] February, [facility] [place] [facility] [address] [id number] [place] [address] February, [facility] [place] [facility] [address] [id number] [place] [address] February, [facility] [place] [facility] [address] [id number] [place] [address] February, [facility] [place] [facility] [address] [id number] [place] [address] Jan, [facility] [place] [facility] [address] [id number] [place] [address] 17 Jan, 2013 [facility] [place] [facility] [address] [id number] [place] [address] 16 Jan, 2013 [facility] [place] [facility] [address] [id number] [place] [address] 29 Dec, 2012 [facility] [place] [facility] [address] [id number] [place] [address] Dec, [facility] [place] [facility] [address] [id number] [place] [address] Dec, [facility] [place] [facility] [address] [id number] [place] [address] Dec, [facility] [place] [facility] [address] [id number] [place] [address] Nov, [facility] [place] [facility] [address] [id number] [place] [address] Nov, [facility] [place] [facility] [address] [id number] [place] [address] Oct, [facility] [place] [facility] [address] [id number] [place] [address] Oct, [facility] [place] [facility] [address] [id number] [place] [address] Oct, [facility] [place] [facility] [address] [id number] [place] [address] Oct, [facility] [place] [facility] [address] [id number] [place] [address] Aug, [facility] [place] [facility] [address] [id number] [place] [address] Aug, [facility] [place] [facility] [address] [id number] [place] [address] Jun, [facility] [place] [facility] [address] [id number] [place] [address] May, [facility] [place] [facility] [address] [facility] [id number] [place] [address] May, [facility] [place] [facility] [address] [id number] [place] [address] Apr, [facility] [place] [facility] [address] [id number] [place] [address] Apr, [facility] [place] [facility] [address] [id number] [place] [address] Apr, [facility] [place] [facility] [address] [facility] [id number] [place] [address] Mar, [facility] [place] [facility] [address] [id number] [place] [address] Mar, [facility] [place] [facility] [address] [id number] [place] [address] Mar, [facility] [address] [id number] [place] [address] Mar, [facility] [address] [id number] [place] [address] Mar, [facility] [address] [id number] [place] [address] February, [facility] [address] [id number] [place] [address] February, [facility] [address] [id number] [place] [address] February, [facility] [address] [id number] [place] [address] February, [facility] [address] [id number] [place] [address] February, [facility] [address] [id number] [place] [address] February, [facility] [address] [id number] [place] [address] February, [facility] [address] [id number] [place] [address] 25 Jan, 2012 [facility] [address] [facility] [id number] [facility] [place] [address] 18 Jan, 2012 [facility] [address] [id number] [place] [address] 17 Jan, 2012 [facility] [address] [id number] [facility] [place] [address] 13 Jan, 2012 [facility] [address] [id number] [place] [address] 10 Jan, 2012 [facility] [address] [id number] [place] [address] 04 Jan, 2012 [facility] [address] [id number] [place] [address] 30 Dec, 2011 [facility] [address] [id number] [place] [address] 24 Dec, 2011 [facility] [address] [id number] [place] [address] 20 Dec, 2011 [facility] [address] [id number] [place] [address] 13 Dec, 2011 [facility] [address] [id number] [place] [address] 06 Dec, 2011 [facility] [address] [id number] [place] [address] 28 Nov, 2011 [facility] [address] [id number] [place] [address] 27 Nov, 2011 [facility] [address] [id number] [place] [address] 25 Nov, 2011 [facility] [address] [id number] [place] [address] 14 Nov, 2011 [facility] [address] [id number] [place] [address] 10 Nov, 2011 [facility] [address] [id number] [place] [address] Nov, [facility] [address] [id number] [place] [address] Oct, [facility] [address] [id number] [place] [address] Oct, [facility] [address] [id number] [place] [address] Oct, [facility] [address] [id number] [place] [address] Oct, [facility] [address] [id number] [place] [address] Oct, [facility] [address] [id number] [place] [address] Sep, [facility] [address] [id number] [place] [address] Sep, [facility] [address] [id number] [place] [address] Sep, [facility] [address] [id number] [place] [address] Sep, [facility] [address] [id number] [place] [address] Sep, [facility] [address] [id number] [place] [address] Sep, [facility] [address] [id number] [place] [address] Sep, [facility] [address] [id number] [place] [address] Sep, [facility] [address] [id number] [place] [address] Sep, [facility] [address] [id number] [place] [address] Aug, [facility] [address] [id number] [place] [address] Aug, [facility] [address] [id number] [place] [address] Aug, [facility] [address] [id number] [place] [address] Aug, [facility] [address] [id number] [place] [address] Aug, [facility] [address] [id number] [place] [address] Aug, [facility] [address] [id number] [place] [address] Aug, [facility] [address] [id number] [place] [address] Aug, [facility] [address] [id number] [place] [address] Aug, [facility] [address] [id number] [place] [address] Aug, [facility] [address] [id number] [place] [address] Aug, [facility] [address] [id number] [place] [address] Aug, [facility] [address] [id number] [place] [address] Jul, [facility] [address] [id number] [place] [address] Jul, [facility] [id number] [place] [address] Jul, [facility] [id number] [place] [address] Jul, [facility] [id number] [place] [address] Jul, [facility] [id number] [place] [address] Jul, [facility] [id number] [place] [address] 18 Jul, 2011 [facility] [id number] [place] [address] Jul, [facility] [id number] [place] [address] Jul, [facility] [id number] [place] [address] Jul, [facility] [id number] [place] [address] Nov, [facility] [id number] [place] [address] Aug, [facility] [id number] [place] [address] Aug, [facility] [id number] [place] [address] Aug, [facility] [id number] [place] [address] Aug, [facility] [id number] [place] [address] Jul, IMMUNIZATIONS No Known Immunizations SOCIAL HISTORY Never Assessed REASON FOR VISIT PLAN OF CARE VITAL SIGNS MEDICATIONS Unknown Medications RESULTS No Results PROCEDURES Procedure Date Ordered Result Body Site COMPLETE CBC W/AUTO DIFF WBC Nov 28, 2013 ASSAY OF IMIPRAMINE Nov 28, 2013 LIPID PANEL Nov 28, 2013 COMPREHEN METABOLIC PANEL Nov 28, 2013 INSTRUCTIONS MEDICATIONS ADMINISTERED No Known Medications [...] attempt by hanging 2015 Hospitalization History [facility] 01/30/2018-02/10/20 08 [facility]ization History [facility] 05/04/18- [facility]
--- OUTSIDE RECORDS SUMMARY | 2020-04-04 01:46 | XMS REPORT ---
Author Author Kaila Onofre Doctor Organization [facility] Address Unknown Phone Unavailable Care Team Providers Care Magazine Filler Name Role Phone Migration, Doctor Unavailable Unavailable PROBLEMS Type Condition ICD9-CM Code [id number] Code Onset Dates Condition S tatus SNOMED Code Problem Paranoid schizophrenia F20.0 Active 44239466 Problem Borderline personality disorder F60.3 Active 68895657 Problem Schizoaffective disorder, depressive type F25.1 Active 64330749 Problem Schizoaffective disorder, unspecified F25.9 Active 20832021 Problem Attention deficit hyperactivity disorder (ADHD), inattentive type, 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 93855162 Problem Posttraumatic stress disorder F43.10 Active 27493301 Problem High risk medication use Z79.899 Activ e [id number] ALLERGIES No Information ENCOUNTERS Encounter Location Date Diagnosis [place] [address] [address] Dec, [place] [address] [address] Nov, Paranoid schizophrenia F20.0 ; Attention deficit hyperactivity disorder (ADHD), inattentive type, 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 ; Posttraumatic stress disorder F43.10 and Borderline personality disorder F60.3 [place] [address] [address] Nov, [place] [address] [address] Oct, Paranoid schizophrenia F20.0 ; Attention deficit hyperactivity disorder (ADHD), inattentive type, 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 ; Posttraumatic stress disorder F43.10 and Borderline personality disorder F60.3 [place] [address] [address] Oct, [facility] [address] [address] Sep, Paranoid schizophrenia F20.0 ; Attention deficit hyperactivity disorder (ADHD), inattentive type, 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 ; Posttraumatic stress disorder F43.10 and Borderline personality disorder F60.3 [facility] [address] [address] Aug, Paranoid schizophrenia F20.0 ; Attention deficit hyperactivity disorder (ADHD), inattentive type, 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 ; Posttraumatic stress disorder F43.10 and Borderline personality disorder F60.3 [facility] [address] [address] Aug, [facility] [address] [facility] [id number] [address] [place] [address] Aug, Acute bronchitis, unspecifie d organism J20.9 [facility] [address] [address] Aug, [facility] [address] [address] Aug, [facility] [address] [address] Jul, Paranoid schizophrenia F20.0 ; Attention deficit hyperactivity disorder (ADHD), inattentive type, 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 ; Posttraumatic stress disorder F43.10 and Borderline personality disorder F60.3 [facility] [address] [address] Jul, [facility] [address] [address] Jun, Paranoid schizophrenia F20.0 ; Other katherin g term (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 Z79.899 ; Attention deficit hyperactivity disorder (ADHD), inattentive type, 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 ; Posttraumatic stress disorder F43.10 and Borderline personality disorder F60.3 [facility] [address] [address] Jun, Paranoid schizophrenia F20.0 ; Attention deficit hyperactivity disorder (ADHD), inattentive type, 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 ; Posttraumatic stress disorder F43.10 ; Borderline personality disorder F60.3 and Other director long term care (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 Z79.899 [place] [address] [address] Apr, Paranoid schizophrenia F20.0 ; Posttraum atic stress disorder F43.10 ; Attention deficit hyperactivity disorder (ADHD), inattentive type, 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 and Borderline personality disorder F60.3 [place] [address] [address] Apr, Paranoid schizophrenia F20.0 [place] [address] [address] Apr, Paranoid schizophrenia F20.0 ; Posttraum atic stress disorder F43.10 ; Attention deficit hyperactivity disorder (ADHD), inattentive type, 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 and Borderline personality disorder F60.3 [place] [address] [address] Mar, Paranoid schizophrenia F20.0 [place] [address] [address] Mar, Paranoid schizophrenia F20.0 ; Posttraum atic stress disorder F43.10 ; Attention deficit hyperactivity disorder (ADHD), inattentive type, 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 and Borderline personality disorder F60.3 [place] [address] [address] February, Paranoid schizophrenia F20.0 [place] [address] [address] Jan, Paranoid schizophrenia F20.0 ; Posttraum atic stress disorder F43.10 ; Attention deficit hyperactivity disorder (ADHD), inattentive type, 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 and Borderline personality disorder F60.3 [facility] [address] [address] Dec, Paranoid schizophrenia F20.0 ; Posttraum atic stress disorder F43.10 ; Attention deficit hyperactivity disorder (ADHD), inattentive type, 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 and Borderline personality disorder F60.3 [facility] [address] [address] Dec, Paranoid schizophrenia F20.0 ; Posttraum atic stress disorder F43.10 ; Attention deficit hyperactivity disorder (ADHD), inattentive type, 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 and Borderline personality disorder F60.3 [facility] [address] [address] Oct, Paranoid schizophrenia F20.0 ; Posttraum atic stress disorder F43.10 ; Attention deficit hyperactivity disorder (ADHD), inattentive type, 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 and Borderline personality disorder F60.3 [facility] [address] [address] Oct, Paranoid schizophrenia F20.0 ; Posttraum atic stress disorder F43.10 ; Attention deficit hyperactivity disorder (ADHD), inattentive type, 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 and Borderline personality disorder F60.3 [facility] [address] [address] Aug, [facility] [address] [address] Aug, Paranoid schizophrenia F20.0 ; Posttraum atic stress disorder F43.10 ; Attention deficit hyperactivity disorder (ADHD), inattentive type, 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 and Borderline personality disorder F60.3 [facility] [address] [facility] [id number] [address] [place] [address] Jul, Dry skin dermatitis L85.3 [facility] [address] [id number] [place] [address] Jul, [facility] [address] [address] Jul, Paranoid schizophrenia F20.0 [facility] [address] [place] [id number] [place] [address] May, Paranoid schizophrenia F20.0 ; Posttraum atic stress disorder F43.10 ; Attention deficit hyperactivity disorder (ADHD), inattentive type, 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 and Borderline personality disorder F60.3 [facility] [address] [facility] [place] [address] May, [facility] [address] [id number] [place] [address] May, Paranoid schizophrenia F20.0 [facility] [address] [place] [id number] [place] [address] May, Paranoid schizophrenia F20.0 ; Posttraum atic stress disorder F43.10 ; Attention deficit hyperactivity disorder (ADHD), inattentive type, 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 and Borderline personality disorder F60.3 [facility] [address] [place] [id number] [place] [address] Apr, [facility] [address] [place] [id number] [place] [address] Apr, Paranoid schizophrenia F20.0 ; Posttraum atic stress disorder F43.10 ; Attention deficit hyperactivity disorder (ADHD), inattentive type, 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 and Borderline personality disorder F60.3 [facility] [address] [place] [id number] [place] [address] Apr, [facility] [address] [address] Apr, Schizoaffective disorder, depressive typ e F25.1 and Borderline personality disorder F60.3 [facility] [address] [place] [id number] [place] [address] Apr, Paranoid schizophrenia F20.0 ; Posttraum atic stress disorder F43.10 ; Attention deficit hyperactivity disorder (ADHD), inattentive type, 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 and Borderline personality disorder F60.3 [facility] [address] [place] [id number] [place] [address] Apr, [facility] [address] [place] [id number] [place] [address] Apr, Paranoid schizophrenia F20.0 ; Posttraum atic stress disorder F43.10 ; Attention deficit hyperactivity disorder (ADHD), inattentive type, 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 and Borderline personality disorder F60.3 [facility] [address] [address] Apr, [facility] [address] [address] Mar, Paranoid schizophrenia F20.0 [facility] [address] [address] Mar, [facility] [address] [address] Mar, Paranoid schizophrenia F20.0 ; Posttraum atic stress disorder F43.10 ; Attention deficit hyperactivity disorder (ADHD), inattentive type, 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 and Borderline personality disorder F60.3 [facility] [address] [address] February, Paranoid schizophrenia F20.0 [facility] [address] [address] February, Paranoid schizophrenia F20.0 ; Posttraum atic stress disorder F43.10 ; Attention deficit hyperactivity disorder (ADHD), inattentive type, 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 and Borderline personality disorder F60.3 [facility] [address] [address] February, Paranoid schizophrenia F20.0 ; Posttraum atic stress disorder F43.10 ; Attention deficit hyperactivity disorder (ADHD), inattentive type, 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 and Borderline personality disorder F60.3 [facility] [address] [address] February, [facility] [address] [address] February, Paranoid schizophrenia F20.0 [facility] [address] [address] February, Paranoid schizophrenia F20.0 [facility] [address] [address] February, Paranoid schizophrenia F20.0 ; Posttraum atic stress disorder F43.10 ; Attention deficit hyperactivity disorder (ADHD), inattentive type, 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 and Borderline personality disorder F60.3 [facility] [address] [place] [id number] [place] [address] Jan, Paranoid schizophrenia F20.0 ; Posttraum atic stress disorder F43.10 ; Attention deficit hyperactivity disorder (ADHD), inattentive type, 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 and Borderline personality disorder F60.3 [facility] [address] [address] Jan, Paranoid schizophrenia F20.0 [facility] [address] [address] Jan, Paranoid schizophrenia F20.0 [facility] [address] [address] Jan, Paranoid schizophrenia F20.0 ; Posttraum atic stress disorder F43.10 ; Attention deficit hyperactivity disorder (ADHD), inattentive type, 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 and Borderline personality disorder F60.3 [facility] [address] [address] Dec, [facility] [address] [address] Nov, Paranoid schizophrenia F20.0 ; Posttraum atic stress disorder F43.10 ; Attention deficit hyperactivity disorder (ADHD), inattentive type, 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 and Borderline personality disorder F60.3 [facility] [address] [address] Nov, [facility] [address] [address] Oct, Paranoid schizophrenia F20.0 [facility] [address] [address] Oct, Paranoid schizophrenia F20.0 ; Posttraum atic stress disorder F43.10 ; Attention deficit hyperactivity disorder (ADHD), inattentive type, 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 ; Borderline personality disorder F60.3 and Other snf (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 Z79.899 [facility] [address] [address] Oct, [facility] [address] [address] Oct, [facility] [address] [address] Sep, [facility] [address] [address] Sep, Paranoid schizophrenia F20.0 ; Posttraum atic stress disorder F43.10 ; Attention deficit hyperactivity disorder (ADHD), inattentive type, 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 and Borderline personality disorder F60.3 [facility] [address] [address] Sep, Paranoid schizophrenia F20.0 [facility] [address] [address] Aug, Paranoid schizophrenia F20.0 ; Posttraum atic stress disorder F43.10 ; Attention deficit hyperactivity disorder (ADHD), inattentive type, 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 and Borderline personality disorder F60.3 [facility] [address] [address] Aug, Paranoid schizophrenia F20.0 ; Posttraum atic stress disorder F43.10 ; Attention deficit hyperactivity disorder (ADHD), inattentive type, 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 and Borderline personality disorder F60.3 [facility] [address] [address] Aug, [facility] [address] [place] [address] Jul, Paranoid schizophrenia F20.0 ; Posttraum atic stress disorder F43.10 ; Attention deficit hyperactivity disorder (ADHD), inattentive type, 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 and Borderline personality disorder F60.3 [facility] [address] [address] Jul, Paranoid schizophrenia F20.0 [facility] [address] [address] Jul, Paranoid schizophrenia F20.0 ; Posttraum atic stress disorder F43.10 ; Attention deficit hyperactivity disorder (ADHD), inattentive type, 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 and Borderline personality disorder F60.3 [facility] [address] [address] Jun, Paranoid schizophrenia F20.0 ; Posttraum atic stress disorder F43.10 ; Attention deficit hyperactivity disorder (ADHD), inattentive type, 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 and Borderline personality disorder F60.3 [facility] [address] [address] May, Other snf (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 Z 79.899 [facility] [address] [address] May, [facility] [address] [address] May, [facility] [address] [address] May, Attention deficit hyperactivity disorder (ADHD), inattentive type, 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 [facility] [address] [address] May, [facility] [address] [address] May, Attention deficit hyperactivity disorder (ADHD), inattentive type, 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 [facility] [address] [address] May, Paranoid schizophrenia F20.0 ; Posttraum atic stress disorder F43.10 ; Attention deficit hyperactivity disorder (ADHD), inattentive type, 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 and Other snf (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 Z79.899 [facility] [address] [address] Apr, Paranoid schizophrenia F20.0 [facility] [address] [address] Apr, Paranoid schizophrenia F20.0 ; Posttraum atic stress disorder F43.10 and Attention deficit hyperactivity disorder (ADHD), inattentive type, 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 [facility] [address] [address] February, [facility] [address] [address] February, Paranoid schizophrenia F20.0 ; Posttraum atic stress disorder F43.10 and Attention deficit hyperactivity disorder (ADHD), inattentive type, 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 [facility] [address] [address] February, Paranoid schizophrenia F20.0 ; Posttraum atic stress disorder F43.10 and Attention deficit hyperactivity disorder (ADHD), inattentive type, 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 [facility] [address] [address] Jan, Paranoid schizophrenia F20.0 ; Posttraum atic stress disorder F43.10 and Attention deficit hyperactivity disorder (ADHD), inattentive type, 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 [facility] [address] [id number] Dec, Dental examination Z01.20 [facility] [address] [id number] Nov, Dental examination Z01.20 [facility] [address] [id number] Nov, Dental examination Z01.20 [facility] [address] [id number] Nov, Dental caries K02.9 [facility] [address] [address] Nov, 2016 High risk medication use Z79.899 [facility] [address] [address] Nov, Paranoid schizophrenia F20.0 ; Posttraum atic stress disorder F43.10 ; Attention deficit hyperactivity disorder (ADHD), inattentive type, 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 and Borderline personality disorder in adult F60.3 [facility] [address] [place] [id number] [place] [id number] Oct, Dental caries K02.9 [facility] [address] [address] Sep, Paranoid schizophrenia F20.0 ; Posttraum atic stress disorder F43.10 and Attention deficit hyperactivity disorder (ADHD), inattentive type, 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 [facility] [address] [address] Aug, Paranoid schizophrenia F20.0 ; Posttraum atic stress disorder F43.10 and Attention deficit hyperactivity disorder (ADHD), inattentive type, 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 [facility] [address] [facility] [id number] [address] [place] [address] Aug, Strep throat J02.0 and Cough R05 [facility] [address] [address] Aug, [facility] [address] [address] Jul, Paranoid schizophrenia F20.0 ; Posttraum atic stress disorder F43.10 and Attention deficit hyperactivity disorder (ADHD), inattentive type, 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 [facility] [address] [address] Jul, [facility] [address] [address] Jun, Paranoid schizophrenia F20.0 ; Posttraum atic stress disorder F43.10 and Attention deficit hyperactivity disorder (ADHD), inattentive type, 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 [facility] [address] [id number] Sep, 2016 Dental examination Z01.20 [facility] [address] [address] Jun, [facility] [address] [address] May, Paranoid schizophrenia F20.0 [facility] [address] [address] May, Paranoid schizophrenia F20.0 ; Posttraum atic stress disorder F43.10 and Attention deficit hyperactivity disorder (ADHD), inattentive type, 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 [facility] [address] [address] May, [facility] [address] [address] May, Paranoid schizophrenia F20.0 [facility] [address] [address] May, [facility] [address] [address] May, Paranoid schizophrenia F20.0 [facility] [address] [address] May, Schizoaffective disorder, unspecified F2 5.9 [facility] [address] [address] May, Schizoaffective disorder, unspecified F2 5.9 [facility] [address] [address] May, [facility] [address] [address] May, Paranoid schizophrenia F20.0 [facility] [address] [address] May, Paranoid schizophrenia F20.0 ; Posttraum atic stress disorder F43.10 and Attention deficit hyperactivity disorder (ADHD), inattentive type, 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 [facility] [address] [address] Mar, [facility] [address] [address] Mar, Paranoid schizophrenia F20.0 ; Posttraum atic stress disorder F43.10 and Attention deficit hyperactivity disorder (ADHD), inattentive type, 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 [facility] [address] [address] Mar, Paranoid schizophrenia F20.0 [facility] [address] [address] Mar, Paranoid schizophrenia F20.0 ; Attention deficit hyperactivity disorder (ADHD), inattentive type, 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 and Posttraumatic stress disorder F43.10 [facility] [address] [address] Mar, [facility] [address] [address] Mar, Paranoid schizophrenia F20.0 ; Posttraum atic stress disorder F43.10 and Attention deficit hyperactivity disorder (ADHD), inattentive type, 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 [facility] [address] [address] February, [facility] [address] [address] February, [facility] [address] [address] February, [facility] [address] [address] February, [facility] [address] [address] Jan, Paranoid schizophrenia F20.0 [facility] [address] [id number] Jan, Dental examination Z01.20 [facility] [address] [id number] Jan, Dental caries K02.9 [facility] [address] [id number] Jan, Dental examination Z01.20 [facility] [address] [id number] Dec, Encounter for dental examination Z01.20 [facility] [address] [address] Dec, Paranoid schizophrenia F20.0 [facility] [address] [id number] Dec, Dental examination Z01.20 [facility] [address] [address] Dec, [facility] [address] [address] Dec, Paranoid schizophrenia F20.0 ; Posttraum atic stress disorder F43.10 and Attention deficit hyperactivity disorder (ADHD), inattentive type, 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 [facility] [address] [address] Nov, Schizoaffective disorder, unspecified F2 5.9 [facility] [address] [address] Oct, Paranoid schizophrenia F20.0 [facility] [address] [address] Oct, [facility] [address] [address] Sep, Paranoid schizophrenia F20.0 ; Posttraum atic stress disorder F43.10 and Attention deficit hyperactivity disorder (ADHD), inattentive type, 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 [facility] [address] [address] Sep, [facility] [address] [address] Sep, Paranoid schizophrenia F20.0 ; Posttraum atic stress disorder F43.10 and Attention deficit hyperactivity disorder (ADHD), inattentive type, 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 [facility] [address] [address] Aug, Paranoid schizophrenia F20.0 [facility] [address] [address] Aug, [facility] [address] [address] Aug, Posttraumatic stress disorder F43.10 ; P aranoid schizophrenia F20.0 and Attention deficit hyperactivity disorder (ADHD), inattentive type, 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 [facility] [address] [address] Jul, Bipolar disorder, unspecified F31.9 [facility] [address] [address] Jul, [facility] [address] [address] Jun, [facility] [address] [address] Jun, Schizoaffective disorder, chronic 295.72 ; Posttraumatic stress disorder 309.81 and Attention deficit disorder of childhood without mention of hyperactivity 314.00 [facility] [address] [address] May, [facility] [address] [address] May, [facility] [address] [address] May, Schizoaffective disorder, chronic 295.72 ; Posttraumatic stress disorder 309.81 ; Attention deficit disorder of childhood without mention of hyperactivity 314.00 and Bipolar disorder, unspecified 296.80 [facility] [address] [address] Apr, Schizoaffective disorder, chronic 295.72 [facility] [address] [address] Apr, [facility] [address] [place] [id number] [place] [address] Apr, Schizoaffective disorder, chronic 295.72 ; Posttraumatic stress disorder 309.81 and Attention deficit disorder of childhood without mention of hyperactivity 314.00 [facility] [address] [place] [id number] [place] [address] Mar, Disorganized schizophrenia, 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 [facility] [address] [address] Mar, [facility] [address] [address] Mar, [facility] [address] [address] Mar, [facility] [address] [address] Mar, [facility] [address] [place] [id number] [place] [address] February, Schizoaffective disorder, chronic 295.72 [facility] [address] [address] February, [facility] [address] [address] February, Attention deficit disorder of childhood without mention of hyperactivity 314.00 ; Posttraumatic stress disorder 309.81 and Schizoaffective disorder, chronic 295.72 [facility] [id number] [place] [address] Jan, [facility] [id number] [place] [address] Jan, [facility] [address] [address] Jan, [facility] [id number] [place] [address] Dec, [facility] [id number] [place] [address] Dec, [facility] [place] [facility] [address] [id number] [place] [address] Dec, [facility] [place] [facility] [address] [id number] [place] [address] Dec, [facility] [place] [facility] [address] [id number] [place] [address] Dec, 2014 [facility] [place] [facility] [address] [id number] [place] [address] Dec, 2014 [facility] [place] [facility] [address] [id number] [facility] [place] [address] Dec, [facility] [place] [facility] [address] [id number] [place] [address] Dec, 2014 [facility] [place] [facility] [address] [id number] [place] [address] Nov, 2014 [facility] [place] [facility] [address] [id number] [place] [address] Nov, 2014 [facility] [place] [facility] [address] [id number] [place] [address] Nov, 2014 [facility] [place] [facility] [address] [id number] [place] [address] Nov, 2014 [facility] [place] [facility] [address] [id number] [place] [address] Nov, 2014 [facility] [place] [facility] [address] [id number] [place] [address] Nov, 2014 [facility] [place] [facility] [address] [id number] [place] [address] Nov, 2014 [facility] [place] [facility] [address] [id number] [place] [address] Nov, 2014 [facility] [place] [facility] [address] [id number] [place] [address] Nov, 2014 [facility] [place] [facility] [address] [id number] [place] [address] Nov, 2014 [facility] [place] [facility] [address] [id number] [place] [address] 29 Oct, 2014 [facility] [place] [facility] [address] [id number] [place] [address] 29 Oct, 2014 [facility] [place] [facility] [address] [id number] [place] [address] Oct, [facility] [place] [facility] [address] [id number] [place] [address] 15 Oct, 2014 [facility] [place] [facility] [address] [id number] [place] [address] 15 Oct, 2014 [facility] [place] [facility] [address] [id number] [place] [address] Oct, [facility] [place] [facility] [address] [id number] [place] [address] Oct, [facility] [place] [facility] [address] [id number] [place] [address] 17 Sep, 2014 [facility] [place] [facility] [address] [id number] [place] [address] 17 Sep, 2014 [facility] [place] [facility] [address] [id number] [place] [address] 15 Sep, 2014 [facility] [place] [facility] [address] [id number] [place] [address] 15 Sep, 2014 [facility] [place] [facility] [address] [id number] [place] [address] 20 Aug, 2014 [facility] [place] [facility] [address] [id number] [place] [address] 20 Aug, 2014 [facility] [place] [facility] [address] [id number] [place] [address] 14 Aug, 2014 [facility] [place] [facility] [address] [id number] [place] [address] 14 Aug, 2014 [facility] [place] [facility] [address] [id number] [place] [address] 14 Aug, 2014 [facility] [place] [facility] [address] [id number] [place] [address] Aug, [facility] [place] [facility] [address] [id number] [place] [address] 29 Jul, 2014 [facility] [place] [facility] [address] [id number] [place] [address] 29 Jul, 2014 [facility] [place] [facility] [address] [id number] [place] [address] Jul, [facility] [place] [facility] [address] [id number] [place] [address] 24 Jul, 2014 [facility] [place] [facility] [address] [id number] [place] [address] 15 Jul, 2014 [facility] [place] [facility] [address] [id number] [place] [address] 15 Jul, 2014 [facility] [place] [facility] [address] [id number] [place] [address] 27 Jun, 2013 [facility] [place] [facility] [address] [id number] [place] [address] 27 Sep, 2013 [facility] [place] [facility] [address] [id number] [place] [address] 26 Sep, 2013 [facility] [place] [facility] [address] [id number] [place] [address] 26 Sep, 2013 [facility] [place] [facility] [address] [id number] [place] [address] 26 Sep, 2013 [facility] [place] [facility] [address] [id number] [place] [address] 26 Sep, 2013 [facility] [place] [facility] [address] [id number] [place] [address] 16 Sep, 2013 [facility] [place] [facility] [address] [id number] [place] [address] 16 Sep, 2013 [facility] [place] [facility] [address] [id number] [place] [address] 16 Sep, 2013 [facility] [place] [facility] [address] [id number] [place] [address] 16 Sep, 2013 [facility] [place] [facility] [address] [id number] [place] [address] Jun, [facility] [place] [facility] [address] [id number] [facility] [place] [address] May, [facility] [place] [facility] [address] [facility] [id number] [place] [address] May, [facility] [place] [facility] [address] [facility] [id number] [facility] [place] [address] May, [facility] [place] [facility] [address] [facility] [id number] [place] [address] May, [facility] [place] [facility] [address] [facility] [id number] [place] [address] May, [facility] [place] [facility] [address] [facility] [id number] [place] [address] May, [facility] [place] [facility] [address] [id number] [facility] [place] [address] May, [facility] [place] [facility] [address] [id number] [facility] [place] [address] May, [facility] [place] [facility] [address] [facility] [id number] [facility] [place] [address] May, [facility] [place] [facility] [address] [facility] [id number] [facility] [place] [address] May, [facility] [place] [facility] [address] [facility] [id number] [place] [address] Apr, [facility] [place] [facility] [address] [id number] [facility] [place] [address] Apr, [facility] [place] [facility] [address] [facility] [id number] [facility] [place] [address] Apr, [facility] [place] [facility] [address] [id number] [place] [address] Apr, [facility] [place] [facility] [address] [facility] [id number] [facility] [place] [address] Apr, [facility] [place] [facility] [address] [id number] [facility] [place] [address] Apr, [facility] [place] [facility] [address] [facility] [id number] [facility] [place] [address] 17 Apr, 2014 [facility] [place] [facility] [address] [facility] [id number] [facility] [place] [address] 15 Apr, 2014 [facility] [place] [facility] [address] [facility] [id number] [place] [address] 15 Apr, 2014 [facility] [place] [facility] [address] [facility] [id number] [place] [address] Apr, [facility] [place] [facility] [address] [facility] [id number] [facility] [place] [address] Mar, [facility] [place] [facility] [address] [facility] [id number] [place] [address] Mar, [facility] [place] [facility] [address] [id number] [place] [address] 25 Mar, 2014 [facility] [place] [facility] [address] [id number] [place] [address] 24 Mar, 2014 [facility] [place] [facility] [address] [id number] [place] [address] 20 Mar, 2014 [facility] [place] [facility] [address] [facility] [id number] [place] [address] 18 Mar, 2014 [facility] [place] [facility] [address] [id number] [place] [address] 18 Mar, 2014 [facility] [place] [facility] [address] [id number] [place] [address] 16 Mar, 2014 [facility] [place] [facility] [address] [facility] [id number] [place] [address] 16 Mar, 2014 [facility] [place] [facility] [address] [facility] [id number] [place] [address] 13 Mar, 2014 [facility] [place] [facility] [address] [id number] [place] [address] 13 Mar, 2014 [facility] [place] [facility] [address] [facility] [id number] [place] [address] 11 Mar, 2014 [facility] [place] [facility] [address] [id number] [place] [address] Mar, [facility] [place] [facility] [address] [id number] [place] [address] Mar, [facility] [place] [facility] [address] [id number] [place] [address] Mar, [facility] [place] [facility] [address] [id number] [place] [address] Mar, [facility] [place] [facility] [address] [id number] [place] [address] Mar, [facility] [place] [facility] [address] [facility] [id number] [place] [address] Mar, [facility] [place] [facility] [address] [id number] [place] [address] Mar, [facility] [place] [facility] [address] [id number] [place] [address] Mar, [facility] [place] [facility] [address] [id number] [place] [address] February, [facility] [place] [facility] [address] [id number] [place] [address] February, [facility] [place] [facility] [address] [id number] [place] [address] February, [facility] [place] [facility] [address] [id number] [place] [address] February, [facility] [place] [facility] [address] [id number] [place] [address] February, [facility] [place] [facility] [address] [id number] [place] [address] February, [facility] [place] [facility] [address] [id number] [place] [address] February, [facility] [place] [facility] [address] [id number] [place] [address] February, [facility] [place] [facility] [address] [id number] [place] [address] February, [facility] [place] [facility] [address] [id number] [place] [address] February, [facility] [place] [facility] [address] [facility] [id number] [facility] [place] [address] February, [facility] [place] [facility] [address] [facility] [id number] [place] [address] February, [facility] [place] [facility] [address] [id number] [place] [address] February, [facility] [place] [facility] [address] [id number] [place] [address] February, [facility] [place] [facility] [address] [facility] [id number] [facility] [place] [address] February, [facility] [place] [facility] [address] [id number] [place] [address] February, [facility] [place] [facility] [address] [id number] [place] [address] February, [facility] [place] [facility] [address] [id number] [place] [address] February, [facility] [place] [facility] [address] [id number] [place] [address] February, [facility] [place] [facility] [address] [id number] [place] [address] February, [facility] [place] [facility] [address] [id number] [place] [address] February, [facility] [place] [facility] [address] [id number] [place] [address] Jan, [facility] [place] [facility] [address] [facility] [id number] [facility] [place] [address] Jan, [facility] [place] [facility] [address] [id number] [place] [address] Jan, [facility] [place] [facility] [address] [id number] [place] [address] Jan, [facility] [place] [facility] [address] [id number] [place] [address] Jan, [facility] [place] [facility] [address] [facility] [id number] [place] [address] 18 Jan, 2014 [facility] [place] [facility] [address] [facility] [id number] [place] [address] 10 Jan, 2014 [facility] [place] [facility] [address] [id number] [place] [address] 10 Jan, 2014 [facility] [place] [facility] [address] [id number] [place] [address] 21 Dec, 2013 [facility] [place] [facility] [address] [id number] [place] [address] 20 Dec, 2013 [facility] [place] [facility] [address] [id number] [place] [address] 20 Dec, 2013 [facility] [place] [facility] [address] [id number] [place] [address] 19 Dec, 2013 [facility] [place] [facility] [address] [id number] [place] [address] 19 Dec, 2013 [facility] [place] [facility] [address] [id number] [place] [address] 15 Dec, 2013 [facility] [place] [facility] [address] [id number] [place] [address] 15 Dec, 2013 [facility] [place] [facility] [address] [id number] [place] [address] 11 Dec, 2013 [facility] [place] [facility] [address] [id number] [place] [address] 10 Dec, 2013 [facility] [place] [facility] [address] [id number] [place] [address] 10 Dec, 2013 [facility] [place] [facility] [address] [facility] [id number] [place] [address] 18 Nov, 2013 [facility] [place] [facility] [address] [id number] [place] [address] 17 Nov, 2013 [facility] [place] [facility] [address] [id number] [place] [address] 17 Nov, 2013 [facility] [place] [facility] [address] [id number] [place] [address] Nov, [facility] [place] [facility] [address] [id number] [place] [address] Nov, [facility] [place] [facility] [address] [id number] [place] [address] Oct, [facility] [place] [facility] [address] [id number] [place] [address] Oct, [facility] [place] [facility] [address] [id number] [place] [address] Oct, [facility] [place] [facility] [address] [id number] [place] [address] Sep, [facility] [place] [facility] [address] [id number] [place] [address] Sep, [facility] [place] [facility] [address] [id number] [place] [address] Sep, [facility] [place] [facility] [address] [id number] [place] [address] Sep, [facility] [place] [facility] [address] [id number] [place] [address] Aug, [facility] [place] [facility] [address] [id number] [place] [address] Aug, [facility] [place] [facility] [address] [id number] [place] [address] Jul, [facility] [place] [facility] [address] [id number] [place] [address] Jul, [facility] [place] [facility] [address] [id number] [place] [address] Jul, [facility] [place] [facility] [address] [id number] [place] [address] Jul, [facility] [place] [facility] [address] [id number] [place] [address] Jul, [facility] [place] [facility] [address] [id number] [place] [address] Jun, [facility] [place] [facility] [address] [id number] [place] [address] 25 Jun, 2013 [facility] [place] [facility] [address] [id number] [place] [address] 19 Jun, 2013 [facility] [place] [facility] [address] [id number] [place] [address] 18 Jun, 2013 [facility] [place] [facility] [address] [id number] [place] [address] 16 Jun, 2013 [facility] [place] [facility] [address] [id number] [place] [address] 12 Jun, 2013 [facility] [place] [facility] [address] [id number] [place] [address] 11 Jun, 2013 [facility] [place] [facility] [address] [id number] [place] [address] May, [facility] [place] [facility] [address] [id number] [place] [address] May, [facility] [place] [facility] [address] [id number] [place] [address] Apr, [facility] [place] [facility] [address] [id number] [place] [address] Apr, [facility] [place] [facility] [address] [id number] [place] [address] Apr, [facility] [place] [facility] [address] [id number] [place] [address] Mar, [facility] [place] [facility] [address] [id number] [place] [address] Mar, [facility] [place] [facility] [address] [id number] [place] [address] February, [facility] [place] [facility] [address] [id number] [place] [address] February, [facility] [place] [facility] [address] [id number] [place] [address] February, [facility] [place] [facility] [address] [id number] [place] [address] February, [facility] [place] [facility] [address] [id number] [place] [address] Jan, [facility] [place] [facility] [address] [id number] [place] [address] 17 Jan, 2013 [facility] [place] [facility] [address] [id number] [place] [address] 16 Jan, 2013 [facility] [place] [facility] [address] [id number] [place] [address] 29 Dec, 2012 [facility] [place] [facility] [address] [id number] [place] [address] Dec, [facility] [address] [id number] [place] [address] Dec, [facility] [address] [id number] [place] [address] Dec, [facility] [address] [id number] [place] [address] Nov, [facility] [address] [id number] [place] [address] Nov, [facility] [address] [id number] [place] [address] Oct, [facility] [address] [id number] [place] [address] Oct, [facility] [address] [id number] [place] [address] Oct, [facility] [address] [id number] [place] [address] Oct, [facility] [address] [id number] [place] [address] Aug, [facility] [address] [id number] [place] [address] Aug, [facility] [address] [id number] [place] [address] Jun, [facility] [address] [id number] [place] [address] May, [facility] [address] [facility] [id number] [place] [address] May, [facility] [address] [id number] [place] [address] Apr, [facility] [address] [id number] [place] [address] Apr, [facility] [address] [id number] [place] [address] Apr, [facility] [address] [facility] [id number] [place] [address] Mar, [facility] [address] [id number] [place] [address] Mar, [facility] [address] [id number] [place] [address] Mar, [facility] [address] [id number] [place] [address] Mar, [facility] [address] [id number] [place] [address] Mar, [facility] [address] [id number] [place] [address] February, [facility] [address] [id number] [place] [address] February, [facility] [address] [id number] [place] [address] February, [facility] [address] [id number] [place] [address] February, [facility] [address] [id number] [place] [address] February, [facility] [address] [id number] [place] [address] February, [facility] [address] [id number] [place] [address] February, [facility] [address] [id number] [place] [address] 25 Jan, 2012 [facility] [address] [facility] [id number] [facility] [place] [address] 18 Jan, 2012 [facility] [address] [id number] [place] [address] 17 Jan, 2012 [facility] [address] [id number] [facility] [place] [address] 13 Jan, 2012 [facility] [address] [id number] [place] [address] 10 Jan, 2012 [facility] [address] [id number] [facility] [place] [address] 04 Jan, 2012 [facility] [address] [id number] [place] [address] 30 Dec, 2011 [facility] [address] [id number] [place] [address] 24 Dec, 2011 [facility] [address] [id number] [place] [address] 20 Dec, 2011 [facility] [address] [id number] [facility] [place] [address] 13 Dec, 2011 [facility] [address] [id number] [place] [address] 06 Dec, 2011 [facility] [address] [id number] [place] [address] 28 Nov, 2011 [facility] [address] [id number] [place] [address] 27 Nov, 2011 [facility] [address] [id number] [facility] [place] [address] 25 Nov, 2011 [facility] [address] [id number] [place] [address] 14 Nov, 2011 [facility] [address] [id number] [place] [address] 10 Nov, 2011 [facility] [address] [id number] [place] [address] Nov, [facility] [address] [id number] [place] [address] Oct, [facility] [address] [id number] [place] [address] Oct, [facility] [address] [id number] [place] [address] Oct, [facility] [address] [id number] [place] [address] Oct, [facility] [address] [id number] [place] [address] Oct, [facility] [address] [id number] [place] [address] Sep, [facility] [address] [id number] [place] [address] Sep, [facility] [address] [id number] [place] [address] Sep, [facility] [address] [id number] [place] [address] Sep, [facility] [address] [id number] [place] [address] Sep, [facility] [address] [id number] [place] [address] Sep, [facility] [address] [id number] [place] [address] Sep, [facility] [address] [facility] [id number] [place] [address] Sep, [facility] [address] [id number] [place] [address] Sep, [facility] [address] [id number] [place] [address] Aug, [facility] [address] [id number] [place] [address] Aug, [facility] [address] [id number] [place] [address] Aug, [facility] [address] [id number] [place] [address] Aug, [facility] [address] [id number] [place] [address] Aug, [facility] [address] [id number] [place] [address] Aug, [facility] [address] [id number] [place] [address] Aug, [facility] [address] [id number] [place] [address] Aug, [facility] [address] [id number] [place] [address] Aug, [facility] [address] [id number] [place] [address] Aug, [facility] [address] [id number] [place] [address] Aug, [facility] [address] [id number] [place] [address] Aug, [facility] [address] [id number] [place] [address] Jul, [facility] [address] [id number] [place] [address] Jul, [facility] [address] [id number] [place] [address] Jul, [facility] [address] [id number] [place] [address] Jul, [facility] [address] [id number] [place] [address] Jul, [facility] [address] [id number] [place] [address] Jul, [facility] [address] [id number] [place] [address] 18 Jul, 2011 [facility] [address] [id number] [place] [address] Jul, [facility] [id number] [place] [address] Jul, [facility] [id number] [place] [address] Jul, [facility] [address] [id number] [place] [address] Nov, [facility] [id number] [place] [address] Aug, [facility] [address] [address] Aug, [facility] [id number] [place] [address] Aug, [facility] [id number] [place] [address] Aug, [facility] [id number] [place] [address] Jul, IMMUNIZATIONS No Known Immunizations SOCIAL HISTORY [...] Suicide attempt by hanging 2015 Hospitalization History [facility] 01/30/2018-02/10/20 08 Hospitalization History [facility]/SI 05/04/18- Hospitalization History Michelle- [facility] - 5 days
--- OUTSIDE RECORDS SUMMARY | 2020-04-04 01:46 | XMS REPORT ---
Author Author Kaila Onofre Doctor Organization [facility] Address Unknown Phone Unavailable Care Team Providers Care Management Manager Name Role Phone Migration, Doctor Unavailable Unavailable PROBLEMS Type Condition ICD9-CM Code [id number] Code Onset Dates Condition S tatus SNOMED Code Problem Paranoid schizophrenia F20.0 Active 22251713 Problem Borderline personality disorder F60.3 Active 04613853 Problem Schizoaffective disorder, depressive type F25.1 Active 62578274 Problem Schizoaffective disorder, unspecified F25.9 Active 23089257 Problem Attention deficit hyperactivity disorder (ADHD), inattentive type, 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 44278820 Problem Posttraumatic stress disorder F43.10 Active 98498351 Problem High risk medication use Z79.899 Activ e [id number] ALLERGIES No Information ENCOUNTERS Encounter Location Date Diagnosis [place] [address] [address] Dec, [place] [address] [address] Nov, Paranoid schizophrenia F20.0 ; Attention deficit hyperactivity disorder (ADHD), inattentive type, 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 ; Posttraumatic stress disorder F43.10 and Borderline personality disorder F60.3 [place] [address] [address] Nov, [place] [address] [address] Oct, Paranoid schizophrenia F20.0 ; Attention deficit hyperactivity disorder (ADHD), inattentive type, 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 ; Posttraumatic stress disorder F43.10 and Borderline personality disorder F60.3 [place] [address] [address] Oct, [facility] [address] [address] Sep, Paranoid schizophrenia F20.0 ; Attention deficit hyperactivity disorder (ADHD), inattentive type, 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 [address] 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 ; Posttraumatic stress disorder F43.10 and Borderline personality disorder F60.3 [facility] [address] [address] Jul, [facility] [address] [address] Jun, Paranoid schizophrenia F20.0 ; Other katherin g term (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 Z79.899 ; Attention deficit hyperactivity disorder (ADHD), inattentive type, 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 ; Posttraumatic stress disorder F43.10 and Borderline personality disorder F60.3 [facility] [address] [address] Jun, Paranoid schizophrenia F20.0 ; Attention deficit hyperactivity disorder (ADHD), inattentive type, 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 ; Posttraumatic stress disorder F43.10 ; Borderline personality disorder F60.3 and 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 [place] [address] [address] Apr, Paranoid schizophrenia F20.0 ; Posttraum atic stress disorder F43.10 ; Attention deficit hyperactivity disorder (ADHD), inattentive type, 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 and Borderline personality disorder F60.3 [place] [address] [address] Apr, Paranoid schizophrenia F20.0 [place] [address] [address] Apr, Paranoid schizophrenia F20.0 ; Posttraum atic stress disorder F43.10 ; Attention deficit hyperactivity disorder (ADHD), inattentive type, 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 and Borderline personality disorder F60.3 [place] [address] [address] Mar, Paranoid schizophrenia F20.0 [place] [address] [address] Mar, Paranoid schizophrenia F20.0 ; Posttraum atic stress disorder F43.10 ; Attention deficit hyperactivity disorder (ADHD), inattentive type, 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 and Borderline personality disorder F60.3 [place] [address] [address] February, Paranoid schizophrenia F20.0 [place] [address] [address] Jan, Paranoid schizophrenia F20.0 ; Posttraum atic stress disorder F43.10 ; Attention deficit hyperactivity disorder (ADHD), inattentive type, 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 and Borderline personality disorder F60.3 [facility] [address] [address] Dec, Paranoid schizophrenia F20.0 ; Posttraum atic stress disorder F43.10 ; Attention deficit hyperactivity disorder (ADHD), inattentive type, 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 and Borderline personality disorder F60.3 [facility] [address] [address] Dec, Paranoid schizophrenia F20.0 ; Posttraum atic stress disorder F43.10 ; Attention deficit hyperactivity disorder (ADHD), inattentive type, 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 and Borderline personality disorder F60.3 [facility] [address] [address] Oct, Paranoid schizophrenia F20.0 ; Posttraum atic stress disorder F43.10 ; Attention deficit hyperactivity disorder (ADHD), inattentive type, 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 and Borderline personality disorder F60.3 [facility] [address] [address] Oct, Paranoid schizophrenia F20.0 ; Posttraum atic stress disorder F43.10 ; Attention deficit hyperactivity disorder (ADHD), inattentive type, 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 [address] 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 and Borderline personality disorder F60.3 [facility] [address] [id number] [place] [address] May, [facility] [address] [id number] [place] [address] May, Paranoid schizophrenia F20.0 [facility] [address] [place] [id number] [place] [address] May, Paranoid schizophrenia F20.0 ; Posttraum atic stress disorder F43.10 ; Attention deficit hyperactivity disorder (ADHD), inattentive type, 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 and Borderline personality disorder F60.3 [facility] [address] [place] [id number] [place] [address] Apr, [facility] [address] [place] [id number] [place] [address] Apr, Paranoid schizophrenia F20.0 ; Posttraum atic stress disorder F43.10 ; Attention deficit hyperactivity disorder (ADHD), inattentive type, 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 and Borderline personality disorder F60.3 [facility] [address] [place] [id number] [place] [address] Apr, [facility] [address] [address] Apr, Schizoaffective disorder, depressive typ e F25.1 and Borderline personality disorder F60.3 [facility] [address] [place] [id number] [place] [address] Apr, Paranoid schizophrenia F20.0 ; Posttraum atic stress disorder F43.10 ; Attention deficit hyperactivity disorder (ADHD), inattentive type, 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 and Borderline personality disorder F60.3 [facility] [address] [place] [id number] [place] [address] Apr, [facility] [address] [place] [id number] [place] [address] Apr, Paranoid schizophrenia F20.0 ; Posttraum atic stress disorder F43.10 ; Attention deficit hyperactivity disorder (ADHD), inattentive type, 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 and Borderline personality disorder F60.3 [facility] [address] [address] Apr, [facility] [address] [address] Mar, Paranoid schizophrenia F20.0 [facility] [address] [address] Mar, [facility] [address] [address] Mar, Paranoid schizophrenia F20.0 ; Posttraum atic stress disorder F43.10 ; Attention deficit hyperactivity disorder (ADHD), inattentive type, 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 and Borderline personality disorder F60.3 [facility] [address] [address] February, Paranoid schizophrenia F20.0 [facility] [address] [address] February, Paranoid schizophrenia F20.0 ; Posttraum atic stress disorder F43.10 ; Attention deficit hyperactivity disorder (ADHD), inattentive type, 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 and Borderline personality disorder F60.3 [facility] [address] [address] February, Paranoid schizophrenia F20.0 ; Posttraum atic stress disorder F43.10 ; Attention deficit hyperactivity disorder (ADHD), inattentive type, 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 and Borderline personality disorder F60.3 [facility] [address] [address] February, [facility] [address] [address] February, Paranoid schizophrenia F20.0 [facility] [address] [address] February, Paranoid schizophrenia F20.0 [facility] [address] [address] February, Paranoid schizophrenia F20.0 ; Posttraum atic stress disorder F43.10 ; Attention deficit hyperactivity disorder (ADHD), inattentive type, 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 and Borderline personality disorder F60.3 [facility] [address] [place] [id number] [place] [address] Jan, Paranoid schizophrenia F20.0 ; Posttraum atic stress disorder F43.10 ; Attention deficit hyperactivity disorder (ADHD), inattentive type, 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 and Borderline personality disorder F60.3 [facility] [address] [address] Jan, Paranoid schizophrenia F20.0 [facility] [address] [address] Jan, Paranoid schizophrenia F20.0 [facility] [address] [address] Jan, Paranoid schizophrenia F20.0 ; Posttraum atic stress disorder F43.10 ; Attention deficit hyperactivity disorder (ADHD), inattentive type, 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 and Borderline personality disorder F60.3 [facility] [address] [address] Dec, [facility] [address] [address] Nov, Paranoid schizophrenia F20.0 ; Posttraum atic stress disorder F43.10 ; Attention deficit hyperactivity disorder (ADHD), inattentive type, 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 and Borderline personality disorder F60.3 [facility] [address] [address] Nov, [facility] [address] [address] Oct, Paranoid schizophrenia F20.0 [facility] [address] [address] Oct, Paranoid schizophrenia F20.0 ; Posttraum atic stress disorder F43.10 ; Attention deficit hyperactivity disorder (ADHD), inattentive type, 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 ; Borderline personality disorder F60.3 and Other alf (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 Z79.899 [facility] [address] [address] Oct, [facility] [address] [address] Oct, [facility] [address] [address] Sep, [facility] [address] [address] Sep, Paranoid schizophrenia F20.0 ; Posttraum atic stress disorder F43.10 ; Attention deficit hyperactivity disorder (ADHD), inattentive type, 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 and Borderline personality disorder F60.3 [facility] [address] [address] Sep, Paranoid schizophrenia F20.0 [facility] [address] [address] Aug, Paranoid schizophrenia F20.0 ; Posttraum atic stress disorder F43.10 ; Attention deficit hyperactivity disorder (ADHD), inattentive type, 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 and Borderline personality disorder F60.3 [facility] [address] [address] Aug, Paranoid schizophrenia F20.0 ; Posttraum atic stress disorder F43.10 ; Attention deficit hyperactivity disorder (ADHD), inattentive type, 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 and Borderline personality disorder F60.3 [facility] [address] [address] Aug, [facility] [address] [place] [id number] Jul, Paranoid schizophrenia F20.0 ; Posttraum atic stress disorder F43.10 ; Attention deficit hyperactivity disorder (ADHD), inattentive type, 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 and Borderline personality disorder F60.3 [facility] [address] [address] Jul, Paranoid schizophrenia F20.0 [facility] [address] [address] Jul, Paranoid schizophrenia F20.0 ; Posttraum atic stress disorder F43.10 ; Attention deficit hyperactivity disorder (ADHD), inattentive type, 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 and Borderline personality disorder F60.3 [facility] [address] [address] Jun, Paranoid schizophrenia F20.0 ; Posttraum atic stress disorder F43.10 ; Attention deficit hyperactivity disorder (ADHD), inattentive type, 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 and Borderline personality disorder F60.3 [facility] [address] [address] May, Other alf (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 Z 79.899 [facility] [address] [address] May, [facility] [address] [address] May, [facility] [address] [address] May, Attention deficit hyperactivity disorder (ADHD), inattentive type, 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 [facility] [address] [address] May, [facility] [address] [address] May, Attention deficit hyperactivity disorder (ADHD), inattentive type, 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 [facility] [address] [address] May, Paranoid schizophrenia F20.0 ; Posttraum atic stress disorder F43.10 ; Attention deficit hyperactivity disorder (ADHD), inattentive type, 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 and Other alf (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 Z79.899 [facility] [address] [address] Apr, Paranoid schizophrenia F20.0 [facility] [address] [address] Apr, Paranoid schizophrenia F20.0 ; Posttraum atic stress disorder F43.10 and Attention deficit hyperactivity disorder (ADHD), inattentive type, 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 [facility] [address] [address] February, [facility] [address] [address] February, Paranoid schizophrenia F20.0 ; Posttraum atic stress disorder F43.10 and Attention deficit hyperactivity disorder (ADHD), inattentive type, 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 [facility] [address] [address] February, Paranoid schizophrenia F20.0 ; Posttraum atic stress disorder F43.10 and Attention deficit hyperactivity disorder (ADHD), inattentive type, 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 [facility] [address] [address] Jan, Paranoid schizophrenia F20.0 ; Posttraum atic stress disorder F43.10 and Attention deficit hyperactivity disorder (ADHD), inattentive type, 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 [facility] [address] [id number] Dec, Dental examination Z01.20 [facility] [address] [id number] Nov, Dental examination Z01.20 [facility] [address] [id number] Nov, Dental examination Z01.20 [facility] [address] [id number] Nov, Dental caries K02.9 [facility] [address] [address] 13 Nov, 2016 High risk medication use Z79.899 [facility] [address] [address] Nov, Paranoid schizophrenia F20.0 ; Posttraum atic stress disorder F43.10 ; Attention deficit hyperactivity disorder (ADHD), inattentive type, 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 and Borderline personality disorder in adult F60.3 [facility] [address] [place] [id number] [place] [id number] Oct, Dental caries K02.9 [facility] [address] [address] Sep, Paranoid schizophrenia F20.0 ; Posttraum atic stress disorder F43.10 and Attention deficit hyperactivity disorder (ADHD), inattentive type, 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 [facility] [address] [address] Jul, [facility] [address] [address] Jun, Paranoid schizophrenia F20.0 ; Posttraum atic stress disorder F43.10 and Attention deficit hyperactivity disorder (ADHD), inattentive type, 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 [facility] [address] [id number] 22 Sep, 2016 Dental examination Z01.20 [facility] [address] [address] Jun, [facility] [address] [address] May, Paranoid schizophrenia F20.0 [facility] [address] [address] May, Paranoid schizophrenia F20.0 ; Posttraum atic stress disorder F43.10 and Attention deficit hyperactivity disorder (ADHD), inattentive type, 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 [facility] [address] [address] May, [facility] [address] [address] May, Paranoid schizophrenia F20.0 [facility] [address] [address] May, [facility] [address] [address] May, Paranoid schizophrenia F20.0 [facility] [address] [address] May, Schizoaffective disorder, unspecified F2 5.9 [facility] [address] [address] May, Schizoaffective disorder, unspecified F2 5.9 [facility] [address] [address] May, [facility] [address] [address] May, Paranoid schizophrenia F20.0 [facility] [address] [address] May, Paranoid schizophrenia F20.0 ; Posttraum atic stress disorder F43.10 and Attention deficit hyperactivity disorder (ADHD), inattentive type, 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 [facility] [address] [address] Mar, [facility] [address] [address] Mar, Paranoid schizophrenia F20.0 ; Posttraum atic stress disorder F43.10 and Attention deficit hyperactivity disorder (ADHD), inattentive type, 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 [facility] [address] [address] Mar, Paranoid schizophrenia F20.0 [facility] [address] [address] Mar, Paranoid schizophrenia F20.0 ; Attention deficit hyperactivity disorder (ADHD), inattentive type, 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 and Posttraumatic stress disorder F43.10 [facility] [address] [address] Mar, [facility] [address] [address] Mar, Paranoid schizophrenia F20.0 ; Posttraum atic stress disorder F43.10 and Attention deficit hyperactivity disorder (ADHD), inattentive type, 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 [facility] [address] [address] February, [facility] [address] [address] February, [facility] [address] [address] February, [facility] [address] [address] February, [facility] [address] [address] Jan, Paranoid schizophrenia F20.0 [facility] [address] [id number] Jan, Dental examination Z01.20 [facility] [address] [id number] Jan, Dental caries K02.9 [facility] [address] [id number] Jan, Dental examination Z01.20 [facility] [address] [id number] Dec, Encounter for dental examination Z01.20 [facility] [address] [address] Dec, Paranoid schizophrenia F20.0 [facility] [address] [id number] Dec, Dental examination Z01.20 [facility] [address] [address] Dec, [facility] [address] [address] Dec, Paranoid schizophrenia F20.0 ; Posttraum atic stress disorder F43.10 and Attention deficit hyperactivity disorder (ADHD), inattentive type, 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 [facility] [address] [address] Nov, Schizoaffective disorder, unspecified F2 5.9 [facility] [address] [address] Oct, Paranoid schizophrenia F20.0 [facility] [address] [address] Oct, [facility] [address] [address] Sep, Paranoid schizophrenia F20.0 ; Posttraum atic stress disorder F43.10 and Attention deficit hyperactivity disorder (ADHD), inattentive type, 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 [facility] [address] [address] Sep, [facility] [address] [address] Sep, Paranoid schizophrenia F20.0 ; Posttraum atic stress disorder F43.10 and Attention deficit hyperactivity disorder (ADHD), inattentive type, 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 [facility] [address] [address] Aug, Paranoid schizophrenia F20.0 [facility] [address] [address] Aug, [facility] [address] [address] Aug, Posttraumatic stress disorder F43.10 ; P aranoid schizophrenia F20.0 and Attention deficit hyperactivity disorder (ADHD), inattentive type, 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 [facility] [address] [address] Jul, Bipolar disorder, unspecified F31.9 [facility] [address] [address] Jul, [facility] [address] [address] Jun, [facility] [address] [address] Jun, Schizoaffective disorder, chronic 295.72 ; Posttraumatic stress disorder 309.81 and Attention deficit disorder of childhood without mention of hyperactivity 314.00 [facility] [address] [address] May, [facility] [address] [address] May, [facility] [address] [address] May, Schizoaffective disorder, chronic 295.72 ; Posttraumatic stress disorder 309.81 ; Attention deficit disorder of childhood without mention of hyperactivity 314.00 and Bipolar disorder, unspecified 296.80 [facility] [address] [address] Apr, Schizoaffective disorder, chronic 295.72 [facility] [address] [address] Apr, [facility] [id number] [place] [address] Apr, Schizoaffective disorder, chronic 295.72 ; Posttraumatic stress disorder 309.81 and Attention deficit disorder of childhood without mention of hyperactivity 314.00 [facility] [id number] [place] [address] Mar, Disorganized schizophrenia, 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 [facility] [address] [address] Mar, [facility] [address] [address] Mar, [facility] [address] [address] Mar, [facility] [address] [address] Mar, [facility] [id number] [place] [address] February, Schizoaffective disorder, chronic 295.72 [facility] [address] [address] February, [facility] [address] [address] February, Attention deficit disorder of childhood without mention of hyperactivity 314.00 ; Posttraumatic stress disorder 309.81 and Schizoaffective disorder, chronic 295.72 [facility] [id number] [place] [address] Jan, [facility] [id number] [place] [address] Jan, [facility] [address] [address] Jan, [facility] [id number] [place] [address] Dec, [facility] [id number] [place] [address] Dec, [facility] [place] [facility] [address] [id number] [place] [address] Dec, [facility] [place] [facility] [address] [id number] [place] [address] Dec, [facility] [place] [facility] [address] [id number] [place] [address] Dec, 2014 [facility] [place] [facility] [address] [id number] [place] [address] Dec, 2014 [facility] [place] [facility] [address] [id number] [facility] [place] [address] Dec, [facility] [place] [facility] [address] [id number] [place] [address] Dec, 2014 [facility] [place] [facility] [address] [id number] [place] [address] Nov, 2014 [facility] [place] [facility] [address] [id number] [place] [address] Nov, 2014 [facility] [place] [facility] [address] [id number] [place] [address] Nov, 2014 [facility] [place] [facility] [address] [id number] [place] [address] Nov, 2014 [facility] [place] [facility] [address] [id number] [place] [address] Nov, 2014 [facility] [place] [facility] [address] [id number] [place] [address] Nov, 2014 [facility] [place] [facility] [address] [id number] [place] [address] Nov, 2014 [facility] [place] [facility] [address] [id number] [place] [address] Nov, 2014 [facility] [place] [facility] [address] [id number] [place] [address] Nov, 2014 [facility] [place] [facility] [address] [id number] [place] [address] Nov, 2014 [facility] [place] [facility] [address] [id number] [place] [address] 29 Oct, 2014 [facility] [place] [facility] [address] [id number] [place] [address] 29 Oct, 2014 [facility] [place] [facility] [address] [id number] [place] [address] Oct, [facility] [place] [facility] [address] [id number] [place] [address] 15 Oct, 2014 [facility] [place] [facility] [address] [id number] [place] [address] 15 Oct, 2014 [facility] [place] [facility] [address] [id number] [place] [address] Oct, [facility] [place] [facility] [address] [id number] [place] [address] Oct, [facility] [place] [facility] [address] [id number] [place] [address] 17 Sep, 2014 [facility] [place] [facility] [address] [id number] [place] [address] 17 Sep, 2014 [facility] [place] [facility] [address] [id number] [place] [address] 15 Sep, 2014 [facility] [place] [facility] [address] [id number] [place] [address] 15 Sep, 2014 [facility] [place] [facility] [address] [id number] [place] [address] 20 Aug, 2014 [facility] [place] [facility] [address] [id number] [place] [address] 20 Aug, 2014 [facility] [place] [facility] [address] [id number] [place] [address] 14 Aug, 2014 [facility] [place] [facility] [address] [id number] [place] [address] 14 Aug, 2014 [facility] [place] [facility] [address] [id number] [place] [address] 14 Aug, 2014 [facility] [place] [facility] [address] [id number] [place] [address] Aug, [facility] [place] [facility] [address] [id number] [place] [address] 29 Jul, 2014 [facility] [place] [facility] [address] [id number] [place] [address] 29 Jul, 2014 [facility] [place] [facility] [address] [id number] [place] [address] Jul, [facility] [place] [facility] [address] [id number] [place] [address] 24 Jul, 2014 [facility] [place] [facility] [address] [id number] [place] [address] 15 Jul, 2014 [facility] [place] [facility] [address] [id number] [place] [address] 15 Jul, 2014 [facility] [place] [facility] [address] [id number] [place] [address] 27 Jun, 2013 [facility] [place] [facility] [address] [id number] [place] [address] 27 Sep, 2013 [facility] [place] [facility] [address] [id number] [place] [address] 26 Sep, 2013 [facility] [place] [facility] [address] [id number] [place] [address] 26 Sep, 2013 [facility] [place] [facility] [address] [id number] [place] [address] 26 Sep, 2013 [facility] [place] [facility] [address] [id number] [place] [address] 26 Sep, 2013 [facility] [place] [facility] [address] [id number] [place] [address] 16 Sep, 2013 [facility] [place] [facility] [address] [id number] [place] [address] 16 Sep, 2013 [facility] [place] [facility] [address] [id number] [place] [address] 16 Sep, 2013 [facility] [place] [facility] [address] [id number] [place] [address] 16 Sep, 2013 [facility] [place] [facility] [address] [id number] [place] [address] Jun, [facility] [place] [facility] [address] [id number] [facility] [place] [address] May, [facility] [place] [facility] [address] [facility] [id number] [place] [address] May, [facility] [place] [facility] [address] [facility] [id number] [facility] [place] [address] May, [facility] [place] [facility] [address] [facility] [id number] [place] [address] May, [facility] [place] [facility] [address] [facility] [id number] [place] [address] May, [facility] [place] [facility] [address] [facility] [id number] [place] [address] May, [facility] [place] [facility] [address] [id number] [facility] [place] [address] May, [facility] [place] [facility] [address] [id number] [facility] [place] [address] May, [facility] [place] [facility] [address] [facility] [id number] [facility] [place] [address] May, [facility] [place] [facility] [address] [facility] [id number] [facility] [place] [address] May, [facility] [place] [facility] [address] [facility] [id number] [place] [address] Apr, [facility] [place] [facility] [address] [id number] [facility] [place] [address] Apr, [facility] [place] [facility] [address] [facility] [id number] [facility] [place] [address] Apr, [facility] [place] [facility] [address] [id number] [place] [address] Apr, [facility] [place] [facility] [address] [facility] [id number] [facility] [place] [address] Apr, [facility] [place] [facility] [address] [id number] [facility] [place] [address] Apr, [facility] [place] [facility] [address] [facility] [id number] [facility] [place] [address] 17 Apr, 2014 [facility] [place] [facility] [address] [facility] [id number] [facility] [place] [address] 15 Apr, 2014 [facility] [place] [facility] [address] [facility] [id number] [place] [address] 15 Apr, 2014 [facility] [place] [facility] [address] [facility] [id number] [place] [address] Apr, [facility] [place] [facility] [address] [facility] [id number] [facility] [place] [address] Mar, [facility] [place] [facility] [address] [facility] [id number] [place] [address] Mar, [facility] [place] [facility] [address] [id number] [place] [address] 25 Mar, 2014 [facility] [place] [facility] [address] [id number] [place] [address] 24 Mar, 2014 [facility] [place] [facility] [address] [id number] [place] [address] 20 Mar, 2014 [facility] [place] [facility] [address] [facility] [id number] [place] [address] 18 Mar, 2014 [facility] [place] [facility] [address] [id number] [place] [address] 18 Mar, 2014 [facility] [place] [facility] [address] [id number] [place] [address] 16 Mar, 2014 [facility] [place] [facility] [address] [facility] [id number] [place] [address] 16 Mar, 2014 [facility] [place] [facility] [address] [facility] [id number] [place] [address] 13 Mar, 2014 [facility] [place] [facility] [address] [id number] [place] [address] 13 Mar, 2014 [facility] [place] [facility] [address] [facility] [id number] [place] [address] 11 Mar, 2014 [facility] [place] [facility] [address] [id number] [place] [address] Mar, [facility] [place] [facility] [address] [id number] [place] [address] Mar, [facility] [place] [facility] [address] [id number] [place] [address] Mar, [facility] [place] [facility] [address] [id number] [place] [address] Mar, [facility] [place] [facility] [address] [id number] [place] [address] Mar, [facility] [place] [facility] [address] [facility] [id number] [place] [address] Mar, [facility] [place] [facility] [address] [id number] [place] [address] Mar, [facility] [place] [facility] [address] [id number] [place] [address] Mar, [facility] [place] [facility] [address] [id number] [place] [address] February, [facility] [place] [facility] [address] [id number] [place] [address] February, [facility] [place] [facility] [address] [id number] [place] [address] February, [facility] [place] [facility] [address] [id number] [place] [address] February, [facility] [place] [facility] [address] [id number] [place] [address] February, [facility] [place] [facility] [address] [id number] [place] [address] February, [facility] [place] [facility] [address] [id number] [place] [address] February, [facility] [place] [facility] [address] [id number] [place] [address] February, [facility] [place] [facility] [address] [id number] [place] [address] February, [facility] [place] [facility] [address] [id number] [place] [address] February, [facility] [place] [facility] [address] [facility] [id number] [facility] [place] [address] February, [facility] [place] [facility] [address] [facility] [id number] [place] [address] February, [facility] [place] [facility] [address] [id number] [place] [address] February, [facility] [place] [facility] [address] [id number] [place] [address] February, [facility] [place] [facility] [address] [facility] [id number] [facility] [place] [address] February, [facility] [place] [facility] [address] [id number] [place] [address] February, [facility] [place] [facility] [address] [id number] [place] [address] February, [facility] [place] [facility] [address] [id number] [place] [address] February, [facility] [place] [facility] [address] [id number] [place] [address] February, [facility] [place] [facility] [address] [id number] [place] [address] February, [facility] [place] [facility] [address] [id number] [place] [address] February, [facility] [place] [facility] [address] [id number] [place] [address] Jan, [facility] [place] [facility] [address] [facility] [id number] [facility] [place] [address] Jan, [facility] [place] [facility] [address] [id number] [place] [address] Jan, [facility] [place] [facility] [address] [id number] [place] [address] Jan, [facility] [place] [facility] [address] [id number] [place] [address] Jan, [facility] [place] [facility] [address] [facility] [id number] [place] [address] 18 Jan, 2014 [facility] [place] [facility] [address] [facility] [id number] [place] [address] 10 Jan, 2014 [facility] [place] [facility] [address] [id number] [place] [address] 10 Jan, 2014 [facility] [place] [facility] [address] [id number] [place] [address] 21 Dec, 2013 [facility] [place] [facility] [address] [id number] [place] [address] 20 Dec, 2013 [facility] [place] [facility] [address] [id number] [place] [address] 20 Dec, 2013 [facility] [place] [facility] [address] [id number] [place] [address] 19 Dec, 2013 [facility] [place] [facility] [address] [id number] [place] [address] 19 Dec, 2013 [facility] [place] [facility] [address] [id number] [place] [address] 15 Dec, 2013 [facility] [place] [facility] [address] [id number] [place] [address] 15 Dec, 2013 [facility] [place] [facility] [address] [id number] [place] [address] 11 Dec, 2013 [facility] [place] [facility] [address] [id number] [place] [address] 10 Dec, 2013 [facility] [place] [facility] [address] [id number] [place] [address] 10 Dec, 2013 [facility] [place] [facility] [address] [facility] [id number] [place] [address] 18 Nov, 2013 [facility] [place] [facility] [address] [id number] [place] [address] 17 Nov, 2013 [facility] [place] [facility] [address] [id number] [place] [address] 17 Nov, 2013 [facility] [place] [facility] [address] [id number] [place] [address] Nov, [facility] [place] [facility] [address] [id number] [place] [address] Nov, [facility] [place] [facility] [address] [id number] [place] [address] Oct, [facility] [place] [facility] [address] [id number] [place] [address] Oct, [facility] [place] [facility] [address] [id number] [place] [address] Oct, [facility] [place] [facility] [address] [id number] [place] [address] Sep, [facility] [place] [facility] [address] [id number] [place] [address] Sep, [facility] [place] [facility] [address] [id number] [place] [address] Sep, [facility] [place] [facility] [address] [id number] [place] [address] Sep, [facility] [place] [facility] [address] [id number] [place] [address] Aug, [facility] [place] [facility] [address] [id number] [place] [address] Aug, [facility] [place] [facility] [address] [id number] [place] [address] Jul, [facility] [place] [facility] [address] [id number] [place] [address] Jul, [facility] [place] [facility] [address] [id number] [place] [address] Jul, [facility] [place] [facility] [address] [id number] [place] [address] Jul, [facility] [place] [facility] [address] [id number] [place] [address] Jul, [facility] [place] [facility] [address] [id number] [place] [address] Jun, [facility] [place] [facility] [address] [id number] [place] [address] 25 Jun, 2013 [facility] [place] [facility] [address] [id number] [place] [address] 19 Jun, 2013 [facility] [place] [address] [id number] [place] [address] 18 Jun, 2013 [facility] [address] [id number] [place] [address] 16 Jun, 2013 [facility] [address] [id number] [place] [address] 12 Jun, 2013 [facility] [address] [id number] [place] [address] 11 Jun, 2013 [facility] [address] [id number] [place] [address] May, [facility] [address] [id number] [place] [address] May, [facility] [address] [id number] [place] [address] Apr, [facility] [address] [id number] [place] [address] Apr, [facility] [address] [id number] [place] [address] Apr, [facility] [address] [id number] [place] [address] Mar, [facility] [address] [id number] [place] [address] Mar, [facility] [address] [id number] [place] [address] February, [facility] [address] [id number] [place] [address] February, [facility] [address] [id number] [place] [address] February, [facility] [address] [id number] [place] [address] February, [facility] [address] [id number] [place] [address] Jan, [facility] [address] [id number] [place] [address] 17 Jan, 2013 [facility] [address] [id number] [place] [address] 16 Jan, 2013 [facility] [address] [id number] [place] [address] 29 Dec, 2012 [facility] [address] [id number] [place] [address] Dec, [facility] [address] [id number] [place] [address] Dec, [facility] [address] [id number] [place] [address] Dec, [facility] [address] [id number] [place] [address] Nov, [facility] [address] [id number] [place] [address] Nov, [facility] [address] [id number] [place] [address] Oct, [facility] [address] [id number] [place] [address] Oct, [facility] [address] [id number] [place] [address] Oct, [facility] [address] [id number] [place] [address] Oct, [facility] [address] [id number] [place] [address] Aug, [facility] [address] [id number] [place] [address] Aug, [facility] [address] [id number] [place] [address] Jun, [facility] [address] [id number] [place] [address] May, [facility] [address] [facility] [id number] [place] [address] May, [facility] [address] [id number] [place] [address] Apr, [facility] [address] [id number] [place] [address] Apr, [facility] [address] [id number] [place] [address] Apr, [facility] [address] [facility] [id number] [place] [address] Mar, [facility] [address] [id number] [place] [address] Mar, [facility] [address] [id number] [place] [address] Mar, [facility] [address] [id number] [place] [address] Mar, [facility] [address] [id number] [place] [address] Mar, [facility] [address] [id number] [place] [address] February, [facility] [address] [id number] [place] [address] February, [facility] [address] [id number] [place] [address] February, [facility] [address] [id number] [place] [address] February, [facility] [address] [id number] [place] [address] February, [facility] [address] [id number] [place] [address] February, [facility] [address] [id number] [place] [address] February, [facility] [address] [id number] [place] [address] 25 Jan, 2012 [facility] [address] [facility] [id number] [facility] [place] [address] 18 Jan, 2012 [facility] [address] [id number] [place] [address] 17 Jan, 2012 [facility] [address] [id number] [facility] [place] [address] 13 Jan, 2012 [facility] [address] [id number] [place] [address] 10 Jan, 2012 [facility] [address] [id number] [facility] [place] [address] 04 Jan, 2012 [facility] [address] [id number] [place] [address] 30 Dec, 2011 [facility] [address] [id number] [place] [address] 24 Dec, 2011 [facility] [address] [id number] [place] [address] 20 Dec, 2011 [facility] [address] [id number] [facility] [place] [address] 13 Dec, 2011 [facility] [address] [id number] [place] [address] 06 Dec, 2011 [facility] [address] [id number] [place] [address] 28 Nov, 2011 [facility] [address] [id number] [place] [address] 27 Nov, 2011 [facility] [address] [id number] [facility] [place] [address] 25 Nov, 2011 [facility] [address] [id number] [place] [address] 14 Nov, 2011 [facility] [address] [id number] [place] [address] 10 Nov, 2011 [facility] [address] [id number] [place] [address] Nov, [facility] [address] [id number] [place] [address] Oct, [facility] [address] [id number] [place] [address] Oct, [facility] [address] [id number] [place] [address] Oct, [facility] [address] [id number] [place] [address] Oct, [facility] [address] [id number] [place] [address] Oct, [facility] [address] [id number] [place] [address] Sep, [facility] [address] [id number] [place] [address] Sep, [facility] [address] [id number] [place] [address] Sep, [facility] [address] [id number] [place] [address] Sep, [facility] [address] [id number] [place] [address] Sep, [facility] [address] [id number] [place] [address] Sep, [facility] [address] [id number] [place] [address] Sep, [facility] [address] [id number] [place] [address] Sep, [facility] [address] [id number] [place] [address] Sep, [facility] [address] [id number] [place] [address] Aug, [facility] [address] [id number] [place] [address] Aug, [facility] [address] [id number] [place] [address] Aug, [facility] [address] [id number] [place] [address] Aug, [facility] [address] [id number] [place] [address] Aug, [facility] [address] [id number] [place] [address] Aug, [facility] [address] [id number] [place] [address] Aug, [facility] [address] [id number] [place] [address] Aug, [facility] [address] [id number] [place] [address] Aug, [facility] [address] [id number] [place] [address] Aug, [facility] [address] [id number] [place] [address] Aug, [facility] [address] [id number] [place] [address] Aug, [facility] [address] [id number] [place] [address] Jul, [facility] [address] [id number] [place] [address] Jul, [facility] [address] [id number] [place] [address] Jul, [facility] [address] [id number] [place] [address] Jul, [facility] [address] [id number] [place] [address] Jul, [facility] [address] [id number] [place] [address] Jul, [facility] [address] [id number] [place] [address] 18 Jul, 2011 [facility] [address] [id number] [place] [address] Jul, [facility] [id number] [place] [address] Jul, [facility] [id number] [place] [address] Jul, [facility] [id number] [place] [address] Nov, [facility] [address] [address] Aug, [facility] [address] [address] Aug, [facility] [id number] [place] [address] Aug, [facility] [id number] [place] [address] Aug, [facility] [id number] [place] [address] Jul, IMMUNIZATIONS No Known Immunizations SOCIAL HISTORY Never Assessed REASON FOR VISIT PLAN OF CARE VITAL SIGNS MEDICATIONS Unknown Medications RESULTS No Results PROCEDURES Procedure Date Ordered Result Body Site THER/PROPH/DIAG INJ, SC/IM January 10, 2014 INSTRUCTIONS MEDICATIONS ADMINISTERED No Known Medications MEDICAL [...] attempt by hanging 2015 Hospitalization History [facility] 01/30/2018-02/10/20 08 [facility]ization [facility] 05/04[facility]18[facility]
--- OUTSIDE RECORDS SUMMARY | 2020-04-04 01:46 | XMS REPORT ---
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 Name Role Phone TINY Kramer Unavailable PROBLEMS Type Condition ICD9-CM Code [id number] Code Onset Dates Condition S tatus SNOMED Code Problem Paranoid schizophrenia F20.0 Active 26386054 Problem Borderline personality disorder F60.3 Active 11801559 Problem Schizoaffective disorder, depressive type F25.1 Active 02741778 Problem Schizoaffective disorder, unspecified F25.9 Active 79653265 Problem Attention deficit hyperactivity disorder (ADHD), inattentive type, 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 92205901 Problem Posttraumatic stress disorder F43.10 Active 27610266 Problem High risk medication use Z79.899 Activ e [id number] ALLERGIES No Information ENCOUNTERS Encounter Location Date Diagnosis [place] [address] [address] Dec, [place] [address] [address] Nov, Paranoid schizophrenia F20.0 ; Attention deficit hyperactivity disorder (ADHD), inattentive type, 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 ; Posttraumatic stress disorder F43.10 and Borderline personality disorder F60.3 [facility] [address] [address] Nov, [place] [address] [address] Oct, Paranoid schizophrenia F20.0 ; Attention deficit hyperactivity disorder (ADHD), inattentive type, 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 ; Posttraumatic stress disorder F43.10 and Borderline personality disorder F60.3 [place] [address] [address] Oct, [facility] [address] [address] Sep, Paranoid schizophrenia F20.0 ; Attention deficit hyperactivity disorder (ADHD), inattentive type, 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 ; Posttraumatic stress disorder F43.10 and Borderline personality disorder F60.3 [facility] [address] [address] Aug, Paranoid schizophrenia F20.0 ; Attention deficit hyperactivity disorder (ADHD), inattentive type, 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 ; Posttraumatic stress disorder F43.10 and Borderline personality disorder F60.3 [place] [address] [address] Aug, [facility] [address] [facility] [id number] [place] [address] Aug, Acute bronchitis, unspecifie d organism J20.9 [facility] [address] [address] Aug, [facility] [address] [address] Aug, [place] [address] [address] Jul, Paranoid schizophrenia F20.0 ; Attention deficit hyperactivity disorder (ADHD), inattentive type, 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 ; Posttraumatic stress disorder F43.10 and Borderline personality disorder F60.3 [facility] [address] [address] Jul, [facility] [address] [address] Jun, Paranoid schizophrenia F20.0 ; Other katherin g term (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 Z79.899 ; Attention deficit hyperactivity disorder (ADHD), inattentive type, 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 ; Posttraumatic stress disorder F43.10 and Borderline personality disorder F60.3 [facility] [address] [address] Jun, Paranoid schizophrenia F20.0 ; Attention deficit hyperactivity disorder (ADHD), inattentive type, 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 ; Posttraumatic stress disorder F43.10 ; Borderline personality disorder F60.3 and 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 [facility] [address] [address] Apr, Paranoid schizophrenia F20.0 ; Posttraum atic stress disorder F43.10 ; Attention deficit hyperactivity disorder (ADHD), inattentive type, 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 and Borderline personality disorder F60.3 [facility] [address] [address] Apr, Paranoid schizophrenia F20.0 [facility] [address] [address] Apr, Paranoid schizophrenia F20.0 ; Posttraum atic stress disorder F43.10 ; Attention deficit hyperactivity disorder (ADHD), inattentive type, 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 and Borderline personality disorder F60.3 [facility] [address] [address] Mar, Paranoid schizophrenia F20.0 [facility] [address] [address] Mar, Paranoid schizophrenia F20.0 ; Posttraum atic stress disorder F43.10 ; Attention deficit hyperactivity disorder (ADHD), inattentive type, 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 and Borderline personality disorder F60.3 [facility] [address] [address] February, Paranoid schizophrenia F20.0 [facility] [address] [address] Jan, Paranoid schizophrenia F20.0 ; Posttraum atic stress disorder F43.10 ; Attention deficit hyperactivity disorder (ADHD), inattentive type, 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 and Borderline personality disorder F60.3 [facility] [address] [address] Dec, Paranoid schizophrenia F20.0 ; Posttraum atic stress disorder F43.10 ; Attention deficit hyperactivity disorder (ADHD), inattentive type, 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 and Borderline personality disorder F60.3 [facility] [address] [address] Dec, Paranoid schizophrenia F20.0 ; Posttraum atic stress disorder F43.10 ; Attention deficit hyperactivity disorder (ADHD), inattentive type, 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 and Borderline personality disorder F60.3 [facility] [address] [address] Oct, Paranoid schizophrenia F20.0 ; Posttraum atic stress disorder F43.10 ; Attention deficit hyperactivity disorder (ADHD), inattentive type, 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 and Borderline personality disorder F60.3 [facility] [address] [address] Oct, Paranoid schizophrenia F20.0 ; Posttraum atic stress disorder F43.10 ; Attention deficit hyperactivity disorder (ADHD), inattentive type, 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 and Borderline personality disorder F60.3 [place] [address] [address] Aug, [place] [address] [address] Aug, Paranoid schizophrenia F20.0 ; Posttraum atic stress disorder F43.10 ; Attention deficit hyperactivity disorder (ADHD), inattentive type, 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 and Borderline personality disorder F60.3 [facility] [address] [facility] [id number] [address] [place] [address] Jul, Dry skin dermatitis L85.3 [facility] [address] [place] [id number] [place] [address] Jul, [facility] [address] [address] Jul, Paranoid schizophrenia F20.0 [facility] [address] [address] May, Paranoid schizophrenia F20.0 ; Posttraum atic stress disorder F43.10 ; Attention deficit hyperactivity disorder (ADHD), inattentive type, 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 and Borderline personality disorder F60.3 [facility] [address] [address] May, [facility] [address] [address] May, Paranoid schizophrenia F20.0 [facility] [address] [address] May, Paranoid schizophrenia F20.0 ; Posttraum atic stress disorder F43.10 ; Attention deficit hyperactivity disorder (ADHD), inattentive type, 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 and Borderline personality disorder F60.3 [facility] [address] [address] Apr, [facility] [address] [address] Apr, Paranoid schizophrenia F20.0 ; Posttraum atic stress disorder F43.10 ; Attention deficit hyperactivity disorder (ADHD), inattentive type, 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 and Borderline personality disorder F60.3 [facility] [address] [address] Apr, [facility] [address] [address] Apr, Schizoaffective disorder, depressive typ e F25.1 and Borderline personality disorder F60.3 [facility] [address] [address] Apr, Paranoid schizophrenia F20.0 ; Posttraum atic stress disorder F43.10 ; Attention deficit hyperactivity disorder (ADHD), inattentive type, 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 and Borderline personality disorder F60.3 [facility] [address] [address] Apr, [facility] [address] [address] Apr, Paranoid schizophrenia F20.0 ; Posttraum atic stress disorder F43.10 ; Attention deficit hyperactivity disorder (ADHD), inattentive type, 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 and Borderline personality disorder F60.3 [facility] [address] [place] [id number] [place] [address] Apr, [facility] [address] [address] Mar, Paranoid schizophrenia F20.0 [facility] [address] [address] Mar, [facility] [address] [address] Mar, Paranoid schizophrenia F20.0 ; Posttraum atic stress disorder F43.10 ; Attention deficit hyperactivity disorder (ADHD), inattentive type, 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 and Borderline personality disorder F60.3 [facility] [address] [address] February, Paranoid schizophrenia F20.0 [facility] [address] [address] February, Paranoid schizophrenia F20.0 ; Posttraum atic stress disorder F43.10 ; Attention deficit hyperactivity disorder (ADHD), inattentive type, 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 and Borderline personality disorder F60.3 [facility] [address] [address] February, Paranoid schizophrenia F20.0 ; Posttraum atic stress disorder F43.10 ; Attention deficit hyperactivity disorder (ADHD), inattentive type, 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 and Borderline personality disorder F60.3 [facility] [address] [address] February, [facility] [address] [address] February, Paranoid schizophrenia F20.0 [facility] [address] [address] February, Paranoid schizophrenia F20.0 [facility] [address] [address] February, Paranoid schizophrenia F20.0 ; Posttraum atic stress disorder F43.10 ; Attention deficit hyperactivity disorder (ADHD), inattentive type, 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 and Borderline personality disorder F60.3 [facility] [address] [address] Jan, Paranoid schizophrenia F20.0 ; Posttraum atic stress disorder F43.10 ; Attention deficit hyperactivity disorder (ADHD), inattentive type, 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 and Borderline personality disorder F60.3 [facility] [address] [address] Jan, Paranoid schizophrenia F20.0 [facility] [address] [address] Jan, Paranoid schizophrenia F20.0 [facility] [address] [address] Jan, Paranoid schizophrenia F20.0 ; Posttraum atic stress disorder F43.10 ; Attention deficit hyperactivity disorder (ADHD), inattentive type, 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 and Borderline personality disorder F60.3 [facility] [address] [address] Dec, [facility] [address] [address] Nov, Paranoid schizophrenia F20.0 ; Posttraum atic stress disorder F43.10 ; Attention deficit hyperactivity disorder (ADHD), inattentive type, 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 and Borderline personality disorder F60.3 [facility] [address] [address] Nov, [facility] [address] [address] Oct, Paranoid schizophrenia F20.0 [facility] [address] [place] [address] Oct, Paranoid schizophrenia F20.0 ; Posttraum atic stress disorder F43.10 ; Attention deficit hyperactivity disorder (ADHD), inattentive type, 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 ; Borderline personality disorder F60.3 and 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 [facility] [address] [address] Oct, [facility] [address] [address] Oct, [facility] [address] [address] Sep, [facility] [address] [address] Sep, Paranoid schizophrenia F20.0 ; Posttraum atic stress disorder F43.10 ; Attention deficit hyperactivity disorder (ADHD), inattentive type, 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 and Borderline personality disorder F60.3 [facility] [address] [address] Sep, Paranoid schizophrenia F20.0 [facility] [address] [address] Aug, Paranoid schizophrenia F20.0 ; Posttraum atic stress disorder F43.10 ; Attention deficit hyperactivity disorder (ADHD), inattentive type, 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 and Borderline personality disorder F60.3 [facility] [address] [address] Aug, Paranoid schizophrenia F20.0 ; Posttraum atic stress disorder F43.10 ; Attention deficit hyperactivity disorder (ADHD), inattentive type, 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 and Borderline personality disorder F60.3 [facility] [address] [address] Aug, [facility] [address] [address] Jul, Paranoid schizophrenia F20.0 ; Posttraum atic stress disorder F43.10 ; Attention deficit hyperactivity disorder (ADHD), inattentive type, 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 and Borderline personality disorder F60.3 [facility] [address] [place] [id number] [place] [address] Jul, Paranoid schizophrenia F20.0 [facility] [address] [facility] [place] [address] Jul, Paranoid schizophrenia F20.0 ; Posttraum atic stress disorder F43.10 ; Attention deficit hyperactivity disorder (ADHD), inattentive type, 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 and Borderline personality disorder F60.3 [facility] [address] [place] [id number] [place] [address] Jun, Paranoid schizophrenia F20.0 ; Posttraum atic stress disorder F43.10 ; Attention deficit hyperactivity disorder (ADHD), inattentive type, 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 and Borderline personality disorder F60.3 [facility] [address] [address] May, Other mcfp (current) drug therapy Z 79.899 [facility] [address] [address] May, [facility] [address] [address] May, [facility] [address] [address] May, Attention deficit hyperactivity disorder (ADHD), inattentive type, 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 [facility] [address] [place] [id number] [place] [address] May, [facility] [address] [place] [id number] [place] [address] May, Attention deficit hyperactivity disorder (ADHD), inattentive type, 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 [facility] [address] [place] [id number] [place] [address] May, Paranoid schizophrenia F20.0 ; Posttraum atic stress disorder F43.10 ; Attention deficit hyperactivity disorder (ADHD), inattentive type, 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 and Other mcfp (current) drug therapy Z79.899 [facility] [address] [address] Apr, Paranoid schizophrenia F20.0 [facility] [address] [place] [id number] Apr, Paranoid schizophrenia F20.0 ; Posttraum atic stress disorder F43.10 and Attention deficit hyperactivity disorder (ADHD), inattentive type, 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 [facility] [address] [address] February, [facility] [address] [address] February, Paranoid schizophrenia F20.0 ; Posttraum atic stress disorder F43.10 and Attention deficit hyperactivity disorder (ADHD), inattentive type, 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 [facility] [address] [address] February, Paranoid schizophrenia F20.0 ; Posttraum atic stress disorder F43.10 and Attention deficit hyperactivity disorder (ADHD), inattentive type, 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 [facility] [address] [address] Jan, Paranoid schizophrenia F20.0 ; Posttraum atic stress disorder F43.10 and Attention deficit hyperactivity disorder (ADHD), inattentive type, 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 [facility] [address] [id number] Dec, Dental examination Z01.20 [facility] [address] [id number] Nov, Dental examination Z01.20 [facility] [address] [id number] Nov, Dental examination Z01.20 [facility] [address] [id number] Nov, Dental caries K02.9 [facility] [address] [address] 13 Nov, 2016 High risk medication use Z79.899 [facility] [address] [address] Nov, Paranoid schizophrenia F20.0 ; Posttraum atic stress disorder F43.10 ; Attention deficit hyperactivity disorder (ADHD), inattentive type, 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 and Borderline personality disorder in adult F60.3 [facility] [address] [id number] [place] [id number] Oct, Dental caries K02.9 [facility] [address] [address] Sep, Paranoid schizophrenia F20.0 ; Posttraum atic stress disorder F43.10 and Attention deficit hyperactivity disorder (ADHD), inattentive type, 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 [facility] [address] [address] Aug, Paranoid schizophrenia F20.0 ; Posttraum atic stress disorder F43.10 and Attention deficit hyperactivity disorder (ADHD), inattentive type, 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 [facility] [address] [facility] [id number] [place] [address] Aug, Strep throat J02.0 and Cough R05 [facility] [address] [address] Aug, [facility] [address] [address] Jul, Paranoid schizophrenia F20.0 ; Posttraum atic stress disorder F43.10 and Attention deficit hyperactivity disorder (ADHD), inattentive type, 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 [facility] [address] [address] Jul, [facility] [address] [address] Jun, Paranoid schizophrenia F20.0 ; Posttraum atic stress disorder F43.10 and Attention deficit hyperactivity disorder (ADHD), inattentive type, 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 [facility] [address] [id number] [place] [id number] Jun, Dental examination Z01.20 [facility] [address] [place] [id number] [place] [address] Jun, [facility] [address] [address] May, Paranoid schizophrenia F20.0 [facility] [address] [address] May, Paranoid schizophrenia F20.0 ; Posttraum atic stress disorder F43.10 and Attention deficit hyperactivity disorder (ADHD), inattentive type, 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 [facility] [address] [address] May, [facility] [address] [address] May, Paranoid schizophrenia F20.0 [facility] [address] [address] May, [facility] [address] [address] May, Paranoid schizophrenia F20.0 [facility] [address] [address] May, Schizoaffective disorder, unspecified F2 5.9 [facility] [address] [address] May, Schizoaffective disorder, unspecified F2 5.9 [facility] [address] [address] May, [facility] [address] [address] May, Paranoid schizophrenia F20.0 [facility] [address] [address] May, Paranoid schizophrenia F20.0 ; Posttraum atic stress disorder F43.10 and Attention deficit hyperactivity disorder (ADHD), inattentive type, 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 [facility] [address] [address] Mar, [facility] [address] [address] Mar, Paranoid schizophrenia F20.0 ; Posttraum atic stress disorder F43.10 and Attention deficit hyperactivity disorder (ADHD), inattentive type, 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 [facility] [address] [address] Mar, Paranoid schizophrenia F20.0 [facility] [address] [address] Mar, Paranoid schizophrenia F20.0 ; Attention deficit hyperactivity disorder (ADHD), inattentive type, 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 and Posttraumatic stress disorder F43.10 [facility] [address] [address] Mar, [facility] [address] [address] Mar, Paranoid schizophrenia F20.0 ; Posttraum atic stress disorder F43.10 and Attention deficit hyperactivity disorder (ADHD), inattentive type, 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 [facility] [address] [place] [id number] [place] [address] February, [facility] [address] [address] February, [facility] [address] [place] [id number] [place] [address] February, [facility] [address] [address] February, [facility] [address] [address] Jan, Paranoid schizophrenia F20.0 [facility] [address] [id number] [place] [id number] Jan, Dental examination Z01.20 [facility] [address] [id number] Jan, Dental caries K02.9 [facility] [address] [id number] Jan, Dental examination Z01.20 [facility] [address] [id number] Dec, Encounter for dental examination Z01.20 [facility] [address] [address] Dec, Paranoid schizophrenia F20.0 [facility] [address] [id number] Dec, Dental examination Z01.20 [facility] [address] [address] Dec, [facility] [address] [address] Dec, Paranoid schizophrenia F20.0 ; Posttraum atic stress disorder F43.10 and Attention deficit hyperactivity disorder (ADHD), inattentive type, 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 [facility] [address] [address] Nov, Schizoaffective disorder, unspecified F2 5.9 [facility] [address] [address] Oct, Paranoid schizophrenia F20.0 [facility] [address] [address] Oct, [facility] [address] [address] Sep, Paranoid schizophrenia F20.0 ; Posttraum atic stress disorder F43.10 and Attention deficit hyperactivity disorder (ADHD), inattentive type, 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 [facility] [address] [address] Sep, [facility] [address] [address] Sep, Paranoid schizophrenia F20.0 ; Posttraum atic stress disorder F43.10 and Attention deficit hyperactivity disorder (ADHD), inattentive type, 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 [facility] [address] [address] Aug, Paranoid schizophrenia F20.0 [facility] [address] [address] Aug, [facility] [address] [address] Aug, Posttraumatic stress disorder F43.10 ; P aranoid schizophrenia F20.0 and Attention deficit hyperactivity disorder (ADHD), inattentive type, 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 [facility] [address] [address] Jul, Bipolar disorder, unspecified F31.9 [place] [address] [address] Jul, [facility] [address] [address] Jun, [facility] [address] [address] Jun, Schizoaffective disorder, chronic 295.72 ; Posttraumatic stress disorder 309.81 and Attention deficit disorder of childhood without mention of hyperactivity 314.00 [facility] [address] [address] May, [facility] [address] [address] May, [facility] [address] [address] May, Schizoaffective disorder, chronic 295.72 ; Posttraumatic stress disorder 309.81 ; Attention deficit disorder of childhood without mention of hyperactivity 314.00 and Bipolar disorder, unspecified 296.80 [facility] [address] [address] Apr, Schizoaffective disorder, chronic 295.72 [facility] [address] [place] [id number] [place] [address] Apr, [facility] [address] [place] [id number] [place] [address] Apr, Schizoaffective disorder, chronic 295.72 ; Posttraumatic stress disorder 309.81 and Attention deficit disorder of childhood without mention of hyperactivity 314.00 [facility] [address] [place] [id number] [place] [address] Mar, Disorganized schizophrenia, 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 [facility] [address] [address] Mar, [facility] [address] [address] Mar, [facility] [address] [address] Mar, [facility] [address] [address] Mar, [facility] [address] [address] February, Schizoaffective disorder, chronic 295.72 [facility] [address] [address] February, [facility] [address] [address] February, Attention deficit disorder of childhood without mention of hyperactivity 314.00 ; Posttraumatic stress disorder 309.81 and Schizoaffective disorder, chronic 295.72 [facility] [id number] [place] [address] Jan, [facility] [id number] [place] [address] Jan, [facility] [address] [address] Jan, [facility] [address] [address] Dec, [facility] [address] [facility] [id number] [place] [address] Dec, [facility] [address] [facility] [id number] [place] [address] Dec, [facility] [address] [facility] [id number] [place] [address] Dec, [facility] [address] [id number] [place] [address] Dec, [facility] [address] [facility] [id number] [place] [address] Dec, [facility] [address] [id number] [place] [address] Dec, [facility] [address] [id number] [place] [address] Dec, [facility] [address] [id number] [place] [address] Nov, 2014 [facility] [address] [id number] [place] [address] Nov, 2014 [facility] [address] [id number] [place] [address] Nov, 2014 [facility] [address] [id number] [place] [address] Nov, 2014 [facility] [address] [id number] [place] [address] Nov, 2014 [facility] [address] [id number] [place] [address] Nov, 2014 [facility] [address] [id number] [place] [address] Nov, 2014 [facility] [address] [id number] [place] [address] Nov, 2014 [facility] [address] [id number] [place] [address] Nov, 2014 [facility] [address] [id number] [place] [address] Nov, [facility] [address] [id number] [place] [address] Oct, [facility] [address] [id number] [place] [address] Oct, [facility] [address] [id number] [place] [address] Oct, [facility] [address] [id number] [place] [address] Oct, [facility] [address] [id number] [place] [address] Oct, [facility] [address] [id number] [place] [address] Oct, [facility] [address] [id number] [place] [address] Oct, [facility] [address] [id number] [place] [address] 17 Sep, 2014 [facility] [address] [id number] [place] [address] 17 Sep, 2014 [facility] [address] [id number] [place] [address] 15 Sep, 2014 [facility] [address] [id number] [place] [address] 15 Sep, 2014 [facility] [address] [id number] [place] [address] 20 Aug, 2014 [facility] [address] [id number] [place] [address] 20 Aug, 2014 [facility] [id number] [place] [address] 14 Aug, 2014 [facility] [address] [id number] [place] [address] 14 Aug, 2014 [facility] [address] [id number] [place] [address] 14 Aug, 2014 [facility] [address] [facility] [id number] [place] [address] 14 Aug, 2014 [facility] [address] [facility] [id number] [place] [address] 29 Jul, 2014 [facility] [address] [id number] [place] [address] 29 Jul, 2014 [facility] [address] [id number] [place] [address] 24 Jul, 2014 [facility] [address] [facility] [id number] [place] [address] 24 Jul, 2014 [facility] [address] [id number] [place] [address] 15 Jul, 2014 [facility] [address] [id number] [place] [address] 15 Jul, 2014 [facility] [address] [id number] [place] [address] 27 Sep, 2013 [facility] [address] [id number] [place] [address] 27 Sep, 2013 [facility] [address] [id number] [place] [address] 26 Sep, 2013 [facility] [address] [id number] [place] [address] 26 Sep, 2013 [facility] [address] [id number] [place] [address] 26 Sep, 2013 [facility] [address] [id number] [place] [address] 26 Sep, 2013 [facility] [address] [id number] [place] [address] 16 Sep, 2013 [facility] [address] [id number] [place] [address] 16 Sep, 2013 [facility] [address] [id number] [place] [address] 16 Sep, 2013 [facility] [address] [id number] [place] [address] Jun, [facility] [address] [id number] [place] [address] Jun, [facility] [address] [facility] [id number] [place] [address] May, [facility] [address] [id number] [place] [address] May, [facility] [address] [id number] [place] [address] May, [facility] [address] [id number] [place] [address] May, [facility] [address] [id number] [place] [address] May, [facility] [address] [id number] [place] [address] May, [facility] [address] [id number] [place] [address] May, [facility] [address] [id number] [place] [address] May, [facility] [address] [id number] [place] [address] May, [facility] [address] [id number] [place] [address] May, [facility] [address] [id number] [place] [address] Apr, [facility] [address] [id number] [place] [address] Apr, [facility] [address] [id number] [place] [address] Apr, [facility] [address] [id number] [place] [address] Apr, [facility] [address] [id number] [place] [address] Apr, [facility] [address] [facility] [id number] [place] [address] 24 Apr, 2014 [facility] [address] [facility] [id number] [place] [address] Apr, [facility] [address] [id number] [place] [address] Apr, [facility] [address] [id number] [place] [address] Apr, [facility] [address] [facility] [id number] [place] [address] Apr, [facility] [address] [id number] [place] [address] Mar, [facility] [address] [id number] [place] [address] Mar, [facility] [address] [id number] [place] [address] Mar, [facility] [address] [id number] [place] [address] 24 Mar, 2014 [facility] [address] [id number] [place] [address] Mar, [facility] [address] [id number] [place] [address] 18 Mar, 2014 [facility] [address] [id number] [place] [address] 18 Mar, 2014 [facility] [address] [id number] [place] [address] 16 Mar, 2014 [facility] [address] [facility] [id number] [place] [address] 16 Mar, 2014 [facility] [address] [id number] [place] [address] 13 Mar, 2014 [facility] [address] [id number] [place] [address] 13 Mar, 2014 [facility] [address] [id number] [place] [address] Mar, [facility] [address] [facility] [id number] [place] [address] Mar, [facility] [address] [facility] [id number] [place] [address] Mar, [facility] [address] [id number] [place] [address] Mar, [facility] [address] [id number] [place] [address] Mar, [facility] [address] [facility] [id number] [place] [address] Mar, [facility] [address] [id number] [place] [address] Mar, [facility] [address] [id number] [place] [address] Mar, [facility] [address] [id number] [place] [address] Mar, [facility] [address] [id number] [place] [address] February, [facility] [address] [id number] [place] [address] February, [facility] [address] [id number] [place] [address] February, [facility] [address] [id number] [place] [address] February, [facility] [address] [facility] [id number] [place] [address] February, [facility] [address] [facility] [id number] [place] [address] February, [facility] [address] [id number] [place] [address] February, [facility] [address] [id number] [place] [address] February, [facility] [address] [id number] [place] [address] February, [facility] [address] [id number] [place] [address] February, [facility] [address] [id number] [place] [address] February, [facility] [address] [id number] [place] [address] February, [facility] [address] [id number] [place] [address] February, [facility] [address] [id number] [place] [address] February, [facility] [address] [id number] [place] [address] February, [facility] [address] [id number] [place] [address] February, [facility] [address] [id number] [place] [address] February, [facility] [address] [id number] [place] [address] February, [facility] [address] [id number] [place] [address] February, [facility] [address] [id number] [place] [address] February, [facility] [address] [id number] [place] [address] February, [facility] [address] [id number] [place] [address] Jan, [facility] [address] [id number] [place] [address] Jan, [facility] [address] [id number] [place] [address] Jan, [facility] [address] [id number] [place] [address] Jan, [facility] [address] [id number] [place] [address] 18 Jan, 2014 [facility] [address] [id number] [place] [address] 18 Jan, 2014 [facility] [address] [id number] [place] [address] 10 Jan, 2014 [facility] [address] [id number] [place] [address] 10 Jan, 2014 [facility] [address] [id number] [place] [address] 21 Dec, 2013 [facility] [address] [id number] [place] [address] 20 Dec, 2013 [facility] [address] [id number] [place] [address] 20 Dec, 2013 [facility] [address] [id number] [place] [address] 19 Dec, 2013 [facility] [address] [id number] [place] [address] 19 Dec, 2013 [facility] [address] [id number] [place] [address] 15 Dec, 2013 [facility] [address] [id number] [place] [address] 15 Dec, 2013 [facility] [address] [id number] [place] [address] 11 Dec, 2013 [facility] [address] [id number] [place] [address] 10 Dec, 2013 [facility] [address] [id number] [place] [address] 10 Dec, 2013 [facility] [address] [id number] [place] [address] 18 Nov, 2013 [facility] [address] [id number] [place] [address] 17 Nov, 2013 [facility] [address] [id number] [place] [address] Nov, [facility] [address] [id number] [place] [address] Nov, [facility] [address] [id number] [place] [address] Nov, [facility] [address] [id number] [place] [address] Oct, [facility] [address] [id number] [place] [address] Oct, [facility] [address] [id number] [place] [address] Oct, [facility] [address] [id number] [place] [address] Sep, [facility] [id number] [place] [address] Sep, [facility] [address] [id number] [place] [address] Sep, [facility] [address] [id number] [place] [address] Sep, [facility] [id number] [place] [address] Aug, [facility] [id number] [place] [address] Aug, [facility] [id number] [place] [address] Jul, [facility] [address] [id number] [place] [address] Jul, [facility] [id number] [place] [address] Jul, [facility] [address] [id number] [place] [address] Jul, [facility] [id number] [place] [address] Jul, [facility] [address] [id number] [place] [address] 25 Jun, 2012 [facility] [address] [id number] [place] [address] 25 Jun, 2012 [facility] [address] [facility] [id number] [place] [address] 19 Jun, 2013 [facility] [address] [id number] [place] [address] 18 Jun, 2013 [facility] [address] [facility] [id number] [place] [address] 16 Jun, 2013 [facility] [address] [id number] [place] [address] 12 Jun, 2013 [facility] [address] [id number] [place] [address] 11 Jun, 2013 [facility] [address] [id number] [place] [address] May, [facility] [address] [id number] [place] [address] May, [facility] [address] [id number] [place] [address] Apr, [facility] [address] [id number] [place] [address] Apr, [facility] [address] [id number] [place] [address] Apr, [facility] [address] [id number] [place] [address] Mar, [facility] [address] [id number] [place] [address] Mar, [facility] [address] [id number] [place] [address] February, [facility] [address] [id number] [place] [address] February, [facility] [address] [id number] [place] [address] February, [facility] [address] [id number] [place] [address] February, [facility] [address] [id number] [place] [address] Jan, [facility] [address] [id number] [place] [address] Jan, [facility] [address] [id number] [place] [address] Jan, [facility] [address] [id number] [place] [address] Dec, [facility] [address] [id number] [place] [address] Dec, [facility] [address] [id number] [place] [address] Dec[facility] [address] [id number] [place] [address] Dec, [facility] [address] [id number] [place] [address] Nov, [facility] [address] [id number] [place] [address] Nov, [facility] [address] [id number] [place] [address] Oct, [facility] [address] [id number] [place] [address] Oct, [facility] [address] [id number] [place] [address] Oct, [facility] [address] [id number] [place] [address] Oct, [facility] [address] [id number] [place] [address] Aug, [facility] [address] [id number] [place] [address] Aug, [facility] [address] [id number] [place] [address] Jun, [facility] [address] [facility] [id number] [place] [address] May, [facility] [address] [id number] [place] [address] May, [facility] [address] [id number] [place] [address] Apr, [facility] [address] [id number] [place] [address] Apr, [facility] [address] [facility] [id number] [place] [address] Apr, [facility] [address] [id number] [place] [address] Mar, [facility] [address] [id number] [place] [address] Mar, [facility] [address] [id number] [place] [address] Mar, [facility] [address] [id number] [place] [address] Mar, [facility] [address] [id number] [place] [address] Mar, [facility] [address] [id number] [place] [address] February, [facility] [address] [id number] [place] [address] February, [facility] [address] [id number] [place] [address] February, [facility] [address] [id number] [place] [address] February, [facility] [address] [id number] [place] [address] February, [facility] [address] [id number] [place] [address] February, [facility] [address] [id number] [place] [address] February, [facility] [address] [id number] [place] [address] 25 Jan, 2012 [facility] [address] [id number] [place] [address] 18 Jan, 2012 [facility] [address] [id number] [place] [address] 17 Jan, 2012 [facility] [address] [id number] [place] [address] 13 Jan, 2012 [facility] [address] [id number] [place] [address] 10 Jan, 2012 [facility] [address] [id number] [place] [address] 04 Jan, 2012 [facility] [address] [id number] [place] [address] 30 Dec, 2011 [facility] [address] [id number] [place] [address] 24 Dec, 2011 [facility] [address] [id number] [place] [address] 20 Dec, 2011 [facility] [address] [id number] [place] [address] 13 Dec, 2011 [facility] [address] [id number] [place] [address] 06 Dec, 2011 [facility] [address] [id number] [place] [address] 28 Nov, 2011 [facility] [address] [id number] [place] [address] 27 Nov, 2011 [facility] [address] [id number] [place] [address] 25 Nov, 2011 [facility] [address] [id number] [place] [address] 14 Nov, 2011 [facility] [address] [id number] [place] [address] Nov, [facility] [address] [id number] [place] [address] Nov, [facility] [address] [id number] [place] [address] Oct, [facility] [address] [id number] [place] [address] Oct, [facility] [address] [id number] [place] [address] Oct, [facility] [address] [id number] [place] [address] Oct, [facility] [address] [id number] [place] [address] Oct, [facility] [address] [id number] [place] [address] Sep, [facility] [address] [id number] [place] [address] Sep, [facility] [address] [id number] [place] [address] Sep, [facility] [address] [id number] [place] [address] Sep, [facility] [address] [id number] [place] [address] Sep, [facility] [address] [id number] [place] [address] Sep, [facility] [address] [id number] [place] [address] Sep, [facility] [address] [id number] [place] [address] Sep, [facility] [address] [id number] [place] [address] 05 Sep, 2011 [facility] [address] [id number] [place] [address] Aug, [facility] [address] [id number] [place] [address] Aug, [facility] [address] [id number] [place] [address] Aug, [facility] [address] [id number] [place] [address] Aug, [facility] [address] [id number] [place] [address] Aug, [facility] [address] [id number] [place] [address] Aug, [facility] [address] [id number] [place] [address] Aug, [facility] [address] [id number] [place] [address] Aug, [facility] [address] [id number] [place] [address] Aug, [facility] [address] [id number] [place] [address] Aug, [facility] [address] [id number] [place] [address] Aug, [facility] [address] [id number] [place] [address] Aug, [facility] [address] [id number] [place] [address] Jul, [facility] [address] [id number] [place] [address] Jul, [facility] [address] [id number] [place] [address] Jul, [facility] [id number] [place] [address] Jul, [facility] [address] [id number] [place] [address] Jul, [facility] [address] [id number] [place] [address] Jul, [facility] [address] [facility] [id number] [place] [address] Jul, [facility] [id number] [place] [address] Jul, [facility] [id number] [place] [address] Jul, [facility] [id number] [place] [address] Jul, [facility] [id number] [place] [address] Nov, [facility] [address] [address] Aug, [facility] [id number] [place] [address] Aug, [facility] [id number] [place] [address] Aug, [facility] [id number] [place] [address] Aug, [facility] [id number] [place] [address] Jul, IMMUNIZATIONS No Known Immunizations SOCIAL HISTORY [...] attempt by hanging 2015 Hospitalization History [facility] 01/30/2018-02/10/20 08 Hospitalization History [facility] 05/04/18- [facility]
--- OUTSIDE RECORDS SUMMARY | 2020-04-04 01:47 | XMS REPORT ---
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 Name Role Phone Migration, Doctor Unavailable Unavailable PROBLEMS Type Condition ICD9-CM Code FVD72-ZY Code Onset Dates Condition S tatus SNOMED Code Problem Paranoid schizophrenia F20.0 Active 95373781 Problem Borderline personality disorder F60.3 Active 28656909 Problem Schizoaffective disorder, depressive type F25.1 Active 38037756 Problem Schizoaffective disorder, unspecified F25.9 Active 62448935 Problem Attention deficit hyperactivity disorder (ADHD), inattentive type, 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 26823004 Problem Posttraumatic stress disorder F43.10 Active 15751106 Problem High risk medication use Z79.899 Activ e [id number] ALLERGIES No Information ENCOUNTERS Encounter Location Date Diagnosis [place] [address] [address] Nov, [place] [address] [address] Nov, [place] [address] [address] Oct, Paranoid schizophrenia F20.0 ; Attention deficit hyperactivity disorder (ADHD), inattentive type, 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 ; Posttraumatic stress disorder F43.10 and Borderline personality disorder F60.3 [place] [address] [address] Oct, [place] [address] [address] Sep, Paranoid schizophrenia F20.0 ; Attention deficit hyperactivity disorder (ADHD), inattentive type, 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 ; Posttraumatic stress disorder F43.10 and Borderline personality disorder F60.3 [place] [address] [address] Aug, Paranoid schizophrenia F20.0 ; Attention deficit hyperactivity disorder (ADHD), inattentive type, 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 ; Posttraumatic stress disorder F43.10 and Borderline personality disorder F60.3 [facility] [address] [address] Aug, [facility] [address] [facility] [id number] [address] [place] [address] Aug, Acute bronchitis, unspecifie d organism J20.9 [facility] [address] [address] Aug, [facility] [address] [address] Aug, [facility] [address] [address] Jul, Paranoid schizophrenia F20.0 ; Attention deficit hyperactivity disorder (ADHD), inattentive type, 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 ; Posttraumatic stress disorder F43.10 and Borderline personality disorder F60.3 [facility] [address] [address] Jul, [facility] [address] [address] Jun, Paranoid schizophrenia F20.0 ; Other katherin g term (current) 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 Z79.899 ; Attention deficit hyperactivity disorder (ADHD), inattentive type, 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 ; Posttraumatic stress disorder F43.10 and Borderline personality disorder F60.3 [facility] [address] [address] Jun, Paranoid schizophrenia F20.0 ; Attention deficit hyperactivity disorder (ADHD), inattentive type, 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 ; Posttraumatic stress disorder F43.10 ; Borderline personality disorder F60.3 and Other longterm (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 Z79.899 [facility] [address] [address] Apr, Paranoid schizophrenia F20.0 ; Posttraum atic stress disorder F43.10 ; Attention deficit hyperactivity disorder (ADHD), inattentive type, 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 and Borderline personality disorder F60.3 [facility] [address] [address] Apr, Paranoid schizophrenia F20.0 [facility] [address] [address] Apr, Paranoid schizophrenia F20.0 ; Posttraum atic stress disorder F43.10 ; Attention deficit hyperactivity disorder (ADHD), inattentive type, 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 and Borderline personality disorder F60.3 [facility] [address] [address] Mar, Paranoid schizophrenia F20.0 [facility] [address] [address] Mar, Paranoid schizophrenia F20.0 ; Posttraum atic stress disorder F43.10 ; Attention deficit hyperactivity disorder (ADHD), inattentive type, 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 and Borderline personality disorder F60.3 [facility] [address] [address] February, Paranoid schizophrenia F20.0 [facility] [address] [address] Jan, Paranoid schizophrenia F20.0 ; Posttraum atic stress disorder F43.10 ; Attention deficit hyperactivity disorder (ADHD), inattentive type, 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 and Borderline personality disorder F60.3 [facility] [address] [address] Dec, Paranoid schizophrenia F20.0 ; Posttraum atic stress disorder F43.10 ; Attention deficit hyperactivity disorder (ADHD), inattentive type, 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 and Borderline personality disorder F60.3 [facility] [address] [address] Dec, Paranoid schizophrenia F20.0 ; Posttraum atic stress disorder F43.10 ; Attention deficit hyperactivity disorder (ADHD), inattentive type, 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 and Borderline personality disorder F60.3 [facility] [address] [place] [id number] [place] [address] Oct, Paranoid schizophrenia F20.0 ; Posttraum atic stress disorder F43.10 ; Attention deficit hyperactivity disorder (ADHD), inattentive type, 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 and Borderline personality disorder F60.3 [facility] [address] [address] Oct, Paranoid schizophrenia F20.0 ; Posttraum atic stress disorder F43.10 ; Attention deficit hyperactivity disorder (ADHD), inattentive type, 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 and Borderline personality disorder F60.3 [facility] [address] [address] Aug, [facility] [address] [address] Aug, Paranoid schizophrenia F20.0 ; Posttraum atic stress disorder F43.10 ; Attention deficit hyperactivity disorder (ADHD), inattentive type, 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 and Borderline personality disorder F60.3 [facility] [address] [facility] [id number] [address] [place] [address] Jul, Dry skin dermatitis L85.3 [facility] [address] [place] [id number] [place] [address] Jul, [facility] [address] [address] Jul, Paranoid schizophrenia F20.0 [facility] [address] [place] [id number] [place] [address] May, Paranoid schizophrenia F20.0 ; Posttraum atic stress disorder F43.10 ; Attention deficit hyperactivity disorder (ADHD), inattentive type, 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 and Borderline personality disorder F60.3 [facility] [address] [id number] [place] [address] May, [facility] [address] [address] May, Paranoid schizophrenia F20.0 [facility] [address] [address] May, Paranoid schizophrenia F20.0 ; Posttraum atic stress disorder F43.10 ; Attention deficit hyperactivity disorder (ADHD), inattentive type, 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 and Borderline personality disorder F60.3 [facility] [address] [address] Apr, [facility] [address] [address] Apr, Paranoid schizophrenia F20.0 ; Posttraum atic stress disorder F43.10 ; Attention deficit hyperactivity disorder (ADHD), inattentive type, 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 and Borderline personality disorder F60.3 [facility] [address] [address] Apr, [facility] [address] [address] Apr, Schizoaffective disorder, depressive typ e F25.1 and Borderline personality disorder F60.3 [facility] [address] [address] Apr, Paranoid schizophrenia F20.0 ; Posttraum atic stress disorder F43.10 ; Attention deficit hyperactivity disorder (ADHD), inattentive type, 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 and Borderline personality disorder F60.3 [facility] [address] [address] Apr, [facility] [address] [address] Apr, Paranoid schizophrenia F20.0 ; Posttraum atic stress disorder F43.10 ; Attention deficit hyperactivity disorder (ADHD), inattentive type, 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 and Borderline personality disorder F60.3 [facility] [address] [address] Apr, [facility] [address] [address] Mar, Paranoid schizophrenia F20.0 [facility] [address] [address] Mar, [facility] [address] [address] Mar, Paranoid schizophrenia F20.0 ; Posttraum atic stress disorder F43.10 ; Attention deficit hyperactivity disorder (ADHD), inattentive type, 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 and Borderline personality disorder F60.3 [facility] [address] [address] February, Paranoid schizophrenia F20.0 [facility] [address] [address] February, Paranoid schizophrenia F20.0 ; Posttraum atic stress disorder F43.10 ; Attention deficit hyperactivity disorder (ADHD), inattentive type, 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 and Borderline personality disorder F60.3 [facility] [address] [address] February, Paranoid schizophrenia F20.0 ; Posttraum atic stress disorder F43.10 ; Attention deficit hyperactivity disorder (ADHD), inattentive type, 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 and Borderline personality disorder F60.3 [facility] [address] [address] February, [facility] [address] [address] February, Paranoid schizophrenia F20.0 [facility] [address] [address] February, Paranoid schizophrenia F20.0 [facility] [address] [address] February, Paranoid schizophrenia F20.0 ; Posttraum atic stress disorder F43.10 ; Attention deficit hyperactivity disorder (ADHD), inattentive type, 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 and Borderline personality disorder F60.3 [facility] [address] [address] Jan, Paranoid schizophrenia F20.0 ; Posttraum atic stress disorder F43.10 ; Attention deficit hyperactivity disorder (ADHD), inattentive type, 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 and Borderline personality disorder F60.3 [facility] [address] [address] Jan, Paranoid schizophrenia F20.0 [facility] [address] [address] Jan, Paranoid schizophrenia F20.0 [facility] [address] [address] Jan, Paranoid schizophrenia F20.0 ; Posttraum atic stress disorder F43.10 ; Attention deficit hyperactivity disorder (ADHD), inattentive type, 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 and Borderline personality disorder F60.3 [facility] [address] [address] Dec, [facility] [address] [address] Nov, Paranoid schizophrenia F20.0 ; Posttraum atic stress disorder F43.10 ; Attention deficit hyperactivity disorder (ADHD), inattentive type, 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 and Borderline personality disorder F60.3 [facility] [address] [address] Nov, [facility] [address] [address] Oct, Paranoid schizophrenia F20.0 [facility] [address] [address] Oct, Paranoid schizophrenia F20.0 ; Posttraum atic stress disorder F43.10 ; Attention deficit hyperactivity disorder (ADHD), inattentive type, 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 ; Borderline personality disorder F60.3 and 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 [facility] [address] [address] Oct, [facility] [address] [address] Oct, [facility] [address] [address] Sep, [facility] [address] [address] Sep, Paranoid schizophrenia F20.0 ; Posttraum atic stress disorder F43.10 ; Attention deficit hyperactivity disorder (ADHD), inattentive type, 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 and Borderline personality disorder F60.3 [facility] [address] [address] Sep, Paranoid schizophrenia F20.0 [facility] [address] [address] Aug, Paranoid schizophrenia F20.0 ; Posttraum atic stress disorder F43.10 ; Attention deficit hyperactivity disorder (ADHD), inattentive type, 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 and Borderline personality disorder F60.3 [facility] [address] [address] Aug, Paranoid schizophrenia F20.0 ; Posttraum atic stress disorder F43.10 ; Attention deficit hyperactivity disorder (ADHD), inattentive type, 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 and Borderline personality disorder F60.3 [facility] [address] [address] Aug, [facility] [address] [address] Jul, Paranoid schizophrenia F20.0 ; Posttraum atic stress disorder F43.10 ; Attention deficit hyperactivity disorder (ADHD), inattentive type, 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 and Borderline personality disorder F60.3 [facility] [address] [address] Jul, Paranoid schizophrenia F20.0 [facility] [address] [address] Jul, Paranoid schizophrenia F20.0 ; Posttraum atic stress disorder F43.10 ; Attention deficit hyperactivity disorder (ADHD), inattentive type, 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 and Borderline personality disorder F60.3 [facility] [address] [place] [id number] [place] [address] Jun, Paranoid schizophrenia F20.0 ; Posttraum atic stress disorder F43.10 ; Attention deficit hyperactivity disorder (ADHD), inattentive type, 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 and Borderline personality disorder F60.3 [facility] [address] [address] May, 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 [facility] [address] [address] May, [facility] [address] [address] May, [facility] [address] [address] May, Attention deficit hyperactivity disorder (ADHD), inattentive type, 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 [facility] [address] [place] [id number] [place] [address] May, [facility] [address] [address] May, Attention deficit hyperactivity disorder (ADHD), inattentive type, 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 [facility] [address] [address] May, Paranoid schizophrenia F20.0 ; Posttraum atic stress disorder F43.10 ; Attention deficit hyperactivity disorder (ADHD), inattentive type, 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 and 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 [facility] [address] [place] [id number] [place] [address] Apr, Paranoid schizophrenia F20.0 [facility] [address] [place] [id number] [place] [address] Apr, Paranoid schizophrenia F20.0 ; Posttraum atic stress disorder F43.10 and Attention deficit hyperactivity disorder (ADHD), inattentive type, 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 [facility] [address] [address] February, [facility] [address] [place] [id number] February, Paranoid schizophrenia F20.0 ; Posttraum atic stress disorder F43.10 and Attention deficit hyperactivity disorder (ADHD), inattentive type, 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 [facility] [address] [address] February, Paranoid schizophrenia F20.0 ; Posttraum atic stress disorder F43.10 and Attention deficit hyperactivity disorder (ADHD), inattentive type, 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 [facility] [address] [address] Jan, Paranoid schizophrenia F20.0 ; Posttraum atic stress disorder F43.10 and Attention deficit hyperactivity disorder (ADHD), inattentive type, 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 [facility] [address] [id number] Dec, Dental examination Z01.20 [facility] [address] [id number] Nov, Dental examination Z01.20 [facility] [address] [id number] Nov, Dental examination Z01.20 [facility] [address] [id number] Nov, Dental caries K02.9 [facility] [address] [address] 13 Nov, 2016 High risk medication use Z79.899 [facility] [address] [place] [id number] Nov, Paranoid schizophrenia F20.0 ; Posttraum atic stress disorder F43.10 ; Attention deficit hyperactivity disorder (ADHD), inattentive type, 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 and Borderline personality disorder in adult F60.3 [facility] [address] [id number] Oct, Dental caries K02.9 [facility] [address] [place] [id number] 05 Sep, 2016 Paranoid schizophrenia F20.0 ; Posttraum atic stress disorder F43.10 and Attention deficit hyperactivity disorder (ADHD), inattentive type, 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 [facility] [address] [address] 16 Aug, 2016 Paranoid schizophrenia F20.0 ; Posttraum atic stress disorder F43.10 and Attention deficit hyperactivity disorder (ADHD), inattentive type, 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 [facility] [address] [facility] [id number] [address] [place] [address] Aug, Strep throat J02.0 and Cough R05 [facility] [address] [address] Aug, [facility] [address] [address] 24 Jul, 2016 Paranoid schizophrenia F20.0 ; Posttraum atic stress disorder F43.10 and Attention deficit hyperactivity disorder (ADHD), inattentive type, 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 [facility] [address] [address] Jul, [facility] [address] [address] 28 Jun, 2016 Paranoid schizophrenia F20.0 ; Posttraum atic stress disorder F43.10 and Attention deficit hyperactivity disorder (ADHD), inattentive type, 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 [facility] [address] [id number] Jun, Dental examination Z01.20 [facility] [address] [address] Jun, [facility] [address] [address] May, Paranoid schizophrenia F20.0 [facility] [address] [id number] [place] [address] May, Paranoid schizophrenia F20.0 ; Posttraum atic stress disorder F43.10 and Attention deficit hyperactivity disorder (ADHD), inattentive type, 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 [facility] [address] [facility] [place] [address] May, [facility] [address] [address] May, Paranoid schizophrenia F20.0 [facility] [address] [place] [id number] [place] [address] May, [facility] [address] [place] [id number] [place] [address] May, Paranoid schizophrenia F20.0 [facility] [address] [place] [id number] [place] [address] May, Schizoaffective disorder, unspecified F2 5.9 [facility] [address] [place] [id number] [place] [address] May, Schizoaffective disorder, unspecified F2 5.9 [facility] [address] [place] [id number] [place] [address] May, [facility] [address] [place] [id number] [place] [address] May, Paranoid schizophrenia F20.0 [facility] [address] [place] [id number] [place] [address] May, Paranoid schizophrenia F20.0 ; Posttraum atic stress disorder F43.10 and Attention deficit hyperactivity disorder (ADHD), inattentive type, 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 [facility] [address] [place] [id number] [place] [address] Mar, [facility] [address] [place] [id number] [place] [address] Mar, Paranoid schizophrenia F20.0 ; Posttraum atic stress disorder F43.10 and Attention deficit hyperactivity disorder (ADHD), inattentive type, 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 [facility] [address] [address] Mar, Paranoid schizophrenia F20.0 [facility] [address] [address] Mar, Paranoid schizophrenia F20.0 ; Attention deficit hyperactivity disorder (ADHD), inattentive type, 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 and Posttraumatic stress disorder F43.10 [facility] [address] [address] Mar, [facility] [address] [address] Mar, Paranoid schizophrenia F20.0 ; Posttraum atic stress disorder F43.10 and Attention deficit hyperactivity disorder (ADHD), inattentive type, 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 [facility] [address] [address] February, [facility] [address] [address] February, [facility] [address] [address] February, [facility] [address] [address] February, [facility] [address] [address] Jan, Paranoid schizophrenia F20.0 [facility] [address] [id number] Jan, Dental examination Z01.20 [facility] [address] [id number] Jan, Dental caries K02.9 [facility] [address] [id number] Jan, Dental examination Z01.20 [facility] [address] [id number] Dec, Encounter for dental examination Z01.20 [facility] [address] [id number] [place] [address] 30 Dec, 2015 Paranoid schizophrenia F20.0 [facility] [address] [id number] [place] [id number] Dec, Dental examination Z01.20 [facility] [address] [id number] [place] [address] 07 Dec, 2015 [facility] [address] [address] 07 Dec, 2015 Paranoid schizophrenia F20.0 ; Posttraum atic stress disorder F43.10 and Attention deficit hyperactivity disorder (ADHD), inattentive type, 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 [facility] [address] [address] Nov, Schizoaffective disorder, unspecified F2 5.9 [facility] [address] [address] Oct, Paranoid schizophrenia F20.0 [facility] [address] [place] [id number] [place] [address] Oct, [facility] [address] [address] Sep, Paranoid schizophrenia F20.0 ; Posttraum atic stress disorder F43.10 and Attention deficit hyperactivity disorder (ADHD), inattentive type, 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 [facility] [address] [address] Sep, [facility] [address] [address] Sep, Paranoid schizophrenia F20.0 ; Posttraum atic stress disorder F43.10 and Attention deficit hyperactivity disorder (ADHD), inattentive type, 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 [facility] [address] [id number] [place] [address] Aug, Paranoid schizophrenia F20.0 [facility] [address] [address] Aug, [facility] [address] [address] Aug, Posttraumatic stress disorder F43.10 ; P aranoid schizophrenia F20.0 and Attention deficit hyperactivity disorder (ADHD), inattentive type, 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 [facility] [address] [address] Jul, Bipolar disorder, unspecified F31.9 [facility] [address] [address] Jul, [facility] [address] [address] Jun, [facility] [address] [address] [address] Jun, Schizoaffective disorder, chronic 295.72 ; Posttraumatic stress disorder 309.81 and Attention deficit disorder of childhood without mention of hyperactivity 314.00 [facility] [address] [address] May, [facility] [address] [address] May, [facility] [address] [address] May, Schizoaffective disorder, chronic 295.72 ; Posttraumatic stress disorder 309.81 ; Attention deficit disorder of childhood without mention of hyperactivity 314.00 and Bipolar disorder, unspecified 296.80 [facility] [address] [address] Apr, Schizoaffective disorder, chronic 295.72 [facility] [address] [address] Apr, [facility] [address] [address] Apr, Schizoaffective disorder, chronic 295.72 ; Posttraumatic stress disorder 309.81 and Attention deficit disorder of childhood without mention of hyperactivity 314.00 [facility] [id number] [place] [address] Mar, Disorganized schizophrenia, 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 [facility] [id number] [place] [address] Mar, [facility] [id number] [place] [address] Mar, [facility] [id number] [place] [address] Mar, [facility] [id number] [place] [address] Mar, [facility] [id number] [place] [address] February, Schizoaffective disorder, chronic 295.72 [facility] [id number] [place] [address] February, [facility] [id number] [place] [address] February, Attention deficit disorder of childhood without mention of hyperactivity 314.00 ; Posttraumatic stress disorder 309.81 and Schizoaffective disorder, chronic 295.72 [facility] [id number] [place] [address] 29 Jan, 2015 [facility] [id number] [place] [address] 14 Jan, 2015 [facility] [id number] [place] [address] Jan, [facility] [id number] [place] [address] Dec, [facility] [id number] [place] [address] Dec, [facility] [id number] [place] [address] Dec, [facility] [id number] [place] [address] Dec, [facility] [place] [facility] [address] [id number] [place] [address] 10 Dec, 2014 [facility] [place] [facility] [address] [id number] [place] [address] Dec, [facility] [place] [facility] [address] [id number] [place] [address] Dec, [facility] [place] [facility] [address] [id number] [place] [address] Dec, [facility] [place] [facility] [address] [id number] [place] [address] Nov, [facility] [place] [facility] [address] [id number] [place] [address] Nov, [facility] [place] [facility] [address] [id number] [place] [address] Nov, [facility] [place] [facility] [address] [id number] [place] [address] Nov, [facility] [place] [facility] [address] [id number] [place] [address] Nov, [facility] [place] [facility] [address] [id number] [place] [address] Nov, [facility] [place] [facility] [address] [id number] [place] [address] Nov, [facility] [place] [facility] [address] [id number] [place] [address] Nov, [facility] [place] [facility] [address] [id number] [place] [address] Nov, [facility] [place] [facility] [address] [id number] [place] [address] Nov, [facility] [place] [facility] [address] [id number] [place] [address] Oct, [facility] [place] [facility] [address] [id number] [place] [address] Oct, [facility] [place] [facility] [address] [id number] [place] [address] Oct, [facility] [place] [facility] [address] [id number] [place] [address] 15 Oct, 2014 [facility] [place] [facility] [address] [id number] [place] [address] 15 Oct, 2014 [facility] [place] [facility] [address] [id number] [place] [address] Oct, [facility] [place] [facility] [address] [id number] [place] [address] Oct, [facility] [place] [facility] [address] [id number] [place] [address] Sep, [facility] [place] [facility] [address] [id number] [place] [address] 17 Sep, 2014 [facility] [place] [facility] [address] [id number] [place] [address] 15 Sep, 2014 [facility] [place] [facility] [address] [id number] [place] [address] 15 Sep, 2014 [facility] [place] [facility] [address] [id number] [place] [address] Aug, [facility] [place] [facility] [address] [id number] [place] [address] 20 Aug, 2014 [facility] [place] [facility] [address] [id number] [place] [address] 14 Aug, 2014 [facility] [place] [facility] [address] [id number] [place] [address] 14 Aug, 2014 [facility] [place] [facility] [address] [id number] [place] [address] 14 Aug, 2014 [facility] [place] [facility] [address] [id number] [place] [address] 14 Aug, 2014 [facility] [place] [facility] [address] [id number] [place] [address] 29 Jul, 2014 [facility] [place] [facility] [address] [id number] [place] [address] Jul, [facility] [place] [facility] [address] [id number] [place] [address] 24 Jul, 2013 [facility] [place] [facility] [address] [facility] [id number] [place] [address] 24 Jul, 2013 [facility] [place] [facility] [address] [facility] [id number] [place] [address] 15 Jul, 2014 [facility] [place] [facility] [address] [id number] [place] [address] 15 Jul, 2014 [facility] [place] [facility] [address] [facility] [id number] [place] [address] 27 Jun, 2013 [facility] [place] [facility] [address] [facility] [id number] [place] [address] 27 Jun, 2013 [facility] [place] [facility] [address] [id number] [place] [address] 26 Jun, 2013 [facility] [place] [facility] [address] [id number] [place] [address] 26 Jun, 2013 [facility] [place] [facility] [address] [id number] [place] [address] 26 Jun, 2013 [facility] [place] [facility] [address] [facility] [id number] [place] [address] 26 Jun, 2013 [facility] [place] [facility] [address] [id number] [place] [address] 16 Jun, 2013 [facility] [place] [facility] [address] [id number] [place] [address] 16 Jun, 2013 [facility] [place] [facility] [address] [id number] [place] [address] 16 Jun, 2013 [facility] [place] [facility] [address] [facility] [id number] [place] [address] 16 Jun, 2013 [facility] [place] [facility] [address] [id number] [place] [address] 04 Jun, 2013 [facility] [place] [facility] [address] [id number] [place] [address] May, [facility] [place] [facility] [address] [id number] [place] [address] May, [facility] [place] [facility] [address] [id number] [place] [address] May, [facility] [place] [facility] [address] [facility] [id number] [place] [address] May, [facility] [place] [facility] [address] [facility] [id number] [place] [address] May, [facility] [place] [facility] [address] [facility] [id number] [place] [address] May, [facility] [place] [facility] [address] [facility] [id number] [place] [address] May, [facility] [place] [facility] [address] [facility] [id number] [place] [address] May, [facility] [place] [facility] [address] [id number] [place] [address] May, [facility] [place] [facility] [address] [id number] [place] [address] May, [facility] [place] [facility] [address] [facility] [id number] [place] [address] Apr, [facility] [place] [facility] [address] [id number] [place] [address] Apr, [facility] [place] [facility] [address] [id number] [place] [address] Apr, [facility] [place] [facility] [address] [id number] [place] [address] Apr, [facility] [place] [facility] [address] [facility] [id number] [place] [address] Apr, [facility] [place] [facility] [address] [facility] [id number] [place] [address] Apr, [facility] [place] [facility] [address] [facility] [id number] [place] [address] Apr, [facility] [place] [facility] [address] [id number] [place] [address] Apr, [facility] [place] [facility] [address] [id number] [place] [address] 15 Apr, 2014 [facility] [place] [facility] [address] [facility] [id number] [place] [address] Apr, [facility] [place] [facility] [address] [facility] [id number] [place] [address] Mar, [facility] [place] [facility] [address] [id number] [place] [address] Mar, [facility] [place] [facility] [address] [facility] [id number] [place] [address] Mar, [facility] [place] [facility] [address] [facility] [id number] [place] [address] 24 Mar, 2014 [facility] [place] [facility] [address] [id number] [place] [address] Mar, [facility] [place] [facility] [address] [id number] [place] [address] 18 Mar, 2014 [facility] [place] [facility] [address] [id number] [place] [address] 18 Mar, 2014 [facility] [place] [facility] [address] [id number] [place] [address] 16 Mar, 2014 [facility] [place] [facility] [address] [id number] [place] [address] 16 Mar, 2014 [facility] [place] [facility] [address] [id number] [place] [address] 13 Mar, 2014 [facility] [place] [facility] [address] [id number] [place] [address] 13 Mar, 2014 [facility] [place] [facility] [address] [facility] [id number] [place] [address] 11 Mar, 2014 [facility] [place] [facility] [address] [id number] [place] [address] 11 Mar, 2014 [facility] [place] [facility] [address] [id number] [place] [address] 10 Mar, 2014 [facility] [place] [facility] [address] [id number] [place] [address] 09 Mar, 2014 [facility] [place] [facility] [address] [facility] [id number] [place] [address] Mar, [facility] [place] [facility] [address] [id number] [place] [address] Mar, [facility] [place] [facility] [address] [facility] [id number] [place] [address] Mar, [facility] [place] [facility] [address] [id number] [place] [address] Mar, [facility] [place] [facility] [address] [facility] [id number] [place] [address] Mar, [facility] [place] [facility] [address] [facility] [id number] [place] [address] February, [facility] [place] [facility] [address] [id number] [place] [address] February, [facility] [place] [facility] [address] [id number] [place] [address] February, [facility] [place] [facility] [address] [id number] [place] [address] February, [facility] [place] [facility] [address] [id number] [place] [address] February, [facility] [place] [facility] [address] [id number] [place] [address] February, [facility] [place] [facility] [address] [id number] [place] [address] February, [facility] [place] [facility] [address] [id number] [place] [address] February, [facility] [place] [facility] [address] [facility] [id number] [place] [address] February, [facility] [place] [facility] [address] [id number] [place] [address] February, [facility] [place] [facility] [address] [id number] [place] [address] February, [facility] [place] [facility] [address] [id number] [place] [address] February, [facility] [place] [facility] [address] [id number] [place] [address] February, [facility] [place] [facility] [address] [id number] [place] [address] February, [facility] [place] [facility] [address] [id number] [place] [address] February, [facility] [place] [facility] [address] [id number] [place] [address] February, [facility] [place] [facility] [address] [id number] [place] [address] February, [facility] [place] [facility] [address] [id number] [place] [address] February, [facility] [place] [facility] [address] [id number] [place] [address] February, [facility] [place] [facility] [address] [id number] [place] [address] February, [facility] [place] [facility] [address] [id number] [place] [address] February, [facility] [place] [facility] [address] [id number] [place] [address] Jan, [facility] [place] [facility] [address] [id number] [place] [address] Jan, [facility] [place] [facility] [address] [id number] [place] [address] Jan, [facility] [place] [facility] [address] [id number] [place] [address] Jan, [facility] [place] [facility] [address] [id number] [place] [address] Jan, [facility] [place] [facility] [address] [id number] [place] [address] Jan, [facility] [place] [facility] [address] [id number] [place] [address] Jan, [facility] [place] [facility] [address] [id number] [place] [address] 10 Jan, 2014 [facility] [place] [facility] [address] [facility] [id number] [place] [address] 21 Dec, 2013 [facility] [place] [facility] [address] [facility] [id number] [place] [address] 20 Dec, 2013 [facility] [place] [facility] [address] [id number] [place] [address] 20 Dec, 2013 [facility] [place] [facility] [address] [id number] [place] [address] 19 Dec, 2013 [facility] [place] [facility] [address] [facility] [id number] [place] [address] 19 Dec, 2013 [facility] [place] [facility] [address] [id number] [place] [address] 15 Dec, 2013 [facility] [place] [facility] [address] [id number] [place] [address] 15 Dec, 2013 [facility] [place] [facility] [address] [id number] [place] [address] 11 Dec, 2013 [facility] [place] [facility] [address] [id number] [place] [address] 10 Dec, 2013 [facility] [place] [facility] [address] [id number] [place] [address] 10 Dec, 2013 [facility] [place] [facility] [address] [id number] [place] [address] 18 Nov, 2013 [facility] [place] [facility] [address] [id number] [place] [address] 17 Nov, 2013 [facility] [place] [facility] [address] [facility] [id number] [place] [address] 17 Nov, 2013 [facility] [place] [facility] [address] [id number] [place] [address] 05 Nov, 2013 [facility] [place] [facility] [address] [id number] [place] [address] 05 Nov, 2013 [facility] [place] [facility] [address] [id number] [place] [address] Oct, [facility] [place] [facility] [address] [id number] [place] [address] Oct, [facility] [place] [facility] [address] [id number] [place] [address] Oct, [facility] [place] [facility] [address] [id number] [place] [address] Sep, [facility] [place] [facility] [address] [id number] [place] [address] Sep, [facility] [place] [facility] [address] [id number] [place] [address] Sep, [facility] [place] [facility] [address] [id number] [place] [address] Sep, [facility] [place] [facility] [address] [id number] [place] [address] Aug, [facility] [place] [facility] [id number] [place] [address] Aug, [facility] [place] [facility] [address] [id number] [place] [address] Jul, [facility] [place] [facility] [address] [id number] [place] [address] Jul, [facility] [place] [facility] [address] [id number] [place] [address] Jul, [facility] [place] [facility] [id number] [place] [address] Jul, [facility] [place] [facility] [address] [id number] [place] [address] Jul, [facility] [place] [facility] [address] [id number] [place] [address] Jun, [facility] [place] [facility] [id number] [place] [address] 25 Jun, 2012 [facility] [place] [facility] [address] [id number] [place] [address] 19 Jun, 2012 [facility] [place] [facility] [address] [id number] [place] [address] 18 Jun, 2013 [facility] [place] [facility] [address] [facility] [id number] [place] [address] 16 Jun, 2013 [facility] [place] [facility] [address] [facility] [id number] [place] [address] 12 Jun, 2013 [facility] [place] [facility] [address] [id number] [place] [address] 11 Jun, 2013 [facility] [place] [facility] [address] [id number] [place] [address] 30 May, 2013 [facility] [place] [facility] [address] [facility] [id number] [place] [address] May, [facility] [place] [facility] [address] [id number] [place] [address] Apr, [facility] [place] [facility] [address] [id number] [place] [address] Apr, [facility] [place] [facility] [address] [id number] [place] [address] Apr, [facility] [place] [facility] [address] [id number] [place] [address] Mar, [facility] [place] [facility] [address] [id number] [place] [address] Mar, [facility] [place] [facility] [address] [id number] [place] [address] February, [facility] [place] [facility] [address] [id number] [place] [address] February, [facility] [place] [facility] [address] [id number] [place] [address] February, [facility] [place] [facility] [address] [id number] [place] [address] February, [facility] [address] [id number] [place] [address] Jan, [facility] [address] [id number] [place] [address] Jan, [facility] [address] [id number] [place] [address] 16 Jan, 2013 [facility] [address] [id number] [place] [address] 29 Dec, 2012 [facility] [address] [id number] [place] [address] Dec, [facility] [address] [id number] [place] [address] Dec, [facility] [address] [id number] [place] [address] 08 Dec, 2012 [facility] [address] [id number] [place] [address] Nov, [facility] [address] [id number] [place] [address] Nov, [facility] [address] [id number] [place] [address] Oct, [facility] [id number] [place] [address] Oct, [facility] [address] [id number] [place] [address] Oct, [facility] [address] [id number] [place] [address] Oct, [facility] [id number] [place] [address] Aug, [facility] [address] [id number] [place] [address] Aug, [facility] [address] [id number] [place] [address] Jun, [facility] [id number] [place] [address] May, [facility] [address] [id number] [place] [address] May, [facility] [address] [id number] [place] [address] Apr, [facility] [address] [id number] [place] [address] Apr, [facility] [address] [id number] [place] [address] Apr, [facility] [address] [id number] [place] [address] Mar, [facility] [address] [id number] [place] [address] Mar, [facility] [address] [id number] [place] [address] Mar, [facility] [address] [id number] [place] [address] Mar, [facility] [address] [id number] [place] [address] Mar, [facility] [address] [id number] [place] [address] February, [facility] [address] [id number] [place] [address] February, [facility] [address] [id number] [place] [address] February, [facility] [address] [id number] [place] [address] February, [facility] [address] [id number] [place] [address] February, [facility] [address] [id number] [place] [address] February, [facility] [address] [id number] [place] [address] February, [facility] [address] [id number] [place] [address] Jan, [facility] [address] [id number] [place] [address] Jan, [facility] [address] [id number] [place] [address] 17 Jan, 2012 [facility] [address] [id number] [place] [address] 13 Jan, 2012 [facility] [address] [id number] [place] [address] 10 Jan, 2012 [facility] [address] [id number] [place] [address] 04 Jan, 2012 [facility] [address] [id number] [place] [address] 30 Dec, 2011 [facility] [place] [facility] [address] [facility] [id number] [place] [address] 24 Dec, 2011 [facility] [place] [facility] [address] [id number] [place] [address] 20 Dec, 2011 [facility] [place] [facility] [address] [id number] [place] [address] 13 Dec, 2011 [facility] [place] [facility] [address] [id number] [place] [address] 06 Dec, 2011 [facility] [place] [facility] [address] [id number] [place] [address] 28 Nov, 2011 [facility] [place] [facility] [address] [id number] [place] [address] 27 Nov, 2011 [facility] [place] [facility] [address] [id number] [place] [address] 25 Nov, 2011 [facility] [place] [facility] [address] [id number] [place] [address] 14 Nov, 2011 [facility] [place] [facility] [address] [id number] [place] [address] 10 Nov, 2011 [facility] [place] [facility] [address] [id number] [place] [address] Nov, [facility] [place] [facility] [address] [id number] [place] [address] Oct, [facility] [place] [facility] [address] [id number] [place] [address] Oct, [facility] [place] [facility] [address] [id number] [place] [address] Oct, [facility] [address] [id number] [place] [address] Oct, [facility] [place] [facility] [address] [id number] [place] [address] Oct, [facility] [address] [id number] [place] [address] Sep, [facility] [place] [facility] [address] [id number] [place] [address] Sep, [facility] [place] [facility] [address] [id number] [place] [address] Sep, [facility] [place] [facility] [address] [id number] [place] [address] 14 Sep, 2011 [facility] [address] [id number] [place] [address] 14 Sep, 2011 [facility] [place] [facility] [address] [id number] [place] [address] Sep, [facility] [place] [facility] [address] [id number] [place] [address] Sep, [facility] [place] [facility] [address] [id number] [place] [address] Sep, [facility] [place] [facility] [address] [id number] [place] [address] Sep, [facility] [place] [facility] [address] [id number] [place] [address] Aug, [facility] [place] [facility] [address] [id number] [place] [address] Aug, [facility] [place] [facility] [address] [id number] [place] [address] Aug, [facility] [place] [facility] [address] [id number] [place] [address] Aug, [facility] [place] [facility] [address] [id number] [place] [address] Aug, [facility] [place] [facility] [address] [id number] [place] [address] Aug, [facility] [place] [facility] [address] [id number] [place] [address] Aug, [facility] [place] [facility] [address] [id number] [place] [address] Aug, [facility] [place] [facility] [address] [id number] [place] [address] Aug, [facility] [place] [facility] [address] [id number] [place] [address] Aug, [facility] [place] [facility] [address] [id number] [place] [address] Aug, [facility] [place] [facility] [address] [id number] [place] [address] Aug, [facility] [place] [facility] [address] [id number] [place] [address] Jul, [facility] [place] [facility] [address] [id number] [place] [address] Jul, [facility] [place] [facility] [address] [id number] [place] [address] 24 Jul, 2011 [facility] [place] [facility] [address] [id number] [place] [address] Jul, [facility] [place] [facility] [address] [id number] [place] [address] Jul, [facility] [place] [facility] [address] [id number] [place] [address] Jul, [facility] [place] [facility] [address] [id number] [place] [address] 18 Jul, 2011 [facility] [place] [facility] [address] [id number] [place] [address] 11 Jul, 2011 [facility] [place] [facility] [address] [id number] [place] [address] 10 Jul, 2011 [facility] [place] [facility] [address] [id number] [place] [address] Jul, [facility] [address] [id number] [place] [address] Nov, [facility] [address] [id number] [place] [address] Aug, [facility] [address] [id number] [place] [address] Aug, [facility] [address] [id number] [place] [address] Aug, [facility] [address] [id number] [place] [address] Aug, [facility] [address] [id number] [place] [address] Jul, IMMUNIZATIONS No Known Immunizations SOCIAL HISTORY [...] Suicide attempt by hanging 2015 Hospitalization History [facility] 01/30/2018-02/10/20 08 Hospitalization History [facility] 05/04/18-
--- OUTSIDE RECORDS SUMMARY | 2020-04-04 01:47 | XMS REPORT ---
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 Name Role Phone Migration, Doctor Unavailable Unavailable PROBLEMS Type Condition ICD9-CM Code [id number] Code Onset Dates Condition S tatus SNOMED Code Problem Paranoid schizophrenia F20.0 Active 54435208 Problem Borderline personality disorder F60.3 Active 38282023 Problem Schizoaffective disorder, depressive type F25.1 Active 18557016 Problem Schizoaffective disorder, unspecified F25.9 Active 15395739 Problem Attention deficit hyperactivity disorder (ADHD), inattentive type, 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 72503507 Problem Posttraumatic stress disorder F43.10 Active 00736585 Problem High risk medication use Z79.899 Activ e [id number] ALLERGIES No Information ENCOUNTERS Encounter Location Date Diagnosis [place] [address] [address] Dec, [place] [address] [address] Nov, Paranoid schizophrenia F20.0 ; Attention deficit hyperactivity disorder (ADHD), inattentive type, 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 ; Posttraumatic stress disorder F43.10 and Borderline personality disorder F60.3 [place] [address] [address] Nov, [place] [address] [address] Oct, Paranoid schizophrenia F20.0 ; Attention deficit hyperactivity disorder (ADHD), inattentive type, 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 ; Posttraumatic stress disorder F43.10 and Borderline personality disorder F60.3 [place] [address] [address] Oct, [facility] [address] [address] Sep, Paranoid schizophrenia F20.0 ; Attention deficit hyperactivity disorder (ADHD), inattentive type, 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 ; Posttraumatic stress disorder F43.10 and Borderline personality disorder F60.3 [facility] [address] [address] Aug, Paranoid schizophrenia F20.0 ; Attention deficit hyperactivity disorder (ADHD), inattentive type, 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 ; Posttraumatic stress disorder F43.10 and Borderline personality disorder F60.3 [facility] [address] [address] Aug, [facility] [address] [facility] [id number] [address] [place] [address] Aug, Acute bronchitis, unspecifie d organism J20.9 [facility] [address] [address] Aug, [facility] [address] [address] Aug, [facility] [address] [address] Jul, Paranoid schizophrenia F20.0 ; Attention deficit hyperactivity disorder (ADHD), inattentive type, 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 ; Posttraumatic stress disorder F43.10 and Borderline personality disorder F60.3 [facility] [address] [address] Jul, [facility] [address] [address] Jun, Paranoid schizophrenia F20.0 ; Other katherin g term (current) 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 Z79.899 ; Attention deficit hyperactivity disorder (ADHD), inattentive type, 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 ; Posttraumatic stress disorder F43.10 and Borderline personality disorder F60.3 [facility] [address] [address] Jun, Paranoid schizophrenia F20.0 ; Attention deficit hyperactivity disorder (ADHD), inattentive type, 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 ; Posttraumatic stress disorder F43.10 ; Borderline personality disorder F60.3 and Other director long term care (current) drug therapy Z79.899 [place] [address] [address] Apr, Paranoid schizophrenia F20.0 ; Posttraum atic stress disorder F43.10 ; Attention deficit hyperactivity disorder (ADHD), inattentive type, 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 and Borderline personality disorder F60.3 [place] [address] [address] Apr, Paranoid schizophrenia F20.0 [place] [address] [address] Apr, Paranoid schizophrenia F20.0 ; Posttraum atic stress disorder F43.10 ; Attention deficit hyperactivity disorder (ADHD), inattentive type, 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 and Borderline personality disorder F60.3 [place] [address] [address] Mar, Paranoid schizophrenia F20.0 [place] [address] [address] Mar, Paranoid schizophrenia F20.0 ; Posttraum atic stress disorder F43.10 ; Attention deficit hyperactivity disorder (ADHD), inattentive type, 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 and Borderline personality disorder F60.3 [place] [address] [address] February, Paranoid schizophrenia F20.0 [place] [address] [address] Jan, Paranoid schizophrenia F20.0 ; Posttraum atic stress disorder F43.10 ; Attention deficit hyperactivity disorder (ADHD), inattentive type, 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 and Borderline personality disorder F60.3 [facility] [address] [address] Dec, Paranoid schizophrenia F20.0 ; Posttraum atic stress disorder F43.10 ; Attention deficit hyperactivity disorder (ADHD), inattentive type, 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 and Borderline personality disorder F60.3 [facility] [address] [address] Dec, Paranoid schizophrenia F20.0 ; Posttraum atic stress disorder F43.10 ; Attention deficit hyperactivity disorder (ADHD), inattentive type, 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 and Borderline personality disorder F60.3 [facility] [address] [address] Oct, Paranoid schizophrenia F20.0 ; Posttraum atic stress disorder F43.10 ; Attention deficit hyperactivity disorder (ADHD), inattentive type, 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 and Borderline personality disorder F60.3 [facility] [address] [address] Oct, Paranoid schizophrenia F20.0 ; Posttraum atic stress disorder F43.10 ; Attention deficit hyperactivity disorder (ADHD), inattentive type, 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 and Borderline personality disorder F60.3 [facility] [address] [address] Aug, [facility] [address] [address] Aug, Paranoid schizophrenia F20.0 ; Posttraum atic stress disorder F43.10 ; Attention deficit hyperactivity disorder (ADHD), inattentive type, 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 and Borderline personality disorder F60.3 [facility] [address] [facility] [id number] [address] [place] [address] Jul, Dry skin dermatitis L85.3 [facility] [address] [id number] [place] [address] Jul, [facility] [address] [address] Jul, Paranoid schizophrenia F20.0 [facility] [address] [place] [id number] [place] [address] May, Paranoid schizophrenia F20.0 ; Posttraum atic stress disorder F43.10 ; Attention deficit hyperactivity disorder (ADHD), inattentive type, 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 and Borderline personality disorder F60.3 [facility] [address] [id number] [place] [address] May, [facility] [address] [id number] [place] [address] May, Paranoid schizophrenia F20.0 [facility] [address] [place] [id number] [place] [address] May, Paranoid schizophrenia F20.0 ; Posttraum atic stress disorder F43.10 ; Attention deficit hyperactivity disorder (ADHD), inattentive type, 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 and Borderline personality disorder F60.3 [facility] [address] [place] [id number] [place] [address] Apr, [facility] [address] [place] [id number] [place] [address] Apr, Paranoid schizophrenia F20.0 ; Posttraum atic stress disorder F43.10 ; Attention deficit hyperactivity disorder (ADHD), inattentive type, 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 and Borderline personality disorder F60.3 [facility] [address] [place] [id number] [place] [address] Apr, [facility] [address] [address] Apr, Schizoaffective disorder, depressive typ e F25.1 and Borderline personality disorder F60.3 [facility] [address] [place] [id number] [place] [address] Apr, Paranoid schizophrenia F20.0 ; Posttraum atic stress disorder F43.10 ; Attention deficit hyperactivity disorder (ADHD), inattentive type, 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 and Borderline personality disorder F60.3 [facility] [address] [place] [id number] [place] [address] Apr, [facility] [address] [place] [id number] [place] [address] Apr, Paranoid schizophrenia F20.0 ; Posttraum atic stress disorder F43.10 ; Attention deficit hyperactivity disorder (ADHD), inattentive type, 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 and Borderline personality disorder F60.3 [facility] [address] [address] Apr, [facility] [address] [address] Mar, Paranoid schizophrenia F20.0 [facility] [address] [address] Mar, [facility] [address] [address] Mar, Paranoid schizophrenia F20.0 ; Posttraum atic stress disorder F43.10 ; Attention deficit hyperactivity disorder (ADHD), inattentive type, 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 and Borderline personality disorder F60.3 [facility] [address] [address] February, Paranoid schizophrenia F20.0 [facility] [address] [address] February, Paranoid schizophrenia F20.0 ; Posttraum atic stress disorder F43.10 ; Attention deficit hyperactivity disorder (ADHD), inattentive type, 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 and Borderline personality disorder F60.3 [facility] [address] [address] February, Paranoid schizophrenia F20.0 ; Posttraum atic stress disorder F43.10 ; Attention deficit hyperactivity disorder (ADHD), inattentive type, 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 and Borderline personality disorder F60.3 [facility] [address] [address] February, [facility] [address] [address] February, Paranoid schizophrenia F20.0 [facility] [address] [address] February, Paranoid schizophrenia F20.0 [facility] [address] [address] February, Paranoid schizophrenia F20.0 ; Posttraum atic stress disorder F43.10 ; Attention deficit hyperactivity disorder (ADHD), inattentive type, 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 and Borderline personality disorder F60.3 [facility] [address] [place] [id number] [place] [address] Jan, Paranoid schizophrenia F20.0 ; Posttraum atic stress disorder F43.10 ; Attention deficit hyperactivity disorder (ADHD), inattentive type, 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 and Borderline personality disorder F60.3 [facility] [address] [address] Jan, Paranoid schizophrenia F20.0 [facility] [address] [address] Jan, Paranoid schizophrenia F20.0 [facility] [address] [address] Jan, Paranoid schizophrenia F20.0 ; Posttraum atic stress disorder F43.10 ; Attention deficit hyperactivity disorder (ADHD), inattentive type, 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 and Borderline personality disorder F60.3 [facility] [address] [address] Dec, [facility] [address] [address] Nov, Paranoid schizophrenia F20.0 ; Posttraum atic stress disorder F43.10 ; Attention deficit hyperactivity disorder (ADHD), inattentive type, 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 and Borderline personality disorder F60.3 [facility] [address] [address] Nov, [facility] [address] [address] Oct, Paranoid schizophrenia F20.0 [facility] [address] [address] Oct, Paranoid schizophrenia F20.0 ; Posttraum atic stress disorder F43.10 ; Attention deficit hyperactivity disorder (ADHD), inattentive type, 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 ; Borderline personality disorder F60.3 and Other fdc (current) drug therapy Z79.899 [facility] [address] [address] Oct, [facility] [address] [address] Oct, [facility] [address] [address] Sep, [facility] [address] [address] Sep, Paranoid schizophrenia F20.0 ; Posttraum atic stress disorder F43.10 ; Attention deficit hyperactivity disorder (ADHD), inattentive type, 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 and Borderline personality disorder F60.3 [facility] [address] [address] Sep, Paranoid schizophrenia F20.0 [facility] [address] [address] Aug, Paranoid schizophrenia F20.0 ; Posttraum atic stress disorder F43.10 ; Attention deficit hyperactivity disorder (ADHD), inattentive type, 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 and Borderline personality disorder F60.3 [facility] [address] [address] Aug, Paranoid schizophrenia F20.0 ; Posttraum atic stress disorder F43.10 ; Attention deficit hyperactivity disorder (ADHD), inattentive type, 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 and Borderline personality disorder F60.3 [facility] [address] [address] Aug, [facility] [address] [place] [id number] Jul, Paranoid schizophrenia F20.0 ; Posttraum atic stress disorder F43.10 ; Attention deficit hyperactivity disorder (ADHD), inattentive type, 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 and Borderline personality disorder F60.3 [facility] [address] [address] Jul, Paranoid schizophrenia F20.0 [facility] [address] [address] Jul, Paranoid schizophrenia F20.0 ; Posttraum atic stress disorder F43.10 ; Attention deficit hyperactivity disorder (ADHD), inattentive type, 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 and Borderline personality disorder F60.3 [facility] [address] [address] Jun, Paranoid schizophrenia F20.0 ; Posttraum atic stress disorder F43.10 ; Attention deficit hyperactivity disorder (ADHD), inattentive type, 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 and Borderline personality disorder F60.3 [facility] [address] [address] May, Other fdc (current) drug therapy Z 79.899 [facility] [address] [address] May, [facility] [address] [address] May, [facility] [address] [address] May, Attention deficit hyperactivity disorder (ADHD), inattentive type, 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 [facility] [address] [address] May, [facility] [address] [address] May, Attention deficit hyperactivity disorder (ADHD), inattentive type, 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 [facility] [address] [address] May, Paranoid schizophrenia F20.0 ; Posttraum atic stress disorder F43.10 ; Attention deficit hyperactivity disorder (ADHD), inattentive type, 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 and Other fdc (current) drug therapy Z79.899 [facility] [address] [address] Apr, Paranoid schizophrenia F20.0 [facility] [address] [address] Apr, Paranoid schizophrenia F20.0 ; Posttraum atic stress disorder F43.10 and Attention deficit hyperactivity disorder (ADHD), inattentive type, 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 [facility] [address] [address] February, [facility] [address] [address] February, Paranoid schizophrenia F20.0 ; Posttraum atic stress disorder F43.10 and Attention deficit hyperactivity disorder (ADHD), inattentive type, 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 [facility] [address] [address] February, Paranoid schizophrenia F20.0 ; Posttraum atic stress disorder F43.10 and Attention deficit hyperactivity disorder (ADHD), inattentive type, 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 [facility] [address] [address] Jan, Paranoid schizophrenia F20.0 ; Posttraum atic stress disorder F43.10 and Attention deficit hyperactivity disorder (ADHD), inattentive type, 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 [facility] [address] [id number] Dec, Dental examination Z01.20 [facility] [address] [id number] Nov, Dental examination Z01.20 [facility] [address] [id number] Nov, Dental examination Z01.20 [facility] [address] [id number] Nov, Dental caries K02.9 [facility] [address] [address] 13 Nov, 2016 High risk medication use Z79.899 [facility] [address] [address] Nov, Paranoid schizophrenia F20.0 ; Posttraum atic stress disorder F43.10 ; Attention deficit hyperactivity disorder (ADHD), inattentive type, 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 and Borderline personality disorder in adult F60.3 [facility] [address] [place] [id number] [place] [id number] Oct, Dental caries K02.9 [facility] [address] [address] Sep, Paranoid schizophrenia F20.0 ; Posttraum atic stress disorder F43.10 and Attention deficit hyperactivity disorder (ADHD), inattentive type, 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 [facility] [address] [address] Aug, Paranoid schizophrenia F20.0 ; Posttraum atic stress disorder F43.10 and Attention deficit hyperactivity disorder (ADHD), inattentive type, 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 [facility] [address] [facility] [id number] [address] [place] [address] Aug, Strep throat J02.0 and Cough R05 [facility] [address] [address] Aug, [facility] [address] [address] Jul, Paranoid schizophrenia F20.0 ; Posttraum atic stress disorder F43.10 and Attention deficit hyperactivity disorder (ADHD), inattentive type, 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 [facility] [address] [address] Jul, [facility] [address] [address] Jun, Paranoid schizophrenia F20.0 ; Posttraum atic stress disorder F43.10 and Attention deficit hyperactivity disorder (ADHD), inattentive type, 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 [facility] [address] [id number] Sep, 2016 Dental examination Z01.20 [facility] [address] [address] Jun, [facility] [address] [address] May, Paranoid schizophrenia F20.0 [facility] [address] [address] May, Paranoid schizophrenia F20.0 ; Posttraum atic stress disorder F43.10 and Attention deficit hyperactivity disorder (ADHD), inattentive type, 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 [facility] [address] [address] May, [facility] [address] [address] May, Paranoid schizophrenia F20.0 [facility] [address] [address] May, [facility] [address] [address] May, Paranoid schizophrenia F20.0 [facility] [address] [address] May, Schizoaffective disorder, unspecified F2 5.9 [facility] [address] [address] May, Schizoaffective disorder, unspecified F2 5.9 [facility] [address] [address] May, [facility] [address] [address] May, Paranoid schizophrenia F20.0 [facility] [address] [address] May, Paranoid schizophrenia F20.0 ; Posttraum atic stress disorder F43.10 and Attention deficit hyperactivity disorder (ADHD), inattentive type, 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 [facility] [address] [address] Mar, [facility] [address] [address] Mar, Paranoid schizophrenia F20.0 ; Posttraum atic stress disorder F43.10 and Attention deficit hyperactivity disorder (ADHD), inattentive type, 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 [facility] [address] [address] Mar, Paranoid schizophrenia F20.0 [facility] [address] [address] Mar, Paranoid schizophrenia F20.0 ; Attention deficit hyperactivity disorder (ADHD), inattentive type, 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 and Posttraumatic stress disorder F43.10 [facility] [address] [address] Mar, [facility] [address] [address] Mar, Paranoid schizophrenia F20.0 ; Posttraum atic stress disorder F43.10 and Attention deficit hyperactivity disorder (ADHD), inattentive type, 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 [facility] [address] [address] February, [facility] [address] [address] February, [facility] [address] [address] February, [facility] [address] [address] February, [facility] [address] [address] Jan, Paranoid schizophrenia F20.0 [facility] [address] [id number] Jan, Dental examination Z01.20 [facility] [address] [id number] Jan, Dental caries K02.9 [facility] [address] [id number] Jan, Dental examination Z01.20 [facility] [address] [id number] Dec, Encounter for dental examination Z01.20 [facility] [address] [address] Dec, Paranoid schizophrenia F20.0 [facility] [address] [id number] Dec, Dental examination Z01.20 [facility] [address] [address] Dec, [facility] [address] [address] Dec, Paranoid schizophrenia F20.0 ; Posttraum atic stress disorder F43.10 and Attention deficit hyperactivity disorder (ADHD), inattentive type, 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 [facility] [address] [address] Nov, Schizoaffective disorder, unspecified F2 5.9 [facility] [address] [address] Oct, Paranoid schizophrenia F20.0 [facility] [address] [address] Oct, [facility] [address] [address] Sep, Paranoid schizophrenia F20.0 ; Posttraum atic stress disorder F43.10 and Attention deficit hyperactivity disorder (ADHD), inattentive type, 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 [facility] [address] [address] Sep, [facility] [address] [address] Sep, Paranoid schizophrenia F20.0 ; Posttraum atic stress disorder F43.10 and Attention deficit hyperactivity disorder (ADHD), inattentive type, 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 [facility] [address] [address] Aug, Paranoid schizophrenia F20.0 [facility] [address] [address] Aug, [facility] [address] [address] Aug, Posttraumatic stress disorder F43.10 ; P aranoid schizophrenia F20.0 and Attention deficit hyperactivity disorder (ADHD), inattentive type, 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 [facility] [address] [address] Jul, Bipolar disorder, unspecified F31.9 [facility] [address] [address] Jul, [facility] [address] [address] Jun, [facility] [address] [address] Jun, Schizoaffective disorder, chronic 295.72 ; Posttraumatic stress disorder 309.81 and Attention deficit disorder of childhood without mention of hyperactivity 314.00 [facility] [address] [address] May, [facility] [address] [address] May, [facility] [address] [address] May, Schizoaffective disorder, chronic 295.72 ; Posttraumatic stress disorder 309.81 ; Attention deficit disorder of childhood without mention of hyperactivity 314.00 and Bipolar disorder, unspecified 296.80 [facility] [address] [address] Apr, Schizoaffective disorder, chronic 295.72 [facility] [address] [address] Apr, [facility] [address] [id number] [place] [address] Apr, Schizoaffective disorder, chronic 295.72 ; Posttraumatic stress disorder 309.81 and Attention deficit disorder of childhood without mention of hyperactivity 314.00 [facility] [address] [id number] [place] [address] Mar, Disorganized schizophrenia, 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 [facility] [address] [address] Mar, [facility] [address] [address] Mar, [facility] [address] [address] Mar, [facility] [address] [address] Mar, [facility] [id number] [place] [address] February, Schizoaffective disorder, chronic 295.72 [facility] [address] [address] February, [facility] [address] [address] February, Attention deficit disorder of childhood without mention of hyperactivity 314.00 ; Posttraumatic stress disorder 309.81 and Schizoaffective disorder, chronic 295.72 [facility] [address] [id number] [place] [address] Jan, [facility] [id number] [place] [address] Jan, [facility] [address] [address] Jan, [facility] [address] [id number] [place] [address] Dec, [facility] [id number] [place] [address] Dec, [facility] [place] [facility] [address] [id number] [place] [address] Dec, [facility] [place] [facility] [address] [id number] [place] [address] Dec, [facility] [place] [facility] [address] [id number] [place] [address] Dec, 2014 [facility] [place] [facility] [address] [id number] [place] [address] Dec, 2014 [facility] [place] [facility] [address] [id number] [facility], [place] [address] Dec, [facility] [place] [facility] [address] [id number] [place] [address] Dec, 2014 [facility] [place] [facility] [address] [id number] [place] [address] Nov, 2014 [facility] [place] [facility] [address] [id number] [place] [address] Nov, 2014 [facility] [place] [facility] [address] [id number] [place] [address] Nov, 2014 [facility] [place] [facility] [address] [id number] [place] [address] Nov, 2014 [facility] [place] [facility] [address] [id number] [place] [address] Nov, 2014 [facility] [place] [facility] [address] [id number] [place] [address] Nov, 2014 [facility] [place] [facility] [address] [id number] [place] [address] Nov, 2014 [facility] [place] [facility] [address] [id number] [place] [address] Nov, 2014 [facility] [place] [facility] [address] [id number] [place] [address] Nov, 2014 [facility] [place] [facility] [address] [id number] [place] [address] Nov, 2014 [facility] [place] [facility] [address] [id number] [place] [address] 29 Oct, 2014 [facility] [place] [facility] [address] [id number] [place] [address] 29 Oct, 2014 [facility] [place] [facility] [address] [id number] [place] [address] Oct, [facility] [place] [facility] [address] [id number] [place] [address] 15 Oct, 2014 [facility] [place] [facility] [address] [id number] [place] [address] 15 Oct, 2014 [facility] [place] [facility] [address] [id number] [place] [address] Oct, [facility] [place] [facility] [address] [id number] [place] [address] Oct, [facility] [place] [facility] [address] [id number] [place] [address] 17 Sep, 2014 [facility] [place] [facility] [address] [id number] [place] [address] 17 Sep, 2014 [facility] [place] [facility] [address] [id number] [place] [address] 15 Sep, 2014 [facility] [place] [facility] [address] [id number] [place] [address] 15 Sep, 2014 [facility] [place] [facility] [address] [id number] [place] [address] 20 Aug, 2014 [facility] [place] [facility] [address] [id number] [place] [address] 20 Aug, 2014 [facility] [place] [facility] [address] [id number] [place] [address] 14 Aug, 2014 [facility] [place] [facility] [address] [id number] [place] [address] 14 Aug, 2014 [facility] [place] [facility] [address] [id number] [place] [address] 14 Aug, 2014 [facility] [place] [facility] [address] [id number] [place] [address] Aug, [facility] [place] [facility] [address] [id number] [place] [address] 29 Jul, 2014 [facility] [place] [facility] [address] [id number] [place] [address] 29 Jul, 2014 [facility] [place] [facility] [address] [id number] [place] [address] Jul, [facility] [place] [facility] [address] [id number] [place] [address] 24 Jul, 2014 [facility] [place] [facility] [address] [id number] [place] [address] 15 Jul, 2014 [facility] [place] [facility] [address] [id number] [place] [address] 15 Jul, 2014 [facility] [place] [facility] [address] [id number] [place] [address] 27 Jun, 2013 [facility] [place] [facility] [address] [id number] [place] [address] 27 Sep, 2013 [facility] [place] [facility] [address] [id number] [place] [address] 26 Sep, 2013 [facility] [place] [facility] [address] [id number] [place] [address] 26 Sep, 2013 [facility] [place] [facility] [address] [id number] [place] [address] 26 Sep, 2013 [facility] [place] [facility] [address] [id number] [place] [address] 26 Sep, 2013 [facility] [place] [facility] [address] [id number] [place] [address] 16 Sep, 2013 [facility] [place] [facility] [address] [id number] [place] [address] 16 Sep, 2013 [facility] [place] [facility] [address] [id number] [place] [address] 16 Sep, 2013 [facility] [place] [facility] [address] [id number] [place] [address] 16 Sep, 2013 [facility] [place] [facility] [address] [id number] [place] [address] Jun, [facility] [place] [facility] [address] [id number] [facility], [place] [address] May, [facility] [place] [facility] [address] [facility] [id number] [place] [address] May, [facility] [place] [facility] [address] [facility] [id number] [facility], [place] [address] May, [facility] [place] [facility] [address] [facility] [id number] [place] [address] May, [facility] [place] [facility] [address] [facility] [id number] [place] [address] May, [facility] [place] [facility] [address] [facility] [id number] [place] [address] May, [facility] [place] [facility] [address] [id number] [facility], [place] [address] May, [facility] [place] [facility] [address] [id number] [facility], [place] [address] May, [facility] [place] [facility] [address] [facility] [id number] [facility], [place] [address] May, [facility] [place] [facility] [address] [facility] [id number] [facility], [place] [address] May, [facility] [place] [facility] [address] [facility] [id number] [place] [address] Apr, [facility] [place] [facility] [address] [id number] [facility], [place] [address] Apr, [facility] [place] [facility] [address] [facility] [id number] [facility], [place] [address] Apr, [facility] [place] [facility] [address] [id number] [place] [address] Apr, [facility] [place] [facility] [address] [facility] [id number] [facility], [place] [address] Apr, [facility] [place] [facility] [address] [id number] [facility], [place] [address] Apr, [facility] [place] [facility] [address] [facility] [id number] [facility], [place] [address] 17 Apr, 2014 [facility] [place] [facility] [address] [facility] [id number] [facility], [place] [address] 15 Apr, 2014 [facility] [place] [facility] [address] [facility] [id number] [place] [address] 15 Apr, 2014 [facility] [place] [facility] [address] [facility] [id number] [place] [address] Apr, [facility] [place] [facility] [address] [facility] [id number] [facility], [place] [address] Mar, [facility] [place] [facility] [address] [facility] [id number] [place] [address] Mar, [facility] [place] [facility] [address] [id number] [place] [address] 25 Mar, 2014 [facility] [place] [facility] [address] [id number] [place] [address] 24 Mar, 2014 [facility] [place] [facility] [address] [id number] [place] [address] 20 Mar, 2014 [facility] [place] [facility] [address] [facility] [id number] [place] [address] 18 Mar, 2014 [facility] [place] [facility] [address] [id number] [place] [address] 18 Mar, 2014 [facility] [place] [facility] [address] [id number] [place] [address] 16 Mar, 2014 [facility] [place] [facility] [address] [facility] [id number] [place] [address] 16 Mar, 2014 [facility] [place] [facility] [address] [facility] [id number] [place] [address] 13 Mar, 2014 [facility] [place] [facility] [address] [id number] [place] [address] 13 Mar, 2014 [facility] [place] [facility] [address] [facility] [id number] [place] [address] 11 Mar, 2014 [facility] [place] [facility] [address] [id number] [place] [address] Mar, [facility] [place] [facility] [address] [id number] [place] [address] Mar, [facility] [place] [facility] [address] [id number] [place] [address] Mar, [facility] [place] [facility] [address] [id number] [place] [address] Mar, [facility] [place] [facility] [address] [id number] [place] [address] Mar, [facility] [place] [facility] [address] [facility] [id number] [place] [address] Mar, [facility] [place] [facility] [address] [id number] [place] [address] Mar, [facility] [place] [facility] [address] [id number] [place] [address] Mar, [facility] [place] [facility] [address] [id number] [place] [address] February, [facility] [place] [facility] [address] [id number] [place] [address] February, [facility] [place] [facility] [address] [id number] [place] [address] February, [facility] [place] [facility] [address] [id number] [place] [address] February, [facility] [place] [facility] [address] [id number] [place] [address] February, [facility] [place] [facility] [address] [id number] [place] [address] February, [facility] [place] [facility] [address] [id number] [place] [address] February, [facility] [place] [facility] [address] [id number] [place] [address] February, [facility] [place] [facility] [address] [id number] [place] [address] February, [facility] [place] [facility] [address] [id number] [place] [address] February, [facility] [place] [facility] [address] [facility] [id number] [facility], [place] [address] February, [facility] [place] [facility] [address] [facility] [id number] [place] [address] February, [facility] [place] [facility] [address] [id number] [place] [address] February, [facility] [place] [facility] [address] [id number] [place] [address] February, [facility] [place] [facility] [address] [facility] [id number] [facility], [place] [address] February, [facility] [place] [facility] [address] [id number] [place] [address] February, [facility] [place] [facility] [address] [id number] [place] [address] February, [facility] [place] [facility] [address] [id number] [place] [address] February, [facility] [place] [facility] [address] [id number] [place] [address] February, [facility] [place] [facility] [address] [id number] [place] [address] February, [facility] [place] [facility] [address] [id number] [place] [address] February, [facility] [place] [facility] [address] [id number] [place] [address] Jan, [facility] [place] [facility] [address] [facility] [id number] [facility], [place] [address] Jan, [facility] [place] [facility] [address] [id number] [place] [address] Jan, [facility] [place] [facility] [address] [id number] [place] [address] Jan, [facility] [place] [facility] [address] [id number] [place] [address] Jan, [facility] [place] [facility] [address] [facility] [id number] [place] [address] 18 Jan, 2014 [facility] [place] [facility] [address] [facility] [id number] [place] [address] 10 Jan, 2014 [facility] [place] [facility] [address] [id number] [place] [address] 10 Jan, 2014 [facility] [place] [facility] [address] [id number] [place] [address] 21 Dec, 2013 [facility] [place] [facility] [address] [id number] [place] [address] 20 Dec, 2013 [facility] [place] [facility] [address] [id number] [place] [address] 20 Dec, 2013 [facility] [place] [facility] [address] [id number] [place] [address] 19 Dec, 2013 [facility] [place] [facility] [address] [id number] [place] [address] 19 Dec, 2013 [facility] [place] [facility] [address] [id number] [place] [address] 15 Dec, 2013 [facility] [place] [facility] [address] [id number] [place] [address] 15 Dec, 2013 [facility] [place] [facility] [address] [id number] [place] [address] 11 Dec, 2013 [facility] [place] [facility] [address] [id number] [place] [address] 10 Dec, 2013 [facility] [place] [facility] [address] [id number] [place] [address] 10 Dec, 2013 [facility] [place] [facility] [address] [facility] [id number] [place] [address] 18 Nov, 2013 [facility] [place] [facility] [address] [id number] [place] [address] 17 Nov, 2013 [facility] [place] [facility] [address] [id number] [place] [address] 17 Nov, 2013 [facility] [place] [facility] [address] [id number] [place] [address] Nov, [facility] [place] [facility] [address] [id number] [place] [address] Nov, [facility] [place] [facility] [address] [id number] [place] [address] Oct, [facility] [place] [facility] [address] [id number] [place] [address] Oct, [facility] [place] [facility] [address] [id number] [place] [address] Oct, [facility] [place] [facility] [address] [id number] [place] [address] Sep, [facility] [place] [facility] [address] [id number] [place] [address] Sep, [facility] [place] [facility] [address] [id number] [place] [address] Sep, [facility] [place] [facility] [address] [id number] [place] [address] Sep, [facility] [place] [facility] [address] [id number] [place] [address] Aug, [facility] [place] [facility] [address] [id number] [place] [address] Aug, [facility] [place] [facility] [address] [id number] [place] [address] Jul, [facility] [place] [facility] [address] [id number] [place] [address] Jul, [facility] [place] [facility] [address] [id number] [place] [address] Jul, [facility] [place] [facility] [address] [id number] [place] [address] Jul, [facility] [place] [facility] [address] [id number] [place] [address] Jul, [facility] [place] [facility] [address] [id number] [place] [address] Jun, [facility] [place] [facility] [address] [id number] [place] [address] 25 Jun, 2013 [facility] [place] [facility] [address] [id number] [place] [address] 19 Jun, 2013 [facility] [place] [facility] [address] [id number] [place] [address] 18 Jun, 2013 [facility] [place] [facility] [address] [id number] [place] [address] 16 Jun, 2013 [facility] [place] [facility] [address] [id number] [place] [address] 12 Jun, 2013 [facility] [place] [facility] [address] [id number] [place] [address] 11 Jun, 2013 [facility] [place] [facility] [address] [id number] [place] [address] May, [facility] [address] [id number] [place] [address] May, [facility] [address] [id number] [place] [address] Apr, [facility] [address] [id number] [place] [address] Apr, [facility] [address] [id number] [place] [address] Apr, [facility] [address] [id number] [place] [address] Mar, [facility] [address] [id number] [place] [address] Mar, [facility] [address] [id number] [place] [address] February, [facility] [address] [id number] [place] [address] February, [facility] [address] [id number] [place] [address] February, [facility] [address] [id number] [place] [address] February, [facility] [address] [id number] [place] [address] Jan, [facility] [address] [id number] [place] [address] 17 Jan, 2013 [facility] [address] [id number] [place] [address] 16 Jan, 2013 [facility] [address] [id number] [place] [address] 29 Dec, 2012 [facility] [address] [id number] [place] [address] Dec, [facility] [address] [id number] [place] [address] Dec, [facility] [address] [id number] [place] [address] Dec, [facility] [address] [id number] [place] [address] Nov, [facility] [address] [id number] [place] [address] Nov, [facility] [address] [id number] [place] [address] Oct, [facility] [address] [id number] [place] [address] Oct, [facility] [address] [id number] [place] [address] Oct, [facility] [address] [id number] [place] [address] Oct, [facility] [address] [id number] [place] [address] Aug, [facility] [address] [id number] [place] [address] Aug, [facility] [address] [id number] [place] [address] Jun, [facility] [address] [id number] [place] [address] May, [facility] [address] [facility] [id number] [place] [address] May, [facility] [address] [id number] [place] [address] Apr, [facility] [address] [id number] [place] [address] Apr, [facility] [address] [id number] [place] [address] Apr, [facility] [address] [facility] [id number] [place] [address] Mar, [facility] [address] [id number] [place] [address] Mar, [facility] [address] [id number] [place] [address] Mar, [facility] [address] [id number] [place] [address] Mar, [facility] [address] [id number] [place] [address] Mar, [facility] [address] [id number] [place] [address] February, [facility] [address] [id number] [place] [address] February, [facility] [address] [id number] [place] [address] February, [facility] [address] [id number] [place] [address] February, [facility] [address] [id number] [place] [address] February, [facility] [address] [id number] [place] [address] February, [facility] [address] [id number] [place] [address] February, [facility] [address] [id number] [place] [address] 25 Jan, 2012 [facility] [address] [facility] [id number] [facility] [place] [address] 18 Jan, 2012 [facility] [address] [id number] [place] [address] 17 Jan, 2012 [facility] [address] [id number] [facility], [place] [address] 13 Jan, 2012 [facility] [address] [id number] [place] [address] 10 Jan, 2012 [facility] [address] [id number] [facility], [place], [place] [address] 04 Jan, 2012 [facility] [address] [id number] [place] [address] 30 Dec, 2011 [facility] [address] [id number] [place] [address] 24 Dec, 2011 [facility] [address] [id number] [place] [address] 20 Dec, 2011 [facility] [address] [id number] [facility], [place] [address] 13 Dec, 2011 [facility] [address] [id number] [place] [address] 06 Dec, 2011 [facility] [address] [id number] [place] [address] 28 Nov, 2011 [facility] [address] [id number] [place] [address] 27 Nov, 2011 [facility] [address] [id number] [facility], [place] [address] 25 Nov, 2011 [facility] [address] [id number] [place] [address] 14 Nov, 2011 [facility] [address] [id number] [place] [address] 10 Nov, 2011 [facility] [address] [id number] [place] [address] Nov, [facility] [address] [id number] [place] [address] Oct, [facility] [address] [id number] [place] [address] Oct, [facility] [address] [id number] [place] [address] Oct, [facility] [address] [id number] [place] [address] Oct, [facility] [address] [id number] [place] [address] Oct, [facility] [address] [id number] [place] [address] Sep, [facility] [address] [id number] [place] [address] Sep, [facility] [address] [id number] [place] [address] Sep, [facility] [address] [id number] [place] [address] Sep, [facility] [address] [id number] [place] [address] Sep, [facility] [address] [id number] [place] [address] Sep, [facility] [address] [id number] [place] [address] Sep, [facility] [address] [id number] [place] [address] Sep, [facility] [address] [id number] [place] [address] Sep, [facility] [address] [id number] [place] [address] Aug, [facility] [address] [id number] [place] [address] Aug, [facility] [address] [id number] [place] [address] Aug, [facility] [address] [id number] [place] [address] Aug, [facility] [address] [id number] [place] [address] Aug, [facility] [address] [id number] [place] [address] Aug, [facility] [address] [id number] [place] [address] Aug, [facility] [address] [id number] [place] [address] Aug, [facility] [address] [id number] [place] [address] Aug, [facility] [address] [id number] [place] [address] Aug, [facility] [address] [id number] [place] [address] Aug, [facility] [address] [id number] [place] [address] Aug, [facility] [address] [id number] [place] [address] Jul, [facility] [address] [id number] [place] [address] Jul, [facility] [address] [id number] [place] [address] Jul, [facility] [address] [id number] [place] [address] Jul, [facility] [address] [id number] [place] [address] Jul, [facility] [address] [id number] [place] [address] Jul, [facility] [address] [id number] [place] [address] 18 Jul, 2011 [facility] [address] [id number] [place] [address] Jul, [facility] [id number] [place] [address] Jul, [facility] [id number] [place] [address] Jul, [facility] [address] [id number] [place] [address] Nov, [facility] [id number] [place] [address] Aug, [facility] [address] [address] Aug, [facility] [id number] [place] [address] Aug, [facility] [id number] [place] [address] Aug, [facility] [id number] [place] [address] Jul, IMMUNIZATIONS No Known Immunizations SOCIAL HISTORY [...] Suicide attempt by hanging 2015 Hospitalization History [facility] 01/30/2018-02/10/20 08 Hospitalization History [facility] 05/04/18- Hospitalization History Michelle- [facility] - 5 days
--- OUTSIDE RECORDS SUMMARY | 2020-04-04 01:48 | XMS REPORT ---
Author Author Kaila Onofre Doctor Organization [facility] Address Unknown Phone Unavailable Care Team Providers Care Compliance Specialist Name Role Phone Migration, Doctor Unavailable Unavailable PROBLEMS Type Condition ICD9-CM Code [id number] Code Onset Dates Condition S tatus SNOMED Code Problem Paranoid schizophrenia F20.0 Active 93953346 Problem Borderline personality disorder F60.3 Active 59960172 Problem Schizoaffective disorder, depressive type F25.1 Active 75176952 Problem Schizoaffective disorder, unspecified F25.9 Active 53746760 Problem Attention deficit hyperactivity disorder (ADHD), inattentive type, 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 93484290 Problem Posttraumatic stress disorder F43.10 Active 67432104 Problem High risk medication use Z79.899 Activ e [id number] ALLERGIES No Information ENCOUNTERS Encounter Location Date Diagnosis [place] [address] [address] Nov, [place] [address] [address] Nov, [place] [address] [address] Oct, Paranoid schizophrenia F20.0 ; Attention deficit hyperactivity disorder (ADHD), inattentive type, 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 ; Posttraumatic stress disorder F43.10 and Borderline personality disorder F60.3 [facility] [address] [address] Jul, [facility] [address] [address] Jun, Paranoid schizophrenia F20.0 ; Other ktaherin g term (current) 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 Z79.899 ; Attention deficit hyperactivity disorder (ADHD), inattentive type, 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 ; Posttraumatic stress disorder F43.10 and Borderline personality disorder F60.3 [facility] [address] [address] Jun, Paranoid schizophrenia F20.0 ; Attention deficit hyperactivity disorder (ADHD), inattentive type, 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 ; Posttraumatic stress disorder F43.10 ; Borderline personality disorder F60.3 and Other jail (current) drug therapy Z79.899 [facility] [address] [address] Apr, Paranoid schizophrenia F20.0 ; Posttraum atic stress disorder F43.10 ; Attention deficit hyperactivity disorder (ADHD), inattentive type, 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 and Borderline personality disorder F60.3 [facility] [address] [address] Apr, Paranoid schizophrenia F20.0 [facility] [address] [address] Apr, Paranoid schizophrenia F20.0 ; Posttraum atic stress disorder F43.10 ; Attention deficit hyperactivity disorder (ADHD), inattentive type, 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 and Borderline personality disorder F60.3 [facility] [address] [address] Mar, Paranoid schizophrenia F20.0 [facility] [address] [address] Mar, Paranoid schizophrenia F20.0 ; Posttraum atic stress disorder F43.10 ; Attention deficit hyperactivity disorder (ADHD), inattentive type, 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 and Borderline personality disorder F60.3 [facility] [address] [address] February, Paranoid schizophrenia F20.0 [facility] [address] [address] Jan, Paranoid schizophrenia F20.0 ; Posttraum atic stress disorder F43.10 ; Attention deficit hyperactivity disorder (ADHD), inattentive type, 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 and Borderline personality disorder F60.3 [facility] [address] [address] Dec, Paranoid schizophrenia F20.0 ; Posttraum atic stress disorder F43.10 ; Attention deficit hyperactivity disorder (ADHD), inattentive type, 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 and Borderline personality disorder F60.3 [facility] [address] [address] Dec, Paranoid schizophrenia F20.0 ; Posttraum atic stress disorder F43.10 ; Attention deficit hyperactivity disorder (ADHD), inattentive type, 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 and Borderline personality disorder F60.3 [facility] [address] [place] [id number] [place] [address] Oct, Paranoid schizophrenia F20.0 ; Posttraum atic stress disorder F43.10 ; Attention deficit hyperactivity disorder (ADHD), inattentive type, 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 and Borderline personality disorder F60.3 [facility] [address] [address] Oct, Paranoid schizophrenia F20.0 ; Posttraum atic stress disorder F43.10 ; Attention deficit hyperactivity disorder (ADHD), inattentive type, 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 and Borderline personality disorder F60.3 [facility] [address] [id number] [place] [address] May, [facility] [address] [address] May, Paranoid schizophrenia F20.0 [facility] [address] [address] May, Paranoid schizophrenia F20.0 ; Posttraum atic stress disorder F43.10 ; Attention deficit hyperactivity disorder (ADHD), inattentive type, 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 and Borderline personality disorder F60.3 [facility] [address] [address] Apr, [facility] [address] [address] Apr, Paranoid schizophrenia F20.0 ; Posttraum atic stress disorder F43.10 ; Attention deficit hyperactivity disorder (ADHD), inattentive type, 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 and Borderline personality disorder F60.3 [facility] [address] [address] Apr, [facility] [address] [address] Apr, Schizoaffective disorder, depressive typ e F25.1 and Borderline personality disorder F60.3 [facility] [address] [address] Apr, Paranoid schizophrenia F20.0 ; Posttraum atic stress disorder F43.10 ; Attention deficit hyperactivity disorder (ADHD), inattentive type, 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 and Borderline personality disorder F60.3 [facility] [address] [address] Apr, [facility] [address] [address] Apr, Paranoid schizophrenia F20.0 ; Posttraum atic stress disorder F43.10 ; Attention deficit hyperactivity disorder (ADHD), inattentive type, 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 and Borderline personality disorder F60.3 [facility] [address] [address] Apr, [facility] [address] [address] Mar, Paranoid schizophrenia F20.0 [facility] [address] [address] Mar, [facility] [address] [address] Mar, Paranoid schizophrenia F20.0 ; Posttraum atic stress disorder F43.10 ; Attention deficit hyperactivity disorder (ADHD), inattentive type, 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 and Borderline personality disorder F60.3 [facility] [address] [address] February, Paranoid schizophrenia F20.0 [facility] [address] [address] February, Paranoid schizophrenia F20.0 ; Posttraum atic stress disorder F43.10 ; Attention deficit hyperactivity disorder (ADHD), inattentive type, 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 and Borderline personality disorder F60.3 [facility] [address] [address] February, Paranoid schizophrenia F20.0 ; Posttraum atic stress disorder F43.10 ; Attention deficit hyperactivity disorder (ADHD), inattentive type, 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 and Borderline personality disorder F60.3 [facility] [address] [address] February, [facility] [address] [address] February, Paranoid schizophrenia F20.0 [facility] [address] [address] February, Paranoid schizophrenia F20.0 [facility] [address] [address] February, Paranoid schizophrenia F20.0 ; Posttraum atic stress disorder F43.10 ; Attention deficit hyperactivity disorder (ADHD), inattentive type, 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 and Borderline personality disorder F60.3 [facility] [address] [address] Jan, Paranoid schizophrenia F20.0 ; Posttraum atic stress disorder F43.10 ; Attention deficit hyperactivity disorder (ADHD), inattentive type, 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 and Borderline personality disorder F60.3 [facility] [address] [address] Jan, Paranoid schizophrenia F20.0 [facility] [address] [address] Jan, Paranoid schizophrenia F20.0 [facility] [address] [address] Jan, Paranoid schizophrenia F20.0 ; Posttraum atic stress disorder F43.10 ; Attention deficit hyperactivity disorder (ADHD), inattentive type, 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 and Borderline personality disorder F60.3 [facility] [address] [address] Dec, [facility] [address] [address] Nov, Paranoid schizophrenia F20.0 ; Posttraum atic stress disorder F43.10 ; Attention deficit hyperactivity disorder (ADHD), inattentive type, 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 and Borderline personality disorder F60.3 [facility] [address] [address] Nov, [facility] [address] [address] Oct, Paranoid schizophrenia F20.0 [facility] [address] [address] Oct, Paranoid schizophrenia F20.0 ; Posttraum atic stress disorder F43.10 ; Attention deficit hyperactivity disorder (ADHD), inattentive type, 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 ; Borderline personality disorder F60.3 and 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 Z79.899 [facility] [address] [address] Oct, [facility] [address] [address] Oct, [facility] [address] [address] Sep, [facility] [address] [address] Sep, Paranoid schizophrenia F20.0 ; Posttraum atic stress disorder F43.10 ; Attention deficit hyperactivity disorder (ADHD), inattentive type, 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 and Borderline personality disorder F60.3 [facility] [address] [address] Sep, Paranoid schizophrenia F20.0 [facility] [address] [address] Aug, Paranoid schizophrenia F20.0 ; Posttraum atic stress disorder F43.10 ; Attention deficit hyperactivity disorder (ADHD), inattentive type, 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 and Borderline personality disorder F60.3 [facility] [address] [address] Aug, Paranoid schizophrenia F20.0 ; Posttraum atic stress disorder F43.10 ; Attention deficit hyperactivity disorder (ADHD), inattentive type, 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 and Borderline personality disorder F60.3 [facility] [address] [address] Aug, [facility] [address] [address] Jul, Paranoid schizophrenia F20.0 ; Posttraum atic stress disorder F43.10 ; Attention deficit hyperactivity disorder (ADHD), inattentive type, 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 and Borderline personality disorder F60.3 [facility] [address] [address] Jul, Paranoid schizophrenia F20.0 [facility] [address] [address] Jul, Paranoid schizophrenia F20.0 ; Posttraum atic stress disorder F43.10 ; Attention deficit hyperactivity disorder (ADHD), inattentive type, 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 and Borderline personality disorder F60.3 [facility] [address] [place] [id number] [place] [address] Jun, Paranoid schizophrenia F20.0 ; Posttraum atic stress disorder F43.10 ; Attention deficit hyperactivity disorder (ADHD), inattentive type, 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 and Borderline personality disorder F60.3 [facility] [address] [address] May, 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 Z 79.899 [facility] [address] [address] May, [facility] [address] [address] May, [facility] [address] [address] May, Attention deficit hyperactivity disorder (ADHD), inattentive type, 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 [facility] [address] [place] [address] [place] [address] May, [facility] [address] [address] May, Attention deficit hyperactivity disorder (ADHD), inattentive type, 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 [facility] [address] [address] May, Paranoid schizophrenia F20.0 ; Posttraum atic stress disorder F43.10 ; Attention deficit hyperactivity disorder (ADHD), inattentive type, 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 and 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 Z79.899 [facility] [address] [place] [address] [place] [address] Apr, Paranoid schizophrenia F20.0 [facility] [address] [place] [id number] [place] [address] Apr, Paranoid schizophrenia F20.0 ; Posttraum atic stress disorder F43.10 and Attention deficit hyperactivity disorder (ADHD), inattentive type, 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 [facility] [address] [address] February, [facility] [address] [place] [id number] February, Paranoid schizophrenia F20.0 ; Posttraum atic stress disorder F43.10 and Attention deficit hyperactivity disorder (ADHD), inattentive type, 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 [facility] [address] [address] February, Paranoid schizophrenia F20.0 ; Posttraum atic stress disorder F43.10 and Attention deficit hyperactivity disorder (ADHD), inattentive type, 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 [facility] [address] [address] Jan, Paranoid schizophrenia F20.0 ; Posttraum atic stress disorder F43.10 and Attention deficit hyperactivity disorder (ADHD), inattentive type, 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 [facility] [address] [id number] Dec, Dental examination Z01.20 [facility] [address] [id number] Nov, Dental examination Z01.20 [facility] [address] [id number] Nov, Dental examination Z01.20 [facility] [address] [id number] Nov, Dental caries K02.9 [facility] [address] [address] 13 Nov, 2016 High risk medication use Z79.899 [facility] [address] [place] [id number] Nov, Paranoid schizophrenia F20.0 ; Posttraum atic stress disorder F43.10 ; Attention deficit hyperactivity disorder (ADHD), inattentive type, 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 and Borderline personality disorder in adult F60.3 [facility] [address] [id number] Oct, Dental caries K02.9 [facility] [address] [place] [id number] 05 Sep, 2016 Paranoid schizophrenia F20.0 ; Posttraum atic stress disorder F43.10 and Attention deficit hyperactivity disorder (ADHD), inattentive type, 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 [facility] [address] [address] Jul, [facility] [address] [address] 28 Jun, 2016 Paranoid schizophrenia F20.0 ; Posttraum atic stress disorder F43.10 and Attention deficit hyperactivity disorder (ADHD), inattentive type, 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 [facility] [address] [id number] Jun, Dental examination Z01.20 [facility] [address] [address] Jun, [facility] [address] [address] May, Paranoid schizophrenia F20.0 [facility] [address] [id number] [place] [address] May, Paranoid schizophrenia F20.0 ; Posttraum atic stress disorder F43.10 and Attention deficit hyperactivity disorder (ADHD), inattentive type, 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 [facility] [address] [id number] [place] [address] May, [facility] [address] [address] May, Paranoid schizophrenia F20.0 [facility] [address] [place] [id number] [place] [address] May, [facility] [address] [place] [id number] [place] [address] May, Paranoid schizophrenia F20.0 [facility] [address] [place] [id number] [place] [address] May, Schizoaffective disorder, unspecified F2 5.9 [facility] [address] [place] [id number] [place] [address] May, Schizoaffective disorder, unspecified F2 5.9 [facility] [address] [place] [id number] [place] [address] May, [facility] [address] [place] [id number] [place] [address] May, Paranoid schizophrenia F20.0 [facility] [address] [place] [id number] [place] [address] May, Paranoid schizophrenia F20.0 ; Posttraum atic stress disorder F43.10 and Attention deficit hyperactivity disorder (ADHD), inattentive type, 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 [facility] [address] [place] [id number] [place] [address] Mar, [facility] [address] [place] [id number] [place] [address] Mar, Paranoid schizophrenia F20.0 ; Posttraum atic stress disorder F43.10 and Attention deficit hyperactivity disorder (ADHD), inattentive type, 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 [facility] [address] [address] Mar, Paranoid schizophrenia F20.0 [facility] [address] [address] Mar, Paranoid schizophrenia F20.0 ; Attention deficit hyperactivity disorder (ADHD), inattentive type, 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 and Posttraumatic stress disorder F43.10 [facility] [address] [address] Mar, [facility] [address] [address] Mar, Paranoid schizophrenia F20.0 ; Posttraum atic stress disorder F43.10 and Attention deficit hyperactivity disorder (ADHD), inattentive type, 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 [facility] [address] [address] February, [facility] [address] [address] February, [facility] [address] [address] February, [facility] [address] [address] February, [facility] [address] [address] Jan, Paranoid schizophrenia F20.0 [facility] [address] [id number] Jan, Dental examination Z01.20 [facility] [address] [id number] Jan, Dental caries K02.9 [facility] [address] [id number] Jan, Dental examination Z01.20 [facility] [address] [id number] Dec, Encounter for dental examination Z01.20 [facility] [address] [id number] [place] [address] 30 Dec, 2015 Paranoid schizophrenia F20.0 [facility] [address] [id number] [place] [id number] Dec, Dental examination Z01.20 [facility] [address] [id number] [place] [address] 07 Dec, 2015 [facility] [address] [address] 07 Dec, 2015 Paranoid schizophrenia F20.0 ; Posttraum atic stress disorder F43.10 and Attention deficit hyperactivity disorder (ADHD), inattentive type, 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 [facility] [address] [address] Nov, Schizoaffective disorder, unspecified F2 5.9 [facility] [address] [address] Oct, Paranoid schizophrenia F20.0 [facility] [address] [place] [address] [place] [address] Oct, [facility] [address] [address] Sep, Paranoid schizophrenia F20.0 ; Posttraum atic stress disorder F43.10 and Attention deficit hyperactivity disorder (ADHD), inattentive type, 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 [facility] [address] [address] Sep, [facility] [address] [address] Sep, Paranoid schizophrenia F20.0 ; Posttraum atic stress disorder F43.10 and Attention deficit hyperactivity disorder (ADHD), inattentive type, 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 [facility] [address] [place] [address] [address] [place] [address] Aug, Paranoid schizophrenia F20.0 [facility] [address] [address] Aug, [facility] [address] [address] Aug, Posttraumatic stress disorder F43.10 ; P aranoid schizophrenia F20.0 and Attention deficit hyperactivity disorder (ADHD), inattentive type, 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 [facility] [address] [address] Jul, Bipolar disorder, unspecified F31.9 [facility] [address] [address] Jul, [facility] [address] [address] Jun, [facility] [address] [address] Jun, Schizoaffective disorder, chronic 295.72 ; Posttraumatic stress disorder 309.81 and Attention deficit disorder of childhood without mention of hyperactivity 314.00 [facility] [address] [address] May, [facility] [address] [address] May, [facility] [address] [address] May, Schizoaffective disorder, chronic 295.72 ; Posttraumatic stress disorder 309.81 ; Attention deficit disorder of childhood without mention of hyperactivity 314.00 and Bipolar disorder, unspecified 296.80 [facility] [address] [address] Apr, Schizoaffective disorder, chronic 295.72 [facility] [address] [address] Apr, [facility] [address] [address] [address] Apr, Schizoaffective disorder, chronic 295.72 ; Posttraumatic stress disorder 309.81 and Attention deficit disorder of childhood without mention of hyperactivity 314.00 [facility] [id number] [place] [address] Mar, Disorganized schizophrenia, 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 [facility] [id number] [place] [address] Mar, [facility] [id number] [place] [address] Mar, [facility] [id number] [place] [address] Mar, [facility] [id number] [place] [address] Mar, [facility] [id number] [place] [address] February, Schizoaffective disorder, chronic 295.72 [facility] [id number] [place] [address] February, [facility] [id number] [place] [address] February, Attention deficit disorder of childhood without mention of hyperactivity 314.00 ; Posttraumatic stress disorder 309.81 and Schizoaffective disorder, chronic 295.72 [facility] [address] [id number] [place] [address] 29 Jan, 2015 [facility] [id number] [place] [address] 14 Jan, 2015 [facility] [id number] [place] [address] Jan, [facility] [id number] [place] [address] Dec, [facility] [id number] [place] [address] Dec, [facility] [id number] [place] [address] Dec, [facility] [id number] [place] [address] Dec, [facility] [place] [facility] [address] [id number] [place] [address] 10 Dec, 2014 [facility] [place] [facility] [address] [id number] [place] [address] Dec, [facility] [place] [facility] [address] [id number] [place] [address] Dec, [facility] [place] [facility] [address] [id number] [place] [address] Dec, [facility] [place] [facility] [address] [id number] [place] [address] Nov, [facility] [place] [facility] [address] [id number] [place] [address] Nov, [facility] [place] [facility] [address] [id number] [place] [address] Nov, [facility] [place] [facility] [address] [id number] [place] [address] Nov, [facility] [place] [facility] [address] [id number] [place] [address] Nov, [facility] [place] [facility] [address] [id number] [place] [address] Nov, [facility] [place] [facility] [address] [id number] [place] [address] Nov, [facility] [place] [facility] [address] [id number] [place] [address] Nov, [facility] [place] [facility] [address] [id number] [place] [address] Nov, [facility] [place] [facility] [address] [id number] [place] [address] Nov, [facility] [place] [facility] [address] [id number] [place] [address] Oct, [facility] [place] [facility] [address] [id number] [place] [address] Oct, [facility] [place] [facility] [address] [id number] [place] [address] Oct, [facility] [place] [facility] [address] [id number] [place] [address] 15 Oct, 2014 [facility] [place] [facility] [address] [id number] [place] [address] 15 Oct, 2014 [facility] [place] [facility] [address] [id number] [place] [address] Oct, [facility] [place] [facility] [address] [id number] [place] [address] Oct, [facility] [place] [facility] [address] [id number] [place] [address] Sep, [facility] [place] [facility] [address] [id number] [place] [address] 17 Sep, 2014 [facility] [place] [facility] [address] [id number] [place] [address] 15 Sep, 2014 [facility] [place] [facility] [address] [id number] [place] [address] 15 Sep, 2014 [facility] [place] [facility] [address] [id number] [place] [address] Aug, [facility] [place] [facility] [address] [id number] [place] [address] 20 Aug, 2014 [facility] [place] [facility] [address] [id number] [place] [address] 14 Aug, 2014 [facility] [place] [facility] [address] [id number] [place] [address] 14 Aug, 2014 [facility] [place] [facility] [address] [id number] [place] [address] 14 Aug, 2014 [facility] [place] [facility] [address] [id number] [place] [address] 14 Aug, 2014 [facility] [place] [facility] [address] [id number] [place] [address] 29 Jul, 2014 [facility] [place] [facility] [address] [id number] [place] [address] Jul, [facility] [place] [facility] [address] [id number] [place] [address] 24 Jul, 2013 [facility] [place] [facility] [address] [facility] [id number] [place] [address] 24 Jul, 2013 [facility] [place] [facility] [address] [facility] [id number] [place] [address] 15 Jul, 2014 [facility] [place] [facility] [address] [id number] [place] [address] 15 Jul, 2014 [facility] [place] [facility] [address] [facility] [id number] [place] [address] 27 Jun, 2013 [facility] [place] [facility] [address] [facility] [id number] [place] [address] 27 Jun, 2013 [facility] [place] [facility] [address] [id number] [place] [address] 26 Jun, 2013 [facility] [place] [facility] [address] [id number] [place] [address] 26 Jun, 2013 [facility] [place] [facility] [address] [id number] [place] [address] 26 Jun, 2013 [facility] [place] [facility] [address] [facility] [id number] [place] [address] 26 Jun, 2013 [facility] [place] [facility] [address] [id number] [place] [address] 16 Jun, 2013 [facility] [place] [facility] [address] [id number] [place] [address] 16 Jun, 2013 [facility] [place] [facility] [address] [id number] [place] [address] 16 Jun, 2013 [facility] [place] [facility] [address] [facility] [id number] [place] [address] 16 Jun, 2013 [facility] [place] [facility] [address] [id number] [place] [address] 04 Jun, 2013 [facility] [place] [facility] [address] [id number] [place] [address] May, [facility] [place] [facility] [address] [id number] [place] [address] May, [facility] [place] [facility] [address] [id number] [place] [address] May, [facility] [place] [facility] [address] [facility] [id number] [facility] [place] [address] May, [facility] [place] [facility] [address] [facility] [id number] [place] [address] May, [facility] [place] [facility] [address] [facility] [id number] [facility] [place] [address] May, [facility] [place] [facility] [address] [facility] [id number] [place] [address] May, [facility] [place] [facility] [address] [facility] [id number] [place] [address] May, [facility] [place] [facility] [address] [id number] [place] [address] May, [facility] [place] [facility] [address] [id number] [place] [address] May, [facility] [place] [facility] [address] [facility] [id number] [place] [address] Apr, [facility] [place] [facility] [address] [id number] [place] [address] Apr, [facility] [place] [facility] [address] [id number] [place] [address] Apr, [facility] [place] [facility] [address] [id number] [place] [address] Apr, [facility] [place] [facility] [address] [facility] [id number] [place] [address] Apr, [facility] [place] [facility] [address] [facility] [id number] [place] [address] Apr, [facility] [place] [facility] [address] [facility] [id number] [place] [address] Apr, [facility] [place] [facility] [address] [id number] [place] [address] Apr, [facility] [place] [facility] [address] [id number] [place] [address] 15 Apr, 2014 [facility] [place] [facility] [address] [facility] [id number] [facility] [place] [address] Apr, [facility] [place] [facility] [address] [facility] [id number] [facility] [place] [address] Mar, [facility] [place] [facility] [address] [id number] [facility] [place] [address] Mar, [facility] [place] [facility] [address] [facility] [id number] [facility] [place] [address] Mar, [facility] [place] [facility] [address] [facility] [id number] [facility] [place] [address] 24 Mar, 2014 [facility] [place] [facility] [address] [id number] [facility] [place] [address] Mar, [facility] [place] [facility] [address] [id number] [facility] [place] [address] 18 Mar, 2014 [facility] [place] [facility] [address] [id number] [facility] [place] [place] [address] 18 Mar, 2014 [facility] [place] [facility] [address] [id number] [facility] [place] [place] [address] 16 Mar, 2014 [facility] [place] [facility] [address] [id number] [place] [address] 16 Mar, 2014 [facility] [place] [facility] [address] [id number] [place] [address] 13 Mar, 2014 [facility] [place] [facility] [address] [id number] [place] [address] 13 Mar, 2014 [facility] [place] [facility] [address] [facility] [id number] [facility] [place] [address] 11 Mar, 2014 [facility] [place] [facility] [address] [id number] [place] [address] 11 Mar, 2014 [facility] [place] [facility] [address] [id number] [place] [address] 10 Mar, 2014 [facility] [place] [facility] [address] [id number] [place] [address] 09 Mar, 2014 [facility] [place] [facility] [address] [facility] [id number] [place] [address] Mar, [facility] [place] [facility] [address] [id number] [place] [address] Mar, [facility] [place] [facility] [address] [facility] [id number] [place] [address] Mar, [facility] [place] [facility] [address] [id number] [place] [address] Mar, [facility] [place] [facility] [address] [facility] [id number] [place] [address] Mar, [facility] [place] [facility] [address] [facility] [id number] [place] [address] February, [facility] [place] [facility] [address] [id number] [place] [address] February, [facility] [place] [facility] [address] [id number] [place] [address] February, [facility] [place] [facility] [address] [id number] [place] [address] February, [facility] [place] [facility] [address] [id number] [place] [address] February, [facility] [place] [facility] [address] [id number] [place] [address] February, [facility] [place] [facility] [address] [id number] [place] [address] February, [facility] [place] [facility] [address] [id number] [place] [address] February, [facility] [place] [facility] [address] [facility] [id number] [place] [address] February, [facility] [place] [facility] [address] [id number] [place] [address] February, [facility] [place] [facility] [address] [id number] [place] [address] February, [facility] [place] [facility] [address] [id number] [place] [address] February, [facility] [place] [facility] [address] [id number] [place] [address] February, [facility] [place] [facility] [address] [id number] [place] [address] February, [facility] [place] [facility] [address] [id number] [place] [address] February, [facility] [place] [facility] [address] [id number] [place] [address] February, [facility] [place] [facility] [address] [id number] [place] [address] February, [facility] [place] [facility] [address] [id number] [place] [address] February, [facility] [place] [facility] [address] [id number] [place] [address] February, [facility] [place] [facility] [address] [id number] [place] [address] February, [facility] [place] [facility] [address] [id number] [place] [address] February, [facility] [place] [facility] [address] [id number] [place] [address] Jan, [facility] [place] [facility] [address] [id number] [place] [address] Jan, [facility] [place] [facility] [address] [id number] [place] [address] Jan, [facility] [place] [facility] [address] [id number] [place] [address] Jan, [facility] [place] [facility] [address] [id number] [place] [address] Jan, [facility] [place] [facility] [address] [id number] [place] [address] Jan, [facility] [place] [facility] [address] [id number] [place] [address] Jan, [facility] [place] [facility] [address] [id number] [place] [address] 10 Jan, 2014 [facility] [place] [facility] [address] [facility] [id number] [facility] [place] [address] 21 Dec, 2013 [facility] [place] [facility] [address] [facility] [id number] [facility] [place] [address] 20 Dec, 2013 [facility] [place] [facility] [address] [id number] [facility] [place] [place] [address] 20 Dec, 2013 [facility] [place] [facility] [address] [id number] [place] [address] 19 Dec, 2013 [facility] [place] [facility] [address] [facility] [id number] [facility] [place] [address] 19 Dec, 2013 [facility] [place] [facility] [address] [id number] [place] [address] 15 Dec, 2013 [facility] [place] [facility] [address] [id number] [facility] [place] [place] [address] 15 Dec, 2013 [facility] [place] [facility] [address] [id number] [facility] [place] [place] [address] 11 Dec, 2013 [facility] [place] [facility] [address] [id number] [facility] [place] [address] 10 Dec, 2013 [facility] [place] [facility] [address] [id number] [facility] [place] [address] 10 Dec, 2013 [facility] [place] [facility] [address] [id number] [place] [address] 18 Nov, 2013 [facility] [place] [facility] [address] [id number] [facility] [place] [place] [address] 17 Nov, 2013 [facility] [place] [facility] [address] [facility] [id number] [facility] [place] [place] [address] 17 Nov, 2013 [facility] [place] [facility] [address] [id number] [place] [address] 05 Nov, 2013 [facility] [place] [facility] [address] [id number] [place] [address] 05 Nov, 2013 [facility] [place] [facility] [address] [id number] [place] [address] Oct, [facility] [place] [facility] [address] [id number] [place] [address] Oct, [facility] [place] [facility] [address] [id number] [place] [address] Oct, [facility] [place] [facility] [address] [id number] [place] [address] Sep, [facility] [place] [facility] [address] [id number] [place] [address] Sep, [facility] [place] [facility] [address] [id number] [place] [address] Sep, [facility] [place] [facility] [address] [id number] [place] [address] Sep, [facility] [place] [facility] [address] [id number] [place] [address] Aug, [facility] [place] [facility] [id number] [place] [address] Aug, [facility] [place] [facility] [address] [id number] [place] [address] Jul, [facility] [place] [facility] [address] [id number] [place] [address] Jul, [facility] [place] [facility] [address] [id number] [place] [address] Jul, [facility] [place] [facility] [id number] [place] [address] Jul, [facility] [place] [facility] [address] [id number] [place] [address] Jul, [facility] [place] [facility] [address] [id number] [place] [address] Jun, [facility] [place] [facility] [id number] [place] [address] 25 Jun, 2012 [facility] [place] [facility] [address] [id number] [place] [address] 19 Jun, 2012 [facility] [place] [facility] [address] [id number] [place] [address] 18 Jun, 2013 [facility] [place] [facility] [address] [facility] [id number] [facility] [place] [address] 16 Jun, 2013 [facility] [place] [facility] [address] [facility] [id number] [facility] [place] [address] 12 Jun, 2013 [facility] [place] [facility] [address] [id number] [place] [address] 11 Jun, 2013 [facility] [place] [facility] [address] [id number] [facility] [place] [address] 30 May, 2013 [facility] [place] [facility] [address] [facility] [id number] [place] [address] May, [facility] [place] [facility] [address] [id number] [place] [address] Apr, [facility] [place] [facility] [address] [id number] [place] [address] Apr, [facility] [place] [facility] [address] [id number] [place] [address] Apr, [facility] [place] [facility] [address] [id number] [place] [address] Mar, [facility] [place] [facility] [address] [id number] [place] [address] Mar, [facility] [place] [facility] [address] [id number] [place] [address] February, [facility] [place] [facility] [address] [id number] [place] [address] February, [facility] [place] [facility] [address] [id number] [place] [address] February, [facility] [place] [facility] [address] [id number] [place] [address] February, [facility] [place] [facility] [address] [id number] [place] [address] Jan, [facility] [place] [facility] [address] [id number] [place] [address] Jan, [facility] [place] [facility] [address] [id number] [facility] [place] [address] 16 Jan, 2013 [facility] [place] [facility] [address] [id number] [place] [address] 29 Dec, 2012 [facility] [place] [facility] [address] [id number] [place] [address] Dec, [facility] [place] [facility] [address] [id number] [place] [address] Dec, [facility] [place] [facility] [address] [id number] [place] [address] 08 Dec, 2012 [facility] [place] [facility] [address] [id number] [place] [address] Nov, [facility] [place] [facility] [address] [id number] [place] [address] Nov, [facility] [place] [facility] [address] [id number] [place] [address] Oct, [facility] [place] [facility] [id number] [place] [address] Oct, [facility] [place] [facility] [address] [id number] [place] [address] Oct, [facility] [place] [facility] [address] [id number] [place] [address] Oct, [facility] [place] [facility] [address] [id number] [place] [address] Aug, [facility] [place] [facility] [address] [id number] [place] [address] Aug, [facility] [place] [facility] [address] [id number] [place] [address] Jun, [facility] [place] [facility] [address] [id number] [place] [address] May, [facility] [place] [facility] [address] [id number] [place] [address] May, [facility] [place] [facility] [address] [id number] [place] [address] Apr, [facility] [place] [facility] [address] [id number] [place] [address] Apr, [facility] [place] [facility] [address] [id number] [place] [address] Apr, [facility] [place] [facility] [address] [id number] [place] [address] Mar, [facility] [place] [facility] [address] [id number] [place] [address] Mar, [facility] [place] [facility] [address] [id number] [place] [address] Mar, [facility] [place] [facility] [address] [id number] [place] [address] Mar, [facility] [place] [facility] [address] [id number] [place] [address] Mar, [facility] [place] [facility] [address] [id number] [place] [address] February, [facility] [place] [facility] [address] [id number] [place] [address] February, [facility] [place] [facility] [address] [id number] [place] [address] February, [facility] [place] [facility] [address] [id number] [place] [address] February, [facility] [place] [facility] [address] [id number] [place] [address] February, [facility] [place] [facility] [address] [id number] [place] [address] February, [facility] [place] [facility] [address] [id number] [place] [address] February, [facility] [place] [facility] [address] [id number] [place] [address] Jan, [facility] [place] [facility] [address] [id number] [place] [address] Jan, [facility] [place] [facility] [address] [id number] [place] [address] 17 Jan, 2012 [facility] [place] [facility] [address] [id number] [facility] [place] [address] 13 Jan, 2012 [facility] [place] [facility] [address] [id number] [facility] [place] [address] 10 Jan, 2012 [facility] [place] [facility] [address] [id number] [facility] [place] [address] 04 Jan, 2012 [facility] [place] [facility] [address] [id number] [facility] [place] [address] 30 Dec, 2011 [facility] [place] [facility] [address] [facility] [id number] [facility] [place] [address] 24 Dec, 2011 [facility] [place] [facility] [address] [id number] [place] [address] 20 Dec, 2011 [facility] [place] [facility] [address] [id number] [facility] [place] [address] 13 Dec, 2011 [facility] [address] [id number] [facility] [place] [place] [address] 06 Dec, 2011 [facility] [address] [id number] [facility] [place] [address] 28 Nov, 2011 [facility] [address] [id number] [facility] [place] [address] 27 Nov, 2011 [facility] [address] [id number] [place] [address] 25 Nov, 2011 [facility] [address] [id number] [place] [address] 14 Nov, 2011 [facility] [address] [id number] [facility] [place] [address] 10 Nov, 2011 [facility] [address] [id number] [place] [address] Nov, [facility] [address] [id number] [place] [address] Oct, [facility] [address] [id number] [place] [address] Oct, [facility] [address] [id number] [place] [address] Oct, [facility] [address] [id number] [place] [address] Oct, [facility] [address] [id number] [place] [address] Oct, [facility] [address] [id number] [place] [address] Sep, [facility] [address] [id number] [place] [address] Sep, [facility] [address] [id number] [place] [address] Sep, [facility] [address] [id number] [place] [address] 14 Sep, 2011 [facility] [address] [id number] [place] [address] 14 Sep, 2011 [facility] [address] [id number] [place] [address] Sep, [facility] [address] [id number] [place] [address] Sep, [facility] [address] [id number] [place] [address] Sep, [facility] [address] [id number] [place] [address] Sep, [facility] [address] [id number] [place] [address] Aug, [facility] [address] [id number] [place] [address] Aug, [facility] [address] [id number] [place] [address] Aug, [facility] [address] [id number] [place] [address] Aug, [facility] [address] [id number] [place] [address] Aug, [facility] [address] [id number] [place] [address] Aug, [facility] [address] [id number] [place] [address] Aug, [facility] [address] [id number] [place] [address] Aug, [facility] [address] [id number] [place] [address] Aug, [facility] [address] [id number] [place] [address] Aug, [facility] [address] [id number] [place] [address] Aug, [facility] [address] [id number] [place] [address] Aug, [facility] [address] [id number] [place] [address] Jul, [facility] [address] [id number] [place] [address] Jul, [facility] [address] [id number] [place] [address] 24 Jul, 2011 [facility] [address] [id number] [place] [address] Jul, [facility] [address] [id number] [place] [address] Jul, [facility] [address] [id number] [place] [address] Jul, [facility] [address] [id number] [place] [address] 18 Jul, 2011 [facility] [address] [id number] [place] [address] 11 Jul, 2011 [facility] [address] [id number] [place] [address] 10 Jul, 2011 [facility] [address] [id number] [place] [address] Jul, [facility] [address] [id number] [place] [address] Nov, [facility] [address] [id number] [place] [address] Aug, [facility] [address] [id number] [place] [address] Aug, [facility] [address] [id number] [place] [address] Aug, [facility] [address] [id number] [place] [address] Aug, [facility] [address] [id number] [place] [address] Jul, IMMUNIZATIONS No Known Immunizations SOCIAL HISTORY [...] Suicide attempt by hanging 2015 Hospitalization History [facility] 01/30/2018-02/10/20 08 Hospitalization History [facility] 05/04/18-
--- OUTSIDE RECORDS SUMMARY | 2020-04-04 01:48 | XMS REPORT ---
Author Author Kaila Onofre Doctor Organization [facility] Address Unknown Phone Unavailable Care Team Providers Care Program Management Specialist Name Role Phone Migration, Doctor Unavailable Unavailable PROBLEMS Type Condition ICD9-CM Code KDH01-VP Code Onset Dates Condition S tatus SNOMED Code Problem Paranoid schizophrenia F20.0 Active 93982682 Problem Borderline personality disorder F60.3 Active 01360269 Problem Schizoaffective disorder, depressive type F25.1 Active 51749030 Problem Schizoaffective disorder, unspecified F25.9 Active 89657825 Problem Attention deficit hyperactivity disorder (ADHD), inattentive type, 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 81578885 Problem Posttraumatic stress disorder F43.10 Active 20776982 Problem High risk medication use Z79.899 Activ e [id number] ALLERGIES No Information ENCOUNTERS Encounter Location Date Diagnosis [place] [address] [address] Nov, [place] [address] [address] Oct, Paranoid schizophrenia F20.0 ; Attention deficit hyperactivity disorder (ADHD), inattentive type, 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 ; Posttraumatic stress disorder F43.10 and Borderline personality disorder F60.3 [place] [address] [address] Oct, [place] [address] [address] Sep, Paranoid schizophrenia F20.0 ; Attention deficit hyperactivity disorder (ADHD), inattentive type, 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 ; Posttraumatic stress disorder F43.10 and Borderline personality disorder F60.3 [place] [address] [address] Aug, Paranoid schizophrenia F20.0 ; Attention deficit hyperactivity disorder (ADHD), inattentive type, 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 ; Posttraumatic stress disorder F43.10 and Borderline personality disorder F60.3 [facility] [address] [address] Aug, [facility] [address] [facility] [id number] [address] [place] [address] Aug, Acute bronchitis, unspecifie d organism J20.9 [facility] [address] [address] Aug, [facility] [address] [address] Aug, [facility] [address] [address] Jul, Paranoid schizophrenia F20.0 ; Attention deficit hyperactivity disorder (ADHD), inattentive type, 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 ; Posttraumatic stress disorder F43.10 and Borderline personality disorder F60.3 [facility] [address] [address] Jul, [facility] [address] [address] Jun, Paranoid schizophrenia F20.0 ; Other katherin g term (current) 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 Z79.899 ; Attention deficit hyperactivity disorder (ADHD), inattentive type, 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 ; Posttraumatic stress disorder F43.10 and Borderline personality disorder F60.3 [facility] [address] [address] Jun, Paranoid schizophrenia F20.0 ; Attention deficit hyperactivity disorder (ADHD), inattentive type, 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 ; Posttraumatic stress disorder F43.10 ; Borderline personality disorder F60.3 and Other fdc (current) drug therapy Z79.899 [facility] [address] [address] Apr, Paranoid schizophrenia F20.0 ; Posttraum atic stress disorder F43.10 ; Attention deficit hyperactivity disorder (ADHD), inattentive type, 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 and Borderline personality disorder F60.3 [facility] [address] [address] Apr, Paranoid schizophrenia F20.0 [facility] [address] [address] Apr, Paranoid schizophrenia F20.0 ; Posttraum atic stress disorder F43.10 ; Attention deficit hyperactivity disorder (ADHD), inattentive type, 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 and Borderline personality disorder F60.3 [facility] [address] [address] Mar, Paranoid schizophrenia F20.0 [facility] [address] [address] Mar, Paranoid schizophrenia F20.0 ; Posttraum atic stress disorder F43.10 ; Attention deficit hyperactivity disorder (ADHD), inattentive type, 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 and Borderline personality disorder F60.3 [place] [id number] [address] February, Paranoid schizophrenia F20.0 [facility] [address] [address] Jan, Paranoid schizophrenia F20.0 ; Posttraum atic stress disorder F43.10 ; Attention deficit hyperactivity disorder (ADHD), inattentive type, 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 and Borderline personality disorder F60.3 [facility] [address] [address] Dec, Paranoid schizophrenia F20.0 ; Posttraum atic stress disorder F43.10 ; Attention deficit hyperactivity disorder (ADHD), inattentive type, 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 and Borderline personality disorder F60.3 [facility] [address] [address] Dec, Paranoid schizophrenia F20.0 ; Posttraum atic stress disorder F43.10 ; Attention deficit hyperactivity disorder (ADHD), inattentive type, 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 and Borderline personality disorder F60.3 [facility] [address] [address] Oct, Paranoid schizophrenia F20.0 ; Posttraum atic stress disorder F43.10 ; Attention deficit hyperactivity disorder (ADHD), inattentive type, 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 and Borderline personality disorder F60.3 [facility] [address] [place] [id number] [place] [address] Oct, Paranoid schizophrenia F20.0 ; Posttraum atic stress disorder F43.10 ; Attention deficit hyperactivity disorder (ADHD), inattentive type, 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 and Borderline personality disorder F60.3 [facility] [address] [place] [id number] [place] [address] Aug, [facility] [address] [address] Aug, Paranoid schizophrenia F20.0 ; Posttraum atic stress disorder F43.10 ; Attention deficit hyperactivity disorder (ADHD), inattentive type, 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 and Borderline personality disorder F60.3 [facility] [address] [facility] [id number] [address] [address] Jul, Dry skin dermatitis L85.3 [facility] [address] [place] [id number] [place] [address] Jul, [facility] [address] [place] [id number] [place] [address] Jul, Paranoid schizophrenia F20.0 [facility] [address] [place] [id number] [place] [address] May, Paranoid schizophrenia F20.0 ; Posttraum atic stress disorder F43.10 ; Attention deficit hyperactivity disorder (ADHD), inattentive type, 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 and Borderline personality disorder F60.3 [facility] [address] [place] [id number] [place] [address] May, [facility] [address] [address] May, Paranoid schizophrenia F20.0 [facility] [address] [address] May, Paranoid schizophrenia F20.0 ; Posttraum atic stress disorder F43.10 ; Attention deficit hyperactivity disorder (ADHD), inattentive type, 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 and Borderline personality disorder F60.3 [facility] [address] [address] Apr, [facility] [address] [address] Apr, Paranoid schizophrenia F20.0 ; Posttraum atic stress disorder F43.10 ; Attention deficit hyperactivity disorder (ADHD), inattentive type, 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 and Borderline personality disorder F60.3 [facility] [address] [address] Apr, [facility] [address] [address] Apr, Schizoaffective disorder, depressive typ e F25.1 and Borderline personality disorder F60.3 [facility] [address] [address] Apr, Paranoid schizophrenia F20.0 ; Posttraum atic stress disorder F43.10 ; Attention deficit hyperactivity disorder (ADHD), inattentive type, 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 and Borderline personality disorder F60.3 [facility] [address] [address] Apr, [facility] [address] [address] Apr, Paranoid schizophrenia F20.0 ; Posttraum atic stress disorder F43.10 ; Attention deficit hyperactivity disorder (ADHD), inattentive type, 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 and Borderline personality disorder F60.3 [facility] [address] [address] Apr, [facility] [address] [address] Mar, Paranoid schizophrenia F20.0 [facility] [address] [place] [id number] Mar, [facility] [address] [address] Mar, Paranoid schizophrenia F20.0 ; Posttraum atic stress disorder F43.10 ; Attention deficit hyperactivity disorder (ADHD), inattentive type, 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 and Borderline personality disorder F60.3 [facility] [address] [address] February, Paranoid schizophrenia F20.0 [facility] [address] [address] February, Paranoid schizophrenia F20.0 ; Posttraum atic stress disorder F43.10 ; Attention deficit hyperactivity disorder (ADHD), inattentive type, 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 and Borderline personality disorder F60.3 [facility] [address] [address] February, Paranoid schizophrenia F20.0 ; Posttraum atic stress disorder F43.10 ; Attention deficit hyperactivity disorder (ADHD), inattentive type, 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 and Borderline personality disorder F60.3 [facility] [address] [address] February, [facility] [address] [address] February, Paranoid schizophrenia F20.0 [facility] [address] [address] February, Paranoid schizophrenia F20.0 [facility] [address] [address] February, Paranoid schizophrenia F20.0 ; Posttraum atic stress disorder F43.10 ; Attention deficit hyperactivity disorder (ADHD), inattentive type, 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 and Borderline personality disorder F60.3 [facility] [address] [address] Jan, Paranoid schizophrenia F20.0 ; Posttraum atic stress disorder F43.10 ; Attention deficit hyperactivity disorder (ADHD), inattentive type, 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 and Borderline personality disorder F60.3 [facility] [address] [address] Jan, Paranoid schizophrenia F20.0 [facility] [address] [address] Jan, Paranoid schizophrenia F20.0 [facility] [address] [address] Jan, Paranoid schizophrenia F20.0 ; Posttraum atic stress disorder F43.10 ; Attention deficit hyperactivity disorder (ADHD), inattentive type, 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 and Borderline personality disorder F60.3 [facility] [address] [address] Dec, [facility] [address] [address] Nov, Paranoid schizophrenia F20.0 ; Posttraum atic stress disorder F43.10 ; Attention deficit hyperactivity disorder (ADHD), inattentive type, 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 and Borderline personality disorder F60.3 [place] [id number] [address] Nov, [facility] [address] [address] Oct, Paranoid schizophrenia F20.0 [facility] [address] [address] Oct, Paranoid schizophrenia F20.0 ; Posttraum atic stress disorder F43.10 ; Attention deficit hyperactivity disorder (ADHD), inattentive type, 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 ; Borderline personality disorder F60.3 and Other health information technician (current) drug therapy Z79.899 [facility] [address] [address] Oct, [facility] [address] [address] Oct, [facility] [address] [address] Sep, [facility] [address] [place] [address] Sep, Paranoid schizophrenia F20.0 ; Posttraum atic stress disorder F43.10 ; Attention deficit hyperactivity disorder (ADHD), inattentive type, 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 and Borderline personality disorder F60.3 [facility] [address] [address] Sep, Paranoid schizophrenia F20.0 [facility] [address] [address] Aug, Paranoid schizophrenia F20.0 ; Posttraum atic stress disorder F43.10 ; Attention deficit hyperactivity disorder (ADHD), inattentive type, 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 and Borderline personality disorder F60.3 [facility] [address] [address] Aug, Paranoid schizophrenia F20.0 ; Posttraum atic stress disorder F43.10 ; Attention deficit hyperactivity disorder (ADHD), inattentive type, 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 and Borderline personality disorder F60.3 [facility] [address] [address] Aug, [facility] [address] [address] Jul, Paranoid schizophrenia F20.0 ; Posttraum atic stress disorder F43.10 ; Attention deficit hyperactivity disorder (ADHD), inattentive type, 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 and Borderline personality disorder F60.3 [facility] [address] [address] Jul, Paranoid schizophrenia F20.0 [facility] [address] [place] [id number] Jul, Paranoid schizophrenia F20.0 ; Posttraum atic stress disorder F43.10 ; Attention deficit hyperactivity disorder (ADHD), inattentive type, 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 and Borderline personality disorder F60.3 [facility] [address] [facility] [place] [address] Jun, Paranoid schizophrenia F20.0 ; Posttraum atic stress disorder F43.10 ; Attention deficit hyperactivity disorder (ADHD), inattentive type, 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 and Borderline personality disorder F60.3 [facility] [address] [place] [id number] [place] [address] May, Other fdc (current) drug therapy Z 79.899 [facility] [address] [address] May, [facility] [address] [address] May, [facility] [address] [address] May, Attention deficit hyperactivity disorder (ADHD), inattentive type, 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 [facility] [address] [place] [id number] [place] [address] May, [facility] [address] [place] [id number] [place] [address] May, Attention deficit hyperactivity disorder (ADHD), inattentive type, 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 [facility] [address] [place] [id number] [place] [address] May, Paranoid schizophrenia F20.0 ; Posttraum atic stress disorder F43.10 ; Attention deficit hyperactivity disorder (ADHD), inattentive type, 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 and Other fdc (current) drug therapy Z79.899 [facility] [address] [place] [id number] [place] [address] Apr, Paranoid schizophrenia F20.0 [facility] [address] [place] [address] [place] [address] Apr, Paranoid schizophrenia F20.0 ; Posttraum atic stress disorder F43.10 and Attention deficit hyperactivity disorder (ADHD), inattentive type, 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 [facility] [id number] [place] [address] February, [facility] [address] [place] [id number] February, Paranoid schizophrenia F20.0 ; Posttraum atic stress disorder F43.10 and Attention deficit hyperactivity disorder (ADHD), inattentive type, 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 [facility] [address] [address] February, Paranoid schizophrenia F20.0 ; Posttraum atic stress disorder F43.10 and Attention deficit hyperactivity disorder (ADHD), inattentive type, 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 [facility] [address] [place] [id number] Jan, Paranoid schizophrenia F20.0 ; Posttraum atic stress disorder F43.10 and Attention deficit hyperactivity disorder (ADHD), inattentive type, 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 [facility] [address] [id number] Dec, Dental examination Z01.20 [facility] [address] [id number] Nov, Dental examination Z01.20 [facility] [address] [id number] Nov, Dental examination Z01.20 [facility] [address] [id number] Nov, Dental caries K02.9 [facility] [address] [address] Nov, High risk medication use Z79.899 [facility] [address] [place] [id number] Nov, Paranoid schizophrenia F20.0 ; Posttraum atic stress disorder F43.10 ; Attention deficit hyperactivity disorder (ADHD), inattentive type, 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 and Borderline personality disorder in adult F60.3 [facility] [address] [id number] Oct, Dental caries K02.9 [facility] [address] [address] Sep, Paranoid schizophrenia F20.0 ; Posttraum atic stress disorder F43.10 and Attention deficit hyperactivity disorder (ADHD), inattentive type, 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0 ; Posttraum atic stress disorder F43.10 and Attention deficit hyperactivity disorder (ADHD), inattentive type, 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 [facility] [address] [address] Jul, [facility] [address] [address] Jun, Paranoid schizophrenia F20.0 ; Posttraum atic stress disorder F43.10 and Attention deficit hyperactivity disorder (ADHD), inattentive type, 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 [facility] [address] [facility] [place] [id number] Jun, Dental examination Z01.20 [facility] [address] [address] Jun, [facility] [address] [address] May, Paranoid schizophrenia F20.0 [facility] [address] [address] May, Paranoid schizophrenia F20.0 ; Posttraum atic stress disorder F43.10 and Attention deficit hyperactivity disorder (ADHD), inattentive type, 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 [facility] [address] [address] May, [facility] [address] [place] [id number] [place] [address] May, Paranoid schizophrenia F20.0 [facility] [address] [place] [id number] [place] [address] May, [facility] [address] [address] May, Paranoid schizophrenia F20.0 [facility] [address] [address] May, Schizoaffective disorder, unspecified F2 5.9 [facility] [address] [address] May, Schizoaffective disorder, unspecified F2 5.9 [facility] [address] [place] [id number] [place] [address] May, [facility] [address] [address] May, Paranoid schizophrenia F20.0 [facility] [address] [address] May, Paranoid schizophrenia F20.0 ; Posttraum atic stress disorder F43.10 and Attention deficit hyperactivity disorder (ADHD), inattentive type, 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 [facility] [address] [place] [id number] [place] [address] Mar, [facility] [address] [address] Mar, Paranoid schizophrenia F20.0 ; Posttraum atic stress disorder F43.10 and Attention deficit hyperactivity disorder (ADHD), inattentive type, 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 [facility] [address] [id number] [place] [address] Mar, Paranoid schizophrenia F20.0 [facility] [address] [address] Mar, Paranoid schizophrenia F20.0 ; Attention deficit hyperactivity disorder (ADHD), inattentive type, 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 and Posttraumatic stress disorder F43.10 [facility] [address] [address] Mar, [facility] [address] [address] Mar, Paranoid schizophrenia F20.0 ; Posttraum atic stress disorder F43.10 and Attention deficit hyperactivity disorder (ADHD), inattentive type, 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 [facility] [address] [address] February, [facility] [address] [address] February, [facility] [address] [address] February, [facility] [address] [address] February, [facility] [address] [address] Jan, Paranoid schizophrenia F20.0 [facility] [address] [id number] Jan, Dental examination Z01.20 [facility] [address] [id number] Jan, Dental caries K02.9 [facility] [address] [id number] Jan, Dental examination Z01.20 [facility] [address] [id number] Dec, Encounter for dental examination Z01.20 [facility] [address] [address] Dec, Paranoid schizophrenia F20.0 [facility] [address] [id number] [place] [id number] Dec, Dental examination Z01.20 [facility] [address] [id number] [place] [address] Dec, [facility] [address] [address] Dec, Paranoid schizophrenia F20.0 ; Posttraum atic stress disorder F43.10 and Attention deficit hyperactivity disorder (ADHD), inattentive type, 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 [facility] [address] [address] Nov, Schizoaffective disorder, unspecified F2 5.9 [facility] [address] [address] Oct, Paranoid schizophrenia F20.0 [facility] [address] [address] Oct, [facility] [address] [address] Sep, Paranoid schizophrenia F20.0 ; Posttraum atic stress disorder F43.10 and Attention deficit hyperactivity disorder (ADHD), inattentive type, 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 [facility] [address] [address] Sep, [facility] [address] [address] Sep, Paranoid schizophrenia F20.0 ; Posttraum atic stress disorder F43.10 and Attention deficit hyperactivity disorder (ADHD), inattentive type, 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 [facility] [address] [address] Aug, Paranoid schizophrenia F20.0 [facility] [address] [address] Aug, [facility] [address] [address] Aug, Posttraumatic stress disorder F43.10 ; P aranoid schizophrenia F20.0 and Attention deficit hyperactivity disorder (ADHD), inattentive type, 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 [place] [address] [address] Jul, Bipolar disorder, unspecified F31.9 [place] [address] [address] [address] Jul, [place] [address] [address] Jun, [place] [address] [address] Jun, Schizoaffective disorder, chronic 295.72 ; Posttraumatic stress disorder 309.81 and Attention deficit disorder of childhood without mention of hyperactivity 314.00 [place] [address] [address] May, [place] [address] [address] May, [facility] [address] [address] May, Schizoaffective disorder, chronic 295.72 ; Posttraumatic stress disorder 309.81 ; Attention deficit disorder of childhood without mention of hyperactivity 314.00 and Bipolar disorder, unspecified 296.80 [place] [address] [address] Apr, Schizoaffective disorder, chronic 295.72 [facility] [address] [address] Apr, [facility] [address] [address] Apr, Schizoaffective disorder, chronic 295.72 ; Posttraumatic stress disorder 309.81 and Attention deficit disorder of childhood without mention of hyperactivity 314.00 [facility] [address] [address] Mar, Disorganized schizophrenia, 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 [facility] [address] [id number] [place] [address] Mar, [facility] [address] [id number] [place] [address] Mar, [facility] [address] [id number] [place] [address] Mar, [facility] [address] [place] [id number] [place] [address] Mar, [facility] [address] [id number] [place] [address] February, Schizoaffective disorder, chronic 295.72 [facility] [address] [place] [id number] [place] [address] February, [facility] [address] [id number] [place] [address] February, Attention deficit disorder of childhood without mention of hyperactivity 314.00 ; Posttraumatic stress disorder 309.81 and Schizoaffective disorder, chronic 295.72 [facility] [address] [id number] [place] [address] 29 Jan, 2015 [facility] [address] [place] [id number] [place] [address] 14 Jan, 2015 [facility] [address] [place] [address] [id number] [place] [address] Jan, [facility] [address] [place] [id number] [place] [address] Dec, [facility] [address] [id number] [place] [address] Dec, [facility] [address] [id number] [place] [address] Dec, [facility] [address] [id number] [place] [address] Dec, [facility] [address] [id number] [place] [address] Dec, [facility] [address] [place] [address] [id number] [place] [address] Dec, [facility] [place] [facility] [address] [id number] [place] [address] Dec, [facility] [place] [facility] [address] [id number] [place] [address] Dec, [facility] [place] [facility] [address] [id number] [place] [address] Nov, [facility] [place] [facility] [address] [id number] [place] [address] Nov, [facility] [place] [facility] [address] [id number] [place] [address] Nov, [facility] [place] [facility] [address] [id number] [place] [address] Nov, [facility] [place] [facility] [address] [id number] [place] [address] Nov, [facility] [place] [facility] [address] [id number] [place] [address] Nov, [facility] [place] [facility] [address] [id number] [place] [address] Nov, [facility] [place] [facility] [address] [id number] [place] [address] Nov, [facility] [place] [facility] [address] [id number] [place] [address] Nov, [facility] [place] [facility] [address] [id number] [place] [address] Nov, [facility] [place] [facility] [address] [id number] [place] [address] Oct, [facility] [place] [facility] [address] [id number] [place] [address] Oct, [facility] [place] [facility] [address] [id number] [place] [address] Oct, [facility] [place] [facility] [address] [id number] [place] [address] 15 Oct, 2014 [facility] [place] [facility] [address] [id number] [place] [address] 15 Oct, 2014 [facility] [place] [facility] [address] [id number] [place] [address] Oct, [facility] [place] [facility] [address] [id number] [place] [address] Oct, [facility] [place] [facility] [address] [id number] [place] [id number] 17 Sep, 2014 [facility] [place] [facility] [address] [id number] [place] [address] 17 Sep, 2014 [facility] [place] [facility] [address] [id number] [place] [address] 15 Sep, 2014 [facility] [place] [facility] [address] [id number] [place] [address] 15 Sep, 2014 [facility] [place] [facility] [address] [id number] [place] [address] Aug, [facility] [place] [facility] [address] [id number] [place] [address] Aug, [facility] [place] [facility] [address] [id number] [place] [address] Aug, [facility] [place] [facility] [address] [id number] [place] [address] 14 Aug, 2014 [facility] [place] [facility] [address] [id number] [place] [address] 14 Aug, 2014 [facility] [place] [facility] [address] [id number] [place] [address] Aug, [facility] [place] [facility] [address] [id number] [place] [id number] 29 Jul, 2014 [facility] [place] [facility] [address] [id number] [place] [address] 29 Jul, 2014 [facility] [place] [facility] [address] [id number] [place] [address] 24 Jul, 2014 [facility] [place] [facility] [address] [id number] [place] [id number] 24 Jul, 2014 [facility] [place] [facility] [address] [facility] [id number] [place] [id number] 15 Jul, 2014 [facility] [place] [facility] [address] [id number] [place] [address] 15 Jul, 2014 [facility] [place] [facility] [address] [id number] [place] [address] 27 Jun, 2013 [facility] [place] [facility] [address] [id number] [place] [id number] 27 Jun, 2013 [facility] [place] [facility] [address] [facility] [id number] [place] [id number] 26 Jun, 2013 [facility] [place] [facility] [address] [id number] [place] [address] Jun, 2013 [facility] [place] [facility] [address] [id number] [place] [address] Jun, 2013 [facility] [place] [facility] [address] [id number] [place] [address] 26 Jun, 2013 [facility] [place] [facility] [address] [id number] [place] [address] 16 Jun, 2013 [facility] [place] [facility] [address] [id number] [place] [address] 16 Jun, 2013 [facility] [place] [facility] [address] [id number] [place] [address] 16 Jun, 2013 [facility] [place] [facility] [address] [id number] [place] [address] 16 Jun, 2013 [facility] [place] [facility] [address] [id number] [place] [address] Jun, [facility] [place] [facility] [address] [id number] [place] [address] May, [facility] [place] [facility] [address] [id number] [place] [address] May, [facility] [place] [facility] [address] [id number] [place] [address] May, [facility] [place] [facility] [address] [id number] [place] [address] May, [facility] [place] [facility] [address] [facility] [id number] [place] [address] May, [facility] [place] [facility] [address] [facility] [id number] [place] [address] May, [facility] [place] [facility] [address] [facility] [id number] [place] [address] May, [facility] [place] [facility] [address] [facility] [id number] [place] [address] May, [facility] [place] [facility] [address] [id number] [place] [address] May, [facility] [place] [facility] [address] [id number] [place] [address] May, [facility] [place] [facility] [address] [id number] [place] [address] Apr, [facility] [place] [facility] [address] [facility] [id number] [place] [address] Apr, [facility] [place] [facility] [address] [id number] [place] [address] Apr, [facility] [place] [facility] [address] [id number] [place] [address] Apr, [facility] [place] [facility] [address] [id number] [place] [address] Apr, [facility] [place] [facility] [address] [id number] [place] [address] Apr, [facility] [place] [facility] [address] [facility] [id number] [place] [address] Apr, [facility] [place] [facility] [address] [id number] [place] [id number] Apr, [facility] [place] [facility] [address] [id number] [place] [address] Apr, [facility] [place] [facility] [address] [id number] [place] [address] Apr, [facility] [place] [facility] [address] [facility] [id number] [place] [address] Mar, [facility] [place] [facility] [address] [facility] [id number] [facility] [place] [address] Mar, [facility] [place] [facility] [address] [id number] [place] [address] Mar, [facility] [place] [facility] [address] [facility] [id number] [facility] [place] [address] Mar, [facility] [place] [facility] [address] [facility] [id number] [place] [address] Mar, [facility] [place] [facility] [address] [id number] [place] [address] Mar, [facility] [place] [facility] [address] [id number] [place] [address] Mar, [facility] [place] [facility] [address] [id number] [place] [address] Mar, [facility] [place] [facility] [address] [id number] [place] [address] 16 Mar, 2014 [facility] [place] [facility] [address] [id number] [place] [address] Mar, [facility] [place] [facility] [address] [id number] [place] [address] Mar, [facility] [place] [facility] [address] [id number] [place] [address] Mar, [facility] [place] [facility] [address] [facility] [id number] [place] [address] Mar, [facility] [place] [facility] [address] [id number] [place] [id number] 10 Mar, 2014 [facility] [place] [facility] [address] [id number] [place] [address] 09 Mar, 2014 [facility] [place] [facility] [address] [id number] [place] [address] Mar, [facility] [place] [facility] [address] [id number] [place] [address] Mar, [facility] [place] [facility] [address] [facility] [id number] [place] [address] Mar, [facility] [place] [facility] [address] [facility] [id number] [place] [address] Mar, [facility] [place] [facility] [address] [id number] [place] [address] Mar, [facility] [place] [facility] [address] [id number] [place] [address] February, [facility] [place] [facility] [address] [facility] [id number] [place] [address] February, [facility] [place] [facility] [address] [id number] [place] [address] February, [facility] [place] [facility] [address] [id number] [place] [address] February, [facility] [place] [facility] [address] [id number] [place] [address] February, [facility] [place] [facility] [address] [id number] [place] [address] February, [facility] [place] [facility] [address] [id number] [place] [address] February, [facility] [place] [facility] [address] [id number] [place] [address] February, [facility] [place] [facility] [address] [id number] [place] [address] February, [facility] [place] [facility] [address] [facility] [id number] [place] [address] February, [facility] [place] [facility] [address] [id number] [place] [address] February, [facility] [place] [facility] [address] [id number] [place] [address] February, [facility] [place] [facility] [address] [id number] [place] [address] February, [facility] [place] [facility] [address] [id number] [place] [address] February, [facility] [place] [facility] [address] [id number] [place] [address] February, [facility] [place] [facility] [address] [id number] [place] [address] February, [facility] [place] [facility] [address] [id number] [place] [address] February, [facility] [place] [facility] [address] [id number] [place] [address] February, [facility] [place] [facility] [address] [id number] [place] [address] February, [facility] [place] [facility] [address] [id number] [place] [address] February, [facility] [place] [facility] [address] [id number] [place] [address] February, [facility] [place] [facility] [address] [id number] [place] [address] Jan, [facility] [place] [facility] [address] [id number] [place] [address] Jan, [facility] [place] [facility] [address] [id number] [place] [address] Jan, [facility] [place] [facility] [address] [id number] [place] [address] Jan, [facility] [place] [facility] [address] [id number] [place] [address] Jan, [facility] [place] [facility] [address] [id number] [place] [address] Jan, [facility] [place] [facility] [address] [id number] [place] [address] Jan, [facility] [place] [facility] [address] [id number] [place] [address] Jan, [facility] [place] [facility] [address] [id number] [place] [id number] 21 Dec, 2013 [facility] [place] [facility] [address] [facility] [id number] [facility] [address] 20 Dec, 2013 [facility] [place] [facility] [address] [facility] [id number] [facility] [place] [address] 20 Dec, 2013 [facility] [place] [facility] [address] [id number] [facility] [place] [address] 19 Dec, 2013 [facility] [place] [facility] [address] [id number] [facility] [place] [address] 19 Dec, 2013 [facility] [place] [facility] [address] [facility] [id number] [facility] [place] [address] 15 Dec, 2013 [facility] [place] [facility] [address] [id number] [place] [address] 15 Dec, 2013 [facility] [place] [facility] [address] [id number] [place] [address] 11 Dec, 2013 [facility] [place] [facility] [address] [id number] [facility] [place] [address] 10 Dec, 2013 [facility] [place] [facility] [address] [id number] [facility] [place] [address] 10 Dec, 2013 [facility] [place] [facility] [address] [id number] [facility] [place] [address] 18 Nov, 2013 [facility] [place] [facility] [address] [id number] [place] [address] 17 Nov, 2013 [facility] [place] [facility] [address] [id number] [place] [address] Nov, [facility] [place] [facility] [address] [id number] [facility] [place] [place] [address] Nov, [facility] [place] [facility] [address] [id number] [place] [address] Nov, [facility] [place] [facility] [address] [id number] [place] [address] Oct, [facility] [place] [facility] [address] [id number] [place] [address] Oct, [facility] [place] [facility] [address] [id number] [place] [address] Oct, [facility] [place] [facility] [address] [id number] [place] [address] Sep, [facility] [place] [facility] [address] [id number] [place] [address] Sep, 2012 [facility] [place] [facility] [address] [id number] [place] [address] Sep, 2012 [facility] [place] [facility] [address] [id number] [place] [address] Sep, [facility] [place] [facility] [address] [id number] [place] [address] Aug, [facility] [place] [facility] [address] [id number] [place] [address] Aug, [facility] [place] [facility] [id number] [place] [address] Jul, [facility] [place] [facility] [address] [id number] [place] [address] Jul, [facility] [place] [facility] [address] [id number] [place] [address] Jul, [facility] [place] [facility] [address] [id number] [place] [address] Jul, [facility] [place] [facility] [address] [id number] [place] [address] Jul, [facility] [place] [facility] [address] [id number] [place] [address] 25 Jun, 2012 [facility] [place] [facility] [address] [id number] [place] [address] 25 Sep, 2012 [facility] [place] [facility] [id number] [place] [address] 19 Sep, 2012 [facility] [place] [facility] [address] [id number] [place] [address] 18 Sep, 2012 [facility] [place] [facility] [address] [id number] [place] [id number] 16 Sep, 2013 [facility] [place] [facility] [address] [id number] [facility] [place] [address] 12 Jun, 2013 [facility] [place] [facility] [address] [facility] [id number] [facility] [address] 11 Jun, 2013 [facility] [place] [facility] [address] [id number] [facility] [address] 30 May, 2013 [facility] [place] [facility] [address] [id number] [place] [address] May, [facility] [place] [facility] [address] [facility] [id number] [place] [address] Apr, [facility] [place] [facility] [address] [id number] [facility] [place] [address] Apr, [facility] [place] [facility] [address] [id number] [place] [address] Apr, [facility] [place] [facility] [address] [id number] [place] [id number] Mar, [facility] [place] [facility] [address] [id number] [facility] [place] [address] Mar, [facility] [place] [facility] [address] [id number] [facility] [place] [address] February, [facility] [place] [facility] [address] [id number] [place] [address] February, [facility] [place] [facility] [address] [id number] [place] [id number] February, [facility] [place] [facility] [address] [id number] [facility] [place] [address] February, [facility] [place] [facility] [address] [id number] [place] [address] Jan, [facility] [place] [facility] [address] [id number] [place] [id number] 17 Jan, 2013 [facility] [place] [facility] [address] [id number] [place] [address] 16 Jan, 2013 [facility] [place] [facility] [address] [id number] [place] [id number] 29 Dec, 2012 [facility] [place] [facility] [address] [id number] [place] [id number] Dec, [facility] [place] [facility] [address] [id number] [place] [id number] Dec, [facility] [place] [facility] [address] [id number] [place] [id number] Dec, [facility] [place] [facility] [address] [id number] [place] [id number] Nov, [facility] [place] [facility] [address] [id number] [place] [address] Nov, [facility] [place] [facility] [address] [id number] [place] [address] Oct, [facility] [place] [facility] [address] [id number] [place] [id number] Oct, [facility] [place] [facility] [address] [id number] [place] [id number] Oct, [facility] [place] [facility] [address] [id number] [place] [id number] Oct, [facility] [place] [facility] [address] [id number] [place] [address] Aug, [facility] [place] [facility] [address] [id number] [place] [address] Aug, [facility] [place] [facility] [address] [id number] [place] [address] Jun, [facility] [place] [facility] [address] [id number] [place] [id number] May, [facility] [place] [facility] [address] [id number] [place] [address] May, [facility] [place] [facility] [address] [id number] [place] [id number] Apr, [facility] [place] [facility] [address] [id number] [place] [id number] Apr, [facility] [place] [facility] [address] [id number] [place] [id number] 05 Apr, 2012 [facility] [place] [facility] [address] [id number] [place] [address] Mar, [facility] [place] [facility] [address] [id number] [place] [id number] Mar, [facility] [place] [facility] [address] [id number] [place] [id number] 13 Mar, 2012 [facility] [place] [facility] [address] [id number] [place] [id number] Mar, [facility] [place] [facility] [address] [id number] [place] [id number] Mar, [facility] [place] [facility] [address] [id number] [place] [id number] February, [facility] [place] [facility] [address] [id number] [place] [address] February, [facility] [place] [facility] [address] [id number] [place] [id number] February, [facility] [place] [facility] [address] [id number] [place] [id number] February, [facility] [place] [facility] [address] [id number] [place] [address] February, [facility] [place] [facility] [address] [id number] [place] [address] February, [facility] [place] [facility] [address] [id number] [place] [id number] February, [facility] [place] [facility] [address] [id number] [place] [address] Jan, [facility] [place] [facility] [address] [id number] [place] [id number] 18 Jan, 2012 [facility] [place] [facility] [address] [id number] [place] [id number] 17 Jan, 2012 [facility] [place] [facility] [address] [id number] [place] [id number] 13 Jan, 2012 [facility] [place] [facility] [address] [id number] [facility] [place] [address] 10 Jan, 2012 [facility] [place] [facility] [address] [id number] [facility] [id number] 04 Jan, 2012 [facility] [place] [facility] [address] [id number] [facility] [place] [address] 30 Dec, 2011 [facility] [address] [id number] [facility] [address] 24 Dec, 2011 [facility] [address] [facility] [id number] [facility] [address] 20 Dec, 2011 [facility] [address] [id number] [facility] [id number] 13 Dec, 2011 [facility] [address] [id number] [facility] [id number] Dec, [facility] [address] [id number] [facility] [id number] 28 Nov, 2011 [facility] [address] [id number] [facility] [id number] Nov, [facility] [address] [id number] [facility] [id number] 25 Nov, 2011 [facility] [address] [id number] [place] [id number] 14 Nov, 2011 [facility] [address] [id number] [facility] [address] Nov, [facility] [address] [id number] [facility] [address] Nov, [facility] [address] [id number] [place] [id number] Oct, [facility] [address] [id number] [facility] [id number] Oct, [facility] [address] [id number] [place] [address] Oct, [facility] [address] [id number] [place] [address] Oct, [facility] [address] [id number] [place] [address] Oct, [facility] [address] [id number] [place] [address] Sep, [facility] [address] [id number] [place] [address] Sep, [facility] [address] [id number] [place] [id number] 20 Sep, 2011 [facility] [address] [id number] [place] [address] 14 Sep, 2011 [facility] [address] [id number] [place] [id number] 14 Sep, 2011 [facility] [address] [id number] [place] [id number] Sep, [facility] [address] [id number] [place] [id number] Sep, [facility] [address] [id number] [place] [id number] Sep, [facility] [address] [id number] [place] [id number] Sep, [facility] [address] [id number] [place] [address] Aug, [facility] [address] [id number] [place] [address] Aug, [facility] [address] [id number] [place] [id number] Aug, [facility] [id number] [place] [id number] Aug, [facility] [address] [id number] [place] [id number] Aug, [facility] [address] [id number] [place] [id number] Aug, [facility] [address] [id number] [place] [address] Aug, [facility] [address] [id number] [place] [id number] 16 Aug, 2011 [facility] [address] [id number] [place] [id number] Aug, [facility] [address] [id number] [place] [id number] Aug, [facility] [address] [facility] [id number] [place] [id number] Aug, [facility] [address] [id number] [place] [address] Aug, [facility] [address] [id number] [place] [id number] Jul, [facility] [address] [id number] [place] [id number] Jul, [facility] [address] [id number] [place] [id number] 24 Jul, 2011 [facility] [address] [id number] [place] [id number] Jul, [facility] [address] [id number] [place] [id number] Jul, [facility] [address] [id number] [place] [address] Jul, [facility] [address] [id number] [place] [id number] 18 Jul, 2011 [facility] [address] [id number] [place] [id number] 11 Jul, 2011 [facility] [address] [id number] [place] [id number] 10 Jul, 2011 [facility] [address] [id number] [place] [id number] 10 Jul, 2011 [facility] [address] [id number] [place] [address] Nov, [facility] [address] [id number] [place] [address] Aug, [facility] [address] [id number] [place] [address] Aug, [facility] [address] [id number] [place] [address] Aug, [facility] [address] [id number] [place] [address] Aug, [facility] [address] [id number] [place] [address] Jul, IMMUNIZATIONS No Known Immunizations SOCIAL HISTORY [...] Suicide attempt by hanging 2015 Hospitalization History [facility] 01/30/2018-02/10/20 08 Hospitalization History [facility] 05/04/18-
--- OUTSIDE RECORDS SUMMARY | 2020-04-04 01:49 | XMS REPORT ---
Author Author Kaila Onofre Doctor Organization [facility] Address Unknown Phone Unavailable Care Team Providers Care [employer]er Name Role Phone Migration, Doctor Unavailable Unavailable PROBLEMS Type Condition ICD9-CM Code [id number] Code Onset Dates Condition S tatus SNOMED Code Problem Paranoid schizophrenia F20.0 Active 93205342 Problem Borderline personality disorder F60.3 Active 71586814 Problem Schizoaffective disorder, depressive type F25.1 Active 25608511 Problem Schizoaffective disorder, unspecified F25.9 Active 62182320 Problem Attention deficit hyperactivity disorder (ADHD), inattentive type, 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 81655331 Problem Posttraumatic stress disorder F43.10 Active 99987659 Problem High risk medication use Z79.899 Activ e [id number] ALLERGIES No Information ENCOUNTERS Encounter Location Date Diagnosis [place] [address] [address] Nov, [place] [address] [address] Oct, Paranoid schizophrenia F20.0 ; Attention deficit hyperactivity disorder (ADHD), inattentive type, 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 ; Posttraumatic stress disorder F43.10 and Borderline personality disorder F60.3 [place] [address] [address] Oct, [place] [address] [address] Sep, Paranoid schizophrenia F20.0 ; Attention deficit hyperactivity disorder (ADHD), inattentive type, 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 ; Posttraumatic stress disorder F43.10 and Borderline personality disorder F60.3 [place] [address] [address] Aug, Paranoid schizophrenia F20.0 ; Attention deficit hyperactivity disorder (ADHD), inattentive type, 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 ; Posttraumatic stress disorder F43.10 and Borderline personality disorder F60.3 [facility], [place] [address] [address] Aug, [facility] [address] [facility] [id number] [address] [place] [address] Aug, Acute bronchitis, unspecifie d organism J20.9 [facility], [place] [address] [address] Aug, [facility] [place] [address] [address] Aug, [facility] [place] [address] [address] Jul, Paranoid schizophrenia F20.0 ; Attention deficit hyperactivity disorder (ADHD), inattentive type, 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 ; Posttraumatic stress disorder F43.10 and Borderline personality disorder F60.3 [facility], [place] [address] [address] Jul, [facility], [place] [address] [address] Jun, Paranoid schizophrenia F20.0 ; Other katherin g term (current) 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 Z79.899 ; Attention deficit hyperactivity disorder (ADHD), inattentive type, 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 ; Posttraumatic stress disorder F43.10 and Borderline personality disorder F60.3 [facility], [place] [address] [address] Jun, Paranoid schizophrenia F20.0 ; Attention deficit hyperactivity disorder (ADHD), inattentive type, 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 ; Posttraumatic stress disorder F43.10 ; Borderline personality disorder F60.3 and Other jail (current) drug therapy Z79.899 [facility], [place] [address] [address] Apr, Paranoid schizophrenia F20.0 ; Posttraum atic stress disorder F43.10 ; Attention deficit hyperactivity disorder (ADHD), inattentive type, 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 and Borderline personality disorder F60.3 [facility], [place] [address] [address] Apr, Paranoid schizophrenia F20.0 [facility], [place] [address] [address] Apr, Paranoid schizophrenia F20.0 ; Posttraum atic stress disorder F43.10 ; Attention deficit hyperactivity disorder (ADHD), inattentive type, 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 and Borderline personality disorder F60.3 [facility], [place] [address] [address] Mar, Paranoid schizophrenia F20.0 [facility], [place] [address] [address] Mar, Paranoid schizophrenia F20.0 ; Posttraum atic stress disorder F43.10 ; Attention deficit hyperactivity disorder (ADHD), inattentive type, 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 and Borderline personality disorder F60.3 [place] [id number] [address] February, Paranoid schizophrenia F20.0 [facility], [place] [address] [address] Jan, Paranoid schizophrenia F20.0 ; Posttraum atic stress disorder F43.10 ; Attention deficit hyperactivity disorder (ADHD), inattentive type, 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 and Borderline personality disorder F60.3 [facility], [place] [address] [address] Dec, Paranoid schizophrenia F20.0 ; Posttraum atic stress disorder F43.10 ; Attention deficit hyperactivity disorder (ADHD), inattentive type, 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 and Borderline personality disorder F60.3 [facility], [place] [address] [address] Dec, Paranoid schizophrenia F20.0 ; Posttraum atic stress disorder F43.10 ; Attention deficit hyperactivity disorder (ADHD), inattentive type, 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 and Borderline personality disorder F60.3 [facility], [place] [address] [address] Oct, Paranoid schizophrenia F20.0 ; Posttraum atic stress disorder F43.10 ; Attention deficit hyperactivity disorder (ADHD), inattentive type, 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 and Borderline personality disorder F60.3 [facility], [place] [address] [place] [id number] [place] [address] Oct, Paranoid schizophrenia F20.0 ; Posttraum atic stress disorder F43.10 ; Attention deficit hyperactivity disorder (ADHD), inattentive type, 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 and Borderline personality disorder F60.3 [facility], [place] [address] [place] [id number] [place] [address] Aug, [facility], [place] [address] [address] Aug, Paranoid schizophrenia F20.0 ; Posttraum atic stress disorder F43.10 ; Attention deficit hyperactivity disorder (ADHD), inattentive type, 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 and Borderline personality disorder F60.3 [facility] [address] [facility] [id number] [address] [address] Jul, Dry skin dermatitis L85.3 [facility], [place] [address] [place] [id number] [place] [address] Jul, [facility], [place] [address] [place] [id number] [place] [address] Jul, Paranoid schizophrenia F20.0 [facility], [place] [address] [place] [id number] [place] [address] May, Paranoid schizophrenia F20.0 ; Posttraum atic stress disorder F43.10 ; Attention deficit hyperactivity disorder (ADHD), inattentive type, 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 and Borderline personality disorder F60.3 [facility], [place] [address] [place] [id number] [place] [address] May, [facility], [place] [address] [address] May, Paranoid schizophrenia F20.0 [facility], [place] [address] [address] May, Paranoid schizophrenia F20.0 ; Posttraum atic stress disorder F43.10 ; Attention deficit hyperactivity disorder (ADHD), inattentive type, 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 and Borderline personality disorder F60.3 [facility], [place] [address] [address] Apr, [facility], [place] [address] [address] Apr, Paranoid schizophrenia F20.0 ; Posttraum atic stress disorder F43.10 ; Attention deficit hyperactivity disorder (ADHD), inattentive type, 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 and Borderline personality disorder F60.3 [facility], [place] [address] [address] Apr, [facility], [place] [address] [address] Apr, Schizoaffective disorder, depressive typ e F25.1 and Borderline personality disorder F60.3 [facility], [place] [address] [address] Apr, Paranoid schizophrenia F20.0 ; Posttraum atic stress disorder F43.10 ; Attention deficit hyperactivity disorder (ADHD), inattentive type, 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 and Borderline personality disorder F60.3 [facility], [place] [address] [address] Apr, [facility], [place] [address] [address] Apr, Paranoid schizophrenia F20.0 ; Posttraum atic stress disorder F43.10 ; Attention deficit hyperactivity disorder (ADHD), inattentive type, 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 and Borderline personality disorder F60.3 [facility], [place] [address] [address] Apr, [facility], [place] [address] [address] Mar, Paranoid schizophrenia F20.0 [facility], [place] [address] [place] [id number] Mar, [facility], [place] [address] [address] Mar, Paranoid schizophrenia F20.0 ; Posttraum atic stress disorder F43.10 ; Attention deficit hyperactivity disorder (ADHD), inattentive type, 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 and Borderline personality disorder F60.3 [facility], [place] [address] [address] February, Paranoid schizophrenia F20.0 [facility], [place] [address] [address] February, Paranoid schizophrenia F20.0 ; Posttraum atic stress disorder F43.10 ; Attention deficit hyperactivity disorder (ADHD), inattentive type, 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 and Borderline personality disorder F60.3 [facility], [place] [address] [address] February, Paranoid schizophrenia F20.0 ; Posttraum atic stress disorder F43.10 ; Attention deficit hyperactivity disorder (ADHD), inattentive type, 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 and Borderline personality disorder F60.3 [facility], [place] [address] [address] February, [facility], [place] [address] [address] February, Paranoid schizophrenia F20.0 [facility], [place] [address] [address] February, Paranoid schizophrenia F20.0 [facility], [place] [address] [address] February, Paranoid schizophrenia F20.0 ; Posttraum atic stress disorder F43.10 ; Attention deficit hyperactivity disorder (ADHD), inattentive type, 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 and Borderline personality disorder F60.3 [facility], [place] [address] [address] Jan, Paranoid schizophrenia F20.0 ; Posttraum atic stress disorder F43.10 ; Attention deficit hyperactivity disorder (ADHD), inattentive type, 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 and Borderline personality disorder F60.3 [facility], [place] [address] [address] Jan, Paranoid schizophrenia F20.0 [facility], [place] [address] [address] Jan, Paranoid schizophrenia F20.0 [facility], [place] [address] [address] Jan, Paranoid schizophrenia F20.0 ; Posttraum atic stress disorder F43.10 ; Attention deficit hyperactivity disorder (ADHD), inattentive type, 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 and Borderline personality disorder F60.3 [facility], [place] [address] [address] Dec, [facility], [place] [address] [address] Nov, Paranoid schizophrenia F20.0 ; Posttraum atic stress disorder F43.10 ; Attention deficit hyperactivity disorder (ADHD), inattentive type, 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 and Borderline personality disorder F60.3 [place] [id number] [address] Nov, [facility], [place] [address] [address] Oct, Paranoid schizophrenia F20.0 [facility], [place] [address] [address] Oct, Paranoid schizophrenia F20.0 ; Posttraum atic stress disorder F43.10 ; Attention deficit hyperactivity disorder (ADHD), inattentive type, 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 ; Borderline personality disorder F60.3 and Other meterman (current) drug therapy Z79.899 [facility], [place] [address] [address] Oct, [facility], [place] [address] [address] Oct, [facility], [place] [address] [address] Sep, [facility], [place] [address] [place] [address] Sep, Paranoid schizophrenia F20.0 ; Posttraum atic stress disorder F43.10 ; Attention deficit hyperactivity disorder (ADHD), inattentive type, 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 and Borderline personality disorder F60.3 [facility], [place] [address] [address] Sep, Paranoid schizophrenia F20.0 [facility], [place] [address] [address] Aug, Paranoid schizophrenia F20.0 ; Posttraum atic stress disorder F43.10 ; Attention deficit hyperactivity disorder (ADHD), inattentive type, 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 and Borderline personality disorder F60.3 [facility], [place] [address] [address] Aug, Paranoid schizophrenia F20.0 ; Posttraum atic stress disorder F43.10 ; Attention deficit hyperactivity disorder (ADHD), inattentive type, 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 and Borderline personality disorder F60.3 [facility], [place] [address] [address] Aug, [facility], [place] [address] [address] Jul, Paranoid schizophrenia F20.0 ; Posttraum atic stress disorder F43.10 ; Attention deficit hyperactivity disorder (ADHD), inattentive type, 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 and Borderline personality disorder F60.3 [facility], [place] [address] [address] Jul, Paranoid schizophrenia F20.0 [facility], [place] [address] [place] [id number] Jul, Paranoid schizophrenia F20.0 ; Posttraum atic stress disorder F43.10 ; Attention deficit hyperactivity disorder (ADHD), inattentive type, 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 and Borderline personality disorder F60.3 [facility], [place] [address] [id number] [place] [address] Jun, Paranoid schizophrenia F20.0 ; Posttraum atic stress disorder F43.10 ; Attention deficit hyperactivity disorder (ADHD), inattentive type, 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 and Borderline personality disorder F60.3 [facility], [place] [address] [place] [id number] [place] [address] May, Other jail (current) drug therapy Z 79.899 [facility], [place] [address] [address] May, [facility], [place] [address] [address] May, [facility], [place] [address] [address] May, Attention deficit hyperactivity disorder (ADHD), inattentive type, 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 [facility], [place] [address] [place] [id number] [place] [address] May, [facility], [place] [address] [place] [id number] [place] [address] May, Attention deficit hyperactivity disorder (ADHD), inattentive type, 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 [facility], [place] [address] [place] [id number] [place] [address] May, Paranoid schizophrenia F20.0 ; Posttraum atic stress disorder F43.10 ; Attention deficit hyperactivity disorder (ADHD), inattentive type, 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 and Other jail (current) drug therapy Z79.899 [facility], [place] [address] [place] [id number] [place] [address] Apr, Paranoid schizophrenia F20.0 [facility], [place] [address] [place] [id number] [place] [address] Apr, Paranoid schizophrenia F20.0 ; Posttraum atic stress disorder F43.10 and Attention deficit hyperactivity disorder (ADHD), inattentive type, 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 [facility], [place] [id number] [place] [address] February, [facility], [place] [address] [place] [id number] February, Paranoid schizophrenia F20.0 ; Posttraum atic stress disorder F43.10 and Attention deficit hyperactivity disorder (ADHD), inattentive type, 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 [facility], [place] [address] [address] February, Paranoid schizophrenia F20.0 ; Posttraum atic stress disorder F43.10 and Attention deficit hyperactivity disorder (ADHD), inattentive type, 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 [facility], [place] [address] [place] [id number] Jan, Paranoid schizophrenia F20.0 ; Posttraum atic stress disorder F43.10 and Attention deficit hyperactivity disorder (ADHD), inattentive type, 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 [facility] [address] [id number] Dec, Dental examination Z01.20 [facility] [address] [id number] Nov, Dental examination Z01.20 [facility] [address] [id number] Nov, Dental examination Z01.20 [facility] [address] [id number] Nov, Dental caries K02.9 [facility], [place] [address] [address] Nov, High risk medication use Z79.899 [facility], [place] [address] [place] [id number] Nov, Paranoid schizophrenia F20.0 ; Posttraum atic stress disorder F43.10 ; Attention deficit hyperactivity disorder (ADHD), inattentive type, 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 and Borderline personality disorder in adult F60.3 [facility] [address] [id number] Oct, Dental caries K02.9 [facility], [place] [address] [address] Sep, Paranoid schizophrenia F20.0 ; Posttraum atic stress disorder F43.10 and Attention deficit hyperactivity disorder (ADHD), inattentive type, 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 [facility], [place] [address] [address] 16 Aug, 2016 Paranoid schizophrenia F20.0 ; Posttraum atic stress disorder F43.10 and Attention deficit hyperactivity disorder (ADHD), inattentive type, 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 [facility] [address] [facility] [id number] [address] [place] [address] Aug, Strep throat J02.0 and Cough R05 [facility], [place] [address] [address] Aug, [facility], [place] [address] [address] Jul, Paranoid schizophrenia F20.0 ; Posttraum atic stress disorder F43.10 and Attention deficit hyperactivity disorder (ADHD), inattentive type, 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 [facility], [place] [address] [address] Jul, [facility], [place] [address] [address] Jun, Paranoid schizophrenia F20.0 ; Posttraum atic stress disorder F43.10 and Attention deficit hyperactivity disorder (ADHD), inattentive type, 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 [facility] [address] [facility] [place] [id number] Jun, Dental examination Z01.20 [facility], [place] [address] [address] Jun, [facility], [place] [address] [address] May, Paranoid schizophrenia F20.0 [facility], [place] [address] [address] May, Paranoid schizophrenia F20.0 ; Posttraum atic stress disorder F43.10 and Attention deficit hyperactivity disorder (ADHD), inattentive type, 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 [facility], [place] [address] [address] May, [facility], [place] [address] [place] [id number] [place] [address] May, Paranoid schizophrenia F20.0 [facility], [place] [address] [place] [id number] [place] [address] May, [facility], [place] [address] [address] May, Paranoid schizophrenia F20.0 [facility], [place] [address] [address] May, Schizoaffective disorder, unspecified F2 5.9 [facility], [place] [address] [address] May, Schizoaffective disorder, unspecified F2 5.9 [facility], [place] [address] [place] [id number] [place] [address] May, [facility], [place] [address] [address] May, Paranoid schizophrenia F20.0 [facility], [place] [address] [address] May, Paranoid schizophrenia F20.0 ; Posttraum atic stress disorder F43.10 and Attention deficit hyperactivity disorder (ADHD), inattentive type, 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 [facility], [place] [address] [place] [id number] [place] [address] Mar, [facility], [place] [address] [address] Mar, Paranoid schizophrenia F20.0 ; Posttraum atic stress disorder F43.10 and Attention deficit hyperactivity disorder (ADHD), inattentive type, 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10 and Attention deficit hyperactivity disorder (ADHD), inattentive type, 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 [facility], [place] [address] [address] February, [facility], [place] [address] [address] February, [facility], [place] [address] [address] February, [facility] [place] [address] [address] February, [facility] [place] [address] [address] Jan, Paranoid schizophrenia F20.0 [facility] [address] [id number] Jan, Dental examination Z01.20 [facility] [address] [id number] Jan, Dental caries K02.9 [facility] [address] [id number] Jan, Dental examination Z01.20 [facility] [address] [id number] Dec, Encounter for dental examination Z01.20 [facility] [place] [address] [address] Dec, Paranoid schizophrenia F20.0 [facility] [address] [facility] [place] [id number] Dec, Dental examination Z01.20 [facility] [place] [address] [id number] [place] [address] Dec, [facility] [place] [address] [address] Dec, Paranoid schizophrenia F20.0 ; Posttraum atic stress disorder F43.10 and Attention deficit hyperactivity disorder (ADHD), inattentive type, 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 [facility] [place] [address] [address] Nov, Schizoaffective disorder, unspecified F2 5.9 [facility] [place] [address] [address] Oct, Paranoid schizophrenia F20.0 [facility] [place] [address] [address] Oct, [facility] [place] [address] [address] Sep, Paranoid schizophrenia F20.0 ; Posttraum atic stress disorder F43.10 and Attention deficit hyperactivity disorder (ADHD), inattentive type, 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 [facility] [place] [address] [address] Sep, [facility] [place] [address] [address] Sep, Paranoid schizophrenia F20.0 ; Posttraum atic stress disorder F43.10 and Attention deficit hyperactivity disorder (ADHD), inattentive type, 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 [facility] [place] [address] [address] Aug, Paranoid schizophrenia F20.0 [facility] [place] [address] [address] Aug, [facility] [place] [address] [address] Aug, Posttraumatic stress disorder F43.10 ; P aranoid schizophrenia F20.0 and Attention deficit hyperactivity disorder (ADHD), inattentive type, 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 [place] [address] [address] Jul, Bipolar disorder, unspecified F31.9 [place] [place] [address] [address] Jul, [place] [address] [address] Jun, [place] [address] [address] Jun, Schizoaffective disorder, chronic 295.72 ; Posttraumatic stress disorder 309.81 and Attention deficit disorder of childhood without mention of hyperactivity 314.00 [place] [address] [address] May, [place] [address] [address] May, [facility], [place] [address] [address] May, Schizoaffective disorder, chronic 295.72 ; Posttraumatic stress disorder 309.81 ; Attention deficit disorder of childhood without mention of hyperactivity 314.00 and Bipolar disorder, unspecified 296.80 [place] [address] [address] Apr, Schizoaffective disorder, chronic 295.72 [facility], [place] [address] [address] Apr, [facility] [place] [address] [address] Apr, Schizoaffective disorder, chronic 295.72 ; Posttraumatic stress disorder 309.81 and Attention deficit disorder of childhood without mention of hyperactivity 314.00 [facility] [place] [address] [address] Mar, Disorganized schizophrenia, 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 [facility], [place] [address] [id number] [place] [address] Mar, [facility] [place] [address] [id number] [place] [address] Mar, [facility], [place] [address] [id number] [place] [address] Mar, [facility], [place] [address] [place] [id number] [place] [address] Mar, [facility], [place] [address] [id number] [place] [address] February, Schizoaffective disorder, chronic 295.72 [facility], [place] [address] [place] [id number] [place] [address] February, [facility], [place] [address] [id number] [place] [address] February, Attention deficit disorder of childhood without mention of hyperactivity 314.00 ; Posttraumatic stress disorder 309.81 and Schizoaffective disorder, chronic 295.72 [facility], [place] [address] [id number] [place] [address] 29 Jan, 2015 [facility], [place] [address] [place] [id number] [place] [address] 14 Jan, 2015 [facility], [place] [address] [place] [id number] [place] [address] Jan, [facility], [place] [address] [place] [id number] [place] [address] Dec, [facility], [place] [address] [id number] [place] [address] Dec, [facility], [place] [address] [id number] [place] [address] Dec, [facility], [place] [address] [id number] [place] [address] Dec, [facility], [place] [address] [id number] [place] [address] Dec, [facility], [place] [address] [place] [id number] [place] [address] Dec, [facility] [place] [facility] [address] [id number] [place] [address] Dec, [facility] [place] [facility] [address] [id number] [place] [address] Dec, [facility] [place] [facility] [address] [id number] [place] [address] Nov, [facility] [place] [facility] [address] [id number] [place] [address] Nov, [facility] [place] [facility] [address] [id number] [place] [address] Nov, [facility] [place] [facility] [address] [id number] [place] [address] Nov, [facility] [place] [facility] [address] [id number] [place] [address] Nov, [facility] [place] [facility] [address] [id number] [place] [address] Nov, [facility] [place] [facility] [address] [id number] [place] [address] Nov, [facility] [place] [facility] [address] [id number] [place] [address] Nov, [facility] [place] [facility] [address] [id number] [place] [address] Nov, [facility] [place] [facility] [address] [id number] [place] [address] Nov, [facility] [place] [facility] [address] [id number] [place] [address] Oct, [facility] [place] [facility] [address] [id number] [place] [address] Oct, [facility] [place] [facility] [address] [id number] [place] [address] Oct, [facility] [place] [facility] [address] [id number] [place] [address] 15 Oct, 2014 [facility] [place] [facility] [address] [id number] [place] [address] 15 Oct, 2014 [facility] [place] [facility] [address] [id number] [place] [address] Oct, [facility] [place] [facility] [address] [id number] [place] [address] Oct, [facility] [place] [facility] [address] [id number] [place] [address] 17 Sep, 2014 [facility] [place] [facility] [address] [id number] [place] [address] 17 Sep, 2014 [facility] [place] [facility] [address] [id number] [place] [address] 15 Sep, 2014 [facility] [place] [facility] [address] [id number] [place] [address] 15 Sep, 2014 [facility] [place] [facility] [address] [id number] [place] [address] Aug, [facility] [place] [facility] [address] [id number] [place] [address] Aug, [facility] [place] [facility] [address] [id number] [place] [address] Aug, [facility] [place] [facility] [address] [id number] [place] [address] 14 Aug, 2014 [facility] [place] [facility] [address] [id number] [place] [address] 14 Aug, 2014 [facility] [place] [facility] [address] [id number] [place] [address] Aug, [facility] [place] [facility] [address] [id number] [place] [address] 29 Jul, 2014 [facility] [place] [facility] [address] [id number] [place] [address] 29 Jul, 2014 [facility] [place] [facility] [address] [id number] [place] [address] 24 Jul, 2014 [facility] [place] [facility] [address] [id number] [place] [address] 24 Jul, 2014 [facility] [place] [facility] [address] [facility] [id number] [place] [address] 15 Jul, 2014 [facility] [place] [facility] [address] [id number] [place] [address] 15 Jul, 2014 [facility] [place] [facility] [address] [id number] [place] [address] 27 Jun, 2013 [facility] [place] [facility] [address] [id number] [place] [address] 27 Jun, 2013 [facility] [place] [facility] [address] [facility] [id number] [place] [address] 26 Jun, 2013 [facility] [place] [facility] [address] [id number] [place] [address] Jun, 2013 [facility] [place] [facility] [address] [id number] [place] [address] Jun, 2013 [facility] [place] [facility] [address] [id number] [place] [address] 26 Jun, 2013 [facility] [place] [facility] [address] [id number] [place] [address] 16 Jun, 2013 [facility] [place] [facility] [address] [id number] [place] [address] 16 Jun, 2013 [facility] [place] [facility] [address] [id number] [place] [address] 16 Jun, 2013 [facility] [place] [facility] [address] [id number] [place] [address] 16 Jun, 2013 [facility] [place] [facility] [address] [id number] [place] [address] Jun, [facility] [place] [facility] [address] [id number] [place] [address] May, [facility] [place] [facility] [address] [id number] [place] [address] May, [facility] [place] [facility] [address] [id number] [place] [address] May, [facility] [place] [facility] [address] [id number] [place] [address] May, [facility] [place] [facility] [address] [facility] [id number] [place] [address] May, [facility] [place] [facility] [address] [facility] [id number] [place] [address] May, [facility] [place] [facility] [address] [facility] [id number] [place] [address] May, [facility] [place] [facility] [address] [facility] [id number] [place] [address] May, [facility] [place] [facility] [address] [id number] [place] [address] May, [facility] [place] [facility] [address] [id number] [place] [address] May, [facility] [place] [facility] [address] [id number] [place] [address] Apr, [facility] [place] [facility] [address] [facility] [id number] [place] [address] Apr, [facility] [place] [facility] [address] [id number] [place] [address] Apr, [facility] [place] [facility] [address] [id number] [place] [address] Apr, [facility] [place] [facility] [address] [id number] [place] [address] Apr, [facility] [place] [facility] [address] [id number] [place] [address] Apr, [facility] [place] [facility] [address] [facility] [id number] [place] [address] Apr, [facility] [place] [facility] [address] [id number] [place] [address] Apr, [facility] [place] [facility] [address] [id number] [place] [address] Apr, [facility] [place] [facility] [address] [id number] [place] [address] Apr, [facility] [place] [facility] [address] [facility] [id number] [place] [address] Mar, [facility] [place] [facility] [address] [facility] [id number] [facility] [place] [address] Mar, [facility] [place] [facility] [address] [id number] [place] [address] Mar, [facility] [place] [facility] [address] [facility] [id number] [facility] [place] [address] Mar, [facility] [place] [facility] [address] [facility] [id number] [place] [address] Mar, [facility] [place] [facility] [address] [id number] [place] [address] Mar, [facility] [place] [facility] [address] [id number] [place] [address] Mar, [facility] [place] [facility] [address] [id number] [place] [address] Mar, [facility] [place] [facility] [address] [id number] [place] [address] 16 Mar, 2014 [facility] [place] [facility] [address] [id number] [place] [address] Mar, [facility] [place] [facility] [address] [id number] [place] [address] Mar, [facility] [place] [facility] [address] [id number] [place] [address] Mar, [facility] [place] [facility] [address] [facility] [id number] [place] [address] Mar, [facility] [place] [facility] [address] [id number] [place] [address] 10 Mar, 2014 [facility] [place] [facility] [address] [id number] [place] [address] 09 Mar, 2014 [facility] [place] [facility] [address] [id number] [place] [address] Mar, [facility] [place] [facility] [address] [id number] [place] [address] Mar, [facility] [place] [facility] [address] [facility] [id number] [place] [address] Mar, [facility] [place] [facility] [address] [facility] [id number] [place] [address] Mar, [facility] [place] [facility] [address] [id number] [place] [address] Mar, [facility] [place] [facility] [address] [id number] [place] [address] February, [facility] [place] [facility] [address] [facility] [id number] [place] [address] February, [facility] [place] [facility] [address] [id number] [place] [address] February, [facility] [place] [facility] [address] [id number] [place] [address] February, [facility] [place] [facility] [address] [id number] [place] [address] February, [facility] [place] [facility] [address] [id number] [place] [address] February, [facility] [place] [facility] [address] [id number] [place] [address] February, [facility] [place] [facility] [address] [id number] [place] [address] February, [facility] [place] [facility] [address] [id number] [place] [address] February, [facility] [place] [facility] [address] [facility] [id number] [place] [address] February, [facility] [place] [facility] [address] [id number] [place] [address] February, [facility] [place] [facility] [address] [id number] [place] [address] February, [facility] [place] [facility] [address] [id number] [place] [address] February, [facility] [place] [facility] [address] [id number] [place] [address] February, [facility] [place] [facility] [address] [id number] [place] [address] February, [facility] [place] [facility] [address] [id number] [place] [address] February, [facility] [place] [facility] [address] [id number] [place] [address] February, [facility] [place] [facility] [address] [id number] [place] [address] February, [facility] [place] [facility] [address] [id number] [place] [address] February, [facility] [place] [facility] [address] [id number] [place] [address] February, [facility] [place] [facility] [address] [id number] [place] [address] February, [facility] [place] [facility] [address] [id number] [place] [address] Jan, [facility] [place] [facility] [address] [id number] [place] [address] Jan, [facility] [place] [facility] [address] [id number] [place] [address] Jan, [facility] [place] [facility] [address] [id number] [place] [address] Jan, [facility] [place] [facility] [address] [id number] [place] [address] Jan, [facility] [place] [facility] [address] [id number] [place] [address] Jan, [facility] [place] [facility] [address] [id number] [place] [address] Jan, [facility] [place] [facility] [address] [id number] [place] [address] Jan, [facility] [place] [facility] [address] [id number] [place] [address] 21 Dec, 2013 [facility] [place] [facility] [address] [facility] [id number] [facility] [place] [address] 20 Dec, 2013 [facility] [place] [facility] [address] [facility] [id number] [facility] [place] [address] 20 Dec, 2013 [facility] [place] [facility] [address] [id number] [facility] [place] [address] 19 Dec, 2013 [facility] [place] [facility] [address] [id number] [facility] [place] [address] 19 Dec, 2013 [facility] [place] [facility] [address] [facility] [id number] [facility] [place] [address] 15 Dec, 2013 [facility] [place] [facility] [address] [id number] [place] [address] 15 Dec, 2013 [facility] [place] [facility] [address] [id number] [place] [address] 11 Dec, 2013 [facility] [place] [facility] [address] [id number] [facility] [place] [address] 10 Dec, 2013 [facility] [place] [facility] [address] [id number] [facility] [place] [address] 10 Dec, 2013 [facility] [place] [facility] [address] [id number] [facility] [place] [address] 18 Nov, 2013 [facility] [place] [facility] [address] [id number] [place] [address] 17 Nov, 2013 [facility] [place] [facility] [address] [id number] [place] [address] Nov, [facility] [place] [facility] [address] [id number] [facility] [place] [address] Nov, [facility] [place] [facility] [address] [id number] [place] [address] Nov, [facility] [place] [facility] [address] [id number] [place] [address] Oct, [facility] [place] [facility] [address] [id number] [place] [address] Oct, [facility] [place] [facility] [address] [id number] [place] [address] Oct, [facility] [place] [facility] [address] [id number] [place] [address] Sep, [facility] [place] [facility] [address] [id number] [place] [address] Sep, 2012 [facility] [place] [facility] [address] [id number] [place] [address] Sep, 2012 [facility] [place] [facility] [address] [id number] [place] [address] Sep, [facility] [place] [facility] [address] [id number] [place] [address] Aug, [facility] [place] [facility] [address] [id number] [place] [address] Aug, [facility] [place] [facility] [id number] [place] [address] Jul, [facility] [place] [facility] [address] [id number] [place] [address] Jul, [facility] [place] [facility] [address] [id number] [place] [address] Jul, [facility] [place] [facility] [address] [id number] [place] [address] Jul, [facility] [place] [facility] [address] [id number] [place] [address] Jul, [facility] [place] [facility] [address] [id number] [place] [address] 25 Jun, 2012 [facility] [place] [facility] [address] [id number] [place] [address] 25 Sep, 2012 [facility] [place] [facility] [id number] [place] [address] 19 Sep, 2012 [facility] [place] [facility] [address] [id number] [place] [address] 18 Sep, 2012 [facility] [place] [facility] [address] [id number] [place] [address] 16 Sep, 2013 [facility] [place] [facility] [address] [id number] [facility] [place] [address] 12 Jun, 2013 [facility] [place] [facility] [address] [facility] [id number] [facility] [place] [address] 11 Jun, 2013 [facility] [place] [facility] [address] [id number] [facility] [place] [address] 30 May, 2013 [facility] [place] [facility] [address] [id number] [place] [address] May, [facility] [place] [facility] [address] [facility] [id number] [place] [address] Apr, [facility] [place] [facility] [address] [id number] [facility] [place] [address] Apr, [facility] [place] [facility] [address] [id number] [place] [address] Apr, [facility] [place] [facility] [address] [id number] [place] [address] Mar, [facility] [place] [facility] [address] [id number] [facility] [place] [address] Mar, [facility] [place] [facility] [address] [id number] [facility] [place] [address] February, [facility] [place] [facility] [address] [id number] [place] [address] February, [facility] [place] [facility] [address] [id number] [place] [address] February, [facility] [place] [facility] [address] [id number] [facility] [place] [address] February, [facility] [place] [facility] [address] [id number] [place] [address] Jan, [facility] [place] [facility] [address] [id number] [place] [address] 17 Jan, 2013 [facility] [place] [address] [id number] [place] [address] 16 Jan, 2013 [facility] [address] [id number] [place] [address] 29 Dec, 2012 [facility] [address] [id number] [place] [address] Dec, [facility] [address] [id number] [place] [address] Dec, [facility] [address] [id number] [place] [address] Dec, [facility] [address] [id number] [place] [address] Nov, [facility] [address] [id number] [place] [address] Nov, [facility] [address] [id number] [place] [address] Oct, [facility] [address] [id number] [place] [address] Oct, [facility] [address] [id number] [place] [address] Oct, [facility] [address] [id number] [place] [address] Oct, [facility] [address] [id number] [place] [address] Aug, [facility] [address] [id number] [place] [address] Aug, [facility] [address] [id number] [place] [address] Jun, [facility] [address] [id number] [place] [address] May, [facility] [address] [id number] [place] [address] May, [facility] [address] [id number] [place] [address] Apr, [facility] [address] [id number] [place] [address] Apr, [facility] [address] [id number] [place] [address] 05 Apr, 2012 [facility] [address] [id number] [place] [address] Mar, [facility] [address] [id number] [place] [address] Mar, [facility] [address] [id number] [place] [address] 13 Mar, 2012 [facility] [address] [id number] [place] [address] Mar, [facility] [address] [id number] [place] [address] Mar, [facility] [address] [id number] [place] [address] February, [facility] [address] [id number] [place] [address] February, [facility] [address] [id number] [place] [address] February, [facility] [address] [id number] [place] [address] February, [facility] [address] [id number] [place] [address] February, [facility] [address] [id number] [place] [address] February, [facility] [address] [id number] [place] [address] February, [facility] [address] [id number] [place] [address] Jan, [facility] [address] [id number] [place] [address] 18 Jan, 2012 [facility] [address] [id number] [place] [address] 17 Jan, 2012 [facility] [address] [id number] [place] [address] 13 Jan, 2012 [facility] [address] [id number] [facility] [place] [address] 10 Jan, 2012 [facility] [address] [id number] [facility] [place] [address] 04 Jan, 2012 [facility] [address] [id number] [facility] [place] [address] 30 Dec, 2011 [facility] [address] [id number] [facility] [place] [address] 24 Dec, 2011 [facility] [address] [facility] [id number] [facility] [place] [address] 20 Dec, 2011 [facility] [address] [id number] [facility] [place] [address] 13 Dec, 2011 [facility] [address] [id number] [facility] [place] [address] Dec, [facility] [address] [id number] [facility] [place] [address] 28 Nov, 2011 [facility] [address] [id number] [facility] [place] [address] Nov, [facility] [address] [id number] [facility] [place] [address] 25 Nov, 2011 [facility] [address] [id number] [place] [address] 14 Nov, 2011 [facility] [address] [id number] [facility] [place] [address] Nov, [facility] [address] [id number] [facility] [place] [address] Nov, [facility] [address] [id number] [place] [address] Oct, [facility] [address] [id number] [facility] [place] [address] Oct, [facility] [address] [id number] [place] [address] Oct, [facility] [address] [id number] [place] [address] Oct, [facility] [address] [id number] [place] [address] Oct, [facility] [address] [id number] [place] [address] Sep, [facility] [address] [id number] [place] [address] Sep, [facility] [address] [id number] [place] [address] 20 Sep, 2011 [facility] [address] [id number] [place] [address] 14 Sep, 2011 [facility] [address] [id number] [place] [address] 14 Sep, 2011 [facility] [address] [id number] [place] [address] Sep, [facility] [address] [id number] [place] [address] Sep, [facility] [address] [id number] [place] [address] Sep, [facility] [address] [id number] [place] [address] Sep, [facility] [address] [id number] [place] [address] Aug, [facility] [address] [id number] [place] [address] Aug, [facility] [address] [id number] [place] [address] Aug, [facility] [id number] [place] [address] Aug, [facility] [address] [id number] [place] [address] Aug, [facility] [address] [id number] [place] [address] Aug, [facility] [address] [id number] [place] [address] Aug, [facility] [address] [id number] [place] [address] 16 Aug, 2011 [facility] [address] [id number] [place] [address] Aug, [facility] [address] [id number] [place] [address] Aug, [facility] [address] [facility] [id number] [place] [address] Aug, [facility] [address] [id number] [place] [address] Aug, [facility] [address] [id number] [place] [address] Jul, [facility] [address] [id number] [place] [address] Jul, [facility] [address] [id number] [place] [address] 24 Jul, 2011 [facility] [address] [id number] [place] [address] Jul, [facility] [address] [id number] [place] [address] Jul, [facility] [address] [id number] [place] [address] Jul, [facility] [address] [id number] [place] [address] 18 Jul, 2011 [facility] [address] [id number] [place] [address] 11 Jul, 2011 [facility] [address] [id number] [place] [address] 10 Jul, 2011 [facility] [address] [id number] [place] [address] 10 Jul, 2011 [facility] [address] [id number] [place] [address] Nov, [facility] [place] [address] [id number] [place] [address] Aug, [facility] [place] [address] [id number] [place] [address] Aug, [facility] [place] [address] [id number] [place] [address] Aug, [facility] [place] [address] [id number] [place] [address] Aug, [facility] [place] [address] [id number] [place] [address] Jul, IMMUNIZATIONS No Known Immunizations SOCIAL HISTORY Never Assessed REASON FOR VISIT PLAN OF CARE VITAL SIGNS MEDICATIONS Unknown Medications RESULTS No Results PROCEDURES Procedure Date Ordered Result Body Site IMMUNOTHERAPY, ONE INJECTION March 08, 2014 INSTRUCTIONS MEDICATIONS ADMINISTERED No Known Medications [...] Suicide attempt by hanging 2015 Hospitalization History [facility] 01/30/2018-02/10/20 08 Hospitalization History [facility] 05/04/18-
--- OUTSIDE RECORDS SUMMARY | 2020-04-04 01:49 | XMS REPORT ---
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 Name Role Phone Migration, Doctor Unavailable Unavailable PROBLEMS Type Condition ICD9-CM Code [id number] Code Onset Dates Condition S tatus SNOMED Code Problem Paranoid schizophrenia F20.0 Active 91953410 Problem Borderline personality disorder F60.3 Active 32664505 Problem Schizoaffective disorder, depressive type F25.1 Active 49930035 Problem Schizoaffective disorder, unspecified F25.9 Active 49373907 Problem Attention deficit hyperactivity disorder (ADHD), inattentive type, 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 06047039 Problem Posttraumatic stress disorder F43.10 Active 77200909 Problem High risk medication use Z79.899 Activ e [id number] ALLERGIES No Information ENCOUNTERS Encounter Location Date Diagnosis [place] [address] [address] Nov, [place] [address] [address] Oct, Paranoid schizophrenia F20.0 ; Attention deficit hyperactivity disorder (ADHD), inattentive type, 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 ; Posttraumatic stress disorder F43.10 and Borderline personality disorder F60.3 [place] [address] [address] Oct, [place] [address] [address] Sep, Paranoid schizophrenia F20.0 ; Attention deficit hyperactivity disorder (ADHD), inattentive type, 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 ; Posttraumatic stress disorder F43.10 and Borderline personality disorder F60.3 [facility] [address] [address] Jul, [facility] [address] [address] Jun, Paranoid schizophrenia F20.0 ; Other katherin g term (current) 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 Z79.899 ; Attention deficit hyperactivity disorder (ADHD), inattentive type, 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 and Borderline personality disorder F60.3 [facility] [address] [address] Apr, Paranoid schizophrenia F20.0 [facility] [address] [address] Apr, Paranoid schizophrenia F20.0 ; Posttraum atic stress disorder F43.10 ; Attention deficit hyperactivity disorder (ADHD), inattentive type, 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 and Borderline personality disorder F60.3 [facility] [address] [address] Mar, Paranoid schizophrenia F20.0 [facility] [address] [address] Mar, Paranoid schizophrenia F20.0 ; Posttraum atic stress disorder F43.10 ; Attention deficit hyperactivity disorder (ADHD), inattentive type, 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 and Borderline personality disorder F60.3 [place] [address] [address] February, Paranoid schizophrenia F20.0 [facility] [address] [address] Jan, Paranoid schizophrenia F20.0 ; Posttraum atic stress disorder F43.10 ; Attention deficit hyperactivity disorder (ADHD), inattentive type, 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 and Borderline personality disorder F60.3 [facility] [address] [address] Dec, Paranoid schizophrenia F20.0 ; Posttraum atic stress disorder F43.10 ; Attention deficit hyperactivity disorder (ADHD), inattentive type, 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 and Borderline personality disorder F60.3 [facility] [address] [address] Dec, Paranoid schizophrenia F20.0 ; Posttraum atic stress disorder F43.10 ; Attention deficit hyperactivity disorder (ADHD), inattentive type, 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 and Borderline personality disorder F60.3 [facility] [address] [address] Oct, Paranoid schizophrenia F20.0 ; Posttraum atic stress disorder F43.10 ; Attention deficit hyperactivity disorder (ADHD), inattentive type, 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 and Borderline personality disorder F60.3 [facility] [address] [place] [id number] [place] [address] Oct, Paranoid schizophrenia F20.0 ; Posttraum atic stress disorder F43.10 ; Attention deficit hyperactivity disorder (ADHD), inattentive type, 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 and Borderline personality disorder F60.3 [facility] [address] [place] [id number] [place] [address] Aug, [facility] [address] [address] Aug, Paranoid schizophrenia F20.0 ; Posttraum atic stress disorder F43.10 ; Attention deficit hyperactivity disorder (ADHD), inattentive type, 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 and Borderline personality disorder F60.3 [facility] [address] [facility] [id number] [place] [address] Jul, Dry skin dermatitis L85.3 [facility] [address] [place] [id number] [place] [address] Jul, [facility] [address] [place] [id number] [place] [address] Jul, Paranoid schizophrenia F20.0 [facility] [address] [place] [id number] [place] [address] May, Paranoid schizophrenia F20.0 ; Posttraum atic stress disorder F43.10 ; Attention deficit hyperactivity disorder (ADHD), inattentive type, 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 and Borderline personality disorder F60.3 [facility] [address] [place] [id number] [place] [address] May, [facility] [address] [address] May, Paranoid schizophrenia F20.0 [facility] [address] [address] May, Paranoid schizophrenia F20.0 ; Posttraum atic stress disorder F43.10 ; Attention deficit hyperactivity disorder (ADHD), inattentive type, 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 and Borderline personality disorder F60.3 [facility] [address] [address] Apr, [facility] [address] [address] Apr, Paranoid schizophrenia F20.0 ; Posttraum atic stress disorder F43.10 ; Attention deficit hyperactivity disorder (ADHD), inattentive type, 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 and Borderline personality disorder F60.3 [facility] [address] [address] Apr, [facility] [address] [address] Apr, Schizoaffective disorder, depressive typ e F25.1 and Borderline personality disorder F60.3 [facility] [address] [address] Apr, Paranoid schizophrenia F20.0 ; Posttraum atic stress disorder F43.10 ; Attention deficit hyperactivity disorder (ADHD), inattentive type, 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 and Borderline personality disorder F60.3 [facility] [address] [address] Apr, [facility] [address] [address] Apr, Paranoid schizophrenia F20.0 ; Posttraum atic stress disorder F43.10 ; Attention deficit hyperactivity disorder (ADHD), inattentive type, 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 and Borderline personality disorder F60.3 [facility] [address] [address] Apr, [facility] [address] [address] Mar, Paranoid schizophrenia F20.0 [facility] [address] [place] [id number] Mar, [facility] [address] [address] Mar, Paranoid schizophrenia F20.0 ; Posttraum atic stress disorder F43.10 ; Attention deficit hyperactivity disorder (ADHD), inattentive type, 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 and Borderline personality disorder F60.3 [facility] [address] [address] February, Paranoid schizophrenia F20.0 [facility] [address] [address] February, Paranoid schizophrenia F20.0 ; Posttraum atic stress disorder F43.10 ; Attention deficit hyperactivity disorder (ADHD), inattentive type, 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 and Borderline personality disorder F60.3 [facility] [address] [address] February, Paranoid schizophrenia F20.0 ; Posttraum atic stress disorder F43.10 ; Attention deficit hyperactivity disorder (ADHD), inattentive type, 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 and Borderline personality disorder F60.3 [facility] [address] [address] February, [facility] [address] [address] February, Paranoid schizophrenia F20.0 [facility] [address] [address] February, Paranoid schizophrenia F20.0 [facility] [address] [address] February, Paranoid schizophrenia F20.0 ; Posttraum atic stress disorder F43.10 ; Attention deficit hyperactivity disorder (ADHD), inattentive type, 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 and Borderline personality disorder F60.3 [facility] [address] [address] Jan, Paranoid schizophrenia F20.0 ; Posttraum atic stress disorder F43.10 ; Attention deficit hyperactivity disorder (ADHD), inattentive type, 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 and Borderline personality disorder F60.3 [facility] [address] [address] Jan, Paranoid schizophrenia F20.0 [facility] [address] [address] Jan, Paranoid schizophrenia F20.0 [facility] [address] [address] Jan, Paranoid schizophrenia F20.0 ; Posttraum atic stress disorder F43.10 ; Attention deficit hyperactivity disorder (ADHD), inattentive type, 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 and Borderline personality disorder F60.3 [facility] [address] [address] Dec, [facility] [address] [address] Nov, Paranoid schizophrenia F20.0 ; Posttraum atic stress disorder F43.10 ; Attention deficit hyperactivity disorder (ADHD), inattentive type, 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 and Borderline personality disorder F60.3 [place] [address] [address] Nov, [facility] [address] [address] Oct, Paranoid schizophrenia F20.0 [facility] [address] [address] Oct, Paranoid schizophrenia F20.0 ; Posttraum atic stress disorder F43.10 ; Attention deficit hyperactivity disorder (ADHD), inattentive type, 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 ; Borderline personality disorder F60.3 and 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 [facility] [address] [address] Oct, [facility] [address] [address] Oct, [facility] [address] [address] Sep, [facility] [address] [place] [address] Sep, Paranoid schizophrenia F20.0 ; Posttraum atic stress disorder F43.10 ; Attention deficit hyperactivity disorder (ADHD), inattentive type, 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 and Borderline personality disorder F60.3 [facility] [address] [address] Sep, Paranoid schizophrenia F20.0 [facility] [address] [address] Aug, Paranoid schizophrenia F20.0 ; Posttraum atic stress disorder F43.10 ; Attention deficit hyperactivity disorder (ADHD), inattentive type, 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 and Borderline personality disorder F60.3 [facility] [address] [address] Aug, Paranoid schizophrenia F20.0 ; Posttraum atic stress disorder F43.10 ; Attention deficit hyperactivity disorder (ADHD), inattentive type, 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 and Borderline personality disorder F60.3 [facility] [address] [address] Aug, [facility] [address] [address] Jul, Paranoid schizophrenia F20.0 ; Posttraum atic stress disorder F43.10 ; Attention deficit hyperactivity disorder (ADHD), inattentive type, 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 and Borderline personality disorder F60.3 [facility] [address] [address] Jul, Paranoid schizophrenia F20.0 [facility] [address] [place] [id number] Jul, Paranoid schizophrenia F20.0 ; Posttraum atic stress disorder F43.10 ; Attention deficit hyperactivity disorder (ADHD), inattentive type, 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 and Borderline personality disorder F60.3 [facility] [address] [facility] [place] [address] Jun, Paranoid schizophrenia F20.0 ; Posttraum atic stress disorder F43.10 ; Attention deficit hyperactivity disorder (ADHD), inattentive type, 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 and Borderline personality disorder F60.3 [facility] [address] [place] [id number] [place] [address] May, Other chcf (current) drug therapy Z 79.899 [facility] [address] [address] May, [facility] [address] [address] May, [facility] [address] [address] May, Attention deficit hyperactivity disorder (ADHD), inattentive type, 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 [facility] [address] [place] [id number] [place] [address] May, [facility] [address] [place] [id number] [place] [address] May, Attention deficit hyperactivity disorder (ADHD), inattentive type, 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 [facility] [address] [place] [id number] [place] [address] May, Paranoid schizophrenia F20.0 ; Posttraum atic stress disorder F43.10 ; Attention deficit hyperactivity disorder (ADHD), inattentive type, 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 and Other chcf (current) drug therapy Z79.899 [facility] [address] [place] [id number] [place] [address] Apr, Paranoid schizophrenia F20.0 [facility] [address] [place] [id number] [place] [address] Apr, Paranoid schizophrenia F20.0 ; Posttraum atic stress disorder F43.10 and Attention deficit hyperactivity disorder (ADHD), inattentive type, 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 [facility] [id number] [place], [place] [address] February, [facility] [address] [place] [id number] February, Paranoid schizophrenia F20.0 ; Posttraum atic stress disorder F43.10 and Attention deficit hyperactivity disorder (ADHD), inattentive type, 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 [facility] [address] [address] February, Paranoid schizophrenia F20.0 ; Posttraum atic stress disorder F43.10 and Attention deficit hyperactivity disorder (ADHD), inattentive type, 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 [facility] [address] [place] [id number] Jan, Paranoid schizophrenia F20.0 ; Posttraum atic stress disorder F43.10 and Attention deficit hyperactivity disorder (ADHD), inattentive type, 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 [facility] [address] [id number] Dec, Dental examination Z01.20 [facility] [address] [id number] Nov, Dental examination Z01.20 [facility] [address] [id number] Nov, Dental examination Z01.20 [facility] [address] [id number] Nov, Dental caries K02.9 [facility] [address] [address] Nov, High risk medication use Z79.899 [facility] [address] [place] [id number] Nov, Paranoid schizophrenia F20.0 ; Posttraum atic stress disorder F43.10 ; Attention deficit hyperactivity disorder (ADHD), inattentive type, 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 and Borderline personality disorder in adult F60.3 [facility] [address] [id number] Oct, Dental caries K02.9 [facility] [address] [address] Sep, Paranoid schizophrenia F20.0 ; Posttraum atic stress disorder F43.10 and Attention deficit hyperactivity disorder (ADHD), inattentive type, 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 [facility] [address] [address] Jul, [facility] [address] [address] Jun, Paranoid schizophrenia F20.0 ; Posttraum atic stress disorder F43.10 and Attention deficit hyperactivity disorder (ADHD), inattentive type, 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 [facility] [address] [id number] [place] [id number] Jun, Dental examination Z01.20 [facility] [address] [address] Jun, [facility] [address] [address] May, Paranoid schizophrenia F20.0 [facility] [address] [address] May, Paranoid schizophrenia F20.0 ; Posttraum atic stress disorder F43.10 and Attention deficit hyperactivity disorder (ADHD), inattentive type, 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 [facility] [address] [address] May, [facility] [address] [place] [id number] [place] [address] May, Paranoid schizophrenia F20.0 [facility] [address] [place] [id number] [place] [address] May, [facility] [address] [address] May, Paranoid schizophrenia F20.0 [facility] [address] [address] May, Schizoaffective disorder, unspecified F2 5.9 [facility] [address] [address] May, Schizoaffective disorder, unspecified F2 5.9 [facility] [address] [place] [id number] [place] [address] May, [facility] [address] [address] May, Paranoid schizophrenia F20.0 [facility] [address] [address] May, Paranoid schizophrenia F20.0 ; Posttraum atic stress disorder F43.10 and Attention deficit hyperactivity disorder (ADHD), inattentive type, 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 [facility] [address] [place] [id number] [place] [address] Mar, [facility] [address] [address] Mar, Paranoid schizophrenia F20.0 ; Posttraum atic stress disorder F43.10 and Attention deficit hyperactivity disorder (ADHD), inattentive type, 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 [facility] [id number] [place] [address] Mar, Paranoid schizophrenia F20.0 [facility] [address] [address] Mar, Paranoid schizophrenia F20.0 ; Attention deficit hyperactivity disorder (ADHD), inattentive type, 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 and Posttraumatic stress disorder F43.10 [facility] [address] [address] Mar, [facility] [address] [address] Mar, Paranoid schizophrenia F20.0 ; Posttraum atic stress disorder F43.10 and Attention deficit hyperactivity disorder (ADHD), inattentive type, 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 [facility] [address] [address] February, [facility] [address] [address] February, [facility] [address] [address] February, [facility] [address] [address] February, [facility] [address] [address] Jan, Paranoid schizophrenia F20.0 [facility] [address] [id number] Jan, Dental examination Z01.20 [facility] [address] [id number] Jan, Dental caries K02.9 [facility] [address] [id number] Jan, Dental examination Z01.20 [facility] [address] [id number] Dec, Encounter for dental examination Z01.20 [facility] [address] [address] Dec, Paranoid schizophrenia F20.0 [facility] [address] [id number] [place] [id number] Dec, Dental examination Z01.20 [facility] [address] [id number] [place] [address] Dec, [facility] [address] [address] Dec, Paranoid schizophrenia F20.0 ; Posttraum atic stress disorder F43.10 and Attention deficit hyperactivity disorder (ADHD), inattentive type, 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 [facility] [address] [address] Nov, Schizoaffective disorder, unspecified F2 5.9 [facility] [address] [address] Oct, Paranoid schizophrenia F20.0 [facility] [address] [address] Oct, [facility] [address] [address] Sep, Paranoid schizophrenia F20.0 ; Posttraum atic stress disorder F43.10 and Attention deficit hyperactivity disorder (ADHD), inattentive type, 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 [facility] [address] [address] Sep, [facility] [address] [address] Sep, Paranoid schizophrenia F20.0 ; Posttraum atic stress disorder F43.10 and Attention deficit hyperactivity disorder (ADHD), inattentive type, 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 [facility] [address] [address] Aug, Paranoid schizophrenia F20.0 [facility] [address] [address] Aug, [facility] [address] [address] Aug, Posttraumatic stress disorder F43.10 ; P aranoid schizophrenia F20.0 and Attention deficit hyperactivity disorder (ADHD), inattentive type, 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 [place] [address] [address] Jul, Bipolar disorder, unspecified F31.9 [place] [address] [address] Jul, [place] [address] [address] Jun, [place] [address] [address] Jun, Schizoaffective disorder, chronic 295.72 ; Posttraumatic stress disorder 309.81 and Attention deficit disorder of childhood without mention of hyperactivity 314.00 [place] [address] [address] May, [place] [address] [address] May, [facility] [address] [address] May, Schizoaffective disorder, chronic 295.72 ; Posttraumatic stress disorder 309.81 ; Attention deficit disorder of childhood without mention of hyperactivity 314.00 and Bipolar disorder, unspecified 296.80 [place] [address] [address] Apr, Schizoaffective disorder, chronic 295.72 [facility] [address] [address] Apr, [facility] [address] [address] Apr, Schizoaffective disorder, chronic 295.72 ; Posttraumatic stress disorder 309.81 and Attention deficit disorder of childhood without mention of hyperactivity 314.00 [facility] [address] [address] Mar, Disorganized schizophrenia, 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 [facility] [address] [id number] [place] [address] Mar[facility] [address] [id number] [place] [address] Mar, [facility] [address] [id number] [place] [address] Mar, [facility] [id number] [place] [address] Mar, [facility] [address] [id number] [place] [address] February, Schizoaffective disorder, chronic 295.72 [facility] [id number] [place] [address] February, [facility] [address] [id number] [place] [address] February, Attention deficit disorder of childhood without mention of hyperactivity 314.00 ; Posttraumatic stress disorder 309.81 and Schizoaffective disorder, chronic 295.72 [facility] [address] [id number] [place] [address] 29 Jan, 2015 [facility] [id number] [place] [address] 14 Jan, 2015 [facility] [id number] [place] [address] Jan, [facility] [id number] [place] [address] Dec, [facility] [address] [id number] [place] [address] Dec, [facility] [address] [id number] [place] [address] Dec, [facility] [address] [id number] [place] [address] Dec, [facility] [address] [id number] [place] [address] Dec, [facility] [id number] [place] [address] Dec, [facility] [place] [facility] [address] [id number] [place] [address] Dec, [facility] [place] [facility] [address] [id number] [place] [address] Dec, [facility] [place] [facility] [address] [id number] [place] [address] Nov, [facility] [place] [facility] [address] [id number] [place] [address] Nov, [facility] [place] [facility] [address] [id number] [place] [address] Nov, [facility] [place] [facility] [address] [id number] [place] [address] Nov, [facility] [place] [facility] [address] [id number] [place] [address] Nov, [facility] [place] [facility] [address] [id number] [place] [address] Nov, [facility] [place] [facility] [address] [id number] [place] [address] Nov, [facility] [place] [facility] [address] [id number] [place] [address] Nov, [facility] [place] [facility] [address] [id number] [place] [address] Nov, [facility] [place] [facility] [address] [id number] [place] [address] Nov, [facility] [place] [facility] [address] [id number] [place] [address] Oct, [facility] [place] [facility] [address] [id number] [place] [address] Oct, [facility] [place] [facility] [address] [id number] [place] [address] Oct, [facility] [place] [facility] [address] [id number] [place] [address] 15 Oct, 2014 [facility] [place] [facility] [address] [id number] [place] [address] 15 Oct, 2014 [facility] [place] [facility] [address] [id number] [place] [address] Oct, [facility] [place] [facility] [address] [id number] [place] [address] Oct, [facility] [place] [facility] [address] [id number] [place] [address] 17 Sep, 2014 [facility] [place] [facility] [address] [id number] [place] [address] 17 Sep, 2014 [facility] [place] [facility] [address] [id number] [place] [address] 15 Sep, 2014 [facility] [place] [facility] [address] [id number] [place] [address] 15 Sep, 2014 [facility] [place] [facility] [address] [id number] [place] [address] Aug, [facility] [place] [facility] [address] [id number] [place] [address] Aug, [facility] [place] [facility] [address] [id number] [place] [address] Aug, [facility] [place] [facility] [address] [id number] [place] [address] 14 Aug, 2014 [facility] [place] [facility] [address] [id number] [place] [address] 14 Aug, 2014 [facility] [place] [facility] [address] [id number] [place] [address] Aug, [facility] [place] [facility] [address] [id number] [place] [address] 29 Jul, 2014 [facility] [place] [facility] [address] [id number] [place] [address] 29 Jul, 2014 [facility] [place] [facility] [address] [id number] [place] [address] 24 Jul, 2014 [facility] [place] [facility] [address] [id number] [place] [address] 24 Jul, 2014 [facility] [place] [facility] [address] [facility] [id number] [place] [address] 15 Jul, 2014 [facility] [place] [facility] [address] [id number] [place] [address] 15 Jul, 2014 [facility] [place] [facility] [address] [id number] [place] [address] 27 Jun, 2013 [facility] [place] [facility] [address] [id number] [place] [address] 27 Jun, 2013 [facility] [place] [facility] [address] [facility] [id number] [place] [address] 26 Jun, 2013 [facility] [place] [facility] [address] [id number] [place] [address] Jun, 2013 [facility] [place] [facility] [address] [id number] [place] [address] Jun, 2013 [facility] [place] [facility] [address] [id number] [place] [address] 26 Jun, 2013 [facility] [place] [facility] [address] [id number] [place] [address] 16 Jun, 2013 [facility] [place] [facility] [address] [id number] [place] [address] 16 Jun, 2013 [facility] [place] [facility] [address] [id number] [place] [address] 16 Jun, 2013 [facility] [place] [facility] [address] [id number] [place] [address] 16 Jun, 2013 [facility] [place] [facility] [address] [id number] [place] [address] Jun, [facility] [place] [facility] [address] [id number] [place] [address] May, [facility] [place] [facility] [address] [id number] [place] [address] May, [facility] [place] [facility] [address] [id number] [place] [address] May, [facility] [place] [facility] [address] [id number] [place] [address] May, [facility] [place] [facility] [address] [facility] [id number] [place] [address] May, [facility] [place] [facility] [address] [facility] [id number] [place] [address] May, [facility] [place] [facility] [address] [facility] [id number] [place] [address] May, [facility] [place] [facility] [address] [facility] [id number] [place] [address] May, [facility] [place] [facility] [address] [id number] [place] [address] May, [facility] [place] [facility] [address] [id number] [place] [address] May, [facility] [place] [facility] [address] [id number] [place] [address] Apr, [facility] [place] [facility] [address] [facility] [id number] [place] [address] Apr, [facility] [place] [facility] [address] [id number] [place] [address] Apr, [facility] [place] [facility] [address] [id number] [place] [address] Apr, [facility] [place] [facility] [address] [id number] [place] [address] Apr, [facility] [place] [facility] [address] [id number] [place] [address] Apr, [facility] [place] [facility] [address] [facility] [id number] [place] [address] Apr, [facility] [place] [facility] [address] [id number] [place] [address] Apr, [facility] [place] [facility] [address] [id number] [place] [address] Apr, [facility] [place] [facility] [address] [id number] [place] [address] Apr, [facility] [place] [facility] [address] [facility] [id number] [place] [address] Mar, [facility] [place] [facility] [address] [facility] [id number] [facility] [place] [address] Mar, [facility] [place] [facility] [address] [id number] [place] [address] Mar, [facility] [place] [facility] [address] [facility] [id number] [facility] [place] [place] [address] Mar, [facility] [place] [facility] [address] [facility] [id number] [place] [address] Mar, [facility] [place] [facility] [address] [id number] [place] [address] Mar, [facility] [place] [facility] [address] [id number] [place] [address] Mar, [facility] [place] [facility] [address] [id number] [place] [address] Mar, [facility] [place] [facility] [address] [id number] [place] [address] 16 Mar, 2014 [facility] [place] [facility] [address] [id number] [place] [address] Mar, [facility] [place] [facility] [address] [id number] [place] [address] Mar, [facility] [place] [facility] [address] [id number] [place] [address] Mar, [facility] [place] [facility] [address] [facility] [id number] [place] [address] Mar, [facility] [place] [facility] [address] [id number] [place] [address] 10 Mar, 2014 [facility] [place] [facility] [address] [id number] [place] [address] 09 Mar, 2014 [facility] [place] [facility] [address] [id number] [place] [address] Mar, [facility] [place] [facility] [address] [id number] [place] [address] Mar, [facility] [place] [facility] [address] [facility] [id number] [place] [address] Mar, [facility] [place] [facility] [address] [facility] [id number] [place] [address] Mar, [facility] [place] [facility] [address] [id number] [place] [address] Mar, [facility] [place] [facility] [address] [id number] [place] [address] February, [facility] [place] [facility] [address] [facility] [id number] [place] [address] February, [facility] [place] [facility] [address] [id number] [place] [address] February, [facility] [place] [facility] [address] [id number] [place] [address] February, [facility] [place] [facility] [address] [id number] [place] [address] February, [facility] [place] [facility] [address] [id number] [place] [address] February, [facility] [place] [facility] [address] [id number] [place] [address] February, [facility] [place] [facility] [address] [id number] [place] [address] February, [facility] [place] [facility] [address] [id number] [place] [address] February, [facility] [place] [facility] [address] [facility] [id number] [place] [address] February, [facility] [place] [facility] [address] [id number] [place] [address] February, [facility] [place] [facility] [address] [id number] [place] [address] February, [facility] [place] [facility] [address] [id number] [place] [address] February, [facility] [place] [facility] [address] [id number] [place] [address] February, [facility] [place] [facility] [address] [id number] [place] [address] February, [facility] [place] [facility] [address] [id number] [place] [address] February, [facility] [place] [facility] [address] [id number] [place] [address] February, [facility] [place] [facility] [address] [id number] [place] [address] February, [facility] [place] [facility] [address] [id number] [place] [address] February, [facility] [place] [facility] [address] [id number] [place] [address] February, [facility] [place] [facility] [address] [id number] [place] [address] February, [facility] [place] [facility] [address] [id number] [place] [address] Jan, [facility] [place] [facility] [address] [id number] [place] [address] Jan, [facility] [place] [facility] [address] [id number] [place] [address] Jan, [facility] [place] [facility] [address] [id number] [place] [address] Jan, [facility] [place] [facility] [address] [id number] [place] [address] Jan, [facility] [place] [facility] [address] [id number] [place] [address] Jan, [facility] [place] [facility] [address] [id number] [place] [address] Jan, [facility] [place] [facility] [address] [id number] [place] [address] Jan, [facility] [place] [facility] [address] [id number] [place] [address] 21 Dec, 2013 [facility] [place] [facility] [address] [facility] [id number] [facility] [address] 20 Dec, 2013 [facility] [place] [facility] [address] [facility] [id number] [facility] [place] [address] 20 Dec, 2013 [facility] [place] [facility] [address] [id number] [facility] [address] 19 Dec, 2013 [facility] [place] [facility] [address] [id number] [facility] [address] 19 Dec, 2013 [facility] [place] [facility] [address] [facility] [id number] [facility] [place] [address] 15 Dec, 2013 [facility] [place] [facility] [address] [id number] [place] [address] 15 Dec, 2013 [facility] [place] [facility] [address] [id number] [place] [address] 11 Dec, 2013 [facility] [place] [facility] [address] [id number] [facility] [address] 10 Dec, 2013 [facility] [place] [facility] [address] [id number] [facility] [address] 10 Dec, 2013 [facility] [place] [facility] [address] [id number] [facility] [address] 18 Nov, 2013 [facility] [place] [facility] [address] [id number] [place] [address] 17 Nov, 2013 [facility] [place] [facility] [address] [id number] [place] [address] Nov, [facility] [place] [facility] [address] [id number] [facility] [place] [address] Nov, [facility] [place] [facility] [address] [id number] [place] [address] Nov, [facility] [place] [facility] [address] [id number] [place] [address] Oct, [facility] [place] [facility] [address] [id number] [place] [address] Oct, [facility] [place] [facility] [address] [id number] [place] [address] Oct, [facility] [place] [facility] [address] [id number] [place] [address] Sep, [facility] [place] [facility] [address] [id number] [place] [address] Sep, 2012 [facility] [place] [facility] [address] [id number] [place] [address] Sep, 2012 [facility] [place] [facility] [address] [id number] [place] [address] Sep, [facility] [place] [facility] [address] [id number] [place] [address] Aug, [facility] [place] [facility] [address] [id number] [place] [address] Aug, [facility] [place] [facility] [id number] [place] [address] Jul, [facility] [place] [facility] [address] [id number] [place] [address] Jul, [facility] [place] [facility] [address] [id number] [place] [address] Jul, [facility] [place] [facility] [address] [id number] [place] [address] Jul, [facility] [place] [facility] [address] [id number] [place] [address] Jul, [facility] [place] [facility] [address] [id number] [place] [address] 25 Jun, 2012 [facility] [place] [facility] [address] [id number] [place] [address] 25 Sep, 2012 [facility] [place] [facility] [address] [id number] [place] [address] 19 Sep, 2012 [facility] [place] [facility] [address] [id number] [place] [address] 18 Sep, 2012 [facility] [place] [facility] [address] [id number] [place] [address] 16 Sep, 2013 [facility] [place] [facility] [address] [id number] [facility] [place] [address] 12 Jun, 2013 [facility] [place] [facility] [address] [facility] [id number] [facility] [place] [address] 11 Jun, 2013 [facility] [place] [facility] [address] [id number] [facility] [place] [address] 30 May, 2013 [facility] [place] [facility] [address] [id number] [place] [address] May, [facility] [place] [facility] [address] [facility] [id number] [place] [address] Apr, [facility] [place] [facility] [address] [id number] [facility] [address] Apr, [facility] [place] [facility] [address] [id number] [place] [address] Apr, [facility] [place] [facility] [address] [id number] [place] [address] Mar, [facility] [place] [facility] [address] [id number] [facility] [place] [address] Mar, [facility] [place] [facility] [address] [id number] [facility] [address] February, [facility] [place] [facility] [address] [id number] [place] [address] February, [facility] [place] [address] [id number] [place] [address] February, [facility] [address] [id number] [facility] [address] February, [facility] [address] [id number] [place] [address] Jan, [facility] [address] [id number] [place] [address] 17 Jan, 2013 [facility] [address] [id number] [place] [address] 16 Jan, 2013 [facility] [address] [id number] [place] [address] 29 Dec, 2012 [facility] [address] [id number] [place] [address] Dec, [facility] [address] [id number] [place] [address] Dec, [facility] [address] [id number] [place] [address] Dec, [facility] [address] [id number] [place] [address] Nov, [facility] [address] [id number] [place] [address] Nov, [facility] [address] [id number] [place] [address] Oct, [facility] [address] [id number] [place] [address] Oct, [facility] [address] [id number] [place] [address] Oct, [facility] [address] [id number] [place] [address] Oct, [facility] [address] [id number] [place] [address] Aug, [facility] [address] [id number] [place] [address] Aug, [facility] [address] [id number] [place] [address] Jun, [facility] [address] [id number] [place] [address] May, [facility] [address] [id number] [place] [address] May, [facility] [address] [id number] [place] [address] Apr, [facility] [address] [id number] [place] [address] Apr, [facility] [address] [id number] [place] [address] 05 Apr, 2012 [facility] [address] [id number] [place] [address] Mar, [facility] [address] [id number] [place] [address] Mar, [facility] [address] [id number] [place] [address] 13 Mar, 2012 [facility] [address] [id number] [place] [address] Mar, [facility] [address] [id number] [place] [address] Mar, [facility] [address] [id number] [place] [address] February, [facility] [address] [id number] [place] [address] February, [facility] [address] [id number] [place] [address] February, [facility] [address] [id number] [place] [address] February, [facility] [address] [id number] [place] [address] February, [facility] [address] [id number] [place] [address] February, [facility] [address] [id number] [place] [address] February, [facility] [address] [id number] [place] [address] Jan, [facility] [address] [id number] [place] [address] 18 Jan, 2012 [facility] [address] [id number] [place] [address] 17 Jan, 2012 [facility] [address] [id number] [place] [address] 13 Jan, 2012 [facility] [address] [id number] [facility] [address] 10 Jan, 2012 [facility] [address] [id number] [facility] [place] [address] 04 Jan, 2012 [facility] [address] [id number] [facility] [address] 30 Dec, 2011 [facility] [address] [id number] [facility] [address] 24 Dec, 2011 [facility] [address] [facility] [id number] [facility] [place] [address] 20 Dec, 2011 [facility] [address] [id number] [facility] [address] 13 Dec, 2011 [facility] [address] [id number] [facility] [address] Dec, [facility] [address] [id number] [facility] [address] 28 Nov, 2011 [facility] [address] [id number] [facility] [place] [address] Nov, [facility] [address] [id number] [facility] [address] 25 Nov, 2011 [facility] [address] [id number] [place] [address] 14 Nov, 2011 [facility] [address] [id number] [facility] [place] [address] Nov, [facility] [address] [id number] [facility] [place] [address] Nov, [facility] [address] [id number] [place] [address] Oct, [facility] [address] [id number] [facility] [place] [address] Oct, [facility] [address] [id number] [place] [address] Oct, [facility] [address] [id number] [place] [address] Oct, [facility] [address] [id number] [place] [address] Oct, [facility] [address] [id number] [place] [address] Sep, [facility] [address] [id number] [place] [address] Sep, [facility] [address] [id number] [place] [address] 20 Sep, 2011 [facility] [address] [id number] [place] [address] 14 Sep, 2011 [facility] [address] [id number] [place] [address] 14 Sep, 2011 [facility] [address] [id number] [place] [address] Sep, [facility] [address] [id number] [place] [address] Sep, [facility] [address] [id number] [place] [address] Sep, [facility] [address] [id number] [place] [address] Sep, [facility] [address] [id number] [place] [address] Aug, [facility] [address] [id number] [place] [address] Aug, [facility] [address] [id number] [place] [address] Aug, [facility] [id number] [place] [address] Aug, [facility] [address] [id number] [place] [address] Aug, [facility] [address] [id number] [place] [address] Aug, [facility] [address] [id number] [place] [address] Aug, [facility] [address] [id number] [place] [address] 16 Aug, 2011 [facility] [address] [id number] [place] [address] Aug, [facility] [address] [id number] [place] [address] Aug, [facility] [address] [facility] [id number] [place] [address] Aug, [facility] [address] [id number] [place] [address] Aug, [facility] [address] [id number] [place] [address] Jul, [facility] [address] [id number] [place] [address] Jul, [facility] [address] [id number] [place] [address] 24 Jul, 2011 [facility] [address] [id number] [place] [address] Jul, [facility] [address] [id number] [place] [address] Jul, [facility] [address] [id number] [place] [address] Jul, [facility] [address] [id number] [place] [address] 18 Jul, 2011 [facility] [address] [id number] [place] [address] 11 Jul, 2011 [facility] [address] [id number] [place] [address] 10 Jul, 2011 [facility] [address] [id number] [place] [address] 10 Jul, 2011 [facility] [address] [id number] [place] [address] Nov, [facility] [address] [id number] [place] [address] Aug, [facility] [address] [id number] [place] [address] Aug, [facility] [address] [id number] [place] [address] Aug, [facility] [address] [id number] [place] [address] Aug, [facility] [address] [id number] [place] [address] Jul, IMMUNIZATIONS No Known Immunizations SOCIAL HISTORY Never Assessed REASON FOR VISIT PLAN OF CARE VITAL SIGNS MEDICATIONS Unknown Medications RESULTS No Results PROCEDURES Procedure Date Ordered Result Body Site THER/PROPH/DIAG INJ, SC/IM February 08, 2014 INSTRUCTIONS MEDICATIONS ADMINISTERED No Known [...] Suicide attempt by hanging 2015 Hospitalization History [facility] 01/30/2018-02/10/20 08 Hospitalization History [facility] 05/04/18-
--- OUTSIDE RECORDS SUMMARY | 2020-04-04 01:50 | XMS REPORT ---
Author Author Kaila Onofre Doctor Organization [facility] Address Unknown Phone Unavailable Care Team Providers Care Painting Supervisor Name Role Phone Migration, Doctor Unavailable Unavailable PROBLEMS Type Condition ICD9-CM Code [id number] Code Onset Dates Condition S tatus SNOMED Code Problem Paranoid schizophrenia F20.0 Active 49775492 Problem Borderline personality disorder F60.3 Active 32045104 Problem Schizoaffective disorder, depressive type F25.1 Active 24147442 Problem Schizoaffective disorder, unspecified F25.9 Active 38193540 Problem Attention deficit hyperactivity disorder (ADHD), inattentive type, 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 44318925 Problem Posttraumatic stress disorder F43.10 Active 99983888 Problem High risk medication use Z79.899 Activ e [id number] ALLERGIES No Information ENCOUNTERS Encounter Location Date Diagnosis [place] [address] [address] Nov, [place] [address] [address] Oct, Paranoid schizophrenia F20.0 ; Attention deficit hyperactivity disorder (ADHD), inattentive type, 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 ; Posttraumatic stress disorder F43.10 and Borderline personality disorder F60.3 [place] [address] [address] Oct, [place] [address] [address] Sep, Paranoid schizophrenia F20.0 ; Attention deficit hyperactivity disorder (ADHD), inattentive type, 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 ; Posttraumatic stress disorder F43.10 and Borderline personality disorder F60.3 [place] [address] [address] Aug, Paranoid schizophrenia F20.0 ; Attention deficit hyperactivity disorder (ADHD), inattentive type, 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 ; Posttraumatic stress disorder F43.10 and Borderline personality disorder F60.3 [facility] [address] [address] Aug, [facility] [address] [facility] [id number] [address] [place] [address] Aug, Acute bronchitis, unspecifie d organism J20.9 [facility] [address] [address] Aug, [facility] [address] [address] Aug, [facility] [address] [address] Jul, Paranoid schizophrenia F20.0 ; Attention deficit hyperactivity disorder (ADHD), inattentive type, 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 ; Posttraumatic stress disorder F43.10 and Borderline personality disorder F60.3 [facility] [address] [address] Jul, [facility] [address] [address] Jun, Paranoid schizophrenia F20.0 ; Other katherin g term (current) 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 Z79.899 ; Attention deficit hyperactivity disorder (ADHD), inattentive type, 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 ; Posttraumatic stress disorder F43.10 and Borderline personality disorder F60.3 [facility] [address] [address] Jun, Paranoid schizophrenia F20.0 ; Attention deficit hyperactivity disorder (ADHD), inattentive type, 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 ; Posttraumatic stress disorder F43.10 ; Borderline personality disorder F60.3 and Other usp (current) drug therapy Z79.899 [facility] [address] [address] Apr, Paranoid schizophrenia F20.0 ; Posttraum atic stress disorder F43.10 ; Attention deficit hyperactivity disorder (ADHD), inattentive type, 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 and Borderline personality disorder F60.3 [facility] [address] [address] Apr, Paranoid schizophrenia F20.0 [facility] [address] [address] Apr, Paranoid schizophrenia F20.0 ; Posttraum atic stress disorder F43.10 ; Attention deficit hyperactivity disorder (ADHD), inattentive type, 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 and Borderline personality disorder F60.3 [facility] [address] [address] Mar, Paranoid schizophrenia F20.0 [facility] [address] [address] Mar, Paranoid schizophrenia F20.0 ; Posttraum atic stress disorder F43.10 ; Attention deficit hyperactivity disorder (ADHD), inattentive type, 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 and Borderline personality disorder F60.3 [place] [address] [address] February, Paranoid schizophrenia F20.0 [facility] [address] [address] Jan, Paranoid schizophrenia F20.0 ; Posttraum atic stress disorder F43.10 ; Attention deficit hyperactivity disorder (ADHD), inattentive type, 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 and Borderline personality disorder F60.3 [facility] [address] [address] Dec, Paranoid schizophrenia F20.0 ; Posttraum atic stress disorder F43.10 ; Attention deficit hyperactivity disorder (ADHD), inattentive type, 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 and Borderline personality disorder F60.3 [facility] [address] [address] Dec, Paranoid schizophrenia F20.0 ; Posttraum atic stress disorder F43.10 ; Attention deficit hyperactivity disorder (ADHD), inattentive type, 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 and Borderline personality disorder F60.3 [facility] [address] [address] Oct, Paranoid schizophrenia F20.0 ; Posttraum atic stress disorder F43.10 ; Attention deficit hyperactivity disorder (ADHD), inattentive type, 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 and Borderline personality disorder F60.3 [facility] [address] [place] [id number] [place] [address] Oct, Paranoid schizophrenia F20.0 ; Posttraum atic stress disorder F43.10 ; Attention deficit hyperactivity disorder (ADHD), inattentive type, 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 and Borderline personality disorder F60.3 [facility] [address] [place] [id number] [place] [address] Aug, [facility] [address] [address] Aug, Paranoid schizophrenia F20.0 ; Posttraum atic stress disorder F43.10 ; Attention deficit hyperactivity disorder (ADHD), inattentive type, 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 and Borderline personality disorder F60.3 [facility] [address] [facility] [id number] [place] [address] Jul, Dry skin dermatitis L85.3 [facility] [address] [place] [id number] [place] [address] Jul, [facility] [address] [place] [id number] [place] [address] Jul, Paranoid schizophrenia F20.0 [facility] [address] [place] [id number] [place] [address] May, Paranoid schizophrenia F20.0 ; Posttraum atic stress disorder F43.10 ; Attention deficit hyperactivity disorder (ADHD), inattentive type, 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 and Borderline personality disorder F60.3 [facility] [address] [place] [id number] [place] [address] May, [facility] [address] [address] May, Paranoid schizophrenia F20.0 [facility] [address] [address] May, Paranoid schizophrenia F20.0 ; Posttraum atic stress disorder F43.10 ; Attention deficit hyperactivity disorder (ADHD), inattentive type, 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 and Borderline personality disorder F60.3 [facility] [address] [address] Apr, [facility] [address] [address] Apr, Paranoid schizophrenia F20.0 ; Posttraum atic stress disorder F43.10 ; Attention deficit hyperactivity disorder (ADHD), inattentive type, 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 and Borderline personality disorder F60.3 [facility] [address] [address] Apr, [facility] [address] [address] Apr, Schizoaffective disorder, depressive typ e F25.1 and Borderline personality disorder F60.3 [facility] [address] [address] Apr, Paranoid schizophrenia F20.0 ; Posttraum atic stress disorder F43.10 ; Attention deficit hyperactivity disorder (ADHD), inattentive type, 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 and Borderline personality disorder F60.3 [facility] [address] [address] Apr, [facility] [address] [address] Apr, Paranoid schizophrenia F20.0 ; Posttraum atic stress disorder F43.10 ; Attention deficit hyperactivity disorder (ADHD), inattentive type, 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 and Borderline personality disorder F60.3 [facility] [address] [address] Apr, [facility] [address] [address] Mar, Paranoid schizophrenia F20.0 [facility] [address] [place] [id number] Mar, [facility] [address] [address] Mar, Paranoid schizophrenia F20.0 ; Posttraum atic stress disorder F43.10 ; Attention deficit hyperactivity disorder (ADHD), inattentive type, 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 and Borderline personality disorder F60.3 [facility] [address] [address] February, Paranoid schizophrenia F20.0 [facility] [address] [address] February, Paranoid schizophrenia F20.0 ; Posttraum atic stress disorder F43.10 ; Attention deficit hyperactivity disorder (ADHD), inattentive type, 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 and Borderline personality disorder F60.3 [facility] [address] [address] February, Paranoid schizophrenia F20.0 ; Posttraum atic stress disorder F43.10 ; Attention deficit hyperactivity disorder (ADHD), inattentive type, 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 and Borderline personality disorder F60.3 [facility] [address] [address] February, [facility] [address] [address] February, Paranoid schizophrenia F20.0 [facility] [address] [address] February, Paranoid schizophrenia F20.0 [facility] [address] [address] February, Paranoid schizophrenia F20.0 ; Posttraum atic stress disorder F43.10 ; Attention deficit hyperactivity disorder (ADHD), inattentive type, 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 and Borderline personality disorder F60.3 [facility] [address] [address] Jan, Paranoid schizophrenia F20.0 ; Posttraum atic stress disorder F43.10 ; Attention deficit hyperactivity disorder (ADHD), inattentive type, 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 and Borderline personality disorder F60.3 [facility] [address] [address] Jan, Paranoid schizophrenia F20.0 [facility] [address] [address] Jan, Paranoid schizophrenia F20.0 [facility] [address] [address] Jan, Paranoid schizophrenia F20.0 ; Posttraum atic stress disorder F43.10 ; Attention deficit hyperactivity disorder (ADHD), inattentive type, 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 and Borderline personality disorder F60.3 [facility] [address] [address] Dec, [facility] [address] [address] Nov, Paranoid schizophrenia F20.0 ; Posttraum atic stress disorder F43.10 ; Attention deficit hyperactivity disorder (ADHD), inattentive type, 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 and Borderline personality disorder F60.3 [place] [address] [address] Nov, [facility] [address] [address] Oct, Paranoid schizophrenia F20.0 [facility] [address] [address] Oct, Paranoid schizophrenia F20.0 ; Posttraum atic stress disorder F43.10 ; Attention deficit hyperactivity disorder (ADHD), inattentive type, 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 ; Borderline personality disorder F60.3 and Other long term care phlebotomist (current) drug therapy Z79.899 [facility] [address] [address] Oct, [facility] [address] [address] Oct, [facility] [address] [address] Sep, [facility] [address] [place] [address] Sep, Paranoid schizophrenia F20.0 ; Posttraum atic stress disorder F43.10 ; Attention deficit hyperactivity disorder (ADHD), inattentive type, 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 and Borderline personality disorder F60.3 [facility] [address] [address] Sep, Paranoid schizophrenia F20.0 [facility] [address] [address] Aug, Paranoid schizophrenia F20.0 ; Posttraum atic stress disorder F43.10 ; Attention deficit hyperactivity disorder (ADHD), inattentive type, 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 and Borderline personality disorder F60.3 [facility] [address] [address] Aug, Paranoid schizophrenia F20.0 ; Posttraum atic stress disorder F43.10 ; Attention deficit hyperactivity disorder (ADHD), inattentive type, 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 and Borderline personality disorder F60.3 [facility] [address] [address] Aug, [facility] [address] [address] Jul, Paranoid schizophrenia F20.0 ; Posttraum atic stress disorder F43.10 ; Attention deficit hyperactivity disorder (ADHD), inattentive type, 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 and Borderline personality disorder F60.3 [facility] [address] [address] Jul, Paranoid schizophrenia F20.0 [facility] [address] [place] [id number] Jul, Paranoid schizophrenia F20.0 ; Posttraum atic stress disorder F43.10 ; Attention deficit hyperactivity disorder (ADHD), inattentive type, 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 and Borderline personality disorder F60.3 [facility] [address] [facility] [place] [address] Jun, Paranoid schizophrenia F20.0 ; Posttraum atic stress disorder F43.10 ; Attention deficit hyperactivity disorder (ADHD), inattentive type, 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 and Borderline personality disorder F60.3 [facility] [address] [place] [id number] [place] [address] May, Other usp (current) drug therapy Z 79.899 [facility] [address] [address] May, [facility] [address] [address] May, [facility] [address] [address] May, Attention deficit hyperactivity disorder (ADHD), inattentive type, 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 [facility] [address] [place] [id number] [place] [address] May, [facility] [address] [place] [id number] [place] [address] May, Attention deficit hyperactivity disorder (ADHD), inattentive type, 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 [facility] [address] [place] [id number] [place] [address] May, Paranoid schizophrenia F20.0 ; Posttraum atic stress disorder F43.10 ; Attention deficit hyperactivity disorder (ADHD), inattentive type, 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 and Other usp (current) drug therapy Z79.899 [facility] [address] [place] [id number] [place] [address] Apr, Paranoid schizophrenia F20.0 [facility] [address] [place] [id number] [place] [address] Apr, Paranoid schizophrenia F20.0 ; Posttraum atic stress disorder F43.10 and Attention deficit hyperactivity disorder (ADHD), inattentive type, 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 [facility] [id number] [place] [id number] February, [facility] [address] [place] [id number] February, Paranoid schizophrenia F20.0 ; Posttraum atic stress disorder F43.10 and Attention deficit hyperactivity disorder (ADHD), inattentive type, 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 [facility] [address] [address] February, Paranoid schizophrenia F20.0 ; Posttraum atic stress disorder F43.10 and Attention deficit hyperactivity disorder (ADHD), inattentive type, 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 [facility] [address] [place] [id number] Jan, Paranoid schizophrenia F20.0 ; Posttraum atic stress disorder F43.10 and Attention deficit hyperactivity disorder (ADHD), inattentive type, 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 [facility] [address] [id number] Dec, Dental examination Z01.20 [facility] [address] [id number] Nov, Dental examination Z01.20 [facility] [address] [id number] Nov, Dental examination Z01.20 [facility] [address] [id number] Nov, Dental caries K02.9 [facility] [address] [address] Nov, High risk medication use Z79.899 [facility] [address] [place] [id number] Nov, Paranoid schizophrenia F20.0 ; Posttraum atic stress disorder F43.10 ; Attention deficit hyperactivity disorder (ADHD), inattentive type, 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 and Borderline personality disorder in adult F60.3 [facility] [address] [id number] Oct, Dental caries K02.9 [facility] [address] [address] Sep, Paranoid schizophrenia F20.0 ; Posttraum atic stress disorder F43.10 and Attention deficit hyperactivity disorder (ADHD), inattentive type, 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 [facility] [address] [address] 16 Aug, 2016 Paranoid schizophrenia F20.0 ; Posttraum atic stress disorder F43.10 and Attention deficit hyperactivity disorder (ADHD), inattentive type, 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 [facility] [address] [facility] [id number] [address] [place] [address] Aug, Strep throat J02.0 and Cough R05 [facility] [address] [address] Aug, [facility] [address] [address] Jul, Paranoid schizophrenia F20.0 ; Posttraum atic stress disorder F43.10 and Attention deficit hyperactivity disorder (ADHD), inattentive type, 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 [facility] [address] [address] Jul, [facility] [address] [address] Jun, Paranoid schizophrenia F20.0 ; Posttraum atic stress disorder F43.10 and Attention deficit hyperactivity disorder (ADHD), inattentive type, 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 [facility] [address] [facility] [place] [id number] Jun, Dental examination Z01.20 [facility] [address] [address] Jun, [facility] [address] [address] May, Paranoid schizophrenia F20.0 [facility] [address] [address] May, Paranoid schizophrenia F20.0 ; Posttraum atic stress disorder F43.10 and Attention deficit hyperactivity disorder (ADHD), inattentive type, 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 [facility] [address] [address] May, [facility] [address] [place] [id number] [place] [address] May, Paranoid schizophrenia F20.0 [facility] [address] [place] [id number] [place] [address] May, [facility] [address] [address] May, Paranoid schizophrenia F20.0 [facility] [address] [address] May, Schizoaffective disorder, unspecified F2 5.9 [facility] [address] [address] May, Schizoaffective disorder, unspecified F2 5.9 [facility] [address] [place] [id number] [place] [address] May, [facility] [address] [address] May, Paranoid schizophrenia F20.0 [facility] [address] [address] May, Paranoid schizophrenia F20.0 ; Posttraum atic stress disorder F43.10 and Attention deficit hyperactivity disorder (ADHD), inattentive type, 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 [facility] [address] [place] [id number] [place] [address] Mar, [facility] [address] [address] Mar, Paranoid schizophrenia F20.0 ; Posttraum atic stress disorder F43.10 and Attention deficit hyperactivity disorder (ADHD), inattentive type, 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 [facility] [address] [id number] [place] [address] Mar, Paranoid schizophrenia F20.0 [facility] [address] [address] Mar, Paranoid schizophrenia F20.0 ; Attention deficit hyperactivity disorder (ADHD), inattentive type, 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 and Posttraumatic stress disorder F43.10 [facility] [address] [address] Mar, [facility] [address] [address] Mar, Paranoid schizophrenia F20.0 ; Posttraum atic stress disorder F43.10 and Attention deficit hyperactivity disorder (ADHD), inattentive type, 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 [facility] [address] [address] February, [facility] [address] [address] February, [facility] [address] [address] February, [facility] [address] [address] February, [facility] [address] [address] Jan, Paranoid schizophrenia F20.0 [facility] [address] [id number] Jan, Dental examination Z01.20 [facility] [address] [id number] Jan, Dental caries K02.9 [facility] [address] [id number] Jan, Dental examination Z01.20 [facility] [address] [id number] Dec, Encounter for dental examination Z01.20 [facility] [address] [address] Dec, Paranoid schizophrenia F20.0 [facility] [address] [facility] [place] [id number] Dec, Dental examination Z01.20 [facility] [address] [facility] [place] [address] Dec, [facility] [address] [address] Dec, Paranoid schizophrenia F20.0 ; Posttraum atic stress disorder F43.10 and Attention deficit hyperactivity disorder (ADHD), inattentive type, 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 [facility] [address] [address] Nov, Schizoaffective disorder, unspecified F2 5.9 [facility] [address] [address] Oct, Paranoid schizophrenia F20.0 [facility] [address] [address] Oct, [facility] [address] [address] Sep, Paranoid schizophrenia F20.0 ; Posttraum atic stress disorder F43.10 and Attention deficit hyperactivity disorder (ADHD), inattentive type, 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 [facility] [address] [address] Sep, [facility] [address] [address] Sep, Paranoid schizophrenia F20.0 ; Posttraum atic stress disorder F43.10 and Attention deficit hyperactivity disorder (ADHD), inattentive type, 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 [facility] [address] [address] Aug, Paranoid schizophrenia F20.0 [facility] [address] [address] Aug, [facility] [address] [address] Aug, Posttraumatic stress disorder F43.10 ; P aranoid schizophrenia F20.0 and Attention deficit hyperactivity disorder (ADHD), inattentive type, 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 [place] [address] [address] Jul, Bipolar disorder, unspecified F31.9 [place] [address] [address] Jul, [place] [address] [address] Jun, [place] [address] [address] Jun, Schizoaffective disorder, chronic 295.72 ; Posttraumatic stress disorder 309.81 and Attention deficit disorder of childhood without mention of hyperactivity 314.00 [place] [address] [address] May, [place] [address] [address] May, [facility] [address] [address] May, Schizoaffective disorder, chronic 295.72 ; Posttraumatic stress disorder 309.81 ; Attention deficit disorder of childhood without mention of hyperactivity 314.00 and Bipolar disorder, unspecified 296.80 [place] [address] [address] Apr, Schizoaffective disorder, chronic 295.72 [facility] [address] [address] Apr, [facility] [address] [address] Apr, Schizoaffective disorder, chronic 295.72 ; Posttraumatic stress disorder 309.81 and Attention deficit disorder of childhood without mention of hyperactivity 314.00 [facility] [address] [address] Mar, Disorganized schizophrenia, 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 [facility] [address] [facility] [place] [address] Mar, [facility] [address] [facility] [place] [address] Mar, [facility] [address] [facility] [place] [address] Mar, [facility] [address] [place] [id number] [place] [address] Mar, [facility] [address] [facility] [place] [address] February, Schizoaffective disorder, chronic 295.72 [facility] [address] [place] [id number] [place] [address] February, [facility] [address] [id number] [place] [address] February, Attention deficit disorder of childhood without mention of hyperactivity 314.00 ; Posttraumatic stress disorder 309.81 and Schizoaffective disorder, chronic 295.72 [facility] [address] [id number] [place] [address] 29 Jan, 2015 [facility] [id number] [place] [address] 14 Jan, 2015 [facility] [id number] [place] [address] Jan, [facility] [id number] [place] [address] Dec, [facility] [address] [id number] [place] [address] Dec, [facility] [address] [id number] [place] [address] Dec, [facility] [address] [id number] [place] [address] Dec, [facility] [address] [id number] [place] [address] Dec, [facility] [id number] [place] [address] Dec, [facility] [place] [facility] [address] [id number] [place] [address] Dec, [facility] [place] [facility] [address] [id number] [place] [address] Dec, [facility] [place] [facility] [address] [id number] [place] [address] Nov, [facility] [place] [facility] [address] [id number] [place] [address] Nov, [facility] [place] [facility] [address] [id number] [place] [address] Nov, [facility] [place] [facility] [address] [id number] [place] [address] Nov, [facility] [place] [facility] [address] [id number] [place] [address] Nov, [facility] [place] [facility] [address] [id number] [place] [address] Nov, [facility] [place] [facility] [address] [id number] [place] [address] Nov, [facility] [place] [facility] [address] [id number] [place] [address] Nov, [facility] [place] [facility] [address] [id number] [place] [address] Nov, [facility] [place] [facility] [address] [id number] [place] [address] Nov, [facility] [place] [facility] [address] [id number] [place] [address] Oct, [facility] [place] [facility] [address] [id number] [place] [address] Oct, [facility] [place] [facility] [address] [id number] [place] [address] Oct, [facility] [place] [facility] [address] [id number] [place] [address] 15 Oct, 2014 [facility] [place] [facility] [address] [id number] [place] [address] 15 Oct, 2014 [facility] [place] [facility] [address] [id number] [place] [address] Oct, [facility] [place] [facility] [address] [id number] [place] [address] Oct, [facility] [place] [facility] [address] [id number] [place] [address] 17 Sep, 2014 [facility] [place] [facility] [address] [id number] [place] [address] 17 Sep, 2014 [facility] [place] [facility] [address] [id number] [place] [address] 15 Sep, 2014 [facility] [place] [facility] [address] [id number] [place] [address] 15 Sep, 2014 [facility] [place] [facility] [address] [id number] [place] [address] Aug, [facility] [place] [facility] [address] [id number] [place] [address] Aug, [facility] [place] [facility] [address] [id number] [place] [address] Aug, [facility] [place] [facility] [address] [id number] [place] [address] 14 Aug, 2014 [facility] [place] [facility] [address] [id number] [place] [address] 14 Aug, 2014 [facility] [place] [facility] [address] [id number] [place] [address] Aug, [facility] [place] [facility] [address] [id number] [place] [address] 29 Jul, 2014 [facility] [place] [facility] [address] [id number] [place] [address] 29 Jul, 2014 [facility] [place] [facility] [address] [id number] [place] [address] 24 Jul, 2014 [facility] [place] [facility] [address] [id number] [place] [address] 24 Jul, 2014 [facility] [place] [facility] [address] [facility] [id number] [place] [address] 15 Jul, 2014 [facility] [place] [facility] [address] [id number] [place] [address] 15 Jul, 2014 [facility] [place] [facility] [address] [id number] [place] [address] 27 Jun, 2013 [facility] [place] [facility] [address] [id number] [place] [address] 27 Jun, 2013 [facility] [place] [facility] [address] [facility] [id number] [place] [address] 26 Jun, 2013 [facility] [place] [facility] [address] [id number] [place] [address] Jun, 2013 [facility] [place] [facility] [address] [id number] [place] [address] Jun, 2013 [facility] [place] [facility] [address] [id number] [place] [address] 26 Jun, 2013 [facility] [place] [facility] [address] [id number] [place] [address] 16 Jun, 2013 [facility] [place] [facility] [address] [id number] [place] [address] 16 Jun, 2013 [facility] [place] [facility] [address] [id number] [place] [address] 16 Jun, 2013 [facility] [place] [facility] [address] [id number] [place] [address] 16 Jun, 2013 [facility] [place] [facility] [address] [id number] [place] [address] Jun, [facility] [place] [facility] [address] [id number] [place] [address] May, [facility] [place] [facility] [address] [id number] [place] [address] May, [facility] [place] [facility] [address] [id number] [place] [address] May, [facility] [place] [facility] [address] [id number] [place] [address] May, [facility] [place] [facility] [address] [facility] [id number] [place] [address] May, [facility] [place] [facility] [address] [facility] [id number] [place] [address] May, [facility] [place] [facility] [address] [facility] [id number] [place] [address] May, [facility] [place] [facility] [address] [facility] [id number] [place] [address] May, [facility] [place] [facility] [address] [id number] [place] [address] May, [facility] [place] [facility] [address] [id number] [place] [address] May, [facility] [place] [facility] [address] [id number] [place] [address] Apr, [facility] [place] [facility] [address] [facility] [id number] [place] [address] Apr, [facility] [place] [facility] [address] [id number] [place] [address] Apr, [facility] [place] [facility] [address] [id number] [place] [address] Apr, [facility] [place] [facility] [address] [id number] [place] [address] Apr, [facility] [place] [facility] [address] [id number] [place] [address] Apr, [facility] [place] [facility] [address] [facility] [id number] [place] [address] Apr, [facility] [place] [facility] [address] [id number] [place] [address] Apr, [facility] [place] [facility] [address] [id number] [place] [address] Apr, [facility] [place] [facility] [address] [id number] [place] [address] Apr, [facility] [place] [facility] [address] [facility] [id number] [place] [address] Mar, [facility] [place] [facility] [address] [facility] [id number] [place] [address] Mar, [facility] [place] [facility] [address] [id number] [place] [address] Mar, [facility] [place] [facility] [address] [facility] [id number] [place] [address] Mar, [facility] [place] [facility] [address] [facility] [id number] [place] [address] Mar, [facility] [place] [facility] [address] [id number] [place] [address] Mar, [facility] [place] [facility] [address] [id number] [place] [address] Mar, [facility] [place] [facility] [address] [id number] [place] [address] Mar, [facility] [place] [facility] [address] [id number] [place] [address] 16 Mar, 2014 [facility] [place] [facility] [address] [id number] [place] [address] Mar, [facility] [place] [facility] [address] [id number] [place] [address] Mar, [facility] [place] [facility] [address] [id number] [place] [address] Mar, [facility] [place] [facility] [address] [facility] [id number] [place] [address] Mar, [facility] [place] [facility] [address] [id number] [place] [address] 10 Mar, 2014 [facility] [place] [facility] [address] [id number] [place] [address] 09 Mar, 2014 [facility] [place] [facility] [address] [id number] [place] [address] Mar, [facility] [place] [facility] [address] [id number] [place] [address] Mar, [facility] [place] [facility] [address] [facility] [id number] [place] [address] Mar, [facility] [place] [facility] [address] [facility] [id number] [place] [address] Mar, [facility] [place] [facility] [address] [id number] [place] [address] Mar, [facility] [place] [facility] [address] [id number] [place] [address] February, [facility] [place] [facility] [address] [facility] [id number] [place] [address] February, [facility] [place] [facility] [address] [id number] [place] [address] February, [facility] [place] [facility] [address] [id number] [place] [address] February, [facility] [place] [facility] [address] [id number] [place] [address] February, [facility] [place] [facility] [address] [id number] [place] [address] February, [facility] [place] [facility] [address] [id number] [place] [address] February, [facility] [place] [facility] [address] [id number] [place] [address] February, [facility] [place] [facility] [address] [id number] [place] [address] February, [facility] [place] [facility] [address] [facility] [id number] [place] [address] February, [facility] [place] [facility] [address] [id number] [place] [address] February, [facility] [place] [facility] [address] [id number] [place] [address] February, [facility] [place] [facility] [address] [id number] [place] [address] February, [facility] [place] [facility] [address] [id number] [place] [address] February, [facility] [place] [facility] [address] [id number] [place] [address] February, [facility] [place] [facility] [address] [id number] [place] [address] February, [facility] [place] [facility] [address] [id number] [place] [address] February, [facility] [place] [facility] [address] [id number] [place] [address] February, [facility] [place] [facility] [address] [id number] [place] [address] February, [facility] [place] [facility] [address] [id number] [place] [address] February, [facility] [place] [facility] [address] [id number] [place] [address] February, [facility] [place] [facility] [address] [id number] [place] [address] Jan, [facility] [place] [facility] [address] [id number] [place] [address] Jan, [facility] [place] [facility] [address] [id number] [place] [address] Jan, [facility] [place] [facility] [address] [id number] [place] [address] Jan, [facility] [place] [facility] [address] [id number] [place] [address] Jan, [facility] [place] [facility] [address] [id number] [place] [address] Jan, [facility] [place] [facility] [address] [id number] [place] [address] Jan, [facility] [place] [facility] [address] [id number] [place] [address] Jan, [facility] [place] [facility] [address] [id number] [place] [address] 21 Dec, 2013 [facility] [place] [facility] [address] [facility] [id number] [place] [address] 20 Dec, 2013 [facility] [place] [facility] [address] [facility] [id number] [place] [address] 20 Dec, 2013 [facility] [place] [facility] [address] [id number] [place] [address] 19 Dec, 2013 [facility] [place] [facility] [address] [id number] [place] [address] 19 Dec, 2013 [facility] [place] [facility] [address] [facility] [id number] [place] [address] 15 Dec, 2013 [facility] [place] [facility] [address] [id number] [place] [address] 15 Dec, 2013 [facility] [place] [facility] [address] [id number] [place] [address] 11 Dec, 2013 [facility] [place] [facility] [address] [id number] [place] [address] 10 Dec, 2013 [facility] [place] [facility] [address] [id number] [place] [address] 10 Dec, 2013 [facility] [place] [facility] [address] [id number] [place] [address] 18 Nov, 2013 [facility] [place] [facility] [address] [id number] [place] [address] 17 Nov, 2013 [facility] [place] [facility] [address] [id number] [place] [address] Nov, [facility] [place] [facility] [address] [id number] [place] [address] Nov, [facility] [place] [facility] [address] [id number] [place] [address] Nov, [facility] [place] [facility] [address] [id number] [place] [address] Oct, [facility] [place] [facility] [address] [id number] [place] [address] Oct, [facility] [place] [facility] [address] [id number] [place] [address] Oct, [facility] [place] [facility] [address] [id number] [place] [address] Sep, [facility] [place] [facility] [address] [id number] [place] [address] Sep, 2012 [facility] [place] [facility] [address] [id number] [place] [address] Sep, 2012 [facility] [place] [facility] [address] [id number] [place] [address] Sep, [facility] [place] [facility] [address] [id number] [place] [address] Aug, [facility] [place] [facility] [address] [id number] [place] [address] Aug, [facility] [place] [facility] [address] [id number] [place] [address] Jul, [facility] [place] [facility] [address] [id number] [place] [address] Jul, [facility] [place] [facility] [address] [id number] [place] [address] Jul, [facility] [place] [facility] [address] [id number] [place] [address] Jul, [facility] [place] [facility] [address] [id number] [place] [address] Jul, [facility] [place] [facility] [address] [id number] [place] [address] 25 Jun, 2012 [facility] [place] [facility] [address] [id number] [place] [address] 25 Sep, 2012 [facility] [place] [facility] [address] [id number] [place] [address] 19 Sep, 2012 [facility] [place] [facility] [address] [id number] [place] [address] 18 Sep, 2012 [facility] [place] [facility] [address] [id number] [place] [address] 16 Sep, 2013 [facility] [place] [facility] [address] [id number] [place] [address] 12 Jun, 2013 [facility] [place] [facility] [address] [facility] [id number] [place] [address] 11 Jun, 2013 [facility] [place] [facility] [address] [id number] [place] [address] 30 May, 2013 [facility] [place] [facility] [address] [id number] [place] [address] May, [facility] [place] [facility] [address] [facility] [id number] [place] [address] Apr, [facility] [place] [facility] [address] [id number] [place] [address] Apr, [facility] [place] [facility] [address] [id number] [place] [address] Apr, [facility] [place] [facility] [address] [id number] [place] [address] Mar, [facility] [place] [facility] [address] [id number] [place] [address] Mar, [facility] [place] [facility] [address] [id number] [place] [address] February, [facility] [place] [facility] [address] [id number] [place] [address] February, [facility] [place] [facility] [address] [id number] [place] [address] February, [facility] [place] [facility] [address] [id number] [place] [address] February, [facility] [place] [facility] [address] [id number] [place] [address] Jan, [facility] [place] [facility] [address] [id number] [place] [address] 17 Jan, 2013 [facility] [place] [facility] [address] [id number] [place] [address] 16 Jan, 2013 [facility] [place] [facility] [address] [id number] [place] [address] 29 Dec, 2012 [facility] [place] [facility] [address] [id number] [place] [address] Dec, [facility] [place] [facility] [address] [id number] [place] [address] Dec, [facility] [place] [facility] [address] [id number] [place] [address] Dec, [facility] [place] [facility] [address] [id number] [place] [address] Nov, [facility] [place] [facility] [address] [id number] [place] [address] Nov, [facility] [place] [facility] [address] [id number] [place] [address] Oct, [facility] [place] [facility] [address] [id number] [place] [address] Oct, [facility] [place] [facility] [address] [id number] [place] [address] Oct, [facility] [place] [facility] [address] [id number] [place] [address] Oct, [facility] [place] [facility] [address] [id number] [place] [address] Aug, [facility] [place] [facility] [address] [id number] [place] [address] Aug, [facility] [place] [facility] [address] [id number] [place] [address] Jun, [facility] [place] [facility] [address] [id number] [place] [address] May, [facility] [place] [facility] [address] [id number] [place] [address] May, [facility] [place] [facility] [address] [id number] [place] [address] Apr, [facility] [place] [facility] [address] [id number] [place] [address] Apr, [facility] [place] [facility] [address] [id number] [place] [address] 05 Apr, 2012 [facility] [place] [facility] [address] [id number] [place] [address] Mar, [facility] [address] [id number] [place] [address] Mar, [facility] [address] [facility] [id number] [place] [address] 13 Mar, 2012 [facility] [address] [facility] [id number] [place] [address] Mar, [facility] [address] [id number] [place] [address] Mar, [facility] [address] [facility] [id number] [place] [address] February, [facility] [address] [facility] [address] [id number] [place] [address] February, [facility] [address] [facility] [id number] [place] [address] February, [facility] [address] [id number] [place] [address] February, [facility] [address] [facility] [address] [id number] [place] [address] February, [facility] [address] [id number] [place] [address] February, [facility] [address] [facility] [id number] [place] [address] February, [facility] [address] [facility] [id number] [place] [address] Jan, [facility] [address] [id number] [place] [address] 18 Jan, 2012 [facility] [address] [facility] [address] [id number] [place] [address] 17 Jan, 2012 [facility] [address] [facility] [address] [id number] [place] [address] 13 Jan, 2012 [facility] [id number] [place] [address] 10 Jan, 2012 [facility] [address] [facility] [address] [id number] [place] [address] 04 Jan, 2012 [facility] [address] [id number] [place] [address] 30 Dec, 2011 [facility] [address] [facility] [id number] [place] [address] 24 Dec, 2011 [facility] [address] [facility] [id number] [place] [address] 20 Dec, 2011 [facility] [address] [id number] [place] [address] 13 Dec, 2011 [facility] [address] [id number] [place] [address] Dec, [facility] [address] [id number] [place] [address] 28 Nov, 2011 [facility] [address] [id number] [place] [address] Nov, [facility] [address] [id number] [place] [address] 25 Nov, 2011 [facility] [address] [id number] [place] [address] 14 Nov, 2011 [facility] [address] [id number] [place] [address] Nov, [facility] [address] [id number] [place] [address] Nov, [facility] [address] [id number] [place] [address] Oct, [facility] [address] [id number] [place] [address] Oct, [facility] [address] [id number] [place] [address] Oct, [facility] [address] [id number] [place] [address] Oct, [facility] [address] [facility] [id number] [place] [address] Oct, [facility] [address] [id number] [place] [address] Sep, [facility] [address] [id number] [place] [address] Sep, [facility] [address] [id number] [place] [address] 20 Sep, 2011 [facility] [address] [facility] [id number] [place] [address] 14 Sep, 2011 [facility] [address] [id number] [place] [address] 14 Sep, 2011 [facility] [address] [id number] [place] [address] Sep, [facility] [address] [id number] [place] [address] Sep, [facility] [address] [id number] [place] [address] Sep, [facility] [address] [id number] [place] [address] Sep, [facility] [address] [facility] [id number] [place] [address] Aug, [facility] [address] [id number] [place] [address] Aug, [facility] [address] [id number] [place] [address] Aug, [facility] [id number] [place] [address] Aug, [facility] [address] [facility] [id number] [place] [address] Aug, [facility] [address] [id number] [place] [address] Aug, [facility] [address] [id number] [place] [address] Aug, [facility] [address] [facility] [id number] [place] [address] 16 Aug, 2011 [facility] [id number] [place] [address] Aug, [facility] [id number] [place] [address] Aug, [facility] [address] [facility] [id number] [place] [address] Aug, [facility] [id number] [place] [address] Aug, [facility] [id number] [place] [address] Jul, [facility] [id number] [place] [address] Jul, [facility] [id number] [place] [address] 24 Jul, 2011 [facility] [id number] [place] [address] Jul, [facility] [id number] [place] [address] Jul, [facility] [id number] [place] [address] Jul, [facility] [id number] [place] [address] 18 Jul, 2011 [facility] [id number] [place] [address] 11 Jul, 2011 [facility] [id number] [place] [address] 10 Jul, 2011 [facility] [id number] [place] [address] 10 Jul, 2011 [facility] [id number] [place] [address] Nov, [facility] [id number] [place] [address] Aug, [facility] [id number] [place] [address] Aug, [facility] [id number] [place] [address] Aug, [facility] [id number] [place] [address] Aug, [facility] [id number] [place] [address] Jul, IMMUNIZATIONS No Known Immunizations SOCIAL HISTORY Never Assessed REASON FOR VISIT PLAN OF CARE VITAL SIGNS Weight 201 lbs 2014-01-31 Temperature 97.9 degrees Fahrenheit 2014-01-31 Heart Rate 76 bpm 2014-01-31 Respiratory Rate 24 2014-01-31 Blood pressure systolic 112 mmHg 2014-01-31 Blood pressure diastolic 84 mmHg 2014-01-31 MEDICATIONS Unknown Medications RESULTS No Results PROCEDURES [...] attempt by hanging 2015 Hospitalization History [facility] 01/30/2018-02/10/20 08 Hospitalization History [facility] 05/04/18-
--- OUTSIDE RECORDS SUMMARY | 2020-04-04 01:50 | XMS REPORT ---
Author Author Kaila Roca Organization [facility] Address [address] [place] [address] Care Team Providers Care Filling Hauler Weaving Name Role Phone BRYAN Roca Unavailable PROBLEMS Type Condition ICD9-CM Code TUL71-YH Code Onset Dates Condition S tatus SNOMED Code Problem Paranoid schizophrenia F20.0 Active 42913915 Problem Borderline personality disorder F60.3 Active 87569514 Problem Schizoaffective disorder, depressive type F25.1 Active 73621131 Problem Schizoaffective disorder, unspecified F25.9 Active 29839078 Problem Attention deficit hyperactivity disorder (ADHD), inattentive type, 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 20073548 Problem Posttraumatic stress disorder F43.10 Active 76075493 Problem High risk medication use Z79.899 Activ e [id number] ALLERGIES No Information ENCOUNTERS Encounter Location Date Diagnosis [place] [address] [address] Nov, [place] [address] [address] Oct, Paranoid schizophrenia F20.0 ; Attention deficit hyperactivity disorder (ADHD), inattentive type, 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 ; Posttraumatic stress disorder F43.10 and Borderline personality disorder F60.3 [facility] [address] [address] Oct, [place] [address] [address] Sep, Paranoid schizophrenia F20.0 ; Attention deficit hyperactivity disorder (ADHD), inattentive type, 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 ; Posttraumatic stress disorder F43.10 and Borderline personality disorder F60.3 [facility] [address] [address] Aug, Paranoid schizophrenia F20.0 ; Attention deficit hyperactivity disorder (ADHD), inattentive type, 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 ; Posttraumatic stress disorder F43.10 and Borderline personality disorder F60.3 [facility] [address] [address] Aug, [facility] [address] [facility] [id number] [address] [place] [address] Aug, Acute bronchitis, unspecifie d organism J20.9 [facility] [address] [address] Aug, [facility] [address] [address] Aug, [facility] [address] [address] Jul, Paranoid schizophrenia F20.0 ; Attention deficit hyperactivity disorder (ADHD), inattentive type, 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 ; Posttraumatic stress disorder F43.10 and Borderline personality disorder F60.3 [facility] [address] [address] Jul, [facility] [address] [address] Jun, Paranoid schizophrenia F20.0 ; Other katherin g term (current) 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 Z79.899 ; Attention deficit hyperactivity disorder (ADHD), inattentive type, 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 ; Posttraumatic stress disorder F43.10 and Borderline personality disorder F60.3 [facility] [address] [address] Jun, Paranoid schizophrenia F20.0 ; Attention deficit hyperactivity disorder (ADHD), inattentive type, 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 ; Posttraumatic stress disorder F43.10 ; Borderline personality disorder F60.3 and Other prison (current) drug therapy Z79.899 [facility] [address] [address] Apr, Paranoid schizophrenia F20.0 ; Posttraum atic stress disorder F43.10 ; Attention deficit hyperactivity disorder (ADHD), inattentive type, 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 and Borderline personality disorder F60.3 [facility] [address] [address] Apr, Paranoid schizophrenia F20.0 [facility] [address] [address] Apr, Paranoid schizophrenia F20.0 ; Posttraum atic stress disorder F43.10 ; Attention deficit hyperactivity disorder (ADHD), inattentive type, 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 and Borderline personality disorder F60.3 [facility] [address] [address] Mar, Paranoid schizophrenia F20.0 [facility] [address] [address] Mar, Paranoid schizophrenia F20.0 ; Posttraum atic stress disorder F43.10 ; Attention deficit hyperactivity disorder (ADHD), inattentive type, 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 and Borderline personality disorder F60.3 [facility] [address] [address] February, Paranoid schizophrenia F20.0 [facility] [address] [address] Jan, Paranoid schizophrenia F20.0 ; Posttraum atic stress disorder F43.10 ; Attention deficit hyperactivity disorder (ADHD), inattentive type, 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 and Borderline personality disorder F60.3 [facility] [address] [address] Dec, Paranoid schizophrenia F20.0 ; Posttraum atic stress disorder F43.10 ; Attention deficit hyperactivity disorder (ADHD), inattentive type, 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 and Borderline personality disorder F60.3 [facility] [address] [address] Dec, Paranoid schizophrenia F20.0 ; Posttraum atic stress disorder F43.10 ; Attention deficit hyperactivity disorder (ADHD), inattentive type, 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 and Borderline personality disorder F60.3 [facility] [address] [address] Oct, Paranoid schizophrenia F20.0 ; Posttraum atic stress disorder F43.10 ; Attention deficit hyperactivity disorder (ADHD), inattentive type, 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 and Borderline personality disorder F60.3 [facility] [address] [address] Oct, Paranoid schizophrenia F20.0 ; Posttraum atic stress disorder F43.10 ; Attention deficit hyperactivity disorder (ADHD), inattentive type, 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 and Borderline personality disorder F60.3 [facility] [address] [address] Aug, [facility] [address] [address] Aug, Paranoid schizophrenia F20.0 ; Posttraum atic stress disorder F43.10 ; Attention deficit hyperactivity disorder (ADHD), inattentive type, 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 and Borderline personality disorder F60.3 [facility] [address] [facility] [id number] [address] [place] [address] Jul, Dry skin dermatitis L85.3 [facility] [address] [place] [id number] [place] [address] Jul, [facility] [address] [address] Jul, Paranoid schizophrenia F20.0 [facility] [address] [place] [id number] [place] [address] May, Paranoid schizophrenia F20.0 ; Posttraum atic stress disorder F43.10 ; Attention deficit hyperactivity disorder (ADHD), inattentive type, 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 and Borderline personality disorder F60.3 [facility] [address] [place] [id number] [place] [address] May, [facility] [address] [address] May, Paranoid schizophrenia F20.0 [facility] [address] [address] May, Paranoid schizophrenia F20.0 ; Posttraum atic stress disorder F43.10 ; Attention deficit hyperactivity disorder (ADHD), inattentive type, 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 and Borderline personality disorder F60.3 [facility] [address] [address] Apr, [facility] [address] [address] Apr, Paranoid schizophrenia F20.0 ; Posttraum atic stress disorder F43.10 ; Attention deficit hyperactivity disorder (ADHD), inattentive type, 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 and Borderline personality disorder F60.3 [facility] [address] [address] Apr, [facility] [address] [address] Apr, Schizoaffective disorder, depressive typ e F25.1 and Borderline personality disorder F60.3 [facility] [address] [address] Apr, Paranoid schizophrenia F20.0 ; Posttraum atic stress disorder F43.10 ; Attention deficit hyperactivity disorder (ADHD), inattentive type, 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 and Borderline personality disorder F60.3 [facility] [address] [address] Apr, [facility] [address] [address] Apr, Paranoid schizophrenia F20.0 ; Posttraum atic stress disorder F43.10 ; Attention deficit hyperactivity disorder (ADHD), inattentive type, 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 and Borderline personality disorder F60.3 [facility] [address] [address] Apr, [facility] [address] [address] Mar, Paranoid schizophrenia F20.0 [facility] [address] [address] Mar, [facility] [address] [address] Mar, Paranoid schizophrenia F20.0 ; Posttraum atic stress disorder F43.10 ; Attention deficit hyperactivity disorder (ADHD), inattentive type, 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 and Borderline personality disorder F60.3 [facility] [address] [address] February, Paranoid schizophrenia F20.0 [facility] [address] [address] February, Paranoid schizophrenia F20.0 ; Posttraum atic stress disorder F43.10 ; Attention deficit hyperactivity disorder (ADHD), inattentive type, 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 and Borderline personality disorder F60.3 [place] [address] [address] February, Paranoid schizophrenia F20.0 ; Posttraum atic stress disorder F43.10 ; Attention deficit hyperactivity disorder (ADHD), inattentive type, 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 and Borderline personality disorder F60.3 [facility] [address] [address] February, [facility] [address] [address] February, Paranoid schizophrenia F20.0 [facility] [address] [address] February, Paranoid schizophrenia F20.0 [facility] [address] [address] February, Paranoid schizophrenia F20.0 ; Posttraum atic stress disorder F43.10 ; Attention deficit hyperactivity disorder (ADHD), inattentive type, 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 and Borderline personality disorder F60.3 [facility] [address] [address] Jan, Paranoid schizophrenia F20.0 ; Posttraum atic stress disorder F43.10 ; Attention deficit hyperactivity disorder (ADHD), inattentive type, 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 and Borderline personality disorder F60.3 [facility] [address] [place] [id number] [place] [address] Jan, Paranoid schizophrenia F20.0 [facility] [address] [address] Jan, Paranoid schizophrenia F20.0 [facility] [address] [address] Jan, Paranoid schizophrenia F20.0 ; Posttraum atic stress disorder F43.10 ; Attention deficit hyperactivity disorder (ADHD), inattentive type, 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 and Borderline personality disorder F60.3 [facility] [address] [address] Dec, [facility] [address] [address] Nov, Paranoid schizophrenia F20.0 ; Posttraum atic stress disorder F43.10 ; Attention deficit hyperactivity disorder (ADHD), inattentive type, 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 and Borderline personality disorder F60.3 [facility] [address] [place] [id number] [place] [address] Nov, [facility] [address] [address] Oct, Paranoid schizophrenia F20.0 [facility] [address] [address] Oct, Paranoid schizophrenia F20.0 ; Posttraum atic stress disorder F43.10 ; Attention deficit hyperactivity disorder (ADHD), inattentive type, 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 ; Borderline personality disorder F60.3 and Other prison (current) drug therapy Z79.899 [facility] [address] [address] Oct, [facility] [address] [place] [id number] [place] [address] Oct, [facility] [address] [address] Sep, [facility] [address] [address] Sep, Paranoid schizophrenia F20.0 ; Posttraum atic stress disorder F43.10 ; Attention deficit hyperactivity disorder (ADHD), inattentive type, 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 and Borderline personality disorder F60.3 [facility] [address] [address] Sep, Paranoid schizophrenia F20.0 [facility] [address] [address] Aug, Paranoid schizophrenia F20.0 ; Posttraum atic stress disorder F43.10 ; Attention deficit hyperactivity disorder (ADHD), inattentive type, 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 and Borderline personality disorder F60.3 [facility] [address] [address] Aug, Paranoid schizophrenia F20.0 ; Posttraum atic stress disorder F43.10 ; Attention deficit hyperactivity disorder (ADHD), inattentive type, 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 and Borderline personality disorder F60.3 [facility] [address] [address] Aug, [facility] [address] [address] Jul, Paranoid schizophrenia F20.0 ; Posttraum atic stress disorder F43.10 ; Attention deficit hyperactivity disorder (ADHD), inattentive type, 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 and Borderline personality disorder F60.3 [facility] [address] [address] Jul, Paranoid schizophrenia F20.0 [facility] [address] [address] Jul, Paranoid schizophrenia F20.0 ; Posttraum atic stress disorder F43.10 ; Attention deficit hyperactivity disorder (ADHD), inattentive type, 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 and Borderline personality disorder F60.3 [facility] [address] [place] [id number] [place] [address] Jun, Paranoid schizophrenia F20.0 ; Posttraum atic stress disorder F43.10 ; Attention deficit hyperactivity disorder (ADHD), inattentive type, 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 and Borderline personality disorder F60.3 [facility] [address] [address] May, 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 Z 79.899 [facility] [address] [address] May, [facility] [address] [address] May, [facility] [address] [address] May, Attention deficit hyperactivity disorder (ADHD), inattentive type, 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 [facility] [address] [place] [id number] [place] [address] May, [facility] [address] [address] May, Attention deficit hyperactivity disorder (ADHD), inattentive type, 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 [facility] [address] [address] May, Paranoid schizophrenia F20.0 ; Posttraum atic stress disorder F43.10 ; Attention deficit hyperactivity disorder (ADHD), inattentive type, 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 and Other prison (current) drug therapy Z79.899 [facility] [address] [place] [id number] [place] [address] Apr, Paranoid schizophrenia F20.0 [facility] [address] [place] [id number] [place] [address] Apr, Paranoid schizophrenia F20.0 ; Posttraum atic stress disorder F43.10 and Attention deficit hyperactivity disorder (ADHD), inattentive type, 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 [facility] [address] [address] February, [facility] [address] [place] [id number] February, Paranoid schizophrenia F20.0 ; Posttraum atic stress disorder F43.10 and Attention deficit hyperactivity disorder (ADHD), inattentive type, 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 [facility] [address] [address] February, Paranoid schizophrenia F20.0 ; Posttraum atic stress disorder F43.10 and Attention deficit hyperactivity disorder (ADHD), inattentive type, 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 [facility] [address] [address] Jan, Paranoid schizophrenia F20.0 ; Posttraum atic stress disorder F43.10 and Attention deficit hyperactivity disorder (ADHD), inattentive type, 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 [facility] [address] [id number] Dec, Dental examination Z01.20 [facility] [address] [id number] Nov, Dental examination Z01.20 [facility] [address] [id number] Nov, Dental examination Z01.20 [facility] [address] [id number] Nov, Dental caries K02.9 [facility] [address] [address] 13 Nov, 2016 High risk medication use Z79.899 [facility] [address] [address] Nov, Paranoid schizophrenia F20.0 ; Posttraum atic stress disorder F43.10 ; Attention deficit hyperactivity disorder (ADHD), inattentive type, 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 and Borderline personality disorder in adult F60.3 [facility] [address] [id number] Oct, Dental caries K02.9 [facility] [address] [address] 05 Sep, 2016 Paranoid schizophrenia F20.0 ; Posttraum atic stress disorder F43.10 and Attention deficit hyperactivity disorder (ADHD), inattentive type, 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 [facility] [address] [address] 16 Aug, 2016 Paranoid schizophrenia F20.0 ; Posttraum atic stress disorder F43.10 and Attention deficit hyperactivity disorder (ADHD), inattentive type, 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 [facility] [address] [facility] [id number] [place] [address] Aug, Strep throat J02.0 and Cough R05 [facility] [address] [address] Aug, [facility] [address] [address] 24 Jul, 2016 Paranoid schizophrenia F20.0 ; Posttraum atic stress disorder F43.10 and Attention deficit hyperactivity disorder (ADHD), inattentive type, 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 [facility] [address] [address] Jul, [facility] [address] [address] 28 Jun, 2016 Paranoid schizophrenia F20.0 ; Posttraum atic stress disorder F43.10 and Attention deficit hyperactivity disorder (ADHD), inattentive type, 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 [facility] [address] [id number] Jun, Dental examination Z01.20 [facility] [address] [address] Jun, [facility] [address] [address] May, Paranoid schizophrenia F20.0 [facility] [address] [facility] [place] [address] May, Paranoid schizophrenia F20.0 ; Posttraum atic stress disorder F43.10 and Attention deficit hyperactivity disorder (ADHD), inattentive type, 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 [facility] [address] [place] [id number] [place] [address] May, [facility] [address] [address] May, Paranoid schizophrenia F20.0 [facility] [address] [place] [id number] [place] [address] May, [facility] [address] [address] May, Paranoid schizophrenia F20.0 [facility] [address] [place] [id number] [place] [address] May, Schizoaffective disorder, unspecified F2 5.9 [facility] [address] [place] [id number] [place] [address] May, Schizoaffective disorder, unspecified F2 5.9 [facility] [address] [address] May, [facility] [address] [address] May, Paranoid schizophrenia F20.0 [facility] [address] [place] [id number] [place] [address] May, Paranoid schizophrenia F20.0 ; Posttraum atic stress disorder F43.10 and Attention deficit hyperactivity disorder (ADHD), inattentive type, 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 [facility] [address] [place] [id number] [place] [address] Mar, [facility] [address] [place] [id number] [place] [address] Mar, Paranoid schizophrenia F20.0 ; Posttraum atic stress disorder F43.10 and Attention deficit hyperactivity disorder (ADHD), inattentive type, 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 [facility] [address] [address] Mar, Paranoid schizophrenia F20.0 [facility] [address] [address] Mar, Paranoid schizophrenia F20.0 ; Attention deficit hyperactivity disorder (ADHD), inattentive type, 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 and Posttraumatic stress disorder F43.10 [facility] [address] [address] Mar, [facility] [address] [address] Mar, Paranoid schizophrenia F20.0 ; Posttraum atic stress disorder F43.10 and Attention deficit hyperactivity disorder (ADHD), inattentive type, 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 [facility] [address] [address] February, [facility] [address] [address] February, [facility] [address] [address] February, [facility] [address] [address] February, [facility] [address] [address] Jan, Paranoid schizophrenia F20.0 [facility] [address] [id number] Jan, Dental examination Z01.20 [facility] [address] [id number] Jan, Dental caries K02.9 [facility] [address] [id number] Jan, Dental examination Z01.20 [facility] [address] [id number] Dec, Encounter for dental examination Z01.20 [facility] [address] [facility] [place] [address] Dec, Paranoid schizophrenia F20.0 [facility] [address] [facility] [place] [id number] Dec, Dental examination Z01.20 [facility] [address] [facility] [place] [address] 07 Dec, 2015 [facility] [address] [address] Dec, Paranoid schizophrenia F20.0 ; Posttraum atic stress disorder F43.10 and Attention deficit hyperactivity disorder (ADHD), inattentive type, 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 [facility] [address] [address] Nov, Schizoaffective disorder, unspecified F2 5.9 [facility] [address] [address] Oct, Paranoid schizophrenia F20.0 [facility] [address] [address] Oct, [facility] [address] [address] Sep, Paranoid schizophrenia F20.0 ; Posttraum atic stress disorder F43.10 and Attention deficit hyperactivity disorder (ADHD), inattentive type, 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 [facility] [address] [address] Sep, [facility] [address] [address] Sep, Paranoid schizophrenia F20.0 ; Posttraum atic stress disorder F43.10 and Attention deficit hyperactivity disorder (ADHD), inattentive type, 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 [facility] [address] [address] Aug, Paranoid schizophrenia F20.0 [facility] [address] [address] Aug, [facility] [address] [address] Aug, Posttraumatic stress disorder F43.10 ; P aranoid schizophrenia F20.0 and Attention deficit hyperactivity disorder (ADHD), inattentive type, 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 [facility] [address] [address] Jul, Bipolar disorder, unspecified F31.9 [facility] [address] [address] Jul, [facility] [address] [address] Jun, [facility] [address] [address] Jun, Schizoaffective disorder, chronic 295.72 ; Posttraumatic stress disorder 309.81 and Attention deficit disorder of childhood without mention of hyperactivity 314.00 [facility] [address] [address] May, [facility] [address] [address] May, [facility] [address] [address] May, Schizoaffective disorder, chronic 295.72 ; Posttraumatic stress disorder 309.81 ; Attention deficit disorder of childhood without mention of hyperactivity 314.00 and Bipolar disorder, unspecified 296.80 [facility] [address] [address] Apr, Schizoaffective disorder, chronic 295.72 [facility] [address] [address] Apr, [facility] [address] [address] Apr, Schizoaffective disorder, chronic 295.72 ; Posttraumatic stress disorder 309.81 and Attention deficit disorder of childhood without mention of hyperactivity 314.00 [facility] [address] [id number] [place] [address] Mar, Disorganized schizophrenia, 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 [facility] [address] [id number] [place] [address] Mar, [facility] [address] [place] [id number] [place] [address] Mar, [facility] [address] [place] [id number] [place] [address] Mar, [facility] [address] [place] [id number] [place] [address] Mar, [facility] [address] [address] [id number] [place] [address] February, Schizoaffective disorder, chronic 295.72 [facility] [id number] [place] [address] February, [facility] [address] [id number] [place] [address] February, Attention deficit disorder of childhood without mention of hyperactivity 314.00 ; Posttraumatic stress disorder 309.81 and Schizoaffective disorder, chronic 295.72 [facility] [id number] [place] [address] 29 Jan, 2015 [facility] [id number] [place] [address] 14 Jan, 2015 [facility] [id number] [place] [address] Jan, [facility] [id number] [place] [address] Dec, [facility] [id number] [place] [address] Dec, [facility] [id number] [place] [address] Dec, [facility] [id number] [place] [address] Dec, [facility] [id number] [place] [address] 10 Dec, 2014 [facility] [place] [facility] [address] [id number] [place] [address] Dec, [facility] [place] [facility] [address] [id number] [place] [address] Dec, [facility] [place] [facility] [address] [id number] [place] [address] Dec, [facility] [place] [facility] [address] [id number] [place] [address] Nov, [facility] [place] [facility] [address] [id number] [place] [address] Nov, [facility] [place] [facility] [address] [id number] [place] [address] Nov, [facility] [place] [facility] [address] [id number] [place] [address] Nov, [facility] [place] [facility] [address] [id number] [place] [address] Nov, [facility] [place] [facility] [address] [id number] [place] [address] Nov, [facility] [place] [facility] [address] [id number] [place] [address] Nov, [facility] [place] [facility] [address] [id number] [place] [address] Nov, [facility] [place] [facility] [address] [id number] [place] [address] Nov, [facility] [place] [facility] [address] [id number] [place] [address] Nov, [facility] [place] [facility] [address] [id number] [place] [address] Oct, [facility] [place] [facility] [address] [id number] [place] [address] Oct, [facility] [place] [facility] [address] [id number] [place] [address] Oct, [facility] [place] [facility] [address] [id number] [place] [address] Oct, [facility] [place] [facility] [address] [id number] [place] [address] 15 Oct, 2014 [facility] [place] [facility] [address] [id number] [place] [address] Oct, [facility] [place] [facility] [address] [id number] [place] [address] Oct, [facility] [place] [facility] [address] [id number] [place] [address] Sep, [facility] [place] [facility] [address] [id number] [place] [address] 17 Sep, 2014 [facility] [place] [facility] [address] [id number] [place] [address] 15 Sep, 2014 [facility] [place] [facility] [address] [id number] [place] [address] 15 Sep, 2014 [facility] [place] [facility] [address] [id number] [place] [address] Aug, [facility] [place] [facility] [address] [id number] [place] [address] 20 Aug, 2014 [facility] [place] [facility] [address] [id number] [place] [address] 14 Aug, 2014 [facility] [place] [facility] [address] [id number] [place] [address] 14 Aug, 2014 [facility] [place] [facility] [address] [id number] [place] [address] 14 Aug, 2014 [facility] [place] [facility] [address] [id number] [place] [address] 14 Aug, 2014 [facility] [place] [facility] [address] [id number] [place] [address] 29 Jul, 2014 [facility] [place] [facility] [address] [id number] [place] [address] Jul, [facility] [place] [facility] [address] [id number] [place] [address] 24 Jul, 2013 [facility] [place] [facility] [address] [facility] [id number] [place] [address] 24 Jul, 2014 [facility] [place] [facility] [address] [id number] [place] [address] 15 Jul, 2014 [facility] [place] [facility] [address] [id number] [place] [address] 15 Jul, 2014 [facility] [place] [facility] [address] [id number] [place] [address] 27 Jun, 2013 [facility] [place] [facility] [address] [facility] [id number] [place] [address] 27 Jun, 2013 [facility] [place] [facility] [address] [id number] [place] [address] 26 Jun, 2013 [facility] [place] [facility] [address] [id number] [place] [address] 26 Jun, 2013 [facility] [place] [facility] [address] [id number] [place] [address] 26 Jun, 2013 [facility] [place] [facility] [address] [id number] [place] [address] 26 Jun, 2013 [facility] [place] [facility] [address] [id number] [place] [address] 16 Jun, 2013 [facility] [place] [facility] [address] [id number] [place] [address] 16 Jun, 2013 [facility] [place] [facility] [address] [id number] [place] [address] 16 Jun, 2013 [facility] [place] [facility] [address] [id number] [place] [address] 16 Jun, 2013 [facility] [place] [facility] [address] [id number] [place] [address] 04 Jun, 2013 [facility] [place] [facility] [address] [id number] [place] [address] May, [facility] [place] [facility] [address] [id number] [place] [address] May, [facility] [place] [facility] [address] [id number] [place] [address] May, [facility] [place] [facility] [address] [facility] [id number] [place] [address] May, [facility] [place] [facility] [address] [facility] [id number] [place] [address] May, [facility] [place] [facility] [address] [facility] [id number] [place] [address] May, [facility] [place] [facility] [address] [facility] [id number] [place] [address] May, [facility] [place] [facility] [address] [id number] [place] [address] May, [facility] [place] [facility] [address] [id number] [place] [address] May, [facility] [place] [facility] [address] [id number] [place] [address] May, [facility] [place] [facility] [address] [id number] [place] [address] Apr, [facility] [place] [facility] [address] [id number] [place] [address] Apr, [facility] [place] [facility] [address] [id number] [place] [address] Apr, [facility] [place] [facility] [address] [id number] [place] [address] Apr, [facility] [place] [facility] [address] [id number] [place] [address] Apr, [facility] [place] [facility] [address] [facility] [id number] [place] [address] Apr, [facility] [place] [facility] [address] [facility] [id number] [place] [address] Apr, [facility] [place] [facility] [address] [id number] [place] [address] Apr, [facility] [place] [facility] [address] [id number] [place] [address] 15 Apr, 2014 [facility] [place] [facility] [address] [facility] [id number] [place] [address] Apr, [facility] [place] [facility] [address] [facility] [id number] [place] [address] Mar, [facility] [place] [facility] [address] [id number] [place] [address] Mar, [facility] [place] [facility] [address] [facility] [id number] [place] [address] Mar, [facility] [place] [facility] [address] [facility] [id number] [place] [address] 24 Mar, 2014 [facility] [place] [facility] [address] [id number] [place] [address] Mar, [facility] [place] [facility] [address] [id number] [place] [address] 18 Mar, 2014 [facility] [place] [facility] [address] [id number] [place] [address] 18 Mar, 2014 [facility] [place] [facility] [address] [id number] [place] [address] 16 Mar, 2014 [facility] [place] [facility] [address] [id number] [place] [address] 16 Mar, 2014 [facility] [place] [facility] [address] [id number] [place] [address] 13 Mar, 2014 [facility] [place] [facility] [address] [id number] [place] [address] 13 Mar, 2014 [facility] [place] [facility] [address] [facility] [id number] [place] [address] 11 Mar, 2014 [facility] [place] [facility] [address] [id number] [place] [address] 11 Mar, 2014 [facility] [place] [facility] [address] [id number] [place] [address] 10 Mar, 2014 [facility] [place] [facility] [address] [id number] [place] [address] 09 Mar, 2014 [facility] [place] [facility] [address] [id number] [place] [address] Mar, [facility] [place] [facility] [address] [facility] [id number] [place] [address] Mar, [facility] [place] [facility] [address] [id number] [place] [address] Mar, [facility] [place] [facility] [address] [id number] [place] [address] Mar, [facility] [place] [facility] [address] [id number] [place] [address] Mar, [facility] [place] [facility] [address] [facility] [id number] [place] [address] February, [facility] [place] [facility] [address] [id number] [place] [address] February, [facility] [place] [facility] [address] [id number] [place] [address] February, [facility] [place] [facility] [address] [id number] [place] [address] February, [facility] [place] [facility] [address] [id number] [place] [address] February, [facility] [place] [facility] [address] [id number] [place] [address] February, [facility] [place] [facility] [address] [id number] [place] [address] February, [facility] [place] [facility] [address] [id number] [place] [address] February, [facility] [place] [facility] [address] [id number] [place] [address] February, [facility] [place] [facility] [address] [id number] [place] [address] February, [facility] [place] [facility] [address] [id number] [place] [address] February, [facility] [place] [facility] [address] [id number] [place] [address] February, [facility] [place] [facility] [address] [id number] [place] [address] February, [facility] [place] [facility] [address] [id number] [place] [address] February, [facility] [place] [facility] [address] [id number] [place] [address] February, [facility] [place] [facility] [address] [id number] [place] [address] February, [facility] [place] [facility] [address] [id number] [place] [address] February, [facility] [place] [facility] [address] [id number] [place] [address] February, [facility] [place] [facility] [address] [id number] [place] [address] February, [facility] [place] [facility] [address] [id number] [place] [address] February, [facility] [place] [facility] [address] [id number] [place] [address] February, [facility] [place] [facility] [address] [id number] [place] [address] Jan, [facility] [place] [facility] [address] [id number] [place] [address] Jan, [facility] [place] [facility] [address] [id number] [place] [address] Jan, [facility] [place] [facility] [address] [id number] [place] [address] Jan, [facility] [place] [facility] [address] [id number] [place] [address] Jan, [facility] [place] [facility] [address] [id number] [place] [address] Jan, [facility] [place] [facility] [address] [id number] [place] [address] Jan, [facility] [place] [facility] [address] [id number] [place] [address] 10 Jan, 2014 [facility] [place] [facility] [address] [facility] [id number] [place] [address] 21 Dec, 2013 [facility] [place] [facility] [address] [id number] [place] [address] 20 Dec, 2013 [facility] [place] [facility] [address] [id number] [place] [address] 20 Dec, 2013 [facility] [place] [facility] [address] [id number] [place] [address] 19 Dec, 2013 [facility] [place] [facility] [address] [facility] [id number] [place] [address] 19 Dec, 2013 [facility] [place] [facility] [address] [id number] [place] [address] 15 Dec, 2013 [facility] [place] [facility] [address] [id number] [place] [address] 15 Dec, 2013 [facility] [place] [facility] [address] [id number] [place] [address] 11 Dec, 2013 [facility] [place] [facility] [address] [id number] [place] [address] 10 Dec, 2013 [facility] [place] [facility] [address] [id number] [place] [address] 10 Dec, 2013 [facility] [place] [facility] [address] [id number] [place] [address] 18 Nov, 2013 [facility] [place] [facility] [address] [id number] [place] [address] 17 Nov, 2013 [facility] [place] [facility] [address] [facility] [id number] [place] [address] 17 Nov, 2013 [facility] [place] [facility] [address] [id number] [place] [address] 05 Nov, 2013 [facility] [place] [facility] [address] [id number] [place] [address] 05 Nov, 2013 [facility] [place] [facility] [address] [id number] [place] [address] Oct, [facility] [place] [facility] [address] [id number] [place] [address] Oct, [facility] [place] [facility] [address] [id number] [place] [address] Oct, [facility] [place] [facility] [address] [id number] [place] [address] Sep, [facility] [place] [facility] [address] [id number] [place] [address] Sep, [facility] [place] [facility] [address] [id number] [place] [address] Sep, [facility] [place] [facility] [address] [id number] [place] [address] Sep, [facility] [place] [facility] [address] [id number] [place] [address] Aug, [facility] [place] [facility] [id number] [place] [address] Aug, [facility] [place] [facility] [address] [id number] [place] [address] Jul, [facility] [place] [facility] [address] [id number] [place] [address] Jul, [facility] [place] [facility] [address] [id number] [place] [address] Jul, [facility] [place] [facility] [address] [id number] [place] [address] Jul, [facility] [place] [facility] [address] [id number] [place] [address] Jul, [facility] [place] [facility] [address] [id number] [place] [address] 25 Jun, 2012 [facility] [place] [facility] [id number] [place] [address] 25 Jun, 2012 [facility] [place] [facility] [address] [id number] [place] [address] 19 Sep, 2012 [facility] [place] [facility] [address] [id number] [place] [address] 18 Sep, 2013 [facility] [place] [facility] [address] [id number] [place] [address] 16 Jun, 2013 [facility] [place] [facility] [address] [facility] [id number] [place] [address] 12 Jun, 2013 [facility] [place] [facility] [address] [id number] [place] [address] 11 Jun, 2013 [facility] [place] [facility] [address] [id number] [place] [address] 30 May, 2013 [facility] [place] [facility] [address] [facility] [id number] [place] [address] May, [facility] [place] [facility] [address] [id number] [place] [address] Apr, [facility] [place] [facility] [address] [id number] [place] [address] Apr, [facility] [place] [facility] [address] [id number] [place] [address] Apr, [facility] [place] [facility] [address] [id number] [place] [address] Mar, [facility] [place] [facility] [address] [id number] [place] [address] Mar, [facility] [place] [facility] [address] [id number] [place] [address] February, [facility] [place] [facility] [address] [id number] [place] [address] February, [facility] [place] [facility] [address] [id number] [place] [address] February, [facility] [place] [facility] [address] [id number] [place] [address] February, [facility] [place] [facility] [address] [id number] [place] [address] Jan, [facility] [place] [facility] [address] [id number] [place] [address] Jan, [facility] [place] [facility] [address] [id number] [place] [address] 16 Jan, 2013 [facility] [place] [facility] [address] [id number] [place] [address] 29 Dec, 2012 [facility] [place] [facility] [address] [id number] [place] [address] Dec, [facility] [place] [facility] [address] [id number] [place] [address] Dec, [facility] [place] [facility] [address] [id number] [place] [address] Dec, [facility] [place] [facility] [address] [id number] [place] [address] Nov, [facility] [place] [facility] [address] [id number] [place] [address] Nov, [facility] [place] [facility] [address] [id number] [place] [address] Oct, [facility] [place] [facility] [address] [id number] [place] [address] Oct, [facility] [place] [facility] [address] [id number] [place] [address] Oct, [facility] [place] [facility] [address] [id number] [place] [address] Oct, [facility] [place] [facility] [address] [id number] [place] [address] Aug, [facility] [place] [facility] [address] [id number] [place] [address] Aug, [facility] [place] [facility] [address] [id number] [place] [address] Jun, [facility] [place] [facility] [id number] [place] [address] May, [facility] [place] [facility] [address] [id number] [place] [address] May, [facility] [place] [facility] [address] [id number] [place] [address] Apr, [facility] [place] [facility] [address] [id number] [place] [address] Apr, [facility] [place] [facility] [address] [id number] [place] [address] Apr, [facility] [place] [facility] [address] [id number] [place] [address] Mar, [facility] [place] [facility] [address] [id number] [place] [address] Mar, [facility] [place] [facility] [address] [id number] [place] [address] Mar, [facility] [place] [facility] [address] [id number] [place] [address] Mar, [facility] [place] [facility] [address] [id number] [place] [address] Mar, [facility] [place] [facility] [address] [id number] [place] [address] February, [facility] [place] [facility] [address] [id number] [place] [address] February, [facility] [place] [facility] [address] [id number] [place] [address] February, [facility] [place] [facility] [address] [id number] [place] [address] February, [facility] [place] [facility] [address] [id number] [place] [address] February, [facility] [place] [facility] [address] [id number] [place] [address] February, [facility] [place] [facility] [address] [id number] [place] [address] February, [facility] [place] [facility] [address] [id number] [place] [address] Jan, [facility] [place] [facility] [address] [id number] [place] [address] 18 Jan, 2012 [facility] [place] [facility] [address] [id number] [place] [address] 17 Jan, 2012 [facility] [address] [id number] [facility] [address] 13 Jan, 2012 [facility] [address] [id number] [facility] [address] 10 Jan, 2012 [facility] [address] [id number] [place] [address] 04 Jan, 2012 [facility] [address] [id number] [place] [address] 30 Dec, 2011 [facility] [address] [id number] [place] [address] 24 Dec, 2011 [facility] [address] [id number] [place] [address] 20 Dec, 2011 [facility] [address] [id number] [place] [address] 13 Dec, 2011 [facility] [address] [id number] [place] [address] 06 Dec, 2011 [facility] [address] [id number] [place] [address] 28 Nov, 2011 [facility] [address] [id number] [place] [address] 27 Nov, 2011 [facility] [address] [id number] [place] [address] 25 Nov, 2011 [facility] [address] [id number] [place] [address] 14 Nov, 2011 [facility] [address] [id number] [place] [address] 10 Nov, 2011 [facility] [address] [id number] [place] [address] Nov, [facility] [address] [id number] [place] [address] 26 Oct, 2011 [facility] [address] [id number] [place] [address] Oct, [facility] [address] [id number] [place] [address] 09 Oct, 2011 [facility] [address] [id number] [place] [address] Oct, [facility] [address] [id number] [place] [address] Oct, [facility] [address] [id number] [place] [address] Sep, [facility] [address] [id number] [place] [address] Sep, [facility] [address] [id number] [place] [address] Sep, [facility] [address] [id number] [place] [address] 14 Sep, 2011 [facility] [address] [id number] [place] [address] 14 Sep, 2011 [facility] [address] [id number] [place] [address] Sep, [facility] [address] [id number] [place] [address] Sep, [facility] [address] [id number] [place] [address] Sep, [facility] [address] [id number] [place] [address] Sep, [facility] [address] [id number] [place] [address] Aug, [facility] [address] [id number] [place] [address] Aug, [facility] [address] [id number] [place] [address] Aug, [facility] [address] [id number] [place] [address] Aug, [facility] [address] [id number] [place] [address] Aug, [facility] [address] [id number] [place] [address] Aug, [facility] [address] [id number] [place] [address] Aug, [facility] [address] [id number] [place] [address] Aug, [facility] [address] [id number] [place] [address] Aug, [facility] [address] [id number] [place] [address] Aug, [facility] [address] [id number] [place] [address] Aug, [facility] [address] [id number] [place] [address] Aug, [facility] [address] [id number] [place] [address] Jul, [facility] [address] [id number] [place] [address] Jul, [facility] [address] [id number] [place] [address] 24 Jul, 2011 [facility] [address] [id number] [place] [address] Jul, [facility] [address] [id number] [place] [address] Jul, [facility] [address] [id number] [place] [address] Jul, [facility] [address] [id number] [place] [address] 18 Jul, 2011 [facility] [address] [id number] [place] [address] 11 Jul, 2011 [facility] [address] [id number] [place] [address] 10 Jul, 2011 [facility] [address] [id number] [place] [address] Jul, [facility] [address] [id number] [place] [address] Nov, [facility] [address] [id number] [place] [address] Aug, [facility] [address] [id number] [place] [address] Aug, [facility] [address] [id number] [place] [address] Aug, [facility] [address] [id number] [place] [address] Aug, [facility] [address] [id number] [place] [address] Jul, IMMUNIZATIONS No Known Immunizations SOCIAL HISTORY [...] by hanging 2015 Hospitalization History [facility] 01/30/2018-02/10/20 08 Hospitalization History [facility] 05/04/18-
--- OUTSIDE RECORDS SUMMARY | 2020-04-04 01:51 | XMS REPORT ---
Author Author Kaila Onofre Doctor Organization [facility] Address Unknown Phone Unavailable Care Team Providers Care Hot Top Liner Name Role Phone Migration, Doctor Unavailable Unavailable PROBLEMS Type Condition ICD9-CM Code [id number] Code Onset Dates Condition S tatus SNOMED Code Problem Paranoid schizophrenia F20.0 Active 90631888 Problem Borderline personality disorder F60.3 Active 35746050 Problem Schizoaffective disorder, depressive type F25.1 Active 27378524 Problem Schizoaffective disorder, unspecified F25.9 Active 20911973 Problem Attention deficit hyperactivity disorder (ADHD), inattentive type, 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 [id number] [place] [address] Aug, [facility] [address] [address] Aug, 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 [address] [address] Jul, 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 [address] [address] Apr, Paranoid schizophrenia F20.0 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 [address] [address] Mar, Paranoid schizophrenia F20.0 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 [address] [place] [id number] [place] [address] Aug, 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 [address] [facility] [place] [address] Jul, [facility] [address] [address] Jul, Paranoid schizophrenia F20.0 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 [address] [place] [address] [id number] [place] [address] May, [facility] [address] [address] May, Paranoid schizophrenia F20.0 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 [address] [address] Apr, 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 [address] [address] Apr, [facility] [address] [address] Apr, Schizoaffective disorder, depressive typ e F25.1 and Borderline personality disorder F60.3 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 [address] [address] Apr, 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 [address] [address] Apr, [facility] [address] [address] Mar, Paranoid schizophrenia F20.0 [facility] [address] [address] Mar, 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 [address] [address] February, Paranoid schizophrenia F20.0 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 [address] [address] February, [facility] [address] [address] February, Paranoid schizophrenia F20.0 [facility] [address] [address] February, Paranoid schizophrenia F20.0 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 [address] [address] Jan, Paranoid schizophrenia F20.0 [facility] [address] [address] Jan, Paranoid schizophrenia F20.0 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 [address] [address] Dec, 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 [address] [address] Nov, [facility] [address] [address] Oct, Paranoid schizophrenia F20.0 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 [address] [address] Oct, [facility] [address] [address] Oct, [facility] [address] [address] Sep, 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 [address] [address] Sep, Paranoid schizophrenia F20.0 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 [address] [address] Aug, 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 [address] [address] Jul, Paranoid schizophrenia F20.0 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 [address] [place] [id number] [place] [address] May, [place] [facility] drug therapy Z 79.899 [facility] [address] [address] May, [facility] [address] [address] May, 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 [address] [address] May, 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 [address] [address] Apr, Paranoid schizophrenia F20.0 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 [address] [address] February, 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 [address] [address] Nov, High risk medication use Z79.899 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 [address] [address] Aug, 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 [address] [address] Jul, 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 [address] [address] Jun, [facility] [address] [address] May, Paranoid schizophrenia F20.0 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 [address] [id number] [place] [address] May, [facility] [address] [id number] [place] [address] May, Paranoid schizophrenia F20.0 [facility] [address] [id number] [place] [address] May, [facility] [address] [id number] [place] [address] May, Paranoid schizophrenia F20.0 [facility] [address] [id number] [place] [address] May, Schizoaffective disorder, unspecified F2 5.9 [facility] [id number] [place] [address] May, Schizoaffective disorder, unspecified F2 5.9 [facility] [id number] [place] [address] May, [facility] [address] [id number] [place] [address] May, Paranoid schizophrenia F20.0 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 [id number] [place] [address] Mar, 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 [id number] [place] [address] Mar, Paranoid schizophrenia F20.0 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 [address] [address] Mar, 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 [address] [address] February, [facility] [address] [address] February, [facility] [address] [address] February, [facility] [address] [address] February, [facility] [address] [address] Jan, Paranoid schizophrenia F20.0 [facility] [address] [id number] Jan, Dental examination Z01.20 [facility] [address] [id number] Jan, Dental caries K02.9 [facility] [address] [id number] Jan, Dental examination Z01.20 [facility] [address] [id number] Dec, Encounter for dental examination Z01.20 [facility] [address] [address] Dec, Paranoid schizophrenia F20.0 [facility] [address] [id number] Dec, Dental examination Z01.20 [facility] [address] [address] Dec, 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 [address] [address] Nov, Schizoaffective disorder, unspecified F2 5.9 [facility] [address] [address] Oct, Paranoid schizophrenia F20.0 [facility] [address] [address] Oct, 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 [address] [address] Sep, 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 [address] [address] Aug, Paranoid schizophrenia F20.0 [facility] [address] [address] Aug, 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 [address] [address] Jun, [place] [address] [address] Jun, Schizoaffective disorder, chronic 295.72 ; Posttraumatic stress disorder 309.81 and Attention deficit disorder of childhood without mention of hyperactivity 314.00 [place] [address] [address] May, [place] [address] [address] May, [place] [address] [address] May, Schizoaffective disorder, chronic 295.72 ; Posttraumatic stress disorder 309.81 ; Attention deficit disorder of childhood without mention of hyperactivity 314.00 and Bipolar disorder, unspecified 296.80 [place] [address] [address] Apr, Schizoaffective disorder, chronic 295.72 [place] [address] [address] Apr, [place] [address] [address] Apr, Schizoaffective disorder, chronic 295.72 ; Posttraumatic stress disorder 309.81 and Attention deficit disorder of childhood without mention of hyperactivity 314.00 [place] [address] [address] Mar, Disorganized schizophrenia, 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 [address] [id number] [place] [address] Mar, [facility] [address] [id number] [place] [address] Mar, [facility] [address] [id number] [place] [address] Mar, [facility] [id number] [place] [address] February, Schizoaffective disorder, chronic 295.72 [facility] [address] [id number] [place] [address] February, [facility] [address] [id number] [place] [address] February, Attention deficit disorder of childhood without mention of hyperactivity 314.00 ; Posttraumatic stress disorder 309.81 and Schizoaffective disorder, chronic 295.72 [facility] [address] [id number] [place] [address] Jan, [facility] [address] [id number] [place] [address] Jan, [facility] [address] [id number] [place] [address] Jan, [facility] [address] [id number] [place] [address] Dec, [facility] [address] [id number] [place] [address] Dec, [facility] [address] [id number] [place] [address] Dec, [facility] [address] [id number] [place] [address] Dec, [facility] [address] [id number] [place] [address] Dec, [facility] [address] [id number] [place] [address] Dec, [facility] [address] [id number] [place] [address] Dec, [facility] [address] [id number] [place] [address] Dec, [facility] [address] [id number] [place] [address] Nov, 2014 [facility] [address] [id number] [place] [address] Nov, 2014 [facility] [address] [id number] [place] [address] Nov, 2014 [facility] [address] [id number] [place] [address] Nov, 2014 [facility] [address] [id number] [place] [address] Nov, 2014 [facility] [address] [id number] [place] [address] Nov, 2014 [facility] [address] [id number] [place] [address] Nov, [facility] [address] [id number] [place] [address] Nov, [facility] [address] [id number] [place] [address] Nov, [facility] [address] [id number] [place] [address] Nov, [facility] [address] [id number] [place] [address] Oct, [facility] [address] [id number] [place] [address] Oct, [facility] [address] [id number] [place] [address] Oct, [facility] [address] [id number] [place] [address] Oct, [facility] [address] [id number] [place] [address] 15 Oct, 2014 [facility] [address] [id number] [place] [address] Oct, [facility] [address] [id number] [place] [address] Oct, [facility] [address] [id number] [place] [address] 17 Sep, 2014 [facility] [address] [id number] [place] [address] 17 Sep, 2014 [facility] [address] [id number] [place] [address] Sep, [facility] [address] [id number] [place] [address] Sep, [facility] [address] [id number] [place] [address] Aug, [facility] [address] [id number] [place] [address] Aug, [facility] [address] [id number] [place] [address] Aug, [facility] [address] [id number] [place] [address] Aug, [facility] [address] [id number] [place] [address] Aug, [facility] [address] [id number] [place] [address] Aug, [facility] [address] [id number] [place] [address] Jul, [facility] [address] [id number] [place] [address] 29 Jul, 2014 [facility] [address] [id number] [place] [address] Jul, [facility] [address] [id number] [place] [address] Jul, [facility] [address] [id number] [place] [address] 15 Jul, 2013 [facility] [address] [id number] [place] [address] 15 Jul, 2014 [facility] [address] [id number] [place] [address] 27 Jun, 2013 [facility] [address] [id number] [place] [address] 27 Jun, 2013 [facility] [address] [id number] [place] [address] 26 Jun, 2013 [facility] [address] [id number] [place] [address] 26 Jun, 2013 [facility] [address] [id number] [place] [address] Jun, 2013 [facility] [address] [id number] [place] [address] 26 Jun, 2013 [facility] [address] [id number] [place] [address] 16 Jun, 2013 [facility] [address] [id number] [place] [address] 16 Jun, 2013 [facility] [address] [id number] [place] [address] 16 Jun, 2013 [facility] [address] [id number] [place] [address] 16 Jun, 2013 [facility] [address] [id number] [place] [address] 04 Jun, 2013 [facility] [address] [id number] [place] [address] May, [facility] [address] [id number] [place] [address] May, [facility] [address] [id number] [place] [address] May, [facility] [address] [id number] [place] [address] May, [facility] [address] [id number] [place] [address] May, [facility] [address] [id number] [place] [address] May, [facility] [address] [id number] [place] [address] May, [facility] [address] [id number] [place] [address] May, [facility] [address] [id number] [place] [address] May, [facility] [address] [id number] [place] [address] May, [facility] [address] [id number] [place] [address] Apr, [facility] [address] [id number] [place] [address] Apr, [facility] [address] [id number] [place] [address] Apr, [facility] [address] [id number] [place] [address] Apr, [facility] [address] [id number] [place] [address] Apr, [facility] [address] [id number] [place] [address] Apr, [facility] [address] [id number] [place] [address] Apr, [facility] [address] [id number] [place] [address] Apr, [facility] [address] [id number] [place] [address] Apr, [facility] [address] [id number] [place] [address] Apr, [facility] [address] [id number] [place] [address] Mar, [facility] [address] [id number] [place] [address] Mar, [facility] [address] [id number] [place] [address] 25 Mar, 2014 [facility] [address] [id number] [place] [address] 24 Mar, 2014 [facility] [address] [id number] [place] [address] 20 Mar, 2014 [facility] [address] [id number] [place] [address] 18 Mar, 2014 [facility] [address] [id number] [place] [address] 18 Mar, 2014 [facility] [address] [id number] [place] [address] 16 Mar, 2014 [facility] [address] [id number] [place] [address] 16 Mar, 2014 [facility] [address] [id number] [place] [address] Mar, [facility] [address] [id number] [place] [address] Mar, [facility] [address] [id number] [place] [address] Mar, [facility] [address] [id number] [place] [address] Mar, [facility] [address] [id number] [place] [address] 10 Mar, 2014 [facility] [address] [id number] [place] [address] 09 Mar, 2014 [facility] [address] [id number] [place] [address] 09 Mar, 2014 [facility] [address] [id number] [place] [address] Mar, [facility] [address] [id number] [place] [address] Mar, [facility] [address] [id number] [place] [address] Mar, [facility] [address] [id number] [place] [address] Mar, [facility] [address] [id number] [place] [address] February, [facility] [address] [id number] [place] [address] February, [facility] [address] [id number] [place] [address] February, [facility] [address] [id number] [place] [address] February, [facility] [address] [id number] [place] [address] February, [facility] [address] [id number] [place] [address] February, [facility] [address] [id number] [place] [address] February, [facility] [address] [id number] [place] [address] February, [facility] [address] [id number] [place] [address] February, [facility] [address] [id number] [place] [address] February, [facility] [address] [id number] [place] [address] February, [facility] [address] [id number] [place] [address] February, [facility] [address] [id number] [place] [address] February, [facility] [address] [id number] [place] [address] February, [facility] [address] [id number] [place] [address] February, [facility] [address] [id number] [place] [address] February, [facility] [address] [id number] [place] [address] February, [facility] [address] [id number] [place] [address] February, [facility] [address] [id number] [place] [address] February, [facility] [address] [id number] [place] [address] February, [facility] [address] [id number] [place] [address] February, [facility] [address] [id number] [place] [address] Jan, [facility] [address] [id number] [place] [address] Jan, [facility] [address] [id number] [place] [address] Jan, [facility] [address] [id number] [place] [address] Jan, [facility] [address] [id number] [place] [address] Jan, [facility] [address] [id number] [place] [address] Jan, [facility] [address] [id number] [place] [address] Jan, [facility] [address] [id number] [place] [address] Jan, [facility] [address] [id number] [place] [address] Dec, [facility] [address] [id number] [place] [address] 20 Dec, 2013 [facility] [address] [id number] [place] [address] 20 Dec, 2013 [facility] [address] [id number] [place] [address] 19 Dec, 2013 [facility] [address] [id number] [place] [address] 19 Dec, 2013 [facility] [address] [id number] [place] [address] 15 Dec, 2013 [facility] [address] [id number] [place] [address] 15 Dec, 2013 [facility] [address] [id number] [place] [address] 11 Dec, 2013 [facility] [address] [id number] [place] [address] 10 Dec, 2013 [facility] [address] [id number] [place] [address] 10 Dec, 2013 [facility] [address] [id number] [place] [address] 18 Nov, 2013 [facility] [address] [id number] [place] [address] 17 Nov, 2013 [facility] [address] [id number] [place] [address] 17 Nov, 2013 [facility] [address] [id number] [place] [address] Nov, [facility] [address] [id number] [place] [address] 05 Nov, 2013 [facility] [address] [id number] [place] [address] Oct, [facility] [address] [id number] [place] [address] Oct, [facility] [address] [id number] [place] [address] 16 Oct, 2013 [facility] [address] [id number] [place] [address] Sep, [facility] [address] [id number] [place] [address] Sep, [facility] [address] [id number] [place] [address] Sep, [facility] [address] [id number] [place] [address] Sep, [facility] [address] [id number] [place] [address] Aug, [facility] [address] [id number] [place] [address] Aug, [facility] [address] [id number] [place] [address] Jul, [facility] [address] [id number] [place] [address] Jul, [facility] [address] [id number] [place] [address] Jul, [facility] [address] [id number] [place] [address] Jul, [facility] [address] [id number] [place] [address] Jul, [facility] [address] [id number] [place] [address] Jun, [facility] [address] [id number] [place] [address] 25 Jun, 2012 [facility] [address] [id number] [place] [address] 19 Sep, 2012 [facility] [id number] [place] [address] 18 Sep, 2012 [facility] [address] [id number] [place] [address] 16 Sep, 2012 [facility] [address] [id number] [place] [address] Jun, [facility] [address] [id number] [place] [address] Jun, [facility] [address] [id number] [place] [address] May, [facility] [address] [id number] [place] [address] May, [facility] [address] [id number] [place] [address] Apr, [facility] [address] [id number] [place] [address] Apr, [facility] [address] [id number] [place] [address] Apr, [facility] [address] [id number] [place] [address] Mar, [facility] [address] [id number] [place] [address] Mar, [facility] [address] [id number] [place] [address] February, [facility] [address] [id number] [place] [address] February, [facility] [address] [id number] [place] [address] February, [facility] [address] [id number] [place] [address] February, [facility] [address] [id number] [place] [address] Jan, [facility] [address] [id number] [place] [address] Jan, [facility] [address] [id number] [place] [address] 16 Jan, 2013 [facility] [address] [id number] [place] [address] Dec, [facility] [address] [id number] [place] [address] Dec, [facility] [address] [id number] [place] [address] Dec, [facility] [address] [id number] [place] [address] Dec, [facility] [address] [id number] [place] [address] Nov, [facility] [address] [id number] [place] [address] Nov, [facility] [address] [id number] [place] [address] Oct, [facility] [address] [id number] [place] [address] Oct, [facility] [address] [id number] [place] [address] Oct, [facility] [address] [id number] [place] [address] Oct, [facility] [address] [id number] [place] [address] Aug, [facility] [address] [id number] [place] [address] Aug, [facility] [address] [id number] [place] [address] Jun, [facility] [address] [id number] [place] [address] May, [facility] [address] [id number] [place] [address] May, [facility] [address] [id number] [place] [address] Apr, [facility] [address] [id number] [place] [address] Apr, [facility] [address] [id number] [place] [address] Apr, [facility] [address] [id number] [place] [address] Mar, [facility] [address] [id number] [place] [address] 19 Mar, 2012 [facility] [address] [id number] [place] [address] 13 Mar, 2012 [facility] [address] [id number] [place] [address] Mar, [facility] [address] [id number] [place] [address] Mar, [facility] [address] [id number] [place] [address] February, [facility] [address] [id number] [place] [address] February, [facility] [address] [id number] [place] [address] February, [facility] [address] [id number] [place] [address] February, [facility] [address] [id number] [place] [address] February, [facility] [address] [id number] [place] [address] February, [facility] [address] [id number] [place] [address] February, [facility] [address] [id number] [place] [address] 25 Jan, 2012 [facility] [address] [id number] [place] [address] 18 Jan, 2012 [facility] [address] [id number] [place] [address] 17 Jan, 2012 [facility] [address] [id number] [place] [address] 13 Jan, 2012 [facility] [address] [id number] [place] [address] 10 Jan, 2012 [facility] [address] [id number] [place] [address] 04 Jan, 2012 [facility] [address] [id number] [place] [address] 30 Dec, 2011 [facility] [address] [id number] [place] [address] 24 Dec, 2011 [facility] [address] [id number] [place] [address] 20 Dec, 2011 [facility] [address] [id number] [place] [address] 13 Dec, 2011 [facility] [address] [id number] [place] [address] 06 Dec, 2011 [facility] [address] [id number] [place] [address] 28 Nov, 2011 [facility] [address] [id number] [place] [address] Nov, [facility] [address] [id number] [place] [address] Nov, [facility] [address] [id number] [place] [address] 14 Nov, 2011 [facility] [address] [id number] [place] [address] Nov, [facility] [address] [id number] [place] [address] Nov, [facility] [address] [id number] [place] [address] Oct, [facility] [address] [id number] [place] [address] Oct, [facility] [address] [id number] [place] [address] Oct, [facility] [address] [id number] [place] [address] Oct, [facility] [address] [id number] [place] [address] 03 Oct, 2011 [facility] [address] [id number] [place] [address] 27 Sep, 2011 [facility] [address] [id number] [place] [address] Sep, [facility] [address] [id number] [place] [address] 20 Sep, 2011 [facility] [address] [id number] [place] [address] 14 Sep, 2011 [facility] [address] [id number] [place] [address] 14 Sep, 2011 [facility] [address] [id number] [place] [address] 13 Sep, 2011 [facility] [address] [id number] [place] [address] 12 Sep, 2011 [facility] [address] [id number] [place] [address] Sep, [facility] [address] [id number] [place] [address] 05 Sep, 2011 [facility] [address] [id number] [place] [address] 30 Aug, 2011 [facility] [address] [id number] [place] [address] 30 Aug, 2011 [facility] [address] [id number] [place] [address] Aug, [facility] [address] [id number] [place] [address] Aug, [facility] [id number] [place] [address] Aug, [facility] [address] [id number] [place] [address] Aug, [facility] [address] [id number] [place] [address] Aug, [facility] [address] [id number] [place] [address] 16 Aug, 2011 [facility] [address] [id number] [place] [address] Aug, [facility] [address] [id number] [place] [address] Aug, [facility] [address] [id number] [place] [address] Aug, [facility] [address] [id number] [place] [address] Aug, [facility] [address] [id number] [place] [address] Jul, [facility] [address] [id number] [place] [address] Jul, [facility] [address] [id number] [place] [address] Jul, [facility] [address] [id number] [place] [address] Jul, [facility] [address] [id number] [place] [address] Jul, [facility] [address] [id number] [place] [address] Jul, [facility] [address] [id number] [place] [address] Jul, [facility] [address] [id number] [place] [address] Jul, [facility] [address] [id number] [place] [address] Jul, [facility] [address] [id number] [place] [address] Jul, [facility] [address] [id number] [place] [address] Nov, [facility] [address] [id number] [place] [address] Aug, [facility] [address] [id number] [place] [address] Aug, [facility] [address] [id number] [place] [address] Aug, [facility] [address] [id number] [place] [address] Aug, [facility] [address] [id number] [place] [address] Jul, IMMUNIZATIONS No Known Immunizations SOCIAL HISTORY Never Assessed REASON FOR VISIT PLAN OF CARE VITAL SIGNS MEDICATIONS No Known Medications RESULTS No Results PROCEDURES No Known [...] Suicide attempt by hanging 2015 Hospitalization History [facility] 01/30/2018-02/10/20 08 Hospitalization History [facility] 05/04/18-
--- OUTSIDE RECORDS SUMMARY | 2020-04-04 01:51 | XMS REPORT ---
Author Author Kaila Onofre Doctor Organization [facility] Address Unknown Phone Unavailable Care Team Providers Care Nursing Home Assistant Administrator Name Role Phone Migration, Doctor Unavailable Unavailable PROBLEMS Type Condition ICD9-CM Code LPT20-OW Code Onset Dates Condition S tatus SNOMED Code Problem Paranoid schizophrenia F20.0 Active 07927951 Problem Borderline personality disorder F60.3 Active 89692630 Problem Schizoaffective disorder, depressive type F25.1 Active 83983440 Problem Schizoaffective disorder, unspecified F25.9 Active 55404764 Problem Attention deficit hyperactivity disorder (ADHD), inattentive type, 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 70012813 Problem Posttraumatic stress disorder F43.10 Active 50406025 Problem High risk medication use Z79.899 Activ e [id number] ALLERGIES No Information ENCOUNTERS Encounter Location Date Diagnosis [place] [address] [address] Nov, [place] [address] [address] Oct, Paranoid schizophrenia F20.0 ; Attention deficit hyperactivity disorder (ADHD), inattentive type, 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 ; Posttraumatic stress disorder F43.10 and Borderline personality disorder F60.3 [place] [address] [address] Oct, [place] [address] [address] Sep, Paranoid schizophrenia F20.0 ; Attention deficit hyperactivity disorder (ADHD), inattentive type, 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 ; Posttraumatic stress disorder F43.10 and Borderline personality disorder F60.3 [place] [address] [address] Aug, Paranoid schizophrenia F20.0 ; Attention deficit hyperactivity disorder (ADHD), inattentive type, 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 ; Posttraumatic stress disorder F43.10 and Borderline personality disorder F60.3 [facility] [address] [address] Aug, [facility] [address] [facility] [id number] [address] [place] [address] Aug, Acute bronchitis, unspecifie d organism J20.9 [facility] [address] [address] Aug, [facility] [address] [address] Aug, [facility] [address] [address] Jul, Paranoid schizophrenia F20.0 ; Attention deficit hyperactivity disorder (ADHD), inattentive type, 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 ; Posttraumatic stress disorder F43.10 and Borderline personality disorder F60.3 [facility] [address] [address] Jul, [facility] [address] [address] Jun, Paranoid schizophrenia F20.0 ; Other katherin g term (current) 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 Z79.899 ; Attention deficit hyperactivity disorder (ADHD), inattentive type, 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 ; Posttraumatic stress disorder F43.10 and Borderline personality disorder F60.3 [facility] [address] [address] Jun, Paranoid schizophrenia F20.0 ; Attention deficit hyperactivity disorder (ADHD), inattentive type, 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 ; Posttraumatic stress disorder F43.10 ; Borderline personality disorder F60.3 and Other half-way (current) drug therapy Z79.899 [facility] [address] [address] Apr, Paranoid schizophrenia F20.0 ; Posttraum atic stress disorder F43.10 ; Attention deficit hyperactivity disorder (ADHD), inattentive type, 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 and Borderline personality disorder F60.3 [facility] [address] [address] Apr, Paranoid schizophrenia F20.0 [facility] [address] [address] Apr, Paranoid schizophrenia F20.0 ; Posttraum atic stress disorder F43.10 ; Attention deficit hyperactivity disorder (ADHD), inattentive type, 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 and Borderline personality disorder F60.3 [facility] [address] [address] Mar, Paranoid schizophrenia F20.0 [facility] [address] [address] Mar, Paranoid schizophrenia F20.0 ; Posttraum atic stress disorder F43.10 ; Attention deficit hyperactivity disorder (ADHD), inattentive type, 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 and Borderline personality disorder F60.3 [place] [address] [address] February, Paranoid schizophrenia F20.0 [facility] [address] [address] Jan, Paranoid schizophrenia F20.0 ; Posttraum atic stress disorder F43.10 ; Attention deficit hyperactivity disorder (ADHD), inattentive type, 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 and Borderline personality disorder F60.3 [facility] [address] [address] Dec, Paranoid schizophrenia F20.0 ; Posttraum atic stress disorder F43.10 ; Attention deficit hyperactivity disorder (ADHD), inattentive type, 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 and Borderline personality disorder F60.3 [facility] [address] [address] Dec, Paranoid schizophrenia F20.0 ; Posttraum atic stress disorder F43.10 ; Attention deficit hyperactivity disorder (ADHD), inattentive type, 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 and Borderline personality disorder F60.3 [facility] [address] [address] Oct, Paranoid schizophrenia F20.0 ; Posttraum atic stress disorder F43.10 ; Attention deficit hyperactivity disorder (ADHD), inattentive type, 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 and Borderline personality disorder F60.3 [facility] [address] [place] [id number] [place] [address] Oct, Paranoid schizophrenia F20.0 ; Posttraum atic stress disorder F43.10 ; Attention deficit hyperactivity disorder (ADHD), inattentive type, 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 and Borderline personality disorder F60.3 [facility] [address] [place] [id number] [place] [address] Aug, [facility] [address] [address] Aug, Paranoid schizophrenia F20.0 ; Posttraum atic stress disorder F43.10 ; Attention deficit hyperactivity disorder (ADHD), inattentive type, 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 and Borderline personality disorder F60.3 [facility] [address] [facility] [id number] [place] [address] Jul, Dry skin dermatitis L85.3 [facility] [address] [place] [id number] [place] [address] Jul, [facility] [address] [place] [id number] [place] [address] Jul, Paranoid schizophrenia F20.0 [facility] [address] [place] [id number] [place] [address] May, Paranoid schizophrenia F20.0 ; Posttraum atic stress disorder F43.10 ; Attention deficit hyperactivity disorder (ADHD), inattentive type, 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 and Borderline personality disorder F60.3 [facility] [address] [place] [id number] [place] [address] May, [facility] [address] [address] May, Paranoid schizophrenia F20.0 [facility] [address] [address] May, Paranoid schizophrenia F20.0 ; Posttraum atic stress disorder F43.10 ; Attention deficit hyperactivity disorder (ADHD), inattentive type, 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 and Borderline personality disorder F60.3 [facility] [address] [address] Apr, [facility] [address] [address] Apr, Paranoid schizophrenia F20.0 ; Posttraum atic stress disorder F43.10 ; Attention deficit hyperactivity disorder (ADHD), inattentive type, 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 and Borderline personality disorder F60.3 [facility] [address] [address] Apr, [facility] [address] [address] Apr, Schizoaffective disorder, depressive typ e F25.1 and Borderline personality disorder F60.3 [facility] [address] [address] Apr, Paranoid schizophrenia F20.0 ; Posttraum atic stress disorder F43.10 ; Attention deficit hyperactivity disorder (ADHD), inattentive type, 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 and Borderline personality disorder F60.3 [facility] [address] [address] Apr, [facility] [address] [address] Apr, Paranoid schizophrenia F20.0 ; Posttraum atic stress disorder F43.10 ; Attention deficit hyperactivity disorder (ADHD), inattentive type, 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 and Borderline personality disorder F60.3 [facility] [address] [address] Apr, [facility] [address] [address] Mar, Paranoid schizophrenia F20.0 [facility] [address] [place] [id number] Mar, [facility] [address] [address] Mar, Paranoid schizophrenia F20.0 ; Posttraum atic stress disorder F43.10 ; Attention deficit hyperactivity disorder (ADHD), inattentive type, 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 and Borderline personality disorder F60.3 [facility] [address] [address] February, Paranoid schizophrenia F20.0 [facility] [address] [address] February, Paranoid schizophrenia F20.0 ; Posttraum atic stress disorder F43.10 ; Attention deficit hyperactivity disorder (ADHD), inattentive type, 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 and Borderline personality disorder F60.3 [facility] [address] [address] February, Paranoid schizophrenia F20.0 ; Posttraum atic stress disorder F43.10 ; Attention deficit hyperactivity disorder (ADHD), inattentive type, 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 and Borderline personality disorder F60.3 [facility] [address] [address] February, [facility] [address] [address] February, Paranoid schizophrenia F20.0 [facility] [address] [address] February, Paranoid schizophrenia F20.0 [facility] [address] [address] February, Paranoid schizophrenia F20.0 ; Posttraum atic stress disorder F43.10 ; Attention deficit hyperactivity disorder (ADHD), inattentive type, 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 and Borderline personality disorder F60.3 [facility] [address] [address] Jan, Paranoid schizophrenia F20.0 ; Posttraum atic stress disorder F43.10 ; Attention deficit hyperactivity disorder (ADHD), inattentive type, 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 and Borderline personality disorder F60.3 [facility] [address] [address] Jan, Paranoid schizophrenia F20.0 [facility] [address] [address] Jan, Paranoid schizophrenia F20.0 [facility] [address] [address] Jan, Paranoid schizophrenia F20.0 ; Posttraum atic stress disorder F43.10 ; Attention deficit hyperactivity disorder (ADHD), inattentive type, 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 and Borderline personality disorder F60.3 [facility] [address] [address] Dec, [facility] [address] [address] Nov, Paranoid schizophrenia F20.0 ; Posttraum atic stress disorder F43.10 ; Attention deficit hyperactivity disorder (ADHD), inattentive type, 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 and Borderline personality disorder F60.3 [place] [address] [address] Nov, [facility] [address] [address] Oct, Paranoid schizophrenia F20.0 [facility] [address] [address] Oct, Paranoid schizophrenia F20.0 ; Posttraum atic stress disorder F43.10 ; Attention deficit hyperactivity disorder (ADHD), inattentive type, 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 ; Borderline personality disorder F60.3 and Other long term care pharmacist (current) drug therapy Z79.899 [facility] [address] [address] Oct, [facility] [address] [address] Oct, [facility] [address] [address] Sep, [facility] [address] [place] [address] Sep, Paranoid schizophrenia F20.0 ; Posttraum atic stress disorder F43.10 ; Attention deficit hyperactivity disorder (ADHD), inattentive type, 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 and Borderline personality disorder F60.3 [facility] [address] [address] Sep, Paranoid schizophrenia F20.0 [facility] [address] [address] Aug, Paranoid schizophrenia F20.0 ; Posttraum atic stress disorder F43.10 ; Attention deficit hyperactivity disorder (ADHD), inattentive type, 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 and Borderline personality disorder F60.3 [facility] [address] [address] Aug, Paranoid schizophrenia F20.0 ; Posttraum atic stress disorder F43.10 ; Attention deficit hyperactivity disorder (ADHD), inattentive type, 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 and Borderline personality disorder F60.3 [facility] [address] [address] Aug, [facility] [address] [address] Jul, Paranoid schizophrenia F20.0 ; Posttraum atic stress disorder F43.10 ; Attention deficit hyperactivity disorder (ADHD), inattentive type, 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 and Borderline personality disorder F60.3 [facility] [address] [address] Jul, Paranoid schizophrenia F20.0 [facility] [address] [place] [id number] Jul, Paranoid schizophrenia F20.0 ; Posttraum atic stress disorder F43.10 ; Attention deficit hyperactivity disorder (ADHD), inattentive type, 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 and Borderline personality disorder F60.3 [facility] [address] [facility] [place] [address] Jun, Paranoid schizophrenia F20.0 ; Posttraum atic stress disorder F43.10 ; Attention deficit hyperactivity disorder (ADHD), inattentive type, 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 and Borderline personality disorder F60.3 [facility] [address] [place] [id number] [place] [address] May, Other half-way (current) drug therapy Z 79.899 [facility] [address] [address] May, [facility] [address] [address] May, [facility] [address] [address] May, Attention deficit hyperactivity disorder (ADHD), inattentive type, 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 [facility] [address] [place] [id number] [place] [address] May, [facility] [address] [place] [id number] [place] [address] May, Attention deficit hyperactivity disorder (ADHD), inattentive type, 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 [facility] [address] [place] [id number] [place] [address] May, Paranoid schizophrenia F20.0 ; Posttraum atic stress disorder F43.10 ; Attention deficit hyperactivity disorder (ADHD), inattentive type, 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 and Other half-way (current) drug therapy Z79.899 [facility] [address] [place] [id number] [place] [address] Apr, Paranoid schizophrenia F20.0 [facility] [address] [place] [id number] [place] [address] Apr, Paranoid schizophrenia F20.0 ; Posttraum atic stress disorder F43.10 and Attention deficit hyperactivity disorder (ADHD), inattentive type, 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 [facility] [id number] [place], [place] [id number] February, [facility] [address] [place] [id number] February, Paranoid schizophrenia F20.0 ; Posttraum atic stress disorder F43.10 and Attention deficit hyperactivity disorder (ADHD), inattentive type, 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 [facility] [address] [address] February, Paranoid schizophrenia F20.0 ; Posttraum atic stress disorder F43.10 and Attention deficit hyperactivity disorder (ADHD), inattentive type, 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 [facility] [address] [place] [id number] Jan, Paranoid schizophrenia F20.0 ; Posttraum atic stress disorder F43.10 and Attention deficit hyperactivity disorder (ADHD), inattentive type, 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 [facility] [address] [id number] Dec, Dental examination Z01.20 [facility] [address] [id number] Nov, Dental examination Z01.20 [facility] [address] [id number] Nov, Dental examination Z01.20 [facility] [address] [id number] Nov, Dental caries K02.9 [facility] [address] [address] Nov, High risk medication use Z79.899 [facility] [address] [place] [id number] Nov, Paranoid schizophrenia F20.0 ; Posttraum atic stress disorder F43.10 ; Attention deficit hyperactivity disorder (ADHD), inattentive type, 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 and Borderline personality disorder in adult F60.3 [facility] [address] [id number] Oct, Dental caries K02.9 [facility] [address] [address] Sep, Paranoid schizophrenia F20.0 ; Posttraum atic stress disorder F43.10 and Attention deficit hyperactivity disorder (ADHD), inattentive type, 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 [facility] [address] [address] 16 Aug, 2016 Paranoid schizophrenia F20.0 ; Posttraum atic stress disorder F43.10 and Attention deficit hyperactivity disorder (ADHD), inattentive type, 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 [facility] [address] [facility] [id number] [address] [place] [address] Aug, Strep throat J02.0 and Cough R05 [facility] [address] [address] Aug, [facility] [address] [address] Jul, Paranoid schizophrenia F20.0 ; Posttraum atic stress disorder F43.10 and Attention deficit hyperactivity disorder (ADHD), inattentive type, 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 [facility] [address] [address] Jul, [facility] [address] [address] Jun, Paranoid schizophrenia F20.0 ; Posttraum atic stress disorder F43.10 and Attention deficit hyperactivity disorder (ADHD), inattentive type, 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 [facility] [address] [facility] [place] [id number] Jun, Dental examination Z01.20 [facility] [address] [address] Jun, [facility] [address] [address] May, Paranoid schizophrenia F20.0 [facility] [address] [address] May, Paranoid schizophrenia F20.0 ; Posttraum atic stress disorder F43.10 and Attention deficit hyperactivity disorder (ADHD), inattentive type, 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 [facility] [address] [address] May, [facility] [address] [place] [id number] [place] [address] May, Paranoid schizophrenia F20.0 [facility] [address] [place] [id number] [place] [address] May, [facility] [address] [address] May, Paranoid schizophrenia F20.0 [facility] [address] [address] May, Schizoaffective disorder, unspecified F2 5.9 [facility] [address] [address] May, Schizoaffective disorder, unspecified F2 5.9 [facility] [address] [place] [id number] [place] [address] May, [facility] [address] [address] May, Paranoid schizophrenia F20.0 [facility] [address] [address] May, Paranoid schizophrenia F20.0 ; Posttraum atic stress disorder F43.10 and Attention deficit hyperactivity disorder (ADHD), inattentive type, 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 [facility] [address] [place] [id number] [place] [address] Mar, [facility] [address] [address] Mar, Paranoid schizophrenia F20.0 ; Posttraum atic stress disorder F43.10 and Attention deficit hyperactivity disorder (ADHD), inattentive type, 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 [facility] [address] [id number] [place] [address] Mar, Paranoid schizophrenia F20.0 [facility] [address] [address] Mar, Paranoid schizophrenia F20.0 ; Attention deficit hyperactivity disorder (ADHD), inattentive type, 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 and Posttraumatic stress disorder F43.10 [facility] [address] [address] Mar, [facility] [address] [address] Mar, Paranoid schizophrenia F20.0 ; Posttraum atic stress disorder F43.10 and Attention deficit hyperactivity disorder (ADHD), inattentive type, 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 [facility] [address] [address] February, [facility] [address] [address] February, [facility] [address] [address] February, [facility] [address] [address] February, [facility] [address] [address] Jan, Paranoid schizophrenia F20.0 [facility] [address] [id number] Jan, Dental examination Z01.20 [facility] [address] [id number] Jan, Dental caries K02.9 [facility] [address] [id number] Jan, Dental examination Z01.20 [facility] [address] [id number] Dec, Encounter for dental examination Z01.20 [facility] [address] [address] Dec, Paranoid schizophrenia F20.0 [facility] [address] [facility] [place] [id number] Dec, Dental examination Z01.20 [facility] [address] [facility] [place] [address] Dec, [facility] [address] [address] Dec, Paranoid schizophrenia F20.0 ; Posttraum atic stress disorder F43.10 and Attention deficit hyperactivity disorder (ADHD), inattentive type, 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 [facility] [address] [address] Nov, Schizoaffective disorder, unspecified F2 5.9 [facility] [address] [address] Oct, Paranoid schizophrenia F20.0 [facility] [address] [address] Oct, [facility] [address] [address] Sep, Paranoid schizophrenia F20.0 ; Posttraum atic stress disorder F43.10 and Attention deficit hyperactivity disorder (ADHD), inattentive type, 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 [facility] [address] [address] Sep, [facility] [address] [address] Sep, Paranoid schizophrenia F20.0 ; Posttraum atic stress disorder F43.10 and Attention deficit hyperactivity disorder (ADHD), inattentive type, 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 [facility] [address] [address] Aug, Paranoid schizophrenia F20.0 [facility] [address] [address] Aug, [facility] [address] [address] Aug, Posttraumatic stress disorder F43.10 ; P aranoid schizophrenia F20.0 and Attention deficit hyperactivity disorder (ADHD), inattentive type, 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 [place] [address] [address] Jul, Bipolar disorder, unspecified F31.9 [place] [address] [address] Jul, [place] [address] [address] Jun, [place] [address] [address] Jun, Schizoaffective disorder, chronic 295.72 ; Posttraumatic stress disorder 309.81 and Attention deficit disorder of childhood without mention of hyperactivity 314.00 [place] [address] [address] May, [place] [address] [address] May, [facility] [address] [address] May, Schizoaffective disorder, chronic 295.72 ; Posttraumatic stress disorder 309.81 ; Attention deficit disorder of childhood without mention of hyperactivity 314.00 and Bipolar disorder, unspecified 296.80 [place] [address] [address] Apr, Schizoaffective disorder, chronic 295.72 [facility] [address] [address] Apr, [facility] [address] [address] Apr, Schizoaffective disorder, chronic 295.72 ; Posttraumatic stress disorder 309.81 and Attention deficit disorder of childhood without mention of hyperactivity 314.00 [facility] [address] [address] Mar, Disorganized schizophrenia, 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 [facility] [address] [facility] [place] [address] Mar, [facility] [address] [facility] [place] [address] Mar, [facility] [address] [facility] [place] [address] Mar, [facility] [address] [place] [id number] [place] [address] Mar, [facility] [address] [facility] [place] [address] February, Schizoaffective disorder, chronic 295.72 [facility] [address] [place] [id number] [place] [address] February, [facility] [address] [facility] [place] [address] February, Attention deficit disorder of childhood without mention of hyperactivity 314.00 ; Posttraumatic stress disorder 309.81 and Schizoaffective disorder, chronic 295.72 [facility] [id number] [place] [address] 29 Jan, 2015 [facility] [id number] [place] [address] 14 Jan, 2015 [facility] [id number] [place] [address] Jan, [facility] [id number] [place] [address] Dec, [facility] [id number] [place] [address] Dec, [facility] [id number] [place] [address] Dec, [facility] [id number] [place] [address] Dec, [facility] [id number] [place] [address] Dec, [facility] [id number] [place] [address] Dec, [facility] [place] [facility] [id number] [place] [address] Dec, [facility] [place] [facility] [id number] [place] [address] Dec, [facility] [place] [facility] [id number] [place] [address] Nov, [facility] [place] [facility] [id number] [place] [address] Nov, [facility] [place] [facility] [id number] [place] [address] Nov, [facility] [place] [facility] [id number] [place] [address] Nov, [facility] [place] [facility] [id number] [place] [address] Nov, [facility] [place] [facility] [id number] [place] [address] Nov, [facility] [place] [facility] [id number] [place] [address] Nov, [facility] [place] [facility] [id number] [place] [address] Nov, [facility] [place] [facility] [id number] [place] [address] Nov, [facility] [place] [facility] [id number] [place] [address] Nov, [facility] [place] [facility] [id number] [place] [address] Oct, [facility] [place] [facility] [id number] [place] [address] Oct, [facility] [place] [facility] [id number] [place] [address] Oct, [facility] [place] [facility] [id number] [place] [address] 15 Oct, 2014 [facility] [place] [facility] [id number] [place] [address] 15 Oct, 2014 [facility] [place] [facility] [id number] [place] [address] Oct, [facility] [place] [facility] [id number] [place] [address] Oct, [facility] [place] [facility] [id number] [place] [address] 17 Sep, 2014 [facility] [place] [facility] [id number] [place] [address] 17 Sep, 2014 [facility] [place] [facility] [id number] [place] [address] 15 Sep, 2014 [facility] [place] [facility] [id number] [place] [address] 15 Sep, 2014 [facility] [place] [facility] [id number] [place] [address] Aug, [facility] [place] [facility] [id number] [place] [address] Aug, [facility] [place] [facility] [id number] [place] [address] Aug, [facility] [place] [facility] [id number] [place] [address] 14 Aug, 2014 [facility] [place] [facility] [id number] [place] [address] 14 Aug, 2014 [facility] [place] [facility] [id number] [place] [address] Aug, [facility] [place] [facility] [id number] [place] [address] 29 Jul, 2014 [facility] [place] [facility] [id number] [place] [address] 29 Jul, 2014 [facility] [place] [facility] [id number] [place] [address] 24 Jul, 2014 [facility] [place] [facility] [id number] [place] [address] 24 Jul, 2014 [facility] [place] [facility] [address] [facility] [id number] [place] [address] 15 Jul, 2014 [facility] [place] [facility] [id number] [place] [address] 15 Jul, 2014 [facility] [place] [facility] [id number] [place] [address] 27 Jun, 2013 [facility] [place] [facility] [id number] [place] [address] 27 Jun, 2013 [facility] [place] [facility] [address] [facility] [id number] [place] [address] 26 Jun, 2013 [facility] [place] [facility] [id number] [place] [address] Jun, 2013 [facility] [place] [facility] [id number] [place] [address] Jun, 2013 [facility] [place] [facility] [id number] [place] [address] 26 Jun, 2013 [facility] [place] [facility] [id number] [place] [address] 16 Jun, 2013 [facility] [place] [facility] [id number] [place] [address] 16 Jun, 2013 [facility] [place] [facility] [id number] [place] [address] 16 Jun, 2013 [facility] [place] [facility] [id number] [place] [address] 16 Jun, 2013 [facility] [place] [facility] [id number] [place] [address] Jun, [facility] [place] [facility] [id number] [place] [address] May, [facility] [place] [facility] [id number] [place] [address] May, [facility] [place] [facility] [id number] [place] [address] May, [facility] [place] [facility] [address] [id number] [place] [address] May, [facility] [place] [facility] [address] [facility] [id number] [place] [address] May, [facility] [place] [facility] [address] [facility] [id number] [place] [address] May, [facility] [place] [facility] [address] [facility] [id number] [place] [address] May, [facility] [place] [facility] [address] [facility] [id number] [place] [address] May, [facility] [place] [facility] [id number] [place] [address] May, [facility] [place] [facility] [id number] [place] [address] May, [facility] [place] [facility] [id number] [place] [address] Apr, [facility] [place] [facility] [address] [facility] [id number] [place] [address] Apr, [facility] [place] [facility] [id number] [place] [address] Apr, [facility] [place] [facility] [id number] [place] [address] Apr, [facility] [place] [facility] [id number] [place] [address] Apr, [facility] [place] [facility] [id number] [place] [address] Apr, [facility] [place] [facility] [address] [facility] [id number] [place] [address] Apr, [facility] [place] [facility] [id number] [place] [address] Apr, [facility] [place] [facility] [id number] [place] [address] Apr, [facility] [place] [facility] [id number] [place] [address] Apr, [facility] [place] [facility] [address] [facility] [id number] [place] [address] Mar, [facility] [place] [facility] [address] [facility] [id number] [place] [address] Mar, [facility] [place] [facility] [id number] [place] [address] Mar, [facility] [place] [facility] [address] [facility] [id number] [place] [address] Mar, [facility] [place] [facility] [address] [facility] [id number] [place] [address] Mar, [facility] [place] [facility] [id number] [place] [address] Mar, [facility] [place] [facility] [id number] [place] [address] Mar, [facility] [place] [facility] [id number] [place] [address] Mar, [facility] [place] [facility] [id number] [place] [address] 16 Mar, 2014 [facility] [place] [facility] [id number] [place] [address] Mar, [facility] [place] [facility] [id number] [place] [address] Mar, [facility] [place] [facility] [id number] [place] [address] Mar, [facility] [place] [facility] [address] [facility] [id number] [place] [address] Mar, [facility] [place] [facility] [id number] [place] [address] 10 Mar, 2014 [facility] [place] [facility] [id number] [place] [address] 09 Mar, 2014 [facility] [place] [facility] [id number] [place] [address] Mar, [facility] [place] [facility] [id number] [place] [address] Mar, [facility] [place] [facility] [address] [facility] [id number] [place] [address] Mar, [facility] [place] [facility] [address] [facility] [id number] [place] [address] Mar, [facility] [place] [facility] [id number] [place] [address] Mar, [facility] [place] [facility] [id number] [place] [address] February, [facility] [place] [facility] [address] [facility] [id number] [place] [address] February, [facility] [place] [facility] [id number] [place] [address] February, [facility] [place] [facility] [id number] [place] [address] February, [facility] [place] [facility] [id number] [place] [address] February, [facility] [place] [facility] [id number] [place] [address] February, [facility] [place] [facility] [id number] [place] [address] February, [facility] [place] [facility] [id number] [place] [address] February, [facility] [place] [facility] [id number] [place] [address] February, [facility] [place] [facility] [address] [facility] [id number] [place] [address] February, [facility] [place] [facility] [address] [id number] [place] [address] February, [facility] [place] [facility] [id number] [place] [address] February, [facility] [place] [facility] [id number] [place] [address] February, [facility] [place] [facility] [id number] [place] [address] February, [facility] [place] [facility] [id number] [place] [address] February, [facility] [place] [facility] [id number] [place] [address] February, [facility] [place] [facility] [id number] [place] [address] February, [facility] [place] [facility] [id number] [place] [address] February, [facility] [place] [facility] [id number] [place] [address] February, [facility] [place] [facility] [id number] [place] [address] February, [facility] [place] [facility] [id number] [place] [address] February, [facility] [place] [facility] [id number] [place] [address] Jan, [facility] [place] [facility] [id number] [place] [address] Jan, [facility] [place] [facility] [id number] [place] [address] Jan, [facility] [place] [facility] [id number] [place] [address] Jan, [facility] [place] [facility] [id number] [place] [address] Jan, [facility] [place] [facility] [id number] [place] [address] Jan, [facility] [place] [facility] [id number] [place] [address] Jan, [facility] [place] [facility] [id number] [place] [address] Jan, [facility] [place] [facility] [id number] [place] [address] 21 Dec, 2013 [facility] [place] [facility] [address] [facility] [id number] [place] [address] 20 Dec, 2013 [facility] [place] [facility] [address] [facility] [id number] [place] [address] 20 Dec, 2013 [facility] [place] [facility] [id number] [place] [address] 19 Dec, 2013 [facility] [place] [facility] [id number] [place] [address] 19 Dec, 2013 [facility] [place] [facility] [address] [facility] [id number] [place] [address] 15 Dec, 2013 [facility] [place] [facility] [id number] [place] [address] 15 Dec, 2013 [facility] [place] [facility] [id number] [place] [address] 11 Dec, 2013 [facility] [place] [facility] [id number] [place] [address] 10 Dec, 2013 [facility] [place] [facility] [id number] [place] [address] 10 Dec, 2013 [facility] [place] [facility] [id number] [place] [address] 18 Nov, 2013 [facility] [place] [facility] [id number] [place] [address] 17 Nov, 2013 [facility] [place] [facility] [id number] [place] [address] Nov, [facility] [place] [facility] [id number] [place] [address] Nov, [facility] [place] [facility] [id number] [place] [address] Nov, [facility] [place] [facility] [id number] [place] [address] Oct, [facility] [place] [facility] [id number] [place] [address] Oct, [facility] [place] [facility] [id number] [place] [address] Oct, [facility] [place] [facility] [id number] [place] [address] Sep, [facility] [place] [facility] [id number] [place] [address] Sep, 2012 [facility] [place] [facility] [id number] [place] [address] Sep, 2012 [facility] [place] [facility] [id number] [place] [address] Sep, [facility] [place] [facility] [id number] [place] [address] Aug, [facility] [place] [facility] [id number] [place] [address] Aug, [facility] [place] [facility] [id number] [place] [address] Jul, [facility] [place] [facility] [id number] [place] [address] Jul, [facility] [place] [facility] [id number] [place] [address] Jul, [facility] [place] [facility] [id number] [place] [address] Jul, [facility] [place] [facility] [id number] [place] [address] Jul, [facility] [place] [facility] [id number] [place] [address] 25 Jun, 2012 [facility] [place] [facility] [id number] [place] [address] 25 Sep, 2012 [facility] [place] [facility] [id number] [place] [address] 19 Sep, 2012 [facility] [place] [facility] [id number] [place] [address] 18 Sep, 2012 [facility] [place] [facility] [id number] [place] [address] 16 Sep, 2013 [facility] [place] [facility] [address] [id number] [place] [address] 12 Jun, 2013 [facility] [place] [facility] [address] [facility] [id number] [place] [address] 11 Jun, 2013 [facility] [place] [facility] [id number] [place] [address] 30 May, 2013 [facility] [place] [facility] [id number] [place] [address] May, [facility] [place] [facility] [address] [facility] [id number] [place] [address] Apr, [facility] [place] [facility] [address] [facility] [id number] [place] [address] Apr, [facility] [place] [facility] [id number] [place] [address] Apr, [facility] [place] [facility] [address] [facility] [id number] [place] [address] Mar, [facility] [place] [facility] [address] [facility] [address] [id number] [place] [address] Mar, [facility] [place] [facility] [address] [facility] [address] [id number] [place] [address] February, [facility] [place] [facility] [id number] [place] [address] February, [facility] [place] [facility] [address] [facility] [id number] [place] [address] February, [facility] [place] [facility] [address] [facility] [id number] [place] [address] February, [facility] [place] [facility] [address] [facility] [address] [id number] [place] [address] Jan, [facility] [place] [facility] [address] [facility] [id number] [place] [address] 17 Jan, 2013 [facility] [place] [facility] [address] [facility] [id number] [place] [address] 16 Jan, 2013 [facility] [place] [facility] [address] [id number] [place] [address] 29 Dec, 2012 [facility] [place] [facility] [address] [facility] [id number] [place] [address] Dec, [facility] [place] [facility] [address] [facility] [id number] [place] [address] Dec, [facility] [place] [facility] [address] [facility] [id number] [place] [address] Dec, [facility] [place] [facility] [id number] [place] [address] Nov, [facility] [place] [facility] [address] [facility] [id number] [place] [address] Nov, [facility] [place] [facility] [id number] [place] [address] Oct, [facility] [place] [facility] [address] [id number] [place] [address] Oct, [facility] [place] [facility] [address] [facility] [id number] [place] [address] Oct, [facility] [place] [facility] [id number] [place] [address] Oct, [facility] [place] [facility] [id number] [place] [address] Aug, [facility] [place] [facility] [id number] [place] [address] Aug, [facility] [place] [facility] [id number] [place] [address] Jun, [facility] [place] [facility] [id number] [place] [address] May, [facility] [place] [facility] [id number] [place] [address] May, [facility] [place] [facility] [id number] [place] [address] Apr, [facility] [place] [facility] [address] [facility] [id number] [place] [address] Apr, [facility] [place] [facility] [address] [facility] [id number] [place] [address] 05 Apr, 2012 [facility] [place] [facility] [id number] [place] [address] Mar, [facility] [place] [id number] [place] [address] Mar, [facility] [id number] [place] [address] 13 Mar, 2012 [facility] [id number] [place] [address] Mar, [facility] [id number] [place] [address] Mar, [facility] [id number] [place] [address] February, [facility] [id number] [place] [address] February, [facility] [id number] [place] [address] February, [facility] [id number] [place] [address] February, [facility] [id number] [place] [address] February, [facility] [id number] [place] [address] February, [facility] [id number] [place] [address] February, [facility] [id number] [place] [address] Jan, [facility] [id number] [place] [address] 18 Jan, 2012 [facility] [id number] [place] [address] 17 Jan, 2012 [facility] [id number] [place] [address] 13 Jan, 2012 [facility] [id number] [place] [address] 10 Jan, 2012 [facility] [id number] [place] [address] 04 Jan, 2012 [facility] [id number] [place] [address] 30 Dec, 2011 [facility] [id number] [place] [address] 24 Dec, 2011 [facility] [address] [facility] [id number] [place] [address] 20 Dec, 2011 [facility] [id number] [place] [address] 13 Dec, 2011 [facility] [id number] [place] [address] Dec, [facility] [id number] [place] [address] 28 Nov, 2011 [facility] [id number] [place] [address] Nov, [facility] [id number] [place] [address] 25 Nov, 2011 [facility] [id number] [place] [address] 14 Nov, 2011 [facility] [id number] [place] [address] Nov, [facility] [id number] [place] [address] Nov, [facility] [id number] [place] [address] Oct, [facility] [id number] [place] [address] Oct, [facility] [id number] [place] [address] Oct, [facility] [id number] [place] [address] Oct, [facility] [id number] [place] [address] Oct, [facility] [id number] [place] [address] Sep, [facility] [id number] [place] [address] Sep, [facility] [id number] [place] [address] 20 Sep, 2011 [facility] [id number] [place] [address] 14 Sep, 2011 [facility] [id number] [place] [address] 14 Sep, 2011 [facility] [id number] [place] [address] Sep, [facility] [id number] [place] [address] Sep, [facility] [id number] [place] [address] Sep, [facility] [id number] [place] [address] Sep, [facility] [id number] [place] [address] Aug, [facility] [id number] [place] [address] Aug, [facility] [id number] [place] [address] Aug, [facility] [id number] [place] [address] Aug, [facility] [id number] [place] [address] Aug, [facility] [id number] [place] [address] Aug, [facility] [id number] [place] [address] Aug, [facility] [id number] [place] [address] 16 Aug, 2011 [facility] [id number] [place] [address] Aug, [facility] [id number] [place] [address] Aug, [facility] [address] [facility] [id number] [place] [address] Aug, [facility] [id number] [place] [address] Aug, [facility] [id number] [place] [address] Jul, [facility] [id number] [place] [address] Jul, [facility] [facility] [id number] [place] [address] 24 Jul, 2011 [facility] [id number] [place] [address] Jul, [facility] [id number] [place] [address] Jul, [facility] [id number] [place] [address] Jul, [facility] [id number] [place] [address] 18 Jul, 2011 [facility] [id number] [place] [address] 11 Jul, 2011 [facility] [id number] [place] [address] 10 Jul, 2011 [facility] [id number] [place] [address] 10 Jul, 2011 [facility] [id number] [place] [address] Nov, [facility] [id number] [place] [address] Aug, [facility] [id number] [place] [address] Aug, [facility] [id number] [place] [address] Aug, [facility] [id number] [place] [address] Aug, [facility] [id number] [place] [address] Jul, IMMUNIZATIONS No Known Immunizations SOCIAL HISTORY [...] attempt by hanging 2015 Hospitalization History [facility] 01/30/2018-02/10/20 08 Hospitalization History [facility] 05/04/18-
--- OUTSIDE RECORDS SUMMARY | 2020-04-04 01:52 | XMS REPORT ---
Author Author Kaila Onofre Doctor Organization [facility] Address Unknown Phone Unavailable Care Team Providers Care Gis Consultant Name Role Phone Migration, Doctor Unavailable Unavailable PROBLEMS Type Condition ICD9-CM Code [id number] Code Onset Dates Condition S tatus SNOMED Code Problem Paranoid schizophrenia F20.0 Active 97375932 Problem Borderline personality disorder F60.3 Active 96429360 Problem Schizoaffective disorder, depressive type F25.1 Active 34012885 Problem Schizoaffective disorder, unspecified F25.9 Active 89212808 Problem Attention deficit hyperactivity disorder (ADHD), inattentive type, 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 26512214 Problem Posttraumatic stress disorder F43.10 Active 20882979 Problem High risk medication use Z79.899 Activ e [id number] ALLERGIES No Information ENCOUNTERS Encounter Location Date Diagnosis [place] [address] [address] Oct, Paranoid schizophrenia F20.0 ; Attention deficit hyperactivity disorder (ADHD), inattentive type, 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 ; Posttraumatic stress disorder F43.10 and Borderline personality disorder F60.3 [place] [address] [address] Oct, [facility] [address] [place] [id number] Sep, Paranoid schizophrenia F20.0 ; Attention deficit hyperactivity disorder (ADHD), inattentive type, 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 ; Posttraumatic stress disorder F43.10 and Borderline personality disorder F60.3 [place] [address] [address] Aug, Paranoid schizophrenia F20.0 ; Attention deficit hyperactivity disorder (ADHD), inattentive type, 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 ; Posttraumatic stress disorder F43.10 and Borderline personality disorder F60.3 [place] [address] [place] [address] Aug, [facility] [address] [facility] [id number] [address] [place] [address] Aug, Acute bronchitis, unspecifie d organism J20.9 [facility] [address] [place] [address] [id number] [place] [address] Aug, [facility] [address] [address] Aug, [facility] [address] [address] Jul, Paranoid schizophrenia F20.0 ; Attention deficit hyperactivity disorder (ADHD), inattentive type, 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 ; Posttraumatic stress disorder F43.10 and Borderline personality disorder F60.3 [facility] [address] [address] Jul, [facility] [address] [address] Jun, Paranoid schizophrenia F20.0 ; Other katherin g term (current) 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 Z79.899 ; Attention deficit hyperactivity disorder (ADHD), inattentive type, 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 ; Posttraumatic stress disorder F43.10 and Borderline personality disorder F60.3 [facility] [address] [id number] [place] [address] Jun, Paranoid schizophrenia F20.0 ; Attention deficit hyperactivity disorder (ADHD), inattentive type, 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 ; Posttraumatic stress disorder F43.10 ; Borderline personality disorder F60.3 and Other exterminator (current) drug therapy Z79.899 [facility] [address] [address] Apr, Paranoid schizophrenia F20.0 ; Posttraum atic stress disorder F43.10 ; Attention deficit hyperactivity disorder (ADHD), inattentive type, 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 and Borderline personality disorder F60.3 [facility] [address] [address] Apr, Paranoid schizophrenia F20.0 [facility] [address] [address] Apr, Paranoid schizophrenia F20.0 ; Posttraum atic stress disorder F43.10 ; Attention deficit hyperactivity disorder (ADHD), inattentive type, 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 and Borderline personality disorder F60.3 [facility] [address] [address] Mar, Paranoid schizophrenia F20.0 [facility] [address] [address] Mar, Paranoid schizophrenia F20.0 ; Posttraum atic stress disorder F43.10 ; Attention deficit hyperactivity disorder (ADHD), inattentive type, 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 and Borderline personality disorder F60.3 [place] [address] [address] February, Paranoid schizophrenia F20.0 [place] [address] [address] Jan, Paranoid schizophrenia F20.0 ; Posttraum atic stress disorder F43.10 ; Attention deficit hyperactivity disorder (ADHD), inattentive type, 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 and Borderline personality disorder F60.3 [facility] [address] [address] Dec, Paranoid schizophrenia F20.0 ; Posttraum atic stress disorder F43.10 ; Attention deficit hyperactivity disorder (ADHD), inattentive type, 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 and Borderline personality disorder F60.3 [facility] [address] [address] Dec, Paranoid schizophrenia F20.0 ; Posttraum atic stress disorder F43.10 ; Attention deficit hyperactivity disorder (ADHD), inattentive type, 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 and Borderline personality disorder F60.3 [facility] [address] [address] Oct, Paranoid schizophrenia F20.0 ; Posttraum atic stress disorder F43.10 ; Attention deficit hyperactivity disorder (ADHD), inattentive type, 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 and Borderline personality disorder F60.3 [facility] [address] [place] [address] [id number] [place] [address] Oct, Paranoid schizophrenia F20.0 ; Posttraum atic stress disorder F43.10 ; Attention deficit hyperactivity disorder (ADHD), inattentive type, 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 [address] [facility] [id number] [address] [place] [address] Jul, Dry skin dermatitis L85.3 [facility] [address] [id number] [place] [address] Jul, [facility] [address] [address] Jul, Paranoid schizophrenia F20.0 [facility] [address] [address] [id number] [place] [address] May, Paranoid schizophrenia F20.0 ; Posttraum atic stress disorder F43.10 ; Attention deficit hyperactivity disorder (ADHD), inattentive type, 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 and Borderline personality disorder F60.3 [facility] [address] [place] [address] [id number] [place] [address] May, [facility] [address] [address] May, Paranoid schizophrenia F20.0 [facility] [address] [place] [id number] [place] [address] May, Paranoid schizophrenia F20.0 ; Posttraum atic stress disorder F43.10 ; Attention deficit hyperactivity disorder (ADHD), inattentive type, 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 and Borderline personality disorder F60.3 [facility] [address] [address] Apr, [facility] [address] [address] Apr, Paranoid schizophrenia F20.0 ; Posttraum atic stress disorder F43.10 ; Attention deficit hyperactivity disorder (ADHD), inattentive type, 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 and Borderline personality disorder F60.3 [facility] [address] [address] Apr, [facility] [address] [address] Apr, Schizoaffective disorder, depressive typ e F25.1 and Borderline personality disorder F60.3 [facility] [address] [address] Apr, Paranoid schizophrenia F20.0 ; Posttraum atic stress disorder F43.10 ; Attention deficit hyperactivity disorder (ADHD), inattentive type, 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 and Borderline personality disorder F60.3 [facility] [address] [address] Apr, [facility] [address] [address] Apr, Paranoid schizophrenia F20.0 ; Posttraum atic stress disorder F43.10 ; Attention deficit hyperactivity disorder (ADHD), inattentive type, 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 and Borderline personality disorder F60.3 [facility] [address] [address] Apr, [facility] [address] [address] Mar, Paranoid schizophrenia F20.0 [facility] [address] [address] Mar, [facility] [address] [address] Mar, Paranoid schizophrenia F20.0 ; Posttraum atic stress disorder F43.10 ; Attention deficit hyperactivity disorder (ADHD), inattentive type, 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 and Borderline personality disorder F60.3 [facility] [address] [address] February, Paranoid schizophrenia F20.0 [facility] [address] [address] February, Paranoid schizophrenia F20.0 ; Posttraum atic stress disorder F43.10 ; Attention deficit hyperactivity disorder (ADHD), inattentive type, 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 and Borderline personality disorder F60.3 [facility] [address] [address] February, Paranoid schizophrenia F20.0 ; Posttraum atic stress disorder F43.10 ; Attention deficit hyperactivity disorder (ADHD), inattentive type, 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 and Borderline personality disorder F60.3 [facility] [address] [address] February, [facility] [address] [address] February, Paranoid schizophrenia F20.0 [facility] [address] [address] February, Paranoid schizophrenia F20.0 [facility] [address] [address] February, Paranoid schizophrenia F20.0 ; Posttraum atic stress disorder F43.10 ; Attention deficit hyperactivity disorder (ADHD), inattentive type, 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 and Borderline personality disorder F60.3 [facility] [address] [address] Jan, Paranoid schizophrenia F20.0 ; Posttraum atic stress disorder F43.10 ; Attention deficit hyperactivity disorder (ADHD), inattentive type, 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 and Borderline personality disorder F60.3 [facility] [address] [address] Jan, Paranoid schizophrenia F20.0 [facility] [address] [address] Jan, Paranoid schizophrenia F20.0 [facility] [address] [address] Jan, Paranoid schizophrenia F20.0 ; Posttraum atic stress disorder F43.10 ; Attention deficit hyperactivity disorder (ADHD), inattentive type, 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 and Borderline personality disorder F60.3 [facility] [address] [address] Dec, [facility] [address] [address] Nov, Paranoid schizophrenia F20.0 ; Posttraum atic stress disorder F43.10 ; Attention deficit hyperactivity disorder (ADHD), inattentive type, 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 and Borderline personality disorder F60.3 [facility] [address] [address] Nov, [facility] [address] [address] Oct, Paranoid schizophrenia F20.0 [facility] [address] [address] Oct, Paranoid schizophrenia F20.0 ; Posttraum atic stress disorder F43.10 ; Attention deficit hyperactivity disorder (ADHD), inattentive type, 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 ; Borderline personality disorder F60.3 and Other exterminator (current) drug therapy Z79.899 [facility] [address] [address] Oct, [facility] [address] [address] Oct, [facility] [address] [address] Sep, [facility] [address] [address] Sep, Paranoid schizophrenia F20.0 ; Posttraum atic stress disorder F43.10 ; Attention deficit hyperactivity disorder (ADHD), inattentive type, 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 and Borderline personality disorder F60.3 [facility] [address] [address] Sep, Paranoid schizophrenia F20.0 [facility] [address] [address] Aug, Paranoid schizophrenia F20.0 ; Posttraum atic stress disorder F43.10 ; Attention deficit hyperactivity disorder (ADHD), inattentive type, 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 and Borderline personality disorder F60.3 [facility] [address] [address] Aug, Paranoid schizophrenia F20.0 ; Posttraum atic stress disorder F43.10 ; Attention deficit hyperactivity disorder (ADHD), inattentive type, 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 and Borderline personality disorder F60.3 [facility] [address] [address] Aug, [facility] [address] [address] Jul, Paranoid schizophrenia F20.0 ; Posttraum atic stress disorder F43.10 ; Attention deficit hyperactivity disorder (ADHD), inattentive type, 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 and Borderline personality disorder F60.3 [facility] [address] [address] Jul, Paranoid schizophrenia F20.0 [facility] [address] [address] Jul, Paranoid schizophrenia F20.0 ; Posttraum atic stress disorder F43.10 ; Attention deficit hyperactivity disorder (ADHD), inattentive type, 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 and Borderline personality disorder F60.3 [facility] [address] [address] Jun, Paranoid schizophrenia F20.0 ; Posttraum atic stress disorder F43.10 ; Attention deficit hyperactivity disorder (ADHD), inattentive type, 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 and Borderline personality disorder F60.3 [facility] [address] [place] [id number] [place] [address] May, Other long-term (current) 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 Z 79.899 [facility] [address] [address] May, [facility] [address] [address] May, [facility] [address] [address] May, Attention deficit hyperactivity disorder (ADHD), inattentive type, 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 [facility] [address] [address] May, [facility] [address] [address] May, Attention deficit hyperactivity disorder (ADHD), inattentive type, 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 [facility] [address] [address] May, Paranoid schizophrenia F20.0 ; Posttraum atic stress disorder F43.10 ; Attention deficit hyperactivity disorder (ADHD), inattentive type, 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 and Other long-term (current) 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 Z79.899 [facility] [address] [address] Apr, Paranoid schizophrenia F20.0 [facility] [address] [address] Apr, Paranoid schizophrenia F20.0 ; Posttraum atic stress disorder F43.10 and Attention deficit hyperactivity disorder (ADHD), inattentive type, 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 [facility] [address] [address] February, [facility] [address] [address] February, Paranoid schizophrenia F20.0 ; Posttraum atic stress disorder F43.10 and Attention deficit hyperactivity disorder (ADHD), inattentive type, 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 [facility] [address] [place] [address] February, Paranoid schizophrenia F20.0 ; Posttraum atic stress disorder F43.10 and Attention deficit hyperactivity disorder (ADHD), inattentive type, 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 [facility] [address] [place] [id number] Jan, Paranoid schizophrenia F20.0 ; Posttraum atic stress disorder F43.10 and Attention deficit hyperactivity disorder (ADHD), inattentive type, 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 [facility] [address] [id number] Dec, Dental examination Z01.20 [facility] [address] [id number] Nov, Dental examination Z01.20 [facility] [address] [id number] Nov, Dental examination Z01.20 [facility] [address] [id number] Nov, Dental caries K02.9 [facility] [address] [address] Nov, High risk medication use Z79.899 [facility] [address] [address] Nov, Paranoid schizophrenia F20.0 ; Posttraum atic stress disorder F43.10 ; Attention deficit hyperactivity disorder (ADHD), inattentive type, 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 and Borderline personality disorder in adult F60.3 [facility] [address] [id number] Oct, Dental caries K02.9 [facility] [address] [address] Sep, Paranoid schizophrenia F20.0 ; Posttraum atic stress disorder F43.10 and Attention deficit hyperactivity disorder (ADHD), inattentive type, 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 [facility] [address] [address] Aug, Paranoid schizophrenia F20.0 ; Posttraum atic stress disorder F43.10 and Attention deficit hyperactivity disorder (ADHD), inattentive type, 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 [facility] [address] [facility] [id number] [place] [address] Aug, Strep throat J02.0 and Cough R05 [facility] [address] [address] Aug, [facility] [address] [address] 24 Jul, 2016 Paranoid schizophrenia F20.0 ; Posttraum atic stress disorder F43.10 and Attention deficit hyperactivity disorder (ADHD), inattentive type, 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 [facility] [address] [address] Jul, [facility] [address] [address] 28 Jun, 2016 Paranoid schizophrenia F20.0 ; Posttraum atic stress disorder F43.10 and Attention deficit hyperactivity disorder (ADHD), inattentive type, 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 [facility] [address] [place] [id number] [place] [id number] Jun, Dental examination Z01.20 [facility] [address] [address] Jun, [facility] [address] [address] May, Paranoid schizophrenia F20.0 [facility] [address] [address] May, Paranoid schizophrenia F20.0 ; Posttraum atic stress disorder F43.10 and Attention deficit hyperactivity disorder (ADHD), inattentive type, 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 [facility] [address] [id number] [place] [address] May, [facility] [id number] [place] [address] May, Paranoid schizophrenia F20.0 [facility] [address] [id number] [place] [address] May, [facility] [address] [id number] [place] [address] May, Paranoid schizophrenia F20.0 [facility] [address] [id number] [place] [address] May, Schizoaffective disorder, unspecified F2 5.9 [facility] [id number] [place] [address] May, Schizoaffective disorder, unspecified F2 5.9 [facility] [id number] [place] [address] May, [facility] [address] [id number] [place] [address] May, Paranoid schizophrenia F20.0 [facility] [id number] [place] [address] May, Paranoid schizophrenia F20.0 ; Posttraum atic stress disorder F43.10 and Attention deficit hyperactivity disorder (ADHD), inattentive type, 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 [facility] [id number] [place] [address] Mar, [facility] [id number] [place] [address] Mar, Paranoid schizophrenia F20.0 ; Posttraum atic stress disorder F43.10 and Attention deficit hyperactivity disorder (ADHD), inattentive type, 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 [facility] [address] [address] February, [facility] [address] [address] February, [facility] [address] [address] February, [facility] [address] [address] February, [facility] [address] [address] Jan, Paranoid schizophrenia F20.0 [facility] [address] [id number] Jan, Dental examination Z01.20 [facility] [address] [id number] Jan, Dental caries K02.9 [facility] [address] [id number] Jan, Dental examination Z01.20 [facility] [address] [id number] Dec, Encounter for dental examination Z01.20 [facility] [address] [address] Dec, Paranoid schizophrenia F20.0 [facility] [address] [id number] Dec, Dental examination Z01.20 [facility] [address] [address] Dec, [facility] [address] [address] Dec, Paranoid schizophrenia F20.0 ; Posttraum atic stress disorder F43.10 and Attention deficit hyperactivity disorder (ADHD), inattentive type, 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 [facility] [address] [address] Nov, Schizoaffective disorder, unspecified F2 5.9 [facility] [address] [address] Oct, Paranoid schizophrenia F20.0 [facility] [address] [address] Oct, [facility] [address] [address] Sep, Paranoid schizophrenia F20.0 ; Posttraum atic stress disorder F43.10 and Attention deficit hyperactivity disorder (ADHD), inattentive type, 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 [facility] [address] [address] Sep, [facility] [address] [address] Sep, Paranoid schizophrenia F20.0 ; Posttraum atic stress disorder F43.10 and Attention deficit hyperactivity disorder (ADHD), inattentive type, 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 [facility] [address] [address] Aug, Paranoid schizophrenia F20.0 [facility] [address] [address] Aug, [facility] [address] [address] Aug, Posttraumatic stress disorder F43.10 ; P aranoid schizophrenia F20.0 and Attention deficit hyperactivity disorder (ADHD), inattentive type, 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 [place] [address] [address] Jul, Bipolar disorder, unspecified F31.9 [place] [address] [address] Jul, [facility] [address] [address] Jun, [place] [address] [address] Jun, Schizoaffective disorder, chronic 295.72 ; Posttraumatic stress disorder 309.81 and Attention deficit disorder of childhood without mention of hyperactivity 314.00 [place] [address] [address] May, [place] [address] [address] May, [place] [address] [address] May, Schizoaffective disorder, chronic 295.72 ; Posttraumatic stress disorder 309.81 ; Attention deficit disorder of childhood without mention of hyperactivity 314.00 and Bipolar disorder, unspecified 296.80 [place] [address] [address] Apr, Schizoaffective disorder, chronic 295.72 [place] [address] [address] Apr, [place] [address] [address] Apr, Schizoaffective disorder, chronic 295.72 ; Posttraumatic stress disorder 309.81 and Attention deficit disorder of childhood without mention of hyperactivity 314.00 [place] [address] [address] Mar, Disorganized schizophrenia, 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 [place] [address] [address] Mar, [facility] [address] [id number] [place] [address] Mar, [facility] [address] [id number] [place] [address] Mar, [facility] [address] [id number] [place] [address] Mar, [facility] [id number] [place] [address] February, Schizoaffective disorder, chronic 295.72 [facility] [address] [id number] [place] [address] February, [facility] [id number] [place] [address] February, Attention deficit disorder of childhood without mention of hyperactivity 314.00 ; Posttraumatic stress disorder 309.81 and Schizoaffective disorder, chronic 295.72 [facility] [address] [id number] [place] [address] Jan, [facility] [address] [id number] [place] [address] Jan, [facility] [address] [id number] [place] [address] Jan, [facility] [address] [id number] [place] [address] Dec, [facility] [address] [id number] [place] [address] Dec, [facility] [address] [id number] [place] [address] Dec, [facility] [address] [id number] [place] [address] Dec, [facility] [address] [id number] [place] [address] Dec, [facility] [address] [id number] [place] [address] Dec, [facility] [address] [id number] [place] [address] Dec, [facility] [address] [id number] [place] [address] Dec, [facility] [address] [id number] [place] [address] Nov, 2014 [facility] [address] [id number] [place] [address] Nov, 2014 [facility] [address] [id number] [place] [address] Nov, 2014 [facility] [address] [id number] [place] [address] Nov, 2014 [facility] [address] [id number] [place] [address] Nov, 2014 [facility] [address] [id number] [place] [address] Nov, 2014 [facility] [address] [id number] [place] [address] Nov, [facility] [address] [id number] [place] [address] Nov, [facility] [address] [id number] [place] [address] Nov, [facility] [address] [id number] [place] [address] Nov, [facility] [address] [id number] [place] [address] Oct, [facility] [address] [id number] [place] [address] Oct, [facility] [address] [id number] [place] [address] Oct, [facility] [address] [id number] [place] [address] Oct, [facility] [address] [id number] [place] [address] 15 Oct, 2014 [facility] [address] [id number] [place] [address] Oct, [facility] [address] [id number] [place] [address] Oct, [facility] [address] [id number] [place] [address] 17 Sep, 2014 [facility] [address] [id number] [place] [address] 17 Sep, 2014 [facility] [address] [id number] [place] [address] Sep, [facility] [address] [id number] [place] [address] Sep, [facility] [address] [id number] [place] [address] Aug, [facility] [address] [id number] [place] [address] Aug, [facility] [address] [id number] [place] [address] Aug, [facility] [address] [id number] [place] [address] Aug, [facility] [address] [id number] [place] [address] Aug, [facility] [address] [id number] [place] [address] Aug, [facility] [address] [id number] [place] [address] Jul, [facility] [address] [id number] [place] [address] 29 Jul, 2014 [facility] [address] [id number] [place] [address] Jul, [facility] [address] [id number] [place] [address] Jul, [facility] [address] [id number] [place] [address] 15 Jul, 2013 [facility] [address] [address] [facility] [id number] [place] [address] 15 Jul, 2014 [facility] [address] [id number] [place] [address] 27 Jun, 2013 [facility] [address] [id number] [place] [address] 27 Jun, 2013 [facility] [address] [id number] [place] [address] 26 Jun, 2013 [facility] [address] [facility] [id number] [place] [address] 26 Jun, 2013 [facility] [address] [id number] [place] [address] Jun, 2013 [facility] [address] [id number] [place] [address] 26 Jun, 2013 [facility] [address] [id number] [place] [address] 16 Jun, 2013 [facility] [address] [id number] [place] [address] 16 Jun, 2013 [facility] [address] [id number] [place] [address] 16 Jun, 2013 [facility] [address] [id number] [place] [address] 16 Jun, 2013 [facility] [address] [id number] [place] [address] 04 Jun, 2013 [facility] [address] [id number] [place] [address] May, [facility] [address] [id number] [place] [address] May, [facility] [address] [id number] [place] [address] May, [facility] [address] [id number] [place] [address] May, [facility] [address] [id number] [place] [address] May, [facility] [address] [facility] [id number] [facility] [place] [address] May, [facility] [address] [facility] [id number] [facility] [place] [address] May, [facility] [address] [facility] [id number] [facility] [place] [address] May, [facility] [address] [facility] [id number] [facility] [place] [address] May, [facility] [address] [facility] [id number] [place] [address] May, [facility] [address] [facility] [id number] [place] [address] Apr, [facility] [address] [id number] [place] [address] Apr, [facility] [address] [facility] [id number] [place] [address] Apr, [facility] [address] [facility] [id number] [place] [address] Apr, [facility] [address] [id number] [place] [address] Apr, [facility] [address] [id number] [place] [address] Apr, [facility] [address] [facility] [id number] [place] [address] Apr, [facility] [address] [facility] [id number] [place] [address] Apr, [facility] [address] [facility] [id number] [place] [address] Apr, [facility] [address] [facility] [id number] [place] [address] Apr, [facility] [address] [facility] [id number] [place] [address] Mar, [facility] [address] [facility] [id number] [facility] [place] [address] Mar, [facility] [address] [facility] [id number] [facility] [place] [address] 25 Mar, 2014 [facility] [address] [id number] [place] [address] 24 Mar, 2014 [facility] [address] [facility] [id number] [place] [address] 20 Mar, 2014 [facility] [address] [facility] [id number] [facility] [place] [address] 18 Mar, 2014 [facility] [address] [facility] [id number] [place] [address] 18 Mar, 2014 [facility] [address] [id number] [place] [address] 16 Mar, 2014 [facility] [address] [id number] [place] [address] 16 Mar, 2014 [facility] [address] [id number] [place] [address] Mar, [facility] [address] [id number] [place] [address] Mar, [facility] [address] [id number] [place] [address] Mar, [facility] [address] [id number] [place] [address] Mar, [facility] [address] [facility] [id number] [place] [address] 10 Mar, 2014 [facility] [address] [id number] [place] [address] 09 Mar, 2014 [facility] [address] [id number] [place] [address] 09 Mar, 2014 [facility] [address] [id number] [place] [address] Mar, [facility] [address] [id number] [place] [address] Mar, [facility] [address] [id number] [place] [address] Mar, [facility] [address] [id number] [place] [address] Mar, [facility] [address] [id number] [place] [address] February, [facility] [address] [id number] [place] [address] February, [facility] [address] [facility] [id number] [place] [address] February, [facility] [address] [id number] [place] [address] February, [facility] [address] [id number] [place] [address] February, [facility] [address] [id number] [place] [address] February, [facility] [address] [id number] [place] [address] February, [facility] [address] [id number] [place] [address] February, [facility] [address] [id number] [place] [address] February, [facility] [address] [id number] [place] [address] February, [facility] [address] [id number] [place] [address] February, [facility] [address] [id number] [place] [address] February, [facility] [address] [id number] [place] [address] February, [facility] [address] [id number] [place] [address] February, [facility] [address] [facility] [id number] [place] [address] February, [facility] [address] [id number] [place] [address] February, [facility] [address] [id number] [place] [address] February, [facility] [address] [id number] [place] [address] February, [facility] [address] [id number] [place] [address] February, [facility] [address] [id number] [place] [address] February, [facility] [address] [id number] [place] [address] February, [facility] [address] [id number] [place] [address] Jan, [facility] [address] [id number] [place] [address] Jan, [facility] [address] [id number] [place] [address] Jan, [facility] [address] [id number] [place] [address] Jan, [facility] [address] [id number] [place] [address] Jan, [facility] [address] [id number] [place] [address] Jan, [facility] [address] [id number] [place] [address] Jan, [facility] [address] [id number] [place] [address] Jan, [facility] [address] [id number] [place] [address] Dec, [facility] [address] [id number] [place] [address] 20 Dec, 2013 [facility] [address] [facility] [id number] [facility] [place] [address] 20 Dec, 2013 [facility] [address] [id number] [facility] [place] [address] 19 Dec, 2013 [facility] [address] [id number] [facility] [place] [address] 19 Dec, 2013 [facility] [address] [id number] [facility] [place] [address] 15 Dec, 2013 [facility] [address] [id number] [facility] [place] [address] 15 Dec, 2013 [facility] [address] [id number] [place] [address] 11 Dec, 2013 [facility] [address] [id number] [place] [address] 10 Dec, 2013 [facility] [address] [id number] [place] [address] 10 Dec, 2013 [facility] [address] [id number] [place] [address] 18 Nov, 2013 [facility] [address] [id number] [place] [address] 17 Nov, 2013 [facility] [address] [id number] [place] [address] 17 Nov, 2013 [facility] [address] [id number] [place] [address] Nov, [facility] [address] [id number] [place] [address] 05 Nov, 2013 [facility] [address] [id number] [place] [address] Oct, [facility] [address] [id number] [place] [address] Oct, [facility] [address] [id number] [place] [address] 16 Oct, 2013 [facility] [address] [id number] [place] [address] Sep, [facility] [address] [id number] [place] [address] Sep, [facility] [address] [id number] [place] [address] Sep, [facility] [address] [id number] [place] [address] Sep, [facility] [address] [id number] [place] [address] Aug, [facility] [address] [id number] [place] [address] Aug, [facility] [address] [id number] [place] [address] Jul, [facility] [address] [id number] [place] [address] Jul, [facility] [address] [id number] [place] [address] Jul, [facility] [address] [id number] [place] [address] Jul, [facility] [address] [id number] [place] [address] Jul, [facility] [address] [id number] [place] [address] Jun, [facility] [address] [id number] [place] [address] 25 Jun, 2012 [facility] [address] [id number] [place] [address] 19 Sep, 2012 [facility] [id number] [place] [address] 18 Sep, 2012 [facility] [address] [id number] [place] [address] 16 Sep, 2012 [facility] [address] [id number] [place] [address] Jun, [facility] [address] [id number] [place] [address] Jun, [facility] [address] [id number] [facility] [place] [address] May, [facility] [address] [id number] [place] [address] May, [facility] [address] [id number] [place] [address] Apr, [facility] [address] [facility] [id number] [place] [address] Apr, [facility] [address] [id number] [place] [address] Apr, [facility] [address] [id number] [place] [address] Mar, [facility] [address] [id number] [place] [address] Mar, [facility] [address] [id number] [place] [address] February, [facility] [address] [id number] [place] [address] February, [facility] [address] [id number] [place] [address] February, [facility] [address] [id number] [place] [address] February, [facility] [address] [id number] [place] [address] Jan, [facility] [address] [id number] [place] [address] Jan, [facility] [address] [id number] [place] [address] 16 Jan, 2013 [facility] [address] [id number] [place] [address] Dec, [facility] [address] [id number] [place] [address] Dec, [facility] [address] [id number] [place] [address] Dec, [facility] [address] [id number] [place] [address] Dec, [facility] [address] [id number] [place] [address] Nov, [facility] [address] [id number] [place] [address] Nov, [facility] [address] [id number] [place] [address] Oct, [facility] [address] [id number] [place] [address] Oct, [facility] [address] [id number] [place] [address] Oct, [facility] [address] [id number] [place] [address] Oct, [facility] [address] [id number] [place] [address] Aug, [facility] [address] [id number] [place] [address] Aug, [facility] [address] [id number] [place] [address] Jun, [facility] [address] [id number] [place] [address] May, [facility] [address] [id number] [place] [address] May, [facility] [address] [id number] [place] [address] Apr, [facility] [address] [id number] [place] [address] Apr, [facility] [address] [id number] [place] [address] Apr, [facility] [address] [id number] [place] [address] Mar, [facility] [address] [id number] [place] [address] 19 Mar, 2012 [facility] [address] [id number] [place] [address] 13 Mar, 2012 [facility] [address] [id number] [place] [address] Mar, [facility] [address] [id number] [place] [address] Mar, [facility] [address] [id number] [place] [address] February, [facility] [address] [id number] [place] [address] February, [facility] [address] [id number] [place] [address] February, [facility] [address] [id number] [place] [address] February, [facility] [address] [id number] [place] [address] February, [facility] [address] [id number] [place] [address] February, [facility] [address] [id number] [place] [address] February, [facility] [address] [id number] [place] [address] 25 Jan, 2012 [facility] [address] [id number] [place] [address] 18 Jan, 2012 [facility] [address] [id number] [place] [address] 17 Jan, 2012 [facility] [address] [id number] [place] [address] 13 Jan, 2012 [facility] [address] [id number] [place] [address] 10 Jan, 2012 [facility] [address] [id number] [place] [address] 04 Jan, 2012 [facility] [address] [id number] [facility] [place] [address] 30 Dec, 2011 [facility] [address] [id number] [place] [address] 24 Dec, 2011 [facility] [address] [id number] [facility] [address] 20 Dec, 2011 [facility] [address] [id number] [facility] [place] [address] 13 Dec, 2011 [facility] [address] [id number] [place] [address] 06 Dec, 2011 [facility] [address] [id number] [place] [address] 28 Nov, 2011 [facility] [address] [id number] [facility] [place] [address] Nov, [facility] [address] [id number] [place] [address] Nov, [facility] [address] [id number] [place] [address] 14 Nov, 2011 [facility] [address] [id number] [place] [address] Nov, [facility] [address] [id number] [place] [address] Nov, [facility] [address] [id number] [place] [address] Oct, [facility] [address] [id number] [place] [address] Oct, [facility] [address] [id number] [place] [address] Oct, [facility] [address] [id number] [place] [address] Oct, [facility] [address] [id number] [place] [address] 03 Oct, 2011 [facility] [address] [id number] [place] [address] 27 Sep, 2011 [facility] [address] [id number] [place] [address] Sep, [facility] [address] [id number] [place] [address] 20 Sep, 2011 [facility] [address] [id number] [place] [address] 14 Sep, 2011 [facility] [address] [id number] [place] [address] 14 Sep, 2011 [facility] [address] [id number] [place] [address] 13 Sep, 2011 [facility] [address] [id number] [place] [address] 12 Sep, 2011 [facility] [address] [id number] [place] [address] Sep, [facility] [address] [id number] [place] [address] 05 Sep, 2011 [facility] [address] [id number] [place] [address] 30 Aug, 2011 [facility] [address] [id number] [place] [address] 30 Aug, 2011 [facility] [address] [id number] [place] [address] Aug, [facility] [address] [id number] [place] [address] Aug, [facility] [id number] [place] [address] Aug, [facility] [address] [id number] [place] [address] Aug, [facility] [address] [id number] [place] [address] Aug, [facility] [address] [id number] [place] [address] 16 Aug, 2011 [facility] [address] [id number] [place] [address] Aug, [facility] [address] [id number] [place] [address] Aug, [facility] [address] [id number] [place] [address] Aug, [facility] [address] [id number] [place] [address] Aug, [facility] [address] [id number] [place] [address] Jul, [facility] [address] [id number] [place] [address] Jul, [facility] [address] [id number] [place] [address] Jul, [facility] [address] [id number] [place] [address] Jul, [facility] [address] [id number] [place] [address] Jul, [facility] [address] [id number] [place] [address] Jul, [facility] [address] [id number] [place] [address] Jul, [facility] [address] [id number] [place] [address] Jul, [facility] [address] [id number] [place] [address] Jul, [facility] [address] [id number] [place] [address] Jul, [facility] [address] [id number] [place] [address] Nov, [facility] [address] [id number] [place] [address] Aug, [facility] [address] [id number] [place] [address] Aug, [facility] [address] [id number] [place] [address] Aug, [facility] [address] [id number] [place] [address] Aug, [facility] [address] [id number] [place] [address] Jul, IMMUNIZATIONS No Known Immunizations SOCIAL HISTORY [...] Suicide attempt by hanging 2015 Hospitalization History [facility] 01/30/2018-02/10/20 08 Hospitalization History [facility] 05/04/18-
--- OUTSIDE RECORDS SUMMARY | 2020-04-04 01:52 | XMS REPORT ---
Author Author Kaila Roca Organization [facility] [place] Address [address] [place] [address] Care Team Providers Care Element Burner Name Role Phone BRYAN Roca Unavailable PROBLEMS Type Condition ICD9-CM Code SHZ97-BS Code Onset Dates Condition S tatus SNOMED Code Problem Paranoid schizophrenia F20.0 Active 74131852 Problem Borderline personality disorder F60.3 Active 84717874 Problem Schizoaffective disorder, depressive type F25.1 Active 17584915 Problem Schizoaffective disorder, unspecified F25.9 Active 80898922 Problem Attention deficit hyperactivity disorder (ADHD), inattentive type, 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 93902331 Problem Posttraumatic stress disorder F43.10 Active 67462585 Problem High risk medication use Z79.899 Activ e [id number] ALLERGIES No Information ENCOUNTERS Encounter Location Date Diagnosis [facility] [place] [address] [address] Oct, [facility] [place] [address] [address] Oct, [place] [address] [address] Oct, [facility] [place] [address] [address] Sep, Paranoid schizophrenia F20.0 ; Attention deficit hyperactivity disorder (ADHD), inattentive type, 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 ; Posttraumatic stress disorder F43.10 and Borderline personality disorder F60.3 [facility] [place] [address] [address] Aug, Paranoid schizophrenia F20.0 ; Attention deficit hyperactivity disorder (ADHD), inattentive type, 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 ; Posttraumatic stress disorder F43.10 and Borderline personality disorder F60.3 [facility] [place] [id number] [place] [address] Aug, [facility] [address] [facility] [id number] [address] [place] [address] Aug, Acute bronchitis, unspecifie d organism J20.9 [facility] [place] [address] [address] Aug, [facility] [place] [address] [address] Aug, [facility] [place] [address] [address] Jul, Paranoid schizophrenia F20.0 ; Attention deficit hyperactivity disorder (ADHD), inattentive type, 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 ; Posttraumatic stress disorder F43.10 and Borderline personality disorder F60.3 [facility] [place] [address] [address] Jul, [facility] [place] [address] [address] Jun, Paranoid schizophrenia F20.0 ; Other katherin g term (current) 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 Z79.899 ; Attention deficit hyperactivity disorder (ADHD), inattentive type, 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 ; Posttraumatic stress disorder F43.10 and Borderline personality disorder F60.3 [facility] [place] [address] [address] Jun, Paranoid schizophrenia F20.0 ; Attention deficit hyperactivity disorder (ADHD), inattentive type, 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 ; Posttraumatic stress disorder F43.10 ; Borderline personality disorder F60.3 and Other mcc (current) drug therapy Z79.899 [place] [address] [address] Apr, Paranoid schizophrenia F20.0 ; Posttraum atic stress disorder F43.10 ; Attention deficit hyperactivity disorder (ADHD), inattentive type, 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 and Borderline personality disorder F60.3 [facility] [place] [address] [address] Apr, Paranoid schizophrenia F20.0 [facility] [place] [address] [address] Apr, Paranoid schizophrenia F20.0 ; Posttraum atic stress disorder F43.10 ; Attention deficit hyperactivity disorder (ADHD), inattentive type, 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 and Borderline personality disorder F60.3 [facility] [place] [address] [address] Mar, Paranoid schizophrenia F20.0 [facility] [place] [address] [address] Mar, Paranoid schizophrenia F20.0 ; Posttraum atic stress disorder F43.10 ; Attention deficit hyperactivity disorder (ADHD), inattentive type, 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 and Borderline personality disorder F60.3 [facility] [place] [address] [address] February, Paranoid schizophrenia F20.0 [facility] [place] [address] [address] Jan, Paranoid schizophrenia F20.0 ; Posttraum atic stress disorder F43.10 ; Attention deficit hyperactivity disorder (ADHD), inattentive type, 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 and Borderline personality disorder F60.3 [facility] [place] [address] [address] Dec, Paranoid schizophrenia F20.0 ; Posttraum atic stress disorder F43.10 ; Attention deficit hyperactivity disorder (ADHD), inattentive type, 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 and Borderline personality disorder F60.3 [facility] [place] [address] [address] Dec, Paranoid schizophrenia F20.0 ; Posttraum atic stress disorder F43.10 ; Attention deficit hyperactivity disorder (ADHD), inattentive type, 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 and Borderline personality disorder F60.3 [facility] [place] [address] [address] Oct, Paranoid schizophrenia F20.0 ; Posttraum atic stress disorder F43.10 ; Attention deficit hyperactivity disorder (ADHD), inattentive type, 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 and Borderline personality disorder F60.3 [facility] [place] [address] [address] Oct, Paranoid schizophrenia F20.0 ; Posttraum atic stress disorder F43.10 ; Attention deficit hyperactivity disorder (ADHD), inattentive type, 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 and Borderline personality disorder F60.3 [facility] [place] [id number] [place] [address] Aug, [facility] [place] [address] [address] Aug, Paranoid schizophrenia F20.0 ; Posttraum atic stress disorder F43.10 ; Attention deficit hyperactivity disorder (ADHD), inattentive type, 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 and Borderline personality disorder F60.3 [facility] [address] [facility] [id number] [address] [place] [address] Jul, Dry skin dermatitis L85.3 [facility] [place] [id number] [place] [address] Jul, [facility] [place] [address] [address] Jul, Paranoid schizophrenia F20.0 [facility] [place] [id number] [place] [address] May, Paranoid schizophrenia F20.0 ; Posttraum atic stress disorder F43.10 ; Attention deficit hyperactivity disorder (ADHD), inattentive type, 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 and Borderline personality disorder F60.3 [facility] [place] [id number] [place] [address] May, [facility] [place] [address] [address] May, Paranoid schizophrenia F20.0 [facility] [place] [address] [address] May, Paranoid schizophrenia F20.0 ; Posttraum atic stress disorder F43.10 ; Attention deficit hyperactivity disorder (ADHD), inattentive type, 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 and Borderline personality disorder F60.3 [facility] [place] [address] [address] Apr, [facility] [place] [address] [address] Apr, Paranoid schizophrenia F20.0 ; Posttraum atic stress disorder F43.10 ; Attention deficit hyperactivity disorder (ADHD), inattentive type, 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 and Borderline personality disorder F60.3 [facility] [place] [address] [address] Apr, [facility] [place] [address] [address] Apr, Schizoaffective disorder, depressive typ e F25.1 and Borderline personality disorder F60.3 [facility] [place] [address] [address] Apr, Paranoid schizophrenia F20.0 ; Posttraum atic stress disorder F43.10 ; Attention deficit hyperactivity disorder (ADHD), inattentive type, 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 and Borderline personality disorder F60.3 [facility] [place] [address] [address] Apr, [facility] [place] [address] [address] Apr, Paranoid schizophrenia F20.0 ; Posttraum atic stress disorder F43.10 ; Attention deficit hyperactivity disorder (ADHD), inattentive type, 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 and Borderline personality disorder F60.3 [facility] [place] [address] [address] Apr, [facility] [place] [address] [address] Mar, Paranoid schizophrenia F20.0 [facility] [place] [address] [address] Mar, [facility] [place] [address] [address] Mar, Paranoid schizophrenia F20.0 ; Posttraum atic stress disorder F43.10 ; Attention deficit hyperactivity disorder (ADHD), inattentive type, 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 and Borderline personality disorder F60.3 [facility] [place] [address] [address] February, Paranoid schizophrenia F20.0 [facility] [place] [address] [address] February, Paranoid schizophrenia F20.0 ; Posttraum atic stress disorder F43.10 ; Attention deficit hyperactivity disorder (ADHD), inattentive type, 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 and Borderline personality disorder F60.3 [facility] [place] [address] [address] February, Paranoid schizophrenia F20.0 ; Posttraum atic stress disorder F43.10 ; Attention deficit hyperactivity disorder (ADHD), inattentive type, 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 and Borderline personality disorder F60.3 [facility] [place] [address] [address] February, [facility] [place] [address] [address] February, Paranoid schizophrenia F20.0 [facility] [place] [address] [address] February, Paranoid schizophrenia F20.0 [facility] [place] [address] [address] February, Paranoid schizophrenia F20.0 ; Posttraum atic stress disorder F43.10 ; Attention deficit hyperactivity disorder (ADHD), inattentive type, 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 and Borderline personality disorder F60.3 [facility] [place] [address] [address] Jan, Paranoid schizophrenia F20.0 ; Posttraum atic stress disorder F43.10 ; Attention deficit hyperactivity disorder (ADHD), inattentive type, 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 and Borderline personality disorder F60.3 [facility] [place] [address] [address] Jan, Paranoid schizophrenia F20.0 [facility] [place] [address] [address] Jan, Paranoid schizophrenia F20.0 [facility] [place] [address] [address] Jan, Paranoid schizophrenia F20.0 ; Posttraum atic stress disorder F43.10 ; Attention deficit hyperactivity disorder (ADHD), inattentive type, 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 and Borderline personality disorder F60.3 [facility] [place] [address] [address] Dec, [facility] [place] [address] [address] Nov, Paranoid schizophrenia F20.0 ; Posttraum atic stress disorder F43.10 ; Attention deficit hyperactivity disorder (ADHD), inattentive type, 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 and Borderline personality disorder F60.3 [facility] [place] [address] [address] Nov, [facility] [place] [address] [address] Oct, Paranoid schizophrenia F20.0 [facility] [place] [address] [address] Oct, Paranoid schizophrenia F20.0 ; Posttraum atic stress disorder F43.10 ; Attention deficit hyperactivity disorder (ADHD), inattentive type, 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 ; Borderline personality disorder F60.3 and Other mcc (current) drug therapy Z79.899 [facility] [place] [address] [address] Oct, [facility] [place] [address] [address] Oct, [facility] [place] [address] [address] Sep, [facility] [place] [address] [address] Sep, Paranoid schizophrenia F20.0 ; Posttraum atic stress disorder F43.10 ; Attention deficit hyperactivity disorder (ADHD), inattentive type, 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 and Borderline personality disorder F60.3 [facility] [place] [address] [address] Sep, Paranoid schizophrenia F20.0 [facility] [place] [address] [address] Aug, Paranoid schizophrenia F20.0 ; Posttraum atic stress disorder F43.10 ; Attention deficit hyperactivity disorder (ADHD), inattentive type, 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 and Borderline personality disorder F60.3 [facility] [place] [address] [address] Aug, Paranoid schizophrenia F20.0 ; Posttraum atic stress disorder F43.10 ; Attention deficit hyperactivity disorder (ADHD), inattentive type, 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 and Borderline personality disorder F60.3 [facility] [place] [address] [address] Aug, [facility] [place] [address] [address] Jul, Paranoid schizophrenia F20.0 ; Posttraum atic stress disorder F43.10 ; Attention deficit hyperactivity disorder (ADHD), inattentive type, 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 and Borderline personality disorder F60.3 [facility] [place] [address] [address] Jul, Paranoid schizophrenia F20.0 [facility] [place] [address] [place] [id number] Jul, Paranoid schizophrenia F20.0 ; Posttraum atic stress disorder F43.10 ; Attention deficit hyperactivity disorder (ADHD), inattentive type, 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 and Borderline personality disorder F60.3 [facility] [place] [address] [address] Jun, Paranoid schizophrenia F20.0 ; Posttraum atic stress disorder F43.10 ; Attention deficit hyperactivity disorder (ADHD), inattentive type, 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 and Borderline personality disorder F60.3 [facility] [place] [id number] [place] [address] May, Other mcc (current) drug therapy Z 79.899 [facility] [place] [address] [address] May, [facility] [place] [address] [address] May, [facility] [place] [address] [address] May, Attention deficit hyperactivity disorder (ADHD), inattentive type, 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 [facility] [place] [address] [address] May, [facility] [place] [address] [address] May, Attention deficit hyperactivity disorder (ADHD), inattentive type, 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 [facility] [place] [address] [address] May, Paranoid schizophrenia F20.0 ; Posttraum atic stress disorder F43.10 ; Attention deficit hyperactivity disorder (ADHD), inattentive type, 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 and 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 Z79.899 [facility] [place] [address] [address] Apr, Paranoid schizophrenia F20.0 [facility] [place] [address] [address] Apr, Paranoid schizophrenia F20.0 ; Posttraum atic stress disorder F43.10 and Attention deficit hyperactivity disorder (ADHD), inattentive type, 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 [facility] [place] [address] [address] February, [facility] [place] [address] [address] February, Paranoid schizophrenia F20.0 ; Posttraum atic stress disorder F43.10 and Attention deficit hyperactivity disorder (ADHD), inattentive type, 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 [facility] [place] [address] [address] February, Paranoid schizophrenia F20.0 ; Posttraum atic stress disorder F43.10 and Attention deficit hyperactivity disorder (ADHD), inattentive type, 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 [facility] [place] [address] [address] Jan, Paranoid schizophrenia F20.0 ; Posttraum atic stress disorder F43.10 and Attention deficit hyperactivity disorder (ADHD), inattentive type, 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 [facility] [address] [id number] Dec, Dental examination Z01.20 [facility] [address] [id number] Nov, Dental examination Z01.20 [facility] [address] [id number] Nov, Dental examination Z01.20 [facility] [address] [id number] Nov, Dental caries K02.9 [facility] [place] [address] [address] Nov, High risk medication use Z79.899 [facility] [place] [address] [address] Nov, Paranoid schizophrenia F20.0 ; Posttraum atic stress disorder F43.10 ; Attention deficit hyperactivity disorder (ADHD), inattentive type, 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 and Borderline personality disorder in adult F60.3 [facility] [address] [id number] Oct, Dental caries K02.9 [facility] [place] [address] [address] Sep, Paranoid schizophrenia F20.0 ; Posttraum atic stress disorder F43.10 and Attention deficit hyperactivity disorder (ADHD), inattentive type, 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 [facility] [place] [address] [address] Aug, Paranoid schizophrenia F20.0 ; Posttraum atic stress disorder F43.10 and Attention deficit hyperactivity disorder (ADHD), inattentive type, 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 [facility] [address] [facility] [id number] [address] [place] [address] Aug, Strep throat J02.0 and Cough R05 [facility] [place] [address] [address] Aug, [facility] [place] [address] [address] Jul, Paranoid schizophrenia F20.0 ; Posttraum atic stress disorder F43.10 and Attention deficit hyperactivity disorder (ADHD), inattentive type, 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 [facility] [place] [address] [address] Jul, [facility] [place] [address] [address] 28 Jun, 2016 Paranoid schizophrenia F20.0 ; Posttraum atic stress disorder F43.10 and Attention deficit hyperactivity disorder (ADHD), inattentive type, 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 [facility] [id number] [place] [id number] Jun, Dental examination Z01.20 [facility] [place] [address] [address] Jun, [facility] [place] [address] [address] May, Paranoid schizophrenia F20.0 [facility] [place] [address] [address] May, Paranoid schizophrenia F20.0 ; Posttraum atic stress disorder F43.10 and Attention deficit hyperactivity disorder (ADHD), inattentive type, 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 [facility] [place] [id number] [place] [address] May, [facility] [place] [id number] [place] [address] May, Paranoid schizophrenia F20.0 [facility] [place] [id number] [place] [address] May, [facility] [place] [address] [address] May, Paranoid schizophrenia F20.0 [facility] [place] [address] [address] May, Schizoaffective disorder, unspecified F2 5.9 [facility] [place] [id number] [place] [address] May, Schizoaffective disorder, unspecified F2 5.9 [facility] [place] [id number] [place] [address] May, [facility] [place] [address] [address] May, Paranoid schizophrenia F20.0 [facility] [place] [id number] [place] [id number] May, Paranoid schizophrenia F20.0 ; Posttraum atic stress disorder F43.10 and Attention deficit hyperactivity disorder (ADHD), inattentive type, 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 [facility] [place] [id number] [place] [address] Mar, [facility] [place] [id number] [place] [address] Mar, Paranoid schizophrenia F20.0 ; Posttraum atic stress disorder F43.10 and Attention deficit hyperactivity disorder (ADHD), inattentive type, 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 [facility] [place] [id number] [place] [address] Mar, Paranoid schizophrenia F20.0 [facility] [place] [address] [address] Mar, Paranoid schizophrenia F20.0 ; Attention deficit hyperactivity disorder (ADHD), inattentive type, 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 and Posttraumatic stress disorder F43.10 [facility] [place] [address] [address] Mar, [facility] [place] [address] [address] Mar, Paranoid schizophrenia F20.0 ; Posttraum atic stress disorder F43.10 and Attention deficit hyperactivity disorder (ADHD), inattentive type, 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 [facility] [place] [address] [address] February, [facility] [place] [address] [address] February, [facility] [place] [address] [address] February, [facility] [place] [address] [address] February, [facility] [place] [address] [address] Jan, Paranoid schizophrenia F20.0 [facility] [address] [id number] Jan, Dental examination Z01.20 [facility] [address] [id number] Jan, Dental caries K02.9 [facility] [address] [id number] Jan, Dental examination Z01.20 [facility] [address] [id number] Dec, Encounter for dental examination Z01.20 [facility] [place] [address] [address] Dec, Paranoid schizophrenia F20.0 [facility] [address] [id number] [place] [id number] 15 Dec, 2015 Dental examination Z01.20 [facility] [place] [address] [address] Dec, [facility] [place] [address] [address] Dec, Paranoid schizophrenia F20.0 ; Posttraum atic stress disorder F43.10 and Attention deficit hyperactivity disorder (ADHD), inattentive type, 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 [facility] [place] [address] [address] Nov, Schizoaffective disorder, unspecified F2 5.9 [facility] [place] [address] [address] Oct, Paranoid schizophrenia F20.0 [facility] [place] [address] [address] Oct, [facility] [place] [address] [address] Sep, Paranoid schizophrenia F20.0 ; Posttraum atic stress disorder F43.10 and Attention deficit hyperactivity disorder (ADHD), inattentive type, 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 [facility] [place] [address] [address] Sep, [facility] [place] [address] [address] Sep, Paranoid schizophrenia F20.0 ; Posttraum atic stress disorder F43.10 and Attention deficit hyperactivity disorder (ADHD), inattentive type, 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 [facility] [place] [address] [address] Aug, Paranoid schizophrenia F20.0 [facility] [place] [address] [address] Aug, [facility] [place] [address] [address] Aug, Posttraumatic stress disorder F43.10 ; P aranoid schizophrenia F20.0 and Attention deficit hyperactivity disorder (ADHD), inattentive type, 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 [place] [address] [address] Jul, Bipolar disorder, unspecified F31.9 [place] [address] [address] Jul, [facility] [place] [address] [address] Jun, [place] [address] [address] Jun, Schizoaffective disorder, chronic 295.72 ; Posttraumatic stress disorder 309.81 and Attention deficit disorder of childhood without mention of hyperactivity 314.00 [place] [address] [address] May, [place] [address] [address] May, [facility] [place] [address] [address] May, Schizoaffective disorder, chronic 295.72 ; Posttraumatic stress disorder 309.81 ; Attention deficit disorder of childhood without mention of hyperactivity 314.00 and Bipolar disorder, unspecified 296.80 [place] [address] [address] Apr, Schizoaffective disorder, chronic 295.72 [facility] [place] [address] [address] Apr, [facility] [place] [address] [address] Apr, Schizoaffective disorder, chronic 295.72 ; Posttraumatic stress disorder 309.81 and Attention deficit disorder of childhood without mention of hyperactivity 314.00 [place] [address] [address] Mar, Disorganized schizophrenia, 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 [id number] [place] [address] Mar, [facility] [id number] [place] [address] Mar, [facility] [id number] [place] [address] February, Schizoaffective disorder, chronic 295.72 [facility] [place] [id number] [place] [address] February, [facility] [id number] [place] [address] February, Attention deficit disorder of childhood without mention of hyperactivity 314.00 ; Posttraumatic stress disorder 309.81 and Schizoaffective disorder, chronic 295.72 [facility] [place] [id number] [place] [address] 29 Jan, 2015 [facility] [id number] [place] [address] 14 Jan, 2015 [facility] [id number] [place] [address] Jan, [facility] [id number] [place] [address] Dec, [facility] [id number] [place] [address] Dec, [facility] [id number] [place] [address] Dec, [facility] [id number] [place] [address] 23 Dec, 2014 [facility] [id number] [place] [address] Dec, [facility] [id number] [place] [address] Dec, [facility] [address] [facility] [id number] [facility] [place] [address] Dec, [facility] [address] [id number] [facility] [place] [address] Dec, [facility] [address] [id number] [place] [address] Nov, [facility] [address] [id number] [facility] [place] [address] Nov, [facility] [address] [id number] [facility] [place] [address] Nov, [facility] [address] [id number] [place] [address] Nov, [facility] [address] [id number] [place] [address] Nov, [facility] [address] [id number] [place] [address] Nov, 2014 [facility] [address] [id number] [place] [address] Nov, [facility] [address] [id number] [place] [address] Nov, [facility] [address] [id number] [place] [address] Nov, [facility] [address] [id number] [place] [address] Nov, [facility] [address] [id number] [place] [address] Oct, [facility] [address] [id number] [place] [address] Oct, [facility] [address] [id number] [place] [address] Oct, [facility] [address] [id number] [place] [address] Oct, [facility] [address] [id number] [place] [address] 15 Oct, 2014 [facility] [address] [id number] [place] [address] Oct, [facility] [address] [id number] [place] [address] Oct, [facility] [address] [id number] [place] [address] 17 Sep, 2014 [facility] [address] [id number] [place] [address] Sep, [facility] [address] [id number] [place] [address] Sep, [facility] [address] [id number] [place] [address] Sep, [facility] [address] [id number] [place] [address] Aug, [facility] [address] [id number] [place] [address] Aug, [facility] [address] [id number] [place] [address] Aug, [facility] [address] [id number] [place] [address] Aug, [facility] [address] [id number] [place] [address] Aug, [facility] [address] [id number] [place] [address] Aug, [facility] [address] [id number] [place] [address] 29 Jul, 2014 [facility] [address] [id number] [place] [address] 29 Jul, 2014 [facility] [address] [id number] [place] [address] 24 Jul, 2014 [facility] [address] [id number] [place] [address] 24 Jul, 2014 [facility] [address] [id number] [place] [address] 15 Jul, 2014 [facility] [address] [facility] [id number] [place] [address] 15 Jul, 2014 [facility] [address] [id number] [place] [address] 27 Jun, 2013 [facility] [address] [id number] [place] [address] 27 Jun, 2013 [facility] [address] [facility] [id number] [place] [address] 26 Jun, 2013 [facility] [address] [facility] [id number] [place] [address] Jun, 2013 [facility] [address] [id number] [place] [address] Jun, 2013 [facility] [address] [id number] [place] [address] 26 Jun, 2013 [facility] [address] [facility] [id number] [place] [address] 16 Jun, 2013 [facility] [address] [id number] [place] [address] 16 Jun, 2013 [facility] [address] [id number] [place] [address] 16 Jun, 2013 [facility] [address] [id number] [place] [address] 16 Jun, 2013 [facility] [address] [facility] [id number] [place] [address] 04 Jun, 2013 [facility] [address] [id number] [place] [address] May, [facility] [address] [facility] [id number] [place] [address] May, [facility] [address] [id number] [place] [address] May, [facility] [address] [id number] [place] [address] May, [facility] [address] [id number] [facility] [place] [address] May, [facility] [address] [facility] [id number] [place] [address] May, [facility] [address] [id number] [facility] [place] [address] May, [facility] [address] [facility] [id number] [place] [address] May, [facility] [address] [id number] [place] [address] May, [facility] [address] [id number] [place] [address] May, [facility] [address] [id number] [place] [address] Apr, [facility] [address] [id number] [place] [address] Apr, [facility] [address] [facility] [id number] [place] [address] Apr, [facility] [address] [id number] [place] [address] Apr, [facility] [address] [id number] [place] [address] Apr, [facility] [address] [id number] [place] [address] Apr, [facility] [address] [facility] [id number] [place] [address] Apr, [facility] [address] [id number] [place] [address] Apr, [facility] [address] [id number] [place] [address] Apr, [facility] [address] [id number] [place] [address] Apr, [facility] [address] [facility] [id number] [place] [address] Mar, [facility] [address] [id number] [place] [address] Mar, [facility] [address] [id number] [place] [address] Mar, [facility] [address] [id number] [place] [address] 24 Mar, 2014 [facility] [address] [id number] [place] [address] 20 Mar, 2014 [facility] [address] [id number] [place] [address] Mar, [facility] [address] [id number] [place] [address] Mar, [facility] [address] [id number] [place] [address] 16 Mar, 2014 [facility] [address] [id number] [place] [address] 16 Mar, 2014 [facility] [address] [id number] [place] [address] Mar, [facility] [address] [id number] [place] [address] Mar, [facility] [address] [id number] [place] [address] Mar, [facility] [address] [id number] [place] [address] Mar, [facility] [address] [id number] [place] [address] 10 Mar, 2014 [facility] [address] [id number] [place] [address] 09 Mar, 2014 [facility] [address] [id number] [place] [address] 09 Mar, 2014 [facility] [address] [id number] [place] [address] Mar, [facility] [address] [id number] [place] [address] Mar, [facility] [address] [facility] [id number] [facility] [place] [address] Mar, [facility] [address] [facility] [id number] [place] [address] Mar, [facility] [address] [id number] [place] [address] February, [facility] [address] [id number] [facility] [place] [address] February, [facility] [address] [id number] [place] [address] February, [facility] [address] [id number] [place] [address] February, [facility] [address] [id number] [place] [address] February, [facility] [address] [facility] [id number] [place] [address] February, [facility] [address] [id number] [place] [address] February, [facility] [address] [id number] [place] [address] February, [facility] [address] [id number] [place] [address] February, [facility] [address] [facility] [id number] [place] [address] February, [facility] [address] [id number] [place] [address] February, [facility] [address] [id number] [place] [address] February, [facility] [address] [id number] [place] [address] February, [facility] [address] [id number] [place] [address] February, [facility] [address] [id number] [place] [address] February, [facility] [address] [id number] [place] [address] February, [facility] [address] [id number] [place] [address] February, [facility] [address] [id number] [place] [address] February, [facility] [address] [id number] [place] [address] February, [facility] [address] [id number] [place] [address] February, [facility] [address] [id number] [place] [address] February, [facility] [address] [id number] [place] [address] Jan, [facility] [address] [id number] [place] [address] Jan, [facility] [address] [id number] [place] [address] Jan, [facility] [address] [id number] [place] [address] Jan, [facility] [address] [id number] [place] [address] Jan, [facility] [address] [id number] [place] [address] Jan, [facility] [address] [id number] [place] [address] Jan, [facility] [address] [id number] [place] [address] Jan, [facility] [address] [id number] [place] [address] Dec, [facility] [address] [id number] [place] [address] Dec, [facility] [address] [id number] [place] [address] 20 Dec, 2013 [facility] [address] [id number] [place] [address] 19 Dec, 2013 [facility] [address] [id number] [place] [address] 19 Dec, 2013 [facility] [address] [id number] [place] [address] 15 Dec, 2013 [facility] [address] [id number] [place] [address] 15 Dec, 2013 [facility] [address] [id number] [place] [address] 11 Dec, 2013 [facility] [address] [id number] [place] [address] Dec, [facility] [address] [id number] [place] [address] 10 Dec, 2013 [facility] [address] [id number] [place] [address] 18 Nov, 2013 [facility] [address] [id number] [place] [address] Nov, [facility] [address] [id number] [place] [address] Nov, [facility] [address] [id number] [place] [address] Nov, [facility] [address] [id number] [place] [address] Nov, [facility] [address] [id number] [place] [address] Oct, [facility] [address] [id number] [place] [address] Oct, [facility] [address] [id number] [place] [address] Oct, [facility] [address] [id number] [place] [address] Sep, [facility] [address] [id number] [place] [address] Sep, [facility] [address] [id number] [place] [address] Sep, [facility] [address] [id number] [place] [address] Sep, [facility] [address] [id number] [place] [address] Aug, [facility] [address] [id number] [place] [address] Aug, [facility] [address] [id number] [place] [address] Jul, [facility] [address] [id number] [place] [address] Jul, [facility] [address] [id number] [place] [address] Jul, [facility] [address] [id number] [place] [address] Jul, [facility] [address] [id number] [place] [address] Jul, [facility] [address] [id number] [place] [address] Jun, 2012 [facility] [address] [id number] [place] [address] 25 Jun, 2012 [facility] [address] [id number] [place] [address] 19 Sep, 2012 [facility] [address] [id number] [place] [address] 18 Sep, 2012 [facility] [address] [id number] [place] [address] 16 Jun, 2012 [facility] [address] [id number] [facility] [place] [address] Jun, [facility] [address] [id number] [place] [address] Jun, [facility] [address] [id number] [place] [address] May, [facility] [address] [id number] [place] [address] May, [facility] [address] [id number] [place] [address] Apr, [facility] [address] [id number] [place] [address] Apr, [facility] [address] [id number] [place] [address] Apr, [facility] [address] [id number] [place] [address] Mar, [facility] [address] [id number] [place] [address] Mar, [facility] [address] [id number] [place] [address] February, [facility] [address] [id number] [place] [address] February, [facility] [address] [id number] [place] [address] February, [facility] [address] [id number] [place] [address] February, [facility] [address] [id number] [place] [address] Jan, [facility] [address] [id number] [place] [address] 17 Jan, 2013 [facility] [address] [id number] [place] [address] 16 Jan, 2013 [facility] [address] [id number] [place] [address] Dec, [facility] [address] [id number] [place] [address] Dec, [facility] [address] [id number] [place] [address] Dec, [facility] [address] [id number] [place] [address] 08 Dec, 2012 [facility] [address] [id number] [place] [address] Nov, [facility] [address] [id number] [place] [address] Nov, [facility] [address] [id number] [place] [address] Oct, [facility] [address] [id number] [place] [address] Oct, [facility] [id number] [place] [address] Oct, [facility] [address] [id number] [place] [address] Oct, [facility] [address] [id number] [place] [address] Aug, [facility] [address] [id number] [place] [address] Aug, [facility] [id number] [place] [address] Jun, [facility] [address] [id number] [place] [address] May, [facility] [address] [id number] [place] [address] May, [facility] [address] [id number] [place] [address] Apr, [facility] [address] [id number] [place] [address] Apr, [facility] [address] [id number] [place] [address] 05 Apr, 2012 [facility] [id number] [facility] [address] Mar, [facility] [address] [id number] [place] [address] Mar, [facility] [address] [id number] [place] [address] Mar, [facility] [address] [id number] [place] [address] Mar, [facility] [address] [id number] [place] [address] Mar, [facility] [address] [id number] [place] [address] February, [facility] [address] [id number] [place] [address] February, [facility] [address] [id number] [place] [address] February, [facility] [address] [id number] [place] [address] February, [facility] [address] [id number] [place] [address] February, [facility] [address] [id number] [place] [address] February, [facility] [address] [id number] [place] [address] February, [facility] [address] [id number] [place] [address] Jan, [facility] [address] [id number] [place] [address] 18 Jan, 2012 [facility] [address] [id number] [place] [address] 17 Jan, 2012 [facility] [address] [id number] [place] [address] 13 Jan, 2012 [facility] [address] [id number] [place] [address] 10 Jan, 2012 [facility] [address] [id number] [place] [address] 04 Jan, 2012 [facility] [address] [id number] [place] [address] 30 Dec, 2011 [facility] [address] [id number] [place] [address] 24 Dec, 2011 [facility] [address] [id number] [place] [address] 20 Dec, 2011 [facility] [address] [id number] [place] [address] 13 Dec, 2011 [facility] [address] [id number] [place] [address] Dec, [facility] [address] [id number] [place] [address] Nov, [facility] [address] [id number] [place] [address] Nov, [facility] [address] [id number] [place] [address] Nov, [facility] [address] [id number] [place] [address] 14 Nov, 2011 [facility] [address] [id number] [place] [address] Nov, [facility] [address] [id number] [place] [address] Nov, [facility] [address] [id number] [place] [address] Oct, [facility] [address] [id number] [place] [address] Oct, [facility] [address] [id number] [place] [address] Oct, [facility] [address] [id number] [place] [address] Oct, [facility] [address] [id number] [place] [address] Oct, [facility] [address] [id number] [place] [address] Sep, [facility] [address] [id number] [place] [address] Sep, [facility] [address] [id number] [place] [address] Sep, [facility] [address] [id number] [place] [address] Sep, [facility] [address] [id number] [place] [address] Sep, [facility] [address] [id number] [place] [address] Sep, [facility] [address] [id number] [place] [address] Sep, [facility] [address] [id number] [place] [address] Sep, [facility] [address] [id number] [place] [address] Sep, [facility] [address] [id number] [place] [address] Aug, [facility] [address] [id number] [place] [address] Aug, [facility] [address] [id number] [place] [address] Aug, [facility] [address] [id number] [place] [address] Aug, [facility] [address] [id number] [place] [address] Aug, [facility] [address] [id number] [place] [address] Aug, [facility] [address] [id number] [place] [address] 16 Aug, 2011 [facility] [address] [id number] [place] [address] 16 Aug, 2011 [facility] [address] [id number] [place] [address] Aug, [facility] [address] [id number] [place] [address] Aug, [facility] [address] [id number] [place] [address] Aug, [facility] [address] [id number] [place] [address] Aug, [facility] [address] [id number] [place] [address] Jul, [facility] [address] [id number] [place] [address] Jul, [facility] [address] [id number] [place] [address] Jul, [facility] [address] [id number] [place] [address] Jul, [facility] [address] [id number] [place] [address] Jul, [facility] [address] [id number] [place] [address] Jul, [facility] [address] [id number] [place] [address] Jul, [facility] [address] [id number] [place] [address] Jul, [facility] [address] [id number] [place] [address] Jul, [facility] [address] [id number] [place] [address] Jul, [facility] [address] [id number] [place] [address] Nov, [facility] [place] [address] [id number] [place] [address] Aug, [facility] [place] [address] [id number] [place] [address] Aug, [facility] [place] [address] [id number] [place] [address] Aug, [facility] [place] [address] [id number] [place] [address] Aug, [facility] [place] [address] [id number] [place] [address] Jul, IMMUNIZATIONS No Known Immunizations SOCIAL HISTORY [...] Suicide attempt by hanging 2015 Hospitalization History [facility] 01/30/2018-02/10/20 08 Hospitalization History [facility] 05/04/18-
--- OUTSIDE RECORDS SUMMARY | 2020-04-04 01:52 | XMS REPORT ---
Author Author Kaila Roca Organization [facility] Address [address] [place] [address] Care Team Providers Care Hot Baller Name Role Phone BRYAN Roca Unavailable PROBLEMS Type Condition ICD9-CM Code IJP70-US Code Onset Dates Condition S tatus SNOMED Code Problem Paranoid schizophrenia F20.0 Active 90348856 Problem Borderline personality disorder F60.3 Active 17489260 Problem Schizoaffective disorder, depressive type F25.1 Active 95060259 Problem Schizoaffective disorder, unspecified F25.9 Active 98373046 Problem Attention deficit hyperactivity disorder (ADHD), inattentive type, 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 27838451 Problem Posttraumatic stress disorder F43.10 Active 21199571 Problem High risk medication use Z79.899 Activ e [id number] ALLERGIES No Information ENCOUNTERS Encounter Location Date Diagnosis [facility] [address] [address] Oct, [facility] [address] [address] Oct, [place] [address] [address] Oct, [facility] [address] [address] Sep, Paranoid schizophrenia F20.0 ; Attention deficit hyperactivity disorder (ADHD), inattentive type, 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 ; Posttraumatic stress disorder F43.10 and Borderline personality disorder F60.3 [facility] [address] [address] Aug, Paranoid schizophrenia F20.0 ; Attention deficit hyperactivity disorder (ADHD), inattentive type, 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 ; Posttraumatic stress disorder F43.10 and Borderline personality disorder F60.3 [facility] [address] [place] [id number] [place] [address] Aug, [facility] [address] [facility] [id number] [address] [place] [address] Aug, Acute bronchitis, unspecifie d organism J20.9 [facility] [address] [address] Aug, [facility] [address] [address] Aug, [facility] [address] [address] Jul, Paranoid schizophrenia F20.0 ; Attention deficit hyperactivity disorder (ADHD), inattentive type, 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 ; Posttraumatic stress disorder F43.10 and Borderline personality disorder F60.3 [facility] [address] [address] Jul, [facility] [address] [address] Jun, Paranoid schizophrenia F20.0 ; Other katherin g term (current) 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 Z79.899 ; Attention deficit hyperactivity disorder (ADHD), inattentive type, 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 ; Posttraumatic stress disorder F43.10 and Borderline personality disorder F60.3 [facility] [address] [address] Jun, Paranoid schizophrenia F20.0 ; Attention deficit hyperactivity disorder (ADHD), inattentive type, 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 ; Posttraumatic stress disorder F43.10 ; Borderline personality disorder F60.3 and Other longterm (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 Z79.899 [place] [address] [address] Apr, Paranoid schizophrenia F20.0 ; Posttraum atic stress disorder F43.10 ; Attention deficit hyperactivity disorder (ADHD), inattentive type, 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 and Borderline personality disorder F60.3 [facility] [address] [address] Apr, Paranoid schizophrenia F20.0 [facility] [address] [address] Apr, Paranoid schizophrenia F20.0 ; Posttraum atic stress disorder F43.10 ; Attention deficit hyperactivity disorder (ADHD), inattentive type, 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 and Borderline personality disorder F60.3 [facility] [address] [address] Mar, Paranoid schizophrenia F20.0 [facility] [address] [address] Mar, Paranoid schizophrenia F20.0 ; Posttraum atic stress disorder F43.10 ; Attention deficit hyperactivity disorder (ADHD), inattentive type, 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 and Borderline personality disorder F60.3 [facility] [address] [address] February, Paranoid schizophrenia F20.0 [facility] [address] [address] Jan, Paranoid schizophrenia F20.0 ; Posttraum atic stress disorder F43.10 ; Attention deficit hyperactivity disorder (ADHD), inattentive type, 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 and Borderline personality disorder F60.3 [facility] [address] [address] Dec, Paranoid schizophrenia F20.0 ; Posttraum atic stress disorder F43.10 ; Attention deficit hyperactivity disorder (ADHD), inattentive type, 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 and Borderline personality disorder F60.3 [facility] [address] [address] Dec, Paranoid schizophrenia F20.0 ; Posttraum atic stress disorder F43.10 ; Attention deficit hyperactivity disorder (ADHD), inattentive type, 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 and Borderline personality disorder F60.3 [facility] [address] [address] Oct, Paranoid schizophrenia F20.0 ; Posttraum atic stress disorder F43.10 ; Attention deficit hyperactivity disorder (ADHD), inattentive type, 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 and Borderline personality disorder F60.3 [facility] [address] [address] Oct, Paranoid schizophrenia F20.0 ; Posttraum atic stress disorder F43.10 ; Attention deficit hyperactivity disorder (ADHD), inattentive type, 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 and Borderline personality disorder F60.3 [facility] [address] [place] [id number] [place] [address] Aug, [facility] [address] [address] Aug, Paranoid schizophrenia F20.0 ; Posttraum atic stress disorder F43.10 ; Attention deficit hyperactivity disorder (ADHD), inattentive type, 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 and Borderline personality disorder F60.3 [facility] [address] [facility] [id number] [address] [place] [address] Jul, Dry skin dermatitis L85.3 [facility] [address] [id number] [place] [address] Jul, [facility] [address] [address] Jul, Paranoid schizophrenia F20.0 [facility] [address] [place] [id number] [place] [address] May, Paranoid schizophrenia F20.0 ; Posttraum atic stress disorder F43.10 ; Attention deficit hyperactivity disorder (ADHD), inattentive type, 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 and Borderline personality disorder F60.3 [facility] [address] [address] [id number] [place] [address] May, [facility] [address] [address] May, Paranoid schizophrenia F20.0 [facility] [address] [address] May, Paranoid schizophrenia F20.0 ; Posttraum atic stress disorder F43.10 ; Attention deficit hyperactivity disorder (ADHD), inattentive type, 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 and Borderline personality disorder F60.3 [facility] [address] [address] Apr, [facility] [address] [address] Apr, Paranoid schizophrenia F20.0 ; Posttraum atic stress disorder F43.10 ; Attention deficit hyperactivity disorder (ADHD), inattentive type, 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 and Borderline personality disorder F60.3 [facility] [address] [address] Apr, [facility] [address] [address] Apr, Schizoaffective disorder, depressive typ e F25.1 and Borderline personality disorder F60.3 [facility] [address] [address] Apr, Paranoid schizophrenia F20.0 ; Posttraum atic stress disorder F43.10 ; Attention deficit hyperactivity disorder (ADHD), inattentive type, 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 and Borderline personality disorder F60.3 [facility] [address] [address] Apr, [facility] [address] [address] Apr, Paranoid schizophrenia F20.0 ; Posttraum atic stress disorder F43.10 ; Attention deficit hyperactivity disorder (ADHD), inattentive type, 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 and Borderline personality disorder F60.3 [facility] [address] [address] Apr, [facility] [address] [address] Mar, Paranoid schizophrenia F20.0 [facility] [address] [address] Mar, [facility] [address] [address] Mar, Paranoid schizophrenia F20.0 ; Posttraum atic stress disorder F43.10 ; Attention deficit hyperactivity disorder (ADHD), inattentive type, 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 and Borderline personality disorder F60.3 [facility] [address] [address] February, Paranoid schizophrenia F20.0 [facility] [address] [address] February, Paranoid schizophrenia F20.0 ; Posttraum atic stress disorder F43.10 ; Attention deficit hyperactivity disorder (ADHD), inattentive type, 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 and Borderline personality disorder F60.3 [facility] [address] [address] February, Paranoid schizophrenia F20.0 ; Posttraum atic stress disorder F43.10 ; Attention deficit hyperactivity disorder (ADHD), inattentive type, 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 and Borderline personality disorder F60.3 [facility] [address] [address] February, [facility] [address] [address] February, Paranoid schizophrenia F20.0 [facility] [address] [address] February, Paranoid schizophrenia F20.0 [facility] [address] [address] February, Paranoid schizophrenia F20.0 ; Posttraum atic stress disorder F43.10 ; Attention deficit hyperactivity disorder (ADHD), inattentive type, 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 and Borderline personality disorder F60.3 [facility] [address] [address] Jan, Paranoid schizophrenia F20.0 ; Posttraum atic stress disorder F43.10 ; Attention deficit hyperactivity disorder (ADHD), inattentive type, 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 and Borderline personality disorder F60.3 [facility] [address] [address] Jan, Paranoid schizophrenia F20.0 [facility] [address] [address] Jan, Paranoid schizophrenia F20.0 [facility] [address] [address] Jan, Paranoid schizophrenia F20.0 ; Posttraum atic stress disorder F43.10 ; Attention deficit hyperactivity disorder (ADHD), inattentive type, 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 and Borderline personality disorder F60.3 [facility] [address] [address] Dec, [facility] [address] [address] Nov, Paranoid schizophrenia F20.0 ; Posttraum atic stress disorder F43.10 ; Attention deficit hyperactivity disorder (ADHD), inattentive type, 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 and Borderline personality disorder F60.3 [facility] [address] [address] Nov, [facility] [address] [address] Oct, Paranoid schizophrenia F20.0 [facility] [address] [address] Oct, Paranoid schizophrenia F20.0 ; Posttraum atic stress disorder F43.10 ; Attention deficit hyperactivity disorder (ADHD), inattentive type, 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 ; Borderline personality disorder F60.3 and Other longterm (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 Z79.899 [facility] [address] [address] Oct, [facility] [address] [address] Oct, [facility] [address] [address] Sep, [facility] [address] [address] Sep, Paranoid schizophrenia F20.0 ; Posttraum atic stress disorder F43.10 ; Attention deficit hyperactivity disorder (ADHD), inattentive type, 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 and Borderline personality disorder F60.3 [facility] [address] [address] Sep, Paranoid schizophrenia F20.0 [facility] [address] [address] Aug, Paranoid schizophrenia F20.0 ; Posttraum atic stress disorder F43.10 ; Attention deficit hyperactivity disorder (ADHD), inattentive type, 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 and Borderline personality disorder F60.3 [facility] [address] [address] Aug, Paranoid schizophrenia F20.0 ; Posttraum atic stress disorder F43.10 ; Attention deficit hyperactivity disorder (ADHD), inattentive type, 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 and Borderline personality disorder F60.3 [facility] [address] [address] Aug, [facility] [address] [address] Jul, Paranoid schizophrenia F20.0 ; Posttraum atic stress disorder F43.10 ; Attention deficit hyperactivity disorder (ADHD), inattentive type, 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 and Borderline personality disorder F60.3 [facility] [address] [address] Jul, Paranoid schizophrenia F20.0 [facility] [address] [place] [id number] Jul, Paranoid schizophrenia F20.0 ; Posttraum atic stress disorder F43.10 ; Attention deficit hyperactivity disorder (ADHD), inattentive type, 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 and Borderline personality disorder F60.3 [facility] [address] [address] Jun, Paranoid schizophrenia F20.0 ; Posttraum atic stress disorder F43.10 ; Attention deficit hyperactivity disorder (ADHD), inattentive type, 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 and Borderline personality disorder F60.3 [facility] [address] [id number] [place] [address] May, Other longterm (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 Z 79.899 [facility] [address] [address] May, [facility] [address] [address] May, [facility] [address] [address] May, Attention deficit hyperactivity disorder (ADHD), inattentive type, 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 [facility] [address] [address] May, [facility] [address] [address] May, Attention deficit hyperactivity disorder (ADHD), inattentive type, 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 [facility] [address] [address] May, Paranoid schizophrenia F20.0 ; Posttraum atic stress disorder F43.10 ; Attention deficit hyperactivity disorder (ADHD), inattentive type, 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 and 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 [facility] [address] [address] Apr, Paranoid schizophrenia F20.0 [facility] [address] [address] Apr, Paranoid schizophrenia F20.0 ; Posttraum atic stress disorder F43.10 and Attention deficit hyperactivity disorder (ADHD), inattentive type, 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 [facility] [address] [address] February, [facility] [address] [address] February, Paranoid schizophrenia F20.0 ; Posttraum atic stress disorder F43.10 and Attention deficit hyperactivity disorder (ADHD), inattentive type, 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 [facility] [address] [address] February, Paranoid schizophrenia F20.0 ; Posttraum atic stress disorder F43.10 and Attention deficit hyperactivity disorder (ADHD), inattentive type, 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 [facility] [address] [address] Jan, Paranoid schizophrenia F20.0 ; Posttraum atic stress disorder F43.10 and Attention deficit hyperactivity disorder (ADHD), inattentive type, 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 [facility] [address] [id number] Dec, Dental examination Z01.20 [facility] [address] [id number] Nov, Dental examination Z01.20 [facility] [address] [id number] Nov, Dental examination Z01.20 [facility] [address] [id number] Nov, Dental caries K02.9 [facility] [address] [address] Nov, High risk medication use Z79.899 [facility] [address] [address] Nov, Paranoid schizophrenia F20.0 ; Posttraum atic stress disorder F43.10 ; Attention deficit hyperactivity disorder (ADHD), inattentive type, 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 and Borderline personality disorder in adult F60.3 [facility] [address] [id number] Oct, Dental caries K02.9 [facility] [address] [address] Sep, Paranoid schizophrenia F20.0 ; Posttraum atic stress disorder F43.10 and Attention deficit hyperactivity disorder (ADHD), inattentive type, 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 [facility] [address] [address] Aug, Paranoid schizophrenia F20.0 ; Posttraum atic stress disorder F43.10 and Attention deficit hyperactivity disorder (ADHD), inattentive type, 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 [facility] [address] [facility] [id number] [address] [place] [address] Aug, Strep throat J02.0 and Cough R05 [facility] [address] [address] Aug, [facility] [address] [address] Jul, Paranoid schizophrenia F20.0 ; Posttraum atic stress disorder F43.10 and Attention deficit hyperactivity disorder (ADHD), inattentive type, 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 [facility] [address] [address] Jul, [facility] [address] [address] 28 Jun, 2016 Paranoid schizophrenia F20.0 ; Posttraum atic stress disorder F43.10 and Attention deficit hyperactivity disorder (ADHD), inattentive type, 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 [facility] [address] [place] [id number] [place] [id number] Jun, Dental examination Z01.20 [facility] [address] [address] Jun, [facility] [address] [address] May, Paranoid schizophrenia F20.0 [facility] [address] [address] May, Paranoid schizophrenia F20.0 ; Posttraum atic stress disorder F43.10 and Attention deficit hyperactivity disorder (ADHD), inattentive type, 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 [facility] [id number] [place] [address] May, [facility] [id number] [place] [address] May, Paranoid schizophrenia F20.0 [facility] [id number] [place] [address] May, [facility] [address] [address] May, Paranoid schizophrenia F20.0 [facility] [address] [address] May, Schizoaffective disorder, unspecified F2 5.9 [facility] [address] [id number] [place] [address] May, Schizoaffective disorder, unspecified F2 5.9 [facility] [id number] [place] [address] May, [facility] [address] [address] May, Paranoid schizophrenia F20.0 [facility] [address] [place] [id number] [place] [address] May, Paranoid schizophrenia F20.0 ; Posttraum atic stress disorder F43.10 and Attention deficit hyperactivity disorder (ADHD), inattentive type, 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 [facility] [id number] [place] [address] Mar, [facility] [id number] [place] [address] Mar, Paranoid schizophrenia F20.0 ; Posttraum atic stress disorder F43.10 and Attention deficit hyperactivity disorder (ADHD), inattentive type, 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 [facility] [id number] [place] [address] Mar, Paranoid schizophrenia F20.0 [facility] [address] [address] Mar, Paranoid schizophrenia F20.0 ; Attention deficit hyperactivity disorder (ADHD), inattentive type, 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 and Posttraumatic stress disorder F43.10 [facility] [address] [address] Mar, [facility] [address] [address] Mar, Paranoid schizophrenia F20.0 ; Posttraum atic stress disorder F43.10 and Attention deficit hyperactivity disorder (ADHD), inattentive type, 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 [facility] [address] [address] February, [facility] [address] [address] February, [facility] [address] [address] February, [facility] [address] [address] February, [facility] [address] [address] Jan, Paranoid schizophrenia F20.0 [facility] [address] [id number] Jan, Dental examination Z01.20 [facility] [address] [id number] Jan, Dental caries K02.9 [facility] [address] [id number] Jan, Dental examination Z01.20 [facility] [address] [id number] Dec, Encounter for dental examination Z01.20 [facility] [address] [address] Dec, Paranoid schizophrenia F20.0 [facility] [address] [id number] [place] [id number] 15 Dec, 2015 Dental examination Z01.20 [facility] [address] [address] Dec, [facility] [address] [address] Dec, Paranoid schizophrenia F20.0 ; Posttraum atic stress disorder F43.10 and Attention deficit hyperactivity disorder (ADHD), inattentive type, 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 [facility] [address] [address] Nov, Schizoaffective disorder, unspecified F2 5.9 [facility] [address] [address] Oct, Paranoid schizophrenia F20.0 [facility] [address] [address] Oct, [facility] [address] [address] Sep, Paranoid schizophrenia F20.0 ; Posttraum atic stress disorder F43.10 and Attention deficit hyperactivity disorder (ADHD), inattentive type, 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 [facility] [address] [address] Sep, [facility] [address] [address] Sep, Paranoid schizophrenia F20.0 ; Posttraum atic stress disorder F43.10 and Attention deficit hyperactivity disorder (ADHD), inattentive type, 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 [facility] [address] [address] Aug, Paranoid schizophrenia F20.0 [facility] [address] [address] Aug, [facility] [address] [address] Aug, Posttraumatic stress disorder F43.10 ; P aranoid schizophrenia F20.0 and Attention deficit hyperactivity disorder (ADHD), inattentive type, 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 [place] [address] [address] Jul, Bipolar disorder, unspecified F31.9 [place] [address] [address] Jul, [facility] [address] [address] Jun, [place] [address] [address] Jun, Schizoaffective disorder, chronic 295.72 ; Posttraumatic stress disorder 309.81 and Attention deficit disorder of childhood without mention of hyperactivity 314.00 [place] [address] [address] May, [place] [address] [address] May, [facility] [address] [address] May, Schizoaffective disorder, chronic 295.72 ; Posttraumatic stress disorder 309.81 ; Attention deficit disorder of childhood without mention of hyperactivity 314.00 and Bipolar disorder, unspecified 296.80 [place] [address] [address] Apr, Schizoaffective disorder, chronic 295.72 [facility] [address] [address] Apr, [facility] [address] [address] Apr, Schizoaffective disorder, chronic 295.72 ; Posttraumatic stress disorder 309.81 and Attention deficit disorder of childhood without mention of hyperactivity 314.[address] [place] [address] [address] Mar, Disorganized schizophrenia, 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 [place] [address] [address] [place] [address] Mar, [facility] [address] [facility] [id number] [place] [address] Mar, [facility] [address] [id number] [place] [address] Mar, [facility] [address] [id number] [place] [address] Mar, [facility] [address] [id number] [place] [address] February, Schizoaffective disorder, chronic 295.72 [facility] [address] [id number] [place] [address] February, [facility] [address] [id number] [place] [address] February, Attention deficit disorder of childhood without mention of hyperactivity 314.00 ; Posttraumatic stress disorder 309.81 and Schizoaffective disorder, chronic 295.72 [facility] [address] [id number] [place] [address] 29 Jan, 2015 [facility] [address] [id number] [place] [address] 14 Jan, 2015 [facility] [address] [id number] [place] [address] Jan, [facility] [address] [id number] [place] [address] Dec, [facility] [address] [id number] [place] [address] Dec, [facility] [address] [id number] [place] [address] Dec, [facility] [address] [id number] [place] [address] 23 Dec, 2014 [facility] [address] [id number] [place] [address] Dec, [facility] [id number] [place] [address] Dec, [facility] [address] [facility] [id number] [place] [address] Dec, [facility] [address] [id number] [place] [address] Dec, [facility] [id number] [place] [address] Nov, [facility] [id number] [place] [address] Nov, [facility] [id number] [place] [address] Nov, [facility] [id number] [place] [address] Nov, [facility] [id number] [place] [address] Nov, [facility] [id number] [place] [address] Nov, 2014 [facility] [id number] [place] [address] Nov, [facility] [id number] [place] [address] Nov, [facility] [address] [id number] [place] [address] Nov, [facility] [id number] [place] [address] Nov, [facility] [id number] [place] [address] Oct, [facility] [id number] [place] [address] Oct, [facility] [id number] [place] [address] Oct, [facility] [id number] [place] [address] Oct, [facility] [id number] [place] [address] 15 Oct, 2014 [facility] [id number] [place] [address] Oct, [facility] [id number] [place] [address] Oct, [facility] [id number] [place] [address] 17 Sep, 2014 [facility] [id number] [place] [address] Sep, [facility] [address] [id number] [place] [address] Sep, [facility] [address] [id number] [place] [address] Sep, [facility] [address] [id number] [place] [address] Aug, [facility] [id number] [place] [address] Aug, [facility] [id number] [place] [address] Aug, [facility] [address] [id number] [place] [address] Aug, [facility] [address] [id number] [place] [address] Aug, [facility] [address] [id number] [place] [address] Aug, [facility] [id number] [place] [address] 29 Jul, 2014 [facility] [id number] [place] [address] 29 Jul, 2014 [facility] [id number] [place] [address] 24 Jul, 2014 [facility] [id number] [place] [address] 24 Jul, 2014 [facility] [address] [id number] [place] [address] 15 Jul, 2014 [facility] [address] [facility] [id number] [place] [address] 15 Jul, 2014 [facility] [id number] [place] [address] 27 Jun, 2013 [facility] [address] [id number] [place] [address] 27 Jun, 2013 [facility] [address] [facility] [id number] [place] [address] 26 Jun, 2013 [facility] [address] [facility] [id number] [place] [address] Jun, 2013 [facility] [address] [id number] [place] [address] Jun, 2013 [facility] [id number] [place] [address] 26 Jun, 2013 [facility] [address] [facility] [id number] [place] [address] 16 Jun, 2013 [facility] [id number] [place] [address] 16 Jun, 2013 [facility] [id number] [place] [address] 16 Jun, 2013 [facility] [id number] [place] [address] 16 Jun, 2013 [facility] [address] [facility] [id number] [place] [address] 04 Jun, 2013 [facility] [address] [id number] [place] [address] May, [facility] [address] [facility] [id number] [place] [address] May, [facility] [address] [id number] [place] [address] May, [facility] [id number] [place] [address] May, [facility] [address] [id number] [place] [address] May, [facility] [address] [facility] [id number] [place] [address] May, [facility] [address] [id number] [place] [address] May, [facility] [address] [facility] [id number] [place] [address] May, [facility] [address] [id number] [place] [address] May, [facility] [id number] [place] [address] May, [facility] [id number] [place] [address] Apr, [facility] [id number] [place] [address] Apr, [facility] [address] [facility] [id number] [place] [address] Apr, [facility] [address] [id number] [place] [address] Apr, [facility] [id number] [place] [address] Apr, [facility] [address] [id number] [place] [address] Apr, [facility] [address] [facility] [id number] [place] [address] Apr, [facility] [address] [id number] [place] [address] Apr, [facility] [id number] [place] [address] Apr, [facility] [id number] [place] [address] Apr, [facility] [address] [facility] [id number] [place] [address] Mar, [facility] [address] [id number] [place] [address] Mar, [facility] [id number] [place] [address] Mar, [facility] [id number] [place] [address] 24 Mar, 2014 [facility] [id number] [place] [address] 20 Mar, 2014 [facility] [id number] [place] [address] Mar, [facility] [id number] [place] [address] Mar, [facility] [id number] [place] [address] 16 Mar, 2014 [facility] [id number] [place] [address] 16 Mar, 2014 [facility] [id number] [place] [address] Mar, [facility] [address] [id number] [place] [address] Mar, [facility] [id number] [place] [address] Mar, [facility] [id number] [place] [address] Mar, [facility] [id number] [place] [address] 10 Mar, 2014 [facility] [address] [id number] [place] [address] 09 Mar, 2014 [facility] [id number] [place] [address] 09 Mar, 2014 [facility] [id number] [place] [address] Mar, [facility] [address] [id number] [place] [address] Mar, [facility] [address] [facility] [id number] [place] [address] Mar, [facility] [address] [facility] [id number] [place] [address] Mar, [facility] [address] [id number] [place] [address] February, [facility] [address] [id number] [place] [address] February, [facility] [address] [id number] [place] [address] February, [facility] [address] [id number] [place] [address] February, [facility] [address] [id number] [place] [address] February, [facility] [address] [facility] [id number] [place] [address] February, [facility] [address] [id number] [place] [address] February, [facility] [address] [id number] [place] [address] February, [facility] [address] [id number] [place] [address] February, [facility] [address] [facility] [id number] [place] [address] February, [facility] [address] [id number] [place] [address] February, [facility] [address] [id number] [place] [address] February, [facility] [address] [id number] [place] [address] February, [facility] [address] [id number] [place] [address] February, [facility] [address] [id number] [place] [address] February, [facility] [address] [id number] [place] [address] February, [facility] [address] [id number] [place] [address] February, [facility] [address] [id number] [place] [address] February, [facility] [address] [id number] [place] [address] February, [facility] [address] [id number] [place] [address] February, [facility] [address] [id number] [place] [address] February, [facility] [address] [id number] [place] [address] Jan, [facility] [address] [id number] [place] [address] Jan, [facility] [address] [id number] [place] [address] Jan, [facility] [address] [id number] [place] [address] Jan, [facility] [address] [id number] [place] [address] Jan, [facility] [address] [id number] [place] [address] Jan, [facility] [address] [id number] [place] [address] Jan, [facility] [address] [id number] [place] [address] Jan, [facility] [address] [id number] [place] [address] Dec, [facility] [address] [id number] [place] [address] Dec, [facility] [address] [id number] [place] [address] 20 Dec, 2013 [facility] [address] [id number] [place] [address] 19 Dec, 2013 [facility] [address] [id number] [place] [address] 19 Dec, 2013 [facility] [address] [id number] [place] [address] 15 Dec, 2013 [facility] [address] [id number] [place] [address] 15 Dec, 2013 [facility] [address] [id number] [place] [address] 11 Dec, 2013 [facility] [address] [id number] [place] [address] Dec, [facility] [address] [id number] [place] [address] 10 Dec, 2013 [facility] [address] [id number] [place] [address] 18 Nov, 2013 [facility] [address] [id number] [place] [address] Nov, [facility] [address] [id number] [place] [address] Nov, [facility] [address] [id number] [place] [address] Nov, [facility] [address] [id number] [place] [address] Nov, [facility] [address] [id number] [place] [address] Oct, [facility] [address] [id number] [place] [address] Oct, [facility] [address] [id number] [place] [address] Oct, [facility] [address] [id number] [place] [address] Sep, [facility] [address] [id number] [place] [address] Sep, [facility] [address] [id number] [place] [address] Sep, [facility] [address] [facility] [id number] [place] [address] Sep, [facility] [address] [id number] [place] [address] Aug, [facility] [address] [facility] [id number] [place] [address] Aug, [facility] [address] [facility] [id number] [place] [address] Jul, [facility] [address] [facility] [id number] [place] [address] Jul, [facility] [address] [facility] [id number] [place] [address] Jul, [facility] [address] [facility] [id number] [place] [address] Jul, [facility] [address] [facility] [id number] [place] [address] Jul, [facility] [address] [facility] [id number] [place] [address] Jun, 2012 [facility] [address] [facility] [id number] [place] [address] 25 Jun, 2012 [facility] [address] [id number] [place] [address] 19 Sep, 2012 [facility] [address] [facility] [id number] [place] [address] 18 Sep, 2012 [facility] [address] [facility] [id number] [place] [address] 16 Jun, 2012 [facility] [address] [id number] [place] [address] Jun, [facility] [address] [id number] [place] [address] Jun, [facility] [address] [facility] [id number] [place] [address] May, [facility] [address] [facility] [id number] [place] [address] May, [facility] [address] [id number] [place] [address] Apr, [facility] [address] [facility] [id number] [place] [address] Apr, [facility] [address] [id number] [place] [address] Apr, [facility] [address] [id number] [place] [address] Mar, [facility] [address] [id number] [place] [address] Mar, [facility] [address] [id number] [place] [address] February, [facility] [address] [id number] [place] [address] February, [facility] [address] [id number] [place] [address] February, [facility] [address] [id number] [place] [address] February, [facility] [address] [id number] [place] [address] Jan, [facility] [address] [id number] [place] [address] 17 Jan, 2013 [facility] [address] [facility] [id number] [place] [address] 16 Jan, 2013 [facility] [address] [id number] [place] [address] Dec, [facility] [address] [id number] [place] [address] Dec, [facility] [address] [id number] [place] [address] Dec, [facility] [address] [id number] [place] [address] 08 Dec, 2012 [facility] [address] [id number] [place] [address] Nov, [facility] [address] [id number] [place] [address] Nov, [facility] [address] [id number] [place] [address] Oct, [facility] [address] [id number] [place] [address] Oct, [facility] [id number] [place] [address] Oct, [facility] [address] [id number] [place] [address] Oct, [facility] [address] [id number] [place] [address] Aug, [facility] [address] [id number] [place] [address] Aug, [facility] [address] [id number] [place] [address] Jun, [facility] [address] [id number] [place] [address] May, [facility] [address] [id number] [place] [address] May, [facility] [address] [id number] [place] [address] Apr, [facility] [address] [id number] [place] [address] Apr, [facility] [address] [id number] [place] [address] 05 Apr, 2012 [facility] [address] [id number] [place] [address] Mar, [facility] [address] [id number] [place] [address] Mar, [facility] [address] [id number] [place] [address] Mar, [facility] [address] [id number] [place] [address] Mar, [facility] [address] [id number] [place] [address] Mar, [facility] [address] [id number] [place] [address] February, [facility] [address] [id number] [place] [address] February, [facility] [address] [id number] [place] [address] February, [facility] [address] [id number] [place] [address] February, [facility] [address] [id number] [place] [address] February, [facility] [address] [id number] [place] [address] February, [facility] [address] [id number] [place] [address] February, [facility] [address] [id number] [place] [address] Jan, [facility] [address] [id number] [place] [address] 18 Jan, 2012 [facility] [address] [id number] [place] [address] 17 Jan, 2012 [facility] [address] [id number] [place] [address] 13 Jan, 2012 [facility] [address] [id number] [place] [address] 10 Jan, 2012 [facility] [address] [id number] [place] [address] 04 Jan, 2012 [facility] [address] [id number] [place] [address] 30 Dec, 2011 [facility] [address] [id number] [place] [address] 24 Dec, 2011 [facility] [address] [id number] [place] [address] 20 Dec, 2011 [facility] [address] [id number] [place] [address] 13 Dec, 2011 [facility] [address] [id number] [place] [address] Dec, [facility] [address] [id number] [place] [address] Nov, [facility] [address] [id number] [place] [address] Nov, [facility] [address] [id number] [place] [address] Nov, [facility] [address] [id number] [place] [address] 14 Nov, 2011 [facility] [address] [id number] [place] [address] Nov, [facility] [address] [id number] [place] [address] Nov, [facility] [address] [id number] [place] [address] Oct, [facility] [address] [id number] [place] [address] Oct, [facility] [address] [id number] [place] [address] Oct, [facility] [address] [id number] [place] [address] Oct, [facility] [address] [id number] [place] [address] Oct, [facility] [address] [id number] [place] [address] Sep, [facility] [address] [id number] [place] [address] Sep, [facility] [address] [id number] [place] [address] Sep, [facility] [address] [id number] [place] [address] Sep, [facility] [address] [id number] [place] [address] Sep, [facility] [address] [id number] [place] [address] Sep, [facility] [address] [id number] [place] [address] Sep, [facility] [address] [id number] [place] [address] Sep, [facility] [address] [id number] [place] [address] Sep, [facility] [address] [id number] [place] [address] Aug, [facility] [address] [id number] [place] [address] Aug, [facility] [address] [id number] [place] [address] Aug, [facility] [address] [id number] [place] [address] Aug, [facility] [address] [id number] [place] [address] Aug, [facility] [address] [id number] [place] [address] Aug, [facility] [address] [id number] [place] [address] 16 Aug, 2011 [facility] [address] [id number] [place] [address] 16 Aug, 2011 [facility] [address] [id number] [place] [address] Aug, [facility] [address] [id number] [place] [address] Aug, [facility] [address] [id number] [place] [address] Aug, [facility] [address] [id number] [place] [address] Aug, [facility] [address] [id number] [place] [address] Jul, [facility] [address] [id number] [place] [address] Jul, [facility] [address] [id number] [place] [address] Jul, [facility] [address] [id number] [place] [address] Jul, [facility] [address] [id number] [place] [address] Jul, [facility] [address] [id number] [place] [address] Jul, [facility] [address] [id number] [place] [address] Jul, [facility] [address] [id number] [place] [address] Jul, [facility] [address] [id number] [place] [address] Jul, [facility] [address] [id number] [place] [address] Jul, [facility] [address] [address] [id number] [place] [address] Nov, [facility] [address] [id number] [place] [address] Aug[facility] [address] [id number] [place] [address] Aug, [facility] [address] [id number] [place] [address] Aug, [facility] [address] [id number] [place] [address] Aug, [facility] [address] [id number] [place] [address] Jul, IMMUNIZATIONS No Known Immunizations SOCIAL HISTORY Never Assessed REASON FOR VISIT PLAN OF CARE VITAL SIGNS Height 62.25 in 2014-04-18 Weight 196 lbs 2014-04-18 Temperature 97.9 degrees Fahrenheit 2014-04-18 Heart Rate 76 bpm 2014-04-18 Respiratory Rate 24 2014-04-18 Blood pressure systolic 104 mmHg 2014-04-18 Blood pressure diastolic 68 mmHg 2014-04-18 MEDICATIONS Unknown Medications RESULTS No Results PROCEDURES [...]
--- OUTSIDE RECORDS SUMMARY | 2020-04-04 01:53 | XMS REPORT ---
Author Author Kaila Roca Organization [facility] Address [address] [place] [address] Care Team Providers Care President Sales And Marketing Name Role Phone BRYAN Roca Unavailable PROBLEMS Type Condition ICD9-CM Code [id number] Code Onset Dates Condition S tatus SNOMED Code Problem Paranoid schizophrenia F20.0 Active 98458418 Problem Borderline personality disorder F60.3 Active 92821486 Problem Schizoaffective disorder, depressive type F25.1 Active 32794842 Problem Schizoaffective disorder, unspecified F25.9 Active 87784589 Problem Attention deficit hyperactivity disorder (ADHD), inattentive type, 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 73118000 Problem Posttraumatic stress disorder F43.10 Active 99906967 Problem High risk medication use Z79.899 Activ e [id number] ALLERGIES No Information ENCOUNTERS Encounter Location Date Diagnosis [facility] [address] [address] Oct, [facility] [address] [address] Oct, [place] [address] [address] Oct, [facility] [address] [address] Sep, Paranoid schizophrenia F20.0 ; Attention deficit hyperactivity disorder (ADHD), inattentive type, 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 ; Posttraumatic stress disorder F43.10 and Borderline personality disorder F60.3 [facility] [address] [address] Aug, Paranoid schizophrenia F20.0 ; Attention deficit hyperactivity disorder (ADHD), inattentive type, 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 ; Posttraumatic stress disorder F43.10 and Borderline personality disorder F60.3 [facility] [address] [place] [id number] [place] [address] Aug, [facility] [address] [facility] [id number] [address] [place] [address] Aug, Acute bronchitis, unspecifie d organism J20.9 [facility] [address] [address] Aug, [facility] [address] [address] Aug, [facility] [address] [address] Jul, Paranoid schizophrenia F20.0 ; Attention deficit hyperactivity disorder (ADHD), inattentive type, 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 ; Posttraumatic stress disorder F43.10 and Borderline personality disorder F60.3 [facility] [address] [address] Jul, [facility] [address] [address] Jun, Paranoid schizophrenia F20.0 ; Other katherin g term (current) 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 Z79.899 ; Attention deficit hyperactivity disorder (ADHD), inattentive type, 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 ; Posttraumatic stress disorder F43.10 and Borderline personality disorder F60.3 [facility] [address] [address] Jun, Paranoid schizophrenia F20.0 ; Attention deficit hyperactivity disorder (ADHD), inattentive type, 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 ; Posttraumatic stress disorder F43.10 ; Borderline personality disorder F60.3 and Other snf (current) drug therapy Z79.899 [place] [address] [address] Apr, Paranoid schizophrenia F20.0 ; Posttraum atic stress disorder F43.10 ; Attention deficit hyperactivity disorder (ADHD), inattentive type, 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 and Borderline personality disorder F60.3 [facility] [address] [address] Apr, Paranoid schizophrenia F20.0 [facility] [address] [address] Apr, Paranoid schizophrenia F20.0 ; Posttraum atic stress disorder F43.10 ; Attention deficit hyperactivity disorder (ADHD), inattentive type, 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 and Borderline personality disorder F60.3 [facility] [address] [address] Mar, Paranoid schizophrenia F20.0 [facility] [address] [address] Mar, Paranoid schizophrenia F20.0 ; Posttraum atic stress disorder F43.10 ; Attention deficit hyperactivity disorder (ADHD), inattentive type, 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 and Borderline personality disorder F60.3 [facility] [address] [address] February, Paranoid schizophrenia F20.0 [facility] [address] [address] Jan, Paranoid schizophrenia F20.0 ; Posttraum atic stress disorder F43.10 ; Attention deficit hyperactivity disorder (ADHD), inattentive type, 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 and Borderline personality disorder F60.3 [facility] [address] [address] Dec, Paranoid schizophrenia F20.0 ; Posttraum atic stress disorder F43.10 ; Attention deficit hyperactivity disorder (ADHD), inattentive type, 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 and Borderline personality disorder F60.3 [facility] [address] [address] Dec, Paranoid schizophrenia F20.0 ; Posttraum atic stress disorder F43.10 ; Attention deficit hyperactivity disorder (ADHD), inattentive type, 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 and Borderline personality disorder F60.3 [facility] [address] [address] Oct, Paranoid schizophrenia F20.0 ; Posttraum atic stress disorder F43.10 ; Attention deficit hyperactivity disorder (ADHD), inattentive type, 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 and Borderline personality disorder F60.3 [facility] [address] [address] Oct, Paranoid schizophrenia F20.0 ; Posttraum atic stress disorder F43.10 ; Attention deficit hyperactivity disorder (ADHD), inattentive type, 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 and Borderline personality disorder F60.3 [facility] [address] [place] [id number] [place] [address] Aug, [facility] [address] [address] Aug, Paranoid schizophrenia F20.0 ; Posttraum atic stress disorder F43.10 ; Attention deficit hyperactivity disorder (ADHD), inattentive type, 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 and Borderline personality disorder F60.3 [facility] [address] [facility] [id number] [address] [place] [address] Jul, Dry skin dermatitis L85.3 [facility] [address] [place] [address] [id number] [place] [address] Jul, [facility] [address] [address] Jul, Paranoid schizophrenia F20.0 [facility] [address] [place] [id number] [place] [address] May, Paranoid schizophrenia F20.0 ; Posttraum atic stress disorder F43.10 ; Attention deficit hyperactivity disorder (ADHD), inattentive type, 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 and Borderline personality disorder F60.3 [facility] [address] [place] [id number] [place] [address] May, [facility] [address] [address] May, Paranoid schizophrenia F20.0 [facility] [address] [address] May, Paranoid schizophrenia F20.0 ; Posttraum atic stress disorder F43.10 ; Attention deficit hyperactivity disorder (ADHD), inattentive type, 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 and Borderline personality disorder F60.3 [facility] [address] [address] Apr, [facility] [address] [address] Apr, Paranoid schizophrenia F20.0 ; Posttraum atic stress disorder F43.10 ; Attention deficit hyperactivity disorder (ADHD), inattentive type, 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 and Borderline personality disorder F60.3 [facility] [address] [address] Apr, [facility] [address] [address] Apr, Schizoaffective disorder, depressive typ e F25.1 and Borderline personality disorder F60.3 [facility] [address] [address] Apr, Paranoid schizophrenia F20.0 ; Posttraum atic stress disorder F43.10 ; Attention deficit hyperactivity disorder (ADHD), inattentive type, 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 and Borderline personality disorder F60.3 [facility] [address] [address] Apr, [facility] [address] [address] Apr, Paranoid schizophrenia F20.0 ; Posttraum atic stress disorder F43.10 ; Attention deficit hyperactivity disorder (ADHD), inattentive type, 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 and Borderline personality disorder F60.3 [facility] [address] [address] Apr, [facility] [address] [address] Mar, Paranoid schizophrenia F20.0 [facility] [address] [address] Mar, [facility] [address] [address] Mar, Paranoid schizophrenia F20.0 ; Posttraum atic stress disorder F43.10 ; Attention deficit hyperactivity disorder (ADHD), inattentive type, 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 and Borderline personality disorder F60.3 [facility] [address] [address] February, Paranoid schizophrenia F20.0 [facility] [address] [address] February, Paranoid schizophrenia F20.0 ; Posttraum atic stress disorder F43.10 ; Attention deficit hyperactivity disorder (ADHD), inattentive type, 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 and Borderline personality disorder F60.3 [facility] [address] [address] February, Paranoid schizophrenia F20.0 ; Posttraum atic stress disorder F43.10 ; Attention deficit hyperactivity disorder (ADHD), inattentive type, 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 and Borderline personality disorder F60.3 [facility] [address] [address] February, [facility] [address] [address] February, Paranoid schizophrenia F20.0 [facility] [address] [address] February, Paranoid schizophrenia F20.0 [facility] [address] [address] February, Paranoid schizophrenia F20.0 ; Posttraum atic stress disorder F43.10 ; Attention deficit hyperactivity disorder (ADHD), inattentive type, 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 and Borderline personality disorder F60.3 [facility] [address] [address] Jan, Paranoid schizophrenia F20.0 ; Posttraum atic stress disorder F43.10 ; Attention deficit hyperactivity disorder (ADHD), inattentive type, 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 and Borderline personality disorder F60.3 [facility] [address] [address] Jan, Paranoid schizophrenia F20.0 [facility] [address] [address] Jan, Paranoid schizophrenia F20.0 [facility] [address] [address] Jan, Paranoid schizophrenia F20.0 ; Posttraum atic stress disorder F43.10 ; Attention deficit hyperactivity disorder (ADHD), inattentive type, 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 and Borderline personality disorder F60.3 [facility] [address] [address] Dec, [facility] [address] [address] Nov, Paranoid schizophrenia F20.0 ; Posttraum atic stress disorder F43.10 ; Attention deficit hyperactivity disorder (ADHD), inattentive type, 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 and Borderline personality disorder F60.3 [facility] [address] [address] Nov, [facility] [address] [address] Oct, Paranoid schizophrenia F20.0 [facility] [address] [address] Oct, Paranoid schizophrenia F20.0 ; Posttraum atic stress disorder F43.10 ; Attention deficit hyperactivity disorder (ADHD), inattentive type, 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 ; Borderline personality disorder F60.3 and Other snf (current) drug therapy Z79.899 [facility] [address] [address] Oct, [facility] [address] [address] Oct, [facility] [address] [address] Sep, [facility] [address] [address] Sep, Paranoid schizophrenia F20.0 ; Posttraum atic stress disorder F43.10 ; Attention deficit hyperactivity disorder (ADHD), inattentive type, 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 and Borderline personality disorder F60.3 [facility] [address] [address] Sep, Paranoid schizophrenia F20.0 [facility] [address] [address] Aug, Paranoid schizophrenia F20.0 ; Posttraum atic stress disorder F43.10 ; Attention deficit hyperactivity disorder (ADHD), inattentive type, 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 and Borderline personality disorder F60.3 [facility] [address] [address] Aug, Paranoid schizophrenia F20.0 ; Posttraum atic stress disorder F43.10 ; Attention deficit hyperactivity disorder (ADHD), inattentive type, 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 and Borderline personality disorder F60.3 [facility] [address] [address] Aug, [facility] [address] [address] Jul, Paranoid schizophrenia F20.0 ; Posttraum atic stress disorder F43.10 ; Attention deficit hyperactivity disorder (ADHD), inattentive type, 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 and Borderline personality disorder F60.3 [facility] [address] [address] Jul, Paranoid schizophrenia F20.0 [facility] [address] [place] [id number] Jul, Paranoid schizophrenia F20.0 ; Posttraum atic stress disorder F43.10 ; Attention deficit hyperactivity disorder (ADHD), inattentive type, 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 and Borderline personality disorder F60.3 [facility] [address] [address] Jun, Paranoid schizophrenia F20.0 ; Posttraum atic stress disorder F43.10 ; Attention deficit hyperactivity disorder (ADHD), inattentive type, 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 and Borderline personality disorder F60.3 [facility] [address] [place] [id number] [place] [address] May, Other snf (current) drug therapy Z 79.899 [facility] [address] [address] May, [facility] [address] [address] May, [facility] [address] [address] May, Attention deficit hyperactivity disorder (ADHD), inattentive type, 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 [facility] [address] [address] May, [facility] [address] [address] May, Attention deficit hyperactivity disorder (ADHD), inattentive type, 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 [facility] [address] [address] May, Paranoid schizophrenia F20.0 ; Posttraum atic stress disorder F43.10 ; Attention deficit hyperactivity disorder (ADHD), inattentive type, 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 and 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 [facility] [address] [address] Apr, Paranoid schizophrenia F20.0 [facility] [address] [address] Apr, Paranoid schizophrenia F20.0 ; Posttraum atic stress disorder F43.10 and Attention deficit hyperactivity disorder (ADHD), inattentive type, 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 [facility] [address] [address] February, [facility] [address] [address] February, Paranoid schizophrenia F20.0 ; Posttraum atic stress disorder F43.10 and Attention deficit hyperactivity disorder (ADHD), inattentive type, 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 [facility] [address] [address] February, Paranoid schizophrenia F20.0 ; Posttraum atic stress disorder F43.10 and Attention deficit hyperactivity disorder (ADHD), inattentive type, 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 [facility] [address] [address] Jan, Paranoid schizophrenia F20.0 ; Posttraum atic stress disorder F43.10 and Attention deficit hyperactivity disorder (ADHD), inattentive type, 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 [facility] [address] [id number] Dec, Dental examination Z01.20 [facility] [address] [id number] Nov, Dental examination Z01.20 [facility] [address] [id number] Nov, Dental examination Z01.20 [facility] [address] [id number] Nov, Dental caries K02.9 [facility] [address] [address] Nov, High risk medication use Z79.899 [facility] [address] [address] Nov, Paranoid schizophrenia F20.0 ; Posttraum atic stress disorder F43.10 ; Attention deficit hyperactivity disorder (ADHD), inattentive type, 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 and Borderline personality disorder in adult F60.3 [facility] [address] [id number] Oct, Dental caries K02.9 [facility] [address] [address] Sep, Paranoid schizophrenia F20.0 ; Posttraum atic stress disorder F43.10 and Attention deficit hyperactivity disorder (ADHD), inattentive type, 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 [facility] [address] [address] Aug, Paranoid schizophrenia F20.0 ; Posttraum atic stress disorder F43.10 and Attention deficit hyperactivity disorder (ADHD), inattentive type, 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 [facility] [address] [facility] [id number] [address] [place] [address] Aug, Strep throat J02.0 and Cough R05 [facility] [address] [address] Aug, [facility] [address] [address] Jul, Paranoid schizophrenia F20.0 ; Posttraum atic stress disorder F43.10 and Attention deficit hyperactivity disorder (ADHD), inattentive type, 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 [facility] [address] [address] Jul, [facility] [address] [address] 28 Jun, 2016 Paranoid schizophrenia F20.0 ; Posttraum atic stress disorder F43.10 and Attention deficit hyperactivity disorder (ADHD), inattentive type, 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 [facility] [address] [place] [id number] [place] [id number] Jun, Dental examination Z01.20 [facility] [address] [address] Jun, [facility] [address] [address] May, Paranoid schizophrenia F20.0 [facility] [address] [address] May, Paranoid schizophrenia F20.0 ; Posttraum atic stress disorder F43.10 and Attention deficit hyperactivity disorder (ADHD), inattentive type, 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 [facility] [address] [place] [id number] [place] [address] May, [facility] [address] [place] [id number] [place] [address] May, Paranoid schizophrenia F20.0 [facility] [address] [place] [id number] [place] [address] May, [facility] [address] [address] May, Paranoid schizophrenia F20.0 [facility] [address] [address] May, Schizoaffective disorder, unspecified F2 5.9 [facility] [address] [place] [id number] [place] [address] May, Schizoaffective disorder, unspecified F2 5.9 [facility] [address] [place] [address] [id number] [place] [address] May, [facility] [address] [address] May, Paranoid schizophrenia F20.0 [facility] [address] [place] [id number] [place] [address] May, Paranoid schizophrenia F20.0 ; Posttraum atic stress disorder F43.10 and Attention deficit hyperactivity disorder (ADHD), inattentive type, 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 [facility] [address] [id number] [place] [address] Mar, [facility] [address] [place] [id number] [place] [address] Mar, Paranoid schizophrenia F20.0 ; Posttraum atic stress disorder F43.10 and Attention deficit hyperactivity disorder (ADHD), inattentive type, 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 [facility] [address] [place] [address] [id number] [place] [address] Mar, Paranoid schizophrenia F20.0 [facility] [address] [address] Mar, Paranoid schizophrenia F20.0 ; Attention deficit hyperactivity disorder (ADHD), inattentive type, 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 and Posttraumatic stress disorder F43.10 [facility] [address] [address] Mar, [facility] [address] [address] Mar, Paranoid schizophrenia F20.0 ; Posttraum atic stress disorder F43.10 and Attention deficit hyperactivity disorder (ADHD), inattentive type, 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 [facility] [address] [address] February, [facility] [address] [address] February, [facility] [address] [address] February, [facility] [address] [address] February, [facility] [address] [address] Jan, Paranoid schizophrenia F20.0 [facility] [address] [id number] Jan, Dental examination Z01.20 [facility] [address] [id number] Jan, Dental caries K02.9 [facility] [address] [id number] Jan, Dental examination Z01.20 [facility] [address] [id number] Dec, Encounter for dental examination Z01.20 [facility] [address] [address] Dec, Paranoid schizophrenia F20.0 [facility] [address] [id number] [place] [id number] 15 Dec, 2015 Dental examination Z01.20 [facility] [address] [address] Dec, [facility] [address] [address] Dec, Paranoid schizophrenia F20.0 ; Posttraum atic stress disorder F43.10 and Attention deficit hyperactivity disorder (ADHD), inattentive type, 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 [facility] [address] [address] Nov, Schizoaffective disorder, unspecified F2 5.9 [facility] [address] [address] Oct, Paranoid schizophrenia F20.0 [facility] [address] [address] Oct, [facility] [address] [address] Sep, Paranoid schizophrenia F20.0 ; Posttraum atic stress disorder F43.10 and Attention deficit hyperactivity disorder (ADHD), inattentive type, 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 [facility] [address] [address] Sep, [facility] [address] [address] Sep, Paranoid schizophrenia F20.0 ; Posttraum atic stress disorder F43.10 and Attention deficit hyperactivity disorder (ADHD), inattentive type, 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 [facility] [address] [address] Aug, Paranoid schizophrenia F20.0 [facility] [address] [address] Aug, [facility] [address] [address] Aug, Posttraumatic stress disorder F43.10 ; P aranoid schizophrenia F20.0 and Attention deficit hyperactivity disorder (ADHD), inattentive type, 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 [place] [address] [address] Jul, Bipolar disorder, unspecified F31.9 [place] [address] [address] Jul, [facility] [address] [address] Jun, [place] [address] [address] Jun, Schizoaffective disorder, chronic 295.72 ; Posttraumatic stress disorder 309.81 and Attention deficit disorder of childhood without mention of hyperactivity 314.00 [place] [address] [address] May, [place] [address] [address] May, [facility] [address] [address] May, Schizoaffective disorder, chronic 295.72 ; Posttraumatic stress disorder 309.81 ; Attention deficit disorder of childhood without mention of hyperactivity 314.00 and Bipolar disorder, unspecified 296.80 [place] [address] [address] Apr, Schizoaffective disorder, chronic 295.72 [facility] [address] [address] Apr, [facility] [address] [address] Apr, Schizoaffective disorder, chronic 295.72 ; Posttraumatic stress disorder 309.81 and Attention deficit disorder of childhood without mention of hyperactivity 314.00 [place] [address] [address] Mar, Disorganized schizophrenia, 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 [place] [address] [place] [address] [place] [address] Mar, [facility] [address] [id number] [place] [address] Mar, [facility] [id number] [place] [address] Mar, [facility] [id number] [place] [address] Mar, [facility] [id number] [place] [address] February, Schizoaffective disorder, chronic 295.72 [facility] [id number] [place] [address] February, [facility] [id number] [place] [address] February, Attention deficit disorder of childhood without mention of hyperactivity 314.00 ; Posttraumatic stress disorder 309.81 and Schizoaffective disorder, chronic 295.72 [facility] [id number] [place] [address] 29 Jan, 2015 [facility] [address] [id number] [place] [address] 14 Jan, 2015 [facility] [id number] [place] [address] Jan, [facility] [id number] [place] [address] Dec, [facility] [id number] [place] [address] Dec, [facility] [id number] [place] [address] Dec, [facility] [id number] [place] [address] 23 Dec, 2014 [facility] [id number] [place] [address] Dec, [facility] [id number] [place] [address] Dec, [facility] [address] [facility] [id number] [facility] [place] [address] Dec, [facility] [address] [id number] [facility] [place] [address] Dec, [facility] [address] [id number] [place] [address] Nov, [facility] [address] [id number] [facility] [place] [address] Nov, [facility] [address] [id number] [facility] [place] [address] Nov, [facility] [address] [id number] [place] [address] Nov, [facility] [address] [id number] [place] [address] Nov, [facility] [address] [id number] [place] [address] Nov, 2014 [facility] [address] [id number] [place] [address] Nov, [facility] [address] [id number] [place] [address] Nov, [facility] [address] [id number] [place] [address] Nov, [facility] [address] [id number] [place] [address] Nov, [facility] [address] [id number] [place] [address] Oct, [facility] [address] [id number] [place] [address] Oct, [facility] [address] [id number] [place] [address] Oct, [facility] [address] [id number] [place] [address] Oct, [facility] [address] [id number] [place] [address] 15 Oct, 2014 [facility] [address] [id number] [place] [address] Oct, [facility] [address] [id number] [place] [address] Oct, [facility] [address] [id number] [place] [address] 17 Sep, 2014 [facility] [address] [id number] [place] [address] Sep, [facility] [address] [id number] [place] [address] Sep, [facility] [address] [id number] [place] [address] Sep, [facility] [address] [id number] [place] [address] Aug, [facility] [address] [id number] [place] [address] Aug, [facility] [address] [id number] [place] [address] Aug, [facility] [address] [id number] [place] [address] Aug, [facility] [address] [id number] [place] [address] Aug, [facility] [address] [id number] [place] [address] Aug, [facility] [address] [id number] [place] [address] 29 Jul, 2014 [facility] [address] [id number] [place] [address] 29 Jul, 2014 [facility] [address] [id number] [place] [address] 24 Jul, 2014 [facility] [address] [id number] [place] [address] 24 Jul, 2014 [facility] [address] [id number] [place] [address] 15 Jul, 2014 [facility] [address] [facility] [id number] [place] [address] 15 Jul, 2014 [facility] [address] [id number] [place] [address] 27 Jun, 2013 [facility] [address] [id number] [place] [address] 27 Jun, 2013 [facility] [address] [facility] [id number] [place] [address] 26 Jun, 2013 [facility] [address] [facility] [id number] [place] [address] Jun, 2013 [facility] [address] [id number] [place] [address] Jun, 2013 [facility] [address] [id number] [place] [address] 26 Jun, 2013 [facility] [address] [facility] [id number] [place] [address] 16 Jun, 2013 [facility] [address] [id number] [place] [address] 16 Jun, 2013 [facility] [address] [id number] [place] [address] 16 Jun, 2013 [facility] [address] [id number] [place] [address] 16 Jun, 2013 [facility] [address] [facility] [id number] [place] [address] 04 Jun, 2013 [facility] [address] [id number] [place] [address] May, [facility] [address] [facility] [id number] [place] [address] May, [facility] [address] [id number] [place] [address] May, [facility] [address] [id number] [place] [address] May, [facility] [address] [id number] [facility] [place] [address] May, [facility] [address] [facility] [id number] [place] [address] May, [facility] [address] [id number] [facility] [place] [address] May, [facility] [address] [facility] [id number] [place] [address] May, [facility] [address] [id number] [place] [address] May, [facility] [address] [id number] [place] [address] May, [facility] [address] [id number] [place] [address] Apr, [facility] [address] [id number] [place] [address] Apr, [facility] [address] [facility] [id number] [place] [address] Apr, [facility] [address] [id number] [place] [address] Apr, [facility] [address] [id number] [place] [address] Apr, [facility] [address] [id number] [place] [address] Apr, [facility] [address] [facility] [id number] [place] [address] Apr, [facility] [address] [id number] [place] [address] Apr, [facility] [address] [id number] [place] [address] Apr, [facility] [address] [id number] [place] [address] Apr, [facility] [address] [facility] [id number] [place] [address] Mar, [facility] [address] [id number] [place] [address] Mar, [facility] [address] [id number] [place] [address] Mar, [facility] [address] [id number] [place] [address] 24 Mar, 2014 [facility] [address] [id number] [place] [address] 20 Mar, 2014 [facility] [address] [id number] [place] [address] Mar, [facility] [address] [id number] [place] [address] Mar, [facility] [address] [id number] [place] [address] 16 Mar, 2014 [facility] [address] [id number] [place] [address] 16 Mar, 2014 [facility] [address] [id number] [place] [address] Mar, [facility] [address] [id number] [place] [address] Mar, [facility] [address] [id number] [place] [address] Mar, [facility] [address] [id number] [place] [address] Mar, [facility] [address] [id number] [place] [address] 10 Mar, 2014 [facility] [address] [id number] [place] [address] 09 Mar, 2014 [facility] [address] [id number] [place] [address] 09 Mar, 2014 [facility] [address] [id number] [place] [address] Mar, [facility] [address] [id number] [place] [address] Mar, [facility] [address] [facility] [id number] [facility] [place] [address] Mar, [facility] [address] [facility] [id number] [place] [address] Mar, [facility] [address] [id number] [place] [address] February, [facility] [address] [id number] [facility] [place] [address] February, [facility] [address] [id number] [place] [address] February, [facility] [address] [id number] [place] [address] February, [facility] [address] [id number] [place] [address] February, [facility] [address] [facility] [id number] [place] [address] February, [facility] [address] [id number] [place] [address] February, [facility] [address] [id number] [place] [address] February, [facility] [address] [id number] [place] [address] February, [facility] [address] [facility] [id number] [place] [address] February, [facility] [address] [id number] [place] [address] February, [facility] [address] [id number] [place] [address] February, [facility] [address] [id number] [place] [address] February, [facility] [address] [id number] [place] [address] February, [facility] [address] [id number] [place] [address] February, [facility] [address] [id number] [place] [address] February, [facility] [address] [id number] [place] [address] February, [facility] [address] [id number] [place] [address] February, [facility] [address] [id number] [place] [address] February, [facility] [address] [id number] [place] [address] February, [facility] [address] [id number] [place] [address] February, [facility] [address] [id number] [place] [address] Jan, [facility] [address] [id number] [place] [address] Jan, [facility] [address] [id number] [place] [address] Jan, [facility] [address] [id number] [place] [address] Jan, [facility] [address] [id number] [place] [address] Jan, [facility] [address] [id number] [place] [address] Jan, [facility] [address] [id number] [place] [address] Jan, [facility] [address] [id number] [place] [address] Jan, [facility] [address] [id number] [place] [address] Dec, [facility] [address] [id number] [place] [address] Dec, [facility] [address] [id number] [place] [address] 20 Dec, 2013 [facility] [address] [id number] [place] [address] 19 Dec, 2013 [facility] [address] [id number] [place] [address] 19 Dec, 2013 [facility] [address] [id number] [place] [address] 15 Dec, 2013 [facility] [address] [id number] [place] [address] 15 Dec, 2013 [facility] [address] [id number] [place] [address] 11 Dec, 2013 [facility] [address] [id number] [place] [address] Dec, [facility] [address] [id number] [place] [address] 10 Dec, 2013 [facility] [address] [id number] [place] [address] 18 Nov, 2013 [facility] [address] [id number] [place] [address] Nov, [facility] [address] [id number] [place] [address] Nov, [facility] [address] [id number] [place] [address] Nov, [facility] [address] [id number] [place] [address] Nov, [facility] [address] [id number] [place] [address] Oct, [facility] [address] [id number] [place] [address] Oct, [facility] [address] [id number] [place] [address] Oct, [facility] [address] [id number] [place] [address] Sep, [facility] [address] [id number] [place] [address] Sep, [facility] [address] [id number] [place] [address] Sep, [facility] [address] [id number] [place] [address] Sep, [facility] [address] [id number] [place] [address] Aug, [facility] [address] [id number] [place] [address] Aug, [facility] [address] [id number] [place] [address] Jul, [facility] [address] [id number] [place] [address] Jul, [facility] [address] [id number] [place] [address] Jul, [facility] [address] [id number] [place] [address] Jul, [facility] [address] [id number] [place] [address] Jul, [facility] [address] [id number] [place] [address] Jun, 2012 [facility] [address] [id number] [place] [address] 25 Jun, 2012 [facility] [address] [id number] [place] [address] 19 Sep, 2012 [facility] [address] [id number] [place] [address] 18 Sep, 2012 [facility] [address] [id number] [place] [address] 16 Jun, 2012 [facility] [address] [id number] [facility] [place] [address] Jun, [facility] [address] [id number] [place] [address] Jun, [facility] [address] [id number] [place] [address] May, [facility] [address] [id number] [place] [address] May, [facility] [address] [id number] [place] [address] Apr, [facility] [address] [id number] [place] [address] Apr, [facility] [address] [id number] [place] [address] Apr, [facility] [address] [id number] [place] [address] Mar, [facility] [address] [id number] [place] [address] Mar, [facility] [address] [id number] [place] [address] February, [facility] [address] [id number] [place] [address] February, [facility] [address] [id number] [place] [address] February, [facility] [address] [id number] [place] [address] February, [facility] [address] [id number] [place] [address] Jan, [facility] [address] [id number] [place] [address] 17 Jan, 2013 [facility] [address] [id number] [place] [address] 16 Jan, 2013 [facility] [address] [id number] [place] [address] Dec, [facility] [address] [id number] [place] [address] Dec, [facility] [address] [id number] [place] [address] Dec, [facility] [address] [id number] [place] [address] 08 Dec, 2012 [facility] [address] [id number] [place] [address] Nov, [facility] [address] [id number] [place] [address] Nov, [facility] [address] [id number] [place] [address] Oct, [facility] [address] [id number] [place] [address] Oct, [facility] [id number] [place] [address] Oct, [facility] [address] [id number] [place] [address] Oct, [facility] [address] [id number] [place] [address] Aug, [facility] [address] [id number] [place] [address] Aug, [facility] [id number] [place] [address] Jun, [facility] [address] [id number] [place] [address] May, [facility] [address] [id number] [place] [address] May, [facility] [address] [id number] [place] [address] Apr, [facility] [address] [id number] [place] [address] Apr, [facility] [address] [id number] [place] [address] 05 Apr, 2012 [facility] [address] [id number] [facility] [place] [address] Mar, [facility] [address] [id number] [place] [address] Mar, [facility] [address] [id number] [place] [address] Mar, [facility] [address] [id number] [place] [address] Mar, [facility] [address] [id number] [place] [address] Mar, [facility] [address] [id number] [place] [address] February, [facility] [address] [id number] [place] [address] February, [facility] [address] [id number] [place] [address] February, [facility] [address] [id number] [place] [address] February, [facility] [address] [id number] [place] [address] February, [facility] [address] [id number] [place] [address] February, [facility] [address] [id number] [place] [address] February, [facility] [address] [id number] [place] [address] Jan, [facility] [address] [id number] [place] [address] 18 Jan, 2012 [facility] [address] [id number] [place] [address] 17 Jan, 2012 [facility] [address] [id number] [place] [address] 13 Jan, 2012 [facility] [address] [id number] [place] [address] 10 Jan, 2012 [facility] [address] [id number] [place] [address] 04 Jan, 2012 [facility] [address] [id number] [place] [address] 30 Dec, 2011 [facility] [address] [id number] [place] [address] 24 Dec, 2011 [facility] [address] [id number] [place] [address] 20 Dec, 2011 [facility] [address] [id number] [place] [address] 13 Dec, 2011 [facility] [address] [id number] [place] [address] Dec, [facility] [address] [id number] [place] [address] Nov, [facility] [address] [id number] [place] [id number] Nov, [facility] [address] [id number] [place] [address] Nov, [facility] [address] [id number] [place] [address] 14 Nov, 2011 [facility] [address] [id number] [place] [address] Nov, [facility] [address] [id number] [place] [address] Nov, [facility] [address] [id number] [place] [address] Oct, [facility] [address] [id number] [place] [address] Oct, [facility] [address] [id number] [place] [address] Oct, [facility] [address] [id number] [place] [address] Oct, [facility] [address] [id number] [place] [address] Oct, [facility] [address] [id number] [place] [address] Sep, [facility] [address] [id number] [place] [address] Sep, [facility] [address] [id number] [place] [address] Sep, [facility] [address] [id number] [place] [address] Sep, [facility] [address] [id number] [place] [address] Sep, [facility] [address] [id number] [place] [address] Sep, [facility] [address] [id number] [place] [address] Sep, [facility] [address] [id number] [place] [address] Sep, [facility] [address] [id number] [place] [address] Sep, [facility] [address] [id number] [place] [address] Aug, [facility] [address] [id number] [place] [address] Aug, [facility] [address] [id number] [place] [address] Aug, [facility] [address] [id number] [place] [address] Aug, [facility] [address] [id number] [place] [address] Aug, [facility] [address] [id number] [place] [address] Aug, [facility] [address] [id number] [place] [address] 16 Aug, 2011 [facility] [address] [id number] [place] [address] 16 Aug, 2011 [facility] [address] [id number] [place] [address] Aug, [facility] [address] [id number] [place] [address] Aug, [facility] [address] [id number] [place] [address] Aug, [facility] [address] [id number] [place] [address] Aug, [facility] [address] [id number] [place] [address] Jul, [facility] [address] [id number] [place] [address] Jul, [facility] [address] [id number] [place] [address] Jul, [facility] [address] [id number] [place] [address] Jul, [facility] [address] [id number] [place] [address] Jul, [facility] [address] [id number] [place] [address] Jul, [facility] [address] [id number] [place] [address] Jul, [facility] [address] [id number] [place] [address] Jul, [facility] [address] [id number] [place] [address] Jul, [facility] [address] [id number] [place] [address] Jul, [facility] [address] [id number] [place] [address] Nov, [facility] [address] [id number] [place] [address] Aug, [facility] [address] [id number] [place] [address] Aug, [facility] [address] [id number] [place] [address] Aug, [facility] [address] [id number] [place] [address] Aug, [facility] [address] [id number] [place] [address] Jul, IMMUNIZATIONS No Known Immunizations SOCIAL HISTORY Never Assessed REASON FOR VISIT PLAN OF CARE VITAL SIGNS Height 65.25 in 2014 Weight 199.12 lbs 2014 Temperature 97.9 degrees Fahrenheit 2014 Heart Rate 72 bpm 2014 Respiratory Rate 24 2014 Blood pressure systolic 104 mmHg 2014 Blood pressure diastolic 96 mmHg 2014 MEDICATIONS Unknown Medications RESULTS No Results PROCEDURES [...]
--- OUTSIDE RECORDS SUMMARY | 2020-04-04 01:53 | XMS REPORT ---
Author Author Kaila Onofre Doctor Organization [facility] Address Unknown Phone Unavailable Care Team Providers Care Resource Conservationist Name Role Phone Migration, Doctor Unavailable Unavailable PROBLEMS Type Condition ICD9-CM Code EEC00-LH Code Onset Dates Condition S tatus SNOMED Code Problem Paranoid schizophrenia F20.0 Active 26312092 Problem Borderline personality disorder F60.3 Active 09280070 Problem Schizoaffective disorder, depressive type F25.1 Active 62311297 Problem Schizoaffective disorder, unspecified F25.9 Active 15086075 Problem Attention deficit hyperactivity disorder (ADHD), inattentive type, 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 94453719 Problem Posttraumatic stress disorder F43.10 Active 87067055 Problem High risk medication use Z79.899 Activ e [id number] ALLERGIES No Information ENCOUNTERS Encounter Location Date Diagnosis [place] [address] [address] Oct, [place] [address] [address] Oct, [place] [address] [address] Oct, [place] [address] [address] Sep, Paranoid schizophrenia F20.0 ; Attention deficit hyperactivity disorder (ADHD), inattentive type, 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 ; Posttraumatic stress disorder F43.10 and Borderline personality disorder F60.3 [place] [address] [address] Aug, Paranoid schizophrenia F20.0 ; Attention deficit hyperactivity disorder (ADHD), inattentive type, 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 ; Posttraumatic stress disorder F43.10 and Borderline personality disorder F60.3 [place] [address] [address] Aug, [facility] [address] [facility] [id number] [address] [place] [address] Aug, Acute bronchitis, unspecifie d organism J20.9 [facility] [address] [address] Aug, [facility] [address] [address] Aug, [facility] [address] [address] Jul, Paranoid schizophrenia F20.0 ; Attention deficit hyperactivity disorder (ADHD), inattentive type, 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 ; Posttraumatic stress disorder F43.10 and Borderline personality disorder F60.3 [facility] [address] [address] Jul, [facility] [address] [address] Jun, Paranoid schizophrenia F20.0 ; Other katherin g term (current) 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 Z79.899 ; Attention deficit hyperactivity disorder (ADHD), inattentive type, 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 ; Posttraumatic stress disorder F43.10 and Borderline personality disorder F60.3 [facility] [address] [address] Jun, Paranoid schizophrenia F20.0 ; Attention deficit hyperactivity disorder (ADHD), inattentive type, 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 ; Posttraumatic stress disorder F43.10 ; Borderline personality disorder F60.3 and Other fci (current) drug therapy Z79.899 [facility] [address] [address] Apr, Paranoid schizophrenia F20.0 ; Posttraum atic stress disorder F43.10 ; Attention deficit hyperactivity disorder (ADHD), inattentive type, 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10 ; Attention deficit hyperactivity disorder (ADHD), inattentive type, 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 and Borderline personality disorder F60.3 [place] [address] [address] February, Paranoid schizophrenia F20.0 [place] [address] [address] Jan, Paranoid schizophrenia F20.0 ; Posttraum atic stress disorder F43.10 ; Attention deficit hyperactivity disorder (ADHD), inattentive type, 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 and Borderline personality disorder F60.3 [place] [address] [address] Dec, Paranoid schizophrenia F20.0 ; Posttraum atic stress disorder F43.10 ; Attention deficit hyperactivity disorder (ADHD), inattentive type, 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 and Borderline personality disorder F60.3 [place] [address] [address] Dec, Paranoid schizophrenia F20.0 ; Posttraum atic stress disorder F43.10 ; Attention deficit hyperactivity disorder (ADHD), inattentive type, 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 and Borderline personality disorder F60.3 [place] [address] [address] Oct, Paranoid schizophrenia F20.0 ; Posttraum atic stress disorder F43.10 ; Attention deficit hyperactivity disorder (ADHD), inattentive type, 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 and Borderline personality disorder F60.3 [facility] [address] [place] [id number] [place] [address] Oct, Paranoid schizophrenia F20.0 ; Posttraum atic stress disorder F43.10 ; Attention deficit hyperactivity disorder (ADHD), inattentive type, 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 and Borderline personality disorder F60.3 [facility] [address] [address] Aug, [facility] [address] [address] Aug, Paranoid schizophrenia F20.0 ; Posttraum atic stress disorder F43.10 ; Attention deficit hyperactivity disorder (ADHD), inattentive type, 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10 ; Attention deficit hyperactivity disorder (ADHD), inattentive type, 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 and Borderline personality disorder F60.3 [facility] [address] [place] [id number] [place] [address] May, [facility] [address] [address] May, Paranoid schizophrenia F20.0 [facility] [address] [address] May, Paranoid schizophrenia F20.0 ; Posttraum atic stress disorder F43.10 ; Attention deficit hyperactivity disorder (ADHD), inattentive type, 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 and Borderline personality disorder F60.3 [facility] [address] [address] Apr, [facility] [address] [address] Apr, Paranoid schizophrenia F20.0 ; Posttraum atic stress disorder F43.10 ; Attention deficit hyperactivity disorder (ADHD), inattentive type, 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 and Borderline personality disorder F60.3 [facility] [address] [address] Apr, [facility] [address] [address] Apr, Schizoaffective disorder, depressive typ e F25.1 and Borderline personality disorder F60.3 [facility] [address] [address] Apr, Paranoid schizophrenia F20.0 ; Posttraum atic stress disorder F43.10 ; Attention deficit hyperactivity disorder (ADHD), inattentive type, 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 and Borderline personality disorder F60.3 [facility] [address] [address] Apr, [facility] [address] [address] Apr, Paranoid schizophrenia F20.0 ; Posttraum atic stress disorder F43.10 ; Attention deficit hyperactivity disorder (ADHD), inattentive type, 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 and Borderline personality disorder F60.3 [facility] [address] [place] [id number] [place] [address] Apr, [facility] [address] [address] Mar, Paranoid schizophrenia F20.0 [facility] [address] [address] Mar, [facility] [address] [address] Mar, Paranoid schizophrenia F20.0 ; Posttraum atic stress disorder F43.10 ; Attention deficit hyperactivity disorder (ADHD), inattentive type, 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 and Borderline personality disorder F60.3 [facility] [address] [address] February, Paranoid schizophrenia F20.0 [facility] [address] [address] February, Paranoid schizophrenia F20.0 ; Posttraum atic stress disorder F43.10 ; Attention deficit hyperactivity disorder (ADHD), inattentive type, 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 and Borderline personality disorder F60.3 [facility] [address] [address] February, Paranoid schizophrenia F20.0 ; Posttraum atic stress disorder F43.10 ; Attention deficit hyperactivity disorder (ADHD), inattentive type, 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 and Borderline personality disorder F60.3 [facility] [address] [address] February, [facility] [address] [address] February, Paranoid schizophrenia F20.0 [facility] [address] [address] February, Paranoid schizophrenia F20.0 [facility] [address] [address] February, Paranoid schizophrenia F20.0 ; Posttraum atic stress disorder F43.10 ; Attention deficit hyperactivity disorder (ADHD), inattentive type, 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 and Borderline personality disorder F60.3 [facility] [address] [address] Jan, Paranoid schizophrenia F20.0 ; Posttraum atic stress disorder F43.10 ; Attention deficit hyperactivity disorder (ADHD), inattentive type, 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 and Borderline personality disorder F60.3 [facility] [address] [place] [id number] Jan, Paranoid schizophrenia F20.0 [facility] [address] [place] [id number] [place] [address] Jan, Paranoid schizophrenia F20.0 [facility] [address] [place] [id number] [place] [address] Jan, Paranoid schizophrenia F20.0 ; Posttraum atic stress disorder F43.10 ; Attention deficit hyperactivity disorder (ADHD), inattentive type, 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 and Borderline personality disorder F60.3 [facility] [address] [place] [id number] [place] [address] Dec, [facility] [address] [address] Nov, Paranoid schizophrenia F20.0 ; Posttraum atic stress disorder F43.10 ; Attention deficit hyperactivity disorder (ADHD), inattentive type, 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 and Borderline personality disorder F60.3 [facility] [address] [address] Nov, [facility] [address] [address] Oct, Paranoid schizophrenia F20.0 [facility] [address] [address] Oct, Paranoid schizophrenia F20.0 ; Posttraum atic stress disorder F43.10 ; Attention deficit hyperactivity disorder (ADHD), inattentive type, 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 ; Borderline personality disorder F60.3 and 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 Z79.899 [facility] [address] [place] [id number] [place] [address] Oct, [facility] [address] [place] [id number] [place] [address] Oct, [facility] [address] [address] Sep, [facility] [address] [address] Sep, Paranoid schizophrenia F20.0 ; Posttraum atic stress disorder F43.10 ; Attention deficit hyperactivity disorder (ADHD), inattentive type, 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 and Borderline personality disorder F60.3 [facility] [address] [address] Sep, Paranoid schizophrenia F20.0 [facility] [address] [place] [address] Aug, Paranoid schizophrenia F20.0 ; Posttraum atic stress disorder F43.10 ; Attention deficit hyperactivity disorder (ADHD), inattentive type, 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 and Borderline personality disorder F60.3 [facility] [address] [address] Aug, Paranoid schizophrenia F20.0 ; Posttraum atic stress disorder F43.10 ; Attention deficit hyperactivity disorder (ADHD), inattentive type, 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 and Borderline personality disorder F60.3 [facility] [address] [address] Aug, [facility] [address] [address] Jul, Paranoid schizophrenia F20.0 ; Posttraum atic stress disorder F43.10 ; Attention deficit hyperactivity disorder (ADHD), inattentive type, 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 and Borderline personality disorder F60.3 [facility] [address] [address] Jul, Paranoid schizophrenia F20.0 [facility] [address] [address] Jul, Paranoid schizophrenia F20.0 ; Posttraum atic stress disorder F43.10 ; Attention deficit hyperactivity disorder (ADHD), inattentive type, 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 and Borderline personality disorder F60.3 [facility] [address] [address] Jun, Paranoid schizophrenia F20.0 ; Posttraum atic stress disorder F43.10 ; Attention deficit hyperactivity disorder (ADHD), inattentive type, 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 and Borderline personality disorder F60.3 [facility] [address] [address] May, 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 Z 79.899 [facility] [address] [address] May, [facility] [address] [address] May, [facility] [address] [address] May, Attention deficit hyperactivity disorder (ADHD), inattentive type, 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 [facility] [address] [address] May, [facility] [address] [address] May, Attention deficit hyperactivity disorder (ADHD), inattentive type, 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 [facility] [address] [address] May, Paranoid schizophrenia F20.0 ; Posttraum atic stress disorder F43.10 ; Attention deficit hyperactivity disorder (ADHD), inattentive type, 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 and 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 Z79.899 [facility] [address] [address] Apr, Paranoid schizophrenia F20.0 [facility] [address] [address] Apr, Paranoid schizophrenia F20.0 ; Posttraum atic stress disorder F43.10 and Attention deficit hyperactivity disorder (ADHD), inattentive type, 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 [facility] [address] [place] [id number] [place] [address] February, [facility] [address] [address] February, Paranoid schizophrenia F20.0 ; Posttraum atic stress disorder F43.10 and Attention deficit hyperactivity disorder (ADHD), inattentive type, 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 [facility] [address] [place] [id number] February, Paranoid schizophrenia F20.0 ; Posttraum atic stress disorder F43.10 and Attention deficit hyperactivity disorder (ADHD), inattentive type, 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 [facility] [address] [place] [id number] Jan, Paranoid schizophrenia F20.0 ; Posttraum atic stress disorder F43.10 and Attention deficit hyperactivity disorder (ADHD), inattentive type, 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 [facility] [address] [id number] Dec, Dental examination Z01.20 [facility] [address] [id number] Nov, Dental examination Z01.20 [facility] [address] [id number] Nov, Dental examination Z01.20 [facility] [address] [place] [id number] Nov, Dental caries K02.9 [facility] [address] [address] Nov, High risk medication use Z79.899 [facility] [address] [place] [id number] Nov, Paranoid schizophrenia F20.0 ; Posttraum atic stress disorder F43.10 ; Attention deficit hyperactivity disorder (ADHD), inattentive type, 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 and Borderline personality disorder in adult F60.3 [facility] [address] [id number] Oct, Dental caries K02.9 [facility] [address] [address] Sep, Paranoid schizophrenia F20.0 ; Posttraum atic stress disorder F43.10 and Attention deficit hyperactivity disorder (ADHD), inattentive type, 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 [facility] [address] [address] 16 Aug, 2016 Paranoid schizophrenia F20.0 ; Posttraum atic stress disorder F43.10 and Attention deficit hyperactivity disorder (ADHD), inattentive type, 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 [facility] [address] [facility] [id number] [address] [place] [address] Aug, Strep throat J02.0 and Cough R05 [facility] [address] [address] Aug, [facility] [address] [address] 24 Jul, 2016 Paranoid schizophrenia F20.0 ; Posttraum atic stress disorder F43.10 and Attention deficit hyperactivity disorder (ADHD), inattentive type, 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 [facility] [address] [address] Jul, [facility] [address] [address] Jun, Paranoid schizophrenia F20.0 ; Posttraum atic stress disorder F43.10 and Attention deficit hyperactivity disorder (ADHD), inattentive type, 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 [facility] [address] [id number] [place] [id number] Jun, Dental examination Z01.20 [facility] [address] [place] [id number] [place] [address] Jun, [facility] [address] [address] May, Paranoid schizophrenia F20.0 [facility] [address] [address] May, Paranoid schizophrenia F20.0 ; Posttraum atic stress disorder F43.10 and Attention deficit hyperactivity disorder (ADHD), inattentive type, 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 [facility] [address] [id number] [place] [address] May, [facility] [address] [id number] [place] [address] May, Paranoid schizophrenia F20.0 [facility] [address] [id number] [place] [address] May, [facility] [address] [id number] [place] [address] May, Paranoid schizophrenia F20.0 [facility] [address] [id number] [place] [address] May, Schizoaffective disorder, unspecified F2 5.9 [facility] [address] [id number] [place] [address] May, Schizoaffective disorder, unspecified F2 5.9 [facility] [address] [id number] [place] [address] May, [facility] [address] [id number] [place] [address] May, Paranoid schizophrenia F20.0 [facility] [address] [id number] [place] [address] May, Paranoid schizophrenia F20.0 ; Posttraum atic stress disorder F43.10 and Attention deficit hyperactivity disorder (ADHD), inattentive type, 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 [facility] [address] [id number] [place] [address] Mar, [facility] [address] [id number] [place] [address] Mar, Paranoid schizophrenia F20.0 ; Posttraum atic stress disorder F43.10 and Attention deficit hyperactivity disorder (ADHD), inattentive type, 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 [facility] [address] [id number] [place] [address] 16 Mar, 2016 Paranoid schizophrenia F20.0 [facility] [address] [id number] [place] [address] Mar, Paranoid schizophrenia F20.0 ; Attention deficit hyperactivity disorder (ADHD), inattentive type, 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 and Posttraumatic stress disorder F43.10 [facility] [address] [address] Mar, [facility] [address] [address] Mar, Paranoid schizophrenia F20.0 ; Posttraum atic stress disorder F43.10 and Attention deficit hyperactivity disorder (ADHD), inattentive type, 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 [facility] [address] [address] February, [facility] [address] [address] February, [facility] [address] [address] February, [facility] [address] [address] February, [facility] [address] [address] Jan, Paranoid schizophrenia F20.0 [facility] [address] [id number] Jan, Dental examination Z01.20 [facility] [address] [id number] Jan, Dental caries K02.9 [facility] [address] [id number] Jan, Dental examination Z01.20 [facility] [address] [id number] Dec, Encounter for dental examination Z01.20 [facility] [address] [address] Dec, Paranoid schizophrenia F20.0 [facility] [address] [id number] Dec, Dental examination Z01.20 [facility] [address] [address] Dec, [facility] [address] [address] Dec, Paranoid schizophrenia F20.0 ; Posttraum atic stress disorder F43.10 and Attention deficit hyperactivity disorder (ADHD), inattentive type, 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 [facility] [address] [address] Nov, Schizoaffective disorder, unspecified F2 5.9 [facility] [address] [address] Oct, Paranoid schizophrenia F20.0 [facility] [address] [address] Oct, [facility] [address] [address] Sep, Paranoid schizophrenia F20.0 ; Posttraum atic stress disorder F43.10 and Attention deficit hyperactivity disorder (ADHD), inattentive type, 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 [facility] [address] [address] Sep, [facility] [address] [address] Sep, Paranoid schizophrenia F20.0 ; Posttraum atic stress disorder F43.10 and Attention deficit hyperactivity disorder (ADHD), inattentive type, 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 [facility] [address] [address] Aug, Paranoid schizophrenia F20.0 [facility] [address] [address] Aug, [facility] [address] [address] Aug, Posttraumatic stress disorder F43.10 ; P aranoid schizophrenia F20.0 and Attention deficit hyperactivity disorder (ADHD), inattentive type, 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 [facility] [address] [address] Jul, Bipolar disorder, unspecified F31.9 [facility] [address] [address] Jul, [facility] [address] [address] Jun, [facility] [address] [address] Jun, Schizoaffective disorder, chronic 295.72 ; Posttraumatic stress disorder 309.81 and Attention deficit disorder of childhood without mention of hyperactivity 314.00 [place] [address] [address] May, [facility] [address] [address] May, [facility] [address] [address] May, Schizoaffective disorder, chronic 295.72 ; Posttraumatic stress disorder 309.81 ; Attention deficit disorder of childhood without mention of hyperactivity 314.00 and Bipolar disorder, unspecified 296.80 [facility] [address] [address] [address] Apr, Schizoaffective disorder, chronic 295.72 [facility] [address] [address] Apr, [facility] [address] [address] Apr, Schizoaffective disorder, chronic 295.72 ; Posttraumatic stress disorder 309.81 and Attention deficit disorder of childhood without mention of hyperactivity 314.00 [facility] [address] [address] Mar, Disorganized schizophrenia, 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 [facility] [address] [address] Mar, [facility] [address] [address] [place] [address] Mar, [facility] [address] [id number] [place] [address] Mar, [facility] [address] [id number] [place] [address] Mar, [facility] [address] [id number] [place] [address] February, Schizoaffective disorder, chronic 295.72 [facility] [address] [id number] [place] [address] February, [facility] [address] [id number] [place] [address] February, Attention deficit disorder of childhood without mention of hyperactivity 314.00 ; Posttraumatic stress disorder 309.81 and Schizoaffective disorder, chronic 295.72 [facility] [address] [id number] [place] [address] Jan, [facility] [address] [id number] [place] [address] Jan, [facility] [address] [id number] [place] [address] Jan, [facility] [address] [id number] [place] [address] Dec, [facility] [address] [id number] [place] [address] Dec, [facility] [address] [id number] [place] [address] Dec, [facility] [address] [id number] [place] [address] Dec, [facility] [address] [id number] [place] [address] Dec, [facility] [address] [id number] [place] [address] Dec, [facility] [id number] [place] [address] Dec, [facility] [address] [id number] [place] [address] Dec, [facility] [address] [id number] [place] [address] Nov, [facility] [address] [id number] [place] [address] Nov, [facility] [address] [id number] [place] [address] Nov, 2014 [facility] [address] [id number] [place] [address] Nov, [facility] [address] [id number] [place] [address] Nov, 2014 [facility] [address] [id number] [place] [address] Nov, 2014 [facility] [address] [id number] [place] [address] Nov, 2014 [facility] [address] [id number] [place] [address] Nov, [facility] [address] [id number] [place] [address] Nov, [facility] [address] [id number] [place] [address] Nov, [facility] [address] [id number] [place] [address] Oct, [facility] [address] [id number] [place] [address] Oct, [facility] [address] [id number] [place] [address] Oct, [facility] [address] [id number] [place] [address] Oct, [facility] [address] [id number] [place] [address] Oct, [facility] [address] [id number] [place] [address] Oct, [facility] [address] [id number] [place] [address] Oct, [facility] [address] [id number] [place] [address] 17 Sep, 2014 [facility] [address] [id number] [place] [address] Sep, [facility] [address] [id number] [place] [address] Sep, [facility] [address] [id number] [place] [address] Sep, [facility] [address] [id number] [place] [address] Aug, [facility] [address] [id number] [place] [address] Aug, [facility] [address] [id number] [place] [address] Aug, [facility] [address] [id number] [place] [address] Aug, [facility] [address] [id number] [place] [address] Aug, [facility] [address] [id number] [place] [address] Aug, [facility] [address] [id number] [place] [address] Jul, [facility] [address] [id number] [place] [address] Jul, [facility] [address] [id number] [place] [address] Jul, [facility] [address] [id number] [place] [address] Jul, [facility] [address] [id number] [place] [address] 15 Jul, 2014 [facility] [address] [id number] [place] [address] 15 Jul, 2014 [facility] [address] [facility] [id number] [place] [address] 27 Jun, 2013 [facility] [address] [facility] [id number] [place] [address] 27 Jun, 2013 [facility] [address] [id number] [place] [address] 26 Jun, 2013 [facility] [address] [facility] [id number] [place] [address] 26 Jun, 2013 [facility] [address] [id number] [place] [address] Jun, 2013 [facility] [address] [id number] [place] [address] Jun, 2013 [facility] [address] [id number] [place] [address] 16 Jun, 2013 [facility] [address] [facility] [id number] [place] [address] 16 Jun, 2013 [facility] [address] [id number] [place] [address] 16 Jun, 2013 [facility] [address] [facility] [id number] [place] [address] 16 Jun, 2013 [facility] [address] [id number] [place] [address] Jun, 2013 [facility] [address] [facility] [id number] [place] [address] May, [facility] [address] [id number] [place] [address] May, [facility] [address] [facility] [id number] [place] [address] May, [facility] [address] [id number] [place] [address] May, [facility] [address] [id number] [place] [address] May, [facility] [address] [id number] [place] [address] May, [facility] [address] [facility] [id number] [place] [address] May, [facility] [address] [id number] [place] [address] May, [facility] [address] [facility] [id number] [place] [address] May, [facility] [address] [id number] [place] [address] May, [facility] [address] [id number] [place] [address] Apr, [facility] [address] [id number] [place] [address] Apr, [facility] [address] [id number] [place] [address] Apr, [facility] [address] [facility] [id number] [place] [address] Apr, [facility] [address] [id number] [place] [address] Apr, [facility] [address] [id number] [place] [address] Apr, [facility] [address] [id number] [place] [address] Apr, [facility] [address] [facility] [id number] [place] [address] Apr, [facility] [address] [id number] [place] [address] Apr, [facility] [address] [id number] [place] [address] Apr, [facility] [address] [id number] [place] [address] Mar, [facility] [address] [facility] [id number] [place] [address] Mar, [facility] [address] [id number] [place] [address] Mar, [facility] [address] [id number] [place] [address] 24 Mar, 2014 [facility] [address] [id number] [place] [address] Mar, [facility] [address] [facility] [id number] [place] [address] 18 Mar, 2014 [facility] [address] [id number] [place] [address] 18 Mar, 2014 [facility] [address] [id number] [place] [address] 16 Mar, 2014 [facility] [address] [id number] [place] [address] 16 Mar, 2014 [facility] [address] [id number] [place] [address] Mar, [facility] [address] [id number] [place] [address] Mar, [facility] [address] [id number] [place] [address] Mar, [facility] [address] [id number] [place] [address] Mar, [facility] [address] [id number] [place] [address] Mar, [facility] [address] [id number] [place] [address] 09 Mar, 2014 [facility] [address] [id number] [place] [address] Mar, [facility] [address] [id number] [place] [address] 09 Mar, 2014 [facility] [address] [id number] [place] [address] Mar, [facility] [address] [id number] [place] [address] Mar, [facility] [address] [facility] [id number] [place] [address] Mar, [facility] [address] [facility] [id number] [place] [address] February, [facility] [address] [id number] [place] [address] February, [facility] [address] [id number] [place] [address] February, [facility] [address] [id number] [place] [address] February, [facility] [address] [id number] [place] [address] February, [facility] [address] [id number] [place] [address] February, [facility] [address] [facility] [id number] [place] [address] February, [facility] [address] [id number] [place] [address] February, [facility] [address] [id number] [place] [address] February, [facility] [address] [id number] [place] [address] February, [facility] [address] [facility] [id number] [place] [address] February, [facility] [address] [id number] [place] [address] February, [facility] [address] [facility] [id number] [place] [address] February, [facility] [address] [id number] [place] [address] February, [facility] [address] [id number] [place] [address] February, [facility] [address] [id number] [place] [address] February, [facility] [address] [id number] [place] [address] February, [facility] [address] [id number] [place] [address] February, [facility] [address] [id number] [place] [address] February, [facility] [address] [id number] [place] [address] February, [facility] [address] [id number] [place] [address] February, [facility] [address] [id number] [place] [address] Jan, [facility] [address] [id number] [place] [address] Jan, [facility] [address] [id number] [place] [address] Jan, [facility] [address] [id number] [place] [address] Jan, [facility] [address] [id number] [place] [address] Jan, [facility] [address] [id number] [place] [address] Jan, [facility] [address] [id number] [place] [address] Jan, [facility] [address] [id number] [place] [address] Jan, [facility] [address] [id number] [place] [address] Dec, [facility] [address] [id number] [place] [address] Dec, [facility] [address] [id number] [place] [address] 20 Dec, 2013 [facility] [address] [id number] [place] [address] 19 Dec, 2013 [facility] [address] [id number] [place] [address] 19 Dec, 2013 [facility] [address] [id number] [place] [address] 15 Dec, 2013 [facility] [address] [id number] [place] [address] 15 Dec, 2013 [facility] [address] [id number] [place] [address] 11 Dec, 2013 [facility] [address] [id number] [place] [address] 10 Dec, 2013 [facility] [address] [id number] [place] [address] 10 Dec, 2013 [facility] [address] [id number] [place] [address] 18 Nov, 2013 [facility] [address] [id number] [place] [address] Nov, [facility] [address] [id number] [place] [address] Nov, [facility] [address] [id number] [place] [address] Nov, [facility] [address] [id number] [place] [address] 05 Nov, 2013 [facility] [address] [id number] [place] [address] Oct, [facility] [address] [id number] [place] [address] Oct, [facility] [address] [id number] [place] [address] 16 Oct, 2013 [facility] [address] [id number] [place] [address] Sep, [facility] [address] [id number] [place] [address] Sep, [facility] [address] [id number] [place] [address] Sep, [facility] [address] [id number] [place] [address] Sep, [facility] [address] [id number] [place] [address] Aug, [facility] [address] [id number] [place] [address] Aug, [facility] [address] [id number] [place] [address] Jul, [facility] [address] [id number] [place] [address] Jul, [facility] [address] [id number] [place] [address] Jul, [facility] [address] [id number] [place] [address] Jul, [facility] [address] [id number] [place] [address] Jul, [facility] [address] [id number] [place] [address] Jun, [facility] [address] [id number] [place] [address] 25 Jun, 2012 [facility] [address] [id number] [place] [address] 19 Sep, 2012 [facility] [address] [id number] [place] [address] 18 Sep, 2012 [facility] [address] [id number] [place] [address] 16 Sep, 2012 [facility] [address] [id number] [place] [address] 12 Sep, 2012 [facility] [address] [id number] [facility] [place] [address] Jun, [facility] [address] [id number] [place] [address] May, [facility] [address] [id number] [place] [address] May, [facility] [address] [id number] [place] [address] Apr, [facility] [address] [id number] [place] [address] Apr, [facility] [address] [id number] [place] [address] Apr, [facility] [address] [id number] [place] [address] Mar, [facility] [address] [id number] [place] [address] Mar, [facility] [address] [id number] [place] [address] February, [facility] [address] [id number] [place] [address] February, [facility] [address] [id number] [place] [address] February, [facility] [address] [id number] [place] [address] February, [facility] [address] [id number] [place] [address] Jan, [facility] [address] [id number] [place] [address] Jan, [facility] [address] [id number] [place] [address] Jan, [facility] [address] [id number] [place] [address] Dec, [facility] [address] [id number] [place] [address] Dec, [facility] [address] [id number] [place] [address] Dec, [facility] [address] [id number] [place] [address] Dec, [facility] [address] [id number] [place] [address] Nov, [facility] [address] [id number] [place] [address] Nov, [facility] [address] [id number] [place] [address] Oct, [facility] [address] [id number] [place] [address] Oct, [facility] [address] [id number] [place] [address] Oct, [facility] [id number] [place] [address] Oct, [facility] [address] [id number] [place] [address] Aug, [facility] [address] [id number] [place] [address] Aug, [facility] [address] [id number] [place] [address] Jun, [facility] [address] [id number] [place] [address] May, [facility] [address] [id number] [place] [address] May, [facility] [address] [id number] [place] [address] Apr, [facility] [address] [id number] [place] [address] Apr, [facility] [address] [id number] [place] [address] Apr, [facility] [address] [id number] [place] [address] 20 Mar, 2012 [facility] [address] [id number] [facility] [place] [address] Mar, [facility] [address] [id number] [place] [address] 13 Mar, 2012 [facility] [address] [id number] [place] [address] Mar, [facility] [address] [id number] [place] [address] Mar, [facility] [address] [id number] [place] [address] February, [facility] [address] [id number] [place] [address] February, [facility] [address] [id number] [place] [address] February, [facility] [address] [id number] [place] [address] February, [facility] [address] [id number] [place] [address] February, [facility] [address] [id number] [place] [address] February, [facility] [address] [id number] [place] [address] February, [facility] [id number] [place] [address] Jan, [facility] [address] [id number] [place] [address] 18 Jan, 2012 [facility] [id number] [place] [address] 17 Jan, 2012 [facility] [id number] [place] [address] 13 Jan, 2012 [facility] [id number] [place] [address] 10 Jan, 2012 [facility] [address] [id number] [place] [address] Jan, [facility] [id number] [place] [address] 30 Dec, 2011 [facility] [id number] [place] [address] 24 Dec, 2011 [facility] [id number] [place] [address] Dec, [facility] [id number] [place] [address] Dec, [facility] [id number] [place] [address] 06 Dec, 2011 [facility] [id number] [place] [address] Nov, [facility] [id number] [place] [address] Nov, [facility] [id number] [place] [address] Nov, [facility] [id number] [place] [address] 14 Nov, 2011 [facility] [id number] [place] [address] Nov, [facility] [id number] [place] [address] Nov, [facility] [id number] [place] [address] Oct, [facility] [id number] [place] [address] Oct, [facility] [id number] [place] [address] Oct, [facility] [id number] [place] [address] Oct, [facility] [id number] [place] [address] Oct, [facility] [id number] [place] [address] Sep, [facility] [id number] [place] [address] Sep, [facility] [id number] [place] [address] Sep, [facility] [id number] [place] [address] 14 Sep, 2011 [facility] [id number] [place] [address] 14 Sep, 2011 [facility] [id number] [place] [address] Sep, [facility] [id number] [place] [address] Sep, [facility] [id number] [place] [address] Sep, [facility] [id number] [place] [address] Sep, [facility] [id number] [place] [address] 30 Aug, 2011 [facility] [id number] [place] [address] 30 Aug, 2011 [facility] [id number] [place] [address] Aug, [facility] [id number] [place] [address] Aug, [facility] [id number] [place] [address] Aug, [facility] [id number] [place] [address] Aug, [facility] [id number] [place] [address] 16 Aug, 2011 [facility] [id number] [place] [address] 16 Aug, 2011 [facility] [id number] [place] [address] Aug, [facility] [id number] [place] [address] Aug, [facility] [id number] [place] [address] Aug, [facility] [id number] [place] [address] Aug, [facility] [id number] [place] [address] Jul, [facility] [id number] [place] [address] Jul, [facility] [id number] [place] [address] Jul, [facility] [id number] [place] [address] Jul, [facility] [id number] [place] [address] Jul, [facility] [id number] [place] [address] Jul, [facility] [id number] [place] [address] Jul, [facility] [id number] [place] [address] Jul, [facility] [id number] [place] [address] Jul, [facility] [id number] [place] [address] Jul, [facility] [id number] [place] [address] Nov, [facility] [id number] [place] [address] Aug, [facility] [id number] [place] [address] Aug, [facility] [id number] [place] [address] Aug, [facility] [id number] [place] [address] Aug, [facility] [id number] [place] [address] Jul, IMMUNIZATIONS No Known Immunizations SOCIAL HISTORY Never Assessed REASON FOR VISIT PLAN OF CARE VITAL SIGNS MEDICATIONS Unknown Medications RESULTS No Results PROCEDURES Procedure Date Ordered Result Body Site THER/PROPH/DIAG INJ, SC/IM April 05, 2014 INSTRUCTIONS MEDICATIONS ADMINISTERED No Known Medications [...] by hanging 2015 Hospitalization History [facility] 01/30/2018-02/10/20 08 Hospitalization History [facility] 05/04/18-
--- OUTSIDE RECORDS SUMMARY | 2020-04-04 01:54 | XMS REPORT ---
Author Author Kaila Onofre Doctor Organization [facility] Address Unknown Phone Unavailable Care Team Providers Care Ladies' Locker Room Attendant Name Role Phone Migration, Doctor Unavailable Unavailable PROBLEMS Type Condition ICD9-CM Code SAI11-YZ Code Onset Dates Condition S tatus SNOMED Code Problem Paranoid schizophrenia F20.0 Active 82177787 Problem Borderline personality disorder F60.3 Active 46116855 Problem Schizoaffective disorder, depressive type F25.1 Active 91877811 Problem Schizoaffective disorder, unspecified F25.9 Active 71115823 Problem Attention deficit hyperactivity disorder (ADHD), inattentive type, 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3 [place] [address] [address] Aug, Paranoid schizophrenia F20.0 ; Attention deficit hyperactivity disorder (ADHD), inattentive type, 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 ; Posttraumatic stress disorder F43.10 and Borderline personality disorder F60.3 [place] [address] [address] Aug, [facility] [address] [facility] [id number] [address] [place] [address] Aug, Acute bronchitis, unspecifie d organism J20.9 [facility] [address] [address] Aug, [facility] [address] [address] Aug, [facility] [address] [address] Jul, Paranoid schizophrenia F20.0 ; Attention deficit hyperactivity disorder (ADHD), inattentive type, 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 ; Posttraumatic stress disorder F43.10 and Borderline personality disorder F60.3 [facility] [address] [address] Jul, [facility] [address] [address] Jun, Paranoid schizophrenia F20.0 ; Other katherin g term (current) 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 Z79.899 ; Attention deficit hyperactivity disorder (ADHD), inattentive type, 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 ; Posttraumatic stress disorder F43.10 and Borderline personality disorder F60.3 [facility] [address] [address] Jun, Paranoid schizophrenia F20.0 ; Attention deficit hyperactivity disorder (ADHD), inattentive type, 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 ; Posttraumatic stress disorder F43.10 ; Borderline personality disorder F60.3 and Other group home (current) drug therapy Z79.899 [facility] [address] [address] Apr, Paranoid schizophrenia F20.0 ; Posttraum atic stress disorder F43.10 ; Attention deficit hyperactivity disorder (ADHD), inattentive type, 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 and Borderline personality disorder F60.3 [facility] [address] [address] Apr, Paranoid schizophrenia F20.0 [place] [address] [address] Apr, Paranoid schizophrenia F20.0 ; Posttraum atic stress disorder F43.10 ; Attention deficit hyperactivity disorder (ADHD), inattentive type, 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 and Borderline personality disorder F60.3 [place] [address] [address] Mar, Paranoid schizophrenia F20.0 [place] [address] [address] Mar, Paranoid schizophrenia F20.0 ; Posttraum atic stress disorder F43.10 ; Attention deficit hyperactivity disorder (ADHD), inattentive type, 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 and Borderline personality disorder F60.3 [place] [address] [address] February, Paranoid schizophrenia F20.0 [place] [address] [address] Jan, Paranoid schizophrenia F20.0 ; Posttraum atic stress disorder F43.10 ; Attention deficit hyperactivity disorder (ADHD), inattentive type, 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 and Borderline personality disorder F60.3 [place] [address] [address] Dec, Paranoid schizophrenia F20.0 ; Posttraum atic stress disorder F43.10 ; Attention deficit hyperactivity disorder (ADHD), inattentive type, 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 and Borderline personality disorder F60.3 [place] [address] [address] Dec, Paranoid schizophrenia F20.0 ; Posttraum atic stress disorder F43.10 ; Attention deficit hyperactivity disorder (ADHD), inattentive type, 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 and Borderline personality disorder F60.3 [place] [address] [address] Oct, Paranoid schizophrenia F20.0 ; Posttraum atic stress disorder F43.10 ; Attention deficit hyperactivity disorder (ADHD), inattentive type, 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 and Borderline personality disorder F60.3 [facility] [address] [place] [id number] [place] [address] Oct, Paranoid schizophrenia F20.0 ; Posttraum atic stress disorder F43.10 ; Attention deficit hyperactivity disorder (ADHD), inattentive type, 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 and Borderline personality disorder F60.3 [facility] [address] [address] Aug, [facility] [address] [address] Aug, Paranoid schizophrenia F20.0 ; Posttraum atic stress disorder F43.10 ; Attention deficit hyperactivity disorder (ADHD), inattentive type, 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 and Borderline personality disorder F60.3 [facility] [address] [facility] [id number] [address] [place] [address] Jul, Dry skin dermatitis L85.3 [facility] [address] [place] [id number] [place] [address] Jul, [facility] [address] [address] Jul, Paranoid schizophrenia F20.0 [facility] [address] [place] [id number] [place] [address] May, Paranoid schizophrenia F20.0 ; Posttraum atic stress disorder F43.10 ; Attention deficit hyperactivity disorder (ADHD), inattentive type, 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 and Borderline personality disorder F60.3 [facility] [address] [place] [id number] [place] [address] May, [facility] [address] [address] May, Paranoid schizophrenia F20.0 [facility] [address] [address] May, Paranoid schizophrenia F20.0 ; Posttraum atic stress disorder F43.10 ; Attention deficit hyperactivity disorder (ADHD), inattentive type, 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 and Borderline personality disorder F60.3 [facility] [address] [address] Apr, [facility] [address] [address] Apr, Paranoid schizophrenia F20.0 ; Posttraum atic stress disorder F43.10 ; Attention deficit hyperactivity disorder (ADHD), inattentive type, 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 and Borderline personality disorder F60.3 [facility] [address] [address] Apr, [facility] [address] [address] Apr, Schizoaffective disorder, depressive typ e F25.1 and Borderline personality disorder F60.3 [facility] [address] [address] Apr, Paranoid schizophrenia F20.0 ; Posttraum atic stress disorder F43.10 ; Attention deficit hyperactivity disorder (ADHD), inattentive type, 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 and Borderline personality disorder F60.3 [facility] [address] [address] Apr, [facility] [address] [address] Apr, Paranoid schizophrenia F20.0 ; Posttraum atic stress disorder F43.10 ; Attention deficit hyperactivity disorder (ADHD), inattentive type, 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 and Borderline personality disorder F60.3 [facility] [address] [place] [id number] [place] [address] Apr, [facility] [address] [address] Mar, Paranoid schizophrenia F20.0 [facility] [address] [address] Mar, [facility] [address] [address] Mar, Paranoid schizophrenia F20.0 ; Posttraum atic stress disorder F43.10 ; Attention deficit hyperactivity disorder (ADHD), inattentive type, 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 and Borderline personality disorder F60.3 [facility] [address] [address] February, Paranoid schizophrenia F20.0 [facility] [address] [address] February, Paranoid schizophrenia F20.0 ; Posttraum atic stress disorder F43.10 ; Attention deficit hyperactivity disorder (ADHD), inattentive type, 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 and Borderline personality disorder F60.3 [facility] [address] [address] February, Paranoid schizophrenia F20.0 ; Posttraum atic stress disorder F43.10 ; Attention deficit hyperactivity disorder (ADHD), inattentive type, 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 and Borderline personality disorder F60.3 [facility] [address] [address] February, [facility] [address] [address] February, Paranoid schizophrenia F20.0 [facility] [address] [address] February, Paranoid schizophrenia F20.0 [facility] [address] [address] February, Paranoid schizophrenia F20.0 ; Posttraum atic stress disorder F43.10 ; Attention deficit hyperactivity disorder (ADHD), inattentive type, 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 and Borderline personality disorder F60.3 [facility] [address] [address] Jan, Paranoid schizophrenia F20.0 ; Posttraum atic stress disorder F43.10 ; Attention deficit hyperactivity disorder (ADHD), inattentive type, 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 and Borderline personality disorder F60.3 [facility] [address] [place] [id number] Jan, Paranoid schizophrenia F20.0 [facility] [address] [place] [id number] [place] [address] Jan, Paranoid schizophrenia F20.0 [facility] [address] [place] [id number] [place] [address] Jan, Paranoid schizophrenia F20.0 ; Posttraum atic stress disorder F43.10 ; Attention deficit hyperactivity disorder (ADHD), inattentive type, 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 and Borderline personality disorder F60.3 [facility] [address] [place] [id number] [place] [address] Dec, [facility] [address] [address] Nov, Paranoid schizophrenia F20.0 ; Posttraum atic stress disorder F43.10 ; Attention deficit hyperactivity disorder (ADHD), inattentive type, 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 and Borderline personality disorder F60.3 [facility] [address] [address] Nov, [facility] [address] [address] Oct, Paranoid schizophrenia F20.0 [facility] [address] [address] Oct, Paranoid schizophrenia F20.0 ; Posttraum atic stress disorder F43.10 ; Attention deficit hyperactivity disorder (ADHD), inattentive type, 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 ; Borderline personality disorder F60.3 and 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 Z79.899 [facility] [address] [place] [id number] [place] [address] Oct, [facility] [address] [place] [id number] [place] [address] Oct, [facility] [address] [address] Sep, [facility] [address] [address] Sep, Paranoid schizophrenia F20.0 ; Posttraum atic stress disorder F43.10 ; Attention deficit hyperactivity disorder (ADHD), inattentive type, 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 and Borderline personality disorder F60.3 [facility] [address] [address] Sep, Paranoid schizophrenia F20.0 [facility] [address] [place] [address] Aug, Paranoid schizophrenia F20.0 ; Posttraum atic stress disorder F43.10 ; Attention deficit hyperactivity disorder (ADHD), inattentive type, 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 and Borderline personality disorder F60.3 [facility] [address] [address] Aug, Paranoid schizophrenia F20.0 ; Posttraum atic stress disorder F43.10 ; Attention deficit hyperactivity disorder (ADHD), inattentive type, 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 and Borderline personality disorder F60.3 [facility] [address] [address] Aug, [facility] [address] [address] Jul, Paranoid schizophrenia F20.0 ; Posttraum atic stress disorder F43.10 ; Attention deficit hyperactivity disorder (ADHD), inattentive type, 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 and Borderline personality disorder F60.3 [facility] [address] [address] Jul, Paranoid schizophrenia F20.0 [facility] [address] [address] Jul, Paranoid schizophrenia F20.0 ; Posttraum atic stress disorder F43.10 ; Attention deficit hyperactivity disorder (ADHD), inattentive type, 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 and Borderline personality disorder F60.3 [facility] [address] [address] Jun, Paranoid schizophrenia F20.0 ; Posttraum atic stress disorder F43.10 ; Attention deficit hyperactivity disorder (ADHD), inattentive type, 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 and Borderline personality disorder F60.3 [facility] [address] [address] May, 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 Z 79.899 [facility] [address] [address] May, [facility] [address] [address] May, [facility] [address] [address] May, Attention deficit hyperactivity disorder (ADHD), inattentive type, 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 [facility] [address] [address] May, [facility] [address] [address] May, Attention deficit hyperactivity disorder (ADHD), inattentive type, 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 [facility] [address] [address] May, Paranoid schizophrenia F20.0 ; Posttraum atic stress disorder F43.10 ; Attention deficit hyperactivity disorder (ADHD), inattentive type, 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 and 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 Z79.899 [facility] [address] [address] Apr, Paranoid schizophrenia F20.0 [facility] [address] [address] Apr, Paranoid schizophrenia F20.0 ; Posttraum atic stress disorder F43.10 and Attention deficit hyperactivity disorder (ADHD), inattentive type, 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 [facility] [address] [place] [id number] [place] [address] February, [facility] [address] [address] February, Paranoid schizophrenia F20.0 ; Posttraum atic stress disorder F43.10 and Attention deficit hyperactivity disorder (ADHD), inattentive type, 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 [facility] [address] [place] [id number] February, Paranoid schizophrenia F20.0 ; Posttraum atic stress disorder F43.10 and Attention deficit hyperactivity disorder (ADHD), inattentive type, 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 [facility] [address] [place] [id number] Jan, Paranoid schizophrenia F20.0 ; Posttraum atic stress disorder F43.10 and Attention deficit hyperactivity disorder (ADHD), inattentive type, 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 [facility] [address] [id number] Dec, Dental examination Z01.20 [facility] [address] [id number] Nov, Dental examination Z01.20 [facility] [address] [id number] Nov, Dental examination Z01.20 [facility] [address] [place] [id number] Nov, Dental caries K02.9 [facility] [address] [address] Nov, High risk medication use Z79.899 [facility] [address] [place] [id number] Nov, Paranoid schizophrenia F20.0 ; Posttraum atic stress disorder F43.10 ; Attention deficit hyperactivity disorder (ADHD), inattentive type, 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 and Borderline personality disorder in adult F60.3 [facility] [address] [id number] Oct, Dental caries K02.9 [facility] [address] [address] Sep, Paranoid schizophrenia F20.0 ; Posttraum atic stress disorder F43.10 and Attention deficit hyperactivity disorder (ADHD), inattentive type, 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 [facility] [address] [address] 16 Aug, 2016 Paranoid schizophrenia F20.0 ; Posttraum atic stress disorder F43.10 and Attention deficit hyperactivity disorder (ADHD), inattentive type, 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 [facility] [address] [facility] [id number] [address] [place] [address] Aug, Strep throat J02.0 and Cough R05 [facility] [address] [address] Aug, [facility] [address] [address] 24 Jul, 2016 Paranoid schizophrenia F20.0 ; Posttraum atic stress disorder F43.10 and Attention deficit hyperactivity disorder (ADHD), inattentive type, 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 [facility] [address] [address] Jul, [facility] [address] [address] Jun, Paranoid schizophrenia F20.0 ; Posttraum atic stress disorder F43.10 and Attention deficit hyperactivity disorder (ADHD), inattentive type, 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 [facility] [address] [id number] [place] [id number] Jun, Dental examination Z01.20 [facility] [address] [place] [id number] [place] [address] Jun, [facility] [address] [address] May, Paranoid schizophrenia F20.0 [facility] [address] [address] May, Paranoid schizophrenia F20.0 ; Posttraum atic stress disorder F43.10 and Attention deficit hyperactivity disorder (ADHD), inattentive type, 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 [facility] [address] [facility] [place] [address] May, [facility] [address] [id number] [place] [address] May, Paranoid schizophrenia F20.0 [facility] [address] [facility] [place] [address] May, [facility] [address] [id number] [place] [address] May, Paranoid schizophrenia F20.0 [facility] [address] [id number] [place] [address] May, Schizoaffective disorder, unspecified F2 5.9 [facility] [address] [id number] [place] [address] May, Schizoaffective disorder, unspecified F2 5.9 [facility] [address] [id number] [place] [address] May, [facility] [address] [facility] [place] [address] May, Paranoid schizophrenia F20.0 [facility] [address] [facility] [place] [address] May, Paranoid schizophrenia F20.0 ; Posttraum atic stress disorder F43.10 and Attention deficit hyperactivity disorder (ADHD), inattentive type, 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 [facility] [address] [facility] [place] [address] Mar, [facility] [address] [facility] [place] [address] Mar, Paranoid schizophrenia F20.0 ; Posttraum atic stress disorder F43.10 and Attention deficit hyperactivity disorder (ADHD), inattentive type, 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 [facility] [address] [facility] [place] [address] 16 Mar, 2016 Paranoid schizophrenia F20.0 [facility] [address] [facility] [place] [address] Mar, Paranoid schizophrenia F20.0 ; Attention deficit hyperactivity disorder (ADHD), inattentive type, 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 and Posttraumatic stress disorder F43.10 [facility] [address] [address] Mar, [facility] [address] [address] Mar, Paranoid schizophrenia F20.0 ; Posttraum atic stress disorder F43.10 and Attention deficit hyperactivity disorder (ADHD), inattentive type, 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 [facility] [address] [address] February, [facility] [address] [address] February, [facility] [address] [address] February, [facility] [address] [address] February, [facility] [address] [address] Jan, Paranoid schizophrenia F20.0 [facility] [address] [id number] Jan, Dental examination Z01.20 [facility] [address] [id number] Jan, Dental caries K02.9 [facility] [address] [id number] Jan, Dental examination Z01.20 [facility] [address] [id number] Dec, Encounter for dental examination Z01.20 [facility] [address] [address] Dec, Paranoid schizophrenia F20.0 [facility] [address] [id number] Dec, Dental examination Z01.20 [facility] [address] [address] Dec, [facility] [address] [address] Dec, Paranoid schizophrenia F20.0 ; Posttraum atic stress disorder F43.10 and Attention deficit hyperactivity disorder (ADHD), inattentive type, 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 [facility] [address] [address] Nov, Schizoaffective disorder, unspecified F2 5.9 [facility] [address] [address] Oct, Paranoid schizophrenia F20.0 [facility] [address] [address] Oct, [facility] [address] [address] Sep, Paranoid schizophrenia F20.0 ; Posttraum atic stress disorder F43.10 and Attention deficit hyperactivity disorder (ADHD), inattentive type, 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 [facility] [address] [address] Sep, [facility] [address] [address] Sep, Paranoid schizophrenia F20.0 ; Posttraum atic stress disorder F43.10 and Attention deficit hyperactivity disorder (ADHD), inattentive type, 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 [facility] [address] [address] Aug, Paranoid schizophrenia F20.0 [facility] [address] [address] Aug, [facility] [address] [address] Aug, Posttraumatic stress disorder F43.10 ; P aranoid schizophrenia F20.0 and Attention deficit hyperactivity disorder (ADHD), inattentive type, 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 [facility] [address] [address] Jul, Bipolar disorder, unspecified F31.9 [facility] [address] [address] Jul, [facility] [address] [address] Jun, [facility] [address] [address] Jun, Schizoaffective disorder, chronic 295.72 ; Posttraumatic stress disorder 309.81 and Attention deficit disorder of childhood without mention of hyperactivity 314.00 [place] [address] [address] May, [facility] [address] [address] May, [facility] [address] [address] May, Schizoaffective disorder, chronic 295.72 ; Posttraumatic stress disorder 309.81 ; Attention deficit disorder of childhood without mention of hyperactivity 314.00 and Bipolar disorder, unspecified 296.80 [facility] [address] [address] Apr, Schizoaffective disorder, chronic 295.72 [facility] [address] [address] Apr, [facility] [address] [address] Apr, Schizoaffective disorder, chronic 295.72 ; Posttraumatic stress disorder 309.81 and Attention deficit disorder of childhood without mention of hyperactivity 314.00 [facility] [address] [address] Mar, Disorganized schizophrenia, 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 [facility] [address] [address] Mar, [facility] [address] [place] [address] [place] [address] Mar, [facility] [address] [place] [id number] [place] [address] Mar, [facility] [address] [place] [id number] [place] [address] Mar, [facility] [address] [place] [id number] [place] [address] February, Schizoaffective disorder, chronic 295.72 [facility] [address] [place] [id number] [place] [address] February, [facility] [address] [place] [id number] [place] [address] February, Attention deficit disorder of childhood without mention of hyperactivity 314.00 ; Posttraumatic stress disorder 309.81 and Schizoaffective disorder, chronic 295.72 [facility] [address] [place] [id number] [place] [address] Jan, [facility] [address] [place] [address] [id number] [place] [address] Jan, [facility] [address] [place] [id number] [place] [address] Jan, [facility] [address] [place] [id number] [place] [address] Dec, [facility] [address] [place] [id number] [place] [address] Dec, [facility] [address] [place] [address] [id number] [place] [address] Dec, [facility] [address] [address] [id number] [place] [address] Dec, [facility] [address] [place] [address] [id number] [place] [address] Dec, [facility] [address] [id number] [place] [address] Dec, [facility] [id number] [place] [address] Dec, [facility] [place] [facility] [address] [id number] [place] [address] Dec, [facility] [place] [address] [id number] [place] [address] Nov, [facility] [address] [id number] [place] [address] Nov, [facility] [address] [id number] [place] [address] Nov, 2014 [facility] [address] [id number] [place] [address] Nov, [facility] [address] [id number] [place] [address] Nov, 2014 [facility] [address] [id number] [place] [address] Nov, 2014 [facility] [address] [id number] [place] [address] Nov, 2014 [facility] [address] [id number] [place] [address] Nov, [facility] [address] [id number] [place] [address] Nov, [facility] [place] [address] [id number] [place] [address] Nov, [facility] [address] [id number] [place] [address] Oct, [facility] [address] [id number] [place] [address] Oct, [facility] [address] [id number] [place] [address] Oct, [facility] [address] [id number] [place] [address] Oct, [facility] [address] [id number] [place] [address] Oct, [facility] [address] [id number] [place] [address] Oct, [facility] [address] [id number] [place] [address] Oct, [facility] [address] [id number] [place] [address] 17 Sep, 2014 [facility] [address] [id number] [place] [address] Sep, [facility] [place] [address] [id number] [place] [address] Sep, [facility] [address] [id number] [place] [address] Sep, [facility] [address] [id number] [place] [address] Aug, [facility] [place] [address] [id number] [place] [address] Aug, [facility] [place] [address] [id number] [place] [address] Aug, [facility] [address] [id number] [place] [address] Aug, [facility] [place] [address] [id number] [place] [address] Aug, [facility] [address] [id number] [place] [address] Aug, [facility] [address] [id number] [place] [address] Jul, [facility] [place] [address] [id number] [place] [address] Jul, [facility] [address] [id number] [place] [address] Jul, [facility] [address] [id number] [place] [address] Jul, [facility] [address] [id number] [place] [address] 15 Jul, 2014 [facility] [place] [address] [id number] [place] [address] 15 Jul, 2014 [facility] [address] [facility] [id number] [place] [address] 27 Jun, 2013 [facility] [place] [address] [facility] [id number] [place] [address] 27 Jun, 2013 [facility] [address] [id number] [place] [address] 26 Jun, 2013 [facility] [address] [facility] [id number] [place] [address] 26 Jun, 2013 [facility] [place] [address] [id number] [place] [address] Jun, 2013 [facility] [place] [address] [id number] [place] [address] Jun, 2013 [facility] [address] [id number] [place] [address] 16 Jun, 2013 [facility] [address] [facility] [id number] [place] [address] 16 Jun, 2013 [facility] [address] [id number] [place] [address] 16 Jun, 2013 [facility] [address] [facility] [id number] [place] [address] 16 Jun, 2013 [facility] [address] [id number] [place] [address] Jun, 2013 [facility] [address] [facility] [id number] [place] [address] May, [facility] [address] [id number] [place] [address] May, [facility] [address] [facility] [id number] [place] [address] May, [facility] [address] [id number] [place] [address] May, [facility] [address] [id number] [place] [address] May, [facility] [place] [address] [id number] [place] [address] May, [facility] [address] [facility] [id number] [place] [address] May, [facility] [address] [id number] [place] [address] May, [facility] [address] [facility] [id number] [place] [address] May, [facility] [address] [id number] [place] [address] May, [facility] [address] [id number] [place] [address] Apr, [facility] [address] [id number] [place] [address] Apr, [facility] [address] [id number] [place] [address] Apr, [facility] [address] [facility] [id number] [place] [address] Apr, [facility] [address] [id number] [place] [address] Apr, [facility] [address] [id number] [place] [address] Apr, [facility] [address] [id number] [place] [address] Apr, [facility] [address] [facility] [id number] [place] [address] Apr, [facility] [address] [id number] [place] [address] Apr, [facility] [address] [id number] [place] [address] Apr, [facility] [address] [id number] [place] [address] Mar, [facility] [address] [facility] [id number] [place] [address] Mar, [facility] [address] [id number] [place] [address] Mar, [facility] [address] [id number] [place] [address] 24 Mar, 2014 [facility] [address] [id number] [place] [address] Mar, [facility] [address] [facility] [id number] [place] [address] 18 Mar, 2014 [facility] [address] [id number] [place] [address] 18 Mar, 2014 [facility] [place] [address] [id number] [place] [address] 16 Mar, 2014 [facility] [place] [address] [id number] [place] [address] 16 Mar, 2014 [facility] [address] [id number] [place] [address] Mar, [facility] [place] [address] [id number] [place] [address] Mar, [facility] [place] [address] [id number] [place] [address] Mar, [facility] [place] [address] [id number] [place] [address] Mar, [facility] [place] [facility] [address] [id number] [place] [address] Mar, [facility] [place] [address] [id number] [place] [address] 09 Mar, 2014 [facility] [place] [address] [id number] [place] [address] Mar, [facility] [place] [facility] [address] [id number] [place] [address] 09 Mar, 2014 [facility] [place] [address] [id number] [place] [address] Mar, [facility] [place] [address] [id number] [place] [address] Mar, [facility] [place] [address] [facility] [id number] [place] [address] Mar, [facility] [place] [address] [facility] [id number] [place] [address] February, [facility] [place] [address] [id number] [place] [address] February, [facility] [place] [address] [id number] [place] [address] February, [facility] [place] [address] [id number] [place] [address] February, [facility] [address] [id number] [place] [address] February, [facility] [place] [address] [id number] [place] [address] February, [facility] [place] [address] [facility] [id number] [place] [address] February, [facility] [address] [id number] [place] [address] February, [facility] [address] [id number] [place] [address] February, [facility] [place] [address] [id number] [place] [address] February, [facility] [place] [address] [facility] [id number] [place] [address] February, [facility] [place] [address] [id number] [place] [address] February, [facility] [place] [address] [facility] [id number] [place] [address] February, [facility] [place] [address] [id number] [place] [address] February, [facility] [address] [id number] [place] [address] February, [facility] [place] [address] [id number] [place] [address] February, [facility] [address] [id number] [place] [address] February, [facility] [address] [id number] [place] [address] February, [facility] [place] [address] [id number] [place] [address] February, [facility] [place] [address] [id number] [place] [address] February, [facility] [place] [address] [id number] [place] [address] February, [facility] [place] [address] [id number] [place] [address] Jan, [facility] [place] [address] [id number] [place] [address] Jan, [facility] [address] [id number] [place] [address] Jan, [facility] [place] [facility] [address] [id number] [place] [address] Jan, [facility] [place] [address] [id number] [place] [address] Jan, [facility] [place] [address] [id number] [place] [address] Jan, [facility] [place] [address] [id number] [place] [address] Jan, [facility] [place] [address] [id number] [place] [address] Jan, [facility] [address] [id number] [place] [address] Dec, [facility] [address] [id number] [place] [address] Dec, [facility] [place] [address] [id number] [place] [address] 20 Dec, 2013 [facility] [place] [facility] [address] [id number] [place] [address] 19 Dec, 2013 [facility] [place] [address] [id number] [place] [address] 19 Dec, 2013 [facility] [place] [address] [id number] [place] [address] 15 Dec, 2013 [facility] [address] [id number] [place] [address] 15 Dec, 2013 [facility] [address] [id number] [place] [address] 11 Dec, 2013 [facility] [place] [address] [id number] [place] [address] 10 Dec, 2013 [facility] [place] [address] [id number] [place] [address] 10 Dec, 2013 [facility] [place] [address] [id number] [place] [address] 18 Nov, 2013 [facility] [address] [id number] [place] [address] Nov, [facility] [address] [id number] [place] [address] Nov, [facility] [address] [id number] [place] [address] Nov, [facility] [address] [id number] [place] [address] 05 Nov, 2013 [facility] [address] [id number] [place] [address] Oct, [facility] [place] [facility] [address] [id number] [place] [address] Oct, [facility] [address] [id number] [place] [address] 16 Oct, 2013 [facility] [address] [id number] [place] [address] Sep, [facility] [place] [address] [id number] [place] [address] Sep, [facility] [address] [id number] [place] [address] Sep, [facility] [place] [address] [id number] [place] [address] Sep, [facility] [place] [address] [id number] [place] [address] Aug, [facility] [address] [id number] [place] [address] Aug, [facility] [address] [id number] [place] [address] Jul, [facility] [address] [id number] [place] [address] Jul, [facility] [address] [id number] [place] [address] Jul, [facility] [address] [id number] [place] [address] Jul, [facility] [place] [address] [id number] [place] [address] Jul, [facility] [place] [address] [id number] [place] [address] Jun, [facility] [place] [address] [id number] [place] [address] 25 Jun, 2012 [facility] [address] [id number] [place] [address] 19 Sep, 2012 [facility] [address] [id number] [place] [address] 18 Sep, 2012 [facility] [address] [id number] [place] [address] 16 Sep, 2012 [facility] [place] [facility] [address] [id number] [place] [address] 12 Sep, 2012 [facility] [place] [address] [id number] [place] [address] Jun, [facility] [place] [facility] [address] [id number] [place] [address] May, [facility] [place] [facility] [address] [id number] [place] [address] May, [facility] [place] [facility] [address] [id number] [place] [address] Apr, [facility] [place] [facility] [address] [id number] [place] [address] Apr, [facility] [place] [facility] [address] [id number] [place] [address] Apr, [facility] [place] [facility] [address] [id number] [place] [address] Mar, [facility] [place] [facility] [address] [id number] [place] [address] Mar, [facility] [place] [facility] [address] [id number] [place] [address] February, [facility] [place] [facility] [address] [id number] [place] [address] February, [facility] [place] [facility] [address] [id number] [place] [address] February, [facility] [place] [facility] [address] [id number] [place] [address] February, [facility] [place] [facility] [address] [id number] [place] [address] Jan, [facility] [place] [facility] [address] [id number] [place] [address] Jan, [facility] [place] [facility] [address] [id number] [place] [address] Jan, [facility] [place] [facility] [address] [id number] [place] [address] Dec, [facility] [place] [facility] [address] [id number] [place] [address] Dec, [facility] [place] [facility] [address] [id number] [place] [address] Dec, [facility] [place] [facility] [address] [id number] [place] [address] Dec, [facility] [place] [facility] [address] [id number] [place] [address] Nov, [facility] [place] [facility] [address] [id number] [place] [address] Nov, [facility] [place] [facility] [address] [id number] [place] [address] Oct, [facility] [place] [facility] [address] [id number] [place] [address] Oct, [facility] [place] [facility] [address] [id number] [place] [address] Oct, [facility] [place] [facility] [id number] [place] [address] Oct, [facility] [place] [facility] [address] [id number] [place] [address] Aug, [facility] [place] [facility] [address] [id number] [place] [address] Aug, [facility] [place] [facility] [address] [id number] [place] [address] Jun, [facility] [place] [facility] [address] [id number] [place] [address] May, [facility] [place] [facility] [address] [id number] [place] [address] May, [facility] [place] [facility] [address] [id number] [place] [address] Apr, [facility] [place] [facility] [address] [id number] [place] [address] Apr, [facility] [place] [facility] [address] [id number] [place] [address] Apr, [facility] [place] [facility] [address] [id number] [place] [address] 20 Mar, 2012 [facility] [place] [facility] [address] [id number] [place] [address] Mar, [facility] [place] [facility] [address] [id number] [place] [address] 13 Mar, 2012 [facility] [place] [facility] [address] [id number] [place] [address] Mar, [facility] [place] [facility] [address] [id number] [place] [address] Mar, [facility] [place] [facility] [address] [id number] [place] [address] February, [facility] [place] [facility] [address] [id number] [place] [address] February, [facility] [place] [facility] [address] [id number] [place] [address] February, [facility] [place] [facility] [address] [id number] [place] [address] February, [facility] [place] [facility] [address] [id number] [place] [address] February, [facility] [place] [facility] [address] [id number] [place] [address] February, [facility] [place] [facility] [address] [id number] [place] [address] February, [facility] [place] [facility] [address] [id number] [place] [address] Jan, [facility] [place] [facility] [address] [id number] [place] [address] 18 Jan, 2012 [facility] [address] [id number] [place] [address] 17 Jan, 2012 [facility] [address] [id number] [place] [address] 13 Jan, 2012 [facility] [address] [id number] [place] [address] 10 Jan, 2012 [facility] [address] [id number] [place] [address] Jan, [facility] [address] [id number] [place] [address] 30 Dec, 2011 [facility] [address] [id number] [place] [address] 24 Dec, 2011 [facility] [address] [id number] [place] [address] Dec, [facility] [address] [id number] [place] [address] Dec, [facility] [address] [id number] [place] [address] 06 Dec, 2011 [facility] [address] [id number] [place] [address] Nov, [facility] [address] [id number] [place] [address] Nov, [facility] [address] [id number] [place] [address] Nov, [facility] [address] [id number] [place] [address] 14 Nov, 2011 [facility] [address] [id number] [place] [address] Nov, [facility] [address] [id number] [place] [address] Nov, [facility] [address] [id number] [place] [address] Oct, [facility] [address] [id number] [place] [address] Oct, [facility] [address] [id number] [place] [address] Oct, [facility] [address] [id number] [place] [address] Oct, [facility] [address] [id number] [place] [address] Oct, [facility] [address] [id number] [place] [address] Sep, [facility] [address] [id number] [place] [address] Sep, [facility] [address] [id number] [place] [address] Sep, [facility] [address] [id number] [place] [address] 14 Sep, 2011 [facility] [address] [id number] [place] [address] 14 Sep, 2011 [facility] [address] [id number] [place] [address] Sep, [facility] [address] [id number] [place] [address] Sep, [facility] [address] [id number] [place] [address] Sep, [facility] [address] [id number] [place] [address] Sep, [facility] [address] [id number] [place] [address] 30 Aug, 2011 [facility] [address] [id number] [place] [address] 30 Aug, 2011 [facility] [address] [id number] [place] [address] Aug, [facility] [address] [id number] [place] [address] Aug, [facility] [address] [id number] [place] [address] Aug, [facility] [address] [id number] [place] [address] Aug, [facility] [address] [id number] [place] [address] 16 Aug, 2011 [facility] [address] [id number] [place] [address] 16 Aug, 2011 [facility] [address] [id number] [place] [address] Aug, [facility] [address] [id number] [place] [address] Aug, [facility] [address] [id number] [place] [address] Aug, [facility] [address] [id number] [place] [address] Aug, [facility] [address] [id number] [place] [address] Jul, [facility] [address] [id number] [place] [address] Jul, [facility] [address] [id number] [place] [address] Jul, [facility] [address] [id number] [place] [address] Jul, [facility] [address] [id number] [place] [address] Jul, [facility] [address] [id number] [place] [address] Jul, [facility] [address] [id number] [place] [address] Jul, [facility] [address] [id number] [place] [address] Jul, [facility] [address] [id number] [place] [address] Jul, [facility] [address] [id number] [place] [address] Jul, [facility] [address] [id number] [place] [address] Nov, [facility] [address] [id number] [place] [address] Aug, [facility] [address] [id number] [place] [address] Aug, [facility] [address] [id number] [place] [address] Aug, [facility] [address] [id number] [place] [address] Aug, [facility] [address] [id number] [place] [address] Jul, IMMUNIZATIONS No Known Immunizations SOCIAL HISTORY [...] Suicide attempt by hanging 2015 Hospitalization History [facility] 01/30/2018-02/10/20 08 Hospitalization History [facility] 05/04/18-
--- OUTSIDE RECORDS SUMMARY | 2020-04-04 01:54 | XMS REPORT ---
Author Author Kaila Onofre Doctor Organization [facility] Address Unknown Phone Unavailable Care Team Providers Care Awning Craftsman Name Role Phone Migration, Doctor Unavailable Unavailable PROBLEMS Type Condition ICD9-CM Code DOZ20-QB Code Onset Dates Condition S tatus SNOMED Code Problem Paranoid schizophrenia F20.0 Active 18666792 Problem Borderline personality disorder F60.3 Active 51952576 Problem Schizoaffective disorder, depressive type F25.1 Active 95462438 Problem Schizoaffective disorder, unspecified F25.9 Active 65588307 Problem Attention deficit hyperactivity disorder (ADHD), inattentive type, 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 04823538 Problem Posttraumatic stress disorder F43.10 Active 57938699 Problem High risk medication use Z79.899 Activ e [id number] ALLERGIES No Information ENCOUNTERS Encounter Location Date Diagnosis [place] [address] [address] Oct, [place] [address] [address] Oct, [place] [address] [address] Oct, [place] [address] [address] Sep, Paranoid schizophrenia F20.0 ; Attention deficit hyperactivity disorder (ADHD), inattentive type, 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 ; Posttraumatic stress disorder F43.10 and Borderline personality disorder F60.3 [place] [address] [address] Aug, Paranoid schizophrenia F20.0 ; Attention deficit hyperactivity disorder (ADHD), inattentive type, 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 ; Posttraumatic stress disorder F43.10 and Borderline personality disorder F60.3 [place] [address] [address] Aug, [facility] [address] [facility] [id number] [address] [place] [address] Aug, Acute bronchitis, unspecifie d organism J20.9 [facility] [address] [address] Aug, [facility] [address] [address] Aug, [facility] [address] [address] Jul, Paranoid schizophrenia F20.0 ; Attention deficit hyperactivity disorder (ADHD), inattentive type, 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 ; Posttraumatic stress disorder F43.10 and Borderline personality disorder F60.3 [facility] [address] [address] Jul, [facility] [address] [address] Jun, Paranoid schizophrenia F20.0 ; Other katherin g term (current) 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 Z79.899 ; Attention deficit hyperactivity disorder (ADHD), inattentive type, 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 ; Posttraumatic stress disorder F43.10 and Borderline personality disorder F60.3 [facility] [address] [address] Jun, Paranoid schizophrenia F20.0 ; Attention deficit hyperactivity disorder (ADHD), inattentive type, 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 ; Posttraumatic stress disorder F43.10 ; Borderline personality disorder F60.3 and Other senior care (current) drug therapy Z79.899 [facility] [address] [address] Apr, Paranoid schizophrenia F20.0 ; Posttraum atic stress disorder F43.10 ; Attention deficit hyperactivity disorder (ADHD), inattentive type, 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 and Borderline personality disorder F60.3 [facility] [address] [address] Apr, Paranoid schizophrenia F20.0 [place] [address] [address] Apr, Paranoid schizophrenia F20.0 ; Posttraum atic stress disorder F43.10 ; Attention deficit hyperactivity disorder (ADHD), inattentive type, 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 and Borderline personality disorder F60.3 [place] [address] [address] Mar, Paranoid schizophrenia F20.0 [place] [address] [address] Mar, Paranoid schizophrenia F20.0 ; Posttraum atic stress disorder F43.10 ; Attention deficit hyperactivity disorder (ADHD), inattentive type, 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 and Borderline personality disorder F60.3 [place] [address] [address] February, Paranoid schizophrenia F20.0 [place] [address] [address] Jan, Paranoid schizophrenia F20.0 ; Posttraum atic stress disorder F43.10 ; Attention deficit hyperactivity disorder (ADHD), inattentive type, 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 and Borderline personality disorder F60.3 [place] [address] [address] Dec, Paranoid schizophrenia F20.0 ; Posttraum atic stress disorder F43.10 ; Attention deficit hyperactivity disorder (ADHD), inattentive type, 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 and Borderline personality disorder F60.3 [place] [address] [address] Dec, Paranoid schizophrenia F20.0 ; Posttraum atic stress disorder F43.10 ; Attention deficit hyperactivity disorder (ADHD), inattentive type, 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 and Borderline personality disorder F60.3 [place] [address] [address] Oct, Paranoid schizophrenia F20.0 ; Posttraum atic stress disorder F43.10 ; Attention deficit hyperactivity disorder (ADHD), inattentive type, 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 and Borderline personality disorder F60.3 [facility] [address] [place] [id number] [place] [address] Oct, Paranoid schizophrenia F20.0 ; Posttraum atic stress disorder F43.10 ; Attention deficit hyperactivity disorder (ADHD), inattentive type, 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 and Borderline personality disorder F60.3 [facility] [address] [place] [id number] [place] [address] May, [facility] [address] [address] May, Paranoid schizophrenia F20.0 [facility] [address] [address] May, Paranoid schizophrenia F20.0 ; Posttraum atic stress disorder F43.10 ; Attention deficit hyperactivity disorder (ADHD), inattentive type, 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 and Borderline personality disorder F60.3 [facility] [address] [address] Apr, [facility] [address] [address] Apr, Paranoid schizophrenia F20.0 ; Posttraum atic stress disorder F43.10 ; Attention deficit hyperactivity disorder (ADHD), inattentive type, 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 and Borderline personality disorder F60.3 [facility] [address] [address] Apr, [facility] [address] [address] Apr, Schizoaffective disorder, depressive typ e F25.1 and Borderline personality disorder F60.3 [facility] [address] [address] Apr, Paranoid schizophrenia F20.0 ; Posttraum atic stress disorder F43.10 ; Attention deficit hyperactivity disorder (ADHD), inattentive type, 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 and Borderline personality disorder F60.3 [facility] [address] [address] Apr, [facility] [address] [address] Apr, Paranoid schizophrenia F20.0 ; Posttraum atic stress disorder F43.10 ; Attention deficit hyperactivity disorder (ADHD), inattentive type, 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 and Borderline personality disorder F60.3 [facility] [address] [place] [id number] [place] [address] Apr, [facility] [address] [address] Mar, Paranoid schizophrenia F20.0 [facility] [address] [address] Mar, [facility] [address] [address] Mar, Paranoid schizophrenia F20.0 ; Posttraum atic stress disorder F43.10 ; Attention deficit hyperactivity disorder (ADHD), inattentive type, 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 and Borderline personality disorder F60.3 [facility] [address] [address] February, Paranoid schizophrenia F20.0 [facility] [address] [address] February, Paranoid schizophrenia F20.0 ; Posttraum atic stress disorder F43.10 ; Attention deficit hyperactivity disorder (ADHD), inattentive type, 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 and Borderline personality disorder F60.3 [facility] [address] [address] February, Paranoid schizophrenia F20.0 ; Posttraum atic stress disorder F43.10 ; Attention deficit hyperactivity disorder (ADHD), inattentive type, 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 and Borderline personality disorder F60.3 [facility] [address] [address] February, [facility] [address] [address] February, Paranoid schizophrenia F20.0 [facility] [address] [address] February, Paranoid schizophrenia F20.0 [facility] [address] [address] February, Paranoid schizophrenia F20.0 ; Posttraum atic stress disorder F43.10 ; Attention deficit hyperactivity disorder (ADHD), inattentive type, 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0 ; Posttraum atic stress disorder F43.10 ; Attention deficit hyperactivity disorder (ADHD), inattentive type, 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 and Borderline personality disorder F60.3 [facility] [address] [place] [id number] [place] [address] Dec, [facility] [address] [address] Nov, Paranoid schizophrenia F20.0 ; Posttraum atic stress disorder F43.10 ; Attention deficit hyperactivity disorder (ADHD), inattentive type, 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 and Borderline personality disorder F60.3 [facility] [address] [address] Nov, [facility] [address] [address] Oct, Paranoid schizophrenia F20.0 [facility] [address] [address] Oct, Paranoid schizophrenia F20.0 ; Posttraum atic stress disorder F43.10 ; Attention deficit hyperactivity disorder (ADHD), inattentive type, 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 ; Borderline personality disorder F60.3 and 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 dispatcher (current) drug therapy Z79.899 [facility] [address] [place] [id number] [place] [address] Oct, [facility] [address] [place] [id number] [place] [address] Oct, [facility] [address] [address] Sep, [facility] [address] [address] Sep, Paranoid schizophrenia F20.0 ; Posttraum atic stress disorder F43.10 ; Attention deficit hyperactivity disorder (ADHD), inattentive type, 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 and Borderline personality disorder F60.3 [facility] [address] [address] Sep, Paranoid schizophrenia F20.0 [facility] [address] [place] [address] Aug, Paranoid schizophrenia F20.0 ; Posttraum atic stress disorder F43.10 ; Attention deficit hyperactivity disorder (ADHD), inattentive type, 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 and Borderline personality disorder F60.3 [facility] [address] [address] Aug, Paranoid schizophrenia F20.0 ; Posttraum atic stress disorder F43.10 ; Attention deficit hyperactivity disorder (ADHD), inattentive type, 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 and Borderline personality disorder F60.3 [facility] [address] [address] Aug, [facility] [address] [address] Jul, Paranoid schizophrenia F20.0 ; Posttraum atic stress disorder F43.10 ; Attention deficit hyperactivity disorder (ADHD), inattentive type, 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 and Borderline personality disorder F60.3 [facility] [address] [address] Jul, Paranoid schizophrenia F20.0 [facility] [address] [address] Jul, Paranoid schizophrenia F20.0 ; Posttraum atic stress disorder F43.10 ; Attention deficit hyperactivity disorder (ADHD), inattentive type, 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 and Borderline personality disorder F60.3 [facility] [address] [address] Jun, Paranoid schizophrenia F20.0 ; Posttraum atic stress disorder F43.10 ; Attention deficit hyperactivity disorder (ADHD), inattentive type, 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 and Borderline personality disorder F60.3 [facility] [address] [address] May, 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 dispatcher (current) drug therapy Z 79.899 [facility] [address] [address] May, [facility] [address] [address] May, [facility] [address] [address] May, Attention deficit hyperactivity disorder (ADHD), inattentive type, 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 [facility] [address] [address] May, [facility] [address] [address] May, Attention deficit hyperactivity disorder (ADHD), inattentive type, 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 [facility] [address] [address] May, Paranoid schizophrenia F20.0 ; Posttraum atic stress disorder F43.10 ; Attention deficit hyperactivity disorder (ADHD), inattentive type, 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 and 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 dispatcher (current) drug therapy Z79.899 [facility] [address] [address] Apr, Paranoid schizophrenia F20.0 [facility] [address] [address] Apr, Paranoid schizophrenia F20.0 ; Posttraum atic stress disorder F43.10 and Attention deficit hyperactivity disorder (ADHD), inattentive type, 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 [facility] [address] [place] [id number] [place] [address] February, [facility] [address] [address] February, Paranoid schizophrenia F20.0 ; Posttraum atic stress disorder F43.10 and Attention deficit hyperactivity disorder (ADHD), inattentive type, 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 [facility] [address] [place] [id number] February, Paranoid schizophrenia F20.0 ; Posttraum atic stress disorder F43.10 and Attention deficit hyperactivity disorder (ADHD), inattentive type, 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 [facility] [address] [place] [id number] Jan, Paranoid schizophrenia F20.0 ; Posttraum atic stress disorder F43.10 and Attention deficit hyperactivity disorder (ADHD), inattentive type, 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 [facility] [address] [id number] Dec, Dental examination Z01.20 [facility] [address] [id number] Nov, Dental examination Z01.20 [facility] [address] [id number] Nov, Dental examination Z01.20 [facility] [address] [place] [id number] Nov, Dental caries K02.9 [facility] [address] [address] Nov, High risk medication use Z79.899 [facility] [address] [place] [id number] Nov, Paranoid schizophrenia F20.0 ; Posttraum atic stress disorder F43.10 ; Attention deficit hyperactivity disorder (ADHD), inattentive type, 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 and Borderline personality disorder in adult F60.3 [facility] [address] [id number] Oct, Dental caries K02.9 [facility] [address] [address] Sep, Paranoid schizophrenia F20.0 ; Posttraum atic stress disorder F43.10 and Attention deficit hyperactivity disorder (ADHD), inattentive type, 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 [facility] [address] [address] 16 Aug, 2016 Paranoid schizophrenia F20.0 ; Posttraum atic stress disorder F43.10 and Attention deficit hyperactivity disorder (ADHD), inattentive type, 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 [facility] [address] [facility] [id number] [address] [place] [address] Aug, Strep throat J02.0 and Cough R05 [facility] [address] [address] Aug, [facility] [address] [address] 24 Jul, 2016 Paranoid schizophrenia F20.0 ; Posttraum atic stress disorder F43.10 and Attention deficit hyperactivity disorder (ADHD), inattentive type, 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 [facility] [address] [address] Jul, [facility] [address] [address] Jun, Paranoid schizophrenia F20.0 ; Posttraum atic stress disorder F43.10 and Attention deficit hyperactivity disorder (ADHD), inattentive type, 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 [facility] [address] [facility] [place] [id number] Jun, Dental examination Z01.20 [facility] [address] [place] [id number] [place] [address] Jun, [facility] [address] [address] May, Paranoid schizophrenia F20.0 [facility] [address] [address] May, Paranoid schizophrenia F20.0 ; Posttraum atic stress disorder F43.10 and Attention deficit hyperactivity disorder (ADHD), inattentive type, 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 [facility] [address] [facility] [place] [address] May, [facility] [address] [facility] [place] [address] May, Paranoid schizophrenia F20.0 [facility] [address] [id number] [place] [address] May, [facility] [address] [id number] [place] [address] May, Paranoid schizophrenia F20.0 [facility] [address] [id number] [place] [address] May, Schizoaffective disorder, unspecified F2 5.9 [facility] [address] [facility] [place] [address] May, Schizoaffective disorder, unspecified F2 5.9 [facility] [address] [facility] [place] [address] May, [facility] [address] [facility] [place] [address] May, Paranoid schizophrenia F20.0 [facility] [address] [facility] [place] [address] May, Paranoid schizophrenia F20.0 ; Posttraum atic stress disorder F43.10 and Attention deficit hyperactivity disorder (ADHD), inattentive type, 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 [facility] [address] [facility] [place] [address] Mar, [facility] [address] [facility] [place] [address] Mar, Paranoid schizophrenia F20.0 ; Posttraum atic stress disorder F43.10 and Attention deficit hyperactivity disorder (ADHD), inattentive type, 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 [facility] [address] [facility] [place] [address] 16 Mar, 2016 Paranoid schizophrenia F20.0 [facility] [address] [facility] [place] [address] Mar, Paranoid schizophrenia F20.0 ; Attention deficit hyperactivity disorder (ADHD), inattentive type, 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 and Posttraumatic stress disorder F43.10 [facility] [address] [address] Mar, [facility] [address] [address] Mar, Paranoid schizophrenia F20.0 ; Posttraum atic stress disorder F43.10 and Attention deficit hyperactivity disorder (ADHD), inattentive type, 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 [facility] [address] [address] February, [facility] [address] [address] February, [facility] [address] [address] February, [facility] [address] [address] February, [facility] [address] [address] Jan, Paranoid schizophrenia F20.0 [facility] [address] [id number] Jan, Dental examination Z01.20 [facility] [address] [id number] Jan, Dental caries K02.9 [facility] [address] [id number] Jan, Dental examination Z01.20 [facility] [address] [id number] Dec, Encounter for dental examination Z01.20 [facility] [address] [address] Dec, Paranoid schizophrenia F20.0 [facility] [address] [id number] Dec, Dental examination Z01.20 [facility] [address] [address] Dec, [facility] [address] [address] Dec, Paranoid schizophrenia F20.0 ; Posttraum atic stress disorder F43.10 and Attention deficit hyperactivity disorder (ADHD), inattentive type, 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 [facility] [address] [address] Nov, Schizoaffective disorder, unspecified F2 5.9 [facility] [address] [address] Oct, Paranoid schizophrenia F20.0 [facility] [address] [address] Oct, [facility] [address] [address] Sep, Paranoid schizophrenia F20.0 ; Posttraum atic stress disorder F43.10 and Attention deficit hyperactivity disorder (ADHD), inattentive type, 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 [facility] [address] [address] Sep, [facility] [address] [address] Sep, Paranoid schizophrenia F20.0 ; Posttraum atic stress disorder F43.10 and Attention deficit hyperactivity disorder (ADHD), inattentive type, 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 [facility] [address] [address] Aug, Paranoid schizophrenia F20.0 [facility] [address] [address] Aug, [facility] [address] [address] Aug, Posttraumatic stress disorder F43.10 ; P aranoid schizophrenia F20.0 and Attention deficit hyperactivity disorder (ADHD), inattentive type, 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 [facility] [address] [address] Jul, Bipolar disorder, unspecified F31.9 [facility] [address] [address] Jul, [facility] [address] [address] Jun, [facility] [address] [address] Jun, Schizoaffective disorder, chronic 295.72 ; Posttraumatic stress disorder 309.81 and Attention deficit disorder of childhood without mention of hyperactivity 314.00 [place] [address] [address] May, [facility] [address] [address] May, [facility] [address] [address] May, Schizoaffective disorder, chronic 295.72 ; Posttraumatic stress disorder 309.81 ; Attention deficit disorder of childhood without mention of hyperactivity 314.00 and Bipolar disorder, unspecified 296.80 [facility] [address] [address] Apr, Schizoaffective disorder, chronic 295.72 [facility] [address] [address] Apr, [facility] [address] [address] Apr, Schizoaffective disorder, chronic 295.72 ; Posttraumatic stress disorder 309.81 and Attention deficit disorder of childhood without mention of hyperactivity 314.00 [facility] [address] [address] Mar, Disorganized schizophrenia, 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 [facility] [address] [address] Mar, [facility] [address] [place] [address] [place] [address] Mar, [facility] [address] [place] [id number] [place] [address] Mar, [facility] [address] [place] [id number] [place] [address] Mar, [facility] [address] [place] [address] [id number] [place] [address] February, Schizoaffective disorder, chronic 295.72 [facility] [address] [address] [id number] [place] [address] February, [facility] [address] [place] [id number] [place] [address] February, Attention deficit disorder of childhood without mention of hyperactivity 314.00 ; Posttraumatic stress disorder 309.81 and Schizoaffective disorder, chronic 295.72 [facility] [address] [place] [id number] [place] [address] Jan, [facility] [address] [place] [id number] [place] [address] Jan, [facility] [address] [place] [id number] [place] [address] Jan, [facility] [id number] [place] [address] Dec, [facility] [id number] [place] [address] Dec, [facility] [id number] [place] [address] Dec, [facility] [id number] [place] [address] Dec, [facility] [id number] [place] [address] Dec, [facility] [id number] [place] [address] Dec, [facility] [id number] [place] [address] Dec, [facility] [address] [id number] [place] [address] Dec, [facility] [address] [id number] [place] [address] Nov, [facility] [address] [id number] [place] [address] Nov, [facility] [address] [id number] [place] [address] Nov, 2014 [facility] [address] [id number] [place] [address] Nov, [facility] [address] [id number] [place] [address] Nov, 2014 [facility] [address] [id number] [place] [address] Nov, 2014 [facility] [address] [id number] [place] [address] Nov, 2014 [facility] [address] [id number] [place] [address] Nov, [facility] [address] [id number] [place] [address] Nov, [facility] [address] [id number] [place] [address] Nov, [facility] [address] [id number] [place] [address] Oct, [facility] [address] [id number] [place] [address] Oct, [facility] [address] [id number] [place] [address] Oct, [facility] [address] [id number] [place] [address] Oct, [facility] [address] [id number] [place] [address] Oct, [facility] [address] [id number] [place] [address] Oct, [facility] [address] [id number] [place] [address] Oct, [facility] [address] [id number] [place] [address] 17 Sep, 2014 [facility] [address] [id number] [place] [address] Sep, [facility] [address] [id number] [place] [address] Sep, [facility] [address] [id number] [place] [address] Sep, [facility] [address] [id number] [place] [address] Aug, [facility] [address] [id number] [place] [address] Aug, [facility] [address] [id number] [place] [address] Aug, [facility] [address] [id number] [place] [address] Aug, [facility] [address] [id number] [place] [address] Aug, [facility] [address] [id number] [place] [address] Aug, [facility] [address] [id number] [place] [address] Jul, [facility] [address] [id number] [place] [address] Jul, [facility] [address] [id number] [place] [address] Jul, [facility] [address] [id number] [place] [address] Jul, [facility] [address] [id number] [place] [address] 15 Jul, 2014 [facility] [address] [id number] [place] [address] 15 Jul, 2014 [facility] [address] [facility] [id number] [place] [address] 27 Jun, 2013 [facility] [address] [facility] [id number] [place] [address] 27 Jun, 2013 [facility] [address] [id number] [place] [address] 26 Jun, 2013 [facility] [address] [facility] [id number] [place] [address] 26 Jun, 2013 [facility] [address] [id number] [place] [address] Jun, 2013 [facility] [address] [id number] [place] [address] Jun, 2013 [facility] [address] [id number] [place] [address] 16 Jun, 2013 [facility] [address] [facility] [id number] [place] [address] 16 Jun, 2013 [facility] [address] [id number] [place] [address] 16 Jun, 2013 [facility] [address] [facility] [id number] [place] [address] 16 Jun, 2013 [facility] [address] [id number] [place] [address] Jun, 2013 [facility] [address] [facility] [id number] [place] [address] May, [facility] [address] [id number] [place] [address] May, [facility] [address] [facility] [id number] [place] [address] May, [facility] [address] [id number] [place] [address] May, [facility] [address] [id number] [place] [address] May, [facility] [address] [id number] [place] [address] May, [facility] [address] [facility] [id number] [place] [address] May, [facility] [address] [id number] [place] [address] May, [facility] [address] [facility] [id number] [place] [address] May, [facility] [address] [id number] [place] [address] May, [facility] [address] [id number] [place] [address] Apr, [facility] [address] [id number] [place] [address] Apr, [facility] [address] [id number] [place] [address] Apr, [facility] [address] [facility] [id number] [place] [address] Apr, [facility] [address] [id number] [place] [address] Apr, [facility] [address] [id number] [place] [address] Apr, [facility] [address] [id number] [place] [address] Apr, [facility] [address] [facility] [id number] [place] [address] Apr, [facility] [address] [id number] [place] [address] Apr, [facility] [address] [id number] [place] [address] Apr, [facility] [address] [id number] [place] [address] Mar, [facility] [address] [facility] [id number] [place] [address] Mar, [facility] [address] [id number] [place] [address] Mar, [facility] [address] [id number] [place] [address] 24 Mar, 2014 [facility] [address] [id number] [place] [address] Mar, [facility] [address] [facility] [id number] [place] [address] 18 Mar, 2014 [facility] [address] [id number] [place] [address] 18 Mar, 2014 [facility] [address] [id number] [place] [address] 16 Mar, 2014 [facility] [address] [id number] [place] [address] 16 Mar, 2014 [facility] [address] [id number] [place] [address] Mar, [facility] [address] [id number] [place] [address] Mar, [facility] [address] [id number] [place] [address] Mar, [facility] [address] [id number] [place] [address] Mar, [facility] [address] [id number] [place] [address] Mar, [facility] [address] [id number] [place] [address] 09 Mar, 2014 [facility] [address] [id number] [place] [address] Mar, [facility] [address] [id number] [place] [address] 09 Mar, 2014 [facility] [address] [id number] [place] [address] Mar, [facility] [address] [id number] [place] [address] Mar, [facility] [address] [facility] [id number] [place] [address] Mar, [facility] [address] [facility] [id number] [place] [address] February, [facility] [address] [id number] [place] [address] February, [facility] [address] [id number] [place] [address] February, [facility] [address] [id number] [place] [address] February, [facility] [address] [id number] [place] [address] February, [facility] [address] [id number] [place] [address] February, [facility] [address] [facility] [id number] [place] [address] February, [facility] [address] [id number] [place] [address] February, [facility] [address] [id number] [place] [address] February, [facility] [address] [id number] [place] [address] February, [facility] [address] [facility] [id number] [place] [address] February, [facility] [address] [id number] [place] [address] February, [facility] [address] [facility] [id number] [place] [address] February, [facility] [address] [id number] [place] [address] February, [facility] [address] [id number] [place] [address] February, [facility] [address] [id number] [place] [address] February, [facility] [address] [id number] [place] [address] February, [facility] [address] [id number] [place] [address] February, [facility] [address] [id number] [place] [address] February, [facility] [address] [id number] [place] [address] February, [facility] [address] [id number] [place] [address] February, [facility] [address] [id number] [place] [address] Jan, [facility] [address] [id number] [place] [address] Jan, [facility] [address] [id number] [place] [address] Jan, [facility] [address] [id number] [place] [address] Jan, [facility] [address] [id number] [place] [address] Jan, [facility] [address] [id number] [place] [address] Jan, [facility] [address] [id number] [place] [address] Jan, [facility] [address] [id number] [place] [address] Jan, [facility] [address] [id number] [place] [address] Dec, [facility] [address] [id number] [place] [address] Dec, [facility] [address] [id number] [place] [address] 20 Dec, 2013 [facility] [address] [id number] [place] [address] 19 Dec, 2013 [facility] [address] [id number] [place] [address] 19 Dec, 2013 [facility] [address] [id number] [place] [address] 15 Dec, 2013 [facility] [address] [id number] [place] [address] 15 Dec, 2013 [facility] [address] [id number] [place] [address] 11 Dec, 2013 [facility] [address] [id number] [place] [address] 10 Dec, 2013 [facility] [address] [id number] [place] [address] 10 Dec, 2013 [facility] [address] [id number] [place] [address] 18 Nov, 2013 [facility] [address] [id number] [place] [address] Nov, [facility] [address] [id number] [place] [address] Nov, [facility] [address] [id number] [place] [address] Nov, [facility] [address] [id number] [place] [address] 05 Nov, 2013 [facility] [address] [id number] [place] [address] Oct, [facility] [address] [id number] [place] [address] Oct, [facility] [address] [id number] [place] [address] 16 Oct, 2013 [facility] [address] [id number] [place] [address] Sep, [facility] [address] [id number] [place] [address] Sep, [facility] [address] [id number] [place] [address] Sep, [facility] [address] [id number] [place] [address] Sep, [facility] [address] [id number] [place] [address] Aug, [facility] [address] [id number] [place] [address] Aug, [facility] [address] [id number] [place] [address] Jul, [facility] [address] [id number] [place] [address] Jul, [facility] [address] [id number] [place] [address] Jul, [facility] [address] [id number] [place] [address] Jul, [facility] [address] [id number] [place] [address] Jul, [facility] [address] [id number] [place] [address] Jun, [facility] [address] [id number] [place] [address] 25 Jun, 2012 [facility] [address] [id number] [place] [address] 19 Sep, 2012 [facility] [address] [id number] [place] [address] 18 Sep, 2012 [facility] [address] [id number] [place] [address] 16 Sep, 2012 [facility] [address] [id number] [place] [address] 12 Sep, 2012 [facility] [address] [id number] [facility] [place] [address] Jun, [facility] [address] [id number] [place] [address] May, [facility] [address] [id number] [place] [address] May, [facility] [address] [id number] [place] [address] Apr, [facility] [address] [id number] [place] [address] Apr, [facility] [address] [id number] [place] [address] Apr, [facility] [address] [id number] [place] [address] Mar, [facility] [address] [id number] [place] [address] Mar, [facility] [address] [id number] [place] [address] February, [facility] [address] [id number] [place] [address] February, [facility] [address] [id number] [place] [address] February, [facility] [address] [id number] [place] [address] February, [facility] [address] [id number] [place] [address] Jan, [facility] [address] [id number] [place] [address] Jan, [facility] [address] [id number] [place] [address] Jan, [facility] [address] [id number] [place] [address] Dec, [facility] [address] [id number] [place] [address] Dec, [facility] [address] [id number] [place] [address] Dec, [facility] [address] [id number] [place] [address] Dec, [facility] [address] [id number] [place] [address] Nov, [facility] [address] [id number] [place] [address] Nov, [facility] [address] [id number] [place] [address] Oct, [facility] [address] [id number] [place] [address] Oct, [facility] [address] [id number] [place] [address] Oct, [facility] [address] [id number] [place] [address] Oct, [facility] [address] [id number] [place] [address] Aug, [facility] [address] [id number] [place] [address] Aug, [facility] [address] [id number] [place] [address] Jun, [facility] [address] [id number] [place] [address] May, [facility] [address] [id number] [place] [address] May, [facility] [address] [id number] [place] [address] Apr, [facility] [address] [id number] [place] [address] Apr, [facility] [address] [id number] [place] [address] Apr, [facility] [address] [id number] [place] [address] 20 Mar, 2012 [facility] [address] [id number] [facility] [place] [address] Mar, [facility] [address] [id number] [place] [address] 13 Mar, 2012 [facility] [address] [id number] [place] [address] Mar, [facility] [address] [id number] [place] [address] Mar, [facility] [address] [id number] [place] [address] February, [facility] [address] [id number] [place] [address] February, [facility] [address] [id number] [place] [address] February, [facility] [address] [id number] [place] [address] February, [facility] [address] [id number] [place] [address] February, [facility] [address] [id number] [place] [address] February, [facility] [address] [id number] [place] [address] February, [facility] [address] [id number] [place] [address] Jan, [facility] [address] [id number] [place] [address] 18 Jan, 2012 [facility] [address] [id number] [place] [address] 17 Jan, 2012 [facility] [address] [id number] [place] [address] 13 Jan, 2012 [facility] [address] [id number] [place] [address] 10 Jan, 2012 [facility] [address] [id number] [place] [address] Jan, [facility] [address] [id number] [place] [address] 30 Dec, 2011 [facility] [address] [id number] [place] [address] 24 Dec, 2011 [facility] [address] [id number] [place] [address] Dec, [facility] [address] [id number] [place] [address] Dec, [facility] [address] [id number] [place] [address] 06 Dec, 2011 [facility] [address] [id number] [place] [address] Nov, [facility] [address] [id number] [place] [address] Nov, [facility] [address] [id number] [place] [address] Nov, [facility] [address] [id number] [place] [address] 14 Nov, 2011 [facility] [address] [id number] [place] [address] Nov, [facility] [address] [id number] [place] [address] Nov, [facility] [address] [id number] [place] [address] Oct, [facility] [address] [id number] [place] [address] Oct, [facility] [address] [id number] [place] [address] Oct, [facility] [address] [id number] [place] [address] Oct, [facility] [address] [id number] [place] [address] Oct, [facility] [address] [id number] [place] [address] Sep, [facility] [address] [id number] [place] [address] Sep, [facility] [address] [id number] [place] [address] Sep, [facility] [address] [id number] [place] [address] 14 Sep, 2011 [facility] [address] [id number] [place] [address] 14 Sep, 2011 [facility] [address] [id number] [place] [address] Sep, [facility] [address] [id number] [place] [address] Sep, [facility] [address] [id number] [place] [address] Sep, [facility] [address] [id number] [place] [address] Sep, [facility] [address] [id number] [place] [address] 30 Aug, 2011 [facility] [address] [id number] [place] [address] 30 Aug, 2011 [facility] [address] [id number] [place] [address] Aug, [facility] [address] [id number] [place] [address] Aug, [facility] [address] [id number] [place] [address] Aug, [facility] [address] [id number] [place] [address] Aug, [facility] [address] [id number] [place] [address] 16 Aug, 2011 [facility] [address] [id number] [place] [address] 16 Aug, 2011 [facility] [address] [id number] [place] [address] Aug, [facility] [address] [id number] [place] [address] Aug, [facility] [address] [id number] [place] [address] Aug, [facility] [address] [id number] [place] [address] Aug, [facility] [address] [id number] [place] [address] Jul, [facility] [address] [id number] [place] [address] Jul, [facility] [address] [id number] [place] [address] Jul, [facility] [address] [id number] [place] [address] Jul, [facility] [address] [id number] [place] [address] Jul, [facility] [address] [id number] [place] [address] Jul, [facility] [address] [id number] [place] [address] Jul, [facility] [address] [id number] [place] [address] Jul, [facility] [address] [id number] [place] [address] Jul, [facility] [address] [id number] [place] [address] Jul, [facility] [address] [id number] [place] [address] Nov, [facility] [address] [id number] [place] [address] Aug, [facility] [address] [id number] [place] [address] Aug, [facility] [address] [id number] [place] [address] Aug, [facility] [address] [id number] [place] [address] Aug, [facility] [address] [id number] [place] [address] Jul, IMMUNIZATIONS No Known Immunizations SOCIAL HISTORY [...] attempt by hanging 2015 Hospitalization History [facility] 01/30/2018-02/10/20 08 Hospitalization History [facility] 05/04/18-
--- OUTSIDE RECORDS SUMMARY | 2020-04-04 01:55 | XMS REPORT ---
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 Active 15788616 Problem Generalized anxiety disorder 300.02 A ctive 08827378 Problem Obsessive-compulsive disorders 300.3 Active 274172865 Problem Catatonic schizophrenia, 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 082833940 Problem Disorganized schizophrenia, 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 28799216 Problem Paranoid schizophrenia F20.0 Active 26741101 Problem Borderline personality disorder F60.3 Active 87905233 Problem Paranoid schizophrenia, unspecified condition 295.30 Active 93637204 Problem Schizoaffective disorder, depressive type F25.1 Active 81227819 Problem Bipolar disorder, unspecified 296.80 Active 54290518 Problem Schizoaffective disorder, unspecified F25.9 Active 95700388 Problem Attention deficit hyperactivity disorder (ADHD), inattentive type, 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 37585319 Problem Posttraumatic stress disorder F43.10 Active 38288648 Problem High risk medication use Z79.899 Activ e [id number] ALLERGIES No Information ENCOUNTERS Encounter Location Date Diagnosis [facility] [address] [facility] [id number] [address] [place] [phone] Jun, Paranoid schizophrenia F20.0 ; 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 ; Attention deficit hyperactivity disorder (ADHD), inattentive type, 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 ; Posttraumatic stress disorder F43.10 and Borderline personality disorder F60.3 [facility] [address] [facility] [id number] [address] [place] [phone] Jun, Paranoid schizophrenia F20.0 ; Attention deficit hyperactivity disorder (ADHD), inattentive type, 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 ; Posttraumatic stress disorder F43.10 ; Borderline personality disorder F60.3 and 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 [facility] [address] [id number] [address] [place] [phone] Apr, Paranoid schizophrenia F20.0 ; Posttraumatic stress disorder F43.10 ; Attention deficit hyperactivity disorder (ADHD), inattentive type, 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 and Borderline personality disorder F60.3 [facility] [address] [id number] [address] [place] [phone] Apr, Paranoid schizophrenia F20.0 [facility] [address] [id number] [address] [place] [phone] Apr, Paranoid schizophrenia F20.0 ; Posttraumatic stress disorder F43.10 ; Attention deficit hyperactivity disorder (ADHD), inattentive type, 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 and Borderline personality disorder F60.3 [facility] [address] [id number] [address] [place] [phone] Mar, Paranoid schizophrenia F20.0 [facility] [address] [facility] [id number] [address] [place] [phone] Mar, Paranoid schizophrenia F20.0 ; Posttraumatic stress disorder F43.10 ; Attention deficit hyperactivity disorder (ADHD), inattentive type, 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 and Borderline personality disorder F60.3 [facility] [address] [facility] [id number] [address] [place] [phone] February, Paranoid schizophrenia F20.0 [facility] [address] [id number] [address] [place] [phone] Jan, Paranoid schizophrenia F20.0 ; Posttraumatic stress disorder F43.10 ; Attention deficit hyperactivity disorder (ADHD), inattentive type, 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 and Borderline personality disorder F60.3 [facility] [address] [id number] [address] [place] [phone] Dec, Paranoid schizophrenia F20.0 ; Posttraumatic stress disorder F43.10 ; Attention deficit hyperactivity disorder (ADHD), inattentive type, 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 and Borderline personality disorder F60.3 [facility] [address] [facility] [id number] [address] [place] [phone] Dec, Paranoid schizophrenia F20.0 ; Posttraumatic stress disorder F43.10 ; Attention deficit hyperactivity disorder (ADHD), inattentive type, 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 and Borderline personality disorder F60.3 [facility] [address] [facility] [id number] [address] [place] [phone] Oct, Paranoid schizophrenia F20.0 ; Posttraumatic stress disorder F43.10 ; Attention deficit hyperactivity disorder (ADHD), inattentive type, 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 and Borderline personality disorder F60.3 [facility] [address] [facility] [id number] [address] [place] [phone] Oct, Paranoid schizophrenia F20.0 ; Posttraumatic stress disorder F43.10 ; Attention deficit hyperactivity disorder (ADHD), inattentive type, 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 and Borderline personality disorder F60.3 [facility] [address] [facility] [id number] [address] [place] [phone] Aug, [facility] [address] [facility] [id number] [address] [place] [phone] Aug, Paranoid schizophrenia F20.0 ; Posttraumatic stress disorder F43.10 ; Attention deficit hyperactivity disorder (ADHD), inattentive type, 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 and Borderline personality disorder F60.3 [facility] [address] [facility] [id number] [address] [place] [phone] Jul, Dry skin dermatitis L85.3 [facility] [address] [facility] [id number] [address] [place] [phone] Jul, [facility] [address] [facility] [id number] [address] [place] [phone] Jul, Paranoid schizophrenia F20.0 [facility] [address] [facility] [id number] [address] [place] [phone] May, Paranoid schizophrenia F20.0 ; Posttraumatic stress disorder F43.10 ; Attention deficit hyperactivity disorder (ADHD), inattentive type, 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 and Borderline personality disorder F60.3 [facility] [address] [id number] [address] [place] [phone] May, [facility] [address] [id number] [address] [place] [phone] May, Paranoid schizophrenia F20.0 [facility] [address] [id number] [address] [place] [phone] May, Paranoid schizophrenia F20.0 ; Posttraumatic stress disorder F43.10 ; Attention deficit hyperactivity disorder (ADHD), inattentive type, 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 and Borderline personality disorder F60.3 [facility] [address] [id number] [address] [place] [phone] Apr, [facility] [address] [id number] [address] [place] [phone] Apr, Paranoid schizophrenia F20.0 ; Posttraumatic stress disorder F43.10 ; Attention deficit hyperactivity disorder (ADHD), inattentive type, 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 and Borderline personality disorder F60.3 [facility] [address] [id number] [address] [place] [phone] Apr, [facility] [address] [id number] [address] [place] [phone] Apr, Schizoaffective disorder, de pressive type F25.1 and Borderline personality disorder F60.3 [facility] [address] [id number] [address] [place] [phone] Apr, Paranoid schizophrenia F20.0 ; Posttraumatic stress disorder F43.10 ; Attention deficit hyperactivity disorder (ADHD), inattentive type, 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 and Borderline personality disorder F60.3 [facility] [address] [id number] [address] [place] [phone] Apr, [facility] [address] [id number] [address] [place] [phone] Apr, Paranoid schizophrenia F20.0 ; Posttraumatic stress disorder F43.10 ; Attention deficit hyperactivity disorder (ADHD), inattentive type, 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 and Borderline personality disorder F60.3 [facility] [address] [id number] [address] [place] [phone] Apr, [facility] [address] [id number] [address] [place] [phone] Mar, Paranoid schizophrenia F20.0 [facility] [address] [id number] [address] [place] [phone] Mar, [facility] [address] [id number] [address] [place] [phone] Mar, Paranoid schizophrenia F20.0 ; Posttraumatic stress disorder F43.10 ; Attention deficit hyperactivity disorder (ADHD), inattentive type, 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 and Borderline personality disorder F60.3 [facility] [address] [id number] [address] [place] [phone] February, Paranoid schizophrenia F20.0 [facility] [address] [id number] [address] [place] [phone] February, Paranoid schizophrenia F20.0 ; Posttraumatic stress disorder F43.10 ; Attention deficit hyperactivity disorder (ADHD), inattentive type, 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 and Borderline personality disorder F60.3 [facility] [address] [id number] [address] [place] [phone] February, Paranoid schizophrenia F20.0 ; Posttraumatic stress disorder F43.10 ; Attention deficit hyperactivity disorder (ADHD), inattentive type, 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 and Borderline personality disorder F60.3 [facility] [address] [id number] [address] [place] [phone] February, [facility] [address] [id number] [address] [place] [phone] February, Paranoid schizophrenia F20.0 [facility] [address] [id number] [address] [place] [phone] February, Paranoid schizophrenia F20.0 [facility] [address] [id number] [address] [place] [phone] February, Paranoid schizophrenia F20.0 ; Posttraumatic stress disorder F43.10 ; Attention deficit hyperactivity disorder (ADHD), inattentive type, 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 and Borderline personality disorder F60.3 [facility] [address] [facility] [id number] [address] [place] [phone] Jan, Paranoid schizophrenia F20.0 ; Posttraumatic stress disorder F43.10 ; Attention deficit hyperactivity disorder (ADHD), inattentive type, 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 and Borderline personality disorder F60.3 [facility] [address] [facility] [id number] [address] [place] [id number] Jan, Paranoid schizophrenia F20.0 [facility] [address] [facility] [id number] [address] [place] [phone] Jan, Paranoid schizophrenia F20.0 [facility] [address] [facility] [id number] [address] [place] [phone] Jan, Paranoid schizophrenia F20.0 ; Posttraumatic stress disorder F43.10 ; Attention deficit hyperactivity disorder (ADHD), inattentive type, 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 and Borderline personality disorder F60.3 [facility] [address] [facility] [id number] [address] [place] [phone] Dec, [facility] [address] [facility] [id number] [address] [place] [phone] Nov, Paranoid schizophrenia F20.0 ; Posttraumatic stress disorder F43.10 ; Attention deficit hyperactivity disorder (ADHD), inattentive type, 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 and Borderline personality disorder F60.3 [facility] [address] [facility] [id number] [address] [place] [phone] Nov, [facility] [address] [facility] [id number] [address] [place] [phone] Oct, Paranoid schizophrenia F20.0 [facility] [address] [id number] [address] [place] [phone] Oct, Paranoid schizophrenia F20.0 ; Posttraumatic stress disorder F43.10 ; Attention deficit hyperactivity disorder (ADHD), inattentive type, 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 ; Borderline personality disorder F60.3 and Other penitentiary (current) drug therapy Z79.899 [facility] [address] [id number] [address] [place] [phone] Oct, [facility] [address] [id number] [address] [place] [phone] Oct, [facility] [address] [id number] [address] [place] [phone] Sep, [facility] [address] [id number] [address] [place] [phone] Sep, Paranoid schizophrenia F20.0 ; Posttraumatic stress disorder F43.10 ; Attention deficit hyperactivity disorder (ADHD), inattentive type, 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 and Borderline personality disorder F60.3 [facility] [address] [id number] [address] [place] [phone] Sep, Paranoid schizophrenia F20.0 [facility] [address] [id number] [address] [place] [phone] Aug, Paranoid schizophrenia F20.0 ; Posttraumatic stress disorder F43.10 ; Attention deficit hyperactivity disorder (ADHD), inattentive type, 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 and Borderline personality disorder F60.3 [facility] [address] [id number] [address] [place] [phone] Aug, Paranoid schizophrenia F20.0 ; Posttraumatic stress disorder F43.10 ; Attention deficit hyperactivity disorder (ADHD), inattentive type, 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 and Borderline personality disorder F60.3 [facility] [address] [id number] [address] [place] [id number] Aug, [facility] [address] [id number] [address] [place] [phone] Jul, Paranoid schizophrenia F20.0 ; Posttraumatic stress disorder F43.10 ; Attention deficit hyperactivity disorder (ADHD), inattentive type, 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 and Borderline personality disorder F60.3 [facility] [address] [facility] [id number] [address] [place] [phone] Jul, Paranoid schizophrenia F20.0 [facility] [address] [id number] [address] [place] [phone] Jul, Paranoid schizophrenia F20.0 ; Posttraumatic stress disorder F43.10 ; Attention deficit hyperactivity disorder (ADHD), inattentive type, 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 and Borderline personality disorder F60.3 [facility] [address] [facility] [id number] [address] [place] [phone] Jun, Paranoid schizophrenia F20.0 ; Posttraumatic stress disorder F43.10 ; Attention deficit hyperactivity disorder (ADHD), inattentive type, 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 and Borderline personality disorder F60.3 [facility] [address] [facility] [id number] [address] [place] [phone] May, Other penitentiary (current) dr gabriel parra Z79.899 [facility] [address] [facility] [id number] [address] [place] [phone] May, [facility] [address] [facility] [id number] [address] [place] [phone] May, [facility] [address] [facility] [id number] [address] [place] [phone] May, Attention deficit hyperactiv ity disorder (ADHD), inattentive type, mild F90.0 [facility] [address] [facility] [id number] [address] [place] [phone] May, [facility] [address] [facility] [id number] [address] [place] [phone] May, Attention deficit hyperactiv ity disorder (ADHD), inattentive type, mild F90.0 [facility] [address] [facility] [id number] [address] [place] [phone] May, Paranoid schizophrenia F20.0 ; Posttraumatic stress disorder F43.10 ; Attention deficit hyperactivity disorder (ADHD), inattentive type, 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 and Other penitentiary (current) drug therapy Z79.899 [facility] [address] [id number] [address] [place] [id number] Apr, Paranoid schizophrenia F20.0 [facility] [address] [id number] [address] [place] [id number] Apr, Paranoid schizophrenia F20.0 ; Posttraumatic stress disorder F43.10 and Attention deficit hyperactivity disorder (ADHD), inattentive type, 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 [facility] [address] [facility] [id number] [address] [place] [phone] February, [facility] [address] [facility] [id number] [address] [place] [phone] February, Paranoid schizophrenia F20.0 ; Posttraumatic stress disorder F43.10 and Attention deficit hyperactivity disorder (ADHD), inattentive type, 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 [facility] [address] [facility] [id number] [address] [place] [phone] February, Paranoid schizophrenia F20.0 ; Posttraumatic stress disorder F43.10 and Attention deficit hyperactivity disorder (ADHD), inattentive type, 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 [facility] [address] [facility] [id number] [address] [place] [phone] Jan, Paranoid schizophrenia F20.0 ; Posttraumatic stress disorder F43.10 and Attention deficit hyperactivity disorder (ADHD), inattentive type, 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 [facility] [address] [id number] [address] [place] [address] [id number] Dec, Dental examination Z01.20 [facility] [address] [id number] [address] [place] [id number] Nov, Dental examination Z01.20 [facility] [address] [id number] [address] [place] [address] [id number] Nov, Dental examination Z01.20 [facility] [address] [id number] [address] [place] [address] [id number] Nov, 2016 Dental caries K02.9 [facility] [address] [facility] [id number] [address] [place] [id number] 13 Nov, 2016 High risk medication use Z79 .899 [facility] [address] [facility] [id number] [address] [place] [phone] Nov, Paranoid schizophrenia F20.0 ; Posttraumatic stress disorder F43.10 ; Attention deficit hyperactivity disorder (ADHD), inattentive type, 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 and Borderline personality disorder in adult F60.3 [facility] [address] [id number] [address] [place] [address] [phone] Oct, Dental caries K02.9 [facility] [address] [facility] [id number] [address] [place] [phone] Sep, Paranoid schizophrenia F20.0 ; Posttraumatic stress disorder F43.10 and Attention deficit hyperactivity disorder (ADHD), inattentive type, 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 [facility] [address] [facility] [id number] [address] [place] [phone] Aug, Paranoid schizophrenia F20.0 ; Posttraumatic stress disorder F43.10 and Attention deficit hyperactivity disorder (ADHD), inattentive type, 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 [facility] [address] [facility] [id number] [address] [place] [phone] Aug, Strep throat J02.0 and Cough R05 [facility] [address] [facility] [id number] [address] [place] [phone] Aug, [facility] [address] [facility] [id number] [address] [place] [phone] Jul, Paranoid schizophrenia F20.0 ; Posttraumatic stress disorder F43.10 and Attention deficit hyperactivity disorder (ADHD), inattentive type, 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 [facility] [address] [facility] [id number] [address] [place] [phone] Jul, [facility] [address] [id number] [address] [place] [phone] Jun, Paranoid schizophrenia F20.0 ; Posttraumatic stress disorder F43.10 and Attention deficit hyperactivity disorder (ADHD), inattentive type, 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 [facility] [address] [id number] [address] [place] [address] [id number] Jun, Dental examination Z01.20 [facility] [address] [id number] [address] [place] [phone] Jun, [facility] [address] [id number] [address] [place] [phone] May, Paranoid schizophrenia F20.0 [facility] [address] [id number] [address] [place] [phone] May, Paranoid schizophrenia F20.0 ; Posttraumatic stress disorder F43.10 and Attention deficit hyperactivity disorder (ADHD), inattentive type, 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 [facility] [address] [id number] [address] [place] [phone] May, [facility] [address] [id number] [address] [place] [phone] May, Paranoid schizophrenia F20.0 [facility] [address] [id number] [address] [place] [phone] May, [facility] [address] [id number] [address] [place] [phone] May, Paranoid schizophrenia F20.0 [facility] [address] [id number] [address] [place] [phone] May, Schizoaffective disorder, un specified F25.9 [facility] [address] [id number] [address] [place] [phone] May, Schizoaffective disorder, un specified F25.9 [facility] [address] [id number] [address] [place] [phone] May, [facility] [address] [id number] [address] [place] [phone] May, Paranoid schizophrenia F20.0 [facility] [address] [id number] [address] [place] [phone] May, Paranoid schizophrenia F20.0 ; Posttraumatic stress disorder F43.10 and Attention deficit hyperactivity disorder (ADHD), inattentive type, 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 [facility] [address] [id number] [address] [place] [phone] Mar, [facility] [address] [id number] [address] [place] [phone] Mar, Paranoid schizophrenia F20.0 ; Posttraumatic stress disorder F43.10 and Attention deficit hyperactivity disorder (ADHD), inattentive type, 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 [facility] [address] [id number] [address] [place] [id number] Mar, Paranoid schizophrenia F20.0 [facility] [address] [id number] [address] [place] [id number] Mar, Paranoid schizophrenia F20.0 ; Attention deficit hyperactivity disorder (ADHD), inattentive type, 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 and Posttraumatic stress disorder F43.10 [facility] [address] [id number] [address] [place] [id number] Mar, [facility] [address] [id number] [address] [place] [id number] Mar, Paranoid schizophrenia F20.0 ; Posttraumatic stress disorder F43.10 and Attention deficit hyperactivity disorder (ADHD), inattentive type, 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 [facility] [address] [id number] [address] [place] [place] [place] [id number] February, [facility] [address] [id number] [address] [place] [phone] February, [facility] [address] [id number] [address] [place] [phone] February, [facility] [address] [id number] [address] [place] [phone] February, [facility] [address] [id number] [address] [place] [address] Jan, Paranoid schizophrenia F20.0 [facility] [address] [id number] [address] [place] [phone] Jan, Dental examination Z01.20 [facility] [address] [id number] [address] [place] [address] [id number] Jan, Dental caries K02.9 [facility] [address] [id number] [address] [place] [address] [phone] Jan, Dental examination Z01.20 [facility] [id number] [place] [address] [id number] Dec, Encounter for dental examina tion Z01.20 [facility] [address] [id number] [address] [place] [phone] Dec, Paranoid schizophrenia F20.0 [facility] [id number] [place] [address] [id number] Dec, Dental examination Z01.20 [facility] [address] [id number] [address] [place] [phone] Dec, [facility] [address] [id number] [address] [place] [phone] Dec, Paranoid schizophrenia F20.0 ; Posttraumatic stress disorder F43.10 and Attention deficit hyperactivity disorder (ADHD), inattentive type, 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 [facility] [address] [id number] [address] [place] [phone] Nov, Schizoaffective disorder, un specified F25.9 [facility] [address] [id number] [address] [place] [phone] Oct, Paranoid schizophrenia F20.0 [facility] [address] [id number] [address] [place] [phone] 07 Oct, 2015 [facility] [address] [facility] [id number] [address] [place] [phone] Sep, Paranoid schizophrenia F20.0 ; Posttraumatic stress disorder F43.10 and Attention deficit hyperactivity disorder (ADHD), inattentive type, 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 [facility] [address] [facility] [id number] [address] [place] [phone] Sep, [facility] [address] [facility] [id number] [address] [place] [phone] Sep, Paranoid schizophrenia F20.0 ; Posttraumatic stress disorder F43.10 and Attention deficit hyperactivity disorder (ADHD), inattentive type, 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 [facility] [address] [facility] [id number] [address] [place] [phone] Aug, Paranoid schizophrenia F20.0 [facility] [address] [facility] [id number] [address] [place] [phone] Aug, [facility] [address] [facility] [id number] [address] [place] [id number] Aug, Posttraumatic stress disorde r F43.10 ; Paranoid schizophrenia F20.0 and Attention deficit hyperactivity disorder (ADHD), inattentive type, 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 [facility] [address] [place] [id number] [address] [place] [phone] Jul, Bipolar disorder, unspecifie d F31.9 [facility] [address] [facility] [id number] [address] [place] [phone] Jul, [facility] [address] [facility] [id number] [address] [place] [phone] Jun, [facility] [address] [facility] [id number] [address] [place] [phone] Jun, Schizoaffective disorder, ch ronic 295.72 ; Posttraumatic stress disorder 309.81 and Attention deficit disorder of childhood without mention of hyperactivity 314.00 [facility] [address] [place] [id number] [address] [place] [phone] May, [facility] [address] [id number] [address] [place] [phone] May, [facility] [address] [id number] [address] [place] [phone] May, Schizoaffective disorder, ch ronic 295.72 ; Posttraumatic stress disorder 309.81 ; Attention deficit disorder of childhood without mention of hyperactivity 314.00 and Bipolar disorder, unspecified 296.80 [facility] [address] [id number] [address] [place] [phone] Apr, Schizoaffective disorder, ch ronic 295.72 [facility] [address] [id number] [address] [place] [phone] Apr, [facility] [address] [id number] [address] [place] [id number] Apr, Schizoaffective disorder, ch ronic 295.72 ; Posttraumatic stress disorder 309.81 and Attention deficit disorder of childhood without mention of hyperactivity 314.00 [facility] [address] [id number] [address] [place] [phone] Mar, Disorganized schizophrenia, 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 [facility] [address] [id number] [address] [place] [phone] Mar, [facility] [address] [id number] [address] [place] [phone] Mar, [facility] [address] [id number] [address] [place] [phone] Mar, [facility] [address] [facility] [id number] [address] [place] [phone] Mar, [facility] [address] [facility] [id number] [address] [place] [phone] February, Schizoaffective disorder, ch ronic 295.72 [facility] [address] [facility] [id number] [address] [place] [address] February, [facility] [address] [id number] [address] [place] [address] February, Attention 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 ; Posttraumatic stress disorder 309.81 and Schizoaffective disorder, chronic 295.72 [facility] [address] [id number] [address] [place] [phone] Jan, [facility] [address] [id number] [address] [place] [phone] Jan, [facility] [address] [id number] [address] [place] [phone] Jan, [facility] [address] [id number] [address] [place] [phone] Dec, [facility] [address] [id number] [address] [place] [phone] Dec, [facility] [address] [id number] [address] [place] [id number] Dec, [facility] [address] [id number] [address] [place] [phone] Dec, [facility] [address] [id number] [address] [place] [phone] Dec, [facility] [address] [id number] [address] [place] [phone] Dec, [facility] [address] [id number] [address] [place] [phone] Dec, [facility] [address] [id number] [address] [place] [phone] Dec, [facility] [address] [id number] [address] [place] [phone] Nov, [facility] [address] [id number] [address] [place] [id number] Nov, [facility] [address] [id number] [address] [place] [address], [place] [address] Nov, 2014 [facility] [address] [id number] [address] [place] [address], [place] [address] Nov, 2014 [facility] [address] [id number] [address] [place] [address], [place] [address] Nov, 2014 [facility] [address] [id number] [address] [place] [address], [place] [address] Nov, 2014 [facility] [address] [id number] [address] [place] [address], [place] [address] Nov, [facility] [address] [id number] [address] [place] [address], [place] [address] Nov, [facility] [address] [id number] [address] [place] [address], [place] [address] Nov, [facility] [address] [id number] [address] [place] [address], [place] [address] Nov, [facility] [address] [id number] [address] [place] [address], [place] [address] Oct, [facility] [address] [id number] [address] [place] [address], [place] [address] Oct, [facility] [address] [id number] [address] [place] [address], [place] [address] Oct, [facility] [address] [id number] [address] [place] [phone] Oct, [facility] [address] [id number] [address] [place] [address], [place] [address] Oct, [facility] [address] [id number] [address] [place] [address], [place] [address] Oct, [facility] [address] [id number] [address] [place] [phone] Oct, [facility] [address] [id number] [address] [place] [phone] 17 Sep, 2014 [facility] [address] [id number] [address] [place] [address], [place] [address] 17 Sep, 2014 [facility] [address] [id number] [address] [place] [address], [place] [address] 15 Sep, 2014 [facility] [address] [id number] [address] [place] [address], [place] [address] 15 Sep, 2014 [facility] [address] [id number] [address] [place] [address], [place] [address] Aug, [facility] [address] [id number] [address] [place] [address], [place] [address] Aug, [facility] [address] [id number] [address] [place] [address], [place] [address] Aug, [facility] [address] [id number] [address] [place] [address], [place] [address] Aug, [facility] [address] [id number] [address] [place] [address], [place] [address] Aug, [facility] [address] [id number] [address] [place] [address], [place] [address] Aug, [facility] [address] [id number] [address] [place] [address], [place] [address] 29 Jul, 2014 [facility] [address] [id number] [address] [place] [address], [place] [address] 29 Jul, 2014 [facility] [address] [id number] [address] [place] [phone] 24 Jul, 2014 [facility] [address] [id number] [address] [place] [address], [place] [address] 24 Jul, 2014 [facility] [address] [id number] [address] [place] [address], [place] [address] 15 Jul, 2014 [facility] [address] [id number] [address] [place] [address], [place] [address] 15 Jul, 2014 [facility] [address] [id number] [facility] [place] [address] 27 Sep, 2013 [facility] [address] [id number] [facility] [place] [address] 27 Sep, 2013 [facility] [address] [id number] [facility] [place] [address] 26 Jun, 2013 [facility] [address] [id number] [facility] [place] [address] 26 Jun, 2013 [facility] [address] [id number] [facility] [place] [address] 26 Jun, 2013 [facility] [address] [id number] [address] [place] [address], [place] [address] 26 Jun, 2013 [facility] [address] [id number] [address] [place] [address], [place] [address] 16 Jun, 2013 [facility] [address] [id number] [address] [place] [address], [place] [address] 16 Jun, 2013 [facility] [address] [id number] [address] [place] [address], [place] [address] 16 Jun, 2013 [facility] [address] [id number] [address] [place] [address], [place] [address] 16 Jun, 2013 [facility] [address] [id number] [address] [place] [address], [place] [address] 04 Jun, 2013 [facility] [address] [id number] [address] [place] [address], [place] [address] May, [facility] [address] [id number] [address] [place] [address], [place] [address] May, [facility] [address] [id number] [address] [place] [address], [place] [address] May, [facility] [address] [id number] [address] [place] [address], [place] [address] May, [facility] [address] [id number] [address] [place] [address], [place] [address] May, [facility] [address] [id number] [facility] [place] [address] May, [facility] [address] [id number] [address] [place] [address], [place] [address] May, [facility] [address] [id number] [address] [place] [address], [place] [address] May, [facility] [address] [id number] [address] [place] [address], [place] [address] May, [facility] [address] [id number] [address] [place] [address], [place] [address] May, [facility] [address] [id number] [address] [place] [address], [place] [address] Apr, [facility] [address] [id number] [address] [place] [address], [place] [address] Apr, [facility] [address] [id number] [address] [place] [address], [place] [address] Apr, [facility] [address] [id number] [address] [place] [address], [place] [address] Apr, [facility] [address] [id number] [address] [place] [address], [place] [address] Apr, [facility] [address] [id number] [address] [place] [address], [place] [address] Apr, [facility] [address] [id number] [address] [place] [address], [place] [address] Apr, [facility] [address] [id number] [address] [place] [address], [place] [address] Apr, [facility] [address] [id number] [address] [place] [address], [place] [address] Apr, [facility] [address] [id number] [address] [place] [address], [place] [address] Apr, [facility] [address] [id number] [address] [place] [address], [place] [address] Mar, [facility] [address] [id number] [facility] [place] [address] Mar, [facility] [address] [id number] [facility] [place] [address] 25 Mar, 2014 [facility] [address] [id number] [address] [place] [address], [place] [address] 24 Mar, 2014 [facility] [address] [id number] [address] [place] [address], [place] [address] 20 Mar, 2014 [facility] [address] [id number] [address] [place] [address], [place] [address] 18 Mar, 2014 [facility] [address] [id number] [address] [place] [address], [place] [address] 18 Mar, 2014 [facility] [address] [id number] [address] [place] [address], [place] [address] 16 Mar, 2014 [facility] [address] [id number] [address] [place] [address], [place] [address] 16 Mar, 2014 [facility] [address] [id number] [address] [place] [address], [place] [address] Mar, [facility] [address] [id number] [address] [place] [address], [place] [address] 13 Mar, 2014 [facility] [address] [id number] [address] [place] [address], [place] [address] Mar, [facility] [address] [id number] [address] [place] [address], [place] [address] 11 Mar, 2014 [facility] [address] [id number] [address] [place] [address], [place] [address] 10 Mar, 2014 [facility] [address] [id number] [address] [place] [address], [place] [address] 09 Mar, 2014 [facility] [address] [id number] [address] [place] [address], [place] [address] 09 Mar, 2014 [facility] [address] [id number] [facility] [place] [address] Mar, [facility] [address] [id number] [address] [place] [address], [place] [address] Mar, [facility] [address] [id number] [address] [place] [address], [place] [address] Mar, [facility] [address] [id number] [address] [place] [address], [place] [address] Mar, [facility] [address] [id number] [address] [place] [address], [place] [address] February, [facility] [address] [id number] [address] [place] [address], [place] [address] February, [facility] [address] [id number] [address] [place] [address], [place] [address] February, [facility] [address] [id number] [address] [place] [address], [place] [address] February, [facility] [address] [id number] [address] [place] [address], [place] [address] February, [facility] [address] [id number] [address] [place] [address], [place] [address] February, [facility] [address] [id number] [address] [place] [address], [place] [address] February, [facility] [address] [id number] [address] [place] [address], [place] [address] February, [facility] [address] [id number] [address] [place] [address], [place] [address] February, [facility] [address] [id number] [address] [place] [address], [place] [address] February, [facility] [address] [id number] [address] [place] [address], [place] [address] February, [facility] [address] [id number] [address] [place] [address], [place] [address] February, [facility] [address] [id number] [address] [place] [address], [place] [address] February, [facility] [address] [id number] [address] [place] [address], [place] [address] February, [facility] [address] [id number] [address] [place] [address], [place] [address] February, [facility] [address] [id number] [address] [place] [address], [place] [address] February, [facility] [address] [id number] [address] [place] [address], [place] [address] February, [facility] [address] [id number] [address] [place] [address], [place] [address] February, [facility] [address] [id number] [address] [place] [address], [place] [address] February, [facility] [address] [id number] [address] [place] [address], [place] [address] February, [facility] [address] [id number] [address] [place] [address], [place] [address] February, [facility] [address] [id number] [address] [place] [address], [place] [address] Jan, [facility] [address] [id number] [address] [place] [address], [place] [address] Jan, [facility] [address] [id number] [address] [place] [address], [place] [address] Jan, [facility] [address] [id number] [address] [place] [address], [place] [address] Jan, [facility] [address] [id number] [address] [place] [address], [place] [address] Jan, [facility] [address] [id number] [address] [place] [address], [place] [address] Jan, [facility] [address] [id number] [facility] [place] [address] 10 Jan, 2014 [facility] [address] [id number] [address] [place] [address], [place] [address] 10 Jan, 2014 [facility] [address] [id number] [facility] [place] [address] 21 Dec, 2013 [facility] [address] [id number] [address] [place] [address], [place] [address] 20 Dec, 2013 [facility] [address] [id number] [address] [place] [address], [place] [address] 20 Dec, 2013 [facility] [address] [id number] [address] [place] [address], [place] [address] 19 Dec, 2013 [facility] [address] [id number] [address] [place] [address], [place] [address] 19 Dec, 2013 [facility] [address] [id number] [address] [place] [address], [place] [address] 15 Dec, 2013 [facility] [address] [id number] [address] [place] [address], [place] [address] 15 Dec, 2013 [facility] [address] [id number] [address] [place] [address], [place] [address] 11 Dec, 2013 [facility] [address] [id number] [address] [place] [address], [place] [address] 10 Dec, 2013 [facility] [address] [id number] [address] [place] [address], [place] [address] 10 Dec, 2013 [facility] [address] [id number] [address] [place] [address], [place] [address] 18 Nov, 2013 [facility] [address] [id number] [address] [place] [address], [place] [address] 17 Nov, 2013 [facility] [address] [id number] [address] [place] [address], [place] [address] 17 Nov, 2013 [facility] [address] [id number] [address] [place] [address], [place] [address] Nov, [facility] [address] [id number] [address] [place] [address], [place] [address] Nov, [facility] [address] [id number] [address] [place] [address], [place] [address] Oct, [facility] [address] [id number] [address] [place] [address], [place] [address] Oct, [facility] [address] [id number] [address] [place] [address], [place] [address] Oct, [facility] [address] [id number] [address] [place] [address], [place] [address] Sep, [facility] [address] [id number] [address] [place] [address], [place] [address] Sep, [facility] [address] [id number] [address] [place] [address], [place] [address] Sep, [facility] [address] [id number] [address] [place] [address], [place] [address] Sep, [facility] [address] [id number] [address] [place] [address], [place] [address] Aug, [facility] [address] [id number] [address] [place] [address] Aug, [facility] [address] [id number] [address] [place] [address], [place] [address] Jul, [facility] [facility] [address] [id number] [address] [place] [address] Jul, [facility] [address] [id number] [address] [place] [address], [place] [address] Jul, [facility] [address] [id number] [address] [place] [address], [place] [address] Jul, [facility] [address] [id number] [address] [place] [address], [place] [address] Jul, [facility] [address] [id number] [address] [place] [address], [place] [address] 25 Jun, 2012 [facility] [address] [id number] [address] [place] [address], [place] [address] 25 Jun, 2012 [facility] [address] [id number] [address] [place] [address], [place] [address] 19 Jun, 2013 [facility] [address] [id number] [address] [place] [address], [place] [address] 18 Jun, 2013 [facility] [address] [id number] [address] [place] [address], [place] [address] 16 Jun, 2013 [facility] [address] [id number] [address] [place] [address], [place] [address] 12 Jun, 2013 [facility] [address] [id number] [address] [place] [address], [place] [address] 11 Jun, 2013 [facility] [address] [id number] [address] [place] [address], [place] [address] 30 May, 2013 [facility] [address] [id number] [address] [place] [address], [place] [address] May, [facility] [address] [id number] [address] [place] [address], [place] [address] Apr, [facility] [address] [id number] [address] [place] [address], [place] [address] Apr, [facility] [address] [id number] [address] [place] [address], [place] [address] Apr, [facility] [address] [id number] [address] [place] [address], [place] [address] Mar, [facility] [address] [id number] [address] [place] [address], [place] [address] Mar, [facility] [address] [id number] [address] [place] [address], [place] [address] February, [facility] [address] [id number] [address] [place] [address], [place] [address] February, [facility] [address] [id number] [address] [place] [address], [place] [address] February, [facility] [address] [id number] [address] [place] [address], [place] [address] February, [facility] [address] [id number] [address] [place] [address], [place] [address] Jan, [facility] [address] [id number] [address] [place] [address], [place] [address] Jan, [facility] [address] [id number] [address] [place] [address], [place] [address] Jan, [facility] [address] [id number] [address] [place] [address], [place] [address] 29 Dec, 2012 [facility] [address] [id number] [address] [place] [address], [place] [address] Dec, [facility] [address] [id number] [address] [place] [address], [place] [address] Dec, [facility] [address] [id number] [address] [place] [address], [place] [address] Dec, [facility] [address] [id number] [address] [place] [address], [place] [address] Nov, [facility] [address] [id number] [address] [place] [address], [place] [address] Nov, [facility] [address] [id number] [address] [place] [address], [place] [address] Oct, [facility] [address] [id number] [address] [place] [address], [place] [address] Oct, [facility] [address] [id number] [address] [place] [address], [place] [address] Oct, [facility] [address] [id number] [address] [place] [address], [place] [address] Oct, [facility] [address] [id number] [address] [place] [address], [place] [address] Aug, [facility] [address] [id number] [address] [place] [address], [place] [address] Aug, [facility] [address] [id number] [address] [place] [address], [place] [address] Jun, [facility] [address] [id number] [address] [place] [address], [place] [address] May, [facility] [address] [id number] [address] [place] [address], [place] [address] May, [facility] [address] [id number] [address] [place] [address], [place] [address] Apr, [facility] [address] [id number] [address] [place] [address], [place] [address] Apr, [facility] [address] [id number] [address] [place] [address], [place] [address] Apr, [facility] [address] [id number] [address] [place] [address], [place] [address] Mar, [facility] [address] [id number] [address] [place] [address], [place] [address] Mar, [facility] [address] [id number] [address] [place] [address], [place] [address] Mar, [facility] [address] [id number] [address] [place] [address], [place] [address] Mar, [facility] [address] [id number] [address] [place] [address], [place] [address] Mar, [facility] [address] [id number] [address] [place] [address], [place] [address] February, [facility] [address] [id number] [address] [place] [address], [place] [address] February, [facility] [address] [id number] [address] [place] [address], [place] [address] February, [facility] [address] [id number] [address] [place] [address], [place] [address] February, [facility] [address] [id number] [address] [place] [address], [place] [address] February, [facility] [address] [id number] [address] [place] [address], [place] [address] February, [facility] [address] [id number] [address] [place] [address], [place] [address] February, [facility] [address] [id number] [address] [place] [address], [place] [address] Jan, [facility] [address] [id number] [address] [place] [address], [place] [address] 18 Jan, 2012 [facility] [address] [id number] [address] [place] [address], [place] [address] 17 Jan, 2012 [facility] [address] [id number] [address] [place] [address], [place] [address] 13 Jan, 2012 [facility] [address] [id number] [address] [place] [address], [place] [address] 10 Jan, 2012 [facility] [address] [id number] [address] [place] [address], [place] [address] 04 Jan, 2012 [facility] [address] [id number] [address] [place] [address], [place] [address] 30 Dec, 2011 [facility] [address] [id number] [address] [place] [address], [place] [address] 24 Dec, 2011 [facility] [address] [id number] [address] [place] [address], [place] [address] 20 Dec, 2011 [facility] [address] [id number] [address] [place] [address], [place] [address] 13 Dec, 2011 [facility] [address] [id number] [address] [place] [address], [place] [address] 06 Dec, 2011 [facility] [address] [id number] [address] [place] [address], [place] [address] Nov, [facility] [address] [id number] [facility] [place] [address] Nov, [facility] [address] [id number] [address] [place] [address], [place] [address] Nov, [facility] [address] [id number] [address] [place] [address], [place] [address] 14 Nov, 2011 [facility] [address] [id number] [address] [place] [address], [place] [address] Nov, [facility] [address] [id number] [address] [place] [address], [place] [address] Nov, [facility] [address] [id number] [address] [place] [address], [place] [address] Oct, [facility] [address] [id number] [address] [place] [address], [place] [address] Oct, [facility] [address] [id number] [address] [place] [address], [place] [address] Oct, [facility] [address] [id number] [address] [place] [address], [place] [address] Oct, [facility] [address] [id number] [address] [place] [address], [place] [address] Oct, [facility] [address] [id number] [address] [place] [address], [place] [address] Sep, [facility] [address] [id number] [address] [place] [address], [place] [address] Sep, [facility] [address] [id number] [address] [place] [address], [place] [address] Sep, [facility] [address] [id number] [address] [place] [address], [place] [address] Sep, [facility] [address] [id number] [address] [place] [address], [place] [address] Sep, [facility] [address] [id number] [address] [place] [address], [place] [address] 13 Sep, 2011 [facility] [address] [id number] [address] [place] [address], [place] [address] Sep, [facility] [address] [id number] [address] [place] [address], [place] [address] Sep, [facility] [address] [id number] [address] [place] [address], [place] [address] Sep, [facility] [address] [id number] [address] [place] [address], [place] [address] Aug, [facility] [address] [id number] [address] [place] [address], [place] [address] Aug, [facility] [address] [id number] [address] [place] [address], [place] [address] Aug, [facility] [address] [id number] [address] [place] [address], [place] [address] Aug, [facility] [address] [id number] [address] [place] [address], [place] [address] Aug, [facility] [address] [id number] [address] [place] [address], [place] [address] Aug, [facility] [address] [id number] [address] [place] [address], [place] [address] Aug, [facility] [address] [id number] [address] [place] [address], [place] [address] Aug, [facility] [address] [id number] [address] [place] [address], [place] [address] Aug, [facility] [address] [id number] [address] [place] [address], [place] [address] Aug, [facility] [address] [id number] [address] [place] [address], [place] [address] Aug, [facility] [address] [id number] [address] [place] [address], [place] [address] Aug, [facility] [address] [id number] [address] [place] [address], [place] [address] Jul, [facility] [address] [id number] [address] [place] [address], [place] [address] Jul, [facility] [address] [id number] [address] [place] [address], [place] [address] Jul, [facility] [address] [id number] [address] [place] [address], [place] [address] Jul, [facility] [address] [id number] [address] [place] [address], [place] [address] Jul, [facility] [address] [id number] [address] [place] [address], [place] [address] Jul, [facility] [address] [id number] [address] [place] [address], [place] [address] Jul, [facility] [address] [id number] [address] [place] [address] Jul, [facility] [address] [id number] [address] [place] [address], [place] [address] Jul, [facility] [address] [id number] [address] [place] [address] Jul, [facility] [address] [id number] [address] [place] [address] Nov, [facility] [address] [id number] [address] [place] [address] Aug, [facility] [address] [id number] [address] [place] [address], [place] [address] Aug, [facility] [address] [id number] [address] [place] [address], [place] [address] Aug, [facility] [address] [id number] [address] [place] [address] Aug, [facility] [address] [id number] [address] [place] [address] Jul, IMMUNIZATIONS No Known Immunizations SOCIAL HISTORY [...] Suicide attempt by hanging 2015 Hospitalization History [facility] 01/30/2018-02/10/20 08 Hospitalization History [facility] 05/04/18-
--- OUTSIDE RECORDS SUMMARY | 2020-04-04 01:55 | XMS REPORT ---
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 Active 32661443 Problem Generalized anxiety disorder 300.02 A ctive 08267703 Problem Obsessive-compulsive disorders 300.3 Active 129581750 Problem Catatonic schizophrenia, 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 548025435 Problem Disorganized schizophrenia, 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 84228018 Problem Paranoid schizophrenia F20.0 Active 75311371 Problem Borderline personality disorder F60.3 Active 88365288 Problem Paranoid schizophrenia, unspecified condition 295.30 Active 34105177 Problem Schizoaffective disorder, depressive type F25.1 Active 51646365 Problem Bipolar disorder, unspecified 296.80 Active 95157690 Problem Schizoaffective disorder, unspecified F25.9 Active 52215560 Problem Attention deficit hyperactivity disorder (ADHD), inattentive type, 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 and Borderline personality disorder F60.3 [facility] [address] [id number] [address] [place] [phone] Apr, Paranoid schizophrenia F20.0 [facility] [address] [id number] [address] [place] [id number] Apr, Paranoid schizophrenia F20.0 ; Posttraumatic stress disorder F43.10 ; Attention deficit hyperactivity disorder (ADHD), inattentive type, 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 and Borderline personality disorder F60.3 [facility] [address] [id number] [address] [place] [address] Mar, Paranoid schizophrenia F20.0 [facility] [address] [id number] [address] [place] [phone] Mar, Paranoid schizophrenia F20.0 ; Posttraumatic stress disorder F43.10 ; Attention deficit hyperactivity disorder (ADHD), inattentive type, 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 and Borderline personality disorder F60.3 [facility] [address] [id number] [address] [place] [phone] February, Paranoid schizophrenia F20.0 [facility] [address] [id number] [address] [place] [phone] Jan, Paranoid schizophrenia F20.0 ; Posttraumatic stress disorder F43.10 ; Attention deficit hyperactivity disorder (ADHD), inattentive type, 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 [id number] [address] [place] [phone] Aug, [facility] [address] 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 [id number] [address] [place] [phone] Jul, Dry skin dermatitis L85.3 [facility] [address] [facility] [id number] [address] [place] [phone] Jul, [facility] [address] [facility] [id number] [address] [place] [phone] Jul, Paranoid schizophrenia F20.0 [facility] [address] 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 and Borderline personality disorder F60.3 [facility] [address] [id number] [address] [place] [phone] May, [facility] [address] [id number] [address] [place] [id number] May, Paranoid schizophrenia F20.0 [facility] [address] [id number] [address] [place] [phone] May, Paranoid schizophrenia F20.0 ; Posttraumatic stress disorder F43.10 ; Attention deficit hyperactivity disorder (ADHD), inattentive type, 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 and Borderline personality disorder F60.3 [facility] [address] [id number] [address] [place] [phone] Apr, [facility] [address] [id number] [address] [place] [address] Apr, Paranoid schizophrenia F20.0 ; Posttraumatic stress disorder F43.10 ; Attention deficit hyperactivity disorder (ADHD), inattentive type, 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 and Borderline personality disorder F60.3 [facility] [address] [id number] [address] [place] [phone] Apr, [facility] [address] [id number] [address] [place] [phone] Apr, Schizoaffective disorder, de pressive type F25.1 and Borderline personality disorder F60.3 [facility] [address] [id number] [address] [place] [phone] Apr, Paranoid schizophrenia F20.0 ; Posttraumatic stress disorder F43.10 ; Attention deficit hyperactivity disorder (ADHD), inattentive type, 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 and Borderline personality disorder F60.3 [facility] [address] [id number] [address] [place] [phone] Apr, [facility] [address] [id number] [address] [place] [id number] Apr, Paranoid schizophrenia F20.0 ; Posttraumatic stress disorder F43.10 ; Attention deficit hyperactivity disorder (ADHD), inattentive type, 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 and Borderline personality disorder F60.3 [facility] [address] [id number] [address] [place] [phone] Apr, [facility] [address] [id number] [address] [place] [phone] Mar, Paranoid schizophrenia F20.0 [facility] [address] [id number] [address] [place] [phone] Mar, [facility] [address] [id number] [address] [place] [id number] Mar, Paranoid schizophrenia F20.0 ; Posttraumatic stress disorder F43.10 ; Attention deficit hyperactivity disorder (ADHD), inattentive type, 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 and Borderline personality disorder F60.3 [facility] [address] [id number] [address] [place] [phone] February, Paranoid schizophrenia F20.0 [facility] [address] [id number] [address] [place] [phone] February, Paranoid schizophrenia F20.0 ; Posttraumatic stress disorder F43.10 ; Attention deficit hyperactivity disorder (ADHD), inattentive type, 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 and Borderline personality disorder F60.3 [facility] [address] [id number] [address] [place] [phone] February, Paranoid schizophrenia F20.0 ; Posttraumatic stress disorder F43.10 ; Attention deficit hyperactivity disorder (ADHD), inattentive type, 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 and Borderline personality disorder F60.3 [facility] [address] [id number] [address] [place] [phone] February, [facility] [address] [id number] [address] [place] [phone] February, Paranoid schizophrenia F20.0 [facility] [address] [id number] [address] [place] [phone] February, Paranoid schizophrenia F20.0 [facility] [address] [id number] [address] [place] [phone] February, Paranoid schizophrenia F20.0 ; Posttraumatic stress disorder F43.10 ; Attention deficit hyperactivity disorder (ADHD), inattentive type, 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 and Borderline personality disorder F60.3 [facility] [address] [id number] [address] [place] [id number] Jan, Paranoid schizophrenia F20.0 ; Posttraumatic stress disorder F43.10 ; Attention deficit hyperactivity disorder (ADHD), inattentive type, 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 and Borderline personality disorder F60.3 [facility] [address] [id number] [address] [place] [phone] Jan, Paranoid schizophrenia F20.0 [facility] [address] [id number] [address] [place] [phone] Jan, Paranoid schizophrenia F20.0 [facility] [address] [id number] [address] [place] [id number] Jan, Paranoid schizophrenia F20.0 ; Posttraumatic stress disorder F43.10 ; Attention deficit hyperactivity disorder (ADHD), inattentive type, 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 and Borderline personality disorder F60.3 [facility] [address] [id number] [address] [place] [id number] Dec, [facility] [address] [id number] [address] [place] [id number] Nov, Paranoid schizophrenia F20.0 ; Posttraumatic stress disorder F43.10 ; Attention deficit hyperactivity disorder (ADHD), inattentive type, 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 and Borderline personality disorder F60.3 [facility] [address] [id number] [address] [place] [phone] Nov, [facility] [address] [id number] [address] [place] [id number] Oct, Paranoid schizophrenia F20.0 [facility] [address] [id number] [address] [place] [id number] Oct, Paranoid schizophrenia F20.0 ; Posttraumatic stress disorder F43.10 ; Attention deficit hyperactivity disorder (ADHD), inattentive type, 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 [id number] [address] [place] [phone] Oct, [facility] [address] [facility] [id number] [address] [place] [id number] Sep, [facility] [address] 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 [id number] [address] [place] [phone] Aug, [facility] [address] 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 and Borderline personality disorder F60.3 [facility] [address] [id number] [address] [place] [id number] Jul, Paranoid schizophrenia F20.0 [facility] [address] [id number] [address] [place] [id number] Jul, Paranoid schizophrenia F20.0 ; Posttraumatic stress disorder F43.10 ; Attention deficit hyperactivity disorder (ADHD), inattentive type, 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 and Borderline personality disorder F60.3 [facility] [address] [id number] [address] [place] [phone] Jun, Paranoid schizophrenia F20.0 ; Posttraumatic stress disorder F43.10 ; Attention deficit hyperactivity disorder (ADHD), inattentive type, 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 and Borderline personality disorder F60.3 [facility] [address] [id number] [address] [place] [phone] May, Other senior care (current) dr gabriel parra Z79.899 [facility] [address] [id number] [address] [place] [phone] May, [facility] [address] [id number] [address] [place] [phone] May, [facility] [address] [id number] [address] [place] [id number] May, Attention deficit hyperactiv ity disorder (ADHD), inattentive type, mild F90.0 [facility] [address] [id number] [address] [place] [phone] May, [facility] [address] [id number] [address] [place] [phone] May, Attention deficit hyperactiv ity disorder (ADHD), inattentive type, mild F90.0 [facility] [address] [id number] [address] [place] [phone] May, Paranoid schizophrenia F20.0 ; Posttraumatic stress disorder F43.10 ; Attention deficit hyperactivity disorder (ADHD), inattentive type, 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 and Other senior care (current) drug therapy Z79.899 [facility] [address] [id number] [address] [place] [id number] Apr, Paranoid schizophrenia F20.0 [facility] [address] [id number] [address] [place] [phone] Apr, Paranoid schizophrenia F20.0 ; Posttraumatic stress disorder F43.10 and Attention deficit hyperactivity disorder (ADHD), inattentive type, 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 [facility] [address] [id number] [address] [place] [phone] February, [facility] [address] [id number] [address] [place] [phone] February, Paranoid schizophrenia F20.0 ; Posttraumatic stress disorder F43.10 and Attention deficit hyperactivity disorder (ADHD), inattentive type, 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 [facility] [address] [id number] [address] [place] [id number] February, Paranoid schizophrenia F20.0 ; Posttraumatic stress disorder F43.10 and Attention deficit hyperactivity disorder (ADHD), inattentive type, 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 [facility] [address] [id number] [address] [place] [phone] Jan, Paranoid schizophrenia F20.0 ; Posttraumatic stress disorder F43.10 and Attention deficit hyperactivity disorder (ADHD), inattentive type, 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 [facility] [address] [id number] [address] [place] [id number] Dec, Dental examination Z01.20 [facility] [address] [id number] [address] [place] [id number] Nov, Dental examination Z01.20 [facility] [address] [id number] [address] [place] [address] [id number] Nov, Dental examination Z01.20 [facility] [address] [id number] [address] [place] [id number] Nov, 2016 Dental caries K02.9 [facility] [address] [id number] [address] [place] [id number] 13 Nov, 2016 High risk medication use Z79 .899 [facility] [address] [id number] [address] [place] [phone] 01 Nov, 2016 Paranoid schizophrenia F20.0 ; Posttraumatic stress disorder F43.10 ; Attention deficit hyperactivity disorder (ADHD), inattentive type, 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 [facility] [address] [id number] [address] [place] [address] [id number] Jun, Dental examination Z01.20 [facility] [address] [id number] [address] [place] [phone] Jun, [facility] [address] [id number] [address] [place] [phone] May, Paranoid schizophrenia F20.0 [facility] [address] [id number] [address] [place] [phone] May, Paranoid schizophrenia F20.0 ; Posttraumatic stress disorder F43.10 and Attention deficit hyperactivity disorder (ADHD), inattentive type, 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 [facility] [address] [id number] [address] [place] [phone] May, [facility] [address] [id number] [address] [place] [phone] May, Paranoid schizophrenia F20.0 [facility] [address] [id number] [address] [place] [id number] May, [facility] [address] [id number] [address] [place] [phone] May, Paranoid schizophrenia F20.0 [facility] [address] [id number] [address] [place] [phone] May, Schizoaffective disorder, un specified F25.9 [facility] [address] [id number] [address] [place] [id number] May, Schizoaffective disorder, un specified F25.9 [facility] [address] [id number] [address] [place] [phone] May, [facility] [address] [id number] [address] [place] [phone] May, Paranoid schizophrenia F20.0 [facility] [address] [id number] [address] [place] [id number] May, Paranoid schizophrenia F20.0 ; Posttraumatic stress disorder F43.10 and Attention deficit hyperactivity disorder (ADHD), inattentive type, 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 [facility] [address] [id number] [address] [place] [id number] Mar, [facility] [address] [id number] [address] [place] [phone] Mar, Paranoid schizophrenia F20.0 ; Posttraumatic stress disorder F43.10 and Attention deficit hyperactivity disorder (ADHD), inattentive type, 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 [facility] [address] [id number] [address] [place] [phone] Mar, Paranoid schizophrenia F20.0 [facility] [address] [id number] [address] [place] [id number] Mar, Paranoid schizophrenia F20.0 ; Attention deficit hyperactivity disorder (ADHD), inattentive type, 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 and Posttraumatic stress disorder F43.10 [facility] [address] [id number] [address] [place] [phone] Mar, [facility] [address] [id number] [address] [place] [phone] Mar, Paranoid schizophrenia F20.0 ; Posttraumatic stress disorder F43.10 and Attention deficit hyperactivity disorder (ADHD), inattentive type, 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 [facility] [address] [id number] [address] [place] [id number] February, [facility] [address] [id number] [address] [place] [id number] February, [facility] [address] [id number] [address] [place] [id number] February, [facility] [address] [id number] [address] [place] [address] February, [facility] [address] [id number] [address] [place] [id number] Jan, Paranoid schizophrenia F20.0 [facility] [address] [id number] [address] [place] [id number] Jan, Dental examination Z01.20 [facility] [address] [id number] [address] [place] [address] [id number] Jan, Dental caries K02.9 [facility] [address] [id number] [address] [place] [address] [id number] Jan, Dental examination Z01.20 [facility] [address] [id number] [address] [place] [address] [id number] Dec, Encounter for dental examina tion Z01.20 [facility] [address] [id number] [address] [place] [id number] Dec, Paranoid schizophrenia F20.0 [facility] [address] [id number] [address] [place] [address] [id number] Dec, Dental examination Z01.20 [facility] [address] [id number] [address] [place] [id number] Dec, [facility] [address] [id number] [address] [place] [id number] Dec, Paranoid schizophrenia F20.0 ; Posttraumatic stress disorder F43.10 and Attention deficit hyperactivity disorder (ADHD), inattentive type, 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 [facility] [address] [id number] [address] [place] [id number] Nov, Schizoaffective disorder, un specified F25.9 [facility] [address] [id number] [address] [place] [phone] Oct, Paranoid schizophrenia F20.0 [facility] [address] [id number] [address] [place] [id number] Oct, [facility] [address] [id number] [address] [place] [id number] Sep, Paranoid schizophrenia F20.0 ; Posttraumatic stress disorder F43.10 and Attention deficit hyperactivity disorder (ADHD), inattentive type, 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 [facility] [address] [id number] [address] [place] [id number] Sep, [facility] [address] [id number] [address] [place] [address] Sep, Paranoid schizophrenia F20.0 ; Posttraumatic stress disorder F43.10 and Attention deficit hyperactivity disorder (ADHD), inattentive type, 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 [id number] [address] [place] [id number] Jun, [facility] [address] [facility] [id number] [address] [place] [address] Jun, Schizoaffective disorder, ch ronic 295.72 ; Posttraumatic stress disorder 309.81 and Attention deficit disorder of childhood without mention of hyperactivity 314.00 [facility] [address] [id number] [address] [place] [phone] May, [facility] [address] [id number] [address] [place] [id number] May, [facility] [address] [id number] [address] [place] [address] May, Schizoaffective disorder, ch ronic 295.72 ; Posttraumatic stress disorder 309.81 ; Attention deficit disorder of childhood without mention of hyperactivity 314.00 and Bipolar disorder, unspecified 296.80 [facility] [address] [id number] [address] [place] [address] Apr, Schizoaffective disorder, ch ronic 295.72 [facility] [address] [id number] [address] [place] [phone] Apr, [facility] [address] 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 [id number] [address] [place] [phone] Mar, [facility] [address] [id number] [address] [place] [id number] Mar, [facility] [address] [facility] [id number] [address] [place] [address] February, Schizoaffective disorder, ch ronic 295.72 [facility] [address] [id number] [address] [place] [phone] February, [facility] [address] [facility] [id number] [address] [place] [id number] February, Attention 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 ; Posttraumatic stress disorder 309.81 and Schizoaffective disorder, chronic 295.72 [facility] [address] [id number] [address] [place] [id number] Jan, [facility] [address] [id number] [address] [place] [id number] Jan, [facility] [address] [id number] [address] [place] [id number] Jan, [facility] [address] [id number] [address] [place] [phone] Dec, [facility] [address] [id number] [address] [place] [phone] Dec, [facility] [address] [id number] [address] [place] [id number] Dec, [facility] [address] [id number] [address] [place] [phone] Dec, [facility] [address] [id number] [address] [place] [id number] Dec, [facility] [address] [id number] [address] [place] [address] Dec, [facility] [address] [id number] [address] [place] [id number] Dec, [facility] [address] [id number] [address] [place] [id number] Dec, [facility] [address] [id number] [address] [place] [phone] Nov, [facility] [address] [id number] [address] [place] [address] Nov, [facility] [address] [id number] [address] [place] [id number] Nov, [facility] [address] [id number] [address] [place] [address], [place] [address] Nov, 2014 [facility] [address] [id number] [address] [place] [address], [place] [id number] Nov, 2014 [facility] [address] [id number] [address] [place] [address], [place] [address] Nov, 2014 [facility] [address] [id number] [address] [place] [address], [place] [address] Nov, 2014 [facility] [address] [id number] [address] [place] [address], [place] [address] Nov, 2014 [facility] [address] [id number] [address] [place] [address], [place] [address] Nov, [facility] [address] [id number] [address] [place] [address], [place] [address] Nov, [facility] [address] [id number] [address] [place] [phone] Oct, [facility] [address] [id number] [address] [place] [address], [place] [id number] Oct, [facility] [address] [id number] [address] [place] [address] Oct, [facility] [address] [id number] [address] [place] [phone] Oct, [facility] [address] [id number] [address] [place] [phone] Oct, [facility] [address] [id number] [address] [place] [address], [place] [address] Oct, [facility] [address] [id number] [address] [place] [address], [place] [id number] Oct, [facility] [address] [id number] [address] [place] [id number] Sep, [facility] [address] [id number] [address] [place] [address] 17 Sep, 2014 [facility] [address] [id number] [address] [place] [address], [place] [id number] 15 Sep, 2014 [facility] [address] [id number] [address] [place] [address], [place] [id number] 15 Sep, 2014 [facility] [address] [id number] [address] [place] [address], [place] [address] Aug, [facility] [address] [id number] [address] [place] [address], [place] [address] Aug, [facility] [address] [id number] [address] [place] [address], [place] [address] Aug, [facility] [address] [id number] [address] [place] [address], [place] [id number] Aug, [facility] [address] [id number] [address] [place] [address], [place] [address] Aug, [facility] [address] [id number] [address] [place] [address], [place] [address] Aug, [facility] [address] [id number] [address] [place] [address], [place] [id number] 29 Jul, 2014 [facility] [address] [id number] [address] [place] [address], [place] [address] 29 Jul, 2014 [facility] [address] [id number] [address] [place] [address], [place] [id number] 24 Jul, 2014 [facility] [address] [id number] [address] [place] [address], [place] [address] 24 Jul, 2014 [facility] [address] [id number] [address] [place] [address], [place] [id number] 15 Jul, 2014 [facility] [address] [id number] [address] [place] [address], [place] [id number] 15 Jul, 2014 [facility] [address] [id number] [address] [place] [address], [place] [id number] 27 Jun, 2014 [facility] [address] [id number] [facility] [place] [address] 27 Jun, 2013 [facility] [address] [id number] [facility] [place] [address] 26 Jun, 2013 [facility] [address] [id number] [facility] [place] [address] 26 Jun, 2013 [facility] [address] [id number] [facility] [place] [address] 26 Jun, 2013 [facility] [address] [id number] [facility] [place] [address] 26 Jun, 2013 [facility] [address] [id number] [address] [place] [address], [place] [id number] 16 Jun, 2013 [facility] [address] [id number] [address] [place] [address], [place] [id number] 16 Jun, 2013 [facility] [address] [id number] [address] [place] [address], [place] [id number] 16 Jun, 2013 [facility] [address] [id number] [address] [place] [address], [place] [id number] 16 Jun, 2013 [facility] [address] [id number] [address] [place] [address], [place] [id number] 04 Jun, 2013 [facility] [address] [id number] [address] [place] [address], [place] [address] May, [facility] [address] [id number] [address] [place] [address], [place] [address] May, [facility] [address] [id number] [address] [place] [address], [place] [id number] May, [facility] [address] [id number] [address] [place] [address], [place] [address] May, [facility] [address] [id number] [address] [place] [address], [place] [address] May, [facility] [address] [id number] [address] [place] [address], [place] [address] May, [facility] [address] [id number] [facility] [place] [address] May, [facility] [address] [id number] [facility] [place] [address] May, [facility] [address] [id number] [facility] [place] [address] May, [facility] [address] [id number] [address] [place] [address], [place] [address] May, [facility] [address] [id number] [facility] [place] [address] Apr, [facility] [address] [id number] [address] [place] [address], [place] [address] Apr, [facility] [address] [id number] [address] [place] [address], [place] [address] Apr, [facility] [address] [id number] [address] [place] [address], [place] [address] Apr, [facility] [address] [id number] [address] [place] [address], [place] [address] Apr, [facility] [address] [id number] [address] [place] [address], [place] [address] Apr, [facility] [address] [id number] [address] [place] [address], [place] [address] Apr, [facility] [address] [id number] [address] [place] [address], [place] [address] Apr, [facility] [address] [id number] [address] [place] [address], [place] [address] Apr, [facility] [address] [id number] [address] [place] [address], [place] [address] Apr, [facility] [address] [id number] [address] [place] [address], [place] [address] Mar, [facility] [address] [id number] [facility] [place] [address] 26 Mar, 2014 [facility] [address] [id number] [address] [place] [address], [place] [id number] 25 Mar, 2014 [facility] [address] [id number] [facility] [place] [address] 24 Mar, 2014 [facility] [address] [id number] [address] [place] [address], [place] [address] 20 Mar, 2014 [facility] [address] [id number] [address] [place] [address], [place] [id number] 18 Mar, 2014 [facility] [address] [id number] [address] [place] [address], [place] [address] 18 Mar, 2014 [facility] [address] [id number] [address] [place] [address], [place] [id number] 16 Mar, 2014 [facility] [address] [id number] [address] [place] [address], [place] [id number] 16 Mar, 2014 [facility] [address] [id number] [address] [place] [address], [place] [address] 13 Mar, 2014 [facility] [address] [id number] [address] [place] [address], [place] [id number] 13 Mar, 2014 [facility] [address] [id number] [address] [place] [address], [place] [id number] 11 Mar, 2014 [facility] [address] [id number] [address] [place] [address], [place] [address] Mar, [facility] [address] [id number] [address] [place] [address], [place] [id number] 10 Mar, 2014 [facility] [address] [id number] [address] [place] [address], [place] [id number] 09 Mar, 2014 [facility] [address] [id number] [address] [place] [address], [place] [id number] 09 Mar, 2014 [facility] [address] [id number] [address] [place] [address], [place] [address] 09 Mar, 2014 [facility] [address] [id number] [address] [place] [address], [place] [address] Mar, [facility] [address] [id number] [address] [place] [address], [place] [address] Mar, [facility] [address] [id number] [address] [place] [address], [place] [address] Mar, [facility] [address] [id number] [address] [place] [address], [place] [address] February, [facility] [address] [id number] [address] [place] [address], [place] [address] February, [facility] [address] [id number] [address] [place] [address], [place] [address] February, [facility] [address] [id number] [address] [place] [address], [place] [address] February, [facility] [address] [id number] [address] [place] [address], [place] [id number] February, [facility] [address] [id number] [address] [place] [address], [place] [address] February, [facility] [address] [id number] [address] [place] [address], [place] [address] February, [facility] [address] [id number] [address] [place] [address], [place] [id number] February, [facility] [address] [id number] [address] [place] [address], [place] [address] February, [facility] [address] [id number] [address] [place] [address], [place] [id number] February, [facility] [address] [id number] [address] [place] [address], [place] [address] February, [facility] [address] [id number] [address] [place] [address], [place] [address] February, [facility] [address] [id number] [address] [place] [address], [place] [id number] February, [facility] [address] [id number] [address] [place] [address], [place] [address] February, [facility] [address] [id number] [address] [place] [address], [place] [address] February, [facility] [address] [id number] [address] [place] [address], [place] [address] February, [facility] [address] [id number] [address] [place] [address], [place] [id number] February, [facility] [address] [id number] [address] [place] [address], [place] [address] February, [facility] [address] [id number] [address] [place] [address], [place] [id number] February, [facility] [address] [id number] [address] [place] [address], [place] [address] February, [facility] [address] [id number] [address] [place] [address], [place] [address] February, [facility] [address] [id number] [address] [place] [address], [place] [id number] Jan, [facility] [address] [id number] [address] [place] [address], [place] [id number] Jan, [facility] [address] [id number] [address] [place] [address], [place] [id number] Jan, [facility] [address] [id number] [address] [place] [address], [place] [id number] Jan, [facility] [address] [id number] [address] [place] [address], [place] [id number] Jan, [facility] [address] [id number] [address] [place] [address], [place] [id number] Jan, [facility] [address] [id number] [address] [place] [address], [place] [id number] Jan, [facility] [address] [id number] [facility] [place] [id number] 10 Jan, 2014 [facility] [address] [id number] [address] [place] [address], [place] [id number] 21 Dec, 2013 [facility] [address] [id number] [facility] [place] [id number] 20 Dec, 2013 [facility] [address] [id number] [address] [place] [address], [place] [id number] 20 Dec, 2013 [facility] [address] [id number] [address] [place] [address], [place] [id number] 19 Dec, 2013 [facility] [address] [id number] [address] [place] [address], [place] [id number] 19 Dec, 2013 [facility] [address] [id number] [address] [place] [address], [place] [id number] 15 Dec, 2013 [facility] [address] [id number] [address] [place] [address], [place] [id number] 15 Dec, 2013 [facility] [address] [id number] [address] [place] [address], [place] [id number] 11 Dec, 2013 [facility] [address] [id number] [address] [place] [address], [place] [id number] 10 Dec, 2013 [facility] [address] [id number] [address] [place] [address], [place] [id number] 10 Dec, 2013 [facility] [address] [id number] [address] [place] [address], [place] [id number] 18 Nov, 2013 [facility] [address] [id number] [address] [place] [address], [place] [id number] 17 Nov, 2013 [facility] [address] [id number] [address] [place] [address], [place] [id number] 17 Nov, 2013 [facility] [address] [id number] [address] [place] [address], [place] [id number] 05 Nov, 2013 [facility] [address] [id number] [address] [place] [address], [place] [id number] Nov, [facility] [address] [id number] [address] [place] [address], [place] [id number] Oct, [facility] [address] [id number] [address] [place] [address], [place] [id number] Oct, [facility] [address] [id number] [address] [place] [address], [place] [id number] Oct, [facility] [address] [id number] 20 [place] [address], [place] [address] Sep, [facility] [address] [id number] [address] [place] [address], [place] [address] Sep, [facility] [address] [id number] [address] [place] [address], [place] [address] Sep, [facility] [address] [id number] [address] [place] [address], [place] [address] Sep, [facility] [address] [id number] [address] [place] [address], [place] [address] Aug, [facility] [address] [id number] [address] [place] [address], [place] [address] Aug, [facility] [address] [id number] [address] [place] [id number] Jul, [facility] [address] [id number] [address] [place] [id number] Jul, [facility] [address] [id number] [address] [place] [id number] Jul, [facility] [address] [id number] [address] [place] [address], [place] [address] Jul, [facility] [address] [id number] [address] [place] [id number] Jul, [facility] [address] [id number] [address] [place] [id number] Jun, [facility] [address] [id number] [address] [place] [address], [place] [address] 25 Jun, 2013 [facility] [address] [id number] [address] [place] [address], [place] [address] 19 Jun, 2013 [facility] [address] [id number] [address] [place] [address], [place] [address] 18 Jun, 2013 [facility] [address] [id number] [address] [place] [address], [place] [id number] 16 Jun, 2013 [facility] [address] [id number] [address] [place] [address], [place] [address] 12 Jun, 2013 [facility] [address] [id number] [address] [place] [address], [place] [address] 11 Jun, 2013 [facility] [address] [id number] [address] [place] [address], [place] [id number] 30 May, 2013 [facility] [address] [id number] [address] [place] [address], [place] [address] May, [facility] [address] [id number] [address] [place] [address], [place] [address] Apr, [facility] [address] [id number] [address] [place] [address], [place] [address] Apr, [facility] [address] [id number] [address] [place] [address], [place] [address] Apr, [facility] [address] [id number] [address] [place] [address], [place] [address] Mar, [facility] [address] [id number] [address] [place] [address], [place] [address] Mar, [facility] [address] [id number] [address] [place] [address], [place] [address] February, [facility] [address] [id number] [address] [place] [address], [place] [address] February, [facility] [address] [id number] [address] [place] [address], [place] [address] February, [facility] [address] [id number] [address] [place] [address], [place] [address] February, [facility] [address] [id number] [address] [place] [address], [place] [address] Jan, [facility] [address] [id number] [address] [place] [address], [place] [address] Jan, [facility] [address] [id number] [address] [place] [address], [place] [address] Jan, [facility] [address] [id number] [address] [place] [address], [place] [address] Dec, [facility] [address] [id number] [address] [place] [address], [place] [address] Dec, [facility] [address] [id number] [address] [place] [address], [place] [address] Dec, [facility] [address] [id number] [address] [place] [address], [place] [address] Dec, [facility] [address] [id number] [address] [place] [address], [place] [address] Nov, [facility] [address] [id number] [address] [place] [address], [place] [address] Nov, [facility] [address] [id number] [address] [place] [address], [place] [address] Oct, [facility] [address] [id number] [address] [place] [address], [place] [address] Oct, [facility] [address] [id number] [address] [place] [address], [place] [address] Oct, [facility] [address] [id number] [address] [place] [address], [place] [address] Oct, [facility] [address] [id number] [address] [place] [address], [place] [address] Aug, [facility] [address] [id number] [address] [place] [address], [place] [address] Aug, [facility] [address] [id number] [address] [place] [address], [place] [address] Jun, [facility] [address] [id number] [address] [place] [address], [place] [address] May, [facility] [address] [id number] [address] [place] [address], [place] [address] May, [facility] [address] [id number] [address] [place] [address], [place] [address] Apr, [facility] [address] [id number] [address] [place] [address], [place] [address] Apr, [facility] [address] [id number] [address] [place] [address], [place] [address] Apr, [facility] [address] [id number] [address] [place] [address], [place] [address] Mar, [facility] [address] [id number] [address] [place] [address], [place] [address] Mar, [facility] [address] [id number] [address] [place] [address], [place] [address] Mar, [facility] [address] [id number] [address] [place] [address], [place] [address] Mar, [facility] [address] [id number] [address] [place] [address], [place] [address] Mar, [facility] [address] [id number] [address] [place] [address], [place] [address] February, [facility] [address] [id number] [address] [place] [address], [place] [address] February, [facility] [address] [id number] [address] [place] [address], [place] [address] February, [facility] [address] [id number] [address] [place] [address], [place] [address] February, [facility] [address] [id number] [address] [place] [address], [place] [address] 16 Feb, 2012 [facility] [address] [id number] [address] [place] [address], [place] [address] February, [facility] [address] [id number] [address] [place] [address], [place] [address] February, [facility] [address] [id number] [address] [place] [address], [place] [address] 25 Jan, 2012 [facility] [address] [id number] [address] [place] [address], [place] [address] 18 Jan, 2012 [facility] [address] [id number] [address] [place] [address], [place] [address] 17 Jan, 2012 [facility] [address] [id number] [address] [place] [address], [place] [id number] 13 Jan, 2012 [facility] [address] [id number] [address] [place] [address], [place] [address] 10 Jan, 2012 [facility] [address] [id number] [address] [place] [address], [place] [address] 04 Jan, 2012 [facility] [address] [id number] [address] [place] [address], [place] [address] 30 Dec, 2011 [facility] [address] [id number] [address] [place] [address], [place] [address] 24 Dec, 2011 [facility] [address] [id number] [address] [place] [address], [place] [address] 20 Dec, 2011 [facility] [address] [id number] [address] [place] [address], [place] [address] 13 Dec, 2011 [facility] [address] [id number] [address] [place] [address], [place] [address] 06 Dec, 2011 [facility] [address] [id number] [address] [place] [address], [place] [id number] 28 Nov, 2011 [facility] [address] [id number] [address] [place] [address], [place] [address] Nov, [facility] [address] [id number] [facility] [place] [address] Nov, [facility] [address] [id number] [address] [place] [address], [place] [address] Nov, [facility] [address] [id number] [address] [place] [address], [place] [address] Nov, [facility] [address] [id number] [address] [place] [address], [place] [address] Nov, [facility] [address] [id number] [address] [place] [address], [place] [address] Oct, [facility] [address] [id number] [address] [place] [address], [place] [address] Oct, [facility] [address] [id number] [address] [place] [address], [place] [address] Oct, [facility] [address] [id number] [address] [place] [address], [place] [address] Oct, [facility] [address] [id number] [address] [place] [address], [place] [address] Oct, [facility] [address] [id number] [address] [place] [address], [place] [address] Sep, [facility] [address] [id number] [address] [place] [address], [place] [address] Sep, [facility] [address] [id number] [address] [place] [address], [place] [address] Sep, [facility] [address] [id number] [address] [place] [address], [place] [address] Sep, [facility] [address] [id number] [address] [place] [address], [place] [address] Sep, [facility] [address] [id number] [address] [place] [address], [place] [address] Sep, [facility] [address] [id number] [address] [place] [address], [place] [address] Sep, [facility] [address] [id number] [address] [place] [address], [place] [address] Sep, [facility] [address] [id number] [address] [place] [address], [place] [address] Sep, [facility] [address] [id number] [address] [place] [address], [place] [address] Aug, [facility] [address] [id number] [address] [place] [address], [place] [address] Aug, [facility] [address] [id number] [address] [place] [address], [place] [address] Aug, [facility] [address] [id number] [address] [place] [address], [place] [address] Aug, [facility] [address] [id number] [address] [place] [address], [place] [address] Aug, [facility] [address] [id number] [address] [place] [address], [place] [address] Aug, [facility] [address] [id number] [address] [place] [address], [place] [address] Aug, [facility] [address] [id number] [address] [place] [address], [place] [address] Aug, [facility] [address] [id number] [address] [place] [address], [place] [address] Aug, [facility] [address] [id number] [address] [place] [address], [place] [address] Aug, [facility] [address] [id number] [address] [place] [address], [place] [address] Aug, [facility] [address] [id number] [address] [place] [address], [place] [address] Aug, [facility] [address] [id number] [address] [place] [address], [place] [address] Jul, [facility] [place] [address] [id number] [address] [place] [id number] Jul, [facility] [place] [address] [id number] [address] [place] [id number] Jul, [facility] [place] [address] [id number] [address] [place] [id number] Jul, [facility] [place] [address] [id number] [address] [place] [address] Jul, [facility] [place] [address] [id number] [address] [place] [id number] Jul, [facility] [place] [address] [id number] [address] [place] [id number] Jul, [facility] [place] [address] [id number] [address] [place] [id number] Jul, [facility] [place] [address] [id number] [address] [place] [address] Jul, [facility] [place] [address] [id number] [address] [place] [id number] Jul, [facility] [place] [address] [id number] [address] [place] [address] Nov, [facility] [address] [id number] [address] [place] [id number] Aug, [facility] [address] [id number] [address] [place] [id number] Aug, [facility] [address] [id number] [address] [place] [address] Aug, [facility] [address] [id number] [address] [place] [address] Aug, [facility] [address] [id number] [address] [place] [address] Jul, IMMUNIZATIONS No Known Immunizations SOCIAL HISTORY [...] Suicide attempt by hanging 2015 Hospitalization History [facility] 01/30/2018-02/10/20 08 [facility]ization History [email or web address] 05/04/18-
--- OUTSIDE RECORDS SUMMARY | 2020-04-04 01:56 | XMS REPORT ---
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 Active 20507714 Problem Generalized anxiety disorder 300.02 A ctive 20533168 Problem Obsessive-compulsive disorders 300.3 Active 219943840 Problem Catatonic schizophrenia, 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 665986136 Problem Disorganized schizophrenia, 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 68436990 Problem Paranoid schizophrenia F20.0 Active 75870188 Problem Borderline personality disorder F60.3 Active 28424828 Problem Paranoid schizophrenia, unspecified condition 295.30 Active 83266826 Problem Schizoaffective disorder, depressive type F25.1 Active 82966059 Problem Bipolar disorder, unspecified 296.80 Active 44390723 Problem Schizoaffective disorder, unspecified F25.9 Active 76191984 Problem Attention deficit hyperactivity disorder (ADHD), inattentive type, 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 67859357 Problem Posttraumatic stress disorder F43.10 Active 73224584 Problem High risk medication use Z79.899 Activ e [id number] ALLERGIES No Information ENCOUNTERS Encounter Location Date Diagnosis [facility] [address] [facility] [id number] [address] [place] [phone] Jun, Paranoid schizophrenia F20.0 ; Other alf (current) drug therapy Z79.899 ; Attention deficit hyperactivity disorder (ADHD), inattentive type, 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 ; Posttraumatic stress disorder F43.10 and Borderline personality disorder F60.3 [facility] [address] [facility] [id number] [address] [place] [id number] 03 Jun, 2019 Paranoid schizophrenia F20.0 ; Attention deficit hyperactivity disorder (ADHD), inattentive type, 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 ; Posttraumatic stress disorder F43.10 ; Borderline personality disorder F60.3 and 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 Z79.899 [facility] [address] [id number] [address] [place] [phone] Apr, Paranoid schizophrenia F20.0 ; Posttraumatic stress disorder F43.10 ; Attention deficit hyperactivity disorder (ADHD), inattentive type, 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 and Borderline personality disorder F60.3 [facility] [address] [id number] [address] [place] [id number] Apr, Paranoid schizophrenia F20.0 [facility] [address] [id number] [address] [place] [phone] Apr, Paranoid schizophrenia F20.0 ; Posttraumatic stress disorder F43.10 ; Attention deficit hyperactivity disorder (ADHD), inattentive type, 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 and Borderline personality disorder F60.3 [facility] [address] [id number] [address] [place] [id number] Mar, Paranoid schizophrenia F20.0 [facility] [address] [id number] [address] [place] [phone] Mar, Paranoid schizophrenia F20.0 ; Posttraumatic stress disorder F43.10 ; Attention deficit hyperactivity disorder (ADHD), inattentive type, 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 and Borderline personality disorder F60.3 [facility] [address] [id number] [address] [place] [id number] February, Paranoid schizophrenia F20.0 [facility] [address] [id number] [address] [place] [phone] Jan, Paranoid schizophrenia F20.0 ; Posttraumatic stress disorder F43.10 ; Attention deficit hyperactivity disorder (ADHD), inattentive type, 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 and Borderline personality disorder F60.3 [facility] [address] [id number] [address] [place] [phone] Dec, Paranoid schizophrenia F20.0 ; Posttraumatic stress disorder F43.10 ; Attention deficit hyperactivity disorder (ADHD), inattentive type, 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 and Borderline personality disorder F60.3 [facility] [address] [facility] [id number] [address] [place] [id number] Dec, Paranoid schizophrenia F20.0 ; Posttraumatic stress disorder F43.10 ; Attention deficit hyperactivity disorder (ADHD), inattentive type, 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 and Borderline personality disorder F60.3 [facility] [address] [facility] [id number] [address] [place] [phone] Oct, Paranoid schizophrenia F20.0 ; Posttraumatic stress disorder F43.10 ; Attention deficit hyperactivity disorder (ADHD), inattentive type, 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 and Borderline personality disorder F60.3 [facility] [address] [facility] [id number] [address] [place] [phone] Oct, Paranoid schizophrenia F20.0 ; Posttraumatic stress disorder F43.10 ; Attention deficit hyperactivity disorder (ADHD), inattentive type, 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 [address] [facility] [id number] [address] [place] [phone] Jul, Dry skin dermatitis L85.3 [facility] [address] [facility] [id number] [address] [place] [phone] Jul, [facility] [address] [facility] [id number] [address] [place] [phone] Jul, Paranoid schizophrenia F20.0 [facility] [address] [facility] [id number] [address] [place] [phone] May, Paranoid schizophrenia F20.0 ; Posttraumatic stress disorder F43.10 ; Attention deficit hyperactivity disorder (ADHD), inattentive type, 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 and Borderline personality disorder F60.3 [facility] [address] [id number] [address] [place] [phone] May, [facility] [address] [id number] [address] [place] [phone] May, Paranoid schizophrenia F20.0 [facility] [address] [id number] [address] [place] [phone] May, Paranoid schizophrenia F20.0 ; Posttraumatic stress disorder F43.10 ; Attention deficit hyperactivity disorder (ADHD), inattentive type, 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 and Borderline personality disorder F60.3 [facility] [address] [id number] [address] [place] [phone] Apr, [facility] [address] [id number] [address] [place] [phone] Apr, Paranoid schizophrenia F20.0 ; Posttraumatic stress disorder F43.10 ; Attention deficit hyperactivity disorder (ADHD), inattentive type, 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 and Borderline personality disorder F60.3 [facility] [address] [id number] [address] [place] [id number] Apr, [facility] [address] [id number] [address] [place] [phone] Apr, Schizoaffective disorder, de pressive type F25.1 and Borderline personality disorder F60.3 [facility] [address] [id number] [address] [place] [phone] Apr, Paranoid schizophrenia F20.0 ; Posttraumatic stress disorder F43.10 ; Attention deficit hyperactivity disorder (ADHD), inattentive type, 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 and Borderline personality disorder F60.3 [facility] [address] [id number] [address] [place] [phone] Apr, [facility] [address] [id number] [address] [place] [phone] Apr, Paranoid schizophrenia F20.0 ; Posttraumatic stress disorder F43.10 ; Attention deficit hyperactivity disorder (ADHD), inattentive type, 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 and Borderline personality disorder F60.3 [facility] [address] [id number] [address] [place] [phone] Apr, [facility] [address] [id number] [address] [place] [id number] Mar, Paranoid schizophrenia F20.0 [facility] [address] [id number] [address] [place] [phone] Mar, [facility] [address] [id number] [address] [place] [id number] Mar, Paranoid schizophrenia F20.0 ; Posttraumatic stress disorder F43.10 ; Attention deficit hyperactivity disorder (ADHD), inattentive type, 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 and Borderline personality disorder F60.3 [facility] [address] [id number] [address] [place] [phone] February, Paranoid schizophrenia F20.0 [facility] [address] [id number] [address] [place] [id number] February, Paranoid schizophrenia F20.0 ; Posttraumatic stress disorder F43.10 ; Attention deficit hyperactivity disorder (ADHD), inattentive type, 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 and Borderline personality disorder F60.3 [facility] [address] [id number] [address] [place] [phone] February, Paranoid schizophrenia F20.0 ; Posttraumatic stress disorder F43.10 ; Attention deficit hyperactivity disorder (ADHD), inattentive type, 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 and Borderline personality disorder F60.3 [facility] [address] [id number] [address] [place] [phone] February, [facility] [address] [id number] [address] [place] [phone] February, Paranoid schizophrenia F20.0 [facility] [address] [id number] [address] [place] [phone] February, Paranoid schizophrenia F20.0 [facility] [address] [id number] [address] [place] [phone] February, Paranoid schizophrenia F20.0 ; Posttraumatic stress disorder F43.10 ; Attention deficit hyperactivity disorder (ADHD), inattentive type, 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 and Borderline personality disorder F60.3 [facility] [address] [id number] [address] [place] [phone] Jan, Paranoid schizophrenia F20.0 ; Posttraumatic stress disorder F43.10 ; Attention deficit hyperactivity disorder (ADHD), inattentive type, 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 and Borderline personality disorder F60.3 [facility] [address] [id number] [address] [place] [phone] Jan, Paranoid schizophrenia F20.0 [facility] [address] [id number] [address] [place] [id number] Jan, Paranoid schizophrenia F20.0 [facility] [address] [id number] [address] [place] [phone] Jan, Paranoid schizophrenia F20.0 ; Posttraumatic stress disorder F43.10 ; Attention deficit hyperactivity disorder (ADHD), inattentive type, 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 and Borderline personality disorder F60.3 [facility] [address] [id number] [address] [place] [id number] Dec, [facility] [address] [id number] [address] [place] [phone] Nov, Paranoid schizophrenia F20.0 ; Posttraumatic stress disorder F43.10 ; Attention deficit hyperactivity disorder (ADHD), inattentive type, 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 and Borderline personality disorder F60.3 [facility] [address] [id number] [address] [place] [phone] Nov, [facility] [address] [id number] [address] [place] [phone] Oct, Paranoid schizophrenia F20.0 [facility] [address] [id number] [address] [place] [phone] Oct, Paranoid schizophrenia F20.0 ; Posttraumatic stress disorder F43.10 ; Attention deficit hyperactivity disorder (ADHD), inattentive type, 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 ; Borderline personality disorder F60.3 and Other alf (current) drug therapy Z79.899 [facility] [address] [id number] [address] [place] [phone] Oct, [facility] [address] [facility] [id number] [address] [place] [phone] Oct, [facility] [address] [facility] [id number] [address] [place] [phone] Sep, [facility] [address] [facility] [id number] [address] [place] [phone] Sep, Paranoid schizophrenia F20.0 ; Posttraumatic stress disorder F43.10 ; Attention deficit hyperactivity disorder (ADHD), inattentive type, 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 and Borderline personality disorder F60.3 [facility] [address] [facility] [id number] [address] [place] [phone] Sep, Paranoid schizophrenia F20.0 [facility] [address] [id number] [address] [place] [phone] Aug, Paranoid schizophrenia F20.0 ; Posttraumatic stress disorder F43.10 ; Attention deficit hyperactivity disorder (ADHD), inattentive type, 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 and Borderline personality disorder F60.3 [facility] [address] [id number] [address] [place] [phone] Aug, Paranoid schizophrenia F20.0 ; Posttraumatic stress disorder F43.10 ; Attention deficit hyperactivity disorder (ADHD), inattentive type, 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 and Borderline personality disorder F60.3 [facility] [address] [facility] [id number] [address] [place] [id number] Aug, [facility] [address] [facility] [id number] [address] [place] [id number] Jul, Paranoid schizophrenia F20.0 ; Posttraumatic stress disorder F43.10 ; Attention deficit hyperactivity disorder (ADHD), inattentive type, 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 and Borderline personality disorder F60.3 [facility] [address] [id number] [address] [place] [phone] Jul, Paranoid schizophrenia F20.0 [facility] [address] [id number] [address] [place] [phone] Jul, Paranoid schizophrenia F20.0 ; Posttraumatic stress disorder F43.10 ; Attention deficit hyperactivity disorder (ADHD), inattentive type, 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 and Borderline personality disorder F60.3 [facility] [address] [id number] [address] [place] [id number] Jun, Paranoid schizophrenia F20.0 ; Posttraumatic stress disorder F43.10 ; Attention deficit hyperactivity disorder (ADHD), inattentive type, 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 and Borderline personality disorder F60.3 [facility] [address] [id number] [address] [place] [id number] May, Other alf (current) dr gabriel parra Z79.899 [facility] [address] [id number] [address] [place] [id number] May, [facility] [address] [id number] [address] [place] [id number] May, [facility] [address] [id number] [address] [place] [phone] May, Attention deficit hyperactiv ity disorder (ADHD), inattentive type, mild F90.0 [facility] [address] [id number] [address] [place] [phone] May, [facility] [address] [id number] [address] [place] [phone] May, Attention deficit hyperactiv ity disorder (ADHD), inattentive type, mild F90.0 [facility] [address] [id number] [address] [place] [phone] May, Paranoid schizophrenia F20.0 ; Posttraumatic stress disorder F43.10 ; Attention deficit hyperactivity disorder (ADHD), inattentive type, 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 and Other alf (current) drug therapy Z79.899 [facility] [address] [id number] [address] [place] [phone] Apr, Paranoid schizophrenia F20.0 [facility] [address] [id number] [address] [place] [id number] Apr, Paranoid schizophrenia F20.0 ; Posttraumatic stress disorder F43.10 and Attention deficit hyperactivity disorder (ADHD), inattentive type, 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 [facility] [address] [id number] [address] [place] [phone] February, [facility] [address] [id number] [address] [place] [phone] February, Paranoid schizophrenia F20.0 ; Posttraumatic stress disorder F43.10 and Attention deficit hyperactivity disorder (ADHD), inattentive type, 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 [facility] [address] [id number] [address] [place] [phone] February, Paranoid schizophrenia F20.0 ; Posttraumatic stress disorder F43.10 and Attention deficit hyperactivity disorder (ADHD), inattentive type, 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 [facility] [address] [id number] [address] [place] [phone] Jan, Paranoid schizophrenia F20.0 ; Posttraumatic stress disorder F43.10 and Attention deficit hyperactivity disorder (ADHD), inattentive type, 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 [facility] [address] [id number] [address] [place] [id number] Dec, Dental examination Z01.20 [facility] [address] [id number] [address] [place] [id number] Nov, Dental examination Z01.20 [facility] [address] [id number] [address] [place] [id number] Nov, Dental examination Z01.20 [facility] [address] [id number] [address] [place] [address] [id number] 14 Nov, 2016 Dental caries K02.9 [facility] [address] [id number] [address] [place] [id number] 13 Nov, 2016 High risk medication use Z79 .899 [facility] [address] [id number] [address] [place] [id number] 01 Nov, 2016 Paranoid schizophrenia F20.0 ; Posttraumatic stress disorder F43.10 ; Attention deficit hyperactivity disorder (ADHD), inattentive type, 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 and Borderline personality disorder in adult F60.3 [facility] [address] [id number] [address] [place] [id number] Oct, Dental caries K02.9 [facility] [address] [facility] [id number] [address] [place] [phone] 05 Sep, 2016 Paranoid schizophrenia F20.0 ; Posttraumatic stress disorder F43.10 and Attention deficit hyperactivity disorder (ADHD), inattentive type, 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 [facility] [address] [facility] [id number] [address] [place] [phone] Aug, Paranoid schizophrenia F20.0 ; Posttraumatic stress disorder F43.10 and Attention deficit hyperactivity disorder (ADHD), inattentive type, 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 [facility] [address] [facility] [id number] [address] [place] [phone] Aug, Strep throat J02.0 and Cough R05 [facility] [address] [id number] [address] [place] [phone] Aug, [facility] [address] [id number] [address] [place] [phone] Jul, Paranoid schizophrenia F20.0 ; Posttraumatic stress disorder F43.10 and Attention deficit hyperactivity disorder (ADHD), inattentive type, 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 [facility] [address] [id number] [address] [place] [phone] Jul, [facility] [address] [facility] [id number] [address] [place] [id number] Jun, Paranoid schizophrenia F20.0 ; Posttraumatic stress disorder F43.10 and Attention deficit hyperactivity disorder (ADHD), inattentive type, 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 [facility] [address] [id number] [address] [place] [address] [id number] Jun, Dental examination Z01.20 [facility] [address] [id number] [address] [place] [id number] Jun, [facility] [address] [id number] [address] [place] [phone] May, Paranoid schizophrenia F20.0 [facility] [address] [id number] [address] [place] [phone] May, Paranoid schizophrenia F20.0 ; Posttraumatic stress disorder F43.10 and Attention deficit hyperactivity disorder (ADHD), inattentive type, 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 [facility] [address] [id number] [address] [place] [phone] May, [facility] [address] [id number] [address] [place] [phone] May, Paranoid schizophrenia F20.0 [facility] [address] [id number] [address] [place] [phone] May, [facility] [address] [id number] [address] [place] [phone] May, Paranoid schizophrenia F20.0 [facility] [address] [id number] [address] [place] [id number] May, Schizoaffective disorder, un specified F25.9 [facility] [address] [id number] [address] [place] [phone] May, Schizoaffective disorder, un specified F25.9 [facility] [address] [id number] [address] [place] [phone] May, [facility] [address] [id number] [address] [place] [phone] May, Paranoid schizophrenia F20.0 [facility] [address] [id number] [address] [place] [id number] May, Paranoid schizophrenia F20.0 ; Posttraumatic stress disorder F43.10 and Attention deficit hyperactivity disorder (ADHD), inattentive type, 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 [facility] [address] [id number] [address] [place] [phone] Mar, [facility] [address] [id number] [address] [place] [phone] Mar, Paranoid schizophrenia F20.0 ; Posttraumatic stress disorder F43.10 and Attention deficit hyperactivity disorder (ADHD), inattentive type, 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 [facility] [address] [id number] [address] [place] [phone] Mar, Paranoid schizophrenia F20.0 [facility] [address] [id number] [address] [place] [phone] Mar, Paranoid schizophrenia F20.0 ; Attention deficit hyperactivity disorder (ADHD), inattentive type, 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 and Posttraumatic stress disorder F43.10 [facility] [address] [id number] [address] [place] [phone] Mar, [facility] [address] [id number] [address] [place] [phone] Mar, Paranoid schizophrenia F20.0 ; Posttraumatic stress disorder F43.10 and Attention deficit hyperactivity disorder (ADHD), inattentive type, 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 [facility] [address] [id number] [address] [place] [phone] February, [facility] [address] [id number] [address] [place] [phone] February, [facility] [address] [id number] [address] [place] [phone] February, [facility] [address] [id number] [address] [place] [address] February, [facility] [address] [id number] [address] [place] [address] Jan, Paranoid schizophrenia F20.0 [facility] [address] [id number] [address] [place] [address] [id number] Jan, Dental examination Z01.20 [facility] [address] [id number] [address] [place] [address] [id number] Jan, Dental caries K02.9 [facility] [address] [id number] [address] [place] [address] [id number] Jan, Dental examination Z01.20 [facility] [address] [id number] [address] [place] [address] [id number] Dec, Encounter for dental examina tion Z01.20 [facility] [address] [id number] [address] [place] [id number] Dec, Paranoid schizophrenia F20.0 [facility] [address] [id number] [address] [place] [address] [id number] Dec, Dental examination Z01.20 [facility] [address] [id number] [address] [place] [address] Dec, [facility] [address] [id number] [address] [place] [address] Dec, Paranoid schizophrenia F20.0 ; Posttraumatic stress disorder F43.10 and Attention deficit hyperactivity disorder (ADHD), inattentive type, 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 [facility] [address] [id number] [address] [place] [address] Nov, Schizoaffective disorder, un specified F25.9 [facility] [address] [id number] [address] [place] [id number] Oct, Paranoid schizophrenia F20.0 [facility] [address] [id number] [address] [place] [address] Oct, [facility] [address] [id number] [address] [place] [address] Sep, Paranoid schizophrenia F20.0 ; Posttraumatic stress disorder F43.10 and Attention deficit hyperactivity disorder (ADHD), inattentive type, 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 [facility] [address] [id number] [address] [place] [phone] Sep, [facility] [address] [id number] [address] [place] [address] Sep, Paranoid schizophrenia F20.0 ; Posttraumatic stress disorder F43.10 and Attention deficit hyperactivity disorder (ADHD), inattentive type, 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 [facility] [address] [id number] [address] [place] [address] Aug, Paranoid schizophrenia F20.0 [facility] [address] [id number] [address] [place] [address] Aug, [facility] [address] [facility] [id number] [address] [place] [address] Aug, Posttraumatic stress disorde r F43.10 ; Paranoid schizophrenia F20.0 and Attention deficit hyperactivity disorder (ADHD), inattentive type, 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 [facility] [address] [id number] [address] [place] [address] Jul, Bipolar disorder, unspecifie d F31.9 [facility] [address] [id number] [address] [place] [address] Jul, [facility] [address] [facility] [id number] [address] [place] [address] Jun, [facility] [address] [facility] [id number] [address] [place] [id number] Jun, Schizoaffective disorder, ch ronic 295.72 ; Posttraumatic stress disorder 309.81 and Attention deficit disorder of childhood without mention of hyperactivity 314.00 [facility] [address] [id number] [address] [place] [id number] May, [facility] [address] [id number] [address] [place] [address] May, [facility] [address] [id number] [address] [place] [address] May, Schizoaffective disorder, ch ronic 295.72 ; Posttraumatic stress disorder 309.81 ; Attention deficit disorder of childhood without mention of hyperactivity 314.00 and Bipolar disorder, unspecified 296.80 [facility] [address] [id number] [address] [place] [address] Apr, Schizoaffective disorder, ch ronic 295.72 [facility] [address] [id number] [address] [place] [address] Apr, [facility] [address] [facility] [id number] [address] [place] [address] Apr, Schizoaffective disorder, ch ronic 295.72 ; Posttraumatic stress disorder 309.81 and Attention deficit disorder of childhood without mention of hyperactivity 314.00 [facility] [address] [id number] [address] [place] [address] Mar, Disorganized schizophrenia, 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 [facility] [address] [id number] [address] [place] [address] Mar, [facility] [address] [id number] [address] [place] [address] Mar, [facility] [address] [facility] [id number] [address] [place] [id number] Mar, [facility] [address] [id number] [address] [place] [id number] Mar, [facility] [address] [facility] [id number] [address] [place] [address] February, Schizoaffective disorder, ch ronic 295.72 [facility] [address] [id number] [address] [place] [address] February, [facility] [address] [facility] [id number] [address] [place] [address] February, Attention 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 ; Posttraumatic stress disorder 309.81 and Schizoaffective disorder, chronic 295.72 [facility] [address] [id number] [address] [place] [id number] Jan, [facility] [address] [id number] [address] [place] [id number] Jan, [facility] [address] [id number] [address] [place] [address] Jan, [facility] [address] [id number] [address] [place] [id number] Dec, [facility] [address] [id number] [address] [place] [address] Dec, [facility] [address] [id number] [address] [place] [address] Dec, [facility] [address] [id number] [address] [place] [address] Dec, [facility] [address] [id number] [address] [place] [id number] Dec, [facility] [address] [id number] [address] [place] [address] Dec, [facility] [address] [id number] [address] [place] [id number] Dec, [facility] [address] [id number] [address] [place] [address] Dec, [facility] [address] [id number] [address] [place] [address] Nov, [facility] [address] [id number] [address] [place] [id number] Nov, [facility] [address] [id number] [address] [place] [address] Nov, [facility] [address] [id number] [address] [place] [address], [place] [address] Nov, 2014 [facility] [address] [id number] [address] [place] [address], [place] [address] Nov, 2014 [facility] [address] [id number] [address] [place] [address], [place] [address] Nov, 2014 [facility] [address] [id number] [address] [place] [address], [place] [address] Nov, 2014 [facility] [address] [id number] [address] [place] [address], [place] [address] Nov, 2014 [facility] [address] [id number] [address] [place] [address], [place] [address] Nov, [facility] [address] [id number] [address] [place] [address], [place] [address] Nov, [facility] [address] [id number] [address] [place] [address] Oct, [facility] [address] [id number] [address] [place] [address], [place] [address] Oct, [facility] [address] [id number] [address] [place] [address] Oct, [facility] [address] [id number] [address] [place] [address] Oct, [facility] [address] [id number] [address] [place] [phone] Oct, [facility] [address] [id number] [address] [place] [address], [place] [address] Oct, [facility] [address] [id number] [address] [place] [address], [place] [address] Oct, [facility] [address] [id number] [address] [place] [address] Sep, [facility] [address] [id number] [address] [place] [id number] 17 Sep, 2014 [facility] [address] [id number] [address] [place] [address], [place] [address] 15 Sep, 2014 [facility] [address] [id number] [address] [place] [address], [place] [address] 15 Sep, 2014 [facility] [address] [id number] [address] [place] [address], [place] [address] Aug, [facility] [address] [id number] [address] [place] [address], [place] [address] Aug, [facility] [address] [id number] [address] [place] [address], [place] [address] Aug, [facility] [address] [id number] [address] [place] [address], [place] [address] Aug, [facility] [address] [id number] [address] [place] [address], [place] [address] Aug, [facility] [address] [id number] [address] [place] [address], [place] [address] Aug, [facility] [address] [id number] [address] [place] [address], [place] [address] 29 Jul, 2014 [facility] [address] [id number] [address] [place] [address], [place] [address] 29 Jul, 2014 [facility] [address] [id number] [address] [place] [address], [place] [address] 24 Jul, 2014 [facility] [address] [id number] [address] [place] [address], [place] [address] 24 Jul, 2014 [facility] [address] [id number] [address] [place] [address], [place] [address] 15 Jul, 2014 [facility] [address] [id number] [address] [place] [address], [place] [address] 15 Jul, 2014 [facility] [address] [id number] [address] [place] [address], [place] [address] 27 Jun, 2014 [facility] [address] [id number] [facility] [place] [address] 27 Jun, 2013 [facility] [address] [id number] [facility] [place] [address] 26 Jun, 2013 [facility] [address] [id number] [facility] [place] [address] 26 Jun, 2013 [facility] [address] [id number] [facility] [place] [address] 26 Jun, 2013 [facility] [address] [id number] [facility] [place] [address] 26 Jun, 2013 [facility] [address] [id number] [address] [place] [address], [place] [address] 16 Jun, 2013 [facility] [address] [id number] [address] [place] [address], [place] [address] 16 Jun, 2013 [facility] [address] [id number] [address] [place] [address], [place] [address] 16 Jun, 2013 [facility] [address] [id number] [address] [place] [address], [place] [address] 16 Jun, 2013 [facility] [address] [id number] [address] [place] [address], [place] [address] 04 Jun, 2013 [facility] [address] [id number] [address] [place] [address], [place] [address] May, [facility] [address] [id number] [address] [place] [address], [place] [address] May, [facility] [address] [id number] [address] [place] [address], [place] [address] May, [facility] [address] [id number] [address] [place] [address], [place] [address] May, [facility] [address] [id number] [address] [place] [address], [place] [address] May, [facility] [address] [id number] [address] [place] [address], [place] [address] May, [facility] [address] [id number] [facility] [place] [address] May, [facility] [address] [id number] [facility] [place] [address] May, [facility] [address] [id number] [facility] [place] [address] May, [facility] [address] [id number] [address] [place] [address], [place] [address] May, [facility] [address] [id number] [facility] [place] [address] Apr, [facility] [address] [id number] [address] [place] [address], [place] [address] Apr, [facility] [address] [id number] [address] [place] [address], [place] [address] Apr, [facility] [address] [id number] [address] [place] [address], [place] [address] Apr, [facility] [address] [id number] [address] [place] [address], [place] [address] Apr, [facility] [address] [id number] [address] [place] [address], [place] [address] Apr, [facility] [address] [id number] [address] [place] [address], [place] [address] Apr, [facility] [address] [id number] [address] [place] [address], [place] [address] Apr, [facility] [address] [id number] [address] [place] [address], [place] [address] Apr, [facility] [address] [id number] [address] [place] [address], [place] [address] Apr, [facility] [address] [id number] [address] [place] [address], [place] [address] Mar, [facility] [address] [id number] [facility] [place] [address] 26 Mar, 2014 [facility] [address] [id number] [address] [place] [address], [place] [address] 25 Mar, 2014 [facility] [address] [id number] [facility] [place] [address] 24 Mar, 2014 [facility] [address] [id number] [address] [place] [address], [place] [address] 20 Mar, 2014 [facility] [address] [id number] [address] [place] [address], [place] [address] 18 Mar, 2014 [facility] [address] [id number] [address] [place] [address], [place] [address] 18 Mar, 2014 [facility] [address] [id number] [address] [place] [address], [place] [address] 16 Mar, 2014 [facility] [address] [id number] [address] [place] [address], [place] [address] 16 Mar, 2014 [facility] [address] [id number] [address] [place] [address], [place] [address] 13 Mar, 2014 [facility] [address] [id number] [address] [place] [address], [place] [address] 13 Mar, 2014 [facility] [address] [id number] [address] [place] [address], [place] [address] 11 Mar, 2014 [facility] [address] [id number] [address] [place] [address], [place] [address] Mar, [facility] [address] [id number] [address] [place] [address], [place] [address] 10 Mar, 2014 [facility] [address] [id number] [address] [place] [address], [place] [address] 09 Mar, 2014 [facility] [address] [id number] [address] [place] [address], [place] [address] 09 Mar, 2014 [facility] [address] [id number] [address] [place] [address], [place] [address] 09 Mar, 2014 [facility] [address] [id number] [address] [place] [address], [place] [address] Mar, [facility] [address] [id number] [address] [place] [address], [place] [address] Mar, [facility] [address] [id number] [address] [place] [address], [place] [address] Mar, [facility] [address] [id number] [address] [place] [address], [place] [address] February, [facility] [address] [id number] [address] [place] [address], [place] [address] February, [facility] [address] [id number] [address] [place] [address], [place] [address] February, [facility] [address] [id number] [address] [place] [address], [place] [address] February, [facility] [address] [id number] [address] [place] [address], [place] [address] February, [facility] [address] [id number] [address] [place] [address], [place] [address] February, [facility] [address] [id number] [address] [place] [address], [place] [address] February, [facility] [address] [id number] [address] [place] [address], [place] [address] February, [facility] [address] [id number] [address] [place] [address], [place] [address] February, [facility] [address] [id number] [address] [place] [address], [place] [address] February, [facility] [address] [id number] [address] [place] [address], [place] [address] February, [facility] [address] [id number] [address] [place] [address], [place] [address] February, [facility] [address] [id number] [address] [place] [address], [place] [address] February, [facility] [address] [id number] [address] [place] [address], [place] [address] February, [facility] [address] [id number] [address] [place] [address], [place] [address] February, [facility] [address] [id number] [address] [place] [address], [place] [address] February, [facility] [address] [id number] [address] [place] [address], [place] [address] February, [facility] [address] [id number] [address] [place] [address], [place] [address] February, [facility] [address] [id number] [address] [place] [address], [place] [address] February, [facility] [address] [id number] [address] [place] [address], [place] [address] February, [facility] [address] [id number] [address] [place] [address], [place] [address] February, [facility] [address] [id number] [address] [place] [address], [place] [address] Jan, [facility] [address] [id number] [address] [place] [address], [place] [address] Jan, [facility] [address] [id number] [address] [place] [address], [place] [address] Jan, [facility] [address] [id number] [address] [place] [address], [place] [address] Jan, [facility] [address] [id number] [address] [place] [address], [place] [address] Jan, [facility] [address] [id number] [address] [place] [address], [place] [address] Jan, [facility] [address] [id number] [address] [place] [address], [place] [address] Jan, [facility] [address] [id number] [facility] [place] [address] 10 Jan, 2014 [facility] [address] [id number] [address] [place] [address], [place] [address] 21 Dec, 2013 [facility] [address] [id number] [facility] [place] [address] 20 Dec, 2013 [facility] [address] [id number] [address] [place] [address], [place] [address] 20 Dec, 2013 [facility] [address] [id number] [address] [place] [address], [place] [address] 19 Dec, 2013 [facility] [address] [id number] [address] [place] [address], [place] [address] 19 Dec, 2013 [facility] [address] [id number] [address] [place] [address], [place] [address] 15 Dec, 2013 [facility] [address] [id number] [address] [place] [address], [place] [address] 15 Dec, 2013 [facility] [address] [id number] [address] [place] [address], [place] [address] 11 Dec, 2013 [facility] [address] [id number] [address] [place] [address], [place] [address] 10 Dec, 2013 [facility] [address] [id number] [address] [place] [address], [place] [address] 10 Dec, 2013 [facility] [address] [id number] [address] [place] [address], [place] [address] 18 Nov, 2013 [facility] [address] [id number] [address] [place] [address], [place] [address] 17 Nov, 2013 [facility] [address] [id number] [address] [place] [address], [place] [address] 17 Nov, 2013 [facility] [address] [id number] [address] [place] [address], [place] [address] 05 Nov, 2013 [facility] [address] [id number] [address] [place] [address], [place] [address] Nov, [facility] [address] [id number] [address] [place] [address], [place] [address] Oct, [facility] [address] [id number] [address] [place] [address], [place] [address] Oct, [facility] [address] [id number] [address] [place] [address], [place] [address] Oct, [facility] [address] [id number] [address] [place] [address], [place] [address] Sep, [facility] [address] [id number] [address] [place] [address], [place] [address] Sep, [facility] [address] [id number] [address] [place] [address], [place] [address] Sep, [facility] [address] [id number] [address] [place] [address], [place] [address] Sep, [facility] [address] [id number] [address] [place] [address], [place] [address] Aug, [facility] [address] [id number] [address] [place] [address], [place] [address] Aug, [facility] [address] [id number] [address] [place] [address] Jul, [facility] [address] [id number] [address] [place] [address] Jul, [facility] [address] [id number] [address] [place] [address] Jul, [facility] [address] [id number] [address] [place] [address], [place] [address] Jul, [facility] [address] [id number] [address] [place] [address] Jul, [facility] [address] [id number] [address] [place] [address] Jun, [facility] [address] [id number] [address] [place] [address], [place] [address] 25 Jun, 2013 [facility] [address] [id number] [address] [place] [address], [place] [address] 19 Jun, 2013 [facility] [address] [id number] [address] [place] [address], [place] [address] 18 Jun, 2013 [facility] [address] [id number] [address] [place] [address], [place] [address] 16 Jun, 2013 [facility] [address] [id number] [address] [place] [address], [place] [address] 12 Jun, 2013 [facility] [address] [id number] [address] [place] [address], [place] [address] 11 Jun, 2013 [facility] [address] [id number] [address] [place] [address], [place] [address] 30 May, 2013 [facility] [address] [id number] [address] [place] [address], [place] [address] May, [facility] [address] [id number] [address] [place] [address], [place] [address] Apr, [facility] [address] [id number] [address] [place] [address], [place] [address] Apr, [facility] [address] [id number] [address] [place] [address], [place] [address] Apr, [facility] [address] [id number] [address] [place] [address], [place] [address] Mar, [facility] [address] [id number] [address] [place] [address], [place] [address] Mar, [facility] [address] [id number] [address] [place] [address], [place] [address] February, [facility] [address] [id number] [address] [place] [address], [place] [address] February, [facility] [address] [id number] [address] [place] [address], [place] [address] February, [facility] [address] [id number] [address] [place] [address], [place] [address] February, [facility] [address] [id number] [address] [place] [address], [place] [address] Jan, [facility] [address] [id number] [address] [place] [address], [place] [address] Jan, [facility] [address] [id number] [address] [place] [address], [place] [address] Jan, [facility] [address] [id number] [address] [place] [address], [place] [address] Dec, [facility] [address] [id number] [address] [place] [address], [place] [address] Dec, [facility] [address] [id number] [address] [place] [address], [place] [address] Dec, [facility] [address] [id number] [address] [place] [address], [place] [address] Dec, [facility] [address] [id number] [address] [place] [address], [place] [address] Nov, [facility] [address] [id number] [address] [place] [address], [place] [address] Nov, [facility] [address] [id number] [address] [place] [address], [place] [address] Oct, [facility] [address] [id number] [address] [place] [address], [place] [address] Oct, [facility] [address] [id number] [address] [place] [address], [place] [address] Oct, [facility] [address] [id number] [address] [place] [address], [place] [address] Oct, [facility] [address] [id number] [address] [place] [address], [place] [address] Aug, [facility] [address] [id number] [address] [place] [address], [place] [address] Aug, [facility] [address] [id number] [address] [place] [address], [place] [address] Jun, [facility] [address] [id number] [address] [place] [address], [place] [address] May, [facility] [address] [id number] [address] [place] [address], [place] [address] May, [facility] [address] [id number] [address] [place] [address], [place] [address] Apr, [facility] [address] [id number] [address] [place] [address], [place] [address] Apr, [facility] [address] [id number] [address] [place] [address], [place] [address] Apr, [facility] [address] [id number] [address] [place] [address], [place] [address] Mar, [facility] [address] [id number] [address] [place] [address], [place] [address] Mar, [facility] [address] [id number] [address] [place] [address], [place] [address] Mar, [facility] [address] [id number] [address] [place] [address], [place] [address] Mar, [facility] [address] [id number] [address] [place] [address], [place] [address] Mar, [facility] [address] [id number] [address] [place] [address], [place] [address] February, [facility] [address] [id number] [address] [place] [address], [place] [address] February, [facility] [address] [id number] [address] [place] [address], [place] [address] February, [facility] [address] [id number] [address] [place] [address], [place] [address] February, [facility] [address] [id number] [address] [place] [address], [place] [address] 16 Feb, 2012 [facility] [address] [id number] [address] [place] [address], [place] [address] February, [facility] [address] [id number] [address] [place] [address], [place] [address] February, [facility] [address] [id number] [address] [place] [address], [place] [address] 25 Jan, 2012 [facility] [address] [id number] [address] [place] [address], [place] [address] 18 Jan, 2012 [facility] [address] [id number] [address] [place] [address], [place] [address] 17 Jan, 2012 [facility] [address] [id number] [address] [place] [address], [place] [address] 13 Jan, 2012 [facility] [address] [id number] [address] [place] [address], [place] [address] 10 Jan, 2012 [facility] [address] [id number] [address] [place] [address], [place] [address] 04 Jan, 2012 [facility] [address] [id number] [address] [place] [address], [place] [address] 30 Dec, 2011 [facility] [address] [id number] [address] [place] [address], [place] [address] 24 Dec, 2011 [facility] [address] [id number] [address] [place] [address], [place] [address] 20 Dec, 2011 [facility] [address] [id number] [address] [place] [address], [place] [address] 13 Dec, 2011 [facility] [address] [id number] [address] [place] [address], [place] [address] 06 Dec, 2011 [facility] [address] [id number] [address] [place] [address], [place] [address] 28 Nov, 2011 [facility] [address] [id number] [address] [place] [address], [place] [address] Nov, [facility] [address] [id number] [facility] [place] [address] Nov, [facility] [address] [id number] [address] [place] [address], [place] [address] Nov, [facility] [address] [id number] [address] [place] [address], [place] [address] Nov, [facility] [address] [id number] [address] [place] [address], [place] [address] Nov, [facility] [address] [id number] [address] [place] [address], [place] [address] Oct, [facility] [address] [id number] [address] [place] [address], [place] [address] Oct, [facility] [address] [id number] [address] [place] [address], [place] [address] Oct, [facility] [address] [id number] [address] [place] [address], [place] [address] Oct, [facility] [address] [id number] [address] [place] [address], [place] [address] Oct, [facility] [address] [id number] [address] [place] [address], [place] [address] Sep, [facility] [address] [id number] [address] [place] [address], [place] [address] Sep, [facility] [address] [id number] [address] [place] [address], [place] [address] Sep, [facility] [address] [id number] [address] [place] [address], [place] [address] Sep, [facility] [address] [id number] [address] [place] [address], [place] [address] Sep, [facility] [address] [id number] [address] [place] [address], [place] [address] Sep, [facility] [address] [id number] [address] [place] [address], [place] [address] Sep, [facility] [address] [id number] [address] [place] [address], [place] [address] Sep, [facility] [address] [id number] [address] [place] [address], [place] [address] Sep, [facility] [address] [id number] [address] [place] [address], [place] [address] Aug, [facility] [address] [id number] [address] [place] [address], [place] [address] Aug, [facility] [address] [id number] [address] [place] [address], [place] [address] Aug, [facility] [address] [id number] [address] [place] [address], [place] [address] Aug, [facility] [address] [id number] [address] [place] [address], [place] [address] Aug, [facility] [address] [id number] [address] [place] [address], [place] [address] Aug, [facility] [address] [id number] [address] [place] [address], [place] [address] Aug, [facility] [address] [id number] [address] [place] [address], [place] [address] Aug, [facility] [address] [id number] [address] [place] [address], [place] [address] Aug, [facility] [address] [id number] [address] [place] [address], [place] [address] Aug, [facility] [address] [id number] [address] [place] [address], [place] [address] Aug, [facility] [address] [id number] [address] [place] [address], [place] [address] Aug, [facility] [address] [id number] [address] [place] [address], [place] [address] Jul, [facility] [address] [id number] [address] [place] [address] Jul, [facility] [address] [id number] [address] [place] [address] Jul, [facility] [address] [id number] [address] [place] [address] Jul, [facility] [address] [id number] [address] [place] [address] Jul, [facility] [address] [id number] [address] [place] [address] Jul, [facility] [address] [id number] [address] [place] [address] Jul, [facility] [address] [id number] [address] [place] [address] Jul, [facility] [address] [id number] [address] [place] [address] Jul, [facility] [address] [id number] [address] [place] [address] Jul, [facility] [address] [id number] [address] [place] [address] Nov, [facility] [address] [id number] [address] [place] [address] Aug, [facility] [address] [id number] [address] [place] [address] Aug, [facility] [address] [id number] [address] [place] [address] Aug, [facility] [address] [id number] [address] [place] [address] Aug, [facility] [address] [id number] [address] [place] [address] Jul, IMMUNIZATIONS No Known Immunizations SOCIAL HISTORY Never Assessed REASON FOR VISIT PLAN OF CARE VITAL SIGNS MEDICATIONS Unknown Medications RESULTS No Results PROCEDURES Procedure Date Ordered Result Body Site THER/PROPH/DIAG INJ, SC/IM May 07, 2014 INSTRUCTIONS MEDICATIONS ADMINISTERED No Known Medications [...]
--- OUTSIDE RECORDS SUMMARY | 2020-04-04 01:56 | XMS REPORT ---
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 Active 14787693 Problem Generalized anxiety disorder 300.02 A ctive 75947474 Problem Obsessive-compulsive disorders 300.3 Active 492597314 Problem Catatonic schizophrenia, 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 574572346 Problem Disorganized schizophrenia, 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 81402711 Problem Paranoid schizophrenia F20.0 Active 08312590 Problem Borderline personality disorder F60.3 Active 77972078 Problem Paranoid schizophrenia, unspecified condition 295.30 Active 87094313 Problem Schizoaffective disorder, depressive type F25.1 Active 82945800 Problem Bipolar disorder, unspecified 296.80 Active 83639760 Problem Schizoaffective disorder, unspecified F25.9 Active 81409046 Problem Attention deficit hyperactivity disorder (ADHD), inattentive type, 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 94489147 Problem Posttraumatic stress disorder F43.10 Active 72846759 Problem High risk medication use Z79.899 Activ e [id number] ALLERGIES No Information ENCOUNTERS Encounter Location Date Diagnosis [facility] [address] [facility] [id number] [address] [place] [address] Jun, Paranoid schizophrenia F20.0 ; 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 ; Attention deficit hyperactivity disorder (ADHD), inattentive type, 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 ; Posttraumatic stress disorder F43.10 and Borderline personality disorder F60.3 [facility] [address] [facility] [id number] [address] [place] [address] Jun, Paranoid schizophrenia F20.0 ; Attention deficit hyperactivity disorder (ADHD), inattentive type, 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 ; Posttraumatic stress disorder F43.10 ; Borderline personality disorder F60.3 and 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 [facility] [address] [id number] [address] [place] [address] Apr, Paranoid schizophrenia F20.0 ; Posttraumatic stress disorder F43.10 ; Attention deficit hyperactivity disorder (ADHD), inattentive type, 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 and Borderline personality disorder F60.3 [facility] [address] [id number] [address] [place] [address] Apr, Paranoid schizophrenia F20.0 [facility] [address] [id number] [address] [place] [address] Apr, Paranoid schizophrenia F20.0 ; Posttraumatic stress disorder F43.10 ; Attention deficit hyperactivity disorder (ADHD), inattentive type, 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 and Borderline personality disorder F60.3 [facility] [address] [id number] [address] [place] [address] Mar, Paranoid schizophrenia F20.0 [facility] [address] [facility] [id number] [address] [place] [phone] Mar, Paranoid schizophrenia F20.0 ; Posttraumatic stress disorder F43.10 ; Attention deficit hyperactivity disorder (ADHD), inattentive type, 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 and Borderline personality disorder F60.3 [facility] [address] [facility] [id number] [address] [place] [address] February, Paranoid schizophrenia F20.0 [facility] [address] [id number] [address] [place] [address] Jan, Paranoid schizophrenia F20.0 ; Posttraumatic stress disorder F43.10 ; Attention deficit hyperactivity disorder (ADHD), inattentive type, 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 and Borderline personality disorder F60.3 [facility] [address] [id number] [address] [place] [phone] Dec, Paranoid schizophrenia F20.0 ; Posttraumatic stress disorder F43.10 ; Attention deficit hyperactivity disorder (ADHD), inattentive type, 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 and Borderline personality disorder F60.3 [facility] [address] [facility] [id number] [address] [place] [address] Dec, Paranoid schizophrenia F20.0 ; Posttraumatic stress disorder F43.10 ; Attention deficit hyperactivity disorder (ADHD), inattentive type, 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 and Borderline personality disorder F60.3 [facility] [address] [facility] [id number] [address] [place] [phone] Oct, Paranoid schizophrenia F20.0 ; Posttraumatic stress disorder F43.10 ; Attention deficit hyperactivity disorder (ADHD), inattentive type, 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 and Borderline personality disorder F60.3 [facility] [address] [facility] [id number] [address] [place] [phone] Oct, Paranoid schizophrenia F20.0 ; Posttraumatic stress disorder F43.10 ; Attention deficit hyperactivity disorder (ADHD), inattentive type, 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 and Borderline personality disorder F60.3 [facility] [address] [facility] [id number] [address] [place] [phone] Aug, [facility] [address] [facility] [id number] [address] [place] [address] Aug, Paranoid schizophrenia F20.0 ; Posttraumatic stress disorder F43.10 ; Attention deficit hyperactivity disorder (ADHD), inattentive type, 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 and Borderline personality disorder F60.3 [facility] [address] [facility] [id number] [address] [place] [phone] Jul, Dry skin dermatitis L85.3 [facility] [address] [facility] [id number] [address] [place] [phone] Jul, [facility] [address] [facility] [id number] [address] [place] [phone] Jul, Paranoid schizophrenia F20.0 [facility] [address] [facility] [id number] [address] [place] [address] May, Paranoid schizophrenia F20.0 ; Posttraumatic stress disorder F43.10 ; Attention deficit hyperactivity disorder (ADHD), inattentive type, 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 and Borderline personality disorder F60.3 [facility] [address] [id number] [address] [place] [address] May, [facility] [address] [id number] [address] [place] [address] May, Paranoid schizophrenia F20.0 [facility] [address] [id number] [address] [place] [address] May, Paranoid schizophrenia F20.0 ; Posttraumatic stress disorder F43.10 ; Attention deficit hyperactivity disorder (ADHD), inattentive type, 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 and Borderline personality disorder F60.3 [facility] [address] [id number] [address] [place] [phone] Apr, [facility] [address] [id number] [address] [place] [address] Apr, Paranoid schizophrenia F20.0 ; Posttraumatic stress disorder F43.10 ; Attention deficit hyperactivity disorder (ADHD), inattentive type, 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 and Borderline personality disorder F60.3 [facility] [address] [id number] [address] [place] [phone] Apr, [facility] [address] [id number] [address] [place] [address] Apr, Schizoaffective disorder, de pressive type F25.1 and Borderline personality disorder F60.3 [facility] [address] [id number] [address] [place] [address] Apr, Paranoid schizophrenia F20.0 ; Posttraumatic stress disorder F43.10 ; Attention deficit hyperactivity disorder (ADHD), inattentive type, 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 and Borderline personality disorder F60.3 [facility] [address] [id number] [address] [place] [address] Apr, [facility] [address] [id number] [address] [place] [phone] Apr, Paranoid schizophrenia F20.0 ; Posttraumatic stress disorder F43.10 ; Attention deficit hyperactivity disorder (ADHD), inattentive type, 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 and Borderline personality disorder F60.3 [facility] [address] [id number] [address] [place] [phone] Apr, [facility] [address] [id number] [address] [place] [address] Mar, Paranoid schizophrenia F20.0 [facility] [address] [id number] [address] [place] [address] Mar, [facility] [address] [id number] [address] [place] [phone] Mar, Paranoid schizophrenia F20.0 ; Posttraumatic stress disorder F43.10 ; Attention deficit hyperactivity disorder (ADHD), inattentive type, 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 and Borderline personality disorder F60.3 [facility] [address] [id number] [address] [place] [phone] February, Paranoid schizophrenia F20.0 [facility] [address] [id number] [address] [place] [phone] February, Paranoid schizophrenia F20.0 ; Posttraumatic stress disorder F43.10 ; Attention deficit hyperactivity disorder (ADHD), inattentive type, 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 and Borderline personality disorder F60.3 [facility] [address] [id number] [address] [place] [address] February, Paranoid schizophrenia F20.0 ; Posttraumatic stress disorder F43.10 ; Attention deficit hyperactivity disorder (ADHD), inattentive type, 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0 ; Posttraumatic stress disorder F43.10 ; Attention deficit hyperactivity disorder (ADHD), inattentive type, 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 and Borderline personality disorder F60.3 [facility] [address] [facility] [id number] [address] [place] [phone] Jan, Paranoid schizophrenia F20.0 ; Posttraumatic stress disorder F43.10 ; Attention deficit hyperactivity disorder (ADHD), inattentive type, 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 and Borderline personality disorder F60.3 [facility] [address] [facility] [id number] [address] [place] [address] Jan, Paranoid schizophrenia F20.0 [facility] [address] [facility] [id number] [address] [place] [phone] Jan, Paranoid schizophrenia F20.0 [facility] [address] [facility] [id number] [address] [place] [address] Jan, Paranoid schizophrenia F20.0 ; Posttraumatic stress disorder F43.10 ; Attention deficit hyperactivity disorder (ADHD), inattentive type, 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 and Borderline personality disorder F60.3 [facility] [address] [facility] [id number] [address] [place] [address] Dec, [facility] [address] [facility] [id number] [address] [place] [phone] Nov, Paranoid schizophrenia F20.0 ; Posttraumatic stress disorder F43.10 ; Attention deficit hyperactivity disorder (ADHD), inattentive type, 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 and Borderline personality disorder F60.3 [facility] [address] [facility] [id number] [address] [place] [address] Nov, [facility] [address] [facility] [id number] [address] [place] [phone] Oct, Paranoid schizophrenia F20.0 [facility] [address] [id number] [address] [place] [phone] Oct, Paranoid schizophrenia F20.0 ; Posttraumatic stress disorder F43.10 ; Attention deficit hyperactivity disorder (ADHD), inattentive type, 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 ; Borderline personality disorder F60.3 and Other long-term (current) 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 Z79.899 [facility] [address] [id number] [address] [place] [phone] Oct, [facility] [address] [id number] [address] [place] [phone] Oct, [facility] [address] [id number] [address] [place] [phone] Sep, [facility] [address] [id number] [address] [place] [phone] Sep, Paranoid schizophrenia F20.0 ; Posttraumatic stress disorder F43.10 ; Attention deficit hyperactivity disorder (ADHD), inattentive type, 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 and Borderline personality disorder F60.3 [facility] [address] [id number] [address] [place] [phone] Sep, Paranoid schizophrenia F20.0 [facility] [address] [id number] [address] [place] [phone] Aug, Paranoid schizophrenia F20.0 ; Posttraumatic stress disorder F43.10 ; Attention deficit hyperactivity disorder (ADHD), inattentive type, 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 and Borderline personality disorder F60.3 [facility] [address] [id number] [address] [place] [phone] Aug, Paranoid schizophrenia F20.0 ; Posttraumatic stress disorder F43.10 ; Attention deficit hyperactivity disorder (ADHD), inattentive type, 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 and Borderline personality disorder F60.3 [facility] [address] [id number] [address] [place] [phone] Aug, [facility] [address] [id number] [address] [place] [phone] Jul, Paranoid schizophrenia F20.0 ; Posttraumatic stress disorder F43.10 ; Attention deficit hyperactivity disorder (ADHD), inattentive type, 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 and Borderline personality disorder F60.3 [facility] [address] [facility] [id number] [address] [place] [phone] Jul, Paranoid schizophrenia F20.0 [facility] [address] [id number] [address] [place] [phone] Jul, Paranoid schizophrenia F20.0 ; Posttraumatic stress disorder F43.10 ; Attention deficit hyperactivity disorder (ADHD), inattentive type, 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 and Borderline personality disorder F60.3 [facility] [address] [facility] [id number] [address] [place] [phone] Jun, Paranoid schizophrenia F20.0 ; Posttraumatic stress disorder F43.10 ; Attention deficit hyperactivity disorder (ADHD), inattentive type, 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 and Borderline personality disorder F60.3 [facility] [address] [facility] [id number] [address] [place] [phone] May, 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 [facility] [address] [facility] [id number] [address] [place] [phone] May, [facility] [address] [facility] [id number] [address] [place] [phone] May, [facility] [address] [facility] [id number] [address] [place] [phone] May, Attention deficit hyperactiv ity disorder (ADHD), inattentive type, mild F90.0 [facility] [address] [facility] [id number] [address] [place] [address] May, [facility] [address] [facility] [id number] [address] [place] [phone] May, Attention deficit hyperactiv ity disorder (ADHD), inattentive type, mild F90.0 [facility] [address] [facility] [id number] [address] [place] [address] May, Paranoid schizophrenia F20.0 ; Posttraumatic stress disorder F43.10 ; Attention deficit hyperactivity disorder (ADHD), inattentive type, 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 and Other long-term (current) 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 Z79.899 [facility] [address] [id number] [address] [place] [phone] Apr, Paranoid schizophrenia F20.0 [facility] [address] [id number] [address] [place] [address] Apr, Paranoid schizophrenia F20.0 ; Posttraumatic stress disorder F43.10 and Attention deficit hyperactivity disorder (ADHD), inattentive type, 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 [facility] [address] [facility] [id number] [address] [place] [phone] February, [facility] [address] [facility] [id number] [address] [place] [phone] February, Paranoid schizophrenia F20.0 ; Posttraumatic stress disorder F43.10 and Attention deficit hyperactivity disorder (ADHD), inattentive type, 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 [facility] [address] [facility] [id number] [address] [place] [address] February, Paranoid schizophrenia F20.0 ; Posttraumatic stress disorder F43.10 and Attention deficit hyperactivity disorder (ADHD), inattentive type, 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 [facility] [address] [facility] [id number] [address] [place] [address] Jan, Paranoid schizophrenia F20.0 ; Posttraumatic stress disorder F43.10 and Attention deficit hyperactivity disorder (ADHD), inattentive type, 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 [facility] [address] [id number] [address] [place] [address] [id number] Dec, Dental examination Z01.20 [facility] [address] [id number] [address] [place] [address] [id number] Nov, Dental examination Z01.20 [facility] [address] [id number] [address] [place] [address] [id number] Nov, Dental examination Z01.20 [facility] [address] [id number] [address] [place] [address] [id number] 14 Nov, 2016 Dental caries K02.9 [facility] [address] [facility] [id number] [address] [place] [phone] 13 Nov, 2016 High risk medication use Z79 .899 [facility] [address] [facility] [id number] [address] [place] [address] Nov, Paranoid schizophrenia F20.0 ; Posttraumatic stress disorder F43.10 ; Attention deficit hyperactivity disorder (ADHD), inattentive type, 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 and Borderline personality disorder in adult F60.3 [facility] [address] [id number] [address] [place] [address] [id number] Oct, Dental caries K02.9 [facility] [address] [facility] [id number] [address] [place] [address] Sep, Paranoid schizophrenia F20.0 ; Posttraumatic stress disorder F43.10 and Attention deficit hyperactivity disorder (ADHD), inattentive type, 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 [facility] [address] [facility] [id number] [address] [place] [address] Aug, Paranoid schizophrenia F20.0 ; Posttraumatic stress disorder F43.10 and Attention deficit hyperactivity disorder (ADHD), inattentive type, 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 [facility] [address] [facility] [id number] [address] [place] [phone] Aug, Strep throat J02.0 and Cough R05 [facility] [address] [facility] [id number] [address] [place] [phone] Aug, [facility] [address] [facility] [id number] [address] [place] [phone] Jul, Paranoid schizophrenia F20.0 ; Posttraumatic stress disorder F43.10 and Attention deficit hyperactivity disorder (ADHD), inattentive type, 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 [facility] [address] [facility] [id number] [address] [place] [phone] Jul, [facility] [address] [id number] [address] [place] [phone] Jun, Paranoid schizophrenia F20.0 ; Posttraumatic stress disorder F43.10 and Attention deficit hyperactivity disorder (ADHD), inattentive type, 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 [facility] [address] [id number] [address] [place] [address] [id number] Jun, Dental examination Z01.20 [facility] [address] [id number] [address] [place] [phone] Jun, [facility] [address] [id number] [address] [place] [phone] May, Paranoid schizophrenia F20.0 [facility] [address] [id number] [address] [place] [phone] May, Paranoid schizophrenia F20.0 ; Posttraumatic stress disorder F43.10 and Attention deficit hyperactivity disorder (ADHD), inattentive type, 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 [facility] [address] [id number] [address] [place] [phone] May, [facility] [address] [id number] [address] [place] [phone] May, Paranoid schizophrenia F20.0 [facility] [address] [id number] [address] [place] [address] May, [facility] [address] [id number] [address] [place] [address] May, Paranoid schizophrenia F20.0 [facility] [address] [id number] [address] [place] [phone] May, Schizoaffective disorder, un specified F25.9 [facility] [address] [id number] [address] [place] [phone] May, Schizoaffective disorder, un specified F25.9 [facility] [address] [id number] [address] [place] [phone] May, [facility] [address] [id number] [address] [place] [phone] May, Paranoid schizophrenia F20.0 [facility] [address] [id number] [address] [place] [phone] May, Paranoid schizophrenia F20.0 ; Posttraumatic stress disorder F43.10 and Attention deficit hyperactivity disorder (ADHD), inattentive type, 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 [facility] [address] [id number] [address] [place] [address] Mar, [facility] [address] [id number] [address] [place] [phone] Mar, Paranoid schizophrenia F20.0 ; Posttraumatic stress disorder F43.10 and Attention deficit hyperactivity disorder (ADHD), inattentive type, 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 [facility] [address] [id number] [address] [place] [phone] Mar, Paranoid schizophrenia F20.0 [facility] [address] [id number] [address] [place] [address] Mar, Paranoid schizophrenia F20.0 ; Attention deficit hyperactivity disorder (ADHD), inattentive type, 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 and Posttraumatic stress disorder F43.10 [facility] [address] [id number] [address] [place] [phone] Mar, [facility] [address] [id number] [address] [place] [phone] Mar, Paranoid schizophrenia F20.0 ; Posttraumatic stress disorder F43.10 and Attention deficit hyperactivity disorder (ADHD), inattentive type, 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 [facility] [facility] [address] [id number] [address] [place] [address] February, [facility] [address] [id number] [address] [place] [address] February, [facility] [address] [id number] [address] [place] [address] February, [facility] [address] [id number] [address] [place] [address] February, [facility] [address] [id number] [address] [place] [address] Jan, Paranoid schizophrenia F20.0 [facility] [address] [id number] [address] [place] [address] [id number] Jan, Dental examination Z01.20 [facility] [address] [id number] [address] [place] [address] [id number] Jan, Dental caries K02.9 [facility] [address] [id number] [address] [place] [address] [id number] Jan, Dental examination Z01.20 [facility] [address] [id number] [place] [address] [id number] Dec, Encounter for dental examina tion Z01.20 [facility] [address] [id number] [address] [place] [address] Dec, Paranoid schizophrenia F20.0 [facility] [address] [id number] [place] [address] [id number] Dec, Dental examination Z01.20 [facility] [address] [id number] [address] [place] [address] Dec, [facility] [address] [id number] [address] [place] [address] Dec, Paranoid schizophrenia F20.0 ; Posttraumatic stress disorder F43.10 and Attention deficit hyperactivity disorder (ADHD), inattentive type, 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 [facility] [address] [id number] [address] [place] [address] Nov, Schizoaffective disorder, un specified F25.9 [facility] [address] [id number] [address] [place] [address] Oct, Paranoid schizophrenia F20.0 [facility] [address] [id number] [address] [place] [phone] 07 Oct, 2015 [facility] [address] [facility] [id number] [address] [place] [address] Sep, Paranoid schizophrenia F20.0 ; Posttraumatic stress disorder F43.10 and Attention deficit hyperactivity disorder (ADHD), inattentive type, 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 [facility] [address] [facility] [id number] [address] [place] [address] Sep, [facility] [address] [facility] [id number] [address] [place] [address] Sep, Paranoid schizophrenia F20.0 ; Posttraumatic stress disorder F43.10 and Attention deficit hyperactivity disorder (ADHD), inattentive type, 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 [facility] [address] [facility] [id number] [address] [place] [address] Aug, Paranoid schizophrenia F20.0 [facility] [address] [facility] [id number] [address] [place] [address] Aug, [facility] [address] [facility] [id number] [address] [place] [address] Aug, Posttraumatic stress disorde r F43.10 ; Paranoid schizophrenia F20.0 and Attention deficit hyperactivity disorder (ADHD), inattentive type, 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 [facility] [address] [place] [id number] [address] [place] [address] Jul, Bipolar disorder, unspecifie d F31.9 [facility] [address] [facility] [id number] [address] [place] [address] Jul, [facility] [address] [facility] [id number] [address] [place] [address] Jun, [facility] [address] [facility] [id number] [address] [place] [address] Jun, Schizoaffective disorder, ch ronic 295.72 ; Posttraumatic stress disorder 309.81 and Attention deficit disorder of childhood without mention of hyperactivity 314.00 [facility] [address] [place] [id number] [address] [place] [address] May, [facility] [address] [id number] [address] [place] [address] May, [facility] [address] [id number] [address] [place] [address] May, Schizoaffective disorder, ch ronic 295.72 ; Posttraumatic stress disorder 309.81 ; Attention deficit disorder of childhood without mention of hyperactivity 314.00 and Bipolar disorder, unspecified 296.80 [facility] [address] [id number] [address] [place] [address] Apr, Schizoaffective disorder, ch ronic 295.72 [facility] [address] [id number] [address] [place] [address] Apr, [facility] [address] [id number] [address] [place] [address] Apr, Schizoaffective disorder, ch ronic 295.72 ; Posttraumatic stress disorder 309.81 and Attention deficit disorder of childhood without mention of hyperactivity 314.00 [facility] [address] [id number] [address] [place] [address] Mar, Disorganized schizophrenia, 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 [facility] [address] [id number] [address] [place] [address] Mar, [facility] [address] [id number] [address] [place] [address] Mar, [facility] [address] [id number] [address] [place] [address] Mar, [facility] [address] [facility] [id number] [address] [place] [address] Mar, [facility] [address] [facility] [id number] [address] [place] [address] February, Schizoaffective disorder, ch ronic 295.72 [facility] [address] [facility] [id number] [address] [place] [address] February, [facility] [address] [id number] [address] [place] [address] February, Attention 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 ; Posttraumatic stress disorder 309.81 and Schizoaffective disorder, chronic 295.72 [facility] [address] [id number] [address] [place] [address] Jan, [facility] [address] [id number] [address] [place] [address] Jan, [facility] [address] [id number] [address] [place] [address] Jan, [facility] [address] [id number] [address] [place] [address] Dec, [facility] [address] [id number] [address] [place] [address] Dec, [facility] [address] [id number] [address] [place] [address] Dec, [facility] [address] [id number] [address] [place] [address] Dec, [facility] [address] [id number] [address] [place] [address] Dec, [facility] [address] [id number] [address] [place] [address] Dec, [facility] [address] [id number] [address] [place] [address] Dec, [facility] [address] [id number] [address] [place] [address] Dec, [facility] [address] [id number] [address] [place] [address] Nov, [facility] [address] [id number] [address] [place] [address] Nov, [facility] [address] [id number] [address] [place] [address], [place] [address] Nov, 2014 [facility] [address] [id number] [address] [place] [address], [place] [address] Nov, 2014 [facility] [address] [id number] [address] [place] [address], [place] [address] Nov, 2014 [facility] [address] [id number] [address] [place] [address], [place] [address] Nov, 2014 [facility] [address] [id number] [address] [place] [address], [place] [address] Nov, [facility] [address] [id number] [address] [place] [address], [place] [address] Nov, [facility] [address] [id number] [address] [place] [address], [place] [address] Nov, [facility] [address] [id number] [address] [place] [address], [place] [address] Nov, [facility] [address] [id number] [address] [place] [address], [place] [address] Oct, [facility] [address] [id number] [address] [place] [address], [place] [address] Oct, [facility] [address] [id number] [address] [place] [address], [place] [address] Oct, [facility] [address] [id number] [address] [place] [address] Oct, [facility] [address] [id number] [address] [place] [address], [place] [address] Oct, [facility] [address] [id number] [address] [place] [address], [place] [address] Oct, [facility] [address] [id number] [address] [place] [address] Oct, [facility] [address] [id number] [address] [place] [address] 17 Sep, 2014 [facility] [address] [id number] [address] [place] [address], [place] [address] 17 Sep, 2014 [facility] [address] [id number] [address] [place] [address], [place] [address] 15 Sep, 2014 [facility] [address] [id number] [address] [place] [address], [place] [address] 15 Sep, 2014 [facility] [address] [id number] [address] [place] [address], [place] [address] Aug, [facility] [address] [id number] [address] [place] [address], [place] [address] Aug, [facility] [address] [id number] [address] [place] [address], [place] [address] Aug, [facility] [address] [id number] [address] [place] [address], [place] [address] Aug, [facility] [address] [id number] [address] [place] [address], [place] [address] Aug, [facility] [address] [id number] [address] [place] [address], [place] [address] Aug, [facility] [address] [id number] [address] [place] [address], [place] [address] 29 Jul, 2014 [facility] [address] [id number] [address] [place] [address], [place] [address] 29 Jul, 2014 [facility] [address] [id number] [address] [place] [address] 24 Jul, 2014 [facility] [address] [id number] [address] [place] [address], [place] [address] 24 Jul, 2014 [facility] [address] [id number] [address] [place] [address], [place] [address] 15 Jul, 2014 [facility] [address] [id number] [address] [place] [address], [place] [address] 15 Jul, 2014 [facility] [address] [id number] [facility] [place] [address] 27 Sep, 2013 [facility] [address] [id number] [facility] [place] [address] 27 Sep, 2013 [facility] [address] [id number] [facility] [place] [address] 26 Jun, 2013 [facility] [address] [id number] [facility] [place] [address] 26 Jun, 2013 [facility] [address] [id number] [facility] [place] [address] 26 Jun, 2013 [facility] [address] [id number] [address] [place] [address], [place] [address] 26 Jun, 2013 [facility] [address] [id number] [address] [place] [address], [place] [address] 16 Jun, 2013 [facility] [address] [id number] [address] [place] [address], [place] [address] 16 Jun, 2013 [facility] [address] [id number] [address] [place] [address], [place] [address] 16 Jun, 2013 [facility] [address] [id number] [address] [place] [address], [place] [address] 16 Jun, 2013 [facility] [address] [id number] [address] [place] [address], [place] [address] 04 Jun, 2013 [facility] [address] [id number] [address] [place] [address], [place] [address] May, [facility] [address] [id number] [address] [place] [address], [place] [address] May, [facility] [address] [id number] [address] [place] [address], [place] [address] May, [facility] [address] [id number] [address] [place] [address], [place] [address] May, [facility] [address] [id number] [address] [place] [address], [place] [address] May, [facility] [address] [id number] [facility] [place] [address] May, [facility] [address] [id number] [address] [place] [address], [place] [address] May, [facility] [address] [id number] [address] [place] [address], [place] [address] May, [facility] [address] [id number] [address] [place] [address], [place] [address] May, [facility] [address] [id number] [address] [place] [address], [place] [address] May, [facility] [address] [id number] [address] [place] [address], [place] [address] Apr, [facility] [address] [id number] [address] [place] [address], [place] [address] Apr, [facility] [address] [id number] [address] [place] [address], [place] [address] Apr, [facility] [address] [id number] [address] [place] [address], [place] [address] Apr, [facility] [address] [id number] [address] [place] [address], [place] [address] Apr, [facility] [address] [id number] [address] [place] [address], [place] [address] Apr, [facility] [address] [id number] [address] [place] [address], [place] [address] Apr, [facility] [address] [id number] [address] [place] [address], [place] [address] Apr, [facility] [address] [id number] [address] [place] [address], [place] [address] Apr, [facility] [address] [id number] [address] [place] [address], [place] [address] Apr, [facility] [address] [id number] [address] [place] [address], [place] [address] Mar, [facility] [address] [id number] [facility] [place] [address] Mar, [facility] [address] [id number] [facility] [place] [address] 25 Mar, 2014 [facility] [address] [id number] [address] [place] [address], [place] [address] 24 Mar, 2014 [facility] [address] [id number] [address] [place] [address], [place] [address] 20 Mar, 2014 [facility] [address] [id number] [address] [place] [address], [place] [address] 18 Mar, 2014 [facility] [address] [id number] [address] [place] [address], [place] [address] 18 Mar, 2014 [facility] [address] [id number] [address] [place] [address], [place] [address] 16 Mar, 2014 [facility] [address] [id number] [address] [place] [address], [place] [address] 16 Mar, 2014 [facility] [address] [id number] [address] [place] [address], [place] [address] Mar, [facility] [address] [id number] [address] [place] [address], [place] [address] 13 Mar, 2014 [facility] [address] [id number] [address] [place] [address], [place] [address] Mar, [facility] [address] [id number] [address] [place] [address], [place] [address] 11 Mar, 2014 [facility] [address] [id number] [address] [place] [address], [place] [address] 10 Mar, 2014 [facility] [address] [id number] [address] [place] [address], [place] [address] 09 Mar, 2014 [facility] [address] [id number] [address] [place] [address], [place] [address] 09 Mar, 2014 [facility] [address] [id number] [facility] [place] [address] Mar, [facility] [address] [id number] [address] [place] [address], [place] [address] Mar, [facility] [address] [id number] [address] [place] [address], [place] [address] Mar, [facility] [address] [id number] [address] [place] [address], [place] [address] Mar, [facility] [address] [id number] [address] [place] [address], [place] [address] February, [facility] [address] [id number] [address] [place] [address], [place] [address] February, [facility] [address] [id number] [address] [place] [address], [place] [address] February, [facility] [address] [id number] [address] [place] [address], [place] [address] February, [facility] [address] [id number] [address] [place] [address], [place] [address] February, [facility] [address] [id number] [address] [place] [address], [place] [address] February, [facility] [address] [id number] [address] [place] [address], [place] [address] February, [facility] [address] [id number] [address] [place] [address], [place] [address] February, [facility] [address] [id number] [address] [place] [address], [place] [address] February, [facility] [address] [id number] [address] [place] [address], [place] [address] February, [facility] [address] [id number] [address] [place] [address], [place] [address] February, [facility] [address] [id number] [address] [place] [address], [place] [address] February, [facility] [address] [id number] [address] [place] [address], [place] [address] February, [facility] [address] [id number] [address] [place] [address], [place] [address] February, [facility] [address] [id number] [address] [place] [address], [place] [address] February, [facility] [address] [id number] [address] [address], [place] [address] February, [facility] [address] [id number] [address] [address], [place] [address] February, [facility] [address] [id number] [address] [address], [place] [address] February, [facility] [address] [id number] [address] [address], [place] [address] February, [facility] [address] [id number] [address] [place] [address], [place] [address] February, [facility] [address] [id number] [address] [address], [place] [address] February, [facility] [address] [id number] [address] [address], [place] [address] Jan, [facility] [address] [id number] [address] [place] [address], [place] [address] Jan, [facility] [address] [id number] [address] [address], [place] [address] Jan, [facility] [address] [id number] [address] [place] [address], [place] [address] Jan, [facility] [address] [id number] [address] [place] [address], [place] [address] Jan, [facility] [address] [id number] [address] [place] [address], [place] [address] Jan, [facility] [address] [id number] [facility] [place] [address] 10 Jan, 2014 [facility] [address] [id number] [address] [place] [address], [place] [address] 10 Jan, 2014 [facility] [address] [id number] [facility] [place] [address] 21 Dec, 2013 [facility] [address] [id number] [address] [place] [address], [place] [address] 20 Dec, 2013 [facility] [address] [id number] [address] [place] [address], [place] [address] 20 Dec, 2013 [facility] [address] [id number] [address] [place] [address], [place] [address] 19 Dec, 2013 [facility] [address] [id number] [address] [place] [address], [place] [address] 19 Dec, 2013 [facility] [address] [id number] [address] [place] [address], [place] [address] 15 Dec, 2013 [facility] [address] [id number] [address] [place] [address], [place] [address] 15 Dec, 2013 [facility] [address] [id number] [address] [place] [address], [place] [address] 11 Dec, 2013 [facility] [address] [id number] [address] [place] [address], [place] [address] 10 Dec, 2013 [facility] [address] [id number] [address] [place] [address], [place] [address] 10 Dec, 2013 [facility] [address] [id number] [address] [place] [address], [place] [address] 18 Nov, 2013 [facility] [address] [id number] [address] [place] [address], [place] [address] 17 Nov, 2013 [facility] [address] [id number] [address] [place] [address], [place] [address] 17 Nov, 2013 [facility] [address] [id number] [address] [place] [address], [place] [address] Nov, [facility] [address] [id number] [address] [place] [address], [place] [address] Nov, [facility] [address] [id number] [address] [address], [place] [address] Oct, [facility] [address] [id number] [address] [place] [address], [place] [address] Oct, [facility] [address] [id number] [address] [place] [place] [address], [place] [address] Oct, [facility] [address] [id number] [address] [address], [place] [address] Sep, [facility] [address] [id number] [address] [address], [place] [address] Sep, [facility] [address] [id number] [address] [address], [place] [address] Sep, [facility] [address] [id number] [address] [address], [place] [address] Sep, [facility] [address] [id number] [address] [address], [place] [address] Aug, [facility] [address] [id number] [address] [place] [address] Aug, [facility] [address] [id number] [address] [address], [place] [address] Jul, [facility] [address] [id number] [address] [place] [address] Jul, [facility] [address] [id number] [address] [address], [place] [address] Jul, [facility] [address] [id number] [address] [address], [place] [address] Jul, [facility] [address] [id number] [address] [address], [place] [address] Jul, [facility] [address] [id number] [address] [address], [place] [address] 25 Jun, 2012 [facility] [address] [id number] [address] [address], [place] [address] 25 Jun, 2012 [facility] [address] [id number] [address] [address], [place] [address] 19 Jun, 2013 [facility] [address] [id number] [address] [address], [place] [address] 18 Jun, 2013 [facility] [address] [id number] [address] [address], [place] [address] 16 Jun, 2013 [facility] [address] [id number] [address] [address], [place] [address] 12 Jun, 2013 [facility] [address] [id number] [address] [address], [place] [address] 11 Jun, 2013 [facility] [address] [id number] [address] [place] [address], [place] [address] 30 May, 2013 [facility] [address] [id number] [address] [address], [place] [address] May, [facility] [address] [id number] [address] [address], [place] [address] Apr, [facility] [address] [id number] [address] [address], [place] [address] Apr, [facility] [address] [id number] [address] [address], [place] [address] Apr, [facility] [address] [id number] [address] [address], [place] [address] Mar, [facility] [address] [id number] [address] [address], [place] [address] Mar, [facility] [address] [id number] [address] [address], [place] [address] February, [facility] [address] [id number] [address] [address], [place] [address] February, [facility] [address] [id number] [address] [address], [place] [address] February, [facility] [address] [id number] [address] [address], [place] [address] February, [facility] [address] [id number] [address] [address], [place] [address] Jan, [facility] [address] [id number] [address] [place] [address], [place] [address] Jan, [facility] [address] [id number] [address] [address], [place] [address] Jan, [facility] [address] [id number] [address] [address], [place] [address] 29 Dec, 2012 [facility] [address] [id number] [address] [address], [place] [address] Dec, [facility] [address] [id number] [address] [address], [place] [address] Dec, [facility] [address] [id number] [address] [address], [place] [address] Dec, [facility] [address] [id number] [address] [address], [place] [address] Nov, [facility] [address] [id number] [address] [address], [place] [address] Nov, [facility] [address] [id number] [address] [address], [place] [address] Oct, [facility] [address] [id number] [address] [address], [place] [address] Oct, [facility] [address] [id number] [address] [address], [place] [address] Oct, [facility] [address] [id number] [address] [address], [place] [address] Oct, [facility] [address] [id number] [address] [address], [place] [address] Aug, [facility] [address] [id number] [address] [address], [place] [address] Aug, [facility] [address] [id number] [address] [address], [place] [address] Jun, [facility] [address] [id number] [address] [address], [place] [address] May, [facility] [address] [id number] [address] [address], [place] [address] May, [facility] [address] [id number] [address] [address], [place] [address] Apr, [facility] [address] [id number] [address] [address], [place] [address] Apr, [facility] [address] [id number] [address] [address], [place] [address] Apr, [facility] [address] [id number] [address] [address], [place] [address] Mar, [facility] [address] [id number] [address] [address], [place] [address] Mar, [facility] [address] [id number] [address] [address], [place] [address] Mar, [facility] [address] [id number] [address] [address], [place] [address] Mar, [facility] [address] [id number] [address] [address], [place] [address] Mar, [facility] [address] [id number] [address] [address], [place] [address] February, [facility] [address] [id number] [address] [address], [place] [address] February, [facility] [address] [id number] [address] [address], [place] [address] February, [facility] [address] [id number] [address] [address], [place] [address] February, [facility] [address] [id number] [address] [address], [place] [address] February, [facility] [address] [id number] [address] [address], [place] [address] February, [facility] [address] [id number] [address] [address], [place] [address] February, [facility] [address] [id number] [address] [address], [place] [address] Jan, [facility] [address] [id number] [address] [address], [place] [address] 18 Jan, 2012 [facility] [address] [id number] [address] [address], [place] [address] 17 Jan, 2012 [facility] [address] [id number] [address] [address], [place] [address] 13 Jan, 2012 [facility] [address] [id number] [address] [address], [place] [address] 10 Jan, 2012 [facility] [address] [id number] [address] [address], [place] [address] 04 Jan, 2012 [facility] [address] [id number] [address] [address], [place] [address] 30 Dec, 2011 [facility] [address] [id number] [address] [address], [place] [address] 24 Dec, 2011 [facility] [address] [id number] [address] [address], [place] [address] 20 Dec, 2011 [facility] [address] [id number] [address] [address], [place] [address] 13 Dec, 2011 [facility] [address] [id number] [address] [address], [place] [address] 06 Dec, 2011 [facility] [address] [id number] [address] [address], [place] [address] Nov, [facility] [address] [id number] [facility] [place] [address] Nov, [facility] [address] [id number] [address] [address], [place] [address] Nov, [facility] [address] [id number] [address] [address], [place] [address] 14 Nov, 2011 [facility] [address] [id number] [address] [address], [place] [address] Nov, [facility] [address] [id number] [address] [address], [place] [address] Nov, [facility] [address] [id number] [address] [address], [place] [address] Oct, [facility] [address] [id number] [address] [address], [place] [address] Oct, [facility] [address] [id number] [address] [address], [place] [address] Oct, [facility] [address] [id number] [address] [address], [place] [address] Oct, [facility] [address] [id number] [address] [address], [place] [address] Oct, [facility] [address] [id number] [address] [address], [place] [address] Sep, [facility] [address] [id number] [address] [address], [place] [address] Sep, [facility] [address] [id number] [address] [address], [place] [address] Sep, [facility] [address] [id number] [address] [address], [place] [address] Sep, [facility] [address] [id number] [address] [address], [place] [address] Sep, [facility] [address] [id number] [address] [address], [place] [address] 13 Sep, 2011 [facility] [address] [id number] [address] [address], [place] [address] Sep, [facility] [address] [id number] [address] [address], [place] [address] Sep, [facility] [address] [id number] [address] [address], [place] [address] Sep, [facility] [address] [id number] [address] [address], [place] [address] Aug, [facility] [address] [id number] [address] [address], [place] [address] Aug, [facility] [address] [id number] [address] [address], [place] [address] Aug, [facility] [address] [id number] [address] [address], [place] [address] Aug, [facility] [address] [id number] [address] [address], [place] [address] Aug, [facility] [address] [id number] [address] [address], [place] [address] Aug, [facility] [address] [id number] [address] [address], [place] [address] Aug, [facility] [address] [id number] [address] [address], [place] [address] Aug, [facility] [address] [id number] [address] [address], [place] [address] Aug, [facility] [address] [id number] [address] [address], [place] [address] Aug, [facility] [address] [id number] [address] [address], [place] [address] Aug, [facility] [address] [id number] [address] [address], [place] [address] Aug, [facility] [address] [id number] [address] [address], [place] [address] Jul, [facility] [address] [id number] [address] [address], [place] [address] Jul, [facility] [address] [id number] [address] [address], [place] [address] Jul, [facility] [address] [id number] [address] [address], [place] [address] Jul, [facility] [address] [id number] [address] [address], [place] [address] Jul, [facility] [address] [id number] [address] [address], [place] [address] Jul, [facility] [address] [id number] [address] [address], [place] [address] Jul, [facility] [address] [id number] [address] [place] [address] Jul, [facility] [address] [id number] [address] [address], [place] [address] Jul, [facility] [address] [id number] [address] [place] [address] Jul, [facility] [address] [id number] [address] [place] [address] Nov, [facility] [address] [id number] [address] [place] [address] Aug, [facility] [address] [id number] [address] [place] [address], [place] [address] Aug, [facility] [address] [id number] [address] [address], [place] [address] Aug, [facility] [address] [id number] [address] [place] [address] Aug, [facility] [address] [id number] [address] [place] [address] Jul, IMMUNIZATIONS No Known Immunizations SOCIAL HISTORY [...]
--- OUTSIDE RECORDS SUMMARY | 2020-04-04 01:57 | XMS REPORT ---
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 846273564 Problem Disorganized schizophrenia, 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 97318182 Problem Paranoid schizophrenia F20.0 Active 35902781 Problem Borderline personality disorder F60.3 Active 92984510 Problem Paranoid schizophrenia, unspecified condition 295.30 Active 66326214 Problem Schizoaffective disorder, depressive type F25.1 Active 39149139 Problem Bipolar disorder, unspecified 296.80 Active 04669405 Problem Schizoaffective disorder, unspecified F25.9 Active 72505119 Problem Attention deficit hyperactivity disorder (ADHD), inattentive type, 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 88000972 Problem Posttraumatic stress disorder F43.10 Active 28458161 Problem High risk medication use Z79.899 Activ e [id number] ALLERGIES No Information ENCOUNTERS Encounter Location Date Diagnosis [facility] [address] [facility] [id number] [address] [place] [phone] Jun, Paranoid schizophrenia F20.0 ; Attention deficit hyperactivity disorder (ADHD), inattentive type, 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 ; Posttraumatic stress disorder F43.10 ; Borderline personality disorder F60.3 and Other correction (current) drug therapy Z79.899 [facility] [address] [facility] [id number] [address] [place] [address] Apr, Paranoid schizophrenia F20.0 ; Posttraumatic stress disorder F43.10 ; Attention deficit hyperactivity disorder (ADHD), inattentive type, 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 and Borderline personality disorder F60.3 [facility] [address] [id number] [address] [place] [address] Apr, Paranoid schizophrenia F20.0 [facility] [address] [id number] [address] [place] [address] Apr, Paranoid schizophrenia F20.0 ; Posttraumatic stress disorder F43.10 ; Attention deficit hyperactivity disorder (ADHD), inattentive type, 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 and Borderline personality disorder F60.3 [facility] [address] [id number] [address] [place] [address] Mar, Paranoid schizophrenia F20.0 [facility] [address] [id number] [address] [place] [address] Mar, Paranoid schizophrenia F20.0 ; Posttraumatic stress disorder F43.10 ; Attention deficit hyperactivity disorder (ADHD), inattentive type, 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 and Borderline personality disorder F60.3 [facility] [address] [id number] [address] [place] [address] February, Paranoid schizophrenia F20.0 [facility] [address] [id number] [address] [place] [address] Jan, Paranoid schizophrenia F20.0 ; Posttraumatic stress disorder F43.10 ; Attention deficit hyperactivity disorder (ADHD), inattentive type, 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 and Borderline personality disorder F60.3 [facility] [address] [id number] [address] [place] [address] Dec, Paranoid schizophrenia F20.0 ; Posttraumatic stress disorder F43.10 ; Attention deficit hyperactivity disorder (ADHD), inattentive type, 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 and Borderline personality disorder F60.3 [facility] [address] [id number] [address] [place] [address] Dec, Paranoid schizophrenia F20.0 ; Posttraumatic stress disorder F43.10 ; Attention deficit hyperactivity disorder (ADHD), inattentive type, 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 and Borderline personality disorder F60.3 [facility] [address] [facility] [id number] [address] [place] [address] Oct, Paranoid schizophrenia F20.0 ; Posttraumatic stress disorder F43.10 ; Attention deficit hyperactivity disorder (ADHD), inattentive type, 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 and Borderline personality disorder F60.3 [facility] [address] [facility] [id number] [address] [place] [address] Oct, Paranoid schizophrenia F20.0 ; Posttraumatic stress disorder F43.10 ; Attention deficit hyperactivity disorder (ADHD), inattentive type, 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 and Borderline personality disorder F60.3 [facility] [address] [facility] [id number] [address] [place] [address] Aug, [facility] [address] [facility] [id number] [address] [place] [address] Aug, Paranoid schizophrenia F20.0 ; Posttraumatic stress disorder F43.10 ; Attention deficit hyperactivity disorder (ADHD), inattentive type, 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 and Borderline personality disorder F60.3 [facility] [address] [facility] [id number] [address] [place] [address] Jul, Dry skin dermatitis L85.3 [facility] [address] [facility] [id number] [address] [place] [address] Jul, [facility] [address] [facility] [id number] [address] [place] [address] Jul, Paranoid schizophrenia F20.0 [facility] [address] [facility] [id number] [address] [place] [address] May, Paranoid schizophrenia F20.0 ; Posttraumatic stress disorder F43.10 ; Attention deficit hyperactivity disorder (ADHD), inattentive type, 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 and Borderline personality disorder F60.3 [facility] [address] [facility] [id number] [address] [place] [address] May, [place] [id number] [id number] [address] [address] May, Paranoid schizophrenia F20.0 [facility] [address] [id number] [address] [place] [address], [place] [address] May, Paranoid schizophrenia F20.0 ; Posttraumatic stress disorder F43.10 ; Attention deficit hyperactivity disorder (ADHD), inattentive type, 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 and Borderline personality disorder F60.3 [facility] [address] [id number] [address] [place] [address], [place] [address] Apr, [facility] [address] [id number] [address] [place] [address], [place] [address] Apr, Paranoid schizophrenia F20.0 ; Posttraumatic stress disorder F43.10 ; Attention deficit hyperactivity disorder (ADHD), inattentive type, 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 and Borderline personality disorder F60.3 [facility] [address] [id number] [address] [place] [address] Apr, [facility] [address] [id number] [address] [place] [address] Apr, Schizoaffective disorder, de pressive type F25.1 and Borderline personality disorder F60.3 [facility] [address] [id number] [address] [place] [address] Apr, Paranoid schizophrenia F20.0 ; Posttraumatic stress disorder F43.10 ; Attention deficit hyperactivity disorder (ADHD), inattentive type, 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 and Borderline personality disorder F60.3 [facility] [address] [id number] [address] [place] [address] Apr, [facility] [address] [id number] [address] [place] [address] Apr, Paranoid schizophrenia F20.0 ; Posttraumatic stress disorder F43.10 ; Attention deficit hyperactivity disorder (ADHD), inattentive type, 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 and Borderline personality disorder F60.3 [facility] [address] [id number] [address] [place] [id number] Apr, [facility] [address] [id number] [address] [place] [address] Mar, Paranoid schizophrenia F20.0 [facility] [address] [id number] [address] [place] [address] Mar, [facility] [address] [id number] [address] [place] [address] Mar, Paranoid schizophrenia F20.0 ; Posttraumatic stress disorder F43.10 ; Attention deficit hyperactivity disorder (ADHD), inattentive type, 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 and Borderline personality disorder F60.3 [facility] [address] [id number] [address] [place] [address] February, Paranoid schizophrenia F20.0 [facility] [address] [id number] [address] [place] [address] February, Paranoid schizophrenia F20.0 ; Posttraumatic stress disorder F43.10 ; Attention deficit hyperactivity disorder (ADHD), inattentive type, 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 and Borderline personality disorder F60.3 [facility] [address] [id number] [address] [place] [address] February, Paranoid schizophrenia F20.0 ; Posttraumatic stress disorder F43.10 ; Attention deficit hyperactivity disorder (ADHD), inattentive type, 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 and Borderline personality disorder F60.3 [facility] [address] [id number] [address] [place] [address] February, [facility] [address] [id number] [address] [place] [address] February, Paranoid schizophrenia F20.0 [facility] [address] [id number] [address] [place] [address] February, Paranoid schizophrenia F20.0 [facility] [address] [id number] [address] [place] [address] February, Paranoid schizophrenia F20.0 ; Posttraumatic stress disorder F43.10 ; Attention deficit hyperactivity disorder (ADHD), inattentive type, 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 and Borderline personality disorder F60.3 [facility] [address] [id number] [address] [place] [address] Jan, Paranoid schizophrenia F20.0 ; Posttraumatic stress disorder F43.10 ; Attention deficit hyperactivity disorder (ADHD), inattentive type, 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 and Borderline personality disorder F60.3 [facility] [address] [id number] [address] [place] [address] Jan, Paranoid schizophrenia F20.0 [facility] [address] [id number] [address] [place] [address] Jan, Paranoid schizophrenia F20.0 [facility] [address] [facility] [id number] [address] [place] [address] Jan, Paranoid schizophrenia F20.0 ; Posttraumatic stress disorder F43.10 ; Attention deficit hyperactivity disorder (ADHD), inattentive type, 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 and Borderline personality disorder F60.3 [facility] [address] [id number] [address] [place] [address] Dec, [facility] [address] [id number] [address] [place] [address] Nov, Paranoid schizophrenia F20.0 ; Posttraumatic stress disorder F43.10 ; Attention deficit hyperactivity disorder (ADHD), inattentive type, 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 and Borderline personality disorder F60.3 [facility] [address] [id number] [address] [place] [address] Nov, [facility] [address] [facility] [id number] [address] [place] [address] Oct, Paranoid schizophrenia F20.0 [facility] [address] [facility] [id number] [address] [place] [address] Oct, Paranoid schizophrenia F20.0 ; Posttraumatic stress disorder F43.10 ; Attention deficit hyperactivity disorder (ADHD), inattentive type, 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 ; Borderline personality disorder F60.3 and Other correction (current) drug therapy Z79.899 [facility] [address] [id number] [address] [place] [address] Oct, [facility] [address] [facility] [id number] [address] [place] [address] Oct, [facility] [address] [facility] [id number] [address] [place] [phone] Sep, [facility] [address] [facility] [id number] [address] [place] [address] Sep, Paranoid schizophrenia F20.0 ; Posttraumatic stress disorder F43.10 ; Attention deficit hyperactivity disorder (ADHD), inattentive type, 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 and Borderline personality disorder F60.3 [facility] [address] [facility] [id number] [address] [place] [address] Sep, Paranoid schizophrenia F20.0 [facility] [address] [facility] [id number] [address] [place] [address] Aug, Paranoid schizophrenia F20.0 ; Posttraumatic stress disorder F43.10 ; Attention deficit hyperactivity disorder (ADHD), inattentive type, 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 and Borderline personality disorder F60.3 [facility] [address] [facility] [id number] [address] [place] [address] Aug, Paranoid schizophrenia F20.0 ; Posttraumatic stress disorder F43.10 ; Attention deficit hyperactivity disorder (ADHD), inattentive type, 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 and Borderline personality disorder F60.3 [facility] [address] [facility] [id number] [address] [place] [address] Aug, [facility] [address] [facility] [id number] [address] [place] [address] Jul, Paranoid schizophrenia F20.0 ; Posttraumatic stress disorder F43.10 ; Attention deficit hyperactivity disorder (ADHD), inattentive type, 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 and Borderline personality disorder F60.3 [facility] [address] [facility] [id number] [address] [place] [address] Jul, Paranoid schizophrenia F20.0 [facility] [address] [id number] [address] [place] [address] Jul, Paranoid schizophrenia F20.0 ; Posttraumatic stress disorder F43.10 ; Attention deficit hyperactivity disorder (ADHD), inattentive type, 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 and Borderline personality disorder F60.3 [facility] [address] [id number] [address] [place] [address] Jun, Paranoid schizophrenia F20.0 ; Posttraumatic stress disorder F43.10 ; Attention deficit hyperactivity disorder (ADHD), inattentive type, 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 and Borderline personality disorder F60.3 [facility] [address] [id number] [address] [place] [address] May, Other buttermaker continuous churn (current) dr ug therapy Z79.899 [facility] [address] [id number] [address] [place] [address] May, [facility] [address] [id number] [address] [place] [address] May, [facility] [address] [id number] [address] [place] [address] May, Attention deficit hyperactiv ity disorder (ADHD), inattentive type, mild F90.0 [facility] [address] [id number] [address] [place] [address] May, [facility] [address] [id number] [address] [place] [address] May, Attention deficit hyperactiv ity disorder (ADHD), inattentive type, mild F90.0 [facility] [address] [id number] [address] [place] [address] May, Paranoid schizophrenia F20.0 ; Posttraumatic stress disorder F43.10 ; Attention deficit hyperactivity disorder (ADHD), inattentive type, 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 and Other buttermaker continuous churn (current) drug therapy Z79.899 [facility] [address] [id number] [address] [place] [address] Apr, Paranoid schizophrenia F20.0 [facility] [address] [id number] [address] [place] [address] Apr, Paranoid schizophrenia F20.0 ; Posttraumatic stress disorder F43.10 and Attention deficit hyperactivity disorder (ADHD), inattentive type, 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 [facility] [address] [id number] [address] [place] [phone] February, [facility] [address] [id number] [address] [place] [address] February, Paranoid schizophrenia F20.0 ; Posttraumatic stress disorder F43.10 and Attention deficit hyperactivity disorder (ADHD), inattentive type, 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 [facility] [address] [id number] [address] [place] [address] February, Paranoid schizophrenia F20.0 ; Posttraumatic stress disorder F43.10 and Attention deficit hyperactivity disorder (ADHD), inattentive type, 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 [facility] [address] [id number] [address] [place] [address] Jan, Paranoid schizophrenia F20.0 ; Posttraumatic stress disorder F43.10 and Attention deficit hyperactivity disorder (ADHD), inattentive type, 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 [facility] [address] [id number] [address] [place] [id number] Dec, Dental examination Z01.20 [facility] [address] [id number] [address] [place] [address] [id number] Nov, Dental examination Z01.20 [facility] [address] [id number] [address] [place] [address] [id number] Nov, Dental examination Z01.20 [facility] [address] [id number] [address] [place] [id number] Nov, Dental caries K02.9 [facility] [address] [id number] [address] [place] [phone] 13 Nov, 2016 High risk medication use Z79 .899 [facility] [address] [id number] [address] [place] [address] Nov, Paranoid schizophrenia F20.0 ; Posttraumatic stress disorder F43.10 ; Attention deficit hyperactivity disorder (ADHD), inattentive type, 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 and Borderline personality disorder in adult F60.3 [facility] [address] [id number] [address] [place] [address] [id number] Oct, Dental caries K02.9 [facility] [address] [id number] [address] [place] [phone] Sep, Paranoid schizophrenia F20.0 ; Posttraumatic stress disorder F43.10 and Attention deficit hyperactivity disorder (ADHD), inattentive type, 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 [facility] [address] [facility] [id number] [address] [place] [address] Jul, [facility] [address] [id number] [address] [place] [address] Jun, Paranoid schizophrenia F20.0 ; Posttraumatic stress disorder F43.10 and Attention deficit hyperactivity disorder (ADHD), inattentive type, 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 [facility] [address] [id number] [address] [place] [id number] Jun, Dental examination Z01.20 [facility] [address] [id number] [address] [place] [phone] Jun, [facility] [address] [id number] [address] [place] [phone] May, Paranoid schizophrenia F20.0 [facility] [address] [id number] [address] [place] [phone] May, Paranoid schizophrenia F20.0 ; Posttraumatic stress disorder F43.10 and Attention deficit hyperactivity disorder (ADHD), inattentive type, 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 [facility] [address] [id number] [address] [place] [phone] May, [facility] [address] [id number] [address] [place] [address] May, Paranoid schizophrenia F20.0 [facility] [address] [id number] [address] [place] [phone] May, [facility] [address] [id number] [address] [place] [phone] May, Paranoid schizophrenia F20.0 [facility] [address] [id number] [address] [place] [address] May, Schizoaffective disorder, un specified F25.9 [facility] [address] [id number] [address] [place] [address] May, Schizoaffective disorder, un specified F25.9 [facility] [address] [id number] [address] [place] [phone] May, [facility] [address] [id number] [address] [place] [address] May, Paranoid schizophrenia F20.0 [facility] [address] [id number] [address] [place] [id number] May, Paranoid schizophrenia F20.0 ; Posttraumatic stress disorder F43.10 and Attention deficit hyperactivity disorder (ADHD), inattentive type, 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 [facility] [address] [id number] [address] [place] [address], [place] [address] Mar, [facility] [address] [id number] [address] [place] [address], [place] [address] Mar, Paranoid schizophrenia F20.0 ; Posttraumatic stress disorder F43.10 and Attention deficit hyperactivity disorder (ADHD), inattentive type, 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 [facility] [address] [id number] [address] [place] [address], [place] [address] Mar, Paranoid schizophrenia F20.0 [facility] [address] [id number] [address] [place] [address], [place] [address] Mar, Paranoid schizophrenia F20.0 ; Attention deficit hyperactivity disorder (ADHD), inattentive type, 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 and Posttraumatic stress disorder F43.10 [facility] [address] [id number] [address] [place] [address] Mar, [facility] [address] [id number] [address] [place] [address], [place] [address] Mar, Paranoid schizophrenia F20.0 ; Posttraumatic stress disorder F43.10 and Attention deficit hyperactivity disorder (ADHD), inattentive type, 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 [facility] [address] [id number] [address] [place] [address], [place] [address] February, [facility] [address] [id number] [address] [place] [phone] February, [facility] [address] [id number] [address] [place] [address], [place] [address] February, [facility] [address] [id number] [address] [place] [phone] February, [facility] [address] [id number] [address] [place] [address], [place] [address] Jan, Paranoid schizophrenia F20.0 [facility] [address] [id number] [address] [place] [address] [id number] Jan, Dental examination Z01.20 [facility] [address] [id number] [address] [place] [address] [id number] Jan, Dental caries K02.9 [facility] [address] [id number] [address] [place] [address] [id number] Jan, Dental examination Z01.20 [facility] [facility] [address] [id number] [address] [place] [id number] Dec, Encounter for dental examina tion Z01.20 [facility] [address] [id number] [address] [place] [address] Dec, Paranoid schizophrenia F20.0 [facility] [address] [id number] [address] [place] [address] [id number] Dec, Dental examination Z01.20 [facility] [address] [id number] [address] [place] [address] Dec, [facility] [address] [id number] [address] [place] [address] Dec, Paranoid schizophrenia F20.0 ; Posttraumatic stress disorder F43.10 and Attention deficit hyperactivity disorder (ADHD), inattentive type, 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 [facility] [address] [id number] [address] [place] [address] Nov, Schizoaffective disorder, un specified F25.9 [facility] [address] [id number] [address] [place] [address] Oct, Paranoid schizophrenia F20.0 [facility] [address] [id number] [address] [place] [address] Oct, [facility] [address] [id number] [address] [place] [address] Sep, Paranoid schizophrenia F20.0 ; Posttraumatic stress disorder F43.10 and Attention deficit hyperactivity disorder (ADHD), inattentive type, 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 [facility] [address] [facility] [id number] [address] [place] [address] Sep, [facility] [address] [facility] [id number] [address] [place] [address] Sep, Paranoid schizophrenia F20.0 ; Posttraumatic stress disorder F43.10 and Attention deficit hyperactivity disorder (ADHD), inattentive type, 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 [facility] [address] [facility] [id number] [address] [place] [address] Aug, Paranoid schizophrenia F20.0 [facility] [address] [facility] [id number] [address] [place] [address] Aug, [facility] [address] [facility] [id number] [address] [place] [address] Aug, Posttraumatic stress disorde r F43.10 ; Paranoid schizophrenia F20.0 and Attention deficit hyperactivity disorder (ADHD), inattentive type, 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 [facility] [address] [facility] [id number] [address] [place] [address] Jul, Bipolar disorder, unspecifie d F31.9 [facility] [address] [facility] [id number] [address] [place] [address] Jul, [facility] [address] [facility] [id number] [address] [place] [address] Jun, [facility] [address] [place] [id number] [address] [place] [address] Jun, Schizoaffective disorder, ch ronic 295.72 ; Posttraumatic stress disorder 309.81 and Attention deficit disorder of childhood without mention of hyperactivity 314.00 [facility] [address] [facility] [id number] [address] [place] [address] May, [facility] [address] [facility] [id number] [address] [place] [address] May, [facility] [address] [facility] [id number] [address] [place] [address] May, Schizoaffective disorder, ch ronic 295.72 ; Posttraumatic stress disorder 309.81 ; Attention deficit disorder of childhood without mention of hyperactivity 314.00 and Bipolar disorder, unspecified 296.80 [facility] [address] [id number] [address] [place] [address] Apr, Schizoaffective disorder, ch ronic 295.72 [facility] [address] [id number] [address] [place] [address] Apr, [facility] [address] [id number] [address] [place] [address] Apr, Schizoaffective disorder, ch ronic 295.72 ; Posttraumatic stress disorder 309.81 and Attention deficit disorder of childhood without mention of hyperactivity 314.00 [facility] [address] [id number] [address] [place] [address] Mar, Disorganized schizophrenia, 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 [facility] [address] [id number] [address] [place] [address] Mar, [facility] [address] [id number] [address] [place] [address] Mar, [facility] [address] [id number] [address] [place] [address] Mar, [facility] [address] [facility] [id number] [address] [place] [address] Mar, [facility] [address] [id number] [address] [place] [address] February, Schizoaffective disorder, ch ronic 295.72 [facility] [address] [id number] [address] [place] [address] February, [facility] [address] [id number] [address] [place] [address] February, Attention 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 ; Posttraumatic stress disorder 309.81 and Schizoaffective disorder, chronic 295.72 [facility] [address] [id number] [facility] [address] 29 Jan, 2015 [facility] [address] [id number] [address] [place] [address], [place] [address] 14 Jan, 2015 [facility] [address] [id number] [address] [place] [address], [place] [address] Jan, [facility] [address] [id number] [address] [place] [address], [place] [address] Dec, [facility] [address] [id number] [address] [place] [address], [place] [address] Dec, [facility] [address] [id number] [address] [place] [address], [place] [address] Dec, [facility] [address] [id number] [address] [place] [address], [place] [address] Dec, [facility] [address] [id number] [address] [place] [address], [place] [address] Dec, [facility] [address] [id number] [address] [place] [address], [place] [address] Dec, [facility] [address] [id number] [address] [place] [address], [place] [address] Dec, [facility] [address] [id number] [address] [place] [address], [place] [address] Dec, [facility] [address] [id number] [address] [place] [address], [place] [address] Nov, [facility] [address] [id number] [address] [place] [address], [place] [address] Nov, [facility] [address] [id number] [address] [place] [address], [place] [address] Nov, [facility] [address] [id number] [address] [place] [address], [place] [address] Nov, [facility] [address] [id number] [address] [place] [address], [place] [address] Nov, [facility] [address] [id number] [address] [place] [address], [place] [address] Nov, [facility] [address] [id number] [address] [place] [address], [place] [address] Nov, [facility] [address] [id number] [address] [place] [address], [place] [address] Nov, [facility] [address] [id number] [address] [place] [address], [place] [address] Nov, [facility] [address] [id number] [address] [place] [address], [place] [address] Nov, [facility] [address] [id number] [address] [place] [address], [place] [address] Oct, [facility] [address] [id number] [address] [place] [address], [place] [address] Oct, [facility] [address] [id number] [address] [place] [address], [place] [address] Oct, [facility] [address] [id number] [address] [place] [address], [place] [address] Oct, [facility] [address] [id number] [address] [place] [address], [place] [address] Oct, [facility] [address] [id number] [address] [place] [address], [place] [address] Oct, [facility] [address] [id number] [address] [place] [address], [place] [address] Oct, [facility] [address] [id number] [address] [place] [address], [place] [address] Sep, [facility] [address] [id number] [address] [place] [address], [place] [address] Sep, [facility] [address] [id number] [address] [place] [address], [place] [address] Sep, [facility] [address] [id number] [address] [place] [address], [place] [address] 15 Sep, 2014 [facility] [address] [id number] [address] [place] [address], [place] [address] Aug, [facility] [address] [id number] [address] [place] [address], [place] [address] Aug, [facility] [address] [id number] [address] [place] [address], [place] [address] Aug, [facility] [address] [id number] [address] [place] [address], [place] [address] Aug, [facility] [address] [id number] [address] [place] [address], [place] [address] Aug, [facility] [address] [id number] [address] [place] [address], [place] [address] Aug, [facility] [address] [id number] [address] [place] [address], [place] [address] Jul, [facility] [address] [id number] [address] [place] [address], [place] [address] Jul, [facility] [address] [id number] [address] [place] [address], [place] [address] Jul, [facility] [address] [id number] [address] [place] [address], [place] [address] 24 Jul, 2014 [facility] [address] [id number] [address] [place] [address], [place] [address] Jul, [facility] [address] [id number] [address] [place] [address], [place] [address] 15 Jul, 2014 [facility] [address] [id number] [address] [place] [address], [place] [address] 27 Jun, 2014 [facility] [address] [id number] [address] [place] [address], [place] [address] 27 Jun, 2014 [facility] [address] [id number] [address] [place] [address], [place] [address] 26 Jun, 2014 [facility] [address] [id number] [address] [place] [address], [place] [address] 26 Jun, 2013 [facility] [address] [id number] [address] [place] [address], [place] [address] Jun, 2013 [facility] [address] [id number] [address] [place] [address], [place] [address] Jun, 2013 [facility] [address] [id number] [address] [place] [address], [place] [address] 16 Jun, 2013 [facility] [address] [id number] [address] [place] [address], [place] [address] 16 Jun, 2013 [facility] [address] [id number] [address] [place] [address], [place] [address] Jun, 2013 [facility] [address] [id number] [address] [place] [address], [place] [address] Jun, 2013 [facility] [address] [id number] [address] [place] [address], [place] [address] Jun, 2013 [facility] [address] [id number] [address] [place] [address], [place] [address] May, [facility] [address] [id number] [address] [place] [address], [place] [address] May, [facility] [address] [id number] [address] [place] [address], [place] [address] May, [facility] [address] [id number] [address] [place] [address], [place] [address] May, [facility] [address] [id number] [address] [place] [address], [place] [address] May, [facility] [address] [id number] [address] [place] [address], [place] [address] May, [facility] [address] [id number] [address] [place] [address], [place] [address] May, [facility] [address] [id number] [address] [place] [address], [place] [address] May, [facility] [address] [id number] [address] [place] [address], [place] [address] May, [facility] [address] [id number] [address] [place] [address], [place] [address] May, [facility] [address] [id number] [address] [place] [address], [place] [address] Apr, [facility] [address] [id number] [address] [place] [address], [place] [address] Apr, [facility] [address] [id number] [address] [place] [address], [place] [address] Apr, [facility] [address] [id number] [address] [place] [address], [place] [address] Apr, [facility] [address] [id number] [address] [place] [address], [place] [address] Apr, [facility] [address] [id number] [address] [place] [address], [place] [address] Apr, [facility] [address] [id number] [address] [place] [address], [place] [address] Apr, [facility] [address] [id number] [address] [place] [address], [place] [address] Apr, [facility] [address] [id number] [address] [place] [address], [place] [address] Apr, [facility] [address] [id number] [address] [place] [address], [place] [address] Apr, [facility] [address] [id number] [address] [place] [address], [place] [address] Mar, [facility] [address] [id number] [address] [place] [address], [place] [address] Mar, [facility] [address] [id number] [address] [place] [address], [place] [address] Mar, [facility] [address] [id number] [facility] [address] 24 Mar, 2014 [facility] [address] [id number] [facility] [address] 20 Mar, 2014 [facility] [address] [id number] [address] [place] [address], [place] [address] 18 Mar, 2014 [facility] [address] [id number] [address] [place] [address], [place] [address] 18 Mar, 2014 [facility] [address] [id number] [address] [place] [address], [place] [address] 16 Mar, 2014 [facility] [address] [id number] [address] [place] [address], [place] [address] 16 Mar, 2014 [facility] [address] [id number] [address] [place] [address], [place] [address] 13 Mar, 2014 [facility] [address] [id number] [address] [place] [address], [place] [address] 13 Mar, 2014 [facility] [address] [id number] [address] [place] [address], [place] [address] 11 Mar, 2014 [facility] [address] [id number] [address] [place] [address], [place] [address] Mar, [facility] [address] [id number] [address] [place] [address], [place] [address] 10 Mar, 2014 [facility] [address] [id number] [address] [place] [address], [place] [address] 09 Mar, 2014 [facility] [address] [id number] [address] [place] [address], [place] [address] 09 Mar, 2014 [facility] [address] [id number] [address] [place] [address], [place] [address] Mar, [facility] [address] [id number] [address] [place] [address], [place] [address] 09 Mar, 2014 [facility] [address] [id number] [address] [place] [address], [place] [address] Mar, [facility] [address] [id number] [facility] [address] Mar, [facility] [address] [id number] [address] [place] [address], [place] [address] February, [facility] [address] [id number] [address] [place] [address], [place] [address] February, [facility] [address] [id number] [address] [place] [address], [place] [address] February, [facility] [address] [id number] [address] [place] [address], [place] [address] February, [facility] [address] [id number] [address] [place] [address], [place] [address] February, [facility] [address] [id number] [address] [place] [address], [place] [address] February, [facility] [address] [id number] [address] [place] [address], [place] [address] February, [facility] [address] [id number] [address] [place] [address], [place] [address] February, [facility] [address] [id number] [address] [place] [address], [place] [address] February, [facility] [address] [id number] [address] [place] [address], [place] [address] February, [facility] [address] [id number] [address] [place] [address], [place] [address] February, [facility] [address] [id number] [address] [place] [address], [place] [address] February, [facility] [address] [id number] [address] [place] [address], [place] [address] February, [facility] [address] [id number] [address] [place] [address], [place] [address] February, [facility] [address] [id number] [address] [place] [address], [place] [address] February, [facility] [address] [id number] [address] [place] [address], [place] [address] February, [facility] [address] [id number] [address] [place] [address], [place] [address] February, [facility] [address] [id number] [address] [place] [address], [place] [address] February, [facility] [address] [id number] [address] [place] [address], [place] [address] February, [facility] [address] [id number] [address] [place] [address], [place] [address] February, [facility] [address] [id number] [address] [place] [address], [place] [address] February, [facility] [address] [id number] [address] [place] [address], [place] [address] Jan, [facility] [address] [id number] [address] [place] [address], [place] [address] Jan, [facility] [address] [id number] [address] [place] [address], [place] [address] Jan, [facility] [address] [id number] [address] [place] [address], [place] [address] Jan, [facility] [address] [id number] [address] [place] [address], [place] [address] Jan, [facility] [address] [id number] [address] [place] [address], [place] [address] Jan, [facility] [address] [id number] [address] [place] [address], [place] [address] Jan, [facility] [address] [id number] [address] [place] [address], [place] [address] Jan, [facility] [address] [id number] [address] [place] [address], [place] [address] Dec, [facility] [address] [id number] [facility] [address] 20 Dec, 2013 [facility] [address] [id number] [address] [place] [address], [place] [address] 20 Dec, 2013 [facility] [address] [id number] [facility] [address] 19 Dec, 2013 [facility] [address] [id number] [address] [place] [address], [place] [address] 19 Dec, 2013 [facility] [address] [id number] [address] [place] [address], [place] [address] 15 Dec, 2013 [facility] [address] [id number] [address] [place] [address], [place] [address] 15 Dec, 2013 [facility] [address] [id number] [address] [place] [address], [place] [address] 11 Dec, 2013 [facility] [address] [id number] [address] [place] [address], [place] [address] 10 Dec, 2013 [facility] [address] [id number] [address] [place] [address], [place] [address] 10 Dec, 2013 [facility] [address] [id number] [address] [place] [address], [place] [address] 18 Nov, 2013 [facility] [address] [id number] [address] [place] [address], [place] [address] 17 Nov, 2013 [facility] [address] [id number] [address] [place] [address], [place] [address] 17 Nov, 2013 [facility] [address] [id number] [address] [place] [address], [place] [address] 05 Nov, 2013 [facility] [address] [id number] [address] [place] [address], [place] [address] 05 Nov, 2013 [facility] [address] [id number] [address] [place] [address], [place] [address] Oct, [facility] [address] [id number] [address] [place] [address] Oct, [facility] [address] [id number] [address] [place] [address], [place] [address] Oct, [facility] [address] [id number] [address] [place] [address], [place] [address] Sep, [facility] [address] [id number] [address] [place] [address], [place] [address] Sep, [facility] [address] [id number] [address] [place] [address], [place] [address] Sep, [facility] [address] [id number] [address] [place] [address], [place] [address] Sep, [facility] [address] [id number] [address] [place] [address], [place] [address] Aug, [facility] [address] [id number] [address] [place] [address], [place] [address] Aug, [facility] [address] [id number] [address] [place] [address], [place] [address] Jul, [facility] [address] [id number] [address] [place] [address], [place] [address] Jul, [facility] [address] [id number] [address] [place] [address], [place] [address] Jul, [facility] [address] [id number] [address] [place] [address], [place] [address] Jul, [facility] [address] [id number] [address] [place] [address] Jul, [facility] [address] [id number] [address] [place] [address], [place] [address] Jun, [facility] [address] [id number] [address] [place] [address], [place] [address] Jun, [facility] [address] [id number] [address] [place] [address], [place] [address] 19 Jun, 2013 [facility] [address] [id number] [address] [place] [address], [place] [address] 18 Jun, 2013 [facility] [address] [id number] [address] [place] [address], [place] [address] 16 Jun, 2013 [facility] [address] [id number] [address] [place] [address], [place] [address] 12 Jun, 2013 [facility] [address] [id number] [address] [place] [address], [place] [address] 11 Jun, 2013 [facility] [address] [id number] [address] [place] [address], [place] [address] 30 May, 2013 [facility] [address] [id number] [address] [place] [address], [place] [address] May, [facility] [facility] [address] [id number] [address] [place] [address], [place] [address] Apr, [facility] [address] [id number] [address] [place] [address], [place] [address] Apr, [facility] [address] [id number] [address] [place] [address], [place] [address] Apr, [facility] [address] [id number] [address] [place] [address], [place] [address] Mar, [facility] [address] [id number] [address] [place] [address], [place] [address] Mar, [facility] [address] [id number] [address] [place] [address], [place] [address] February, [facility] [address] [id number] [address] [place] [address], [place] [address] February, [facility] [address] [id number] [address] [place] [address], [place] [address] February, [facility] [address] [id number] [address] [place] [address], [place] [address] February, [facility] [address] [id number] [address] [place] [address], [place] [address] 19 Jan, 2013 [facility] [address] [id number] [address] [place] [address], [place] [address] 17 Jan, 2013 [facility] [address] [id number] [address] [place] [address], [place] [address] 16 Jan, 2013 [facility] [address] [id number] [address] [place] [address], [place] [address] 29 Dec, 2012 [facility] [address] [id number] [address] [place] [address], [place] [address] Dec, [facility] [address] [id number] [address] [place] [address], [place] [address] Dec, [facility] [address] [id number] [address] [place] [address], [place] [address] 08 Dec, 2012 [facility] [address] [id number] [address] [place] [address], [place] [address] Nov, [facility] [address] [id number] [address] [place] [address], [place] [address] Nov, [facility] [address] [id number] [address] [place] [address], [place] [address] Oct, [facility] [address] [id number] [address] [place] [address], [place] [address] Oct, [facility] [address] [id number] [address] [place] [address], [place] [address] Oct, [facility] [address] [id number] [address] [place] [address], [place] [address] Oct, [facility] [address] [id number] [address] [place] [address], [place] [address] Aug, [facility] [address] [id number] [address] [place] [address], [place] [address] Aug, [facility] [address] [id number] [address] [place] [address], [place] [address] 18 Jun, 2012 [facility] [address] [id number] [address] [place] [address], [place] [address] May, [facility] [address] [id number] [address] [place] [address], [place] [address] May, [facility] [address] [id number] [address] [place] [address], [place] [address] Apr, [facility] [address] [id number] [address] [place] [address], [place] [address] Apr, [facility] [address] [id number] [address] [place] [address], [place] [address] Apr, [facility] [address] [id number] [address] [place] [address], [place] [address] Mar, [facility] [address] [id number] [address] [place] [address], [place] [address] Mar, [facility] [address] [id number] [address] [place] [address], [place] [address] Mar, [facility] [address] [id number] [address] [place] [address], [place] [address] Mar, [facility] [address] [id number] [address] [place] [address], [place] [address] Mar, [facility] [address] [id number] [address] [place] [address], [place] [address] February, [facility] [address] [id number] [address] [place] [address], [place] [address] February, [facility] [address] [id number] [address] [place] [address], [place] [address] February, [facility] [address] [id number] [address] [place] [address], [place] [address] February, [facility] [address] [id number] [address] [place] [address], [place] [address] February, [facility] [address] [id number] [address] [place] [address], [place] [address] February, [facility] [address] [id number] [address] [place] [address], [place] [address] February, [facility] [address] [id number] [address] [place] [address], [place] [address] Jan, [facility] [address] [id number] [address] [place] [address], [place] [address] Jan, [facility] [address] [id number] [address] [place] [address], [place] [address] 17 Jan, 2012 [facility] [address] [id number] [address] [place] [address], [place] [address] 13 Jan, 2012 [facility] [address] [id number] [address] [place] [address], [place] [address] Jan, [facility] [address] [id number] [address] [place] [address], [place] [address] Jan, [facility] [place] [address] [id number] [address] [place] [address], [place] [address] 30 Dec, 2011 [facility] [place] [address] [id number] [address] [place] [address], [place] [address] 24 Dec, 2011 [facility] [place] [address] [id number] [address] [place] [address], [place] [address] Dec, [facility] [address] [id number] [address] [place] [address], [place] [address] Dec, [facility] [address] [id number] [address] [place] [address], [place] [address] Dec, [facility] [address] [id number] [address] [place] [address], [place] [address] Nov, [facility] [address] [id number] [address] [place] [address], [place] [address] Nov, [facility] [address] [id number] [address] [place] [address], [place] [address] Nov, [facility] [address] [id number] [address] [place] [address] 14 Nov, 2011 [facility] [place] [address] [id number] [address] [place] [address], [place] [address] 10 Nov, 2011 [facility] [address] [id number] [address] [place] [address], [place] [address] Nov, [facility] [place] [address] [id number] [address] [place] [address], [place] [address] Oct, [facility] [address] [id number] [address] [place] [address], [place] [address] Oct, [facility] [place] [address] [id number] [address] [place] [address], [place] [address] Oct, [facility] [place] [address] [id number] [address] [place] [address], [place] [address] Oct, [facility] [place] [address] [id number] [address] [place] [address], [place] [address] Oct, [facility] [address] [id number] [address] [place] [address], [place] [address] Sep, [facility] [place] [address] [id number] [address] [place] [address], [place] [address] Sep, [facility] [address] [id number] [address] [place] [address], [place] [address] Sep, [facility] [place] [address] [id number] [address] [place] [address], [place] [address] 14 Sep, 2011 [facility] [address] [id number] [address] [place] [address], [place] [address] 14 Sep, 2011 [facility] [address] [id number] [address] [place] [address], [place] [address] 13 Sep, 2011 [facility] [address] [id number] [address] [place] [address], [place] [address] 12 Sep, 2011 [facility] [address] [id number] [address] [place] [address], [place] [address] 09 Sep, 2011 [facility] [address] [id number] [address] [place] [address], [place] [address] Sep, [facility] [address] [id number] [address] [place] [address], [place] [address] Aug, [facility] [address] [id number] [address] [place] [address], [place] [address] Aug, [facility] [address] [id number] [address] [place] [address], [place] [address] Aug, [facility] [address] [id number] [address] [place] [address], [place] [address] Aug, [facility] [address] [id number] [address] [place] [address], [place] [address] Aug, [facility] [address] [id number] [address] [place] [address], [place] [address] Aug, [facility] [address] [id number] [address] [place] [address], [place] [address] Aug, [facility] [address] [id number] [address] [place] [address], [place] [address] Aug, [facility] [address] [id number] [address] [place] [address], [place] [address] Aug, [facility] [address] [id number] [address] [place] [address], [place] [address] Aug, [facility] [address] [id number] [address] [place] [address], [place] [address] Aug, [facility] [address] [id number] [address] [place] [address], [place] [address] Aug, [facility] [address] [id number] [address] [place] [address], [place] [address] Jul, [facility] [address] [id number] [address] [place] [address], [place] [address] Jul, [facility] [address] [id number] [address] [address] Jul, [facility] [address] [id number] [address] [place] [address] Jul, [facility] [address] [id number] [address] [place] [address] Jul, [facility] [address] [id number] [address] [place] [address] Jul, [facility] [address] [id number] [address] [place] [address] Jul, [facility] [address] [id number] [address] [place] [address] Jul, [facility] [address] [id number] [address] [place] [address] Jul, [facility] [address] [id number] [address] [place] [address] Jul, [facility] [address] [id number] [address] [place] [address] Nov, [facility] [address] [id number] [address] [place] [address] Aug, [facility] [address] [id number] [address] [place] [address] Aug, [facility] [address] [id number] [address] [place] [address] Aug, [facility] [address] [id number] [address] [place] [address] Aug, [facility] [address] [id number] [address] [place] [address] Jul, IMMUNIZATIONS No Known Immunizations SOCIAL HISTORY [...] Suicide attempt by hanging 2015 Hospitalization History [facility] 01/30/2018-02/10/20 08 Hospitalization History [email or web address] 05/04/18-
--- OUTSIDE RECORDS SUMMARY | 2020-04-04 01:57 | XMS REPORT ---
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 Name Role Phone BRYAN Roca Unavailable PROBLEMS Type Condition ICD9-CM Code CNU51-GW Code Onset Dates Condition S tatus SNOMED Code Problem Posttraumatic stress disorder 309.81 Active 25745621 Problem Attention 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 Active 60336400 Problem Generalized anxiety disorder 300.02 A ctive 16235241 Problem Obsessive-compulsive disorders 300.3 Active 507387597 Problem Catatonic schizophrenia, 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 067760632 Problem Disorganized schizophrenia, 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 61526169 Problem Paranoid schizophrenia F20.0 Active 37257823 Problem Borderline personality disorder F60.3 Active 22481084 Problem Paranoid schizophrenia, unspecified condition 295.30 Active 83809342 Problem Schizoaffective disorder, depressive type F25.1 Active 27090210 Problem Bipolar disorder, unspecified 296.80 Active 29952795 Problem Schizoaffective disorder, unspecified F25.9 Active 79789978 Problem Attention deficit hyperactivity disorder (ADHD), inattentive type, 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 and Borderline personality disorder F60.3 [facility] [address] [id number] [address] [place] [phone] Apr, Paranoid schizophrenia F20.0 [facility] [address] [id number] [address] [place] [phone] Apr, Paranoid schizophrenia F20.0 ; Posttraumatic stress disorder F43.10 ; Attention deficit hyperactivity disorder (ADHD), inattentive type, 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 [id number] [address] [place] [phone] Aug, [facility] [address] 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 [id number] [address] [place] [phone] Jul, Dry skin dermatitis L85.3 [facility] [address] [facility] [id number] [address] [place] [phone] Jul, [facility] [address] [facility] [id number] [address] [place] [phone] Jul, Paranoid schizophrenia F20.0 [facility] [address] 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 and Borderline personality disorder F60.3 [facility] [address] [id number] [address] [place] [phone] May, [facility] [address] [id number] [address] [place] [phone] May, Paranoid schizophrenia F20.0 [facility] [address] [id number] [address] [place] [phone] May, Paranoid schizophrenia F20.0 ; Posttraumatic stress disorder F43.10 ; Attention deficit hyperactivity disorder (ADHD), inattentive type, 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 and Borderline personality disorder F60.3 [facility] [address] [id number] [address] [place] [phone] Apr, [facility] [address] [id number] [address] [place] [phone] Apr, Paranoid schizophrenia F20.0 ; Posttraumatic stress disorder F43.10 ; Attention deficit hyperactivity disorder (ADHD), inattentive type, 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 and Borderline personality disorder F60.3 [facility] [address] [id number] [address] [place] [phone] Apr, [facility] [address] [id number] [address] [place] [phone] Apr, Schizoaffective disorder, de pressive type F25.1 and Borderline personality disorder F60.3 [facility] [address] [id number] [address] [place] [phone] Apr, Paranoid schizophrenia F20.0 ; Posttraumatic stress disorder F43.10 ; Attention deficit hyperactivity disorder (ADHD), inattentive type, 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 and Borderline personality disorder F60.3 [facility] [address] [id number] [address] [place] [phone] Apr, [facility] [address] [id number] [address] [place] [phone] Apr, Paranoid schizophrenia F20.0 ; Posttraumatic stress disorder F43.10 ; Attention deficit hyperactivity disorder (ADHD), inattentive type, 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 and Borderline personality disorder F60.3 [facility] [address] [id number] [address] [place] [phone] Apr, [facility] [address] [id number] [address] [place] [phone] Mar, Paranoid schizophrenia F20.0 [facility] [address] [id number] [address] [place] [phone] Mar, [facility] [address] [id number] [address] [place] [phone] Mar, Paranoid schizophrenia F20.0 ; Posttraumatic stress disorder F43.10 ; Attention deficit hyperactivity disorder (ADHD), inattentive type, 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 and Borderline personality disorder F60.3 [facility] [address] [id number] [address] [place] [phone] February, Paranoid schizophrenia F20.0 [facility] [address] [id number] [address] [place] [phone] February, Paranoid schizophrenia F20.0 ; Posttraumatic stress disorder F43.10 ; Attention deficit hyperactivity disorder (ADHD), inattentive type, 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 and Borderline personality disorder F60.3 [facility] [address] [id number] [address] [place] [phone] February, Paranoid schizophrenia F20.0 ; Posttraumatic stress disorder F43.10 ; Attention deficit hyperactivity disorder (ADHD), inattentive type, 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 and Borderline personality disorder F60.3 [facility] [address] [id number] [address] [place] [phone] February, [facility] [address] [id number] [address] [place] [phone] February, Paranoid schizophrenia F20.0 [facility] [address] [id number] [address] [place] [phone] February, Paranoid schizophrenia F20.0 [facility] [address] [id number] [address] [place] [phone] February, Paranoid schizophrenia F20.0 ; Posttraumatic stress disorder F43.10 ; Attention deficit hyperactivity disorder (ADHD), inattentive type, 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 [id number] [address] [place] [phone] Jan, Paranoid schizophrenia F20.0 [facility] [address] [facility] [id number] [address] [place] [phone] Jan, Paranoid schizophrenia F20.0 [facility] [address] 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 [id number] [address] [place] [phone] Dec, [facility] [address] 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 [id number] [address] [place] [phone] Nov, [facility] [address] 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 Z79.899 [facility] [address] [id number] [address] [place] [phone] Oct, [facility] [address] [id number] [address] [place] [phone] Oct, [facility] [address] [id number] [address] [place] [phone] Sep, [facility] [address] [id number] [address] [place] [phone] Sep, Paranoid schizophrenia F20.0 ; Posttraumatic stress disorder F43.10 ; Attention deficit hyperactivity disorder (ADHD), inattentive type, 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 and Borderline personality disorder F60.3 [facility] [address] [id number] [address] [place] [phone] Sep, Paranoid schizophrenia F20.0 [facility] [address] [id number] [address] [place] [phone] Aug, Paranoid schizophrenia F20.0 ; Posttraumatic stress disorder F43.10 ; Attention deficit hyperactivity disorder (ADHD), inattentive type, 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 and Borderline personality disorder F60.3 [facility] [address] [id number] [address] [place] [phone] Aug, Paranoid schizophrenia F20.0 ; Posttraumatic stress disorder F43.10 ; Attention deficit hyperactivity disorder (ADHD), inattentive type, 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 [id number] [address] [place] [phone] May, [facility] [address] [facility] [id number] [address] [place] [phone] May, [facility] [address] [facility] [id number] [address] [place] [phone] May, Attention deficit hyperactiv ity disorder (ADHD), inattentive type, 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 [id number] [address] [place] [phone] May, [facility] [address] [facility] [id number] [address] [place] [phone] May, Attention deficit hyperactiv ity disorder (ADHD), inattentive type, 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 [id number] [address] [place] [phone] February, [facility] [address] 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 [facility] [address] [id number] [address] [place] [id number] Dec, Dental examination Z01.20 [facility] [address] [id number] [address] [place] [id number] Nov, Dental examination Z01.20 [facility] [address] [id number] [address] [place] [phone] Nov, Dental examination Z01.20 [facility] [address] [id number] [address] [place] [id number] 14 Nov, 2016 Dental caries K02.9 [facility] [address] [facility] [id number] [address] [place] [phone] 13 Nov, 2016 High risk medication use Z79 .899 [facility] [address] 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 [id number] [address] [place] [phone] Aug, Strep throat J02.0 and Cough R05 [facility] [address] [facility] [id number] [address] [place] [phone] Aug, [facility] [address] 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 [facility] [address] [id number] [address] [place] [address] [id number] Jun, Dental examination Z01.20 [facility] [address] [id number] [address] [place] [phone] Jun, [facility] [address] [id number] [address] [place] [phone] May, Paranoid schizophrenia F20.0 [facility] [address] [id number] [address] [place] [phone] May, Paranoid schizophrenia F20.0 ; Posttraumatic stress disorder F43.10 and Attention deficit hyperactivity disorder (ADHD), inattentive type, 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 [facility] [address] [id number] [address] [place] [phone] May, [facility] [address] [id number] [address] [place] [phone] May, Paranoid schizophrenia F20.0 [facility] [address] [id number] [address] [place] [phone] May, [facility] [address] [id number] [address] [place] [phone] May, Paranoid schizophrenia F20.0 [facility] [address] [id number] [address] [place] [phone] May, Schizoaffective disorder, un specified F25.9 [facility] [address] [id number] [address] [place] [phone] May, Schizoaffective disorder, un specified F25.9 [facility] [address] [id number] [address] [place] [phone] May, [facility] [address] [id number] [address] [place] [phone] May, Paranoid schizophrenia F20.0 [facility] [address] [id number] [address] [place] [phone] May, Paranoid schizophrenia F20.0 ; Posttraumatic stress disorder F43.10 and Attention deficit hyperactivity disorder (ADHD), inattentive type, 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 [facility] [address] [id number] [address] [place] [phone] Mar, [facility] [address] [id number] [address] [place] [phone] Mar, Paranoid schizophrenia F20.0 ; Posttraumatic stress disorder F43.10 and Attention deficit hyperactivity disorder (ADHD), inattentive type, 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 [facility] [address] [id number] [address] [place] [phone] Mar, Paranoid schizophrenia F20.0 [facility] [address] [id number] [address] [place] [phone] Mar, Paranoid schizophrenia F20.0 ; Attention deficit hyperactivity disorder (ADHD), inattentive type, 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 and Posttraumatic stress disorder F43.10 [facility] [address] [id number] [address] [place] [phone] Mar, [facility] [address] [id number] [address] [place] [phone] Mar, Paranoid schizophrenia F20.0 ; Posttraumatic stress disorder F43.10 and Attention deficit hyperactivity disorder (ADHD), inattentive type, 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 [facility] [address] [id number] [address] [place] [phone] February, [facility] [address] [id number] [address] [place] [phone] February, [facility] [address] [id number] [address] [place] [phone] February, [facility] [address] [id number] [address] [place] [phone] February, [facility] [address] [id number] 08 [place] [id number] Jan, Paranoid schizophrenia F20.0 [facility] [address] [id number] [address] [place] [address] [id number] Jan, Dental examination Z01.20 [facility] [address] [id number] [address] [place] [address] [id number] Jan, Dental caries K02.9 [facility] [address] [id number] [address] [place] [id number] Jan, Dental examination Z01.20 [facility] [address] [id number] [place] [id number] Dec, Encounter for dental examina tion Z01.20 [facility] [address] [id number] [address] [place] [phone] Dec, Paranoid schizophrenia F20.0 [facility] [address] [id number] [place] [address] [id number] Dec, Dental examination Z01.20 [facility] [address] [id number] [address] [place] [phone] Dec, [facility] [address] [id number] [address] [place] [phone] Dec, Paranoid schizophrenia F20.0 ; Posttraumatic stress disorder F43.10 and Attention deficit hyperactivity disorder (ADHD), inattentive type, 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 [id number] [address] [place] [phone] Sep, [facility] [address] 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 [id number] [address] [place] [phone] Aug, Paranoid schizophrenia F20.0 [facility] [address] [facility] [id number] [address] [place] [id number] Aug, [facility] [address] 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 [id number] [address] [place] [phone] Jul, [facility] [address] [facility] [id number] [address] [place] [phone] Jun, [facility] [address] [facility] [id number] [address] [place] [phone] Jun, Schizoaffective disorder, ch ronic 295.72 ; Posttraumatic stress disorder 309.81 and Attention deficit disorder of childhood without mention of hyperactivity 314.00 [facility] [address] [id number] [address] [place] [id number] May, [facility] [address] [id number] [address] [place] [phone] May, [facility] [address] [id number] [address] [place] [phone] May, Schizoaffective disorder, ch ronic 295.72 ; Posttraumatic stress disorder 309.81 ; Attention deficit disorder of childhood without mention of hyperactivity 314.00 and Bipolar disorder, unspecified 296.80 [facility] [address] [id number] [address] [place] [phone] Apr, Schizoaffective disorder, ch ronic 295.72 [facility] [address] [id number] [address] [place] [phone] Apr, [facility] [address] [id number] [address] [place] [phone] Apr, Schizoaffective disorder, ch ronic 295.72 ; Posttraumatic stress disorder 309.81 and Attention deficit disorder of childhood without mention of hyperactivity 314.00 [facility] [address] [id number] [address] [place] [phone] Mar, Disorganized schizophrenia, 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 [id number] [address] [place] [phone] Mar, [facility] [address] [facility] [id number] [address] [place] [phone] February, Schizoaffective disorder, ch ronic 295.72 [facility] [address] [facility] [id number] [address] [place] [phone] February, [facility] [address] [id number] [address] [place] [phone] February, Attention 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 ; Posttraumatic stress disorder 309.81 and Schizoaffective disorder, chronic 295.72 [facility] [address] [id number] [address] [place] [phone] Jan, [facility] [address] [id number] [address] [place] [phone] Jan, [facility] [address] [id number] [address] [place] [phone] Jan, [facility] [address] [id number] [address] [place] [phone] Dec, [facility] [address] [id number] [address] [place] [phone] Dec, [facility] [address] [id number] [address] [place] [phone] Dec, [facility] [address] [id number] [address] [place] [phone] Dec, [facility] [address] [id number] [address] [place] [phone] Dec, [facility] [address] [id number] [address] [place] [phone] Dec, [facility] [address] [id number] [address] [place] [phone] Dec, [facility] [address] [id number] [address] [place] [phone] Dec, [facility] [address] [id number] [address] [place] [phone] Nov, [facility] [address] [id number] [address] [place] [phone] Nov, [facility] [address] [id number] [address] [place] [address], [place] [address] Nov, 2014 [facility] [address] [id number] [address] [place] [address], [place] [address] Nov, 2014 [facility] [address] [id number] [address] [place] [address], [place] [address] Nov, 2014 [facility] [address] [id number] [address] [place] [address], [place] [address] Nov, 2014 [facility] [address] [id number] [address] [place] [address], [place] [address] Nov, [facility] [address] [id number] [address] [place] [address], [place] [address] Nov, [facility] [address] [id number] [address] [place] [address], [place] [address] Nov, [facility] [address] [id number] [address] [place] [address], [place] [address] Nov, [facility] [address] [id number] [address] [place] [address], [place] [address] Oct, [facility] [address] [id number] [address] [place] [address], [place] [address] Oct, [facility] [address] [id number] [address] [place] [address], [place] [address] Oct, [facility] [address] [id number] [address] [place] [phone] Oct, [facility] [address] [id number] [address] [place] [address], [place] [address] Oct, [facility] [address] [id number] [address] [place] [address], [place] [address] Oct, [facility] [address] [id number] [address] [place] [phone] Oct, [facility] [address] [id number] [address] [place] [phone] 17 Sep, 2014 [facility] [address] [id number] [address] [place] [address], [place] [address] 17 Sep, 2014 [facility] [address] [id number] [address] [place] [address], [place] [address] 15 Sep, 2014 [facility] [address] [id number] [address] [place] [address], [place] [address] 15 Sep, 2014 [facility] [address] [id number] [address] [place] [address], [place] [address] Aug, [facility] [address] [id number] [address] [place] [address], [place] [address] Aug, [facility] [address] [id number] [address] [place] [address], [place] [address] Aug, [facility] [address] [id number] [address] [place] [address], [place] [address] Aug, [facility] [address] [id number] [address] [place] [address], [place] [address] Aug, [facility] [address] [id number] [address] [place] [address], [place] [address] Aug, [facility] [address] [id number] [address] [place] [address], [place] [address] 29 Jul, 2014 [facility] [address] [id number] [address] [place] [address], [place] [address] 29 Jul, 2014 [facility] [address] [id number] [address] [place] [phone] 24 Jul, 2014 [facility] [address] [id number] [address] [place] [address], [place] [address] 24 Jul, 2014 [facility] [address] [id number] [address] [place] [address], [place] [address] 15 Jul, 2014 [facility] [address] [id number] [address] [place] [address], [place] [address] 15 Jul, 2014 [facility] [address] [id number] [facility] [place] [address] 27 Sep, 2013 [facility] [address] [id number] [facility] [place] [address] 27 Sep, 2013 [facility] [address] [id number] [facility] [place] [address] 26 Jun, 2013 [facility] [address] [id number] [facility] [place] [address] 26 Jun, 2013 [facility] [address] [id number] [facility] [place] [address] 26 Jun, 2013 [facility] [address] [id number] [address] [place] [address], [place] [address] 26 Jun, 2013 [facility] [address] [id number] [address] [place] [address], [place] [address] 16 Jun, 2013 [facility] [address] [id number] [address] [place] [address], [place] [address] 16 Jun, 2013 [facility] [address] [id number] [address] [place] [address], [place] [address] 16 Jun, 2013 [facility] [address] [id number] [address] [place] [address], [place] [address] 16 Jun, 2013 [facility] [address] [id number] [address] [place] [address], [place] [address] 04 Jun, 2013 [facility] [address] [id number] [address] [place] [address], [place] [address] May, [facility] [address] [id number] [address] [place] [address], [place] [address] May, [facility] [address] [id number] [address] [place] [address], [place] [address] May, [facility] [address] [id number] [address] [place] [address], [place] [address] May, [facility] [address] [id number] [address] [place] [address], [place] [address] May, [facility] [address] [id number] [facility] [place] [address] May, [facility] [address] [id number] [address] [place] [address], [place] [address] May, [facility] [address] [id number] [address] [place] [address], [place] [address] May, [facility] [address] [id number] [address] [place] [address], [place] [address] May, [facility] [address] [id number] [address] [place] [address], [place] [address] May, [facility] [address] [id number] [address] [place] [address], [place] [address] Apr, [facility] [address] [id number] [address] [place] [address], [place] [address] Apr, [facility] [address] [id number] [address] [place] [address], [place] [address] Apr, [facility] [address] [id number] [address] [place] [address], [place] [address] Apr, [facility] [address] [id number] [address] [place] [address], [place] [address] Apr, [facility] [address] [id number] [address] [place] [address], [place] [address] Apr, [facility] [address] [id number] [address] [place] [address], [place] [address] Apr, [facility] [address] [id number] [address] [place] [address], [place] [address] Apr, [facility] [address] [id number] [address] [place] [address], [place] [address] Apr, [facility] [address] [id number] [address] [place] [address], [place] [address] Apr, [facility] [address] [id number] [address] [place] [address], [place] [address] Mar, [facility] [address] [id number] [facility] [place] [address] Mar, [facility] [address] [id number] [facility] [place] [address] 25 Mar, 2014 [facility] [address] [id number] [address] [place] [address], [place] [address] 24 Mar, 2014 [facility] [address] [id number] [address] [place] [address], [place] [address] 20 Mar, 2014 [facility] [address] [id number] [address] [place] [address], [place] [address] 18 Mar, 2014 [facility] [address] [id number] [address] [place] [address], [place] [address] 18 Mar, 2014 [facility] [address] [id number] [address] [place] [address], [place] [address] 16 Mar, 2014 [facility] [address] [id number] [address] [place] [address], [place] [address] 16 Mar, 2014 [facility] [address] [id number] [address] [place] [address], [place] [address] Mar, [facility] [address] [id number] [address] [place] [address], [place] [address] 13 Mar, 2014 [facility] [address] [id number] [address] [place] [address], [place] [address] Mar, [facility] [address] [id number] [address] [place] [address], [place] [address] 11 Mar, 2014 [facility] [address] [id number] [address] [place] [address], [place] [address] 10 Mar, 2014 [facility] [address] [id number] [address] [place] [address], [place] [address] 09 Mar, 2014 [facility] [address] [id number] [address] [place] [address], [place] [address] 09 Mar, 2014 [facility] [address] [id number] [facility] [place] [address] Mar, [facility] [address] [id number] [address] [place] [address], [place] [address] Mar, [facility] [address] [id number] [address] [place] [address], [place] [address] Mar, [facility] [address] [id number] [address] [place] [address], [place] [address] Mar, [facility] [address] [id number] [address] [place] [address], [place] [address] February, [facility] [address] [id number] [address] [place] [address], [place] [address] February, [facility] [address] [id number] [address] [place] [address], [place] [address] February, [facility] [address] [id number] [address] [place] [address], [place] [address] February, [facility] [address] [id number] [address] [place] [address], [place] [address] February, [facility] [address] [id number] [address] [place] [address], [place] [address] February, [facility] [address] [id number] [address] [place] [address], [place] [address] February, [facility] [address] [id number] [address] [place] [address], [place] [address] February, [facility] [address] [id number] [address] [place] [address], [place] [address] February, [facility] [address] [id number] [address] [place] [address], [place] [address] February, [facility] [address] [id number] [address] [place] [address], [place] [address] February, [facility] [address] [id number] [address] [place] [address], [place] [address] February, [facility] [address] [id number] [address] [place] [address], [place] [address] February, [facility] [address] [id number] [address] [place] [address], [place] [address] February, [facility] [address] [id number] [address] [place] [address], [place] [address] February, [facility] [address] [id number] [address] [place] [address], [place] [address] February, [facility] [address] [id number] [address] [place] [address], [place] [address] February, [facility] [address] [id number] [address] [place] [address], [place] [address] February, [facility] [address] [id number] [address] [place] [address], [place] [address] February, [facility] [address] [id number] [address] [place] [address], [place] [address] February, [facility] [address] [id number] [address] [place] [address], [place] [address] February, [facility] [address] [id number] [address] [place] [address], [place] [address] Jan, [facility] [address] [id number] [address] [place] [address], [place] [address] Jan, [facility] [address] [id number] [address] [place] [address], [place] [address] Jan, [facility] [address] [id number] [address] [place] [address], [place] [address] Jan, [facility] [address] [id number] [address] [place] [address], [place] [address] Jan, [facility] [address] [id number] [address] [place] [address], [place] [address] Jan, [facility] [address] [id number] [facility] [place] [address] 10 Jan, 2014 [facility] [address] [id number] [address] [place] [address], [place] [address] 10 Jan, 2014 [facility] [address] [id number] [facility] [place] [address] 21 Dec, 2013 [facility] [address] [id number] [address] [place] [address], [place] [address] 20 Dec, 2013 [facility] [address] [id number] [address] [place] [address], [place] [address] 20 Dec, 2013 [facility] [address] [id number] [address] [place] [address], [place] [address] 19 Dec, 2013 [facility] [address] [id number] [address] [place] [address], [place] [address] 19 Dec, 2013 [facility] [address] [id number] [address] [place] [address], [place] [address] 15 Dec, 2013 [facility] [address] [id number] [address] [place] [address], [place] [address] 15 Dec, 2013 [facility] [address] [id number] [address] [place] [address], [place] [address] 11 Dec, 2013 [facility] [address] [id number] [address] [place] [address], [place] [address] 10 Dec, 2013 [facility] [address] [id number] [address] [place] [address], [place] [address] 10 Dec, 2013 [facility] [address] [id number] [address] [place] [address], [place] [address] 18 Nov, 2013 [facility] [address] [id number] [address] [place] [address], [place] [address] 17 Nov, 2013 [facility] [address] [id number] [address] [place] [address], [place] [address] 17 Nov, 2013 [facility] [address] [id number] [address] [place] [address], [place] [address] Nov, [facility] [address] [id number] [address] [place] [address], [place] [address] Nov, [facility] [address] [id number] [address] [place] [address], [place] [address] Oct, [facility] [address] [id number] [address] [place] [address], [place] [address] Oct, [facility] [address] [id number] [address] [place] [address], [place] [address] Oct, [facility] [address] [id number] [address] [place] [address], [place] [address] Sep, [facility] [address] [id number] [address] [place] [address], [place] [address] Sep, [facility] [address] [id number] [address] [place] [address], [place] [address] Sep, [facility] [address] [id number] [address] [place] [address], [place] [address] Sep, [facility] [address] [id number] [address] [place] [address], [place] [address] Aug, [facility] [address] [id number] [address] [place] [id number] Aug, [facility] [address] [id number] [address] [place] [address], [place] [address] Jul, [facility] [address] [id number] [address] [place] [id number] Jul, [facility] [address] [id number] [address] [place] [address], [place] [address] Jul, [facility] [address] [id number] [address] [place] [address], [place] [address] Jul, [facility] [address] [id number] [address] [place] [address], [place] [address] Jul, [facility] [address] [id number] [address] [place] [address], [place] [address] 25 Jun, 2012 [facility] [address] [id number] [address] [place] [address], [place] [address] 25 Jun, 2012 [facility] [address] [id number] [address] [place] [address], [place] [address] 19 Jun, 2013 [facility] [address] [id number] [address] [place] [address], [place] [address] 18 Jun, 2013 [facility] [address] [id number] [address] [place] [address], [place] [address] 16 Jun, 2013 [facility] [address] [id number] [address] [place] [address], [place] [address] 12 Jun, 2013 [facility] [address] [id number] [address] [place] [address], [place] [address] 11 Jun, 2013 [facility] [address] [id number] [address] [place] [address], [place] [address] 30 May, 2013 [facility] [address] [id number] [address] [place] [address], [place] [address] May, [facility] [address] [id number] [address] [place] [address], [place] [address] Apr, [facility] [address] [id number] [address] [place] [address], [place] [address] Apr, [facility] [address] [id number] [address] [place] [address], [place] [address] Apr, [facility] [address] [id number] [address] [place] [address], [place] [address] Mar, [facility] [address] [id number] [address] [place] [address], [place] [address] Mar, [facility] [address] [id number] [address] [place] [address], [place] [address] February, [facility] [address] [id number] [address] [place] [address], [place] [address] February, [facility] [address] [id number] [address] [place] [address], [place] [address] February, [facility] [address] [id number] [address] [place] [address], [place] [address] February, [facility] [address] [id number] [address] [place] [address], [place] [address] Jan, [facility] [address] [id number] [address] [place] [address], [place] [address] Jan, [facility] [address] [id number] [address] [place] [address], [place] [address] Jan, [facility] [address] [id number] [address] [place] [address], [place] [address] 29 Dec, 2012 [facility] [address] [id number] [address] [place] [address], [place] [address] Dec, [facility] [address] [id number] [address] [place] [address], [place] [address] Dec, [facility] [address] [id number] [address] [place] [address], [place] [address] Dec, [facility] [address] [id number] [address] [place] [address], [place] [address] Nov, [facility] [address] [id number] [address] [place] [address], [place] [address] Nov, [facility] [address] [id number] [address] [place] [address], [place] [address] Oct, [facility] [address] [id number] [address] [place] [address], [place] [address] Oct, [facility] [address] [id number] [address] [place] [address], [place] [address] Oct, [facility] [address] [id number] [address] [place] [address], [place] [address] Oct, [facility] [address] [id number] [address] [place] [address], [place] [address] Aug, [facility] [address] [id number] [address] [place] [address], [place] [address] Aug, [facility] [address] [id number] [address] [place] [address], [place] [address] Jun, [facility] [address] [id number] [address] [place] [address], [place] [address] May, [facility] [address] [id number] [address] [place] [address], [place] [address] May, [facility] [address] [id number] [address] [place] [address], [place] [address] Apr, [facility] [address] [id number] [address] [place] [address], [place] [address] Apr, [facility] [address] [id number] [address] [place] [address], [place] [address] Apr, [facility] [address] [id number] [address] [place] [address], [place] [address] Mar, [facility] [address] [id number] [address] [place] [address], [place] [address] Mar, [facility] [address] [id number] [address] [place] [address], [place] [address] Mar, [facility] [address] [id number] [address] [place] [address], [place] [address] Mar, [facility] [address] [id number] [address] [place] [address], [place] [address] Mar, [facility] [address] [id number] [address] [place] [address], [place] [address] February, [facility] [address] [id number] [address] [place] [address], [place] [address] February, [facility] [address] [id number] [address] [place] [address], [place] [address] February, [facility] [address] [id number] [address] [place] [address], [place] [address] February, [facility] [address] [id number] [address] [place] [address], [place] [address] February, [facility] [address] [id number] [address] [place] [address], [place] [address] February, [facility] [address] [id number] [address] [place] [address], [place] [address] February, [facility] [address] [id number] [address] [place] [address], [place] [address] Jan, [facility] [address] [id number] [address] [place] [address], [place] [address] 18 Jan, 2012 [facility] [address] [id number] [address] [place] [address], [place] [address] 17 Jan, 2012 [facility] [address] [id number] [address] [place] [address], [place] [address] 13 Jan, 2012 [facility] [address] [id number] [address] [place] [address], [place] [address] 10 Jan, 2012 [facility] [address] [id number] [address] [place] [address], [place] [address] 04 Jan, 2012 [facility] [address] [id number] [address] [place] [address], [place] [address] 30 Dec, 2011 [facility] [address] [id number] [address] [place] [address], [place] [address] 24 Dec, 2011 [facility] [address] [id number] [address] [place] [address], [place] [address] 20 Dec, 2011 [facility] [address] [id number] [address] [place] [address], [place] [address] 13 Dec, 2011 [facility] [address] [id number] [address] [place] [address], [place] [address] 06 Dec, 2011 [facility] [address] [id number] [address] [place] [address], [place] [address] Nov, [facility] [address] [id number] [facility] [place] [address] Nov, [facility] [address] [id number] [address] [place] [address], [place] [address] Nov, [facility] [address] [id number] [address] [place] [address], [place] [address] 14 Nov, 2011 [facility] [address] [id number] [address] [place] [address], [place] [address] Nov, [facility] [address] [id number] [address] [place] [address], [place] [address] Nov, [facility] [address] [id number] [address] [place] [address], [place] [address] Oct, [facility] [address] [id number] [address] [place] [address], [place] [address] Oct, [facility] [address] [id number] [address] [place] [address], [place] [address] Oct, [facility] [address] [id number] [address] [place] [address], [place] [address] Oct, [facility] [address] [id number] [address] [place] [address], [place] [address] Oct, [facility] [address] [id number] [address] [place] [address], [place] [address] Sep, [facility] [address] [id number] [address] [place] [address], [place] [address] Sep, [facility] [address] [id number] [address] [place] [address], [place] [address] Sep, [facility] [address] [id number] [address] [place] [address], [place] [address] Sep, [facility] [address] [id number] [address] [place] [address], [place] [address] Sep, [facility] [address] [id number] [address] [place] [address], [place] [address] 13 Sep, 2011 [facility] [address] [id number] [address] [place] [address], [place] [address] Sep, [facility] [address] [id number] [address] [place] [address], [place] [address] Sep, [facility] [address] [id number] [address] [place] [address], [place] [address] Sep, [facility] [address] [id number] [address] [place] [address], [place] [address] Aug, [facility] [address] [id number] [address] [place] [address], [place] [address] Aug, [facility] [address] [id number] [address] [place] [address], [place] [address] Aug, [facility] [address] [id number] [address] [place] [address], [place] [address] Aug, [facility] [address] [id number] [address] [place] [address], [place] [address] Aug, [facility] [address] [id number] [address] [place] [address], [place] [address] Aug, [facility] [address] [id number] [address] [place] [address], [place] [address] Aug, [facility] [address] [id number] [address] [place] [address], [place] [address] Aug, [facility] [address] [id number] [address] [place] [address], [place] [address] Aug, [facility] [address] [id number] [address] [place] [address], [place] [address] Aug, [facility] [address] [id number] [address] [place] [address], [place] [address] Aug, [facility] [address] [id number] [address] [place] [address], [place] [address] Aug, [facility] [address] [id number] [address] [place] [address], [place] [address] Jul, [facility] [address] [id number] [address] [place] [address], [place] [address] Jul, [facility] [address] [id number] [address] [place] [address], [place] [address] Jul, [facility] [address] [id number] [address] [place] [address], [place] [address] Jul, [facility] [address] [id number] [address] [place] [address], [place] [address] Jul, [facility] [address] [id number] [address] [place] [address], [place] [address] Jul, [facility] [address] [id number] [address] [place] [address], [place] [address] Jul, [facility] [address] [id number] [address] [place] [address] Jul, [facility] [address] [id number] [address] [place] [address], [place] [address] Jul, [facility] [address] [id number] [address] [place] [address] Jul, [facility] [address] [id number] [address] [place] [address] Nov, [facility] [address] [id number] [address] [place] [address] Aug, [facility] [address] [id number] [address] [place] [address], [place] [address] Aug, [facility] [address] [id number] [address] [place] [address], [place] [address] Aug, [facility] [address] [id number] [address] [place] [address] Aug, [facility] [address] [id number] [address] [place] [id number] Jul, IMMUNIZATIONS No Known Immunizations SOCIAL HISTORY Never Assessed REASON FOR VISIT PLAN OF CARE VITAL SIGNS MEDICATIONS Unknown Medications RESULTS No Results PROCEDURES Procedure Date Ordered Result Body Site THER/PROPH/DIAG INJ, SC/IM Dec 18, 2014 INSTRUCTIONS MEDICATIONS ADMINISTERED No Known Medications [...] Suicide attempt by hanging 2015 Hospitalization History [facility] 01/30/2018-02/10/20 08 Hospitalization History [facility] 05/04/18-
--- OUTSIDE RECORDS SUMMARY | 2020-04-04 01:58 | XMS REPORT ---
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 Active 16382072 Problem Generalized anxiety disorder 300.02 A ctive 04852286 Problem Obsessive-compulsive disorders 300.3 Active 688519884 Problem Catatonic schizophrenia, 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 841036822 Problem Disorganized schizophrenia, 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 72681462 Problem Paranoid schizophrenia F20.0 Active 71144331 Problem Borderline personality disorder F60.3 Active 80568277 Problem Paranoid schizophrenia, unspecified condition 295.30 Active 61803810 Problem Schizoaffective disorder, depressive type F25.1 Active 48669458 Problem Bipolar disorder, unspecified 296.80 Active 44832813 Problem Schizoaffective disorder, unspecified F25.9 Active 06146174 Problem Attention deficit hyperactivity disorder (ADHD), inattentive type, 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 88430213 Problem Posttraumatic stress disorder F43.10 Active 50273095 Problem High risk medication use Z79.899 Activ e [id number] ALLERGIES No Information ENCOUNTERS Encounter Location Date Diagnosis [facility] [address] [facility] [id number] [address] [place] [phone] Jun, Paranoid schizophrenia F20.0 ; Attention deficit hyperactivity disorder (ADHD), inattentive type, 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 ; Posttraumatic stress disorder F43.10 ; Borderline personality disorder F60.3 and 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.899 [facility] [address] [facility] [id number] [address] [place] [id number] Apr, Paranoid schizophrenia F20.0 ; Posttraumatic stress disorder F43.10 ; Attention deficit hyperactivity disorder (ADHD), inattentive type, 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 and Borderline personality disorder F60.3 [facility] [address] [id number] [address] [place] [id number] Apr, Paranoid schizophrenia F20.0 [facility] [address] [facility] [id number] [address] [address] Apr, Paranoid schizophrenia F20.0 ; Posttraumatic stress disorder F43.10 ; Attention deficit hyperactivity disorder (ADHD), inattentive type, 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 and Borderline personality disorder F60.3 [facility] [address] [id number] [address] [place] [phone] Mar, Paranoid schizophrenia F20.0 [facility] [address] [facility] [id number] [address] [place] [phone] Mar, Paranoid schizophrenia F20.0 ; Posttraumatic stress disorder F43.10 ; Attention deficit hyperactivity disorder (ADHD), inattentive type, 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 and Borderline personality disorder F60.3 [facility] [address] [facility] [id number] [address] [place] [phone] February, Paranoid schizophrenia F20.0 [facility] [address] [facility] [id number] [address] [place] [phone] Jan, Paranoid schizophrenia F20.0 ; Posttraumatic stress disorder F43.10 ; Attention deficit hyperactivity disorder (ADHD), inattentive type, 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 and Borderline personality disorder F60.3 [facility] [address] [facility] [id number] [address] [place] [phone] Dec, Paranoid schizophrenia F20.0 ; Posttraumatic stress disorder F43.10 ; Attention deficit hyperactivity disorder (ADHD), inattentive type, 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 and Borderline personality disorder F60.3 [facility] [address] [facility] [id number] [address] [place] [phone] Dec, Paranoid schizophrenia F20.0 ; Posttraumatic stress disorder F43.10 ; Attention deficit hyperactivity disorder (ADHD), inattentive type, 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 and Borderline personality disorder F60.3 [facility] [address] [id number] [address] [place] [phone] Oct, Paranoid schizophrenia F20.0 ; Posttraumatic stress disorder F43.10 ; Attention deficit hyperactivity disorder (ADHD), inattentive type, 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 and Borderline personality disorder F60.3 [facility] [address] [facility] [id number] [address] [place] [phone] Oct, Paranoid schizophrenia F20.0 ; Posttraumatic stress disorder F43.10 ; Attention deficit hyperactivity disorder (ADHD), inattentive type, 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 and Borderline personality disorder F60.3 [facility] [address] [id number] [address] [place] [phone] Aug, [facility] [address] [facility] [id number] [address] [place] [phone] Aug, Paranoid schizophrenia F20.0 ; Posttraumatic stress disorder F43.10 ; Attention deficit hyperactivity disorder (ADHD), inattentive type, 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 and Borderline personality disorder F60.3 [facility] [address] [id number] [address] [place] [phone] Jul, Dry skin dermatitis L85.3 [facility] [address] [facility] [id number] [address] [place] [phone] Jul, [facility] [address] [facility] [id number] [address] [place] [phone] Jul, Paranoid schizophrenia F20.0 [facility] [address] [facility] [id number] [address] [place] [address] May, Paranoid schizophrenia F20.0 ; Posttraumatic stress disorder F43.10 ; Attention deficit hyperactivity disorder (ADHD), inattentive type, 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 and Borderline personality disorder F60.3 [facility] [address] [id number] [address] [place] [phone] May, [facility] [address] [facility] [id number] [address] [place] [phone] May, Paranoid schizophrenia F20.0 [facility] [address] [id number] [address] [place] [phone] May, Paranoid schizophrenia F20.0 ; Posttraumatic stress disorder F43.10 ; Attention deficit hyperactivity disorder (ADHD), inattentive type, 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 and Borderline personality disorder F60.3 [facility] [address] [id number] [address] [place] [phone] Apr, [facility] [address] [id number] [address] [place] [address], [place] [address] Apr, Paranoid schizophrenia F20.0 ; Posttraumatic stress disorder F43.10 ; Attention deficit hyperactivity disorder (ADHD), inattentive type, 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 and Borderline personality disorder F60.3 [facility] [address] [id number] [address] [place] [phone] Apr, [facility] [address] [id number] [address] [place] [phone] Apr, Schizoaffective disorder, de pressive type F25.1 and Borderline personality disorder F60.3 [facility] [address] [id number] [address] [place] [phone] Apr, Paranoid schizophrenia F20.0 ; Posttraumatic stress disorder F43.10 ; Attention deficit hyperactivity disorder (ADHD), inattentive type, 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 and Borderline personality disorder F60.3 [facility] [address] [id number] [address] [place] [id number] Apr, [facility] [address] [id number] [address] [place] [phone] Apr, Paranoid schizophrenia F20.0 ; Posttraumatic stress disorder F43.10 ; Attention deficit hyperactivity disorder (ADHD), inattentive type, 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 and Borderline personality disorder F60.3 [facility] [address] [id number] [address] [place] [id number] Apr, [facility] [address] [id number] [address] [place] [phone] Mar, Paranoid schizophrenia F20.0 [facility] [address] [id number] [address] [place] [id number] Mar, [facility] [address] [facility] [id number] [address] [place] [phone] Mar, Paranoid schizophrenia F20.0 ; Posttraumatic stress disorder F43.10 ; Attention deficit hyperactivity disorder (ADHD), inattentive type, 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 and Borderline personality disorder F60.3 [facility] [address] [id number] [address] [place] [id number] February, Paranoid schizophrenia F20.0 [facility] [address] [id number] [address] [place] [phone] February, Paranoid schizophrenia F20.0 ; Posttraumatic stress disorder F43.10 ; Attention deficit hyperactivity disorder (ADHD), inattentive type, 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 and Borderline personality disorder F60.3 [facility] [address] [facility] [id number] [address] [place] [phone] February, Paranoid schizophrenia F20.0 ; Posttraumatic stress disorder F43.10 ; Attention deficit hyperactivity disorder (ADHD), inattentive type, 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 and Borderline personality disorder F60.3 [facility] [address] [facility] [id number] [address] [place] [phone] February, [facility] [address] [facility] [id number] [address] [place] [phone] February, Paranoid schizophrenia F20.0 [facility] [address] [facility] [id number] [address] [place] [phone] February, Paranoid schizophrenia F20.0 [facility] [address] [facility] [id number] [address] [place] [phone] February, Paranoid schizophrenia F20.0 ; Posttraumatic stress disorder F43.10 ; Attention deficit hyperactivity disorder (ADHD), inattentive type, 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 and Borderline personality disorder F60.3 [facility] [address] [id number] [address] [place] [phone] Jan, Paranoid schizophrenia F20.0 ; Posttraumatic stress disorder F43.10 ; Attention deficit hyperactivity disorder (ADHD), inattentive type, 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 and Borderline personality disorder F60.3 [facility] [address] [id number] [address] [place] [phone] Jan, Paranoid schizophrenia F20.0 [facility] [address] [id number] [address] [place] [phone] Jan, Paranoid schizophrenia F20.0 [facility] [address] [id number] [address] [place] [phone] Jan, Paranoid schizophrenia F20.0 ; Posttraumatic stress disorder F43.10 ; Attention deficit hyperactivity disorder (ADHD), inattentive type, 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 and Borderline personality disorder F60.3 [facility] [address] [id number] [address] [place] [phone] Dec, [facility] [address] [id number] [address] [place] [phone] Nov, Paranoid schizophrenia F20.0 ; Posttraumatic stress disorder F43.10 ; Attention deficit hyperactivity disorder (ADHD), inattentive type, 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 and Borderline personality disorder F60.3 [facility] [address] [id number] [address] [place] [phone] Nov, [facility] [address] [id number] [address] [place] [phone] Oct, Paranoid schizophrenia F20.0 [facility] [address] [id number] [address] [place] [phone] Oct, Paranoid schizophrenia F20.0 ; Posttraumatic stress disorder F43.10 ; Attention deficit hyperactivity disorder (ADHD), inattentive type, 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 ; Borderline personality disorder F60.3 and 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.899 [facility] [address] [id number] [address] [place] [phone] Oct, [facility] [address] [id number] [address] [place] [phone] Oct, [facility] [address] [id number] [address] [place] [phone] Sep, [facility] [address] [id number] [address] [place] [phone] Sep, Paranoid schizophrenia F20.0 ; Posttraumatic stress disorder F43.10 ; Attention deficit hyperactivity disorder (ADHD), inattentive type, 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 and Borderline personality disorder F60.3 [facility] [address] [id number] [address] [place] [phone] Sep, Paranoid schizophrenia F20.0 [facility] [address] [id number] [address] [place] [phone] Aug, Paranoid schizophrenia F20.0 ; Posttraumatic stress disorder F43.10 ; Attention deficit hyperactivity disorder (ADHD), inattentive type, 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 and Borderline personality disorder F60.3 [facility] [address] [id number] [address] [place] [phone] Aug, Paranoid schizophrenia F20.0 ; Posttraumatic stress disorder F43.10 ; Attention deficit hyperactivity disorder (ADHD), inattentive type, 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 and Borderline personality disorder F60.3 [facility] [address] [facility] [id number] [address] [place] [phone] Aug, [facility] [address] [id number] [address] [place] [id number] Jul, Paranoid schizophrenia F20.0 ; Posttraumatic stress disorder F43.10 ; Attention deficit hyperactivity disorder (ADHD), inattentive type, 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 and Borderline personality disorder F60.3 [facility] [address] [id number] [address] [place] [id number] Jul, Paranoid schizophrenia F20.0 [facility] [address] [id number] [address] [place] [phone] Jul, Paranoid schizophrenia F20.0 ; Posttraumatic stress disorder F43.10 ; Attention deficit hyperactivity disorder (ADHD), inattentive type, 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 and Borderline personality disorder F60.3 [facility] [address] [id number] [address] [place] [phone] Jun, Paranoid schizophrenia F20.0 ; Posttraumatic stress disorder F43.10 ; Attention deficit hyperactivity disorder (ADHD), inattentive type, 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 and Borderline personality disorder F60.3 [facility] [address] [id number] [address] [place] [address] May, Other group home (current) dr ug therapy Z79.899 [facility] [address] [id number] [address] [place] [phone] May, [facility] [address] [id number] [address] [place] [phone] May, [facility] [address] [id number] [address] [place] [phone] May, Attention deficit hyperactiv ity disorder (ADHD), inattentive type, mild F90.0 [facility] [address] [id number] [address] [place] [id number] May, [facility] [address] [id number] [address] [place] [phone] May, Attention deficit hyperactiv ity disorder (ADHD), inattentive type, mild F90.0 [facility] [address] [id number] [address] [place] [phone] May, Paranoid schizophrenia F20.0 ; Posttraumatic stress disorder F43.10 ; Attention deficit hyperactivity disorder (ADHD), inattentive type, 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 and Other group home (current) drug therapy Z79.899 [facility] [address] [id number] [address] [place] [phone] Apr, Paranoid schizophrenia F20.0 [facility] [address] [id number] [address] [place] [id number] Apr, Paranoid schizophrenia F20.0 ; Posttraumatic stress disorder F43.10 and Attention deficit hyperactivity disorder (ADHD), inattentive type, 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 [facility] [address] [id number] [address] [place] [phone] February, [facility] [address] [id number] [address] [place] [phone] February, Paranoid schizophrenia F20.0 ; Posttraumatic stress disorder F43.10 and Attention deficit hyperactivity disorder (ADHD), inattentive type, 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 [facility] [address] [id number] [address] [place] [phone] February, Paranoid schizophrenia F20.0 ; Posttraumatic stress disorder F43.10 and Attention deficit hyperactivity disorder (ADHD), inattentive type, 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 [facility] [address] [id number] [address] [place] [phone] Jan, Paranoid schizophrenia F20.0 ; Posttraumatic stress disorder F43.10 and Attention deficit hyperactivity disorder (ADHD), inattentive type, 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 [facility] [address] [id number] [address] [place] [address] [id number] Dec, Dental examination Z01.20 [facility] [address] [id number] [address] [place] [address] [id number] Nov, Dental examination Z01.20 [facility] [address] [id number] [address] [place] [address] [id number] Nov, Dental examination Z01.20 [facility] [address] [id number] [address] [place] [address] [id number] Nov, Dental caries K02.9 [facility] [address] [id number] [address] [place] [phone] 13 Nov, 2016 High risk medication use Z79 .899 [facility] [address] [id number] [address] [place] [address] Nov, Paranoid schizophrenia F20.0 ; Posttraumatic stress disorder F43.10 ; Attention deficit hyperactivity disorder (ADHD), inattentive type, 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 and Borderline personality disorder in adult F60.3 [facility] [address] [id number] [address] [place] [address] [id number] Oct, Dental caries K02.9 [facility] [address] [facility] [id number] [address] [place] [phone] Sep, Paranoid schizophrenia F20.0 ; Posttraumatic stress disorder F43.10 and Attention deficit hyperactivity disorder (ADHD), inattentive type, 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 [facility] [address] [facility] [id number] [address] [place] [phone] Aug, Paranoid schizophrenia F20.0 ; Posttraumatic stress disorder F43.10 and Attention deficit hyperactivity disorder (ADHD), inattentive type, 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 [facility] [address] [facility] [id number] [address] [place] [id number] Aug, Strep throat J02.0 and Cough R05 [facility] [address] [id number] [address] [place] [phone] Aug, [facility] [address] [facility] [id number] [address] [place] [id number] Jul, Paranoid schizophrenia F20.0 ; Posttraumatic stress disorder F43.10 and Attention deficit hyperactivity disorder (ADHD), inattentive type, 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 [facility] [address] [facility] [id number] [address] [place] [phone] Jul, [facility] [address] [facility] [id number] [address] [place] [phone] Jun, Paranoid schizophrenia F20.0 ; Posttraumatic stress disorder F43.10 and Attention deficit hyperactivity disorder (ADHD), inattentive type, 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 [facility] [address] [id number] [address] [place] [id number] Jun, Dental examination Z01.20 [facility] [address] [id number] [address] [place] [phone] Jun, [facility] [address] [id number] [address] [place] [phone] May, Paranoid schizophrenia F20.0 [facility] [place] [address] [id number] [address] [place] [phone] May, Paranoid schizophrenia F20.0 ; Posttraumatic stress disorder F43.10 and Attention deficit hyperactivity disorder (ADHD), inattentive type, 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 [facility] [address] [id number] [address] [place] [phone] May, [facility] [place] [address] [id number] [address] [place] [phone] May, Paranoid schizophrenia F20.0 [facility] [address] [id number] [address] [place] [phone] May, [facility] [address] [id number] [address] [place] [phone] May, Paranoid schizophrenia F20.0 [facility] [address] [id number] [address] [place] [phone] May, Schizoaffective disorder, un specified F25.9 [facility] [address] [id number] [address] [place] [phone] May, Schizoaffective disorder, un specified F25.9 [facility] [address] [id number] [address] [place] [id number] May, [facility] [address] [id number] [address] [place] [phone] May, Paranoid schizophrenia F20.0 [facility] [place] [address] [id number] [address] [place] [phone] May, Paranoid schizophrenia F20.0 ; Posttraumatic stress disorder F43.10 and Attention deficit hyperactivity disorder (ADHD), inattentive type, 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 [facility] [address] [id number] [address] [place] [phone] Mar, [facility] [address] [id number] [address] [place] [id number] Mar, Paranoid schizophrenia F20.0 ; Posttraumatic stress disorder F43.10 and Attention deficit hyperactivity disorder (ADHD), inattentive type, 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 [facility] [address] [id number] [address] [place] [phone] Mar, Paranoid schizophrenia F20.0 [facility] [address] [id number] [address] [place] [phone] Mar, Paranoid schizophrenia F20.0 ; Attention deficit hyperactivity disorder (ADHD), inattentive type, 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 and Posttraumatic stress disorder F43.10 [facility] [address] [id number] [address] [place] [phone] Mar, [facility] [address] [id number] [address] [place] [phone] Mar, Paranoid schizophrenia F20.0 ; Posttraumatic stress disorder F43.10 and Attention deficit hyperactivity disorder (ADHD), inattentive type, 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 [facility] [address] [id number] [address] [place] [phone] February, [facility] [address] [id number] [address] [place] [phone] February, [facility] [address] [id number] [address] [place] [id number] February, [facility] [address] [id number] [address] [place] [id number] February, [facility] [address] [id number] [address] [place] [phone] Jan, Paranoid schizophrenia F20.0 [facility] [address] [id number] [address] [place] [id number] Jan, Dental examination Z01.20 [facility] [address] [id number] [address] [place] [id number] Jan, Dental caries K02.9 [facility] [address] [id number] [address] [place] [id number] Jan, Dental examination Z01.20 [facility] [address] [id number] [address] [place] [id number] Dec, Encounter for dental examina tion Z01.20 [facility] [address] [id number] [address] [place] [id number] Dec, Paranoid schizophrenia F20.0 [facility] [address] [id number] [address] [place] [address] [id number] Dec, Dental examination Z01.20 [facility] [address] [id number] [address] [place] [address] Dec, [facility] [address] [facility] [id number] [address] [place] [address] Dec, Paranoid schizophrenia F20.0 ; Posttraumatic stress disorder F43.10 and Attention deficit hyperactivity disorder (ADHD), inattentive type, 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 [facility] [address] [id number] [address] [place] [address] Nov, Schizoaffective disorder, un specified F25.9 [facility] [address] [id number] [address] [place] [address] Oct, Paranoid schizophrenia F20.0 [facility] [address] [id number] [address] [place] [address] Oct, [facility] [address] [id number] [address] [place] [address] Sep, Paranoid schizophrenia F20.0 ; Posttraumatic stress disorder F43.10 and Attention deficit hyperactivity disorder (ADHD), inattentive type, 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 [facility] [address] [id number] [address] [place] [address] Sep, [facility] [address] [id number] [address] [place] [address] Sep, Paranoid schizophrenia F20.0 ; Posttraumatic stress disorder F43.10 and Attention deficit hyperactivity disorder (ADHD), inattentive type, 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 [facility] [address] [id number] [address] [place] [address] Aug, Paranoid schizophrenia F20.0 [facility] [address] [id number] [address] [place] [address] Aug, [facility] [address] [id number] [address] [place] [address] Aug, Posttraumatic stress disorde r F43.10 ; Paranoid schizophrenia F20.0 and Attention deficit hyperactivity disorder (ADHD), inattentive type, 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 [facility] [address] [id number] [address] [place] [address] Jul, Bipolar disorder, unspecifie d F31.9 [facility] [address] [id number] [address] [place] [address] Jul, [facility] [address] [id number] [address] [place] [address] Jun, [facility] [address] [id number] [address] [place] [address] Jun, Schizoaffective disorder, ch ronic 295.72 ; Posttraumatic stress disorder 309.81 and Attention deficit disorder of childhood without mention of hyperactivity 314.00 [facility] [address] [id number] [address] [place] [id number] May, [facility] [address] [id number] [address] [place] [address] May, [facility] [address] [id number] [address] [place] [address] May, Schizoaffective disorder, ch ronic 295.72 ; Posttraumatic stress disorder 309.81 ; Attention deficit disorder of childhood without mention of hyperactivity 314.00 and Bipolar disorder, unspecified 296.80 [facility] [address] [id number] [address] [place] [address] Apr, Schizoaffective disorder, ch ronic 295.72 [facility] [address] [id number] [address] [place] [address] Apr, [facility] [address] [id number] [address] [place] [id number] Apr, Schizoaffective disorder, ch ronic 295.72 ; Posttraumatic stress disorder 309.81 and Attention deficit disorder of childhood without mention of hyperactivity 314.00 [facility] [address] [id number] [address] [place] [id number] Mar, Disorganized schizophrenia, 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 [facility] [address] [id number] [address] [place] [address] Mar, [facility] [address] [id number] [address] [place] [address] Mar, [facility] [address] [id number] [address] [place] [address] Mar, [facility] [address] [id number] [address] [place] [address] Mar, [facility] [address] [id number] [address] [place] [address] February, Schizoaffective disorder, ch ronic 295.72 [facility] [address] [id number] [address] [place] [id number] February, [facility] [address] [id number] [address] [place] [address] February, Attention 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 ; Posttraumatic stress disorder 309.81 and Schizoaffective disorder, chronic 295.72 [facility] [address] [id number] [address] [place] [id number] Jan, [facility] [address] [id number] [address] [place] [address], [place] [address] 14 Jan, 2015 [facility] [address] [id number] [address] [place] [address], [place] [address] 13 Jan, 2015 [facility] [address] [id number] [address] [place] [address], [place] [address] 25 Dec, 2014 [facility] [address] [id number] [address] [place] [address], [place] [address] Dec, [facility] [address] [id number] [address] [place] [address], [place] [address] Dec, [facility] [address] [id number] [address] [place] [address], [place] [address] Dec, [facility] [address] [id number] [address] [place] [address], [place] [address] Dec, [facility] [address] [id number] [address] [place] [address], [place] [address] Dec, [facility] [address] [id number] [address] [place] [address], [place] [address] 10 Dec, 2014 [facility] [address] [id number] [address] [place] [address], [place] [address] Dec, [facility] [address] [id number] [address] [place] [address], [place] [address] Nov, [facility] [address] [id number] [address] [place] [address], [place] [address] Nov, [facility] [address] [id number] [address] [place] [address], [place] [address] Nov, [facility] [place] [address] [id number] [address] [place] [address], [place] [address] Nov, [facility] [address] [id number] [address] [place] [address], [place] [address] Nov, [facility] [address] [id number] [address] [place] [address], [place] [address] Nov, [facility] [address] [id number] [address] [place] [address], [place] [address] Nov, [facility] [address] [id number] [address] [place] [address], [place] [address] Nov, [facility] [address] [id number] [address] [place] [address], [place] [address] Nov, [facility] [address] [id number] [address] [place] [address], [place] [address] Nov, [facility] [address] [id number] [address] [place] [address], [place] [address] Oct, [facility] [address] [id number] [address] [place] [address], [place] [address] Oct, [facility] [address] [id number] [address] [place] [address], [place] [address] Oct, [facility] [address] [id number] [address] [place] [address], [place] [address] Oct, [facility] [address] [id number] [address] [place] [address], [place] [address] Oct, [facility] [address] [id number] [address] [place] [address], [place] [address] Oct, [facility] [address] [id number] [address] [place] [address], [place] [address] Oct, [facility] [address] [id number] [address] [place] [address], [place] [address] Sep, [facility] [place] [address] [id number] [address] [place] [address], [place] [address] Sep, [facility] [address] [id number] [address] [place] [address], [place] [address] Sep, [facility] [place] [address] [id number] [address] [place] [address], [place] [address] Sep, [facility] [address] [id number] [address] [place] [address], [place] [address] Aug, [facility] [address] [id number] [address] [place] [address], [place] [address] Aug, [facility] [place] [address] [id number] [address] [place] [address], [place] [address] Aug, [facility] [address] [id number] [address] [place] [address], [place] [address] Aug, [facility] [place] [address] [id number] [address] [place] [address], [place] [address] Aug, [facility] [address] [id number] [address] [place] [address], [place] [address] Aug, [facility] [address] [id number] [address] [place] [address], [place] [address] Jul, [facility] [address] [id number] [address] [place] [address], [place] [address] Jul, [facility] [address] [id number] [address] [place] [address], [place] [address] Jul, [facility] [address] [id number] [address] [place] [address], [place] [address] 24 Jul, 2014 [facility] [address] [id number] [address] [place] [address], [place] [address] 15 Jul, 2014 [facility] [address] [id number] [address] [place] [address], [place] [address] 15 Jul, 2014 [facility] [address] [id number] [address] [place] [address], [place] [address] Jun, [facility] [address] [id number] [address] [place] [address], [place] [address] 27 Jun, 2014 [facility] [place] [facility] [address] [id number] [address] [place] [address], [place] [address] Jun, [facility] [place] [address] [id number] [address] [place] [address], [place] [address] Jun, [facility] [place] [address] [id number] [facility] [place] [address] Jun, 2013 [facility] [place] [facility] [address] [id number] [address] [place] [address], [place] [address] Jun, 2013 [facility] [place] [facility] [address] [id number] [address] [place] [address], [place] [address] 16 Jun, 2013 [facility] [place] [facility] [address] [id number] [address] [place] [address], [place] [address] Jun, 2013 [facility] [place] [facility] [address] [id number] [address] [place] [address], [place] [address] Jun, 2013 [facility] [place] [address] [id number] [address] [place] [address], [place] [address] Jun, 2013 [facility] [place] [address] [id number] [address] [place] [address], [place] [address] Jun, [facility] [address] [id number] [address] [place] [address], [place] [address] May, [facility] [address] [id number] [address] [place] [address], [place] [address] May, [facility] [address] [id number] [address] [place] [address], [place] [address] May, [facility] [place] [address] [id number] [address] [place] [address], [place] [address] May, [facility] [place] [address] [id number] [address] [place] [address], [place] [address] May, [facility] [address] [id number] [address] [place] [address], [place] [address] May, [facility] [address] [id number] [address] [place] [address], [place] [address] May, [facility] [place] [address] [id number] [address] [place] [address], [place] [address] May, [facility] [place] [address] [id number] [address] [place] [address], [place] [address] May, [facility] [address] [id number] [address] [place] [address], [place] [address] May, [facility] [place] [facility] [address] [id number] [address] [place] [address], [place] [address] Apr, [facility] [address] [id number] [address] [place] [address], [place] [address] Apr, [facility] [place] [facility] [address] [id number] [address] [place] [address], [place] [address] Apr, [facility] [address] [id number] [address] [place] [address], [place] [address] Apr, [facility] [address] [id number] [address] [place] [address], [place] [address] Apr, [facility] [address] [id number] [address] [place] [address], [place] [address] Apr, [facility] [address] [id number] [address] [place] [address], [place] [address] Apr, [facility] [address] [id number] [address] [place] [address], [place] [address] Apr, [facility] [address] [id number] [address] [place] [address], [place] [address] Apr, [facility] [address] [id number] [address] [place] [address], [place] [address] Apr, [facility] [place] [address] [id number] [address] [place] [address], [place] [address] Mar, [facility] [place] [address] [id number] [address] [place] [address], [place] [address] Mar, [facility] [place] [address] [id number] [address] [place] [address], [place] [address] Mar, [facility] [place] [address] [id number] [address] [place] [address], [place] [address] Mar, [facility] [address] [id number] [facility] [place] [address] 20 Mar, 2014 [facility] [address] [id number] [facility] [place] [address] 18 Mar, 2014 [facility] [address] [id number] [facility] [place] [address] 18 Mar, 2014 [facility] [address] [id number] [facility] [place] [address] 16 Mar, 2014 [facility] [address] [id number] [address] [place] [address], [place] [address] 16 Mar, 2014 [facility] [address] [id number] [address] [place] [address], [place] [address] Mar, [facility] [address] [id number] [address] [place] [address], [place] [address] Mar, [facility] [place] [facility] [address] [id number] [address] [place] [address], [place] [address] 11 Mar, 2014 [facility] [address] [id number] [address] [place] [address], [place] [address] Mar, [facility] [address] [id number] [address] [place] [address], [place] [address] Mar, [facility] [address] [id number] [address] [place] [address], [place] [address] 09 Mar, 2014 [facility] [address] [id number] [address] [place] [address], [place] [address] Mar, [facility] [address] [id number] [address] [place] [address], [place] [address] 09 Mar, 2014 [facility] [address] [id number] [address] [place] [address], [place] [address] Mar, [facility] [address] [id number] [address] [place] [address], [place] [address] 04 Mar, 2014 [facility] [address] [id number] [address] [place] [address], [place] [address] Mar, [facility] [address] [id number] [facility] [place] [address] February, [facility] [address] [id number] [facility] [place] [address] February, [facility] [address] [id number] [facility] [place] [address] February, [facility] [address] [id number] [address] [place] [address], [place] [address] February, [facility] [address] [id number] [facility] [place] [address] February, [facility] [address] [id number] [address] [place] [address], [place] [address] February, [facility] [address] [id number] [address] [place] [address], [place] [address] February, [facility] [address] [id number] [address] [place] [address], [place] [address] February, [facility] [address] [id number] [address] [place] [address], [place] [address] February, [facility] [address] [id number] [address] [place] [address], [place] [address] February, [facility] [address] [id number] [address] [place] [address], [place] [address] February, [facility] [address] [id number] [address] [place] [address], [place] [address] February, [facility] [address] [id number] [address] [place] [address], [place] [address] February, [facility] [address] [id number] [address] [place] [address], [place] [address] February, [facility] [address] [id number] [address] [place] [address], [place] [address] February, [facility] [address] [id number] [address] [address] February, [facility] [address] [id number] [address] [place] [address], [place] [address] February, [facility] [address] [id number] [address] [place] [address], [place] [address] February, [facility] [address] [id number] [address] [place] [address], [place] [address] February, [facility] [address] [id number] [address] [place] [address], [place] [address] February, [facility] [address] [id number] [address] [place] [address], [place] [address] February, [facility] [address] [id number] [address] [place] [address], [place] [address] Jan, [facility] [address] [id number] [address] [place] [address], [place] [address] Jan, [facility] [address] [id number] [address] [place] [address], [place] [address] Jan, [facility] [address] [id number] [address] [place] [address], [place] [address] Jan, [facility] [address] [id number] [address] [place] [address], [place] [address] Jan, [facility] [address] [id number] [address] [place] [address], [place] [address] Jan, [facility] [address] [id number] [address] [place] [address], [place] [address] Jan, [facility] [address] [id number] [address] [place] [address], [place] [address] Jan, [facility] [address] [id number] [address] [place] [address], [place] [address] Dec, [facility] [address] [id number] [address] [place] [address], [place] [address] Dec, [facility] [address] [id number] [address] [place] [address], [place] [address] 20 Dec, 2013 [facility] [address] [id number] [address] [place] [address], [place] [address] 19 Dec, 2013 [facility] [address] [id number] [address] [place] [address], [place] [address] 19 Dec, 2013 [facility] [address] [id number] [address] [place] [address], [place] [address] 15 Dec, 2013 [facility] [address] [id number] [address] [place] [address], [place] [address] 15 Dec, 2013 [facility] [address] [id number] [address] [place] [address], [place] [address] 11 Dec, 2013 [facility] [address] [id number] [address] [place] [address], [place] [address] 10 Dec, 2013 [facility] [address] [id number] [address] [place] [address], [place] [address] 10 Dec, 2013 [facility] [address] [id number] [address] [place] [address], [place] [address] 18 Nov, 2013 [facility] [address] [id number] [address] [place] [address], [place] [address] Nov, [facility] [address] [id number] [address] [place] [address], [place] [address] Nov, [facility] [address] [id number] [address] [place] [address], [place] [address] Nov, [facility] [address] [id number] [address] [place] [address], [place] [address] Nov, [facility] [address] [id number] [address] [place] [address], [place] [address] Oct, [facility] [address] [id number] [address] [place] [address], [place] [address] Oct, [facility] [address] [id number] [address] [place] [address], [place] [address] Oct, [facility] [address] [id number] [address] [place] [address], [place] [address] Sep, [facility] [address] [id number] [address] [place] [id number] Sep, [facility] [address] [id number] [address] [place] [address], [place] [address] Sep, [facility] [address] [id number] [address] [place] [address], [place] [address] Sep, [facility] [address] [id number] [address] [place] [address], [place] [address] Aug, [facility] [address] [id number] [address] [place] [address], [place] [address] Aug, [facility] [address] [id number] [address] [place] [address], [place] [address] Jul, [facility] [address] [id number] [address] [place] [address], [place] [address] Jul, [facility] [address] [id number] [address] [place] [address], [place] [address] Jul, [facility] [address] [id number] [address] [place] [id number] Jul, [facility] [address] [id number] [address] [place] [address], [place] [address] Jul, [facility] [address] [id number] [address] [place] [id number] 25 Jun, 2013 [facility] [address] [id number] [address] [place] [address], [place] [address] 25 Jun, 2012 [facility] [address] [id number] [address] [place] [address], [place] [address] 19 Jun, 2012 [facility] [address] [id number] [address] [place] [address], [place] [address] 18 Jun, 2012 [facility] [address] [id number] [address] [place] [address], [place] [address] 16 Jun, 2013 [facility] [address] [id number] [address] [place] [address], [place] [address] 12 Jun, 2013 [facility] [address] [id number] [address] [place] [address], [place] [address] 11 Jun, 2013 [facility] [address] [id number] [address] [place] [address], [place] [address] 30 May, 2013 [facility] [address] [id number] [address] [place] [address], [place] [address] May, [facility] [address] [id number] [address] [place] [address], [place] [address] Apr, [facility] [address] [id number] [address] [place] [address], [place] [address] Apr, [facility] [address] [id number] [address] [place] [address], [place] [address] Apr, [facility] [address] [id number] [address] [place] [address], [place] [address] Mar, [facility] [address] [id number] [address] [place] [address], [place] [address] Mar, [facility] [place] [facility] [address] [id number] [address] [place] [address], [place] [address] February, [facility] [address] [id number] [address] [place] [address], [place] [address] February, [facility] [address] [id number] [address] [place] [address], [place] [address] February, [facility] [address] [id number] [address] [place] [address], [place] [address] February, [facility] [address] [id number] [address] [place] [address], [place] [address] Jan, [facility] [address] [id number] [address] [place] [address], [place] [address] 17 Jan, 2013 [facility] [facility] [address] [id number] [address] [place] [address], [place] [address] 16 Jan, 2013 [facility] [address] [id number] [address] [place] [address], [place] [address] 29 Dec, 2012 [facility] [address] [id number] [address] [place] [address], [place] [address] Dec, [facility] [address] [id number] [address] [place] [address], [place] [address] Dec, [facility] [address] [id number] [address] [place] [address], [place] [address] Dec, [facility] [address] [id number] [address] [place] [address], [place] [address] Nov, [facility] [address] [id number] [address] [place] [address], [place] [address] Nov, [facility] [address] [id number] [address] [place] [address], [place] [address] Oct, [facility] [address] [id number] [address] [place] [address], [place] [address] Oct, [facility] [address] [id number] [address] [place] [address], [place] [address] Oct, [facility] [address] [id number] [address] [place] [address], [place] [address] Oct, [facility] [address] [id number] [address] [place] [address], [place] [address] Aug, [facility] [address] [id number] [address] [place] [address], [place] [address] Aug, [facility] [address] [id number] [address] [place] [address], [place] [address] Jun, [facility] [address] [id number] [address] [place] [address], [place] [address] May, [facility] [address] [id number] [address] [place] [address], [place] [address] May, [facility] [address] [id number] [address] [place] [address], [place] [address] Apr, [facility] [address] [id number] [address] [place] [address], [place] [address] Apr, [facility] [address] [id number] [address] [place] [address], [place] [address] Apr, [facility] [address] [id number] [address] [place] [address], [place] [address] Mar, [facility] [address] [id number] [address] [place] [address], [place] [address] Mar, [facility] [address] [id number] [address] [place] [address], [place] [address] Mar, [facility] [address] [id number] [address] [place] [address], [place] [address] Mar, [facility] [place] [facility] [address] [id number] [address] [place] [address], [place] [address] Mar, [facility] [address] [id number] [address] [place] [address], [place] [address] February, [facility] [place] [facility] [address] [id number] [address] [place] [address], [place] [address] February, [facility] [place] [facility] [address] [id number] [address] [place] [address], [place] [address] February, [facility] [place] [facility] [address] [id number] [address] [place] [address], [place] [address] February, [facility] [address] [id number] [address] [place] [address], [place] [address] February, [facility] [place] [facility] [address] [id number] [address] [place] [address], [place] [address] February, [facility] [place] [facility] [address] [id number] [address] [place] [address], [place] [address] February, [facility] [address] [id number] [address] [place] [address], [place] [address] 25 Jan, 2012 [facility] [address] [id number] [address] [place] [address], [place] [address] 18 Jan, 2012 [facility] [address] [id number] [address] [place] [address], [place] [address] 17 Jan, 2012 [facility] [address] [id number] [address] [place] [address], [place] [address] 13 Jan, 2012 [facility] [address] [id number] [address] [place] [address], [place] [address] 10 Jan, 2012 [facility] [address] [id number] [address] [place] [address], [place] [address] 04 Jan, 2012 [facility] [address] [id number] [address] [place] [address], [place] [address] 30 Dec, 2011 [facility] [address] [id number] [address] [place] [address], [place] [address] 24 Dec, 2011 [facility] [address] [id number] [address] [place] [address], [place] [address] Dec, [facility] [address] [id number] [address] [place] [address], [place] [address] Dec, [facility] [address] [id number] [address] [place] [address], [place] [address] Dec, [facility] [address] [id number] [address] [place] [address], [place] [address] 28 Nov, 2011 [facility] [address] [id number] [address] [place] [address], [place] [address] Nov, [facility] [address] [id number] [address] [place] [address], [place] [address] 25 Nov, 2011 [facility] [address] [id number] [address] [place] [address], [place] [address] 14 Nov, 2011 [facility] [address] [id number] [address] [place] [address], [place] [address] 10 Nov, 2011 [facility] [address] [id number] [address] [place] [address], [place] [address] Nov, [facility] [address] [id number] [address] [place] [address], [place] [address] Oct, [facility] [place] [facility] [address] [id number] [address] [place] [address], [place] [address] Oct, [facility] [address] [id number] [address] [place] [address], [place] [address] Oct, [facility] [address] [id number] [address] [place] [address], [place] [address] Oct, [facility] [place] [facility] [address] [id number] [address] [place] [address], [place] [address] Oct, [facility] [place] [facility] [address] [id number] [address] [place] [address], [place] [address] Sep, [facility] [place] [facility] [address] [id number] [address] [place] [address], [place] [address] Sep, [facility] [place] [facility] [address] [id number] [address] [place] [address], [place] [address] Sep, [facility] [place] [facility] [address] [id number] [address] [place] [address], [place] [address] 14 Sep, 2011 [facility] [address] [id number] [address] [place] [address], [place] [address] 14 Sep, 2011 [facility] [place] [facility] [address] [id number] [address] [place] [address], [place] [address] 13 Sep, 2011 [facility] [address] [id number] [address] [place] [address], [place] [address] 12 Sep, 2011 [facility] [address] [id number] [address] [place] [address], [place] [address] 09 Sep, 2011 [facility] [address] [id number] [address] [place] [address], [place] [address] Sep, [facility] [address] [id number] [address] [place] [address], [place] [address] Aug, [facility] [address] [id number] [address] [place] [address], [place] [address] Aug, [facility] [address] [id number] [address] [place] [address], [place] [address] Aug, [facility] [address] [id number] [address] [place] [address], [place] [address] Aug, [facility] [address] [id number] [address] [place] [address], [place] [address] Aug, [facility] [address] [id number] [address] [place] [address], [place] [address] Aug, [facility] [address] [id number] [address] [place] [address], [place] [address] Aug, [facility] [address] [id number] [address] [place] [address], [place] [address] Aug, [facility] [address] [id number] [address] [place] [address], [place] [address] Aug, [facility] [address] [id number] [address] [place] [address] Aug, [facility] [address] [id number] [address] [place] [id number] Aug, [facility] [address] [id number] [address] [place] [id number] Aug, [facility] [address] [id number] [address] [place] [address], [place] [address] Jul, [facility] [address] [id number] [address] [place] [address], [place] [address] Jul, [facility] [address] [id number] [address] [place] [address] Jul, [facility] [address] [id number] [address] [place] [id number] Jul, [facility] [address] [id number] [address] [place] [address] Jul, [facility] [address] [id number] [address] [place] [address] Jul, [facility] [address] [id number] [address] [place] [id number] Jul, [facility] [address] [id number] [address] [place] [address] Jul, [facility] [address] [id number] [address] [place] [address] Jul, [facility] [address] [id number] [address] [place] [address] Jul, [facility] [address] [id number] [address] [place] [address] Nov, [facility] [address] [id number] [address] [place] [address] Aug, [facility] [address] [id number] [address] [place] [address] Aug, [facility] [address] [id number] [address] [place] [id number] Aug, [facility] [address] [id number] [address] [place] [address] Aug, [facility] [address] [id number] [address] [place] [phone] Jul, IMMUNIZATIONS No Known Immunizations SOCIAL HISTORY Never Assessed REASON FOR VISIT PLAN OF CARE VITAL SIGNS MEDICATIONS Unknown Medications RESULTS No Results PROCEDURES Procedure Date Ordered Result Body Site THER/PROPH/DIAG INJ, SC/IM Jul 09, 2014 INSTRUCTIONS MEDICATIONS ADMINISTERED No Known Medications [...] Suicide attempt by hanging 2015 Hospitalization History [facility] 01/30/2018-02/10/20 08 Hospitalization History [facility] 05/04/18-
--- OUTSIDE RECORDS SUMMARY | 2020-04-04 01:58 | XMS REPORT ---
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 Active 79528235 Problem Generalized anxiety disorder 300.02 A ctive 51124467 Problem Obsessive-compulsive disorders 300.3 Active 249390297 Problem Catatonic schizophrenia, 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 519777733 Problem Disorganized schizophrenia, 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 05119064 Problem Paranoid schizophrenia F20.0 Active 98176890 Problem Borderline personality disorder F60.3 Active 10332418 Problem Paranoid schizophrenia, unspecified condition 295.30 Active 49408272 Problem Schizoaffective disorder, depressive type F25.1 Active 26542392 Problem Bipolar disorder, unspecified 296.80 Active 89949672 Problem Schizoaffective disorder, unspecified F25.9 Active 66276221 Problem Attention deficit hyperactivity disorder (ADHD), inattentive type, 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 93196406 Problem Posttraumatic stress disorder F43.10 Active 77540727 Problem High risk medication use Z79.899 Activ e [id number] ALLERGIES No Information ENCOUNTERS Encounter Location Date Diagnosis [facility] [address] [facility] [id number] [address] [place] [phone] Jun, [facility] [address] [facility] [id number] [address] [place] [phone] Apr, Paranoid schizophrenia F20.0 ; Posttraumatic stress disorder F43.10 ; Attention deficit hyperactivity disorder (ADHD), inattentive type, 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 and Borderline personality disorder F60.3 [facility] [address] [facility] [id number] [address] [place] [phone] Apr, Paranoid schizophrenia F20.0 [facility] [address] [facility] [id number] [address] [place] [phone] Apr, Paranoid schizophrenia F20.0 ; Posttraumatic stress disorder F43.10 ; Attention deficit hyperactivity disorder (ADHD), inattentive type, 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 and Borderline personality disorder F60.3 [facility] [address] [facility] [id number] [address] [place] [phone] Mar, Paranoid schizophrenia F20.0 [facility] [address] [id number] [address] [place] [phone] Mar, Paranoid schizophrenia F20.0 ; Posttraumatic stress disorder F43.10 ; Attention deficit hyperactivity disorder (ADHD), inattentive type, 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 and Borderline personality disorder F60.3 [facility] [address] [facility] [id number] [address] [place] [phone] February, Paranoid schizophrenia F20.0 [facility] [address] [facility] [id number] [address] [place] [phone] Jan, Paranoid schizophrenia F20.0 ; Posttraumatic stress disorder F43.10 ; Attention deficit hyperactivity disorder (ADHD), inattentive type, 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 and Borderline personality disorder F60.3 [facility] [address] [facility] [id number] [address] [place] [phone] Dec, Paranoid schizophrenia F20.0 ; Posttraumatic stress disorder F43.10 ; Attention deficit hyperactivity disorder (ADHD), inattentive type, 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 and Borderline personality disorder F60.3 [facility] [address] [id number] [address] [place] [phone] Dec, Paranoid schizophrenia F20.0 ; Posttraumatic stress disorder F43.10 ; Attention deficit hyperactivity disorder (ADHD), inattentive type, 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 and Borderline personality disorder F60.3 [facility] [address] [facility] [id number] [address] [place] [phone] Oct, Paranoid schizophrenia F20.0 ; Posttraumatic stress disorder F43.10 ; Attention deficit hyperactivity disorder (ADHD), inattentive type, 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 and Borderline personality disorder F60.3 [facility] [address] [id number] [address] [place] [phone] Oct, Paranoid schizophrenia F20.0 ; Posttraumatic stress disorder F43.10 ; Attention deficit hyperactivity disorder (ADHD), inattentive type, 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 and Borderline personality disorder F60.3 [facility] [address] [id number] [address] [place] [phone] Aug, [facility] [address] [id number] [address] [place] [phone] Aug, Paranoid schizophrenia F20.0 ; Posttraumatic stress disorder F43.10 ; Attention deficit hyperactivity disorder (ADHD), inattentive type, 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 and Borderline personality disorder F60.3 [facility] [address] [id number] [address] [place] [phone] Jul, Dry skin dermatitis L85.3 [facility] [address] [id number] [address] [place] [phone] Jul, [facility] [address] [facility] [id number] [address] [place] [phone] Jul, Paranoid schizophrenia F20.0 [facility] [address] [id number] [address] [place] [phone] May, Paranoid schizophrenia F20.0 ; Posttraumatic stress disorder F43.10 ; Attention deficit hyperactivity disorder (ADHD), inattentive type, 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 and Borderline personality disorder F60.3 [facility] [address] [id number] [address] [place] [phone] May, [facility] [address] [id number] [address] [place] [phone] May, Paranoid schizophrenia F20.0 [facility] [address] [id number] [address] [place] [phone] May, Paranoid schizophrenia F20.0 ; Posttraumatic stress disorder F43.10 ; Attention deficit hyperactivity disorder (ADHD), inattentive type, 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 and Borderline personality disorder F60.3 [facility] [address] [id number] [address] [place] [phone] Apr, [facility] [address] [id number] [address] [place] [phone] Apr, Paranoid schizophrenia F20.0 ; Posttraumatic stress disorder F43.10 ; Attention deficit hyperactivity disorder (ADHD), inattentive type, 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 and Borderline personality disorder F60.3 [facility] [address] [id number] [address] [place] [phone] Apr, [facility] [address] [id number] [address] [place] [phone] Apr, Schizoaffective disorder, de pressive type F25.1 and Borderline personality disorder F60.3 [facility] [address] [id number] [address] [place] [phone] Apr, Paranoid schizophrenia F20.0 ; Posttraumatic stress disorder F43.10 ; Attention deficit hyperactivity disorder (ADHD), inattentive type, 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 and Borderline personality disorder F60.3 [facility] [address] [id number] [address] [place] [phone] Apr, [facility] [address] [id number] [address] [place] [phone] Apr, Paranoid schizophrenia F20.0 ; Posttraumatic stress disorder F43.10 ; Attention deficit hyperactivity disorder (ADHD), inattentive type, 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 and Borderline personality disorder F60.3 [facility] [address] [id number] [address] [place] [phone] Apr, [facility] [address] [id number] [address] [place] [phone] Mar, Paranoid schizophrenia F20.0 [facility] [address] [id number] [address] [place] [phone] Mar, [facility] [address] [id number] [address] [place] [phone] Mar, Paranoid schizophrenia F20.0 ; Posttraumatic stress disorder F43.10 ; Attention deficit hyperactivity disorder (ADHD), inattentive type, 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 and Borderline personality disorder F60.3 [facility] [address] [id number] [address] [place] [phone] February, Paranoid schizophrenia F20.0 [facility] [address] [id number] [address] [place] [address] February, Paranoid schizophrenia F20.0 ; Posttraumatic stress disorder F43.10 ; Attention deficit hyperactivity disorder (ADHD), inattentive type, 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 and Borderline personality disorder F60.3 [facility] [address] [facility] [id number] [address] [place] [address] February, Paranoid schizophrenia F20.0 ; Posttraumatic stress disorder F43.10 ; Attention deficit hyperactivity disorder (ADHD), inattentive type, 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 and Borderline personality disorder F60.3 [facility] [address] [id number] [address] [place] [phone] February, [facility] [address] [facility] [id number] [address] [place] [phone] February, Paranoid schizophrenia F20.0 [facility] [address] [facility] [id number] [address] [place] [phone] February, Paranoid schizophrenia F20.0 [facility] [address] [id number] [address] [place] [phone] February, Paranoid schizophrenia F20.0 ; Posttraumatic stress disorder F43.10 ; Attention deficit hyperactivity disorder (ADHD), inattentive type, 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 and Borderline personality disorder F60.3 [facility] [address] [id number] [address] [place] [address] Jan, Paranoid schizophrenia F20.0 ; Posttraumatic stress disorder F43.10 ; Attention deficit hyperactivity disorder (ADHD), inattentive type, 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 and Borderline personality disorder F60.3 [facility] [address] [id number] [address] [place] [phone] Jan, Paranoid schizophrenia F20.0 [facility] [address] [id number] [address] [place] [phone] Jan, Paranoid schizophrenia F20.0 [facility] [address] [id number] [address] [place] [phone] Jan, Paranoid schizophrenia F20.0 ; Posttraumatic stress disorder F43.10 ; Attention deficit hyperactivity disorder (ADHD), inattentive type, 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 and Borderline personality disorder F60.3 [facility] [address] [id number] [address] [place] [phone] Dec, [facility] [address] [id number] [address] [place] [phone] Nov, Paranoid schizophrenia F20.0 ; Posttraumatic stress disorder F43.10 ; Attention deficit hyperactivity disorder (ADHD), inattentive type, 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 and Borderline personality disorder F60.3 [facility] [address] [id number] [address] [place] [phone] Nov, [facility] [address] [id number] [address] [place] [address] Oct, Paranoid schizophrenia F20.0 [facility] [address] [id number] [address] [place] [phone] Oct, Paranoid schizophrenia F20.0 ; Posttraumatic stress disorder F43.10 ; Attention deficit hyperactivity disorder (ADHD), inattentive type, 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 ; Borderline personality disorder F60.3 and Other intermission coordinator (current) drug therapy Z79.899 [facility] [address] [id number] [address] [place] [phone] Oct, [facility] [address] [id number] [address] [place] [phone] Oct, [facility] [address] [id number] [address] [place] [phone] Sep, [facility] [address] [facility] [id number] [address] [place] [phone] Sep, Paranoid schizophrenia F20.0 ; Posttraumatic stress disorder F43.10 ; Attention deficit hyperactivity disorder (ADHD), inattentive type, 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 and Borderline personality disorder F60.3 [facility] [address] [id number] [address] [place] [phone] Sep, Paranoid schizophrenia F20.0 [facility] [address] [id number] [address] [place] [address] Aug, Paranoid schizophrenia F20.0 ; Posttraumatic stress disorder F43.10 ; Attention deficit hyperactivity disorder (ADHD), inattentive type, 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 and Borderline personality disorder F60.3 [facility] [address] [facility] [id number] [address] [place] [phone] Aug, Paranoid schizophrenia F20.0 ; Posttraumatic stress disorder F43.10 ; Attention deficit hyperactivity disorder (ADHD), inattentive type, 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 and Borderline personality disorder F60.3 [facility] [address] [facility] [id number] [address] [place] [phone] Aug, [facility] [address] [id number] [address] [place] [address] Jul, Paranoid schizophrenia F20.0 ; Posttraumatic stress disorder F43.10 ; Attention deficit hyperactivity disorder (ADHD), inattentive type, 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 and Borderline personality disorder F60.3 [facility] [address] [facility] [id number] [address] [place] [phone] Jul, Paranoid schizophrenia F20.0 [facility] [address] [facility] [id number] [address] [place] [phone] Jul, Paranoid schizophrenia F20.0 ; Posttraumatic stress disorder F43.10 ; Attention deficit hyperactivity disorder (ADHD), inattentive type, 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 and Borderline personality disorder F60.3 [facility] [address] [id number] [address] [place] [address] Jun, Paranoid schizophrenia F20.0 ; Posttraumatic stress disorder F43.10 ; Attention deficit hyperactivity disorder (ADHD), inattentive type, 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 and Borderline personality disorder F60.3 [facility] [address] [id number] [address] [place] [phone] May, Other intermission coordinator (current) dr ug therapy Z79.899 [facility] [address] [id number] [address] [place] [phone] May, [facility] [address] [id number] [address] [place] [phone] May, [facility] [address] [id number] [address] [place] [phone] May, Attention deficit hyperactiv ity disorder (ADHD), inattentive type, mild F90.0 [facility] [address] [id number] [address] [place] [phone] May, [facility] [address] [id number] [address] [place] [address] May, Attention deficit hyperactiv ity disorder (ADHD), inattentive type, mild F90.0 [facility] [address] [id number] [address] [place] [phone] May, Paranoid schizophrenia F20.0 ; Posttraumatic stress disorder F43.10 ; Attention deficit hyperactivity disorder (ADHD), inattentive type, 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 and Other intermission coordinator (current) drug therapy Z79.899 [facility] [address] [id number] [address] [place] [phone] Apr, Paranoid schizophrenia F20.0 [facility] [address] [id number] [address] [place] [phone] Apr, Paranoid schizophrenia F20.0 ; Posttraumatic stress disorder F43.10 and Attention deficit hyperactivity disorder (ADHD), inattentive type, 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 [facility] [address] [id number] [address] [place] [phone] February, [facility] [address] [id number] [address] [place] [phone] February, Paranoid schizophrenia F20.0 ; Posttraumatic stress disorder F43.10 and Attention deficit hyperactivity disorder (ADHD), inattentive type, 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 [facility] [address] [id number] [address] [place] [address] February, Paranoid schizophrenia F20.0 ; Posttraumatic stress disorder F43.10 and Attention deficit hyperactivity disorder (ADHD), inattentive type, 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 [facility] [address] [id number] [address] [place] [phone] Jan, Paranoid schizophrenia F20.0 ; Posttraumatic stress disorder F43.10 and Attention deficit hyperactivity disorder (ADHD), inattentive type, 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 [facility] [address] [id number] [address] [place] [phone] Dec, Dental examination Z01.20 [facility] [address] [id number] [address] [place] [phone] Nov, Dental examination Z01.20 [facility] [address] [id number] [address] [place] [id number] Nov, Dental examination Z01.20 [facility] [address] [id number] [address] [place] [address] [id number] Nov, Dental caries K02.9 [facility] [address] [id number] [address] [place] [phone] 13 Nov, 2016 High risk medication use Z79 .899 [facility] [address] [id number] [address] [place] [phone] Nov, Paranoid schizophrenia F20.0 ; Posttraumatic stress disorder F43.10 ; Attention deficit hyperactivity disorder (ADHD), inattentive type, 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 and Borderline personality disorder in adult F60.3 [facility] [address] [id number] [address] [place] [address] [id number] 18 Oct, 2016 Dental caries K02.9 [facility] [address] [id number] [address] [place] [phone] 05 Sep, 2016 Paranoid schizophrenia F20.0 ; Posttraumatic stress disorder F43.10 and Attention deficit hyperactivity disorder (ADHD), inattentive type, 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 [facility] [address] [id number] [address] [place] [id number] 16 Aug, 2016 Paranoid schizophrenia F20.0 ; Posttraumatic stress disorder F43.10 and Attention deficit hyperactivity disorder (ADHD), inattentive type, 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 [facility] [address] [id number] [address] [place] [phone] Aug, Strep throat J02.0 and Cough R05 [facility] [address] [id number] [address] [place] [phone] Aug, [facility] [address] [id number] [address] [place] [phone] 24 Jul, 2016 Paranoid schizophrenia F20.0 ; Posttraumatic stress disorder F43.10 and Attention deficit hyperactivity disorder (ADHD), inattentive type, 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 [facility] [address] [id number] [address] [place] [address] Jul, [facility] [address] [id number] [address] [place] [phone] 28 Jun, 2016 Paranoid schizophrenia F20.0 ; Posttraumatic stress disorder F43.10 and Attention deficit hyperactivity disorder (ADHD), inattentive type, 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 [facility] [address] [id number] [address] [place] [address] [id number] 22 Jun, 2016 Dental examination Z01.20 [facility] [address] [id number] [address] [place] [phone] 12 Jun, 2016 [facility] [address] [id number] [address] [place] [address] May, Paranoid schizophrenia F20.0 [facility] [address] [id number] [address] [place] [phone] May, Paranoid schizophrenia F20.0 ; Posttraumatic stress disorder F43.10 and Attention deficit hyperactivity disorder (ADHD), inattentive type, 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 [facility] [address] [id number] [address] [place] [phone] May, [facility] [address] [id number] [address] [place] [phone] May, Paranoid schizophrenia F20.0 [facility] [address] [id number] [address] [place] [phone] May, [facility] [address] [id number] [address] [place] [phone] May, Paranoid schizophrenia F20.0 [facility] [address] [id number] [address] [place] [phone] May, Schizoaffective disorder, un specified F25.9 [facility] [address] [id number] [address] [place] [phone] May, Schizoaffective disorder, un specified F25.9 [facility] [address] [id number] [address] [place] [phone] May, [facility] [address] [id number] [address] [place] [phone] May, Paranoid schizophrenia F20.0 [facility] [address] [id number] [address] [place] [phone] May, Paranoid schizophrenia F20.0 ; Posttraumatic stress disorder F43.10 and Attention deficit hyperactivity disorder (ADHD), inattentive type, 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 [facility] [address] [id number] [address] [place] [phone] Mar, [facility] [address] [id number] [address] [place] [phone] Mar, Paranoid schizophrenia F20.0 ; Posttraumatic stress disorder F43.10 and Attention deficit hyperactivity disorder (ADHD), inattentive type, 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 [facility] [address] [id number] [address] [place] [phone] Mar, Paranoid schizophrenia F20.0 [facility] [address] [id number] [address] [place] [phone] Mar, Paranoid schizophrenia F20.0 ; Attention deficit hyperactivity disorder (ADHD), inattentive type, 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 and Posttraumatic stress disorder F43.10 [facility] [address] [id number] [address] [place] [phone] Mar, [facility] [address] [id number] [address] [place] [phone] Mar, Paranoid schizophrenia F20.0 ; Posttraumatic stress disorder F43.10 and Attention deficit hyperactivity disorder (ADHD), inattentive type, 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 [facility] [address] [id number] [address] [place] [phone] February, [facility] [address] [id number] [address] [place] [phone] February, [facility] [address] [id number] [address] [place] [phone] February, [facility] [address] [id number] [address] [place] [phone] February, [facility] [address] [id number] [address] [place] [phone] Jan, Paranoid schizophrenia F20.0 [facility] [address] [id number] [address] [place] [address] [id number] Jan, Dental examination Z01.20 [facility] [address] [id number] [address] [place] [address] [id number] Jan, Dental caries K02.9 [facility] [address] [id number] [place] [id number] Jan, Dental examination Z01.20 [facility] [address] [id number] [place] [id number] Dec, Encounter for dental examina tion Z01.20 [facility] [address] [id number] [address] [place] [address] Dec, Paranoid schizophrenia F20.0 [facility] [address] [id number] [address] [place] [id number] Dec, Dental examination Z01.20 [facility] [address] [id number] [address] [place] [address] Dec, [facility] [address] [id number] [address] [place] [address] Dec, Paranoid schizophrenia F20.0 ; Posttraumatic stress disorder F43.10 and Attention deficit hyperactivity disorder (ADHD), inattentive type, 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 [facility] [address] [id number] [address] [place] [address] Nov, Schizoaffective disorder, un specified F25.9 [facility] [address] [id number] [address] [place] [address] Oct, Paranoid schizophrenia F20.0 [facility] [address] [id number] [address] [place] [address] Oct, [facility] [address] [id number] [address] [place] [address] Sep, Paranoid schizophrenia F20.0 ; Posttraumatic stress disorder F43.10 and Attention deficit hyperactivity disorder (ADHD), inattentive type, 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 [facility] [address] [id number] [address] [place] [address] Sep, [facility] [address] [id number] [address] [place] [address] Sep, Paranoid schizophrenia F20.0 ; Posttraumatic stress disorder F43.10 and Attention deficit hyperactivity disorder (ADHD), inattentive type, 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 [facility] [address] [id number] [address] [place] [address] Aug, Paranoid schizophrenia F20.0 [facility] [address] [id number] [address] [place] [address] Aug, [facility] [address] [facility] [id number] [address] [place] [address] Aug, Posttraumatic stress disorde r F43.10 ; Paranoid schizophrenia F20.0 and Attention deficit hyperactivity disorder (ADHD), inattentive type, 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 [facility] [address] [facility] [id number] [address] [place] [address] Jul, Bipolar disorder, unspecifie d F31.9 [facility] [address] [facility] [id number] [address] [place] [address] Jul, [facility] [address] [facility] [id number] [address] [place] [address] Jun, [facility] [address] [facility] [id number] [address] [place] [address] Jun, Schizoaffective disorder, ch ronic 295.72 ; Posttraumatic stress disorder 309.81 and Attention deficit disorder of childhood without mention of hyperactivity 314.00 [facility] [address] [facility] [id number] [address] [place] [address] May, [facility] [address] [id number] [address] [place] [address] May, [facility] [address] [facility] [id number] [address] [place] [address] May, Schizoaffective disorder, ch ronic 295.72 ; Posttraumatic stress disorder 309.81 ; Attention deficit disorder of childhood without mention of hyperactivity 314.00 and Bipolar disorder, unspecified 296.80 [facility] [address] [id number] [address] [place] [address] Apr, Schizoaffective disorder, ch ronic 295.72 [facility] [address] [id number] [address] [place] [address] Apr, [facility] [address] [id number] [address] [place] [address] Apr, Schizoaffective disorder, ch ronic 295.72 ; Posttraumatic stress disorder 309.81 and Attention deficit disorder of childhood without mention of hyperactivity 314.00 [facility] [address] [id number] [address] [place] [address] Mar, Disorganized schizophrenia, 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 [facility] [address] [id number] [address] [place] [address] Mar, [facility] [address] [id number] [address] [place] [address] Mar, [facility] [address] [facility] [id number] [address] [place] [address] Mar, [facility] [address] [id number] [address] [place] [address] Mar, [facility] [address] [facility] [id number] [address] [place] [address] February, Schizoaffective disorder, ch ronic 295.72 [facility] [address] [facility] [id number] [address] [place] [address] February, [facility] [address] [id number] [address] [place] [address] February, Attention 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 ; Posttraumatic stress disorder 309.81 and Schizoaffective disorder, chronic 295.72 [facility] [address] [id number] [address] [place] [address] Jan, [facility] [address] [id number] [address] [place] [address] Jan, [facility] [address] [id number] [address] [place] [address], [place] [address] Jan, [facility] [address] [id number] [address] [place] [address], [place] [address] Dec, [facility] [address] [id number] [address] [place] [address], [place] [address] Dec, [facility] [address] [id number] [address] [place] [address], [place] [address] Dec, [facility] [address] [id number] [address] [place] [address], [place] [address] Dec, [facility] [address] [id number] [address] [place] [address], [place] [address] Dec, [facility] [address] [id number] [address] [place] [address], [place] [address] Dec, [facility] [address] [id number] [address] [place] [address], [place] [address] Dec, [facility] [address] [id number] [address] [place] [address], [place] [address] Dec, [facility] [address] [id number] [address] [place] [address], [place] [address] Nov, [facility] [address] [id number] [address] [place] [address], [place] [address] Nov, [facility] [address] [id number] [address] [place] [address], [place] [address] Nov, [facility] [address] [id number] [address] [place] [address], [place] [address] Nov, [facility] [address] [id number] [address] [place] [address], [place] [address] Nov, [facility] [address] [id number] [address] [place] [address], [place] [address] Nov, 2014 [facility] [address] [id number] [address] [place] [address], [place] [address] Nov, [facility] [address] [id number] [address] [place] [address], [place] [address] Nov, [facility] [address] [id number] [address] [place] [address], [place] [address] Nov, [facility] [address] [id number] [address] [place] [address], [place] [address] Nov, [facility] [address] [id number] [address] [place] [address], [place] [address] Oct, [facility] [address] [id number] [address] [place] [address], [place] [address] Oct, [facility] [address] [id number] [address] [place] [address], [place] [address] Oct, [facility] [address] [id number] [address] [place] [address], [place] [address] Oct, [facility] [address] [id number] [address] [place] [address], [place] [address] Oct, [facility] [address] [id number] [address] [place] [address], [place] [address] Oct, [facility] [address] [id number] [address] [place] [address], [place] [address] Oct, [facility] [address] [id number] [address] [place] [address], [place] [address] Sep, [facility] [address] [id number] [address] [place] [address], [place] [address] Sep, [facility] [address] [id number] [address] [place] [address], [place] [address] Sep, [facility] [address] [id number] [address] [place] [address], [place] [address] Sep, [facility] [address] [id number] [address] [place] [address], [place] [address] Aug, [facility] [address] [id number] [address] [place] [address], [place] [address] Aug, [facility] [address] [id number] [address] [place] [address], [place] [address] Aug, [facility] [address] [id number] [address] [place] [address], [place] [address] Aug, [facility] [address] [id number] [address] [place] [address], [place] [address] Aug, [facility] [address] [id number] [address] [place] [address], [place] [address] Aug, [facility] [address] [id number] [address] [place] [address], [place] [address] Jul, [facility] [address] [id number] [address] [place] [address], [place] [address] Jul, [facility] [address] [id number] [address] [place] [address], [place] [address] Jul, [facility] [address] [id number] [address] [place] [address], [place] [address] Jul, [facility] [address] [id number] [address] [place] [address], [place] [address] Jul, [facility] [address] [id number] [address] [place] [address], [place] [address] Jul, [facility] [address] [id number] [address] [place] [address], [place] [address] 27 Jun, 2014 [facility] [address] [id number] [address] [place] [address], [place] [address] 27 Jun, 2014 [facility] [address] [id number] [address] [place] [address], [place] [address] 26 Jun, 2014 [facility] [address] [id number] [address] [place] [address], [place] [address] 26 Jun, 2014 [facility] [address] [id number] [address] [place] [address], [place] [address] Jun, [facility] [address] [id number] [address] [place] [address], [place] [address] Jun, 2013 [facility] [address] [id number] [address] [place] [address], [place] [address] Jun, [facility] [address] [id number] [address] [place] [address], [place] [address] Jun, 2013 [facility] [address] [id number] [address] [place] [address], [place] [address] Jun, 2013 [facility] [address] [id number] [address] [place] [address], [place] [address] Jun, [facility] [address] [id number] [address] [place] [address], [place] [address] Jun, [facility] [address] [id number] [address] [place] [address], [place] [address] May, [facility] [address] [id number] [address] [place] [address], [place] [address] May, [facility] [address] [id number] [address] [place] [address], [place] [address] May, [facility] [address] [id number] [address] [place] [address], [place] [address] May, [facility] [address] [id number] [address] [place] [address], [place] [address] May, [facility] [address] [id number] [address] [place] [address], [place] [address] May, [facility] [address] [id number] [address] [place] [address], [place] [address] May, [facility] [address] [id number] [address] [place] [address], [place] [address] May, [facility] [address] [id number] [address] [place] [address], [place] [address] May, [facility] [address] [id number] [facility] [place] [address] May, [facility] [address] [id number] [facility] [place] [address] Apr, [facility] [address] [id number] [facility] [place] [address] Apr, [facility] [address] [id number] [address] [place] [address], [place] [address] Apr, [facility] [address] [id number] [address] [place] [address], [place] [address] Apr, [facility] [address] [id number] [address] [place] [address], [place] [address] Apr, [facility] [address] [id number] [address] [place] [address], [place] [address] Apr, [facility] [address] [id number] [address] [place] [address], [place] [address] Apr, [facility] [address] [id number] [address] [place] [address], [place] [address] Apr, [facility] [address] [id number] [address] [place] [address], [place] [address] Apr, [facility] [address] [id number] [address] [place] [address], [place] [address] Apr, [facility] [address] [id number] [address] [place] [address], [place] [address] Mar, [facility] [address] [id number] [address] [place] [address], [place] [address] Mar, [facility] [address] [id number] [address] [place] [address], [place] [address] Mar, [facility] [address] [id number] [address] [place] [address], [place] [address] Mar, [facility] [address] [id number] [address] [place] [address], [place] [address] Mar, [facility] [address] [id number] [address] [place] [address], [place] [address] 18 Mar, 2014 [facility] [address] [id number] [address] [place] [address], [place] [address] 18 Mar, 2014 [facility] [address] [id number] [address] [place] [address], [place] [address] 16 Mar, 2014 [facility] [address] [id number] [address] [place] [address], [place] [address] 16 Mar, 2014 [facility] [address] [id number] [address] [place] [address], [place] [address] Mar, [facility] [address] [id number] [address] [place] [address], [place] [address] Mar, [facility] [address] [id number] [address] [place] [address], [place] [address] Mar, [facility] [address] [id number] [address] [place] [address], [place] [address] Mar, [facility] [address] [id number] [address] [place] [address], [place] [address] Mar, [facility] [address] [id number] [address] [place] [address], [place] [address] Mar, [facility] [address] [id number] [address] [place] [address], [place] [address] Mar, [facility] [address] [id number] [address] [place] [address] Mar, [facility] [address] [id number] [address] [place] [address], [place] [address] Mar, [facility] [address] [id number] [address] [place] [address], [place] [address] 04 Mar, 2014 [facility] [address] [id number] [address] [place] [address], [place] [address] 04 Mar, 2014 [facility] [address] [id number] [address] [place] [address], [place] [address] February, [facility] [address] [id number] [address] [place] [address], [place] [address] February, [facility] [address] [id number] [address] [place] [address], [place] [address] February, [facility] [address] [id number] [address] [place] [address], [place] [address] February, [facility] [address] [id number] [address] [place] [address], [place] [address] February, [facility] [address] [id number] [address] [place] [address], [place] [address] February, [facility] [address] [id number] [address] [place] [address], [place] [address] February, [facility] [address] [id number] [address] [place] [address], [place] [address] February, [facility] [address] [id number] [address] [place] [address], [place] [address] February, [facility] [address] [id number] [address] [place] [address], [place] [address] February, [facility] [address] [id number] [address] [place] [address], [place] [address] February, [facility] [address] [id number] [address] [place] [address], [place] [address] February, [facility] [address] [id number] [address] [place] [address], [place] [address] February, [facility] [address] [id number] [address] [place] [address], [place] [address] February, [facility] [address] [id number] [address] [place] [address], [place] [address] February, [facility] [address] [id number] [address] [place] [address], [place] [address] February, [facility] [address] [id number] [address] [place] [address], [place] [address] February, [facility] [address] [id number] [address] [place] [address], [place] [address] February, [facility] [address] [id number] [address] [place] [address], [place] [address] February, [facility] [address] [id number] [address] [place] [address], [place] [address] February, [facility] [address] [id number] [address] [place] [address], [place] [address] February, [facility] [address] [id number] [address] [place] [address], [place] [address] Jan, [facility] [address] [id number] [address] [place] [address], [place] [address] Jan, [facility] [address] [id number] [address] [place] [address], [place] [address] Jan, [facility] [address] [id number] [address] [place] [address], [place] [address] Jan, [facility] [address] [id number] [address] [place] [address], [place] [address] Jan, [facility] [address] [id number] [address] [place] [address], [place] [address] Jan, [facility] [address] [id number] [address] [place] [address], [place] [id number] Jan, [facility] [address] [id number] [address] [place] [address], [place] [id number] Jan, [facility] [address] [id number] [address] [place] [address], [place] [address] Dec, [facility] [address] [id number] [address] [place] [address], [place] [id number] Dec, [facility] [address] [id number] [address] [place] [address], [place] [id number] 20 Dec, 2013 [facility] [address] [id number] [facility] [place] [id number] 19 Dec, 2013 [facility] [address] [id number] [address] [place] [address], [place] [id number] 19 Dec, 2013 [facility] [address] [id number] [address] [place] [address], [place] [id number] 15 Dec, 2013 [facility] [address] [id number] [address] [place] [address], [place] [id number] 15 Dec, 2013 [facility] [address] [id number] [address] [place] [address], [place] [address] 11 Dec, 2013 [facility] [address] [id number] [address] [place] [address], [place] [id number] 10 Dec, 2013 [facility] [address] [id number] [address] [place] [address], [place] [id number] 10 Dec, 2013 [facility] [address] [id number] [address] [place] [address], [place] [id number] 18 Nov, 2013 [facility] [address] [id number] [address] [place] [address], [place] [id number] 17 Nov, 2013 [facility] [address] [id number] [address] [place] [address], [place] [id number] 17 Nov, 2013 [facility] [address] [id number] [address] [place] [address], [place] [id number] 05 Nov, 2013 [facility] [address] [id number] [address] [place] [address], [place] [address] Nov, [facility] [address] [id number] [address] [place] [address], [place] [id number] Oct, [facility] [address] [id number] [address] [place] [address], [place] [id number] Oct, [facility] [address] [id number] [address] [place] [address], [place] [id number] 16 Oct, 2013 [facility] [address] [id number] [address] [place] [address], [place] [id number] Sep, [facility] [address] [id number] [address] [place] [address], [place] [id number] Sep, [facility] [address] [id number] [address] [place] [address], [place] [id number] Sep, [facility] [address] [id number] [address] [place] [address], [place] [address] Sep, [facility] [address] [id number] [address] [place] [address], [place] [address] Aug, [facility] [address] [id number] [address] [place] [address], [place] [address] Aug, [facility] [address] [id number] [address] [place] [address], [place] [address] Jul, [facility] [address] [id number] [address] [place] [address], [place] [id number] Jul, [facility] [address] [id number] [address] [place] [address], [place] [id number] Jul, [facility] [address] [id number] [address] [place] [address], [place] [id number] Jul, [facility] [address] [id number] [address] [place] [address], [place] [id number] Jul, [facility] [address] [id number] [address] [place] [address], [place] [id number] 25 Jun, 2012 [facility] [address] [id number] [address] [place] [address], [place] [id number] 25 Sep, 2012 [facility] [address] [id number] [address] [place] [address], [place] [id number] 19 Sep, 2012 [facility] [address] [id number] [address] [place] [address], [place] [id number] 18 Sep, 2012 [facility] [address] [id number] [address] [place] [address], [place] [id number] 16 Jun, 2013 [facility] [address] [id number] [address] [place] [address], [place] [id number] 12 Jun, 2013 [facility] [address] [id number] [address] [place] [address], [place] [address] Jun, [facility] [address] [id number] [address] [place] [address], [place] [id number] May, [facility] [address] [id number] [address] [place] [address], [place] [address] May[facility] [facility] [address] [id number] [address] [place] [address], [place] [address] Apr, [facility] [address] [id number] [address] [place] [address], [place] [address] Apr, [facility] [address] [id number] [address] [place] [address], [place] [address] Apr, [facility] [address] [id number] [address] [place] [address], [place] [id number] Mar, [facility] [address] [id number] [address] [place] [address], [place] [address] Mar, [facility] [address] [id number] [address] [place] [address], [place] [address] February, [facility] [address] [id number] [address] [place] [address], [place] [address] February, [facility] [address] [id number] [address] [place] [address], [place] [address] February, [facility] [address] [id number] [address] [place] [address], [place] [address] February, [facility] [address] [id number] [address] [place] [address], [place] [address] Jan, [facility] [address] [id number] [address] [place] [address], [place] [address] Jan, [facility] [address] [id number] [address] [place] [address] 16 Jan, 2013 [facility] [address] [id number] [address] [place] [address], [place] [address] 29 Dec, 2012 [facility] [address] [id number] [address] [place] [address], [place] [address] Dec, [facility] [address] [id number] [address] [place] [address], [place] [address] Dec, [facility] [address] [id number] [address] [place] [address], [place] [address] 08 Dec, 2012 [facility] [address] [id number] [address] [place] [address], [place] [address] Nov, [facility] [address] [id number] [address] [place] [address], [place] [address] Nov, [facility] [address] [id number] [address] [place] [address], [place] [address] Oct, [facility] [address] [id number] [address] [place] [address], [place] [address] Oct, [facility] [address] [id number] [address] [place] [address], [place] [address] Oct, [facility] [address] [id number] [address] [place] [address], [place] [address] Oct, [facility] [address] [id number] [address] [place] [address], [place] [address] Aug, [facility] [address] [id number] [address] [place] [address], [place] [address] Aug, [facility] [address] [id number] [address] [place] [address], [place] [address] Jun, [facility] [address] [id number] [address] [place] [address], [place] [address] May, [facility] [address] [id number] [address] [place] [address], [place] [address] May, [facility] [address] [id number] [address] [place] [address], [place] [address] Apr, [facility] [address] [id number] [address] [place] [address], [place] [address] Apr, [facility] [address] [id number] [address] [place] [address], [place] [address] Apr, [facility] [address] [id number] [address] [place] [address], [place] [address] Mar, [facility] [address] [id number] [address] [place] [address], [place] [address] Mar, [facility] [address] [id number] [address] [place] [address], [place] [address] Mar, [facility] [address] [id number] [address] [place] [address], [place] [address] Mar, [facility] [address] [id number] [address] [place] [address], [place] [address] Mar, [facility] [address] [id number] [address] [place] [address], [place] [address] February, [facility] [address] [id number] [address] [place] [address], [place] [address] February, [facility] [address] [id number] [address] [place] [address], [place] [address] February, [facility] [address] [id number] [address] [place] [address], [place] [address] February, [facility] [address] [id number] [address] [place] [address], [place] [address] February, [facility] [address] [id number] [address] [place] [address], [place] [address] February, [facility] [address] [id number] [address] [place] [address], [place] [address] February, [facility] [address] [id number] [address] [place] [address], [place] [address] 25 Jan, 2012 [facility] [address] [id number] [address] [place] [address], [place] [address] 18 Jan, 2012 [facility] [address] [id number] [address] [place] [address], [place] [address] 17 Jan, 2012 [facility] [address] [id number] [address] [place] [address], [place] [address] 13 Jan, 2012 [facility] [address] [id number] [address] [place] [address], [place] [address] 10 Jan, 2012 [facility] [address] [id number] [address] [place] [address], [place] [address] 04 Jan, 2012 [facility] [address] [id number] [address] [place] [address], [place] [address] 30 Dec, 2011 [facility] [address] [id number] [address] [place] [address], [place] [address] 24 Dec, 2011 [facility] [address] [id number] [address] [place] [address], [place] [address] 20 Dec, 2011 [facility] [address] [id number] [address] [place] [address], [place] [address] 13 Dec, 2011 [facility] [address] [id number] [address] [place] [address], [place] [address] 06 Dec, 2011 [facility] [address] [id number] [address] [place] [address], [place] [address] 28 Nov, 2011 [facility] [address] [id number] [address] [place] [address], [place] [address] 27 Nov, 2011 [facility] [address] [id number] [address] [place] [address], [place] [address] 25 Nov, 2011 [facility] [address] [id number] [address] [place] [address], [place] [address] 14 Nov, 2011 [facility] [address] [id number] [address] [place] [address], [place] [address] 10 Nov, 2011 [facility] [address] [id number] [address] [place] [address], [place] [address] Nov, [facility] [address] [id number] [address] [place] [address], [place] [address] Oct, [facility] [address] [id number] [address] [place] [address], [place] [address] Oct, [facility] [address] [id number] [address] [place] [address], [place] [address] Oct, [facility] [address] [id number] [address] [place] [address], [place] [address] Oct, [facility] [address] [id number] [address] [place] [address], [place] [address] Oct, [facility] [address] [id number] [address] [place] [address], [place] [address] Sep, [facility] [address] [id number] [address] [place] [address], [place] [address] Sep, [facility] [address] [id number] [address] [place] [address], [place] [address] Sep, [facility] [address] [id number] [address] [place] [address], [place] [address] 14 Sep, 2011 [facility] [address] [id number] [address] [place] [address], [place] [address] 14 Sep, 2011 [facility] [address] [id number] [address] [place] [address], [place] [address] 13 Sep, 2011 [facility] [address] [id number] [address] [place] [address], [place] [address] 12 Sep, 2011 [facility] [address] [id number] [address] [place] [address], [place] [address] 09 Sep, 2011 [facility] [address] [id number] [address] [place] [address], [place] [address] 05 Sep, 2011 [facility] [address] [id number] [address] [place], [place] [address] [address] Aug, [facility] [address] [id number] [address] [place] [address], [place] [address] Aug, [facility] [address] [id number] [address] [place] [address], [place] [address] Aug, [facility] [address] [id number] [address] [place] [address], [place] [address] Aug, [facility] [address] [id number] [address] [place] [address], [place] [address] Aug, [facility] [address] [id number] [address] [place] [address], [place] [address] Aug, [facility] [address] [id number] [address] [place] [address], [place] [address] Aug, [facility] [address] [id number] [address] [place] [address], [place] [address] Aug, [facility] [address] [id number] [address] [place] [address], [place] [address] Aug, [facility] [address] [id number] [address] [place] [address], [place] [address] Aug, [facility] [address] [id number] [address] [place] [address], [place] [address] Aug, [facility] [address] [id number] [address] [place] [address] Aug, [facility] [address] [id number] [address] [place] [address] Jul, [facility] [address] [id number] [address] [place] [address], [place] [address] Jul, [facility] [address] [id number] [address] [place] [address] Jul, [facility] [address] [id number] [address] [place] [address] Jul, [facility] [address] [id number] [address] [place] [address] Jul, [facility] [address] [id number] [address] [place] [address] Jul, [facility] [address] [id number] [address] [place] [address] Jul, [facility] [address] [id number] [address] [place] [address] Jul, [facility] [address] [id number] [address] [place] [address] Jul, [facility] [address] [id number] [address] [place] [address] Jul, [facility] [address] [id number] [address] [place] [address] Nov, [facility] [address] [id number] [address] [place] [address] Aug, [facility] [address] [id number] [address] [place] [address] Aug, [facility] [address] [id number] [address] [place] [address] Aug, [facility] [address] [id number] [address] [place] [address] Aug, [facility] [address] [id number] [address] [place] [address] Jul, IMMUNIZATIONS No Known Immunizations SOCIAL HISTORY [...] Suicide attempt by hanging 2015 Hospitalization History [facility] 01/30/2018-02/10/20 08 Hospitalization History [facility] 05/04/18-
--- OUTSIDE RECORDS SUMMARY | 2020-04-04 01:58 | XMS REPORT ---
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 939368165 Problem Disorganized schizophrenia, 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 74764755 Problem Paranoid schizophrenia F20.0 Active 52316683 Problem Borderline personality disorder F60.3 Active 03490172 Problem Paranoid schizophrenia, unspecified condition 295.30 Active 08522830 Problem Schizoaffective disorder, depressive type F25.1 Active 60544490 Problem Bipolar disorder, unspecified 296.80 Active 39126444 Problem Schizoaffective disorder, unspecified F25.9 Active 99149625 Problem Attention deficit hyperactivity disorder (ADHD), inattentive type, 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 00265970 Problem Posttraumatic stress disorder F43.10 Active 95412001 Problem High risk medication use Z79.899 Activ e [id number] ALLERGIES No Information ENCOUNTERS Encounter Location Date Diagnosis [facility] [address] [facility] [id number] [address] [place] [phone] Jun, Paranoid schizophrenia F20.0 ; Attention deficit hyperactivity disorder (ADHD), inattentive type, 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 ; Posttraumatic stress disorder F43.10 ; Borderline personality disorder F60.3 and Other longterm (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 Z79.899 [facility] [address] [facility] [id number] [address] [place] [phone] Apr, Paranoid schizophrenia F20.0 ; Posttraumatic stress disorder F43.10 ; Attention deficit hyperactivity disorder (ADHD), inattentive type, 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 and Borderline personality disorder F60.3 [facility] [address] [id number] [address] [place] [phone] Apr, Paranoid schizophrenia F20.0 [facility] [address] [id number] [address] [place] [phone] Apr, Paranoid schizophrenia F20.0 ; Posttraumatic stress disorder F43.10 ; Attention deficit hyperactivity disorder (ADHD), inattentive type, 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 and Borderline personality disorder F60.3 [facility] [address] [id number] [address] [place] [phone] Mar, Paranoid schizophrenia F20.0 [facility] [address] [id number] [address] [place] [phone] Mar, Paranoid schizophrenia F20.0 ; Posttraumatic stress disorder F43.10 ; Attention deficit hyperactivity disorder (ADHD), inattentive type, 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 and Borderline personality disorder F60.3 [facility] [address] [id number] [address] [place] [phone] February, Paranoid schizophrenia F20.0 [facility] [address] [id number] [address] [place] [phone] Jan, Paranoid schizophrenia F20.0 ; Posttraumatic stress disorder F43.10 ; Attention deficit hyperactivity disorder (ADHD), inattentive type, 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 and Borderline personality disorder F60.3 [facility] [address] [id number] [address] [place] [phone] Dec, Paranoid schizophrenia F20.0 ; Posttraumatic stress disorder F43.10 ; Attention deficit hyperactivity disorder (ADHD), inattentive type, 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 and Borderline personality disorder F60.3 [facility] [address] [id number] [address] [place] [phone] Dec, Paranoid schizophrenia F20.0 ; Posttraumatic stress disorder F43.10 ; Attention deficit hyperactivity disorder (ADHD), inattentive type, 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 and Borderline personality disorder F60.3 [facility] [address] [facility] [id number] [address] [place] [phone] Oct, Paranoid schizophrenia F20.0 ; Posttraumatic stress disorder F43.10 ; Attention deficit hyperactivity disorder (ADHD), inattentive type, 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 and Borderline personality disorder F60.3 [facility] [address] [facility] [id number] [address] [place] [phone] Oct, Paranoid schizophrenia F20.0 ; Posttraumatic stress disorder F43.10 ; Attention deficit hyperactivity disorder (ADHD), inattentive type, 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 and Borderline personality disorder F60.3 [facility] [address] [facility] [id number] [address] [place] [phone] Aug, [facility] [address] [facility] [id number] [address] [place] [phone] Aug, Paranoid schizophrenia F20.0 ; Posttraumatic stress disorder F43.10 ; Attention deficit hyperactivity disorder (ADHD), inattentive type, 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 and Borderline personality disorder F60.3 [facility] [address] [facility] [id number] [address] [place] [phone] Jul, Dry skin dermatitis L85.3 [facility] [address] [facility] [id number] [address] [place] [phone] Jul, [facility] [address] [facility] [id number] [address] [place] [phone] Jul, Paranoid schizophrenia F20.0 [facility] [address] [facility] [id number] [address] [place] [phone] May, Paranoid schizophrenia F20.0 ; Posttraumatic stress disorder F43.10 ; Attention deficit hyperactivity disorder (ADHD), inattentive type, 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 and Borderline personality disorder F60.3 [facility] [address] [facility] [id number] [address] [place] [phone] May, [place] [address] [id number] [address] [address] May, Paranoid schizophrenia F20.0 [facility] [address] [id number] [address] [place] [address], [place] [id number] May, Paranoid schizophrenia F20.0 ; Posttraumatic stress disorder F43.10 ; Attention deficit hyperactivity disorder (ADHD), inattentive type, 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 and Borderline personality disorder F60.3 [facility] [address] [id number] [address] [place] [address], [place] [id number] Apr, [facility] [address] [id number] [address] [place] [address], [place] [id number] Apr, Paranoid schizophrenia F20.0 ; Posttraumatic stress disorder F43.10 ; Attention deficit hyperactivity disorder (ADHD), inattentive type, 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 and Borderline personality disorder F60.3 [facility] [address] [id number] [address] [place] [phone] Apr, [facility] [address] [id number] [address] [place] [phone] Apr, Schizoaffective disorder, de pressive type F25.1 and Borderline personality disorder F60.3 [facility] [address] [id number] [address] [place] [phone] Apr, Paranoid schizophrenia F20.0 ; Posttraumatic stress disorder F43.10 ; Attention deficit hyperactivity disorder (ADHD), inattentive type, 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 and Borderline personality disorder F60.3 [facility] [address] [id number] [address] [place] [phone] Apr, [facility] [address] [id number] [address] [place] [phone] Apr, Paranoid schizophrenia F20.0 ; Posttraumatic stress disorder F43.10 ; Attention deficit hyperactivity disorder (ADHD), inattentive type, 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 and Borderline personality disorder F60.3 [facility] [address] [id number] [address] [place] [phone] Apr, [facility] [address] [id number] [address] [place] [phone] Mar, Paranoid schizophrenia F20.0 [facility] [address] [id number] [address] [place] [phone] Mar, [facility] [address] [id number] [address] [place] [phone] Mar, Paranoid schizophrenia F20.0 ; Posttraumatic stress disorder F43.10 ; Attention deficit hyperactivity disorder (ADHD), inattentive type, 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 and Borderline personality disorder F60.3 [facility] [address] [id number] [address] [place] [phone] February, Paranoid schizophrenia F20.0 [facility] [address] [id number] [address] [place] [phone] February, Paranoid schizophrenia F20.0 ; Posttraumatic stress disorder F43.10 ; Attention deficit hyperactivity disorder (ADHD), inattentive type, 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 and Borderline personality disorder F60.3 [facility] [address] [id number] [address] [place] [phone] February, Paranoid schizophrenia F20.0 ; Posttraumatic stress disorder F43.10 ; Attention deficit hyperactivity disorder (ADHD), inattentive type, 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 and Borderline personality disorder F60.3 [facility] [address] [id number] [address] [place] [phone] February, [facility] [address] [id number] [address] [place] [phone] February, Paranoid schizophrenia F20.0 [facility] [address] [id number] [address] [place] [phone] February, Paranoid schizophrenia F20.0 [facility] [address] [id number] [address] [place] [phone] February, Paranoid schizophrenia F20.0 ; Posttraumatic stress disorder F43.10 ; Attention deficit hyperactivity disorder (ADHD), inattentive type, 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 and Borderline personality disorder F60.3 [facility] [address] [id number] [address] [place] [phone] Jan, Paranoid schizophrenia F20.0 ; Posttraumatic stress disorder F43.10 ; Attention deficit hyperactivity disorder (ADHD), inattentive type, 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 and Borderline personality disorder F60.3 [facility] [address] [id number] [address] [place] [phone] Jan, Paranoid schizophrenia F20.0 [facility] [address] [id number] [address] [place] [phone] Jan, Paranoid schizophrenia F20.0 [facility] [address] [facility] [id number] [address] [place] [phone] Jan, Paranoid schizophrenia F20.0 ; Posttraumatic stress disorder F43.10 ; Attention deficit hyperactivity disorder (ADHD), inattentive type, 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 and Borderline personality disorder F60.3 [facility] [address] [id number] [address] [place] [phone] Dec, [facility] [address] [id number] [address] [place] [phone] Nov, Paranoid schizophrenia F20.0 ; Posttraumatic stress disorder F43.10 ; Attention deficit hyperactivity disorder (ADHD), inattentive type, 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 and Borderline personality disorder F60.3 [facility] [address] [id number] [address] [place] [phone] Nov, [facility] [address] [facility] [id number] [address] [place] [phone] Oct, Paranoid schizophrenia F20.0 [facility] [address] [facility] [id number] [address] [place] [phone] Oct, Paranoid schizophrenia F20.0 ; Posttraumatic stress disorder F43.10 ; Attention deficit hyperactivity disorder (ADHD), inattentive type, 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 ; Borderline personality disorder F60.3 and Other longterm (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 Z79.899 [facility] [address] [id number] [address] [place] [phone] Oct, [facility] [address] [facility] [id number] [address] [place] [phone] Oct, [facility] [address] [facility] [id number] [address] [place] [phone] Sep, [facility] [address] [facility] [id number] [address] [place] [phone] Sep, Paranoid schizophrenia F20.0 ; Posttraumatic stress disorder F43.10 ; Attention deficit hyperactivity disorder (ADHD), inattentive type, 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 and Borderline personality disorder F60.3 [facility] [address] [facility] [id number] [address] [place] [phone] Sep, Paranoid schizophrenia F20.0 [facility] [address] [facility] [id number] [address] [place] [phone] Aug, Paranoid schizophrenia F20.0 ; Posttraumatic stress disorder F43.10 ; Attention deficit hyperactivity disorder (ADHD), inattentive type, 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 and Borderline personality disorder F60.3 [facility] [address] [facility] [id number] [address] [place] [phone] Aug, Paranoid schizophrenia F20.0 ; Posttraumatic stress disorder F43.10 ; Attention deficit hyperactivity disorder (ADHD), inattentive type, 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 and Borderline personality disorder F60.3 [facility] [address] [facility] [id number] [address] [place] [phone] Aug, [facility] [address] [facility] [id number] [address] [place] [phone] Jul, Paranoid schizophrenia F20.0 ; Posttraumatic stress disorder F43.10 ; Attention deficit hyperactivity disorder (ADHD), inattentive type, 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 and Borderline personality disorder F60.3 [facility] [address] [facility] [id number] [address] [place] [phone] Jul, Paranoid schizophrenia F20.0 [facility] [address] [id number] [address] [place] [phone] Jul, Paranoid schizophrenia F20.0 ; Posttraumatic stress disorder F43.10 ; Attention deficit hyperactivity disorder (ADHD), inattentive type, 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 and Borderline personality disorder F60.3 [facility] [address] [id number] [address] [place] [phone] Jun, Paranoid schizophrenia F20.0 ; Posttraumatic stress disorder F43.10 ; Attention deficit hyperactivity disorder (ADHD), inattentive type, 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 and Borderline personality disorder F60.3 [facility] [address] [id number] [address] [place] [phone] May, Other intermediate frame tender (current) dr ug therapy Z79.899 [facility] [address] [id number] [address] [place] [phone] May, [facility] [address] [id number] [address] [place] [phone] May, [facility] [address] [id number] [address] [place] [phone] May, Attention deficit hyperactiv ity disorder (ADHD), inattentive type, mild F90.0 [facility] [address] [id number] [address] [place] [phone] May, [facility] [address] [id number] [address] [place] [phone] May, Attention deficit hyperactiv ity disorder (ADHD), inattentive type, mild F90.0 [facility] [address] [id number] [address] [place] [phone] May, Paranoid schizophrenia F20.0 ; Posttraumatic stress disorder F43.10 ; Attention deficit hyperactivity disorder (ADHD), inattentive type, 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 and Other intermediate frame tender (current) drug therapy Z79.899 [facility] [address] [id number] [address] [place] [phone] Apr, Paranoid schizophrenia F20.0 [facility] [address] [id number] [address] [place] [phone] Apr, Paranoid schizophrenia F20.0 ; Posttraumatic stress disorder F43.10 and Attention deficit hyperactivity disorder (ADHD), inattentive type, 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 [facility] [address] [id number] [address] [place] [phone] February, [facility] [address] [id number] [address] [place] [phone] February, Paranoid schizophrenia F20.0 ; Posttraumatic stress disorder F43.10 and Attention deficit hyperactivity disorder (ADHD), inattentive type, 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 [facility] [address] [id number] [address] [place] [phone] February, Paranoid schizophrenia F20.0 ; Posttraumatic stress disorder F43.10 and Attention deficit hyperactivity disorder (ADHD), inattentive type, 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 [facility] [address] [id number] [address] [place] [phone] Jan, Paranoid schizophrenia F20.0 ; Posttraumatic stress disorder F43.10 and Attention deficit hyperactivity disorder (ADHD), inattentive type, 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 [facility] [address] [id number] [address] [place] [id number] Dec, Dental examination Z01.20 [facility] [address] [id number] [address] [place] [address] [id number] Nov, Dental examination Z01.20 [facility] [address] [id number] [address] [place] [id number] Nov, Dental examination Z01.20 [facility] [address] [id number] [address] [place] [address] [id number] Nov, Dental caries K02.9 [facility] [address] [id number] [address] [place] [phone] 13 Nov, 2016 High risk medication use Z79 .899 [facility] [address] [id number] [address] [place] [phone] Nov, Paranoid schizophrenia F20.0 ; Posttraumatic stress disorder F43.10 ; Attention deficit hyperactivity disorder (ADHD), inattentive type, 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 and Borderline personality disorder in adult F60.3 [facility] [address] [id number] [address] [place] [address] [id number] Oct, Dental caries K02.9 [facility] [address] [id number] [address] [place] [phone] Sep, Paranoid schizophrenia F20.0 ; Posttraumatic stress disorder F43.10 and Attention deficit hyperactivity disorder (ADHD), inattentive type, 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 [facility] [address] [id number] [address] [place] [phone] Aug, Paranoid schizophrenia F20.0 ; Posttraumatic stress disorder F43.10 and Attention deficit hyperactivity disorder (ADHD), inattentive type, 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 [facility] [address] [id number] [address] [place] [phone] Aug, Strep throat J02.0 and Cough R05 [facility] [address] [id number] [address] [place] [phone] Aug, [facility] [address] [facility] [id number] [address] [place] [phone] Jul, Paranoid schizophrenia F20.0 ; Posttraumatic stress disorder F43.10 and Attention deficit hyperactivity disorder (ADHD), inattentive type, 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 [facility] [address] [facility] [id number] [address] [place] [phone] Jul, [facility] [address] [id number] [address] [place] [phone] Jun, Paranoid schizophrenia F20.0 ; Posttraumatic stress disorder F43.10 and Attention deficit hyperactivity disorder (ADHD), inattentive type, 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 [facility] [address] [id number] [address] [place] [id number] Jun, Dental examination Z01.20 [facility] [address] [id number] [address] [place] [phone] Jun, [facility] [address] [id number] [address] [place] [phone] May, Paranoid schizophrenia F20.0 [facility] [address] [id number] [address] [place] [phone] May, Paranoid schizophrenia F20.0 ; Posttraumatic stress disorder F43.10 and Attention deficit hyperactivity disorder (ADHD), inattentive type, 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 [facility] [address] [id number] [address] [place] [phone] May, [facility] [address] [id number] [address] [place] [phone] May, Paranoid schizophrenia F20.0 [facility] [address] [id number] [address] [place] [phone] May, [facility] [address] [id number] [address] [place] [phone] May, Paranoid schizophrenia F20.0 [facility] [address] [id number] [address] [place] [phone] May, Schizoaffective disorder, un specified F25.9 [facility] [address] [id number] [address] [place] [phone] May, Schizoaffective disorder, un specified F25.9 [facility] [address] [id number] [address] [place] [phone] May, [facility] [address] [id number] [address] [place] [phone] May, Paranoid schizophrenia F20.0 [facility] [address] [id number] [address] [place] [phone] May, Paranoid schizophrenia F20.0 ; Posttraumatic stress disorder F43.10 and Attention deficit hyperactivity disorder (ADHD), inattentive type, 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 [facility] [address] [id number] [address] [place] [address], [place] [phone] Mar, [facility] [address] [id number] [address] [place] [address], [place] [id number] Mar, Paranoid schizophrenia F20.0 ; Posttraumatic stress disorder F43.10 and Attention deficit hyperactivity disorder (ADHD), inattentive type, 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 [facility] [address] [id number] [address] [place] [address], [place] [phone] Mar, Paranoid schizophrenia F20.0 [facility] [address] [id number] [address] [place] [address], [place] [id number] Mar, Paranoid schizophrenia F20.0 ; Attention deficit hyperactivity disorder (ADHD), inattentive type, 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 and Posttraumatic stress disorder F43.10 [facility] [address] [id number] [address] [place] [phone] Mar, [facility] [address] [id number] [address] [place] [address], [place] [id number] Mar, Paranoid schizophrenia F20.0 ; Posttraumatic stress disorder F43.10 and Attention deficit hyperactivity disorder (ADHD), inattentive type, 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 [facility] [address] [id number] [address] [place] [address], [place] [id number] February, [facility] [address] [id number] [address] [place] [phone] February, [facility] [address] [id number] [address] [place] [address], [place] [id number] February, [facility] [address] [id number] [address] [place] [phone] February, [facility] [address] [id number] [address] [place] [address], [place] [id number] Jan, Paranoid schizophrenia F20.0 [facility] [address] [id number] [address] [place] [address] [id number] Jan, Dental examination Z01.20 [facility] [address] [id number] [address] [place] [address] [id number] Jan, Dental caries K02.9 [facility] [address] [id number] [address] [place] [address] [id number] Jan, Dental examination Z01.20 [facility] [address] [id number] [address] [place] [address] [id number] Dec, Encounter for dental examina tion Z01.20 [facility] [address] [id number] [address] [place] [phone] Dec, Paranoid schizophrenia F20.0 [facility] [address] [id number] [address] [place] [address] [id number] Dec, Dental examination Z01.20 [facility] [address] [id number] [address] [place] [phone] Dec, [facility] [address] [id number] [address] [place] [phone] Dec, Paranoid schizophrenia F20.0 ; Posttraumatic stress disorder F43.10 and Attention deficit hyperactivity disorder (ADHD), inattentive type, 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 [facility] [address] [id number] [address] [place] [phone] Nov, Schizoaffective disorder, un specified F25.9 [facility] [address] [id number] [address] [place] [phone] Oct, Paranoid schizophrenia F20.0 [facility] [address] [id number] [address] [place] [id number] Oct, [facility] [address] [id number] [address] [place] [id number] Sep, Paranoid schizophrenia F20.0 ; Posttraumatic stress disorder F43.10 and Attention deficit hyperactivity disorder (ADHD), inattentive type, 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 [facility] [address] [facility] [id number] [address] [place] [id number] Sep, [facility] [address] [facility] [id number] [address] [place] [id number] Sep, Paranoid schizophrenia F20.0 ; Posttraumatic stress disorder F43.10 and Attention deficit hyperactivity disorder (ADHD), inattentive type, 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 [facility] [address] [facility] [id number] [address] [place] [id number] Aug, Paranoid schizophrenia F20.0 [facility] [address] [facility] [id number] [address] [place] [phone] Aug, [facility] [address] [facility] [id number] [address] [place] [phone] Aug, Posttraumatic stress disorde r F43.10 ; Paranoid schizophrenia F20.0 and Attention deficit hyperactivity disorder (ADHD), inattentive type, 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 [facility] [address] [facility] [id number] [address] [place] [id number] Jul, Bipolar disorder, unspecifie d F31.9 [facility] [address] [facility] [id number] [address] [place] [id number] Jul, [facility] [address] [facility] [id number] [address] [place] [id number] Jun, [facility] [address] [place] [id number] [address] [place] [phone] Jun, Schizoaffective disorder, ch ronic 295.72 ; Posttraumatic stress disorder 309.81 and Attention deficit disorder of childhood without mention of hyperactivity 314.00 [facility] [address] [facility] [id number] [address] [place] [phone] May, [facility] [address] [facility] [id number] [address] [place] [phone] May, [facility] [address] [facility] [id number] [address] [place] [phone] May, Schizoaffective disorder, ch ronic 295.72 ; Posttraumatic stress disorder 309.81 ; Attention deficit disorder of childhood without mention of hyperactivity 314.00 and Bipolar disorder, unspecified 296.80 [facility] [address] [id number] [address] [place] [phone] Apr, Schizoaffective disorder, ch ronic 295.72 [facility] [address] [id number] [address] [place] [phone] Apr, [facility] [address] [id number] [address] [place] [id number] Apr, Schizoaffective disorder, ch ronic 295.72 ; Posttraumatic stress disorder 309.81 and Attention deficit disorder of childhood without mention of hyperactivity 314.00 [facility] [address] [id number] [address] [place] [phone] Mar, Disorganized schizophrenia, 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 [facility] [address] [id number] [address] [place] [phone] Mar, [facility] [address] [id number] [address] [place] [phone] Mar, [facility] [address] [id number] [address] [place] [phone] Mar, [facility] [address] [facility] [id number] [address] [place] [phone] Mar, [facility] [address] [id number] [address] [place] [phone] February, Schizoaffective disorder, ch ronic 295.72 [facility] [address] [id number] [address] [place] [phone] February, [facility] [address] [id number] [address] [place] [phone] February, Attention 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 ; Posttraumatic stress disorder 309.81 and Schizoaffective disorder, chronic 295.72 [facility] [address] [id number] [facility] [place] [id number] 29 Jan, 2015 [facility] [address] [id number] [address] [place] [address], [place] [id number] 14 Jan, 2015 [facility] [address] [id number] [address] [place] [address], [place] [id number] Jan, [facility] [address] [id number] [address] [place] [address], [place] [id number] Dec, [facility] [address] [id number] [address] [place] [address], [place] [id number] Dec, [facility] [address] [id number] [address] [place] [address], [place] [id number] Dec, [facility] [address] [id number] [address] [place] [address], [place] [id number] Dec, [facility] [address] [id number] [address] [place] [address], [place] [id number] Dec, [facility] [address] [id number] [address] [place] [address], [place] [id number] Dec, [facility] [address] [id number] [address] [place] [address], [place] [id number] Dec, [facility] [address] [id number] [address] [place] [address], [place] [id number] Dec, [facility] [address] [id number] [address] [place] [address], [place] [phone] Nov, [facility] [address] [id number] [address] [place] [address], [place] [id number] Nov, [facility] [address] [id number] [address] [place] [address], [place] [id number] Nov, [facility] [address] [id number] [address] [place] [address], [place] [phone] Nov, [facility] [address] [id number] [address] [place] [address], [place] [id number] Nov, [facility] [address] [id number] [address] [place] [address], [place] [id number] Nov, [facility] [address] [id number] [address] [place] [address], [place] [id number] Nov, [facility] [address] [id number] [address] [place] [address], [place] [id number] Nov, [facility] [address] [id number] [address] [place] [address], [place] [id number] Nov, [facility] [address] [id number] [address] [place] [address], [place] [id number] Nov, [facility] [address] [id number] [address] [place] [address], [place] [id number] Oct, [facility] [address] [id number] [address] [place] [address], [place] [id number] Oct, [facility] [address] [id number] [address] [place] [address], [place] [id number] Oct, [facility] [address] [id number] [address] [place] [address], [place] [id number] Oct, [facility] [address] [id number] [address] [place] [address], [place] [id number] Oct, [facility] [address] [id number] [address] [place] [address], [place] [id number] Oct, [facility] [address] [id number] [address] [place] [address], [place] [id number] Oct, [facility] [address] [id number] [address] [place] [address], [place] [id number] Sep, [facility] [address] [id number] [address] [place] [address], [place] [id number] Sep, [facility] [address] [id number] [address] [place] [address], [place] [id number] Sep, [facility] [address] [id number] [address] [place] [address], [place] [id number] 15 Sep, 2014 [facility] [address] [id number] [address] [place] [address], [place] [phone] Aug, [facility] [address] [id number] [address] [place] [address], [place] [id number] Aug, [facility] [address] [id number] [address] [place] [address], [place] [id number] Aug, [facility] [address] [id number] [address] [place] [address], [place] [id number] Aug, [facility] [address] [id number] [address] [place] [address], [place] [id number] Aug, [facility] [address] [id number] [address] [place] [address], [place] [phone] Aug, [facility] [address] [id number] [address] [place] [address], [place] [id number] Jul, [facility] [address] [id number] [address] [place] [address], [place] [id number] Jul, [facility] [address] [id number] [address] [place] [address], [place] [id number] Jul, [facility] [address] [id number] [address] [place] [address], [place] [id number] 24 Jul, 2014 [facility] [address] [id number] [address] [place] [address], [place] [id number] Jul, [facility] [address] [id number] [address] [place] [address], [place] [id number] 15 Jul, 2014 [facility] [address] [id number] [address] [place] [address], [place] [id number] 27 Jun, 2014 [facility] [address] [id number] [address] [place] [address], [place] [id number] 27 Jun, 2014 [facility] [address] [id number] [address] [place] [address], [place] [id number] 26 Jun, 2014 [facility] [address] [id number] [address] [place] [address], [place] [id number] 26 Jun, 2013 [facility] [address] [id number] [address] [place] [address], [place] [id number] Jun, 2013 [facility] [address] [id number] [address] [place] [address], [place] [id number] Jun, 2013 [facility] [address] [id number] [address] [place] [address], [place] [id number] 16 Jun, 2013 [facility] [address] [id number] [address] [place] [address], [place] [id number] 16 Jun, 2013 [facility] [address] [id number] [address] [place] [address], [place] [id number] Jun, 2013 [facility] [address] [id number] [address] [place] [address], [place] [id number] Jun, 2013 [facility] [address] [id number] [address] [place] [address], [place] [id number] Jun, 2013 [facility] [address] [id number] [address] [place] [address], [place] [id number] May, [facility] [address] [id number] [address] [place] [address], [place] [phone] May, [facility] [address] [id number] [address] [place] [address], [place] [id number] May, [facility] [address] [id number] [address] [place] [address], [place] [id number] May, [facility] [address] [id number] [address] [place] [address], [place] [id number] May, [facility] [address] [id number] [address] [place] [address], [place] [id number] May, [facility] [address] [id number] [address] [place] [address], [place] [id number] May, [facility] [address] [id number] [address] [place] [address], [place] [id number] May, [facility] [address] [id number] [address] [place] [address], [place] [id number] May, [facility] [address] [id number] [address] [place] [address], [place] [id number] May, [facility] [address] [id number] [address] [place] [address], [place] [id number] Apr, [facility] [address] [id number] [address] [place] [address], [place] [id number] Apr, [facility] [address] [id number] [address] [place] [address], [place] [id number] Apr, [facility] [address] [id number] [address] [place] [address], [place] [id number] Apr, [facility] [address] [id number] [address] [place] [address], [place] [id number] Apr, [facility] [address] [id number] [address] [place] [address], [place] [id number] Apr, [facility] [address] [id number] [address] [place] [address], [place] [id number] Apr, [facility] [address] [id number] [address] [place] [address], [place] [id number] Apr, [facility] [address] [id number] [address] [place] [address], [place] [id number] Apr, [facility] [address] [id number] [address] [place] [address], [place] [id number] Apr, [facility] [address] [id number] [address] [place] [address], [place] [id number] Mar, [facility] [address] [id number] [address] [place] [address], [place] [id number] Mar, [facility] [address] [id number] [address] [place] [address], [place] [id number] Mar, [facility] [address] [id number] [facility] [place] [id number] 24 Mar, 2014 [facility] [address] [id number] [facility] [place] [id number] 20 Mar, 2014 [facility] [address] [id number] [address] [place] [address], [place] [id number] 18 Mar, 2014 [facility] [address] [id number] [address] [place] [address], [place] [id number] 18 Mar, 2014 [facility] [address] [id number] [address] [place] [address], [place] [id number] 16 Mar, 2014 [facility] [address] [id number] [address] [place] [address], [place] [id number] 16 Mar, 2014 [facility] [address] [id number] [address] [place] [address], [place] [id number] 13 Mar, 2014 [facility] [address] [id number] [address] [place] [address], [place] [id number] 13 Mar, 2014 [facility] [address] [id number] [address] [place] [address], [place] [id number] 11 Mar, 2014 [facility] [address] [id number] [address] [place] [address], [place] [id number] Mar, [facility] [address] [id number] [address] [place] [address], [place] [id number] 10 Mar, 2014 [facility] [address] [id number] [address] [place] [address], [place] [id number] 09 Mar, 2014 [facility] [address] [id number] [address] [place] [address], [place] [id number] 09 Mar, 2014 [facility] [address] [id number] [address] [place] [address], [place] [id number] Mar, [facility] [address] [id number] [address] [place] [address], [place] [id number] 09 Mar, 2014 [facility] [address] [id number] [address] [place] [address], [place] [id number] Mar, [facility] [address] [id number] [facility] [place] [id number] Mar, [facility] [address] [id number] [address] [place] [address], [place] [id number] February, [facility] [address] [id number] [address] [place] [address], [place] [id number] February, [facility] [address] [id number] [address] [place] [address], [place] [id number] February, [facility] [address] [id number] [address] [place] [address], [place] [id number] February, [facility] [address] [id number] [address] [place] [address], [place] [id number] February, [facility] [address] [id number] [address] [place] [address], [place] [id number] February, [facility] [address] [id number] [address] [place] [address], [place] [id number] February, [facility] [address] [id number] [address] [place] [address], [place] [id number] February, [facility] [address] [id number] [address] [place] [address], [place] [id number] February, [facility] [address] [id number] [address] [place] [address], [place] [id number] February, [facility] [address] [id number] [address] [place] [address], [place] [id number] February, [facility] [address] [id number] [address] [place] [address], [place] [id number] February, [facility] [address] [id number] [address] [place] [address], [place] [id number] February, [facility] [address] [id number] [address] [place] [address], [place] [id number] February, [facility] [address] [id number] [address] [place] [address], [place] [id number] February, [facility] [address] [id number] [address] [place] [address], [place] [id number] February, [facility] [address] [id number] [address] [place] [address], [place] [id number] February, [facility] [address] [id number] [address] [place] [address], [place] [id number] February, [facility] [address] [id number] [address] [place] [address], [place] [id number] February, [facility] [address] [id number] [address] [place] [address], [place] [id number] February, [facility] [address] [id number] [address] [place] [address], [place] [id number] February, [facility] [address] [id number] [address] [place] [address], [place] [address] Jan, [facility] [address] [id number] [address] [place] [address], [place] [id number] Jan, [facility] [address] [id number] [address] [place] [address], [place] [id number] Jan, [facility] [address] [id number] [address] [place] [address], [place] [address] Jan, [facility] [address] [id number] [address] [place] [address], [place] [id number] Jan, [facility] [address] [id number] [address] [place] [address], [place] [id number] Jan, [facility] [address] [id number] [address] [place] [address], [place] [id number] Jan, [facility] [address] [id number] [address] [place] [address], [place] [id number] Jan, [facility] [address] [id number] [address] [place] [address], [place] [id number] Dec, [facility] [address] [id number] [facility] [place] [address] 20 Dec, 2013 [facility] [address] [id number] [address] [place] [address], [place] [id number] 20 Dec, 2013 [facility] [address] [id number] [facility] [place] [id number] 19 Dec, 2013 [facility] [address] [id number] [address] [place] [address], [place] [id number] 19 Dec, 2013 [facility] [address] [id number] [address] [place] [address], [place] [id number] 15 Dec, 2013 [facility] [address] [id number] [address] [place] [address], [place] [id number] 15 Dec, 2013 [facility] [address] [id number] [address] [place] [address], [place] [id number] 11 Dec, 2013 [facility] [address] [id number] [address] [place] [address], [place] [id number] 10 Dec, 2013 [facility] [address] [id number] [address] [place] [address], [place] [id number] 10 Dec, 2013 [facility] [address] [id number] [address] [place] [address], [place] [id number] 18 Nov, 2013 [facility] [address] [id number] [address] [place] [address], [place] [id number] 17 Nov, 2013 [facility] [address] [id number] [address] [place] [address], [place] [id number] 17 Nov, 2013 [facility] [address] [id number] [address] [place] [address], [place] [id number] 05 Nov, 2013 [facility] [address] [id number] [address] [place] [address], [place] [id number] 05 Nov, 2013 [facility] [address] [id number] [address] [place] [address], [place] [id number] Oct, [facility] [address] [id number] [address] [place] [id number] Oct, [facility] [address] [id number] [address] [place] [address], [place] [id number] Oct, [facility] [address] [id number] [address] [place] [address], [place] [id number] Sep, [facility] [address] [id number] [address] [place] [address], [place] [id number] Sep, [facility] [address] [id number] [address] [place] [address], [place] [id number] Sep, [facility] [address] [id number] [address] [place] [address], [place] [id number] Sep, [facility] [address] [id number] [address] [place] [address], [place] [id number] Aug, [facility] [address] [id number] [address] [place] [address], [place] [id number] Aug, [facility] [address] [id number] [address] [place] [address], [place] [id number] Jul, [facility] [address] [id number] [address] [place] [address], [place] [id number] Jul, [facility] [address] [id number] [address] [place] [address], [place] [id number] Jul, [facility] [address] [id number] [address] [place] [address], [place] [id number] Jul, [facility] [address] [id number] [address] [place] [id number] Jul, [facility] [address] [id number] [address] [place] [address], [place] [id number] Jun, [facility] [address] [id number] [address] [place] [address], [place] [id number] Jun, [facility] [address] [id number] [address] [place] [address], [place] [id number] 19 Jun, 2013 [facility] [address] [id number] [address] [place] [address], [place] [id number] 18 Jun, 2013 [facility] [address] [id number] [address] [place] [address], [place] [id number] 16 Jun, 2013 [facility] [address] [id number] [address] [place] [address], [place] [id number] 12 Jun, 2013 [facility] [address] [id number] [address] [place] [address], [place] [id number] 11 Jun, 2013 [facility] [address] [id number] [address] [place] [address], [place] [id number] 30 May, 2013 [facility] [address] [id number] [address] [place] [address], [place] [id number] May, [facility] [address] [id number] [address] [place] [address], [place] [id number] Apr, [facility] [address] [id number] [address] [place] [address], [place] [id number] Apr, [facility] [address] [id number] [address] [place] [address], [place] [id number] Apr, [facility] [address] [id number] [address] [place] [address], [place] [id number] Mar, [facility] [address] [id number] [address] [place] [address], [place] [id number] Mar, [facility] [address] [id number] [address] [place] [address], [place] [id number] February, [facility] [address] [id number] [address] [place] [address], [place] [id number] February, [facility] [address] [id number] [address] [place] [address], [place] [id number] February, [facility] [address] [id number] [address] [place] [address], [place] [id number] February, [facility] [address] [id number] [address] [place] [address], [place] [id number] 19 Jan, 2013 [facility] [address] [id number] [address] [place] [address], [place] [id number] 17 Jan, 2013 [facility] [address] [id number] [address] [place] [address], [place] [id number] 16 Jan, 2013 [facility] [address] [id number] [address] [place] [address], [place] [id number] 29 Dec, 2012 [facility] [address] [id number] [address] [place] [address], [place] [id number] Dec, [facility] [address] [id number] [address] [place] [address], [place] [id number] Dec, [facility] [address] [id number] [address] [place] [address], [place] [id number] 08 Dec, 2012 [facility] [address] [id number] [address] [place] [address], [place] [id number] Nov, [facility] [address] [id number] [address] [place] [address], [place] [id number] Nov, [facility] [address] [id number] [address] [place] [address], [place] [id number] Oct, [facility] [address] [id number] [address] [place] [address], [place] [id number] Oct, [facility] [address] [id number] [address] [place] [address], [place] [id number] Oct, [facility] [address] [id number] [address] [place] [address], [place] [id number] Oct, [facility] [address] [id number] [address] [place] [address], [place] [id number] Aug, [facility] [address] [id number] [address] [place] [address], [place] [id number] Aug, [facility] [address] [id number] [address] [place] [address], [place] [id number] 18 Jun, 2012 [facility] [address] [id number] [address] [place] [address], [place] [id number] May, [facility] [address] [id number] [address] [place] [address], [place] [id number] May, [facility] [address] [id number] [address] [place] [address], [place] [id number] Apr, [facility] [address] [id number] [address] [place] [address], [place] [id number] Apr, [facility] [address] [id number] [address] [place] [address], [place] [id number] Apr, [facility] [address] [id number] [address] [place] [address], [place] [id number] Mar, [facility] [address] [id number] [address] [place] [address], [place] [id number] Mar, [facility] [address] [id number] [address] [place] [address], [place] [id number] Mar, [facility] [address] [id number] [address] [place] [address], [place] [id number] Mar, [facility] [address] [id number] [address] [place] [address], [place] [id number] Mar, [facility] [address] [id number] [address] [place] [address], [place] [id number] February, [facility] [address] [id number] [address] [place] [address], [place] [id number] February, [facility] [address] [id number] [address] [place] [address], [place] [id number] February, [facility] [address] [id number] [address] [place] [address], [place] [id number] February, [facility] [address] [id number] [address] [place] [address], [place] [id number] February, [facility] [address] [id number] [address] [place] [address], [place] [id number] February, [facility] [address] [id number] [address] [place] [address], [place] [id number] February, [facility] [address] [id number] [address] [place] [address], [place] [id number] Jan, [facility] [address] [id number] [address] [place] [address], [place] [id number] Jan, [facility] [address] [id number] [address] [place] [address], [place] [id number] 17 Jan, 2012 [facility] [address] [id number] [address] [place] [address], [place] [id number] 13 Jan, 2012 [facility] [address] [id number] [address] [place] [address], [place] [id number] Jan, [facility] [address] [id number] [address] [place] [address], [place] [id number] Jan, [facility] [place] [address] [id number] [address] [place] [address], [place] [id number] 30 Dec, 2011 [facility] [place] [address] [id number] [address] [place] [address], [place] [id number] 24 Dec, 2011 [facility] [place] [address] [id number] [address] [place] [address], [place] [id number] Dec, [facility] [address] [id number] [address] [place] [address], [place] [id number] Dec, [facility] [address] [id number] [address] [place] [address], [place] [id number] Dec, [facility] [address] [id number] [address] [place] [address], [place] [id number] Nov, [facility] [address] [id number] [address] [place] [address], [place] [id number] Nov, [facility] [address] [id number] [address] [place] [address], [place] [id number] Nov, [facility] [address] [id number] [address] [place] [id number] 14 Nov, 2011 [facility] [place] [address] [id number] [address] [place] [address], [place] [id number] 10 Nov, 2011 [facility] [address] [id number] [address] [place] [address], [place] [id number] Nov, [facility] [place] [address] [id number] [address] [place] [address], [place] [id number] Oct, [facility] [address] [id number] [address] [place] [address], [place] [id number] Oct, [facility] [place] [address] [id number] [address] [place] [address], [place] [id number] Oct, [facility] [place] [address] [id number] [address] [place] [address], [place] [id number] Oct, [facility] [place] [address] [id number] [address] [place] [address], [place] [id number] Oct, [facility] [address] [id number] [address] [place] [address], [place] [id number] Sep, [facility] [place] [address] [id number] [address] [place] [address], [place] [id number] Sep, [facility] [address] [id number] [address] [place] [address], [place] [id number] Sep, [facility] [place] [address] [id number] [address] [place] [address], [place] [id number] 14 Sep, 2011 [facility] [address] [id number] [address] [place] [address], [place] [id number] 14 Sep, 2011 [facility] [address] [id number] [address] [place] [address], [place] [id number] 13 Sep, 2011 [facility] [address] [id number] [address] [place] [address], [place] [id number] 12 Sep, 2011 [facility] [address] [id number] [address] [place] [address], [place] [id number] 09 Sep, 2011 [facility] [address] [id number] [address] [place] [address], [place] [id number] Sep, [facility] [address] [id number] [address] [place] [address], [place] [id number] Aug, [facility] [address] [id number] [address] [place] [address], [place] [id number] Aug, [facility] [address] [id number] [address] [place] [address], [place] [id number] Aug, [facility] [address] [id number] [address] [place] [address], [place] [id number] Aug, [facility] [address] [id number] [address] [place] [address], [place] [id number] Aug, [facility] [address] [id number] [address] [place] [address], [place] [id number] Aug, [facility] [address] [id number] [address] [place] [address], [place] [id number] Aug, [facility] [address] [id number] [address] [place] [address], [place] [id number] Aug, [facility] [address] [id number] [address] [place] [address], [place] [id number] Aug, [facility] [address] [id number] [address] [place] [address], [place] [id number] Aug, [facility] [address] [id number] [address] [place] [address], [place] [id number] Aug, [facility] [address] [id number] [address] [place] [address], [place] [id number] Aug, [facility] [address] [id number] [address] [place] [address], [place] [id number] Jul, [facility] [address] [id number] [address] [place] [address], [place] [id number] Jul, [facility] [address] [id number] [address] [address] Jul, [facility] [address] [id number] [address] [place] [id number] Jul, [facility] [address] [id number] [address] [place] [id number] Jul, [facility] [address] [id number] [address] [place] [id number] Jul, [facility] [address] [id number] [address] [place] [id number] Jul, [facility] [address] [id number] [address] [place] [phone] Jul, [facility] [address] [id number] [address] [place] [id number] Jul, [facility] [address] [id number] [address] [place] [id number] Jul, [facility] [address] [id number] [address] [place] [phone] Nov, [facility] [address] [id number] [address] [place] [id number] Aug, [facility] [address] [id number] [address] [place] [id number] Aug, [facility] [address] [id number] [address] [place] [phone] Aug, [facility] [address] [id number] [address] [place] [id number] Aug, [facility] [address] [id number] [address] [place] [id number] Jul, IMMUNIZATIONS No Known Immunizations SOCIAL HISTORY Never Assessed REASON FOR VISIT PLAN OF CARE VITAL SIGNS Weight 189.25 lbs 2014-05-16 Temperature 98.8 degrees Fahrenheit 2014-05-16 Heart Rate 72 bpm 2014-05-16 Respiratory Rate 28 2014-05-16 Blood pressure systolic 96 mmHg 2014-05-16 Blood pressure diastolic 74 mmHg 2014-05-16 MEDICATIONS Unknown Medications RESULTS No Results PROCEDURES [...] [facility] 01/30/2018-02/10/20 08 Hospitalization History johnson- [email or web address]- cutting/SI 05/04/18-
--- OUTSIDE RECORDS SUMMARY | 2020-04-04 01:59 | XMS REPORT ---
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 Active 86355843 Problem Generalized anxiety disorder 300.02 A ctive 53290296 Problem Obsessive-compulsive disorders 300.3 Active 709408862 Problem Catatonic schizophrenia, 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 829788786 Problem Disorganized schizophrenia, 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 68907224 Problem Paranoid schizophrenia F20.0 Active 21851721 Problem Borderline personality disorder F60.3 Active 65547184 Problem Paranoid schizophrenia, unspecified condition 295.30 Active 12345843 Problem Schizoaffective disorder, depressive type F25.1 Active 58668091 Problem Bipolar disorder, unspecified 296.80 Active 41942227 Problem Schizoaffective disorder, unspecified F25.9 Active 56948731 Problem Attention deficit hyperactivity disorder (ADHD), inattentive type, 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 63666830 Problem Posttraumatic stress disorder F43.10 Active 06768288 Problem High risk medication use Z79.899 Activ e [id number] ALLERGIES No Information ENCOUNTERS Encounter Location Date Diagnosis [facility] [address] [facility] [id number] [address] [place] [phone] Jun, [facility] [address] [facility] [id number] [address] [place] [phone] Apr, Paranoid schizophrenia F20.0 ; Posttraumatic stress disorder F43.10 ; Attention deficit hyperactivity disorder (ADHD), inattentive type, 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 and Borderline personality disorder F60.3 [facility] [address] [facility] [id number] [address] [place] [phone] Apr, Paranoid schizophrenia F20.0 [facility] [address] [facility] [id number] [address] [place] [phone] Apr, Paranoid schizophrenia F20.0 ; Posttraumatic stress disorder F43.10 ; Attention deficit hyperactivity disorder (ADHD), inattentive type, 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 and Borderline personality disorder F60.3 [facility] [address] [facility] [id number] [address] [place] [phone] Mar, Paranoid schizophrenia F20.0 [facility] [address] [id number] [address] [place] [phone] Mar, Paranoid schizophrenia F20.0 ; Posttraumatic stress disorder F43.10 ; Attention deficit hyperactivity disorder (ADHD), inattentive type, 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 and Borderline personality disorder F60.3 [facility] [address] [facility] [id number] [address] [place] [phone] February, Paranoid schizophrenia F20.0 [facility] [address] [facility] [id number] [address] [place] [phone] Jan, Paranoid schizophrenia F20.0 ; Posttraumatic stress disorder F43.10 ; Attention deficit hyperactivity disorder (ADHD), inattentive type, 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 and Borderline personality disorder F60.3 [facility] [address] [facility] [id number] [address] [place] [phone] Dec, Paranoid schizophrenia F20.0 ; Posttraumatic stress disorder F43.10 ; Attention deficit hyperactivity disorder (ADHD), inattentive type, 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 and Borderline personality disorder F60.3 [facility] [address] [id number] [address] [place] [phone] Dec, Paranoid schizophrenia F20.0 ; Posttraumatic stress disorder F43.10 ; Attention deficit hyperactivity disorder (ADHD), inattentive type, 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 and Borderline personality disorder F60.3 [facility] [address] [facility] [id number] [address] [place] [phone] Oct, Paranoid schizophrenia F20.0 ; Posttraumatic stress disorder F43.10 ; Attention deficit hyperactivity disorder (ADHD), inattentive type, 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 and Borderline personality disorder F60.3 [facility] [address] [id number] [address] [place] [phone] Oct, Paranoid schizophrenia F20.0 ; Posttraumatic stress disorder F43.10 ; Attention deficit hyperactivity disorder (ADHD), inattentive type, 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 and Borderline personality disorder F60.3 [facility] [address] [id number] [address] [place] [phone] Aug, [facility] [address] [id number] [address] [place] [phone] Aug, Paranoid schizophrenia F20.0 ; Posttraumatic stress disorder F43.10 ; Attention deficit hyperactivity disorder (ADHD), inattentive type, 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 and Borderline personality disorder F60.3 [facility] [address] [id number] [address] [place] [phone] Jul, Dry skin dermatitis L85.3 [facility] [address] [id number] [address] [place] [phone] Jul, [facility] [address] [facility] [id number] [address] [place] [phone] Jul, Paranoid schizophrenia F20.0 [facility] [address] [id number] [address] [place] [phone] May, Paranoid schizophrenia F20.0 ; Posttraumatic stress disorder F43.10 ; Attention deficit hyperactivity disorder (ADHD), inattentive type, 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 and Borderline personality disorder F60.3 [facility] [address] [id number] [address] [place] [phone] May, [facility] [address] [id number] [address] [place] [phone] May, Paranoid schizophrenia F20.0 [facility] [address] [id number] [address] [place] [phone] May, Paranoid schizophrenia F20.0 ; Posttraumatic stress disorder F43.10 ; Attention deficit hyperactivity disorder (ADHD), inattentive type, 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 and Borderline personality disorder F60.3 [facility] [address] [id number] [address] [place] [phone] Apr, [facility] [address] [id number] [address] [place] [phone] Apr, Paranoid schizophrenia F20.0 ; Posttraumatic stress disorder F43.10 ; Attention deficit hyperactivity disorder (ADHD), inattentive type, 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 and Borderline personality disorder F60.3 [facility] [address] [id number] [address] [place] [phone] Apr, [facility] [address] [id number] [address] [place] [phone] Apr, Schizoaffective disorder, de pressive type F25.1 and Borderline personality disorder F60.3 [facility] [address] [id number] [address] [place] [phone] Apr, Paranoid schizophrenia F20.0 ; Posttraumatic stress disorder F43.10 ; Attention deficit hyperactivity disorder (ADHD), inattentive type, 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 and Borderline personality disorder F60.3 [facility] [address] [id number] [address] [place] [phone] Apr, [facility] [address] [id number] [address] [place] [phone] Apr, Paranoid schizophrenia F20.0 ; Posttraumatic stress disorder F43.10 ; Attention deficit hyperactivity disorder (ADHD), inattentive type, 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 and Borderline personality disorder F60.3 [facility] [address] [id number] [address] [place] [phone] Apr, [facility] [address] [id number] [address] [place] [phone] Mar, Paranoid schizophrenia F20.0 [facility] [address] [id number] [address] [place] [phone] Mar, [facility] [address] [id number] [address] [place] [phone] Mar, Paranoid schizophrenia F20.0 ; Posttraumatic stress disorder F43.10 ; Attention deficit hyperactivity disorder (ADHD), inattentive type, 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 and Borderline personality disorder F60.3 [facility] [address] [id number] [address] [place] [phone] February, Paranoid schizophrenia F20.0 [facility] [address] [id number] [address] [place] [phone] February, Paranoid schizophrenia F20.0 ; Posttraumatic stress disorder F43.10 ; Attention deficit hyperactivity disorder (ADHD), inattentive type, 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 and Borderline personality disorder F60.3 [facility] [address] [facility] [id number] [address] [place] [phone] February, Paranoid schizophrenia F20.0 ; Posttraumatic stress disorder F43.10 ; Attention deficit hyperactivity disorder (ADHD), inattentive type, 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 and Borderline personality disorder F60.3 [facility] [address] [id number] [address] [place] [phone] February, [facility] [address] [facility] [id number] [address] [place] [phone] February, Paranoid schizophrenia F20.0 [facility] [address] [facility] [id number] [address] [place] [phone] February, Paranoid schizophrenia F20.0 [facility] [address] [id number] [address] [place] [phone] February, Paranoid schizophrenia F20.0 ; Posttraumatic stress disorder F43.10 ; Attention deficit hyperactivity disorder (ADHD), inattentive type, 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 and Borderline personality disorder F60.3 [facility] [address] [id number] [address] [place] [phone] Jan, Paranoid schizophrenia F20.0 ; Posttraumatic stress disorder F43.10 ; Attention deficit hyperactivity disorder (ADHD), inattentive type, 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 and Borderline personality disorder F60.3 [facility] [address] [id number] [address] [place] [phone] Jan, Paranoid schizophrenia F20.0 [facility] [address] [id number] [address] [place] [phone] Jan, Paranoid schizophrenia F20.0 [facility] [address] [id number] [address] [place] [phone] Jan, Paranoid schizophrenia F20.0 ; Posttraumatic stress disorder F43.10 ; Attention deficit hyperactivity disorder (ADHD), inattentive type, 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 and Borderline personality disorder F60.3 [facility] [address] [id number] [address] [place] [phone] Dec, [facility] [address] [id number] [address] [place] [phone] Nov, Paranoid schizophrenia F20.0 ; Posttraumatic stress disorder F43.10 ; Attention deficit hyperactivity disorder (ADHD), inattentive type, 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 and Borderline personality disorder F60.3 [facility] [address] [id number] [address] [place] [phone] Nov, [facility] [address] [id number] [address] [place] [phone] Oct, Paranoid schizophrenia F20.0 [facility] [address] [id number] [address] [place] [phone] Oct, Paranoid schizophrenia F20.0 ; Posttraumatic stress disorder F43.10 ; Attention deficit hyperactivity disorder (ADHD), inattentive type, 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 ; Borderline personality disorder F60.3 and 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 [facility] [address] [id number] [address] [place] [phone] Oct, [facility] [address] [id number] [address] [place] [phone] Oct, [facility] [address] [id number] [address] [place] [phone] Sep, [facility] [address] [facility] [id number] [address] [place] [id number] Sep, Paranoid schizophrenia F20.0 ; Posttraumatic stress disorder F43.10 ; Attention deficit hyperactivity disorder (ADHD), inattentive type, 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 and Borderline personality disorder F60.3 [facility] [address] [id number] [address] [place] [phone] Sep, Paranoid schizophrenia F20.0 [facility] [address] [id number] [address] [place] [phone] Aug, Paranoid schizophrenia F20.0 ; Posttraumatic stress disorder F43.10 ; Attention deficit hyperactivity disorder (ADHD), inattentive type, 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 and Borderline personality disorder F60.3 [facility] [address] [facility] [id number] [address] [place] [phone] Aug, Paranoid schizophrenia F20.0 ; Posttraumatic stress disorder F43.10 ; Attention deficit hyperactivity disorder (ADHD), inattentive type, 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 and Borderline personality disorder F60.3 [facility] [address] [facility] [id number] [address] [place] [phone] Aug, [facility] [address] [id number] [address] [place] [phone] Jul, Paranoid schizophrenia F20.0 ; Posttraumatic stress disorder F43.10 ; Attention deficit hyperactivity disorder (ADHD), inattentive type, 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 and Borderline personality disorder F60.3 [facility] [address] [facility] [id number] [address] [place] [phone] Jul, Paranoid schizophrenia F20.0 [facility] [address] [facility] [id number] [address] [place] [phone] Jul, Paranoid schizophrenia F20.0 ; Posttraumatic stress disorder F43.10 ; Attention deficit hyperactivity disorder (ADHD), inattentive type, 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 and Borderline personality disorder F60.3 [facility] [address] [id number] [address] [place] [phone] Jun, Paranoid schizophrenia F20.0 ; Posttraumatic stress disorder F43.10 ; Attention deficit hyperactivity disorder (ADHD), inattentive type, 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 and Borderline personality disorder F60.3 [facility] [address] [id number] [address] [place] [phone] May, 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 Z79.899 [facility] [address] [id number] [address] [place] [phone] May, [facility] [address] [id number] [address] [place] [phone] May, [facility] [address] [id number] [address] [place] [phone] May, Attention deficit hyperactiv ity disorder (ADHD), inattentive type, mild F90.0 [facility] [address] [id number] [address] [place] [phone] May, [facility] [address] [id number] [address] [place] [phone] May, Attention deficit hyperactiv ity disorder (ADHD), inattentive type, mild F90.0 [facility] [address] [id number] [address] [place] [phone] May, Paranoid schizophrenia F20.0 ; Posttraumatic stress disorder F43.10 ; Attention deficit hyperactivity disorder (ADHD), inattentive type, 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 and 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 [facility] [address] [id number] [address] [place] [phone] Apr, Paranoid schizophrenia F20.0 [facility] [address] [id number] [address] [place] [phone] Apr, Paranoid schizophrenia F20.0 ; Posttraumatic stress disorder F43.10 and Attention deficit hyperactivity disorder (ADHD), inattentive type, 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 [facility] [address] [id number] [address] [place] [phone] February, [facility] [address] [id number] [address] [place] [phone] February, Paranoid schizophrenia F20.0 ; Posttraumatic stress disorder F43.10 and Attention deficit hyperactivity disorder (ADHD), inattentive type, 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 [facility] [address] [id number] [address] [place] [phone] February, Paranoid schizophrenia F20.0 ; Posttraumatic stress disorder F43.10 and Attention deficit hyperactivity disorder (ADHD), inattentive type, 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 [facility] [address] [id number] [address] [place] [phone] Jan, Paranoid schizophrenia F20.0 ; Posttraumatic stress disorder F43.10 and Attention deficit hyperactivity disorder (ADHD), inattentive type, 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 [facility] [address] [id number] [address] [place] [address] [id number] Dec, Dental examination Z01.20 [facility] [address] [id number] [address] [place] [address] [id number] Nov, Dental examination Z01.20 [facility] [address] [id number] [address] [place] [address] [id number] Nov, Dental examination Z01.20 [facility] [address] [id number] [address] [place] [address] [id number] Nov, Dental caries K02.9 [facility] [address] [id number] [address] [place] [phone] 13 Nov, 2016 High risk medication use Z79 .899 [facility] [address] [id number] [address] [place] [phone] Nov, Paranoid schizophrenia F20.0 ; Posttraumatic stress disorder F43.10 ; Attention deficit hyperactivity disorder (ADHD), inattentive type, 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 and Borderline personality disorder in adult F60.3 [facility] [address] [id number] [address] [place] [address] [id number] 18 Oct, 2016 Dental caries K02.9 [facility] [address] [id number] [address] [place] [phone] 05 Sep, 2016 Paranoid schizophrenia F20.0 ; Posttraumatic stress disorder F43.10 and Attention deficit hyperactivity disorder (ADHD), inattentive type, 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 [facility] [address] [id number] [address] [place] [phone] 16 Aug, 2016 Paranoid schizophrenia F20.0 ; Posttraumatic stress disorder F43.10 and Attention deficit hyperactivity disorder (ADHD), inattentive type, 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 [facility] [address] [id number] [address] [place] [phone] Aug, Strep throat J02.0 and Cough R05 [facility] [address] [id number] [address] [place] [phone] Aug, [facility] [address] [id number] [address] [place] [phone] 24 Jul, 2016 Paranoid schizophrenia F20.0 ; Posttraumatic stress disorder F43.10 and Attention deficit hyperactivity disorder (ADHD), inattentive type, 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 [facility] [address] [id number] [address] [place] [phone] Jul, [facility] [address] [id number] [address] [place] [phone] 28 Jun, 2016 Paranoid schizophrenia F20.0 ; Posttraumatic stress disorder F43.10 and Attention deficit hyperactivity disorder (ADHD), inattentive type, 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 [facility] [address] [id number] [address] [place] [id number] 22 Jun, 2016 Dental examination Z01.20 [facility] [address] [id number] [address] [place] [phone] 12 Jun, 2016 [facility] [address] [id number] [address] [place] [id number] May, Paranoid schizophrenia F20.0 [facility] [address] [id number] [address] [place] [phone] May, Paranoid schizophrenia F20.0 ; Posttraumatic stress disorder F43.10 and Attention deficit hyperactivity disorder (ADHD), inattentive type, 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 [facility] [address] [id number] [address] [place] [phone] May, [facility] [address] [id number] [address] [place] [phone] May, Paranoid schizophrenia F20.0 [facility] [address] [id number] [address] [place] [phone] May, [facility] [address] [id number] [address] [place] [phone] May, Paranoid schizophrenia F20.0 [facility] [address] [id number] [address] [place] [phone] May, Schizoaffective disorder, un specified F25.9 [facility] [address] [id number] [address] [place] [phone] May, Schizoaffective disorder, un specified F25.9 [facility] [address] [id number] [address] [place] [phone] May, [facility] [address] [id number] [address] [place] [phone] May, Paranoid schizophrenia F20.0 [facility] [address] [id number] [address] [place] [phone] May, Paranoid schizophrenia F20.0 ; Posttraumatic stress disorder F43.10 and Attention deficit hyperactivity disorder (ADHD), inattentive type, 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 [facility] [address] [id number] [address] [place] [phone] Mar, [facility] [address] [id number] [address] [place] [phone] Mar, Paranoid schizophrenia F20.0 ; Posttraumatic stress disorder F43.10 and Attention deficit hyperactivity disorder (ADHD), inattentive type, 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 [facility] [address] [id number] [address] [place] [phone] Mar, Paranoid schizophrenia F20.0 [facility] [address] [id number] [address] [place] [phone] Mar, Paranoid schizophrenia F20.0 ; Attention deficit hyperactivity disorder (ADHD), inattentive type, 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 and Posttraumatic stress disorder F43.10 [facility] [address] [id number] [address] [place] [phone] Mar, [facility] [address] [id number] [address] [place] [phone] Mar, Paranoid schizophrenia F20.0 ; Posttraumatic stress disorder F43.10 and Attention deficit hyperactivity disorder (ADHD), inattentive type, 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 [facility] [address] [id number] [address] [place] [phone] February, [facility] [address] [id number] [address] [place] [phone] February, [facility] [address] [id number] [address] [place] [phone] February, [facility] [address] [id number] [address] [place] [phone] February, [facility] [address] [id number] [address] [place] [phone] Jan, Paranoid schizophrenia F20.0 [facility] [address] [id number] [address] [place] [address] [id number] Jan, Dental examination Z01.20 [facility] [address] [id number] [address] [place] [address] [id number] Jan, Dental caries K02.9 [facility] [address] [id number] [place] [id number] Jan, Dental examination Z01.20 [facility] [address] [id number] [place] [id number] Dec, Encounter for dental examina tion Z01.20 [facility] [address] [id number] [address] [place] [phone] Dec, Paranoid schizophrenia F20.0 [facility] [address] [id number] [address] [place] [address] [id number] Dec, Dental examination Z01.20 [facility] [address] [id number] [address] [place] [phone] Dec, [facility] [address] [id number] [address] [place] [id number] Dec, Paranoid schizophrenia F20.0 ; Posttraumatic stress disorder F43.10 and Attention deficit hyperactivity disorder (ADHD), inattentive type, 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 [facility] [address] [id number] [address] [place] [id number] Nov, Schizoaffective disorder, un specified F25.9 [facility] [address] [id number] [address] [place] [address] [address] Oct, Paranoid schizophrenia F20.0 [facility] [address] [id number] [address] [place] [address] Oct, [facility] [address] [id number] [address] [place] [address] Sep, Paranoid schizophrenia F20.0 ; Posttraumatic stress disorder F43.10 and Attention deficit hyperactivity disorder (ADHD), inattentive type, 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 [facility] [address] [id number] [address] [place] [address] Sep, [facility] [address] [id number] [address] [place] [address] Sep, Paranoid schizophrenia F20.0 ; Posttraumatic stress disorder F43.10 and Attention deficit hyperactivity disorder (ADHD), inattentive type, 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 [facility] [address] [id number] [address] [place] [address] Aug, Paranoid schizophrenia F20.0 [facility] [address] [id number] [address] [place] [address] Aug, [facility] [address] [facility] [id number] [address] [place] [address] Aug, Posttraumatic stress disorde r F43.10 ; Paranoid schizophrenia F20.0 and Attention deficit hyperactivity disorder (ADHD), inattentive type, 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 [facility] [address] [facility] [id number] [address] [place] [address] Jul, Bipolar disorder, unspecifie d F31.9 [facility] [address] [facility] [id number] [address] [place] [address] Jul, [facility] [address] [facility] [id number] [address] [place] [address] Jun, [facility] [address] [facility] [id number] [address] [place] [address] Jun, Schizoaffective disorder, ch ronic 295.72 ; Posttraumatic stress disorder 309.81 and Attention deficit disorder of childhood without mention of hyperactivity 314.00 [facility] [address] [facility] [id number] [address] [place] [address] May, [facility] [address] [id number] [address] [place] [address] May, [facility] [address] [facility] [id number] [address] [place] [address] May, Schizoaffective disorder, ch ronic 295.72 ; Posttraumatic stress disorder 309.81 ; Attention deficit disorder of childhood without mention of hyperactivity 314.00 and Bipolar disorder, unspecified 296.80 [facility] [address] [id number] [address] [place] [address] Apr, Schizoaffective disorder, ch ronic 295.72 [facility] [address] [id number] [address] [place] [address] Apr, [facility] [address] [id number] [address] [place] [address] Apr, Schizoaffective disorder, ch ronic 295.72 ; Posttraumatic stress disorder 309.81 and Attention deficit disorder of childhood without mention of hyperactivity 314.00 [facility] [address] [id number] [address] [place] [address] Mar, Disorganized schizophrenia, 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 [facility] [address] [id number] [address] [place] [address] Mar, [facility] [address] [id number] [address] [place] [address] Mar, [facility] [address] [facility] [id number] [address] [place] [address] Mar, [facility] [address] [id number] [address] [place] [address] Mar, [facility] [address] [facility] [id number] [address] [place] [address] February, Schizoaffective disorder, ch ronic 295.72 [facility] [address] [facility] [id number] [address] [place] [address] February, [facility] [address] [id number] [address] [place] [address] February, Attention 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 ; Posttraumatic stress disorder 309.81 and Schizoaffective disorder, chronic 295.72 [facility] [address] [id number] [address] [place] [address] Jan, [facility] [address] [id number] [address] [place] [address] Jan, [facility] [address] [id number] [address] [place] [address], [place] [address] Jan, [facility] [address] [id number] [address] [place] [address], [place] [address] Dec, [facility] [address] [id number] [address] [place] [address], [place] [address] Dec, [facility] [address] [id number] [address] [place] [address], [place] [address] Dec, [facility] [address] [id number] [address] [place] [address], [place] [address] Dec, [facility] [address] [id number] [address] [place] [address], [place] [address] Dec, [facility] [address] [id number] [address] [place] [address], [place] [address] Dec, [facility] [address] [id number] [address] [place] [address], [place] [address] Dec, [facility] [address] [id number] [address] [place] [address], [place] [address] Dec, [facility] [address] [id number] [address] [place] [address], [place] [address] Nov, [facility] [address] [id number] [address] [place] [address], [place] [address] Nov, [facility] [address] [id number] [address] [place] [address], [place] [address] Nov, [facility] [address] [id number] [address] [place] [address], [place] [address] Nov, [facility] [address] [id number] [address] [place] [address], [place] [address] Nov, [facility] [address] [id number] [address] [place] [address], [place] [address] Nov, 2014 [facility] [address] [id number] [address] [place] [address], [place] [address] Nov, [facility] [address] [id number] [address] [place] [address], [place] [address] Nov, [facility] [address] [id number] [address] [place] [address], [place] [address] Nov, [facility] [address] [id number] [address] [place] [address], [place] [address] Nov, [facility] [address] [id number] [address] [place] [address], [place] [address] Oct, [facility] [address] [id number] [address] [place] [address], [place] [address] Oct, [facility] [address] [id number] [address] [place] [address], [place] [address] Oct, [facility] [address] [id number] [address] [place] [address], [place] [address] Oct, [facility] [address] [id number] [address] [place] [address], [place] [address] Oct, [facility] [address] [id number] [address] [place] [address], [place] [address] Oct, [facility] [address] [id number] [address] [place] [address], [place] [address] Oct, [facility] [address] [id number] [address] [place] [address], [place] [address] Sep, [facility] [address] [id number] [address] [place] [address], [place] [address] Sep, [facility] [address] [id number] [address] [place] [address], [place] [address] Sep, [facility] [address] [id number] [address] [place] [address], [place] [address] Sep, [facility] [address] [id number] [address] [place] [address], [place] [address] Aug, [facility] [address] [id number] [address] [place] [address], [place] [address] Aug, [facility] [address] [id number] [address] [place] [address], [place] [address] Aug, [facility] [address] [id number] [address] [place] [address], [place] [address] Aug, [facility] [address] [id number] [address] [place] [address], [place] [address] Aug, [facility] [address] [id number] [address] [place] [address], [place] [address] Aug, [facility] [address] [id number] [address] [place] [address], [place] [address] Jul, [facility] [address] [id number] [address] [place] [address], [place] [address] Jul, [facility] [address] [id number] [address] [place] [address], [place] [address] Jul, [facility] [address] [id number] [address] [place] [address], [place] [address] Jul, [facility] [address] [id number] [address] [place] [address], [place] [address] Jul, [facility] [address] [id number] [address] [place] [address], [place] [address] Jul, [facility] [address] [id number] [address] [place] [address], [place] [address] 27 Jun, 2014 [facility] [address] [id number] [address] [place] [address], [place] [address] 27 Jun, 2014 [facility] [address] [id number] [address] [place] [address], [place] [address] 26 Jun, 2014 [facility] [address] [id number] [address] [place] [address], [place] [address] 26 Jun, 2014 [facility] [address] [id number] [address] [place] [address], [place] [address] Jun, [facility] [address] [id number] [address] [place] [address], [place] [address] Jun, 2013 [facility] [address] [id number] [address] [place] [address], [place] [address] Jun, [facility] [address] [id number] [address] [place] [address], [place] [address] Jun, 2013 [facility] [address] [id number] [address] [place] [address], [place] [address] Jun, 2013 [facility] [address] [id number] [address] [place] [address], [place] [address] Jun, [facility] [address] [id number] [address] [place] [address], [place] [address] Jun, [facility] [address] [id number] [address] [place] [address], [place] [address] May, [facility] [address] [id number] [address] [place] [address], [place] [address] May, [facility] [address] [id number] [address] [place] [address], [place] [address] May, [facility] [address] [id number] [address] [place] [address], [place] [address] May, [facility] [address] [id number] [address] [place] [address], [place] [address] May, [facility] [address] [id number] [address] [place] [address], [place] [address] May, [facility] [address] [id number] [address] [place] [address], [place] [address] May, [facility] [address] [id number] [address] [place] [address], [place] [address] May, [facility] [address] [id number] [address] [place] [address], [place] [address] May, [facility] [address] [id number] [address] [address] May, [facility] [address] [id number] [address] [address] Apr, [facility] [address] [id number] [address] [address] Apr, [facility] [address] [id number] [address] [place] [address], [place] [address] Apr, [facility] [address] [id number] [address] [place] [address], [place] [address] Apr, [facility] [address] [id number] [address] [place] [address], [place] [address] Apr, [facility] [address] [id number] [address] [place] [address], [place] [address] Apr, [facility] [address] [id number] [address] [place] [address], [place] [address] Apr, [facility] [address] [id number] [address] [place] [address], [place] [address] Apr, [facility] [address] [id number] [address] [place] [address], [place] [address] Apr, [facility] [address] [id number] [address] [place] [address], [place] [address] Apr, [facility] [address] [id number] [address] [place] [address], [place] [address] Mar, [facility] [address] [id number] [address] [place] [address], [place] [address] Mar, [facility] [address] [id number] [address] [place] [address], [place] [address] Mar, [facility] [address] [id number] [address] [place] [address], [place] [address] Mar, [facility] [address] [id number] [address] [place] [address], [place] [address] Mar, [facility] [address] [id number] [address] [place] [address], [place] [address] 18 Mar, 2014 [facility] [address] [id number] [address] [place] [address], [place] [address] 18 Mar, 2014 [facility] [address] [id number] [address] [place] [address], [place] [address] 16 Mar, 2014 [facility] [address] [id number] [address] [place] [address], [place] [address] 16 Mar, 2014 [facility] [address] [id number] [address] [place] [address], [place] [address] Mar, [facility] [address] [id number] [address] [place] [address], [place] [address] Mar, [facility] [address] [id number] [address] [place] [address], [place] [address] Mar, [facility] [address] [id number] [address] [place] [address], [place] [address] Mar, [facility] [address] [id number] [address] [place] [address], [place] [address] Mar, [facility] [address] [id number] [address] [place] [address], [place] [address] Mar, [facility] [address] [id number] [address] [place] [address], [place] [address] Mar, [facility] [address] [id number] [address] [place] [address] Mar, [facility] [address] [id number] [address] [place] [address], [place] [address] Mar, [facility] [address] [id number] [address] [place] [address], [place] [address] 04 Mar, 2014 [facility] [address] [id number] [address] [place] [address], [place] [address] 04 Mar, 2014 [facility] [address] [id number] [address] [place] [address], [place] [address] February, [facility] [address] [id number] [address] [place] [address], [place] [address] February, [facility] [address] [id number] [address] [place] [address], [place] [address] February, [facility] [address] [id number] [address] [place] [address], [place] [address] February, [facility] [address] [id number] [address] [place] [address], [place] [address] February, [facility] [address] [id number] [address] [place] [address], [place] [address] February, [facility] [address] [id number] [address] [place] [address], [place] [address] February, [facility] [address] [id number] [address] [place] [address], [place] [address] February, [facility] [address] [id number] [address] [place] [address], [place] [address] February, [facility] [address] [id number] [address] [place] [address], [place] [address] February, [facility] [address] [id number] [address] [place] [address], [place] [address] February, [facility] [address] [id number] [address] [place] [address], [place] [address] February, [facility] [address] [id number] [address] [place] [address], [place] [address] February, [facility] [address] [id number] [address] [place] [address], [place] [address] February, [facility] [address] [id number] [address] [place] [address], [place] [address] February, [facility] [address] [id number] [address] [place] [address], [place] [address] February, [facility] [address] [id number] [address] [place] [address], [place] [address] February, [facility] [address] [id number] [address] [place] [address], [place] [address] February, [facility] [address] [id number] [address] [place] [address], [place] [address] February, [facility] [address] [id number] [address] [place] [address], [place] [address] February, [facility] [address] [id number] [address] [place] [address], [place] [address] February, [facility] [address] [id number] [address] [place] [address], [place] [address] Jan, [facility] [address] [id number] [address] [place] [address], [place] [address] Jan, [facility] [address] [id number] [address] [place] [address], [place] [address] Jan, [facility] [address] [id number] [address] [place] [address], [place] [address] Jan, [facility] [address] [id number] [address] [place] [address], [place] [address] Jan, [facility] [address] [id number] [address] [place] [address], [place] [address] Jan, [facility] [address] [id number] [address] [place] [address], [place] [address] Jan, [facility] [address] [id number] [address] [place] [address], [place] [address] Jan, [facility] [address] [id number] [address] [place] [address], [place] [address] Dec, [facility] [address] [id number] [address] [place] [address], [place] [address] Dec, [facility] [address] [id number] [address] [place] [address], [place] [address] 20 Dec, 2013 [facility] [address] [id number] [address] [address] 19 Dec, 2013 [facility] [address] [id number] [address] [place] [address], [place] [address] 19 Dec, 2013 [facility] [address] [id number] [address] [place] [address], [place] [address] 15 Dec, 2013 [facility] [address] [id number] [address] [place] [address], [place] [address] 15 Dec, 2013 [facility] [address] [id number] [address] [place] [address], [place] [address] 11 Dec, 2013 [facility] [address] [id number] [address] [place] [address], [place] [address] 10 Dec, 2013 [facility] [address] [id number] [address] [place] [address], [place] [address] 10 Dec, 2013 [facility] [address] [id number] [address] [place] [address], [place] [address] 18 Nov, 2013 [facility] [address] [id number] [address] [place] [address], [place] [address] 17 Nov, 2013 [facility] [address] [id number] [address] [place] [address], [place] [address] 17 Nov, 2013 [facility] [address] [id number] [address] [place] [address], [place] [address] 05 Nov, 2013 [facility] [address] [id number] [address] [place] [address], [place] [address] Nov, [facility] [address] [id number] [address] [place] [address], [place] [address] Oct, [facility] [address] [id number] [address] [place] [address], [place] [address] Oct, [facility] [address] [id number] [address] [place] [address], [place] [address] 16 Oct, 2013 [facility] [address] [id number] [address] [place] [address], [place] [address] Sep, [facility] [address] [id number] [address] [place] [address], [place] [address] Sep, [facility] [address] [id number] [address] [place] [address], [place] [address] Sep, [facility] [address] [id number] [address] [place] [address], [place] [address] Sep, [facility] [address] [id number] [address] [place] [address], [place] [address] Aug, [facility] [address] [id number] [address] [place] [address], [place] [address] Aug, [facility] [address] [id number] [address] [place] [address], [place] [address] Jul, [facility] [address] [id number] [address] [place] [address], [place] [address] Jul, [facility] [address] [id number] [address] [place] [address], [place] [address] Jul, [facility] [address] [id number] [address] [place] [address], [place] [address] Jul, [facility] [address] [id number] [address] [place] [address], [place] [address] Jul, [facility] [address] [id number] [address] [place] [address], [place] [address] 25 Jun, 2012 [facility] [address] [id number] [address] [place] [address], [place] [address] 25 Sep, 2012 [facility] [address] [id number] [address] [place] [address], [place] [address] 19 Sep, 2012 [facility] [address] [id number] [address] [place] [address], [place] [address] 18 Sep, 2012 [facility] [address] [id number] [address] [place] [address], [place] [address] 16 Jun, 2013 [facility] [address] [id number] [address] [place] [address], [place] [address] 12 Jun, 2013 [facility] [address] [id number] [address] [place] [address], [place] [address] Jun, [facility] [address] [id number] [address] [place] [address], [place] [address] May, [facility] [address] [id number] [address] [place] [address], [place] [address] May, [facility] [address] [id number] [address] [place] [address], [place] [address] Apr, [facility] [address] [id number] [address] [place] [address], [place] [address] Apr, [facility] [address] [id number] [address] [place] [address], [place] [address] Apr, [facility] [address] [id number] [address] [place] [address], [place] [address] Mar, [facility] [address] [id number] [address] [place] [address], [place] [address] Mar, [facility] [address] [id number] [address] [place] [address], [place] [address] February, [facility] [address] [id number] [address] [place] [address], [place] [address] February, [facility] [address] [id number] [address] [place] [address], [place] [address] February, [facility] [address] [id number] [address] [place] [address], [place] [address] February, [facility] [address] [id number] [address] [place] [address], [place] [address] Jan, [facility] [address] [id number] [address] [place] [address], [place] [address] Jan, [facility] [address] [id number] [address] [place] [address] 16 Jan, 2013 [facility] [address] [id number] [address] [place] [address], [place] [address] 29 Dec, 2012 [facility] [address] [id number] [address] [place] [address], [place] [address] Dec, [facility] [address] [id number] [address] [place] [address], [place] [address] Dec, [facility] [address] [id number] [address] [place] [address], [place] [address] 08 Dec, 2012 [facility] [address] [id number] [address] [place] [address], [place] [address] Nov, [facility] [address] [id number] [address] [place] [address], [place] [address] Nov, [facility] [address] [id number] [address] [place] [address], [place] [address] Oct, [facility] [address] [id number] [address] [place] [address], [place] [address] Oct, [facility] [address] [id number] [address] [place] [address], [place] [address] Oct, [facility] [address] [id number] [address] [place] [address], [place] [address] Oct, [facility] [address] [id number] [address] [place] [address], [place] [address] Aug, [facility] [address] [id number] [address] [place] [address], [place] [address] Aug, [facility] [address] [id number] [address] [place] [address], [place] [address] Jun, [facility] [address] [id number] [address] [place] [address], [place] [address] May, [facility] [address] [id number] [address] [place] [address], [place] [address] May, [facility] [address] [id number] [address] [place] [address], [place] [address] Apr, [facility] [address] [id number] [address] [place] [address], [place] [address] Apr, [facility] [address] [id number] [address] [place] [address], [place] [address] Apr, [facility] [address] [id number] [address] [place] [address], [place] [address] Mar, [facility] [address] [id number] [address] [place] [address], [place] [address] Mar, [facility] [address] [id number] [address] [place] [address], [place] [address] Mar, [facility] [address] [id number] [address] [place] [address], [place] [address] Mar, [facility] [address] [id number] [address] [place] [address], [place] [address] Mar, [facility] [address] [id number] [address] [place] [address], [place] [address] February, [facility] [address] [id number] [address] [place] [address], [place] [address] February, [facility] [address] [id number] [address] [place] [address], [place] [address] February, [facility] [address] [id number] [address] [place] [address], [place] [address] February, [facility] [address] [id number] [address] [place] [address], [place] [address] February, [facility] [address] [id number] [address] [place] [address], [place] [address] February, [facility] [address] [id number] [address] [place] [address], [place] [address] February, [facility] [address] [id number] [address] [place] [address], [place] [address] 25 Jan, 2012 [facility] [address] [id number] [address] [place] [address], [place] [address] 18 Jan, 2012 [facility] [address] [id number] [address] [place] [address], [place] [address] 17 Jan, 2012 [facility] [address] [id number] [address] [place] [address], [place] [address] 13 Jan, 2012 [facility] [address] [id number] [address] [place] [address], [place] [address] 10 Jan, 2012 [facility] [address] [id number] [address] [place] [address], [place] [address] 04 Jan, 2012 [facility] [address] [id number] [address] [place] [address], [place] [address] 30 Dec, 2011 [facility] [address] [id number] [address] [place] [address], [place] [address] 24 Dec, 2011 [facility] [address] [id number] [address] [place] [address], [place] [address] 20 Dec, 2011 [facility] [address] [id number] [address] [place] [address], [place] [address] 13 Dec, 2011 [facility] [address] [id number] [address] [place] [address], [place] [address] 06 Dec, 2011 [facility] [address] [id number] [address] [place] [address], [place] [address] 28 Nov, 2011 [facility] [address] [id number] [address] [place] [address], [place] [address] 27 Nov, 2011 [facility] [address] [id number] [address] [place] [address], [place] [address] 25 Nov, 2011 [facility] [address] [id number] [address] [place] [address], [place] [address] 14 Nov, 2011 [facility] [address] [id number] [address] [place] [address], [place] [address] 10 Nov, 2011 [facility] [address] [id number] [address] [place] [address], [place] [address] Nov, [facility] [address] [id number] [address] [place] [address], [place] [address] Oct, [facility] [address] [id number] [address] [place] [address], [place] [address] Oct, [facility] [address] [id number] [address] [place] [address], [place] [address] Oct, [facility] [address] [id number] [address] [place] [address], [place] [address] Oct, [facility] [address] [id number] [address] [place] [address], [place] [address] Oct, [facility] [address] [id number] [address] [place] [address], [place] [address] Sep, [facility] [address] [id number] [address] [place] [address], [place] [address] Sep, [facility] [address] [id number] [address] [place] [address], [place] [address] Sep, [facility] [address] [id number] [address] [place] [address], [place] [address] 14 Sep, 2011 [facility] [address] [id number] [address] [place] [address], [place] [address] 14 Sep, 2011 [facility] [address] [id number] [address] [place] [address], [place] [address] 13 Sep, 2011 [facility] [address] [id number] [address] [place] [address], [place] [address] 12 Sep, 2011 [facility] [address] [id number] [address] [place] [address], [place] [address] 09 Sep, 2011 [facility] [address] [id number] [address] [place] [address], [place] [address] 05 Sep, 2011 [facility] [address] [id number] [address] [place] [address] [address] Aug, [facility] [address] [id number] [address] [place] [address], [place] [address] Aug, [facility] [address] [id number] [address] [place] [address], [place] [address] Aug, [facility] [address] [id number] [address] [place] [address], [place] [address] Aug, [facility] [address] [id number] [address] [place] [address], [place] [address] Aug, [facility] [address] [id number] [address] [place] [address], [place] [address] Aug, [facility] [address] [id number] [address] [place] [address], [place] [address] Aug, [facility] [address] [id number] [address] [place] [address], [place] [address] Aug, [facility] [address] [id number] [address] [place] [address], [place] [address] Aug, [facility] [address] [id number] [address] [place] [address], [place] [address] Aug, [facility] [address] [id number] [address] [place] [address], [place] [address] Aug, [facility] [address] [id number] [address] [place] [address] Aug, [facility] [address] [id number] [address] [place] [address] Jul, [facility] [address] [id number] [address] [place] [address], [place] [address] Jul, [facility] [address] [id number] [address] [place] [address] Jul, [facility] [address] [id number] [address] [place] [address] Jul, [facility] [address] [id number] [address] [place] [address] Jul, [facility] [address] [id number] [address] [place] [address] Jul, [facility] [address] [id number] [address] [place] [address] Jul, [facility] [address] [id number] [address] [place] [address] Jul, [facility] [address] [id number] [address] [place] [address] Jul, [facility] [address] [id number] [address] [place] [address] Jul, [facility] [address] [id number] [address] [place] [address] Nov, [facility] [address] [id number] [address] [place] [address] Aug, [facility] [address] [id number] [address] [place] [address] Aug, [facility] [address] [id number] [address] [place] [address] Aug, [facility] [address] [id number] [address] [place] [address] Aug, [facility] [address] [id number] [address] [place] [address] Jul, IMMUNIZATIONS No Known Immunizations SOCIAL HISTORY [...] Suicide attempt by hanging 2015 Hospitalization History [facility] 01/30/2018-02/10/20 08 Hospitalization History [facility] 05/04/18-
--- OUTSIDE RECORDS SUMMARY | 2020-04-04 01:59 | XMS REPORT ---
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 Active 64935434 Problem Generalized anxiety disorder 300.02 A ctive 58523512 Problem Obsessive-compulsive disorders 300.3 Active 225625989 Problem Catatonic schizophrenia, 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 657244556 Problem Disorganized schizophrenia, 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 38574966 Problem Paranoid schizophrenia F20.0 Active 71568431 Problem Borderline personality disorder F60.3 Active 06970853 Problem Paranoid schizophrenia, unspecified condition 295.30 Active 37295172 Problem Schizoaffective disorder, depressive type F25.1 Active 12565566 Problem Bipolar disorder, unspecified 296.80 Active 77910452 Problem Schizoaffective disorder, unspecified F25.9 Active 95539898 Problem Attention deficit hyperactivity disorder (ADHD), inattentive type, 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 94770879 Problem Posttraumatic stress disorder F43.10 Active 43792537 Problem High risk medication use Z79.899 Activ e [id number] ALLERGIES No Information ENCOUNTERS Encounter Location Date Diagnosis [facility] [address] [facility] [id number] [address] [place] [phone] Jun, [facility] [address] [facility] [id number] [address] [place] [address] Apr, Paranoid schizophrenia F20.0 ; Posttraumatic stress disorder F43.10 ; Attention deficit hyperactivity disorder (ADHD), inattentive type, 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 and Borderline personality disorder F60.3 [facility] [address] [facility] [id number] [address] [place] [address] Apr, Paranoid schizophrenia F20.0 [facility] [address] [id number] [place] [address] Apr, Paranoid schizophrenia F20.0 ; Posttraumatic stress disorder F43.10 ; Attention deficit hyperactivity disorder (ADHD), inattentive type, 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 and Borderline personality disorder F60.3 [facility] [address] [id number] [address] [place] [phone] Mar, Paranoid schizophrenia F20.0 [facility] [address] [id number] [address] [place] [address] Mar, Paranoid schizophrenia F20.0 ; Posttraumatic stress disorder F43.10 ; Attention deficit hyperactivity disorder (ADHD), inattentive type, 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 and Borderline personality disorder F60.3 [facility] [address] [id number] [address] [place] [phone] February, Paranoid schizophrenia F20.0 [facility] [address] [id number] [address] [place] [address] Jan, Paranoid schizophrenia F20.0 ; Posttraumatic stress disorder F43.10 ; Attention deficit hyperactivity disorder (ADHD), inattentive type, 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 and Borderline personality disorder F60.3 [facility] [address] [id number] [address] [place] [address] Dec, Paranoid schizophrenia F20.0 ; Posttraumatic stress disorder F43.10 ; Attention deficit hyperactivity disorder (ADHD), inattentive type, 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 and Borderline personality disorder F60.3 [facility] [address] [id number] [address] [place] [address] Dec, Paranoid schizophrenia F20.0 ; Posttraumatic stress disorder F43.10 ; Attention deficit hyperactivity disorder (ADHD), inattentive type, 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 and Borderline personality disorder F60.3 [facility] [address] [id number] [address] [place] [address] Oct, Paranoid schizophrenia F20.0 ; Posttraumatic stress disorder F43.10 ; Attention deficit hyperactivity disorder (ADHD), inattentive type, 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 and Borderline personality disorder F60.3 [facility] [address] [id number] [address] [place] [address] Oct, Paranoid schizophrenia F20.0 ; Posttraumatic stress disorder F43.10 ; Attention deficit hyperactivity disorder (ADHD), inattentive type, 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 and Borderline personality disorder F60.3 [facility] [address] [id number] [address] [place] [phone] Aug, [facility] [address] [id number] [address] [place] [address] Aug, Paranoid schizophrenia F20.0 ; Posttraumatic stress disorder F43.10 ; Attention deficit hyperactivity disorder (ADHD), inattentive type, 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 and Borderline personality disorder F60.3 [facility] [address] [id number] [address] [place] [address] Jul, Dry skin dermatitis L85.3 [facility] [address] [id number] [address] [place] [address] Jul, [facility] [address] [id number] [address] [place] [address] Jul, Paranoid schizophrenia F20.0 [facility] [address] [id number] [address] [place] [phone] May, Paranoid schizophrenia F20.0 ; Posttraumatic stress disorder F43.10 ; Attention deficit hyperactivity disorder (ADHD), inattentive type, 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 and Borderline personality disorder F60.3 [facility] [address] [id number] [address] [place] [address] May, [facility] [address] [id number] [address] [place] [id number] May, Paranoid schizophrenia F20.0 [facility] [address] [id number] [address] [place] [address] May, Paranoid schizophrenia F20.0 ; Posttraumatic stress disorder F43.10 ; Attention deficit hyperactivity disorder (ADHD), inattentive type, 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 and Borderline personality disorder F60.3 [facility] [address] [id number] [address] [place] [address] Apr, [facility] [address] [id number] [address] [place] [address] Apr, Paranoid schizophrenia F20.0 ; Posttraumatic stress disorder F43.10 ; Attention deficit hyperactivity disorder (ADHD), inattentive type, 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 and Borderline personality disorder F60.3 [facility] [address] [id number] [address] [place] [id number] Apr, [facility] [address] [id number] [address] [place] [address] Apr, Schizoaffective disorder, de pressive type F25.1 and Borderline personality disorder F60.3 [facility] [address] [id number] [address] [place] [address] Apr, Paranoid schizophrenia F20.0 ; Posttraumatic stress disorder F43.10 ; Attention deficit hyperactivity disorder (ADHD), inattentive type, 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 and Borderline personality disorder F60.3 [facility] [address] [id number] [address] [place] [address] Apr, [facility] [address] [id number] [address] [place] [address] Apr, Paranoid schizophrenia F20.0 ; Posttraumatic stress disorder F43.10 ; Attention deficit hyperactivity disorder (ADHD), inattentive type, 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 and Borderline personality disorder F60.3 [facility] [address] [id number] [address] [place] [address] Apr, [facility] [address] [id number] [address] [place] [phone] Mar, Paranoid schizophrenia F20.0 [facility] [address] [id number] [address] [place] [phone] Mar, [facility] [address] [id number] [address] [address] Mar, Paranoid schizophrenia F20.0 ; Posttraumatic stress disorder F43.10 ; Attention deficit hyperactivity disorder (ADHD), inattentive type, 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 and Borderline personality disorder F60.3 [facility] [address] [id number] [address] [place] [address] February, Paranoid schizophrenia F20.0 [facility] [address] [id number] [address] [place] [address] February, Paranoid schizophrenia F20.0 ; Posttraumatic stress disorder F43.10 ; Attention deficit hyperactivity disorder (ADHD), inattentive type, 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 and Borderline personality disorder F60.3 [facility] [address] [id number] [address] [place] [address] February, Paranoid schizophrenia F20.0 ; Posttraumatic stress disorder F43.10 ; Attention deficit hyperactivity disorder (ADHD), inattentive type, 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 and Borderline personality disorder F60.3 [facility] [address] [id number] [address] [place] [phone] February, [facility] [address] [id number] [address] [place] [address] February, Paranoid schizophrenia F20.0 [facility] [address] [id number] [address] [place] [phone] February, Paranoid schizophrenia F20.0 [facility] [address] [id number] [address] [place] [address] February, Paranoid schizophrenia F20.0 ; Posttraumatic stress disorder F43.10 ; Attention deficit hyperactivity disorder (ADHD), inattentive type, 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 and Borderline personality disorder F60.3 [facility] [address] [id number] [address] [place] [phone] Jan, Paranoid schizophrenia F20.0 ; Posttraumatic stress disorder F43.10 ; Attention deficit hyperactivity disorder (ADHD), inattentive type, 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 and Borderline personality disorder F60.3 [facility] [address] [id number] [address] [place] [address] Jan, Paranoid schizophrenia F20.0 [facility] [address] [id number] [address] [place] [phone] Jan, Paranoid schizophrenia F20.0 [facility] [address] [id number] [address] [place] [address] Jan, Paranoid schizophrenia F20.0 ; Posttraumatic stress disorder F43.10 ; Attention deficit hyperactivity disorder (ADHD), inattentive type, 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 and Borderline personality disorder F60.3 [facility] [address] [id number] [address] [place] [address] Dec, [facility] [address] [id number] [address] [place] [address] Nov, Paranoid schizophrenia F20.0 ; Posttraumatic stress disorder F43.10 ; Attention deficit hyperactivity disorder (ADHD), inattentive type, 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 and Borderline personality disorder F60.3 [facility] [address] [id number] [address] [place] [phone] Nov, [facility] [address] [facility] [id number] [address] [place] [address] Oct, Paranoid schizophrenia F20.0 [facility] [address] [id number] [address] [place] [address] Oct, Paranoid schizophrenia F20.0 ; Posttraumatic stress disorder F43.10 ; Attention deficit hyperactivity disorder (ADHD), inattentive type, 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 ; Borderline personality disorder F60.3 and 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 [facility] [address] [id number] [address] [place] [address] Oct, [facility] [address] [id number] [address] [place] [phone] Oct, [facility] [address] [facility] [id number] [address] [place] [address] Sep, [facility] [address] [id number] [address] [place] [address] Sep, Paranoid schizophrenia F20.0 ; Posttraumatic stress disorder F43.10 ; Attention deficit hyperactivity disorder (ADHD), inattentive type, 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 and Borderline personality disorder F60.3 [facility] [address] [facility] [id number] [address] [place] [address] Sep, Paranoid schizophrenia F20.0 [facility] [address] [id number] [address] [place] [phone] Aug, Paranoid schizophrenia F20.0 ; Posttraumatic stress disorder F43.10 ; Attention deficit hyperactivity disorder (ADHD), inattentive type, 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 and Borderline personality disorder F60.3 [facility] [address] [facility] [id number] [address] [place] [address] Aug, Paranoid schizophrenia F20.0 ; Posttraumatic stress disorder F43.10 ; Attention deficit hyperactivity disorder (ADHD), inattentive type, 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 and Borderline personality disorder F60.3 [facility] [address] [facility] [id number] [address] [place] [address] Aug, [facility] [address] [facility] [id number] [address] [place] [phone] Jul, Paranoid schizophrenia F20.0 ; Posttraumatic stress disorder F43.10 ; Attention deficit hyperactivity disorder (ADHD), inattentive type, 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 and Borderline personality disorder F60.3 [facility] [address] [facility] [id number] [address] [place] [phone] Jul, Paranoid schizophrenia F20.0 [facility] [address] [facility] [id number] [address] [place] [address] Jul, Paranoid schizophrenia F20.0 ; Posttraumatic stress disorder F43.10 ; Attention deficit hyperactivity disorder (ADHD), inattentive type, 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 [address] [id number] [address] [place] [address], [place] [address] May, Other middle or intermediate school principal (current) dr ug therapy Z79.899 [facility] [address] [id number] [address] [place] [address] May, [facility] [address] [id number] [address] [place] [phone] May, [facility] [address] [id number] [address] [place] [phone] May, Attention deficit hyperactiv ity disorder (ADHD), inattentive type, mild F90.0 [facility] [address] [id number] [address] [place] [phone] May, [facility] [address] [id number] [address] [place] [phone] May, Attention deficit hyperactiv ity disorder (ADHD), inattentive type, mild F90.0 [facility] [address] [id number] [address] [place] [address] May, Paranoid schizophrenia F20.0 ; Posttraumatic stress disorder F43.10 ; Attention deficit hyperactivity disorder (ADHD), inattentive type, 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 [facility] [address] [id number] [address] [place] [address] February, [facility] [address] [id number] [address] [place] [address] February, Paranoid schizophrenia F20.0 ; Posttraumatic stress disorder F43.10 and Attention deficit hyperactivity disorder (ADHD), inattentive type, 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 [facility] [address] [id number] [address] [place] [address] February, Paranoid schizophrenia F20.0 ; Posttraumatic stress disorder F43.10 and Attention deficit hyperactivity disorder (ADHD), inattentive type, 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20 [facility] [address] [id number] [address] [place] [address] [id number] Nov, Dental examination Z01.20 [facility] [address] [id number] [address] [place] [address] [id number] 14 Nov, 2016 Dental caries K02.9 [facility] [address] [id number] [address] [place] [address] 13 Nov, 2016 High risk medication use Z79 .899 [facility] [address] [id number] [address] [place] [address] Nov, Paranoid schizophrenia F20.0 ; Posttraumatic stress disorder F43.10 ; Attention deficit hyperactivity disorder (ADHD), inattentive type, 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 and Borderline personality disorder in adult F60.3 [facility] [address] [id number] [address] [place] [address] [id number] Oct, Dental caries K02.9 [facility] [address] [facility] [id number] [address] [place] [address] Sep, Paranoid schizophrenia F20.0 ; Posttraumatic stress disorder F43.10 and Attention deficit hyperactivity disorder (ADHD), inattentive type, 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 [facility] [address] [id number] [address] [place] [address] Aug, Paranoid schizophrenia F20.0 ; Posttraumatic stress disorder F43.10 and Attention deficit hyperactivity disorder (ADHD), inattentive type, 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 [facility] [address] [facility] [id number] [address] [place] [address] Aug, Strep throat J02.0 and Cough R05 [facility] [address] [facility] [id number] [address] [place] [phone] Aug, [facility] [address] [facility] [id number] [address] [place] [phone] 24 Jul, 2016 Paranoid schizophrenia F20.0 ; Posttraumatic stress disorder F43.10 and Attention deficit hyperactivity disorder (ADHD), inattentive type, 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 [facility] [address] [id number] [address] [place] [address] Jul, [facility] [address] [facility] [id number] [address] [place] [phone] Jun, Paranoid schizophrenia F20.0 ; Posttraumatic stress disorder F43.10 and Attention deficit hyperactivity disorder (ADHD), inattentive type, 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 [facility] [address] [id number] [address] [place] [address] [id number] Jun, Dental examination Z01.20 [facility] [address] [id number] [address] [place] [phone] Jun, [facility] [address] [facility] [id number] [address] [place] [address] May, Paranoid schizophrenia F20.0 [facility] [address] [id number] [address] [place] [address] May, Paranoid schizophrenia F20.0 ; Posttraumatic stress disorder F43.10 and Attention deficit hyperactivity disorder (ADHD), inattentive type, 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 [facility] [address] [id number] [address] [place] [phone] May, [facility] [place] [address] [id number] [address] [place] [id number] May, Paranoid schizophrenia F20.0 [facility] [address] [id number] [address] [place] [phone] May, [facility] [address] [id number] [address] [place] [phone] May, Paranoid schizophrenia F20.0 [facility] [address] [id number] [address] [place] [address] May, Schizoaffective disorder, un specified F25.9 [facility] [address] [id number] [address] [place] [address] May, Schizoaffective disorder, un specified F25.9 [facility] [address] [id number] [address] [place] [phone] May, [facility] [address] [id number] [address] [place] [phone] May, Paranoid schizophrenia F20.0 [facility] [address] [id number] [address] [place] [address] May, Paranoid schizophrenia F20.0 ; Posttraumatic stress disorder F43.10 and Attention deficit hyperactivity disorder (ADHD), inattentive type, 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 [facility] [address] [id number] [address] [place] [phone] Mar, [facility] [address] [id number] [address] [place] [phone] Mar, Paranoid schizophrenia F20.0 ; Posttraumatic stress disorder F43.10 and Attention deficit hyperactivity disorder (ADHD), inattentive type, 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 [facility] [address] [id number] [address] [place] [id number] Mar, Paranoid schizophrenia F20.0 [facility] [address] [id number] [address] [place] [phone] Mar, Paranoid schizophrenia F20.0 ; Attention deficit hyperactivity disorder (ADHD), inattentive type, 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 and Posttraumatic stress disorder F43.10 [facility] [address] [id number] [address] [place] [phone] Mar, [facility] [address] [id number] [address] [place] [phone] Mar, Paranoid schizophrenia F20.0 ; Posttraumatic stress disorder F43.10 and Attention deficit hyperactivity disorder (ADHD), inattentive type, 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 [facility] [address] [id number] [address] [place] [phone] February, [facility] [address] [id number] [address] [place] [phone] February, [facility] [address] [id number] [address] [place] [address] February, [facility] [address] [id number] [address] [place] [address] February, [facility] [address] [id number] [address] [place] [address] Jan, Paranoid schizophrenia F20.0 [facility] [address] [id number] [address] [place] [id number] Jan, Dental examination Z01.20 [facility] [address] [id number] [address] [place] [address] [id number] Jan, Dental caries K02.9 [facility] [address] [id number] [address] [place] [address] [id number] Jan, Dental examination Z01.20 [facility] [address] [id number] [address] [place] [address] [id number] Dec, Encounter for dental examina tion Z01.20 [facility] [address] [id number] [address] [place] [address] 30 Dec, 2015 Paranoid schizophrenia F20.0 [facility] [address] [id number] [address] [place] [address] [id number] Dec, Dental examination Z01.20 [facility] [address] [id number] [address] [place] [address] Dec, [facility] [address] [id number] [address] [place] [address] Dec, Paranoid schizophrenia F20.0 ; Posttraumatic stress disorder F43.10 and Attention deficit hyperactivity disorder (ADHD), inattentive type, 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 [facility] [address] [id number] [address] [place] [address] Nov, Schizoaffective disorder, un specified F25.9 [facility] [address] [id number] [address] [place] [address] Oct, Paranoid schizophrenia F20.0 [facility] [address] [id number] [address] [place] [address] Oct, [facility] [address] [id number] [address] [place] [address] Sep, Paranoid schizophrenia F20.0 ; Posttraumatic stress disorder F43.10 and Attention deficit hyperactivity disorder (ADHD), inattentive type, 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 [facility] [address] [id number] [address] [place] [address] Sep, [facility] [address] [id number] [address] [place] [address] Sep, Paranoid schizophrenia F20.0 ; Posttraumatic stress disorder F43.10 and Attention deficit hyperactivity disorder (ADHD), inattentive type, 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 [facility] [address] [id number] [address] [place] [address] Aug, Paranoid schizophrenia F20.0 [facility] [address] [id number] [address] [place] [address] Aug, [facility] [address] [id number] [address] [place] [address] Aug, Posttraumatic stress disorde r F43.10 ; Paranoid schizophrenia F20.0 and Attention deficit hyperactivity disorder (ADHD), inattentive type, 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 [facility] [address] [id number] [address] [place] [address] Jul, Bipolar disorder, unspecifie d F31.9 [facility] [address] [id number] [address] [place] [address] Jul, [facility] [address] [id number] [address] [place] [address] Jun, [facility] [address] [id number] [address] [place] [address] Jun, Schizoaffective disorder, ch ronic 295.72 ; Posttraumatic stress disorder 309.81 and Attention deficit disorder of childhood without mention of hyperactivity 314.00 [facility] [address] [id number] [address] [place] [address] May, [facility] [address] [id number] [address] [place] [address] May, [facility] [address] [id number] [address] [place] [address] May, Schizoaffective disorder, ch ronic 295.72 ; Posttraumatic stress disorder 309.81 ; Attention deficit disorder of childhood without mention of hyperactivity 314.00 and Bipolar disorder, unspecified 296.80 [facility] [address] [id number] [address] [place] [address] Apr, Schizoaffective disorder, ch ronic 295.72 [facility] [address] [id number] [address] [place] [address] Apr, [facility] [address] [id number] [address] [place] [address] Apr, Schizoaffective disorder, ch ronic 295.72 ; Posttraumatic stress disorder 309.81 and Attention deficit disorder of childhood without mention of hyperactivity 314.00 [facility] [address] [id number] [address] [place] [address] Mar, Disorganized schizophrenia, 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 [facility] [address] [id number] [address] [place] [address] Mar, [facility] [address] [id number] [address] [place] [address] Mar, [facility] [address] [id number] [address] [place] [address] Mar, [facility] [address] [id number] [address] [place] [address] Mar, [facility] [address] [id number] [address] [place] [address] February, Schizoaffective disorder, ch ronic 295.72 [facility] [address] [id number] [address] [place] [address] February, [facility] [address] [id number] [address] [place] [address] February, Attention 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 ; Posttraumatic stress disorder 309.81 and Schizoaffective disorder, chronic 295.72 [facility] [address] [id number] [address] [place] [address] Jan, [facility] [address] [id number] [address] [place] [address] Jan, [facility] [address] [id number] [address] [place] [address] Jan, [facility] [address] [id number] [facility] [place] [address] Dec, [facility] [address] [id number] [address] [place] [address], [place] [address] Dec, [facility] [address] [id number] [facility] [place] [address] Dec, [facility] [address] [id number] [address] [place] [address], [place] [address] Dec, [facility] [address] [id number] [address] [place] [address], [place] [address] Dec, [facility] [address] [id number] [address] [place] [address], [place] [address] Dec, [facility] [address] [id number] [address] [place] [address], [place] [address] Dec, [facility] [address] [id number] [address] [place] [address], [place] [address] Dec, [facility] [address] [id number] [address] [place] [address], [place] [address] Nov, [facility] [address] [id number] [address] [place] [address], [place] [address] Nov, [facility] [address] [id number] [address] [place] [address], [place] [address] Nov, [facility] [address] [id number] [address] [place] [address], [place] [address] Nov, [facility] [address] [id number] [address] [place] [address], [place] [address] Nov, [facility] [address] [id number] [address] [place] [address], [place] [address] Nov, [facility] [address] [id number] [address] [place] [address], [place] [address] 05 Nov, 2014 [facility] [address] [id number] [address] [place] [address], [place] [address] 05 Nov, 2014 [facility] [address] [id number] [address] [place] [address], [place] [address] Nov, [facility] [address] [id number] [address] [place] [address], [place] [address] Nov, [facility] [address] [id number] [address] [place] [address], [place] [address] Oct, [facility] [address] [id number] [address] [place] [address], [place] [address] Oct, [facility] [address] [id number] [address] [place] [address], [place] [address] Oct, [facility] [address] [id number] [address] [place] [address], [place] [address] Oct, [facility] [address] [id number] [address] [place] [address], [place] [address] Oct, [facility] [address] [id number] [address] [place] [address], [place] [address] Oct, [facility] [address] [id number] [address] [place] [address], [place] [address] Oct, [facility] [address] [id number] [address] [place] [address], [place] [address] Sep, [facility] [address] [id number] [address] [place] [address], [place] [address] Sep, [facility] [address] [id number] [address] [place] [address], [place] [address] Sep, [facility] [address] [id number] [address] [place] [address], [place] [address] Sep, [facility] [address] [id number] [address] [place] [address], [place] [address] Aug, [facility] [address] [id number] [address] [place] [address], [place] [address] Aug, [facility] [address] [id number] [address] [place] [address], [place] [address] Aug, [facility] [address] [id number] [address] [place] [address], [place] [address] Aug, [facility] [address] [id number] [address] [place] [address], [place] [address] Aug, [facility] [address] [id number] [address] [place] [address], [place] [address] Aug, [facility] [address] [id number] [address] [place] [address], [place] [address] Jul, [facility] [address] [id number] [address] [place] [address], [place] [address] Jul, [facility] [address] [id number] [address] [place] [address], [place] [address] Jul, [facility] [address] [id number] [address] [place] [address], [place] [address] Jul, [facility] [address] [id number] [address] [place] [address], [place] [address] Jul, [facility] [address] [id number] [address] [place] [address], [place] [address] Jul, [facility] [address] [id number] [address] [place] [address], [place] [address] 27 Jun, 2014 [facility] [address] [id number] [address] [place] [address], [place] [address] 27 Jun, 2014 [facility] [address] [id number] [address] [place] [address], [place] [address] Jun, [facility] [address] [id number] [address] [place] [address], [place] [address] Jun, [facility] [address] [id number] [address] [place] [address], [place] [address] Jun, [facility] [address] [id number] [address] [place] [address], [place] [address] Jun, [facility] [address] [id number] [facility] [place] [address] Jun, 2013 [facility] [address] [id number] [address] [place] [address], [place] [address] Jun, [facility] [address] [id number] [address] [place] [address], [place] [address] Jun, [facility] [address] [id number] [address] [place] [address], [place] [address] Jun, [facility] [address] [id number] [address] [place] [address], [place] [address] Jun, [facility] [address] [id number] [address] [place] [address], [place] [address] May, [facility] [address] [id number] [address] [place] [address], [place] [address] May, [facility] [address] [id number] [address] [place] [address], [place] [address] May, [facility] [address] [id number] [address] [place] [address], [place] [address] May, [facility] [address] [id number] [address] [place] [address], [place] [address] May, [facility] [address] [id number] [address] [place] [address], [place] [address] May, [facility] [address] [id number] [address] [place] [address], [place] [address] May, [facility] [address] [id number] [address] [place] [address], [place] [address] May, [facility] [address] [id number] [address] [place] [address], [place] [address] May, [facility] [address] [id number] [address] [place] [address], [place] [address] May, [facility] [address] [id number] [facility] [place] [address] Apr, [facility] [address] [id number] [facility] [place] [address] Apr, [facility] [address] [id number] [address] [place] [address], [place] [address] Apr, [facility] [address] [id number] [address] [place] [address], [place] [address] Apr, [facility] [address] [id number] [address] [place] [address], [place] [address] Apr, [facility] [address] [id number] [address] [place] [address], [place] [address] Apr, [facility] [address] [id number] [address] [place] [address], [place] [address] Apr, [facility] [address] [id number] [address] [place] [address], [place] [address] Apr, [facility] [address] [id number] [address] [place] [address], [place] [address] Apr, [facility] [address] [id number] [address] [place] [address], [place] [address] Apr, [facility] [address] [id number] [address] [place] [address], [place] [address] Mar, [facility] [address] [id number] [address] [place] [address], [place] [address] Mar, [facility] [address] [id number] [address] [place] [address], [place] [address] Mar, [facility] [address] [id number] [address] [place] [address], [place] [address] Mar, [facility] [address] [id number] [address] [place] [address], [place] [address] Mar, [facility] [address] [id number] [address] [place] [address], [place] [address] Mar, [facility] [address] [id number] [facility] [place] [address] 18 Mar, 2014 [facility] [address] [id number] [facility] [place] [address] Mar, [facility] [address] [id number] [facility] [place] [address] 16 Mar, 2014 [facility] [address] [id number] [address] [place] [address], [place] [address] Mar, [facility] [address] [id number] [address] [place] [address], [place] [address] Mar, [facility] [address] [id number] [address] [place] [address], [place] [address] Mar, [facility] [address] [id number] [address] [place] [address], [place] [address] Mar, [facility] [address] [id number] [address] [place] [address], [place] [address] Mar, [facility] [address] [id number] [address] [place] [address], [place] [address] Mar, [facility] [address] [id number] [address] [place] [address], [place] [address] Mar, [facility] [address] [id number] [address] [place] [address], [place] [address] Mar, [facility] [address] [id number] [address] [place] [address], [place] [address] Mar, [facility] [address] [id number] [address] [place] [address], [place] [address] Mar, [facility] [address] [id number] [address] [place] [address], [place] [address] Mar, [facility] [address] [id number] [address] [place] [address], [place] [address] February, [facility] [address] [id number] [address] [place] [address] [place] [address] February, [facility] [address] [id number] [facility] [place] [address] February, [facility] [address] [id number] [address] [place] [address], [place] [address] February, [facility] [address] [id number] [address] [place] [address], [place] [address] February, [facility] [address] [id number] [address] [place] [address], [place] [address] February, [facility] [address] [id number] [address] [place] [address], [place] [address] February, [facility] [address] [id number] [address] [place] [address], [place] [address] February, [facility] [address] [id number] [address] [place] [address], [place] [address] February, [facility] [address] [id number] [address] [place] [address], [place] [address] February, [facility] [address] [id number] [address] [place] [address], [place] [address] February, [facility] [address] [id number] [address] [place] [address], [place] [address] February, [facility] [address] [id number] [address] [place] [address], [place] [address] February, [facility] [address] [id number] [address] [place] [address], [place] [address] February, [facility] [address] [id number] [address] [place] [address], [place] [address] February, [facility] [address] [id number] [address] [place] [address], [place] [address] February, [facility] [address] [id number] [address] [place] [address], [place] [address] February, [facility] [address] [id number] [address] [place] [address], [place] [address] February, [facility] [address] [id number] [address] [place] [address], [place] [address] February, [facility] [address] [id number] [address] [place] [address], [place] [address] February, [facility] [address] [id number] [address] [place] [address], [place] [address] February, [facility] [address] [id number] [address] [place] [address], [place] [address] Jan, [facility] [address] [id number] [address] [place] [address], [place] [address] Jan, [facility] [address] [id number] [address] [place] [address], [place] [address] Jan, [facility] [address] [id number] [address] [place] [address], [place] [address] Jan, [facility] [address] [id number] [address] [place] [address], [place] [address] Jan, [facility] [address] [id number] [address] [place] [address], [place] [address] Jan, [facility] [address] [id number] [address] [place] [address], [place] [address] Jan, [facility] [address] [id number] [address] [place] [address], [place] [address] Jan, [facility] [address] [id number] [address] [place] [address], [place] [address] Dec, [facility] [address] [id number] [address] [place] [address], [place] [address] Dec, [facility] [address] [id number] [address] [place] [address], [place] [address] Dec, [facility] [address] [id number] [address] [place] [address], [place] [address] 19 Dec, 2013 [facility] [address] [id number] [address] [place] [address], [place] [address] 19 Dec, 2013 [facility] [address] [id number] [address] [place] [address], [place] [address] 15 Dec, 2013 [facility] [address] [id number] [address] [place] [address], [place] [address] 15 Dec, 2013 [facility] [address] [id number] [address] [place] [address], [place] [address] 11 Dec, 2013 [facility] [address] [id number] [address] [place] [address], [place] [address] 10 Dec, 2013 [facility] [address] [id number] [address] [place] [address], [place] [address] 10 Dec, 2013 [facility] [address] [id number] [address] [place] [address], [place] [address] 18 Nov, 2013 [facility] [address] [id number] [address] [place] [address], [place] [address] 17 Nov, 2013 [facility] [address] [id number] [address] [place] [address], [place] [address] 17 Nov, 2013 [facility] [address] [id number] [address] [place] [address], [place] [address] 05 Nov, 2013 [facility] [address] [id number] [address] [place] [address], [place] [address] 05 Nov, 2013 [facility] [address] [id number] [address] [place] [address], [place] [address] Oct, [facility] [address] [id number] [address] [place] [address], [place] [address] Oct, [facility] [address] [id number] [address] [place] [address], [place] [address] 16 Oct, 2013 [facility] [address] [id number] [address] [place] [address], [place] [address] Sep, [facility] [address] [id number] [address] [place] [address], [place] [address] Sep, [facility] [address] [id number] [address] [place] [address], [place] [address] Sep, [facility] [address] [id number] [address] [place] [address], [place] [address] Sep, [facility] [address] [id number] [address] [place] [address], [place] [address] Aug, [facility] [address] [id number] [address] [place] [address], [place] [address] Aug, [facility] [address] [id number] [address] [place] [address], [place] [address] Jul, [facility] [address] [id number] [address] [place] [address], [place] [address] Jul, [facility] [address] [id number] [address] [place] [address], [place] [address] Jul, [facility] [address] [id number] [address] [place] [address], [place] [address] Jul, [facility] [address] [id number] [address] [place] [address], [place] [address] Jul, [facility] [address] [id number] [address] [place] [address], [place] [address] 25 Jun, 2013 [facility] [address] [id number] [address] [place] [address], [place] [address] 25 Jun, 2012 [facility] [address] [id number] [address] [place] [address], [place] [address] 19 Sep, 2012 [facility] [address] [id number] [address] [place] [address], [place] [address] 18 Sep, 2012 [facility] [address] [id number] [address] [place] [address], [place] [address] 16 Sep, 2012 [facility] [address] [id number] [address] [place] [address], [place] [address] Jun, [facility] [address] [id number] [address] [place] [address], [place] [address] Jun, [facility] [address] [id number] [address] [place] [address], [place] [address] May, [facility] [address] [id number] [address] [place] [address], [place] [address] May, [facility] [address] [id number] [address] [place] [address], [place] [address] Apr, [facility] [address] [id number] [address] [place] [address], [place] [address] Apr, [facility] [address] [id number] [address] [place] [address], [place] [address] Apr, [facility] [address] [id number] [address] [place] [address], [place] [address] Mar, [facility] [address] [id number] [address] [place] [address], [place] [address] Mar, [facility] [address] [id number] [address] [place] [address], [place] [address] February, [facility] [address] [id number] [address] [place] [address], [place] [address] February, [facility] [address] [id number] [address] [place] [address], [place] [address] February, [facility] [address] [id number] [address] [place] [address], [place] [address] February, [facility] [address] [id number] [address] [place] [address], [place] [address] Jan, [facility] [address] [id number] [address] [place] [address], [place] [address] Jan, [facility] [address] [id number] [address] [place] [address], [place] [address] 16 Jan, 2013 [facility] [address] [id number] [address] [place] [address], [place] [address] 29 Dec, 2012 [facility] [address] [id number] [address] [place] [address], [place] [address] Dec, [facility] [address] [id number] [address] [place] [address], [place] [address] Dec, [facility] [address] [id number] [address] [place] [address], [place] [address] Dec, [facility] [address] [id number] [address] [place] [address], [place] [address] Nov, [facility] [address] [id number] [address] [place] [address], [place] [address] Nov, [facility] [address] [id number] [address] [place] [address], [place] [address] Oct, [facility] [address] [id number] [address] [place] [address], [place] [address] Oct, [facility] [address] [id number] [address] [place] [address], [place] [address] Oct, [facility] [address] [id number] [address] [place] [address], [place] [address] Oct, [facility] [address] [id number] [address] [place] [address], [place] [address] Aug, [facility] [address] [id number] [address] [place] [address], [place] [address] Aug, [facility] [address] [id number] [address] [place] [address], [place] [address] Jun, [facility] [address] [id number] [address] [place] [address], [place] [address] May, [facility] [address] [id number] [address] [place] [address], [place] [address] May, [facility] [address] [id number] [address] [place] [address], [place] [address] Apr, [facility] [address] [id number] [address] [place] [address], [place] [address] Apr, [facility] [address] [id number] [address] [place] [address], [place] [address] Apr, [facility] [address] [id number] [address] [place] [address], [place] [address] Mar, [facility] [address] [id number] [address] [place] [address], [place] [address] Mar, [facility] [address] [id number] [address] [place] [address], [place] [address] Mar, [facility] [address] [id number] [address] [place] [address], [place] [address] Mar, [facility] [address] [id number] [address] [place] [address], [place] [address] Mar, [facility] [address] [id number] [address] [place] [address], [place] [address] February, [facility] [address] [id number] [address] [place] [address], [place] [address] February, [facility] [address] [id number] [address] [place] [address], [place] [address] February, [facility] [address] [id number] [address] [place] [address], [place] [address] February, [facility] [address] [id number] [address] [place] [address], [place] [address] February, [facility] [address] [id number] [address] [place] [address], [place] [address] February, [facility] [address] [id number] [address] [place] [address], [place] [address] February, [facility] [address] [id number] [address] [place] [address], [place] [address] Jan, [facility] [address] [id number] [address] [place] [address], [place] [address] 18 Jan, 2012 [facility] [address] [id number] [address] [place] [address], [place] [address] 17 Jan, 2012 [facility] [address] [id number] [address] [place] [address], [place] [address] 13 Jan, 2012 [facility] [address] [id number] [address] [place] [address], [place] [address] 10 Jan, 2012 [facility] [address] [id number] [address] [place] [address], [place] [address] 04 Jan, 2012 [facility] [address] [id number] [address] [place] [address], [place] [address] 30 Dec, 2011 [facility] [address] [id number] [address] [place] [address], [place] [address] 24 Dec, 2011 [facility] [address] [id number] [address] [place] [address], [place] [address] 20 Dec, 2011 [facility] [address] [id number] [address] [place] [address], [place] [address] 13 Dec, 2011 [facility] [address] [id number] [address] [place] [address], [place] [address] 06 Dec, 2011 [facility] [address] [id number] [address] [place] [address], [place] [address] 28 Nov, 2011 [facility] [address] [id number] [address] [place] [address], [place] [address] 27 Nov, 2011 [facility] [address] [id number] [address] [place] [address], [place] [address] 25 Nov, 2011 [facility] [address] [id number] [address] [place] [address], [place] [address] 14 Nov, 2011 [facility] [address] [id number] [address] [place] [address], [place] [address] 10 Nov, 2011 [facility] [address] [id number] [address] [place] [address], [place] [address] 01 Nov, 2011 [facility] [address] [id number] [address] [place] [address], [place] [address] Oct, [facility] [address] [id number] [address] [place] [address], [place] [address] Oct, [facility] [address] [id number] [address] [place] [address], [place] [address] Oct, [facility] [address] [id number] [address] [place] [address], [place] [address] Oct, [facility] [address] [id number] [address] [place] [address], [place] [address] Oct, [facility] [address] [id number] [address] [place] [address], [place] [address] Sep, [facility] [address] [id number] [address] [place] [address], [place] [address] Sep, [facility] [address] [id number] [address] [place] [address], [place] [address] Sep, [facility] [address] [id number] [address] [place] [address], [place] [address] Sep, [facility] [address] [id number] [address] [place] [address], [place] [address] Sep, [facility] [address] [id number] [address] [place] [address], [place] [address] Sep, [facility] [address] [id number] [address] [place] [address], [place] [address] Sep, [facility] [address] [id number] [address] [place] [address], [place] [address] Sep, [facility] [address] [id number] [address] [place] [address], [place] [address] 05 Sep, 2011 [facility] [address] [id number] [address] [place] [address], [place] [address] 30 Aug, 2011 [facility] [address] [id number] [address] [place] [address], [place] [address] Aug, [facility] [address] [id number] [address] [place] [address], [place] [address] Aug, [facility] [address] [id number] [address] [place] [address], [place] [address] Aug, [facility] [address] [id number] [address] [place] [address], [place] [address] Aug, [facility] [address] [id number] [address] [place] [address], [place] [address] Aug, [facility] [address] [id number] [address] [place] [address], [place] [address] Aug, [facility] [address] [id number] [address] [place] [address] Aug, [facility] [address] [id number] [address] [place] [address], [place] [address] Aug, [facility] [address] [id number] [address] [place] [address], [place] [address] Aug, [facility] [address] [id number] [address] [place] [address], [place] [address] Aug, [facility] [address] [id number] [address] [place] [address] Aug, [facility] [address] [id number] [address] [place] [address] Jul, [facility] [address] [id number] [address] [place] [address] Jul, [facility] [address] [id number] [address] [place] [address], [place] [address] Jul, [facility] [address] [id number] [address] [place] [address] Jul, [facility] [address] [id number] [address] [place] [address] Jul, [facility] [address] [id number] [address] [place] [address] Jul, [facility] [address] [id number] [address] [place] [address] Jul, [facility] [address] [id number] [address] [place] [address] Jul, [facility] [address] [id number] [address] [place] [address] Jul, [facility] [address] [id number] [address] [place] [address] Jul, [facility] [address] [id number] [address] [place] [address] Nov, [facility] [address] [id number] [address] [place] [address] Aug, [facility] [address] [id number] [address] [place] [address] Aug, [facility] [address] [id number] [address] [place] [address] Aug, [facility] [address] [id number] [address] [place] [address] Aug, [facility] [address] [id number] [address] [place] [address] Jul, IMMUNIZATIONS No Known Immunizations SOCIAL HISTORY Never Assessed REASON FOR VISIT PLAN OF CARE VITAL SIGNS MEDICATIONS Unknown Medications RESULTS No Results PROCEDURES Procedure Date Ordered Result Body Site THER/PROPH/DIAG INJ, SC/IM Sep 06, 2014 INSTRUCTIONS MEDICATIONS ADMINISTERED No Known Medications MEDICAL (GENERAL) HISTORY Type Description Date Medical History diabetes Medical History thyroid Surgical History appendix Surgical History gallbladder Surgical History eyes Surgical History hip Surgical History MRI on back and pelvis 06/08 Hospitalization History surgeries Hospitalization History [facility] Suicide attempt by hanging 2015 Hospitalization History [facility] 01/30/2018-02/10/20 08 Hospitalization History [facility] 05/04/18-
--- OUTSIDE RECORDS SUMMARY | 2020-04-04 02:00 | XMS REPORT ---
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 Active 54943130 Problem Generalized anxiety disorder 300.02 A ctive 52003521 Problem Obsessive-compulsive disorders 300.3 Active 482238947 Problem Catatonic schizophrenia, 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 372266578 Problem Disorganized schizophrenia, 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 43906542 Problem Paranoid schizophrenia F20.0 Active 22910987 Problem Borderline personality disorder F60.3 Active 92870281 Problem Paranoid schizophrenia, unspecified condition 295.30 Active 67818707 Problem Schizoaffective disorder, depressive type F25.1 Active 53167171 Problem Bipolar disorder, unspecified 296.80 Active 05768251 Problem Schizoaffective disorder, unspecified F25.9 Active 60058464 Problem Attention deficit hyperactivity disorder (ADHD), inattentive type, 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 10710653 Problem Posttraumatic stress disorder F43.10 Active 57673520 Problem High risk medication use Z79.899 Activ e [id number] ALLERGIES No Information ENCOUNTERS Encounter Location Date Diagnosis [facility] [address] [facility] [id number] [address] [place] [id number] Jun, [facility] [address] [facility] [id number] [address] [place] [phone] Apr, Paranoid schizophrenia F20.0 ; Posttraumatic stress disorder F43.10 ; Attention deficit hyperactivity disorder (ADHD), inattentive type, 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 and Borderline personality disorder F60.3 [facility] [address] [facility] [id number] [address] [place] [id number] Apr, Paranoid schizophrenia F20.0 [facility] [address] [facility] [id number] [address] [place] [phone] Apr, Paranoid schizophrenia F20.0 ; Posttraumatic stress disorder F43.10 ; Attention deficit hyperactivity disorder (ADHD), inattentive type, 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 and Borderline personality disorder F60.3 [facility] [address] [facility] [id number] [address] [place] [id number] Mar, Paranoid schizophrenia F20.0 [facility] [address] [id number] [address] [place] [phone] Mar, Paranoid schizophrenia F20.0 ; Posttraumatic stress disorder F43.10 ; Attention deficit hyperactivity disorder (ADHD), inattentive type, 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 and Borderline personality disorder F60.3 [facility] [address] [facility] [id number] [address] [place] [phone] February, Paranoid schizophrenia F20.0 [facility] [address] [facility] [id number] [address] [place] [phone] Jan, Paranoid schizophrenia F20.0 ; Posttraumatic stress disorder F43.10 ; Attention deficit hyperactivity disorder (ADHD), inattentive type, 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 and Borderline personality disorder F60.3 [facility] [address] [facility] [id number] [address] [place] [phone] Dec, Paranoid schizophrenia F20.0 ; Posttraumatic stress disorder F43.10 ; Attention deficit hyperactivity disorder (ADHD), inattentive type, 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 and Borderline personality disorder F60.3 [facility] [address] [id number] [address] [place] [phone] Dec, Paranoid schizophrenia F20.0 ; Posttraumatic stress disorder F43.10 ; Attention deficit hyperactivity disorder (ADHD), inattentive type, 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 and Borderline personality disorder F60.3 [facility] [address] [facility] [id number] [address] [place] [phone] Oct, Paranoid schizophrenia F20.0 ; Posttraumatic stress disorder F43.10 ; Attention deficit hyperactivity disorder (ADHD), inattentive type, 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 and Borderline personality disorder F60.3 [facility] [address] [id number] [address] [place] [id number] Oct, Paranoid schizophrenia F20.0 ; Posttraumatic stress disorder F43.10 ; Attention deficit hyperactivity disorder (ADHD), inattentive type, 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 [address] [id number] [address] [place] [id number] Jul, Dry skin dermatitis L85.3 [facility] [address] [id number] [address] [place] [id number] Jul, [facility] [address] [facility] [id number] [address] [place] [id number] Jul, Paranoid schizophrenia F20.0 [facility] [address] [id number] [address] [place] [phone] May, Paranoid schizophrenia F20.0 ; Posttraumatic stress disorder F43.10 ; Attention deficit hyperactivity disorder (ADHD), inattentive type, 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 and Borderline personality disorder F60.3 [facility] [address] [id number] [address] [place] [phone] May, [facility] [address] [id number] [address] [place] [phone] May, Paranoid schizophrenia F20.0 [facility] [address] [id number] [address] [place] [phone] May, Paranoid schizophrenia F20.0 ; Posttraumatic stress disorder F43.10 ; Attention deficit hyperactivity disorder (ADHD), inattentive type, 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 and Borderline personality disorder F60.3 [facility] [address] [id number] [address] [place] [id number] Apr, [facility] [address] [id number] [address] [place] [phone] Apr, Paranoid schizophrenia F20.0 ; Posttraumatic stress disorder F43.10 ; Attention deficit hyperactivity disorder (ADHD), inattentive type, 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 and Borderline personality disorder F60.3 [facility] [address] [id number] [address] [place] [id number] Apr, [facility] [address] [id number] [address] [place] [phone] Apr, Schizoaffective disorder, de pressive type F25.1 and Borderline personality disorder F60.3 [facility] [address] [id number] [address] [place] [id number] Apr, Paranoid schizophrenia F20.0 ; Posttraumatic stress disorder F43.10 ; Attention deficit hyperactivity disorder (ADHD), inattentive type, 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 and Borderline personality disorder F60.3 [facility] [address] [id number] [address] [place] [id number] Apr, [facility] [address] [id number] [address] [place] [id number] Apr, Paranoid schizophrenia F20.0 ; Posttraumatic stress disorder F43.10 ; Attention deficit hyperactivity disorder (ADHD), inattentive type, 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 and Borderline personality disorder F60.3 [facility] [address] [id number] [address] [place] [phone] Apr, [facility] [address] [id number] [address] [place] [phone] Mar, Paranoid schizophrenia F20.0 [facility] [address] [id number] [address] [place] [phone] Mar, [facility] [address] [id number] [address] [place] [phone] Mar, Paranoid schizophrenia F20.0 ; Posttraumatic stress disorder F43.10 ; Attention deficit hyperactivity disorder (ADHD), inattentive type, 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 and Borderline personality disorder F60.3 [facility] [address] [id number] [address] [place] [phone] February, Paranoid schizophrenia F20.0 [facility] [address] [id number] [address] [place] [id number] February, Paranoid schizophrenia F20.0 ; Posttraumatic stress disorder F43.10 ; Attention deficit hyperactivity disorder (ADHD), inattentive type, 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 and Borderline personality disorder F60.3 [facility] [address] [facility] [id number] [address] [place] [phone] February, Paranoid schizophrenia F20.0 ; Posttraumatic stress disorder F43.10 ; Attention deficit hyperactivity disorder (ADHD), inattentive type, 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 and Borderline personality disorder F60.3 [facility] [address] [id number] [address] [place] [phone] February, [facility] [address] [facility] [id number] [address] [place] [phone] February, Paranoid schizophrenia F20.0 [facility] [address] [facility] [id number] [address] [place] [phone] February, Paranoid schizophrenia F20.0 [facility] [address] [id number] [address] [place] [phone] February, Paranoid schizophrenia F20.0 ; Posttraumatic stress disorder F43.10 ; Attention deficit hyperactivity disorder (ADHD), inattentive type, 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 and Borderline personality disorder F60.3 [facility] [address] [id number] [address] [place] [id number] Jan, Paranoid schizophrenia F20.0 ; Posttraumatic stress disorder F43.10 ; Attention deficit hyperactivity disorder (ADHD), inattentive type, 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 and Borderline personality disorder F60.3 [facility] [address] [id number] [address] [place] [phone] Jan, Paranoid schizophrenia F20.0 [facility] [address] [id number] [address] [place] [phone] Jan, Paranoid schizophrenia F20.0 [facility] [address] [id number] [address] [place] [phone] Jan, Paranoid schizophrenia F20.0 ; Posttraumatic stress disorder F43.10 ; Attention deficit hyperactivity disorder (ADHD), inattentive type, 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 and Borderline personality disorder F60.3 [facility] [address] [id number] [address] [place] [phone] Dec, [facility] [address] [id number] [address] [place] [id number] Nov, Paranoid schizophrenia F20.0 ; Posttraumatic stress disorder F43.10 ; Attention deficit hyperactivity disorder (ADHD), inattentive type, 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 and Borderline personality disorder F60.3 [facility] [address] [id number] [address] [place] [phone] Nov, [facility] [address] [id number] [address] [place] [id number] Oct, Paranoid schizophrenia F20.0 [facility] [address] [id number] [address] [place] [phone] Oct, Paranoid schizophrenia F20.0 ; Posttraumatic stress disorder F43.10 ; Attention deficit hyperactivity disorder (ADHD), inattentive type, 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 ; Borderline personality disorder F60.3 and Other manager terminal (current) drug therapy Z79.899 [facility] [address] [id number] [address] [place] [phone] Oct, [facility] [address] [id number] [address] [place] [id number] Oct, [facility] [address] [id number] [address] [place] [phone] Sep, [facility] [address] [facility] [id number] [address] [place] [phone] Sep, Paranoid schizophrenia F20.0 ; Posttraumatic stress disorder F43.10 ; Attention deficit hyperactivity disorder (ADHD), inattentive type, 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 and Borderline personality disorder F60.3 [facility] [address] [id number] [address] [place] [phone] Sep, Paranoid schizophrenia F20.0 [facility] [address] [id number] [address] [place] [phone] Aug, Paranoid schizophrenia F20.0 ; Posttraumatic stress disorder F43.10 ; Attention deficit hyperactivity disorder (ADHD), inattentive type, 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 and Borderline personality disorder F60.3 [facility] [address] [facility] [id number] [address] [place] [phone] Aug, Paranoid schizophrenia F20.0 ; Posttraumatic stress disorder F43.10 ; Attention deficit hyperactivity disorder (ADHD), inattentive type, 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 and Borderline personality disorder F60.3 [facility] [address] [facility] [id number] [address] [place] [id number] Aug, [facility] [address] [id number] [address] [place] [id number] Jul, Paranoid schizophrenia F20.0 ; Posttraumatic stress disorder F43.10 ; Attention deficit hyperactivity disorder (ADHD), inattentive type, 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 and Borderline personality disorder F60.3 [facility] [address] [facility] [id number] [address] [place] [id number] Jul, Paranoid schizophrenia F20.0 [facility] [address] [facility] [id number] [address] [place] [id number] Jul, Paranoid schizophrenia F20.0 ; Posttraumatic stress disorder F43.10 ; Attention deficit hyperactivity disorder (ADHD), inattentive type, 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 and Borderline personality disorder F60.3 [facility] [address] [id number] [address] [place] [id number] Jun, Paranoid schizophrenia F20.0 ; Posttraumatic stress disorder F43.10 ; Attention deficit hyperactivity disorder (ADHD), inattentive type, 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 and Borderline personality disorder F60.3 [facility] [address] [id number] [address] [place] [phone] May, Other manager terminal (current) dr ug therapy Z79.899 [facility] [address] [id number] [address] [place] [id number] May, [facility] [address] [id number] [address] [place] [id number] May, [facility] [address] [id number] [address] [place] [phone] May, Attention deficit hyperactiv ity disorder (ADHD), inattentive type, mild F90.0 [facility] [address] [id number] [address] [place] [phone] May, [facility] [address] [id number] [address] [place] [phone] May, Attention deficit hyperactiv ity disorder (ADHD), inattentive type, mild F90.0 [facility] [address] [id number] [address] [place] [id number] May, Paranoid schizophrenia F20.0 ; Posttraumatic stress disorder F43.10 ; Attention deficit hyperactivity disorder (ADHD), inattentive type, 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 and Other manager terminal (current) drug therapy Z79.899 [facility] [address] [id number] [address] [place] [phone] Apr, Paranoid schizophrenia F20.0 [facility] [address] [id number] [address] [place] [phone] Apr, Paranoid schizophrenia F20.0 ; Posttraumatic stress disorder F43.10 and Attention deficit hyperactivity disorder (ADHD), inattentive type, 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 [facility] [address] [id number] [address] [place] [id number] February, [facility] [address] [id number] [address] [place] [id number] February, Paranoid schizophrenia F20.0 ; Posttraumatic stress disorder F43.10 and Attention deficit hyperactivity disorder (ADHD), inattentive type, 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 [facility] [address] [id number] [address] [place] [phone] February, Paranoid schizophrenia F20.0 ; Posttraumatic stress disorder F43.10 and Attention deficit hyperactivity disorder (ADHD), inattentive type, 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 [facility] [address] [id number] [address] [place] [id number] Jan, Paranoid schizophrenia F20.0 ; Posttraumatic stress disorder F43.10 and Attention deficit hyperactivity disorder (ADHD), inattentive type, 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 [facility] [address] [id number] [address] [place] [id number] Dec, Dental examination Z01.20 [facility] [address] [id number] [address] [place] [address] [id number] Nov, Dental examination Z01.20 [facility] [address] [id number] [address] [place] [id number] Nov, Dental examination Z01.20 [facility] [address] [id number] [address] [place] [id number] Nov, Dental caries K02.9 [facility] [address] [id number] [address] [place] [id number] 13 Nov, 2016 High risk medication use Z79 .899 [facility] [address] [id number] [address] [place] [phone] Nov, Paranoid schizophrenia F20.0 ; Posttraumatic stress disorder F43.10 ; Attention deficit hyperactivity disorder (ADHD), inattentive type, 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 and Borderline personality disorder in adult F60.3 [facility] [address] [id number] [address] [place] [id number] 18 Oct, 2016 Dental caries K02.9 [facility] [address] [id number] [address] [place] [id number] 05 Sep, 2016 Paranoid schizophrenia F20.0 ; Posttraumatic stress disorder F43.10 and Attention deficit hyperactivity disorder (ADHD), inattentive type, 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 [facility] [address] [id number] [address] [place] [id number] 16 Aug, 2016 Paranoid schizophrenia F20.0 ; Posttraumatic stress disorder F43.10 and Attention deficit hyperactivity disorder (ADHD), inattentive type, 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 [facility] [address] [id number] [address] [place] [phone] Aug, Strep throat J02.0 and Cough R05 [facility] [address] [id number] [address] [place] [phone] Aug, [facility] [address] [id number] [address] [place] [phone] 24 Jul, 2016 Paranoid schizophrenia F20.0 ; Posttraumatic stress disorder F43.10 and Attention deficit hyperactivity disorder (ADHD), inattentive type, 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 [facility] [address] [id number] [address] [place] [phone] Jul, [facility] [address] [id number] [address] [place] [id number] 28 Jun, 2016 Paranoid schizophrenia F20.0 ; Posttraumatic stress disorder F43.10 and Attention deficit hyperactivity disorder (ADHD), inattentive type, 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 [facility] [address] [id number] [address] [place] [address] [id number] 22 Jun, 2016 Dental examination Z01.20 [facility] [address] [id number] [address] [place] [phone] 12 Jun, 2016 [facility] [address] [id number] [address] [place] [id number] May, Paranoid schizophrenia F20.0 [facility] [address] [id number] [address] [place] [phone] May, Paranoid schizophrenia F20.0 ; Posttraumatic stress disorder F43.10 and Attention deficit hyperactivity disorder (ADHD), inattentive type, 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 [facility] [address] [id number] [address] [place] [id number] May, [facility] [address] [id number] [address] [place] [id number] May, Paranoid schizophrenia F20.0 [facility] [address] [id number] [address] [place] [id number] May, [facility] [address] [id number] [address] [place] [id number] May, Paranoid schizophrenia F20.0 [facility] [address] [id number] [address] [place] [id number] May, Schizoaffective disorder, un specified F25.9 [facility] [address] [id number] [address] [place] [phone] May, Schizoaffective disorder, un specified F25.9 [facility] [address] [id number] [address] [place] [phone] May, [facility] [address] [id number] [address] [place] [id number] May, Paranoid schizophrenia F20.0 [facility] [address] [id number] [address] [place] [id number] May, Paranoid schizophrenia F20.0 ; Posttraumatic stress disorder F43.10 and Attention deficit hyperactivity disorder (ADHD), inattentive type, 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 [facility] [address] [id number] [address] [place] [id number] Mar, [facility] [address] [id number] [address] [place] [phone] Mar, Paranoid schizophrenia F20.0 ; Posttraumatic stress disorder F43.10 and Attention deficit hyperactivity disorder (ADHD), inattentive type, 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 [facility] [address] [id number] [address] [place] [id number] Mar, Paranoid schizophrenia F20.0 [facility] [address] [id number] [address] [place] [phone] Mar, Paranoid schizophrenia F20.0 ; Attention deficit hyperactivity disorder (ADHD), inattentive type, 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 and Posttraumatic stress disorder F43.10 [facility] [address] [id number] [address] [place] [id number] Mar, [facility] [address] [id number] [address] [place] [phone] Mar, Paranoid schizophrenia F20.0 ; Posttraumatic stress disorder F43.10 and Attention deficit hyperactivity disorder (ADHD), inattentive type, 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 [facility] [address] [id number] [address] [place] [phone] February, [facility] [address] [id number] [address] [place] [phone] February, [facility] [address] [id number] [address] [place] [phone] February, [facility] [address] [id number] [address] [place] [phone] February, [facility] [address] [id number] [address] [place] [id number] Jan, Paranoid schizophrenia F20.0 [facility] [address] [address] [id number] [address] [place] [address] [id number] Jan, Dental examination Z01.20 [facility] [address] [id number] [address] [place] [address] [id number] Jan, Dental caries K02.9 [facility] [address] [id number] [place] [id number] Jan, Dental examination Z01.20 [facility] [address] [id number] [place] [id number] Dec, Encounter for dental examina tion Z01.20 [facility] [address] [id number] [address] [place] [id number] Dec, Paranoid schizophrenia F20.0 [facility] [address] [id number] [address] [place] [address] [id number] Dec, Dental examination Z01.20 [facility] [address] [id number] [address] [place] [id number] Dec, [facility] [address] [id number] [address] [place] [id number] Dec, Paranoid schizophrenia F20.0 ; Posttraumatic stress disorder F43.10 and Attention deficit hyperactivity disorder (ADHD), inattentive type, 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 [facility] [address] [id number] [address] [place] [phone] Nov, Schizoaffective disorder, un specified F25.9 [facility] [address] [id number] [address] [place] [id number] Oct, Paranoid schizophrenia F20.0 [facility] [address] [id number] [address] [place] [phone] Oct, [facility] [address] [id number] [address] [place] [id number] Sep, Paranoid schizophrenia F20.0 ; Posttraumatic stress disorder F43.10 and Attention deficit hyperactivity disorder (ADHD), inattentive type, 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 [facility] [address] [id number] [address] [place] [phone] Sep, [facility] [address] [id number] [address] [place] [phone] Sep, Paranoid schizophrenia F20.0 ; Posttraumatic stress disorder F43.10 and Attention deficit hyperactivity disorder (ADHD), inattentive type, 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 [facility] [address] [id number] [address] [place] [id number] Aug, Paranoid schizophrenia F20.0 [facility] [address] [id number] [address] [place] [phone] Aug, [facility] [address] [facility] [id number] [address] [place] [phone] Aug, Posttraumatic stress disorde r F43.10 ; Paranoid schizophrenia F20.0 and Attention deficit hyperactivity disorder (ADHD), inattentive type, 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 [facility] [address] [facility] [id number] [address] [place] [id number] Jul, Bipolar disorder, unspecifie d F31.9 [facility] [address] [facility] [id number] [address] [place] [phone] Jul, [facility] [address] [facility] [id number] [address] [place] [phone] Jun, [facility] [address] [facility] [id number] [address] [place] [id number] Jun, Schizoaffective disorder, ch ronic 295.72 ; Posttraumatic stress disorder 309.81 and Attention deficit disorder of childhood without mention of hyperactivity 314.00 [facility] [address] [facility] [id number] [address] [place] [id number] May, [facility] [address] [id number] [address] [place] [phone] May, [facility] [address] [facility] [id number] [address] [place] [phone] May, Schizoaffective disorder, ch ronic 295.72 ; Posttraumatic stress disorder 309.81 ; Attention deficit disorder of childhood without mention of hyperactivity 314.00 and Bipolar disorder, unspecified 296.80 [facility] [address] [id number] [address] [place] [id number] Apr, Schizoaffective disorder, ch ronic 295.72 [facility] [address] [id number] [address] [place] [id number] Apr, [facility] [address] [id number] [address] [place] [id number] Apr, Schizoaffective disorder, ch ronic 295.72 ; Posttraumatic stress disorder 309.81 and Attention deficit disorder of childhood without mention of hyperactivity 314.00 [facility] [address] [id number] [address] [place] [phone] Mar, Disorganized schizophrenia, 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 [facility] [address] [id number] [address] [place] [phone] Mar, [facility] [address] [id number] [address] [place] [phone] Mar, [facility] [address] [facility] [id number] [address] [place] [phone] Mar, [facility] [address] [id number] [address] [place] [phone] Mar, [facility] [address] [facility] [id number] [address] [place] [phone] February, Schizoaffective disorder, ch ronic 295.72 [facility] [address] [facility] [id number] [address] [place] [phone] February, [facility] [address] [id number] [address] [place] [phone] February, Attention 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 ; Posttraumatic stress disorder 309.81 and Schizoaffective disorder, chronic 295.72 [facility] [address] [id number] [address] [place] [phone] Jan, [facility] [address] [id number] [address] [place] [phone] Jan, [facility] [address] [id number] [address] [place] [address], [place] [id number] Jan, [facility] [address] [id number] [address] [place] [address], [place] [id number] Dec, [facility] [address] [id number] [address] [place] [address], [place] [address] Dec, [facility] [address] [id number] [address] [place] [address], [place] [address] Dec, [facility] [address] [id number] [address] [place] [address], [place] [id number] Dec, [facility] [address] [id number] [address] [place] [address], [place] [id number] Dec, [facility] [address] [id number] [address] [place] [address], [place] [id number] Dec, [facility] [address] [id number] [address] [place] [address], [place] [id number] Dec, [facility] [address] [id number] [address] [place] [address], [place] [address] Dec, [facility] [address] [id number] [address] [place] [address], [place] [address] Nov, [facility] [address] [id number] [address] [place] [address], [place] [address] Nov, [facility] [address] [id number] [address] [place] [address], [place] [id number] Nov, [facility] [address] [id number] [address] [place] [address], [place] [id number] Nov, [facility] [address] [id number] [address] [place] [address], [place] [id number] Nov, [facility] [address] [id number] [address] [place] [address], [place] [address] Nov, 2014 [facility] [address] [id number] [address] [place] [address], [place] [address] Nov, [facility] [address] [id number] [address] [place] [address], [place] [id number] Nov, [facility] [address] [id number] [address] [place] [address], [place] [id number] Nov, [facility] [address] [id number] [address] [place] [address], [place] [address] Nov, [facility] [address] [id number] [address] [place] [address], [place] [address] Oct, [facility] [address] [id number] [address] [place] [address], [place] [address] Oct, [facility] [address] [id number] [address] [place] [address], [place] [address] Oct, [facility] [address] [id number] [address] [place] [address], [place] [id number] Oct, [facility] [address] [id number] [address] [place] [address], [place] [address] Oct, [facility] [address] [id number] [address] [place] [address], [place] [id number] Oct, [facility] [address] [id number] [address] [place] [address], [place] [id number] Oct, [facility] [address] [id number] [address] [place] [address], [place] [address] Sep, [facility] [address] [id number] [address] [place] [address], [place] [address] Sep, [facility] [address] [id number] [address] [place] [address], [place] [id number] Sep, [facility] [address] [id number] [address] [place] [address], [place] [id number] Sep, [facility] [address] [id number] [address] [place] [address], [place] [address] Aug, [facility] [address] [id number] [address] [place] [address], [place] [id number] Aug, [facility] [address] [id number] [address] [place] [address], [place] [address] Aug, [facility] [address] [id number] [address] [place] [address], [place] [address] Aug, [facility] [address] [id number] [address] [place] [address], [place] [id number] Aug, [facility] [address] [id number] [address] [place] [address], [place] [address] Aug, [facility] [address] [id number] [address] [place] [address], [place] [address] Jul, [facility] [address] [id number] [address] [place] [address], [place] [address] Jul, [facility] [address] [id number] [address] [place] [address], [place] [address] Jul, [facility] [address] [id number] [address] [place] [address], [place] [address] Jul, [facility] [address] [id number] [address] [place] [address], [place] [address] Jul, [facility] [address] [id number] [address] [place] [address], [place] [id number] Jul, [facility] [address] [id number] [address] [place] [address], [place] [address] 27 Jun, 2014 [facility] [address] [id number] [address] [place] [address], [place] [address] 27 Jun, 2014 [facility] [address] [id number] [address] [place] [address], [place] [id number] 26 Jun, 2014 [facility] [address] [id number] [address] [place] [address], [place] [id number] 26 Jun, 2014 [facility] [address] [id number] [address] [place] [address], [place] [address] Jun, [facility] [address] [id number] [address] [place] [address], [place] [address] Jun, 2013 [facility] [address] [id number] [address] [place] [address], [place] [address] Jun, [facility] [address] [id number] [address] [place] [address], [place] [address] Jun, 2013 [facility] [address] [id number] [address] [place] [address], [place] [address] Jun, 2013 [facility] [address] [id number] [address] [place] [address], [place] [address] Jun, [facility] [address] [id number] [address] [place] [address], [place] [address] Jun, [facility] [address] [id number] [address] [place] [address], [place] [address] May, [facility] [address] [id number] [address] [place] [address], [place] [address] May, [facility] [address] [id number] [address] [place] [address], [place] [address] May, [facility] [address] [id number] [address] [place] [address], [place] [address] May, [facility] [address] [id number] [address] [place] [address], [place] [address] May, [facility] [address] [id number] [address] [place] [address], [place] [address] May, [facility] [address] [id number] [address] [place] [address], [place] [address] May, [facility] [address] [id number] [address] [place] [address], [place] [address] May, [facility] [address] [id number] [address] [place] [address], [place] [address] May, [facility] [address] [id number] [facility] [place] [address] May, [facility] [address] [id number] [facility] [place] [address] Apr, [facility] [address] [id number] [facility] [place] [id number] Apr, [facility] [address] [id number] [address] [place] [address], [place] [id number] Apr, [facility] [address] [id number] [address] [place] [address], [place] [address] Apr, [facility] [address] [id number] [address] [place] [address], [place] [address] Apr, [facility] [address] [id number] [address] [place] [address], [place] [address] Apr, [facility] [address] [id number] [address] [place] [address], [place] [address] Apr, [facility] [address] [id number] [address] [place] [address], [place] [address] Apr, [facility] [address] [id number] [address] [place] [address], [place] [address] Apr, [facility] [address] [id number] [address] [place] [address], [place] [address] Apr, [facility] [address] [id number] [address] [place] [address], [place] [address] Mar, [facility] [address] [id number] [address] [place] [address], [place] [address] Mar, [facility] [address] [id number] [address] [place] [address], [place] [address] Mar, [facility] [address] [id number] [address] [place] [address], [place] [address] Mar, [facility] [address] [id number] [address] [place] [address], [place] [address] Mar, [facility] [address] [id number] [address] [place] [address], [place] [address] 18 Mar, 2014 [facility] [address] [id number] [address] [place] [address], [place] [id number] 18 Mar, 2014 [facility] [address] [id number] [address] [place] [address], [place] [address] 16 Mar, 2014 [facility] [address] [id number] [address] [place] [address], [place] [id number] 16 Mar, 2014 [facility] [address] [id number] [address] [place] [address], [place] [address] Mar, [facility] [address] [id number] [address] [place] [address], [place] [address] Mar, [facility] [address] [id number] [address] [place] [address], [place] [address] Mar, [facility] [address] [id number] [address] [place] [address], [place] [address] Mar, [facility] [address] [id number] [address] [place] [address], [place] [address] Mar, [facility] [address] [id number] [address] [place] [address], [place] [address] Mar, [facility] [address] [id number] [address] [place] [address], [place] [address] Mar, [facility] [address] [id number] [address] [place] [id number] Mar, [facility] [address] [id number] [address] [place] [address], [place] [address] Mar, [facility] [address] [id number] [address] [place] [address], [place] [id number] 04 Mar, 2014 [facility] [address] [id number] [address] [place] [address], [place] [address] 04 Mar, 2014 [facility] [address] [id number] [address] [place] [address], [place] [address] February, [facility] [address] [id number] [address] [place] [address], [place] [address] February, [facility] [address] [id number] [address] [place] [address], [place] [address] February, [facility] [address] [id number] [address] [place] [address], [place] [address] February, [facility] [address] [id number] [address] [place] [address], [place] [address] February, [facility] [address] [id number] [address] [place] [address], [place] [address] February, [facility] [address] [id number] [address] [place] [address], [place] [address] February, [facility] [address] [id number] [address] [place] [address], [place] [id number] February, [facility] [address] [id number] [address] [place] [address], [place] [address] February, [facility] [address] [id number] [address] [place] [address], [place] [address] February, [facility] [address] [id number] [address] [place] [address], [place] [address] February, [facility] [address] [id number] [address] [place] [address], [place] [address] February, [facility] [address] [id number] [address] [place] [address], [place] [id number] February, [facility] [address] [id number] [address] [place] [address], [place] [address] February, [facility] [address] [id number] [address] [place] [address], [place] [id number] February, [facility] [address] [id number] [address] [place] [address], [place] [address] February, [facility] [address] [id number] [address] [place] [address], [place] [id number] February, [facility] [address] [id number] [address] [place] [address], [place] [address] February, [facility] [address] [id number] [address] [place] [address], [place] [address] February, [facility] [address] [id number] [address] [place] [address], [place] [address] February, [facility] [address] [id number] [address] [place] [address], [place] [id number] February, [facility] [address] [id number] [address] [place] [address], [place] [id number] Jan, [facility] [address] [id number] [address] [place] [address], [place] [id number] Jan, [facility] [address] [id number] [address] [place] [address], [place] [id number] Jan, [facility] [address] [id number] [address] [place] [address], [place] [id number] Jan, [facility] [address] [id number] [address] [place] [address], [place] [id number] Jan, [facility] [address] [id number] [address] [place] [address], [place] [id number] Jan, [facility] [address] [id number] [address] [place] [address], [place] [id number] Jan, [facility] [address] [id number] [address] [place] [address], [place] [id number] Jan, [facility] [address] [id number] [address] [place] [address], [place] [id number] Dec, [facility] [address] [id number] [address] [place] [address], [place] [id number] Dec, [facility] [address] [id number] [address] [place] [address], [place] [id number] 20 Dec, 2013 [facility] [address] [id number] [facility] [place] [id number] 19 Dec, 2013 [facility] [address] [id number] [address] [place] [address], [place] [id number] 19 Dec, 2013 [facility] [address] [id number] [address] [place] [address], [place] [id number] 15 Dec, 2013 [facility] [address] [id number] [address] [place] [address], [place] [id number] 15 Dec, 2013 [facility] [address] [id number] [address] [place] [address], [place] [id number] 11 Dec, 2013 [facility] [address] [id number] [address] [place] [address], [place] [id number] 10 Dec, 2013 [facility] [address] [id number] [address] [place] [address], [place] [id number] 10 Dec, 2013 [facility] [address] [id number] [address] [place] [address], [place] [id number] 18 Nov, 2013 [facility] [address] [id number] [address] [place] [address], [place] [id number] 17 Nov, 2013 [facility] [address] [id number] [address] [place] [address], [place] [id number] 17 Nov, 2013 [facility] [address] [id number] [address] [place] [address], [place] [id number] 05 Nov, 2013 [facility] [address] [id number] [address] [place] [address], [place] [id number] Nov, [facility] [address] [id number] [address] [place] [address], [place] [id number] Oct, [facility] [address] [id number] [address] [place] [address], [place] [id number] Oct, [facility] [address] [id number] [address] [place] [address], [place] [id number] 16 Oct, 2013 [facility] [address] [id number] [address] [place] [address], [place] [id number] Sep, [facility] [address] [id number] [address] [place] [address], [place] [id number] Sep, [facility] [address] [id number] [address] [place] [address], [place] [id number] Sep, [facility] [address] [id number] [address] [place] [address], [place] [id number] Sep, [facility] [address] [id number] [address] [place] [address], [place] [id number] Aug, [facility] [address] [id number] [address] [place] [address], [place] [id number] Aug, [facility] [address] [id number] [address] [place] [address], [place] [id number] Jul, [facility] [address] [id number] [address] [place] [address], [place] [id number] Jul, [facility] [address] [id number] [address] [place] [address], [place] [id number] Jul, [facility] [address] [id number] [address] [place] [address], [place] [id number] Jul, [facility] [address] [id number] [address] [place] [address], [place] [id number] Jul, [facility] [address] [id number] [address] [place] [address], [place] [id number] 25 Jun, 2012 [facility] [address] [id number] [address] [place] [address], [place] [id number] 25 Sep, 2012 [facility] [address] [id number] [address] [place] [address], [place] [id number] 19 Sep, 2012 [facility] [address] [id number] [address] [place] [address], [place] [id number] 18 Sep, 2012 [facility] [address] [id number] [address] [place] [address], [place] [id number] 16 Jun, 2013 [facility] [address] [id number] [address] [place] [address], [place] [id number] 12 Jun, 2013 [facility] [address] [id number] [address] [place] [address], [place] [id number] Jun, [facility] [address] [id number] [address] [place] [address], [place] [address] May, [facility] [address] [id number] [address] [place] [address], [place] [id number] May, [facility] [address] [id number] [address] [place] [address], [place] [address] Apr, [facility] [address] [id number] [address] [place] [address], [place] [id number] Apr, [facility] [address] [id number] [address] [place] [address], [place] [address] Apr, [facility] [address] [id number] [address] [place] [address], [place] [id number] Mar, [facility] [address] [id number] [address] [place] [address], [place] [id number] Mar, [facility] [address] [id number] [address] [place] [address], [place] [id number] February, [facility] [address] [id number] [address] [place] [address], [place] [address] February, [facility] [address] [id number] [address] [place] [address], [place] [id number] February, [facility] [address] [id number] [address] [place] [address], [place] [address] February, [facility] [address] [id number] [address] [place] [address], [place] [address] Jan, [facility] [address] [id number] [address] [place] [address], [place] [address] Jan, [facility] [address] [id number] [address] [place] [id number] 16 Jan, 2013 [facility] [address] [id number] [address] [place] [address], [place] [id number] 29 Dec, 2012 [facility] [address] [id number] [address] [place] [address], [place] [address] Dec, [facility] [address] [id number] [address] [place] [address], [place] [address] Dec, [facility] [address] [id number] [address] [place] [address], [place] [id number] 08 Dec, 2012 [facility] [address] [id number] [address] [place] [address], [place] [address] Nov, [facility] [address] [id number] [address] [place] [address], [place] [address] Nov, [facility] [address] [id number] [address] [place] [address], [place] [id number] Oct, [facility] [address] [id number] [address] [place] [address], [place] [address] Oct, [facility] [address] [id number] [address] [place] [address], [place] [address] Oct, [facility] [address] [id number] [address] [place] [address], [place] [id number] Oct, [facility] [address] [id number] [address] [place] [address], [place] [address] Aug, [facility] [address] [id number] [address] [place] [address], [place] [address] Aug, [facility] [address] [id number] [address] [place] [address], [place] [id number] Jun, [facility] [address] [id number] [address] [place] [address], [place] [id number] May, [facility] [address] [id number] [address] [place] [address], [place] [address] May, [facility] [address] [id number] [address] [place] [address], [place] [id number] Apr, [facility] [address] [id number] [address] [place] [address], [place] [address] Apr, [facility] [address] [id number] [address] [place] [address], [place] [id number] Apr, [facility] [address] [id number] [address] [place] [address], [place] [address] Mar, [facility] [address] [id number] [address] [place] [address], [place] [address] Mar, [facility] [address] [id number] [address] [place] [address], [place] [id number] Mar, [facility] [address] [id number] [address] [place] [address], [place] [id number] Mar, [facility] [address] [id number] [address] [place] [address], [place] [address] Mar, [facility] [address] [id number] [address] [place] [address], [place] [id number] February, [facility] [address] [id number] [address] [place] [address], [place] [id number] February, [facility] [address] [id number] [address] [place] [address], [place] [address] February, [facility] [address] [id number] [address] [place] [address], [place] [address] February, [facility] [address] [id number] [address] [place] [address], [place] [address] February, [facility] [address] [id number] [address] [place] [address], [place] [address] February, [facility] [address] [id number] [address] [place] [address], [place] [address] February, [facility] [address] [id number] [address] [place] [address], [place] [id number] 25 Jan, 2012 [facility] [address] [id number] [address] [place] [address], [place] [address] 18 Jan, 2012 [facility] [address] [id number] [address] [place] [address], [place] [id number] 17 Jan, 2012 [facility] [address] [id number] [address] [place] [address], [place] [id number] 13 Jan, 2012 [facility] [address] [id number] [address] [place] [address], [place] [id number] 10 Jan, 2012 [facility] [address] [id number] [address] [place] [address], [place] [id number] 04 Jan, 2012 [facility] [address] [id number] [address] [place] [address], [place] [id number] 30 Dec, 2011 [facility] [address] [id number] [address] [place] [address], [place] [id number] 24 Dec, 2011 [facility] [address] [id number] [address] [place] [address], [place] [address] 20 Dec, 2011 [facility] [address] [id number] [address] [place] [address], [place] [address] 13 Dec, 2011 [facility] [address] [id number] [address] [place] [address], [place] [id number] 06 Dec, 2011 [facility] [address] [id number] [address] [place] [address], [place] [id number] 28 Nov, 2011 [facility] [address] [id number] [address] [place] [address], [place] [address] 27 Nov, 2011 [facility] [address] [id number] [address] [place] [address], [place] [id number] 25 Nov, 2011 [facility] [address] [id number] [address] [place] [address], [place] [id number] 14 Nov, 2011 [facility] [address] [id number] [address] [place] [address], [place] [id number] 10 Nov, 2011 [facility] [address] [id number] [address] [place] [address], [place] [id number] Nov, [facility] [address] [id number] [address] [place] [address], [place] [address] Oct, [facility] [address] [id number] [address] [place] [address], [place] [address] Oct, [facility] [address] [id number] [address] [place] [address], [place] [address] Oct, [facility] [address] [id number] [address] [place] [address], [place] [id number] Oct, [facility] [address] [id number] [address] [place] [address], [place] [id number] Oct, [facility] [address] [id number] [address] [place] [address], [place] [address] Sep, [facility] [address] [id number] [address] [place] [address], [place] [id number] Sep, [facility] [address] [id number] [address] [place] [address], [place] [address] Sep, [facility] [address] [id number] [address] [place] [address], [place] [id number] 14 Sep, 2011 [facility] [address] [id number] [address] [place] [address], [place] [id number] 14 Sep, 2011 [facility] [address] [id number] [address] [place] [address], [place] [id number] 13 Sep, 2011 [facility] [address] [id number] [address] [place] [address], [place] [id number] 12 Sep, 2011 [facility] [address] [id number] [address] [place] [address], [place] [id number] 09 Sep, 2011 [facility] [address] [id number] [address] [place] [address], [place] [id number] 05 Sep, 2011 [facility] [address] [id number] [address] [place] [address] [address] Aug, [facility] [address] [id number] [address] [place] [address], [place] [address] Aug, [facility] [address] [id number] [address] [place] [address], [place] [id number] Aug, [facility] [address] [id number] [address] [place] [address], [place] [address] Aug, [facility] [address] [id number] [address] [place] [address], [place] [address] Aug, [facility] [address] [id number] [address] [place] [address], [place] [address] Aug, [facility] [address] [id number] [address] [place] [address], [place] [address] Aug, [facility] [address] [id number] [address] [place] [address], [place] [address] Aug, [facility] [address] [id number] [address] [place] [address], [place] [address] Aug, [facility] [address] [id number] [address] [place] [address], [place] [address] Aug, [facility] [address] [id number] [address] [place] [address], [place] [address] Aug, [facility] [address] [id number] [address] [place] [id number] Aug, [facility] [address] [id number] [address] [place] [id number] Jul, [facility] [address] [id number] [address] [place] [address], [place] [id number] Jul, [facility] [address] [id number] [address] [place] [id number] Jul, [facility] [address] [id number] [address] [place] [id number] Jul, [facility] [address] [id number] [address] [place] [id number] Jul, [facility] [address] [id number] [address] [place] [id number] Jul, [facility] [address] [id number] [address] [place] [id number] Jul, [facility] [address] [id number] [address] [place] [id number] Jul, [facility] [address] [id number] [address] [place] [id number] Jul, [facility] [address] [id number] [address] [place] [id number] Jul, [facility] [address] [id number] [address] [place] [id number] Nov, [facility] [address] [id number] [address] [place] [id number] Aug, [facility] [address] [id number] [address] [place] [id number] Aug, [facility] [address] [id number] [address] [place] [id number] Aug, [facility] [address] [id number] [address] [place] [id number] Aug, [facility] [address] [id number] [address] [place] [id number] Jul, IMMUNIZATIONS No Known Immunizations SOCIAL HISTORY [...] by hanging 2015 Hospitalization History [facility] 01/30/2018-02/10/20 08 Hospitalization History [facility] 05/04/18-
--- OUTSIDE RECORDS SUMMARY | 2020-04-04 02:00 | XMS REPORT ---
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 Active 74304064 Problem Generalized anxiety disorder 300.02 A ctive 00934535 Problem Obsessive-compulsive disorders 300.3 Active 625092079 Problem Catatonic schizophrenia, 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 981456558 Problem Disorganized schizophrenia, 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 91689081 Problem Paranoid schizophrenia F20.0 Active 32694028 Problem Borderline personality disorder F60.3 Active 08685143 Problem Paranoid schizophrenia, unspecified condition 295.30 Active 53359383 Problem Schizoaffective disorder, depressive type F25.1 Active 95729882 Problem Bipolar disorder, unspecified 296.80 Active 80206914 Problem Schizoaffective disorder, unspecified F25.9 Active 74844040 Problem Attention deficit hyperactivity disorder (ADHD), inattentive type, 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 14462160 Problem Posttraumatic stress disorder F43.10 Active 08957147 Problem High risk medication use Z79.899 Activ e [id number] ALLERGIES No Information ENCOUNTERS Encounter Location Date Diagnosis [facility], [place] [address] [facility] [id number] [address] [place] [id number] Jun, [facility] [place] [address] [facility] [id number] [address] [place] [phone] Apr, Paranoid schizophrenia F20.0 ; Posttraumatic stress disorder F43.10 ; Attention deficit hyperactivity disorder (ADHD), inattentive type, 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 and Borderline personality disorder F60.3 [facility] [place] [address] [facility] [id number] [address] [place] [id number] Apr, Paranoid schizophrenia F20.0 [facility] [place] [address] [facility] [id number] [address] [place] [id number] Apr, Paranoid schizophrenia F20.0 ; Posttraumatic stress disorder F43.10 ; Attention deficit hyperactivity disorder (ADHD), inattentive type, 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 and Borderline personality disorder F60.3 [facility] [place] [address] [facility] [id number] [address] [place] [phone] Mar, Paranoid schizophrenia F20.0 [facility] [place] [address] [id number] [address] [place] [id number] Mar, Paranoid schizophrenia F20.0 ; Posttraumatic stress disorder F43.10 ; Attention deficit hyperactivity disorder (ADHD), inattentive type, 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 and Borderline personality disorder F60.3 [facility] [place] [address] [facility] [id number] [address] [place] [phone] February, Paranoid schizophrenia F20.0 [facility] [place] [address] [facility] [id number] [address] [place] [phone] Jan, Paranoid schizophrenia F20.0 ; Posttraumatic stress disorder F43.10 ; Attention deficit hyperactivity disorder (ADHD), inattentive type, 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 and Borderline personality disorder F60.3 [facility] [place] [address] [facility] [id number] [address] [place] [phone] Dec, Paranoid schizophrenia F20.0 ; Posttraumatic stress disorder F43.10 ; Attention deficit hyperactivity disorder (ADHD), inattentive type, 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 and Borderline personality disorder F60.3 [facility] [place] [address] [id number] [address] [place] [id number] Dec, Paranoid schizophrenia F20.0 ; Posttraumatic stress disorder F43.10 ; Attention deficit hyperactivity disorder (ADHD), inattentive type, 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 and Borderline personality disorder F60.3 [facility] [place] [address] [facility] [id number] [address] [place] [phone] Oct, Paranoid schizophrenia F20.0 ; Posttraumatic stress disorder F43.10 ; Attention deficit hyperactivity disorder (ADHD), inattentive type, 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 and Borderline personality disorder F60.3 [facility] [place] [address] [id number] [address] [place] [id number] Oct, Paranoid schizophrenia F20.0 ; Posttraumatic stress disorder F43.10 ; Attention deficit hyperactivity disorder (ADHD), inattentive type, 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 and Borderline personality disorder F60.3 [facility] [place] [address] [id number] [address] [place] [id number] Aug, [facility] [place] [address] [id number] [address] [place] [phone] Aug, Paranoid schizophrenia F20.0 ; Posttraumatic stress disorder F43.10 ; Attention deficit hyperactivity disorder (ADHD), inattentive type, 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 and Borderline personality disorder F60.3 [facility] [address] [id number] [address] [place] [id number] Jul, Dry skin dermatitis L85.3 [facility] [place] [address] [id number] [address] [place] [phone] Jul, [facility] [place] [address] [facility] [id number] [address] [place] [id number] Jul, Paranoid schizophrenia F20.0 [facility] [place] [address] [id number] [address] [place] [phone] May, Paranoid schizophrenia F20.0 ; Posttraumatic stress disorder F43.10 ; Attention deficit hyperactivity disorder (ADHD), inattentive type, 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 and Borderline personality disorder F60.3 [facility] [place] [address] [id number] [address] [place] [phone] May, [facility] [place] [address] [id number] [address] [place] [phone] May, Paranoid schizophrenia F20.0 [facility] [place] [address] [id number] [address] [place] [phone] May, Paranoid schizophrenia F20.0 ; Posttraumatic stress disorder F43.10 ; Attention deficit hyperactivity disorder (ADHD), inattentive type, 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 and Borderline personality disorder F60.3 [facility] [place] [address] [id number] [address] [place] [phone] Apr, [facility] [place] [address] [id number] [address] [place] [id number] Apr, Paranoid schizophrenia F20.0 ; Posttraumatic stress disorder F43.10 ; Attention deficit hyperactivity disorder (ADHD), inattentive type, 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 and Borderline personality disorder F60.3 [facility] [place] [address] [id number] [address] [place] [id number] Apr, [facility] [place] [address] [id number] [address] [place] [id number] Apr, Schizoaffective disorder, de pressive type F25.1 and Borderline personality disorder F60.3 [facility] [place] [address] [id number] [address] [place] [phone] Apr, Paranoid schizophrenia F20.0 ; Posttraumatic stress disorder F43.10 ; Attention deficit hyperactivity disorder (ADHD), inattentive type, 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 and Borderline personality disorder F60.3 [facility] [place] [address] [id number] [address] [place] [id number] Apr, [facility] [place] [address] [id number] [address] [place] [phone] Apr, Paranoid schizophrenia F20.0 ; Posttraumatic stress disorder F43.10 ; Attention deficit hyperactivity disorder (ADHD), inattentive type, 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 and Borderline personality disorder F60.3 [facility] [place] [address] [id number] [address] [place] [phone] Apr, [facility] [place] [address] [id number] [address] [place] [phone] Mar, Paranoid schizophrenia F20.0 [facility] [place] [address] [id number] [address] [place] [id number] Mar, [facility] [place] [address] [id number] [address] [place] [id number] Mar, Paranoid schizophrenia F20.0 ; Posttraumatic stress disorder F43.10 ; Attention deficit hyperactivity disorder (ADHD), inattentive type, 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 and Borderline personality disorder F60.3 [facility] [place] [address] [id number] [address] [place] [phone] February, Paranoid schizophrenia F20.0 [facility] [place] [address] [id number] [address] [place] [phone] February, Paranoid schizophrenia F20.0 ; Posttraumatic stress disorder F43.10 ; Attention deficit hyperactivity disorder (ADHD), inattentive type, 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 and Borderline personality disorder F60.3 [facility] [place] [address] [facility] [id number] [address] [place] [phone] February, Paranoid schizophrenia F20.0 ; Posttraumatic stress disorder F43.10 ; Attention deficit hyperactivity disorder (ADHD), inattentive type, 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 and Borderline personality disorder F60.3 [facility] [place] [address] [id number] [address] [place] [id number] February, [facility] [place] [address] [facility] [id number] [address] [place] [phone] February, Paranoid schizophrenia F20.0 [facility] [place] [address] [facility] [id number] [address] [place] [phone] February, Paranoid schizophrenia F20.0 [facility] [place] [address] [id number] [address] [place] [id number] February, Paranoid schizophrenia F20.0 ; Posttraumatic stress disorder F43.10 ; Attention deficit hyperactivity disorder (ADHD), inattentive type, 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 and Borderline personality disorder F60.3 [facility] [place] [address] [id number] [address] [place] [phone] Jan, Paranoid schizophrenia F20.0 ; Posttraumatic stress disorder F43.10 ; Attention deficit hyperactivity disorder (ADHD), inattentive type, 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 and Borderline personality disorder F60.3 [facility] [place] [address] [id number] [address] [place] [phone] Jan, Paranoid schizophrenia F20.0 [facility] [place] [address] [id number] [address] [place] [id number] Jan, Paranoid schizophrenia F20.0 [facility] [place] [address] [id number] [address] [place] [phone] Jan, Paranoid schizophrenia F20.0 ; Posttraumatic stress disorder F43.10 ; Attention deficit hyperactivity disorder (ADHD), inattentive type, 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 and Borderline personality disorder F60.3 [facility] [place] [address] [id number] [address] [place] [phone] Dec, [facility] [place] [address] [id number] [address] [place] [id number] Nov, Paranoid schizophrenia F20.0 ; Posttraumatic stress disorder F43.10 ; Attention deficit hyperactivity disorder (ADHD), inattentive type, 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 and Borderline personality disorder F60.3 [facility] [place] [address] [id number] [address] [place] [phone] Nov, [facility] [place] [address] [id number] [address] [place] [phone] Oct, Paranoid schizophrenia F20.0 [facility] [place] [address] [id number] [address] [place] [id number] Oct, Paranoid schizophrenia F20.0 ; Posttraumatic stress disorder F43.10 ; Attention deficit hyperactivity disorder (ADHD), inattentive type, 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 ; Borderline personality disorder F60.3 and 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 [facility] [place] [address] [id number] [address] [place] [phone] Oct, [facility] [place] [address] [id number] [address] [place] [phone] Oct, [facility] [place] [address] [id number] [address] [place] [id number] Sep, [facility] [place] [address] [facility] [id number] [address] [place] [id number] Sep, Paranoid schizophrenia F20.0 ; Posttraumatic stress disorder F43.10 ; Attention deficit hyperactivity disorder (ADHD), inattentive type, 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 and Borderline personality disorder F60.3 [facility] [place] [address] [id number] [address] [place] [phone] Sep, Paranoid schizophrenia F20.0 [facility] [place] [address] [id number] [address] [place] [phone] Aug, Paranoid schizophrenia F20.0 ; Posttraumatic stress disorder F43.10 ; Attention deficit hyperactivity disorder (ADHD), inattentive type, 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 and Borderline personality disorder F60.3 [facility] [place] [address] [facility] [id number] [address] [place] [id number] Aug, Paranoid schizophrenia F20.0 ; Posttraumatic stress disorder F43.10 ; Attention deficit hyperactivity disorder (ADHD), inattentive type, 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 and Borderline personality disorder F60.3 [facility] [place] [address] [facility] [id number] [address] [place] [id number] Aug, [facility] [place] [address] [id number] [address] [place] [id number] Jul, Paranoid schizophrenia F20.0 ; Posttraumatic stress disorder F43.10 ; Attention deficit hyperactivity disorder (ADHD), inattentive type, 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 and Borderline personality disorder F60.3 [facility] [place] [address] [facility] [id number] [address] [place] [id number] Jul, Paranoid schizophrenia F20.0 [facility] [place] [address] [facility] [id number] [address] [place] [id number] Jul, Paranoid schizophrenia F20.0 ; Posttraumatic stress disorder F43.10 ; Attention deficit hyperactivity disorder (ADHD), inattentive type, 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 and Borderline personality disorder F60.3 [facility] [place] [address] [id number] [address] [place] [id number] Jun, Paranoid schizophrenia F20.0 ; Posttraumatic stress disorder F43.10 ; Attention deficit hyperactivity disorder (ADHD), inattentive type, 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 and Borderline personality disorder F60.3 [facility] [place] [address] [id number] [address] [place] [id number] May, Other vermin exterminator (current) dr ug therapy Z79.899 [facility] [place] [address] [id number] [address] [place] [id number] May, [facility] [place] [address] [id number] [address] [place] [id number] May, [facility] [place] [address] [id number] [address] [place] [id number] May, Attention deficit hyperactiv ity disorder (ADHD), inattentive type, mild F90.0 [facility] [place] [address] [id number] [address] [place] [phone] May, [facility] [place] [address] [id number] [address] [place] [id number] May, Attention deficit hyperactiv ity disorder (ADHD), inattentive type, mild F90.0 [facility] [place] [address] [id number] [address] [place] [id number] May, Paranoid schizophrenia F20.0 ; Posttraumatic stress disorder F43.10 ; Attention deficit hyperactivity disorder (ADHD), inattentive type, 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 and 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 [facility] [place] [address] [id number] [address] [place] [phone] Apr, Paranoid schizophrenia F20.0 [facility] [place] [address] [id number] [address] [place] [phone] Apr, Paranoid schizophrenia F20.0 ; Posttraumatic stress disorder F43.10 and Attention deficit hyperactivity disorder (ADHD), inattentive type, 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 [facility] [place] [address] [id number] [address] [place] [phone] February, [facility] [place] [address] [id number] [address] [place] [id number] February, Paranoid schizophrenia F20.0 ; Posttraumatic stress disorder F43.10 and Attention deficit hyperactivity disorder (ADHD), inattentive type, 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 [facility] [place] [address] [id number] [address] [place] [phone] February, Paranoid schizophrenia F20.0 ; Posttraumatic stress disorder F43.10 and Attention deficit hyperactivity disorder (ADHD), inattentive type, 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 [facility] [place] [address] [id number] [address] [place] [phone] Jan, Paranoid schizophrenia F20.0 ; Posttraumatic stress disorder F43.10 and Attention deficit hyperactivity disorder (ADHD), inattentive type, 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 [facility] [address] [id number] [address] [place] [id number] Dec, Dental examination Z01.20 [facility] [address] [id number] [address] [place] [address] [id number] Nov, Dental examination Z01.20 [facility] [address] [id number] [address] [place] [address] [id number] Nov, Dental examination Z01.20 [facility] [address] [id number] [address] [place] [address] [id number] Nov, Dental caries K02.9 [facility] [place] [address] [id number] [address] [place] [id number] 13 Nov, 2016 High risk medication use Z79 .899 [facility] [place] [address] [id number] [address] [place] [phone] Nov, Paranoid schizophrenia F20.0 ; Posttraumatic stress disorder F43.10 ; Attention deficit hyperactivity disorder (ADHD), inattentive type, 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 and Borderline personality disorder in adult F60.3 [facility] [address] [id number] [address] [place] [address] [id number] 18 Oct, 2016 Dental caries K02.9 [facility] [place] [address] [id number] [address] [place] [phone] 05 Sep, 2016 Paranoid schizophrenia F20.0 ; Posttraumatic stress disorder F43.10 and Attention deficit hyperactivity disorder (ADHD), inattentive type, 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 [facility] [place] [address] [id number] [address] [place] [phone] 16 Aug, 2016 Paranoid schizophrenia F20.0 ; Posttraumatic stress disorder F43.10 and Attention deficit hyperactivity disorder (ADHD), inattentive type, 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 [facility] [address] [id number] [address] [place] [phone] Aug, Strep throat J02.0 and Cough R05 [facility] [place] [address] [id number] [address] [place] [phone] Aug, [facility] [place] [address] [id number] [address] [place] [id number] 24 Jul, 2016 Paranoid schizophrenia F20.0 ; Posttraumatic stress disorder F43.10 and Attention deficit hyperactivity disorder (ADHD), inattentive type, 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 [facility] [place] [address] [id number] [address] [place] [phone] Jul, [facility] [place] [address] [id number] [address] [place] [id number] 28 Jun, 2016 Paranoid schizophrenia F20.0 ; Posttraumatic stress disorder F43.10 and Attention deficit hyperactivity disorder (ADHD), inattentive type, 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 [facility] [address] [id number] [address] [place] [id number] 22 Jun, 2016 Dental examination Z01.20 [facility] [place] [address] [id number] [address] [place] [phone] 12 Jun, 2016 [facility] [place] [address] [id number] [address] [place] [phone] May, Paranoid schizophrenia F20.0 [facility] [place] [address] [id number] [address] [place] [phone] May, Paranoid schizophrenia F20.0 ; Posttraumatic stress disorder F43.10 and Attention deficit hyperactivity disorder (ADHD), inattentive type, 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 [facility] [place] [address] [id number] [address] [place] [phone] May, [facility] [place] [address] [id number] [address] [place] [phone] May, Paranoid schizophrenia F20.0 [facility] [place] [address] [id number] [address] [place] [phone] May, [facility], [place] [address] [id number] [address] [place] [id number] May, Paranoid schizophrenia F20.0 [facility], [place] [address] [id number] [address] [place] [id number] May, Schizoaffective disorder, un specified F25.9 [facility], [place] [address] [id number] [address] [place] [id number] May, Schizoaffective disorder, un specified F25.9 [facility], [place] [address] [id number] [address] [place] [id number] May, [facility], [place] [address] [id number] [address] [place] [id number] May, Paranoid schizophrenia F20.0 [facility] [facility] [place] [address] [id number] [address] [place] [id number] May, Paranoid schizophrenia F20.0 ; Posttraumatic stress disorder F43.10 and Attention deficit hyperactivity disorder (ADHD), inattentive type, 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 [facility] [place] [address] [id number] [address] [place] [id number] Mar, [facility] [place] [address] [id number] [address] [place] [id number] Mar, Paranoid schizophrenia F20.0 ; Posttraumatic stress disorder F43.10 and Attention deficit hyperactivity disorder (ADHD), inattentive type, 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 [facility] [place] [address] [id number] [address] [place] [id number] Mar, Paranoid schizophrenia F20.0 [facility] [place] [address] [id number] [address] [place] [id number] Mar, Paranoid schizophrenia F20.0 ; Attention deficit hyperactivity disorder (ADHD), inattentive type, 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 and Posttraumatic stress disorder F43.10 [facility] [place] [address] [id number] [address] [place] [id number] Mar, [facility] [place] [address] [id number] [address] [place] [id number] Mar, Paranoid schizophrenia F20.0 ; Posttraumatic stress disorder F43.10 and Attention deficit hyperactivity disorder (ADHD), inattentive type, 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 [facility] [place] [address] [id number] [address] [place] [id number] February, [facility] [place] [address] [id number] [address] [place] [id number] February, [facility] [place] [address] [id number] [address] [place] [id number] February, [facility] [place] [address] [id number] [address] [place] [phone] February, [facility] [place] [address] [id number] [address] [place] [id number] Jan, Paranoid schizophrenia F20.0 [facility] [address] [id number] [address] [place] [id number] Jan, Dental examination Z01.20 [facility] [address] [id number] [address] [place] [address] [id number] Jan, Dental caries K02.9 [facility] [address] [id number] [place] [id number] Jan, Dental examination Z01.20 [facility] [address] [id number] [place] [id number] Dec, Encounter for dental examina tion Z01.20 [facility] [place] [address] [id number] [address] [place] [id number] Dec, Paranoid schizophrenia F20.0 [facility] [address] [id number] [address] [place] [id number] Dec, Dental examination Z01.20 [facility] [place] [address] [id number] [address] [place] [id number] Dec, [facility] [place] [address] [id number] [address] [place] [id number] Dec, Paranoid schizophrenia F20.0 ; Posttraumatic stress disorder F43.10 and Attention deficit hyperactivity disorder (ADHD), inattentive type, 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 [facility] [place] [address] [id number] [address] [place] [phone] Nov, Schizoaffective disorder, un specified F25.9 [facility] [place] [address] [id number] [address] [place] [id number] Oct, Paranoid schizophrenia F20.0 [facility] [place] [address] [id number] [address] [place] [id number] Oct, [facility] [place] [address] [id number] [address] [place] [id number] Sep, Paranoid schizophrenia F20.0 ; Posttraumatic stress disorder F43.10 and Attention deficit hyperactivity disorder (ADHD), inattentive type, 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 [facility] [place] [address] [id number] [address] [place] [phone] Sep, [facility] [place] [address] [id number] [address] [place] [id number] Sep, Paranoid schizophrenia F20.0 ; Posttraumatic stress disorder F43.10 and Attention deficit hyperactivity disorder (ADHD), inattentive type, 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 [facility] [place] [address] [id number] [address] [place] [id number] Aug, Paranoid schizophrenia F20.0 [facility] [place] [address] [id number] [address] [place] [phone] Aug, [facility] [place] [address] [facility] [id number] [address] [place] [id number] Aug, Posttraumatic stress disorde r F43.10 ; Paranoid schizophrenia F20.0 and Attention deficit hyperactivity disorder (ADHD), inattentive type, 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 [facility] [place] [address] [facility] [id number] [address] [place] [id number] Jul, Bipolar disorder, unspecifie d F31.9 [facility] [place] [address] [facility] [id number] [address] [place] [id number] Jul, [facility] [place] [address] [facility] [id number] [address] [place] [phone] Jun, [facility] [place] [address] [facility] [id number] [address] [place] [id number] Jun, Schizoaffective disorder, ch ronic 295.72 ; Posttraumatic stress disorder 309.81 and Attention deficit disorder of childhood without mention of hyperactivity 314.00 [facility] [place] [address] [facility] [id number] [address] [place] [id number] May, [facility] [place] [address] [id number] [address] [place] [id number] May, [facility] [place] [address] [facility] [id number] [address] [place] [id number] May, Schizoaffective disorder, ch ronic 295.72 ; Posttraumatic stress disorder 309.81 ; Attention deficit disorder of childhood without mention of hyperactivity 314.00 and Bipolar disorder, unspecified 296.80 [facility] [place] [address] [id number] [address] [place] [id number] Apr, Schizoaffective disorder, ch ronic 295.72 [facility] [place] [address] [id number] [address] [place] [id number] Apr, [facility] [place] [address] [id number] [address] [place] [id number] Apr, Schizoaffective disorder, ch ronic 295.72 ; Posttraumatic stress disorder 309.81 and Attention deficit disorder of childhood without mention of hyperactivity 314.00 [facility] [place] [address] [id number] [address] [place] [id number] Mar, Disorganized schizophrenia, 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 [facility] [place] [address] [id number] [address] [place] [id number] Mar, [facility] [place] [address] [id number] [address] [place] [id number] Mar, [facility] [place] [address] [facility] [id number] [address] [place] [phone] Mar, [facility] [place] [address] [id number] [address] [place] [id number] Mar, [facility] [place] [address] [facility] [id number] [address] [place] [id number] February, Schizoaffective disorder, ch ronic 295.72 [facility] [place] [address] [facility] [id number] [address] [place] [id number] February, [facility] [place] [address] [id number] [address] [place] [id number] February, Attention 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 ; Posttraumatic stress disorder 309.81 and Schizoaffective disorder, chronic 295.72 [facility] [place] [address] [id number] [address] [place] [id number] Jan, [facility] [place] [address] [id number] [address] [place] [phone] Jan, [facility] [address] [id number] [address] [place] [address], [place] [address] Jan, [facility] [address] [id number] [address] [place] [address], [place] [address] Dec, [facility] [address] [id number] [address] [place] [address], [place] [address] Dec, [facility] [address] [id number] [address] [place] [address], [place] [address] Dec, [facility] [address] [id number] [address] [place] [address], [place] [address] Dec, [facility] [address] [id number] [address] [place] [address], [place] [address] Dec, [facility] [address] [id number] [address] [place] [address], [place] [address] Dec, [facility] [address] [id number] [address] [place] [address], [place] [address] Dec, [facility] [address] [id number] [address] [place] [address], [place] [address] Dec, [facility] [address] [id number] [address] [place] [address], [place] [address] Nov, [facility] [address] [id number] [address] [place] [address], [place] [address] Nov, [facility] [address] [id number] [address] [place] [address], [place] [address] Nov, [facility] [address] [id number] [address] [place] [address], [place] [address] Nov, [facility] [address] [id number] [address] [place] [address], [place] [address] Nov, [facility] [address] [id number] [address] [place] [address], [place] [address] Nov, 2014 [facility] [address] [id number] [address] [place] [address], [place] [address] Nov, [facility] [address] [id number] [address] [place] [address], [place] [address] Nov, [facility] [address] [id number] [address] [place] [address], [place] [address] Nov, [facility] [address] [id number] [address] [place] [address], [place] [address] Nov, [facility] [address] [id number] [address] [place] [address], [place] [address] Oct, [facility] [address] [id number] [address] [place] [address], [place] [address] Oct, [facility] [address] [id number] [address] [place] [address], [place] [address] Oct, [facility] [address] [id number] [address] [place] [address], [place] [address] Oct, [facility] [address] [id number] [address] [place] [address], [place] [address] Oct, [facility] [address] [id number] [address] [place] [address], [place] [address] Oct, [facility] [address] [id number] [address] [place] [address], [place] [address] Oct, [facility] [address] [id number] [address] [place] [address], [place] [address] Sep, [facility] [address] [id number] [address] [place] [address], [place] [address] Sep, [facility] [address] [id number] [address] [place] [address], [place] [address] Sep, [facility] [address] [id number] [address] [place] [address], [place] [address] Sep, [facility] [address] [id number] [address] [place] [address], [place] [address] Aug, [facility] [address] [id number] [address] [place] [address], [place] [address] Aug, [facility] [address] [id number] [address] [place] [address], [place] [address] Aug, [facility] [address] [id number] [address] [place] [address], [place] [address] Aug, [facility] [address] [id number] [address] [place] [address], [place] [address] Aug, [facility] [address] [id number] [address] [place] [address], [place] [address] Aug, [facility] [address] [id number] [address] [place] [address], [place] [address] Jul, [facility] [address] [id number] [address] [place] [address], [place] [address] Jul, [facility] [address] [id number] [address] [place] [address], [place] [address] Jul, [facility] [address] [id number] [address] [place] [address], [place] [address] Jul, [facility] [address] [id number] [address] [place] [address], [place] [address] Jul, [facility] [address] [id number] [address] [place] [address], [place] [address] Jul, [facility] [address] [id number] [address] [place] [address], [place] [address] 27 Jun, 2014 [facility] [address] [id number] [address] [place] [address], [place] [address] 27 Jun, 2014 [facility] [address] [id number] [address] [place] [address], [place] [address] 26 Jun, 2014 [facility] [address] [id number] [address] [place] [address], [place] [address] 26 Jun, 2014 [facility] [address] [id number] [address] [place] [address], [place] [address] Jun, [facility] [address] [id number] [address] [place] [address], [place] [address] Jun, 2013 [facility] [address] [id number] [address] [place] [address], [place] [address] Jun, [facility] [address] [id number] [address] [place] [address], [place] [address] Jun, 2013 [facility] [address] [id number] [address] [place] [address], [place] [address] Jun, 2013 [facility] [address] [id number] [address] [place] [address], [place] [address] Jun, [facility] [address] [id number] [address] [place] [address], [place] [address] Jun, [facility] [address] [id number] [address] [place] [address], [place] [address] May, [facility] [address] [id number] [address] [place] [address], [place] [address] May, [facility] [address] [id number] [address] [place] [address], [place] [address] May, [facility] [address] [id number] [address] [place] [address], [place] [address] May, [facility] [address] [id number] [address] [place] [address], [place] [address] May, [facility] [address] [id number] [address] [place] [address], [place] [address] May, [facility] [address] [id number] [address] [place] [address], [place] [address] May, [facility] [address] [id number] [address] [place] [address], [place] [address] May, [facility] [address] [id number] [address] [place] [address], [place] [address] May, [facility] [address] [id number] [facility] [place] [address] May, [facility] [address] [id number] [facility] [place] [address] Apr, [facility] [address] [id number] [facility] [place] [address] Apr, [facility] [address] [id number] [address] [place] [address], [place] [address] Apr, [facility] [address] [id number] [address] [place] [address], [place] [address] Apr, [facility] [address] [id number] [address] [place] [address], [place] [address] Apr, [facility] [address] [id number] [address] [place] [address], [place] [address] Apr, [facility] [address] [id number] [address] [place] [address], [place] [address] Apr, [facility] [address] [id number] [address] [place] [address], [place] [address] Apr, [facility] [address] [id number] [address] [place] [address], [place] [address] Apr, [facility] [address] [id number] [address] [place] [address], [place] [address] Apr, [facility] [address] [id number] [address] [place] [address], [place] [address] Mar, [facility] [address] [id number] [address] [place] [address], [place] [address] Mar, [facility] [address] [id number] [address] [place] [address], [place] [address] Mar, [facility] [address] [id number] [address] [place] [address], [place] [address] Mar, [facility] [address] [id number] [address] [place] [address], [place] [address] Mar, [facility] [address] [id number] [address] [place] [address], [place] [address] 18 Mar, 2014 [facility] [address] [id number] [address] [place] [address], [place] [address] 18 Mar, 2014 [facility] [address] [id number] [address] [place] [address], [place] [address] 16 Mar, 2014 [facility] [address] [id number] [address] [place] [address], [place] [address] 16 Mar, 2014 [facility] [address] [id number] [address] [place] [address], [place] [address] Mar, [facility] [address] [id number] [address] [place] [address], [place] [address] Mar, [facility] [address] [id number] [address] [place] [address], [place] [address] Mar, [facility] [address] [id number] [address] [place] [address], [place] [address] Mar, [facility] [address] [id number] [address] [place] [address], [place] [address] Mar, [facility] [address] [id number] [address] [place] [address], [place] [address] Mar, [facility] [address] [id number] [address] [place] [address], [place] [address] Mar, [facility] [address] [id number] [address] [place] [id number] Mar, [facility] [address] [id number] [address] [place] [address], [place] [address] Mar, [facility] [address] [id number] [address] [place] [address], [place] [id number] 04 Mar, 2014 [facility] [address] [id number] [address] [place] [address], [place] [address] 04 Mar, 2014 [facility] [address] [id number] [address] [place] [address], [place] [address] February, [facility] [address] [id number] [address] [place] [address], [place] [address] February, [facility] [address] [id number] [address] [place] [address], [place] [address] February, [facility] [address] [id number] [address] [place] [address], [place] [address] February, [facility] [address] [id number] [address] [place] [address], [place] [address] February, [facility] [address] [id number] [address] [place] [address], [place] [address] February, [facility] [address] [id number] [address] [place] [address], [place] [address] February, [facility] [address] [id number] [address] [place] [address], [place] [address] February, [facility] [address] [id number] [address] [place] [address], [place] [address] February, [facility] [address] [id number] [address] [place] [address], [place] [address] February, [facility] [address] [id number] [address] [place] [address], [place] [address] February, [facility] [address] [id number] [address] [place] [address], [place] [address] February, [facility] [address] [id number] [address] [place] [address], [place] [address] February, [facility] [address] [id number] [address] [place] [address], [place] [address] February, [facility] [address] [id number] [address] [place] [address], [place] [address] February, [facility] [address] [id number] [address] [place] [address], [place] [address] February, [facility] [address] [id number] [address] [place] [address], [place] [address] February, [facility] [address] [id number] [address] [place] [address], [place] [address] February, [facility] [address] [id number] [address] [place] [address], [place] [id number] February, [facility] [address] [id number] [address] [place] [address], [place] [address] February, [facility] [address] [id number] [address] [place] [address], [place] [address] February, [facility] [address] [id number] [address] [place] [address], [place] [address] Jan, [facility] [address] [id number] [address] [place] [address], [place] [address] Jan, [facility] [address] [id number] [address] [place] [address], [place] [address] Jan, [facility] [address] [id number] [address] [place] [address], [place] [address] Jan, [facility] [address] [id number] [address] [place] [address], [place] [address] Jan, [facility] [address] [id number] [address] [place] [address], [place] [id number] Jan, [facility] [address] [id number] [address] [place] [address], [place] [address] Jan, [facility] [address] [id number] [address] [place] [address], [place] [address] Jan, [facility] [address] [address] [id number] [address] [place] [address], [place] [address] Dec, [facility] [address] [id number] [address] [place] [address], [place] [address] Dec, [facility] [address] [id number] [address] [place] [address], [place] [address] 20 Dec, 2013 [facility] [address] [id number] [facility] [place] [address] 19 Dec, 2013 [facility] [address] [id number] [address] [place] [address], [place] [address] 19 Dec, 2013 [facility] [address] [id number] [address] [place] [address], [place] [address] 15 Dec, 2013 [facility] [address] [id number] [address] [place] [address], [place] [address] 15 Dec, 2013 [facility] [address] [id number] [address] [place] [address], [place] [address] 11 Dec, 2013 [facility] [address] [id number] [address] [place] [address], [place] [address] 10 Dec, 2013 [facility] [address] [id number] [address] [place] [address], [place] [address] 10 Dec, 2013 [facility] [address] [id number] [address] [place] [address], [place] [address] 18 Nov, 2013 [facility] [address] [id number] [address] [place] [address], [place] [address] 17 Nov, 2013 [facility] [address] [id number] [address] [place] [address], [place] [address] 17 Nov, 2013 [facility] [address] [id number] [address] [place] [address], [place] [address] 05 Nov, 2013 [facility] [address] [id number] [address] [place] [address], [place] [address] Nov, [facility] [address] [id number] [address] [place] [address], [place] [address] Oct, [facility] [address] [id number] [address] [place] [address], [place] [address] Oct, [facility] [address] [id number] [address] [place] [address], [place] [address] 16 Oct, 2013 [facility] [address] [id number] [address] [place] [address], [place] [address] Sep, [facility] [address] [id number] [address] [place] [address], [place] [address] Sep, [facility] [address] [id number] [address] [place] [address], [place] [address] Sep, [facility] [address] [id number] [address] [place] [address], [place] [address] Sep, [facility] [address] [id number] [address] [place] [address], [place] [address] Aug, [facility] [address] [id number] [address] [place] [address], [place] [address] Aug, [facility] [address] [id number] [address] [place] [address], [place] [address] Jul, [facility] [address] [id number] [address] [place] [address], [place] [address] Jul, [facility] [address] [id number] [address] [place] [address], [place] [address] Jul, [facility] [address] [id number] [address] [place] [address], [place] [address] Jul, [facility] [address] [id number] [address] [place] [address], [place] [address] Jul, [facility] [address] [id number] [address] [place] [address], [place] [address] 25 Jun, 2012 [facility] [address] [id number] [address] [place] [address], [place] [address] 25 Sep, 2012 [facility] [address] [id number] [address] [place] [address], [place] [address] 19 Sep, 2012 [facility] [address] [id number] [address] [place] [address], [place] [address] 18 Sep, 2012 [facility] [address] [id number] [address] [place] [address], [place] [address] 16 Jun, 2013 [facility] [address] [id number] [address] [place] [address], [place] [address] 12 Jun, 2013 [facility] [address] [id number] [address] [place] [address], [place] [address] Jun, [facility] [address] [id number] [address] [place] [address], [place] [address] May, [facility] [address] [id number] [address] [place] [address], [place] [address] May, [facility] [address] [id number] [address] [place] [address], [place] [address] Apr, [facility] [address] [id number] [address] [place] [address], [place] [address] Apr, [facility] [address] [id number] [address] [place] [address], [place] [address] Apr, [facility] [address] [id number] [address] [place] [address], [place] [address] Mar, [facility] [address] [id number] [address] [place] [address], [place] [address] Mar, [facility] [address] [id number] [address] [place] [address], [place] [address] February, [facility] [address] [id number] [address] [place] [address], [place] [address] February, [facility] [address] [id number] [address] [place] [address], [place] [address] February, [facility] [address] [id number] [address] [place] [address], [place] [address] February, [facility] [address] [id number] [address] [place] [address], [place] [address] Jan, [facility] [address] [id number] [address] [place] [address], [place] [address] Jan, [facility] [address] [id number] [address] [place] [id number] 16 Jan, 2013 [facility] [address] [id number] [address] [place] [address], [place] [address] 29 Dec, 2012 [facility] [address] [id number] [address] [place] [address], [place] [address] Dec, [facility] [address] [id number] [address] [place] [address], [place] [address] Dec, [facility] [address] [id number] [address] [place] [address], [place] [address] 08 Dec, 2012 [facility] [address] [id number] [address] [place] [address], [place] [address] Nov, [facility] [address] [id number] [address] [place] [address], [place] [address] Nov, [facility] [address] [id number] [address] [place] [address], [place] [address] Oct, [facility] [address] [id number] [address] [place] [address], [place] [address] Oct, [facility] [address] [id number] [address] [place] [address], [place] [address] Oct, [facility] [address] [id number] [address] [place] [address], [place] [address] Oct, [facility] [address] [id number] [address] [place] [address], [place] [address] Aug, [facility] [address] [id number] [address] [place] [address], [place] [address] Aug, [facility] [address] [id number] [address] [place] [address], [place] [address] Jun, [facility] [address] [id number] [address] [place] [address], [place] [address] May, [facility] [address] [id number] [address] [place] [address], [place] [address] May, [facility] [address] [id number] [address] [place] [address], [place] [address] Apr, [facility] [address] [id number] [address] [place] [address], [place] [address] Apr, [facility] [address] [id number] [address] [place] [address], [place] [address] Apr, [facility] [address] [id number] [address] [place] [address], [place] [address] Mar, [facility] [address] [id number] [address] [place] [address], [place] [address] Mar, [facility] [address] [id number] [address] [place] [address], [place] [address] Mar, [facility] [address] [id number] [address] [place] [address], [place] [address] Mar, [facility] [address] [id number] [address] [place] [address], [place] [address] Mar, [facility] [address] [id number] [address] [place] [address], [place] [address] February, [facility] [address] [id number] [address] [place] [address], [place] [address] February, [facility] [address] [id number] [address] [place] [address], [place] [address] February, [facility] [address] [id number] [address] [place] [address], [place] [address] February, [facility] [address] [id number] [address] [place] [address], [place] [address] February, [facility] [address] [id number] [address] [place] [address], [place] [address] February, [facility] [address] [id number] [address] [place] [address], [place] [address] February, [facility] [address] [id number] [address] [place] [address], [place] [address] 25 Jan, 2012 [facility] [address] [id number] [address] [place] [address], [place] [address] 18 Jan, 2012 [facility] [address] [id number] [address] [place] [address], [place] [address] 17 Jan, 2012 [facility] [address] [id number] [address] [place] [address], [place] [address] 13 Jan, 2012 [facility] [address] [id number] [address] [place] [address], [place] [address] 10 Jan, 2012 [facility] [address] [id number] [address] [place] [address], [place] [address] 04 Jan, 2012 [facility] [address] [id number] [address] [place] [address], [place] [address] 30 Dec, 2011 [facility] [address] [id number] [address] [place] [address], [place] [address] 24 Dec, 2011 [facility] [address] [id number] [address] [place] [address], [place] [address] 20 Dec, 2011 [facility] [address] [id number] [address] [place] [address], [place] [address] 13 Dec, 2011 [facility] [address] [id number] [address] [place] [address], [place] [address] 06 Dec, 2011 [facility] [address] [id number] [address] [place] [address], [place] [address] 28 Nov, 2011 [facility] [address] [id number] [address] [place] [address], [place] [address] 27 Nov, 2011 [facility] [address] [id number] [address] [place] [address], [place] [address] 25 Nov, 2011 [facility] [address] [id number] [address] [place] [address], [place] [address] 14 Nov, 2011 [facility] [address] [id number] [address] [place] [address], [place] [address] 10 Nov, 2011 [facility] [address] [id number] [address] [place] [address], [place] [address] Nov, [facility] [address] [id number] [address] [place] [address], [place] [address] Oct, [facility] [address] [id number] [address] [place] [address], [place] [address] Oct, [facility] [address] [id number] [address] [place] [address], [place] [address] Oct, [facility] [address] [id number] [address] [place] [address], [place] [address] Oct, [facility] [address] [id number] [address] [place] [address], [place] [address] Oct, [facility] [address] [id number] [address] [place] [address], [place] [address] Sep, [facility] [address] [id number] [address] [place] [address], [place] [address] Sep, [facility] [address] [id number] [address] [place] [address], [place] [address] Sep, [facility] [address] [id number] [address] [place] [address], [place] [address] 14 Sep, 2011 [facility] [address] [id number] [address] [place] [address], [place] [address] 14 Sep, 2011 [facility] [address] [id number] [address] [place] [address], [place] [address] 13 Sep, 2011 [facility] [address] [id number] [address] [place] [address], [place] [address] 12 Sep, 2011 [facility] [address] [id number] [address] [place] [address], [place] [address] 09 Sep, 2011 [facility] [address] [id number] [address] [place] [address], [place] [address] 05 Sep, 2011 [facility] [address] [id number] [address] [place] [address], [place] [address] Aug, [facility] [address] [id number] [address] [place] [address], [place] [address] Aug, [facility] [address] [id number] [address] [place] [address], [place] [address] Aug, [facility] [address] [id number] [address] [place] [address], [place] [address] Aug, [facility] [address] [id number] [address] [place] [address], [place] [address] Aug, [facility] [address] [id number] [address] [place] [address], [place] [address] Aug, [facility] [address] [id number] [address] [place] [address], [place] [address] Aug, [facility] [address] [id number] [address] [place] [address], [place] [address] Aug, [facility] [address] [id number] [address] [place] [address], [place] [address] Aug, [facility] [address] [id number] [address] [place] [address], [place] [address] Aug, [facility] [address] [id number] [address] [place] [address], [place] [address] Aug, [facility] [address] [id number] [address] [place] [address] Aug, [facility] [address] [id number] [address] [place] [address] Jul, [facility] [address] [id number] [address] [place] [address], [place] [address] Jul, [facility] [address] [id number] [address] [place] [id number] Jul, [facility] [address] [id number] [address] [place] [id number] Jul, [facility] [address] [id number] [address] [place] [id number] Jul, [facility] [place] [address] [id number] [address] [place] [id number] Jul, [facility] [place] [address] [id number] [address] [place] [id number] Jul, [facility] [place] [address] [id number] [address] [place] [id number] Jul, [facility] [place] [address] [id number] [address] [place] [id number] Jul, [facility] [place] [address] [id number] [address] [place] [id number] Jul, [facility] [place] [address] [id number] [address] [place] [id number] Nov, [facility] [place] [address] [id number] [address] [place] [id number] Aug, [facility] [place] [address] [id number] [address] [place] [id number] Aug, [facility] [place] [address] [id number] [address] [place] [id number] Aug, [facility] [place] [address] [id number] [address] [place] [id number] Aug, [facility] [place] [address] [id number] [address] [place] [id number] Jul, IMMUNIZATIONS No Known Immunizations SOCIAL HISTORY Never Assessed REASON FOR VISIT PLAN OF CARE VITAL SIGNS Height 65.75 in 2014-06-18 Weight 189.25 lbs 2014-06-18 Temperature 98.6 degrees Fahrenheit 2014-06-18 Heart Rate 88 bpm 2014-06-18 Respiratory Rate 24 2014-06-18 Blood pressure systolic 124 mmHg 2014-06-18 Blood pressure diastolic 100 mmHg 2014-06-18 MEDICATIONS Unknown Medications RESULTS No Results PROCEDURES No Known procedures INSTRUCTIONS MEDICATIONS ADMINISTERED No Known Medications MEDICAL (GENERAL) HISTORY Type Description Date Medical History diabetes Medical History thyroid Surgical History appendix Surgical History gallbladder Surgical History eyes Surgical History hip Surgical History MRI on back and pelvis 06/08 Hospitalization History surgeries Hospitalization History [facility] Suicide attempt by hanging 2015 Hospitalization History [facility] 01/30/2018-02/10/20 08 Hospitalization History [facility] 05/04/18-
--- OUTSIDE RECORDS SUMMARY | 2020-04-04 02:01 | XMS REPORT ---
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 Active 51504180 Problem Generalized anxiety disorder 300.02 A ctive 74213322 Problem Obsessive-compulsive disorders 300.3 Active 079200204 Problem Catatonic schizophrenia, 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 370123584 Problem Disorganized schizophrenia, 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 24180546 Problem Paranoid schizophrenia F20.0 Active 77412223 Problem Borderline personality disorder F60.3 Active 68950271 Problem Paranoid schizophrenia, unspecified condition 295.30 Active 40816099 Problem Schizoaffective disorder, depressive type F25.1 Active 30127718 Problem Bipolar disorder, unspecified 296.80 Active 66557006 Problem Schizoaffective disorder, unspecified F25.9 Active 98683510 Problem Attention deficit hyperactivity disorder (ADHD), inattentive type, 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 and Borderline personality disorder F60.3 [facility] [address] [facility] [id number] [address] [place] [phone] Apr, Paranoid schizophrenia F20.0 [facility] [address] [facility] [id number] [address] [place] [address] Apr, Paranoid schizophrenia F20.0 ; Posttraumatic stress disorder F43.10 ; Attention deficit hyperactivity disorder (ADHD), inattentive type, 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 and Borderline personality disorder F60.3 [facility] [address] [facility] [id number] [address] [place] [phone] Mar, Paranoid schizophrenia F20.0 [facility] [address] [id number] [address] [place] [address] Mar, Paranoid schizophrenia F20.0 ; Posttraumatic stress disorder F43.10 ; Attention deficit hyperactivity disorder (ADHD), inattentive type, 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 and Borderline personality disorder F60.3 [facility] [address] [facility] [id number] [address] [place] [address] February, Paranoid schizophrenia F20.0 [facility] [address] [facility] [id number] [address] [place] [address] Jan, Paranoid schizophrenia F20.0 ; Posttraumatic stress disorder F43.10 ; Attention deficit hyperactivity disorder (ADHD), inattentive type, 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 and Borderline personality disorder F60.3 [facility] [address] [facility] [id number] [address] [place] [address] Dec, Paranoid schizophrenia F20.0 ; Posttraumatic stress disorder F43.10 ; Attention deficit hyperactivity disorder (ADHD), inattentive type, 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 and Borderline personality disorder F60.3 [facility] [address] [id number] [address] [place] [address] Dec, Paranoid schizophrenia F20.0 ; Posttraumatic stress disorder F43.10 ; Attention deficit hyperactivity disorder (ADHD), inattentive type, 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 and Borderline personality disorder F60.3 [facility] [address] [facility] [id number] [address] [place] [address] Oct, Paranoid schizophrenia F20.0 ; Posttraumatic stress disorder F43.10 ; Attention deficit hyperactivity disorder (ADHD), inattentive type, 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 and Borderline personality disorder F60.3 [facility] [address] [id number] [address] [place] [address] Oct, Paranoid schizophrenia F20.0 ; Posttraumatic stress disorder F43.10 ; Attention deficit hyperactivity disorder (ADHD), inattentive type, 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 and Borderline personality disorder F60.3 [facility] [address] [id number] [address] [place] [address] Aug, [facility] [address] [id number] [address] [place] [address] Aug, Paranoid schizophrenia F20.0 ; Posttraumatic stress disorder F43.10 ; Attention deficit hyperactivity disorder (ADHD), inattentive type, 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 and Borderline personality disorder F60.3 [facility] [address] [id number] [address] [place] [address] Jul, Dry skin dermatitis L85.3 [facility] [address] [id number] [address] [place] [address] Jul, [facility] [address] [facility] [id number] [address] [place] [phone] Jul, Paranoid schizophrenia F20.0 [facility] [address] [id number] [address] [place] [address] May, Paranoid schizophrenia F20.0 ; Posttraumatic stress disorder F43.10 ; Attention deficit hyperactivity disorder (ADHD), inattentive type, 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 and Borderline personality disorder F60.3 [facility] [address] [id number] [address] [place] [address] May, [facility] [address] [id number] [address] [place] [address] May, Paranoid schizophrenia F20.0 [facility] [address] [id number] [address] [place] [address] May, Paranoid schizophrenia F20.0 ; Posttraumatic stress disorder F43.10 ; Attention deficit hyperactivity disorder (ADHD), inattentive type, 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 and Borderline personality disorder F60.3 [facility] [address] [id number] [address] [place] [address] Apr, [facility] [address] [id number] [address] [place] [address] Apr, Paranoid schizophrenia F20.0 ; Posttraumatic stress disorder F43.10 ; Attention deficit hyperactivity disorder (ADHD), inattentive type, 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 and Borderline personality disorder F60.3 [facility] [address] [id number] [address] [place] [phone] Apr, [facility] [address] [id number] [address] [place] [address] Apr, Schizoaffective disorder, de pressive type F25.1 and Borderline personality disorder F60.3 [facility] [address] [id number] [address] [place] [address] Apr, Paranoid schizophrenia F20.0 ; Posttraumatic stress disorder F43.10 ; Attention deficit hyperactivity disorder (ADHD), inattentive type, 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 and Borderline personality disorder F60.3 [facility] [address] [id number] [address] [place] [address] Apr, [facility] [address] [id number] [address] [place] [address] Apr, Paranoid schizophrenia F20.0 ; Posttraumatic stress disorder F43.10 ; Attention deficit hyperactivity disorder (ADHD), inattentive type, 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 and Borderline personality disorder F60.3 [facility] [address] [id number] [address] [place] [address] Apr, [facility] [address] [id number] [address] [place] [address] Mar, Paranoid schizophrenia F20.0 [facility] [address] [id number] [address] [place] [address] Mar, [facility] [address] [id number] [address] [place] [address] Mar, Paranoid schizophrenia F20.0 ; Posttraumatic stress disorder F43.10 ; Attention deficit hyperactivity disorder (ADHD), inattentive type, 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 and Borderline personality disorder F60.3 [facility] [address] [id number] [address] [place] [address] February, Paranoid schizophrenia F20.0 [facility] [address] [id number] [address] [place] [address] February, Paranoid schizophrenia F20.0 ; Posttraumatic stress disorder F43.10 ; Attention deficit hyperactivity disorder (ADHD), inattentive type, 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 and Borderline personality disorder F60.3 [facility] [address] [facility] [id number] [address] [place] [address] February, Paranoid schizophrenia F20.0 ; Posttraumatic stress disorder F43.10 ; Attention deficit hyperactivity disorder (ADHD), inattentive type, 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 and Borderline personality disorder F60.3 [facility] [address] [id number] [address] [place] [address] February, [facility] [address] [facility] [id number] [address] [place] [address] February, Paranoid schizophrenia F20.0 [facility] [address] [facility] [id number] [address] [place] [address] February, Paranoid schizophrenia F20.0 [facility] [address] [id number] [address] [place] [address] February, Paranoid schizophrenia F20.0 ; Posttraumatic stress disorder F43.10 ; Attention deficit hyperactivity disorder (ADHD), inattentive type, 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 and Borderline personality disorder F60.3 [facility] [address] [id number] [address] [place] [address] Jan, Paranoid schizophrenia F20.0 ; Posttraumatic stress disorder F43.10 ; Attention deficit hyperactivity disorder (ADHD), inattentive type, 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 and Borderline personality disorder F60.3 [facility] [address] [id number] [address] [place] [address] Jan, Paranoid schizophrenia F20.0 [facility] [address] [id number] [address] [place] [address] Jan, Paranoid schizophrenia F20.0 [facility] [address] [id number] [address] [place] [address] Jan, Paranoid schizophrenia F20.0 ; Posttraumatic stress disorder F43.10 ; Attention deficit hyperactivity disorder (ADHD), inattentive type, 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 and Borderline personality disorder F60.3 [facility] [address] [id number] [address] [place] [address] Dec, [facility] [address] [id number] [address] [place] [address] Nov, Paranoid schizophrenia F20.0 ; Posttraumatic stress disorder F43.10 ; Attention deficit hyperactivity disorder (ADHD), inattentive type, 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 and Borderline personality disorder F60.3 [facility] [address] [id number] [address] [place] [address] Nov, [facility] [address] [id number] [address] [place] [address] Oct, Paranoid schizophrenia F20.0 [facility] [address] [id number] [address] [place] [address] Oct, Paranoid schizophrenia F20.0 ; Posttraumatic stress disorder F43.10 ; Attention deficit hyperactivity disorder (ADHD), inattentive type, 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 ; Borderline personality disorder F60.3 and Other terminal carman (current) drug therapy Z79.899 [facility] [address] [id number] [address] [place] [address] Oct, [facility] [address] [id number] [address] [place] [address] Oct, [facility] [address] [id number] [address] [place] [address] Sep, [facility] [address] [facility] [id number] [address] [place] [address] Sep, Paranoid schizophrenia F20.0 ; Posttraumatic stress disorder F43.10 ; Attention deficit hyperactivity disorder (ADHD), inattentive type, 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 and Borderline personality disorder F60.3 [facility] [address] [id number] [address] [place] [address] Sep, Paranoid schizophrenia F20.0 [facility] [address] [id number] [address] [place] [address] Aug, Paranoid schizophrenia F20.0 ; Posttraumatic stress disorder F43.10 ; Attention deficit hyperactivity disorder (ADHD), inattentive type, 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 and Borderline personality disorder F60.3 [facility] [address] [facility] [id number] [address] [place] [address] Aug, Paranoid schizophrenia F20.0 ; Posttraumatic stress disorder F43.10 ; Attention deficit hyperactivity disorder (ADHD), inattentive type, 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 and Borderline personality disorder F60.3 [facility] [address] [facility] [id number] [address] [place] [address] Aug, [facility] [address] [id number] [address] [place] [phone] Jul, Paranoid schizophrenia F20.0 ; Posttraumatic stress disorder F43.10 ; Attention deficit hyperactivity disorder (ADHD), inattentive type, 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 and Borderline personality disorder F60.3 [facility] [address] [facility] [id number] [address] [place] [address] Jul, Paranoid schizophrenia F20.0 [facility] [address] [facility] [id number] [address] [place] [address] Jul, Paranoid schizophrenia F20.0 ; Posttraumatic stress disorder F43.10 ; Attention deficit hyperactivity disorder (ADHD), inattentive type, 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 and Borderline personality disorder F60.3 [facility] [address] [id number] [address] [place] [address] Jun, Paranoid schizophrenia F20.0 ; Posttraumatic stress disorder F43.10 ; Attention deficit hyperactivity disorder (ADHD), inattentive type, 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 and Borderline personality disorder F60.3 [facility] [address] [id number] [address] [place] [address] May, Other terminal carman (current) dr ug therapy Z79.899 [facility] [address] [id number] [address] [place] [address] May, [facility] [address] [id number] [address] [place] [address] May, [facility] [address] [id number] [address] [place] [address] May, Attention deficit hyperactiv ity disorder (ADHD), inattentive type, mild F90.0 [facility] [address] [id number] [address] [place] [address] May, [facility] [address] [id number] [address] [place] [address] May, Attention deficit hyperactiv ity disorder (ADHD), inattentive type, mild F90.0 [facility] [address] [id number] [address] [place] [address] May, Paranoid schizophrenia F20.0 ; Posttraumatic stress disorder F43.10 ; Attention deficit hyperactivity disorder (ADHD), inattentive type, 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 and Other terminal carman (current) drug therapy Z79.899 [facility] [address] [id number] [address] [place] [address] Apr, Paranoid schizophrenia F20.0 [facility] [address] [id number] [address] [place] [address] Apr, Paranoid schizophrenia F20.0 ; Posttraumatic stress disorder F43.10 and Attention deficit hyperactivity disorder (ADHD), inattentive type, 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 [facility] [address] [id number] [address] [place] [address] February, [facility] [address] [id number] [address] [place] [address] February, Paranoid schizophrenia F20.0 ; Posttraumatic stress disorder F43.10 and Attention deficit hyperactivity disorder (ADHD), inattentive type, 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 [facility] [address] [id number] [address] [place] [address] February, Paranoid schizophrenia F20.0 ; Posttraumatic stress disorder F43.10 and Attention deficit hyperactivity disorder (ADHD), inattentive type, 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 [facility] [address] [id number] [address] [place] [address] Jan, Paranoid schizophrenia F20.0 ; Posttraumatic stress disorder F43.10 and Attention deficit hyperactivity disorder (ADHD), inattentive type, 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 [facility] [address] [id number] [address] [place] [id number] Dec, Dental examination Z01.20 [facility] [address] [id number] [address] [place] [id number] Nov, Dental examination Z01.20 [facility] [address] [id number] [address] [place] [address] [id number] Nov, Dental examination Z01.20 [facility] [address] [id number] [address] [place] [id number] Nov, Dental caries K02.9 [facility] [address] [id number] [address] [place] [address] 13 Nov, 2016 High risk medication use Z79 .899 [facility] [address] [id number] [address] [place] [address] Nov, Paranoid schizophrenia F20.0 ; Posttraumatic stress disorder F43.10 ; Attention deficit hyperactivity disorder (ADHD), inattentive type, 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 and Borderline personality disorder in adult F60.3 [facility] [address] [id number] [address] [place] [id number] 18 Oct, 2016 Dental caries K02.9 [facility] [address] [id number] [address] [place] [phone] 05 Sep, 2016 Paranoid schizophrenia F20.0 ; Posttraumatic stress disorder F43.10 and Attention deficit hyperactivity disorder (ADHD), inattentive type, 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 [facility] [address] [id number] [address] [place] [phone] 16 Aug, 2016 Paranoid schizophrenia F20.0 ; Posttraumatic stress disorder F43.10 and Attention deficit hyperactivity disorder (ADHD), inattentive type, 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 [facility] [address] [id number] [address] [place] [address] Aug, Strep throat J02.0 and Cough R05 [facility] [address] [id number] [address] [place] [address] Aug, [facility] [address] [id number] [address] [place] [address] 24 Jul, 2016 Paranoid schizophrenia F20.0 ; Posttraumatic stress disorder F43.10 and Attention deficit hyperactivity disorder (ADHD), inattentive type, 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 [facility] [address] [id number] [address] [place] [phone] Jul, [facility] [address] [id number] [address] [place] [phone] 28 Jun, 2016 Paranoid schizophrenia F20.0 ; Posttraumatic stress disorder F43.10 and Attention deficit hyperactivity disorder (ADHD), inattentive type, 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 [facility] [address] [id number] [address] [place] [address] [id number] 22 Jun, 2016 Dental examination Z01.20 [facility] [address] [id number] [address] [place] [phone] 12 Jun, 2016 [facility] [address] [id number] [address] [place] [address] May, Paranoid schizophrenia F20.0 [facility] [address] [id number] [address] [place] [address] May, Paranoid schizophrenia F20.0 ; Posttraumatic stress disorder F43.10 and Attention deficit hyperactivity disorder (ADHD), inattentive type, 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 [facility] [address] [id number] [address] [place] [phone] May, [facility] [address] [id number] [address] [place] [address] May, Paranoid schizophrenia F20.0 [facility] [address] [id number] [address] [place] [address] May, [facility] [address] [id number] [address] [place] [address] May, Paranoid schizophrenia F20.0 [facility] [address] [id number] [address] [place] [address] May, Schizoaffective disorder, un specified F25.9 [facility] [address] [id number] [address] [place] [phone] May, Schizoaffective disorder, un specified F25.9 [facility] [address] [id number] [address] [place] [address] May, [facility] [address] [id number] [address] [place] [address] May, Paranoid schizophrenia F20.0 [facility] [address] [id number] [address] [place] [address] May, Paranoid schizophrenia F20.0 ; Posttraumatic stress disorder F43.10 and Attention deficit hyperactivity disorder (ADHD), inattentive type, 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 [facility] [address] [id number] [address] [place] [address] Mar, [facility] [address] [id number] [address] [place] [address] Mar, Paranoid schizophrenia F20.0 ; Posttraumatic stress disorder F43.10 and Attention deficit hyperactivity disorder (ADHD), inattentive type, 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 [facility] [address] [id number] [address] [place] [id number] Mar, Paranoid schizophrenia F20.0 [facility] [address] [id number] [address] [place] [phone] Mar, Paranoid schizophrenia F20.0 ; Attention deficit hyperactivity disorder (ADHD), inattentive type, 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 and Posttraumatic stress disorder F43.10 [facility] [address] [id number] [address] [place] [address] Mar, [facility] [address] [id number] [address] [place] [address] Mar, Paranoid schizophrenia F20.0 ; Posttraumatic stress disorder F43.10 and Attention deficit hyperactivity disorder (ADHD), inattentive type, 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 [facility] [address] [id number] [address] [place] [address] February, [facility] [address] [id number] [address] [place] [phone] February, [facility] [address] [id number] [address] [place] [id number] February, [facility] [address] [id number] [address] [place] [phone] February, [facility] [address] [id number] [address] [place] [address] Jan, Paranoid schizophrenia F20.0 [facility] [address] [id number] [address] [place] [address] [id number] Jan, Dental examination Z01.20 [facility] [address] [id number] [address] [place] [address] [id number] Jan, Dental caries K02.9 [facility] [address] [id number] [place] [id number] Jan, Dental examination Z01.20 [facility] [address] [id number] [place] [id number] Dec, Encounter for dental examina tion Z01.20 [facility] [address] [id number] [address] [place] [id number] Dec, Paranoid schizophrenia F20.0 [facility] [address] [id number] [address] [place] [id number] Dec, Dental examination Z01.20 [facility] [address] [id number] [address] [place] [id number] Dec, [facility] [address] [id number] [address] [place], [place] [address] Dec, Paranoid schizophrenia F20.0 ; Posttraumatic stress disorder F43.10 and Attention deficit hyperactivity disorder (ADHD), inattentive type, 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 [facility] [address] [id number] [address] [place] [address] Nov, Schizoaffective disorder, un specified F25.9 [facility] [address] [id number] [address] [place] [address] Oct, Paranoid schizophrenia F20.0 [facility] [address] [id number] [address] [place] [address] Oct, [facility] [address] [id number] [address] [place] [address] Sep, Paranoid schizophrenia F20.0 ; Posttraumatic stress disorder F43.10 and Attention deficit hyperactivity disorder (ADHD), inattentive type, 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 [facility] [address] [id number] [address] [place] [address] Sep, [facility] [address] [id number] [address] [place] [address] Sep, Paranoid schizophrenia F20.0 ; Posttraumatic stress disorder F43.10 and Attention deficit hyperactivity disorder (ADHD), inattentive type, 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 [facility] [address] [id number] [address] [place] [address] Aug, Paranoid schizophrenia F20.0 [facility] [address] [id number] [address] [place] [address] Aug, [facility] [address] [facility] [id number] [address] [place] [address] Aug, Posttraumatic stress disorde r F43.10 ; Paranoid schizophrenia F20.0 and Attention deficit hyperactivity disorder (ADHD), inattentive type, 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 [facility] [address] [facility] [id number] [address] [place] [address] Jul, Bipolar disorder, unspecifie d F31.9 [facility] [address] [facility] [id number] [address] [place] [address] Jul, [facility] [address] [facility] [id number] [address] [place] [address] Jun, [facility] [address] [facility] [id number] [address] [place] [address] Jun, Schizoaffective disorder, ch ronic 295.72 ; Posttraumatic stress disorder 309.81 and Attention deficit disorder of childhood without mention of hyperactivity 314.00 [facility] [address] [facility] [id number] [address] [place] [address] May, [facility] [address] [id number] [address] [place] [address] May, [facility] [address] [facility] [id number] [address] [place] [address] May, Schizoaffective disorder, ch ronic 295.72 ; Posttraumatic stress disorder 309.81 ; Attention deficit disorder of childhood without mention of hyperactivity 314.00 and Bipolar disorder, unspecified 296.80 [facility] [address] [id number] [address] [place] [address] Apr, Schizoaffective disorder, ch ronic 295.72 [facility] [address] [id number] [address] [place] [address] Apr, [facility] [address] [id number] [address] [place] [address] Apr, Schizoaffective disorder, ch ronic 295.72 ; Posttraumatic stress disorder 309.81 and Attention deficit disorder of childhood without mention of hyperactivity 314.00 [facility] [address] [id number] [address] [place] [address] Mar, Disorganized schizophrenia, 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 [facility] [address] [id number] [address] [place] [address] Mar, [facility] [address] [id number] [address] [place] [address] Mar, [facility] [address] [facility] [id number] [address] [place] [address] Mar, [facility] [address] [id number] [address] [place] [address] Mar, [facility] [address] [facility] [id number] [address] [place] [address] February, Schizoaffective disorder, ch ronic 295.72 [facility] [address] [facility] [id number] [address] [place] [address] February, [facility] [address] [id number] [address] [place] [address] February, Attention 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 ; Posttraumatic stress disorder 309.81 and Schizoaffective disorder, chronic 295.72 [facility] [address] [id number] [address] [place] [address] Jan, [facility] [address] [id number] [address] [place] [address] Jan, [facility] [address] [id number] [address] [place] [address], [place] [address] Jan, [facility] [address] [id number] [address] [place] [address], [place] [address] Dec, [facility] [address] [id number] [address] [place] [address], [place] [address] Dec, [facility] [address] [id number] [address] [place] [address], [place] [address] Dec, [facility] [address] [id number] [address] [place] [address], [place] [address] Dec, [facility] [address] [id number] [address] [place] [address], [place] [address] Dec, [facility] [address] [id number] [address] [place] [address], [place] [address] Dec, [facility] [address] [id number] [address] [place] [address], [place] [address] Dec, [facility] [address] [id number] [address] [place] [address], [place] [address] Dec, [facility] [address] [id number] [address] [place] [address], [place] [address] Nov, [facility] [address] [id number] [address] [place] [address], [place] [address] Nov, [facility] [address] [id number] [address] [place] [address], [place] [address] Nov, [facility] [address] [id number] [address] [place] [address], [place] [address] Nov, [facility] [address] [id number] [address] [place] [address], [place] [address] Nov, [facility] [address] [id number] [address] [place] [address], [place] [address] Nov, 2014 [facility] [address] [id number] [address] [place] [address], [place] [address] Nov, [facility] [address] [id number] [address] [place] [address], [place] [address] Nov, [facility] [address] [id number] [address] [place] [address], [place] [address] Nov, [facility] [address] [id number] [address] [place] [address], [place] [address] Nov, [facility] [address] [id number] [address] [place] [address], [place] [address] Oct, [facility] [address] [id number] [address] [place] [address], [place] [address] Oct, [facility] [address] [id number] [address] [place] [address], [place] [address] Oct, [facility] [address] [id number] [address] [place] [address], [place] [address] Oct, [facility] [address] [id number] [address] [place] [address], [place] [address] Oct, [facility] [address] [id number] [address] [place] [address], [place] [address] Oct, [facility] [address] [id number] [address] [place] [address], [place] [address] Oct, [facility] [address] [id number] [address] [place] [address], [place] [address] Sep, [facility] [address] [id number] [address] [place] [address], [place] [address] Sep, [facility] [address] [id number] [address] [place] [address], [place] [address] Sep, [facility] [address] [id number] [address] [place] [address], [place] [address] Sep, [facility] [address] [id number] [address] [place] [address], [place] [address] Aug, [facility] [address] [id number] [address] [place] [address], [place] [address] Aug, [facility] [address] [id number] [address] [place] [address], [place] [address] Aug, [facility] [address] [id number] [address] [place] [address], [place] [address] Aug, [facility] [address] [id number] [address] [place] [address], [place] [address] Aug, [facility] [address] [id number] [address] [place] [address], [place] [address] Aug, [facility] [address] [id number] [address] [place] [address], [place] [address] Jul, [facility] [address] [id number] [address] [place] [address], [place] [address] Jul, [facility] [address] [id number] [address] [place] [address], [place] [address] Jul, [facility] [address] [id number] [address] [place] [address], [place] [address] Jul, [facility] [address] [id number] [address] [place] [address], [place] [address] Jul, [facility] [address] [id number] [address] [place] [address], [place] [address] Jul, [facility] [address] [id number] [address] [place] [address], [place] [address] 27 Jun, 2014 [facility] [address] [id number] [address] [place] [address], [place] [address] 27 Jun, 2014 [facility] [address] [id number] [address] [place] [address], [place] [address] 26 Jun, 2014 [facility] [address] [id number] [address] [place] [address], [place] [address] 26 Jun, 2014 [facility] [address] [id number] [address] [place] [address], [place] [address] Jun, [facility] [address] [id number] [address] [place] [address], [place] [address] Jun, 2013 [facility] [address] [id number] [address] [place] [address], [place] [address] Jun, [facility] [address] [id number] [address] [place] [address], [place] [address] Jun, 2013 [facility] [address] [id number] [address] [place] [address], [place] [address] Jun, 2013 [facility] [address] [id number] [address] [place] [address], [place] [address] Jun, [facility] [address] [id number] [address] [place] [address], [place] [address] Jun, [facility] [address] [id number] [address] [place] [address], [place] [address] May, [facility] [address] [id number] [address] [place] [address], [place] [address] May, [facility] [address] [id number] [address] [place] [address], [place] [address] May, [facility] [address] [id number] [address] [place] [address], [place] [address] May, [facility] [address] [id number] [address] [place] [address], [place] [address] May, [facility] [address] [id number] [address] [place] [address], [place] [address] May, [facility] [address] [id number] [address] [place] [address], [place] [address] May, [facility] [address] [id number] [address] [place] [address], [place] [address] May, [facility] [address] [id number] [address] [place] [address], [place] [address] May, [facility] [address] [id number] [facility] [place] [address] May, [facility] [address] [id number] [facility] [address] Apr, [facility] [address] [id number] [facility] [address] Apr, [facility] [address] [id number] [address] [place] [address], [place] [address] Apr, [facility] [address] [id number] [address] [place] [address], [place] [address] Apr, [facility] [address] [id number] [address] [place] [address], [place] [address] Apr, [facility] [address] [id number] [address] [place] [address], [place] [address] Apr, [facility] [address] [id number] [address] [place] [address], [place] [address] Apr, [facility] [address] [id number] [address] [place] [address], [place] [address] Apr, [facility] [address] [id number] [address] [place] [address], [place] [address] Apr, [facility] [address] [id number] [address] [place] [address], [place] [address] Apr, [facility] [address] [id number] [address] [place] [address], [place] [address] Mar, [facility] [address] [id number] [address] [place] [address], [place] [address] Mar, [facility] [address] [id number] [address] [place] [address], [place] [address] Mar, [facility] [address] [id number] [address] [place] [address], [place] [address] Mar, [facility] [address] [id number] [address] [place] [address], [place] [address] Mar, [facility] [address] [id number] [address] [place] [address], [place] [address] 18 Mar, 2014 [facility] [address] [id number] [address] [place] [address], [place] [address] 18 Mar, 2014 [facility] [address] [id number] [address] [place] [address], [place] [address] 16 Mar, 2014 [facility] [address] [id number] [address] [place] [address], [place] [address] 16 Mar, 2014 [facility] [address] [id number] [address] [place] [address], [place] [address] Mar, [facility] [address] [id number] [address] [place] [address], [place] [address] Mar, [facility] [address] [id number] [address] [place] [address], [place] [address] Mar, [facility] [address] [id number] [address] [place] [address], [place] [address] Mar, [facility] [address] [id number] [address] [place] [address], [place] [address] Mar, [facility] [address] [id number] [address] [place] [address], [place] [address] Mar, [facility] [address] [id number] [address] [place] [address], [place] [address] Mar, [facility] [address] [id number] [address] [place] [address] Mar, [facility] [address] [id number] [address] [place] [address], [place] [address] Mar, [facility] [address] [id number] [address] [place] [address], [place] [address] 04 Mar, 2014 [facility] [address] [id number] [address] [place] [address], [place] [address] 04 Mar, 2014 [facility] [address] [id number] [address] [place] [address], [place] [address] February, [facility] [address] [id number] [address] [place] [address], [place] [address] February, [facility] [address] [id number] [address] [place] [address], [place] [address] February, [facility] [address] [id number] [address] [place] [address], [place] [address] February, [facility] [address] [id number] [address] [place] [address], [place] [address] February, [facility] [address] [id number] [address] [place] [address], [place] [address] February, [facility] [address] [id number] [address] [place] [address], [place] [address] February, [facility] [address] [id number] [address] [place] [address], [place] [address] February, [facility] [address] [id number] [address] [place] [address], [place] [address] February, [facility] [address] [id number] [address] [place] [address], [place] [address] February, [facility] [address] [id number] [address] [place] [address], [place] [address] February, [facility] [address] [id number] [address] [place] [address], [place] [address] February, [facility] [address] [id number] [address] [place] [address], [place] [address] February, [facility] [address] [id number] [address] [place] [address], [place] [address] February, [facility] [address] [id number] [address] [place] [address], [place] [address] February, [facility] [address] [id number] [address] [place] [address], [place] [address] February, [facility] [address] [id number] [address] [place] [address], [place] [address] February, [facility] [address] [id number] [address] [place] [address], [place] [address] February, [facility] [address] [id number] [address] [place] [address], [place] [address] February, [facility] [address] [id number] [address] [place] [address], [place] [address] February, [facility] [address] [id number] [address] [place] [address], [place] [address] February, [facility] [address] [id number] [address] [place] [address], [place] [address] Jan, [facility] [address] [id number] [address] [place] [address], [place] [address] Jan, [facility] [address] [id number] [address] [place] [address], [place] [address] Jan, [facility] [address] [id number] [address] [place] [address], [place] [address] Jan, [facility] [address] [id number] [address] [place] [address], [place] [address] Jan, [facility] [address] [id number] [address] [place] [address], [place] [address] Jan, [facility] [address] [id number] [address] [place] [address], [place] [address] Jan, [facility] [address] [id number] [address] [place] [address], [place] [address] Jan, [facility] [address] [id number] [address] [place] [address], [place] [address] Dec, [facility] [address] [id number] [address] [place] [address], [place] [address] Dec, [facility] [address] [id number] [address] [place] [address], [place] [address] 20 Dec, 2013 [facility] [address] [id number] [facility] [address] 19 Dec, 2013 [facility] [address] [id number] [address] [place] [address], [place] [address] 19 Dec, 2013 [facility] [address] [id number] [address] [place] [address], [place] [address] 15 Dec, 2013 [facility] [address] [id number] [address] [place] [address], [place] [address] 15 Dec, 2013 [facility] [address] [id number] [address] [place] [address], [place] [address] 11 Dec, 2013 [facility] [address] [id number] [address] [place] [address], [place] [address] 10 Dec, 2013 [facility] [address] [id number] [address] [place] [address], [place] [address] 10 Dec, 2013 [facility] [address] [id number] [address] [place] [address], [place] [address] 18 Nov, 2013 [facility] [address] [id number] [address] [place] [address], [place] [address] 17 Nov, 2013 [facility] [address] [id number] [address] [place] [address], [place] [address] 17 Nov, 2013 [facility] [address] [id number] [address] [place] [address], [place] [address] 05 Nov, 2013 [facility] [address] [id number] [address] [place] [address], [place] [address] Nov, [facility] [address] [id number] [address] [place] [address], [place] [address] Oct, [facility] [address] [id number] [address] [place] [address], [place] [address] Oct, [facility] [address] [id number] [address] [place] [address], [place] [address] 16 Oct, 2013 [facility] [address] [id number] [address] [place] [address], [place] [address] Sep, [facility] [address] [id number] [address] [place] [address], [place] [address] Sep, [facility] [address] [id number] [address] [place] [address], [place] [address] Sep, [facility] [address] [id number] [address] [place] [address], [place] [address] Sep, [facility] [address] [id number] [address] [place] [address], [place] [address] Aug, [facility] [address] [id number] [address] [place] [address], [place] [address] Aug, [facility] [address] [id number] [address] [place] [address], [place] [address] Jul, [facility] [address] [id number] [address] [place] [address], [place] [address] Jul, [facility] [address] [id number] [address] [place] [address], [place] [address] Jul, [facility] [address] [id number] [address] [place] [address], [place] [address] Jul, [facility] [address] [id number] [address] [place] [address], [place] [address] Jul, [facility] [address] [id number] [address] [place] [address], [place] [address] 25 Jun, 2012 [facility] [address] [id number] [address] [place] [address], [place] [address] 25 Sep, 2012 [facility] [address] [id number] [address] [place] [address], [place] [address] 19 Sep, 2012 [facility] [address] [id number] [address] [place] [address], [place] [address] 18 Sep, 2012 [facility] [address] [id number] [address] [place] [address], [place] [address] 16 Jun, 2013 [facility] [address] [id number] [address] [place] [address], [place] [address] 12 Jun, 2013 [facility] [address] [id number] [address] [place] [address], [place] [address] Jun, [facility] [address] [id number] [address] [place] [address], [place] [address] May, [facility] [address] [id number] [address] [place] [address], [place] [address] May, [facility] [address] [id number] [address] [place] [address], [place] [address] Apr, [facility] [address] [id number] [address] [place] [address], [place] [address] Apr, [facility] [address] [id number] [address] [place] [address], [place] [address] Apr, [facility] [address] [id number] [address] [place] [address], [place] [address] Mar, [facility] [address] [id number] [address] [place] [address], [place] [address] Mar, [facility] [address] [id number] [address] [place] [address], [place] [address] February, [facility] [address] [id number] [address] [place] [address], [place] [address] February, [facility] [address] [id number] [address] [place] [address], [place] [address] February, [facility] [address] [id number] [address] [place] [address], [place] [address] February, [facility] [address] [id number] [address] [place] [address], [place] [address] Jan, [facility] [address] [id number] [address] [place] [address], [place] [address] Jan, [facility] [address] [id number] [address] [place] [address] 16 Jan, 2013 [facility] [address] [id number] [address] [place] [address], [place] [address] 29 Dec, 2012 [facility] [address] [id number] [address] [place] [address], [place] [address] Dec, [facility] [address] [id number] [address] [place] [address], [place] [address] Dec, [facility] [address] [id number] [address] [place] [address], [place] [address] 08 Dec, 2012 [facility] [address] [id number] [address] [place] [address], [place] [address] Nov, [facility] [address] [id number] [address] [place] [address], [place] [address] Nov, [facility] [address] [id number] [address] [place] [address], [place] [address] Oct, [facility] [address] [id number] [address] [place] [address], [place] [address] Oct, [facility] [address] [id number] [address] [place] [address], [place] [address] Oct, [facility] [address] [id number] [address] [place] [address], [place] [address] Oct, [facility] [address] [id number] [address] [place] [address], [place] [address] Aug, [facility] [address] [id number] [address] [place] [address], [place] [address] Aug, [facility] [address] [id number] [address] [place] [address], [place] [address] Jun, [facility] [address] [id number] [address] [place] [address], [place] [address] May, [facility] [address] [id number] [address] [place] [address], [place] [address] May, [facility] [address] [id number] [address] [place] [address], [place] [address] Apr, [facility] [address] [id number] [address] [place] [address], [place] [address] Apr, [facility] [address] [id number] [address] [place] [address], [place] [address] Apr, [facility] [address] [id number] [address] [place] [address], [place] [address] Mar, [facility] [address] [id number] [address] [place] [address], [place] [address] Mar, [facility] [address] [id number] [address] [place] [address], [place] [address] Mar, [facility] [address] [id number] [address] [place] [address], [place] [address] Mar, [facility] [address] [id number] [address] [place] [address], [place] [address] Mar, [facility] [address] [id number] [address] [place] [address], [place] [address] February, [facility] [address] [id number] [address] [place] [address], [place] [address] February, [facility] [address] [id number] [address] [place] [address], [place] [address] February, [facility] [address] [id number] [address] [place] [address], [place] [address] February, [facility] [address] [id number] [address] [place] [address], [place] [address] February, [facility] [address] [id number] [address] [place] [address], [place] [address] February, [facility] [address] [id number] [address] [place] [address], [place] [address] February, [facility] [address] [id number] [address] [place] [address], [place] [address] 25 Jan, 2012 [facility] [address] [id number] [address] [place] [address], [place] [address] 18 Jan, 2012 [facility] [address] [id number] [address] [place] [address], [place] [address] 17 Jan, 2012 [facility] [address] [id number] [address] [place] [address], [place] [address] 13 Jan, 2012 [facility] [address] [id number] [address] [place] [address], [place] [address] 10 Jan, 2012 [facility] [address] [id number] [address] [place] [address], [place] [address] 04 Jan, 2012 [facility] [address] [id number] [address] [place] [address], [place] [address] 30 Dec, 2011 [facility] [address] [id number] [address] [place] [address], [place] [address] 24 Dec, 2011 [facility] [address] [id number] [address] [place] [address], [place] [address] 20 Dec, 2011 [facility] [address] [id number] [address] [place] [address], [place] [address] 13 Dec, 2011 [facility] [address] [id number] [address] [place] [address], [place] [address] 06 Dec, 2011 [facility] [address] [id number] [address] [place] [address], [place] [address] 28 Nov, 2011 [facility] [address] [id number] [address] [place] [address], [place] [address] 27 Nov, 2011 [facility] [address] [id number] [address] [place] [address], [place] [address] 25 Nov, 2011 [facility] [address] [id number] [address] [place] [address], [place] [address] 14 Nov, 2011 [facility] [address] [id number] [address] [place] [address], [place] [address] 10 Nov, 2011 [facility] [address] [id number] [address] [place] [address], [place] [address] Nov, [facility] [address] [id number] [address] [place] [address], [place] [address] Oct, [facility] [address] [id number] [address] [place] [address], [place] [address] Oct, [facility] [address] [id number] [address] [place] [address], [place] [address] Oct, [facility] [address] [id number] [address] [place] [address], [place] [address] Oct, [facility] [address] [id number] [address] [place] [address], [place] [address] Oct, [facility] [address] [id number] [address] [place] [address], [place] [address] Sep, [facility] [address] [id number] [address] [place] [address], [place] [address] Sep, [facility] [address] [id number] [address] [place] [address], [place] [address] Sep, [facility] [address] [id number] [address] [place] [address], [place] [address] 14 Sep, 2011 [facility] [address] [id number] [address] [place] [address], [place] [address] 14 Sep, 2011 [facility] [address] [id number] [address] [place] [address], [place] [address] 13 Sep, 2011 [facility] [address] [id number] [address] [place] [address], [place] [address] 12 Sep, 2011 [facility] [address] [id number] [address] [place] [address], [place] [address] 09 Sep, 2011 [facility] [address] [id number] [address] [place] [address], [place] [address] 05 Sep, 2011 [facility] [address] [id number] [address] [place] [address] [address] Aug, [facility] [address] [id number] [address] [place] [address], [place] [address] Aug, [facility] [address] [id number] [address] [place] [address], [place] [address] Aug, [facility] [address] [id number] [address] [place] [address], [place] [address] Aug, [facility] [address] [id number] [address] [place] [address], [place] [address] Aug, [facility] [address] [id number] [address] [place] [address], [place] [address] Aug, [facility] [address] [id number] [address] [place] [address], [place] [address] Aug, [facility] [address] [id number] [address] [place] [address], [place] [address] Aug, [facility] [address] [id number] [address] [place] [address], [place] [address] Aug, [facility] [address] [id number] [address] [place] [address], [place] [address] Aug, [facility] [address] [id number] [address] [place] [address], [place] [address] Aug, [facility] [address] [id number] [address] [place] [address] Aug, [facility] [address] [id number] [address] [place] [address] Jul, [facility] [address] [id number] [address] [place] [address], [place] [address] Jul, [facility] [address] [id number] [address] [place] [address] Jul, [facility] [address] [id number] [address] [place] [address] Jul, [facility] [address] [id number] [address] [place] [address] Jul, [facility] [address] [id number] [address] [place] [address] Jul, [facility] [address] [id number] [address] [place] [address] Jul, [facility] [address] [id number] [address] [place] [address] Jul, [facility] [address] [id number] [address] [place] [address] Jul, [facility] [address] [id number] [address] [place] [address] Jul, [facility] [address] [id number] [address] [place] [address] Nov, [facility] [address] [id number] [address] [place] [address] Aug, [facility] [address] [id number] [address] [place] [address] Aug, [facility] [address] [id number] [address] [place] [address] Aug, [facility] [address] [id number] [address] [place] [address] Aug, [facility] [address] [id number] [address] [place] [address] Jul, IMMUNIZATIONS No Known Immunizations SOCIAL HISTORY Never Assessed REASON FOR VISIT PLAN OF CARE VITAL SIGNS Height 65.75 in 2014-07-19 Weight 191 lbs 2014-07-19 Temperature 97.9 degrees Fahrenheit 2014-07-19 Heart Rate 78 bpm 2014-07-19 Respiratory Rate 24 2014-07-19 Blood pressure systolic 114 mmHg 2014-07-19 Blood pressure diastolic 84 mmHg 2014-07-19 MEDICATIONS Unknown Medications RESULTS No Results PROCEDURES [...]
--- OUTSIDE RECORDS SUMMARY | 2020-04-04 02:01 | XMS REPORT ---
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 Active 73104285 Problem Generalized anxiety disorder 300.02 A ctive 96239211 Problem Obsessive-compulsive disorders 300.3 Active 985062045 Problem Catatonic schizophrenia, 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 289195301 Problem Disorganized schizophrenia, 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 27604833 Problem Paranoid schizophrenia F20.0 Active 96102412 Problem Borderline personality disorder F60.3 Active 22931673 Problem Paranoid schizophrenia, unspecified condition 295.30 Active 12213590 Problem Schizoaffective disorder, depressive type F25.1 Active 72598014 Problem Bipolar disorder, unspecified 296.80 Active 93820396 Problem Schizoaffective disorder, unspecified F25.9 Active 28207791 Problem Attention deficit hyperactivity disorder (ADHD), inattentive type, 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 86700581 Problem Posttraumatic stress disorder F43.10 Active 02040980 Problem High risk medication use Z79.899 Activ e [id number] ALLERGIES No Information ENCOUNTERS Encounter Location Date Diagnosis [facility] [address] [facility] [id number] [address] [place] [address] May, [facility] [address] [facility] [id number] [address] [place] [address] Apr, Paranoid schizophrenia F20.0 ; Posttraumatic stress disorder F43.10 ; Attention deficit hyperactivity disorder (ADHD), inattentive type, 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 and Borderline personality disorder F60.3 [facility] [address] [facility] [id number] [address] [place] [address] Apr, Paranoid schizophrenia F20.0 [facility] [address] [id number] [address], [place] [address] Apr, Paranoid schizophrenia F20.0 ; Posttraumatic stress disorder F43.10 ; Attention deficit hyperactivity disorder (ADHD), inattentive type, 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 and Borderline personality disorder F60.3 [facility] [address] [id number] [address] [place] [address] Mar, Paranoid schizophrenia F20.0 [facility] [address] [id number] [address] [place] [address] Mar, Paranoid schizophrenia F20.0 ; Posttraumatic stress disorder F43.10 ; Attention deficit hyperactivity disorder (ADHD), inattentive type, 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 and Borderline personality disorder F60.3 [facility] [address] [id number] [address] [place] [address] February, Paranoid schizophrenia F20.0 [facility] [address] [id number] [address] [place] [address] Jan, Paranoid schizophrenia F20.0 ; Posttraumatic stress disorder F43.10 ; Attention deficit hyperactivity disorder (ADHD), inattentive type, 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 and Borderline personality disorder F60.3 [facility] [address] [id number] [address] [place] [address] Dec, Paranoid schizophrenia F20.0 ; Posttraumatic stress disorder F43.10 ; Attention deficit hyperactivity disorder (ADHD), inattentive type, 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 and Borderline personality disorder F60.3 [facility] [address] [id number] [address] [place] [address] Dec, Paranoid schizophrenia F20.0 ; Posttraumatic stress disorder F43.10 ; Attention deficit hyperactivity disorder (ADHD), inattentive type, 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 and Borderline personality disorder F60.3 [facility] [address] [id number] [address] [place] [address] Oct, Paranoid schizophrenia F20.0 ; Posttraumatic stress disorder F43.10 ; Attention deficit hyperactivity disorder (ADHD), inattentive type, 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 and Borderline personality disorder F60.3 [facility] [address] [id number] [address] [place] [address] Oct, Paranoid schizophrenia F20.0 ; Posttraumatic stress disorder F43.10 ; Attention deficit hyperactivity disorder (ADHD), inattentive type, 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 and Borderline personality disorder F60.3 [facility] [address] [id number] [address] [place] [address] Aug, [facility] [address] [id number] [address] [place] [address] Aug, Paranoid schizophrenia F20.0 ; Posttraumatic stress disorder F43.10 ; Attention deficit hyperactivity disorder (ADHD), inattentive type, 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0 ; Posttraumatic stress disorder F43.10 ; Attention deficit hyperactivity disorder (ADHD), inattentive type, 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 and Borderline personality disorder F60.3 [facility] [address] [id number] [address] [place] [address] May, [facility] [address] [id number] [address] [place] [address] May, Paranoid schizophrenia F20.0 [facility] [address] [id number] [address] [place] [address] May, Paranoid schizophrenia F20.0 ; Posttraumatic stress disorder F43.10 ; Attention deficit hyperactivity disorder (ADHD), inattentive type, 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 and Borderline personality disorder F60.3 [facility] [address] [id number] [address] [place] [address] Apr, [facility] [address] [id number] [address] [place] [address] Apr, Paranoid schizophrenia F20.0 ; Posttraumatic stress disorder F43.10 ; Attention deficit hyperactivity disorder (ADHD), inattentive type, 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 and Borderline personality disorder F60.3 [facility] [address] [id number] [address] [place] [address] Apr, [facility] [address] [id number] [address] [place] [address] Apr, Schizoaffective disorder, de pressive type F25.1 and Borderline personality disorder F60.3 [facility] [address] [id number] [address] [place] [address] Apr, Paranoid schizophrenia F20.0 ; Posttraumatic stress disorder F43.10 ; Attention deficit hyperactivity disorder (ADHD), inattentive type, 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 and Borderline personality disorder F60.3 [facility] [address] [id number] [address] [place] [address] Apr, [facility] [address] [id number] [address] [place] [address] Apr, Paranoid schizophrenia F20.0 ; Posttraumatic stress disorder F43.10 ; Attention deficit hyperactivity disorder (ADHD), inattentive type, 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 and Borderline personality disorder F60.3 [facility] [address] [id number] [address] [place] [address] Apr, [facility] [address] [id number] [address] [place] [address] Mar, Paranoid schizophrenia F20.0 [facility] [address] [id number] [address] [place] [address] Mar, [facility] [address] [id number] [address], [place] [address] Mar, Paranoid schizophrenia F20.0 ; Posttraumatic stress disorder F43.10 ; Attention deficit hyperactivity disorder (ADHD), inattentive type, 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 and Borderline personality disorder F60.3 [facility] [address] [id number] [address] [place] [address] February, Paranoid schizophrenia F20.0 [facility] [address] [id number] [address] [place] [address] February, Paranoid schizophrenia F20.0 ; Posttraumatic stress disorder F43.10 ; Attention deficit hyperactivity disorder (ADHD), inattentive type, 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 and Borderline personality disorder F60.3 [facility] [address] [id number] [address] [place] [address] February, Paranoid schizophrenia F20.0 ; Posttraumatic stress disorder F43.10 ; Attention deficit hyperactivity disorder (ADHD), inattentive type, 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 and Borderline personality disorder F60.3 [facility] [address] [id number] [address] [place] [address] February, [facility] [address] [id number] [address] [place] [address] February, Paranoid schizophrenia F20.0 [facility] [address] [id number] [address] [place] [address] February, Paranoid schizophrenia F20.0 [facility] [address] [id number] [address] [place] [address] February, Paranoid schizophrenia F20.0 ; Posttraumatic stress disorder F43.10 ; Attention deficit hyperactivity disorder (ADHD), inattentive type, 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 and Borderline personality disorder F60.3 [facility] [address] [id number] [address] [place] [address] Jan, Paranoid schizophrenia F20.0 ; Posttraumatic stress disorder F43.10 ; Attention deficit hyperactivity disorder (ADHD), inattentive type, 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 and Borderline personality disorder F60.3 [facility] [address] [id number] [address] [place] [address] Jan, Paranoid schizophrenia F20.0 [facility] [address] [id number] [address] [place] [address] Jan, Paranoid schizophrenia F20.0 [facility] [address] [id number] [address] [place] [address] Jan, Paranoid schizophrenia F20.0 ; Posttraumatic stress disorder F43.10 ; Attention deficit hyperactivity disorder (ADHD), inattentive type, 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 and Borderline personality disorder F60.3 [facility] [address] [id number] [address] [place] [address] Dec, [facility] [address] [id number] [address] [place] [address] Nov, Paranoid schizophrenia F20.0 ; Posttraumatic stress disorder F43.10 ; Attention deficit hyperactivity disorder (ADHD), inattentive type, 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 and Borderline personality disorder F60.3 [facility] [address] [id number] [address] [place] [address] Nov, [facility] [address] [facility] [id number] [address] [place] [address] Oct, Paranoid schizophrenia F20.0 [facility] [address] [id number] [address] [place] [address] Oct, Paranoid schizophrenia F20.0 ; Posttraumatic stress disorder F43.10 ; Attention deficit hyperactivity disorder (ADHD), inattentive type, 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 ; Borderline personality disorder F60.3 and 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.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 [facility] [address] [id number] [address] [place] [address] Oct, [facility] [address] [id number] [address] [place] [address] Oct, [facility] [address] [facility] [id number] [address] [place] [address] Sep, [facility] [address] [id number] [address] [place] [address] Sep, Paranoid schizophrenia F20.0 ; Posttraumatic stress disorder F43.10 ; Attention deficit hyperactivity disorder (ADHD), inattentive type, 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 and Borderline personality disorder F60.3 [facility] [address] [facility] [id number] [address] [place] [address] Sep, Paranoid schizophrenia F20.0 [facility] [address] [id number] [address] [place] [address] Aug, Paranoid schizophrenia F20.0 ; Posttraumatic stress disorder F43.10 ; Attention deficit hyperactivity disorder (ADHD), inattentive type, 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 and Borderline personality disorder F60.3 [facility] [address] [facility] [id number] [address] [place] [address] Aug, Paranoid schizophrenia F20.0 ; Posttraumatic stress disorder F43.10 ; Attention deficit hyperactivity disorder (ADHD), inattentive type, 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 and Borderline personality disorder F60.3 [facility] [address] [facility] [id number] [address] [place] [address] Aug, [facility] [address] [facility] [id number] [address] [place] [address] Jul, Paranoid schizophrenia F20.0 ; Posttraumatic stress disorder F43.10 ; Attention deficit hyperactivity disorder (ADHD), inattentive type, 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 and Borderline personality disorder F60.3 [facility] [address] [facility] [id number] [address] [place] [address] Jul, Paranoid schizophrenia F20.0 [facility] [address] [facility] [id number] [address] [place] [address] Jul, Paranoid schizophrenia F20.0 ; Posttraumatic stress disorder F43.10 ; Attention deficit hyperactivity disorder (ADHD), inattentive type, 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 and Borderline personality disorder F60.3 [facility] [address] [id number] [address] [address] Jun, Paranoid schizophrenia F20.0 ; Posttraumatic stress disorder F43.10 ; Attention deficit hyperactivity disorder (ADHD), inattentive type, 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 and Borderline personality disorder F60.3 [facility] [place] [address] [id number] [address] [place] [address], [place] [address] May, Other continuous churn buttermaker (current) dr ug therapy Z79.899 [facility] [address] [id number] [address] [place] [address] May, [facility] [address] [id number] [address] [place] [address] May, [facility] [address] [id number] [address] [place] [address] May, Attention deficit hyperactiv ity disorder (ADHD), inattentive type, mild F90.0 [facility] [address] [id number] [address] [place] [address] May, [facility] [address] [id number] [address] [place] [address] May, Attention deficit hyperactiv ity disorder (ADHD), inattentive type, mild F90.0 [facility] [address] [id number] [address] [place] [address] May, Paranoid schizophrenia F20.0 ; Posttraumatic stress disorder F43.10 ; Attention deficit hyperactivity disorder (ADHD), inattentive type, 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 and 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.899 [facility] [address] [id number] [address] [place] [address] Apr, Paranoid schizophrenia F20.0 [facility] [place] [address] [id number] [address] [place] [address] Apr, Paranoid schizophrenia F20.0 ; Posttraumatic stress disorder F43.10 and Attention deficit hyperactivity disorder (ADHD), inattentive type, 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 [facility] [address] [id number] [address] [place] [address] February, [facility] [address] [id number] [address] [place] [address] February, Paranoid schizophrenia F20.0 ; Posttraumatic stress disorder F43.10 and Attention deficit hyperactivity disorder (ADHD), inattentive type, 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 [facility] [address] [id number] [address] [place] [address] February, Paranoid schizophrenia F20.0 ; Posttraumatic stress disorder F43.10 and Attention deficit hyperactivity disorder (ADHD), inattentive type, 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 [facility] [address] [id number] [address] [place] [address] Jan, Paranoid schizophrenia F20.0 ; Posttraumatic stress disorder F43.10 and Attention deficit hyperactivity disorder (ADHD), inattentive type, 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 [facility] [address] [id number] [address] [place] [id number] Dec, Dental examination Z01.20 [facility] [address] [id number] [address] [place] [address] [id number] Nov, Dental examination Z01.20 [facility] [address] [id number] [address] [place] [id number] Nov, Dental examination Z01.20 [facility] [address] [id number] [address] [place] [address] [id number] 14 Nov, 2016 Dental caries K02.9 [facility] [address] [id number] [address] [place] [address] 13 Nov, 2016 High risk medication use Z79 .899 [facility] [address] [id number] [address] [place] [address] Nov, Paranoid schizophrenia F20.0 ; Posttraumatic stress disorder F43.10 ; Attention deficit hyperactivity disorder (ADHD), inattentive type, 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 and Borderline personality disorder in adult F60.3 [facility] [address] [id number] [address] [place] [address] [id number] Oct, Dental caries K02.9 [facility] [address] [facility] [id number] [address] [place] [address] Sep, Paranoid schizophrenia F20.0 ; Posttraumatic stress disorder F43.10 and Attention deficit hyperactivity disorder (ADHD), inattentive type, 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 [facility] [address] [id number] [address] [place] [address] Aug, Paranoid schizophrenia F20.0 ; Posttraumatic stress disorder F43.10 and Attention deficit hyperactivity disorder (ADHD), inattentive type, 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10 and Attention deficit hyperactivity disorder (ADHD), inattentive type, 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 [facility] [address] [id number] [address] [place] [address] Jul, [facility] [address] [facility] [id number] [address] [place] [address] Jun, Paranoid schizophrenia F20.0 ; Posttraumatic stress disorder F43.10 and Attention deficit hyperactivity disorder (ADHD), inattentive type, 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 [facility] [address] [id number] [address] [place] [id number] Jun, Dental examination Z01.20 [facility] [address] [id number] [address] [place] [address] Jun, [facility] [address] [facility] [id number] [address] [place] [address] May, Paranoid schizophrenia F20.0 [facility] [address] [id number] [address] [place] [address] May, Paranoid schizophrenia F20.0 ; Posttraumatic stress disorder F43.10 and Attention deficit hyperactivity disorder (ADHD), inattentive type, 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 [facility] [address] [id number] [address] [place] [address] May, [facility] [address] [id number] [address] [place] [address] May, Paranoid schizophrenia F20.0 [facility] [address] [id number] [address] [place] [address] May, [facility] [address] [id number] [address] [place] [address] May, Paranoid schizophrenia F20.0 [facility] [address] [id number] [address] [place] [address] May, Schizoaffective disorder, un specified F25.9 [facility] [address] [id number] [address] [place] [address] May, Schizoaffective disorder, un specified F25.9 [facility] [address] [id number] [address] [place] [address] May, [facility] [address] [id number] [address] [place] [address] May, Paranoid schizophrenia F20.0 [facility] [address] [id number] [address] [place] [address] May, Paranoid schizophrenia F20.0 ; Posttraumatic stress disorder F43.10 and Attention deficit hyperactivity disorder (ADHD), inattentive type, 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 [facility] [address] [id number] [address] [place] [address] Mar, [facility] [address] [id number] [address] [place] [address] Mar, Paranoid schizophrenia F20.0 ; Posttraumatic stress disorder F43.10 and Attention deficit hyperactivity disorder (ADHD), inattentive type, 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 [facility] [address] [id number] [address] [place] [address] Mar, Paranoid schizophrenia F20.0 [facility] [address] [id number] [address] [place] [address] Mar, Paranoid schizophrenia F20.0 ; Attention deficit hyperactivity disorder (ADHD), inattentive type, 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 and Posttraumatic stress disorder F43.10 [facility] [address] [id number] [address] [place] [address] Mar, [facility] [address] [id number] [address] [place] [address] Mar, Paranoid schizophrenia F20.0 ; Posttraumatic stress disorder F43.10 and Attention deficit hyperactivity disorder (ADHD), inattentive type, 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 [facility] [address] [id number] [address] [place] [address] February, [facility] [address] [id number] [address] [place] [address] February, [facility] [address] [id number] [address] [place] [address] February, [facility] [address] [id number] [address] [place] [address] February, [facility] [address] [id number] [address] [place] [address] Jan, Paranoid schizophrenia F20.0 [facility] [address] [id number] [address] [place] [address] [id number] Jan, Dental examination Z01.20 [facility] [address] [id number] [address] [place] [address] [id number] Jan, Dental caries K02.9 [facility] [facility] [address] [id number] [address] [place] [address] [id number] Jan, Dental examination Z01.20 [facility] [address] [id number] [address] [place] [address] [id number] Dec, Encounter for dental examina tion Z01.20 [facility] [address] [id number] [address] [place] [address] 30 Dec, 2015 Paranoid schizophrenia F20.0 [facility] [address] [id number] [address] [place] [address] [id number] Dec, Dental examination Z01.20 [facility] [address] [id number] [address] [place] [address] Dec, [facility] [address] [id number] [address] [place] [address] Dec, Paranoid schizophrenia F20.0 ; Posttraumatic stress disorder F43.10 and Attention deficit hyperactivity disorder (ADHD), inattentive type, 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 [facility] [address] [id number] [address] [place] [address] Nov, Schizoaffective disorder, un specified F25.9 [facility] [address] [id number] [address] [place] [address] Oct, Paranoid schizophrenia F20.0 [facility] [address] [id number] [address] [place] [address] Oct, [facility] [address] [id number] [address] [place] [address] Sep, Paranoid schizophrenia F20.0 ; Posttraumatic stress disorder F43.10 and Attention deficit hyperactivity disorder (ADHD), inattentive type, 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 [facility] [address] [id number] [address] [place] [address] Sep, [facility] [address] [id number] [address] [place] [address] Sep, Paranoid schizophrenia F20.0 ; Posttraumatic stress disorder F43.10 and Attention deficit hyperactivity disorder (ADHD), inattentive type, 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 [facility] [address] [id number] [address] [place] [address] Aug, Paranoid schizophrenia F20.0 [facility] [address] [id number] [address] [place] [address] Aug, [facility] [address] [id number] [address] [place] [address] Aug, Posttraumatic stress disorde r F43.10 ; Paranoid schizophrenia F20.0 and Attention deficit hyperactivity disorder (ADHD), inattentive type, 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 [facility] [address] [id number] [address] [place] [address] Jul, Bipolar disorder, unspecifie d F31.9 [facility] [address] [id number] [address] [place] [address] Jul, [facility] [address] [id number] [address] [place] [address] Jun, [facility] [address] [id number] [address] [place] [address] Jun, Schizoaffective disorder, ch ronic 295.72 ; Posttraumatic stress disorder 309.81 and Attention deficit disorder of childhood without mention of hyperactivity 314.00 [facility] [address] [id number] [address] [place] [address] May, [facility] [address] [id number] [address] [place] [address] May, [facility] [address] [id number] [address] [place] [address] May, Schizoaffective disorder, ch ronic 295.72 ; Posttraumatic stress disorder 309.81 ; Attention deficit disorder of childhood without mention of hyperactivity 314.00 and Bipolar disorder, unspecified 296.80 [facility] [address] [id number] [address] [place] [address] Apr, Schizoaffective disorder, ch ronic 295.72 [facility] [address] [id number] [address] [place] [address] Apr, [facility] [address] [id number] [address] [place] [address] Apr, Schizoaffective disorder, ch ronic 295.72 ; Posttraumatic stress disorder 309.81 and Attention deficit disorder of childhood without mention of hyperactivity 314.00 [facility] [address] [id number] [address] [place] [address] Mar, Disorganized schizophrenia, 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 [facility] [address] [id number] [address] [place] [address] Mar, [facility] [address] [id number] [address] [place] [address] Mar, [facility] [address] [id number] [address] [place] [address] Mar, [facility] [address] [id number] [address] [place] [address] Mar, [facility] [address] [id number] [address] [place] [address] February, Schizoaffective disorder, ch ronic 295.72 [facility] [address] [id number] [address] [place] [address] February, [facility] [address] [id number] [address] [place] [address] February, Attention 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 ; Posttraumatic stress disorder 309.81 and Schizoaffective disorder, chronic 295.72 [facility] [address] [id number] [address] [place] [address] Jan, [facility] [address] [id number] [address] [place] [address] Jan, [facility] [address] [id number] [address] [place] [address] Jan, [facility] [address] [id number] [facility] [place] [address] Dec, [facility] [address] [id number] [address] [place] [address], [place] [address] Dec, [facility] [address] [id number] [facility] [place] [address] Dec, [facility] [address] [id number] [address] [place] [address], [place] [address] Dec, [facility] [address] [id number] [address] [place] [address], [place] [address] Dec, [facility] [address] [id number] [address] [place] [address], [place] [address] Dec, [facility] [address] [id number] [address] [place] [address], [place] [address] Dec, [facility] [address] [id number] [address] [place] [address], [place] [address] Dec, [facility] [address] [id number] [address] [place] [address], [place] [address] Nov, [facility] [address] [id number] [address] [place] [address], [place] [address] Nov, [facility] [address] [id number] [address] [place] [address], [place] [address] Nov, [facility] [address] [id number] [address] [place] [address], [place] [address] Nov, [facility] [address] [id number] [address] [place] [address], [place] [address] Nov, [facility] [address] [id number] [address] [place] [address], [place] [address] Nov, [facility] [address] [id number] [address] [place] [address], [place] [address] 05 Nov, 2014 [facility] [address] [id number] [address] [place] [address], [place] [address] 05 Nov, 2014 [facility] [address] [id number] [address] [place] [address], [place] [address] Nov, [facility] [address] [id number] [address] [place] [address], [place] [address] Nov, [facility] [address] [id number] [address] [place] [address], [place] [address] Oct, [facility] [address] [id number] [address] [place] [address], [place] [address] Oct, [facility] [address] [id number] [address] [place] [address], [place] [address] Oct, [facility] [address] [id number] [address] [place] [address], [place] [address] Oct, [facility] [address] [id number] [address] [place] [address], [place] [address] Oct, [facility] [address] [id number] [address] [place] [address], [place] [address] Oct, [facility] [address] [id number] [address] [place] [address], [place] [address] Oct, [facility] [address] [id number] [address] [place] [address], [place] [address] Sep, [facility] [address] [id number] [address] [place] [address], [place] [address] Sep, [facility] [address] [id number] [address] [place] [address], [place] [address] Sep, [facility] [address] [id number] [address] [place] [address], [place] [address] Sep, [facility] [address] [id number] [address] [place] [address], [place] [address] Aug, [facility] [address] [id number] [address] [place] [address], [place] [address] Aug, [facility] [address] [id number] [address] [place] [address], [place] [address] Aug, [facility] [address] [id number] [address] [place] [address], [place] [address] Aug, [facility] [address] [id number] [address] [place] [address], [place] [address] Aug, [facility] [address] [id number] [address] [place] [address], [place] [address] Aug, [facility] [address] [id number] [address] [place] [address], [place] [address] Jul, [facility] [address] [id number] [address] [place] [address], [place] [address] Jul, [facility] [address] [id number] [address] [place] [address], [place] [address] Jul, [facility] [address] [id number] [address] [place] [address], [place] [address] Jul, [facility] [address] [id number] [address] [place] [address], [place] [address] Jul, [facility] [address] [id number] [address] [place] [address], [place] [address] Jul, [facility] [address] [id number] [address] [place] [address], [place] [address] 27 Jun, 2014 [facility] [address] [id number] [address] [place] [address], [place] [address] 27 Jun, 2014 [facility] [address] [id number] [address] [place] [address], [place] [address] Jun, [facility] [address] [id number] [address] [place] [address], [place] [address] Jun, [facility] [address] [id number] [address] [place] [address], [place] [address] Jun, [facility] [address] [id number] [address] [place] [address], [place] [address] Jun, [facility] [address] [id number] [facility] [place] [address] Jun, 2013 [facility] [address] [id number] [address] [place] [address], [place] [address] Jun, [facility] [address] [id number] [address] [place] [address], [place] [address] Jun, [facility] [address] [id number] [address] [place] [address], [place] [address] Jun, [facility] [address] [id number] [address] [place] [address], [place] [address] Jun, [facility] [address] [id number] [address] [place] [address], [place] [address] May, [facility] [address] [id number] [address] [place] [address], [place] [address] May, [facility] [address] [id number] [address] [place] [address], [place] [address] May, [facility] [address] [id number] [address] [place] [address], [place] [address] May, [facility] [address] [id number] [address] [place] [address], [place] [address] May, [facility] [address] [id number] [address] [place] [address], [place] [address] May, [facility] [address] [id number] [address] [place] [address], [place] [address] May, [facility] [address] [id number] [address] [place] [address], [place] [address] May, [facility] [address] [id number] [address] [place] [address], [place] [address] May, [facility] [address] [id number] [address] [place] [address], [place] [address] May, [facility] [address] [id number] [facility] [place] [address] Apr, [facility] [address] [id number] [facility] [place] [address] Apr, [facility] [address] [id number] [address] [place] [address], [place] [address] Apr, [facility] [address] [id number] [address] [place] [address], [place] [address] Apr, [facility] [address] [id number] [address] [place] [address], [place] [address] Apr, [facility] [address] [id number] [address] [place] [address], [place] [address] Apr, [facility] [address] [id number] [address] [place] [address], [place] [address] Apr, [facility] [address] [id number] [address] [place] [address], [place] [address] Apr, [facility] [address] [id number] [address] [place] [address], [place] [address] Apr, [facility] [address] [id number] [address] [place] [address], [place] [address] Apr, [facility] [address] [id number] [address] [place] [address], [place] [address] Mar, [facility] [address] [id number] [address] [place] [address], [place] [address] Mar, [facility] [address] [id number] [address] [place] [address], [place] [address] Mar, [facility] [address] [id number] [address] [place] [address], [place] [address] Mar, [facility] [address] [id number] [address] [place] [address], [place] [address] Mar, [facility] [address] [id number] [address] [place] [address], [place] [address] Mar, [facility] [address] [id number] [facility] [place] [address] 18 Mar, 2014 [facility] [address] [id number] [facility] [place] [address] Mar, [facility] [address] [id number] [facility] [place] [address] 16 Mar, 2014 [facility] [address] [id number] [address] [place] [address], [place] [address] Mar, [facility] [address] [id number] [address] [place] [address], [place] [address] Mar, [facility] [address] [id number] [address] [place] [address], [place] [address] Mar, [facility] [address] [id number] [address] [place] [address], [place] [address] Mar, [facility] [address] [id number] [address] [place] [address], [place] [address] Mar, [facility] [address] [id number] [address] [place] [address], [place] [address] Mar, [facility] [address] [id number] [address] [place] [address], [place] [address] Mar, [facility] [address] [id number] [address] [place] [address], [place] [address] Mar, [facility] [address] [id number] [address] [place] [address], [place] [address] Mar, [facility] [address] [id number] [address] [place] [address], [place] [address] Mar, [facility] [address] [id number] [address] [place] [address], [place] [address] Mar, [facility] [address] [id number] [address] [place] [address], [place] [address] February, [facility] [address] [id number] [address] [place] [address] [place] [address] February, [facility] [address] [id number] [facility] [place] [address] February, [facility] [address] [id number] [address] [place] [address], [place] [address] February, [facility] [address] [id number] [address] [place] [address], [place] [address] February, [facility] [address] [id number] [address] [place] [address], [place] [address] February, [facility] [address] [id number] [address] [place] [address], [place] [address] February, [facility] [address] [id number] [address] [place] [address], [place] [address] February, [facility] [address] [id number] [address] [place] [address], [place] [address] February, [facility] [address] [id number] [address] [place] [address], [place] [address] February, [facility] [address] [id number] [address] [place] [address], [place] [address] February, [facility] [address] [id number] [address] [place] [address], [place] [address] February, [facility] [address] [id number] [address] [place] [address], [place] [address] February, [facility] [address] [id number] [address] [place] [address], [place] [address] February, [facility] [address] [id number] [address] [place] [address], [place] [address] February, [facility] [address] [id number] [address] [place] [address], [place] [address] February, [facility] [address] [id number] [address] [place] [address], [place] [address] February, [facility] [address] [id number] [address] [place] [address], [place] [address] February, [facility] [address] [id number] [address] [place] [address], [place] [address] February, [facility] [address] [id number] [address] [place] [address], [place] [address] February, [facility] [address] [id number] [address] [place] [address], [place] [address] February, [facility] [address] [id number] [address] [place] [address], [place] [address] Jan, [facility] [address] [id number] [address] [place] [address], [place] [address] Jan, [facility] [address] [id number] [address] [place] [address], [place] [address] Jan, [facility] [address] [id number] [address] [place] [address], [place] [address] Jan, [facility] [address] [id number] [address] [place] [address], [place] [address] Jan, [facility] [address] [id number] [address] [place] [address], [place] [address] Jan, [facility] [address] [id number] [address] [place] [address], [place] [address] Jan, [facility] [address] [id number] [address] [place] [address], [place] [address] Jan, [facility] [address] [id number] [address] [place] [address], [place] [address] Dec, [facility] [address] [id number] [address] [place] [address], [place] [address] Dec, [facility] [address] [id number] [address] [place] [address], [place] [address] Dec, [facility] [address] [id number] [address] [place] [address], [place] [address] 19 Dec, 2013 [facility] [address] [id number] [address] [place] [address], [place] [address] 19 Dec, 2013 [facility] [address] [id number] [address] [place] [address], [place] [address] 15 Dec, 2013 [facility] [address] [id number] [address] [place] [address], [place] [address] 15 Dec, 2013 [facility] [address] [id number] [address] [place] [address], [place] [address] 11 Dec, 2013 [facility] [address] [id number] [address] [place] [address], [place] [address] 10 Dec, 2013 [facility] [address] [id number] [address] [place] [address], [place] [address] 10 Dec, 2013 [facility] [address] [id number] [address] [place] [address], [place] [address] 18 Nov, 2013 [facility] [address] [id number] [address] [place] [address], [place] [address] 17 Nov, 2013 [facility] [address] [id number] [address] [place] [address], [place] [address] 17 Nov, 2013 [facility] [address] [id number] [address] [place] [address], [place] [address] 05 Nov, 2013 [facility] [address] [id number] [address] [place] [address], [place] [address] 05 Nov, 2013 [facility] [address] [id number] [address] [place] [address], [place] [address] Oct, [facility] [address] [id number] [address] [place] [address], [place] [address] Oct, [facility] [address] [id number] [address] [place] [address], [place] [address] 16 Oct, 2013 [facility] [address] [id number] [address] [place] [address], [place] [address] Sep, [facility] [address] [id number] [address] [place] [address], [place] [address] Sep, [facility] [address] [id number] [address] [place] [address], [place] [address] Sep, [facility] [address] [id number] [address] [place] [address], [place] [address] Sep, [facility] [address] [id number] [address] [place] [address], [place] [address] Aug, [facility] [address] [id number] [address] [place] [address], [place] [address] Aug, [facility] [address] [id number] [address] [place] [address], [place] [address] Jul, [facility] [address] [id number] [address] [place] [address], [place] [address] Jul, [facility] [address] [id number] [address] [place] [address], [place] [address] Jul, [facility] [address] [id number] [address] [place] [address], [place] [address] Jul, [facility] [address] [id number] [address] [place] [address], [place] [address] Jul, [facility] [address] [id number] [address] [place] [address], [place] [address] 25 Jun, 2013 [facility] [address] [id number] [address] [place] [address], [place] [address] 25 Jun, 2012 [facility] [address] [id number] [address] [place] [address], [place] [address] 19 Sep, 2012 [facility] [address] [id number] [address] [place] [address], [place] [address] 18 Sep, 2012 [facility] [address] [id number] [address] [place] [address], [place] [address] 16 Sep, 2012 [facility] [address] [id number] [address] [place] [address], [place] [address] Jun, [facility] [address] [id number] [address] [place] [address], [place] [address] Jun, [facility] [address] [id number] [address] [place] [address], [place] [address] May, [facility] [address] [id number] [address] [place] [address], [place] [address] May, [facility] [address] [id number] [address] [place] [address], [place] [address] Apr, [facility] [address] [id number] [address] [place] [address], [place] [address] Apr, [facility] [address] [id number] [address] [place] [address], [place] [address] Apr, [facility] [address] [id number] [address] [place] [address], [place] [id number] Mar, [facility] [address] [id number] [address] [place] [address], [place] [address] Mar, [facility] [address] [id number] [address] [place] [address], [place] [address] February, [facility] [address] [id number] [address] [place] [address], [place] [address] February, [facility] [address] [id number] [address] [place] [address], [place] [address] February, [facility] [address] [id number] [address] [place] [address], [place] [address] February, [facility] [address] [id number] [address] [place] [address], [place] [address] Jan, [facility] [address] [id number] [address] [place] [address], [place] [address] Jan, [facility] [address] [id number] [address] [place] [address], [place] [address] 16 Jan, 2013 [facility] [address] [id number] [address] [place] [address], [place] [address] 29 Dec, 2012 [facility] [address] [id number] [address] [place] [address], [place] [address] Dec, [facility] [address] [id number] [address] [place] [address], [place] [address] Dec, [facility] [address] [id number] [address] [place] [address], [place] [address] Dec, [facility] [address] [id number] [address] [place] [address], [place] [address] Nov, [facility] [address] [id number] [address] [place] [address], [place] [address] Nov, [facility] [address] [id number] [address] [place] [address], [place] [address] Oct, [facility] [address] [id number] [address] [place] [address], [place] [address] Oct, [facility] [address] [id number] [address] [place] [address], [place] [address] Oct, [facility] [address] [id number] [address] [place] [address], [place] [address] Oct, [facility] [address] [id number] [address] [place] [address], [place] [address] Aug, [facility] [address] [id number] [address] [place] [address], [place] [address] Aug, [facility] [address] [id number] [address] [place] [address], [place] [address] Jun, [facility] [address] [id number] [address] [place] [address], [place] [address] May, [facility] [address] [id number] [address] [place] [address], [place] [address] May, [facility] [address] [id number] [address] [place] [address], [place] [address] Apr, [facility] [address] [id number] [address] [place] [address], [place] [address] Apr, [facility] [address] [id number] [address] [place] [address], [place] [address] Apr, [facility] [address] [id number] [address] [place] [address], [place] [address] Mar, [facility] [address] [id number] [address] [place] [address], [place] [address] Mar, [facility] [address] [id number] [address] [place] [address], [place] [address] Mar, [facility] [address] [id number] [address] [place] [address], [place] [address] Mar, [facility] [address] [id number] [address] [place] [address], [place] [address] Mar, [facility] [address] [id number] [address] [place] [address], [place] [address] February, [facility] [address] [id number] [address] [place] [address], [place] [address] February, [facility] [address] [id number] [address] [place] [address], [place] [address] February, [facility] [address] [id number] [address] [place] [address], [place] [address] February, [facility] [address] [id number] [address] [place] [address], [place] [address] February, [facility] [address] [id number] [address] [place] [address], [place] [address] February, [facility] [address] [id number] [address] [place] [address], [place] [address] February, [facility] [address] [id number] [address] [place] [address], [place] [address] Jan, [facility] [address] [id number] [address] [place] [address], [place] [address] 18 Jan, 2012 [facility] [address] [id number] [address] [place] [address], [place] [address] 17 Jan, 2012 [facility] [address] [id number] [address] [place] [address], [place] [address] 13 Jan, 2012 [facility] [address] [id number] [address] [place] [address], [place] [address] 10 Jan, 2012 [facility] [address] [id number] [address] [place] [address], [place] [address] 04 Jan, 2012 [facility] [address] [id number] [address] [place] [address], [place] [address] 30 Dec, 2011 [facility] [address] [id number] [address] [place] [address], [place] [address] 24 Dec, 2011 [facility] [address] [id number] [address] [place] [address], [place] [address] 20 Dec, 2011 [facility] [address] [id number] [address] [place] [address], [place] [address] 13 Dec, 2011 [facility] [address] [id number] [address] [place] [address], [place] [address] 06 Dec, 2011 [facility] [address] [id number] [address] [place] [address], [place] [address] 28 Nov, 2011 [facility] [address] [id number] [address] [place] [address], [place] [address] 27 Nov, 2011 [facility] [address] [id number] [address] [place] [address], [place] [address] 25 Nov, 2011 [facility] [address] [id number] [address] [place] [address], [place] [address] 14 Nov, 2011 [facility] [address] [id number] [address] [place] [address], [place] [address] 10 Nov, 2011 [facility] [address] [id number] [address] [place] [address], [place] [address] 01 Nov, 2011 [facility] [address] [id number] [address] [place] [address], [place] [address] Oct, [facility] [address] [id number] [address] [place] [address], [place] [address] Oct, [facility] [address] [id number] [address] [place] [address], [place] [address] Oct, [facility] [address] [id number] [address] [place] [address], [place] [address] Oct, [facility] [address] [id number] [address] [place] [address], [place] [address] Oct, [facility] [address] [id number] [address] [place] [address], [place] [address] Sep, [facility] [address] [id number] [address] [place] [address], [place] [address] Sep, [facility] [address] [id number] [address] [place] [address], [place] [address] Sep, [facility] [address] [id number] [address] [place] [address], [place] [address] Sep, [facility] [address] [id number] [address] [place] [address], [place] [address] Sep, [facility] [address] [id number] [address] [place] [address], [place] [address] Sep, [facility] [address] [id number] [address] [place] [address], [place] [address] Sep, [facility] [address] [id number] [address] [place] [address], [place] [address] Sep, [facility] [address] [id number] [address] [place] [address], [place] [address] 05 Sep, 2011 [facility] [address] [id number] [address] [place] [address], [place] [address] 30 Aug, 2011 [facility] [address] [id number] [address] [place] [address], [place] [address] Aug, [facility] [address] [id number] [address] [place] [address], [place] [address] Aug, [facility] [address] [id number] [address] [place] [address], [place] [address] Aug, [facility] [address] [id number] [address] [place] [address], [place] [address] Aug, [facility] [address] [id number] [address] [place] [address], [place] [address] Aug, [facility] [address] [id number] [address] [place] [address], [place] [address] Aug, [facility] [address] [id number] [address] [place] [address] Aug, [facility] [address] [id number] [address] [place] [address], [place] [address] Aug, [facility] [address] [id number] [address] [place] [address], [place] [address] Aug, [facility] [address] [id number] [address] [place] [address], [place] [address] Aug, [facility] [address] [id number] [address] [place] [address] Aug, [facility] [address] [id number] [address] [place] [address] Jul, [facility] [address] [id number] [address] [place] [address] Jul, [facility] [address] [id number] [address] [place] [address], [place] [address] Jul, [facility] [address] [id number] [address] [place] [address] Jul, [facility] [address] [id number] [address] [place] [address] Jul, [facility] [address] [id number] [address] [place] [address] Jul, [facility] [address] [id number] [address] [place] [address] Jul, [facility] [address] [id number] [address] [place] [address] Jul, [facility] [address] [id number] [address] [place] [address] Jul, [facility] [address] [id number] [address] [place] [address] Jul, [facility] [address] [id number] [address] [place] [address] Nov, [facility] [address] [id number] [address] [place] [address] Aug, [facility] [address] [id number] [address] [place] [address] Aug, [facility] [address] [id number] [address] [place] [address] Aug, [facility] [address] [id number] [address] [place] [address] Aug, [facility] [address] [id number] [address] [place] [address] Jul, IMMUNIZATIONS No Known Immunizations SOCIAL HISTORY Never Assessed REASON FOR VISIT PLAN OF CARE VITAL SIGNS MEDICATIONS Unknown Medications RESULTS No Results PROCEDURES Procedure Date Ordered Result Body Site THER/PROPH/DIAG INJ, SC/IM Oct 09, 2014 INSTRUCTIONS MEDICATIONS ADMINISTERED No Known Medications MEDICAL (GENERAL) HISTORY Type Description Date Medical History diabetes Medical History thyroid Surgical History appendix Surgical History gallbladder Surgical History eyes Surgical History hip Surgical History MRI on back and pelvis 06/08 Hospitalization History surgeries Hospitalization History [facility] Suicide attempt by hanging 2015 Hospitalization History [facility] 01/30/2018-02/10/20 08 Hospitalization History [facility] 05/04/18-
--- OUTSIDE RECORDS SUMMARY | 2020-04-04 02:02 | XMS REPORT ---
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 926069120 Problem Disorganized schizophrenia, 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 22785675 Problem Paranoid schizophrenia F20.0 Active 61093188 Problem Borderline personality disorder F60.3 Active 47952650 Problem Paranoid schizophrenia, unspecified condition 295.30 Active 69325372 Problem Schizoaffective disorder, depressive type F25.1 Active 71704011 Problem Bipolar disorder, unspecified 296.80 Active 99622770 Problem Schizoaffective disorder, unspecified F25.9 Active 62076292 Problem Attention deficit hyperactivity disorder (ADHD), inattentive type, 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 67950446 Problem Posttraumatic stress disorder F43.10 Active 98994888 Problem High risk medication use Z79.899 Activ e [id number] ALLERGIES No Information ENCOUNTERS Encounter Location Date Diagnosis [facility] [address] [facility] [id number] [address] [place] [address] May, [facility] [address] [facility] [id number] [address] [place] [address] Apr, Paranoid schizophrenia F20.0 ; Posttraumatic stress disorder F43.10 ; Attention deficit hyperactivity disorder (ADHD), inattentive type, 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 and Borderline personality disorder F60.3 [facility] [address] [facility] [id number] [address] [place] [address] Apr, Paranoid schizophrenia F20.0 [facility] [address] [facility] [id number] [address] [place] [address] Apr, Paranoid schizophrenia F20.0 ; Posttraumatic stress disorder F43.10 ; Attention deficit hyperactivity disorder (ADHD), inattentive type, 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 and Borderline personality disorder F60.3 [facility] [address] [facility] [id number] [address] [place] [address] Mar, Paranoid schizophrenia F20.0 [facility] [address] [id number] [address] [place] [address] Mar, Paranoid schizophrenia F20.0 ; Posttraumatic stress disorder F43.10 ; Attention deficit hyperactivity disorder (ADHD), inattentive type, 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 and Borderline personality disorder F60.3 [facility] [address] [facility] [id number] [address] [place] [address] February, Paranoid schizophrenia F20.0 [facility] [address] [facility] [id number] [address] [place] [address] Jan, Paranoid schizophrenia F20.0 ; Posttraumatic stress disorder F43.10 ; Attention deficit hyperactivity disorder (ADHD), inattentive type, 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 and Borderline personality disorder F60.3 [facility] [address] [facility] [id number] [address] [place] [address] Dec, Paranoid schizophrenia F20.0 ; Posttraumatic stress disorder F43.10 ; Attention deficit hyperactivity disorder (ADHD), inattentive type, 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 and Borderline personality disorder F60.3 [facility] [address] [id number] [address] [place] [address] Dec, Paranoid schizophrenia F20.0 ; Posttraumatic stress disorder F43.10 ; Attention deficit hyperactivity disorder (ADHD), inattentive type, 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 and Borderline personality disorder F60.3 [facility] [address] [facility] [id number] [address] [place] [address] Oct, Paranoid schizophrenia F20.0 ; Posttraumatic stress disorder F43.10 ; Attention deficit hyperactivity disorder (ADHD), inattentive type, 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 and Borderline personality disorder F60.3 [facility] [address] [id number] [address] [place] [address] Oct, Paranoid schizophrenia F20.0 ; Posttraumatic stress disorder F43.10 ; Attention deficit hyperactivity disorder (ADHD), inattentive type, 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 and Borderline personality disorder F60.3 [facility] [address] [id number] [address] [place] [address] Aug, [facility] [address] [id number] [address] [place] [address] Aug, Paranoid schizophrenia F20.0 ; Posttraumatic stress disorder F43.10 ; Attention deficit hyperactivity disorder (ADHD), inattentive type, 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 and Borderline personality disorder F60.3 [facility] [address] [id number] [address] [place] [address] Jul, Dry skin dermatitis L85.3 [facility] [address] [id number] [address] [place] [address] Jul, [facility] [address] [facility] [id number] [address] [place] [address] Jul, Paranoid schizophrenia F20.0 [facility] [address] [id number] [address] [place] [address] May, Paranoid schizophrenia F20.0 ; Posttraumatic stress disorder F43.10 ; Attention deficit hyperactivity disorder (ADHD), inattentive type, 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 and Borderline personality disorder F60.3 [facility] [address] [id number] [address] [place] [address] May, [facility] [address] [id number] [address] [place] [address] May, Paranoid schizophrenia F20.0 [facility] [address] [id number] [address] [place] [address] May, Paranoid schizophrenia F20.0 ; Posttraumatic stress disorder F43.10 ; Attention deficit hyperactivity disorder (ADHD), inattentive type, 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 and Borderline personality disorder F60.3 [facility] [address] [id number] [address] [place] [address] Apr, [facility] [address] [id number] [address] [place] [address] Apr, Paranoid schizophrenia F20.0 ; Posttraumatic stress disorder F43.10 ; Attention deficit hyperactivity disorder (ADHD), inattentive type, 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 and Borderline personality disorder F60.3 [facility] [address] [id number] [address] [place] [address] Apr, [facility] [address] [id number] [address] [place] [address] Apr, Schizoaffective disorder, de pressive type F25.1 and Borderline personality disorder F60.3 [facility] [address] [id number] [address] [place] [address] Apr, Paranoid schizophrenia F20.0 ; Posttraumatic stress disorder F43.10 ; Attention deficit hyperactivity disorder (ADHD), inattentive type, 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 and Borderline personality disorder F60.3 [facility] [address] [id number] [address] [place] [address] Apr, [facility] [address] [id number] [address] [place] [address] Apr, Paranoid schizophrenia F20.0 ; Posttraumatic stress disorder F43.10 ; Attention deficit hyperactivity disorder (ADHD), inattentive type, 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 and Borderline personality disorder F60.3 [facility] [address] [id number] [address] [place] [address] Apr, [facility] [address] [id number] [address] [place] [address] Mar, Paranoid schizophrenia F20.0 [facility] [address] [id number] [address] [place] [address] Mar, [facility] [address] [id number] [address] [place] [address] Mar, Paranoid schizophrenia F20.0 ; Posttraumatic stress disorder F43.10 ; Attention deficit hyperactivity disorder (ADHD), inattentive type, 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 and Borderline personality disorder F60.3 [facility] [address] [id number] [address] [place] [address] February, Paranoid schizophrenia F20.0 [facility] [address] [id number] [address] [place] [address] February, Paranoid schizophrenia F20.0 ; Posttraumatic stress disorder F43.10 ; Attention deficit hyperactivity disorder (ADHD), inattentive type, 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 and Borderline personality disorder F60.3 [facility] [address] [facility] [id number] [address] [place] [address] February, Paranoid schizophrenia F20.0 ; Posttraumatic stress disorder F43.10 ; Attention deficit hyperactivity disorder (ADHD), inattentive type, 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 and Borderline personality disorder F60.3 [facility] [address] [id number] [address] [place] [address] February, [facility] [address] [facility] [id number] [address] [place] [phone] February, Paranoid schizophrenia F20.0 [facility] [address] [facility] [id number] [address] [place] [address] February, Paranoid schizophrenia F20.0 [facility] [address] [id number] [address] [place] [address] February, Paranoid schizophrenia F20.0 ; Posttraumatic stress disorder F43.10 ; Attention deficit hyperactivity disorder (ADHD), inattentive type, 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 and Borderline personality disorder F60.3 [facility] [address] [id number] [address] [place] [address] Jan, Paranoid schizophrenia F20.0 ; Posttraumatic stress disorder F43.10 ; Attention deficit hyperactivity disorder (ADHD), inattentive type, 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 and Borderline personality disorder F60.3 [facility] [address] [id number] [address] [place] [address] Jan, Paranoid schizophrenia F20.0 [facility] [address] [id number] [address] [place] [address] Jan, Paranoid schizophrenia F20.0 [facility] [address] [id number] [address] [place] [address] Jan, Paranoid schizophrenia F20.0 ; Posttraumatic stress disorder F43.10 ; Attention deficit hyperactivity disorder (ADHD), inattentive type, 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 and Borderline personality disorder F60.3 [facility] [address] [id number] [address] [place] [address] Dec, [facility] [address] [id number] [address] [place] [address] Nov, Paranoid schizophrenia F20.0 ; Posttraumatic stress disorder F43.10 ; Attention deficit hyperactivity disorder (ADHD), inattentive type, 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 and Borderline personality disorder F60.3 [facility] [address] [id number] [address] [place] [address] Nov, [facility] [address] [id number] [address] [place] [address] Oct, Paranoid schizophrenia F20.0 [facility] [address] [id number] [address] [place] [address] Oct, Paranoid schizophrenia F20.0 ; Posttraumatic stress disorder F43.10 ; Attention deficit hyperactivity disorder (ADHD), inattentive type, 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 ; Borderline personality disorder F60.3 and 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 [facility] [address] [id number] [address] [place] [address] Oct, [facility] [address] [id number] [address] [place] [address] Oct, [facility] [address] [id number] [address] [place] [address] Sep, [facility] [address] [facility] [id number] [address] [place] [address] Sep, Paranoid schizophrenia F20.0 ; Posttraumatic stress disorder F43.10 ; Attention deficit hyperactivity disorder (ADHD), inattentive type, 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 and Borderline personality disorder F60.3 [facility] [address] [id number] [address] [place] [address] Sep, Paranoid schizophrenia F20.0 [facility] [address] [id number] [address] [place] [address] Aug, Paranoid schizophrenia F20.0 ; Posttraumatic stress disorder F43.10 ; Attention deficit hyperactivity disorder (ADHD), inattentive type, 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 and Borderline personality disorder F60.3 [facility] [address] [facility] [id number] [address] [place] [address] Aug, Paranoid schizophrenia F20.0 ; Posttraumatic stress disorder F43.10 ; Attention deficit hyperactivity disorder (ADHD), inattentive type, 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 and Borderline personality disorder F60.3 [facility] [address] [facility] [id number] [address] [place] [address] Aug, [facility] [address] [id number] [address] [place] [address] Jul, Paranoid schizophrenia F20.0 ; Posttraumatic stress disorder F43.10 ; Attention deficit hyperactivity disorder (ADHD), inattentive type, 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 and Borderline personality disorder F60.3 [facility] [address] [facility] [id number] [address] [place] [id number] Jul, Paranoid schizophrenia F20.0 [facility] [address] [facility] [id number] [address] [place] [address] Jul, Paranoid schizophrenia F20.0 ; Posttraumatic stress disorder F43.10 ; Attention deficit hyperactivity disorder (ADHD), inattentive type, 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 and Borderline personality disorder F60.3 [facility] [address] [id number] [address] [place] [address] Jun, Paranoid schizophrenia F20.0 ; Posttraumatic stress disorder F43.10 ; Attention deficit hyperactivity disorder (ADHD), inattentive type, 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 and Borderline personality disorder F60.3 [facility] [address] [id number] [address] [place] [address] May, Other terminal press operator (current) dr ug therapy Z79.899 [facility] [address] [id number] [address] [place] [address] May, [facility] [address] [id number] [address] [place] [address] May, [facility] [address] [id number] [address] [place] [address] May, Attention deficit hyperactiv ity disorder (ADHD), inattentive type, mild F90.0 [facility] [address] [id number] [address] [place] [address] May, [facility] [address] [id number] [address] [place] [address] May, Attention deficit hyperactiv ity disorder (ADHD), inattentive type, mild F90.0 [facility] [address] [id number] [address] [place] [address] May, Paranoid schizophrenia F20.0 ; Posttraumatic stress disorder F43.10 ; Attention deficit hyperactivity disorder (ADHD), inattentive type, 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 and 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 [facility] [address] [id number] [address] [place] [address] Apr, Paranoid schizophrenia F20.0 [facility] [address] [id number] [address] [place] [address] Apr, Paranoid schizophrenia F20.0 ; Posttraumatic stress disorder F43.10 and Attention deficit hyperactivity disorder (ADHD), inattentive type, 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 [facility] [address] [id number] [address] [place] [address] February, [facility] [address] [id number] [address] [place] [address] February, Paranoid schizophrenia F20.0 ; Posttraumatic stress disorder F43.10 and Attention deficit hyperactivity disorder (ADHD), inattentive type, 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 [facility] [address] [id number] [address] [place] [address] February, Paranoid schizophrenia F20.0 ; Posttraumatic stress disorder F43.10 and Attention deficit hyperactivity disorder (ADHD), inattentive type, 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 [facility] [address] [id number] [address] [place] [address] Jan, Paranoid schizophrenia F20.0 ; Posttraumatic stress disorder F43.10 and Attention deficit hyperactivity disorder (ADHD), inattentive type, 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 [facility] [address] [id number] [address] [place] [id number] Dec, Dental examination Z01.20 [facility] [address] [id number] [address] [place] [address] [id number] Nov, Dental examination Z01.20 [facility] [address] [id number] [address] [place] [address] [id number] Nov, Dental examination Z01.20 [facility] [address] [id number] [address] [place] [address] [id number] Nov, Dental caries K02.9 [facility] [address] [id number] [address] [place] [address] 13 Nov, 2016 High risk medication use Z79 .899 [facility] [address] [id number] [address] [place] [address] Nov, Paranoid schizophrenia F20.0 ; Posttraumatic stress disorder F43.10 ; Attention deficit hyperactivity disorder (ADHD), inattentive type, 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 and Borderline personality disorder in adult F60.3 [facility] [address] [id number] [address] [place] [id number] 18 Oct, 2016 Dental caries K02.9 [facility] [address] [id number] [address] [place] [address] 05 Sep, 2016 Paranoid schizophrenia F20.0 ; Posttraumatic stress disorder F43.10 and Attention deficit hyperactivity disorder (ADHD), inattentive type, 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 [facility] [address] [id number] [address] [place] [phone] 16 Aug, 2016 Paranoid schizophrenia F20.0 ; Posttraumatic stress disorder F43.10 and Attention deficit hyperactivity disorder (ADHD), inattentive type, 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 [facility] [address] [id number] [address] [place] [phone] Aug, Strep throat J02.0 and Cough R05 [facility] [address] [id number] [address] [place] [address] Aug, [facility] [address] [id number] [address] [place] [address] 24 Jul, 2016 Paranoid schizophrenia F20.0 ; Posttraumatic stress disorder F43.10 and Attention deficit hyperactivity disorder (ADHD), inattentive type, 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 [facility] [address] [id number] [address] [place] [address] Jul, [facility] [address] [id number] [address] [place] [phone] 28 Jun, 2016 Paranoid schizophrenia F20.0 ; Posttraumatic stress disorder F43.10 and Attention deficit hyperactivity disorder (ADHD), inattentive type, 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 [facility] [address] [id number] [address] [place] [id number] 22 Jun, 2016 Dental examination Z01.20 [facility] [address] [id number] [address] [place] [address] 12 Jun, 2016 [facility] [address] [id number] [address] [place] [address] May, Paranoid schizophrenia F20.0 [facility] [address] [id number] [address] [place] [address] May, Paranoid schizophrenia F20.0 ; Posttraumatic stress disorder F43.10 and Attention deficit hyperactivity disorder (ADHD), inattentive type, 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 [facility] [address] [id number] [address] [place] [address] May, [facility] [address] [id number] [address] [place] [address] May, Paranoid schizophrenia F20.0 [facility] [address] [id number] [address] [place] [address] May, [facility] [address] [id number] [address] [place] [address] May, Paranoid schizophrenia F20.0 [facility] [address] [id number] [address] [place] [address] May, Schizoaffective disorder, un specified F25.9 [facility] [address] [id number] [address] [place] [address] May, Schizoaffective disorder, un specified F25.9 [facility] [address] [id number] [address] [place] [address] May, [facility] [address] [id number] [address] [place] [address] May, Paranoid schizophrenia F20.0 [facility] [address] [id number] [address] [place] [address] May, Paranoid schizophrenia F20.0 ; Posttraumatic stress disorder F43.10 and Attention deficit hyperactivity disorder (ADHD), inattentive type, 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 [facility] [address] [id number] [address] [place] [address] Mar, [facility] [address] [id number] [address] [place] [address] Mar, Paranoid schizophrenia F20.0 ; Posttraumatic stress disorder F43.10 and Attention deficit hyperactivity disorder (ADHD), inattentive type, 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 [facility] [address] [id number] [address] [place] [phone] Mar, Paranoid schizophrenia F20.0 [facility] [address] [id number] [address] [place] [address] Mar, Paranoid schizophrenia F20.0 ; Attention deficit hyperactivity disorder (ADHD), inattentive type, 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 and Posttraumatic stress disorder F43.10 [facility] [address] [id number] [address] [place] [address] Mar, [facility] [address] [id number] [address] [place] [phone] Mar, Paranoid schizophrenia F20.0 ; Posttraumatic stress disorder F43.10 and Attention deficit hyperactivity disorder (ADHD), inattentive type, 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 [facility] [address] [id number] [address] [place] [address] February, [facility] [address] [id number] [address] [place] [address] February, [facility] [address] [id number] [address] [place] [phone] February, [facility] [address] [id number] [address] [place] [phone] February, [facility] [address] [id number] [address] [place] [phone] Jan, Paranoid schizophrenia F20.0 [facility] [address] [id number] [address] [place] [id number] Jan, Dental examination Z01.20 [facility] [address] [id number] [address] [place] [id number] Jan, Dental caries K02.9 [facility] [address] [id number] [place] [id number] Jan, Dental examination Z01.20 [facility] [address] [id number] [place] [id number] Dec, Encounter for dental examina tion Z01.20 [facility] [address] [id number] [address] [place] [address] [address] Dec, Paranoid schizophrenia F20.0 [facility] [address] [id number] [address] [place] [id number] Dec, Dental examination Z01.20 [facility] [address] [id number] [address] [place] [address] Dec, [facility] [address] [id number] [address] [place] [address] Dec, Paranoid schizophrenia F20.0 ; Posttraumatic stress disorder F43.10 and Attention deficit hyperactivity disorder (ADHD), inattentive type, 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 [facility] [address] [id number] [address] [place] [address] Nov, Schizoaffective disorder, un specified F25.9 [facility] [address] [id number] [address] [place] [address] Oct, Paranoid schizophrenia F20.0 [facility] [address] [id number] [address] [place] [address] Oct, [facility] [address] [id number] [address] [place] [address] Sep, Paranoid schizophrenia F20.0 ; Posttraumatic stress disorder F43.10 and Attention deficit hyperactivity disorder (ADHD), inattentive type, 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 [facility] [address] [id number] [address] [place] [address] Sep, [facility] [address] [id number] [address] [place] [address] Sep, Paranoid schizophrenia F20.0 ; Posttraumatic stress disorder F43.10 and Attention deficit hyperactivity disorder (ADHD), inattentive type, 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 [facility] [address] [id number] [address] [place] [address] Aug, Paranoid schizophrenia F20.0 [facility] [address] [id number] [address] [place] [address] Aug, [facility] [address] [facility] [id number] [address] [place] [address] Aug, Posttraumatic stress disorde r F43.10 ; Paranoid schizophrenia F20.0 and Attention deficit hyperactivity disorder (ADHD), inattentive type, 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 [facility] [address] [facility] [id number] [address] [place] [address] Jul, Bipolar disorder, unspecifie d F31.9 [facility] [address] [facility] [id number] [address] [place] [address] Jul, [facility] [address] [facility] [id number] [address] [place] [address] Jun, [facility] [address] [facility] [id number] [address] [place] [address] Jun, Schizoaffective disorder, ch ronic 295.72 ; Posttraumatic stress disorder 309.81 and Attention deficit disorder of childhood without mention of hyperactivity 314.00 [facility] [address] [facility] [id number] [address] [place] [address] May, [facility] [address] [id number] [address] [place] [address] May, [facility] [address] [facility] [id number] [address] [place] [address] May, Schizoaffective disorder, ch ronic 295.72 ; Posttraumatic stress disorder 309.81 ; Attention deficit disorder of childhood without mention of hyperactivity 314.00 and Bipolar disorder, unspecified 296.80 [facility] [address] [id number] [address] [place] [address] Apr, Schizoaffective disorder, ch ronic 295.72 [facility] [address] [id number] [address] [place] [address] Apr, [facility] [address] [id number] [address] [place] [address] Apr, Schizoaffective disorder, ch ronic 295.72 ; Posttraumatic stress disorder 309.81 and Attention deficit disorder of childhood without mention of hyperactivity 314.00 [facility] [address] [id number] [address] [place] [address] Mar, Disorganized schizophrenia, 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 [facility] [address] [id number] [address] [place] [address] Mar, [facility] [address] [id number] [address] [place] [address] Mar, [facility] [address] [facility] [id number] [address] [place] [address] Mar, [facility] [address] [id number] [address] [place] [address] Mar, [facility] [address] [facility] [id number] [address] [place] [address] February, Schizoaffective disorder, ch ronic 295.72 [facility] [address] [facility] [id number] [address] [place] [address] February, [facility] [address] [id number] [address] [place] [address] February, Attention 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 ; Posttraumatic stress disorder 309.81 and Schizoaffective disorder, chronic 295.72 [facility] [address] [id number] [address] [place] [address] Jan, [facility] [address] [id number] [address] [place] [address] Jan, [facility] [address] [id number] [address] [place] [address], [place] [address] Jan, [facility] [address] [id number] [address] [place] [address], [place] [address] Dec, [facility] [address] [id number] [address] [place] [address], [place] [address] Dec, [facility] [address] [id number] [address] [place] [address], [place] [address] Dec, [facility] [address] [id number] [address] [place] [address], [place] [address] Dec, [facility] [address] [id number] [address] [place] [address], [place] [address] Dec, [facility] [address] [id number] [address] [place] [address], [place] [address] Dec, [facility] [address] [id number] [address] [place] [address], [place] [address] Dec, [facility] [address] [id number] [address] [place] [address], [place] [address] Dec, [facility] [address] [id number] [address] [place] [address], [place] [address] Nov, [facility] [address] [id number] [address] [place] [address], [place] [address] Nov, [facility] [address] [id number] [address] [place] [address], [place] [address] Nov, [facility] [address] [id number] [address] [place] [address], [place] [address] Nov, [facility] [address] [id number] [address] [place] [address], [place] [address] Nov, [facility] [address] [id number] [address] [place] [address], [place] [address] Nov, 2014 [facility] [address] [id number] [address] [place] [address], [place] [address] Nov, [facility] [address] [id number] [address] [place] [address], [place] [address] Nov, [facility] [address] [id number] [address] [place] [address], [place] [address] Nov, [facility] [address] [id number] [address] [place] [address], [place] [address] Nov, [facility] [address] [id number] [address] [place] [address], [place] [address] Oct, [facility] [address] [id number] [address] [place] [address], [place] [address] Oct, [facility] [address] [id number] [address] [place] [address], [place] [address] Oct, [facility] [address] [id number] [address] [place] [address], [place] [address] Oct, [facility] [address] [id number] [address] [place] [address], [place] [address] Oct, [facility] [address] [id number] [address] [place] [address], [place] [address] Oct, [facility] [address] [id number] [address] [place] [address], [place] [address] Oct, [facility] [address] [id number] [address] [place] [address], [place] [address] Sep, [facility] [address] [id number] [address] [place] [address], [place] [address] Sep, [facility] [address] [id number] [address] [place] [address], [place] [address] Sep, [facility] [address] [id number] [address] [place] [address], [place] [address] Sep, [facility] [address] [id number] [address] [place] [address], [place] [address] Aug, [facility] [address] [id number] [address] [place] [address], [place] [address] Aug, [facility] [address] [id number] [address] [place] [address], [place] [address] Aug, [facility] [address] [id number] [address] [place] [address], [place] [address] Aug, [facility] [address] [id number] [address] [place] [address], [place] [address] Aug, [facility] [address] [id number] [address] [place] [address], [place] [address] Aug, [facility] [address] [id number] [address] [place] [address], [place] [address] Jul, [facility] [address] [id number] [address] [place] [address], [place] [address] Jul, [facility] [address] [id number] [address] [place] [address], [place] [address] Jul, [facility] [address] [id number] [address] [place] [address], [place] [address] Jul, [facility] [address] [id number] [address] [place] [address], [place] [address] Jul, [facility] [address] [id number] [address] [place] [address], [place] [address] Jul, [facility] [address] [id number] [address] [place] [address], [place] [address] 27 Jun, 2014 [facility] [address] [id number] [address] [place] [address], [place] [address] 27 Jun, 2014 [facility] [address] [id number] [address] [place] [address], [place] [address] 26 Jun, 2014 [facility] [address] [id number] [address] [place] [address], [place] [address] 26 Jun, 2014 [facility] [address] [id number] [address] [place] [address], [place] [address] Jun, [facility] [address] [id number] [address] [place] [address], [place] [address] Jun, 2013 [facility] [address] [id number] [address] [place] [address], [place] [address] Jun, [facility] [address] [id number] [address] [place] [address], [place] [address] Jun, 2013 [facility] [address] [id number] [address] [place] [address], [place] [address] Jun, 2013 [facility] [address] [id number] [address] [place] [address], [place] [address] Jun, [facility] [address] [id number] [address] [place] [address], [place] [address] Jun, [facility] [address] [id number] [address] [place] [address], [place] [address] May, [facility] [address] [id number] [address] [place] [address], [place] [address] May, [facility] [address] [id number] [address] [place] [address], [place] [address] May, [facility] [address] [id number] [address] [place] [address], [place] [address] May, [facility] [address] [id number] [address] [place] [address], [place] [address] May, [facility] [address] [id number] [address] [place] [address], [place] [address] May, [facility] [address] [id number] [address] [place] [address], [place] [address] May, [facility] [address] [id number] [address] [place] [address], [place] [address] May, [facility] [address] [id number] [address] [place] [address], [place] [address] May, [facility] [address] [id number] [facility] [place] [address] May, [facility] [address] [id number] [facility] [place] [address] Apr, [facility] [address] [id number] [facility] [place] [address] Apr, [facility] [address] [id number] [address] [place] [address], [place] [address] Apr, [facility] [address] [id number] [address] [place] [address], [place] [address] Apr, [facility] [address] [id number] [address] [place] [address], [place] [address] Apr, [facility] [address] [id number] [address] [place] [address], [place] [address] Apr, [facility] [address] [id number] [address] [place] [address], [place] [address] Apr, [facility] [address] [id number] [address] [place] [address], [place] [address] Apr, [facility] [address] [id number] [address] [place] [address], [place] [address] Apr, [facility] [address] [id number] [address] [place] [address], [place] [address] Apr, [facility] [address] [id number] [address] [place] [address], [place] [address] Mar, [facility] [address] [id number] [address] [place] [address], [place] [address] Mar, [facility] [address] [id number] [address] [place] [address], [place] [address] Mar, [facility] [address] [id number] [address] [place] [address], [place] [address] Mar, [facility] [address] [id number] [address] [place] [address], [place] [address] Mar, [facility] [address] [id number] [address] [place] [address], [place] [address] 18 Mar, 2014 [facility] [address] [id number] [address] [place] [address], [place] [address] 18 Mar, 2014 [facility] [address] [id number] [address] [place] [address], [place] [address] 16 Mar, 2014 [facility] [address] [id number] [address] [place] [address], [place] [address] 16 Mar, 2014 [facility] [address] [id number] [address] [place] [address], [place] [address] Mar, [facility] [address] [id number] [address] [place] [address], [place] [address] Mar, [facility] [address] [id number] [address] [place] [address], [place] [address] Mar, [facility] [address] [id number] [address] [place] [address], [place] [address] Mar, [facility] [address] [id number] [address] [place] [address], [place] [address] Mar, [facility] [address] [id number] [address] [place] [address], [place] [address] Mar, [facility] [address] [id number] [address] [place] [address], [place] [address] Mar, [facility] [address] [id number] [address] [place] [address] Mar, [facility] [address] [id number] [address] [place] [address], [place] [address] Mar, [facility] [address] [id number] [address] [place] [address], [place] [address] 04 Mar, 2014 [facility] [address] [id number] [address] [place] [address], [place] [address] 04 Mar, 2014 [facility] [address] [id number] [address] [place] [address], [place] [address] February, [facility] [address] [id number] [address] [place] [address], [place] [address] February, [facility] [address] [id number] [address] [place] [address], [place] [address] February, [facility] [address] [id number] [address] [place] [address], [place] [address] February, [facility] [address] [id number] [address] [place] [address], [place] [address] February, [facility] [address] [id number] [address] [place] [address], [place] [address] February, [facility] [address] [id number] [address] [place] [address], [place] [address] February, [facility] [address] [id number] [address] [place] [address], [place] [address] February, [facility] [address] [id number] [address] [place] [address], [place] [address] February, [facility] [address] [id number] [address] [place] [address], [place] [address] February, [facility] [address] [id number] [address] [place] [address], [place] [address] February, [facility] [address] [id number] [address] [place] [address], [place] [address] February, [facility] [address] [id number] [address] [place] [address], [place] [address] February, [facility] [address] [id number] [address] [place] [address], [place] [address] February, [facility] [address] [id number] [address] [place] [address], [place] [address] February, [facility] [address] [id number] [address] [place] [address], [place] [address] February, [facility] [address] [id number] [address] [place] [address], [place] [address] February, [facility] [address] [id number] [address] [place] [address], [place] [address] February, [facility] [address] [id number] [address] [place] [address], [place] [address] February, [facility] [address] [id number] [address] [place] [address], [place] [address] February, [facility] [address] [id number] [address] [place] [address], [place] [address] February, [facility] [address] [id number] [address] [place] [address], [place] [address] Jan, [facility] [address] [id number] [address] [place] [address], [place] [address] Jan, [facility] [address] [id number] [address] [place] [address], [place] [address] Jan, [facility] [address] [id number] [address] [place] [address], [place] [address] Jan, [facility] [address] [id number] [address] [place] [address], [place] [address] Jan, [facility] [address] [id number] [address] [place] [address], [place] [address] Jan, [facility] [address] [id number] [address] [place] [address], [place] [address] Jan, [facility] [address] [id number] [address] [place] [address], [place] [address] Jan, [facility] [address] [id number] [address] [place] [address], [place] [address] Dec, [facility] [address] [id number] [address] [place] [address], [place] [address] Dec, [facility] [address] [id number] [address] [place] [address], [place] [address] 20 Dec, 2013 [facility] [address] [id number] [facility] [place] [address] 19 Dec, 2013 [facility] [address] [id number] [address] [place] [address], [place] [address] 19 Dec, 2013 [facility] [address] [id number] [address] [place] [address], [place] [address] 15 Dec, 2013 [facility] [address] [id number] [address] [place] [address], [place] [address] 15 Dec, 2013 [facility] [address] [id number] [address] [place] [address], [place] [address] 11 Dec, 2013 [facility] [address] [id number] [address] [place] [address], [place] [address] 10 Dec, 2013 [facility] [address] [id number] [address] [place] [address], [place] [address] 10 Dec, 2013 [facility] [address] [id number] [address] [place] [address], [place] [address] 18 Nov, 2013 [facility] [address] [id number] [address] [place] [address], [place] [address] 17 Nov, 2013 [facility] [address] [id number] [address] [place] [address], [place] [address] 17 Nov, 2013 [facility] [address] [id number] [address] [place] [address], [place] [address] 05 Nov, 2013 [facility] [address] [id number] [address] [place] [address], [place] [address] Nov, [facility] [address] [id number] [address] [place] [address], [place] [address] Oct, [facility] [address] [id number] [address] [place] [address], [place] [address] Oct, [facility] [address] [id number] [address] [place] [address], [place] [address] 16 Oct, 2013 [facility] [address] [id number] [address] [place] [address], [place] [address] Sep, [facility] [address] [id number] [address] [place] [address], [place] [address] Sep, [facility] [address] [id number] [address] [place] [address], [place] [address] Sep, [facility] [address] [id number] [address] [place] [address], [place] [address] Sep, [facility] [address] [id number] [address] [place] [address], [place] [address] Aug, [facility] [address] [id number] [address] [place] [address], [place] [address] Aug, [facility] [address] [id number] [address] [place] [address], [place] [address] Jul, [facility] [address] [id number] [address] [place] [address], [place] [address] Jul, [facility] [address] [id number] [address] [place] [address], [place] [address] Jul, [facility] [address] [id number] [address] [place] [address], [place] [address] Jul, [facility] [address] [id number] [address] [place] [address], [place] [address] Jul, [facility] [address] [id number] [address] [place] [address], [place] [address] 25 Jun, 2012 [facility] [address] [id number] [address] [place] [address], [place] [address] 25 Sep, 2012 [facility] [address] [id number] [address] [place] [address], [place] [address] 19 Sep, 2012 [facility] [address] [id number] [address] [place] [address], [place] [address] 18 Sep, 2012 [facility] [address] [id number] [address] [place] [address], [place] [address] 16 Jun, 2013 [facility] [address] [id number] [address] [place] [address], [place] [address] 12 Jun, 2013 [facility] [address] [id number] [address] [place] [address], [place] [address] Jun, [facility] [address] [id number] [address] [place] [address], [place] [address] May, [facility] [address] [id number] [address] [place] [address], [place] [address] May, [facility] [address] [id number] [address] [place] [address], [place] [address] Apr, [facility] [address] [id number] [address] [place] [address], [place] [address] Apr, [facility] [address] [id number] [address] [place] [address], [place] [address] Apr, [facility] [address] [id number] [address] [place] [address], [place] [address] Mar, [facility] [address] [id number] [address] [place] [address], [place] [address] Mar, [facility] [address] [id number] [address] [place] [address], [place] [address] February, [facility] [address] [id number] [address] [place] [address], [place] [address] February, [facility] [address] [id number] [address] [place] [address], [place] [address] February, [facility] [address] [id number] [address] [place] [address], [place] [address] February, [facility] [address] [id number] [address] [place] [address], [place] [address] Jan, [facility] [address] [id number] [address] [place] [address], [place] [address] Jan, [facility] [address] [id number] [address] [place] [address] 16 Jan, 2013 [facility] [address] [id number] [address] [place] [address], [place] [address] 29 Dec, 2012 [facility] [address] [id number] [address] [place] [address], [place] [address] Dec, [facility] [address] [id number] [address] [place] [address], [place] [address] Dec, [facility] [address] [id number] [address] [place] [address], [place] [address] 08 Dec, 2012 [facility] [address] [id number] [address] [place] [address], [place] [address] Nov, [facility] [address] [id number] [address] [place] [address], [place] [address] Nov, [facility] [address] [id number] [address] [place] [address], [place] [address] Oct, [facility] [address] [id number] [address] [place] [address], [place] [address] Oct, [facility] [address] [id number] [address] [place] [address], [place] [address] Oct, [facility] [address] [id number] [address] [place] [address], [place] [address] Oct, [facility] [address] [id number] [address] [place] [address], [place] [address] Aug, [facility] [address] [id number] [address] [place] [address], [place] [address] Aug, [facility] [address] [id number] [address] [place] [address], [place] [address] Jun, [facility] [address] [id number] [address] [place] [address], [place] [address] May, [facility] [address] [id number] [address] [place] [address], [place] [address] May, [facility] [address] [id number] [address] [place] [address], [place] [address] Apr, [facility] [address] [id number] [address] [place] [address], [place] [address] Apr, [facility] [address] [id number] [address] [place] [address], [place] [address] Apr, [facility] [address] [id number] [address] [place] [address], [place] [address] Mar, [facility] [address] [id number] [address] [place] [address], [place] [address] Mar, [facility] [address] [id number] [address] [place] [address], [place] [address] Mar, [facility] [address] [id number] [address] [place] [address], [place] [address] Mar, [facility] [address] [id number] [address] [place] [address], [place] [address] Mar, [facility] [address] [id number] [address] [place] [address], [place] [address] February, [facility] [address] [id number] [address] [place] [address], [place] [address] February, [facility] [address] [id number] [address] [place] [address], [place] [address] February, [facility] [address] [id number] [address] [place] [address], [place] [address] February, [facility] [address] [id number] [address] [place] [address], [place] [address] February, [facility] [address] [id number] [address] [place] [address], [place] [address] February, [facility] [address] [id number] [address] [place] [address], [place] [address] February, [facility] [address] [id number] [address] [place] [address], [place] [address] 25 Jan, 2012 [facility] [address] [id number] [address] [place] [address], [place] [address] 18 Jan, 2012 [facility] [address] [id number] [address] [place] [address], [place] [address] 17 Jan, 2012 [facility] [address] [id number] [address] [place] [address], [place] [address] 13 Jan, 2012 [facility] [address] [id number] [address] [place] [address], [place] [address] 10 Jan, 2012 [facility] [address] [id number] [address] [place] [address], [place] [address] 04 Jan, 2012 [facility] [address] [id number] [address] [place] [address], [place] [address] 30 Dec, 2011 [facility] [address] [id number] [address] [place] [address], [place] [address] 24 Dec, 2011 [facility] [address] [id number] [address] [place] [address], [place] [address] 20 Dec, 2011 [facility] [address] [id number] [address] [place] [address], [place] [address] 13 Dec, 2011 [facility] [address] [id number] [address] [place] [address], [place] [address] 06 Dec, 2011 [facility] [address] [id number] [address] [place] [address], [place] [address] 28 Nov, 2011 [facility] [address] [id number] [address] [place] [address], [place] [address] 27 Nov, 2011 [facility] [address] [id number] [address] [place] [address], [place] [address] 25 Nov, 2011 [facility] [address] [id number] [address] [place] [address], [place] [address] 14 Nov, 2011 [facility] [address] [id number] [address] [place] [address], [place] [address] 10 Nov, 2011 [facility] [address] [id number] [address] [place] [address], [place] [address] Nov, [facility] [address] [id number] [address] [place] [address], [place] [address] Oct, [facility] [address] [id number] [address] [place] [address], [place] [address] Oct, [facility] [address] [id number] [address] [place] [address], [place] [address] Oct, [facility] [address] [id number] [address] [place] [address], [place] [address] Oct, [facility] [address] [id number] [address] [place] [address], [place] [address] Oct, [facility] [address] [id number] [address] [place] [address], [place] [address] Sep, [facility] [address] [id number] [address] [place] [address], [place] [address] Sep, [facility] [address] [id number] [address] [place] [address], [place] [address] Sep, [facility] [address] [id number] [address] [place] [address], [place] [address] 14 Sep, 2011 [facility] [address] [id number] [address] [place] [address], [place] [address] 14 Sep, 2011 [facility] [address] [id number] [address] [place] [address], [place] [address] 13 Sep, 2011 [facility] [address] [id number] [address] [place] [address], [place] [address] 12 Sep, 2011 [facility] [address] [id number] [address] [place] [address], [place] [address] 09 Sep, 2011 [facility] [address] [id number] [address] [place] [address], [place] [address] 05 Sep, 2011 [facility] [address] [id number] [address] [place] [address] [address] Aug, [facility] [address] [id number] [address] [place] [address], [place] [address] Aug, [facility] [address] [id number] [address] [place] [address], [place] [address] Aug, [facility] [address] [id number] [address] [place] [address], [place] [address] Aug, [facility] [address] [id number] [address] [place] [address], [place] [address] Aug, [facility] [address] [id number] [address] [place] [address], [place] [address] Aug, [facility] [address] [id number] [address] [place] [address], [place] [address] Aug, [facility] [address] [id number] [address] [place] [address], [place] [address] Aug, [facility] [address] [id number] [address] [place] [address], [place] [address] Aug, [facility] [address] [id number] [address] [place] [address], [place] [address] Aug, [facility] [address] [id number] [address] [place] [address], [place] [address] Aug, [facility] [address] [id number] [address] [place] [address] Aug, [facility] [address] [id number] [address] [place] [address] Jul, [facility] [address] [id number] [address] [place] [address], [place] [address] Jul, [facility] [address] [id number] [address] [place] [address] Jul, [facility] [address] [id number] [address] [place] [address] Jul, [facility] [address] [id number] [address] [place] [address] Jul, [facility] [address] [id number] [address] [place] [address] Jul, [facility] [address] [id number] [address] [place] [address] Jul, [facility] [address] [id number] [address] [place] [address] Jul, [facility] [address] [id number] [address] [place] [address] Jul, [facility] [address] [id number] [address] [place] [address] Jul, [facility] [address] [id number] [address] [place] [address] Nov, [facility] [address] [id number] [address] [place] [address] Aug, [facility] [address] [id number] [address] [place] [address] Aug, [facility] [address] [id number] [address] [place] [address] Aug, [facility] [address] [id number] [address] [place] [address] Aug, [facility] [address] [id number] [address] [place] [address] Jul, IMMUNIZATIONS No Known Immunizations SOCIAL HISTORY [...] by hanging 2015 Hospitalization History [facility] 01/30/2018-02/10/20 08 Hospitalization History [facility] 05/04/18-
--- OUTSIDE RECORDS SUMMARY | 2020-04-04 02:02 | XMS REPORT ---
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 693005931 Problem Disorganized schizophrenia, 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 03113445 Problem Paranoid schizophrenia F20.0 Active 26779836 Problem Borderline personality disorder F60.3 Active 71494576 Problem Paranoid schizophrenia, unspecified condition 295.30 Active 71367558 Problem Schizoaffective disorder, depressive type F25.1 Active 39029545 Problem Bipolar disorder, unspecified 296.80 Active 78991994 Problem Schizoaffective disorder, unspecified F25.9 Active 44852126 Problem Attention deficit hyperactivity disorder (ADHD), inattentive type, 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 88841533 Problem Posttraumatic stress disorder F43.10 Active 73170376 Problem High risk medication use Z79.899 Activ e [id number] ALLERGIES No Information ENCOUNTERS Encounter Location Date Diagnosis [facility] [address] [facility] [id number] [address] [place] [address] May, [facility] [address] [facility] [id number] [address] [place] [address] Apr, Paranoid schizophrenia F20.0 ; Posttraumatic stress disorder F43.10 ; Attention deficit hyperactivity disorder (ADHD), inattentive type, 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 and Borderline personality disorder F60.3 [facility] [address] [facility] [id number] [address] [place] [address] Apr, Paranoid schizophrenia F20.0 [facility] [address] [facility] [id number] [address] [place] [address] Apr, Paranoid schizophrenia F20.0 ; Posttraumatic stress disorder F43.10 ; Attention deficit hyperactivity disorder (ADHD), inattentive type, 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 and Borderline personality disorder F60.3 [facility] [address] [facility] [id number] [address] [place] [address] Mar, Paranoid schizophrenia F20.0 [facility] [address] [id number] [address] [place] [address] Mar, Paranoid schizophrenia F20.0 ; Posttraumatic stress disorder F43.10 ; Attention deficit hyperactivity disorder (ADHD), inattentive type, 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 and Borderline personality disorder F60.3 [facility] [address] [facility] [id number] [address] [place] [address] February, Paranoid schizophrenia F20.0 [facility] [address] [facility] [id number] [address] [place] [address] Jan, Paranoid schizophrenia F20.0 ; Posttraumatic stress disorder F43.10 ; Attention deficit hyperactivity disorder (ADHD), inattentive type, 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 and Borderline personality disorder F60.3 [facility] [address] [facility] [id number] [address] [place] [address] Dec, Paranoid schizophrenia F20.0 ; Posttraumatic stress disorder F43.10 ; Attention deficit hyperactivity disorder (ADHD), inattentive type, 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 and Borderline personality disorder F60.3 [facility] [address] [id number] [address] [place] [address] Dec, Paranoid schizophrenia F20.0 ; Posttraumatic stress disorder F43.10 ; Attention deficit hyperactivity disorder (ADHD), inattentive type, 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 and Borderline personality disorder F60.3 [facility] [address] [facility] [id number] [address] [place] [address] Oct, Paranoid schizophrenia F20.0 ; Posttraumatic stress disorder F43.10 ; Attention deficit hyperactivity disorder (ADHD), inattentive type, 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 and Borderline personality disorder F60.3 [facility] [address] [id number] [address] [place] [address] Oct, Paranoid schizophrenia F20.0 ; Posttraumatic stress disorder F43.10 ; Attention deficit hyperactivity disorder (ADHD), inattentive type, 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 and Borderline personality disorder F60.3 [facility] [address] [id number] [address] [place] [address] Aug, [facility] [address] [id number] [address] [place] [address] Aug, Paranoid schizophrenia F20.0 ; Posttraumatic stress disorder F43.10 ; Attention deficit hyperactivity disorder (ADHD), inattentive type, 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 and Borderline personality disorder F60.3 [facility] [address] [id number] [address] [place] [address] Jul, Dry skin dermatitis L85.3 [facility] [address] [id number] [address] [place] [address] Jul, [facility] [address] [facility] [id number] [address] [place] [address] Jul, Paranoid schizophrenia F20.0 [facility] [address] [id number] [address] [place] [address] May, Paranoid schizophrenia F20.0 ; Posttraumatic stress disorder F43.10 ; Attention deficit hyperactivity disorder (ADHD), inattentive type, 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 and Borderline personality disorder F60.3 [facility] [address] [id number] [address] [place] [address] May, [facility] [address] [id number] [address] [place] [address] May, Paranoid schizophrenia F20.0 [facility] [address] [id number] [address] [place] [address] May, Paranoid schizophrenia F20.0 ; Posttraumatic stress disorder F43.10 ; Attention deficit hyperactivity disorder (ADHD), inattentive type, 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 and Borderline personality disorder F60.3 [facility] [address] [id number] [address] [place] [address] Apr, [facility] [address] [id number] [address] [place] [address] Apr, Paranoid schizophrenia F20.0 ; Posttraumatic stress disorder F43.10 ; Attention deficit hyperactivity disorder (ADHD), inattentive type, 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 and Borderline personality disorder F60.3 [facility] [address] [id number] [address] [place] [address] Apr, [facility] [address] [id number] [address] [place] [address] Apr, Schizoaffective disorder, de pressive type F25.1 and Borderline personality disorder F60.3 [facility] [address] [id number] [address] [place] [address] Apr, Paranoid schizophrenia F20.0 ; Posttraumatic stress disorder F43.10 ; Attention deficit hyperactivity disorder (ADHD), inattentive type, 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 and Borderline personality disorder F60.3 [facility] [address] [id number] [address] [place] [address] Apr, [facility] [address] [id number] [address] [place] [address] Apr, Paranoid schizophrenia F20.0 ; Posttraumatic stress disorder F43.10 ; Attention deficit hyperactivity disorder (ADHD), inattentive type, 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 and Borderline personality disorder F60.3 [facility] [address] [id number] [address] [place] [address] Apr, [facility] [address] [id number] [address] [place] [address] Mar, Paranoid schizophrenia F20.0 [facility] [address] [id number] [address] [place] [address] Mar, [facility] [address] [id number] [address] [place] [address] Mar, Paranoid schizophrenia F20.0 ; Posttraumatic stress disorder F43.10 ; Attention deficit hyperactivity disorder (ADHD), inattentive type, 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 and Borderline personality disorder F60.3 [facility] [address] [id number] [address] [place] [address] February, Paranoid schizophrenia F20.0 [facility] [address] [id number] [address] [place] [address] February, Paranoid schizophrenia F20.0 ; Posttraumatic stress disorder F43.10 ; Attention deficit hyperactivity disorder (ADHD), inattentive type, 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 and Borderline personality disorder F60.3 [facility] [address] [facility] [id number] [address] [place] [address] February, Paranoid schizophrenia F20.0 ; Posttraumatic stress disorder F43.10 ; Attention deficit hyperactivity disorder (ADHD), inattentive type, 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 and Borderline personality disorder F60.3 [facility] [address] [id number] [address] [place] [address] February, [facility] [address] [facility] [id number] [address] [place] [address] February, Paranoid schizophrenia F20.0 [facility] [address] [facility] [id number] [address] [place] [address] February, Paranoid schizophrenia F20.0 [facility] [address] [id number] [address] [place] [address] February, Paranoid schizophrenia F20.0 ; Posttraumatic stress disorder F43.10 ; Attention deficit hyperactivity disorder (ADHD), inattentive type, 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 and Borderline personality disorder F60.3 [facility] [address] [id number] [address] [place] [address] Jan, Paranoid schizophrenia F20.0 ; Posttraumatic stress disorder F43.10 ; Attention deficit hyperactivity disorder (ADHD), inattentive type, 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 and Borderline personality disorder F60.3 [facility] [address] [id number] [address] [place] [address] Jan, Paranoid schizophrenia F20.0 [facility] [address] [id number] [address] [place] [address] Jan, Paranoid schizophrenia F20.0 [facility] [address] [id number] [address] [place] [address] Jan, Paranoid schizophrenia F20.0 ; Posttraumatic stress disorder F43.10 ; Attention deficit hyperactivity disorder (ADHD), inattentive type, 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 and Borderline personality disorder F60.3 [facility] [address] [id number] [address] [place] [address] Dec, [facility] [address] [id number] [address] [place] [address] Nov, Paranoid schizophrenia F20.0 ; Posttraumatic stress disorder F43.10 ; Attention deficit hyperactivity disorder (ADHD), inattentive type, 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 and Borderline personality disorder F60.3 [facility] [address] [id number] [address] [place] [address] Nov, [facility] [address] [id number] [address] [place] [address] Oct, Paranoid schizophrenia F20.0 [facility] [address] [id number] [address] [place] [address] Oct, Paranoid schizophrenia F20.0 ; Posttraumatic stress disorder F43.10 ; Attention deficit hyperactivity disorder (ADHD), inattentive type, 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10 ; Attention deficit hyperactivity disorder (ADHD), inattentive type, 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 and Borderline personality disorder F60.3 [facility] [address] [id number] [address] [place] [address] Sep, Paranoid schizophrenia F20.0 [facility] [address] [id number] [address] [place] [address] Aug, Paranoid schizophrenia F20.0 ; Posttraumatic stress disorder F43.10 ; Attention deficit hyperactivity disorder (ADHD), inattentive type, 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 and Borderline personality disorder F60.3 [facility] [address] [facility] [id number] [address] [place] [address] Aug, Paranoid schizophrenia F20.0 ; Posttraumatic stress disorder F43.10 ; Attention deficit hyperactivity disorder (ADHD), inattentive type, 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 and Borderline personality disorder F60.3 [facility] [address] [facility] [id number] [address] [place] [address] Aug, [facility] [address] [id number] [address] [place] [address] Jul, Paranoid schizophrenia F20.0 ; Posttraumatic stress disorder F43.10 ; Attention deficit hyperactivity disorder (ADHD), inattentive type, 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 and Borderline personality disorder F60.3 [facility] [address] [facility] [id number] [address] [place] [address] Jul, Paranoid schizophrenia F20.0 [facility] [address] [facility] [id number] [address] [place] [address] Jul, Paranoid schizophrenia F20.0 ; Posttraumatic stress disorder F43.10 ; Attention deficit hyperactivity disorder (ADHD), inattentive type, 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 and Borderline personality disorder F60.3 [facility] [address] [id number] [address] [place] [address] Jun, Paranoid schizophrenia F20.0 ; Posttraumatic stress disorder F43.10 ; Attention deficit hyperactivity disorder (ADHD), inattentive type, 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 and Borderline personality disorder F60.3 [facility] [address] [id number] [address] [place] [address] May, Other long term care pharmacist (current) dr ug therapy Z79.899 [facility] [address] [id number] [address] [place] [address] May, [facility] [address] [id number] [address] [place] [address] May, [facility] [address] [id number] [address] [place] [address] May, Attention deficit hyperactiv ity disorder (ADHD), inattentive type, mild F90.0 [facility] [address] [id number] [address] [place] [address] May, [facility] [address] [id number] [address] [place] [address] May, Attention deficit hyperactiv ity disorder (ADHD), inattentive type, mild F90.0 [facility] [address] [id number] [address] [place] [address] May, Paranoid schizophrenia F20.0 ; Posttraumatic stress disorder F43.10 ; Attention deficit hyperactivity disorder (ADHD), inattentive type, 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 and Other long term care pharmacist (current) drug therapy Z79.899 [facility] [address] [id number] [address] [place] [address] Apr, Paranoid schizophrenia F20.0 [facility] [address] [id number] [address] [place] [address] Apr, Paranoid schizophrenia F20.0 ; Posttraumatic stress disorder F43.10 and Attention deficit hyperactivity disorder (ADHD), inattentive type, 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 [facility] [address] [id number] [address] [place] [address] February, [facility] [address] [id number] [address] [place] [address] February, Paranoid schizophrenia F20.0 ; Posttraumatic stress disorder F43.10 and Attention deficit hyperactivity disorder (ADHD), inattentive type, 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 [facility] [address] [id number] [address] [place] [address] February, Paranoid schizophrenia F20.0 ; Posttraumatic stress disorder F43.10 and Attention deficit hyperactivity disorder (ADHD), inattentive type, 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 [facility] [address] [id number] [address] [place] [address] Jan, Paranoid schizophrenia F20.0 ; Posttraumatic stress disorder F43.10 and Attention deficit hyperactivity disorder (ADHD), inattentive type, 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 [facility] [address] [id number] [address] [place] [id number] Dec, Dental examination Z01.20 [facility] [address] [id number] [address] [place] [id number] Nov, Dental examination Z01.20 [facility] [address] [id number] [address] [place] [id number] Nov, Dental examination Z01.20 [facility] [address] [id number] [address] [place] [address] [id number] Nov, Dental caries K02.9 [facility] [address] [id number] [address] [place] [address] 13 Nov, 2016 High risk medication use Z79 .899 [facility] [address] [id number] [address] [place] [address] Nov, Paranoid schizophrenia F20.0 ; Posttraumatic stress disorder F43.10 ; Attention deficit hyperactivity disorder (ADHD), inattentive type, 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 and Borderline personality disorder in adult F60.3 [facility] [address] [id number] [address] [place] [id number] 18 Oct, 2016 Dental caries K02.9 [facility] [address] [id number] [address] [place] [address] 05 Sep, 2016 Paranoid schizophrenia F20.0 ; Posttraumatic stress disorder F43.10 and Attention deficit hyperactivity disorder (ADHD), inattentive type, 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 [facility] [address] [id number] [address] [place] [address] 16 Aug, 2016 Paranoid schizophrenia F20.0 ; Posttraumatic stress disorder F43.10 and Attention deficit hyperactivity disorder (ADHD), inattentive type, 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 [facility] [address] [id number] [address] [place] [address] Aug, Strep throat J02.0 and Cough R05 [facility] [address] [id number] [address] [place] [address] Aug, [facility] [address] [id number] [address] [place] [address] 24 Jul, 2016 Paranoid schizophrenia F20.0 ; Posttraumatic stress disorder F43.10 and Attention deficit hyperactivity disorder (ADHD), inattentive type, 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 [facility] [address] [id number] [address] [place] [address] Jul, [facility] [address] [id number] [address] [place] [address] 28 Jun, 2016 Paranoid schizophrenia F20.0 ; Posttraumatic stress disorder F43.10 and Attention deficit hyperactivity disorder (ADHD), inattentive type, 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 [facility] [address] [id number] [address] [place] [address] [id number] 22 Jun, 2016 Dental examination Z01.20 [facility] [address] [id number] [address] [place] [address] 12 Jun, 2016 [facility] [address] [id number] [address] [place] [address] May, Paranoid schizophrenia F20.0 [facility] [address] [id number] [address] [place] [address] May, Paranoid schizophrenia F20.0 ; Posttraumatic stress disorder F43.10 and Attention deficit hyperactivity disorder (ADHD), inattentive type, 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 [facility] [address] [id number] [address] [place] [address] May, [facility] [address] [id number] [address] [place] [address] May, Paranoid schizophrenia F20.0 [facility] [address] [id number] [address] [place] [address] May, [facility] [address] [id number] [address] [place] [address] May, Paranoid schizophrenia F20.0 [facility] [address] [id number] [address] [place] [address] May, Schizoaffective disorder, un specified F25.9 [facility] [address] [id number] [address] [place] [address] May, Schizoaffective disorder, un specified F25.9 [facility] [address] [id number] [address] [place] [address] May, [facility] [address] [id number] [address] [place] [address] May, Paranoid schizophrenia F20.0 [facility] [address] [id number] [address] [place] [address] May, Paranoid schizophrenia F20.0 ; Posttraumatic stress disorder F43.10 and Attention deficit hyperactivity disorder (ADHD), inattentive type, 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 [facility] [address] [id number] [address] [place] [address] Mar, [facility] [address] [id number] [address] [place] [address] Mar, Paranoid schizophrenia F20.0 ; Posttraumatic stress disorder F43.10 and Attention deficit hyperactivity disorder (ADHD), inattentive type, 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 [facility] [address] [id number] [address] [place] [address] Mar, Paranoid schizophrenia F20.0 [facility] [address] [id number] [address] [place] [address] Mar, Paranoid schizophrenia F20.0 ; Attention deficit hyperactivity disorder (ADHD), inattentive type, 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 and Posttraumatic stress disorder F43.10 [facility] [address] [id number] [address] [place] [address] Mar, [facility] [address] [id number] [address] [place] [address] Mar, Paranoid schizophrenia F20.0 ; Posttraumatic stress disorder F43.10 and Attention deficit hyperactivity disorder (ADHD), inattentive type, 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 [facility] [address] [id number] [address] [place] [address] February, [facility] [address] [id number] [address] [place] [address] February, [facility] [address] [id number] [address] [place] [address] February, [facility] [address] [id number] [address] [place] [address] February, [facility] [address] [id number] [address] [place] [address] Jan, Paranoid schizophrenia F20.0 [facility] [address] [id number] [address] [place] [address] [id number] Jan, Dental examination Z01.20 [facility] [address] [id number] [address] [place] [id number] Jan, Dental caries K02.9 [facility] [address] [id number] [place] [id number] Jan, Dental examination Z01.20 [facility] [address] [id number] [place] [id number] Dec, Encounter for dental examina tion Z01.20 [facility] [address] [id number] [address] [place] [address] Dec, Paranoid schizophrenia F20.0 [facility] [address] [id number] [address] [place] [id number] Dec, Dental examination Z01.20 [facility] [address] [id number] [address] [place] [address] Dec, [facility] [address] [id number] [address] [place] [address] Dec, Paranoid schizophrenia F20.0 ; Posttraumatic stress disorder F43.10 and Attention deficit hyperactivity disorder (ADHD), inattentive type, 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 [facility] [address] [id number] [address] [place] [address] Nov, Schizoaffective disorder, un specified F25.9 [facility] [address] [id number] [address] [place] [address] Oct, Paranoid schizophrenia F20.0 [facility] [address] [id number] [address] [place] [address] Oct, [facility] [address] [id number] [address] [place] [address] Sep, Paranoid schizophrenia F20.0 ; Posttraumatic stress disorder F43.10 and Attention deficit hyperactivity disorder (ADHD), inattentive type, 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 [facility] [address] [id number] [address] [place] [address] Sep, [facility] [address] [id number] [address] [place] [address] Sep, Paranoid schizophrenia F20.0 ; Posttraumatic stress disorder F43.10 and Attention deficit hyperactivity disorder (ADHD), inattentive type, 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 [facility] [address] [id number] [address] [place] [address] Aug, Paranoid schizophrenia F20.0 [facility] [address] [id number] [address] [place] [address] Aug, [facility] [address] [facility] [id number] [address] [place] [address] Aug, Posttraumatic stress disorde r F43.10 ; Paranoid schizophrenia F20.0 and Attention deficit hyperactivity disorder (ADHD), inattentive type, 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81 and Attention deficit disorder of childhood without mention of hyperactivity 314.00 [facility] [address] [facility] [id number] [address] [place] [address] May, [facility] [address] [id number] [address] [place] [address] May, [facility] [address] [facility] [id number] [address] [place] [address] May, Schizoaffective disorder, ch ronic 295.72 ; Posttraumatic stress disorder 309.81 ; Attention deficit disorder of childhood without mention of hyperactivity 314.00 and Bipolar disorder, unspecified 296.80 [facility] [address] [id number] [address] [place] [address] Apr, Schizoaffective disorder, ch ronic 295.72 [facility] [address] [id number] [address] [place] [address] Apr, [facility] [address] [id number] [address] [place] [address] Apr, Schizoaffective disorder, ch ronic 295.72 ; Posttraumatic stress disorder 309.81 and Attention deficit disorder of childhood without mention of hyperactivity 314.00 [facility] [address] [id number] [address] [place] [address] Mar, Disorganized schizophrenia, 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 [facility] [address] [id number] [address] [place] [address] Mar, [facility] [address] [id number] [address] [place] [address] Mar, [facility] [address] [facility] [id number] [address] [place] [address] Mar, [facility] [address] [id number] [address] [place] [address] Mar, [facility] [address] [facility] [id number] [address] [place] [address] February, Schizoaffective disorder, ch ronic 295.72 [facility] [address] [facility] [id number] [address] [place] [address] February, [facility] [address] [id number] [address] [place] [address] February, Attention 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 ; Posttraumatic stress disorder 309.81 and Schizoaffective disorder, chronic 295.72 [facility] [address] [id number] [address] [place] [address] Jan, [facility] [address] [id number] [address] [place] [address] Jan, [facility] [address] [id number] [address] [place] [address], [place] [address] Jan, [facility] [address] [id number] [address] [place] [address], [place] [address] Dec, [facility] [address] [id number] [address] [place] [address], [place] [address] Dec, [facility] [address] [id number] [address] [place] [address], [place] [address] Dec, [facility] [address] [id number] [address] [place] [address], [place] [address] Dec, [facility] [address] [id number] [address] [place] [address], [place] [address] Dec, [facility] [address] [id number] [address] [place] [address], [place] [address] Dec, [facility] [address] [id number] [address] [place] [address], [place] [address] Dec, [facility] [address] [id number] [address] [place] [address], [place] [address] Dec, [facility] [address] [id number] [address] [place] [address], [place] [address] Nov, [facility] [address] [id number] [address] [place] [address], [place] [address] Nov, [facility] [address] [id number] [address] [place] [address], [place] [address] Nov, [facility] [address] [id number] [address] [place] [address], [place] [address] Nov, [facility] [address] [id number] [address] [place] [address], [place] [address] Nov, [facility] [address] [id number] [address] [place] [address], [place] [address] Nov, 2014 [facility] [address] [id number] [address] [place] [address], [place] [address] Nov, [facility] [address] [id number] [address] [place] [address], [place] [address] Nov, [facility] [address] [id number] [address] [place] [address], [place] [address] Nov, [facility] [address] [id number] [address] [place] [address], [place] [address] Nov, [facility] [address] [id number] [address] [place] [address], [place] [address] Oct, [facility] [address] [id number] [address] [place] [address], [place] [address] Oct, [facility] [address] [id number] [address] [place] [address], [place] [address] Oct, [facility] [address] [id number] [address] [place] [address], [place] [address] Oct, [facility] [address] [id number] [address] [place] [address], [place] [address] Oct, [facility] [address] [id number] [address] [place] [address], [place] [address] Oct, [facility] [address] [id number] [address] [place] [address], [place] [address] Oct, [facility] [address] [id number] [address] [place] [address], [place] [address] Sep, [facility] [address] [id number] [address] [place] [address], [place] [address] Sep, [facility] [address] [id number] [address] [place] [address], [place] [address] Sep, [facility] [address] [id number] [address] [place] [address], [place] [address] Sep, [facility] [address] [id number] [address] [place] [address], [place] [address] Aug, [facility] [address] [id number] [address] [place] [address], [place] [address] Aug, [facility] [address] [id number] [address] [place] [address], [place] [address] Aug, [facility] [address] [id number] [address] [place] [address], [place] [address] Aug, [facility] [address] [id number] [address] [place] [address], [place] [address] Aug, [facility] [address] [id number] [address] [place] [address], [place] [address] Aug, [facility] [address] [id number] [address] [place] [address], [place] [address] Jul, [facility] [address] [id number] [address] [place] [address], [place] [address] Jul, [facility] [address] [id number] [address] [place] [address], [place] [address] Jul, [facility] [address] [id number] [address] [place] [address], [place] [address] Jul, [facility] [address] [id number] [address] [place] [address], [place] [address] Jul, [facility] [address] [id number] [address] [place] [address], [place] [address] Jul, [facility] [address] [id number] [address] [place] [address], [place] [address] 27 Jun, 2014 [facility] [address] [id number] [address] [place] [address], [place] [address] 27 Jun, 2014 [facility] [address] [id number] [address] [place] [address], [place] [address] 26 Jun, 2014 [facility] [address] [id number] [address] [place] [address], [place] [address] 26 Jun, 2014 [facility] [address] [id number] [address] [place] [address], [place] [address] Jun, [facility] [address] [id number] [address] [place] [address], [place] [address] Jun, 2013 [facility] [address] [id number] [address] [place] [address], [place] [address] Jun, [facility] [address] [id number] [address] [place] [address], [place] [address] Jun, 2013 [facility] [address] [id number] [address] [place] [address], [place] [address] Jun, 2013 [facility] [address] [id number] [address] [place] [address], [place] [address] Jun, [facility] [address] [id number] [address] [place] [address], [place] [address] Jun, [facility] [address] [id number] [address] [place] [address], [place] [address] May, [facility] [address] [id number] [address] [place] [address], [place] [address] May, [facility] [address] [id number] [address] [place] [address], [place] [address] May, [facility] [address] [id number] [address] [place] [address], [place] [address] May, [facility] [address] [id number] [address] [place] [address], [place] [address] May, [facility] [address] [id number] [address] [place] [address], [place] [address] May, [facility] [address] [id number] [address] [place] [address], [place] [address] May, [facility] [address] [id number] [address] [place] [address], [place] [address] May, [facility] [address] [id number] [address] [place] [address], [place] [address] May, [facility] [address] [id number] [address] [place] [address] May, [facility] [address] [id number] [address] [place] [address] Apr, [facility] [address] [id number] [address] [address] Apr, [facility] [address] [id number] [address] [place] [address], [place] [address] Apr, [facility] [address] [id number] [address] [place] [address], [place] [address] Apr, [facility] [address] [id number] [address] [place] [address], [place] [address] Apr, [facility] [address] [id number] [address] [place] [address], [place] [address] Apr, [facility] [address] [id number] [address] [place] [address], [place] [address] Apr, [facility] [address] [id number] [address] [place] [address], [place] [address] Apr, [facility] [address] [id number] [address] [place] [address], [place] [address] Apr, [facility] [address] [id number] [address] [place] [address], [place] [address] Apr, [facility] [address] [id number] [address] [place] [address], [place] [address] Mar, [facility] [address] [id number] [address] [place] [address], [place] [address] Mar, [facility] [address] [id number] [address] [place] [address], [place] [address] Mar, [facility] [address] [id number] [address] [place] [address], [place] [address] Mar, [facility] [address] [id number] [address] [place] [address], [place] [address] Mar, [facility] [address] [id number] [address] [place] [address], [place] [address] 18 Mar, 2014 [facility] [address] [id number] [address] [place] [address], [place] [address] 18 Mar, 2014 [facility] [address] [id number] [address] [place] [address], [place] [address] 16 Mar, 2014 [facility] [address] [id number] [address] [place] [address], [place] [address] 16 Mar, 2014 [facility] [address] [id number] [address] [place] [address], [place] [address] Mar, [facility] [address] [id number] [address] [place] [address], [place] [address] Mar, [facility] [address] [id number] [address] [place] [address], [place] [address] Mar, [facility] [address] [id number] [address] [place] [address], [place] [address] Mar, [facility] [address] [id number] [address] [place] [address], [place] [address] Mar, [facility] [address] [id number] [address] [place] [address], [place] [address] Mar, [facility] [address] [id number] [address] [place] [address], [place] [address] Mar, [facility] [address] [id number] [address] [place] [address] Mar, [facility] [address] [id number] [address] [place] [address], [place] [address] Mar, [facility] [address] [id number] [address] [place] [address], [place] [address] 04 Mar, 2014 [facility] [address] [id number] [address] [place] [address], [place] [address] 04 Mar, 2014 [facility] [address] [id number] [address] [place] [address], [place] [address] February, [facility] [address] [id number] [address] [place] [address], [place] [address] February, [facility] [address] [id number] [address] [place] [address], [place] [address] February, [facility] [address] [id number] [address] [place] [address], [place] [address] February, [facility] [address] [id number] [address] [place] [address], [place] [address] February, [facility] [address] [id number] [address] [place] [address], [place] [address] February, [facility] [address] [id number] [address] [place] [address], [place] [address] February, [facility] [address] [id number] [address] [place] [address], [place] [address] February, [facility] [address] [id number] [address] [place] [address], [place] [address] February, [facility] [address] [id number] [address] [place] [address], [place] [address] February, [facility] [address] [id number] [address] [place] [address], [place] [address] February, [facility] [address] [id number] [address] [place] [address], [place] [address] February, [facility] [address] [id number] [address] [place] [address], [place] [address] February, [facility] [address] [id number] [address] [place] [address], [place] [address] February, [facility] [address] [id number] [address] [place] [address], [place] [address] February, [facility] [address] [id number] [address] [place] [address], [place] [address] February, [facility] [address] [id number] [address] [place] [address], [place] [address] February, [facility] [address] [id number] [address] [place] [address], [place] [address] February, [facility] [address] [id number] [address] [place] [address], [place] [address] February, [facility] [address] [id number] [address] [place] [address], [place] [address] February, [facility] [address] [id number] [address] [place] [address], [place] [address] February, [facility] [address] [id number] [address] [place] [address], [place] [address] Jan, [facility] [address] [id number] [address] [place] [address], [place] [address] Jan, [facility] [address] [id number] [address] [place] [address], [place] [address] Jan, [facility] [address] [id number] [address] [place] [address], [place] [address] Jan, [facility] [address] [id number] [address] [place] [address], [place] [address] Jan, [facility] [address] [id number] [address] [place] [address], [place] [address] Jan, [facility] [address] [id number] [address] [place] [address], [place] [address] Jan, [facility] [address] [id number] [address] [place] [address], [place] [address] Jan, [facility] [address] [id number] [address] [place] [address], [place] [address] Dec, [facility] [address] [id number] [address] [place] [address], [place] [address] Dec, [facility] [address] [id number] [address] [place] [address], [place] [address] 20 Dec, 2013 [facility] [address] [id number] [address] [place] [address] 19 Dec, 2013 [facility] [place] [facility] [address] [id number] [address] [place] [address], [place] [address] 19 Dec, 2013 [facility] [place] [facility] [address] [id number] [address] [place] [address], [place] [address] 15 Dec, 2013 [facility] [place] [facility] [address] [id number] [address] [place] [address], [place] [address] 15 Dec, 2013 [facility] [place] [facility] [address] [id number] [address] [place] [address], [place] [address] 11 Dec, 2013 [facility] [place] [facility] [address] [id number] [address] [place] [address], [place] [address] 10 Dec, 2013 [facility] [place] [facility] [address] [id number] [address] [place] [address], [place] [address] 10 Dec, 2013 [facility] [place] [facility] [address] [id number] [address] [place] [address], [place] [address] 18 Nov, 2013 [facility] [place] [facility] [address] [id number] [address] [place] [address], [place] [address] 17 Nov, 2013 [facility] [place] [facility] [address] [id number] [address] [place] [address], [place] [address] 17 Nov, 2013 [facility] [place] [facility] [address] [id number] [address] [place] [address], [place] [address] 05 Nov, 2013 [facility] [place] [facility] [address] [id number] [address] [place] [address], [place] [address] Nov, [facility] [place] [facility] [address] [id number] [address] [place] [address], [place] [address] Oct, [facility] [place] [facility] [address] [id number] [address] [place] [address], [place] [address] Oct, [facility] [place] [facility] [address] [id number] [address] [place] [address], [place] [address] 16 Oct, 2013 [facility] [place] [facility] [address] [id number] [address] [place] [address], [place] [address] Sep, [facility] [address] [id number] [address] [place] [address], [place] [address] Sep, [facility] [address] [id number] [address] [place] [address], [place] [address] Sep, [facility] [address] [id number] [address] [place] [address], [place] [address] Sep, [facility] [address] [id number] [address] [place] [address], [place] [address] Aug, [facility] [address] [id number] [address] [place] [address], [place] [address] Aug, [facility] [address] [id number] [address] [place] [address], [place] [address] Jul, [facility] [address] [id number] [address] [place] [address], [place] [address] Jul, [facility] [address] [id number] [address] [place] [address], [place] [address] Jul, [facility] [address] [id number] [address] [place] [address], [place] [address] Jul, [facility] [address] [id number] [address] [place] [address], [place] [address] Jul, [facility] [address] [id number] [address] [place] [address], [place] [address] 25 Jun, 2012 [facility] [address] [id number] [address] [place] [address], [place] [address] 25 Sep, 2012 [facility] [address] [id number] [address] [place] [address], [place] [address] 19 Sep, 2012 [facility] [address] [id number] [address] [place] [address], [place] [address] 18 Sep, 2012 [facility] [address] [id number] [address] [place] [address], [place] [address] 16 Jun, 2013 [facility] [address] [id number] [address] [place] [address], [place] [address] 12 Jun, 2013 [facility] [address] [id number] [address] [place] [address], [place] [address] Jun, [facility] [address] [id number] [address] [place] [address], [place] [address] May, [facility] [address] [id number] [address] [place] [address], [place] [address] May, [facility] [address] [id number] [address] [place] [address], [place] [address] Apr, [facility] [address] [id number] [address] [place] [address], [place] [address] Apr, [facility] [address] [id number] [address] [place] [address], [place] [address] Apr, [facility] [address] [id number] [address] [place] [address], [place] [address] Mar, [facility] [address] [id number] [address] [place] [address], [place] [address] Mar, [facility] [facility] [address] [id number] [address] [place] [address], [place] [address] February, [facility] [address] [id number] [address] [place] [address], [place] [address] February, [facility] [address] [id number] [address] [place] [address], [place] [address] February, [facility] [address] [id number] [address] [place] [address], [place] [address] February, [facility] [address] [id number] [address] [place] [address], [place] [address] Jan, [facility] [address] [id number] [address] [place] [address], [place] [address] Jan, [facility] [address] [id number] [address] [place] [address] 16 Jan, 2013 [facility] [address] [id number] [address] [place] [address], [place] [address] 29 Dec, 2012 [facility] [address] [id number] [address] [place] [address], [place] [address] Dec, [facility] [address] [id number] [address] [place] [address], [place] [address] Dec, [facility] [address] [id number] [address] [place] [address], [place] [address] 08 Dec, 2012 [facility] [address] [id number] [address] [place] [address], [place] [address] Nov, [facility] [address] [id number] [address] [place] [address], [place] [address] Nov, [facility] [address] [id number] [address] [place] [address], [place] [address] Oct, [facility] [address] [id number] [address] [place] [address], [place] [address] Oct, [facility] [address] [id number] [address] [place] [address], [place] [address] Oct, [facility] [address] [id number] [address] [place] [address], [place] [address] Oct, [facility] [address] [id number] [address] [place] [address], [place] [address] Aug, [facility] [address] [id number] [address] [place] [address], [place] [address] Aug, [facility] [address] [id number] [address] [place] [address], [place] [address] Jun, [facility] [address] [id number] [address] [place] [address], [place] [address] May, [facility] [address] [id number] [address] [place] [address], [place] [address] May, [facility] [address] [id number] [address] [place] [address], [place] [address] Apr, [facility] [address] [id number] [address] [place] [address], [place] [address] Apr, [facility] [address] [id number] [address] [place] [address], [place] [address] Apr, [facility] [address] [id number] [address] [place] [address], [place] [address] Mar, [facility] [address] [id number] [address] [place] [address], [place] [address] Mar, [facility] [address] [id number] [address] [place] [address], [place] [address] Mar, [facility] [address] [id number] [address] [place] [address], [place] [address] Mar, [facility] [address] [id number] [address] [place] [address], [place] [address] Mar, [facility] [address] [id number] [address] [place] [address], [place] [address] February, [facility] [address] [id number] [address] [place] [address], [place] [address] February, [facility] [address] [id number] [address] [place] [address], [place] [address] February, [facility] [address] [id number] [address] [place] [address], [place] [address] February, [facility] [address] [id number] [address] [place] [address], [place] [address] February, [facility] [address] [id number] [address] [place] [address], [place] [address] February, [facility] [address] [id number] [address] [place] [address], [place] [address] February, [facility] [address] [id number] [address] [place] [address], [place] [address] 25 Jan, 2012 [facility] [address] [id number] [address] [place] [address], [place] [address] 18 Jan, 2012 [facility] [address] [id number] [address] [place] [address], [place] [address] 17 Jan, 2012 [facility] [address] [id number] [address] [place] [address], [place] [address] 13 Jan, 2012 [facility] [address] [id number] [address] [place] [address], [place] [address] 10 Jan, 2012 [facility] [address] [id number] [address] [place] [address], [place] [address] 04 Jan, 2012 [facility] [address] [id number] [address] [place] [address], [place] [address] 30 Dec, 2011 [facility] [address] [id number] [address] [place] [address], [place] [address] 24 Dec, 2011 [facility] [address] [id number] [address] [place] [address], [place] [address] 20 Dec, 2011 [facility] [address] [id number] [address] [place] [address], [place] [address] 13 Dec, 2011 [facility] [address] [id number] [address] [place] [address], [place] [address] 06 Dec, 2011 [facility] [address] [id number] [address] [place] [address], [place] [address] 28 Nov, 2011 [facility] [address] [id number] [address] [place] [address], [place] [address] 27 Nov, 2011 [facility] [address] [id number] [address] [place] [address], [place] [address] 25 Nov, 2011 [facility] [address] [id number] [address] [place] [address], [place] [address] 14 Nov, 2011 [facility] [address] [id number] [address] [place] [address], [place] [address] 10 Nov, 2011 [facility] [address] [id number] [address] [place] [address], [place] [address] Nov, [facility] [address] [id number] [address] [place] [address], [place] [address] Oct, [facility] [address] [id number] [address] [place] [address], [place] [address] Oct, [facility] [address] [id number] [address] [place] [address], [place] [address] Oct, [facility] [address] [id number] [address] [place] [address], [place] [address] Oct, [facility] [address] [id number] [address] [place] [address], [place] [address] Oct, [facility] [address] [id number] [address] [place] [address], [place] [address] Sep, [facility] [address] [id number] [address] [place] [address], [place] [address] Sep, [facility] [address] [id number] [address] [place] [address], [place] [address] Sep, [facility] [address] [id number] [address] [place] [address], [place] [address] 14 Sep, 2011 [facility] [address] [id number] [address] [place] [address], [place] [address] 14 Sep, 2011 [facility] [address] [id number] [address] [place] [address], [place] [address] 13 Sep, 2011 [facility] [address] [id number] [address] [place] [address], [place] [address] 12 Sep, 2011 [facility] [address] [id number] [address] [place] [address], [place] [address] 09 Sep, 2011 [facility] [address] [id number] [address] [place] [address], [place] [address] 05 Sep, 2011 [facility] [address] [id number] [address] [place] [address] [address] Aug, [facility] [address] [id number] [address] [place] [address], [place] [address] Aug, [facility] [address] [id number] [address] [place] [address], [place] [address] Aug, [facility] [address] [id number] [address] [place] [address], [place] [address] Aug, [facility] [address] [id number] [address] [place] [address], [place] [address] Aug, [facility] [address] [id number] [address] [place] [address], [place] [address] Aug, [facility] [address] [id number] [address] [place] [address], [place] [address] Aug, [facility] [address] [id number] [address] [place] [address], [place] [address] Aug, [facility] [address] [id number] [address] [place] [address], [place] [address] Aug, [facility] [address] [id number] [address] [place] [address], [place] [address] Aug, [facility] [address] [id number] [address] [place] [address], [place] [address] Aug, [facility] [address] [id number] [address] [place] [address] Aug, [facility] [address] [id number] [address] [place] [address] Jul, [facility] [address] [id number] [address] [place] [address], [place] [address] Jul, [facility] [address] [id number] [address] [place] [address] Jul, [facility] [address] [id number] [address] [place] [address] Jul, [facility] [address] [id number] [address] [place] [address] Jul, [facility] [address] [id number] [address] [place] [address] Jul, [facility] [address] [id number] [address] [place] [address] Jul, [facility] [address] [id number] [address] [place] [address] Jul, [facility] [address] [id number] [address] [place] [address] Jul, [facility] [address] [id number] [address] [place] [address] Jul, [facility] [address] [id number] [address] [place] [address] Nov, [facility] [address] [id number] [address] [place] [address] Aug, [facility] [address] [id number] [address] [place] [address] Aug, [facility] [address] [id number] [address] [place] [address] Aug, [facility] [address] [id number] [address] [place] [address] Aug, [facility] [address] [id number] [address] [place] [address] Jul, IMMUNIZATIONS No Known Immunizations SOCIAL HISTORY Never Assessed REASON FOR VISIT PLAN OF CARE VITAL SIGNS Height 65.75 in 2014-08-16 Weight 191 lbs 2014-08-16 Temperature 98 degrees Fahrenheit 2014-08-16 Heart Rate 68 bpm 2014-08-16 Respiratory Rate 28 2014-08-16 Blood pressure systolic 106 mmHg 2014-08-16 Blood pressure diastolic 84 mmHg 2014-08-16 MEDICATIONS Unknown Medications RESULTS No Results PROCEDURES No Known procedures INSTRUCTIONS MEDICATIONS ADMINISTERED No Known Medications MEDICAL (GENERAL) HISTORY Type Description Date Medical History diabetes Medical History thyroid Surgical History appendix Surgical History gallbladder Surgical History eyes Surgical History hip Surgical History MRI on back and pelvis 06/08 Hospitalization History surgeries Hospitalization History [facility] attempt by hanging 2015 Hospital[facility]/30[facility]2018-02/10/20 08 Hospitalization History [facility] 05/04/18-
--- OUTSIDE RECORDS SUMMARY | 2020-04-04 02:03 | XMS REPORT ---
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 Active 88737985 Problem Generalized anxiety disorder 300.02 A ctive 43451478 Problem Obsessive-compulsive disorders 300.3 Active 394026330 Problem Catatonic schizophrenia, 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 643078644 Problem Disorganized schizophrenia, 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 78301693 Problem Paranoid schizophrenia F20.0 Active 34180670 Problem Borderline personality disorder F60.3 Active 29041237 Problem Paranoid schizophrenia, unspecified condition 295.30 Active 52474346 Problem Schizoaffective disorder, depressive type F25.1 Active 24529733 Problem Bipolar disorder, unspecified 296.80 Active 63813730 Problem Schizoaffective disorder, unspecified F25.9 Active 73102785 Problem Attention deficit hyperactivity disorder (ADHD), inattentive type, 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 99017638 Problem Posttraumatic stress disorder F43.10 Active 59966554 Problem High risk medication use Z79.899 Activ e [id number] ALLERGIES No Information ENCOUNTERS Encounter Location Date Diagnosis [facility] [address] [facility] [id number] [address] [place] [phone] May, [facility] [address] [facility] [id number] [address] [place] [phone] Apr, Paranoid schizophrenia F20.0 ; Posttraumatic stress disorder F43.10 ; Attention deficit hyperactivity disorder (ADHD), inattentive type, 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 and Borderline personality disorder F60.3 [facility] [address] [facility] [id number] [address] [place] [id number] Apr, Paranoid schizophrenia F20.0 [facility] [address] [facility] [id number] [address] [place] [phone] Apr, Paranoid schizophrenia F20.0 ; Posttraumatic stress disorder F43.10 ; Attention deficit hyperactivity disorder (ADHD), inattentive type, 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 and Borderline personality disorder F60.3 [facility] [address] [facility] [id number] [address] [place] [address] Mar, Paranoid schizophrenia F20.0 [facility] [address] [id number] [address] [place] [phone] Mar, Paranoid schizophrenia F20.0 ; Posttraumatic stress disorder F43.10 ; Attention deficit hyperactivity disorder (ADHD), inattentive type, 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 and Borderline personality disorder F60.3 [facility] [address] [facility] [id number] [address] [place] [phone] February, Paranoid schizophrenia F20.0 [facility] [address] [facility] [id number] [address] [place] [address] Jan, Paranoid schizophrenia F20.0 ; Posttraumatic stress disorder F43.10 ; Attention deficit hyperactivity disorder (ADHD), inattentive type, 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 and Borderline personality disorder F60.3 [facility] [address] [facility] [id number] [address] [place] [address] Dec, Paranoid schizophrenia F20.0 ; Posttraumatic stress disorder F43.10 ; Attention deficit hyperactivity disorder (ADHD), inattentive type, 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 and Borderline personality disorder F60.3 [facility] [address] [id number] [address] [place] [address] Dec, Paranoid schizophrenia F20.0 ; Posttraumatic stress disorder F43.10 ; Attention deficit hyperactivity disorder (ADHD), inattentive type, 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 and Borderline personality disorder F60.3 [facility] [address] [facility] [id number] [address] [place] [phone] Oct, Paranoid schizophrenia F20.0 ; Posttraumatic stress disorder F43.10 ; Attention deficit hyperactivity disorder (ADHD), inattentive type, 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 and Borderline personality disorder F60.3 [facility] [address] [id number] [address] [place] [phone] Oct, Paranoid schizophrenia F20.0 ; Posttraumatic stress disorder F43.10 ; Attention deficit hyperactivity disorder (ADHD), inattentive type, 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 [address] [id number] [address] [place] [phone] Jul, Dry skin dermatitis L85.3 [facility] [address] [id number] [address] [place] [phone] Jul, [facility] [address] [facility] [id number] [address] [place] [phone] Jul, Paranoid schizophrenia F20.0 [facility] [address] [id number] [address] [place] [phone] May, Paranoid schizophrenia F20.0 ; Posttraumatic stress disorder F43.10 ; Attention deficit hyperactivity disorder (ADHD), inattentive type, 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 and Borderline personality disorder F60.3 [facility] [address] [id number] [address] [place] [address] May, [facility] [address] [id number] [address] [place] [address] May, Paranoid schizophrenia F20.0 [facility] [address] [id number] [address] [place] [phone] May, Paranoid schizophrenia F20.0 ; Posttraumatic stress disorder F43.10 ; Attention deficit hyperactivity disorder (ADHD), inattentive type, 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 and Borderline personality disorder F60.3 [facility] [address] [id number] [address] [place] [address] Apr, [facility] [address] [id number] [address] [place] [phone] Apr, Paranoid schizophrenia F20.0 ; Posttraumatic stress disorder F43.10 ; Attention deficit hyperactivity disorder (ADHD), inattentive type, 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 and Borderline personality disorder F60.3 [facility] [address] [id number] [address] [place] [address] Apr, [facility] [address] [id number] [address] [place] [phone] Apr, Schizoaffective disorder, de pressive type F25.1 and Borderline personality disorder F60.3 [facility] [address] [id number] [address] [place] [address] Apr, Paranoid schizophrenia F20.0 ; Posttraumatic stress disorder F43.10 ; Attention deficit hyperactivity disorder (ADHD), inattentive type, 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 and Borderline personality disorder F60.3 [facility] [address] [id number] [address] [place] [address] Apr, [facility] [address] [id number] [address] [place] [address] Apr, Paranoid schizophrenia F20.0 ; Posttraumatic stress disorder F43.10 ; Attention deficit hyperactivity disorder (ADHD), inattentive type, 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 and Borderline personality disorder F60.3 [facility] [address] [id number] [address] [place] [phone] Apr, [facility] [address] [id number] [address] [place] [phone] Mar, Paranoid schizophrenia F20.0 [facility] [address] [id number] [address] [place] [phone] Mar, [facility] [address] [id number] [address] [place] [address] Mar, Paranoid schizophrenia F20.0 ; Posttraumatic stress disorder F43.10 ; Attention deficit hyperactivity disorder (ADHD), inattentive type, 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 and Borderline personality disorder F60.3 [facility] [address] [id number] [address] [place] [address] February, Paranoid schizophrenia F20.0 [facility] [address] [id number] [address] [place] [phone] February, Paranoid schizophrenia F20.0 ; Posttraumatic stress disorder F43.10 ; Attention deficit hyperactivity disorder (ADHD), inattentive type, 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 and Borderline personality disorder F60.3 [facility] [address] [facility] [id number] [address] [place] [phone] February, Paranoid schizophrenia F20.0 ; Posttraumatic stress disorder F43.10 ; Attention deficit hyperactivity disorder (ADHD), inattentive type, 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 and Borderline personality disorder F60.3 [facility] [address] [id number] [address] [place] [phone] February, [facility] [address] [facility] [id number] [address] [place] [phone] February, Paranoid schizophrenia F20.0 [facility] [address] [facility] [id number] [address] [place] [address] February, Paranoid schizophrenia F20.0 [facility] [address] [id number] [address] [place] [phone] February, Paranoid schizophrenia F20.0 ; Posttraumatic stress disorder F43.10 ; Attention deficit hyperactivity disorder (ADHD), inattentive type, 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 and Borderline personality disorder F60.3 [facility] [address] [id number] [address] [place] [address] Jan, Paranoid schizophrenia F20.0 ; Posttraumatic stress disorder F43.10 ; Attention deficit hyperactivity disorder (ADHD), inattentive type, 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 and Borderline personality disorder F60.3 [facility] [address] [id number] [address] [place] [phone] Jan, Paranoid schizophrenia F20.0 [facility] [address] [id number] [address] [place] [phone] Jan, Paranoid schizophrenia F20.0 [facility] [address] [id number] [address] [place] [phone] Jan, Paranoid schizophrenia F20.0 ; Posttraumatic stress disorder F43.10 ; Attention deficit hyperactivity disorder (ADHD), inattentive type, 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 and Borderline personality disorder F60.3 [facility] [address] [id number] [address] [place] [address] Dec, [facility] [address] [id number] [address] [place] [phone] Nov, Paranoid schizophrenia F20.0 ; Posttraumatic stress disorder F43.10 ; Attention deficit hyperactivity disorder (ADHD), inattentive type, 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 and Borderline personality disorder F60.3 [facility] [address] [id number] [address] [place] [address] Nov, [facility] [address] [id number] [address] [place] [address] Oct, Paranoid schizophrenia F20.0 [facility] [address] [id number] [address] [place] [phone] Oct, Paranoid schizophrenia F20.0 ; Posttraumatic stress disorder F43.10 ; Attention deficit hyperactivity disorder (ADHD), inattentive type, 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 ; Borderline personality disorder F60.3 and 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.899 [facility] [address] [id number] [address] [place] [phone] Oct, [facility] [address] [id number] [address] [place] [phone] Oct, [facility] [address] [id number] [address] [place] [phone] Sep, [facility] [address] [facility] [id number] [address] [place] [phone] Sep, Paranoid schizophrenia F20.0 ; Posttraumatic stress disorder F43.10 ; Attention deficit hyperactivity disorder (ADHD), inattentive type, 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 and Borderline personality disorder F60.3 [facility] [address] [id number] [address] [place] [address] Sep, Paranoid schizophrenia F20.0 [facility] [address] [id number] [address] [place] [phone] Aug, Paranoid schizophrenia F20.0 ; Posttraumatic stress disorder F43.10 ; Attention deficit hyperactivity disorder (ADHD), inattentive type, 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 and Borderline personality disorder F60.3 [facility] [address] [facility] [id number] [address] [place] [address] Aug, Paranoid schizophrenia F20.0 ; Posttraumatic stress disorder F43.10 ; Attention deficit hyperactivity disorder (ADHD), inattentive type, 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 and Borderline personality disorder F60.3 [facility] [address] [facility] [id number] [address] [place] [phone] Aug, [facility] [address] [id number] [address] [place] [address] Jul, Paranoid schizophrenia F20.0 ; Posttraumatic stress disorder F43.10 ; Attention deficit hyperactivity disorder (ADHD), inattentive type, 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 and Borderline personality disorder F60.3 [facility] [address] [facility] [id number] [address] [place] [phone] Jul, Paranoid schizophrenia F20.0 [facility] [address] [facility] [id number] [address] [place] [phone] Jul, Paranoid schizophrenia F20.0 ; Posttraumatic stress disorder F43.10 ; Attention deficit hyperactivity disorder (ADHD), inattentive type, 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 and Borderline personality disorder F60.3 [facility] [address] [id number] [address] [place] [phone] Jun, Paranoid schizophrenia F20.0 ; Posttraumatic stress disorder F43.10 ; Attention deficit hyperactivity disorder (ADHD), inattentive type, 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 and Borderline personality disorder F60.3 [facility] [address] [id number] [address] [place] [address] May, Other terminal supervisor (current) dr ug therapy Z79.899 [facility] [address] [id number] [address] [place] [phone] May, [facility] [address] [id number] [address] [place] [phone] May, [facility] [address] [id number] [address] [place] [phone] May, Attention deficit hyperactiv ity disorder (ADHD), inattentive type, mild F90.0 [facility] [address] [id number] [address] [place] [phone] May, [facility] [address] [id number] [address] [place] [phone] May, Attention deficit hyperactiv ity disorder (ADHD), inattentive type, mild F90.0 [facility] [address] [id number] [address] [place] [address] May, Paranoid schizophrenia F20.0 ; Posttraumatic stress disorder F43.10 ; Attention deficit hyperactivity disorder (ADHD), inattentive type, 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 and 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.899 [facility] [address] [id number] [address] [place] [phone] Apr, Paranoid schizophrenia F20.0 [facility] [address] [id number] [address] [place] [phone] Apr, Paranoid schizophrenia F20.0 ; Posttraumatic stress disorder F43.10 and Attention deficit hyperactivity disorder (ADHD), inattentive type, 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 [facility] [address] [id number] [address] [place] [address] February, [facility] [address] [id number] [address] [place] [phone] February, Paranoid schizophrenia F20.0 ; Posttraumatic stress disorder F43.10 and Attention deficit hyperactivity disorder (ADHD), inattentive type, 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 [facility] [address] [id number] [address] [place] [address] February, Paranoid schizophrenia F20.0 ; Posttraumatic stress disorder F43.10 and Attention deficit hyperactivity disorder (ADHD), inattentive type, 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 [facility] [address] [id number] [address] [place] [phone] Jan, Paranoid schizophrenia F20.0 ; Posttraumatic stress disorder F43.10 and Attention deficit hyperactivity disorder (ADHD), inattentive type, 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 [facility] [address] [id number] [address] [place] [id number] Dec, Dental examination Z01.20 [facility] [address] [id number] [address] [place] [id number] Nov, Dental examination Z01.20 [facility] [address] [id number] [address] [place] [address] [id number] Nov, Dental examination Z01.20 [facility] [address] [id number] [address] [place] [address] [id number] Nov, Dental caries K02.9 [facility] [address] [id number] [address] [place] [address] 13 Nov, 2016 High risk medication use Z79 .899 [facility] [address] [id number] [address] [place] [address] Nov, Paranoid schizophrenia F20.0 ; Posttraumatic stress disorder F43.10 ; Attention deficit hyperactivity disorder (ADHD), inattentive type, 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 and Borderline personality disorder in adult F60.3 [facility] [address] [id number] [address] [place] [address] [id number] 18 Oct, 2016 Dental caries K02.9 [facility] [address] [id number] [address] [place] [phone] 05 Sep, 2016 Paranoid schizophrenia F20.0 ; Posttraumatic stress disorder F43.10 and Attention deficit hyperactivity disorder (ADHD), inattentive type, 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 [facility] [address] [id number] [address] [place] [phone] 16 Aug, 2016 Paranoid schizophrenia F20.0 ; Posttraumatic stress disorder F43.10 and Attention deficit hyperactivity disorder (ADHD), inattentive type, 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 [facility] [address] [id number] [address] [place] [phone] Aug, Strep throat J02.0 and Cough R05 [facility] [address] [id number] [address] [place] [phone] Aug, [facility] [address] [id number] [address] [place] [phone] 24 Jul, 2016 Paranoid schizophrenia F20.0 ; Posttraumatic stress disorder F43.10 and Attention deficit hyperactivity disorder (ADHD), inattentive type, 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 [facility] [address] [id number] [address] [place] [phone] Jul, [facility] [address] [id number] [address] [place] [phone] 28 Jun, 2016 Paranoid schizophrenia F20.0 ; Posttraumatic stress disorder F43.10 and Attention deficit hyperactivity disorder (ADHD), inattentive type, 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 [facility] [address] [id number] [address] [place] [address] [id number] 22 Jun, 2016 Dental examination Z01.20 [facility] [address] [id number] [address] [place] [phone] 12 Jun, 2016 [facility] [address] [id number] [address] [place] [address] May, Paranoid schizophrenia F20.0 [facility] [address] [id number] [address] [place] [phone] May, Paranoid schizophrenia F20.0 ; Posttraumatic stress disorder F43.10 and Attention deficit hyperactivity disorder (ADHD), inattentive type, 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 [facility] [address] [id number] [address] [place] [phone] May, [facility] [address] [id number] [address] [place] [phone] May, Paranoid schizophrenia F20.0 [facility] [address] [id number] [address] [place] [phone] May, [facility] [address] [id number] [address] [place] [phone] May, Paranoid schizophrenia F20.0 [facility] [address] [id number] [address] [place] [phone] May, Schizoaffective disorder, un specified F25.9 [facility] [address] [id number] [address] [place] [address] May, Schizoaffective disorder, un specified F25.9 [facility] [address] [id number] [address] [place] [phone] May, [facility] [address] [id number] [address] [place] [phone] May, Paranoid schizophrenia F20.0 [facility] [address] [id number] [address] [place] [phone] May, Paranoid schizophrenia F20.0 ; Posttraumatic stress disorder F43.10 and Attention deficit hyperactivity disorder (ADHD), inattentive type, 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 [facility] [address] [id number] [address] [place] [phone] Mar, [facility] [address] [id number] [address] [place] [phone] Mar, Paranoid schizophrenia F20.0 ; Posttraumatic stress disorder F43.10 and Attention deficit hyperactivity disorder (ADHD), inattentive type, 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 [facility] [address] [id number] [address] [place] [phone] Mar, Paranoid schizophrenia F20.0 [facility] [address] [id number] [address] [place] [phone] Mar, Paranoid schizophrenia F20.0 ; Attention deficit hyperactivity disorder (ADHD), inattentive type, 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 and Posttraumatic stress disorder F43.10 [facility] [address] [id number] [address] [place] [phone] Mar, [facility] [address] [id number] [address] [place] [phone] Mar, Paranoid schizophrenia F20.0 ; Posttraumatic stress disorder F43.10 and Attention deficit hyperactivity disorder (ADHD), inattentive type, 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 [facility] [address] [id number] [address] [place] [address] February, [facility] [address] [id number] [address] [place] [address] February, [facility] [address] [id number] [address] [place] [address] February, [facility] [address] [id number] [address] [place] [address] February, [facility] [address] [id number] [address] [place] [address] Jan, Paranoid schizophrenia F20.0 [facility] [address] [id number] [address] [place] [id number] Jan, Dental examination Z01.20 [facility] [address] [id number] [address] [place] [id number] Jan, Dental caries K02.9 [facility] [address] [id number] [place] [id number] Jan, Dental examination Z01.20 [facility] [address] [id number] [place] [id number] Dec, Encounter for dental examina tion Z01.20 [facility] [address] [id number] [address] [place] [address] Dec, Paranoid schizophrenia F20.0 [facility] [address] [id number] [address] [place] [id number] Dec, Dental examination Z01.20 [facility] [address] [id number] [address] [place] [address] Dec, [facility] [address] [id number] [address] [place] [address] Dec, Paranoid schizophrenia F20.0 ; Posttraumatic stress disorder F43.10 and Attention deficit hyperactivity disorder (ADHD), inattentive type, 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 [facility] [address] [id number] [address] [place] [address] Nov, Schizoaffective disorder, un specified F25.9 [facility] [address] [id number] [address] [place] [address] Oct, Paranoid schizophrenia F20.0 [facility] [address] [id number] [address] [place] [address] Oct, [facility] [address] [id number] [address] [place] [address] Sep, Paranoid schizophrenia F20.0 ; Posttraumatic stress disorder F43.10 and Attention deficit hyperactivity disorder (ADHD), inattentive type, 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 [facility] [address] [id number] [address] [place] [address] Sep, [facility] [address] [id number] [address] [place] [address] Sep, Paranoid schizophrenia F20.0 ; Posttraumatic stress disorder F43.10 and Attention deficit hyperactivity disorder (ADHD), inattentive type, 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 [facility] [address] [id number] [address] [place] [address] Aug, Paranoid schizophrenia F20.0 [facility] [address] [id number] [address] [place] [address] Aug, [facility] [address] [facility] [id number] [address] [place] [address] Aug, Posttraumatic stress disorde r F43.10 ; Paranoid schizophrenia F20.0 and Attention deficit hyperactivity disorder (ADHD), inattentive type, 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 [facility] [address] [facility] [id number] [address] [place] [address] Jul, Bipolar disorder, unspecifie d F31.9 [facility] [address] [facility] [id number] [address] [place] [address] Jul, [facility] [address] [facility] [id number] [address] [place] [address] Jun, [facility] [address] [facility] [id number] [address] [place] [address] Jun, Schizoaffective disorder, ch ronic 295.72 ; Posttraumatic stress disorder 309.81 and Attention deficit disorder of childhood without mention of hyperactivity 314.00 [facility] [address] [facility] [id number] [address] [place] [address] May, [facility] [address] [id number] [address] [place] [address] May, [facility] [address] [facility] [id number] [address] [place] [address] May, Schizoaffective disorder, ch ronic 295.72 ; Posttraumatic stress disorder 309.81 ; Attention deficit disorder of childhood without mention of hyperactivity 314.00 and Bipolar disorder, unspecified 296.80 [facility] [address] [id number] [address] [place] [address] Apr, Schizoaffective disorder, ch ronic 295.72 [facility] [address] [id number] [address] [place] [address] Apr, [facility] [address] [id number] [address] [place] [address] Apr, Schizoaffective disorder, ch ronic 295.72 ; Posttraumatic stress disorder 309.81 and Attention deficit disorder of childhood without mention of hyperactivity 314.00 [facility] [address] [id number] [address] [place] [address] Mar, Disorganized schizophrenia, 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 [facility] [address] [id number] [address] [place] [address] Mar, [facility] [address] [id number] [address] [place] [address] Mar, [facility] [address] [facility] [id number] [address] [place] [address] Mar, [facility] [address] [id number] [address] [place] [address] Mar, [facility] [address] [facility] [id number] [address] [place] [address] February, Schizoaffective disorder, ch ronic 295.72 [facility] [address] [facility] [id number] [address] [place] [address] February, [facility] [address] [id number] [address] [place] [address] February, Attention 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 ; Posttraumatic stress disorder 309.81 and Schizoaffective disorder, chronic 295.72 [facility] [address] [id number] [address] [place] [address] Jan, [facility] [address] [id number] [address] [place] [address] Jan, [facility] [address] [id number] [address] [place] [address], [place] [address] Jan, [facility] [address] [id number] [address] [place] [address], [place] [address] Dec, [facility] [address] [id number] [address] [place] [address], [place] [address] Dec, [facility] [address] [id number] [address] [place] [address], [place] [address] Dec, [facility] [address] [id number] [address] [place] [address], [place] [address] Dec, [facility] [address] [id number] [address] [place] [address], [place] [address] Dec, [facility] [address] [id number] [address] [place] [address], [place] [address] Dec, [facility] [address] [id number] [address] [place] [address], [place] [address] Dec, [facility] [address] [id number] [address] [place] [address], [place] [address] Dec, [facility] [address] [id number] [address] [place] [address], [place] [address] Nov, [facility] [address] [id number] [address] [place] [address], [place] [address] Nov, [facility] [address] [id number] [address] [place] [address], [place] [address] Nov, [facility] [address] [id number] [address] [place] [address], [place] [address] Nov, [facility] [address] [id number] [address] [place] [address], [place] [address] Nov, [facility] [address] [id number] [address] [place] [address], [place] [address] Nov, 2014 [facility] [address] [id number] [address] [place] [address], [place] [address] Nov, [facility] [address] [id number] [address] [place] [address], [place] [address] Nov, [facility] [address] [id number] [address] [place] [address], [place] [address] Nov, [facility] [address] [id number] [address] [place] [address], [place] [address] Nov, [facility] [address] [id number] [address] [place] [address], [place] [address] Oct, [facility] [address] [id number] [address] [place] [address], [place] [address] Oct, [facility] [address] [id number] [address] [place] [address], [place] [address] Oct, [facility] [address] [id number] [address] [place] [address], [place] [address] Oct, [facility] [address] [id number] [address] [place] [address], [place] [address] Oct, [facility] [address] [id number] [address] [place] [address], [place] [address] Oct, [facility] [address] [id number] [address] [place] [address], [place] [address] Oct, [facility] [address] [id number] [address] [place] [address], [place] [address] Sep, [facility] [address] [id number] [address] [place] [address], [place] [address] Sep, [facility] [address] [id number] [address] [place] [address], [place] [address] Sep, [facility] [address] [id number] [address] [place] [address], [place] [address] Sep, [facility] [address] [id number] [address] [place] [address], [place] [address] Aug, [facility] [address] [id number] [address] [place] [address], [place] [address] Aug, [facility] [address] [id number] [address] [place] [address], [place] [address] Aug, [facility] [address] [id number] [address] [place] [address], [place] [address] Aug, [facility] [address] [id number] [address] [place] [address], [place] [address] Aug, [facility] [address] [id number] [address] [place] [address], [place] [address] Aug, [facility] [address] [id number] [address] [place] [address], [place] [address] Jul, [facility] [address] [id number] [address] [place] [address], [place] [address] Jul, [facility] [address] [id number] [address] [place] [address], [place] [address] Jul, [facility] [address] [id number] [address] [place] [address], [place] [address] Jul, [facility] [address] [id number] [address] [place] [address], [place] [address] Jul, [facility] [address] [id number] [address] [place] [address], [place] [address] Jul, [facility] [address] [id number] [address] [place] [address], [place] [address] 27 Jun, 2014 [facility] [address] [id number] [address] [place] [address], [place] [address] 27 Jun, 2014 [facility] [address] [id number] [address] [place] [address], [place] [address] 26 Jun, 2014 [facility] [address] [id number] [address] [place] [address], [place] [address] 26 Jun, 2014 [facility] [address] [id number] [address] [place] [address], [place] [address] Jun, [facility] [address] [id number] [address] [place] [address], [place] [address] Jun, 2013 [facility] [address] [id number] [address] [place] [address], [place] [address] Jun, [facility] [address] [id number] [address] [place] [address], [place] [address] Jun, 2013 [facility] [address] [id number] [address] [place] [address], [place] [address] Jun, 2013 [facility] [address] [id number] [address] [place] [address], [place] [address] Jun, [facility] [address] [id number] [address] [place] [address], [place] [address] Jun, [facility] [address] [id number] [address] [place] [address], [place] [address] May, [facility] [address] [id number] [address] [place] [address], [place] [address] May, [facility] [address] [id number] [address] [place] [address], [place] [address] May, [facility] [address] [id number] [address] [place] [address], [place] [address] May, [facility] [address] [id number] [address] [place] [address], [place] [address] May, [facility] [address] [id number] [address] [place] [address], [place] [address] May, [facility] [address] [id number] [address] [place] [address], [place] [address] May, [facility] [address] [id number] [address] [place] [address], [place] [address] May, [facility] [address] [id number] [address] [place] [address], [place] [address] May, [facility] [address] [id number] [facility] [place] [address] May, [facility] [address] [id number] [facility] [place] [address] Apr, [facility] [address] [id number] [facility] [place] [address] Apr, [facility] [address] [id number] [address] [place] [address], [place] [address] Apr, [facility] [address] [id number] [address] [place] [address], [place] [address] Apr, [facility] [address] [id number] [address] [place] [address], [place] [address] Apr, [facility] [address] [id number] [address] [place] [address], [place] [address] Apr, [facility] [address] [id number] [address] [place] [address], [place] [address] Apr, [facility] [address] [id number] [address] [place] [address], [place] [address] Apr, [facility] [address] [id number] [address] [place] [address], [place] [address] Apr, [facility] [address] [id number] [address] [place] [address], [place] [address] Apr, [facility] [address] [id number] [address] [place] [address], [place] [address] Mar, [facility] [address] [id number] [address] [place] [address], [place] [address] Mar, [facility] [address] [id number] [address] [place] [address], [place] [address] Mar, [facility] [address] [id number] [address] [place] [address], [place] [address] Mar, [facility] [address] [id number] [address] [place] [address], [place] [address] Mar, [facility] [address] [id number] [address] [place] [address], [place] [address] 18 Mar, 2014 [facility] [address] [id number] [address] [place] [address], [place] [address] 18 Mar, 2014 [facility] [address] [id number] [address] [place] [address], [place] [address] 16 Mar, 2014 [facility] [address] [id number] [address] [place] [address], [place] [address] 16 Mar, 2014 [facility] [address] [id number] [address] [place] [address], [place] [address] Mar, [facility] [address] [id number] [address] [place] [address], [place] [address] Mar, [facility] [address] [id number] [address] [place] [address], [place] [address] Mar, [facility] [address] [id number] [address] [place] [address], [place] [address] Mar, [facility] [address] [id number] [address] [place] [address], [place] [address] Mar, [facility] [address] [id number] [address] [place] [address], [place] [address] Mar, [facility] [address] [id number] [address] [place] [address], [place] [address] Mar, [facility] [address] [id number] [address] [place] [address] Mar, [facility] [address] [id number] [address] [place] [address], [place] [address] Mar, [facility] [address] [id number] [address] [place] [address], [place] [address] 04 Mar, 2014 [facility] [address] [id number] [address] [place] [address], [place] [address] 04 Mar, 2014 [facility] [address] [id number] [address] [place] [address], [place] [address] February, [facility] [address] [id number] [address] [place] [address], [place] [address] February, [facility] [address] [id number] [address] [place] [address], [place] [address] February, [facility] [address] [id number] [address] [place] [address], [place] [address] February, [facility] [address] [id number] [address] [place] [address], [place] [address] February, [facility] [address] [id number] [address] [place] [address], [place] [address] February, [facility] [address] [id number] [address] [place] [address], [place] [address] February, [facility] [address] [id number] [address] [place] [address], [place] [address] February, [facility] [address] [id number] [address] [place] [address], [place] [address] February, [facility] [address] [id number] [address] [place] [address], [place] [address] February, [facility] [address] [id number] [address] [place] [address], [place] [address] February, [facility] [address] [id number] [address] [place] [address], [place] [address] February, [facility] [address] [id number] [address] [place] [address], [place] [address] February, [facility] [address] [id number] [address] [place] [address], [place] [address] February, [facility] [address] [id number] [address] [place] [address], [place] [address] February, [facility] [address] [id number] [address] [place] [address], [place] [address] February, [facility] [address] [id number] [address] [place] [address], [place] [address] February, [facility] [address] [id number] [address] [place] [address], [place] [address] February, [facility] [address] [id number] [address] [place] [address], [place] [address] February, [facility] [address] [id number] [address] [place] [address], [place] [address] February, [facility] [address] [id number] [address] [place] [address], [place] [address] February, [facility] [address] [id number] [address] [place] [address], [place] [address] Jan, [facility] [address] [id number] [address] [place] [address], [place] [address] Jan, [facility] [address] [id number] [address] [place] [address], [place] [address] Jan, [facility] [address] [id number] [address] [place] [address], [place] [address] Jan, [facility] [address] [id number] [address] [place] [address], [place] [address] Jan, [facility] [address] [id number] [address] [place] [address], [place] [address] Jan, [facility] [address] [id number] [address] [place] [address], [place] [address] Jan, [facility] [address] [id number] [address] [place] [address], [place] [address] Jan, [facility] [address] [id number] [address] [place] [address], [place] [address] Dec, [facility] [address] [id number] [address] [place] [address], [place] [address] Dec, [facility] [address] [id number] [address] [place] [address], [place] [address] 20 Dec, 2013 [facility] [address] [id number] [facility] [place] [address] 19 Dec, 2013 [facility] [address] [id number] [address] [place] [address], [place] [address] 19 Dec, 2013 [facility] [address] [id number] [address] [place] [address], [place] [address] 15 Dec, 2013 [facility] [address] [id number] [address] [place] [address], [place] [address] 15 Dec, 2013 [facility] [address] [id number] [address] [place] [address], [place] [address] 11 Dec, 2013 [facility] [address] [id number] [address] [place] [address], [place] [address] 10 Dec, 2013 [facility] [address] [id number] [address] [place] [address], [place] [address] 10 Dec, 2013 [facility] [address] [id number] [address] [place] [address], [place] [address] 18 Nov, 2013 [facility] [address] [id number] [address] [place] [address], [place] [address] 17 Nov, 2013 [facility] [address] [id number] [address] [place] [address], [place] [address] 17 Nov, 2013 [facility] [address] [id number] [address] [place] [address], [place] [address] 05 Nov, 2013 [facility] [address] [id number] [address] [place] [address], [place] [address] Nov, [facility] [address] [id number] [address] [place] [address], [place] [address] Oct, [facility] [address] [id number] [address] [place] [address], [place] [address] Oct, [facility] [address] [id number] [address] [place] [address], [place] [address] 16 Oct, 2013 [facility] [address] [id number] [address] [place] [address], [place] [address] Sep, [facility] [address] [id number] [address] [place] [address], [place] [address] Sep, [facility] [address] [id number] [address] [place] [address], [place] [address] Sep, [facility] [address] [id number] [address] [place] [address], [place] [address] Sep, [facility] [address] [id number] [address] [place] [address], [place] [address] Aug, [facility] [address] [id number] [address] [place] [address], [place] [address] Aug, [facility] [address] [address] [id number] [address] [place] [address], [place] [address] Jul, [facility] [address] [id number] [address] [place] [address], [place] [address] Jul, [facility] [address] [id number] [address] [place] [address], [place] [address] Jul, [facility] [address] [id number] [address] [place] [address], [place] [address] Jul, [facility] [address] [id number] [address] [place] [address], [place] [address] Jul, [facility] [address] [id number] [address] [place] [address], [place] [address] 25 Jun, 2012 [facility] [address] [id number] [address] [place] [address], [place] [address] 25 Sep, 2012 [facility] [address] [id number] [address] [place] [address], [place] [address] 19 Sep, 2012 [facility] [address] [id number] [address] [place] [address], [place] [address] 18 Sep, 2012 [facility] [address] [id number] [address] [place] [address], [place] [address] 16 Jun, 2013 [facility] [address] [id number] [address] [place] [address], [place] [address] 12 Jun, 2013 [facility] [address] [id number] [address] [place] [address], [place] [address] Jun, [facility] [address] [id number] [address] [place] [address], [place] [address] May, [facility] [address] [id number] [address] [place] [address], [place] [address] May, [facility] [address] [id number] [address] [place] [address], [place] [address] Apr, [facility] [address] [id number] [address] [place] [address], [place] [address] Apr, [facility] [address] [id number] [address] [place] [address], [place] [address] Apr, [facility] [address] [id number] [address] [place] [address], [place] [address] Mar, [facility] [address] [id number] [address] [place] [address], [place] [address] Mar, [facility] [address] [id number] [address] [place] [address], [place] [address] February, [facility] [address] [id number] [address] [place] [address], [place] [address] February, [facility] [address] [id number] [address] [place] [address], [place] [address] February, [facility] [address] [id number] [address] [place] [address], [place] [address] February, [facility] [address] [id number] [address] [place] [address], [place] [address] Jan, [facility] [address] [id number] [address] [place] [address], [place] [address] Jan, [facility] [address] [id number] [address] [place] [address] 16 Jan, 2013 [facility] [address] [id number] [address] [place] [address], [place] [address] 29 Dec, 2012 [facility] [address] [id number] [address] [place] [address], [place] [address] Dec, [facility] [address] [id number] [address] [place] [address], [place] [address] Dec, [facility] [address] [id number] [address] [place] [address], [place] [address] 08 Dec, 2012 [facility] [address] [id number] [address] [place] [address], [place] [address] Nov, [facility] [address] [id number] [address] [place] [address], [place] [address] Nov, [facility] [address] [id number] [address] [place] [address], [place] [address] Oct, [facility] [address] [id number] [address] [place] [address], [place] [address] Oct, [facility] [address] [id number] [address] [place] [address], [place] [address] Oct, [facility] [address] [id number] [address] [place] [address], [place] [address] Oct, [facility] [address] [id number] [address] [place] [address], [place] [address] Aug, [facility] [address] [id number] [address] [place] [address], [place] [address] Aug, [facility] [address] [id number] [address] [place] [address], [place] [address] Jun, [facility] [address] [id number] [address] [place] [address], [place] [address] May, [facility] [address] [id number] [address] [place] [address], [place] [address] May, [facility] [address] [id number] [address] [place] [address], [place] [address] Apr, [facility] [address] [id number] [address] [place] [address], [place] [address] Apr, [facility] [address] [id number] [address] [place] [address], [place] [address] Apr, [facility] [address] [id number] [address] [place] [address], [place] [address] Mar, [facility] [address] [id number] [address] [place] [address], [place] [address] Mar, [facility] [address] [id number] [address] [place] [address], [place] [address] Mar, [facility] [address] [id number] [address] [place] [address], [place] [address] Mar, [facility] [address] [id number] [address] [place] [address], [place] [address] Mar, [facility] [address] [id number] [address] [place] [address], [place] [address] February, [facility] [address] [id number] [address] [place] [address], [place] [address] February, [facility] [address] [id number] [address] [place] [address], [place] [address] February, [facility] [address] [id number] [address] [place] [address], [place] [address] February, [facility] [address] [id number] [address] [place] [address], [place] [address] February, [facility] [address] [id number] [address] [place] [address], [place] [address] February, [facility] [address] [id number] [address] [place] [address], [place] [address] February, [facility] [address] [id number] [address] [place] [address], [place] [address] 25 Jan, 2012 [facility] [address] [id number] [address] [place] [address], [place] [address] 18 Jan, 2012 [facility] [address] [id number] [address] [place] [address], [place] [address] 17 Jan, 2012 [facility] [address] [id number] [address] [place] [address], [place] [address] 13 Jan, 2012 [facility] [address] [id number] [address] [place] [address], [place] [address] 10 Jan, 2012 [facility] [address] [id number] [address] [place] [address], [place] [address] 04 Jan, 2012 [facility] [address] [id number] [address] [place] [address], [place] [address] 30 Dec, 2011 [facility] [address] [id number] [address] [place] [address], [place] [address] 24 Dec, 2011 [facility] [address] [id number] [address] [place] [address], [place] [address] 20 Dec, 2011 [facility] [address] [id number] [address] [place] [address], [place] [address] 13 Dec, 2011 [facility] [address] [id number] [address] [place] [address], [place] [address] 06 Dec, 2011 [facility] [address] [id number] [address] [place] [address], [place] [address] 28 Nov, 2011 [facility] [address] [id number] [address] [place] [address], [place] [address] 27 Nov, 2011 [facility] [address] [id number] [address] [place] [address], [place] [address] 25 Nov, 2011 [facility] [address] [id number] [address] [place] [address], [place] [address] 14 Nov, 2011 [facility] [address] [id number] [address] [place] [address], [place] [address] 10 Nov, 2011 [facility] [address] [id number] [address] [place] [address], [place] [address] Nov, [facility] [address] [id number] [address] [place] [address], [place] [address] Oct, [facility] [address] [id number] [address] [place] [address], [place] [address] Oct, [facility] [address] [id number] [address] [place] [address], [place] [address] Oct, [facility] [address] [id number] [address] [place] [address], [place] [address] Oct, [facility] [address] [id number] [address] [place] [address], [place] [address] Oct, [facility] [address] [id number] [address] [place] [address], [place] [address] Sep, [facility] [address] [id number] [address] [place] [address], [place] [address] Sep, [facility] [address] [id number] [address] [place] [address], [place] [address] Sep, [facility] [address] [id number] [address] [place] [address], [place] [address] 14 Sep, 2011 [facility] [address] [id number] [address] [place] [address], [place] [address] 14 Sep, 2011 [facility] [address] [id number] [address] [place] [address], [place] [address] 13 Sep, 2011 [facility] [address] [id number] [address] [place] [address], [place] [address] 12 Sep, 2011 [facility] [address] [id number] [address] [place] [address], [place] [address] 09 Sep, 2011 [facility] [address] [id number] [address] [place] [address], [place] [address] 05 Sep, 2011 [facility] [address] [id number] [address] [place] [address] [address] Aug, [facility] [address] [id number] [address] [place] [address], [place] [address] Aug, [facility] [address] [id number] [address] [place] [address], [place] [address] Aug, [facility] [address] [id number] [address] [place] [address], [place] [address] Aug, [facility] [address] [id number] [address] [place] [address], [place] [address] Aug, [facility] [address] [id number] [address] [place] [address], [place] [address] Aug, [facility] [address] [id number] [address] [place] [address], [place] [address] Aug, [facility] [address] [id number] [address] [place] [address], [place] [address] Aug, [facility] [address] [id number] [address] [place] [address], [place] [address] Aug, [facility] [address] [id number] [address] [place] [address], [place] [address] Aug, [facility] [address] [id number] [address] [place] [address], [place] [address] Aug, [facility] [address] [id number] [address] [place] [address] Aug, [facility] [address] [id number] [address] [place] [address] Jul, [facility] [address] [id number] [address] [place] [address], [place] [address] Jul, [facility] [address] [id number] [address] [place] [address] Jul, [facility] [address] [id number] [address] [place] [address] Jul, [facility] [address] [id number] [address] [place] [address] Jul, [facility] [address] [id number] [address] [place] [address] Jul, [facility] [address] [id number] [address] [place] [address] Jul, [facility] [address] [id number] [address] [place] [address] Jul, [facility] [address] [id number] [address] [place] [address] Jul, [facility] [address] [id number] [address] [place] [address] Jul, [facility] [address] [id number] [address] [place] [address] Nov, [facility] [address] [id number] [address] [place] [address] Aug, [facility] [address] [id number] [address] [place] [address] Aug, [facility] [address] [id number] [address] [place] [address] Aug, [facility] [address] [id number] [address] [place] [address] Aug, [facility] [address] [id number] [address] [place] [address] Jul, IMMUNIZATIONS No Known Immunizations SOCIAL HISTORY [...] Suicide attempt by hanging 2015 Hospitalization History [facility] 01/30/2018-02/10/20 08 Hospitalization History [facility] 05/04/18-
--- OUTSIDE RECORDS SUMMARY | 2020-04-04 02:03 | XMS REPORT ---
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 Active 24714335 Problem Generalized anxiety disorder 300.02 A ctive 64936246 Problem Obsessive-compulsive disorders 300.3 Active 269701553 Problem Catatonic schizophrenia, 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 409396061 Problem Disorganized schizophrenia, 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 08256996 Problem Paranoid schizophrenia F20.0 Active 17316383 Problem Borderline personality disorder F60.3 Active 17273250 Problem Paranoid schizophrenia, unspecified condition 295.30 Active 75038857 Problem Schizoaffective disorder, depressive type F25.1 Active 46488692 Problem Bipolar disorder, unspecified 296.80 Active 82636157 Problem Schizoaffective disorder, unspecified F25.9 Active 83125609 Problem Attention deficit hyperactivity disorder (ADHD), inattentive type, 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 01842090 Problem Posttraumatic stress disorder F43.10 Active 30789272 Problem High risk medication use Z79.899 Activ e [id number] ALLERGIES No Information ENCOUNTERS Encounter Location Date Diagnosis [facility] [address] [facility] [id number] [address] [place] [id number] Apr, [facility] [address] [facility] [id number] [address] [place] [phone] Apr, Paranoid schizophrenia F20.0 ; Posttraumatic stress disorder F43.10 ; Attention deficit hyperactivity disorder (ADHD), inattentive type, 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 and Borderline personality disorder F60.3 [facility] [address] [facility] [id number] [address] [place] [id number] Mar, Paranoid schizophrenia F20.0 [facility] [address] [facility] [id number] [address] [place] [phone] Mar, Paranoid schizophrenia F20.0 ; Posttraumatic stress disorder F43.10 ; Attention deficit hyperactivity disorder (ADHD), inattentive type, 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 and Borderline personality disorder F60.3 [facility] [address] [facility] [id number] [address] [place] [id number] February, Paranoid schizophrenia F20.0 [facility] [address] [facility] [id number] [address] [place] [id number] Jan, Paranoid schizophrenia F20.0 ; Posttraumatic stress disorder F43.10 ; Attention deficit hyperactivity disorder (ADHD), inattentive type, 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 and Borderline personality disorder F60.3 [facility] [address] [facility] [id number] [address] [place] [id number] Dec, Paranoid schizophrenia F20.0 ; Posttraumatic stress disorder F43.10 ; Attention deficit hyperactivity disorder (ADHD), inattentive type, 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 and Borderline personality disorder F60.3 [facility] [address] [facility] [id number] [address] [place] [id number] Dec, Paranoid schizophrenia F20.0 ; Posttraumatic stress disorder F43.10 ; Attention deficit hyperactivity disorder (ADHD), inattentive type, 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 and Borderline personality disorder F60.3 [facility] [address] [facility] [id number] [address] [place] [id number] Oct, Paranoid schizophrenia F20.0 ; Posttraumatic stress disorder F43.10 ; Attention deficit hyperactivity disorder (ADHD), inattentive type, 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 and Borderline personality disorder F60.3 [facility] [address] [facility] [id number] [address] [place] [id number] Oct, Paranoid schizophrenia F20.0 ; Posttraumatic stress disorder F43.10 ; Attention deficit hyperactivity disorder (ADHD), inattentive type, 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 and Borderline personality disorder F60.3 [facility] [address] [facility] [id number] [address] [place] [id number] Aug, [facility] [address] [id number] [address] [place] [id number] Aug, Paranoid schizophrenia F20.0 ; Posttraumatic stress disorder F43.10 ; Attention deficit hyperactivity disorder (ADHD), inattentive type, 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 and Borderline personality disorder F60.3 [facility] [address] [id number] [address] [place] [id number] Jul, Dry skin dermatitis L85.3 [facility] [address] [id number] [address] [place] [id number] Jul, [facility] [address] [id number] [address] [place] [id number] Jul, Paranoid schizophrenia F20.0 [facility] [address] [id number] [address] [place] [id number] May, Paranoid schizophrenia F20.0 ; Posttraumatic stress disorder F43.10 ; Attention deficit hyperactivity disorder (ADHD), inattentive type, 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 and Borderline personality disorder F60.3 [facility] [address] [id number] [address] [place] [id number] May, [facility] [address] [id number] [address] [place] [id number] May, Paranoid schizophrenia F20.0 [facility] [address] [id number] [address] [place] [id number] May, Paranoid schizophrenia F20.0 ; Posttraumatic stress disorder F43.10 ; Attention deficit hyperactivity disorder (ADHD), inattentive type, 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 and Borderline personality disorder F60.3 [facility] [address] [id number] [address] [place] [id number] Apr, [facility] [address] [id number] [address] [place] [id number] Apr, Paranoid schizophrenia F20.0 ; Posttraumatic stress disorder F43.10 ; Attention deficit hyperactivity disorder (ADHD), inattentive type, 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 and Borderline personality disorder F60.3 [facility] [address] [id number] [address] [place] [id number] Apr, [facility] [address] [id number] [address] [place] [id number] Apr, Schizoaffective disorder, de pressive type F25.1 and Borderline personality disorder F60.3 [facility] [address] [id number] [address] [place] [id number] Apr, Paranoid schizophrenia F20.0 ; Posttraumatic stress disorder F43.10 ; Attention deficit hyperactivity disorder (ADHD), inattentive type, 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 and Borderline personality disorder F60.3 [facility] [address] [id number] [address] [place] [id number] Apr, [facility] [address] [id number] [address] [place] [id number] Apr, Paranoid schizophrenia F20.0 ; Posttraumatic stress disorder F43.10 ; Attention deficit hyperactivity disorder (ADHD), inattentive type, 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 and Borderline personality disorder F60.3 [facility] [address] [id number] [address] [place] [id number] Apr, [facility] [address] [id number] [address] [place] [id number] Mar, Paranoid schizophrenia F20.0 [facility] [address] [id number] [address] [place] [id number] Mar, [facility] [address] [id number] [address] [place] [id number] Mar, Paranoid schizophrenia F20.0 ; Posttraumatic stress disorder F43.10 ; Attention deficit hyperactivity disorder (ADHD), inattentive type, 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 and Borderline personality disorder F60.3 [facility] [address] [id number] [address] [place] [id number] February, Paranoid schizophrenia F20.0 [facility] [address] [id number] [address] [place] [id number] February, Paranoid schizophrenia F20.0 ; Posttraumatic stress disorder F43.10 ; Attention deficit hyperactivity disorder (ADHD), inattentive type, 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 and Borderline personality disorder F60.3 [facility] [address] [id number] [address] [place] [id number] February, Paranoid schizophrenia F20.0 ; Posttraumatic stress disorder F43.10 ; Attention deficit hyperactivity disorder (ADHD), inattentive type, 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 and Borderline personality disorder F60.3 [facility] [address] [id number] [address] [place] [id number] February, [facility] [address] [id number] [address] [place] [id number] February, Paranoid schizophrenia F20.0 [facility] [address] [id number] [address] [place] [id number] February, Paranoid schizophrenia F20.0 [facility] [address] [id number] [address] [place] [id number] February, Paranoid schizophrenia F20.0 ; Posttraumatic stress disorder F43.10 ; Attention deficit hyperactivity disorder (ADHD), inattentive type, 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 and Borderline personality disorder F60.3 [facility] [address] [id number] [address] [place] [id number] Jan, Paranoid schizophrenia F20.0 ; Posttraumatic stress disorder F43.10 ; Attention deficit hyperactivity disorder (ADHD), inattentive type, 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 and Borderline personality disorder F60.3 [facility] [address] [id number] [address] [place] [id number] Jan, Paranoid schizophrenia F20.0 [facility] [address] [id number] [address] [place] [id number] Jan, Paranoid schizophrenia F20.0 [facility] [address] [id number] [address] [place] [id number] Jan, Paranoid schizophrenia F20.0 ; Posttraumatic stress disorder F43.10 ; Attention deficit hyperactivity disorder (ADHD), inattentive type, 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 and Borderline personality disorder F60.3 [facility] [address] [id number] [address] [place] [id number] Dec, [facility] [address] [id number] [address] [place] [id number] Nov, Paranoid schizophrenia F20.0 ; Posttraumatic stress disorder F43.10 ; Attention deficit hyperactivity disorder (ADHD), inattentive type, 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 and Borderline personality disorder F60.3 [facility] [address] [id number] [address] [place] [phone] Nov, [facility] [address] [id number] [address] [place] [id number] Oct, Paranoid schizophrenia F20.0 [facility] [address] [id number] [address] [place] [id number] Oct, Paranoid schizophrenia F20.0 ; Posttraumatic stress disorder F43.10 ; Attention deficit hyperactivity disorder (ADHD), inattentive type, 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 ; Borderline personality disorder F60.3 and Other termination clerk (current) drug therapy Z79.899 [facility] [address] [id number] [address] [place] [id number] Oct, [facility] [address] [id number] [address] [place] [id number] Oct, [facility] [address] [id number] [address] [place] [id number] Sep, [facility] [address] [id number] [address] [place] [id number] Sep, Paranoid schizophrenia F20.0 ; Posttraumatic stress disorder F43.10 ; Attention deficit hyperactivity disorder (ADHD), inattentive type, 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 and Borderline personality disorder F60.3 [facility] [address] [id number] [address] [place] [id number] Sep, Paranoid schizophrenia F20.0 [facility] [address] [id number] [address] [place] [id number] Aug, Paranoid schizophrenia F20.0 ; Posttraumatic stress disorder F43.10 ; Attention deficit hyperactivity disorder (ADHD), inattentive type, 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 and Borderline personality disorder F60.3 [facility] [address] [facility] [id number] [address] [place] [id number] Aug, Paranoid schizophrenia F20.0 ; Posttraumatic stress disorder F43.10 ; Attention deficit hyperactivity disorder (ADHD), inattentive type, 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 and Borderline personality disorder F60.3 [facility] [address] [facility] [id number] [address] [place] [id number] Aug, [facility] [address] [facility] [id number] [address] [place] [id number] Jul, Paranoid schizophrenia F20.0 ; Posttraumatic stress disorder F43.10 ; Attention deficit hyperactivity disorder (ADHD), inattentive type, 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 and Borderline personality disorder F60.3 [facility] [address] [facility] [id number] [address] [place] [id number] Jul, Paranoid schizophrenia F20.0 [facility] [address] [id number] [address] [place] [id number] Jul, Paranoid schizophrenia F20.0 ; Posttraumatic stress disorder F43.10 ; Attention deficit hyperactivity disorder (ADHD), inattentive type, 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 and Borderline personality disorder F60.3 [facility] [address] [facility] [id number] [address] [place] [id number] Jun, Paranoid schizophrenia F20.0 ; Posttraumatic stress disorder F43.10 ; Attention deficit hyperactivity disorder (ADHD), inattentive type, 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 and Borderline personality disorder F60.3 [facility] [address] [facility] [id number] [address] [place] [id number] May, Other termination clerk (current) dr gabriel parra Z79.899 [facility] [address] [id number] [address] [address] May, [facility] [address] [id number] [address] [place] [id number] May, [facility] [address] [id number] [address] [place] [id number] May, Attention deficit hyperactiv ity disorder (ADHD), inattentive type, mild F90.0 [facility] [address] [id number] [address] [place] [id number] May, [facility] [address] [id number] [address] [place] [id number] May, Attention deficit hyperactiv ity disorder (ADHD), inattentive type, mild F90.0 [facility] [address] [id number] [address] [place] [id number] May, Paranoid schizophrenia F20.0 ; Posttraumatic stress disorder F43.10 ; Attention deficit hyperactivity disorder (ADHD), inattentive type, 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 and Other fci (current) drug therapy Z79.899 [facility] [address] [id number] [address] [place] [id number] Apr, Paranoid schizophrenia F20.0 [facility] [address] [id number] [address] [place] [id number] Apr, Paranoid schizophrenia F20.0 ; Posttraumatic stress disorder F43.10 and Attention deficit hyperactivity disorder (ADHD), inattentive type, 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 [facility] [address] [id number] [address] [place] [id number] February, [facility] [address] [id number] [address] [place] [id number] February, Paranoid schizophrenia F20.0 ; Posttraumatic stress disorder F43.10 and Attention deficit hyperactivity disorder (ADHD), inattentive type, 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 [facility] [address] [id number] [address] [place] [id number] February, Paranoid schizophrenia F20.0 ; Posttraumatic stress disorder F43.10 and Attention deficit hyperactivity disorder (ADHD), inattentive type, 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 [facility] [address] [id number] [address] [place] [id number] Jan, Paranoid schizophrenia F20.0 ; Posttraumatic stress disorder F43.10 and Attention deficit hyperactivity disorder (ADHD), inattentive type, 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 [facility] [address] [id number] [address] [place] [id number] Dec, Dental examination Z01.20 [facility] [address] [id number] [address] [place] [address] [id number] Nov, Dental examination Z01.20 [facility] [address] [id number] [address] [place] [address] [id number] Nov, Dental examination Z01.20 [facility] [address] [id number] [address] [place] [address] [id number] Nov, Dental caries K02.9 [facility] [address] [facility] [id number] [address] [place] [id number] Nov, High risk medication use Z79 .899 [facility] [address] [id number] [address] [place] [id number] Nov, Paranoid schizophrenia F20.0 ; Posttraumatic stress disorder F43.10 ; Attention deficit hyperactivity disorder (ADHD), inattentive type, 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 and Borderline personality disorder in adult F60.3 [facility] [address] [id number] [address] [place] [address] [id number] Oct, Dental caries K02.9 [facility] [address] [id number] [address] [place] [id number] Sep, Paranoid schizophrenia F20.0 ; Posttraumatic stress disorder F43.10 and Attention deficit hyperactivity disorder (ADHD), inattentive type, 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 [facility] [address] [id number] [address] [place] [id number] Aug, Paranoid schizophrenia F20.0 ; Posttraumatic stress disorder F43.10 and Attention deficit hyperactivity disorder (ADHD), inattentive type, 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 [facility] [address] [id number] [address] [place] [id number] Aug, Strep throat J02.0 and Cough R05 [facility] [address] [id number] [address] [place] [id number] Aug, [facility] [address] [facility] [id number] [address] [place] [id number] Jul, Paranoid schizophrenia F20.0 ; Posttraumatic stress disorder F43.10 and Attention deficit hyperactivity disorder (ADHD), inattentive type, 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 [facility] [address] [facility] [id number] [address] [place] [id number] Jul, [facility] [address] [facility] [id number] [address] [place] [id number] Jun, Paranoid schizophrenia F20.0 ; Posttraumatic stress disorder F43.10 and Attention deficit hyperactivity disorder (ADHD), inattentive type, 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 [facility] [address] [id number] [address] [place] [address] [id number] Jun, Dental examination Z01.20 [facility] [address] [facility] [id number] [address] [place] [id number] Jun, [facility] [address] [facility] [id number] [address] [place] [id number] May, Paranoid schizophrenia F20.0 [facility] [address] [facility] [id number] [address] [place] [id number] May, Paranoid schizophrenia F20.0 ; Posttraumatic stress disorder F43.10 and Attention deficit hyperactivity disorder (ADHD), inattentive type, 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 [facility] [address] [facility] [id number] [address] [place] [id number] May, [facility] [address] [id number] [address] [place] [id number] May, Paranoid schizophrenia F20.0 [facility] [address] [id number] [address] [place] [id number] May, [facility] [address] [id number] [address] [place] [id number] May, Paranoid schizophrenia F20.0 [facility] [address] [id number] [address] [place] [id number] May, Schizoaffective disorder, un specified F25.9 [facility] [address] [id number] [address] [place] [id number] May, Schizoaffective disorder, un specified F25.9 [facility] [address] [id number] [address] [place] [id number] May, [facility] [address] [id number] [address] [place] [id number] May, Paranoid schizophrenia F20.0 [facility] [address] [id number] [address] [place] [phone] May, Paranoid schizophrenia F20.0 ; Posttraumatic stress disorder F43.10 and Attention deficit hyperactivity disorder (ADHD), inattentive type, 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 [facility] [address] [id number] [address] [place] [id number] Mar, [facility] [address] [id number] [address] [place] [id number] Mar, Paranoid schizophrenia F20.0 ; Posttraumatic stress disorder F43.10 and Attention deficit hyperactivity disorder (ADHD), inattentive type, 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 [facility] [address] [id number] [address] [place] [id number] 16 Mar, 2016 Paranoid schizophrenia F20.0 [facility] [address] [id number] [address] [place] [id number] Mar, Paranoid schizophrenia F20.0 ; Attention deficit hyperactivity disorder (ADHD), inattentive type, 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 and Posttraumatic stress disorder F43.10 [facility] [address] [id number] [address] [place] [id number] Mar, [facility] [address] [id number] [address] [place] [id number] Mar, Paranoid schizophrenia F20.0 ; Posttraumatic stress disorder F43.10 and Attention deficit hyperactivity disorder (ADHD), inattentive type, 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 [facility] [address] [id number] [address] [place] [address], [place] [id number] February, [facility] [address] [id number] [address] [place] [id number] February, [facility] [address] [id number] [address] [place] [id number] February, [facility] [address] [id number] [address] [place] [id number] February, [facility] [address] [id number] [address] [place] [id number] Jan, Paranoid schizophrenia F20.0 [facility] [address] [id number] [address] [place] [address] [id number] Jan, Dental examination Z01.20 [facility] [address] [id number] [address] [place] [address] [id number] Jan, Dental caries K02.9 [facility] [address] [id number] [address] [place] [address] [id number] Jan, Dental examination Z01.20 [facility] [address] [id number] [address] [place] [address] [id number] Dec, Encounter for dental examina tion Z01.20 [facility] [address] [id number] [address] [place] [id number] Dec, Paranoid schizophrenia F20.0 [facility] [address] [id number] [address] [place] [address] [id number] Dec, 2015 Dental examination Z01.20 [facility] [address] [id number] [address] [place] [id number] Dec, [facility] [address] [facility] [id number] [address] [place] [id number] Dec, Paranoid schizophrenia F20.0 ; Posttraumatic stress disorder F43.10 and Attention deficit hyperactivity disorder (ADHD), inattentive type, 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 [facility] [address] [facility] [id number] [address] [place] [id number] Nov, Schizoaffective disorder, un specified F25.9 [facility] [address] [id number] [address] [place] [id number] Oct, Paranoid schizophrenia F20.0 [facility] [address] [facility] [id number] [address] [place] [id number] Oct, [facility] [address] [facility] [id number] [address] [place] [id number] Sep, Paranoid schizophrenia F20.0 ; Posttraumatic stress disorder F43.10 and Attention deficit hyperactivity disorder (ADHD), inattentive type, 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 [facility] [address] [facility] [id number] [address] [place] [id number] Sep, [facility] [address] [facility] [id number] [address] [place] [id number] Sep, Paranoid schizophrenia F20.0 ; Posttraumatic stress disorder F43.10 and Attention deficit hyperactivity disorder (ADHD), inattentive type, 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 [facility] [address] [facility] [id number] [address] [place] [id number] Aug, Paranoid schizophrenia F20.0 [facility] [address] [facility] [id number] [address] [place] [address] Aug, [facility] [address] [facility] [id number] [address] [place] [address] Aug, Posttraumatic stress disorde r F43.10 ; Paranoid schizophrenia F20.0 and Attention deficit hyperactivity disorder (ADHD), inattentive type, 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 [facility] [address] [facility] [id number] [address] [place] [address] Jul, Bipolar disorder, unspecifie d F31.9 [facility] [address] [facility] [id number] [address] [place] [address] Jul, [facility] [address] [facility] [id number] [address] [place] [address] Jun, [facility] [address] [id number] [address] [place] [address] Jun, Schizoaffective disorder, ch ronic 295.72 ; Posttraumatic stress disorder 309.81 and Attention deficit disorder of childhood without mention of hyperactivity 314.00 [facility] [address] [facility] [id number] [address] [place] [address] May, [facility] [address] [id number] [address] [place] [address] May, [facility] [address] [id number] [address] [place] [address] May, Schizoaffective disorder, ch ronic 295.72 ; Posttraumatic stress disorder 309.81 ; Attention deficit disorder of childhood without mention of hyperactivity 314.00 and Bipolar disorder, unspecified 296.80 [facility] [address] [id number] [address] [place] [address] Apr, Schizoaffective disorder, ch ronic 295.72 [facility] [address] [id number] [address] [place] [address] Apr, [facility] [address] [facility] [id number] [address] [place] [address] Apr, Schizoaffective disorder, ch ronic 295.72 ; Posttraumatic stress disorder 309.81 and Attention deficit disorder of childhood without mention of hyperactivity 314.00 [facility] [address] [facility] [id number] [address] [place] [address] Mar, Disorganized schizophrenia, 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 [facility] [address] [id number] [address] [place] [id number] Mar, [facility] [address] [id number] [address] [place] [id number] Mar, [facility] [address] [id number] [address] [place] [address] Mar, [facility] [address] [id number] [address] [place] [id number] Mar, [facility] [address] [id number] [address] [place] [address] February, Schizoaffective disorder, ch ronic 295.72 [facility] [address] [facility] [id number] [address] [place] [address] February, [facility] [address] [facility] [id number] [address] [place] [address] February, Attention 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 ; Posttraumatic stress disorder 309.81 and Schizoaffective disorder, chronic 295.72 [facility] [address] [id number] [address] [place] [address] Jan, [facility] [address] [facility] [id number] [address] [place] [id number] Jan, [facility] [address] [facility] [id number] [address] [place] [id number] Jan, [facility] [address] [id number] [address] [place] [address] Dec, [facility] [address] [id number] [address] [place] [id number] Dec, [facility] [address] [facility] [id number] [address] [place] [phone] Dec, [facility] [address] [id number] [address] [place] [id number] Dec, [facility] [address] [id number] [address] [place] [address], [place] [address] Dec, [facility] [address] [id number] [address] [place] [address], [place] [address] Dec, [facility] [address] [id number] [address] [place] [address], [place] [address] Dec, [facility] [address] [id number] [address] [place] [address], [place] [address] Dec, [facility] [address] [id number] [address] [place] [address], [place] [address] Nov, [facility] [address] [id number] [address] [place] [address], [place] [address] Nov, [facility] [address] [id number] [address] [place] [address], [place] [address] Nov, 2014 [facility] [address] [id number] [address] [place] [address], [place] [address] Nov, 2014 [facility] [address] [id number] [address] [place] [address], [place] [address] Nov, 2014 [facility] [address] [id number] [address] [place] [address], [place] [address] Nov, 2014 [facility] [address] [id number] [address] [place] [address], [place] [address] Nov, 2014 [facility] [address] [id number] [address] [place] [address], [place] [address] Nov, [facility] [address] [id number] [address] [place] [address], [place] [address] Nov, 2014 [facility] [address] [id number] [address] [place] [address], [place] [address] Nov, 2014 [facility] [address] [id number] [address] [place] [address], [place] [address] Oct, [facility] [address] [id number] [address] [place] [address], [place] [address] Oct, [facility] [address] [id number] [address] [place] [address], [place] [address] Oct, [facility] [address] [id number] [address] [place] [address], [place] [address] 15 Oct, 2014 [facility] [address] [id number] [address] [place] [address], [place] [address] 15 Oct, 2014 [facility] [address] [id number] [address] [place] [address], [place] [address] Oct, [facility] [address] [id number] [address] [place] [address], [place] [address] Oct, [facility] [address] [id number] [address] [place] [address], [place] [address] 17 Sep, 2014 [facility] [address] [id number] [address] [place] [address], [place] [address] 17 Sep, 2014 [facility] [address] [id number] [address] [place] [address], [place] [address] 15 Sep, 2014 [facility] [address] [id number] [address] [place] [address], [place] [address] 15 Sep, 2014 [facility] [address] [id number] [address] [place] [address], [place] [address] 20 Aug, 2014 [facility] [address] [id number] [address] [place] [address], [place] [address] 20 Aug, 2014 [facility] [address] [id number] [address] [place] [address], [place] [address] 14 Aug, 2014 [facility] [address] [id number] [address] [place] [address], [place] [address] 14 Aug, 2014 [facility] [address] [id number] [address] [place] [address], [place] [address] 14 Aug, 2014 [facility] [address] [id number] [address] [place] [address], [place] [address] 14 Aug, 2014 [facility] [address] [id number] [address] [place] [address], [place] [address] 29 Jul, 2014 [facility] [address] [id number] [address] [place] [address], [place] [address] 29 Jul, 2014 [facility] [address] [id number] [address] [place] [address], [place] [address] 24 Jul, 2014 [facility] [address] [id number] [address] [place] [address], [place] [address] 24 Jul, 2014 [facility] [address] [id number] [address] [place] [address], [place] [address] 15 Jul, 2014 [facility] [address] [id number] [address] [place] [address], [place] [address] 15 Jul, 2014 [facility] [address] [id number] [address] [place] [address], [place] [address] 27 Sep, 2013 [facility] [address] [id number] [address] [place] [address], [place] [address] 27 Sep, 2013 [facility] [address] [id number] [address] [place] [address], [place] [address] 26 Sep, 2013 [facility] [address] [id number] [address] [place] [address], [place] [address] 26 Sep, 2013 [facility] [address] [id number] [address] [place] [address], [place] [address] 26 Sep, 2013 [facility] [address] [id number] [address] [place] [address], [place] [address] 26 Sep, 2013 [facility] [address] [id number] [address] [place] [address], [place] [address] 16 Sep, 2013 [facility] [address] [id number] [address] [place] [address], [place] [address] 16 Sep, 2013 [facility] [address] [id number] [address] [place] [address], [place] [address] 16 Sep, 2013 [facility] [address] [id number] [facility] [place] [address] Jun, [facility] [address] [id number] [facility] [place] [address] Jun, [facility] [address] [id number] [address] [place] [address], [place] [address] May, [facility] [address] [id number] [address] [place] [address], [place] [address] May, [facility] [address] [id number] [address] [place] [address], [place] [address] May, [facility] [address] [id number] [address] [place] [address], [place] [address] May, [facility] [address] [id number] [address] [place] [address], [place] [address] May, [facility] [address] [id number] [address] [place] [address], [place] [address] May, [facility] [address] [id number] [address] [place] [address], [place] [address] May, [facility] [address] [id number] [address] [place] [address], [place] [address] May, [facility] [address] [id number] [address] [place] [address], [place] [address] May, [facility] [address] [id number] [address] [place] [address], [place] [address] May, [facility] [address] [id number] [address] [place] [address], [place] [address] Apr, [facility] [address] [id number] [address] [place] [address], [place] [address] Apr, [facility] [address] [id number] [address] [place] [address], [place] [address] Apr, [facility] [address] [id number] [address] [place] [address], [place] [address] Apr, [facility] [address] [id number] [facility] [place] [address] Apr, [facility] [address] [id number] [address] [place] [address], [place] [address] Apr, [facility] [address] [id number] [facility] [place] [address] Apr, [facility] [address] [id number] [address] [place] [address], [place] [address] Apr, [facility] [address] [id number] [address] [place] [address], [place] [address] Apr, [facility] [address] [id number] [address] [place] [address], [place] [address] Apr, [facility] [address] [id number] [address] [place] [address], [place] [address] Mar, [facility] [address] [id number] [address] [place] [address], [place] [address] Mar, [facility] [address] [id number] [address] [place] [address], [place] [address] Mar, [facility] [address] [id number] [address] [place] [address], [place] [address] 24 Mar, 2014 [facility] [address] [id number] [address] [place] [address], [place] [address] Mar, [facility] [address] [id number] [address] [place] [address], [place] [address] 18 Mar, 2014 [facility] [address] [id number] [address] [place] [address], [place] [address] 18 Mar, 2014 [facility] [address] [id number] [address] [place] [address], [place] [address] 16 Mar, 2014 [facility] [address] [id number] [address] [place] [address], [place] [address] 16 Mar, 2014 [facility] [address] [id number] [facility] [place] [address] 13 Mar, 2014 [facility] [address] [id number] [address] [place] [address], [place] [address] Mar, [facility] [address] [id number] [facility] [place] [address] Mar, [facility] [address] [id number] [address] [place] [address], [place] [address] Mar, [facility] [address] [id number] [address] [place] [address], [place] [address] Mar, [facility] [address] [id number] [address] [place] [address], [place] [address] Mar, [facility] [address] [id number] [address] [place] [address], [place] [address] Mar, [facility] [address] [id number] [address] [place] [address], [place] [address] Mar, [facility] [address] [id number] [address] [place] [address], [place] [address] Mar, [facility] [address] [id number] [address] [place] [address], [place] [address] Mar, [facility] [address] [id number] [address] [place] [address], [place] [address] Mar, [facility] [address] [id number] [address] [place] [address], [place] [address] February, [facility] [address] [id number] [address] [place] [address], [place] [address] February, [facility] [address] [id number] [address] [place] [address], [place] [address] February, [facility] [address] [id number] [address] [place] [address], [place] [address] February, [facility] [address] [id number] [address] [place] [address], [place] [address] February, [facility] [address] [id number] [address] [place] [address], [place] [address] February, [facility] [address] [id number] [address] [place] [address], [place] [address] February, [facility] [address] [id number] [address] [place] [address], [place] [address] February, [facility] [address] [id number] [address] [place] [address], [place] [address] February, [facility] [address] [id number] [address] [place] [address], [place] [address] February, [facility] [address] [id number] [address] [place] [address], [place] [address] February, [facility] [address] [id number] [address] [place] [address], [place] [address] February, [facility] [address] [id number] [address] [place] [address], [place] [address] February, [facility] [address] [id number] [address] [place] [address], [place] [address] February, [facility] [address] [id number] [address] [place] [address], [place] [address] February, [facility] [address] [id number] [address] [place] [address], [place] [address] February, [facility] [address] [id number] [address] [place] [address], [place] [address] February, [facility] [address] [id number] [address] [place] [address], [place] [address] February, [facility] [address] [id number] [address] [place] [address], [place] [address] February, [facility] [address] [id number] [address] [place] [address], [place] [address] February, [facility] [address] [id number] [address] [place] [address], [place] [address] February, [facility] [address] [id number] [facility] [place] [address] Jan, [facility] [address] [id number] [address] [place] [address], [place] [address] 30 Jan, 2014 [facility] [address] [id number] [address] [place] [address], [place] [address] Jan, [facility] [address] [id number] [address] [place] [address], [place] [address] Jan, [facility] [address] [id number] [address] [place] [address], [place] [address] Jan, [facility] [address] [id number] [address] [place] [address], [place] [address] Jan, [facility] [address] [id number] [address] [place] [address], [place] [address] Jan, [facility] [address] [id number] [address] [place] [address], [place] [address] Jan, [facility] [address] [id number] [address] [place] [address], [place] [address] Dec, [facility] [address] [id number] [address] [place] [address], [place] [address] Dec, [facility] [address] [id number] [address] [place] [address], [place] [address] 20 Dec, 2013 [facility] [address] [id number] [address] [place] [address], [place] [address] 19 Dec, 2013 [facility] [address] [id number] [address] [place] [address], [place] [address] 19 Dec, 2013 [facility] [address] [id number] [address] [place] [address], [place] [address] 15 Dec, 2013 [facility] [address] [id number] [address] [place] [address], [place] [address] 15 Dec, 2013 [facility] [address] [id number] [address] [place] [address], [place] [address] 11 Dec, 2013 [facility] [address] [id number] [address] [place] [address], [place] [address] Dec, [facility] [address] [id number] [address] [place] [address], [place] [address] 10 Dec, 2013 [facility] [address] [id number] [address] [place] [address], [place] [address] 18 Nov, 2013 [facility] [address] [id number] [address] [place] [address], [place] [address] Nov, [facility] [address] [id number] [address] [place] [address], [place] [address] Nov, [facility] [address] [id number] [address] [place] [address], [place] [address] Nov, [facility] [address] [id number] [address] [place] [address], [place] [address] Nov, [facility] [address] [id number] [address] [place] [address], [place] [address] Oct, [facility] [address] [id number] [address] [place] [address], [place] [address] Oct, [facility] [address] [id number] [address] [place] [address], [place] [address] Oct, [facility] [address] [id number] [address] [place] [address], [place] [address] Sep, [facility] [address] [id number] [address] [place] [address], [place] [address] Sep, [facility] [address] [id number] [address] [place] [address], [place] [address] Sep, [facility] [address] [id number] [address] [place] [address], [place] [address] Sep, [facility] [address] [id number] [address] [place] [address], [place] [address] Aug, [facility] [address] [id number] [address] [place] [address], [place] [address] Aug, [facility] [address] [id number] [address] [place] [address], [place] [address] Jul, [facility] [address] [id number] [address] [place] [address], [place] [address] Jul, [facility] [address] [id number] [address] [place] [address], [place] [address] Jul, [facility] [address] [id number] [address] [place] [address], [place] [address] Jul, [facility] [address] [id number] [address] [place] [address], [place] [address] Jul, [facility] [address] [id number] [address] [place] [address], [place] [address] Jun, [facility] [address] [id number] [address] [place] [address], [place] [address] 25 Jun, 2013 [facility] [address] [id number] [address] [place] [address], [place] [id number] 19 Jun, 2013 [facility] [address] [id number] [address] [place] [address], [place] [address] 18 Jun, 2013 [facility] [address] [id number] [address] [place] [address], [place] [address] 16 Jun, 2013 [facility] [address] [id number] [address] [place] [id number] 12 Jun, 2013 [facility] [address] [id number] [address] [place] [address], [place] [address] 11 Jun, 2013 [facility] [address] [id number] [address] [place] [address], [place] [address] 30 May, 2013 [facility] [address] [id number] [address] [place] [address], [place] [address] May, [facility] [address] [id number] [address] [place] [address], [place] [address] Apr, [facility] [address] [id number] [address] [place] [address], [place] [address] Apr, [facility] [address] [id number] [address] [place] [address], [place] [address] Apr, [facility] [address] [id number] [address] [place] [address], [place] [address] Mar, [facility] [address] [id number] [address] [place] [address], [place] [address] Mar, [facility] [address] [id number] [address] [place] [address], [place] [address] February, [facility] [address] [id number] [address] [place] [address], [place] [address] February, [facility] [address] [id number] [address] [place] [address], [place] [address] February, [facility] [address] [id number] [address] [place] [address], [place] [address] February, [facility] [address] [id number] [address] [place] [address], [place] [address] Jan, [facility] [address] [id number] [address] [place] [address], [place] [address] 17 Jan, 2013 [facility] [address] [id number] [address] [place] [address], [place] [address] 16 Jan, 2013 [facility] [address] [id number] [address] [place] [address], [place] [address] 29 Dec, 2012 [facility] [address] [id number] [address] [place] [address], [place] [address] Dec, [facility] [address] [id number] [address] [place] [address], [place] [address] Dec, [facility] [address] [id number] [address] [place] [address], [place] [address] Dec, [facility] [address] [id number] [address] [place] [address], [place] [address] Nov, [facility] [address] [id number] [address] [place] [address], [place] [address] Nov, [facility] [address] [id number] [address] [place] [address], [place] [address] Oct, [facility] [address] [id number] [address] [place] [address], [place] [address] Oct, [facility] [address] [id number] [address] [place] [address], [place] [address] Oct, [facility] [address] [id number] [address] [place] [address], [place] [address] Oct, [facility] [address] [id number] [address] [place] [address], [place] [address] Aug, [facility] [address] [id number] [address] [place] [address], [place] [address] Aug, [facility] [address] [id number] [address] [place] [address], [place] [address] Jun, [facility] [address] [id number] [address] [place] [address] May, [facility] [address] [id number] [address] [place] [address], [place] [address] May, [facility] [address] [id number] [address] [place] [address] Apr, [facility] [address] [id number] [address] [place] [address], [place] [address] Apr, [facility] [address] [id number] [address] [place] [address], [place] [address] Apr, [facility] [address] [id number] [address] [place] [address], [place] [address] Mar, [facility] [address] [id number] [address] [place] [id number] 19 Mar, 2012 [facility] [address] [id number] [address] [place] [address], [place] [address] 13 Mar, 2012 [facility] [address] [id number] [address] [place] [address], [place] [address] Mar, [facility] [address] [id number] [address] [place] [address], [place] [address] Mar, [facility] [address] [id number] [address] [place] [address], [place] [address] February, [facility] [address] [id number] [address] [place] [address], [place] [address] February, [facility] [address] [id number] [address] [place] [address], [place] [address] February, [facility] [address] [id number] [address] [place] [address], [place] [address] February, [facility] [address] [id number] [address] [place] [address], [place] [address] February, [facility] [address] [id number] [address] [place] [address], [place] [address] February, [facility] [address] [id number] [address] [place] [address], [place] [address] February, [facility] [address] [id number] [address] [place] [address], [place] [address] 25 Jan, 2012 [facility] [address] [id number] [address] [place] [address], [place] [address] 18 Jan, 2012 [facility] [address] [id number] [address] [place] [address], [place] [address] 17 Jan, 2012 [facility] [address] [id number] [address] [place] [address], [place] [address] 13 Jan, 2012 [facility] [address] [id number] [address] [place] [address], [place] [address] 10 Jan, 2012 [facility] [address] [id number] [address] [place] [address], [place] [address] 04 Jan, 2012 [facility] [address] [id number] [address] [place] [address], [place] [address] 30 Dec, 2011 [facility] [address] [id number] [address] [place] [address], [place] [address] 24 Dec, 2011 [facility] [address] [id number] [address] [place] [address], [place] [address] 20 Dec, 2011 [facility] [address] [id number] [address] [place] [address], [place] [address] 13 Dec, 2011 [facility] [address] [id number] [address] [place] [address], [place] [address] 06 Dec, 2011 [facility] [address] [id number] [address] [place] [address], [place] [address] Nov, [facility] [address] [id number] [address] [place] [address], [place] [address] Nov, [facility] [address] [id number] [address] [place] [address], [place] [address] Nov, [facility] [address] [id number] [address] [place] [address], [place] [address] 14 Nov, 2011 [facility] [address] [id number] [address] [place] [address], [place] [address] Nov, [facility] [address] [id number] [address] [place] [address], [place] [address] Nov, [facility] [address] [id number] [address] [place] [address], [place] [address] Oct, [facility] [address] [id number] [address] [place] [address], [place] [address] Oct, [facility] [address] [id number] [address] [place] [address], [place] [address] Oct, [facility] [address] [id number] [address] [place] [address], [place] [address] Oct, [facility] [address] [id number] [address] [place] [address], [place] [address] Oct, [facility] [address] [id number] [address] [place] [address], [place] [address] Sep, [facility] [address] [id number] [address] [place] [address], [place] [address] Sep, [facility] [address] [id number] [address] [place] [address], [place] [address] 20 Sep, 2011 [facility] [address] [id number] [address] [place] [address], [place] [id number] 14 Sep, 2011 [facility] [address] [id number] [address] [place] [address], [place] [address] 14 Sep, 2011 [facility] [address] [id number] [address] [place] [address], [place] [address] Sep, [facility] [address] [id number] [address] [place] [address], [place] [address] Sep, [facility] [address] [id number] [address] [place] [address], [place] [address] Sep, [facility] [address] [id number] [address] [place] [address], [place] [address] 05 Sep, 2011 [facility] [address] [id number] [address] [place] [address], [place] [address] Aug, [facility] [address] [id number] [address] [place] [address], [place] [address] Aug, [facility] [address] [id number] [address] [place] [address], [place] [address] Aug, [facility] [address] [id number] [address] [place] [address], [place] [address] Aug, [facility] [address] [id number] [address] [place] [address], [place] [address] Aug, [facility] [address] [id number] [address] [place] [address], [place] [address] Aug, [facility] [address] [id number] [address] [place] [address], [place] [address] Aug, [facility] [address] [id number] [address] [place] [address], [place] [address] Aug, [facility] [address] [id number] [address] [place] [address], [place] [address] Aug, [facility] [address] [id number] [address] [place] [address], [place] [address] Aug, [facility] [address] [id number] [address] [place] [address], [place] [address] Aug, [facility] [address] [id number] [address] [place] [address], [place] [address] Aug, [facility] [address] [id number] [address] [place] [address], [place] [address] Jul, [facility] [address] [id number] [address] [place] [address], [place] [address] Jul, [facility] [address] [id number] [address] [place] [address], [place] [address] 24 Jul, 2011 [facility] [address] [id number] [address] [place] [address], [place] [address] Jul, [facility] [address] [id number] [address] [place] [address], [place] [address] 20 Jul, 2011 [facility] [address] [id number] [address] [place] [address], [place] [address] Jul, [facility] [address] [id number] [address] [place] [address], [place] [address] 18 Jul, 2011 [facility] [address] [id number] [address] [place] [address], [place] [address] 11 Jul, 2011 [facility] [address] [id number] [address] [place] [address], [place] [address] Jul, [facility] [address] [facility] [id number] [address] [place] [address] Jul, [facility] [address] [facility] [id number] [address] [place] [address] Nov, [facility] [address] [facility] [id number] [address] [place] [address] Aug, [facility] [address] [facility] [id number] [address] [place] [address] Aug, [facility] [address] [facility] [id number] [address] [place] [address] Aug, [facility] [address] [facility] [id number] [address] [place] [address] Aug, [facility] [address] [facility] [id number] [address] [place] [address] Jul, IMMUNIZATIONS No Known Immunizations SOCIAL HISTORY Never Assessed REASON FOR VISIT PLAN OF CARE VITAL SIGNS MEDICATIONS Unknown Medications RESULTS No Results PROCEDURES Procedure Date Ordered Result Body Site THER/PROPH/DIAG INJ, SC/IM Nov 07, 2014 INSTRUCTIONS MEDICATIONS ADMINISTERED No Known Medications MEDICAL (GENERAL) HISTORY Type Description Date Medical History diabetes Medical History thyroid Surgical History appendix Surgical History gallbladder Surgical History eyes Surgical History hip Surgical History MRI on back and pelvis 06/08 Hospitalization History surgeries Hospitalization History [facility] Suicide attempt by hanging 2015 Hospitalization History [facility] 01/30/2018-02/10/20 08 Hospitalization History [facility] 05/04/18-
--- OUTSIDE RECORDS SUMMARY | 2020-04-04 02:04 | XMS REPORT ---
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 Active 22778419 Problem Generalized anxiety disorder 300.02 A ctive 88345664 Problem Obsessive-compulsive disorders 300.3 Active 283021823 Problem Catatonic schizophrenia, 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 355045255 Problem Disorganized schizophrenia, 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 53582057 Problem Paranoid schizophrenia F20.0 Active 69407872 Problem Borderline personality disorder F60.3 Active 65533663 Problem Paranoid schizophrenia, unspecified condition 295.30 Active 09641691 Problem Schizoaffective disorder, depressive type F25.1 Active 89230481 Problem Bipolar disorder, unspecified 296.80 Active 88201634 Problem Schizoaffective disorder, unspecified F25.9 Active 52280235 Problem Attention deficit hyperactivity disorder (ADHD), inattentive type, 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 49295505 Problem Posttraumatic stress disorder F43.10 Active 39252363 Problem High risk medication use Z79.899 Activ e [id number] ALLERGIES No Information ENCOUNTERS Encounter Location Date Diagnosis [facility] [address] [facility] [id number] [address] [place] [phone] Apr, [facility] [address] [facility] [id number] [address] [place] [phone] Apr, Paranoid schizophrenia F20.0 ; Posttraumatic stress disorder F43.10 ; Attention deficit hyperactivity disorder (ADHD), inattentive type, 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 and Borderline personality disorder F60.3 [facility] [address] [facility] [id number] [address] [place] [phone] Mar, Paranoid schizophrenia F20.0 [facility] [address] [facility] [id number] [address] [place] [phone] Mar, Paranoid schizophrenia F20.0 ; Posttraumatic stress disorder F43.10 ; Attention deficit hyperactivity disorder (ADHD), inattentive type, 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 and Borderline personality disorder F60.3 [facility] [address] [facility] [id number] [address] [place] [phone] February, Paranoid schizophrenia F20.0 [facility] [address] [facility] [id number] [address] [place] [phone] Jan, Paranoid schizophrenia F20.0 ; Posttraumatic stress disorder F43.10 ; Attention deficit hyperactivity disorder (ADHD), inattentive type, 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 and Borderline personality disorder F60.3 [facility] [address] [facility] [id number] [address] [place] [phone] Dec, Paranoid schizophrenia F20.0 ; Posttraumatic stress disorder F43.10 ; Attention deficit hyperactivity disorder (ADHD), inattentive type, 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 and Borderline personality disorder F60.3 [facility] [address] [facility] [id number] [address] [place] [phone] Dec, Paranoid schizophrenia F20.0 ; Posttraumatic stress disorder F43.10 ; Attention deficit hyperactivity disorder (ADHD), inattentive type, 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 and Borderline personality disorder F60.3 [facility] [address] [facility] [id number] [address] [place] [phone] Oct, Paranoid schizophrenia F20.0 ; Posttraumatic stress disorder F43.10 ; Attention deficit hyperactivity disorder (ADHD), inattentive type, 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 and Borderline personality disorder F60.3 [facility] [address] [facility] [id number] [address] [place] [phone] Oct, Paranoid schizophrenia F20.0 ; Posttraumatic stress disorder F43.10 ; Attention deficit hyperactivity disorder (ADHD), inattentive type, 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 and Borderline personality disorder F60.3 [facility] [address] [facility] [id number] [address] [place] [phone] Aug, [facility] [address] [id number] [address] [place] [phone] Aug, Paranoid schizophrenia F20.0 ; Posttraumatic stress disorder F43.10 ; Attention deficit hyperactivity disorder (ADHD), inattentive type, 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 and Borderline personality disorder F60.3 [facility] [address] [id number] [address] [place] [phone] Jul, Dry skin dermatitis L85.3 [facility] [address] [id number] [address] [place] [phone] Jul, [facility] [address] [id number] [address] [place] [phone] Jul, Paranoid schizophrenia F20.0 [facility] [address] [id number] [address] [place] [id number] May, Paranoid schizophrenia F20.0 ; Posttraumatic stress disorder F43.10 ; Attention deficit hyperactivity disorder (ADHD), inattentive type, 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 and Borderline personality disorder F60.3 [facility] [address] [id number] [address] [place] [phone] May, [facility] [address] [id number] [address] [place] [phone] May, Paranoid schizophrenia F20.0 [facility] [address] [id number] [address] [place] [phone] May, Paranoid schizophrenia F20.0 ; Posttraumatic stress disorder F43.10 ; Attention deficit hyperactivity disorder (ADHD), inattentive type, 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 and Borderline personality disorder F60.3 [facility] [address] [id number] [address] [place] [phone] Apr, [facility] [address] [id number] [address] [place] [phone] Apr, Paranoid schizophrenia F20.0 ; Posttraumatic stress disorder F43.10 ; Attention deficit hyperactivity disorder (ADHD), inattentive type, 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 and Borderline personality disorder F60.3 [facility] [address] [id number] [address] [place] [phone] Apr, [facility] [address] [id number] [address] [place] [phone] Apr, Schizoaffective disorder, de pressive type F25.1 and Borderline personality disorder F60.3 [facility] [address] [id number] [address] [place] [phone] Apr, Paranoid schizophrenia F20.0 ; Posttraumatic stress disorder F43.10 ; Attention deficit hyperactivity disorder (ADHD), inattentive type, 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 and Borderline personality disorder F60.3 [facility] [address] [id number] [address] [place] [phone] Apr, [facility] [address] [id number] [address] [place] [phone] Apr, Paranoid schizophrenia F20.0 ; Posttraumatic stress disorder F43.10 ; Attention deficit hyperactivity disorder (ADHD), inattentive type, 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 and Borderline personality disorder F60.3 [facility] [address] [id number] [address] [place] [phone] Apr, [facility] [address] [id number] [address] [place] [phone] Mar, Paranoid schizophrenia F20.0 [facility] [address] [id number] [address] [place] [phone] Mar, [facility] [address] [id number] [address] [place] [phone] Mar, Paranoid schizophrenia F20.0 ; Posttraumatic stress disorder F43.10 ; Attention deficit hyperactivity disorder (ADHD), inattentive type, 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 and Borderline personality disorder F60.3 [facility] [address] [id number] [address] [place] [phone] February, Paranoid schizophrenia F20.0 [facility] [address] [id number] [address] [place] [phone] February, Paranoid schizophrenia F20.0 ; Posttraumatic stress disorder F43.10 ; Attention deficit hyperactivity disorder (ADHD), inattentive type, 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 and Borderline personality disorder F60.3 [facility] [address] [id number] [address] [place] [phone] February, Paranoid schizophrenia F20.0 ; Posttraumatic stress disorder F43.10 ; Attention deficit hyperactivity disorder (ADHD), inattentive type, 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 and Borderline personality disorder F60.3 [facility] [address] [id number] [address] [place] [phone] February, [facility] [address] [id number] [address] [place] [phone] February, Paranoid schizophrenia F20.0 [facility] [address] [id number] [address] [place] [phone] February, Paranoid schizophrenia F20.0 [facility] [address] [id number] [address] [place] [phone] February, Paranoid schizophrenia F20.0 ; Posttraumatic stress disorder F43.10 ; Attention deficit hyperactivity disorder (ADHD), inattentive type, 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 and Borderline personality disorder F60.3 [facility] [address] [id number] [address] [place] [phone] Jan, Paranoid schizophrenia F20.0 ; Posttraumatic stress disorder F43.10 ; Attention deficit hyperactivity disorder (ADHD), inattentive type, 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 and Borderline personality disorder F60.3 [facility] [address] [id number] [address] [place] [phone] Jan, Paranoid schizophrenia F20.0 [facility] [address] [id number] [address] [place] [phone] Jan, Paranoid schizophrenia F20.0 [facility] [address] [id number] [address] [place] [phone] Jan, Paranoid schizophrenia F20.0 ; Posttraumatic stress disorder F43.10 ; Attention deficit hyperactivity disorder (ADHD), inattentive type, 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 and Borderline personality disorder F60.3 [facility] [address] [id number] [address] [place] [phone] Dec, [facility] [address] [id number] [address] [place] [phone] Nov, Paranoid schizophrenia F20.0 ; Posttraumatic stress disorder F43.10 ; Attention deficit hyperactivity disorder (ADHD), inattentive type, 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3 and Other terminal gauger (current) drug therapy Z79.899 [facility] [address] [id number] [address] [place] [phone] Oct, [facility] [address] [id number] [address] [place] [phone] Oct, [facility] [address] [id number] [address] [place] [phone] Sep, [facility] [address] [id number] [address] [place] [phone] Sep, Paranoid schizophrenia F20.0 ; Posttraumatic stress disorder F43.10 ; Attention deficit hyperactivity disorder (ADHD), inattentive type, 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 and Borderline personality disorder F60.3 [facility] [address] [id number] [address] [place] [phone] Sep, Paranoid schizophrenia F20.0 [facility] [address] [id number] [address] [place] [id number] Aug, Paranoid schizophrenia F20.0 ; Posttraumatic stress disorder F43.10 ; Attention deficit hyperactivity disorder (ADHD), inattentive type, 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 and Borderline personality disorder F60.3 [facility] [address] [facility] [id number] [address] [place] [phone] Aug, Paranoid schizophrenia F20.0 ; Posttraumatic stress disorder F43.10 ; Attention deficit hyperactivity disorder (ADHD), inattentive type, 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 and Borderline personality disorder F60.3 [facility] [address] [facility] [id number] [address] [place] [phone] Aug, [facility] [address] [facility] [id number] [address] [place] [phone] Jul, Paranoid schizophrenia F20.0 ; Posttraumatic stress disorder F43.10 ; Attention deficit hyperactivity disorder (ADHD), inattentive type, 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 and Borderline personality disorder F60.3 [facility] [address] [facility] [id number] [address] [place] [phone] Jul, Paranoid schizophrenia F20.0 [facility] [address] [id number] [address] [place] [phone] Jul, Paranoid schizophrenia F20.0 ; Posttraumatic stress disorder F43.10 ; Attention deficit hyperactivity disorder (ADHD), inattentive type, 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 and Borderline personality disorder F60.3 [facility] [address] [facility] [id number] [address] [place] [phone] Jun, Paranoid schizophrenia F20.0 ; Posttraumatic stress disorder F43.10 ; Attention deficit hyperactivity disorder (ADHD), inattentive type, 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 and Borderline personality disorder F60.3 [facility] [address] [facility] [id number] [address] [place] [phone] May, Other terminal gauger (current) dr gabriel parra Z79.899 [facility] [address] [id number] [address] [address] May, [facility] [address] [id number] [address] [place] [phone] May, [facility] [address] [id number] [address] [place] [phone] May, Attention deficit hyperactiv ity disorder (ADHD), inattentive type, mild F90.0 [facility] [address] [id number] [address] [place] [phone] May, [facility] [address] [id number] [address] [place] [phone] May, Attention deficit hyperactiv ity disorder (ADHD), inattentive type, mild F90.0 [facility] [address] [id number] [address] [place] [phone] May, Paranoid schizophrenia F20.0 ; Posttraumatic stress disorder F43.10 ; Attention deficit hyperactivity disorder (ADHD), inattentive type, 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 and Other nursing home (current) drug therapy Z79.899 [facility] [address] [id number] [address] [place] [phone] Apr, Paranoid schizophrenia F20.0 [facility] [address] [id number] [address] [place] [phone] Apr, Paranoid schizophrenia F20.0 ; Posttraumatic stress disorder F43.10 and Attention deficit hyperactivity disorder (ADHD), inattentive type, 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 [facility] [address] [id number] [address] [place] [phone] February, [facility] [address] [id number] [address] [place] [phone] February, Paranoid schizophrenia F20.0 ; Posttraumatic stress disorder F43.10 and Attention deficit hyperactivity disorder (ADHD), inattentive type, 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 [facility] [address] [id number] [address] [place] [phone] February, Paranoid schizophrenia F20.0 ; Posttraumatic stress disorder F43.10 and Attention deficit hyperactivity disorder (ADHD), inattentive type, 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 [facility] [address] [id number] [address] [place] [phone] Jan, Paranoid schizophrenia F20.0 ; Posttraumatic stress disorder F43.10 and Attention deficit hyperactivity disorder (ADHD), inattentive type, 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 [facility] [address] [id number] [address] [place] [id number] Dec, Dental examination Z01.20 [facility] [address] [id number] [address] [place] [address] [phone] Nov, Dental examination Z01.20 [facility] [address] [id number] [address] [place] [address] [phone] Nov, Dental examination Z01.20 [facility] [address] [id number] [address] [place] [address] [id number] Nov, Dental caries K02.9 [facility] [address] [facility] [id number] [address] [place] [phone] Nov, High risk medication use Z79 .899 [facility] [address] [id number] [address] [place] [phone] Nov, Paranoid schizophrenia F20.0 ; Posttraumatic stress disorder F43.10 ; Attention deficit hyperactivity disorder (ADHD), inattentive type, 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 and Borderline personality disorder in adult F60.3 [facility] [address] [id number] [address] [place] [address] [id number] Oct, Dental caries K02.9 [facility] [address] [id number] [address] [place] [phone] Sep, Paranoid schizophrenia F20.0 ; Posttraumatic stress disorder F43.10 and Attention deficit hyperactivity disorder (ADHD), inattentive type, 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 [facility] [address] [id number] [address] [place] [phone] Aug, Paranoid schizophrenia F20.0 ; Posttraumatic stress disorder F43.10 and Attention deficit hyperactivity disorder (ADHD), inattentive type, 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 [facility] [address] [id number] [address] [place] [phone] Aug, Strep throat J02.0 and Cough R05 [facility] [address] [id number] [address] [place] [phone] Aug, [facility] [address] [facility] [id number] [address] [place] [phone] Jul, Paranoid schizophrenia F20.0 ; Posttraumatic stress disorder F43.10 and Attention deficit hyperactivity disorder (ADHD), inattentive type, 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 [facility] [address] [facility] [id number] [address] [place] [phone] Jul, [facility] [address] [facility] [id number] [address] [place] [phone] Jun, Paranoid schizophrenia F20.0 ; Posttraumatic stress disorder F43.10 and Attention deficit hyperactivity disorder (ADHD), inattentive type, 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 [facility] [address] [id number] [address] [place] [id number] Jun, Dental examination Z01.20 [facility] [address] [facility] [id number] [address] [place] [phone] Jun, [facility] [address] [facility] [id number] [address] [place] [phone] May, Paranoid schizophrenia F20.0 [facility] [address] [facility] [id number] [address] [place] [phone] May, Paranoid schizophrenia F20.0 ; Posttraumatic stress disorder F43.10 and Attention deficit hyperactivity disorder (ADHD), inattentive type, 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 [facility] [address] [facility] [id number] [address] [place] [phone] May, [facility] [address] [id number] [address] [place] [phone] May, Paranoid schizophrenia F20.0 [facility] [address] [id number] [address] [place] [phone] May, [facility] [address] [id number] [address] [place] [phone] May, Paranoid schizophrenia F20.0 [facility] [address] [id number] [address] [place] [phone] May, Schizoaffective disorder, un specified F25.9 [facility] [address] [id number] [address] [place] [phone] May, Schizoaffective disorder, un specified F25.9 [facility] [address] [id number] [address] [place] [phone] May, [facility] [address] [id number] [address] [place] [phone] May, Paranoid schizophrenia F20.0 [facility] [address] [id number] [address] [place] [phone] May, Paranoid schizophrenia F20.0 ; Posttraumatic stress disorder F43.10 and Attention deficit hyperactivity disorder (ADHD), inattentive type, 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 [facility] [address] [id number] [address] [place] [phone] Mar, [facility] [address] [id number] [address] [place] [phone] Mar, Paranoid schizophrenia F20.0 ; Posttraumatic stress disorder F43.10 and Attention deficit hyperactivity disorder (ADHD), inattentive type, 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 [facility] [address] [id number] [address] [place] [phone] 16 Mar, 2016 Paranoid schizophrenia F20.0 [facility] [address] [id number] [address] [place] [phone] Mar, Paranoid schizophrenia F20.0 ; Attention deficit hyperactivity disorder (ADHD), inattentive type, 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 and Posttraumatic stress disorder F43.10 [facility] [address] [id number] [address] [place] [phone] Mar, [facility] [address] [id number] [address] [place] [phone] Mar, Paranoid schizophrenia F20.0 ; Posttraumatic stress disorder F43.10 and Attention deficit hyperactivity disorder (ADHD), inattentive type, 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 [facility] [address] [id number] [address] [place] [address], [place] [address] February, [facility] [address] [id number] [address] [place] [phone] February, [facility] [address] [id number] [address] [place] [phone] February, [facility] [address] [id number] [address] [place] [phone] February, [facility] [address] [id number] [address] [place] [phone] Jan, Paranoid schizophrenia F20.0 [facility] [address] [id number] [address] [place] [address] [phone] Jan, Dental examination Z01.20 [facility] [address] [id number] [address] [place] [phone] Jan, Dental caries K02.9 [facility] [address] [id number] [address] [place] [address] [phone] Jan, Dental examination Z01.20 [facility] [address] [id number] [address] [place] [address] [phone] Dec, Encounter for dental examina tion Z01.20 [facility] [address] [id number] [address] [place] [phone] Dec, Paranoid schizophrenia F20.0 [facility] [address] [id number] [address] [place] [address] [id number] 15 Dec, 2015 Dental examination Z01.20 [facility] [address] [id number] [address] [place] [id number] Dec, [facility] [address] [facility] [id number] [address] [place] [id number] Dec, Paranoid schizophrenia F20.0 ; Posttraumatic stress disorder F43.10 and Attention deficit hyperactivity disorder (ADHD), inattentive type, 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 [facility] [address] [facility] [id number] [address] [place] [id number] Nov, Schizoaffective disorder, un specified F25.9 [facility] [address] [id number] [address] [place] [id number] Oct, Paranoid schizophrenia F20.0 [facility] [address] [facility] [id number] [address] [place] [id number] Oct, [facility] [address] [facility] [id number] [address] [place] [id number] Sep, Paranoid schizophrenia F20.0 ; Posttraumatic stress disorder F43.10 and Attention deficit hyperactivity disorder (ADHD), inattentive type, 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 [facility] [address] [facility] [id number] [address] [place] [id number] Sep, [facility] [address] [facility] [id number] [address] [place] [phone] Sep, Paranoid schizophrenia F20.0 ; Posttraumatic stress disorder F43.10 and Attention deficit hyperactivity disorder (ADHD), inattentive type, 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 [facility] [address] [facility] [id number] [address] [place] [id number] Aug, Paranoid schizophrenia F20.0 [facility] [address] [facility] [id number] [address] [place] [phone] Aug, [facility] [address] [facility] [id number] [address] [place] [id number] Aug, Posttraumatic stress disorde r F43.10 ; Paranoid schizophrenia F20.0 and Attention deficit hyperactivity disorder (ADHD), inattentive type, 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 [facility] [address] [facility] [id number] [address] [place] [id number] Jul, Bipolar disorder, unspecifie d F31.9 [facility] [address] [facility] [id number] [address] [place] [phone] Jul, [facility] [address] [facility] [id number] [address] [place] [phone] Jun, [facility] [address] [id number] [address] [place] [phone] Jun, Schizoaffective disorder, ch ronic 295.72 ; Posttraumatic stress disorder 309.81 and Attention deficit disorder of childhood without mention of hyperactivity 314.00 [facility] [address] [facility] [id number] [address] [place] [id number] May, [facility] [address] [id number] [address] [place] [phone] May, [facility] [address] [id number] [address] [place] [phone] May, Schizoaffective disorder, ch ronic 295.72 ; Posttraumatic stress disorder 309.81 ; Attention deficit disorder of childhood without mention of hyperactivity 314.00 and Bipolar disorder, unspecified 296.80 [facility] [address] [id number] [address] [place] [phone] Apr, Schizoaffective disorder, ch ronic 295.72 [facility] [address] [id number] [address] [place] [id number] Apr, [facility] [address] [facility] [id number] [address] [place] [phone] Apr, Schizoaffective disorder, ch ronic 295.72 ; Posttraumatic stress disorder 309.81 and Attention deficit disorder of childhood without mention of hyperactivity 314.00 [facility] [address] [facility] [id number] [address] [place] [id number] Mar, Disorganized schizophrenia, 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 [facility] [address] [id number] [address] [place] [phone] Mar, [facility] [address] [id number] [address] [place] [phone] Mar, [facility] [address] [id number] [address] [place] [id number] Mar, [facility] [address] [id number] [address] [place] [id number] Mar, [facility] [address] [id number] [address] [place] [phone] February, Schizoaffective disorder, ch ronic 295.72 [facility] [address] [facility] [id number] [address] [place] [id number] February, [facility] [address] [facility] [id number] [address] [place] [phone] February, Attention 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 ; Posttraumatic stress disorder 309.81 and Schizoaffective disorder, chronic 295.72 [facility] [address] [id number] [address] [place] [phone] Jan, [facility] [address] [facility] [id number] [address] [place] [phone] Jan, [facility] [address] [facility] [id number] [address] [place] [phone] Jan, [facility] [address] [id number] [address] [place] [phone] Dec, [facility] [address] [id number] [address] [place] [id number] Dec, [facility] [address] [facility] [id number] [address] [place] [phone] Dec, [facility] [address] [id number] [address] [place] [id number] Dec, [facility] [address] [id number] [address] [place] [address], [place] [address] Dec, [facility] [address] [id number] [address] [place] [address], [place] [address] Dec, [facility] [address] [id number] [address] [place] [address], [place] [address] Dec, [facility] [address] [id number] [address] [place] [address], [place] [address] Dec, [facility] [address] [id number] [address] [place] [address], [place] [address] Nov, [facility] [address] [id number] [address] [place] [address], [place] [address] Nov, [facility] [address] [id number] [address] [place] [address], [place] [address] Nov, 2014 [facility] [address] [id number] [address] [place] [address], [place] [address] Nov, 2014 [facility] [address] [id number] [address] [place] [address], [place] [address] Nov, 2014 [facility] [address] [id number] [address] [place] [address], [place] [address] Nov, 2014 [facility] [address] [id number] [address] [place] [address], [place] [address] Nov, 2014 [facility] [address] [id number] [address] [place] [address], [place] [address] Nov, [facility] [address] [id number] [address] [place] [address], [place] [address] Nov, 2014 [facility] [address] [id number] [address] [place] [address], [place] [address] Nov, 2014 [facility] [address] [id number] [address] [place] [address], [place] [address] Oct, [facility] [address] [id number] [address] [place] [address], [place] [address] Oct, [facility] [address] [id number] [address] [place] [address], [place] [address] Oct, [facility] [address] [id number] [address] [place] [address], [place] [address] 15 Oct, 2014 [facility] [address] [id number] [address] [place] [address], [place] [address] 15 Oct, 2014 [facility] [address] [id number] [address] [place] [address], [place] [address] Oct, [facility] [address] [id number] [address] [place] [address], [place] [address] Oct, [facility] [address] [id number] [address] [place] [address], [place] [address] 17 Sep, 2014 [facility] [address] [id number] [address] [place] [address], [place] [address] 17 Sep, 2014 [facility] [address] [id number] [address] [place] [address], [place] [address] 15 Sep, 2014 [facility] [address] [id number] [address] [place] [address], [place] [address] 15 Sep, 2014 [facility] [address] [id number] [address] [place] [address], [place] [address] 20 Aug, 2014 [facility] [address] [id number] [address] [place] [address], [place] [address] 20 Aug, 2014 [facility] [address] [id number] [address] [place] [address], [place] [address] 14 Aug, 2014 [facility] [address] [id number] [address] [place] [address], [place] [address] 14 Aug, 2014 [facility] [address] [id number] [address] [place] [address], [place] [address] 14 Aug, 2014 [facility] [address] [id number] [address] [place] [address], [place] [address] 14 Aug, 2014 [facility] [address] [id number] [address] [place] [address], [place] [address] 29 Jul, 2014 [facility] [address] [id number] [address] [place] [address], [place] [address] 29 Jul, 2014 [facility] [address] [id number] [address] [place] [address], [place] [address] 24 Jul, 2014 [facility] [address] [id number] [address] [place] [address], [place] [address] 24 Jul, 2014 [facility] [address] [id number] [address] [place] [address], [place] [address] 15 Jul, 2014 [facility] [address] [id number] [address] [place] [address], [place] [address] 15 Jul, 2014 [facility] [address] [id number] [address] [place] [address], [place] [address] 27 Sep, 2013 [facility] [address] [id number] [address] [place] [address], [place] [address] 27 Sep, 2013 [facility] [address] [id number] [address] [place] [address], [place] [address] 26 Sep, 2013 [facility] [address] [id number] [address] [place] [address], [place] [address] 26 Sep, 2013 [facility] [address] [id number] [address] [place] [address], [place] [address] 26 Sep, 2013 [facility] [address] [id number] [address] [place] [address], [place] [address] 26 Sep, 2013 [facility] [address] [id number] [address] [place] [address], [place] [address] 16 Sep, 2013 [facility] [address] [id number] [address] [place] [address], [place] [address] 16 Sep, 2013 [facility] [address] [id number] [address] [place] [address], [place] [address] 16 Sep, 2013 [facility] [address] [id number] [facility] [place] [address] Jun, [facility] [address] [id number] [facility] [place] [address] Jun, [facility] [address] [id number] [address] [place] [address], [place] [address] May, [facility] [address] [id number] [address] [place] [address], [place] [address] May, [facility] [address] [id number] [address] [place] [address], [place] [address] May, [facility] [address] [id number] [address] [place] [address], [place] [address] May, [facility] [address] [id number] [address] [place] [address], [place] [address] May, [facility] [address] [id number] [address] [place] [address], [place] [address] May, [facility] [address] [id number] [address] [place] [address], [place] [address] May, [facility] [address] [id number] [address] [place] [address], [place] [address] May, [facility] [address] [id number] [address] [place] [address], [place] [address] May, [facility] [address] [id number] [address] [place] [address], [place] [address] May, [facility] [address] [id number] [address] [place] [address], [place] [address] Apr, [facility] [address] [id number] [address] [place] [address], [place] [address] Apr, [facility] [address] [id number] [address] [place] [address], [place] [address] Apr, [facility] [address] [id number] [address] [place] [address], [place] [address] Apr, [facility] [address] [id number] [facility] [place] [address] Apr, [facility] [address] [id number] [address] [place] [address], [place] [address] Apr, [facility] [address] [id number] [facility] [place] [address] Apr, [facility] [address] [id number] [address] [place] [address], [place] [address] Apr, [facility] [address] [id number] [address] [place] [address], [place] [address] Apr, [facility] [address] [id number] [address] [place] [address], [place] [address] Apr, [facility] [address] [id number] [address] [place] [address], [place] [address] Mar, [facility] [address] [id number] [address] [place] [address], [place] [address] Mar, [facility] [address] [id number] [address] [place] [address], [place] [address] Mar, [facility] [address] [id number] [address] [place] [address], [place] [address] 24 Mar, 2014 [facility] [address] [id number] [address] [place] [address], [place] [address] Mar, [facility] [address] [id number] [address] [place] [address], [place] [address] 18 Mar, 2014 [facility] [address] [id number] [address] [place] [address], [place] [address] 18 Mar, 2014 [facility] [address] [id number] [address] [place] [address], [place] [address] 16 Mar, 2014 [facility] [address] [id number] [address] [place] [address], [place] [address] 16 Mar, 2014 [facility] [address] [id number] [facility] [place] [address] 13 Mar, 2014 [facility] [address] [id number] [address] [place] [address], [place] [address] Mar, [facility] [address] [id number] [facility] [place] [address] Mar, [facility] [address] [id number] [address] [place] [address], [place] [address] Mar, [facility] [address] [id number] [address] [place] [address], [place] [address] Mar, [facility] [address] [id number] [address] [place] [address], [place] [address] Mar, [facility] [address] [id number] [address] [place] [address], [place] [address] Mar, [facility] [address] [id number] [address] [place] [address], [place] [address] Mar, [facility] [address] [id number] [address] [place] [address], [place] [address] Mar, [facility] [address] [id number] [address] [place] [address], [place] [address] Mar, [facility] [address] [id number] [address] [place] [address], [place] [address] Mar, [facility] [address] [id number] [address] [place] [address], [place] [address] February, [facility] [address] [id number] [address] [place] [address], [place] [address] February, [facility] [address] [id number] [address] [place] [address], [place] [address] February, [facility] [address] [id number] [address] [place] [address], [place] [address] February, [facility] [address] [id number] [address] [place] [address], [place] [address] February, [facility] [address] [id number] [address] [place] [address], [place] [address] February, [facility] [address] [id number] [address] [place] [address], [place] [address] February, [facility] [address] [id number] [address] [place] [address], [place] [address] February, [facility] [address] [id number] [address] [place] [address], [place] [address] February, [facility] [address] [id number] [address] [place] [address], [place] [address] February, [facility] [address] [id number] [address] [place] [address], [place] [address] February, [facility] [address] [id number] [address] [place] [address], [place] [address] February, [facility] [address] [id number] [address] [place] [address], [place] [address] February, [facility] [address] [id number] [address] [place] [address], [place] [address] February, [facility] [address] [id number] [address] [place] [address], [place] [address] February, [facility] [address] [id number] [address] [place] [address], [place] [address] February, [facility] [address] [id number] [address] [place] [address], [place] [address] February, [facility] [address] [id number] [address] [place] [address], [place] [address] February, [facility] [address] [id number] [address] [place] [address], [place] [address] February, [facility] [address] [id number] [address] [place] [address], [place] [address] February, [facility] [address] [id number] [address] [place] [address], [place] [address] February, [facility] [address] [id number] [facility] [place] [address] Jan, [facility] [address] [id number] [address] [place] [address], [place] [address] 30 Jan, 2014 [facility] [address] [id number] [address] [place] [address], [place] [address] Jan, [facility] [address] [id number] [address] [place] [address], [place] [address] Jan, [facility] [address] [id number] [address] [place] [address], [place] [address] Jan, [facility] [address] [id number] [address] [place] [address], [place] [address] Jan, [facility] [address] [id number] [address] [place] [address], [place] [address] Jan, [facility] [address] [id number] [address] [place] [address], [place] [address] Jan, [facility] [address] [id number] [address] [place] [address], [place] [address] Dec, [facility] [address] [id number] [address] [place] [address], [place] [address] Dec, [facility] [address] [id number] [address] [place] [address], [place] [address] 20 Dec, 2013 [facility] [address] [id number] [address] [place] [address], [place] [address] 19 Dec, 2013 [facility] [address] [id number] [address] [place] [address], [place] [address] 19 Dec, 2013 [facility] [address] [id number] [address] [place] [address], [place] [address] 15 Dec, 2013 [facility] [address] [id number] [address] [place] [address], [place] [address] 15 Dec, 2013 [facility] [address] [id number] [address] [place] [address], [place] [address] 11 Dec, 2013 [facility] [address] [id number] [address] [place] [address], [place] [address] Dec, [facility] [address] [id number] [address] [place] [address], [place] [address] 10 Dec, 2013 [facility] [address] [id number] [address] [place] [address], [place] [address] 18 Nov, 2013 [facility] [address] [id number] [address] [place] [address], [place] [address] Nov, [facility] [address] [id number] [address] [place] [address], [place] [address] Nov, [facility] [address] [id number] [address] [place] [address], [place] [address] Nov, [facility] [address] [id number] [address] [place] [address], [place] [address] Nov, [facility] [address] [id number] [address] [place] [address], [place] [address] Oct, [facility] [address] [id number] [address] [place] [address], [place] [address] Oct, [facility] [address] [id number] [address] [place] [address], [place] [address] Oct, [facility] [address] [id number] [address] [place] [address], [place] [address] Sep, [facility] [address] [id number] [address] [place] [address], [place] [address] Sep, [facility] [address] [id number] [address] [place] [address], [place] [address] Sep, [facility] [address] [id number] [address] [place] [address], [place] [address] Sep, [facility] [address] [id number] [address] [place] [address], [place] [address] Aug, [facility] [address] [id number] [address] [place] [address], [place] [address] Aug, [facility] [address] [id number] [address] [place] [address], [place] [address] Jul, [facility] [address] [id number] [address] [place] [address], [place] [address] Jul, [facility] [address] [id number] [address] [place] [address], [place] [address] Jul, [facility] [address] [id number] [address] [place] [address], [place] [address] Jul, [facility] [address] [id number] [address] [place] [address], [place] [address] Jul, [facility] [address] [id number] [address] [place] [address], [place] [address] Jun, [facility] [address] [id number] [address] [place] [address], [place] [address] 25 Jun, 2013 [facility] [address] [id number] [address] [place] [address], [place] [address] 19 Jun, 2013 [facility] [address] [id number] [address] [place] [address], [place] [address] 18 Jun, 2013 [facility] [address] [id number] [address] [place] [address], [place] [address] 16 Jun, 2013 [facility] [address] [id number] [address] [place] [address] 12 Jun, 2013 [facility] [address] [id number] [address] [place] [address], [place] [address] 11 Jun, 2013 [facility] [address] [id number] [address] [place] [address], [place] [address] 30 May, 2013 [facility] [address] [id number] [address] [place] [address], [place] [address] May, [facility] [address] [id number] [address] [place] [address], [place] [address] Apr, [facility] [address] [id number] [address] [place] [address], [place] [address] Apr, [facility] [facility] [address] [id number] [address] [place] [address], [place] [address] Apr, [facility] [address] [id number] [address] [place] [address], [place] [address] Mar, [facility] [address] [id number] [address] [place] [address], [place] [address] Mar, [facility] [address] [id number] [address] [place] [address], [place] [address] February, [facility] [address] [id number] [address] [place] [address], [place] [address] February, [facility] [address] [id number] [address] [place] [address], [place] [address] February, [facility] [address] [id number] [address] [place] [address], [place] [address] February, [facility] [address] [id number] [address] [place] [address], [place] [address] Jan, [facility] [address] [id number] [address] [place] [address], [place] [address] 17 Jan, 2013 [facility] [address] [id number] [address] [place] [address], [place] [address] 16 Jan, 2013 [facility] [address] [id number] [address] [place] [address], [place] [address] 29 Dec, 2012 [facility] [address] [id number] [address] [place] [address], [place] [address] Dec, [facility] [address] [id number] [address] [place] [address], [place] [address] Dec, [facility] [address] [id number] [address] [place] [address], [place] [address] Dec, [facility] [address] [id number] [address] [place] [address], [place] [address] Nov, [facility] [address] [id number] [address] [place] [address], [place] [address] Nov, [facility] [address] [id number] [address] [place] [address], [place] [address] Oct, [facility] [address] [id number] [address] [place] [address], [place] [address] Oct, [facility] [address] [id number] [address] [place] [address], [place] [address] Oct, [facility] [address] [id number] [address] [place] [address], [place] [address] Oct, [facility] [address] [id number] [address] [place] [address], [place] [address] Aug, [facility] [address] [id number] [address] [place] [address], [place] [address] Aug, [facility] [address] [id number] [address] [place] [address], [place] [address] Jun, [facility] [address] [id number] [address] [place] [address] May, [facility] [address] [id number] [address] [place] [address], [place] [address] May, [facility] [address] [id number] [address] [place] [address] Apr, [facility] [address] [id number] [address] [place] [address], [place] [address] Apr, [facility] [address] [id number] [address] [place] [address], [place] [address] Apr, [facility] [address] [id number] [address] [place] [address], [place] [address] Mar, [facility] [address] [id number] [address] [place] [id number] 19 Mar, 2012 [facility] [address] [id number] [address] [place] [address], [place] [address] 13 Mar, 2012 [facility] [address] [id number] [address] [place] [address], [place] [address] Mar, [facility] [address] [id number] [address] [place] [address], [place] [address] Mar, [facility] [address] [id number] [address] [place] [address], [place] [address] February, [facility] [address] [id number] [address] [place] [address], [place] [address] February, [facility] [address] [id number] [address] [place] [address], [place] [address] February, [facility] [address] [id number] [address] [place] [address], [place] [address] February, [facility] [address] [id number] [address] [place] [address], [place] [address] February, [facility] [address] [id number] [address] [place] [address], [place] [address] February, [facility] [address] [id number] [address] [place] [address], [place] [address] February, [facility] [address] [id number] [address] [place] [address], [place] [address] 25 Jan, 2012 [facility] [address] [id number] [address] [place] [address], [place] [address] 18 Jan, 2012 [facility] [address] [id number] [address] [place] [address], [place] [address] 17 Jan, 2012 [facility] [address] [id number] [address] [place] [address], [place] [address] 13 Jan, 2012 [facility] [address] [id number] [address] [place] [address], [place] [address] 10 Jan, 2012 [facility] [address] [id number] [address] [place] [address], [place] [address] 04 Jan, 2012 [facility] [address] [id number] [address] [place] [address], [place] [address] 30 Dec, 2011 [facility] [address] [id number] [address] [place] [address], [place] [address] 24 Dec, 2011 [facility] [address] [id number] [address] [place] [address], [place] [address] 20 Dec, 2011 [facility] [address] [id number] [address] [place] [address], [place] [address] 13 Dec, 2011 [facility] [address] [id number] [address] [place] [address], [place] [address] 06 Dec, 2011 [facility] [address] [id number] [address] [place] [address], [place] [address] Nov, [facility] [address] [id number] [address] [place] [address], [place] [address] Nov, [facility] [address] [id number] [address] [place] [address], [place] [address] Nov, [facility] [address] [id number] [address] [place] [address], [place] [address] 14 Nov, 2011 [facility] [address] [id number] [address] [place] [address], [place] [address] Nov, [facility] [address] [id number] [address] [place] [address], [place] [address] Nov, [facility] [address] [id number] [address] [place] [address], [place] [address] Oct, [facility] [address] [id number] [address] [place] [address], [place] [address] Oct, [facility] [address] [id number] [address] [place] [address], [place] [address] Oct, [facility] [address] [id number] [address] [place] [address], [place] [address] Oct, [facility] [address] [id number] [address] [place] [address], [place] [address] Oct, [facility] [address] [id number] [address] [place] [address], [place] [address] Sep, [facility] [address] [id number] [address] [place] [address], [place] [address] Sep, [facility] [address] [id number] [address] [place] [address], [place] [address] 20 Sep, 2011 [facility] [address] [id number] [address] [place] [address], [place] [address] 14 Sep, 2011 [facility] [address] [id number] [address] [place] [address], [place] [address] 14 Sep, 2011 [facility] [address] [id number] [address] [place] [address], [place] [address] Sep, [facility] [address] [id number] [address] [place] [address], [place] [address] Sep, [facility] [address] [id number] [address] [place] [address], [place] [address] Sep, [facility] [address] [id number] [address] [place] [address], [place] [address] 05 Sep, 2011 [facility] [address] [id number] [address] [place] [address], [place] [address] Aug, [facility] [address] [id number] [address] [place] [address], [place] [address] Aug, [facility] [address] [id number] [address] [place] [address], [place] [address] Aug, [facility] [address] [id number] [address] [place] [address], [place] [address] Aug, [facility] [address] [id number] [address] [place] [address], [place] [address] Aug, [facility] [address] [id number] [address] [place] [address], [place] [address] Aug, [facility] [address] [id number] [address] [place] [address], [place] [address] Aug, [facility] [address] [id number] [address] [place] [address], [place] [address] Aug, [facility] [address] [id number] [address] [place] [address], [place] [address] Aug, [facility] [address] [id number] [address] [place] [address], [place] [address] Aug, [facility] [address] [id number] [address] [place] [address], [place] [address] Aug, [facility] [address] [id number] [address] [place] [address], [place] [address] Aug, [facility] [address] [id number] [address] [place] [address], [place] [address] Jul, [facility] [address] [id number] [address] [place] [address], [place] [address] Jul, [facility] [address] [id number] [address] [place] [address], [place] [address] 24 Jul, 2011 [facility] [address] [id number] [address] [place] [address], [place] [address] Jul, [facility] [address] [id number] [address] [place] [address], [place] [address] 20 Jul, 2011 [facility] [address] [id number] [address] [place] [address], [place] [address] Jul, [facility] [address] [id number] [address] [place] [address], [place] [address] 18 Jul, 2011 [facility] [address] [id number] [address] [place] [address], [place] [address] 11 Jul, 2011 [facility] [address] [id number] [address] [place] [address], [place] [address] Jul, [facility] [address] [facility] [id number] [address] [place] [address] Jul, [facility] [address] [id number] [address] [place] [address] Nov, [facility] [address] [facility] [id number] [address] [place] [address] Aug, [facility] [address] [facility] [id number] [address] [place] [address] Aug, [facility] [address] [facility] [id number] [address] [place] [address] Aug, [facility] [address] [facility] [id number] [address] [place] [address] Aug, [facility] [address] [facility] [id number] [address] [place] [address] Jul, IMMUNIZATIONS No Known Immunizations SOCIAL HISTORY [...] Suicide attempt by hanging [address] [facility] 01/30/2018-02/10/20 08 Hospitalization History [facility] 05/04/18-
--- OUTSIDE RECORDS SUMMARY | 2020-04-04 02:04 | XMS REPORT ---
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 Active 56760381 Problem Generalized anxiety disorder 300.02 A ctive 92239252 Problem Obsessive-compulsive disorders 300.3 Active 134302644 Problem Catatonic schizophrenia, 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 154978427 Problem Disorganized schizophrenia, 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 38284698 Problem Paranoid schizophrenia F20.0 Active 15131684 Problem Borderline personality disorder F60.3 Active 36807792 Problem Paranoid schizophrenia, unspecified condition 295.30 Active 36490944 Problem Schizoaffective disorder, depressive type F25.1 Active 86871786 Problem Bipolar disorder, unspecified 296.80 Active 12145871 Problem Schizoaffective disorder, unspecified F25.9 Active 52032483 Problem Attention deficit hyperactivity disorder (ADHD), inattentive type, 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 72344203 Problem Posttraumatic stress disorder F43.10 Active 71241221 Problem High risk medication use Z79.899 Activ e [id number] ALLERGIES No Information ENCOUNTERS Encounter Location Date Diagnosis [facility] [address] [facility] [id number] [address] [place] [address] Apr, [facility] [address] [facility] [id number] [address] [place] [address] Apr, Paranoid schizophrenia F20.0 ; Posttraumatic stress disorder F43.10 ; Attention deficit hyperactivity disorder (ADHD), inattentive type, 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 and Borderline personality disorder F60.3 [facility] [address] [facility] [id number] [address] [place] [address] Mar, Paranoid schizophrenia F20.0 [facility] [address] [facility] [id number] [address] [place] [phone] Mar, Paranoid schizophrenia F20.0 ; Posttraumatic stress disorder F43.10 ; Attention deficit hyperactivity disorder (ADHD), inattentive type, 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 and Borderline personality disorder F60.3 [facility] [address] [facility] [id number] [address] [place] [phone] February, Paranoid schizophrenia F20.0 [facility] [address] [facility] [id number] [address] [place] [address] Jan, Paranoid schizophrenia F20.0 ; Posttraumatic stress disorder F43.10 ; Attention deficit hyperactivity disorder (ADHD), inattentive type, 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 and Borderline personality disorder F60.3 [facility] [address] [facility] [id number] [address] [place] [address] Dec, Paranoid schizophrenia F20.0 ; Posttraumatic stress disorder F43.10 ; Attention deficit hyperactivity disorder (ADHD), inattentive type, 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 and Borderline personality disorder F60.3 [facility] [address] [facility] [id number] [address] [place] [address] Dec, Paranoid schizophrenia F20.0 ; Posttraumatic stress disorder F43.10 ; Attention deficit hyperactivity disorder (ADHD), inattentive type, 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 and Borderline personality disorder F60.3 [facility] [address] [facility] [id number] [address] [place] [address] Oct, Paranoid schizophrenia F20.0 ; Posttraumatic stress disorder F43.10 ; Attention deficit hyperactivity disorder (ADHD), inattentive type, 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 and Borderline personality disorder F60.3 [facility] [address] [facility] [id number] [address] [place] [phone] Oct, Paranoid schizophrenia F20.0 ; Posttraumatic stress disorder F43.10 ; Attention deficit hyperactivity disorder (ADHD), inattentive type, 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 and Borderline personality disorder F60.3 [facility] [address] [facility] [id number] [address] [place] [address] Aug, [facility] [address] [id number] [address] [place] [address] Aug, Paranoid schizophrenia F20.0 ; Posttraumatic stress disorder F43.10 ; Attention deficit hyperactivity disorder (ADHD), inattentive type, 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 and Borderline personality disorder F60.3 [facility] [address] [id number] [address] [place] [address] Jul, Dry skin dermatitis L85.3 [facility] [address] [id number] [address] [place] [phone] Jul, [facility] [address] [id number] [address] [place] [id number] Jul, Paranoid schizophrenia F20.0 [facility] [address] [id number] [address] [place] [phone] May, Paranoid schizophrenia F20.0 ; Posttraumatic stress disorder F43.10 ; Attention deficit hyperactivity disorder (ADHD), inattentive type, 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 and Borderline personality disorder F60.3 [facility] [address] [id number] [address] [place] [phone] May, [facility] [address] [id number] [address] [place] [phone] May, Paranoid schizophrenia F20.0 [facility] [address] [id number] [address] [place] [address] May, Paranoid schizophrenia F20.0 ; Posttraumatic stress disorder F43.10 ; Attention deficit hyperactivity disorder (ADHD), inattentive type, 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 and Borderline personality disorder F60.3 [facility] [address] [id number] [address] [place] [phone] Apr, [facility] [address] [id number] [address] [place] [address] Apr, Paranoid schizophrenia F20.0 ; Posttraumatic stress disorder F43.10 ; Attention deficit hyperactivity disorder (ADHD), inattentive type, 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 and Borderline personality disorder F60.3 [facility] [address] [id number] [address] [place] [phone] Apr, [facility] [address] [id number] [address] [place] [address] Apr, Schizoaffective disorder, de pressive type F25.1 and Borderline personality disorder F60.3 [facility] [address] [id number] [address] [place] [address] Apr, Paranoid schizophrenia F20.0 ; Posttraumatic stress disorder F43.10 ; Attention deficit hyperactivity disorder (ADHD), inattentive type, 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 and Borderline personality disorder F60.3 [facility] [address] [id number] [address] [place] [address] Apr, [facility] [address] [id number] [address] [place] [address] Apr, Paranoid schizophrenia F20.0 ; Posttraumatic stress disorder F43.10 ; Attention deficit hyperactivity disorder (ADHD), inattentive type, 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 and Borderline personality disorder F60.3 [facility] [address] [id number] [address] [place] [phone] Apr, [facility] [address] [id number] [address] [place] [address] Mar, Paranoid schizophrenia F20.0 [facility] [address] [id number] [address] [place] [id number] Mar, [facility] [address] [id number] [address] [place] [phone] Mar, Paranoid schizophrenia F20.0 ; Posttraumatic stress disorder F43.10 ; Attention deficit hyperactivity disorder (ADHD), inattentive type, 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 and Borderline personality disorder F60.3 [facility] [address] [id number] [address] [place] [phone] February, Paranoid schizophrenia F20.0 [facility] [address] [id number] [address] [place] [phone] February, Paranoid schizophrenia F20.0 ; Posttraumatic stress disorder F43.10 ; Attention deficit hyperactivity disorder (ADHD), inattentive type, 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 and Borderline personality disorder F60.3 [facility] [address] [id number] [address] [place] [address] February, Paranoid schizophrenia F20.0 ; Posttraumatic stress disorder F43.10 ; Attention deficit hyperactivity disorder (ADHD), inattentive type, 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 and Borderline personality disorder F60.3 [facility] [address] [id number] [address] [place] [address] February, [facility] [address] [id number] [address] [place] [address] February, Paranoid schizophrenia F20.0 [facility] [address] [id number] [address] [place] [address] February, Paranoid schizophrenia F20.0 [facility] [address] [id number] [address] [place] [phone] February, Paranoid schizophrenia F20.0 ; Posttraumatic stress disorder F43.10 ; Attention deficit hyperactivity disorder (ADHD), inattentive type, 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 and Borderline personality disorder F60.3 [facility] [address] [id number] [address] [place] [phone] Jan, Paranoid schizophrenia F20.0 ; Posttraumatic stress disorder F43.10 ; Attention deficit hyperactivity disorder (ADHD), inattentive type, 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 and Borderline personality disorder F60.3 [facility] [address] [id number] [address] [place] [phone] Jan, Paranoid schizophrenia F20.0 [facility] [address] [id number] [address] [place] [phone] Jan, Paranoid schizophrenia F20.0 [facility] [address] [id number] [address] [place] [address] Jan, Paranoid schizophrenia F20.0 ; Posttraumatic stress disorder F43.10 ; Attention deficit hyperactivity disorder (ADHD), inattentive type, 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 and Borderline personality disorder F60.3 [facility] [address] [id number] [address] [place] [address] Dec, [facility] [address] [id number] [address] [place] [address] Nov, Paranoid schizophrenia F20.0 ; Posttraumatic stress disorder F43.10 ; Attention deficit hyperactivity disorder (ADHD), inattentive type, 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 and Borderline personality disorder F60.3 [facility] [address] [id number] [address] [place] [address] Nov, [facility] [address] [id number] [address] [place] [phone] Oct, Paranoid schizophrenia F20.0 [facility] [address] [id number] [address] [place] [address] Oct, Paranoid schizophrenia F20.0 ; Posttraumatic stress disorder F43.10 ; Attention deficit hyperactivity disorder (ADHD), inattentive type, 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 ; Borderline personality disorder F60.3 and 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.899 [facility] [address] [id number] [address] [place] [address] Oct, [facility] [address] [id number] [address] [place] [address] Oct, [facility] [address] [id number] [address] [place] [phone] Sep, [facility] [address] [id number] [address] [place] [id number] Sep, Paranoid schizophrenia F20.0 ; Posttraumatic stress disorder F43.10 ; Attention deficit hyperactivity disorder (ADHD), inattentive type, 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 and Borderline personality disorder F60.3 [facility] [address] [id number] [address] [place] [address] Sep, Paranoid schizophrenia F20.0 [facility] [address] [id number] [address] [place] [address] Aug, Paranoid schizophrenia F20.0 ; Posttraumatic stress disorder F43.10 ; Attention deficit hyperactivity disorder (ADHD), inattentive type, 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 and Borderline personality disorder F60.3 [facility] [address] [facility] [id number] [address] [place] [address] Aug, Paranoid schizophrenia F20.0 ; Posttraumatic stress disorder F43.10 ; Attention deficit hyperactivity disorder (ADHD), inattentive type, 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 and Borderline personality disorder F60.3 [facility] [address] [facility] [id number] [address] [place] [address] Aug, [facility] [address] [facility] [id number] [address] [place] [phone] Jul, Paranoid schizophrenia F20.0 ; Posttraumatic stress disorder F43.10 ; Attention deficit hyperactivity disorder (ADHD), inattentive type, 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 and Borderline personality disorder F60.3 [facility] [address] [facility] [id number] [address] [place] [address] Jul, Paranoid schizophrenia F20.0 [facility] [address] [id number] [address] [place] [phone] Jul, Paranoid schizophrenia F20.0 ; Posttraumatic stress disorder F43.10 ; Attention deficit hyperactivity disorder (ADHD), inattentive type, 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 and Borderline personality disorder F60.3 [facility] [address] [facility] [id number] [address] [place] [phone] Jun, Paranoid schizophrenia F20.0 ; Posttraumatic stress disorder F43.10 ; Attention deficit hyperactivity disorder (ADHD), inattentive type, 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 and Borderline personality disorder F60.3 [facility] [address] [facility] [id number] [address] [place] [address] May, 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 Z79.899 [facility] [address] [id number] [address] [address] May, [facility] [address] [id number] [address] [place] [address] May, [facility] [address] [id number] [address] [place] [address] May, Attention deficit hyperactiv ity disorder (ADHD), inattentive type, mild F90.0 [facility] [address] [id number] [address] [place] [address] May, [facility] [address] [id number] [address] [place] [phone] May, Attention deficit hyperactiv ity disorder (ADHD), inattentive type, mild F90.0 [facility] [address] [id number] [address] [place] [address] May, Paranoid schizophrenia F20.0 ; Posttraumatic stress disorder F43.10 ; Attention deficit hyperactivity disorder (ADHD), inattentive type, 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 and Other retirement (current) drug therapy Z79.899 [facility] [address] [id number] [address] [place] [address] Apr, Paranoid schizophrenia F20.0 [facility] [address] [id number] [address] [place] [address] Apr, Paranoid schizophrenia F20.0 ; Posttraumatic stress disorder F43.10 and Attention deficit hyperactivity disorder (ADHD), inattentive type, 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 [facility] [address] [id number] [address] [place] [phone] February, [facility] [address] [id number] [address] [place] [phone] February, Paranoid schizophrenia F20.0 ; Posttraumatic stress disorder F43.10 and Attention deficit hyperactivity disorder (ADHD), inattentive type, 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 [facility] [address] [id number] [address] [place] [phone] February, Paranoid schizophrenia F20.0 ; Posttraumatic stress disorder F43.10 and Attention deficit hyperactivity disorder (ADHD), inattentive type, 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 [facility] [address] [id number] [address] [place] [phone] Jan, Paranoid schizophrenia F20.0 ; Posttraumatic stress disorder F43.10 and Attention deficit hyperactivity disorder (ADHD), inattentive type, 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 [facility] [address] [id number] [address] [place] [id number] Dec, Dental examination Z01.20 [facility] [address] [id number] [address] [place] [address] [id number] Nov, Dental examination Z01.20 [facility] [address] [id number] [address] [place] [address] [id number] Nov, Dental examination Z01.20 [facility] [address] [id number] [address] [place] [address] [id number] Nov, Dental caries K02.9 [facility] [address] [facility] [id number] [address] [place] [address] Nov, High risk medication use Z79 .899 [facility] [address] [id number] [address] [place] [phone] Nov, Paranoid schizophrenia F20.0 ; Posttraumatic stress disorder F43.10 ; Attention deficit hyperactivity disorder (ADHD), inattentive type, 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 and Borderline personality disorder in adult F60.3 [facility] [address] [id number] [address] [place] [address] [id number] Oct, Dental caries K02.9 [facility] [address] [id number] [address] [place] [address] Sep, Paranoid schizophrenia F20.0 ; Posttraumatic stress disorder F43.10 and Attention deficit hyperactivity disorder (ADHD), inattentive type, 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 [facility] [address] [id number] [address] [place] [address] Aug, Paranoid schizophrenia F20.0 ; Posttraumatic stress disorder F43.10 and Attention deficit hyperactivity disorder (ADHD), inattentive type, 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 [facility] [address] [id number] [address] [place] [id number] Aug, Strep throat J02.0 and Cough R05 [facility] [address] [id number] [address] [place] [phone] Aug, [facility] [address] [facility] [id number] [address] [place] [phone] Jul, Paranoid schizophrenia F20.0 ; Posttraumatic stress disorder F43.10 and Attention deficit hyperactivity disorder (ADHD), inattentive type, 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 [facility] [address] [facility] [id number] [address] [place] [address] Jul, [facility] [address] [facility] [id number] [address] [place] [phone] Jun, Paranoid schizophrenia F20.0 ; Posttraumatic stress disorder F43.10 and Attention deficit hyperactivity disorder (ADHD), inattentive type, 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 [facility] [address] [id number] [address] [place] [address] [id number] Jun, Dental examination Z01.20 [facility] [address] [facility] [id number] [address] [place] [phone] Jun, [facility] [address] [facility] [id number] [address] [place] [phone] May, Paranoid schizophrenia F20.0 [facility] [address] [facility] [id number] [address] [place] [id number] May, Paranoid schizophrenia F20.0 ; Posttraumatic stress disorder F43.10 and Attention deficit hyperactivity disorder (ADHD), inattentive type, 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 [facility] [address] [facility] [id number] [address] [place] [phone] May, [facility] [address] [id number] [address] [place] [phone] May, Paranoid schizophrenia F20.0 [facility] [address] [id number] [address] [place] [phone] May, [facility] [address] [id number] [address] [place] [phone] May, Paranoid schizophrenia F20.0 [facility] [address] [id number] [address] [place] [phone] May, Schizoaffective disorder, un specified F25.9 [facility] [address] [id number] [address] [place] [address] May, Schizoaffective disorder, un specified F25.9 [facility] [address] [id number] [address] [place] [phone] May, [facility] [address] [id number] [address] [place] [address] May, Paranoid schizophrenia F20.0 [facility] [address] [id number] [address] [place] [id number] May, Paranoid schizophrenia F20.0 ; Posttraumatic stress disorder F43.10 and Attention deficit hyperactivity disorder (ADHD), inattentive type, 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 [facility] [address] [id number] [address] [place] [phone] Mar, [facility] [address] [id number] [address] [place] [phone] Mar, Paranoid schizophrenia F20.0 ; Posttraumatic stress disorder F43.10 and Attention deficit hyperactivity disorder (ADHD), inattentive type, 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 [facility] [address] [id number] [address] [place] [phone] 16 Mar, 2016 Paranoid schizophrenia F20.0 [facility] [address] [id number] [address] [place] [address] Mar, Paranoid schizophrenia F20.0 ; Attention deficit hyperactivity disorder (ADHD), inattentive type, 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 and Posttraumatic stress disorder F43.10 [facility] [address] [id number] [address] [place] [phone] Mar, [facility] [address] [id number] [address] [place] [phone] Mar, Paranoid schizophrenia F20.0 ; Posttraumatic stress disorder F43.10 and Attention deficit hyperactivity disorder (ADHD), inattentive type, 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 [facility] [address] [id number] [address] [place] [address], [place] [address] February, [facility] [address] [id number] [address] [place] [phone] February, [facility] [address] [id number] [address] [place] [phone] February, [facility] [address] [id number] [address] [place] [phone] February, [facility] [address] [id number] [address] [place] [phone] Jan, Paranoid schizophrenia F20.0 [facility] [address] [id number] [address] [place] [address] [id number] Jan, Dental examination Z01.20 [facility] [address] [id number] [address] [place] [address] [id number] Jan, Dental caries K02.9 [facility] [address] [id number] [address] [place] [address] [id number] Jan, Dental examination Z01.20 [facility] [address] [id number] [address] [place] [address] [id number] Dec, Encounter for dental examina tion Z01.20 [facility] [address] [id number] [address] [place] [phone] Dec, Paranoid schizophrenia F20.0 [facility] [address] [id number] [address] [place] [address] [id number] Dec, 2015 Dental examination Z01.20 [facility] [address] [id number] [address] [place] [id number] Dec, [facility] [address] [facility] [id number] [address] [place] [id number] Dec, Paranoid schizophrenia F20.0 ; Posttraumatic stress disorder F43.10 and Attention deficit hyperactivity disorder (ADHD), inattentive type, 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 [facility] [facility] [address] [facility] [id number] [address] [place] [address] Nov, Schizoaffective disorder, un specified F25.9 [facility] [address] [id number] [address] [place] [address] Oct, Paranoid schizophrenia F20.0 [facility] [address] [facility] [id number] [address] [place] [address] Oct, [facility] [address] [facility] [id number] [address] [place] [address] Sep, Paranoid schizophrenia F20.0 ; Posttraumatic stress disorder F43.10 and Attention deficit hyperactivity disorder (ADHD), inattentive type, 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 [facility] [address] [facility] [id number] [address] [place] [address] Sep, [facility] [address] [facility] [id number] [address] [place] [address] Sep, Paranoid schizophrenia F20.0 ; Posttraumatic stress disorder F43.10 and Attention deficit hyperactivity disorder (ADHD), inattentive type, 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 [facility] [address] [facility] [id number] [address] [place] [address] Aug, Paranoid schizophrenia F20.0 [facility] [address] [facility] [id number] [address] [place] [address] Aug, [facility] [address] [facility] [id number] [address] [place] [address] Aug, Posttraumatic stress disorde r F43.10 ; Paranoid schizophrenia F20.0 and Attention deficit hyperactivity disorder (ADHD), inattentive type, 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 [facility] [address] [facility] [id number] [address] [place] [address] Jul, Bipolar disorder, unspecifie d F31.9 [facility] [address] [facility] [id number] [address] [place] [address] Jul, [facility] [address] [facility] [id number] [address] [place] [address] Jun, [facility] [address] [id number] [address] [place] [address] Jun, Schizoaffective disorder, ch ronic 295.72 ; Posttraumatic stress disorder 309.81 and Attention deficit disorder of childhood without mention of hyperactivity 314.00 [facility] [address] [facility] [id number] [address] [place] [address] May, [facility] [address] [id number] [address] [place] [address] May, [facility] [address] [id number] [address] [place] [address] May, Schizoaffective disorder, ch ronic 295.72 ; Posttraumatic stress disorder 309.81 ; Attention deficit disorder of childhood without mention of hyperactivity 314.00 and Bipolar disorder, unspecified 296.80 [facility] [address] [id number] [address] [place] [address] Apr, Schizoaffective disorder, ch ronic 295.72 [facility] [address] [id number] [address] [place] [address] Apr, [facility] [address] [facility] [id number] [address] [place] [address] Apr, Schizoaffective disorder, ch ronic 295.72 ; Posttraumatic stress disorder 309.81 and Attention deficit disorder of childhood without mention of hyperactivity 314.00 [facility] [address] [facility] [id number] [address] [place] [address] Mar, Disorganized schizophrenia, 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 [facility] [address] [id number] [address] [place] [address] Mar, [facility] [address] [id number] [address] [place] [address] Mar, [facility] [address] [id number] [address] [place] [address] Mar, [facility] [address] [id number] [address] [place] [address] Mar, [facility] [address] [id number] [address] [place] [address] February, Schizoaffective disorder, ch ronic 295.72 [facility] [address] [facility] [id number] [address] [place] [address] February, [facility] [address] [facility] [id number] [address] [place] [address] February, Attention 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 ; Posttraumatic stress disorder 309.81 and Schizoaffective disorder, chronic 295.72 [facility] [address] [id number] [address] [place] [address] Jan, [facility] [address] [facility] [id number] [address] [place] [address] Jan, [facility] [address] [facility] [id number] [address] [place] [address] Jan, [facility] [address] [id number] [address] [place] [address] Dec, [facility] [address] [id number] [address] [place] [address] Dec, [facility] [address] [facility] [id number] [address] [place] [address] Dec, [facility] [address] [id number] [address] [place] [address] Dec, [facility] [address] [id number] [address] [place] [address], [place] [address] Dec, [facility] [address] [id number] [address] [place] [address], [place] [address] Dec, [facility] [address] [id number] [address] [place] [address], [place] [address] Dec, [facility] [address] [id number] [address] [place] [address], [place] [address] Dec, [facility] [address] [id number] [address] [place] [address], [place] [address] Nov, [facility] [address] [id number] [address] [place] [address], [place] [address] Nov, [facility] [address] [id number] [address] [place] [address], [place] [address] Nov, 2014 [facility] [address] [id number] [address] [place] [address], [place] [address] Nov, 2014 [facility] [address] [id number] [address] [place] [address], [place] [address] Nov, 2014 [facility] [address] [id number] [address] [place] [address], [place] [address] Nov, 2014 [facility] [address] [id number] [address] [place] [address], [place] [address] Nov, 2014 [facility] [address] [id number] [address] [place] [address], [place] [address] Nov, [facility] [address] [id number] [address] [place] [address], [place] [address] Nov, 2014 [facility] [address] [id number] [address] [place] [address], [place] [address] Nov, 2014 [facility] [address] [id number] [address] [place] [address], [place] [address] Oct, [facility] [address] [id number] [address] [place] [address], [place] [address] Oct, [facility] [address] [id number] [address] [place] [address], [place] [address] Oct, [facility] [address] [id number] [address] [place] [address], [place] [address] 15 Oct, 2014 [facility] [address] [id number] [address] [place] [address], [place] [address] 15 Oct, 2014 [facility] [address] [id number] [address] [place] [address], [place] [address] Oct, [facility] [address] [id number] [address] [place] [address], [place] [address] Oct, [facility] [address] [id number] [address] [place] [address], [place] [address] 17 Sep, 2014 [facility] [address] [id number] [address] [place] [address], [place] [address] 17 Sep, 2014 [facility] [address] [id number] [address] [place] [address], [place] [address] 15 Sep, 2014 [facility] [address] [id number] [address] [place] [address], [place] [address] 15 Sep, 2014 [facility] [address] [id number] [address] [place] [address], [place] [address] 20 Aug, 2014 [facility] [address] [id number] [address] [place] [address], [place] [address] 20 Aug, 2014 [facility] [address] [id number] [address] [place] [address], [place] [address] 14 Aug, 2014 [facility] [address] [id number] [address] [place] [address], [place] [address] 14 Aug, 2014 [facility] [address] [id number] [address] [place] [address], [place] [address] 14 Aug, 2014 [facility] [address] [id number] [address] [place] [address], [place] [address] 14 Aug, 2014 [facility] [address] [id number] [address] [place] [address], [place] [address] 29 Jul, 2014 [facility] [address] [id number] [address] [place] [address], [place] [address] 29 Jul, 2014 [facility] [address] [id number] [address] [place] [address], [place] [address] 24 Jul, 2014 [facility] [address] [id number] [address] [place] [address], [place] [address] 24 Jul, 2014 [facility] [address] [id number] [address] [place] [address], [place] [address] 15 Jul, 2014 [facility] [address] [id number] [address] [place] [address], [place] [address] 15 Jul, 2014 [facility] [address] [id number] [address] [place] [address], [place] [address] 27 Sep, 2013 [facility] [address] [id number] [address] [place] [address], [place] [address] 27 Sep, 2013 [facility] [address] [id number] [address] [place] [address], [place] [address] 26 Sep, 2013 [facility] [address] [id number] [address] [place] [address], [place] [address] 26 Sep, 2013 [facility] [address] [id number] [address] [place] [address], [place] [address] 26 Sep, 2013 [facility] [address] [id number] [address] [place] [address], [place] [address] 26 Sep, 2013 [facility] [address] [id number] [address] [place] [address], [place] [address] 16 Sep, 2013 [facility] [address] [id number] [address] [place] [address], [place] [address] 16 Sep, 2013 [facility] [address] [id number] [address] [place] [address], [place] [address] 16 Sep, 2013 [facility] [address] [id number] [facility] [place] [address] Jun, [facility] [address] [id number] [facility] [place] [address] Jun, [facility] [address] [id number] [address] [place] [address], [place] [address] May, [facility] [address] [id number] [address] [place] [address], [place] [address] May, [facility] [address] [id number] [address] [place] [address], [place] [address] May, [facility] [address] [id number] [address] [place] [address], [place] [address] May, [facility] [address] [id number] [address] [place] [address], [place] [address] May, [facility] [address] [id number] [address] [place] [address], [place] [address] May, [facility] [address] [id number] [address] [place] [address], [place] [address] May, [facility] [address] [id number] [address] [place] [address], [place] [address] May, [facility] [address] [id number] [address] [place] [address], [place] [address] May, [facility] [address] [id number] [address] [place] [address], [place] [address] May, [facility] [address] [id number] [address] [place] [address], [place] [address] Apr, [facility] [address] [id number] [address] [place] [address], [place] [address] Apr, [facility] [address] [id number] [address] [place] [address], [place] [address] Apr, [facility] [address] [id number] [address] [place] [address], [place] [address] Apr, [facility] [address] [id number] [facility] [place] [address] Apr, [facility] [address] [id number] [address] [place] [address], [place] [address] Apr, [facility] [address] [id number] [facility] [place] [address] Apr, [facility] [address] [id number] [address] [place] [address], [place] [address] Apr, [facility] [address] [id number] [address] [place] [address], [place] [address] Apr, [facility] [address] [id number] [address] [place] [address], [place] [address] Apr, [facility] [address] [id number] [address] [place] [address], [place] [address] Mar, [facility] [address] [id number] [address] [place] [address], [place] [address] Mar, [facility] [address] [id number] [address] [place] [address], [place] [address] Mar, [facility] [address] [id number] [address] [place] [address], [place] [address] 24 Mar, 2014 [facility] [address] [id number] [address] [place] [address], [place] [address] Mar, [facility] [address] [id number] [address] [place] [address], [place] [address] 18 Mar, 2014 [facility] [address] [id number] [address] [place] [address], [place] [address] 18 Mar, 2014 [facility] [address] [id number] [address] [place] [address], [place] [address] 16 Mar, 2014 [facility] [address] [id number] [address] [place] [address], [place] [address] 16 Mar, 2014 [facility] [address] [id number] [facility] [place] [address] 13 Mar, 2014 [facility] [address] [id number] [address] [place] [address], [place] [address] Mar, [facility] [address] [id number] [facility] [place] [address] Mar, [facility] [address] [id number] [address] [place] [address], [place] [address] Mar, [facility] [address] [id number] [address] [place] [address], [place] [address] Mar, [facility] [address] [id number] [address] [place] [address], [place] [address] Mar, [facility] [address] [id number] [address] [place] [address], [place] [address] Mar, [facility] [address] [id number] [address] [place] [address], [place] [address] Mar, [facility] [address] [id number] [address] [place] [address], [place] [address] Mar, [facility] [address] [id number] [address] [place] [address], [place] [address] Mar, [facility] [address] [id number] [address] [place] [address], [place] [address] Mar, [facility] [address] [id number] [address] [place] [address], [place] [address] February, [facility] [address] [id number] [address] [place] [address], [place] [address] February, [facility] [address] [id number] [address] [place] [address], [place] [address] February, [facility] [address] [id number] [address] [place] [address], [place] [address] February, [facility] [address] [id number] [address] [place] [address], [place] [address] February, [facility] [address] [id number] [address] [place] [address], [place] [address] February, [facility] [address] [id number] [address] [place] [address], [place] [address] February, [facility] [address] [id number] [address] [place] [address], [place] [address] February, [facility] [address] [id number] [address] [place] [address], [place] [address] February, [facility] [address] [id number] [address] [place] [address], [place] [address] February, [facility] [address] [id number] [address] [place] [address], [place] [address] February, [facility] [address] [id number] [address] [place] [address], [place] [address] February, [facility] [address] [id number] [address] [place] [address], [place] [address] February, [facility] [address] [id number] [address] [place] [address], [place] [address] February, [facility] [address] [id number] [address] [place] [address], [place] [address] February, [facility] [address] [id number] [address] [place] [address], [place] [address] February, [facility] [address] [id number] [address] [place] [address], [place] [address] February, [facility] [address] [id number] [address] [place] [address], [place] [address] February, [facility] [address] [id number] [address] [place] [address], [place] [address] February, [facility] [address] [id number] [address] [place] [address], [place] [address] February, [facility] [address] [id number] [address] [place] [address], [place] [address] February, [facility] [address] [id number] [facility] [place] [address] Jan, [facility] [address] [id number] [address] [place] [address], [place] [address] 30 Jan, 2014 [facility] [address] [id number] [address] [place] [address], [place] [address] Jan, [facility] [address] [id number] [address] [place] [address], [place] [address] Jan, [facility] [address] [id number] [address] [place] [address], [place] [address] Jan, [facility] [address] [id number] [address] [place] [address], [place] [address] Jan, [facility] [address] [id number] [address] [place] [address], [place] [address] Jan, [facility] [address] [id number] [address] [place] [address], [place] [address] Jan, [facility] [address] [id number] [address] [place] [address], [place] [address] Dec, [facility] [address] [id number] [address] [place] [address], [place] [address] Dec, [facility] [address] [id number] [address] [place] [address], [place] [address] 20 Dec, 2013 [facility] [address] [id number] [address] [place] [address], [place] [address] 19 Dec, 2013 [facility] [address] [id number] [address] [place] [address], [place] [address] 19 Dec, 2013 [facility] [address] [id number] [address] [place] [address], [place] [address] 15 Dec, 2013 [facility] [address] [id number] [address] [place] [address], [place] [address] 15 Dec, 2013 [facility] [address] [id number] [address] [place] [address], [place] [address] 11 Dec, 2013 [facility] [address] [id number] [address] [place] [address], [place] [address] Dec, [facility] [address] [id number] [address] [place] [address], [place] [id number] 10 Dec, 2013 [facility] [address] [id number] [address] [place] [address], [place] [address] 18 Nov, 2013 [facility] [address] [id number] [address] [place] [address], [place] [address] Nov, [facility] [address] [id number] [address] [place] [address], [place] [address] Nov, [facility] [address] [id number] [address] [place] [address], [place] [address] Nov, [facility] [address] [id number] [address] [place] [address], [place] [address] Nov, [facility] [address] [id number] [address] [place] [address], [place] [address] Oct, [facility] [address] [id number] [address] [place] [address], [place] [address] Oct, [facility] [address] [id number] [address] [place] [address], [place] [address] Oct, [facility] [address] [id number] [address] [place] [address], [place] [address] Sep, [facility] [address] [id number] [address] [place] [address], [place] [address] Sep, [facility] [address] [id number] [address] [place] [address], [place] [address] Sep, [facility] [address] [id number] [address] [place] [address], [place] [address] Sep, [facility] [address] [id number] [address] [place] [address], [place] [address] Aug, [facility] [address] [id number] [address] [place] [address], [place] [address] Aug, [facility] [address] [id number] [address] [place] [address], [place] [address] Jul, [facility] [address] [id number] [address] [place] [address], [place] [address] Jul, [facility] [address] [id number] [address] [place] [address], [place] [address] Jul, [facility] [address] [id number] [address] [place] [address], [place] [address] Jul, [facility] [address] [id number] [address] [place] [address], [place] [address] Jul, [facility] [address] [id number] [address] [place] [address], [place] [address] Jun, [facility] [address] [id number] [address] [place] [address], [place] [address] 25 Jun, 2013 [facility] [address] [id number] [address] [place] [address], [place] [address] 19 Jun, 2013 [facility] [address] [id number] [address] [place] [address], [place] [address] 18 Jun, 2013 [facility] [address] [id number] [address] [place] [address], [place] [address] 16 Jun, 2013 [facility] [address] [id number] [address] [place] [id number] 12 Jun, 2013 [facility] [address] [id number] [address] [place] [address], [place] [address] 11 Jun, 2013 [facility] [address] [id number] [address] [place] [address], [place] [address] 30 May, 2013 [facility] [address] [id number] [address] [place] [address], [place] [address] May, [facility] [address] [id number] [address] [place] [address], [place] [address] Apr, [facility] [address] [id number] [address] [place] [address], [place] [address] Apr, [facility] [address] [id number] [address] [place] [address], [place] [address] Apr, [facility] [address] [id number] [address] [place] [address], [place] [address] Mar, [facility] [address] [id number] [address] [place] [address], [place] [address] Mar, [facility] [facility] [address] [id number] [address] [place] [address], [place] [address] February, [facility] [address] [id number] [address] [place] [address], [place] [address] February, [facility] [address] [id number] [address] [place] [address], [place] [address] February, [facility] [address] [id number] [address] [place] [address], [place] [address] February, [facility] [address] [id number] [address] [place] [address], [place] [address] Jan, [facility] [address] [id number] [address] [place] [address], [place] [address] 17 Jan, 2013 [facility] [address] [id number] [address] [place] [address], [place] [address] 16 Jan, 2013 [facility] [address] [id number] [address] [place] [address], [place] [address] 29 Dec, 2012 [facility] [address] [id number] [address] [place] [address], [place] [address] Dec, [facility] [address] [id number] [address] [place] [address], [place] [address] Dec, [facility] [address] [id number] [address] [place] [address], [place] [address] Dec, [facility] [address] [id number] [address] [place] [address], [place] [address] Nov, [facility] [address] [id number] [address] [place] [address], [place] [address] Nov, [facility] [address] [id number] [address] [place] [address], [place] [address] Oct, [facility] [address] [id number] [address] [place] [address], [place] [address] Oct, [facility] [address] [id number] [address] [place] [address], [place] [address] Oct, [facility] [address] [id number] [address] [place] [address], [place] [address] Oct, [facility] [address] [id number] [address] [place] [address], [place] [address] Aug, [facility] [address] [id number] [address] [place] [address], [place] [address] Aug, [facility] [address] [id number] [address] [place] [address], [place] [address] Jun, [facility] [address] [id number] [address] [place] [address] May, [facility] [address] [id number] [address] [place] [address], [place] [address] May, [facility] [address] [id number] [address] [place] [address] Apr, [facility] [address] [id number] [address] [place] [address], [place] [address] Apr, [facility] [address] [id number] [address] [place] [address], [place] [address] Apr, [facility] [address] [id number] [address] [place] [address], [place] [address] Mar, [facility] [address] [id number] [address] [place] [address] 19 Mar, 2012 [facility] [address] [id number] [address] [place] [address], [place] [address] 13 Mar, 2012 [facility] [address] [id number] [address] [place] [address], [place] [address] Mar, [facility] [address] [id number] [address] [place] [address], [place] [address] Mar, [facility] [address] [id number] [address] [place] [address], [place] [address] February, [facility] [address] [id number] [address] [place] [address], [place] [address] February, [facility] [address] [id number] [address] [place] [address], [place] [address] February, [facility] [address] [id number] [address] [place] [address], [place] [address] February, [facility] [address] [id number] [address] [place] [address], [place] [address] February, [facility] [address] [id number] [address] [place] [address], [place] [address] February, [facility] [address] [id number] [address] [place] [address], [place] [address] February, [facility] [address] [id number] [address] [place] [address], [place] [address] 25 Jan, 2012 [facility] [address] [id number] [address] [place] [address], [place] [address] 18 Jan, 2012 [facility] [address] [id number] [address] [place] [address], [place] [address] 17 Jan, 2012 [facility] [address] [id number] [address] [place] [address], [place] [address] 13 Jan, 2012 [facility] [address] [id number] [address] [place] [address], [place] [address] 10 Jan, 2012 [facility] [address] [id number] [address] [place] [address], [place] [address] 04 Jan, 2012 [facility] [address] [id number] [address] [place] [address], [place] [address] 30 Dec, 2011 [facility] [address] [id number] [address] [place] [address], [place] [address] 24 Dec, 2011 [facility] [address] [id number] [address] [place] [address], [place] [address] 20 Dec, 2011 [facility] [address] [id number] [address] [place] [address], [place] [address] 13 Dec, 2011 [facility] [address] [id number] [address] [place] [address], [place] [address] 06 Dec, 2011 [facility] [address] [id number] [address] [place] [address], [place] [address] Nov, [facility] [address] [id number] [address] [place] [address], [place] [address] Nov, [facility] [address] [id number] [address] [place] [address], [place] [address] Nov, [facility] [address] [id number] [address] [place] [address], [place] [address] 14 Nov, 2011 [facility] [address] [id number] [address] [place] [address], [place] [address] Nov, [facility] [address] [id number] [address] [place] [address], [place] [address] Nov, [facility] [address] [id number] [address] [place] [address], [place] [address] Oct, [facility] [address] [id number] [address] [place] [address], [place] [address] Oct, [facility] [address] [id number] [address] [place] [address], [place] [address] Oct, [facility] [address] [id number] [address] [place] [address], [place] [address] Oct, [facility] [address] [id number] [address] [place] [address], [place] [address] Oct, [facility] [address] [id number] [address] [place] [address], [place] [address] Sep, [facility] [address] [id number] [address] [place] [address], [place] [address] Sep, [facility] [address] [id number] [address] [place] [address], [place] [address] 20 Sep, 2011 [facility] [address] [id number] [address] [place] [address], [place] [address] 14 Sep, 2011 [facility] [address] [id number] [address] [place] [address], [place] [address] 14 Sep, 2011 [facility] [address] [id number] [address] [place] [address], [place] [address] Sep, [facility] [address] [id number] [address] [place] [address], [place] [address] Sep, [facility] [address] [id number] [address] [place] [address], [place] [address] Sep, [facility] [address] [id number] [address] [place] [address], [place] [address] 05 Sep, 2011 [facility] [address] [id number] [address] [place] [address], [place] [address] Aug, [facility] [address] [id number] [address] [place] [address], [place] [address] Aug, [facility] [address] [id number] [address] [place] [address], [place] [address] Aug, [facility] [address] [id number] [address] [place] [address], [place] [address] Aug, [facility] [address] [id number] [address] [place] [address], [place] [address] Aug, [facility] [address] [id number] [address] [place] [address], [place] [address] Aug, [facility] [address] [id number] [address] [place] [address], [place] [address] Aug, [facility] [address] [id number] [address] [place] [address], [place] [address] Aug, [facility] [address] [id number] [address] [place] [address], [place] [address] Aug, [facility] [address] [id number] [address] [place] [address], [place] [address] Aug, [facility] [address] [id number] [address] [place] [address], [place] [address] Aug, [facility] [address] [id number] [address] [place] [address], [place] [address] Aug, [facility] [address] [id number] [address] [place] [address], [place] [address] Jul, [facility] [address] [id number] [address] [place] [address], [place] [address] Jul, [facility] [address] [id number] [address] [place] [address], [place] [address] 24 Jul, 2011 [facility] [address] [id number] [address] [place] [address], [place] [address] Jul, [facility] [address] [id number] [address] [place] [address], [place] [address] 20 Jul, 2011 [facility] [address] [id number] [address] [place] [address], [place] [address] Jul, [facility] [address] [id number] [address] [place] [address], [place] [address] 18 Jul, 2011 [facility] [address] [id number] [address] [place] [address], [place] [address] 11 Jul, 2011 [facility] [address] [id number] [address] [place] [address], [place] [address] Jul, [facility] [address] [facility] [id number] [address] [place] [address] Jul, [facility] [address] [id number] [address] [place] [address] Nov, [facility] [address] [facility] [id number] [address] [place] [address] Aug, [facility] [address] [facility] [id number] [address] [place] [address] Aug, [facility] [address] [facility] [id number] [address] [place] [address] Aug, [facility] [address] [facility] [id number] [address] [place] [address] Aug, [facility] [address] [facility] [id number] [address] [place] [address] Jul, IMMUNIZATIONS No Known Immunizations SOCIAL HISTORY [...]
--- OUTSIDE RECORDS SUMMARY | 2020-04-04 02:05 | XMS REPORT ---
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 Active 83303572 Problem Generalized anxiety disorder 300.02 A ctive 01459730 Problem Obsessive-compulsive disorders 300.3 Active 516764215 Problem Catatonic schizophrenia, 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 685006692 Problem Disorganized schizophrenia, 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 70308517 Problem Paranoid schizophrenia F20.0 Active 85108528 Problem Borderline personality disorder F60.3 Active 32715016 Problem Paranoid schizophrenia, unspecified condition 295.30 Active 15566713 Problem Schizoaffective disorder, depressive type F25.1 Active 43364267 Problem Bipolar disorder, unspecified 296.80 Active 00971488 Problem Schizoaffective disorder, unspecified F25.9 Active 04489437 Problem Attention deficit hyperactivity disorder (ADHD), inattentive type, 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 88007808 Problem Posttraumatic stress disorder F43.10 Active 15735969 Problem High risk medication use Z79.899 Activ e [id number] ALLERGIES No Information ENCOUNTERS Encounter Location Date Diagnosis [facility] [address] [facility] [id number] [address] [place] [phone] May, [facility] [address] [facility] [id number] [address] [place] [phone] Mar, Paranoid schizophrenia F20.0 [facility] [address] [facility] [id number] [address] [place] [phone] Mar, Paranoid schizophrenia F20.0 ; Posttraumatic stress disorder F43.10 ; Attention deficit hyperactivity disorder (ADHD), inattentive type, 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 and Borderline personality disorder F60.3 [facility] [address] [facility] [id number] [address] [place] [phone] February, Paranoid schizophrenia F20.0 [facility] [address] [facility] [id number] [address] [place] [phone] Jan, Paranoid schizophrenia F20.0 ; Posttraumatic stress disorder F43.10 ; Attention deficit hyperactivity disorder (ADHD), inattentive type, 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 and Borderline personality disorder F60.3 [facility] [address] [facility] [id number] [address] [place] [phone] Dec, Paranoid schizophrenia F20.0 ; Posttraumatic stress disorder F43.10 ; Attention deficit hyperactivity disorder (ADHD), inattentive type, 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 and Borderline personality disorder F60.3 [facility] [address] [facility] [id number] [address] [place] [phone] Dec, Paranoid schizophrenia F20.0 ; Posttraumatic stress disorder F43.10 ; Attention deficit hyperactivity disorder (ADHD), inattentive type, 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 and Borderline personality disorder F60.3 [facility] [address] [facility] [id number] [address] [place] [phone] Oct, Paranoid schizophrenia F20.0 ; Posttraumatic stress disorder F43.10 ; Attention deficit hyperactivity disorder (ADHD), inattentive type, 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 and Borderline personality disorder F60.3 [facility] [address] [facility] [id number] [address] [place] [phone] Oct, Paranoid schizophrenia F20.0 ; Posttraumatic stress disorder F43.10 ; Attention deficit hyperactivity disorder (ADHD), inattentive type, 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 and Borderline personality disorder F60.3 [facility] [address] [facility] [id number] [address] [place] [phone] Aug, [facility] [address] [facility] [id number] [address] [place] [phone] Aug, Paranoid schizophrenia F20.0 ; Posttraumatic stress disorder F43.10 ; Attention deficit hyperactivity disorder (ADHD), inattentive type, 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 and Borderline personality disorder F60.3 [facility] [address] [facility] [id number] [address] [place] [phone] Jul, Dry skin dermatitis L85.3 [facility] [address] [id number] [address] [place] [phone] Jul, [facility] [address] [facility] [id number] [address] [place] [phone] Jul, Paranoid schizophrenia F20.0 [facility] [address] [id number] [address] [place] [phone] May, Paranoid schizophrenia F20.0 ; Posttraumatic stress disorder F43.10 ; Attention deficit hyperactivity disorder (ADHD), inattentive type, 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 and Borderline personality disorder F60.3 [facility] [address] [facility] [id number] [address] [place] [phone] May, [facility] [address] [facility] [id number] [address] [place] [phone] May, Paranoid schizophrenia F20.0 [facility] [address] [facility] [id number] [address] [place] [phone] May, Paranoid schizophrenia F20.0 ; Posttraumatic stress disorder F43.10 ; Attention deficit hyperactivity disorder (ADHD), inattentive type, 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 and Borderline personality disorder F60.3 [facility] [address] [id number] [address] [place] [phone] Apr, [facility] [address] [facility] [id number] [address] [place] [phone] Apr, Paranoid schizophrenia F20.0 ; Posttraumatic stress disorder F43.10 ; Attention deficit hyperactivity disorder (ADHD), inattentive type, 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 and Borderline personality disorder F60.3 [facility] [address] [facility] [id number] [address] [place] [phone] Apr, [facility] [address] [id number] [address] [place] [phone] Apr, Schizoaffective disorder, de pressive type F25.1 and Borderline personality disorder F60.3 [facility] [address] [id number] [address] [place] [phone] Apr, Paranoid schizophrenia F20.0 ; Posttraumatic stress disorder F43.10 ; Attention deficit hyperactivity disorder (ADHD), inattentive type, 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 and Borderline personality disorder F60.3 [facility] [address] [id number] [address] [place] [phone] Apr, [facility] [address] [id number] [address] [place] [phone] Apr, Paranoid schizophrenia F20.0 ; Posttraumatic stress disorder F43.10 ; Attention deficit hyperactivity disorder (ADHD), inattentive type, 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 and Borderline personality disorder F60.3 [facility] [address] [id number] [address] [place] [phone] Apr, [facility] [address] [id number] [address] [place] [phone] Mar, Paranoid schizophrenia F20.0 [facility] [address] [id number] [address] [place] [phone] Mar, [facility] [address] [id number] [address] [place] [phone] Mar, Paranoid schizophrenia F20.0 ; Posttraumatic stress disorder F43.10 ; Attention deficit hyperactivity disorder (ADHD), inattentive type, 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 and Borderline personality disorder F60.3 [facility] [address] [id number] [address] [place] [phone] February, Paranoid schizophrenia F20.0 [facility] [address] [id number] [address] [place] [phone] February, Paranoid schizophrenia F20.0 ; Posttraumatic stress disorder F43.10 ; Attention deficit hyperactivity disorder (ADHD), inattentive type, 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 and Borderline personality disorder F60.3 [facility] [address] [facility] [id number] [address] [place] [phone] February, Paranoid schizophrenia F20.0 ; Posttraumatic stress disorder F43.10 ; Attention deficit hyperactivity disorder (ADHD), inattentive type, 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 and Borderline personality disorder F60.3 [facility] [address] [facility] [id number] [address] [place] [phone] February, [facility] [address] [facility] [id number] [address] [place] [phone] February, Paranoid schizophrenia F20.0 [facility] [address] [facility] [id number] [address] [place] [phone] February, Paranoid schizophrenia F20.0 [facility] [address] [facility] [id number] [address] [place] [phone] February, Paranoid schizophrenia F20.0 ; Posttraumatic stress disorder F43.10 ; Attention deficit hyperactivity disorder (ADHD), inattentive type, 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 and Borderline personality disorder F60.3 [facility] [address] [facility] [id number] [address] [place] [phone] Jan, Paranoid schizophrenia F20.0 ; Posttraumatic stress disorder F43.10 ; Attention deficit hyperactivity disorder (ADHD), inattentive type, 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 and Borderline personality disorder F60.3 [facility] [address] [facility] [id number] [address] [place] [phone] Jan, Paranoid schizophrenia F20.0 [facility] [address] [facility] [id number] [address] [place] [phone] Jan, Paranoid schizophrenia F20.0 [facility] [address] [facility] [id number] [address] [place] [phone] Jan, Paranoid schizophrenia F20.0 ; Posttraumatic stress disorder F43.10 ; Attention deficit hyperactivity disorder (ADHD), inattentive type, 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 and Borderline personality disorder F60.3 [facility] [address] [id number] [address] [place] [phone] Dec, [facility] [address] [id number] [address] [place] [phone] Nov, Paranoid schizophrenia F20.0 ; Posttraumatic stress disorder F43.10 ; Attention deficit hyperactivity disorder (ADHD), inattentive type, 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 and Borderline personality disorder F60.3 [facility] [address] [id number] [address] [place] [phone] Nov, [facility] [address] [id number] [address] [place] [phone] Oct, Paranoid schizophrenia F20.0 [facility] [address] [id number] [address] [place] [phone] Oct, Paranoid schizophrenia F20.0 ; Posttraumatic stress disorder F43.10 ; Attention deficit hyperactivity disorder (ADHD), inattentive type, 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 ; Borderline personality disorder F60.3 and Other mcfp (current) drug therapy Z79.899 [facility] [address] [id number] [address] [place] [phone] Oct, [facility] [address] [id number] [address] [place] [phone] Oct, [facility] [address] [id number] [address] [place] [phone] Sep, [facility] [address] [id number] [address] [place] [phone] Sep, Paranoid schizophrenia F20.0 ; Posttraumatic stress disorder F43.10 ; Attention deficit hyperactivity disorder (ADHD), inattentive type, 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 and Borderline personality disorder F60.3 [facility] [address] [id number] [address] [place] [phone] Sep, Paranoid schizophrenia F20.0 [facility] [address] [id number] [address] [place] [phone] Aug, Paranoid schizophrenia F20.0 ; Posttraumatic stress disorder F43.10 ; Attention deficit hyperactivity disorder (ADHD), inattentive type, 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 and Borderline personality disorder F60.3 [facility] [address] [facility] [id number] [address] [place] [phone] Aug, Paranoid schizophrenia F20.0 ; Posttraumatic stress disorder F43.10 ; Attention deficit hyperactivity disorder (ADHD), inattentive type, 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 and Borderline personality disorder F60.3 [facility] [address] [facility] [id number] [address] [place] [phone] Aug, [facility] [address] [facility] [id number] [address] [place] [id number] Jul, Paranoid schizophrenia F20.0 ; Posttraumatic stress disorder F43.10 ; Attention deficit hyperactivity disorder (ADHD), inattentive type, 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 and Borderline personality disorder F60.3 [facility] [address] [place] [id number] [address] [place] [phone] Jul, Paranoid schizophrenia F20.0 [facility] [address] [facility] [id number] [address] [place] [phone] Jul, Paranoid schizophrenia F20.0 ; Posttraumatic stress disorder F43.10 ; Attention deficit hyperactivity disorder (ADHD), inattentive type, 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 and Borderline personality disorder F60.3 [facility] [address] [facility] [id number] [address] [place] [phone] Jun, Paranoid schizophrenia F20.0 ; Posttraumatic stress disorder F43.10 ; Attention deficit hyperactivity disorder (ADHD), inattentive type, 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 and Borderline personality disorder F60.3 [facility] [address] [facility] [id number] [address] [place] [phone] May, Other mcfp (current) dr gabriel parra Z79.899 [facility] [address] [place] [id number] [address] [place] [phone] May, [facility] [address] [id number] [address] [address] May, [facility] [address] [id number] [address] [place] [phone] May, Attention deficit hyperactiv ity disorder (ADHD), inattentive type, mild F90.0 [facility] [address] [id number] [address] [place] [phone] May, [facility] [address] [facility] [id number] [address] [place] [phone] May, Attention deficit hyperactiv ity disorder (ADHD), inattentive type, mild F90.0 [facility] [address] [id number] [address] [place] [phone] May, Paranoid schizophrenia F20.0 ; Posttraumatic stress disorder F43.10 ; Attention deficit hyperactivity disorder (ADHD), inattentive type, 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 and Other termination clerk (current) drug therapy Z79.899 [facility] [address] [facility] [id number] [address] [place] [phone] Apr, Paranoid schizophrenia F20.0 [facility] [address] [facility] [id number] [address] [place] [phone] Apr, Paranoid schizophrenia F20.0 ; Posttraumatic stress disorder F43.10 and Attention deficit hyperactivity disorder (ADHD), inattentive type, 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 [facility] [address] [facility] [id number] [address] [place] [phone] February, [facility] [address] [facility] [id number] [address] [place] [phone] February, Paranoid schizophrenia F20.0 ; Posttraumatic stress disorder F43.10 and Attention deficit hyperactivity disorder (ADHD), inattentive type, 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 [facility] [address] [id number] [address] [place] [phone] February, Paranoid schizophrenia F20.0 ; Posttraumatic stress disorder F43.10 and Attention deficit hyperactivity disorder (ADHD), inattentive type, 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 [facility] [address] [id number] [address] [place] [phone] Jan, Paranoid schizophrenia F20.0 ; Posttraumatic stress disorder F43.10 and Attention deficit hyperactivity disorder (ADHD), inattentive type, 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 [facility] [address] [id number] [address] [place] [address] [id number] Dec, Dental examination Z01.20 [facility] [address] [id number] [address] [place] [address] [id number] Nov, Dental examination Z01.20 [facility] [address] [id number] [address] [place] [address] [id number] Nov, Dental examination Z01.20 [facility] [address] [id number] [address] [place] [address] [id number] Nov, Dental caries K02.9 [facility] [address] [id number] [address] [place] [phone] Nov, High risk medication use Z79 .899 [facility] [address] [id number] [address] [place] [phone] Nov, Paranoid schizophrenia F20.0 ; Posttraumatic stress disorder F43.10 ; Attention deficit hyperactivity disorder (ADHD), inattentive type, 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 and Borderline personality disorder in adult F60.3 [facility] [address] [id number] [address] [place] [address] [id number] Oct, Dental caries K02.9 [facility] [address] [id number] [address] [place] [phone] Sep, Paranoid schizophrenia F20.0 ; Posttraumatic stress disorder F43.10 and Attention deficit hyperactivity disorder (ADHD), inattentive type, 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 [facility] [address] [id number] [address] [place] [phone] Aug, Paranoid schizophrenia F20.0 ; Posttraumatic stress disorder F43.10 and Attention deficit hyperactivity disorder (ADHD), inattentive type, 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 [facility] [address] [id number] [address] [place] [phone] Aug, Strep throat J02.0 and Cough R05 [facility] [address] [id number] [address] [place] [phone] Aug, [facility] [address] [id number] [address] [place] [phone] Jul, Paranoid schizophrenia F20.0 ; Posttraumatic stress disorder F43.10 and Attention deficit hyperactivity disorder (ADHD), inattentive type, 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 [facility] [address] [id number] [address] [place] [phone] Jul, [facility] [address] [id number] [address] [place] [id number] Jun, Paranoid schizophrenia F20.0 ; Posttraumatic stress disorder F43.10 and Attention deficit hyperactivity disorder (ADHD), inattentive type, 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 [facility] [address] [id number] [address] [place] [address] [id number] Jun, Dental examination Z01.20 [facility] [address] [id number] [address] [place] [phone] Jun, [facility] [address] [id number] [address] [place] [phone] May, Paranoid schizophrenia F20.0 [facility] [address] [id number] [address] [place] [phone] May, Paranoid schizophrenia F20.0 ; Posttraumatic stress disorder F43.10 and Attention deficit hyperactivity disorder (ADHD), inattentive type, 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 [facility] [address] [id number] [address] [place] [phone] May, [facility] [address] [id number] [address] [place] [phone] May, Paranoid schizophrenia F20.0 [facility] [address] [id number] [address] [place] [phone] May, [facility] [address] [id number] [address] [place] [phone] May, Paranoid schizophrenia F20.0 [facility] [address] [id number] [address] [place] [phone] May, Schizoaffective disorder, un specified F25.9 [facility] [address] [id number] [address] [place] [phone] May, Schizoaffective disorder, un specified F25.9 [facility] [address] [id number] [address] [place] [phone] May, [facility] [address] [id number] [address] [place] [phone] May, Paranoid schizophrenia F20.0 [facility] [address] [id number] [address] [place] [phone] May, Paranoid schizophrenia F20.0 ; Posttraumatic stress disorder F43.10 and Attention deficit hyperactivity disorder (ADHD), inattentive type, 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 [facility] [address] [id number] [address] [place] [phone] Mar, [facility] [address] [id number] [address] [place] [phone] Mar, Paranoid schizophrenia F20.0 ; Posttraumatic stress disorder F43.10 and Attention deficit hyperactivity disorder (ADHD), inattentive type, 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 [facility] [address] [id number] [address] [place] [phone] Mar, Paranoid schizophrenia F20.0 [facility] [address] [id number] [address] [place] [phone] Mar, Paranoid schizophrenia F20.0 ; Attention deficit hyperactivity disorder (ADHD), inattentive type, 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 and Posttraumatic stress disorder F43.10 [facility] [address] [id number] [address] [place] [phone] Mar, [facility] [address] [id number] [address] [place] [phone] Mar, Paranoid schizophrenia F20.0 ; Posttraumatic stress disorder F43.10 and Attention deficit hyperactivity disorder (ADHD), inattentive type, 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 [facility] [address] [id number] [address] [place] [phone] February, [facility] [address] [id number] [address] [place] [phone] February, [facility] [address] [id number] [address] [place] [phone] February, [facility] [address] [id number] [address] [place] [phone] February, [facility] [address] [id number] [address] [place] [phone] Jan, Paranoid schizophrenia F20.0 [facility] [address] [id number] [address] [place] [address] [id number] Jan, Dental examination Z01.20 [facility] [address] [id number] [address] [place] [address] [id number] Jan, Dental caries K02.9 [facility] [address] [id number] [address] [place] [address] [phone] Jan, Dental examination Z01.20 [facility] [address] [id number] [address] [place] [address] [phone] Dec, Encounter for dental examina tion Z01.20 [facility] [address] [id number] [address] [place] [phone] Dec, Paranoid schizophrenia F20.0 [facility] [address] [id number] [address] [place] [address] [phone] Dec, Dental examination Z01.20 [facility] [address] [id number] [address] [place] [phone] Dec, [facility] [address] [id number] [address] [place] [phone] Dec, Paranoid schizophrenia F20.0 ; Posttraumatic stress disorder F43.10 and Attention deficit hyperactivity disorder (ADHD), inattentive type, 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 [facility] [address] [id number] [address] [place] [phone] Nov, Schizoaffective disorder, un specified F25.9 [facility] [address] [id number] [address] [place] [address] Oct, Paranoid schizophrenia F20.0 [facility] [address] [id number] [address] [place] [id number] Oct, [facility] [address] [id number] [address] [place] [id number] Sep, Paranoid schizophrenia F20.0 ; Posttraumatic stress disorder F43.10 and Attention deficit hyperactivity disorder (ADHD), inattentive type, 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 [facility] [address] [id number] [address] [place] [id number] Sep, [facility] [address] [id number] [address] [place] [id number] Sep, Paranoid schizophrenia F20.0 ; Posttraumatic stress disorder F43.10 and Attention deficit hyperactivity disorder (ADHD), inattentive type, 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 [facility] [address] [id number] [address] [place] [id number] Aug, Paranoid schizophrenia F20.0 [facility] [address] [id number] [address] [place] [id number] Aug, [facility] [address] [id number] [address] [place] [address] Aug, Posttraumatic stress disorde r F43.10 ; Paranoid schizophrenia F20.0 and Attention deficit hyperactivity disorder (ADHD), inattentive type, 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00 [facility] [address] [id number] [address] [place] [id number] May, [facility] [address] [facility] [id number] [address] [place] [phone] May, [facility] [address] [facility] [id number] [address] [place] [address] May, Schizoaffective disorder, ch ronic 295.72 ; Posttraumatic stress disorder 309.81 ; Attention deficit disorder of childhood without mention of hyperactivity 314.00 and Bipolar disorder, unspecified 296.80 [facility] [address] [facility] [id number] [address] [place] [id number] Apr, Schizoaffective disorder, ch ronic 295.72 [facility] [address] [facility] [id number] [address] [place] [id number] Apr, [facility] [address] [id number] [address] [place] [id number] Apr, Schizoaffective disorder, ch ronic 295.72 ; Posttraumatic stress disorder 309.81 and Attention deficit disorder of childhood without mention of hyperactivity 314.00 [facility] [address] [id number] [address] [place] [address] Mar, Disorganized schizophrenia, 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 [facility] [address] [id number] [address] [place] [id number] Mar, [facility] [address] [id number] [address] [place] [phone] Mar, [facility] [address] [id number] [address] [place] [phone] Mar, [facility] [address] [id number] [address] [place] [id number] Mar, [facility] [address] [id number] [address] [place] [phone] February, Schizoaffective disorder, ch ronic 295.72 [facility] [address] [id number] [address] [place] [id number] February, [facility] [address] [id number] [address] [place] [phone] February, Attention 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 ; Posttraumatic stress disorder 309.81 and Schizoaffective disorder, chronic 295.72 [facility] [address] [id number] [address] [place] [phone] 29 Jan, 2015 [facility] [address] [id number] [address] [place] [id number] 14 Jan, 2015 [facility] [address] [id number] [address] [place] [phone] Jan, [facility] [address] [id number] [address] [place] [phone] Dec, [facility] [address] [id number] [address] [place] [phone] Dec, [facility] [address] [id number] [address] [place] [phone] Dec, [facility] [address] [id number] [address] [place] [id number] Dec, [facility] [address] [id number] [address] [place] [phone] Dec, [facility] [address] [id number] [facility] [place] [address] Dec, [facility] [address] [id number] [address] [place] [address], [place] [address] Dec, [facility] [address] [id number] [address] [place] [address], [place] [address] Dec, [facility] [address] [id number] [address] [place] [address], [place] [address] Nov, [facility] [address] [id number] [address] [place] [address], [place] [address] Nov, [facility] [address] [id number] [address] [place] [address], [place] [address] Nov, [facility] [address] [id number] [address] [place] [address], [place] [address] Nov, [facility] [address] [id number] [address] [place] [address], [place] [address] Nov, [facility] [address] [id number] [address] [place] [address], [place] [address] Nov, [facility] [address] [id number] [address] [place] [address], [place] [address] Nov, [facility] [address] [id number] [address] [place] [address], [place] [address] Nov, [facility] [address] [id number] [address] [place] [address], [place] [address] Nov, [facility] [address] [id number] [address] [place] [address], [place] [address] Nov, [facility] [address] [id number] [address] [place] [address], [place] [address] Oct, [facility] [address] [id number] [address] [place] [address], [place] [address] Oct, [facility] [address] [id number] [address] [place] [address], [place] [address] 28 Oct, 2014 [facility] [address] [id number] [address] [place] [address], [place] [address] Oct, [facility] [address] [id number] [address] [place] [address], [place] [address] 15 Oct, 2014 [facility] [address] [id number] [address] [place] [address], [place] [address] Oct, [facility] [address] [id number] [address] [place] [address], [place] [address] Oct, [facility] [address] [id number] [address] [place] [address], [place] [address] 17 Sep, 2014 [facility] [address] [id number] [address] [place] [address], [place] [address] 17 Sep, 2014 [facility] [address] [id number] [address] [place] [address], [place] [address] Sep, [facility] [address] [id number] [address] [place] [address], [place] [address] Sep, [facility] [address] [id number] [address] [place] [address], [place] [address] Aug, [facility] [address] [id number] [address] [place] [address], [place] [address] Aug, [facility] [address] [id number] [address] [place] [address], [place] [address] 14 Aug, 2014 [facility] [address] [id number] [address] [place] [address], [place] [address] Aug, [facility] [address] [id number] [address] [place] [address], [place] [address] Aug, [facility] [address] [id number] [address] [place] [address], [place] [address] Aug, [facility] [address] [id number] [address] [place] [address], [place] [address] Jul, [facility] [address] [id number] [address] [place] [address], [place] [address] 29 Jul, 2014 [facility] [address] [id number] [address] [place] [address], [place] [address] 24 Jul, 2014 [facility] [address] [id number] [address] [place] [address], [place] [address] 24 Jul, 2014 [facility] [address] [id number] [address] [place] [address], [place] [address] 15 Jul, 2014 [facility] [address] [id number] [address] [place] [address], [place] [address] 15 Jul, 2014 [facility] [address] [id number] [address] [place] [address], [place] [address] 27 Jun, 2013 [facility] [address] [id number] [address] [place] [address], [place] [address] 27 Jun, 2013 [facility] [address] [id number] [address] [place] [address], [place] [address] 26 Jun, 2013 [facility] [address] [id number] [address] [place] [address], [place] [address] 26 Jun, 2013 [facility] [address] [id number] [address] [place] [address], [place] [address] 26 Jun, 2013 [facility] [address] [id number] [address] [place] [address], [place] [address] 26 Sep, 2013 [facility] [address] [id number] [address] [place] [address], [place] [address] 16 Sep, 2013 [facility] [address] [id number] [address] [place] [address], [place] [address] 16 Sep, 2013 [facility] [address] [id number] [address] [place] [address], [place] [address] 16 Sep, 2013 [facility] [address] [id number] [address] [place] [address], [place] [address] 16 Sep, 2013 [facility] [address] [id number] [address] [place] [address], [place] [address] Jun, [facility] [address] [id number] [address] [place] [address], [place] [address] May, [facility] [address] [id number] [address] [place] [address], [place] [address] May, [facility] [address] [id number] [address] [place] [address], [place] [address] May, [facility] [address] [id number] [address] [place] [address], [place] [address] May, [facility] [address] [id number] [address] [place] [address], [place] [address] May, [facility] [address] [id number] [address] [place] [address], [place] [address] May, [facility] [address] [id number] [address] [place] [address], [place] [address] May, [facility] [address] [id number] [address] [place] [address], [place] [address] May, [facility] [address] [id number] [address] [place] [address], [place] [address] May, [facility] [address] [id number] [address] [place] [address], [place] [address] May, [facility] [address] [id number] [address] [place] [address], [place] [address] Apr, [facility] [address] [id number] [address] [place] [address], [place] [address] Apr, [facility] [address] [id number] [address] [place] [address], [place] [address] Apr, [facility] [address] [id number] [address] [place] [address], [place] [address] Apr, [facility] [address] [id number] [address] [place] [address], [place] [address] Apr, [facility] [address] [id number] [facility] [place] [address] 24 Apr, 2014 [facility] [address] [id number] [facility] [place] [address] Apr, [facility] [address] [id number] [facility] [place] [address] Apr, [facility] [address] [id number] [address] [place] [address], [place] [address] Apr, [facility] [address] [id number] [address] [place] [address], [place] [address] Apr, [facility] [address] [id number] [address] [place] [address], [place] [address] Mar, [facility] [address] [id number] [address] [place] [address], [place] [address] Mar, [facility] [address] [id number] [address] [place] [address], [place] [address] Mar, [facility] [address] [id number] [address] [place] [address], [place] [address] 24 Mar, 2014 [facility] [address] [id number] [address] [place] [address], [place] [address] Mar, [facility] [address] [id number] [address] [place] [address], [place] [address] 18 Mar, 2014 [facility] [address] [id number] [address] [place] [address], [place] [address] 18 Mar, 2014 [facility] [address] [id number] [address] [place] [address], [place] [address] 16 Mar, 2014 [facility] [address] [id number] [address] [place] [address], [place] [address] 16 Mar, 2014 [facility] [address] [id number] [address] [place] [address], [place] [address] 13 Mar, 2014 [facility] [address] [id number] [address] [place] [address], [place] [address] Mar, [facility] [address] [id number] [facility] [place] [address] Mar, [facility] [address] [id number] [address] [place] [address], [place] [address] Mar, [facility] [address] [id number] [address] [place] [address], [place] [address] Mar, [facility] [address] [id number] [address] [place] [address], [place] [address] Mar, [facility] [address] [id number] [address] [place] [address], [place] [address] Mar, [facility] [address] [id number] [address] [place] [address], [place] [address] Mar, [facility] [address] [id number] [address] [place] [address], [place] [address] Mar, [facility] [address] [id number] [address] [place] [address], [place] [address] Mar, [facility] [address] [id number] [address] [place] [address], [place] [address] Mar, [facility] [address] [id number] [address] [place] [address], [place] [address] February, [facility] [address] [id number] [address] [place] [address], [place] [address] February, [facility] [address] [id number] [address] [place] [address], [place] [address] February, [facility] [address] [id number] [address] [place] [address], [place] [address] February, [facility] [address] [id number] [address] [place] [address], [place] [address] February, [facility] [address] [id number] [address] [place] [address], [place] [address] February, [facility] [address] [id number] [address] [place] [address], [place] [address] February, [facility] [address] [id number] [address] [place] [address], [place] [address] February, [facility] [address] [id number] [address] [place] [address], [place] [address] February, [facility] [address] [id number] [address] [place] [address], [place] [address] February, [facility] [address] [id number] [address] [place] [address], [place] [address] February, [facility] [address] [id number] [address] [place] [address], [place] [address] February, [facility] [address] [id number] [address] [place] [address], [place] [address] February, [facility] [address] [id number] [address] [place] [address], [place] [address] February, [facility] [address] [id number] [address] [place] [address], [place] [address] February, [facility] [address] [id number] [address] [place] [address], [place] [address] February, [facility] [address] [id number] [address] [place] [address], [place] [address] February, [facility] [address] [id number] [address] [place] [address], [place] [address] February, [facility] [address] [id number] [address] [place] [address], [place] [address] February, [facility] [address] [id number] [address] [place] [address], [place] [address] February, [facility] [address] [id number] [address] [place] [address], [place] [address] February, [facility] [address] [id number] [address] [place] [address], [place] [address] Jan, [facility] [address] [id number] [address] [place] [address], [place] [address] 30 Jan, 2014 [facility] [address] [id number] [address] [place] [address], [place] [address] 18 Jan, 2014 [facility] [address] [id number] [address] [place] [address], [place] [address] 18 Jan, 2014 [facility] [address] [id number] [address] [place] [address], [place] [address] Jan, [facility] [address] [id number] [address] [place] [address], [place] [address] 18 Jan, 2014 [facility] [address] [id number] [address] [place] [address], [place] [address] Jan, [facility] [address] [id number] [address] [place] [address], [place] [address] Jan, [facility] [address] [id number] [address] [place] [address], [place] [address] 21 Dec, 2013 [facility] [address] [id number] [address] [place] [address], [place] [address] 20 Dec, 2013 [facility] [address] [id number] [address] [place] [address], [place] [address] 20 Dec, 2013 [facility] [address] [id number] [address] [place] [address], [place] [address] 19 Dec, 2013 [facility] [address] [id number] [address] [place] [address], [place] [address] 19 Dec, 2013 [facility] [address] [id number] [address] [place] [address], [place] [address] 15 Dec, 2013 [facility] [address] [id number] [address] [place] [address], [place] [address] 15 Dec, 2013 [facility] [address] [id number] [address] [place] [address], [place] [address] 11 Dec, 2013 [facility] [address] [id number] [address] [place] [address], [place] [address] Dec, [facility] [address] [id number] [address] [place] [address], [place] [address] Dec, [facility] [address] [id number] [address] [place] [address], [place] [address] Nov, [facility] [address] [id number] [address] [place] [address], [place] [address] Nov, [facility] [address] [id number] [address] [place] [address], [place] [address] Nov, [facility] [address] [id number] [address] [place] [address], [place] [address] Nov, [facility] [address] [id number] [address] [place] [address], [place] [address] Nov, [facility] [address] [id number] [address] [place] [address], [place] [address] Oct, [facility] [address] [id number] [address] [place] [address], [place] [address] Oct, [facility] [address] [id number] [address] [place] [address], [place] [address] Oct, [facility] [address] [id number] [address] [place] [address], [place] [address] Sep, [facility] [address] [id number] [address] [place] [address], [place] [address] Sep, [facility] [address] [id number] [address] [place] [address], [place] [address] Sep, [facility] [address] [id number] [address] [place] [address], [place] [address] Sep, [facility] [address] [id number] [address] [place] [address], [place] [address] Aug, [facility] [address] [id number] [address] [place] [address], [place] [address] Aug, [facility] [address] [id number] [address] [place] [address], [place] [address] Jul, [facility] [address] [id number] [address] [place] [address], [place] [address] Jul, [facility] [address] [id number] [address] [place] [address], [place] [address] Jul, [facility] [address] [id number] [address] [place] [address], [place] [address] Jul, [facility] [address] [id number] [address] [place] [address], [place] [address] Jul, [facility] [address] [id number] [address] [place] [address], [place] [address] Jun, [facility] [address] [id number] [address] [place] [address], [place] [address] 25 Jun, 2013 [facility] [address] [id number] [address] [place] [address], [place] [address] 19 Jun, 2013 [facility] [address] [id number] [address] [place] [address], [place] [address] 18 Jun, 2013 [facility] [address] [id number] [address] [place] [address], [place] [address] 16 Jun, 2013 [facility] [address] [id number] [address] [place] [address], [place] [address] 12 Jun, 2013 [facility] [address] [id number] [address] [place] [address], [place] [address] 11 Jun, 2013 [facility] [address] [id number] [address] [place] [address], [place] [address] 30 May, 2013 [facility] [address] [id number] [address] [place] [address], [place] [address] May, [facility] [address] [id number] [address] [place] [address], [place] [address] Apr, [facility] [address] [id number] [address] [place] [address], [place] [address] Apr, [facility] [address] [id number] [address] [place] [address], [place] [address] Apr, [facility] [address] [id number] [address] [place] [address], [place] [address] Mar, [facility] [address] [id number] [address] [place] [address], [place] [address] Mar, [facility] [address] [id number] [address] [place] [address], [place] [address] February, [facility] [address] [id number] [address] [place] [address], [place] [address] February, [facility] [address] [id number] [address] [place] [address], [place] [id number] February, [facility] [address] [id number] [address] [place] [address], [place] [address] February, [facility] [address] [id number] [address] [place] [address], [place] [address] Jan, [facility] [address] [id number] [address] [place] [address], [place] [address] Jan, [facility] [address] [id number] [address] [place] [address], [place] [address] Jan, [facility] [address] [id number] [address] [place] [address], [place] [address] Dec, [facility] [address] [id number] [address] [place] [address], [place] [address] Dec, [facility] [address] [id number] [address] [place] [address], [place] [address] Dec, [facility] [address] [id number] [address] [place] [address], [place] [address] Dec, [facility] [address] [id number] [address] [place] [address], [place] [address] Nov, [facility] [address] [id number] [address] [place] [address], [place] [address] 13 Nov, 2012 [facility] [address] [id number] [address] [place] [address], [place] [address] Oct, [facility] [address] [id number] [address] [place] [address], [place] [address] Oct, [facility] [address] [id number] [address] [place] [address], [place] [address] Oct, [facility] [address] [id number] [address] [place] [address], [place] [address] Oct, [facility] [address] [id number] [address] [place] [address], [place] [address] Aug, [facility] [address] [id number] [address] [place] [address], [place] [address] Aug, [facility] [address] [id number] [address] [place] [address], [place] [address] Jun, [facility] [address] [id number] [address] [place] [address], [place] [address] May, [facility] [address] [id number] [address] [place] [address], [place] [address] May, [facility] [address] [id number] [address] [place] [address], [place] [address] Apr, [facility] [address] [id number] [address] [place] [address], [place] [address] Apr, [facility] [address] [id number] [address] [place] [address], [place] [address] Apr, [facility] [address] [id number] [address] [place] [address], [place] [address] Mar, [facility] [address] [id number] [address] [place] [address], [place] [address] Mar, [facility] [address] [id number] [address] [place] [address], [place] [address] Mar, [facility] [address] [id number] [address] [place] [address], [place] [address] Mar, [facility] [address] [id number] [address] [place] [address], [place] [address] Mar, [facility] [address] [id number] [address] [place] [address], [place] [address] February, [facility] [address] [id number] [address] [place] [address], [place] [address] February, [facility] [address] [id number] [address] [place] [address], [place] [address] February, [facility] [address] [id number] [address] [place] [address], [place] [address] February, [facility] [address] [id number] [address] [place] [address], [place] [address] February, [facility] [address] [id number] [address] [place] [address], [place] [address] February, [facility] [address] [id number] [address] [place] [address], [place] [address] February, [facility] [address] [id number] [address] [place] [address], [place] [address] Jan, [facility] [address] [id number] [address] [place] [address], [place] [address] 18 Jan, 2012 [facility] [address] [id number] [address] [place] [address], [place] [address] 17 Jan, 2012 [facility] [address] [id number] [address] [place] [address], [place] [address] 13 Jan, 2012 [facility] [address] [id number] [address] [place] [address], [place] [address] 10 Jan, 2012 [facility] [address] [id number] [address] [place] [address], [place] [address] 04 Jan, 2012 [facility] [address] [id number] [address] [place] [address], [place] [address] 30 Dec, 2011 [facility] [address] [id number] [address] [place] [address], [place] [address] 24 Dec, 2011 [facility] [address] [id number] [address] [place] [address], [place] [address] 20 Dec, 2011 [facility] [address] [id number] [address] [place] [address], [place] [address] 13 Dec, 2011 [facility] [address] [id number] [address] [place] [address], [place] [address] 06 Dec, 2011 [facility] [address] [id number] [address] [place] [address], [place] [address] 28 Nov, 2011 [facility] [address] [id number] [address] [place] [address], [place] [address] 27 Nov, 2011 [facility] [address] [id number] [address] [place] [address], [place] [address] 25 Nov, 2011 [facility] [address] [id number] [address] [place] [address], [place] [address] 14 Nov, 2011 [facility] [address] [id number] [address] [place] [address], [place] [address] Nov, [facility] [address] [id number] [address] [place] [address], [place] [address] Nov, [facility] [address] [id number] [address] [place] [address], [place] [address] Oct, [facility] [address] [id number] [address] [place] [address], [place] [address] Oct, [facility] [address] [id number] [address] [place] [address], [place] [address] Oct, [facility] [address] [id number] [address] [place] [address], [place] [address] Oct, [facility] [address] [id number] [address] [place] [address], [place] [address] Oct, [facility] [address] [id number] [address] [place] [address], [place] [address] Sep, [facility] [address] [id number] [address] [place] [address], [place] [address] Sep, [facility] [address] [id number] [address] [place] [address], [place] [address] Sep, [facility] [address] [id number] [address] [place] [address], [place] [address] 14 Sep, 2011 [facility] [address] [id number] [address] [place] [address], [place] [address] 14 Sep, 2011 [facility] [address] [id number] [address] [place] [address], [place] [address] Sep, [facility] [address] [id number] [address] [place] [address], [place] [address] Sep, [facility] [address] [id number] [address] [place] [address], [place] [address] Sep, [facility] [address] [id number] [address] [place] [address], [place] [address] Sep, [facility] [address] [id number] [address] [place] [address], [place] [address] Aug, [facility] [address] [id number] [address] [place] [address], [place] [address] Aug, [facility] [address] [id number] [address] [place] [address] Aug, [facility] [address] [id number] [address] [place] [address], [place] [address] Aug, [facility] [address] [id number] [address] [place] [address], [place] [address] Aug, [facility] [address] [id number] [address] [place] [address], [place] [address] Aug, [facility] [address] [id number] [address] [place] [address] Aug, [facility] [address] [id number] [address] [place] [address], [place] [address] 16 Aug, 2011 [facility] [address] [id number] [address] [place] [address] Aug, [facility] [address] [id number] [address] [place] [address], [place] [address] Aug, [facility] [address] [id number] [address] [place] [address], [place] [address] Aug, [facility] [address] [id number] [address] [place] [address], [place] [address] Aug, [facility] [address] [id number] [address] [place] [address], [place] [address] Jul, [facility] [address] [id number] [address] [place] [address] Jul, [facility] [address] [id number] [address] [place] [address], [place] [address] 24 Jul, 2011 [facility] [address] [id number] [address] [place] [address] Jul, [facility] [address] [id number] [address] [place] [address] Jul, [facility] [address] [id number] [address] [place] [address] Jul, [facility] [address] [id number] [address] [place] [id number] 18 Jul, 2011 [facility] [address] [id number] [address] [place] [address] 11 Jul, 2011 [facility] [address] [id number] [address] [place] [address] Jul, [facility] [address] [id number] [address] [place] [id number] 10 Jul, 2011 [facility] [address] [id number] [address] [place] [address] Nov, [facility] [address] [facility] [id number] [address] [place] [address] Aug, [facility] [address] [facility] [id number] [address] [place] [address] Aug, [facility] [address] [facility] [id number] [address] [place] [id number] Aug, [facility] [address] [facility] [id number] [address] [place] [phone] Aug, [facility] [address] [facility] [id number] [address] [place] [phone] Jul, IMMUNIZATIONS No Known Immunizations SOCIAL HISTORY Never Assessed REASON FOR VISIT PLAN OF CARE VITAL SIGNS Height 65.75 in 2014-12-31 Weight 192.25 lbs 2014-12-31 Temperature 97 degrees Fahrenheit 2014-12-31 Heart Rate 62 bpm 2014-12-31 Respiratory Rate 28 2014-12-31 Blood pressure systolic 118 mmHg 2014-12-31 Blood pressure diastolic 90 mmHg 2014-12-31 MEDICATIONS Unknown Medications RESULTS No Results PROCEDURES No Known procedures INSTRUCTIONS MEDICATIONS ADMINISTERED No Known Medications MEDICAL (GENERAL) HISTORY Type Description Date Medical History diabetes Medical History thyroid Surgical History appendix Surgical History gallbladder Surgical History eyes Surgical History hip Surgical History MRI on back and pelvis 06/08 Hospitalization History surgeries Hospitalization History [facility] Suicide attempt by hanging 2015 Hospitalization History [facility] 01/30/2018-02/10/20 08 Hospitalization History [facility]/SI 05/04/18-
--- OUTSIDE RECORDS SUMMARY | 2020-04-04 02:05 | XMS REPORT ---
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 Active 54303955 Problem Generalized anxiety disorder 300.02 A ctive 21232465 Problem Obsessive-compulsive disorders 300.3 Active 669579963 Problem Catatonic schizophrenia, 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 734345090 Problem Disorganized schizophrenia, 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 04353707 Problem Paranoid schizophrenia F20.0 Active 12561002 Problem Borderline personality disorder F60.3 Active 28470151 Problem Paranoid schizophrenia, unspecified condition 295.30 Active 84452135 Problem Schizoaffective disorder, depressive type F25.1 Active 78059165 Problem Bipolar disorder, unspecified 296.80 Active 72386907 Problem Schizoaffective disorder, unspecified F25.9 Active 48262532 Problem Attention deficit hyperactivity disorder (ADHD), inattentive type, 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 38390422 Problem Posttraumatic stress disorder F43.10 Active 33687333 Problem High risk medication use Z79.899 Activ e [id number] ALLERGIES No Information ENCOUNTERS Encounter Location Date Diagnosis [facility], [place] [address] [facility] [id number] [address] [place] [phone] May, [facility] [place] [address] [facility] [id number] [address] [place] [phone] Apr, [facility] [place] [address] [facility] [id number] [address] [place] [address] Apr, Paranoid schizophrenia F20.0 ; Posttraumatic stress disorder F43.10 ; Attention deficit hyperactivity disorder (ADHD), inattentive type, 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 and Borderline personality disorder F60.3 [facility], [place] [address] [id number] [address] [place] [address] Mar, Paranoid schizophrenia F20.0 [facility], [place] [address] [id number] [address] [place] [phone] Mar, Paranoid schizophrenia F20.0 ; Posttraumatic stress disorder F43.10 ; Attention deficit hyperactivity disorder (ADHD), inattentive type, 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 and Borderline personality disorder F60.3 [facility], [place] [address] [id number] [address] [place] [address] February, Paranoid schizophrenia F20.0 [facility], [place] [address] [id number] [address] [place] [address] Jan, Paranoid schizophrenia F20.0 ; Posttraumatic stress disorder F43.10 ; Attention deficit hyperactivity disorder (ADHD), inattentive type, 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 and Borderline personality disorder F60.3 [facility] [place] [address] [id number] [address] [place] [address] Dec, Paranoid schizophrenia F20.0 ; Posttraumatic stress disorder F43.10 ; Attention deficit hyperactivity disorder (ADHD), inattentive type, 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 and Borderline personality disorder F60.3 [facility] [place] [address] [id number] [address] [place] [address] Dec, Paranoid schizophrenia F20.0 ; Posttraumatic stress disorder F43.10 ; Attention deficit hyperactivity disorder (ADHD), inattentive type, 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 and Borderline personality disorder F60.3 [facility] [place] [address] [id number] [address] [place] [address] Oct, Paranoid schizophrenia F20.0 ; Posttraumatic stress disorder F43.10 ; Attention deficit hyperactivity disorder (ADHD), inattentive type, 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 and Borderline personality disorder F60.3 [facility] [place] [address] [id number] [address] [place] [address] Oct, Paranoid schizophrenia F20.0 ; Posttraumatic stress disorder F43.10 ; Attention deficit hyperactivity disorder (ADHD), inattentive type, 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 and Borderline personality disorder F60.3 [facility] [place] [address] [facility] [id number] [address] [place] [phone] Aug, [facility] [place] [address] [facility] [id number] [address] [place] [address] Aug, Paranoid schizophrenia F20.0 ; Posttraumatic stress disorder F43.10 ; Attention deficit hyperactivity disorder (ADHD), inattentive type, 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 and Borderline personality disorder F60.3 [facility] [address] [id number] [address] [place] [address] Jul, Dry skin dermatitis L85.3 [facility], [place] [address] [id number] [address] [place] [address] Jul, [facility] [place] [address] [facility] [id number] [address] [place] [address] Jul, Paranoid schizophrenia F20.0 [facility] [place] [address] [facility] [id number] [address] [place] [address] May, Paranoid schizophrenia F20.0 ; Posttraumatic stress disorder F43.10 ; Attention deficit hyperactivity disorder (ADHD), inattentive type, 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 and Borderline personality disorder F60.3 [facility] [place] [address] [id number] [address] [place] [address] May, [facility] [place] [address] [facility] [id number] [address] [place] [address] May, Paranoid schizophrenia F20.0 [facility] [place] [address] [facility] [id number] [address] [place] [address] May, Paranoid schizophrenia F20.0 ; Posttraumatic stress disorder F43.10 ; Attention deficit hyperactivity disorder (ADHD), inattentive type, 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 and Borderline personality disorder F60.3 [facility] [place] [address] [facility] [id number] [address] [place] [address] Apr, [facility] [place] [address] [id number] [address] [place] [address] Apr, Paranoid schizophrenia F20.0 ; Posttraumatic stress disorder F43.10 ; Attention deficit hyperactivity disorder (ADHD), inattentive type, 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 and Borderline personality disorder F60.3 [facility] [place] [address] [id number] [address] [place] [address] Apr, [facility] [place] [address] [id number] [address] [place] [address] Apr, Schizoaffective disorder, de pressive type F25.1 and Borderline personality disorder F60.3 [facility] [place] [address] [id number] [address] [place] [address] Apr, Paranoid schizophrenia F20.0 ; Posttraumatic stress disorder F43.10 ; Attention deficit hyperactivity disorder (ADHD), inattentive type, 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 and Borderline personality disorder F60.3 [facility] [place] [address] [id number] [address] [place] [address] Apr, [facility] [place] [address] [id number] [address] [place] [address] Apr, Paranoid schizophrenia F20.0 ; Posttraumatic stress disorder F43.10 ; Attention deficit hyperactivity disorder (ADHD), inattentive type, 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 and Borderline personality disorder F60.3 [facility] [place] [address] [id number] [address] [place] [address] Apr, [facility] [place] [address] [id number] [address] [place] [address] Mar, Paranoid schizophrenia F20.0 [facility] [place] [address] [id number] [address] [place] [address] Mar, [facility] [place] [address] [id number] [address] [place] [address] Mar, Paranoid schizophrenia F20.0 ; Posttraumatic stress disorder F43.10 ; Attention deficit hyperactivity disorder (ADHD), inattentive type, 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 and Borderline personality disorder F60.3 [facility], [place] [address] [id number] [facility] [place] [address] February, Paranoid schizophrenia F20.0 [facility], [place] [address] [id number] [facility] [place] [address] February, Paranoid schizophrenia F20.0 ; Posttraumatic stress disorder F43.10 ; Attention deficit hyperactivity disorder (ADHD), inattentive type, 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 and Borderline personality disorder F60.3 [facility], [place] [address] [id number] [address] [place] [address], [place] [address] February, Paranoid schizophrenia F20.0 ; Posttraumatic stress disorder F43.10 ; Attention deficit hyperactivity disorder (ADHD), inattentive type, 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 and Borderline personality disorder F60.3 [facility], [place] [address] [id number] [address] [place] [phone] February, [facility], [place] [address] [id number] [address] [place] [address] February, Paranoid schizophrenia F20.0 [facility], [place] [address] [id number] [address] [place] [address], [place] [address] February, Paranoid schizophrenia F20.0 [facility], [place] [address] [id number] [address] [place] [address], [place] [address] February, Paranoid schizophrenia F20.0 ; Posttraumatic stress disorder F43.10 ; Attention deficit hyperactivity disorder (ADHD), inattentive type, 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 and Borderline personality disorder F60.3 [facility], [place] [address] [id number] [address] [place] [address], [place] [address] Jan, Paranoid schizophrenia F20.0 ; Posttraumatic stress disorder F43.10 ; Attention deficit hyperactivity disorder (ADHD), inattentive type, 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 and Borderline personality disorder F60.3 [facility], [place] [address] [id number] [address] [place] [address], [place] [address] Jan, Paranoid schizophrenia F20.0 [facility], [place] [address] [id number] [address] [place] [address] Jan, Paranoid schizophrenia F20.0 [facility], [place] [address] [id number] [address] [place] [address] Jan, Paranoid schizophrenia F20.0 ; Posttraumatic stress disorder F43.10 ; Attention deficit hyperactivity disorder (ADHD), inattentive type, 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 and Borderline personality disorder F60.3 [facility], [place] [address] [id number] [address] [place] [address] Dec, [facility] [place] [address] [id number] [address] [place] [address] Nov, Paranoid schizophrenia F20.0 ; Posttraumatic stress disorder F43.10 ; Attention deficit hyperactivity disorder (ADHD), inattentive type, 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 and Borderline personality disorder F60.3 [facility], [place] [address] [id number] [address] [place] [address] Nov, [facility], [place] [address] [id number] [address] [place] [address] Oct, Paranoid schizophrenia F20.0 [facility], [place] [address] [id number] [address] [place] [address] Oct, Paranoid schizophrenia F20.0 ; Posttraumatic stress disorder F43.10 ; Attention deficit hyperactivity disorder (ADHD), inattentive type, 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 ; Borderline personality disorder F60.3 and 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 [facility], [place] [address] [id number] [address] [place] [address] Oct, [facility] [place] [address] [id number] [address] [place] [address] Oct, [facility] [place] [address] [facility] [id number] [address] [place] [address] Sep, [facility] [place] [address] [facility] [id number] [address] [place] [address] Sep, Paranoid schizophrenia F20.0 ; Posttraumatic stress disorder F43.10 ; Attention deficit hyperactivity disorder (ADHD), inattentive type, 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 and Borderline personality disorder F60.3 [facility], [place] [address] [id number] [address] [place] [address] Sep, Paranoid schizophrenia F20.0 [facility], [place] [address] [id number] [address] [place] [address] Aug, Paranoid schizophrenia F20.0 ; Posttraumatic stress disorder F43.10 ; Attention deficit hyperactivity disorder (ADHD), inattentive type, 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 and Borderline personality disorder F60.3 [facility], [place] [address] [id number] [address] [place] [address] Aug, Paranoid schizophrenia F20.0 ; Posttraumatic stress disorder F43.10 ; Attention deficit hyperactivity disorder (ADHD), inattentive type, 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 and Borderline personality disorder F60.3 [facility], [place] [address] [id number] [address] [place] [address] Aug, [facility] [place] [address] [id number] [address] [place] [address] Jul, Paranoid schizophrenia F20.0 ; Posttraumatic stress disorder F43.10 ; Attention deficit hyperactivity disorder (ADHD), inattentive type, 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 and Borderline personality disorder F60.3 [facility], [place] [address] [facility] [id number] [address] [place] [address] Jul, Paranoid schizophrenia F20.0 [facility], [place] [address] [id number] [address] [place] [address] Jul, Paranoid schizophrenia F20.0 ; Posttraumatic stress disorder F43.10 ; Attention deficit hyperactivity disorder (ADHD), inattentive type, 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 and Borderline personality disorder F60.3 [facility], [place] [address] [id number] [address] [place] [address] Jun, Paranoid schizophrenia F20.0 ; Posttraumatic stress disorder F43.10 ; Attention deficit hyperactivity disorder (ADHD), inattentive type, 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 and Borderline personality disorder F60.3 [facility], [place] [address] [id number] [address] [place] [address] May, 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 Z79.899 [facility], [place] [address] [id number] [address] [place] [address] May, [facility] [place] [address] [id number] [address] [place] [address] May, [facility], [place] [address] [id number] [address] [place] [address] May, Attention deficit hyperactiv ity disorder (ADHD), inattentive type, mild F90.0 [facility] [place] [address] [id number] [address] [place] [address] May, [facility] [place] [address] [id number] [address] [place] [address] May, Attention deficit hyperactiv ity disorder (ADHD), inattentive type, mild F90.0 [facility], [place] [address] [id number] [address] [place] [address] May, Paranoid schizophrenia F20.0 ; Posttraumatic stress disorder F43.10 ; Attention deficit hyperactivity disorder (ADHD), inattentive type, 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 and 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 [facility] [place] [address] [id number] [address] [place] [address] Apr, Paranoid schizophrenia F20.0 [facility], [place] [address] [id number] [address] [place] [address] Apr, Paranoid schizophrenia F20.0 ; Posttraumatic stress disorder F43.10 and Attention deficit hyperactivity disorder (ADHD), inattentive type, 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 [facility] [place] [address] [id number] [address] [place] [address] February, [facility] [place] [address] [id number] [address] [place] [address] February, Paranoid schizophrenia F20.0 ; Posttraumatic stress disorder F43.10 and Attention deficit hyperactivity disorder (ADHD), inattentive type, 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 [facility] [place] [address] [id number] [address] [place] [address] February, Paranoid schizophrenia F20.0 ; Posttraumatic stress disorder F43.10 and Attention deficit hyperactivity disorder (ADHD), inattentive type, 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 [facility] [place] [address] [id number] [address] [place] [address] Jan, Paranoid schizophrenia F20.0 ; Posttraumatic stress disorder F43.10 and Attention deficit hyperactivity disorder (ADHD), inattentive type, 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 [facility] [address] [id number] [address] [place] [id number] Dec, Dental examination Z01.20 [facility] [address] [id number] [address] [place] [address] [id number] Nov, Dental examination Z01.20 [facility] [address] [id number] [address] [place] [address] [id number] Nov, Dental examination Z01.20 [facility] [address] [id number] [address] [place] [address] [id number] Nov, Dental caries K02.9 [facility] [place] [address] [id number] [address] [place] [address] Nov, High risk medication use Z79 .899 [facility] [place] [address] [id number] [address] [place] [address] Nov, Paranoid schizophrenia F20.0 ; Posttraumatic stress disorder F43.10 ; Attention deficit hyperactivity disorder (ADHD), inattentive type, 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 and Borderline personality disorder in adult F60.3 [facility] [address] [id number] [address] [place] [address] [id number] Oct, Dental caries K02.9 [facility] [place] [address] [id number] [address] [place] [address] Sep, Paranoid schizophrenia F20.0 ; Posttraumatic stress disorder F43.10 and Attention deficit hyperactivity disorder (ADHD), inattentive type, 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 [facility] [place] [address] [facility] [id number] [address] [place] [phone] 16 Aug, 2016 Paranoid schizophrenia F20.0 ; Posttraumatic stress disorder F43.10 and Attention deficit hyperactivity disorder (ADHD), inattentive type, 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 [facility] [address] [id number] [address] [place] [address] Aug, Strep throat J02.0 and Cough R05 [facility] [place] [address] [id number] [address] [place] [address] Aug, [facility] [place] [address] [facility] [id number] [address] [place] [address] Jul, Paranoid schizophrenia F20.0 ; Posttraumatic stress disorder F43.10 and Attention deficit hyperactivity disorder (ADHD), inattentive type, 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 [facility] [place] [address] [facility] [id number] [address] [place] [address] Jul, [facility] [place] [address] [facility] [id number] [address] [place] [address] Jun, Paranoid schizophrenia F20.0 ; Posttraumatic stress disorder F43.10 and Attention deficit hyperactivity disorder (ADHD), inattentive type, 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 [facility] [address] [id number] [address] [place] [id number] Jun, Dental examination Z01.20 [facility] [place] [address] [id number] [address] [place] [address] Jun, [facility] [place] [address] [id number] [address] [place] [address] May, Paranoid schizophrenia F20.0 [facility] [place] [address] [facility] [id number] [address] [place] [address] May, Paranoid schizophrenia F20.0 ; Posttraumatic stress disorder F43.10 and Attention deficit hyperactivity disorder (ADHD), inattentive type, 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 [facility] [place] [address] [id number] [address] [place] [address] May, [facility] [address] [id number] [address] [place] [address] May, Paranoid schizophrenia F20.0 [facility] [place] [address] [id number] [address] [place] [address] May, [facility] [place] [address] [id number] [address] [place] [address] May, Paranoid schizophrenia F20.0 [facility] [place] [address] [id number] [address] [place] [address] May, Schizoaffective disorder, un specified F25.9 [facility] [place] [address] [id number] [address] [place] [address] May, Schizoaffective disorder, un specified F25.9 [facility] [place] [address] [id number] [address] [place] [address] May, [facility] [place] [address] [id number] [address] [place] [address] May, Paranoid schizophrenia F20.0 [facility] [place] [address] [id number] [address] [place] [address] May, Paranoid schizophrenia F20.0 ; Posttraumatic stress disorder F43.10 and Attention deficit hyperactivity disorder (ADHD), inattentive type, 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 [facility] [place] [address] [id number] [address] [place] [address] Mar, [facility] [place] [address] [id number] [address] [place] [address] Mar, Paranoid schizophrenia F20.0 ; Posttraumatic stress disorder F43.10 and Attention deficit hyperactivity disorder (ADHD), inattentive type, 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 [facility] [place] [address] [id number] [address] [place] [address] Mar, Paranoid schizophrenia F20.0 [facility] [place] [address] [id number] [address] [place] [address] Mar, Paranoid schizophrenia F20.0 ; Attention deficit hyperactivity disorder (ADHD), inattentive type, 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 and Posttraumatic stress disorder F43.10 [facility] [place] [address] [id number] [address] [place] [address] Mar, [facility] [place] [address] [id number] [address] [place] [address] Mar, Paranoid schizophrenia F20.0 ; Posttraumatic stress disorder F43.10 and Attention deficit hyperactivity disorder (ADHD), inattentive type, 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 [facility] [place] [address] [id number] [address] [place] [address] February, [facility] [place] [address] [id number] [address] [place] [address] February, [facility] [place] [address] [id number] [address] [place] [phone] February, [facility], [place] [address] [id number] [address] [place] [phone] February, [facility], [place] [address] [id number] [address] [place] [id number] Jan, Paranoid schizophrenia F20.0 [facility] [address] [id number] [address] [place] [id number] Jan, Dental examination Z01.20 [facility] [address] [id number] [address] [place] [id number] Jan, Dental caries K02.9 [facility] [address] [id number] [address] [place] [address] [id number] Jan, Dental examination Z01.20 [facility] [address] [id number] [address] [place] [address] [id number] Dec, Encounter for dental examina tion Z01.20 [facility] [place] [address] [id number] [address] [place] [address] 30 Dec, 2015 Paranoid schizophrenia F20.0 [facility] [address] [id number] [address] [place] [address] [id number] 15 Dec, 2015 Dental examination Z01.20 [facility] [place] [address] [id number] [address] [place] [address] 07 Dec, 2015 [facility] [place] [address] [id number] [address] [place] [id number] 07 Dec, 2015 Paranoid schizophrenia F20.0 ; Posttraumatic stress disorder F43.10 and Attention deficit hyperactivity disorder (ADHD), inattentive type, 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 [facility] [place] [address] [id number] [address] [place] [address] Nov, Schizoaffective disorder, un specified F25.9 [facility] [place] [address] [id number] [address] [place] [address] Oct, Paranoid schizophrenia F20.0 [facility] [place] [address] [id number] [address] [place] [address] Oct, [facility] [place] [address] [id number] [address] [place] [address] Sep, Paranoid schizophrenia F20.0 ; Posttraumatic stress disorder F43.10 and Attention deficit hyperactivity disorder (ADHD), inattentive type, 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 [facility] [place] [address] [id number] [address] [place] [address] Sep, [facility] [place] [address] [id number] [address] [place] [address] Sep, Paranoid schizophrenia F20.0 ; Posttraumatic stress disorder F43.10 and Attention deficit hyperactivity disorder (ADHD), inattentive type, 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 [facility] [place] [address] [id number] [address] [place] [address] Aug, Paranoid schizophrenia F20.0 [facility] [place] [address] [id number] [address] [place] [address] Aug, [facility] [place] [address] [facility] [id number] [address] [place] [address] Aug, Posttraumatic stress disorde r F43.10 ; Paranoid schizophrenia F20.0 and Attention deficit hyperactivity disorder (ADHD), inattentive type, 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 [facility] [place] [address] [facility] [id number] [address] [place] [address] Jul, Bipolar disorder, unspecifie d F31.9 [facility] [place] [address] [facility] [id number] [address] [place] [address] Jul, [facility] [place] [address] [facility] [id number] [address] [place] [address] Jun, [facility] [place] [address] [facility] [id number] [address] [place] [address] Jun, Schizoaffective disorder, ch ronic 295.72 ; Posttraumatic stress disorder 309.81 and Attention deficit disorder of childhood without mention of hyperactivity 314.00 [facility] [place] [address] [facility] [id number] [address] [place] [address] May, [facility] [place] [address] [facility] [id number] [address] [place] [address] May, [facility] [place] [address] [id number] [address] [place] [address] May, Schizoaffective disorder, ch ronic 295.72 ; Posttraumatic stress disorder 309.81 ; Attention deficit disorder of childhood without mention of hyperactivity 314.00 and Bipolar disorder, unspecified 296.80 [facility] [place] [address] [id number] [address] [place] [address] Apr, Schizoaffective disorder, ch ronic 295.72 [facility] [place] [address] [facility] [id number] [address] [place] [address] Apr, [facility] [place] [address] [facility] [id number] [address] [place] [address] Apr, Schizoaffective disorder, ch ronic 295.72 ; Posttraumatic stress disorder 309.81 and Attention deficit disorder of childhood without mention of hyperactivity 314.00 [facility] [place] [address] [id number] [address] [place] [address] Mar, Disorganized schizophrenia, 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 [facility] [place] [address] [id number] [address] [place] [address] Mar, [facility] [place] [address] [id number] [address] [place] [address] Mar, [facility] [place] [address] [id number] [address] [place] [address] Mar, [facility] [place] [address] [id number] [address] [place] [address] Mar, [facility] [place] [address] [id number] [address] [place] [address] February, Schizoaffective disorder, ch ronic 295.72 [facility] [place] [address] [id number] [address] [place] [address] February, [facility] [place] [address] [id number] [address] [place] [address] February, Attention 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 ; Posttraumatic stress disorder 309.81 and Schizoaffective disorder, chronic 295.72 [facility] [place] [address] [id number] [address] [place] [address] Jan, [facility] [place] [address] [id number] [address] [place] [address] Jan, [facility] [place] [address] [id number] [address] [place] [address] Jan, [facility] [place] [address] [id number] [address] [place] [address] Dec, [facility] [place] [address] [id number] [address] [place] [address] Dec, [facility] [address] [id number] [address] [place] [address], [place] [address] Dec, [facility] [address] [id number] [address] [place] [address], [place] [address] Dec, [facility] [address] [id number] [address] [place] [address], [place] [address] Dec, [facility] [address] [id number] [address] [place] [address], [place] [address] Dec, [facility] [address] [id number] [address] [place] [address], [place] [address] Dec, [facility] [address] [id number] [address] [place] [address], [place] [address] Dec, [facility] [address] [id number] [address] [place] [address], [place] [address] Nov, [facility] [address] [id number] [address] [place] [address], [place] [address] Nov, [facility] [address] [id number] [address] [place] [address], [place] [address] Nov, [facility] [address] [id number] [address] [place] [address], [place] [address] Nov, [facility] [address] [id number] [address] [place] [address], [place] [address] Nov, 2014 [facility] [address] [id number] [address] [place] [address] Nov, 2014 [facility] [address] [id number] [address] [place] [address], [place] [address] Nov, 2014 [facility] [address] [id number] [address] [place] [address] Nov, 2014 [facility] [address] [id number] [address] [place] [address] Nov, [facility] [address] [id number] [address] [place] [address], [place] [address] Nov, [facility] [address] [id number] [address] [place] [address], [place] [address] Oct, [facility] [address] [id number] [address] [place] [address], [place] [address] Oct, [facility] [address] [id number] [address] [place] [address], [place] [address] Oct, [facility] [address] [id number] [address] [place] [address], [place] [address] Oct, [facility] [address] [id number] [address] [place] [address], [place] [address] Oct, [facility] [address] [id number] [address] [place] [address], [place] [address] Oct, [facility] [address] [id number] [address] [place] [address], [place] [address] Oct, [facility] [address] [id number] [address] [place] [address], [place] [address] Sep, [facility] [address] [id number] [address] [place] [address], [place] [address] 17 Sep, 2014 [facility] [address] [id number] [address] [place] [address], [place] [address] 15 Sep, 2014 [facility] [address] [id number] [address] [place] [address], [place] [address] 15 Sep, 2014 [facility] [address] [id number] [address] [place] [address], [place] [address] Aug, [facility] [address] [id number] [address] [place] [address], [place] [address] 20 Aug, 2014 [facility] [address] [id number] [address] [place] [address], [place] [address] 14 Aug, 2014 [facility] [address] [id number] [address] [place] [address], [place] [address] Aug, [facility] [address] [id number] [address] [place] [address], [place] [address] Aug, [facility] [address] [id number] [address] [place] [address], [place] [address] Aug, [facility] [address] [id number] [address] [place] [address], [place] [address] 29 Jul, 2014 [facility] [address] [id number] [address] [place] [address], [place] [address] 29 Jul, 2014 [facility] [address] [id number] [address] [place] [address], [place] [address] Jul, [facility] [address] [id number] [address] [place] [address], [place] [address] 24 Jul, 2014 [facility] [address] [id number] [address] [place] [address], [place] [address] Jul, [facility] [address] [id number] [address] [place] [address], [place] [address] 15 Jul, 2014 [facility] [address] [id number] [address] [place] [address], [place] [address] 27 Jun, 2014 [facility] [address] [id number] [address] [place] [address], [place] [address] 27 Sep, 2013 [facility] [address] [id number] [address] [place] [address], [place] [address] 26 Jun, 2013 [facility] [address] [id number] [address] [place] [address], [place] [address] 26 Sep, 2013 [facility] [address] [id number] [address] [place] [address], [place] [address] 26 Jun, 2013 [facility] [address] [id number] [address] [place] [address], [place] [address] 26 Sep, 2013 [facility] [address] [id number] [address] [place] [address], [place] [address] 16 Sep, 2013 [facility] [address] [id number] [facility] [place] [address] 16 Jun, 2013 [facility] [address] [id number] [facility] [place] [address] Jun, [facility] [address] [id number] [facility] [place] [address] Jun, [facility] [address] [id number] [facility] [place] [address] Jun, [facility] [address] [id number] [facility] [place] [address] May, [facility] [address] [id number] [address] [place] [address], [place] [address] May, [facility] [address] [id number] [address] [place] [address], [place] [address] May, [facility] [address] [id number] [address] [place] [address], [place] [address] May, [facility] [address] [id number] [address] [place] [address], [place] [address] May, [facility] [address] [id number] [address] [place] [address], [place] [address] May, [facility] [address] [id number] [address] [place] [address], [place] [address] May, [facility] [address] [id number] [address] [place] [address], [place] [address] May, [facility] [address] [id number] [address] [place] [address], [place] [address] May, [facility] [address] [id number] [address] [place] [address], [place] [address] May, [facility] [address] [id number] [address] [place] [address], [place] [address] Apr, [facility] [address] [id number] [address] [place] [address], [place] [address] Apr, [facility] [address] [id number] [facility] [place] [address] Apr, [facility] [address] [id number] [facility] [place] [address] Apr, [facility] [address] [id number] [facility] [place] [address] Apr, [facility] [address] [id number] [address] [place] [address], [place] [address] Apr, [facility] [address] [id number] [address] [place] [address], [place] [address] Apr, [facility] [address] [id number] [address] [place] [address], [place] [address] Apr, [facility] [address] [id number] [address] [place] [address], [place] [address] Apr, [facility] [address] [id number] [address] [place] [address], [place] [address] Apr, [facility] [address] [id number] [address] [place] [address], [place] [address] Mar, [facility] [address] [id number] [address] [place] [address], [place] [address] Mar, [facility] [address] [id number] [address] [place] [address], [place] [address] Mar, [facility] [address] [id number] [address] [place] [address], [place] [address] Mar, [facility] [address] [id number] [address] [place] [address], [place] [address] Mar, [facility] [address] [id number] [address] [place] [address], [place] [address] Mar, [facility] [address] [id number] [address] [place] [address], [place] [address] Mar, [facility] [address] [id number] [facility] [place] [address] 16 Mar, 2014 [facility] [address] [id number] [address] [place] [address], [place] [address] 16 Mar, 2014 [facility] [address] [id number] [address] [place] [address], [place] [address] Mar, [facility] [address] [id number] [address] [place] [address], [place] [address] Mar, [facility] [address] [id number] [address] [place] [address], [place] [address] Mar, [facility] [address] [id number] [address] [place] [address], [place] [address] Mar, [facility] [address] [id number] [address] [place] [address], [place] [address] Mar, [facility] [address] [id number] [address] [place] [address], [place] [address] Mar, [facility] [address] [id number] [address] [place] [address], [place] [address] Mar, [facility] [address] [id number] [address] [place] [address], [place] [address] Mar, [facility] [address] [id number] [address] [place] [address], [place] [address] Mar, [facility] [address] [id number] [address] [place] [address], [place] [address] Mar, [facility] [address] [id number] [address] [place] [address], [place] [address] Mar, [facility] [address] [id number] [address] [place] [address], [place] [address] February, [facility] [address] [id number] [address] [place] [address], [place] [address] February, [facility] [address] [id number] [address] [place] [address], [place] [address] February, [facility] [address] [id number] [facility] [place] [address] February, [facility] [address] [id number] [address] [place] [address], [place] [address] February, [facility] [address] [id number] [facility] [place] [address] February, [facility] [address] [id number] [address] [place] [address], [place] [address] February, [facility] [address] [id number] [address] [place] [address], [place] [address] February, [facility] [address] [id number] [address] [place] [address], [place] [address] February, [facility] [address] [id number] [address] [place] [address], [place] [address] February, [facility] [address] [id number] [address] [place] [address], [place] [address] February, [facility] [address] [id number] [address] [place] [address], [place] [address] February, [facility] [address] [id number] [address] [place] [address], [place] [address] February, [facility] [address] [id number] [address] [place] [address], [place] [address] February, [facility] [address] [id number] [address] [place] [address], [place] [address] February, [facility] [address] [id number] [address] [place] [address], [place] [address] February, [facility] [address] [id number] [address] [place] [address], [place] [address] February, [facility] [address] [id number] [address] [place] [address], [place] [address] February, [facility] [address] [id number] [address] [place] [address], [place] [address] February, [facility] [address] [id number] [address] [place] [address], [place] [address] February, [facility] [address] [id number] [address] [place] [address], [place] [address] February, [facility] [address] [id number] [address] [place] [address], [place] [address] Jan, [facility] [address] [id number] [address] [place] [address], [place] [address] Jan, [facility] [address] [id number] [address] [place] [address], [place] [address] Jan, [facility] [address] [id number] [address] [place] [address], [place] [address] Jan, [facility] [address] [id number] [address] [place] [address], [place] [address] Jan, [facility] [address] [id number] [address] [place] [address], [place] [address] Jan, [facility] [address] [id number] [address] [place] [address], [place] [address] Jan, [facility] [address] [id number] [address] [place] [address], [place] [address] Jan, [facility] [address] [id number] [address] [place] [address], [place] [address] Dec, [facility] [address] [id number] [address] [place] [address], [place] [address] Dec, [facility] [address] [id number] [address] [place] [address], [place] [address] Dec, [facility] [address] [id number] [address] [place] [address], [place] [address] Dec, [facility] [address] [id number] [address] [place] [address], [place] [id number] Dec, [facility] [address] [id number] [address] [place] [address], [place] [address] 15 Dec, 2013 [facility] [address] [id number] [address] [place] [address], [place] [address] 15 Dec, 2013 [facility] [address] [id number] [address] [place] [address], [place] [address] 11 Dec, 2013 [facility] [address] [id number] [address] [place] [address], [place] [id number] 10 Dec, 2013 [facility] [address] [id number] [address] [place] [address], [place] [id number] 10 Dec, 2013 [facility] [address] [id number] [address] [place] [address], [place] [address] 18 Nov, 2013 [facility] [address] [id number] [address] [place] [address], [place] [address] 17 Nov, 2013 [facility] [address] [id number] [address] [place] [address], [place] [address] 17 Nov, 2013 [facility] [address] [id number] [address] [place] [address], [place] [address] 05 Nov, 2013 [facility] [address] [id number] [address] [place] [address], [place] [id number] 05 Nov, 2013 [facility] [address] [id number] [address] [place] [address], [place] [address] Oct, [facility] [address] [id number] [address] [place] [address], [place] [address] Oct, [facility] [address] [id number] [address] [place] [address], [place] [address] Oct, [facility] [address] [id number] [address] [place] [address], [place] [address] Sep, [facility] [address] [id number] [address] [place] [address], [place] [address] Sep, [facility] [address] [id number] [address] [place] [address] [address] Sep, [facility] [address] [id number] [address] [place] [address], [place] [address] Sep, [facility] [address] [id number] [address] [place] [address], [place] [address] Aug, [facility] [address] [id number] [address] [place] [address], [place] [address] Aug, [facility] [address] [id number] [address] [place] [address], [place] [address] Jul, [facility] [address] [id number] [address] [place] [address], [place] [address] Jul, [facility] [address] [id number] [address] [place] [address], [place] [address] Jul, [facility] [address] [id number] [address] [place] [address], [place] [address] Jul, [facility] [address] [id number] [address] [place] [address], [place] [address] Jul, [facility] [address] [id number] [address] [place] [address], [place] [address] 25 Jun, 2013 [facility] [address] [id number] [address] [place] [address], [place] [address] 25 Jun, 2013 [facility] [address] [id number] [address] [place] [id number] 19 Jun, 2013 [facility] [address] [id number] [address] [place] [id number] 18 Sep, 2012 [facility] [address] [id number] [address] [place] [address], [place] [address] 16 Sep2012 [facility] [address] [id number] [address] [place] [id number] 12 Sep2012 [facility] [address] [id number] [address] [place] [id number] 11 Jun, 2013 [facility] [facility] [address] [id number] [address] [place] [address], [place] [address] May, [facility] [address] [id number] [address] [place] [address], [place] [address] May, [facility] [address] [id number] [address] [place] [address], [place] [address] Apr, [facility] [address] [id number] [address] [place] [address], [place] [address] Apr, [facility] [address] [id number] [address] [place] [address], [place] [address] Apr, [facility] [address] [id number] [address] [place] [address], [place] [address] Mar, [facility] [address] [id number] [address] [place] [address], [place] [address] Mar, [facility] [address] [id number] [address] [place] [address], [place] [address] February, [facility] [address] [id number] [address] [place] [address], [place] [address] February, [facility] [address] [id number] [address] [place] [address], [place] [address] February, [facility] [address] [id number] [address] [place] [address], [place] [address] February, [facility] [address] [id number] [address] [place] [address], [place] [address] Jan, [facility] [address] [id number] [address] [place] [address], [place] [address] Jan, [facility] [address] [id number] [address] [place] [address], [place] [address] Jan, [facility] [address] [id number] [address] [place] [address], [place] [address] Dec, [facility] [address] [id number] [address] [place] [address], [place] [address] Dec, [facility] [address] [id number] [address] [place] [address], [place] [address] Dec, [facility] [address] [id number] [address] [place] [address], [place] [address] Dec, [facility] [address] [id number] [address] [place] [address], [place] [address] Nov, [facility] [address] [id number] [address] [place] [address], [place] [address] Nov, [facility] [address] [id number] [address] [place] [address], [place] [address] Oct, [facility] [address] [id number] [address] [place] [address], [place] [address] Oct, [facility] [address] [id number] [address] [place] [address], [place] [address] Oct, [facility] [address] [id number] [address] [place] [address], [place] [address] Oct, [facility] [address] [id number] [address] [place] [address], [place] [address] Aug, [facility] [address] [id number] [address] [place] [address], [place] [address] Aug, [facility] [address] [id number] [address] [place] [address], [place] [address] Jun, [facility] [address] [id number] [address] [place] [address], [place] [address] May, [facility] [address] [id number] [address] [place] [address], [place] [address] May, [facility] [address] [id number] [address] [place] [address], [place] [address] Apr, [facility] [address] [id number] [address] [place] [address], [place] [address] Apr, [facility] [address] [id number] [address] [place] [address], [place] [address] 05 Apr, 2012 [facility] [address] [id number] [address] [place] [address], [place] [address] 20 Mar, 2012 [facility] [address] [id number] [address] [place] [address], [place] [address] Mar, [facility] [address] [id number] [address] [place] [address], [place] [address] 13 Mar, 2012 [facility] [address] [id number] [address] [place] [address], [place] [address] Mar, [facility] [address] [id number] [address] [place] [address], [place] [address] Mar, [facility] [address] [id number] [address] [place] [address], [place] [address] February, [facility] [address] [id number] [address] [place] [address], [place] [address] February, [facility] [address] [id number] [address] [place] [address], [place] [address] February, [facility] [address] [id number] [address] [place] [address], [place] [address] February, [facility] [address] [id number] [address] [place] [address], [place] [address] February, [facility] [address] [id number] [address] [place] [address], [place] [address] February, [facility] [address] [id number] [address] [place] [address], [place] [address] February, [facility] [address] [id number] [address] [place] [address], [place] [address] Jan, [facility] [address] [id number] [address] [place] [address], [place] [address] 18 Jan, 2012 [facility] [address] [id number] [address] [place] [address], [place] [address] 17 Jan, 2012 [facility] [address] [id number] [address] [place] [address], [place] [address] 13 Jan, 2012 [facility] [address] [id number] [address] [place] [address], [place] [address] 10 Jan, 2012 [facility] [address] [id number] [address] [place] [address], [place] [address] 04 Jan, 2012 [facility] [address] [id number] [address] [place] [address], [place] [address] 30 Dec, 2011 [facility] [address] [id number] [address] [place] [address], [place] [address] 24 Dec, 2011 [facility] [address] [id number] [address] [place] [address], [place] [address] 20 Dec, 2011 [facility] [address] [id number] [address] [place] [address], [place] [address] 13 Dec, 2011 [facility] [address] [id number] [address] [place] [address], [place] [address] 06 Dec, 2011 [facility] [address] [id number] [address] [place] [address], [place] [address] 28 Nov, 2011 [facility] [address] [id number] [address] [place] [address], [place] [address] 27 Nov, 2011 [facility] [address] [id number] [address] [place] [address], [place] [address] 25 Nov, 2011 [facility] [address] [id number] [address] [place] [address], [place] [address] 14 Nov, 2011 [facility] [address] [id number] [address] [place] [address], [place] [address] 10 Nov, 2011 [facility] [address] [id number] [address] [place] [address], [place] [address] 01 Nov, 2011 [facility] [address] [id number] [address] [place] [address], [place] [address] 26 Oct, 2011 [facility] [address] [id number] [address] [place] [address], [place] [address] 10 Oct, 2011 [facility] [address] [id number] [address] [place] [address], [place] [address] Oct, [facility] [address] [id number] [address] [place] [address], [place] [address] Oct, [facility] [address] [id number] [address] [place] [address], [place] [address] Oct, [facility] [address] [id number] [address] [place] [address], [place] [address] Sep, [facility] [address] [id number] [address] [place] [address], [place] [address] Sep, [facility] [address] [id number] [address] [place] [address], [place] [address] Sep, [facility] [address] [id number] [address] [place] [address], [place] [address] Sep, [facility] [address] [id number] [address] [place] [address], [place] [address] 14 Sep, 2011 [facility] [address] [id number] [address] [place] [address], [place] [address] Sep, [facility] [address] [id number] [address] [place] [address], [place] [address] Sep, [facility] [address] [id number] [address] [place] [address], [place] [address] Sep, [facility] [address] [id number] [address] [place] [address], [place] [address] 05 Sep, 2011 [facility] [address] [id number] [address] [place] [address], [place] [address] Aug, [facility] [address] [id number] [address] [place] [address], [place] [address] Aug, [facility] [address] [id number] [address] [place] [address], [place] [address] Aug, [facility] [address] [id number] [address] [place] [address], [place] [address] Aug, [facility] [address] [id number] [address] [place] [address], [place] [address] Aug, [facility] [address] [id number] [address] [place] [address], [place] [address] Aug, [facility] [address] [id number] [address] [place] [address], [place] [address] Aug, [facility] [address] [id number] [address] [place] [address], [place] [address] Aug, [facility] [address] [id number] [address] [place] [address], [place] [address] Aug, [facility] [address] [id number] [address] [place] [address], [place] [address] Aug, [facility] [address] [id number] [address] [place] [address], [place] [address] Aug, [facility] [address] [id number] [address] [place] [address], [place] [address] Aug, [facility] [address] [id number] [address] [place] [address], [place] [address] Jul, [facility] [address] [id number] [address] [place] [address], [place] [address] Jul, [facility] [address] [id number] [address] [place] [address], [place] [address] 24 Jul, 2011 [facility] [address] [id number] [address] [place] [address], [place] [address] Jul, [facility] [address] [id number] [address] [place] [address], [place] [address] Jul, [facility] [address] [id number] [address] [place] [address], [place] [address] 19 Jul, 2011 [facility] [address] [id number] [address] [place] [address], [place] [address] Jul, [facility] [place] [address] [id number] [address] [place] [address] Jul, [facility] [place] [address] [id number] [address] [place] [address] Jul, [facility] [place] [address] [id number] [address] [place] [address] Jul, [facility] [place] [address] [id number] [address] [place] [address] Nov, [facility] [place] [address] [id number] [address] [place] [address] Aug, [facility] [place] [address] [id number] [address] [place] [address] Aug, [facility] [place] [address] [facility] [id number] [address] [place] [address] Aug, [facility] [place] [address] [id number] [address] [place] [address] Aug, [facility] [place] [address] [id number] [address] [place] [address] Jul, IMMUNIZATIONS No Known Immunizations SOCIAL HISTORY [...] attempt by hanging 2015 Hospitalization History [facility] 01/30/2018-02/10/20 08 Hospitalization History [email or web address]- cutting/SI 05/04/18-
--- OUTSIDE RECORDS SUMMARY | 2020-04-04 02:05 | XMS REPORT ---
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 Active 17588588 Problem Generalized anxiety disorder 300.02 A ctive 00427832 Problem Obsessive-compulsive disorders 300.3 Active 995174495 Problem Catatonic schizophrenia, 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 [id number] Problem Disorganized schizophrenia, 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 98820386 Problem Paranoid schizophrenia F20.0 Active 42136887 Problem Borderline personality disorder F60.3 Active 90574738 Problem Paranoid schizophrenia, unspecified condition 295.30 Active 20290460 Problem Schizoaffective disorder, depressive type F25.1 Active 86293553 Problem Bipolar disorder, unspecified 296.80 Active 77027578 Problem Schizoaffective disorder, unspecified F25.9 Active 68706596 Problem Attention deficit hyperactivity disorder (ADHD), inattentive type, 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 [id number] [address] [place] [phone] May, [facility] [address] [facility] [id number] [address] [place] [phone] Apr, [facility] [address] 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 and Borderline personality disorder F60.3 [facility] [address] [id number] [address] [place] [phone] Mar, Paranoid schizophrenia F20.0 [facility] [address] [id number] [address] [place] [phone] Mar, Paranoid schizophrenia F20.0 ; Posttraumatic stress disorder F43.10 ; Attention deficit hyperactivity disorder (ADHD), inattentive type, 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 and Borderline personality disorder F60.3 [facility] [address] [id number] [address] [place] [phone] February, Paranoid schizophrenia F20.0 [facility] [address] [id number] [address] [place] [phone] Jan, Paranoid schizophrenia F20.0 ; Posttraumatic stress disorder F43.10 ; Attention deficit hyperactivity disorder (ADHD), inattentive type, 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 and Borderline personality disorder F60.3 [facility] [address] [id number] [address] [place] [phone] Dec, Paranoid schizophrenia F20.0 ; Posttraumatic stress disorder F43.10 ; Attention deficit hyperactivity disorder (ADHD), inattentive type, 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 and Borderline personality disorder F60.3 [facility] [address] [id number] [address] [place] [id number] Dec, Paranoid schizophrenia F20.0 ; Posttraumatic stress disorder F43.10 ; Attention deficit hyperactivity disorder (ADHD), inattentive type, 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 and Borderline personality disorder F60.3 [facility] [address] [id number] [address] [place] [phone] Oct, Paranoid schizophrenia F20.0 ; Posttraumatic stress disorder F43.10 ; Attention deficit hyperactivity disorder (ADHD), inattentive type, 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 [id number] [address] [place] [phone] Aug, [facility] [address] 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 [id number] [address] [place] [phone] Jul, Paranoid schizophrenia F20.0 [facility] [address] 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 [id number] [address] [place] [phone] May, Paranoid schizophrenia F20.0 [facility] [address] 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 and Borderline personality disorder F60.3 [facility] [address] [id number] [address] [place] [phone] Apr, [facility] [address] [id number] [address] [place] [phone] Apr, Schizoaffective disorder, de pressive type F25.1 and Borderline personality disorder F60.3 [facility] [address] [id number] [address] [place] [phone] Apr, Paranoid schizophrenia F20.0 ; Posttraumatic stress disorder F43.10 ; Attention deficit hyperactivity disorder (ADHD), inattentive type, 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 and Borderline personality disorder F60.3 [facility] [address] [id number] [address] [place] [phone] Apr, [facility] [address] [id number] [address] [place] [phone] Apr, Paranoid schizophrenia F20.0 ; Posttraumatic stress disorder F43.10 ; Attention deficit hyperactivity disorder (ADHD), inattentive type, 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 and Borderline personality disorder F60.3 [facility] [address] [id number] [address] [place] [phone] Apr, [facility] [address] [id number] [address] [place] [phone] Mar, Paranoid schizophrenia F20.0 [facility] [address] [id number] [address] [place] [phone] Mar, [facility] [address] [id number] [address] [place] [phone] Mar, Paranoid schizophrenia F20.0 ; Posttraumatic stress disorder F43.10 ; Attention deficit hyperactivity disorder (ADHD), inattentive type, 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 and Borderline personality disorder F60.3 [facility] [address] [id number] [facility] [place] [address] February, Paranoid schizophrenia F20.0 [facility] [address] [id number] [facility] [place] [address] February, Paranoid schizophrenia F20.0 ; Posttraumatic stress disorder F43.10 ; Attention deficit hyperactivity disorder (ADHD), inattentive type, 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 and Borderline personality disorder F60.3 [facility] [address] [id number] [address] [place] [address], [place] [address] February, Paranoid schizophrenia F20.0 ; Posttraumatic stress disorder F43.10 ; Attention deficit hyperactivity disorder (ADHD), inattentive type, 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 and Borderline personality disorder F60.3 [facility] [address] [id number] [address] [place] [phone] February, [facility] [address] [id number] [address] [place] [phone] February, Paranoid schizophrenia F20.0 [facility] [address] [id number] [address] [place] [address], [place] [address] February, Paranoid schizophrenia F20.0 [facility] [address] [id number] [address] [place] [address], [place] [address] February, Paranoid schizophrenia F20.0 ; Posttraumatic stress disorder F43.10 ; Attention deficit hyperactivity disorder (ADHD), inattentive type, 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 and Borderline personality disorder F60.3 [facility] [address] [id number] [address] [place] [address], [place] [address] Jan, Paranoid schizophrenia F20.0 ; Posttraumatic stress disorder F43.10 ; Attention deficit hyperactivity disorder (ADHD), inattentive type, 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 and Borderline personality disorder F60.3 [facility] [address] [id number] [address] [place] [address], [place] [address] Jan, Paranoid schizophrenia F20.0 [facility] [address] [id number] [address] [place] [phone] Jan, Paranoid schizophrenia F20.0 [facility] [address] [id number] [address] [place] [phone] Jan, Paranoid schizophrenia F20.0 ; Posttraumatic stress disorder F43.10 ; Attention deficit hyperactivity disorder (ADHD), inattentive type, 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 and Borderline personality disorder F60.3 [facility] [address] [id number] [address] [place] [phone] Dec, [facility] [address] [id number] [address] [place] [phone] Nov, Paranoid schizophrenia F20.0 ; Posttraumatic stress disorder F43.10 ; Attention deficit hyperactivity disorder (ADHD), inattentive type, 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 and Borderline personality disorder F60.3 [facility] [address] [id number] [address] [place] [phone] Nov, [facility] [address] [id number] [address] [place] [phone] Oct, Paranoid schizophrenia F20.0 [facility] [address] [id number] [address] [place] [phone] Oct, Paranoid schizophrenia F20.0 ; Posttraumatic stress disorder F43.10 ; Attention deficit hyperactivity disorder (ADHD), inattentive type, 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 [id number] [address] [place] [phone] Sep, [facility] [address] 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 and Borderline personality disorder F60.3 [facility] [address] [id number] [address] [place] [phone] Sep, Paranoid schizophrenia F20.0 [facility] [address] [id number] [address] [place] [phone] Aug, Paranoid schizophrenia F20.0 ; Posttraumatic stress disorder F43.10 ; Attention deficit hyperactivity disorder (ADHD), inattentive type, 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 and Borderline personality disorder F60.3 [facility] [address] [id number] [address] [place] [phone] Aug, Paranoid schizophrenia F20.0 ; Posttraumatic stress disorder F43.10 ; Attention deficit hyperactivity disorder (ADHD), inattentive type, 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 and Borderline personality disorder F60.3 [facility] [address] [id number] [address] [place] [id number] Jun, Paranoid schizophrenia F20.0 ; Posttraumatic stress disorder F43.10 ; Attention deficit hyperactivity disorder (ADHD), inattentive type, 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 and Borderline personality disorder F60.3 [facility] [address] [id number] [address] [place] [phone] May, 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 Z79.899 [facility] [address] [id number] [address] [place] [phone] May, [facility] [address] [id number] [address] [place] [id number] May, [facility] [address] [id number] [address] [place] [phone] May, Attention deficit hyperactiv ity disorder (ADHD), inattentive type, mild F90.0 [facility] [address] [id number] [address] [place] [phone] May, [facility] [address] [id number] [address] [place] [phone] May, Attention deficit hyperactiv ity disorder (ADHD), inattentive type, mild F90.0 [facility] [address] [id number] [address] [place] [phone] May, Paranoid schizophrenia F20.0 ; Posttraumatic stress disorder F43.10 ; Attention deficit hyperactivity disorder (ADHD), inattentive type, 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 and 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 [facility] [address] [id number] [address] [place] [phone] Apr, Paranoid schizophrenia F20.0 [facility] [address] [id number] [address] [place] [phone] Apr, Paranoid schizophrenia F20.0 ; Posttraumatic stress disorder F43.10 and Attention deficit hyperactivity disorder (ADHD), inattentive type, 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10 and Attention deficit hyperactivity disorder (ADHD), inattentive type, 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 [facility] [address] [id number] [address] [place] [phone] Jan, Paranoid schizophrenia F20.0 ; Posttraumatic stress disorder F43.10 and Attention deficit hyperactivity disorder (ADHD), inattentive type, 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 [facility] [address] [id number] [address] [place] [id number] Dec, Dental examination Z01.20 [facility] [address] [id number] [address] [place] [id number] Nov, Dental examination Z01.20 [facility] [address] [id number] [address] [place] [address] [id number] Nov, Dental examination Z01.20 [facility] [address] [id number] [address] [place] [address] [id number] Nov, Dental caries K02.9 [facility] [address] [id number] [address] [place] [phone] Nov, High risk medication use Z79 .899 [facility] [address] [id number] [address] [place] [phone] Nov, Paranoid schizophrenia F20.0 ; Posttraumatic stress disorder F43.10 ; Attention deficit hyperactivity disorder (ADHD), inattentive type, 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 [id number] [address] [place] [phone] Jul, [facility] [address] 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 [facility] [address] [id number] [address] [place] [phone] May, [facility] [address] [id number] [address] [place] [id number] May, Paranoid schizophrenia F20.0 [facility] [address] [id number] [address] [place] [phone] May, [facility] [address] [id number] [address] [place] [id number] May, Paranoid schizophrenia F20.0 [facility] [address] [id number] [address] [place] [id number] May, Schizoaffective disorder, un specified F25.9 [facility] [address] [id number] [address] [place] [phone] May, Schizoaffective disorder, un specified F25.9 [facility] [address] [id number] [address] [place] [phone] May, [facility] [address] [id number] [address] [place] [phone] May, Paranoid schizophrenia F20.0 [facility] [address] [id number] [address] [place] [phone] May, Paranoid schizophrenia F20.0 ; Posttraumatic stress disorder F43.10 and Attention deficit hyperactivity disorder (ADHD), inattentive type, 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 [facility] [address] [id number] [address] [place] [phone] Mar, [facility] [address] [id number] [address] [place] [phone] Mar, Paranoid schizophrenia F20.0 ; Posttraumatic stress disorder F43.10 and Attention deficit hyperactivity disorder (ADHD), inattentive type, 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 [facility] [address] [id number] [address] [place] [phone] Mar, Paranoid schizophrenia F20.0 [facility] [address] [id number] [address] [place] [phone] Mar, Paranoid schizophrenia F20.0 ; Attention deficit hyperactivity disorder (ADHD), inattentive type, 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 and Posttraumatic stress disorder F43.10 [facility] [address] [id number] [address] [place] [phone] Mar, [facility] [address] [id number] [address] [place] [phone] Mar, Paranoid schizophrenia F20.0 ; Posttraumatic stress disorder F43.10 and Attention deficit hyperactivity disorder (ADHD), inattentive type, 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 [facility] [address] [id number] [address] [place] [id number] February, [facility] [address] [id number] [address] [place] [id number] February, [facility] [address] [id number] [address] [place] [id number] February, [facility] [address] [id number] [address] [place] [address] February, [facility] [address] [id number] [address] [place] [phone] Jan, Paranoid schizophrenia F20.0 [facility] [address] [id number] [address] [place] [address] [id number] Jan, Dental examination Z01.20 [facility] [address] [id number] [address] [place] [address] [id number] Jan, Dental caries K02.9 [facility] [address] [id number] [address] [place] [address] [id number] Jan, Dental examination Z01.20 [facility] [address] [id number] [address] [place] [address] [id number] Dec, Encounter for dental examina tion Z01.20 [facility] [address] [id number] [address] [place] [id number] 30 Dec, 2015 Paranoid schizophrenia F20.0 [facility] [address] [id number] [address] [place] [address] [id number] 15 Dec, 2015 Dental examination Z01.20 [facility] [address] [id number] [address] [place] [id number] 07 Dec, 2015 [facility] [address] [id number] [address] [place] [id number] 07 Dec, 2015 Paranoid schizophrenia F20.0 ; Posttraumatic stress disorder F43.10 and Attention deficit hyperactivity disorder (ADHD), inattentive type, 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 [facility] [address] [id number] [address] [place] [id number] Nov, Schizoaffective disorder, un specified F25.9 [facility] [address] [id number] [address] [place] [id number] Oct, Paranoid schizophrenia F20.0 [facility] [address] [id number] [address] [place] [id number] Oct, [facility] [address] [id number] [address] [place] [id number] Sep, Paranoid schizophrenia F20.0 ; Posttraumatic stress disorder F43.10 and Attention deficit hyperactivity disorder (ADHD), inattentive type, 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 [facility] [address] [id number] [address] [place] [id number] Sep, [facility] [address] [id number] [address] [place] [id number] Sep, Paranoid schizophrenia F20.0 ; Posttraumatic stress disorder F43.10 and Attention deficit hyperactivity disorder (ADHD), inattentive type, 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 [id number] [address] [place] [id number] Jul, Bipolar disorder, unspecifie d F31.9 [facility] [address] [facility] [id number] [address] [place] [id number] Jul, [facility] [address] [facility] [id number] [address] [place] [phone] Jun, [facility] [address] [facility] [id number] [address] [place] [id number] Jun, Schizoaffective disorder, ch ronic 295.72 ; Posttraumatic stress disorder 309.81 and Attention deficit disorder of childhood without mention of hyperactivity 314.00 [facility] [address] [facility] [id number] [address] [place] [id number] May, [facility] [address] [facility] [id number] [address] [place] [id number] May, [facility] [address] [id number] [address] [place] [id number] May, Schizoaffective disorder, ch ronic 295.72 ; Posttraumatic stress disorder 309.81 ; Attention deficit disorder of childhood without mention of hyperactivity 314.00 and Bipolar disorder, unspecified 296.80 [facility] [address] [id number] [address] [place] [id number] Apr, Schizoaffective disorder, ch ronic 295.72 [facility] [address] [facility] [id number] [address] [place] [phone] Apr, [facility] [address] 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 [facility] [address] [id number] [address] [place] [id number] Mar, [facility] [address] [id number] [address] [place] [id number] Mar, [facility] [address] [id number] [address] [place] [id number] Mar, [facility] [address] [id number] [address] [place] [phone] Mar, [facility] [address] [id number] [address] [place] [id number] February, Schizoaffective disorder, ch ronic 295.72 [facility] [address] [id number] [address] [place] [id number] February, [facility] [address] [id number] [address] [place] [id number] February, Attention 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 ; Posttraumatic stress disorder 309.81 and Schizoaffective disorder, chronic 295.72 [facility] [address] [id number] [address] [place] [id number] Jan, [facility] [address] [id number] [address] [place] [id number] Jan, [facility] [address] [id number] [address] [place] [phone] Jan, [facility] [address] [id number] [address] [place] [phone] Dec, [facility] [address] [id number] [address] [place] [phone] Dec, [facility] [address] [id number] [address] [place] [address], [place] [address] Dec, [facility] [address] [id number] [address] [place] [address], [place] [id number] Dec, [facility] [address] [id number] [address] [place] [address], [place] [address] Dec, [facility] [address] [id number] [address] [place] [address], [place] [address] Dec, [facility] [address] [id number] [address] [place] [address], [place] [address] Dec, [facility] [address] [id number] [address] [place] [address], [place] [address] Dec, [facility] [address] [id number] [address] [place] [address], [place] [address] Nov, [facility] [address] [id number] [address] [place] [address], [place] [address] Nov, [facility] [address] [id number] [address] [place] [address], [place] [address] Nov, [facility] [address] [id number] [address] [place] [address], [place] [address] Nov, [facility] [address] [id number] [address] [place] [address], [place] [address] Nov, 2014 [facility] [address] [id number] [address] [place] [id number] Nov, 2014 [facility] [address] [id number] [address] [place] [address], [place] [address] Nov, 2014 [facility] [address] [id number] [address] [place] [id number] Nov, 2014 [facility] [address] [id number] [address] [place] [phone] Nov, [facility] [address] [id number] [address] [place] [address], [place] [address] Nov, [facility] [address] [id number] [address] [place] [address], [place] [address] Oct, [facility] [address] [id number] [address] [place] [address], [place] [address] Oct, [facility] [address] [id number] [address] [place] [address], [place] [address] Oct, [facility] [address] [id number] [address] [place] [address], [place] [address] Oct, [facility] [address] [id number] [address] [place] [address], [place] [address] Oct, [facility] [address] [id number] [address] [place] [address], [place] [address] Oct, [facility] [address] [id number] [address] [place] [address], [place] [address] Oct, [facility] [address] [id number] [address] [place] [address], [place] [address] Sep, [facility] [address] [id number] [address] [place] [address], [place] [address] 17 Sep, 2014 [facility] [address] [id number] [address] [place] [address], [place] [address] 15 Sep, 2014 [facility] [address] [id number] [address] [place] [address], [place] [address] 15 Sep, 2014 [facility] [address] [id number] [address] [place] [address], [place] [address] Aug, [facility] [address] [id number] [address] [place] [address], [place] [address] 20 Aug, 2014 [facility] [address] [id number] [address] [place] [address], [place] [address] 14 Aug, 2014 [facility] [address] [id number] [address] [place] [address], [place] [address] Aug, [facility] [address] [id number] [address] [place] [address], [place] [address] Aug, [facility] [address] [id number] [address] [place] [address], [place] [address] Aug, [facility] [address] [id number] [address] [place] [address], [place] [address] 29 Jul, 2014 [facility] [address] [id number] [address] [place] [address], [place] [address] 29 Jul, 2014 [facility] [address] [id number] [address] [place] [address], [place] [address] Jul, [facility] [address] [id number] [address] [place] [address], [place] [address] 24 Jul, 2014 [facility] [address] [id number] [address] [place] [address], [place] [address] Jul, [facility] [address] [id number] [address] [place] [address], [place] [address] 15 Jul, 2014 [facility] [address] [id number] [address] [place] [address], [place] [address] 27 Jun, 2014 [facility] [address] [id number] [address] [place] [address], [place] [address] 27 Sep, 2013 [facility] [address] [id number] [address] [place] [address], [place] [address] 26 Jun, 2013 [facility] [address] [id number] [address] [place] [address], [place] [address] 26 Sep, 2013 [facility] [address] [id number] [address] [place] [address], [place] [address] 26 Jun, 2013 [facility] [address] [id number] [address] [place] [address], [place] [address] 26 Sep, 2013 [facility] [address] [id number] [address] [place] [address], [place] [address] 16 Sep, 2013 [facility] [address] [id number] [facility] [place] [address] 16 Jun, 2013 [facility] [address] [id number] [facility] [place] [address] Jun, [facility] [address] [id number] [facility] [place] [address] Jun, [facility] [address] [id number] [facility] [place] [address] Jun, [facility] [address] [id number] [facility] [place] [address] May, [facility] [address] [id number] [address] [place] [address], [place] [address] May, [facility] [address] [id number] [address] [place] [address], [place] [address] May, [facility] [address] [id number] [address] [place] [address], [place] [address] May, [facility] [address] [id number] [address] [place] [address], [place] [address] May, [facility] [address] [id number] [address] [place] [address], [place] [address] May, [facility] [address] [id number] [address] [place] [address], [place] [address] May, [facility] [address] [id number] [address] [place] [address], [place] [address] May, [facility] [address] [id number] [address] [place] [address], [place] [address] May, [facility] [address] [id number] [address] [place] [address], [place] [address] May, [facility] [address] [id number] [address] [place] [address], [place] [address] Apr, [facility] [address] [id number] [address] [place] [address], [place] [address] Apr, [facility] [address] [id number] [facility] [address] Apr, [facility] [address] [id number] [facility] [address] Apr, [facility] [address] [id number] [facility] [place] [address] Apr, [facility] [address] [id number] [address] [place] [address], [place] [address] Apr, [facility] [address] [id number] [address] [place] [address], [place] [address] Apr, [facility] [address] [id number] [address] [place] [address], [place] [address] Apr, [facility] [address] [id number] [address] [place] [address], [place] [address] Apr, [facility] [address] [id number] [address] [place] [address], [place] [address] Apr, [facility] [address] [id number] [address] [place] [address], [place] [address] Mar, [facility] [address] [id number] [address] [place] [address], [place] [address] Mar, [facility] [address] [id number] [address] [place] [address], [place] [address] Mar, [facility] [address] [id number] [address] [place] [address], [place] [address] Mar, [facility] [address] [id number] [address] [place] [address], [place] [address] Mar, [facility] [address] [id number] [address] [place] [address], [place] [address] Mar, [facility] [address] [id number] [address] [place] [address], [place] [address] Mar, [facility] [address] [id number] [facility] [place] [address] 16 Mar, 2014 [facility] [address] [id number] [address] [place] [address], [place] [address] 16 Mar, 2014 [facility] [address] [id number] [address] [place] [address], [place] [address] Mar, [facility] [address] [id number] [address] [place] [address], [place] [address] Mar, [facility] [address] [id number] [address] [place] [address], [place] [address] Mar, [facility] [address] [id number] [address] [place] [address], [place] [address] Mar, [facility] [address] [id number] [address] [place] [address], [place] [address] Mar, [facility] [address] [id number] [address] [place] [address], [place] [address] Mar, [facility] [address] [id number] [address] [place] [address], [place] [address] Mar, [facility] [address] [id number] [address] [place] [address], [place] [address] Mar, [facility] [address] [id number] [address] [place] [address], [place] [address] Mar, [facility] [address] [id number] [address] [place] [address], [place] [address] Mar, [facility] [address] [id number] [address] [place] [address], [place] [address] Mar, [facility] [address] [id number] [address] [place] [address], [place] [address] February, [facility] [address] [id number] [address] [place] [address], [place] [address] February, [facility] [address] [id number] [address] [place] [address], [place] [address] February, [facility] [address] [id number] [facility] [place] [address] February, [facility] [address] [id number] [address] [place] [address], [place] [address] February, [facility] [address] [id number] [facility] [place] [address] February, [facility] [address] [id number] [address] [place] [address], [place] [address] February, [facility] [address] [id number] [address] [place] [address], [place] [address] February, [facility] [address] [id number] [address] [place] [address], [place] [address] February, [facility] [address] [id number] [address] [place] [address], [place] [address] February, [facility] [address] [id number] [address] [place] [address], [place] [address] February, [facility] [address] [id number] [address] [place] [address], [place] [address] February, [facility] [address] [id number] [address] [place] [address], [place] [address] February, [facility] [address] [id number] [address] [place] [address], [place] [address] February, [facility] [address] [id number] [address] [place] [address], [place] [address] February, [facility] [address] [id number] [address] [place] [address], [place] [address] February, [facility] [address] [id number] [address] [place] [address], [place] [address] February, [facility] [address] [id number] [address] [place] [address], [place] [address] February, [facility] [address] [id number] [address] [place] [address], [place] [address] February, [facility] [address] [id number] [address] [place] [address], [place] [address] February, [facility] [address] [id number] [address] [place] [address], [place] [address] February, [facility] [address] [id number] [address] [place] [address], [place] [address] Jan, [facility] [address] [id number] [address] [place] [address], [place] [address] Jan, [facility] [address] [id number] [address] [place] [address], [place] [address] Jan, [facility] [address] [id number] [address] [place] [address], [place] [address] Jan, [facility] [address] [id number] [address] [place] [address], [place] [address] Jan, [facility] [address] [id number] [address] [place] [address], [place] [address] Jan, [facility] [address] [id number] [address] [place] [address], [place] [address] Jan, [facility] [address] [id number] [address] [place] [address], [place] [address] Jan, [facility] [address] [id number] [address] [place] [address], [place] [address] Dec, [facility] [address] [id number] [address] [place] [address], [place] [address] Dec, [facility] [address] [id number] [address] [place] [address], [place] [address] Dec, [facility] [address] [id number] [address] [place] [address], [place] [address] Dec, [facility] [address] [id number] [address] [place] [address], [place] [address] Dec, [facility] [address] [id number] [address] [place] [address], [place] [address] 15 Dec, 2013 [facility] [address] [id number] [address] [place] [address], [place] [address] 15 Dec, 2013 [facility] [address] [id number] [address] [place] [address], [place] [address] 11 Dec, 2013 [facility] [address] [id number] [address] [place] [address], [place] [address] 10 Dec, 2013 [facility] [address] [id number] [address] [place] [address], [place] [address] 10 Dec, 2013 [facility] [address] [id number] [address] [place] [address], [place] [address] 18 Nov, 2013 [facility] [address] [id number] [address] [place] [address], [place] [address] 17 Nov, 2013 [facility] [address] [id number] [address] [place] [address], [place] [address] 17 Nov, 2013 [facility] [address] [id number] [address] [place] [address], [place] [address] 05 Nov, 2013 [facility] [address] [id number] [address] [place] [address], [place] [address] 05 Nov, 2013 [facility] [address] [id number] [address] [place] [address], [place] [address] Oct, [facility] [address] [id number] [address] [place] [address], [place] [address] Oct, [facility] [address] [id number] [address] [place] [address], [place] [address] Oct, [facility] [address] [id number] [address] [place] [address], [place] [address] Sep, [facility] [address] [id number] [address] [place] [address], [place] [address] Sep, [facility] [address] [id number] [address] [place] [address] [address] Sep, [facility] [address] [id number] [address] [place] [address], [place] [address] Sep, [facility] [address] [id number] [address] [place] [address], [place] [address] Aug, [facility] [address] [id number] [address] [place] [address], [place] [address] Aug, [facility] [address] [id number] [address] [place] [address], [place] [address] Jul, [facility] [address] [id number] [address] [place] [address], [place] [address] Jul, [facility] [address] [id number] [address] [place] [address], [place] [address] Jul, [facility] [address] [id number] [address] [place] [address], [place] [address] Jul, [facility] [address] [id number] [address] [place] [address], [place] [address] Jul, [facility] [address] [id number] [address] [place] [address], [place] [address] 25 Jun, 2013 [facility] [address] [id number] [address] [place] [address], [place] [address] 25 Jun, 2013 [facility] [address] [id number] [address] [place] [id number] 19 Jun, 2013 [facility] [address] [id number] [address] [place] [address] 18 Sep, 2012 [facility] [address] [id number] [address] [place] [address] [address] 16 Sep2012 [facility] [address] [id number] [address] [place] [address] 12 Sep2012 [facility] [address] [id number] [address] [place] [id number] 11 Jun, 2013 [facility] [address] [id number] [address] [place] [address], [place] [address] May, [facility] [address] [id number] [address] [place] [address], [place] [address] May, [facility] [address] [id number] [address] [place] [address], [place] [address] Apr, [facility] [address] [id number] [address] [place] [address], [place] [address] Apr, [facility] [address] [id number] [address] [place] [address], [place] [address] Apr, [facility] [address] [id number] [address] [place] [address], [place] [address] Mar, [facility] [address] [id number] [address] [place] [address], [place] [address] Mar, [facility] [address] [id number] [address] [place] [address], [place] [address] February, [facility] [address] [id number] [address] [place] [address], [place] [address] February, [facility] [address] [id number] [address] [place] [address], [place] [address] February, [facility] [address] [id number] [address] [place] [address], [place] [address] February, [facility] [address] [id number] [address] [place] [address], [place] [address] Jan, [facility] [address] [id number] [address] [place] [address], [place] [address] Jan, [facility] [address] [id number] [address] [place] [address], [place] [address] Jan, [facility] [address] [id number] [address] [place] [address], [place] [address] Dec, [facility] [address] [id number] [address] [place] [address], [place] [address] Dec, [facility] [address] [id number] [address] [place] [address], [place] [address] Dec, [facility] [address] [id number] [address] [place] [address], [place] [address] Dec, [facility] [address] [id number] [address] [place] [address], [place] [address] Nov, [facility] [address] [id number] [address] [place] [address], [place] [address] Nov, [facility] [address] [id number] [address] [place] [address], [place] [address] Oct, [facility] [address] [id number] [address] [place] [address], [place] [address] Oct, [facility] [address] [id number] [address] [place] [address], [place] [address] Oct, [facility] [address] [id number] [address] [place] [address], [place] [address] Oct, [facility] [address] [id number] [address] [place] [address], [place] [address] Aug, [facility] [address] [id number] [address] [place] [address], [place] [address] Aug, [facility] [address] [id number] [address] [place] [address], [place] [address] Jun, [facility] [address] [id number] [address] [place] [address], [place] [address] May, [facility] [address] [id number] [address] [place] [address], [place] [address] May, [facility] [address] [id number] [address] [place] [address], [place] [address] Apr, [facility] [address] [id number] [address] [place] [address], [place] [address] Apr, [facility] [address] [id number] [address] [place] [address], [place] [address] 05 Apr, 2012 [facility] [address] [id number] [address] [place] [address], [place] [address] 20 Mar, 2012 [facility] [address] [id number] [address] [place] [address], [place] [address] Mar, [facility] [address] [id number] [address] [place] [address], [place] [address] 13 Mar, 2012 [facility] [address] [id number] [address] [place] [address], [place] [address] Mar, [facility] [address] [id number] [address] [place] [address], [place] [address] Mar, [facility] [address] [id number] [address] [place] [address], [place] [address] February, [facility] [address] [id number] [address] [place] [address], [place] [address] February, [facility] [address] [id number] [address] [place] [address], [place] [address] February, [facility] [address] [id number] [address] [place] [address], [place] [address] February, [facility] [address] [id number] [address] [place] [address], [place] [address] February, [facility] [address] [id number] [address] [place] [address], [place] [address] February, [facility] [address] [id number] [address] [place] [address], [place] [address] February, [facility] [address] [id number] [address] [place] [address], [place] [address] Jan, [facility] [address] [id number] [address] [place] [address], [place] [address] 18 Jan, 2012 [facility] [address] [id number] [address] [place] [address], [place] [address] 17 Jan, 2012 [facility] [address] [id number] [address] [place] [address], [place] [address] 13 Jan, 2012 [facility] [address] [id number] [address] [place] [address], [place] [address] 10 Jan, 2012 [facility] [address] [id number] [address] [place] [address], [place] [address] 04 Jan, 2012 [facility] [address] [id number] [address] [place] [address], [place] [address] 30 Dec, 2011 [facility] [address] [id number] [address] [place] [address], [place] [address] 24 Dec, 2011 [facility] [address] [id number] [address] [place] [address], [place] [address] 20 Dec, 2011 [facility] [address] [id number] [address] [place] [address], [place] [address] 13 Dec, 2011 [facility] [address] [id number] [address] [place] [address], [place] [address] 06 Dec, 2011 [facility] [address] [id number] [address] [place] [address], [place] [address] 28 Nov, 2011 [facility] [address] [id number] [address] [place] [address], [place] [address] 27 Nov, 2011 [facility] [address] [id number] [address] [place] [address], [place] [address] 25 Nov, 2011 [facility] [address] [id number] [address] [place] [address], [place] [address] 14 Nov, 2011 [facility] [address] [id number] [address] [place] [address], [place] [address] 10 Nov, 2011 [facility] [address] [id number] [address] [place] [address], [place] [address] 01 Nov, 2011 [facility] [address] [id number] [address] [place] [address], [place] [address] 26 Oct, 2011 [facility] [address] [id number] [address] [place] [address], [place] [address] 10 Oct, 2011 [facility] [address] [id number] [address] [place] [address], [place] [address] Oct, [facility] [address] [id number] [address] [place] [address], [place] [address] Oct, [facility] [address] [id number] [address] [place] [address], [place] [address] Oct, [facility] [address] [id number] [address] [place] [address], [place] [address] Sep, [facility] [address] [id number] [address] [place] [address], [place] [address] Sep, [facility] [address] [id number] [address] [place] [address], [place] [address] Sep, [facility] [address] [id number] [address] [place] [address], [place] [address] Sep, [facility] [address] [id number] [address] [place] [address], [place] [address] 14 Sep, 2011 [facility] [address] [id number] [address] [place] [address], [place] [address] Sep, [facility] [address] [id number] [address] [place] [address], [place] [address] Sep, [facility] [address] [id number] [address] [place] [address], [place] [address] Sep, [facility] [address] [id number] [address] [place] [address], [place] [address] 05 Sep, 2011 [facility] [address] [id number] [address] [place] [address], [place] [address] Aug, [facility] [address] [id number] [address] [place] [address], [place] [address] Aug, [facility] [address] [id number] [address] [place] [address], [place] [address] Aug, [facility] [address] [id number] [address] [place] [address], [place] [address] Aug, [facility] [address] [id number] [address] [place] [address], [place] [address] Aug, [facility] [address] [id number] [address] [place] [address], [place] [address] Aug, [facility] [address] [id number] [address] [place] [address], [place] [address] Aug, [facility] [address] [id number] [address] [place] [address], [place] [address] Aug, [facility] [address] [id number] [address] [place] [address], [place] [address] Aug, [facility] [address] [id number] [address] [place] [address], [place] [address] Aug, [facility] [address] [id number] [address] [place] [address], [place] [address] Aug, [facility] [address] [id number] [address] [place] [address], [place] [address] Aug, [facility] [address] [id number] [address] [place] [address], [place] [address] Jul, [facility] [address] [id number] [address] [place] [address], [place] [address] Jul, [facility] [address] [id number] [address] [place] [address], [place] [address] 24 Jul, 2011 [facility] [address] [id number] [address] [place] [address], [place] [address] Jul, [facility] [address] [id number] [address] [place] [address], [place] [address] Jul, [facility] [address] [id number] [address] [place] [address], [place] [address] 19 Jul, 2011 [facility] [address] [id number] [address] [place] [address], [place] [address] Jul, [facility] [address] [id number] [address] [place] [address] Jul, [facility] [address] [id number] [address] [place] [id number] Jul, [facility] [address] [id number] [address] [place] [address] Jul, [facility] [address] [id number] [address] [place] [address] Nov, [facility] [address] [id number] [address] [place] [address] Aug, [facility] [address] [id number] [address] [place] [address] Aug, [facility] [address] [facility] [id number] [address] [place] [id number] Aug, [facility] [address] [id number] [address] [place] [address] Aug, [facility] [address] [id number] [address] [place] [address] Jul, IMMUNIZATIONS No Known Immunizations SOCIAL HISTORY [...] [facility] 01/30/2018-02/10/20 08 Hospitalization History johnson- simón- cutting/SI 05/04/18-
--- OUTSIDE RECORDS SUMMARY | 2020-04-04 02:06 | XMS REPORT ---
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 Active 51472124 Problem Generalized anxiety disorder 300.02 A ctive 87289429 Problem Obsessive-compulsive disorders 300.3 Active 628280893 Problem Catatonic schizophrenia, 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 948567825 Problem Disorganized schizophrenia, 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 69034503 Problem Paranoid schizophrenia F20.0 Active 87992286 Problem Borderline personality disorder F60.3 Active 97447084 Problem Paranoid schizophrenia, unspecified condition 295.30 Active 76981596 Problem Schizoaffective disorder, depressive type F25.1 Active 53406175 Problem Bipolar disorder, unspecified 296.80 Active 86092509 Problem Schizoaffective disorder, unspecified F25.9 Active 80961251 Problem Attention deficit hyperactivity disorder (ADHD), inattentive type, 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 61894664 Problem Posttraumatic stress disorder F43.10 Active 40747329 Problem High risk medication use Z79.899 Activ e [id number] ALLERGIES No Information ENCOUNTERS Encounter Location Date Diagnosis [facility] [address] [facility] [id number] [address] [place] [phone] May, [facility] [address] [facility] [id number] [address] [place] [phone] Mar, Paranoid schizophrenia F20.0 [facility] [address] [facility] [id number] [address] [place] [phone] Mar, Paranoid schizophrenia F20.0 ; Posttraumatic stress disorder F43.10 ; Attention deficit hyperactivity disorder (ADHD), inattentive type, 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 and Borderline personality disorder F60.3 [facility] [address] [facility] [id number] [address] [place] [phone] February, Paranoid schizophrenia F20.0 [facility] [address] [facility] [id number] [address] [place] [phone] Jan, Paranoid schizophrenia F20.0 ; Posttraumatic stress disorder F43.10 ; Attention deficit hyperactivity disorder (ADHD), inattentive type, 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 and Borderline personality disorder F60.3 [facility] [address] [facility] [id number] [address] [place] [id number] Dec, Paranoid schizophrenia F20.0 ; Posttraumatic stress disorder F43.10 ; Attention deficit hyperactivity disorder (ADHD), inattentive type, 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 and Borderline personality disorder F60.3 [facility] [address] [facility] [id number] [address] [place] [id number] Dec, Paranoid schizophrenia F20.0 ; Posttraumatic stress disorder F43.10 ; Attention deficit hyperactivity disorder (ADHD), inattentive type, 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 and Borderline personality disorder F60.3 [facility] [address] [facility] [id number] [address] [place] [phone] Oct, Paranoid schizophrenia F20.0 ; Posttraumatic stress disorder F43.10 ; Attention deficit hyperactivity disorder (ADHD), inattentive type, 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 and Borderline personality disorder F60.3 [facility] [address] [facility] [id number] [address] [place] [id number] Oct, Paranoid schizophrenia F20.0 ; Posttraumatic stress disorder F43.10 ; Attention deficit hyperactivity disorder (ADHD), inattentive type, 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 and Borderline personality disorder F60.3 [facility] [address] [facility] [id number] [address] [place] [id number] Aug, [facility] [address] [facility] [id number] [address] [place] [phone] Aug, Paranoid schizophrenia F20.0 ; Posttraumatic stress disorder F43.10 ; Attention deficit hyperactivity disorder (ADHD), inattentive type, 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 and Borderline personality disorder F60.3 [facility] [address] [facility] [id number] [address] [place] [id number] Jul, Dry skin dermatitis L85.3 [facility] [address] [id number] [address] [place] [phone] Jul, [facility] [address] [facility] [id number] [address] [place] [phone] Jul, Paranoid schizophrenia F20.0 [facility] [address] [id number] [address] [place] [phone] May, Paranoid schizophrenia F20.0 ; Posttraumatic stress disorder F43.10 ; Attention deficit hyperactivity disorder (ADHD), inattentive type, 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 and Borderline personality disorder F60.3 [facility] [address] [facility] [id number] [address] [place] [phone] May, [facility] [address] [facility] [id number] [address] [place] [id number] May, Paranoid schizophrenia F20.0 [facility] [address] [facility] [id number] [address] [place] [id number] May, Paranoid schizophrenia F20.0 ; Posttraumatic stress disorder F43.10 ; Attention deficit hyperactivity disorder (ADHD), inattentive type, 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 and Borderline personality disorder F60.3 [facility] [address] [id number] [address] [place] [phone] Apr, [facility] [address] [facility] [id number] [address] [place] [id number] Apr, Paranoid schizophrenia F20.0 ; Posttraumatic stress disorder F43.10 ; Attention deficit hyperactivity disorder (ADHD), inattentive type, 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 and Borderline personality disorder F60.3 [facility] [address] [facility] [id number] [address] [place] [phone] Apr, [facility] [address] [id number] [address] [place] [id number] Apr, Schizoaffective disorder, de pressive type F25.1 and Borderline personality disorder F60.3 [facility] [address] [id number] [address] [place] [id number] Apr, Paranoid schizophrenia F20.0 ; Posttraumatic stress disorder F43.10 ; Attention deficit hyperactivity disorder (ADHD), inattentive type, 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 and Borderline personality disorder F60.3 [facility] [address] [id number] [address] [place] [phone] Apr, [facility] [address] [id number] [address] [place] [phone] Apr, Paranoid schizophrenia F20.0 ; Posttraumatic stress disorder F43.10 ; Attention deficit hyperactivity disorder (ADHD), inattentive type, 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 and Borderline personality disorder F60.3 [facility] [address] [id number] [address] [place] [phone] Apr, [facility] [address] [id number] [address] [place] [phone] Mar, Paranoid schizophrenia F20.0 [facility] [address] [id number] [address] [place] [id number] Mar, [facility] [address] [id number] [address] [place] [id number] Mar, Paranoid schizophrenia F20.0 ; Posttraumatic stress disorder F43.10 ; Attention deficit hyperactivity disorder (ADHD), inattentive type, 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 and Borderline personality disorder F60.3 [facility] [address] [id number] [address] [place] [id number] February, Paranoid schizophrenia F20.0 [facility] [address] [id number] [address] [place] [phone] February, Paranoid schizophrenia F20.0 ; Posttraumatic stress disorder F43.10 ; Attention deficit hyperactivity disorder (ADHD), inattentive type, 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 and Borderline personality disorder F60.3 [facility] [address] [facility] [id number] [address] [place] [id number] February, Paranoid schizophrenia F20.0 ; Posttraumatic stress disorder F43.10 ; Attention deficit hyperactivity disorder (ADHD), inattentive type, 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 and Borderline personality disorder F60.3 [facility] [address] [facility] [id number] [address] [place] [phone] February, [facility] [address] [facility] [id number] [address] [place] [phone] February, Paranoid schizophrenia F20.0 [facility] [address] [facility] [id number] [address] [place] [id number] February, Paranoid schizophrenia F20.0 [facility] [address] [facility] [id number] [address] [place] [id number] February, Paranoid schizophrenia F20.0 ; Posttraumatic stress disorder F43.10 ; Attention deficit hyperactivity disorder (ADHD), inattentive type, 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 and Borderline personality disorder F60.3 [facility] [address] [facility] [id number] [address] [place] [id number] Jan, Paranoid schizophrenia F20.0 ; Posttraumatic stress disorder F43.10 ; Attention deficit hyperactivity disorder (ADHD), inattentive type, 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 and Borderline personality disorder F60.3 [facility] [address] [facility] [id number] [address] [place] [id number] Jan, Paranoid schizophrenia F20.0 [facility] [address] [facility] [id number] [address] [place] [id number] Jan, Paranoid schizophrenia F20.0 [facility] [address] [facility] [id number] [address] [place] [phone] Jan, Paranoid schizophrenia F20.0 ; Posttraumatic stress disorder F43.10 ; Attention deficit hyperactivity disorder (ADHD), inattentive type, 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 and Borderline personality disorder F60.3 [facility] [address] [id number] [address] [place] [id number] Dec, [facility] [address] [id number] [address] [place] [id number] Nov, Paranoid schizophrenia F20.0 ; Posttraumatic stress disorder F43.10 ; Attention deficit hyperactivity disorder (ADHD), inattentive type, 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 and Borderline personality disorder F60.3 [facility] [address] [id number] [address] [place] [id number] Nov, [facility] [address] [id number] [address] [place] [id number] Oct, Paranoid schizophrenia F20.0 [facility] [address] [id number] [address] [place] [id number] Oct, Paranoid schizophrenia F20.0 ; Posttraumatic stress disorder F43.10 ; Attention deficit hyperactivity disorder (ADHD), inattentive type, 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 ; Borderline personality disorder F60.3 and Other prison (current) drug therapy Z79.899 [facility] [address] [id number] [address] [place] [phone] Oct, [facility] [address] [id number] [address] [place] [id number] Oct, [facility] [address] [id number] [address] [place] [id number] Sep, [facility] [address] [id number] [address] [place] [id number] Sep, Paranoid schizophrenia F20.0 ; Posttraumatic stress disorder F43.10 ; Attention deficit hyperactivity disorder (ADHD), inattentive type, 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 and Borderline personality disorder F60.3 [facility] [address] [id number] [address] [place] [phone] Sep, Paranoid schizophrenia F20.0 [facility] [address] [id number] [address] [place] [phone] Aug, Paranoid schizophrenia F20.0 ; Posttraumatic stress disorder F43.10 ; Attention deficit hyperactivity disorder (ADHD), inattentive type, 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 and Borderline personality disorder F60.3 [facility] [address] [facility] [id number] [address] [place] [phone] Aug, Paranoid schizophrenia F20.0 ; Posttraumatic stress disorder F43.10 ; Attention deficit hyperactivity disorder (ADHD), inattentive type, 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 and Borderline personality disorder F60.3 [facility] [address] [facility] [id number] [address] [place] [id number] Aug, [facility] [address] [facility] [id number] [address] [place] [id number] Jul, Paranoid schizophrenia F20.0 ; Posttraumatic stress disorder F43.10 ; Attention deficit hyperactivity disorder (ADHD), inattentive type, 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 and Borderline personality disorder F60.3 [facility] [address] [place] [id number] [address] [place] [id number] Jul, Paranoid schizophrenia F20.0 [facility] [address] [facility] [id number] [address] [place] [id number] Jul, Paranoid schizophrenia F20.0 ; Posttraumatic stress disorder F43.10 ; Attention deficit hyperactivity disorder (ADHD), inattentive type, 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 and Borderline personality disorder F60.3 [facility] [address] [facility] [id number] [address] [place] [id number] Jun, Paranoid schizophrenia F20.0 ; Posttraumatic stress disorder F43.10 ; Attention deficit hyperactivity disorder (ADHD), inattentive type, 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 and Borderline personality disorder F60.3 [facility] [address] [facility] [id number] [address] [place] [phone] May, Other prison (current) dr gabriel parra Z79.899 [facility] [address] [place] [id number] [address] [place] [id number] May, [facility] [address] [id number] [place] [address] May, [facility] [address] [id number] [address] [place] [id number] May, Attention deficit hyperactiv ity disorder (ADHD), inattentive type, mild F90.0 [facility] [address] [id number] [address] [place] [phone] May, [facility] [address] [facility] [id number] [address] [place] [phone] May, Attention deficit hyperactiv ity disorder (ADHD), inattentive type, mild F90.0 [facility] [address] [id number] [address] [place] [id number] May, Paranoid schizophrenia F20.0 ; Posttraumatic stress disorder F43.10 ; Attention deficit hyperactivity disorder (ADHD), inattentive type, 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 and Other emt intermediate (current) drug therapy Z79.899 [facility] [address] [facility] [id number] [address] [place] [phone] Apr, Paranoid schizophrenia F20.0 [facility] [address] [facility] [id number] [address] [place] [id number] Apr, Paranoid schizophrenia F20.0 ; Posttraumatic stress disorder F43.10 and Attention deficit hyperactivity disorder (ADHD), inattentive type, 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 [facility] [address] [facility] [id number] [address] [place] [id number] February, [facility] [address] [facility] [id number] [address] [place] [id number] February, Paranoid schizophrenia F20.0 ; Posttraumatic stress disorder F43.10 and Attention deficit hyperactivity disorder (ADHD), inattentive type, 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 [facility] [address] [id number] [address] [place] [id number] February, Paranoid schizophrenia F20.0 ; Posttraumatic stress disorder F43.10 and Attention deficit hyperactivity disorder (ADHD), inattentive type, 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 [facility] [address] [id number] [address] [place] [id number] Jan, Paranoid schizophrenia F20.0 ; Posttraumatic stress disorder F43.10 and Attention deficit hyperactivity disorder (ADHD), inattentive type, 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 [facility] [address] [id number] [address] [place] [address] [id number] Dec, Dental examination Z01.20 [facility] [address] [id number] [address] [place] [address] [id number] Nov, Dental examination Z01.20 [facility] [address] [id number] [address] [place] [address] [id number] Nov, Dental examination Z01.20 [facility] [address] [id number] [address] [place] [address] [id number] Nov, Dental caries K02.9 [facility] [address] [id number] [address] [place] [id number] Nov, High risk medication use Z79 .899 [facility] [address] [id number] [address] [place] [id number] Nov, Paranoid schizophrenia F20.0 ; Posttraumatic stress disorder F43.10 ; Attention deficit hyperactivity disorder (ADHD), inattentive type, 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 and Borderline personality disorder in adult F60.3 [facility] [address] [id number] [address] [place] [address] [id number] Oct, Dental caries K02.9 [facility] [address] [id number] [address] [place] [id number] Sep, Paranoid schizophrenia F20.0 ; Posttraumatic stress disorder F43.10 and Attention deficit hyperactivity disorder (ADHD), inattentive type, 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 [facility] [address] [id number] [address] [place] [phone] Aug, Paranoid schizophrenia F20.0 ; Posttraumatic stress disorder F43.10 and Attention deficit hyperactivity disorder (ADHD), inattentive type, 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 [facility] [address] [id number] [address] [place] [phone] Aug, Strep throat J02.0 and Cough R05 [facility] [address] [id number] [address] [place] [id number] Aug, [facility] [address] [id number] [address] [place] [phone] Jul, Paranoid schizophrenia F20.0 ; Posttraumatic stress disorder F43.10 and Attention deficit hyperactivity disorder (ADHD), inattentive type, 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 [facility] [address] [id number] [address] [place] [id number] Jul, [facility] [address] [id number] [address] [place] [phone] Jun, Paranoid schizophrenia F20.0 ; Posttraumatic stress disorder F43.10 and Attention deficit hyperactivity disorder (ADHD), inattentive type, 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 [facility] [address] [id number] [address] [place] [address] [id number] Jun, Dental examination Z01.20 [facility] [address] [id number] [address] [place] [phone] Jun, [facility] [address] [id number] [address] [place] [phone] May, Paranoid schizophrenia F20.0 [facility] [address] [id number] [address] [place] [id number] May, Paranoid schizophrenia F20.0 ; Posttraumatic stress disorder F43.10 and Attention deficit hyperactivity disorder (ADHD), inattentive type, 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 [facility] [address] [id number] [address] [place] [phone] May, [facility] [address] [id number] [address] [place] [phone] May, Paranoid schizophrenia F20.0 [facility] [address] [id number] [address] [place] [id number] May, [facility] [address] [id number] [address] [place] [phone] May, Paranoid schizophrenia F20.0 [facility] [address] [id number] [address] [place] [phone] May, Schizoaffective disorder, un specified F25.9 [facility] [address] [id number] [address] [place] [phone] May, Schizoaffective disorder, un specified F25.9 [facility] [address] [id number] [address] [place] [phone] May, [facility] [address] [id number] [address] [place] [phone] May, Paranoid schizophrenia F20.0 [facility] [address] [id number] [address] [place] [id number] May, Paranoid schizophrenia F20.0 ; Posttraumatic stress disorder F43.10 and Attention deficit hyperactivity disorder (ADHD), inattentive type, 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 [facility] [address] [id number] [address] [place] [phone] Mar, [facility] [address] [id number] [address] [place] [phone] Mar, Paranoid schizophrenia F20.0 ; Posttraumatic stress disorder F43.10 and Attention deficit hyperactivity disorder (ADHD), inattentive type, 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 [facility] [address] [id number] [address] [place] [phone] Mar, Paranoid schizophrenia F20.0 [facility] [address] [id number] [address] [place] [id number] Mar, Paranoid schizophrenia F20.0 ; Attention deficit hyperactivity disorder (ADHD), inattentive type, 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 and Posttraumatic stress disorder F43.10 [facility] [address] [id number] [address] [place] [id number] Mar, [facility] [address] [id number] [address] [place] [id number] Mar, Paranoid schizophrenia F20.0 ; Posttraumatic stress disorder F43.10 and Attention deficit hyperactivity disorder (ADHD), inattentive type, 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 [facility] [address] [id number] [address] [place] [id number] February, [facility] [address] [id number] [address] [place] [phone] February, [facility] [address] [id number] [address] [place] [id number] February, [facility] [address] [id number] [address] [place] [phone] February, [facility] [address] [id number] [address] [place] [phone] Jan, Paranoid schizophrenia F20.0 [facility] [address] [id number] [address] [place] [address] [id number] Jan, Dental examination Z01.20 [facility] [address] [id number] [address] [place] [address] [id number] Jan, Dental caries K02.9 [facility] [address] [id number] [address] [place] [address] [id number] Jan, Dental examination Z01.20 [facility] [address] [id number] [address] [place] [address] [phone] Dec, Encounter for dental examina tion Z01.20 [facility] [address] [id number] [address] [place] [phone] Dec, Paranoid schizophrenia F20.0 [facility] [address] [id number] [address] [place] [address] [id number] Dec, Dental examination Z01.20 [facility] [address] [id number] [address] [place] [phone] Dec, [facility] [address] [id number] [address] [place] [phone] Dec, Paranoid schizophrenia F20.0 ; Posttraumatic stress disorder F43.10 and Attention deficit hyperactivity disorder (ADHD), inattentive type, 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 [facility] [address] [id number] [address] [place] [phone] Nov, Schizoaffective disorder, un specified F25.9 THE [facility] [address] [id number] [address] [place] [id number] Oct, Paranoid schizophrenia F20.0 [facility] [address] [id number] [address] [place] [id number] Oct, [facility] [address] [id number] [address] [place] [id number] Sep, Paranoid schizophrenia F20.0 ; Posttraumatic stress disorder F43.10 and Attention deficit hyperactivity disorder (ADHD), inattentive type, 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 [facility] [address] [id number] [address] [place] [id number] Sep, [facility] [address] [id number] [address] [place] [id number] Sep, Paranoid schizophrenia F20.0 ; Posttraumatic stress disorder F43.10 and Attention deficit hyperactivity disorder (ADHD), inattentive type, 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 [facility] [address] [id number] [address] [place] [id number] Aug, Paranoid schizophrenia F20.0 [facility] [address] [id number] [address] [place] [id number] Aug, [facility] [address] [id number] [address] [place] [id number] Aug, Posttraumatic stress disorde r F43.10 ; Paranoid schizophrenia F20.0 and Attention deficit hyperactivity disorder (ADHD), inattentive type, 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 [facility] [address] [id number] [address] [place] [id number] Jul, Bipolar disorder, unspecifie d F31.9 [facility] [address] [id number] [address] [place] [id number] Jul, [facility] [address] [id number] [address] [place] [id number] Jun, [facility] [address] [id number] [address] [place] [id number] Jun, Schizoaffective disorder, ch ronic 295.72 ; Posttraumatic stress disorder 309.81 and Attention deficit disorder of childhood without mention of hyperactivity 314.00 [facility] [address] [id number] [address] [place] [id number] May, [facility] [address] [facility] [id number] [address] [place] [id number] May, [facility] [address] [facility] [id number] [address] [place] [id number] May, Schizoaffective disorder, ch ronic 295.72 ; Posttraumatic stress disorder 309.81 ; Attention deficit disorder of childhood without mention of hyperactivity 314.00 and Bipolar disorder, unspecified 296.80 [facility] [address] [facility] [id number] [address] [place] [id number] Apr, Schizoaffective disorder, ch ronic 295.72 [facility] [address] [facility] [id number] [address] [place] [id number] Apr, [facility] [address] [id number] [address] [place] [id number] Apr, Schizoaffective disorder, ch ronic 295.72 ; Posttraumatic stress disorder 309.81 and Attention deficit disorder of childhood without mention of hyperactivity 314.00 [facility] [address] [id number] [address] [place] [id number] Mar, Disorganized schizophrenia, 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 [facility] [address] [id number] [address] [place] [id number] Mar, [facility] [address] [id number] [address] [place] [id number] Mar, [facility] [address] [id number] [address] [place] [id number] Mar, [facility] [address] [id number] [address] [place] [id number] Mar, [facility] [address] [id number] [address] [place] [id number] February, Schizoaffective disorder, ch ronic 295.72 [facility] [address] [id number] [address] [place] [id number] February, [facility] [address] [id number] [address] [place] [id number] February, Attention 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 ; Posttraumatic stress disorder 309.81 and Schizoaffective disorder, chronic 295.72 [facility] [address] [id number] [address] [place] [id number] 29 Jan, 2015 [facility] [address] [id number] [address] [place] [id number] 14 Jan, 2015 [facility] [address] [id number] [address] [place] [id number] Jan, [facility] [address] [id number] [address] [place] [id number] Dec, [facility] [address] [id number] [address] [place] [phone] Dec, [facility] [address] [id number] [address] [place] [phone] Dec, [facility] [address] [id number] [address] [place] [id number] Dec, [facility] [address] [id number] [address] [place] [id number] Dec, [facility] [address] [id number] [facility] [place] [id number] Dec, [facility] [address] [id number] [address] [place] [address], [place] [id number] Dec, [facility] [address] [id number] [address] [place] [address], [place] [id number] Dec, [facility] [address] [id number] [address] [place] [address], [place] [id number] Nov, [facility] [address] [id number] [address] [place] [address], [place] [id number] Nov, [facility] [address] [id number] [address] [place] [address], [place] [id number] Nov, [facility] [address] [id number] [address] [place] [address], [place] [id number] Nov, [facility] [address] [id number] [address] [place] [address], [place] [id number] Nov, [facility] [address] [id number] [address] [place] [address], [place] [id number] Nov, [facility] [address] [id number] [address] [place] [address], [place] [id number] Nov, [facility] [address] [id number] [address] [place] [address], [place] [id number] Nov, [facility] [address] [id number] [address] [place] [address], [place] [id number] Nov, [facility] [address] [id number] [address] [place] [address], [place] [id number] Nov, [facility] [address] [id number] [address] [place] [address], [place] [id number] Oct, [facility] [address] [id number] [address] [place] [address], [place] [id number] Oct, [facility] [address] [id number] [address] [place] [address], [place] [id number] 28 Oct, 2014 [facility] [address] [id number] [address] [place] [address], [place] [id number] Oct, [facility] [address] [id number] [address] [place] [address], [place] [id number] 15 Oct, 2014 [facility] [address] [id number] [address] [place] [address], [place] [id number] Oct, [facility] [address] [id number] [address] [place] [address], [place] [id number] Oct, [facility] [address] [id number] [address] [place] [address], [place] [id number] 17 Sep, 2014 [facility] [address] [id number] [address] [place] [address], [place] [id number] 17 Sep, 2014 [facility] [address] [id number] [address] [place] [address], [place] [id number] Sep, [facility] [address] [id number] [address] [place] [address], [place] [id number] Sep, [facility] [address] [id number] [address] [place] [address], [place] [id number] Aug, [facility] [address] [id number] [address] [place] [address], [place] [id number] Aug, [facility] [address] [id number] [address] [place] [address], [place] [id number] 14 Aug, 2014 [facility] [address] [id number] [address] [place] [address], [place] [id number] Aug, [facility] [address] [id number] [address] [place] [address], [place] [id number] Aug, [facility] [address] [id number] [address] [place] [address], [place] [id number] Aug, [facility] [address] [id number] [address] [place] [address], [place] [id number] Jul, [facility] [address] [id number] [address] [place] [address], [place] [id number] 29 Jul, 2014 [facility] [address] [id number] [address] [place] [address], [place] [id number] 24 Jul, 2014 [facility] [address] [id number] [address] [place] [address], [place] [id number] 24 Jul, 2014 [facility] [address] [id number] [address] [place] [address], [place] [id number] 15 Jul, 2014 [facility] [address] [id number] [address] [place] [address], [place] [id number] 15 Jul, 2014 [facility] [address] [id number] [address] [place] [address], [place] [id number] 27 Jun, 2013 [facility] [address] [id number] [address] [place] [address], [place] [id number] 27 Jun, 2013 [facility] [address] [id number] [address] [place] [address], [place] [id number] 26 Jun, 2013 [facility] [address] [id number] [address] [place] [address], [place] [id number] 26 Jun, 2013 [facility] [address] [id number] [address] [place] [address], [place] [id number] 26 Jun, 2013 [facility] [address] [id number] [address] [place] [address], [place] [id number] 26 Sep, 2013 [facility] [address] [id number] [address] [place] [address], [place] [id number] 16 Sep, 2013 [facility] [address] [id number] [address] [place] [address], [place] [id number] 16 Sep, 2013 [facility] [address] [id number] [address] [place] [address], [place] [id number] 16 Sep, 2013 [facility] [address] [id number] [address] [place] [address], [place] [id number] 16 Sep, 2013 [facility] [address] [id number] [address] [place] [address], [place] [id number] Jun, [facility] [address] [id number] [address] [place] [address], [place] [id number] May, [facility] [address] [id number] [address] [place] [address], [place] [id number] May, [facility] [address] [id number] [address] [place] [address], [place] [id number] May, [facility] [address] [id number] [address] [place] [address], [place] [id number] May, [facility] [address] [id number] [address] [place] [address], [place] [id number] May, [facility] [address] [id number] [address] [place] [address], [place] [id number] May, [facility] [address] [id number] [address] [place] [address], [place] [id number] May, [facility] [address] [id number] [address] [place] [address], [place] [id number] May, [facility] [address] [id number] [address] [place] [address], [place] [id number] May, [facility] [address] [id number] [address] [place] [address], [place] [id number] May, [facility] [address] [id number] [address] [place] [address], [place] [id number] Apr, [facility] [address] [id number] [address] [place] [address], [place] [id number] Apr, [facility] [address] [id number] [address] [place] [address], [place] [id number] Apr, [facility] [address] [id number] [address] [place] [address], [place] [id number] Apr, [facility] [address] [id number] [address] [place] [address], [place] [id number] Apr, [facility] [address] [id number] [facility] [place] [id number] 24 Apr, 2014 [facility] [address] [id number] [facility] [place] [address] Apr, [facility] [address] [id number] [facility] [place] [id number] Apr, [facility] [address] [id number] [address] [place] [address], [place] [id number] Apr, [facility] [address] [id number] [address] [place] [address], [place] [id number] Apr, [facility] [address] [id number] [address] [place] [address], [place] [id number] Mar, [facility] [address] [id number] [address] [place] [address], [place] [id number] Mar, [facility] [address] [id number] [address] [place] [address], [place] [id number] Mar, [facility] [address] [id number] [address] [place] [address], [place] [id number] 24 Mar, 2014 [facility] [address] [id number] [address] [place] [address], [place] [id number] Mar, [facility] [address] [id number] [address] [place] [address], [place] [id number] 18 Mar, 2014 [facility] [address] [id number] [address] [place] [address], [place] [id number] 18 Mar, 2014 [facility] [address] [id number] [address] [place] [address], [place] [id number] 16 Mar, 2014 [facility] [address] [id number] [address] [place] [address], [place] [id number] 16 Mar, 2014 [facility] [address] [id number] [address] [place] [address], [place] [id number] 13 Mar, 2014 [facility] [address] [id number] [address] [place] [address], [place] [id number] Mar, [facility] [address] [id number] [facility] [place] [id number] Mar, [facility] [address] [id number] [address] [place] [address], [place] [id number] Mar, [facility] [address] [id number] [address] [place] [address], [place] [id number] Mar, [facility] [address] [id number] [address] [place] [address], [place] [id number] Mar, [facility] [address] [id number] [address] [place] [address], [place] [id number] Mar, [facility] [address] [id number] [address] [place] [address], [place] [id number] Mar, [facility] [address] [id number] [address] [place] [address], [place] [id number] Mar, [facility] [address] [id number] [address] [place] [address], [place] [id number] Mar, [facility] [address] [id number] [address] [place] [address], [place] [id number] Mar, [facility] [address] [id number] [address] [place] [address], [place] [id number] February, [facility] [address] [id number] [address] [place] [address], [place] [id number] February, [facility] [address] [id number] [address] [place] [address], [place] [id number] February, [facility] [address] [id number] [address] [place] [address], [place] [id number] February, [facility] [address] [id number] [address] [place] [address], [place] [id number] February, [facility] [address] [id number] [address] [place] [address], [place] [id number] February, [facility] [address] [id number] [address] [place] [address], [place] [id number] February, [facility] [address] [id number] [address] [place] [address], [place] [id number] February, [facility] [address] [id number] [address] [place] [address], [place] [id number] February, [facility] [address] [id number] [address] [place] [address], [place] [id number] February, [facility] [address] [id number] [address] [place] [address], [place] [address] February, [facility] [address] [id number] [address] [place] [address], [place] [id number] February, [facility] [address] [id number] [address] [place] [address], [place] [id number] February, [facility] [address] [id number] [address] [place] [address], [place] [id number] February, [facility] [address] [id number] [address] [place] [address], [place] [id number] February, [facility] [address] [id number] [address] [place] [address], [place] [id number] February, [facility] [address] [id number] [address] [place] [address], [place] [id number] February, [facility] [address] [id number] [address] [place] [address], [place] [id number] February, [facility] [address] [id number] [address] [place] [address], [place] [id number] February, [facility] [address] [id number] [address] [place] [address], [place] [id number] February, [facility] [address] [id number] [address] [place] [address], [place] [id number] February, [facility] [address] [id number] [address] [place] [address], [place] [id number] Jan, [facility] [address] [id number] [address] [place] [address], [place] [id number] 30 Jan, 2014 [facility] [address] [id number] [address] [place] [address], [place] [id number] 18 Jan, 2014 [facility] [address] [id number] [address] [place] [address], [place] [id number] 18 Jan, 2014 [facility] [address] [id number] [address] [place] [address], [place] [id number] Jan, [facility] [address] [id number] [address] [place] [address], [place] [id number] 18 Jan, 2014 [facility] [address] [id number] [address] [place] [address], [place] [id number] Jan, [facility] [address] [id number] [address] [place] [address], [place] [id number] Jan, [facility] [address] [id number] [address] [place] [address], [place] [id number] 21 Dec, 2013 [facility] [address] [id number] [address] [place] [address], [place] [id number] 20 Dec, 2013 [facility] [address] [id number] [address] [place] [address], [place] [id number] 20 Dec, 2013 [facility] [address] [id number] [address] [place] [address], [place] [id number] 19 Dec, 2013 [facility] [address] [id number] [address] [place] [address], [place] [id number] 19 Dec, 2013 [facility] [address] [id number] [address] [place] [address], [place] [id number] 15 Dec, 2013 [facility] [address] [id number] [address] [place] [address], [place] [id number] 15 Dec, 2013 [facility] [address] [id number] [address] [place] [address], [place] [id number] 11 Dec, 2013 [facility] [address] [id number] [address] [place] [address], [place] [id number] Dec, [facility] [address] [id number] [address] [place] [address], [place] [id number] Dec, [facility] [address] [id number] [address] [place] [address], [place] [id number] Nov, [facility] [address] [id number] [address] [place] [address], [place] [id number] Nov, [facility] [address] [id number] [address] [place] [address], [place] [id number] Nov, [facility] [address] [id number] [address] [place] [address], [place] [id number] Nov, [facility] [address] [id number] [address] [place] [address], [place] [id number] Nov, [facility] [address] [id number] [address] [place] [address], [place] [id number] Oct, [facility] [address] [id number] [address] [place] [address], [place] [id number] Oct, [facility] [address] [id number] [address] [place] [address], [place] [id number] Oct, [facility] [address] [id number] [address] [place] [address], [place] [id number] Sep, [facility] [address] [id number] [address] [place] [address], [place] [id number] Sep, [facility] [address] [id number] [address] [place] [address], [place] [id number] Sep, [facility] [address] [id number] [address] [place] [address], [place] [id number] Sep, [facility] [address] [id number] [address] [place] [address], [place] [id number] Aug, [facility] [address] [id number] [address] [place] [address], [place] [id number] Aug, [facility] [address] [id number] [address] [place] [address], [place] [id number] Jul, [facility] [address] [id number] [address] [place] [address], [place] [id number] Jul, [facility] [address] [id number] [address] [place] [address], [place] [id number] Jul, [facility] [address] [id number] [address] [place] [address], [place] [id number] Jul, [facility] [address] [id number] [address] [place] [address], [place] [id number] Jul, [facility] [address] [id number] [address] [place] [address], [place] [id number] Jun, [facility] [address] [id number] [address] [place] [address], [place] [id number] 25 Jun, 2013 [facility] [address] [id number] [address] [place] [address], [place] [id number] 19 Jun, 2013 [facility] [address] [id number] [address] [place] [address], [place] [id number] 18 Jun, 2013 [facility] [address] [id number] [address] [place] [address], [place] [id number] 16 Jun, 2013 [facility] [address] [id number] [address] [place] [address], [place] [id number] 12 Jun, 2013 [facility] [address] [id number] [address] [place] [address], [place] [id number] 11 Jun, 2013 [facility] [address] [id number] [address] [place] [address], [place] [id number] 30 May, 2013 [facility] [address] [id number] [address] [place] [address], [place] [id number] May, [facility] [address] [id number] [address] [place] [address], [place] [id number] Apr, [facility] [address] [id number] [address] [place] [address], [place] [id number] Apr, [facility] [address] [id number] [address] [place] [address], [place] [id number] Apr, [facility] [address] [id number] [address] [place] [address], [place] [id number] Mar, [facility] [address] [id number] [address] [place] [address], [place] [id number] Mar, [facility] [address] [id number] [address] [place] [address], [place] [id number] February, [facility] [address] [id number] [address] [place] [address], [place] [id number] February, [facility] [address] [id number] [address] [place] [address], [place] [id number] February, [facility] [address] [id number] [address] [place] [address], [place] [id number] February, [facility] [address] [id number] [address] [place] [address], [place] [id number] Jan, [facility] [address] [id number] [address] [place] [address], [place] [id number] Jan, [facility] [address] [id number] [address] [place] [address], [place] [id number] Jan, [facility] [address] [id number] [address] [place] [address], [place] [id number] Dec, [facility] [address] [id number] [address] [place] [address], [place] [id number] Dec, [facility] [address] [address] [id number] [address] [place] [address], [place] [id number] Dec, [facility] [address] [id number] [address] [place] [address], [place] [id number] Dec, [facility] [address] [id number] [address] [place] [address], [place] [id number] Nov, [facility] [address] [id number] [address] [place] [address], [place] [id number] 13 Nov, 2012 [facility] [address] [id number] [address] [place] [address], [place] [id number] Oct, [facility] [address] [id number] [address] [place] [address], [place] [id number] Oct, [facility] [address] [id number] [address] [place] [address], [place] [id number] Oct, [facility] [address] [id number] [address] [place] [address], [place] [id number] Oct, [facility] [address] [id number] [address] [place] [address], [place] [id number] Aug, [facility] [address] [id number] [address] [place] [address], [place] [id number] Aug, [facility] [address] [id number] [address] [place] [address], [place] [id number] Jun, [facility] [address] [id number] [address] [place] [address], [place] [id number] May, [facility] [address] [id number] [address] [place] [address], [place] [id number] May, [facility] [address] [id number] [address] [place] [address], [place] [id number] Apr, [facility] [address] [id number] [address] [place] [address], [place] [id number] Apr, [facility] [address] [id number] [address] [place] [address], [place] [id number] Apr, [facility] [address] [id number] [address] [place] [address], [place] [id number] Mar, [facility] [address] [id number] [address] [place] [address], [place] [id number] Mar, [facility] [address] [id number] [address] [place] [address], [place] [id number] Mar, [facility] [address] [id number] [address] [place] [address], [place] [id number] Mar, [facility] [address] [id number] [address] [place] [address], [place] [id number] Mar, [facility] [address] [id number] [address] [place] [address], [place] [id number] February, [facility] [address] [id number] [address] [place] [address], [place] [id number] February, [facility] [address] [id number] [address] [place] [address], [place] [id number] February, [facility] [address] [id number] [address] [place] [address], [place] [id number] February, [facility] [address] [id number] [address] [place] [address], [place] [id number] February, [facility] [address] [id number] [address] [place] [address], [place] [id number] February, [facility] [address] [id number] [address] [place] [address], [place] [id number] February, [facility] [address] [id number] [address] [place] [address], [place] [id number] Jan, [facility] [address] [id number] [address] [place] [address], [place] [id number] 18 Jan, 2012 [facility] [address] [id number] [address] [place] [address], [place] [id number] 17 Jan, 2012 [facility] [address] [id number] [address] [place] [address], [place] [id number] 13 Jan, 2012 [facility] [address] [id number] [address] [place] [address], [place] [id number] 10 Jan, 2012 [facility] [address] [id number] [address] [place] [address], [place] [id number] 04 Jan, 2012 [facility] [address] [id number] [address] [place] [address], [place] [id number] 30 Dec, 2011 [facility] [address] [id number] [address] [place] [address], [place] [id number] 24 Dec, 2011 [facility] [address] [id number] [address] [place] [address], [place] [id number] 20 Dec, 2011 [facility] [address] [id number] [address] [place] [address], [place] [id number] 13 Dec, 2011 [facility] [address] [id number] [address] [place] [address], [place] [id number] 06 Dec, 2011 [facility] [address] [id number] [address] [place] [address], [place] [id number] 28 Nov, 2011 [facility] [address] [id number] [address] [place] [address], [place] [id number] 27 Nov, 2011 [facility] [address] [id number] [address] [place] [address], [place] [id number] 25 Nov, 2011 [facility] [address] [id number] [address] [place] [address], [place] [id number] 14 Nov, 2011 [facility] [address] [id number] [address] [place] [address], [place] [id number] Nov, [facility] [address] [id number] [address] [place] [address], [place] [id number] Nov, [facility] [address] [id number] [address] [place] [address], [place] [id number] Oct, [facility] [address] [id number] [address] [place] [address], [place] [id number] Oct, [facility] [address] [id number] [address] [place] [address], [place] [id number] Oct, [facility] [address] [id number] [address] [place] [address], [place] [id number] Oct, [facility] [address] [id number] [address] [place] [address], [place] [id number] Oct, [facility] [address] [id number] [address] [place] [address], [place] [id number] Sep, [facility] [address] [id number] [address] [place] [address], [place] [id number] Sep, [facility] [address] [id number] [address] [place] [address], [place] [id number] Sep, [facility] [address] [id number] [address] [place] [address], [place] [id number] 14 Sep, 2011 [facility] [address] [id number] [address] [place] [address], [place] [id number] 14 Sep, 2011 [facility] [address] [id number] [address] [place] [address], [place] [id number] Sep, [facility] [address] [id number] [address] [place] [address], [place] [id number] Sep, [facility] [address] [id number] [address] [place] [address], [place] [id number] Sep, [facility] [address] [id number] [address] [place] [address], [place] [id number] Sep, [facility] [address] [id number] [address] [place] [address], [place] [id number] Aug, [facility] [address] [id number] [address] [place] [address], [place] [id number] Aug, [facility] [address] [id number] [address] [place] [id number] Aug, [facility] [address] [id number] [address] [place] [address], [place] [id number] Aug, [facility] [address] [id number] [address] [place] [address], [place] [id number] Aug, [facility] [address] [id number] [address] [place] [address], [place] [id number] Aug, [facility] [address] [id number] [address] [place] [id number] Aug, [facility] [address] [id number] [address] [place] [address], [place] [id number] 16 Aug, 2011 [facility] [address] [id number] [address] [place] [id number] Aug, [facility] [address] [id number] [address] [place] [address], [place] [id number] Aug, [facility] [address] [id number] [address] [place] [address], [place] [id number] Aug, [facility] [address] [id number] [address] [place] [address], [place] [id number] Aug, [facility] [address] [id number] [address] [place] [address], [place] [id number] Jul, [facility] [address] [id number] [address] [place] [id number] Jul, [facility] [address] [id number] [address] [place] [address], [place] [id number] 24 Jul, 2011 [facility] [address] [id number] [address] [place] [id number] Jul, [facility] [address] [id number] [address] [place] [id number] Jul, [facility] [address] [id number] [address] [place] [id number] Jul, [facility] [address] [id number] [address] [place] [id number] 18 Jul, 2011 [facility] [address] [id number] [address] [place] [id number] 11 Jul, 2011 [facility] [address] [id number] [address] [place] [id number] Jul, [facility] [address] [id number] [address] [place] [id number] 10 Jul, 2011 [facility] [address] [id number] [address] [place] [id number] Nov, [facility] [address] [facility] [id number] [address] [place] [id number] Aug, [facility] [address] [facility] [id number] [address] [place] [id number] Aug, [facility] [address] [facility] [id number] [address] [place] [id number] Aug, [facility] [address] [facility] [id number] [address] [place] [id number] Aug, [facility] [address] [facility] [id number] [address] [place] [id number] Jul, IMMUNIZATIONS No Known Immunizations SOCIAL HISTORY [...] attempt by hanging 2015 Hospitalization History [facility] 01/30/2018-02/10/20 08 Hospitalization History [facility] 05/04/18-
--- OUTSIDE RECORDS SUMMARY | 2020-04-04 02:06 | XMS REPORT ---
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 Active 36190429 Problem Generalized anxiety disorder 300.02 A ctive 48849505 Problem Obsessive-compulsive disorders 300.3 Active 352019500 Problem Catatonic schizophrenia, 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 778478129 Problem Disorganized schizophrenia, 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 97369694 Problem Paranoid schizophrenia F20.0 Active 59463485 Problem Borderline personality disorder F60.3 Active 73668473 Problem Paranoid schizophrenia, unspecified condition 295.30 Active 04440234 Problem Schizoaffective disorder, depressive type F25.1 Active 22987927 Problem Bipolar disorder, unspecified 296.80 Active 91709968 Problem Schizoaffective disorder, unspecified F25.9 Active 09540240 Problem Attention deficit hyperactivity disorder (ADHD), inattentive type, 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 70056569 Problem Posttraumatic stress disorder F43.10 Active 14865024 Problem High risk medication use Z79.899 Activ e [id number] ALLERGIES No Information ENCOUNTERS Encounter Location Date Diagnosis [facility] [address] [facility] [id number] [address] [place] [phone] May, [facility] [address] [facility] [id number] [address] [place] [phone] Mar, Paranoid schizophrenia F20.0 [facility] [address] [facility] [id number] [address] [place] [phone] Mar, Paranoid schizophrenia F20.0 ; Posttraumatic stress disorder F43.10 ; Attention deficit hyperactivity disorder (ADHD), inattentive type, 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 and Borderline personality disorder F60.3 [facility] [address] [facility] [id number] [address] [place] [phone] February, Paranoid schizophrenia F20.0 [facility] [address] [facility] [id number] [address] [place] [phone] Jan, Paranoid schizophrenia F20.0 ; Posttraumatic stress disorder F43.10 ; Attention deficit hyperactivity disorder (ADHD), inattentive type, 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 and Borderline personality disorder F60.3 [facility] [address] [facility] [id number] [address] [place] [phone] Dec, Paranoid schizophrenia F20.0 ; Posttraumatic stress disorder F43.10 ; Attention deficit hyperactivity disorder (ADHD), inattentive type, 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 and Borderline personality disorder F60.3 [facility] [address] [facility] [id number] [address] [place] [phone] Dec, Paranoid schizophrenia F20.0 ; Posttraumatic stress disorder F43.10 ; Attention deficit hyperactivity disorder (ADHD), inattentive type, 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 and Borderline personality disorder F60.3 [facility] [address] [facility] [id number] [address] [place] [phone] Oct, Paranoid schizophrenia F20.0 ; Posttraumatic stress disorder F43.10 ; Attention deficit hyperactivity disorder (ADHD), inattentive type, 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 and Borderline personality disorder F60.3 [facility] [address] [facility] [id number] [address] [place] [phone] Oct, Paranoid schizophrenia F20.0 ; Posttraumatic stress disorder F43.10 ; Attention deficit hyperactivity disorder (ADHD), inattentive type, 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 [address] [facility] [id number] [address] [place] [id number] Jul, Dry skin dermatitis L85.3 [facility] [address] [id number] [address] [place] [id number] Jul, [facility] [address] [facility] [id number] [address] [place] [phone] Jul, Paranoid schizophrenia F20.0 [facility] [address] [id number] [address] [place] [phone] May, Paranoid schizophrenia F20.0 ; Posttraumatic stress disorder F43.10 ; Attention deficit hyperactivity disorder (ADHD), inattentive type, 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 and Borderline personality disorder F60.3 [facility] [address] [facility] [id number] [address] [place] [phone] May, [facility] [address] [facility] [id number] [address] [place] [phone] May, Paranoid schizophrenia F20.0 [facility] [address] [facility] [id number] [address] [place] [phone] May, Paranoid schizophrenia F20.0 ; Posttraumatic stress disorder F43.10 ; Attention deficit hyperactivity disorder (ADHD), inattentive type, 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 and Borderline personality disorder F60.3 [facility] [address] [id number] [address] [place] [phone] Apr, [facility] [address] [facility] [id number] [address] [place] [phone] Apr, Paranoid schizophrenia F20.0 ; Posttraumatic stress disorder F43.10 ; Attention deficit hyperactivity disorder (ADHD), inattentive type, 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 and Borderline personality disorder F60.3 [facility] [address] [facility] [id number] [address] [place] [phone] Apr, [facility] [address] [id number] [address] [place] [phone] Apr, Schizoaffective disorder, de pressive type F25.1 and Borderline personality disorder F60.3 [facility] [address] [id number] [address] [place] [phone] Apr, Paranoid schizophrenia F20.0 ; Posttraumatic stress disorder F43.10 ; Attention deficit hyperactivity disorder (ADHD), inattentive type, 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 and Borderline personality disorder F60.3 [facility] [address] [id number] [address] [place] [phone] Apr, [facility] [address] [id number] [address] [place] [phone] Apr, Paranoid schizophrenia F20.0 ; Posttraumatic stress disorder F43.10 ; Attention deficit hyperactivity disorder (ADHD), inattentive type, 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 and Borderline personality disorder F60.3 [facility] [address] [id number] [address] [place] [phone] Apr, [facility] [address] [id number] [address] [place] [phone] Mar, Paranoid schizophrenia F20.0 [facility] [address] [id number] [address] [place] [phone] Mar, [facility] [address] [id number] [address] [place] [phone] Mar, Paranoid schizophrenia F20.0 ; Posttraumatic stress disorder F43.10 ; Attention deficit hyperactivity disorder (ADHD), inattentive type, 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 and Borderline personality disorder F60.3 [facility] [address] [id number] [address] [place] [phone] February, Paranoid schizophrenia F20.0 [facility] [address] [id number] [address] [place] [id number] February, Paranoid schizophrenia F20.0 ; Posttraumatic stress disorder F43.10 ; Attention deficit hyperactivity disorder (ADHD), inattentive type, 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 and Borderline personality disorder F60.3 [facility] [address] [facility] [id number] [address] [place] [phone] February, Paranoid schizophrenia F20.0 ; Posttraumatic stress disorder F43.10 ; Attention deficit hyperactivity disorder (ADHD), inattentive type, 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 and Borderline personality disorder F60.3 [facility] [address] [facility] [id number] [address] [place] [phone] February, [facility] [address] [facility] [id number] [address] [place] [phone] February, Paranoid schizophrenia F20.0 [facility] [address] [facility] [id number] [address] [place] [phone] February, Paranoid schizophrenia F20.0 [facility] [address] [facility] [id number] [address] [place] [phone] February, Paranoid schizophrenia F20.0 ; Posttraumatic stress disorder F43.10 ; Attention deficit hyperactivity disorder (ADHD), inattentive type, 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 and Borderline personality disorder F60.3 [facility] [address] [facility] [id number] [address] [place] [phone] Jan, Paranoid schizophrenia F20.0 ; Posttraumatic stress disorder F43.10 ; Attention deficit hyperactivity disorder (ADHD), inattentive type, 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 and Borderline personality disorder F60.3 [facility] [address] [facility] [id number] [address] [place] [phone] Jan, Paranoid schizophrenia F20.0 [facility] [address] [facility] [id number] [address] [place] [phone] Jan, Paranoid schizophrenia F20.0 [facility] [address] [facility] [id number] [address] [place] [phone] Jan, Paranoid schizophrenia F20.0 ; Posttraumatic stress disorder F43.10 ; Attention deficit hyperactivity disorder (ADHD), inattentive type, 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 and Borderline personality disorder F60.3 [facility] [address] [id number] [address] [place] [phone] Dec, [facility] [address] [id number] [address] [place] [phone] Nov, Paranoid schizophrenia F20.0 ; Posttraumatic stress disorder F43.10 ; Attention deficit hyperactivity disorder (ADHD), inattentive type, 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 and Borderline personality disorder F60.3 [facility] [address] [id number] [address] [place] [phone] Nov, [facility] [address] [id number] [address] [place] [phone] Oct, Paranoid schizophrenia F20.0 [facility] [address] [id number] [address] [place] [phone] Oct, Paranoid schizophrenia F20.0 ; Posttraumatic stress disorder F43.10 ; Attention deficit hyperactivity disorder (ADHD), inattentive type, 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 ; Borderline personality disorder F60.3 and Other assisted (current) drug therapy Z79.899 [facility] [address] [id number] [address] [place] [phone] Oct, [facility] [address] [id number] [address] [place] [phone] Oct, [facility] [address] [id number] [address] [place] [phone] Sep, [facility] [address] [id number] [address] [place] [id number] Sep, Paranoid schizophrenia F20.0 ; Posttraumatic stress disorder F43.10 ; Attention deficit hyperactivity disorder (ADHD), inattentive type, 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 and Borderline personality disorder F60.3 [facility] [address] [id number] [address] [place] [phone] Sep, Paranoid schizophrenia F20.0 [facility] [address] [id number] [address] [place] [phone] Aug, Paranoid schizophrenia F20.0 ; Posttraumatic stress disorder F43.10 ; Attention deficit hyperactivity disorder (ADHD), inattentive type, 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 and Borderline personality disorder F60.3 [facility] [address] [facility] [id number] [address] [place] [phone] Aug, Paranoid schizophrenia F20.0 ; Posttraumatic stress disorder F43.10 ; Attention deficit hyperactivity disorder (ADHD), inattentive type, 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 and Borderline personality disorder F60.3 [facility] [address] [facility] [id number] [address] [place] [phone] Aug, [facility] [address] [facility] [id number] [address] [place] [phone] Jul, Paranoid schizophrenia F20.0 ; Posttraumatic stress disorder F43.10 ; Attention deficit hyperactivity disorder (ADHD), inattentive type, 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 and Borderline personality disorder F60.3 [facility] [address] [place] [id number] [address] [place] [id number] Jul, Paranoid schizophrenia F20.0 [facility] [address] [facility] [id number] [address] [place] [phone] Jul, Paranoid schizophrenia F20.0 ; Posttraumatic stress disorder F43.10 ; Attention deficit hyperactivity disorder (ADHD), inattentive type, 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 and Borderline personality disorder F60.3 [facility] [address] [facility] [id number] [address] [place] [id number] Jun, Paranoid schizophrenia F20.0 ; Posttraumatic stress disorder F43.10 ; Attention deficit hyperactivity disorder (ADHD), inattentive type, 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 and Borderline personality disorder F60.3 [facility] [address] [facility] [id number] [address] [place] [phone] May, Other assisted (current) dr gabriel parra Z79.899 [facility] [address] [place] [id number] [address] [place] [phone] May, [facility] [address] [id number] [address] [address] May, [facility] [address] [id number] [address] [place] [phone] May, Attention deficit hyperactiv ity disorder (ADHD), inattentive type, mild F90.0 [facility] [address] [id number] [address] [place] [phone] May, [facility] [address] [facility] [id number] [address] [place] [phone] May, Attention deficit hyperactiv ity disorder (ADHD), inattentive type, mild F90.0 [facility] [address] [id number] [address] [place] [phone] May, Paranoid schizophrenia F20.0 ; Posttraumatic stress disorder F43.10 ; Attention deficit hyperactivity disorder (ADHD), inattentive type, 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 and Other buttermaker continuous churn (current) drug therapy Z79.899 [facility] [address] [facility] [id number] [address] [place] [phone] Apr, Paranoid schizophrenia F20.0 [facility] [address] [facility] [id number] [address] [place] [phone] Apr, Paranoid schizophrenia F20.0 ; Posttraumatic stress disorder F43.10 and Attention deficit hyperactivity disorder (ADHD), inattentive type, 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 [facility] [address] [facility] [id number] [address] [place] [phone] February, [facility] [address] [facility] [id number] [address] [place] [phone] February, Paranoid schizophrenia F20.0 ; Posttraumatic stress disorder F43.10 and Attention deficit hyperactivity disorder (ADHD), inattentive type, 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 [facility] [address] [id number] [address] [place] [id number] February, Paranoid schizophrenia F20.0 ; Posttraumatic stress disorder F43.10 and Attention deficit hyperactivity disorder (ADHD), inattentive type, 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 [facility] [address] [id number] [address] [place] [phone] Jan, Paranoid schizophrenia F20.0 ; Posttraumatic stress disorder F43.10 and Attention deficit hyperactivity disorder (ADHD), inattentive type, 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 [facility] [address] [id number] [address] [place] [address] [id number] Dec, Dental examination Z01.20 [facility] [address] [id number] [address] [place] [address] [id number] Nov, Dental examination Z01.20 [facility] [address] [id number] [address] [place] [address] [id number] Nov, Dental examination Z01.20 [facility] [address] [id number] [address] [place] [address] [id number] Nov, Dental caries K02.9 [facility] [address] [id number] [address] [place] [phone] Nov, High risk medication use Z79 .899 [facility] [address] [id number] [address] [place] [phone] Nov, Paranoid schizophrenia F20.0 ; Posttraumatic stress disorder F43.10 ; Attention deficit hyperactivity disorder (ADHD), inattentive type, 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 and Borderline personality disorder in adult F60.3 [facility] [address] [id number] [address] [place] [address] [id number] Oct, Dental caries K02.9 [facility] [address] [id number] [address] [place] [phone] Sep, Paranoid schizophrenia F20.0 ; Posttraumatic stress disorder F43.10 and Attention deficit hyperactivity disorder (ADHD), inattentive type, 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 [facility] [address] [id number] [address] [place] [phone] Aug, Paranoid schizophrenia F20.0 ; Posttraumatic stress disorder F43.10 and Attention deficit hyperactivity disorder (ADHD), inattentive type, 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 [facility] [address] [id number] [address] [place] [phone] Aug, Strep throat J02.0 and Cough R05 [facility] [address] [id number] [address] [place] [phone] Aug, [facility] [address] [id number] [address] [place] [id number] Jul, Paranoid schizophrenia F20.0 ; Posttraumatic stress disorder F43.10 and Attention deficit hyperactivity disorder (ADHD), inattentive type, 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 [facility] [address] [id number] [address] [place] [phone] Jul, [facility] [address] [id number] [address] [place] [phone] Jun, Paranoid schizophrenia F20.0 ; Posttraumatic stress disorder F43.10 and Attention deficit hyperactivity disorder (ADHD), inattentive type, 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 [facility] [address] [id number] [address] [place] [address] [id number] Jun, Dental examination Z01.20 [facility] [address] [id number] [address] [place] [phone] Jun, [facility] [address] [id number] [address] [place] [phone] May, Paranoid schizophrenia F20.0 [facility] [address] [id number] [address] [place] [phone] May, Paranoid schizophrenia F20.0 ; Posttraumatic stress disorder F43.10 and Attention deficit hyperactivity disorder (ADHD), inattentive type, 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 [facility] [address] [id number] [address] [place] [phone] May, [facility] [address] [id number] [address] [place] [phone] May, Paranoid schizophrenia F20.0 [facility] [address] [id number] [address] [place] [phone] May, [facility] [address] [id number] [address] [place] [phone] May, Paranoid schizophrenia F20.0 [facility] [address] [id number] [address] [place] [phone] May, Schizoaffective disorder, un specified F25.9 [facility] [address] [id number] [address] [place] [id number] May, Schizoaffective disorder, un specified F25.9 [facility] [address] [id number] [address] [place] [phone] May, [facility] [address] [id number] [address] [place] [phone] May, Paranoid schizophrenia F20.0 [facility] [address] [id number] [address] [place] [phone] May, Paranoid schizophrenia F20.0 ; Posttraumatic stress disorder F43.10 and Attention deficit hyperactivity disorder (ADHD), inattentive type, 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 [facility] [address] [id number] [address] [place] [phone] Mar, [facility] [address] [id number] [address] [place] [id number] Mar, Paranoid schizophrenia F20.0 ; Posttraumatic stress disorder F43.10 and Attention deficit hyperactivity disorder (ADHD), inattentive type, 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 [facility] [address] [id number] [address] [place] [phone] Mar, Paranoid schizophrenia F20.0 [facility] [address] [id number] [address] [place] [phone] Mar, Paranoid schizophrenia F20.0 ; Attention deficit hyperactivity disorder (ADHD), inattentive type, 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 and Posttraumatic stress disorder F43.10 [facility] [address] [id number] [address] [place] [id number] Mar, [facility] [address] [id number] [address] [place] [phone] Mar, Paranoid schizophrenia F20.0 ; Posttraumatic stress disorder F43.10 and Attention deficit hyperactivity disorder (ADHD), inattentive type, 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 [facility] [address] [id number] [address] [place] [id number] February, [facility] [address] [id number] [address] [place] [id number] February, [facility] [address] [id number] [address] [place] [phone] February, [facility] [address] [id number] [address] [place] [phone] February, [facility] [address] [id number] [address] [place] [id number] Jan, Paranoid schizophrenia F20.0 [facility] [address] [id number] [address] [place] [id number] Jan, Dental examination Z01.20 [facility] [address] [id number] [address] [place] [id number] Jan, Dental caries K02.9 [facility] [address] [id number] [address] [place] [address] [id number] Jan, Dental examination Z01.20 [facility] [address] [id number] [address] [place] [address] [id number] Dec, Encounter for dental examina tion Z01.20 [facility] [address] [id number] [address] [place] [id number] Dec, Paranoid schizophrenia F20.0 [facility] [address] [id number] [address] [place] [address] [id number] Dec, Dental examination Z01.20 [facility] [address] [id number] [address] [place] [id number] Dec, [facility] [address] [id number] [address] [place] [id number] Dec, Paranoid schizophrenia F20.0 ; Posttraumatic stress disorder F43.10 and Attention deficit hyperactivity disorder (ADHD), inattentive type, 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 [facility] [address] [id number] [address] [place] [id number] Nov, Schizoaffective disorder, un specified F25.9 [facility] [address] [id number] [address] [place] [id number] Oct, Paranoid schizophrenia F20.0 [facility] [address] [id number] [address] [place] [id number] Oct, [facility] [address] [id number] [address] [place] [id number] Sep, Paranoid schizophrenia F20.0 ; Posttraumatic stress disorder F43.10 and Attention deficit hyperactivity disorder (ADHD), inattentive type, 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 [facility] [address] [id number] [address] [place] [id number] Sep, [facility] [address] [id number] [address] [place] [id number] Sep, Paranoid schizophrenia F20.0 ; Posttraumatic stress disorder F43.10 and Attention deficit hyperactivity disorder (ADHD), inattentive type, 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 [facility] [address] [id number] [address] [place] [id number] Aug, Paranoid schizophrenia F20.0 [facility] [address] [id number] [address] [place] [phone] Aug, [facility] [address] [id number] [address] [place] [id number] Aug, Posttraumatic stress disorde r F43.10 ; Paranoid schizophrenia F20.0 and Attention deficit hyperactivity disorder (ADHD), inattentive type, 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 [facility] [address] [id number] [address] [place] [id number] Jul, Bipolar disorder, unspecifie d F31.9 [facility] [address] [id number] [address] [place] [phone] Jul, [facility] [address] [id number] [address] [place] [phone] Jun, [facility] [address] [id number] [address] [place] [id number] Jun, Schizoaffective disorder, ch ronic 295.72 ; Posttraumatic stress disorder 309.81 and Attention deficit disorder of childhood without mention of hyperactivity 314.00 [facility] [address] [id number] [address] [place] [id number] May, [facility] [address] [facility] [id number] [address] [place] [id number] May, [facility] [address] [facility] [id number] [address] [place] [id number] May, Schizoaffective disorder, ch ronic 295.72 ; Posttraumatic stress disorder 309.81 ; Attention deficit disorder of childhood without mention of hyperactivity 314.00 and Bipolar disorder, unspecified 296.80 [facility] [address] [facility] [id number] [address] [place] [id number] Apr, Schizoaffective disorder, ch ronic 295.72 [facility] [address] [facility] [id number] [address] [place] [phone] Apr, [facility] [address] [id number] [address] [place] [id number] Apr, Schizoaffective disorder, ch ronic 295.72 ; Posttraumatic stress disorder 309.81 and Attention deficit disorder of childhood without mention of hyperactivity 314.00 [facility] [address] [id number] [address] [place] [id number] Mar, Disorganized schizophrenia, 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 [facility] [address] [id number] [address] [place] [phone] Mar, [facility] [address] [id number] [address] [place] [phone] Mar, [facility] [address] [id number] [address] [place] [id number] Mar, [facility] [address] [id number] [address] [place] [id number] Mar, [facility] [address] [id number] [address] [place] [id number] February, Schizoaffective disorder, ch ronic 295.72 [facility] [address] [id number] [address] [place] [id number] February, [facility] [address] [id number] [address] [place] [id number] February, Attention 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 ; Posttraumatic stress disorder 309.81 and Schizoaffective disorder, chronic 295.72 [facility] [address] [id number] [address] [place] [id number] 29 Jan, 2015 [facility] [address] [id number] [address] [place] [id number] 14 Jan, 2015 [facility] [address] [id number] [address] [place] [phone] Jan, [facility] [address] [id number] [address] [place] [phone] Dec, [facility] [address] [id number] [address] [place] [phone] Dec, [facility] [address] [id number] [address] [place] [phone] Dec, [facility] [address] [id number] [address] [place] [phone] Dec, [facility] [address] [id number] [address] [place] [phone] Dec, [facility] [address] [id number] [facility] [place] [address] Dec, [facility] [address] [id number] [address] [place] [address], [place] [address] Dec, [facility] [address] [id number] [address] [place] [address], [place] [address] Dec, [facility] [address] [id number] [address] [place] [address], [place] [address] Nov, [facility] [address] [id number] [address] [place] [address], [place] [address] Nov, [facility] [address] [id number] [address] [place] [address], [place] [address] Nov, [facility] [address] [id number] [address] [place] [address], [place] [address] Nov, [facility] [address] [id number] [address] [place] [address], [place] [address] Nov, [facility] [address] [id number] [address] [place] [address], [place] [address] Nov, [facility] [address] [id number] [address] [place] [address], [place] [address] Nov, [facility] [address] [id number] [address] [place] [address], [place] [address] Nov, [facility] [address] [id number] [address] [place] [address], [place] [address] Nov, [facility] [address] [id number] [address] [place] [address], [place] [address] Nov, [facility] [address] [id number] [address] [place] [address], [place] [address] Oct, [facility] [address] [id number] [address] [place] [address], [place] [address] Oct, [facility] [address] [id number] [address] [place] [address], [place] [address] 28 Oct, 2014 [facility] [address] [id number] [address] [place] [address], [place] [address] Oct, [facility] [address] [id number] [address] [place] [address], [place] [address] 15 Oct, 2014 [facility] [address] [id number] [address] [place] [address], [place] [address] Oct, [facility] [address] [id number] [address] [place] [address], [place] [address] Oct, [facility] [address] [id number] [address] [place] [address], [place] [address] 17 Sep, 2014 [facility] [address] [id number] [address] [place] [address], [place] [address] 17 Sep, 2014 [facility] [address] [id number] [address] [place] [address], [place] [address] Sep, [facility] [address] [id number] [address] [place] [address], [place] [address] Sep, [facility] [address] [id number] [address] [place] [address], [place] [address] Aug, [facility] [address] [id number] [address] [place] [address], [place] [address] Aug, [facility] [address] [id number] [address] [place] [address], [place] [address] 14 Aug, 2014 [facility] [address] [id number] [address] [place] [address], [place] [address] Aug, [facility] [address] [id number] [address] [place] [address], [place] [address] Aug, [facility] [address] [id number] [address] [place] [address], [place] [address] Aug, [facility] [address] [id number] [address] [place] [address], [place] [address] Jul, [facility] [address] [id number] [address] [place] [address], [place] [address] 29 Jul, 2014 [facility] [address] [id number] [address] [place] [address], [place] [address] 24 Jul, 2014 [facility] [address] [id number] [address] [place] [address], [place] [address] 24 Jul, 2014 [facility] [address] [id number] [address] [place] [address], [place] [address] 15 Jul, 2014 [facility] [address] [id number] [address] [place] [address], [place] [address] 15 Jul, 2014 [facility] [address] [id number] [address] [place] [address], [place] [address] 27 Jun, 2013 [facility] [address] [id number] [address] [place] [address], [place] [address] 27 Jun, 2013 [facility] [address] [id number] [address] [place] [address], [place] [address] 26 Jun, 2013 [facility] [address] [id number] [address] [place] [address], [place] [address] 26 Jun, 2013 [facility] [address] [id number] [address] [place] [address], [place] [address] 26 Jun, 2013 [facility] [address] [id number] [address] [place] [address], [place] [address] 26 Sep, 2013 [facility] [address] [id number] [address] [place] [address], [place] [address] 16 Sep, 2013 [facility] [address] [id number] [address] [place] [address], [place] [address] 16 Sep, 2013 [facility] [address] [id number] [address] [place] [address], [place] [address] 16 Sep, 2013 [facility] [address] [id number] [address] [place] [address], [place] [address] 16 Sep, 2013 [facility] [address] [id number] [address] [place] [address], [place] [address] Jun, [facility] [address] [id number] [address] [place] [address], [place] [address] May, [facility] [address] [id number] [address] [place] [address], [place] [address] May, [facility] [address] [id number] [address] [place] [address], [place] [address] May, [facility] [address] [id number] [address] [place] [address], [place] [address] May, [facility] [address] [id number] [address] [place] [address], [place] [address] May, [facility] [address] [id number] [address] [place] [address], [place] [address] May, [facility] [address] [id number] [address] [place] [address], [place] [address] May, [facility] [address] [id number] [address] [place] [address], [place] [address] May, [facility] [address] [id number] [address] [place] [address], [place] [address] May, [facility] [address] [id number] [address] [place] [address], [place] [address] May, [facility] [address] [id number] [address] [place] [address], [place] [address] Apr, [facility] [address] [id number] [address] [place] [address], [place] [address] Apr, [facility] [address] [id number] [address] [place] [address], [place] [address] Apr, [facility] [address] [id number] [address] [place] [address], [place] [address] Apr, [facility] [address] [id number] [address] [place] [address], [place] [address] Apr, [facility] [address] [id number] [facility] [place] [address] 24 Apr, 2014 [facility] [address] [id number] [facility] [place] [address] Apr, [facility] [address] [id number] [facility] [place] [address] Apr, [facility] [address] [id number] [address] [place] [address], [place] [address] Apr, [facility] [address] [id number] [address] [place] [address], [place] [address] Apr, [facility] [address] [id number] [address] [place] [address], [place] [address] Mar, [facility] [address] [id number] [address] [place] [address], [place] [address] Mar, [facility] [address] [id number] [address] [place] [address], [place] [address] Mar, [facility] [address] [id number] [address] [place] [address], [place] [address] 24 Mar, 2014 [facility] [address] [id number] [address] [place] [address], [place] [address] Mar, [facility] [address] [id number] [address] [place] [address], [place] [address] 18 Mar, 2014 [facility] [address] [id number] [address] [place] [address], [place] [address] 18 Mar, 2014 [facility] [address] [id number] [address] [place] [address], [place] [address] 16 Mar, 2014 [facility] [address] [id number] [address] [place] [address], [place] [address] 16 Mar, 2014 [facility] [address] [id number] [address] [place] [address], [place] [address] 13 Mar, 2014 [facility] [address] [id number] [address] [place] [address], [place] [address] Mar, [facility] [address] [id number] [facility] [place] [address] Mar, [facility] [address] [id number] [address] [place] [address], [place] [address] Mar, [facility] [address] [id number] [address] [place] [address], [place] [address] Mar, [facility] [address] [id number] [address] [place] [address], [place] [address] Mar, [facility] [address] [id number] [address] [place] [address], [place] [address] Mar, [facility] [address] [id number] [address] [place] [address], [place] [address] Mar, [facility] [address] [id number] [address] [place] [address], [place] [address] Mar, [facility] [address] [id number] [address] [place] [address], [place] [address] Mar, [facility] [address] [id number] [address] [place] [address], [place] [address] Mar, [facility] [address] [id number] [address] [place] [address], [place] [address] February, [facility] [address] [id number] [address] [place] [address], [place] [address] February, [facility] [address] [id number] [address] [place] [address], [place] [address] February, [facility] [address] [id number] [address] [place] [address], [place] [address] February, [facility] [address] [id number] [address] [place] [address], [place] [address] February, [facility] [address] [id number] [address] [place] [address], [place] [address] February, [facility] [address] [id number] [address] [place] [address], [place] [address] February, [facility] [address] [id number] [address] [place] [address], [place] [address] February, [facility] [address] [id number] [address] [place] [address], [place] [address] February, [facility] [address] [id number] [address] [place] [address], [place] [address] February, [facility] [address] [id number] [address] [place] [address], [place] [address] February, [facility] [address] [id number] [address] [place] [address], [place] [address] February, [facility] [address] [id number] [address] [place] [address], [place] [address] February, [facility] [address] [id number] [address] [place] [address], [place] [address] February, [facility] [address] [id number] [address] [place] [address], [place] [address] February, [facility] [address] [id number] [address] [place] [address], [place] [address] February, [facility] [address] [id number] [address] [place] [address], [place] [address] February, [facility] [address] [id number] [address] [place] [address], [place] [address] February, [facility] [address] [id number] [address] [place] [address], [place] [address] February, [facility] [address] [id number] [address] [place] [address], [place] [address] February, [facility] [address] [id number] [address] [place] [address], [place] [address] February, [facility] [address] [id number] [address] [place] [address], [place] [address] Jan, [facility] [address] [id number] [address] [place] [address], [place] [address] 30 Jan, 2014 [facility] [address] [id number] [address] [place] [address], [place] [address] 18 Jan, 2014 [facility] [address] [id number] [address] [place] [address], [place] [address] 18 Jan, 2014 [facility] [address] [id number] [address] [place] [address], [place] [address] Jan, [facility] [address] [id number] [address] [place] [address], [place] [address] 18 Jan, 2014 [facility] [address] [id number] [address] [place] [address], [place] [address] Jan, [facility] [address] [id number] [address] [place] [address], [place] [address] Jan, [facility] [address] [id number] [address] [place] [address], [place] [address] 21 Dec, 2013 [facility] [address] [id number] [address] [place] [address], [place] [address] 20 Dec, 2013 [facility] [address] [id number] [address] [place] [address], [place] [address] 20 Dec, 2013 [facility] [address] [id number] [address] [place] [address], [place] [address] 19 Dec, 2013 [facility] [address] [id number] [address] [place] [address], [place] [address] 19 Dec, 2013 [facility] [address] [id number] [address] [place] [address], [place] [address] 15 Dec, 2013 [facility] [address] [id number] [address] [place] [address], [place] [address] 15 Dec, 2013 [facility] [address] [id number] [address] [place] [address], [place] [address] 11 Dec, 2013 [facility] [address] [id number] [address] [place] [address], [place] [address] Dec, [facility] [address] [id number] [address] [place] [address], [place] [address] Dec, [facility] [address] [id number] [address] [place] [address], [place] [address] Nov, [facility] [address] [id number] [address] [place] [address], [place] [address] Nov, [facility] [address] [id number] [address] [place] [address], [place] [address] Nov, [facility] [address] [id number] [address] [place] [address], [place] [address] Nov, [facility] [address] [id number] [address] [place] [address], [place] [address] Nov, [facility] [address] [id number] [address] [place] [address], [place] [address] Oct, [facility] [address] [id number] [address] [place] [address], [place] [address] Oct, [facility] [address] [id number] [address] [place] [address], [place] [address] Oct, [facility] [address] [id number] [address] [place] [address], [place] [address] Sep, [facility] [address] [id number] [address] [place] [address], [place] [address] Sep, [facility] [address] [id number] [address] [place] [address], [place] [address] Sep, [facility] [address] [id number] [address] [place] [address], [place] [address] Sep, [facility] [address] [id number] [address] [place] [address], [place] [address] Aug, [facility] [address] [id number] [address] [place] [address], [place] [address] Aug, [facility] [address] [id number] [address] [place] [address], [place] [address] Jul, [facility] [address] [id number] [address] [place] [address], [place] [address] Jul, [facility] [address] [id number] [address] [place] [address], [place] [address] Jul, [facility] [address] [id number] [address] [place] [address], [place] [address] Jul, [facility] [address] [id number] [address] [place] [address], [place] [address] Jul, [facility] [address] [id number] [address] [place] [address], [place] [address] Jun, [facility] [address] [id number] [address] [place] [address], [place] [address] 25 Jun, 2013 [facility] [address] [id number] [address] [place] [address], [place] [address] 19 Jun, 2013 [facility] [address] [id number] [address] [place] [address], [place] [address] 18 Jun, 2013 [facility] [address] [id number] [address] [place] [address], [place] [address] 16 Jun, 2013 [facility] [address] [id number] [address] [place] [address], [place] [address] 12 Jun, 2013 [facility] [address] [id number] [address] [place] [address], [place] [address] 11 Jun, 2013 [facility] [address] [id number] [address] [place] [address], [place] [address] 30 May, 2013 [facility] [address] [id number] [address] [place] [address], [place] [address] May, [facility] [address] [id number] [address] [place] [address], [place] [address] Apr, [facility] [address] [id number] [address] [place] [address], [place] [address] Apr, [facility] [address] [id number] [address] [place] [address], [place] [address] Apr, [facility] [address] [id number] [address] [place] [address], [place] [address] Mar, [facility] [address] [id number] [address] [place] [address], [place] [address] Mar, [facility] [address] [id number] [address] [place] [address], [place] [address] February, [facility] [address] [id number] [address] [place] [address], [place] [address] February, [facility] [address] [id number] [address] [place] [address], [place] [address] February, [facility] [address] [id number] [address] [place] [address], [place] [address] February, [facility] [address] [id number] [address] [place] [address], [place] [address] Jan, [facility] [address] [id number] [address] [place] [address], [place] [address] Jan, [facility] [address] [id number] [address] [place] [address], [place] [address] Jan, [facility] [address] [id number] [address] [place] [address], [place] [address] Dec, [facility] [address] [id number] [address] [place] [address], [place] [address] Dec, [facility] [address] [id number] [address] [place] [address], [place] [address] Dec, [facility] [address] [id number] [address] [place] [address], [place] [address] Dec, [facility] [address] [id number] [address] [place] [address], [place] [address] Nov, [facility] [address] [id number] [address] [place] [address], [place] [address] 13 Nov, 2012 [facility] [address] [id number] [address] [place] [address], [place] [address] Oct, [facility] [address] [id number] [address] [place] [address], [place] [address] Oct, [facility] [address] [id number] [address] [place] [address], [place] [address] Oct, [facility] [address] [id number] [address] [place] [address], [place] [address] Oct, [facility] [address] [id number] [address] [place] [address], [place] [address] Aug, [facility] [address] [id number] [address] [place] [address], [place] [address] Aug, [facility] [address] [id number] [address] [place] [address], [place] [address] Jun, [facility] [address] [id number] [address] [place] [address], [place] [address] May, [facility] [address] [id number] [address] [place] [address], [place] [address] May, [facility] [address] [id number] [address] [place] [address], [place] [address] Apr, [facility] [address] [id number] [address] [place] [address], [place] [address] Apr, [facility] [address] [id number] [address] [place] [address], [place] [address] Apr, [facility] [address] [id number] [address] [place] [address], [place] [address] Mar, [facility] [address] [id number] [address] [place] [address], [place] [address] Mar, [facility] [address] [id number] [address] [place] [address], [place] [address] Mar, [facility] [address] [id number] [address] [place] [address], [place] [address] Mar, [facility] [address] [id number] [address] [place] [address], [place] [address] Mar, [facility] [address] [id number] [address] [place] [address], [place] [address] February, [facility] [address] [id number] [address] [place] [address], [place] [address] February, [facility] [address] [id number] [address] [place] [address], [place] [address] February, [facility] [address] [id number] [address] [place] [address], [place] [address] February, [facility] [address] [id number] [address] [place] [address], [place] [address] February, [facility] [address] [id number] [address] [place] [address], [place] [address] February, [facility] [address] [id number] [address] [place] [address], [place] [address] February, [facility] [address] [id number] [address] [place] [address], [place] [address] Jan, [facility] [address] [id number] [address] [place] [address], [place] [address] 18 Jan, 2012 [facility] [address] [id number] [address] [place] [address], [place] [address] 17 Jan, 2012 [facility] [address] [id number] [address] [place] [address], [place] [address] 13 Jan, 2012 [facility] [address] [id number] [address] [place] [address], [place] [address] 10 Jan, 2012 [facility] [address] [id number] [address] [place] [address], [place] [address] 04 Jan, 2012 [facility] [address] [id number] [address] [place] [address], [place] [address] 30 Dec, 2011 [facility] [address] [id number] [address] [place] [address], [place] [address] 24 Dec, 2011 [facility] [address] [id number] [address] [place] [address], [place] [address] 20 Dec, 2011 [facility] [address] [id number] [address] [place] [address], [place] [address] 13 Dec, 2011 [facility] [address] [id number] [address] [place] [address], [place] [address] 06 Dec, 2011 [facility] [address] [id number] [address] [place] [address], [place] [address] 28 Nov, 2011 [facility] [address] [id number] [address] [place] [address], [place] [address] 27 Nov, 2011 [facility] [address] [id number] [address] [place] [address], [place] [address] 25 Nov, 2011 [facility] [address] [id number] [address] [place] [address], [place] [address] 14 Nov, 2011 [facility] [address] [id number] [address] [place] [address], [place] [address] Nov, [facility] [address] [id number] [address] [place] [address], [place] [address] Nov, [facility] [address] [id number] [address] [place] [address], [place] [address] Oct, [facility] [address] [id number] [address] [place] [address], [place] [address] Oct, [facility] [address] [id number] [address] [place] [address], [place] [address] Oct, [facility] [address] [id number] [address] [place] [address], [place] [address] Oct, [facility] [address] [id number] [address] [place] [address], [place] [address] Oct, [facility] [address] [id number] [address] [place] [address], [place] [address] Sep, [facility] [address] [id number] [address] [place] [address], [place] [address] Sep, [facility] [address] [id number] [address] [place] [address], [place] [address] Sep, [facility] [address] [id number] [address] [place] [address], [place] [address] 14 Sep, 2011 [facility] [address] [id number] [address] [place] [address], [place] [address] 14 Sep, 2011 [facility] [address] [id number] [address] [place] [address], [place] [address] Sep, [facility] [address] [id number] [address] [place] [address], [place] [address] Sep, [facility] [address] [id number] [address] [place] [address], [place] [address] Sep, [facility] [address] [id number] [address] [place] [address], [place] [address] Sep, [facility] [address] [id number] [address] [place] [address], [place] [address] Aug, [facility] [address] [id number] [address] [place] [address], [place] [address] Aug, [facility] [address] [id number] [address] [place] [id number] Aug, [facility] [address] [id number] [address] [place] [address], [place] [address] Aug, [facility] [address] [id number] [address] [place] [address], [place] [address] Aug, [facility] [address] [id number] [address] [place] [address], [place] [address] Aug, [facility] [address] [id number] [address] [place] [id number] Aug, [facility] [address] [id number] [address] [place] [address], [place] [address] 16 Aug, 2011 [facility] [address] [id number] [address] [place] [id number] Aug, [facility] [address] [id number] [address] [place] [address], [place] [address] Aug, [facility] [address] [id number] [address] [place] [address], [place] [address] Aug, [facility] [address] [id number] [address] [place] [address], [place] [address] Aug, [facility] [address] [id number] [address] [place] [address], [place] [address] Jul, [facility] [address] [id number] [address] [place] [id number] Jul, [facility] [address] [id number] [address] [place] [address], [place] [address] 24 Jul, 2011 [facility] [address] [id number] [address] [place] [id number] Jul, [facility] [address] [id number] [address] [place] [id number] Jul, [facility] [address] [id number] [address] [place] [id number] Jul, [facility] [address] [id number] [address] [place] [id number] 18 Jul, 2011 [facility] [address] [id number] [address] [place] [id number] 11 Jul, 2011 [facility] [address] [id number] [address] [place] [id number] Jul, [facility] [address] [id number] [address] [place] [id number] 10 Jul, 2011 [facility] [address] [id number] [address] [place] [id number] Nov, [facility] [address] [facility] [id number] [address] [place] [id number] Aug, [facility] [address] [facility] [id number] [address] [place] [id number] Aug, [facility] [address] [facility] [id number] [address] [place] [id number] Aug, [facility] [address] [facility] [id number] [address] [place] [id number] Aug, [facility] [address] [facility] [id number] [address] [place] [id number] Jul, IMMUNIZATIONS No Known Immunizations SOCIAL HISTORY Never Assessed REASON FOR VISIT PLAN OF CARE VITAL SIGNS MEDICATIONS Unknown Medications RESULTS No Results PROCEDURES Procedure Date Ordered Result Body Site THER/PROPH/DIAG INJ, SC/IM January 15, 2015 INSTRUCTIONS MEDICATIONS ADMINISTERED No Known Medications MEDICAL [...]
--- OUTSIDE RECORDS SUMMARY | 2020-04-04 02:07 | XMS REPORT ---
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 Active 51168152 Problem Generalized anxiety disorder 300.02 A ctive 90239078 Problem Obsessive-compulsive disorders 300.3 Active 437503352 Problem Catatonic schizophrenia, 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 676760537 Problem Disorganized schizophrenia, 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 40002552 Problem Paranoid schizophrenia F20.0 Active 83774814 Problem Borderline personality disorder F60.3 Active 41875175 Problem Paranoid schizophrenia, unspecified condition 295.30 Active 74181079 Problem Schizoaffective disorder, depressive type F25.1 Active 37299412 Problem Bipolar disorder, unspecified 296.80 Active 66223941 Problem Schizoaffective disorder, unspecified F25.9 Active 49065225 Problem Attention deficit hyperactivity disorder (ADHD), inattentive type, 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 17444549 Problem Posttraumatic stress disorder F43.10 Active 84913161 Problem High risk medication use Z79.899 Activ e [id number] ALLERGIES No Information ENCOUNTERS Encounter Location Date Diagnosis [facility] [address] [facility] [id number] [address] [place] [phone] May, [facility] [address] [facility] [id number] [address] [place] [phone] Mar, Paranoid schizophrenia F20.0 [facility] [address] [facility] [id number] [address] [place] [phone] Mar, Paranoid schizophrenia F20.0 ; Posttraumatic stress disorder F43.10 ; Attention deficit hyperactivity disorder (ADHD), inattentive type, 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 and Borderline personality disorder F60.3 [facility] [address] [facility] [id number] [address] [place] [phone] February, Paranoid schizophrenia F20.0 [facility] [address] [facility] [id number] [address] [place] [phone] Jan, Paranoid schizophrenia F20.0 ; Posttraumatic stress disorder F43.10 ; Attention deficit hyperactivity disorder (ADHD), inattentive type, 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 and Borderline personality disorder F60.3 [facility] [address] [facility] [id number] [address] [place] [phone] Dec, Paranoid schizophrenia F20.0 ; Posttraumatic stress disorder F43.10 ; Attention deficit hyperactivity disorder (ADHD), inattentive type, 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 and Borderline personality disorder F60.3 [facility] [address] [facility] [id number] [address] [place] [phone] Dec, Paranoid schizophrenia F20.0 ; Posttraumatic stress disorder F43.10 ; Attention deficit hyperactivity disorder (ADHD), inattentive type, 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 and Borderline personality disorder F60.3 [facility] [address] [facility] [id number] [address] [place] [phone] Oct, Paranoid schizophrenia F20.0 ; Posttraumatic stress disorder F43.10 ; Attention deficit hyperactivity disorder (ADHD), inattentive type, 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 and Borderline personality disorder F60.3 [facility] [address] [facility] [id number] [address] [place] [phone] Oct, Paranoid schizophrenia F20.0 ; Posttraumatic stress disorder F43.10 ; Attention deficit hyperactivity disorder (ADHD), inattentive type, 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 and Borderline personality disorder F60.3 [facility] [address] [facility] [id number] [address] [place] [phone] Aug, [facility] [address] [facility] [id number] [address] [place] [phone] Aug, Paranoid schizophrenia F20.0 ; Posttraumatic stress disorder F43.10 ; Attention deficit hyperactivity disorder (ADHD), inattentive type, 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 and Borderline personality disorder F60.3 [facility] [address] [facility] [id number] [address] [place] [phone] Jul, Dry skin dermatitis L85.3 [facility] [address] [id number] [address] [place] [phone] Jul, [facility] [address] [facility] [id number] [address] [place] [phone] Jul, Paranoid schizophrenia F20.0 [facility] [address] [id number] [address] [place] [phone] May, Paranoid schizophrenia F20.0 ; Posttraumatic stress disorder F43.10 ; Attention deficit hyperactivity disorder (ADHD), inattentive type, 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 and Borderline personality disorder F60.3 [facility] [address] [facility] [id number] [address] [place] [phone] May, [facility] [address] [facility] [id number] [address] [place] [phone] May, Paranoid schizophrenia F20.0 [facility] [address] [facility] [id number] [address] [place] [phone] May, Paranoid schizophrenia F20.0 ; Posttraumatic stress disorder F43.10 ; Attention deficit hyperactivity disorder (ADHD), inattentive type, 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 and Borderline personality disorder F60.3 [facility] [address] [id number] [address] [place] [phone] Apr, [facility] [address] [facility] [id number] [address] [place] [phone] Apr, Paranoid schizophrenia F20.0 ; Posttraumatic stress disorder F43.10 ; Attention deficit hyperactivity disorder (ADHD), inattentive type, 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 and Borderline personality disorder F60.3 [facility] [address] [facility] [id number] [address] [place] [phone] Apr, [facility] [address] [id number] [address] [place] [phone] Apr, Schizoaffective disorder, de pressive type F25.1 and Borderline personality disorder F60.3 [facility] [address] [id number] [address] [place] [phone] Apr, Paranoid schizophrenia F20.0 ; Posttraumatic stress disorder F43.10 ; Attention deficit hyperactivity disorder (ADHD), inattentive type, 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 and Borderline personality disorder F60.3 [facility] [address] [id number] [address] [place] [phone] Apr, [facility] [address] [id number] [address] [place] [phone] Apr, Paranoid schizophrenia F20.0 ; Posttraumatic stress disorder F43.10 ; Attention deficit hyperactivity disorder (ADHD), inattentive type, 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 and Borderline personality disorder F60.3 [facility] [address] [id number] [address] [place] [phone] Apr, [facility] [address] [id number] [address] [place] [phone] Mar, Paranoid schizophrenia F20.0 [facility] [address] [id number] [address] [place] [phone] Mar, [facility] [address] [id number] [address] [place] [phone] Mar, Paranoid schizophrenia F20.0 ; Posttraumatic stress disorder F43.10 ; Attention deficit hyperactivity disorder (ADHD), inattentive type, 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 and Borderline personality disorder F60.3 [facility] [address] [id number] [address] [place] [phone] February, Paranoid schizophrenia F20.0 [facility] [address] [id number] [address] [place] [phone] February, Paranoid schizophrenia F20.0 ; Posttraumatic stress disorder F43.10 ; Attention deficit hyperactivity disorder (ADHD), inattentive type, 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 and Borderline personality disorder F60.3 [facility] [address] [facility] [id number] [address] [place] [phone] February, Paranoid schizophrenia F20.0 ; Posttraumatic stress disorder F43.10 ; Attention deficit hyperactivity disorder (ADHD), inattentive type, 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 and Borderline personality disorder F60.3 [facility] [address] [facility] [id number] [address] [place] [phone] February, [facility] [address] [facility] [id number] [address] [place] [phone] February, Paranoid schizophrenia F20.0 [facility] [address] [facility] [id number] [address] [place] [phone] February, Paranoid schizophrenia F20.0 [facility] [address] [facility] [id number] [address] [place] [phone] February, Paranoid schizophrenia F20.0 ; Posttraumatic stress disorder F43.10 ; Attention deficit hyperactivity disorder (ADHD), inattentive type, 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 and Borderline personality disorder F60.3 [facility] [address] [facility] [id number] [address] [place] [phone] Jan, Paranoid schizophrenia F20.0 ; Posttraumatic stress disorder F43.10 ; Attention deficit hyperactivity disorder (ADHD), inattentive type, 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 and Borderline personality disorder F60.3 [facility] [address] [facility] [id number] [address] [place] [phone] Jan, Paranoid schizophrenia F20.0 [facility] [address] [facility] [id number] [address] [place] [phone] Jan, Paranoid schizophrenia F20.0 [facility] [address] [facility] [id number] [address] [place] [phone] Jan, Paranoid schizophrenia F20.0 ; Posttraumatic stress disorder F43.10 ; Attention deficit hyperactivity disorder (ADHD), inattentive type, 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 and Borderline personality disorder F60.3 [facility] [address] [id number] [address] [place] [phone] Dec, [facility] [address] [id number] [address] [place] [phone] Nov, Paranoid schizophrenia F20.0 ; Posttraumatic stress disorder F43.10 ; Attention deficit hyperactivity disorder (ADHD), inattentive type, 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 and Borderline personality disorder F60.3 [facility] [address] [id number] [address] [place] [phone] Nov, [facility] [address] [id number] [address] [place] [phone] Oct, Paranoid schizophrenia F20.0 [facility] [address] [id number] [address] [place] [phone] Oct, Paranoid schizophrenia F20.0 ; Posttraumatic stress disorder F43.10 ; Attention deficit hyperactivity disorder (ADHD), inattentive type, 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 ; Borderline personality disorder F60.3 and Other nursing home (current) drug therapy Z79.899 [facility] [address] [id number] [address] [place] [phone] Oct, [facility] [address] [id number] [address] [place] [phone] Oct, [facility] [address] [id number] [address] [place] [phone] Sep, [facility] [address] [id number] [address] [place] [phone] Sep, Paranoid schizophrenia F20.0 ; Posttraumatic stress disorder F43.10 ; Attention deficit hyperactivity disorder (ADHD), inattentive type, 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 and Borderline personality disorder F60.3 [facility] [address] [id number] [address] [place] [phone] Sep, Paranoid schizophrenia F20.0 [facility] [address] [id number] [address] [place] [phone] Aug, Paranoid schizophrenia F20.0 ; Posttraumatic stress disorder F43.10 ; Attention deficit hyperactivity disorder (ADHD), inattentive type, 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 and Borderline personality disorder F60.3 [facility] [address] [facility] [id number] [address] [place] [phone] Aug, Paranoid schizophrenia F20.0 ; Posttraumatic stress disorder F43.10 ; Attention deficit hyperactivity disorder (ADHD), inattentive type, 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 and Borderline personality disorder F60.3 [facility] [address] [facility] [id number] [address] [place] [phone] Aug, [facility] [address] [facility] [id number] [address] [place] [phone] Jul, Paranoid schizophrenia F20.0 ; Posttraumatic stress disorder F43.10 ; Attention deficit hyperactivity disorder (ADHD), inattentive type, 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 and Borderline personality disorder F60.3 [facility] [address] [place] [id number] [address] [place] [phone] Jul, Paranoid schizophrenia F20.0 [facility] [address] [facility] [id number] [address] [place] [phone] Jul, Paranoid schizophrenia F20.0 ; Posttraumatic stress disorder F43.10 ; Attention deficit hyperactivity disorder (ADHD), inattentive type, 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 and Borderline personality disorder F60.3 [facility] [address] [facility] [id number] [address] [place] [phone] Jun, Paranoid schizophrenia F20.0 ; Posttraumatic stress disorder F43.10 ; Attention deficit hyperactivity disorder (ADHD), inattentive type, 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 and Borderline personality disorder F60.3 [facility] [address] [facility] [id number] [address] [place] [phone] May, Other nursing home (current) dr gabriel parra Z79.899 [facility] [address] [place] [id number] [address] [place] [phone] May, [facility] [address] [id number] [address] [address] May, [facility] [address] [id number] [address] [place] [phone] May, Attention deficit hyperactiv ity disorder (ADHD), inattentive type, mild F90.0 [facility] [address] [id number] [address] [place] [phone] May, [facility] [address] [facility] [id number] [address] [place] [phone] May, Attention deficit hyperactiv ity disorder (ADHD), inattentive type, mild F90.0 [facility] [address] [id number] [address] [place] [phone] May, Paranoid schizophrenia F20.0 ; Posttraumatic stress disorder F43.10 ; Attention deficit hyperactivity disorder (ADHD), inattentive type, 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 and Other long term care administrator (current) drug therapy Z79.899 [facility] [address] [facility] [id number] [address] [place] [phone] Apr, Paranoid schizophrenia F20.0 [facility] [address] [facility] [id number] [address] [place] [phone] Apr, Paranoid schizophrenia F20.0 ; Posttraumatic stress disorder F43.10 and Attention deficit hyperactivity disorder (ADHD), inattentive type, 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 [facility] [address] [facility] [id number] [address] [place] [phone] February, [facility] [address] [facility] [id number] [address] [place] [phone] February, Paranoid schizophrenia F20.0 ; Posttraumatic stress disorder F43.10 and Attention deficit hyperactivity disorder (ADHD), inattentive type, 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 [facility] [address] [id number] [address] [place] [phone] February, Paranoid schizophrenia F20.0 ; Posttraumatic stress disorder F43.10 and Attention deficit hyperactivity disorder (ADHD), inattentive type, 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 [facility] [address] [id number] [address] [place] [phone] Jan, Paranoid schizophrenia F20.0 ; Posttraumatic stress disorder F43.10 and Attention deficit hyperactivity disorder (ADHD), inattentive type, 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 [facility] [address] [id number] [address] [place] [id number] Dec, Dental examination Z01.20 [facility] [address] [id number] [address] [place] [address] [id number] Nov, Dental examination Z01.20 [facility] [address] [id number] [address] [place] [address] [id number] Nov, Dental examination Z01.20 [facility] [address] [id number] [address] [place] [phone] Nov, Dental caries K02.9 [facility] [address] [id number] [address] [place] [phone] Nov, High risk medication use Z79 .899 [facility] [address] [id number] [address] [place] [phone] Nov, Paranoid schizophrenia F20.0 ; Posttraumatic stress disorder F43.10 ; Attention deficit hyperactivity disorder (ADHD), inattentive type, 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 and Borderline personality disorder in adult F60.3 [facility] [address] [id number] [address] [place] [address] [id number] Oct, Dental caries K02.9 [facility] [address] [id number] [address] [place] [phone] Sep, Paranoid schizophrenia F20.0 ; Posttraumatic stress disorder F43.10 and Attention deficit hyperactivity disorder (ADHD), inattentive type, 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 [facility] [address] [id number] [address] [place] [phone] Aug, Paranoid schizophrenia F20.0 ; Posttraumatic stress disorder F43.10 and Attention deficit hyperactivity disorder (ADHD), inattentive type, 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 [facility] [address] [id number] [address] [place] [phone] Aug, Strep throat J02.0 and Cough R05 [facility] [address] [id number] [address] [place] [phone] Aug, [facility] [address] [id number] [address] [place] [phone] Jul, Paranoid schizophrenia F20.0 ; Posttraumatic stress disorder F43.10 and Attention deficit hyperactivity disorder (ADHD), inattentive type, 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 [facility] [address] [id number] [address] [place] [phone] Jul, [facility] [address] [id number] [address] [place] [phone] Jun, Paranoid schizophrenia F20.0 ; Posttraumatic stress disorder F43.10 and Attention deficit hyperactivity disorder (ADHD), inattentive type, 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 [facility] [address] [id number] [address] [place] [address] [id number] Jun, Dental examination Z01.20 [facility] [address] [id number] [address] [place] [phone] Jun, [facility] [address] [id number] [address] [place] [phone] May, Paranoid schizophrenia F20.0 [facility] [address] [id number] [address] [place] [phone] May, Paranoid schizophrenia F20.0 ; Posttraumatic stress disorder F43.10 and Attention deficit hyperactivity disorder (ADHD), inattentive type, 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 [facility] [address] [id number] [address] [place] [phone] May, [facility] [address] [id number] [address] [place] [phone] May, Paranoid schizophrenia F20.0 [facility] [address] [id number] [address] [place] [phone] May, [facility] [address] [id number] [address] [place] [phone] May, Paranoid schizophrenia F20.0 [facility] [address] [id number] [address] [place] [phone] May, Schizoaffective disorder, un specified F25.9 [facility] [address] [id number] [address] [place] [phone] May, Schizoaffective disorder, un specified F25.9 [facility] [address] [id number] [address] [place] [phone] May, [facility] [address] [id number] [address] [place] [phone] May, Paranoid schizophrenia F20.0 [facility] [address] [id number] [address] [place] [phone] May, Paranoid schizophrenia F20.0 ; Posttraumatic stress disorder F43.10 and Attention deficit hyperactivity disorder (ADHD), inattentive type, 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 [facility] [address] [id number] [address] [place] [phone] Mar, [facility] [address] [id number] [address] [place] [phone] Mar, Paranoid schizophrenia F20.0 ; Posttraumatic stress disorder F43.10 and Attention deficit hyperactivity disorder (ADHD), inattentive type, 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 [facility] [address] [id number] [address] [place] [phone] Mar, Paranoid schizophrenia F20.0 [facility] [address] [id number] [address] [place] [phone] Mar, Paranoid schizophrenia F20.0 ; Attention deficit hyperactivity disorder (ADHD), inattentive type, 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 and Posttraumatic stress disorder F43.10 [facility] [address] [id number] [address] [place] [id number] Mar, [facility] [address] [id number] [address] [place] [id number] Mar, Paranoid schizophrenia F20.0 ; Posttraumatic stress disorder F43.10 and Attention deficit hyperactivity disorder (ADHD), inattentive type, 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 [facility] [address] [id number] [address] [place] [phone] February, [facility] [address] [id number] [address] [place] [phone] February, [facility] [address] [id number] [address] [place] [phone] February, [facility] [address] [id number] [address] [place] [phone] February, [facility] [address] [id number] [address] [place] [phone] Jan, Paranoid schizophrenia F20.0 [facility] [address] [id number] [address] [place] [id number] Jan, Dental examination Z01.20 [facility] [address] [id number] [address] [place] [address] [id number] Jan, Dental caries K02.9 [facility] [address] [id number] [address] [place] [address] [id number] Jan, Dental examination Z01.20 [facility] [address] [id number] [address] [place] [address] [id number] Dec, Encounter for dental examina tion Z01.20 [facility] [address] [id number] [address] [place] [phone] Dec, Paranoid schizophrenia F20.0 [facility] [address] [id number] [address] [place] [address] [id number] Dec, Dental examination Z01.20 [facility] [address] [id number] [address] [place] [phone] Dec, [facility] [address] [id number] [address] [place] [phone] Dec, Paranoid schizophrenia F20.0 ; Posttraumatic stress disorder F43.10 and Attention deficit hyperactivity disorder (ADHD), inattentive type, 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 [facility] [address] [id number] [address] [place] [phone] Nov, Schizoaffective disorder, un specified F25.9 [facility] [address] [id number] [address] [place] [phone] Oct, Paranoid schizophrenia F20.0 [facility] [address] [id number] [address] [place] [phone] Oct, [facility] [address] [id number] [address] [place] [phone] Sep, Paranoid schizophrenia F20.0 ; Posttraumatic stress disorder F43.10 and Attention deficit hyperactivity disorder (ADHD), inattentive type, 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 [facility] [address] [id number] [address] [place] [phone] Sep, [facility] [address] [id number] [address] [place] [phone] Sep, Paranoid schizophrenia F20.0 ; Posttraumatic stress disorder F43.10 and Attention deficit hyperactivity disorder (ADHD), inattentive type, 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 [facility] [address] [id number] [address] [place] [phone] Aug, Paranoid schizophrenia F20.0 [facility] [address] [id number] [address] [place] [phone] Aug, [facility] [address] [id number] [address] [place] [phone] Aug, Posttraumatic stress disorde r F43.10 ; Paranoid schizophrenia F20.0 and Attention deficit hyperactivity disorder (ADHD), inattentive type, 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 [facility] [address] [id number] [address] [place] [phone] Jul, Bipolar disorder, unspecifie d F31.9 [facility] [address] [id number] [address] [place] [phone] Jul, [facility] [address] [id number] [address] [place] [phone] Jun, [facility] [address] [id number] [address] [place] [phone] Jun, Schizoaffective disorder, ch ronic 295.72 ; Posttraumatic stress disorder 309.81 and Attention deficit disorder of childhood without mention of hyperactivity 314.00 [facility] [address] [id number] [address] [place] [phone] May, [facility] [address] [facility] [id number] [address] [place] [phone] May, [facility] [address] [facility] [id number] [address] [place] [phone] May, Schizoaffective disorder, ch ronic 295.72 ; Posttraumatic stress disorder 309.81 ; Attention deficit disorder of childhood without mention of hyperactivity 314.00 and Bipolar disorder, unspecified 296.80 [facility] [address] [facility] [id number] [address] [place] [phone] Apr, Schizoaffective disorder, ch ronic 295.72 [facility] [address] [facility] [id number] [address] [place] [phone] Apr, [facility] [address] [id number] [address] [place] [phone] Apr, Schizoaffective disorder, ch ronic 295.72 ; Posttraumatic stress disorder 309.81 and Attention deficit disorder of childhood without mention of hyperactivity 314.00 [facility] [address] [id number] [address] [place] [phone] Mar, Disorganized schizophrenia, 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 [facility] [address] [id number] [address] [place] [phone] Mar, [facility] [address] [id number] [address] [place] [phone] Mar, [facility] [address] [id number] [address] [place] [phone] Mar, [facility] [address] [id number] [address] [place] [phone] Mar, [facility] [address] [id number] [address] [place] [phone] February, Schizoaffective disorder, ch ronic 295.72 [facility] [address] [id number] [address] [place] [phone] February, [facility] [address] [id number] [address] [place] [phone] February, Attention 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 ; Posttraumatic stress disorder 309.81 and Schizoaffective disorder, chronic 295.72 [facility] [address] [id number] [address] [place] [id number] 29 Jan, 2015 [facility] [address] [id number] [address] [place] [phone] 14 Jan, 2015 [facility] [address] [id number] [address] [place] [phone] Jan, [facility] [address] [id number] [address] [place] [phone] Dec, [facility] [address] [id number] [address] [place] [phone] Dec, [facility] [address] [id number] [address] [place] [phone] Dec, [facility] [address] [id number] [address] [place] [phone] Dec, [facility] [address] [id number] [address] [place] [phone] Dec, [facility] [address] [id number] [facility] [address] Dec, [facility] [address] [id number] [address] [place] [address], [place] [address] Dec, [facility] [address] [id number] [address] [place] [address], [place] [address] Dec, [facility] [address] [id number] [address] [place] [address], [place] [address] Nov, [facility] [address] [id number] [address] [place] [address], [place] [address] Nov, [facility] [address] [id number] [address] [place] [address], [place] [address] Nov, [facility] [address] [id number] [address] [place] [address], [place] [address] Nov, [facility] [address] [id number] [address] [place] [address], [place] [address] Nov, [facility] [address] [id number] [address] [place] [address], [place] [address] Nov, [facility] [address] [id number] [address] [place] [address], [place] [address] Nov, [facility] [address] [id number] [address] [place] [address], [place] [address] Nov, [facility] [address] [id number] [address] [place] [address], [place] [address] Nov, [facility] [address] [id number] [address] [place] [address], [place] [address] Nov, [facility] [address] [id number] [address] [place] [address], [place] [address] Oct, [facility] [address] [id number] [address] [place] [address], [place] [address] Oct, [facility] [address] [id number] [address] [place] [address], [place] [address] 28 Oct, 2014 [facility] [address] [id number] [address] [place] [address], [place] [address] Oct, [facility] [address] [id number] [address] [place] [address], [place] [address] 15 Oct, 2014 [facility] [address] [id number] [address] [place] [address], [place] [address] Oct, [facility] [address] [id number] [address] [place] [address], [place] [address] Oct, [facility] [address] [id number] [address] [place] [address], [place] [address] 17 Sep, 2014 [facility] [address] [id number] [address] [place] [address], [place] [address] 17 Sep, 2014 [facility] [address] [id number] [address] [place] [address], [place] [address] Sep, [facility] [address] [id number] [address] [place] [address], [place] [address] Sep, [facility] [address] [id number] [address] [place] [address], [place] [address] Aug, [facility] [address] [id number] [address] [place] [address], [place] [address] Aug, [facility] [address] [id number] [address] [place] [address], [place] [address] 14 Aug, 2014 [facility] [address] [id number] [address] [place] [address], [place] [address] Aug, [facility] [address] [id number] [address] [place] [address], [place] [address] Aug, [facility] [address] [id number] [address] [place] [address], [place] [address] Aug, [facility] [address] [id number] [address] [place] [address], [place] [address] Jul, [facility] [address] [id number] [address] [place] [address], [place] [address] 29 Jul, 2014 [facility] [address] [id number] [address] [place] [address], [place] [address] 24 Jul, 2014 [facility] [address] [id number] [address] [place] [address], [place] [address] 24 Jul, 2014 [facility] [address] [id number] [address] [place] [address], [place] [address] 15 Jul, 2014 [facility] [address] [id number] [address] [place] [address], [place] [address] 15 Jul, 2014 [facility] [address] [id number] [address] [place] [address], [place] [address] 27 Jun, 2013 [facility] [address] [id number] [address] [place] [address], [place] [address] 27 Jun, 2013 [facility] [address] [id number] [address] [place] [address], [place] [address] 26 Jun, 2013 [facility] [address] [id number] [address] [place] [address], [place] [address] 26 Jun, 2013 [facility] [address] [id number] [address] [place] [address], [place] [address] 26 Jun, 2013 [facility] [address] [id number] [address] [place] [address], [place] [address] 26 Sep, 2013 [facility] [address] [id number] [address] [place] [address], [place] [address] 16 Sep, 2013 [facility] [address] [id number] [address] [place] [address], [place] [address] 16 Sep, 2013 [facility] [address] [id number] [address] [place] [address], [place] [address] 16 Sep, 2013 [facility] [address] [id number] [address] [place] [address], [place] [address] 16 Sep, 2013 [facility] [address] [id number] [address] [place] [address], [place] [address] Jun, [facility] [address] [id number] [address] [place] [address], [place] [address] May, [facility] [address] [id number] [address] [place] [address], [place] [address] May, [facility] [address] [id number] [address] [place] [address], [place] [address] May, [facility] [address] [id number] [address] [place] [address], [place] [address] May, [facility] [address] [id number] [address] [place] [address], [place] [address] May, [facility] [address] [id number] [address] [place] [address], [place] [address] May, [facility] [address] [id number] [address] [place] [address], [place] [address] May, [facility] [address] [id number] [address] [place] [address], [place] [address] May, [facility] [address] [id number] [address] [place] [address], [place] [address] May, [facility] [address] [id number] [address] [place] [address], [place] [address] May, [facility] [address] [id number] [address] [place] [address], [place] [address] Apr, [facility] [address] [id number] [address] [place] [address], [place] [address] Apr, [facility] [address] [id number] [address] [place] [address], [place] [address] Apr, [facility] [address] [id number] [address] [place] [address], [place] [address] Apr, [facility] [address] [id number] [address] [place] [address], [place] [address] Apr, [facility] [address] [id number] [facility] [address] 24 Apr, 2014 [facility] [address] [id number] [facility] [place] [address] Apr, [facility] [address] [id number] [facility] [place] [address] Apr, [facility] [address] [id number] [address] [place] [address], [place] [address] Apr, [facility] [address] [id number] [address] [place] [address], [place] [address] Apr, [facility] [address] [id number] [address] [place] [address], [place] [address] Mar, [facility] [address] [id number] [address] [place] [address], [place] [address] Mar, [facility] [address] [id number] [address] [place] [address], [place] [address] Mar, [facility] [address] [id number] [address] [place] [address], [place] [address] 24 Mar, 2014 [facility] [address] [id number] [address] [place] [address], [place] [address] Mar, [facility] [address] [id number] [address] [place] [address], [place] [address] 18 Mar, 2014 [facility] [address] [id number] [address] [place] [address], [place] [address] 18 Mar, 2014 [facility] [address] [id number] [address] [place] [address], [place] [address] 16 Mar, 2014 [facility] [address] [id number] [address] [place] [address], [place] [address] 16 Mar, 2014 [facility] [address] [id number] [address] [place] [address], [place] [address] 13 Mar, 2014 [facility] [address] [id number] [address] [place] [address], [place] [address] Mar, [facility] [address] [id number] [facility] [address] Mar, [facility] [address] [id number] [address] [place] [address], [place] [address] Mar, [facility] [address] [id number] [address] [place] [address], [place] [address] Mar, [facility] [address] [id number] [address] [place] [address], [place] [address] Mar, [facility] [address] [id number] [address] [place] [address], [place] [address] Mar, [facility] [address] [id number] [address] [place] [address], [place] [address] Mar, [facility] [address] [id number] [address] [place] [address], [place] [address] Mar, [facility] [address] [id number] [address] [place] [address], [place] [address] Mar, [facility] [address] [id number] [address] [place] [address], [place] [address] Mar, [facility] [address] [id number] [address] [place] [address], [place] [address] February, [facility] [address] [id number] [address] [place] [address], [place] [address] February, [facility] [address] [id number] [address] [place] [address], [place] [address] February, [facility] [address] [id number] [address] [place] [address], [place] [address] February, [facility] [address] [id number] [address] [place] [address], [place] [address] February, [facility] [address] [id number] [address] [place] [address], [place] [address] February, [facility] [address] [id number] [address] [place] [address], [place] [address] February, [facility] [address] [id number] [address] [place] [address], [place] [address] February, [facility] [address] [id number] [address] [place] [address], [place] [address] February, [facility] [address] [id number] [address] [place] [address], [place] [address] February, [facility] [address] [id number] [address] [place] [address], [place] [address] February, [facility] [address] [id number] [address] [place] [address], [place] [address] February, [facility] [address] [id number] [address] [place] [address], [place] [address] February, [facility] [address] [id number] [address] [place] [address], [place] [address] February, [facility] [address] [id number] [address] [place] [address], [place] [address] February, [facility] [address] [id number] [address] [place] [address], [place] [address] February, [facility] [address] [id number] [address] [place] [address], [place] [address] February, [facility] [address] [id number] [address] [place] [address], [place] [address] February, [facility] [address] [id number] [address] [place] [address], [place] [address] February, [facility] [address] [id number] [address] [place] [address], [place] [address] February, [facility] [address] [id number] [address] [place] [address], [place] [address] February, [facility] [address] [id number] [address] [place] [address], [place] [address] Jan, [facility] [address] [id number] [address] [place] [address], [place] [address] 30 Jan, 2014 [facility] [address] [id number] [address] [place] [address], [place] [address] 18 Jan, 2014 [facility] [address] [id number] [address] [place] [address], [place] [address] 18 Jan, 2014 [facility] [address] [id number] [address] [place] [address], [place] [address] Jan, [facility] [address] [id number] [address] [place] [address], [place] [address] 18 Jan, 2014 [facility] [address] [id number] [address] [place] [address], [place] [address] Jan, [facility] [address] [id number] [address] [place] [address], [place] [address] Jan, [facility] [address] [id number] [address] [place] [address], [place] [address] 21 Dec, 2013 [facility] [address] [id number] [address] [place] [address], [place] [address] 20 Dec, 2013 [facility] [address] [id number] [address] [place] [address], [place] [address] 20 Dec, 2013 [facility] [address] [id number] [address] [place] [address], [place] [address] 19 Dec, 2013 [facility] [address] [id number] [address] [place] [address], [place] [address] 19 Dec, 2013 [facility] [address] [id number] [address] [place] [address], [place] [address] 15 Dec, 2013 [facility] [address] [id number] [address] [place] [address], [place] [address] 15 Dec, 2013 [facility] [address] [id number] [address] [place] [address], [place] [address] 11 Dec, 2013 [facility] [address] [id number] [address] [place] [address], [place] [address] Dec, [facility] [address] [id number] [address] [place] [address], [place] [address] Dec, [facility] [address] [id number] [address] [place] [address], [place] [address] Nov, [facility] [address] [id number] [address] [place] [address], [place] [address] Nov, [facility] [address] [id number] [address] [place] [address], [place] [address] Nov, [facility] [address] [id number] [address] [place] [address], [place] [address] Nov, [facility] [address] [id number] [address] [place] [address], [place] [id number] Nov, [facility] [address] [id number] [address] [place] [address], [place] [address] Oct, [facility] [address] [id number] [address] [place] [address], [place] [address] Oct, [facility] [address] [id number] [address] [place] [address], [place] [address] Oct, [facility] [address] [id number] [address] [place] [address], [place] [address] Sep, [facility] [address] [id number] [address] [place] [address], [place] [address] Sep, [facility] [address] [id number] [address] [place] [address], [place] [address] Sep, [facility] [address] [id number] [address] [place] [address], [place] [address] Sep, [facility] [address] [id number] [address] [place] [address], [place] [address] Aug, [facility] [address] [id number] [address] [place] [address], [place] [address] Aug, [facility] [address] [id number] [address] [place] [address], [place] [address] Jul, [facility] [address] [id number] [address] [place] [address], [place] [address] Jul, [facility] [address] [id number] [address] [place] [address], [place] [address] Jul, [facility] [address] [id number] [address] [place] [address], [place] [address] Jul, [facility] [address] [id number] [address] [place] [address], [place] [address] Jul, [facility] [address] [id number] [address] [place] [address], [place] [address] Jun, [facility] [address] [id number] [address] [place] [address], [place] [address] 25 Jun, 2013 [facility] [address] [id number] [address] [place] [address], [place] [address] 19 Jun, 2013 [facility] [address] [id number] [address] [place] [address], [place] [address] 18 Jun, 2013 [facility] [address] [id number] [address] [place] [address], [place] [address] 16 Jun, 2013 [facility] [address] [id number] [address] [place] [address], [place] [address] 12 Jun, 2013 [facility] [address] [id number] [address] [place] [address], [place] [address] 11 Jun, 2013 [facility] [address] [id number] [address] [place] [address], [place] [address] 30 May, 2013 [facility] [address] [id number] [address] [place] [address], [place] [address] May, [facility] [address] [id number] [address] [place] [address], [place] [address] Apr, [facility] [address] [id number] [address] [place] [address], [place] [address] Apr, [facility] [address] [id number] [address] [place] [address], [place] [address] Apr, [facility] [address] [id number] [address] [place] [address], [place] [address] Mar, [facility] [address] [id number] [address] [place] [address], [place] [address] Mar, [facility] [address] [id number] [address] [place] [address], [place] [address] February, [facility] [address] [id number] [address] [place] [address], [place] [address] February, [facility] [address] [id number] [address] [place] [address], [place] [address] February, [facility] [address] [id number] [address] [place] [address], [place] [address] February, [facility] [address] [id number] [address] [place] [address], [place] [address] Jan, [facility] [address] [id number] [address] [place] [address], [place] [address] Jan, [facility] [address] [id number] [address] [place] [address], [place] [address] Jan, [facility] [address] [id number] [address] [place] [address], [place] [address] Dec, [facility] [address] [id number] [address] [place] [address], [place] [address] Dec, [facility] [address] [id number] [address] [place] [address], [place] [address] Dec, [facility] [address] [id number] [address] [place] [address], [place] [address] Dec, [facility] [address] [id number] [address] [place] [address], [place] [address] Nov, [facility] [address] [id number] [address] [place] [address], [place] [address] 13 Nov, 2012 [facility] [address] [id number] [address] [place] [address], [place] [address] Oct, [facility] [address] [id number] [address] [place] [address], [place] [address] Oct, [facility] [address] [id number] [address] [place] [address], [place] [address] Oct, [facility] [address] [id number] [address] [place] [address], [place] [address] Oct, [facility] [address] [id number] [address] [place] [address], [place] [address] Aug, [facility] [address] [id number] [address] [place] [address], [place] [address] Aug, [facility] [address] [id number] [address] [place] [address], [place] [address] Jun, [facility] [address] [id number] [address] [place] [address], [place] [address] May, [facility] [address] [id number] [address] [place] [address], [place] [address] May, [facility] [address] [id number] [address] [place] [address], [place] [address] Apr, [facility] [address] [id number] [address] [place] [address], [place] [address] Apr, [facility] [address] [id number] [address] [place] [address], [place] [address] Apr, [facility] [address] [id number] [address] [place] [address], [place] [address] Mar, [facility] [address] [id number] [address] [place] [address], [place] [address] Mar, [facility] [address] [id number] [address] [place] [address], [place] [address] Mar, [facility] [address] [id number] [address] [place] [address], [place] [address] Mar, [facility] [address] [id number] [address] [place] [address], [place] [address] Mar, [facility] [address] [id number] [address] [place] [address], [place] [address] February, [facility] [address] [id number] [address] [place] [address], [place] [address] February, [facility] [address] [id number] [address] [place] [address], [place] [address] February, [facility] [address] [id number] [address] [place] [address], [place] [address] February, [facility] [address] [id number] [address] [place] [address], [place] [address] February, [facility] [address] [id number] [address] [place] [address], [place] [address] February, [facility] [address] [id number] [address] [place] [address], [place] [address] February, [facility] [address] [id number] [address] [place] [address], [place] [address] Jan, [facility] [address] [id number] [address] [place] [address], [place] [address] 18 Jan, 2012 [facility] [address] [id number] [address] [place] [address], [place] [address] 17 Jan, 2012 [facility] [address] [id number] [address] [place] [address], [place] [address] 13 Jan, 2012 [facility] [address] [id number] [address] [place] [address], [place] [address] 10 Jan, 2012 [facility] [address] [id number] [address] [place] [address], [place] [address] 04 Jan, 2012 [facility] [address] [id number] [address] [place] [address], [place] [address] 30 Dec, 2011 [facility] [address] [id number] [address] [place] [address], [place] [address] 24 Dec, 2011 [facility] [address] [id number] [address] [place] [address], [place] [address] 20 Dec, 2011 [facility] [address] [id number] [address] [place] [address], [place] [address] 13 Dec, 2011 [facility] [address] [id number] [address] [place] [address], [place] [address] 06 Dec, 2011 [facility] [address] [id number] [address] [place] [address], [place] [address] 28 Nov, 2011 [facility] [address] [id number] [address] [place] [address], [place] [address] 27 Nov, 2011 [facility] [address] [id number] [address] [place] [address], [place] [address] 25 Nov, 2011 [facility] [address] [id number] [address] [place] [address], [place] [address] 14 Nov, 2011 [facility] [address] [id number] [address] [place] [address], [place] [address] Nov, [facility] [address] [id number] [address] [place] [address], [place] [address] Nov, [facility] [address] [id number] [address] [place] [address], [place] [address] Oct, [facility] [address] [id number] [address] [place] [address], [place] [address] Oct, [facility] [address] [id number] [address] [place] [address], [place] [address] Oct, [facility] [address] [id number] [address] [place] [address], [place] [address] Oct, [facility] [address] [id number] [address] [place] [address], [place] [address] Oct, [facility] [address] [id number] [address] [place] [address], [place] [address] Sep, [facility] [address] [id number] [address] [place] [address], [place] [address] Sep, [facility] [address] [id number] [address] [place] [address], [place] [address] Sep, [facility] [address] [id number] [address] [place] [address], [place] [address] 14 Sep, 2011 [facility] [address] [id number] [address] [place] [address], [place] [address] 14 Sep, 2011 [facility] [address] [id number] [address] [place] [address], [place] [address] Sep, [facility] [address] [id number] [address] [place] [address], [place] [address] Sep, [facility] [address] [id number] [address] [place] [address], [place] [address] Sep, [facility] [address] [id number] [address] [place] [address], [place] [address] Sep, [facility] [address] [id number] [address] [place] [address], [place] [address] Aug, [facility] [address] [id number] [address] [place] [address], [place] [address] Aug, [facility] [address] [id number] [address] [place] [address] Aug, [facility] [address] [id number] [address] [place] [address], [place] [address] Aug, [facility] [address] [id number] [address] [place] [address], [place] [address] Aug, [facility] [address] [id number] [address] [place] [address], [place] [address] Aug, [facility] [address] [id number] [address] [place] [address] Aug, [facility] [address] [id number] [address] [place] [address], [place] [address] 16 Aug, 2011 [facility] [address] [id number] [address] [place] [id number] Aug, [facility] [address] [id number] [address] [place] [address], [place] [address] Aug, [facility] [address] [id number] [address] [place] [address], [place] [address] Aug, [facility] [address] [id number] [address] [place] [address], [place] [address] Aug, [facility] [address] [id number] [address] [place] [address], [place] [address] Jul, [facility] [address] [id number] [address] [place] [id number] Jul, [facility] [address] [id number] [address] [place] [address], [place] [address] 24 Jul, 2011 [facility] [address] [id number] [address] [place] [address] Jul, [facility] [address] [id number] [address] [place] [id number] Jul, [facility] [address] [id number] [address] [place] [id number] Jul, [facility] [address] [id number] [address] [place] [id number] 18 Jul, 2011 [facility] [address] [id number] [address] [place] [id number] 11 Jul, 2011 [facility] [address] [id number] [address] [place] [id number] Jul, [facility] [address] [id number] [address] [place] [id number] 10 Jul, 2011 [facility] [address] [id number] [address] [place] [id number] Nov, [facility] [address] [facility] [id number] [address] [place] [id number] Aug, [facility] [address] [facility] [id number] [address] [place] [id number] Aug, [facility] [address] [facility] [id number] [address] [place] [id number] Aug, [facility] [address] [facility] [id number] [address] [place] [id number] Aug, [facility] [address] [facility] [id number] [address] [place] [id number] Jul, IMMUNIZATIONS No Known Immunizations SOCIAL HISTORY [...]
--- OUTSIDE RECORDS SUMMARY | 2020-04-04 02:07 | XMS REPORT ---
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 726575555 Problem Disorganized schizophrenia, 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 17088265 Problem Paranoid schizophrenia F20.0 Active 52591996 Problem Borderline personality disorder F60.3 Active 49388927 Problem Paranoid schizophrenia, unspecified condition 295.30 Active 99378554 Problem Schizoaffective disorder, depressive type F25.1 Active 99871628 Problem Bipolar disorder, unspecified 296.80 Active 09910035 Problem Schizoaffective disorder, unspecified F25.9 Active 98642970 Problem Attention deficit hyperactivity disorder (ADHD), inattentive type, 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 21375487 Problem Posttraumatic stress disorder F43.10 Active 83455363 Problem High risk medication use Z79.899 Activ e [id number] ALLERGIES No Information ENCOUNTERS Encounter Location Date Diagnosis [facility] [address] [facility] [id number] [address] [place] [phone] May, [facility] [address] [facility] [id number] [address] [place] [phone] Mar, Paranoid schizophrenia F20.0 [facility] [address] [facility] [id number] [address] [place] [phone] Mar, Paranoid schizophrenia F20.0 ; Posttraumatic stress disorder F43.10 ; Attention deficit hyperactivity disorder (ADHD), inattentive type, 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 and Borderline personality disorder F60.3 [facility] [address] [facility] [id number] [address] [phone] February, Paranoid schizophrenia F20.0 [facility] [address] [facility] [id number] [address] [place] [phone] Jan, Paranoid schizophrenia F20.0 ; Posttraumatic stress disorder F43.10 ; Attention deficit hyperactivity disorder (ADHD), inattentive type, 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 and Borderline personality disorder F60.3 [facility] [address] [facility] [id number] [address] [place] [phone] Dec, Paranoid schizophrenia F20.0 ; Posttraumatic stress disorder F43.10 ; Attention deficit hyperactivity disorder (ADHD), inattentive type, 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 and Borderline personality disorder F60.3 [facility] [address] [facility] [id number] [address] [phone] Dec, Paranoid schizophrenia F20.0 ; Posttraumatic stress disorder F43.10 ; Attention deficit hyperactivity disorder (ADHD), inattentive type, 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 and Borderline personality disorder F60.3 [facility] [address] [facility] [id number] [address] [place] [phone] Oct, Paranoid schizophrenia F20.0 ; Posttraumatic stress disorder F43.10 ; Attention deficit hyperactivity disorder (ADHD), inattentive type, 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 and Borderline personality disorder F60.3 [facility] [address] [facility] [id number] [address] [phone] Oct, Paranoid schizophrenia F20.0 ; Posttraumatic stress disorder F43.10 ; Attention deficit hyperactivity disorder (ADHD), inattentive type, 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 and Borderline personality disorder F60.3 [facility] [address] [facility] [id number] [address] [place] [phone] Aug, [facility] [address] [facility] [id number] [address] [place] [phone] Aug, Paranoid schizophrenia F20.0 ; Posttraumatic stress disorder F43.10 ; Attention deficit hyperactivity disorder (ADHD), inattentive type, 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 and Borderline personality disorder F60.3 [facility] [address] [facility] [id number] [address] [place] [phone] Jul, Dry skin dermatitis L85.3 [facility] [address] [id number] [address] [place] [phone] Jul, [facility] [address] [facility] [id number] [address] [place] [phone] Jul, Paranoid schizophrenia F20.0 [facility] [address] [id number] [address] [place] [phone] May, Paranoid schizophrenia F20.0 ; Posttraumatic stress disorder F43.10 ; Attention deficit hyperactivity disorder (ADHD), inattentive type, 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 and Borderline personality disorder F60.3 [facility] [address] [facility] [id number] [address] [place] [phone] May, [facility] [address] [facility] [id number] [address] [place] [phone] May, Paranoid schizophrenia F20.0 [facility] [address] [facility] [id number] [address] [place] [phone] May, Paranoid schizophrenia F20.0 ; Posttraumatic stress disorder F43.10 ; Attention deficit hyperactivity disorder (ADHD), inattentive type, 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 and Borderline personality disorder F60.3 [facility] [address] [id number] [address] [place] [phone] Apr, [facility] [address] [facility] [id number] [address] [place] [phone] Apr, Paranoid schizophrenia F20.0 ; Posttraumatic stress disorder F43.10 ; Attention deficit hyperactivity disorder (ADHD), inattentive type, 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 and Borderline personality disorder F60.3 [facility] [address] [facility] [id number] [address] [place] [phone] Apr, [facility] [address] [id number] [address] [place] [phone] Apr, Schizoaffective disorder, de pressive type F25.1 and Borderline personality disorder F60.3 [facility] [address] [id number] [address] [place] [phone] Apr, Paranoid schizophrenia F20.0 ; Posttraumatic stress disorder F43.10 ; Attention deficit hyperactivity disorder (ADHD), inattentive type, 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 and Borderline personality disorder F60.3 [facility] [address] [id number] [address] [place] [phone] Apr, [facility] [address] [id number] [address] [place] [phone] Apr, Paranoid schizophrenia F20.0 ; Posttraumatic stress disorder F43.10 ; Attention deficit hyperactivity disorder (ADHD), inattentive type, 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 and Borderline personality disorder F60.3 [facility] [address] [id number] [address] [place] [phone] Apr, [facility] [address] [id number] [address] [place] [phone] Mar, Paranoid schizophrenia F20.0 [facility] [address] [id number] [address] [place] [phone] Mar, [facility] [address] [id number] [address] [place] [phone] Mar, Paranoid schizophrenia F20.0 ; Posttraumatic stress disorder F43.10 ; Attention deficit hyperactivity disorder (ADHD), inattentive type, 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 and Borderline personality disorder F60.3 [facility] [address] [id number] [address] [place] [phone] February, Paranoid schizophrenia F20.0 [facility] [address] [id number] [address] [place] [phone] February, Paranoid schizophrenia F20.0 ; Posttraumatic stress disorder F43.10 ; Attention deficit hyperactivity disorder (ADHD), inattentive type, 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 and Borderline personality disorder F60.3 [facility] [address] [facility] [id number] [address] [place] [phone] February, Paranoid schizophrenia F20.0 ; Posttraumatic stress disorder F43.10 ; Attention deficit hyperactivity disorder (ADHD), inattentive type, 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 and Borderline personality disorder F60.3 [facility] [address] [facility] [id number] [address] [place] [phone] February, [facility] [address] [facility] [id number] [address] [place] [phone] February, Paranoid schizophrenia F20.0 [facility] [address] [facility] [id number] [address] [place] [phone] February, Paranoid schizophrenia F20.0 [facility] [address] [facility] [id number] [address] [place] [phone] February, Paranoid schizophrenia F20.0 ; Posttraumatic stress disorder F43.10 ; Attention deficit hyperactivity disorder (ADHD), inattentive type, 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 and Borderline personality disorder F60.3 [facility] [address] [facility] [id number] [address] [place] [phone] Jan, Paranoid schizophrenia F20.0 ; Posttraumatic stress disorder F43.10 ; Attention deficit hyperactivity disorder (ADHD), inattentive type, 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 and Borderline personality disorder F60.3 [facility] [address] [facility] [id number] [address] [place] [id number] Jan, Paranoid schizophrenia F20.0 [facility] [address] [facility] [id number] [address] [place] [phone] Jan, Paranoid schizophrenia F20.0 [facility] [address] [facility] [id number] [address] [place] [phone] Jan, Paranoid schizophrenia F20.0 ; Posttraumatic stress disorder F43.10 ; Attention deficit hyperactivity disorder (ADHD), inattentive type, 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 and Borderline personality disorder F60.3 [facility] [address] [id number] [address] [place] [phone] Dec, [facility] [address] [id number] [address] [place] [phone] Nov, Paranoid schizophrenia F20.0 ; Posttraumatic stress disorder F43.10 ; Attention deficit hyperactivity disorder (ADHD), inattentive type, 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 and Borderline personality disorder F60.3 [facility] [address] [id number] [address] [place] [phone] Nov, [facility] [address] [id number] [address] [place] [phone] Oct, Paranoid schizophrenia F20.0 [facility] [address] [id number] [address] [place] [phone] Oct, Paranoid schizophrenia F20.0 ; Posttraumatic stress disorder F43.10 ; Attention deficit hyperactivity disorder (ADHD), inattentive type, 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 ; Borderline personality disorder F60.3 and Other fdc (current) drug therapy Z79.899 [facility] [address] [id number] [address] [place] [phone] Oct, [facility] [address] [id number] [address] [place] [phone] Oct, [facility] [address] [id number] [address] [place] [phone] Sep, [facility] [address] [id number] [address] [place] [phone] Sep, Paranoid schizophrenia F20.0 ; Posttraumatic stress disorder F43.10 ; Attention deficit hyperactivity disorder (ADHD), inattentive type, 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 and Borderline personality disorder F60.3 [facility] [address] [id number] [address] [place] [phone] Sep, Paranoid schizophrenia F20.0 [facility] [address] [id number] [address] [place] [phone] Aug, Paranoid schizophrenia F20.0 ; Posttraumatic stress disorder F43.10 ; Attention deficit hyperactivity disorder (ADHD), inattentive type, 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 and Borderline personality disorder F60.3 [facility] [address] [facility] [id number] [address] [place] [phone] Aug, Paranoid schizophrenia F20.0 ; Posttraumatic stress disorder F43.10 ; Attention deficit hyperactivity disorder (ADHD), inattentive type, 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 and Borderline personality disorder F60.3 [facility] [address] [facility] [id number] [address] [place] [phone] Aug, [facility] [address] [facility] [id number] [address] [place] [phone] Jul, Paranoid schizophrenia F20.0 ; Posttraumatic stress disorder F43.10 ; Attention deficit hyperactivity disorder (ADHD), inattentive type, 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 and Borderline personality disorder F60.3 [facility] [address] [id number] [address] [place] [phone] Jul, Paranoid schizophrenia F20.0 [facility] [address] [facility] [id number] [address] [place] [phone] Jul, Paranoid schizophrenia F20.0 ; Posttraumatic stress disorder F43.10 ; Attention deficit hyperactivity disorder (ADHD), inattentive type, 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 and Borderline personality disorder F60.3 [facility] [address] [facility] [id number] [address] [place] [phone] Jun, Paranoid schizophrenia F20.0 ; Posttraumatic stress disorder F43.10 ; Attention deficit hyperactivity disorder (ADHD), inattentive type, 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 and Borderline personality disorder F60.3 [facility] [address] [facility] [id number] [address] [place] [phone] May, Other fdc (current) dr gabriel parra Z79.899 [facility] [address] [place] [id number] [address] [place] [phone] May, [facility] [address] [id number] [address] [address] May, [facility] [address] [id number] [address] [place] [phone] May, Attention deficit hyperactiv ity disorder (ADHD), inattentive type, mild F90.0 [facility] [address] [id number] [address] [place] [phone] May, [facility] [address] [facility] [id number] [address] [place] [phone] May, Attention deficit hyperactiv ity disorder (ADHD), inattentive type, mild F90.0 [facility] [address] [id number] [address] [place] [phone] May, Paranoid schizophrenia F20.0 ; Posttraumatic stress disorder F43.10 ; Attention deficit hyperactivity disorder (ADHD), inattentive type, 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 and 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 Z79.899 [facility] [address] [facility] [id number] [address] [place] [phone] Apr, Paranoid schizophrenia F20.0 [facility] [address] [facility] [id number] [address] [place] [phone] Apr, Paranoid schizophrenia F20.0 ; Posttraumatic stress disorder F43.10 and Attention deficit hyperactivity disorder (ADHD), inattentive type, 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 [facility] [address] [facility] [id number] [address] [place] [phone] February, [facility] [address] [facility] [id number] [address] [place] [phone] February, Paranoid schizophrenia F20.0 ; Posttraumatic stress disorder F43.10 and Attention deficit hyperactivity disorder (ADHD), inattentive type, 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 [facility] [address] [id number] [address] [place] [phone] February, Paranoid schizophrenia F20.0 ; Posttraumatic stress disorder F43.10 and Attention deficit hyperactivity disorder (ADHD), inattentive type, 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 [facility] [address] [id number] [address] [place] [phone] Jan, Paranoid schizophrenia F20.0 ; Posttraumatic stress disorder F43.10 and Attention deficit hyperactivity disorder (ADHD), inattentive type, 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 [facility] [address] [id number] [address] [place] [address] [id number] Dec, Dental examination Z01.20 [facility] [address] [id number] [address] [place] [address] [id number] Nov, Dental examination Z01.20 [facility] [address] [id number] [address] [place] [address] [id number] Nov, Dental examination Z01.20 [facility] [address] [id number] [address] [place] [address] [id number] Nov, Dental caries K02.9 [facility] [address] [id number] [address] [place] [phone] Nov, High risk medication use Z79 .899 [facility] [address] [id number] [address] [place] [phone] Nov, Paranoid schizophrenia F20.0 ; Posttraumatic stress disorder F43.10 ; Attention deficit hyperactivity disorder (ADHD), inattentive type, 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 and Borderline personality disorder in adult F60.3 [facility] [address] [id number] [address] [place] [address] [id number] Oct, Dental caries K02.9 [facility] [address] [id number] [address] [place] [phone] Sep, Paranoid schizophrenia F20.0 ; Posttraumatic stress disorder F43.10 and Attention deficit hyperactivity disorder (ADHD), inattentive type, 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 [facility] [address] [id number] [address] [place] [phone] Aug, Paranoid schizophrenia F20.0 ; Posttraumatic stress disorder F43.10 and Attention deficit hyperactivity disorder (ADHD), inattentive type, 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 [facility] [address] [id number] [address] [place] [phone] Aug, Strep throat J02.0 and Cough R05 [facility] [address] [id number] [address] [place] [phone] Aug, [facility] [address] [id number] [address] [place] [phone] Jul, Paranoid schizophrenia F20.0 ; Posttraumatic stress disorder F43.10 and Attention deficit hyperactivity disorder (ADHD), inattentive type, 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 [facility] [address] [id number] [address] [place] [phone] Jul, [facility] [address] [id number] [address] [place] [phone] Jun, Paranoid schizophrenia F20.0 ; Posttraumatic stress disorder F43.10 and Attention deficit hyperactivity disorder (ADHD), inattentive type, 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 [facility] [address] [id number] [address] [place] [address] [id number] Jun, Dental examination Z01.20 [facility] [address] [id number] [address] [place] [phone] Jun, [facility] [address] [id number] [address] [place] [phone] May, Paranoid schizophrenia F20.0 [facility] [address] [id number] [address] [place] [phone] May, Paranoid schizophrenia F20.0 ; Posttraumatic stress disorder F43.10 and Attention deficit hyperactivity disorder (ADHD), inattentive type, 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 [facility] [address] [id number] [address] [place] [phone] May, [facility] [address] [id number] [address] [place] [phone] May, Paranoid schizophrenia F20.0 [facility] [address] [id number] [address] [place] [phone] May, [facility] [address] [id number] [address] [place] [phone] May, Paranoid schizophrenia F20.0 [facility] [address] [id number] [address] [place] [phone] May, Schizoaffective disorder, un specified F25.9 [facility] [address] [id number] [address] [place] [phone] May, Schizoaffective disorder, un specified F25.9 [facility] [address] [id number] [address] [place] [phone] May, [facility] [address] [id number] [address] [place] [phone] May, Paranoid schizophrenia F20.0 [facility] [address] [id number] [address] [place] [phone] May, Paranoid schizophrenia F20.0 ; Posttraumatic stress disorder F43.10 and Attention deficit hyperactivity disorder (ADHD), inattentive type, 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 [facility] [address] [id number] [address] [place] [phone] Mar, [facility] [address] [id number] [address] [place] [phone] Mar, Paranoid schizophrenia F20.0 ; Posttraumatic stress disorder F43.10 and Attention deficit hyperactivity disorder (ADHD), inattentive type, 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 [facility] [address] [id number] [address] [place] [phone] Mar, Paranoid schizophrenia F20.0 [facility] [address] [id number] [address] [place] [phone] Mar, Paranoid schizophrenia F20.0 ; Attention deficit hyperactivity disorder (ADHD), inattentive type, 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 and Posttraumatic stress disorder F43.10 [facility] [address] [id number] [address] [place] [phone] Mar, [facility] [address] [id number] [address] [place] [phone] Mar, Paranoid schizophrenia F20.0 ; Posttraumatic stress disorder F43.10 and Attention deficit hyperactivity disorder (ADHD), inattentive type, 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 [facility] [address] [id number] [address] [place] [id number] February, [facility] [address] [id number] [address] [place] [id number] February, [facility] [address] [id number] [address] [place] [id number] February, [facility] [facility] [address] [id number] [address] [place] [address] February, [facility] [address] [id number] [address] [place] [address] Jan, Paranoid schizophrenia F20.0 [facility] [address] [id number] [address] [place] [address] [id number] Jan, Dental examination Z01.20 [facility] [address] [id number] [address] [place] [address] [id number] Jan, Dental caries K02.9 [facility] [address] [id number] [address] [place] [address] [id number] Jan, Dental examination Z01.20 [facility] [address] [id number] [address] [place] [address] [id number] Dec, Encounter for dental examina tion Z01.20 [facility] [address] [id number] [address] [place] [address] Dec, Paranoid schizophrenia F20.0 [facility] [address] [id number] [address] [place] [address] [id number] Dec, Dental examination Z01.20 [facility] [address] [id number] [address] [place] [address] Dec, [facility] [address] [id number] [address] [place] [address] Dec, Paranoid schizophrenia F20.0 ; Posttraumatic stress disorder F43.10 and Attention deficit hyperactivity disorder (ADHD), inattentive type, 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 [facility] [address] [id number] [address] [place] [address] Nov, Schizoaffective disorder, un specified F25.9 [facility] [address] [id number] [address] [place] [phone] Oct, Paranoid schizophrenia F20.0 [facility] [address] [id number] [address] [place] [address] Oct, [facility] [address] [id number] [address] [place] [address] Sep, Paranoid schizophrenia F20.0 ; Posttraumatic stress disorder F43.10 and Attention deficit hyperactivity disorder (ADHD), inattentive type, 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 [facility] [address] [id number] [address] [place] [address] Sep, [facility] [address] [id number] [address] [place] [phone] Sep, Paranoid schizophrenia F20.0 ; Posttraumatic stress disorder F43.10 and Attention deficit hyperactivity disorder (ADHD), inattentive type, 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 [facility] [address] [id number] [address] [place] [address] Aug, Paranoid schizophrenia F20.0 [facility] [address] [id number] [address] [place] [address] Aug, [facility] [address] [id number] [address] [place] [id number] Aug, Posttraumatic stress disorde r F43.10 ; Paranoid schizophrenia F20.0 and Attention deficit hyperactivity disorder (ADHD), inattentive type, 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 [facility] [address] [id number] [address] [place] [phone] Jul, Bipolar disorder, unspecifie d F31.9 [facility] [address] [id number] [address] [place] [address] Jul, [facility] [address] [id number] [address] [place] [phone] Jun, [facility] [address] [id number] [address] [place] [id number] Jun, Schizoaffective disorder, ch ronic 295.72 ; Posttraumatic stress disorder 309.81 and Attention deficit disorder of childhood without mention of hyperactivity 314.00 [facility] [address] [id number] [address] [place] [id number] May, [facility] [address] [facility] [id number] [address] [place] [phone] May, [facility] [address] [facility] [id number] [address] [place] [address] May, Schizoaffective disorder, ch ronic 295.72 ; Posttraumatic stress disorder 309.81 ; Attention deficit disorder of childhood without mention of hyperactivity 314.00 and Bipolar disorder, unspecified 296.80 [facility] [address] [facility] [id number] [address] [place] [phone] Apr, Schizoaffective disorder, ch ronic 295.72 [facility] [address] [facility] [id number] [address] [place] [phone] Apr, [facility] [address] [id number] [address] [place] [address] Apr, Schizoaffective disorder, ch ronic 295.72 ; Posttraumatic stress disorder 309.81 and Attention deficit disorder of childhood without mention of hyperactivity 314.00 [facility] [address] [id number] [address] [place] [address] Mar, Disorganized schizophrenia, 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 [facility] [address] [id number] [address] [place] [address] Mar, [facility] [address] [id number] [address] [place] [phone] Mar, [facility] [address] [id number] [address] [place] [address] Mar, [facility] [address] [id number] [address] [place] [id number] Mar, [facility] [address] [id number] [address] [place] [address] February, Schizoaffective disorder, ch ronic 295.72 [facility] [address] [id number] [address] [place] [id number] February, [facility] [address] [id number] [address] [place] [address] February, Attention 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 ; Posttraumatic stress disorder 309.81 and Schizoaffective disorder, chronic 295.72 [facility] [address] [id number] [address] [place] [phone] 29 Jan, 2015 [facility] [address] [id number] [address] [place] [id number] 14 Jan, 2015 [facility] [address] [id number] [address] [place] [phone] Jan, [facility] [address] [id number] [address] [place] [id number] Dec, [facility] [address] [id number] [address] [place] [id number] Dec, [facility] [address] [id number] [address] [place] [id number] Dec, [facility] [address] [id number] [address] [place] [id number] Dec, [facility] [address] [id number] [address] [place] [phone] Dec, [facility] [address] [id number] [facility] [place] [address] Dec, [facility] [address] [id number] [address] [place] [address], [place] [address] Dec, [facility] [address] [id number] [address] [place] [address], [place] [address] Dec, [facility] [address] [id number] [address] [place] [address], [place] [address] Nov, [facility] [address] [id number] [address] [place] [address], [place] [address] Nov, [facility] [address] [id number] [address] [place] [address], [place] [address] Nov, [facility] [address] [id number] [address] [place] [address], [place] [address] Nov, [facility] [address] [id number] [address] [place] [address], [place] [address] Nov, [facility] [address] [id number] [address] [place] [address], [place] [address] Nov, [facility] [address] [id number] [address] [place] [address], [place] [address] Nov, [facility] [address] [id number] [address] [place] [address], [place] [address] Nov, [facility] [address] [id number] [address] [place] [address], [place] [address] Nov, [facility] [address] [id number] [address] [place] [address], [place] [address] Nov, [facility] [address] [id number] [address] [place] [address], [place] [address] Oct, [facility] [address] [id number] [address] [place] [address], [place] [address] Oct, [facility] [address] [id number] [address] [place] [address], [place] [address] 28 Oct, 2014 [facility] [address] [id number] [address] [place] [address], [place] [address] Oct, [facility] [address] [id number] [address] [place] [address], [place] [address] 15 Oct, 2014 [facility] [address] [id number] [address] [place] [address], [place] [address] Oct, [facility] [address] [id number] [address] [place] [address], [place] [address] Oct, [facility] [address] [id number] [address] [place] [address], [place] [address] 17 Sep, 2014 [facility] [address] [id number] [address] [place] [address], [place] [address] 17 Sep, 2014 [facility] [address] [id number] [address] [place] [address], [place] [address] Sep, [facility] [address] [id number] [address] [place] [address], [place] [address] Sep, [facility] [address] [id number] [address] [place] [address], [place] [address] Aug, [facility] [address] [id number] [address] [place] [address], [place] [address] Aug, [facility] [address] [id number] [address] [place] [address], [place] [address] 14 Aug, 2014 [facility] [address] [id number] [address] [place] [address], [place] [address] Aug, [facility] [address] [id number] [address] [place] [address], [place] [address] Aug, [facility] [address] [id number] [address] [place] [address], [place] [address] Aug, [facility] [address] [id number] [address] [place] [address], [place] [address] Jul, [facility] [address] [id number] [address] [place] [address], [place] [address] 29 Jul, 2014 [facility] [address] [id number] [address] [place] [address], [place] [address] 24 Jul, 2014 [facility] [address] [id number] [address] [place] [address], [place] [address] 24 Jul, 2014 [facility] [address] [id number] [address] [place] [address], [place] [address] 15 Jul, 2014 [facility] [address] [id number] [address] [place] [address], [place] [address] 15 Jul, 2014 [facility] [address] [id number] [address] [place] [address], [place] [address] 27 Jun, 2013 [facility] [address] [id number] [address] [place] [address], [place] [address] 27 Jun, 2013 [facility] [address] [id number] [address] [place] [address], [place] [address] 26 Jun, 2013 [facility] [address] [id number] [address] [place] [address], [place] [address] 26 Jun, 2013 [facility] [address] [id number] [address] [place] [address], [place] [address] 26 Jun, 2013 [facility] [address] [id number] [address] [place] [address], [place] [address] 26 Sep, 2013 [facility] [address] [id number] [address] [place] [address], [place] [address] 16 Sep, 2013 [facility] [address] [id number] [address] [place] [address], [place] [address] 16 Sep, 2013 [facility] [address] [id number] [address] [place] [address], [place] [address] 16 Sep, 2013 [facility] [address] [id number] [address] [place] [address], [place] [address] 16 Sep, 2013 [facility] [address] [id number] [address] [place] [address], [place] [address] Jun, [facility] [address] [id number] [address] [place] [address], [place] [address] May, [facility] [address] [id number] [address] [place] [address], [place] [address] May, [facility] [address] [id number] [address] [place] [address], [place] [address] May, [facility] [address] [id number] [address] [place] [address], [place] [address] May, [facility] [address] [id number] [address] [place] [address], [place] [address] May, [facility] [address] [id number] [address] [place] [address], [place] [address] May, [facility] [address] [id number] [address] [place] [address], [place] [address] May, [facility] [address] [id number] [address] [place] [address], [place] [address] May, [facility] [address] [id number] [address] [place] [address], [place] [address] May, [facility] [address] [id number] [address] [place] [address], [place] [address] May, [facility] [address] [id number] [address] [place] [address], [place] [address] Apr, [facility] [address] [id number] [address] [place] [address], [place] [address] Apr, [facility] [address] [id number] [address] [place] [address], [place] [address] Apr, [facility] [address] [id number] [address] [place] [address], [place] [address] Apr, [facility] [address] [id number] [address] [place] [address], [place] [address] Apr, [facility] [address] [id number] [facility] [place] [address] 24 Apr, 2014 [facility] [address] [id number] [facility] [place] [address] Apr, [facility] [address] [id number] [facility] [place] [address] Apr, [facility] [address] [id number] [address] [place] [address], [place] [address] Apr, [facility] [address] [id number] [address] [place] [address], [place] [address] Apr, [facility] [address] [id number] [address] [place] [address], [place] [address] Mar, [facility] [address] [id number] [address] [place] [address], [place] [address] Mar, [facility] [address] [id number] [address] [place] [address], [place] [address] Mar, [facility] [address] [id number] [address] [place] [address], [place] [address] 24 Mar, 2014 [facility] [address] [id number] [address] [place] [address], [place] [address] Mar, [facility] [address] [id number] [address] [place] [address], [place] [address] 18 Mar, 2014 [facility] [address] [id number] [address] [place] [address], [place] [address] 18 Mar, 2014 [facility] [address] [id number] [address] [place] [address], [place] [address] 16 Mar, 2014 [facility] [address] [id number] [address] [place] [address], [place] [address] 16 Mar, 2014 [facility] [address] [id number] [address] [place] [address], [place] [address] 13 Mar, 2014 [facility] [address] [id number] [address] [place] [address], [place] [address] Mar, [facility] [address] [id number] [facility] [place] [address] Mar, [facility] [address] [id number] [address] [place] [address], [place] [address] Mar, [facility] [address] [id number] [address] [place] [address], [place] [address] Mar, [facility] [address] [id number] [address] [place] [address], [place] [address] Mar, [facility] [address] [id number] [address] [place] [address], [place] [address] Mar, [facility] [address] [id number] [address] [place] [address], [place] [address] Mar, [facility] [address] [id number] [address] [place] [address], [place] [address] Mar, [facility] [address] [id number] [address] [place] [address], [place] [address] Mar, [facility] [address] [id number] [address] [place] [address], [place] [address] Mar, [facility] [address] [id number] [address] [place] [address], [place] [address] February, [facility] [address] [id number] [address] [place] [address], [place] [address] February, [facility] [address] [id number] [address] [place] [address], [place] [address] February, [facility] [address] [id number] [address] [place] [address], [place] [address] February, [facility] [address] [id number] [address] [place] [address], [place] [address] February, [facility] [address] [id number] [address] [place] [address], [place] [address] February, [facility] [address] [id number] [address] [place] [address], [place] [address] February, [facility] [address] [id number] [address] [place] [address], [place] [address] February, [facility] [address] [id number] [address] [place] [address], [place] [address] February, [facility] [address] [id number] [address] [place] [address], [place] [address] February, [facility] [address] [id number] [address] [place] [address], [place] [address] February, [facility] [address] [id number] [address] [place] [address], [place] [address] February, [facility] [address] [id number] [address] [place] [address], [place] [address] February, [facility] [address] [id number] [address] [place] [address], [place] [address] February, [facility] [address] [id number] [address] [place] [address], [place] [address] February, [facility] [address] [id number] [address] [place] [address], [place] [address] February, [facility] [address] [id number] [address] [place] [address], [place] [address] February, [facility] [address] [id number] [address] [place] [address], [place] [address] February, [facility] [address] [id number] [address] [place] [address], [place] [address] February, [facility] [address] [id number] [address] [place] [address], [place] [address] February, [facility] [address] [id number] [address] [place] [address], [place] [address] February, [facility] [address] [id number] [address] [place] [address], [place] [address] Jan, [facility] [address] [id number] [address] [place] [address], [place] [address] 30 Jan, 2014 [facility] [address] [id number] [address] [place] [address], [place] [address] 18 Jan, 2014 [facility] [address] [id number] [address] [place] [address], [place] [address] 18 Jan, 2014 [facility] [address] [id number] [address] [place] [address], [place] [address] Jan, [facility] [address] [id number] [address] [place] [address], [place] [address] 18 Jan, 2014 [facility] [address] [id number] [address] [place] [address], [place] [address] Jan, [facility] [address] [id number] [address] [place] [address], [place] [address] Jan, [facility] [address] [id number] [address] [place] [address], [place] [address] 21 Dec, 2013 [facility] [address] [id number] [address] [place] [address], [place] [address] 20 Dec, 2013 [facility] [address] [id number] [address] [place] [address], [place] [address] 20 Dec, 2013 [facility] [address] [id number] [address] [place] [address], [place] [address] 19 Dec, 2013 [facility] [address] [id number] [address] [place] [address], [place] [address] 19 Dec, 2013 [facility] [address] [id number] [address] [place] [address], [place] [address] 15 Dec, 2013 [facility] [address] [id number] [address] [place] [address], [place] [address] 15 Dec, 2013 [facility] [address] [id number] [address] [place] [address], [place] [address] 11 Dec, 2013 [facility] [address] [id number] [address] [place] [address], [place] [address] Dec, [facility] [address] [id number] [address] [place] [address], [place] [address] Dec, [facility] [address] [id number] [address] [place] [address], [place] [address] Nov, [facility] [address] [id number] [address] [place] [address], [place] [address] Nov, [facility] [address] [id number] [address] [place] [address], [place] [address] Nov, [facility] [address] [id number] [address] [place] [address], [place] [address] Nov, [facility] [address] [id number] [address] [place] [address], [place] [address] Nov, [facility] [address] [id number] [address] [place] [address], [place] [address] Oct, [facility] [address] [id number] [address] [place] [address], [place] [address] Oct, [facility] [address] [id number] [address] [place] [address], [place] [address] Oct, [facility] [address] [id number] [address] [place] [address], [place] [address] Sep, [facility] [address] [id number] [address] [place] [address], [place] [address] Sep, [facility] [address] [id number] [address] [place] [address], [place] [address] Sep, [facility] [address] [id number] [address] [place] [address], [place] [address] Sep, [facility] [address] [id number] [address] [place] [address], [place] [address] Aug, [facility] [address] [id number] [address] [place] [address], [place] [address] Aug, [facility] [address] [id number] [address] [place] [address], [place] [address] Jul, [facility] [address] [id number] [address] [place] [address], [place] [address] Jul, [facility] [facility] [address] [id number] [address] [place] [address], [place] [address] Jul, [facility] [address] [id number] [address] [place] [address], [place] [address] Jul, [facility] [address] [id number] [address] [place] [address], [place] [address] Jul, [facility] [address] [id number] [address] [place] [address], [place] [address] Jun, [facility] [address] [id number] [address] [place] [address], [place] [address] 25 Jun, 2013 [facility] [address] [id number] [address] [place] [address], [place] [address] 19 Jun, 2013 [facility] [address] [id number] [address] [place] [address], [place] [address] 18 Jun, 2013 [facility] [address] [id number] [address] [place] [address], [place] [address] 16 Jun, 2013 [facility] [address] [id number] [address] [place] [address], [place] [address] 12 Jun, 2013 [facility] [address] [id number] [address] [place] [address], [place] [address] 11 Jun, 2013 [facility] [address] [id number] [address] [place] [address], [place] [address] 30 May, 2013 [facility] [address] [id number] [address] [place] [address], [place] [address] May, [facility] [address] [id number] [address] [place] [address], [place] [address] Apr, [facility] [address] [id number] [address] [place] [address], [place] [address] Apr, [facility] [address] [id number] [address] [place] [address], [place] [address] Apr, [facility] [address] [id number] [address] [place] [address], [place] [address] Mar, [facility] [address] [id number] [address] [place] [address], [place] [address] Mar, [facility] [address] [id number] [address] [place] [address], [place] [address] February, [facility] [address] [id number] [address] [place] [address], [place] [address] February, [facility] [address] [id number] [address] [place] [address], [place] [address] February, [facility] [address] [id number] [address] [place] [address], [place] [address] February, [facility] [address] [id number] [address] [place] [address], [place] [address] Jan, [facility] [address] [id number] [address] [place] [address], [place] [address] Jan, [facility] [address] [id number] [address] [place] [address], [place] [address] Jan, [facility] [address] [id number] [address] [place] [address], [place] [address] Dec, [facility] [address] [id number] [address] [place] [address], [place] [address] Dec, [facility] [address] [id number] [address] [place] [address], [place] [address] Dec, [facility] [address] [id number] [address] [place] [address], [place] [address] Dec, [facility] [address] [id number] [address] [place] [address], [place] [address] Nov, [facility] [address] [id number] [address] [place] [address], [place] [address] 13 Nov, 2012 [facility] [address] [id number] [address] [place] [address], [place] [address] Oct, [facility] [address] [id number] [address] [place] [address], [place] [address] Oct, [facility] [address] [id number] [address] [place] [address], [place] [address] Oct, [facility] [address] [id number] [address] [place] [address], [place] [address] Oct, [facility] [address] [id number] [address] [place] [address], [place] [address] Aug, [facility] [address] [id number] [address] [place] [address], [place] [address] Aug, [facility] [address] [id number] [address] [place] [address], [place] [address] Jun, [facility] [address] [id number] [address] [place] [address], [place] [address] May, [facility] [address] [id number] [address] [place] [address], [place] [address] May, [facility] [address] [id number] [address] [place] [address], [place] [address] Apr, [facility] [address] [id number] [address] [place] [address], [place] [address] Apr, [facility] [address] [id number] [address] [place] [address], [place] [address] Apr, [facility] [address] [id number] [address] [place] [address], [place] [address] Mar, [facility] [address] [id number] [address] [place] [address], [place] [address] Mar, [facility] [address] [id number] [address] [place] [address], [place] [address] Mar, [facility] [address] [id number] [address] [place] [address], [place] [address] Mar, [facility] [address] [id number] [address] [place] [address], [place] [address] Mar, [facility] [address] [id number] [address] [place] [address], [place] [address] February, [facility] [address] [id number] [address] [place] [address], [place] [address] February, [facility] [address] [id number] [address] [place] [address], [place] [address] February, [facility] [address] [id number] [address] [place] [address], [place] [address] February, [facility] [address] [id number] [address] [place] [address], [place] [address] February, [facility] [address] [id number] [address] [place] [address], [place] [address] February, [facility] [address] [id number] [address] [place] [address], [place] [address] February, [facility] [address] [id number] [address] [place] [address], [place] [address] Jan, [facility] [address] [id number] [address] [place] [address], [place] [address] 18 Jan, 2012 [facility] [address] [id number] [address] [place] [address], [place] [address] 17 Jan, 2012 [facility] [address] [id number] [address] [place] [address], [place] [address] 13 Jan, 2012 [facility] [address] [id number] [address] [place] [address], [place] [address] 10 Jan, 2012 [facility] [address] [id number] [address] [place] [address], [place] [address] 04 Jan, 2012 [facility] [address] [id number] [address] [place] [address], [place] [address] 30 Dec, 2011 [facility] [address] [id number] [address] [place] [address], [place] [address] 24 Dec, 2011 [facility] [address] [id number] [address] [place] [address], [place] [address] 20 Dec, 2011 [facility] [address] [id number] [address] [place] [address], [place] [address] 13 Dec, 2011 [facility] [address] [id number] [address] [place] [address], [place] [address] 06 Dec, 2011 [facility] [address] [id number] [address] [place] [address], [place] [address] 28 Nov, 2011 [facility] [address] [id number] [address] [place] [address], [place] [address] 27 Nov, 2011 [facility] [address] [id number] [address] [place] [address], [place] [address] 25 Nov, 2011 [facility] [address] [id number] [address] [place] [address], [place] [address] 14 Nov, 2011 [facility] [address] [id number] [address] [place] [address], [place] [address] Nov, [facility] [address] [id number] [address] [place] [address], [place] [address] Nov, [facility] [address] [id number] [address] [place] [address], [place] [address] Oct, [facility] [address] [id number] [address] [place] [address], [place] [address] Oct, [facility] [address] [id number] [address] [place] [address], [place] [address] Oct, [facility] [address] [id number] [address] [place] [address], [place] [address] Oct, [facility] [address] [id number] [address] [place] [address], [place] [address] Oct, [facility] [address] [id number] [address] [place] [address], [place] [address] Sep, [facility] [address] [id number] [address] [place] [address], [place] [address] Sep, [facility] [address] [id number] [address] [place] [address], [place] [address] Sep, [facility] [address] [id number] [address] [place] [address], [place] [address] 14 Sep, 2011 [facility] [address] [id number] [address] [place] [address], [place] [address] 14 Sep, 2011 [facility] [address] [id number] [address] [place] [address], [place] [address] Sep, [facility] [address] [id number] [address] [place] [address], [place] [address] Sep, [facility] [address] [id number] [address] [place] [address], [place] [address] Sep, [facility] [address] [id number] [address] [place] [address], [place] [address] Sep, [facility] [address] [id number] [address] [place] [address], [place] [address] Aug, [facility] [address] [id number] [address] [place] [address], [place] [address] Aug, [facility] [address] [id number] [address] [address] Aug, [facility] [address] [id number] [address] [place] [address], [place] [address] Aug, [facility] [address] [id number] [address] [place] [address], [place] [address] Aug, [facility] [address] [id number] [address] [place] [address], [place] [address] Aug, [facility] [address] [id number] [address] [place] [address] Aug, [facility] [address] [id number] [address] [place] [address], [place] [address] 16 Aug, 2011 [facility] [address] [id number] [address] [place] [address] Aug, [facility] [address] [id number] [address] [place] [address], [place] [address] Aug, [facility] [address] [id number] [address] [place] [address], [place] [address] Aug, [facility] [address] [id number] [address] [place] [address], [place] [address] Aug, [facility] [address] [id number] [address] [place] [address], [place] [address] Jul, [facility] [address] [id number] [address] [address] Jul, [facility] [address] [id number] [address] [place] [address], [place] [address] 24 Jul, 2011 [facility] [address] [id number] [address] [place] [address] Jul, [facility] [address] [id number] [address] [place] [address] Jul, [facility] [address] [id number] [address] [place] [address] Jul, [facility] [address] [id number] [address] [place] [address] 18 Jul, 2011 [facility] [address] [id number] [address] [place] [address] 11 Jul, 2011 [facility] [address] [id number] [address] [place] [address] Jul, [facility] [address] [id number] [address] [place] [address] 10 Jul, 2011 [facility] [address] [id number] [address] [place] [address] Nov, [facility] [address] [facility] [id number] [address] [address] Aug, [facility] [address] [facility] [id number] [address] [address] Aug, [facility] [address] [facility] [id number] [address] [address] Aug, [facility] [address] [facility] [id number] [address] [address] Aug, [facility] [address] [facility] [id number] [address] [place] [address] Jul, IMMUNIZATIONS No Known Immunizations SOCIAL HISTORY [...] Suicide attempt by hanging 2015 Hospitalization History [facility] 01/30/2018-02/10/20 08 Hospitalization History [facility] 05/04/18-
--- OUTSIDE RECORDS SUMMARY | 2020-04-04 02:08 | XMS REPORT ---
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 Active 76158947 Problem Generalized anxiety disorder 300.02 A ctive 05148511 Problem Obsessive-compulsive disorders 300.3 Active 876840101 Problem Catatonic schizophrenia, 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 810819639 Problem Disorganized schizophrenia, 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 90703512 Problem Paranoid schizophrenia F20.0 Active 37359185 Problem Borderline personality disorder F60.3 Active 73210571 Problem Paranoid schizophrenia, unspecified condition 295.30 Active 41663641 Problem Schizoaffective disorder, depressive type F25.1 Active 35902748 Problem Bipolar disorder, unspecified 296.80 Active 10070693 Problem Schizoaffective disorder, unspecified F25.9 Active 18175515 Problem Attention deficit hyperactivity disorder (ADHD), inattentive type, 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 48057516 Problem Posttraumatic stress disorder F43.10 Active 58694243 Problem High risk medication use Z79.899 Activ e [id number] ALLERGIES No Information ENCOUNTERS Encounter Location Date Diagnosis [facility] [address] [facility] [id number] [address] [place] [phone] May, [facility] [address] [facility] [id number] [address] [place] [phone] Mar, Paranoid schizophrenia F20.0 [facility] [address] [facility] [id number] [address] [place] [id number] Mar, Paranoid schizophrenia F20.0 ; Posttraumatic stress disorder F43.10 ; Attention deficit hyperactivity disorder (ADHD), inattentive type, 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 and Borderline personality disorder F60.3 [facility] [address] [facility] [id number] [address] [place] [phone] February, Paranoid schizophrenia F20.0 [facility] [address] [facility] [id number] [address] [place] [id number] Jan, Paranoid schizophrenia F20.0 ; Posttraumatic stress disorder F43.10 ; Attention deficit hyperactivity disorder (ADHD), inattentive type, 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 and Borderline personality disorder F60.3 [facility] [address] [facility] [id number] [address] [place] [id number] Dec, Paranoid schizophrenia F20.0 ; Posttraumatic stress disorder F43.10 ; Attention deficit hyperactivity disorder (ADHD), inattentive type, 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 and Borderline personality disorder F60.3 [facility] [address] [facility] [id number] [address] [place] [phone] Dec, Paranoid schizophrenia F20.0 ; Posttraumatic stress disorder F43.10 ; Attention deficit hyperactivity disorder (ADHD), inattentive type, 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 and Borderline personality disorder F60.3 [facility] [address] [facility] [id number] [address] [place] [phone] Oct, Paranoid schizophrenia F20.0 ; Posttraumatic stress disorder F43.10 ; Attention deficit hyperactivity disorder (ADHD), inattentive type, 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 and Borderline personality disorder F60.3 [facility] [address] [facility] [id number] [address] [place] [phone] Oct, Paranoid schizophrenia F20.0 ; Posttraumatic stress disorder F43.10 ; Attention deficit hyperactivity disorder (ADHD), inattentive type, 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 and Borderline personality disorder F60.3 [facility] [address] [facility] [id number] [address] [place] [phone] Aug, [facility] [address] [facility] [id number] [address] [place] [phone] Aug, Paranoid schizophrenia F20.0 ; Posttraumatic stress disorder F43.10 ; Attention deficit hyperactivity disorder (ADHD), inattentive type, 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 and Borderline personality disorder F60.3 [facility] [address] [facility] [id number] [address] [place] [phone] Jul, Dry skin dermatitis L85.3 [facility] [address] [id number] [address] [place] [phone] Jul, [facility] [address] [facility] [id number] [address] [place] [phone] Jul, Paranoid schizophrenia F20.0 [facility] [address] [id number] [address] [place] [id number] May, Paranoid schizophrenia F20.0 ; Posttraumatic stress disorder F43.10 ; Attention deficit hyperactivity disorder (ADHD), inattentive type, 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 and Borderline personality disorder F60.3 [facility] [address] [facility] [id number] [address] [place] [phone] May, [facility] [address] [facility] [id number] [address] [place] [id number] May, Paranoid schizophrenia F20.0 [facility] [address] [facility] [id number] [address] [place] [phone] May, Paranoid schizophrenia F20.0 ; Posttraumatic stress disorder F43.10 ; Attention deficit hyperactivity disorder (ADHD), inattentive type, 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 and Borderline personality disorder F60.3 [facility] [address] [id number] [address] [place] [phone] Apr, [facility] [address] [facility] [id number] [address] [place] [id number] Apr, Paranoid schizophrenia F20.0 ; Posttraumatic stress disorder F43.10 ; Attention deficit hyperactivity disorder (ADHD), inattentive type, 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 and Borderline personality disorder F60.3 [facility] [address] [facility] [id number] [address] [place] [id number] Apr, [facility] [address] [id number] [address] [place] [phone] Apr, Schizoaffective disorder, de pressive type F25.1 and Borderline personality disorder F60.3 [facility] [address] [id number] [address] [place] [id number] Apr, Paranoid schizophrenia F20.0 ; Posttraumatic stress disorder F43.10 ; Attention deficit hyperactivity disorder (ADHD), inattentive type, 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 and Borderline personality disorder F60.3 [facility] [address] [id number] [address] [place] [phone] Apr, [facility] [address] [id number] [address] [place] [phone] Apr, Paranoid schizophrenia F20.0 ; Posttraumatic stress disorder F43.10 ; Attention deficit hyperactivity disorder (ADHD), inattentive type, 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 and Borderline personality disorder F60.3 [facility] [address] [id number] [address] [place] [phone] Apr, [facility] [address] [id number] [address] [place] [id number] Mar, Paranoid schizophrenia F20.0 [facility] [address] [id number] [address] [place] [phone] Mar, [facility] [address] [id number] [address] [place] [id number] Mar, Paranoid schizophrenia F20.0 ; Posttraumatic stress disorder F43.10 ; Attention deficit hyperactivity disorder (ADHD), inattentive type, 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 and Borderline personality disorder F60.3 [facility] [address] [id number] [address] [place] [phone] February, Paranoid schizophrenia F20.0 [facility] [address] [id number] [address] [place] [phone] February, Paranoid schizophrenia F20.0 ; Posttraumatic stress disorder F43.10 ; Attention deficit hyperactivity disorder (ADHD), inattentive type, 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 and Borderline personality disorder F60.3 [facility] [address] [facility] [id number] [address] [place] [phone] February, Paranoid schizophrenia F20.0 ; Posttraumatic stress disorder F43.10 ; Attention deficit hyperactivity disorder (ADHD), inattentive type, 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 and Borderline personality disorder F60.3 [facility] [address] [facility] [id number] [address] [place] [phone] February, [facility] [address] [facility] [id number] [address] [place] [id number] February, Paranoid schizophrenia F20.0 [facility] [address] [facility] [id number] [address] [place] [id number] February, Paranoid schizophrenia F20.0 [facility] [address] [facility] [id number] [address] [place] [id number] February, Paranoid schizophrenia F20.0 ; Posttraumatic stress disorder F43.10 ; Attention deficit hyperactivity disorder (ADHD), inattentive type, 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 and Borderline personality disorder F60.3 [facility] [address] [facility] [id number] [address] [place] [id number] Jan, Paranoid schizophrenia F20.0 ; Posttraumatic stress disorder F43.10 ; Attention deficit hyperactivity disorder (ADHD), inattentive type, 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 and Borderline personality disorder F60.3 [facility] [address] [facility] [id number] [address] [place] [phone] Jan, Paranoid schizophrenia F20.0 [facility] [address] [facility] [id number] [address] [place] [id number] Jan, Paranoid schizophrenia F20.0 [facility] [address] [facility] [id number] [address] [place] [phone] Jan, Paranoid schizophrenia F20.0 ; Posttraumatic stress disorder F43.10 ; Attention deficit hyperactivity disorder (ADHD), inattentive type, 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 and Borderline personality disorder F60.3 [facility] [address] [id number] [address] [place] [phone] Dec, [facility] [address] [id number] [address] [place] [phone] Nov, Paranoid schizophrenia F20.0 ; Posttraumatic stress disorder F43.10 ; Attention deficit hyperactivity disorder (ADHD), inattentive type, 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 and Borderline personality disorder F60.3 [facility] [address] [id number] [address] [place] [id number] Nov, [facility] [address] [id number] [address] [place] [phone] Oct, Paranoid schizophrenia F20.0 [facility] [address] [id number] [address] [place] [id number] Oct, Paranoid schizophrenia F20.0 ; Posttraumatic stress disorder F43.10 ; Attention deficit hyperactivity disorder (ADHD), inattentive type, 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 ; Borderline personality disorder F60.3 and Other senior living (current) drug therapy Z79.899 [facility] [address] [id number] [address] [place] [id number] Oct, [facility] [address] [id number] [address] [place] [id number] Oct, [facility] [address] [id number] [address] [place] [phone] Sep, [facility] [address] [id number] [address] [place] [phone] Sep, Paranoid schizophrenia F20.0 ; Posttraumatic stress disorder F43.10 ; Attention deficit hyperactivity disorder (ADHD), inattentive type, 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 and Borderline personality disorder F60.3 [facility] [address] [id number] [address] [place] [id number] Sep, Paranoid schizophrenia F20.0 [facility] [address] [id number] [address] [place] [phone] Aug, Paranoid schizophrenia F20.0 ; Posttraumatic stress disorder F43.10 ; Attention deficit hyperactivity disorder (ADHD), inattentive type, 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 and Borderline personality disorder F60.3 [facility] [address] [facility] [id number] [address] [place] [phone] Aug, Paranoid schizophrenia F20.0 ; Posttraumatic stress disorder F43.10 ; Attention deficit hyperactivity disorder (ADHD), inattentive type, 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 and Borderline personality disorder F60.3 [facility] [address] [facility] [id number] [address] [place] [phone] Aug, [facility] [address] [facility] [id number] [address] [place] [phone] Jul, Paranoid schizophrenia F20.0 ; Posttraumatic stress disorder F43.10 ; Attention deficit hyperactivity disorder (ADHD), inattentive type, 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 and Borderline personality disorder F60.3 [facility] [address] [place] [id number] [address] [place] [id number] Jul, Paranoid schizophrenia F20.0 [facility] [address] [facility] [id number] [address] [place] [phone] Jul, Paranoid schizophrenia F20.0 ; Posttraumatic stress disorder F43.10 ; Attention deficit hyperactivity disorder (ADHD), inattentive type, 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 and Borderline personality disorder F60.3 [facility] [address] [facility] [id number] [address] [place] [phone] Jun, Paranoid schizophrenia F20.0 ; Posttraumatic stress disorder F43.10 ; Attention deficit hyperactivity disorder (ADHD), inattentive type, 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 and Borderline personality disorder F60.3 [facility] [address] [facility] [id number] [address] [place] [phone] May, Other senior living (current) dr gabriel parra Z79.899 [facility] [address] [place] [id number] [address] [place] [phone] May, [facility] [address] [id number] [address] [address] May, [facility] [address] [id number] [address] [place] [phone] May, Attention deficit hyperactiv ity disorder (ADHD), inattentive type, mild F90.0 [facility] [address] [id number] [address] [place] [phone] May, [facility] [address] [facility] [id number] [address] [place] [id number] May, Attention deficit hyperactiv ity disorder (ADHD), inattentive type, mild F90.0 [facility] [address] [id number] [address] [place] [phone] May, Paranoid schizophrenia F20.0 ; Posttraumatic stress disorder F43.10 ; Attention deficit hyperactivity disorder (ADHD), inattentive type, 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 and Other termination clerk (current) drug therapy Z79.899 [facility] [address] [facility] [id number] [address] [place] [phone] Apr, Paranoid schizophrenia F20.0 [facility] [address] [facility] [id number] [address] [place] [phone] Apr, Paranoid schizophrenia F20.0 ; Posttraumatic stress disorder F43.10 and Attention deficit hyperactivity disorder (ADHD), inattentive type, 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 [facility] [address] [facility] [id number] [address] [place] [phone] February, [facility] [address] [facility] [id number] [address] [place] [phone] February, Paranoid schizophrenia F20.0 ; Posttraumatic stress disorder F43.10 and Attention deficit hyperactivity disorder (ADHD), inattentive type, 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 [facility] [address] [id number] [address] [place] [phone] February, Paranoid schizophrenia F20.0 ; Posttraumatic stress disorder F43.10 and Attention deficit hyperactivity disorder (ADHD), inattentive type, 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 [facility] [address] [id number] [address] [place] [phone] Jan, Paranoid schizophrenia F20.0 ; Posttraumatic stress disorder F43.10 and Attention deficit hyperactivity disorder (ADHD), inattentive type, 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 [facility] [address] [id number] [address] [place] [id number] Dec, Dental examination Z01.20 [facility] [address] [id number] [address] [place] [id number] Nov, Dental examination Z01.20 [facility] [address] [id number] [address] [place] [id number] Nov, Dental examination Z01.20 [facility] [address] [id number] [address] [place] [address] [id number] Nov, Dental caries K02.9 [facility] [address] [id number] [address] [place] [phone] Nov, High risk medication use Z79 .899 [facility] [address] [id number] [address] [place] [phone] Nov, Paranoid schizophrenia F20.0 ; Posttraumatic stress disorder F43.10 ; Attention deficit hyperactivity disorder (ADHD), inattentive type, 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 and Borderline personality disorder in adult F60.3 [facility] [address] [id number] [address] [place] [id number] Oct, Dental caries K02.9 [facility] [address] [id number] [address] [place] [phone] Sep, Paranoid schizophrenia F20.0 ; Posttraumatic stress disorder F43.10 and Attention deficit hyperactivity disorder (ADHD), inattentive type, 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 [facility] [address] [id number] [address] [place] [id number] Aug, Paranoid schizophrenia F20.0 ; Posttraumatic stress disorder F43.10 and Attention deficit hyperactivity disorder (ADHD), inattentive type, 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 [facility] [address] [id number] [address] [place] [phone] Aug, Strep throat J02.0 and Cough R05 [facility] [address] [id number] [address] [place] [id number] Aug, [facility] [address] [id number] [address] [place] [phone] Jul, Paranoid schizophrenia F20.0 ; Posttraumatic stress disorder F43.10 and Attention deficit hyperactivity disorder (ADHD), inattentive type, 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 [facility] [address] [id number] [address] [place] [id number] Jul, [facility] [address] [id number] [address] [place] [phone] Jun, Paranoid schizophrenia F20.0 ; Posttraumatic stress disorder F43.10 and Attention deficit hyperactivity disorder (ADHD), inattentive type, 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 [facility] [address] [id number] [address] [place] [address] [id number] Jun, Dental examination Z01.20 [facility] [address] [id number] [address] [place] [phone] Jun, [facility] [address] [id number] [address] [place] [phone] May, Paranoid schizophrenia F20.0 [facility] [address] [id number] [address] [place] [id number] May, Paranoid schizophrenia F20.0 ; Posttraumatic stress disorder F43.10 and Attention deficit hyperactivity disorder (ADHD), inattentive type, 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 [facility] [address] [id number] [address] [place] [phone] May, [facility] [address] [id number] [address] [place] [id number] May, Paranoid schizophrenia F20.0 [facility] [address] [id number] [address] [place] [phone] May, [facility] [address] [id number] [address] [place] [id number] May, Paranoid schizophrenia F20.0 [facility] [address] [id number] [address] [place] [id number] May, Schizoaffective disorder, un specified F25.9 [facility] [address] [id number] [address] [place] [phone] May, Schizoaffective disorder, un specified F25.9 [facility] [address] [id number] [address] [place] [phone] May, [facility] [address] [id number] [address] [place] [phone] May, Paranoid schizophrenia F20.0 [facility] [address] [id number] [address] [place] [phone] May, Paranoid schizophrenia F20.0 ; Posttraumatic stress disorder F43.10 and Attention deficit hyperactivity disorder (ADHD), inattentive type, 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 [facility] [address] [id number] [address] [place] [phone] Mar, [facility] [address] [id number] [address] [place] [id number] Mar, Paranoid schizophrenia F20.0 ; Posttraumatic stress disorder F43.10 and Attention deficit hyperactivity disorder (ADHD), inattentive type, 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 [facility] [address] [id number] [address] [place] [phone] Mar, Paranoid schizophrenia F20.0 [facility] [address] [id number] [address] [place] [phone] Mar, Paranoid schizophrenia F20.0 ; Attention deficit hyperactivity disorder (ADHD), inattentive type, 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 and Posttraumatic stress disorder F43.10 [facility] [address] [id number] [address] [place] [phone] Mar, [facility] [address] [id number] [address] [place] [phone] Mar, Paranoid schizophrenia F20.0 ; Posttraumatic stress disorder F43.10 and Attention deficit hyperactivity disorder (ADHD), inattentive type, 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 [facility] [address] [id number] [address] [place] [phone] February, [facility] [address] [id number] [address] [place] [phone] February, [facility] [address] [id number] [address] [place] [phone] February, [facility] [address] [id number] [address] [place] [phone] February, [facility] [address] [id number] [address] [place] [phone] Jan, Paranoid schizophrenia F20.0 [facility] [address] [id number] [address] [place] [phone] Jan, Dental examination Z01.20 [facility] [address] [id number] [address] [place] [id number] Jan, Dental caries K02.9 [facility] [address] [id number] 18 [place] [address] [id number] Jan, Dental examination Z01.20 [facility] [address] [id number] [address] [place] [address] [id number] Dec, Encounter for dental examina tion Z01.20 [facility] [address] [id number] [address] [place] [phone] Dec, Paranoid schizophrenia F20.0 [facility] [address] [id number] [address] [place] [address] [id number] Dec, Dental examination Z01.20 [facility] [address] [id number] [address] [place] [id number] Dec, [facility] [address] [id number] [address] [place] [id number] Dec, Paranoid schizophrenia F20.0 ; Posttraumatic stress disorder F43.10 and Attention deficit hyperactivity disorder (ADHD), inattentive type, 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 [facility] [address] [id number] [address] [place] [id number] Nov, Schizoaffective disorder, un specified F25.9 [facility] [address] [id number] [address] [place] [phone] Oct, Paranoid schizophrenia F20.0 [facility] [address] [id number] [address] [place] [id number] Oct, [facility] [address] [id number] [address] [place] [id number] Sep, Paranoid schizophrenia F20.0 ; Posttraumatic stress disorder F43.10 and Attention deficit hyperactivity disorder (ADHD), inattentive type, 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 [facility] [address] [id number] [address] [place] [id number] Sep, [facility] [address] [id number] [address] [place] [id number] Sep, Paranoid schizophrenia F20.0 ; Posttraumatic stress disorder F43.10 and Attention deficit hyperactivity disorder (ADHD), inattentive type, 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 [facility] [address] [id number] [address] [place] [id number] Aug, Paranoid schizophrenia F20.0 [facility] [address] [id number] [address] [place] [id number] Aug, [facility] [address] [id number] [address] [place] [id number] Aug, Posttraumatic stress disorde r F43.10 ; Paranoid schizophrenia F20.0 and Attention deficit hyperactivity disorder (ADHD), inattentive type, 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 [facility] [address] [id number] [address] [place] [id number] Jul, Bipolar disorder, unspecifie d F31.9 [facility] [address] [id number] [address] [place] [id number] Jul, [facility] [address] [id number] [address] [place] [id number] Jun, [facility] [address] [id number] [address] [place] [phone] Jun, Schizoaffective disorder, ch ronic 295.72 ; Posttraumatic stress disorder 309.81 and Attention deficit disorder of childhood without mention of hyperactivity 314.00 [facility] [address] [id number] [address] [place] [id number] May, [facility] [address] [facility] [id number] [address] [place] [id number] May, [facility] [address] [facility] [id number] [address] [place] [phone] May, Schizoaffective disorder, ch ronic 295.72 ; Posttraumatic stress disorder 309.81 ; Attention deficit disorder of childhood without mention of hyperactivity 314.00 and Bipolar disorder, unspecified 296.80 [facility] [address] [facility] [id number] [address] [place] [id number] Apr, Schizoaffective disorder, ch ronic 295.72 [facility] [address] [facility] [id number] [address] [place] [id number] Apr, [facility] [address] [id number] [address] [place] [id number] Apr, Schizoaffective disorder, ch ronic 295.72 ; Posttraumatic stress disorder 309.81 and Attention deficit disorder of childhood without mention of hyperactivity 314.00 [facility] [address] [id number] [address] [place] [phone] Mar, Disorganized schizophrenia, 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 [address] [id number] [address] [place] [id number] Mar, [facility] [address] [id number] [address] [place] [id number] Mar, [facility] [address] [id number] [address] [place] [id number] Mar, [facility] [address] [id number] [address] [place] [id number] February, Schizoaffective disorder, ch ronic 295.72 [facility] [address] [id number] [address] [place] [phone] February, [facility] [address] [id number] [address] [place] [id number] February, Attention 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 ; Posttraumatic stress disorder 309.81 and Schizoaffective disorder, chronic 295.72 [facility] [address] [id number] [address] [place] [phone] 29 Jan, 2015 [facility] [address] [id number] [address] [place] [phone] [address], [address] [facility] [address] [id number] [address] [place] [phone] Jan, [facility] [address] [id number] [address] [place] [phone] Dec, [facility] [address] [id number] [address] [place] [phone] Dec, [facility] [address] [id number] [address] [place] [phone] Dec, [facility] [address] [id number] [address] [place] [id number] Dec, [facility] [address] [id number] [address] [place] [id number] Dec, [facility] [address] [id number] [facility] [place] [address] Dec, [facility] [address] [id number] [address] [place] [address], [place] [address] Dec, [facility] [address] [id number] [address] [place] [address], [place] [address] Dec, [facility] [address] [id number] [address] [place] [address], [place] [address] Nov, [facility] [address] [id number] [address] [place] [address], [place] [address] Nov, [facility] [address] [id number] [address] [place] [address], [place] [address] Nov, [facility] [address] [id number] [address] [place] [address], [place] [address] Nov, [facility] [address] [id number] [address] [place] [address], [place] [address] Nov, [facility] [address] [id number] [address] [place] [address], [place] [address] Nov, [facility] [address] [id number] [address] [place] [address], [place] [address] Nov, [facility] [address] [id number] [address] [place] [address], [place] [address] Nov, [facility] [address] [id number] [address] [place] [address], [place] [address] Nov, [facility] [address] [id number] [address] [place] [address], [place] [address] Nov, [facility] [address] [id number] [address] [place] [address], [place] [address] Oct, [facility] [address] [id number] [address] [place] [address], [place] [address] Oct, [facility] [address] [id number] [address] [place] [address], [place] [address] 28 Oct, 2014 [facility] [address] [id number] [address] [place] [address], [place] [address] Oct, [facility] [address] [id number] [address] [place] [address], [place] [address] 15 Oct, 2014 [facility] [address] [id number] [address] [place] [address], [place] [address] Oct, [facility] [address] [id number] [address] [place] [address], [place] [address] Oct, [facility] [address] [id number] [address] [place] [address], [place] [address] 17 Sep, 2014 [facility] [address] [id number] [address] [place] [address], [place] [address] 17 Sep, 2014 [facility] [address] [id number] [address] [place] [address], [place] [address] Sep, [facility] [address] [id number] [address] [place] [address], [place] [address] Sep, [facility] [address] [id number] [address] [place] [address], [place] [address] Aug, [facility] [address] [id number] [address] [place] [address], [place] [address] Aug, [facility] [address] [id number] [address] [place] [address], [place] [address] 14 Aug, 2014 [facility] [address] [id number] [address] [place] [address], [place] [address] Aug, [facility] [address] [id number] [address] [place] [address], [place] [address] Aug, [facility] [address] [id number] [address] [place] [address], [place] [address] Aug, [facility] [address] [id number] [address] [place] [address], [place] [address] Jul, [facility] [address] [id number] [address] [place] [address], [place] [address] 29 Jul, 2014 [facility] [address] [id number] [address] [place] [address], [place] [address] 24 Jul, 2014 [facility] [address] [id number] [address] [place] [address], [place] [address] 24 Jul, 2014 [facility] [address] [id number] [address] [place] [address], [place] [address] 15 Jul, 2014 [facility] [address] [id number] [address] [place] [address], [place] [address] 15 Jul, 2014 [facility] [address] [id number] [address] [place] [address], [place] [address] 27 Jun, 2013 [facility] [address] [id number] [address] [place] [address], [place] [address] 27 Jun, 2013 [facility] [address] [id number] [address] [place] [address], [place] [address] 26 Jun, 2013 [facility] [address] [id number] [address] [place] [address], [place] [address] 26 Jun, 2013 [facility] [address] [id number] [address] [place] [address], [place] [address] 26 Jun, 2013 [facility] [address] [id number] [address] [place] [address], [place] [address] 26 Sep, 2013 [facility] [address] [id number] [address] [place] [address], [place] [address] 16 Sep, 2013 [facility] [address] [id number] [address] [place] [address], [place] [address] 16 Sep, 2013 [facility] [address] [id number] [address] [place] [address], [place] [address] 16 Sep, 2013 [facility] [address] [id number] [address] [place] [address], [place] [address] 16 Sep, 2013 [facility] [address] [id number] [address] [place] [address], [place] [address] Jun, [facility] [address] [id number] [address] [place] [address], [place] [address] May, [facility] [address] [id number] [address] [place] [address], [place] [address] May, [facility] [address] [id number] [address] [place] [address], [place] [address] May, [facility] [address] [id number] [address] [place] [address], [place] [address] May, [facility] [address] [id number] [address] [place] [address], [place] [address] May, [facility] [address] [id number] [address] [place] [address], [place] [address] May, [facility] [address] [id number] [address] [place] [address], [place] [address] May, [facility] [address] [id number] [address] [place] [address], [place] [address] May, [facility] [address] [id number] [address] [place] [address], [place] [address] May, [facility] [address] [id number] [address] [place] [address], [place] [address] May, [facility] [address] [id number] [address] [place] [address], [place] [address] Apr, [facility] [address] [id number] [address] [place] [address], [place] [address] Apr, [facility] [address] [id number] [address] [place] [address], [place] [address] Apr, [facility] [address] [id number] [address] [place] [address], [place] [address] Apr, [facility] [address] [id number] [address] [place] [address], [place] [address] Apr, [facility] [address] [id number] [facility] [place] [address] 24 Apr, 2014 [facility] [address] [id number] [facility] [place] [address] Apr, [facility] [address] [id number] [facility] [place] [address] Apr, [facility] [address] [id number] [address] [place] [address], [place] [address] Apr, [facility] [address] [id number] [address] [place] [address], [place] [address] Apr, [facility] [address] [id number] [address] [place] [address], [place] [address] Mar, [facility] [address] [id number] [address] [place] [address], [place] [address] Mar, [facility] [address] [id number] [address] [place] [address], [place] [address] Mar, [facility] [address] [id number] [address] [place] [address], [place] [address] 24 Mar, 2014 [facility] [address] [id number] [address] [place] [address], [place] [address] Mar, [facility] [address] [id number] [address] [place] [address], [place] [address] 18 Mar, 2014 [facility] [address] [id number] [address] [place] [address], [place] [address] 18 Mar, 2014 [facility] [address] [id number] [address] [place] [address], [place] [address] 16 Mar, 2014 [facility] [address] [id number] [address] [place] [address], [place] [address] 16 Mar, 2014 [facility] [address] [id number] [address] [place] [address], [place] [address] 13 Mar, 2014 [facility] [address] [id number] [address] [place] [address], [place] [address] Mar, [facility] [address] [id number] [facility] [place] [address] Mar, [facility] [address] [id number] [address] [place] [address], [place] [address] Mar, [facility] [address] [id number] [address] [place] [address], [place] [address] Mar, [facility] [address] [id number] [address] [place] [address], [place] [address] Mar, [facility] [address] [id number] [address] [place] [address], [place] [address] Mar, [facility] [address] [id number] [address] [place] [address], [place] [address] Mar, [facility] [address] [id number] [address] [place] [address], [place] [address] Mar, [facility] [address] [id number] [address] [place] [address], [place] [address] Mar, [facility] [address] [id number] [address] [place] [address], [place] [address] Mar, [facility] [address] [id number] [address] [place] [address], [place] [address] February, [facility] [address] [id number] [address] [place] [address], [place] [address] February, [facility] [address] [id number] [address] [place] [address], [place] [address] February, [facility] [address] [id number] [address] [place] [address], [place] [address] February, [facility] [address] [id number] [address] [place] [address], [place] [address] February, [facility] [address] [id number] [address] [place] [address], [place] [address] February, [facility] [address] [id number] [address] [place] [address], [place] [address] February, [facility] [address] [id number] [address] [place] [address], [place] [address] February, [facility] [address] [id number] [address] [place] [address], [place] [address] February, [facility] [address] [id number] [address] [place] [address], [place] [address] February, [facility] [address] [id number] [address] [place] [address], [place] [address] February, [facility] [address] [id number] [address] [place] [address], [place] [address] February, [facility] [address] [id number] [address] [place] [address], [place] [address] February, [facility] [address] [id number] [address] [place] [address], [place] [address] February, [facility] [address] [id number] [address] [place] [address], [place] [address] February, [facility] [address] [id number] [address] [place] [address], [place] [address] February, [facility] [address] [id number] [address] [place] [address], [place] [address] February, [facility] [address] [id number] [address] [place] [address], [place] [address] February, [facility] [address] [id number] [address] [place] [address], [place] [address] February, [facility] [address] [id number] [address] [place] [address], [place] [address] February, [facility] [address] [id number] [address] [place] [address], [place] [address] February, [facility] [address] [id number] [address] [place] [address], [place] [address] Jan, [facility] [address] [id number] [address] [place] [address], [place] [address] 30 Jan, 2014 [facility] [address] [id number] [address] [place] [address], [place] [address] 18 Jan, 2014 [facility] [address] [id number] [address] [place] [address], [place] [address] 18 Jan, 2014 [facility] [address] [id number] [address] [place] [address], [place] [address] Jan, [facility] [address] [id number] [address] [place] [address], [place] [address] 18 Jan, 2014 [facility] [address] [id number] [address] [place] [address], [place] [address] Jan, [facility] [address] [id number] [address] [place] [address], [place] [address] Jan, [facility] [address] [id number] [address] [place] [address], [place] [address] 21 Dec, 2013 [facility] [address] [id number] [address] [place] [address], [place] [address] 20 Dec, 2013 [facility] [address] [id number] [address] [place] [address], [place] [address] 20 Dec, 2013 [facility] [address] [id number] [address] [place] [address], [place] [address] 19 Dec, 2013 [facility] [address] [id number] [address] [place] [address], [place] [address] 19 Dec, 2013 [facility] [address] [id number] [address] [place] [address], [place] [address] 15 Dec, 2013 [facility] [address] [id number] [address] [place] [address], [place] [address] 15 Dec, 2013 [facility] [address] [id number] [address] [place] [address], [place] [address] 11 Dec, 2013 [facility] [address] [id number] [address] [place] [address], [place] [address] Dec, [facility] [address] [id number] [address] [place] [address], [place] [address] Dec, [facility] [address] [id number] [address] [place] [address], [place] [address] Nov, [facility] [address] [id number] [address] [place] [address], [place] [address] Nov, [facility] [address] [id number] [address] [place] [address], [place] [address] Nov, [facility] [address] [id number] [address] [place] [address], [place] [address] Nov, [facility] [address] [id number] [address] [place] [address], [place] [address] Nov, [facility] [address] [id number] [address] [place] [address], [place] [address] Oct, [facility] [address] [id number] [address] [place] [address], [place] [address] Oct, [facility] [address] [id number] [address] [place] [address], [place] [address] Oct, [facility] [address] [id number] [address] [place] [address], [place] [address] Sep, [facility] [address] [id number] [address] [place] [address], [place] [address] Sep, [facility] [address] [id number] [address] [place] [address], [place] [address] Sep, [facility] [address] [id number] [address] [place] [address], [place] [address] Sep, [facility] [address] [id number] [address] [place] [address], [place] [address] Aug, [facility] [address] [id number] [address] [place] [address], [place] [address] Aug, [facility] [address] [id number] [address] [place] [address], [place] [address] Jul, [facility] [address] [id number] [address] [place] [address], [place] [address] Jul, [facility] [address] [id number] [address] [place] [address], [place] [address] Jul, [facility] [address] [id number] [address] [place] [address], [place] [address] Jul, [facility] [address] [id number] [address] [place] [address], [place] [address] Jul, [facility] [address] [id number] [address] [place] [address], [place] [address] Jun, [facility] [address] [id number] [address] [place] [address], [place] [address] 25 Jun, 2013 [facility] [address] [id number] [address] [place] [address], [place] [address] 19 Jun, 2013 [facility] [address] [id number] [address] [place] [address], [place] [address] 18 Jun, 2013 [facility] [address] [id number] [address] [place] [address], [place] [address] 16 Jun, 2013 [facility] [address] [id number] [address] [place] [address], [place] [address] 12 Jun, 2013 [facility] [address] [id number] [address] [place] [address], [place] [address] 11 Jun, 2013 [facility] [address] [id number] [address] [place] [address], [place] [address] 30 May, 2013 [facility] [address] [id number] [address] [place] [address], [place] [address] May, [facility] [address] [id number] [address] [place] [address], [place] [address] Apr, [facility] [address] [id number] [address] [place] [address], [place] [address] Apr, [facility] [address] [id number] [address] [place] [address], [place] [address] Apr, [facility] [address] [id number] [address] [place] [address], [place] [address] Mar, [facility] [address] [id number] [address] [place] [address], [place] [address] Mar, [facility] [address] [id number] [address] [place] [address], [place] [address] February, [facility] [address] [id number] [address] [place] [address], [place] [address] February, [facility] [address] [id number] [address] [place] [address], [place] [address] February, [facility] [address] [id number] [address] [place] [address], [place] [address] February, [facility] [address] [id number] [address] [place] [address], [place] [address] Jan, [facility] [address] [id number] [address] [place] [address], [place] [address] Jan, [facility] [address] [id number] [address] [place] [address], [place] [address] Jan, [facility] [address] [id number] [address] [place] [address], [place] [address] Dec, [facility] [address] [id number] [address] [place] [address], [place] [address] Dec, [facility] [address] [id number] [address] [place] [address], [place] [address] Dec, [facility] [address] [id number] [address] [place] [address], [place] [address] Dec, [facility] [address] [id number] [address] [place] [address], [place] [address] Nov, [facility] [address] [id number] [address] [place] [address], [place] [address] 13 Nov, 2012 [facility] [address] [id number] [address] [place] [address], [place] [address] Oct, [facility] [address] [id number] [address] [place] [address], [place] [address] Oct, [facility] [address] [id number] [address] [place] [address], [place] [address] Oct, [facility] [address] [id number] [address] [place] [address], [place] [address] Oct, [facility] [address] [id number] [address] [place] [address], [place] [address] Aug, [facility] [address] [id number] [address] [place] [address], [place] [address] Aug, [facility] [address] [id number] [address] [place] [address], [place] [address] Jun, [facility] [address] [id number] [address] [place] [address], [place] [address] May, [facility] [address] [id number] [address] [place] [address], [place] [address] May, [facility] [address] [id number] [address] [place] [address], [place] [address] Apr, [facility] [address] [id number] [address] [place] [address], [place] [address] Apr, [facility] [address] [id number] [address] [place] [address], [place] [address] Apr, [facility] [address] [id number] [address] [place] [address], [place] [address] Mar, [facility] [address] [id number] [address] [place] [address], [place] [address] Mar, [facility] [address] [id number] [address] [place] [address], [place] [address] Mar, [facility] [address] [id number] [address] [place] [address], [place] [address] Mar, [facility] [address] [id number] [address] [place] [address], [place] [address] Mar, [facility] [address] [id number] [address] [place] [address], [place] [address] February, [facility] [address] [id number] [address] [place] [address], [place] [address] February, [facility] [address] [id number] [address] [place] [address], [place] [address] February, [facility] [address] [id number] [address] [place] [address], [place] [address] February, [facility] [address] [id number] [address] [place] [address], [place] [address] February, [facility] [address] [id number] [address] [place] [address], [place] [address] February, [facility] [address] [id number] [address] [place] [address], [place] [address] February, [facility] [address] [id number] [address] [place] [address], [place] [address] Jan, [facility] [address] [id number] [address] [place] [address], [place] [address] 18 Jan, 2012 [facility] [address] [id number] [address] [place] [address], [place] [address] 17 Jan, 2012 [facility] [address] [id number] [address] [place] [address], [place] [address] 13 Jan, 2012 [facility] [address] [id number] [address] [place] [address], [place] [address] 10 Jan, 2012 [facility] [address] [id number] [address] [place] [address], [place] [address] 04 Jan, 2012 [facility] [address] [id number] [address] [place] [address], [place] [address] 30 Dec, 2011 [facility] [address] [id number] [address] [place] [address], [place] [address] 24 Dec, 2011 [facility] [address] [id number] [address] [place] [address], [place] [address] 20 Dec, 2011 [facility] [address] [id number] [address] [place] [address], [place] [address] 13 Dec, 2011 [facility] [address] [id number] [address] [place] [address], [place] [address] 06 Dec, 2011 [facility] [address] [id number] [address] [place] [address], [place] [address] 28 Nov, 2011 [facility] [address] [id number] [address] [place] [address], [place] [address] 27 Nov, 2011 [facility] [address] [id number] [address] [place] [address], [place] [address] 25 Nov, 2011 [facility] [address] [id number] [address] [place] [address], [place] [address] 14 Nov, 2011 [facility] [address] [id number] [address] [place] [address], [place] [address] Nov, [facility] [address] [id number] [address] [place] [address], [place] [address] Nov, [facility] [address] [id number] [address] [place] [address], [place] [address] Oct, [facility] [address] [id number] [address] [place] [address], [place] [address] Oct, [facility] [address] [id number] [address] [place] [address], [place] [address] Oct, [facility] [address] [id number] [address] [place] [address], [place] [address] Oct, [facility] [address] [id number] [address] [place] [address], [place] [address] Oct, [facility] [address] [id number] [address] [place] [address], [place] [address] Sep, [facility] [address] [id number] [address] [place] [address], [place] [address] Sep, [facility] [address] [id number] [address] [place] [address], [place] [address] Sep, [facility] [address] [id number] [address] [place] [address], [place] [address] 14 Sep, 2011 [facility] [address] [id number] [address] [place] [address], [place] [address] 14 Sep, 2011 [facility] [address] [id number] [address] [place] [address], [place] [address] Sep, [facility] [address] [id number] [address] [place] [address], [place] [address] Sep, [facility] [address] [id number] [address] [place] [address], [place] [address] Sep, [facility] [address] [id number] [address] [place] [address], [place] [address] Sep, [facility] [address] [id number] [address] [place] [address], [place] [address] Aug, [facility] [address] [id number] [address] [place] [address], [place] [address] Aug, [facility] [address] [id number] [address] [place] [id number] Aug, [facility] [address] [id number] [address] [place] [address], [place] [address] Aug, [facility] [address] [id number] [address] [place] [address], [place] [address] Aug, [facility] [address] [id number] [address] [place] [address], [place] [address] Aug, [facility] [address] [id number] [address] [place] [address] Aug, [facility] [address] [id number] [address] [place] [address], [place] [address] 16 Aug, 2011 [facility] [address] [id number] [address] [place] [address] Aug, [facility] [address] [id number] [address] [place] [address], [place] [address] Aug, [facility] [address] [id number] [address] [place] [address], [place] [address] Aug, [facility] [address] [id number] [address] [place] [address], [place] [address] Aug, [facility] [address] [id number] [address] [place] [address], [place] [address] Jul, [facility] [address] [id number] [address] [place] [id number] Jul, [facility] [address] [id number] [address] [place] [address], [place] [address] 24 Jul, 2011 [facility] [address] [id number] [address] [place] [id number] Jul, [facility] [address] [id number] [address] [place] [address] Jul, [facility] [address] [id number] [address] [place] [id number] Jul, [facility] [address] [id number] [address] [place] [id number] 18 Jul, 2011 [facility] [address] [id number] [address] [place] [id number] 11 Jul, 2011 [facility] [address] [id number] [address] [place] [id number] Jul, [facility] [address] [id number] [address] [place] [id number] 10 Jul, 2011 [facility] [address] [id number] [address] [place] [id number] Nov, [facility] [address] [facility] [id number] [address] [place] [id number] Aug, [facility] [address] [facility] [id number] [address] [place] [id number] Aug, [facility] [address] [facility] [id number] [address] [place] [id number] Aug, [facility] [address] [facility] [id number] [address] [place] [id number] Aug, [facility] [address] [facility] [id number] [address] [place] [id number] Jul, IMMUNIZATIONS No Known Immunizations SOCIAL HISTORY Never Assessed REASON FOR VISIT PLAN OF CARE VITAL SIGNS Height 65.75 in 2014-11-21 Weight 187.5 lbs 2014-11-21 Temperature 97.9 degrees Fahrenheit 2014-11-21 Heart Rate 88 bpm 2014-11-21 Respiratory Rate 24 2014-11-21 Blood pressure systolic 102 mmHg 2014-11-21 Blood pressure diastolic 80 mmHg 2014-11-21 MEDICATIONS Unknown Medications RESULTS No Results PROCEDURES No Known procedures INSTRUCTIONS MEDICATIONS ADMINISTERED No Known Medications MEDICAL (GENERAL) HISTORY Type Description Date Medical History diabetes Medical History thyroid Surgical History appendix Surgical History gallbladder Surgical History eyes Surgical History hip Surgical History MRI on back and pelvis 06/08 Hospitalization History surgeries Hospitalization History [facility] Su[facility] attempt by hanging 2015 Hospitalization History [facility] 01/30/2018-02/10/20 08 Hospitalization History [facility] 05/04/18-
--- OUTSIDE RECORDS SUMMARY | 2020-04-04 02:08 | XMS REPORT ---
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 Active 46144798 Problem Generalized anxiety disorder 300.02 A ctive 12181317 Problem Obsessive-compulsive disorders 300.3 Active 962109192 Problem Catatonic schizophrenia, 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 624603886 Problem Disorganized schizophrenia, 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 75939401 Problem Paranoid schizophrenia F20.0 Active 95514369 Problem Borderline personality disorder F60.3 Active 93758547 Problem Paranoid schizophrenia, unspecified condition 295.30 Active 74961380 Problem Schizoaffective disorder, depressive type F25.1 Active 53635349 Problem Bipolar disorder, unspecified 296.80 Active 38986103 Problem Schizoaffective disorder, unspecified F25.9 Active 52126904 Problem Attention deficit hyperactivity disorder (ADHD), inattentive type, 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 78308976 Problem Posttraumatic stress disorder F43.10 Active 36774601 Problem High risk medication use Z79.899 Activ e 764889958 ALLERGIES Substance Reaction Event Type Date Status Cephalexin visual disturbances Drug Allergy Jan, Active Cymbalta 30 Mg Capsule, Delayed Release(e.c.) Unknown No n Drug Allergy Jan, Active Brintellix 10 Mg Tablet Unknown Non Drug Allergy Jan, Active ENCOUNTERS Encounter Location Date Diagnosis [facility] [address] [facility] [id number] [address] [place] [phone] May, [facility] [address] [facility] [id number] [address] [place] [address] Mar, Paranoid schizophrenia F20.0 ; Posttraumatic stress disorder F43.10 ; Attention deficit hyperactivity disorder (ADHD), inattentive type, 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 and Borderline personality disorder F60.3 [facility] [address] [facility] [id number] [address] [place] [phone] February, Paranoid schizophrenia F20.0 [facility] [address] [facility] [id number] [address] [place] [address] Jan, Paranoid schizophrenia F20.0 ; Posttraumatic stress disorder F43.10 ; Attention deficit hyperactivity disorder (ADHD), inattentive type, 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 and Borderline personality disorder F60.3 [facility] [address] [facility] [id number] [address] [place] [phone] Dec, Paranoid schizophrenia F20.0 ; Posttraumatic stress disorder F43.10 ; Attention deficit hyperactivity disorder (ADHD), inattentive type, 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 and Borderline personality disorder F60.3 [facility] [address] [facility] [id number] [address] [place] [address] Dec, Paranoid schizophrenia F20.0 ; Posttraumatic stress disorder F43.10 ; Attention deficit hyperactivity disorder (ADHD), inattentive type, 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 and Borderline personality disorder F60.3 [facility] [address] [facility] [id number] [address] [place] [address] Oct, Paranoid schizophrenia F20.0 ; Posttraumatic stress disorder F43.10 ; Attention deficit hyperactivity disorder (ADHD), inattentive type, 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 and Borderline personality disorder F60.3 [facility] [address] [facility] [id number] [address] [place] [address] Oct, Paranoid schizophrenia F20.0 ; Posttraumatic stress disorder F43.10 ; Attention deficit hyperactivity disorder (ADHD), inattentive type, 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 and Borderline personality disorder F60.3 [facility] [address] [facility] [id number] [address] [place] [phone] Aug, [facility] [address] [facility] [id number] [address] [place] [phone] 05 Aug, 2018 Paranoid schizophrenia F20.0 ; Posttraumatic stress disorder F43.10 ; Attention deficit hyperactivity disorder (ADHD), inattentive type, 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 and Borderline personality disorder F60.3 [facility] [address] [id number] [address] [place] [phone] Jul, Dry skin dermatitis L85.3 [facility] [address] [id number] [address] [place] [phone] Jul, [facility] [address] [facility] [id number] [address] [place] [id number] Jul, Paranoid schizophrenia F20.0 [facility] [address] [id number] [address] [place] [address] May, Paranoid schizophrenia F20.0 ; Posttraumatic stress disorder F43.10 ; Attention deficit hyperactivity disorder (ADHD), inattentive type, 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 and Borderline personality disorder F60.3 [facility] [address] [id number] [address] [place] [phone] May, [facility] [address] [id number] [address] [place] [phone] May, Paranoid schizophrenia F20.0 [facility] [address] [facility] [id number] [address] [place] [address] May, Paranoid schizophrenia F20.0 ; Posttraumatic stress disorder F43.10 ; Attention deficit hyperactivity disorder (ADHD), inattentive type, 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 and Borderline personality disorder F60.3 [facility] [address] [id number] [address] [place] [address] Apr, [facility] [address] [id number] [address] [place] [phone] Apr, Paranoid schizophrenia F20.0 ; Posttraumatic stress disorder F43.10 ; Attention deficit hyperactivity disorder (ADHD), inattentive type, 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 and Borderline personality disorder F60.3 [facility] [address] [id number] [address] [place] [address] Apr, [facility] [address] [id number] [address] [place] [address] Apr, Schizoaffective disorder, de pressive type F25.1 and Borderline personality disorder F60.3 [facility] [address] [id number] [address] [place] [address], [place] [address] Apr, Paranoid schizophrenia F20.0 ; Posttraumatic stress disorder F43.10 ; Attention deficit hyperactivity disorder (ADHD), inattentive type, 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 and Borderline personality disorder F60.3 [facility] [address] [id number] [address] [place] [address] Apr, [facility] [address] [id number] [address] [place] [address] Apr, Paranoid schizophrenia F20.0 ; Posttraumatic stress disorder F43.10 ; Attention deficit hyperactivity disorder (ADHD), inattentive type, 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 and Borderline personality disorder F60.3 [facility] [address] [id number] [address] [place] [address] Apr, [facility] [address] [id number] [address] [place] [address] Mar, Paranoid schizophrenia F20.0 [facility] [address] [id number] [address] [place] [address] Mar, [facility] [address] [id number] [address] [place] [address] Mar, Paranoid schizophrenia F20.0 ; Posttraumatic stress disorder F43.10 ; Attention deficit hyperactivity disorder (ADHD), inattentive type, 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 and Borderline personality disorder F60.3 [facility] [address] [id number] [address] [place] [address] February, Paranoid schizophrenia F20.0 [facility] [address] [id number] [address] [place] [address] February, Paranoid schizophrenia F20.0 ; Posttraumatic stress disorder F43.10 ; Attention deficit hyperactivity disorder (ADHD), inattentive type, 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 and Borderline personality disorder F60.3 [facility] [address] [facility] [id number] [address] [place] [address] February, Paranoid schizophrenia F20.0 ; Posttraumatic stress disorder F43.10 ; Attention deficit hyperactivity disorder (ADHD), inattentive type, 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 and Borderline personality disorder F60.3 [facility] [address] [facility] [id number] [address] [place] [phone] February, [facility] [address] [facility] [id number] [address] [place] [address] February, Paranoid schizophrenia F20.0 [facility] [address] [facility] [id number] [address] [place] [address] February, Paranoid schizophrenia F20.0 [facility] [address] [facility] [id number] [address] [place] [address] February, Paranoid schizophrenia F20.0 ; Posttraumatic stress disorder F43.10 ; Attention deficit hyperactivity disorder (ADHD), inattentive type, 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 and Borderline personality disorder F60.3 [facility] [address] [facility] [id number] [address] [place] [address] Jan, Paranoid schizophrenia F20.0 ; Posttraumatic stress disorder F43.10 ; Attention deficit hyperactivity disorder (ADHD), inattentive type, 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 and Borderline personality disorder F60.3 [facility] [address] [facility] [id number] [address] [place] [address] Jan, Paranoid schizophrenia F20.0 [facility] [address] [facility] [id number] [address] [place] [address] Jan, Paranoid schizophrenia F20.0 [facility] [address] [facility] [id number] [address] [place] [address] Jan, Paranoid schizophrenia F20.0 ; Posttraumatic stress disorder F43.10 ; Attention deficit hyperactivity disorder (ADHD), inattentive type, 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 and Borderline personality disorder F60.3 [facility] [address] [id number] [address] [place] [address] Dec, [facility] [address] [id number] [address] [place] [address] Nov, Paranoid schizophrenia F20.0 ; Posttraumatic stress disorder F43.10 ; Attention deficit hyperactivity disorder (ADHD), inattentive type, 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 and Borderline personality disorder F60.3 [facility] [address] [facility] [id number] [address] [place] [address] Nov, [facility] [address] [facility] [id number] [address] [place] [address] Oct, Paranoid schizophrenia F20.0 [facility] [address] [facility] [id number] [address] [place] [address] Oct, Paranoid schizophrenia F20.0 ; Posttraumatic stress disorder F43.10 ; Attention deficit hyperactivity disorder (ADHD), inattentive type, 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 ; Borderline personality disorder F60.3 and Other residential (current) drug therapy Z79.899 [facility] [address] [facility] [id number] [address] [place] [address] Oct, [facility] [address] [facility] [id number] [address] [place] [address] Oct, [facility] [address] [facility] [id number] [address] [place] [address] Sep, [facility] [address] [facility] [id number] [address] [place] [address] Sep, Paranoid schizophrenia F20.0 ; Posttraumatic stress disorder F43.10 ; Attention deficit hyperactivity disorder (ADHD), inattentive type, 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 and Borderline personality disorder F60.3 [facility] [address] [facility] [id number] [address] [place] [address] Sep, Paranoid schizophrenia F20.0 [facility] [address] [facility] [id number] [address] [place] [address] Aug, Paranoid schizophrenia F20.0 ; Posttraumatic stress disorder F43.10 ; Attention deficit hyperactivity disorder (ADHD), inattentive type, 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 and Borderline personality disorder F60.3 [facility] [address] [facility] [id number] [address] [place] [address] Aug, Paranoid schizophrenia F20.0 ; Posttraumatic stress disorder F43.10 ; Attention deficit hyperactivity disorder (ADHD), inattentive type, 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 and Borderline personality disorder F60.3 [facility] [address] [id number] [address] [place] [address] Aug, [facility] [address] [id number] [address] [place] [address] Jul, Paranoid schizophrenia F20.0 ; Posttraumatic stress disorder F43.10 ; Attention deficit hyperactivity disorder (ADHD), inattentive type, 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 and Borderline personality disorder F60.3 [facility] [address] [facility] [id number] [address] [place] [address] Jul, Paranoid schizophrenia F20.0 [facility] [address] [facility] [id number] [address] [place] [address] Jul, Paranoid schizophrenia F20.0 ; Posttraumatic stress disorder F43.10 ; Attention deficit hyperactivity disorder (ADHD), inattentive type, 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 and Borderline personality disorder F60.3 [facility] [address] [facility] [id number] [address] [place] [address] Jun, Paranoid schizophrenia F20.0 ; Posttraumatic stress disorder F43.10 ; Attention deficit hyperactivity disorder (ADHD), inattentive type, 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 and Borderline personality disorder F60.3 [facility] [address] [facility] [id number] [address] [place] [address] May, 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 Z79.899 [facility] [address] [facility] [id number] [address] [place] [address] May, [facility] [address] [facility] [id number] [address] [place] [address] May, [facility] [address] [facility] [id number] [address] [place] [address] May, Attention deficit hyperactiv ity disorder (ADHD), inattentive type, mild F90.0 [facility] [address] [facility] [id number] [address] [place] [address] May, [facility] [address] [facility] [id number] [address] [place] [address] May, Attention deficit hyperactiv ity disorder (ADHD), inattentive type, mild F90.0 [facility] [address] [facility] [id number] [address] [place] [address] May, Paranoid schizophrenia F20.0 ; Posttraumatic stress disorder F43.10 ; Attention deficit hyperactivity disorder (ADHD), inattentive type, 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 and Other 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 turner (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) 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 Z79.899 [facility] [address] [facility] [id number] [address] [place] [address] Apr, Paranoid schizophrenia F20.0 [facility] [address] [facility] [id number] [address] [place] [address] Apr, Paranoid schizophrenia F20.0 ; Posttraumatic stress disorder F43.10 and Attention deficit hyperactivity disorder (ADHD), inattentive type, 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 [facility] [address] [facility] [id number] [address] [place] [phone] February, [facility] [address] [facility] [id number] [address] [place] [address] February, Paranoid schizophrenia F20.0 ; Posttraumatic stress disorder F43.10 and Attention deficit hyperactivity disorder (ADHD), inattentive type, 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 [facility] [address] [facility] [id number] [address] [place] [address] February, Paranoid schizophrenia F20.0 ; Posttraumatic stress disorder F43.10 and Attention deficit hyperactivity disorder (ADHD), inattentive type, 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 [facility] [address] [id number] [address] [place] [id number] Jan, Paranoid schizophrenia F20.0 ; Posttraumatic stress disorder F43.10 and Attention deficit hyperactivity disorder (ADHD), inattentive type, 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 [facility] [address] [id number] [address] [place] [id number] Dec, Dental examination Z01.20 [facility] [address] [id number] [address] [place] [address] [id number] Nov, Dental examination Z01.20 [facility] [address] [id number] [address] [place] [address] [id number] Nov, Dental examination Z01.20 [facility] [address] [id number] [address] [place] [address] [id number] Nov, Dental caries K02.9 [facility] [address] [facility] [id number] [address] [place] [address] Nov, High risk medication use Z79 .899 [facility] [address] [id number] [address] [place] [address] Nov, Paranoid schizophrenia F20.0 ; Posttraumatic stress disorder F43.10 ; Attention deficit hyperactivity disorder (ADHD), inattentive type, 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 and Borderline personality disorder in adult F60.3 [facility] [address] [id number] [address] [place] [address] [id number] Oct, Dental caries K02.9 [facility] [address] [id number] [address] [place] [address] Sep, Paranoid schizophrenia F20.0 ; Posttraumatic stress disorder F43.10 and Attention deficit hyperactivity disorder (ADHD), inattentive type, 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 [facility] [address] [id number] [address] [place] [address] Aug, Paranoid schizophrenia F20.0 ; Posttraumatic stress disorder F43.10 and Attention deficit hyperactivity disorder (ADHD), inattentive type, 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 [facility] [address] [id number] [address] [place] [phone] Aug, Strep throat J02.0 and Cough R05 [facility] [address] [id number] [address] [place] [address] Aug, [facility] [address] [facility] [id number] [address] [place] [address] Jul, Paranoid schizophrenia F20.0 ; Posttraumatic stress disorder F43.10 and Attention deficit hyperactivity disorder (ADHD), inattentive type, 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 [facility] [address] [id number] [address] [place] [address] Jul, [facility] [address] [facility] [id number] [address] [place] [phone] Jun, Paranoid schizophrenia F20.0 ; Posttraumatic stress disorder F43.10 and Attention deficit hyperactivity disorder (ADHD), inattentive type, 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 [facility] [address] [id number] [address] [place] [address] [id number] Jun, Dental examination Z01.20 [facility] [address] [id number] [address] [place] [address] Jun, [facility] [address] [facility] [id number] [address] [place] [id number] May, Paranoid schizophrenia F20.0 [facility] [address] [facility] [id number] [address] [place] [id number] May, Paranoid schizophrenia F20.0 ; Posttraumatic stress disorder F43.10 and Attention deficit hyperactivity disorder (ADHD), inattentive type, 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 [facility] [address] [id number] [address] [place] [id number] May, [facility] [address] [id number] [address] [place] [address] May, Paranoid schizophrenia F20.0 [facility] [address] [facility] [id number] [address] [place] [phone] May, [facility] [address] [id number] [address] [place] [address] May, Paranoid schizophrenia F20.0 [facility] [address] [id number] [address] [place] [address] May, Schizoaffective disorder, un specified F25.9 [facility] [address] [id number] [address] [place] [id number] May, Schizoaffective disorder, un specified F25.9 [facility] [address] [id number] [address] [place] [id number] May, [facility] [address] [id number] [address] [place] [address] May, Paranoid schizophrenia F20.0 [facility] [address] [id number] [address] [place] [address] May, Paranoid schizophrenia F20.0 ; Posttraumatic stress disorder F43.10 and Attention deficit hyperactivity disorder (ADHD), inattentive type, 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 [facility] [address] [id number] [address] [place] [phone] Mar, [facility] [address] [id number] [address] [place] [address] Mar, Paranoid schizophrenia F20.0 ; Posttraumatic stress disorder F43.10 and Attention deficit hyperactivity disorder (ADHD), inattentive type, 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 [facility] [address] [id number] [address] [place] [id number] Mar, Paranoid schizophrenia F20.0 [facility] [address] [id number] [address] [place] [address] Mar, Paranoid schizophrenia F20.0 ; Attention deficit hyperactivity disorder (ADHD), inattentive type, 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 and Posttraumatic stress disorder F43.10 [facility] [address] [id number] [address] [place] [id number] Mar, [facility] [address] [id number] [address] [place] [address] Mar, Paranoid schizophrenia F20.0 ; Posttraumatic stress disorder F43.10 and Attention deficit hyperactivity disorder (ADHD), inattentive type, 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 [facility] [address] [id number] [address] [place] [id number] February, [facility] [address] [id number] [address] [place] [phone] February, [facility] [address] [id number] [address] [place] [address] February, [facility] [address] [id number] [address] [place] [id number] February, [facility] [address] [id number] [address] [place] [phone] Jan, Paranoid schizophrenia F20.0 [facility] [address] [id number] [address] [place] [address] [id number] Jan, Dental examination Z01.20 [facility] [address] [id number] [address] [place] [address] [id number] Jan, Dental caries K02.9 [facility] [address] [id number] [address] [place] [address] [id number] Jan, Dental examination Z01.20 [facility] [address] [id number] [address] [place] [address] [id number] Dec, Encounter for dental examina tion Z01.20 [facility] [address] [id number] [address] [place] [id number] Dec, Paranoid schizophrenia F20.0 [facility] [address] [id number] [address] [place] [address] [id number] Dec, Dental examination Z01.20 [facility] [address] [id number] [address] [place] [id number] Dec, [facility] [address] [id number] [address] [place] [address] Dec, Paranoid schizophrenia F20.0 ; Posttraumatic stress disorder F43.10 and Attention deficit hyperactivity disorder (ADHD), inattentive type, 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 [facility] [address] [id number] [address] [place] [address] Nov, Schizoaffective disorder, un specified F25.9 [facility] [address] [id number] [address] [place] [address] Oct, Paranoid schizophrenia F20.0 [facility] [address] [id number] [address] [place] [address] Oct, [facility] [address] [id number] [address] [place] [address] Sep, Paranoid schizophrenia F20.0 ; Posttraumatic stress disorder F43.10 and Attention deficit hyperactivity disorder (ADHD), inattentive type, 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 [facility] [address] [id number] [address] [place] [address] Sep, [facility] [address] [id number] [address] [place] [address] Sep, Paranoid schizophrenia F20.0 ; Posttraumatic stress disorder F43.10 and Attention deficit hyperactivity disorder (ADHD), inattentive type, 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 [facility] [address] [id number] [address] [place] [address] Aug, Paranoid schizophrenia F20.0 [facility] [address] [id number] [address] [place] [address] Aug, [facility] [address] [id number] [address] [place] [address] Aug, Posttraumatic stress disorde r F43.10 ; Paranoid schizophrenia F20.0 and Attention deficit hyperactivity disorder (ADHD), inattentive type, 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 [facility] [address] [id number] [address] [place] [address] Jul, Bipolar disorder, unspecifie d F31.9 [facility] [address] [id number] [address] [place] [address] Jul, [facility] [address] [id number] [address] [place] [address] Jun, [facility] [address] [id number] [address] [place] [address] Jun, Schizoaffective disorder, ch ronic 295.72 ; Posttraumatic stress disorder 309.81 and Attention deficit disorder of childhood without mention of hyperactivity 314.00 [facility] [address] [id number] [address] [place] [address] May, [facility] [address] [id number] [address] [place] [address] May, [facility] [address] [facility] [id number] [address] [place] [address] May, Schizoaffective disorder, ch ronic 295.72 ; Posttraumatic stress disorder 309.81 ; Attention deficit disorder of childhood without mention of hyperactivity 314.00 and Bipolar disorder, unspecified 296.80 [facility] [address] [id number] [address] [place] [address] Apr, Schizoaffective disorder, ch ronic 295.72 [facility] [address] [facility] [id number] [address] [place] [address] Apr, [facility] [address] [facility] [id number] [address] [place] [address] Apr, Schizoaffective disorder, ch ronic 295.72 ; Posttraumatic stress disorder 309.81 and Attention deficit disorder of childhood without mention of hyperactivity 314.00 [facility] [address] [id number] [address] [place] [address] Mar, Disorganized schizophrenia, 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 [facility] [address] [facility] [id number] [address] [place] [address] Mar, [facility] [address] [id number] [address] [place] [address] Mar, [facility] [address] [id number] [address] [place] [address] Mar, [facility] [address] [id number] [address] [place] [address] Mar, [facility] [address] [id number] [address] [place] [address] February, Schizoaffective disorder, ch ronic 295.72 [facility] [address] [id number] [address] [place] [address] February, [facility] [address] [id number] [address] [place] [address] February, Attention 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 ; Posttraumatic stress disorder 309.81 and Schizoaffective disorder, chronic 295.72 [facility] [address] [id number] [address] [place] [address] Jan, [facility] [address] [id number] [address] [place] [address] Jan, [facility] [address] [id number] [address] [place] [address] Jan, [facility] [address] [id number] [address] [place] [address] Dec, [facility] [address] [id number] [address] [place] [address] Dec, [facility] [address] [id number] [address] [place] [address] Dec, [facility] [address] [id number] [address] [place] [address] Dec, [facility] [address] [id number] [address] [place] [address] Dec, [facility] [address] [id number] [address] [place] [address], [place] [address] Dec, [facility] [address] [id number] [address] [place] [address], [place] [address] Dec, [facility] [address] [id number] [address] [place] [address], [place] [address] Dec, [facility] [address] [id number] [address] [place] [address], [place] [address] Nov, 2014 [facility] [address] [id number] [address] [place] [address], [place] [address] Nov, [facility] [address] [id number] [address] [place] [address], [place] [address] Nov, [facility] [address] [id number] [address] [place] [address], [place] [address] Nov, [facility] [address] [id number] [address] [place] [address], [place] [address] Nov, [facility] [address] [id number] [address] [place] [address], [place] [address] Nov, [facility] [address] [id number] [address] [place] [address], [place] [address] Nov, [facility] [address] [id number] [address] [place] [address], [place] [address] Nov, [facility] [address] [id number] [address] [place] [address] Nov, [facility] [address] [id number] [address] [place] [address], [place] [address] Nov, [facility] [address] [id number] [address] [place] [address], [place] [address] Oct, [facility] [address] [id number] [address] [place] [address] Oct, [facility] [address] [id number] [address] [place] [address] 28 Oct, 2014 [facility] [address] [id number] [address] [place] [address], [place] [address] 15 Oct, 2014 [facility] [address] [id number] [address] [place] [address], [place] [address] 15 Oct, 2014 [facility] [address] [id number] [address] [place] [address], [place] [address] 13 Oct, 2014 [facility] [address] [id number] [address] [place] [address], [place] [address] 13 Oct, 2014 [facility] [address] [id number] [address] [place] [address], [place] [address] 17 Sep, 2014 [facility] [address] [id number] [address] [place] [address], [place] [address] 17 Sep, 2014 [facility] [address] [id number] [address] [place] [address], [place] [address] 15 Sep, 2014 [facility] [address] [id number] [address] [place] [address], [place] [address] 15 Sep, 2014 [facility] [address] [id number] [address] [place] [address], [place] [address] 20 Aug, 2014 [facility] [address] [id number] [address] [place] [address], [place] [address] 20 Aug, 2014 [facility] [address] [id number] [address] [place] [address], [place] [address] 14 Aug, 2014 [facility] [address] [id number] [address] [place] [address], [place] [address] 14 Aug, 2014 [facility] [address] [id number] [address] [place] [address], [place] [address] 14 Aug, 2014 [facility] [address] [id number] [address] [place] [address], [place] [address] 14 Aug, 2014 [facility] [address] [id number] [address] [place] [address], [place] [address] 29 Jul, 2014 [facility] [address] [id number] [address] [place] [address], [place] [address] 29 Jul, 2013 [facility] [address] [id number] [address] [place] [address], [place] [address] 24 Jul, 2014 [facility] [address] [id number] [address] [place] [address], [place] [address] 24 Jul, 2014 [facility] [address] [id number] [address] [place] [address], [place] [address] 15 Jul, 2014 [facility] [address] [id number] [address] [place] [address], [place] [address] 15 Jul, 2014 [facility] [address] [id number] [address] [place] [address], [place] [address] 27 Sep, 2013 [facility] [address] [id number] [address] [place] [address], [place] [address] 27 Sep, 2013 [facility] [address] [id number] [address] [place] [address], [place] [address] 26 Sep, 2013 [facility] [address] [id number] [address] [place] [address], [place] [address] 26 Sep, 2013 [facility] [address] [id number] [address] [place] [address], [place] [address] 26 Sep, 2013 [facility] [address] [id number] [address] [place] [address], [place] [address] 26 Sep, 2013 [facility] [address] [id number] [address] [place] [address], [place] [address] 16 Sep, 2013 [facility] [address] [id number] [address] [place] [address], [place] [address] 16 Sep, 2013 [facility] [address] [id number] [address] [place] [address], [place] [address] 16 Sep, 2013 [facility] [address] [id number] [address] [place] [address], [place] [address] 16 Sep, 2013 [facility] [address] [id number] [address] [place] [address], [place] [address] Jun, [facility] [address] [id number] [facility] [place] [address] May, [facility] [address] [id number] [address] [place] [address], [place] [address] May, [facility] [address] [id number] [address] [place] [address], [place] [address] May, [facility] [address] [id number] [address] [place] [address], [place] [address] May, [facility] [address] [id number] [address] [place] [address], [place] [address] May, [facility] [address] [id number] [address] [place] [address], [place] [address] May, [facility] [address] [id number] [address] [place] [address], [place] [address] May, [facility] [address] [id number] [address] [place] [address], [place] [address] May, [facility] [address] [id number] [address] [place] [address], [place] [address] May, [facility] [address] [id number] [address] [place] [address], [place] [address] May, [facility] [address] [id number] [address] [place] [address], [place] [address] Apr, [facility] [address] [id number] [address] [place] [address], [place] [address] Apr, [facility] [address] [id number] [address] [place] [address], [place] [address] Apr, [facility] [address] [id number] [address] [place] [address], [place] [address] Apr, [facility] [address] [id number] [address] [place] [address], [place] [address] Apr, [facility] [address] [id number] [address] [place] [address], [place] [address] 24 Apr, 2014 [facility] [address] [id number] [address] [place] [address], [place] [address] 17 Apr, 2014 [facility] [address] [id number] [address] [place] [address], [place] [address] Apr, [facility] [address] [id number] [address] [place] [address], [place] [address] Apr, [facility] [address] [id number] [address] [place] [address], [place] [address] Apr, [facility] [address] [id number] [address] [place] [address], [place] [address] Mar, [facility] [address] [id number] [address] [place] [address], [place] [address] Mar, [facility] [address] [id number] [address] [place] [address], [place] [address] Mar, [facility] [address] [id number] [address] [place] [address], [place] [address] 24 Mar, 2014 [facility] [address] [id number] [address] [place] [address], [place] [address] Mar, [facility] [address] [id number] [address] [place] [address], [place] [address] 18 Mar, 2014 [facility] [address] [id number] [address] [place] [address], [place] [address] 18 Mar, 2014 [facility] [address] [id number] [address] [place] [address], [place] [address] 16 Mar, 2014 [facility] [address] [id number] [address] [place] [address], [place] [address] 16 Mar, 2014 [facility] [address] [id number] [address] [place] [address], [place] [address] 13 Mar, 2014 [facility] [address] [id number] [address] [place] [address], [place] [address] Mar, [facility] [address] [id number] [facility] [place] [address] Mar, [facility] [address] [id number] [facility] [place] [address] Mar, [facility] [address] [id number] [facility] [place] [address] Mar, [facility] [address] [id number] [address] [place] [address], [place] [address] Mar, [facility] [address] [id number] [address] [place] [address], [place] [address] Mar, [facility] [address] [id number] [address] [place] [address], [place] [address] Mar, [facility] [address] [id number] [address] [place] [address], [place] [address] Mar, [facility] [address] [id number] [address] [place] [address], [place] [address] Mar, [facility] [address] [id number] [address] [place] [address], [place] [address] Mar, [facility] [address] [id number] [address] [place] [address], [place] [address] February, [facility] [address] [id number] [address] [place] [address], [place] [address] February, [facility] [address] [id number] [address] [place] [address], [place] [address] February, [facility] [address] [id number] [address] [place] [address], [place] [address] February, [facility] [address] [id number] [address] [place] [address], [place] [address] February, [facility] [address] [id number] [address] [place] [address], [place] [address] February, [facility] [address] [id number] [address] [place] [address], [place] [address] February, [facility] [address] [id number] [address] [place] [address], [place] [address] February, [facility] [address] [id number] [address] [place] [address], [place] [address] February, [facility] [address] [id number] [address] [place] [address], [place] [address] February, [facility] [address] [id number] [address] [place] [address], [place] [address] February, [facility] [address] [id number] [address] [place] [address], [place] [address] February, [facility] [address] [id number] [address] [place] [address], [place] [address] February, [facility] [address] [id number] [address] [place] [address], [place] [address] February, [facility] [address] [id number] [address] [place] [address], [place] [address] February, [facility] [address] [id number] [address] [place] [address], [place] [address] February, [facility] [address] [id number] [address] [place] [address], [place] [address] February, [facility] [address] [id number] [address] [place] [address], [place] [address] February, [facility] [address] [id number] [address] [place] [address], [place] [address] February, [facility] [address] [id number] [address] [place] [address], [place] [address] February, [facility] [address] [id number] [address] [place] [address], [place] [address] February, [facility] [address] [id number] [address] [place] [address], [place] [address] Jan, [facility] [address] [id number] [facility] [place] [address] 30 Jan, 2014 [facility] [address] [id number] [facility] [place] [address] 18 Jan, 2014 [facility] [address] [id number] [facility] [place] [address] 18 Jan, 2014 [facility] [address] [id number] [address] [place] [address], [place] [address] 18 Jan, 2014 [facility] [address] [id number] [address] [place] [address], [place] [address] 18 Jan, 2014 [facility] [address] [id number] [address] [place] [address], [place] [address] 10 Jan, 2014 [facility] [address] [id number] [address] [place] [address], [place] [address] 10 Jan, 2014 [facility] [address] [id number] [address] [place] [address], [place] [address] 21 Dec, 2013 [facility] [address] [id number] [address] [place] [address], [place] [address] 20 Dec, 2013 [facility] [address] [id number] [address] [place] [address], [place] [address] 20 Dec, 2013 [facility] [address] [id number] [address] [place] [address], [place] [address] 19 Dec, 2013 [facility] [address] [id number] [address] [place] [address], [place] [address] 19 Dec, 2013 [facility] [address] [id number] [address] [place] [address], [place] [address] 15 Dec, 2013 [facility] [address] [id number] [address] [place] [address], [place] [address] 15 Dec, 2013 [facility] [address] [id number] [address] [place] [address], [place] [address] 11 Dec, 2013 [facility] [address] [id number] [address] [place] [address], [place] [address] Dec, [facility] [address] [id number] [address] [place] [address], [place] [address] Dec, [facility] [address] [id number] [address] [place] [address], [place] [address] Nov, [facility] [address] [id number] [address] [place] [address], [place] [address] Nov, [facility] [address] [id number] [address] [place] [address], [place] [address] Nov, [facility] [address] [id number] [address] [place] [address], [place] [address] Nov, [facility] [address] [id number] [address] [place] [address], [place] [address] Nov, [facility] [address] [id number] [address] [place] [address], [place] [address] Oct, [facility] [address] [id number] [address] [place] [address], [place] [address] Oct, [facility] [address] [id number] [address] [place] [address], [place] [address] Oct, [facility] [address] [id number] [address] [place] [address], [place] [address] Sep, [facility] [address] [id number] [address] [place] [address], [place] [address] Sep, [facility] [address] [id number] [address] [place] [address], [place] [address] Sep, [facility] [address] [id number] [address] [place] [address], [place] [address] Sep, [facility] [address] [id number] [address] [place] [address], [place] [address] Aug, [facility] [address] [id number] [address] [place] [address], [place] [address] Aug, [facility] [address] [id number] [address] [place] [address], [place] [address] Jul, [facility] [address] [id number] [address] [place] [address], [place] [address] Jul, [facility] [address] [id number] [address] [place] [address], [place] [address] Jul, [facility] [address] [id number] [address] [place] [address], [place] [address] Jul, [facility] [address] [id number] [address] [place] [address], [place] [address] Jul, [facility] [address] [id number] [address] [place] [address], [place] [address] 25 Jun, 2013 [facility] [address] [id number] [address] [place] [address], [place] [address] 25 Jun, 2013 [facility] [address] [id number] [address] [place] [address], [place] [address] 19 Jun, 2013 [facility] [address] [id number] [address] [place] [address], [place] [address] 18 Jun, 2013 [facility] [address] [id number] [address] [place] [address], [place] [address] 16 Jun, 2013 [facility] [address] [id number] [address] [place] [address], [place] [address] 12 Jun, 2013 [facility] [address] [id number] [address] [place] [address], [place] [address] 11 Jun, 2013 [facility] [address] [id number] [address] [place] [address], [place] [address] 30 May, 2013 [facility] [address] [id number] [address] [place] [address], [place] [address] May, [facility] [address] [id number] [address] [place] [address], [place] [address] Apr, [facility] [address] [id number] [address] [place] [address], [place] [address] Apr, [facility] [facility] [address] [id number] [address] [place] [address], [place] [address] Apr, [facility] [address] [id number] [address] [place] [address], [place] [address] Mar, [facility] [address] [id number] [address] [place] [address], [place] [address] Mar, [facility] [address] [id number] [address] [place] [address], [place] [address] February, [facility] [address] [id number] [address] [place] [address], [place] [address] February, [facility] [address] [id number] [address] [place] [address], [place] [address] February, [facility] [address] [id number] [address] [place] [address], [place] [address] February, [facility] [address] [id number] [address] [place] [address], [place] [address] Jan, [facility] [address] [id number] [address] [place] [address], [place] [address] Jan, [facility] [address] [id number] [address] [place] [address], [place] [address] 16 Jan, 2013 [facility] [address] [id number] [address] [place] [address], [place] [address] Dec, [facility] [address] [id number] [address] [place] [address], [place] [address] Dec, [facility] [address] [id number] [address] [place] [address], [place] [address] Dec, [facility] [address] [id number] [address] [place] [address], [place] [address] Dec, [facility] [address] [id number] [address] [place] [address], [place] [address] Nov, [facility] [address] [id number] [address] [place] [address], [place] [address] Nov, [facility] [address] [id number] [address] [place] [address], [place] [address] Oct, [facility] [address] [id number] [address] [place] [address], [place] [address] Oct, [facility] [address] [id number] [address] [place] [address], [place] [address] Oct, [facility] [address] [id number] [address] [place] [address], [place] [address] Oct, [facility] [address] [id number] [address] [place] [address], [place] [address] Aug, [facility] [address] [id number] [address] [place] [address], [place] [address] Aug, [facility] [address] [id number] [address] [place] [address], [place] [address] Jun, [facility] [address] [id number] [address] [place] [address], [place] [address] May, [facility] [address] [id number] [address] [place] [address], [place] [address] May, [facility] [address] [id number] [address] [place] [address], [place] [address] Apr, [facility] [address] [id number] [address] [place] [address], [place] [address] Apr, [facility] [address] [id number] [address] [place] [address], [place] [address] Apr, [facility] [address] [id number] [address] [place] [address], [place] [address] Mar, [facility] [address] [id number] [address] [place] [address], [place] [address] Mar, [facility] [address] [id number] [address] [place] [address], [place] [address] Mar, [facility] [address] [id number] [address] [place] [address], [place] [address] Mar, [facility] [address] [id number] [address] [place] [address], [place] [address] Mar, [facility] [address] [id number] [address] [place] [address], [place] [address] February, [facility] [address] [id number] [address] [place] [address], [place] [address] February, [facility] [address] [id number] [address] [place] [address], [place] [address] February, [facility] [address] [id number] [address] [place] [address], [place] [address] February, [facility] [address] [id number] [address] [place] [address], [place] [address] February, [facility] [address] [id number] [address] [place] [address], [place] [address] February, [facility] [address] [id number] [address] [place] [address], [place] [address] February, [facility] [address] [id number] [address] [place] [address], [place] [address] Jan, [facility] [address] [id number] [address] [place] [address], [place] [address] 18 Jan, 2012 [facility] [address] [id number] [address] [place] [address], [place] [address] 17 Jan, 2012 [facility] [address] [id number] [address] [place] [address], [place] [address] 13 Jan, 2012 [facility] [address] [id number] [address] [place] [address], [place] [address] 10 Jan, 2012 [facility] [address] [id number] [address] [place] [address], [place] [address] 04 Jan, 2012 [facility] [address] [id number] [address] [place] [address], [place] [address] 30 Dec, 2011 [facility] [address] [id number] [facility] [place] [address] 24 Dec, 2011 [facility] [address] [id number] [address] [place] [address], [place] [address] 20 Dec, 2011 [facility] [address] [id number] [address] [place] [address], [place] [address] 13 Dec, 2011 [facility] [address] [id number] [address] [place] [address], [place] [address] 06 Dec, 2011 [facility] [address] [id number] [address] [place] [address], [place] [address] Nov, [facility] [address] [id number] [address] [place] [address], [place] [address] 27 Nov, 2011 [facility] [address] [id number] [address] [place] [address], [place] [address] Nov, [facility] [address] [id number] [address] [place] [address], [place] [address] 14 Nov, 2011 [facility] [address] [id number] [address] [place] [address], [place] [address] Nov, [facility] [address] [id number] [address] [place] [address], [place] [address] Nov, [facility] [address] [id number] [address] [place] [address], [place] [address] Oct, [facility] [address] [id number] [address] [place] [address], [place] [address] Oct, [facility] [address] [id number] [address] [place] [address], [place] [address] Oct, [facility] [address] [id number] [address] [place] [address], [place] [address] Oct, [facility] [address] [id number] [address] [place] [address], [place] [address] Oct, [facility] [address] [id number] [address] [place] [address], [place] [address] 27 Sep, 2011 [facility] [address] [id number] [address] [place] [address], [place] [address] 21 Sep, 2011 [facility] [address] [id number] [address] [place] [address], [place] [address] 20 Sep, 2011 [facility] [address] [id number] [address] [place] [address], [place] [address] 14 Sep, 2011 [facility] [address] [id number] [address] [place] [address], [place] [address] 14 Sep, 2011 [facility] [address] [id number] [address] [place] [address], [place] [address] 13 Sep, 2011 [facility] [address] [id number] [address] [place] [address], [place] [address] 12 Sep, 2011 [facility] [address] [id number] [address] [place] [address], [place] [address] 09 Sep, 2011 [facility] [address] [id number] [address] [place] [address], [place] [address] 05 Sep, 2011 [facility] [address] [id number] [address] [place] [address], [place] [address] 30 Aug, 2011 [facility] [address] [id number] [address] [place] [address], [place] [address] 30 Aug, 2011 [facility] [address] [id number] [address] [place] [address], [place] [address] Aug, [facility] [address] [id number] [address] [place] [address], [place] [address] Aug, [facility] [address] [id number] [address] [place] [address], [place] [address] Aug, [facility] [address] [id number] [address] [place] [address], [place] [address] 22 Aug, 2011 [facility] [address] [id number] [address] [place] [address], [place] [address] Aug, [facility] [address] [id number] [address] [place] [address] 16 Aug, 2011 [facility] [address] [id number] [address] [place] [address] Aug, [facility] [address] [id number] [address] [place] [address] Aug, [facility] [address] [id number] [address] [place] [address], [place] [address] Aug, [facility] [address] [id number] [address] [place] [address], [place] [address] Aug, [facility] [address] [id number] [address] [place] [address], [place] [address] Jul, [facility] [address] [id number] [address] [place] [address], [place] [address] Jul, [facility] [address] [id number] [address] [place] [address] Jul, [facility] [address] [id number] [address] [place] [address] Jul, [facility] [address] [id number] [address] [place] [address] Jul, [facility] [address] [id number] [address] [place] [address] Jul, [facility] [address] [id number] [address] [place] [address] 18 Jul, 2011 [facility] [address] [id number] [address] [place] [address] Jul, [facility] [address] [id number] [address] [place] [address] Jul, [facility] [address] [id number] [address] [place] [address] Jul, [facility] [address] [id number] [address] [place] [address] Nov, [facility] [address] [facility] [id number] [address] [place] [address] Aug, [facility] [address] [facility] [id number] [address] [place] [address] Aug, [facility] [address] [facility] [id number] [address] [place] [address] Aug, [facility] [address] [facility] [id number] [address] [place] [address] Aug, [facility] [address] [facility] [id number] [address] [place] [address] Jul, IMMUNIZATIONS No Known Immunizations SOCIAL HISTORY Never Assessed REASON FOR VISIT [facility] [place] PLAN OF CARE VITAL SIGNS MEDICATIONS Medication Instructions Dosage Frequency Start Date End Date Duration S tatus Fanapt 1mg(2)-2mg(2)- 4mg(2)-6mg(2) 1 Ta blet by Oral route 2 times per day for 8 days Jul, Active Cipro 500 mg 1 Tablet by Oral rou te 2 times per day for 4 days (taking total of 7 days) Jul, Active Abilify Maintena 400 mg 1 Injection by Intramuscular r oute 1 time per month Oct, Active Soma 350 mg 1 Tablet by Oral route 1 time per day for 15 dayPRN Oct, Active Periactin 4 mg 2 Tablet by Oral rou te 1 time per day qAM and6 Tablet by Oral route 1 time per day qHS Dec, Act bari Insulin Detemir 100 unit/mL (3 mL) 60 un its by Subcutaneous route 1 time per day qHS February, Active Lamictal 200 mg 1 tablet by Oral route 1 time per day Dec, Active Haloperidol 5 mg take 2 tablet by Oral route 2 times per day Dec, Active Benadryl 25 mg take 1 capsule by Or al route every 4-6 hours for 7 days PRN itching Apr, Active Hydrocodone-Acetaminophen 10-325 mg 1 Ta blet by Oral route every 8 hours PRN pain Jul, Active trihexyphenidyl 5 mg 1 tablet by Oral route 2 times per day Aug, Active Ativan 1 mg 1 tablet by Oral rou te 2 times per day PRN anxiety2 Tablet by Oral route 1 time per day PRN qHS Dec, Active Topamax 100 mg 1 Tablet by Oral route 2 daily for headache Dec, Active Remeron 30 mg 1 tablet by Oral route 1 time per day ta ke at bedtime Nov, Active RESULTS No Results PROCEDURES No Known [...]
--- OUTSIDE RECORDS SUMMARY | 2020-04-04 02:09 | XMS REPORT ---
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 Active 27916899 Problem Generalized anxiety disorder 300.02 A ctive 35596541 Problem Obsessive-compulsive disorders 300.3 Active 798858829 Problem Catatonic schizophrenia, 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 296575106 Problem Disorganized schizophrenia, 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 94776596 Problem Paranoid schizophrenia F20.0 Active 89887182 Problem Borderline personality disorder F60.3 Active 24310720 Problem Paranoid schizophrenia, unspecified condition 295.30 Active 49476487 Problem Schizoaffective disorder, depressive type F25.1 Active 41849802 Problem Bipolar disorder, unspecified 296.80 Active 71756154 Problem Schizoaffective disorder, unspecified F25.9 Active 61135061 Problem Attention deficit hyperactivity disorder (ADHD), inattentive type, 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 02926912 Problem Posttraumatic stress disorder F43.10 Active 02628611 Problem High risk medication use Z79.899 Activ e [id number] ALLERGIES No Information ENCOUNTERS Encounter Location Date Diagnosis [facility] [address] [facility] [id number] [address] [place] [phone] Mar, [facility] [address] [facility] [id number] [address] [place] [address] Jan, Paranoid schizophrenia F20.0 ; Posttraumatic stress disorder F43.10 ; Attention deficit hyperactivity disorder (ADHD), inattentive type, 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 and Borderline personality disorder F60.3 [facility] [address] [facility] [id number] [address] [place] [address] Dec, Paranoid schizophrenia F20.0 ; Posttraumatic stress disorder F43.10 ; Attention deficit hyperactivity disorder (ADHD), inattentive type, 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 and Borderline personality disorder F60.3 [facility] [address] [facility] [id number] [address] [place] [address] Dec, Paranoid schizophrenia F20.0 ; Posttraumatic stress disorder F43.10 ; Attention deficit hyperactivity disorder (ADHD), inattentive type, 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 and Borderline personality disorder F60.3 [facility] [address] [place] [id number] [place] [address] Oct, Paranoid schizophrenia F20.0 ; Posttraumatic stress disorder F43.10 ; Attention deficit hyperactivity disorder (ADHD), inattentive type, 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 and Borderline personality disorder F60.3 [facility] [address] [place] [id number] [address] [place] [address] Oct, Paranoid schizophrenia F20.0 ; Posttraumatic stress disorder F43.10 ; Attention deficit hyperactivity disorder (ADHD), inattentive type, 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 and Borderline personality disorder F60.3 [facility] [id number] [place] [address] Aug, [facility] [address] [place] [id number] [place] [address] Aug, Paranoid schizophrenia F20.0 ; Posttraumatic stress disorder F43.10 ; Attention deficit hyperactivity disorder (ADHD), inattentive type, 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 and Borderline personality disorder F60.3 [facility] [address] [facility] [id number] [address] [place] [address] Jul, Dry skin dermatitis L85.3 [facility] [address] [facility] [id number] [address] [place] [address] Jul, [facility] [address] [place] [id number] [address] [place] [address] Jul, Paranoid schizophrenia F20.0 [facility] [address] [place] [id number] [address] [place] [address] May, Paranoid schizophrenia F20.0 ; Posttraumatic stress disorder F43.10 ; Attention deficit hyperactivity disorder (ADHD), inattentive type, 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 and Borderline personality disorder F60.3 [facility] [address] [id number] [address] [place] [address] May, [facility] [address] [id number] [address] [place] [address] May, Paranoid schizophrenia F20.0 [facility] [address] [id number] [address] [place] [address] May, Paranoid schizophrenia F20.0 ; Posttraumatic stress disorder F43.10 ; Attention deficit hyperactivity disorder (ADHD), inattentive type, 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 and Borderline personality disorder F60.3 [facility] [address] [id number] [address] [place] [address] Apr, [facility] [address] [id number] [address] [place] [address] Apr, Paranoid schizophrenia F20.0 ; Posttraumatic stress disorder F43.10 ; Attention deficit hyperactivity disorder (ADHD), inattentive type, 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 and Borderline personality disorder F60.3 [facility] [address] [id number] [address] [place] [address] Apr, [facility] [address] [id number] [address] [place] [address] Apr, Schizoaffective disorder, de pressive type F25.1 and Borderline personality disorder F60.3 [facility] [address] [id number] [address] [place] [address] Apr, Paranoid schizophrenia F20.0 ; Posttraumatic stress disorder F43.10 ; Attention deficit hyperactivity disorder (ADHD), inattentive type, 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 and Borderline personality disorder F60.3 [facility] [address] [id number] [address] [place] [address] Apr, [facility] [address] [id number] [address] [place] [address] Apr, Paranoid schizophrenia F20.0 ; Posttraumatic stress disorder F43.10 ; Attention deficit hyperactivity disorder (ADHD), inattentive type, 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 and Borderline personality disorder F60.3 [facility] [address] [id number] [address] [place] [address] Apr, [facility] [address] [id number] [address] [place] [address] Mar, Paranoid schizophrenia F20.0 [facility] [address] [id number] [address] [place] [address] Mar, [facility] [address] [facility] [id number] [address] [place] [address] Mar, Paranoid schizophrenia F20.0 ; Posttraumatic stress disorder F43.10 ; Attention deficit hyperactivity disorder (ADHD), inattentive type, 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 and Borderline personality disorder F60.3 [facility] [address] [facility] [id number] [address] [place] [address] February, Paranoid schizophrenia F20.0 [facility] [address] [id number] [address] [place] [address] February, Paranoid schizophrenia F20.0 ; Posttraumatic stress disorder F43.10 ; Attention deficit hyperactivity disorder (ADHD), inattentive type, 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 and Borderline personality disorder F60.3 [facility] [address] [id number] [address] [place] [address] February, Paranoid schizophrenia F20.0 ; Posttraumatic stress disorder F43.10 ; Attention deficit hyperactivity disorder (ADHD), inattentive type, 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 and Borderline personality disorder F60.3 [facility] [address] [id number] [address] [place] [address] February, [facility] [address] [id number] [address] [place] [address] February, Paranoid schizophrenia F20.0 [facility] [address] [facility] [id number] [address] [place] [address] February, Paranoid schizophrenia F20.0 [facility] [address] [facility] [id number] [address] [place] [address] February, Paranoid schizophrenia F20.0 ; Posttraumatic stress disorder F43.10 ; Attention deficit hyperactivity disorder (ADHD), inattentive type, 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 and Borderline personality disorder F60.3 [facility] [address] [facility] [id number] [address] [place] [address] Jan, Paranoid schizophrenia F20.0 ; Posttraumatic stress disorder F43.10 ; Attention deficit hyperactivity disorder (ADHD), inattentive type, 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 and Borderline personality disorder F60.3 [facility] [address] [facility] [id number] [address] [place] [address] Jan, Paranoid schizophrenia F20.0 [facility] [address] [facility] [id number] [address] [place] [address] Jan, Paranoid schizophrenia F20.0 [facility] [address] [id number] [address] [place] [address] Jan, Paranoid schizophrenia F20.0 ; Posttraumatic stress disorder F43.10 ; Attention deficit hyperactivity disorder (ADHD), inattentive type, 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 and Borderline personality disorder F60.3 [facility] [address] [facility] [id number] [address] [place] [address] Dec, [facility] [address] [facility] [id number] [address] [place] [address] Nov, Paranoid schizophrenia F20.0 ; Posttraumatic stress disorder F43.10 ; Attention deficit hyperactivity disorder (ADHD), inattentive type, 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 and Borderline personality disorder F60.3 [facility] [address] [facility] [id number] [address] [place] [address] Nov, [facility] [address] [facility] [id number] [address] [place] [address] Oct, Paranoid schizophrenia F20.0 [facility] [address] [id number] [address] [place] [address] Oct, Paranoid schizophrenia F20.0 ; Posttraumatic stress disorder F43.10 ; Attention deficit hyperactivity disorder (ADHD), inattentive type, 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 ; Borderline personality disorder F60.3 and 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 Z79.899 [facility] [address] [id number] [address] [place] [address] Oct, [facility] [address] [id number] [address] [place] [address] Oct, [facility] [address] [id number] [address] [place] [address], [place] [address] Sep, [facility] [address] [id number] [address] [place] [address] Sep, Paranoid schizophrenia F20.0 ; Posttraumatic stress disorder F43.10 ; Attention deficit hyperactivity disorder (ADHD), inattentive type, 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 and Borderline personality disorder F60.3 [facility] [address] [id number] [address] [place] [address] Sep, Paranoid schizophrenia F20.0 [facility] [address] [id number] [address] [place] [address] Aug, Paranoid schizophrenia F20.0 ; Posttraumatic stress disorder F43.10 ; Attention deficit hyperactivity disorder (ADHD), inattentive type, 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 and Borderline personality disorder F60.3 [facility] [address] [id number] [address] [place] [address] Aug, Paranoid schizophrenia F20.0 ; Posttraumatic stress disorder F43.10 ; Attention deficit hyperactivity disorder (ADHD), inattentive type, 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 and Borderline personality disorder F60.3 [facility] [address] [id number] [address] [place] [address] 09 Aug, 2017 [facility] [address] [id number] [address] [place] [address] Jul, Paranoid schizophrenia F20.0 ; Posttraumatic stress disorder F43.10 ; Attention deficit hyperactivity disorder (ADHD), inattentive type, 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 and Borderline personality disorder F60.3 [facility] [address] [facility] [id number] [address] [place] [address] Jul, Paranoid schizophrenia F20.0 [facility] [address] [id number] [address] [place] [address] Jul, Paranoid schizophrenia F20.0 ; Posttraumatic stress disorder F43.10 ; Attention deficit hyperactivity disorder (ADHD), inattentive type, 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 and Borderline personality disorder F60.3 [facility] [address] [id number] [address] [place] [address] Jun, Paranoid schizophrenia F20.0 ; Posttraumatic stress disorder F43.10 ; Attention deficit hyperactivity disorder (ADHD), inattentive type, 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 and Borderline personality disorder F60.3 [facility] [address] [facility] [id number] [address] [place] [address] May, Other intermediate project manager (current) dr gabriel parra Z79.899 [facility] [address] [facility] [id number] [address] [place] [address] May, [facility] [address] [facility] [id number] [address] [place] [address] May, [facility] [address] [facility] [id number] [address] [place] [address] May, Attention deficit hyperactiv ity disorder (ADHD), inattentive type, mild F90.0 [facility] [address] [id number] [address] [place] [address] May, [facility] [address] [facility] [id number] [address] [place] [address] May, Attention deficit hyperactiv ity disorder (ADHD), inattentive type, mild F90.0 [facility] [address] [facility] [id number] [address] [place] [address] May, Paranoid schizophrenia F20.0 ; Posttraumatic stress disorder F43.10 ; Attention deficit hyperactivity disorder (ADHD), inattentive type, 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 and Other jail (current) drug therapy Z79.899 [facility] [address] [id number] [address] [place] [address] Apr, Paranoid schizophrenia F20.0 [facility] [address] [id number] [address] [place] [address] Apr, Paranoid schizophrenia F20.0 ; Posttraumatic stress disorder F43.10 and Attention deficit hyperactivity disorder (ADHD), inattentive type, 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 [facility] [address] [id number] [address] [place] [address] February, [facility] [address] [id number] [address] [place] [address] February, Paranoid schizophrenia F20.0 ; Posttraumatic stress disorder F43.10 and Attention deficit hyperactivity disorder (ADHD), inattentive type, 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 [facility] [address] [id number] [address] [place] [address] February, Paranoid schizophrenia F20.0 ; Posttraumatic stress disorder F43.10 and Attention deficit hyperactivity disorder (ADHD), inattentive type, 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 [facility] [address] [id number] [address] [place] [address] Jan, Paranoid schizophrenia F20.0 ; Posttraumatic stress disorder F43.10 and Attention deficit hyperactivity disorder (ADHD), inattentive type, 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 [facility] [address] [id number] [address] [place] [id number] Dec, Dental examination Z01.20 [facility] [address] [id number] [address] [place] [id number] Nov, Dental examination Z01.20 [facility] [address] [id number] [address] [place] [address] [id number] 23 Feb, 2017 Dental examination Z01.20 [facility] [address] [id number] [address] [place] [address] [id number] 14 Nov, 2016 Dental caries K02.9 [facility] [address] [facility] [id number] [address] [place] [address] 13 Nov, 2016 High risk medication use Z79 .899 [facility] [address] [facility] [id number] [address] [place] [address] 01 Nov, 2016 Paranoid schizophrenia F20.0 ; Posttraumatic stress disorder F43.10 ; Attention deficit hyperactivity disorder (ADHD), inattentive type, 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 and Borderline personality disorder in adult F60.3 [facility] [address] [id number] [address] [place] [id number] Oct, Dental caries K02.9 [facility] [address] [facility] [id number] [address] [place] [address] Sep, Paranoid schizophrenia F20.0 ; Posttraumatic stress disorder F43.10 and Attention deficit hyperactivity disorder (ADHD), inattentive type, 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 [facility] [address] [facility] [id number] [address] [place] [address] Aug, Paranoid schizophrenia F20.0 ; Posttraumatic stress disorder F43.10 and Attention deficit hyperactivity disorder (ADHD), inattentive type, 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 [facility] [address] [facility] [id number] [address] [place] [address] Aug, Strep throat J02.0 and Cough R05 [facility] [address] [facility] [id number] [address] [place] [address] Aug, [facility] [address] [facility] [id number] [address] [place] [address] Jul, Paranoid schizophrenia F20.0 ; Posttraumatic stress disorder F43.10 and Attention deficit hyperactivity disorder (ADHD), inattentive type, 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 [facility] [address] [facility] [id number] [address] [place] [address] Jul, [facility] [address] [id number] [address] [place] [address] Jun, Paranoid schizophrenia F20.0 ; Posttraumatic stress disorder F43.10 and Attention deficit hyperactivity disorder (ADHD), inattentive type, 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 [facility] [address] [id number] [address] [place] [address] [id number] Jun, Dental examination Z01.20 [facility] [address] [id number] [address] [place] [address] Jun, [facility] [address] [id number] [address] [place] [address] May, Paranoid schizophrenia F20.0 [facility] [address] [id number] [address] [place] [address] May, Paranoid schizophrenia F20.0 ; Posttraumatic stress disorder F43.10 and Attention deficit hyperactivity disorder (ADHD), inattentive type, 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 [facility] [address] [id number] [address] [place] [address] May, [facility] [address] [id number] [address] [place] [address] May, Paranoid schizophrenia F20.0 [facility] [address] [id number] [address] [place] [address] May, [facility] [address] [id number] [address] [place] [address] May, Paranoid schizophrenia F20.0 [facility] [address] [id number] [address] [place] [address] May, Schizoaffective disorder, un specified F25.9 [facility] [address] [id number] [address] [place] [address] May, Schizoaffective disorder, un specified F25.9 [facility] [address] [id number] [address] [place] [address] May, [facility] [address] [id number] [address] [address] May, Paranoid schizophrenia F20.0 [facility] [address] [id number] [address] [place] [address], [place] [address] May, Paranoid schizophrenia F20.0 ; Posttraumatic stress disorder F43.10 and Attention deficit hyperactivity disorder (ADHD), inattentive type, 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 [facility] [address] [id number] [address] [place] [address] Mar, [facility] [address] [id number] [address] [place] [address], [place] [address] Mar, Paranoid schizophrenia F20.0 ; Posttraumatic stress disorder F43.10 and Attention deficit hyperactivity disorder (ADHD), inattentive type, 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 [facility] [address] [id number] [address] [place] [address], [place] [address] Mar, Paranoid schizophrenia F20.0 [facility] [address] [id number] [address] [place] [address], [place] [address] Mar, Paranoid schizophrenia F20.0 ; Attention deficit hyperactivity disorder (ADHD), inattentive type, 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 and Posttraumatic stress disorder F43.10 [facility] [address] [id number] [address] [place] [address], [place] [address] Mar, [facility] [address] [id number] [address] [place] [address] Mar, Paranoid schizophrenia F20.0 ; Posttraumatic stress disorder F43.10 and Attention deficit hyperactivity disorder (ADHD), inattentive type, 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 [facility] [address] [id number] [address] [place] [address], [place] [address] February, [facility] [address] [id number] [address] [place] [address], [place] [address] February, [facility] [address] [id number] [address] [place] [address] February, [facility] [address] [id number] [address] [place] [address] February, [facility] [address] [id number] [address] [place] [address] Jan, Paranoid schizophrenia F20.0 [facility] [address] [id number] [address] [place] [address] [id number] Jan, Dental examination Z01.20 [facility] [address] [id number] [address] [place] [address] [id number] Jan, Dental caries K02.9 [facility] [address] [id number] [address] [place] [id number] Jan, Dental examination Z01.20 [facility] [address] [id number] [address] [place] [address] [id number] Dec, Encounter for dental examina tion Z01.20 [facility] [address] [id number] [address] [place] [address] Dec, Paranoid schizophrenia F20.0 [facility] [address] [id number] [address] [place] [address] [id number] Dec, Dental examination Z01.20 [facility] [address] [id number] [address] [place] [address] Dec, [facility] [address] [id number] [address] [place] [address] Dec, Paranoid schizophrenia F20.0 ; Posttraumatic stress disorder F43.10 and Attention deficit hyperactivity disorder (ADHD), inattentive type, 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 [facility] [address] [id number] [address] [place] [address] Nov, Schizoaffective disorder, un specified F25.9 [facility] [address] [id number] [address] [place] [address] Oct, Paranoid schizophrenia F20.0 [facility] [address] [id number] [address] [place] [address] Oct, [facility] [address] [facility] [id number] [address] [place] [address] Sep, Paranoid schizophrenia F20.0 ; Posttraumatic stress disorder F43.10 and Attention deficit hyperactivity disorder (ADHD), inattentive type, 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 [facility] [address] [id number] [address] [place] [address] Sep, [facility] [address] [id number] [address] [place] [address] Sep, Paranoid schizophrenia F20.0 ; Posttraumatic stress disorder F43.10 and Attention deficit hyperactivity disorder (ADHD), inattentive type, 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 [facility] [address] [id number] [address] [place] [address] Aug, Paranoid schizophrenia F20.0 [facility] [address] [facility] [id number] [address] [place] [address] Aug, [facility] [address] [facility] [id number] [address] [place] [address] Aug, Posttraumatic stress disorde r F43.10 ; Paranoid schizophrenia F20.0 and Attention deficit hyperactivity disorder (ADHD), inattentive type, 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 [facility] [address] [facility] [id number] [address] [place] [address] Jul, Bipolar disorder, unspecifie d F31.9 [facility] [address] [facility] [id number] [address] [place] [address] Jul, [facility] [address] [facility] [id number] [address] [place] [address] Jun, [facility] [address] [facility] [id number] [address] [place] [address] Jun, Schizoaffective disorder, ch ronic 295.72 ; Posttraumatic stress disorder 309.81 and Attention deficit disorder of childhood without mention of hyperactivity 314.00 [facility] [address] [facility] [id number] [address] [place] [address] May, [facility] [address] [id number] [address] [place] [address] May, [facility] [address] [id number] [address] [place] [address] May, Schizoaffective disorder, ch ronic 295.72 ; Posttraumatic stress disorder 309.81 ; Attention deficit disorder of childhood without mention of hyperactivity 314.00 and Bipolar disorder, unspecified 296.80 [facility] [address] [id number] [address] [place] [address] Apr, Schizoaffective disorder, ch ronic 295.72 [facility] [address] [id number] [address] [place] [address] Apr, [facility] [address] [id number] [address] [place] [address] Apr, Schizoaffective disorder, ch ronic 295.72 ; Posttraumatic stress disorder 309.81 and Attention deficit disorder of childhood without mention of hyperactivity 314.00 [facility] [address] [id number] [address] [place] [address] Mar, Disorganized schizophrenia, 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 [facility] [address] [id number] [address] [place] [address] Mar, [facility] [address] [id number] [address] [place] [address] Mar, [facility] [address] [facility] [id number] [address] [place] [address] Mar, [facility] [address] [id number] [address] [place] [address] Mar, [facility] [address] [facility] [id number] [address] [place] [address] February, Schizoaffective disorder, ch ronic 295.72 [facility] [address] [facility] [id number] [address] [place] [address] February, [facility] [address] [id number] [address] [place] [address] February, Attention 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 ; Posttraumatic stress disorder 309.81 and Schizoaffective disorder, chronic 295.72 [facility] [address] [id number] [address] [place] [address] Jan, [facility] [address] [id number] [address] [place] [address] Jan, [facility] [address] [id number] [address] [place] [address] Jan, [facility] [address] [id number] [address] [place] [address] Dec, [facility] [address] [id number] [address] [place] [address] Dec, [facility] [address] [id number] [address] [place] [address] Dec, [facility] [address] [id number] [address] [place] [address] Dec, [facility] [address] [id number] [address] [place] [address] Dec, [facility] [address] [id number] [address] [place] [address] Dec, [facility] [address] [id number] [address] [place] [address] Dec, [facility] [address] [id number] [address] [place] [address] Dec, [facility] [address] [id number] [address] [place] [address] Nov, [facility] [address] [id number] [address] [place] [address] Nov, [facility] [address] [id number] [address] [place] [address] [place] [address] Nov, 2014 [facility] [address] [id number] [address] [place] [address], [place] [address] Nov, 2014 [facility] [address] [id number] [address] [place] [address], [place] [address] Nov, 2014 [facility] [address] [id number] [address] [place] [address], [place] [address] Nov, 2014 [facility] [address] [id number] [address] [place] [address], [place] [address] Nov, 2014 [facility] [address] [id number] [address] [place] [address], [place] [address] Nov, 2014 [facility] [address] [id number] [address] [place] [address], [place] [address] Nov, [facility] [address] [id number] [address] [place] [address], [place] [address] Nov, [facility] [address] [id number] [address] [place] [address], [place] [address] Oct, [facility] [address] [id number] [address] [place] [address], [place] [address] Oct, [facility] [address] [id number] [address] [place] [address] Oct, [facility] [address] [id number] [address] [place] [address], [place] [address] Oct, [facility] [address] [id number] [address] [place] [address] Oct, [facility] [address] [id number] [address] [place] [address], [place] [address] Oct, [facility] [address] [id number] [address] [place] [address], [place] [address] Oct, [facility] [address] [id number] [address] [place] [address], [place] [address] Sep, [facility] [address] [id number] [address] [place] [address], [place] [address] 17 Sep, 2014 [facility] [address] [id number] [address] [place] [address], [place] [address] 15 Sep, 2014 [facility] [address] [id number] [address] [place] [address], [place] [address] 15 Sep, 2014 [facility] [address] [id number] [address] [place] [address], [place] [address] Aug, [facility] [address] [id number] [address] [place] [address], [place] [address] Aug, [facility] [address] [id number] [address] [place] [address], [place] [address] Aug, [facility] [address] [id number] [address] [place] [address], [place] [address] Aug, [facility] [address] [id number] [address] [place] [address], [place] [address] Aug, [facility] [address] [id number] [address] [place] [address], [place] [address] Aug, [facility] [address] [id number] [address] [place] [address], [place] [address] Jul, [facility] [address] [id number] [address] [place] [address], [place] [address] 29 Jul, 2014 [facility] [address] [id number] [address] [place] [address], [place] [address] 24 Jul, 2014 [facility] [address] [id number] [address] [place] [address], [place] [address] 24 Jul, 2014 [facility] [address] [id number] [address] [place] [address], [place] [address] 15 Jul, 2014 [facility] [address] [id number] [address] [place] [address], [place] [address] 15 Jul, 2014 [facility] [address] [id number] [address] [place] [address] [place] [address] 27 Sep, 2013 [facility] [address] [id number] [facility] [place] [address] 27 Sep, 2013 [facility] [address] [id number] [facility] [place] [place] [address] 26 Sep, 2013 [facility] [address] [id number] [address] [place] [address], [place] [address] 26 Sep, 2013 [facility] [address] [id number] [address] [place] [address], [place] [address] 26 Jun, 2013 [facility] [address] [id number] [address] [place] [address], [place] [address] 26 Jun, 2013 [facility] [address] [id number] [address] [place] [address], [place] [address] 16 Jun, 2013 [facility] [address] [id number] [address] [place] [address], [place] [address] 16 Jun, 2013 [facility] [address] [id number] [address] [place] [address], [place] [address] 16 Jun, 2013 [facility] [address] [id number] [address] [place] [address], [place] [address] 16 Jun, 2013 [facility] [address] [id number] [address] [place] [address], [place] [address] 04 Jun, 2013 [facility] [address] [id number] [address] [place] [address], [place] [address] May, 2013 [facility] [address] [id number] [address] [place] [address], [place] [address] May, [facility] [address] [id number] [address] [place] [address], [place] [address] May, 2013 [facility] [address] [id number] [address] [place] [address], [place] [address] May, 2013 [facility] [address] [id number] [address] [place] [address], [place] [address] May, 2013 [facility] [address] [id number] [facility] [place] [place] [address] May, [facility] [address] [id number] [facility] [place] [place] [address] May, [facility] [address] [id number] [address] [place] [address], [place] [address] May, [facility] [address] [id number] [address] [place] [address], [place] [address] May, [facility] [address] [id number] [address] [place] [address], [place] [address] May, [facility] [address] [id number] [address] [place] [address], [place] [address] Apr, [facility] [address] [id number] [address] [place] [address], [place] [address] Apr, [facility] [address] [id number] [address] [place] [address], [place] [address] Apr, [facility] [address] [id number] [address] [place] [address], [place] [address] Apr, [facility] [address] [id number] [address] [place] [address], [place] [address] Apr, [facility] [address] [id number] [address] [place] [address], [place] [address] Apr, [facility] [address] [id number] [address] [place] [address], [place] [address] Apr, [facility] [address] [id number] [address] [place] [address], [place] [address] Apr, [facility] [address] [id number] [address] [place] [address], [place] [address] Apr, [facility] [address] [id number] [address] [place] [address], [place] [address] Apr, [facility] [address] [id number] [address] [place] [address], [place] [address] Mar, [facility] [address] [id number] [facility] [place] [place] [address] Mar, [facility] [address] [id number] [facility] [place] [place] [address] 25 Mar, 2014 [facility] [address] [id number] [facility] [place] [place] [address] 24 Mar, 2014 [facility] [address] [id number] [address] [place] [address], [place] [address] 20 Mar, 2014 [facility] [address] [id number] [address] [place] [address], [place] [address] 18 Mar, 2014 [facility] [address] [id number] [address] [place] [address], [place] [address] 18 Mar, 2014 [facility] [address] [id number] [address] [place] [address], [place] [address] 16 Mar, 2014 [facility] [address] [id number] [address] [place] [address], [place] [address] 16 Mar, 2014 [facility] [address] [id number] [address] [place] [address], [place] [address] 13 Mar, 2014 [facility] [address] [id number] [address] [place] [address], [place] [address] 13 Mar, 2014 [facility] [address] [id number] [address] [place] [address], [place] [address] 11 Mar, 2014 [facility] [address] [id number] [address] [place] [address], [place] [address] 11 Mar, 2014 [facility] [address] [id number] [address] [place] [address], [place] [address] 10 Mar, 2014 [facility] [address] [id number] [address] [place] [address], [place] [address] 09 Mar, 2014 [facility] [address] [id number] [address] [place] [address], [place] [address] 09 Mar, 2014 [facility] [address] [id number] [facility] [place] [place] [address] Mar, [facility] [address] [id number] [address] [place] [address], [place] [address] Mar, [facility] [address] [id number] [address] [place] [address], [place] [address] Mar, [facility] [address] [id number] [address] [place] [address], [place] [address] Mar, [facility] [address] [id number] [address] [place] [address], [place] [address] February, [facility] [address] [id number] [address] [place] [address], [place] [address] February, [facility] [address] [id number] [address] [place] [address], [place] [address] February, [facility] [address] [id number] [address] [place] [address], [place] [address] February, [facility] [address] [id number] [address] [place] [address], [place] [address] February, [facility] [address] [id number] [address] [place] [address], [place] [address] February, [facility] [address] [id number] [address] [place] [address], [place] [address] February, [facility] [address] [id number] [address] [place] [address], [place] [address] February, [facility] [address] [id number] [address] [place] [address], [place] [address] February, [facility] [address] [id number] [address] [place] [address], [place] [address] February, [facility] [address] [id number] [address] [place] [address], [place] [address] February, [facility] [address] [id number] [address] [place] [address], [place] [address] February, [facility] [address] [id number] [address] [place] [address], [place] [address] February, [facility] [address] [id number] [address] [place] [address], [place] [address] February, [facility] [address] [id number] [address] [place] [address], [place] [address] February, [facility] [address] [id number] [address] [place] [address], [place] [address] February, [facility] [address] [id number] [address] [place] [address], [place] [address] February, [facility] [address] [id number] [address] [place] [address], [place] [address] February, [facility] [address] [id number] [address] [place] [address], [place] [address] February, [facility] [address] [id number] [address] [place] [address], [place] [address] February, [facility] [address] [id number] [address] [place] [address], [place] [address] February, [facility] [address] [id number] [address] [place] [address], [place] [address] Jan, [facility] [address] [id number] [address] [place] [address], [place] [address] Jan, [facility] [address] [id number] [address] [place] [address], [place] [address] Jan, [facility] [address] [id number] [address] [place] [address], [place] [address] Jan, [facility] [address] [id number] [address] [place] [address], [place] [address] Jan, [facility] [address] [id number] [address] [place] [address], [place] [address] Jan, [facility] [address] [id number] [address] [place] [address], [place] [address] 10 Jan, 2014 [facility] [address] [id number] [facility] [place] [place] [address] 10 Jan, 2014 [facility] [address] [id number] [address] [place] [address], [place] [address] 21 Dec, 2013 [facility] [address] [id number] [address] [place] [address], [place] [address] 20 Dec, 2013 [facility] [address] [id number] [address] [place] [address], [place] [address] 20 Dec, 2013 [facility] [address] [id number] [address] [place] [address], [place] [address] 19 Dec, 2013 [facility] [address] [id number] [address] [place] [address], [place] [address] 19 Dec, 2013 [facility] [address] [id number] [address] [place] [address], [place] [address] 15 Dec, 2013 [facility] [address] [id number] [address] [place] [address], [place] [address] 15 Dec, 2013 [facility] [address] [id number] [address] [place] [address], [place] [address] 11 Dec, 2013 [facility] [address] [id number] [address] [place] [address], [place] [address] 10 Dec, 2013 [facility] [address] [id number] [address] [place] [address], [place] [address] 10 Dec, 2013 [facility] [address] [id number] [address] [place] [address], [place] [address] 18 Nov, 2013 [facility] [address] [id number] [address] [place] [address], [place] [address] 17 Nov, 2013 [facility] [address] [id number] [address] [place] [address], [place] [address] 17 Nov, 2013 [facility] [address] [id number] [address] [place] [address], [place] [address] 05 Nov, 2013 [facility] [address] [id number] [address] [place] [address], [place] [address] Nov, [facility] [address] [id number] [address] [place] [address], [place] [address] Oct, [facility] [address] [id number] [address] [place] [address], [place] [address] Oct, [facility] [address] [id number] [address] [place] [address], [place] [address] Oct, [facility] [address] [id number] [address] [place] [address], [place] [address] Sep, [facility] [address] [id number] [address] [place] [address], [place] [address] Sep, [facility] [address] [id number] [address] [place] [address], [place] [address] Sep, [facility] [address] [id number] [address] [place] [address], [place] [address] Sep, [facility] [address] [id number] [address] [place] [address], [place] [address] Aug, [facility] [address] [id number] [address] [place] [address], [place] [address] Aug, [facility] [address] [id number] [address] [place] [address], [place] [address] Jul, [facility] [address] [id number] [address] [place] [address], [place] [address] Jul, [facility] [address] [id number] [address] [place] [address], [place] [address] Jul, [facility] [address] [id number] [address] [place] [address], [place] [address] Jul, [facility] [address] [id number] [address] [place] [address], [place] [address] Jul, [facility] [address] [id number] [address] [place] [address], [place] [address] 25 Jun, 2013 [facility] [address] [id number] [address] [place] [address], [place] [address] 25 Jun, 2013 [facility] [address] [id number] [address] [place] [address], [place] [address] 19 Jun, 2013 [facility] [address] [id number] [address] [place] [address], [place] [address] 18 Jun, 2013 [facility] [address] [id number] [address] [place] [address], [place] [address] 16 Jun, 2013 [facility] [address] [id number] [address] [place] [address], [place] [address] 12 Jun, 2013 [facility] [address] [id number] [address] [place] [address], [place] [address] 11 Jun, 2013 [facility] [address] [id number] [address] [place] [address], [place] [address] May, [facility] [address] [id number] [address] [place] [address], [place] [address] May, [facility] [address] [id number] [address] [place] [address], [place] [address] Apr, [facility] [address] [id number] [address] [place] [address], [place] [address] Apr, [facility] [address] [id number] [address] [place] [address], [place] [address] Apr, [facility] [address] [id number] [address] [place] [address], [place] [address] Mar, [facility] [address] [address] [id number] [address] [place] [address], [place] [address] Mar, [facility] [address] [id number] [address] [place] [address], [place] [address] February, [facility] [address] [id number] [address] [place] [address], [place] [address] February, [facility] [address] [id number] [address] [place] [address], [place] [address] February, [facility] [address] [id number] [address] [place] [address], [place] [address] February, [facility] [address] [id number] [address] [place] [address], [place] [address] Jan, [facility] [address] [id number] [address] [place] [address], [place] [address] Jan, [facility] [address] [id number] [address] [place] [address], [place] [address] 16 Jan, 2013 [facility] [address] [id number] [address] [place] [address], [place] [address] 29 Dec, 2012 [facility] [address] [id number] [address] [place] [address], [place] [address] Dec, [facility] [address] [id number] [address] [place] [address], [place] [address] Dec, [facility] [address] [id number] [address] [place] [address], [place] [address] 08 Dec, 2012 [facility] [address] [id number] [address] [place] [address], [place] [address] Nov, [facility] [address] [id number] [address] [place] [address], [place] [address] Nov, [facility] [address] [id number] [address] [place] [address], [place] [address] Oct, [facility] [address] [id number] [address] [place] [address], [place] [address] Oct, [facility] [address] [id number] [address] [place] [address], [place] [address] Oct, [facility] [address] [id number] [address] [place] [address], [place] [address] Oct, [facility] [address] [id number] [address] [place] [address], [place] [address] Aug, [facility] [address] [id number] [address] [place] [address], [place] [address] Aug, [facility] [address] [id number] [address] [place] [address], [place] [address] Jun, [facility] [address] [id number] [address] [place] [address], [place] [address] May, [facility] [address] [id number] [address] [place] [address], [place] [address] May, [facility] [address] [id number] [address] [place] [address], [place] [address] Apr, [facility] [address] [id number] [address] [place] [address], [place] [address] Apr, [facility] [address] [id number] [address] [place] [address], [place] [address] Apr, [facility] [address] [id number] [address] [place] [address], [place] [address] Mar, [facility] [address] [id number] [address] [place] [address], [place] [address] Mar, [facility] [address] [id number] [address] [place] [address], [place] [address] Mar, [facility] [address] [id number] [address] [place] [address], [place] [address] Mar, [facility] [address] [id number] [address] [place] [address], [place] [address] Mar, [facility] [address] [id number] [address] [place] [address], [place] [address] February, [facility] [address] [id number] [address] [place] [address], [place] [address] February, [facility] [address] [id number] [address] [place] [address], [place] [address] February, [facility] [address] [id number] [address] [place] [address] February, [facility] [address] [id number] [address] [place] [address], [place] [address] February, [facility] [address] [id number] [address] [place] [address], [place] [address] February, [facility] [address] [id number] [address] [place] [address], [place] [address] February, [facility] [address] [id number] [address] [place] [address], [place] [address] 25 Jan, 2012 [facility] [address] [id number] [address] [place] [address], [place] [address] 18 Jan, 2012 [facility] [address] [id number] [address] [place] [address], [place] [address] 17 Jan, 2012 [facility] [address] [id number] [address] [place] [address], [place] [address] Jan, [facility] [address] [id number] [address] [place] [address], [place] [address] Jan, [facility] [address] [id number] [address] [place] [address], [place] [address] 04 Jan, 2012 [facility] [address] [id number] [address] [place] [address], [place] [address] 30 Dec, 2011 [facility] [address] [id number] [address] [place] [address], [place] [address] 24 Dec, 2011 [facility] [address] [id number] [address] [place] [address], [place] [address] 20 Dec, 2011 [facility] [address] [id number] [address] [place] [address], [place] [address] 13 Dec, 2011 [facility] [address] [id number] [address] [place] [address], [place] [address] 06 Dec, 2011 [facility] [address] [id number] [address] [place] [address], [place] [address] 28 Nov, 2011 [facility] [address] [id number] [address] [place] [address], [place] [address] Nov, [facility] [address] [id number] [address] [place] [address], [place] [address] Nov, [facility] [address] [id number] [address] [place] [address], [place] [address] 14 Nov, 2011 [facility] [address] [id number] [address] [place] [address], [place] [address] Nov, [facility] [address] [id number] [address] [place] [address], [place] [address] Nov, [facility] [address] [id number] [address] [place] [address], [place] [address] Oct, [facility] [address] [id number] [address] [place] [address], [place] [address] Oct, [facility] [address] [id number] [address] [place] [address], [place] [address] Oct, [facility] [address] [id number] [address] [place] [address], [place] [address] Oct, [facility] [address] [id number] [address] [place] [address], [place] [address] Oct, [facility] [address] [id number] [address] [place] [address], [place] [address] Sep, [facility] [address] [id number] [address] [place] [address], [place] [address] Sep, [facility] [address] [id number] [address] [place] [address], [place] [address] Sep, [facility] [address] [id number] [address] [place] [address], [place] [address] Sep, [facility] [address] [id number] [address] [place] [address], [place] [address] Sep, [facility] [address] [id number] [address] [place] [address] Sep, [facility] [address] [id number] [address] [place] [address], [place] [address] Sep, [facility] [address] [id number] [address] [place] [address] Sep, [facility] [address] [id number] [address] [place] [address], [place] [address] Sep, [facility] [address] [id number] [address] [place] [address] Aug, [facility] [address] [id number] [address] [place] [address], [place] [address] Aug, [facility] [address] [id number] [address] [place] [address], [place] [address] Aug, [facility] [address] [id number] [address] [place] [address], [place] [address] Aug, [facility] [address] [id number] [address] [place] [address], [place] [address] Aug, [facility] [address] [id number] [address] [place] [address] Aug, [facility] [address] [id number] [address] [place] [address], [place] [address] Aug, [facility] [address] [id number] [address] [place] [address] Aug, [facility] [address] [id number] [address] [place] [address] Aug, [facility] [address] [id number] [address] [place] [address], [place] [address] Aug, [facility] [address] [id number] [address] [place] [address], [place] [address] Aug, [facility] [address] [id number] [address] [place] [address], [place] [address] Aug, [facility] [address] [id number] [address] [place] [address], [place] [address] Jul, [facility] [address] [id number] [address] [place] [address], [place] [address] Jul, [facility] [address] [id number] [address] [place] [address], [place] [address] Jul, [facility] [address] [id number] [address] [place] [address], [place] [address] Jul, [facility] [address] [id number] [address] [place] [address], [place] [address] Jul, [facility] [address] [id number] [address] [place] [address], [place] [address] Jul, [facility] [address] [id number] [address] [place] [address], [place] [address] Jul, [facility] [address] [id number] [address] [place] [address], [place] [address] Jul, [facility] [address] [id number] [address] [place] [address], [place] [address] Jul, [facility] [address] [id number] [address] [place] [address], [place] [address] Jul, [facility] [address] [id number] [address] [place] [address], [place] [address] Nov, [facility] [address] [id number] [address] [place] [address], [place] [address] Aug, [facility] [address] [id number] [address] [place] [address], [place] [address] Aug, [facility] [address] [id number] [address] [place] [address], [place] [address] Aug, [facility] [address] [id number] [address] [place] [address], [place] [address] Aug, [facility] [address] [id number] [address] [place] [address], [place] [address] Jul, IMMUNIZATIONS No Known Immunizations SOCIAL HISTORY Never Assessed REASON FOR VISIT [place] [place] VITAL SIGNS MEDICATIONS Unknown [...] Suicide attempt by hanging 2015 Hospitalization History [facility] 01/30/2018-02/10/20 08 Hospitalization History [facility] 05/04/18-
--- OUTSIDE RECORDS SUMMARY | 2020-04-04 02:09 | XMS REPORT ---
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 Active 79475664 Problem Generalized anxiety disorder 300.02 A ctive 20718004 Problem Obsessive-compulsive disorders 300.3 Active 096864883 Problem Catatonic schizophrenia, 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 511131998 Problem Disorganized schizophrenia, 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 48185261 Problem Paranoid schizophrenia F20.0 Active 63433209 Problem Borderline personality disorder F60.3 Active 07287211 Problem Paranoid schizophrenia, unspecified condition 295.30 Active 80007463 Problem Schizoaffective disorder, depressive type F25.1 Active 15053472 Problem Bipolar disorder, unspecified 296.80 Active 73666788 Problem Schizoaffective disorder, unspecified F25.9 Active 43395248 Problem Attention deficit hyperactivity disorder (ADHD), inattentive type, 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 74180866 Problem Posttraumatic stress disorder F43.10 Active 16773685 Problem High risk medication use Z79.899 Activ e [id number] ALLERGIES No Information ENCOUNTERS Encounter Location Date Diagnosis [facility] [address] [facility] [id number] [address] [place] [phone] Mar, [facility] [address] [facility] [id number] [address] [place] [address] Jan, Paranoid schizophrenia F20.0 ; Posttraumatic stress disorder F43.10 ; Attention deficit hyperactivity disorder (ADHD), inattentive type, 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 and Borderline personality disorder F60.3 [facility] [address] [facility] [id number] [address] [place] [phone] Dec, Paranoid schizophrenia F20.0 ; Posttraumatic stress disorder F43.10 ; Attention deficit hyperactivity disorder (ADHD), inattentive type, 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 and Borderline personality disorder F60.3 [facility] [address] [facility] [id number] [address] [place] [address] Dec, Paranoid schizophrenia F20.0 ; Posttraumatic stress disorder F43.10 ; Attention deficit hyperactivity disorder (ADHD), inattentive type, 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 and Borderline personality disorder F60.3 [facility] [address] [place] [id number] [place] [address] Oct, Paranoid schizophrenia F20.0 ; Posttraumatic stress disorder F43.10 ; Attention deficit hyperactivity disorder (ADHD), inattentive type, 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 and Borderline personality disorder F60.3 [facility] [address] [place] [id number] [address] [place] [address] Oct, Paranoid schizophrenia F20.0 ; Posttraumatic stress disorder F43.10 ; Attention deficit hyperactivity disorder (ADHD), inattentive type, 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 and Borderline personality disorder F60.3 [facility] [id number] [place] [address] Aug, [facility] [address] [place] [id number] [place] [address] Aug, Paranoid schizophrenia F20.0 ; Posttraumatic stress disorder F43.10 ; Attention deficit hyperactivity disorder (ADHD), inattentive type, 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 and Borderline personality disorder F60.3 [facility] [address] [facility] [id number] [address] [place] [address] Jul, Dry skin dermatitis L85.3 [facility] [address] [facility] [id number] [address] [place] [address] Jul, [facility] [address] [place] [id number] [address] [place] [address] Jul, Paranoid schizophrenia F20.0 [facility] [address] [place] [id number] [address] [place] [address] May, Paranoid schizophrenia F20.0 ; Posttraumatic stress disorder F43.10 ; Attention deficit hyperactivity disorder (ADHD), inattentive type, 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 and Borderline personality disorder F60.3 [facility] [address] [id number] [address] [place] [address] May, [facility] [address] [id number] [address] [place] [address] May, Paranoid schizophrenia F20.0 [facility] [address] [id number] [address] [place] [address] May, Paranoid schizophrenia F20.0 ; Posttraumatic stress disorder F43.10 ; Attention deficit hyperactivity disorder (ADHD), inattentive type, 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 and Borderline personality disorder F60.3 [facility] [address] [id number] [address] [place] [address] Apr, [facility] [address] [id number] [address] [place] [phone] Apr, Paranoid schizophrenia F20.0 ; Posttraumatic stress disorder F43.10 ; Attention deficit hyperactivity disorder (ADHD), inattentive type, 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 and Borderline personality disorder F60.3 [facility] [address] [id number] [address] [place] [address] Apr, [facility] [address] [id number] [address] [place] [id number] Apr, Schizoaffective disorder, de pressive type F25.1 and Borderline personality disorder F60.3 [facility] [address] [id number] [address] [place] [address] Apr, Paranoid schizophrenia F20.0 ; Posttraumatic stress disorder F43.10 ; Attention deficit hyperactivity disorder (ADHD), inattentive type, 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 and Borderline personality disorder F60.3 [facility] [address] [id number] [address] [place] [address] Apr, [facility] [address] [id number] [address] [place] [address] Apr, Paranoid schizophrenia F20.0 ; Posttraumatic stress disorder F43.10 ; Attention deficit hyperactivity disorder (ADHD), inattentive type, 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 and Borderline personality disorder F60.3 [facility] [address] [id number] [address] [place] [address] Apr, [facility] [address] [id number] [address] [place] [address] Mar, Paranoid schizophrenia F20.0 [facility] [address] [id number] [address] [place] [address] Mar, [facility] [address] [facility] [id number] [address] [place] [address] Mar, Paranoid schizophrenia F20.0 ; Posttraumatic stress disorder F43.10 ; Attention deficit hyperactivity disorder (ADHD), inattentive type, 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 and Borderline personality disorder F60.3 [facility] [address] [facility] [id number] [address] [place] [id number] February, Paranoid schizophrenia F20.0 [facility] [address] [id number] [address] [place] [address] February, Paranoid schizophrenia F20.0 ; Posttraumatic stress disorder F43.10 ; Attention deficit hyperactivity disorder (ADHD), inattentive type, 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 and Borderline personality disorder F60.3 [facility] [address] [id number] [address] [place] [address] February, Paranoid schizophrenia F20.0 ; Posttraumatic stress disorder F43.10 ; Attention deficit hyperactivity disorder (ADHD), inattentive type, 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 and Borderline personality disorder F60.3 [facility] [address] [id number] [address] [place] [address] February, [facility] [address] [id number] [address] [place] [address] February, Paranoid schizophrenia F20.0 [facility] [address] [facility] [id number] [address] [place] [address] February, Paranoid schizophrenia F20.0 [facility] [address] [facility] [id number] [address] [place] [address] February, Paranoid schizophrenia F20.0 ; Posttraumatic stress disorder F43.10 ; Attention deficit hyperactivity disorder (ADHD), inattentive type, 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 and Borderline personality disorder F60.3 [facility] [address] [facility] [id number] [address] [place] [address] Jan, Paranoid schizophrenia F20.0 ; Posttraumatic stress disorder F43.10 ; Attention deficit hyperactivity disorder (ADHD), inattentive type, 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 and Borderline personality disorder F60.3 [facility] [address] [facility] [id number] [address] [place] [address] Jan, Paranoid schizophrenia F20.0 [facility] [address] [facility] [id number] [address] [place] [address] Jan, Paranoid schizophrenia F20.0 [facility] [address] [id number] [address] [place] [address] Jan, Paranoid schizophrenia F20.0 ; Posttraumatic stress disorder F43.10 ; Attention deficit hyperactivity disorder (ADHD), inattentive type, 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 and Borderline personality disorder F60.3 [facility] [address] [facility] [id number] [address] [place] [phone] Dec, [facility] [address] [facility] [id number] [address] [place] [address] Nov, Paranoid schizophrenia F20.0 ; Posttraumatic stress disorder F43.10 ; Attention deficit hyperactivity disorder (ADHD), inattentive type, 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 and Borderline personality disorder F60.3 [facility] [address] [facility] [id number] [address] [place] [phone] Nov, [facility] [address] [facility] [id number] [address] [place] [address] Oct, Paranoid schizophrenia F20.0 [facility] [address] [id number] [address] [place] [address] Oct, Paranoid schizophrenia F20.0 ; Posttraumatic stress disorder F43.10 ; Attention deficit hyperactivity disorder (ADHD), inattentive type, 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 ; Borderline personality disorder F60.3 and Other oysterman (current) drug therapy Z79.899 [facility] [address] [id number] [address] [place] [address] Oct, [facility] [address] [id number] [address] [place] [address] Oct, [facility] [address] [id number] [address] [place] [address], [place] [address] Sep, [facility] [address] [id number] [address] [place] [address] Sep, Paranoid schizophrenia F20.0 ; Posttraumatic stress disorder F43.10 ; Attention deficit hyperactivity disorder (ADHD), inattentive type, 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 and Borderline personality disorder F60.3 [facility] [address] [id number] [address] [place] [address] Sep, Paranoid schizophrenia F20.0 [facility] [address] [id number] [address] [place] [address] Aug, Paranoid schizophrenia F20.0 ; Posttraumatic stress disorder F43.10 ; Attention deficit hyperactivity disorder (ADHD), inattentive type, 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 and Borderline personality disorder F60.3 [facility] [address] [id number] [address] [place] [address] Aug, Paranoid schizophrenia F20.0 ; Posttraumatic stress disorder F43.10 ; Attention deficit hyperactivity disorder (ADHD), inattentive type, 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 and Borderline personality disorder F60.3 [facility] [address] [id number] [address] [place] [address] 09 Aug, 2017 [facility] [address] [id number] [address] [place] [address] Jul, Paranoid schizophrenia F20.0 ; Posttraumatic stress disorder F43.10 ; Attention deficit hyperactivity disorder (ADHD), inattentive type, 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 and Borderline personality disorder F60.3 [facility] [address] [facility] [id number] [address] [place] [phone] Jul, Paranoid schizophrenia F20.0 [facility] [address] [id number] [address] [place] [address] Jul, Paranoid schizophrenia F20.0 ; Posttraumatic stress disorder F43.10 ; Attention deficit hyperactivity disorder (ADHD), inattentive type, 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 and Borderline personality disorder F60.3 [facility] [address] [id number] [address] [place] [id number] Jun, Paranoid schizophrenia F20.0 ; Posttraumatic stress disorder F43.10 ; Attention deficit hyperactivity disorder (ADHD), inattentive type, 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 and Borderline personality disorder F60.3 [facility] [address] [facility] [id number] [address] [place] [address] May, Other oysterman (current) dr gabriel parra Z79.899 [facility] [address] [facility] [id number] [address] [place] [phone] May, [facility] [address] [facility] [id number] [address] [place] [address] May, [facility] [address] [facility] [id number] [address] [place] [address] May, Attention deficit hyperactiv ity disorder (ADHD), inattentive type, mild F90.0 [facility] [address] [id number] [address] [place] [address] May, [facility] [address] [facility] [id number] [address] [place] [address] May, Attention deficit hyperactiv ity disorder (ADHD), inattentive type, mild F90.0 [facility] [address] [facility] [id number] [address] [place] [address] May, Paranoid schizophrenia F20.0 ; Posttraumatic stress disorder F43.10 ; Attention deficit hyperactivity disorder (ADHD), inattentive type, 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 and Other mcc (current) drug therapy Z79.899 [facility] [address] [id number] [address] [place] [address] Apr, Paranoid schizophrenia F20.0 [facility] [address] [id number] [address] [place] [address] Apr, Paranoid schizophrenia F20.0 ; Posttraumatic stress disorder F43.10 and Attention deficit hyperactivity disorder (ADHD), inattentive type, 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 [facility] [address] [id number] [address] [place] [address] February, [facility] [address] [id number] [address] [place] [address] February, Paranoid schizophrenia F20.0 ; Posttraumatic stress disorder F43.10 and Attention deficit hyperactivity disorder (ADHD), inattentive type, 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 [facility] [address] [id number] [address] [place] [address] February, Paranoid schizophrenia F20.0 ; Posttraumatic stress disorder F43.10 and Attention deficit hyperactivity disorder (ADHD), inattentive type, 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 [facility] [address] [id number] [address] [place] [phone] Jan, Paranoid schizophrenia F20.0 ; Posttraumatic stress disorder F43.10 and Attention deficit hyperactivity disorder (ADHD), inattentive type, 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 [facility] [address] [id number] [address] [place] [id number] Dec, Dental examination Z01.20 [facility] [address] [id number] [address] [place] [address] [id number] Nov, Dental examination Z01.20 [facility] [address] [id number] [address] [place] [address] [id number] Feb, 2017 Dental examination Z01.20 [facility] [address] [id number] [address] [place] [id number] Nov, 2016 Dental caries K02.9 [facility] [address] [facility] [id number] [address] [place] [address] 13 Nov, 2016 High risk medication use Z79 .899 [facility] [address] [facility] [id number] [address] [place] [address] 01 Nov, 2016 Paranoid schizophrenia F20.0 ; Posttraumatic stress disorder F43.10 ; Attention deficit hyperactivity disorder (ADHD), inattentive type, 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 and Borderline personality disorder in adult F60.3 [facility] [address] [id number] [address] [place] [id number] Oct, Dental caries K02.9 [facility] [address] [facility] [id number] [address] [place] [phone] Sep, Paranoid schizophrenia F20.0 ; Posttraumatic stress disorder F43.10 and Attention deficit hyperactivity disorder (ADHD), inattentive type, 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 [facility] [address] [facility] [id number] [address] [place] [address] Aug, Paranoid schizophrenia F20.0 ; Posttraumatic stress disorder F43.10 and Attention deficit hyperactivity disorder (ADHD), inattentive type, 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 [facility] [address] [facility] [id number] [address] [place] [address] Aug, Strep throat J02.0 and Cough R05 [facility] [address] [facility] [id number] [address] [place] [address] Aug, [facility] [address] [facility] [id number] [address] [place] [address] Jul, Paranoid schizophrenia F20.0 ; Posttraumatic stress disorder F43.10 and Attention deficit hyperactivity disorder (ADHD), inattentive type, 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 [facility] [address] [facility] [id number] [address] [place] [address] Jul, [facility] [address] [id number] [address] [place] [address] Jun, Paranoid schizophrenia F20.0 ; Posttraumatic stress disorder F43.10 and Attention deficit hyperactivity disorder (ADHD), inattentive type, 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 [facility] [address] [id number] [address] [place] [address] [id number] Jun, Dental examination Z01.20 [facility] [address] [id number] [address] [place] [phone] Jun, [facility] [address] [id number] [address] [place] [address] May, Paranoid schizophrenia F20.0 [facility] [address] [id number] [address] [place] [id number] May, Paranoid schizophrenia F20.0 ; Posttraumatic stress disorder F43.10 and Attention deficit hyperactivity disorder (ADHD), inattentive type, 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 [facility] [address] [id number] [address] [place] [address] May, [facility] [address] [id number] [address] [place] [phone] May, Paranoid schizophrenia F20.0 [facility] [address] [id number] [address] [place] [phone] May, [facility] [address] [id number] [address] [place] [phone] May, Paranoid schizophrenia F20.0 [facility] [address] [id number] [address] [place] [address] May, Schizoaffective disorder, un specified F25.9 [facility] [address] [id number] [address] [place] [id number] May, Schizoaffective disorder, un specified F25.9 [facility] [address] [id number] [address] [place] [address] May, [facility] [address] [id number] [address] [address] May, Paranoid schizophrenia F20.0 [facility] [address] [id number] [address] [place] [address], [place] [address] May, Paranoid schizophrenia F20.0 ; Posttraumatic stress disorder F43.10 and Attention deficit hyperactivity disorder (ADHD), inattentive type, 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 [facility] [address] [id number] [address] [place] [address] Mar, [facility] [address] [id number] [address] [place] [address], [place] [address] Mar, Paranoid schizophrenia F20.0 ; Posttraumatic stress disorder F43.10 and Attention deficit hyperactivity disorder (ADHD), inattentive type, 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 [facility] [address] [id number] [address] [place] [address], [place] [address] Mar, Paranoid schizophrenia F20.0 [facility] [address] [id number] [address] [place] [address], [place] [address] Mar, Paranoid schizophrenia F20.0 ; Attention deficit hyperactivity disorder (ADHD), inattentive type, 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 and Posttraumatic stress disorder F43.10 [facility] [address] [id number] [address] [place] [address], [place] [address] Mar, [facility] [address] [id number] [address] [place] [phone] Mar, Paranoid schizophrenia F20.0 ; Posttraumatic stress disorder F43.10 and Attention deficit hyperactivity disorder (ADHD), inattentive type, 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 [facility] [address] [id number] [address] [place] [address], [place] [address] February, [facility] [address] [id number] [address] [place] [address], [place] [address] February, [facility] [address] [id number] [address] [place] [phone] February, [facility] [address] [id number] [address] [place] [phone] February, [facility] [address] [id number] [address] [place] [address] Jan, Paranoid schizophrenia F20.0 [facility] [address] [id number] [address] [place] [address] [id number] Jan, Dental examination Z01.20 [facility] [address] [id number] [address] [place] [address] [id number] Jan, Dental caries K02.9 [facility] [address] [id number] [address] [place] [address] [id number] Jan, Dental examination Z01.20 [facility] [address] [id number] [address] [place] [address] [id number] Dec, Encounter for dental examina tion Z01.20 [facility] [address] [id number] [address] [place] [phone] Dec, Paranoid schizophrenia F20.0 [facility] [address] [id number] [address] [place] [address] [id number] Dec, Dental examination Z01.20 [facility] [address] [id number] [address] [place] [phone] Dec, [facility] [address] [id number] [address] [place] [phone] Dec, Paranoid schizophrenia F20.0 ; Posttraumatic stress disorder F43.10 and Attention deficit hyperactivity disorder (ADHD), inattentive type, 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 [facility] [address] [id number] [address] [place] [address] Nov, Schizoaffective disorder, un specified F25.9 [facility] [address] [id number] [address] [place] [phone] Oct, Paranoid schizophrenia F20.0 [facility] [address] [id number] [address] [place] [address] Oct, [facility] [address] [facility] [id number] [address] [place] [phone] Sep, Paranoid schizophrenia F20.0 ; Posttraumatic stress disorder F43.10 and Attention deficit hyperactivity disorder (ADHD), inattentive type, 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 [facility] [address] [id number] [address] [place] [phone] Sep, [facility] [address] [id number] [address] [place] [phone] Sep, Paranoid schizophrenia F20.0 ; Posttraumatic stress disorder F43.10 and Attention deficit hyperactivity disorder (ADHD), inattentive type, 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 [facility] [address] [id number] [address] [place] [address] Aug, Paranoid schizophrenia F20.0 [facility] [address] [facility] [id number] [address] [place] [address] Aug, [facility] [address] [facility] [id number] [address] [place] [address] Aug, Posttraumatic stress disorde r F43.10 ; Paranoid schizophrenia F20.0 and Attention deficit hyperactivity disorder (ADHD), inattentive type, 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 [facility] [address] [facility] [id number] [address] [place] [address] Jul, Bipolar disorder, unspecifie d F31.9 [facility] [address] [facility] [id number] [address] [place] [address] Jul, [facility] [address] [facility] [id number] [address] [place] [address] Jun, [facility] [address] [facility] [id number] [address] [place] [address] Jun, Schizoaffective disorder, ch ronic 295.72 ; Posttraumatic stress disorder 309.81 and Attention deficit disorder of childhood without mention of hyperactivity 314.00 [facility] [address] [facility] [id number] [address] [place] [address] May, [facility] [address] [id number] [address] [place] [address] May, [facility] [address] [id number] [address] [place] [address] May, Schizoaffective disorder, ch ronic 295.72 ; Posttraumatic stress disorder 309.81 ; Attention deficit disorder of childhood without mention of hyperactivity 314.00 and Bipolar disorder, unspecified 296.80 [facility] [address] [id number] [address] [place] [address] Apr, Schizoaffective disorder, ch ronic 295.72 [facility] [address] [id number] [address] [place] [address] Apr, [facility] [address] [id number] [address] [place] [address] Apr, Schizoaffective disorder, ch ronic 295.72 ; Posttraumatic stress disorder 309.81 and Attention deficit disorder of childhood without mention of hyperactivity 314.00 [facility] [address] [id number] [address] [place] [address] Mar, Disorganized schizophrenia, 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 [facility] [address] [id number] [address] [place] [address] Mar, [facility] [address] [id number] [address] [place] [address] Mar, [facility] [address] [facility] [id number] [address] [place] [address] Mar, [facility] [address] [id number] [address] [place] [address] Mar, [facility] [address] [facility] [id number] [address] [place] [address] February, Schizoaffective disorder, ch ronic 295.72 [facility] [address] [facility] [id number] [address] [place] [address] February, [facility] [address] [id number] [address] [place] [address] February, Attention 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 ; Posttraumatic stress disorder 309.81 and Schizoaffective disorder, chronic 295.72 [facility] [address] [id number] [address] [place] [address] Jan, [facility] [address] [id number] [address] [place] [address] Jan, [facility] [address] [id number] [address] [place] [address] Jan, [facility] [address] [id number] [address] [place] [address] Dec, [facility] [address] [id number] [address] [place] [address] Dec, [facility] [address] [id number] [address] [place] [address] Dec, [facility] [address] [id number] [address] [place] [address] Dec, [facility] [address] [id number] [address] [place] [address] Dec, [facility] [address] [id number] [address] [place] [address] Dec, [facility] [address] [id number] [address] [place] [address] Dec, [facility] [address] [id number] [address] [place] [address] Dec, [facility] [address] [id number] [address] [place] [address] Nov, [facility] [address] [id number] [address] [place] [address] Nov, [facility] [address] [id number] [address] [place] [address] [place] [address] Nov, 2014 [facility] [address] [id number] [address] [place] [address], [place] [address] Nov, 2014 [facility] [address] [id number] [address] [place] [address], [place] [address] Nov, 2014 [facility] [address] [id number] [address] [place] [address], [place] [address] Nov, 2014 [facility] [address] [id number] [address] [place] [address], [place] [address] Nov, 2014 [facility] [address] [id number] [address] [place] [address], [place] [address] Nov, 2014 [facility] [address] [id number] [address] [place] [address], [place] [address] Nov, [facility] [address] [id number] [address] [place] [address], [place] [address] Nov, [facility] [address] [id number] [address] [place] [address], [place] [address] Oct, [facility] [address] [id number] [address] [place] [address], [place] [address] Oct, [facility] [address] [id number] [address] [place] [address] Oct, [facility] [address] [id number] [address] [place] [address], [place] [address] Oct, [facility] [address] [id number] [address] [place] [address] Oct, [facility] [address] [id number] [address] [place] [address], [place] [address] Oct, [facility] [address] [id number] [address] [place] [address], [place] [address] Oct, [facility] [address] [id number] [address] [place] [address], [place] [address] Sep, [facility] [address] [id number] [address] [place] [address], [place] [address] 17 Sep, 2014 [facility] [address] [id number] [address] [place] [address], [place] [address] 15 Sep, 2014 [facility] [address] [id number] [address] [place] [address], [place] [address] 15 Sep, 2014 [facility] [address] [id number] [address] [place] [address], [place] [address] Aug, [facility] [address] [id number] [address] [place] [address], [place] [address] Aug, [facility] [address] [id number] [address] [place] [address], [place] [address] Aug, [facility] [address] [id number] [address] [place] [address], [place] [address] Aug, [facility] [address] [id number] [address] [place] [address], [place] [address] Aug, [facility] [address] [id number] [address] [place] [address], [place] [address] Aug, [facility] [address] [id number] [address] [place] [address], [place] [address] Jul, [facility] [address] [id number] [address] [place] [address], [place] [address] 29 Jul, 2014 [facility] [address] [id number] [address] [place] [address], [place] [address] 24 Jul, 2014 [facility] [address] [id number] [address] [place] [address], [place] [address] 24 Jul, 2014 [facility] [address] [id number] [address] [place] [address], [place] [address] 15 Jul, 2014 [facility] [address] [id number] [address] [place] [address], [place] [address] 15 Jul, 2014 [facility] [address] [id number] [address] [place] [address] [place] [address] 27 Sep, 2013 [facility] [address] [id number] [facility] [place] [address] 27 Sep, 2013 [facility] [address] [id number] [facility] [place] [address] 26 Sep, 2013 [facility] [address] [id number] [address] [place] [address], [place] [address] 26 Sep, 2013 [facility] [address] [id number] [address] [place] [address], [place] [address] 26 Jun, 2013 [facility] [address] [id number] [address] [place] [address], [place] [address] 26 Jun, 2013 [facility] [address] [id number] [address] [place] [address], [place] [address] 16 Jun, 2013 [facility] [address] [id number] [address] [place] [address], [place] [address] 16 Jun, 2013 [facility] [address] [id number] [address] [place] [address], [place] [address] 16 Jun, 2013 [facility] [address] [id number] [address] [place] [address], [place] [address] 16 Jun, 2013 [facility] [address] [id number] [address] [place] [address], [place] [address] 04 Jun, 2013 [facility] [address] [id number] [address] [place] [address], [place] [address] May, 2013 [facility] [address] [id number] [address] [place] [address], [place] [address] May, [facility] [address] [id number] [address] [place] [address], [place] [address] May, 2013 [facility] [address] [id number] [address] [place] [address], [place] [address] May, 2013 [facility] [address] [id number] [address] [place] [address], [place] [address] May, 2013 [facility] [address] [id number] [facility] [place] [address] May, [facility] [address] [id number] [facility] [place] [address] May, [facility] [address] [id number] [address] [place] [address], [place] [address] May, [facility] [address] [id number] [address] [place] [address], [place] [address] May, [facility] [address] [id number] [address] [place] [address], [place] [address] May, [facility] [address] [id number] [address] [place] [address], [place] [address] Apr, [facility] [address] [id number] [address] [place] [address], [place] [address] Apr, [facility] [address] [id number] [address] [place] [address], [place] [address] Apr, [facility] [address] [id number] [address] [place] [address], [place] [address] Apr, [facility] [address] [id number] [address] [place] [address], [place] [address] Apr, [facility] [address] [id number] [address] [place] [address], [place] [address] Apr, [facility] [address] [id number] [address] [place] [address], [place] [address] Apr, [facility] [address] [id number] [address] [place] [address], [place] [address] Apr, [facility] [address] [id number] [address] [place] [address], [place] [address] Apr, [facility] [address] [id number] [address] [place] [address], [place] [address] Apr, [facility] [address] [id number] [address] [place] [address], [place] [address] Mar, [facility] [address] [id number] [facility] [place] [address] Mar, [facility] [address] [id number] [facility] [place] [address] 25 Mar, 2014 [facility] [address] [id number] [facility] [place] [address] 24 Mar, 2014 [facility] [address] [id number] [address] [place] [address], [place] [address] 20 Mar, 2014 [facility] [address] [id number] [address] [place] [address], [place] [address] 18 Mar, 2014 [facility] [address] [id number] [address] [place] [address], [place] [address] 18 Mar, 2014 [facility] [address] [id number] [address] [place] [address], [place] [address] 16 Mar, 2014 [facility] [address] [id number] [address] [place] [address], [place] [address] 16 Mar, 2014 [facility] [address] [id number] [address] [place] [address], [place] [address] 13 Mar, 2014 [facility] [address] [id number] [address] [place] [address], [place] [address] 13 Mar, 2014 [facility] [address] [id number] [address] [place] [address], [place] [address] 11 Mar, 2014 [facility] [address] [id number] [address] [place] [address], [place] [address] 11 Mar, 2014 [facility] [address] [id number] [address] [place] [address], [place] [address] 10 Mar, 2014 [facility] [address] [id number] [address] [place] [address], [place] [address] 09 Mar, 2014 [facility] [address] [id number] [address] [place] [address], [place] [address] 09 Mar, 2014 [facility] [address] [id number] [facility] [place] [place] [address] Mar, [facility] [address] [id number] [address] [place] [address], [place] [address] Mar, [facility] [address] [id number] [address] [place] [address], [place] [address] Mar, [facility] [address] [id number] [address] [place] [address], [place] [address] Mar, [facility] [address] [id number] [address] [place] [address], [place] [address] February, [facility] [address] [id number] [address] [place] [address], [place] [address] February, [facility] [address] [id number] [address] [place] [address], [place] [address] February, [facility] [address] [id number] [address] [place] [address], [place] [address] February, [facility] [address] [id number] [address] [place] [address], [place] [address] February, [facility] [address] [id number] [address] [place] [address], [place] [address] February, [facility] [address] [id number] [address] [place] [address], [place] [address] February, [facility] [address] [id number] [address] [place] [address], [place] [address] February, [facility] [address] [id number] [address] [place] [address], [place] [address] February, [facility] [address] [id number] [address] [place] [address], [place] [address] February, [facility] [address] [id number] [address] [place] [address], [place] [address] February, [facility] [address] [id number] [address] [place] [address], [place] [address] February, [facility] [address] [id number] [address] [place] [address], [place] [address] February, [facility] [address] [id number] [address] [place] [address], [place] [address] February, [facility] [address] [id number] [address] [place] [address], [place] [address] February, [facility] [address] [id number] [address] [place] [address], [place] [address] February, [facility] [address] [id number] [address] [place] [address], [place] [address] February, [facility] [address] [id number] [address] [place] [address], [place] [address] February, [facility] [address] [id number] [address] [place] [address], [place] [address] February, [facility] [address] [id number] [address] [place] [address], [place] [address] February, [facility] [address] [id number] [address] [place] [address], [place] [address] February, [facility] [address] [id number] [address] [place] [address], [place] [address] Jan, [facility] [address] [id number] [address] [place] [address], [place] [address] Jan, [facility] [address] [id number] [address] [place] [address], [place] [address] Jan, [facility] [address] [id number] [address] [place] [address], [place] [address] Jan, [facility] [address] [id number] [address] [place] [address], [place] [address] Jan, [facility] [address] [id number] [address] [place] [address], [place] [address] Jan, [facility] [address] [id number] [address] [place] [address], [place] [address] 10 Jan, 2014 [facility] [address] [id number] [facility] [place] [place] [address] 10 Jan, 2014 [facility] [address] [id number] [address] [place] [address], [place] [address] 21 Dec, 2013 [facility] [address] [id number] [address] [place] [address], [place] [address] 20 Dec, 2013 [facility] [address] [id number] [address] [place] [address], [place] [address] 20 Dec, 2013 [facility] [address] [id number] [address] [place] [address], [place] [address] 19 Dec, 2013 [facility] [address] [id number] [address] [place] [address], [place] [address] 19 Dec, 2013 [facility] [address] [id number] [address] [place] [address], [place] [address] 15 Dec, 2013 [facility] [address] [id number] [address] [place] [address], [place] [address] 15 Dec, 2013 [facility] [address] [id number] [address] [place] [address], [place] [address] 11 Dec, 2013 [facility] [address] [id number] [address] [place] [address], [place] [address] 10 Dec, 2013 [facility] [address] [id number] [address] [place] [address], [place] [address] 10 Dec, 2013 [facility] [address] [id number] [address] [place] [address], [place] [address] 18 Nov, 2013 [facility] [address] [id number] [address] [place] [address], [place] [address] 17 Nov, 2013 [facility] [address] [id number] [address] [place] [address], [place] [address] 17 Nov, 2013 [facility] [address] [id number] [address] [place] [address], [place] [address] 05 Nov, 2013 [facility] [address] [id number] [address] [place] [address], [place] [address] Nov, [facility] [address] [id number] [address] [place] [address], [place] [address] Oct, [facility] [address] [id number] [address] [place] [address], [place] [address] Oct, [facility] [address] [id number] [address] [place] [address], [place] [address] Oct, [facility] [address] [id number] [address] [place] [address], [place] [address] Sep, [facility] [address] [id number] [address] [place] [address], [place] [address] Sep, [facility] [address] [id number] [address] [place] [address], [place] [address] Sep, [facility] [address] [id number] [address] [place] [address], [place] [address] Sep, [facility] [address] [id number] [address] [place] [address], [place] [address] Aug, [facility] [address] [id number] [address] [place] [address], [place] [address] Aug, [facility] [address] [id number] [address] [place] [address], [place] [address] Jul, [facility] [address] [id number] [address] [place] [address], [place] [address] Jul, [facility] [address] [id number] [address] [place] [address], [place] [address] Jul, [facility] [address] [id number] [address] [place] [address], [place] [address] Jul, [facility] [address] [id number] [address] [place] [address], [place] [address] Jul, [facility] [address] [id number] [address] [place] [address], [place] [address] 25 Jun, 2013 [facility] [address] [id number] [address] [place] [address], [place] [address] 25 Jun, 2013 [facility] [address] [id number] [address] [place] [address], [place] [address] 19 Jun, 2013 [facility] [address] [id number] [address] [place] [address], [place] [address] 18 Jun, 2013 [facility] [address] [id number] [address] [place] [address], [place] [address] 16 Jun, 2013 [facility] [address] [id number] [address] [place] [address], [place] [address] 12 Jun, 2013 [facility] [address] [id number] [address] [place] [address], [place] [address] 11 Jun, 2013 [facility] [address] [id number] [address] [place] [address], [place] [address] May, [facility] [address] [id number] [address] [place] [address], [place] [address] May, [facility] [address] [id number] [address] [place] [address], [place] [address] Apr, [facility] [address] [id number] [address] [place] [address], [place] [address] Apr, [facility] [address] [id number] [address] [place] [address], [place] [address] Apr, [facility] [address] [id number] [address] [place] [address], [place] [address] Mar, [facility] [address] [id number] [address] [place] [address], [place] [address] Mar, [facility] [address] [id number] [address] [place] [address], [place] [address] February, [facility] [address] [id number] [place] [address], [place] [address] February, [facility] [address] [id number] [address] [place] [address], [place] [address] February, [facility] [address] [id number] [address] [place] [address], [place] [address] February, [facility] [address] [id number] [address] [place] [address], [place] [address] Jan, [facility] [address] [id number] [address] [place] [address], [place] [address] Jan, [facility] [address] [id number] [address] [place] [address], [place] [address] 16 Jan, 2013 [facility] [address] [id number] [address] [place] [address], [place] [address] 29 Dec, 2012 [facility] [address] [id number] [address] [place] [address], [place] [address] Dec, [facility] [address] [id number] [address] [place] [address], [place] [address] Dec, [facility] [address] [id number] [address] [place] [address], [place] [address] 08 Dec, 2012 [facility] [address] [id number] [address] [place] [address], [place] [address] Nov, [facility] [address] [id number] [address] [place] [address], [place] [address] Nov, [facility] [address] [id number] [address] [place] [address], [place] [address] Oct, [facility] [address] [id number] [address] [place] [address], [place] [address] Oct, [facility] [address] [id number] [address] [place] [address], [place] [address] Oct, [facility] [address] [id number] [address] [place] [address], [place] [address] Oct, [facility] [address] [id number] [address] [place] [address], [place] [address] Aug, [facility] [address] [id number] [address] [place] [address], [place] [address] Aug, [facility] [address] [id number] [address] [place] [address], [place] [address] Jun, [facility] [address] [id number] [address] [place] [address], [place] [address] May, [facility] [address] [id number] [address] [place] [address], [place] [address] May, [facility] [address] [id number] [address] [place] [address], [place] [address] Apr, [facility] [address] [id number] [address] [place] [address], [place] [address] Apr, [facility] [address] [id number] [address] [place] [address], [place] [address] Apr, [facility] [address] [id number] [address] [place] [address], [place] [address] Mar, [facility] [address] [id number] [address] [place] [address], [place] [address] Mar, [facility] [address] [id number] [address] [place] [address], [place] [address] Mar, [facility] [address] [id number] [address] [place] [address], [place] [address] Mar, [facility] [address] [id number] [address] [place] [address], [place] [address] Mar, [facility] [address] [id number] [address] [place] [address], [place] [address] February, [facility] [address] [id number] [address] [place] [address], [place] [address] February, [facility] [address] [id number] [address] [place] [address], [place] [address] February, [facility] [address] [id number] [address] [place] [address] February, [facility] [address] [id number] [address] [place] [address], [place] [address] February, [facility] [address] [id number] [address] [place] [address], [place] [address] February, [facility] [address] [id number] [address] [place] [address], [place] [address] February, [facility] [address] [id number] [address] [place] [address], [place] [address] 25 Jan, 2012 [facility] [address] [id number] [address] [place] [address], [place] [address] 18 Jan, 2012 [facility] [address] [id number] [address] [place] [address], [place] [address] 17 Jan, 2012 [facility] [address] [id number] [address] [place] [address], [place] [address] Jan, [facility] [address] [id number] [address] [place] [address], [place] [address] Jan, [facility] [address] [id number] [address] [place] [address], [place] [address] 04 Jan, 2012 [facility] [address] [id number] [address] [place] [address], [place] [address] 30 Dec, 2011 [facility] [address] [id number] [address] [place] [address], [place] [address] 24 Dec, 2011 [facility] [address] [id number] [address] [place] [address], [place] [address] 20 Dec, 2011 [facility] [address] [id number] [address] [place] [address], [place] [address] 13 Dec, 2011 [facility] [address] [id number] [address] [place] [address], [place] [address] 06 Dec, 2011 [facility] [address] [id number] [address] [place] [address], [place] [address] 28 Nov, 2011 [facility] [address] [id number] [address] [place] [address], [place] [address] Nov, [facility] [address] [id number] [address] [place] [address], [place] [address] Nov, [facility] [address] [id number] [address] [place] [address], [place] [address] 14 Nov, 2011 [facility] [address] [id number] [address] [place] [address], [place] [address] Nov, [facility] [address] [id number] [address] [place] [address], [place] [address] Nov, [facility] [address] [id number] [address] [place] [address], [place] [address] Oct, [facility] [address] [id number] [address] [place] [address], [place] [address] Oct, [facility] [address] [id number] [address] [place] [address], [place] [address] Oct, [facility] [address] [id number] [address] [place] [address], [place] [address] Oct, [facility] [address] [id number] [address] [place] [address], [place] [address] Oct, [facility] [address] [id number] [address] [place] [address], [place] [address] Sep, [facility] [address] [id number] [address] [place] [address], [place] [address] Sep, [facility] [address] [id number] [address] [place] [address], [place] [address] Sep, [facility] [address] [id number] [address] [place] [address], [place] [address] Sep, [facility] [address] [id number] [address] [place] [address], [place] [address] Sep, [facility] [address] [id number] [address] [place] [address] Sep, [facility] [address] [id number] [address] [place] [address], [place] [address] Sep, [facility] [address] [id number] [address] [place] [address] Sep, [facility] [address] [id number] [address] [place] [address], [place] [address] Sep, [facility] [address] [id number] [address] [place] [address] Aug, [facility] [address] [id number] [address] [place] [address], [place] [address] Aug, [facility] [address] [id number] [address] [place] [address], [place] [address] Aug, [facility] [address] [id number] [address] [place] [address], [place] [address] Aug, [facility] [address] [id number] [address] [place] [address], [place] [address] Aug, [facility] [address] [id number] [address] [place] [address] Aug, [facility] [address] [id number] [address] [place] [address], [place] [address] Aug, [facility] [address] [id number] [address] [place] [address] Aug, [facility] [address] [id number] [address] [place] [address] Aug, [facility] [address] [id number] [address] [place] [address], [place] [address] Aug, [facility] [address] [id number] [address] [place] [address], [place] [address] Aug, [facility] [address] [id number] [address] [place] [address], [place] [address] Aug, [facility] [address] [id number] [address] [place] [address], [place] [address] Jul, [facility] [address] [id number] [address] [place] [address], [place] [address] Jul, [facility] [address] [id number] [address] [place] [address], [place] [address] Jul, [facility] [address] [id number] [address] [place] [address], [place] [address] Jul, [facility] [address] [id number] [address] [place] [address], [place] [address] Jul, [facility] [address] [id number] [address] [place] [address], [place] [address] Jul, [facility] [address] [id number] [address] [place] [address], [place] [address] Jul, [facility] [address] [id number] [address] [place] [address], [place] [address] Jul, [facility] [address] [id number] [address] [place] [address], [place] [address] Jul, [facility] [address] [id number] [address] [place] [address], [place] [address] Jul, [facility] [address] [id number] [address] [place] [address], [place] [address] Nov, [facility] [address] [id number] [address] [place] [address], [place] [address] Aug, [facility] [address] [id number] [address] [place] [address], [place] [address] Aug, [facility] [address] [id number] [address] [place] [address], [place] [address] Aug, [facility] [address] [id number] [address] [place] [address], [place] [address] Aug, [facility] [address] [id number] [address] [place] [address], [place] [address] Jul, IMMUNIZATIONS No Known Immunizations SOCIAL HISTORY Never Assessed REASON FOR VISIT EMR-[facility] PLAN OF CARE VITAL SIGNS MEDICATIONS Unknown [...] Suicide attempt by hanging 2015 Hospitalization History [facility] 01/30/2018-02/10/20 08 Hospitalization History [facility] 05/04/18-
--- OUTSIDE RECORDS SUMMARY | 2020-04-04 02:10 | XMS REPORT ---
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 Active 25432578 Problem Generalized anxiety disorder 300.02 A ctive 23205670 Problem Obsessive-compulsive disorders 300.3 Active 545904564 Problem Catatonic schizophrenia, 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 638746283 Problem Disorganized schizophrenia, 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 53313871 Problem Paranoid schizophrenia F20.0 Active 64874775 Problem Borderline personality disorder F60.3 Active 12856163 Problem Paranoid schizophrenia, unspecified condition 295.30 Active 13194112 Problem Schizoaffective disorder, depressive type F25.1 Active 03219380 Problem Bipolar disorder, unspecified 296.80 Active 61389497 Problem Schizoaffective disorder, unspecified F25.9 Active 00320362 Problem Attention deficit hyperactivity disorder (ADHD), inattentive type, 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 90452865 Problem Posttraumatic stress disorder F43.10 Active 75141677 Problem High risk medication use Z79.899 Activ e [id number] ALLERGIES No Information ENCOUNTERS Encounter Location Date Diagnosis [facility] [address] [facility] [id number] [address] [place] [phone] Mar, [facility] [address] [facility] [id number] [address] [place] [phone] Jan, Paranoid schizophrenia F20.0 ; Posttraumatic stress disorder F43.10 ; Attention deficit hyperactivity disorder (ADHD), inattentive type, 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 and Borderline personality disorder F60.3 [facility] [address] [facility] [id number] [address] [place] [phone] Dec, Paranoid schizophrenia F20.0 ; Posttraumatic stress disorder F43.10 ; Attention deficit hyperactivity disorder (ADHD), inattentive type, 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 and Borderline personality disorder F60.3 [facility] [address] [facility] [id number] [address] [place] [phone] Dec, Paranoid schizophrenia F20.0 ; Posttraumatic stress disorder F43.10 ; Attention deficit hyperactivity disorder (ADHD), inattentive type, 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 and Borderline personality disorder F60.3 [facility] [address] [place] [place] [id number] [place] [phone] Oct, Paranoid schizophrenia F20.0 ; Posttraumatic stress disorder F43.10 ; Attention deficit hyperactivity disorder (ADHD), inattentive type, 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 and Borderline personality disorder F60.3 [facility] [address] [place] [place] [id number] [address] [place] [phone] Oct, Paranoid schizophrenia F20.0 ; Posttraumatic stress disorder F43.10 ; Attention deficit hyperactivity disorder (ADHD), inattentive type, 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 [address] [facility] [id number] [address] [place] [phone] Jul, Dry skin dermatitis L85.3 [facility] [address] [facility] [id number] [address] [place] [phone] Jul, [facility] [address] [place] [place] [id number] [address] [place] [phone] Jul, Paranoid schizophrenia F20.0 [facility] [address] [place] [place] [id number] [address] [place] [phone] May, Paranoid schizophrenia F20.0 ; Posttraumatic stress disorder F43.10 ; Attention deficit hyperactivity disorder (ADHD), inattentive type, 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 and Borderline personality disorder F60.3 [facility] [address] [id number] [address] [place] [phone] May, [facility] [address] [id number] [address] [place] [phone] May, Paranoid schizophrenia F20.0 [facility] [address] [id number] [address] [place] [phone] May, Paranoid schizophrenia F20.0 ; Posttraumatic stress disorder F43.10 ; Attention deficit hyperactivity disorder (ADHD), inattentive type, 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 and Borderline personality disorder F60.3 [facility] [address] [id number] [address] [place] [phone] Apr, [facility] [address] [id number] [address] [place] [address] Apr, Paranoid schizophrenia F20.0 ; Posttraumatic stress disorder F43.10 ; Attention deficit hyperactivity disorder (ADHD), inattentive type, 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 and Borderline personality disorder F60.3 [facility] [address] [id number] [address] [place] [phone] Apr, [facility] [address] [id number] [address] [place] [id number] Apr, Schizoaffective disorder, de pressive type F25.1 and Borderline personality disorder F60.3 [facility] [address] [id number] [address] [place] [phone] Apr, Paranoid schizophrenia F20.0 ; Posttraumatic stress disorder F43.10 ; Attention deficit hyperactivity disorder (ADHD), inattentive type, 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 and Borderline personality disorder F60.3 [facility] [address] [id number] [address] [place] [phone] Apr, [facility] [address] [id number] [address] [place] [phone] Apr, Paranoid schizophrenia F20.0 ; Posttraumatic stress disorder F43.10 ; Attention deficit hyperactivity disorder (ADHD), inattentive type, 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 and Borderline personality disorder F60.3 [facility] [address] [id number] [address] [place] [phone] Apr, [facility] [address] [id number] [address] [place] [phone] Mar, Paranoid schizophrenia F20.0 [facility] [address] [id number] [address] [place] [phone] Mar, [facility] [address] [facility] [id number] [address] [place] [phone] Mar, Paranoid schizophrenia F20.0 ; Posttraumatic stress disorder F43.10 ; Attention deficit hyperactivity disorder (ADHD), inattentive type, 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 and Borderline personality disorder F60.3 [facility] [address] [facility] [id number] [address] [place] [phone] February, Paranoid schizophrenia F20.0 [facility] [address] [id number] [address] [place] [phone] February, Paranoid schizophrenia F20.0 ; Posttraumatic stress disorder F43.10 ; Attention deficit hyperactivity disorder (ADHD), inattentive type, 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 and Borderline personality disorder F60.3 [facility] [address] [id number] [address] [place] [phone] February, Paranoid schizophrenia F20.0 ; Posttraumatic stress disorder F43.10 ; Attention deficit hyperactivity disorder (ADHD), inattentive type, 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 and Borderline personality disorder F60.3 [facility] [address] [id number] [address] [place] [phone] February, [facility] [address] [id number] [address] [place] [phone] February, Paranoid schizophrenia F20.0 [facility] [address] [facility] [id number] [address] [place] [phone] February, Paranoid schizophrenia F20.0 [facility] [address] [facility] [id number] [address] [place] [phone] February, Paranoid schizophrenia F20.0 ; Posttraumatic stress disorder F43.10 ; Attention deficit hyperactivity disorder (ADHD), inattentive type, 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 and Borderline personality disorder F60.3 [facility] [address] [facility] [id number] [address] [place] [phone] Jan, Paranoid schizophrenia F20.0 ; Posttraumatic stress disorder F43.10 ; Attention deficit hyperactivity disorder (ADHD), inattentive type, 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 and Borderline personality disorder F60.3 [facility] [address] [facility] [id number] [address] [place] [phone] Jan, Paranoid schizophrenia F20.0 [facility] [address] [facility] [id number] [address] [place] [phone] Jan, Paranoid schizophrenia F20.0 [facility] [address] [id number] [address] [place] [phone] Jan, Paranoid schizophrenia F20.0 ; Posttraumatic stress disorder F43.10 ; Attention deficit hyperactivity disorder (ADHD), inattentive type, 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 and Borderline personality disorder F60.3 [facility] [address] [facility] [id number] [address] [place] [phone] Dec, [facility] [address] [facility] [id number] [address] [place] [phone] Nov, Paranoid schizophrenia F20.0 ; Posttraumatic stress disorder F43.10 ; Attention deficit hyperactivity disorder (ADHD), inattentive type, 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 and Borderline personality disorder F60.3 [facility] [address] [facility] [id number] [address] [place] [phone] Nov, [facility] [address] [facility] [id number] [address] [place] [id number] Oct, Paranoid schizophrenia F20.0 [facility] [address] [id number] [address] [place] [phone] Oct, Paranoid schizophrenia F20.0 ; Posttraumatic stress disorder F43.10 ; Attention deficit hyperactivity disorder (ADHD), inattentive type, 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 ; Borderline personality disorder F60.3 and Other certified personal chef (current) drug therapy Z79.899 [facility] [address] [id number] [address] [place] [phone] Oct, [facility] [address] [id number] [address] [place] [phone] Oct, [facility] [address] [id number] [address] [place] [address], [place] [address] Sep, [facility] [address] [id number] [address] [place] [address] Sep, Paranoid schizophrenia F20.0 ; Posttraumatic stress disorder F43.10 ; Attention deficit hyperactivity disorder (ADHD), inattentive type, 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 and Borderline personality disorder F60.3 [facility] [address] [id number] [address] [place] [phone] Sep, Paranoid schizophrenia F20.0 [facility] [address] [id number] [address] [place] [phone] Aug, Paranoid schizophrenia F20.0 ; Posttraumatic stress disorder F43.10 ; Attention deficit hyperactivity disorder (ADHD), inattentive type, 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 and Borderline personality disorder F60.3 [facility] [address] [id number] [address] [place] [phone] Aug, Paranoid schizophrenia F20.0 ; Posttraumatic stress disorder F43.10 ; Attention deficit hyperactivity disorder (ADHD), inattentive type, 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 and Borderline personality disorder F60.3 [facility] [address] [id number] [address] [place] [phone] 09 Aug, 2017 [facility] [address] [id number] [address] [place] [phone] Jul, Paranoid schizophrenia F20.0 ; Posttraumatic stress disorder F43.10 ; Attention deficit hyperactivity disorder (ADHD), inattentive type, 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 and Borderline personality disorder F60.3 [facility] [address] [facility] [id number] [address] [place] [phone] Jul, Paranoid schizophrenia F20.0 [facility] [address] [id number] [address] [place] [phone] Jul, Paranoid schizophrenia F20.0 ; Posttraumatic stress disorder F43.10 ; Attention deficit hyperactivity disorder (ADHD), inattentive type, 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 and Borderline personality disorder F60.3 [facility] [address] [id number] [address] [place] [phone] Jun, Paranoid schizophrenia F20.0 ; Posttraumatic stress disorder F43.10 ; Attention deficit hyperactivity disorder (ADHD), inattentive type, 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 and Borderline personality disorder F60.3 [facility] [address] [facility] [id number] [address] [place] [phone] May, Other certified personal chef (current) dr gabriel parra Z79.899 [facility] [address] [facility] [id number] [address] [place] [phone] May, [facility] [address] [facility] [id number] [address] [place] [phone] May, [facility] [address] [facility] [id number] [address] [place] [phone] May, Attention deficit hyperactiv ity disorder (ADHD), inattentive type, mild F90.0 [facility] [address] [id number] [address] [place] [phone] May, [facility] [address] [facility] [id number] [address] [place] [phone] May, Attention deficit hyperactiv ity disorder (ADHD), inattentive type, mild F90.0 [facility] [address] [facility] [id number] [address] [place] [address] May, Paranoid schizophrenia F20.0 ; Posttraumatic stress disorder F43.10 ; Attention deficit hyperactivity disorder (ADHD), inattentive type, 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 and Other fci (current) drug therapy Z79.899 [facility] [address] [id number] [address] [place] [phone] Apr, Paranoid schizophrenia F20.0 [facility] [address] [id number] [address] [place] [phone] Apr, Paranoid schizophrenia F20.0 ; Posttraumatic stress disorder F43.10 and Attention deficit hyperactivity disorder (ADHD), inattentive type, 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 [facility] [address] [id number] [address] [place] [phone] February, [facility] [address] [id number] [address] [place] [phone] February, Paranoid schizophrenia F20.0 ; Posttraumatic stress disorder F43.10 and Attention deficit hyperactivity disorder (ADHD), inattentive type, 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 [facility] [address] [id number] [address] [place] [phone] February, Paranoid schizophrenia F20.0 ; Posttraumatic stress disorder F43.10 and Attention deficit hyperactivity disorder (ADHD), inattentive type, 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 [facility] [address] [id number] [address] [place] [phone] Jan, Paranoid schizophrenia F20.0 ; Posttraumatic stress disorder F43.10 and Attention deficit hyperactivity disorder (ADHD), inattentive type, 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 [facility] [address] [id number] [address] [place] [address] [id number] Dec, Dental examination Z01.20 [facility] [address] [id number] [address] [place] [address] [id number] Nov, Dental examination Z01.20 [facility] [address] [id number] [address] [place] [address] [id number] Feb, 2017 Dental examination Z01.20 [facility] [address] [id number] [address] [place] [id number] 14 Nov, 2016 Dental caries K02.9 [facility] [address] [facility] [id number] [address] [place] [phone] 13 Nov, 2016 High risk medication use Z79 .899 [facility] [address] [facility] [id number] [address] [place] [phone] 01 Nov, 2016 Paranoid schizophrenia F20.0 ; Posttraumatic stress disorder F43.10 ; Attention deficit hyperactivity disorder (ADHD), inattentive type, 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 and Borderline personality disorder in adult F60.3 [facility] [address] [id number] [address] [place] [address] [id number] Oct, Dental caries K02.9 [facility] [address] [facility] [id number] [address] [place] [phone] Sep, Paranoid schizophrenia F20.0 ; Posttraumatic stress disorder F43.10 and Attention deficit hyperactivity disorder (ADHD), inattentive type, 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 [facility] [address] [facility] [id number] [address] [place] [id number] Aug, Paranoid schizophrenia F20.0 ; Posttraumatic stress disorder F43.10 and Attention deficit hyperactivity disorder (ADHD), inattentive type, 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 [facility] [address] [facility] [id number] [address] [place] [phone] Aug, Strep throat J02.0 and Cough R05 [facility] [address] [facility] [id number] [address] [place] [phone] Aug, [facility] [address] [facility] [id number] [address] [place] [phone] Jul, Paranoid schizophrenia F20.0 ; Posttraumatic stress disorder F43.10 and Attention deficit hyperactivity disorder (ADHD), inattentive type, 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 [facility] [address] [facility] [id number] [address] [place] [phone] Jul, [facility] [address] [id number] [address] [place] [id number] Jun, Paranoid schizophrenia F20.0 ; Posttraumatic stress disorder F43.10 and Attention deficit hyperactivity disorder (ADHD), inattentive type, 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 [facility] [address] [id number] [address] [place] [address] [id number] Jun, Dental examination Z01.20 [facility] [address] [id number] [address] [place] [phone] Jun, [facility] [address] [id number] [address] [place] [phone] May, Paranoid schizophrenia F20.0 [facility] [address] [id number] [address] [place] [phone] May, Paranoid schizophrenia F20.0 ; Posttraumatic stress disorder F43.10 and Attention deficit hyperactivity disorder (ADHD), inattentive type, 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 [facility] [address] [id number] [address] [place] [phone] May, [facility] [address] [id number] [address] [place] [phone] May, Paranoid schizophrenia F20.0 [facility] [address] [id number] [address] [place] [phone] May, [facility] [address] [id number] [address] [place] [phone] May, Paranoid schizophrenia F20.0 [facility] [address] [id number] [address] [place] [phone] May, Schizoaffective disorder, un specified F25.9 [facility] [address] [id number] [address] [place] [phone] May, Schizoaffective disorder, un specified F25.9 [facility] [address] [id number] [address] [place] [phone] May, [facility] [address] [id number] [address] [address] May, Paranoid schizophrenia F20.0 [facility] [address] [id number] [address] [place] [address], [place] [address] May, Paranoid schizophrenia F20.0 ; Posttraumatic stress disorder F43.10 and Attention deficit hyperactivity disorder (ADHD), inattentive type, 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 [facility] [address] [id number] [address] [place] [phone] Mar, [facility] [address] [id number] [address] [place] [address], [place] [address] Mar, Paranoid schizophrenia F20.0 ; Posttraumatic stress disorder F43.10 and Attention deficit hyperactivity disorder (ADHD), inattentive type, 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 [facility] [address] [id number] [address] [place] [address], [place] [address] Mar, Paranoid schizophrenia F20.0 [facility] [address] [id number] [address] [place] [address], [place] [address] Mar, Paranoid schizophrenia F20.0 ; Attention deficit hyperactivity disorder (ADHD), inattentive type, 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 and Posttraumatic stress disorder F43.10 [facility] [address] [id number] [address] [place] [address], [place] [address] Mar, [facility] [address] [id number] [address] [place] [phone] Mar, Paranoid schizophrenia F20.0 ; Posttraumatic stress disorder F43.10 and Attention deficit hyperactivity disorder (ADHD), inattentive type, 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 [facility] [address] [id number] [address] [place] [address], [place] [address] February, [facility] [address] [id number] [address] [place] [address], [place] [address] February, [facility] [address] [id number] [address] [place] [phone] February, [facility] [address] [id number] [address] [place] [phone] February, [facility] [address] [id number] [address] [place] [phone] Jan, Paranoid schizophrenia F20.0 [facility] [address] [id number] [address] [place] [address] [id number] Jan, Dental examination Z01.20 [facility] [address] [id number] [address] [place] [address] [id number] Jan, Dental caries K02.9 [facility] [address] [id number] [address] [place] [address] [id number] Jan, Dental examination Z01.20 [facility] [address] [id number] [address] [place] [address] [id number] Dec, Encounter for dental examina tion Z01.20 [facility] [address] [id number] [address] [place] [phone] Dec, Paranoid schizophrenia F20.0 [facility] [address] [id number] [address] [place] [address] [id number] Dec, Dental examination Z01.20 [facility] [address] [id number] [address] [place] [phone] Dec, [facility] [address] [id number] [address] [place] [phone] Dec, Paranoid schizophrenia F20.0 ; Posttraumatic stress disorder F43.10 and Attention deficit hyperactivity disorder (ADHD), inattentive type, 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 [facility] [address] [id number] [address] [place] [phone] Nov, Schizoaffective disorder, un specified F25.9 [facility] [address] [id number] [address] [place] [phone] Oct, Paranoid schizophrenia F20.0 [facility] [address] [id number] [address] [place] [phone] Oct, [facility] [address] [facility] [id number] [address] [place] [phone] Sep, Paranoid schizophrenia F20.0 ; Posttraumatic stress disorder F43.10 and Attention deficit hyperactivity disorder (ADHD), inattentive type, 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 [facility] [address] [id number] [address] [place] [address] Sep, [facility] [address] [id number] [address] [place] [id number] Sep, Paranoid schizophrenia F20.0 ; Posttraumatic stress disorder F43.10 and Attention deficit hyperactivity disorder (ADHD), inattentive type, 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 [facility] [address] [id number] [address] [place] [address] Aug, Paranoid schizophrenia F20.0 [facility] [address] [facility] [id number] [address] [place] [address] Aug, [facility] [address] [facility] [id number] [address] [place] [address] Aug, Posttraumatic stress disorde r F43.10 ; Paranoid schizophrenia F20.0 and Attention deficit hyperactivity disorder (ADHD), inattentive type, 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 [facility] [address] [facility] [id number] [address] [place] [address] Jul, Bipolar disorder, unspecifie d F31.9 [facility] [address] [facility] [id number] [address] [place] [address] Jul, [facility] [address] [facility] [id number] [address] [place] [address] Jun, [facility] [address] [facility] [id number] [address] [place] [address] Jun, Schizoaffective disorder, ch ronic 295.72 ; Posttraumatic stress disorder 309.81 and Attention deficit disorder of childhood without mention of hyperactivity 314.00 [facility] [address] [facility] [id number] [address] [place] [address] May, [facility] [address] [id number] [address] [place] [address] May, [facility] [address] [id number] [address] [place] [address] May, Schizoaffective disorder, ch ronic 295.72 ; Posttraumatic stress disorder 309.81 ; Attention deficit disorder of childhood without mention of hyperactivity 314.00 and Bipolar disorder, unspecified 296.80 [facility] [address] [id number] [address] [place] [address] Apr, Schizoaffective disorder, ch ronic 295.72 [facility] [address] [id number] [address] [place] [address] Apr, [facility] [address] [id number] [address] [place] [address] Apr, Schizoaffective disorder, ch ronic 295.72 ; Posttraumatic stress disorder 309.81 and Attention deficit disorder of childhood without mention of hyperactivity 314.00 [facility] [address] [id number] [address] [place] [address] Mar, Disorganized schizophrenia, 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 [facility] [address] [id number] [address] [place] [address] Mar, [facility] [address] [id number] [address] [place] [phone] Mar, [facility] [address] [facility] [id number] [address] [place] [address] Mar, [facility] [address] [id number] [address] [place] [address] Mar, [facility] [address] [facility] [id number] [address] [place] [address] February, Schizoaffective disorder, ch ronic 295.72 [facility] [address] [facility] [id number] [address] [place] [address] February, [facility] [address] [id number] [address] [place] [address] February, Attention 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 ; Posttraumatic stress disorder 309.81 and Schizoaffective disorder, chronic 295.72 [facility] [address] [id number] [address] [place] [address] Jan, [facility] [address] [id number] [address] [place] [address] Jan, [facility] [address] [id number] [address] [place] [phone] Jan, [facility] [address] [id number] [address] [place] [address] Dec, [facility] [address] [id number] [address] [place] [phone] Dec, [facility] [address] [id number] [address] [place] [address] Dec, [facility] [address] [id number] [address] [place] [id number] Dec, [facility] [address] [id number] [address] [place] [phone] Dec, [facility] [address] [id number] [address] [place] [phone] Dec, [facility] [address] [id number] [address] [place] [address] Dec, [facility] [address] [id number] [address] [place] [phone] Dec, [facility] [address] [id number] [address] [place] [phone] Nov, [facility] [address] [id number] [address] [place] [phone] Nov, [facility] [address] [id number] [address] [place] [address] [place] [address] Nov, 2014 [facility] [address] [id number] [address] [place] [address], [place] [address] Nov, 2014 [facility] [address] [id number] [address] [place] [address], [place] [address] Nov, 2014 [facility] [address] [id number] [address] [place] [address], [place] [address] Nov, 2014 [facility] [address] [id number] [address] [place] [address], [place] [address] Nov, 2014 [facility] [address] [id number] [address] [place] [address], [place] [address] Nov, 2014 [facility] [address] [id number] [address] [place] [address], [place] [address] Nov, [facility] [address] [id number] [address] [place] [address], [place] [address] Nov, [facility] [address] [id number] [address] [place] [address], [place] [address] Oct, [facility] [address] [id number] [address] [place] [address], [place] [address] Oct, [facility] [address] [id number] [address] [place] [phone] Oct, [facility] [address] [id number] [address] [place] [address], [place] [address] Oct, [facility] [address] [id number] [address] [place] [phone] Oct, [facility] [address] [id number] [address] [place] [address], [place] [address] Oct, [facility] [address] [id number] [address] [place] [address], [place] [address] Oct, [facility] [address] [id number] [address] [place] [address], [place] [address] Sep, [facility] [address] [id number] [address] [place] [address], [place] [address] 17 Sep, 2014 [facility] [address] [id number] [address] [place] [address], [place] [address] 15 Sep, 2014 [facility] [address] [id number] [address] [place] [address], [place] [address] 15 Sep, 2014 [facility] [address] [id number] [address] [place] [address], [place] [address] Aug, [facility] [address] [id number] [address] [place] [address], [place] [address] Aug, [facility] [address] [id number] [address] [place] [address], [place] [address] Aug, [facility] [address] [id number] [address] [place] [address], [place] [address] Aug, [facility] [address] [id number] [address] [place] [address], [place] [address] Aug, [facility] [address] [id number] [address] [place] [address], [place] [address] Aug, [facility] [address] [id number] [address] [place] [address], [place] [address] Jul, [facility] [address] [id number] [address] [place] [address], [place] [address] 29 Jul, 2014 [facility] [address] [id number] [address] [place] [address], [place] [address] 24 Jul, 2014 [facility] [address] [id number] [address] [place] [address], [place] [address] 24 Jul, 2014 [facility] [address] [id number] [address] [place] [address], [place] [address] 15 Jul, 2014 [facility] [address] [id number] [address] [place] [address], [place] [address] 15 Jul, 2014 [facility] [address] [id number] [address] [place] [address] [place] [address] 27 Sep, 2013 [facility] [address] [id number] [facility] [place] [address] 27 Sep, 2013 [facility] [address] [id number] [facility] [place] [address] 26 Sep, 2013 [facility] [address] [id number] [address] [place] [address], [place] [address] 26 Sep, 2013 [facility] [address] [id number] [address] [place] [address], [place] [address] 26 Jun, 2013 [facility] [address] [id number] [address] [place] [address], [place] [address] 26 Jun, 2013 [facility] [address] [id number] [address] [place] [address], [place] [address] 16 Jun, 2013 [facility] [address] [id number] [address] [place] [address], [place] [address] 16 Jun, 2013 [facility] [address] [id number] [address] [place] [address], [place] [address] 16 Jun, 2013 [facility] [address] [id number] [address] [place] [address], [place] [address] 16 Jun, 2013 [facility] [address] [id number] [address] [place] [address], [place] [address] 04 Jun, 2013 [facility] [address] [id number] [address] [place] [address], [place] [address] May, 2013 [facility] [address] [id number] [address] [place] [address], [place] [address] May, [facility] [address] [id number] [address] [place] [address], [place] [address] May, 2013 [facility] [address] [id number] [address] [place] [address], [place] [address] May, 2013 [facility] [address] [id number] [address] [place] [address], [place] [address] May, 2013 [facility] [address] [id number] [facility] [place] [address] May, [facility] [address] [id number] [facility] [place] [address] May, [facility] [address] [id number] [address] [place] [address], [place] [address] May, [facility] [address] [id number] [address] [place] [address], [place] [address] May, [facility] [address] [id number] [address] [place] [address], [place] [address] May, [facility] [address] [id number] [address] [place] [address], [place] [address] Apr, [facility] [address] [id number] [address] [place] [address], [place] [address] Apr, [facility] [address] [id number] [address] [place] [address], [place] [address] Apr, [facility] [address] [id number] [address] [place] [address], [place] [address] Apr, [facility] [address] [id number] [address] [place] [address], [place] [address] Apr, [facility] [address] [id number] [address] [place] [address], [place] [address] Apr, [facility] [address] [id number] [address] [place] [address], [place] [address] Apr, [facility] [address] [id number] [address] [place] [address], [place] [address] Apr, [facility] [address] [id number] [address] [place] [address], [place] [address] Apr, [facility] [address] [id number] [address] [place] [address], [place] [address] Apr, [facility] [address] [id number] [address] [place] [address], [place] [address] Mar, [facility] [address] [id number] [facility] [place] [address] Mar, [facility] [address] [id number] [facility] [place] [address] 25 Mar, 2014 [facility] [address] [id number] [facility] [place] [address] 24 Mar, 2014 [facility] [address] [id number] [address] [place] [address], [place] [address] 20 Mar, 2014 [facility] [address] [id number] [address] [place] [address], [place] [address] 18 Mar, 2014 [facility] [address] [id number] [address] [place] [address], [place] [address] 18 Mar, 2014 [facility] [address] [id number] [address] [place] [address], [place] [address] 16 Mar, 2014 [facility] [address] [id number] [address] [place] [address], [place] [address] 16 Mar, 2014 [facility] [address] [id number] [address] [place] [address], [place] [address] 13 Mar, 2014 [facility] [address] [id number] [address] [place] [address], [place] [address] 13 Mar, 2014 [facility] [address] [id number] [address] [place] [address], [place] [address] 11 Mar, 2014 [facility] [address] [id number] [address] [place] [address], [place] [address] 11 Mar, 2014 [facility] [address] [id number] [address] [place] [address], [place] [address] 10 Mar, 2014 [facility] [address] [id number] [address] [place] [address], [place] [address] 09 Mar, 2014 [facility] [address] [id number] [address] [place] [address], [place] [address] 09 Mar, 2014 [facility] [address] [id number] [facility] [place] [address] Mar, [facility] [address] [id number] [address] [place] [address], [place] [address] Mar, [facility] [address] [id number] [address] [place] [address], [place] [address] Mar, [facility] [address] [id number] [address] [place] [address], [place] [address] Mar, [facility] [address] [id number] [address] [place] [address], [place] [address] February, [facility] [address] [id number] [address] [place] [address], [place] [address] February, [facility] [address] [id number] [address] [place] [address], [place] [address] February, [facility] [address] [id number] [address] [place] [address], [place] [address] February, [facility] [address] [id number] [address] [place] [address], [place] [address] February, [facility] [address] [id number] [address] [place] [address], [place] [address] February, [facility] [address] [id number] [address] [place] [address], [place] [address] February, [facility] [address] [id number] [address] [place] [address], [place] [address] February, [facility] [address] [id number] [address] [place] [address], [place] [address] February, [facility] [address] [id number] [address] [place] [address], [place] [address] February, [facility] [address] [id number] [address] [place] [address], [place] [address] February, [facility] [address] [id number] [address] [place] [address], [place] [address] February, [facility] [address] [id number] [address] [place] [address], [place] [address] February, [facility] [address] [id number] [address] [place] [address], [place] [address] February, [facility] [address] [id number] [address] [place] [address], [place] [address] February, [facility] [address] [id number] [address] [place] [address], [place] [address] February, [facility] [address] [id number] [address] [place] [address], [place] [address] February, [facility] [address] [id number] [address] [place] [address], [place] [address] February, [facility] [address] [id number] [address] [place] [address], [place] [address] February, [facility] [address] [id number] [address] [place] [address], [place] [address] February, [facility] [address] [id number] [address] [place] [address], [place] [address] February, [facility] [address] [id number] [address] [place] [address], [place] [address] Jan, [facility] [address] [id number] [address] [place] [address], [place] [address] Jan, [facility] [address] [id number] [address] [place] [address], [place] [address] Jan, [facility] [address] [id number] [address] [place] [address], [place] [address] Jan, [facility] [address] [id number] [address] [place] [address], [place] [address] Jan, [facility] [address] [id number] [address] [place] [address], [place] [address] Jan, [facility] [address] [id number] [address] [place] [address], [place] [address] 10 Jan, 2014 [facility] [address] [id number] [facility] [place] [address] 10 Jan, 2014 [facility] [address] [id number] [address] [place] [address], [place] [address] 21 Dec, 2013 [facility] [address] [id number] [address] [place] [address], [place] [address] 20 Dec, 2013 [facility] [address] [id number] [address] [place] [address], [place] [address] 20 Dec, 2013 [facility] [address] [id number] [address] [place] [address], [place] [address] 19 Dec, 2013 [facility] [address] [id number] [address] [place] [address], [place] [address] 19 Dec, 2013 [facility] [address] [id number] [address] [place] [address], [place] [address] 15 Dec, 2013 [facility] [address] [id number] [address] [place] [address], [place] [address] 15 Dec, 2013 [facility] [address] [id number] [address] [place] [address], [place] [address] 11 Dec, 2013 [facility] [address] [id number] [address] [place] [address], [place] [address] 10 Dec, 2013 [facility] [address] [id number] [address] [place] [address], [place] [address] 10 Dec, 2013 [facility] [address] [id number] [address] [place] [address], [place] [address] 18 Nov, 2013 [facility] [address] [id number] [address] [place] [address], [place] [address] 17 Nov, 2013 [facility] [address] [id number] [address] [place] [address], [place] [address] 17 Nov, 2013 [facility] [address] [id number] [address] [place] [address], [place] [address] 05 Nov, 2013 [facility] [address] [id number] [address] [place] [address], [place] [address] Nov, [facility] [address] [id number] [address] [place] [address], [place] [address] Oct, [facility] [address] [id number] [address] [place] [address], [place] [address] Oct, [facility] [address] [id number] [address] [place] [address], [place] [address] Oct, [facility] [address] [id number] [address] [place] [address], [place] [address] Sep, [facility] [address] [id number] [address] [place] [address], [place] [address] Sep, [facility] [address] [id number] [address] [place] [address], [place] [address] Sep, [facility] [address] [id number] [address] [place] [address], [place] [address] Sep, [facility] [address] [id number] [address] [place] [address], [place] [address] Aug, [facility] [address] [id number] [address] [place] [address], [place] [address] Aug, [facility] [address] [id number] [address] [place] [address], [place] [address] Jul, [facility] [address] [id number] [address] [place] [address], [place] [address] Jul, [facility] [address] [id number] [address] [place] [address], [place] [address] Jul, [facility] [address] [id number] [address] [place] [address], [place] [address] Jul, [facility] [address] [id number] [address] [place] [address], [place] [address] Jul, [facility] [address] [id number] [address] [place] [address], [place] [address] 25 Jun, 2013 [facility] [address] [id number] [address] [place] [address], [place] [address] 25 Jun, 2013 [facility] [address] [id number] [address] [place] [address], [place] [address] 19 Jun, 2013 [facility] [address] [id number] [address] [place] [address], [place] [address] 18 Jun, 2013 [facility] [address] [id number] [address] [place] [address], [place] [address] 16 Jun, 2013 [facility] [address] [id number] [address] [place] [address], [place] [address] 12 Jun, 2013 [facility] [address] [id number] [address] [place] [address], [place] [address] 11 Jun, 2013 [facility] [address] [id number] [address] [place] [address], [place] [address] May, [facility] [address] [id number] [address] [place] [address], [place] [address] May, [facility] [address] [id number] [address] [place] [address], [place] [address] Apr, [facility] [address] [id number] [address] [place] [address], [place] [address] Apr, [facility] [address] [id number] [address] [place] [address], [place] [address] Apr, [facility] [address] [id number] [address] [place] [address], [place] [address] Mar, [facility] [address] [id number] [address] [place] [address], [place] [address] Mar, [facility] [address] [id number] [address] [place] [address], [place] [address] February, [facility] [address] [id number] [address] [place] [address], [place] [address] February, [facility] [address] [id number] [address] [place] [address], [place] [address] February, [facility] [address] [id number] [address] [place] [address], [place] [id number] February, [facility] [address] [id number] [address] [place] [address], [place] [address] Jan, [facility] [address] [id number] [address] [place] [address], [place] [address] Jan, [facility] [address] [id number] [address] [place] [address], [place] [address] 16 Jan, 2013 [facility] [address] [id number] [address] [place] [address], [place] [address] 29 Dec, 2012 [facility] [address] [id number] [address] [place] [address], [place] [address] Dec, [facility] [address] [id number] [address] [place] [address], [place] [address] Dec, [facility] [address] [id number] [address] [place] [address], [place] [address] 08 Dec, 2012 [facility] [address] [id number] [address] [place] [address], [place] [address] Nov, [facility] [address] [id number] [address] [place] [address], [place] [address] Nov, [facility] [address] [id number] [address] [place] [address], [place] [address] Oct, [facility] [address] [id number] [address] [place] [address], [place] [address] Oct, [facility] [address] [id number] [address] [place] [address], [place] [address] Oct, [facility] [address] [id number] [address] [place] [address], [place] [address] Oct, [facility] [address] [id number] [address] [place] [address], [place] [address] Aug, [facility] [address] [id number] [address] [place] [address], [place] [address] Aug, [facility] [address] [id number] [address] [place] [address], [place] [address] Jun, [facility] [address] [id number] [address] [place] [address], [place] [address] May, [facility] [address] [id number] [address] [place] [address], [place] [address] May, [facility] [address] [id number] [address] [place] [address], [place] [address] Apr, [facility] [address] [id number] [address] [place] [address], [place] [address] Apr, [facility] [address] [id number] [address] [place] [address], [place] [address] Apr, [facility] [address] [id number] [address] [place] [address], [place] [address] Mar, [facility] [address] [id number] [address] [place] [address], [place] [address] Mar, [facility] [address] [id number] [address] [place] [address], [place] [address] Mar, [facility] [address] [id number] [address] [place] [address], [place] [address] Mar, [facility] [address] [id number] [address] [place] [address], [place] [address] Mar, [facility] [address] [id number] [address] [place] [address], [place] [address] February, [facility] [address] [id number] [address] [place] [address], [place] [address] February, [facility] [address] [id number] [address] [place] [address], [place] [address] February, [facility] [address] [id number] [address] [place] [address] February, [facility] [address] [id number] [address] [place] [address], [place] [address] February, [facility] [address] [id number] [address] [place] [address], [place] [address] February, [facility] [address] [id number] [address] [place] [address], [place] [address] February, [facility] [address] [id number] [address] [place] [address], [place] [address] 25 Jan, 2012 [facility] [address] [id number] [address] [place] [address], [place] [address] 18 Jan, 2012 [facility] [address] [id number] [address] [place] [address], [place] [address] 17 Jan, 2012 [facility] [address] [id number] [address] [place] [address], [place] [address] Jan, [facility] [address] [id number] [address] [place] [address], [place] [address] Jan, [facility] [address] [id number] [address] [place] [address], [place] [address] 04 Jan, 2012 [facility] [address] [id number] [address] [place] [address], [place] [address] 30 Dec, 2011 [facility] [address] [id number] [address] [place] [address], [place] [address] 24 Dec, 2011 [facility] [address] [id number] [address] [place] [address], [place] [address] 20 Dec, 2011 [facility] [address] [id number] [address] [place] [address], [place] [address] 13 Dec, 2011 [facility] [address] [id number] [address] [place] [address], [place] [address] 06 Dec, 2011 [facility] [address] [id number] [address] [place] [address], [place] [address] 28 Nov, 2011 [facility] [address] [id number] [address] [place] [address], [place] [address] Nov, [facility] [address] [id number] [address] [place] [address], [place] [address] Nov, [facility] [address] [id number] [address] [place] [address], [place] [address] 14 Nov, 2011 [facility] [address] [id number] [address] [place] [address], [place] [address] Nov, [facility] [address] [id number] [address] [place] [address], [place] [address] Nov, [facility] [address] [id number] [address] [place] [address], [place] [address] Oct, [facility] [address] [id number] [address] [place] [address], [place] [address] Oct, [facility] [address] [id number] [address] [place] [address], [place] [address] Oct, [facility] [address] [id number] [address] [place] [address], [place] [address] Oct, [facility] [address] [id number] [address] [place] [address], [place] [address] Oct, [facility] [address] [id number] [address] [place] [address], [place] [address] Sep, [facility] [address] [id number] [address] [place] [address], [place] [address] Sep, [facility] [address] [id number] [address] [place] [address], [place] [address] Sep, [facility] [address] [id number] [address] [place] [address], [place] [address] Sep, [facility] [address] [id number] [address] [place] [address], [place] [address] Sep, [facility] [address] [id number] [address] [place] [address] Sep, [facility] [address] [id number] [address] [place] [address], [place] [address] Sep, [facility] [address] [id number] [address] [place] [address] Sep, [facility] [address] [id number] [address] [place] [address], [place] [address] Sep, [facility] [address] [id number] [address] [place] [address] Aug, [facility] [address] [id number] [address] [place] [address], [place] [address] Aug, [facility] [address] [id number] [address] [place] [address], [place] [address] Aug, [facility] [address] [id number] [address] [place] [address], [place] [address] Aug, [facility] [address] [id number] [address] [place] [address], [place] [address] Aug, [facility] [address] [id number] [address] [place] [address] Aug, [facility] [address] [id number] [address] [place] [address], [place] [address] Aug, [facility] [address] [id number] [address] [place] [address] Aug, [facility] [address] [id number] [address] [place] [address] Aug, [facility] [address] [id number] [address] [place] [address], [place] [address] Aug, [facility] [address] [id number] [address] [place] [address], [place] [address] Aug, [facility] [address] [id number] [address] [place] [address], [place] [address] Aug, [facility] [address] [id number] [address] [place] [address], [place] [address] Jul, [facility] [address] [id number] [address] [place] [address], [place] [address] Jul, [facility] [address] [id number] [address] [place] [address], [place] [address] Jul, [facility] [address] [id number] [address] [place] [address], [place] [address] Jul, [facility] [address] [id number] [address] [place] [address], [place] [address] Jul, [facility] [address] [id number] [address] [place] [address], [place] [address] Jul, [facility] [address] [id number] [address] [place] [address], [place] [address] Jul, [facility] [address] [id number] [address] [place] [address], [place] [address] Jul, [facility] [address] [id number] [address] [place] [address], [place] [address] Jul, [facility] [address] [id number] [address] [place] [address], [place] [address] Jul, [facility] [address] [id number] [address] [place] [address], [place] [address] Nov, [facility] [address] [id number] [address] [place] [address], [place] [address] Aug, [facility] [address] [id number] [address] [place] [address], [place] [address] Aug, [facility] [address] [id number] [address] [place] [address], [place] [address] Aug, [facility] [address] [id number] [address] [place] [address], [place] [address] Aug, [facility] [address] [id number] [address] [place] [address], [place] [address] Jul, IMMUNIZATIONS No Known Immunizations SOCIAL HISTORY Never Assessed [place] [place] VITAL SIGNS MEDICATIONS Unknown [...]
--- OUTSIDE RECORDS SUMMARY | 2020-04-04 02:10 | XMS REPORT ---
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 Active 94504601 Problem Generalized anxiety disorder 300.02 A ctive 88901185 Problem Obsessive-compulsive disorders 300.3 Active 702360090 Problem Catatonic schizophrenia, 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 862277376 Problem Disorganized schizophrenia, 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 49624181 Problem Paranoid schizophrenia F20.0 Active 42999419 Problem Borderline personality disorder F60.3 Active 12588789 Problem Paranoid schizophrenia, unspecified condition 295.30 Active 72448024 Problem Schizoaffective disorder, depressive type F25.1 Active 46571047 Problem Bipolar disorder, unspecified 296.80 Active 94092507 Problem Schizoaffective disorder, unspecified F25.9 Active 33615332 Problem Attention deficit hyperactivity disorder (ADHD), inattentive type, 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 97321738 Problem Posttraumatic stress disorder F43.10 Active 01900065 Problem High risk medication use Z79.899 Activ e [id number] ALLERGIES No Information ENCOUNTERS Encounter Location Date Diagnosis [facility] [address] [facility] [id number] [address] [place] [phone] Mar, [facility] [address] [facility] [id number] [address] [place] [address] Jan, Paranoid schizophrenia F20.0 ; Posttraumatic stress disorder F43.10 ; Attention deficit hyperactivity disorder (ADHD), inattentive type, 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 and Borderline personality disorder F60.3 [facility] [address] [facility] [id number] [address] [place] [phone] Dec, Paranoid schizophrenia F20.0 ; Posttraumatic stress disorder F43.10 ; Attention deficit hyperactivity disorder (ADHD), inattentive type, 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 and Borderline personality disorder F60.3 [facility] [address] [facility] [id number] [address] [place] [phone] Dec, Paranoid schizophrenia F20.0 ; Posttraumatic stress disorder F43.10 ; Attention deficit hyperactivity disorder (ADHD), inattentive type, 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 and Borderline personality disorder F60.3 [facility] [address] [place] [id number] [place] [address] Oct, Paranoid schizophrenia F20.0 ; Posttraumatic stress disorder F43.10 ; Attention deficit hyperactivity disorder (ADHD), inattentive type, 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 and Borderline personality disorder F60.3 [facility] [address] [place] [id number] [address] [place] [phone] Oct, Paranoid schizophrenia F20.0 ; Posttraumatic stress disorder F43.10 ; Attention deficit hyperactivity disorder (ADHD), inattentive type, 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 and Borderline personality disorder F60.3 [facility] [id number] [place] [address] Aug, [facility] [address] [place] [id number] [place] [address] Aug, Paranoid schizophrenia F20.0 ; Posttraumatic stress disorder F43.10 ; Attention deficit hyperactivity disorder (ADHD), inattentive type, 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 and Borderline personality disorder F60.3 [facility] [address] [facility] [id number] [address] [place] [address] Jul, Dry skin dermatitis L85.3 [facility] [address] [facility] [id number] [address] [place] [phone] Jul, [facility] [address] [place] [id number] [address] [place] [address] Jul, Paranoid schizophrenia F20.0 [facility] [address] [place] [id number] [address] [place] [address] May, Paranoid schizophrenia F20.0 ; Posttraumatic stress disorder F43.10 ; Attention deficit hyperactivity disorder (ADHD), inattentive type, 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 and Borderline personality disorder F60.3 [facility] [address] [id number] [address] [place] [address] May, [facility] [address] [id number] [address] [place] [phone] May, Paranoid schizophrenia F20.0 [facility] [address] [id number] [address] [place] [address] May, Paranoid schizophrenia F20.0 ; Posttraumatic stress disorder F43.10 ; Attention deficit hyperactivity disorder (ADHD), inattentive type, 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 and Borderline personality disorder F60.3 [facility] [address] [id number] [address] [place] [phone] Apr, [facility] [address] [id number] [address] [place] [address] Apr, Paranoid schizophrenia F20.0 ; Posttraumatic stress disorder F43.10 ; Attention deficit hyperactivity disorder (ADHD), inattentive type, 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 and Borderline personality disorder F60.3 [facility] [address] [id number] [address] [place] [address] Apr, [facility] [address] [id number] [address] [place] [phone] Apr, Schizoaffective disorder, de pressive type F25.1 and Borderline personality disorder F60.3 [facility] [address] [id number] [address] [place] [address] Apr, Paranoid schizophrenia F20.0 ; Posttraumatic stress disorder F43.10 ; Attention deficit hyperactivity disorder (ADHD), inattentive type, 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 and Borderline personality disorder F60.3 [facility] [address] [id number] [address] [place] [phone] Apr, [facility] [address] [id number] [address] [place] [address] Apr, Paranoid schizophrenia F20.0 ; Posttraumatic stress disorder F43.10 ; Attention deficit hyperactivity disorder (ADHD), inattentive type, 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 and Borderline personality disorder F60.3 [facility] [address] [id number] [address] [place] [phone] Apr, [facility] [address] [id number] [address] [place] [address] Mar, Paranoid schizophrenia F20.0 [facility] [address] [id number] [address] [place] [address] Mar, [facility] [address] [facility] [id number] [address] [place] [phone] Mar, Paranoid schizophrenia F20.0 ; Posttraumatic stress disorder F43.10 ; Attention deficit hyperactivity disorder (ADHD), inattentive type, 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 and Borderline personality disorder F60.3 [facility] [address] [facility] [id number] [address] [place] [address] February, Paranoid schizophrenia F20.0 [facility] [address] [id number] [address] [place] [address] February, Paranoid schizophrenia F20.0 ; Posttraumatic stress disorder F43.10 ; Attention deficit hyperactivity disorder (ADHD), inattentive type, 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 and Borderline personality disorder F60.3 [facility] [address] [id number] [address] [place] [address] February, Paranoid schizophrenia F20.0 ; Posttraumatic stress disorder F43.10 ; Attention deficit hyperactivity disorder (ADHD), inattentive type, 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 and Borderline personality disorder F60.3 [facility] [address] [id number] [address] [place] [address] February, [facility] [address] [id number] [address] [place] [address] February, Paranoid schizophrenia F20.0 [facility] [address] [facility] [id number] [address] [place] [phone] February, Paranoid schizophrenia F20.0 [facility] [address] [facility] [id number] [address] [place] [address] February, Paranoid schizophrenia F20.0 ; Posttraumatic stress disorder F43.10 ; Attention deficit hyperactivity disorder (ADHD), inattentive type, 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 and Borderline personality disorder F60.3 [facility] [address] [facility] [id number] [address] [place] [address] Jan, Paranoid schizophrenia F20.0 ; Posttraumatic stress disorder F43.10 ; Attention deficit hyperactivity disorder (ADHD), inattentive type, 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 and Borderline personality disorder F60.3 [facility] [address] [facility] [id number] [address] [place] [phone] Jan, Paranoid schizophrenia F20.0 [facility] [address] [facility] [id number] [address] [place] [address] Jan, Paranoid schizophrenia F20.0 [facility] [address] [id number] [address] [place] [address] Jan, Paranoid schizophrenia F20.0 ; Posttraumatic stress disorder F43.10 ; Attention deficit hyperactivity disorder (ADHD), inattentive type, 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 and Borderline personality disorder F60.3 [facility] [address] [facility] [id number] [address] [place] [address] Dec, [facility] [address] [facility] [id number] [address] [place] [address] Nov, Paranoid schizophrenia F20.0 ; Posttraumatic stress disorder F43.10 ; Attention deficit hyperactivity disorder (ADHD), inattentive type, 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 and Borderline personality disorder F60.3 [facility] [address] [facility] [id number] [address] [place] [phone] Nov, [facility] [address] [facility] [id number] [address] [place] [address] Oct, Paranoid schizophrenia F20.0 [facility] [address] [id number] [address] [place] [address] Oct, Paranoid schizophrenia F20.0 ; Posttraumatic stress disorder F43.10 ; Attention deficit hyperactivity disorder (ADHD), inattentive type, 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 ; Borderline personality disorder F60.3 and 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 [facility] [address] [id number] [address] [place] [address] Oct, [facility] [address] [id number] [address] [place] [address] Oct, [facility] [address] [id number] [address] [place] [address], [place] [address] Sep, [facility] [address] [id number] [address] [place] [phone] Sep, Paranoid schizophrenia F20.0 ; Posttraumatic stress disorder F43.10 ; Attention deficit hyperactivity disorder (ADHD), inattentive type, 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 and Borderline personality disorder F60.3 [facility] [address] [id number] [address] [place] [address] Sep, Paranoid schizophrenia F20.0 [facility] [address] [id number] [address] [place] [address] Aug, Paranoid schizophrenia F20.0 ; Posttraumatic stress disorder F43.10 ; Attention deficit hyperactivity disorder (ADHD), inattentive type, 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 and Borderline personality disorder F60.3 [facility] [address] [id number] [address] [place] [phone] Aug, Paranoid schizophrenia F20.0 ; Posttraumatic stress disorder F43.10 ; Attention deficit hyperactivity disorder (ADHD), inattentive type, 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 and Borderline personality disorder F60.3 [facility] [address] [id number] [address] [place] [phone] 09 Aug, 2017 [facility] [address] [id number] [address] [place] [address] Jul, Paranoid schizophrenia F20.0 ; Posttraumatic stress disorder F43.10 ; Attention deficit hyperactivity disorder (ADHD), inattentive type, 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 and Borderline personality disorder F60.3 [facility] [address] [facility] [id number] [address] [place] [address] Jul, Paranoid schizophrenia F20.0 [facility] [address] [id number] [address] [place] [address] Jul, Paranoid schizophrenia F20.0 ; Posttraumatic stress disorder F43.10 ; Attention deficit hyperactivity disorder (ADHD), inattentive type, 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 and Borderline personality disorder F60.3 [facility] [address] [id number] [address] [place] [address] Jun, Paranoid schizophrenia F20.0 ; Posttraumatic stress disorder F43.10 ; Attention deficit hyperactivity disorder (ADHD), inattentive type, 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 and Borderline personality disorder F60.3 [facility] [address] [facility] [id number] [address] [place] [address] May, 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 Z79.899 [facility] [address] [facility] [id number] [address] [place] [address] May, [facility] [address] [facility] [id number] [address] [place] [address] May, [facility] [address] [facility] [id number] [address] [place] [address] May, Attention deficit hyperactiv ity disorder (ADHD), inattentive type, mild F90.0 [facility] [address] [id number] [address] [place] [phone] May, [facility] [address] [facility] [id number] [address] [place] [address] May, Attention deficit hyperactiv ity disorder (ADHD), inattentive type, mild F90.0 [facility] [address] [facility] [id number] [address] [place] [address] May, Paranoid schizophrenia F20.0 ; Posttraumatic stress disorder F43.10 ; Attention deficit hyperactivity disorder (ADHD), inattentive type, 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 and Other snf (current) drug therapy Z79.899 [facility] [address] [id number] [address] [place] [address] Apr, Paranoid schizophrenia F20.0 [facility] [address] [id number] [address] [place] [address] Apr, Paranoid schizophrenia F20.0 ; Posttraumatic stress disorder F43.10 and Attention deficit hyperactivity disorder (ADHD), inattentive type, 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 [facility] [address] [id number] [address] [place] [address] February, [facility] [address] [id number] [address] [place] [address] February, Paranoid schizophrenia F20.0 ; Posttraumatic stress disorder F43.10 and Attention deficit hyperactivity disorder (ADHD), inattentive type, 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 [facility] [address] [id number] [address] [place] [address] February, Paranoid schizophrenia F20.0 ; Posttraumatic stress disorder F43.10 and Attention deficit hyperactivity disorder (ADHD), inattentive type, 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 [facility] [address] [id number] [address] [place] [address] Jan, Paranoid schizophrenia F20.0 ; Posttraumatic stress disorder F43.10 and Attention deficit hyperactivity disorder (ADHD), inattentive type, 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 [facility] [address] [id number] [address] [place] [id number] Dec, Dental examination Z01.20 [facility] [address] [id number] [address] [place] [address] [id number] Nov, Dental examination Z01.20 [facility] [address] [id number] [address] [place] [address] [id number] 23 Feb, 2017 Dental examination Z01.20 [facility] [address] [id number] [address] [place] [address] [id number] 14 Nov, 2016 Dental caries K02.9 [facility] [address] [facility] [id number] [address] [place] [address] 13 Nov, 2016 High risk medication use Z79 .899 [facility] [address] [facility] [id number] [address] [place] [phone] 01 Nov, 2016 Paranoid schizophrenia F20.0 ; Posttraumatic stress disorder F43.10 ; Attention deficit hyperactivity disorder (ADHD), inattentive type, 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 and Borderline personality disorder in adult F60.3 [facility] [address] [id number] [address] [place] [address] [id number] Oct, Dental caries K02.9 [facility] [address] [facility] [id number] [address] [place] [address] Sep, Paranoid schizophrenia F20.0 ; Posttraumatic stress disorder F43.10 and Attention deficit hyperactivity disorder (ADHD), inattentive type, 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 [address] [facility] [id number] [address] [place] [address] Aug, Strep throat J02.0 and Cough R05 [facility] [address] [facility] [id number] [address] [place] [address] Aug, [facility] [address] [facility] [id number] [address] [place] [address] Jul, Paranoid schizophrenia F20.0 ; Posttraumatic stress disorder F43.10 and Attention deficit hyperactivity disorder (ADHD), inattentive type, 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 [facility] [address] [facility] [id number] [address] [place] [phone] Jul, [facility] [address] [id number] [address] [place] [phone] Jun, Paranoid schizophrenia F20.0 ; Posttraumatic stress disorder F43.10 and Attention deficit hyperactivity disorder (ADHD), inattentive type, 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 [facility] [address] [id number] [address] [place] [address] [id number] Jun, Dental examination Z01.20 [facility] [address] [id number] [address] [place] [address] Jun, [facility] [address] [id number] [address] [place] [address] May, Paranoid schizophrenia F20.0 [facility] [address] [id number] [address] [place] [address] May, Paranoid schizophrenia F20.0 ; Posttraumatic stress disorder F43.10 and Attention deficit hyperactivity disorder (ADHD), inattentive type, 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 [facility] [address] [id number] [address] [place] [phone] May, [facility] [address] [id number] [address] [place] [address] May, Paranoid schizophrenia F20.0 [facility] [address] [id number] [address] [place] [address] May, [facility] [address] [id number] [address] [place] [address] May, Paranoid schizophrenia F20.0 [facility] [address] [id number] [address] [place] [phone] May, Schizoaffective disorder, un specified F25.9 [facility] [address] [id number] [address] [place] [address] May, Schizoaffective disorder, un specified F25.9 [facility] [address] [id number] [address] [place] [address] May, [facility] [address] [id number] [address] [address] May, Paranoid schizophrenia F20.0 [facility] [address] [id number] [address] [place] [address], [place] [address] May, Paranoid schizophrenia F20.0 ; Posttraumatic stress disorder F43.10 and Attention deficit hyperactivity disorder (ADHD), inattentive type, 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 [facility] [address] [id number] [address] [place] [phone] Mar, [facility] [address] [id number] [address] [place] [address], [place] [address] Mar, Paranoid schizophrenia F20.0 ; Posttraumatic stress disorder F43.10 and Attention deficit hyperactivity disorder (ADHD), inattentive type, 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 [facility] [address] [id number] [address] [place] [address], [place] [address] Mar, Paranoid schizophrenia F20.0 [facility] [address] [id number] [address] [place] [address], [place] [address] Mar, Paranoid schizophrenia F20.0 ; Attention deficit hyperactivity disorder (ADHD), inattentive type, 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 and Posttraumatic stress disorder F43.10 [facility] [address] [id number] [address] [place] [address], [place] [address] Mar, [facility] [address] [id number] [address] [place] [address] Mar, Paranoid schizophrenia F20.0 ; Posttraumatic stress disorder F43.10 and Attention deficit hyperactivity disorder (ADHD), inattentive type, 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 [facility] [address] [id number] [address] [place] [address], [place] [address] February, [facility] [address] [id number] [address] [place] [address], [place] [address] February, [facility] [address] [id number] [address] [place] [address] February, [facility] [address] [id number] [address] [place] [address] February, [facility] [address] [id number] [address] [place] [phone] Jan, Paranoid schizophrenia F20.0 [facility] [address] [id number] [address] [place] [phone] Jan, Dental examination Z01.20 [facility] [address] [id number] [address] [place] [address] [id number] Jan, Dental caries K02.9 [facility] [address] [id number] [address] [place] [address] [id number] Jan, Dental examination Z01.20 [facility] [address] [id number] [address] [place] [address] [id number] Dec, Encounter for dental examina tion Z01.20 [facility] [address] [id number] [address] [place] [phone] Dec, Paranoid schizophrenia F20.0 [facility] [address] [id number] [address] [place] [address] [id number] Dec, Dental examination Z01.20 [facility] [address] [id number] [address] [place] [id number] Dec, [facility] [address] [id number] [address] [place] [phone] Dec, Paranoid schizophrenia F20.0 ; Posttraumatic stress disorder F43.10 and Attention deficit hyperactivity disorder (ADHD), inattentive type, 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 [facility] [address] [id number] [address] [place] [address] Nov, Schizoaffective disorder, un specified F25.9 [facility] [address] [id number] [address] [place] [address] Oct, Paranoid schizophrenia F20.0 [facility] [address] [id number] [address] [place] [address] Oct, [facility] [address] [facility] [id number] [address] [place] [address] Sep, Paranoid schizophrenia F20.0 ; Posttraumatic stress disorder F43.10 and Attention deficit hyperactivity disorder (ADHD), inattentive type, 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 [facility] [address] [id number] [address] [place] [address] Sep, [facility] [address] [id number] [address] [place] [address] Sep, Paranoid schizophrenia F20.0 ; Posttraumatic stress disorder F43.10 and Attention deficit hyperactivity disorder (ADHD), inattentive type, 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 [facility] [address] [id number] [address] [place] [address] Aug, Paranoid schizophrenia F20.0 [facility] [address] [facility] [id number] [address] [place] [address] Aug, [facility] [address] [facility] [id number] [address] [place] [address] Aug, Posttraumatic stress disorde r F43.10 ; Paranoid schizophrenia F20.0 and Attention deficit hyperactivity disorder (ADHD), inattentive type, 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 [facility] [address] [facility] [id number] [address] [place] [address] Jul, Bipolar disorder, unspecifie d F31.9 [facility] [address] [facility] [id number] [address] [place] [address] Jul, [facility] [address] [facility] [id number] [address] [place] [address] Jun, [facility] [address] [facility] [id number] [address] [place] [address] Jun, Schizoaffective disorder, ch ronic 295.72 ; Posttraumatic stress disorder 309.81 and Attention deficit disorder of childhood without mention of hyperactivity 314.00 [facility] [address] [facility] [id number] [address] [place] [address] May, [facility] [address] [id number] [address] [place] [address] May, [facility] [address] [id number] [address] [place] [address] May, Schizoaffective disorder, ch ronic 295.72 ; Posttraumatic stress disorder 309.81 ; Attention deficit disorder of childhood without mention of hyperactivity 314.00 and Bipolar disorder, unspecified 296.80 [facility] [address] [id number] [address] [place] [address] Apr, Schizoaffective disorder, ch ronic 295.72 [facility] [address] [id number] [address] [place] [address] Apr, [facility] [address] [id number] [address] [place] [address] Apr, Schizoaffective disorder, ch ronic 295.72 ; Posttraumatic stress disorder 309.81 and Attention deficit disorder of childhood without mention of hyperactivity 314.00 [facility] [address] [id number] [address] [place] [address] Mar, Disorganized schizophrenia, 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 [facility] [address] [id number] [address] [place] [address] Mar, [facility] [address] [id number] [address] [place] [address] Mar, [facility] [address] [facility] [id number] [address] [place] [address] Mar, [facility] [address] [id number] [address] [place] [address] Mar, [facility] [address] [facility] [id number] [address] [place] [address] February, Schizoaffective disorder, ch ronic 295.72 [facility] [address] [facility] [id number] [address] [place] [address] February, [facility] [address] [id number] [address] [place] [address] February, Attention 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 ; Posttraumatic stress disorder 309.81 and Schizoaffective disorder, chronic 295.72 [facility] [address] [id number] [address] [place] [address] Jan, [facility] [address] [id number] [address] [place] [address] Jan, [facility] [address] [id number] [address] [place] [address] Jan, [facility] [address] [id number] [address] [place] [address] Dec, [facility] [address] [id number] [address] [place] [address] Dec, [facility] [address] [id number] [address] [place] [address] Dec, [facility] [address] [id number] [address] [place] [address] Dec, [facility] [address] [id number] [address] [place] [address] Dec, [facility] [address] [id number] [address] [place] [address] Dec, [facility] [address] [id number] [address] [place] [address] Dec, [facility] [address] [id number] [address] [place] [address] Dec, [facility] [address] [id number] [address] [place] [address] Nov, [facility] [address] [id number] [address] [place] [address] Nov, [facility] [address] [id number] [address] [place] [address] [place] [address] Nov, 2014 [facility] [address] [id number] [address] [place] [address], [place] [address] Nov, 2014 [facility] [address] [id number] [address] [place] [address], [place] [address] Nov, 2014 [facility] [address] [id number] [address] [place] [address], [place] [address] Nov, 2014 [facility] [address] [id number] [address] [place] [address], [place] [address] Nov, 2014 [facility] [address] [id number] [address] [place] [address], [place] [address] Nov, 2014 [facility] [address] [id number] [address] [place] [address], [place] [address] Nov, [facility] [address] [id number] [address] [place] [address], [place] [address] Nov, [facility] [address] [id number] [address] [place] [address], [place] [address] Oct, [facility] [address] [id number] [address] [place] [address], [place] [address] Oct, [facility] [address] [id number] [address] [place] [address] Oct, [facility] [address] [id number] [address] [place] [address], [place] [address] Oct, [facility] [address] [id number] [address] [place] [address] Oct, [facility] [address] [id number] [address] [place] [address], [place] [address] Oct, [facility] [address] [id number] [address] [place] [address], [place] [address] Oct, [facility] [address] [id number] [address] [place] [address], [place] [address] Sep, [facility] [address] [id number] [address] [place] [address], [place] [address] 17 Sep, 2014 [facility] [address] [id number] [address] [place] [address], [place] [address] 15 Sep, 2014 [facility] [address] [id number] [address] [place] [address], [place] [address] 15 Sep, 2014 [facility] [address] [id number] [address] [place] [address], [place] [address] Aug, [facility] [address] [id number] [address] [place] [address], [place] [address] Aug, [facility] [address] [id number] [address] [place] [address], [place] [address] Aug, [facility] [address] [id number] [address] [place] [address], [place] [address] Aug, [facility] [address] [id number] [address] [place] [address], [place] [address] Aug, [facility] [address] [id number] [address] [place] [address], [place] [address] Aug, [facility] [address] [id number] [address] [place] [address], [place] [address] Jul, [facility] [address] [id number] [address] [place] [address], [place] [address] 29 Jul, 2014 [facility] [address] [id number] [address] [place] [address], [place] [address] 24 Jul, 2014 [facility] [address] [id number] [address] [place] [address], [place] [address] 24 Jul, 2014 [facility] [address] [id number] [address] [place] [address], [place] [address] 15 Jul, 2014 [facility] [address] [id number] [address] [place] [address], [place] [address] 15 Jul, 2014 [facility] [address] [id number] [address] [place] [address] [place] [address] 27 Sep, 2013 [facility] [address] [id number] [facility] [place] [address] 27 Sep, 2013 [facility] [address] [id number] [facility] [place] [address] 26 Sep, 2013 [facility] [address] [id number] [address] [place] [address], [place] [address] 26 Sep, 2013 [facility] [address] [id number] [address] [place] [address], [place] [address] 26 Jun, 2013 [facility] [address] [id number] [address] [place] [address], [place] [address] 26 Jun, 2013 [facility] [address] [id number] [address] [place] [address], [place] [address] 16 Jun, 2013 [facility] [address] [id number] [address] [place] [address], [place] [address] 16 Jun, 2013 [facility] [address] [id number] [address] [place] [address], [place] [address] 16 Jun, 2013 [facility] [address] [id number] [address] [place] [address], [place] [address] 16 Jun, 2013 [facility] [address] [id number] [address] [place] [address], [place] [address] 04 Jun, 2013 [facility] [address] [id number] [address] [place] [address], [place] [address] May, 2013 [facility] [address] [id number] [address] [place] [address], [place] [address] May, [facility] [address] [id number] [address] [place] [address], [place] [address] May, 2013 [facility] [address] [id number] [address] [place] [address], [place] [address] May, 2013 [facility] [address] [id number] [address] [place] [address], [place] [address] May, 2013 [facility] [address] [id number] [facility] [address] May, [facility] [address] [id number] [facility] [place] [address] May, [facility] [address] [id number] [address] [place] [address], [place] [address] May, [facility] [address] [id number] [address] [place] [address], [place] [address] May, [facility] [address] [id number] [address] [place] [address], [place] [address] May, [facility] [address] [id number] [address] [place] [address], [place] [address] Apr, [facility] [address] [id number] [address] [place] [address], [place] [address] Apr, [facility] [address] [id number] [address] [place] [address], [place] [address] Apr, [facility] [address] [id number] [address] [place] [address], [place] [address] Apr, [facility] [address] [id number] [address] [place] [address], [place] [address] Apr, [facility] [address] [id number] [address] [place] [address], [place] [address] Apr, [facility] [address] [id number] [address] [place] [address], [place] [address] Apr, [facility] [address] [id number] [address] [place] [address], [place] [address] Apr, [facility] [address] [id number] [address] [place] [address], [place] [address] Apr, [facility] [address] [id number] [address] [place] [address], [place] [address] Apr, [facility] [address] [id number] [address] [place] [address], [place] [address] Mar, [facility] [address] [id number] [facility] [address] Mar, [facility] [address] [id number] [facility] [address] 25 Mar, 2014 [facility] [address] [id number] [facility] [place] [address] 24 Mar, 2014 [facility] [address] [id number] [address] [place] [address], [place] [address] 20 Mar, 2014 [facility] [address] [id number] [address] [place] [address], [place] [address] 18 Mar, 2014 [facility] [address] [id number] [address] [place] [address], [place] [address] 18 Mar, 2014 [facility] [address] [id number] [address] [place] [address], [place] [address] 16 Mar, 2014 [facility] [address] [id number] [address] [place] [address], [place] [address] 16 Mar, 2014 [facility] [address] [id number] [address] [place] [address], [place] [address] 13 Mar, 2014 [facility] [address] [id number] [address] [place] [address], [place] [address] 13 Mar, 2014 [facility] [address] [id number] [address] [place] [address], [place] [address] 11 Mar, 2014 [facility] [address] [id number] [address] [place] [address], [place] [address] 11 Mar, 2014 [facility] [address] [id number] [address] [place] [address], [place] [address] 10 Mar, 2014 [facility] [address] [id number] [address] [place] [address], [place] [address] 09 Mar, 2014 [facility] [address] [id number] [address] [place] [address], [place] [address] 09 Mar, 2014 [facility] [address] [id number] [facility] [address] Mar, [facility] [address] [id number] [address] [place] [address], [place] [address] Mar, [facility] [address] [id number] [address] [place] [address], [place] [address] Mar, [facility] [address] [id number] [address] [place] [address], [place] [address] Mar, [facility] [address] [id number] [address] [place] [address], [place] [address] February, [facility] [address] [id number] [address] [place] [address], [place] [address] February, [facility] [address] [id number] [address] [place] [address], [place] [address] February, [facility] [address] [id number] [address] [place] [address], [place] [address] February, [facility] [address] [id number] [address] [place] [address], [place] [address] February, [facility] [address] [id number] [address] [place] [address], [place] [address] February, [facility] [address] [id number] [address] [place] [address], [place] [address] February, [facility] [address] [id number] [address] [place] [address], [place] [address] February, [facility] [address] [id number] [address] [place] [address], [place] [address] February, [facility] [address] [id number] [address] [place] [address], [place] [address] February, [facility] [address] [id number] [address] [place] [address], [place] [address] February, [facility] [address] [id number] [address] [place] [address], [place] [address] February, [facility] [address] [id number] [address] [place] [address], [place] [address] February, [facility] [address] [id number] [address] [place] [address], [place] [address] February, [facility] [address] [id number] [address] [place] [address], [place] [address] February, [facility] [address] [id number] [address] [place] [address], [place] [address] February, [facility] [address] [id number] [address] [place] [address], [place] [address] February, [facility] [address] [id number] [address] [place] [address], [place] [address] February, [facility] [address] [id number] [address] [place] [address], [place] [address] February, [facility] [address] [id number] [address] [place] [address], [place] [address] February, [facility] [address] [id number] [address] [place] [address], [place] [address] February, [facility] [address] [id number] [address] [place] [address], [place] [address] Jan, [facility] [address] [id number] [address] [place] [address], [place] [address] Jan, [facility] [address] [id number] [address] [place] [address], [place] [address] Jan, [facility] [address] [id number] [address] [place] [address], [place] [address] Jan, [facility] [address] [id number] [address] [place] [address], [place] [address] Jan, [facility] [address] [id number] [address] [place] [address], [place] [address] Jan, [facility] [address] [id number] [address] [place] [address], [place] [address] 10 Jan, 2014 [facility] [address] [id number] [facility] [place] [address] 10 Jan, 2014 [facility] [address] [id number] [address] [place] [address], [place] [address] 21 Dec, 2013 [facility] [address] [id number] [address] [place] [address], [place] [address] 20 Dec, 2013 [facility] [address] [id number] [address] [place] [address], [place] [address] 20 Dec, 2013 [facility] [address] [id number] [address] [place] [address], [place] [address] 19 Dec, 2013 [facility] [address] [id number] [address] [place] [address], [place] [address] 19 Dec, 2013 [facility] [address] [id number] [address] [place] [address], [place] [address] 15 Dec, 2013 [facility] [address] [id number] [address] [place] [address], [place] [address] 15 Dec, 2013 [facility] [address] [id number] [address] [place] [address], [place] [address] 11 Dec, 2013 [facility] [address] [id number] [address] [place] [address], [place] [address] 10 Dec, 2013 [facility] [address] [id number] [address] [place] [address], [place] [address] 10 Dec, 2013 [facility] [address] [id number] [address] [place] [address], [place] [address] 18 Nov, 2013 [facility] [address] [id number] [address] [place] [address], [place] [address] 17 Nov, 2013 [facility] [address] [id number] [address] [place] [address], [place] [address] 17 Nov, 2013 [facility] [address] [id number] [address] [place] [address], [place] [address] 05 Nov, 2013 [facility] [address] [id number] [address] [place] [address], [place] [address] Nov, [facility] [address] [id number] [address] [place] [address], [place] [address] Oct, [facility] [address] [id number] [address] [place] [address], [place] [address] Oct, [facility] [address] [id number] [address] [place] [address], [place] [address] Oct, [facility] [address] [id number] [address] [place] [address], [place] [address] Sep, [facility] [address] [id number] [address] [place] [address], [place] [address] Sep, [facility] [address] [id number] [address] [place] [address], [place] [address] Sep, [facility] [address] [id number] [address] [place] [address], [place] [address] Sep, [facility] [address] [id number] [address] [place] [address], [place] [address] Aug, [facility] [address] [id number] [address] [place] [address], [place] [address] Aug, [facility] [address] [id number] [address] [place] [address], [place] [address] Jul, [facility] [address] [id number] [address] [place] [address], [place] [address] Jul, [facility] [address] [id number] [address] [place] [address], [place] [address] Jul, [facility] [address] [id number] [address] [place] [address], [place] [address] Jul, [facility] [address] [id number] [address] [place] [address], [place] [address] Jul, [facility] [address] [id number] [address] [place] [address], [place] [address] 25 Jun, 2013 [facility] [address] [id number] [address] [place] [address], [place] [address] 25 Jun, 2013 [facility] [address] [id number] [address] [place] [address], [place] [address] 19 Jun, 2013 [facility] [address] [id number] [address] [place] [address], [place] [address] 18 Jun, 2013 [facility] [address] [id number] [address] [place] [address], [place] [address] 16 Jun, 2013 [facility] [address] [id number] [address] [place] [address], [place] [address] 12 Jun, 2013 [facility] [address] [id number] [address] [place] [address], [place] [address] 11 Jun, 2013 [facility] [address] [id number] [address] [place] [address], [place] [address] May, [facility] [address] [id number] [address] [place] [address], [place] [address] May, [facility] [address] [id number] [address] [place] [address], [place] [address] Apr, [facility] [address] [id number] [address] [place] [address], [place] [address] Apr, [facility] [address] [id number] [address] [place] [address], [place] [address] Apr, [facility] [address] [id number] [address] [place] [address], [place] [address] Mar, [facility] [address] [id number] [address] [place] [address], [place] [address] Mar, [facility] [address] [id number] [address] [place] [address], [place] [address] February, [facility] [address] [id number] [address] [place] [address], [place] [address] February, [facility] [address] [id number] [address] [place] [address], [place] [address] February, [facility] [address] [id number] [address] [place] [address], [place] [address] February, [facility] [address] [id number] [address] [place] [address], [place] [address] Jan, [facility] [address] [id number] [address] [place] [address], [place] [address] Jan, [facility] [address] [id number] [address] [place] [address], [place] [address] 16 Jan, 2013 [facility] [address] [id number] [address] [place] [address], [place] [address] 29 Dec, 2012 [facility] [address] [id number] [address] [place] [address], [place] [address] Dec, [facility] [address] [id number] [address] [place] [address], [place] [address] Dec, [facility] [address] [id number] [address] [place] [address], [place] [address] 08 Dec, 2012 [facility] [address] [id number] [address] [place] [address], [place] [address] Nov, [facility] [address] [id number] [address] [place] [address], [place] [address] Nov, [facility] [address] [id number] [address] [place] [address], [place] [address] Oct, [facility] [address] [id number] [address] [place] [address], [place] [address] Oct, [facility] [address] [id number] [address] [place] [address], [place] [address] Oct, [facility] [address] [id number] [address] [place] [address], [place] [address] Oct, [facility] [address] [id number] [address] [place] [address], [place] [address] Aug, [facility] [address] [id number] [address] [place] [address], [place] [address] Aug, [facility] [address] [id number] [address] [place] [address], [place] [address] Jun, [facility] [address] [id number] [address] [place] [address], [place] [address] May, [facility] [address] [id number] [address] [place] [address], [place] [address] May, [facility] [address] [id number] [address] [place] [address], [place] [address] Apr, [facility] [address] [id number] [address] [place] [address], [place] [address] Apr, [facility] [address] [id number] [address] [place] [address], [place] [address] Apr, [facility] [address] [id number] [address] [place] [address], [place] [address] Mar, [facility] [address] [id number] [address] [place] [address], [place] [address] Mar, [facility] [address] [id number] [address] [place] [address], [place] [address] Mar, [facility] [address] [id number] [address] [place] [address], [place] [address] Mar, [facility] [address] [id number] [address] [place] [address], [place] [address] Mar, [facility] [address] [id number] [address] [place] [address], [place] [address] February, [facility] [address] [id number] [address] [place] [address], [place] [address] February, [facility] [address] [id number] [address] [place] [address], [place] [address] February, [facility] [address] [id number] [address] [place] [address] February, [facility] [address] [id number] [address] [place] [address], [place] [address] February, [facility] [address] [id number] [address] [place] [address], [place] [address] February, [facility] [address] [id number] [address] [place] [address], [place] [address] February, [facility] [address] [id number] [address] [place] [address], [place] [address] 25 Jan, 2012 [facility] [address] [id number] [address] [place] [address], [place] [address] 18 Jan, 2012 [facility] [address] [id number] [address] [place] [address], [place] [address] 17 Jan, 2012 [facility] [address] [id number] [address] [place] [address], [place] [address] Jan, [facility] [address] [id number] [address] [place] [address], [place] [address] Jan, [facility] [address] [id number] [address] [place] [address], [place] [address] 04 Jan, 2012 [facility] [address] [id number] [address] [place] [address], [place] [address] 30 Dec, 2011 [facility] [address] [id number] [address] [place] [address], [place] [address] 24 Dec, 2011 [facility] [address] [id number] [address] [place] [address], [place] [address] 20 Dec, 2011 [facility] [address] [id number] [address] [place] [address], [place] [address] 13 Dec, 2011 [facility] [address] [id number] [address] [place] [address], [place] [address] 06 Dec, 2011 [facility] [address] [id number] [address] [place] [address], [place] [address] 28 Nov, 2011 [facility] [address] [id number] [address] [place] [address], [place] [address] Nov, [facility] [address] [id number] [address] [place] [address], [place] [address] Nov, [facility] [address] [id number] [address] [place] [address], [place] [address] 14 Nov, 2011 [facility] [address] [id number] [address] [place] [address], [place] [address] Nov, [facility] [address] [id number] [address] [place] [address], [place] [address] Nov, [facility] [address] [id number] [address] [place] [address], [place] [address] Oct, [facility] [address] [id number] [address] [place] [address], [place] [address] Oct, [facility] [address] [id number] [address] [place] [address], [place] [address] Oct, [facility] [address] [id number] [address] [place] [address], [place] [address] Oct, [facility] [address] [id number] [address] [place] [address], [place] [address] Oct, [facility] [address] [id number] [address] [place] [address], [place] [address] Sep, [facility] [address] [id number] [address] [place] [address], [place] [address] Sep, [facility] [address] [id number] [address] [place] [address], [place] [address] Sep, [facility] [address] [id number] [address] [place] [address], [place] [address] Sep, [facility] [address] [id number] [address] [place] [address], [place] [address] Sep, [facility] [address] [id number] [address] [place] [address] Sep, [facility] [address] [id number] [address] [place] [address], [place] [address] Sep, [facility] [address] [id number] [address] [place] [address] Sep, [facility] [address] [id number] [address] [place] [address], [place] [address] Sep, [facility] [address] [id number] [address] [place] [address] Aug, [facility] [address] [id number] [address] [place] [address], [place] [address] Aug, [facility] [address] [id number] [address] [place] [address], [place] [address] Aug, [facility] [address] [id number] [address] [place] [address], [place] [address] Aug, [facility] [address] [id number] [address] [place] [address], [place] [address] Aug, [facility] [address] [id number] [address] [place] [address] Aug, [facility] [address] [id number] [address] [place] [address], [place] [address] Aug, [facility] [address] [id number] [address] [place] [address] Aug, [facility] [address] [id number] [address] [place] [address] Aug, [facility] [address] [id number] [address] [place] [address], [place] [address] Aug, [facility] [address] [id number] [address] [place] [address], [place] [address] Aug, [facility] [address] [id number] [address] [place] [address], [place] [address] Aug, [facility] [address] [id number] [address] [place] [address], [place] [address] Jul, [facility] [address] [id number] [address] [place] [address], [place] [address] Jul, [facility] [address] [id number] [address] [place] [address], [place] [address] Jul, [facility] [address] [id number] [address] [place] [address], [place] [address] Jul, [facility] [address] [id number] [address] [place] [address], [place] [address] Jul, [facility] [address] [id number] [address] [place] [address], [place] [address] Jul, [facility] [address] [id number] [address] [place] [address], [place] [address] Jul, [facility] [address] [id number] [address] [place] [address], [place] [address] Jul, [facility] [address] [id number] [address] [place] [address], [place] [address] Jul, [facility] [address] [id number] [address] [place] [address], [place] [address] Jul, [facility] [address] [id number] [address] [place] [address], [place] [address] Nov, [facility] [address] [id number] [address] [place] [address], [place] [address] Aug, [facility] [address] [id number] [address] [place] [address], [place] [address] Aug, [facility] [address] [id number] [address] [place] [address], [place] [address] Aug, [facility] [address] [id number] [address] [place] [address], [place] [address] Aug, [facility] [address] [id number] [address] [place] [address], [place] [address] Jul, IMMUNIZATIONS No Known Immunizations SOCIAL HISTORY Never Assessed REASON FOR VISIT EMR-[facility] PLAN OF CARE VITAL SIGNS MEDICATIONS Unknown [...] Suicide attempt by hanging 2015 Hospitalization History [facility] 01/30/2018-02/10/20 08 Hospitalization History [facility] 05/04/18-
--- OUTSIDE RECORDS SUMMARY | 2020-04-04 02:10 | XMS REPORT ---
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 Active 56199529 Problem Generalized anxiety disorder 300.02 A ctive 26641285 Problem Obsessive-compulsive disorders 300.3 Active 215078011 Problem Catatonic schizophrenia, 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 255771982 Problem Disorganized schizophrenia, 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 80160138 Problem Paranoid schizophrenia F20.0 Active 82315488 Problem Borderline personality disorder F60.3 Active 31072789 Problem Paranoid schizophrenia, unspecified condition 295.30 Active 05919130 Problem Schizoaffective disorder, depressive type F25.1 Active 44287098 Problem Bipolar disorder, unspecified 296.80 Active 22136155 Problem Schizoaffective disorder, unspecified F25.9 Active 06384462 Problem Attention deficit hyperactivity disorder (ADHD), inattentive type, 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 10779370 Problem Posttraumatic stress disorder F43.10 Active 19862821 Problem High risk medication use Z79.899 Activ e [id number] ALLERGIES No Information ENCOUNTERS Encounter Location Date Diagnosis [facility] [address] [id number] [address] [place] [phone] Mar, [facility] [address] [id number] [address] [place] [phone] Jan, Paranoid schizophrenia F20.0 ; Posttraumatic stress disorder F43.10 ; Attention deficit hyperactivity disorder (ADHD), inattentive type, 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 and Borderline personality disorder F60.3 [facility] [address] [id number] [address] [place] [phone] Dec, Paranoid schizophrenia F20.0 ; Posttraumatic stress disorder F43.10 ; Attention deficit hyperactivity disorder (ADHD), inattentive type, 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 and Borderline personality disorder F60.3 [facility] [address] [id number] [address] [place] [phone] Dec, Paranoid schizophrenia F20.0 ; Posttraumatic stress disorder F43.10 ; Attention deficit hyperactivity disorder (ADHD), inattentive type, 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 and Borderline personality disorder F60.3 [facility] [id number] [place] [phone] Oct, Paranoid schizophrenia F20.0 ; Posttraumatic stress disorder F43.10 ; Attention deficit hyperactivity disorder (ADHD), inattentive type, 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 and Borderline personality disorder F60.3 [facility] [address] [id number] [address] [place] [phone] Oct, Paranoid schizophrenia F20.0 ; Posttraumatic stress disorder F43.10 ; Attention deficit hyperactivity disorder (ADHD), inattentive type, 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 and Borderline personality disorder F60.3 [facility] [id number] [place] [phone] Aug, [facility] [id number] [place] [phone] Aug, Paranoid schizophrenia F20.0 ; Posttraumatic stress disorder F43.10 ; Attention deficit hyperactivity disorder (ADHD), inattentive type, 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 and Borderline personality disorder F60.3 [facility] [address] [id number] [address] [place] [phone] Jul, Dry skin dermatitis L85.3 [facility] [address] [id number] [address] [place] [phone] Jul, [facility] [address] [id number] [address] [place] [phone] Jul, Paranoid schizophrenia F20.0 [facility] [address] [id number] [address] [place] [phone] May, Paranoid schizophrenia F20.0 ; Posttraumatic stress disorder F43.10 ; Attention deficit hyperactivity disorder (ADHD), inattentive type, 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 and Borderline personality disorder F60.3 [facility] [address] [id number] [address] [place] [phone] May, [facility] [address] [id number] [address] [place] [phone] May, Paranoid schizophrenia F20.0 [facility] [address] [id number] [address] [place] [phone] May, Paranoid schizophrenia F20.0 ; Posttraumatic stress disorder F43.10 ; Attention deficit hyperactivity disorder (ADHD), inattentive type, 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 and Borderline personality disorder F60.3 [facility] [address] [id number] [address] [place] [phone] Apr, [facility] [address] [id number] [address] [place] [phone] Apr, Paranoid schizophrenia F20.0 ; Posttraumatic stress disorder F43.10 ; Attention deficit hyperactivity disorder (ADHD), inattentive type, 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 and Borderline personality disorder F60.3 [facility] [address] [id number] [address] [place] [phone] Apr, [facility] [address] [id number] [address] [place] [phone] Apr, Schizoaffective disorder, de pressive type F25.1 and Borderline personality disorder F60.3 [facility] [address] [id number] [address] [place] [phone] Apr, Paranoid schizophrenia F20.0 ; Posttraumatic stress disorder F43.10 ; Attention deficit hyperactivity disorder (ADHD), inattentive type, 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 and Borderline personality disorder F60.3 [facility] [address] [id number] [address] [place] [phone] Apr, [facility] [address] [id number] [address] [place] [phone] Apr, Paranoid schizophrenia F20.0 ; Posttraumatic stress disorder F43.10 ; Attention deficit hyperactivity disorder (ADHD), inattentive type, 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 and Borderline personality disorder F60.3 [facility] [address] [id number] [address] [place] [phone] Apr, [facility] [address] [id number] [address] [place] [phone] Mar, Paranoid schizophrenia F20.0 [facility] [address] [id number] [address] [place] [phone] Mar, [facility] [address] [id number] [address] [place] [phone] Mar, Paranoid schizophrenia F20.0 ; Posttraumatic stress disorder F43.10 ; Attention deficit hyperactivity disorder (ADHD), inattentive type, 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 and Borderline personality disorder F60.3 [facility] [address] [id number] [address] [place] [phone] February, Paranoid schizophrenia F20.0 [facility] [address] [id number] [address] [place] [phone] February, Paranoid schizophrenia F20.0 ; Posttraumatic stress disorder F43.10 ; Attention deficit hyperactivity disorder (ADHD), inattentive type, 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 and Borderline personality disorder F60.3 [facility] [address] [id number] [address] [place] [phone] February, Paranoid schizophrenia F20.0 ; Posttraumatic stress disorder F43.10 ; Attention deficit hyperactivity disorder (ADHD), inattentive type, 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 and Borderline personality disorder F60.3 [facility] [address] [id number] [address] [place] [phone] February, [facility] [address] [id number] [address] [place] [phone] February, Paranoid schizophrenia F20.0 [facility] [address] [id number] [address] [place] [phone] February, Paranoid schizophrenia F20.0 [facility] [address] [id number] [address] [place] [phone] February, Paranoid schizophrenia F20.0 ; Posttraumatic stress disorder F43.10 ; Attention deficit hyperactivity disorder (ADHD), inattentive type, 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 and Borderline personality disorder F60.3 [facility] [address] [id number] [address] [place] [phone] Jan, Paranoid schizophrenia F20.0 ; Posttraumatic stress disorder F43.10 ; Attention deficit hyperactivity disorder (ADHD), inattentive type, 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 and Borderline personality disorder F60.3 [facility] [address] [id number] [address] [place] [phone] Jan, Paranoid schizophrenia F20.0 [facility] [address] [id number] [address] [place] [phone] Jan, Paranoid schizophrenia F20.0 [facility] [address] [id number] [address] [place] [phone] Jan, Paranoid schizophrenia F20.0 ; Posttraumatic stress disorder F43.10 ; Attention deficit hyperactivity disorder (ADHD), inattentive type, 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 and Borderline personality disorder F60.3 [facility] [address] [id number] [address] [place] [phone] Dec, [facility] [address] [id number] [address] [place] [phone] Nov, Paranoid schizophrenia F20.0 ; Posttraumatic stress disorder F43.10 ; Attention deficit hyperactivity disorder (ADHD), inattentive type, 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 and Borderline personality disorder F60.3 [facility] [address] [id number] [address] [place] [phone] Nov, [facility] [address] [id number] [address] [place] [phone] Oct, Paranoid schizophrenia F20.0 [facility] [address] [id number] [address] [place] [phone] Oct, Paranoid schizophrenia F20.0 ; Posttraumatic stress disorder F43.10 ; Attention deficit hyperactivity disorder (ADHD), inattentive type, 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 ; Borderline personality disorder F60.3 and 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 [facility] [address] [id number] [address] [place] [phone] Oct, [facility] [address] [id number] [address] [place] [phone] Oct, [facility] [address] [id number] [address] [place] [address], [place] [address] Sep, [facility] [address] [id number] [address] [place] [phone] Sep, Paranoid schizophrenia F20.0 ; Posttraumatic stress disorder F43.10 ; Attention deficit hyperactivity disorder (ADHD), inattentive type, 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 and Borderline personality disorder F60.3 [facility] [address] [id number] [address] [place] [phone] Sep, Paranoid schizophrenia F20.0 [facility] [address] [id number] [address] [place] [phone] Aug, Paranoid schizophrenia F20.0 ; Posttraumatic stress disorder F43.10 ; Attention deficit hyperactivity disorder (ADHD), inattentive type, 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 and Borderline personality disorder F60.3 [facility] [address] [id number] [address] [place] [phone] Aug, Paranoid schizophrenia F20.0 ; Posttraumatic stress disorder F43.10 ; Attention deficit hyperactivity disorder (ADHD), inattentive type, 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 and Borderline personality disorder F60.3 [facility] [address] [id number] [address] [place] [phone] 09 Aug, 2017 [facility] [address] [id number] [address] [place] [phone] Jul, Paranoid schizophrenia F20.0 ; Posttraumatic stress disorder F43.10 ; Attention deficit hyperactivity disorder (ADHD), inattentive type, 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 and Borderline personality disorder F60.3 [facility] [address] [id number] [address] [place] [phone] Jul, Paranoid schizophrenia F20.0 [facility] [address] [id number] [address] [place] [phone] Jul, Paranoid schizophrenia F20.0 ; Posttraumatic stress disorder F43.10 ; Attention deficit hyperactivity disorder (ADHD), inattentive type, 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 and Borderline personality disorder F60.3 [facility] [address] [id number] [address] [place] [phone] Jun, Paranoid schizophrenia F20.0 ; Posttraumatic stress disorder F43.10 ; Attention deficit hyperactivity disorder (ADHD), inattentive type, 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 and Borderline personality disorder F60.3 [facility] [address] [id number] [address] [place] [phone] May, 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 Z79.899 [facility] [address] [id number] [address] [place] [phone] May, [facility] [address] [id number] [address] [place] [phone] May, [facility] [address] [id number] [address] [place] [phone] May, Attention deficit hyperactiv ity disorder (ADHD), inattentive type, mild F90.0 [facility] [address] [id number] [address] [place] [phone] May, [facility] [address] [id number] [address] [place] [phone] May, Attention deficit hyperactiv ity disorder (ADHD), inattentive type, mild F90.0 [facility] [address] [id number] [address] [place] [phone] May, Paranoid schizophrenia F20.0 ; Posttraumatic stress disorder F43.10 ; Attention deficit hyperactivity disorder (ADHD), inattentive type, 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 and Other group home (current) drug therapy Z79.899 [facility] [address] [id number] [address] [place] [phone] Apr, Paranoid schizophrenia F20.0 [facility] [address] [id number] [address] [place] [phone] Apr, Paranoid schizophrenia F20.0 ; Posttraumatic stress disorder F43.10 and Attention deficit hyperactivity disorder (ADHD), inattentive type, 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 [facility] [address] [id number] [address] [place] [phone] February, [facility] [address] [id number] [address] [place] [phone] February, Paranoid schizophrenia F20.0 ; Posttraumatic stress disorder F43.10 and Attention deficit hyperactivity disorder (ADHD), inattentive type, 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 [facility] [address] [id number] [address] [place] [phone] February, Paranoid schizophrenia F20.0 ; Posttraumatic stress disorder F43.10 and Attention deficit hyperactivity disorder (ADHD), inattentive type, 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 [facility] [address] [id number] [address] [place] [phone] Jan, Paranoid schizophrenia F20.0 ; Posttraumatic stress disorder F43.10 and Attention deficit hyperactivity disorder (ADHD), inattentive type, 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 [facility] [address] [id number] [address] [place] [id number] Dec, Dental examination Z01.20 [facility] [address] [id number] [address] [place] [phone] Nov, Dental examination Z01.20 [facility] [address] [id number] [address] [place] [address] [id number] 23 Feb, 2017 Dental examination Z01.20 [facility] [address] [id number] [address] [place] [address] [id number] 14 Nov, 2016 Dental caries K02.9 [facility] [address] [id number] [address] [place] [phone] 13 Nov, 2016 High risk medication use Z79 .899 [facility] [address] [id number] [address] [place] [phone] 01 Nov, 2016 Paranoid schizophrenia F20.0 ; Posttraumatic stress disorder F43.10 ; Attention deficit hyperactivity disorder (ADHD), inattentive type, 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 and Borderline personality disorder in adult F60.3 [facility] [address] [id number] [address] [place] [address] [id number] Oct, Dental caries K02.9 [facility] [address] [id number] [address] [place] [phone] Sep, Paranoid schizophrenia F20.0 ; Posttraumatic stress disorder F43.10 and Attention deficit hyperactivity disorder (ADHD), inattentive type, 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 [facility] [address] [id number] [address] [place] [phone] Aug, Paranoid schizophrenia F20.0 ; Posttraumatic stress disorder F43.10 and Attention deficit hyperactivity disorder (ADHD), inattentive type, 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 [facility] [address] [id number] [address] [place] [phone] Aug, Strep throat J02.0 and Cough R05 [facility] [address] [id number] [address] [place] [phone] Aug, [facility] [address] [id number] [address] [place] [phone] Jul, Paranoid schizophrenia F20.0 ; Posttraumatic stress disorder F43.10 and Attention deficit hyperactivity disorder (ADHD), inattentive type, 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 [facility] [address] [id number] [address] [place] [phone] Jul, [facility] [address] [id number] [address] [place] [phone] Jun, Paranoid schizophrenia F20.0 ; Posttraumatic stress disorder F43.10 and Attention deficit hyperactivity disorder (ADHD), inattentive type, 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 [facility] [address] [id number] [address] [place] [address] [id number] Jun, Dental examination Z01.20 [facility] [address] [id number] [address] [place] [phone] Jun, [facility] [address] [id number] [address] [place] [phone] May, Paranoid schizophrenia F20.0 [facility] [address] [id number] [address] [place] [phone] May, Paranoid schizophrenia F20.0 ; Posttraumatic stress disorder F43.10 and Attention deficit hyperactivity disorder (ADHD), inattentive type, 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 [facility] [address] [id number] [address] [place] [phone] May, [facility] [address] [id number] [address] [place] [phone] May, Paranoid schizophrenia F20.0 [facility] [address] [id number] [address] [place] [phone] May, [facility] [address] [id number] [address] [place] [phone] May, Paranoid schizophrenia F20.0 [facility] [address] [id number] [address] [place] [phone] May, Schizoaffective disorder, un specified F25.9 [facility] [address] [id number] [address] [place] [phone] May, Schizoaffective disorder, un specified F25.9 [facility] [address] [id number] [address] [place] [phone] May, [facility] [address] [id number] [place] [address] May, Paranoid schizophrenia F20.0 [facility] [address] [id number] [address] [place] [address], [place] [address] May, Paranoid schizophrenia F20.0 ; Posttraumatic stress disorder F43.10 and Attention deficit hyperactivity disorder (ADHD), inattentive type, 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 [facility] [address] [id number] [address] [place] [phone] Mar, [facility] [address] [id number] [address] [place] [address], [place] [address] Mar, Paranoid schizophrenia F20.0 ; Posttraumatic stress disorder F43.10 and Attention deficit hyperactivity disorder (ADHD), inattentive type, 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 [facility] [address] [id number] [address] [place] [address], [place] [address] Mar, Paranoid schizophrenia F20.0 [facility] [address] [id number] [address] [place] [address], [place] [address] Mar, Paranoid schizophrenia F20.0 ; Attention deficit hyperactivity disorder (ADHD), inattentive type, 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 and Posttraumatic stress disorder F43.10 [facility] [address] [id number] [address] [place] [address], [place] [address] Mar, [facility] [address] [id number] [address] [place] [phone] Mar, Paranoid schizophrenia F20.0 ; Posttraumatic stress disorder F43.10 and Attention deficit hyperactivity disorder (ADHD), inattentive type, 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 [facility] [address] [id number] [address] [place] [address], [place] [address] February, [facility] [address] [id number] [address] [place] [address], [place] [address] February, [facility] [address] [id number] [address] [place] [phone] February, [facility] [address] [id number] [address] [place] [phone] February, [facility] [address] [id number] [address] [place] [phone] Jan, Paranoid schizophrenia F20.0 [facility] [address] [id number] [address] [place] [address] [id number] Jan, Dental examination Z01.20 [facility] [address] [id number] [address] [place] [address] [id number] Jan, Dental caries K02.9 [facility] [address] [id number] [address] [place] [address] [id number] Jan, Dental examination Z01.20 [facility] [address] [id number] [address] [place] [address] [id number] Dec, Encounter for dental examina tion Z01.20 [facility] [address] [id number] [address] [place] [phone] Dec, Paranoid schizophrenia F20.0 [facility] [address] [id number] [address] [place] [address] [id number] Dec, Dental examination Z01.20 [facility] [facility] [address] [id number] [address] [place] [address] Dec, [facility] [address] [id number] [address] [place] [address] Dec, Paranoid schizophrenia F20.0 ; Posttraumatic stress disorder F43.10 and Attention deficit hyperactivity disorder (ADHD), inattentive type, 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 [facility] [address] [id number] [address] [place] [address] Nov, Schizoaffective disorder, un specified F25.9 [facility] [address] [id number] [address] [place] [address] Oct, Paranoid schizophrenia F20.0 [facility] [address] [id number] [address] [place] [address] Oct, [facility] [address] [facility] [id number] [address] [place] [address] Sep, Paranoid schizophrenia F20.0 ; Posttraumatic stress disorder F43.10 and Attention deficit hyperactivity disorder (ADHD), inattentive type, 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 [facility] [address] [id number] [address] [place] [address] Sep, [facility] [address] [id number] [address] [place] [address] Sep, Paranoid schizophrenia F20.0 ; Posttraumatic stress disorder F43.10 and Attention deficit hyperactivity disorder (ADHD), inattentive type, 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 [facility] [address] [id number] [address] [place] [address] Aug, Paranoid schizophrenia F20.0 [facility] [address] [facility] [id number] [address] [place] [address] Aug, [facility] [address] [facility] [id number] [address] [place] [address] Aug, Posttraumatic stress disorde r F43.10 ; Paranoid schizophrenia F20.0 and Attention deficit hyperactivity disorder (ADHD), inattentive type, 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 [facility] [address] [facility] [id number] [address] [place] [address] Jul, Bipolar disorder, unspecifie d F31.9 [facility] [address] [facility] [id number] [address] [place] [address] Jul, [facility] [address] [facility] [id number] [address] [place] [address] Jun, [facility] [address] [facility] [id number] [address] [place] [address] Jun, Schizoaffective disorder, ch ronic 295.72 ; Posttraumatic stress disorder 309.81 and Attention deficit disorder of childhood without mention of hyperactivity 314.00 [facility] [address] [facility] [id number] [address] [place] [address] May, [facility] [address] [id number] [address] [place] [address] May, [facility] [address] [id number] [address] [place] [address] May, Schizoaffective disorder, ch ronic 295.72 ; Posttraumatic stress disorder 309.81 ; Attention deficit disorder of childhood without mention of hyperactivity 314.00 and Bipolar disorder, unspecified 296.80 [facility] [address] [id number] [address] [place] [address] Apr, Schizoaffective disorder, ch ronic 295.72 [facility] [address] [id number] [address] [place] [address] Apr, [facility] [address] [id number] [address] [place] [address] Apr, Schizoaffective disorder, ch ronic 295.72 ; Posttraumatic stress disorder 309.81 and Attention deficit disorder of childhood without mention of hyperactivity 314.00 [facility] [address] [id number] [address] [place] [address] Mar, Disorganized schizophrenia, 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 [facility] [address] [id number] [address] [place] [address] Mar, [facility] [address] [id number] [address] [place] [address] Mar, [facility] [address] [facility] [id number] [address] [place] [address] Mar, [facility] [address] [id number] [address] [place] [address] Mar, [facility] [address] [facility] [id number] [address] [place] [address] February, Schizoaffective disorder, ch ronic 295.72 [facility] [address] [facility] [id number] [address] [place] [address] February, [facility] [address] [id number] [address] [place] [address] February, Attention 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 ; Posttraumatic stress disorder 309.81 and Schizoaffective disorder, chronic 295.72 [facility] [address] [id number] [address] [place] [address] Jan, [facility] [address] [id number] [address] [place] [id number] Jan, [facility] [address] [id number] [address] [place] [address] Jan, [facility] [address] [id number] [address] [place] [address] Dec, [facility] [address] [id number] [address] [place] [address] Dec, [facility] [address] [id number] [address] [place] [address] Dec, [facility] [address] [id number] [address] [place] [address] Dec, [facility] [address] [id number] [address] [place] [id number] Dec, [facility] [address] [id number] [address] [place] [id number] Dec, [facility] [address] [id number] [address] [place] [address] Dec, [facility] [address] [id number] [address] [place] [address] Dec, [facility] [address] [id number] [address] [place] [address] Nov, [facility] [address] [id number] [address] [place] [id number] Nov, [facility] [address] [id number] [address] [place] [address] [place] [address] Nov, 2014 [facility] [address] [id number] [address] [place] [address], [place] [address] Nov, 2014 [facility] [address] [id number] [address] [place] [address], [place] [address] Nov, 2014 [facility] [address] [id number] [address] [place] [address], [place] [address] Nov, 2014 [facility] [address] [id number] [address] [place] [address], [place] [address] Nov, 2014 [facility] [address] [id number] [address] [place] [address], [place] [address] Nov, 2014 [facility] [address] [id number] [address] [place] [address], [place] [address] Nov, [facility] [address] [id number] [address] [place] [address], [place] [address] Nov, [facility] [address] [id number] [address] [place] [address], [place] [address] Oct, [facility] [address] [id number] [address] [place] [address], [place] [address] Oct, [facility] [address] [id number] [address] [place] [id number] Oct, [facility] [address] [id number] [address] [place] [address], [place] [address] Oct, [facility] [address] [id number] [address] [place] [id number] Oct, [facility] [address] [id number] [address] [place] [address], [place] [address] Oct, [facility] [address] [id number] [address] [place] [address], [place] [address] Oct, [facility] [address] [id number] [address] [place] [address], [place] [address] Sep, [facility] [address] [id number] [address] [place] [address], [place] [address] 17 Sep, 2014 [facility] [address] [id number] [address] [place] [address], [place] [address] 15 Sep, 2014 [facility] [address] [id number] [address] [place] [address], [place] [address] 15 Sep, 2014 [facility] [address] [id number] [address] [place] [address], [place] [address] Aug, [facility] [address] [id number] [address] [place] [address], [place] [address] Aug, [facility] [address] [id number] [address] [place] [address], [place] [address] Aug, [facility] [address] [id number] [address] [place] [address], [place] [address] Aug, [facility] [address] [id number] [address] [place] [address], [place] [address] Aug, [facility] [address] [id number] [address] [place] [address], [place] [address] Aug, [facility] [address] [id number] [address] [place] [address], [place] [address] Jul, [facility] [address] [id number] [address] [place] [address], [place] [address] 29 Jul, 2014 [facility] [address] [id number] [address] [place] [address], [place] [address] 24 Jul, 2014 [facility] [address] [id number] [address] [place] [address], [place] [address] 24 Jul, 2014 [facility] [address] [id number] [address] [place] [address], [place] [address] 15 Jul, 2014 [facility] [address] [id number] [address] [place] [address], [place] [address] 15 Jul, 2014 [facility] [address] [id number] [address] [place] [address] [place] [address] 27 Sep, 2013 [facility] [address] [id number] [facility] [place] [address] 27 Sep, 2013 [facility] [address] [id number] [facility] [place] [address] 26 Sep, 2013 [facility] [address] [id number] [address] [place] [address], [place] [address] 26 Sep, 2013 [facility] [address] [id number] [address] [place] [address], [place] [address] 26 Jun, 2013 [facility] [address] [id number] [address] [place] [address], [place] [address] 26 Jun, 2013 [facility] [address] [id number] [address] [place] [address], [place] [address] 16 Jun, 2013 [facility] [address] [id number] [address] [place] [address], [place] [address] 16 Jun, 2013 [facility] [address] [id number] [address] [place] [address], [place] [address] 16 Jun, 2013 [facility] [address] [id number] [address] [place] [address], [place] [address] 16 Jun, 2013 [facility] [address] [id number] [address] [place] [address], [place] [address] 04 Jun, 2013 [facility] [address] [id number] [address] [place] [address], [place] [address] May, 2013 [facility] [address] [id number] [address] [place] [address], [place] [address] May, [facility] [address] [id number] [address] [place] [address], [place] [address] May, 2013 [facility] [address] [id number] [address] [place] [address], [place] [address] May, 2013 [facility] [address] [id number] [address] [place] [address], [place] [address] May, 2013 [facility] [address] [id number] [facility] [place] [address] May, [facility] [address] [id number] [facility] [place] [address] May, [facility] [address] [id number] [address] [place] [address], [place] [address] May, [facility] [address] [id number] [address] [place] [address], [place] [address] May, [facility] [address] [id number] [address] [place] [address], [place] [address] May, [facility] [address] [id number] [address] [place] [address], [place] [address] Apr, [facility] [address] [id number] [address] [place] [address], [place] [address] Apr, [facility] [address] [id number] [address] [place] [address], [place] [address] Apr, [facility] [address] [id number] [address] [place] [address], [place] [address] Apr, [facility] [address] [id number] [address] [place] [address], [place] [address] Apr, [facility] [address] [id number] [address] [place] [address], [place] [address] Apr, [facility] [address] [id number] [address] [place] [address], [place] [address] Apr, [facility] [address] [id number] [address] [place] [address], [place] [address] Apr, [facility] [address] [id number] [address] [place] [address], [place] [address] Apr, [facility] [address] [id number] [address] [place] [address], [place] [address] Apr, [facility] [address] [id number] [address] [place] [address], [place] [address] Mar, [facility] [address] [id number] [facility] [place] [address] Mar, [facility] [address] [id number] [facility] [place] [address] 25 Mar, 2014 [facility] [address] [id number] [facility] [place] [address] 24 Mar, 2014 [facility] [address] [id number] [address] [place] [address], [place] [address] 20 Mar, 2014 [facility] [address] [id number] [address] [place] [address], [place] [address] 18 Mar, 2014 [facility] [address] [id number] [address] [place] [address], [place] [address] 18 Mar, 2014 [facility] [address] [id number] [address] [place] [address], [place] [address] 16 Mar, 2014 [facility] [address] [id number] [address] [place] [address], [place] [address] 16 Mar, 2014 [facility] [address] [id number] [address] [place] [address], [place] [address] 13 Mar, 2014 [facility] [address] [id number] [address] [place] [address], [place] [address] 13 Mar, 2014 [facility] [address] [id number] [address] [place] [address], [place] [address] 11 Mar, 2014 [facility] [address] [id number] [address] [place] [address], [place] [address] 11 Mar, 2014 [facility] [address] [id number] [address] [place] [address], [place] [address] 10 Mar, 2014 [facility] [address] [id number] [address] [place] [address], [place] [address] 09 Mar, 2014 [facility] [address] [id number] [address] [place] [address], [place] [address] 09 Mar, 2014 [facility] [address] [id number] [facility] [place] [address] Mar, [facility] [address] [id number] [address] [place] [address], [place] [address] Mar, [facility] [address] [id number] [address] [place] [address], [place] [address] Mar, [facility] [address] [id number] [address] [place] [address], [place] [address] Mar, [facility] [address] [id number] [address] [place] [address], [place] [address] February, [facility] [address] [id number] [address] [place] [address], [place] [address] February, [facility] [address] [id number] [address] [place] [address], [place] [address] February, [facility] [address] [id number] [address] [place] [address], [place] [address] February, [facility] [address] [id number] [address] [place] [address], [place] [address] February, [facility] [address] [id number] [address] [place] [address], [place] [address] February, [facility] [address] [id number] [address] [place] [address], [place] [address] February, [facility] [address] [id number] [address] [place] [address], [place] [address] February, [facility] [address] [id number] [address] [place] [address], [place] [address] February, [facility] [address] [id number] [address] [place] [address], [place] [address] February, [facility] [address] [id number] [address] [place] [address], [place] [address] February, [facility] [address] [id number] [address] [place] [address], [place] [address] February, [facility] [address] [id number] [address] [place] [address], [place] [address] February, [facility] [address] [id number] [address] [place] [address], [place] [address] February, [facility] [address] [id number] [address] [place] [address], [place] [address] February, [facility] [address] [id number] [address] [place] [address], [place] [address] February, [facility] [address] [id number] [address] [place] [address], [place] [address] February, [facility] [address] [id number] [address] [place] [address], [place] [address] February, [facility] [address] [id number] [address] [place] [address], [place] [address] February, [facility] [address] [id number] [address] [place] [address], [place] [address] February, [facility] [address] [id number] [address] [place] [address], [place] [address] February, [facility] [address] [id number] [address] [place] [address], [place] [address] Jan, [facility] [address] [id number] [address] [place] [address], [place] [address] Jan, [facility] [address] [id number] [address] [place] [address], [place] [address] Jan, [facility] [address] [id number] [address] [place] [address], [place] [address] Jan, [facility] [address] [id number] [address] [place] [address], [place] [address] Jan, [facility] [address] [id number] [address] [place] [address], [place] [address] Jan, [facility] [address] [id number] [address] [place] [address], [place] [address] 10 Jan, 2014 [facility] [address] [id number] [facility] [place] [address] 10 Jan, 2014 [facility] [address] [id number] [address] [place] [address], [place] [address] 21 Dec, 2013 [facility] [address] [id number] [address] [place] [address], [place] [address] 20 Dec, 2013 [facility] [address] [id number] [address] [place] [address], [place] [address] 20 Dec, 2013 [facility] [address] [id number] [address] [place] [address], [place] [address] 19 Dec, 2013 [facility] [address] [id number] [address] [place] [address], [place] [address] 19 Dec, 2013 [facility] [address] [id number] [address] [place] [address], [place] [address] 15 Dec, 2013 [facility] [address] [id number] [address] [place] [address], [place] [address] 15 Dec, 2013 [facility] [address] [id number] [address] [place] [address], [place] [address] 11 Dec, 2013 [facility] [address] [id number] [address] [place] [address], [place] [address] 10 Dec, 2013 [facility] [address] [id number] [address] [place] [address], [place] [address] 10 Dec, 2013 [facility] [address] [id number] [address] [place] [address], [place] [address] 18 Nov, 2013 [facility] [address] [id number] [address] [place] [address], [place] [address] 17 Nov, 2013 [facility] [address] [id number] [address] [place] [address], [place] [address] 17 Nov, 2013 [facility] [address] [id number] [address] [place] [address], [place] [address] 05 Nov, 2013 [facility] [address] [id number] [address] [place] [address], [place] [address] Nov, [facility] [address] [id number] [address] [place] [address], [place] [address] Oct, [facility] [address] [id number] [address] [place] [address], [place] [address] Oct, [facility] [address] [id number] [address] [place] [address], [place] [address] Oct, [facility] [address] [id number] [address] [place] [address], [place] [address] Sep, [facility] [address] [id number] [address] [place] [address], [place] [address] Sep, [facility] [address] [id number] [address] [place] [address], [place] [address] Sep, [facility] [address] [id number] [address] [place] [address], [place] [address] Sep, [facility] [address] [id number] [address] [place] [address], [place] [address] Aug, [facility] [address] [id number] [address] [place] [address], [place] [address] Aug, [facility] [address] [id number] [address] [place] [address], [place] [address] Jul, [facility] [address] [id number] [address] [place] [address], [place] [address] Jul, [facility] [address] [id number] [address] [place] [address], [place] [address] Jul, [facility] [address] [id number] [address] [place] [address], [place] [address] Jul, [facility] [address] [id number] [address] [place] [address], [place] [address] Jul, [facility] [address] [id number] [address] [place] [address], [place] [address] 25 Jun, 2013 [facility] [address] [id number] [address] [place] [address], [place] [address] 25 Jun, 2013 [facility] [address] [id number] [address] [place] [address], [place] [address] 19 Jun, 2013 [facility] [address] [id number] [address] [place] [address], [place] [address] 18 Jun, 2013 [facility] [address] [id number] [address] [place] [address], [place] [address] 16 Jun, 2013 [facility] [address] [id number] [address] [place] [address], [place] [address] 12 Jun, 2013 [facility] [address] [id number] [address] [place] [address], [place] [address] 11 Jun, 2013 [facility] [address] [id number] [address] [place] [address], [place] [address] May, [facility] [address] [id number] [address] [place] [address], [place] [address] May, [facility] [address] [id number] [address] [place] [address], [place] [address] Apr, [facility] [address] [id number] [address] [place] [address], [place] [address] Apr, [facility] [address] [id number] [address] [place] [address], [place] [address] Apr, [facility] [address] [id number] [address] [place] [address], [place] [address] Mar, [facility] [address] [id number] [address] [place] [address], [place] [address] Mar, [facility] [address] [id number] [address] [place] [address], [place] [address] February, [facility] [address] [id number] [address] [place] [address], [place] [address] February, [facility] [address] [id number] [address] [place] [address], [place] [address] February, [facility] [address] [id number] [address] [place] [address], [place] [address] February, [facility] [address] [id number] [address] [place] [address], [place] [address] Jan, [facility] [address] [id number] [address] [place] [address], [place] [address] Jan, [facility] [address] [id number] [address] [place] [address], [place] [address] 16 Jan, 2013 [facility] [address] [id number] [address] [place] [address], [place] [address] 29 Dec, 2012 [facility] [address] [id number] [address] [place] [address], [place] [address] Dec, [facility] [address] [id number] [address] [place] [address], [place] [address] Dec, [facility] [address] [id number] [address] [place] [address], [place] [address] 08 Dec, 2012 [facility] [address] [id number] [address] [place] [address], [place] [address] Nov, [facility] [address] [id number] [address] [place] [address], [place] [address] Nov, [facility] [address] [id number] [address] [place] [address], [place] [address] Oct, [facility] [address] [id number] [address] [place] [address], [place] [address] Oct, [facility] [address] [id number] [address] [place] [address], [place] [address] Oct, [facility] [address] [id number] [address] [place] [address], [place] [address] Oct, [facility] [address] [id number] [address] [place] [address], [place] [address] Aug, [facility] [address] [id number] [address] [place] [address], [place] [address] Aug, [facility] [address] [id number] [address] [place] [address], [place] [address] Jun, [facility] [address] [id number] [address] [place] [address], [place] [address] May, [facility] [address] [id number] [address] [place] [address], [place] [address] May, [facility] [address] [id number] [address] [place] [address], [place] [address] Apr, [facility] [address] [id number] [address] [place] [address], [place] [address] Apr, [facility] [address] [id number] [address] [place] [address], [place] [address] Apr, [facility] [address] [id number] [address] [place] [address], [place] [address] Mar, [facility] [address] [id number] [address] [place] [address], [place] [address] Mar, [facility] [address] [id number] [address] [place] [address], [place] [address] Mar, [facility] [address] [id number] [address] [place] [address], [place] [address] Mar, [facility] [address] [id number] [address] [place] [address], [place] [address] Mar, [facility] [address] [id number] [address] [place] [address], [place] [address] February, [facility] [address] [id number] [address] [place] [address], [place] [address] February, [facility] [address] [id number] [address] [place] [address], [place] [address] February, [facility] [address] [id number] [address] [place] [address] February, [facility] [address] [id number] [address] [place] [address], [place] [address] February, [facility] [address] [id number] [address] [place] [address], [place] [address] February, [facility] [address] [id number] [address] [place] [address], [place] [address] February, [facility] [address] [id number] [address] [place] [address], [place] [address] 25 Jan, 2012 [facility] [address] [id number] [address] [place] [address], [place] [address] 18 Jan, 2012 [facility] [address] [id number] [address] [place] [address], [place] [address] 17 Jan, 2012 [facility] [address] [id number] [address] [place] [address], [place] [address] Jan, [facility] [address] [id number] [address] [place] [address], [place] [address] Jan, [facility] [address] [id number] [address] [place] [address], [place] [address] 04 Jan, 2012 [facility] [address] [id number] [address] [place] [address], [place] [address] 30 Dec, 2011 [facility] [address] [id number] [address] [place] [address], [place] [address] 24 Dec, 2011 [facility] [address] [id number] [address] [place] [address], [place] [address] 20 Dec, 2011 [facility] [address] [id number] [address] [place] [address], [place] [address] 13 Dec, 2011 [facility] [address] [id number] [address] [place] [address], [place] [address] 06 Dec, 2011 [facility] [address] [id number] [address] [place] [address], [place] [address] 28 Nov, 2011 [facility] [address] [id number] [address] [place] [address], [place] [address] Nov, [facility] [address] [id number] [address] [place] [address], [place] [address] Nov, [facility] [address] [id number] [address] [place] [address], [place] [address] 14 Nov, 2011 [facility] [address] [id number] [address] [place] [address], [place] [address] Nov, [facility] [address] [id number] [address] [place] [address], [place] [address] Nov, [facility] [address] [id number] [address] [place] [address], [place] [address] Oct, [facility] [address] [id number] [address] [place] [address], [place] [address] Oct, [facility] [address] [id number] [address] [place] [address], [place] [address] Oct, [facility] [address] [id number] [address] [place] [address], [place] [address] Oct, [facility] [address] [id number] [address] [place] [address], [place] [address] Oct, [facility] [address] [id number] [address] [place] [address], [place] [address] Sep, [facility] [address] [id number] [address] [place] [address], [place] [address] Sep, [facility] [address] [id number] [address] [place] [address], [place] [address] Sep, [facility] [address] [id number] [address] [place] [address], [place] [address] Sep, [facility] [address] [id number] [address] [place] [address], [place] [address] Sep, [facility] [address] [id number] [address] [place] [address] Sep, [facility] [address] [id number] [address] [place] [address], [place] [address] Sep, [facility] [address] [id number] [address] [place] [address] Sep, [facility] [address] [id number] [address] [place] [address], [place] [address] Sep, [facility] [address] [id number] [address] [place] [address] Aug, [facility] [address] [id number] [address] [place] [address], [place] [address] Aug, [facility] [address] [id number] [address] [place] [address], [place] [address] Aug, [facility] [address] [id number] [address] [place] [address], [place] [address] Aug, [facility] [address] [id number] [address] [place] [address], [place] [address] Aug, [facility] [address] [id number] [address] [place] [address] Aug, [facility] [address] [id number] [address] [place] [address], [place] [address] Aug, [facility] [address] [id number] [address] [place] [address] Aug, [facility] [address] [id number] [address] [place] [address] Aug, [facility] [address] [id number] [address] [place] [address], [place] [address] Aug, [facility] [address] [id number] [address] [place] [address], [place] [address] Aug, [facility] [address] [id number] [address] [place] [address], [place] [address] Aug, [facility] [address] [id number] [address] [place] [address], [place] [address] Jul, [facility] [address] [id number] [address] [place] [address], [place] [address] Jul, [facility] [address] [id number] [address] [place] [address], [place] [address] Jul, [facility] [address] [id number] [address] [place] [address], [place] [address] Jul, [facility] [address] [id number] [address] [place] [address], [place] [address] Jul, [facility] [address] [id number] [address] [place] [address], [place] [address] Jul, [facility] [address] [id number] [address] [place] [address], [place] [address] Jul, [facility] [address] [id number] [address] [place] [address], [place] [address] Jul, [facility] [address] [id number] [address] [place] [address], [place] [address] Jul, [facility] [address] [id number] [address] [place] [address], [place] [address] Jul, [facility] [address] [id number] [address] [place] [address], [place] [address] Nov, [facility] [address] [id number] [address] [place] [address], [place] [address] Aug, [facility] [address] [id number] [address] [place] [address], [place] [address] Aug, [facility] [address] [id number] [address] [place] [address], [place] [address] Aug, [facility] [address] [id number] [address] [place] [address], [place] [address] Aug, [facility] [address] [id number] [address] [place] [address], [place] [address] Jul, IMMUNIZATIONS No Known Immunizations SOCIAL HISTORY Never Assessed REASON FOR V[place] [place] VITAL SIGNS MEDICATIONS Unknown [...] attempt by hanging 2015 Hospitalization History [facility] 01/30/2018-02/10/20 08 Hospitalization History [facility] 05/04/18-
--- OUTSIDE RECORDS SUMMARY | 2020-04-04 02:11 | XMS REPORT ---
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 Active 36866827 Problem Generalized anxiety disorder 300.02 A ctive 96807507 Problem Obsessive-compulsive disorders 300.3 Active 443777201 Problem Catatonic schizophrenia, 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 478582518 Problem Disorganized schizophrenia, 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 00438424 Problem Paranoid schizophrenia F20.0 Active 11102300 Problem Borderline personality disorder F60.3 Active 99295434 Problem Paranoid schizophrenia, unspecified condition 295.30 Active 33452573 Problem Schizoaffective disorder, depressive type F25.1 Active 06631075 Problem Bipolar disorder, unspecified 296.80 Active 61669581 Problem Schizoaffective disorder, unspecified F25.9 Active 15621407 Problem Attention deficit hyperactivity disorder (ADHD), inattentive type, 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 [id number] [address] [place] [phone] Jan, [facility] [address] 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 [id number] [address] [place] [phone] Jul, Dry skin dermatitis L85.3 [facility] [address] [facility] [id number] [address] [place] [phone] Jul, [facility] [address] [facility] [id number] [address] [place] [phone] Jul, Paranoid schizophrenia F20.0 [facility] [address] 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 and Borderline personality disorder F60.3 [facility] [address] [id number] [facility] [place] [address] Apr, [facility] [address] [id number] [address] [place] [address], [place] [address] Apr, Paranoid schizophrenia F20.0 ; Posttraumatic stress disorder F43.10 ; Attention deficit hyperactivity disorder (ADHD), inattentive type, 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 and Borderline personality disorder F60.3 [facility] [address] [id number] [address] [place] [phone] Apr, [facility] [address] [id number] [address] [place] [phone] Apr, Schizoaffective disorder, de pressive type F25.1 and Borderline personality disorder F60.3 [facility] [address] [id number] [address] [place] [phone] Apr, Paranoid schizophrenia F20.0 ; Posttraumatic stress disorder F43.10 ; Attention deficit hyperactivity disorder (ADHD), inattentive type, 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 and Borderline personality disorder F60.3 [facility] [address] [id number] [address] [place] [phone] Apr, [facility] [address] [id number] [address] [place] [id number] Apr, Paranoid schizophrenia F20.0 ; Posttraumatic stress disorder F43.10 ; Attention deficit hyperactivity disorder (ADHD), inattentive type, 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 and Borderline personality disorder F60.3 [facility] [address] [id number] [address] [place] [phone] Apr, [facility] [address] [id number] [address] [place] [address] Mar, Paranoid schizophrenia F20.0 [facility] [address] [id number] [address] [place] [phone] Mar, [facility] [address] [id number] [address] [place] [address] Mar, Paranoid schizophrenia F20.0 ; Posttraumatic stress disorder F43.10 ; Attention deficit hyperactivity disorder (ADHD), inattentive type, 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 and Borderline personality disorder F60.3 [facility] [address] [id number] [address] [place] [phone] February, Paranoid schizophrenia F20.0 [facility] [address] [id number] [address] [place] [phone] February, Paranoid schizophrenia F20.0 ; Posttraumatic stress disorder F43.10 ; Attention deficit hyperactivity disorder (ADHD), inattentive type, 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 and Borderline personality disorder F60.3 [facility] [address] [id number] [address] [place] [phone] February, Paranoid schizophrenia F20.0 ; Posttraumatic stress disorder F43.10 ; Attention deficit hyperactivity disorder (ADHD), inattentive type, 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 and Borderline personality disorder F60.3 [facility] [address] [id number] [address] [place] [phone] February, [facility] [address] [id number] [address] [place] [id number] February, Paranoid schizophrenia F20.0 [facility] [address] [id number] [address] [place] [phone] February, Paranoid schizophrenia F20.0 [facility] [address] [id number] [address] [place] [phone] February, Paranoid schizophrenia F20.0 ; Posttraumatic stress disorder F43.10 ; Attention deficit hyperactivity disorder (ADHD), inattentive type, 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 and Borderline personality disorder F60.3 [facility] [address] [id number] [address] [place] [phone] Jan, Paranoid schizophrenia F20.0 ; Posttraumatic stress disorder F43.10 ; Attention deficit hyperactivity disorder (ADHD), inattentive type, 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 and Borderline personality disorder F60.3 [facility] [address] [id number] [address] [place] [id number] Dec, [facility] [address] [id number] [address] [place] [phone] Nov, Paranoid schizophrenia F20.0 ; Posttraumatic stress disorder F43.10 ; Attention deficit hyperactivity disorder (ADHD), inattentive type, 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 and Borderline personality disorder F60.3 [facility] [address] [id number] [address] [place] [phone] Jul, Paranoid schizophrenia F20.0 [facility] [address] [id number] [address] [place] [id number] Jul, Paranoid schizophrenia F20.0 ; Posttraumatic stress disorder F43.10 ; Attention deficit hyperactivity disorder (ADHD), inattentive type, 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 and Borderline personality disorder F60.3 [facility] [address] [id number] [address] [place] [phone] Jun, Paranoid schizophrenia F20.0 ; Posttraumatic stress disorder F43.10 ; Attention deficit hyperactivity disorder (ADHD), inattentive type, 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 [id number] [address] [place] [phone] May, Attention deficit hyperactiv ity disorder (ADHD), inattentive type, mild F90.0 [facility] [address] 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 and Other retirement (current) drug therapy Z79.899 [facility] [address] [id number] [address] [place] [phone] Apr, Paranoid schizophrenia F20.0 [facility] [address] [id number] [address] [place] [phone] Apr, Paranoid schizophrenia F20.0 ; Posttraumatic stress disorder F43.10 and Attention deficit hyperactivity disorder (ADHD), inattentive type, 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 [facility] [address] [id number] [address] [place] [phone] February, [facility] [address] [id number] [address] [place] [id number] February, Paranoid schizophrenia F20.0 ; Posttraumatic stress disorder F43.10 and Attention deficit hyperactivity disorder (ADHD), inattentive type, 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 [facility] [address] [id number] [address] [place] [phone] February, Paranoid schizophrenia F20.0 ; Posttraumatic stress disorder F43.10 and Attention deficit hyperactivity disorder (ADHD), inattentive type, 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 [facility] [address] [id number] [address] [place] [id number] Jan, Paranoid schizophrenia F20.0 ; Posttraumatic stress disorder F43.10 and Attention deficit hyperactivity disorder (ADHD), inattentive type, 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 [facility] [address] [id number] [address] [place] [id number] Dec, Dental examination Z01.20 [facility] [address] [id number] [address] [place] [id number] Nov, Dental examination Z01.20 [facility] [address] [id number] [address] [place] [address] [id number] Nov, Dental examination Z01.20 [facility] [address] [id number] [address] [place] [address] [id number] Nov, Dental caries K02.9 [facility] [address] [id number] [address] [place] [phone] Nov, High risk medication use Z79 .899 [facility] [address] [id number] [address] [place] [phone] Nov, Paranoid schizophrenia F20.0 ; Posttraumatic stress disorder F43.10 ; Attention deficit hyperactivity disorder (ADHD), inattentive type, 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 and Borderline personality disorder in adult F60.3 [facility] [address] [id number] [address] [place] [address] [id number] Oct, Dental caries K02.9 [facility] [address] [id number] [address] [place] [phone] Sep, Paranoid schizophrenia F20.0 ; Posttraumatic stress disorder F43.10 and Attention deficit hyperactivity disorder (ADHD), inattentive type, 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 [facility] [address] [id number] [address] [place] [phone] Aug, Paranoid schizophrenia F20.0 ; Posttraumatic stress disorder F43.10 and Attention deficit hyperactivity disorder (ADHD), inattentive type, 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 [facility] [address] [id number] [address] [place] [phone] Aug, Strep throat J02.0 and Cough R05 [facility] [address] [id number] [address] [place] [phone] Aug, [facility] [address] [id number] [address] [place] [phone] 24 Jul, 2016 Paranoid schizophrenia F20.0 ; Posttraumatic stress disorder F43.10 and Attention deficit hyperactivity disorder (ADHD), inattentive type, 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 [facility] [address] [id number] [address] [place] [phone] Jul, [facility] [address] [id number] [address] [place] [id number] Jun, Paranoid schizophrenia F20.0 ; Posttraumatic stress disorder F43.10 and Attention deficit hyperactivity disorder (ADHD), inattentive type, 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 [facility] [address] [id number] [address] [place] [address] [id number] Jun, Dental examination Z01.20 [facility] [address] [id number] [address] [place] [phone] Jun, [facility] [address] [id number] [address] [place] [phone] May, Paranoid schizophrenia F20.0 [facility] [address] [id number] [address] [place] [phone] May, Paranoid schizophrenia F20.0 ; Posttraumatic stress disorder F43.10 and Attention deficit hyperactivity disorder (ADHD), inattentive type, 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 [facility] [address] [id number] [address] [place] [phone] May, [facility] [address] [id number] [address] [place] [phone] May, Paranoid schizophrenia F20.0 [facility] [address] [id number] [address] [place] [phone] May, [facility] [address] [id number] [address] [place] [phone] May, Paranoid schizophrenia F20.0 [facility] [address] [id number] [address] [place] [id number] May, Schizoaffective disorder, un specified F25.9 [facility] [address] [id number] [address] [place] [phone] May, Schizoaffective disorder, un specified F25.9 [facility] [address] [id number] [address] [place] [phone] May, [facility] [address] [id number] [address] [place] [phone] May, Paranoid schizophrenia F20.0 [facility] [address] [id number] [address] [place] [phone] May, Paranoid schizophrenia F20.0 ; Posttraumatic stress disorder F43.10 and Attention deficit hyperactivity disorder (ADHD), inattentive type, 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 [facility] [address] [id number] [address] [place] [address], [place] [address] Mar, [facility] [address] [id number] [facility] [place] [address] Mar, Paranoid schizophrenia F20.0 ; Posttraumatic stress disorder F43.10 and Attention deficit hyperactivity disorder (ADHD), inattentive type, 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 [facility] [address] [id number] [address] [place] [address], [place] [address] Mar, Paranoid schizophrenia F20.0 [facility] [address] [id number] [address] [place] [address], [place] [address] Mar, Paranoid schizophrenia F20.0 ; Attention deficit hyperactivity disorder (ADHD), inattentive type, 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 and Posttraumatic stress disorder F43.10 [facility] [address] [id number] [address] [place] [phone] Mar, [facility] [address] [id number] [address] [place] [address], [place] [address] Mar, Paranoid schizophrenia F20.0 ; Posttraumatic stress disorder F43.10 and Attention deficit hyperactivity disorder (ADHD), inattentive type, 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 [facility] [address] [id number] [address] [place] [address], [place] [address] February, [facility] [address] [id number] [address] [place] [phone] February, [facility] [address] [id number] [address] [place] [address], [place] [address] February, [facility] [address] [id number] [address] [place] [phone] February, [facility] [address] [id number] [address] [place] [address], [place] [address] Jan, Paranoid schizophrenia F20.0 [facility] [address] [id number] [address] [place] [address] [id number] Jan, Dental examination Z01.20 [facility] [address] [id number] [address] [place] [address] [id number] Jan, Dental caries K02.9 [facility] [address] [id number] [address] [place] [address] [id number] Jan, Dental examination Z01.20 [facility] [address] [id number] [address] [place] [address] [id number] Dec, Encounter for dental examina tion Z01.20 [facility] [address] [id number] [address] [place] [phone] Dec, Paranoid schizophrenia F20.0 [facility] [address] [id number] [address] [place] [address] [id number] Dec, Dental examination Z01.20 [facility] [address] [id number] [address] [place] [id number] Dec, [facility] [address] [id number] [address] [place] [phone] Dec, Paranoid schizophrenia F20.0 ; Posttraumatic stress disorder F43.10 and Attention deficit hyperactivity disorder (ADHD), inattentive type, 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 [facility] [address] [id number] [address] [place] [id number] Nov, Schizoaffective disorder, un specified F25.9 [facility] [address] [id number] [address] [place] [id number] Oct, Paranoid schizophrenia F20.0 [facility] [address] [id number] [address] [place] [id number] Oct, [facility] [address] [id number] [address] [place] [id number] Sep, Paranoid schizophrenia F20.0 ; Posttraumatic stress disorder F43.10 and Attention deficit hyperactivity disorder (ADHD), inattentive type, 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 [id number] [address] [place] [id number] Aug, Paranoid schizophrenia F20.0 [facility] [address] [facility] [id number] [address] [place] [id number] Aug, [facility] [address] 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 [id number] [address] [place] [id number] Jul, Bipolar disorder, unspecifie d F31.9 [facility] [address] [facility] [id number] [address] [place] [id number] Jul, [facility] [address] [facility] [id number] [address] [place] [id number] Jun, [facility] [address] [facility] [id number] [address] [place] [id number] Jun, Schizoaffective disorder, ch ronic 295.72 ; Posttraumatic stress disorder 309.81 and Attention deficit disorder of childhood without mention of hyperactivity 314.00 [facility] [address] [facility] [id number] [address] [place] [id number] May, [facility] [address] [facility] [id number] [address] [place] [id number] May, [facility] [address] [facility] [id number] [address] [place] [id number] May, Schizoaffective disorder, ch ronic 295.72 ; Posttraumatic stress disorder 309.81 ; Attention deficit disorder of childhood without mention of hyperactivity 314.00 and Bipolar disorder, unspecified 296.80 [facility] [address] [facility] [id number] [address] [place] [id number] Apr, Schizoaffective disorder, ch ronic 295.72 [facility] [address] [facility] [id number] [address] [place] [id number] Apr, [facility] [address] [id number] [address] [place] [id number] Apr, Schizoaffective disorder, ch ronic 295.72 ; Posttraumatic stress disorder 309.81 and Attention deficit disorder of childhood without mention of hyperactivity 314.00 [facility] [address] 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 [id number] [address] [place] [id number] Mar, [facility] [address] [facility] [id number] [address] [place] [id number] Mar, [facility] [address] [facility] [id number] [address] [place] [id number] Mar, [facility] [address] [facility] [id number] [address] [place] [id number] Mar, [facility] [address] [facility] [id number] [address] [place] [id number] February, Schizoaffective disorder, ch ronic 295.72 [facility] [address] [facility] [id number] [address] [place] [id number] February, [facility] [address] [facility] [id number] [address] [place] [id number] February, Attention 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 ; Posttraumatic stress disorder 309.81 and Schizoaffective disorder, chronic 295.72 [facility] [address] [id number] [address] [place] [address], [place] [address] 29 Jan, 2015 [facility] [address] [id number] [address] [place] [address], [place] [address] 14 Jan, 2015 [facility] [address] [id number] [address] [place] [address], [place] [address] Jan, [facility] [address] [id number] [address] [place] [address], [place] [address] Dec, [facility] [address] [id number] [address] [place] [address], [place] [address] Dec, [facility] [address] [id number] [address] [place] [address], [place] [address] Dec, [facility] [address] [id number] [address] [place] [address], [place] [address] Dec, [facility] [address] [id number] [address] [place] [address], [place] [address] Dec, [facility] [address] [id number] [address] [place] [address], [place] [address] Dec, [facility] [address] [id number] [address] [place] [address], [place] [address] Dec, [facility] [address] [id number] [address] [place] [address], [place] [address] Dec, [facility] [address] [id number] [address] [place] [address], [place] [address] Nov, [facility] [address] [id number] [address] [place] [address], [place] [address] Nov, [facility] [address] [id number] [address] [place] [address], [place] [address] Nov, [facility] [address] [id number] [address] [place] [address], [place] [address] Nov, [facility] [address] [id number] [address] [place] [address], [place] [address] Nov, [facility] [address] [id number] [address] [place] [address], [place] [address] Nov, [facility] [address] [id number] [address] [place] [address], [place] [address] Nov, [facility] [address] [id number] [address] [place] [address], [place] [address] Nov, [facility] [address] [id number] [address] [place] [address], [place] [address] Nov, [facility] [address] [id number] [address] [place] [address], [place] [address] Nov, [facility] [address] [id number] [address] [place] [address], [place] [address] Oct, [facility] [address] [id number] [address] [place] [address], [place] [address] Oct, [facility] [address] [id number] [address] [place] [address], [place] [address] Oct, [facility] [address] [id number] [address] [place] [address], [place] [address] Oct, [facility] [address] [id number] [address] [place] [address], [place] [address] Oct, [facility] [address] [id number] [address] [place] [address], [place] [address] Oct, [facility] [address] [id number] [address] [place] [address], [place] [address] Oct, [facility] [address] [id number] [address] [place] [address], [place] [address] Sep, [facility] [address] [id number] [address] [place] [address], [place] [address] Sep, [facility] [address] [id number] [address] [place] [address], [place] [address] Sep, [facility] [address] [id number] [address] [place] [address], [place] [address] 15 Sep, 2014 [facility] [address] [id number] [address] [place] [address], [place] [address] Aug, [facility] [address] [id number] [address] [place] [address], [place] [address] Aug, [facility] [address] [id number] [address] [place] [address], [place] [address] Aug, [facility] [address] [id number] [address] [place] [address], [place] [address] Aug, [facility] [address] [id number] [address] [place] [address], [place] [address] Aug, [facility] [address] [id number] [address] [place] [address], [place] [address] Aug, [facility] [address] [id number] [address] [place] [address], [place] [address] Jul, [facility] [address] [id number] [address] [place] [address], [place] [address] 29 Jul, 2014 [facility] [address] [id number] [address] [place] [address], [place] [address] 24 Jul, 2014 [facility] [address] [id number] [address] [place] [address], [place] [address] 24 Jul, 2014 [facility] [address] [id number] [address] [place] [address], [place] [address] 15 Jul, 2014 [facility] [address] [id number] [address] [place] [address], [place] [address] 15 Jul, 2014 [facility] [address] [id number] [address] [place] [address], [place] [address] 27 Jun, 2014 [facility] [address] [id number] [address] [place] [address], [place] [address] 27 Jun, 2014 [facility] [address] [id number] [address] [place] [address], [place] [address] Jun, 2013 [facility] [address] [id number] [facility] [place] [facility] [place] [address] 26 Jun, 2013 [facility] [address] [id number] [facility] [place] [address] Jun, 2013 [facility] [address] [id number] [address] [place] [address], [place] [address] Jun, 2013 [facility] [address] [id number] [address] [place] [address], [place] [address] 16 Jun, 2013 [facility] [address] [id number] [address] [place] [address], [place] [address] 16 Jun, 2013 [facility] [address] [id number] [address] [place] [address], [place] [address] Jun, 2013 [facility] [address] [id number] [address] [place] [address], [place] [address] Jun, 2013 [facility] [address] [id number] [address] [place] [address], [place] [address] Jun, [facility] [address] [id number] [address] [place] [address], [place] [address] May, [facility] [address] [id number] [address] [place] [address], [place] [address] May, [facility] [address] [id number] [address] [place] [address], [place] [address] May, [facility] [address] [id number] [address] [place] [address], [place] [address] May, [facility] [address] [id number] [address] [place] [address], [place] [address] May, [facility] [address] [id number] [address] [place] [address], [place] [address] May, [facility] [address] [id number] [address] [place] [address], [place] [address] May, [facility] [address] [id number] [address] [place] [address], [place] [address] May, [facility] [address] [id number] [address] [place] [address], [place] [address] May, [facility] [address] [id number] [address] [place] [address], [place] [address] May, [facility] [address] [id number] [address] [place] [address], [place] [address] Apr, [facility] [address] [id number] [address] [place] [address], [place] [address] Apr, [facility] [address] [id number] [address] [place] [address], [place] [address] Apr, [facility] [address] [id number] [address] [place] [address], [place] [address] Apr, [facility] [address] [id number] [address] [place] [address], [place] [address] Apr, [facility] [address] [id number] [address] [place] [address], [place] [address] Apr, [facility] [address] [id number] [address] [place] [address], [place] [address] Apr, [facility] [address] [id number] [address] [place] [address], [place] [address] Apr, [facility] [address] [id number] [address] [place] [address], [place] [address] Apr, [facility] [address] [id number] [address] [place] [address], [place] [address] Apr, [facility] [address] [id number] [address] [place] [address], [place] [address] Mar, [facility] [address] [id number] [address] [place] [address], [place] [address] Mar, [facility] [address] [id number] [address] [place] [address], [place] [address] Mar, [facility] [address] [id number] [address] [place] [address], [place] [address] Mar, [facility] [address] [id number] [address] [place] [address], [place] [address] Mar, [facility] [address] [id number] [address] [place] [address], [place] [address] Mar, [facility] [address] [id number] [address] [place] [address], [place] [address] Mar, [facility] [address] [id number] [address] [place] [address], [place] [address] Mar, [facility] [address] [id number] [address] [place] [address], [place] [address] Mar, [facility] [address] [id number] [address] [place] [address], [place] [address] Mar, [facility] [address] [id number] [address] [place] [address], [place] [address] Mar, [facility] [address] [id number] [address] [place] [address], [place] [address] Mar, [facility] [address] [id number] [address] [place] [address], [place] [address] Mar, [facility] [address] [id number] [address] [place] [address], [place] [address] Mar, [facility] [address] [id number] [address] [place] [address], [place] [address] Mar, [facility] [address] [id number] [address] [place] [address], [place] [address] Mar, [facility] [address] [id number] [address] [place] [address], [place] [address] Mar, [facility] [address] [id number] [address] [place] [address], [place] [address] 09 Mar, 2014 [facility] [address] [id number] [address] [place] [address], [place] [address] Mar, [facility] [address] [id number] [facility] [place] [address] Mar, [facility] [address] [id number] [address] [place] [address], [place] [address] February, [facility] [address] [id number] [address] [place] [address], [place] [address] February, [facility] [address] [id number] [address] [place] [address], [place] [address] February, [facility] [address] [id number] [address] [place] [address], [place] [address] February, [facility] [address] [id number] [address] [place] [address], [place] [address] February, [facility] [address] [id number] [address] [place] [address], [place] [address] February, [facility] [address] [id number] [address] [place] [address], [place] [address] February, [facility] [address] [id number] [address] [place] [address], [place] [address] February, [facility] [address] [id number] [address] [place] [address], [place] [address] February, [facility] [address] [id number] [address] [place] [address], [place] [address] February, [facility] [address] [id number] [address] [place] [address], [place] [address] February, [facility] [address] [id number] [address] [place] [address], [place] [address] February, [facility] [address] [id number] [address] [place] [address], [place] [address] February, [facility] [address] [id number] [address] [place] [address], [place] [address] February, [facility] [address] [id number] [address] [place] [address], [place] [address] February, [facility] [address] [id number] [address] [place] [address], [place] [address] February, [facility] [address] [id number] [address] [place] [address], [place] [address] February, [facility] [address] [id number] [address] [place] [address], [place] [address] February, [facility] [address] [id number] [address] [place] [address], [place] [address] February, [facility] [address] [id number] [address] [place] [address], [place] [address] February, [facility] [address] [id number] [address] [place] [address], [place] [address] February, [facility] [address] [id number] [address] [place] [address], [place] [address] Jan, [facility] [address] [id number] [address] [place] [address], [place] [address] Jan, [facility] [address] [id number] [address] [place] [address], [place] [address] Jan, [facility] [address] [id number] [address] [place] [address], [place] [address] Jan, [facility] [address] [id number] [address] [place] [address], [place] [address] Jan, [facility] [address] [id number] [address] [place] [address], [place] [address] Jan, [facility] [address] [id number] [address] [place] [address], [place] [address] Jan, [facility] [address] [id number] [address] [place] [address], [place] [address] Jan, [facility] [address] [id number] [address] [place] [address], [place] [address] Dec, [facility] [address] [id number] [facility] [place] [address] 20 Dec, 2013 [facility] [address] [id number] [facility] [place] [address] 20 Dec, 2013 [facility] [address] [id number] [facility] [place] [address] 19 Dec, 2013 [facility] [address] [id number] [address] [place] [address], [place] [address] 19 Dec, 2013 [facility] [address] [id number] [address] [place] [address], [place] [address] 15 Dec, 2013 [facility] [address] [id number] [address] [place] [address], [place] [address] 15 Dec, 2013 [facility] [address] [id number] [address] [place] [address], [place] [address] 11 Dec, 2013 [facility] [place] [facility] [address] [id number] [address] [place] [address], [place] [address] 10 Dec, 2013 [facility] [place] [facility] [address] [id number] [address] [place] [address], [place] [address] 10 Dec, 2013 [facility] [place] [facility] [address] [id number] [address] [place] [address], [place] [address] 18 Nov, 2013 [facility] [place] [facility] [address] [id number] [address] [place] [address], [place] [address] 17 Nov, 2013 [facility] [place] [facility] [address] [id number] [address] [place] [address], [place] [address] Nov, [facility] [place] [facility] [address] [id number] [address] [place] [address], [place] [address] 05 Nov, 2013 [facility] [place] [facility] [address] [id number] [address] [place] [address], [place] [address] 05 Nov, 2013 [facility] [place] [facility] [address] [id number] [address] [place] [address], [place] [address] Oct, [facility] [place] [facility] [address] [id number] [address] [place] [address] Oct, [facility] [address] [id number] [address] [place] [address], [place] [address] Oct, [facility] [address] [id number] [address] [place] [address], [place] [address] Sep, [facility] [address] [id number] [address] [place] [address], [place] [address] Sep, [facility] [address] [id number] [address] [place] [address], [place] [address] Sep, [facility] [address] [id number] [address] [place] [address], [place] [address] Sep, [facility] [address] [id number] [address] [place] [address], [place] [address] Aug, [facility] [address] [id number] [address] [place] [address], [place] [address] Aug, [facility] [address] [id number] [address] [place] [address], [place] [address] Jul, [facility] [address] [id number] [address] [place] [address], [place] [address] Jul, [facility] [address] [id number] [address] [place] [address], [place] [address] Jul, [facility] [address] [id number] [address] [place] [address], [place] [address] Jul, [facility] [address] [id number] [address] [place] [address], [place] [address] Jul, [facility] [address] [id number] [address] [place] [address], [place] [address] Jun, [facility] [address] [id number] [address] [place] [address], [place] [address] Jun, [facility] [address] [id number] [address] [place] [address], [place] [address] 19 Jun, 2013 [facility] [place] [facility] [address] [id number] [address] [place] [address], [place] [address] 18 Jun, 2013 [facility] [address] [id number] [address] [place] [address], [place] [address] 16 Jun, 2013 [facility] [address] [id number] [address] [place] [address], [place] [address] 12 Jun, 2013 [facility] [address] [id number] [address] [place] [address], [place] [address] 11 Jun, 2013 [facility] [address] [id number] [address] [place] [address], [place] [address] 30 May, 2013 [facility] [address] [id number] [address] [place] [address], [place] [address] May, [facility] [address] [id number] [address] [place] [address], [place] [address] Apr, [facility] [address] [id number] [address] [place] [address], [place] [address] Apr, [facility] [address] [id number] [address] [place] [address], [place] [address] Apr, [facility] [address] [id number] [address] [place] [address], [place] [address] Mar, [facility] [address] [id number] [address] [place] [address], [place] [address] Mar, [facility] [address] [id number] [address] [place] [address], [place] [address] February, [facility] [address] [id number] [address] [place] [address], [place] [address] February, [facility] [address] [id number] [address] [place] [address], [place] [address] February, [facility] [address] [address] [id number] [address] [place] [address], [place] [address] February, [facility] [address] [id number] [address] [place] [address], [place] [address] 19 Jan, 2013 [facility] [address] [id number] [address] [place] [address], [place] [address] 17 Jan, 2013 [facility] [address] [id number] [address] [place] [address], [place] [address] 16 Jan, 2013 [facility] [address] [id number] [address] [place] [address], [place] [address] 29 Dec, 2012 [facility] [address] [id number] [address] [place] [address], [place] [address] Dec, [facility] [address] [id number] [address] [place] [address], [place] [address] Dec, [facility] [address] [id number] [address] [place] [address], [place] [address] 08 Dec, 2012 [facility] [address] [id number] [address] [place] [address], [place] [address] Nov, [facility] [address] [id number] [address] [place] [address], [place] [address] Nov, [facility] [address] [id number] [address] [place] [address], [place] [address] Oct, [facility] [address] [id number] [address] [place] [address], [place] [address] Oct, [facility] [address] [id number] [address] [place] [address], [place] [address] Oct, [facility] [address] [id number] [address] [place] [address], [place] [address] Oct, [facility] [address] [id number] [address] [place] [address], [place] [address] Aug, [facility] [address] [id number] [address] [place] [address], [place] [address] Aug, [facility] [address] [id number] [address] [place] [address], [place] [address] 18 Jun, 2012 [facility] [address] [id number] [facility] [place] [facility] [place] [address] May, [facility] [address] [id number] [address] [place] [address], [place] [address] May, [facility] [address] [id number] [address] [place] [address], [place] [address] Apr, [facility] [address] [id number] [address] [place] [address], [place] [address] Apr, [facility] [address] [id number] [address] [place] [address], [place] [address] Apr, [facility] [address] [id number] [address] [place] [address], [place] [address] Mar, [facility] [address] [id number] [address] [place] [address], [place] [address] Mar, [facility] [address] [id number] [address] [place] [address], [place] [address] Mar, [facility] [address] [id number] [address] [place] [address], [place] [address] Mar, [facility] [address] [id number] [address] [place] [address], [place] [address] Mar, [facility] [address] [id number] [address] [place] [address], [place] [address] February, [facility] [address] [id number] [address] [place] [address], [place] [address] February, [facility] [address] [id number] [address] [place] [address], [place] [address] February, [facility] [address] [id number] [address] [place] [address], [place] [address] February, [facility] [address] [id number] [address] [place] [address], [place] [address] February, [facility] [address] [id number] [address] [place] [address], [place] [address] February, [facility] [address] [id number] [address] [place] [address], [place] [address] February, [facility] [address] [id number] [address] [place] [address], [place] [address] Jan, [facility] [address] [id number] [address] [place] [address], [place] [address] Jan, [facility] [address] [id number] [address] [place] [address], [place] [address] 17 Jan, 2012 [facility] [address] [id number] [address] [place] [address], [place] [address] Jan, [facility] [address] [id number] [address] [place] [address], [place] [address] Jan, [facility] [address] [id number] [address] [place] [address], [place] [address] Jan, [facility] [address] [id number] [address] [place] [address], [place] [address] 30 Dec, 2011 [facility] [address] [id number] [address] [place] [address], [place] [address] 24 Dec, 2011 [facility] [address] [id number] [address] [place] [address], [place] [address] Dec, [facility] [address] [id number] [address] [place] [address], [place] [address] Dec, [facility] [address] [id number] [address] [place] [address], [place] [address] Dec, [facility] [address] [id number] [address] [place] [address], [place] [address] Nov, [facility] [address] [id number] [address] [place] [address], [place] [address] Nov, [facility] [address] [id number] [address] [place] [address], [place] [address] Nov, [facility] [address] [id number] [address] [place] [address], [place] [address] 14 Nov, 2011 [facility] [address] [id number] [address] [place] [address], [place] [address] 10 Nov, 2011 [facility] [address] [id number] [address] [place] [address], [place] [address] Nov, [facility] [address] [id number] [address] [place] [address], [place] [address] Oct, [facility] [address] [id number] [address] [place] [address], [place] [address] Oct, [facility] [address] [id number] [address] [place] [address], [place] [address] Oct, [facility] [address] [id number] [address] [place] [address], [place] [address] Oct, [facility] [address] [id number] [address] [place] [address], [place] [address] Oct, [facility] [address] [id number] [address] [place] [address], [place] [address] Sep, [facility] [address] [id number] [address] [place] [address], [place] [address] Sep, [facility] [address] [id number] [address] [place] [address], [place] [address] Sep, [facility] [address] [id number] [address] [place] [address], [place] [address] 14 Sep, 2011 [facility] [address] [id number] [address] [place] [address], [place] [address] 14 Sep, 2011 [facility] [address] [id number] [address] [place] [address], [place] [address] 13 Sep, 2011 [facility] [address] [id number] [address] [place] [address], [place] [address] 12 Sep, 2011 [facility] [address] [id number] [address] [place] [address], [place] [address] Sep, [facility] [address] [id number] [address] [place] [address], [place] [address] Sep, [facility] [address] [id number] [address] [place] [address], [place] [address] Aug, [facility] [address] [id number] [address] [place] [address], [place] [address] Aug, [facility] [address] [id number] [address] [place] [address], [place] [address] Aug, [facility] [address] [id number] [address] [place] [address], [place] [address] Aug, [facility] [address] [id number] [address] [place] [address], [place] [address] Aug, [facility] [address] [id number] [address] [place] [address], [place] [address] Aug, [facility] [address] [id number] [address] [place] [address], [place] [address] Aug, [facility] [address] [id number] [address] [place] [address], [place] [address] Aug, [facility] [address] [id number] [address] [place] [address], [place] [address] Aug, [facility] [address] [id number] [address] [place] [address], [place] [address] Aug, [facility] [address] [id number] [address] [place] [address], [place] [address] Aug, [facility] [address] [id number] [address] [place] [address], [place] [address] Aug, [facility] [address] [id number] [address] [place] [address], [place] [address] Jul, [facility] [address] [id number] [address] [place] [address], [place] [address] Jul, [facility] [address] [id number] [address] [place] [address] Jul, [facility] [address] [id number] [address] [place] [id number] Jul, [facility] [address] [id number] [address] [place] [id number] Jul, [facility] [address] [id number] [address] [place] [id number] Jul, [facility] [address] [id number] [address] [place] [id number] Jul, [facility] [address] [id number] [address] [place] [id number] Jul, [facility] [address] [id number] [address] [place] [id number] Jul, [facility] [address] [id number] [address] [place] [id number] Jul, [facility] [address] [id number] [address] [place] [id number] Nov, [facility] [address] [id number] [address] [place] [id number] Aug, [facility] [address] [id number] [address] [place] [id number] Aug, [facility] [address] [id number] [address] [place] [id number] Aug, [facility] [address] [id number] [address] [place] [id number] Aug, [facility] [address] [id number] [address] [place] [id number] Jul, IMMUNIZATIONS No Known Immunizations SOCIAL HISTORY Never Assessed REASON FOR VISIT EMR-[facility] PLAN OF CARE VITAL SIGNS [...] by hanging 2015 Hospitalization History [facility] 01/30/2018-02/10/20 08 Hospitalization History [facility] 05/04/18-
--- OUTSIDE RECORDS SUMMARY | 2020-04-04 02:11 | XMS REPORT ---
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 Active 67916607 Problem Generalized anxiety disorder 300.02 A ctive 07028533 Problem Obsessive-compulsive disorders 300.3 Active 466895310 Problem Catatonic schizophrenia, 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 952420633 Problem Disorganized schizophrenia, 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 41841999 Problem Paranoid schizophrenia F20.0 Active 44605804 Problem Borderline personality disorder F60.3 Active 29623489 Problem Paranoid schizophrenia, unspecified condition 295.30 Active 35276646 Problem Schizoaffective disorder, depressive type F25.1 Active 60036695 Problem Bipolar disorder, unspecified 296.80 Active 26890093 Problem Schizoaffective disorder, unspecified F25.9 Active 21029957 Problem Attention deficit hyperactivity disorder (ADHD), inattentive type, 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 57452447 Problem Posttraumatic stress disorder F43.10 Active 74147635 Problem High risk medication use Z79.899 Activ e [id number] ALLERGIES No Information ENCOUNTERS Encounter Location Date Diagnosis [facility] [address] [facility] [id number] [address] [place] [phone] Mar, [facility] [place] [address] [facility] [id number] [address] [place] [id number] Jan, Paranoid schizophrenia F20.0 ; Posttraumatic stress disorder F43.10 ; Attention deficit hyperactivity disorder (ADHD), inattentive type, 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 and Borderline personality disorder F60.3 [facility] [place] [address] [facility] [id number] [address] [place] [phone] Dec, Paranoid schizophrenia F20.0 ; Posttraumatic stress disorder F43.10 ; Attention deficit hyperactivity disorder (ADHD), inattentive type, 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 and Borderline personality disorder F60.3 [facility] [place] [address] [facility] [id number] [address] [place] [phone] Dec, Paranoid schizophrenia F20.0 ; Posttraumatic stress disorder F43.10 ; Attention deficit hyperactivity disorder (ADHD), inattentive type, 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 and Borderline personality disorder F60.3 [facility] [place] [address] [place] [id number] [place] [id number] Oct, Paranoid schizophrenia F20.0 ; Posttraumatic stress disorder F43.10 ; Attention deficit hyperactivity disorder (ADHD), inattentive type, 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 and Borderline personality disorder F60.3 [facility] [place] [address] [place] [id number] [address] [place] [id number] Oct, Paranoid schizophrenia F20.0 ; Posttraumatic stress disorder F43.10 ; Attention deficit hyperactivity disorder (ADHD), inattentive type, 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 and Borderline personality disorder F60.3 [facility] [place] [id number] [place] [id number] Aug, [facility] [place] [address] [place] [id number] [place] [phone] Aug, Paranoid schizophrenia F20.0 ; Posttraumatic stress disorder F43.10 ; Attention deficit hyperactivity disorder (ADHD), inattentive type, 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 and Borderline personality disorder F60.3 [facility] [address] [facility] [id number] [address] [place] [id number] Jul, Dry skin dermatitis L85.3 [facility] [place] [address] [facility] [id number] [address] [place] [phone] Jul, [facility] [place] [address] [place] [id number] [address] [place] [id number] Jul, Paranoid schizophrenia F20.0 [facility] [place] [address] [place] [id number] [address] [place] [id number] May, Paranoid schizophrenia F20.0 ; Posttraumatic stress disorder F43.10 ; Attention deficit hyperactivity disorder (ADHD), inattentive type, 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 and Borderline personality disorder F60.3 [facility] [place] [address] [id number] [address] [place] [phone] May, [facility] [place] [address] [id number] [address] [place] [id number] May, Paranoid schizophrenia F20.0 [facility] [place] [address] [id number] [address] [place] [phone] May, Paranoid schizophrenia F20.0 ; Posttraumatic stress disorder F43.10 ; Attention deficit hyperactivity disorder (ADHD), inattentive type, 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 and Borderline personality disorder F60.3 [facility] [place] [address] [id number] [address] [place] [id number] Apr, [facility] [address] [id number] [address] [place] [phone] Apr, Paranoid schizophrenia F20.0 ; Posttraumatic stress disorder F43.10 ; Attention deficit hyperactivity disorder (ADHD), inattentive type, 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 and Borderline personality disorder F60.3 [facility] [address] [id number] [address] [place] [phone] Apr, [facility] [address] [id number] [address] [place] [id number] Apr, Schizoaffective disorder, de pressive type F25.1 and Borderline personality disorder F60.3 [facility] [place] [address] [id number] [address] [place] [id number] Apr, Paranoid schizophrenia F20.0 ; Posttraumatic stress disorder F43.10 ; Attention deficit hyperactivity disorder (ADHD), inattentive type, 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 and Borderline personality disorder F60.3 [facility] [place] [address] [id number] [address] [place] [phone] Apr, [facility] [place] [address] [id number] [address] [place] [id number] Apr, Paranoid schizophrenia F20.0 ; Posttraumatic stress disorder F43.10 ; Attention deficit hyperactivity disorder (ADHD), inattentive type, 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 and Borderline personality disorder F60.3 [facility] [place] [address] [id number] [address] [place] [phone] Apr, [facility] [place] [address] [id number] [address] [place] [id number] Mar, Paranoid schizophrenia F20.0 [facility] [place] [address] [id number] [address] [place] [phone] Mar, [facility] [place] [address] [facility] [id number] [address] [place] [id number] Mar, Paranoid schizophrenia F20.0 ; Posttraumatic stress disorder F43.10 ; Attention deficit hyperactivity disorder (ADHD), inattentive type, 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 and Borderline personality disorder F60.3 [facility] [place] [address] [facility] [id number] [address] [place] [phone] February, Paranoid schizophrenia F20.0 [facility] [place] [address] [id number] [address] [place] [id number] February, Paranoid schizophrenia F20.0 ; Posttraumatic stress disorder F43.10 ; Attention deficit hyperactivity disorder (ADHD), inattentive type, 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 and Borderline personality disorder F60.3 [facility] [place] [address] [id number] [address] [place] [id number] February, Paranoid schizophrenia F20.0 ; Posttraumatic stress disorder F43.10 ; Attention deficit hyperactivity disorder (ADHD), inattentive type, 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 and Borderline personality disorder F60.3 [facility] [place] [address] [id number] [address] [place] [id number] February, [facility] [place] [address] [id number] [address] [place] [phone] February, Paranoid schizophrenia F20.0 [facility] [place] [address] [facility] [id number] [address] [place] [id number] February, Paranoid schizophrenia F20.0 [facility] [place] [address] [facility] [id number] [address] [place] [phone] February, Paranoid schizophrenia F20.0 ; Posttraumatic stress disorder F43.10 ; Attention deficit hyperactivity disorder (ADHD), inattentive type, 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 and Borderline personality disorder F60.3 [facility] [place] [address] [facility] [id number] [address] [place] [phone] Jan, Paranoid schizophrenia F20.0 ; Posttraumatic stress disorder F43.10 ; Attention deficit hyperactivity disorder (ADHD), inattentive type, 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 and Borderline personality disorder F60.3 [facility] [place] [address] [facility] [id number] [address] [place] [id number] Jan, Paranoid schizophrenia F20.0 [facility] [place] [address] [facility] [id number] [address] [place] [phone] Jan, Paranoid schizophrenia F20.0 [facility] [place] [address] [id number] [address] [place] [id number] Jan, Paranoid schizophrenia F20.0 ; Posttraumatic stress disorder F43.10 ; Attention deficit hyperactivity disorder (ADHD), inattentive type, 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 and Borderline personality disorder F60.3 [facility] [place] [address] [facility] [id number] [address] [place] [phone] Dec, [facility] [address] [facility] [id number] [address] [place] [id number] Nov, Paranoid schizophrenia F20.0 ; Posttraumatic stress disorder F43.10 ; Attention deficit hyperactivity disorder (ADHD), inattentive type, 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 and Borderline personality disorder F60.3 [facility] [place] [address] [facility] [id number] [address] [place] [id number] Nov, [facility] [place] [address] [facility] [id number] [address] [place] [id number] Oct, Paranoid schizophrenia F20.0 [facility] [place] [address] [id number] [address] [place] [id number] Oct, Paranoid schizophrenia F20.0 ; Posttraumatic stress disorder F43.10 ; Attention deficit hyperactivity disorder (ADHD), inattentive type, 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 ; Borderline personality disorder F60.3 and Other intermediate designer (current) drug therapy Z79.899 [facility] [place] [address] [id number] [address] [place] [id number] Oct, [facility] [address] [id number] [address] [place] [phone] Oct, [facility] [address] [id number] [address] [place] [address], [place] [address] Sep, [facility] [address] [id number] [address] [place] [id number] Sep, Paranoid schizophrenia F20.0 ; Posttraumatic stress disorder F43.10 ; Attention deficit hyperactivity disorder (ADHD), inattentive type, 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 and Borderline personality disorder F60.3 [facility] [place] [address] [id number] [address] [place] [id number] Sep, Paranoid schizophrenia F20.0 [facility] [place] [address] [id number] [address] [place] [phone] Aug, Paranoid schizophrenia F20.0 ; Posttraumatic stress disorder F43.10 ; Attention deficit hyperactivity disorder (ADHD), inattentive type, 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 and Borderline personality disorder F60.3 [facility] [place] [address] [id number] [address] [place] [id number] Aug, Paranoid schizophrenia F20.0 ; Posttraumatic stress disorder F43.10 ; Attention deficit hyperactivity disorder (ADHD), inattentive type, 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 and Borderline personality disorder F60.3 [facility] [address] [id number] [address] [place] [id number] 09 Aug, 2017 [facility] [place] [address] [id number] [address] [place] [id number] Jul, Paranoid schizophrenia F20.0 ; Posttraumatic stress disorder F43.10 ; Attention deficit hyperactivity disorder (ADHD), inattentive type, 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 and Borderline personality disorder F60.3 [facility] [place] [address] [facility] [id number] [address] [place] [id number] Jul, Paranoid schizophrenia F20.0 [facility] [place] [address] [id number] [address] [place] [phone] Jul, Paranoid schizophrenia F20.0 ; Posttraumatic stress disorder F43.10 ; Attention deficit hyperactivity disorder (ADHD), inattentive type, 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 and Borderline personality disorder F60.3 [facility] [address] [id number] [address] [place] [id number] Jun, Paranoid schizophrenia F20.0 ; Posttraumatic stress disorder F43.10 ; Attention deficit hyperactivity disorder (ADHD), inattentive type, 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 and Borderline personality disorder F60.3 [facility] [address] [facility] [id number] [address] [place] [id number] May, Other intermediate designer (current) dr gabriel parra Z79.899 [facility] [place] [address] [facility] [id number] [address] [place] [id number] May, [facility] [place] [address] [facility] [id number] [address] [place] [id number] May, [facility] [place] [address] [facility] [id number] [address] [place] [id number] May, Attention deficit hyperactiv ity disorder (ADHD), inattentive type, mild F90.0 [facility] [place] [address] [id number] [address] [place] [id number] May, [facility] [place] [address] [facility] [id number] [address] [place] [id number] May, Attention deficit hyperactiv ity disorder (ADHD), inattentive type, mild F90.0 [facility] [place] [address] [facility] [id number] [address] [place] [phone] May, Paranoid schizophrenia F20.0 ; Posttraumatic stress disorder F43.10 ; Attention deficit hyperactivity disorder (ADHD), inattentive type, 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 and Other shelter (current) drug therapy Z79.899 [facility] [address] [id number] [address] [place] [id number] Apr, Paranoid schizophrenia F20.0 [facility] [place] [address] [id number] [address] [place] [id number] Apr, Paranoid schizophrenia F20.0 ; Posttraumatic stress disorder F43.10 and Attention deficit hyperactivity disorder (ADHD), inattentive type, 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 [facility] [address] [id number] [address] [place] [phone] February, [facility] [place] [address] [id number] [address] [place] [id number] February, Paranoid schizophrenia F20.0 ; Posttraumatic stress disorder F43.10 and Attention deficit hyperactivity disorder (ADHD), inattentive type, 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 [facility] [address] [id number] [address] [place] [phone] February, Paranoid schizophrenia F20.0 ; Posttraumatic stress disorder F43.10 and Attention deficit hyperactivity disorder (ADHD), inattentive type, 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 [facility] [place] [address] [id number] [address] [place] [phone] Jan, Paranoid schizophrenia F20.0 ; Posttraumatic stress disorder F43.10 and Attention deficit hyperactivity disorder (ADHD), inattentive type, 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 [facility] [address] [id number] [address] [place] [id number] Dec, Dental examination Z01.20 [facility] [address] [id number] [address] [place] [id number] Nov, Dental examination Z01.20 [facility] [address] [id number] [address] [place] [id number] Feb, 2017 Dental examination Z01.20 [facility] [address] [id number] [address] [place] [id number] 14 Nov, 2016 Dental caries K02.9 [facility] [address] [facility] [id number] [address] [place] [id number] 13 Nov, 2016 High risk medication use Z79 .899 [facility] [place] [address] [facility] [id number] [address] [place] [id number] 01 Nov, 2016 Paranoid schizophrenia F20.0 ; Posttraumatic stress disorder F43.10 ; Attention deficit hyperactivity disorder (ADHD), inattentive type, 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 and Borderline personality disorder in adult F60.3 [facility] [address] [id number] [address] [place] [address] [id number] Oct, Dental caries K02.9 [facility] [place] [address] [facility] [id number] [address] [place] [id number] Sep, Paranoid schizophrenia F20.0 ; Posttraumatic stress disorder F43.10 and Attention deficit hyperactivity disorder (ADHD), inattentive type, 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 [facility] [address] [facility] [id number] [address] [place] [id number] Aug, Paranoid schizophrenia F20.0 ; Posttraumatic stress disorder F43.10 and Attention deficit hyperactivity disorder (ADHD), inattentive type, 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 [facility] [address] [facility] [id number] [address] [place] [phone] Aug, Strep throat J02.0 and Cough R05 [facility] [address] [facility] [id number] [address] [place] [id number] Aug, [facility] [place] [address] [facility] [id number] [address] [place] [id number] Jul, Paranoid schizophrenia F20.0 ; Posttraumatic stress disorder F43.10 and Attention deficit hyperactivity disorder (ADHD), inattentive type, 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 [facility] [address] [facility] [id number] [address] [place] [phone] Jul, [facility] [address] [id number] [address] [place] [id number] Jun, Paranoid schizophrenia F20.0 ; Posttraumatic stress disorder F43.10 and Attention deficit hyperactivity disorder (ADHD), inattentive type, 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 [facility] [address] [id number] [address] [place] [id number] Jun, Dental examination Z01.20 [facility] [address] [id number] [address] [place] [phone] Jun, [facility] [address] [id number] [address] [place] [id number] May, Paranoid schizophrenia F20.0 [facility] [address] [id number] [address] [place] [id number] May, Paranoid schizophrenia F20.0 ; Posttraumatic stress disorder F43.10 and Attention deficit hyperactivity disorder (ADHD), inattentive type, 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 [facility] [address] [id number] [address] [place] [id number] May, [facility] [address] [id number] [address] [place] [phone] May, Paranoid schizophrenia F20.0 [facility] [address] [id number] [address] [place] [phone] May, [facility] [address] [id number] [address] [place] [phone] May, Paranoid schizophrenia F20.0 [facility] [address] [id number] [address] [place] [id number] May, Schizoaffective disorder, un specified F25.9 [facility] [place] [address] [id number] [address] [place] [id number] May, Schizoaffective disorder, un specified F25.9 [facility] [place] [address] [id number] [address] [place] [id number] May, [facility] [place] [address] [id number] [address] [address] May, Paranoid schizophrenia F20.0 [facility] [place] [address] [id number] [address] [place] [address], [place] [address] May, Paranoid schizophrenia F20.0 ; Posttraumatic stress disorder F43.10 and Attention deficit hyperactivity disorder (ADHD), inattentive type, 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 [facility] [place] [address] [id number] [address] [place] [id number] Mar, [facility] [place] [address] [id number] [address] [place] [address], [place] [address] Mar, Paranoid schizophrenia F20.0 ; Posttraumatic stress disorder F43.10 and Attention deficit hyperactivity disorder (ADHD), inattentive type, 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 [facility] [place] [address] [id number] [address] [place] [address], [place] [id number] Mar, Paranoid schizophrenia F20.0 [facility] [place] [address] [id number] [address] [place] [address], [place] [address] Mar, Paranoid schizophrenia F20.0 ; Attention deficit hyperactivity disorder (ADHD), inattentive type, 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 and Posttraumatic stress disorder F43.10 [facility] [address] [id number] [address] [place] [address], [place] [address] Mar, [facility] [address] [id number] [address] [place] [id number] Mar, Paranoid schizophrenia F20.0 ; Posttraumatic stress disorder F43.10 and Attention deficit hyperactivity disorder (ADHD), inattentive type, 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 [facility] [address] [id number] [address] [place] [address], [place] [address] February, [facility] [place] [address] [id number] [address] [place] [address], [place] [address] February, [facility] [place] [address] [id number] [address] [place] [phone] February, [facility] [place] [address] [id number] [address] [place] [phone] February, [facility] [place] [address] [id number] [address] [place] [id number] Jan, Paranoid schizophrenia F20.0 [facility] [address] [id number] [address] [place] [id number] Jan, Dental examination Z01.20 [facility] [address] [id number] [address] [place] [id number] Jan, Dental caries K02.9 [facility] [address] [id number] [address] [place] [id number] Jan, Dental examination Z01.20 [facility] [address] [id number] [address] [place] [address] [id number] Dec, Encounter for dental examina tion Z01.20 [facility] [address] [id number] [address] [place] [id number] Dec, Paranoid schizophrenia F20.0 [facility] [address] [id number] [address] [place] [address] [id number] Dec, Dental examination Z01.20 [facility] [place] [address] [id number] [address] [place] [phone] Dec, [facility] [place] [address] [id number] [address] [place] [phone] Dec, Paranoid schizophrenia F20.0 ; Posttraumatic stress disorder F43.10 and Attention deficit hyperactivity disorder (ADHD), inattentive type, 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 [facility] [place] [address] [id number] [address] [place] [id number] Nov, Schizoaffective disorder, un specified F25.9 [facility] [address] [id number] [address] [place] [phone] Oct, Paranoid schizophrenia F20.0 [facility] [place] [address] [id number] [address] [place] [phone] Oct, [facility] [place] [address] [facility] [id number] [address] [place] [id number] Sep, Paranoid schizophrenia F20.0 ; Posttraumatic stress disorder F43.10 and Attention deficit hyperactivity disorder (ADHD), inattentive type, 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 [facility] [place] [address] [id number] [address] [place] [phone] Sep, [facility] [place] [address] [id number] [address] [place] [id number] Sep, Paranoid schizophrenia F20.0 ; Posttraumatic stress disorder F43.10 and Attention deficit hyperactivity disorder (ADHD), inattentive type, 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 [facility] [place] [address] [id number] [address] [place] [id number] Aug, Paranoid schizophrenia F20.0 [facility] [place] [address] [facility] [id number] [address] [place] [id number] Aug, [facility] [address] [facility] [id number] [address] [place] [id number] Aug, Posttraumatic stress disorde r F43.10 ; Paranoid schizophrenia F20.0 and Attention deficit hyperactivity disorder (ADHD), inattentive type, 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 [facility] [place] [address] [facility] [id number] [address] [place] [id number] Jul, Bipolar disorder, unspecifie d F31.9 [facility] [place] [address] [facility] [id number] [address] [place] [id number] Jul, [facility] [place] [address] [facility] [id number] [address] [place] [phone] Jun, [facility] [place] [address] [facility] [id number] [address] [place] [id number] Jun, Schizoaffective disorder, ch ronic 295.72 ; Posttraumatic stress disorder 309.81 and Attention deficit disorder of childhood without mention of hyperactivity 314.00 [facility] [place] [address] [facility] [id number] [address] [place] [phone] May, [facility] [place] [address] [id number] [address] [place] [id number] May, [facility] [place] [address] [id number] [address] [place] [phone] May, Schizoaffective disorder, ch ronic 295.72 ; Posttraumatic stress disorder 309.81 ; Attention deficit disorder of childhood without mention of hyperactivity 314.00 and Bipolar disorder, unspecified 296.80 [facility] [address] [id number] [address] [place] [phone] Apr, Schizoaffective disorder, ch ronic 295.72 [facility] [place] [address] [id number] [address] [place] [id number] Apr, [facility] [place] [address] [id number] [address] [place] [id number] Apr, Schizoaffective disorder, ch ronic 295.72 ; Posttraumatic stress disorder 309.81 and Attention deficit disorder of childhood without mention of hyperactivity 314.00 [facility] [address] [id number] [address] [place] [phone] Mar, Disorganized schizophrenia, 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 [facility] [place] [address] [id number] [address] [place] [phone] Mar, [facility] [place] [address] [id number] [address] [place] [id number] Mar, [facility] [place] [address] [facility] [id number] [address] [place] [phone] Mar, [facility] [place] [address] [id number] [address] [place] [id number] Mar, [facility] [place] [address] [facility] [id number] [address] [place] [id number] February, Schizoaffective disorder, ch ronic 295.72 [facility] [place] [address] [facility] [id number] [address] [place] [phone] February, [facility] [address] [id number] [address] [place] [phone] February, Attention 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 ; Posttraumatic stress disorder 309.81 and Schizoaffective disorder, chronic 295.72 [facility] [address] [id number] [address] [place] [phone] Jan, [facility] [address] [id number] [address] [place] [id number] Jan, [facility] [address] [id number] [address] [place] [id number] Jan, [facility] [address] [id number] [address] [place] [id number] Dec, [facility] [address] [id number] [address] [place] [phone] Dec, [facility] [address] [id number] [address] [place] [id number] Dec, [facility] [address] [id number] [address] [place] [id number] Dec, [facility] [address] [id number] [address] [place] [id number] Dec, [facility] [address] [id number] [address] [place] [id number] Dec, [facility] [address] [id number] [address] [place] [phone] Dec, [facility] [address] [id number] [address] [place] [phone] Dec, [facility] [address] [id number] [address] [place] [id number] Nov, [facility] [address] [id number] [address] [place] [id number] Nov, [facility] [address] [id number] [address] [place] [address] [place] [address] Nov, 2014 [facility] [address] [id number] [address] [place] [address], [place] [address] Nov, 2014 [facility] [address] [id number] [address] [place] [address], [place] [address] Nov, 2014 [facility] [address] [id number] [address] [place] [address], [place] [address] Nov, 2014 [facility] [address] [id number] [address] [place] [address], [place] [address] Nov, 2014 [facility] [address] [id number] [address] [place] [address], [place] [address] Nov, 2014 [facility] [address] [id number] [address] [place] [address], [place] [address] Nov, [facility] [address] [id number] [address] [place] [address], [place] [address] Nov, [facility] [address] [id number] [address] [place] [address], [place] [address] Oct, [facility] [address] [id number] [address] [place] [address], [place] [address] Oct, [facility] [address] [id number] [address] [place] [phone] Oct, [facility] [address] [id number] [address] [place] [address], [place] [address] Oct, [facility] [address] [id number] [address] [place] [id number] Oct, [facility] [address] [id number] [address] [place] [address], [place] [address] Oct, [facility] [address] [id number] [address] [place] [address], [place] [address] Oct, [facility] [address] [id number] [address] [place] [address], [place] [address] Sep, [facility] [address] [id number] [address] [place] [address], [place] [address] 17 Sep, 2014 [facility] [address] [id number] [address] [place] [address], [place] [address] 15 Sep, 2014 [facility] [address] [id number] [address] [place] [address], [place] [address] 15 Sep, 2014 [facility] [address] [id number] [address] [place] [address], [place] [address] Aug, [facility] [address] [id number] [address] [place] [address], [place] [address] Aug, [facility] [address] [id number] [address] [place] [address], [place] [address] Aug, [facility] [address] [id number] [address] [place] [address], [place] [address] Aug, [facility] [address] [id number] [address] [place] [address], [place] [address] Aug, [facility] [address] [id number] [address] [place] [address], [place] [address] Aug, [facility] [address] [id number] [address] [place] [address], [place] [address] Jul, [facility] [address] [id number] [address] [place] [address], [place] [address] 29 Jul, 2014 [facility] [address] [id number] [address] [place] [address], [place] [address] 24 Jul, 2014 [facility] [address] [id number] [address] [place] [address], [place] [address] 24 Jul, 2014 [facility] [address] [id number] [address] [place] [address], [place] [address] 15 Jul, 2014 [facility] [address] [id number] [address] [place] [address], [place] [address] 15 Jul, 2014 [facility] [address] [id number] [address] [place] [address] [place] [address] 27 Sep, 2013 [facility] [address] [id number] [facility] [place] [address] 27 Sep, 2013 [facility] [address] [id number] [facility] [place] [address] 26 Sep, 2013 [facility] [address] [id number] [address] [place] [address], [place] [address] 26 Sep, 2013 [facility] [address] [id number] [address] [place] [address], [place] [address] 26 Jun, 2013 [facility] [address] [id number] [address] [place] [address], [place] [address] 26 Jun, 2013 [facility] [address] [id number] [address] [place] [address], [place] [address] 16 Jun, 2013 [facility] [address] [id number] [address] [place] [address], [place] [address] 16 Jun, 2013 [facility] [address] [id number] [address] [place] [address], [place] [address] 16 Jun, 2013 [facility] [address] [id number] [address] [place] [address], [place] [address] 16 Jun, 2013 [facility] [address] [id number] [address] [place] [address], [place] [address] 04 Jun, 2013 [facility] [address] [id number] [address] [place] [address], [place] [address] May, 2013 [facility] [address] [id number] [address] [place] [address], [place] [address] May, [facility] [address] [id number] [address] [place] [address], [place] [address] May, 2013 [facility] [address] [id number] [address] [place] [address], [place] [address] May, 2013 [facility] [address] [id number] [address] [place] [address], [place] [address] May, 2013 [facility] [address] [id number] [facility] [address] May, [facility] [address] [id number] [facility] [address] May, [facility] [address] [id number] [address] [place] [address], [place] [address] May, [facility] [address] [id number] [address] [place] [address], [place] [address] May, [facility] [address] [id number] [address] [place] [address], [place] [address] May, [facility] [address] [id number] [address] [place] [address], [place] [address] Apr, [facility] [address] [id number] [address] [place] [address], [place] [address] Apr, [facility] [address] [id number] [address] [place] [address], [place] [address] Apr, [facility] [address] [id number] [address] [place] [address], [place] [address] Apr, [facility] [address] [id number] [address] [place] [address], [place] [address] Apr, [facility] [address] [id number] [address] [place] [address], [place] [address] Apr, [facility] [address] [id number] [address] [place] [address], [place] [address] Apr, [facility] [address] [id number] [address] [place] [address], [place] [address] Apr, [facility] [address] [id number] [address] [place] [address], [place] [address] Apr, [facility] [address] [id number] [address] [place] [address], [place] [address] Apr, [facility] [address] [id number] [address] [place] [address], [place] [address] Mar, [facility] [address] [id number] [facility] [place] [address] Mar, [facility] [address] [id number] [facility] [place] [address] 25 Mar, 2014 [facility] [address] [id number] [facility] [address] 24 Mar, 2014 [facility] [address] [id number] [address] [place] [address], [place] [address] 20 Mar, 2014 [facility] [address] [id number] [address] [place] [address], [place] [address] 18 Mar, 2014 [facility] [address] [id number] [address] [place] [address], [place] [address] 18 Mar, 2014 [facility] [address] [id number] [address] [place] [address], [place] [address] 16 Mar, 2014 [facility] [address] [id number] [address] [place] [address], [place] [address] 16 Mar, 2014 [facility] [address] [id number] [address] [place] [address], [place] [address] 13 Mar, 2014 [facility] [address] [id number] [address] [place] [address], [place] [address] 13 Mar, 2014 [facility] [address] [id number] [address] [place] [address], [place] [address] 11 Mar, 2014 [facility] [address] [id number] [address] [place] [address], [place] [address] 11 Mar, 2014 [facility] [address] [id number] [address] [place] [address], [place] [address] 10 Mar, 2014 [facility] [address] [id number] [address] [place] [address], [place] [address] 09 Mar, 2014 [facility] [address] [id number] [address] [place] [address], [place] [address] 09 Mar, 2014 [facility] [address] [id number] [facility] [address] Mar, [facility] [address] [id number] [address] [place] [address], [place] [address] Mar, [facility] [address] [id number] [address] [place] [address], [place] [address] Mar, [facility] [address] [id number] [address] [place] [address], [place] [address] Mar, [facility] [address] [id number] [address] [place] [address], [place] [address] February, [facility] [address] [id number] [address] [place] [address], [place] [address] February, [facility] [address] [id number] [address] [place] [address], [place] [address] February, [facility] [address] [id number] [address] [place] [address], [place] [address] February, [facility] [address] [id number] [address] [place] [address], [place] [address] February, [facility] [address] [id number] [address] [place] [address], [place] [address] February, [facility] [address] [id number] [address] [place] [address], [place] [address] February, [facility] [address] [id number] [address] [place] [address], [place] [address] February, [facility] [address] [id number] [address] [place] [address], [place] [address] February, [facility] [address] [id number] [address] [place] [address], [place] [address] February, [facility] [address] [id number] [address] [place] [address], [place] [address] February, [facility] [address] [id number] [address] [place] [address], [place] [address] February, [facility] [address] [id number] [address] [place] [address], [place] [address] February, [facility] [address] [id number] [address] [place] [address], [place] [address] February, [facility] [address] [id number] [address] [place] [address], [place] [address] February, [facility] [address] [id number] [address] [place] [address], [place] [address] February, [facility] [address] [id number] [address] [place] [address], [place] [address] February, [facility] [address] [id number] [address] [place] [address], [place] [address] February, [facility] [address] [id number] [address] [place] [address], [place] [address] February, [facility] [address] [id number] [address] [place] [address], [place] [address] February, [facility] [address] [id number] [address] [place] [address], [place] [address] February, [facility] [address] [id number] [address] [place] [address], [place] [address] Jan, [facility] [address] [id number] [address] [place] [address], [place] [address] Jan, [facility] [address] [id number] [address] [place] [address], [place] [address] Jan, [facility] [address] [id number] [address] [place] [address], [place] [address] Jan, [facility] [address] [id number] [address] [place] [address], [place] [address] Jan, [facility] [address] [id number] [address] [place] [address], [place] [address] Jan, [facility] [address] [id number] [address] [place] [address], [place] [address] 10 Jan, 2014 [facility] [address] [id number] [facility] [place] [address] 10 Jan, 2014 [facility] [address] [id number] [address] [place] [address], [place] [address] 21 Dec, 2013 [facility] [address] [id number] [address] [place] [address], [place] [address] 20 Dec, 2013 [facility] [address] [id number] [address] [place] [address], [place] [address] 20 Dec, 2013 [facility] [address] [id number] [address] [place] [address], [place] [address] 19 Dec, 2013 [facility] [address] [id number] [address] [place] [address], [place] [address] 19 Dec, 2013 [facility] [address] [id number] [address] [place] [address], [place] [address] 15 Dec, 2013 [facility] [address] [id number] [address] [place] [address], [place] [address] 15 Dec, 2013 [facility] [address] [id number] [address] [place] [address], [place] [address] 11 Dec, 2013 [facility] [address] [id number] [address] [place] [address], [place] [address] 10 Dec, 2013 [facility] [address] [id number] [address] [place] [address], [place] [address] 10 Dec, 2013 [facility] [address] [id number] [address] [place] [address], [place] [address] 18 Nov, 2013 [facility] [address] [id number] [address] [place] [place] [address], [place] [address] 17 Nov, 2013 [facility] [address] [id number] [address] [place] [address], [place] [address] 17 Nov, 2013 [facility] [address] [id number] [address] [place] [address], [place] [address] 05 Nov, 2013 [facility] [address] [id number] [address] [place] [address], [place] [address] Nov, [facility] [address] [id number] [address] [place] [address], [place] [address] Oct, [facility] [address] [id number] [address] [place] [address], [place] [address] Oct, [facility] [address] [id number] [address] [place] [address], [place] [address] Oct, [facility] [address] [id number] [address] [place] [address], [place] [address] Sep, [facility] [address] [id number] [address] [place] [address], [place] [address] Sep, [facility] [address] [id number] [address] [place] [address], [place] [address] Sep, [facility] [address] [id number] [address] [place] [address], [place] [address] Sep, [facility] [address] [id number] [address] [place] [address], [place] [address] Aug, [facility] [address] [id number] [address] [place] [address], [place] [address] Aug, [facility] [address] [id number] [address] [place] [address], [place] [address] Jul, [facility] [address] [id number] [address] [place] [address], [place] [address] Jul, [facility] [address] [id number] [address] [place] [address], [place] [address] Jul, [facility] [address] [id number] [address] [place] [address], [place] [address] Jul, [facility] [address] [id number] [address] [place] [address], [place] [address] Jul, [facility] [address] [id number] [address] [place] [address], [place] [address] 25 Jun, 2013 [facility] [address] [id number] [address] [place] [address], [place] [address] 25 Jun, 2013 [facility] [address] [id number] [address] [place] [address], [place] [address] 19 Jun, 2013 [facility] [address] [id number] [address] [place] [address], [place] [address] 18 Jun, 2013 [facility] [address] [id number] [address] [place] [address], [place] [address] 16 Jun, 2013 [facility] [address] [id number] [address] [place] [address], [place] [address] 12 Jun, 2013 [facility] [address] [id number] [address] [place] [address], [place] [address] 11 Jun, 2013 [facility] [address] [id number] [address] [place] [address], [place] [address] May, [facility] [address] [id number] [address] [place] [address], [place] [address] May, [facility] [address] [id number] [address] [place] [address], [place] [address] Apr, [facility] [address] [id number] [address] [place] [address], [place] [address] Apr, [facility] [address] [id number] [address] [place] [address], [place] [address] Apr, [facility] [address] [id number] [address] [place] [address], [place] [address] Mar, [facility] [address] [id number] [address] [place] [address], [place] [address] Mar, [facility] [address] [id number] [address] [place] [address], [place] [address] February, [facility] [address] [id number] [address] [place] [address], [place] [address] February, [facility] [address] [id number] [address] [place] [address], [place] [address] February, [facility] [address] [id number] [address] [place] [address], [place] [address] February, [facility] [address] [id number] [address] [place] [address], [place] [address] Jan, [facility] [address] [id number] [address] [place] [address], [place] [address] Jan, [facility] [address] [id number] [address] [place] [address], [place] [address] 16 Jan, 2013 [facility] [address] [id number] [address] [place] [address], [place] [address] 29 Dec, 2012 [facility] [address] [id number] [address] [place] [address], [place] [address] Dec, [facility] [address] [id number] [address] [place] [address], [place] [address] Dec, [facility] [address] [id number] [address] [place] [address], [place] [address] 08 Dec, 2012 [facility] [address] [id number] [address] [place] [address], [place] [address] Nov, [facility] [address] [id number] [address] [place] [address], [place] [address] Nov, [facility] [address] [id number] [address] [place] [address], [place] [address] Oct, [facility] [address] [id number] [address] [place] [address], [place] [address] Oct, [facility] [address] [id number] [address] [place] [address], [place] [address] Oct, [facility] [address] [id number] [address] [place] [address], [place] [address] Oct, [facility] [address] [id number] [address] [place] [address], [place] [address] Aug, [facility] [address] [id number] [address] [place] [address], [place] [address] Aug, [facility] [address] [id number] [address] [place] [address], [place] [address] Jun, [facility] [address] [id number] [address] [place] [address], [place] [address] May, [facility] [address] [id number] [address] [place] [address], [place] [address] May, [facility] [address] [id number] [address] [place] [address], [place] [address] Apr, [facility] [address] [id number] [address] [place] [address], [place] [address] Apr, [facility] [address] [id number] [address] [place] [address], [place] [address] Apr, [facility] [address] [id number] [address] [place] [address], [place] [address] Mar, [facility] [address] [id number] [address] [place] [address], [place] [address] Mar, [facility] [address] [id number] [address] [place] [address], [place] [address] Mar, [facility] [address] [id number] [address] [place] [address], [place] [address] Mar, [facility] [address] [id number] [address] [place] [address], [place] [address] Mar, [facility] [address] [id number] [address] [place] [address], [place] [address] February, [facility] [address] [id number] [address] [place] [address], [place] [address] February, [facility] [address] [id number] [address] [place] [address], [place] [address] February, [facility] [address] [id number] [address] [place] [address] February, [facility] [address] [id number] [address] [place] [address], [place] [address] February, [facility] [address] [id number] [address] [place] [address], [place] [address] February, [facility] [address] [id number] [address] [place] [address], [place] [address] February, [facility] [address] [id number] [address] [place] [address], [place] [address] 25 Jan, 2012 [facility] [address] [id number] [address] [place] [address], [place] [address] 18 Jan, 2012 [facility] [address] [id number] [address] [place] [address], [place] [address] 17 Jan, 2012 [facility] [address] [id number] [address] [place] [address], [place] [address] Jan, [facility] [address] [id number] [address] [place] [address], [place] [address] Jan, [facility] [address] [id number] [address] [place] [address], [place] [address] 04 Jan, 2012 [facility] [address] [id number] [address] [place] [address], [place] [address] 30 Dec, 2011 [facility] [address] [id number] [address] [place] [address], [place] [address] 24 Dec, 2011 [facility] [address] [id number] [address] [place] [address], [place] [address] 20 Dec, 2011 [facility] [address] [id number] [address] [place] [address], [place] [address] 13 Dec, 2011 [facility] [address] [id number] [address] [place] [address], [place] [address] 06 Dec, 2011 [facility] [address] [id number] [address] [place] [address], [place] [address] 28 Nov, 2011 [facility] [address] [id number] [address] [place] [address], [place] [address] Nov, [facility] [address] [id number] [address] [place] [address], [place] [address] Nov, [facility] [address] [id number] [address] [place] [address], [place] [address] 14 Nov, 2011 [facility] [address] [id number] [address] [place] [address], [place] [address] Nov, [facility] [address] [id number] [address] [place] [address], [place] [address] Nov, [facility] [address] [id number] [address] [place] [address], [place] [address] Oct, [facility] [address] [id number] [address] [place] [address], [place] [address] Oct, [facility] [address] [id number] [address] [place] [address], [place] [address] Oct, [facility] [address] [id number] [address] [place] [address], [place] [address] Oct, [facility] [address] [id number] [address] [place] [address], [place] [address] Oct, [facility] [address] [id number] [address] [place] [address], [place] [address] Sep, [facility] [address] [id number] [address] [place] [address], [place] [address] Sep, [facility] [address] [id number] [address] [place] [address], [place] [address] Sep, [facility] [address] [id number] [address] [place] [address], [place] [address] Sep, [facility] [address] [id number] [address] [place] [address], [place] [address] Sep, [facility] [address] [id number] [address] [place] [address] Sep, [facility] [address] [id number] [address] [place] [address], [place] [address] Sep, [facility] [address] [id number] [address] [place] [address] Sep, [facility] [address] [id number] [address] [place] [address], [place] [address] Sep, [facility] [address] [id number] [address] [place] [address] Aug, [facility] [address] [id number] [address] [place] [address], [place] [address] Aug, [facility] [address] [id number] [address] [place] [address], [place] [address] Aug, [facility] [address] [id number] [address] [place] [address], [place] [address] Aug, [facility] [address] [id number] [address] [place] [address], [place] [address] Aug, [facility] [address] [id number] [address] [place] [address] Aug, [facility] [address] [id number] [address] [place] [address], [place] [address] Aug, [facility] [address] [id number] [address] [place] [address] Aug, [facility] [address] [id number] [address] [place] [address] Aug, [facility] [address] [id number] [address] [place] [address], [place] [address] Aug, [facility] [address] [id number] [address] [place] [address], [place] [address] Aug, [facility] [address] [id number] [address] [place] [address], [place] [address] Aug, [facility] [address] [id number] [address] [place] [address], [place] [address] Jul, [facility] [address] [id number] [address] [place] [address], [place] [address] Jul, [facility] [address] [id number] [address] [place] [address], [place] [address] Jul, [facility] [address] [id number] [address] [place] [address], [place] [address] Jul, [facility] [address] [id number] [address] [place] [address], [place] [address] Jul, [facility] [address] [id number] [address] [place] [address], [place] [address] Jul, [facility] [address] [id number] [address] [place] [address], [place] [address] Jul, [facility] [address] [id number] [address] [place] [address], [place] [address] Jul, [facility] [address] [id number] [address] [place] [address], [place] [address] Jul, [facility] [address] [id number] [address] [place] [address], [place] [address] Jul, [facility] [address] [id number] [address] [place] [address], [place] [address] Nov, [facility] [address] [id number] [address] [place] [address], [place] [address] Aug, [facility] [address] [id number] [address] [place] [address], [place] [address] Aug, [facility] [address] [id number] [address] [place] [address], [place] [address] Aug, [facility] [address] [id number] [address] [place] [address], [place] [address] Aug, [facility] [address] [id number] [address] [place] [address], [place] [address] Jul, IMMUNIZATIONS No Known Immunizations SOCIAL HISTORY Never Assessed REASON FOR VISIT EMR-[facility] PLAN OF CARE VITAL SIGNS MEDICATIONS Unknown [...] Suicide attempt by hanging 2015 Hospitalization History [facility] 01/30/2018-02/10/20 08 Hospitalization History [facility] 05/04/18-
--- OUTSIDE RECORDS SUMMARY | 2020-04-04 02:12 | XMS REPORT ---
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 Active 77596728 Problem Generalized anxiety disorder 300.02 A ctive 25254231 Problem Obsessive-compulsive disorders 300.3 Active 340475467 Problem Catatonic schizophrenia, 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 317773403 Problem Disorganized schizophrenia, 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 88895802 Problem Paranoid schizophrenia F20.0 Active 05036608 Problem Borderline personality disorder F60.3 Active 47677399 Problem Paranoid schizophrenia, unspecified condition 295.30 Active 24407769 Problem Schizoaffective disorder, depressive type F25.1 Active 09028179 Problem Bipolar disorder, unspecified 296.80 Active 94309240 Problem Schizoaffective disorder, unspecified F25.9 Active 88198119 Problem Attention deficit hyperactivity disorder (ADHD), inattentive type, 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 90825509 Problem Posttraumatic stress disorder F43.10 Active 35767301 Problem High risk medication use Z79.899 Activ e [id number] ALLERGIES No Information ENCOUNTERS Encounter Location Date Diagnosis [facility], [place] [address] [facility] [id number] [address] [place] [phone] Jan, [facility], [place] [address] [facility] [id number] [address] [place] [phone] Dec, Paranoid schizophrenia F20.0 ; Posttraumatic stress disorder F43.10 ; Attention deficit hyperactivity disorder (ADHD), inattentive type, 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 and Borderline personality disorder F60.3 [facility], [place] [address] [facility] [id number] [address] [place] [phone] Dec, Paranoid schizophrenia F20.0 ; Posttraumatic stress disorder F43.10 ; Attention deficit hyperactivity disorder (ADHD), inattentive type, 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 and Borderline personality disorder F60.3 [facility], [place] [address] [place] [id number] [address] [place] [phone] Oct, Paranoid schizophrenia F20.0 ; Posttraumatic stress disorder F43.10 ; Attention deficit hyperactivity disorder (ADHD), inattentive type, 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 and Borderline personality disorder F60.3 [facility], [place] [address] [place] [id number] [address] [place] [phone] Oct, Paranoid schizophrenia F20.0 ; Posttraumatic stress disorder F43.10 ; Attention deficit hyperactivity disorder (ADHD), inattentive type, 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 [address] [facility] [id number] [address] [place] [phone] Jul, Dry skin dermatitis L85.3 [facility], [place] [address] [facility] [id number] [address] [place] [phone] Jul, [facility] [place] [address] [facility] [id number] [address] [place] [phone] Jul, Paranoid schizophrenia F20.0 [facility], [place] [address] [facility] [id number] [address] [place] [phone] May, Paranoid schizophrenia F20.0 ; Posttraumatic stress disorder F43.10 ; Attention deficit hyperactivity disorder (ADHD), inattentive type, 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 and Borderline personality disorder F60.3 [facility] [place] [address] [facility] [id number] [address] [place] [phone] May, [facility], [place] [address] [id number] [place] [address] May, Paranoid schizophrenia F20.0 [facility], [place] [address] [id number] [address] [place] [address], [place] [address] May, Paranoid schizophrenia F20.0 ; Posttraumatic stress disorder F43.10 ; Attention deficit hyperactivity disorder (ADHD), inattentive type, 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 and Borderline personality disorder F60.3 [facility], [place] [address] [id number] [facility] [address] Apr, [facility], [place] [address] [id number] [address] [place] [address], [place] [address] Apr, Paranoid schizophrenia F20.0 ; Posttraumatic stress disorder F43.10 ; Attention deficit hyperactivity disorder (ADHD), inattentive type, 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 and Borderline personality disorder F60.3 [facility] [place] [address] [id number] [address] [place] [phone] Apr, [facility], [place] [address] [id number] [address] [place] [phone] Apr, Schizoaffective disorder, de pressive type F25.1 and Borderline personality disorder F60.3 [facility], [place] [address] [id number] [address] [place] [phone] Apr, Paranoid schizophrenia F20.0 ; Posttraumatic stress disorder F43.10 ; Attention deficit hyperactivity disorder (ADHD), inattentive type, 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 and Borderline personality disorder F60.3 [facility], [place] [address] [id number] [address] [place] [phone] Apr, [facility], [place] [address] [id number] [address] [place] [phone] Apr, Paranoid schizophrenia F20.0 ; Posttraumatic stress disorder F43.10 ; Attention deficit hyperactivity disorder (ADHD), inattentive type, 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 and Borderline personality disorder F60.3 [facility], [place] [address] [id number] [address] [place] [phone] Apr, [facility], [place] [address] [id number] [address] [place] [phone] Mar, Paranoid schizophrenia F20.0 [facility], [place] [address] [id number] [address] [place] [phone] Mar, [facility], [place] [address] [id number] [address] [place] [phone] Mar, Paranoid schizophrenia F20.0 ; Posttraumatic stress disorder F43.10 ; Attention deficit hyperactivity disorder (ADHD), inattentive type, 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 and Borderline personality disorder F60.3 [facility] [place] [address] [id number] [address] [place] [phone] February, Paranoid schizophrenia F20.0 [facility], [place] [address] [id number] [address] [place] [phone] February, Paranoid schizophrenia F20.0 ; Posttraumatic stress disorder F43.10 ; Attention deficit hyperactivity disorder (ADHD), inattentive type, 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 and Borderline personality disorder F60.3 [facility] [place] [address] [id number] [address] [place] [phone] February, Paranoid schizophrenia F20.0 ; Posttraumatic stress disorder F43.10 ; Attention deficit hyperactivity disorder (ADHD), inattentive type, 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 and Borderline personality disorder F60.3 [facility], [place] [address] [id number] [address] [place] [phone] February, [facility], [place] [address] [id number] [address] [place] [phone] February, Paranoid schizophrenia F20.0 [facility], [place] [address] [id number] [address] [place] [phone] February, Paranoid schizophrenia F20.0 [facility], [place] [address] [id number] [address] [place] [phone] February, Paranoid schizophrenia F20.0 ; Posttraumatic stress disorder F43.10 ; Attention deficit hyperactivity disorder (ADHD), inattentive type, 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 and Borderline personality disorder F60.3 [facility], [place] [address] [id number] [address] [place] [phone] Jan, Paranoid schizophrenia F20.0 ; Posttraumatic stress disorder F43.10 ; Attention deficit hyperactivity disorder (ADHD), inattentive type, 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 and Borderline personality disorder F60.3 [facility], [place] [address] [id number] [address] [place] [phone] Jan, Paranoid schizophrenia F20.0 [facility], [place] [address] [id number] [address] [place] [phone] Jan, Paranoid schizophrenia F20.0 [facility], [place] [address] [facility] [id number] [address] [place] [phone] Jan, Paranoid schizophrenia F20.0 ; Posttraumatic stress disorder F43.10 ; Attention deficit hyperactivity disorder (ADHD), inattentive type, 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 and Borderline personality disorder F60.3 [facility], [place] [address] [id number] [address] [place] [phone] Dec, [facility], [place] [address] [id number] [address] [place] [phone] Nov, Paranoid schizophrenia F20.0 ; Posttraumatic stress disorder F43.10 ; Attention deficit hyperactivity disorder (ADHD), inattentive type, 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 and Borderline personality disorder F60.3 [facility], [place] [address] [id number] [address] [place] [phone] Nov, [facility], [place] [address] [id number] [address] [place] [phone] Oct, Paranoid schizophrenia F20.0 [facility], [place] [address] [facility] [id number] [address] [place] [phone] Oct, Paranoid schizophrenia F20.0 ; Posttraumatic stress disorder F43.10 ; Attention deficit hyperactivity disorder (ADHD), inattentive type, 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 ; Borderline personality disorder F60.3 and Other fdc (current) drug therapy Z79.899 [facility], [place] [address] [id number] [address] [place] [phone] Oct, [facility], [place] [address] [facility] [id number] [address] [place] [phone] Oct, [facility], [place] [address] [id number] [address] [place] [phone] Sep, [facility], [place] [address] [id number] [address] [place] [phone] Sep, Paranoid schizophrenia F20.0 ; Posttraumatic stress disorder F43.10 ; Attention deficit hyperactivity disorder (ADHD), inattentive type, 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 and Borderline personality disorder F60.3 [facility], [place] [address] [facility] [id number] [address] [place] [phone] Sep, Paranoid schizophrenia F20.0 [facility], [place] [address] [id number] [address] [place] [phone] Aug, Paranoid schizophrenia F20.0 ; Posttraumatic stress disorder F43.10 ; Attention deficit hyperactivity disorder (ADHD), inattentive type, 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 and Borderline personality disorder F60.3 [facility] [place] [address] [facility] [id number] [address] [place] [phone] Aug, Paranoid schizophrenia F20.0 ; Posttraumatic stress disorder F43.10 ; Attention deficit hyperactivity disorder (ADHD), inattentive type, 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 and Borderline personality disorder F60.3 [facility], [place] [address] [id number] [address] [place] [phone] Aug, [facility], [place] [address] [facility] [id number] [address] [place] [phone] Jul, Paranoid schizophrenia F20.0 ; Posttraumatic stress disorder F43.10 ; Attention deficit hyperactivity disorder (ADHD), inattentive type, 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 and Borderline personality disorder F60.3 [facility] [place] [address] [id number] [address] [place] [phone] Jul, Paranoid schizophrenia F20.0 [facility], [place] [address] [id number] [address] [place] [phone] Jul, Paranoid schizophrenia F20.0 ; Posttraumatic stress disorder F43.10 ; Attention deficit hyperactivity disorder (ADHD), inattentive type, 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 and Borderline personality disorder F60.3 [facility] [place] [address] [id number] [address] [place] [phone] Jun, Paranoid schizophrenia F20.0 ; Posttraumatic stress disorder F43.10 ; Attention deficit hyperactivity disorder (ADHD), inattentive type, 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 and Borderline personality disorder F60.3 [facility] [place] [address] [id number] [address] [place] [phone] May, Other fdc (current) dr ug therapy Z79.899 [facility], [place] [address] [id number] [address] [place] [phone] May, [facility], [place] [address] [id number] [address] [place] [phone] May, [facility], [place] [address] [facility] [id number] [address] [place] [phone] May, Attention deficit hyperactiv ity disorder (ADHD), inattentive type, mild F90.0 [facility], [place] [address] [facility] [id number] [address] [place] [phone] May, [facility], [place] [address] [id number] [address] [place] [phone] May, Attention deficit hyperactiv ity disorder (ADHD), inattentive type, mild F90.0 [facility], [place] [address] [id number] [address] [place] [phone] May, Paranoid schizophrenia F20.0 ; Posttraumatic stress disorder F43.10 ; Attention deficit hyperactivity disorder (ADHD), inattentive type, 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 and Other fdc (current) drug therapy Z79.899 [facility] [place] [address] [id number] [address] [place] [phone] Apr, Paranoid schizophrenia F20.0 [facility], [place] [address] [id number] [address] [place] [phone] Apr, Paranoid schizophrenia F20.0 ; Posttraumatic stress disorder F43.10 and Attention deficit hyperactivity disorder (ADHD), inattentive type, 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 [facility], [place] [address] [id number] [address] [place] [phone] February, [facility], [place] [address] [id number] [address] [place] [phone] February, Paranoid schizophrenia F20.0 ; Posttraumatic stress disorder F43.10 and Attention deficit hyperactivity disorder (ADHD), inattentive type, 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 [facility] [place] [address] [id number] [address] [place] [phone] February, Paranoid schizophrenia F20.0 ; Posttraumatic stress disorder F43.10 and Attention deficit hyperactivity disorder (ADHD), inattentive type, 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 [facility] [place] [address] [id number] [address] [place] [phone] Jan, Paranoid schizophrenia F20.0 ; Posttraumatic stress disorder F43.10 and Attention deficit hyperactivity disorder (ADHD), inattentive type, 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 [facility] [address] [id number] [address] [place] [id number] Dec, Dental examination Z01.20 [facility] [address] [id number] [address] [place] [id number] Nov, Dental examination Z01.20 [facility] [address] [id number] [address] [place] [id number] Nov, Dental examination Z01.20 [facility] [address] [id number] [address] [place] [address] [id number] Nov, Dental caries K02.9 [facility] [place] [address] [id number] [address] [place] [phone] Nov, High risk medication use Z79 .899 [facility] [place] [address] [id number] [address] [place] [phone] Nov, Paranoid schizophrenia F20.0 ; Posttraumatic stress disorder F43.10 ; Attention deficit hyperactivity disorder (ADHD), inattentive type, 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 and Borderline personality disorder in adult F60.3 [facility] [address] [id number] [address] [place] [id number] Oct, Dental caries K02.9 [facility] [place] [address] [id number] [address] [place] [phone] Sep, Paranoid schizophrenia F20.0 ; Posttraumatic stress disorder F43.10 and Attention deficit hyperactivity disorder (ADHD), inattentive type, 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 [facility] [place] [address] [id number] [address] [place] [phone] Aug, Paranoid schizophrenia F20.0 ; Posttraumatic stress disorder F43.10 and Attention deficit hyperactivity disorder (ADHD), inattentive type, 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 [facility] [address] [id number] [address] [place] [phone] Aug, Strep throat J02.0 and Cough R05 [facility] [place] [address] [id number] [address] [place] [phone] Aug, [facility] [place] [address] [id number] [address] [place] [phone] 24 Jul, 2016 Paranoid schizophrenia F20.0 ; Posttraumatic stress disorder F43.10 and Attention deficit hyperactivity disorder (ADHD), inattentive type, 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 [facility] [place] [address] [id number] [address] [place] [phone] Jul, [facility] [place] [address] [id number] [address] [place] [phone] Jun, Paranoid schizophrenia F20.0 ; Posttraumatic stress disorder F43.10 and Attention deficit hyperactivity disorder (ADHD), inattentive type, 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 [facility] [address] [id number] [address] [place] [id number] Jun, Dental examination Z01.20 [facility] [place] [address] [id number] [address] [place] [phone] Jun, [facility] [place] [address] [id number] [address] [place] [phone] May, Paranoid schizophrenia F20.0 [facility] [place] [address] [id number] [address] [place] [phone] May, Paranoid schizophrenia F20.0 ; Posttraumatic stress disorder F43.10 and Attention deficit hyperactivity disorder (ADHD), inattentive type, 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 [facility] [place] [address] [id number] [address] [place] [phone] May, [facility] [place] [address] [id number] [address] [place] [phone] May, Paranoid schizophrenia F20.0 [facility] [place] [address] [id number] [address] [place] [phone] May, [facility] [place] [address] [id number] [address] [place] [phone] May, Paranoid schizophrenia F20.0 [facility] [place] [address] [id number] [address] [place] [phone] May, Schizoaffective disorder, un specified F25.9 [facility] [place] [address] [id number] [address] [place] [phone] May, Schizoaffective disorder, un specified F25.9 [facility] [place] [address] [id number] [address] [place] [phone] May, [facility] [place] [address] [id number] [address] [place] [phone] May, Paranoid schizophrenia F20.0 [facility] [place] [address] [id number] [address] [place] [phone] May, Paranoid schizophrenia F20.0 ; Posttraumatic stress disorder F43.10 and Attention deficit hyperactivity disorder (ADHD), inattentive type, 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 [facility] [place] [address] [id number] [address] [place] [address], [place] [phone] Mar, [facility] [address] [id number] [facility] [address] Mar, Paranoid schizophrenia F20.0 ; Posttraumatic stress disorder F43.10 and Attention deficit hyperactivity disorder (ADHD), inattentive type, 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 [facility] [place] [address] [id number] [address] [place] [address], [place] [address] Mar, Paranoid schizophrenia F20.0 [facility] [place] [address] [id number] [address] [place] [address], [place] [phone] Mar, Paranoid schizophrenia F20.0 ; Attention deficit hyperactivity disorder (ADHD), inattentive type, 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 and Posttraumatic stress disorder F43.10 [facility], [place] [address] [id number] [address] [place] [id number] Mar, [facility] [address] [id number] [address] [place] [address], [place] [id number] Mar, Paranoid schizophrenia F20.0 ; Posttraumatic stress disorder F43.10 and Attention deficit hyperactivity disorder (ADHD), inattentive type, 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 [facility] [place] [address] [id number] [address] [place] [address], [place] [id number] February, [facility] [place] [address] [id number] [address] [place] [phone] February, [facility] [place] [address] [id number] [address] [place] [address], [place] [id number] February, [facility] [place] [address] [id number] [address] [place] [id number] February, [facility] [place] [address] [id number] [address] [place] [address], [place] [id number] Jan, Paranoid schizophrenia F20.0 [facility] [address] [id number] [address] [place] [id number] Jan, Dental examination Z01.20 [facility] [address] [id number] [address] [place] [id number] Jan, Dental caries K02.9 [facility] [address] [id number] [address] [place] [id number] Jan, Dental examination Z01.20 [facility] [address] [id number] [address] [place] [id number] Dec, Encounter for dental examina tion Z01.20 [facility], [place] [address] [id number] [address] [place] [phone] Dec, Paranoid schizophrenia F20.0 [facility] [address] [id number] [address] [place] [id number] Dec, Dental examination Z01.20 [facility], [place] [address] [id number] [address] [place] [id number] Dec, [facility] [place] [address] [id number] [address] [place] [phone] Dec, Paranoid schizophrenia F20.0 ; Posttraumatic stress disorder F43.10 and Attention deficit hyperactivity disorder (ADHD), inattentive type, 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 [facility] [place] [address] [id number] [address] [place] [phone] Nov, Schizoaffective disorder, un specified F25.9 [facility] [place] [address] [id number] [address] [place] [phone] Oct, Paranoid schizophrenia F20.0 [facility], [place] [address] [id number] [address] [place] [phone] Oct, [facility] [place] [address] [id number] [address] [place] [phone] Sep, Paranoid schizophrenia F20.0 ; Posttraumatic stress disorder F43.10 and Attention deficit hyperactivity disorder (ADHD), inattentive type, 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 [facility] [place] [address] [id number] [address] [place] [phone] Sep, [facility] [place] [address] [facility] [id number] [address] [place], [place] [address] Sep, Paranoid schizophrenia F20.0 ; Posttraumatic stress disorder F43.10 and Attention deficit hyperactivity disorder (ADHD), inattentive type, 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 [facility] [place] [address] [facility] [id number] [address] [place] [phone] Aug, Paranoid schizophrenia F20.0 [facility], [place] [address] [facility] [id number] [address] [place] [phone] Aug, [facility] [place] [address] [facility] [id number] [address] [place] [phone] Aug, Posttraumatic stress disorde r F43.10 ; Paranoid schizophrenia F20.0 and Attention deficit hyperactivity disorder (ADHD), inattentive type, 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 [facility] [place] [address] [facility] [id number] [address] [place] [phone] Jul, Bipolar disorder, unspecifie d F31.9 [facility], [place] [address] [facility] [id number] [address] [place] [phone] Jul, [facility] [place] [address] [facility] [id number] [address] [place] [phone] Jun, [facility], [place] [address] [facility] [id number] [address] [place] [phone] Jun, Schizoaffective disorder, ch ronic 295.72 ; Posttraumatic stress disorder 309.81 and Attention deficit disorder of childhood without mention of hyperactivity 314.00 [facility], [place] [address] [facility] [id number] [address] [place] [phone] May, [facility], [place] [address] [facility] [id number] [address] [place] [phone] May, [facility], [place] [address] [facility] [id number] [address] [place] [phone] May, Schizoaffective disorder, ch ronic 295.72 ; Posttraumatic stress disorder 309.81 ; Attention deficit disorder of childhood without mention of hyperactivity 314.00 and Bipolar disorder, unspecified 296.80 [facility] [place] [address] [facility] [id number] [address] [place] [phone] Apr, Schizoaffective disorder, ch ronic 295.72 [facility] [place] [address] [facility] [id number] [address] [place] [phone] Apr, [facility], [place] [address] [id number] [address] [place] [phone] Apr, Schizoaffective disorder, ch ronic 295.72 ; Posttraumatic stress disorder 309.81 and Attention deficit disorder of childhood without mention of hyperactivity 314.00 [facility], [place] [address] [facility] [id number] [address] [place] [phone] Mar, Disorganized schizophrenia, 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 [facility], [place] [address] [facility] [id number] [address] [place] [phone] Mar, [facility], [place] [address] [facility] [id number] [address] [place] [phone] Mar, [facility], [place] [address] [facility] [id number] [address] [place] [phone] Mar, [facility] [place] [address] [facility] [id number] [address] [place] [phone] Mar, [facility], [place] [address] [facility] [id number] [address] [place] [phone] February, Schizoaffective disorder, ch ronic 295.72 [facility], [place] [address] [facility] [id number] [address] [place] [phone] February, [facility], [place] [address] [facility] [id number] [address] [place] [phone] February, Attention 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 ; Posttraumatic stress disorder 309.81 and Schizoaffective disorder, chronic 295.72 [facility] [address] [id number] [address] [place] [address], [place] [address] 29 Jan, 2015 [facility] [address] [id number] [address] [place] [address], [place] [address] 14 Jan, 2015 [facility] [address] [id number] [address] [place] [address], [place] [address] Jan, [facility] [address] [id number] [address] [place] [address], [place] [address] Dec, [facility] [address] [id number] [address] [place] [address], [place] [address] Dec, [facility] [address] [id number] [address] [place] [address], [place] [address] Dec, [facility] [address] [id number] [address] [place] [address], [place] [address] Dec, [facility] [address] [id number] [address] [place] [address], [place] [address] Dec, [facility] [address] [id number] [address] [place] [address], [place] [address] Dec, [facility] [address] [id number] [address] [place] [address], [place] [address] Dec, [facility] [address] [id number] [address] [place] [address], [place] [address] Dec, [facility] [address] [id number] [address] [place] [address], [place] [address] Nov, [facility] [address] [id number] [address] [place] [address], [place] [address] Nov, [facility] [address] [id number] [address] [place] [address], [place] [address] Nov, [facility] [address] [id number] [address] [place] [address], [place] [address] Nov, [facility] [address] [id number] [address] [place] [address], [place] [address] Nov, [facility] [address] [id number] [address] [place] [address], [place] [address] Nov, [facility] [address] [id number] [address] [place] [address], [place] [address] Nov, [facility] [address] [id number] [address] [place] [address], [place] [address] Nov, [facility] [address] [id number] [address] [place] [address], [place] [address] Nov, [facility] [address] [id number] [address] [place] [address], [place] [address] Nov, [facility] [address] [id number] [address] [place] [address], [place] [address] Oct, [facility] [address] [id number] [address] [place] [address], [place] [address] Oct, [facility] [address] [id number] [address] [place] [address], [place] [address] Oct, [facility] [address] [id number] [address] [place] [address], [place] [address] Oct, [facility] [address] [id number] [address] [place] [address], [place] [address] Oct, [facility] [address] [id number] [address] [place] [address], [place] [address] Oct, [facility] [address] [id number] [address] [place] [address], [place] [address] Oct, [facility] [address] [id number] [address] [place] [address], [place] [address] Sep, [facility] [address] [id number] [address] [place] [address], [place] [address] Sep, [facility] [address] [id number] [address] [place] [address], [place] [address] Sep, [facility] [address] [id number] [address] [place] [address], [place] [address] 15 Sep, 2014 [facility] [address] [id number] [address] [place] [address], [place] [address] Aug, [facility] [address] [id number] [address] [place] [address], [place] [address] Aug, [facility] [address] [id number] [address] [place] [address], [place] [address] Aug, [facility] [address] [id number] [address] [place] [address], [place] [address] Aug, [facility] [address] [id number] [address] [place] [address], [place] [address] Aug, [facility] [address] [id number] [address] [place] [address], [place] [address] Aug, [facility] [address] [id number] [address] [place] [address], [place] [address] Jul, [facility] [address] [id number] [address] [place] [address], [place] [address] 29 Jul, 2014 [facility] [address] [id number] [address] [place] [address], [place] [address] 24 Jul, 2014 [facility] [address] [id number] [address] [place] [address], [place] [address] 24 Jul, 2014 [facility] [address] [id number] [address] [place] [address], [place] [address] 15 Jul, 2014 [facility] [address] [id number] [address] [place] [address], [place] [address] 15 Jul, 2014 [facility] [address] [id number] [address] [place] [address], [place] [address] 27 Jun, 2014 [facility] [address] [id number] [address] [place] [address], [place] [address] 27 Jun, 2014 [facility] [address] [id number] [address] [place] [address], [place] [address] Jun, 2013 [facility] [address] [id number] [facility] [address] 26 Jun, 2013 [facility] [address] [id number] [facility] [address] Jun, 2013 [facility] [address] [id number] [address] [place] [address], [place] [address] Jun, 2013 [facility] [address] [id number] [address] [place] [address], [place] [address] 16 Jun, 2013 [facility] [address] [id number] [address] [place] [address], [place] [address] 16 Jun, 2013 [facility] [address] [id number] [address] [place] [address], [place] [address] Jun, 2013 [facility] [address] [id number] [address] [place] [address], [place] [address] Jun, 2013 [facility] [address] [id number] [address] [place] [address], [place] [address] Jun, [facility] [address] [id number] [address] [place] [address], [place] [address] May, [facility] [address] [id number] [address] [place] [address], [place] [address] May, [facility] [address] [id number] [address] [place] [address], [place] [address] May, [facility] [address] [id number] [address] [place] [address], [place] [address] May, [facility] [address] [id number] [address] [place] [address], [place] [address] May, [facility] [address] [id number] [address] [place] [address], [place] [address] May, [facility] [address] [id number] [address] [place] [address], [place] [address] May, [facility] [address] [id number] [address] [place] [address], [place] [address] May, [facility] [address] [id number] [address] [place] [address], [place] [address] May, [facility] [address] [id number] [address] [place] [address], [place] [address] May, [facility] [address] [id number] [address] [place] [address], [place] [address] Apr, [facility] [address] [id number] [address] [place] [address], [place] [address] Apr, [facility] [address] [id number] [address] [place] [address], [place] [address] Apr, [facility] [address] [id number] [address] [place] [address], [place] [address] Apr, [facility] [address] [id number] [address] [place] [address], [place] [address] Apr, [facility] [address] [id number] [address] [place] [address], [place] [address] Apr, [facility] [address] [id number] [address] [place] [address], [place] [address] Apr, [facility] [address] [id number] [address] [place] [address], [place] [address] Apr, [facility] [address] [id number] [address] [place] [address], [place] [address] Apr, [facility] [address] [id number] [address] [place] [address], [place] [address] Apr, [facility] [address] [id number] [address] [place] [address], [place] [address] Mar, [facility] [address] [id number] [address] [place] [address], [place] [address] Mar, [facility] [address] [id number] [address] [place] [address], [place] [address] Mar, [facility] [address] [id number] [address] [place] [address], [place] [address] Mar, [facility] [address] [id number] [address] [place] [address], [place] [address] Mar, [facility] [address] [id number] [address] [place] [address], [place] [address] Mar, [facility] [address] [id number] [address] [place] [address], [place] [address] Mar, [facility] [address] [id number] [address] [place] [address], [place] [address] Mar, [facility] [address] [id number] [address] [place] [address], [place] [address] Mar, [facility] [address] [id number] [address] [place] [address], [place] [address] Mar, [facility] [address] [id number] [address] [place] [address], [place] [address] Mar, [facility] [address] [id number] [address] [place] [address], [place] [address] Mar, [facility] [address] [id number] [address] [place] [address], [place] [address] Mar, [facility] [address] [id number] [address] [place] [address], [place] [address] Mar, [facility] [address] [id number] [address] [place] [address], [place] [address] Mar, [facility] [address] [id number] [address] [place] [address], [place] [address] Mar, [facility] [address] [id number] [address] [place] [address], [place] [address] Mar, [facility] [address] [id number] [address] [place] [address], [place] [address] 09 Mar, 2014 [facility] [address] [id number] [address] [place] [address], [place] [address] Mar, [facility] [address] [id number] [facility] [address] Mar, [facility] [address] [id number] [address] [place] [address], [place] [address] February, [facility] [address] [id number] [address] [place] [address], [place] [address] February, [facility] [address] [id number] [address] [place] [address], [place] [address] February, [facility] [address] [id number] [address] [place] [address], [place] [address] February, [facility] [address] [id number] [address] [place] [address], [place] [address] February, [facility] [address] [id number] [address] [place] [address], [place] [address] February, [facility] [address] [id number] [address] [place] [address], [place] [address] February, [facility] [address] [id number] [address] [place] [address], [place] [address] February, [facility] [address] [id number] [address] [place] [address], [place] [address] February, [facility] [address] [id number] [address] [place] [address], [place] [address] February, [facility] [address] [id number] [address] [place] [address], [place] [address] February, [facility] [address] [id number] [address] [place] [address], [place] [address] February, [facility] [address] [id number] [address] [place] [address], [place] [address] February, [facility] [address] [id number] [address] [place] [address], [place] [address] February, [facility] [address] [id number] [address] [place] [address], [place] [address] February, [facility] [address] [id number] [address] [place] [address], [place] [address] February, [facility] [address] [id number] [address] [place] [address], [place] [address] February, [facility] [address] [id number] [address] [place] [address], [place] [address] February, [facility] [address] [id number] [address] [place] [address], [place] [address] February, [facility] [address] [id number] [address] [place] [address], [place] [address] February, [facility] [address] [id number] [address] [place] [address], [place] [address] February, [facility] [address] [id number] [address] [place] [address], [place] [address] Jan, [facility] [address] [id number] [address] [place] [address], [place] [address] Jan, [facility] [address] [id number] [address] [place] [address], [place] [address] Jan, [facility] [address] [id number] [address] [place] [address], [place] [address] Jan, [facility] [address] [id number] [address] [place] [address], [place] [address] Jan, [facility] [address] [id number] [address] [place] [address], [place] [address] Jan, [facility] [address] [id number] [address] [place] [address], [place] [address] Jan, [facility] [address] [id number] [address] [place] [address], [place] [address] Jan, [facility] [address] [id number] [address] [place] [address], [place] [address] Dec, [facility] [address] [id number] [facility] [address] 20 Dec, 2013 [facility] [address] [id number] [facility] [address] 20 Dec, 2013 [facility] [address] [id number] [facility] [address] 19 Dec, 2013 [facility] [address] [id number] [address] [place] [address], [place] [address] 19 Dec, 2013 [facility] [address] [id number] [address] [place] [address], [place] [address] 15 Dec, 2013 [facility] [address] [id number] [address] [place] [address], [place] [address] 15 Dec, 2013 [facility] [address] [id number] [address] [place] [address], [place] [address] 11 Dec, 2013 [facility] [place] [facility] [address] [id number] [address] [place] [address], [place] [address] 10 Dec, 2013 [facility] [place] [facility] [address] [id number] [address] [place] [address], [place] [address] 10 Dec, 2013 [facility] [address] [id number] [address] [place] [address], [place] [address] 18 Nov, 2013 [facility] [address] [id number] [address] [place] [address], [place] [address] 17 Nov, 2013 [facility] [address] [id number] [address] [place] [address], [place] [address] Nov, [facility] [address] [id number] [address] [place] [address], [place] [address] 05 Nov, 2013 [facility] [place] [facility] [address] [id number] [address] [place] [address], [place] [address] 05 Nov, 2013 [facility] [place] [facility] [address] [id number] [address] [place] [address], [place] [address] Oct, [facility] [place] [facility] [address] [id number] [address] [place] [address] Oct, [facility] [address] [id number] [address] [place] [address], [place] [address] Oct, [facility] [address] [id number] [address] [place] [address], [place] [address] Sep, [facility] [address] [id number] [address] [place] [address], [place] [address] Sep, [facility] [address] [id number] [address] [place] [address], [place] [address] Sep, [facility] [address] [id number] [address] [place] [address], [place] [address] Sep, [facility] [address] [id number] [address] [place] [address], [place] [address] Aug, [facility] [address] [id number] [address] [place] [address], [place] [address] Aug, [facility] [address] [id number] [address] [place] [address], [place] [address] Jul, [facility] [address] [id number] [address] [place] [address], [place] [address] Jul, [facility] [address] [id number] [address] [place] [address], [place] [address] Jul, [facility] [address] [id number] [address] [place] [address], [place] [address] Jul, [facility] [address] [id number] [address] [place] [address], [place] [address] Jul, [facility] [address] [id number] [address] [place] [address], [place] [address] Jun, [facility] [address] [id number] [address] [place] [address], [place] [address] Jun, [facility] [address] [id number] [address] [place] [address], [place] [address] 19 Jun, 2013 [facility] [address] [id number] [address] [place] [address], [place] [address] 18 Jun, 2013 [facility] [address] [id number] [address] [place] [address], [place] [address] 16 Jun, 2013 [facility] [address] [id number] [address] [place] [address], [place] [address] 12 Jun, 2013 [facility] [address] [id number] [address] [place] [address], [place] [address] 11 Jun, 2013 [facility] [address] [id number] [address] [place] [address], [place] [address] 30 May, 2013 [facility] [address] [id number] [address] [place] [address], [place] [address] May, [facility] [address] [id number] [address] [place] [address], [place] [address] Apr, [facility] [address] [id number] [address] [place] [address], [place] [address] Apr, [facility] [address] [id number] [address] [place] [address], [place] [address] Apr, [facility] [address] [id number] [address] [place] [address], [place] [address] Mar, [facility] [address] [id number] [address] [place] [address], [place] [address] Mar, [facility] [address] [id number] [address] [place] [address], [place] [address] February, [facility] [address] [id number] [address] [place] [address], [place] [address] February, [facility] [address] [id number] [address] [place] [address], [place] [address] February, [facility] [address] [id number] [address] [place] [address], [place] [address] February, [facility] [address] [id number] [address] [place] [address], [place] [address] 19 Jan, 2013 [facility] [address] [id number] [address] [place] [address], [place] [address] 17 Jan, 2013 [facility] [address] [id number] [address] [place] [address], [place] [address] 16 Jan, 2013 [facility] [address] [id number] [address] [place] [address], [place] [address] 29 Dec, 2012 [facility] [address] [id number] [address] [place] [address], [place] [address] Dec, [facility] [address] [id number] [address] [place] [address], [place] [address] Dec, [facility] [address] [id number] [address] [place] [address], [place] [address] 08 Dec, 2012 [facility] [address] [id number] [address] [place] [address], [place] [address] Nov, [facility] [address] [id number] [address] [place] [address], [place] [address] Nov, [facility] [address] [id number] [address] [place] [address], [place] [address] Oct, [facility] [address] [id number] [address] [place] [address], [place] [address] Oct, [facility] [address] [id number] [address] [place] [address], [place] [address] Oct, [facility] [address] [id number] [address] [place] [address], [place] [address] Oct, [facility] [address] [id number] [address] [place] [address], [place] [address] Aug, [facility] [address] [id number] [address] [place] [address], [place] [address] Aug, [facility] [address] [id number] [address] [place] [address], [place] [address] 18 Jun, 2012 [facility] [address] [id number] [facility] [address] May, [facility] [address] [id number] [address] [place] [address], [place] [address] May, [facility] [address] [id number] [address] [place] [address], [place] [address] Apr, [facility] [address] [id number] [address] [place] [address], [place] [address] Apr, [facility] [address] [id number] [address] [place] [address], [place] [address] Apr, [facility] [address] [id number] [address] [place] [address], [place] [address] Mar, [facility] [address] [id number] [address] [place] [address], [place] [address] Mar, [facility] [address] [id number] [address] [place] [address], [place] [address] Mar, [facility] [address] [id number] [address] [place] [address], [place] [address] Mar, [facility] [address] [id number] [address] [place] [address], [place] [address] Mar, [facility] [address] [id number] [address] [place] [address], [place] [address] February, [facility] [address] [id number] [address] [place] [address], [place] [address] February, [facility] [address] [id number] [address] [place] [address], [place] [address] February, [facility] [address] [id number] [address] [place] [address], [place] [address] February, [facility] [address] [id number] [address] [place] [address], [place] [address] February, [facility] [address] [id number] [address] [place] [address], [place] [address] February, [facility] [address] [id number] [address] [place] [address], [place] [address] February, [facility] [address] [id number] [address] [place] [address], [place] [address] Jan, [facility] [address] [id number] [address] [place] [address], [place] [address] Jan, [facility] [address] [id number] [address] [place] [address], [place] [address] 17 Jan, 2012 [facility] [address] [id number] [address] [place] [address], [place] [address] Jan, [facility] [address] [id number] [address] [place] [address], [place] [address] Jan, [facility] [address] [id number] [address] [place] [address], [place] [address] Jan, [facility] [address] [id number] [address] [place] [address], [place] [address] 30 Dec, 2011 [facility] [address] [id number] [address] [place] [address], [place] [address] 24 Dec, 2011 [facility] [address] [id number] [address] [place] [address], [place] [address] Dec, [facility] [address] [id number] [address] [place] [address], [place] [address] Dec, [facility] [address] [id number] [address] [place] [address], [place] [address] Dec, [facility] [address] [id number] [address] [place] [address], [place] [address] Nov, [facility] [address] [id number] [address] [place] [address], [place] [address] Nov, [facility] [address] [id number] [address] [place] [address], [place] [address] Nov, [facility] [address] [id number] [address] [place] [address], [place] [address] 14 Nov, 2011 [facility] [address] [id number] [address] [place] [address], [place] [address] 10 Nov, 2011 [facility] [address] [id number] [address] [place] [address], [place] [address] Nov, [facility] [address] [id number] [address] [place] [address], [place] [address] Oct, [facility] [address] [id number] [address] [place] [address], [place] [address] Oct, [facility] [address] [id number] [address] [place] [address], [place] [address] Oct, [facility] [address] [id number] [address] [place] [address], [place] [address] Oct, [facility] [address] [id number] [address] [place] [address], [place] [address] Oct, [facility] [address] [id number] [address] [place] [address], [place] [address] Sep, [facility] [address] [id number] [address] [place] [address], [place] [address] Sep, [facility] [address] [id number] [address] [place] [address], [place] [address] Sep, [facility] [address] [id number] [address] [place] [address], [place] [address] 14 Sep, 2011 [facility] [address] [id number] [address] [place] [address], [place] [address] 14 Sep, 2011 [facility] [address] [id number] [address] [place] [address], [place] [address] 13 Sep, 2011 [facility] [address] [id number] [address] [place] [address], [place] [address] 12 Sep, 2011 [facility] [address] [id number] [address] [place] [address], [place] [address] Sep, [facility] [address] [id number] [address] [place] [address], [place] [address] Sep, [facility] [address] [id number] [address] [place] [address], [place] [address] Aug, [facility] [address] [id number] [address] [place] [address], [place] [address] Aug, [facility] [address] [id number] [address] [place] [address], [place] [address] Aug, [facility] [address] [id number] [address] [place] [address], [place] [address] Aug, [facility] [address] [id number] [address] [place] [address], [place] [address] Aug, [facility] [address] [id number] [address] [place] [address], [place] [address] Aug, [facility] [address] [id number] [address] [place] [address], [place] [address] Aug, [facility] [address] [id number] [address] [place] [address], [place] [address] Aug, [facility] [address] [id number] [address] [place] [address], [place] [address] Aug, [facility] [address] [id number] [address] [place] [address], [place] [address] Aug, [facility] [address] [id number] [address] [place] [address], [place] [address] Aug, [facility] [address] [id number] [address] [place] [address], [place] [address] Aug, [facility] [address] [id number] [address] [place] [address], [place] [address] Jul, [facility] [address] [id number] [address] [place] [address], [place] [address] Jul, [facility] [address] [id number] [address] [place] [address] Jul, [facility] [place] [address] [id number] [address] [place] [address] Jul, [facility] [place] [address] [id number] [address] [place] [address] Jul, [facility] [place] [address] [id number] [address] [place] [id number] Jul, [facility] [place] [address] [id number] [address] [place] [id number] Jul, [facility] [place] [address] [id number] [address] [place] [address] Jul, [facility] [place] [address] [id number] [address] [place] [address] Jul, [facility] [place] [address] [id number] [address] [place] [address] Jul, [facility] [place] [address] [id number] [address] [place] [id number] Nov, [facility] [place] [address] [id number] [address] [place] [id number] Aug, [facility] [place] [address] [id number] [address] [place] [id number] Aug, [facility] [place] [address] [id number] [address] [place] [address] Aug, [facility] [place] [address] [id number] [address] [place] [id number] Aug, [facility] [place] [address] [id number] [address] [place] [id number] Jul, IMMUNIZATIONS No Known Immunizations SOCIAL HISTORY Never Assessed REASON FOR VISIT EMR-[facility] [place] PLAN OF CARE VITAL SIGNS MEDICATIONS Unknown [...]
--- OUTSIDE RECORDS SUMMARY | 2020-04-04 02:12 | XMS REPORT ---
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 Active 66655507 Problem Generalized anxiety disorder 300.02 A ctive 18493068 Problem Obsessive-compulsive disorders 300.3 Active 963652354 Problem Catatonic schizophrenia, 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 348725784 Problem Disorganized schizophrenia, 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 03383713 Problem Paranoid schizophrenia F20.0 Active 70067099 Problem Borderline personality disorder F60.3 Active 05553941 Problem Paranoid schizophrenia, unspecified condition 295.30 Active 25857294 Problem Schizoaffective disorder, depressive type F25.1 Active 57121051 Problem Bipolar disorder, unspecified 296.80 Active 25017250 Problem Schizoaffective disorder, unspecified F25.9 Active 06513223 Problem Attention deficit hyperactivity disorder (ADHD), inattentive type, 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 91247305 Problem Posttraumatic stress disorder F43.10 Active 11559467 Problem High risk medication use Z79.899 Activ e [id number] ALLERGIES No Information ENCOUNTERS Encounter Location Date Diagnosis [facility] [address] [facility] [id number] [address] [place] [phone] Jan, [facility] [address] [facility] [id number] [address] [place] [id number] Dec, Paranoid schizophrenia F20.0 ; Posttraumatic stress disorder F43.10 ; Attention deficit hyperactivity disorder (ADHD), inattentive type, 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 and Borderline personality disorder F60.3 [facility] [address] [facility] [id number] [address] [place] [address] Dec, Paranoid schizophrenia F20.0 ; Posttraumatic stress disorder F43.10 ; Attention deficit hyperactivity disorder (ADHD), inattentive type, 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 and Borderline personality disorder F60.3 [facility] [address] [place] [id number] [address] [place] [address] Oct, Paranoid schizophrenia F20.0 ; Posttraumatic stress disorder F43.10 ; Attention deficit hyperactivity disorder (ADHD), inattentive type, 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 and Borderline personality disorder F60.3 [facility] [address] [place] [id number] [address] [place] [address] Oct, Paranoid schizophrenia F20.0 ; Posttraumatic stress disorder F43.10 ; Attention deficit hyperactivity disorder (ADHD), inattentive type, 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 and Borderline personality disorder F60.3 [facility] [address] [place] [place] [id number] [address] [place] [address] Aug, [facility] [address] [place] [id number] [place] [address] Aug, Paranoid schizophrenia F20.0 ; Posttraumatic stress disorder F43.10 ; Attention deficit hyperactivity disorder (ADHD), inattentive type, 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 and Borderline personality disorder F60.3 [facility] [address] [facility] [id number] [address] [place] [address] Jul, Dry skin dermatitis L85.3 [facility] [address] [facility] [id number] [address] [place] [id number] Jul, [facility] [address] [facility] [id number] [address] [place] [address] Jul, Paranoid schizophrenia F20.0 [facility] [address] [facility] [id number] [address] [place] [address] May, Paranoid schizophrenia F20.0 ; Posttraumatic stress disorder F43.10 ; Attention deficit hyperactivity disorder (ADHD), inattentive type, 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 and Borderline personality disorder F60.3 [facility] [address] [facility] [id number] [address] [place] [phone] May, [facility] [address] [id number] [address] [address] May, Paranoid schizophrenia F20.0 [facility] [address] [id number] [address] [place] [address], [place] [address] May, Paranoid schizophrenia F20.0 ; Posttraumatic stress disorder F43.10 ; Attention deficit hyperactivity disorder (ADHD), inattentive type, 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 and Borderline personality disorder F60.3 [facility] [address] [id number] [facility] [place] [address] Apr, [facility] [address] [id number] [address] [place] [address], [place] [address] Apr, Paranoid schizophrenia F20.0 ; Posttraumatic stress disorder F43.10 ; Attention deficit hyperactivity disorder (ADHD), inattentive type, 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 and Borderline personality disorder F60.3 [facility] [address] [id number] [address] [place] [id number] Apr, [facility] [address] [id number] [address] [place] [phone] Apr, Schizoaffective disorder, de pressive type F25.1 and Borderline personality disorder F60.3 [facility] [address] [id number] [address] [place] [address] Apr, Paranoid schizophrenia F20.0 ; Posttraumatic stress disorder F43.10 ; Attention deficit hyperactivity disorder (ADHD), inattentive type, 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 and Borderline personality disorder F60.3 [facility] [address] [id number] [address] [place] [address] Apr, [facility] [address] [id number] [address] [place] [address] Apr, Paranoid schizophrenia F20.0 ; Posttraumatic stress disorder F43.10 ; Attention deficit hyperactivity disorder (ADHD), inattentive type, 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 and Borderline personality disorder F60.3 [facility] [address] [id number] [address] [place] [address] Apr, [facility] [address] [id number] [address] [place] [phone] Mar, Paranoid schizophrenia F20.0 [facility] [address] [id number] [address] [place] [address] Mar, [facility] [address] [id number] [address] [place] [phone] Mar, Paranoid schizophrenia F20.0 ; Posttraumatic stress disorder F43.10 ; Attention deficit hyperactivity disorder (ADHD), inattentive type, 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 and Borderline personality disorder F60.3 [facility] [address] [id number] [address] [place] [address] February, Paranoid schizophrenia F20.0 [facility] [address] [id number] [address] [place] [address] February, Paranoid schizophrenia F20.0 ; Posttraumatic stress disorder F43.10 ; Attention deficit hyperactivity disorder (ADHD), inattentive type, 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 and Borderline personality disorder F60.3 [facility] [address] [id number] [address] [place] [address] February, Paranoid schizophrenia F20.0 ; Posttraumatic stress disorder F43.10 ; Attention deficit hyperactivity disorder (ADHD), inattentive type, 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0 ; Posttraumatic stress disorder F43.10 ; Attention deficit hyperactivity disorder (ADHD), inattentive type, 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 and Borderline personality disorder F60.3 [facility] [address] [id number] [address] [place] [address] Jan, Paranoid schizophrenia F20.0 ; Posttraumatic stress disorder F43.10 ; Attention deficit hyperactivity disorder (ADHD), inattentive type, 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 and Borderline personality disorder F60.3 [facility] [address] [id number] [address] [place] [address] Jan, Paranoid schizophrenia F20.0 [facility] [address] [id number] [address] [place] [phone] Jan, Paranoid schizophrenia F20.0 [facility] [address] [facility] [id number] [address] [place] [address] Jan, Paranoid schizophrenia F20.0 ; Posttraumatic stress disorder F43.10 ; Attention deficit hyperactivity disorder (ADHD), inattentive type, 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 and Borderline personality disorder F60.3 [facility] [address] [id number] [address] [place] [id number] Dec, [facility] [address] [id number] [address] [place] [address] Nov, Paranoid schizophrenia F20.0 ; Posttraumatic stress disorder F43.10 ; Attention deficit hyperactivity disorder (ADHD), inattentive type, 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 and Borderline personality disorder F60.3 [facility] [address] [id number] [address] [place] [phone] Nov, [facility] [address] [id number] [address] [place] [id number] Oct, Paranoid schizophrenia F20.0 [facility] [address] [facility] [id number] [address] [place] [phone] Oct, Paranoid schizophrenia F20.0 ; Posttraumatic stress disorder F43.10 ; Attention deficit hyperactivity disorder (ADHD), inattentive type, 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 ; Borderline personality disorder F60.3 and Other jail (current) drug therapy Z79.899 [facility] [address] [id number] [address] [place] [phone] Oct, [facility] [address] [facility] [id number] [address] [place] [phone] Oct, [facility] [address] [id number] [address] [place] [phone] Sep, [facility] [address] [id number] [address] [place] [phone] Sep, Paranoid schizophrenia F20.0 ; Posttraumatic stress disorder F43.10 ; Attention deficit hyperactivity disorder (ADHD), inattentive type, 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 and Borderline personality disorder F60.3 [facility] [address] [facility] [id number] [address] [place] [id number] Sep, Paranoid schizophrenia F20.0 [facility] [address] [id number] [address] [place] [phone] Aug, Paranoid schizophrenia F20.0 ; Posttraumatic stress disorder F43.10 ; Attention deficit hyperactivity disorder (ADHD), inattentive type, 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 and Borderline personality disorder F60.3 [facility] [address] [facility] [id number] [address] [place] [address] Aug, Paranoid schizophrenia F20.0 ; Posttraumatic stress disorder F43.10 ; Attention deficit hyperactivity disorder (ADHD), inattentive type, 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 and Borderline personality disorder F60.3 [facility] [address] [id number] [address] [place] [phone] Aug, [facility] [address] [facility] [id number] [address] [place] [phone] Jul, Paranoid schizophrenia F20.0 ; Posttraumatic stress disorder F43.10 ; Attention deficit hyperactivity disorder (ADHD), inattentive type, 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 and Borderline personality disorder F60.3 [facility] [address] [id number] [address] [place] [phone] Jul, Paranoid schizophrenia F20.0 [facility] [address] [id number] [address] [place] [id number] Jul, Paranoid schizophrenia F20.0 ; Posttraumatic stress disorder F43.10 ; Attention deficit hyperactivity disorder (ADHD), inattentive type, 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 and Borderline personality disorder F60.3 [facility] [address] [id number] [address] [place] [id number] Jun, Paranoid schizophrenia F20.0 ; Posttraumatic stress disorder F43.10 ; Attention deficit hyperactivity disorder (ADHD), inattentive type, 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 and Borderline personality disorder F60.3 [facility] [address] [id number] [address] [place] [address] May, Other jail (current) dr ug therapy Z79.899 [facility] [address] [id number] [address] [place] [phone] May, [facility] [address] [id number] [address] [place] [phone] May, [facility] [address] [facility] [id number] [address] [place] [phone] May, Attention deficit hyperactiv ity disorder (ADHD), inattentive type, mild F90.0 [facility] [address] [facility] [id number] [address] [place] [phone] May, [facility] [address] [id number] [address] [place] [phone] May, Attention deficit hyperactiv ity disorder (ADHD), inattentive type, mild F90.0 [facility] [address] [id number] [address] [place] [address] May, Paranoid schizophrenia F20.0 ; Posttraumatic stress disorder F43.10 ; Attention deficit hyperactivity disorder (ADHD), inattentive type, 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 and Other jail (current) drug therapy Z79.899 [facility] [address] [id number] [address] [place] [phone] Apr, Paranoid schizophrenia F20.0 [facility] [address] [id number] [address] [place] [id number] Apr, Paranoid schizophrenia F20.0 ; Posttraumatic stress disorder F43.10 and Attention deficit hyperactivity disorder (ADHD), inattentive type, 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 [facility] [address] [id number] [address] [place] [address] February, [facility] [address] [id number] [address] [place] [address] February, Paranoid schizophrenia F20.0 ; Posttraumatic stress disorder F43.10 and Attention deficit hyperactivity disorder (ADHD), inattentive type, 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 [facility] [address] [id number] [address] [place] [address] February, Paranoid schizophrenia F20.0 ; Posttraumatic stress disorder F43.10 and Attention deficit hyperactivity disorder (ADHD), inattentive type, 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 [facility] [address] [id number] [address] [place] [phone] Jan, Paranoid schizophrenia F20.0 ; Posttraumatic stress disorder F43.10 and Attention deficit hyperactivity disorder (ADHD), inattentive type, 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 [facility] [address] [id number] [address] [place] [id number] Dec, Dental examination Z01.20 [facility] [address] [id number] [address] [place] [id number] Nov, Dental examination Z01.20 [facility] [address] [id number] [address] [place] [id number] Nov, Dental examination Z01.20 [facility] [address] [id number] [address] [place] [address] [id number] Nov, Dental caries K02.9 [facility] [address] [id number] [address] [place] [id number] Nov, High risk medication use Z79 .899 [facility] [address] [id number] [address] [place] [phone] Nov, Paranoid schizophrenia F20.0 ; Posttraumatic stress disorder F43.10 ; Attention deficit hyperactivity disorder (ADHD), inattentive type, 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 and Borderline personality disorder in adult F60.3 [facility] [address] [id number] [address] [place] [address] [id number] Oct, Dental caries K02.9 [facility] [address] [id number] [address] [place] [address] Sep, Paranoid schizophrenia F20.0 ; Posttraumatic stress disorder F43.10 and Attention deficit hyperactivity disorder (ADHD), inattentive type, 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 [facility] [address] [id number] [address] [place] [phone] Aug, Paranoid schizophrenia F20.0 ; Posttraumatic stress disorder F43.10 and Attention deficit hyperactivity disorder (ADHD), inattentive type, 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 [facility] [address] [id number] [address] [place] [address] Aug, Strep throat J02.0 and Cough R05 [facility] [address] [id number] [address] [place] [address] Aug, [facility] [address] [id number] [address] [place] [id number] 24 Jul, 2016 Paranoid schizophrenia F20.0 ; Posttraumatic stress disorder F43.10 and Attention deficit hyperactivity disorder (ADHD), inattentive type, 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 [facility] [address] [id number] [address] [place] [phone] Jul, [facility] [address] [id number] [address] [place] [phone] Jun, Paranoid schizophrenia F20.0 ; Posttraumatic stress disorder F43.10 and Attention deficit hyperactivity disorder (ADHD), inattentive type, 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 [facility] [address] [id number] [address] [place] [address] [id number] Jun, Dental examination Z01.20 [facility] [address] [id number] [address] [place] [phone] Jun, [facility] [address] [id number] [address] [place] [phone] May, Paranoid schizophrenia F20.0 [facility] [address] [id number] [address] [place] [id number] May, Paranoid schizophrenia F20.0 ; Posttraumatic stress disorder F43.10 and Attention deficit hyperactivity disorder (ADHD), inattentive type, 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 [facility] [address] [id number] [address] [place] [id number] May, [facility] [address] [id number] [address] [place] [phone] May, Paranoid schizophrenia F20.0 [facility] [address] [id number] [address] [place] [phone] May, [facility] [address] [id number] [address] [place] [phone] May, Paranoid schizophrenia F20.0 [facility] [address] [id number] [address] [place] [address] May, Schizoaffective disorder, un specified F25.9 [facility] [address] [id number] [address] [place] [address] May, Schizoaffective disorder, un specified F25.9 [facility] [address] [id number] [address] [place] [phone] May, [facility] [address] [id number] [address] [place] [id number] May, Paranoid schizophrenia F20.0 [facility] [address] [id number] [address] [place] [id number] May, Paranoid schizophrenia F20.0 ; Posttraumatic stress disorder F43.10 and Attention deficit hyperactivity disorder (ADHD), inattentive type, 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 [facility] [address] [id number] [address] [place] [address], [place] [address] Mar, [facility] [address] [id number] [facility] [place] [address] Mar, Paranoid schizophrenia F20.0 ; Posttraumatic stress disorder F43.10 and Attention deficit hyperactivity disorder (ADHD), inattentive type, 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 [facility] [address] [id number] [address] [place] [address], [place] [address] Mar, Paranoid schizophrenia F20.0 [facility] [address] [id number] [address] [place] [address], [place] [address] Mar, Paranoid schizophrenia F20.0 ; Attention deficit hyperactivity disorder (ADHD), inattentive type, 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 and Posttraumatic stress disorder F43.10 [facility] [address] [id number] [address] [place] [id number] Mar, [facility] [address] [id number] [address] [place] [address], [place] [address] Mar, Paranoid schizophrenia F20.0 ; Posttraumatic stress disorder F43.10 and Attention deficit hyperactivity disorder (ADHD), inattentive type, 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 [facility] [address] [id number] [address] [place] [address], [place] [address] February, [facility] [address] [id number] [address] [place] [phone] February, [facility] [address] [id number] [address] [place] [address], [place] [address] February, [facility] [address] [id number] [address] [place] [phone] February, [facility] [address] [id number] [address] [place] [address], [place] [address] Jan, Paranoid schizophrenia F20.0 [facility] [address] [id number] [address] [place] [address] [id number] Jan, Dental examination Z01.20 [facility] [address] [id number] [address] [place] [address] [id number] Jan, Dental caries K02.9 [facility] [address] [id number] [address] [place] [address] [id number] Jan, Dental examination Z01.20 [facility] [address] [id number] [address] [place] [address] [id number] Dec, Encounter for dental examina tion Z01.20 [facility] [address] [id number] [address] [place] [phone] Dec, Paranoid schizophrenia F20.0 [facility] [address] [id number] [address] [place] [address] [id number] Dec, Dental examination Z01.20 [facility] [address] [id number] [address] [place] [id number] Dec, [facility] [address] [id number] [address] [place] [phone] Dec, Paranoid schizophrenia F20.0 ; Posttraumatic stress disorder F43.10 and Attention deficit hyperactivity disorder (ADHD), inattentive type, 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 [facility] [address] [id number] [address] [place] [id number] Nov, Schizoaffective disorder, un specified F25.9 [facility] [address] [id number] [address] [place] [id number] Oct, Paranoid schizophrenia F20.0 [facility] [address] [id number] [address] [place] [id number] Oct, [facility] [address] [id number] [address] [place] [id number] Sep, Paranoid schizophrenia F20.0 ; Posttraumatic stress disorder F43.10 and Attention deficit hyperactivity disorder (ADHD), inattentive type, 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 [facility] [address] [id number] [address] [place] [id number] Sep, [facility] [address] [facility] [id number] [address] [place], [place] [id number] Sep, Paranoid schizophrenia F20.0 ; Posttraumatic stress disorder F43.10 and Attention deficit hyperactivity disorder (ADHD), inattentive type, 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 [facility] [address] [facility] [id number] [address] [place] [id number] Aug, Paranoid schizophrenia F20.0 [facility] [address] [facility] [id number] [address] [place] [id number] Aug, [facility] [address] [facility] [id number] [address] [place] [id number] Aug, Posttraumatic stress disorde r F43.10 ; Paranoid schizophrenia F20.0 and Attention deficit hyperactivity disorder (ADHD), inattentive type, 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81 and Attention deficit disorder of childhood without mention of hyperactivity 314.00 [facility] [address] [facility] [id number] [address] [place] [id number] May, [facility] [address] [facility] [id number] [address] [place] [id number] May, [facility] [address] [facility] [id number] [address] [place] [id number] May, Schizoaffective disorder, ch ronic 295.72 ; Posttraumatic stress disorder 309.81 ; Attention deficit disorder of childhood without mention of hyperactivity 314.00 and Bipolar disorder, unspecified 296.80 [facility] [address] [facility] [id number] [address] [place] [id number] Apr, Schizoaffective disorder, ch ronic 295.72 [facility] [address] [facility] [id number] [address] [place] [id number] Apr, [facility] [address] [id number] [address] [place] [id number] Apr, Schizoaffective disorder, ch ronic 295.72 ; Posttraumatic stress disorder 309.81 and Attention deficit disorder of childhood without mention of hyperactivity 314.00 [facility] [address] [facility] [id number] [address] [place] [id number] Mar, Disorganized schizophrenia, 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 [facility] [address] [facility] [id number] [address] [place] [phone] Mar, [facility] [address] [facility] [id number] [address] [place] [id number] Mar, [facility] [address] [facility] [id number] [address] [place] [id number] Mar, [facility] [address] [facility] [id number] [address] [place] [id number] Mar, [facility] [address] [facility] [id number] [address] [place] [id number] February, Schizoaffective disorder, ch ronic 295.72 [facility] [address] [facility] [id number] [address] [place] [id number] February, [facility] [address] [facility] [id number] [address] [place] [id number] February, Attention 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 ; Posttraumatic stress disorder 309.81 and Schizoaffective disorder, chronic 295.72 [facility] [address] [id number] [address] [place] [address], [place] [address] 29 Jan, 2015 [facility] [address] [id number] [address] [place] [address], [place] [address] 14 Jan, 2015 [facility] [address] [id number] [address] [place] [address], [place] [address] Jan, [facility] [address] [id number] [address] [place] [address], [place] [address] Dec, [facility] [address] [id number] [address] [place] [address], [place] [address] Dec, [facility] [address] [id number] [address] [place] [address], [place] [address] Dec, [facility] [address] [id number] [address] [place] [address], [place] [address] Dec, [facility] [address] [id number] [address] [place] [address], [place] [address] Dec, [facility] [address] [id number] [address] [place] [address], [place] [address] Dec, [facility] [address] [id number] [address] [place] [address], [place] [address] Dec, [facility] [address] [id number] [address] [place] [address], [place] [address] Dec, [facility] [address] [id number] [address] [place] [address], [place] [address] Nov, [facility] [address] [id number] [address] [place] [address], [place] [address] Nov, [facility] [address] [id number] [address] [place] [address], [place] [address] Nov, [facility] [address] [id number] [address] [place] [address], [place] [address] Nov, [facility] [address] [id number] [address] [place] [address], [place] [address] Nov, [facility] [address] [id number] [address] [place] [address], [place] [address] Nov, [facility] [address] [id number] [address] [place] [address], [place] [address] Nov, [facility] [address] [id number] [address] [place] [address], [place] [address] Nov, [facility] [address] [id number] [address] [place] [address], [place] [address] Nov, [facility] [address] [id number] [address] [place] [address], [place] [address] Nov, [facility] [address] [id number] [address] [place] [address], [place] [address] Oct, [facility] [address] [id number] [address] [place] [address], [place] [address] Oct, [facility] [address] [id number] [address] [place] [address], [place] [address] Oct, [facility] [address] [id number] [address] [place] [address], [place] [address] Oct, [facility] [address] [id number] [address] [place] [address], [place] [address] Oct, [facility] [address] [id number] [address] [place] [address], [place] [address] Oct, [facility] [address] [id number] [address] [place] [address], [place] [address] Oct, [facility] [address] [id number] [address] [place] [address], [place] [address] Sep, [facility] [address] [id number] [address] [place] [address], [place] [address] Sep, [facility] [address] [id number] [address] [place] [address], [place] [address] Sep, [facility] [address] [id number] [address] [place] [address], [place] [address] 15 Sep, 2014 [facility] [address] [id number] [address] [place] [address], [place] [address] Aug, [facility] [address] [id number] [address] [place] [address], [place] [address] Aug, [facility] [address] [id number] [address] [place] [address], [place] [address] Aug, [facility] [address] [id number] [address] [place] [address], [place] [address] Aug, [facility] [address] [id number] [address] [place] [address], [place] [address] Aug, [facility] [address] [id number] [address] [place] [address], [place] [address] Aug, [facility] [address] [id number] [address] [place] [address], [place] [address] Jul, [facility] [address] [id number] [address] [place] [address], [place] [address] 29 Jul, 2014 [facility] [address] [id number] [address] [place] [address], [place] [address] 24 Jul, 2014 [facility] [address] [id number] [address] [place] [address], [place] [address] 24 Jul, 2014 [facility] [address] [id number] [address] [place] [address], [place] [address] 15 Jul, 2014 [facility] [address] [id number] [address] [place] [address], [place] [address] 15 Jul, 2014 [facility] [address] [id number] [address] [place] [address], [place] [address] 27 Jun, 2014 [facility] [address] [id number] [address] [place] [address], [place] [address] 27 Jun, 2014 [facility] [address] [id number] [address] [place] [address], [place] [address] Jun, 2013 [facility] [address] [id number] [facility] [place] [address] 26 Jun, 2013 [facility] [address] [id number] [facility] [place] [address] Jun, 2013 [facility] [address] [id number] [address] [place] [address], [place] [address] Jun, 2013 [facility] [address] [id number] [address] [place] [address], [place] [address] 16 Jun, 2013 [facility] [address] [id number] [address] [place] [address], [place] [address] 16 Jun, 2013 [facility] [address] [id number] [address] [place] [address], [place] [address] Jun, 2013 [facility] [address] [id number] [address] [place] [address], [place] [address] Jun, 2013 [facility] [address] [id number] [address] [place] [address], [place] [address] Jun, [facility] [address] [id number] [address] [place] [address], [place] [address] May, [facility] [address] [id number] [address] [place] [address], [place] [address] May, [facility] [address] [id number] [address] [place] [address], [place] [address] May, [facility] [address] [id number] [address] [place] [address], [place] [address] May, [facility] [address] [id number] [address] [place] [address], [place] [address] May, [facility] [address] [id number] [address] [place] [address], [place] [address] May, [facility] [address] [id number] [address] [place] [address], [place] [address] May, [facility] [address] [id number] [address] [place] [address], [place] [address] May, [facility] [address] [id number] [address] [place] [address], [place] [address] May, [facility] [address] [id number] [address] [place] [address], [place] [address] May, [facility] [address] [id number] [address] [place] [address], [place] [address] Apr, [facility] [address] [id number] [address] [place] [address], [place] [address] Apr, [facility] [address] [id number] [address] [place] [address], [place] [address] Apr, [facility] [address] [id number] [address] [place] [address], [place] [address] Apr, [facility] [address] [id number] [address] [place] [address], [place] [address] Apr, [facility] [address] [id number] [address] [place] [address], [place] [address] Apr, [facility] [address] [id number] [address] [place] [address], [place] [address] Apr, [facility] [address] [id number] [address] [place] [address], [place] [address] Apr, [facility] [address] [id number] [address] [place] [address], [place] [address] Apr, [facility] [address] [id number] [address] [place] [address], [place] [address] Apr, [facility] [address] [id number] [address] [place] [address], [place] [address] Mar, [facility] [address] [id number] [address] [place] [address], [place] [address] Mar, [facility] [address] [id number] [address] [place] [address], [place] [address] Mar, [facility] [address] [id number] [address] [place] [address], [place] [address] Mar, [facility] [address] [id number] [address] [place] [address], [place] [address] Mar, [facility] [address] [id number] [address] [place] [address], [place] [address] Mar, [facility] [address] [id number] [address] [place] [address], [place] [address] Mar, [facility] [address] [id number] [address] [place] [address], [place] [address] Mar, [facility] [address] [id number] [address] [place] [address], [place] [address] Mar, [facility] [address] [id number] [address] [place] [address], [place] [address] Mar, [facility] [address] [id number] [address] [place] [address], [place] [address] Mar, [facility] [address] [id number] [address] [place] [address], [place] [address] Mar, [facility] [address] [id number] [address] [place] [address], [place] [address] Mar, [facility] [address] [id number] [address] [place] [address], [place] [address] Mar, [facility] [address] [id number] [address] [place] [address], [place] [address] Mar, [facility] [address] [id number] [address] [place] [address], [place] [address] Mar, [facility] [address] [id number] [address] [place] [address], [place] [address] Mar, [facility] [address] [id number] [address] [place] [address], [place] [address] 09 Mar, 2014 [facility] [address] [id number] [address] [place] [address], [place] [address] Mar, [facility] [address] [id number] [facility] [place] [address] Mar, [facility] [address] [id number] [address] [place] [address], [place] [address] February, [facility] [address] [id number] [address] [place] [address], [place] [address] February, [facility] [address] [id number] [address] [place] [address], [place] [address] February, [facility] [address] [id number] [address] [place] [address], [place] [address] February, [facility] [address] [id number] [address] [place] [address], [place] [address] February, [facility] [address] [id number] [address] [place] [address], [place] [address] February, [facility] [address] [id number] [address] [place] [address], [place] [address] February, [facility] [address] [id number] [address] [place] [address], [place] [address] February, [facility] [address] [id number] [address] [place] [address], [place] [address] February, [facility] [address] [id number] [address] [place] [address], [place] [address] February, [facility] [address] [id number] [address] [place] [address], [place] [address] February, [facility] [address] [id number] [address] [place] [address], [place] [address] February, [facility] [address] [id number] [address] [place] [address], [place] [address] February, [facility] [address] [id number] [address] [place] [address], [place] [address] February, [facility] [address] [id number] [address] [place] [address], [place] [address] February, [facility] [address] [id number] [address] [place] [address], [place] [address] February, [facility] [address] [id number] [address] [place] [address], [place] [address] February, [facility] [address] [id number] [address] [place] [address], [place] [address] February, [facility] [address] [id number] [address] [place] [address], [place] [address] February, [facility] [address] [id number] [address] [place] [address], [place] [address] February, [facility] [address] [id number] [address] [place] [address], [place] [address] February, [facility] [address] [id number] [address] [place] [address], [place] [address] Jan, [facility] [address] [id number] [address] [place] [address], [place] [address] Jan, [facility] [address] [id number] [address] [place] [address], [place] [address] Jan, [facility] [address] [id number] [address] [place] [address], [place] [address] Jan, [facility] [address] [id number] [address] [place] [address], [place] [address] Jan, [facility] [address] [id number] [address] [place] [address], [place] [address] Jan, [facility] [address] [id number] [address] [place] [address], [place] [address] Jan, [facility] [address] [id number] [address] [place] [address], [place] [address] Jan, [facility] [address] [id number] [address] [place] [address], [place] [address] Dec, [facility] [address] [id number] [facility] [place] [address] 20 Dec, 2013 [facility] [address] [id number] [facility] [place] [address] 20 Dec, 2013 [facility] [address] [id number] [facility] [place] [address] 19 Dec, 2013 [facility] [place] [address] [id number] [address] [place] [address], [place] [address] 19 Dec, 2013 [facility] [address] [id number] [address] [place] [address], [place] [address] 15 Dec, 2013 [facility] [place] [address] [id number] [address] [place] [address], [place] [address] 15 Dec, 2013 [facility] [address] [id number] [address] [place] [address], [place] [address] 11 Dec, 2013 [facility] [place] [address] [id number] [address] [place] [address], [place] [address] 10 Dec, 2013 [facility] [place] [address] [id number] [address] [place] [address], [place] [address] 10 Dec, 2013 [facility] [place] [address] [id number] [address] [place] [address], [place] [address] 18 Nov, 2013 [facility] [place] [facility] [address] [id number] [address] [place] [address], [place] [address] 17 Nov, 2013 [facility] [place] [address] [id number] [address] [place] [address], [place] [address] Nov, [facility] [place] [address] [id number] [address] [place] [address], [place] [address] 05 Nov, 2013 [facility] [place] [address] [id number] [address] [place] [address], [place] [address] 05 Nov, 2013 [facility] [place] [address] [id number] [address] [place] [address], [place] [address] Oct, [facility] [place] [facility] [address] [id number] [address] [place] [address] Oct, [facility] [address] [id number] [address] [place] [address], [place] [address] Oct, [facility] [address] [id number] [address] [place] [address], [place] [address] Sep, [facility] [address] [id number] [address] [place] [address], [place] [address] Sep, [facility] [address] [id number] [address] [place] [address], [place] [address] Sep, [facility] [address] [id number] [address] [place] [address], [place] [address] Sep, [facility] [address] [id number] [address] [place] [address], [place] [address] Aug, [facility] [address] [id number] [address] [place] [address], [place] [address] Aug, [facility] [address] [id number] [address] [place] [address], [place] [address] Jul, [facility] [address] [id number] [address] [place] [address], [place] [address] Jul, [facility] [address] [id number] [address] [place] [address], [place] [address] Jul, [facility] [address] [id number] [address] [place] [address], [place] [address] Jul, [facility] [address] [id number] [address] [place] [address], [place] [address] Jul, [facility] [address] [id number] [address] [place] [address], [place] [address] Jun, [facility] [address] [id number] [address] [place] [address], [place] [address] Jun, [facility] [address] [id number] [address] [place] [address], [place] [address] 19 Jun, 2013 [facility] [place] [address] [id number] [address] [place] [address], [place] [address] 18 Jun, 2013 [facility] [address] [id number] [address] [place] [address], [place] [address] 16 Jun, 2013 [facility] [address] [id number] [address] [place] [address], [place] [address] 12 Jun, 2013 [facility] [address] [id number] [address] [place] [address], [place] [address] 11 Jun, 2013 [facility] [address] [id number] [address] [place] [address], [place] [address] 30 May, 2013 [facility] [address] [id number] [address] [place] [address], [place] [address] May, [facility] [address] [id number] [address] [place] [address], [place] [address] Apr, [facility] [address] [id number] [address] [place] [address], [place] [address] Apr, [facility] [address] [id number] [address] [place] [address], [place] [address] Apr, [facility] [address] [id number] [address] [place] [address], [place] [address] Mar, [facility] [address] [id number] [address] [place] [address], [place] [address] Mar, [facility] [address] [id number] [address] [place] [address], [place] [address] February, [facility] [address] [id number] [address] [place] [address], [place] [address] February, [facility] [address] [id number] [address] [place] [address], [place] [address] February, [facility] [address] [id number] [address] [place] [address], [place] [address] February, [facility] [address] [address] [id number] [address] [place] [address], [place] [address] 19 Jan, 2013 [facility] [address] [id number] [address] [place] [address], [place] [address] 17 Jan, 2013 [facility] [address] [id number] [address] [place] [address], [place] [address] 16 Jan, 2013 [facility] [address] [id number] [address] [place] [address], [place] [address] 29 Dec, 2012 [facility] [address] [id number] [address] [place] [address], [place] [address] Dec, [facility] [address] [id number] [address] [place] [address], [place] [address] Dec, [facility] [address] [id number] [address] [place] [address], [place] [address] 08 Dec, 2012 [facility] [address] [id number] [address] [place] [address], [place] [address] Nov, [facility] [address] [id number] [address] [place] [address], [place] [address] Nov, [facility] [address] [id number] [address] [place] [address], [place] [address] Oct, [facility] [address] [id number] [address] [place] [address], [place] [address] Oct, [facility] [address] [id number] [address] [place] [address], [place] [address] Oct, [facility] [address] [id number] [address] [place] [address], [place] [address] Oct, [facility] [address] [id number] [address] [place] [address], [place] [address] Aug, [facility] [address] [id number] [address] [place] [address], [place] [address] Aug, [facility] [address] [id number] [address] [place] [address], [place] [address] 18 Jun, 2012 [facility] [address] [id number] [facility] [place] [address] May, [facility] [address] [id number] [address] [place] [address], [place] [address] May, [facility] [address] [id number] [address] [place] [address], [place] [address] Apr, [facility] [address] [id number] [address] [place] [address], [place] [address] Apr, [facility] [address] [id number] [address] [place] [address], [place] [address] Apr, [facility] [address] [id number] [address] [place] [address], [place] [address] Mar, [facility] [address] [id number] [address] [place] [address], [place] [address] Mar, [facility] [address] [id number] [address] [place] [address], [place] [address] Mar, [facility] [address] [id number] [address] [place] [address], [place] [address] Mar, [facility] [address] [id number] [address] [place] [address], [place] [address] Mar, [facility] [address] [id number] [address] [place] [address], [place] [address] February, [facility] [address] [id number] [address] [place] [address], [place] [address] February, [facility] [address] [id number] [address] [place] [address], [place] [address] February, [facility] [address] [id number] [address] [place] [address], [place] [address] February, [facility] [address] [id number] [address] [place] [address], [place] [address] February, [facility] [address] [id number] [address] [place] [address], [place] [address] February, [facility] [address] [id number] [address] [place] [address], [place] [address] February, [facility] [address] [id number] [address] [place] [address], [place] [address] Jan, [facility] [address] [id number] [address] [place] [address], [place] [address] Jan, [facility] [address] [id number] [address] [place] [address], [place] [address] 17 Jan, 2012 [facility] [address] [id number] [address] [place] [address], [place] [address] Jan, [facility] [address] [id number] [address] [place] [address], [place] [address] Jan, [facility] [address] [id number] [address] [place] [address], [place] [address] Jan, [facility] [address] [id number] [address] [place] [address], [place] [address] 30 Dec, 2011 [facility] [address] [id number] [address] [place] [address], [place] [address] 24 Dec, 2011 [facility] [address] [id number] [address] [place] [address], [place] [address] Dec, [facility] [address] [id number] [address] [place] [address], [place] [address] Dec, [facility] [address] [id number] [address] [place] [address], [place] [address] Dec, [facility] [address] [id number] [address] [place] [address], [place] [address] Nov, [facility] [address] [id number] [address] [place] [address], [place] [address] Nov, [facility] [address] [id number] [address] [place] [address], [place] [address] Nov, [facility] [address] [id number] [address] [place] [address], [place] [address] 14 Nov, 2011 [facility] [address] [id number] [address] [place] [address], [place] [address] 10 Nov, 2011 [facility] [address] [id number] [address] [place] [address], [place] [address] Nov, [facility] [address] [id number] [address] [place] [address], [place] [address] Oct, [facility] [address] [id number] [address] [place] [address], [place] [address] Oct, [facility] [address] [id number] [address] [place] [address], [place] [address] Oct, [facility] [address] [id number] [address] [place] [address], [place] [address] Oct, [facility] [address] [id number] [address] [place] [address], [place] [address] Oct, [facility] [address] [id number] [address] [place] [address], [place] [address] Sep, [facility] [address] [id number] [address] [place] [address], [place] [address] Sep, [facility] [address] [id number] [address] [place] [address], [place] [address] Sep, [facility] [address] [id number] [address] [place] [address], [place] [address] 14 Sep, 2011 [facility] [address] [id number] [address] [place] [address], [place] [address] 14 Sep, 2011 [facility] [address] [id number] [address] [place] [address], [place] [address] 13 Sep, 2011 [facility] [address] [id number] [address] [place] [address], [place] [address] 12 Sep, 2011 [facility] [address] [id number] [address] [place] [address], [place] [address] Sep, [facility] [address] [id number] [address] [place] [address], [place] [address] Sep, [facility] [address] [id number] [address] [place] [address], [place] [address] Aug, [facility] [address] [id number] [address] [place] [address], [place] [address] Aug, [facility] [address] [id number] [address] [place] [address], [place] [address] Aug, [facility] [address] [id number] [address] [place] [address], [place] [address] Aug, [facility] [address] [id number] [address] [place] [address], [place] [address] Aug, [facility] [address] [id number] [address] [place] [address], [place] [address] Aug, [facility] [address] [id number] [address] [place] [address], [place] [address] Aug, [facility] [address] [id number] [address] [place] [address], [place] [address] Aug, [facility] [address] [id number] [address] [place] [address], [place] [address] Aug, [facility] [address] [id number] [address] [place] [address], [place] [address] Aug, [facility] [address] [id number] [address] [place] [address], [place] [address] Aug, [facility] [address] [id number] [address] [place] [address], [place] [address] Aug, [facility] [address] [id number] [address] [place] [address], [place] [address] Jul, [facility] [address] [id number] [address] [place] [address], [place] [address] Jul, [facility] [address] [id number] [address] [place] [id number] Jul, [facility] [address] [id number] [address] [place] [id number] Jul, [facility] [address] [id number] [address] [place] [id number] Jul, [facility] [address] [id number] [address] [place] [id number] Jul, [facility] [address] [id number] [address] [place] [id number] Jul, [facility] [address] [id number] [address] [place] [id number] Jul, [facility] [address] [id number] [address] [place] [id number] Jul, [facility] [address] [id number] [address] [place] [id number] Jul, [facility] [address] [id number] [address] [place] [id number] Nov, [facility] [address] [id number] [address] [place] [id number] Aug, [facility] [address] [id number] [address] [place] [id number] Aug, [facility] [address] [id number] [address] [place] [id number] Aug, [facility] [address] [id number] [address] [place] [id number] Aug, [facility] [address] [id number] [address] [place] [id number] Jul, IMMUNIZATIONS No Known Immunizations SOCIAL HISTORY Never Assessed [place] V[place] [place] attempt by hanging [address] [facility] 01/30/2018-02/10/20 08 Hospitalization History [facility] 05/04/18-
--- OUTSIDE RECORDS SUMMARY | 2020-04-04 02:13 | XMS REPORT ---
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 Active 22345123 Problem Generalized anxiety disorder 300.02 A ctive 82349095 Problem Obsessive-compulsive disorders 300.3 Active 358745615 Problem Catatonic schizophrenia, 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 395709103 Problem Disorganized schizophrenia, 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 12760061 Problem Paranoid schizophrenia F20.0 Active 13801229 Problem Borderline personality disorder F60.3 Active 61063946 Problem Paranoid schizophrenia, unspecified condition 295.30 Active 61840024 Problem Schizoaffective disorder, depressive type F25.1 Active 15210649 Problem Bipolar disorder, unspecified 296.80 Active 92911909 Problem Schizoaffective disorder, unspecified F25.9 Active 84626455 Problem Attention deficit hyperactivity disorder (ADHD), inattentive type, 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 37707553 Problem Posttraumatic stress disorder F43.10 Active 82053811 Problem High risk medication use Z79.899 Activ e [id number] ALLERGIES No Information ENCOUNTERS Encounter Location Date Diagnosis [facility] [address] [facility] [id number] [address] [place] [address] Jan, [facility] [address] [facility] [id number] [address] [place] [address] Dec, Paranoid schizophrenia F20.0 ; Posttraumatic stress disorder F43.10 ; Attention deficit hyperactivity disorder (ADHD), inattentive type, 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 and Borderline personality disorder F60.3 [facility] [address] [facility] [id number] [address] [place] [address] Dec, Paranoid schizophrenia F20.0 ; Posttraumatic stress disorder F43.10 ; Attention deficit hyperactivity disorder (ADHD), inattentive type, 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 and Borderline personality disorder F60.3 [facility] [address] [place] [id number] [address] [place] [address] Oct, Paranoid schizophrenia F20.0 ; Posttraumatic stress disorder F43.10 ; Attention deficit hyperactivity disorder (ADHD), inattentive type, 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 and Borderline personality disorder F60.3 [facility] [address] [place] [id number] [address] [place] [address] Oct, Paranoid schizophrenia F20.0 ; Posttraumatic stress disorder F43.10 ; Attention deficit hyperactivity disorder (ADHD), inattentive type, 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 and Borderline personality disorder F60.3 [facility] [address] [place] [id number] [address] [place] [address] Aug, [facility] [address] [place] [id number] [place] [address] Aug, Paranoid schizophrenia F20.0 ; Posttraumatic stress disorder F43.10 ; Attention deficit hyperactivity disorder (ADHD), inattentive type, 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 and Borderline personality disorder F60.3 [facility] [address] [facility] [id number] [address] [place] [address] Jul, Dry skin dermatitis L85.3 [facility] [address] [facility] [id number] [address] [place] [address] Jul, [facility] [address] [facility] [id number] [address] [place] [address] Jul, Paranoid schizophrenia F20.0 [facility] [address] [facility] [id number] [address] [place] [address] May, Paranoid schizophrenia F20.0 ; Posttraumatic stress disorder F43.10 ; Attention deficit hyperactivity disorder (ADHD), inattentive type, 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 and Borderline personality disorder F60.3 [facility] [address] [facility] [id number] [address] [place] [phone] May, [facility] [address] [id number] [address] [address] May, Paranoid schizophrenia F20.0 [facility] [address] [id number] [address] [place] [address], [place] [address] May, Paranoid schizophrenia F20.0 ; Posttraumatic stress disorder F43.10 ; Attention deficit hyperactivity disorder (ADHD), inattentive type, 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 and Borderline personality disorder F60.3 [facility] [address] [id number] [facility] [place] [address] Apr, [facility] [address] [id number] [address] [place] [address], [place] [address] Apr, Paranoid schizophrenia F20.0 ; Posttraumatic stress disorder F43.10 ; Attention deficit hyperactivity disorder (ADHD), inattentive type, 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 and Borderline personality disorder F60.3 [facility] [address] [id number] [address] [place] [address] Apr, [facility] [address] [id number] [address] [place] [address] Apr, Schizoaffective disorder, de pressive type F25.1 and Borderline personality disorder F60.3 [facility] [address] [id number] [address] [place] [address] Apr, Paranoid schizophrenia F20.0 ; Posttraumatic stress disorder F43.10 ; Attention deficit hyperactivity disorder (ADHD), inattentive type, 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 and Borderline personality disorder F60.3 [facility] [address] [id number] [address] [place] [address] Apr, [facility] [address] [id number] [address] [place] [address] Apr, Paranoid schizophrenia F20.0 ; Posttraumatic stress disorder F43.10 ; Attention deficit hyperactivity disorder (ADHD), inattentive type, 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 and Borderline personality disorder F60.3 [facility] [address] [id number] [address] [place] [address] Apr, [facility] [address] [id number] [address] [place] [address] Mar, Paranoid schizophrenia F20.0 [facility] [address] [id number] [address] [place] [address] Mar, [facility] [address] [id number] [address] [place] [address] Mar, Paranoid schizophrenia F20.0 ; Posttraumatic stress disorder F43.10 ; Attention deficit hyperactivity disorder (ADHD), inattentive type, 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 and Borderline personality disorder F60.3 [facility] [address] [id number] [address] [place] [address] February, Paranoid schizophrenia F20.0 [facility] [address] [id number] [address] [place] [address] February, Paranoid schizophrenia F20.0 ; Posttraumatic stress disorder F43.10 ; Attention deficit hyperactivity disorder (ADHD), inattentive type, 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 and Borderline personality disorder F60.3 [facility] [address] [id number] [address] [place] [address] February, Paranoid schizophrenia F20.0 ; Posttraumatic stress disorder F43.10 ; Attention deficit hyperactivity disorder (ADHD), inattentive type, 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0 ; Posttraumatic stress disorder F43.10 ; Attention deficit hyperactivity disorder (ADHD), inattentive type, 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 and Borderline personality disorder F60.3 [facility] [address] [id number] [address] [place] [address] Jan, Paranoid schizophrenia F20.0 ; Posttraumatic stress disorder F43.10 ; Attention deficit hyperactivity disorder (ADHD), inattentive type, 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 and Borderline personality disorder F60.3 [facility] [address] [id number] [address] [place] [address] Jan, Paranoid schizophrenia F20.0 [facility] [address] [id number] [address] [place] [address] Jan, Paranoid schizophrenia F20.0 [facility] [address] [facility] [id number] [address] [place] [address] Jan, Paranoid schizophrenia F20.0 ; Posttraumatic stress disorder F43.10 ; Attention deficit hyperactivity disorder (ADHD), inattentive type, 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 and Borderline personality disorder F60.3 [facility] [address] [id number] [address] [place] [address] Dec, [facility] [address] [id number] [address] [place] [address] Nov, Paranoid schizophrenia F20.0 ; Posttraumatic stress disorder F43.10 ; Attention deficit hyperactivity disorder (ADHD), inattentive type, 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 and Borderline personality disorder F60.3 [facility] [address] [id number] [address] [place] [address] Nov, [facility] [address] [id number] [address] [place] [address] Oct, Paranoid schizophrenia F20.0 [facility] [address] [facility] [id number] [address] [place] [address] Oct, Paranoid schizophrenia F20.0 ; Posttraumatic stress disorder F43.10 ; Attention deficit hyperactivity disorder (ADHD), inattentive type, 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 ; Borderline personality disorder F60.3 and Other alf (current) drug therapy Z79.899 [facility] [address] [id number] [address] [place] [address] Oct, [facility] [address] [facility] [id number] [address] [place] [address] Oct, [facility] [address] [id number] [address] [place] [address] Sep, [facility] [address] [id number] [address] [place] [address] Sep, Paranoid schizophrenia F20.0 ; Posttraumatic stress disorder F43.10 ; Attention deficit hyperactivity disorder (ADHD), inattentive type, 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 and Borderline personality disorder F60.3 [facility] [address] [facility] [id number] [address] [place] [address] Sep, Paranoid schizophrenia F20.0 [facility] [address] [id number] [address] [place] [address] Aug, Paranoid schizophrenia F20.0 ; Posttraumatic stress disorder F43.10 ; Attention deficit hyperactivity disorder (ADHD), inattentive type, 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 and Borderline personality disorder F60.3 [facility] [address] [facility] [id number] [address] [place] [address] Aug, Paranoid schizophrenia F20.0 ; Posttraumatic stress disorder F43.10 ; Attention deficit hyperactivity disorder (ADHD), inattentive type, 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 and Borderline personality disorder F60.3 [facility] [address] [id number] [address] [place] [address] Aug, [facility] [address] [facility] [id number] [address] [place] [address] Jul, Paranoid schizophrenia F20.0 ; Posttraumatic stress disorder F43.10 ; Attention deficit hyperactivity disorder (ADHD), inattentive type, 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 and Borderline personality disorder F60.3 [facility] [address] [id number] [address] [place] [address] Jul, Paranoid schizophrenia F20.0 [facility] [address] [id number] [address] [place] [address] Jul, Paranoid schizophrenia F20.0 ; Posttraumatic stress disorder F43.10 ; Attention deficit hyperactivity disorder (ADHD), inattentive type, 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 and Borderline personality disorder F60.3 [facility] [address] [id number] [address] [place] [address] Jun, Paranoid schizophrenia F20.0 ; Posttraumatic stress disorder F43.10 ; Attention deficit hyperactivity disorder (ADHD), inattentive type, 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 and Borderline personality disorder F60.3 [facility] [address] [id number] [address] [place] [address] May, Other alf (current) dr ug therapy Z79.899 [facility] [address] [id number] [address] [place] [address] May, [facility] [address] [id number] [address] [place] [address] May, [facility] [address] [facility] [id number] [address] [place] [address] May, Attention deficit hyperactiv ity disorder (ADHD), inattentive type, mild F90.0 [facility] [address] [facility] [id number] [address] [place] [address] May, [facility] [address] [id number] [address] [place] [address] May, Attention deficit hyperactiv ity disorder (ADHD), inattentive type, mild F90.0 [facility] [address] [id number] [address] [place] [address] May, Paranoid schizophrenia F20.0 ; Posttraumatic stress disorder F43.10 ; Attention deficit hyperactivity disorder (ADHD), inattentive type, 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 and Other alf (current) drug therapy Z79.899 [facility] [address] [id number] [address] [place] [address] Apr, Paranoid schizophrenia F20.0 [facility] [address] [id number] [address] [place] [id number] Apr, Paranoid schizophrenia F20.0 ; Posttraumatic stress disorder F43.10 and Attention deficit hyperactivity disorder (ADHD), inattentive type, 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 [facility] [address] [id number] [address] [place] [address] February, [facility] [address] [id number] [address] [place] [address] February, Paranoid schizophrenia F20.0 ; Posttraumatic stress disorder F43.10 and Attention deficit hyperactivity disorder (ADHD), inattentive type, 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 [facility] [address] [id number] [address] [place] [address] February, Paranoid schizophrenia F20.0 ; Posttraumatic stress disorder F43.10 and Attention deficit hyperactivity disorder (ADHD), inattentive type, 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 [facility] [address] [id number] [address] [place] [address] Jan, Paranoid schizophrenia F20.0 ; Posttraumatic stress disorder F43.10 and Attention deficit hyperactivity disorder (ADHD), inattentive type, 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 [facility] [address] [id number] [address] [place] [address] [id number] Dec, Dental examination Z01.20 [facility] [address] [id number] [address] [place] [address] [id number] Nov, Dental examination Z01.20 [facility] [address] [id number] [address] [place] [address] [id number] Nov, Dental examination Z01.20 [facility] [address] [id number] [address] [place] [address] [id number] Nov, Dental caries K02.9 [facility] [address] [id number] [address] [place] [address] Nov, High risk medication use Z79 .899 [facility] [address] [id number] [address] [place] [address] Nov, Paranoid schizophrenia F20.0 ; Posttraumatic stress disorder F43.10 ; Attention deficit hyperactivity disorder (ADHD), inattentive type, 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 and Borderline personality disorder in adult F60.3 [facility] [address] [id number] [address] [place] [address] [id number] Oct, Dental caries K02.9 [facility] [address] [id number] [address] [place] [address] Sep, Paranoid schizophrenia F20.0 ; Posttraumatic stress disorder F43.10 and Attention deficit hyperactivity disorder (ADHD), inattentive type, 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 [facility] [address] [id number] [address] [place] [address] Aug, Paranoid schizophrenia F20.0 ; Posttraumatic stress disorder F43.10 and Attention deficit hyperactivity disorder (ADHD), inattentive type, 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 [facility] [address] [id number] [address] [place] [address] Aug, Strep throat J02.0 and Cough R05 [facility] [address] [id number] [address] [place] [address] Aug, [facility] [address] [id number] [address] [place] [id number] 24 Jul, 2016 Paranoid schizophrenia F20.0 ; Posttraumatic stress disorder F43.10 and Attention deficit hyperactivity disorder (ADHD), inattentive type, 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 [facility] [address] [id number] [address] [place] [address] Jul, [facility] [address] [id number] [address] [place] [address] Jun, Paranoid schizophrenia F20.0 ; Posttraumatic stress disorder F43.10 and Attention deficit hyperactivity disorder (ADHD), inattentive type, 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 [facility] [address] [id number] [address] [place] [address] [id number] Jun, Dental examination Z01.20 [facility] [address] [id number] [address] [place] [address] Jun, [facility] [address] [id number] [address] [place] [address] May, Paranoid schizophrenia F20.0 [facility] [address] [id number] [address] [place] [address] May, Paranoid schizophrenia F20.0 ; Posttraumatic stress disorder F43.10 and Attention deficit hyperactivity disorder (ADHD), inattentive type, 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 [facility] [address] [id number] [address] [place] [address] May, [facility] [address] [id number] [address] [place] [address] May, Paranoid schizophrenia F20.0 [facility] [address] [id number] [address] [place] [address] May, [facility] [address] [id number] [address] [place] [address] May, Paranoid schizophrenia F20.0 [facility] [address] [id number] [address] [place] [address] May, Schizoaffective disorder, un specified F25.9 [facility] [address] [id number] [address] [place] [address] May, Schizoaffective disorder, un specified F25.9 [facility] [address] [id number] [address] [place] [address] May, [facility] [address] [id number] [address] [place] [address] May, Paranoid schizophrenia F20.0 [facility] [address] [id number] [address] [place] [address] May, Paranoid schizophrenia F20.0 ; Posttraumatic stress disorder F43.10 and Attention deficit hyperactivity disorder (ADHD), inattentive type, 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 [facility] [address] [id number] [address] [place] [address], [place] [address] Mar, [facility] [address] [id number] [facility] [place] [address] Mar, Paranoid schizophrenia F20.0 ; Posttraumatic stress disorder F43.10 and Attention deficit hyperactivity disorder (ADHD), inattentive type, 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 [facility] [address] [id number] [address] [place] [address], [place] [address] Mar, Paranoid schizophrenia F20.0 [facility] [address] [id number] [address] [place] [address], [place] [address] Mar, Paranoid schizophrenia F20.0 ; Attention deficit hyperactivity disorder (ADHD), inattentive type, 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 and Posttraumatic stress disorder F43.10 [facility] [address] [id number] [address] [place] [address] Mar, [facility] [address] [id number] [address] [place] [address], [place] [address] Mar, Paranoid schizophrenia F20.0 ; Posttraumatic stress disorder F43.10 and Attention deficit hyperactivity disorder (ADHD), inattentive type, 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 [facility] [address] [id number] [address] [place] [address], [place] [address] February, [facility] [address] [id number] [address] [place] [phone] February, [facility] [address] [id number] [address] [place] [address], [place] [address] February, [facility] [address] [id number] [address] [place] [address] February, [facility] [address] [id number] [address] [place] [address], [place] [address] Jan, Paranoid schizophrenia F20.0 [facility] [address] [id number] [address] [place] [address] [id number] Jan, Dental examination Z01.20 [facility] [address] [id number] [address] [place] [address] [id number] Jan, Dental caries K02.9 [facility] [address] [id number] [address] [place] [address] [id number] Jan, Dental examination Z01.20 [facility] [address] [id number] [address] [place] [address] [id number] Dec, Encounter for dental examina tion Z01.20 [facility] [address] [id number] [address] [place] [address] Dec, Paranoid schizophrenia F20.0 [facility] [address] [id number] [address] [place] [address] [id number] Dec, Dental examination Z01.20 [facility] [address] [id number] [address] [place] [address] Dec, [facility] [address] [id number] [address] [place] [address] Dec, Paranoid schizophrenia F20.0 ; Posttraumatic stress disorder F43.10 and Attention deficit hyperactivity disorder (ADHD), inattentive type, 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 [facility] [address] [id number] [address] [place] [phone] Nov, Schizoaffective disorder, un specified F25.9 [facility] [address] [id number] [address] [place] [address] Oct, Paranoid schizophrenia F20.0 [facility] [address] [id number] [address] [place] [id number] Oct, [facility] [address] [id number] [address] [place] [address] Sep, Paranoid schizophrenia F20.0 ; Posttraumatic stress disorder F43.10 and Attention deficit hyperactivity disorder (ADHD), inattentive type, 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 [facility] [address] [id number] [address] [place] [phone] Sep, [facility] [address] [facility] [id number] [address] [place], [place] [address] Sep, Paranoid schizophrenia F20.0 ; Posttraumatic stress disorder F43.10 and Attention deficit hyperactivity disorder (ADHD), inattentive type, 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 [facility] [facility] [address] [facility] [id number] [address] [place] [address] Aug, Paranoid schizophrenia F20.0 [facility] [address] [facility] [id number] [address] [place] [address] Aug, [facility] [address] [facility] [id number] [address] [place] [address] Aug, Posttraumatic stress disorde r F43.10 ; Paranoid schizophrenia F20.0 and Attention deficit hyperactivity disorder (ADHD), inattentive type, 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 [facility] [address] [facility] [id number] [address] [place] [address] Jul, Bipolar disorder, unspecifie d F31.9 [facility] [address] [facility] [id number] [address] [place] [address] Jul, [facility] [address] [facility] [id number] [address] [place] [address] Jun, [facility] [address] [facility] [id number] [address] [place] [address] Jun, Schizoaffective disorder, ch ronic 295.72 ; Posttraumatic stress disorder 309.81 and Attention deficit disorder of childhood without mention of hyperactivity 314.00 [facility] [address] [facility] [id number] [address] [place] [address] May, [facility] [address] [facility] [id number] [address] [place] [address] May, [facility] [address] [facility] [id number] [address] [place] [address] May, Schizoaffective disorder, ch ronic 295.72 ; Posttraumatic stress disorder 309.81 ; Attention deficit disorder of childhood without mention of hyperactivity 314.00 and Bipolar disorder, unspecified 296.80 [facility] [address] [facility] [id number] [address] [place] [address] Apr, Schizoaffective disorder, ch ronic 295.72 [facility] [address] [facility] [id number] [address] [place] [address] Apr, [facility] [address] [id number] [address] [place] [address] Apr, Schizoaffective disorder, ch ronic 295.72 ; Posttraumatic stress disorder 309.81 and Attention deficit disorder of childhood without mention of hyperactivity 314.00 [facility] [address] [facility] [id number] [address] [place] [address] Mar, Disorganized schizophrenia, 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 [facility] [address] [facility] [id number] [address] [place] [address] Mar, [facility] [address] [facility] [id number] [address] [place] [address] Mar, [facility] [address] [facility] [id number] [address] [place] [address] Mar, [facility] [address] [facility] [id number] [address] [place] [address] Mar, [facility] [address] [facility] [id number] [address] [place] [address] February, Schizoaffective disorder, ch ronic 295.72 [facility] [address] [facility] [id number] [address] [place] [address] February, [facility] [address] [facility] [id number] [address] [place] [address] February, Attention 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 ; Posttraumatic stress disorder 309.81 and Schizoaffective disorder, chronic 295.72 [facility] [address] [id number] [address] [place] [address], [place] [address] 29 Jan, 2015 [facility] [address] [id number] [address] [place] [address], [place] [address] 14 Jan, 2015 [facility] [address] [id number] [address] [place] [address], [place] [address] Jan, [facility] [address] [id number] [address] [place] [address], [place] [address] Dec, [facility] [address] [id number] [address] [place] [address], [place] [address] Dec, [facility] [address] [id number] [address] [place] [address], [place] [address] Dec, [facility] [address] [id number] [address] [place] [address], [place] [address] Dec, [facility] [address] [id number] [address] [place] [address], [place] [address] Dec, [facility] [address] [id number] [address] [place] [address], [place] [address] Dec, [facility] [address] [id number] [address] [place] [address], [place] [address] Dec, [facility] [address] [id number] [address] [place] [address], [place] [address] Dec, [facility] [address] [id number] [address] [place] [address], [place] [address] Nov, [facility] [address] [id number] [address] [place] [address], [place] [address] Nov, [facility] [address] [id number] [address] [place] [address], [place] [address] Nov, [facility] [address] [id number] [address] [place] [address], [place] [address] Nov, [facility] [address] [id number] [address] [place] [address], [place] [address] Nov, [facility] [address] [id number] [address] [place] [address], [place] [address] Nov, [facility] [address] [id number] [address] [place] [address], [place] [address] Nov, [facility] [address] [id number] [address] [place] [address], [place] [address] Nov, [facility] [address] [id number] [address] [place] [address], [place] [address] Nov, [facility] [address] [id number] [address] [place] [address], [place] [address] Nov, [facility] [address] [id number] [address] [place] [address], [place] [address] Oct, [facility] [address] [id number] [address] [place] [address], [place] [address] Oct, [facility] [address] [id number] [address] [place] [address], [place] [address] Oct, [facility] [address] [id number] [address] [place] [address], [place] [address] Oct, [facility] [address] [id number] [address] [place] [address], [place] [address] Oct, [facility] [address] [id number] [address] [place] [address], [place] [address] Oct, [facility] [address] [id number] [address] [place] [address], [place] [address] Oct, [facility] [address] [id number] [address] [place] [address], [place] [address] Sep, [facility] [address] [id number] [address] [place] [address], [place] [address] Sep, [facility] [address] [id number] [address] [place] [address], [place] [address] Sep, [facility] [address] [id number] [address] [place] [address], [place] [address] 15 Sep, 2014 [facility] [address] [id number] [address] [place] [address], [place] [address] Aug, [facility] [address] [id number] [address] [place] [address], [place] [address] Aug, [facility] [address] [id number] [address] [place] [address], [place] [address] Aug, [facility] [address] [id number] [address] [place] [address], [place] [address] Aug, [facility] [address] [id number] [address] [place] [address], [place] [address] Aug, [facility] [address] [id number] [address] [place] [address], [place] [address] Aug, [facility] [address] [id number] [address] [place] [address], [place] [address] Jul, [facility] [address] [id number] [address] [place] [address], [place] [address] 29 Jul, 2014 [facility] [address] [id number] [address] [place] [address], [place] [address] 24 Jul, 2014 [facility] [address] [id number] [address] [place] [address], [place] [address] 24 Jul, 2014 [facility] [address] [id number] [address] [place] [address], [place] [address] 15 Jul, 2014 [facility] [address] [id number] [address] [place] [address], [place] [address] 15 Jul, 2014 [facility] [address] [id number] [address] [place] [address], [place] [address] 27 Jun, 2014 [facility] [address] [id number] [address] [place] [address], [place] [address] 27 Jun, 2014 [facility] [address] [id number] [address] [place] [address], [place] [address] Jun, 2013 [facility] [address] [id number] [facility] [place] [address] 26 Jun, 2013 [facility] [address] [id number] [facility] [place] [address] Jun, 2013 [facility] [address] [id number] [address] [place] [address], [place] [address] Jun, 2013 [facility] [address] [id number] [address] [place] [address], [place] [address] 16 Jun, 2013 [facility] [address] [id number] [address] [place] [address], [place] [address] 16 Jun, 2013 [facility] [address] [id number] [address] [place] [address], [place] [address] Jun, 2013 [facility] [address] [id number] [address] [place] [address], [place] [address] Jun, 2013 [facility] [address] [id number] [address] [place] [address], [place] [address] Jun, [facility] [address] [id number] [address] [place] [address], [place] [address] May, [facility] [address] [id number] [address] [place] [address], [place] [address] May, [facility] [address] [id number] [address] [place] [address], [place] [address] May, [facility] [address] [id number] [address] [place] [address], [place] [address] May, [facility] [address] [id number] [address] [place] [address], [place] [address] May, [facility] [address] [id number] [address] [place] [address], [place] [address] May, [facility] [address] [id number] [address] [place] [address], [place] [address] May, [facility] [address] [id number] [address] [place] [address], [place] [address] May, [facility] [address] [id number] [address] [place] [address], [place] [address] May, [facility] [address] [id number] [address] [place] [address], [place] [address] May, [facility] [address] [id number] [address] [place] [address], [place] [address] Apr, [facility] [address] [id number] [address] [place] [address], [place] [address] Apr, [facility] [address] [id number] [address] [place] [address], [place] [address] Apr, [facility] [address] [id number] [address] [place] [address], [place] [address] Apr, [facility] [address] [id number] [address] [place] [address], [place] [address] Apr, [facility] [address] [id number] [address] [place] [address], [place] [address] Apr, [facility] [address] [id number] [address] [place] [address], [place] [address] Apr, [facility] [address] [id number] [address] [place] [address], [place] [address] Apr, [facility] [address] [id number] [address] [place] [address], [place] [address] Apr, [facility] [address] [id number] [address] [place] [address], [place] [address] Apr, [facility] [address] [id number] [address] [place] [address], [place] [address] Mar, [facility] [address] [id number] [address] [place] [address], [place] [address] Mar, [facility] [address] [id number] [address] [place] [address], [place] [address] Mar, [facility] [address] [id number] [address] [place] [address], [place] [address] Mar, [facility] [address] [id number] [address] [place] [address], [place] [address] Mar, [facility] [address] [id number] [address] [place] [address], [place] [address] Mar, [facility] [address] [id number] [address] [place] [address], [place] [address] Mar, [facility] [address] [id number] [address] [place] [address], [place] [address] Mar, [facility] [address] [id number] [address] [place] [address], [place] [address] Mar, [facility] [address] [id number] [address] [place] [address], [place] [address] Mar, [facility] [address] [id number] [address] [place] [address], [place] [address] Mar, [facility] [address] [id number] [address] [place] [address], [place] [address] Mar, [facility] [address] [id number] [address] [place] [address], [place] [address] Mar, [facility] [address] [id number] [address] [place] [address], [place] [address] Mar, [facility] [address] [id number] [address] [place] [address], [place] [address] Mar, [facility] [address] [id number] [address] [place] [address], [place] [address] Mar, [facility] [address] [id number] [address] [place] [address], [place] [address] Mar, [facility] [address] [id number] [address] [place] [address], [place] [address] 09 Mar, 2014 [facility] [address] [id number] [address] [place] [address], [place] [address] Mar, [facility] [address] [id number] [facility] [place] [address] Mar, [facility] [address] [id number] [address] [place] [address], [place] [address] February, [facility] [address] [id number] [address] [place] [address], [place] [address] February, [facility] [address] [id number] [address] [place] [address], [place] [address] February, [facility] [address] [id number] [address] [place] [address], [place] [address] February, [facility] [address] [id number] [address] [place] [address], [place] [address] February, [facility] [address] [id number] [address] [place] [address], [place] [address] February, [facility] [address] [id number] [address] [place] [address], [place] [address] February, [facility] [address] [id number] [address] [place] [address], [place] [address] February, [facility] [address] [id number] [address] [place] [address], [place] [address] February, [facility] [address] [id number] [address] [place] [address], [place] [address] February, [facility] [address] [id number] [address] [place] [address], [place] [address] February, [facility] [address] [id number] [address] [place] [address], [place] [address] February, [facility] [address] [id number] [address] [place] [address], [place] [address] February, [facility] [address] [id number] [address] [place] [address], [place] [address] February, [facility] [address] [id number] [address] [place] [address], [place] [address] February, [facility] [address] [id number] [address] [place] [address], [place] [address] February, [facility] [address] [id number] [address] [place] [address], [place] [address] February, [facility] [address] [id number] [address] [place] [address], [place] [address] February, [facility] [address] [id number] [address] [place] [address], [place] [address] February, [facility] [address] [id number] [address] [place] [address], [place] [address] February, [facility] [address] [id number] [address] [place] [address], [place] [address] February, [facility] [address] [id number] [address] [place] [address], [place] [address] Jan, [facility] [address] [id number] [address] [place] [address], [place] [address] Jan, [facility] [address] [id number] [address] [place] [address], [place] [address] Jan, [facility] [address] [id number] [address] [place] [address], [place] [address] Jan, [facility] [address] [id number] [address] [place] [address], [place] [address] Jan, [facility] [address] [id number] [address] [place] [address], [place] [address] Jan, [facility] [address] [id number] [address] [place] [address], [place] [address] Jan, [facility] [address] [id number] [address] [place] [address], [place] [address] Jan, [facility] [address] [id number] [address] [place] [address], [place] [address] Dec, [facility] [address] [id number] [facility] [place] [address] 20 Dec, 2013 [facility] [address] [id number] [facility] [place] [address] 20 Dec, 2013 [facility] [address] [id number] [facility] [place] [address] 19 Dec, 2013 [facility] [address] [id number] [address] [place] [address], [place] [address] 19 Dec, 2013 [facility] [address] [id number] [address] [place] [address], [place] [address] 15 Dec, 2013 [facility] [address] [id number] [address] [place] [address], [place] [address] 15 Dec, 2013 [facility] [address] [id number] [address] [place] [address], [place] [address] 11 Dec, 2013 [facility] [address] [id number] [address] [place] [address], [place] [address] 10 Dec, 2013 [facility] [address] [id number] [address] [place] [address], [place] [address] 10 Dec, 2013 [facility] [address] [id number] [address] [place] [address], [place] [address] 18 Nov, 2013 [facility] [address] [id number] [address] [place] [address], [place] [address] 17 Nov, 2013 [facility] [address] [id number] [address] [place] [address], [place] [address] Nov, [facility] [facility] [address] [id number] [address] [place] [address], [place] [address] 05 Nov, 2013 [facility] [place] [facility] [address] [id number] [address] [place] [address], [place] [address] 05 Nov, 2013 [facility] [place] [facility] [address] [id number] [address] [place] [address], [place] [address] Oct, [facility] [place] [facility] [address] [id number] [address] [place] [address] Oct, [facility] [address] [id number] [address] [place] [address], [place] [address] Oct, [facility] [address] [id number] [address] [place] [address], [place] [address] Sep, [facility] [address] [id number] [address] [place] [address], [place] [address] Sep, [facility] [address] [id number] [address] [place] [address], [place] [address] Sep, [facility] [address] [id number] [address] [place] [address], [place] [address] Sep, [facility] [address] [id number] [address] [place] [address], [place] [address] Aug, [facility] [address] [id number] [address] [place] [address], [place] [address] Aug, [facility] [address] [id number] [address] [place] [address], [place] [address] Jul, [facility] [address] [id number] [address] [place] [address], [place] [address] Jul, [facility] [address] [id number] [address] [place] [address], [place] [address] Jul, [facility] [address] [id number] [address] [place] [address], [place] [address] Jul, [facility] [address] [id number] [address] [place] [address], [place] [address] Jul, [facility] [address] [id number] [address] [place] [address], [place] [address] Jun, [facility] [address] [id number] [address] [place] [address], [place] [address] Jun, [facility] [address] [id number] [address] [place] [address], [place] [address] 19 Jun, 2013 [facility] [place] [facility] [address] [id number] [address] [place] [address], [place] [address] 18 Jun, 2013 [facility] [address] [id number] [address] [place] [address], [place] [address] 16 Jun, 2013 [facility] [address] [id number] [address] [place] [address], [place] [address] 12 Jun, 2013 [facility] [address] [id number] [address] [place] [address], [place] [address] 11 Jun, 2013 [facility] [address] [id number] [address] [place] [address], [place] [address] 30 May, 2013 [facility] [address] [id number] [address] [place] [address], [place] [address] May, [facility] [address] [id number] [address] [place] [address], [place] [address] Apr, [facility] [address] [id number] [address] [place] [address], [place] [address] Apr, [facility] [address] [id number] [address] [place] [address], [place] [address] Apr, [facility] [address] [id number] [address] [place] [address], [place] [address] Mar, [facility] [address] [id number] [address] [place] [address], [place] [address] Mar, [facility] [address] [id number] [address] [place] [address], [place] [address] February, [facility] [address] [id number] [address] [place] [address], [place] [address] February, [facility] [address] [id number] [address] [place] [address], [place] [address] February, [facility] [address] [id number] [address] [place] [address], [place] [address] February, [facility] [address] [id number] [address] [place] [address], [place] [address] 19 Jan, 2013 [facility] [address] [id number] [address] [place] [address], [place] [address] 17 Jan, 2013 [facility] [address] [id number] [address] [place] [address], [place] [address] 16 Jan, 2013 [facility] [facility] [address] [id number] [address] [place] [address], [place] [address] 29 Dec, 2012 [facility] [address] [id number] [address] [place] [address], [place] [address] Dec, [facility] [address] [id number] [address] [place] [address], [place] [address] Dec, [facility] [address] [id number] [address] [place] [address], [place] [address] 08 Dec, 2012 [facility] [address] [id number] [address] [place] [address], [place] [address] Nov, [facility] [address] [id number] [address] [place] [address], [place] [address] Nov, [facility] [address] [id number] [address] [place] [address], [place] [address] Oct, [facility] [address] [id number] [address] [place] [address], [place] [address] Oct, [facility] [address] [id number] [address] [place] [address], [place] [address] Oct, [facility] [address] [id number] [address] [place] [address], [place] [address] Oct, [facility] [address] [id number] [address] [place] [address], [place] [address] Aug, [facility] [address] [id number] [address] [place] [address], [place] [address] Aug, [facility] [address] [id number] [address] [place] [address], [place] [address] 18 Jun, 2012 [facility] [address] [id number] [facility] [place] [address] May, [facility] [address] [id number] [address] [place] [address], [place] [address] May, [facility] [address] [id number] [address] [place] [address], [place] [address] Apr, [facility] [address] [id number] [address] [place] [address], [place] [address] Apr, [facility] [address] [id number] [address] [place] [address], [place] [address] Apr, [facility] [address] [id number] [address] [place] [address], [place] [address] Mar, [facility] [address] [id number] [address] [place] [address], [place] [address] Mar, [facility] [address] [id number] [address] [place] [address], [place] [address] Mar, [facility] [address] [id number] [address] [place] [address], [place] [address] Mar, [facility] [address] [id number] [address] [place] [address], [place] [address] Mar, [facility] [address] [id number] [address] [place] [address], [place] [address] February, [facility] [address] [id number] [address] [place] [address], [place] [address] February, [facility] [address] [id number] [address] [place] [address], [place] [address] February, [facility] [address] [id number] [address] [place] [address], [place] [address] February, [facility] [address] [id number] [address] [place] [address], [place] [address] February, [facility] [address] [id number] [address] [place] [address], [place] [address] February, [facility] [address] [id number] [address] [place] [address], [place] [address] February, [facility] [address] [id number] [address] [place] [address], [place] [address] Jan, [facility] [address] [id number] [address] [place] [address], [place] [address] Jan, [facility] [address] [id number] [address] [place] [address], [place] [address] 17 Jan, 2012 [facility] [address] [id number] [address] [place] [address], [place] [address] Jan, [facility] [address] [id number] [address] [place] [address], [place] [address] Jan, [facility] [address] [id number] [address] [place] [address], [place] [address] Jan, [facility] [address] [id number] [address] [place] [address], [place] [address] 30 Dec, 2011 [facility] [address] [id number] [address] [place] [address], [place] [address] 24 Dec, 2011 [facility] [address] [id number] [address] [place] [address], [place] [address] Dec, [facility] [address] [id number] [address] [place] [address], [place] [address] Dec, [facility] [address] [id number] [address] [place] [address], [place] [address] Dec, [facility] [address] [id number] [address] [place] [address], [place] [address] Nov, [facility] [address] [id number] [address] [place] [address], [place] [address] Nov, [facility] [address] [id number] [address] [place] [address], [place] [address] Nov, [facility] [address] [id number] [address] [place] [address], [place] [address] 14 Nov, 2011 [facility] [address] [id number] [address] [place] [address], [place] [address] 10 Nov, 2011 [facility] [address] [id number] [address] [place] [address], [place] [address] Nov, [facility] [address] [id number] [address] [place] [address], [place] [address] Oct, [facility] [address] [id number] [address] [place] [address], [place] [address] Oct, [facility] [address] [id number] [address] [place] [address], [place] [address] Oct, [facility] [address] [id number] [address] [place] [address], [place] [address] Oct, [facility] [address] [id number] [address] [place] [address], [place] [address] Oct, [facility] [address] [id number] [address] [place] [address], [place] [address] Sep, [facility] [address] [id number] [address] [place] [address], [place] [address] Sep, [facility] [address] [id number] [address] [place] [address], [place] [address] Sep, [facility] [address] [id number] [address] [place] [address], [place] [address] 14 Sep, 2011 [facility] [address] [id number] [address] [place] [address], [place] [address] 14 Sep, 2011 [facility] [address] [id number] [address] [place] [address], [place] [address] 13 Sep, 2011 [facility] [address] [id number] [address] [place] [address], [place] [address] 12 Sep, 2011 [facility] [address] [id number] [address] [place] [address], [place] [address] Sep, [facility] [address] [id number] [address] [place] [address], [place] [address] Sep, [facility] [address] [id number] [address] [place] [address], [place] [address] Aug, [facility] [address] [id number] [address] [place] [address], [place] [address] Aug, [facility] [address] [id number] [address] [place] [address], [place] [address] Aug, [facility] [address] [id number] [address] [place] [address], [place] [address] Aug, [facility] [address] [id number] [address] [place] [address], [place] [address] Aug, [facility] [address] [id number] [address] [place] [address], [place] [address] Aug, [facility] [address] [id number] [address] [place] [address], [place] [address] Aug, [facility] [address] [id number] [address] [place] [address], [place] [address] Aug, [facility] [address] [id number] [address] [place] [address], [place] [address] Aug, [facility] [address] [id number] [address] [place] [address], [place] [address] Aug, [facility] [address] [id number] [address] [place] [address], [place] [address] Aug, [facility] [address] [id number] [address] [place] [address], [place] [address] Aug, [facility] [address] [id number] [address] [place] [address], [place] [address] Jul, [facility] [address] [id number] [address] [place] [address], [place] [address] Jul, [facility] [address] [id number] [address] [place] [address] Jul, [facility] [address] [id number] [address] [place] [address] Jul, [facility] [address] [id number] [address] [place] [address] Jul, [facility] [address] [id number] [address] [place] [address] Jul, [facility] [address] [id number] [address] [place] [address] Jul, [facility] [address] [id number] [address] [place] [address] Jul, [facility] [address] [id number] [address] [place] [address] Jul, [facility] [address] [id number] [address] [place] [address] Jul, [facility] [address] [id number] [address] [place] [address] Nov, [facility] [address] [id number] [address] [place] [address] Aug, [facility] [address] [id number] [address] [place] [address] Aug, [facility] [address] [id number] [address] [place] [address] Aug, [facility] [address] [id number] [address] [place] [address] Aug, [facility] [address] [id number] [address] [place] [address] Jul, IMMUNIZATIONS No Known Immunizations SOCIAL HISTORY Never Assessed REASON FOR VISIT EMR[place] [place] CARE VITAL SIGNS MEDICATIONS Unknown [...]
--- OUTSIDE RECORDS SUMMARY | 2020-04-04 02:13 | XMS REPORT ---
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 Active 07504857 Problem Generalized anxiety disorder 300.02 A ctive 73888093 Problem Obsessive-compulsive disorders 300.3 Active 753062166 Problem Catatonic schizophrenia, 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 562772892 Problem Disorganized schizophrenia, 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 10208014 Problem Paranoid schizophrenia F20.0 Active 52487105 Problem Borderline personality disorder F60.3 Active 45049803 Problem Paranoid schizophrenia, unspecified condition 295.30 Active 08662201 Problem Schizoaffective disorder, depressive type F25.1 Active 47105922 Problem Bipolar disorder, unspecified 296.80 Active 12310313 Problem Schizoaffective disorder, unspecified F25.9 Active 62096912 Problem Attention deficit hyperactivity disorder (ADHD), inattentive type, 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 24597600 Problem Posttraumatic stress disorder F43.10 Active 49351867 Problem High risk medication use Z79.899 Activ e [id number] ALLERGIES No Information ENCOUNTERS Encounter Location Date Diagnosis [facility] [address] [facility] [id number] [address] [place] [address] Jan, [facility] [address] [facility] [id number] [address] [place] [address] Dec, Paranoid schizophrenia F20.0 ; Posttraumatic stress disorder F43.10 ; Attention deficit hyperactivity disorder (ADHD), inattentive type, 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 and Borderline personality disorder F60.3 [facility] [address] [facility] [id number] [address] [place] [address] Dec, Paranoid schizophrenia F20.0 ; Posttraumatic stress disorder F43.10 ; Attention deficit hyperactivity disorder (ADHD), inattentive type, 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 and Borderline personality disorder F60.3 [facility] [address] [place] [id number] [address] [place] [address] Oct, Paranoid schizophrenia F20.0 ; Posttraumatic stress disorder F43.10 ; Attention deficit hyperactivity disorder (ADHD), inattentive type, 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 and Borderline personality disorder F60.3 [facility] [address] [place] [id number] [address] [place] [address] Oct, Paranoid schizophrenia F20.0 ; Posttraumatic stress disorder F43.10 ; Attention deficit hyperactivity disorder (ADHD), inattentive type, 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 and Borderline personality disorder F60.3 [facility] [address] [place] [id number] [address] [place] [phone] Aug, [facility] [address] [place] [id number] [place] [address] Aug, Paranoid schizophrenia F20.0 ; Posttraumatic stress disorder F43.10 ; Attention deficit hyperactivity disorder (ADHD), inattentive type, 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 and Borderline personality disorder F60.3 [facility] [address] [facility] [id number] [address] [place] [address] Jul, Dry skin dermatitis L85.3 [facility] [address] [facility] [id number] [address] [place] [address] Jul, [facility] [address] [facility] [id number] [address] [place] [phone] Jul, Paranoid schizophrenia F20.0 [facility] [address] [facility] [id number] [address] [place] [phone] May, Paranoid schizophrenia F20.0 ; Posttraumatic stress disorder F43.10 ; Attention deficit hyperactivity disorder (ADHD), inattentive type, 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 and Borderline personality disorder F60.3 [facility] [address] [facility] [id number] [address] [place] [phone] May, [facility] [address] [id number] [place] [address] May, Paranoid schizophrenia F20.0 [facility] [address] [id number] [address] [place] [address], [place] [address] May, Paranoid schizophrenia F20.0 ; Posttraumatic stress disorder F43.10 ; Attention deficit hyperactivity disorder (ADHD), inattentive type, 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 and Borderline personality disorder F60.3 [facility] [address] [id number] [facility] [place] [address] Apr, [facility] [address] [id number] [address] [place] [address], [place] [address] Apr, Paranoid schizophrenia F20.0 ; Posttraumatic stress disorder F43.10 ; Attention deficit hyperactivity disorder (ADHD), inattentive type, 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 and Borderline personality disorder F60.3 [facility] [address] [id number] [address] [place] [phone] Apr, [facility] [address] [id number] [address] [place] [address] Apr, Schizoaffective disorder, de pressive type F25.1 and Borderline personality disorder F60.3 [facility] [address] [id number] [address] [place] [address] Apr, Paranoid schizophrenia F20.0 ; Posttraumatic stress disorder F43.10 ; Attention deficit hyperactivity disorder (ADHD), inattentive type, 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 and Borderline personality disorder F60.3 [facility] [address] [id number] [address] [place] [address] Apr, [facility] [address] [id number] [address] [place] [address] Apr, Paranoid schizophrenia F20.0 ; Posttraumatic stress disorder F43.10 ; Attention deficit hyperactivity disorder (ADHD), inattentive type, 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 and Borderline personality disorder F60.3 [facility] [address] [id number] [address] [place] [address] Apr, [facility] [address] [id number] [address] [place] [address] Mar, Paranoid schizophrenia F20.0 [facility] [address] [id number] [address] [place] [address] Mar, [facility] [address] [id number] [address] [place] [address] Mar, Paranoid schizophrenia F20.0 ; Posttraumatic stress disorder F43.10 ; Attention deficit hyperactivity disorder (ADHD), inattentive type, 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 and Borderline personality disorder F60.3 [facility] [address] [id number] [address] [place] [address] February, Paranoid schizophrenia F20.0 [facility] [address] [id number] [address] [place] [address] February, Paranoid schizophrenia F20.0 ; Posttraumatic stress disorder F43.10 ; Attention deficit hyperactivity disorder (ADHD), inattentive type, 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 and Borderline personality disorder F60.3 [facility] [address] [id number] [address] [place] [address] February, Paranoid schizophrenia F20.0 ; Posttraumatic stress disorder F43.10 ; Attention deficit hyperactivity disorder (ADHD), inattentive type, 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 and Borderline personality disorder F60.3 [facility] [address] [id number] [address] [place] [address] February, [facility] [address] [id number] [address] [place] [address] February, Paranoid schizophrenia F20.0 [facility] [address] [id number] [address] [place] [address] February, Paranoid schizophrenia F20.0 [facility] [address] [id number] [address] [place] [address] February, Paranoid schizophrenia F20.0 ; Posttraumatic stress disorder F43.10 ; Attention deficit hyperactivity disorder (ADHD), inattentive type, 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 and Borderline personality disorder F60.3 [facility] [address] [id number] [address] [place] [address] Jan, Paranoid schizophrenia F20.0 ; Posttraumatic stress disorder F43.10 ; Attention deficit hyperactivity disorder (ADHD), inattentive type, 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 and Borderline personality disorder F60.3 [facility] [address] [id number] [address] [place] [address] Jan, Paranoid schizophrenia F20.0 [facility] [address] [id number] [address] [place] [address] Jan, Paranoid schizophrenia F20.0 [facility] [address] [facility] [id number] [address] [place] [address] Jan, Paranoid schizophrenia F20.0 ; Posttraumatic stress disorder F43.10 ; Attention deficit hyperactivity disorder (ADHD), inattentive type, 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 and Borderline personality disorder F60.3 [facility] [address] [id number] [address] [place] [address] Dec, [facility] [address] [id number] [address] [place] [address] Nov, Paranoid schizophrenia F20.0 ; Posttraumatic stress disorder F43.10 ; Attention deficit hyperactivity disorder (ADHD), inattentive type, 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 and Borderline personality disorder F60.3 [facility] [address] [id number] [address] [place] [address] Nov, [facility] [address] [id number] [address] [place] [address] Oct, Paranoid schizophrenia F20.0 [facility] [address] [facility] [id number] [address] [place] [address] Oct, Paranoid schizophrenia F20.0 ; Posttraumatic stress disorder F43.10 ; Attention deficit hyperactivity disorder (ADHD), inattentive type, 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 ; Borderline personality disorder F60.3 and Other fdc (current) drug therapy Z79.899 [facility] [address] [id number] [address] [place] [address] Oct, [facility] [address] [facility] [id number] [address] [place] [address] Oct, [facility] [address] [id number] [address] [place] [phone] Sep, [facility] [address] [id number] [address] [place] [address] Sep, Paranoid schizophrenia F20.0 ; Posttraumatic stress disorder F43.10 ; Attention deficit hyperactivity disorder (ADHD), inattentive type, 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 and Borderline personality disorder F60.3 [facility] [address] [facility] [id number] [address] [place] [phone] Sep, Paranoid schizophrenia F20.0 [facility] [address] [id number] [address] [place] [address] Aug, Paranoid schizophrenia F20.0 ; Posttraumatic stress disorder F43.10 ; Attention deficit hyperactivity disorder (ADHD), inattentive type, 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 and Borderline personality disorder F60.3 [facility] [address] [facility] [id number] [address] [place] [address] Aug, Paranoid schizophrenia F20.0 ; Posttraumatic stress disorder F43.10 ; Attention deficit hyperactivity disorder (ADHD), inattentive type, 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 and Borderline personality disorder F60.3 [facility] [address] [id number] [address] [place] [phone] Aug, [facility] [address] [facility] [id number] [address] [place] [address] Jul, Paranoid schizophrenia F20.0 ; Posttraumatic stress disorder F43.10 ; Attention deficit hyperactivity disorder (ADHD), inattentive type, 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 and Borderline personality disorder F60.3 [facility] [address] [id number] [address] [place] [address] Jul, Paranoid schizophrenia F20.0 [facility] [address] [id number] [address] [place] [address] Jul, Paranoid schizophrenia F20.0 ; Posttraumatic stress disorder F43.10 ; Attention deficit hyperactivity disorder (ADHD), inattentive type, 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 and Borderline personality disorder F60.3 [facility] [address] [id number] [address] [place] [address] Jun, Paranoid schizophrenia F20.0 ; Posttraumatic stress disorder F43.10 ; Attention deficit hyperactivity disorder (ADHD), inattentive type, 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0 [facility] [address] [facility] [id number] [address] [place] [address] May, [facility] [address] [id number] [address] [place] [address] May, Attention deficit hyperactiv ity disorder (ADHD), inattentive type, mild F90.0 [facility] [address] [id number] [address] [place] [address] May, Paranoid schizophrenia F20.0 ; Posttraumatic stress disorder F43.10 ; Attention deficit hyperactivity disorder (ADHD), inattentive type, 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 and Other fdc (current) drug therapy Z79.899 [facility] [address] [id number] [address] [place] [address] Apr, Paranoid schizophrenia F20.0 [facility] [address] [id number] [address] [place] [address] Apr, Paranoid schizophrenia F20.0 ; Posttraumatic stress disorder F43.10 and Attention deficit hyperactivity disorder (ADHD), inattentive type, 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 [facility] [address] [id number] [address] [place] [phone] February, [facility] [address] [id number] [address] [place] [address] February, Paranoid schizophrenia F20.0 ; Posttraumatic stress disorder F43.10 and Attention deficit hyperactivity disorder (ADHD), inattentive type, 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 [facility] [address] [id number] [address] [place] [address] February, Paranoid schizophrenia F20.0 ; Posttraumatic stress disorder F43.10 and Attention deficit hyperactivity disorder (ADHD), inattentive type, 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 [facility] [address] [id number] [address] [place] [address] Jan, Paranoid schizophrenia F20.0 ; Posttraumatic stress disorder F43.10 and Attention deficit hyperactivity disorder (ADHD), inattentive type, 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 [facility] [address] [id number] [address] [place] [id number] Dec, Dental examination Z01.20 [facility] [address] [id number] [address] [place] [phone] Nov, Dental examination Z01.20 [facility] [address] [id number] [address] [place] [address] [id number] Nov, Dental examination Z01.20 [facility] [address] [id number] [address] [place] [address] [id number] Nov, Dental caries K02.9 [facility] [address] [id number] [address] [place] [address] Nov, High risk medication use Z79 .899 [facility] [address] [id number] [address] [place] [address] Nov, Paranoid schizophrenia F20.0 ; Posttraumatic stress disorder F43.10 ; Attention deficit hyperactivity disorder (ADHD), inattentive type, 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 and Borderline personality disorder in adult F60.3 [facility] [address] [id number] [address] [place] [address] [id number] Oct, Dental caries K02.9 [facility] [address] [id number] [address] [place] [address] Sep, Paranoid schizophrenia F20.0 ; Posttraumatic stress disorder F43.10 and Attention deficit hyperactivity disorder (ADHD), inattentive type, 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 [facility] [address] [id number] [address] [place] [phone] Aug, Paranoid schizophrenia F20.0 ; Posttraumatic stress disorder F43.10 and Attention deficit hyperactivity disorder (ADHD), inattentive type, 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 [facility] [address] [id number] [address] [place] [address] Aug, Strep throat J02.0 and Cough R05 [facility] [address] [id number] [address] [place] [phone] Aug, [facility] [address] [id number] [address] [place] [phone] 24 Jul, 2016 Paranoid schizophrenia F20.0 ; Posttraumatic stress disorder F43.10 and Attention deficit hyperactivity disorder (ADHD), inattentive type, 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 [facility] [address] [id number] [address] [place] [address] Jul, [facility] [address] [id number] [address] [place] [address] Jun, Paranoid schizophrenia F20.0 ; Posttraumatic stress disorder F43.10 and Attention deficit hyperactivity disorder (ADHD), inattentive type, 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 [facility] [address] [id number] [address] [place] [address] [id number] Jun, Dental examination Z01.20 [facility] [address] [id number] [address] [place] [address] Jun, [facility] [address] [id number] [address] [place] [phone] May, Paranoid schizophrenia F20.0 [facility] [address] [id number] [address] [place] [address] May, Paranoid schizophrenia F20.0 ; Posttraumatic stress disorder F43.10 and Attention deficit hyperactivity disorder (ADHD), inattentive type, 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 [facility] [address] [id number] [address] [place] [address] May, [facility] [address] [id number] [address] [place] [phone] May, Paranoid schizophrenia F20.0 [facility] [address] [id number] [address] [place] [phone] May, [facility] [address] [id number] [address] [place] [address] May, Paranoid schizophrenia F20.0 [facility] [address] [id number] [address] [place] [address] May, Schizoaffective disorder, un specified F25.9 [facility] [address] [id number] [address] [place] [address] May, Schizoaffective disorder, un specified F25.9 [facility] [address] [id number] [address] [place] [address] May, [facility] [address] [id number] [address] [place] [phone] May, Paranoid schizophrenia F20.0 [facility] [address] [id number] [address] [place] [phone] May, Paranoid schizophrenia F20.0 ; Posttraumatic stress disorder F43.10 and Attention deficit hyperactivity disorder (ADHD), inattentive type, 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 [facility] [address] [id number] [address] [place] [address], [place] [address] Mar, [facility] [address] [id number] [facility] [place] [address] Mar, Paranoid schizophrenia F20.0 ; Posttraumatic stress disorder F43.10 and Attention deficit hyperactivity disorder (ADHD), inattentive type, 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 [facility] [address] [id number] [address] [place] [address], [place] [address] Mar, Paranoid schizophrenia F20.0 [facility] [address] [id number] [address] [place] [address], [place] [address] Mar, Paranoid schizophrenia F20.0 ; Attention deficit hyperactivity disorder (ADHD), inattentive type, 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 and Posttraumatic stress disorder F43.10 [facility] [address] [id number] [address] [place] [phone] Mar, [facility] [address] [id number] [address] [place] [address], [place] [address] Mar, Paranoid schizophrenia F20.0 ; Posttraumatic stress disorder F43.10 and Attention deficit hyperactivity disorder (ADHD), inattentive type, 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 [facility] [address] [id number] [address] [place] [address], [place] [address] February, [facility] [address] [id number] [address] [place] [phone] February, [facility] [address] [id number] [address] [place] [address], [place] [address] February, [facility] [address] [id number] [address] [place] [phone] February, [facility] [address] [id number] [address] [place] [address], [place] [address] Jan, Paranoid schizophrenia F20.0 [facility] [address] [id number] [address] [place] [id number] Jan, Dental examination Z01.20 [facility] [address] [id number] [address] [place] [address] [id number] Jan, Dental caries K02.9 [facility] [address] [id number] [address] [place] [address] [id number] Jan, Dental examination Z01.20 [facility] [address] [id number] [address] [place] [address] [id number] Dec, Encounter for dental examina tion Z01.20 [facility] [address] [id number] [address] [place] [address] Dec, Paranoid schizophrenia F20.0 [facility] [address] [id number] [address] [place] [address] [id number] Dec, Dental examination Z01.20 [facility] [address] [id number] [address] [place] [address] Dec, [facility] [address] [id number] [address] [place] [phone] Dec, Paranoid schizophrenia F20.0 ; Posttraumatic stress disorder F43.10 and Attention deficit hyperactivity disorder (ADHD), inattentive type, 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 [facility] [address] [id number] [address] [place] [phone] Nov, Schizoaffective disorder, un specified F25.9 [facility] [address] [id number] [address] [place] [phone] Oct, Paranoid schizophrenia F20.0 [facility] [address] [id number] [address] [place] [address] Oct, [facility] [address] [id number] [address] [place] [phone] Sep, Paranoid schizophrenia F20.0 ; Posttraumatic stress disorder F43.10 and Attention deficit hyperactivity disorder (ADHD), inattentive type, 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 [facility] [address] [id number] [address] [place] [phone] Sep, [facility] [address] [facility] [id number] [address] [place] [address] Sep, Paranoid schizophrenia F20.0 ; Posttraumatic stress disorder F43.10 and Attention deficit hyperactivity disorder (ADHD), inattentive type, 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 [facility] [address] [facility] [id number] [address] [place] [phone] Aug, Paranoid schizophrenia F20.0 [facility] [address] [facility] [id number] [address] [place] [id number] Aug, [facility] [address] [facility] [id number] [address] [place] [phone] Aug, Posttraumatic stress disorde r F43.10 ; Paranoid schizophrenia F20.0 and Attention deficit hyperactivity disorder (ADHD), inattentive type, 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 [facility] [address] [facility] [id number] [address] [place] [id number] Jul, Bipolar disorder, unspecifie d F31.9 [facility] [address] [facility] [id number] [address] [place] [id number] Jul, [facility] [address] [facility] [id number] [address] [place] [id number] Jun, [facility] [address] [facility] [id number] [address] [place] [address] Jun, Schizoaffective disorder, ch ronic 295.72 ; Posttraumatic stress disorder 309.81 and Attention deficit disorder of childhood without mention of hyperactivity 314.00 [facility] [address] [facility] [id number] [address] [place] [address] May, [facility] [address] [facility] [id number] [address] [place] [id number] May, [facility] [address] [facility] [id number] [address] [place] [address] May, Schizoaffective disorder, ch ronic 295.72 ; Posttraumatic stress disorder 309.81 ; Attention deficit disorder of childhood without mention of hyperactivity 314.00 and Bipolar disorder, unspecified 296.80 [facility] [address] [facility] [id number] [address] [place] [id number] Apr, Schizoaffective disorder, ch ronic 295.72 [facility] [address] [facility] [id number] [address] [place] [address] Apr, [facility] [address] [id number] [address] [place] [address] Apr, Schizoaffective disorder, ch ronic 295.72 ; Posttraumatic stress disorder 309.81 and Attention deficit disorder of childhood without mention of hyperactivity 314.00 [facility] [address] [facility] [id number] [address] [place] [address] Mar, Disorganized schizophrenia, 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 [facility] [address] [facility] [id number] [address] [place] [address] Mar, [facility] [address] [facility] [id number] [address] [place] [id number] Mar, [facility] [address] [facility] [id number] [address] [place] [address] Mar, [facility] [address] [facility] [id number] [address] [place] [address] Mar, [facility] [address] [facility] [id number] [address] [place] [address] February, Schizoaffective disorder, ch ronic 295.72 [facility] [address] [facility] [id number] [address] [place] [address] February, [facility] [address] [facility] [id number] [address] [place] [address] February, Attention 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 ; Posttraumatic stress disorder 309.81 and Schizoaffective disorder, chronic 295.72 [facility] [place] [address] [id number] [address] [place] [address], [place] [address] 29 Jan, 2015 [facility] [address] [id number] [address] [place] [address], [place] [address] 14 Jan, 2015 [facility] [place] [address] [id number] [address] [place] [address], [place] [address] Jan, [facility] [address] [id number] [address] [place] [address], [place] [address] Dec, [facility] [place] [address] [id number] [address] [place] [address], [place] [address] Dec, [facility] [address] [id number] [address] [place] [address], [place] [address] Dec, [facility] [address] [id number] [address] [place] [address], [place] [address] Dec, [facility] [address] [id number] [address] [place] [address], [place] [address] Dec, [facility] [address] [id number] [address] [place] [address], [place] [address] Dec, [facility] [address] [id number] [address] [place] [address], [place] [address] Dec, [facility] [address] [id number] [address] [place] [address], [place] [address] Dec, [facility] [place] [facility] [address] [id number] [address] [place] [address], [place] [address] Nov, [facility] [address] [id number] [address] [place] [address], [place] [address] Nov, [facility] [place] [facility] [address] [id number] [address] [place] [address], [place] [address] Nov, [facility] [place] [facility] [address] [id number] [address] [place] [address], [place] [address] Nov, [facility] [place] [facility] [address] [id number] [address] [place] [address], [place] [address] Nov, [facility] [address] [id number] [address] [place] [address], [place] [address] Nov, [facility] [address] [id number] [address] [place] [address], [place] [address] Nov, [facility] [address] [id number] [address] [place] [address], [place] [address] Nov, [facility] [address] [id number] [address] [place] [address], [place] [address] Nov, [facility] [address] [id number] [address] [place] [address], [place] [address] Nov, [facility] [address] [id number] [address] [place] [address], [place] [address] Oct, [facility] [address] [id number] [address] [place] [address], [place] [address] Oct, [facility] [address] [id number] [address] [place] [address], [place] [address] Oct, [facility] [address] [id number] [address] [place] [address], [place] [address] Oct, [facility] [address] [id number] [address] [place] [address], [place] [address] Oct, [facility] [address] [id number] [address] [place] [address], [place] [address] Oct, [facility] [address] [id number] [address] [place] [address], [place] [address] Oct, [facility] [address] [id number] [address] [place] [address], [place] [address] Sep, [facility] [address] [id number] [address] [place] [address], [place] [address] Sep, [facility] [address] [id number] [address] [place] [address], [place] [address] Sep, [facility] [place] [facility] [address] [id number] [address] [place] [address], [place] [address] 15 Sep, 2014 [facility] [place] [facility] [address] [id number] [address] [place] [address], [place] [address] Aug, [facility] [place] [facility] [address] [id number] [address] [place] [address], [place] [address] Aug, [facility] [place] [facility] [address] [id number] [address] [place] [address], [place] [address] Aug, [facility] [place] [facility] [address] [id number] [address] [place] [address], [place] [address] Aug, [facility] [place] [facility] [address] [id number] [address] [place] [address], [place] [address] Aug, [facility] [place] [facility] [address] [id number] [address] [place] [address], [place] [address] Aug, [facility] [place] [facility] [address] [id number] [address] [place] [address], [place] [address] Jul, [facility] [place] [facility] [address] [id number] [address] [place] [address], [place] [address] 29 Jul, 2014 [facility] [place] [facility] [address] [id number] [address] [place] [address], [place] [address] 24 Jul, 2014 [facility] [place] [facility] [address] [id number] [address] [place] [address], [place] [address] 24 Jul, 2014 [facility] [place] [facility] [address] [id number] [address] [place] [address], [place] [address] 15 Jul, 2014 [facility] [place] [facility] [address] [id number] [address] [place] [address], [place] [address] 15 Jul, 2014 [facility] [place] [facility] [address] [id number] [address] [place] [address], [place] [address] 27 Jun, 2014 [facility] [place] [facility] [address] [id number] [address] [place] [address], [place] [address] 27 Jun, 2014 [facility] [place] [facility] [address] [id number] [address] [place] [address], [place] [address] Jun, 2013 [facility] [place] [facility] [address] [id number] [facility] [place] [address] 26 Jun, 2013 [facility] [place] [facility] [address] [id number] [facility] [place] [address] Jun, 2013 [facility] [place] [facility] [address] [id number] [address] [place] [address], [place] [address] Jun, 2013 [facility] [address] [id number] [address] [place] [address], [place] [address] 16 Jun, 2013 [facility] [address] [id number] [address] [place] [address], [place] [address] 16 Jun, 2013 [facility] [place] [facility] [address] [id number] [address] [place] [address], [place] [address] Jun, 2013 [facility] [address] [id number] [address] [place] [address], [place] [address] Jun, 2013 [facility] [place] [facility] [address] [id number] [address] [place] [address], [place] [address] Jun, [facility] [place] [facility] [address] [id number] [address] [place] [address], [place] [address] May, [facility] [place] [facility] [address] [id number] [address] [place] [address], [place] [address] May, [facility] [place] [facility] [address] [id number] [address] [place] [address], [place] [address] May, [facility] [place] [facility] [address] [id number] [address] [place] [address], [place] [address] May, [facility] [place] [facility] [address] [id number] [address] [place] [address], [place] [address] May, [facility] [place] [facility] [address] [id number] [address] [place] [address], [place] [address] May, [facility] [place] [facility] [address] [id number] [address] [place] [address], [place] [address] May, [facility] [place] [facility] [address] [id number] [address] [place] [address], [place] [address] May, [facility] [address] [id number] [address] [place] [address], [place] [address] May, [facility] [address] [id number] [address] [place] [address], [place] [address] May, [facility] [address] [id number] [address] [place] [address], [place] [address] Apr, [facility] [place] [facility] [address] [id number] [address] [place] [address], [place] [address] Apr, [facility] [address] [id number] [address] [place] [address], [place] [address] Apr, [facility] [address] [id number] [address] [place] [address], [place] [address] Apr, [facility] [address] [id number] [address] [place] [address], [place] [address] Apr, [facility] [address] [id number] [address] [place] [address], [place] [address] Apr, [facility] [address] [id number] [address] [place] [address], [place] [address] Apr, [facility] [address] [id number] [address] [place] [address], [place] [address] Apr, [facility] [address] [id number] [address] [place] [address], [place] [address] Apr, [facility] [place] [address] [id number] [address] [place] [address], [place] [address] Apr, [facility] [address] [id number] [address] [place] [address], [place] [address] Mar, [facility] [address] [id number] [address] [place] [address], [place] [address] Mar, [facility] [address] [id number] [address] [place] [address], [place] [address] Mar, [facility] [address] [id number] [address] [place] [address], [place] [address] Mar, [facility] [place] [address] [id number] [address] [place] [address], [place] [address] Mar, [facility] [address] [id number] [address] [place] [address], [place] [address] Mar, [facility] [address] [id number] [address] [place] [address], [place] [address] Mar, [facility] [address] [id number] [address] [place] [address], [place] [address] Mar, [facility] [address] [id number] [address] [place] [address], [place] [address] Mar, [facility] [address] [id number] [address] [place] [address], [place] [address] Mar, [facility] [address] [id number] [address] [place] [address], [place] [address] Mar, [facility] [address] [id number] [address] [place] [address], [place] [address] Mar, [facility] [place] [address] [id number] [address] [place] [address], [place] [address] Mar, [facility] [address] [id number] [address] [place] [address], [place] [address] Mar, [facility] [place] [facility] [address] [id number] [address] [place] [address], [place] [address] Mar, [facility] [place] [address] [id number] [address] [place] [address], [place] [address] Mar, [facility] [place] [address] [id number] [address] [place] [address], [place] [address] Mar, [facility] [place] [address] [id number] [address] [place] [address], [place] [address] 09 Mar, 2014 [facility] [place] [facility] [address] [id number] [address] [place] [address], [place] [address] Mar, [facility] [address] [id number] [facility] [place] [address] Mar, [facility] [address] [id number] [address] [place] [address], [place] [address] February, [facility] [address] [id number] [address] [place] [address], [place] [address] February, [facility] [address] [id number] [address] [place] [address], [place] [address] February, [facility] [address] [id number] [address] [place] [address], [place] [address] February, [facility] [address] [id number] [address] [place] [address], [place] [address] February, [facility] [address] [id number] [address] [place] [address], [place] [address] February, [facility] [address] [id number] [address] [place] [address], [place] [address] February, [facility] [address] [id number] [address] [place] [address], [place] [address] February, [facility] [address] [id number] [address] [place] [address], [place] [address] February, [facility] [address] [id number] [address] [place] [address], [place] [address] February, [facility] [address] [id number] [address] [place] [address], [place] [address] February, [facility] [address] [id number] [address] [place] [address], [place] [address] February, [facility] [address] [id number] [address] [place] [address], [place] [address] February, [facility] [address] [id number] [address] [place] [address], [place] [address] February, [facility] [address] [id number] [address] [place] [address], [place] [address] February, [facility] [address] [id number] [address] [place] [address], [place] [address] February, [facility] [address] [id number] [address] [place] [address], [place] [address] February, [facility] [address] [id number] [address] [place] [address], [place] [address] February, [facility] [address] [id number] [address] [place] [address], [place] [address] February, [facility] [address] [id number] [address] [place] [address], [place] [address] February, [facility] [address] [id number] [address] [place] [address], [place] [address] February, [facility] [address] [id number] [address] [place] [address], [place] [address] Jan, [facility] [address] [id number] [address] [place] [address], [place] [address] Jan, [facility] [address] [id number] [address] [place] [address], [place] [address] Jan, [facility] [address] [id number] [address] [place] [address], [place] [address] Jan, [facility] [address] [id number] [address] [place] [address], [place] [address] Jan, [facility] [address] [id number] [address] [place] [address], [place] [address] Jan, [facility] [address] [id number] [address] [place] [address], [place] [address] Jan, [facility] [address] [id number] [address] [place] [address], [place] [address] Jan, [facility] [address] [id number] [address] [place] [address], [place] [address] Dec, [facility] [address] [id number] [facility] [place] [address] 20 Dec, 2013 [facility] [address] [id number] [facility] [place] [address] 20 Dec, 2013 [facility] [address] [id number] [facility] [place] [address] 19 Dec, 2013 [facility] [place] [facility] [address] [id number] [address] [place] [address], [place] [address] 19 Dec, 2013 [facility] [address] [id number] [address] [place] [address], [place] [address] 15 Dec, 2013 [facility] [place] [facility] [address] [id number] [address] [place] [address], [place] [address] 15 Dec, 2013 [facility] [address] [id number] [address] [place] [address], [place] [address] 11 Dec, 2013 [facility] [place] [facility] [address] [id number] [address] [place] [address], [place] [address] 10 Dec, 2013 [facility] [place] [facility] [address] [id number] [address] [place] [address], [place] [address] 10 Dec, 2013 [facility] [place] [facility] [address] [id number] [address] [place] [address], [place] [address] 18 Nov, 2013 [facility] [place] [facility] [address] [id number] [address] [place] [address], [place] [address] 17 Nov, 2013 [facility] [place] [facility] [address] [id number] [address] [place] [address], [place] [address] Nov, [facility] [place] [facility] [address] [id number] [address] [place] [address], [place] [address] 05 Nov, 2013 [facility] [place] [facility] [address] [id number] [address] [place] [address], [place] [address] 05 Nov, 2013 [facility] [place] [facility] [address] [id number] [address] [place] [address], [place] [address] Oct, [facility] [place] [facility] [address] [id number] [address] [place] [address] Oct, [facility] [address] [id number] [address] [place] [address], [place] [address] Oct, [facility] [address] [id number] [address] [place] [address], [place] [address] Sep, [facility] [address] [id number] [address] [place] [address], [place] [address] Sep, [facility] [address] [id number] [address] [place] [address], [place] [address] Sep, [facility] [address] [id number] [address] [place] [address], [place] [address] Sep, [facility] [address] [id number] [address] [place] [address], [place] [address] Aug, [facility] [address] [id number] [address] [place] [address], [place] [address] Aug, [facility] [address] [id number] [address] [place] [address], [place] [address] Jul, [facility] [address] [id number] [address] [place] [address], [place] [address] Jul, [facility] [address] [id number] [address] [place] [address], [place] [address] Jul, [facility] [address] [id number] [address] [place] [address], [place] [address] Jul, [facility] [address] [id number] [address] [place] [address], [place] [address] Jul, [facility] [address] [id number] [address] [place] [address], [place] [address] Jun, [facility] [address] [id number] [address] [place] [address], [place] [address] Jun, [facility] [address] [id number] [address] [place] [address], [place] [address] 19 Jun, 2013 [facility] [address] [id number] [address] [place] [address], [place] [address] 18 Jun, 2013 [facility] [address] [id number] [address] [place] [address], [place] [address] 16 Jun, 2013 [facility] [address] [id number] [address] [place] [address], [place] [address] 12 Jun, 2013 [facility] [address] [id number] [address] [place] [address], [place] [address] 11 Jun, 2013 [facility] [address] [id number] [address] [place] [address], [place] [address] 30 May, 2013 [facility] [address] [id number] [address] [place] [address], [place] [address] May, [facility] [address] [id number] [address] [place] [address], [place] [address] Apr, [facility] [address] [id number] [address] [place] [address], [place] [address] Apr, [facility] [address] [id number] [address] [place] [address], [place] [address] Apr, [facility] [address] [id number] [address] [place] [address], [place] [address] Mar, [facility] [address] [id number] [address] [place] [address], [place] [address] Mar, [facility] [address] [id number] [address] [place] [address], [place] [address] February, [facility] [address] [id number] [address] [place] [address], [place] [address] February, [facility] [address] [id number] [address] [place] [address], [place] [address] February, [facility] [address] [id number] [address] [place] [address], [place] [address] February, [facility] [address] [id number] [address] [place] [address], [place] [address] 19 Jan, 2013 [facility] [address] [id number] [address] [place] [address], [place] [address] 17 Jan, 2013 [facility] [address] [id number] [address] [place] [address], [place] [address] 16 Jan, 2013 [facility] [address] [id number] [address] [place] [address], [place] [address] 29 Dec, 2012 [facility] [address] [id number] [address] [place] [address], [place] [address] Dec, [facility] [address] [id number] [address] [place] [address], [place] [address] Dec, [facility] [address] [id number] [address] [place] [address], [place] [address] 08 Dec, 2012 [facility] [address] [id number] [address] [place] [address], [place] [address] Nov, [facility] [address] [id number] [address] [place] [address], [place] [address] Nov, [facility] [address] [id number] [address] [place] [address], [place] [address] Oct, [facility] [address] [id number] [address] [place] [address], [place] [address] Oct, [facility] [address] [id number] [address] [place] [address], [place] [address] Oct, [facility] [address] [id number] [address] [place] [address], [place] [address] Oct, [facility] [address] [id number] [address] [place] [address], [place] [address] Aug, [facility] [address] [id number] [address] [place] [address], [place] [address] Aug, [facility] [address] [id number] [address] [place] [address], [place] [address] 18 Jun, 2012 [facility] [address] [id number] [facility] [place] [address] May, [facility] [address] [id number] [address] [place] [address], [place] [address] May, [facility] [address] [id number] [address] [place] [address], [place] [address] Apr, [facility] [address] [id number] [address] [place] [address], [place] [address] Apr, [facility] [address] [id number] [address] [place] [address], [place] [address] Apr, [facility] [address] [id number] [address] [place] [address], [place] [address] Mar, [facility] [address] [id number] [address] [place] [address], [place] [address] Mar, [facility] [address] [id number] [address] [place] [address], [place] [address] Mar, [facility] [address] [id number] [address] [place] [address], [place] [address] Mar, [facility] [address] [id number] [address] [place] [address], [place] [address] Mar, [facility] [address] [id number] [address] [place] [address], [place] [address] February, [facility] [address] [id number] [address] [place] [address], [place] [address] February, [facility] [address] [id number] [address] [place] [address], [place] [address] February, [facility] [address] [id number] [address] [place] [address], [place] [address] February, [facility] [address] [id number] [address] [place] [address], [place] [address] February, [facility] [address] [id number] [address] [place] [address], [place] [address] February, [facility] [address] [id number] [address] [place] [address], [place] [address] February, [facility] [address] [id number] [address] [place] [address], [place] [address] Jan, [facility] [address] [id number] [address] [place] [address], [place] [address] Jan, [facility] [address] [id number] [address] [place] [address], [place] [address] 17 Jan, 2012 [facility] [address] [id number] [address] [place] [address], [place] [address] Jan, [facility] [address] [id number] [address] [place] [address], [place] [address] Jan, [facility] [address] [id number] [address] [place] [address], [place] [address] Jan, [facility] [address] [id number] [address] [place] [address], [place] [address] 30 Dec, 2011 [facility] [address] [id number] [address] [place] [address], [place] [address] 24 Dec, 2011 [facility] [address] [id number] [address] [place] [address], [place] [address] Dec, [facility] [address] [id number] [address] [place] [address], [place] [address] Dec, [facility] [address] [id number] [address] [place] [address], [place] [address] Dec, [facility] [address] [id number] [address] [place] [address], [place] [address] Nov, [facility] [address] [id number] [address] [place] [address], [place] [address] Nov, [facility] [address] [id number] [address] [place] [address], [place] [address] Nov, [facility] [address] [id number] [address] [place] [address], [place] [address] 14 Nov, 2011 [facility] [address] [id number] [address] [place] [address], [place] [address] 10 Nov, 2011 [facility] [address] [id number] [address] [place] [address], [place] [address] Nov, [facility] [address] [id number] [address] [place] [address], [place] [address] Oct, [facility] [address] [id number] [address] [place] [address], [place] [address] Oct, [facility] [address] [id number] [address] [place] [address], [place] [address] Oct, [facility] [address] [id number] [address] [place] [address], [place] [address] Oct, [facility] [address] [id number] [address] [place] [address], [place] [address] Oct, [facility] [address] [id number] [address] [place] [address], [place] [address] Sep, [facility] [address] [id number] [address] [place] [address], [place] [address] Sep, [facility] [address] [id number] [address] [place] [address], [place] [address] Sep, [facility] [address] [id number] [address] [place] [address], [place] [address] 14 Sep, 2011 [facility] [address] [id number] [address] [place] [address], [place] [address] 14 Sep, 2011 [facility] [address] [id number] [address] [place] [address], [place] [address] 13 Sep, 2011 [facility] [address] [id number] [address] [place] [address], [place] [address] 12 Sep, 2011 [facility] [address] [id number] [address] [place] [address], [place] [address] Sep, [facility] [address] [id number] [address] [place] [address], [place] [address] Sep, [facility] [address] [id number] [address] [place] [address], [place] [address] Aug, [facility] [address] [id number] [address] [place] [address], [place] [address] Aug, [facility] [address] [id number] [address] [place] [address], [place] [address] Aug, [facility] [address] [id number] [address] [place] [address], [place] [address] Aug, [facility] [address] [id number] [address] [place] [address], [place] [address] Aug, [facility] [address] [id number] [address] [place] [address], [place] [address] Aug, [facility] [address] [id number] [address] [place] [address], [place] [address] Aug, [facility] [address] [id number] [address] [place] [address], [place] [address] Aug, [facility] [address] [id number] [address] [place] [address], [place] [address] Aug, [facility] [address] [id number] [address] [place] [address], [place] [address] Aug, [facility] [address] [id number] [address] [place] [address], [place] [address] Aug, [facility] [address] [id number] [address] [place] [address], [place] [address] Aug, [facility] [address] [id number] [address] [place] [address], [place] [address] Jul, [facility] [address] [id number] [address] [place] [address], [place] [address] Jul, [facility] [address] [id number] [address] [place] [address] Jul, [facility] [address] [id number] [address] [place] [id number] Jul, [facility] [address] [id number] [address] [place] [address] Jul, [facility] [address] [id number] [address] [place] [id number] Jul, [facility] [address] [id number] [address] [place] [address] Jul, [facility] [address] [id number] [address] [place] [address] Jul, [facility] [address] [id number] [address] [place] [address] Jul, [facility] [address] [id number] [address] [place] [address] Jul, [facility] [address] [id number] [address] [place] [id number] Nov, [facility] [address] [id number] [address] [place] [address] Aug, [facility] [address] [id number] [address] [place] [address] Aug, [facility] [address] [id number] [address] [place] [address] Aug, [facility] [address] [id number] [address] [place] [phone] Aug, [facility] [address] [id number] [address] [place] [id number] Jul, IMMUNIZATIONS No Known Immunizations SOCIAL HISTORY Never Assessed REASON FOR VISIT [place]MR[place] PLAN OF CARE VITAL SIGNS MEDICATIONS [...] Suicide attempt by hanging 2015 Hospitalization History [facility] 01/30/2018-02/10/20 08 Hospitalization History [facility] 05/04/18-
--- OUTSIDE RECORDS SUMMARY | 2020-04-04 02:14 | XMS REPORT ---
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 Active 19657778 Problem Generalized anxiety disorder 300.02 A ctive 74103176 Problem Obsessive-compulsive disorders 300.3 Active 394181404 Problem Catatonic schizophrenia, 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 728097268 Problem Disorganized schizophrenia, 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 42600493 Problem Paranoid schizophrenia F20.0 Active 64948425 Problem Borderline personality disorder F60.3 Active 84240341 Problem Paranoid schizophrenia, unspecified condition 295.30 Active 86797826 Problem Schizoaffective disorder, depressive type F25.1 Active 62890898 Problem Bipolar disorder, unspecified 296.80 Active 57466336 Problem Schizoaffective disorder, unspecified F25.9 Active 02702534 Problem Attention deficit hyperactivity disorder (ADHD), inattentive type, 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 29627527 Problem Posttraumatic stress disorder F43.10 Active 80694358 Problem High risk medication use Z79.899 Activ e [id number] ALLERGIES No Information ENCOUNTERS Encounter Location Date Diagnosis [facility], [place] [address] [facility] [id number] [address] [place] [phone] Jan, [facility], [place] [address] [facility] [id number] [address] [place] [phone] Dec, Paranoid schizophrenia F20.0 ; Posttraumatic stress disorder F43.10 ; Attention deficit hyperactivity disorder (ADHD), inattentive type, 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 and Borderline personality disorder F60.3 [facility] [place] [address] [facility] [id number] [address] [place] [phone] Dec, Paranoid schizophrenia F20.0 ; Posttraumatic stress disorder F43.10 ; Attention deficit hyperactivity disorder (ADHD), inattentive type, 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 and Borderline personality disorder F60.3 [facility], [place] [address] [place] [id number] [address] [place] [phone] Oct, Paranoid schizophrenia F20.0 ; Posttraumatic stress disorder F43.10 ; Attention deficit hyperactivity disorder (ADHD), inattentive type, 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 and Borderline personality disorder F60.3 [facility], [place] [address] [place] [id number] [address] [place] [phone] Oct, Paranoid schizophrenia F20.0 ; Posttraumatic stress disorder F43.10 ; Attention deficit hyperactivity disorder (ADHD), inattentive type, 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 and Borderline personality disorder F60.3 [facility] [place] [address] [place] [id number] [address] [place] [phone] Aug, [facility], [place] [address] [place] [id number] [place] [phone] Aug, Paranoid schizophrenia F20.0 ; Posttraumatic stress disorder F43.10 ; Attention deficit hyperactivity disorder (ADHD), inattentive type, 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 and Borderline personality disorder F60.3 [facility] [address] [facility] [id number] [address] [place] [phone] Jul, Dry skin dermatitis L85.3 [facility], [place] [address] [facility] [id number] [address] [place] [phone] Jul, [facility] [place] [address] [facility] [id number] [address] [place] [phone] Jul, Paranoid schizophrenia F20.0 [facility], [place] [address] [facility] [id number] [address] [place] [phone] May, Paranoid schizophrenia F20.0 ; Posttraumatic stress disorder F43.10 ; Attention deficit hyperactivity disorder (ADHD), inattentive type, 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 and Borderline personality disorder F60.3 [facility] [place] [address] [facility] [id number] [address] [place] [phone] May, [facility], [place] [address] [id number] [address] [address] May, Paranoid schizophrenia F20.0 [facility], [place] [address] [id number] [address] [place] [address], [place] [address] May, Paranoid schizophrenia F20.0 ; Posttraumatic stress disorder F43.10 ; Attention deficit hyperactivity disorder (ADHD), inattentive type, 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 and Borderline personality disorder F60.3 [facility] [place] [address] [id number] [facility] [place] [address] Apr, [facility], [place] [address] [id number] [address] [place] [address], [place] [address] Apr, Paranoid schizophrenia F20.0 ; Posttraumatic stress disorder F43.10 ; Attention deficit hyperactivity disorder (ADHD), inattentive type, 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 and Borderline personality disorder F60.3 [facility] [place] [address] [id number] [address] [place] [phone] Apr, [facility] [place] [address] [id number] [address] [place] [phone] Apr, Schizoaffective disorder, de pressive type F25.1 and Borderline personality disorder F60.3 [facility] [place] [address] [id number] [address] [place] [phone] Apr, Paranoid schizophrenia F20.0 ; Posttraumatic stress disorder F43.10 ; Attention deficit hyperactivity disorder (ADHD), inattentive type, 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 and Borderline personality disorder F60.3 [facility], [place] [address] [id number] [address] [place] [phone] Apr, [facility] [place] [address] [id number] [address] [place] [phone] Apr, Paranoid schizophrenia F20.0 ; Posttraumatic stress disorder F43.10 ; Attention deficit hyperactivity disorder (ADHD), inattentive type, 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 and Borderline personality disorder F60.3 [facility] [place] [address] [id number] [address] [place] [phone] Apr, [facility], [place] [address] [id number] [address] [place] [phone] Mar, Paranoid schizophrenia F20.0 [facility], [place] [address] [id number] [address] [place] [phone] Mar, [facility] [place] [address] [id number] [address] [place] [phone] Mar, Paranoid schizophrenia F20.0 ; Posttraumatic stress disorder F43.10 ; Attention deficit hyperactivity disorder (ADHD), inattentive type, 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 and Borderline personality disorder F60.3 [facility] [place] [address] [id number] [address] [place] [phone] February, Paranoid schizophrenia F20.0 [facility], [place] [address] [id number] [address] [place] [phone] February, Paranoid schizophrenia F20.0 ; Posttraumatic stress disorder F43.10 ; Attention deficit hyperactivity disorder (ADHD), inattentive type, 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 and Borderline personality disorder F60.3 [facility] [place] [address] [id number] [address] [place] [phone] February, Paranoid schizophrenia F20.0 ; Posttraumatic stress disorder F43.10 ; Attention deficit hyperactivity disorder (ADHD), inattentive type, 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 and Borderline personality disorder F60.3 [facility] [place] [address] [id number] [address] [place] [phone] February, [facility], [place] [address] [id number] [address] [place] [phone] February, Paranoid schizophrenia F20.0 [facility], [place] [address] [id number] [address] [place] [phone] February, Paranoid schizophrenia F20.0 [facility], [place] [address] [id number] [address] [place] [phone] February, Paranoid schizophrenia F20.0 ; Posttraumatic stress disorder F43.10 ; Attention deficit hyperactivity disorder (ADHD), inattentive type, 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 and Borderline personality disorder F60.3 [facility] [place] [address] [id number] [address] [place] [phone] Jan, Paranoid schizophrenia F20.0 ; Posttraumatic stress disorder F43.10 ; Attention deficit hyperactivity disorder (ADHD), inattentive type, 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 and Borderline personality disorder F60.3 [facility], [place] [address] [id number] [address] [place] [phone] Jan, Paranoid schizophrenia F20.0 [facility], [place] [address] [id number] [address] [place] [phone] Jan, Paranoid schizophrenia F20.0 [facility], [place] [address] [facility] [id number] [address] [place] [phone] Jan, Paranoid schizophrenia F20.0 ; Posttraumatic stress disorder F43.10 ; Attention deficit hyperactivity disorder (ADHD), inattentive type, 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 and Borderline personality disorder F60.3 [facility], [place] [address] [id number] [address] [place] [phone] Dec, [facility], [place] [address] [id number] [address] [place] [phone] Nov, Paranoid schizophrenia F20.0 ; Posttraumatic stress disorder F43.10 ; Attention deficit hyperactivity disorder (ADHD), inattentive type, 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 and Borderline personality disorder F60.3 [facility], [place] [address] [id number] [address] [place] [phone] Nov, [facility], [place] [address] [id number] [address] [place] [phone] Oct, Paranoid schizophrenia F20.0 [facility], [place] [address] [facility] [id number] [address] [place] [phone] Oct, Paranoid schizophrenia F20.0 ; Posttraumatic stress disorder F43.10 ; Attention deficit hyperactivity disorder (ADHD), inattentive type, 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 ; Borderline personality disorder F60.3 and Other detention (current) drug therapy Z79.899 [facility], [place] [address] [id number] [address] [place] [phone] Oct, [facility] [place] [address] [facility] [id number] [address] [place] [phone] Oct, [facility], [place] [address] [id number] [address] [place] [phone] Sep, [facility] [place] [address] [id number] [address] [place] [phone] Sep, Paranoid schizophrenia F20.0 ; Posttraumatic stress disorder F43.10 ; Attention deficit hyperactivity disorder (ADHD), inattentive type, 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 and Borderline personality disorder F60.3 [facility] [place] [address] [facility] [id number] [address] [place] [phone] Sep, Paranoid schizophrenia F20.0 [facility], [place] [address] [id number] [address] [place] [phone] Aug, Paranoid schizophrenia F20.0 ; Posttraumatic stress disorder F43.10 ; Attention deficit hyperactivity disorder (ADHD), inattentive type, 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 and Borderline personality disorder F60.3 [facility] [place] [address] [facility] [id number] [address] [place] [phone] Aug, Paranoid schizophrenia F20.0 ; Posttraumatic stress disorder F43.10 ; Attention deficit hyperactivity disorder (ADHD), inattentive type, 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 and Borderline personality disorder F60.3 [facility] [place] [address] [id number] [address] [place] [phone] Aug, [facility], [place] [address] [facility] [id number] [address] [place] [phone] Jul, Paranoid schizophrenia F20.0 ; Posttraumatic stress disorder F43.10 ; Attention deficit hyperactivity disorder (ADHD), inattentive type, 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 and Borderline personality disorder F60.3 [facility] [place] [address] [id number] [address] [place] [phone] Jul, Paranoid schizophrenia F20.0 [facility], [place] [address] [id number] [address] [place] [phone] Jul, Paranoid schizophrenia F20.0 ; Posttraumatic stress disorder F43.10 ; Attention deficit hyperactivity disorder (ADHD), inattentive type, 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 and Borderline personality disorder F60.3 [facility] [place] [address] [id number] [address] [place] [phone] Jun, Paranoid schizophrenia F20.0 ; Posttraumatic stress disorder F43.10 ; Attention deficit hyperactivity disorder (ADHD), inattentive type, 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 and Borderline personality disorder F60.3 [facility] [place] [address] [id number] [address] [place] [phone] May, Other detention (current) dr ug therapy Z79.899 [facility], [place] [address] [id number] [address] [place] [phone] May, [facility], [place] [address] [id number] [address] [place] [phone] May, [facility], [place] [address] [facility] [id number] [address] [place] [phone] May, Attention deficit hyperactiv ity disorder (ADHD), inattentive type, mild F90.0 [facility], [place] [address] [facility] [id number] [address] [place] [phone] May, [facility], [place] [address] [id number] [address] [place] [phone] May, Attention deficit hyperactiv ity disorder (ADHD), inattentive type, mild F90.0 [facility], [place] [address] [id number] [address] [place] [phone] May, Paranoid schizophrenia F20.0 ; Posttraumatic stress disorder F43.10 ; Attention deficit hyperactivity disorder (ADHD), inattentive type, 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 and Other detention (current) drug therapy Z79.899 [facility] [place] [address] [id number] [address] [place] [phone] Apr, Paranoid schizophrenia F20.0 [facility], [place] [address] [id number] [address] [place] [phone] Apr, Paranoid schizophrenia F20.0 ; Posttraumatic stress disorder F43.10 and Attention deficit hyperactivity disorder (ADHD), inattentive type, 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 [facility], [place] [address] [id number] [address] [place] [phone] February, [facility], [place] [address] [id number] [address] [place] [phone] February, Paranoid schizophrenia F20.0 ; Posttraumatic stress disorder F43.10 and Attention deficit hyperactivity disorder (ADHD), inattentive type, 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 [facility] [place] [address] [id number] [address] [place] [phone] February, Paranoid schizophrenia F20.0 ; Posttraumatic stress disorder F43.10 and Attention deficit hyperactivity disorder (ADHD), inattentive type, 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 [facility] [place] [address] [id number] [address] [place] [phone] Jan, Paranoid schizophrenia F20.0 ; Posttraumatic stress disorder F43.10 and Attention deficit hyperactivity disorder (ADHD), inattentive type, 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 [facility] [address] [id number] [address] [place] [id number] Dec, Dental examination Z01.20 [facility] [address] [id number] [address] [place] [id number] Nov, Dental examination Z01.20 [facility] [address] [id number] [address] [place] [address] [id number] Nov, Dental examination Z01.20 [facility] [address] [id number] [address] [place] [address] [id number] Nov, Dental caries K02.9 [facility] [place] [address] [id number] [address] [place] [phone] Nov, High risk medication use Z79 .899 [facility] [place] [address] [id number] [address] [place] [phone] Nov, Paranoid schizophrenia F20.0 ; Posttraumatic stress disorder F43.10 ; Attention deficit hyperactivity disorder (ADHD), inattentive type, 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 and Borderline personality disorder in adult F60.3 [facility] [address] [id number] [address] [place] [address] [id number] Oct, Dental caries K02.9 [facility] [place] [address] [id number] [address] [place] [phone] Sep, Paranoid schizophrenia F20.0 ; Posttraumatic stress disorder F43.10 and Attention deficit hyperactivity disorder (ADHD), inattentive type, 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 [facility] [place] [address] [id number] [address] [place] [phone] Aug, Paranoid schizophrenia F20.0 ; Posttraumatic stress disorder F43.10 and Attention deficit hyperactivity disorder (ADHD), inattentive type, 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 [facility] [address] [id number] [address] [place] [phone] Aug, Strep throat J02.0 and Cough R05 [facility] [place] [address] [id number] [address] [place] [phone] Aug, [facility] [place] [address] [id number] [address] [place] [phone] 24 Jul, 2016 Paranoid schizophrenia F20.0 ; Posttraumatic stress disorder F43.10 and Attention deficit hyperactivity disorder (ADHD), inattentive type, 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 [facility] [place] [address] [id number] [address] [place] [phone] Jul, [facility] [place] [address] [id number] [address] [place] [phone] Jun, Paranoid schizophrenia F20.0 ; Posttraumatic stress disorder F43.10 and Attention deficit hyperactivity disorder (ADHD), inattentive type, 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 [facility] [address] [id number] [address] [place] [id number] Jun, Dental examination Z01.20 [facility] [place] [address] [id number] [address] [place] [phone] Jun, [facility] [place] [address] [id number] [address] [place] [phone] May, Paranoid schizophrenia F20.0 [facility] [place] [address] [id number] [address] [place] [phone] May, Paranoid schizophrenia F20.0 ; Posttraumatic stress disorder F43.10 and Attention deficit hyperactivity disorder (ADHD), inattentive type, 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 [facility] [place] [address] [id number] [address] [place] [phone] May, [facility] [place] [address] [id number] [address] [place] [phone] May, Paranoid schizophrenia F20.0 [facility] [place] [address] [id number] [address] [place] [phone] May, [facility] [place] [address] [id number] [address] [place] [phone] May, Paranoid schizophrenia F20.0 [facility] [place] [address] [id number] [address] [place] [phone] May, Schizoaffective disorder, un specified F25.9 [facility] [place] [address] [id number] [address] [place] [phone] May, Schizoaffective disorder, un specified F25.9 [facility] [place] [address] [id number] [address] [place] [phone] May, [facility] [place] [address] [id number] [address] [place] [phone] May, Paranoid schizophrenia F20.0 [facility] [place] [address] [id number] [address] [place] [phone] May, Paranoid schizophrenia F20.0 ; Posttraumatic stress disorder F43.10 and Attention deficit hyperactivity disorder (ADHD), inattentive type, 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 [facility] [address] [id number] [address] [place] [address], [place] [address] Mar, [facility] [address] [id number] [facility] [place] [address] Mar, Paranoid schizophrenia F20.0 ; Posttraumatic stress disorder F43.10 and Attention deficit hyperactivity disorder (ADHD), inattentive type, 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 [facility] [place] [address] [id number] [address] [place] [address], [place] [address] Mar, Paranoid schizophrenia F20.0 [facility] [place] [address] [id number] [address] [place] [address], [place] [address] Mar, Paranoid schizophrenia F20.0 ; Attention deficit hyperactivity disorder (ADHD), inattentive type, 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 and Posttraumatic stress disorder F43.10 [facility] [place] [address] [id number] [address] [place] [phone] Mar, [facility] [address] [id number] [address] [place] [address], [place] [address] Mar, Paranoid schizophrenia F20.0 ; Posttraumatic stress disorder F43.10 and Attention deficit hyperactivity disorder (ADHD), inattentive type, 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 [facility] [address] [id number] [address] [place] [address], [place] [id number] February, [facility] [address] [id number] [address] [place] [id number] February, [facility] [address] [id number] [address] [place] [address], [place] [id number] February, [facility] [address] [id number] [address] [place] [id number] February, [facility] [address] [id number] [address] [place] [address], [place] [id number] Jan, Paranoid schizophrenia F20.0 [facility] [address] [id number] [address] [place] [id number] Jan, Dental examination Z01.20 [facility] [address] [id number] [address] [place] [id number] Jan, Dental caries K02.9 [facility] [address] [id number] [address] [place] [id number] Jan, Dental examination Z01.20 [facility] [address] [id number] [address] [place] [id number] Dec, Encounter for dental examina tion Z01.20 [facility] [place] [address] [id number] [address] [place] [id number] Dec, Paranoid schizophrenia F20.0 [facility] [address] [id number] [address] [place] [id number] Dec, Dental examination Z01.20 [facility], [place] [address] [id number] [address] [place] [id number] Dec, [facility], [place] [address] [id number] [address] [place] [id number] Dec, Paranoid schizophrenia F20.0 ; Posttraumatic stress disorder F43.10 and Attention deficit hyperactivity disorder (ADHD), inattentive type, 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 [facility], [place] [address] [id number] [address] [place] [id number] Nov, Schizoaffective disorder, un specified F25.9 [facility] [place] [address] [id number] [address] [place] [id number] Oct, Paranoid schizophrenia F20.0 [facility], [place] [address] [id number] [address] [place] [address] Oct, [facility], [place] [address] [id number] [address] [place] [id number] Sep, Paranoid schizophrenia F20.0 ; Posttraumatic stress disorder F43.10 and Attention deficit hyperactivity disorder (ADHD), inattentive type, 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 [facility], [place] [address] [id number] [address] [place] [phone] Sep, [facility], [place] [address] [facility] [id number] [address] [place], [place] [id number] Sep, Paranoid schizophrenia F20.0 ; Posttraumatic stress disorder F43.10 and Attention deficit hyperactivity disorder (ADHD), inattentive type, 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 [facility], [place] [address] [facility] [id number] [address] [place] [address] Aug, Paranoid schizophrenia F20.0 [facility], [place] [address] [facility] [id number] [address] [place] [id number] Aug, [facility], [place] [address] [facility] [id number] [address] [place] [address] Aug, Posttraumatic stress disorde r F43.10 ; Paranoid schizophrenia F20.0 and Attention deficit hyperactivity disorder (ADHD), inattentive type, 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 [facility], [place] [address] [facility] [id number] [address] [place] [id number] Jul, Bipolar disorder, unspecifie d F31.9 [facility], [place] [address] [facility] [id number] [address] [place] [phone] Jul, [facility], [place] [address] [facility] [id number] [address] [place] [address] Jun, [facility], [place] [address] [facility] [id number] [address] [place] [address] Jun, Schizoaffective disorder, ch ronic 295.72 ; Posttraumatic stress disorder 309.81 and Attention deficit disorder of childhood without mention of hyperactivity 314.00 [facility], [place] [address] [facility] [id number] [address] [place] [phone] May, [facility], [place] [address] [facility] [id number] [address] [place] [phone] May, [facility], [place] [address] [facility] [id number] [address] [place] [address] May, Schizoaffective disorder, ch ronic 295.72 ; Posttraumatic stress disorder 309.81 ; Attention deficit disorder of childhood without mention of hyperactivity 314.00 and Bipolar disorder, unspecified 296.80 [facility], [place] [address] [facility] [id number] [address] [place] [address] Apr, Schizoaffective disorder, ch ronic 295.72 [facility], [place] [address] [facility] [id number] [address] [place] [address] Apr, [facility], [place] [address] [id number] [address] [place] [address] Apr, Schizoaffective disorder, ch ronic 295.72 ; Posttraumatic stress disorder 309.81 and Attention deficit disorder of childhood without mention of hyperactivity 314.00 [facility], [place] [address] [facility] [id number] [address] [place] [address] Mar, Disorganized schizophrenia, 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 [facility], [place] [address] [facility] [id number] [address] [place] [phone] Mar, [facility], [place] [address] [facility] [id number] [address] [place] [phone] Mar, [facility], [place] [address] [facility] [id number] [address] [place] [phone] Mar, [facility], [place] [address] [facility] [id number] [address] [place] [phone] Mar, [facility], [place] [address] [facility] [id number] [address] [place] [phone] February, Schizoaffective disorder, ch ronic 295.72 [facility] [place] [address] [facility] [id number] [address] [place] [phone] February, [facility], [place] [address] [facility] [id number] [address] [place] [address] February, Attention 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 ; Posttraumatic stress disorder 309.81 and Schizoaffective disorder, chronic 295.72 [facility] [place] [facility] [address] [id number] [address] [place] [address], [place] [address] 29 Jan, 2015 [facility] [address] [id number] [address] [place] [address], [place] [address] 14 Jan, 2015 [facility] [place] [facility] [address] [id number] [address] [place] [address], [place] [address] Jan, [facility] [address] [id number] [address] [place] [address], [place] [address] Dec, [facility] [place] [facility] [address] [id number] [address] [place] [address], [place] [address] Dec, [facility] [address] [id number] [address] [place] [address], [place] [address] Dec, [facility] [address] [id number] [address] [place] [address], [place] [address] Dec, [facility] [address] [id number] [address] [place] [address], [place] [address] Dec, [facility] [address] [id number] [address] [place] [address], [place] [address] Dec, [facility] [address] [id number] [address] [place] [address], [place] [address] Dec, [facility] [address] [id number] [address] [place] [address], [place] [address] Dec, [facility] [place] [facility] [address] [id number] [address] [place] [address], [place] [address] Nov, [facility] [address] [id number] [address] [place] [address], [place] [address] Nov, [facility] [place] [facility] [address] [id number] [address] [place] [address], [place] [address] Nov, [facility] [place] [facility] [address] [id number] [address] [place] [address], [place] [address] Nov, [facility] [place] [facility] [address] [id number] [address] [place] [address], [place] [address] Nov, [facility] [address] [id number] [address] [place] [address], [place] [address] Nov, [facility] [address] [id number] [address] [place] [address], [place] [address] Nov, [facility] [address] [id number] [address] [place] [address], [place] [address] Nov, [facility] [address] [id number] [address] [place] [address], [place] [address] Nov, [facility] [address] [id number] [address] [place] [address], [place] [address] Nov, [facility] [address] [id number] [address] [place] [address], [place] [address] Oct, [facility] [address] [id number] [address] [place] [address], [place] [address] Oct, [facility] [address] [id number] [address] [place] [address], [place] [address] Oct, [facility] [address] [id number] [address] [place] [address], [place] [address] Oct, [facility] [address] [id number] [address] [place] [address], [place] [address] Oct, [facility] [address] [id number] [address] [place] [address], [place] [address] Oct, [facility] [address] [id number] [address] [place] [address], [place] [address] Oct, [facility] [address] [id number] [address] [place] [address], [place] [address] Sep, [facility] [address] [id number] [address] [place] [address], [place] [address] Sep, [facility] [address] [id number] [address] [place] [address], [place] [address] Sep, [facility] [place] [facility] [address] [id number] [address] [place] [address], [place] [address] 15 Sep, 2014 [facility] [place] [facility] [address] [id number] [address] [place] [address], [place] [address] Aug, [facility] [place] [facility] [address] [id number] [address] [place] [address], [place] [address] Aug, [facility] [place] [facility] [address] [id number] [address] [place] [address], [place] [address] Aug, [facility] [place] [facility] [address] [id number] [address] [place] [address], [place] [address] Aug, [facility] [place] [facility] [address] [id number] [address] [place] [address], [place] [address] Aug, [facility] [place] [facility] [address] [id number] [address] [place] [address], [place] [address] Aug, [facility] [place] [facility] [address] [id number] [address] [place] [address], [place] [address] Jul, [facility] [place] [facility] [address] [id number] [address] [place] [address], [place] [address] 29 Jul, 2014 [facility] [place] [facility] [address] [id number] [address] [place] [address], [place] [address] 24 Jul, 2014 [facility] [place] [facility] [address] [id number] [address] [place] [address], [place] [address] 24 Jul, 2014 [facility] [place] [facility] [address] [id number] [address] [place] [address], [place] [address] 15 Jul, 2014 [facility] [place] [facility] [address] [id number] [address] [place] [address], [place] [address] 15 Jul, 2014 [facility] [place] [facility] [address] [id number] [address] [place] [address], [place] [address] 27 Jun, 2014 [facility] [place] [facility] [address] [id number] [address] [place] [address], [place] [address] 27 Jun, 2014 [facility] [place] [facility] [address] [id number] [address] [place] [address], [place] [address] Jun, 2013 [facility] [place] [facility] [address] [id number] [facility] [place] [address] 26 Jun, 2013 [facility] [place] [facility] [address] [id number] [facility] [place] [address] Jun, 2013 [facility] [place] [facility] [address] [id number] [address] [place] [address], [place] [address] Jun, 2013 [facility] [facility] [address] [id number] [address] [place] [address], [place] [address] 16 Jun, 2013 [facility] [address] [id number] [address] [place] [address], [place] [address] 16 Jun, 2013 [facility] [address] [id number] [address] [place] [address], [place] [address] Jun, 2013 [facility] [address] [id number] [address] [place] [address], [place] [address] Jun, 2013 [facility] [place] [facility] [address] [id number] [address] [place] [address], [place] [address] Jun, [facility] [facility] [address] [id number] [address] [place] [address], [place] [address] May, [facility] [facility] [address] [id number] [address] [place] [address], [place] [address] May, [facility] [address] [id number] [address] [place] [address], [place] [address] May, [facility] [address] [id number] [address] [place] [address], [place] [address] May, [facility] [address] [id number] [address] [place] [address], [place] [address] May, [facility] [address] [id number] [address] [place] [address], [place] [address] May, [facility] [address] [id number] [address] [place] [address], [place] [address] May, [facility] [address] [id number] [address] [place] [address], [place] [address] May, [facility] [address] [id number] [address] [place] [address], [place] [address] May, [facility] [address] [id number] [address] [place] [address], [place] [address] May, [facility] [address] [id number] [address] [place] [address], [place] [address] Apr, [facility] [address] [id number] [address] [place] [address], [place] [address] Apr, [facility] [address] [id number] [address] [place] [address], [place] [address] Apr, [facility] [address] [id number] [address] [place] [address], [place] [address] Apr, [facility] [address] [id number] [address] [place] [address], [place] [address] Apr, [facility] [address] [id number] [address] [place] [address], [place] [address] Apr, [facility] [address] [id number] [address] [place] [address], [place] [address] Apr, [facility] [address] [id number] [address] [place] [address], [place] [address] Apr, [facility] [address] [id number] [address] [place] [address], [place] [address] Apr, [facility] [address] [id number] [address] [place] [address], [place] [address] Apr, [facility] [address] [id number] [address] [place] [address], [place] [address] Mar, [facility] [address] [id number] [address] [place] [address], [place] [address] Mar, [facility] [address] [id number] [address] [place] [address], [place] [address] Mar, [facility] [address] [id number] [address] [place] [address], [place] [address] Mar, [facility] [address] [id number] [address] [place] [address], [place] [address] Mar, [facility] [address] [id number] [address] [place] [address], [place] [address] Mar, [facility] [address] [id number] [address] [place] [address], [place] [address] Mar, [facility] [address] [id number] [address] [place] [address], [place] [address] Mar, [facility] [address] [id number] [address] [place] [address], [place] [address] Mar, [facility] [address] [id number] [address] [place] [address], [place] [address] Mar, [facility] [address] [id number] [address] [place] [address], [place] [address] Mar, [facility] [address] [id number] [address] [place] [address], [place] [address] Mar, [facility] [address] [id number] [address] [place] [address], [place] [address] Mar, [facility] [address] [id number] [address] [place] [address], [place] [address] Mar, [facility] [address] [id number] [address] [place] [address], [place] [address] Mar, [facility] [address] [id number] [address] [place] [address], [place] [address] Mar, [facility] [address] [id number] [address] [place] [address], [place] [address] Mar, [facility] [address] [id number] [address] [place] [address], [place] [address] 09 Mar, 2014 [facility] [address] [id number] [address] [place] [address], [place] [address] Mar, [facility] [address] [id number] [facility] [place] [address] Mar, [facility] [address] [id number] [address] [place] [address], [place] [address] February, [facility] [address] [id number] [address] [place] [address], [place] [address] February, [facility] [address] [id number] [address] [place] [address], [place] [address] February, [facility] [address] [id number] [address] [place] [address], [place] [address] February, [facility] [address] [id number] [address] [place] [address], [place] [address] February, [facility] [address] [id number] [address] [place] [address], [place] [address] February, [facility] [address] [id number] [address] [place] [address], [place] [address] February, [facility] [address] [id number] [address] [place] [address], [place] [address] February, [facility] [address] [id number] [address] [place] [address], [place] [address] February, [facility] [address] [id number] [address] [place] [address], [place] [address] February, [facility] [address] [id number] [address] [place] [address], [place] [address] February, [facility] [address] [id number] [address] [place] [address], [place] [address] February, [facility] [address] [id number] [address] [place] [address], [place] [address] February, [facility] [address] [id number] [address] [place] [address], [place] [address] February, [facility] [address] [id number] [address] [place] [address], [place] [address] February, [facility] [address] [id number] [address] [place] [address], [place] [address] February, [facility] [address] [id number] [address] [place] [address], [place] [address] February, [facility] [address] [id number] [address] [place] [address], [place] [address] February, [facility] [address] [id number] [address] [place] [address], [place] [address] February, [facility] [address] [id number] [address] [place] [address], [place] [address] February, [facility] [address] [id number] [address] [place] [address], [place] [address] February, [facility] [address] [id number] [address] [place] [address], [place] [address] Jan, [facility] [address] [id number] [address] [place] [address], [place] [address] Jan, [facility] [address] [id number] [address] [place] [address], [place] [address] Jan, [facility] [address] [id number] [address] [place] [address], [place] [address] Jan, [facility] [address] [id number] [address] [place] [address], [place] [address] Jan, [facility] [address] [id number] [address] [place] [address], [place] [address] Jan, [facility] [address] [id number] [address] [place] [address], [place] [address] Jan, [facility] [address] [id number] [address] [place] [address], [place] [address] Jan, [facility] [address] [id number] [address] [place] [address], [place] [address] Dec, [facility] [address] [id number] [facility] [place] [address] 20 Dec, 2013 [facility] [address] [id number] [facility] [place] [address] 20 Dec, 2013 [facility] [address] [id number] [facility] [place] [address] 19 Dec, 2013 [facility] [address] [id number] [address] [place] [address], [place] [address] 19 Dec, 2013 [facility] [address] [id number] [address] [place] [address], [place] [address] 15 Dec, 2013 [facility] [place] [address] [id number] [address] [place] [address], [place] [address] 15 Dec, 2013 [facility] [address] [id number] [address] [place] [address], [place] [address] 11 Dec, 2013 [facility] [address] [id number] [address] [place] [address], [place] [address] 10 Dec, 2013 [facility] [address] [id number] [address] [place] [address], [place] [address] 10 Dec, 2013 [facility] [address] [id number] [address] [place] [address], [place] [address] 18 Nov, 2013 [facility] [address] [id number] [address] [place] [address], [place] [address] 17 Nov, 2013 [facility] [address] [id number] [address] [place] [address], [place] [address] Nov, [facility] [place] [address] [id number] [address] [place] [address], [place] [address] 05 Nov, 2013 [facility] [place] [address] [id number] [address] [place] [address], [place] [address] 05 Nov, 2013 [facility] [place] [address] [id number] [address] [place] [address], [place] [address] Oct, [facility] [place] [facility] [address] [id number] [address] [place] [address] Oct, [facility] [address] [id number] [address] [place] [address], [place] [address] Oct, [facility] [address] [id number] [address] [place] [address], [place] [address] Sep, [facility] [address] [id number] [address] [place] [address], [place] [address] Sep, [facility] [address] [id number] [address] [place] [address], [place] [address] Sep, [facility] [address] [id number] [address] [place] [address], [place] [address] Sep, [facility] [address] [id number] [address] [place] [address], [place] [address] Aug, [facility] [address] [id number] [address] [place] [address], [place] [address] Aug, [facility] [address] [id number] [address] [place] [address], [place] [address] Jul, [facility] [address] [id number] [address] [place] [address], [place] [address] Jul, [facility] [address] [id number] [address] [place] [address], [place] [address] Jul, [facility] [address] [id number] [address] [place] [address], [place] [address] Jul, [facility] [address] [id number] [address] [place] [address], [place] [address] Jul, [facility] [address] [id number] [address] [place] [address], [place] [address] Jun, [facility] [address] [id number] [address] [place] [address], [place] [address] Jun, [facility] [address] [id number] [address] [place] [address], [place] [address] 19 Jun, 2013 [facility] [address] [id number] [address] [place] [address], [place] [address] 18 Jun, 2013 [facility] [address] [id number] [address] [place] [address], [place] [address] 16 Jun, 2013 [facility] [address] [id number] [address] [place] [address], [place] [address] 12 Jun, 2013 [facility] [address] [id number] [address] [place] [address], [place] [address] 11 Jun, 2013 [facility] [address] [id number] [address] [place] [address], [place] [address] 30 May, 2013 [facility] [address] [address] [id number] [address] [place] [address], [place] [address] May, [facility] [address] [id number] [address] [place] [address], [place] [address] Apr, [facility] [address] [id number] [address] [place] [address], [place] [address] Apr, [facility] [address] [id number] [address] [place] [address], [place] [address] Apr, [facility] [address] [id number] [address] [place] [address], [place] [address] Mar, [facility] [address] [id number] [address] [place] [address], [place] [address] Mar, [facility] [address] [id number] [address] [place] [address], [place] [address] February, [facility] [address] [id number] [address] [place] [address], [place] [address] February, [facility] [address] [id number] [address] [place] [address], [place] [address] February, [facility] [address] [id number] [address] [place] [address], [place] [address] February, [facility] [address] [id number] [address] [place] [address], [place] [address] 19 Jan, 2013 [facility] [address] [id number] [address] [place] [address], [place] [address] 17 Jan, 2013 [facility] [address] [id number] [address] [place] [address], [place] [address] 16 Jan, 2013 [facility] [address] [id number] [address] [place] [address], [place] [address] 29 Dec, 2012 [facility] [address] [id number] [address] [place] [address], [place] [address] Dec, [facility] [address] [id number] [address] [place] [address], [place] [address] Dec, [facility] [address] [id number] [address] [place] [address], [place] [address] 08 Dec, 2012 [facility] [address] [id number] [address] [place] [address], [place] [address] Nov, [facility] [address] [id number] [address] [place] [address], [place] [address] Nov, [facility] [address] [id number] [address] [place] [address], [place] [address] Oct, [facility] [address] [id number] [address] [place] [address], [place] [address] Oct, [facility] [address] [id number] [address] [place] [address], [place] [address] Oct, [facility] [address] [id number] [address] [place] [address], [place] [address] Oct, [facility] [address] [id number] [address] [place] [address], [place] [address] Aug, [facility] [address] [id number] [address] [place] [address], [place] [address] Aug, [facility] [address] [id number] [address] [place] [address], [place] [address] 18 Jun, 2012 [facility] [address] [id number] [facility] [place] [address] May, [facility] [address] [id number] [address] [place] [address], [place] [address] May, [facility] [address] [id number] [address] [place] [address], [place] [address] Apr, [facility] [address] [id number] [address] [place] [address], [place] [address] Apr, [facility] [address] [id number] [address] [place] [address], [place] [address] Apr, [facility] [address] [id number] [address] [place] [address], [place] [address] Mar, [facility] [address] [id number] [address] [place] [address], [place] [address] Mar, [facility] [address] [id number] [address] [place] [address], [place] [address] Mar, [facility] [address] [id number] [address] [place] [address], [place] [address] Mar, [facility] [address] [id number] [address] [place] [address], [place] [address] Mar, [facility] [address] [id number] [address] [place] [address], [place] [address] February, [facility] [address] [id number] [address] [place] [address], [place] [address] February, [facility] [address] [id number] [address] [place] [address], [place] [address] February, [facility] [address] [id number] [address] [place] [address], [place] [address] February, [facility] [address] [id number] [address] [place] [address], [place] [address] February, [facility] [address] [id number] [address] [place] [address], [place] [address] February, [facility] [address] [id number] [address] [place] [address], [place] [address] February, [facility] [address] [id number] [address] [place] [address], [place] [address] Jan, [facility] [address] [id number] [address] [place] [address], [place] [address] Jan, [facility] [address] [id number] [address] [place] [address], [place] [address] 17 Jan, 2012 [facility] [address] [id number] [address] [place] [address], [place] [address] Jan, [facility] [address] [id number] [address] [place] [address], [place] [address] Jan, [facility] [address] [id number] [address] [place] [address], [place] [address] Jan, [facility] [address] [id number] [address] [place] [address], [place] [address] 30 Dec, 2011 [facility] [address] [id number] [address] [place] [address], [place] [address] 24 Dec, 2011 [facility] [address] [id number] [address] [place] [address], [place] [address] Dec, [facility] [address] [id number] [address] [place] [address], [place] [address] Dec, [facility] [address] [id number] [address] [place] [address], [place] [address] Dec, [facility] [address] [id number] [address] [place] [address], [place] [address] Nov, [facility] [address] [id number] [address] [place] [address], [place] [address] Nov, [facility] [address] [id number] [address] [place] [address], [place] [address] Nov, [facility] [address] [id number] [address] [place] [address], [place] [address] 14 Nov, 2011 [facility] [address] [id number] [address] [place] [address], [place] [address] 10 Nov, 2011 [facility] [address] [id number] [address] [place] [address], [place] [address] Nov, [facility] [address] [id number] [address] [place] [address], [place] [address] Oct, [facility] [address] [id number] [address] [place] [address], [place] [address] Oct, [facility] [address] [id number] [address] [place] [address], [place] [address] Oct, [facility] [address] [id number] [address] [place] [address], [place] [address] Oct, [facility] [address] [id number] [address] [place] [address], [place] [address] Oct, [facility] [address] [id number] [address] [place] [address], [place] [address] Sep, [facility] [address] [id number] [address] [place] [address], [place] [address] Sep, [facility] [address] [id number] [address] [place] [address], [place] [address] Sep, [facility] [address] [id number] [address] [place] [address], [place] [address] 14 Sep, 2011 [facility] [address] [id number] [address] [place] [address], [place] [address] 14 Sep, 2011 [facility] [address] [id number] [address] [place] [address], [place] [address] 13 Sep, 2011 [facility] [address] [id number] [address] [place] [address], [place] [address] 12 Sep, 2011 [facility] [address] [id number] [address] [place] [address], [place] [address] Sep, [facility] [address] [id number] [address] [place] [address], [place] [address] Sep, [facility] [address] [id number] [address] [place] [address], [place] [address] Aug, [facility] [address] [id number] [address] [place] [address], [place] [address] Aug, [facility] [address] [id number] [address] [place] [address], [place] [address] Aug, [facility] [address] [id number] [address] [place] [address], [place] [address] Aug, [facility] [address] [id number] [address] [place] [address], [place] [address] Aug, [facility] [address] [id number] [address] [place] [address], [place] [address] Aug, [facility] [address] [id number] [address] [place] [address], [place] [address] Aug, [facility] [address] [id number] [address] [place] [address], [place] [address] Aug, [facility] [address] [id number] [address] [place] [address], [place] [address] Aug, [facility] [address] [id number] [address] [place] [address], [place] [address] Aug, [facility] [address] [id number] [address] [place] [address], [place] [address] Aug, [facility] [address] [id number] [address] [place] [address], [place] [address] Aug, [facility] [address] [id number] [address] [place] [address], [place] [address] Jul, [facility] [address] [id number] [address] [place] [address], [place] [address] Jul, [facility] [address] [id number] [address] [place] [address] Jul, [facility] [place] [address] [id number] [address] [place] [address] Jul, [facility] [place] [address] [id number] [address] [place] [address] Jul, [facility] [place] [address] [id number] [address] [place] [address] Jul, [facility] [place] [address] [id number] [address] [place] [address] Jul, [facility] [place] [address] [id number] [address] [place] [address] Jul, [facility] [place] [address] [id number] [address] [place] [address] Jul, [facility] [place] [address] [id number] [address] [place] [address] Jul, [facility] [place] [address] [id number] [address] [place] [address] Nov, [facility] [place] [address] [id number] [address] [place] [address] Aug, [facility] [place] [address] [id number] [address] [place] [id number] Aug, [facility] [place] [address] [id number] [address] [place] [address] Aug, [facility] [place] [address] [id number] [address] [place] [id number] Aug, [facility] [place] [address] [id number] [address] [place] [id number] Jul, IMMUNIZATIONS No Known Immunizations SOCIAL HISTORY Never Assessed REASON FOR VISIT EMR-[facility] [place] PLAN OF CARE VITAL [...] [facility] 01/30/2018-02/10/20 08 Hospitalization History [facility]/SI 05/04/18-
--- OUTSIDE RECORDS SUMMARY | 2020-04-04 02:14 | XMS REPORT ---
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 Active 82387743 Problem Generalized anxiety disorder 300.02 A ctive 13993177 Problem Obsessive-compulsive disorders 300.3 Active 369571407 Problem Catatonic schizophrenia, 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 933504485 Problem Disorganized schizophrenia, 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 23874393 Problem Paranoid schizophrenia F20.0 Active 44214242 Problem Borderline personality disorder F60.3 Active 58089079 Problem Paranoid schizophrenia, unspecified condition 295.30 Active 04992091 Problem Schizoaffective disorder, depressive type F25.1 Active 18288418 Problem Bipolar disorder, unspecified 296.80 Active 86586768 Problem Schizoaffective disorder, unspecified F25.9 Active 42253179 Problem Attention deficit hyperactivity disorder (ADHD), inattentive type, 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 86296202 Problem Posttraumatic stress disorder F43.10 Active 72613390 Problem High risk medication use Z79.899 Activ e [id number] ALLERGIES No Information ENCOUNTERS Encounter Location Date Diagnosis [facility] [address] [facility] [id number] [address] [place] [phone] Jan, [facility] [address] [facility] [id number] [address] [place] [phone] Dec, Paranoid schizophrenia F20.0 ; Posttraumatic stress disorder F43.10 ; Attention deficit hyperactivity disorder (ADHD), inattentive type, 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 and Borderline personality disorder F60.3 [facility] [address] [facility] [id number] [address] [place] [phone] Dec, Paranoid schizophrenia F20.0 ; Posttraumatic stress disorder F43.10 ; Attention deficit hyperactivity disorder (ADHD), inattentive type, 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 and Borderline personality disorder F60.3 [facility] [address] [place] [id number] [address] [place] [phone] Oct, Paranoid schizophrenia F20.0 ; Posttraumatic stress disorder F43.10 ; Attention deficit hyperactivity disorder (ADHD), inattentive type, 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 and Borderline personality disorder F60.3 [facility] [address] [place] [id number] [address] [place] [phone] Oct, Paranoid schizophrenia F20.0 ; Posttraumatic stress disorder F43.10 ; Attention deficit hyperactivity disorder (ADHD), inattentive type, 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 and Borderline personality disorder F60.3 [facility] [address] [place] [id number] [address] [place] [phone] Aug, [facility] [address] [place] [id number] [place] [address] Aug, Paranoid schizophrenia F20.0 ; Posttraumatic stress disorder F43.10 ; Attention deficit hyperactivity disorder (ADHD), inattentive type, 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 and Borderline personality disorder F60.3 [facility] [address] [facility] [id number] [address] [place] [phone] Jul, Dry skin dermatitis L85.3 [facility] [address] [facility] [id number] [address] [place] [phone] Jul, [facility] [address] [facility] [id number] [address] [place] [id number] Jul, Paranoid schizophrenia F20.0 [facility] [address] [facility] [id number] [address] [place] [phone] May, Paranoid schizophrenia F20.0 ; Posttraumatic stress disorder F43.10 ; Attention deficit hyperactivity disorder (ADHD), inattentive type, 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 and Borderline personality disorder F60.3 [facility] [address] [facility] [id number] [address] [place] [phone] May, [facility] [address] [id number] [address] [address] May, Paranoid schizophrenia F20.0 [facility] [address] [id number] [address] [place] [address], [place] [address] May, Paranoid schizophrenia F20.0 ; Posttraumatic stress disorder F43.10 ; Attention deficit hyperactivity disorder (ADHD), inattentive type, 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 and Borderline personality disorder F60.3 [facility] [address] [id number] [facility] [place] [address] Apr, [facility] [address] [id number] [address] [place] [address], [place] [address] Apr, Paranoid schizophrenia F20.0 ; Posttraumatic stress disorder F43.10 ; Attention deficit hyperactivity disorder (ADHD), inattentive type, 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 and Borderline personality disorder F60.3 [facility] [address] [id number] [address] [place] [phone] Apr, [facility] [address] [id number] [address] [place] [phone] Apr, Schizoaffective disorder, de pressive type F25.1 and Borderline personality disorder F60.3 [facility] [address] [id number] [address] [place] [phone] Apr, Paranoid schizophrenia F20.0 ; Posttraumatic stress disorder F43.10 ; Attention deficit hyperactivity disorder (ADHD), inattentive type, 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 and Borderline personality disorder F60.3 [facility] [address] [id number] [address] [place] [phone] Apr, [facility] [address] [id number] [address] [place] [phone] Apr, Paranoid schizophrenia F20.0 ; Posttraumatic stress disorder F43.10 ; Attention deficit hyperactivity disorder (ADHD), inattentive type, 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 and Borderline personality disorder F60.3 [facility] [address] [id number] [address] [place] [id number] Apr, [facility] [address] [id number] [address] [place] [phone] Mar, Paranoid schizophrenia F20.0 [facility] [address] [id number] [address] [place] [phone] Mar, [facility] [address] [id number] [address] [place] [id number] Mar, Paranoid schizophrenia F20.0 ; Posttraumatic stress disorder F43.10 ; Attention deficit hyperactivity disorder (ADHD), inattentive type, 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 and Borderline personality disorder F60.3 [facility] [address] [id number] [address] [place] [phone] February, Paranoid schizophrenia F20.0 [facility] [address] [id number] [address] [place] [phone] February, Paranoid schizophrenia F20.0 ; Posttraumatic stress disorder F43.10 ; Attention deficit hyperactivity disorder (ADHD), inattentive type, 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 and Borderline personality disorder F60.3 [facility] [address] [id number] [address] [place] [phone] February, Paranoid schizophrenia F20.0 ; Posttraumatic stress disorder F43.10 ; Attention deficit hyperactivity disorder (ADHD), inattentive type, 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 and Borderline personality disorder F60.3 [facility] [address] [id number] [address] [place] [phone] February, [facility] [address] [id number] [address] [place] [phone] February, Paranoid schizophrenia F20.0 [facility] [address] [id number] [address] [place] [id number] February, Paranoid schizophrenia F20.0 [facility] [address] [id number] [address] [place] [phone] February, Paranoid schizophrenia F20.0 ; Posttraumatic stress disorder F43.10 ; Attention deficit hyperactivity disorder (ADHD), inattentive type, 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 and Borderline personality disorder F60.3 [facility] [address] [id number] [address] [place] [id number] Jan, Paranoid schizophrenia F20.0 ; Posttraumatic stress disorder F43.10 ; Attention deficit hyperactivity disorder (ADHD), inattentive type, 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 and Borderline personality disorder F60.3 [facility] [address] [id number] [address] [place] [id number] Jan, Paranoid schizophrenia F20.0 [facility] [address] [id number] [address] [place] [phone] Jan, Paranoid schizophrenia F20.0 [facility] [address] [facility] [id number] [address] [place] [id number] Jan, Paranoid schizophrenia F20.0 ; Posttraumatic stress disorder F43.10 ; Attention deficit hyperactivity disorder (ADHD), inattentive type, 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 and Borderline personality disorder F60.3 [facility] [address] [id number] [address] [place] [id number] Dec, [facility] [address] [id number] [address] [place] [phone] Nov, Paranoid schizophrenia F20.0 ; Posttraumatic stress disorder F43.10 ; Attention deficit hyperactivity disorder (ADHD), inattentive type, 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 and Borderline personality disorder F60.3 [facility] [address] [id number] [address] [place] [phone] Nov, [facility] [address] [id number] [address] [place] [phone] Oct, Paranoid schizophrenia F20.0 [facility] [address] [facility] [id number] [address] [place] [phone] Oct, Paranoid schizophrenia F20.0 ; Posttraumatic stress disorder F43.10 ; Attention deficit hyperactivity disorder (ADHD), inattentive type, 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 ; Borderline personality disorder F60.3 and Other skilled nursing (current) drug therapy Z79.899 [facility] [address] [id number] [address] [place] [phone] Oct, [facility] [address] [facility] [id number] [address] [place] [phone] Oct, [facility] [address] [id number] [address] [place] [phone] Sep, [facility] [address] [id number] [address] [place] [phone] Sep, Paranoid schizophrenia F20.0 ; Posttraumatic stress disorder F43.10 ; Attention deficit hyperactivity disorder (ADHD), inattentive type, 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 and Borderline personality disorder F60.3 [facility] [address] [facility] [id number] [address] [place] [id number] Sep, Paranoid schizophrenia F20.0 [facility] [address] [id number] [address] [place] [phone] Aug, Paranoid schizophrenia F20.0 ; Posttraumatic stress disorder F43.10 ; Attention deficit hyperactivity disorder (ADHD), inattentive type, 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 and Borderline personality disorder F60.3 [facility] [address] [facility] [id number] [address] [place] [id number] Aug, Paranoid schizophrenia F20.0 ; Posttraumatic stress disorder F43.10 ; Attention deficit hyperactivity disorder (ADHD), inattentive type, 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 and Borderline personality disorder F60.3 [facility] [address] [id number] [address] [place] [id number] Aug, [facility] [address] [facility] [id number] [address] [place] [phone] Jul, Paranoid schizophrenia F20.0 ; Posttraumatic stress disorder F43.10 ; Attention deficit hyperactivity disorder (ADHD), inattentive type, 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 and Borderline personality disorder F60.3 [facility] [address] [id number] [address] [place] [phone] Jul, Paranoid schizophrenia F20.0 [facility] [address] [id number] [address] [place] [id number] Jul, Paranoid schizophrenia F20.0 ; Posttraumatic stress disorder F43.10 ; Attention deficit hyperactivity disorder (ADHD), inattentive type, 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 and Borderline personality disorder F60.3 [facility] [address] [id number] [address] [place] [id number] Jun, Paranoid schizophrenia F20.0 ; Posttraumatic stress disorder F43.10 ; Attention deficit hyperactivity disorder (ADHD), inattentive type, 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 and Borderline personality disorder F60.3 [facility] [address] [id number] [address] [place] [id number] May, Other skilled nursing (current) dr ug therapy Z79.899 [facility] [address] [id number] [address] [place] [id number] May, [facility] [address] [id number] [address] [place] [id number] May, [facility] [address] [facility] [id number] [address] [place] [phone] May, Attention deficit hyperactiv ity disorder (ADHD), inattentive type, mild F90.0 [facility] [address] [facility] [id number] [address] [place] [phone] May, [facility] [address] [id number] [address] [place] [id number] May, Attention deficit hyperactiv ity disorder (ADHD), inattentive type, mild F90.0 [facility] [address] [id number] [address] [place] [phone] May, Paranoid schizophrenia F20.0 ; Posttraumatic stress disorder F43.10 ; Attention deficit hyperactivity disorder (ADHD), inattentive type, 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 and Other skilled nursing (current) drug therapy Z79.899 [facility] [address] [id number] [address] [place] [id number] Apr, Paranoid schizophrenia F20.0 [facility] [address] [id number] [address] [place] [id number] Apr, Paranoid schizophrenia F20.0 ; Posttraumatic stress disorder F43.10 and Attention deficit hyperactivity disorder (ADHD), inattentive type, 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 [facility] [address] [id number] [address] [place] [phone] February, [facility] [address] [id number] [address] [place] [id number] February, Paranoid schizophrenia F20.0 ; Posttraumatic stress disorder F43.10 and Attention deficit hyperactivity disorder (ADHD), inattentive type, 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 [facility] [address] [id number] [address] [place] [id number] February, Paranoid schizophrenia F20.0 ; Posttraumatic stress disorder F43.10 and Attention deficit hyperactivity disorder (ADHD), inattentive type, 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 [facility] [address] [id number] [address] [place] [id number] Jan, Paranoid schizophrenia F20.0 ; Posttraumatic stress disorder F43.10 and Attention deficit hyperactivity disorder (ADHD), inattentive type, 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 [facility] [address] [id number] [address] [place] [id number] Dec, Dental examination Z01.20 [facility] [address] [id number] [address] [place] [address] [id number] Nov, Dental examination Z01.20 [facility] [address] [id number] [address] [place] [address] [id number] Nov, Dental examination Z01.20 [facility] [address] [id number] [address] [place] [address] [id number] Nov, Dental caries K02.9 [facility] [address] [id number] [address] [place] [phone] Nov, High risk medication use Z79 .899 [facility] [address] [id number] [address] [place] [phone] Nov, Paranoid schizophrenia F20.0 ; Posttraumatic stress disorder F43.10 ; Attention deficit hyperactivity disorder (ADHD), inattentive type, 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 and Borderline personality disorder in adult F60.3 [facility] [address] [id number] [address] [place] [address] [id number] Oct, Dental caries K02.9 [facility] [address] [id number] [address] [place] [phone] Sep, Paranoid schizophrenia F20.0 ; Posttraumatic stress disorder F43.10 and Attention deficit hyperactivity disorder (ADHD), inattentive type, 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 [facility] [address] [id number] [address] [place] [id number] Aug, Paranoid schizophrenia F20.0 ; Posttraumatic stress disorder F43.10 and Attention deficit hyperactivity disorder (ADHD), inattentive type, 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 [facility] [address] [id number] [address] [place] [id number] Aug, Strep throat J02.0 and Cough R05 [facility] [address] [id number] [address] [place] [phone] Aug, [facility] [address] [id number] [address] [place] [phone] 24 Jul, 2016 Paranoid schizophrenia F20.0 ; Posttraumatic stress disorder F43.10 and Attention deficit hyperactivity disorder (ADHD), inattentive type, 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 [facility] [address] [id number] [address] [place] [phone] Jul, [facility] [address] [id number] [address] [place] [id number] Jun, Paranoid schizophrenia F20.0 ; Posttraumatic stress disorder F43.10 and Attention deficit hyperactivity disorder (ADHD), inattentive type, 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 [facility] [address] [id number] [address] [place] [address] [id number] Jun, Dental examination Z01.20 [facility] [address] [id number] [address] [place] [phone] Jun, [facility] [address] [id number] [address] [place] [phone] May, Paranoid schizophrenia F20.0 [facility] [address] [id number] [address] [place] [phone] May, Paranoid schizophrenia F20.0 ; Posttraumatic stress disorder F43.10 and Attention deficit hyperactivity disorder (ADHD), inattentive type, 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 [facility] [address] [id number] [address] [place] [phone] May, [facility] [address] [id number] [address] [place] [phone] May, Paranoid schizophrenia F20.0 [facility] [address] [id number] [address] [place] [phone] May, [facility] [address] [id number] [address] [place] [phone] May, Paranoid schizophrenia F20.0 [facility] [address] [id number] [address] [place] [id number] May, Schizoaffective disorder, un specified F25.9 [facility] [address] [id number] [address] [place] [phone] May, Schizoaffective disorder, un specified F25.9 [facility] [address] [id number] [address] [place] [phone] May, [facility] [address] [id number] [address] [place] [id number] May, Paranoid schizophrenia F20.0 [facility] [address] [id number] [address] [place] [phone] May, Paranoid schizophrenia F20.0 ; Posttraumatic stress disorder F43.10 and Attention deficit hyperactivity disorder (ADHD), inattentive type, 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 [facility] [address] [id number] [address] [place] [address], [place] [address] Mar, [facility] [address] [id number] [facility] [place] [address] Mar, Paranoid schizophrenia F20.0 ; Posttraumatic stress disorder F43.10 and Attention deficit hyperactivity disorder (ADHD), inattentive type, 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 [facility] [address] [id number] [address] [place] [address], [place] [address] Mar, Paranoid schizophrenia F20.0 [facility] [address] [id number] [address] [place] [address], [place] [address] Mar, Paranoid schizophrenia F20.0 ; Attention deficit hyperactivity disorder (ADHD), inattentive type, 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 and Posttraumatic stress disorder F43.10 [facility] [address] [id number] [address] [place] [id number] Mar, [facility] [address] [id number] [address] [place] [address], [place] [address] Mar, Paranoid schizophrenia F20.0 ; Posttraumatic stress disorder F43.10 and Attention deficit hyperactivity disorder (ADHD), inattentive type, 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 [facility] [address] [id number] [address] [place] [address], [place] [address] February, [facility] [address] [id number] [address] [place] [id number] February, [facility] [address] [id number] [address] [place] [address], [place] [address] February, [facility] [address] [id number] [address] [place] [phone] February, [facility] [address] [id number] [address] [place] [address], [place] [address] Jan, Paranoid schizophrenia F20.0 [facility] [address] [id number] [address] [place] [address] [id number] Jan, Dental examination Z01.20 [facility] [address] [id number] [address] [place] [address] [id number] Jan, Dental caries K02.9 [facility] [address] [id number] [address] [place] [address] [id number] Jan, Dental examination Z01.20 [facility] [address] [id number] [address] [place] [address] [id number] Dec, Encounter for dental examina tion Z01.20 [facility] [address] [id number] [address] [place] [id number] Dec, Paranoid schizophrenia F20.0 [facility] [address] [id number] [address] [place] [address] [id number] Dec, Dental examination Z01.20 [facility] [address] [id number] [address] [place] [phone] Dec, [facility] [address] [id number] [address] [place] [phone] Dec, Paranoid schizophrenia F20.0 ; Posttraumatic stress disorder F43.10 and Attention deficit hyperactivity disorder (ADHD), inattentive type, 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 [facility] [address] [id number] [address] [place] [phone] Nov, Schizoaffective disorder, un specified F25.9 [facility] [address] [id number] [address] [place] [phone] Oct, Paranoid schizophrenia F20.0 [facility] [address] [id number] [address] [place] [phone] Oct, [facility] [address] [id number] [address] [place] [phone] Sep, Paranoid schizophrenia F20.0 ; Posttraumatic stress disorder F43.10 and Attention deficit hyperactivity disorder (ADHD), inattentive type, 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 [facility] [address] [id number] [address] [place] [id number] Sep, [facility] [address] [facility] [id number] [address] [place], [place] [address] Sep, Paranoid schizophrenia F20.0 ; Posttraumatic stress disorder F43.10 and Attention deficit hyperactivity disorder (ADHD), inattentive type, 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 [facility] [address] [facility] [id number] [address] [place] [id number] Aug, Paranoid schizophrenia F20.0 [facility] [address] [facility] [id number] [address] [place] [id number] Aug, [facility] [address] [facility] [id number] [address] [place] [id number] Aug, Posttraumatic stress disorde r F43.10 ; Paranoid schizophrenia F20.0 and Attention deficit hyperactivity disorder (ADHD), inattentive type, 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 [facility] [address] [facility] [id number] [address] [place] [id number] Jul, Bipolar disorder, unspecifie d F31.9 [facility] [address] [facility] [id number] [address] [place] [id number] Jul, [facility] [address] [facility] [id number] [address] [place] [id number] Jun, [facility] [address] [facility] [id number] [address] [place] [id number] Jun, Schizoaffective disorder, ch ronic 295.72 ; Posttraumatic stress disorder 309.81 and Attention deficit disorder of childhood without mention of hyperactivity 314.00 [facility] [address] [facility] [id number] [address] [place] [id number] May, [facility] [address] [facility] [id number] [address] [place] [id number] May, [facility] [address] [facility] [id number] [address] [place] [id number] May, Schizoaffective disorder, ch ronic 295.72 ; Posttraumatic stress disorder 309.81 ; Attention deficit disorder of childhood without mention of hyperactivity 314.00 and Bipolar disorder, unspecified 296.80 [facility] [address] [facility] [id number] [address] [place] [id number] Apr, Schizoaffective disorder, ch ronic 295.72 [facility] [address] [facility] [id number] [address] [place] [id number] Apr, [facility] [address] [id number] [address] [place] [id number] Apr, Schizoaffective disorder, ch ronic 295.72 ; Posttraumatic stress disorder 309.81 and Attention deficit disorder of childhood without mention of hyperactivity 314.00 [facility] [address] [facility] [id number] [address] [place] [id number] Mar, Disorganized schizophrenia, 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 [facility] [address] [facility] [id number] [address] [place] [id number] Mar, [facility] [address] [facility] [id number] [address] [place] [id number] Mar, [facility] [address] [facility] [id number] [address] [place] [id number] Mar, [facility] [address] [facility] [id number] [address] [place] [id number] Mar, [facility] [address] [facility] [id number] [address] [place] [id number] February, Schizoaffective disorder, ch ronic 295.72 [facility] [address] [facility] [id number] [address] [place] [id number] February, [facility] [address] [facility] [id number] [address] [place] [id number] February, Attention 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 ; Posttraumatic stress disorder 309.81 and Schizoaffective disorder, chronic 295.72 [facility] [place] [address] [id number] [address] [place] [address], [place] [address] 29 Jan, 2015 [facility] [address] [id number] [address] [place] [address], [place] [address] 14 Jan, 2015 [facility] [place] [address] [id number] [address] [place] [address], [place] [address] Jan, [facility] [address] [id number] [address] [place] [address], [place] [address] Dec, [facility] [place] [address] [id number] [address] [place] [address], [place] [address] Dec, [facility] [address] [id number] [address] [place] [address], [place] [address] Dec, [facility] [address] [id number] [address] [place] [address], [place] [address] Dec, [facility] [address] [id number] [address] [place] [address], [place] [address] Dec, [facility] [address] [id number] [address] [place] [address], [place] [address] Dec, [facility] [address] [id number] [address] [place] [address], [place] [address] Dec, [facility] [address] [id number] [address] [place] [address], [place] [address] Dec, [facility] [place] [facility] [address] [id number] [address] [place] [address], [place] [address] Nov, [facility] [address] [id number] [address] [place] [address], [place] [address] Nov, [facility] [place] [facility] [address] [id number] [address] [place] [address], [place] [address] Nov, [facility] [place] [facility] [address] [id number] [address] [place] [address], [place] [address] Nov, [facility] [place] [facility] [address] [id number] [address] [place] [address], [place] [address] Nov, [facility] [address] [id number] [address] [place] [address], [place] [address] Nov, [facility] [address] [id number] [address] [place] [address], [place] [address] Nov, [facility] [address] [id number] [address] [place] [address], [place] [address] Nov, [facility] [address] [id number] [address] [place] [address], [place] [address] Nov, [facility] [address] [id number] [address] [place] [address], [place] [address] Nov, [facility] [address] [id number] [address] [place] [address], [place] [address] Oct, [facility] [address] [id number] [address] [place] [address], [place] [address] Oct, [facility] [address] [id number] [address] [place] [address], [place] [address] Oct, [facility] [address] [id number] [address] [place] [address], [place] [address] Oct, [facility] [address] [id number] [address] [place] [address], [place] [address] Oct, [facility] [address] [id number] [address] [place] [address], [place] [address] Oct, [facility] [address] [id number] [address] [place] [address], [place] [address] Oct, [facility] [address] [id number] [address] [place] [address], [place] [address] Sep, [facility] [address] [id number] [address] [place] [address], [place] [address] Sep, [facility] [address] [id number] [address] [place] [address], [place] [address] Sep, [facility] [place] [address] [id number] [address] [place] [address], [place] [address] 15 Sep, 2014 [facility] [place] [facility] [address] [id number] [address] [place] [address], [place] [address] Aug, [facility] [place] [facility] [address] [id number] [address] [place] [address], [place] [address] Aug, [facility] [place] [facility] [address] [id number] [address] [place] [address], [place] [address] Aug, [facility] [place] [facility] [address] [id number] [address] [place] [address], [place] [address] Aug, [facility] [place] [facility] [address] [id number] [address] [place] [address], [place] [address] Aug, [facility] [place] [facility] [address] [id number] [address] [place] [address], [place] [address] Aug, [facility] [place] [facility] [address] [id number] [address] [place] [address], [place] [address] Jul, [facility] [place] [facility] [address] [id number] [address] [place] [address], [place] [address] 29 Jul, 2014 [facility] [place] [facility] [address] [id number] [address] [place] [address], [place] [address] 24 Jul, 2014 [facility] [place] [facility] [address] [id number] [address] [place] [address], [place] [address] 24 Jul, 2014 [facility] [place] [facility] [address] [id number] [address] [place] [address], [place] [address] 15 Jul, 2014 [facility] [place] [address] [id number] [address] [place] [address], [place] [address] 15 Jul, 2014 [facility] [place] [facility] [address] [id number] [address] [place] [address], [place] [address] 27 Jun, 2014 [facility] [place] [facility] [address] [id number] [address] [place] [address], [place] [address] 27 Jun, 2014 [facility] [place] [address] [id number] [address] [place] [address], [place] [address] Jun, 2013 [facility] [place] [facility] [address] [id number] [facility] [place] [address] 26 Jun, 2013 [facility] [place] [address] [id number] [facility] [place] [address] Jun, 2013 [facility] [place] [address] [id number] [address] [place] [address], [place] [address] Jun, 2013 [facility] [place] [address] [id number] [address] [place] [address], [place] [address] 16 Jun, 2013 [facility] [address] [id number] [address] [place] [address], [place] [address] 16 Jun, 2013 [facility] [place] [address] [id number] [address] [place] [address], [place] [address] Jun, 2013 [facility] [address] [id number] [address] [place] [address], [place] [address] Jun, 2013 [facility] [place] [address] [id number] [address] [place] [address], [place] [address] Jun, [facility] [place] [address] [id number] [address] [place] [address], [place] [address] May, [facility] [place] [address] [id number] [address] [place] [address], [place] [address] May, [facility] [place] [facility] [address] [id number] [address] [place] [address], [place] [address] May, [facility] [place] [facility] [address] [id number] [address] [place] [address], [place] [address] May, [facility] [place] [address] [id number] [address] [place] [address], [place] [address] May, [facility] [place] [facility] [address] [id number] [address] [place] [address], [place] [address] May, [facility] [place] [facility] [address] [id number] [address] [place] [address], [place] [address] May, [facility] [place] [facility] [address] [id number] [address] [place] [address], [place] [address] May, [facility] [address] [id number] [address] [place] [address], [place] [address] May, [facility] [address] [id number] [address] [place] [address], [place] [address] May, [facility] [address] [id number] [address] [place] [address], [place] [address] Apr, [facility] [place] [facility] [address] [id number] [address] [place] [address], [place] [address] Apr, [facility] [address] [id number] [address] [place] [address], [place] [address] Apr, [facility] [address] [id number] [address] [place] [address], [place] [address] Apr, [facility] [address] [id number] [address] [place] [address], [place] [address] Apr, [facility] [address] [id number] [address] [place] [address], [place] [address] Apr, [facility] [address] [id number] [address] [place] [address], [place] [address] Apr, [facility] [address] [id number] [address] [place] [address], [place] [address] Apr, [facility] [address] [id number] [address] [place] [address], [place] [address] Apr, [facility] [address] [id number] [address] [place] [address], [place] [address] Apr, [facility] [address] [id number] [address] [place] [address], [place] [address] Mar, [facility] [address] [id number] [address] [place] [address], [place] [address] Mar, [facility] [address] [id number] [address] [place] [address], [place] [address] Mar, [facility] [place] [address] [id number] [address] [place] [address], [place] [address] Mar, [facility] [address] [id number] [address] [place] [address], [place] [address] Mar, [facility] [address] [id number] [address] [place] [address], [place] [address] Mar, [facility] [address] [id number] [address] [place] [address], [place] [address] Mar, [facility] [address] [id number] [address] [place] [address], [place] [address] Mar, [facility] [address] [id number] [address] [place] [address], [place] [address] Mar, [facility] [address] [id number] [address] [place] [address], [place] [address] Mar, [facility] [address] [id number] [address] [place] [address], [place] [address] Mar, [facility] [address] [id number] [address] [place] [address], [place] [address] Mar, [facility] [address] [id number] [address] [place] [address], [place] [address] Mar, [facility] [place] [facility] [address] [id number] [address] [place] [address], [place] [address] Mar, [facility] [place] [address] [id number] [address] [place] [address], [place] [address] Mar, [facility] [place] [address] [id number] [address] [place] [address], [place] [address] Mar, [facility] [address] [id number] [address] [place] [address], [place] [address] Mar, [facility] [address] [id number] [address] [place] [address], [place] [address] 09 Mar, 2014 [facility] [place] [facility] [address] [id number] [address] [place] [address], [place] [address] Mar, [facility] [address] [id number] [facility] [place] [address] Mar, [facility] [address] [id number] [address] [place] [address], [place] [address] February, [facility] [address] [id number] [address] [place] [address], [place] [address] February, [facility] [address] [id number] [address] [place] [address], [place] [address] February, [facility] [address] [id number] [address] [place] [address], [place] [address] February, [facility] [address] [id number] [address] [place] [address], [place] [address] February, [facility] [address] [id number] [address] [place] [address], [place] [address] February, [facility] [address] [id number] [address] [place] [address], [place] [address] February, [facility] [address] [id number] [address] [place] [address], [place] [address] February, [facility] [address] [id number] [address] [place] [address], [place] [address] February, [facility] [address] [id number] [address] [place] [address], [place] [address] February, [facility] [address] [id number] [address] [place] [address], [place] [address] February, [facility] [address] [id number] [address] [place] [address], [place] [address] February, [facility] [address] [id number] [address] [place] [address], [place] [address] February, [facility] [address] [id number] [address] [place] [address], [place] [address] February, [facility] [address] [id number] [address] [place] [address], [place] [address] February, [facility] [address] [id number] [address] [place] [address], [place] [address] February, [facility] [address] [id number] [address] [place] [address], [place] [address] February, [facility] [address] [id number] [address] [place] [address], [place] [address] February, [facility] [address] [id number] [address] [place] [address], [place] [address] February, [facility] [address] [id number] [address] [place] [address], [place] [address] February, [facility] [address] [id number] [address] [place] [address], [place] [address] February, [facility] [address] [id number] [address] [place] [address], [place] [address] Jan, [facility] [address] [id number] [address] [place] [address], [place] [address] Jan, [facility] [address] [id number] [address] [place] [address], [place] [address] Jan, [facility] [address] [id number] [address] [place] [address], [place] [address] Jan, [facility] [address] [id number] [address] [place] [address], [place] [address] Jan, [facility] [address] [id number] [address] [place] [address], [place] [address] Jan, [facility] [address] [id number] [address] [place] [address], [place] [address] Jan, [facility] [address] [id number] [address] [place] [address], [place] [address] Jan, [facility] [address] [id number] [address] [place] [address], [place] [address] Dec, [facility] [address] [id number] [facility] [place] [address] 20 Dec, 2013 [facility] [address] [id number] [facility] [place] [address] 20 Dec, 2013 [facility] [address] [id number] [facility] [place] [address] 19 Dec, 2013 [facility] [place] [facility] [address] [id number] [address] [place] [address], [place] [address] 19 Dec, 2013 [facility] [address] [id number] [address] [place] [address], [place] [address] 15 Dec, 2013 [facility] [place] [address] [id number] [address] [place] [address], [place] [address] 15 Dec, 2013 [facility] [address] [id number] [address] [place] [address], [place] [address] 11 Dec, 2013 [facility] [place] [facility] [address] [id number] [address] [place] [address], [place] [address] 10 Dec, 2013 [facility] [place] [facility] [address] [id number] [address] [place] [address], [place] [address] 10 Dec, 2013 [facility] [place] [address] [id number] [address] [place] [address], [place] [address] 18 Nov, 2013 [facility] [place] [facility] [address] [id number] [address] [place] [address], [place] [address] 17 Nov, 2013 [facility] [place] [facility] [address] [id number] [address] [place] [address], [place] [address] Nov, [facility] [place] [facility] [address] [id number] [address] [place] [address], [place] [address] 05 Nov, 2013 [facility] [place] [facility] [address] [id number] [address] [place] [address], [place] [id number] 05 Nov, 2013 [facility] [place] [facility] [address] [id number] [address] [place] [address], [place] [id number] Oct, [facility] [place] [facility] [address] [id number] [address] [place] [address] Oct, [facility] [address] [id number] [address] [place] [address], [place] [address] Oct, [facility] [address] [id number] [address] [place] [address], [place] [address] Sep, [facility] [address] [id number] [address] [place] [address], [place] [address] Sep, [facility] [address] [id number] [address] [place] [address], [place] [id number] Sep, [facility] [address] [id number] [address] [place] [address], [place] [address] Sep, [facility] [address] [id number] [address] [place] [address], [place] [address] Aug, [facility] [address] [id number] [address] [place] [address], [place] [address] Aug, [facility] [address] [id number] [address] [place] [address], [place] [id number] Jul, [facility] [address] [id number] [address] [place] [address], [place] [address] Jul, [facility] [address] [id number] [address] [place] [address], [place] [address] Jul, [facility] [address] [id number] [address] [place] [address], [place] [address] Jul, [facility] [address] [id number] [address] [place] [address], [place] [id number] Jul, [facility] [address] [id number] [address] [place] [address], [place] [address] Jun, [facility] [address] [id number] [address] [place] [address], [place] [address] Jun, [facility] [address] [id number] [address] [place] [address], [place] [id number] 19 Jun, 2013 [facility] [place] [facility] [address] [id number] [address] [place] [address], [place] [id number] 18 Jun, 2013 [facility] [address] [id number] [address] [place] [address], [place] [id number] 16 Jun, 2013 [facility] [address] [id number] [address] [place] [address], [place] [id number] 12 Jun, 2013 [facility] [address] [id number] [address] [place] [address], [place] [address] 11 Jun, 2013 [facility] [address] [id number] [address] [place] [address], [place] [id number] 30 May, 2013 [facility] [address] [id number] [address] [place] [address], [place] [address] May, [facility] [address] [id number] [address] [place] [address], [place] [address] Apr, [facility] [address] [id number] [address] [place] [address], [place] [address] Apr, [facility] [address] [id number] [address] [place] [address], [place] [address] Apr, [facility] [address] [id number] [address] [place] [address], [place] [address] Mar, [facility] [address] [id number] [address] [place] [address], [place] [address] Mar, [facility] [address] [id number] [address] [place] [address], [place] [id number] February, [facility] [address] [id number] [address] [place] [address], [place] [address] February, [facility] [address] [id number] [address] [place] [address], [place] [address] February, [facility] [address] [id number] [address] [place] [address], [place] [address] February, [facility] [address] [id number] [address] [place] [address], [place] [id number] 19 Jan, 2013 [facility] [address] [id number] [address] [place] [address], [place] [id number] 17 Jan, 2013 [facility] [address] [id number] [address] [place] [address], [place] [id number] 16 Jan, 2013 [facility] [address] [id number] [address] [place] [address], [place] [id number] 29 Dec, 2012 [facility] [address] [id number] [address] [place] [address], [place] [address] Dec, [facility] [address] [id number] [address] [place] [address], [place] [address] Dec, [facility] [address] [id number] [address] [place] [address], [place] [id number] 08 Dec, 2012 [facility] [address] [id number] [address] [place] [address], [place] [address] Nov, [facility] [address] [id number] [address] [place] [address], [place] [id number] Nov, [facility] [address] [id number] [address] [place] [address], [place] [address] Oct, [facility] [address] [id number] [address] [place] [address], [place] [address] Oct, [facility] [address] [id number] [address] [place] [address], [place] [address] Oct, [facility] [address] [id number] [address] [place] [address], [place] [address] Oct, [facility] [address] [id number] [address] [place] [address], [place] [address] Aug, [facility] [address] [id number] [address] [place] [address], [place] [address] Aug, [facility] [address] [id number] [address] [place] [address], [place] [id number] 18 Jun, 2012 [facility] [address] [id number] [facility] [place] [address] May, [facility] [address] [id number] [address] [place] [address], [place] [address] May, [facility] [address] [id number] [address] [place] [address], [place] [address] Apr, [facility] [address] [id number] [address] [place] [address], [place] [address] Apr, [facility] [address] [id number] [address] [place] [address], [place] [address] Apr, [facility] [address] [id number] [address] [place] [address], [place] [address] Mar, [facility] [address] [id number] [address] [place] [address], [place] [address] Mar, [facility] [address] [id number] [address] [place] [address], [place] [address] Mar, [facility] [address] [id number] [address] [place] [address], [place] [address] Mar, [facility] [address] [id number] [address] [place] [address], [place] [address] Mar, [facility] [address] [id number] [address] [place] [address], [place] [address] February, [facility] [address] [id number] [address] [place] [address], [place] [address] February, [facility] [address] [id number] [address] [place] [address], [place] [address] February, [facility] [address] [id number] [address] [place] [address], [place] [address] February, [facility] [address] [id number] [address] [place] [address], [place] [address] February, [facility] [address] [id number] [address] [place] [address], [place] [address] February, [facility] [address] [id number] [address] [place] [address], [place] [address] February, [facility] [address] [id number] [address] [place] [address], [place] [address] Jan, [facility] [address] [id number] [address] [place] [address], [place] [address] Jan, [facility] [address] [id number] [address] [place] [address], [place] [address] 17 Jan, 2012 [facility] [address] [id number] [address] [place] [address], [place] [address] Jan, [facility] [address] [id number] [address] [place] [address], [place] [address] Jan, [facility] [address] [id number] [address] [place] [address], [place] [address] Jan, [facility] [address] [id number] [address] [place] [address], [place] [address] 30 Dec, 2011 [facility] [address] [id number] [address] [place] [address], [place] [address] 24 Dec, 2011 [facility] [address] [id number] [address] [place] [address], [place] [address] Dec, [facility] [address] [id number] [address] [place] [address], [place] [address] Dec, [facility] [address] [id number] [address] [place] [address], [place] [address] Dec, [facility] [address] [id number] [address] [place] [address], [place] [address] Nov, [facility] [address] [id number] [address] [place] [address], [place] [address] Nov, [facility] [address] [id number] [address] [place] [address], [place] [address] Nov, [facility] [address] [id number] [address] [place] [address], [place] [address] 14 Nov, 2011 [facility] [address] [id number] [address] [place] [address], [place] [address] 10 Nov, 2011 [facility] [address] [id number] [address] [place] [address], [place] [address] Nov, [facility] [address] [id number] [address] [place] [address], [place] [address] Oct, [facility] [address] [id number] [address] [place] [address], [place] [address] Oct, [facility] [address] [id number] [address] [place] [address], [place] [address] Oct, [facility] [address] [id number] [address] [place] [address], [place] [address] Oct, [facility] [address] [id number] [address] [place] [address], [place] [address] Oct, [facility] [address] [id number] [address] [place] [address], [place] [address] Sep, [facility] [address] [id number] [address] [place] [address], [place] [address] Sep, [facility] [address] [id number] [address] [place] [address], [place] [address] Sep, [facility] [address] [id number] [address] [place] [address], [place] [address] 14 Sep, 2011 [facility] [address] [id number] [address] [place] [address], [place] [address] 14 Sep, 2011 [facility] [address] [id number] [address] [place] [address], [place] [address] 13 Sep, 2011 [facility] [address] [id number] [address] [place] [address], [place] [address] 12 Sep, 2011 [facility] [address] [id number] [address] [place] [address], [place] [address] Sep, [facility] [address] [id number] [address] [place] [address], [place] [address] Sep, [facility] [address] [id number] [address] [place] [address], [place] [address] Aug, [facility] [address] [id number] [address] [place] [address], [place] [address] Aug, [facility] [address] [id number] [address] [place] [address], [place] [address] Aug, [facility] [address] [id number] [address] [place] [address], [place] [address] Aug, [facility] [address] [id number] [address] [place] [address], [place] [address] Aug, [facility] [address] [id number] [address] [place] [address], [place] [address] Aug, [facility] [address] [id number] [address] [place] [address], [place] [address] Aug, [facility] [address] [id number] [address] [place] [address], [place] [address] Aug, [facility] [address] [id number] [address] [place] [address], [place] [address] Aug, [facility] [address] [id number] [address] [place] [address], [place] [address] Aug, [facility] [address] [id number] [address] [place] [address], [place] [address] Aug, [facility] [address] [id number] [address] [place] [address], [place] [address] Aug, [facility] [address] [id number] [address] [place] [address], [place] [address] Jul, [facility] [address] [id number] [address] [place] [address], [place] [address] Jul, [facility] [address] [id number] [address] [place] [id number] Jul, [facility] [address] [id number] [address] [place] [id number] Jul, [facility] [address] [id number] [address] [place] [id number] Jul, [facility] [address] [id number] [address] [place] [id number] Jul, [facility] [address] [id number] [address] [place] [id number] Jul, [facility] [address] [id number] [address] [place] [id number] Jul, [facility] [address] [id number] [address] [place] [id number] Jul, [facility] [address] [id number] [address] [place] [id number] Jul, [facility] [address] [id number] [address] [place] [id number] Nov, [facility] [address] [id number] [address] [place] [id number] Aug, [facility] [address] [id number] [address] [place] [id number] Aug, [facility] [address] [id number] [address] [place] [id number] Aug, [facility] [address] [id number] [address] [place] [id number] Aug, [facility] [address] [id number] [address] [place] [id number] Jul, IMMUNIZATIONS No Known Immunizations SOCIAL HISTORY Never Assessed REASON FOR VISIT EMR-[facility] [place]AN OF CARE VITAL SIGNS MEDICATIONS Unknown [...]
[2020-04-04 02:15] VITALS: BP 128/85
--- NOTE | 2020-04-04 02:15 | NUR ---
ROSEMARY CUNNINGHAM admitted to room 413-1, with an admitting diagnosis of uncontrolled IDDM,hallucinations,suicial ideations, on 04/04/20 from ER via , accompanied by certified medical technician. ROSEMARY CUNNINGHAM introduced to surroundings, call light, bed controls, TV, temperature control, lights, meal times, smoking policy, visitor policy, side rail policy, bathrooms and showers. Patient Rights given to patient in the handbook. ROSEMARY CUNNINGHAM verbalizes understanding that [facility] is not responsible for the loss or damage to any personal effects or valuables that are kept in the patients posession during their hospitalization. pt states she is not a danger to herself or anyone else at this time.
--- OUTSIDE RECORDS SUMMARY | 2020-04-04 02:15 | XMS REPORT ---
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 Active 25732907 Problem Generalized anxiety disorder 300.02 A ctive 43739195 Problem Obsessive-compulsive disorders 300.3 Active 007861660 Problem Catatonic schizophrenia, 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 768224165 Problem Disorganized schizophrenia, 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 28763126 Problem Paranoid schizophrenia F20.0 Active 90022748 Problem Borderline personality disorder F60.3 Active 48632755 Problem Paranoid schizophrenia, unspecified condition 295.30 Active 81088019 Problem Schizoaffective disorder, depressive type F25.1 Active 71082845 Problem Bipolar disorder, unspecified 296.80 Active 67214015 Problem Schizoaffective disorder, unspecified F25.9 Active 87113429 Problem Attention deficit hyperactivity disorder (ADHD), inattentive type, 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 [id number] [address] [place] [phone] Jan, [facility] [place] [address] 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 and Borderline personality disorder F60.3 [facility] [place] [address] [place] [id number] [address] [place] [phone] Oct, Paranoid schizophrenia F20.0 ; Posttraumatic stress disorder F43.10 ; Attention deficit hyperactivity disorder (ADHD), inattentive type, 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 and Borderline personality disorder F60.3 [facility] [place] [address] [place] [id number] [address] [place] [phone] Aug, [facility] [place] [address] [place] [id number] [place] [address] Aug, Paranoid schizophrenia F20.0 ; Posttraumatic stress disorder F43.10 ; Attention deficit hyperactivity disorder (ADHD), inattentive type, 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 [id number] [address] [place] [phone] Jul, Dry skin dermatitis L85.3 [facility] [place] [address] [facility] [id number] [address] [place] [phone] Jul, [facility] [place] [address] [facility] [id number] [address] [place] [phone] Jul, Paranoid schizophrenia F20.0 [facility] [place] [address] 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 and Borderline personality disorder F60.3 [facility] [place] [address] [id number] [facility] [place] [address] Apr, [facility] [place] [address] [id number] [address] [place] [address], [place] [address] Apr, Paranoid schizophrenia F20.0 ; Posttraumatic stress disorder F43.10 ; Attention deficit hyperactivity disorder (ADHD), inattentive type, 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 and Borderline personality disorder F60.3 [facility] [place] [address] [id number] [address] [place] [phone] Apr, [facility] [place] [address] [id number] [address] [place] [phone] Apr, Schizoaffective disorder, de pressive type F25.1 and Borderline personality disorder F60.3 [facility] [place] [address] [id number] [address] [place] [address] Apr, Paranoid schizophrenia F20.0 ; Posttraumatic stress disorder F43.10 ; Attention deficit hyperactivity disorder (ADHD), inattentive type, 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 and Borderline personality disorder F60.3 [facility] [place] [address] [id number] [address] [place] [address] Apr, [facility] [place] [address] [id number] [address] [place] [address] Apr, Paranoid schizophrenia F20.0 ; Posttraumatic stress disorder F43.10 ; Attention deficit hyperactivity disorder (ADHD), inattentive type, 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 and Borderline personality disorder F60.3 [facility] [place] [address] [id number] [address] [place] [address] Apr, [facility] [place] [address] [id number] [address] [place] [address] Mar, Paranoid schizophrenia F20.0 [facility] [place] [address] [id number] [address] [place] [phone] Mar, [facility] [place] [address] [id number] [address] [place] [phone] Mar, Paranoid schizophrenia F20.0 ; Posttraumatic stress disorder F43.10 ; Attention deficit hyperactivity disorder (ADHD), inattentive type, 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 and Borderline personality disorder F60.3 [facility] [place] [address] [id number] [address] [place] [phone] February, Paranoid schizophrenia F20.0 [facility] [place] [address] [id number] [address] [place] [phone] February, Paranoid schizophrenia F20.0 ; Posttraumatic stress disorder F43.10 ; Attention deficit hyperactivity disorder (ADHD), inattentive type, 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 and Borderline personality disorder F60.3 [facility] [place] [address] [id number] [address] [place] [address] February, Paranoid schizophrenia F20.0 ; Posttraumatic stress disorder F43.10 ; Attention deficit hyperactivity disorder (ADHD), inattentive type, 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 and Borderline personality disorder F60.3 [facility] [place] [address] [id number] [address] [place] [phone] February, [facility] [place] [address] [id number] [address] [place] [address] February, Paranoid schizophrenia F20.0 [facility] [place] [address] [id number] [address] [place] [address] February, Paranoid schizophrenia F20.0 [facility] [place] [address] [id number] [address] [place] [address] February, Paranoid schizophrenia F20.0 ; Posttraumatic stress disorder F43.10 ; Attention deficit hyperactivity disorder (ADHD), inattentive type, 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 and Borderline personality disorder F60.3 [facility] [place] [address] [id number] [address] [place] [address] Jan, Paranoid schizophrenia F20.0 ; Posttraumatic stress disorder F43.10 ; Attention deficit hyperactivity disorder (ADHD), inattentive type, 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 and Borderline personality disorder F60.3 [facility] [place] [address] [id number] [address] [place] [address] Dec, [facility] [place] [address] [id number] [address] [place] [phone] Nov, Paranoid schizophrenia F20.0 ; Posttraumatic stress disorder F43.10 ; Attention deficit hyperactivity disorder (ADHD), inattentive type, 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 and Borderline personality disorder F60.3 [facility] [place] [address] [id number] [address] [place] [phone] Jul, Paranoid schizophrenia F20.0 [facility] [place] [address] [id number] [address] [place] [phone] Jul, Paranoid schizophrenia F20.0 ; Posttraumatic stress disorder F43.10 ; Attention deficit hyperactivity disorder (ADHD), inattentive type, 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 and Borderline personality disorder F60.3 [facility] [place] [address] [id number] [address] [place] [phone] Jun, Paranoid schizophrenia F20.0 ; Posttraumatic stress disorder F43.10 ; Attention deficit hyperactivity disorder (ADHD), inattentive type, 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 and Borderline personality disorder F60.3 [facility] [place] [address] [id number] [address] [place] [phone] May, Other assisted (current) dr ug therapy Z79.899 [facility] [place] [address] [id number] [address] [place] [phone] May, [facility] [place] [address] [id number] [address] [place] [phone] May, [facility] [place] [address] [facility] [id number] [address] [place] [id number] May, Attention deficit hyperactiv ity disorder (ADHD), inattentive type, mild F90.0 [facility] [place] [address] 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 and Other assisted (current) drug therapy Z79.899 [facility] [place] [address] [id number] [address] [place] [address] Apr, Paranoid schizophrenia F20.0 [facility] [place] [address] [id number] [address] [place] [phone] Apr, Paranoid schizophrenia F20.0 ; Posttraumatic stress disorder F43.10 and Attention deficit hyperactivity disorder (ADHD), inattentive type, 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 [facility] [place] [address] [id number] [address] [place] [address] February, [facility] [place] [address] [id number] [address] [place] [phone] February, Paranoid schizophrenia F20.0 ; Posttraumatic stress disorder F43.10 and Attention deficit hyperactivity disorder (ADHD), inattentive type, 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 [facility] [place] [address] [id number] [address] [place] [address] February, Paranoid schizophrenia F20.0 ; Posttraumatic stress disorder F43.10 and Attention deficit hyperactivity disorder (ADHD), inattentive type, 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 [facility] [place] [address] [id number] [address] [place] [phone] Jan, Paranoid schizophrenia F20.0 ; Posttraumatic stress disorder F43.10 and Attention deficit hyperactivity disorder (ADHD), inattentive type, 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 [facility] [address] [id number] [address] [place] [id number] Dec, Dental examination Z01.20 [facility] [address] [id number] [address] [place] [address] [id number] Nov, Dental examination Z01.20 [facility] [address] [id number] [address] [place] [address] [id number] Nov, Dental examination Z01.20 [facility] [address] [id number] [address] [place] [address] [id number] Nov, Dental caries K02.9 [facility] [place] [address] [id number] [address] [place] [phone] Nov, High risk medication use Z79 .899 [facility] [place] [address] [id number] [address] [place] [address] Nov, Paranoid schizophrenia F20.0 ; Posttraumatic stress disorder F43.10 ; Attention deficit hyperactivity disorder (ADHD), inattentive type, 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 and Borderline personality disorder in adult F60.3 [facility] [address] [id number] [address] [place] [address] [id number] Oct, Dental caries K02.9 [facility] [place] [address] [id number] [address] [place] [phone] Sep, Paranoid schizophrenia F20.0 ; Posttraumatic stress disorder F43.10 and Attention deficit hyperactivity disorder (ADHD), inattentive type, 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 [facility] [place] [address] [id number] [address] [place] [phone] Aug, Paranoid schizophrenia F20.0 ; Posttraumatic stress disorder F43.10 and Attention deficit hyperactivity disorder (ADHD), inattentive type, 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 [facility] [address] [id number] [address] [place] [phone] Aug, Strep throat J02.0 and Cough R05 [facility] [place] [address] [id number] [address] [place] [phone] Aug, [facility] [place] [address] [id number] [address] [place] [phone] 24 Jul, 2016 Paranoid schizophrenia F20.0 ; Posttraumatic stress disorder F43.10 and Attention deficit hyperactivity disorder (ADHD), inattentive type, 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 [facility] [place] [address] [id number] [address] [place] [id number] Jul, [facility] [place] [address] [id number] [address] [place] [phone] Jun, Paranoid schizophrenia F20.0 ; Posttraumatic stress disorder F43.10 and Attention deficit hyperactivity disorder (ADHD), inattentive type, 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 [facility] [address] [id number] [address] [place] [address] [id number] Jun, Dental examination Z01.20 [facility] [place] [address] [id number] [address] [place] [phone] Jun, [facility] [place] [address] [id number] [address] [place] [phone] May, Paranoid schizophrenia F20.0 [facility] [place] [address] [id number] [address] [place] [phone] May, Paranoid schizophrenia F20.0 ; Posttraumatic stress disorder F43.10 and Attention deficit hyperactivity disorder (ADHD), inattentive type, 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 [facility] [place] [address] [id number] [address] [place] [phone] May, [facility] [place] [address] [id number] [address] [place] [phone] May, Paranoid schizophrenia F20.0 [facility] [place] [address] [id number] [address] [place] [phone] May, [facility] [place] [address] [id number] [address] [place] [phone] May, Paranoid schizophrenia F20.0 [facility] [place] [address] [id number] [address] [place] [phone] May, Schizoaffective disorder, un specified F25.9 [facility] [place] [address] [id number] [address] [place] [phone] May, Schizoaffective disorder, un specified F25.9 [facility] [place] [address] [id number] [address] [place] [phone] May, [facility] [place] [address] [id number] [address] [place] [phone] May, Paranoid schizophrenia F20.0 [facility] [place] [address] [id number] [address] [place] [id number] May, Paranoid schizophrenia F20.0 ; Posttraumatic stress disorder F43.10 and Attention deficit hyperactivity disorder (ADHD), inattentive type, 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 [facility] [address] [id number] [address] [place] [address], [place] [id number] Mar, [facility] [address] [id number] [address] [place] [phone] Mar, Paranoid schizophrenia F20.0 ; Posttraumatic stress disorder F43.10 and Attention deficit hyperactivity disorder (ADHD), inattentive type, 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 [facility] [place] [address] [id number] [address] [place] [address], [place] [id number] Mar, Paranoid schizophrenia F20.0 [facility] [place] [address] [id number] [address] [place] [address], [place] [id number] Mar, Paranoid schizophrenia F20.0 ; Attention deficit hyperactivity disorder (ADHD), inattentive type, 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 and Posttraumatic stress disorder F43.10 [facility] [place] [facility] [address] [id number] [address] [place] [id number] Mar, [facility] [address] [id number] [address] [place] [address], [place] [address] Mar, Paranoid schizophrenia F20.0 ; Posttraumatic stress disorder F43.10 and Attention deficit hyperactivity disorder (ADHD), inattentive type, 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 [facility] [address] [id number] [address] [place] [address], [place] [address] February, [facility] [address] [id number] [address] [place] [address] February, [facility] [address] [id number] [address] [place] [address], [place] [address] February, [facility] [address] [id number] [address] [place] [address] February, [facility] [address] [id number] [address] [place] [address], [place] [address] Jan, Paranoid schizophrenia F20.0 [facility] [address] [id number] [address] [place] [address] [id number] Jan, Dental examination Z01.20 [facility] [address] [id number] [address] [place] [address] [id number] Jan, Dental caries K02.9 [facility] [address] [id number] [address] [place] [address] [id number] Jan, Dental examination Z01.20 [facility] [address] [id number] [address] [place] [address] [id number] Dec, Encounter for dental examina tion Z01.20 [facility] [place] [address] [id number] [address] [place] [phone] Dec, Paranoid schizophrenia F20.0 [facility] [address] [id number] [address] [place] [address] [id number] Dec, Dental examination Z01.20 [facility] [place] [address] [id number] [address] [place] [phone] Dec, [facility] [place] [address] [id number] [address] [place] [phone] Dec, Paranoid schizophrenia F20.0 ; Posttraumatic stress disorder F43.10 and Attention deficit hyperactivity disorder (ADHD), inattentive type, 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 [facility] [place] [address] [id number] [address] [place] [phone] Nov, Schizoaffective disorder, un specified F25.9 [facility] [place] [address] [id number] [address] [place] [phone] Oct, Paranoid schizophrenia F20.0 [facility] [place] [address] [id number] [address] [place] [phone] Oct, [facility] [place] [address] [id number] [address] [place] [phone] Sep, Paranoid schizophrenia F20.0 ; Posttraumatic stress disorder F43.10 and Attention deficit hyperactivity disorder (ADHD), inattentive type, 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 [id number] [address] [place] [phone] Aug, Paranoid schizophrenia F20.0 [facility] [place] [address] [facility] [id number] [address] [place] [phone] Aug, [facility] [place] [address] 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 [id number] [address] [place] [id number] Jul, Bipolar disorder, unspecifie d F31.9 [facility] [place] [address] [facility] [id number] [address] [place] [phone] Jul, [facility] [place] [address] [facility] [id number] [address] [place] [phone] Jun, [facility] [place] [address] [facility] [id number] [address] [place] [phone] Jun, Schizoaffective disorder, ch ronic 295.72 ; Posttraumatic stress disorder 309.81 and Attention deficit disorder of childhood without mention of hyperactivity 314.00 [facility] [place] [address] [facility] [id number] [address] [place] [phone] May, [facility] [place] [address] [facility] [id number] [address] [place] [phone] May, [facility] [place] [address] [facility] [id number] [address] [place] [phone] May, Schizoaffective disorder, ch ronic 295.72 ; Posttraumatic stress disorder 309.81 ; Attention deficit disorder of childhood without mention of hyperactivity 314.00 and Bipolar disorder, unspecified 296.80 [facility] [place] [address] [facility] [id number] [address] [place] [phone] Apr, Schizoaffective disorder, ch ronic 295.72 [facility] [place] [address] [facility] [id number] [address] [place] [phone] Apr, [facility] [place] [address] [id number] [address] [place] [phone] Apr, Schizoaffective disorder, ch ronic 295.72 ; Posttraumatic stress disorder 309.81 and Attention deficit disorder of childhood without mention of hyperactivity 314.00 [facility] [place] [address] 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 [id number] [address] [place] [phone] Mar, [facility] [place] [address] [facility] [id number] [address] [place] [phone] Mar, [facility] [place] [address] [facility] [id number] [address] [place] [phone] Mar, [facility] [place] [address] [facility] [id number] [address] [place] [phone] Mar, [facility] [place] [address] [facility] [id number] [address] [place] [phone] February, Schizoaffective disorder, ch ronic 295.72 [facility] [place] [address] [facility] [id number] [address] [place] [phone] February, [facility] [place] [address] [facility] [id number] [address] [place] [phone] February, Attention 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 ; Posttraumatic stress disorder 309.81 and Schizoaffective disorder, chronic 295.72 [facility] [address] [id number] [address] [place] [address], [place] [address] 29 Jan, 2015 [facility] [address] [id number] [address] [place] [address], [place] [address] 14 Jan, 2015 [facility] [address] [id number] [address] [place] [address], [place] [address] Jan, [facility] [address] [id number] [address] [place] [address], [place] [address] Dec, [facility] [address] [id number] [address] [place] [address], [place] [address] Dec, [facility] [address] [id number] [address] [place] [address], [place] [address] Dec, [facility] [address] [id number] [address] [place] [address], [place] [address] Dec, [facility] [address] [id number] [address] [place] [address], [place] [address] Dec, [facility] [address] [id number] [address] [place] [address], [place] [address] Dec, [facility] [address] [id number] [address] [place] [address], [place] [address] Dec, [facility] [address] [id number] [address] [place] [address], [place] [address] Dec, [facility] [address] [id number] [address] [place] [address], [place] [address] Nov, [facility] [address] [id number] [address] [place] [address], [place] [address] Nov, [facility] [address] [id number] [address] [place] [address], [place] [address] Nov, [facility] [address] [id number] [address] [place] [address], [place] [address] Nov, [facility] [address] [id number] [address] [place] [address], [place] [address] Nov, [facility] [address] [id number] [address] [place] [address], [place] [address] Nov, [facility] [address] [id number] [address] [place] [address], [place] [address] Nov, [facility] [address] [id number] [address] [place] [address], [place] [address] Nov, [facility] [address] [id number] [address] [place] [address], [place] [address] Nov, [facility] [address] [id number] [address] [place] [address], [place] [address] Nov, [facility] [address] [id number] [address] [place] [address], [place] [address] Oct, [facility] [address] [id number] [address] [place] [address], [place] [address] Oct, [facility] [address] [id number] [address] [place] [address], [place] [address] Oct, [facility] [address] [id number] [address] [place] [address], [place] [address] Oct, [facility] [address] [id number] [address] [place] [address], [place] [address] Oct, [facility] [address] [id number] [address] [place] [address], [place] [address] Oct, [facility] [address] [id number] [address] [place] [address], [place] [address] Oct, [facility] [address] [id number] [address] [place] [address], [place] [address] Sep, [facility] [address] [id number] [address] [place] [address], [place] [address] Sep, [facility] [address] [id number] [address] [place] [address], [place] [address] Sep, [facility] [address] [id number] [address] [place] [address], [place] [address] 15 Sep, 2014 [facility] [address] [id number] [address] [place] [address], [place] [address] Aug, [facility] [address] [id number] [address] [place] [address], [place] [address] Aug, [facility] [address] [id number] [address] [place] [address], [place] [address] Aug, [facility] [address] [id number] [address] [place] [address], [place] [address] Aug, [facility] [address] [id number] [address] [place] [address], [place] [address] Aug, [facility] [address] [id number] [address] [place] [address], [place] [address] Aug, [facility] [address] [id number] [address] [place] [address], [place] [address] Jul, [facility] [address] [id number] [address] [place] [address], [place] [address] 29 Jul, 2014 [facility] [address] [id number] [address] [place] [address], [place] [address] 24 Jul, 2014 [facility] [address] [id number] [address] [place] [address], [place] [address] 24 Jul, 2014 [facility] [address] [id number] [address] [place] [address], [place] [address] 15 Jul, 2014 [facility] [address] [id number] [address] [place] [address], [place] [address] 15 Jul, 2014 [facility] [address] [id number] [address] [place] [address], [place] [address] 27 Jun, 2014 [facility] [address] [id number] [address] [place] [address], [place] [address] 27 Jun, 2014 [facility] [address] [id number] [address] [place] [address], [place] [address] Jun, 2013 [facility] [address] [id number] [facility] [place] [address] 26 Jun, 2013 [facility] [address] [id number] [facility] [place] [address] Jun, 2013 [facility] [address] [id number] [address] [place] [address], [place] [address] Jun, 2013 [facility] [address] [id number] [address] [place] [address], [place] [address] 16 Jun, 2013 [facility] [address] [id number] [address] [place] [address], [place] [address] 16 Jun, 2013 [facility] [address] [id number] [address] [place] [address], [place] [address] Jun, 2013 [facility] [address] [id number] [address] [place] [address], [place] [address] Jun, 2013 [facility] [address] [id number] [address] [place] [address], [place] [address] Jun, [facility] [address] [id number] [address] [place] [address], [place] [address] May, [facility] [address] [id number] [address] [place] [address], [place] [address] May, [facility] [address] [id number] [address] [place] [address], [place] [address] May, [facility] [address] [id number] [address] [place] [address], [place] [address] May, [facility] [address] [id number] [address] [place] [address], [place] [address] May, [facility] [address] [id number] [address] [place] [address], [place] [address] May, [facility] [address] [id number] [address] [place] [address], [place] [address] May, [facility] [address] [id number] [address] [place] [address], [place] [address] May, [facility] [address] [id number] [address] [place] [address], [place] [address] May, [facility] [address] [id number] [address] [place] [address], [place] [address] May, [facility] [address] [id number] [address] [place] [address], [place] [address] Apr, [facility] [address] [id number] [address] [place] [address], [place] [address] Apr, [facility] [address] [id number] [address] [place] [address], [place] [address] Apr, [facility] [address] [id number] [address] [place] [address], [place] [address] Apr, [facility] [address] [id number] [address] [place] [address], [place] [address] Apr, [facility] [address] [id number] [address] [place] [address], [place] [address] Apr, [facility] [address] [id number] [address] [place] [address], [place] [address] Apr, [facility] [address] [id number] [address] [place] [address], [place] [address] Apr, [facility] [address] [id number] [address] [place] [address], [place] [address] Apr, [facility] [address] [id number] [address] [place] [address], [place] [address] Apr, [facility] [address] [id number] [address] [place] [address], [place] [address] Mar, [facility] [address] [id number] [address] [place] [address], [place] [address] Mar, [facility] [address] [id number] [address] [place] [address], [place] [address] Mar, [facility] [address] [id number] [address] [place] [address], [place] [address] Mar, [facility] [address] [id number] [address] [place] [address], [place] [address] Mar, [facility] [address] [id number] [address] [place] [address], [place] [address] Mar, [facility] [address] [id number] [address] [place] [address], [place] [address] Mar, [facility] [address] [id number] [address] [place] [address], [place] [address] Mar, [facility] [address] [id number] [address] [place] [address], [place] [address] Mar, [facility] [address] [id number] [address] [place] [address], [place] [address] Mar, [facility] [address] [id number] [address] [place] [address], [place] [address] Mar, [facility] [address] [id number] [address] [place] [address], [place] [address] Mar, [facility] [address] [id number] [address] [place] [address], [place] [address] Mar, [facility] [address] [id number] [address] [place] [address], [place] [address] Mar, [facility] [address] [id number] [address] [place] [address], [place] [address] Mar, [facility] [address] [id number] [address] [place] [address], [place] [address] Mar, [facility] [address] [id number] [address] [place] [address], [place] [address] Mar, [facility] [address] [id number] [address] [place] [address], [place] [address] 09 Mar, 2014 [facility] [address] [id number] [address] [place] [address], [place] [address] Mar, [facility] [address] [id number] [facility] [place] [address] Mar, [facility] [address] [id number] [address] [place] [address], [place] [address] February, [facility] [address] [id number] [address] [place] [address], [place] [address] February, [facility] [address] [id number] [address] [place] [address], [place] [address] February, [facility] [address] [id number] [address] [place] [address], [place] [address] February, [facility] [address] [id number] [address] [place] [address], [place] [address] February, [facility] [address] [id number] [address] [place] [address], [place] [address] February, [facility] [address] [id number] [address] [place] [address], [place] [address] February, [facility] [address] [id number] [address] [place] [address], [place] [address] February, [facility] [address] [id number] [address] [place] [address], [place] [address] February, [facility] [address] [id number] [address] [place] [address], [place] [address] February, [facility] [address] [id number] [address] [place] [address], [place] [address] February, [facility] [address] [id number] [address] [place] [address], [place] [address] February, [facility] [address] [id number] [address] [place] [address], [place] [address] February, [facility] [address] [id number] [address] [place] [address], [place] [address] February, [facility] [address] [id number] [address] [place] [address], [place] [address] February, [facility] [address] [id number] [address] [place] [address], [place] [address] February, [facility] [address] [id number] [address] [place] [address], [place] [address] February, [facility] [address] [id number] [address] [place] [address], [place] [address] February, [facility] [address] [id number] [address] [place] [address], [place] [address] February, [facility] [address] [id number] [address] [place] [address], [place] [address] February, [facility] [address] [id number] [address] [place] [address], [place] [address] February, [facility] [address] [id number] [address] [place] [address], [place] [address] Jan, [facility] [address] [id number] [address] [place] [address], [place] [address] Jan, [facility] [address] [id number] [address] [place] [address], [place] [address] Jan, [facility] [address] [id number] [address] [place] [address], [place] [address] Jan, [facility] [address] [id number] [address] [place] [address], [place] [address] Jan, [facility] [address] [id number] [address] [place] [address], [place] [address] Jan, [facility] [address] [id number] [address] [place] [address], [place] [address] Jan, [facility] [address] [id number] [address] [place] [address], [place] [address] Jan, [facility] [address] [id number] [address] [place] [address], [place] [address] Dec, [facility] [address] [id number] [facility] [place] [address] 20 Dec, 2013 [facility] [address] [id number] [facility] [place] [address] 20 Dec, 2013 [facility] [address] [id number] [facility] [place] [address] 19 Dec, 2013 [facility] [address] [id number] 10 [place] [address], [place] [address] 19 Dec, 2013 [facility] [address] [id number] [address] [place] [address], [place] [address] 15 Dec, 2013 [facility] [place] [facility] [address] [id number] [address] [place] [address], [place] [address] 15 Dec, 2013 [facility] [address] [id number] [address] [place] [address], [place] [address] 11 Dec, 2013 [facility] [place] [facility] [address] [id number] [address] [place] [address], [place] [address] 10 Dec, 2013 [facility] [place] [facility] [address] [id number] [address] [place] [address], [place] [address] 10 Dec, 2013 [facility] [place] [facility] [address] [id number] [address] [place] [address], [place] [address] 18 Nov, 2013 [facility] [place] [facility] [address] [id number] [address] [place] [address], [place] [address] 17 Nov, 2013 [facility] [place] [facility] [address] [id number] [address] [place] [address], [place] [address] Nov, [facility] [place] [facility] [address] [id number] [address] [place] [address], [place] [address] 05 Nov, 2013 [facility] [place] [facility] [address] [id number] [address] [place] [address], [place] [address] 05 Nov, 2013 [facility] [place] [facility] [address] [id number] [address] [place] [address], [place] [address] Oct, [facility] [place] [facility] [address] [id number] [address] [place] [address] Oct, [facility] [address] [id number] [address] [place] [address], [place] [address] Oct, [facility] [address] [id number] [address] [place] [address], [place] [address] Sep, [facility] [address] [id number] [address] [place] [address], [place] [address] Sep, [facility] [address] [id number] [address] [place] [address], [place] [address] Sep, [facility] [address] [id number] [address] [place] [address], [place] [address] Sep, [facility] [address] [id number] [address] [place] [address], [place] [address] Aug, [facility] [address] [id number] [address] [place] [address], [place] [address] Aug, [facility] [address] [id number] [address] [place] [address], [place] [address] Jul, [facility] [address] [id number] [address] [place] [address], [place] [address] Jul, [facility] [address] [id number] [address] [place] [address], [place] [address] Jul, [facility] [address] [id number] [address] [place] [address], [place] [address] Jul, [facility] [address] [id number] [address] [place] [address], [place] [address] Jul, [facility] [address] [id number] [address] [place] [address], [place] [address] Jun, [facility] [address] [id number] [address] [place] [address], [place] [address] Jun, [facility] [address] [id number] [address] [place] [address], [place] [address] 19 Jun, 2013 [facility] [place] [facility] [address] [id number] [address] [place] [address], [place] [address] 18 Jun, 2013 [facility] [address] [id number] [address] [place] [address], [place] [address] 16 Jun, 2013 [facility] [address] [id number] [address] [place] [address], [place] [address] 12 Jun, 2013 [facility] [address] [id number] [address] [place] [address], [place] [address] 11 Jun, 2013 [facility] [address] [id number] [address] [place] [address], [place] [address] 30 May, 2013 [facility] [address] [id number] [address] [place] [address], [place] [address] May, [facility] [address] [id number] [address] [place] [address], [place] [address] Apr, [facility] [address] [id number] [address] [place] [address], [place] [address] Apr, [facility] [address] [id number] [address] [place] [address], [place] [address] Apr, [facility] [address] [id number] [address] [place] [address], [place] [address] Mar, [facility] [address] [id number] [address] [place] [address], [place] [address] Mar, [facility] [address] [id number] [address] [place] [address], [place] [address] February, [facility] [address] [id number] [address] [place] [address], [place] [address] February, [facility] [address] [id number] [address] [place] [address], [place] [address] February, [facility] [address] [id number] [address] [place] [address], [place] [address] February, [facility] [address] [id number] [address] [place] [address], [place] [address] 19 Jan, 2013 [facility] [address] [id number] [address] [place] [address], [place] [address] 17 Jan, 2013 [facility] [address] [id number] [address] [place] [address], [place] [address] 16 Jan, 2013 [facility] [address] [id number] [address] [place] [address], [place] [address] 29 Dec, 2012 [facility] [address] [id number] [address] [place] [address], [place] [address] Dec, [facility] [address] [id number] [address] [place] [address], [place] [address] Dec, [facility] [address] [id number] [address] [place] [address], [place] [address] 08 Dec, 2012 [facility] [address] [id number] [address] [place] [address], [place] [address] Nov, [facility] [address] [id number] [address] [place] [address], [place] [address] Nov, [facility] [address] [id number] [address] [place] [address], [place] [address] Oct, [facility] [address] [id number] [address] [place] [address], [place] [address] Oct, [facility] [address] [id number] [address] [place] [address], [place] [address] Oct, [facility] [address] [id number] [address] [place] [address], [place] [address] Oct, [facility] [address] [id number] [address] [place] [address], [place] [address] Aug, [facility] [address] [id number] [address] [place] [address], [place] [address] Aug, [facility] [address] [id number] [address] [place] [address], [place] [address] 18 Jun, 2012 [facility] [address] [id number] [facility] [place] [address] May, [facility] [address] [id number] [address] [place] [address], [place] [address] May, [facility] [address] [id number] [address] [place] [address], [place] [address] Apr, [facility] [address] [id number] [address] [place] [address], [place] [address] Apr, [facility] [address] [id number] [address] [place] [address], [place] [address] Apr, [facility] [address] [id number] [address] [place] [address], [place] [address] Mar, [facility] [address] [id number] [address] [place] [address], [place] [address] Mar, [facility] [address] [id number] [address] [place] [address], [place] [address] Mar, [facility] [address] [id number] [address] [place] [address], [place] [address] Mar, [facility] [address] [id number] [address] [place] [address], [place] [address] Mar, [facility] [address] [id number] [address] [place] [address], [place] [address] February, [facility] [address] [id number] [address] [place] [address], [place] [address] February, [facility] [address] [id number] [address] [place] [address], [place] [address] February, [facility] [address] [id number] [address] [place] [address], [place] [address] February, [facility] [address] [id number] [address] [place] [address], [place] [address] February, [facility] [address] [id number] [address] [place] [address], [place] [address] February, [facility] [address] [id number] [address] [place] [address], [place] [address] February, [facility] [address] [id number] [address] [place] [address], [place] [address] Jan, [facility] [address] [id number] [address] [place] [address], [place] [address] Jan, [facility] [address] [id number] [address] [place] [address], [place] [address] 17 Jan, 2012 [facility] [address] [id number] [address] [place] [address], [place] [address] Jan, [facility] [address] [id number] [address] [place] [address], [place] [address] Jan, [facility] [address] [id number] [address] [place] [address], [place] [address] Jan, [facility] [address] [id number] [address] [place] [address], [place] [address] 30 Dec, 2011 [facility] [address] [id number] [address] [place] [address], [place] [address] 24 Dec, 2011 [facility] [address] [id number] [address] [place] [address], [place] [address] Dec, [facility] [address] [id number] [address] [place] [address], [place] [address] Dec, [facility] [place] [facility] [address] [id number] [address] [place] [address], [place] [address] Dec, [facility] [place] [facility] [address] [id number] [address] [place] [address], [place] [address] Nov, [facility] [place] [facility] [address] [id number] [address] [place] [address], [place] [address] Nov, [facility] [place] [facility] [address] [id number] [address] [place] [address], [place] [address] Nov, [facility] [address] [id number] [address] [place] [address], [place] [address] 14 Nov, 2011 [facility] [address] [id number] [address] [place] [address], [place] [address] 10 Nov, 2011 [facility] [address] [id number] [address] [place] [address], [place] [address] Nov, [facility] [address] [id number] [address] [place] [address], [place] [address] Oct, [facility] [address] [id number] [address] [place] [address], [place] [address] Oct, [facility] [address] [id number] [address] [place] [address], [place] [address] Oct, [facility] [address] [id number] [address] [place] [address], [place] [address] Oct, [facility] [address] [id number] [address] [place] [address], [place] [address] Oct, [facility] [address] [id number] [address] [place] [address], [place] [address] Sep, [facility] [address] [id number] [address] [place] [address], [place] [address] Sep, [facility] [address] [id number] [address] [place] [address], [place] [address] Sep, [facility] [address] [id number] [address] [place] [address], [place] [address] 14 Sep, 2011 [facility] [address] [id number] [address] [place] [address], [place] [address] 14 Sep, 2011 [facility] [address] [id number] [address] [place] [address], [place] [address] 13 Sep, 2011 [facility] [address] [id number] [address] [place] [address], [place] [address] 12 Sep, 2011 [facility] [address] [id number] [address] [place] [address], [place] [address] Sep, [facility] [address] [id number] [address] [place] [address], [place] [address] Sep, [facility] [place] [facility] [address] [id number] [address] [place] [address], [place] [address] Aug, [facility] [place] [facility] [address] [id number] [address] [place] [address], [place] [address] Aug, [facility] [place] [facility] [address] [id number] [address] [place] [address], [place] [address] Aug, [facility] [address] [id number] [address] [place] [address], [place] [address] Aug, [facility] [place] [facility] [address] [id number] [address] [place] [address], [place] [address] Aug, [facility] [place] [facility] [address] [id number] [address] [place] [address], [place] [address] Aug, [facility] [place] [facility] [address] [id number] [address] [place] [address], [place] [address] Aug, [facility] [place] [facility] [address] [id number] [address] [place] [address], [place] [address] Aug, [facility] [place] [facility] [address] [id number] [address] [place] [address], [place] [address] Aug, [facility] [place] [facility] [address] [id number] [address] [place] [address], [place] [address] Aug, [facility] [place] [facility] [address] [id number] [address] [place] [address], [place] [address] Aug, [facility] [place] [facility] [address] [id number] [address] [place] [address], [place] [address] Aug, [facility] [place] [facility] [address] [id number] [address] [place] [address], [place] [address] Jul, [facility] [place] [facility] [address] [id number] [address] [place] [address], [place] [address] Jul, [facility] [place] [facility] [address] [id number] [address] [place] [id number] Jul, [facility] [place] [address] [id number] [address] [place] [address] Jul, [facility] [place] [address] [id number] [address] [place] [address] Jul, [facility] [place] [address] [id number] [address] [place] [address] Jul, [facility] [place] [address] [id number] [address] [place] [id number] Jul, [facility] [place] [address] [id number] [address] [place] [id number] Jul, [facility] [place] [address] [id number] [address] [place] [id number] Jul, [facility] [place] [address] [id number] [address] [place] [id number] Jul, [facility] [place] [address] [id number] [address] [place] [id number] Nov, [facility] [place] [address] [id number] [address] [place] [id number] Aug, [facility] [place] [address] [id number] [address] [place] [id number] Aug, [facility] [place] [address] [id number] [address] [place] [id number] Aug, [facility] [place] [address] [id number] [address] [place] [id number] Aug, [facility] [place] [address] [id number] [address] [place] [id number] Jul, IMMUNIZATIONS No Known Immunizations SOCIAL HISTORY Never Assessed REASON FOR VISIT EMR-[facility] PLAN OF CARE VITAL SIGNS MEDICATIONS Unknown [...]
--- OUTSIDE RECORDS SUMMARY | 2020-04-04 02:15 | XMS REPORT ---
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 Active 86915871 Problem Generalized anxiety disorder 300.02 A ctive 52099399 Problem Obsessive-compulsive disorders 300.3 Active 896801113 Problem Catatonic schizophrenia, 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 058598877 Problem Disorganized schizophrenia, 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 12087738 Problem Paranoid schizophrenia F20.0 Active 09178671 Problem Borderline personality disorder F60.3 Active 40012438 Problem Paranoid schizophrenia, unspecified condition 295.30 Active 01884883 Problem Schizoaffective disorder, depressive type F25.1 Active 29436780 Problem Bipolar disorder, unspecified 296.80 Active 23798874 Problem Schizoaffective disorder, unspecified F25.9 Active 15032897 Problem Attention deficit hyperactivity disorder (ADHD), inattentive type, 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 02538839 Problem Posttraumatic stress disorder F43.10 Active 40717955 Problem High risk medication use Z79.899 Activ e [id number] ALLERGIES No Information ENCOUNTERS Encounter Location Date Diagnosis [facility] [address] [facility] [id number] [address] [place] [phone] Jan, [facility] [address] [facility] [id number] [address] [place] [phone] Dec, Paranoid schizophrenia F20.0 ; Posttraumatic stress disorder F43.10 ; Attention deficit hyperactivity disorder (ADHD), inattentive type, 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 and Borderline personality disorder F60.3 [facility] [address] [facility] [id number] [address] [place] [phone] Dec, Paranoid schizophrenia F20.0 ; Posttraumatic stress disorder F43.10 ; Attention deficit hyperactivity disorder (ADHD), inattentive type, 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 and Borderline personality disorder F60.3 [facility] [address] [place] [id number] [address] [place] [id number] Oct, Paranoid schizophrenia F20.0 ; Posttraumatic stress disorder F43.10 ; Attention deficit hyperactivity disorder (ADHD), inattentive type, 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 and Borderline personality disorder F60.3 [facility] [address] [place] [id number] [address] [place] [id number] Oct, Paranoid schizophrenia F20.0 ; Posttraumatic stress disorder F43.10 ; Attention deficit hyperactivity disorder (ADHD), inattentive type, 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 [address] [facility] [id number] [address] [place] [phone] Jul, Dry skin dermatitis L85.3 [facility] [address] [facility] [id number] [address] [place] [phone] Jul, [facility] [address] [facility] [id number] [address] [place] [phone] Jul, Paranoid schizophrenia F20.0 [facility] [address] [facility] [id number] [address] [place] [id number] May, Paranoid schizophrenia F20.0 ; Posttraumatic stress disorder F43.10 ; Attention deficit hyperactivity disorder (ADHD), inattentive type, 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 and Borderline personality disorder F60.3 [facility] [address] [facility] [id number] [address] [place] [id number] May, [facility] [address] [id number] [place] [address] May, Paranoid schizophrenia F20.0 [facility] [address] [id number] [address] [place] [address], [place] [address] May, Paranoid schizophrenia F20.0 ; Posttraumatic stress disorder F43.10 ; Attention deficit hyperactivity disorder (ADHD), inattentive type, 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 and Borderline personality disorder F60.3 [facility] [address] [id number] [facility] [place] [address] Apr, [facility] [address] [id number] [address] [place] [address], [place] [address] Apr, Paranoid schizophrenia F20.0 ; Posttraumatic stress disorder F43.10 ; Attention deficit hyperactivity disorder (ADHD), inattentive type, 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 and Borderline personality disorder F60.3 [facility] [address] [id number] [address] [place] [phone] Apr, [facility] [address] [id number] [address] [place] [phone] Apr, Schizoaffective disorder, de pressive type F25.1 and Borderline personality disorder F60.3 [facility] [address] [id number] [address] [place] [id number] Apr, Paranoid schizophrenia F20.0 ; Posttraumatic stress disorder F43.10 ; Attention deficit hyperactivity disorder (ADHD), inattentive type, 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 and Borderline personality disorder F60.3 [facility] [address] [id number] [address] [place] [id number] Apr, [facility] [address] [id number] [address] [place] [phone] Apr, Paranoid schizophrenia F20.0 ; Posttraumatic stress disorder F43.10 ; Attention deficit hyperactivity disorder (ADHD), inattentive type, 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 and Borderline personality disorder F60.3 [facility] [address] [id number] [address] [place] [id number] Apr, [facility] [address] [id number] [address] [place] [id number] Mar, Paranoid schizophrenia F20.0 [facility] [address] [id number] [address] [place] [id number] Mar, [facility] [address] [id number] [address] [place] [id number] Mar, Paranoid schizophrenia F20.0 ; Posttraumatic stress disorder F43.10 ; Attention deficit hyperactivity disorder (ADHD), inattentive type, 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 and Borderline personality disorder F60.3 [facility] [address] [id number] [address] [place] [phone] February, Paranoid schizophrenia F20.0 [facility] [address] [id number] [address] [place] [id number] February, Paranoid schizophrenia F20.0 ; Posttraumatic stress disorder F43.10 ; Attention deficit hyperactivity disorder (ADHD), inattentive type, 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 and Borderline personality disorder F60.3 [facility] [address] [id number] [address] [place] [id number] February, Paranoid schizophrenia F20.0 ; Posttraumatic stress disorder F43.10 ; Attention deficit hyperactivity disorder (ADHD), inattentive type, 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 and Borderline personality disorder F60.3 [facility] [address] [id number] [address] [place] [id number] February, [facility] [address] [id number] [address] [place] [id number] February, Paranoid schizophrenia F20.0 [facility] [address] [id number] [address] [place] [id number] February, Paranoid schizophrenia F20.0 [facility] [address] [id number] [address] [place] [id number] February, Paranoid schizophrenia F20.0 ; Posttraumatic stress disorder F43.10 ; Attention deficit hyperactivity disorder (ADHD), inattentive type, 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 and Borderline personality disorder F60.3 [facility] [address] [id number] [address] [place] [id number] Jan, Paranoid schizophrenia F20.0 ; Posttraumatic stress disorder F43.10 ; Attention deficit hyperactivity disorder (ADHD), inattentive type, 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 and Borderline personality disorder F60.3 [facility] [address] [id number] [address] [place] [id number] Jan, Paranoid schizophrenia F20.0 [facility] [address] [id number] [address] [place] [phone] Jan, Paranoid schizophrenia F20.0 [facility] [address] [facility] [id number] [address] [place] [phone] Jan, Paranoid schizophrenia F20.0 ; Posttraumatic stress disorder F43.10 ; Attention deficit hyperactivity disorder (ADHD), inattentive type, 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 and Borderline personality disorder F60.3 [facility] [address] [id number] [address] [place] [id number] Dec, [facility] [address] [id number] [address] [place] [id number] Nov, Paranoid schizophrenia F20.0 ; Posttraumatic stress disorder F43.10 ; Attention deficit hyperactivity disorder (ADHD), inattentive type, 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 and Borderline personality disorder F60.3 [facility] [address] [id number] [address] [place] [id number] Nov, [facility] [address] [id number] [address] [place] [id number] Oct, Paranoid schizophrenia F20.0 [facility] [address] [facility] [id number] [address] [place] [id number] Oct, Paranoid schizophrenia F20.0 ; Posttraumatic stress disorder F43.10 ; Attention deficit hyperactivity disorder (ADHD), inattentive type, 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 ; Borderline personality disorder F60.3 and Other senior care (current) drug therapy Z79.899 [facility] [address] [id number] [address] [place] [id number] Oct, [facility] [address] [facility] [id number] [address] [place] [id number] Oct, [facility] [address] [id number] [address] [place] [id number] Sep, [facility] [address] [id number] [address] [place] [id number] Sep, Paranoid schizophrenia F20.0 ; Posttraumatic stress disorder F43.10 ; Attention deficit hyperactivity disorder (ADHD), inattentive type, 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 and Borderline personality disorder F60.3 [facility] [address] [facility] [id number] [address] [place] [id number] Sep, Paranoid schizophrenia F20.0 [facility] [address] [id number] [address] [place] [id number] Aug, Paranoid schizophrenia F20.0 ; Posttraumatic stress disorder F43.10 ; Attention deficit hyperactivity disorder (ADHD), inattentive type, 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 and Borderline personality disorder F60.3 [facility] [address] [facility] [id number] [address] [place] [id number] Aug, Paranoid schizophrenia F20.0 ; Posttraumatic stress disorder F43.10 ; Attention deficit hyperactivity disorder (ADHD), inattentive type, 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 and Borderline personality disorder F60.3 [facility] [address] [id number] [address] [place] [id number] Aug, [facility] [address] [facility] [id number] [address] [place] [id number] Jul, Paranoid schizophrenia F20.0 ; Posttraumatic stress disorder F43.10 ; Attention deficit hyperactivity disorder (ADHD), inattentive type, 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 and Borderline personality disorder F60.3 [facility] [address] [id number] [address] [place] [id number] Jul, Paranoid schizophrenia F20.0 [facility] [address] [id number] [address] [place] [id number] Jul, Paranoid schizophrenia F20.0 ; Posttraumatic stress disorder F43.10 ; Attention deficit hyperactivity disorder (ADHD), inattentive type, 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 and Borderline personality disorder F60.3 [facility] [address] [id number] [address] [place] [id number] Jun, Paranoid schizophrenia F20.0 ; Posttraumatic stress disorder F43.10 ; Attention deficit hyperactivity disorder (ADHD), inattentive type, 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 and Borderline personality disorder F60.3 [facility] [address] [id number] [address] [place] [id number] May, Other senior care (current) dr ug therapy Z79.899 [facility] [address] [id number] [address] [place] [id number] May, [facility] [address] [id number] [address] [place] [id number] May, [facility] [address] [facility] [id number] [address] [place] [id number] May, Attention deficit hyperactiv ity disorder (ADHD), inattentive type, mild F90.0 [facility] [address] [facility] [id number] [address] [place] [id number] May, [facility] [address] [id number] [address] [place] [id number] May, Attention deficit hyperactiv ity disorder (ADHD), inattentive type, mild F90.0 [facility] [address] [id number] [address] [place] [id number] May, Paranoid schizophrenia F20.0 ; Posttraumatic stress disorder F43.10 ; Attention deficit hyperactivity disorder (ADHD), inattentive type, 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 and Other senior care (current) drug therapy Z79.899 [facility] [address] [id number] [address] [place] [id number] Apr, Paranoid schizophrenia F20.0 [facility] [address] [id number] [address] [place] [id number] Apr, Paranoid schizophrenia F20.0 ; Posttraumatic stress disorder F43.10 and Attention deficit hyperactivity disorder (ADHD), inattentive type, 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 [facility] [address] [id number] [address] [place] [id number] February, [facility] [address] [id number] [address] [place] [id number] February, Paranoid schizophrenia F20.0 ; Posttraumatic stress disorder F43.10 and Attention deficit hyperactivity disorder (ADHD), inattentive type, 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 [facility] [address] [id number] [address] [place] [id number] February, Paranoid schizophrenia F20.0 ; Posttraumatic stress disorder F43.10 and Attention deficit hyperactivity disorder (ADHD), inattentive type, 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 [facility] [address] [id number] [address] [place] [phone] Jan, Paranoid schizophrenia F20.0 ; Posttraumatic stress disorder F43.10 and Attention deficit hyperactivity disorder (ADHD), inattentive type, 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 [facility] [address] [id number] [address] [place] [id number] Dec, Dental examination Z01.20 [facility] [address] [id number] [address] [place] [address] [id number] Nov, Dental examination Z01.20 [facility] [address] [id number] [address] [place] [id number] Nov, Dental examination Z01.20 [facility] [address] [id number] [address] [place] [address] [id number] Nov, Dental caries K02.9 [facility] [address] [id number] [address] [place] [id number] Nov, High risk medication use Z79 .899 [facility] [address] [id number] [address] [place] [id number] Nov, Paranoid schizophrenia F20.0 ; Posttraumatic stress disorder F43.10 ; Attention deficit hyperactivity disorder (ADHD), inattentive type, 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 and Borderline personality disorder in adult F60.3 [facility] [address] [id number] [address] [place] [address] [id number] Oct, Dental caries K02.9 [facility] [address] [id number] [address] [place] [id number] Sep, Paranoid schizophrenia F20.0 ; Posttraumatic stress disorder F43.10 and Attention deficit hyperactivity disorder (ADHD), inattentive type, 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 [facility] [address] [id number] [address] [place] [id number] Aug, Paranoid schizophrenia F20.0 ; Posttraumatic stress disorder F43.10 and Attention deficit hyperactivity disorder (ADHD), inattentive type, 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 [facility] [address] [id number] [address] [place] [phone] Aug, Strep throat J02.0 and Cough R05 [facility] [address] [id number] [address] [place] [phone] Aug, [facility] [address] [id number] [address] [place] [phone] 24 Jul, 2016 Paranoid schizophrenia F20.0 ; Posttraumatic stress disorder F43.10 and Attention deficit hyperactivity disorder (ADHD), inattentive type, 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 [facility] [address] [id number] [address] [place] [phone] Jul, [facility] [address] [id number] [address] [place] [id number] Jun, Paranoid schizophrenia F20.0 ; Posttraumatic stress disorder F43.10 and Attention deficit hyperactivity disorder (ADHD), inattentive type, 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 [facility] [address] [id number] [address] [place] [address] [id number] Jun, Dental examination Z01.20 [facility] [address] [id number] [address] [place] [id number] Jun, [facility] [address] [id number] [address] [place] [id number] May, Paranoid schizophrenia F20.0 [facility] [address] [id number] [address] [place] [id number] May, Paranoid schizophrenia F20.0 ; Posttraumatic stress disorder F43.10 and Attention deficit hyperactivity disorder (ADHD), inattentive type, 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 [facility] [address] [id number] [address] [place] [id number] May, [facility] [address] [id number] [address] [place] [id number] May, Paranoid schizophrenia F20.0 [facility] [address] [id number] [address] [place] [id number] May, [facility] [address] [id number] [address] [place] [phone] May, Paranoid schizophrenia F20.0 [facility] [address] [id number] [address] [place] [id number] May, Schizoaffective disorder, un specified F25.9 [facility] [address] [id number] [address] [place] [phone] May, Schizoaffective disorder, un specified F25.9 [facility] [address] [id number] [address] [place] [id number] May, [facility] [address] [id number] [address] [place] [id number] May, Paranoid schizophrenia F20.0 [facility] [address] [id number] [address] [place] [id number] May, Paranoid schizophrenia F20.0 ; Posttraumatic stress disorder F43.10 and Attention deficit hyperactivity disorder (ADHD), inattentive type, 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 [facility] [address] [id number] [address] [place] [address], [place] [address] Mar, [facility] [address] [id number] [facility] [place] [address] Mar, Paranoid schizophrenia F20.0 ; Posttraumatic stress disorder F43.10 and Attention deficit hyperactivity disorder (ADHD), inattentive type, 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 [facility] [address] [id number] [address] [place] [address], [place] [address] Mar, Paranoid schizophrenia F20.0 [facility] [address] [id number] [address] [place] [address], [place] [address] Mar, Paranoid schizophrenia F20.0 ; Attention deficit hyperactivity disorder (ADHD), inattentive type, 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 and Posttraumatic stress disorder F43.10 [facility] [address] [id number] [address] [place] [id number] Mar, [facility] [address] [id number] [address] [place] [address], [place] [address] Mar, Paranoid schizophrenia F20.0 ; Posttraumatic stress disorder F43.10 and Attention deficit hyperactivity disorder (ADHD), inattentive type, 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 [facility] [address] [id number] [address] [place] [address], [place] [address] February, [facility] [address] [id number] [address] [place] [phone] February, [facility] [address] [id number] [address] [place] [address], [place] [address] February, [facility] [address] [id number] [address] [place] [id number] February, [facility] [address] [id number] [address] [place] [address], [place] [address] Jan, Paranoid schizophrenia F20.0 [facility] [address] [id number] [address] [place] [address] [id number] Jan, Dental examination Z01.20 [facility] [address] [id number] [address] [place] [address] [id number] Jan, Dental caries K02.9 [facility] [address] [id number] [address] [place] [address] [id number] Jan, Dental examination Z01.20 [facility] [address] [id number] [address] [place] [address] [id number] Dec, Encounter for dental examina tion Z01.20 [facility] [address] [id number] [address] [place] [id number] Dec, Paranoid schizophrenia F20.0 [facility] [address] [id number] [address] [place] [address] [id number] Dec, Dental examination Z01.20 [facility] [address] [id number] [address] [place] [id number] Dec, [facility] [address] [id number] [address] [place] [id number] Dec, Paranoid schizophrenia F20.0 ; Posttraumatic stress disorder F43.10 and Attention deficit hyperactivity disorder (ADHD), inattentive type, 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 [facility] [address] [id number] [address] [place] [id number] Nov, Schizoaffective disorder, un specified F25.9 [facility] [address] [id number] [address] [place] [id number] Oct, Paranoid schizophrenia F20.0 [facility] [address] [id number] [address] [place] [phone] Oct, [facility] [address] [id number] [address] [place] [id number] Sep, Paranoid schizophrenia F20.0 ; Posttraumatic stress disorder F43.10 and Attention deficit hyperactivity disorder (ADHD), inattentive type, 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 [facility] [address] [id number] [address] [place] [phone] Sep, [facility] [address] [facility] [id number] [address] [place], [place] [address] Sep, Paranoid schizophrenia F20.0 ; Posttraumatic stress disorder F43.10 and Attention deficit hyperactivity disorder (ADHD), inattentive type, 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 [facility] [address] [facility] [place] [id number] [address] [place] [id number] Aug, Paranoid schizophrenia F20.0 [facility] [address] [facility] [place] [id number] [address] [place] [id number] Aug, [facility] [address] [facility] [place] [id number] [address] [place] [id number] Aug, Posttraumatic stress disorde r F43.10 ; Paranoid schizophrenia F20.0 and Attention deficit hyperactivity disorder (ADHD), inattentive type, 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 [facility] [address] [facility] [id number] [address] [place] [address] Jul, Bipolar disorder, unspecifie d F31.9 [facility] [address] [facility] [place] [id number] [address] [place] [address] Jul, [facility] [address] [facility] [id number] [address] [place] [address] Jun, [facility] [address] [facility] [id number] [address] [place] [address] Jun, Schizoaffective disorder, ch ronic 295.72 ; Posttraumatic stress disorder 309.81 and Attention deficit disorder of childhood without mention of hyperactivity 314.00 [facility] [address] [facility] [id number] [address] [place] [address] May, [facility] [address] [facility] [id number] [address] [place] [address] May, [facility] [address] [facility] [id number] [address] [place] [address] May, Schizoaffective disorder, ch ronic 295.72 ; Posttraumatic stress disorder 309.81 ; Attention deficit disorder of childhood without mention of hyperactivity 314.00 and Bipolar disorder, unspecified 296.80 [facility] [address] [facility] [id number] [address] [place] [address] Apr, Schizoaffective disorder, ch ronic 295.72 [facility] [address] [facility] [id number] [address] [place] [address] Apr, [facility] [address] [id number] [address] [place] [address] Apr, Schizoaffective disorder, ch ronic 295.72 ; Posttraumatic stress disorder 309.81 and Attention deficit disorder of childhood without mention of hyperactivity 314.00 [facility] [address] [facility] [id number] [address] [place] [address] Mar, Disorganized schizophrenia, 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 [facility] [address] [facility] [id number] [address] [place] [address] Mar, [facility] [address] [facility] [id number] [address] [place] [address] Mar, [facility] [address] [facility] [id number] [address] [place] [address] Mar, [facility] [address] [facility] [id number] [address] [place] [address] Mar, [facility] [address] [facility] [id number] [address] [place] [address] February, Schizoaffective disorder, ch ronic 295.72 [facility] [address] [facility] [id number] [address] [place] [address] February, [facility] [address] [facility] [id number] [address] [place] [address] February, Attention 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 ; Posttraumatic stress disorder 309.81 and Schizoaffective disorder, chronic 295.72 [facility] [address] [id number] [address] [place] [address], [place] [address] 29 Jan, 2015 [facility] [address] [id number] [address] [place] [address], [place] [address] 14 Jan, 2015 [facility] [address] [id number] [address] [place] [address], [place] [address] Jan, [facility] [address] [id number] [address] [place] [address], [place] [address] Dec, [facility] [address] [id number] [address] [place] [address], [place] [address] Dec, [facility] [address] [id number] [address] [place] [address], [place] [address] Dec, [facility] [address] [id number] [address] [place] [address], [place] [address] Dec, [facility] [address] [id number] [address] [place] [address], [place] [address] Dec, [facility] [address] [id number] [address] [place] [address], [place] [address] Dec, [facility] [address] [id number] [address] [place] [address], [place] [address] Dec, [facility] [address] [id number] [address] [place] [address], [place] [address] Dec, [facility] [address] [id number] [address] [place] [address], [place] [address] Nov, [facility] [address] [id number] [address] [place] [address], [place] [address] Nov, [facility] [address] [id number] [address] [place] [address], [place] [address] Nov, [facility] [address] [id number] [address] [place] [address], [place] [address] Nov, [facility] [address] [id number] [address] [place] [address], [place] [address] Nov, [facility] [address] [id number] [address] [place] [address], [place] [address] Nov, [facility] [address] [id number] [address] [place] [address], [place] [address] Nov, [facility] [address] [id number] [address] [place] [address], [place] [address] Nov, [facility] [address] [id number] [address] [place] [address], [place] [address] Nov, [facility] [address] [id number] [address] [place] [address], [place] [address] Nov, [facility] [address] [id number] [address] [place] [address], [place] [address] Oct, [facility] [address] [id number] [address] [place] [address], [place] [address] Oct, [facility] [address] [id number] [address] [place] [address], [place] [address] Oct, [facility] [address] [id number] [address] [place] [address], [place] [address] Oct, [facility] [address] [id number] [address] [place] [address], [place] [address] Oct, [facility] [address] [id number] [address] [place] [address], [place] [address] Oct, [facility] [address] [id number] [address] [place] [address], [place] [address] Oct, [facility] [address] [id number] [address] [place] [address], [place] [address] Sep, [facility] [address] [id number] [address] [place] [address], [place] [address] Sep, [facility] [address] [id number] [address] [place] [address], [place] [address] Sep, [facility] [address] [id number] [address] [place] [address], [place] [address] 15 Sep, 2014 [facility] [address] [id number] [address] [place] [address], [place] [address] Aug, [facility] [address] [id number] [address] [place] [address], [place] [address] Aug, [facility] [address] [id number] [address] [place] [address], [place] [address] Aug, [facility] [address] [id number] [address] [place] [address], [place] [address] Aug, [facility] [address] [id number] [address] [place] [address], [place] [address] Aug, [facility] [address] [id number] [address] [place] [address], [place] [address] Aug, [facility] [address] [id number] [address] [place] [address], [place] [address] Jul, [facility] [address] [id number] [address] [place] [address], [place] [address] 29 Jul, 2014 [facility] [address] [id number] [address] [place] [address], [place] [address] 24 Jul, 2014 [facility] [address] [id number] [address] [place] [address], [place] [address] 24 Jul, 2014 [facility] [address] [id number] [address] [place] [address], [place] [address] 15 Jul, 2014 [facility] [address] [id number] [address] [place] [address], [place] [address] 15 Jul, 2014 [facility] [address] [id number] [address] [place] [address], [place] [address] 27 Jun, 2014 [facility] [address] [id number] [address] [place] [address], [place] [address] 27 Jun, 2014 [facility] [address] [id number] [address] [place] [address], [place] [address] Jun, 2013 [facility] [address] [id number] [facility] [place] [address] 26 Jun, 2013 [facility] [address] [id number] [facility] [place] [address] Jun, 2013 [facility] [address] [id number] [address] [place] [address], [place] [address] Jun, 2013 [facility] [address] [id number] [address] [place] [address], [place] [address] 16 Jun, 2013 [facility] [address] [id number] [address] [place] [address], [place] [address] 16 Jun, 2013 [facility] [address] [id number] [address] [place] [address], [place] [address] Jun, 2013 [facility] [address] [id number] [address] [place] [address], [place] [address] Jun, 2013 [facility] [address] [id number] [address] [place] [address], [place] [address] Jun, [facility] [address] [id number] [address] [place] [address], [place] [address] May, [facility] [address] [id number] [address] [place] [address], [place] [address] May, [facility] [address] [id number] [address] [place] [address], [place] [address] May, [facility] [address] [id number] [address] [place] [address], [place] [address] May, [facility] [address] [id number] [address] [place] [address], [place] [address] May, [facility] [address] [id number] [address] [place] [address], [place] [address] May, [facility] [address] [id number] [address] [place] [address], [place] [address] May, [facility] [address] [id number] [address] [place] [address], [place] [address] May, [facility] [address] [id number] [address] [place] [address], [place] [address] May, [facility] [address] [id number] [address] [place] [address], [place] [address] May, [facility] [address] [id number] [address] [place] [address], [place] [address] Apr, [facility] [address] [id number] [address] [place] [address], [place] [address] Apr, [facility] [address] [id number] [address] [place] [address], [place] [address] Apr, [facility] [address] [id number] [address] [place] [address], [place] [address] Apr, [facility] [address] [id number] [address] [place] [address], [place] [address] Apr, [facility] [address] [id number] [address] [place] [address], [place] [address] Apr, [facility] [address] [id number] [address] [place] [address], [place] [address] Apr, [facility] [address] [id number] [address] [place] [address], [place] [address] Apr, [facility] [address] [id number] [address] [place] [address], [place] [address] Apr, [facility] [address] [id number] [address] [place] [address], [place] [address] Apr, [facility] [address] [id number] [address] [place] [address], [place] [address] Mar, [facility] [address] [id number] [address] [place] [address], [place] [address] Mar, [facility] [address] [id number] [address] [place] [address], [place] [address] Mar, [facility] [address] [id number] [address] [place] [address], [place] [address] Mar, [facility] [address] [id number] [address] [place] [address], [place] [address] Mar, [facility] [address] [id number] [address] [place] [address], [place] [address] Mar, [facility] [address] [id number] [address] [place] [address], [place] [address] Mar, [facility] [address] [id number] [address] [place] [address], [place] [address] Mar, [facility] [address] [id number] [address] [place] [address], [place] [address] Mar, [facility] [address] [id number] [address] [place] [address], [place] [address] Mar, [facility] [address] [id number] [address] [place] [address], [place] [address] Mar, [facility] [address] [id number] [address] [place] [address], [place] [address] Mar, [facility] [address] [id number] [address] [place] [address], [place] [address] Mar, [facility] [address] [id number] [address] [place] [address], [place] [address] Mar, [facility] [address] [id number] [address] [place] [address], [place] [address] Mar, [facility] [address] [id number] [address] [place] [address], [place] [address] Mar, [facility] [address] [id number] [address] [place] [address], [place] [address] Mar, [facility] [address] [id number] [address] [place] [address], [place] [address] 09 Mar, 2014 [facility] [address] [id number] [address] [place] [address], [place] [address] Mar, [facility] [address] [id number] [facility] [place] [address] Mar, [facility] [address] [id number] [address] [place] [address], [place] [address] February, [facility] [address] [id number] [address] [place] [address], [place] [address] February, [facility] [address] [id number] [address] [place] [address], [place] [address] February, [facility] [address] [id number] [address] [place] [address], [place] [address] February, [facility] [address] [id number] [address] [place] [address], [place] [address] February, [facility] [address] [id number] [address] [place] [address], [place] [address] February, [facility] [address] [id number] [address] [place] [address], [place] [address] February, [facility] [address] [id number] [address] [place] [address], [place] [address] February, [facility] [address] [id number] [address] [place] [address], [place] [address] February, [facility] [address] [id number] [address] [place] [address], [place] [address] February, [facility] [address] [id number] [address] [place] [address], [place] [address] February, [facility] [address] [id number] [address] [place] [address], [place] [address] February, [facility] [address] [id number] [address] [place] [address], [place] [address] February, [facility] [address] [id number] [address] [place] [address], [place] [address] February, [facility] [address] [id number] [address] [place] [address], [place] [address] February, [facility] [address] [id number] [address] [place] [address], [place] [address] February, [facility] [address] [id number] [address] [place] [address], [place] [address] February, [facility] [address] [id number] [address] [place] [address], [place] [address] February, [facility] [address] [id number] [address] [place] [address], [place] [address] February, [facility] [address] [id number] [address] [place] [address], [place] [address] February, [facility] [address] [id number] [address] [place] [address], [place] [address] February, [facility] [address] [id number] [address] [place] [address], [place] [address] Jan, [facility] [address] [id number] [address] [place] [address], [place] [address] Jan, [facility] [address] [id number] [address] [place] [address], [place] [address] Jan, [facility] [address] [id number] [address] [place] [address], [place] [address] Jan, [facility] [address] [id number] [address] [place] [address], [place] [address] Jan, [facility] [address] [id number] [address] [place] [address], [place] [address] Jan, [facility] [address] [id number] [address] [place] [address], [place] [address] Jan, [facility] [address] [id number] [address] [place] [address], [place] [address] Jan, [facility] [address] [id number] [address] [place] [address], [place] [address] Dec, [facility] [address] [id number] [facility] [place] [address] 20 Dec, 2013 [facility] [address] [id number] [facility] [place] [address] 20 Dec, 2013 [facility] [address] [id number] [facility] [place] [address] 19 Dec, 2013 [facility] [place] [facility] [address] [id number] [address] [place] [address], [place] [address] 19 Dec, 2013 [facility] [address] [id number] [address] [place] [address], [place] [address] 15 Dec, 2013 [facility] [place] [facility] [address] [id number] [address] [place] [address], [place] [address] 15 Dec, 2013 [facility] [address] [id number] [address] [place] [address], [place] [address] 11 Dec, 2013 [facility] [place] [facility] [address] [id number] [address] [place] [address], [place] [address] 10 Dec, 2013 [facility] [place] [facility] [address] [id number] [address] [place] [address], [place] [address] 10 Dec, 2013 [facility] [place] [facility] [address] [id number] [address] [place] [address], [place] [address] 18 Nov, 2013 [facility] [place] [facility] [address] [id number] [address] [place] [address], [place] [address] 17 Nov, 2013 [facility] [place] [facility] [address] [id number] [address] [place] [address], [place] [address] Nov, [facility] [place] [facility] [address] [id number] [address] [place] [address], [place] [address] 05 Nov, 2013 [facility] [place] [facility] [address] [id number] [address] [place] [address], [place] [address] 05 Nov, 2013 [facility] [place] [facility] [address] [id number] [address] [place] [address], [place] [address] Oct, [facility] [place] [facility] [address] [id number] [address] [place] [address] Oct, [facility] [address] [id number] [address] [place] [address], [place] [address] Oct, [facility] [address] [id number] [address] [place] [address], [place] [address] Sep, [facility] [address] [id number] [address] [place] [address], [place] [address] Sep, [facility] [address] [id number] [address] [place] [address], [place] [address] Sep, [facility] [address] [id number] [address] [place] [address], [place] [address] Sep, [facility] [address] [id number] [address] [place] [address], [place] [address] Aug, [facility] [address] [id number] [address] [place] [address], [place] [address] Aug, [facility] [address] [id number] [address] [place] [address], [place] [address] Jul, [facility] [address] [id number] [address] [place] [address], [place] [address] Jul, [facility] [address] [id number] [address] [place] [address], [place] [address] Jul, [facility] [address] [id number] [address] [place] [address], [place] [address] Jul, [facility] [address] [id number] [address] [place] [address], [place] [address] Jul, [facility] [address] [id number] [address] [place] [address], [place] [address] Jun, [facility] [address] [id number] [address] [place] [address], [place] [address] Jun, [facility] [address] [id number] [address] [place] [address], [place] [address] 19 Jun, 2013 [facility] [place] [facility] [address] [id number] [address] [place] [address], [place] [address] 18 Jun, 2013 [facility] [address] [id number] [address] [place] [address], [place] [address] 16 Jun, 2013 [facility] [address] [id number] [address] [place] [address], [place] [address] 12 Jun, 2013 [facility] [address] [id number] [address] [place] [address], [place] [address] 11 Jun, 2013 [facility] [address] [id number] [address] [place] [address], [place] [address] 30 May, 2013 [facility] [address] [id number] [address] [place] [address], [place] [address] May, [facility] [address] [id number] [address] [place] [address], [place] [address] Apr, [facility] [address] [id number] [address] [place] [address], [place] [address] Apr, [facility] [address] [id number] [address] [place] [address], [place] [address] Apr, [facility] [address] [id number] [address] [place] [address], [place] [address] Mar, [facility] [address] [id number] [address] [place] [address], [place] [address] Mar, [facility] [address] [id number] [address] [place] [address], [place] [address] February, [facility] [address] [id number] [address] [place] [address], [place] [address] February, [facility] [address] [id number] [address] [place] [address], [place] [address] February, [facility] [address] [id number] [address] [place] [address], [place] [address] February, [facility] [address] [id number] [address] [place] [address], [place] [address] 19 Jan, 2013 [facility] [address] [id number] [address] [place] [address], [place] [address] 17 Jan, 2013 [facility] [address] [id number] [address] [place] [address], [place] [address] 16 Jan, 2013 [facility] [address] [id number] [address] [place] [address], [place] [address] 29 Dec, 2012 [facility] [address] [id number] [address] [place] [address], [place] [address] Dec, [facility] [address] [id number] [address] [place] [address], [place] [address] Dec, [facility] [address] [id number] [address] [place] [address], [place] [address] 08 Dec, 2012 [facility] [address] [id number] [address] [place] [address], [place] [address] Nov, [facility] [address] [id number] [address] [place] [address], [place] [address] Nov, [facility] [address] [id number] [address] [place] [address], [place] [address] Oct, [facility] [address] [id number] [address] [place] [address], [place] [address] Oct, [facility] [address] [id number] [address] [place] [address], [place] [address] Oct, [facility] [address] [id number] [address] [place] [address], [place] [address] Oct, [facility] [address] [id number] [address] [place] [address], [place] [address] Aug, [facility] [address] [id number] [address] [place] [address], [place] [address] Aug, [facility] [address] [id number] [address] [place] [address], [place] [address] 18 Jun, 2012 [facility] [address] [id number] [facility] [place] [address] May, [facility] [address] [id number] [address] [place] [address], [place] [address] May, [facility] [address] [id number] [address] [place] [address], [place] [address] Apr, [facility] [address] [id number] [address] [place] [address], [place] [address] Apr, [facility] [address] [id number] [address] [place] [address], [place] [address] Apr, [facility] [address] [id number] [address] [place] [address], [place] [address] Mar, [facility] [address] [id number] [address] [place] [address], [place] [address] Mar, [facility] [address] [id number] [address] [place] [address], [place] [address] Mar, [facility] [address] [id number] [address] [place] [address], [place] [address] Mar, [facility] [address] [id number] [address] [place] [address], [place] [address] Mar, [facility] [address] [id number] [address] [place] [address], [place] [address] February, [facility] [address] [id number] [address] [place] [address], [place] [address] February, [facility] [address] [id number] [address] [place] [address], [place] [address] February, [facility] [address] [id number] [address] [place] [address], [place] [address] February, [facility] [address] [id number] [address] [place] [address], [place] [address] February, [facility] [address] [id number] [address] [place] [address], [place] [address] February, [facility] [address] [id number] [address] [place] [address], [place] [address] February, [facility] [address] [id number] [address] [place] [address], [place] [address] Jan, [facility] [address] [id number] [address] [place] [address], [place] [address] Jan, [facility] [address] [id number] [address] [place] [address], [place] [address] 17 Jan, 2012 [facility] [address] [id number] [address] [place] [address], [place] [address] Jan, [facility] [address] [id number] [address] [place] [address], [place] [address] Jan, [facility] [address] [id number] [address] [place] [address], [place] [address] Jan, [facility] [address] [id number] [address] [place] [address], [place] [address] 30 Dec, 2011 [facility] [address] [id number] [address] [place] [address], [place] [address] 24 Dec, 2011 [facility] [address] [id number] [address] [place] [address], [place] [address] Dec, [facility] [address] [id number] [address] [place] [address], [place] [address] Dec, [facility] [address] [id number] [address] [place] [address], [place] [address] Dec, [facility] [address] [id number] [address] [place] [address], [place] [address] Nov, [facility] [address] [id number] [address] [place] [address], [place] [address] Nov, [facility] [address] [id number] [address] [place] [address], [place] [address] Nov, [facility] [address] [id number] [address] [place] [address], [place] [address] 14 Nov, 2011 [facility] [address] [id number] [address] [place] [address], [place] [address] 10 Nov, 2011 [facility] [address] [id number] [address] [place] [address], [place] [address] Nov, [facility] [address] [id number] [address] [place] [address], [place] [address] Oct, [facility] [address] [id number] [address] [place] [address], [place] [address] Oct, [facility] [address] [id number] [address] [place] [address], [place] [address] Oct, [facility] [address] [id number] [address] [place] [address], [place] [address] Oct, [facility] [address] [id number] [address] [place] [address], [place] [address] Oct, [facility] [address] [id number] [address] [place] [address], [place] [address] Sep, [facility] [address] [id number] [address] [place] [address], [place] [address] Sep, [facility] [address] [id number] [address] [place] [address], [place] [address] Sep, [facility] [address] [id number] [address] [place] [address], [place] [address] 14 Sep, 2011 [facility] [address] [id number] [address] [place] [address], [place] [address] 14 Sep, 2011 [facility] [address] [id number] [address] [place] [address], [place] [address] 13 Sep, 2011 [facility] [address] [id number] [address] [place] [address], [place] [address] 12 Sep, 2011 [facility] [address] [id number] [address] [place] [address], [place] [address] Sep, [facility] [address] [id number] [address] [place] [address], [place] [address] Sep, [facility] [address] [id number] [address] [place] [address], [place] [address] Aug, [facility] [address] [id number] [address] [place] [address], [place] [address] Aug, [facility] [address] [id number] [address] [place] [address], [place] [address] Aug, [facility] [address] [id number] [address] [place] [address], [place] [address] Aug, [facility] [address] [id number] [address] [place] [address], [place] [address] Aug, [facility] [address] [id number] [address] [place] [address], [place] [address] Aug, [facility] [address] [id number] [address] [place] [address], [place] [address] Aug, [facility] [address] [id number] [address] [place] [address], [place] [address] Aug, [facility] [address] [id number] [address] [place] [address], [place] [address] Aug, [facility] [address] [id number] [address] [place] [address], [place] [address] Aug, [facility] [address] [id number] [address] [place] [address], [place] [address] Aug, [facility] [address] [id number] [address] [place] [address], [place] [address] Aug, [facility] [address] [id number] [address] [place] [address], [place] [address] Jul, [facility] [address] [id number] [address] [place] [address], [place] [address] Jul, [facility] [address] [id number] [address] [place] [address] Jul, [facility] [address] [id number] [address] [place] [address] Jul, [facility] [address] [id number] [address] [place] [address] Jul, [facility] [address] [id number] [address] [place] [address] Jul, [facility] [address] [id number] [address] [place] [address] Jul, [facility] [address] [id number] [address] [place] [address] Jul, [facility] [address] [id number] [address] [place] [address] Jul, [facility] [address] [id number] [address] [place] [address] Jul, [facility] [address] [id number] [address] [place] [address] Nov, [facility] [address] [id number] [address] [place] [address] Aug, [facility] [address] [id number] [address] [place] [address] Aug, [facility] [address] [id number] [address] [place] [id number] Aug, [facility] [address] [id number] [address] [place] [address] Aug, [facility] [address] [id number] [address] [place] [id number] Jul, IMMUNIZATIONS No Known Immunizations SOCIAL HISTORY Never Assessed [place]ASON FOR [place] [place] VITAL SIGNS MEDICATIONS Unknown [...] attempt by hanging 2015 Hospitalization History [facility] 01/30/2018-02/10/20 08 Hospitalization History [facility] 05/04/18-
--- OUTSIDE RECORDS SUMMARY | 2020-04-04 02:16 | XMS REPORT ---
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 Active 21835488 Problem Generalized anxiety disorder 300.02 A ctive 71746910 Problem Obsessive-compulsive disorders 300.3 Active 625002821 Problem Catatonic schizophrenia, 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 886342949 Problem Disorganized schizophrenia, 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 39528993 Problem Paranoid schizophrenia F20.0 Active 07973459 Problem Borderline personality disorder F60.3 Active 53000766 Problem Paranoid schizophrenia, unspecified condition 295.30 Active 00840627 Problem Schizoaffective disorder, depressive type F25.1 Active 29553182 Problem Bipolar disorder, unspecified 296.80 Active 07239338 Problem Schizoaffective disorder, unspecified F25.9 Active 07447242 Problem Attention deficit hyperactivity disorder (ADHD), inattentive type, 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 85374329 Problem Posttraumatic stress disorder F43.10 Active 69815319 Problem High risk medication use Z79.899 Activ e [id number] ALLERGIES No Information ENCOUNTERS Encounter Location Date Diagnosis [facility] [address] [facility] [id number] [address] [place] [phone] Jan, [facility] [address] [facility] [id number] [address] [place] [address] Dec, Paranoid schizophrenia F20.0 ; Posttraumatic stress disorder F43.10 ; Attention deficit hyperactivity disorder (ADHD), inattentive type, 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 and Borderline personality disorder F60.3 [facility] [address] [facility] [id number] [address] [place] [address] Dec, Paranoid schizophrenia F20.0 ; Posttraumatic stress disorder F43.10 ; Attention deficit hyperactivity disorder (ADHD), inattentive type, 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 and Borderline personality disorder F60.3 [facility] [address] [place] [id number] [address] [place] [phone] Oct, Paranoid schizophrenia F20.0 ; Posttraumatic stress disorder F43.10 ; Attention deficit hyperactivity disorder (ADHD), inattentive type, 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 and Borderline personality disorder F60.3 [facility] [address] [place] [id number] [address] [place] [phone] Oct, Paranoid schizophrenia F20.0 ; Posttraumatic stress disorder F43.10 ; Attention deficit hyperactivity disorder (ADHD), inattentive type, 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 and Borderline personality disorder F60.3 [facility] [address] [place] [id number] [address] [place] [phone] Aug, [facility] [address] [place] [id number] [place] [phone] Aug, Paranoid schizophrenia F20.0 ; Posttraumatic stress disorder F43.10 ; Attention deficit hyperactivity disorder (ADHD), inattentive type, 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 and Borderline personality disorder F60.3 [facility] [address] [facility] [id number] [address] [place] [address] Jul, Dry skin dermatitis L85.3 [facility] [address] [facility] [id number] [address] [place] [phone] Jul, [facility] [address] [facility] [id number] [address] [place] [phone] Jul, Paranoid schizophrenia F20.0 [facility] [address] [facility] [id number] [address] [place] [phone] May, Paranoid schizophrenia F20.0 ; Posttraumatic stress disorder F43.10 ; Attention deficit hyperactivity disorder (ADHD), inattentive type, 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 and Borderline personality disorder F60.3 [facility] [address] [facility] [id number] [address] [place] [phone] May, [facility] [address] [id number] [address] [address] May, Paranoid schizophrenia F20.0 [facility] [address] [id number] [address] [place] [address], [place] [address] May, Paranoid schizophrenia F20.0 ; Posttraumatic stress disorder F43.10 ; Attention deficit hyperactivity disorder (ADHD), inattentive type, 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 and Borderline personality disorder F60.3 [facility] [address] [id number] [facility] [place] [address] Apr, [facility] [address] [id number] [address] [place] [address], [place] [address] Apr, Paranoid schizophrenia F20.0 ; Posttraumatic stress disorder F43.10 ; Attention deficit hyperactivity disorder (ADHD), inattentive type, 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 and Borderline personality disorder F60.3 [facility] [address] [id number] [address] [place] [phone] Apr, [facility] [address] [id number] [address] [place] [phone] Apr, Schizoaffective disorder, de pressive type F25.1 and Borderline personality disorder F60.3 [facility] [address] [id number] [address] [place] [address] Apr, Paranoid schizophrenia F20.0 ; Posttraumatic stress disorder F43.10 ; Attention deficit hyperactivity disorder (ADHD), inattentive type, 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 and Borderline personality disorder F60.3 [facility] [address] [id number] [address] [place] [phone] Apr, [facility] [address] [id number] [address] [place] [address] Apr, Paranoid schizophrenia F20.0 ; Posttraumatic stress disorder F43.10 ; Attention deficit hyperactivity disorder (ADHD), inattentive type, 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 and Borderline personality disorder F60.3 [facility] [address] [id number] [address] [place] [address] Apr, [facility] [address] [id number] [address] [place] [phone] Mar, Paranoid schizophrenia F20.0 [facility] [address] [id number] [address] [place] [address] Mar, [facility] [address] [id number] [address] [place] [phone] Mar, Paranoid schizophrenia F20.0 ; Posttraumatic stress disorder F43.10 ; Attention deficit hyperactivity disorder (ADHD), inattentive type, 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 and Borderline personality disorder F60.3 [facility] [address] [id number] [address] [place] [address] February, Paranoid schizophrenia F20.0 [facility] [address] [id number] [address] [place] [address] February, Paranoid schizophrenia F20.0 ; Posttraumatic stress disorder F43.10 ; Attention deficit hyperactivity disorder (ADHD), inattentive type, 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 and Borderline personality disorder F60.3 [facility] [address] [id number] [address] [place] [phone] February, Paranoid schizophrenia F20.0 ; Posttraumatic stress disorder F43.10 ; Attention deficit hyperactivity disorder (ADHD), inattentive type, 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 and Borderline personality disorder F60.3 [facility] [address] [id number] [address] [place] [address] February, [facility] [address] [id number] [address] [place] [address] February, Paranoid schizophrenia F20.0 [facility] [address] [id number] [address] [place] [phone] February, Paranoid schizophrenia F20.0 [facility] [address] [id number] [address] [place] [phone] February, Paranoid schizophrenia F20.0 ; Posttraumatic stress disorder F43.10 ; Attention deficit hyperactivity disorder (ADHD), inattentive type, 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 and Borderline personality disorder F60.3 [facility] [address] [id number] [address] [place] [address] Jan, Paranoid schizophrenia F20.0 ; Posttraumatic stress disorder F43.10 ; Attention deficit hyperactivity disorder (ADHD), inattentive type, 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 and Borderline personality disorder F60.3 [facility] [address] [id number] [address] [place] [phone] Jan, Paranoid schizophrenia F20.0 [facility] [address] [id number] [address] [place] [phone] Jan, Paranoid schizophrenia F20.0 [facility] [address] [facility] [id number] [address] [place] [phone] Jan, Paranoid schizophrenia F20.0 ; Posttraumatic stress disorder F43.10 ; Attention deficit hyperactivity disorder (ADHD), inattentive type, 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 and Borderline personality disorder F60.3 [facility] [address] [id number] [address] [place] [address] Dec, [facility] [address] [id number] [address] [place] [phone] Nov, Paranoid schizophrenia F20.0 ; Posttraumatic stress disorder F43.10 ; Attention deficit hyperactivity disorder (ADHD), inattentive type, 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 and Borderline personality disorder F60.3 [facility] [address] [id number] [address] [place] [phone] Nov, [facility] [address] [id number] [address] [place] [address] Oct, Paranoid schizophrenia F20.0 [facility] [address] [facility] [id number] [address] [place] [address] Oct, Paranoid schizophrenia F20.0 ; Posttraumatic stress disorder F43.10 ; Attention deficit hyperactivity disorder (ADHD), inattentive type, 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 ; Borderline personality disorder F60.3 and Other intermediate (current) drug therapy Z79.899 [facility] [address] [id number] [address] [place] [address] Oct, [facility] [address] [facility] [id number] [address] [place] [phone] Oct, [facility] [address] [id number] [address] [place] [address] Sep, [facility] [address] [id number] [address] [place] [phone] Sep, Paranoid schizophrenia F20.0 ; Posttraumatic stress disorder F43.10 ; Attention deficit hyperactivity disorder (ADHD), inattentive type, 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 and Borderline personality disorder F60.3 [facility] [address] [facility] [id number] [address] [place] [address] Sep, Paranoid schizophrenia F20.0 [facility] [address] [id number] [address] [place] [phone] Aug, Paranoid schizophrenia F20.0 ; Posttraumatic stress disorder F43.10 ; Attention deficit hyperactivity disorder (ADHD), inattentive type, 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 and Borderline personality disorder F60.3 [facility] [address] [facility] [id number] [address] [place] [phone] Aug, Paranoid schizophrenia F20.0 ; Posttraumatic stress disorder F43.10 ; Attention deficit hyperactivity disorder (ADHD), inattentive type, 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 and Borderline personality disorder F60.3 [facility] [address] [id number] [address] [place] [phone] Aug, [facility] [address] [facility] [id number] [address] [place] [address] Jul, Paranoid schizophrenia F20.0 ; Posttraumatic stress disorder F43.10 ; Attention deficit hyperactivity disorder (ADHD), inattentive type, 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 and Borderline personality disorder F60.3 [facility] [address] [id number] [address] [place] [address] Jul, Paranoid schizophrenia F20.0 [facility] [address] [id number] [address] [place] [phone] Jul, Paranoid schizophrenia F20.0 ; Posttraumatic stress disorder F43.10 ; Attention deficit hyperactivity disorder (ADHD), inattentive type, 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 and Borderline personality disorder F60.3 [facility] [address] [id number] [address] [place] [phone] Jun, Paranoid schizophrenia F20.0 ; Posttraumatic stress disorder F43.10 ; Attention deficit hyperactivity disorder (ADHD), inattentive type, 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 and Borderline personality disorder F60.3 [facility] [address] [id number] [address] [place] [address] May, Other intermediate (current) dr ug therapy Z79.899 [facility] [address] [id number] [address] [place] [phone] May, [facility] [address] [id number] [address] [place] [phone] May, [facility] [address] [facility] [id number] [address] [place] [phone] May, Attention deficit hyperactiv ity disorder (ADHD), inattentive type, mild F90.0 [facility] [address] [facility] [id number] [address] [place] [phone] May, [facility] [address] [id number] [address] [place] [id number] May, Attention deficit hyperactiv ity disorder (ADHD), inattentive type, mild F90.0 [facility] [address] [id number] [address] [place] [phone] May, Paranoid schizophrenia F20.0 ; Posttraumatic stress disorder F43.10 ; Attention deficit hyperactivity disorder (ADHD), inattentive type, 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 and Other intermediate (current) drug therapy Z79.899 [facility] [address] [id number] [address] [place] [phone] Apr, Paranoid schizophrenia F20.0 [facility] [address] [id number] [address] [place] [phone] Apr, Paranoid schizophrenia F20.0 ; Posttraumatic stress disorder F43.10 and Attention deficit hyperactivity disorder (ADHD), inattentive type, 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 [facility] [address] [id number] [address] [place] [phone] February, [facility] [address] [id number] [address] [place] [phone] February, Paranoid schizophrenia F20.0 ; Posttraumatic stress disorder F43.10 and Attention deficit hyperactivity disorder (ADHD), inattentive type, 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 [facility] [address] [id number] [address] [place] [phone] February, Paranoid schizophrenia F20.0 ; Posttraumatic stress disorder F43.10 and Attention deficit hyperactivity disorder (ADHD), inattentive type, 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 [facility] [address] [id number] [address] [place] [phone] Jan, Paranoid schizophrenia F20.0 ; Posttraumatic stress disorder F43.10 and Attention deficit hyperactivity disorder (ADHD), inattentive type, 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 [facility] [address] [id number] [address] [place] [id number] Dec, Dental examination Z01.20 [facility] [address] [id number] [address] [place] [id number] Nov, Dental examination Z01.20 [facility] [address] [id number] [address] [place] [address] [id number] Nov, Dental examination Z01.20 [facility] [address] [id number] [address] [place] [address] [id number] Nov, Dental caries K02.9 [facility] [address] [id number] [address] [place] [phone] Nov, High risk medication use Z79 .899 [facility] [address] [id number] [address] [place] [id number] Nov, Paranoid schizophrenia F20.0 ; Posttraumatic stress disorder F43.10 ; Attention deficit hyperactivity disorder (ADHD), inattentive type, 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 and Borderline personality disorder in adult F60.3 [facility] [address] [id number] [address] [place] [id number] Oct, Dental caries K02.9 [facility] [address] [id number] [address] [place] [phone] Sep, Paranoid schizophrenia F20.0 ; Posttraumatic stress disorder F43.10 and Attention deficit hyperactivity disorder (ADHD), inattentive type, 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 [facility] [address] [id number] [address] [place] [phone] Aug, Paranoid schizophrenia F20.0 ; Posttraumatic stress disorder F43.10 and Attention deficit hyperactivity disorder (ADHD), inattentive type, 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 [facility] [address] [id number] [address] [place] [phone] Aug, Strep throat J02.0 and Cough R05 [facility] [address] [id number] [address] [place] [phone] Aug, [facility] [address] [id number] [address] [place] [phone] 24 Jul, 2016 Paranoid schizophrenia F20.0 ; Posttraumatic stress disorder F43.10 and Attention deficit hyperactivity disorder (ADHD), inattentive type, 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 [facility] [address] [id number] [address] [place] [phone] Jul, [facility] [address] [id number] [address] [place] [phone] Jun, Paranoid schizophrenia F20.0 ; Posttraumatic stress disorder F43.10 and Attention deficit hyperactivity disorder (ADHD), inattentive type, 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 [facility] [address] [id number] [address] [place] [address] [id number] Jun, Dental examination Z01.20 [facility] [address] [id number] [address] [place] [phone] Jun, [facility] [address] [id number] [address] [place] [phone] May, Paranoid schizophrenia F20.0 [facility] [address] [id number] [address] [place] [phone] May, Paranoid schizophrenia F20.0 ; Posttraumatic stress disorder F43.10 and Attention deficit hyperactivity disorder (ADHD), inattentive type, 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 [facility] [address] [id number] [address] [place] [address] May, [facility] [address] [id number] [address] [place] [phone] May, Paranoid schizophrenia F20.0 [facility] [address] [id number] [address] [place] [phone] May, [facility] [address] [id number] [address] [place] [phone] May, Paranoid schizophrenia F20.0 [facility] [address] [id number] [address] [place] [phone] May, Schizoaffective disorder, un specified F25.9 [facility] [address] [id number] [address] [place] [phone] May, Schizoaffective disorder, un specified F25.9 [facility] [address] [id number] [address] [place] [phone] May, [facility] [address] [id number] [address] [place] [phone] May, Paranoid schizophrenia F20.0 [facility] [address] [id number] [address] [place] [phone] May, Paranoid schizophrenia F20.0 ; Posttraumatic stress disorder F43.10 and Attention deficit hyperactivity disorder (ADHD), inattentive type, 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 [facility] [address] [id number] [address] [place] [address], [place] [address] Mar, [facility] [address] [id number] [facility] [place] [address] Mar, Paranoid schizophrenia F20.0 ; Posttraumatic stress disorder F43.10 and Attention deficit hyperactivity disorder (ADHD), inattentive type, 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 [facility] [address] [id number] [address] [place] [address], [place] [address] Mar, Paranoid schizophrenia F20.0 [facility] [address] [id number] [address] [place] [address], [place] [address] Mar, Paranoid schizophrenia F20.0 ; Attention deficit hyperactivity disorder (ADHD), inattentive type, 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 and Posttraumatic stress disorder F43.10 [facility] [address] [id number] [address] [place] [phone] Mar, [facility] [address] [id number] [address] [place] [address], [place] [address] Mar, Paranoid schizophrenia F20.0 ; Posttraumatic stress disorder F43.10 and Attention deficit hyperactivity disorder (ADHD), inattentive type, 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 [facility] [address] [id number] [address] [place] [address], [place] [address] February, [facility] [address] [id number] [address] [place] [phone] February, [facility] [address] [id number] [address] [place] [address], [place] [address] February, [facility] [address] [id number] [address] [place] [phone] February, [facility] [address] [id number] [address] [place] [address], [place] [phone] Jan, Paranoid schizophrenia F20.0 [facility] [address] [id number] [address] [place] [address] [id number] Jan, Dental examination Z01.20 [facility] [address] [id number] [address] [place] [address] [id number] Jan, Dental caries K02.9 [facility] [address] [id number] [address] [place] [address] [id number] Jan, Dental examination Z01.20 [facility] [address] [id number] [address] [place] [address] [id number] Dec, Encounter for dental examina tion Z01.20 [facility] [address] [id number] [address] [place] [phone] Dec, Paranoid schizophrenia F20.0 [facility] [address] [id number] [address] [place] [address] [id number] Dec, Dental examination Z01.20 [facility] [address] [id number] [address] [place] [phone] Dec, [facility] [address] [id number] [address] [place] [phone] Dec, Paranoid schizophrenia F20.0 ; Posttraumatic stress disorder F43.10 and Attention deficit hyperactivity disorder (ADHD), inattentive type, 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 [facility] [address] [id number] [address] [place] [phone] Nov, Schizoaffective disorder, un specified F25.9 [facility] [address] [id number] [address] [place] [phone] Oct, Paranoid schizophrenia F20.0 [facility] [address] [id number] [address] [place] [phone] Oct, [facility] [address] [id number] [address] [place] [phone] Sep, Paranoid schizophrenia F20.0 ; Posttraumatic stress disorder F43.10 and Attention deficit hyperactivity disorder (ADHD), inattentive type, 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 [facility] [address] [id number] [address] [place] [phone] Sep, [facility] [address] [facility] [id number] [address] [place], [place] [address] Sep, Paranoid schizophrenia F20.0 ; Posttraumatic stress disorder F43.10 and Attention deficit hyperactivity disorder (ADHD), inattentive type, 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 [facility] [address] [facility] [id number] [address] [place] [phone] Aug, Paranoid schizophrenia F20.0 [facility] [address] [facility] [id number] [address] [place] [phone] Aug, [facility] [address] [facility] [id number] [address] [place] [phone] Aug, Posttraumatic stress disorde r F43.10 ; Paranoid schizophrenia F20.0 and Attention deficit hyperactivity disorder (ADHD), inattentive type, 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 [facility] [address] [facility] [id number] [address] [place] [phone] Jul, Bipolar disorder, unspecifie d F31.9 [facility] [address] [facility] [facility] [id number] [address] [place] [id number] Jul, [facility] [address] [facility] [id number] [address] [place] [id number] Jun, [facility] [address] [facility] [id number] [address] [place] [id number] Jun, Schizoaffective disorder, ch ronic 295.72 ; Posttraumatic stress disorder 309.81 and Attention deficit disorder of childhood without mention of hyperactivity 314.00 [facility] [address] [facility] [id number] [address] [place] [phone] May, [facility] [address] [facility] [id number] [address] [place] [id number] May, [facility] [address] [facility] [id number] [address] [place] [id number] May, Schizoaffective disorder, ch ronic 295.72 ; Posttraumatic stress disorder 309.81 ; Attention deficit disorder of childhood without mention of hyperactivity 314.00 and Bipolar disorder, unspecified 296.80 [facility] [address] [facility] [id number] [address] [place] [phone] Apr, Schizoaffective disorder, ch ronic 295.72 [facility] [address] [facility] [id number] [address] [place] [id number] Apr, [facility] [address] [id number] [address] [place] [phone] Apr, Schizoaffective disorder, ch ronic 295.72 ; Posttraumatic stress disorder 309.81 and Attention deficit disorder of childhood without mention of hyperactivity 314.00 [facility] [address] [facility] [id number] [address] [place] [phone] Mar, Disorganized schizophrenia, 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 [facility] [address] [facility] [id number] [address] [place] [id number] Mar, [facility] [address] [facility] [id number] [address] [place] [id number] Mar, [facility] [address] [facility] [id number] [address] [place] [id number] Mar, [facility] [address] [facility] [id number] [address] [place] [phone] Mar, [facility] [address] [facility] [id number] [address] [place] [id number] February, Schizoaffective disorder, ch ronic 295.72 [facility] [address] [facility] [id number] [address] [place] [id number] February, [facility] [address] [facility] [id number] [address] [place] [phone] February, Attention 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 ; Posttraumatic stress disorder 309.81 and Schizoaffective disorder, chronic 295.72 [facility] [address] [id number] [address] [place] [address], [place] [address] 29 Jan, 2015 [facility] [address] [id number] [address] [place] [address], [place] [address] 14 Jan, 2015 [facility] [address] [id number] [address] [place] [address], [place] [address] Jan, [facility] [address] [id number] [address] [place] [address], [place] [address] Dec, [facility] [address] [id number] [address] [place] [address], [place] [address] Dec, [facility] [address] [id number] [address] [place] [address], [place] [address] Dec, [facility] [address] [id number] [address] [place] [address], [place] [address] Dec, [facility] [address] [id number] [address] [place] [address], [place] [address] Dec, [facility] [address] [id number] [address] [place] [address], [place] [address] Dec, [facility] [address] [id number] [address] [place] [address], [place] [address] Dec, [facility] [address] [id number] [address] [place] [address], [place] [address] Dec, [facility] [place] [facility] [address] [id number] [address] [place] [address], [place] [address] Nov, [facility] [address] [id number] [address] [place] [address], [place] [address] Nov, [facility] [place] [facility] [address] [id number] [address] [place] [address], [place] [address] Nov, [facility] [address] [id number] [address] [place] [address], [place] [address] Nov, [facility] [place] [facility] [address] [id number] [address] [place] [address], [place] [address] Nov, [facility] [address] [id number] [address] [place] [address], [place] [address] Nov, [facility] [address] [id number] [address] [place] [address], [place] [address] Nov, [facility] [address] [id number] [address] [place] [address], [place] [address] Nov, [facility] [address] [id number] [address] [place] [address], [place] [address] Nov, [facility] [address] [id number] [address] [place] [address], [place] [address] Nov, [facility] [address] [id number] [address] [place] [address], [place] [address] Oct, [facility] [address] [id number] [address] [place] [address], [place] [address] Oct, [facility] [address] [id number] [address] [place] [address], [place] [address] Oct, [facility] [address] [id number] [address] [place] [address], [place] [address] Oct, [facility] [address] [id number] [address] [place] [address], [place] [address] Oct, [facility] [address] [id number] [address] [place] [address], [place] [address] Oct, [facility] [address] [id number] [address] [place] [address], [place] [address] Oct, [facility] [address] [id number] [address] [place] [address], [place] [address] Sep, [facility] [address] [id number] [address] [place] [address], [place] [address] Sep, [facility] [address] [id number] [address] [place] [address], [place] [address] Sep, [facility] [address] [id number] [address] [place] [address], [place] [address] 15 Sep, 2014 [facility] [place] [facility] [address] [id number] [address] [place] [address], [place] [address] Aug, [facility] [place] [facility] [address] [id number] [address] [place] [address], [place] [address] Aug, [facility] [place] [facility] [address] [id number] [address] [place] [address], [place] [address] Aug, [facility] [place] [facility] [address] [id number] [address] [place] [address], [place] [address] Aug, [facility] [place] [address] [id number] [address] [place] [address], [place] [address] Aug, [facility] [place] [facility] [address] [id number] [address] [place] [address], [place] [address] Aug, [facility] [place] [facility] [address] [id number] [address] [place] [address], [place] [address] Jul, [facility] [place] [facility] [address] [id number] [address] [place] [address], [place] [address] 29 Jul, 2014 [facility] [place] [address] [id number] [address] [place] [address], [place] [address] 24 Jul, 2014 [facility] [place] [address] [id number] [address] [place] [address], [place] [address] 24 Jul, 2014 [facility] [place] [address] [id number] [address] [place] [address], [place] [address] 15 Jul, 2014 [facility] [place] [address] [id number] [address] [place] [address], [place] [address] 15 Jul, 2014 [facility] [place] [address] [id number] [address] [place] [address], [place] [address] 27 Jun, 2014 [facility] [place] [address] [id number] [address] [place] [address], [place] [address] 27 Jun, 2014 [facility] [address] [id number] [address] [place] [address], [place] [address] Jun, 2013 [facility] [place] [address] [id number] [facility] [place] [address] 26 Jun, 2013 [facility] [place] [address] [id number] [facility] [place] [address] Jun, 2013 [facility] [address] [id number] [address] [place] [address], [place] [address] Jun, 2013 [facility] [address] [id number] [address] [place] [address], [place] [address] 16 Jun, 2013 [facility] [address] [id number] [address] [place] [address], [place] [address] 16 Jun, 2013 [facility] [address] [id number] [address] [place] [address], [place] [address] Jun, 2013 [facility] [address] [id number] [address] [place] [address], [place] [address] Jun, 2013 [facility] [address] [id number] [address] [place] [address], [place] [address] Jun, [facility] [address] [id number] [address] [place] [address], [place] [address] May, [facility] [address] [id number] [address] [place] [address], [place] [address] May, [facility] [address] [id number] [address] [place] [address], [place] [address] May, [facility] [address] [id number] [address] [place] [address], [place] [address] May, [facility] [address] [id number] [address] [place] [address], [place] [address] May, [facility] [place] [address] [id number] [address] [place] [address], [place] [address] May, [facility] [place] [address] [id number] [address] [place] [address], [place] [address] May, [facility] [place] [facility] [address] [id number] [address] [place] [address], [place] [address] May, [facility] [address] [id number] [address] [place] [address], [place] [address] May, [facility] [address] [id number] [address] [place] [address], [place] [address] May, [facility] [address] [id number] [address] [place] [address], [place] [address] Apr, [facility] [address] [id number] [address] [place] [address], [place] [address] Apr, [facility] [address] [id number] [address] [place] [address], [place] [address] Apr, [facility] [address] [id number] [address] [place] [address], [place] [address] Apr, [facility] [address] [id number] [address] [place] [address], [place] [address] Apr, [facility] [address] [id number] [address] [place] [address], [place] [address] Apr, [facility] [address] [id number] [address] [place] [address], [place] [address] Apr, [facility] [address] [id number] [address] [place] [address], [place] [address] Apr, [facility] [address] [id number] [address] [place] [address], [place] [address] Apr, [facility] [address] [id number] [address] [place] [address], [place] [address] Apr, [facility] [address] [id number] [address] [place] [address], [place] [address] Mar, [facility] [address] [id number] [address] [place] [address], [place] [address] Mar, [facility] [address] [id number] [address] [place] [address], [place] [address] Mar, [facility] [address] [id number] [address] [place] [address], [place] [address] Mar, [facility] [address] [id number] [address] [place] [address], [place] [address] Mar, [facility] [address] [id number] [address] [place] [address], [place] [address] Mar, [facility] [address] [id number] [address] [place] [address], [place] [address] Mar, [facility] [address] [id number] [address] [place] [address], [place] [address] Mar, [facility] [address] [id number] [address] [place] [address], [place] [address] Mar, [facility] [address] [id number] [address] [place] [address], [place] [address] Mar, [facility] [address] [id number] [address] [place] [address], [place] [address] Mar, [facility] [address] [id number] [address] [place] [address], [place] [address] Mar, [facility] [address] [id number] [address] [place] [address], [place] [address] Mar, [facility] [address] [id number] [address] [place] [address], [place] [address] Mar, [facility] [address] [id number] [address] [place] [address], [place] [address] Mar, [facility] [address] [id number] [address] [place] [address], [place] [address] Mar, [facility] [address] [id number] [address] [place] [address], [place] [address] Mar, [facility] [address] [id number] [address] [place] [address], [place] [address] 09 Mar, 2014 [facility] [address] [id number] [address] [place] [address], [place] [address] Mar, [facility] [address] [id number] [facility] [place] [address] Mar, [facility] [address] [id number] [address] [place] [address], [place] [address] February, [facility] [address] [id number] [address] [place] [address], [place] [address] February, [facility] [address] [id number] [address] [place] [address], [place] [address] February, [facility] [address] [id number] [address] [place] [address], [place] [address] February, [facility] [address] [id number] [address] [place] [address], [place] [address] February, [facility] [address] [id number] [address] [place] [address], [place] [address] February, [facility] [address] [id number] [address] [place] [address], [place] [address] February, [facility] [address] [id number] [address] [place] [address], [place] [address] February, [facility] [address] [id number] [address] [place] [address], [place] [address] February, [facility] [address] [id number] [address] [place] [address], [place] [address] February, [facility] [address] [id number] [address] [place] [address], [place] [address] February, [facility] [address] [id number] [address] [place] [address], [place] [address] February, [facility] [address] [id number] [address] [place] [address], [place] [address] February, [facility] [address] [id number] [address] [place] [address], [place] [address] February, [facility] [address] [id number] [address] [place] [address], [place] [address] February, [facility] [address] [id number] [address] [place] [address], [place] [address] February, [facility] [address] [id number] [address] [place] [address], [place] [address] February, [facility] [address] [id number] [address] [place] [address], [place] [address] February, [facility] [address] [id number] [address] [place] [address], [place] [address] February, [facility] [address] [id number] [address] [place] [address], [place] [address] February, [facility] [address] [id number] [address] [place] [address], [place] [address] February, [facility] [address] [id number] [address] [place] [address], [place] [address] Jan, [facility] [address] [id number] [address] [place] [address], [place] [address] Jan, [facility] [address] [id number] [address] [place] [address], [place] [address] Jan, [facility] [address] [id number] [address] [place] [address], [place] [address] Jan, [facility] [address] [id number] [address] [place] [address], [place] [address] Jan, [facility] [address] [id number] [address] [place] [address], [place] [address] Jan, [facility] [address] [id number] [address] [place] [address], [place] [address] Jan, [facility] [address] [id number] [address] [place] [address], [place] [address] Jan, [facility] [address] [id number] [address] [place] [address], [place] [address] Dec, [facility] [address] [id number] [facility] [place] [address] 20 Dec, 2013 [facility] [address] [id number] [facility] [place] [address] 20 Dec, 2013 [facility] [address] [id number] [facility] [place] [address] 19 Dec, 2013 [facility] [place] [address] [id number] [address] [place] [address], [place] [address] 19 Dec, 2013 [facility] [address] [id number] [address] [place] [address], [place] [address] 15 Dec, 2013 [facility] [place] [address] [id number] [address] [place] [address], [place] [address] 15 Dec, 2013 [facility] [address] [id number] [address] [place] [address], [place] [address] 11 Dec, 2013 [facility] [address] [id number] [address] [place] [address], [place] [address] 10 Dec, 2013 [facility] [place] [facility] [address] [id number] [address] [place] [address], [place] [address] 10 Dec, 2013 [facility] [address] [id number] [address] [place] [address], [place] [address] 18 Nov, 2013 [facility] [place] [facility] [address] [id number] [address] [place] [address], [place] [address] 17 Nov, 2013 [facility] [place] [facility] [address] [id number] [address] [place] [address], [place] [address] Nov, [facility] [address] [id number] [address] [place] [address], [place] [address] 05 Nov, 2013 [facility] [place] [facility] [address] [id number] [address] [place] [address], [place] [address] 05 Nov, 2013 [facility] [place] [facility] [address] [id number] [address] [place] [address], [place] [address] Oct, [facility] [place] [facility] [address] [id number] [address] [place] [address] Oct, [facility] [address] [id number] [address] [place] [address], [place] [address] Oct, [facility] [address] [id number] [address] [place] [address], [place] [address] Sep, [facility] [address] [id number] [address] [place] [address], [place] [address] Sep, [facility] [address] [id number] [address] [place] [address], [place] [address] Sep, [facility] [address] [id number] [address] [place] [address], [place] [address] Sep, [facility] [address] [id number] [address] [place] [address], [place] [address] Aug, [facility] [address] [id number] [address] [place] [address], [place] [address] Aug, [facility] [address] [id number] [address] [place] [address], [place] [address] Jul, [facility] [address] [id number] [address] [place] [address], [place] [address] Jul, [facility] [address] [id number] [address] [place] [address], [place] [address] Jul, [facility] [address] [id number] [address] [place] [address], [place] [address] Jul, [facility] [address] [id number] [address] [place] [address], [place] [address] Jul, [facility] [address] [id number] [address] [place] [address], [place] [address] Jun, [facility] [address] [id number] [address] [place] [address], [place] [address] Jun, [facility] [address] [id number] [address] [place] [address], [place] [address] 19 Jun, 2013 [facility] [place] [facility] [address] [id number] [address] [place] [address], [place] [address] 18 Jun, 2013 [facility] [address] [id number] [address] [place] [address], [place] [address] 16 Jun, 2013 [facility] [address] [id number] [address] [place] [address], [place] [address] 12 Jun, 2013 [facility] [address] [id number] [address] [place] [address], [place] [address] 11 Jun, 2013 [facility] [address] [id number] [address] [place] [address], [place] [address] 30 May, 2013 [facility] [address] [id number] [address] [place] [address], [place] [address] May, [facility] [address] [id number] [address] [place] [address], [place] [address] Apr, [facility] [address] [id number] [address] [place] [address], [place] [address] Apr, [facility] [address] [id number] [address] [place] [address], [place] [address] Apr, [facility] [address] [id number] [address] [place] [address], [place] [address] Mar, [facility] [address] [id number] [address] [place] [address], [place] [address] Mar, [facility] [address] [id number] [address] [place] [address], [place] [address] February, [facility] [address] [id number] [address] [place] [address], [place] [address] February, [facility] [address] [id number] [address] [place] [address], [place] [address] February, [facility] [address] [id number] [address] [place] [address], [place] [address] February, [facility] [address] [id number] [address] [place] [address], [place] [address] 19 Jan, 2013 [facility] [address] [id number] [address] [place] [address], [place] [address] 17 Jan, 2013 [facility] [address] [id number] [address] [place] [address], [place] [address] 16 Jan, 2013 [facility] [address] [id number] [address] [place] [address], [place] [address] 29 Dec, 2012 [facility] [address] [id number] [address] [place] [address], [place] [address] Dec, [facility] [address] [id number] [address] [place] [address], [place] [address] Dec, [facility] [address] [id number] [address] [place] [address], [place] [address] 08 Dec, 2012 [facility] [facility] [address] [id number] [address] [place] [address], [place] [address] Nov, [facility] [address] [id number] [address] [place] [address], [place] [address] Nov, [facility] [address] [id number] [address] [place] [address], [place] [address] Oct, [facility] [address] [id number] [address] [place] [address], [place] [address] Oct, [facility] [address] [id number] [address] [place] [address], [place] [address] Oct, [facility] [address] [id number] [address] [place] [address], [place] [address] Oct, [facility] [address] [id number] [address] [place] [address], [place] [address] Aug, [facility] [address] [id number] [address] [place] [address], [place] [address] Aug, [facility] [address] [id number] [address] [place] [address], [place] [address] 18 Jun, 2012 [facility] [address] [id number] [facility] [place] [address] May, [facility] [address] [id number] [address] [place] [address], [place] [address] May, [facility] [address] [id number] [address] [place] [address], [place] [address] Apr, [facility] [address] [id number] [address] [place] [address], [place] [address] Apr, [facility] [address] [id number] [address] [place] [address], [place] [address] Apr, [facility] [address] [id number] [address] [place] [address], [place] [address] Mar, [facility] [address] [id number] [address] [place] [address], [place] [address] Mar, [facility] [address] [id number] [address] [place] [address], [place] [address] Mar, [facility] [address] [id number] [address] [place] [address], [place] [address] Mar, [facility] [address] [id number] [address] [place] [address], [place] [address] Mar, [facility] [address] [id number] [address] [place] [address], [place] [address] February, [facility] [address] [id number] [address] [place] [address], [place] [address] February, [facility] [address] [id number] [address] [place] [address], [place] [address] February, [facility] [address] [id number] [address] [place] [address], [place] [address] February, [facility] [address] [id number] [address] [place] [address], [place] [address] February, [facility] [address] [id number] [address] [place] [address], [place] [address] February, [facility] [address] [id number] [address] [place] [address], [place] [address] February, [facility] [address] [id number] [address] [place] [address], [place] [address] Jan, [facility] [address] [id number] [address] [place] [address], [place] [address] Jan, [facility] [address] [id number] [address] [place] [address], [place] [address] 17 Jan, 2012 [facility] [address] [id number] [address] [place] [address], [place] [address] Jan, [facility] [address] [id number] [address] [place] [address], [place] [address] Jan, [facility] [address] [id number] [address] [place] [address], [place] [address] Jan, [facility] [address] [id number] [address] [place] [address], [place] [address] 30 Dec, 2011 [facility] [address] [id number] [address] [place] [address], [place] [address] 24 Dec, 2011 [facility] [address] [id number] [address] [place] [address], [place] [address] Dec, [facility] [address] [id number] [address] [place] [address], [place] [address] Dec, [facility] [address] [id number] [address] [place] [address], [place] [address] Dec, [facility] [address] [id number] [address] [place] [address], [place] [address] Nov, [facility] [address] [id number] [address] [place] [address], [place] [address] Nov, [facility] [address] [id number] [address] [place] [address], [place] [address] Nov, [facility] [address] [id number] [address] [place] [address], [place] [address] 14 Nov, 2011 [facility] [address] [id number] [address] [place] [address], [place] [address] 10 Nov, 2011 [facility] [address] [id number] [address] [place] [address], [place] [address] Nov, [facility] [address] [id number] [address] [place] [address], [place] [address] Oct, [facility] [address] [id number] [address] [place] [address], [place] [address] Oct, [facility] [address] [id number] [address] [place] [address], [place] [address] Oct, [facility] [address] [id number] [address] [place] [address], [place] [address] Oct, [facility] [address] [id number] [address] [place] [address], [place] [address] Oct, [facility] [address] [id number] [address] [place] [address], [place] [address] Sep, [facility] [address] [id number] [address] [place] [address], [place] [address] Sep, [facility] [address] [id number] [address] [place] [address], [place] [address] Sep, [facility] [address] [id number] [address] [place] [address], [place] [address] 14 Sep, 2011 [facility] [address] [id number] [address] [place] [address], [place] [address] 14 Sep, 2011 [facility] [address] [id number] [address] [place] [address], [place] [address] 13 Sep, 2011 [facility] [address] [id number] [address] [place] [address], [place] [address] 12 Sep, 2011 [facility] [address] [id number] [address] [place] [address], [place] [address] Sep, [facility] [address] [id number] [address] [place] [address], [place] [address] Sep, [facility] [address] [id number] [address] [place] [address], [place] [address] Aug, [facility] [address] [id number] [address] [place] [address], [place] [address] Aug, [facility] [address] [id number] [address] [place] [address], [place] [address] Aug, [facility] [address] [id number] [address] [place] [address], [place] [address] Aug, [facility] [address] [id number] [address] [place] [address], [place] [address] Aug, [facility] [address] [id number] [address] [place] [address], [place] [address] Aug, [facility] [address] [id number] [address] [place] [address], [place] [address] Aug, [facility] [address] [id number] [address] [place] [address], [place] [address] Aug, [facility] [address] [id number] [address] [place] [address], [place] [address] Aug, [facility] [address] [id number] [address] [place] [address], [place] [address] Aug, [facility] [address] [id number] [address] [place] [address], [place] [address] Aug, [facility] [address] [id number] [address] [place] [address], [place] [address] Aug, [facility] [address] [id number] [address] [place] [address], [place] [address] Jul, [facility] [address] [id number] [address] [place] [address], [place] [address] Jul, [facility] [address] [id number] [address] [place] [id number] Jul, [facility] [address] [id number] [address] [place] [id number] Jul, [facility] [address] [id number] [address] [place] [id number] Jul, [facility] [address] [id number] [address] [place] [id number] Jul, [facility] [address] [id number] [address] [place] [id number] Jul, [facility] [address] [id number] [address] [place] [id number] Jul, [facility] [address] [id number] [address] [place] [id number] Jul, [facility] [address] [id number] [address] [place] [id number] Jul, [facility] [address] [id number] [address] [place] [id number] Nov, [facility] [address] [id number] [address] [place] [id number] Aug, [facility] [address] [id number] [address] [place] [id number] Aug, [facility] [address] [id number] [address] [place] [id number] Aug, [facility] [address] [id number] [address] [place] [id number] Aug, [facility] [address] [id number] [address] [place] [id number] Jul, IMMUNIZATIONS No Known Immunizations SOCIAL HISTORY Never Assessed REASON FOR VISIT EMR[place] [place] OF CARE VITAL SIGNS MEDICATIONS Unknown [...]
--- OUTSIDE RECORDS SUMMARY | 2020-04-04 02:16 | XMS REPORT ---
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 Active 28005654 Problem Generalized anxiety disorder 300.02 A ctive 44831675 Problem Obsessive-compulsive disorders 300.3 Active 234716257 Problem Catatonic schizophrenia, 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 351420183 Problem Disorganized schizophrenia, 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 80196962 Problem Paranoid schizophrenia F20.0 Active 55391871 Problem Borderline personality disorder F60.3 Active 92226644 Problem Paranoid schizophrenia, unspecified condition 295.30 Active 40444129 Problem Schizoaffective disorder, depressive type F25.1 Active 86777102 Problem Bipolar disorder, unspecified 296.80 Active 02276370 Problem Schizoaffective disorder, unspecified F25.9 Active 52894653 Problem Attention deficit hyperactivity disorder (ADHD), inattentive type, 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 86071610 Problem Posttraumatic stress disorder F43.10 Active 85642759 Problem High risk medication use Z79.899 Activ e [id number] ALLERGIES No Information ENCOUNTERS Encounter Location Date Diagnosis [facility] [address] [facility] [id number] [address] [place] [phone] Jan, [facility] [address] [facility] [id number] [address] [place] [address] Dec, Paranoid schizophrenia F20.0 ; Posttraumatic stress disorder F43.10 ; Attention deficit hyperactivity disorder (ADHD), inattentive type, 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 and Borderline personality disorder F60.3 [facility] [address] [facility] [id number] [address] [place] [address] Dec, Paranoid schizophrenia F20.0 ; Posttraumatic stress disorder F43.10 ; Attention deficit hyperactivity disorder (ADHD), inattentive type, 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 and Borderline personality disorder F60.3 [facility] [address] [place] [id number] [address] [place] [address] Oct, Paranoid schizophrenia F20.0 ; Posttraumatic stress disorder F43.10 ; Attention deficit hyperactivity disorder (ADHD), inattentive type, 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 and Borderline personality disorder F60.3 [facility] [address] [id number] [address] [place] [id number] Oct, Paranoid schizophrenia F20.0 ; Posttraumatic stress disorder F43.10 ; Attention deficit hyperactivity disorder (ADHD), inattentive type, 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 and Borderline personality disorder F60.3 [facility] [address] [id number] [address] [place] [address] Aug, [facility] [address] [place] [id number] [place] [address] Aug, Paranoid schizophrenia F20.0 ; Posttraumatic stress disorder F43.10 ; Attention deficit hyperactivity disorder (ADHD), inattentive type, 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 and Borderline personality disorder F60.3 [facility] [address] [facility] [id number] [address] [place] [id number] Jul, Dry skin dermatitis L85.3 [facility] [address] [facility] [id number] [address] [place] [id number] Jul, [facility] [address] [facility] [id number] [address] [place] [id number] Jul, Paranoid schizophrenia F20.0 [facility] [address] [facility] [id number] [address] [place] [address] May, Paranoid schizophrenia F20.0 ; Posttraumatic stress disorder F43.10 ; Attention deficit hyperactivity disorder (ADHD), inattentive type, 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 and Borderline personality disorder F60.3 [facility] [address] [facility] [id number] [address] [place] [phone] May, [facility] [address] [id number] [address] [address] May, Paranoid schizophrenia F20.0 [facility] [address] [id number] [address] [place] [address], [place] [address] May, Paranoid schizophrenia F20.0 ; Posttraumatic stress disorder F43.10 ; Attention deficit hyperactivity disorder (ADHD), inattentive type, 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 and Borderline personality disorder F60.3 [facility] [address] [id number] [facility] [place] [address] Apr, [facility] [address] [id number] [address] [place] [address], [place] [address] Apr, Paranoid schizophrenia F20.0 ; Posttraumatic stress disorder F43.10 ; Attention deficit hyperactivity disorder (ADHD), inattentive type, 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 and Borderline personality disorder F60.3 [facility] [address] [id number] [address] [place] [address] Apr, [facility] [address] [id number] [address] [place] [address] Apr, Schizoaffective disorder, de pressive type F25.1 and Borderline personality disorder F60.3 [facility] [address] [id number] [address] [place] [address] Apr, Paranoid schizophrenia F20.0 ; Posttraumatic stress disorder F43.10 ; Attention deficit hyperactivity disorder (ADHD), inattentive type, 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 and Borderline personality disorder F60.3 [facility] [address] [id number] [address] [place] [address] Apr, [facility] [address] [id number] [address] [place] [phone] Apr, Paranoid schizophrenia F20.0 ; Posttraumatic stress disorder F43.10 ; Attention deficit hyperactivity disorder (ADHD), inattentive type, 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 and Borderline personality disorder F60.3 [facility] [address] [id number] [address] [place] [address] Apr, [facility] [address] [id number] [address] [place] [address] Mar, Paranoid schizophrenia F20.0 [facility] [address] [id number] [address] [place] [id number] Mar, [facility] [address] [id number] [address] [place] [address] Mar, Paranoid schizophrenia F20.0 ; Posttraumatic stress disorder F43.10 ; Attention deficit hyperactivity disorder (ADHD), inattentive type, 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 and Borderline personality disorder F60.3 [facility] [address] [id number] [address] [place] [address] February, Paranoid schizophrenia F20.0 [facility] [address] [id number] [address] [place] [address] February, Paranoid schizophrenia F20.0 ; Posttraumatic stress disorder F43.10 ; Attention deficit hyperactivity disorder (ADHD), inattentive type, 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 and Borderline personality disorder F60.3 [facility] [address] [id number] [address] [place] [address] February, Paranoid schizophrenia F20.0 ; Posttraumatic stress disorder F43.10 ; Attention deficit hyperactivity disorder (ADHD), inattentive type, 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 and Borderline personality disorder F60.3 [facility] [address] [id number] [address] [place] [address] February, [facility] [address] [id number] [address] [place] [address] February, Paranoid schizophrenia F20.0 [facility] [address] [id number] [address] [place] [address] February, Paranoid schizophrenia F20.0 [facility] [address] [id number] [address] [place] [address] February, Paranoid schizophrenia F20.0 ; Posttraumatic stress disorder F43.10 ; Attention deficit hyperactivity disorder (ADHD), inattentive type, 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 and Borderline personality disorder F60.3 [facility] [address] [id number] [address] [place] [address] Jan, Paranoid schizophrenia F20.0 ; Posttraumatic stress disorder F43.10 ; Attention deficit hyperactivity disorder (ADHD), inattentive type, 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 and Borderline personality disorder F60.3 [facility] [address] [id number] [address] [place] [id number] Jan, Paranoid schizophrenia F20.0 [facility] [address] [id number] [address] [place] [address] Jan, Paranoid schizophrenia F20.0 [facility] [address] [facility] [id number] [address] [place] [address] Jan, Paranoid schizophrenia F20.0 ; Posttraumatic stress disorder F43.10 ; Attention deficit hyperactivity disorder (ADHD), inattentive type, 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 and Borderline personality disorder F60.3 [facility] [address] [id number] [address] [place] [id number] Dec, [facility] [address] [id number] [address] [place] [address] Nov, Paranoid schizophrenia F20.0 ; Posttraumatic stress disorder F43.10 ; Attention deficit hyperactivity disorder (ADHD), inattentive type, 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 and Borderline personality disorder F60.3 [facility] [address] [id number] [address] [place] [address] Nov, [facility] [address] [id number] [address] [place] [address] Oct, Paranoid schizophrenia F20.0 [facility] [address] [facility] [id number] [address] [place] [address] Oct, Paranoid schizophrenia F20.0 ; Posttraumatic stress disorder F43.10 ; Attention deficit hyperactivity disorder (ADHD), inattentive type, 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 ; Borderline personality disorder F60.3 and Other senior living (current) drug therapy Z79.899 [facility] [address] [id number] [address] [place] [address] Oct, [facility] [address] [facility] [id number] [address] [place] [address] Oct, [facility] [address] [id number] [address] [place] [phone] Sep, [facility] [address] [id number] [address] [place] [id number] Sep, Paranoid schizophrenia F20.0 ; Posttraumatic stress disorder F43.10 ; Attention deficit hyperactivity disorder (ADHD), inattentive type, 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 and Borderline personality disorder F60.3 [facility] [address] [facility] [id number] [address] [place] [address] Sep, Paranoid schizophrenia F20.0 [facility] [address] [id number] [address] [place] [id number] Aug, Paranoid schizophrenia F20.0 ; Posttraumatic stress disorder F43.10 ; Attention deficit hyperactivity disorder (ADHD), inattentive type, 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 and Borderline personality disorder F60.3 [facility] [address] [facility] [id number] [address] [place] [id number] Aug, Paranoid schizophrenia F20.0 ; Posttraumatic stress disorder F43.10 ; Attention deficit hyperactivity disorder (ADHD), inattentive type, 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 and Borderline personality disorder F60.3 [facility] [address] [id number] [address] [place] [id number] Aug, [facility] [address] [facility] [id number] [address] [place] [id number] Jul, Paranoid schizophrenia F20.0 ; Posttraumatic stress disorder F43.10 ; Attention deficit hyperactivity disorder (ADHD), inattentive type, 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 and Borderline personality disorder F60.3 [facility] [address] [id number] [address] [place] [address] Jul, Paranoid schizophrenia F20.0 [facility] [address] [id number] [address] [place] [id number] Jul, Paranoid schizophrenia F20.0 ; Posttraumatic stress disorder F43.10 ; Attention deficit hyperactivity disorder (ADHD), inattentive type, 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 and Borderline personality disorder F60.3 [facility] [address] [id number] [address] [place] [id number] Jun, Paranoid schizophrenia F20.0 ; Posttraumatic stress disorder F43.10 ; Attention deficit hyperactivity disorder (ADHD), inattentive type, 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 and Borderline personality disorder F60.3 [facility] [address] [id number] [address] [place] [address] May, Other senior living (current) dr ug therapy Z79.899 [facility] [address] [id number] [address] [place] [id number] May, [facility] [address] [id number] [address] [place] [id number] May, [facility] [address] [facility] [id number] [address] [place] [phone] May, Attention deficit hyperactiv ity disorder (ADHD), inattentive type, mild F90.0 [facility] [address] [facility] [id number] [address] [place] [id number] May, [facility] [address] [id number] [address] [place] [id number] May, Attention deficit hyperactiv ity disorder (ADHD), inattentive type, mild F90.0 [facility] [address] [id number] [address] [place] [address] May, Paranoid schizophrenia F20.0 ; Posttraumatic stress disorder F43.10 ; Attention deficit hyperactivity disorder (ADHD), inattentive type, 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 and Other senior living (current) drug therapy Z79.899 [facility] [address] [id number] [address] [place] [id number] Apr, Paranoid schizophrenia F20.0 [facility] [address] [id number] [address] [place] [id number] Apr, Paranoid schizophrenia F20.0 ; Posttraumatic stress disorder F43.10 and Attention deficit hyperactivity disorder (ADHD), inattentive type, 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 [facility] [address] [id number] [address] [place] [id number] February, [facility] [address] [id number] [address] [place] [id number] February, Paranoid schizophrenia F20.0 ; Posttraumatic stress disorder F43.10 and Attention deficit hyperactivity disorder (ADHD), inattentive type, 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 [facility] [address] [id number] [address] [place] [id number] February, Paranoid schizophrenia F20.0 ; Posttraumatic stress disorder F43.10 and Attention deficit hyperactivity disorder (ADHD), inattentive type, 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 [facility] [address] [id number] [address] [place] [id number] Jan, Paranoid schizophrenia F20.0 ; Posttraumatic stress disorder F43.10 and Attention deficit hyperactivity disorder (ADHD), inattentive type, 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 [facility] [address] [id number] [address] [place] [id number] Dec, Dental examination Z01.20 [facility] [address] [id number] [address] [place] [id number] Nov, Dental examination Z01.20 [facility] [address] [id number] [address] [place] [id number] Nov, Dental examination Z01.20 [facility] [address] [id number] [address] [place] [address] [id number] Nov, Dental caries K02.9 [facility] [address] [id number] [address] [place] [address] Nov, High risk medication use Z79 .899 [facility] [address] [id number] [address] [place] [id number] Nov, Paranoid schizophrenia F20.0 ; Posttraumatic stress disorder F43.10 ; Attention deficit hyperactivity disorder (ADHD), inattentive type, 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 and Borderline personality disorder in adult F60.3 [facility] [address] [id number] [address] [place] [address] [id number] Oct, Dental caries K02.9 [facility] [address] [id number] [address] [place] [id number] Sep, Paranoid schizophrenia F20.0 ; Posttraumatic stress disorder F43.10 and Attention deficit hyperactivity disorder (ADHD), inattentive type, 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 [facility] [address] [id number] [address] [place] [id number] Aug, Paranoid schizophrenia F20.0 ; Posttraumatic stress disorder F43.10 and Attention deficit hyperactivity disorder (ADHD), inattentive type, 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 [facility] [address] [id number] [address] [place] [address] Aug, Strep throat J02.0 and Cough R05 [facility] [address] [id number] [address] [place] [id number] Aug, [facility] [address] [id number] [address] [place] [id number] 24 Jul, 2016 Paranoid schizophrenia F20.0 ; Posttraumatic stress disorder F43.10 and Attention deficit hyperactivity disorder (ADHD), inattentive type, 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 [facility] [address] [id number] [address] [place] [id number] Jul, [facility] [address] [id number] [address] [place] [phone] Jun, Paranoid schizophrenia F20.0 ; Posttraumatic stress disorder F43.10 and Attention deficit hyperactivity disorder (ADHD), inattentive type, 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 [facility] [address] [id number] [address] [place] [address] [id number] Jun, Dental examination Z01.20 [facility] [address] [id number] [address] [place] [id number] Jun, [facility] [address] [id number] [address] [place] [id number] May, Paranoid schizophrenia F20.0 [facility] [address] [id number] [address] [place] [address] May, Paranoid schizophrenia F20.0 ; Posttraumatic stress disorder F43.10 and Attention deficit hyperactivity disorder (ADHD), inattentive type, 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 [facility] [address] [id number] [address] [place] [phone] May, [facility] [address] [id number] [address] [place] [phone] May, Paranoid schizophrenia F20.0 [facility] [address] [id number] [address] [place] [phone] May, [facility] [address] [id number] [address] [place] [id number] May, Paranoid schizophrenia F20.0 [facility] [address] [id number] [address] [place] [id number] May, Schizoaffective disorder, un specified F25.9 [facility] [address] [id number] [address] [place] [id number] May, Schizoaffective disorder, un specified F25.9 [facility] [address] [id number] [address] [place] [id number] May, [facility] [address] [id number] [address] [place] [address] May, Paranoid schizophrenia F20.0 [facility] [address] [id number] [address] [place] [address] May, Paranoid schizophrenia F20.0 ; Posttraumatic stress disorder F43.10 and Attention deficit hyperactivity disorder (ADHD), inattentive type, 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 [facility] [address] [id number] [address] [place] [address], [place] [address] Mar, [facility] [address] [id number] [facility] [place] [address] Mar, Paranoid schizophrenia F20.0 ; Posttraumatic stress disorder F43.10 and Attention deficit hyperactivity disorder (ADHD), inattentive type, 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 [facility] [address] [id number] [address] [place] [address], [place] [address] Mar, Paranoid schizophrenia F20.0 [facility] [address] [id number] [address] [place] [address], [place] [address] Mar, Paranoid schizophrenia F20.0 ; Attention deficit hyperactivity disorder (ADHD), inattentive type, 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 and Posttraumatic stress disorder F43.10 [facility] [address] [id number] [address] [place] [address] Mar, [facility] [address] [id number] [address] [place] [address], [place] [address] Mar, Paranoid schizophrenia F20.0 ; Posttraumatic stress disorder F43.10 and Attention deficit hyperactivity disorder (ADHD), inattentive type, 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 [facility] [address] [id number] [address] [place] [address], [place] [address] February, [facility] [address] [id number] [address] [place] [phone] February, [facility] [address] [id number] [address] [place] [address], [place] [address] February, [facility] [address] [id number] [address] [place] [phone] February, [facility] [address] [id number] [address] [place] [address], [place] [address] Jan, Paranoid schizophrenia F20.0 [facility] [address] [id number] [address] [place] [address] [id number] Jan, Dental examination Z01.20 [facility] [address] [id number] [address] [place] [address] [id number] Jan, Dental caries K02.9 [facility] [address] [id number] [address] [place] [address] [id number] Jan, Dental examination Z01.20 [facility] [address] [id number] [address] [place] [address] [id number] Dec, Encounter for dental examina tion Z01.20 [facility] [address] [id number] [address] [place] [phone] Dec, Paranoid schizophrenia F20.0 [facility] [address] [id number] [address] [place] [address] [id number] Dec, Dental examination Z01.20 [facility] [address] [id number] [address] [place] [id number] Dec, [facility] [address] [id number] [address] [place] [phone] Dec, Paranoid schizophrenia F20.0 ; Posttraumatic stress disorder F43.10 and Attention deficit hyperactivity disorder (ADHD), inattentive type, 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 [facility] [address] [id number] [address] [place] [id number] Nov, Schizoaffective disorder, un specified F25.9 [facility] [address] [id number] [address] [place] [phone] Oct, Paranoid schizophrenia F20.0 [facility] [address] [id number] [address] [place] [phone] Oct, [facility] [address] [id number] [address] [place] [id number] Sep, Paranoid schizophrenia F20.0 ; Posttraumatic stress disorder F43.10 and Attention deficit hyperactivity disorder (ADHD), inattentive type, 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 [facility] [address] [id number] [address] [place] [id number] Sep, [facility] [address] [facility] [id number] [address] [place], [place] [id number] Sep, Paranoid schizophrenia F20.0 ; Posttraumatic stress disorder F43.10 and Attention deficit hyperactivity disorder (ADHD), inattentive type, 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 [facility] [address] [facility] [id number] [address] [place] [id number] Aug, Paranoid schizophrenia F20.0 [facility] [address] [facility] [id number] [address] [place] [address] [address] Aug, [facility] [address] [facility] [id number] [address] [place] [address] Aug, Posttraumatic stress disorde r F43.10 ; Paranoid schizophrenia F20.0 and Attention deficit hyperactivity disorder (ADHD), inattentive type, 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 [facility] [address] [facility] [id number] [address] [place] [address] Jul, Bipolar disorder, unspecifie d F31.9 [facility] [address] [facility] [id number] [address] [place] [address] Jul, [facility] [address] [facility] [id number] [address] [place] [address] Jun, [facility] [address] [facility] [id number] [address] [place] [address] Jun, Schizoaffective disorder, ch ronic 295.72 ; Posttraumatic stress disorder 309.81 and Attention deficit disorder of childhood without mention of hyperactivity 314.00 [facility] [address] [facility] [id number] [address] [place] [address] May, [facility] [address] [facility] [id number] [address] [place] [address] May, [facility] [address] [facility] [id number] [address] [place] [address] May, Schizoaffective disorder, ch ronic 295.72 ; Posttraumatic stress disorder 309.81 ; Attention deficit disorder of childhood without mention of hyperactivity 314.00 and Bipolar disorder, unspecified 296.80 [facility] [address] [facility] [id number] [address] [place] [address] Apr, Schizoaffective disorder, ch ronic 295.72 [facility] [address] [facility] [id number] [address] [place] [address] Apr, [facility] [address] [id number] [address] [place] [address] Apr, Schizoaffective disorder, ch ronic 295.72 ; Posttraumatic stress disorder 309.81 and Attention deficit disorder of childhood without mention of hyperactivity 314.00 [facility] [address] [facility] [id number] [address] [place] [address] Mar, Disorganized schizophrenia, 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 [facility] [address] [facility] [id number] [address] [place] [address] Mar, [facility] [address] [facility] [id number] [address] [place] [address] Mar, [facility] [address] [facility] [id number] [address] [place] [address] Mar, [facility] [address] [facility] [id number] [address] [place] [address] Mar, [facility] [address] [facility] [id number] [address] [place] [address] February, Schizoaffective disorder, ch ronic 295.72 [facility] [address] [facility] [id number] [address] [place] [address] February, [facility] [address] [facility] [id number] [address] [place] [address] February, Attention 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 ; Posttraumatic stress disorder 309.81 and Schizoaffective disorder, chronic 295.72 [facility] [address] [id number] [address] [place] [address], [place] [address] 29 Jan, 2015 [facility] [address] [id number] [address] [place] [address], [place] [address] 14 Jan, 2015 [facility] [address] [id number] [address] [place] [address], [place] [address] Jan, [facility] [address] [id number] [address] [place] [address], [place] [address] Dec, [facility] [address] [id number] [address] [place] [address], [place] [address] Dec, [facility] [address] [id number] [address] [place] [address], [place] [address] Dec, [facility] [address] [id number] [address] [place] [address], [place] [address] Dec, [facility] [address] [id number] [address] [place] [address], [place] [address] Dec, [facility] [address] [id number] [address] [place] [address], [place] [address] Dec, [facility] [address] [id number] [address] [place] [address], [place] [address] Dec, [facility] [address] [id number] [address] [place] [address], [place] [address] Dec, [facility] [address] [id number] [address] [place] [address], [place] [address] Nov, [facility] [address] [id number] [address] [place] [address], [place] [address] Nov, [facility] [address] [id number] [address] [place] [address], [place] [address] Nov, [facility] [address] [id number] [address] [place] [address], [place] [address] Nov, [facility] [address] [id number] [address] [place] [address], [place] [address] Nov, [facility] [address] [id number] [address] [place] [address], [place] [address] Nov, [facility] [address] [id number] [address] [place] [address], [place] [address] Nov, [facility] [address] [id number] [address] [place] [address], [place] [address] Nov, [facility] [address] [id number] [address] [place] [address], [place] [address] Nov, [facility] [address] [id number] [address] [place] [address], [place] [address] Nov, [facility] [address] [id number] [address] [place] [address], [place] [address] Oct, [facility] [address] [id number] [address] [place] [address], [place] [address] Oct, [facility] [address] [id number] [address] [place] [address], [place] [address] Oct, [facility] [address] [id number] [address] [place] [address], [place] [address] Oct, [facility] [address] [id number] [address] [place] [address], [place] [address] Oct, [facility] [address] [id number] [address] [place] [address], [place] [address] Oct, [facility] [address] [id number] [address] [place] [address], [place] [address] Oct, [facility] [address] [id number] [address] [place] [address], [place] [address] Sep, [facility] [address] [id number] [address] [place] [address], [place] [address] Sep, [facility] [address] [id number] [address] [place] [address], [place] [address] Sep, [facility] [address] [id number] [address] [place] [address], [place] [address] 15 Sep, 2014 [facility] [address] [id number] [address] [place] [address], [place] [address] Aug, [facility] [address] [id number] [address] [place] [address], [place] [address] Aug, [facility] [address] [id number] [address] [place] [address], [place] [address] Aug, [facility] [address] [id number] [address] [place] [address], [place] [address] Aug, [facility] [address] [id number] [address] [place] [address], [place] [address] Aug, [facility] [address] [id number] [address] [place] [address], [place] [address] Aug, [facility] [address] [id number] [address] [place] [address], [place] [address] Jul, [facility] [address] [id number] [address] [place] [address], [place] [address] 29 Jul, 2014 [facility] [address] [id number] [address] [place] [address], [place] [address] 24 Jul, 2014 [facility] [address] [id number] [address] [place] [address], [place] [address] 24 Jul, 2014 [facility] [address] [id number] [address] [place] [address], [place] [address] 15 Jul, 2014 [facility] [address] [id number] [address] [place] [address], [place] [address] 15 Jul, 2014 [facility] [address] [id number] [address] [place] [address], [place] [address] 27 Jun, 2014 [facility] [address] [id number] [address] [place] [address], [place] [address] 27 Jun, 2014 [facility] [address] [id number] [address] [place] [address], [place] [address] Jun, 2013 [facility] [address] [id number] [facility] [place] [address] 26 Jun, 2013 [facility] [address] [id number] [facility] [place] [address] Jun, 2013 [facility] [address] [id number] [address] [place] [address], [place] [address] Jun, 2013 [facility] [address] [id number] [address] [place] [address], [place] [address] 16 Jun, 2013 [facility] [address] [id number] [address] [place] [address], [place] [address] 16 Jun, 2013 [facility] [address] [id number] [address] [place] [address], [place] [address] Jun, 2013 [facility] [address] [id number] [address] [place] [address], [place] [address] Jun, 2013 [facility] [address] [id number] [address] [place] [address], [place] [address] Jun, [facility] [address] [id number] [address] [place] [address], [place] [address] May, [facility] [address] [id number] [address] [place] [address], [place] [address] May, [facility] [address] [id number] [address] [place] [address], [place] [address] May, [facility] [address] [id number] [address] [place] [address], [place] [address] May, [facility] [address] [id number] [address] [place] [address], [place] [address] May, [facility] [address] [id number] [address] [place] [address], [place] [address] May, [facility] [address] [id number] [address] [place] [address], [place] [address] May, [facility] [address] [id number] [address] [place] [address], [place] [address] May, [facility] [address] [id number] [address] [place] [address], [place] [address] May, [facility] [address] [id number] [address] [place] [address], [place] [address] May, [facility] [address] [id number] [address] [place] [address], [place] [address] Apr, [facility] [address] [id number] [address] [place] [address], [place] [address] Apr, [facility] [address] [id number] [address] [place] [address], [place] [address] Apr, [facility] [address] [id number] [address] [place] [address], [place] [address] Apr, [facility] [address] [id number] [address] [place] [address], [place] [address] Apr, [facility] [address] [id number] [address] [place] [address], [place] [address] Apr, [facility] [address] [id number] [address] [place] [address], [place] [address] Apr, [facility] [address] [id number] [address] [place] [address], [place] [address] Apr, [facility] [address] [id number] [address] [place] [address], [place] [address] Apr, [facility] [address] [id number] [address] [place] [address], [place] [address] Apr, [facility] [address] [id number] [address] [place] [address], [place] [address] Mar, [facility] [address] [id number] [address] [place] [address], [place] [address] Mar, [facility] [address] [id number] [address] [place] [address], [place] [address] Mar, [facility] [address] [id number] [address] [place] [address], [place] [address] Mar, [facility] [address] [id number] [address] [place] [address], [place] [address] Mar, [facility] [address] [id number] [address] [place] [address], [place] [address] Mar, [facility] [address] [id number] [address] [place] [address], [place] [address] Mar, [facility] [address] [id number] [address] [place] [address], [place] [address] Mar, [facility] [address] [id number] [address] [place] [address], [place] [address] Mar, [facility] [address] [id number] [address] [place] [address], [place] [address] Mar, [facility] [address] [id number] [address] [place] [address], [place] [address] Mar, [facility] [address] [id number] [address] [place] [address], [place] [address] Mar, [facility] [address] [id number] [address] [place] [address], [place] [address] Mar, [facility] [address] [id number] [address] [place] [address], [place] [address] Mar, [facility] [address] [id number] [address] [place] [address], [place] [address] Mar, [facility] [address] [id number] [address] [place] [address], [place] [address] Mar, [facility] [address] [id number] [address] [place] [address], [place] [address] Mar, [facility] [address] [id number] [address] [place] [address], [place] [address] 09 Mar, 2014 [facility] [address] [id number] [address] [place] [address], [place] [address] Mar, [facility] [address] [id number] [facility] [place] [address] Mar, [facility] [address] [id number] [address] [place] [address], [place] [address] February, [facility] [address] [id number] [address] [place] [address], [place] [address] February, [facility] [address] [id number] [address] [place] [address], [place] [address] February, [facility] [address] [id number] [address] [place] [address], [place] [address] February, [facility] [address] [id number] [address] [place] [address], [place] [address] February, [facility] [address] [id number] [address] [place] [address], [place] [address] February, [facility] [address] [id number] [address] [place] [address], [place] [address] February, [facility] [address] [id number] [address] [place] [address], [place] [address] February, [facility] [address] [id number] [address] [place] [address], [place] [address] February, [facility] [address] [id number] [address] [place] [address], [place] [address] February, [facility] [address] [id number] [address] [place] [address], [place] [address] February, [facility] [address] [id number] [address] [place] [address], [place] [address] February, [facility] [address] [id number] [address] [place] [address], [place] [address] February, [facility] [address] [id number] [address] [place] [address], [place] [address] February, [facility] [address] [id number] [address] [place] [address], [place] [address] February, [facility] [address] [id number] [address] [place] [address], [place] [address] February, [facility] [address] [id number] [address] [place] [address], [place] [address] February, [facility] [address] [id number] [address] [place] [address], [place] [address] February, [facility] [address] [id number] [address] [place] [address], [place] [address] February, [facility] [address] [id number] [address] [place] [address], [place] [address] February, [facility] [address] [id number] [address] [place] [address], [place] [address] February, [facility] [address] [id number] [address] [place] [address], [place] [address] Jan, [facility] [address] [id number] [address] [place] [address], [place] [address] Jan, [facility] [address] [id number] [address] [place] [address], [place] [address] Jan, [facility] [address] [id number] [address] [place] [address], [place] [address] Jan, [facility] [address] [id number] [address] [place] [address], [place] [address] Jan, [facility] [address] [id number] [address] [place] [address], [place] [address] Jan, [facility] [address] [id number] [address] [place] [address], [place] [address] Jan, [facility] [address] [id number] [address] [place] [address], [place] [address] Jan, [facility] [address] [id number] [address] [place] [address], [place] [address] Dec, [facility] [address] [id number] [facility] [place] [address] 20 Dec, 2013 [facility] [address] [id number] [facility] [place] [address] 20 Dec, 2013 [facility] [address] [id number] [facility] [place] [address] 19 Dec, 2013 [facility] [address] [id number] [address] [place] [address], [place] [address] 19 Dec, 2013 [facility] [address] [id number] [address] [place] [address], [place] [address] 15 Dec, 2013 [facility] [address] [id number] [address] [place] [address], [place] [address] 15 Dec, 2013 [facility] [address] [id number] [address] [place] [address], [place] [address] 11 Dec, 2013 [facility] [address] [id number] [address] [place] [address], [place] [address] 10 Dec, 2013 [facility] [address] [id number] [address] [place] [address], [place] [address] 10 Dec, 2013 [facility] [address] [id number] [address] [place] [address], [place] [address] 18 Nov, 2013 [facility] [address] [id number] [address] [place] [address], [place] [address] 17 Nov, 2013 [facility] [address] [id number] [address] [place] [address], [place] [address] Nov, [facility] [address] [id number] [address] [place] [address], [place] [address] 05 Nov, 2013 [facility] [address] [id number] [address] [place] [address], [place] [address] 05 Nov, 2013 [facility] [address] [id number] [address] [place] [address], [place] [address] Oct, [facility] [address] [id number] [address] [place] [address] Oct, [facility] [address] [id number] [address] [place] [address], [place] [address] Oct, [facility] [address] [id number] [address] [place] [address], [place] [address] Sep, [facility] [address] [id number] [address] [place] [address], [place] [address] Sep, [facility] [address] [id number] [address] [place] [address], [place] [address] Sep, [facility] [address] [id number] [address] [place] [address], [place] [address] Sep, [facility] [address] [id number] [address] [place] [address], [place] [address] Aug, [facility] [address] [id number] [address] [place] [address], [place] [address] Aug, [facility] [address] [id number] [address] [place] [address], [place] [address] Jul, [facility] [address] [id number] [address] [place] [address], [place] [address] Jul, [facility] [address] [id number] [address] [place] [address], [place] [address] Jul, [facility] [address] [id number] [address] [place] [address], [place] [address] Jul, [facility] [address] [id number] [address] [place] [address], [place] [address] Jul, [facility] [address] [id number] [address] [place] [address], [place] [address] Jun, [facility] [address] [id number] [address] [place] [address], [place] [address] Jun, [facility] [address] [id number] [address] [place] [address], [place] [address] 19 Jun, 2013 [facility] [address] [id number] [address] [place] [address], [place] [address] 18 Jun, 2013 [facility] [address] [id number] [address] [place] [address], [place] [address] 16 Jun, 2013 [facility] [address] [id number] [address] [place] [address], [place] [address] 12 Jun, 2013 [facility] [address] [id number] [address] [place] [address], [place] [address] 11 Jun, 2013 [facility] [address] [id number] [address] [place] [address], [place] [address] 30 May, 2013 [facility] [address] [id number] [address] [place] [address], [place] [address] May, [facility] [address] [id number] [address] [place] [address], [place] [address] Apr, [facility] [address] [id number] [address] [place] [address], [place] [address] Apr, [facility] [address] [id number] [address] [place] [address], [place] [address] Apr, [facility] [address] [id number] [address] [place] [address], [place] [address] Mar, [facility] [address] [id number] [address] [place] [address], [place] [address] Mar, [facility] [address] [id number] [address] [place] [address], [place] [address] February, [facility] [address] [id number] [address] [place] [address], [place] [address] February, [facility] [address] [id number] [address] [place] [address], [place] [address] February, [facility] [address] [id number] [address] [place] [address], [place] [address] February, [facility] [address] [id number] [address] [place] [address], [place] [address] 19 Jan, 2013 [facility] [address] [id number] [address] [place] [address], [place] [address] 17 Jan, 2013 [facility] [address] [id number] [address] [place] [address], [place] [address] 16 Jan, 2013 [facility] [address] [id number] [address] [place] [address], [place] [address] 29 Dec, 2012 [facility] [address] [id number] [address] [place] [address], [place] [address] Dec, [facility] [address] [id number] [address] [place] [address], [place] [address] Dec, [facility] [address] [id number] [address] [place] [address], [place] [address] 08 Dec, 2012 [facility] [address] [id number] [address] [place] [address], [place] [address] Nov, [facility] [address] [id number] [address] [place] [address], [place] [address] Nov, [facility] [address] [id number] [address] [place] [address], [place] [address] Oct, [facility] [address] [id number] [address] [place] [address], [place] [address] Oct, [facility] [address] [id number] [address] [place] [address], [place] [address] Oct, [facility] [address] [id number] [address] [place] [address], [place] [address] Oct, [facility] [address] [id number] [address] [place] [address], [place] [address] Aug, [facility] [address] [id number] [address] [place] [address], [place] [address] Aug, [facility] [address] [id number] [address] [place] [address], [place] [address] 18 Jun, 2012 [facility] [address] [id number] [facility] [place] [address] May, [facility] [address] [id number] [address] [place] [address], [place] [address] May, [facility] [address] [id number] [address] [place] [address], [place] [address] Apr, [facility] [address] [id number] [address] [place] [address], [place] [address] Apr, [facility] [address] [id number] [address] [place] [address], [place] [address] Apr, [facility] [address] [id number] [address] [place] [address], [place] [address] Mar, [facility] [address] [id number] [address] [place] [address], [place] [address] Mar, [facility] [address] [id number] [address] [place] [address], [place] [address] Mar, [facility] [address] [id number] [address] [place] [address], [place] [address] Mar, [facility] [address] [id number] [address] [place] [address], [place] [address] Mar, [facility] [address] [id number] [address] [place] [address], [place] [address] February, [facility] [address] [id number] [address] [place] [address], [place] [address] February, [facility] [address] [id number] [address] [place] [address], [place] [address] February, [facility] [address] [id number] [address] [place] [address], [place] [address] February, [facility] [address] [id number] [address] [place] [address], [place] [address] February, [facility] [address] [id number] [address] [place] [address], [place] [address] February, [facility] [address] [id number] [address] [place] [address], [place] [address] February, [facility] [address] [id number] [address] [place] [address], [place] [address] Jan, [facility] [address] [id number] [address] [place] [address], [place] [address] Jan, [facility] [address] [id number] [address] [place] [address], [place] [address] 17 Jan, 2012 [facility] [address] [id number] [address] [place] [address], [place] [address] Jan, [facility] [address] [id number] [address] [place] [address], [place] [address] Jan, [facility] [address] [id number] [address] [place] [address], [place] [address] Jan, [facility] [address] [id number] [address] [place] [address], [place] [address] 30 Dec, 2011 [facility] [address] [id number] [address] [place] [address], [place] [address] 24 Dec, 2011 [facility] [address] [id number] [address] [place] [address], [place] [address] Dec, [facility] [address] [id number] [address] [place] [address], [place] [address] Dec, [facility] [address] [id number] [address] [place] [address], [place] [address] Dec, [facility] [address] [id number] [address] [place] [address], [place] [address] Nov, [facility] [address] [id number] [address] [place] [address], [place] [address] Nov, [facility] [address] [id number] [address] [place] [address], [place] [address] Nov, [facility] [address] [id number] [address] [place] [address], [place] [address] 14 Nov, 2011 [facility] [address] [id number] [address] [place] [address], [place] [address] 10 Nov, 2011 [facility] [address] [id number] [address] [place] [address], [place] [address] Nov, [facility] [address] [id number] [address] [place] [address], [place] [address] Oct, [facility] [address] [id number] [address] [place] [address], [place] [address] Oct, [facility] [address] [id number] [address] [place] [address], [place] [address] Oct, [facility] [address] [id number] [address] [place] [address], [place] [address] Oct, [facility] [address] [id number] [address] [place] [address], [place] [address] Oct, [facility] [address] [id number] [address] [place] [address], [place] [address] Sep, [facility] [address] [id number] [address] [place] [address], [place] [address] Sep, [facility] [address] [id number] [address] [place] [address], [place] [address] Sep, [facility] [address] [id number] [address] [place] [address], [place] [address] 14 Sep, 2011 [facility] [address] [id number] [address] [place] [address], [place] [address] 14 Sep, 2011 [facility] [address] [id number] [address] [place] [address], [place] [address] 13 Sep, 2011 [facility] [address] [id number] [address] [place] [address], [place] [address] 12 Sep, 2011 [facility] [address] [id number] [address] [place] [address], [place] [address] Sep, [facility] [address] [id number] [address] [place] [address], [place] [address] Sep, [facility] [address] [id number] [address] [place] [address], [place] [address] Aug, [facility] [address] [id number] [address] [place] [address], [place] [address] Aug, [facility] [address] [id number] [address] [place] [address], [place] [address] Aug, [facility] [address] [id number] [address] [place] [address], [place] [address] Aug, [facility] [address] [id number] [address] [place] [address], [place] [address] Aug, [facility] [address] [id number] [address] [place] [address], [place] [address] Aug, [facility] [address] [id number] [address] [place] [address], [place] [address] Aug, [facility] [address] [id number] [address] [place] [address], [place] [address] Aug, [facility] [address] [id number] [address] [place] [address], [place] [address] Aug, [facility] [address] [id number] [address] [place] [address], [place] [address] Aug, [facility] [address] [id number] [address] [place] [address], [place] [address] Aug, [facility] [address] [id number] [address] [place] [address], [place] [address] Aug, [facility] [address] [id number] [address] [place] [address], [place] [address] Jul, [facility] [address] [id number] [address] [place] [address], [place] [address] Jul, [facility] [address] [id number] [address] [place] [address] Jul, [facility] [address] [id number] [address] [place] [address] Jul, [facility] [address] [id number] [address] [place] [address] Jul, [facility] [address] [id number] [address] [place] [address] Jul, [facility] [address] [id number] [address] [place] [address] Jul, [facility] [address] [id number] [address] [place] [address] Jul, [facility] [address] [id number] [address] [place] [address] Jul, [facility] [address] [id number] [address] [place] [address] Jul, [facility] [address] [id number] [address] [place] [address] Nov, [facility] [address] [id number] [address] [place] [address] Aug, [facility] [address] [id number] [address] [place] [address] Aug, [facility] [address] [id number] [address] [place] [address] Aug, [facility] [address] [id number] [address] [place] [address] Aug, [facility] [address] [id number] [address] [place] [address] Jul, IMMUNIZATIONS No Known Immunizations SOCIAL HISTORY Never Assessed REASON FOR VISIT EMR-[facility] PLAN OF CARE VITAL SIGNS [...]
--- OUTSIDE RECORDS SUMMARY | 2020-04-04 02:17 | XMS REPORT ---
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 Active 71517882 Problem Generalized anxiety disorder 300.02 A ctive 48883470 Problem Obsessive-compulsive disorders 300.3 Active 060689600 Problem Catatonic schizophrenia, 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 883855669 Problem Disorganized schizophrenia, 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 97965449 Problem Paranoid schizophrenia F20.0 Active 72685922 Problem Borderline personality disorder F60.3 Active 06414020 Problem Paranoid schizophrenia, unspecified condition 295.30 Active 53235784 Problem Schizoaffective disorder, depressive type F25.1 Active 87730294 Problem Bipolar disorder, unspecified 296.80 Active 34886702 Problem Schizoaffective disorder, unspecified F25.9 Active 77756525 Problem Attention deficit hyperactivity disorder (ADHD), inattentive type, 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 44679525 Problem Posttraumatic stress disorder F43.10 Active 85268222 Problem High risk medication use Z79.899 Activ e [id number] ALLERGIES No Information ENCOUNTERS Encounter Location Date Diagnosis [facility] [address] [facility] [id number] [address] [place] [phone] Jan, [facility] [address] [facility] [id number] [address] [place] [address] Dec, Paranoid schizophrenia F20.0 ; Posttraumatic stress disorder F43.10 ; Attention deficit hyperactivity disorder (ADHD), inattentive type, 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 and Borderline personality disorder F60.3 [facility] [address] [facility] [id number] [address] [place] [address] Dec, Paranoid schizophrenia F20.0 ; Posttraumatic stress disorder F43.10 ; Attention deficit hyperactivity disorder (ADHD), inattentive type, 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 and Borderline personality disorder F60.3 [facility] [address] [place] [id number] [address] [place] [address] Oct, Paranoid schizophrenia F20.0 ; Posttraumatic stress disorder F43.10 ; Attention deficit hyperactivity disorder (ADHD), inattentive type, 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 and Borderline personality disorder F60.3 [facility] [address] [place] [id number] [address] [place] [address] Oct, Paranoid schizophrenia F20.0 ; Posttraumatic stress disorder F43.10 ; Attention deficit hyperactivity disorder (ADHD), inattentive type, 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 and Borderline personality disorder F60.3 [facility] [address] [place] [id number] [address] [place] [address] Aug, [facility] [address] [place] [id number] [place] [address] Aug, Paranoid schizophrenia F20.0 ; Posttraumatic stress disorder F43.10 ; Attention deficit hyperactivity disorder (ADHD), inattentive type, 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 and Borderline personality disorder F60.3 [facility] [address] [facility] [id number] [address] [place] [address] Jul, Dry skin dermatitis L85.3 [facility] [address] [facility] [id number] [address] [place] [address] Jul, [facility] [address] [facility] [id number] [address] [place] [phone] Jul, Paranoid schizophrenia F20.0 [facility] [address] [facility] [id number] [address] [place] [address] May, Paranoid schizophrenia F20.0 ; Posttraumatic stress disorder F43.10 ; Attention deficit hyperactivity disorder (ADHD), inattentive type, 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 and Borderline personality disorder F60.3 [facility] [address] [facility] [id number] [address] [place] [phone] May, [facility] [address] [id number] [address] [address] May, Paranoid schizophrenia F20.0 [facility] [address] [id number] [address] [place] [address], [place] [address] May, Paranoid schizophrenia F20.0 ; Posttraumatic stress disorder F43.10 ; Attention deficit hyperactivity disorder (ADHD), inattentive type, 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 and Borderline personality disorder F60.3 [facility] [address] [id number] [facility] [place] [address] Apr, [facility] [address] [id number] [address] [place] [address], [place] [address] Apr, Paranoid schizophrenia F20.0 ; Posttraumatic stress disorder F43.10 ; Attention deficit hyperactivity disorder (ADHD), inattentive type, 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 and Borderline personality disorder F60.3 [facility] [address] [id number] [address] [place] [id number] Apr, [facility] [address] [id number] [address] [place] [phone] Apr, Schizoaffective disorder, de pressive type F25.1 and Borderline personality disorder F60.3 [facility] [address] [id number] [address] [place] [address] Apr, Paranoid schizophrenia F20.0 ; Posttraumatic stress disorder F43.10 ; Attention deficit hyperactivity disorder (ADHD), inattentive type, 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 and Borderline personality disorder F60.3 [facility] [address] [id number] [address] [place] [phone] Apr, [facility] [address] [id number] [address] [place] [address] Apr, Paranoid schizophrenia F20.0 ; Posttraumatic stress disorder F43.10 ; Attention deficit hyperactivity disorder (ADHD), inattentive type, 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 and Borderline personality disorder F60.3 [facility] [address] [id number] [address] [place] [address] Apr, [facility] [address] [id number] [address] [place] [address] Mar, Paranoid schizophrenia F20.0 [facility] [address] [id number] [address] [place] [address] Mar, [facility] [address] [id number] [address] [place] [address] Mar, Paranoid schizophrenia F20.0 ; Posttraumatic stress disorder F43.10 ; Attention deficit hyperactivity disorder (ADHD), inattentive type, 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 and Borderline personality disorder F60.3 [facility] [address] [id number] [address] [place] [address] February, Paranoid schizophrenia F20.0 [facility] [address] [id number] [address] [place] [address] February, Paranoid schizophrenia F20.0 ; Posttraumatic stress disorder F43.10 ; Attention deficit hyperactivity disorder (ADHD), inattentive type, 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 and Borderline personality disorder F60.3 [facility] [address] [id number] [address] [place] [phone] February, Paranoid schizophrenia F20.0 ; Posttraumatic stress disorder F43.10 ; Attention deficit hyperactivity disorder (ADHD), inattentive type, 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 and Borderline personality disorder F60.3 [facility] [address] [id number] [address] [place] [address] February, [facility] [address] [id number] [address] [place] [address] February, Paranoid schizophrenia F20.0 [facility] [address] [id number] [address] [place] [address] February, Paranoid schizophrenia F20.0 [facility] [address] [id number] [address] [place] [address] February, Paranoid schizophrenia F20.0 ; Posttraumatic stress disorder F43.10 ; Attention deficit hyperactivity disorder (ADHD), inattentive type, 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 and Borderline personality disorder F60.3 [facility] [address] [id number] [address] [place] [address] Jan, Paranoid schizophrenia F20.0 ; Posttraumatic stress disorder F43.10 ; Attention deficit hyperactivity disorder (ADHD), inattentive type, 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 and Borderline personality disorder F60.3 [facility] [address] [id number] [address] [place] [address] Jan, Paranoid schizophrenia F20.0 [facility] [address] [id number] [address] [place] [address] Jan, Paranoid schizophrenia F20.0 [facility] [address] [facility] [id number] [address] [place] [address] Jan, Paranoid schizophrenia F20.0 ; Posttraumatic stress disorder F43.10 ; Attention deficit hyperactivity disorder (ADHD), inattentive type, 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 and Borderline personality disorder F60.3 [facility] [address] [id number] [address] [place] [address] Dec, [facility] [address] [id number] [address] [place] [phone] Nov, Paranoid schizophrenia F20.0 ; Posttraumatic stress disorder F43.10 ; Attention deficit hyperactivity disorder (ADHD), inattentive type, 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 and Borderline personality disorder F60.3 [facility] [address] [id number] [address] [place] [address] Nov, [facility] [address] [id number] [address] [place] [phone] Oct, Paranoid schizophrenia F20.0 [facility] [address] [facility] [id number] [address] [place] [address] Oct, Paranoid schizophrenia F20.0 ; Posttraumatic stress disorder F43.10 ; Attention deficit hyperactivity disorder (ADHD), inattentive type, 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 ; Borderline personality disorder F60.3 and Other halfway (current) drug therapy Z79.899 [facility] [address] [id number] [address] [place] [phone] Oct, [facility] [address] [facility] [id number] [address] [place] [phone] Oct, [facility] [address] [id number] [address] [place] [address] Sep, [facility] [address] [id number] [address] [place] [phone] Sep, Paranoid schizophrenia F20.0 ; Posttraumatic stress disorder F43.10 ; Attention deficit hyperactivity disorder (ADHD), inattentive type, 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 and Borderline personality disorder F60.3 [facility] [address] [facility] [id number] [address] [place] [address] Sep, Paranoid schizophrenia F20.0 [facility] [address] [id number] [address] [place] [address] Aug, Paranoid schizophrenia F20.0 ; Posttraumatic stress disorder F43.10 ; Attention deficit hyperactivity disorder (ADHD), inattentive type, 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 and Borderline personality disorder F60.3 [facility] [address] [facility] [id number] [address] [place] [address] Aug, Paranoid schizophrenia F20.0 ; Posttraumatic stress disorder F43.10 ; Attention deficit hyperactivity disorder (ADHD), inattentive type, 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 and Borderline personality disorder F60.3 [facility] [address] [id number] [address] [place] [phone] Aug, [facility] [address] [facility] [id number] [address] [place] [phone] Jul, Paranoid schizophrenia F20.0 ; Posttraumatic stress disorder F43.10 ; Attention deficit hyperactivity disorder (ADHD), inattentive type, 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 and Borderline personality disorder F60.3 [facility] [address] [id number] [address] [place] [address] Jul, Paranoid schizophrenia F20.0 [facility] [address] [id number] [address] [place] [address] Jul, Paranoid schizophrenia F20.0 ; Posttraumatic stress disorder F43.10 ; Attention deficit hyperactivity disorder (ADHD), inattentive type, 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 and Borderline personality disorder F60.3 [facility] [address] [id number] [address] [place] [address] Jun, Paranoid schizophrenia F20.0 ; Posttraumatic stress disorder F43.10 ; Attention deficit hyperactivity disorder (ADHD), inattentive type, 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 and Borderline personality disorder F60.3 [facility] [address] [id number] [address] [place] [address] May, Other halfway (current) dr ug therapy Z79.899 [facility] [address] [id number] [address] [place] [address] May, [facility] [address] [id number] [address] [place] [phone] May, [facility] [address] [facility] [id number] [address] [place] [phone] May, Attention deficit hyperactiv ity disorder (ADHD), inattentive type, mild F90.0 [facility] [address] [facility] [id number] [address] [place] [phone] May, [facility] [address] [id number] [address] [place] [phone] May, Attention deficit hyperactiv ity disorder (ADHD), inattentive type, mild F90.0 [facility] [address] [id number] [address] [place] [phone] May, Paranoid schizophrenia F20.0 ; Posttraumatic stress disorder F43.10 ; Attention deficit hyperactivity disorder (ADHD), inattentive type, 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 and Other halfway (current) drug therapy Z79.899 [facility] [address] [id number] [address] [place] [phone] Apr, Paranoid schizophrenia F20.0 [facility] [address] [id number] [address] [place] [phone] Apr, Paranoid schizophrenia F20.0 ; Posttraumatic stress disorder F43.10 and Attention deficit hyperactivity disorder (ADHD), inattentive type, 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10 and Attention deficit hyperactivity disorder (ADHD), inattentive type, 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 [facility] [address] [id number] [address] [place] [phone] Jan, Paranoid schizophrenia F20.0 ; Posttraumatic stress disorder F43.10 and Attention deficit hyperactivity disorder (ADHD), inattentive type, 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 [facility] [address] [id number] [address] [place] [id number] Dec, Dental examination Z01.20 [facility] [address] [id number] [address] [place] [address] [id number] Nov, Dental examination Z01.20 [facility] [address] [id number] [address] [place] [address] [id number] Nov, Dental examination Z01.20 [facility] [address] [id number] [address] [place] [address] [id number] Nov, Dental caries K02.9 [facility] [address] [id number] [address] [place] [address] Nov, High risk medication use Z79 .899 [facility] [address] [id number] [address] [place] [address] Nov, Paranoid schizophrenia F20.0 ; Posttraumatic stress disorder F43.10 ; Attention deficit hyperactivity disorder (ADHD), inattentive type, 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 and Borderline personality disorder in adult F60.3 [facility] [address] [id number] [address] [place] [id number] Oct, Dental caries K02.9 [facility] [address] [id number] [address] [place] [address] Sep, Paranoid schizophrenia F20.0 ; Posttraumatic stress disorder F43.10 and Attention deficit hyperactivity disorder (ADHD), inattentive type, 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 [facility] [address] [id number] [address] [place] [address] Aug, Paranoid schizophrenia F20.0 ; Posttraumatic stress disorder F43.10 and Attention deficit hyperactivity disorder (ADHD), inattentive type, 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 [facility] [address] [id number] [address] [place] [phone] Aug, Strep throat J02.0 and Cough R05 [facility] [address] [id number] [address] [place] [address] Aug, [facility] [address] [id number] [address] [place] [phone] 24 Jul, 2016 Paranoid schizophrenia F20.0 ; Posttraumatic stress disorder F43.10 and Attention deficit hyperactivity disorder (ADHD), inattentive type, 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 [facility] [address] [id number] [address] [place] [phone] Jul, [facility] [address] [id number] [address] [place] [phone] Jun, Paranoid schizophrenia F20.0 ; Posttraumatic stress disorder F43.10 and Attention deficit hyperactivity disorder (ADHD), inattentive type, 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 [facility] [address] [id number] [address] [place] [id number] Jun, Dental examination Z01.20 [facility] [address] [id number] [address] [place] [phone] Jun, [facility] [address] [id number] [address] [place] [phone] May, Paranoid schizophrenia F20.0 [facility] [address] [id number] [address] [place] [phone] May, Paranoid schizophrenia F20.0 ; Posttraumatic stress disorder F43.10 and Attention deficit hyperactivity disorder (ADHD), inattentive type, 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 [facility] [address] [id number] [address] [place] [phone] May, [facility] [address] [id number] [address] [place] [phone] May, Paranoid schizophrenia F20.0 [facility] [address] [id number] [address] [place] [phone] May, [facility] [address] [id number] [address] [place] [phone] May, Paranoid schizophrenia F20.0 [facility] [address] [id number] [address] [place] [phone] May, Schizoaffective disorder, un specified F25.9 [facility] [address] [id number] [address] [place] [phone] May, Schizoaffective disorder, un specified F25.9 [facility] [address] [id number] [address] [place] [phone] May, [facility] [address] [id number] [address] [place] [phone] May, Paranoid schizophrenia F20.0 [facility] [address] [id number] [address] [place] [address] May, Paranoid schizophrenia F20.0 ; Posttraumatic stress disorder F43.10 and Attention deficit hyperactivity disorder (ADHD), inattentive type, 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 [facility] [address] [id number] [address] [place] [address], [place] [address] Mar, [facility] [address] [id number] [facility] [place] [address] Mar, Paranoid schizophrenia F20.0 ; Posttraumatic stress disorder F43.10 and Attention deficit hyperactivity disorder (ADHD), inattentive type, 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 [facility] [address] [id number] [address] [place] [address], [place] [address] Mar, Paranoid schizophrenia F20.0 [facility] [address] [id number] [address] [place] [address], [place] [address] Mar, Paranoid schizophrenia F20.0 ; Attention deficit hyperactivity disorder (ADHD), inattentive type, 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 and Posttraumatic stress disorder F43.10 [facility] [address] [id number] [address] [place] [phone] Mar, [facility] [address] [id number] [address] [place] [address], [place] [address] Mar, Paranoid schizophrenia F20.0 ; Posttraumatic stress disorder F43.10 and Attention deficit hyperactivity disorder (ADHD), inattentive type, 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 [facility] [address] [id number] [address] [place] [address], [place] [address] February, [facility] [address] [id number] [address] [place] [phone] February, [facility] [address] [id number] [address] [place] [address], [place] [address] February, [facility] [address] [id number] [address] [place] [phone] February, [facility] [address] [id number] [address] [place] [address], [place] [address] Jan, Paranoid schizophrenia F20.0 [facility] [address] [id number] [address] [place] [address] [id number] Jan, Dental examination Z01.20 [facility] [address] [id number] [address] [place] [address] [id number] Jan, Dental caries K02.9 [facility] [address] [id number] [address] [place] [address] [id number] Jan, Dental examination Z01.20 [facility] [address] [id number] [address] [place] [address] [id number] Dec, Encounter for dental examina tion Z01.20 [facility] [address] [id number] [address] [place] [phone] Dec, Paranoid schizophrenia F20.0 [facility] [address] [id number] [address] [place] [address] [id number] Dec, Dental examination Z01.20 [facility] [address] [id number] [address] [place] [phone] Dec, [facility] [address] [id number] [address] [place] [phone] Dec, Paranoid schizophrenia F20.0 ; Posttraumatic stress disorder F43.10 and Attention deficit hyperactivity disorder (ADHD), inattentive type, 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 [facility] [address] [id number] [address] [place] [address] Nov, Schizoaffective disorder, un specified F25.9 [facility] [address] [id number] [address] [place] [address] Oct, Paranoid schizophrenia F20.0 [facility] [address] [id number] [address] [place] [address] Oct, [facility] [address] [id number] [address] [place] [address] Sep, Paranoid schizophrenia F20.0 ; Posttraumatic stress disorder F43.10 and Attention deficit hyperactivity disorder (ADHD), inattentive type, 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 [facility] [address] [id number] [address] [place] [address] Sep, [facility] [address] [facility] [id number] [address] [place], [place] [address] Sep, Paranoid schizophrenia F20.0 ; Posttraumatic stress disorder F43.10 and Attention deficit hyperactivity disorder (ADHD), inattentive type, 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 [facility] [address] [facility] [id number] [address] [place] [address] Aug, Paranoid schizophrenia F20.0 [facility] [address] [facility] [id number] [address] [place] [address] Aug, [facility] [address] [facility] [id number] [address] [place] [address] Aug, Posttraumatic stress disorde r F43.10 ; Paranoid schizophrenia F20.0 and Attention deficit hyperactivity disorder (ADHD), inattentive type, 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 [facility] [address] [facility] [id number] [address] [place] [address] Jul, Bipolar disorder, unspecifie d F31.9 [facility] [address] [facility] [id number] [address] [place] [address] Jul, [facility] [address] [facility] [id number] [address] [place] [address] Jun, [facility] [address] [facility] [id number] [address] [place] [address] Jun, Schizoaffective disorder, ch ronic 295.72 ; Posttraumatic stress disorder 309.81 and Attention deficit disorder of childhood without mention of hyperactivity 314.00 [facility] [address] [facility] [id number] [address] [place] [address] May, [facility] [address] [facility] [id number] [address] [place] [address] May, [facility] [address] [facility] [id number] [address] [place] [address] May, Schizoaffective disorder, ch ronic 295.72 ; Posttraumatic stress disorder 309.81 ; Attention deficit disorder of childhood without mention of hyperactivity 314.00 and Bipolar disorder, unspecified 296.80 [facility] [address] [facility] [id number] [address] [place] [address] Apr, Schizoaffective disorder, ch ronic 295.72 [facility] [address] [facility] [id number] [address] [place] [address] Apr, [facility] [address] [id number] [address] [place] [address] Apr, Schizoaffective disorder, ch ronic 295.72 ; Posttraumatic stress disorder 309.81 and Attention deficit disorder of childhood without mention of hyperactivity 314.00 [facility] [address] [facility] [id number] [address] [place] [address] Mar, Disorganized schizophrenia, 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 [facility] [address] [facility] [id number] [address] [place] [address] Mar, [facility] [address] [facility] [id number] [address] [place] [address] Mar, [facility] [address] [facility] [id number] [address] [place] [address] Mar, [facility] [address] [facility] [id number] [address] [place] [address] Mar, [facility] [address] [facility] [id number] [address] [place] [address] February, Schizoaffective disorder, ch ronic 295.72 [facility] [address] [facility] [id number] [address] [place] [address] February, [facility] [address] [facility] [id number] [address] [place] [address] February, Attention 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 ; Posttraumatic stress disorder 309.81 and Schizoaffective disorder, chronic 295.72 [facility] [address] [id number] [address] [place] [address], [place] [address] 29 Jan, 2015 [facility] [address] [id number] [address] [place] [address], [place] [address] 14 Jan, 2015 [facility] [address] [id number] [address] [place] [address], [place] [address] Jan, [facility] [address] [id number] [address] [place] [address], [place] [address] Dec, [facility] [address] [id number] [address] [place] [address], [place] [address] Dec, [facility] [address] [id number] [address] [place] [address], [place] [address] Dec, [facility] [address] [id number] [address] [place] [address], [place] [address] Dec, [facility] [address] [id number] [address] [place] [address], [place] [address] Dec, [facility] [address] [id number] [address] [place] [address], [place] [address] Dec, [facility] [address] [id number] [address] [place] [address], [place] [address] Dec, [facility] [address] [id number] [address] [place] [address], [place] [address] Dec, [facility] [address] [id number] [address] [place] [address], [place] [address] Nov, [facility] [address] [id number] [address] [place] [address], [place] [address] Nov, [facility] [address] [id number] [address] [place] [address], [place] [address] Nov, [facility] [address] [id number] [address] [place] [address], [place] [address] Nov, [facility] [address] [id number] [address] [place] [address], [place] [address] Nov, [facility] [address] [id number] [address] [place] [address], [place] [address] Nov, [facility] [address] [id number] [address] [place] [address], [place] [address] Nov, [facility] [address] [id number] [address] [place] [address], [place] [address] Nov, [facility] [address] [id number] [address] [place] [address], [place] [address] Nov, [facility] [address] [id number] [address] [place] [address], [place] [address] Nov, [facility] [address] [id number] [address] [place] [address], [place] [address] Oct, [facility] [address] [id number] [address] [place] [address], [place] [address] Oct, [facility] [address] [id number] [address] [place] [address], [place] [address] Oct, [facility] [address] [id number] [address] [place] [address], [place] [address] Oct, [facility] [address] [id number] [address] [place] [address], [place] [address] Oct, [facility] [address] [id number] [address] [place] [address], [place] [address] Oct, [facility] [address] [id number] [address] [place] [address], [place] [address] Oct, [facility] [address] [id number] [address] [place] [address], [place] [address] Sep, [facility] [address] [id number] [address] [place] [address], [place] [address] Sep, [facility] [address] [id number] [address] [place] [address], [place] [address] Sep, [facility] [address] [id number] [address] [place] [address], [place] [address] 15 Sep, 2014 [facility] [address] [id number] [address] [place] [address], [place] [address] Aug, [facility] [address] [id number] [address] [place] [address], [place] [address] Aug, [facility] [address] [id number] [address] [place] [address], [place] [address] Aug, [facility] [address] [id number] [address] [place] [address], [place] [address] Aug, [facility] [address] [id number] [address] [place] [address], [place] [address] Aug, [facility] [address] [id number] [address] [place] [address], [place] [address] Aug, [facility] [address] [id number] [address] [place] [address], [place] [address] Jul, [facility] [address] [id number] [address] [place] [address], [place] [address] 29 Jul, 2014 [facility] [address] [id number] [address] [place] [address], [place] [address] 24 Jul, 2014 [facility] [address] [id number] [address] [place] [address], [place] [address] 24 Jul, 2014 [facility] [address] [id number] [address] [place] [address], [place] [address] 15 Jul, 2014 [facility] [address] [id number] [address] [place] [address], [place] [address] 15 Jul, 2014 [facility] [address] [id number] [address] [place] [address], [place] [address] 27 Jun, 2014 [facility] [address] [id number] [address] [place] [address], [place] [address] 27 Jun, 2014 [facility] [address] [id number] [address] [place] [address], [place] [address] Jun, 2013 [facility] [address] [id number] [facility] [place] [address] 26 Jun, 2013 [facility] [address] [id number] [facility] [place] [address] Jun, 2013 [facility] [address] [id number] [address] [place] [address], [place] [address] Jun, 2013 [facility] [address] [id number] [address] [place] [address], [place] [address] 16 Jun, 2013 [facility] [address] [id number] [address] [place] [address], [place] [address] 16 Jun, 2013 [facility] [address] [id number] [address] [place] [address], [place] [address] Jun, 2013 [facility] [address] [id number] [address] [place] [address], [place] [address] Jun, 2013 [facility] [address] [id number] [address] [place] [address], [place] [address] Jun, [facility] [address] [id number] [address] [place] [address], [place] [address] May, [facility] [address] [id number] [address] [place] [address], [place] [address] May, [facility] [address] [id number] [address] [place] [address], [place] [address] May, [facility] [address] [id number] [address] [place] [address], [place] [address] May, [facility] [address] [id number] [address] [place] [address], [place] [address] May, [facility] [address] [id number] [address] [place] [address], [place] [address] May, [facility] [address] [id number] [address] [place] [address], [place] [address] May, [facility] [address] [id number] [address] [place] [address], [place] [address] May, [facility] [address] [id number] [address] [place] [address], [place] [address] May, [facility] [address] [id number] [address] [place] [address], [place] [address] May, [facility] [address] [id number] [address] [place] [address], [place] [address] Apr, [facility] [address] [id number] [address] [place] [address], [place] [address] Apr, [facility] [address] [id number] [address] [place] [address], [place] [address] Apr, [facility] [address] [id number] [address] [place] [address], [place] [address] Apr, [facility] [address] [id number] [address] [place] [address], [place] [address] Apr, [facility] [address] [id number] [address] [place] [address], [place] [address] Apr, [facility] [address] [id number] [address] [place] [address], [place] [address] Apr, [facility] [address] [id number] [address] [place] [address], [place] [address] Apr, [facility] [address] [id number] [address] [place] [address], [place] [address] Apr, [facility] [address] [id number] [address] [place] [address], [place] [address] Apr, [facility] [address] [id number] [address] [place] [address], [place] [address] Mar, [facility] [address] [id number] [address] [place] [address], [place] [address] Mar, [facility] [address] [id number] [address] [place] [address], [place] [address] Mar, [facility] [address] [id number] [address] [place] [address], [place] [address] Mar, [facility] [address] [id number] [address] [place] [address], [place] [address] Mar, [facility] [address] [id number] [address] [place] [address], [place] [address] Mar, [facility] [address] [id number] [address] [place] [address], [place] [address] Mar, [facility] [address] [id number] [address] [place] [address], [place] [address] Mar, [facility] [address] [id number] [address] [place] [address], [place] [address] Mar, [facility] [address] [id number] [address] [place] [address], [place] [address] Mar, [facility] [address] [id number] [address] [place] [address], [place] [address] Mar, [facility] [address] [id number] [address] [place] [address], [place] [address] Mar, [facility] [address] [id number] [address] [place] [address], [place] [address] Mar, [facility] [address] [id number] [address] [place] [address], [place] [address] Mar, [facility] [address] [id number] [address] [place] [address], [place] [address] Mar, [facility] [address] [id number] [address] [place] [address], [place] [address] Mar, [facility] [address] [id number] [address] [place] [address], [place] [address] Mar, [facility] [address] [id number] [address] [place] [address], [place] [address] 09 Mar, 2014 [facility] [address] [id number] [address] [place] [address], [place] [address] Mar, [facility] [address] [id number] [facility] [place] [address] Mar, [facility] [address] [id number] [address] [place] [address], [place] [address] February, [facility] [address] [id number] [address] [place] [address], [place] [address] February, [facility] [address] [id number] [address] [place] [address], [place] [address] February, [facility] [address] [id number] [address] [place] [address], [place] [address] February, [facility] [address] [id number] [address] [place] [address], [place] [address] February, [facility] [address] [id number] [address] [place] [address], [place] [address] February, [facility] [address] [id number] [address] [place] [address], [place] [address] February, [facility] [address] [id number] [address] [place] [address], [place] [address] February, [facility] [address] [id number] [address] [place] [address], [place] [address] February, [facility] [address] [id number] [address] [place] [address], [place] [address] February, [facility] [address] [id number] [address] [place] [address], [place] [address] February, [facility] [address] [id number] [address] [place] [address], [place] [address] February, [facility] [address] [id number] [address] [place] [address], [place] [address] February, [facility] [address] [id number] [address] [place] [address], [place] [address] February, [facility] [address] [id number] [address] [place] [address], [place] [address] February, [facility] [address] [id number] [address] [place] [address], [place] [address] February, [facility] [address] [id number] [address] [place] [address], [place] [address] February, [facility] [address] [id number] [address] [place] [address], [place] [address] February, [facility] [address] [id number] [address] [place] [address], [place] [address] February, [facility] [address] [id number] [address] [place] [address], [place] [address] February, [facility] [address] [id number] [address] [place] [address], [place] [address] February, [facility] [address] [id number] [address] [place] [address], [place] [address] Jan, [facility] [address] [id number] [address] [place] [address], [place] [address] Jan, [facility] [address] [id number] [address] [place] [address], [place] [address] Jan, [facility] [address] [id number] [address] [place] [address], [place] [address] Jan, [facility] [address] [id number] [address] [place] [address], [place] [address] Jan, [facility] [address] [id number] [address] [place] [address], [place] [address] Jan, [facility] [address] [id number] [address] [place] [address], [place] [address] Jan, [facility] [address] [id number] [address] [place] [address], [place] [address] Jan, [facility] [address] [id number] [address] [place] [address], [place] [address] Dec, [facility] [address] [id number] [facility] [place] [address] 20 Dec, 2013 [facility] [address] [id number] [facility] [place] [address] 20 Dec, 2013 [facility] [address] [id number] [facility] [place] [address] 19 Dec, 2013 [facility] [address] [id number] [address] [place] [address], [place] [address] 19 Dec, 2013 [facility] [address] [id number] [address] [place] [address], [place] [address] 15 Dec, 2013 [facility] [place] [facility] [address] [id number] [address] [place] [address], [place] [address] 15 Dec, 2013 [facility] [address] [id number] [address] [place] [address], [place] [address] 11 Dec, 2013 [facility] [place] [facility] [address] [id number] [address] [place] [address], [place] [address] 10 Dec, 2013 [facility] [place] [facility] [address] [id number] [address] [place] [address], [place] [address] 10 Dec, 2013 [facility] [place] [facility] [address] [id number] [address] [place] [address], [place] [address] 18 Nov, 2013 [facility] [place] [facility] [address] [id number] [address] [place] [address], [place] [address] 17 Nov, 2013 [facility] [place] [facility] [address] [id number] [address] [place] [address], [place] [address] Nov, [facility] [place] [facility] [address] [id number] [address] [place] [address], [place] [address] 05 Nov, 2013 [facility] [place] [facility] [address] [id number] [address] [place] [address], [place] [address] 05 Nov, 2013 [facility] [place] [facility] [address] [id number] [address] [place] [address], [place] [address] Oct, [facility] [place] [facility] [address] [id number] [address] [place] [address] Oct, [facility] [address] [id number] [address] [place] [address], [place] [address] Oct, [facility] [address] [id number] [address] [place] [address], [place] [address] Sep, [facility] [address] [id number] [address] [place] [address], [place] [address] Sep, [facility] [address] [id number] [address] [place] [address], [place] [address] Sep, [facility] [address] [id number] [address] [place] [address], [place] [address] Sep, [facility] [address] [id number] [address] [place] [address], [place] [address] Aug, [facility] [address] [id number] [address] [place] [address], [place] [address] Aug, [facility] [address] [id number] [address] [place] [address], [place] [address] Jul, [facility] [address] [id number] [address] [place] [address], [place] [address] Jul, [facility] [address] [id number] [address] [place] [address], [place] [address] Jul, [facility] [address] [id number] [address] [place] [address], [place] [address] Jul, [facility] [address] [id number] [address] [place] [address], [place] [address] Jul, [facility] [address] [id number] [address] [place] [address], [place] [address] Jun, [facility] [address] [id number] [address] [place] [address], [place] [address] Jun, [facility] [address] [id number] [address] [place] [address], [place] [address] 19 Jun, 2013 [facility] [place] [facility] [address] [id number] [address] [place] [address], [place] [address] 18 Jun, 2013 [facility] [address] [id number] [address] [place] [address], [place] [address] 16 Jun, 2013 [facility] [address] [id number] [address] [place] [address], [place] [address] 12 Jun, 2013 [facility] [address] [id number] [address] [place] [address], [place] [address] 11 Jun, 2013 [facility] [address] [id number] [address] [place] [address], [place] [address] 30 May, 2013 [facility] [address] [id number] [address] [place] [address], [place] [address] May, [facility] [address] [id number] [address] [place] [address], [place] [address] Apr, [facility] [address] [id number] [address] [place] [address], [place] [address] Apr, [facility] [address] [id number] [address] [place] [address], [place] [address] Apr, [facility] [address] [id number] [address] [place] [address], [place] [address] Mar, [facility] [address] [id number] [address] [place] [address], [place] [address] Mar, [facility] [address] [id number] [address] [place] [address], [place] [address] February, [facility] [address] [id number] [address] [place] [address], [place] [address] February, [facility] [address] [id number] [address] [place] [place] [address], [place] [address] February, [facility] [address] [id number] [address] [place] [address], [place] [address] February, [facility] [address] [id number] [address] [place] [address], [place] [address] 19 Jan, 2013 [facility] [address] [id number] [address] [place] [address], [place] [address] 17 Jan, 2013 [facility] [address] [id number] [address] [place] [address], [place] [address] 16 Jan, 2013 [facility] [address] [id number] [address] [place] [address], [place] [address] 29 Dec, 2012 [facility] [address] [id number] [address] [place] [address], [place] [address] Dec, [facility] [address] [id number] [address] [place] [address], [place] [address] Dec, [facility] [address] [id number] [address] [place] [address], [place] [address] 08 Dec, 2012 [facility] [address] [id number] [address] [place] [address], [place] [address] Nov, [facility] [address] [id number] [address] [place] [address], [place] [address] Nov, [facility] [address] [id number] [address] [place] [address], [place] [address] Oct, [facility] [address] [id number] [address] [place] [address], [place] [address] Oct, [facility] [address] [id number] [address] [place] [address], [place] [address] Oct, [facility] [address] [id number] [address] [place] [address], [place] [address] Oct, [facility] [address] [id number] [address] [place] [address], [place] [address] Aug, [facility] [address] [id number] [address] [place] [address], [place] [address] Aug, [facility] [address] [id number] [address] [place] [address], [place] [address] 18 Jun, 2012 [facility] [address] [id number] [facility] [place] [address] May, [facility] [address] [id number] [address] [place] [address], [place] [address] May, [facility] [address] [id number] [address] [place] [address], [place] [address] Apr, [facility] [address] [id number] [address] [place] [address], [place] [address] Apr, [facility] [address] [id number] [address] [place] [address], [place] [address] Apr, [facility] [address] [id number] [address] [place] [address], [place] [address] Mar, [facility] [address] [id number] [address] [place] [address], [place] [address] Mar, [facility] [address] [id number] [address] [place] [address], [place] [address] Mar, [facility] [address] [id number] [address] [place] [address], [place] [address] Mar, [facility] [address] [id number] [address] [place] [address], [place] [address] Mar, [facility] [address] [id number] [address] [place] [address], [place] [address] February, [facility] [address] [id number] [address] [place] [address], [place] [address] February, [facility] [address] [id number] [address] [place] [address], [place] [address] February, [facility] [address] [id number] [address] [place] [address], [place] [address] February, [facility] [address] [id number] [address] [place] [address], [place] [address] February, [facility] [address] [id number] [address] [place] [address], [place] [address] February, [facility] [address] [id number] [address] [place] [address], [place] [address] February, [facility] [address] [id number] [address] [place] [address], [place] [address] Jan, [facility] [address] [id number] [address] [place] [address], [place] [address] Jan, [facility] [address] [id number] [address] [place] [address], [place] [address] 17 Jan, 2012 [facility] [address] [id number] [address] [place] [address], [place] [address] Jan, [facility] [address] [id number] [address] [place] [address], [place] [address] Jan, [facility] [address] [id number] [address] [place] [address], [place] [address] Jan, [facility] [address] [id number] [address] [place] [address], [place] [address] 30 Dec, 2011 [facility] [address] [id number] [address] [place] [address], [place] [address] 24 Dec, 2011 [facility] [address] [id number] [address] [place] [address], [place] [address] Dec, [facility] [address] [id number] [address] [place] [address], [place] [address] Dec, [facility] [address] [id number] [address] [place] [address], [place] [address] Dec, [facility] [address] [id number] [address] [place] [address], [place] [address] Nov, [facility] [address] [id number] [address] [place] [address], [place] [address] Nov, [facility] [address] [id number] [address] [place] [address], [place] [address] Nov, [facility] [address] [id number] [address] [place] [address], [place] [address] 14 Nov, 2011 [facility] [address] [id number] [address] [place] [address], [place] [address] 10 Nov, 2011 [facility] [address] [id number] [address] [place] [address], [place] [address] Nov, [facility] [address] [id number] [address] [place] [address], [place] [address] Oct, [facility] [address] [id number] [address] [place] [address], [place] [address] Oct, [facility] [address] [id number] [address] [place] [address], [place] [address] Oct, [facility] [address] [id number] [address] [place] [address], [place] [address] Oct, [facility] [address] [id number] [address] [place] [address], [place] [address] Oct, [facility] [address] [id number] [address] [place] [address], [place] [address] Sep, [facility] [address] [id number] [address] [place] [address], [place] [address] Sep, [facility] [address] [id number] [address] [place] [address], [place] [address] Sep, [facility] [address] [id number] [address] [place] [address], [place] [address] 14 Sep, 2011 [facility] [address] [id number] [address] [place] [address], [place] [address] 14 Sep, 2011 [facility] [address] [id number] [address] [place] [address], [place] [address] 13 Sep, 2011 [facility] [address] [id number] [address] [place] [address], [place] [address] 12 Sep, 2011 [facility] [address] [id number] [address] [place] [address], [place] [address] Sep, [facility] [address] [id number] [address] [place] [address], [place] [address] Sep, [facility] [address] [id number] [address] [place] [address], [place] [address] Aug, [facility] [address] [id number] [address] [place] [address], [place] [address] Aug, [facility] [address] [id number] [address] [place] [address], [place] [address] Aug, [facility] [address] [id number] [address] [place] [address], [place] [address] Aug, [facility] [address] [id number] [address] [place] [address], [place] [address] Aug, [facility] [address] [id number] [address] [place] [address], [place] [address] Aug, [facility] [address] [id number] [address] [place] [address], [place] [address] Aug, [facility] [address] [id number] [address] [place] [address], [place] [address] Aug, [facility] [address] [id number] [address] [place] [address], [place] [address] Aug, [facility] [address] [id number] [address] [place] [address], [place] [address] Aug, [facility] [address] [id number] [address] [place] [address], [place] [address] Aug, [facility] [address] [id number] [address] [place] [address], [place] [address] Aug, [facility] [address] [id number] [address] [place] [address], [place] [address] Jul, [facility] [address] [id number] [address] [place] [address], [place] [address] Jul, [facility] [address] [id number] [address] [place] [address] Jul, [facility] [address] [id number] [address] [place] [address] Jul, [facility] [address] [id number] [address] [place] [address] Jul, [facility] [address] [id number] [address] [place] [address] Jul, [facility] [address] [id number] [address] [place] [address] Jul, [facility] [address] [id number] [address] [place] [address] Jul, [facility] [address] [id number] [address] [place] [address] Jul, [facility] [address] [id number] [address] [place] [address] Jul, [facility] [address] [id number] [address] [place] [address] Nov, [facility] [address] [id number] [address] [place] [address] Aug, [facility] [address] [id number] [address] [place] [address] Aug, [facility] [address] [id number] [address] [place] [address] Aug, [facility] [address] [id number] [address] [place] [address] Aug, [facility] [address] [id number] [address] [place] [address] Jul, IMMUNIZATIONS No Known Immunizations SOCIAL HISTORY Never Assessed [place] [place] VITAL SIGNS MEDICATIONS [...]
--- OUTSIDE RECORDS SUMMARY | 2020-04-04 02:25 | XMS REPORT ---
Author Author Kaila Roca Organization [facility] Address [address] [place] [address] Care Team Providers Care Director Digital Marketing Name Role Phone BRYAN Roca Unavailable PROBLEMS Type Condition ICD9-CM Code [id number] Code Onset Dates Condition S tatus SNOMED Code Problem Paranoid schizophrenia F20.0 Active 25721216 Problem Borderline personality disorder F60.3 Active 54875030 Problem Schizoaffective disorder, depressive type F25.1 Active 12684255 Problem Schizoaffective disorder, unspecified F25.9 Active 65334270 Problem Attention deficit hyperactivity disorder (ADHD), inattentive type, 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 67839418 Problem Posttraumatic stress disorder F43.10 Active 79249378 Problem High risk medication use Z79.899 Activ e [id number] ALLERGIES No Information ENCOUNTERS Encounter Location Date Diagnosis [facility] [address] [facility] [id number] [address] [place] [address] Jan, [facility] [address] [facility] [id number] [address] [place] [address] Jan, [facility] [address] [facility] [id number] [address] [place] [id number] 16 Jan, 2020 [facility] [address] [facility] [id number] [address] [place] [address] Jan, [facility] [address] [facility] [id number] [address] [place] [address] Jan, [facility] [address] [facility] [id number] [address] [place] [address] Jan, Posttraumatic stress disorde r F43.10 ; Attention deficit hyperactivity disorder (ADHD), inattentive type, 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 ; Borderline personality disorder F60.3 and Schizoaffective disorder, depressive type F25.1 [facility] [address] [id number] [address] [place] [address] Dec, Paranoid schizophrenia F20.0 ; Attention deficit hyperactivity disorder (ADHD), inattentive type, 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 ; Posttraumatic stress disorder F43.10 and Borderline personality disorder F60.3 [facility] [address] [id number] [address] [place] [address] Nov, Paranoid schizophrenia F20.0 ; Attention deficit hyperactivity disorder (ADHD), inattentive type, 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 ; Posttraumatic stress disorder F43.10 and Borderline personality disorder F60.3 [facility] [address] [id number] [address] [place] [address] Nov, [facility] [address] [id number] [address] [place] [address] Oct, Paranoid schizophrenia F20.0 ; Attention deficit hyperactivity disorder (ADHD), inattentive type, 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 ; Posttraumatic stress disorder F43.10 and Borderline personality disorder F60.3 [facility] [address] [id number] [address] [place] [address] Oct, [facility] [address] [id number] [address] [place] [address] Sep, Paranoid schizophrenia F20.0 ; Attention deficit hyperactivity disorder (ADHD), inattentive type, 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 ; Posttraumatic stress disorder F43.10 and Borderline personality disorder F60.3 [facility] [address] [id number] [address] [place] [address] Aug, Paranoid schizophrenia F20.0 ; Attention deficit hyperactivity disorder (ADHD), inattentive type, 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 ; Posttraumatic stress disorder F43.10 and Borderline personality disorder F60.3 [facility] [address] [id number] [address] [place] [address] Aug, [facility] [address] [id number] [address] [place] [address] Aug, Acute bronchitis, unspecifie d organism J20.9 [facility] [address] [id number] [address] [place] [address] Aug, [facility] [address] [id number] [address] [place] [address] Aug, [facility] [address] [id number] [address] [place] [address] Jul, Paranoid schizophrenia F20.0 ; Attention deficit hyperactivity disorder (ADHD), inattentive type, 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 ; Posttraumatic stress disorder F43.10 and Borderline personality disorder F60.3 [facility] [address] [facility] [id number] [address] [place] [address] Jul, [facility] [address] [facility] [id number] [address] [place] [address] Jun, Paranoid schizophrenia F20.0 ; Other correction (current) drug therapy Z79.899 ; Attention deficit hyperactivity disorder (ADHD), inattentive type, 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 ; Posttraumatic stress disorder F43.10 and Borderline personality disorder F60.3 [facility] [address] [facility] [id number] [address] [place] [address] Jun, Paranoid schizophrenia F20.0 ; Attention deficit hyperactivity disorder (ADHD), inattentive type, 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 ; Posttraumatic stress disorder F43.10 ; Borderline personality disorder F60.3 and Other correction (current) drug therapy Z79.899 [facility] [address] [id number] [address] [place] [address] Apr, Paranoid schizophrenia F20.0 ; Posttraumatic stress disorder F43.10 ; Attention deficit hyperactivity disorder (ADHD), inattentive type, 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 and Borderline personality disorder F60.3 [facility] [address] [facility] [id number] [address] [place] [address] Apr, Paranoid schizophrenia F20.0 [facility] [address] [facility] [id number] [address] [place] [address] Apr, Paranoid schizophrenia F20.0 ; Posttraumatic stress disorder F43.10 ; Attention deficit hyperactivity disorder (ADHD), inattentive type, 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 and Borderline personality disorder F60.3 [facility] [address] [facility] [id number] [address] [place] [address] Mar, Paranoid schizophrenia F20.0 [facility] [address] [facility] [id number] [address] [place] [address] Mar, Paranoid schizophrenia F20.0 ; Posttraumatic stress disorder F43.10 ; Attention deficit hyperactivity disorder (ADHD), inattentive type, 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 and Borderline personality disorder F60.3 [facility] [address] [facility] [id number] [address] [place] [address] February, Paranoid schizophrenia F20.0 [facility] [address] [facility] [id number] [address] [place] [address] Jan, Paranoid schizophrenia F20.0 ; Posttraumatic stress disorder F43.10 ; Attention deficit hyperactivity disorder (ADHD), inattentive type, 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 and Borderline personality disorder F60.3 [facility] [address] [facility] [id number] [address] [place] [address] Dec, Paranoid schizophrenia F20.0 ; Posttraumatic stress disorder F43.10 ; Attention deficit hyperactivity disorder (ADHD), inattentive type, 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 and Borderline personality disorder F60.3 [facility] [address] [facility] [id number] [address] [place] [address] Dec, Paranoid schizophrenia F20.0 ; Posttraumatic stress disorder F43.10 ; Attention deficit hyperactivity disorder (ADHD), inattentive type, 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 and Borderline personality disorder F60.3 [facility] [address] [facility] [id number] [address] [place] [address] Oct, Paranoid schizophrenia F20.0 ; Posttraumatic stress disorder F43.10 ; Attention deficit hyperactivity disorder (ADHD), inattentive type, 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 and Borderline personality disorder F60.3 [facility] [address] [id number] [address] [place] [address] Oct, Paranoid schizophrenia F20.0 ; Posttraumatic stress disorder F43.10 ; Attention deficit hyperactivity disorder (ADHD), inattentive type, 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 and Borderline personality disorder F60.3 [facility] [address] [id number] [address] [place] [address] Aug, [facility] [address] [id number] [address] [place] [address] Aug, Paranoid schizophrenia F20.0 ; Posttraumatic stress disorder F43.10 ; Attention deficit hyperactivity disorder (ADHD), inattentive type, 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 and Borderline personality disorder F60.3 [facility] [address] [id number] [address] [place] [address] Jul, Dry skin dermatitis L85.3 [facility] [address] [id number] [address] [place] [address] Jul, [facility] [address] [id number] [address] [place] [address] Jul, Paranoid schizophrenia F20.0 [facility] [address] [id number] [address] [place] [address] May, Paranoid schizophrenia F20.0 ; Posttraumatic stress disorder F43.10 ; Attention deficit hyperactivity disorder (ADHD), inattentive type, 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 and Borderline personality disorder F60.3 [facility] [address] [id number] [address] [place] [address] May, [facility] [address] [id number] [address] [place] [address] May, Paranoid schizophrenia F20.0 [facility] [address] [facility] [id number] [address] [place] [address] May, Paranoid schizophrenia F20.0 ; Posttraumatic stress disorder F43.10 ; Attention deficit hyperactivity disorder (ADHD), inattentive type, 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 and Borderline personality disorder F60.3 [facility] [address] [id number] [address] [place] [address] Apr, [facility] [address] [id number] [address] [place] [address] Apr, Paranoid schizophrenia F20.0 ; Posttraumatic stress disorder F43.10 ; Attention deficit hyperactivity disorder (ADHD), inattentive type, 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 and Borderline personality disorder F60.3 [facility] [address] [id number] [address] [place] [address] Apr, [facility] [address] [id number] [address] [place] [address] Apr, Schizoaffective disorder, de pressive type F25.1 and Borderline personality disorder F60.3 [facility] [address] [id number] [address] [place] [address] Apr, Paranoid schizophrenia F20.0 ; Posttraumatic stress disorder F43.10 ; Attention deficit hyperactivity disorder (ADHD), inattentive type, 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 and Borderline personality disorder F60.3 [facility] [address] [id number] [address] [place] [address] Apr, [facility] [address] [id number] [address] [place] [address] Apr, Paranoid schizophrenia F20.0 ; Posttraumatic stress disorder F43.10 ; Attention deficit hyperactivity disorder (ADHD), inattentive type, 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 and Borderline personality disorder F60.3 [facility] [address] [id number] [address] [place] [address] Apr, [facility] [address] [id number] [address] [place] [address] Mar, Paranoid schizophrenia F20.0 [facility] [address] [id number] [address] [place] [address] Mar, [facility] [address] [id number] [address] [place] [address] Mar, Paranoid schizophrenia F20.0 ; Posttraumatic stress disorder F43.10 ; Attention deficit hyperactivity disorder (ADHD), inattentive type, 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 and Borderline personality disorder F60.3 [facility] [address] [id number] [address] [place] [address] February, Paranoid schizophrenia F20.0 [facility] [address] [id number] [address] [place] [address] February, Paranoid schizophrenia F20.0 ; Posttraumatic stress disorder F43.10 ; Attention deficit hyperactivity disorder (ADHD), inattentive type, 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 and Borderline personality disorder F60.3 [facility] [address] [id number] [address] [place] [address] February, Paranoid schizophrenia F20.0 ; Posttraumatic stress disorder F43.10 ; Attention deficit hyperactivity disorder (ADHD), inattentive type, 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 and Borderline personality disorder F60.3 [facility] [address] [facility] [id number] [address] [place] [address] February, [facility] [address] [id number] [address] [place] [address] February, Paranoid schizophrenia F20.0 [facility] [address] [facility] [id number] [address] [place] [address] February, Paranoid schizophrenia F20.0 [facility] [address] [id number] [address] [place] [address] February, Paranoid schizophrenia F20.0 ; Posttraumatic stress disorder F43.10 ; Attention deficit hyperactivity disorder (ADHD), inattentive type, 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 and Borderline personality disorder F60.3 [facility] [address] [id number] [address] [place] [address] Jan, Paranoid schizophrenia F20.0 ; Posttraumatic stress disorder F43.10 ; Attention deficit hyperactivity disorder (ADHD), inattentive type, 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 and Borderline personality disorder F60.3 [facility] [address] [id number] [address] [place] [address] Jan, Paranoid schizophrenia F20.0 [facility] [address] [id number] [address] [place] [address] Jan, Paranoid schizophrenia F20.0 [facility] [address] [id number] [address] [place] [address] Jan, Paranoid schizophrenia F20.0 ; Posttraumatic stress disorder F43.10 ; Attention deficit hyperactivity disorder (ADHD), inattentive type, 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 and Borderline personality disorder F60.3 [facility] [address] [id number] [address] [place] [address] Dec, [facility] [address] [id number] [address] [place] [address] Nov, Paranoid schizophrenia F20.0 ; Posttraumatic stress disorder F43.10 ; Attention deficit hyperactivity disorder (ADHD), inattentive type, 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 and Borderline personality disorder F60.3 [facility] [address] [id number] [address] [place] [address] Nov, [facility] [address] [id number] [address] [place] [address] Oct, Paranoid schizophrenia F20.0 [facility] [address] [id number] [address] [place] [address] Oct, Paranoid schizophrenia F20.0 ; Posttraumatic stress disorder F43.10 ; Attention deficit hyperactivity disorder (ADHD), inattentive type, 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 ; Borderline personality disorder F60.3 and Other correction (current) drug therapy Z79.899 [facility] [address] [id number] [address] [place] [address] Oct, [facility] [address] [id number] [address] [place] [address] Oct, [facility] [address] [facility] [id number] [address] [place] [address] Sep, [facility] [address] [id number] [address] [place] [address] Sep, Paranoid schizophrenia F20.0 ; Posttraumatic stress disorder F43.10 ; Attention deficit hyperactivity disorder (ADHD), inattentive type, 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 and Borderline personality disorder F60.3 [facility] [address] [facility] [id number] [address] [place] [address] Sep, Paranoid schizophrenia F20.0 [facility] [address] [id number] [address] [place] [address] Aug, Paranoid schizophrenia F20.0 ; Posttraumatic stress disorder F43.10 ; Attention deficit hyperactivity disorder (ADHD), inattentive type, 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 and Borderline personality disorder F60.3 [facility] [address] [facility] [id number] [address] [place] [address] Aug, Paranoid schizophrenia F20.0 ; Posttraumatic stress disorder F43.10 ; Attention deficit hyperactivity disorder (ADHD), inattentive type, 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 and Borderline personality disorder F60.3 [facility] [address] [facility] [id number] [address] [place] [address] Aug, [facility] [address] [facility] [id number] [address] [place] [address] Jul, Paranoid schizophrenia F20.0 ; Posttraumatic stress disorder F43.10 ; Attention deficit hyperactivity disorder (ADHD), inattentive type, 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 and Borderline personality disorder F60.3 [facility] [address] [facility] [id number] [address] [place] [address] Jul, Paranoid schizophrenia F20.0 [facility] [address] [id number] [address] [place] [address] Jul, Paranoid schizophrenia F20.0 ; Posttraumatic stress disorder F43.10 ; Attention deficit hyperactivity disorder (ADHD), inattentive type, 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 and Borderline personality disorder F60.3 [facility] [address] [facility] [id number] [address] [place] [address] Jun, Paranoid schizophrenia F20.0 ; Posttraumatic stress disorder F43.10 ; Attention deficit hyperactivity disorder (ADHD), inattentive type, 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 and Borderline personality disorder F60.3 [facility] [address] [id number] [address] [place] [address] May, 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 [facility] [address] [id number] [address] [place] [address] May, [facility] [address] [id number] [address] [place] [address] May, [facility] [address] [id number] [address] [place] [address] May, Attention deficit hyperactiv ity disorder (ADHD), inattentive type, mild F90.0 [facility] [address] [id number] [address] [place] [address] May, [facility] [address] [id number] [address] [place] [address] May, Attention deficit hyperactiv ity disorder (ADHD), inattentive type, mild F90.0 [facility] [address] [facility] [id number] [address] [place] [address] May, Paranoid schizophrenia F20.0 ; Posttraumatic stress disorder F43.10 ; Attention deficit hyperactivity disorder (ADHD), inattentive type, 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 and Other correction (current) drug therapy Z79.899 [facility] [address] [id number] [address] [place] [address] Apr, Paranoid schizophrenia F20.0 [facility] [address] [id number] [address] [place] [address] Apr, Paranoid schizophrenia F20.0 ; Posttraumatic stress disorder F43.10 and Attention deficit hyperactivity disorder (ADHD), inattentive type, 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 [facility] [address] [id number] [address] [place] [address] February, [facility] [address] [id number] [address] [place] [address] February, Paranoid schizophrenia F20.0 ; Posttraumatic stress disorder F43.10 and Attention deficit hyperactivity disorder (ADHD), inattentive type, 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 [facility] [address] [facility] [id number] [address] [place] [address] February, Paranoid schizophrenia F20.0 ; Posttraumatic stress disorder F43.10 and Attention deficit hyperactivity disorder (ADHD), inattentive type, 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 [facility] [address] [id number] [address] [place] [address] Jan, Paranoid schizophrenia F20.0 ; Posttraumatic stress disorder F43.10 and Attention deficit hyperactivity disorder (ADHD), inattentive type, 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 [facility] [address] [id number] [address] [place] [id number] Dec, Dental examination Z01.20 [facility] [address] [id number] [address] [place] [id number] Nov, Dental examination Z01.20 [facility] [address] [id number] [place] [id number] Nov, Dental examination Z01.20 [facility] [address] [id number] [address] [place] [id number] Nov, Dental caries K02.9 [facility] [address] [id number] [address] [place] [address] Nov, High risk medication use Z79 .899 [facility] [address] [id number] [address] [place] [address] Nov, Paranoid schizophrenia F20.0 ; Posttraumatic stress disorder F43.10 ; Attention deficit hyperactivity disorder (ADHD), inattentive type, 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 and Borderline personality disorder in adult F60.3 [facility] [address] [id number] [address] [place] [address] [id number] Oct, Dental caries K02.9 [facility] [address] [id number] [address] [place] [address] Sep, Paranoid schizophrenia F20.0 ; Posttraumatic stress disorder F43.10 and Attention deficit hyperactivity disorder (ADHD), inattentive type, 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 [facility] [address] [id number] [address] [place] [address] Aug, Paranoid schizophrenia F20.0 ; Posttraumatic stress disorder F43.10 and Attention deficit hyperactivity disorder (ADHD), inattentive type, 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 [facility] [address] [id number] [address] [place] [address] Aug, Strep throat J02.0 and Cough R05 [facility] [address] [id number] [address] [place] [address] Aug, [facility] [address] [id number] [address] [place] [address] Jul, Paranoid schizophrenia F20.0 ; Posttraumatic stress disorder F43.10 and Attention deficit hyperactivity disorder (ADHD), inattentive type, 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 [facility] [address] [id number] [address] [place] [address] Jul, [facility] [address] [id number] [address] [place] [phone] 28 Jun, 2016 Paranoid schizophrenia F20.0 ; Posttraumatic stress disorder F43.10 and Attention deficit hyperactivity disorder (ADHD), inattentive type, 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 [facility] [address] [id number] [address] [place] [address] [id number] Jun, Dental examination Z01.20 [facility] [address] [id number] [address] [place] [address] Jun, [facility] [address] [id number] [address] [place] [address] May, Paranoid schizophrenia F20.0 [facility] [address] [id number] [address] [place] [address] May, Paranoid schizophrenia F20.0 ; Posttraumatic stress disorder F43.10 and Attention deficit hyperactivity disorder (ADHD), inattentive type, 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 [facility] [address] [id number] [address] [place] [address] May, [facility] [address] [id number] [address] [place] [address] May, Paranoid schizophrenia F20.0 [facility] [address] [id number] [address] [place] [address] May, [facility] [address] [id number] [address] [place] [address] May, Paranoid schizophrenia F20.0 [facility] [address] [id number] [address] [place] [address] May, Schizoaffective disorder, un specified F25.9 [facility] [address] [id number] [address] [place] [address] May, Schizoaffective disorder, un specified F25.9 [facility] [address] [id number] [address] [place] [address] May, [facility] [address] [id number] [address] [place] [address] May, Paranoid schizophrenia F20.0 [facility] [address] [id number] [address] [place] [address] May, Paranoid schizophrenia F20.0 ; Posttraumatic stress disorder F43.10 and Attention deficit hyperactivity disorder (ADHD), inattentive type, 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 [facility] [address] [id number] [address] [place] [address] Mar, [facility] [address] [id number] [address] [place] [address] Mar, Paranoid schizophrenia F20.0 ; Posttraumatic stress disorder F43.10 and Attention deficit hyperactivity disorder (ADHD), inattentive type, 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 [facility] [address] [id number] [address] [place] [address] Mar, Paranoid schizophrenia F20.0 [facility] [address] [id number] [address] [place] [address] Mar, Paranoid schizophrenia F20.0 ; Attention deficit hyperactivity disorder (ADHD), inattentive type, 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 and Posttraumatic stress disorder F43.10 [facility] [address] [id number] [address] [place] [address] Mar, [facility] [address] [id number] [address] [place] [address] Mar, Paranoid schizophrenia F20.0 ; Posttraumatic stress disorder F43.10 and Attention deficit hyperactivity disorder (ADHD), inattentive type, 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 [facility] [address] [id number] [address] [place] [address] February, [facility] [address] [id number] [address] [place] [address] February, [facility] [address] [id number] [address] [place] [address] February, [facility] [address] [id number] [address] [place] [address] February, [facility] [address] [id number] [address] [place] [address] Jan, Paranoid schizophrenia F20.0 [facility] [address] [id number] [address] [place] [id number] Jan, Dental examination Z01.20 [facility] [address] [id number] [address] [place] [id number] Jan, Dental caries K02.9 [facility] [address] [id number] [address] [place] [id number] Jan, Dental examination Z01.20 [facility] [address] [id number] [address] [place] [id number] 30 Dec, 2015 Encounter for dental examina tion Z01.20 [facility] [address] [id number] [address] [place] [address] 30 Dec, 2015 Paranoid schizophrenia F20.0 [facility] [address] [id number] [place] [id number] 15 Dec, 2015 Dental examination Z01.20 [facility] [address] [id number] [address] [place] [address] Dec, [facility] [address] [id number] [address] [place] [address] Dec, Paranoid schizophrenia F20.0 ; Posttraumatic stress disorder F43.10 and Attention deficit hyperactivity disorder (ADHD), inattentive type, 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 [facility] [address] [id number] [address] [place] [address] Nov, Schizoaffective disorder, un specified F25.9 [facility] [address] [id number] [address] [place] [address] Oct, Paranoid schizophrenia F20.0 [facility] [address] [id number] [address] [place] [address] Oct, [facility] [address] [id number] [address] [place] [address] Sep, Paranoid schizophrenia F20.0 ; Posttraumatic stress disorder F43.10 and Attention deficit hyperactivity disorder (ADHD), inattentive type, 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 [facility] [address] [id number] [address] [place] [address] Sep, [facility] [address] [id number] [address] [place] [address] Sep, Paranoid schizophrenia F20.0 ; Posttraumatic stress disorder F43.10 and Attention deficit hyperactivity disorder (ADHD), inattentive type, 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 [facility] [address] [id number] [address] [place] [address] Aug, Paranoid schizophrenia F20.0 [facility] [address] [facility] [id number] [address] [place] [address] Aug, [facility] [address] [id number] [address] [place] [address] Aug, Posttraumatic stress disorde r F43.10 ; Paranoid schizophrenia F20.0 and Attention deficit hyperactivity disorder (ADHD), inattentive type, 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 [facility] [address] [id number] [address] [place] [address] Jul, Bipolar disorder, unspecifie d F31.9 [facility] [address] [id number] [address] [place] [address] Jul, [facility] [id number] [place] [address] Jun, [facility] [address] [address] Jun, Schizoaffective disorder, ch ronic 295.72 ; Posttraumatic stress disorder 309.81 and Attention deficit disorder of childhood without mention of hyperactivity 314.00 [facility] [address] [id number] [address] [place] [address] May, [facility] [address] [id number] [address] [place] [address] May, [facility] [address] [id number] [address] [place] [address] May, Schizoaffective disorder, ch ronic 295.72 ; Posttraumatic stress disorder 309.81 ; Attention deficit disorder of childhood without mention of hyperactivity 314.00 and Bipolar disorder, unspecified 296.80 [facility] [address] [id number] [address] [place] [address] Apr, Schizoaffective disorder, ch ronic 295.72 [facility] [address] [id number] [address] [place] [address] Apr, [facility] [address] [id number] [address] [place] [address] Apr, Schizoaffective disorder, ch ronic 295.72 ; Posttraumatic stress disorder 309.81 and Attention deficit disorder of childhood without mention of hyperactivity 314.00 [facility] [address] [id number] [address] [place] [address] Mar, Disorganized schizophrenia, 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 [facility] [address] [id number] [address] [place] [address] Mar, [facility] [address] [id number] [address] [place] [address] Mar, [facility] [address] [id number] [address] [place] [address] Mar, [facility] [address] [id number] [address] [place] [address] Mar, [facility] [address] [id number] [address] [place] [address] February, Schizoaffective disorder, ch ronic 295.72 [facility] [address] [id number] [address] [place] [address] February, [facility] [address] [id number] [address] [place] [address] February, Attention 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 ; Posttraumatic stress disorder 309.81 and Schizoaffective disorder, chronic 295.72 [facility] [address] [id number] [address] [place] [address] Jan, [facility] [address] [id number] [address] [place] [address] Jan, [facility] [address] [id number] [address] [place] [address] Jan, [facility] [address] [id number] [address] [place] [address] Dec, [facility] [address] [id number] [address] [place] [address], [place] [address] Dec, [facility] [address] [id number] [address] [place] [address], [place] [address] Dec, [facility] [address] [id number] [address] [place] [address], [place] [address] Dec, [facility] [address] [id number] [address] [place] [address], [place] [address] Dec, [facility] [address] [id number] [address] [place] [address], [place] [address] Dec, [facility] [address] [id number] [address] [place] [address], [place] [address] Dec, [facility] [address] [id number] [address] [place] [address], [place] [address] Dec, [facility] [address] [id number] [address] [place] [address], [place] [address] Nov, [facility] [address] [id number] [address] [place] [address], [place] [address] Nov, [facility] [address] [id number] [address] [place] [address], [place] [address] Nov, [facility] [address] [id number] [address] [place] [address], [place] [address] Nov, 2014 [facility] [address] [id number] [address] [place] [address], [place] [address] Nov, 2014 [facility] [address] [id number] [address] [place] [address], [place] [address] Nov, 2014 [facility] [address] [id number] [address] [place] [address], [place] [address] Nov, 2014 [facility] [address] [id number] [address] [place] [address], [place] [address] Nov, 2014 [facility] [address] [id number] [address] [place] [address], [place] [address] Nov, [facility] [address] [id number] [address] [place] [address], [place] [address] Nov, [facility] [address] [id number] [address] [place] [address], [place] [address] Oct, [facility] [address] [id number] [address] [place] [address], [place] [address] Oct, [facility] [address] [id number] [address] [place] [address], [place] [address] Oct, [facility] [address] [id number] [address] [place] [address], [place] [address] Oct, [facility] [address] [id number] [address] [place] [address], [place] [address] Oct, [facility] [address] [id number] [address] [place] [address], [place] [address] Oct, [facility] [address] [id number] [address] [place] [address], [place] [address] Oct, [facility] [address] [id number] [address] [place] [address], [place] [address] 17 Sep, 2014 [facility] [address] [id number] [address] [place] [address], [place] [address] 17 Sep, 2014 [facility] [address] [id number] [address] [place] [address], [place] [address] 15 Sep, 2014 [facility] [address] [id number] [address] [place] [address], [place] [address] 15 Sep, 2014 [facility] [address] [id number] [address] [place] [address], [place] [address] 20 Aug, 2014 [facility] [address] [id number] [address] [place] [address], [place] [address] 20 Aug, 2014 [facility] [address] [id number] [address] [place] [address], [place] [address] Aug, [facility] [address] [id number] [address] [place] [address], [place] [address] Aug, [facility] [address] [id number] [address] [place] [address], [place] [address] Aug, [facility] [address] [id number] [address] [place] [address], [place] [address] Aug, [facility] [address] [id number] [address] [place] [address], [place] [address] Jul, [facility] [address] [id number] [address] [place] [address], [place] [address] Jul, [facility] [address] [id number] [address] [place] [address], [place] [address] Jul, [facility] [address] [id number] [address] [place] [address], [place] [address] Jul, [facility] [address] [id number] [address] [place] [address], [place] [address] Jul, [facility] [address] [id number] [address] [place] [address], [place] [address] 15 Jul, 2014 [facility] [address] [id number] [address] [place] [address], [place] [address] 27 Jun, 2014 [facility] [address] [id number] [address] [place] [address], [place] [address] 27 Jun, 2014 [facility] [address] [id number] [address] [place] [address], [place] [address] 26 Jun, 2013 [facility] [address] [id number] [address] [place] [address], [place] [address] 26 Jun, 2014 [facility] [address] [id number] [address] [place] [address], [place] [address] 26 Jun, 2013 [facility] [address] [id number] [address] [place] [address], [place] [address] 26 Jun, 2013 [facility] [address] [id number] [facility] [place] [address] 16 Jun, 2013 [facility] [address] [id number] [address] [place] [address], [place] [address] 16 Jun, 2013 [facility] [address] [id number] [facility] [place] [address] Jun, 2013 [facility] [address] [id number] [address] [place] [address], [place] [address] Jun, 2013 [facility] [address] [id number] [address] [place] [address], [place] [address] Jun, [facility] [address] [id number] [address] [place] [address], [place] [address] May, [facility] [address] [id number] [address] [place] [address], [place] [address] May, [facility] [address] [id number] [address] [place] [address], [place] [address] May, [facility] [address] [id number] [address] [place] [address], [place] [address] May, [facility] [address] [id number] [address] [place] [address], [place] [address] May, [facility] [address] [id number] [address] [place] [address], [place] [address] May, [facility] [address] [id number] [address] [place] [address], [place] [address] May, [facility] [address] [id number] [address] [place] [address], [place] [address] May, [facility] [address] [id number] [address] [place] [address], [place] [address] May, [facility] [address] [id number] [address] [place] [address], [place] [address] May, [facility] [address] [id number] [address] [place] [address], [place] [address] Apr, [facility] [address] [id number] [address] [place] [address], [place] [address] Apr, [facility] [address] [id number] [address] [place] [address], [place] [address] Apr, [facility] [address] [id number] [address] [place] [address], [place] [address] Apr, [facility] [address] [id number] [address] [place] [address], [place] [address] Apr, [facility] [address] [id number] [address] [place] [address], [place] [address] Apr, [facility] [address] [id number] [address] [place] [address], [place] [address] Apr, [facility] [address] [id number] [address] [place] [address], [place] [address] Apr, [facility] [address] [id number] [address] [place] [address], [place] [address] Apr, [facility] [address] [id number] [address] [place] [address], [place] [address] Apr, [facility] [address] [id number] [address] [place] [address], [place] [address] Mar, [facility] [address] [id number] [address] [place] [address], [place] [address] Mar, [facility] [address] [id number] [address] [place] [address], [place] [address] Mar, [facility] [address] [id number] [address] [place] [address], [place] [address] Mar, [facility] [address] [id number] [address] [place] [address], [place] [address] Mar, [facility] [address] [id number] [address] [place] [address], [place] [address] Mar, [facility] [address] [id number] [address] [place] [address], [place] [address] 18 Mar, 2014 [facility] [address] [id number] [facility] [place] [address] Mar, [facility] [address] [id number] [address] [place] [address], [place] [address] 16 Mar, 2014 [facility] [address] [id number] [address] [place] [address], [place] [address] Mar, [facility] [address] [id number] [address] [place] [address], [place] [address] Mar, [facility] [address] [id number] [address] [place] [address], [place] [address] Mar, [facility] [address] [id number] [address] [place] [address], [place] [address] Mar, [facility] [address] [id number] [address] [place] [address], [place] [address] Mar, [facility] [address] [id number] [address] [place] [address], [place] [address] Mar, [facility] [address] [id number] [address] [place] [address], [place] [address] Mar, [facility] [address] [id number] [address] [place] [address], [place] [address] Mar, [facility] [address] [id number] [address] [place] [address], [place] [address] Mar, [facility] [address] [id number] [address] [place] [address], [place] [address] Mar, [facility] [address] [id number] [address] [place] [address], [place] [address] Mar, [facility] [address] [id number] [address] [place] [address], [place] [address] February, [facility] [address] [id number] [address] [place] [address], [place] [address] February, [facility] [address] [id number] [address] [place] [address] February, [facility] [address] [id number] [address] [place] [address] February, [facility] [address] [id number] [address] [place] [place] [address] February, [facility] [address] [id number] [address] [place] [place] [address] February, [facility] [address] [id number] [address] [place] [address] February, [facility] [address] [id number] [address] [place] [address], [place] [address] February, [facility] [address] [id number] [address] [place] [address], [place] [address] February, [facility] [address] [id number] [address] [place] [address], [place] [address] February, [facility] [address] [id number] [address] [place] [address], [place] [address] February, [facility] [address] [id number] [address] [place] [address], [place] [address] February, [facility] [address] [id number] [address] [place] [address], [place] [address] February, [facility] [address] [id number] [address] [place] [address], [place] [address] February, [facility] [address] [id number] [address] [place] [address], [place] [address] February, [facility] [address] [id number] [address] [place] [address], [place] [address] February, [facility] [address] [id number] [address] [place] [address], [place] [address] February, [facility] [address] [id number] [address] [place] [address], [place] [address] February, [facility] [address] [id number] [address] [place] [address], [place] [address] February, [facility] [address] [id number] [address] [place] [address], [place] [address] February, [facility] [address] [id number] [address] [place] [address], [place] [address] February, [facility] [address] [id number] [address] [place] [address], [place] [address] Jan, [facility] [address] [id number] [address] [place] [address], [place] [address] Jan, [facility] [address] [id number] [address] [place] [address], [place] [address] Jan, [facility] [address] [id number] [address] [place] [address], [place] [address] Jan, [facility] [address] [id number] [address] [place] [address], [place] [address] Jan, [facility] [address] [id number] [address] [place] [address], [place] [address] Jan, [facility] [address] [id number] [address] [place] [address], [place] [address] Jan, [facility] [address] [id number] [address] [place] [address], [place] [address] Jan, [facility] [address] [id number] [address] [place] [address], [place] [address] Dec, [facility] [address] [id number] [address] [place] [address], [place] [address] Dec, [facility] [address] [id number] [address] [place] [address], [place] [address] Dec, [facility] [address] [id number] [address] [place] [address], [place] [address] Dec, [facility] [address] [id number] [address] [place] [address], [place] [address] 19 Dec, 2013 [facility] [address] [id number] [address] [place] [address], [place] [address] 15 Dec, 2013 [facility] [address] [id number] [address] [place] [address], [place] [address] 15 Dec, 2013 [facility] [address] [id number] [address] [place] [address], [place] [address] 11 Dec, 2013 [facility] [address] [id number] [address] [place] [address], [place] [address] 10 Dec, 2013 [facility] [address] [id number] [address] [place] [address], [place] [address] 10 Dec, 2013 [facility] [address] [id number] [address] [place] [address], [place] [address] 18 Nov, 2013 [facility] [address] [id number] [address] [place] [address], [place] [address] 17 Nov, 2013 [facility] [address] [id number] [address] [place] [address], [place] [address] 17 Nov, 2013 [facility] [address] [id number] [address] [place] [address], [place] [address] 05 Nov, 2013 [facility] [address] [id number] [address] [place] [address], [place] [address] 05 Nov, 2013 [facility] [address] [id number] [address] [place] [address], [place] [address] Oct, [facility] [address] [id number] [address] [place] [address], [place] [address] Oct, [facility] [address] [id number] [address] [place] [address], [place] [address] Oct, [facility] [address] [id number] [address] [place] [address], [place] [address] Sep, [facility] [address] [id number] [address] [place] [address], [place] [address] Sep, [facility] [address] [id number] [address] [place] [address], [place] [address] Sep, [facility] [address] [id number] [address] [place] [address], [place] [address] Sep, [facility] [address] [id number] [address] [place] [address], [place] [address] Aug, [facility] [address] [id number] [address] [place] [address], [place] [address] Aug, [facility] [address] [id number] [address] [place] [address], [place] [address] Jul, [facility] [address] [id number] [address] [place] [address], [place] [address] Jul, [facility] [address] [id number] [address] [place] [address], [place] [address] Jul, [facility] [address] [id number] [address] [place] [address], [place] [address] Jul, [facility] [address] [id number] [address] [place] [address], [place] [address] Jul, [facility] [address] [id number] [address] [place] [address] 25 Jun, 2013 [facility] [address] [id number] [address] [place] [address] 25 Jun, 2013 [facility] [address] [id number] [address] [place] [address] 19 Sep, 2012 [facility] [address] [id number] [address] [place] [address], [place] [address] 18 Sep, 2012 [facility] [address] [id number] [address] [place] [address], [place] [address] 16 Sep, 2012 [facility] [address] [id number] [address] [place] [address] 12 Sep2012 [facility] [address] [id number] [address] [place] [address] Jun, [facility] [address] [id number] [address] [place] [address], [place] [address] May, [facility] [address] [id number] [address] [place] [address], [place] [address] May, [facility] [address] [id number] [address] [place] [address], [place] [address] Apr, [facility] [address] [id number] [address] [place] [address], [place] [address] Apr, [facility] [address] [id number] [address] [place] [address], [place] [address] Apr, [facility] [address] [id number] [address] [place] [address], [place] [address] Mar, [facility] [address] [id number] [address] [place] [address], [place] [address] Mar, [facility] [address] [id number] [address] [place] [address], [place] [address] February, [facility] [address] [id number] [address] [place] [address], [place] [address] February, [facility] [address] [id number] [address] [place] [address], [place] [address] February, [facility] [address] [id number] [address] [place] [address], [place] [address] February, [facility] [address] [id number] [address] [place] [address], [place] [address] Jan, [facility] [address] [id number] [address] [place] [address], [place] [address] 17 Jan, 2013 [facility] [address] [id number] [address] [place] [address], [place] [address] 16 Jan, 2013 [facility] [address] [id number] [address] [place] [address], [place] [address] Dec, [facility] [address] [id number] [address] [place] [address], [place] [address] Dec, [facility] [address] [id number] [address] [place] [address], [place] [address] Dec, [facility] [address] [id number] [address] [place] [address], [place] [address] Dec, [facility] [address] [id number] [address] [place] [address], [place] [address] Nov, [facility] [address] [id number] [address] [place] [address], [place] [address] Nov, [facility] [address] [id number] [address] [place] [address], [place] [address] Oct, [facility] [address] [id number] [address] [place] [address], [place] [address] Oct, [facility] [address] [id number] [address] [place] [address], [place] [address] Oct, [facility] [address] [id number] [address] [place] [address], [place] [address] Oct, [facility] [address] [id number] [address] [place] [address], [place] [address] Aug, [facility] [address] [id number] [address] [place] [address], [place] [address] Aug, [facility] [address] [id number] [address] [place] [address], [place] [address] Jun, [facility] [address] [id number] [address] [place] [address], [place] [address] May, [facility] [address] [id number] [address] [place] [address], [place] [address] May, [facility] [address] [id number] [address] [place] [address], [place] [address] Apr, [facility] [address] [id number] [address] [place] [address], [place] [address] Apr, [facility] [address] [id number] [address] [place] [address], [place] [address] 05 Apr, 2012 [facility] [address] [id number] [address] [place] [address], [place] [address] Mar, [facility] [address] [id number] [address] [place] [address], [place] [address] Mar, [facility] [address] [id number] [address] [place] [address], [place] [address] Mar, [facility] [address] [id number] [address] [place] [address], [place] [address] Mar, [facility] [address] [id number] [address] [place] [address], [place] [address] Mar, [facility] [address] [id number] [address] [place] [address], [place] [address] February, [facility] [address] [id number] [address] [place] [address], [place] [address] February, [facility] [address] [id number] [address] [place] [address], [place] [address] February, [facility] [address] [id number] [address] [place] [address], [place] [address] February, [facility] [address] [id number] [address] [place] [address], [place] [address] February, [facility] [address] [id number] [address] [place] [address], [place] [address] February, [facility] [address] [id number] [address] [place] [address], [place] [address] February, [facility] [address] [id number] [address] [place] [address], [place] [address] Jan, [facility] [address] [id number] [address] [place] [address], [place] [address] Jan, [facility] [address] [id number] [address] [place] [address], [place] [address] 17 Jan, 2012 [facility] [address] [id number] [address] [place] [address], [place] [address] 13 Jan, 2012 [facility] [address] [id number] [address] [place] [address], [place] [address] 10 Jan, 2012 [facility] [address] [id number] [address] [place] [address], [place] [address] 04 Jan, 2012 [facility] [address] [id number] [address] [place] [address], [place] [address] 30 Dec, 2011 [facility] [address] [id number] [address] [place] [address], [place] [address] 24 Dec, 2011 [facility] [address] [id number] [address] [place] [address], [place] [address] 20 Dec, 2011 [facility] [address] [id number] [address] [place] [address], [place] [address] 13 Dec, 2011 [facility] [address] [id number] [address] [place] [address], [place] [address] 06 Dec, 2011 [facility] [address] [id number] [address] [place] [address], [place] [address] 28 Nov, 2011 [facility] [address] [id number] [address] [place] [address], [place] [address] 27 Nov, 2011 [facility] [address] [id number] [address] [place] [address], [place] [address] 25 Nov, 2011 [facility] [address] [id number] [address] [place] [address], [place] [address] 14 Nov, 2011 [facility] [address] [id number] [address] [place] [address], [place] [address] 10 Nov, 2011 [facility] [address] [id number] [address] [place] [address], [place] [address] Nov, [facility] [address] [id number] [address] [place] [address], [place] [address] Oct, [facility] [address] [id number] [address] [place] [address], [place] [address] Oct, [facility] [address] [id number] [address] [place] [address], [place] [address] Oct, [facility] [address] [id number] [address] [place] [address], [place] [address] Oct, [facility] [address] [id number] [address] [place] [address], [place] [address] Oct, [facility] [address] [id number] [address] [place] [address], [place] [address] Sep, [facility] [address] [id number] [address] [place] [address], [place] [address] Sep, [facility] [address] [id number] [address] [place] [address], [place] [address] Sep, [facility] [address] [id number] [address] [place] [address], [place] [address] Sep, [facility] [address] [id number] [address] [place] [address], [place] [address] Sep, [facility] [address] [id number] [address] [place] [address], [place] [address] Sep, [facility] [address] [id number] [address] [place] [address], [place] [address] Sep, [facility] [address] [id number] [address] [place] [address], [place] [address] Sep, [facility] [address] [id number] [address] [place] [address], [place] [address] Sep, [facility] [address] [id number] [address] [place] [address], [place] [address] Aug, [facility] [address] [id number] [address] [place] [address], [place] [address] Aug, [facility] [address] [id number] [address] [place] [address], [place] [address] Aug, [facility] [address] [id number] [address] [place] [address], [place] [address] Aug, [facility] [address] [id number] [address] [place] [address], [place] [address] Aug, [facility] [address] [id number] [address] [place] [address], [place] [address] Aug, [facility] [address] [id number] [address] [place] [address], [place] [address] Aug, [facility] [address] [id number] [address] [place] [address], [place] [address] Aug, [facility] [address] [id number] [address] [place] [address], [place] [address] Aug, [facility] [address] [id number] [address] [place] [address], [place] [address] Aug, [facility] [address] [id number] [address] [place] [address], [place] [address] Aug, [facility] [address] [id number] [address] [place] [address], [place] [address] Aug, [facility] [address] [id number] [address] [place] [address], [place] [address] Jul, [facility] [address] [id number] [address] [place] [address], [place] [address] Jul, [facility] [address] [id number] [address] [place] [address], [place] [address] Jul, [facility] [address] [id number] [address] [place] [address], [place] [address] Jul, [facility] [address] [id number] [address] [place] [address], [place] [address] Jul, [facility] [address] [id number] [address] [place] [address], [place] [address] Jul, [facility] [address] [id number] [address] [place] [address] Jul, [facility] [address] [id number] [address] [place] [address] Jul, [facility] [address] [id number] [address] [place] [address] Jul, [facility] [address] [id number] [address] [place] [address] Jul, [facility] [address] [id number] [address] [place] [address] Nov, [facility] [address] [facility] [id number] [address] [place] [address] Aug, [facility] [address] [facility] [id number] [address] [place] [address] Aug, [facility] [address] [facility] [id number] [address] [place] [address] Aug, [facility] [address] [facility] [id number] [address] [place] [address] Aug, [facility] [address] [facility] [id number] [address] [place] [address] Jul, IMMUNIZATIONS No Known Immunizations SOCIAL HISTORY [...] attempt by hanging 2015 Hospitalization History [facility] 01/30/2018-02/10/20 08 Hospitalization History [facility] 05/04/18-7/ 17/18 [facility]
--- OUTSIDE RECORDS SUMMARY | 2020-04-04 02:25 | XMS REPORT ---
Author Author SILVERIO Kaila REGAN 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 47353427 Problem Posttraumatic stress disorder F43.10 Active 67355092 Problem High risk medication use Z79.899 Activ e [id number] ALLERGIES Substance Reaction Event Type Date Status Biaxin bronchospasm Drug Allergy Dec, Active Cymbalta 30 Mg Capsule, Delayed Release(e.c.) nausea No n Drug Allergy Dec, Active Brintellix 10 Mg Tablet nausea and vomiting Non Drug Allergy Dec Active Latuda agitation Drug Allergy Dec, Active Penicillamine bronchospasm and rash Drug Allergy Dec, Activ e Cephalexin visual disturbances Drug Allergy Dec, Active Ceftin visual disturbance Drug Allergy Dec, Active Rossie agitation/homicidal Drug Allergy Dec, Active ENCOUNTERS Encounter Location Date Diagnosis [facility] [address] [facility] [id number] [address] [place] [phone] Jan, [facility] [address] [facility] [id number] [address] [place] [phone] Jan, [facility] [address] [facility] [id number] [address] [place] [phone] Jan, [facility] [address] [facility] [id number] [address] [place] [phone] Jan, [facility] [address] [facility] [id number] [address] [place] [phone] Jan, 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 [address] [facility] [id number] [address] [place] [address] Nov, 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 [address] [facility] [id number] [address] [place] [phone] Oct, 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 [address] [id number] [address] [place] [phone] Aug, [facility] [address] [facility] [id number] [address] [place] [id number] Aug, Acute bronchitis, unspecifie d organism J20.9 [facility] [address] [id number] [address] [place] [phone] Aug, [facility] [address] [facility] [id number] [address] [place] [phone] Aug, 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 [address] [facility] [id number] [address] [place] [id number] Jul, 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 [address] [facility] [id number] [address] [place] [phone] Apr, Paranoid schizophrenia F20.0 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 [address] [facility] [id number] [address] [place] [address] Mar, Paranoid schizophrenia F20.0 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 [address] [facility] [id number] [address] [place] [address] February, Paranoid schizophrenia F20.0 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 [address] [facility] [id number] [address] [place] [id number] Aug, 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 [address] [facility] [id number] [address] [place] [address] Jul, [facility] [address] [facility] [id number] [address] [place] [address] Jul, Paranoid schizophrenia F20.0 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 [address] [facility] [id number] [address] [place] [address] May, [facility] [address] [id number] [place] [address] May, Paranoid schizophrenia F20.0 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 [address] [id number] [address] [place] [address], [place] [address] Apr, 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 [address] [id number] [address] [place] [phone] Apr, [facility] [address] [id number] [address] [place] [address] Apr, Schizoaffective disorder, de pressive type F25.1 and Borderline personality disorder F60.3 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 [address] [id number] [address] [place] [address] Apr, 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 [address] [id number] [address] [place] [phone] Apr, [facility] [address] [id number] [address] [place] [address] Mar, Paranoid schizophrenia F20.0 [facility] [address] [id number] [address] [place] [address] Mar, 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 [address] [id number] [address] [place] [phone] February, Paranoid schizophrenia F20.0 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 [address] [id number] [address] [place] [address] February, [facility] [address] [id number] [address] [place] [address] February, Paranoid schizophrenia F20.0 [facility] [address] [id number] [address] [place] [address] February, Paranoid schizophrenia F20.0 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 [address] [id number] [address] [place] [phone] Jan, Paranoid schizophrenia F20.0 [facility] [address] [id number] [address] [place] [address] Jan, Paranoid schizophrenia F20.0 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 [address] [id number] [address] [place] [phone] Dec, 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 [address] [id number] [address] [place] [address] Nov, [facility] [address] [id number] [address] [place] [address] Oct, Paranoid schizophrenia F20.0 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 [address] [id number] [address] [place] [address] Oct, [facility] [address] [id number] [address] [place] [address] Oct, [facility] [address] [id number] [address] [place] [address] Sep, 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 [address] [facility] [id number] [address] [place] [address] Sep, Paranoid schizophrenia F20.0 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 [address] [id number] [address] [place] [address] Aug, 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 [address] [id number] [address] [place] [address] Jul, Paranoid schizophrenia F20.0 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 [address] [id number] [address] [place] [address] May, [facility] [address] [id number] [address] [place] [address] May, [facility] [address] [id number] [address] [place] [address] May, Attention deficit hyperactiv ity disorder (ADHD), inattentive type, 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 [address] [id number] [address] [place] [address] May, [facility] [address] [id number] [address] [place] [address] May, Attention deficit hyperactiv ity disorder (ADHD), inattentive type, 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 [address] [id number] [address] [place] [address] Apr, Paranoid schizophrenia F20.0 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 [address] [id number] [address] [place] [address] February, 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 [address] [id number] [address] [place] [address] Nov, High risk medication use Z79 .899 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 [address] [id number] [address] [place] [phone] Aug, 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 [address] [id number] [address] [place] [address] Jul, 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 [address] [id number] [address] [place] [address] Jun, [facility] [address] [id number] [address] [place] [address] May, Paranoid schizophrenia F20.0 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 [address] [id number] [address] [place] [address] May, [facility] [address] [id number] [address] [place] [address] May, Paranoid schizophrenia F20.0 [facility] [address] [id number] [address] [place] [address] May, [facility] [address] [id number] [address] [place] [address] May, Paranoid schizophrenia F20.0 [facility] [address] [id number] [address] [place] [address] May, Schizoaffective disorder, un specified F25.9 [facility] [address] [id number] [address] [place] [address] May, Schizoaffective disorder, un specified F25.9 [facility] [address] [id number] [address] [place] [address] May, [facility] [address] [id number] [address] [place] [address] May, Paranoid schizophrenia F20.0 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 [address] [id number] [address] [place] [address] Mar, 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 [address] [id number] [address] [place] [address] Mar, Paranoid schizophrenia F20.0 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 [address] [id number] [address] [place] [address] Mar, 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 [address] [id number] [address] [place] [address] February, [facility] [address] [id number] [address] [place] [address] February, [facility] [address] [id number] [address] [place] [address] February, [facility] [address] [id number] [address] [place] [address] February, [facility] [address] [id number] [address] [place] [address] Jan, Paranoid schizophrenia F20.0 [facility] [address] [id number] [address] [place] [address] [id number] Jan, Dental examination Z01.20 [facility] [address] [id number] [address] [place] [address] [id number] Jan, Dental caries K02.9 [facility] [address] [id number] [address] [place] [id number] Jan, Dental examination Z01.20 [facility] [address] [id number] [address] [place] [address] [id number] Dec, Encounter for dental examina tion Z01.20 [facility] [address] [id number] [address] [place] [address] Dec, Paranoid schizophrenia F20.0 [facility] [address] [id number] [address] [place] [address] [id number] Dec, Dental examination Z01.20 [facility] [address] [id number] [address] [place] [address] Dec, 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 [address] [id number] [address] [place] [address] Nov, Schizoaffective disorder, un specified F25.9 [facility] [address] [id number] [address] [place] [id number] Oct, Paranoid schizophrenia F20.0 [facility] [address] [id number] [address] [place] [address] Oct, 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 [address] [facility] [id number] [address] [place] [address] Sep, 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 [address] [facility] [id number] [address] [place] [address] Aug, Paranoid schizophrenia F20.0 [facility] [address] [facility] [id number] [address] [place] [address] Aug, 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 [address] [facility] [id number] [address] [place] [address] Jul, Bipolar disorder, unspecifie d F31.9 [facility] [address] [facility] [id number] [address] [place] [address] Jul, [facility] [address] [facility] [id number] [address] [place] [address] Jun, [facility] [address] [facility] [id number] [address] [place] [address] Jun, Schizoaffective disorder, ch ronic 295.72 ; Posttraumatic stress disorder 309.81 and Attention deficit disorder of childhood without mention of hyperactivity 314.00 [facility] [address] [facility] [id number] [address] [place] [address] May, [facility] [address] [facility] [id number] [address] [place] [phone] May, [facility] [address] [facility] [id number] [address] [place] [address] May, Schizoaffective disorder, ch ronic 295.72 ; Posttraumatic stress disorder 309.81 ; Attention deficit disorder of childhood without mention of hyperactivity 314.00 and Bipolar disorder, unspecified 296.80 [facility] [address] [facility] [id number] [address] [place] [address] Apr, Schizoaffective disorder, ch ronic 295.72 [facility] [address] [facility] [id number] [address] [place] [address] Apr, [facility] [address] [id number] [address] [place] [address] Apr, Schizoaffective disorder, ch ronic 295.72 ; Posttraumatic stress disorder 309.81 and Attention deficit disorder of childhood without mention of hyperactivity 314.00 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 [address] [facility] [id number] [address] [place] [address] Mar, [facility] [address] [facility] [id number] [address] [place] [address] Mar, [facility] [address] [facility] [id number] [address] [place] [address] Mar, [facility] [address] [facility] [id number] [address] [place] [address] Mar, [facility] [address] [facility] [id number] [address] [place] [address] February, Schizoaffective disorder, ch ronic 295.72 [facility] [address] [id number] [address] [place] [address] February, [facility] [address] [facility] [id number] [address] [place] [address] February, Attention 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 ; Posttraumatic stress disorder 309.81 and Schizoaffective disorder, chronic 295.72 [facility] [place] [facility] [address] [id number] [address] [place] [address], [place] [address] 29 Jan, 2015 [facility] [address] [id number] [address] [place] [address], [place] [address] 14 Jan, 2015 [facility] [place] [facility] [address] [id number] [address] [place] [address], [place] [address] Jan, [facility] [place] [facility] [address] [id number] [address] [place] [address], [place] [address] Dec, [facility] [place] [facility] [address] [id number] [address] [place] [address], [place] [address] Dec, [facility] [place] [facility] [address] [id number] [address] [place] [address], [place] [address] Dec, [facility] [place] [facility] [address] [id number] [address] [place] [address], [place] [address] Dec, [facility] [place] [facility] [address] [id number] [address] [place] [address], [place] [address] Dec, [facility] [address] [id number] [address] [place] [address], [place] [address] Dec, [facility] [place] [facility] [address] [id number] [address] [place] [address], [place] [address] Dec, [facility] [address] [id number] [address] [place] [address], [place] [address] Dec, [facility] [place] [facility] [address] [id number] [address] [place] [address], [place] [address] Nov, [facility] [place] [facility] [address] [id number] [address] [place] [address], [place] [address] Nov, [facility] [place] [facility] [address] [id number] [address] [place] [address], [place] [address] Nov, [facility] [place] [facility] [address] [id number] [address] [place] [address], [place] [address] Nov, [facility] [place] [facility] [address] [id number] [address] [place] [address], [place] [address] Nov, [facility] [address] [id number] [address] [place] [address], [place] [address] Nov, [facility] [address] [id number] [address] [place] [address], [place] [address] Nov, [facility] [address] [id number] [address] [place] [address], [place] [address] Nov, [facility] [address] [id number] [address] [place] [address], [place] [address] Nov, [facility] [address] [id number] [address] [place] [address], [place] [address] Nov, [facility] [address] [id number] [address] [place] [address], [place] [address] Oct, [facility] [address] [id number] [address] [place] [address], [place] [address] Oct, [facility] [address] [id number] [address] [place] [address], [place] [address] Oct, [facility] [address] [id number] [address] [place] [address], [place] [address] Oct, [facility] [address] [id number] [address] [place] [address], [place] [address] Oct, [facility] [address] [id number] [address] [place] [address], [place] [address] Oct, [facility] [address] [id number] [address] [place] [address], [place] [address] Oct, [facility] [address] [id number] [address] [place] [address], [place] [address] Sep, [facility] [address] [id number] [address] [place] [address], [place] [address] Sep, [facility] [address] [id number] [address] [place] [address], [place] [address] Sep, [facility] [place] [facility] [address] [id number] [address] [place] [address], [place] [address] Sep, [facility] [place] [facility] [address] [id number] [address] [place] [address], [place] [address] Aug, [facility] [place] [facility] [address] [id number] [address] [place] [address], [place] [address] Aug, [facility] [place] [facility] [address] [id number] [address] [place] [address], [place] [address] Aug, [facility] [place] [facility] [address] [id number] [address] [place] [address], [place] [address] Aug, [facility] [place] [facility] [address] [id number] [address] [place] [address], [place] [address] Aug, [facility] [place] [facility] [address] [id number] [address] [place] [address], [place] [address] Aug, [facility] [place] [facility] [address] [id number] [address] [place] [address], [place] [address] Jul, [facility] [place] [facility] [address] [id number] [address] [place] [address], [place] [address] Jul, [facility] [place] [facility] [address] [id number] [address] [place] [address], [place] [address] Jul, [facility] [place] [facility] [address] [id number] [address] [place] [address], [place] [address] Jul, [facility] [place] [facility] [address] [id number] [address] [place] [address], [place] [address] Jul, [facility] [place] [facility] [address] [id number] [address] [place] [address], [place] [address] Jul, [facility] [place] [facility] [address] [id number] [address] [place] [address], [place] [address] Jun, [facility] [place] [facility] [address] [id number] [address] [place] [address], [place] [address] 27 Jun, 2014 [facility] [place] [facility] [address] [id number] [address] [place] [address], [place] [address] Jun, 2013 [facility] [address] [id number] [facility] [place] [address] 26 Jun, 2013 [facility] [place] [facility] [address] [id number] [facility] [place] [address] Jun, 2013 [facility] [place] [facility] [address] [id number] [facility] [place] [address] Jun, 2013 [facility] [place] [facility] [address] [id number] [address] [place] [address], [place] [address] 16 Jun, 2013 [facility] [address] [id number] [address] [place] [address], [place] [address] 16 Jun, 2013 [facility] [facility] [address] [id number] [address] [place] [address], [place] [address] Jun, 2013 [facility] [address] [id number] [address] [place] [address], [place] [address] Jun, 2013 [facility] [place] [facility] [address] [id number] [address] [place] [address], [place] [address] Jun, 2013 [facility] [address] [id number] [address] [place] [address], [place] [address] May, [facility] [place] [facility] [address] [id number] [address] [place] [address], [place] [address] May, [facility] [place] [facility] [address] [id number] [address] [place] [address], [place] [address] May, [facility] [place] [facility] [address] [id number] [address] [place] [address], [place] [address] May, [facility] [address] [id number] [address] [place] [address], [place] [address] May, [facility] [place] [facility] [address] [id number] [address] [place] [address], [place] [address] May, [facility] [place] [facility] [address] [id number] [address] [place] [address], [place] [address] May, [facility] [place] [facility] [address] [id number] [address] [place] [address] May, [facility] [address] [id number] [address] [place] [address], [place] [address] May, [facility] [address] [id number] [address] [place] [address], [place] [address] May, [facility] [address] [id number] [address] [place] [address], [place] [address] Apr, [facility] [address] [id number] [address] [place] [address], [place] [address] Apr, [facility] [address] [id number] [address] [place] [address], [place] [address] Apr, [facility] [address] [id number] [address] [place] [address], [place] [address] Apr, [facility] [address] [id number] [address] [place] [address], [place] [address] Apr, [facility] [address] [id number] [address] [place] [address], [place] [address] Apr, [facility] [address] [id number] [address] [place] [address], [place] [address] Apr, [facility] [address] [id number] [address] [place] [address], [place] [address] Apr, [facility] [address] [id number] [address] [place] [address], [place] [address] Apr, [facility] [address] [id number] [address] [place] [address], [place] [address] Apr, [facility] [place] [facility] [address] [id number] [address] [place] [address], [place] [address] Mar, [facility] [place] [facility] [address] [id number] [address] [place] [address], [place] [address] Mar, [facility] [address] [id number] [address] [place] [address], [place] [address] Mar, [facility] [place] [facility] [address] [id number] [address] [place] [address], [place] [address] 24 Mar, 2014 [facility] [place] [facility] [address] [id number] [address] [place] [address], [place] [address] Mar, [facility] [place] [facility] [address] [id number] [address] [place] [address], [place] [address] 18 Mar, 2014 [facility] [place] [facility] [address] [id number] [address] [place] [address], [place] [address] 18 Mar, 2014 [facility] [address] [id number] [address] [place] [address], [place] [address] 16 Mar, 2014 [facility] [address] [id number] [address] [place] [address], [place] [address] Mar, [facility] [address] [id number] [address] [place] [address], [place] [address] Mar, [facility] [address] [id number] [address] [place] [address], [place] [address] Mar, [facility] [address] [id number] [address] [place] [address], [place] [address] Mar, [facility] [address] [id number] [address] [place] [address], [place] [address] Mar, [facility] [address] [id number] [address] [place] [address], [place] [address] Mar, [facility] [address] [id number] [address] [place] [address], [place] [address] Mar, [facility] [address] [id number] [address] [place] [address], [place] [address] Mar, [facility] [address] [id number] [address] [place] [address], [place] [address] Mar, [facility] [address] [id number] [address] [place] [address], [place] [address] 09 Mar, 2014 [facility] [address] [id number] [address] [place] [address], [place] [address] Mar, [facility] [address] [id number] [facility] [place] [address] Mar, [facility] [address] [id number] [address] [place] [address], [place] [address] February, [facility] [address] [id number] [address] [place] [address], [place] [address] February, [facility] [address] [id number] [address] [place] [address], [place] [address] February, [facility] [address] [id number] [address] [place] [address], [place] [address] February, [facility] [address] [id number] [address] [place] [address], [place] [address] February, [facility] [address] [id number] [address] [place] [address], [place] [address] February, [facility] [address] [id number] [address] [place] [address], [place] [address] February, [facility] [address] [id number] [address] [place] [address], [place] [address] February, [facility] [address] [id number] [address] [place] [address], [place] [address] February, [facility] [address] [id number] [address] [place] [address], [place] [address] February, [facility] [address] [id number] [address] [place] [address], [place] [address] February, [facility] [address] [id number] [address] [place] [address], [place] [address] February, [facility] [address] [id number] [address] [place] [address], [place] [address] February, [facility] [address] [id number] [address] [place] [address], [place] [address] February, [facility] [address] [address] [id number] [address] [place] [address], [place] [address] February, [facility] [address] [id number] [address] [place] [address], [place] [address] February, [facility] [address] [id number] [address] [place] [address], [place] [address] February, [facility] [address] [id number] [address] [place] [address], [place] [address] February, [facility] [address] [id number] [address] [place] [address], [place] [address] February, [facility] [address] [id number] [address] [place] [address], [place] [address] February, [facility] [address] [id number] [address] [place] [address], [place] [address] February, [facility] [address] [id number] [address] [place] [address], [place] [address] Jan, [facility] [address] [id number] [address] [place] [address], [place] [address] Jan, [facility] [address] [id number] [address] [place] [address], [place] [address] Jan, [facility] [address] [id number] [address] [place] [address], [place] [address] Jan, [facility] [address] [id number] [address] [place] [address], [place] [address] Jan, [facility] [address] [id number] [address] [place] [address], [place] [address] Jan, [facility] [address] [id number] [address] [place] [address], [place] [address] Jan, [facility] [address] [id number] [address] [place] [address], [place] [address] Jan, [facility] [address] [id number] [address] [place] [address], [place] [address] Dec, [facility] [address] [id number] [facility] [place] [address] 20 Dec, 2013 [facility] [address] [id number] [facility] [place] [address] 20 Dec, 2013 [facility] [address] [id number] [facility] [place] [address] 19 Dec, 2013 [facility] [address] [id number] [address] [place] [address], [place] [address] 19 Dec, 2013 [facility] [address] [id number] [address] [place] [address], [place] [address] 15 Dec, 2013 [facility] [address] [id number] [address] [place] [address], [place] [address] 15 Dec, 2013 [facility] [address] [id number] [address] [place] [address], [place] [address] 11 Dec, 2013 [facility] [address] [id number] [address] [place] [address], [place] [address] 10 Dec, 2013 [facility] [address] [id number] [address] [place] [address], [place] [address] 10 Dec, 2013 [facility] [address] [id number] [address] [place] [address], [place] [address] 18 Nov, 2013 [facility] [address] [id number] [address] [place] [address], [place] [address] 17 Nov, 2013 [facility] [address] [id number] [address] [place] [address], [place] [address] Nov, [facility] [address] [id number] [address] [place] [address], [place] [address] 05 Nov, 2013 [facility] [address] [id number] [address] [place] [address], [place] [address] 05 Nov, 2013 [facility] [address] [id number] [address] [place] [address], [place] [address] Oct, [facility] [address] [id number] [address] [place] [address], [place] [address] Oct, [facility] [address] [id number] [address] [place] [address], [place] [address] Oct, [facility] [address] [id number] [address] [place] [address], [place] [address] Sep, [facility] [address] [id number] [address] [place] [address], [place] [address] Sep, [facility] [address] [id number] [address] [place] [address], [place] [address] Sep, [facility] [address] [id number] [address] [place] [address], [place] [address] Sep, [facility] [address] [id number] [address] [place] [address], [place] [address] Aug, [facility] [address] [id number] [address] [place] [address], [place] [address] Aug, [facility] [address] [id number] [address] [place] [address], [place] [address] Jul, [facility] [address] [id number] [address] [place] [address], [place] [address] Jul, [facility] [address] [id number] [address] [place] [address], [place] [address] Jul, [facility] [address] [id number] [address] [place] [address], [place] [address] Jul, [facility] [address] [id number] [address] [place] [address], [place] [address] Jul, [facility] [address] [id number] [address] [place] [address], [place] [address] Jun, [facility] [address] [id number] [address] [place] [address], [place] [address] Jun, [facility] [address] [id number] [address] [place] [address], [place] [address] Jun, [facility] [address] [id number] [address] [place] [address], [place] [address] 18 Jun, 2013 [facility] [address] [id number] [address] [place] [address], [place] [address] 16 Jun, 2013 [facility] [address] [id number] [address] [place] [address], [place] [address] 12 Jun, 2013 [facility] [address] [id number] [address] [place] [address], [place] [address] 11 Jun, 2013 [facility] [address] [id number] [address] [place] [address], [place] [address] 30 May, 2013 [facility] [address] [id number] [address] [place] [address], [place] [address] May, [facility] [address] [id number] [address] [place] [address], [place] [address] Apr, [facility] [address] [id number] [address] [place] [address], [place] [address] Apr, [facility] [address] [id number] [address] [place] [address], [place] [address] Apr, [facility] [address] [id number] [address] [place] [address], [place] [address] Mar, [facility] [address] [id number] [address] [place] [address], [place] [address] Mar, [facility] [address] [id number] [address] [place] [address], [place] [address] February, [facility] [address] [id number] [address] [place] [address], [place] [address] February, [facility] [address] [id number] [address] [place] [address], [place] [address] February, [facility] [address] [id number] [address] [place] [address], [place] [address] February, [facility] [address] [id number] [address] [place] [address], [place] [address] 19 Jan, 2013 [facility] [address] [id number] [address] [place] [address], [place] [address] 17 Jan, 2013 [facility] [address] [id number] [address] [place] [address], [place] [address] 16 Jan, 2013 [facility] [address] [id number] [address] [place] [address], [place] [address] 29 Dec, 2012 [facility] [address] [id number] [address] [place] [address], [place] [address] Dec, [facility] [address] [id number] [address] [place] [address], [place] [address] Dec, [facility] [address] [id number] [address] [place] [address], [place] [address] Dec, [facility] [address] [id number] [address] [place] [address], [place] [address] Nov, [facility] [address] [id number] [address] [place] [address], [place] [address] Nov, [facility] [address] [id number] [address] [place] [address], [place] [address] Oct, [facility] [address] [id number] [address] [place] [address], [place] [address] Oct, [facility] [address] [id number] [address] [place] [address], [place] [address] Oct, [facility] [address] [id number] [address] [place] [address], [place] [address] Oct, [facility] [address] [id number] [address] [place] [address], [place] [address] Aug, [facility] [address] [id number] [address] [place] [address], [place] [address] Aug, [facility] [address] [id number] [address] [place] [address], [place] [address] 18 Jun, 2012 [facility] [address] [id number] [facility] [place] [address] May, [facility] [address] [id number] [address] [place] [address], [place] [address] May, [facility] [address] [id number] [address] [place] [address], [place] [address] Apr, [facility] [address] [id number] [address] [place] [address], [place] [address] Apr, [facility] [address] [id number] [address] [place] [address], [place] [address] Apr, [facility] [address] [id number] [address] [place] [address], [place] [address] Mar, [facility] [address] [id number] [address] [place] [address], [place] [address] Mar, [facility] [address] [id number] [address] [place] [address], [place] [address] Mar, [facility] [address] [id number] [address] [place] [address], [place] [address] Mar, [facility] [address] [id number] [address] [place] [address], [place] [address] Mar, [facility] [address] [id number] [address] [place] [address], [place] [address] February, [facility] [address] [id number] [address] [place] [address], [place] [address] February, [facility] [address] [id number] [address] [place] [address], [place] [address] February, [facility] [address] [id number] [address] [place] [address], [place] [address] February, [facility] [address] [id number] [address] [place] [address], [place] [address] February, [facility] [address] [id number] [address] [place] [address] [address] February, [facility] [address] [id number] [address] [place] [address], [place] [address] February, [facility] [address] [id number] [address] [place] [address], [place] [address] Jan, [facility] [address] [id number] [address] [place] [address], [place] [address] Jan, [facility] [address] [id number] [address] [place] [address], [place] [address] 17 Jan, 2012 [facility] [address] [id number] [address] [place] [address], [place] [address] Jan, [facility] [address] [id number] [address] [place] [address], [place] [address] Jan, [facility] [address] [id number] [address] [place] [address], [place] [address] Jan, [facility] [address] [id number] [address] [place] [address], [place] [address] 30 Dec, 2011 [facility] [address] [id number] [address] [place] [address], [place] [address] 24 Dec, 2011 [facility] [address] [id number] [address] [place] [address], [place] [address] Dec, [facility] [address] [id number] [address] [place] [address], [place] [address] Dec, [facility] [address] [id number] [address] [place] [address], [place] [address] Dec, [facility] [address] [id number] [address] [place] [address], [place] [address] Nov, [facility] [address] [id number] [address] [place] [address], [place] [address] Nov, [facility] [address] [id number] [address] [place] [address], [place] [address] Nov, [facility] [address] [id number] [address] [place] [address], [place] [address] 14 Nov, 2011 [facility] [address] [id number] [address] [place] [address], [place] [address] 10 Nov, 2011 [facility] [address] [id number] [address] [place] [address], [place] [address] Nov, [facility] [address] [id number] [address] [place] [address], [place] [address] Oct, [facility] [address] [id number] [address] [place] [address], [place] [address] Oct, [facility] [address] [id number] [address] [place] [address], [place] [address] Oct, [facility] [address] [id number] [address] [place] [address], [place] [address] Oct, [facility] [address] [id number] [address] [place] [address], [place] [address] Oct, [facility] [address] [id number] [address] [place] [address], [place] [address] Sep, [facility] [address] [id number] [address] [place] [address], [place] [address] Sep, [facility] [address] [id number] [address] [place] [address], [place] [address] Sep, [facility] [address] [id number] [address] [place] [address], [place] [address] 14 Sep, 2011 [facility] [address] [id number] [address] [place] [address], [place] [address] 14 Sep, 2011 [facility] [address] [id number] [address] [place] [address], [place] [address] Sep, [facility] [address] [id number] [address] [place] [address], [place] [address] Sep, [facility] [address] [id number] [address] [place] [address], [place] [address] Sep, [facility] [address] [id number] [address] [place] [address], [place] [address] Sep, [facility] [address] [id number] [address] [place] [address], [place] [address] Aug, [facility] [address] [id number] [address] [place] [address], [place] [address] Aug, [facility] [address] [id number] [address] [place] [address], [place] [address] Aug, [facility] [address] [id number] [address] [place] [address], [place] [address] Aug, [facility] [address] [id number] [address] [place] [address], [place] [address] Aug, [facility] [address] [id number] [address] [place] [address], [place] [address] Aug, [facility] [address] [id number] [address] [place] [address], [place] [address] Aug, [facility] [address] [id number] [address] [place] [address], [place] [address] Aug, [facility] [address] [id number] [address] [place] [address] Aug, [facility] [address] [id number] [address] [place] [address] Aug, [facility] [address] [id number] [address] [place] [address] Aug, [facility] [address] [id number] [address] [place] [address], [place] [address] Aug, [facility] [address] [id number] [address] [place] [address] Jul, [facility] [address] [id number] [address] [place] [address], [place] [address] Jul, [facility] [address] [id number] [address] [place] [address] Jul, [facility] [address] [id number] [address] [place] [address] Jul, [facility] [address] [id number] [address] [place] [address] Jul, [facility] [address] [id number] [address] [place] [address] Jul, [facility] [address] [id number] [address] [place] [address] Jul, [facility] [address] [id number] [address] [place] [address] Jul, [facility] [address] [id number] [address] [place] [address] Jul, [facility] [address] [id number] [address] [place] [address] Jul, [facility] [address] [id number] [address] [place] [address] Nov, [facility] [address] [id number] [address] [place] [address] Aug, [facility] [address] [id number] [address] [place] [address] Aug, [facility] [address] [id number] [address] [place] [address] Aug, [facility] [address] [id number] [address] [place] [address] Aug, [facility] [address] [id number] [address] [place] [address] Jul, IMMUNIZATIONS No Known Immunizations SOCIAL HISTORY Never Assessed REASON FOR VISIT LIANA f/olivier- haja rebollar, AIMS and labs PLAN OF CARE Activity Details Follow Up 4 Weeks Reason:LIANA f/olivier VITAL SIGNS Height 65.75 in 2019-01-15 Weight 200 lbs 2019-01-15 Heart Rate 97 bpm 2019-01-15 Respiratory Rate 20 2019-01-15 BMI 32.52 kg/m2 2019-01-15 Blood pressure systolic 128 mmHg 2019-01-15 Blood pressure diastolic 90 mmHg 2019-01-15 MEDICATIONS Medication Instructions Dosage Frequency Start Date End Date Duration S arley Cyproheptadine HCl 7.5 MG Orally Twice a day 1 tablet 12h Active Tresiba FlexTouch 100 UNIT/ML as directed Active Levothyroxine Sodium 75 MCG Orally Once a day 1 tablet on an empty stomach in the morning 24h Active Trintellix 20 mg orally Once a day 1 tablet 24h Active Intuniv 2 MG Orally Once a day 1 tablet 24h Active Trulicity 0.75 MG/0.5ML Active Trihexyphenidyl HCl 2 MG Orally at bedtime /2 tablet Dec 30 day(s) Active Hydrocodone-Acetaminophen 10-325 mg 1 Ta blet by Oral route every 8 hours PRN pain Jul, Not-Taking Ventolin HFA 90 MCG/ACT Inhalation every 6 hrs 2 puffs as needed 6h Active Levemir 100 UNIT/ML Subcutaneous at bedtime 70 units Not-Taking Invega 6 MG Orally 2 times a day 1 tablet 12h Oct, 3 0 days Active NovoLog Mix 70/30 100 UNIT/ML Flex Pen Subcutaneous 3 times a day 27 units 8h Active Topamax 100 mg Orally Twice a day TAKE ONE AND ONE-MENDEL F TABLETS BY MOUTH TWICE A DAY 12h Active Touregano SoloStar 72 units Not-Taking Guanfacine HCl 1 MG Orally Once a day 1 tablet in morning 24h Active RESULTS No Results PROCEDURES No [...] attempt by hanging 2015 Hospitalization History [facility] 01/30/2018-02/10/20 08 Hospitalization History [facility] 05/04/18- [facility] History [facility] 5 days
--- OUTSIDE RECORDS SUMMARY | 2020-04-04 02:26 | XMS REPORT ---
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 Name Role Phone BRYAN Roca Unavailable PROBLEMS Type Condition ICD9-CM Code [id number] Code Onset Dates Condition S tatus SNOMED Code Problem Paranoid schizophrenia F20.0 Active 14055584 Problem Borderline personality disorder F60.3 Active 94164562 Problem Schizoaffective disorder, depressive type F25.1 Active 33935832 Problem Schizoaffective disorder, unspecified F25.9 Active 22545589 Problem Attention deficit hyperactivity disorder (ADHD), inattentive type, 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 05015552 Problem Posttraumatic stress disorder F43.10 Active 62377934 Problem High risk medication use Z79.899 Activ e [id number] ALLERGIES No Information ENCOUNTERS Encounter Location Date Diagnosis [facility] [address] [facility] [id number] [address] [place] [phone] Jan, [facility] [address] [facility] [id number] [address] [place] [phone] Jan, [facility] [address] [facility] [id number] [address] [place] [phone] Jan, [facility] [address] [facility] [id number] [address] [place] [phone] Jan, [facility] [address] [facility] [id number] [address] [place] [phone] Jan, [facility] [address] [facility] [id number] [address] [place] [phone] Jan, Posttraumatic stress disorde r F43.10 ; Attention deficit hyperactivity disorder (ADHD), inattentive type, 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 ; Borderline personality disorder F60.3 and Schizoaffective disorder, depressive type F25.1 [facility] [address] [id number] [address] [place] [phone] Dec, Paranoid schizophrenia F20.0 ; Attention deficit hyperactivity disorder (ADHD), inattentive type, 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 ; Posttraumatic stress disorder F43.10 and Borderline personality disorder F60.3 [facility] [address] [id number] [address] [place] [phone] Nov, Paranoid schizophrenia F20.0 ; Attention deficit hyperactivity disorder (ADHD), inattentive type, 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 ; Posttraumatic stress disorder F43.10 and Borderline personality disorder F60.3 [facility] [address] [id number] [address] [place] [phone] Nov, [facility] [address] [id number] [address] [place] [phone] Oct, Paranoid schizophrenia F20.0 ; Attention deficit hyperactivity disorder (ADHD), inattentive type, 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 ; Posttraumatic stress disorder F43.10 and Borderline personality disorder F60.3 [facility] [address] [id number] [address] [place] [phone] Oct, [facility] [address] [id number] [address] [place] [phone] Sep, Paranoid schizophrenia F20.0 ; Attention deficit hyperactivity disorder (ADHD), inattentive type, 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 ; Posttraumatic stress disorder F43.10 and Borderline personality disorder F60.3 [facility] [address] [id number] [address] [place] [phone] Aug, Paranoid schizophrenia F20.0 ; Attention deficit hyperactivity disorder (ADHD), inattentive type, 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 ; Posttraumatic stress disorder F43.10 and Borderline personality disorder F60.3 [facility] [address] [id number] [address] [place] [phone] Aug, [facility] [address] [id number] [address] [place] [phone] Aug, Acute bronchitis, unspecifie d organism J20.9 [facility] [address] [id number] [address] [place] [phone] Aug, [facility] [address] [id number] [address] [place] [phone] Aug, [facility] [address] [id number] [address] [place] [phone] Jul, Paranoid schizophrenia F20.0 ; Attention deficit hyperactivity disorder (ADHD), inattentive type, 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 ; Posttraumatic stress disorder F43.10 and Borderline personality disorder F60.3 [facility] [address] [facility] [id number] [address] [place] [phone] Jul, [facility] [address] [facility] [id number] [address] [place] [phone] Jun, Paranoid schizophrenia F20.0 ; Other correction (current) drug therapy Z79.899 ; Attention deficit hyperactivity disorder (ADHD), inattentive type, 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 ; Posttraumatic stress disorder F43.10 and Borderline personality disorder F60.3 [facility] [address] [facility] [id number] [address] [place] [phone] Jun, Paranoid schizophrenia F20.0 ; Attention deficit hyperactivity disorder (ADHD), inattentive type, 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 ; Posttraumatic stress disorder F43.10 ; Borderline personality disorder F60.3 and Other correction (current) drug therapy Z79.899 [facility] [address] [id number] [address] [place] [phone] Apr, Paranoid schizophrenia F20.0 ; Posttraumatic stress disorder F43.10 ; Attention deficit hyperactivity disorder (ADHD), inattentive type, 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 and Borderline personality disorder F60.3 [facility] [address] [facility] [id number] [address] [place] [phone] Apr, Paranoid schizophrenia F20.0 [facility] [address] [facility] [id number] [address] [place] [phone] Apr, Paranoid schizophrenia F20.0 ; Posttraumatic stress disorder F43.10 ; Attention deficit hyperactivity disorder (ADHD), inattentive type, 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 and Borderline personality disorder F60.3 [facility] [address] [facility] [id number] [address] [place] [phone] Mar, Paranoid schizophrenia F20.0 [facility] [address] [facility] [id number] [address] [place] [phone] Mar, Paranoid schizophrenia F20.0 ; Posttraumatic stress disorder F43.10 ; Attention deficit hyperactivity disorder (ADHD), inattentive type, 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 and Borderline personality disorder F60.3 [facility] [address] [facility] [id number] [address] [place] [phone] February, Paranoid schizophrenia F20.0 [facility] [address] [facility] [id number] [address] [place] [phone] Jan, Paranoid schizophrenia F20.0 ; Posttraumatic stress disorder F43.10 ; Attention deficit hyperactivity disorder (ADHD), inattentive type, 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 and Borderline personality disorder F60.3 [facility] [address] [facility] [id number] [address] [place] [phone] Dec, Paranoid schizophrenia F20.0 ; Posttraumatic stress disorder F43.10 ; Attention deficit hyperactivity disorder (ADHD), inattentive type, 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 and Borderline personality disorder F60.3 [facility] [address] [facility] [id number] [address] [place] [phone] Dec, Paranoid schizophrenia F20.0 ; Posttraumatic stress disorder F43.10 ; Attention deficit hyperactivity disorder (ADHD), inattentive type, 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 and Borderline personality disorder F60.3 [facility] [address] [facility] [id number] [address] [place] [phone] Oct, Paranoid schizophrenia F20.0 ; Posttraumatic stress disorder F43.10 ; Attention deficit hyperactivity disorder (ADHD), inattentive type, 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 and Borderline personality disorder F60.3 [facility] [address] [id number] [address] [place] [phone] Oct, Paranoid schizophrenia F20.0 ; Posttraumatic stress disorder F43.10 ; Attention deficit hyperactivity disorder (ADHD), inattentive type, 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 and Borderline personality disorder F60.3 [facility] [address] [id number] [address] [place] [phone] Aug, [facility] [address] [id number] [address] [place] [phone] Aug, Paranoid schizophrenia F20.0 ; Posttraumatic stress disorder F43.10 ; Attention deficit hyperactivity disorder (ADHD), inattentive type, 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 and Borderline personality disorder F60.3 [facility] [address] [id number] [address] [place] [id number] Jul, Dry skin dermatitis L85.3 [facility] [address] [id number] [address] [place] [phone] Jul, [facility] [address] [id number] [address] [place] [phone] Jul, Paranoid schizophrenia F20.0 [facility] [address] [id number] [address] [place] [phone] May, Paranoid schizophrenia F20.0 ; Posttraumatic stress disorder F43.10 ; Attention deficit hyperactivity disorder (ADHD), inattentive type, 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 and Borderline personality disorder F60.3 [facility] [address] [id number] [address] [place] [phone] May, [facility] [address] [id number] [address] [place] [phone] May, Paranoid schizophrenia F20.0 [facility] [address] [facility] [id number] [address] [place] [phone] May, Paranoid schizophrenia F20.0 ; Posttraumatic stress disorder F43.10 ; Attention deficit hyperactivity disorder (ADHD), inattentive type, 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 and Borderline personality disorder F60.3 [facility] [address] [id number] [address] [place] [phone] Apr, [facility] [address] [id number] [address] [place] [phone] Apr, Paranoid schizophrenia F20.0 ; Posttraumatic stress disorder F43.10 ; Attention deficit hyperactivity disorder (ADHD), inattentive type, 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 and Borderline personality disorder F60.3 [facility] [address] [id number] [address] [place] [phone] Apr, [facility] [address] [id number] [address] [place] [phone] Apr, Schizoaffective disorder, de pressive type F25.1 and Borderline personality disorder F60.3 [facility] [address] [id number] [address] [place] [phone] Apr, Paranoid schizophrenia F20.0 ; Posttraumatic stress disorder F43.10 ; Attention deficit hyperactivity disorder (ADHD), inattentive type, 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 and Borderline personality disorder F60.3 [facility] [address] [id number] [address] [place] [phone] Apr, [facility] [address] [id number] [address] [place] [phone] Apr, Paranoid schizophrenia F20.0 ; Posttraumatic stress disorder F43.10 ; Attention deficit hyperactivity disorder (ADHD), inattentive type, 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 and Borderline personality disorder F60.3 [facility] [address] [id number] [address] [place] [phone] Apr, [facility] [address] [id number] [address] [place] [phone] Mar, Paranoid schizophrenia F20.0 [facility] [address] [id number] [address] [place] [phone] Mar, [facility] [address] [id number] [address] [place] [phone] Mar, Paranoid schizophrenia F20.0 ; Posttraumatic stress disorder F43.10 ; Attention deficit hyperactivity disorder (ADHD), inattentive type, 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 and Borderline personality disorder F60.3 [facility] [address] [id number] [address] [place] [phone] February, Paranoid schizophrenia F20.0 [facility] [address] [id number] [address] [place] [phone] February, Paranoid schizophrenia F20.0 ; Posttraumatic stress disorder F43.10 ; Attention deficit hyperactivity disorder (ADHD), inattentive type, 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 and Borderline personality disorder F60.3 [facility] [address] [id number] [address] [place] [phone] February, Paranoid schizophrenia F20.0 ; Posttraumatic stress disorder F43.10 ; Attention deficit hyperactivity disorder (ADHD), inattentive type, 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 and Borderline personality disorder F60.3 [facility] [address] [facility] [id number] [address] [place] [phone] February, [facility] [address] [id number] [address] [place] [phone] February, Paranoid schizophrenia F20.0 [facility] [address] [facility] [id number] [address] [place] [phone] February, Paranoid schizophrenia F20.0 [facility] [address] [id number] [address] [place] [phone] February, Paranoid schizophrenia F20.0 ; Posttraumatic stress disorder F43.10 ; Attention deficit hyperactivity disorder (ADHD), inattentive type, 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 and Borderline personality disorder F60.3 [facility] [address] [id number] [address] [place] [phone] Jan, Paranoid schizophrenia F20.0 ; Posttraumatic stress disorder F43.10 ; Attention deficit hyperactivity disorder (ADHD), inattentive type, 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 and Borderline personality disorder F60.3 [facility] [address] [id number] [address] [place] [phone] Jan, Paranoid schizophrenia F20.0 [facility] [address] [id number] [address] [place] [phone] Jan, Paranoid schizophrenia F20.0 [facility] [address] [id number] [address] [place] [phone] Jan, Paranoid schizophrenia F20.0 ; Posttraumatic stress disorder F43.10 ; Attention deficit hyperactivity disorder (ADHD), inattentive type, 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 and Borderline personality disorder F60.3 [facility] [address] [id number] [address] [place] [phone] Dec, [facility] [address] [id number] [address] [place] [phone] Nov, Paranoid schizophrenia F20.0 ; Posttraumatic stress disorder F43.10 ; Attention deficit hyperactivity disorder (ADHD), inattentive type, 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 and Borderline personality disorder F60.3 [facility] [address] [id number] [address] [place] [phone] Nov, [facility] [address] [id number] [address] [place] [phone] Oct, Paranoid schizophrenia F20.0 [facility] [address] [id number] [address] [place] [phone] Oct, Paranoid schizophrenia F20.0 ; Posttraumatic stress disorder F43.10 ; Attention deficit hyperactivity disorder (ADHD), inattentive type, 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 ; Borderline personality disorder F60.3 and Other correction (current) drug therapy Z79.899 [facility] [address] [id number] [address] [place] [phone] Oct, [facility] [address] [id number] [address] [place] [phone] Oct, [facility] [address] [facility] [id number] [address] [place] [phone] Sep, [facility] [address] [id number] [address] [place] [phone] Sep, Paranoid schizophrenia F20.0 ; Posttraumatic stress disorder F43.10 ; Attention deficit hyperactivity disorder (ADHD), inattentive type, 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 and Borderline personality disorder F60.3 [facility] [address] [facility] [id number] [address] [place] [phone] Sep, Paranoid schizophrenia F20.0 [facility] [address] [id number] [address] [place] [phone] Aug, Paranoid schizophrenia F20.0 ; Posttraumatic stress disorder F43.10 ; Attention deficit hyperactivity disorder (ADHD), inattentive type, 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 and Borderline personality disorder F60.3 [facility] [address] [facility] [id number] [address] [place] [phone] Aug, Paranoid schizophrenia F20.0 ; Posttraumatic stress disorder F43.10 ; Attention deficit hyperactivity disorder (ADHD), inattentive type, 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 and Borderline personality disorder F60.3 [facility] [address] [facility] [id number] [address] [place] [phone] Aug, [facility] [address] [facility] [id number] [address] [place] [phone] Jul, Paranoid schizophrenia F20.0 ; Posttraumatic stress disorder F43.10 ; Attention deficit hyperactivity disorder (ADHD), inattentive type, 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 and Borderline personality disorder F60.3 [facility] [address] [facility] [id number] [address] [place] [phone] Jul, Paranoid schizophrenia F20.0 [facility] [address] [id number] [address] [place] [phone] Jul, Paranoid schizophrenia F20.0 ; Posttraumatic stress disorder F43.10 ; Attention deficit hyperactivity disorder (ADHD), inattentive type, 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 and Borderline personality disorder F60.3 [facility] [address] [facility] [id number] [address] [place] [phone] Jun, Paranoid schizophrenia F20.0 ; Posttraumatic stress disorder F43.10 ; Attention deficit hyperactivity disorder (ADHD), inattentive type, 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 and Borderline personality disorder F60.3 [facility] [address] [id number] [address] [place] [phone] May, Other technician terminal and repeater (current) dr ug therapy Z79.899 [facility] [address] [id number] [address] [place] [phone] May, [facility] [address] [id number] [address] [place] [phone] May, [facility] [address] [id number] [address] [place] [phone] May, Attention deficit hyperactiv ity disorder (ADHD), inattentive type, mild F90.0 [facility] [address] [id number] [address] [place] [phone] May, [facility] [address] [id number] [address] [place] [phone] May, Attention deficit hyperactiv ity disorder (ADHD), inattentive type, mild F90.0 [facility] [address] [facility] [id number] [address] [place] [phone] May, Paranoid schizophrenia F20.0 ; Posttraumatic stress disorder F43.10 ; Attention deficit hyperactivity disorder (ADHD), inattentive type, 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 and Other correction (current) drug therapy Z79.899 [facility] [address] [id number] [address] [place] [phone] Apr, Paranoid schizophrenia F20.0 [facility] [address] [id number] [address] [place] [phone] Apr, Paranoid schizophrenia F20.0 ; Posttraumatic stress disorder F43.10 and Attention deficit hyperactivity disorder (ADHD), inattentive type, 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 [facility] [address] [id number] [address] [place] [phone] February, [facility] [address] [id number] [address] [place] [phone] February, Paranoid schizophrenia F20.0 ; Posttraumatic stress disorder F43.10 and Attention deficit hyperactivity disorder (ADHD), inattentive type, 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 [facility] [address] [facility] [id number] [address] [place] [phone] February, Paranoid schizophrenia F20.0 ; Posttraumatic stress disorder F43.10 and Attention deficit hyperactivity disorder (ADHD), inattentive type, 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 [facility] [address] [id number] [address] [place] [phone] Jan, Paranoid schizophrenia F20.0 ; Posttraumatic stress disorder F43.10 and Attention deficit hyperactivity disorder (ADHD), inattentive type, 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 [facility] [address] [id number] [address] [place] [id number] Dec, Dental examination Z01.20 [facility] [address] [id number] [address] [place] [id number] Nov, Dental examination Z01.20 [facility] [id number] [place] [id number] Nov, Dental examination Z01.20 [facility] [address] [id number] [address] [place] [address] [id number] Nov, Dental caries K02.9 [facility] [address] [id number] [address] [place] [phone] Nov, High risk medication use Z79 .899 [facility] [address] [id number] [address] [place] [phone] Nov, Paranoid schizophrenia F20.0 ; Posttraumatic stress disorder F43.10 ; Attention deficit hyperactivity disorder (ADHD), inattentive type, 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 and Borderline personality disorder in adult F60.3 [facility] [address] [id number] [address] [place] [address] [id number] Oct, Dental caries K02.9 [facility] [address] [id number] [address] [place] [phone] Sep, Paranoid schizophrenia F20.0 ; Posttraumatic stress disorder F43.10 and Attention deficit hyperactivity disorder (ADHD), inattentive type, 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 [facility] [address] [id number] [address] [place] [phone] Aug, Paranoid schizophrenia F20.0 ; Posttraumatic stress disorder F43.10 and Attention deficit hyperactivity disorder (ADHD), inattentive type, 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 [facility] [address] [id number] [address] [place] [phone] Aug, Strep throat J02.0 and Cough R05 [facility] [address] [id number] [address] [place] [phone] Aug, [facility] [address] [id number] [address] [place] [phone] Jul, Paranoid schizophrenia F20.0 ; Posttraumatic stress disorder F43.10 and Attention deficit hyperactivity disorder (ADHD), inattentive type, 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 [facility] [address] [id number] [address] [place] [id number] Jul, [facility] [address] [id number] [address] [place] [id number] 28 Jun, 2016 Paranoid schizophrenia F20.0 ; Posttraumatic stress disorder F43.10 and Attention deficit hyperactivity disorder (ADHD), inattentive type, 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 [facility] [address] [id number] [address] [place] [address] [id number] Jun, Dental examination Z01.20 [facility] [address] [id number] [address] [place] [phone] Jun, [facility] [address] [id number] [address] [place] [phone] May, Paranoid schizophrenia F20.0 [facility] [address] [id number] [address] [place] [address] May, Paranoid schizophrenia F20.0 ; Posttraumatic stress disorder F43.10 and Attention deficit hyperactivity disorder (ADHD), inattentive type, 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 [facility] [address] [id number] [address] [place] [phone] May, [facility] [address] [id number] [address] [place] [phone] May, Paranoid schizophrenia F20.0 [facility] [address] [id number] [address] [place] [id number] May, [facility] [address] [id number] [address] [place] [address] May, Paranoid schizophrenia F20.0 [facility] [address] [id number] [address] [place] [id number] May, Schizoaffective disorder, un specified F25.9 [facility] [address] [id number] [address] [place] [phone] May, Schizoaffective disorder, un specified F25.9 [facility] [address] [id number] [address] [place] [address] May, [facility] [address] [id number] [address] [place] [phone] May, Paranoid schizophrenia F20.0 [facility] [address] [id number] [address] [place] [address] May, Paranoid schizophrenia F20.0 ; Posttraumatic stress disorder F43.10 and Attention deficit hyperactivity disorder (ADHD), inattentive type, 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 [facility] [address] [id number] [address] [place] [id number] Mar, [facility] [address] [id number] [address] [place] [address] Mar, Paranoid schizophrenia F20.0 ; Posttraumatic stress disorder F43.10 and Attention deficit hyperactivity disorder (ADHD), inattentive type, 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 [facility] [address] [id number] [address] [place] [id number] Mar, Paranoid schizophrenia F20.0 [facility] [address] [id number] [address] [place] [phone] Mar, Paranoid schizophrenia F20.0 ; Attention deficit hyperactivity disorder (ADHD), inattentive type, 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 and Posttraumatic stress disorder F43.10 [facility] [address] [id number] [address] [place] [phone] Mar, [facility] [address] [id number] [address] [place] [address] Mar, Paranoid schizophrenia F20.0 ; Posttraumatic stress disorder F43.10 and Attention deficit hyperactivity disorder (ADHD), inattentive type, 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 [facility] [address] [id number] [address] [place] [phone] February, [facility] [address] [id number] [address] [place] [phone] February, [facility] [address] [id number] [address] [place] [phone] February, [facility] [address] [id number] [address] [place] [address] February, [facility] [address] [id number] [address] [place] [phone] Jan, Paranoid schizophrenia F20.0 [facility] [address] [id number] [address] [place] [id number] Jan, Dental examination Z01.20 [facility] [address] [id number] [address] [place] [address] [id number] Jan, Dental caries K02.9 [facility] [address] [id number] [address] [place] [address] [id number] Jan, Dental examination Z01.20 [facility] [address] [id number] [address] [place] [address] [id number] 30 Dec, 2015 Encounter for dental examina tion Z01.20 [facility] [address] [id number] [address] [place] [id number] 30 Dec, 2015 Paranoid schizophrenia F20.0 [facility] [address] [id number] [place] [id number] 15 Dec, 2015 Dental examination Z01.20 [facility] [address] [id number] [address] [place] [id number] Dec, [facility] [address] [id number] [address] [place] [phone] Dec, Paranoid schizophrenia F20.0 ; Posttraumatic stress disorder F43.10 and Attention deficit hyperactivity disorder (ADHD), inattentive type, 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 [facility] [address] [id number] [address] [place] [id number] Nov, Schizoaffective disorder, un specified F25.9 [facility] [address] [id number] [address] [place] [phone] Oct, Paranoid schizophrenia F20.0 [facility] [address] [id number] [address] [place] [phone] Oct, [facility] [address] [id number] [address] [place] [phone] Sep, Paranoid schizophrenia F20.0 ; Posttraumatic stress disorder F43.10 and Attention deficit hyperactivity disorder (ADHD), inattentive type, 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 [facility] [address] [id number] [address] [place] [address] Sep, [facility] [address] [id number] [address] [place] [id number] Sep, Paranoid schizophrenia F20.0 ; Posttraumatic stress disorder F43.10 and Attention deficit hyperactivity disorder (ADHD), inattentive type, 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 [facility] [address] [id number] [address] [place] [id number] Aug, Paranoid schizophrenia F20.0 [facility] [address] [facility] [id number] [address] [place] [id number] Aug, [facility] [address] [id number] [address] [place] [id number] Aug, Posttraumatic stress disorde r F43.10 ; Paranoid schizophrenia F20.0 and Attention deficit hyperactivity disorder (ADHD), inattentive type, 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 [facility] [address] [id number] [address] [place] [phone] Jul, Bipolar disorder, unspecifie d F31.9 [place] [address] [id number] [address] [place] [id number] Jul, [facility] [id number] [place] [phone] Jun, [facility] [address] [address] Jun, Schizoaffective disorder, ch ronic 295.72 ; Posttraumatic stress disorder 309.81 and Attention deficit disorder of childhood without mention of hyperactivity 314.00 [facility] [address] [id number] [address] [place] [phone] May, [facility] [address] [id number] [address] [place] [id number] May, [facility] [address] [id number] [address] [place] [phone] May, Schizoaffective disorder, ch ronic 295.72 ; Posttraumatic stress disorder 309.81 ; Attention deficit disorder of childhood without mention of hyperactivity 314.00 and Bipolar disorder, unspecified 296.80 [facility] [address] [id number] [address] [place] [address] Apr, Schizoaffective disorder, ch ronic 295.72 [facility] [address] [id number] [address] [place] [id number] Apr, [facility] [address] [id number] [address] [place] [phone] Apr, Schizoaffective disorder, ch ronic 295.72 ; Posttraumatic stress disorder 309.81 and Attention deficit disorder of childhood without mention of hyperactivity 314.00 [facility] [address] [id number] [address] [place] [phone] Mar, Disorganized schizophrenia, 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 [facility] [address] [id number] [address] [place] [phone] Mar, [facility] [address] [id number] [address] [place] [id number] Mar, [facility] [address] [id number] [address] [place] [phone] Mar, [facility] [address] [id number] [address] [place] [phone] Mar, [facility] [address] [id number] [address] [place] [phone] February, Schizoaffective disorder, ch ronic 295.72 [facility] [address] [id number] [address] [place] [phone] February, [facility] [address] [id number] [address] [place] [phone] February, Attention 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 ; Posttraumatic stress disorder 309.81 and Schizoaffective disorder, chronic 295.72 [facility] [address] [id number] [address] [place] [phone] Jan, [facility] [address] [id number] [address] [place] [phone] Jan, [facility] [address] [id number] [address] [place] [id number] Jan, [facility] [address] [id number] [address] [place] [phone] Dec, [facility] [address] [id number] [address] [place] [address], [place] [address] Dec, [facility] [address] [id number] [address] [place] [address], [place] [address] Dec, [facility] [address] [id number] [address] [place] [address], [place] [address] Dec, [facility] [address] [id number] [address] [place] [address], [place] [address] Dec, [facility] [address] [id number] [address] [place] [address], [place] [address] Dec, [facility] [address] [id number] [address] [place] [address], [place] [address] Dec, [facility] [address] [id number] [address] [place] [address], [place] [address] Dec, [facility] [address] [id number] [address] [place] [address], [place] [address] Nov, [facility] [address] [id number] [address] [place] [address], [place] [address] Nov, [facility] [address] [id number] [address] [place] [address], [place] [address] Nov, [facility] [address] [id number] [address] [place] [address], [place] [address] Nov, 2014 [facility] [address] [id number] [address] [place] [address], [place] [address] Nov, 2014 [facility] [address] [id number] [address] [place] [address], [place] [address] Nov, 2014 [facility] [address] [id number] [address] [place] [address], [place] [address] Nov, 2014 [facility] [address] [id number] [address] [place] [address], [place] [address] Nov, 2014 [facility] [address] [id number] [address] [place] [address], [place] [address] Nov, [facility] [address] [id number] [address] [place] [address], [place] [address] Nov, [facility] [address] [id number] [address] [place] [address], [place] [address] Oct, [facility] [address] [id number] [address] [place] [address], [place] [address] Oct, [facility] [address] [id number] [address] [place] [address], [place] [address] Oct, [facility] [address] [id number] [address] [place] [address], [place] [address] Oct, [facility] [address] [id number] [address] [place] [address], [place] [address] Oct, [facility] [address] [id number] [address] [place] [address], [place] [address] Oct, [facility] [address] [id number] [address] [place] [address], [place] [address] Oct, [facility] [address] [id number] [address] [place] [address], [place] [address] 17 Sep, 2014 [facility] [address] [id number] [address] [place] [address], [place] [address] 17 Sep, 2014 [facility] [address] [id number] [address] [place] [address], [place] [address] 15 Sep, 2014 [facility] [address] [id number] [address] [place] [address], [place] [address] 15 Sep, 2014 [facility] [address] [id number] [address] [place] [address], [place] [address] 20 Aug, 2014 [facility] [address] [id number] [address] [place] [address], [place] [address] 20 Aug, 2014 [facility] [address] [id number] [address] [place] [address], [place] [address] Aug, [facility] [address] [id number] [address] [place] [address], [place] [address] Aug, [facility] [address] [id number] [address] [place] [address], [place] [address] Aug, [facility] [address] [id number] [address] [place] [address], [place] [address] Aug, [facility] [address] [id number] [address] [place] [address], [place] [address] Jul, [facility] [address] [id number] [address] [place] [address], [place] [address] Jul, [facility] [address] [id number] [address] [place] [address], [place] [address] Jul, [facility] [address] [id number] [address] [place] [address], [place] [address] Jul, [facility] [address] [id number] [address] [place] [address], [place] [address] Jul, [facility] [address] [id number] [address] [place] [address], [place] [address] 15 Jul, 2014 [facility] [address] [id number] [address] [place] [address], [place] [address] 27 Jun, 2014 [facility] [address] [id number] [address] [place] [address], [place] [address] 27 Jun, 2014 [facility] [address] [id number] [address] [place] [address], [place] [address] 26 Jun, 2013 [facility] [address] [id number] [address] [place] [address], [place] [address] 26 Jun, 2014 [facility] [address] [id number] [address] [place] [address], [place] [address] 26 Jun, 2013 [facility] [address] [id number] [address] [place] [address], [place] [address] 26 Jun, 2013 [facility] [address] [id number] [facility] [place] [address] 16 Jun, 2013 [facility] [address] [id number] [address] [place] [address], [place] [address] 16 Jun, 2013 [facility] [address] [id number] [facility] [place] [address] Jun, 2013 [facility] [address] [id number] [address] [place] [address], [place] [address] Jun, 2013 [facility] [address] [id number] [address] [place] [address], [place] [address] Jun, [facility] [address] [id number] [address] [place] [address], [place] [address] May, [facility] [address] [id number] [address] [place] [address], [place] [address] May, [facility] [address] [id number] [address] [place] [address], [place] [address] May, [facility] [address] [id number] [address] [place] [address], [place] [address] May, [facility] [address] [id number] [address] [place] [address], [place] [address] May, [facility] [address] [id number] [address] [place] [address], [place] [address] May, [facility] [address] [id number] [address] [place] [address], [place] [address] May, [facility] [address] [id number] [address] [place] [address], [place] [address] May, [facility] [address] [id number] [address] [place] [address], [place] [address] May, [facility] [address] [id number] [address] [place] [address], [place] [address] May, [facility] [address] [id number] [address] [place] [address], [place] [address] Apr, [facility] [address] [id number] [address] [place] [address], [place] [address] Apr, [facility] [address] [id number] [address] [place] [address], [place] [address] Apr, [facility] [address] [id number] [address] [place] [address], [place] [address] Apr, [facility] [address] [id number] [address] [place] [address], [place] [address] Apr, [facility] [address] [id number] [address] [place] [address], [place] [address] Apr, [facility] [address] [id number] [address] [place] [address], [place] [address] Apr, [facility] [address] [id number] [address] [place] [address], [place] [address] Apr, [facility] [address] [id number] [address] [place] [address], [place] [address] Apr, [facility] [address] [id number] [address] [place] [address], [place] [address] Apr, [facility] [address] [id number] [address] [place] [address], [place] [address] Mar, [facility] [address] [id number] [address] [place] [address], [place] [address] Mar, [facility] [address] [id number] [address] [place] [address], [place] [address] Mar, [facility] [address] [id number] [address] [place] [address], [place] [address] Mar, [facility] [address] [id number] [address] [place] [address], [place] [address] Mar, [facility] [address] [id number] [address] [place] [address], [place] [address] Mar, [facility] [address] [id number] [address] [place] [address], [place] [address] 18 Mar, 2014 [facility] [address] [id number] [facility] [place] [address] Mar, [facility] [address] [id number] [address] [place] [address], [place] [address] 16 Mar, 2014 [facility] [address] [id number] [address] [place] [address], [place] [address] Mar, [facility] [address] [id number] [address] [place] [address], [place] [address] Mar, [facility] [address] [id number] [address] [place] [address], [place] [address] Mar, [facility] [address] [id number] [address] [place] [address], [place] [address] Mar, [facility] [address] [id number] [address] [place] [address], [place] [address] Mar, [facility] [address] [id number] [address] [place] [address], [place] [address] Mar, [facility] [address] [id number] [address] [place] [address], [place] [address] Mar, [facility] [address] [id number] [address] [place] [address], [place] [address] Mar, [facility] [address] [id number] [address] [place] [address], [place] [address] Mar, [facility] [address] [id number] [address] [place] [address], [place] [address] Mar, [facility] [address] [id number] [address] [place] [address], [place] [address] Mar, [facility] [address] [id number] [address] [place] [address], [place] [address] February, [facility] [address] [id number] [address] [place] [address], [place] [address] February, [facility] [address] [id number] [facility] [place] [address] February, [facility] [address] [id number] [facility] [place] [address] February, [facility] [address] [id number] [facility] [place] [address] February, [facility] [address] [id number] [facility] [place] [address] February, [facility] [address] [id number] [facility] [place] [address] February, [facility] [address] [id number] [address] [place] [address], [place] [address] February, [facility] [address] [id number] [address] [place] [address], [place] [address] February, [facility] [address] [id number] [address] [place] [address], [place] [address] February, [facility] [address] [id number] [address] [place] [address], [place] [address] February, [facility] [address] [id number] [address] [place] [address], [place] [address] February, [facility] [address] [id number] [address] [place] [address], [place] [address] February, [facility] [address] [id number] [address] [place] [address], [place] [address] February, [facility] [address] [id number] [address] [place] [address], [place] [address] February, [facility] [address] [id number] [address] [place] [address], [place] [address] February, [facility] [address] [id number] [address] [place] [address], [place] [address] February, [facility] [address] [id number] [address] [place] [address], [place] [address] February, [facility] [address] [id number] [address] [place] [address], [place] [address] February, [facility] [address] [id number] [address] [place] [address], [place] [address] February, [facility] [address] [id number] [address] [place] [address], [place] [address] February, [facility] [address] [id number] [address] [place] [address], [place] [address] Jan, [facility] [address] [id number] [address] [place] [address], [place] [address] Jan, [facility] [address] [id number] [address] [place] [address], [place] [address] Jan, [facility] [address] [id number] [address] [place] [address], [place] [address] Jan, [facility] [address] [id number] [address] [place] [address], [place] [address] Jan, [facility] [address] [id number] [address] [place] [address], [place] [address] Jan, [facility] [address] [id number] [address] [place] [address], [place] [address] Jan, [facility] [address] [id number] [address] [place] [address], [place] [address] Jan, [facility] [address] [id number] [address] [place] [address], [place] [address] Dec, [facility] [address] [id number] [address] [place] [address], [place] [address] Dec, [facility] [address] [id number] [address] [place] [address], [place] [address] Dec, [facility] [address] [id number] [address] [place] [address], [place] [address] Dec, [facility] [address] [id number] [address] [place] [address], [place] [address] 19 Dec, 2013 [facility] [address] [id number] [address] [place] [address], [place] [address] 15 Dec, 2013 [facility] [address] [id number] [address] [place] [address], [place] [address] 15 Dec, 2013 [facility] [address] [id number] [address] [place] [address], [place] [address] 11 Dec, 2013 [facility] [address] [id number] [address] [place] [address], [place] [address] 10 Dec, 2013 [facility] [address] [id number] [address] [place] [address], [place] [address] 10 Dec, 2013 [facility] [address] [id number] [address] [place] [address], [place] [address] 18 Nov, 2013 [facility] [address] [id number] [address] [place] [address], [place] [address] 17 Nov, 2013 [facility] [address] [id number] [address] [place] [address], [place] [address] 17 Nov, 2013 [facility] [address] [id number] [address] [place] [address], [place] [address] 05 Nov, 2013 [facility] [address] [id number] [address] [place] [address], [place] [address] 05 Nov, 2013 [facility] [address] [id number] [address] [place] [address], [place] [address] Oct, [facility] [address] [id number] [address] [place] [address], [place] [address] Oct, [facility] [address] [id number] [address] [place] [address], [place] [address] Oct, [facility] [address] [id number] [address] [place] [address], [place] [address] Sep, [facility] [address] [id number] [address] [place] [address], [place] [address] Sep, [facility] [address] [id number] [address] [place] [address], [place] [address] Sep, [facility] [address] [id number] [address] [place] [address], [place] [address] Sep, [facility] [address] [id number] [address] [place] [address], [place] [address] Aug, [facility] [address] [id number] [address] [place] [address], [place] [address] Aug, [facility] [address] [id number] [address] [place] [address], [place] [address] Jul, [facility] [address] [id number] [address] [place] [address], [place] [address] Jul, [facility] [address] [id number] [address] [place] [address], [place] [address] Jul, [facility] [address] [id number] [address] [place] [address], [place] [address] Jul, [facility] [address] [id number] [address] [place] [address], [place] [address] Jul, [facility] [address] [id number] [address] [place] [id number] 25 Jun, 2013 [facility] [address] [id number] [address] [place] [address] 25 Jun, 2013 [facility] [address] [id number] [address] [place] [address] 19 Sep, 2012 [facility] [address] [id number] [address] [place] [address], [place] [address] 18 Sep, 2012 [facility] [address] [id number] [address] [place] [address], [place] [address] 16 Sep, 2012 [facility] [address] [id number] [address] [place] [address] 12 Sep2012 [facility] [address] [id number] [address] [place] [address] Jun, [facility] [address] [id number] [address] [place] [address], [place] [address] May, [facility] [address] [id number] [address] [place] [address], [place] [address] May, [facility] [address] [id number] [address] [place] [address], [place] [address] Apr, [facility] [address] [id number] [address] [place] [address], [place] [address] Apr, [facility] [address] [id number] [address] [place] [address], [place] [address] Apr, [facility] [address] [id number] [address] [place] [address], [place] [address] Mar, [facility] [address] [id number] [address] [place] [address], [place] [address] Mar, [facility] [address] [id number] [address] [place] [address], [place] [address] February, [facility] [address] [id number] [address] [place] [address], [place] [address] February, [facility] [address] [id number] [address] [place] [address], [place] [address] February, [facility] [address] [id number] [address] [place] [address], [place] [address] February, [facility] [address] [id number] [address] [place] [address], [place] [address] Jan, [facility] [address] [id number] [address] [place] [address], [place] [address] 17 Jan, 2013 [facility] [address] [id number] [address] [place] [address], [place] [address] 16 Jan, 2013 [facility] [address] [id number] [address] [place] [address], [place] [address] Dec, [facility] [address] [id number] [address] [place] [address], [place] [address] Dec, [facility] [address] [id number] [address] [place] [address], [place] [address] Dec, [facility] [address] [id number] [address] [place] [address], [place] [address] Dec, [facility] [address] [id number] [address] [place] [address], [place] [address] Nov, [facility] [address] [id number] [address] [place] [address], [place] [address] Nov, [facility] [address] [id number] [address] [place] [address], [place] [address] Oct, [facility] [address] [id number] [address] [place] [address], [place] [address] Oct, [facility] [address] [id number] [address] [place] [address], [place] [address] Oct, [facility] [address] [id number] [address] [place] [address], [place] [address] Oct, [facility] [address] [id number] [address] [place] [address], [place] [address] Aug, [facility] [address] [id number] [address] [place] [address], [place] [address] Aug, [facility] [address] [id number] [address] [place] [address], [place] [address] Jun, [facility] [address] [id number] [address] [place] [address], [place] [address] May, [facility] [address] [id number] [address] [place] [address], [place] [address] May, [facility] [address] [id number] [address] [place] [address], [place] [address] Apr, [facility] [address] [id number] [address] [place] [address], [place] [address] Apr, [facility] [address] [id number] [address] [place] [address], [place] [address] 05 Apr, 2012 [facility] [address] [id number] [address] [place] [address], [place] [address] Mar, [facility] [address] [id number] [address] [place] [address], [place] [address] Mar, [facility] [address] [id number] [address] [place] [address], [place] [address] Mar, [facility] [address] [id number] [address] [place] [address], [place] [address] Mar, [facility] [address] [id number] [address] [place] [address], [place] [address] Mar, [facility] [address] [id number] [address] [place] [address], [place] [address] February, [facility] [address] [id number] [address] [place] [address], [place] [address] February, [facility] [address] [id number] [address] [place] [address], [place] [address] February, [facility] [address] [id number] [address] [place] [address], [place] [address] February, [facility] [address] [id number] [address] [place] [address], [place] [address] February, [facility] [address] [id number] [address] [place] [address], [place] [address] February, [facility] [address] [id number] [address] [place] [address], [place] [address] February, [facility] [address] [id number] [address] [place] [address], [place] [address] Jan, [facility] [address] [id number] [address] [place] [address], [place] [address] Jan, [facility] [address] [id number] [address] [place] [address], [place] [address] 17 Jan, 2012 [facility] [address] [id number] [address] [place] [address], [place] [address] 13 Jan, 2012 [facility] [address] [id number] [address] [place] [address], [place] [address] 10 Jan, 2012 [facility] [address] [id number] [address] [place] [address], [place] [address] 04 Jan, 2012 [facility] [address] [id number] [address] [place] [address], [place] [address] 30 Dec, 2011 [facility] [address] [id number] [address] [place] [address], [place] [address] 24 Dec, 2011 [facility] [address] [id number] [address] [place] [address], [place] [address] 20 Dec, 2011 [facility] [address] [id number] [address] [place] [address], [place] [address] 13 Dec, 2011 [facility] [address] [id number] [address] [place] [address], [place] [address] 06 Dec, 2011 [facility] [address] [id number] [address] [place] [address], [place] [address] 28 Nov, 2011 [facility] [address] [id number] [address] [place] [address], [place] [address] 27 Nov, 2011 [facility] [address] [id number] [address] [place] [address], [place] [address] 25 Nov, 2011 [facility] [address] [id number] [address] [place] [address], [place] [address] 14 Nov, 2011 [facility] [address] [id number] [address] [place] [address], [place] [address] 10 Nov, 2011 [facility] [address] [id number] [address] [place] [address], [place] [address] Nov, [facility] [address] [id number] [address] [place] [address], [place] [address] Oct, [facility] [address] [id number] [address] [place] [address], [place] [address] Oct, [facility] [address] [id number] [address] [place] [address], [place] [address] Oct, [facility] [address] [id number] [address] [place] [address], [place] [address] Oct, [facility] [address] [id number] [address] [place] [address], [place] [address] Oct, [facility] [address] [id number] [address] [place] [address], [place] [address] Sep, [facility] [address] [id number] [address] [place] [address], [place] [address] Sep, [facility] [address] [id number] [address] [place] [address], [place] [address] Sep, [facility] [address] [id number] [address] [place] [address], [place] [address] Sep, [facility] [address] [id number] [address] [place] [address], [place] [address] Sep, [facility] [address] [id number] [address] [place] [address], [place] [address] Sep, [facility] [address] [id number] [address] [place] [address], [place] [address] Sep, [facility] [address] [id number] [address] [place] [address], [place] [address] Sep, [facility] [address] [id number] [address] [place] [address], [place] [address] Sep, [facility] [address] [id number] [address] [place] [address], [place] [address] Aug, [facility] [address] [id number] [address] [place] [address], [place] [address] Aug, [facility] [address] [id number] [address] [place] [address], [place] [address] Aug, [facility] [address] [id number] [address] [place] [address], [place] [address] Aug, [facility] [address] [id number] [address] [place] [address], [place] [address] Aug, [facility] [address] [id number] [address] [place] [address], [place] [address] Aug, [facility] [address] [id number] [address] [place] [address], [place] [address] Aug, [facility] [address] [id number] [address] [place] [address], [place] [address] Aug, [facility] [address] [id number] [address] [place] [address], [place] [address] Aug, [facility] [address] [id number] [address] [place] [address], [place] [address] Aug, [facility] [address] [id number] [address] [place] [address], [place] [address] Aug, [facility] [address] [id number] [address] [place] [address], [place] [address] Aug, [facility] [address] [id number] [address] [place] [address], [place] [address] Jul, [facility] [address] [id number] [address] [place] [address], [place] [address] Jul, [facility] [address] [id number] [address] [place] [address], [place] [address] Jul, [facility] [address] [id number] [address] [place] [address], [place] [address] Jul, [facility] [address] [id number] [address] [place] [address], [place] [address] Jul, [facility] [address] [id number] [address] [place] [address], [place] [address] Jul, [facility] [address] [id number] [address] [place] [address] Jul, [facility] [address] [id number] [address] [place] [address] Jul, [facility] [address] [id number] [address] [place] [address] Jul, [facility] [address] [id number] [address] [place] [address] Jul, [facility] [address] [id number] [address] [place] [address] Nov, [facility] [address] [facility] [id number] [address] [place] [address] Aug, [facility] [address] [facility] [id number] [address] [place] [address] Aug, [facility] [address] [facility] [id number] [address] [place] [id number] Aug, [facility] [address] [facility] [id number] [address] [place] [address] Aug, [facility] [address] [facility] [id number] [address] [place] [id number] Jul, IMMUNIZATIONS No Known Immunizations SOCIAL HISTORY [...]
--- OUTSIDE RECORDS SUMMARY | 2020-04-04 02:26 | XMS REPORT ---
Author Author Kaila Roca Organization 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 [address] [facility] [id number] [address] [place] [phone] Jan, [facility] [address] [facility] [id number] [address] [place] [phone] Jan, [facility] [address] [facility] [id number] [address] [place] [phone] Jan, 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 [address] [place] [id number] [address] [place] [phone] Nov, 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 [address] [place] [id number] [address] [place] [phone] Oct, 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 [address] [place] [id number] [address] [place] [phone] Aug, [facility] [address] [place] [id number] [address] [place] [phone] Aug, Acute bronchitis, unspecifie d organism J20.9 [facility] [address] [place] [id number] [address] [place] [phone] Aug, [facility] [address] [place] [id number] [address] [place] [phone] Aug, 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 [address] [facility] [id number] [address] [place] [phone] Jul, 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 [address] [facility] [id number] [address] [place] [id number] Apr, Paranoid schizophrenia F20.0 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 [address] [facility] [id number] [address] [place] [phone] Mar, Paranoid schizophrenia F20.0 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 [address] [place] [id number] [address] [place] [phone] February, Paranoid schizophrenia F20.0 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 [address] [id number] [address] [place] [phone] Aug, 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 [address] [id number] [address] [place] [phone] Jul, [facility] [address] [facility] [id number] [address] [place] [phone] Jul, Paranoid schizophrenia F20.0 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 [address] [id number] [address] [place] [phone] May, [facility] [address] [id number] [address] [place] [phone] May, Paranoid schizophrenia F20.0 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 [address] [id number] [address] [place] [phone] Apr, 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 [address] [id number] [address] [place] [phone] Apr, [facility] [address] [id number] [address] [place] [phone] Apr, Schizoaffective disorder, de pressive type F25.1 and Borderline personality disorder F60.3 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 [address] [id number] [address] [place] [phone] Apr, 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 [address] [id number] [address] [place] [phone] Apr, [facility] [address] [id number] [address] [place] [phone] Mar, Paranoid schizophrenia F20.0 [facility] [address] [id number] [address] [place] [phone] Mar, 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 [address] [id number] [address] [place] [phone] February, Paranoid schizophrenia F20.0 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 [address] [id number] [address] [place] [phone] February, [facility] [address] [id number] [address] [place] [phone] February, Paranoid schizophrenia F20.0 [facility] [address] [id number] [address] [place] [phone] February, Paranoid schizophrenia F20.0 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 [address] [facility] [id number] [address] [place] [phone] Jan, Paranoid schizophrenia F20.0 [facility] [address] [id number] [address] [place] [phone] Jan, Paranoid schizophrenia F20.0 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 [address] [id number] [address] [place] [phone] Dec, 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 [address] [id number] [address] [place] [phone] Nov, [facility] [address] [id number] [address] [place] [id number] Oct, Paranoid schizophrenia F20.0 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 [address] [id number] [address] [place] [phone] Oct, [facility] [address] [id number] [address] [place] [phone] Oct, [facility] [address] [id number] [address] [place] [phone] Sep, 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 [address] [id number] [address] [place] [phone] Sep, Paranoid schizophrenia F20.0 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 [address] [facility] [id number] [address] [place] [phone] Aug, 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 [address] [facility] [id number] [address] [place] [phone] Jul, Paranoid schizophrenia F20.0 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 [address] [id number] [address] [place] [phone] May, Other senior care (current) dr ug therapy Z79.899 [facility] [address] [id number] [address] [place] [phone] May, [facility] [address] [id number] [address] [place] [phone] May, [facility] [address] [id number] [address] [place] [phone] May, Attention deficit hyperactiv ity disorder (ADHD), inattentive type, 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 [address] [id number] [address] [place] [id number] May, [facility] [address] [id number] [address] [place] [phone] May, Attention deficit hyperactiv ity disorder (ADHD), inattentive type, 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 [address] [id number] [address] [place] [phone] Apr, Paranoid schizophrenia F20.0 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 [address] [id number] [address] [place] [phone] February, 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 [address] [id number] [address] [place] [phone] Nov, High risk medication use Z79 .899 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 [address] [id number] [address] [place] [id number] Aug, 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 [address] [id number] [address] [place] [phone] Jul, 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 [address] [id number] [address] [place] [phone] Jun, [facility] [address] [id number] [address] [place] [phone] May, Paranoid schizophrenia F20.0 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 [address] [id number] [address] [place] [address] [place] [address] May, [facility] [address] [id number] [address] [place] [phone] May, Paranoid schizophrenia F20.0 [facility] [address] [id number] [address] [place] [phone] May, [facility] [address] [id number] [address] [place] [phone] May, Paranoid schizophrenia F20.0 [facility] [address] [id number] [address] [place] [phone] May, Schizoaffective disorder, un specified F25.9 [facility] [address] [id number] [address] [place] [phone] May, Schizoaffective disorder, un specified F25.9 [facility] [address] [id number] [address] [place] [phone] May, [facility] [address] [id number] [address] [place] [phone] May, Paranoid schizophrenia F20.0 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 [address] [id number] [address] [place] [phone] Mar, 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 [address] [id number] [address] [place] [address] Mar, Paranoid schizophrenia F20.0 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 [address] [id number] [address] [place] [address] Mar, 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 [address] [id number] [address] [place] [address] February, [facility] [address] [id number] [address] [place] [address] February, [facility] [address] [id number] [address] [place] [address] February, [facility] [address] [id number] [address] [place] [address] February, [facility] [address] [id number] [address] [place] [address] Jan, Paranoid schizophrenia F20.0 [facility] [address] [id number] [address] [place] [address] [id number] Jan, Dental examination Z01.20 [facility] [address] [id number] [address] [place] [address] [id number] Jan, Dental caries K02.9 [facility] [address] [id number] [address] [place] [address] [id number] Jan, Dental examination Z01.20 [facility] [address] [id number] [address] [place] [address] [id number] Dec, Encounter for dental examina tion Z01.20 [facility] [address] [id number] [address] [place] [address] Dec, Paranoid schizophrenia F20.0 [facility] [address] [id number] [address] [place] [address] [id number] Dec, Dental examination Z01.20 [facility] [address] [id number] [address] [place] [address] Dec, 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 [address] [id number] [address] [place] [address] Nov, Schizoaffective disorder, un specified F25.9 [facility] [address] [id number] [address] [place] [address] Oct, Paranoid schizophrenia F20.0 [facility] [address] [id number] [address] [place] [address] Oct, 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 [address] [id number] [address] [place] [address] Sep, 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 [address] [id number] [address] [place] [address] Aug, Paranoid schizophrenia F20.0 [facility] [address] [id number] [address] [place] [address] Aug, 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 [address] [facility] [id number] [address] [place] [address] Jul, Bipolar disorder, unspecifie d F31.9 [facility] [address] [facility] [id number] [address] [place] [address] Jul, [facility] [address] [facility] [id number] [address] [place] [address] Jun, [facility] [address] [facility] [id number] [address] [place] [address] Jun, Schizoaffective disorder, ch ronic 295.72 ; Posttraumatic stress disorder 309.81 and Attention deficit disorder of childhood without mention of hyperactivity 314.00 [facility] [address] [place] [id number] [address] [place] [address] May, [facility] [address] [facility] [id number] [address] [place] [address] May, [facility] [address] [place] [id number] [address] [place] [address] May, Schizoaffective disorder, ch ronic 295.72 ; Posttraumatic stress disorder 309.81 ; Attention deficit disorder of childhood without mention of hyperactivity 314.00 and Bipolar disorder, unspecified 296.80 [facility] [address] [facility] [id number] [address] [place] [address] Apr, Schizoaffective disorder, ch ronic 295.72 [facility] [address] [facility] [id number] [address] [place] [address] Apr, [facility] [address] [facility] [id number] [address] [place] [address] Apr, Schizoaffective disorder, ch ronic 295.72 ; Posttraumatic stress disorder 309.81 and Attention deficit disorder of childhood without mention of hyperactivity 314.00 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 [address] [id number] [address] [place] [address] Mar, [facility] [address] [id number] [address] [place] [address] Mar, [facility] [address] [id number] [address] [place] [address] Mar, [facility] [address] [id number] [address] [place] [address] Mar, [facility] [address] [id number] [address] [place] [address] February, Schizoaffective disorder, ch ronic 295.72 [facility] [address] [id number] [address] [place] [address] February, [facility] [address] [id number] [address] [place] [address] February, Attention 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 ; Posttraumatic stress disorder 309.81 and Schizoaffective disorder, chronic 295.72 [facility] [address] [id number] [address] [place] [address] 29 Jan, 2015 [facility] [address] [id number] [address] [place] [id number] [address] Jan, [address] [facility] [address] [id number] [address] [place] [address] Jan, [facility] [address] [facility] [id number] [address] [place] [address] Dec, [facility] [address] [id number] [address] [place] [address] Dec, [facility] [address] [id number] [address] [place] [id number] Dec, [facility] [address] [id number] [address] [place] [address], [place] [address] Dec, [facility] [address] [id number] [address] [place] [address], [place] [address] Dec, [facility] [address] [id number] [address] [place] [address], [place] [address] Dec, [facility] [address] [id number] [address] [place] [address], [place] [address] Dec, [facility] [address] [id number] [address] [place] [address], [place] [address] Dec, [facility] [address] [id number] [address] [place] [address], [place] [address] Nov, 2014 [facility] [address] [id number] [address] [place] [address], [place] [address] Nov, [facility] [address] [id number] [address] [place] [address], [place] [address] Nov, 2014 [facility] [address] [id number] [address] [place] [address], [place] [address] Nov, 2014 [facility] [address] [id number] [address] [place] [address], [place] [address] Nov, 2014 [facility] [address] [id number] [address] [place] [address], [place] [address] Nov, 2014 [facility] [address] [id number] [address] [place] [address], [place] [address] Nov, 2014 [facility] [address] [id number] [address] [place] [address], [place] [address] Nov, 2014 [facility] [address] [id number] [address] [place] [address], [place] [address] Nov, 2014 [facility] [address] [id number] [address] [place] [address], [place] [address] Nov, 2014 [facility] [address] [id number] [address] [place] [address], [place] [address] Oct, [facility] [address] [id number] [address] [place] [address], [place] [address] Oct, [facility] [address] [id number] [address] [place] [address], [place] [address] Oct, [facility] [address] [id number] [address] [place] [address], [place] [address] Oct, [facility] [address] [id number] [address] [place] [address], [place] [address] 15 Oct, 2014 [facility] [address] [id number] [address] [place] [address], [place] [address] Oct, [facility] [address] [id number] [address] [place] [address], [place] [address] Oct, [facility] [address] [id number] [address] [place] [address], [place] [address] 17 Sep, 2014 [facility] [address] [id number] [address] [place] [address], [place] [address] 17 Sep, 2014 [facility] [address] [id number] [address] [place] [address], [place] [address] 15 Sep, 2014 [facility] [address] [id number] [address] [place] [address], [place] [address] 15 Sep, 2014 [facility] [address] [id number] [address] [place] [address], [place] [address] 20 Aug, 2014 [facility] [address] [id number] [address] [place] [address], [place] [address] 20 Aug, 2014 [facility] [address] [id number] [address] [place] [address], [place] [address] 14 Aug, 2014 [facility] [address] [id number] [address] [place] [address], [place] [address] 14 Aug, 2014 [facility] [address] [id number] [address] [place] [address], [place] [address] Aug, [facility] [address] [id number] [address] [place] [address], [place] [address] Aug, [facility] [address] [id number] [address] [place] [address], [place] [address] 29 Jul, 2014 [facility] [address] [id number] [address] [place] [address], [place] [address] Jul, [facility] [address] [id number] [address] [place] [address], [place] [address] Jul, [facility] [address] [id number] [address] [place] [address], [place] [address] Jul, [facility] [address] [id number] [address] [place] [address], [place] [address] Jul, [facility] [address] [id number] [address] [place] [address], [place] [address] Jul, [facility] [address] [id number] [address] [place] [address], [place] [address] 27 Jun, 2013 [facility] [address] [id number] [address] [place] [address], [place] [address] 27 Sep, 2013 [facility] [address] [id number] [address] [place] [address], [place] [address] 26 Jun, 2013 [facility] [address] [id number] [address] [place] [address], [place] [address] 26 Sep, 2013 [facility] [address] [id number] [address] [place] [address], [place] [address] 26 Sep, 2013 [facility] [address] [id number] [address] [place] [address], [place] [address] 26 Sep, 2013 [facility] [address] [id number] [address] [place] [address], [place] [address] 16 Sep, 2013 [facility] [address] [id number] [address] [place] [address], [place] [address] 16 Jun, 2013 [facility] [address] [id number] [facility] [address] Jun, [facility] [address] [id number] [address] [place] [address], [place] [address] Jun, [facility] [address] [id number] [address] [place] [address], [place] [address] Jun, [facility] [address] [id number] [address] [place] [address], [place] [address] May, [facility] [address] [id number] [address] [place] [address], [place] [address] May, [facility] [address] [id number] [address] [place] [address], [place] [address] May, [facility] [address] [id number] [address] [place] [address], [place] [address] May, [facility] [address] [id number] [address] [place] [address], [place] [address] May, [facility] [address] [id number] [address] [place] [address], [place] [address] May, [facility] [address] [id number] [address] [place] [address], [place] [address] May, [facility] [address] [id number] [address] [place] [address], [place] [address] May, [facility] [address] [id number] [address] [place] [address], [place] [address] May, [facility] [address] [id number] [address] [place] [address], [place] [address] May, [facility] [address] [id number] [address] [place] [address], [place] [address] Apr, [facility] [address] [id number] [address] [place] [address], [place] [address] Apr, [facility] [address] [id number] [address] [place] [address], [place] [address] Apr, [facility] [address] [id number] [address] [place] [address], [place] [address] Apr, [facility] [address] [id number] [address] [place] [address], [place] [address] Apr, [facility] [address] [id number] [address] [place] [address], [place] [address] Apr, [facility] [address] [id number] [address] [place] [address], [place] [address] Apr, [facility] [address] [id number] [address] [place] [address], [place] [address] Apr, [facility] [address] [id number] [address] [place] [address], [place] [address] Apr, [facility] [address] [id number] [address] [place] [address], [place] [address] Apr, [facility] [address] [id number] [address] [place] [address], [place] [address] Mar, [facility] [address] [id number] [address] [place] [address], [place] [address] Mar, [facility] [address] [id number] [address] [place] [address], [place] [address] Mar, [facility] [address] [id number] [address] [place] [address], [place] [address] Mar, [facility] [address] [id number] [address] [place] [address], [place] [address] Mar, [facility] [address] [id number] [address] [place] [address], [place] [address] Mar, [facility] [address] [id number] [address] [place] [address], [place] [address] Mar, [facility] [address] [id number] [address] [place] [address], [place] [address] 16 Mar, 2014 [facility] [address] [id number] [address] [place] [address], [place] [address] 16 Mar, 2014 [facility] [address] [id number] [facility] [place] [address] Mar, [facility] [address] [id number] [address] [place] [address], [place] [address] Mar, [facility] [address] [id number] [address] [place] [address], [place] [address] Mar, [facility] [address] [id number] [address] [place] [address], [place] [address] Mar, [facility] [address] [id number] [address] [place] [address], [place] [address] Mar, [facility] [address] [id number] [address] [place] [address], [place] [address] Mar, [facility] [address] [id number] [address] [place] [address], [place] [address] Mar, [facility] [address] [id number] [address] [place] [address], [place] [address] Mar, [facility] [address] [id number] [address] [place] [address], [place] [address] Mar, [facility] [address] [id number] [address] [place] [address], [place] [address] Mar, [facility] [address] [id number] [address] [place] [address], [place] [address] Mar, [facility] [address] [id number] [address] [place] [address], [place] [address] February, [facility] [address] [id number] [address] [place] [address], [place] [address] February, [facility] [address] [id number] [address] [place] [address], [place] [address] February, [facility] [address] [id number] [address] [place] [address], [place] [address] February, [facility] [address] [id number] [facility] [place] [address] February, [facility] [address] [id number] [facility] [place] [address] February, [facility] [address] [id number] [facility] [place] [address] February, [facility] [address] [id number] [address] [place] [address], [place] [address] February, [facility] [address] [id number] [address] [place] [address], [place] [address] February, [facility] [address] [id number] [address] [place] [address], [place] [address] February, [facility] [address] [id number] [address] [place] [address], [place] [address] February, [facility] [address] [id number] [address] [place] [address], [place] [address] February, [facility] [address] [id number] [address] [place] [address], [place] [address] February, [facility] [address] [id number] [address] [place] [address], [place] [address] February, [facility] [address] [id number] [address] [place] [address], [place] [address] February, [facility] [address] [id number] [address] [place] [address], [place] [address] February, [facility] [address] [id number] [address] [place] [address], [place] [address] February, [facility] [address] [id number] [address] [place] [address], [place] [address] February, [facility] [address] [id number] [address] [place] [address], [place] [address] February, [facility] [address] [id number] [address] [place] [address], [place] [address] February, [facility] [address] [id number] [facility] [place] [address] February, [facility] [address] [id number] [address] [place] [address], [place] [address] Jan, [facility] [address] [id number] [address] [place] [address], [place] [address] Jan, [facility] [address] [id number] [address] [place] [address], [place] [address] Jan, [facility] [address] [id number] [address] [place] [address], [place] [address] Jan, [facility] [address] [id number] [address] [place] [address], [place] [address] Jan, [facility] [address] [id number] [address] [place] [address], [place] [address] Jan, [facility] [address] [id number] [address] [place] [address], [place] [address] Jan, [facility] [address] [id number] [address] [place] [address], [place] [address] Jan, [facility] [address] [id number] [address] [place] [address], [place] [address] Dec, [facility] [address] [id number] [address] [place] [address], [place] [address] Dec, [facility] [address] [id number] [address] [place] [address], [place] [address] 20 Dec, 2013 [facility] [address] [id number] [address] [place] [address], [place] [address] 19 Dec, 2013 [facility] [address] [id number] [address] [place] [address], [place] [address] 19 Dec, 2013 [facility] [address] [id number] [address] [place] [address], [place] [address] 15 Dec, 2013 [facility] [address] [id number] [address] [place] [address], [place] [address] 15 Dec, 2013 [facility] [address] [id number] [address] [place] [address], [place] [address] 11 Dec, 2013 [facility] [address] [id number] [address] [place] [address], [place] [address] 10 Dec, 2013 [facility] [address] [id number] [address] [place] [address], [place] [address] 10 Dec, 2013 [facility] [address] [id number] [address] [place] [address], [place] [address] 18 Nov, 2013 [facility] [address] [id number] [address] [place] [address], [place] [address] Nov, [facility] [address] [id number] [address] [place] [address], [place] [address] Nov, [facility] [address] [id number] [address] [place] [address], [place] [address] Nov, [facility] [address] [id number] [address] [place] [address], [place] [address] Nov, [facility] [address] [id number] [address] [place] [address], [place] [address] Oct, [facility] [address] [id number] [address] [place] [address], [place] [address] Oct, [facility] [address] [id number] [address] [place] [address], [place] [address] Oct, [facility] [address] [id number] [address] [place] [address], [place] [address] Sep, [facility] [address] [id number] [address] [place] [address], [place] [address] Sep, [facility] [address] [id number] [address] [place] [address], [place] [address] Sep, [facility] [address] [id number] [address] [place] [address], [place] [address] Sep, [facility] [address] [id number] [address] [place] [address], [place] [address] Aug, [facility] [address] [id number] [address] [place] [address], [place] [address] Aug, [facility] [address] [id number] [address] [place] [address], [place] [address] Jul, [facility] [address] [id number] [address] [place] [address], [place] [address] Jul, [facility] [address] [id number] [address] [place] [address], [place] [address] Jul, [facility] [address] [id number] [address] [place] [address], [place] [address] Jul, [facility] [address] [id number] [address] [place] [address], [place] [address] Jul, [facility] [address] [id number] [address] [place] [address], [place] [address] Jun, [facility] [address] [id number] [address] [place] [address], [place] [address] 25 Jun, 2013 [facility] [address] [id number] [address] [place] [address], [place] [address] 19 Jun, 2013 [facility] [address] [id number] [address] [place] [address] 18 Jun, 2013 [facility] [address] [id number] [address] [place] [address] 16 Jun, 2013 [facility] [address] [id number] [address] [place] [address], [place] [address] 12 Jun, 2013 [facility] [address] [id number] [address] [place] [address], [place] [address] 11 Jun, 2013 [facility] [address] [id number] [address] [place] [address] 30 May, 2013 [facility] [address] [id number] [address] [place] [address] May, [facility] [address] [id number] [address] [place] [address], [place] [address] Apr, [facility] [address] [id number] [address] [place] [address], [place] [address] Apr, [facility] [address] [id number] [address] [place] [address], [place] [address] Apr, [facility] [address] [id number] [address] [place] [address], [place] [address] Mar, [facility] [address] [id number] [address] [place] [address], [place] [address] Mar, [facility] [address] [id number] [address] [place] [address], [place] [address] February, [facility] [address] [id number] [address] [place] [address], [place] [address] February, [facility] [address] [id number] [address] [place] [address], [place] [address] February, [facility] [address] [id number] [address] [place] [address], [place] [address] February, [facility] [address] [id number] [address] [place] [address], [place] [address] Jan, [facility] [address] [id number] [address] [place] [address], [place] [address] Jan, [facility] [address] [id number] [address] [place] [address], [place] [address] Jan, [facility] [address] [id number] [address] [place] [address], [place] [address] 29 Dec, 2012 [facility] [address] [id number] [address] [place] [address], [place] [address] Dec, [facility] [address] [id number] [address] [place] [address], [place] [address] Dec, [facility] [address] [id number] [address] [place] [address], [place] [address] Dec, [facility] [address] [id number] [address] [place] [address], [place] [address] Nov, [facility] [address] [id number] [address] [place] [address], [place] [address] Nov, [facility] [address] [id number] [address] [place] [address], [place] [address] Oct, [facility] [address] [id number] [address] [place] [address], [place] [address] Oct, [facility] [address] [id number] [address] [place] [address], [place] [address] Oct, [facility] [address] [id number] [address] [place] [address], [place] [address] Oct, [facility] [address] [id number] [address] [place] [address], [place] [address] Aug, [facility] [address] [id number] [address] [place] [address], [place] [address] Aug, [facility] [address] [id number] [address] [place] [address], [place] [address] Jun, [facility] [address] [id number] [address] [place] [address], [place] [address] May, [facility] [address] [id number] [address] [place] [address], [place] [address] May, [facility] [address] [id number] [address] [place] [address], [place] [address] Apr, [facility] [address] [id number] [address] [place] [address], [place] [address] Apr, [facility] [address] [id number] [address] [place] [address], [place] [address] Apr, [facility] [address] [id number] [address] [place] [address], [place] [address] 20 Mar, 2012 [facility] [address] [id number] [address] [place] [address], [place] [address] Mar, [facility] [address] [id number] [address] [place] [address], [place] [address] 13 Mar, 2012 [facility] [address] [id number] [address] [place] [address], [place] [address] Mar, [facility] [address] [id number] [address] [place] [address], [place] [address] 04 Mar, 2012 [facility] [address] [id number] [address] [place] [address], [place] [address] February, [facility] [address] [id number] [address] [place] [address], [place] [address] February, [facility] [address] [id number] [address] [place] [address], [place] [address] February, [facility] [address] [id number] [address] [place] [address], [place] [address] February, [facility] [address] [id number] [address] [place] [address], [place] [address] February, [facility] [address] [id number] [address] [place] [address], [place] [address] February, [facility] [address] [id number] [address] [place] [address], [place] [address] February, [facility] [address] [id number] [address] [place] [address], [place] [address] Jan, [facility] [address] [id number] [address] [place] [address], [place] [address] 18 Jan, 2012 [facility] [address] [id number] [address] [place] [address], [place] [address] 17 Jan, 2012 [facility] [address] [id number] [address] [place] [address], [place] [address] 13 Jan, 2012 [facility] [address] [id number] [address] [place] [address], [place] [address] 10 Jan, 2012 [facility] [address] [id number] [address] [place] [address], [place] [address] 04 Jan, 2012 [facility] [address] [id number] [address] [place] [address], [place] [address] 30 Dec, 2011 [facility] [address] [id number] [address] [place] [address], [place] [address] 24 Dec, 2011 [facility] [address] [id number] [address] [place] [address], [place] [address] 20 Dec, 2011 [facility] [address] [id number] [address] [place] [address], [place] [address] 13 Dec, 2011 [facility] [address] [id number] [address] [place] [address], [place] [address] Dec, [facility] [address] [id number] [address] [place] [address], [place] [address] 28 Nov, 2011 [facility] [address] [id number] [address] [place] [address], [place] [address] Nov, [facility] [address] [id number] [address] [place] [address], [place] [address] 25 Nov, 2011 [facility] [address] [id number] [address] [place] [address], [place] [address] 14 Nov, 2011 [facility] [address] [id number] [address] [place] [address], [place] [address] Nov, [facility] [address] [id number] [address] [place] [address], [place] [address] Nov, [facility] [address] [id number] [address] [place] [address], [place] [address] Oct, [facility] [address] [id number] [address] [place] [address], [place] [address] Oct, [facility] [address] [id number] [address] [place] [address], [place] [address] Oct, [facility] [address] [id number] [address] [place] [address], [place] [address] Oct, [facility] [address] [id number] [address] [place] [address], [place] [address] Oct, [facility] [address] [id number] [address] [place] [address], [place] [address] Sep, [facility] [address] [id number] [address] [place] [address], [place] [address] Sep, [facility] [address] [id number] [address] [place] [address], [place] [address] Sep, [facility] [address] [id number] [address] [place] [address], [place] [address] 14 Sep, 2011 [facility] [address] [id number] [address] [place] [address], [place] [address] Sep, [facility] [address] [id number] [address] [place] [address], [place] [address] Sep, [facility] [address] [id number] [address] [place] [address], [place] [address] Sep, [facility] [address] [id number] [address] [place] [address], [place] [address] Sep, [facility] [address] [id number] [address] [place] [address], [place] [address] Sep, [facility] [address] [id number] [address] [place] [address], [place] [address] Aug, [facility] [address] [id number] [address] [place] [address], [place] [address] Aug, [facility] [address] [id number] [address] [place] [address], [place] [address] Aug, [facility] [address] [id number] [address] [place] [address], [place] [address] Aug, [facility] [address] [id number] [address] [place] [address], [place] [address] Aug, [facility] [address] [id number] [address] [place] [address], [place] [address] Aug, [facility] [address] [id number] [address] [place] [address], [place] [address] Aug, [facility] [address] [id number] [address] [place] [address], [place] [address] Aug, [facility] [address] [id number] [address] [place] [address], [place] [address] Aug, [facility] [address] [id number] [address] [place] [address], [place] [address] Aug, [facility] [address] [id number] [address] [place] [address], [place] [address] Aug, [facility] [address] [id number] [address] [place] [address], [place] [address] Aug, [facility] [address] [id number] [address] [place] [address], [place] [address] Jul, [facility] [address] [id number] [address] [place] [address], [place] [address] Jul, [facility] [address] [id number] [address] [place] [address], [place] [address] 24 Jul, 2011 [facility] [address] [id number] [address] [place] [address], [place] [address] Jul, [facility] [address] [id number] [address] [place] [address], [place] [address] Jul, [facility] [address] [id number] [address] [place] [address], [place] [address] 19 Jul, 2011 [facility] [address] [id number] [address] [place] [address], [place] [address] 18 Jul, 2011 [facility] [address] [id number] [address] [place] [address] 11 Jul, 2011 [facility] [address] [id number] [address] [place] [address] Jul, [facility] [address] [id number] [address] [place] [address] Jul, [facility] [address] [id number] [address] [place] [address] Nov, [facility] [address] [facility] [id number] [address] [place] [address] Aug, [facility] [address] [facility] [id number] [address] [place] [address] Aug, [facility] [address] [facility] [id number] [address] [place] [address] Aug, [facility] [address] [facility] [id number] [address] [place] [address] Aug, [facility] [address] [facility] [id number] [address] [place] [address] Jul, IMMUNIZATIONS No Known Immunizations SOCIAL HISTORY [...]
--- OUTSIDE RECORDS SUMMARY | 2020-04-04 02:27 | XMS REPORT ---
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 Name Role Phone BRYAN Roca Unavailable PROBLEMS Type Condition ICD9-CM Code [id number] Code Onset Dates Condition S tatus SNOMED Code Problem Paranoid schizophrenia F20.0 Active 68552467 Problem Borderline personality disorder F60.3 Active 22217866 Problem Schizoaffective disorder, depressive type F25.1 Active 28845951 Problem Schizoaffective disorder, unspecified F25.9 Active 33971718 Problem Attention deficit hyperactivity disorder (ADHD), inattentive type, 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 24838784 Problem Posttraumatic stress disorder F43.10 Active 24468455 Problem High risk medication use Z79.899 Activ e [id number] ALLERGIES No Information ENCOUNTERS Encounter Location Date Diagnosis [facility] [address] [facility] [id number] [address] [place] [id number] Jan, [facility] [address] [facility] [id number] [address] [place] [address] Jan, [facility] [address] [facility] [id number] [address] [place] [address] Jan, [facility] [address] [facility] [id number] [address] [place] [address] Jan, Posttraumatic stress disorde r F43.10 ; Attention deficit hyperactivity disorder (ADHD), inattentive type, 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 ; Borderline personality disorder F60.3 and Schizoaffective disorder, depressive type F25.1 [facility] [address] [facility] [id number] [address] [place] [address] Dec, Paranoid schizophrenia F20.0 ; Attention deficit hyperactivity disorder (ADHD), inattentive type, 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 ; Posttraumatic stress disorder F43.10 and Borderline personality disorder F60.3 [facility] [address] [place] [id number] [address] [place] [address] Nov, Paranoid schizophrenia F20.0 ; Attention deficit hyperactivity disorder (ADHD), inattentive type, 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 ; Posttraumatic stress disorder F43.10 and Borderline personality disorder F60.3 [facility] [address] [place] [id number] [address] [place] [phone] Nov, [facility] [address] [facility] [id number] [address] [place] [address] Oct, Paranoid schizophrenia F20.0 ; Attention deficit hyperactivity disorder (ADHD), inattentive type, 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 ; Posttraumatic stress disorder F43.10 and Borderline personality disorder F60.3 [facility] [address] [place] [id number] [address] [place] [address] Oct, [facility] [address] [id number] [address] [place] [address] Sep, Paranoid schizophrenia F20.0 ; Attention deficit hyperactivity disorder (ADHD), inattentive type, 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 ; Posttraumatic stress disorder F43.10 and Borderline personality disorder F60.3 [facility] [address] [id number] [address] [place] [id number] Aug, Paranoid schizophrenia F20.0 ; Attention deficit hyperactivity disorder (ADHD), inattentive type, 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 ; Posttraumatic stress disorder F43.10 and Borderline personality disorder F60.3 [facility] [address] [place] [id number] [address] [place] [address] Aug, [facility] [address] [id number] [address] [place] [address] Aug, Acute bronchitis, unspecifie d organism J20.9 [facility] [address] [id number] [address] [place] [id number] Aug, [facility] [address] [place] [id number] [address] [place] [address] Aug, [facility] [address] [facility] [id number] [address] [place] [address] Jul, Paranoid schizophrenia F20.0 ; Attention deficit hyperactivity disorder (ADHD), inattentive type, 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 ; Posttraumatic stress disorder F43.10 and Borderline personality disorder F60.3 [facility] [address] [facility] [id number] [address] [place] [address] Jul, [facility] [address] [facility] [id number] [address] [place] [address] Jun, Paranoid schizophrenia F20.0 ; Other assisted (current) drug therapy Z79.899 ; Attention deficit hyperactivity disorder (ADHD), inattentive type, 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 ; Posttraumatic stress disorder F43.10 and Borderline personality disorder F60.3 [facility] [address] [facility] [id number] [address] [place] [address] Jun, Paranoid schizophrenia F20.0 ; Attention deficit hyperactivity disorder (ADHD), inattentive type, 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 ; Posttraumatic stress disorder F43.10 ; Borderline personality disorder F60.3 and Other assisted (current) drug therapy Z79.899 [facility] [address] [facility] [id number] [address] [place] [address] Apr, Paranoid schizophrenia F20.0 ; Posttraumatic stress disorder F43.10 ; Attention deficit hyperactivity disorder (ADHD), inattentive type, 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 and Borderline personality disorder F60.3 [facility] [address] [facility] [id number] [address] [place] [address] Apr, Paranoid schizophrenia F20.0 [facility] [address] [facility] [id number] [address] [place] [address] Apr, Paranoid schizophrenia F20.0 ; Posttraumatic stress disorder F43.10 ; Attention deficit hyperactivity disorder (ADHD), inattentive type, 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 and Borderline personality disorder F60.3 [facility] [address] [facility] [id number] [address] [place] [address] Mar, Paranoid schizophrenia F20.0 [facility] [address] [facility] [id number] [address] [place] [address] Mar, Paranoid schizophrenia F20.0 ; Posttraumatic stress disorder F43.10 ; Attention deficit hyperactivity disorder (ADHD), inattentive type, 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 and Borderline personality disorder F60.3 [facility] [address] [place] [id number] [address] [place] [address] February, Paranoid schizophrenia F20.0 [facility] [address] [facility] [id number] [address] [place] [address] Jan, Paranoid schizophrenia F20.0 ; Posttraumatic stress disorder F43.10 ; Attention deficit hyperactivity disorder (ADHD), inattentive type, 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 and Borderline personality disorder F60.3 [facility] [address] [id number] [address] [place] [address] Dec, Paranoid schizophrenia F20.0 ; Posttraumatic stress disorder F43.10 ; Attention deficit hyperactivity disorder (ADHD), inattentive type, 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 and Borderline personality disorder F60.3 [facility] [address] [id number] [address] [place] [id number] Dec, Paranoid schizophrenia F20.0 ; Posttraumatic stress disorder F43.10 ; Attention deficit hyperactivity disorder (ADHD), inattentive type, 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 and Borderline personality disorder F60.3 [facility] [address] [id number] [address] [place] [address] Oct, Paranoid schizophrenia F20.0 ; Posttraumatic stress disorder F43.10 ; Attention deficit hyperactivity disorder (ADHD), inattentive type, 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10 ; Attention deficit hyperactivity disorder (ADHD), inattentive type, 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 and Borderline personality disorder F60.3 [facility] [address] [id number] [address] [place] [address] Jul, Dry skin dermatitis L85.3 [facility] [address] [id number] [address] [place] [address] Jul, [facility] [address] [facility] [id number] [address] [place] [id number] Jul, Paranoid schizophrenia F20.0 [facility] [address] [id number] [address] [place] [id number] May, Paranoid schizophrenia F20.0 ; Posttraumatic stress disorder F43.10 ; Attention deficit hyperactivity disorder (ADHD), inattentive type, 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 and Borderline personality disorder F60.3 [facility] [address] [id number] [address] [place] [address] May, [facility] [address] [id number] [address] [place] [address] May, Paranoid schizophrenia F20.0 [facility] [address] [facility] [id number] [address] [place] [address] May, Paranoid schizophrenia F20.0 ; Posttraumatic stress disorder F43.10 ; Attention deficit hyperactivity disorder (ADHD), inattentive type, 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 and Borderline personality disorder F60.3 [facility] [address] [id number] [address] [place] [address] Apr, [facility] [address] [id number] [address] [place] [address] Apr, Paranoid schizophrenia F20.0 ; Posttraumatic stress disorder F43.10 ; Attention deficit hyperactivity disorder (ADHD), inattentive type, 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 and Borderline personality disorder F60.3 [facility] [address] [id number] [address] [place] [address] Apr, [facility] [address] [id number] [address] [place] [address] Apr, Schizoaffective disorder, de pressive type F25.1 and Borderline personality disorder F60.3 [facility] [address] [id number] [address] [place] [address] Apr, Paranoid schizophrenia F20.0 ; Posttraumatic stress disorder F43.10 ; Attention deficit hyperactivity disorder (ADHD), inattentive type, 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 and Borderline personality disorder F60.3 [facility] [address] [id number] [address] [place] [address] Apr, [facility] [address] [id number] [address] [place] [address] Apr, Paranoid schizophrenia F20.0 ; Posttraumatic stress disorder F43.10 ; Attention deficit hyperactivity disorder (ADHD), inattentive type, 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 and Borderline personality disorder F60.3 [facility] [address] [id number] [address] [place] [address] Apr, [facility] [address] [id number] [address] [place] [address] Mar, Paranoid schizophrenia F20.0 [facility] [address] [id number] [address] [place] [address] Mar, [facility] [address] [id number] [address] [place] [address] Mar, Paranoid schizophrenia F20.0 ; Posttraumatic stress disorder F43.10 ; Attention deficit hyperactivity disorder (ADHD), inattentive type, 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 and Borderline personality disorder F60.3 [facility] [address] [id number] [address] [place] [address] February, Paranoid schizophrenia F20.0 [facility] [address] [id number] [address] [place] [address] February, Paranoid schizophrenia F20.0 ; Posttraumatic stress disorder F43.10 ; Attention deficit hyperactivity disorder (ADHD), inattentive type, 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 and Borderline personality disorder F60.3 [facility] [address] [facility] [id number] [address] [place] [address] February, Paranoid schizophrenia F20.0 ; Posttraumatic stress disorder F43.10 ; Attention deficit hyperactivity disorder (ADHD), inattentive type, 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 and Borderline personality disorder F60.3 [facility] [address] [id number] [address] [place] [id number] February, [facility] [address] [id number] [address] [place] [address] February, Paranoid schizophrenia F20.0 [facility] [address] [id number] [address] [place] [address] February, Paranoid schizophrenia F20.0 [facility] [address] [id number] [address] [place] [address] February, Paranoid schizophrenia F20.0 ; Posttraumatic stress disorder F43.10 ; Attention deficit hyperactivity disorder (ADHD), inattentive type, 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 and Borderline personality disorder F60.3 [facility] [address] [id number] [address] [place] [address] Jan, Paranoid schizophrenia F20.0 ; Posttraumatic stress disorder F43.10 ; Attention deficit hyperactivity disorder (ADHD), inattentive type, 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 and Borderline personality disorder F60.3 [facility] [address] [facility] [id number] [address] [place] [address] Jan, Paranoid schizophrenia F20.0 [facility] [address] [id number] [address] [place] [address] Jan, Paranoid schizophrenia F20.0 [facility] [address] [id number] [address] [place] [address] Jan, Paranoid schizophrenia F20.0 ; Posttraumatic stress disorder F43.10 ; Attention deficit hyperactivity disorder (ADHD), inattentive type, 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 and Borderline personality disorder F60.3 [facility] [address] [id number] [address] [place] [address] Dec, [facility] [address] [id number] [address] [place] [address] Nov, Paranoid schizophrenia F20.0 ; Posttraumatic stress disorder F43.10 ; Attention deficit hyperactivity disorder (ADHD), inattentive type, 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 and Borderline personality disorder F60.3 [facility] [address] [id number] [address] [place] [address] Nov, [facility] [address] [id number] [address] [place] [address] Oct, Paranoid schizophrenia F20.0 [facility] [address] [id number] [address] [place] [address] Oct, Paranoid schizophrenia F20.0 ; Posttraumatic stress disorder F43.10 ; Attention deficit hyperactivity disorder (ADHD), inattentive type, 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 ; Borderline personality disorder F60.3 and 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 [facility] [address] [id number] [address] [place] [address] Oct, [facility] [address] [id number] [address] [place] [id number] Oct, [facility] [address] [id number] [address] [place] [address] Sep, [facility] [address] [id number] [address] [place] [address] Sep, Paranoid schizophrenia F20.0 ; Posttraumatic stress disorder F43.10 ; Attention deficit hyperactivity disorder (ADHD), inattentive type, 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 and Borderline personality disorder F60.3 [facility] [address] [id number] [address] [place] [address] Sep, Paranoid schizophrenia F20.0 [facility] [address] [id number] [address] [place] [address] Aug, Paranoid schizophrenia F20.0 ; Posttraumatic stress disorder F43.10 ; Attention deficit hyperactivity disorder (ADHD), inattentive type, 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 and Borderline personality disorder F60.3 [facility] [address] [id number] [address] [place] [address] Aug, Paranoid schizophrenia F20.0 ; Posttraumatic stress disorder F43.10 ; Attention deficit hyperactivity disorder (ADHD), inattentive type, 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 and Borderline personality disorder F60.3 [facility] [address] [facility] [id number] [address] [place] [address] Aug, [facility] [address] [id number] [address] [place] [address] Jul, Paranoid schizophrenia F20.0 ; Posttraumatic stress disorder F43.10 ; Attention deficit hyperactivity disorder (ADHD), inattentive type, 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 and Borderline personality disorder F60.3 [facility] [address] [facility] [id number] [address] [place] [address] Jul, Paranoid schizophrenia F20.0 [facility] [address] [id number] [address] [place] [address] Jul, Paranoid schizophrenia F20.0 ; Posttraumatic stress disorder F43.10 ; Attention deficit hyperactivity disorder (ADHD), inattentive type, 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 and Borderline personality disorder F60.3 [facility] [address] [id number] [address] [place] [address] Jun, Paranoid schizophrenia F20.0 ; Posttraumatic stress disorder F43.10 ; Attention deficit hyperactivity disorder (ADHD), inattentive type, 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 and Borderline personality disorder F60.3 [facility] [address] [id number] [address] [place] [address] May, Other assisted (current) dr ug therapy Z79.899 [facility] [address] [id number] [address] [place] [id number] May, [facility] [address] [id number] [address] [place] [address] May, [facility] [address] [id number] [address] [place] [address] May, Attention deficit hyperactiv ity disorder (ADHD), inattentive type, mild F90.0 [facility] [address] [id number] [address] [place] [address] May, [facility] [address] [id number] [address] [place] [address] May, Attention deficit hyperactiv ity disorder (ADHD), inattentive type, mild F90.0 [facility] [address] [id number] [address] [place] [address] May, Paranoid schizophrenia F20.0 ; Posttraumatic stress disorder F43.10 ; Attention deficit hyperactivity disorder (ADHD), inattentive type, 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 and 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 [facility] [address] [id number] [address] [place] [address] Apr, Paranoid schizophrenia F20.0 [facility] [address] [id number] [address] [place] [address] Apr, Paranoid schizophrenia F20.0 ; Posttraumatic stress disorder F43.10 and Attention deficit hyperactivity disorder (ADHD), inattentive type, 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 [facility] [address] [id number] [address] [place] [address] February, [facility] [address] [id number] [address] [place] [address] February, Paranoid schizophrenia F20.0 ; Posttraumatic stress disorder F43.10 and Attention deficit hyperactivity disorder (ADHD), inattentive type, 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 [facility] [address] [id number] [address] [place] [address] February, Paranoid schizophrenia F20.0 ; Posttraumatic stress disorder F43.10 and Attention deficit hyperactivity disorder (ADHD), inattentive type, 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 [facility] [address] [id number] [address] [place] [address] Jan, Paranoid schizophrenia F20.0 ; Posttraumatic stress disorder F43.10 and Attention deficit hyperactivity disorder (ADHD), inattentive type, 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 [facility] [address] [id number] [address] [place] [id number] Dec, Dental examination Z01.20 [facility] [address] [id number] [address] [place] [id number] Nov, Dental examination Z01.20 [facility] [address] [id number] [address] [place] [id number] Nov, Dental examination Z01.20 [facility] [address] [id number] [address] [place] [id number] Nov, Dental caries K02.9 [facility] [address] [id number] [address] [place] [address] Nov, High risk medication use Z79 .899 [facility] [address] [id number] [address] [place] [address] Nov, Paranoid schizophrenia F20.0 ; Posttraumatic stress disorder F43.10 ; Attention deficit hyperactivity disorder (ADHD), inattentive type, 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 and Borderline personality disorder in adult F60.3 [facility] [address] [id number] [address] [place] [id number] Oct, Dental caries K02.9 [facility] [address] [id number] [address] [place] [phone] 05 Sep, 2016 Paranoid schizophrenia F20.0 ; Posttraumatic stress disorder F43.10 and Attention deficit hyperactivity disorder (ADHD), inattentive type, 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 [facility] [address] [id number] [address] [place] [id number] Jul, [facility] [address] [id number] [address] [place] [address] Jun, Paranoid schizophrenia F20.0 ; Posttraumatic stress disorder F43.10 and Attention deficit hyperactivity disorder (ADHD), inattentive type, 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 [facility] [address] [id number] [address] [place] [id number] Jun, Dental examination Z01.20 [facility] [address] [id number] [address] [place] [address] Jun, [facility] [address] [id number] [address] [place] [address] May, Paranoid schizophrenia F20.0 [facility] [address] [id number] [address] [place] [address] May, Paranoid schizophrenia F20.0 ; Posttraumatic stress disorder F43.10 and Attention deficit hyperactivity disorder (ADHD), inattentive type, 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 [facility] [address] [id number] [address] [place] [address] [place] [address] May, [facility] [address] [id number] [address] [place] [address] May, Paranoid schizophrenia F20.0 [facility] [address] [id number] [address] [place] [id number] May, [facility] [address] [id number] [address] [place] [id number] May, Paranoid schizophrenia F20.0 [facility] [address] [id number] [address] [place] [id number] May, Schizoaffective disorder, un specified F25.9 [facility] [facility] [address] [id number] [address] [place] [address] May, Schizoaffective disorder, un specified F25.9 [facility] [address] [id number] [address] [place] [address] May, [facility] [address] [id number] [address] [place] [address] May, Paranoid schizophrenia F20.0 [facility] [address] [id number] [address] [place] [address] May, Paranoid schizophrenia F20.0 ; Posttraumatic stress disorder F43.10 and Attention deficit hyperactivity disorder (ADHD), inattentive type, 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 [facility] [address] [id number] [address] [place] [address] Mar, [facility] [address] [id number] [address] [place] [address] Mar, Paranoid schizophrenia F20.0 ; Posttraumatic stress disorder F43.10 and Attention deficit hyperactivity disorder (ADHD), inattentive type, 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 [facility] [address] [id number] [address] [place] [address] Mar, Paranoid schizophrenia F20.0 [facility] [address] [id number] [address] [place] [address] Mar, Paranoid schizophrenia F20.0 ; Attention deficit hyperactivity disorder (ADHD), inattentive type, 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 and Posttraumatic stress disorder F43.10 [facility] [address] [id number] [address] [place] [address] Mar, [facility] [address] [id number] [address] [place] [address] Mar, Paranoid schizophrenia F20.0 ; Posttraumatic stress disorder F43.10 and Attention deficit hyperactivity disorder (ADHD), inattentive type, 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 [facility] [address] [id number] [address] [place] [address] February, [facility] [address] [id number] [address] [place] [address] February, [facility] [address] [id number] [address] [place] [address] February, [facility] [address] [id number] [address] [place] [address] February, [facility] [address] [id number] [address] [place] [address] Jan, Paranoid schizophrenia F20.0 [facility] [address] [id number] [address] [place] [address] [id number] Jan, Dental examination Z01.20 [facility] [address] [id number] [address] [place] [address] [id number] Jan, Dental caries K02.9 [facility] [address] [id number] [address] [place] [address] [id number] Jan, Dental examination Z01.20 [facility] [address] [id number] [address] [place] [address] [id number] Dec, Encounter for dental examina tion Z01.20 [facility] [address] [id number] [address] [place] [address] Dec, Paranoid schizophrenia F20.0 [facility] [address] [id number] [address] [place] [address] [id number] Dec, Dental examination Z01.20 [facility] [address] [id number] [address] [place] [address] Dec, [facility] [address] [id number] [address] [place] [address] Dec, Paranoid schizophrenia F20.0 ; Posttraumatic stress disorder F43.10 and Attention deficit hyperactivity disorder (ADHD), inattentive type, 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 [facility] [address] [id number] [address] [place] [address] Nov, Schizoaffective disorder, un specified F25.9 [facility] [address] [id number] [address] [place] [address] Oct, Paranoid schizophrenia F20.0 [facility] [address] [id number] [address] [place] [address] Oct, [facility] [address] [id number] [address] [place] [address] Sep, Paranoid schizophrenia F20.0 ; Posttraumatic stress disorder F43.10 and Attention deficit hyperactivity disorder (ADHD), inattentive type, 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 [facility] [address] [id number] [address] [place] [address] Sep, [facility] [address] [facility] [id number] [address] [place] [address] Sep, Paranoid schizophrenia F20.0 ; Posttraumatic stress disorder F43.10 and Attention deficit hyperactivity disorder (ADHD), inattentive type, 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 [facility] [address] [id number] [address] [place] [address] Aug, Paranoid schizophrenia F20.0 [facility] [address] [id number] [address] [place] [address] Aug, [facility] [address] [facility] [id number] [address] [place] [address] Aug, Posttraumatic stress disorde r F43.10 ; Paranoid schizophrenia F20.0 and Attention deficit hyperactivity disorder (ADHD), inattentive type, 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 [facility] [address] [facility] [id number] [address] [place] [address] Jul, Bipolar disorder, unspecifie d F31.9 [facility] [address] [facility] [id number] [address] [place] [address] Jul, [facility] [address] [facility] [id number] [address] [place] [address] Jun, [facility] [address] [facility] [id number] [address] [place] [address] Jun, Schizoaffective disorder, ch ronic 295.72 ; Posttraumatic stress disorder 309.81 and Attention deficit disorder of childhood without mention of hyperactivity 314.00 [facility] [address] [id number] [address] [place] [address] May, [facility] [address] [facility] [id number] [address] [place] [address] May, [facility] [address] [id number] [address] [place] [address] May, Schizoaffective disorder, ch ronic 295.72 ; Posttraumatic stress disorder 309.81 ; Attention deficit disorder of childhood without mention of hyperactivity 314.00 and Bipolar disorder, unspecified 296.80 [facility] [address] [facility] [id number] [address] [place] [address] Apr, Schizoaffective disorder, ch ronic 295.72 [facility] [address] [facility] [id number] [address] [place] [address] Apr, [facility] [address] [facility] [id number] [address] [place] [address] Apr, Schizoaffective disorder, ch ronic 295.72 ; Posttraumatic stress disorder 309.81 and Attention deficit disorder of childhood without mention of hyperactivity 314.00 [facility] [address] [id number] [address] [place] [address] Mar, Disorganized schizophrenia, 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 [facility] [address] [id number] [address] [place] [address] Mar, [facility] [address] [id number] [address] [place] [address] Mar, [facility] [address] [id number] [address] [place] [address] Mar, [facility] [address] [id number] [address] [place] [address] Mar, [facility] [address] [id number] [address] [place] [address] February, Schizoaffective disorder, ch ronic 295.72 [facility] [address] [id number] [address] [place] [address] February, [facility] [address] [id number] [address] [place] [address] February, Attention 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 ; Posttraumatic stress disorder 309.81 and Schizoaffective disorder, chronic 295.72 [facility] [address] [id number] [address] [place] [address] 29 Jan, 2015 [facility] [address] [id number] [address] [place] [address] 14 Jan, 2015 [facility] [address] [id number] [address] [place] [address] Jan, [facility] [address] [facility] [id number] [address] [place] [address] Dec, [facility] [address] [id number] [address] [place] [address] Dec, [facility] [address] [id number] [address] [place] [address] Dec, [facility] [address] [id number] [address] [place] [address], [place] [address] Dec, [facility] [address] [id number] [address] [place] [address], [place] [address] Dec, [facility] [address] [id number] [address] [place] [address], [place] [address] Dec, [facility] [address] [id number] [address] [place] [address], [place] [address] Dec, [facility] [address] [id number] [address] [place] [address], [place] [address] Dec, [facility] [address] [id number] [address] [place] [address], [place] [address] Nov, 2014 [facility] [address] [id number] [address] [place] [address], [place] [address] Nov, [facility] [address] [id number] [address] [place] [address], [place] [address] Nov, 2014 [facility] [address] [id number] [address] [place] [address], [place] [address] Nov, 2014 [facility] [address] [id number] [address] [place] [address], [place] [address] Nov, 2014 [facility] [address] [id number] [address] [place] [address], [place] [address] Nov, 2014 [facility] [address] [id number] [address] [place] [address], [place] [address] Nov, 2014 [facility] [address] [id number] [address] [place] [address], [place] [address] Nov, 2014 [facility] [address] [id number] [address] [place] [address], [place] [address] Nov, 2014 [facility] [address] [id number] [address] [place] [address], [place] [address] Nov, 2014 [facility] [address] [id number] [address] [place] [address], [place] [address] Oct, [facility] [address] [id number] [address] [place] [address], [place] [address] Oct, [facility] [address] [id number] [address] [place] [address], [place] [address] Oct, [facility] [address] [id number] [address] [place] [address], [place] [address] Oct, [facility] [address] [id number] [address] [place] [address], [place] [address] 15 Oct, 2014 [facility] [address] [id number] [address] [place] [address], [place] [address] Oct, [facility] [address] [id number] [address] [place] [address], [place] [address] Oct, [facility] [address] [id number] [address] [place] [address], [place] [address] 17 Sep, 2014 [facility] [address] [id number] [address] [place] [address], [place] [address] 17 Sep, 2014 [facility] [address] [id number] [address] [place] [address], [place] [address] 15 Sep, 2014 [facility] [address] [id number] [address] [place] [address], [place] [address] 15 Sep, 2014 [facility] [address] [id number] [address] [place] [address], [place] [address] 20 Aug, 2014 [facility] [address] [id number] [address] [place] [address], [place] [address] 20 Aug, 2014 [facility] [address] [id number] [address] [place] [address], [place] [address] 14 Aug, 2014 [facility] [address] [id number] [address] [place] [address], [place] [address] 14 Aug, 2014 [facility] [address] [id number] [address] [place] [address], [place] [address] Aug, [facility] [address] [id number] [address] [place] [address], [place] [address] Aug, [facility] [address] [id number] [address] [place] [address], [place] [address] 29 Jul, 2014 [facility] [address] [id number] [address] [place] [address], [place] [address] Jul, [facility] [address] [id number] [address] [place] [address], [place] [address] Jul, [facility] [address] [id number] [address] [place] [address], [place] [address] Jul, [facility] [address] [id number] [address] [place] [address], [place] [address] Jul, [facility] [address] [id number] [address] [place] [address], [place] [address] Jul, [facility] [address] [id number] [address] [place] [address], [place] [address] 27 Jun, 2013 [facility] [address] [id number] [address] [place] [address], [place] [address] 27 Sep, 2013 [facility] [address] [id number] [address] [place] [address], [place] [address] 26 Jun, 2013 [facility] [address] [id number] [address] [place] [address], [place] [address] 26 Sep, 2013 [facility] [address] [id number] [address] [place] [address], [place] [address] 26 Sep, 2013 [facility] [address] [id number] [address] [place] [address], [place] [address] 26 Sep, 2013 [facility] [address] [id number] [address] [place] [address], [place] [address] 16 Sep, 2013 [facility] [address] [id number] [address] [place] [address], [place] [address] 16 Jun, 2013 [facility] [address] [id number] [facility] [place] [address] Jun, [facility] [address] [id number] [address] [place] [address], [place] [address] Jun, [facility] [address] [id number] [address] [place] [address], [place] [address] Jun, [facility] [address] [id number] [address] [place] [address], [place] [address] May, [facility] [address] [id number] [address] [place] [address], [place] [address] May, [facility] [address] [id number] [address] [place] [address], [place] [address] May, [facility] [address] [id number] [address] [place] [address], [place] [address] May, [facility] [address] [id number] [address] [place] [address], [place] [address] May, [facility] [address] [id number] [address] [place] [address], [place] [address] May, [facility] [address] [id number] [address] [place] [address], [place] [address] May, [facility] [address] [id number] [address] [place] [address], [place] [address] May, [facility] [address] [id number] [address] [place] [address], [place] [address] May, [facility] [address] [id number] [address] [place] [address], [place] [address] May, [facility] [address] [id number] [address] [place] [address], [place] [address] Apr, [facility] [address] [id number] [address] [place] [address], [place] [address] Apr, [facility] [address] [id number] [address] [place] [address], [place] [address] Apr, [facility] [address] [id number] [address] [place] [address], [place] [address] Apr, [facility] [address] [id number] [address] [place] [address], [place] [address] Apr, [facility] [address] [id number] [address] [place] [address], [place] [address] Apr, [facility] [address] [id number] [address] [place] [address], [place] [address] Apr, [facility] [address] [id number] [address] [place] [address], [place] [address] Apr, [facility] [address] [id number] [address] [place] [address], [place] [address] Apr, [facility] [address] [id number] [address] [place] [address], [place] [address] Apr, [facility] [address] [id number] [address] [place] [address], [place] [address] Mar, [facility] [address] [id number] [address] [place] [address], [place] [address] Mar, [facility] [address] [id number] [address] [place] [address], [place] [address] Mar, [facility] [address] [id number] [address] [place] [address], [place] [address] Mar, [facility] [address] [id number] [address] [place] [address], [place] [address] Mar, [facility] [address] [id number] [address] [place] [address], [place] [address] Mar, [facility] [address] [id number] [address] [place] [address], [place] [address] Mar, [facility] [address] [id number] [address] [place] [address], [place] [address] 16 Mar, 2014 [facility] [address] [id number] [address] [place] [address], [place] [address] 16 Mar, 2014 [facility] [address] [id number] [facility] [place] [address] Mar, [facility] [address] [id number] [address] [place] [address], [place] [address] Mar, [facility] [address] [id number] [address] [place] [address], [place] [address] Mar, [facility] [address] [id number] [address] [place] [address], [place] [address] Mar, [facility] [address] [id number] [address] [place] [address], [place] [address] Mar, [facility] [address] [id number] [address] [place] [address], [place] [address] Mar, [facility] [address] [id number] [address] [place] [address], [place] [address] Mar, [facility] [address] [id number] [address] [place] [address], [place] [address] Mar, [facility] [address] [id number] [address] [place] [address], [place] [address] Mar, [facility] [address] [id number] [address] [place] [address], [place] [address] Mar, [facility] [address] [id number] [address] [place] [address], [place] [address] Mar, [facility] [address] [id number] [address] [place] [address], [place] [address] February, [facility] [address] [id number] [address] [place] [address], [place] [address] February, [facility] [address] [id number] [address] [place] [address], [place] [address] February, [facility] [address] [id number] [address] [place] [address], [place] [address] February, [facility] [address] [id number] [facility] [place] [address] February, [facility] [address] [id number] [facility] [place] [address] February, [facility] [address] [id number] [facility] [place] [address] February, [facility] [address] [id number] [address] [place] [address], [place] [address] February, [facility] [address] [id number] [address] [place] [address], [place] [address] February, [facility] [address] [id number] [address] [place] [address], [place] [address] February, [facility] [address] [id number] [address] [place] [address], [place] [address] February, [facility] [address] [id number] [address] [place] [address], [place] [address] February, [facility] [address] [id number] [address] [place] [address], [place] [address] February, [facility] [address] [id number] [address] [place] [address], [place] [address] February, [facility] [address] [id number] [address] [place] [address], [place] [address] February, [facility] [address] [id number] [address] [place] [address], [place] [address] February, [facility] [address] [id number] [address] [place] [address], [place] [address] February, [facility] [address] [id number] [address] [place] [address], [place] [address] February, [facility] [address] [id number] [address] [place] [address], [place] [address] February, [facility] [address] [id number] [address] [place] [address], [place] [address] February, [facility] [address] [id number] [facility] [address] February, [facility] [address] [id number] [address] [place] [address], [place] [address] Jan, [facility] [address] [id number] [address] [place] [address], [place] [address] Jan, [facility] [address] [id number] [address] [place] [address], [place] [address] Jan, [facility] [address] [id number] [address] [place] [address], [place] [address] Jan, [facility] [address] [id number] [address] [place] [address], [place] [address] Jan, [facility] [address] [id number] [address] [place] [address], [place] [address] Jan, [facility] [address] [id number] [address] [place] [address], [place] [address] Jan, [facility] [address] [id number] [address] [place] [address], [place] [address] Jan, [facility] [address] [id number] [address] [place] [address], [place] [address] Dec, [facility] [address] [id number] [address] [place] [address], [place] [address] Dec, [facility] [address] [id number] [address] [place] [address], [place] [address] 20 Dec, 2013 [facility] [address] [id number] [address] [place] [address], [place] [address] 19 Dec, 2013 [facility] [address] [id number] [address] [place] [address], [place] [address] 19 Dec, 2013 [facility] [address] [id number] [address] [place] [address], [place] [address] 15 Dec, 2013 [facility] [address] [id number] [address] [place] [address], [place] [address] 15 Dec, 2013 [facility] [address] [id number] [address] [place] [address], [place] [address] 11 Dec, 2013 [facility] [address] [id number] [address] [place] [address], [place] [address] 10 Dec, 2013 [facility] [address] [id number] [address] [place] [address], [place] [address] 10 Dec, 2013 [facility] [address] [id number] [address] [place] [address], [place] [address] 18 Nov, 2013 [facility] [address] [id number] [address] [place] [address], [place] [address] Nov, [facility] [address] [id number] [address] [place] [address], [place] [address] Nov, [facility] [address] [id number] [address] [place] [address], [place] [address] Nov, [facility] [address] [id number] [address] [place] [address], [place] [address] Nov, [facility] [address] [id number] [address] [place] [address], [place] [address] Oct, [facility] [address] [id number] [address] [place] [address], [place] [address] Oct, [facility] [address] [id number] [address] [place] [address], [place] [address] Oct, [facility] [address] [id number] [address] [place] [address], [place] [address] Sep, [facility] [address] [id number] [address] [place] [address], [place] [address] Sep, [facility] [address] [id number] [address] [place] [address], [place] [address] Sep, [facility] [address] [id number] [address] [place] [address], [place] [address] Sep, [facility] [address] [id number] [address] [place] [address], [place] [address] Aug, [facility] [address] [id number] [address] [place] [address], [place] [address] Aug, [facility] [address] [id number] [address] [place] [address], [place] [address] Jul, [facility] [address] [id number] [address] [place] [address], [place] [address] Jul, [facility] [address] [id number] [address] [place] [address], [place] [address] Jul, [facility] [address] [id number] [address] [place] [address], [place] [address] Jul, [facility] [address] [id number] [address] [place] [address], [place] [address] Jul, [facility] [address] [id number] [address] [place] [address], [place] [address] Jun, [facility] [address] [id number] [address] [place] [address], [place] [address] 25 Jun, 2013 [facility] [address] [id number] [address] [place] [address], [place] [address] 19 Jun, 2013 [facility] [address] [id number] [address] [place] [address] 18 Jun, 2013 [facility] [address] [id number] [address] [place] [address] 16 Jun, 2013 [facility] [address] [id number] [address] [place] [address], [place] [address] 12 Jun, 2013 [facility] [address] [id number] [address] [place] [address], [place] [address] 11 Jun, 2013 [facility] [address] [id number] [address] [place] [address] 30 May, 2013 [facility] [address] [id number] [address] [place] [address] May, [facility] [address] [id number] [address] [place] [address], [place] [address] Apr, [facility] [address] [id number] [address] [place] [address], [place] [address] Apr, [facility] [address] [id number] [address] [place] [address], [place] [address] Apr, [facility] [address] [id number] [address] [place] [address], [place] [address] Mar, [facility] [address] [id number] [address] [place] [address], [place] [address] Mar, [facility] [address] [id number] [address] [place] [address], [place] [address] February, [facility] [address] [id number] [address] [place] [address], [place] [address] February, [facility] [address] [id number] [address] [place] [address], [place] [address] February, [facility] [address] [id number] [address] [place] [address], [place] [address] February, [facility] [address] [id number] [address] [place] [address], [place] [address] Jan, [facility] [address] [id number] [address] [place] [address], [place] [address] Jan, [facility] [address] [id number] [address] [place] [address], [place] [address] Jan, [facility] [address] [id number] [address] [place] [address], [place] [address] 29 Dec, 2012 [facility] [address] [id number] [address] [place] [address], [place] [address] Dec, [facility] [address] [id number] [address] [place] [address], [place] [address] Dec, [facility] [address] [id number] [address] [place] [address], [place] [address] Dec, [facility] [address] [id number] [address] [place] [address], [place] [address] Nov, [facility] [address] [id number] [address] [place] [address], [place] [address] Nov, [facility] [address] [id number] [address] [place] [address], [place] [address] Oct, [facility] [address] [id number] [address] [place] [address], [place] [address] Oct, [facility] [address] [id number] [address] [place] [address], [place] [address] Oct, [facility] [address] [id number] [address] [place] [address], [place] [address] Oct, [facility] [address] [id number] [address] [place] [address], [place] [address] Aug, [facility] [address] [id number] [address] [place] [address], [place] [address] Aug, [facility] [address] [id number] [address] [place] [address], [place] [address] Jun, [facility] [address] [id number] [address] [place] [address], [place] [address] May, [facility] [address] [id number] [address] [place] [address], [place] [address] May, [facility] [address] [id number] [address] [place] [address], [place] [address] Apr, [facility] [address] [id number] [address] [place] [address], [place] [address] Apr, [facility] [address] [id number] [address] [place] [address], [place] [address] Apr, [facility] [address] [id number] [address] [place] [address], [place] [address] 20 Mar, 2012 [facility] [address] [id number] [address] [place] [address], [place] [address] Mar, [facility] [address] [id number] [address] [place] [address], [place] [address] 13 Mar, 2012 [facility] [address] [id number] [address] [place] [address], [place] [address] Mar, [facility] [address] [id number] [address] [place] [address], [place] [address] 04 Mar, 2012 [facility] [address] [id number] [address] [place] [address], [place] [address] February, [facility] [address] [id number] [address] [place] [address], [place] [address] February, [facility] [address] [id number] [address] [place] [address], [place] [address] February, [facility] [address] [id number] [address] [place] [address], [place] [address] February, [facility] [address] [id number] [address] [place] [address], [place] [address] February, [facility] [address] [id number] [address] [place] [address], [place] [address] February, [facility] [address] [id number] [address] [place] [address], [place] [address] February, [facility] [address] [id number] [address] [place] [address], [place] [address] Jan, [facility] [address] [id number] [address] [place] [address], [place] [address] 18 Jan, 2012 [facility] [address] [id number] [address] [place] [address], [place] [address] 17 Jan, 2012 [facility] [address] [id number] [address] [place] [address], [place] [address] 13 Jan, 2012 [facility] [address] [id number] [address] [place] [address], [place] [address] 10 Jan, 2012 [facility] [address] [id number] [address] [place] [address], [place] [address] 04 Jan, 2012 [facility] [address] [id number] [address] [place] [address], [place] [address] 30 Dec, 2011 [facility] [address] [id number] [address] [place] [address], [place] [address] 24 Dec, 2011 [facility] [address] [id number] [address] [place] [address], [place] [address] 20 Dec, 2011 [facility] [address] [id number] [address] [place] [address], [place] [address] 13 Dec, 2011 [facility] [address] [id number] [address] [place] [address], [place] [address] Dec, [facility] [address] [id number] [address] [place] [address], [place] [address] 28 Nov, 2011 [facility] [address] [id number] [address] [place] [address], [place] [address] Nov, [facility] [address] [id number] [address] [place] [address], [place] [address] 25 Nov, 2011 [facility] [address] [id number] [address] [place] [address], [place] [address] 14 Nov, 2011 [facility] [address] [id number] [address] [place] [address], [place] [address] Nov, [facility] [address] [id number] [address] [place] [address], [place] [address] Nov, [facility] [address] [id number] [address] [place] [address], [place] [address] Oct, [facility] [address] [id number] [address] [place] [address], [place] [address] Oct, [facility] [address] [id number] [address] [place] [address], [place] [address] Oct, [facility] [address] [id number] [address] [place] [address], [place] [address] Oct, [facility] [address] [id number] [address] [place] [address], [place] [address] Oct, [facility] [address] [id number] [address] [place] [address], [place] [address] Sep, [facility] [address] [id number] [address] [place] [address], [place] [address] Sep, [facility] [address] [id number] [address] [place] [address], [place] [address] Sep, [facility] [address] [id number] [address] [place] [address], [place] [address] 14 Sep, 2011 [facility] [address] [id number] [address] [place] [address], [place] [address] Sep, [facility] [address] [id number] [address] [place] [address], [place] [address] Sep, [facility] [address] [id number] [address] [place] [address], [place] [address] Sep, [facility] [address] [id number] [address] [place] [address], [place] [address] Sep, [facility] [address] [id number] [address] [place] [address], [place] [address] Sep, [facility] [address] [id number] [address] [place] [address], [place] [address] Aug, [facility] [address] [id number] [address] [place] [address], [place] [address] Aug, [facility] [address] [id number] [address] [place] [address], [place] [address] Aug, [facility] [address] [id number] [address] [place] [address], [place] [address] Aug, [facility] [address] [id number] [address] [place] [address], [place] [address] Aug, [facility] [address] [id number] [address] [place] [address], [place] [address] Aug, [facility] [address] [id number] [address] [place] [address], [place] [address] Aug, [facility] [address] [id number] [address] [place] [address], [place] [address] Aug, [facility] [address] [id number] [address] [place] [address], [place] [address] Aug, [facility] [address] [id number] [address] [place] [address], [place] [address] Aug, [facility] [address] [id number] [address] [place] [address], [place] [address] Aug, [facility] [address] [id number] [address] [place] [address], [place] [address] Aug, [facility] [address] [id number] [address] [place] [address], [place] [address] Jul, [facility] [address] [id number] [address] [place] [address], [place] [address] Jul, [facility] [address] [id number] [address] [place] [address], [place] [address] 24 Jul, 2011 [facility] [address] [id number] [address] [place] [address], [place] [address] Jul, [facility] [address] [id number] [address] [place] [address], [place] [address] Jul, [facility] [address] [id number] [address] [place] [address], [place] [address] 19 Jul, 2011 [facility] [address] [id number] [address] [place] [address], [place] [address] 18 Jul, 2011 [facility] [address] [id number] [address] [place] [address] 11 Jul, 2011 [facility] [address] [id number] [address] [place] [address] Jul, [facility] [address] [id number] [address] [place] [address] Jul, [facility] [address] [id number] [address] [place] [address] Nov, [facility] [address] [facility] [id number] [address] [place] [address] Aug, [facility] [address] [facility] [id number] [address] [place] [address] Aug, [facility] [address] [facility] [id number] [address] [place] [address] Aug, [facility] [address] [facility] [id number] [address] [place] [address] Aug, [facility] [address] [facility] [id number] [address] [place] [address] Jul, IMMUNIZATIONS No Known Immunizations SOCIAL HISTORY [...] attempt by hanging 2015 Hospitalization History [facility] 01/30/2018-02/10/20 08 Hospitalization History [facility] 05/04/18- [facility] History [facility]
--- OUTSIDE RECORDS SUMMARY | 2020-04-04 02:27 | XMS REPORT ---
Author Author Kaila Roca Organization 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 [address] [facility] [id number] [address] [place] [phone] Jan, [facility] [address] [facility] [id number] [address] [place] [phone] Jan, [facility] [address] [facility] [id number] [address] [place] [phone] Jan, 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 [address] [place] [id number] [address] [place] [phone] Nov, 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 [address] [place] [id number] [address] [place] [phone] Oct, 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 [address] [place] [id number] [address] [place] [id number] Aug, [facility] [address] [place] [id number] [address] [place] [phone] Aug, Acute bronchitis, unspecifie d organism J20.9 [facility] [address] [place] [id number] [address] [place] [phone] Aug, [facility] [address] [place] [id number] [address] [place] [phone] Aug, 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 [address] [facility] [id number] [address] [place] [phone] Jul, 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 [address] [facility] [id number] [address] [place] [phone] Apr, Paranoid schizophrenia F20.0 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 [address] [facility] [id number] [address] [place] [phone] Mar, Paranoid schizophrenia F20.0 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 [address] [place] [id number] [address] [place] [phone] February, Paranoid schizophrenia F20.0 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 [address] [id number] [address] [place] [id number] Aug, 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 [address] [id number] [address] [place] [id number] Jul, [facility] [address] [facility] [id number] [address] [place] [phone] Jul, Paranoid schizophrenia F20.0 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 [address] [id number] [address] [place] [phone] May, [facility] [address] [id number] [address] [place] [phone] May, Paranoid schizophrenia F20.0 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 [address] [id number] [address] [place] [phone] Apr, 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 [address] [id number] [address] [place] [phone] Apr, [facility] [address] [id number] [address] [place] [phone] Apr, Schizoaffective disorder, de pressive type F25.1 and Borderline personality disorder F60.3 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 [address] [id number] [address] [place] [phone] Apr, 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 [address] [id number] [address] [place] [phone] Apr, [facility] [address] [id number] [address] [place] [phone] Mar, Paranoid schizophrenia F20.0 [facility] [address] [id number] [address] [place] [id number] Mar, 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 [address] [id number] [address] [place] [phone] February, Paranoid schizophrenia F20.0 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 [address] [id number] [address] [place] [phone] February, [facility] [address] [id number] [address] [place] [id number] February, Paranoid schizophrenia F20.0 [facility] [address] [id number] [address] [place] [phone] February, Paranoid schizophrenia F20.0 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 [address] [facility] [id number] [address] [place] [phone] Jan, Paranoid schizophrenia F20.0 [facility] [address] [id number] [address] [place] [phone] Jan, Paranoid schizophrenia F20.0 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 [address] [id number] [address] [place] [id number] Dec, 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 [address] [id number] [address] [place] [phone] Nov, [facility] [address] [id number] [address] [place] [phone] Oct, Paranoid schizophrenia F20.0 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 [address] [id number] [address] [place] [phone] Oct, [facility] [address] [id number] [address] [place] [phone] Oct, [facility] [address] [id number] [address] [place] [phone] Sep, 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 [address] [id number] [address] [place] [phone] Sep, Paranoid schizophrenia F20.0 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 [address] [facility] [id number] [address] [place] [id number] Aug, 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 [address] [facility] [id number] [address] [place] [phone] Jul, Paranoid schizophrenia F20.0 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 [address] [id number] [address] [place] [phone] May, Other senior living (current) dr ug therapy Z79.899 [facility] [address] [id number] [address] [place] [phone] May, [facility] [address] [id number] [address] [place] [phone] May, [facility] [address] [id number] [address] [place] [phone] May, Attention deficit hyperactiv ity disorder (ADHD), inattentive type, mild F90.0 [facility] [address] [id number] [address] [place] [phone] May, [facility] [address] [id number] [address] [place] [phone] May, Attention deficit hyperactiv ity disorder (ADHD), inattentive type, mild F90.0 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 [address] [id number] [address] [place] [id number] Apr, Paranoid schizophrenia F20.0 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 [address] [id number] [address] [place] [phone] February, 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 [address] [id number] [address] [place] [id number] Nov, High risk medication use Z79 .899 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 [address] [id number] [address] [place] [phone] Aug, 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 [address] [id number] [address] [place] [phone] Jul, 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 [address] [id number] [address] [place] [id number] Jun, [facility] [address] [id number] [address] [place] [phone] May, Paranoid schizophrenia F20.0 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 [address] [id number] [address] [place] [address] [place] [address] May, [facility] [address] [id number] [address] [place] [address] May, Paranoid schizophrenia F20.0 [facility] [address] [id number] [address] [place] [id number] May, [facility] [address] [id number] [address] [place] [address] May, Paranoid schizophrenia F20.0 [facility] [address] [id number] [address] [place] [address] May, Schizoaffective disorder, un specified F25.9 [facility] [address] [id number] [address] [place] [address] May, Schizoaffective disorder, un specified F25.9 [facility] [address] [id number] [address] [place] [address] May, [facility] [address] [id number] [address] [place] [id number] May, Paranoid schizophrenia F20.0 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 [address] [id number] [address] [place] [address] Mar, 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 [address] [id number] [address] [place] [id number] Mar, Paranoid schizophrenia F20.0 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 [address] [id number] [address] [place] [address] Mar, 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 [address] [id number] [address] [place] [address] February, [facility] [address] [id number] [address] [place] [address] February, [facility] [address] [id number] [address] [place] [address] February, [facility] [address] [id number] [address] [place] [id number] February, [facility] [address] [id number] [address] [place] [id number] Jan, Paranoid schizophrenia F20.0 [facility] [address] [id number] [address] [place] [address] [id number] Jan, Dental examination Z01.20 [facility] [address] [id number] [address] [place] [address] [id number] Jan, Dental caries K02.9 [facility] [address] [id number] [address] [place] [address] [id number] Jan, Dental examination Z01.20 [facility] [address] [id number] [address] [place] [address] [id number] Dec, Encounter for dental examina tion Z01.20 [facility] [address] [id number] [address] [place] [id number] Dec, Paranoid schizophrenia F20.0 [facility] [address] [id number] [address] [place] [address] [id number] Dec, Dental examination Z01.20 [facility] [address] [id number] [address] [place] [id number] Dec, 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 [address] [id number] [address] [place] [id number] Nov, Schizoaffective disorder, un specified F25.9 [facility] [address] [id number] [address] [place] [phone] Oct, Paranoid schizophrenia F20.0 [facility] [address] [id number] [address] [place] [id number] Oct, 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 [address] [id number] [address] [place] [id number] Sep, 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 [address] [id number] [address] [place] [id number] Aug, Paranoid schizophrenia F20.0 [facility] [address] [id number] [address] [place] [phone] Aug, 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 [address] [facility] [id number] [address] [place] [id number] Jul, Bipolar disorder, unspecifie d F31.9 [facility] [address] [facility] [id number] [address] [place] [id number] Jul, [facility] [address] [facility] [id number] [address] [place] [id number] Jun, [facility] [address] [facility] [id number] [address] [place] [id number] Jun, Schizoaffective disorder, ch ronic 295.72 ; Posttraumatic stress disorder 309.81 and Attention deficit disorder of childhood without mention of hyperactivity 314.00 [facility] [address] [place] [place] [id number] [address] [place] [id number] May, [facility] [address] [facility] [id number] [address] [place] [id number] May, [facility] [address] [id number] [address] [place] [id number] May, Schizoaffective disorder, ch ronic 295.72 ; Posttraumatic stress disorder 309.81 ; Attention deficit disorder of childhood without mention of hyperactivity 314.00 and Bipolar disorder, unspecified 296.80 [facility] [address] [facility] [id number] [address] [place] [id number] Apr, Schizoaffective disorder, ch ronic 295.72 [facility] [address] [facility] [id number] [address] [place] [id number] Apr, [facility] [address] [facility] [id number] [address] [place] [id number] Apr, Schizoaffective disorder, ch ronic 295.72 ; Posttraumatic stress disorder 309.81 and Attention deficit disorder of childhood without mention of hyperactivity 314.00 [facility] [address] [id number] [address] [place] [id number] Mar, Disorganized schizophrenia, subchronic condition 295.11 [facility] [address] [id number] [address] [place] [id number] Mar, [facility] [address] [id number] [address] [place] [id number] Mar, [facility] [address] [id number] [address] [place] [id number] Mar, [facility] [address] [id number] [address] [place] [id number] Mar, [facility] [address] [id number] [address] [place] [phone] February, Schizoaffective disorder, ch ronic 295.72 [facility] [address] [id number] [address] [place] [id number] February, [facility] [address] [id number] [address] [place] [id number] February, Attention 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 ; Posttraumatic stress disorder 309.81 and Schizoaffective disorder, chronic 295.72 [facility] [address] [id number] [address] [place] [phone] 29 Jan, 2015 [facility] [address] [id number] [address] [place] [phone] [address], [address] [facility] [address] [id number] [address] [place] [id number] Jan, [facility] [address] [facility] [id number] [address] [place] [id number] Dec, [facility] [address] [id number] [address] [place] [phone] Dec, [facility] [address] [id number] [address] [place] [id number] Dec, [facility] [address] [id number] [address] [place] [address], [place] [address] Dec, [facility] [address] [id number] [address] [place] [address], [place] [address] Dec, [facility] [address] [id number] [address] [place] [address], [place] [address] Dec, [facility] [address] [id number] [address] [place] [address], [place] [address] Dec, [facility] [address] [id number] [address] [place] [address], [place] [address] Dec, [facility] [address] [id number] [address] [place] [address], [place] [address] Nov, 2014 [facility] [address] [id number] [address] [place] [address], [place] [address] Nov, [facility] [address] [id number] [address] [place] [address], [place] [address] Nov, 2014 [facility] [address] [id number] [address] [place] [address], [place] [address] Nov, 2014 [facility] [address] [id number] [address] [place] [address], [place] [address] Nov, 2014 [facility] [address] [id number] [address] [place] [address], [place] [address] Nov, 2014 [facility] [address] [id number] [address] [place] [address], [place] [address] Nov, 2014 [facility] [address] [id number] [address] [place] [address], [place] [address] Nov, 2014 [facility] [address] [id number] [address] [place] [address], [place] [address] Nov, 2014 [facility] [address] [id number] [address] [place] [address], [place] [address] Nov, 2014 [facility] [address] [id number] [address] [place] [address], [place] [address] Oct, [facility] [address] [id number] [address] [place] [address], [place] [address] Oct, [facility] [address] [id number] [address] [place] [address], [place] [address] Oct, [facility] [address] [id number] [address] [place] [address], [place] [address] Oct, [facility] [address] [id number] [address] [place] [address], [place] [address] 15 Oct, 2014 [facility] [address] [id number] [address] [place] [address], [place] [address] Oct, [facility] [address] [id number] [address] [place] [address], [place] [address] Oct, [facility] [address] [id number] [address] [place] [address], [place] [address] 17 Sep, 2014 [facility] [address] [id number] [address] [place] [address], [place] [address] 17 Sep, 2014 [facility] [address] [id number] [address] [place] [address], [place] [address] 15 Sep, 2014 [facility] [address] [id number] [address] [place] [address], [place] [address] 15 Sep, 2014 [facility] [address] [id number] [address] [place] [address], [place] [address] 20 Aug, 2014 [facility] [address] [id number] [address] [place] [address], [place] [address] 20 Aug, 2014 [facility] [address] [id number] [address] [place] [address], [place] [address] 14 Aug, 2014 [facility] [address] [id number] [address] [place] [address], [place] [address] 14 Aug, 2014 [facility] [address] [id number] [address] [place] [address], [place] [address] Aug, [facility] [address] [id number] [address] [place] [address], [place] [address] Aug, [facility] [address] [id number] [address] [place] [address], [place] [address] 29 Jul, 2014 [facility] [address] [id number] [address] [place] [address], [place] [address] Jul, [facility] [address] [id number] [address] [place] [address], [place] [address] Jul, [facility] [address] [id number] [address] [place] [address], [place] [address] Jul, [facility] [address] [id number] [address] [place] [address], [place] [address] Jul, [facility] [address] [id number] [address] [place] [address], [place] [address] Jul, [facility] [address] [id number] [address] [place] [address], [place] [address] 27 Jun, 2013 [facility] [address] [id number] [address] [place] [address], [place] [address] 27 Sep, 2013 [facility] [address] [id number] [address] [place] [address], [place] [address] 26 Jun, 2013 [facility] [address] [id number] [address] [place] [address], [place] [address] 26 Sep, 2013 [facility] [address] [id number] [address] [place] [address], [place] [address] 26 Sep, 2013 [facility] [address] [id number] [address] [place] [address], [place] [address] 26 Sep, 2013 [facility] [address] [id number] [address] [place] [address], [place] [address] 16 Sep, 2013 [facility] [address] [id number] [address] [place] [address], [place] [address] 16 Jun, 2013 [facility] [address] [id number] [facility] [place] [address] Jun, [facility] [address] [id number] [address] [place] [address], [place] [address] Jun, [facility] [address] [id number] [address] [place] [address], [place] [address] Jun, [facility] [address] [id number] [address] [place] [address], [place] [address] May, [facility] [address] [id number] [address] [place] [address], [place] [address] May, [facility] [address] [id number] [address] [place] [address], [place] [address] May, [facility] [address] [id number] [address] [place] [address], [place] [address] May, [facility] [address] [id number] [address] [place] [address], [place] [address] May, [facility] [address] [id number] [address] [place] [address], [place] [address] May, [facility] [address] [id number] [address] [place] [address], [place] [address] May, [facility] [address] [id number] [address] [place] [address], [place] [address] May, [facility] [address] [id number] [address] [place] [address], [place] [address] May, [facility] [address] [id number] [address] [place] [address], [place] [address] May, [facility] [address] [id number] [address] [place] [address], [place] [address] Apr, [facility] [address] [id number] [address] [place] [address], [place] [address] Apr, [facility] [address] [id number] [address] [place] [address], [place] [address] Apr, [facility] [address] [id number] [address] [place] [address], [place] [address] Apr, [facility] [address] [id number] [address] [place] [address], [place] [address] Apr, [facility] [address] [id number] [address] [place] [address], [place] [address] Apr, [facility] [address] [id number] [address] [place] [address], [place] [address] Apr, [facility] [address] [id number] [address] [place] [address], [place] [address] Apr, [facility] [address] [id number] [address] [place] [address], [place] [address] Apr, [facility] [address] [id number] [address] [place] [address], [place] [address] Apr, [facility] [address] [id number] [address] [place] [address], [place] [address] Mar, [facility] [address] [id number] [address] [place] [address], [place] [address] Mar, [facility] [address] [id number] [address] [place] [address], [place] [address] Mar, [facility] [address] [id number] [address] [place] [address], [place] [address] Mar, [facility] [address] [id number] [address] [place] [address], [place] [address] Mar, [facility] [address] [id number] [address] [place] [address], [place] [address] Mar, [facility] [address] [id number] [address] [place] [address], [place] [address] Mar, [facility] [address] [id number] [address] [place] [address], [place] [address] 16 Mar, 2014 [facility] [address] [id number] [address] [place] [address], [place] [address] 16 Mar, 2014 [facility] [address] [id number] [facility] [place] [address] Mar, [facility] [address] [id number] [address] [place] [address], [place] [address] Mar, [facility] [address] [id number] [address] [place] [address], [place] [address] Mar, [facility] [address] [id number] [address] [place] [address], [place] [address] Mar, [facility] [address] [id number] [address] [place] [address], [place] [address] Mar, [facility] [address] [id number] [address] [place] [address], [place] [address] Mar, [facility] [address] [id number] [address] [place] [address], [place] [address] Mar, [facility] [address] [id number] [address] [place] [address], [place] [address] Mar, [facility] [address] [id number] [address] [place] [address], [place] [address] Mar, [facility] [address] [id number] [address] [place] [address], [place] [address] Mar, [facility] [address] [id number] [address] [place] [address], [place] [address] Mar, [facility] [address] [id number] [address] [place] [address], [place] [address] February, [facility] [address] [id number] [address] [place] [address], [place] [address] February, [facility] [address] [id number] [address] [place] [address], [place] [address] February, [facility] [address] [id number] [address] [place] [address], [place] [address] February, [facility] [address] [id number] [facility] [place] [address] February, [facility] [address] [id number] [facility] [place] [address] February, [facility] [address] [id number] [facility] [place] [address] February, [facility] [address] [id number] [address] [place] [address], [place] [address] February, [facility] [address] [id number] [address] [place] [address], [place] [address] February, [facility] [address] [id number] [address] [place] [address], [place] [address] February, [facility] [address] [id number] [address] [place] [address], [place] [address] February, [facility] [address] [id number] [address] [place] [address], [place] [address] February, [facility] [address] [id number] [address] [place] [address], [place] [address] February, [facility] [address] [id number] [address] [place] [address], [place] [address] February, [facility] [address] [id number] [address] [place] [address], [place] [address] February, [facility] [address] [id number] [address] [place] [address], [place] [address] February, [facility] [address] [id number] [address] [place] [address], [place] [address] February, [facility] [address] [id number] [address] [place] [address], [place] [address] February, [facility] [address] [id number] [address] [place] [address], [place] [address] February, [facility] [address] [id number] [address] [place] [address], [place] [address] February, [facility] [address] [id number] [facility] [place] [address] February, [facility] [address] [id number] [address] [place] [address], [place] [address] Jan, [facility] [address] [id number] [address] [place] [address], [place] [address] Jan, [facility] [address] [id number] [address] [place] [address], [place] [address] Jan, [facility] [address] [id number] [address] [place] [address], [place] [address] Jan, [facility] [address] [id number] [address] [place] [address], [place] [address] Jan, [facility] [address] [id number] [address] [place] [address], [place] [address] Jan, [facility] [address] [id number] [address] [place] [address], [place] [address] Jan, [facility] [address] [id number] [address] [place] [address], [place] [address] Jan, [facility] [address] [id number] [address] [place] [address], [place] [address] Dec, [facility] [address] [id number] [address] [place] [address], [place] [address] Dec, [facility] [address] [id number] [address] [place] [address], [place] [address] 20 Dec, 2013 [facility] [address] [id number] [address] [place] [address], [place] [address] 19 Dec, 2013 [facility] [address] [id number] [address] [place] [address], [place] [address] 19 Dec, 2013 [facility] [address] [id number] [address] [place] [address], [place] [address] 15 Dec, 2013 [facility] [address] [id number] [address] [place] [address], [place] [address] 15 Dec, 2013 [facility] [address] [id number] [address] [place] [address], [place] [address] 11 Dec, 2013 [facility] [address] [id number] [address] [place] [address], [place] [address] 10 Dec, 2013 [facility] [address] [id number] [address] [place] [address], [place] [address] 10 Dec, 2013 [facility] [address] [id number] [address] [place] [address], [place] [address] 18 Nov, 2013 [facility] [address] [address] [id number] [address] [place] [address], [place] [address] Nov, [facility] [address] [id number] [address] [place] [address], [place] [address] Nov, [facility] [address] [id number] [address] [place] [address], [place] [address] Nov, [facility] [address] [id number] [address] [place] [address], [place] [address] Nov, [facility] [address] [id number] [address] [place] [address], [place] [address] Oct, [facility] [address] [id number] [address] [place] [address], [place] [address] Oct, [facility] [address] [id number] [address] [place] [address], [place] [address] Oct, [facility] [address] [id number] [address] [place] [address], [place] [address] Sep, [facility] [address] [id number] [address] [place] [address], [place] [address] Sep, [facility] [address] [id number] [address] [place] [address], [place] [address] Sep, [facility] [address] [id number] [address] [place] [address], [place] [address] Sep, [facility] [address] [id number] [address] [place] [address], [place] [address] Aug, [facility] [address] [id number] [address] [place] [address], [place] [address] Aug, [facility] [address] [id number] [address] [place] [address], [place] [address] Jul, [facility] [address] [id number] [address] [place] [address], [place] [address] Jul, [facility] [address] [id number] [address] [place] [address], [place] [address] Jul, [facility] [address] [id number] [address] [place] [address], [place] [address] Jul, [facility] [address] [id number] [address] [place] [address], [place] [address] Jul, [facility] [address] [id number] [address] [place] [address], [place] [address] Jun, [facility] [address] [id number] [address] [place] [address], [place] [address] 25 Jun, 2013 [facility] [address] [id number] [address] [place] [address], [place] [address] 19 Jun, 2013 [facility] [address] [id number] [address] [place] [address] 18 Jun, 2013 [facility] [address] [id number] [address] [place] [id number] 16 Jun, 2013 [facility] [address] [id number] [address] [place] [address], [place] [address] 12 Jun, 2013 [facility] [address] [id number] [address] [place] [address], [place] [address] 11 Jun, 2013 [facility] [address] [id number] [address] [place] [address] 30 May, 2013 [facility] [address] [id number] [address] [place] [address] May, [facility] [address] [id number] [address] [place] [address], [place] [address] Apr, [facility] [address] [id number] [address] [place] [address], [place] [address] Apr, [facility] [address] [id number] [address] [place] [address], [place] [address] Apr, [facility] [address] [id number] [address] [place] [address], [place] [address] Mar, [facility] [address] [id number] [address] [place] [address], [place] [address] Mar, [facility] [address] [id number] [address] [place] [address], [place] [address] February, [facility] [address] [id number] [address] [place] [address], [place] [address] February, [facility] [address] [id number] [address] [place] [address], [place] [address] February, [facility] [address] [id number] [address] [place] [address], [place] [address] February, [facility] [address] [id number] [address] [place] [address], [place] [address] Jan, [facility] [address] [id number] [address] [place] [address], [place] [address] Jan, [facility] [address] [id number] [address] [place] [address], [place] [address] Jan, [facility] [address] [id number] [address] [place] [address], [place] [address] 29 Dec, 2012 [facility] [address] [id number] [address] [place] [address], [place] [address] Dec, [facility] [address] [id number] [address] [place] [address], [place] [address] Dec, [facility] [address] [id number] [address] [place] [address], [place] [address] Dec, [facility] [address] [id number] [address] [place] [address], [place] [address] Nov, [facility] [address] [id number] [address] [place] [address], [place] [address] Nov, [facility] [address] [id number] [address] [place] [address], [place] [address] Oct, [facility] [address] [id number] [address] [place] [address], [place] [address] Oct, [facility] [address] [id number] [address] [place] [address], [place] [address] Oct, [facility] [address] [id number] [address] [place] [address], [place] [address] Oct, [facility] [address] [id number] [address] [place] [address], [place] [address] Aug, [facility] [address] [id number] [address] [place] [address], [place] [address] Aug, [facility] [address] [id number] [address] [place] [address], [place] [address] Jun, [facility] [address] [id number] [address] [place] [address], [place] [address] May, [facility] [address] [id number] [address] [place] [address], [place] [address] May, [facility] [address] [id number] [address] [place] [address], [place] [address] Apr, [facility] [address] [id number] [address] [place] [address], [place] [address] Apr, [facility] [address] [id number] [address] [place] [address], [place] [address] Apr, [facility] [address] [id number] [address] [place] [address], [place] [address] 20 Mar, 2012 [facility] [address] [id number] [address] [place] [address], [place] [address] Mar, [facility] [address] [id number] [address] [place] [address], [place] [address] 13 Mar, 2012 [facility] [address] [id number] [address] [place] [address], [place] [address] Mar, [facility] [address] [id number] [address] [place] [address], [place] [address] 04 Mar, 2012 [facility] [address] [id number] [address] [place] [address], [place] [address] February, [facility] [address] [id number] [address] [place] [address], [place] [address] February, [facility] [address] [id number] [address] [place] [address], [place] [address] February, [facility] [address] [id number] [address] [place] [address], [place] [address] February, [facility] [address] [id number] [address] [place] [address], [place] [address] February, [facility] [address] [id number] [address] [place] [address], [place] [address] February, [facility] [address] [id number] [address] [place] [address], [place] [address] February, [facility] [address] [id number] [address] [place] [address], [place] [address] Jan, [facility] [address] [id number] [address] [place] [address], [place] [address] 18 Jan, 2012 [facility] [address] [id number] [address] [place] [address], [place] [address] 17 Jan, 2012 [facility] [address] [id number] [address] [place] [address], [place] [address] 13 Jan, 2012 [facility] [address] [id number] [address] [place] [address], [place] [address] 10 Jan, 2012 [facility] [address] [id number] [address] [place] [address], [place] [address] 04 Jan, 2012 [facility] [address] [id number] [address] [place] [address], [place] [address] 30 Dec, 2011 [facility] [address] [id number] [address] [place] [address], [place] [address] 24 Dec, 2011 [facility] [address] [id number] [address] [place] [address], [place] [address] 20 Dec, 2011 [facility] [address] [id number] [address] [place] [address], [place] [address] 13 Dec, 2011 [facility] [address] [id number] [address] [place] [address], [place] [address] Dec, [facility] [address] [id number] [address] [place] [address], [place] [address] 28 Nov, 2011 [facility] [address] [id number] [address] [place] [address], [place] [address] Nov, [facility] [address] [id number] [address] [place] [address], [place] [address] 25 Nov, 2011 [facility] [address] [id number] [address] [place] [address], [place] [address] 14 Nov, 2011 [facility] [address] [id number] [address] [place] [address], [place] [address] Nov, [facility] [address] [id number] [address] [place] [address], [place] [address] Nov, [facility] [address] [id number] [address] [place] [address], [place] [address] Oct, [facility] [address] [id number] [address] [place] [address], [place] [address] Oct, [facility] [address] [id number] [address] [place] [address], [place] [address] Oct, [facility] [address] [id number] [address] [place] [address], [place] [address] Oct, [facility] [address] [id number] [address] [place] [address], [place] [address] Oct, [facility] [address] [id number] [address] [place] [address], [place] [address] Sep, [facility] [address] [id number] [address] [place] [address], [place] [address] Sep, [facility] [address] [id number] [address] [place] [address], [place] [address] Sep, [facility] [address] [id number] [address] [place] [address], [place] [address] 14 Sep, 2011 [facility] [address] [id number] [address] [place] [address], [place] [address] Sep, [facility] [address] [id number] [address] [place] [address], [place] [address] Sep, [facility] [address] [id number] [address] [place] [address], [place] [address] Sep, [facility] [address] [id number] [address] [place] [address], [place] [address] Sep, [facility] [address] [id number] [address] [place] [address], [place] [address] Sep, [facility] [address] [id number] [address] [place] [address], [place] [address] Aug, [facility] [address] [id number] [address] [place] [address], [place] [address] Aug, [facility] [address] [id number] [address] [place] [address], [place] [address] Aug, [facility] [address] [id number] [address] [place] [address], [place] [address] Aug, [facility] [address] [id number] [address] [place] [address], [place] [address] Aug, [facility] [address] [id number] [address] [place] [address], [place] [address] Aug, [facility] [address] [id number] [address] [place] [address], [place] [address] Aug, [facility] [address] [id number] [address] [place] [address], [place] [address] Aug, [facility] [address] [id number] [address] [place] [address], [place] [address] Aug, [facility] [address] [id number] [address] [place] [address], [place] [address] Aug, [facility] [address] [id number] [address] [place] [address], [place] [address] Aug, [facility] [address] [id number] [address] [place] [address], [place] [address] Aug, [facility] [address] [id number] [address] [place] [address], [place] [address] Jul, [facility] [address] [id number] [address] [place] [address], [place] [address] Jul, [facility] [address] [id number] [address] [place] [address], [place] [address] 24 Jul, 2011 [facility] [address] [id number] [address] [place] [address], [place] [address] Jul, [facility] [address] [id number] [address] [place] [address], [place] [address] Jul, [facility] [address] [id number] [address] [place] [address], [place] [address] 19 Jul, 2011 [facility] [address] [id number] [address] [place] [address], [place] [address] 18 Jul, 2011 [facility] [address] [id number] [address] [place] [address] 11 Jul, 2011 [facility] [address] [id number] [address] [place] [id number] Jul, [facility] [address] [id number] [address] [place] [id number] Jul, [facility] [address] [id number] [address] [place] [address] Nov, [facility] [address] [facility] [id number] [address] [place] [address] Aug, [facility] [address] [facility] [id number] [address] [place] [address] Aug, [facility] [address] [facility] [id number] [address] [place] [address] Aug, [facility] [address] [facility] [id number] [address] [place] [address] Aug, [facility] [address] [facility] [id number] [address] [place] [address] Jul, IMMUNIZATIONS No Known Immunizations SOCIAL HISTORY Never Assessed REASON FOR VISIT PLAN OF CARE VITAL SIGNS MEDICATIONS Unknown Medications RESULTS No Results PROCEDURES Procedure Date Ordered Result Body Site THER/PROPH/DIAG INJ, SC/IM Jun 05, 2014 INSTRUCTIONS MEDICATIONS ADMINISTERED No Known [...] by hanging 2015 Hospitalization History [facility] 01/30/2018-02/10/20 08 Hospitalization History [facility]SI 05/04/18- Hospitalization History [facility]- [facility] - 5 days
--- OUTSIDE RECORDS SUMMARY | 2020-04-04 02:28 | XMS REPORT ---
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 Name Role Phone BRYAN Roca Unavailable PROBLEMS Type Condition ICD9-CM Code WRF87-[id number] Code Onset Dates Condition S tatus SNOMED Code Problem Paranoid schizophrenia F20.0 Active 64695133 Problem Borderline personality disorder F60.3 Active 70747680 Problem Schizoaffective disorder, depressive type F25.1 Active 45947197 Problem Schizoaffective disorder, unspecified F25.9 Active 85990557 Problem Attention deficit hyperactivity disorder (ADHD), inattentive type, 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 63138054 Problem Posttraumatic stress disorder F43.10 Active 30357815 Problem High risk medication use Z79.899 Activ e [id number] ALLERGIES No Information ENCOUNTERS Encounter Location Date Diagnosis [facility] [address] [facility] [id number] [address] [place] [phone] Jan, [facility] [address] [facility] [id number] [address] [place] [phone] Jan, [facility] [address] [facility] [id number] [address] [place] [id number] Jan, [facility] [address] [facility] [id number] [address] [place] [phone] Jan, Posttraumatic stress disorde r F43.10 ; Attention deficit hyperactivity disorder (ADHD), inattentive type, 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 ; Borderline personality disorder F60.3 and Schizoaffective disorder, depressive type F25.1 [facility] [address] [facility] [id number] [address] [place] [phone] Dec, Paranoid schizophrenia F20.0 ; Attention deficit hyperactivity disorder (ADHD), inattentive type, 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 ; Posttraumatic stress disorder F43.10 and Borderline personality disorder F60.3 [facility] [address] [place] [id number] [address] [place] [phone] Nov, Paranoid schizophrenia F20.0 ; Attention deficit hyperactivity disorder (ADHD), inattentive type, 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 ; Posttraumatic stress disorder F43.10 and Borderline personality disorder F60.3 [facility] [address] [id number] [address] [place] [phone] Nov, [facility] [address] [facility] [id number] [address] [place] [phone] Oct, Paranoid schizophrenia F20.0 ; Attention deficit hyperactivity disorder (ADHD), inattentive type, 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 ; Posttraumatic stress disorder F43.10 and Borderline personality disorder F60.3 [facility] [address] [place] [id number] [address] [place] [phone] Oct, [facility] [address] [place] [id number] [address] [place] [address] Sep, Paranoid schizophrenia F20.0 ; Attention deficit hyperactivity disorder (ADHD), inattentive type, 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 [address] [place] [id number] [address] [place] [phone] Aug, Acute bronchitis, unspecifie d organism J20.9 [facility] [address] [place] [id number] [address] [place] [phone] Aug, [facility] [address] [place] [id number] [address] [place] [address] Aug, [facility] [address] [facility] [id number] [address] [place] [address] Jul, Paranoid schizophrenia F20.0 ; Attention deficit hyperactivity disorder (ADHD), inattentive type, 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 ; Posttraumatic stress disorder F43.10 and Borderline personality disorder F60.3 [facility] [address] [facility] [id number] [address] [place] [phone] Jul, [facility] [address] [facility] [id number] [address] [place] [address] Jun, Paranoid schizophrenia F20.0 ; [place] [facility] [place] drug therapy Z79.899 ; Attention deficit hyperactivity disorder (ADHD), inattentive type, 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 ; Posttraumatic stress disorder F43.10 and Borderline personality disorder F60.3 [facility] [address] [facility] [id number] [address] [place] [phone] Jun, Paranoid schizophrenia F20.0 ; Attention deficit hyperactivity disorder (ADHD), inattentive type, 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 ; Posttraumatic stress disorder F43.10 ; Borderline personality disorder F60.3 and [place] [facility] [place] drug therapy Z79.899 [facility] [address] [facility] [id number] [address] [place] [phone] Apr, Paranoid schizophrenia F20.0 ; Posttraumatic stress disorder F43.10 ; Attention deficit hyperactivity disorder (ADHD), inattentive type, 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 and Borderline personality disorder F60.3 [facility] [address] [facility] [id number] [address] [place] [phone] Apr, Paranoid schizophrenia F20.0 [facility] [address] [facility] [id number] [address] [place] [id number] Apr, Paranoid schizophrenia F20.0 ; Posttraumatic stress disorder F43.10 ; Attention deficit hyperactivity disorder (ADHD), inattentive type, 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 and Borderline personality disorder F60.3 [facility] [address] [facility] [id number] [address] [place] [phone] Mar, Paranoid schizophrenia F20.0 [facility] [address] [facility] [id number] [address] [place] [phone] Mar, Paranoid schizophrenia F20.0 ; Posttraumatic stress disorder F43.10 ; Attention deficit hyperactivity disorder (ADHD), inattentive type, 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 and Borderline personality disorder F60.3 [facility] [address] [place] [id number] [address] [place] [address] February, Paranoid schizophrenia F20.0 [facility] [address] [facility] [id number] [address] [place] [address] Jan, Paranoid schizophrenia F20.0 ; Posttraumatic stress disorder F43.10 ; Attention deficit hyperactivity disorder (ADHD), inattentive type, 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 and Borderline personality disorder F60.3 [facility] [address] [place] [id number] [address] [place] [address] Dec, Paranoid schizophrenia F20.0 ; Posttraumatic stress disorder F43.10 ; Attention deficit hyperactivity disorder (ADHD), inattentive type, 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 and Borderline personality disorder F60.3 [facility] [address] [place] [id number] [address] [place] [address] Dec, Paranoid schizophrenia F20.0 ; Posttraumatic stress disorder F43.10 ; Attention deficit hyperactivity disorder (ADHD), inattentive type, 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 and Borderline personality disorder F60.3 [facility] [address] [place] [id number] [address] [place] [phone] Oct, Paranoid schizophrenia F20.0 ; Posttraumatic stress disorder F43.10 ; Attention deficit hyperactivity disorder (ADHD), inattentive type, 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 and Borderline personality disorder F60.3 [facility] [address] [place] [id number] [address] [place] [phone] Oct, Paranoid schizophrenia F20.0 ; Posttraumatic stress disorder F43.10 ; Attention deficit hyperactivity disorder (ADHD), inattentive type, 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 [address] [id number] [address] [place] [address] Jul, Dry skin dermatitis L85.3 [facility] [address] [id number] [address] [place] [phone] Jul, [facility] [address] [facility] [id number] [address] [place] [phone] Jul, Paranoid schizophrenia F20.0 [facility] [address] [id number] [address] [place] [address] May, Paranoid schizophrenia F20.0 ; Posttraumatic stress disorder F43.10 ; Attention deficit hyperactivity disorder (ADHD), inattentive type, 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 and Borderline personality disorder F60.3 [facility] [address] [id number] [address] [place] [address] May, [facility] [address] [id number] [address] [place] [address] May, Paranoid schizophrenia F20.0 [facility] [address] [facility] [id number] [address] [place] [phone] May, Paranoid schizophrenia F20.0 ; Posttraumatic stress disorder F43.10 ; Attention deficit hyperactivity disorder (ADHD), inattentive type, 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 and Borderline personality disorder F60.3 [facility] [address] [id number] [address] [place] [address] Apr, [facility] [address] [id number] [address] [place] [address] Apr, Paranoid schizophrenia F20.0 ; Posttraumatic stress disorder F43.10 ; Attention deficit hyperactivity disorder (ADHD), inattentive type, 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 and Borderline personality disorder F60.3 [facility] [address] [id number] [address] [place] [address] Apr, [facility] [address] [id number] [address] [place] [phone] Apr, Schizoaffective disorder, de pressive type F25.1 and Borderline personality disorder F60.3 [facility] [address] [id number] [address] [place] [phone] Apr, Paranoid schizophrenia F20.0 ; Posttraumatic stress disorder F43.10 ; Attention deficit hyperactivity disorder (ADHD), inattentive type, 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 and Borderline personality disorder F60.3 [facility] [address] [id number] [address] [place] [address] Apr, [facility] [address] [id number] [address] [place] [address] Apr, Paranoid schizophrenia F20.0 ; Posttraumatic stress disorder F43.10 ; Attention deficit hyperactivity disorder (ADHD), inattentive type, 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 and Borderline personality disorder F60.3 [facility] [address] [id number] [address] [place] [address] Apr, [facility] [address] [id number] [address] [place] [address] Mar, Paranoid schizophrenia F20.0 [facility] [address] [id number] [address] [place] [phone] Mar, [facility] [address] [id number] [address] [place] [address] Mar, Paranoid schizophrenia F20.0 ; Posttraumatic stress disorder F43.10 ; Attention deficit hyperactivity disorder (ADHD), inattentive type, 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 and Borderline personality disorder F60.3 [facility] [address] [id number] [address] [place] [address] February, Paranoid schizophrenia F20.0 [facility] [address] [id number] [address] [place] [address] February, Paranoid schizophrenia F20.0 ; Posttraumatic stress disorder F43.10 ; Attention deficit hyperactivity disorder (ADHD), inattentive type, 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 and Borderline personality disorder F60.3 [facility] [address] [facility] [id number] [address] [place] [address] February, Paranoid schizophrenia F20.0 ; Posttraumatic stress disorder F43.10 ; Attention deficit hyperactivity disorder (ADHD), inattentive type, 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 and Borderline personality disorder F60.3 [facility] [address] [id number] [address] [place] [phone] February, [facility] [address] [id number] [address] [place] [address] February, Paranoid schizophrenia F20.0 [facility] [address] [id number] [address] [place] [phone] February, Paranoid schizophrenia F20.0 [facility] [address] [id number] [address] [place] [address] February, Paranoid schizophrenia F20.0 ; Posttraumatic stress disorder F43.10 ; Attention deficit hyperactivity disorder (ADHD), inattentive type, 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 and Borderline personality disorder F60.3 [facility] [address] [id number] [address] [place] [address] Jan, Paranoid schizophrenia F20.0 ; Posttraumatic stress disorder F43.10 ; Attention deficit hyperactivity disorder (ADHD), inattentive type, 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 and Borderline personality disorder F60.3 [facility] [address] [facility] [id number] [address] [place] [id number] Jan, Paranoid schizophrenia F20.0 [facility] [address] [id number] [address] [place] [address] Jan, Paranoid schizophrenia F20.0 [facility] [address] [id number] [address] [place] [address] Jan, Paranoid schizophrenia F20.0 ; Posttraumatic stress disorder F43.10 ; Attention deficit hyperactivity disorder (ADHD), inattentive type, 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 and Borderline personality disorder F60.3 [facility] [address] [id number] [address] [place] [address] Dec, [facility] [address] [id number] [address] [place] [address] Nov, Paranoid schizophrenia F20.0 ; Posttraumatic stress disorder F43.10 ; Attention deficit hyperactivity disorder (ADHD), inattentive type, 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 and Borderline personality disorder F60.3 [facility] [address] [id number] [address] [place] [address] Nov, [facility] [address] [id number] [address] [place] [phone] Oct, Paranoid schizophrenia F20.0 [facility] [address] [id number] [address] [place] [id number] Oct, Paranoid schizophrenia F20.0 ; Posttraumatic stress disorder F43.10 ; Attention deficit hyperactivity disorder (ADHD), inattentive type, 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 ; Borderline personality disorder F60.3 and Other [facility] (current) drug therapy Z79.899 [facility] [address] [id number] [address] [place] [address] Oct, [facility] [address] [id number] [address] [place] [phone] Oct, [facility] [address] [id number] [address] [place] [phone] Sep, [facility] [address] [id number] [address] [place] [address] Sep, Paranoid schizophrenia F20.0 ; Posttraumatic stress disorder F43.10 ; Attention deficit hyperactivity disorder (ADHD), inattentive type, 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 and Borderline personality disorder F60.3 [facility] [address] [id number] [address] [place] [address] Sep, Paranoid schizophrenia F20.0 [facility] [address] [id number] [address] [place] [address] Aug, Paranoid schizophrenia F20.0 ; Posttraumatic stress disorder F43.10 ; Attention deficit hyperactivity disorder (ADHD), inattentive type, 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 and Borderline personality disorder F60.3 [facility] [address] [id number] [address] [place] [address] Aug, Paranoid schizophrenia F20.0 ; Posttraumatic stress disorder F43.10 ; Attention deficit hyperactivity disorder (ADHD), inattentive type, 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 and Borderline personality disorder F60.3 [facility] [address] [facility] [id number] [address] [place] [address] Aug, [facility] [address] [id number] [address] [place] [phone] Jul, Paranoid schizophrenia F20.0 ; Posttraumatic stress disorder F43.10 ; Attention deficit hyperactivity disorder (ADHD), inattentive type, 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 and Borderline personality disorder F60.3 [facility] [address] [facility] [id number] [address] [place] [address] Jul, Paranoid schizophrenia F20.0 [facility] [address] [id number] [address] [place] [address] Jul, Paranoid schizophrenia F20.0 ; Posttraumatic stress disorder F43.10 ; Attention deficit hyperactivity disorder (ADHD), inattentive type, 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 and Borderline personality disorder F60.3 [facility] [address] [id number] [address] [place] [address] Jun, Paranoid schizophrenia F20.0 ; Posttraumatic stress disorder F43.10 ; Attention deficit hyperactivity disorder (ADHD), inattentive type, 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 and Borderline personality disorder F60.3 [facility] [address] [id number] [address] [place] [address] May, [facility] [place] [facility] dr ug therapy Z79.899 [facility] [address] [id number] [address] [place] [address] May, [facility] [address] [id number] [address] [place] [address] May, [facility] [address] [id number] [address] [place] [phone] May, Attention deficit hyperactiv ity disorder (ADHD), inattentive type, mild F90.0 [facility] [address] [id number] [address] [place] [address] May, [facility] [address] [id number] [address] [place] [address] May, Attention deficit hyperactiv ity disorder (ADHD), inattentive type, mild F90.0 [facility] [address] [id number] [address] [place] [address] May, Paranoid schizophrenia F20.0 ; Posttraumatic stress disorder F43.10 ; Attention deficit hyperactivity disorder (ADHD), inattentive type, 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 and Other [facility] (current) drug therapy Z79.899 [facility] [address] [id number] [address] [place] [address] Apr, Paranoid schizophrenia F20.0 [facility] [address] [id number] [address] [place] [address] Apr, Paranoid schizophrenia F20.0 ; Posttraumatic stress disorder F43.10 and Attention deficit hyperactivity disorder (ADHD), inattentive type, 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 [facility] [address] [id number] [address] [place] [address] February, [facility] [address] [id number] [address] [place] [address] February, Paranoid schizophrenia F20.0 ; Posttraumatic stress disorder F43.10 and Attention deficit hyperactivity disorder (ADHD), inattentive type, 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 [facility] [address] [id number] [address] [place] [address] February, Paranoid schizophrenia F20.0 ; Posttraumatic stress disorder F43.10 and Attention deficit hyperactivity disorder (ADHD), inattentive type, 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 [facility] [address] [id number] [address] [place] [address] Jan, Paranoid schizophrenia F20.0 ; Posttraumatic stress disorder F43.10 and Attention deficit hyperactivity disorder (ADHD), inattentive type, 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 [facility] [address] [id number] [address] [place] [id number] Dec, Dental examination Z01.20 [facility] [address] [id number] [address] [place] [id number] Nov, Dental examination Z01.20 [facility] [address] [id number] [address] [place] [id number] Nov, Dental examination Z01.20 [facility] [address] [id number] [address] [place] [id number] Nov, Dental caries K02.9 [facility] [address] [id number] [address] [place] [address] Nov, High risk medication use Z79 .899 [facility] [address] [id number] [address] [place] [address] Nov, Paranoid schizophrenia F20.0 ; Posttraumatic stress disorder F43.10 ; Attention deficit hyperactivity disorder (ADHD), inattentive type, 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 and Borderline personality disorder in adult F60.3 [facility] [address] [id number] [address] [place] [id number] Oct, Dental caries K02.9 [facility] [address] [id number] [address] [place] [phone] 05 Sep, 2016 Paranoid schizophrenia F20.0 ; Posttraumatic stress disorder F43.10 and Attention deficit hyperactivity disorder (ADHD), inattentive type, 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 [facility] [address] [id number] [address] [place] [address] Aug, Paranoid schizophrenia F20.0 ; Posttraumatic stress disorder F43.10 and Attention deficit hyperactivity disorder (ADHD), inattentive type, 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 [facility] [address] [id number] [address] [place] [phone] Aug, Strep throat J02.0 and Cough R05 [facility] [address] [id number] [address] [place] [address] Aug, [facility] [address] [id number] [address] [place] [address] Jul, Paranoid schizophrenia F20.0 ; Posttraumatic stress disorder F43.10 and Attention deficit hyperactivity disorder (ADHD), inattentive type, 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 [facility] [address] [id number] [address] [place] [address] Jul, [facility] [address] [id number] [address] [place] [address] Jun, Paranoid schizophrenia F20.0 ; Posttraumatic stress disorder F43.10 and Attention deficit hyperactivity disorder (ADHD), inattentive type, 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 [facility] [address] [id number] [address] [place] [id number] Jun, Dental examination Z01.20 [facility] [address] [id number] [address] [place] [phone] Jun, [facility] [address] [id number] [address] [place] [address] May, Paranoid schizophrenia F20.0 [facility] [address] [id number] [address] [place] [address] May, Paranoid schizophrenia F20.0 ; Posttraumatic stress disorder F43.10 and Attention deficit hyperactivity disorder (ADHD), inattentive type, 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 [facility] [address] [id number] [address] [place] [address] [place] [address] May, [facility] [address] [id number] [address] [place] [address] May, Paranoid schizophrenia F20.0 [facility] [address] [id number] [address] [place] [address] May, [facility] [address] [id number] [address] [place] [address] May, Paranoid schizophrenia F20.0 [facility] [address] [id number] [address] [place] [phone] May, Schizoaffective disorder, un specified F25.9 [facility] [address] [id number] [address] [place] [address] May, Schizoaffective disorder, un specified F25.9 [facility] [address] [id number] [address] [place] [address] May, [facility] [address] [id number] [address] [place] [address] May, Paranoid schizophrenia F20.0 [facility] [address] [id number] [address] [place] [address] May, Paranoid schizophrenia F20.0 ; Posttraumatic stress disorder F43.10 and Attention deficit hyperactivity disorder (ADHD), inattentive type, 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 [facility] [facility] [address] [id number] [address] [place] [address] Mar, [facility] [address] [id number] [address] [place] [address] Mar, Paranoid schizophrenia F20.0 ; Posttraumatic stress disorder F43.10 and Attention deficit hyperactivity disorder (ADHD), inattentive type, 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 [facility] [address] [id number] [address] [place] [address] Mar, Paranoid schizophrenia F20.0 [facility] [address] [id number] [address] [place] [address] Mar, Paranoid schizophrenia F20.0 ; Attention deficit hyperactivity disorder (ADHD), inattentive type, 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 and Posttraumatic stress disorder F43.10 [facility] [address] [id number] [address] [place] [address] Mar, [facility] [address] [id number] [address] [place] [address] Mar, Paranoid schizophrenia F20.0 ; Posttraumatic stress disorder F43.10 and Attention deficit hyperactivity disorder (ADHD), inattentive type, 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 [facility] [address] [id number] [address] [place] [address] February, [facility] [address] [id number] [address] [place] [address] February, [facility] [address] [id number] [address] [place] [address] February, [facility] [address] [id number] [address] [place] [address] February, [facility] [address] [id number] [address] [place] [address] Jan, Paranoid schizophrenia F20.0 [facility] [address] [id number] [address] [place] [id number] Jan, Dental examination Z01.20 [facility] [address] [id number] [address] [place] [id number] Jan, Dental caries K02.9 [facility] [address] [id number] [address] [place] [id number] Jan, Dental examination Z01.20 [facility] [address] [id number] [address] [place] [id number] Dec, Encounter for dental examina tion Z01.20 [facility] [address] [id number] [address] [place] [address] Dec, Paranoid schizophrenia F20.0 [facility] [address] [id number] [address] [place] [address] [id number] Dec, Dental examination Z01.20 [facility] [address] [id number] [address] [place] [address] Dec, [facility] [address] [id number] [address] [place] [address] Dec, Paranoid schizophrenia F20.0 ; Posttraumatic stress disorder F43.10 and Attention deficit hyperactivity disorder (ADHD), inattentive type, 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 [facility] [address] [id number] [address] [place] [address] Nov, Schizoaffective disorder, un specified F25.9 [facility] [address] [id number] [address] [place] [address] Oct, Paranoid schizophrenia F20.0 [facility] [address] [id number] [address] [place] [address] Oct, [facility] [address] [id number] [address] [place] [address] Sep, Paranoid schizophrenia F20.0 ; Posttraumatic stress disorder F43.10 and Attention deficit hyperactivity disorder (ADHD), inattentive type, 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 [facility] [address] [id number] [address] [place] [address] Sep, [facility] [address] [facility] [id number] [address] [place] [address] Sep, Paranoid schizophrenia F20.0 ; Posttraumatic stress disorder F43.10 and Attention deficit hyperactivity disorder (ADHD), inattentive type, 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 [facility] [address] [id number] [address] [place] [address] Aug, Paranoid schizophrenia F20.0 [facility] [address] [id number] [address] [place] [address] Aug, [facility] [address] [facility] [id number] [address] [place] [address] Aug, Posttraumatic stress disorde r F43.10 ; Paranoid schizophrenia F20.0 and Attention deficit hyperactivity disorder (ADHD), inattentive type, 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 [facility] [address] [facility] [id number] [address] [place] [address] Jul, Bipolar disorder, unspecifie d F31.9 [facility] [address] [facility] [id number] [address] [place] [address] Jul, [facility] [address] [facility] [id number] [address] [place] [address] Jun, [facility] [address] [facility] [id number] [address] [place] [address] Jun, Schizoaffective disorder, ch ronic 295.72 ; Posttraumatic stress disorder 309.81 and Attention deficit disorder of childhood without mention of hyperactivity 314.00 [facility] [address] [id number] [address] [place] [address] May, [facility] [address] [facility] [id number] [address] [place] [address] May, [facility] [address] [id number] [address] [place] [address] May, Schizoaffective disorder, ch ronic 295.72 ; Posttraumatic stress disorder 309.81 ; Attention deficit disorder of childhood without mention of hyperactivity 314.00 and Bipolar disorder, unspecified 296.80 [facility] [address] [facility] [id number] [address] [place] [address] Apr, Schizoaffective disorder, ch ronic 295.72 [facility] [address] [facility] [id number] [address] [place] [address] Apr, [facility] [address] [facility] [id number] [address] [place] [address] Apr, Schizoaffective disorder, ch ronic 295.72 ; Posttraumatic stress disorder 309.81 and Attention deficit disorder of childhood without mention of hyperactivity 314.00 [facility] [address] [id number] [address] [place] [address] Mar, Disorganized schizophrenia, 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 [facility] [address] [id number] [address] [place] [address] Mar, [facility] [address] [id number] [address] [place] [address] Mar, [facility] [address] [id number] [address] [place] [address] Mar, [facility] [address] [id number] [address] [place] [address] Mar, [facility] [address] [id number] [address] [place] [address] February, Schizoaffective disorder, ch ronic 295.72 [facility] [address] [id number] [address] [place] [address] February, [facility] [address] [id number] [address] [place] [address] February, Attention 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 ; Posttraumatic stress disorder 309.81 and Schizoaffective disorder, chronic 295.72 [facility] [address] [id number] [address] [place] [address] 29 Jan, 2015 [facility] [address] [id number] [address] [place] [address] 14 Jan, 2015 [facility] [address] [id number] [address] [place] [address] Jan, [facility] [address] [facility] [id number] [address] [place] [address] Dec, [facility] [address] [id number] [address] [place] [address] Dec, [facility] [address] [id number] [address] [place] [address] Dec, [facility] [address] [id number] [address] [place] [address], [place] [address] Dec, [facility] [address] [id number] [address] [place] [address], [place] [address] Dec, [facility] [address] [id number] [address] [place] [address], [place] [address] Dec, [facility] [address] [id number] [address] [place] [address], [place] [address] Dec, [facility] [address] [id number] [address] [place] [address], [place] [address] Dec, [facility] [address] [id number] [address] [place] [address], [place] [address] Nov, 2014 [facility] [address] [id number] [address] [place] [address], [place] [address] Nov, [facility] [address] [id number] [address] [place] [address], [place] [address] Nov, 2014 [facility] [address] [id number] [address] [place] [address], [place] [address] Nov, 2014 [facility] [address] [id number] [address] [place] [address], [place] [address] Nov, 2014 [facility] [address] [id number] [address] [place] [address], [place] [address] Nov, 2014 [facility] [address] [id number] [address] [place] [address], [place] [address] Nov, 2014 [facility] [address] [id number] [address] [place] [address], [place] [address] Nov, 2014 [facility] [address] [id number] [address] [place] [address], [place] [address] Nov, 2014 [facility] [address] [id number] [address] [place] [address], [place] [address] Nov, 2014 [facility] [address] [id number] [address] [place] [address], [place] [address] Oct, [facility] [address] [id number] [address] [place] [address], [place] [address] Oct, [facility] [address] [id number] [address] [place] [address], [place] [address] Oct, [facility] [address] [id number] [address] [place] [address], [place] [address] Oct, [facility] [address] [id number] [address] [place] [address], [place] [address] 15 Oct, 2014 [facility] [address] [id number] [address] [place] [address], [place] [address] Oct, [facility] [address] [id number] [address] [place] [address], [place] [address] Oct, [facility] [address] [id number] [address] [place] [address], [place] [address] 17 Sep, 2014 [facility] [address] [id number] [address] [place] [address], [place] [address] 17 Sep, 2014 [facility] [address] [id number] [address] [place] [address], [place] [address] 15 Sep, 2014 [facility] [address] [id number] [address] [place] [address], [place] [address] 15 Sep, 2014 [facility] [address] [id number] [address] [place] [address], [place] [address] 20 Aug, 2014 [facility] [address] [id number] [address] [place] [address], [place] [address] 20 Aug, 2014 [facility] [address] [id number] [address] [place] [address], [place] [address] 14 Aug, 2014 [facility] [address] [id number] [address] [place] [address], [place] [address] 14 Aug, 2014 [facility] [address] [id number] [address] [place] [address], [place] [address] Aug, [facility] [address] [id number] [address] [place] [address], [place] [address] Aug, [facility] [address] [id number] [address] [place] [address], [place] [address] 29 Jul, 2014 [facility] [address] [id number] [address] [place] [address], [place] [address] Jul, [facility] [address] [id number] [address] [place] [address], [place] [address] Jul, [facility] [address] [id number] [address] [place] [address], [place] [address] Jul, [facility] [address] [id number] [address] [place] [address], [place] [address] Jul, [facility] [address] [id number] [address] [place] [address], [place] [address] Jul, [facility] [address] [id number] [address] [place] [address], [place] [address] 27 Jun, 2013 [facility] [address] [id number] [address] [place] [address], [place] [address] 27 Sep, 2013 [facility] [address] [id number] [address] [place] [address], [place] [address] 26 Jun, 2013 [facility] [address] [id number] [address] [place] [address], [place] [address] 26 Sep, 2013 [facility] [address] [id number] [address] [place] [address], [place] [address] 26 Sep, 2013 [facility] [address] [id number] [address] [place] [address], [place] [address] 26 Sep, 2013 [facility] [address] [id number] [address] [place] [address], [place] [address] 16 Sep, 2013 [facility] [address] [id number] [address] [place] [address], [place] [address] 16 Jun, 2013 [facility] [address] [id number] [facility] [place] [address] Jun, [facility] [address] [id number] [address] [place] [address], [place] [address] Jun, [facility] [address] [id number] [address] [place] [address], [place] [address] Jun, [facility] [address] [id number] [address] [place] [address], [place] [address] May, [facility] [address] [id number] [address] [place] [address], [place] [address] May, [facility] [address] [id number] [address] [place] [address], [place] [address] May, [facility] [address] [id number] [address] [place] [address], [place] [address] May, [facility] [address] [id number] [address] [place] [address], [place] [address] May, [facility] [address] [id number] [address] [place] [address], [place] [address] May, [facility] [address] [id number] [address] [place] [address], [place] [address] May, [facility] [address] [id number] [address] [place] [address], [place] [address] May, [facility] [address] [id number] [address] [place] [address], [place] [address] May, [facility] [address] [id number] [address] [place] [address], [place] [address] May, [facility] [address] [id number] [address] [place] [address], [place] [address] Apr, [facility] [address] [id number] [address] [place] [address], [place] [address] Apr, [facility] [address] [id number] [address] [place] [address], [place] [address] Apr, [facility] [address] [id number] [address] [place] [address], [place] [address] Apr, [facility] [address] [id number] [address] [place] [address], [place] [address] Apr, [facility] [address] [id number] [address] [place] [address], [place] [address] Apr, [facility] [address] [id number] [address] [place] [address], [place] [address] Apr, [facility] [address] [id number] [address] [place] [address], [place] [address] Apr, [facility] [address] [id number] [address] [place] [address], [place] [address] Apr, [facility] [address] [id number] [address] [place] [address], [place] [address] Apr, [facility] [address] [id number] [address] [place] [address], [place] [address] Mar, [facility] [address] [id number] [address] [place] [address], [place] [address] Mar, [facility] [address] [id number] [address] [place] [address], [place] [address] Mar, [facility] [address] [id number] [address] [place] [address], [place] [address] Mar, [facility] [address] [id number] [address] [place] [address], [place] [address] Mar, [facility] [address] [id number] [address] [place] [address], [place] [address] Mar, [facility] [address] [id number] [address] [place] [address], [place] [address] Mar, [facility] [address] [id number] [address] [place] [address], [place] [address] 16 Mar, 2014 [facility] [address] [id number] [address] [place] [address], [place] [address] 16 Mar, 2014 [facility] [address] [id number] [facility] [place] [address] Mar, [facility] [address] [id number] [address] [place] [address], [place] [address] Mar, [facility] [address] [id number] [address] [place] [address], [place] [address] Mar, [facility] [address] [id number] [address] [place] [address], [place] [address] Mar, [facility] [address] [id number] [address] [place] [address], [place] [address] Mar, [facility] [address] [id number] [address] [place] [address], [place] [address] Mar, [facility] [address] [id number] [address] [place] [address], [place] [address] Mar, [facility] [address] [id number] [address] [place] [address], [place] [address] Mar, [facility] [address] [id number] [address] [place] [address], [place] [address] Mar, [facility] [address] [id number] [address] [place] [address], [place] [address] Mar, [facility] [address] [id number] [address] [place] [address], [place] [address] Mar, [facility] [address] [id number] [address] [place] [address], [place] [address] February, [facility] [address] [id number] [address] [place] [address], [place] [address] February, [facility] [address] [id number] [address] [place] [address], [place] [address] February, [facility] [address] [id number] [address] [place] [address], [place] [address] February, [facility] [address] [id number] [facility] [place] [address] February, [facility] [address] [id number] [facility] [place] [address] February, [facility] [address] [id number] [facility] [place] [address] February, [facility] [address] [id number] [address] [place] [address], [place] [address] February, [facility] [address] [id number] [address] [place] [address], [place] [address] February, [facility] [address] [id number] [address] [place] [address], [place] [address] February, [facility] [address] [id number] [address] [place] [address], [place] [address] February, [facility] [address] [id number] [address] [place] [address], [place] [address] February, [facility] [address] [id number] [address] [place] [address], [place] [address] February, [facility] [address] [id number] [address] [place] [address], [place] [address] February, [facility] [address] [id number] [address] [place] [address], [place] [address] February, [facility] [address] [id number] [address] [place] [address], [place] [address] February, [facility] [address] [id number] [address] [place] [address], [place] [address] February, [facility] [address] [id number] [address] [place] [address], [place] [address] February, [facility] [address] [id number] [address] [place] [address], [place] [address] February, [facility] [address] [id number] [address] [place] [address], [place] [address] February, [facility] [address] [id number] [facility] [place] [address] February, [facility] [address] [id number] [address] [place] [address], [place] [address] Jan, [facility] [address] [id number] [address] [place] [address], [place] [address] Jan, [facility] [address] [id number] [address] [place] [address], [place] [address] Jan, [facility] [address] [id number] [address] [place] [address], [place] [address] Jan, [facility] [address] [id number] [address] [place] [address], [place] [address] Jan, [facility] [address] [id number] [address] [place] [address], [place] [address] Jan, [facility] [address] [id number] [address] [place] [address], [place] [address] Jan, [facility] [address] [id number] [address] [place] [address], [place] [address] Jan, [facility] [address] [id number] [address] [place] [address], [place] [address] Dec, [facility] [address] [id number] [address] [place] [address], [place] [address] Dec, [facility] [address] [id number] [address] [place] [address], [place] [address] 20 Dec, 2013 [facility] [address] [id number] [address] [place] [address], [place] [address] 19 Dec, 2013 [facility] [address] [id number] [address] [place] [address], [place] [address] 19 Dec, 2013 [facility] [address] [id number] [address] [place] [address], [place] [address] 15 Dec, 2013 [facility] [address] [id number] [address] [place] [address], [place] [address] 15 Dec, 2013 [facility] [address] [id number] [address] [place] [address], [place] [address] 11 Dec, 2013 [facility] [address] [id number] [address] [place] [address], [place] [address] 10 Dec, 2013 [facility] [address] [id number] [address] [place] [address], [place] [address] 10 Dec, 2013 [facility] [address] [id number] [address] [place] [address], [place] [address] 18 Nov, 2013 [facility] [address] [id number] [address] [place] [address], [place] [address] Nov, [facility] [address] [id number] [address] [place] [address], [place] [address] Nov, [facility] [address] [id number] [address] [place] [address], [place] [address] Nov, [facility] [address] [id number] [address] [place] [address], [place] [address] Nov, [facility] [address] [id number] [address] [place] [address], [place] [address] Oct, [facility] [address] [id number] [address] [place] [address], [place] [address] Oct, [facility] [address] [id number] [address] [place] [address], [place] [address] Oct, [facility] [address] [id number] [address] [place] [address], [place] [address] Sep, [facility] [address] [id number] [address] [place] [address], [place] [address] Sep, [facility] [address] [id number] [address] [place] [address], [place] [address] Sep, [facility] [address] [id number] [address] [place] [address], [place] [address] Sep, [facility] [address] [id number] [address] [place] [address], [place] [address] Aug, [facility] [address] [id number] [address] [place] [address], [place] [address] Aug, [facility] [address] [id number] [address] [place] [address], [place] [address] Jul, [facility] [address] [id number] [address] [place] [address], [place] [address] Jul, [facility] [address] [id number] [address] [place] [address], [place] [address] Jul, [facility] [address] [id number] [address] [place] [address], [place] [address] Jul, [facility] [address] [id number] [address] [place] [address], [place] [address] Jul, [facility] [address] [id number] [address] [place] [address], [place] [address] Jun, [facility] [address] [id number] [address] [place] [address], [place] [address] 25 Jun, 2013 [facility] [address] [id number] [address] [place] [address], [place] [address] 19 Jun, 2013 [facility] [address] [id number] [address] [place] [address] 18 Jun, 2013 [facility] [address] [id number] [address] [place] [address] 16 Jun, 2013 [facility] [address] [id number] [address] [place] [address], [place] [address] 12 Jun, 2013 [facility] [address] [id number] [address] [place] [address], [place] [address] 11 Jun, 2013 [facility] [address] [id number] [address] [place] [address] 30 May, 2013 [facility] [address] [id number] [address] [place] [address] May, [facility] [address] [id number] [address] [place] [address], [place] [address] Apr, [facility] [address] [id number] [address] [place] [address], [place] [address] Apr, [facility] [address] [id number] [address] [place] [address], [place] [address] Apr, [facility] [address] [id number] [address] [place] [address], [place] [address] Mar, [facility] [address] [id number] [address] [place] [address], [place] [address] Mar, [facility] [address] [id number] [address] [place] [address], [place] [address] February, [facility] [address] [id number] [address] [place] [address], [place] [address] February, [facility] [address] [id number] [address] [place] [address], [place] [address] February, [facility] [address] [id number] [address] [place] [address], [place] [address] February, [facility] [address] [id number] [address] [place] [address], [place] [address] Jan, [facility] [address] [id number] [address] [place] [address], [place] [address] Jan, [facility] [address] [id number] [address] [place] [address], [place] [address] Jan, [facility] [address] [id number] [address] [place] [address], [place] [address] 29 Dec, 2012 [facility] [address] [id number] [address] [place] [address], [place] [address] Dec, [facility] [address] [id number] [address] [place] [address], [place] [address] Dec, [facility] [address] [id number] [address] [place] [address], [place] [address] Dec, [facility] [address] [id number] [address] [place] [address], [place] [address] Nov, [facility] [address] [id number] [address] [place] [address], [place] [address] Nov, [facility] [address] [id number] [address] [place] [address], [place] [address] Oct, [facility] [address] [id number] [address] [place] [address], [place] [address] Oct, [facility] [address] [id number] [address] [place] [address], [place] [address] Oct, [facility] [address] [id number] [address] [place] [address], [place] [address] Oct, [facility] [address] [id number] [address] [place] [address], [place] [address] Aug, [facility] [address] [id number] [address] [place] [address], [place] [address] Aug, [facility] [address] [id number] [address] [place] [address], [place] [address] Jun, [facility] [address] [id number] [address] [place] [address], [place] [address] May, [facility] [address] [id number] [address] [place] [address], [place] [address] May, [facility] [address] [id number] [address] [place] [address], [place] [address] Apr, [facility] [address] [id number] [address] [place] [address], [place] [address] Apr, [facility] [address] [id number] [address] [place] [address], [place] [address] Apr, [facility] [address] [id number] [address] [place] [address], [place] [address] 20 Mar, 2012 [facility] [address] [id number] [address] [place] [address], [place] [address] Mar, [facility] [address] [id number] [address] [place] [address], [place] [address] 13 Mar, 2012 [facility] [address] [id number] [address] [place] [address], [place] [address] Mar, [facility] [address] [id number] [address] [place] [address], [place] [address] 04 Mar, 2012 [facility] [address] [id number] [address] [place] [address], [place] [address] February, [facility] [address] [id number] [address] [place] [address], [place] [address] February, [facility] [address] [id number] [address] [place] [address], [place] [address] February, [facility] [address] [id number] [address] [place] [address], [place] [address] February, [facility] [address] [id number] [address] [place] [address], [place] [address] February, [facility] [address] [id number] [address] [place] [address], [place] [address] February, [facility] [address] [id number] [address] [place] [address], [place] [address] February, [facility] [address] [id number] [address] [place] [address], [place] [address] Jan, [facility] [address] [id number] [address] [place] [address], [place] [address] 18 Jan, 2012 [facility] [address] [id number] [address] [place] [address], [place] [address] 17 Jan, 2012 [facility] [address] [id number] [address] [place] [address], [place] [address] 13 Jan, 2012 [facility] [address] [id number] [address] [place] [address], [place] [address] 10 Jan, 2012 [facility] [address] [id number] [address] [place] [address], [place] [address] 04 Jan, 2012 [facility] [address] [id number] [address] [place] [address], [place] [address] 30 Dec, 2011 [facility] [address] [id number] [address] [place] [address], [place] [address] 24 Dec, 2011 [facility] [address] [id number] [address] [place] [address], [place] [address] 20 Dec, 2011 [facility] [address] [id number] [address] [place] [address], [place] [address] 13 Dec, 2011 [facility] [address] [id number] [address] [place] [address], [place] [address] Dec, [facility] [address] [id number] [address] [place] [address], [place] [address] 28 Nov, 2011 [facility] [address] [id number] [address] [place] [address], [place] [address] Nov, [facility] [address] [id number] [address] [place] [address], [place] [address] 25 Nov, 2011 [facility] [address] [id number] [address] [place] [address], [place] [address] 14 Nov, 2011 [facility] [address] [id number] [address] [place] [address], [place] [address] Nov, [facility] [address] [id number] [address] [place] [address], [place] [address] Nov, [facility] [address] [id number] [address] [place] [address], [place] [address] Oct, [facility] [address] [id number] [address] [place] [address], [place] [address] Oct, [facility] [address] [id number] [address] [place] [address], [place] [address] Oct, [facility] [address] [id number] [address] [place] [address], [place] [address] Oct, [facility] [address] [id number] [address] [place] [address], [place] [address] Oct, [facility] [address] [id number] [address] [place] [address], [place] [address] Sep, [facility] [address] [id number] [address] [place] [address], [place] [address] Sep, [facility] [address] [id number] [address] [place] [address], [place] [address] Sep, [facility] [address] [id number] [address] [place] [address], [place] [address] 14 Sep, 2011 [facility] [address] [id number] [address] [place] [address], [place] [address] Sep, [facility] [address] [id number] [address] [place] [address], [place] [address] Sep, [facility] [address] [id number] [address] [place] [address], [place] [address] Sep, [facility] [address] [id number] [address] [place] [address], [place] [address] Sep, [facility] [address] [id number] [address] [place] [address], [place] [address] Sep, [facility] [address] [id number] [address] [place] [address], [place] [address] Aug, [facility] [address] [id number] [address] [place] [address], [place] [address] Aug, [facility] [address] [id number] [address] [place] [address], [place] [address] Aug, [facility] [address] [id number] [address] [place] [address], [place] [address] Aug, [facility] [address] [id number] [address] [place] [address], [place] [address] Aug, [facility] [address] [id number] [address] [place] [address], [place] [address] Aug, [facility] [address] [id number] [address] [place] [address], [place] [address] Aug, [facility] [address] [id number] [address] [place] [address], [place] [address] Aug, [facility] [address] [id number] [address] [place] [address], [place] [address] Aug, [facility] [address] [id number] [address] [place] [address], [place] [address] Aug, [facility] [address] [id number] [address] [place] [address], [place] [address] Aug, [facility] [address] [id number] [address] [place] [address], [place] [address] Aug, [facility] [address] [id number] [address] [place] [address], [place] [address] Jul, [facility] [address] [id number] [address] [place] [address], [place] [address] Jul, [facility] [address] [id number] [address] [place] [address], [place] [address] 24 Jul, 2011 [facility] [address] [id number] [address] [place] [address], [place] [address] Jul, [facility] [address] [id number] [address] [place] [address], [place] [address] Jul, [facility] [address] [id number] [address] [place] [address], [place] [address] 19 Jul, 2011 [facility] [address] [id number] [address] [place] [address], [place] [address] 18 Jul, 2011 [facility] [address] [id number] [address] [place] [address] 11 Jul, 2011 [facility] [address] [id number] [address] [place] [address] Jul, [facility] [address] [id number] [address] [place] [address] Jul, [facility] [address] [id number] [address] [place] [address] Nov, [facility] [address] [facility] [id number] [address] [place] [address] Aug, [facility] [address] [facility] [id number] [address] [place] [address] Aug, [facility] [address] [facility] [id number] [address] [place] [address] Aug, [facility] [address] [facility] [id number] [address] [place] [address] Aug, [facility] [address] [facility] [id number] [address] [place] [address] Jul, IMMUNIZATIONS No Known Immunizations SOCIAL HISTORY [...] Suicide attempt by hanging 2015 Hospitalization History [facility] 01/30/2018-02/10/20 08 [facility]ization History [facility] 05/04/18- [facility] History [facility]
--- OUTSIDE RECORDS SUMMARY | 2020-04-04 02:28 | XMS REPORT ---
Author Author Kaila Onofre Doctor Organization [facility] Address Unknown Phone Unavailable Care Team Providers Care Social Media Marketing Specialist Name Role Phone Migration, Doctor Unavailable Unavailable PROBLEMS Type Condition ICD9-CM Code [id number] Code Onset Dates Condition S tatus SNOMED Code Problem Paranoid schizophrenia F20.0 Active 58800641 Problem Borderline personality disorder F60.3 Active 54613296 Problem Schizoaffective disorder, depressive type F25.1 Active 21092712 Problem Schizoaffective disorder, unspecified F25.9 Active 75590478 Problem Attention deficit hyperactivity disorder (ADHD), inattentive type, 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 51623936 Problem Posttraumatic stress disorder F43.10 Active 21648995 Problem High risk medication use Z79.899 Activ e [id number] ALLERGIES No Information ENCOUNTERS Encounter Location Date Diagnosis [facility] [id number] [place] [phone] Jan, [facility] [address] [id number] [address] [place] [phone] Dec, Paranoid schizophrenia F20.0 ; Attention deficit hyperactivity disorder (ADHD), inattentive type, 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 ; Posttraumatic stress disorder F43.10 and Borderline personality disorder F60.3 [facility] [address] [id number] [address] [place] [phone] Nov, Paranoid schizophrenia F20.0 ; Attention deficit hyperactivity disorder (ADHD), inattentive type, 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 [id number] [address] [place] [phone] Oct, [facility] [address] 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 [id number] [address] [place] [phone] Aug, [facility] [address] [facility] [id number] [address] [place] [phone] Aug, Acute bronchitis, unspecifie d organism J20.9 [facility] [address] [facility] [id number] [address] [place] [phone] Aug, [facility] [address] [facility] [id number] [address] [place] [phone] Aug, [facility] [address] 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 [id number] [address] [place] [phone] Jul, [facility] [address] 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 ; Posttraumatic stress disorder F43.10 ; Borderline personality disorder F60.3 and Other chcf (current) drug therapy Z79.899 [facility] [address] [id number] [address] [place] [phone] Apr, Paranoid schizophrenia F20.0 ; Posttraumatic stress disorder F43.10 ; Attention deficit hyperactivity disorder (ADHD), inattentive type, 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 and Borderline personality disorder F60.3 [facility] [address] [id number] [address] [place] [phone] Apr, Paranoid schizophrenia F20.0 [facility] [address] [id number] [address] [place] [phone] Apr, Paranoid schizophrenia F20.0 ; Posttraumatic stress disorder F43.10 ; Attention deficit hyperactivity disorder (ADHD), inattentive type, 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 and Borderline personality disorder F60.3 [facility] [address] [id number] [address] [place] [phone] Mar, Paranoid schizophrenia F20.0 [facility] [address] [id number] [address] [place] [phone] Mar, Paranoid schizophrenia F20.0 ; Posttraumatic stress disorder F43.10 ; Attention deficit hyperactivity disorder (ADHD), inattentive type, 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 and Borderline personality disorder F60.3 [facility] [address] [id number] [address] [place] [phone] February, Paranoid schizophrenia F20.0 [facility] [address] [id number] [address] [place] [phone] Jan, Paranoid schizophrenia F20.0 ; Posttraumatic stress disorder F43.10 ; Attention deficit hyperactivity disorder (ADHD), inattentive type, 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 and Borderline personality disorder F60.3 [facility] [address] [place] [address] Dec, Paranoid schizophrenia F20.0 ; Posttraumatic stress disorder F43.10 ; Attention deficit hyperactivity disorder (ADHD), inattentive type, 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 and Borderline personality disorder F60.3 [facility] [address] [phone] Dec, Paranoid schizophrenia F20.0 ; Posttraumatic stress disorder F43.10 ; Attention deficit hyperactivity disorder (ADHD), inattentive type, 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 and Borderline personality disorder F60.3 [facility] [address] [id number] [address] [place] [phone] Oct, Paranoid schizophrenia F20.0 ; Posttraumatic stress disorder F43.10 ; Attention deficit hyperactivity disorder (ADHD), inattentive type, 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 and Borderline personality disorder F60.3 [facility] [address] [place] [phone] Oct, Paranoid schizophrenia F20.0 ; Posttraumatic stress disorder F43.10 ; Attention deficit hyperactivity disorder (ADHD), inattentive type, 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 [id number] [address] [place] [phone] Jul, Dry skin dermatitis L85.3 [facility] [address] [id number] [address] [place] [phone] Jul, [facility] [address] [id number] [address] [place] [phone] Jul, Paranoid schizophrenia F20.0 [facility] [address] [id number] [address] [place] [phone] May, Paranoid schizophrenia F20.0 ; Posttraumatic stress disorder F43.10 ; Attention deficit hyperactivity disorder (ADHD), inattentive type, 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 and Borderline personality disorder F60.3 [facility] [address] [id number] [address] [place] [phone] May, [facility] [address] [id number] [address] [place] [phone] May, Paranoid schizophrenia F20.0 [facility] [address] [id number] [address] [place] [phone] May, Paranoid schizophrenia F20.0 ; Posttraumatic stress disorder F43.10 ; Attention deficit hyperactivity disorder (ADHD), inattentive type, 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 and Borderline personality disorder F60.3 [facility] [address] [id number] [address] [place] [phone] Apr, [facility] [address] [id number] [address] [place] [phone] Apr, Paranoid schizophrenia F20.0 ; Posttraumatic stress disorder F43.10 ; Attention deficit hyperactivity disorder (ADHD), inattentive type, 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 and Borderline personality disorder F60.3 [facility] [address] [id number] [address] [place] [phone] Apr, [facility] [address] [id number] [address] [place] [phone] Apr, Schizoaffective disorder, de pressive type F25.1 and Borderline personality disorder F60.3 [facility] [address] [id number] [address] [place] [address] Apr, Paranoid schizophrenia F20.0 ; Posttraumatic stress disorder F43.10 ; Attention deficit hyperactivity disorder (ADHD), inattentive type, 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 and Borderline personality disorder F60.3 [facility] [address] [id number] [address] [place] [phone] Apr, [facility] [address] [id number] [address] [place] [phone] Apr, Paranoid schizophrenia F20.0 ; Posttraumatic stress disorder F43.10 ; Attention deficit hyperactivity disorder (ADHD), inattentive type, 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 and Borderline personality disorder F60.3 [facility] [address] [id number] [address] [place] [address], [place] [address] Apr, [facility] [address] [id number] [address] [place] [phone] Mar, Paranoid schizophrenia F20.0 [facility] [address] [id number] [address] [place] [phone] Mar, [facility] [address] [id number] [address] [place] [phone] Mar, Paranoid schizophrenia F20.0 ; Posttraumatic stress disorder F43.10 ; Attention deficit hyperactivity disorder (ADHD), inattentive type, 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 and Borderline personality disorder F60.3 [facility] [address] [id number] [address] [place] [phone] February, Paranoid schizophrenia F20.0 [facility] [address] [id number] [address] [place] [phone] February, Paranoid schizophrenia F20.0 ; Posttraumatic stress disorder F43.10 ; Attention deficit hyperactivity disorder (ADHD), inattentive type, 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 [id number] [address] [place] [phone] February, [facility] [address] [facility] [id number] [address] [place] [phone] February, Paranoid schizophrenia F20.0 [facility] [address] [facility] [id number] [address] [place] [phone] February, Paranoid schizophrenia F20.0 [facility] [address] 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 [id number] [address] [place] [phone] Jan, Paranoid schizophrenia F20.0 [facility] [address] [facility] [id number] [address] [place] [phone] Jan, Paranoid schizophrenia F20.0 [facility] [address] 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 [id number] [address] [place] [phone] Dec, [facility] [address] 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 and Borderline personality disorder F60.3 [facility] [address] [id number] [address] [place] [phone] Nov, [facility] [address] [id number] [address] [place] [phone] Oct, Paranoid schizophrenia F20.0 [facility] [address] [id number] [address] [place] [phone] Oct, Paranoid schizophrenia F20.0 ; Posttraumatic stress disorder F43.10 ; Attention deficit hyperactivity disorder (ADHD), inattentive type, 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 ; Borderline personality disorder F60.3 and Other meterman (current) drug therapy Z79.899 [facility] [address] [id number] [address] [place] [phone] Oct, [facility] [address] [id number] [address] [place] [phone] Oct, [facility] [address] [id number] [address] [place] [phone] Sep, [facility] [address] [id number] [address] [place] [phone] Sep, Paranoid schizophrenia F20.0 ; Posttraumatic stress disorder F43.10 ; Attention deficit hyperactivity disorder (ADHD), inattentive type, 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 and Borderline personality disorder F60.3 [facility] [address] [id number] [address] [place] [phone] Sep, Paranoid schizophrenia F20.0 [facility] [address] [id number] [address] [place] [phone] Aug, Paranoid schizophrenia F20.0 ; Posttraumatic stress disorder F43.10 ; Attention deficit hyperactivity disorder (ADHD), inattentive type, 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 [id number] [address] [place] [phone] May, Other chcf (current) dr gabriel parra Z79.899 [facility] [address] [facility] [id number] [address] [place] [phone] May, [facility] [address] [facility] [id number] [address] [place] [phone] May, [facility] [address] [facility] [id number] [address] [place] [phone] May, Attention deficit hyperactiv ity disorder (ADHD), inattentive type, 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 [id number] [address] [place] [phone] Apr, Paranoid schizophrenia F20.0 [facility] [address] 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 [facility] [address] [id number] [address] [place] [id number] Dec, Dental examination Z01.20 [facility] [address] [id number] [address] [place] [id number] 27 Nov, 2016 Dental examination Z01.20 [facility] [address] [id number] [address] [place] [id number] 23 Nov, 2016 Dental examination Z01.20 [facility] [address] [id number] [address] [place] [address] [id number] 14 Nov, 2016 Dental caries K02.9 [facility] [address] [facility] [id number] [address] [place] [phone] 13 Nov, 2016 High risk medication use Z79 .899 [facility] [address] 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 [id number] [address] [place] [phone] Aug, Strep throat J02.0 and Cough R05 [facility] [address] 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 [facility] [address] [id number] [address] [place] [phone] Jul, [facility] [address] [id number] [address] [place] [phone] Jun, Paranoid schizophrenia F20.0 ; Posttraumatic stress disorder F43.10 and Attention deficit hyperactivity disorder (ADHD), inattentive type, 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 [facility] [address] [id number] [place] [id number] Jun, Dental examination Z01.20 [facility] [address] [id number] [address] [place] [phone] Jun, [facility] [address] [id number] [address] [place] [phone] May, Paranoid schizophrenia F20.0 [facility] [address] [id number] [address] [place] [phone] May, Paranoid schizophrenia F20.0 ; Posttraumatic stress disorder F43.10 and Attention deficit hyperactivity disorder (ADHD), inattentive type, 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 [facility] [address] [id number] [address] [place] [phone] May, [facility] [address] [id number] [address] [place] [phone] May, Paranoid schizophrenia F20.0 [facility] [address] [id number] [address] [place] [id number] May, [facility] [address] [id number] [address] [place] [address] May, Paranoid schizophrenia F20.0 [facility] [address] [id number] [address] [place] [phone] May, Schizoaffective disorder, un specified F25.9 [facility] [address] [id number] [address] [place] [phone] May, Schizoaffective disorder, un specified F25.9 [facility] [address] [id number] [address] [place] [address] May, [facility] [address] [id number] [address] [place] [address] May, Paranoid schizophrenia F20.0 [facility] [address] [id number] [address] [place] [id number] May, Paranoid schizophrenia F20.0 ; Posttraumatic stress disorder F43.10 and Attention deficit hyperactivity disorder (ADHD), inattentive type, 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 [facility] [address] [id number] [address] [place] [address] Mar, [facility] [address] [id number] [address] [place] [address] Mar, Paranoid schizophrenia F20.0 ; Posttraumatic stress disorder F43.10 and Attention deficit hyperactivity disorder (ADHD), inattentive type, 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 [facility] [address] [id number] [address] [place] [address] Mar, Paranoid schizophrenia F20.0 [facility] [address] [id number] [address] [place] [phone] Mar, Paranoid schizophrenia F20.0 ; Attention deficit hyperactivity disorder (ADHD), inattentive type, 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 and Posttraumatic stress disorder F43.10 [facility] [address] [id number] [address] [place] [address] Mar, [facility] [address] [id number] [address] [place] [phone] Mar, Paranoid schizophrenia F20.0 ; Posttraumatic stress disorder F43.10 and Attention deficit hyperactivity disorder (ADHD), inattentive type, 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 [facility] [address] [id number] [address] [place] [address] February, [facility] [address] [id number] [address] [place] [address] February, [facility] [address] [id number] [address] [place] [address] February, [facility] [address] [id number] [address] [place] [phone] February, [facility] [address] [id number] [address] [place] [phone] Jan, Paranoid schizophrenia F20.0 [facility] [address] [id number] [address] [place] [id number] Jan, Dental examination Z01.20 [facility] [address] [id number] [address] [place] [address] [id number] Jan, Dental caries K02.9 [facility] [address] [id number] [address] [place] [address] [id number] Jan, Dental examination Z01.20 [facility] [address] [id number] [address] [place] [id number] Dec, Encounter for dental examina tion Z01.20 [facility] [address] [id number] [address] [place] [phone] Dec, Paranoid schizophrenia F20.0 [facility] [address] [id number] [address] [place] [id number] Dec, Dental examination Z01.20 [facility] [address] [id number] [address] [place] [phone] Dec, [facility] [address] [id number] [address] [place] [address] Dec, Paranoid schizophrenia F20.0 ; Posttraumatic stress disorder F43.10 and Attention deficit hyperactivity disorder (ADHD), inattentive type, 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 [facility] [address] [id number] [address] [place] [address] Nov, Schizoaffective disorder, un specified F25.9 [facility] [address] [id number] [address] [place] [address] Oct, Paranoid schizophrenia F20.0 [facility] [address] [id number] [address] [place] [phone] Oct, [facility] [address] [id number] [address] [place] [phone] Sep, Paranoid schizophrenia F20.0 ; Posttraumatic stress disorder F43.10 and Attention deficit hyperactivity disorder (ADHD), inattentive type, 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 [facility] [address] [id number] [address] [place] [id number] Sep, [facility] [address] [id number] [address] [place] [phone] Sep, Paranoid schizophrenia F20.0 ; Posttraumatic stress disorder F43.10 and Attention deficit hyperactivity disorder (ADHD), inattentive type, 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 [facility] [address] [id number] [address] [place] [id number] Aug, Paranoid schizophrenia F20.0 [facility] [address] [id number] [address] [place] [phone] Aug, [facility] [address] [id number] [address] [place] [address] Aug, Posttraumatic stress disorde r F43.10 ; Paranoid schizophrenia F20.0 and Attention deficit hyperactivity disorder (ADHD), inattentive type, 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 [facility] [address] [id number] [address] [place] [id number] Jul, Bipolar disorder, unspecifie d F31.9 [facility] [address] [id number] [address] [place] [address] Jul, [facility] [address] [id number] [address] [place] [address] Jun, [facility] [address] [id number] [address] [place] [phone] Jun, Schizoaffective disorder, ch ronic 295.72 ; Posttraumatic stress disorder 309.81 and Attention deficit disorder of childhood without mention of hyperactivity 314.00 [facility] [address] [id number] [address] [place] [phone] May, [facility] [address] [id number] [address] [place] [phone] May, [facility] [address] [id number] [address] [place] [id number] May, Schizoaffective disorder, ch ronic 295.72 ; Posttraumatic stress disorder 309.81 ; Attention deficit disorder of childhood without mention of hyperactivity 314.00 and Bipolar disorder, unspecified 296.80 [facility] [address] [id number] [address] [place] [phone] Apr, Schizoaffective disorder, ch ronic 295.72 [facility] [address] [id number] [address] [place] [phone] Apr, [facility] [address] [id number] [address] [place] [address] Apr, Schizoaffective disorder, ch ronic 295.72 ; Posttraumatic stress disorder 309.81 and Attention deficit disorder of childhood without mention of hyperactivity 314.00 [facility] [address] [id number] [address] [place] [address] Mar, Disorganized schizophrenia, 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 [facility] [address] [id number] [address] [place] [phone] Mar, [facility] [address] [id number] [address] [place] [phone] Mar, [facility] [address] [id number] [address] [place] [phone] Mar, [facility] [address] [id number] [address] [place] [address] Mar, [facility] [address] [id number] [address] [place] [phone] February, Schizoaffective disorder, ch ronic 295.72 [facility] [address] [id number] [address] [place] [phone] February, [facility] [address] [id number] [address] [place] [phone] February, Attention 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 ; Posttraumatic stress disorder 309.81 and Schizoaffective disorder, chronic 295.72 [facility] [address] [id number] [address] [place] [phone] Jan, [facility] [address] [id number] [address] [place] [phone] Jan, [facility] [address] [id number] [address] [place] [phone] Jan, [facility] [address] [id number] [address] [place] [phone] Dec, [facility] [address] [id number] [address] [place] [phone] Dec, [facility] [address] [id number] [address] [place] [phone] Dec, [facility] [address] [id number] [address] [place] [phone] Dec, [facility] [address] [id number] [address] [place] [phone] Dec, [facility] [address] [id number] [address] [place] [phone] Dec, [facility] [address] [id number] [address] [place] [phone] Dec, [facility] [address] [id number] [address] [place] [phone] Dec, [facility] [address] [id number] [address] [place] [address], [place] [address] Nov, 2014 [facility] [address] [id number] [address] [place] [address], [place] [address] Nov, 2014 [facility] [address] [id number] [address] [place] [address], [place] [address] Nov, 2014 [facility] [address] [id number] [address] [place] [address], [place] [address] Nov, 2014 [facility] [address] [id number] [address] [place] [address], [place] [address] Nov, 2014 [facility] [address] [id number] [address] [place] [address], [place] [address] Nov, 2014 [facility] [address] [id number] [address] [place] [address], [place] [address] Nov, [facility] [address] [id number] [address] [place] [address], [place] [address] Nov, [facility] [address] [id number] [address] [place] [address], [place] [address] Nov, [facility] [address] [id number] [address] [place] [address], [place] [address] Nov, [facility] [address] [id number] [address] [place] [phone] Oct, [facility] [address] [id number] [address] [place] [phone] Oct, [facility] [address] [id number] [address] [place] [address], [place] [address] Oct, [facility] [address] [id number] [address] [place] [phone] Oct, [facility] [address] [id number] [address] [place] [phone] Oct, [facility] [address] [id number] [address] [place] [phone] 13 Oct, 2014 [facility] [address] [id number] [address] [place] [address], [place] [address] Oct, [facility] [address] [id number] [address] [place] [address], [place] [address] 17 Sep, 2014 [facility] [address] [id number] [address] [place] [address], [place] [address] 17 Sep, 2014 [facility] [address] [id number] [address] [place] [address], [place] [address] 15 Sep, 2014 [facility] [address] [id number] [address] [place] [address], [place] [address] 15 Sep, 2014 [facility] [address] [id number] [address] [place] [address], [place] [address] Aug, [facility] [address] [id number] [address] [place] [address], [place] [address] Aug, [facility] [address] [id number] [address] [place] [address], [place] [address] Aug, [facility] [address] [id number] [address] [place] [address], [place] [address] Aug, [facility] [address] [id number] [address] [place] [address], [place] [address] Aug, [facility] [address] [id number] [address] [place] [address], [place] [address] Aug, [facility] [address] [id number] [address] [place] [address], [place] [address] Jul, [facility] [address] [id number] [address] [place] [address], [place] [address] Jul, [facility] [address] [id number] [address] [place] [address], [place] [address] Jul, [facility] [address] [id number] [address] [place] [address], [place] [address] Jul, [facility] [address] [id number] [address] [place] [address], [place] [address] 15 Jul, 2014 [facility] [address] [id number] [address] [place] [address], [place] [address] 15 Jul, 2014 [facility] [address] [id number] [address] [place] [address], [place] [address] 27 Jun, 2013 [facility] [address] [id number] [address] [place] [address], [place] [address] 27 Jun, 2013 [facility] [address] [id number] [address] [place] [address], [place] [address] 26 Jun, 2013 [facility] [address] [id number] [address] [place] [address], [place] [address] 26 Jun, 2013 [facility] [address] [id number] [address] [place] [address], [place] [address] 26 Jun, 2013 [facility] [address] [id number] [address] [place] [address], [place] [address] 26 Jun, 2013 [facility] [address] [id number] [address] [place] [address], [place] [address] 16 Jun, 2013 [facility] [address] [id number] [address] [place] [address], [place] [address] 16 Jun, 2013 [facility] [address] [id number] [address] [place] [address], [place] [address] 16 Jun, 2013 [facility] [address] [id number] [address] [place] [address], [place] [address] 16 Jun, 2013 [facility] [address] [id number] [address] [place] [address], [place] [address] 04 Jun, 2014 [facility] [address] [id number] [address] [place] [address], [place] [address] May, [facility] [address] [id number] [address] [place] [address], [place] [address] May, [facility] [address] [id number] [address] [place] [address], [place] [address] May, [facility] [address] [id number] [facility] [place] [address] May, [facility] [address] [id number] [address] [place] [address], [place] [address] May, [facility] [address] [id number] [address] [place] [address], [place] [address] May, [facility] [address] [id number] [address] [place] [address], [place] [address] May, [facility] [address] [id number] [address] [place] [address], [place] [address] May, [facility] [address] [id number] [address] [place] [address], [place] [address] May, [facility] [address] [id number] [address] [place] [address], [place] [address] May, [facility] [address] [id number] [address] [place] [address], [place] [address] Apr, [facility] [address] [id number] [address] [place] [address], [place] [address] Apr, [facility] [address] [id number] [address] [place] [address], [place] [address] Apr, [facility] [address] [id number] [address] [place] [address], [place] [address] Apr, [facility] [address] [id number] [address] [place] [address], [place] [address] Apr, [facility] [address] [id number] [address] [place] [address], [place] [address] Apr, [facility] [address] [id number] [address] [place] [address], [place] [address] Apr, [facility] [address] [id number] [address] [place] [address], [place] [address] Apr, [facility] [address] [id number] [address] [place] [address], [place] [address] 15 Apr, 2014 [facility] [address] [id number] [facility] [place] [address] 03 Apr, 2014 [facility] [address] [id number] [facility] [place] [address] Mar, [facility] [address] [id number] [address] [place] [address], [place] [address] Mar, [facility] [address] [id number] [address] [place] [address], [place] [address] Mar, [facility] [address] [id number] [address] [place] [address], [place] [address] 24 Mar, 2014 [facility] [address] [id number] [address] [place] [address], [place] [address] Mar, [facility] [address] [id number] [address] [place] [address], [place] [address] 18 Mar, 2014 [facility] [address] [id number] [address] [place] [address], [place] [address] 18 Mar, 2014 [facility] [address] [id number] [address] [place] [address], [place] [address] 16 Mar, 2014 [facility] [address] [id number] [address] [place] [address], [place] [address] 16 Mar, 2014 [facility] [address] [id number] [address] [place] [address], [place] [address] 13 Mar, 2014 [facility] [address] [id number] [address] [place] [address], [place] [address] 13 Mar, 2014 [facility] [address] [id number] [address] [place] [address], [place] [address] 11 Mar, 2014 [facility] [address] [id number] [address] [place] [address], [place] [address] 11 Mar, 2014 [facility] [address] [id number] [address] [place] [address], [place] [address] 10 Mar, 2014 [facility] [address] [id number] [address] [place] [address], [place] [address] Mar, [facility] [address] [id number] [address] [place] [address], [place] [address] Mar, [facility] [address] [id number] [address] [place] [address], [place] [address] Mar, [facility] [address] [id number] [address] [place] [address], [place] [address] Mar, [facility] [address] [id number] [address] [place] [address], [place] [address] Mar, [facility] [address] [id number] [address] [place] [address], [place] [address] Mar, [facility] [address] [id number] [address] [place] [address], [place] [address] February, [facility] [address] [id number] [address] [place] [address], [place] [address] February, [facility] [address] [id number] [address] [place] [address], [place] [address] February, [facility] [address] [id number] [address] [place] [address], [place] [address] February, [facility] [address] [id number] [address] [place] [address], [place] [address] February, [facility] [address] [id number] [address] [place] [address], [place] [address] February, [facility] [address] [id number] [address] [place] [address], [place] [address] February, [facility] [address] [id number] [address] [place] [address], [place] [address] February, [facility] [address] [id number] [address] [place] [address], [place] [address] February, [facility] [address] [id number] [address] [place] [address], [place] [address] February, [facility] [address] [id number] [address] [place] [address], [place] [address] February, [facility] [address] [id number] [address] [place] [address], [place] [address] February, [facility] [address] [id number] [address] [place] [address], [place] [address] February, [facility] [address] [id number] [address] [place] [address], [place] [address] February, [facility] [address] [id number] [address] [place] [address], [place] [address] February, [facility] [address] [id number] [address] [place] [address], [place] [address] February, [facility] [address] [id number] [address] [place] [address], [place] [address] February, [facility] [address] [id number] [address] [place] [address], [place] [address] February, [facility] [address] [id number] [address] [place] [address], [place] [address] February, [facility] [address] [id number] [address] [place] [address], [place] [address] February, [facility] [address] [id number] [address] [place] [address], [place] [address] February, [facility] [address] [id number] [address] [place] [address], [place] [address] Jan, [facility] [address] [id number] [address] [place] [address], [place] [address] Jan, [facility] [address] [id number] [address] [place] [address], [place] [address] Jan, [facility] [address] [id number] [address] [place] [address], [place] [address] Jan, [facility] [address] [id number] [facility] [place] [address] 18 Jan, 2014 [facility] [address] [id number] [address] [place] [address], [place] [address] 18 Jan, 2014 [facility] [address] [id number] [address] [place] [address], [place] [address] 10 Jan, 2014 [facility] [address] [id number] [address] [place] [address], [place] [address] 10 Jan, 2014 [facility] [address] [id number] [address] [place] [address], [place] [address] 21 Dec, 2013 [facility] [address] [id number] [address] [place] [address], [place] [address] 20 Dec, 2013 [facility] [address] [id number] [address] [place] [address], [place] [address] 20 Dec, 2013 [facility] [address] [id number] [address] [place] [address], [place] [address] 19 Dec, 2013 [facility] [address] [id number] [address] [place] [address], [place] [address] 19 Dec, 2013 [facility] [address] [id number] [address] [place] [address], [place] [address] 15 Dec, 2013 [facility] [address] [id number] [address] [place] [address], [place] [address] 15 Dec, 2013 [facility] [address] [id number] [address] [place] [address], [place] [address] 11 Dec, 2013 [facility] [address] [id number] [address] [place] [address], [place] [address] 10 Dec, 2013 [facility] [address] [id number] [address] [place] [address], [place] [address] 10 Dec, 2013 [facility] [address] [id number] [address] [place] [address], [place] [id number] 18 Nov, 2013 [facility] [address] [id number] [address] [place] [address], [place] [address] Nov, [facility] [address] [id number] [address] [place] [address], [place] [address] Nov, [facility] [address] [id number] [address] [place] [address], [place] [address] Nov, [facility] [address] [id number] [address] [place] [address], [place] [address] Nov, [facility] [address] [id number] [address] [place] [address], [place] [address] Oct, [facility] [address] [id number] [address] [place] [address], [place] [address] Oct, [facility] [address] [id number] [address] [place] [address], [place] [address] Oct, [facility] [address] [id number] [address] [place] [address], [place] [address] Sep, [facility] [address] [id number] [address] [place] [address], [place] [address] Sep, [facility] [address] [id number] [address] [place] [address], [place] [address] Sep, [facility] [address] [id number] [address] [place] [address], [place] [address] Sep, [facility] [address] [id number] [address] [place] [address], [place] [address] Aug, [facility] [address] [id number] [address] [place] [address] Aug, [facility] [address] [id number] [address] [place] [address], [place] [address] Jul, [facility] [address] [id number] [address] [place] [address], [place] [address] Jul, [facility] [address] [id number] [address] [place] [address], [place] [address] Jul, [facility] [address] [id number] [address] [place] [address], [place] [address] 09 Jul, 2013 [facility] [address] [id number] [address] [place] [address], [place] [address] Jul, [facility] [address] [id number] [address] [place] [address], [place] [address] 25 Jun, 2013 [facility] [address] [id number] [address] [place] [address], [place] [address] 25 Jun, 2013 [facility] [address] [id number] [address] [place] [address], [place] [address] 19 Jun, 2013 [facility] [address] [id number] [address] [place] [address], [place] [address] 18 Jun, 2013 [facility] [address] [id number] [address] [place] [address], [place] [address] 16 Jun, 2013 [facility] [address] [id number] [address] [place] [address], [place] [address] 12 Jun, 2013 [facility] [address] [id number] [address] [place] [address], [place] [address] 11 Jun, 2013 [facility] [address] [id number] [address] [place] [address], [place] [address] May, [facility] [address] [id number] [address] [place] [address], [place] [address] May, [facility] [address] [id number] [address] [place] [address], [place] [address] Apr, [facility] [address] [id number] [address] [place] [address], [place] [address] Apr, [facility] [address] [id number] [address] [place] [address], [place] [address] Apr, [facility] [address] [id number] [address] [place] [address], [place] [address] Mar, [facility] [address] [id number] [address] [place] [address], [place] [address] Mar, [facility] [address] [id number] [address] [place] [address], [place] [address] February, [facility] [address] [id number] [address] [place] [address], [place] [address] February, [facility] [address] [id number] [address] [place] [address], [place] [address] February, [facility] [address] [id number] [address] [place] [address], [place] [address] February, [facility] [address] [id number] [address] [place] [address], [place] [address] Jan, [facility] [address] [id number] [address] [place] [address], [place] [address] Jan, [facility] [address] [id number] [address] [place] [address], [place] [address] Jan, [facility] [address] [id number] [address] [place] [address], [place] [address] Dec, [facility] [address] [id number] [address] [place] [address], [place] [address] Dec, [facility] [address] [id number] [address] [place] [address], [place] [address] Dec, [facility] [address] [id number] [address] [place] [address], [place] [address] Dec, [facility] [address] [id number] [address] [place] [address], [place] [address] Nov, [facility] [address] [id number] [address] [place] [address], [place] [address] Nov, [facility] [address] [id number] [address] [place] [address], [place] [address] Oct, [facility] [address] [id number] [address] [place] [address], [place] [address] Oct, [facility] [address] [id number] [address] [place] [address], [place] [address] Oct, [facility] [address] [id number] [address] [place] [address], [place] [address] Oct, [facility] [address] [id number] [address] [place] [address], [place] [address] Aug, [facility] [address] [id number] [address] [place] [address], [place] [address] Aug, [facility] [address] [id number] [address] [place] [address], [place] [address] Jun, [facility] [address] [id number] [address] [place] [address], [place] [address] May, [facility] [address] [id number] [address] [place] [address], [place] [address] May, [facility] [address] [id number] [address] [place] [address], [place] [address] Apr, [facility] [address] [id number] [address] [place] [address], [place] [address] Apr, [facility] [address] [id number] [address] [place] [address], [place] [address] Apr, [facility] [address] [id number] [address] [place] [address], [place] [address] Mar, [facility] [address] [id number] [address] [place] [address], [place] [address] Mar, [facility] [address] [id number] [address] [place] [address], [place] [address] Mar, [facility] [address] [id number] [address] [place] [address], [place] [address] Mar, [facility] [address] [id number] [address] [place] [address], [place] [address] Mar, [facility] [address] [id number] [address] [place] [address], [place] [address] February, [facility] [address] [id number] [address] [place] [address], [place] [address] February, [facility] [address] [id number] [address] [place] [address], [place] [address] February, [facility] [address] [id number] [address] [place] [address], [place] [address] February, [facility] [address] [id number] [address] [place] [address], [place] [address] February, [facility] [address] [id number] [address] [place] [address], [place] [address] February, [facility] [address] [id number] [address] [place] [address], [place] [address] February, [facility] [address] [id number] [address] [place] [address], [place] [address] Jan, [facility] [address] [id number] [address] [place] [address], [place] [address] 18 Jan, 2012 [facility] [address] [id number] [address] [place] [address], [place] [address] 17 Jan, 2012 [facility] [address] [id number] [address] [place] [address], [place] [address] 13 Jan, 2012 [facility] [address] [id number] [address] [place] [address], [place] [address] 10 Jan, 2012 [facility] [address] [id number] [address] [place] [address], [place] [address] 04 Jan, 2012 [facility] [address] [id number] [address] [place] [address], [place] [address] 30 Dec, 2011 [facility] [address] [id number] [address] [place] [address], [place] [address] 24 Dec, 2011 [facility] [address] [id number] [address] [place] [address], [place] [address] 20 Dec, 2011 [facility] [address] [id number] [address] [place] [address], [place] [address] Dec, [facility] [address] [id number] [address] [place] [address], [place] [address] Dec, [facility] [address] [id number] [address] [place] [address], [place] [address] Nov, [facility] [address] [id number] [address] [place] [address], [place] [address] Nov, [facility] [address] [id number] [address] [place] [address], [place] [address] Nov, [facility] [address] [id number] [address] [place] [address], [place] [address] Nov, [facility] [address] [id number] [address] [place] [address], [place] [address] Nov, [facility] [address] [id number] [address] [place] [address], [place] [address] Nov, [facility] [address] [id number] [address] [place] [address], [place] [address] Oct, [facility] [address] [id number] [address] [place] [address], [place] [address] Oct, [facility] [address] [id number] [address] [place] [address], [place] [address] Oct, [facility] [address] [id number] [address] [place] [address], [place] [address] Oct, [facility] [address] [id number] [address] [place] [address], [place] [address] Oct, [facility] [address] [id number] [address] [place] [address], [place] [address] Sep, [facility] [address] [id number] [address] [place] [address], [place] [address] Sep, [facility] [address] [id number] [address] [place] [address], [place] [address] Sep, [facility] [address] [id number] [address] [place] [address], [place] [address] 14 Sep, 2011 [facility] [address] [id number] [address] [place] [address], [place] [address] 14 Sep, 2011 [facility] [address] [id number] [address] [place] [address], [place] [address] 13 Sep, 2011 [facility] [address] [id number] [address] [place] [address], [place] [address] 12 Sep, 2011 [facility] [address] [id number] [address] [place] [address], [place] [address] 09 Sep, 2011 [facility] [address] [id number] [address] [place] [address], [place] [address] 05 Sep, 2011 [facility] [address] [id number] [address] [place] [address], [place] [address] 30 Aug, 2011 [facility] [address] [id number] [address] [place] [address], [place] [address] 30 Aug, 2011 [facility] [address] [id number] [address] [place] [address], [place] [address] 25 Aug, 2011 [facility] [address] [id number] [address] [place] [address], [place] [address] 23 Aug, 2011 [facility] [address] [id number] [address] [place] [address], [place] [address] 23 Aug, 2011 [facility] [address] [id number] [address] [place] [address], [place] [address] 22 Aug, 2011 [facility] [address] [id number] [address] [place] [address], [place] [address] 16 Aug, 2011 [facility] [address] [id number] [address] [place] [address], [place] [address] 16 Aug, 2011 [facility] [address] [id number] [address] [place] [address], [place] [address] 10 Aug, 2011 [facility] [address] [id number] [address] [place] [address], [place] [address] Aug, [facility] [address] [id number] [address] [place] [address], [place] [address] Aug, [facility] [address] [id number] [address] [place] [address], [place] [address] Aug, [facility] [address] [id number] [address] [place] [address], [place] [address] Jul, [facility] [address] [id number] [address] [place] [address], [place] [address] Jul, [facility] [address] [id number] [address] [place] [address], [place] [address] Jul, [facility] [address] [id number] [address] [place] [address], [place] [address] Jul, [facility] [address] [id number] [address] [place] [address], [place] [address] Jul, [facility] [address] [id number] [address] [place] [address] Jul, [facility] [address] [id number] [address] [place] [address], [place] [address] Jul, [facility] [address] [id number] [address] [place] [address] Jul, [facility] [address] [id number] [address] [place] [address] Jul, [facility] [address] [id number] [address] [place] [address] Jul, [facility] [address] [id number] [address] [place] [address] Nov, [facility] [address] [id number] [address] [place] [address] Aug, [facility] [address] [id number] [address] [place] [address] Aug, [facility] [address] [id number] [address] [place] [address] Aug, [facility] [address] [facility] [id number] [address] [place] [address] Aug, [facility] [address] [facility] [id number] [address] [place] [address] Jul, IMMUNIZATIONS No Known Immunizations SOCIAL HISTORY [...]
--- OUTSIDE RECORDS SUMMARY | 2020-04-04 02:29 | XMS REPORT ---
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 Active 99540682 Problem Generalized anxiety disorder 300.02 A ctive 04973566 Problem Obsessive-compulsive disorders 300.3 Active 658523652 Problem Catatonic schizophrenia, 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 543337537 Problem Disorganized schizophrenia, 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 09537851 Problem Paranoid schizophrenia F20.0 Active 14985376 Problem Borderline personality disorder F60.3 Active 06349391 Problem Paranoid schizophrenia, unspecified condition 295.30 Active 12823211 Problem Schizoaffective disorder, depressive type F25.1 Active 02249477 Problem Bipolar disorder, unspecified 296.80 Active 04344952 Problem Schizoaffective disorder, unspecified F25.9 Active 06763782 Problem Attention deficit hyperactivity disorder (ADHD), inattentive type, 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 17932585 Problem Posttraumatic stress disorder F43.10 Active 04646642 Problem High risk medication use Z79.899 Activ e [id number] ALLERGIES No Information ENCOUNTERS Encounter Location Date Diagnosis [facility] [place] [address] [facility] [id number] [address] [place] [phone] Mar, [facility] [place] [address] [facility] [id number] [address] [place] [phone] Jan, Paranoid schizophrenia F20.0 ; Posttraumatic stress disorder F43.10 ; Attention deficit hyperactivity disorder (ADHD), inattentive type, 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 and Borderline personality disorder F60.3 [facility] [place] [address] [facility] [id number] [address] [place] [id number] Dec, Paranoid schizophrenia F20.0 ; Posttraumatic stress disorder F43.10 ; Attention deficit hyperactivity disorder (ADHD), inattentive type, 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 and Borderline personality disorder F60.3 [facility] [place] [address] [facility] [id number] [address] [place] [id number] Dec, Paranoid schizophrenia F20.0 ; Posttraumatic stress disorder F43.10 ; Attention deficit hyperactivity disorder (ADHD), inattentive type, 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 and Borderline personality disorder F60.3 [facility] [place] [address] [place] [id number] [place] [phone] Oct, Paranoid schizophrenia F20.0 ; Posttraumatic stress disorder F43.10 ; Attention deficit hyperactivity disorder (ADHD), inattentive type, 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 and Borderline personality disorder F60.3 [facility] [place] [address] [place] [id number] [address] [place] [id number] Oct, Paranoid schizophrenia F20.0 ; Posttraumatic stress disorder F43.10 ; Attention deficit hyperactivity disorder (ADHD), inattentive type, 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 and Borderline personality disorder F60.3 [facility] [place] [id number] [place] [id number] Aug, [facility] [place] [address] [place] [id number] [place] [id number] Aug, Paranoid schizophrenia F20.0 ; Posttraumatic stress disorder F43.10 ; Attention deficit hyperactivity disorder (ADHD), inattentive type, 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 and Borderline personality disorder F60.3 [facility] [address] [facility] [id number] [address] [place] [id number] Jul, Dry skin dermatitis L85.3 [facility] [place] [address] [facility] [id number] [address] [place] [id number] Jul, [facility] [place] [address] [place] [id number] [address] [place] [phone] Jul, Paranoid schizophrenia F20.0 [facility] [place] [address] [place] [id number] [address] [place] [id number] May, Paranoid schizophrenia F20.0 ; Posttraumatic stress disorder F43.10 ; Attention deficit hyperactivity disorder (ADHD), inattentive type, 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 and Borderline personality disorder F60.3 [facility] [place] [address] [id number] [address] [place] [phone] May, [facility] [place] [address] [id number] [address] [place] [phone] May, Paranoid schizophrenia F20.0 [facility] [place] [address] [id number] [address] [place] [id number] May, Paranoid schizophrenia F20.0 ; Posttraumatic stress disorder F43.10 ; Attention deficit hyperactivity disorder (ADHD), inattentive type, 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 and Borderline personality disorder F60.3 [facility] [place] [address] [id number] [address] [place] [id number] Apr, [facility] [place] [address] [id number] [address] [place] [phone] Apr, Paranoid schizophrenia F20.0 ; Posttraumatic stress disorder F43.10 ; Attention deficit hyperactivity disorder (ADHD), inattentive type, 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 and Borderline personality disorder F60.3 [facility] [place] [address] [id number] [address] [place] [phone] Apr, [facility] [place] [address] [id number] [address] [place] [id number] Apr, Schizoaffective disorder, de pressive type F25.1 and Borderline personality disorder F60.3 [facility] [place] [address] [id number] [address] [place] [id number] Apr, Paranoid schizophrenia F20.0 ; Posttraumatic stress disorder F43.10 ; Attention deficit hyperactivity disorder (ADHD), inattentive type, 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 and Borderline personality disorder F60.3 [facility] [place] [address] [id number] [address] [place] [phone] Apr, [facility] [place] [address] [id number] [address] [place] [phone] Apr, Paranoid schizophrenia F20.0 ; Posttraumatic stress disorder F43.10 ; Attention deficit hyperactivity disorder (ADHD), inattentive type, 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 and Borderline personality disorder F60.3 [facility] [place] [address] [id number] [address] [place] [phone] Apr, [facility] [place] [address] [id number] [address] [place] [id number] Mar, Paranoid schizophrenia F20.0 [facility] [place] [address] [id number] [address] [place] [phone] Mar, [facility] [place] [address] [facility] [id number] [address] [place] [id number] Mar, Paranoid schizophrenia F20.0 ; Posttraumatic stress disorder F43.10 ; Attention deficit hyperactivity disorder (ADHD), inattentive type, 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 and Borderline personality disorder F60.3 [facility] [place] [address] [facility] [id number] [address] [place] [id number] February, Paranoid schizophrenia F20.0 [facility] [place] [address] [id number] [address] [place] [phone] February, Paranoid schizophrenia F20.0 ; Posttraumatic stress disorder F43.10 ; Attention deficit hyperactivity disorder (ADHD), inattentive type, 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 and Borderline personality disorder F60.3 [facility] [place] [address] [id number] [address] [place] [id number] February, Paranoid schizophrenia F20.0 ; Posttraumatic stress disorder F43.10 ; Attention deficit hyperactivity disorder (ADHD), inattentive type, 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 and Borderline personality disorder F60.3 [facility] [place] [address] [id number] [address] [place] [id number] February, [facility] [place] [address] [id number] [address] [place] [phone] February, Paranoid schizophrenia F20.0 [facility] [place] [address] [facility] [id number] [address] [place] [id number] February, Paranoid schizophrenia F20.0 [facility] [place] [address] [facility] [id number] [address] [place] [id number] February, Paranoid schizophrenia F20.0 ; Posttraumatic stress disorder F43.10 ; Attention deficit hyperactivity disorder (ADHD), inattentive type, 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 and Borderline personality disorder F60.3 [facility] [place] [address] [facility] [id number] [address] [place] [id number] Jan, Paranoid schizophrenia F20.0 ; Posttraumatic stress disorder F43.10 ; Attention deficit hyperactivity disorder (ADHD), inattentive type, 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 and Borderline personality disorder F60.3 [facility] [place] [address] [facility] [id number] [address] [place] [phone] Jan, Paranoid schizophrenia F20.0 [facility] [place] [address] [facility] [id number] [address] [place] [id number] Jan, Paranoid schizophrenia F20.0 [facility] [place] [address] [id number] [address] [place] [id number] Jan, Paranoid schizophrenia F20.0 ; Posttraumatic stress disorder F43.10 ; Attention deficit hyperactivity disorder (ADHD), inattentive type, 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 and Borderline personality disorder F60.3 [facility] [place] [address] [facility] [id number] [address] [place] [phone] Dec, [facility] [place] [address] [facility] [id number] [address] [place] [phone] Nov, Paranoid schizophrenia F20.0 ; Posttraumatic stress disorder F43.10 ; Attention deficit hyperactivity disorder (ADHD), inattentive type, 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 and Borderline personality disorder F60.3 [facility] [place] [address] [facility] [id number] [address] [place] [phone] Nov, [facility] [place] [address] [facility] [id number] [address] [place] [id number] Oct, Paranoid schizophrenia F20.0 [facility] [place] [address] [id number] [address] [place] [id number] Oct, Paranoid schizophrenia F20.0 ; Posttraumatic stress disorder F43.10 ; Attention deficit hyperactivity disorder (ADHD), inattentive type, 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 ; Borderline personality disorder F60.3 and Other rn long term care (current) drug therapy Z79.899 [facility] [place] [address] [id number] [address] [place] [id number] Oct, [facility] [place] [address] [id number] [address] [place] [phone] Oct, [facility] [place] [address] [id number] [address] [place] [address], [place] [address] Sep, [facility] [place] [address] [id number] [address] [place] [id number] Sep, Paranoid schizophrenia F20.0 ; Posttraumatic stress disorder F43.10 ; Attention deficit hyperactivity disorder (ADHD), inattentive type, 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 and Borderline personality disorder F60.3 [facility] [place] [address] [id number] [address] [place] [phone] Sep, Paranoid schizophrenia F20.0 [facility] [place] [address] [id number] [address] [place] [id number] Aug, Paranoid schizophrenia F20.0 ; Posttraumatic stress disorder F43.10 ; Attention deficit hyperactivity disorder (ADHD), inattentive type, 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 and Borderline personality disorder F60.3 [facility] [place] [address] [id number] [address] [place] [id number] Aug, Paranoid schizophrenia F20.0 ; Posttraumatic stress disorder F43.10 ; Attention deficit hyperactivity disorder (ADHD), inattentive type, 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 and Borderline personality disorder F60.3 [facility] [place] [address] [id number] [address] [place] [id number] 09 Aug, 2017 [facility] [place] [address] [id number] [address] [place] [id number] Jul, Paranoid schizophrenia F20.0 ; Posttraumatic stress disorder F43.10 ; Attention deficit hyperactivity disorder (ADHD), inattentive type, 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 and Borderline personality disorder F60.3 [facility] [place] [address] [facility] [id number] [address] [place] [id number] Jul, Paranoid schizophrenia F20.0 [facility] [place] [address] [id number] [address] [place] [id number] Jul, Paranoid schizophrenia F20.0 ; Posttraumatic stress disorder F43.10 ; Attention deficit hyperactivity disorder (ADHD), inattentive type, 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 and Borderline personality disorder F60.3 [facility] [place] [address] [id number] [address] [place] [phone] Jun, Paranoid schizophrenia F20.0 ; Posttraumatic stress disorder F43.10 ; Attention deficit hyperactivity disorder (ADHD), inattentive type, 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 and Borderline personality disorder F60.3 [facility] [place] [address] [facility] [id number] [address] [place] [phone] May, Other rn long term care (current) dr gabriel parra Z79.899 [facility] [place] [address] [facility] [id number] [address] [place] [phone] May, [facility] [place] [address] [facility] [id number] [address] [place] [id number] May, [facility] [place] [address] [facility] [id number] [address] [place] [phone] May, Attention deficit hyperactiv ity disorder (ADHD), inattentive type, mild F90.0 [facility] [place] [address] [id number] [address] [place] [phone] May, [facility] [place] [address] [facility] [id number] [address] [place] [id number] May, Attention deficit hyperactiv ity disorder (ADHD), inattentive type, mild F90.0 [facility] [place] [address] [facility] [id number] [address] [place] [phone] May, Paranoid schizophrenia F20.0 ; Posttraumatic stress disorder F43.10 ; Attention deficit hyperactivity disorder (ADHD), inattentive type, 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 and Other mcfp (current) drug therapy Z79.899 [facility] [place] [address] [id number] [address] [place] [phone] Apr, Paranoid schizophrenia F20.0 [facility] [place] [address] [id number] [address] [place] [id number] Apr, Paranoid schizophrenia F20.0 ; Posttraumatic stress disorder F43.10 and Attention deficit hyperactivity disorder (ADHD), inattentive type, 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 [facility] [place] [address] [id number] [address] [place] [phone] February, [facility] [place] [address] [id number] [address] [place] [id number] February, Paranoid schizophrenia F20.0 ; Posttraumatic stress disorder F43.10 and Attention deficit hyperactivity disorder (ADHD), inattentive type, 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 [facility] [place] [address] [id number] [address] [place] [id number] February, Paranoid schizophrenia F20.0 ; Posttraumatic stress disorder F43.10 and Attention deficit hyperactivity disorder (ADHD), inattentive type, 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 [facility] [place] [address] [id number] [address] [place] [id number] Jan, Paranoid schizophrenia F20.0 ; Posttraumatic stress disorder F43.10 and Attention deficit hyperactivity disorder (ADHD), inattentive type, 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 [facility] [address] [id number] [address] [place] [id number] Dec, Dental examination Z01.20 [facility] [address] [id number] [address] [place] [id number] Nov, Dental examination Z01.20 [facility] [address] [id number] [address] [place] [id number] 23 Feb, 2017 Dental examination Z01.20 [facility] [address] [id number] [address] [place] [address] [id number] 14 Nov, 2016 Dental caries K02.9 [facility] [place] [address] [facility] [id number] [address] [place] [id number] 13 Nov, 2016 High risk medication use Z79 .899 [facility] [place] [address] [facility] [id number] [address] [place] [id number] 01 Nov, 2016 Paranoid schizophrenia F20.0 ; Posttraumatic stress disorder F43.10 ; Attention deficit hyperactivity disorder (ADHD), inattentive type, 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 and Borderline personality disorder in adult F60.3 [facility] [address] [id number] [address] [place] [id number] Oct, Dental caries K02.9 [facility] [place] [address] [facility] [id number] [address] [place] [id number] Sep, Paranoid schizophrenia F20.0 ; Posttraumatic stress disorder F43.10 and Attention deficit hyperactivity disorder (ADHD), inattentive type, 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 [facility] [place] [address] [facility] [id number] [address] [place] [id number] Aug, Paranoid schizophrenia F20.0 ; Posttraumatic stress disorder F43.10 and Attention deficit hyperactivity disorder (ADHD), inattentive type, 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 [facility] [address] [facility] [id number] [address] [place] [id number] Aug, Strep throat J02.0 and Cough R05 [facility] [place] [address] [facility] [id number] [address] [place] [id number] Aug, [facility] [place] [address] [facility] [id number] [address] [place] [phone] Jul, Paranoid schizophrenia F20.0 ; Posttraumatic stress disorder F43.10 and Attention deficit hyperactivity disorder (ADHD), inattentive type, 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 [facility] [place] [address] [facility] [id number] [address] [place] [id number] Jul, [facility] [place] [address] [id number] [address] [place] [phone] Jun, Paranoid schizophrenia F20.0 ; Posttraumatic stress disorder F43.10 and Attention deficit hyperactivity disorder (ADHD), inattentive type, 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 [facility] [address] [id number] [address] [place] [address] [id number] Jun, Dental examination Z01.20 [facility] [place] [address] [id number] [address] [place] [phone] Jun, [facility] [place] [address] [id number] [address] [place] [id number] May, Paranoid schizophrenia F20.0 [facility] [place] [address] [id number] [address] [place] [id number] May, Paranoid schizophrenia F20.0 ; Posttraumatic stress disorder F43.10 and Attention deficit hyperactivity disorder (ADHD), inattentive type, 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 [facility] [place] [address] [id number] [address] [place] [phone] May, [facility] [place] [address] [id number] [address] [place] [phone] May, Paranoid schizophrenia F20.0 [facility], [place] [address] [id number] [address] [place] [id number] May, [facility], [place], [facility] [address] [id number] [address] [place] [id number] May, Paranoid schizophrenia F20.0 [facility], [place] [address] [id number] [address] [place] [id number] May, Schizoaffective disorder, un specified F25.9 [facility], [place] [address] [address] [id number] [address] [place] [address] May, Schizoaffective disorder, un specified F25.9 [facility] [place] [address] [id number] [address] [place] [id number] May, [facility] [place] [address] [id number] [address] [address] May, Paranoid schizophrenia F20.0 [facility] [place] [address] [id number] [address] [place] [address], [place] [address] May, Paranoid schizophrenia F20.0 ; Posttraumatic stress disorder F43.10 and Attention deficit hyperactivity disorder (ADHD), inattentive type, 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 [facility] [place] [address] [id number] [address] [place] [id number] Mar, [facility] [place] [address] [id number] [address] [place] [address], [place] [address] Mar, Paranoid schizophrenia F20.0 ; Posttraumatic stress disorder F43.10 and Attention deficit hyperactivity disorder (ADHD), inattentive type, 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 [facility] [place] [address] [id number] [address] [place] [address], [place] [address] Mar, Paranoid schizophrenia F20.0 [facility] [place] [address] [id number] [address] [place] [address], [place] [address] Mar, Paranoid schizophrenia F20.0 ; Attention deficit hyperactivity disorder (ADHD), inattentive type, 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 and Posttraumatic stress disorder F43.10 [facility] [place] [address] [id number] [address] [place] [address], [place] [address] Mar, [facility] [place] [address] [id number] [address] [place] [address] Mar, Paranoid schizophrenia F20.0 ; Posttraumatic stress disorder F43.10 and Attention deficit hyperactivity disorder (ADHD), inattentive type, 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 [facility] [place] [address] [id number] [address] [place] [address], [place] [address] February, [facility] [place] [address] [id number] [address] [place] [address], [place] [address] February, [facility] [place] [address] [id number] [address] [place] [phone] February, [facility] [place] [address] [id number] [address] [place] [id number] February, [facility] [place] [address] [id number] [address] [place] [id number] Jan, Paranoid schizophrenia F20.0 [facility] [address] [id number] [address] [place] [id number] Jan, Dental examination Z01.20 [facility] [address] [id number] [address] [place] [id number] Jan, Dental caries K02.9 [facility] [address] [id number] [address] [place] [id number] Jan, Dental examination Z01.20 [facility] [address] [id number] [address] [place] [address] [id number] Dec, Encounter for dental examina tion Z01.20 [facility] [place] [address] [id number] [address] [place] [id number] Dec, Paranoid schizophrenia F20.0 [facility] [address] [id number] [address] [place] [address] [id number] Dec, Dental examination Z01.20 [facility] [place] [address] [id number] [address] [place] [id number] Dec, [facility] [place] [address] [id number] [address] [place] [id number] Dec, Paranoid schizophrenia F20.0 ; Posttraumatic stress disorder F43.10 and Attention deficit hyperactivity disorder (ADHD), inattentive type, 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 [facility] [place] [address] [id number] [address] [place] [id number] Nov, Schizoaffective disorder, un specified F25.9 [facility] [place] [address] [id number] [address] [place] [id number] Oct, Paranoid schizophrenia F20.0 [facility] [place] [address] [id number] [address] [place] [id number] Oct, [facility] [place] [address] [facility] [id number] [address] [place] [id number] Sep, Paranoid schizophrenia F20.0 ; Posttraumatic stress disorder F43.10 and Attention deficit hyperactivity disorder (ADHD), inattentive type, 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 [facility] [place] [address] [id number] [address] [place] [id number] Sep, [facility] [place] [address] [id number] [address] [place] [id number] Sep, Paranoid schizophrenia F20.0 ; Posttraumatic stress disorder F43.10 and Attention deficit hyperactivity disorder (ADHD), inattentive type, 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 [facility] [place] [address] [id number] [address] [place] [id number] Aug, Paranoid schizophrenia F20.0 [facility] [place] [address] [facility] [id number] [address] [place] [id number] Aug, [facility] [place] [address] [facility] [id number] [address] [place] [id number] Aug, Posttraumatic stress disorde r F43.10 ; Paranoid schizophrenia F20.0 and Attention deficit hyperactivity disorder (ADHD), inattentive type, 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 [facility] [place] [address] [facility] [id number] [address] [place] [id number] Jul, Bipolar disorder, unspecifie d F31.9 [facility] [place] [address] [facility] [id number] [address] [place] [id number] Jul, [facility] [place] [address] [facility] [id number] [address] [place] [id number] Jun, [facility] [place] [address] [facility] [id number] [address] [place] [id number] Jun, Schizoaffective disorder, ch ronic 295.72 ; Posttraumatic stress disorder 309.81 and Attention deficit disorder of childhood without mention of hyperactivity 314.00 [facility] [place] [address] [facility] [id number] [address] [place] [id number] May, [facility] [place] [address] [id number] [address] [place] [id number] May, [facility] [place] [address] [id number] [address] [place] [id number] May, Schizoaffective disorder, ch ronic 295.72 ; Posttraumatic stress disorder 309.81 ; Attention deficit disorder of childhood without mention of hyperactivity 314.00 and Bipolar disorder, unspecified 296.80 [facility] [place] [address] [id number] [address] [place] [id number] Apr, Schizoaffective disorder, ch ronic 295.72 [facility] [place] [address] [id number] [address] [place] [id number] Apr, [facility] [place] [address] [id number] [address] [place] [id number] Apr, Schizoaffective disorder, ch ronic 295.72 ; Posttraumatic stress disorder 309.81 and Attention deficit disorder of childhood without mention of hyperactivity 314.00 [facility] [place] [address] [id number] [address] [place] [id number] Mar, Disorganized schizophrenia, 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 [facility] [place] [address] [id number] [address] [place] [id number] Mar, [facility] [place] [address] [id number] [address] [place] [id number] Mar, [facility] [place] [address] [facility] [id number] [address] [place] [id number] Mar, [facility] [place] [address] [id number] [address] [place] [id number] Mar, [facility] [place] [address] [facility] [id number] [address] [place] [id number] February, Schizoaffective disorder, ch ronic 295.72 [facility] [place] [address] [facility] [id number] [address] [place] [phone] February, [facility] [address] [id number] [address] [place] [id number] February, Attention 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 ; Posttraumatic stress disorder 309.81 and Schizoaffective disorder, chronic 295.72 [facility] [address] [id number] [address] [place] [id number] Jan, [facility] [address] [id number] [address] [place] [id number] Jan, [facility] [address] [id number] [address] [place] [id number] Jan, [facility] [address] [id number] [address] [place] [id number] Dec, [facility] [address] [id number] [address] [place] [id number] Dec, [facility] [address] [id number] [address] [place] [id number] Dec, [facility] [address] [id number] [address] [place] [id number] Dec, [facility] [address] [id number] [address] [place] [id number] Dec, [facility] [address] [id number] [address] [place] [id number] Dec, [facility] [address] [id number] [address] [place] [id number] Dec, [facility] [address] [id number] [address] [place] [id number] Dec, [facility] [address] [id number] [address] [place] [id number] Nov, [facility] [address] [id number] [address] [place] [id number] Nov, [facility] [address] [id number] [address] [place] [address] [place] [address] Nov, 2014 [facility] [address] [id number] [address] [place] [address], [place] [address] Nov, 2014 [facility] [address] [id number] [address] [place] [address], [place] [address] Nov, 2014 [facility] [address] [id number] [address] [place] [address], [place] [address] Nov, 2014 [facility] [address] [id number] [address] [place] [address], [place] [address] Nov, 2014 [facility] [address] [id number] [address] [place] [address], [place] [address] Nov, 2014 [facility] [address] [id number] [address] [place] [address], [place] [address] Nov, [facility] [address] [id number] [address] [place] [address], [place] [address] Nov, [facility] [address] [id number] [address] [place] [address], [place] [address] Oct, [facility] [address] [id number] [address] [place] [address], [place] [address] Oct, [facility] [address] [id number] [address] [place] [phone] Oct, [facility] [address] [id number] [address] [place] [address], [place] [address] Oct, [facility] [address] [id number] [address] [place] [phone] Oct, [facility] [address] [id number] [address] [place] [address], [place] [address] Oct, [facility] [address] [id number] [address] [place] [address], [place] [address] Oct, [facility] [address] [id number] [address] [place] [address], [place] [address] Sep, [facility] [address] [id number] [address] [place] [address], [place] [address] 17 Sep, 2014 [facility] [address] [id number] [address] [place] [address], [place] [address] 15 Sep, 2014 [facility] [address] [id number] [address] [place] [address], [place] [address] 15 Sep, 2014 [facility] [address] [id number] [address] [place] [address], [place] [address] Aug, [facility] [address] [id number] [address] [place] [address], [place] [address] Aug, [facility] [address] [id number] [address] [place] [address], [place] [address] Aug, [facility] [address] [id number] [address] [place] [address], [place] [address] Aug, [facility] [address] [id number] [address] [place] [address], [place] [address] Aug, [facility] [address] [id number] [address] [place] [address], [place] [address] Aug, [facility] [address] [id number] [address] [place] [address], [place] [address] Jul, [facility] [address] [id number] [address] [place] [address], [place] [address] 29 Jul, 2014 [facility] [address] [id number] [address] [place] [address], [place] [address] 24 Jul, 2014 [facility] [address] [id number] [address] [place] [address], [place] [address] 24 Jul, 2014 [facility] [address] [id number] [address] [place] [address], [place] [address] 15 Jul, 2014 [facility] [address] [id number] [address] [place] [address], [place] [address] 15 Jul, 2014 [facility] [address] [id number] [address] [place] [address] [place] [address] 27 Sep, 2013 [facility] [address] [id number] [facility] [place] [address] 27 Sep, 2013 [facility] [address] [id number] [facility] [place] [address] 26 Sep, 2013 [facility] [address] [id number] [address] [place] [address], [place] [id number] 26 Sep, 2013 [facility] [address] [id number] [address] [place] [address], [place] [address] 26 Jun, 2013 [facility] [address] [id number] [address] [place] [address], [place] [address] 26 Jun, 2013 [facility] [address] [id number] [address] [place] [address], [place] [address] 16 Jun, 2013 [facility] [address] [id number] [address] [place] [address], [place] [address] 16 Jun, 2013 [facility] [address] [id number] [address] [place] [address], [place] [address] 16 Jun, 2013 [facility] [address] [id number] [address] [place] [address], [place] [address] 16 Jun, 2013 [facility] [address] [id number] [address] [place] [address], [place] [address] 04 Jun, 2013 [facility] [address] [id number] [address] [place] [address], [place] [address] May, 2013 [facility] [address] [id number] [address] [place] [address], [place] [address] May, [facility] [address] [id number] [address] [place] [address], [place] [address] May, 2013 [facility] [address] [id number] [address] [place] [address], [place] [address] May, 2013 [facility] [address] [id number] [address] [place] [address], [place] [address] May, 2013 [facility] [address] [id number] [facility] [place] [address] May, [facility] [address] [id number] [facility] [place] [address] May, [facility] [address] [id number] [address] [place] [address], [place] [address] May, [facility] [address] [id number] [address] [place] [address], [place] [address] May, [facility] [address] [id number] [address] [place] [address], [place] [address] May, [facility] [address] [id number] [address] [place] [address], [place] [address] Apr, [facility] [address] [id number] [address] [place] [address], [place] [address] Apr, [facility] [address] [id number] [address] [place] [address], [place] [address] Apr, [facility] [address] [id number] [address] [place] [address], [place] [address] Apr, [facility] [address] [id number] [address] [place] [address], [place] [address] Apr, [facility] [address] [id number] [address] [place] [address], [place] [address] Apr, [facility] [address] [id number] [address] [place] [address], [place] [address] Apr, [facility] [address] [id number] [address] [place] [address], [place] [address] Apr, [facility] [address] [id number] [address] [place] [address], [place] [address] Apr, [facility] [address] [id number] [address] [place] [address], [place] [address] Apr, [facility] [address] [id number] [address] [place] [address], [place] [address] Mar, [facility] [address] [id number] [facility] [place] [address] Mar, [facility] [address] [id number] [facility] [place] [address] 25 Mar, 2014 [facility] [address] [id number] [facility] [place] [address] 24 Mar, 2014 [facility] [address] [id number] [address] [place] [address], [place] [address] 20 Mar, 2014 [facility] [address] [id number] [address] [place] [address], [place] [address] 18 Mar, 2014 [facility] [address] [id number] [address] [place] [address], [place] [address] 18 Mar, 2014 [facility] [address] [id number] [address] [place] [address], [place] [id number] 16 Mar, 2014 [facility] [address] [id number] [address] [place] [address], [place] [id number] 16 Mar, 2014 [facility] [address] [id number] [address] [place] [address], [place] [id number] 13 Mar, 2014 [facility] [address] [id number] [address] [place] [address], [place] [address] 13 Mar, 2014 [facility] [address] [id number] [address] [place] [address], [place] [address] 11 Mar, 2014 [facility] [address] [id number] [address] [place] [address], [place] [id number] 11 Mar, 2014 [facility] [address] [id number] [address] [place] [address], [place] [address] 10 Mar, 2014 [facility] [address] [id number] [address] [place] [address], [place] [id number] 09 Mar, 2014 [facility] [address] [id number] [address] [place] [address], [place] [id number] 09 Mar, 2014 [facility] [address] [id number] [address] [place] [address] Mar, [facility] [address] [id number] [address] [place] [address], [place] [address] Mar, [facility] [address] [id number] [address] [place] [address], [place] [address] Mar, [facility] [address] [id number] [address] [place] [address], [place] [id number] Mar, [facility] [address] [id number] [address] [place] [address], [place] [address] February, [facility] [address] [id number] [address] [place] [address], [place] [address] February, [facility] [address] [id number] [address] [place] [address], [place] [id number] February, [facility] [address] [id number] [address] [place] [address], [place] [id number] February, [facility] [address] [id number] [address] [place] [address], [place] [address] February, [facility] [address] [id number] [address] [place] [address], [place] [address] February, [facility] [address] [id number] [address] [place] [address], [place] [id number] February, [facility] [address] [id number] [address] [place] [address], [place] [address] February, [facility] [address] [id number] [address] [place] [address], [place] [address] February, [facility] [address] [id number] [address] [place] [address], [place] [address] February, [facility] [address] [id number] [address] [place] [address], [place] [id number] February, [facility] [address] [id number] [address] [place] [address], [place] [address] February, [facility] [address] [id number] [address] [place] [address], [place] [address] February, [facility] [address] [id number] [address] [place] [address], [place] [address] February, [facility] [address] [id number] [address] [place] [address], [place] [id number] February, [facility] [address] [id number] [address] [place] [address], [place] [address] February, [facility] [address] [id number] [address] [place] [address], [place] [address] February, [facility] [address] [id number] [address] [place] [address], [place] [address] February, [facility] [address] [id number] [address] [place] [address], [place] [address] February, [facility] [address] [id number] [address] [place] [address], [place] [address] February, [facility] [address] [id number] [address] [place] [address], [place] [address] February, [facility] [address] [id number] [address] [place] [address], [place] [address] Jan, [facility] [address] [id number] [address] [place] [address], [place] [address] Jan, [facility] [address] [id number] [address] [place] [address], [place] [address] Jan, [facility] [address] [id number] [address] [place] [address], [place] [address] Jan, [facility] [address] [id number] [address] [place] [address], [place] [address] Jan, [facility] [address] [id number] [address] [place] [address], [place] [address] Jan, [facility] [address] [id number] [address] [place] [address], [place] [address] 10 Jan, 2014 [facility] [address] [id number] [facility] [place] [address] 10 Jan, 2014 [facility] [address] [id number] [address] [place] [address], [place] [address] 21 Dec, 2013 [facility] [address] [id number] [address] [place] [address], [place] [address] 20 Dec, 2013 [facility] [address] [id number] [address] [place] [address], [place] [address] 20 Dec, 2013 [facility] [address] [id number] [address] [place] [address], [place] [address] 19 Dec, 2013 [facility] [address] [id number] [address] [place] [address], [place] [address] 19 Dec, 2013 [facility] [address] [id number] [address] [place] [address], [place] [id number] 15 Dec, 2013 [facility] [address] [id number] [address] [place] [address], [place] [address] 15 Dec, 2013 [facility] [address] [id number] [address] [place] [address], [place] [address] 11 Dec, 2013 [facility] [address] [id number] [address] [place] [address], [place] [address] 10 Dec, 2013 [facility] [address] [id number] [address] [place] [address], [place] [address] 10 Dec, 2013 [facility] [address] [id number] [address] [place] [address], [place] [address] 18 Nov, 2013 [facility] [address] [id number] [address] [place] [address], [place] [address] 17 Nov, 2013 [facility] [address] [id number] [address] [place] [address], [place] [address] 17 Nov, 2013 [facility] [address] [id number] [address] [place] [address], [place] [address] 05 Nov, 2013 [facility] [address] [id number] [address] [place] [address], [place] [address] Nov, [facility] [address] [id number] [address] [place] [address], [place] [address] Oct, [facility] [address] [id number] [address] [place] [address], [place] [address] Oct, [facility] [address] [id number] [address] [place] [address], [place] [address] Oct, [facility] [address] [id number] [address] [place] [address], [place] [address] Sep, [facility] [address] [id number] [address] [place] [address], [place] [address] Sep, [facility] [address] [id number] [address] [place] [address], [place] [address] Sep, [facility] [address] [id number] [address] [place] [address], [place] [address] Sep, [facility] [address] [id number] [address] [place] [address], [place] [address] Aug, [facility] [address] [id number] [address] [place] [address], [place] [address] Aug, [facility] [address] [id number] [address] [place] [address], [place] [address] Jul, [facility] [address] [id number] [address] [place] [address], [place] [address] Jul, [facility] [address] [id number] [address] [place] [address], [place] [address] Jul, [facility] [address] [id number] [address] [place] [address], [place] [address] Jul, [facility] [address] [id number] [address] [place] [address], [place] [address] Jul, [facility] [address] [id number] [address] [place] [address], [place] [address] 25 Jun, 2013 [facility] [address] [id number] [address] [place] [address], [place] [address] 25 Jun, 2013 [facility] [address] [id number] [address] [place] [address], [place] [address] 19 Jun, 2013 [facility] [address] [id number] [address] [place] [address], [place] [address] 18 Jun, 2013 [facility] [address] [id number] [address] [place] [address], [place] [address] 16 Jun, 2013 [facility] [address] [id number] [address] [place] [address], [place] [address] 12 Jun, 2013 [facility] [address] [id number] [address] [place] [address], [place] [address] 11 Jun, 2013 [facility] [address] [id number] [address] [place] [address], [place] [address] May, [facility] [address] [id number] [address] [place] [address], [place] [address] May, [facility] [address] [id number] [address] [place] [address], [place] [address] Apr, [facility] [address] [id number] [address] [place] [address], [place] [address] Apr, [facility] [address] [id number] [address] [place] [address], [place] [address] Apr, [facility] [address] [id number] [address] [place] [address], [place] [address] Mar, [facility] [address] [id number] [address] [place] [address], [place] [address] Mar, [facility] [address] [id number] [address] [place] [address], [place] [address] February, [facility] [address] [id number] [address] [place] [address], [place] [address] February, [facility] [address] [id number] [address] [place] [address], [place] [address] February, [facility] [address] [id number] [address] [place] [address], [place] [address] February, [facility] [address] [id number] [address] [place] [address], [place] [address] Jan, [facility] [address] [id number] [address] [place] [address], [place] [address] Jan, [facility] [address] [id number] [address] [place] [address], [place] [address] 16 Jan, 2013 [facility] [address] [id number] [address] [place] [address], [place] [address] 29 Dec, 2012 [facility] [address] [id number] [address] [place] [address], [place] [address] Dec, [facility] [address] [id number] [address] [place] [address], [place] [address] Dec, [facility] [address] [id number] [address] [place] [address], [place] [address] 08 Dec, 2012 [facility] [address] [id number] [address] [place] [address], [place] [address] Nov, [facility] [address] [id number] [address] [place] [address], [place] [address] Nov, [facility] [address] [id number] [address] [place] [address], [place] [address] Oct, [facility] [address] [id number] [address] [place] [address], [place] [address] Oct, [facility] [address] [id number] [address] [place] [address], [place] [address] Oct, [facility] [address] [id number] [address] [place] [address], [place] [address] Oct, [facility] [address] [id number] [address] [place] [address], [place] [address] Aug, [facility] [address] [id number] [address] [place] [address], [place] [address] Aug, [facility] [address] [id number] [address] [place] [address], [place] [address] Jun, [facility] [address] [id number] [address] [place] [address], [place] [address] May, [facility] [address] [id number] [address] [place] [address], [place] [address] May, [facility] [address] [id number] [address] [place] [address], [place] [address] Apr, [facility] [address] [id number] [address] [place] [address], [place] [address] Apr, [facility] [address] [id number] [address] [place] [address], [place] [address] Apr, [facility] [address] [id number] [address] [place] [address], [place] [address] Mar, [facility] [address] [id number] [address] [place] [address], [place] [address] Mar, [facility] [address] [id number] [address] [place] [address], [place] [address] Mar, [facility] [address] [id number] [address] [place] [address], [place] [address] Mar, [facility] [address] [id number] [address] [place] [address], [place] [address] Mar, [facility] [address] [id number] [address] [place] [address], [place] [address] February, [facility] [address] [id number] [address] [place] [address], [place] [address] February, [facility] [address] [id number] [address] [place] [address], [place] [address] February, [facility] [address] [id number] [address] [place] [id number] February, [facility] [address] [id number] [address] [place] [address], [place] [address] February, [facility] [address] [id number] [address] [place] [address], [place] [address] February, [facility] [address] [id number] [address] [place] [address], [place] [address] February, [facility] [address] [id number] [address] [place] [address], [place] [address] 25 Jan, 2012 [facility] [address] [id number] [address] [place] [address], [place] [address] 18 Jan, 2012 [facility] [address] [id number] [address] [place] [address], [place] [address] 17 Jan, 2012 [facility] [address] [id number] [address] [place] [address], [place] [address] Jan, [facility] [address] [id number] [address] [place] [address], [place] [address] Jan, [facility] [address] [id number] [address] [place] [address], [place] [address] 04 Jan, 2012 [facility] [address] [id number] [address] [place] [address], [place] [address] 30 Dec, 2011 [facility] [address] [id number] [address] [place] [address], [place] [address] 24 Dec, 2011 [facility] [address] [id number] [address] [place] [address], [place] [address] 20 Dec, 2011 [facility] [address] [id number] [address] [place] [address], [place] [address] 13 Dec, 2011 [facility] [address] [id number] [address] [place] [address], [place] [address] 06 Dec, 2011 [facility] [address] [id number] [address] [place] [address], [place] [address] 28 Nov, 2011 [facility] [address] [id number] [address] [place] [address], [place] [address] Nov, [facility] [address] [id number] [address] [place] [address], [place] [address] Nov, [facility] [address] [id number] [address] [place] [address], [place] [address] 14 Nov, 2011 [facility] [address] [id number] [address] [place] [address], [place] [address] Nov, [facility] [address] [id number] [address] [place] [address], [place] [address] Nov, [facility] [address] [id number] [address] [place] [address], [place] [address] Oct, [facility] [address] [id number] [address] [place] [address], [place] [address] Oct, [facility] [address] [id number] [address] [place] [address], [place] [address] Oct, [facility] [address] [id number] [address] [place] [address], [place] [address] Oct, [facility] [address] [id number] [address] [place] [address], [place] [address] Oct, [facility] [address] [id number] [address] [place] [address], [place] [address] Sep, [facility] [address] [id number] [address] [place] [address], [place] [address] Sep, [facility] [address] [id number] [address] [place] [address], [place] [address] Sep, [facility] [address] [id number] [address] [place] [address], [place] [address] Sep, [facility] [address] [id number] [address] [place] [address], [place] [address] Sep, [facility] [address] [id number] [address] [place] [id number] Sep, [facility] [address] [id number] [address] [place] [address], [place] [address] Sep, [facility] [address] [id number] [address] [place] [id number] Sep, [facility] [address] [id number] [address] [place] [address], [place] [address] Sep, [facility] [address] [id number] [address] [place] [id number] Aug, [facility] [address] [id number] [address] [place] [address], [place] [address] Aug, [facility] [address] [id number] [address] [place] [address], [place] [address] Aug, [facility] [address] [id number] [address] [place] [address], [place] [address] Aug, [facility] [address] [id number] [address] [place] [address], [place] [address] Aug, [facility] [address] [id number] [address] [place] [id number] Aug, [facility] [address] [id number] [address] [place] [address], [place] [address] Aug, [facility] [address] [id number] [address] [place] [id number] Aug, [facility] [address] [id number] [address] [place] [address] Aug, [facility] [address] [id number] [address] [place] [address], [place] [address] Aug, [facility] [address] [id number] [address] [place] [address], [place] [address] Aug, [facility] [address] [id number] [address] [place] [address], [place] [address] Aug, [facility] [address] [id number] [address] [place] [address], [place] [address] Jul, [facility] [address] [id number] [address] [place] [address], [place] [address] Jul, [facility] [address] [id number] [address] [place] [address], [place] [address] Jul, [facility] [address] [id number] [address] [place] [address], [place] [address] Jul, [facility] [address] [id number] [address] [place] [address], [place] [address] Jul, [facility] [address] [id number] [address] [place] [address], [place] [address] Jul, [facility] [address] [id number] [address] [place] [address], [place] [address] Jul, [facility] [address] [id number] [address] [place] [address], [place] [address] Jul, [facility] [address] [id number] [address] [place] [address], [place] [address] Jul, [facility] [address] [id number] [address] [place] [address], [place] [address] Jul, [facility] [address] [id number] [address] [place] [address], [place] [address] Nov, [facility] [address] [id number] [address] [place] [address], [place] [address] Aug, [facility] [address] [id number] [address] [place] [address], [place] [address] Aug, [facility] [address] [id number] [address] [place] [address], [place] [id number] Aug, [facility] [address] [id number] [address] [place] [address], [place] [id number] Aug, [facility] [address] [id number] [address] [place] [address], [place] [id number] Jul, IMMUNIZATIONS No Known Immunizations SOCIAL HISTORY Never Assessed REASON FOR VISIT EMR-[facility] [place] PLAN OF CARE VITAL SIGNS [...] Suicide attempt by hanging 2015 Hospitalization History [facility] 01/30/2018-02/10/20 08 Hospitalization History [facility] 05/04/18-
--- OUTSIDE RECORDS SUMMARY | 2020-04-04 02:29 | XMS REPORT ---
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 Active 37402950 Problem Generalized anxiety disorder 300.02 A ctive 86948535 Problem Obsessive-compulsive disorders 300.3 Active 843145490 Problem Catatonic schizophrenia, 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 699557009 Problem Disorganized schizophrenia, 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 78820126 Problem Paranoid schizophrenia F20.0 Active 57714245 Problem Borderline personality disorder F60.3 Active 35393690 Problem Paranoid schizophrenia, unspecified condition 295.30 Active 26238027 Problem Schizoaffective disorder, depressive type F25.1 Active 91052033 Problem Bipolar disorder, unspecified 296.80 Active 32873490 Problem Schizoaffective disorder, unspecified F25.9 Active 78603288 Problem Attention deficit hyperactivity disorder (ADHD), inattentive type, 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 [id number] [address] [place] [phone] Mar, [facility] [address] 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 and Borderline personality disorder F60.3 [facility] [address] [id number] [address] [place] [phone] Oct, Paranoid schizophrenia F20.0 ; Posttraumatic stress disorder F43.10 ; Attention deficit hyperactivity disorder (ADHD), inattentive type, 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 [id number] [address] [place] [phone] Jul, Dry skin dermatitis L85.3 [facility] [address] 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 and Borderline personality disorder F60.3 [facility] [address] [id number] [address] [place] [phone] May, [facility] [address] [id number] [address] [place] [phone] May, Paranoid schizophrenia F20.0 [facility] [address] [id number] [address] [place] [phone] May, Paranoid schizophrenia F20.0 ; Posttraumatic stress disorder F43.10 ; Attention deficit hyperactivity disorder (ADHD), inattentive type, 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 and Borderline personality disorder F60.3 [facility] [address] [id number] [address] [place] [phone] Apr, [facility] [address] [id number] [address] [place] [phone] Apr, Paranoid schizophrenia F20.0 ; Posttraumatic stress disorder F43.10 ; Attention deficit hyperactivity disorder (ADHD), inattentive type, 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 and Borderline personality disorder F60.3 [facility] [address] [id number] [address] [place] [phone] Apr, [facility] [address] [id number] [address] [place] [phone] Apr, Schizoaffective disorder, de pressive type F25.1 and Borderline personality disorder F60.3 [facility] [address] [id number] [address] [place] [phone] Apr, Paranoid schizophrenia F20.0 ; Posttraumatic stress disorder F43.10 ; Attention deficit hyperactivity disorder (ADHD), inattentive type, 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 and Borderline personality disorder F60.3 [facility] [address] [id number] [address] [place] [phone] Apr, [facility] [address] [id number] [address] [place] [phone] Apr, Paranoid schizophrenia F20.0 ; Posttraumatic stress disorder F43.10 ; Attention deficit hyperactivity disorder (ADHD), inattentive type, 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 and Borderline personality disorder F60.3 [facility] [address] [id number] [address] [place] [phone] February, Paranoid schizophrenia F20.0 ; Posttraumatic stress disorder F43.10 ; Attention deficit hyperactivity disorder (ADHD), inattentive type, 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 [id number] [address] [place] [phone] February, Paranoid schizophrenia F20.0 [facility] [address] 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 [id number] [address] [place] [phone] Jan, Paranoid schizophrenia F20.0 [facility] [address] 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 [id number] [address] [place] [phone] Dec, [facility] [address] 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 [id number] [address] [place] [phone] Nov, [facility] [address] 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 ; Borderline personality disorder F60.3 and Other termite treater (current) drug therapy Z79.899 [facility] [address] [id number] [address] [place] [phone] Oct, [facility] [address] [id number] [address] [place] [phone] Oct, [facility] [address] [id number] [address] [place] [address], [place] [address] Sep, [facility] [address] [id number] [address] [place] [phone] Sep, Paranoid schizophrenia F20.0 ; Posttraumatic stress disorder F43.10 ; Attention deficit hyperactivity disorder (ADHD), inattentive type, 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 and Borderline personality disorder F60.3 [facility] [address] [id number] [address] [place] [phone] Sep, Paranoid schizophrenia F20.0 [facility] [address] [id number] [address] [place] [phone] Aug, Paranoid schizophrenia F20.0 ; Posttraumatic stress disorder F43.10 ; Attention deficit hyperactivity disorder (ADHD), inattentive type, 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 and Borderline personality disorder F60.3 [facility] [address] [id number] [address] [place] [phone] Aug, Paranoid schizophrenia F20.0 ; Posttraumatic stress disorder F43.10 ; Attention deficit hyperactivity disorder (ADHD), inattentive type, 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 [id number] [address] [place] [phone] May, Other termite treater (current) dr gabriel parra Z79.899 [facility] [address] [facility] [id number] [address] [place] [phone] May, [facility] [address] [facility] [id number] [address] [place] [phone] May, [facility] [address] [facility] [id number] [address] [place] [phone] May, Attention deficit hyperactiv ity disorder (ADHD), inattentive type, mild F90.0 [facility] [address] [id number] [address] [place] [phone] May, [facility] [address] [facility] [id number] [address] [place] [phone] May, Attention deficit hyperactiv ity disorder (ADHD), inattentive type, mild F90.0 [facility] [address] 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 and Other fci (current) drug therapy Z79.899 [facility] [address] [id number] [address] [place] [phone] Apr, Paranoid schizophrenia F20.0 [facility] [address] [id number] [address] [place] [phone] Apr, Paranoid schizophrenia F20.0 ; Posttraumatic stress disorder F43.10 and Attention deficit hyperactivity disorder (ADHD), inattentive type, 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 [facility] [address] [id number] [address] [place] [phone] February, [facility] [address] [id number] [address] [place] [phone] February, Paranoid schizophrenia F20.0 ; Posttraumatic stress disorder F43.10 and Attention deficit hyperactivity disorder (ADHD), inattentive type, 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 [facility] [address] [id number] [address] [place] [phone] February, Paranoid schizophrenia F20.0 ; Posttraumatic stress disorder F43.10 and Attention deficit hyperactivity disorder (ADHD), inattentive type, 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 [facility] [address] [id number] [address] [place] [phone] Jan, Paranoid schizophrenia F20.0 ; Posttraumatic stress disorder F43.10 and Attention deficit hyperactivity disorder (ADHD), inattentive type, 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 [id number] [address] [place] [phone] 13 Nov, 2016 High risk medication use Z79 .899 [facility] [address] 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 [id number] [address] [place] [phone] Aug, Strep throat J02.0 and Cough R05 [facility] [address] [facility] [id number] [address] [place] [phone] Aug, [facility] [address] 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 [facility] [address] [id number] [address] [place] [address] [id number] Jun, Dental examination Z01.20 [facility] [address] [id number] [address] [place] [phone] Jun, [facility] [address] [id number] [address] [place] [phone] May, Paranoid schizophrenia F20.0 [facility] [address] [id number] [address] [place] [phone] May, Paranoid schizophrenia F20.0 ; Posttraumatic stress disorder F43.10 and Attention deficit hyperactivity disorder (ADHD), inattentive type, 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 [facility] [address] [id number] [address] [place] [phone] May, [facility] [address] [id number] [address] [place] [phone] May, Paranoid schizophrenia F20.0 [facility] [address] [id number] [address] [place] [phone] May, [facility] [address] [id number] [address] [place] [phone] May, Paranoid schizophrenia F20.0 [facility] [address] [id number] [address] [place] [phone] May, Schizoaffective disorder, un specified F25.9 [facility] [address] [id number] [address] [place] [phone] May, Schizoaffective disorder, un specified F25.9 [facility] [address] [id number] [address] [place] [phone] May, [facility] [address] [id number] [place] [address] May, Paranoid schizophrenia F20.0 [facility] [address] [id number] [address] [place] [address], [place] [address] May, Paranoid schizophrenia F20.0 ; Posttraumatic stress disorder F43.10 and Attention deficit hyperactivity disorder (ADHD), inattentive type, 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 [facility] [address] [id number] [address] [place] [phone] Mar, [facility] [address] [id number] [address] [place] [address], [place] [address] Mar, Paranoid schizophrenia F20.0 ; Posttraumatic stress disorder F43.10 and Attention deficit hyperactivity disorder (ADHD), inattentive type, 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 [facility] [address] [id number] [address] [place] [address], [place] [address] Mar, Paranoid schizophrenia F20.0 [facility] [address] [id number] [address] [place] [address], [place] [address] Mar, Paranoid schizophrenia F20.0 ; Attention deficit hyperactivity disorder (ADHD), inattentive type, 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 and Posttraumatic stress disorder F43.10 [facility] [address] [id number] [address] [place] [address], [place] [address] Mar, [facility] [address] [id number] [address] [place] [phone] Mar, Paranoid schizophrenia F20.0 ; Posttraumatic stress disorder F43.10 and Attention deficit hyperactivity disorder (ADHD), inattentive type, 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 [facility] [address] [id number] [address] [place] [address], [place] [address] February, [facility] [address] [id number] [address] [place] [address], [place] [address] February, [facility] [address] [id number] [address] [place] [phone] February, [facility] [address] [id number] [address] [place] [phone] February, [facility] [address] [id number] [address] [place] [phone] Jan, Paranoid schizophrenia F20.0 [facility] [address] [id number] [address] [place] [address] [id number] Jan, Dental examination Z01.20 [facility] [address] [id number] [address] [place] [address] [id number] Jan, Dental caries K02.9 [facility] [address] [id number] [address] [place] [address] [id number] Jan, Dental examination Z01.20 [facility] [address] [id number] [address] [place] [address] [id number] Dec, Encounter for dental examina tion Z01.20 [facility] [address] [id number] [address] [place] [phone] Dec, Paranoid schizophrenia F20.0 [facility] [address] [id number] [address] [place] [address] [id number] Dec, Dental examination Z01.20 [facility] [address] [id number] [address] [place] [id number] Dec, [facility] [address] [id number] [address] [place] [phone] Dec, Paranoid schizophrenia F20.0 ; Posttraumatic stress disorder F43.10 and Attention deficit hyperactivity disorder (ADHD), inattentive type, 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 [id number] [address] [place] [address] Aug, [facility] [address] 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 [id number] [address] [place] [address] Jul, Bipolar disorder, unspecifie d F31.9 [facility] [address] [facility] [id number] [address] [place] [address] Jul, [facility] [address] [facility] [id number] [address] [place] [address] Jun, [facility] [address] [facility] [id number] [address] [place] [address] Jun, Schizoaffective disorder, ch ronic 295.72 ; Posttraumatic stress disorder 309.81 and Attention deficit disorder of childhood without mention of hyperactivity 314.00 [facility] [address] [facility] [id number] [address] [place] [address] May, [facility] [address] [id number] [address] [place] [address] May, [facility] [address] [id number] [address] [place] [address] May, Schizoaffective disorder, ch ronic 295.72 ; Posttraumatic stress disorder 309.81 ; Attention deficit disorder of childhood without mention of hyperactivity 314.00 and Bipolar disorder, unspecified 296.80 [facility] [address] [id number] [address] [place] [address] Apr, Schizoaffective disorder, ch ronic 295.72 [facility] [address] [id number] [address] [place] [address] Apr, [facility] [address] [id number] [address] [place] [address] Apr, Schizoaffective disorder, ch ronic 295.72 ; Posttraumatic stress disorder 309.81 and Attention deficit disorder of childhood without mention of hyperactivity 314.00 [facility] [address] [id number] [address] [place] [address] Mar, Disorganized schizophrenia, 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 [id number] [address] [place] [address] Mar, [facility] [address] [id number] [address] [place] [address] Mar, [facility] [address] [facility] [id number] [address] [place] [address] February, Schizoaffective disorder, ch ronic 295.72 [facility] [address] [facility] [id number] [address] [place] [address] February, [facility] [address] [id number] [address] [place] [address] February, Attention 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 ; Posttraumatic stress disorder 309.81 and Schizoaffective disorder, chronic 295.72 [facility] [address] [id number] [address] [place] [address] Jan, [facility] [address] [id number] [address] [place] [address] Jan, [facility] [address] [id number] [address] [place] [address] Jan, [facility] [address] [id number] [address] [place] [address] Dec, [facility] [address] [id number] [address] [place] [address] Dec, [facility] [address] [id number] [address] [place] [address] Dec, [facility] [address] [id number] [address] [place] [address] Dec, [facility] [address] [id number] [address] [place] [address] Dec, [facility] [address] [id number] [address] [place] [address] Dec, [facility] [address] [id number] [address] [place] [id number] Dec, [facility] [address] [id number] [address] [place] [phone] Dec, [facility] [address] [id number] [address] [place] [id number] Nov, [facility] [address] [id number] [address] [place] [address] Nov, [facility] [address] [id number] [address] [place] [address] [place] [address] Nov, 2014 [facility] [address] [id number] [address] [place] [address], [place] [address] Nov, 2014 [facility] [address] [id number] [address] [place] [address], [place] [address] Nov, 2014 [facility] [address] [id number] [address] [place] [address], [place] [address] Nov, 2014 [facility] [address] [id number] [address] [place] [address], [place] [address] Nov, 2014 [facility] [address] [id number] [address] [place] [address], [place] [address] Nov, 2014 [facility] [address] [id number] [address] [place] [address], [place] [address] Nov, [facility] [address] [id number] [address] [place] [address], [place] [address] Nov, [facility] [address] [id number] [address] [place] [address], [place] [address] Oct, [facility] [address] [id number] [address] [place] [address], [place] [address] Oct, [facility] [address] [id number] [address] [place] [phone] Oct, [facility] [address] [id number] [address] [place] [address], [place] [address] Oct, [facility] [address] [id number] [address] [place] [address] Oct, [facility] [address] [id number] [address] [place] [address], [place] [address] Oct, [facility] [address] [id number] [address] [place] [address], [place] [address] Oct, [facility] [address] [id number] [address] [place] [address], [place] [address] Sep, [facility] [address] [id number] [address] [place] [address], [place] [address] 17 Sep, 2014 [facility] [address] [id number] [address] [place] [address], [place] [address] 15 Sep, 2014 [facility] [address] [id number] [address] [place] [address], [place] [address] 15 Sep, 2014 [facility] [address] [id number] [address] [place] [address], [place] [address] Aug, [facility] [address] [id number] [address] [place] [address], [place] [address] Aug, [facility] [address] [id number] [address] [place] [address], [place] [address] Aug, [facility] [address] [id number] [address] [place] [address], [place] [address] Aug, [facility] [address] [id number] [address] [place] [address], [place] [address] Aug, [facility] [address] [id number] [address] [place] [address], [place] [address] Aug, [facility] [address] [id number] [address] [place] [address], [place] [address] Jul, [facility] [address] [id number] [address] [place] [address], [place] [address] 29 Jul, 2014 [facility] [address] [id number] [address] [place] [address], [place] [address] 24 Jul, 2014 [facility] [address] [id number] [address] [place] [address], [place] [address] 24 Jul, 2014 [facility] [address] [id number] [address] [place] [address], [place] [address] 15 Jul, 2014 [facility] [address] [id number] [address] [place] [address], [place] [address] 15 Jul, 2014 [facility] [address] [id number] [address] [place] [address] [place] [address] 27 Sep, 2013 [facility] [address] [id number] [facility] [place] [address] 27 Sep, 2013 [facility] [address] [id number] [facility] [place] [address] 26 Sep, 2013 [facility] [address] [id number] [address] [place] [address], [place] [address] 26 Sep, 2013 [facility] [address] [id number] [address] [place] [address], [place] [address] 26 Jun, 2013 [facility] [address] [id number] [address] [place] [address], [place] [address] 26 Jun, 2013 [facility] [address] [id number] [address] [place] [address], [place] [address] 16 Jun, 2013 [facility] [address] [id number] [address] [place] [address], [place] [address] 16 Jun, 2013 [facility] [address] [id number] [address] [place] [address], [place] [address] 16 Jun, 2013 [facility] [address] [id number] [address] [place] [address], [place] [address] 16 Jun, 2013 [facility] [address] [id number] [address] [place] [address], [place] [address] 04 Jun, 2013 [facility] [address] [id number] [address] [place] [address], [place] [address] May, 2013 [facility] [address] [id number] [address] [place] [address], [place] [address] May, [facility] [address] [id number] [address] [place] [address], [place] [address] May, 2013 [facility] [address] [id number] [address] [place] [address], [place] [address] May, 2013 [facility] [address] [id number] [address] [place] [address], [place] [address] May, 2013 [facility] [address] [id number] [facility] [place] [address] May, [facility] [address] [id number] [facility] [place] [address] May, [facility] [address] [id number] [address] [place] [address], [place] [address] May, [facility] [address] [id number] [address] [place] [address], [place] [address] May, [facility] [address] [id number] [address] [place] [address], [place] [address] May, [facility] [address] [id number] [address] [place] [address], [place] [address] Apr, [facility] [address] [id number] [address] [place] [address], [place] [address] Apr, [facility] [address] [id number] [address] [place] [address], [place] [address] Apr, [facility] [address] [id number] [address] [place] [address], [place] [address] Apr, [facility] [address] [id number] [address] [place] [address], [place] [address] Apr, [facility] [address] [id number] [address] [place] [address], [place] [address] Apr, [facility] [address] [id number] [address] [place] [address], [place] [address] Apr, [facility] [address] [id number] [address] [place] [address], [place] [address] Apr, [facility] [address] [id number] [address] [place] [address], [place] [address] Apr, [facility] [address] [id number] [address] [place] [address], [place] [address] Apr, [facility] [address] [id number] [address] [place] [address], [place] [address] Mar, [facility] [address] [id number] [facility] [place] [address] Mar, [facility] [address] [id number] [facility] [place] [address] 25 Mar, 2014 [facility] [address] [id number] [facility] [place] [address] 24 Mar, 2014 [facility] [address] [id number] [address] [place] [address], [place] [address] 20 Mar, 2014 [facility] [address] [id number] [address] [place] [address], [place] [address] 18 Mar, 2014 [facility] [address] [id number] [address] [place] [address], [place] [address] 18 Mar, 2014 [facility] [address] [id number] [address] [place] [address], [place] [address] 16 Mar, 2014 [facility] [address] [id number] [address] [place] [address], [place] [address] 16 Mar, 2014 [facility] [address] [id number] [address] [place] [address], [place] [address] 13 Mar, 2014 [facility] [address] [id number] [address] [place] [address], [place] [address] 13 Mar, 2014 [facility] [address] [id number] [address] [place] [address], [place] [address] 11 Mar, 2014 [facility] [address] [id number] [address] [place] [address], [place] [address] 11 Mar, 2014 [facility] [address] [id number] [address] [place] [address], [place] [address] 10 Mar, 2014 [facility] [address] [id number] [address] [place] [address], [place] [address] 09 Mar, 2014 [facility] [address] [id number] [address] [place] [address], [place] [address] 09 Mar, 2014 [facility] [address] [id number] [facility] [place] [address] Mar, [facility] [address] [id number] [address] [place] [address], [place] [address] Mar, [facility] [address] [id number] [address] [place] [address], [place] [address] Mar, [facility] [address] [id number] [address] [place] [address], [place] [address] Mar, [facility] [address] [id number] [address] [place] [address], [place] [address] February, [facility] [address] [id number] [address] [place] [address], [place] [address] February, [facility] [address] [id number] [address] [place] [address], [place] [address] February, [facility] [address] [id number] [address] [place] [address], [place] [address] February, [facility] [address] [id number] [address] [place] [address], [place] [address] February, [facility] [address] [id number] [address] [place] [address], [place] [address] February, [facility] [address] [id number] [address] [place] [address], [place] [address] February, [facility] [address] [id number] [address] [place] [address], [place] [address] February, [facility] [address] [id number] [address] [place] [address], [place] [address] February, [facility] [address] [id number] [address] [place] [address], [place] [address] February, [facility] [address] [id number] [address] [place] [address], [place] [address] February, [facility] [address] [id number] [address] [place] [address], [place] [address] February, [facility] [address] [id number] [address] [place] [address], [place] [address] February, [facility] [address] [id number] [address] [place] [address], [place] [address] February, [facility] [address] [id number] [address] [place] [address], [place] [address] February, [facility] [address] [id number] [address] [place] [address], [place] [address] February, [facility] [address] [id number] [address] [place] [address], [place] [address] February, [facility] [address] [id number] [address] [place] [address], [place] [address] February, [facility] [address] [id number] [address] [place] [address], [place] [address] February, [facility] [address] [id number] [address] [place] [address], [place] [address] February, [facility] [address] [id number] [address] [place] [address], [place] [address] February, [facility] [address] [id number] [address] [place] [address], [place] [address] Jan, [facility] [address] [id number] [address] [place] [address], [place] [address] Jan, [facility] [address] [id number] [address] [place] [address], [place] [address] Jan, [facility] [address] [id number] [address] [place] [address], [place] [address] Jan, [facility] [address] [id number] [address] [place] [address], [place] [address] Jan, [facility] [address] [id number] [address] [place] [address], [place] [address] Jan, [facility] [address] [id number] [address] [place] [address], [place] [address] 10 Jan, 2014 [facility] [address] [id number] [facility] [place] [address] 10 Jan, 2014 [facility] [address] [id number] [address] [place] [address], [place] [address] 21 Dec, 2013 [facility] [address] [id number] [address] [place] [address], [place] [address] 20 Dec, 2013 [facility] [address] [id number] [address] [place] [address], [place] [address] 20 Dec, 2013 [facility] [address] [id number] [address] [place] [address], [place] [address] 19 Dec, 2013 [facility] [address] [id number] [address] [place] [address], [place] [address] 19 Dec, 2013 [facility] [address] [id number] [address] [place] [address], [place] [address] 15 Dec, 2013 [facility] [address] [id number] [address] [place] [address], [place] [address] 15 Dec, 2013 [facility] [address] [id number] [address] [place] [address], [place] [address] 11 Dec, 2013 [facility] [address] [id number] [address] [place] [address], [place] [address] 10 Dec, 2013 [facility] [address] [id number] [address] [place] [address], [place] [address] 10 Dec, 2013 [facility] [address] [id number] [address] [place] [address], [place] [address] 18 Nov, 2013 [facility] [address] [id number] [address] [place] [address], [place] [address] 17 Nov, 2013 [facility] [address] [id number] [address] [place] [address], [place] [address] 17 Nov, 2013 [facility] [address] [id number] [address] [place] [address], [place] [address] 05 Nov, 2013 [facility] [address] [id number] [address] [place] [address], [place] [address] Nov, [facility] [address] [id number] [address] [place] [address], [place] [address] Oct, [facility] [address] [id number] [address] [place] [address], [place] [address] Oct, [facility] [address] [id number] [address] [place] [address], [place] [address] Oct, [facility] [address] [id number] [address] [place] [address], [place] [address] Sep, [facility] [address] [id number] [address] [place] [address], [place] [address] Sep, [facility] [address] [id number] [address] [place] [address], [place] [address] Sep, [facility] [address] [id number] [address] [place] [address], [place] [address] Sep, [facility] [address] [id number] [address] [place] [address], [place] [address] Aug, [facility] [address] [id number] [address] [place] [address], [place] [address] Aug, [facility] [address] [id number] [address] [place] [address], [place] [address] Jul, [facility] [address] [id number] [address] [place] [address], [place] [address] Jul, [facility] [address] [id number] [address] [place] [address], [place] [address] Jul, [facility] [address] [id number] [address] [place] [address], [place] [address] Jul, [facility] [address] [id number] [address] [place] [address], [place] [address] Jul, [facility] [address] [id number] [address] [place] [address], [place] [address] 25 Jun, 2013 [facility] [address] [id number] [address] [place] [address], [place] [address] 25 Jun, 2013 [facility] [address] [id number] [address] [place] [address], [place] [address] 19 Jun, 2013 [facility] [address] [id number] [address] [place] [address], [place] [address] 18 Jun, 2013 [facility] [address] [id number] [address] [place] [address], [place] [address] 16 Jun, 2013 [facility] [address] [id number] [address] [place] [address], [place] [address] 12 Jun, 2013 [facility] [address] [id number] [address] [place] [address], [place] [address] 11 Jun, 2013 [facility] [address] [id number] [address] [place] [address], [place] [address] May, [facility] [address] [id number] [address] [place] [address], [place] [address] May, [facility] [address] [id number] [address] [place] [address], [place] [address] Apr, [facility] [address] [id number] [address] [place] [address], [place] [address] Apr, [facility] [address] [id number] [address] [place] [address], [place] [address] Apr, [facility] [address] [id number] [address] [place] [address], [place] [address] Mar, [facility] [address] [id number] [address] [place] [address], [place] [address] Mar, [facility] [address] [id number] [address] [place] [address], [place] [address] February, [facility] [address] [id number] [address] [place] [address], [place] [address] February, [facility] [address] [id number] [address] [place] [address], [place] [address] February, [facility] [address] [id number] [address] [place] [address], [place] [address] February, [facility] [address] [id number] [address] [place] [address], [place] [address] Jan, [facility] [address] [id number] [address] [place] [address], [place] [address] Jan, [facility] [address] [id number] [address] [place] [address], [place] [address] 16 Jan, 2013 [facility] [address] [id number] [address] [place] [address], [place] [address] 29 Dec, 2012 [facility] [address] [id number] [address] [place] [address], [place] [address] Dec, [facility] [address] [id number] [address] [place] [address], [place] [address] Dec, [facility] [address] [id number] [address] [place] [address], [place] [address] 08 Dec, 2012 [facility] [address] [id number] [address] [place] [address], [place] [address] Nov, [facility] [address] [id number] [address] [place] [address], [place] [address] Nov, [facility] [address] [id number] [address] [place] [address], [place] [address] Oct, [facility] [address] [id number] [address] [place] [address], [place] [address] Oct, [facility] [address] [id number] [address] [place] [address], [place] [address] Oct, [facility] [address] [id number] [address] [place] [address], [place] [address] Oct, [facility] [address] [id number] [address] [place] [address], [place] [address] Aug, [facility] [address] [id number] [address] [place] [address], [place] [address] Aug, [facility] [address] [id number] [address] [place] [address], [place] [address] Jun, [facility] [address] [id number] [address] [place] [address], [place] [address] May, [facility] [address] [id number] [address] [place] [address], [place] [address] May, [facility] [address] [id number] [address] [place] [address], [place] [address] Apr, [facility] [address] [id number] [address] [place] [address], [place] [address] Apr, [facility] [address] [id number] [address] [place] [address], [place] [address] Apr, [facility] [address] [id number] [address] [place] [address], [place] [address] Mar, [facility] [address] [id number] [address] [place] [address], [place] [address] Mar, [facility] [address] [id number] [address] [place] [address], [place] [address] Mar, [facility] [address] [id number] [address] [place] [address], [place] [address] Mar, [facility] [address] [id number] [address] [place] [address], [place] [address] Mar, [facility] [address] [id number] [address] [place] [address], [place] [address] February, [facility] [address] [id number] [address] [place] [address], [place] [address] February, [facility] [address] [id number] [address] [place] [address], [place] [address] February, [facility] [address] [id number] [address] [place] [address] February, [facility] [address] [id number] [address] [place] [address], [place] [address] February, [facility] [address] [id number] [address] [place] [address], [place] [address] February, [facility] [address] [id number] [address] [place] [address], [place] [address] February, [facility] [address] [id number] [address] [place] [address], [place] [address] 25 Jan, 2012 [facility] [address] [id number] [address] [place] [address], [place] [address] 18 Jan, 2012 [facility] [address] [id number] [address] [place] [address], [place] [address] 17 Jan, 2012 [facility] [address] [id number] [address] [place] [address], [place] [address] Jan, [facility] [address] [id number] [address] [place] [address], [place] [address] Jan, [facility] [address] [id number] [address] [place] [address], [place] [address] 04 Jan, 2012 [facility] [address] [id number] [address] [place] [address], [place] [address] 30 Dec, 2011 [facility] [address] [id number] [address] [place] [address], [place] [address] 24 Dec, 2011 [facility] [address] [id number] [address] [place] [address], [place] [address] 20 Dec, 2011 [facility] [address] [id number] [address] [place] [address], [place] [address] 13 Dec, 2011 [facility] [address] [id number] [address] [place] [address], [place] [address] 06 Dec, 2011 [facility] [address] [id number] [address] [place] [address], [place] [address] 28 Nov, 2011 [facility] [address] [id number] [address] [place] [address], [place] [address] Nov, [facility] [address] [id number] [address] [place] [address], [place] [address] Nov, [facility] [address] [id number] [address] [place] [address], [place] [address] 14 Nov, 2011 [facility] [address] [id number] [address] [place] [address], [place] [address] Nov, [facility] [address] [id number] [address] [place] [address], [place] [address] Nov, [facility] [address] [id number] [address] [place] [address], [place] [address] Oct, [facility] [address] [id number] [address] [place] [address], [place] [address] Oct, [facility] [address] [id number] [address] [place] [address], [place] [address] Oct, [facility] [address] [id number] [address] [place] [address], [place] [address] Oct, [facility] [address] [id number] [address] [place] [address], [place] [address] Oct, [facility] [address] [id number] [address] [place] [address], [place] [address] Sep, [facility] [address] [id number] [address] [place] [address], [place] [address] Sep, [facility] [address] [id number] [address] [place] [address], [place] [address] Sep, [facility] [address] [id number] [address] [place] [address], [place] [address] Sep, [facility] [address] [id number] [address] [place] [address], [place] [address] Sep, [facility] [address] [id number] [address] [place] [address] Sep, [facility] [address] [id number] [address] [place] [address], [place] [address] Sep, [facility] [address] [id number] [address] [place] [address] Sep, [facility] [address] [id number] [address] [place] [address], [place] [address] Sep, [facility] [address] [id number] [address] [place] [address] Aug, [facility] [address] [id number] [address] [place] [address], [place] [address] Aug, [facility] [address] [id number] [address] [place] [address], [place] [address] Aug, [facility] [address] [id number] [address] [place] [address], [place] [address] Aug, [facility] [address] [id number] [address] [place] [address], [place] [address] Aug, [facility] [address] [id number] [address] [place] [address] Aug, [facility] [address] [id number] [address] [place] [address], [place] [address] Aug, [facility] [address] [id number] [address] [place] [address] Aug, [facility] [address] [id number] [address] [place] [address] Aug, [facility] [address] [id number] [address] [place] [address], [place] [address] Aug, [facility] [address] [id number] [address] [place] [address], [place] [address] Aug, [facility] [address] [id number] [address] [place] [address], [place] [address] Aug, [facility] [address] [id number] [address] [place] [address], [place] [address] Jul, [facility] [address] [id number] [address] [place] [address], [place] [address] Jul, [facility] [address] [id number] [address] [place] [address], [place] [address] Jul, [facility] [address] [id number] [address] [place] [address], [place] [address] Jul, [facility] [address] [id number] [address] [place] [address], [place] [address] Jul, [facility] [address] [id number] [address] [place] [address], [place] [address] Jul, [facility] [address] [id number] [address] [place] [address], [place] [address] Jul, [facility] [address] [id number] [address] [place] [address], [place] [address] Jul, [facility] [address] [id number] [address] [place] [address], [place] [address] Jul, [facility] [address] [id number] [address] [place] [address], [place] [address] Jul, [facility] [address] [id number] [address] [place] [address], [place] [address] Nov, [facility] [address] [id number] [address] [place] [address], [place] [address] Aug, [facility] [address] [id number] [address] [place] [address], [place] [address] Aug, [facility] [address] [id number] [address] [place] [address], [place] [address] Aug, [facility] [address] [id number] [address] [place] [address], [place] [address] Aug, [facility] [address] [id number] [address] [place] [address], [place] [address] Jul, IMMUNIZATIONS No Known Immunizations SOCIAL HISTORY Never Assessed REASON FOR VISIT EMR-[facility] [place] PLAN OF CARE VITAL SIGNS MEDICATIONS Unknown [...] Suicide attempt by hanging 2015 Hospitalization History [facility] 01/30/2018-02/10/20 08 Hospitalization History [facility] 05/04/18-
--- OUTSIDE RECORDS SUMMARY | 2020-04-04 02:30 | XMS REPORT ---
Author Author Kaila Onofre Doctor Organization 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 Active 88623382 Problem Generalized anxiety disorder 300.02 A ctive 42411826 Problem Obsessive-compulsive disorders 300.3 Active 894643034 Problem Catatonic schizophrenia, 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 418236465 Problem Disorganized schizophrenia, 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 83999738 Problem Paranoid schizophrenia F20.0 Active 03140379 Problem Borderline personality disorder F60.3 Active 93613229 Problem Paranoid schizophrenia, unspecified condition 295.30 Active 81712169 Problem Schizoaffective disorder, depressive type F25.1 Active 64691191 Problem Bipolar disorder, unspecified 296.80 Active 12857895 Problem Schizoaffective disorder, unspecified F25.9 Active 86842336 Problem Attention deficit hyperactivity disorder (ADHD), inattentive type, 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 21371396 Problem Posttraumatic stress disorder F43.10 Active 68991328 Problem High risk medication use Z79.899 Activ e [id number] ALLERGIES No Information ENCOUNTERS Encounter Location Date Diagnosis [facility] [address] [facility] [id number] [address] [place] [id number] Mar, [facility] [address] [facility] [id number] [address] [place] [address] Jan, Paranoid schizophrenia F20.0 ; Posttraumatic stress disorder F43.10 ; Attention deficit hyperactivity disorder (ADHD), inattentive type, 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 and Borderline personality disorder F60.3 [facility] [address] [facility] [id number] [address] [place] [address] Dec, Paranoid schizophrenia F20.0 ; Posttraumatic stress disorder F43.10 ; Attention deficit hyperactivity disorder (ADHD), inattentive type, 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 and Borderline personality disorder F60.3 [facility] [address] [facility] [id number] [address] [place] [id number] Dec, Paranoid schizophrenia F20.0 ; Posttraumatic stress disorder F43.10 ; Attention deficit hyperactivity disorder (ADHD), inattentive type, 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 and Borderline personality disorder F60.3 [facility] [address] [place] [id number] [place] [address] Oct, Paranoid schizophrenia F20.0 ; Posttraumatic stress disorder F43.10 ; Attention deficit hyperactivity disorder (ADHD), inattentive type, 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 and Borderline personality disorder F60.3 [facility] [address] [place] [id number] [address] [place] [address] Oct, Paranoid schizophrenia F20.0 ; Posttraumatic stress disorder F43.10 ; Attention deficit hyperactivity disorder (ADHD), inattentive type, 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 and Borderline personality disorder F60.3 [facility] [id number] [place] [address] Aug, [facility] [address] [place] [id number] [place] [address] Aug, Paranoid schizophrenia F20.0 ; Posttraumatic stress disorder F43.10 ; Attention deficit hyperactivity disorder (ADHD), inattentive type, 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 and Borderline personality disorder F60.3 [facility] [address] [facility] [id number] [address] [place] [address] Jul, Dry skin dermatitis L85.3 [facility] [address] [facility] [id number] [address] [place] [address] Jul, [facility] [address] [place] [id number] [address] [place] [id number] Jul, Paranoid schizophrenia F20.0 [facility] [address] [place] [id number] [address] [place] [id number] May, Paranoid schizophrenia F20.0 ; Posttraumatic stress disorder F43.10 ; Attention deficit hyperactivity disorder (ADHD), inattentive type, 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 and Borderline personality disorder F60.3 [facility] [address] [id number] [address] [place] [id number] May, [facility] [address] [id number] [address] [place] [address] May, Paranoid schizophrenia F20.0 [facility] [address] [id number] [address] [place] [address] May, Paranoid schizophrenia F20.0 ; Posttraumatic stress disorder F43.10 ; Attention deficit hyperactivity disorder (ADHD), inattentive type, 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 and Borderline personality disorder F60.3 [facility] [address] [id number] [address] [place] [id number] Apr, [facility] [address] [id number] [address] [place] [id number] Apr, Paranoid schizophrenia F20.0 ; Posttraumatic stress disorder F43.10 ; Attention deficit hyperactivity disorder (ADHD), inattentive type, 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 and Borderline personality disorder F60.3 [facility] [address] [id number] [address] [place] [id number] Apr, [facility] [address] [id number] [address] [place] [phone] Apr, Schizoaffective disorder, de pressive type F25.1 and Borderline personality disorder F60.3 [facility] [address] [id number] [address] [place] [address] Apr, Paranoid schizophrenia F20.0 ; Posttraumatic stress disorder F43.10 ; Attention deficit hyperactivity disorder (ADHD), inattentive type, 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 and Borderline personality disorder F60.3 [facility] [address] [id number] [address] [place] [id number] Apr, [facility] [address] [id number] [address] [place] [id number] Apr, Paranoid schizophrenia F20.0 ; Posttraumatic stress disorder F43.10 ; Attention deficit hyperactivity disorder (ADHD), inattentive type, 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 and Borderline personality disorder F60.3 [facility] [address] [id number] [address] [place] [id number] Apr, [facility] [address] [id number] [address] [place] [address] Mar, Paranoid schizophrenia F20.0 [facility] [address] [id number] [address] [place] [address] Mar, [facility] [address] [facility] [id number] [address] [place] [address] Mar, Paranoid schizophrenia F20.0 ; Posttraumatic stress disorder F43.10 ; Attention deficit hyperactivity disorder (ADHD), inattentive type, 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 and Borderline personality disorder F60.3 [facility] [address] [facility] [id number] [address] [place] [address] February, Paranoid schizophrenia F20.0 [facility] [address] [id number] [address] [place] [address] February, Paranoid schizophrenia F20.0 ; Posttraumatic stress disorder F43.10 ; Attention deficit hyperactivity disorder (ADHD), inattentive type, 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 and Borderline personality disorder F60.3 [facility] [address] [id number] [address] [place] [address] February, Paranoid schizophrenia F20.0 ; Posttraumatic stress disorder F43.10 ; Attention deficit hyperactivity disorder (ADHD), inattentive type, 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 and Borderline personality disorder F60.3 [facility] [address] [id number] [address] [place] [id number] February, [facility] [address] [id number] [address] [place] [phone] February, Paranoid schizophrenia F20.0 [facility] [address] [facility] [id number] [address] [place] [address] February, Paranoid schizophrenia F20.0 [facility] [address] [facility] [id number] [address] [place] [address] February, Paranoid schizophrenia F20.0 ; Posttraumatic stress disorder F43.10 ; Attention deficit hyperactivity disorder (ADHD), inattentive type, 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 and Borderline personality disorder F60.3 [facility] [address] [facility] [id number] [address] [place] [address] Jan, Paranoid schizophrenia F20.0 ; Posttraumatic stress disorder F43.10 ; Attention deficit hyperactivity disorder (ADHD), inattentive type, 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 and Borderline personality disorder F60.3 [facility] [address] [facility] [id number] [address] [place] [id number] Jan, Paranoid schizophrenia F20.0 [facility] [address] [facility] [id number] [address] [place] [address] Jan, Paranoid schizophrenia F20.0 [facility] [address] [id number] [address] [place] [address] Jan, Paranoid schizophrenia F20.0 ; Posttraumatic stress disorder F43.10 ; Attention deficit hyperactivity disorder (ADHD), inattentive type, 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 and Borderline personality disorder F60.3 [facility] [address] [facility] [id number] [address] [place] [address] Dec, [facility] [address] [facility] [id number] [address] [place] [address] Nov, Paranoid schizophrenia F20.0 ; Posttraumatic stress disorder F43.10 ; Attention deficit hyperactivity disorder (ADHD), inattentive type, 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 and Borderline personality disorder F60.3 [facility] [address] [facility] [id number] [address] [place] [address] Nov, [facility] [address] [facility] [id number] [address] [place] [address] Oct, Paranoid schizophrenia F20.0 [facility] [address] [id number] [address] [place] [address] Oct, Paranoid schizophrenia F20.0 ; Posttraumatic stress disorder F43.10 ; Attention deficit hyperactivity disorder (ADHD), inattentive type, 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 ; Borderline personality disorder F60.3 and Other intermediate manager (current) drug therapy Z79.899 [facility] [address] [id number] [address] [place] [id number] Oct, [facility] [address] [id number] [address] [place] [phone] Oct, [facility] [address] [id number] [address] [place] [address], [place] [address] Sep, [facility] [address] [id number] [address] [place] [address] Sep, Paranoid schizophrenia F20.0 ; Posttraumatic stress disorder F43.10 ; Attention deficit hyperactivity disorder (ADHD), inattentive type, 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 and Borderline personality disorder F60.3 [facility] [address] [id number] [address] [place] [id number] Sep, Paranoid schizophrenia F20.0 [facility] [address] [id number] [address] [place] [phone] Aug, Paranoid schizophrenia F20.0 ; Posttraumatic stress disorder F43.10 ; Attention deficit hyperactivity disorder (ADHD), inattentive type, 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 and Borderline personality disorder F60.3 [facility] [address] [id number] [address] [place] [id number] Aug, Paranoid schizophrenia F20.0 ; Posttraumatic stress disorder F43.10 ; Attention deficit hyperactivity disorder (ADHD), inattentive type, 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 and Borderline personality disorder F60.3 [facility] [address] [id number] [address] [place] [id number] 09 Aug, 2017 [facility] [address] [id number] [address] [place] [address] Jul, Paranoid schizophrenia F20.0 ; Posttraumatic stress disorder F43.10 ; Attention deficit hyperactivity disorder (ADHD), inattentive type, 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 and Borderline personality disorder F60.3 [facility] [address] [facility] [id number] [address] [place] [id number] Jul, Paranoid schizophrenia F20.0 [facility] [address] [id number] [address] [place] [address] Jul, Paranoid schizophrenia F20.0 ; Posttraumatic stress disorder F43.10 ; Attention deficit hyperactivity disorder (ADHD), inattentive type, 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 and Borderline personality disorder F60.3 [facility] [address] [id number] [address] [place] [address] Jun, Paranoid schizophrenia F20.0 ; Posttraumatic stress disorder F43.10 ; Attention deficit hyperactivity disorder (ADHD), inattentive type, 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 and Borderline personality disorder F60.3 [facility] [address] [facility] [id number] [address] [place] [address] May, Other intermediate manager (current) dr gabriel parra Z79.899 [facility] [address] [facility] [id number] [address] [place] [address] May, [facility] [address] [facility] [id number] [address] [place] [address] May, [facility] [address] [facility] [id number] [address] [place] [address] May, Attention deficit hyperactiv ity disorder (ADHD), inattentive type, mild F90.0 [facility] [address] [id number] [address] [place] [id number] May, [facility] [address] [facility] [id number] [address] [place] [address] May, Attention deficit hyperactiv ity disorder (ADHD), inattentive type, mild F90.0 [facility] [address] [facility] [id number] [address] [place] [address] May, Paranoid schizophrenia F20.0 ; Posttraumatic stress disorder F43.10 ; Attention deficit hyperactivity disorder (ADHD), inattentive type, 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 and Other snf (current) drug therapy Z79.899 [facility] [address] [id number] [address] [place] [address] Apr, Paranoid schizophrenia F20.0 [facility] [address] [id number] [address] [place] [id number] Apr, Paranoid schizophrenia F20.0 ; Posttraumatic stress disorder F43.10 and Attention deficit hyperactivity disorder (ADHD), inattentive type, 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 [facility] [address] [id number] [address] [place] [address] February, [facility] [address] [id number] [address] [place] [id number] February, Paranoid schizophrenia F20.0 ; Posttraumatic stress disorder F43.10 and Attention deficit hyperactivity disorder (ADHD), inattentive type, 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 [address] [id number] [address] [place] [address] [id number] Dec, Dental examination Z01.[address] [facility] [address] [id number] [address] [place] [address] [id number] Nov, Dental examination Z01.[address] [facility] [address] [id number] [address] [place] [address] [id number] 23 Feb, 2017 Dental examination Z01.[address] 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 [facility] [address] [facility] [id number] [address] [place] [address] Aug, Paranoid schizophrenia F20.0 ; Posttraumatic stress disorder F43.10 and Attention deficit hyperactivity disorder (ADHD), inattentive type, 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 [facility] [address] [facility] [id number] [address] [place] [address] Aug, Strep throat J02.0 and Cough R05 [facility] [address] [facility] [id number] [address] [place] [address] Aug, [facility] [address] [facility] [id number] [address] [place] [address] Jul, Paranoid schizophrenia F20.0 ; Posttraumatic stress disorder F43.10 and Attention deficit hyperactivity disorder (ADHD), inattentive type, 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 [address] [id number] [address] [place] [address] [id number] Jun, Dental examination Z01.20 [facility] [address] [id number] [address] [place] [id number] Jun, [facility] [address] [id number] [address] [place] [address] May, Paranoid schizophrenia F20.0 [facility] [address] [id number] [address] [place] [address] May, Paranoid schizophrenia F20.0 ; Posttraumatic stress disorder F43.10 and Attention deficit hyperactivity disorder (ADHD), inattentive type, 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 [facility] [address] [id number] [address] [place] [id number] May, [facility] [address] [id number] [address] [place] [id number] May, Paranoid schizophrenia F20.0 [facility] [address] [id number] [address] [place] [id number] May, [facility] [address] [id number] [address] [place] [id number] May, Paranoid schizophrenia F20.0 [facility] [address] [id number] [address] [place] [id number] May, Schizoaffective disorder, un specified F25.9 [facility] [address] [id number] [address] [place] [id number] May, Schizoaffective disorder, un specified F25.9 [facility] [address] [id number] [address] [place] [id number] May, [facility] [address] [id number] [place] [address] May, Paranoid schizophrenia F20.0 [facility] [address] [id number] [address] [place] [address], [place] [address] May, Paranoid schizophrenia F20.0 ; Posttraumatic stress disorder F43.10 and Attention deficit hyperactivity disorder (ADHD), inattentive type, 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 [facility] [address] [id number] [address] [place] [phone] Mar, [facility] [address] [id number] [address] [place] [address], [place] [address] Mar, Paranoid schizophrenia F20.0 ; Posttraumatic stress disorder F43.10 and Attention deficit hyperactivity disorder (ADHD), inattentive type, 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 [facility] [address] [id number] [address] [place] [address], [place] [address] Mar, Paranoid schizophrenia F20.0 [facility] [address] [id number] [address] [place] [address], [place] [address] Mar, Paranoid schizophrenia F20.0 ; Attention deficit hyperactivity disorder (ADHD), inattentive type, 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 and Posttraumatic stress disorder F43.10 [facility] [address] [id number] [address] [place] [address], [place] [address] Mar, [facility] [address] [id number] [address] [place] [id number] Mar, Paranoid schizophrenia F20.0 ; Posttraumatic stress disorder F43.10 and Attention deficit hyperactivity disorder (ADHD), inattentive type, 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 [facility] [address] [id number] [address] [place] [address], [place] [address] February, [facility] [address] [id number] [address] [place] [address], [place] [address] February, [facility] [address] [id number] [address] [place] [id number] February, [facility] [address] [id number] [address] [place] [id number] February, [facility] [address] [id number] [address] [place] [address] Jan, Paranoid schizophrenia F20.[address] [facility] [address] [id number] [address] [place] [address] [id number] Jan, Dental examination Z01.[address] [facility] [address] [id number] [address] [place] [address] [id number] Jan, Dental caries K02.[address] [facility] [address] [id number] [address] [place] [address] [id number] Jan, Dental examination Z01.[address] [facility] [address] [id number] [address] [place] [address] [id number] Dec, Encounter for dental examina tion Z01.20 [facility] [address] [id number] [address] [place] [id number] Dec, Paranoid schizophrenia F20.[address] 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 [facility] [address] [id number] [address] [place] [address] Nov, Schizoaffective disorder, un specified F25.9 [facility] [address] [id number] [address] [place] [address] Oct, Paranoid schizophrenia F20.0 [facility] [address] [id number] [address] [place] [address] Oct, [facility] [address] [facility] [id number] [address] [place] [address] Sep, Paranoid schizophrenia F20.0 ; Posttraumatic stress disorder F43.10 and Attention deficit hyperactivity disorder (ADHD), inattentive type, 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 [facility] [address] [id number] [address] [place] [address] Sep, [facility] [address] [id number] [address] [place] [address] Sep, Paranoid schizophrenia F20.0 ; Posttraumatic stress disorder F43.10 and Attention deficit hyperactivity disorder (ADHD), inattentive type, 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 [facility] [address] [id number] [address] [place] [address] Aug, Paranoid schizophrenia F20.0 [facility] [address] [facility] [id number] [address] [place] [address] Aug, [facility] [address] [facility] [id number] [address] [place] [address] Aug, Posttraumatic stress disorde r F43.10 ; Paranoid schizophrenia F20.0 and Attention deficit hyperactivity disorder (ADHD), inattentive type, 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 [facility] [address] [facility] [id number] [address] [place] [address] Jul, Bipolar disorder, unspecifie d F31.9 [facility] [address] [facility] [id number] [address] [place] [address] Jul, [facility] [address] [facility] [id number] [address] [place] [address] Jun, [facility] [address] [facility] [id number] [address] [place] [address] Jun, Schizoaffective disorder, ch ronic 295.72 ; Posttraumatic stress disorder 309.81 and Attention deficit disorder of childhood without mention of hyperactivity 314.00 [facility] [address] [facility] [id number] [address] [place] [address] May, [facility] [address] [id number] [address] [place] [address] May, [facility] [address] [id number] [address] [place] [address] May, Schizoaffective disorder, ch ronic 295.72 ; Posttraumatic stress disorder 309.81 ; Attention deficit disorder of childhood without mention of hyperactivity 314.00 and Bipolar disorder, unspecified 296.80 [facility] [address] [id number] [address] [place] [address] Apr, Schizoaffective disorder, ch ronic 295.72 [facility] [address] [id number] [address] [place] [address] Apr, [facility] [address] [id number] [address] [place] [address] Apr, Schizoaffective disorder, ch ronic 295.72 ; Posttraumatic stress disorder 309.81 and Attention deficit disorder of childhood without mention of hyperactivity 314.00 [facility] [address] [id number] [address] [place] [address] Mar, Disorganized schizophrenia, 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 [facility] [address] [id number] [address] [place] [address] Mar, [facility] [address] [id number] [address] [place] [address] Mar, [facility] [address] [facility] [id number] [address] [place] [address] Mar, [facility] [address] [id number] [address] [place] [address] Mar, [facility] [address] [facility] [id number] [address] [place] [address] February, Schizoaffective disorder, ch ronic 295.72 [facility] [address] [facility] [id number] [address] [place] [address] February, [facility] [place] [address] [id number] [address] [place] [address] February, Attention 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 ; Posttraumatic stress disorder 309.81 and Schizoaffective disorder, chronic 295.72 [facility] [place] [address] [id number] [address] [place] [address] Jan, [facility] [place] [address] [id number] [address] [place] [address] Jan, [facility] [address] [id number] [address] [place] [address] Jan, [facility] [address] [id number] [address] [place] [address] Dec, [facility] [address] [id number] [address] [place] [address] Dec, [facility] [address] [id number] [address] [place] [address] Dec, [facility] [address] [id number] [address] [place] [address] Dec, [facility] [address] [id number] [address] [place] [address] Dec, [facility] [address] [id number] [address] [place] [address] Dec, [facility] [address] [id number] [address] [place] [address] Dec, [facility] [address] [id number] [address] [place] [address] Dec, [facility] [address] [id number] [address] [place] [address] Nov, [facility] [address] [id number] [address] [place] [address] Nov, [facility] [place] [address] [id number] [address] [place] [address] [place] [address] Nov, 2014 [facility] [address] [id number] [address] [place] [address], [place] [address] Nov, 2014 [facility] [address] [id number] [address] [place] [address], [place] [address] Nov, 2014 [facility] [address] [id number] [address] [place] [address], [place] [address] Nov, 2014 [facility] [address] [id number] [address] [place] [address], [place] [address] Nov, 2014 [facility] [address] [id number] [address] [place] [address], [place] [address] Nov, 2014 [facility] [address] [id number] [address] [place] [address], [place] [address] Nov, [facility] [address] [id number] [address] [place] [address], [place] [address] Nov, [facility] [address] [id number] [address] [place] [address], [place] [address] Oct, [facility] [address] [id number] [address] [place] [address], [place] [address] Oct, [facility] [address] [id number] [address] [place] [id number] Oct, [facility] [address] [id number] [address] [place] [address], [place] [address] Oct, [facility] [address] [id number] [address] [place] [address] Oct, [facility] [address] [id number] [address] [place] [address], [place] [address] Oct, [facility] [address] [id number] [address] [place] [address], [place] [address] Oct, [facility] [address] [id number] [address] [place] [address], [place] [address] Sep, [facility] [address] [id number] [address] [place] [address], [place] [address] 17 Sep, 2014 [facility] [address] [id number] [address] [place] [address], [place] [address] 15 Sep, 2014 [facility] [address] [id number] [address] [place] [address], [place] [address] 15 Sep, 2014 [facility] [address] [id number] [address] [place] [address], [place] [address] Aug, [facility] [address] [id number] [address] [place] [address], [place] [address] Aug, [facility] [address] [id number] [address] [place] [address], [place] [address] Aug, [facility] [address] [id number] [address] [place] [address], [place] [address] Aug, [facility] [address] [id number] [address] [place] [address], [place] [address] Aug, [facility] [address] [id number] [address] [place] [address], [place] [address] Aug, [facility] [address] [id number] [address] [place] [address], [place] [address] Jul, [facility] [address] [id number] [address] [place] [address], [place] [address] 29 Jul, 2014 [facility] [address] [id number] [address] [place] [address], [place] [address] 24 Jul, 2014 [facility] [address] [id number] [address] [place] [address], [place] [address] 24 Jul, 2014 [facility] [address] [id number] [address] [place] [address], [place] [address] 15 Jul, 2014 [facility] [address] [id number] [address] [place] [address], [place] [address] 15 Jul, 2014 [facility] [address] [id number] [address] [place] [address] [place] [address] 27 Sep, 2013 [facility] [address] [id number] [facility] [place] [address] 27 Sep, 2013 [facility] [address] [id number] [facility] [place] [address] 26 Sep, 2013 [facility] [address] [id number] [address] [place] [address], [place] [address] 26 Sep, 2013 [facility] [address] [id number] [address] [place] [address], [place] [address] 26 Jun, 2013 [facility] [address] [id number] [address] [place] [address], [place] [address] 26 Jun, 2013 [facility] [address] [id number] [address] [place] [address], [place] [address] 16 Jun, 2013 [facility] [address] [id number] [address] [place] [address], [place] [address] 16 Jun, 2013 [facility] [address] [id number] [address] [place] [address], [place] [address] 16 Jun, 2013 [facility] [address] [id number] [address] [place] [address], [place] [address] 16 Jun, 2013 [facility] [address] [id number] [address] [place] [address], [place] [address] 04 Jun, 2013 [facility] [address] [id number] [address] [place] [address], [place] [address] May, 2013 [facility] [address] [id number] [address] [place] [address], [place] [address] May, [facility] [address] [id number] [address] [place] [address], [place] [address] May, 2013 [facility] [address] [id number] [address] [place] [address], [place] [address] May, 2013 [facility] [address] [id number] [address] [place] [address], [place] [address] May, 2013 [facility] [address] [id number] [facility] [place] [address] May, [facility] [address] [id number] [facility] [place] [address] May, [facility] [address] [id number] [address] [place] [address], [place] [address] May, [facility] [address] [id number] [address] [place] [address], [place] [address] May, [facility] [address] [id number] [address] [place] [address], [place] [address] May, [facility] [address] [id number] [address] [place] [address], [place] [address] Apr, [facility] [address] [id number] [address] [place] [address], [place] [address] Apr, [facility] [address] [id number] [address] [place] [address], [place] [address] Apr, [facility] [address] [id number] [address] [place] [address], [place] [address] Apr, [facility] [address] [id number] [address] [place] [address], [place] [address] Apr, [facility] [address] [id number] [address] [place] [address], [place] [address] Apr, [facility] [address] [id number] [address] [place] [address], [place] [address] Apr, [facility] [address] [id number] [address] [place] [address], [place] [address] Apr, [facility] [address] [id number] [address] [place] [address], [place] [address] Apr, [facility] [address] [id number] [address] [place] [address], [place] [address] Apr, [facility] [address] [id number] [address] [place] [address], [place] [address] Mar, [facility] [address] [id number] [facility] [place] [address] Mar, [facility] [address] [id number] [facility] [place] [address] 25 Mar, 2014 [facility] [address] [id number] [facility] [place] [address] 24 Mar, 2014 [facility] [address] [id number] [address] [place] [address], [place] [address] 20 Mar, 2014 [facility] [address] [id number] [address] [place] [address], [place] [address] 18 Mar, 2014 [facility] [address] [id number] [address] [place] [address], [place] [address] 18 Mar, 2014 [facility] [address] [id number] [address] [place] [address], [place] [address] 16 Mar, 2014 [facility] [address] [id number] [address] [place] [address], [place] [address] 16 Mar, 2014 [facility] [address] [id number] [address] [place] [address], [place] [address] 13 Mar, 2014 [facility] [address] [id number] [address] [place] [address], [place] [address] 13 Mar, 2014 [facility] [address] [id number] [address] [place] [address], [place] [address] 11 Mar, 2014 [facility] [address] [id number] [address] [place] [address], [place] [address] 11 Mar, 2014 [facility] [address] [id number] [address] [place] [address], [place] [address] 10 Mar, 2014 [facility] [address] [id number] [address] [place] [address], [place] [address] 09 Mar, 2014 [facility] [address] [id number] [address] [place] [address], [place] [address] 09 Mar, 2014 [facility] [address] [id number] [facility] [place] [address] Mar, [facility] [address] [id number] [address] [place] [address], [place] [address] Mar, [facility] [address] [id number] [address] [place] [address], [place] [address] Mar, [facility] [address] [id number] [address] [place] [address], [place] [address] Mar, [facility] [address] [id number] [address] [place] [address], [place] [address] February, [facility] [address] [id number] [address] [place] [address], [place] [address] February, [facility] [address] [id number] [address] [place] [address], [place] [address] February, [facility] [address] [id number] [address] [place] [address], [place] [address] February, [facility] [address] [id number] [address] [place] [address], [place] [address] February, [facility] [address] [id number] [address] [place] [address], [place] [address] February, [facility] [address] [id number] [address] [place] [address], [place] [address] February, [facility] [address] [id number] [address] [place] [address], [place] [address] February, [facility] [address] [id number] [address] [place] [address], [place] [address] February, [facility] [address] [id number] [address] [place] [address], [place] [address] February, [facility] [address] [id number] [address] [place] [address], [place] [address] February, [facility] [address] [id number] [address] [place] [address], [place] [address] February, [facility] [address] [id number] [address] [place] [address], [place] [address] February, [facility] [address] [id number] [address] [place] [address], [place] [address] February, [facility] [address] [id number] [address] [place] [address], [place] [address] February, [facility] [address] [id number] [address] [place] [address], [place] [address] February, [facility] [address] [id number] [address] [place] [address], [place] [address] February, [facility] [address] [id number] [address] [place] [address], [place] [address] February, [facility] [address] [id number] [address] [place] [address], [place] [address] February, [facility] [address] [id number] [address] [place] [address], [place] [address] February, [facility] [address] [id number] [address] [place] [address], [place] [address] February, [facility] [address] [id number] [address] [place] [address], [place] [address] Jan, [facility] [address] [id number] [address] [place] [address], [place] [address] Jan, [facility] [address] [id number] [address] [place] [address], [place] [address] Jan, [facility] [address] [id number] [address] [place] [address], [place] [address] Jan, [facility] [address] [id number] [address] [place] [address], [place] [address] Jan, [facility] [address] [id number] [address] [place] [address], [place] [address] Jan, [facility] [address] [id number] [address] [place] [address], [place] [address] 10 Jan, 2014 [facility] [address] [id number] [facility] [place] [address] 10 Jan, 2014 [facility] [address] [id number] [address] [place] [address], [place] [address] 21 Dec, 2013 [facility] [address] [id number] [address] [place] [address], [place] [address] 20 Dec, 2013 [facility] [address] [id number] [address] [place] [address], [place] [address] 20 Dec, 2013 [facility] [address] [id number] [address] [place] [address], [place] [address] 19 Dec, 2013 [facility] [address] [id number] [address] [place] [address], [place] [address] 19 Dec, 2013 [facility] [address] [id number] [address] [place] [address], [place] [address] 15 Dec, 2013 [facility] [address] [id number] [address] [place] [address], [place] [address] 15 Dec, 2013 [facility] [address] [id number] [address] [place] [address], [place] [address] 11 Dec, 2013 [facility] [address] [id number] [address] [place] [address], [place] [address] 10 Dec, 2013 [facility] [address] [id number] [address] [place] [address], [place] [address] 10 Dec, 2013 [facility] [address] [id number] [address] [place] [address], [place] [address] 18 Nov, 2013 [facility] [address] [id number] [address] [place] [address], [place] [address] 17 Nov, 2013 [facility] [address] [id number] [address] [place] [address], [place] [address] 17 Nov, 2013 [facility] [address] [id number] [address] [place] [address], [place] [address] 05 Nov, 2013 [facility] [address] [id number] [address] [place] [address], [place] [address] Nov, [facility] [address] [id number] [address] [place] [address], [place] [address] Oct, [facility] [address] [id number] [address] [place] [address], [place] [address] Oct, [facility] [address] [id number] [address] [place] [address], [place] [address] Oct, [facility] [address] [id number] [address] [place] [address], [place] [address] Sep, [facility] [address] [id number] [address] [place] [address], [place] [address] Sep, [facility] [address] [id number] [address] [place] [address], [place] [address] Sep, [facility] [address] [id number] [address] [place] [address], [place] [address] Sep, [facility] [address] [id number] [address] [place] [address], [place] [address] Aug, [facility] [address] [id number] [address] [place] [address], [place] [address] Aug, [facility] [address] [id number] [address] [place] [address], [place] [address] Jul, [facility] [address] [id number] [address] [place] [address], [place] [address] Jul, [facility] [address] [id number] [address] [place] [address], [place] [address] Jul, [facility] [address] [id number] [address] [place] [address], [place] [address] Jul, [facility] [address] [id number] [address] [place] [address], [place] [address] Jul, [facility] [address] [id number] [address] [place] [address], [place] [address] 25 Jun, 2013 [facility] [address] [id number] [address] [place] [address], [place] [address] 25 Jun, 2013 [facility] [address] [id number] [address] [place] [address], [place] [address] 19 Jun, 2013 [facility] [address] [id number] [address] [place] [address], [place] [address] 18 Jun, 2013 [facility] [address] [id number] [address] [place] [address], [place] [address] 16 Jun, 2013 [facility] [address] [id number] [address] [place] [address], [place] [address] 12 Jun, 2013 [facility] [address] [id number] [address] [place] [address], [place] [address] 11 Jun, 2013 [facility] [address] [id number] [address] [place] [address], [place] [address] May, [facility] [address] [id number] [address] [place] [address], [place] [address] May, [facility] [address] [id number] [address] [place] [address], [place] [address] Apr, [facility] [address] [id number] [address] [place] [address], [place] [address] Apr, [facility] [address] [id number] [address] [place] [address], [place] [address] Apr, [facility] [address] [id number] [address] [place] [address], [place] [address] Mar, [facility] [address] [id number] [address] [place] [address], [place] [address] Mar, [facility] [address] [id number] [address] [place] [address], [place] [address] February, [facility] [address] [id number] [address] [place] [address], [place] [address] February, [facility] [address] [id number] [address] [place] [address], [place] [address] February, [facility] [address] [id number] [address] [place] [address], [place] [address] February, [facility] [address] [id number] [address] [place] [address], [place] [address] Jan, [facility] [address] [id number] [address] [place] [address], [place] [address] Jan, [facility] [address] [id number] [address] [place] [address], [place] [address] 16 Jan, 2013 [facility] [address] [id number] [address] [place] [address], [place] [address] 29 Dec, [address] [facility] [address] [id number] [address] [place] [address], [place] [address] Dec, [facility] [address] [id number] [address] [place] [address], [place] [address] Dec, [facility] [address] [id number] [address] [place] [address], [place] [address] 08 Dec, [address] [facility] [address] [id number] [address] [place] [address], [place] [address] Nov, [facility] [place] [address] [id number] [address] [place] [address], [place] [address] Nov, [facility] [address] [id number] [address] [place] [address], [place] [address] Oct, [facility] [address] [id number] [address] [place] [address], [place] [address] Oct, [facility] [address] [id number] [address] [place] [address], [place] [address] Oct, [facility] [address] [id number] [address] [place] [address], [place] [address] Oct, [facility] [address] [id number] [address] [place] [address], [place] [address] Aug, [facility] [address] [id number] [address] [place] [address], [place] [address] Aug, [facility] [address] [id number] [address] [place] [address], [place] [address] Jun, [facility] [address] [id number] [address] [place] [address], [place] [address] May, [facility] [address] [id number] [address] [place] [address], [place] [address] May, [facility] [address] [id number] [address] [place] [address], [place] [address] Apr, [facility] [address] [id number] [address] [place] [address], [place] [address] Apr, [facility] [address] [id number] [address] [place] [address], [place] [address] Apr, [facility] [address] [id number] [address] [place] [address], [place] [address] Mar, [facility] [address] [id number] [address] [place] [address], [place] [address] Mar, [facility] [address] [id number] [address] [place] [address], [place] [address] Mar, [facility] [address] [id number] [address] [place] [address], [place] [address] Mar, [facility] [address] [id number] [address] [place] [address], [place] [address] Mar, [facility] [address] [id number] [address] [place] [address], [place] [address] February, [facility] [address] [id number] [address] [place] [address], [place] [address] February, [facility] [address] [id number] [address] [place] [address], [place] [address] February, [facility] [address] [id number] [address] [place] [address] February, [facility] [address] [id number] [address] [place] [address], [place] [address] February, [facility] [address] [id number] [address] [place] [address], [place] [address] February, [facility] [address] [id number] [address] [place] [address], [place] [address] February, [facility] [address] [id number] [address] [place] [address], [place] [address] 25 Jan, 2012 [facility] [address] [id number] [address] [place] [address], [place] [address] 18 Jan, 2012 [facility] [address] [id number] [address] [place] [address], [place] [address] 17 Jan, 2012 [facility] [address] [id number] [address] [place] [address], [place] [address] Jan, [facility] [address] [id number] [address] [place] [address], [place] [address] Jan, [facility] [address] [id number] [address] [place] [address], [place] [address] 04 Jan, [address] [facility] [address] [id number] [address] [place] [address], [place] [address] 30 Dec, 2011 [facility] [address] [id number] [address] [place] [address], [place] [address] 24 Dec, 2011 [facility] [address] [id number] [address] [place] [address], [place] [address] 20 Dec, 2011 [facility] [address] [id number] [address] [place] [address], [place] [address] 13 Dec, 2011 [facility] [address] [id number] [address] [place] [address], [place] [address] 06 Dec, 2011 [facility] [address] [id number] [address] [place] [address], [place] [address] 28 Nov, 2011 [facility] [address] [id number] [address] [place] [address], [place] [address] Nov, [facility] [address] [id number] [address] [place] [address], [place] [address] Nov, [facility] [address] [id number] [address] [place] [address], [place] [address] 14 Nov, 2011 [facility] [address] [id number] [address] [place] [address], [place] [address] Nov, [facility] [address] [id number] [address] [place] [address], [place] [address] Nov, [facility] [address] [id number] [address] [place] [address], [place] [address] Oct, [facility] [address] [id number] [address] [place] [address], [place] [address] Oct, [facility] [address] [id number] [address] [place] [address], [place] [address] Oct, [facility] [address] [id number] [address] [place] [address], [place] [address] Oct, [facility] [address] [id number] [address] [place] [address], [place] [address] Oct, [facility] [address] [id number] [address] [place] [address], [place] [address] Sep, [facility] [address] [id number] [address] [place] [address], [place] [address] Sep, [facility] [address] [id number] [address] [place] [address], [place] [address] Sep, [facility] [address] [id number] [address] [place] [address], [place] [address] Sep, [facility] [address] [id number] [address] [place] [address], [place] [address] Sep, [facility] [address] [id number] [address] [place] [address] Sep, [facility] [address] [id number] [address] [place] [address], [place] [address] Sep, [facility] [address] [id number] [address] [place] [address] Sep, [facility] [address] [id number] [address] [place] [address], [place] [address] Sep, [facility] [address] [id number] [address] [place] [address] Aug, [facility] [address] [id number] [address] [place] [address], [place] [address] Aug, [facility] [address] [id number] [address] [place] [address], [place] [address] Aug, [facility] [address] [id number] [address] [place] [address], [place] [address] Aug, [facility] [address] [id number] [address] [place] [address], [place] [address] Aug, [facility] [address] [id number] [address] [place] [address] Aug, [facility] [address] [id number] [address] [place] [address], [place] [address] Aug, [facility] [address] [id number] [address] [place] [address] Aug, [facility] [address] [id number] [address] [place] [address] Aug, [facility] [address] [id number] [address] [place] [address], [place] [address] Aug, [facility] [address] [id number] [address] [place] [address], [place] [address] Aug, [facility] [address] [id number] [address] [place] [address], [place] [address] Aug, [facility] [address] [id number] [address] [place] [address], [place] [address] Jul, [facility] [address] [id number] [address] [place] [address], [place] [address] Jul, [facility] [address] [id number] [address] [place] [address], [place] [address] Jul, [facility] [address] [id number] [address] [place] [address], [place] [address] Jul, [facility] [address] [id number] [address] [place] [address], [place] [address] Jul, [facility] [address] [id number] [address] [place] [address], [place] [address] Jul, [facility] [address] [id number] [address] [place] [address], [place] [address] Jul, [facility] [address] [id number] [address] [place] [address], [place] [address] Jul, [facility] [address] [id number] [address] [place] [address], [place] [address] Jul, [facility] [address] [id number] [address] [place] [address], [place] [address] Jul, [facility] [address] [id number] [address] [place] [address], [place] [address] Nov, [facility] [address] [id number] [address] [place] [address], [place] [address] Aug, [facility] [address] [id number] [address] [place] [address], [place] [address] Aug, [facility] [address] [id number] [address] [place] [address], [place] [address] Aug, [facility] [address] [id number] [address] [place] [address], [place] [address] Aug, [facility] [address] [id number] [address] [place] [address], [place] [address] Jul, IMMUNIZATIONS No Known Immunizations SOCIAL HISTORY [...]
--- OUTSIDE RECORDS SUMMARY | 2020-04-04 02:30 | XMS REPORT ---
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 Active 14027598 Problem Generalized anxiety disorder 300.02 A ctive 43216949 Problem Obsessive-compulsive disorders 300.3 Active 902790977 Problem Catatonic schizophrenia, 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 678011771 Problem Disorganized schizophrenia, 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 10452859 Problem Paranoid schizophrenia F20.0 Active 40764287 Problem Borderline personality disorder F60.3 Active 99317904 Problem Paranoid schizophrenia, unspecified condition 295.30 Active 26316977 Problem Schizoaffective disorder, depressive type F25.1 Active 72830296 Problem Bipolar disorder, unspecified 296.80 Active 69998071 Problem Schizoaffective disorder, unspecified F25.9 Active 27188622 Problem Attention deficit hyperactivity disorder (ADHD), inattentive type, 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 86522835 Problem Posttraumatic stress disorder F43.10 Active 28754137 Problem High risk medication use Z79.899 Activ e [id number] ALLERGIES No Information ENCOUNTERS Encounter Location Date Diagnosis [facility] [address] [facility] [id number] [address] [place] [id number] Jan, [facility] [address] [facility] [id number] [address] [place] [phone] Dec, Paranoid schizophrenia F20.0 ; Posttraumatic stress disorder F43.10 ; Attention deficit hyperactivity disorder (ADHD), inattentive type, 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 and Borderline personality disorder F60.3 [facility] [address] [facility] [id number] [address] [place] [id number] Dec, Paranoid schizophrenia F20.0 ; Posttraumatic stress disorder F43.10 ; Attention deficit hyperactivity disorder (ADHD), inattentive type, 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 and Borderline personality disorder F60.3 [facility] [address] [place] [id number] [address] [place] [phone] Oct, Paranoid schizophrenia F20.0 ; Posttraumatic stress disorder F43.10 ; Attention deficit hyperactivity disorder (ADHD), inattentive type, 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 and Borderline personality disorder F60.3 [facility] [address] [place] [place] [id number] [address] [place] [address] Oct, Paranoid schizophrenia F20.0 ; Posttraumatic stress disorder F43.10 ; Attention deficit hyperactivity disorder (ADHD), inattentive type, 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 and Borderline personality disorder F60.3 [facility] [address] [place] [place] [id number] [address] [place] [address] Aug, [facility] [address] [place] [id number] [place] [address] Aug, Paranoid schizophrenia F20.0 ; Posttraumatic stress disorder F43.10 ; Attention deficit hyperactivity disorder (ADHD), inattentive type, 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 and Borderline personality disorder F60.3 [facility] [address] [facility] [id number] [address] [place] [phone] Jul, Dry skin dermatitis L85.3 [facility] [address] [facility] [id number] [address] [place] [address] Jul, [facility] [address] [facility] [id number] [address] [place] [address] Jul, Paranoid schizophrenia F20.0 [facility] [address] [facility] [id number] [address] [place] [phone] May, Paranoid schizophrenia F20.0 ; Posttraumatic stress disorder F43.10 ; Attention deficit hyperactivity disorder (ADHD), inattentive type, 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 and Borderline personality disorder F60.3 [facility] [address] [facility] [id number] [address] [place] [phone] May, [facility] [address] [id number] [address] [address] May, Paranoid schizophrenia F20.0 [facility] [address] [id number] [address] [place] [address], [place] [address] May, Paranoid schizophrenia F20.0 ; Posttraumatic stress disorder F43.10 ; Attention deficit hyperactivity disorder (ADHD), inattentive type, 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 and Borderline personality disorder F60.3 [facility] [address] [id number] [address] [place] [address] Apr, [facility] [address] [id number] [address] [place] [address] Apr, Schizoaffective disorder, de pressive type F25.1 and Borderline personality disorder F60.3 [facility] [address] [id number] [address] [place] [id number] Apr, Paranoid schizophrenia F20.0 ; Posttraumatic stress disorder F43.10 ; Attention deficit hyperactivity disorder (ADHD), inattentive type, 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 and Borderline personality disorder F60.3 [facility] [address] [id number] [address] [place] [address] Apr, [facility] [address] [id number] [address] [place] [address] Apr, Paranoid schizophrenia F20.0 ; Posttraumatic stress disorder F43.10 ; Attention deficit hyperactivity disorder (ADHD), inattentive type, 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 and Borderline personality disorder F60.3 [facility] [address] [id number] [address] [place] [address] Apr, [facility] [address] [id number] [address] [place] [address] Mar, Paranoid schizophrenia F20.0 [facility] [address] [id number] [address] [place] [address] Mar, [facility] [address] [id number] [address] [place] [address] Mar, Paranoid schizophrenia F20.0 ; Posttraumatic stress disorder F43.10 ; Attention deficit hyperactivity disorder (ADHD), inattentive type, 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 and Borderline personality disorder F60.3 [facility] [address] [id number] [address] [place] [address] February, Paranoid schizophrenia F20.0 [facility] [address] [id number] [address] [place] [address] February, Paranoid schizophrenia F20.0 ; Posttraumatic stress disorder F43.10 ; Attention deficit hyperactivity disorder (ADHD), inattentive type, 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 and Borderline personality disorder F60.3 [facility] [address] [id number] [address] [place] [address] February, Paranoid schizophrenia F20.0 ; Posttraumatic stress disorder F43.10 ; Attention deficit hyperactivity disorder (ADHD), inattentive type, 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 and Borderline personality disorder F60.3 [facility] [address] [id number] [address] [place] [address] February, [facility] [address] [id number] [address] [place] [address] February, Paranoid schizophrenia F20.0 [facility] [address] [id number] [address] [place] [address] February, Paranoid schizophrenia F20.0 [facility] [address] [id number] [address] [place] [address] February, Paranoid schizophrenia F20.0 ; Posttraumatic stress disorder F43.10 ; Attention deficit hyperactivity disorder (ADHD), inattentive type, 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 and Borderline personality disorder F60.3 [facility] [address] [id number] [address] [place] [address] Jan, Paranoid schizophrenia F20.0 ; Posttraumatic stress disorder F43.10 ; Attention deficit hyperactivity disorder (ADHD), inattentive type, 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 and Borderline personality disorder F60.3 [facility] [address] [id number] [address] [place] [address] Jan, Paranoid schizophrenia F20.0 [facility] [address] [id number] [address] [place] [address] Jan, Paranoid schizophrenia F20.0 [facility] [address] [facility] [id number] [address] [place] [address] Jan, Paranoid schizophrenia F20.0 ; Posttraumatic stress disorder F43.10 ; Attention deficit hyperactivity disorder (ADHD), inattentive type, 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 and Borderline personality disorder F60.3 [facility] [address] [id number] [address] [place] [address] Dec, [facility] [address] [id number] [address] [place] [address] Nov, Paranoid schizophrenia F20.0 ; Posttraumatic stress disorder F43.10 ; Attention deficit hyperactivity disorder (ADHD), inattentive type, 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 and Borderline personality disorder F60.3 [facility] [address] [id number] [address] [place] [address] Nov, [facility] [address] [id number] [address] [place] [address] Oct, Paranoid schizophrenia F20.0 [facility] [address] [facility] [id number] [address] [place] [address] Oct, Paranoid schizophrenia F20.0 ; Posttraumatic stress disorder F43.10 ; Attention deficit hyperactivity disorder (ADHD), inattentive type, 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 ; Borderline personality disorder F60.3 and Other usp (current) drug therapy Z79.899 [facility] [address] [id number] [address] [place] [address] Oct, [facility] [address] [facility] [id number] [address] [place] [phone] Oct, [facility] [address] [id number] [address] [place] [address] Sep, [facility] [address] [id number] [address] [place] [address] Sep, Paranoid schizophrenia F20.0 ; Posttraumatic stress disorder F43.10 ; Attention deficit hyperactivity disorder (ADHD), inattentive type, 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 and Borderline personality disorder F60.3 [facility] [address] [facility] [id number] [address] [place] [address] Sep, Paranoid schizophrenia F20.0 [facility] [address] [id number] [address] [place] [address] Aug, Paranoid schizophrenia F20.0 ; Posttraumatic stress disorder F43.10 ; Attention deficit hyperactivity disorder (ADHD), inattentive type, 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 and Borderline personality disorder F60.3 [facility] [address] [facility] [id number] [address] [place] [address] Aug, Paranoid schizophrenia F20.0 ; Posttraumatic stress disorder F43.10 ; Attention deficit hyperactivity disorder (ADHD), inattentive type, 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 and Borderline personality disorder F60.3 [facility] [address] [id number] [address] [place] [address] Aug, [facility] [address] [facility] [id number] [address] [place] [address] Jul, Paranoid schizophrenia F20.0 ; Posttraumatic stress disorder F43.10 ; Attention deficit hyperactivity disorder (ADHD), inattentive type, 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 and Borderline personality disorder F60.3 [facility] [address] [id number] [address] [place] [id number] Jul, Paranoid schizophrenia F20.0 [facility] [address] [id number] [address] [place] [address] Jul, Paranoid schizophrenia F20.0 ; Posttraumatic stress disorder F43.10 ; Attention deficit hyperactivity disorder (ADHD), inattentive type, 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 and Borderline personality disorder F60.3 [facility] [address] [id number] [address] [place] [address] Jun, Paranoid schizophrenia F20.0 ; Posttraumatic stress disorder F43.10 ; Attention deficit hyperactivity disorder (ADHD), inattentive type, 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 and Borderline personality disorder F60.3 [facility] [address] [id number] [address] [place] [address] May, Other usp (current) dr ug therapy Z79.899 [facility] [address] [id number] [address] [place] [address] May, [facility] [address] [id number] [address] [place] [address] May, [facility] [address] [facility] [id number] [address] [place] [id number] May, Attention deficit hyperactiv ity disorder (ADHD), inattentive type, mild F90.0 [facility] [address] [facility] [id number] [address] [place] [address] May, [facility] [address] [id number] [address] [place] [address] May, Attention deficit hyperactiv ity disorder (ADHD), inattentive type, mild F90.0 [facility] [address] [id number] [address] [place] [address] May, Paranoid schizophrenia F20.0 ; Posttraumatic stress disorder F43.10 ; Attention deficit hyperactivity disorder (ADHD), inattentive type, 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 and Other usp (current) drug therapy Z79.899 [facility] [address] [id number] [address] [place] [address] Apr, Paranoid schizophrenia F20.0 [facility] [address] [id number] [address] [place] [address] Apr, Paranoid schizophrenia F20.0 ; Posttraumatic stress disorder F43.10 and Attention deficit hyperactivity disorder (ADHD), inattentive type, 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 [facility] [address] [id number] [address] [place] [address] February, [facility] [address] [id number] [address] [place] [address] February, Paranoid schizophrenia F20.0 ; Posttraumatic stress disorder F43.10 and Attention deficit hyperactivity disorder (ADHD), inattentive type, 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 [facility] [address] [id number] [address] [place] [address] February, Paranoid schizophrenia F20.0 ; Posttraumatic stress disorder F43.10 and Attention deficit hyperactivity disorder (ADHD), inattentive type, 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 [facility] [address] [id number] [address] [place] [address] Jan, Paranoid schizophrenia F20.0 ; Posttraumatic stress disorder F43.10 and Attention deficit hyperactivity disorder (ADHD), inattentive type, 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 [facility] [address] [id number] [address] [place] [id number] Dec, Dental examination Z01.20 [facility] [address] [id number] [address] [place] [address] [id number] Nov, Dental examination Z01.20 [facility] [address] [id number] [address] [place] [address] [id number] Nov, Dental examination Z01.20 [facility] [address] [id number] [address] [place] [address] [id number] Nov, Dental caries K02.9 [facility] [address] [id number] [address] [place] [address] Nov, High risk medication use Z79 .899 [facility] [address] [id number] [address] [place] [address] Nov, Paranoid schizophrenia F20.0 ; Posttraumatic stress disorder F43.10 ; Attention deficit hyperactivity disorder (ADHD), inattentive type, 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 and Borderline personality disorder in adult F60.3 [facility] [address] [id number] [address] [place] [address] [id number] Oct, Dental caries K02.9 [facility] [address] [id number] [address] [place] [address] Sep, Paranoid schizophrenia F20.0 ; Posttraumatic stress disorder F43.10 and Attention deficit hyperactivity disorder (ADHD), inattentive type, 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 [facility] [address] [id number] [address] [place] [address] Aug, Paranoid schizophrenia F20.0 ; Posttraumatic stress disorder F43.10 and Attention deficit hyperactivity disorder (ADHD), inattentive type, 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 [facility] [address] [id number] [address] [place] [address] Aug, Strep throat J02.0 and Cough R05 [facility] [address] [id number] [address] [place] [address] Aug, [facility] [address] [id number] [address] [place] [id number] 24 Jul, 2016 Paranoid schizophrenia F20.0 ; Posttraumatic stress disorder F43.10 and Attention deficit hyperactivity disorder (ADHD), inattentive type, 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 [facility] [address] [id number] [address] [place] [address] Jul, [facility] [address] [id number] [address] [place] [id number] Jun, Paranoid schizophrenia F20.0 ; Posttraumatic stress disorder F43.10 and Attention deficit hyperactivity disorder (ADHD), inattentive type, 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 [facility] [address] [id number] [address] [place] [address] [id number] Jun, Dental examination Z01.20 [facility] [address] [id number] [address] [place] [address] Jun, [facility] [address] [id number] [address] [place] [address] May, Paranoid schizophrenia F20.0 [facility] [address] [id number] [address] [place] [address] May, Paranoid schizophrenia F20.0 ; Posttraumatic stress disorder F43.10 and Attention deficit hyperactivity disorder (ADHD), inattentive type, 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 [facility] [address] [id number] [address] [place] [phone] May, [facility] [address] [id number] [address] [place] [address] May, Paranoid schizophrenia F20.0 [facility] [address] [id number] [address] [place] [phone] May, [facility] [address] [id number] [address] [place] [phone] May, Paranoid schizophrenia F20.0 [facility] [address] [id number] [address] [place] [phone] May, Schizoaffective disorder, un specified F25.9 [facility] [address] [id number] [address] [place] [address] May, Schizoaffective disorder, un specified F25.9 [facility] [address] [id number] [address] [place] [id number] May, [facility] [address] [id number] [address] [place] [address] May, Paranoid schizophrenia F20.0 [facility] [address] [id number] [address] [place] [phone] May, Paranoid schizophrenia F20.0 ; Posttraumatic stress disorder F43.10 and Attention deficit hyperactivity disorder (ADHD), inattentive type, 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 and Posttraumatic stress disorder F43.10 [facility] [address] [id number] [address] [place] [address] Mar, [facility] [address] [id number] [address] [place] [address], [place] [address] Mar, Paranoid schizophrenia F20.0 ; Posttraumatic stress disorder F43.10 and Attention deficit hyperactivity disorder (ADHD), inattentive type, 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 [facility] [address] [id number] [address] [place] [address], [place] [address] February, [facility] [address] [id number] [address] [place] [phone] February, [facility] [address] [id number] [address] [place] [address], [place] [address] February, [facility] [address] [id number] [address] [place] [address] February, [facility] [address] [id number] [address] [place] [address], [place] [address] Jan, Paranoid schizophrenia F20.0 [facility] [address] [id number] [address] [place] [address] [id number] Jan, Dental examination Z01.20 [facility] [address] [id number] [address] [place] [address] [id number] Jan, Dental caries K02.9 [facility] [address] [id number] [address] [place] [address] [id number] Jan, Dental examination Z01.20 [facility] [address] [id number] [address] [place] [address] [id number] Dec, Encounter for dental examina tion Z01.20 [facility] [address] [id number] [address] [place] [address] Dec, Paranoid schizophrenia F20.0 [facility] [address] [id number] [address] [place] [address] [id number] Dec, Dental examination Z01.20 [facility] [address] [id number] [address] [place] [phone] Dec, [facility] [address] [id number] [address] [place] [phone] Dec, Paranoid schizophrenia F20.0 ; Posttraumatic stress disorder F43.10 and Attention deficit hyperactivity disorder (ADHD), inattentive type, 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 [facility] [address] [id number] [address] [place] [phone] Nov, Schizoaffective disorder, un specified F25.9 [facility] [address] [id number] [address] [place] [address] Oct, Paranoid schizophrenia F20.0 [facility] [address] [id number] [address] [place] [address] Oct, [facility] [address] [id number] [address] [place] [address] Sep, Paranoid schizophrenia F20.0 ; Posttraumatic stress disorder F43.10 and Attention deficit hyperactivity disorder (ADHD), inattentive type, 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 [facility] [address] [id number] [address] [place] [phone] Sep, [facility] [address] [facility] [id number] [address] [place], [place] [address] Sep, Paranoid schizophrenia F20.0 ; Posttraumatic stress disorder F43.10 and Attention deficit hyperactivity disorder (ADHD), inattentive type, 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 [facility] [address] [facility] [id number] [address] [place] [address] Aug, Paranoid schizophrenia F20.0 [facility] [address] [facility] [id number] [address] [place] [address] Aug, [facility] [address] [facility] [id number] [address] [place] [address] Aug, Posttraumatic stress disorde r F43.10 ; Paranoid schizophrenia F20.0 and Attention deficit hyperactivity disorder (ADHD), inattentive type, 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 [facility] [address] [facility] [id number] [address] [place] [address] Jul, Bipolar disorder, unspecifie d F31.9 [facility] [address] [facility] [id number] [address] [place] [address] Jul, [facility] [address] [facility] [id number] [address] [place] [address] Jun, [facility] [address] [facility] [id number] [address] [place] [address] Jun, Schizoaffective disorder, ch ronic 295.72 ; Posttraumatic stress disorder 309.81 and Attention deficit disorder of childhood without mention of hyperactivity 314.00 [facility] [address] [facility] [id number] [address] [place] [address] May, [facility] [address] [facility] [id number] [address] [place] [address] May, [facility] [address] [facility] [id number] [address] [place] [address] May, Schizoaffective disorder, ch ronic 295.72 ; Posttraumatic stress disorder 309.81 ; Attention deficit disorder of childhood without mention of hyperactivity 314.00 and Bipolar disorder, unspecified 296.80 [facility] [address] [facility] [id number] [address] [place] [address] Apr, Schizoaffective disorder, ch ronic 295.72 [facility] [address] [facility] [id number] [address] [place] [address] Apr, [facility] [address] [id number] [address] [place] [address] Apr, Schizoaffective disorder, ch ronic 295.72 ; Posttraumatic stress disorder 309.81 and Attention deficit disorder of childhood without mention of hyperactivity 314.00 [facility] [address] [facility] [id number] [address] [place] [address] Mar, Disorganized schizophrenia, 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 [facility] [address] [facility] [id number] [address] [place] [address] Mar, [facility] [address] [facility] [id number] [address] [place] [address] Mar, [facility] [address] [facility] [id number] [address] [place] [address] Mar, [facility] [address] [facility] [id number] [address] [place] [address] Mar, [facility] [address] [facility] [id number] [address] [place] [address] February, Schizoaffective disorder, ch ronic 295.72 [facility] [address] [facility] [id number] [address] [place] [address] February, [facility] [address] [facility] [id number] [address] [place] [address] February, Attention 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 ; Posttraumatic stress disorder 309.81 and Schizoaffective disorder, chronic 295.72 [facility] [address] [id number] [address] [place] [address], [place] [address] 29 Jan, 2015 [facility] [address] [id number] [address] [place] [address], [place] [address] 14 Jan, 2015 [facility] [address] [id number] [address] [place] [address], [place] [address] Jan, [facility] [address] [id number] [address] [place] [address], [place] [address] Dec, [facility] [address] [id number] [address] [place] [address], [place] [address] Dec, [facility] [address] [id number] [address] [place] [address], [place] [address] Dec, [facility] [address] [id number] [address] [place] [address], [place] [address] Dec, [facility] [address] [id number] [address] [place] [address], [place] [address] Dec, [facility] [address] [id number] [address] [place] [address], [place] [address] Dec, [facility] [address] [id number] [address] [place] [address], [place] [address] Dec, [facility] [address] [id number] [address] [place] [address], [place] [address] Dec, [facility] [address] [id number] [address] [place] [address], [place] [address] Nov, [facility] [address] [id number] [address] [place] [address], [place] [address] Nov, [facility] [address] [id number] [address] [place] [address], [place] [address] Nov, [facility] [address] [id number] [address] [place] [address], [place] [address] Nov, [facility] [address] [id number] [address] [place] [address], [place] [address] Nov, [facility] [address] [id number] [address] [place] [address], [place] [address] Nov, [facility] [address] [id number] [address] [place] [address], [place] [address] Nov, [facility] [address] [id number] [address] [place] [address], [place] [address] Nov, [facility] [address] [id number] [address] [place] [address], [place] [address] Nov, [facility] [address] [id number] [address] [place] [address], [place] [address] Nov, [facility] [address] [id number] [address] [place] [address], [place] [address] Oct, [facility] [address] [id number] [address] [place] [address], [place] [address] Oct, [facility] [address] [id number] [address] [place] [address], [place] [address] Oct, [facility] [address] [id number] [address] [place] [address], [place] [address] Oct, [facility] [address] [id number] [address] [place] [address], [place] [address] Oct, [facility] [address] [id number] [address] [place] [address], [place] [address] Oct, [facility] [address] [id number] [address] [place] [address], [place] [address] Oct, [facility] [address] [id number] [address] [place] [address], [place] [address] Sep, [facility] [address] [id number] [address] [place] [address], [place] [address] Sep, [facility] [address] [id number] [address] [place] [address], [place] [address] Sep, [facility] [address] [id number] [address] [place] [address], [place] [address] 15 Sep, 2014 [facility] [address] [id number] [address] [place] [address], [place] [address] Aug, [facility] [address] [id number] [address] [place] [address], [place] [address] Aug, [facility] [address] [id number] [address] [place] [address], [place] [address] Aug, [facility] [address] [id number] [address] [place] [address], [place] [address] Aug, [facility] [address] [id number] [address] [place] [address], [place] [address] Aug, [facility] [address] [id number] [address] [place] [address], [place] [address] Aug, [facility] [address] [id number] [address] [place] [address], [place] [address] Jul, [facility] [address] [id number] [address] [place] [address], [place] [address] 29 Jul, 2014 [facility] [address] [id number] [address] [place] [address], [place] [address] 24 Jul, 2014 [facility] [address] [id number] [address] [place] [address], [place] [address] 24 Jul, 2014 [facility] [address] [id number] [address] [place] [address], [place] [address] 15 Jul, 2014 [facility] [address] [id number] [address] [place] [address], [place] [address] 15 Jul, 2014 [facility] [address] [id number] [address] [place] [address], [place] [address] 27 Jun, 2014 [facility] [address] [id number] [address] [place] [address], [place] [address] 27 Jun, 2014 [facility] [address] [id number] [address] [place] [address], [place] [address] Jun, 2013 [facility] [address] [id number] [facility] [place] [address] 26 Jun, 2013 [facility] [address] [id number] [facility] [place] [address] Jun, 2013 [facility] [address] [id number] [address] [place] [address], [place] [address] Jun, 2013 [facility] [address] [id number] [address] [place] [address], [place] [address] 16 Jun, 2013 [facility] [address] [id number] [address] [place] [address], [place] [address] 16 Jun, 2013 [facility] [address] [id number] [address] [place] [address], [place] [address] Jun, 2013 [facility] [address] [id number] [address] [place] [address], [place] [address] Jun, 2013 [facility] [address] [id number] [address] [place] [address], [place] [address] Jun, [facility] [address] [id number] [address] [place] [address], [place] [address] May, [facility] [address] [id number] [address] [place] [address], [place] [address] May, [facility] [address] [id number] [address] [place] [address], [place] [address] May, [facility] [address] [id number] [address] [place] [address], [place] [address] May, [facility] [address] [id number] [address] [place] [address], [place] [address] May, [facility] [address] [id number] [address] [place] [address], [place] [address] May, [facility] [address] [id number] [address] [place] [address], [place] [address] May, [facility] [address] [id number] [address] [place] [address], [place] [address] May, [facility] [address] [id number] [address] [place] [address], [place] [address] May, [facility] [address] [id number] [address] [place] [address], [place] [address] May, [facility] [address] [id number] [address] [place] [address], [place] [address] Apr, [facility] [address] [id number] [address] [place] [address], [place] [address] Apr, [facility] [address] [id number] [address] [place] [address], [place] [address] Apr, [facility] [address] [id number] [address] [place] [address], [place] [address] Apr, [facility] [address] [id number] [address] [place] [address], [place] [address] Apr, [facility] [address] [id number] [address] [place] [address], [place] [address] Apr, [facility] [address] [id number] [address] [place] [address], [place] [address] Apr, [facility] [address] [id number] [address] [place] [address], [place] [address] Apr, [facility] [address] [id number] [address] [place] [address], [place] [address] Apr, [facility] [address] [id number] [address] [place] [address], [place] [address] Apr, [facility] [address] [id number] [address] [place] [address], [place] [address] Mar, [facility] [address] [id number] [address] [place] [address], [place] [address] Mar, [facility] [address] [id number] [address] [place] [address], [place] [address] Mar, [facility] [address] [id number] [address] [place] [address], [place] [address] Mar, [facility] [address] [id number] [address] [place] [address], [place] [address] Mar, [facility] [address] [id number] [address] [place] [address], [place] [address] Mar, [facility] [address] [id number] [address] [place] [address], [place] [address] Mar, [facility] [address] [id number] [address] [place] [address], [place] [address] Mar, [facility] [address] [id number] [address] [place] [address], [place] [address] Mar, [facility] [address] [id number] [address] [place] [address], [place] [address] Mar, [facility] [address] [id number] [address] [place] [address], [place] [address] Mar, [facility] [address] [id number] [address] [place] [address], [place] [address] Mar, [facility] [address] [id number] [address] [place] [address], [place] [address] Mar, [facility] [address] [id number] [address] [place] [address], [place] [address] Mar, [facility] [address] [id number] [address] [place] [address], [place] [address] Mar, [facility] [address] [id number] [address] [place] [address], [place] [address] Mar, [facility] [address] [id number] [address] [place] [address], [place] [address] Mar, [facility] [address] [id number] [address] [place] [address], [place] [address] 09 Mar, 2014 [facility] [address] [id number] [address] [place] [address], [place] [address] Mar, [facility] [address] [id number] [facility] [address] Mar, [facility] [address] [id number] [address] [place] [address], [place] [address] February, [facility] [address] [id number] [address] [place] [address], [place] [address] February, [facility] [address] [id number] [address] [place] [address], [place] [address] February, [facility] [address] [id number] [address] [place] [address], [place] [address] February, [facility] [address] [id number] [address] [place] [address], [place] [address] February, [facility] [address] [id number] [address] [place] [address], [place] [address] February, [facility] [address] [id number] [address] [place] [address], [place] [address] February, [facility] [address] [id number] [address] [place] [address], [place] [address] February, [facility] [address] [id number] [address] [place] [address], [place] [address] February, [facility] [address] [id number] [address] [place] [address], [place] [address] February, [facility] [address] [id number] [address] [place] [address], [place] [address] February, [facility] [address] [id number] [address] [place] [address], [place] [address] February, [facility] [address] [id number] [address] [place] [address], [place] [address] February, [facility] [address] [id number] [address] [place] [address], [place] [address] February, [facility] [address] [id number] [address] [place] [address], [place] [address] February, [facility] [address] [id number] [address] [place] [address], [place] [address] February, [facility] [address] [id number] [address] [place] [address], [place] [address] February, [facility] [address] [id number] [address] [place] [address], [place] [address] February, [facility] [address] [id number] [address] [place] [address], [place] [address] February, [facility] [address] [id number] [address] [place] [address], [place] [address] February, [facility] [address] [id number] [address] [place] [address], [place] [address] February, [facility] [address] [id number] [address] [place] [address], [place] [address] Jan, [facility] [address] [id number] [address] [place] [address], [place] [address] Jan, [facility] [address] [id number] [address] [place] [address], [place] [address] Jan, [facility] [address] [id number] [address] [place] [address], [place] [address] Jan, [facility] [address] [id number] [address] [place] [address], [place] [address] Jan, [facility] [address] [id number] [address] [place] [address], [place] [address] Jan, [facility] [address] [id number] [address] [place] [address], [place] [address] Jan, [facility] [address] [id number] [address] [place] [address], [place] [address] Jan, [facility] [address] [id number] [address] [place] [address], [place] [address] Dec, [facility] [address] [id number] [facility] [address] 20 Dec, 2013 [facility] [address] [id number] [facility] [address] 20 Dec, 2013 [facility] [address] [id number] [facility] [address] 19 Dec, 2013 [facility] [address] [id number] [address] [place] [address], [place] [address] 19 Dec, 2013 [facility] [address] [id number] [address] [place] [address], [place] [address] 15 Dec, 2013 [facility] [address] [id number] [address] [place] [address], [place] [address] 15 Dec, 2013 [facility] [address] [id number] [address] [place] [address], [place] [address] 11 Dec, 2013 [facility] [address] [id number] [address] [place] [address], [place] [address] 10 Dec, 2013 [facility] [address] [id number] [address] [place] [address], [place] [address] 10 Dec, 2013 [facility] [place] [facility] [address] [id number] [address] [place] [address], [place] [address] 18 Nov, 2013 [facility] [place] [facility] [address] [id number] [address] [place] [address], [place] [address] 17 Nov, 2013 [facility] [place] [facility] [address] [id number] [address] [place] [address], [place] [address] Nov, [facility] [place] [facility] [address] [id number] [address] [place] [address], [place] [address] 05 Nov, 2013 [facility] [place] [facility] [address] [id number] [address] [place] [address], [place] [address] 05 Nov, 2013 [facility] [place] [facility] [address] [id number] [address] [place] [address], [place] [address] Oct, [facility] [place] [facility] [address] [id number] [address] [place] [address] Oct, [facility] [address] [id number] [address] [place] [address], [place] [address] Oct, [facility] [address] [id number] [address] [place] [address], [place] [address] Sep, [facility] [address] [id number] [address] [place] [address], [place] [address] Sep, [facility] [address] [id number] [address] [place] [address], [place] [address] Sep, [facility] [address] [id number] [address] [place] [address], [place] [address] Sep, [facility] [address] [id number] [address] [place] [address], [place] [address] Aug, [facility] [address] [id number] [address] [place] [address], [place] [address] Aug, [facility] [address] [id number] [address] [place] [address], [place] [address] Jul, [facility] [address] [id number] [address] [place] [address], [place] [address] Jul, [facility] [address] [id number] [address] [place] [address], [place] [address] Jul, [facility] [address] [id number] [address] [place] [address], [place] [address] Jul, [facility] [address] [id number] [address] [place] [address], [place] [address] Jul, [facility] [address] [id number] [address] [place] [address], [place] [address] Jun, [facility] [address] [id number] [address] [place] [address], [place] [address] Jun, [facility] [address] [id number] [address] [place] [address], [place] [address] 19 Jun, 2013 [facility] [place] [facility] [address] [id number] [address] [place] [address], [place] [address] 18 Jun, 2013 [facility] [address] [id number] [address] [place] [address], [place] [address] 16 Jun, 2013 [facility] [address] [id number] [address] [place] [address], [place] [address] 12 Jun, 2013 [facility] [address] [id number] [address] [place] [address], [place] [address] 11 Jun, 2013 [facility] [address] [id number] [address] [place] [address], [place] [address] 30 May, 2013 [facility] [address] [id number] [address] [place] [address], [place] [address] May, [facility] [address] [id number] [address] [place] [address], [place] [address] Apr, [facility] [address] [id number] [address] [place] [address], [place] [address] Apr, [facility] [address] [id number] [address] [place] [address], [place] [address] Apr, [facility] [address] [id number] [address] [place] [address], [place] [address] Mar, [facility] [address] [id number] [address] [place] [address], [place] [address] Mar, [facility] [address] [id number] [address] [place] [address], [place] [address] February, [facility] [address] [id number] [address] [place] [address], [place] [address] February, [facility] [address] [id number] [address] [place] [address], [place] [address] February, [facility] [address] [id number] [address] [place] [address], [place] [address] February, [facility] [address] [id number] [address] [place] [address], [place] [address] 19 Jan, 2013 [facility] [address] [id number] [address] [place] [address], [place] [address] 17 Jan, 2013 [facility] [address] [id number] [address] [place] [address], [place] [address] 16 Jan, 2013 [facility] [address] [id number] [address] [place] [address], [place] [address] 29 Dec, 2012 [facility] [address] [id number] [address] [place] [address], [place] [address] Dec, [facility] [address] [id number] [address] [place] [address], [place] [address] Dec, [facility] [address] [id number] [address] [place] [address], [place] [address] 08 Dec, 2012 [facility] [address] [id number] [address] [place] [address], [place] [address] Nov, [facility] [address] [id number] [address] [place] [address], [place] [address] Nov, [facility] [address] [id number] [address] [place] [address], [place] [address] Oct, [facility] [address] [id number] [address] [place] [address], [place] [address] Oct, [facility] [address] [id number] [address] [place] [address], [place] [address] Oct, [facility] [address] [id number] [address] [place] [address], [place] [address] Oct, [facility] [address] [id number] [address] [place] [address], [place] [address] Aug, [facility] [address] [id number] [address] [place] [address], [place] [address] Aug, [facility] [address] [id number] [address] [place] [address], [place] [address] 18 Jun, 2012 [facility] [address] [id number] [facility] [address] May, [facility] [address] [id number] [address] [place] [address], [place] [address] May, [facility] [address] [id number] [address] [place] [address], [place] [address] Apr, [facility] [address] [id number] [address] [place] [address], [place] [address] Apr, [facility] [address] [id number] [address] [place] [address], [place] [address] Apr, [facility] [address] [id number] [address] [place] [address], [place] [address] Mar, [facility] [address] [id number] [address] [place] [address], [place] [address] Mar, [facility] [address] [id number] [address] [place] [address], [place] [address] Mar, [facility] [address] [id number] [address] [place] [address], [place] [address] Mar, [facility] [address] [id number] [address] [place] [address], [place] [address] Mar, [facility] [address] [id number] [address] [place] [address], [place] [address] February, [facility] [address] [id number] [address] [place] [address], [place] [address] February, [facility] [address] [id number] [address] [place] [address], [place] [address] February, [facility] [address] [id number] [address] [place] [address], [place] [address] February, [facility] [address] [id number] [address] [place] [address], [place] [address] February, [facility] [address] [id number] [address] [place] [address], [place] [address] February, [facility] [address] [id number] [address] [place] [address], [place] [address] February, [facility] [address] [id number] [address] [place] [address], [place] [address] Jan, [facility] [address] [id number] [address] [place] [address], [place] [address] Jan, [facility] [address] [id number] [address] [place] [address], [place] [address] 17 Jan, 2012 [facility] [address] [id number] [address] [place] [address], [place] [address] Jan, [facility] [address] [id number] [address] [place] [address], [place] [address] Jan, [facility] [address] [id number] [address] [place] [address], [place] [address] Jan, [facility] [address] [id number] [address] [place] [address], [place] [address] 30 Dec, 2011 [facility] [address] [id number] [address] [place] [address], [place] [address] 24 Dec, 2011 [facility] [address] [id number] [address] [place] [address], [place] [address] Dec, [facility] [address] [id number] [address] [place] [address], [place] [address] Dec, [facility] [address] [id number] [address] [place] [address], [place] [address] Dec, [facility] [address] [id number] [address] [place] [address], [place] [address] Nov, [facility] [address] [id number] [address] [place] [address], [place] [address] Nov, [facility] [address] [id number] [address] [place] [address], [place] [address] Nov, [facility] [address] [id number] [address] [place] [address], [place] [address] 14 Nov, 2011 [facility] [address] [id number] [address] [place] [address], [place] [address] 10 Nov, 2011 [facility] [address] [id number] [address] [place] [address], [place] [address] Nov, [facility] [address] [id number] [address] [place] [address], [place] [address] Oct, [facility] [address] [id number] [address] [place] [address], [place] [address] Oct, [facility] [address] [id number] [address] [place] [address], [place] [address] Oct, [facility] [address] [id number] [address] [place] [address], [place] [address] Oct, [facility] [address] [id number] [address] [place] [address], [place] [address] Oct, [facility] [address] [id number] [address] [place] [address], [place] [address] Sep, [facility] [address] [id number] [address] [place] [address], [place] [address] Sep, [facility] [address] [id number] [address] [place] [address], [place] [address] Sep, [facility] [address] [id number] [address] [place] [address], [place] [address] 14 Sep, 2011 [facility] [address] [id number] [address] [place] [address], [place] [address] 14 Sep, 2011 [facility] [address] [id number] [address] [place] [address], [place] [address] 13 Sep, 2011 [facility] [address] [id number] [address] [place] [address], [place] [address] 12 Sep, 2011 [facility] [address] [id number] [address] [place] [address], [place] [address] Sep, [facility] [address] [id number] [address] [place] [address], [place] [address] Sep, [facility] [address] [id number] [address] [place] [address], [place] [address] Aug, [facility] [address] [id number] [address] [place] [address], [place] [address] Aug, [facility] [address] [id number] [address] [place] [address], [place] [address] Aug, [facility] [address] [id number] [address] [place] [address], [place] [address] Aug, [facility] [address] [id number] [address] [place] [address], [place] [address] Aug, [facility] [address] [id number] [address] [place] [address], [place] [address] Aug, [facility] [address] [id number] [address] [place] [address], [place] [address] Aug, [facility] [address] [id number] [address] [place] [address], [place] [address] Aug, [facility] [address] [id number] [address] [place] [address], [place] [address] Aug, [facility] [address] [id number] [address] [place] [address], [place] [address] Aug, [facility] [address] [id number] [address] [place] [address], [place] [address] Aug, [facility] [address] [id number] [address] [place] [address], [place] [address] Aug, [facility] [address] [id number] [address] [place] [address], [place] [address] Jul, [facility] [address] [id number] [address] [place] [address], [place] [address] Jul, [facility] [address] [id number] [address] [place] [address] Jul, [facility] [address] [id number] [address] [place] [address] Jul, [facility] [address] [id number] [address] [place] [address] Jul, [facility] [address] [id number] [address] [place] [address] Jul, [facility] [address] [id number] [address] [place] [address] Jul, [facility] [address] [id number] [address] [place] [address] Jul, [facility] [address] [id number] [address] [place] [address] Jul, [facility] [address] [id number] [address] [place] [address] Jul, [facility] [address] [id number] [address] [place] [address] Nov, [facility] [address] [id number] [address] [place] [address] Aug, [facility] [address] [id number] [address] [place] [address] Aug, [facility] [address] [id number] [address] [place] [address] Aug, [facility] [address] [id number] [address] [place] [address] Aug, [facility] [address] [id number] [address] [place] [id number] Jul, IMMUNIZATIONS No Known Immunizations SOCIAL HISTORY Never Assessed REASON FOR VISIT EMR-[facility] [place] PLAN OF CARE [...] [place] 01/30/2018-02/10/20 08 Hospitalization History [facility] 05/04/18-
--- OUTSIDE RECORDS SUMMARY | 2020-04-04 02:31 | XMS REPORT ---
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 Active 28977347 Problem Generalized anxiety disorder 300.02 A ctive 07297492 Problem Obsessive-compulsive disorders 300.3 Active 443265388 Problem Catatonic schizophrenia, 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 341082869 Problem Disorganized schizophrenia, 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 80624825 Problem Paranoid schizophrenia F20.0 Active 55712982 Problem Borderline personality disorder F60.3 Active 46875831 Problem Paranoid schizophrenia, unspecified condition 295.30 Active 51157155 Problem Schizoaffective disorder, depressive type F25.1 Active 86338171 Problem Bipolar disorder, unspecified 296.80 Active 64203909 Problem Schizoaffective disorder, unspecified F25.9 Active 01542582 Problem Attention deficit hyperactivity disorder (ADHD), inattentive type, 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 26927914 Problem Posttraumatic stress disorder F43.10 Active 96088364 Problem High risk medication use Z79.899 Activ e [id number] ALLERGIES No Information ENCOUNTERS Encounter Location Date Diagnosis [facility] [address] [facility] [id number] [address] [place] [phone] Jan, [facility] [address] [facility] [id number] [address] [place] [phone] Dec, Paranoid schizophrenia F20.0 ; Posttraumatic stress disorder F43.10 ; Attention deficit hyperactivity disorder (ADHD), inattentive type, 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 and Borderline personality disorder F60.3 [facility] [address] [facility] [id number] [address] [place] [phone] Dec, Paranoid schizophrenia F20.0 ; Posttraumatic stress disorder F43.10 ; Attention deficit hyperactivity disorder (ADHD), inattentive type, 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 and Borderline personality disorder F60.3 [facility] [address] [place] [id number] [address] [place] [phone] Oct, Paranoid schizophrenia F20.0 ; Posttraumatic stress disorder F43.10 ; Attention deficit hyperactivity disorder (ADHD), inattentive type, 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 and Borderline personality disorder F60.3 [facility] [address] [place] [id number] [address] [place] [phone] Oct, Paranoid schizophrenia F20.0 ; Posttraumatic stress disorder F43.10 ; Attention deficit hyperactivity disorder (ADHD), inattentive type, 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 and Borderline personality disorder F60.3 [facility] [address] [place] [place] [id number] [address] [place] [phone] Aug, [facility] [address] [id number] [place] [phone] Aug, Paranoid schizophrenia F20.0 ; Posttraumatic stress disorder F43.10 ; Attention deficit hyperactivity disorder (ADHD), inattentive type, 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 and Borderline personality disorder F60.3 [facility] [address] [facility] [id number] [address] [place] [phone] Jul, Dry skin dermatitis L85.3 [facility] [address] [facility] [id number] [address] [place] [phone] Jul, [facility] [address] [facility] [id number] [address] [place] [phone] Jul, Paranoid schizophrenia F20.0 [facility] [address] [facility] [id number] [address] [place] [phone] May, Paranoid schizophrenia F20.0 ; Posttraumatic stress disorder F43.10 ; Attention deficit hyperactivity disorder (ADHD), inattentive type, 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 and Borderline personality disorder F60.3 [facility] [address] [facility] [id number] [address] [place] [phone] May, [facility] [address] [id number] [place] [address] May, Paranoid schizophrenia F20.0 [facility] [address] [id number] [address] [place] [address], [place] [address] May, Paranoid schizophrenia F20.0 ; Posttraumatic stress disorder F43.10 ; Attention deficit hyperactivity disorder (ADHD), inattentive type, 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 and Borderline personality disorder F60.3 [facility] [address] [id number] [facility] [place] [address] Apr, [facility] [address] [id number] [address] [place] [address], [place] [address] Apr, Paranoid schizophrenia F20.0 ; Posttraumatic stress disorder F43.10 ; Attention deficit hyperactivity disorder (ADHD), inattentive type, 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 and Borderline personality disorder F60.3 [facility] [address] [id number] [address] [place] [phone] Apr, [facility] [address] [id number] [address] [place] [phone] Apr, Schizoaffective disorder, de pressive type F25.1 and Borderline personality disorder F60.3 [facility] [address] [id number] [address] [place] [phone] Apr, Paranoid schizophrenia F20.0 ; Posttraumatic stress disorder F43.10 ; Attention deficit hyperactivity disorder (ADHD), inattentive type, 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 and Borderline personality disorder F60.3 [facility] [address] [id number] [address] [place] [phone] Apr, [facility] [address] [id number] [address] [place] [phone] Apr, Paranoid schizophrenia F20.0 ; Posttraumatic stress disorder F43.10 ; Attention deficit hyperactivity disorder (ADHD), inattentive type, 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 and Borderline personality disorder F60.3 [facility] [address] [id number] [address] [place] [phone] Apr, [facility] [address] [id number] [address] [place] [phone] Mar, Paranoid schizophrenia F20.0 [facility] [address] [id number] [address] [place] [phone] Mar, [facility] [address] [id number] [address] [place] [phone] Mar, Paranoid schizophrenia F20.0 ; Posttraumatic stress disorder F43.10 ; Attention deficit hyperactivity disorder (ADHD), inattentive type, 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 and Borderline personality disorder F60.3 [facility] [address] [id number] [address] [place] [phone] February, Paranoid schizophrenia F20.0 [facility] [address] [id number] [address] [place] [phone] February, Paranoid schizophrenia F20.0 ; Posttraumatic stress disorder F43.10 ; Attention deficit hyperactivity disorder (ADHD), inattentive type, 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 and Borderline personality disorder F60.3 [facility] [address] [id number] [address] [place] [phone] February, Paranoid schizophrenia F20.0 ; Posttraumatic stress disorder F43.10 ; Attention deficit hyperactivity disorder (ADHD), inattentive type, 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 and Borderline personality disorder F60.3 [facility] [address] [id number] [address] [place] [phone] February, [facility] [address] [id number] [address] [place] [phone] February, Paranoid schizophrenia F20.0 [facility] [address] [id number] [address] [place] [phone] February, Paranoid schizophrenia F20.0 [facility] [address] [id number] [address] [place] [phone] February, Paranoid schizophrenia F20.0 ; Posttraumatic stress disorder F43.10 ; Attention deficit hyperactivity disorder (ADHD), inattentive type, 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 and Borderline personality disorder F60.3 [facility] [address] [id number] [address] [place] [phone] Jan, Paranoid schizophrenia F20.0 ; Posttraumatic stress disorder F43.10 ; Attention deficit hyperactivity disorder (ADHD), inattentive type, 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 and Borderline personality disorder F60.3 [facility] [address] [id number] [address] [place] [phone] Jan, Paranoid schizophrenia F20.0 [facility] [address] [id number] [address] [place] [phone] Jan, Paranoid schizophrenia F20.0 [facility] [address] [facility] [id number] [address] [place] [phone] Jan, Paranoid schizophrenia F20.0 ; Posttraumatic stress disorder F43.10 ; Attention deficit hyperactivity disorder (ADHD), inattentive type, 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 and Borderline personality disorder F60.3 [facility] [address] [id number] [address] [place] [phone] Dec, [facility] [address] [id number] [address] [place] [phone] Nov, Paranoid schizophrenia F20.0 ; Posttraumatic stress disorder F43.10 ; Attention deficit hyperactivity disorder (ADHD), inattentive type, 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 and Borderline personality disorder F60.3 [facility] [address] [id number] [address] [place] [phone] Nov, [facility] [address] [id number] [address] [place] [phone] Oct, Paranoid schizophrenia F20.0 [facility] [address] [facility] [id number] [address] [place] [phone] Oct, Paranoid schizophrenia F20.0 ; Posttraumatic stress disorder F43.10 ; Attention deficit hyperactivity disorder (ADHD), inattentive type, 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10 ; Attention deficit hyperactivity disorder (ADHD), inattentive type, 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 and Borderline personality disorder F60.3 [facility] [address] [facility] [id number] [address] [place] [phone] Sep, Paranoid schizophrenia F20.0 [facility] [address] [id number] [address] [place] [phone] Aug, Paranoid schizophrenia F20.0 ; Posttraumatic stress disorder F43.10 ; Attention deficit hyperactivity disorder (ADHD), inattentive type, 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 and Borderline personality disorder F60.3 [facility] [address] [facility] [id number] [address] [place] [phone] Aug, Paranoid schizophrenia F20.0 ; Posttraumatic stress disorder F43.10 ; Attention deficit hyperactivity disorder (ADHD), inattentive type, 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 and Borderline personality disorder F60.3 [facility] [address] [id number] [address] [place] [phone] Aug, [facility] [address] [facility] [id number] [address] [place] [phone] Jul, Paranoid schizophrenia F20.0 ; Posttraumatic stress disorder F43.10 ; Attention deficit hyperactivity disorder (ADHD), inattentive type, 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 and Borderline personality disorder F60.3 [facility] [address] [id number] [address] [place] [phone] Jul, Paranoid schizophrenia F20.0 [facility] [address] [id number] [address] [place] [phone] Jul, Paranoid schizophrenia F20.0 ; Posttraumatic stress disorder F43.10 ; Attention deficit hyperactivity disorder (ADHD), inattentive type, 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 and Borderline personality disorder F60.3 [facility] [address] [id number] [address] [place] [phone] Jun, Paranoid schizophrenia F20.0 ; Posttraumatic stress disorder F43.10 ; Attention deficit hyperactivity disorder (ADHD), inattentive type, 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 and Borderline personality disorder F60.3 [facility] [address] [id number] [address] [place] [phone] May, Other alf (current) dr ug therapy Z79.899 [facility] [address] [id number] [address] [place] [phone] May, [facility] [address] [id number] [address] [place] [phone] May, [facility] [address] [facility] [id number] [address] [place] [phone] May, Attention deficit hyperactiv ity disorder (ADHD), inattentive type, mild F90.0 [facility] [address] [facility] [id number] [address] [place] [phone] May, [facility] [address] [id number] [address] [place] [phone] May, Attention deficit hyperactiv ity disorder (ADHD), inattentive type, mild F90.0 [facility] [address] [id number] [address] [place] [phone] May, Paranoid schizophrenia F20.0 ; Posttraumatic stress disorder F43.10 ; Attention deficit hyperactivity disorder (ADHD), inattentive type, 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 and Other alf (current) drug therapy Z79.899 [facility] [address] [id number] [address] [place] [phone] Apr, Paranoid schizophrenia F20.0 [facility] [address] [id number] [address] [place] [phone] Apr, Paranoid schizophrenia F20.0 ; Posttraumatic stress disorder F43.10 and Attention deficit hyperactivity disorder (ADHD), inattentive type, 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 [facility] [address] [id number] [address] [place] [phone] February, [facility] [address] [id number] [address] [place] [phone] February, Paranoid schizophrenia F20.0 ; Posttraumatic stress disorder F43.10 and Attention deficit hyperactivity disorder (ADHD), inattentive type, 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 [facility] [address] [id number] [address] [place] [phone] February, Paranoid schizophrenia F20.0 ; Posttraumatic stress disorder F43.10 and Attention deficit hyperactivity disorder (ADHD), inattentive type, 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 [facility] [address] [id number] [address] [place] [phone] Jan, Paranoid schizophrenia F20.0 ; Posttraumatic stress disorder F43.10 and Attention deficit hyperactivity disorder (ADHD), inattentive type, 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 [facility] [address] [id number] [address] [place] [id number] Dec, Dental examination Z01.20 [facility] [address] [id number] [address] [place] [address] [id number] Nov, Dental examination Z01.20 [facility] [address] [id number] [address] [place] [address] [id number] Nov, Dental examination Z01.20 [facility] [address] [id number] [address] [place] [address] [id number] Nov, Dental caries K02.9 [facility] [address] [id number] [address] [place] [phone] Nov, High risk medication use Z79 .899 [facility] [address] [id number] [address] [place] [phone] Nov, Paranoid schizophrenia F20.0 ; Posttraumatic stress disorder F43.10 ; Attention deficit hyperactivity disorder (ADHD), inattentive type, 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 and Borderline personality disorder in adult F60.3 [facility] [address] [id number] [address] [place] [address] [id number] Oct, Dental caries K02.9 [facility] [address] [id number] [address] [place] [phone] Sep, Paranoid schizophrenia F20.0 ; Posttraumatic stress disorder F43.10 and Attention deficit hyperactivity disorder (ADHD), inattentive type, 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 [facility] [address] [id number] [address] [place] [phone] Aug, Paranoid schizophrenia F20.0 ; Posttraumatic stress disorder F43.10 and Attention deficit hyperactivity disorder (ADHD), inattentive type, 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 [facility] [address] [id number] [address] [place] [phone] Aug, Strep throat J02.0 and Cough R05 [facility] [address] [id number] [address] [place] [phone] Aug, [facility] [address] [id number] [address] [place] [phone] 24 Jul, 2016 Paranoid schizophrenia F20.0 ; Posttraumatic stress disorder F43.10 and Attention deficit hyperactivity disorder (ADHD), inattentive type, 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 [facility] [address] [id number] [address] [place] [phone] Jul, [facility] [address] [id number] [address] [place] [phone] Jun, Paranoid schizophrenia F20.0 ; Posttraumatic stress disorder F43.10 and Attention deficit hyperactivity disorder (ADHD), inattentive type, 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 [facility] [address] [id number] [address] [place] [address] [id number] Jun, Dental examination Z01.20 [facility] [address] [id number] [address] [place] [phone] Jun, [facility] [address] [id number] [address] [place] [phone] May, Paranoid schizophrenia F20.0 [facility] [address] [id number] [address] [place] [phone] May, Paranoid schizophrenia F20.0 ; Posttraumatic stress disorder F43.10 and Attention deficit hyperactivity disorder (ADHD), inattentive type, 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 [facility] [address] [id number] [address] [place] [phone] May, [facility] [address] [id number] [address] [place] [phone] May, Paranoid schizophrenia F20.0 [facility] [address] [id number] [address] [place] [phone] May, [facility] [address] [id number] [address] [place] [phone] May, Paranoid schizophrenia F20.0 [facility] [address] [id number] [address] [place] [phone] May, Schizoaffective disorder, un specified F25.9 [facility] [address] [id number] [address] [place] [phone] May, Schizoaffective disorder, un specified F25.9 [facility] [address] [id number] [address] [place] [phone] May, [facility] [address] [id number] [address] [place] [phone] May, Paranoid schizophrenia F20.0 [facility] [address] [id number] [address] [place] [phone] May, Paranoid schizophrenia F20.0 ; Posttraumatic stress disorder F43.10 and Attention deficit hyperactivity disorder (ADHD), inattentive type, 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 [facility] [address] [id number] [address] [place] [address], [place] [phone] Mar, [facility] [address] [id number] [facility] [place] [phone] Mar, Paranoid schizophrenia F20.0 ; Posttraumatic stress disorder F43.10 and Attention deficit hyperactivity disorder (ADHD), inattentive type, 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 [facility] [address] [id number] [address] [place] [address], [place] [phone] Mar, Paranoid schizophrenia F20.0 [facility] [address] [id number] [address] [place] [address], [place] [phone] Mar, Paranoid schizophrenia F20.0 ; Attention deficit hyperactivity disorder (ADHD), inattentive type, 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 and Posttraumatic stress disorder F43.10 [facility] [address] [id number] [address] [place] [phone] Mar, [facility] [address] [id number] [address] [place] [address], [place] [phone] Mar, Paranoid schizophrenia F20.0 ; Posttraumatic stress disorder F43.10 and Attention deficit hyperactivity disorder (ADHD), inattentive type, 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 [facility] [address] [id number] [address] [place] [address], [place] [phone] February, [facility] [address] [id number] [address] [place] [phone] February, [facility] [address] [id number] [address] [place] [address], [place] [phone] February, [facility] [address] [id number] [address] [place] [phone] February, [facility] [address] [id number] [address] [place] [address], [place] [phone] Jan, Paranoid schizophrenia F20.0 [facility] [address] [id number] [address] [place] [address] [id number] Jan, Dental examination Z01.20 [facility] [address] [id number] [address] [place] [address] [id number] Jan, Dental caries K02.9 [facility] [address] [id number] [address] [place] [address] [id number] Jan, Dental examination Z01.20 [facility] [address] [id number] [address] [place] [address] [id number] Dec, Encounter for dental examina tion Z01.20 [facility] [address] [id number] [address] [place] [phone] Dec, Paranoid schizophrenia F20.0 [facility] [address] [id number] [address] [place] [address] [id number] Dec, Dental examination Z01.20 [facility] [address] [id number] [address] [place] [phone] Dec, [facility] [address] [id number] [address] [place] [phone] Dec, Paranoid schizophrenia F20.0 ; Posttraumatic stress disorder F43.10 and Attention deficit hyperactivity disorder (ADHD), inattentive type, 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 [facility] [address] [id number] [address] [place] [phone] Nov, Schizoaffective disorder, un specified F25.9 [facility] [address] [id number] [address] [place] [phone] Oct, Paranoid schizophrenia F20.0 [facility] [address] [id number] [address] [place] [phone] Oct, [facility] [address] [id number] [address] [place] [phone] Sep, Paranoid schizophrenia F20.0 ; Posttraumatic stress disorder F43.10 and Attention deficit hyperactivity disorder (ADHD), inattentive type, 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 [facility] [address] [id number] [address] [place] [phone] Sep, [facility] [address] [facility] [id number] [address] [place], [place] [address] Sep, Paranoid schizophrenia F20.0 ; Posttraumatic stress disorder F43.10 and Attention deficit hyperactivity disorder (ADHD), inattentive type, 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 [facility] [address] [facility] [id number] [address] [place] [phone] Aug, Paranoid schizophrenia F20.0 [facility] [address] [facility] [id number] [address] [place] [phone] Aug, [facility] [address] [facility] [id number] [address] [place] [phone] Aug, Posttraumatic stress disorde r F43.10 ; Paranoid schizophrenia F20.0 and Attention deficit hyperactivity disorder (ADHD), inattentive type, 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 [facility] [address] [facility] [id number] [address] [place] [address] Jul, Bipolar disorder, unspecifie d F31.9 [facility] [address] [facility] [id number] [address] [place] [address] Jul, [facility] [address] [facility] [id number] [address] [place] [address] Jun, [facility] [address] [facility] [id number] [address] [place] [address] Jun, Schizoaffective disorder, ch ronic 295.72 ; Posttraumatic stress disorder 309.81 and Attention deficit disorder of childhood without mention of hyperactivity 314.00 [facility] [address] [facility] [id number] [address] [place] [phone] May, [facility] [address] [facility] [id number] [address] [place] [address] May, [facility] [address] [facility] [id number] [address] [place] [address] May, Schizoaffective disorder, ch ronic 295.72 ; Posttraumatic stress disorder 309.81 ; Attention deficit disorder of childhood without mention of hyperactivity 314.00 and Bipolar disorder, unspecified 296.80 [facility] [address] [facility] [id number] [address] [place] [address] Apr, Schizoaffective disorder, ch ronic 295.72 [facility] [address] [facility] [id number] [address] [place] [id number] Apr, [facility] [address] [id number] [address] [place] [address] Apr, Schizoaffective disorder, ch ronic 295.72 ; Posttraumatic stress disorder 309.81 and Attention deficit disorder of childhood without mention of hyperactivity 314.00 [facility] [address] [facility] [id number] [address] [place] [address] Mar, Disorganized schizophrenia, 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 [facility] [address] [facility] [id number] [address] [place] [phone] Mar, [facility] [address] [facility] [id number] [address] [place] [address] Mar, [facility] [address] [facility] [id number] [address] [place] [phone] Mar, [facility] [address] [facility] [id number] [address] [place] [phone] Mar, [facility] [address] [facility] [id number] [address] [place] [address] February, Schizoaffective disorder, ch ronic 295.72 [facility] [address] [facility] [id number] [address] [place] [address] February, [facility] [address] [facility] [id number] [address] [place] [id number] February, Attention 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 ; Posttraumatic stress disorder 309.81 and Schizoaffective disorder, chronic 295.72 [facility] [address] [id number] [address] [place] [address], [place] [address] 29 Jan, 2015 [facility] [address] [id number] [address] [place] [address], [place] [address] 14 Jan, 2015 [facility] [address] [id number] [address] [place] [address], [place] [address] Jan, [facility] [address] [id number] [address] [place] [address], [place] [address] Dec, [facility] [address] [id number] [address] [place] [address], [place] [address] Dec, [facility] [address] [id number] [address] [place] [address], [place] [address] Dec, [facility] [address] [id number] [address] [place] [address], [place] [address] Dec, [facility] [address] [id number] [address] [place] [address], [place] [address] Dec, [facility] [address] [id number] [address] [place] [address], [place] [address] Dec, [facility] [address] [id number] [address] [place] [address], [place] [address] Dec, [facility] [address] [id number] [address] [place] [address], [place] [address] Dec, [facility] [address] [id number] [address] [place] [address], [place] [address] Nov, [facility] [address] [id number] [address] [place] [address], [place] [address] Nov, [facility] [address] [id number] [address] [place] [address], [place] [address] Nov, [facility] [address] [id number] [address] [place] [address], [place] [address] Nov, [facility] [address] [id number] [address] [place] [address], [place] [address] Nov, [facility] [address] [id number] [address] [place] [address], [place] [address] Nov, [facility] [address] [id number] [address] [place] [address], [place] [address] Nov, [facility] [address] [id number] [address] [place] [address], [place] [address] Nov, [facility] [address] [id number] [address] [place] [address], [place] [address] Nov, [facility] [address] [id number] [address] [place] [address], [place] [address] Nov, [facility] [address] [id number] [address] [place] [address], [place] [address] Oct, [facility] [address] [id number] [address] [place] [address], [place] [address] Oct, [facility] [address] [id number] [address] [place] [address], [place] [address] Oct, [facility] [address] [id number] [address] [place] [address], [place] [address] Oct, [facility] [address] [id number] [address] [place] [address], [place] [address] Oct, [facility] [address] [id number] [address] [place] [address], [place] [address] Oct, [facility] [address] [id number] [address] [place] [address], [place] [address] Oct, [facility] [address] [id number] [address] [place] [address], [place] [address] Sep, [facility] [address] [id number] [address] [place] [address], [place] [address] Sep, [facility] [address] [id number] [address] [place] [address], [place] [address] Sep, [facility] [address] [id number] [address] [place] [address], [place] [address] 15 Sep, 2014 [facility] [address] [id number] [address] [place] [address], [place] [address] Aug, [facility] [address] [id number] [address] [place] [address], [place] [address] Aug, [facility] [address] [id number] [address] [place] [address], [place] [address] Aug, [facility] [address] [id number] [address] [place] [address], [place] [address] Aug, [facility] [address] [id number] [address] [place] [address], [place] [address] Aug, [facility] [address] [id number] [address] [place] [address], [place] [address] Aug, [facility] [address] [id number] [address] [place] [address], [place] [address] Jul, [facility] [address] [id number] [address] [place] [address], [place] [address] 29 Jul, 2014 [facility] [address] [id number] [address] [place] [address], [place] [address] 24 Jul, 2014 [facility] [address] [id number] [address] [place] [address], [place] [address] 24 Jul, 2014 [facility] [address] [id number] [address] [place] [address], [place] [address] 15 Jul, 2014 [facility] [address] [id number] [address] [place] [address], [place] [address] 15 Jul, 2014 [facility] [address] [id number] [address] [place] [address], [place] [address] 27 Jun, 2014 [facility] [address] [id number] [address] [place] [address], [place] [address] 27 Jun, 2014 [facility] [address] [id number] [address] [place] [address], [place] [address] Jun, 2013 [facility] [address] [id number] [facility] [place] [address] 26 Jun, 2013 [facility] [address] [id number] [facility] [place] [address] Jun, 2013 [facility] [address] [id number] [address] [place] [address], [place] [address] Jun, 2013 [facility] [address] [id number] [address] [place] [address], [place] [address] 16 Jun, 2013 [facility] [address] [id number] [address] [place] [address], [place] [address] 16 Jun, 2013 [facility] [address] [id number] [address] [place] [address], [place] [address] Jun, 2013 [facility] [address] [id number] [address] [place] [address], [place] [address] Jun, 2013 [facility] [address] [id number] [address] [place] [address], [place] [address] Jun, [facility] [address] [id number] [address] [place] [address], [place] [address] May, [facility] [address] [id number] [address] [place] [address], [place] [address] May, [facility] [address] [id number] [address] [place] [address], [place] [address] May, [facility] [address] [id number] [address] [place] [address], [place] [address] May, [facility] [address] [id number] [address] [place] [address], [place] [address] May, [facility] [address] [id number] [address] [place] [address], [place] [address] May, [facility] [address] [id number] [address] [place] [address], [place] [address] May, [facility] [address] [id number] [address] [place] [address], [place] [address] May, [facility] [address] [id number] [address] [place] [address], [place] [address] May, [facility] [address] [id number] [address] [place] [address], [place] [address] May, [facility] [address] [id number] [address] [place] [address], [place] [address] Apr, [facility] [address] [id number] [address] [place] [address], [place] [address] Apr, [facility] [address] [id number] [address] [place] [address], [place] [address] Apr, [facility] [address] [id number] [address] [place] [address], [place] [address] Apr, [facility] [address] [id number] [address] [place] [address], [place] [address] Apr, [facility] [address] [id number] [address] [place] [address], [place] [address] Apr, [facility] [address] [id number] [address] [place] [address], [place] [address] Apr, [facility] [address] [id number] [address] [place] [address], [place] [address] Apr, [facility] [address] [id number] [address] [place] [address], [place] [address] Apr, [facility] [address] [id number] [address] [place] [address], [place] [address] Apr, [facility] [address] [id number] [address] [place] [address], [place] [address] Mar, [facility] [address] [id number] [address] [place] [address], [place] [address] Mar, [facility] [address] [id number] [address] [place] [address], [place] [address] Mar, [facility] [address] [id number] [address] [place] [address], [place] [address] Mar, [facility] [address] [id number] [address] [place] [address], [place] [address] Mar, [facility] [address] [id number] [address] [place] [address], [place] [address] Mar, [facility] [address] [id number] [address] [place] [address], [place] [address] Mar, [facility] [address] [id number] [address] [place] [address], [place] [address] Mar, [facility] [address] [id number] [address] [place] [address], [place] [address] Mar, [facility] [address] [id number] [address] [place] [address], [place] [address] Mar, [facility] [address] [id number] [address] [place] [address], [place] [address] Mar, [facility] [address] [id number] [address] [place] [address], [place] [address] Mar, [facility] [address] [id number] [address] [place] [address], [place] [address] Mar, [facility] [address] [id number] [address] [place] [address], [place] [address] Mar, [facility] [address] [id number] [address] [place] [address], [place] [address] Mar, [facility] [address] [id number] [address] [place] [address], [place] [address] Mar, [facility] [address] [id number] [address] [place] [address], [place] [address] Mar, [facility] [address] [id number] [address] [place] [address], [place] [address] 09 Mar, 2014 [facility] [address] [id number] [address] [place] [address], [place] [address] Mar, [facility] [address] [id number] [facility] [address] Mar, [facility] [address] [id number] [address] [place] [address], [place] [address] February, [facility] [address] [id number] [address] [place] [address], [place] [address] February, [facility] [address] [id number] [address] [place] [address], [place] [address] February, [facility] [address] [id number] [address] [place] [address], [place] [address] February, [facility] [address] [id number] [address] [place] [address], [place] [address] February, [facility] [address] [id number] [address] [place] [address], [place] [address] February, [facility] [address] [id number] [address] [place] [address], [place] [address] February, [facility] [address] [id number] [address] [place] [address], [place] [address] February, [facility] [address] [id number] [address] [place] [address], [place] [address] February, [facility] [address] [id number] [address] [place] [address], [place] [address] February, [facility] [address] [id number] [address] [place] [address], [place] [address] February, [facility] [address] [id number] [address] [place] [address], [place] [address] February, [facility] [address] [id number] [address] [place] [address], [place] [address] February, [facility] [address] [id number] [address] [place] [address], [place] [address] February, [facility] [address] [id number] [address] [place] [address], [place] [address] February, [facility] [address] [id number] [address] [place] [address], [place] [address] February, [facility] [address] [id number] [address] [place] [address], [place] [address] February, [facility] [address] [id number] [address] [place] [address], [place] [address] February, [facility] [address] [id number] [address] [place] [address], [place] [address] February, [facility] [address] [id number] [address] [place] [address], [place] [address] February, [facility] [address] [id number] [address] [place] [address], [place] [address] February, [facility] [address] [id number] [address] [place] [address], [place] [address] Jan, [facility] [address] [id number] [address] [place] [address], [place] [address] Jan, [facility] [address] [id number] [address] [place] [address], [place] [address] Jan, [facility] [address] [id number] [address] [place] [address], [place] [address] Jan, [facility] [address] [id number] [address] [place] [address], [place] [address] Jan, [facility] [address] [id number] [address] [place] [address], [place] [address] Jan, [facility] [address] [id number] [address] [place] [address], [place] [address] Jan, [facility] [address] [id number] [address] [place] [address], [place] [address] Jan, [facility] [address] [id number] [address] [place] [address], [place] [address] Dec, [facility] [address] [id number] [facility] [place] [address] 20 Dec, 2013 [facility] [address] [id number] [facility] [place] [address] 20 Dec, 2013 [facility] [address] [id number] [facility] [place] [address] 19 Dec, 2013 [facility] [address] [id number] [address] [place] [address], [place] [address] 19 Dec, 2013 [facility] [address] [id number] [address] [place] [address], [place] [address] 15 Dec, 2013 [facility] [address] [id number] [address] [place] [address], [place] [address] 15 Dec, 2013 [facility] [address] [id number] [address] [place] [address], [place] [address] 11 Dec, 2013 [facility] [address] [id number] [address] [place] [address], [place] [address] 10 Dec, 2013 [facility] [address] [id number] [address] [place] [id number], [place] [address] 10 Dec, 2013 [facility] [place] [facility] [address] [id number] [address] [place] [id number], [place] [id number] 18 Nov, 2013 [facility] [place] [facility] [address] [id number] [address] [place] [id number], [place] [address] 17 Nov, 2013 [facility] [place] [facility] [address] [id number] [address] [place] [id number], [place] [id number] Nov, [facility] [place] [facility] [address] [id number] [address] [place] [address], [place] [address] 05 Nov, 2013 [facility] [place] [facility] [address] [id number] [address] [place] [id number], [place] [address] 05 Nov, 2013 [facility] [place] [facility] [address] [id number] [address] [place] [address], [place] [address] Oct, [facility] [place] [facility] [address] [id number] [address] [place] [address] Oct, [facility] [address] [id number] [address] [place] [id number], [place] [address] Oct, [facility] [address] [id number] [address] [place] [address], [place] [address] Sep, [facility] [address] [id number] [address] [place] [address], [place] [address] Sep, [facility] [address] [id number] [address] [place] [address], [place] [address] Sep, [facility] [address] [id number] [address] [place] [address], [place] [address] Sep, [facility] [address] [id number] [address] [place] [address], [place] [address] Aug, [facility] [address] [id number] [address] [place] [address], [place] [address] Aug, [facility] [address] [id number] [address] [place] [address], [place] [address] Jul, [facility] [address] [id number] [address] [place] [address], [place] [address] Jul, [facility] [address] [id number] [address] [place] [address], [place] [address] Jul, [facility] [address] [id number] [address] [place] [address], [place] [address] Jul, [facility] [address] [id number] [address] [place] [address], [place] [address] Jul, [facility] [address] [id number] [address] [place] [address], [place] [address] Jun, [facility] [address] [id number] [address] [place] [address], [place] [address] Jun, [facility] [address] [id number] [address] [place] [address], [place] [address] 19 Jun, 2013 [facility] [place] [facility] [address] [id number] [address] [place] [address], [place] [address] 18 Jun, 2013 [facility] [address] [id number] [address] [place] [address], [place] [address] 16 Jun, 2013 [facility] [address] [id number] [address] [place] [address], [place] [address] 12 Jun, 2013 [facility] [address] [id number] [address] [place] [address], [place] [address] 11 Jun, 2013 [facility] [address] [id number] [address] [place] [address], [place] [address] 30 May, 2013 [facility] [address] [id number] [address] [place] [address], [place] [address] May, [facility] [address] [id number] [address] [place] [address], [place] [address] Apr, [facility] [address] [id number] [address] [place] [address], [place] [address] Apr, [facility] [address] [id number] [address] [place] [address], [place] [address] Apr, [facility] [address] [id number] [address] [place] [address], [place] [address] Mar, [facility] [address] [id number] [address] [place] [address], [place] [address] Mar, [facility] [address] [id number] [address] [place] [address], [place] [address] February, [facility] [address] [id number] [address] [place] [address], [place] [address] February, [facility] [address] [id number] [address] [place] [address], [place] [address] February, [facility] [address] [id number] [address] [place] [address], [place] [address] February, [facility] [address] [id number] [address] [place] [address], [place] [address] 19 Jan, 2013 [facility] [address] [id number] [address] [place] [address], [place] [address] 17 Jan, 2013 [facility] [address] [id number] [address] [place] [address], [place] [address] 16 Jan, 2013 [facility] [address] [id number] [address] [place] [address], [place] [address] 29 Dec, 2012 [facility] [address] [id number] [address] [place] [address], [place] [address] Dec, [facility] [address] [id number] [address] [place] [address], [place] [address] Dec, [facility] [address] [id number] [address] [place] [address], [place] [address] 08 Dec, 2012 [facility] [address] [id number] [address] [place] [address], [place] [address] Nov, [facility] [address] [id number] [address] [place] [address], [place] [address] Nov, [facility] [address] [id number] [address] [place] [address], [place] [id number] Oct, [facility] [address] [id number] [address] [place] [address], [place] [address] Oct, [facility] [address] [id number] [address] [place] [address], [place] [address] Oct, [facility] [address] [id number] [address] [place] [address], [place] [address] Oct, [facility] [address] [id number] [address] [place] [address], [place] [address] Aug, [facility] [address] [id number] [address] [place] [address], [place] [address] Aug, [facility] [address] [id number] [address] [place] [address], [place] [address] 18 Jun, 2012 [facility] [address] [id number] [facility] [place] [address] May, [facility] [address] [id number] [address] [place] [address], [place] [address] May, [facility] [address] [id number] [address] [place] [address], [place] [address] Apr, [facility] [address] [id number] [address] [place] [address], [place] [address] Apr, [facility] [address] [id number] [address] [place] [address], [place] [address] Apr, [facility] [address] [id number] [address] [place] [address], [place] [address] Mar, [facility] [address] [id number] [address] [place] [address], [place] [address] Mar, [facility] [address] [id number] [address] [place] [address], [place] [address] Mar, [facility] [address] [id number] [address] [place] [address], [place] [address] Mar, [facility] [address] [id number] [address] [place] [address], [place] [address] Mar, [facility] [address] [id number] [address] [place] [address], [place] [address] February, [facility] [address] [id number] [address] [place] [address], [place] [address] February, [facility] [address] [id number] [address] [place] [address], [place] [address] February, [facility] [address] [id number] [address] [place] [address], [place] [address] February, [facility] [address] [id number] [address] [place] [address], [place] [address] February, [facility] [address] [id number] [address] [place] [address], [place] [address] February, [facility] [address] [id number] [address] [place] [address], [place] [address] February, [facility] [address] [id number] [address] [place] [address], [place] [address] Jan, [facility] [address] [id number] [address] [place] [address], [place] [address] Jan, [facility] [address] [id number] [address] [place] [address], [place] [address] 17 Jan, 2012 [facility] [address] [id number] [address] [place] [address], [place] [address] Jan, [facility] [address] [id number] [address] [place] [address], [place] [address] Jan, [facility] [address] [id number] [address] [place] [address], [place] [address] Jan, [facility] [address] [id number] [address] [place] [address], [place] [address] 30 Dec, 2011 [facility] [address] [id number] [address] [place] [address], [place] [address] 24 Dec, 2011 [facility] [address] [id number] [address] [place] [address], [place] [address] Dec, [facility] [address] [id number] [address] [place] [address], [place] [address] Dec, [facility] [address] [id number] [address] [place] [address], [place] [address] Dec, [facility] [address] [id number] [address] [place] [address], [place] [address] Nov, [facility] [address] [id number] [address] [place] [address], [place] [address] Nov, [facility] [address] [id number] [address] [place] [address], [place] [address] Nov, [facility] [address] [id number] [address] [place] [address], [place] [address] 14 Nov, 2011 [facility] [address] [id number] [address] [place] [address], [place] [address] 10 Nov, 2011 [facility] [address] [id number] [address] [place] [address], [place] [address] Nov, [facility] [address] [id number] [address] [place] [address], [place] [address] Oct, [facility] [address] [id number] [address] [place] [address], [place] [address] Oct, [facility] [address] [id number] [address] [place] [address], [place] [address] Oct, [facility] [address] [id number] [address] [place] [address], [place] [address] Oct, [facility] [address] [id number] [address] [place] [address], [place] [address] Oct, [facility] [address] [id number] [address] [place] [address], [place] [address] Sep, [facility] [address] [id number] [address] [place] [address], [place] [address] Sep, [facility] [address] [id number] [address] [place] [address], [place] [address] Sep, [facility] [address] [id number] [address] [place] [address], [place] [address] 14 Sep, 2011 [facility] [address] [id number] [address] [place] [address], [place] [address] 14 Sep, 2011 [facility] [address] [id number] [address] [place] [address], [place] [address] 13 Sep, 2011 [facility] [address] [id number] [address] [place] [address], [place] [address] 12 Sep, 2011 [facility] [address] [id number] [address] [place] [address], [place] [address] Sep, [facility] [address] [id number] [address] [place] [address], [place] [address] Sep, [facility] [address] [id number] [address] [place] [address], [place] [address] Aug, [facility] [address] [id number] [address] [place] [address], [place] [address] Aug, [facility] [address] [id number] [address] [place] [address], [place] [address] Aug, [facility] [address] [id number] [address] [place] [address], [place] [address] Aug, [facility] [address] [id number] [address] [place] [address], [place] [address] Aug, [facility] [address] [id number] [address] [place] [address], [place] [address] Aug, [facility] [address] [id number] [address] [place] [address], [place] [address] Aug, [facility] [address] [id number] [address] [place] [address], [place] [address] Aug, [facility] [address] [id number] [address] [place] [address], [place] [address] Aug, [facility] [address] [id number] [address] [place] [address], [place] [address] Aug, [facility] [address] [id number] [address] [place] [address], [place] [address] Aug, [facility] [address] [id number] [address] [place] [address], [place] [address] Aug, [facility] [address] [id number] [address] [place] [address], [place] [address] Jul, [facility] [address] [id number] [address] [place] [address], [place] [address] Jul, [facility] [address] [id number] [address] [place] [id number] Jul, [facility] [address] [id number] [address] [place] [id number] Jul, [facility] [address] [id number] [address] [place] [id number] Jul, [facility] [address] [id number] [address] [place] [id number] Jul, [facility] [address] [id number] [address] [place] [id number] Jul, [facility] [address] [id number] [address] [place] [id number] Jul, [facility] [address] [id number] [address] [place] [id number] Jul, [facility] [address] [id number] [address] [place] [id number] Jul, [facility] [address] [id number] [address] [place] [id number] Nov, [facility] [address] [id number] [address] [place] [id number] Aug, [facility] [address] [id number] [address] [place] [id number] Aug, [facility] [address] [id number] [address] [place] [id number] Aug, [facility] [address] [id number] [address] [place] [id number] Aug, [facility] [address] [id number] [address] [place] [id number] Jul, IMMUNIZATIONS No Known Immunizations SOCIAL HISTORY Never Assessed [place] [place] 2015 Hospitalization History [facility] 01/30/2018-02/10/20 08 Hospitalization History [facility] 05/04/18-
--- OUTSIDE RECORDS SUMMARY | 2020-04-04 02:31 | XMS REPORT ---
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 Active 58598527 Problem Generalized anxiety disorder 300.02 A ctive 88037717 Problem Obsessive-compulsive disorders 300.3 Active 883742478 Problem Catatonic schizophrenia, 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 035432965 Problem Disorganized schizophrenia, 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 88268525 Problem Paranoid schizophrenia F20.0 Active 95728136 Problem Borderline personality disorder F60.3 Active 82194623 Problem Paranoid schizophrenia, unspecified condition 295.30 Active 88578202 Problem Schizoaffective disorder, depressive type F25.1 Active 95663745 Problem Bipolar disorder, unspecified 296.80 Active 65004867 Problem Schizoaffective disorder, unspecified F25.9 Active 91511868 Problem Attention deficit hyperactivity disorder (ADHD), inattentive type, 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 84885906 Problem Posttraumatic stress disorder F43.10 Active 38399930 Problem High risk medication use Z79.899 Activ e [id number] ALLERGIES No Information ENCOUNTERS Encounter Location Date Diagnosis [facility] [address] [facility] [id number] [address] [place] [phone] Jan, [facility] [address] [facility] [id number] [address] [place] [phone] Dec, Paranoid schizophrenia F20.0 ; Posttraumatic stress disorder F43.10 ; Attention deficit hyperactivity disorder (ADHD), inattentive type, 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 and Borderline personality disorder F60.3 [facility] [address] [facility] [id number] [address] [place] [address] Dec, Paranoid schizophrenia F20.0 ; Posttraumatic stress disorder F43.10 ; Attention deficit hyperactivity disorder (ADHD), inattentive type, 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 and Borderline personality disorder F60.3 [facility] [address] [place] [id number] [address] [place] [address] Oct, Paranoid schizophrenia F20.0 ; Posttraumatic stress disorder F43.10 ; Attention deficit hyperactivity disorder (ADHD), inattentive type, 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 and Borderline personality disorder F60.3 [facility] [address] [place] [id number] [address] [place] [phone] Oct, Paranoid schizophrenia F20.0 ; Posttraumatic stress disorder F43.10 ; Attention deficit hyperactivity disorder (ADHD), inattentive type, 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 and Borderline personality disorder F60.3 [facility] [address] [place] [id number] [address] [place] [phone] Aug, [facility] [address] [place] [id number] [place] [phone] Aug, Paranoid schizophrenia F20.0 ; Posttraumatic stress disorder F43.10 ; Attention deficit hyperactivity disorder (ADHD), inattentive type, 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 and Borderline personality disorder F60.3 [facility] [address] [facility] [id number] [address] [place] [phone] Jul, Dry skin dermatitis L85.3 [facility] [address] [facility] [id number] [address] [place] [id number] Jul, [facility] [address] [facility] [id number] [address] [place] [phone] Jul, Paranoid schizophrenia F20.0 [facility] [address] [facility] [id number] [address] [place] [phone] May, Paranoid schizophrenia F20.0 ; Posttraumatic stress disorder F43.10 ; Attention deficit hyperactivity disorder (ADHD), inattentive type, 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 and Borderline personality disorder F60.3 [facility] [address] [facility] [id number] [address] [place] [phone] May, [facility] [address] [id number] [address] [address] May, Paranoid schizophrenia F20.0 [facility] [address] [id number] [address] [place] [address], [place] [address] May, Paranoid schizophrenia F20.0 ; Posttraumatic stress disorder F43.10 ; Attention deficit hyperactivity disorder (ADHD), inattentive type, 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 and Borderline personality disorder F60.3 [facility] [address] [id number] [facility] [place] [address] Apr, [facility] [address] [id number] [address] [place] [address], [place] [address] Apr, Paranoid schizophrenia F20.0 ; Posttraumatic stress disorder F43.10 ; Attention deficit hyperactivity disorder (ADHD), inattentive type, 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 and Borderline personality disorder F60.3 [facility] [address] [id number] [address] [place] [phone] Apr, [facility] [address] [id number] [address] [place] [phone] Apr, Schizoaffective disorder, de pressive type F25.1 and Borderline personality disorder F60.3 [facility] [address] [id number] [address] [place] [address] Apr, Paranoid schizophrenia F20.0 ; Posttraumatic stress disorder F43.10 ; Attention deficit hyperactivity disorder (ADHD), inattentive type, 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 and Borderline personality disorder F60.3 [facility] [address] [id number] [address] [place] [address] Apr, [facility] [address] [id number] [address] [place] [phone] Apr, Paranoid schizophrenia F20.0 ; Posttraumatic stress disorder F43.10 ; Attention deficit hyperactivity disorder (ADHD), inattentive type, 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 and Borderline personality disorder F60.3 [facility] [address] [id number] [address] [place] [id number] Apr, [facility] [address] [id number] [address] [place] [phone] Mar, Paranoid schizophrenia F20.0 [facility] [address] [id number] [address] [place] [id number] Mar, [facility] [address] [id number] [address] [place] [phone] Mar, Paranoid schizophrenia F20.0 ; Posttraumatic stress disorder F43.10 ; Attention deficit hyperactivity disorder (ADHD), inattentive type, 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 and Borderline personality disorder F60.3 [facility] [address] [id number] [address] [place] [phone] February, Paranoid schizophrenia F20.0 [facility] [address] [id number] [address] [place] [phone] February, Paranoid schizophrenia F20.0 ; Posttraumatic stress disorder F43.10 ; Attention deficit hyperactivity disorder (ADHD), inattentive type, 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 and Borderline personality disorder F60.3 [facility] [address] [id number] [address] [place] [address] February, Paranoid schizophrenia F20.0 ; Posttraumatic stress disorder F43.10 ; Attention deficit hyperactivity disorder (ADHD), inattentive type, 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 and Borderline personality disorder F60.3 [facility] [address] [id number] [address] [place] [phone] February, [facility] [address] [id number] [address] [place] [phone] February, Paranoid schizophrenia F20.0 [facility] [address] [id number] [address] [place] [id number] February, Paranoid schizophrenia F20.0 [facility] [address] [id number] [address] [place] [address] February, Paranoid schizophrenia F20.0 ; Posttraumatic stress disorder F43.10 ; Attention deficit hyperactivity disorder (ADHD), inattentive type, 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 and Borderline personality disorder F60.3 [facility] [address] [id number] [address] [place] [address] Jan, Paranoid schizophrenia F20.0 ; Posttraumatic stress disorder F43.10 ; Attention deficit hyperactivity disorder (ADHD), inattentive type, 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 and Borderline personality disorder F60.3 [facility] [address] [id number] [address] [place] [phone] Jan, Paranoid schizophrenia F20.0 [facility] [address] [id number] [address] [place] [address] Jan, Paranoid schizophrenia F20.0 [facility] [address] [facility] [id number] [address] [place] [address] Jan, Paranoid schizophrenia F20.0 ; Posttraumatic stress disorder F43.10 ; Attention deficit hyperactivity disorder (ADHD), inattentive type, 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 and Borderline personality disorder F60.3 [facility] [address] [id number] [address] [place] [phone] Dec, [facility] [address] [id number] [address] [place] [phone] Nov, Paranoid schizophrenia F20.0 ; Posttraumatic stress disorder F43.10 ; Attention deficit hyperactivity disorder (ADHD), inattentive type, 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 and Borderline personality disorder F60.3 [facility] [address] [id number] [address] [place] [phone] Nov, [facility] [address] [id number] [address] [place] [phone] Oct, Paranoid schizophrenia F20.0 [facility] [address] [facility] [id number] [address] [place] [phone] Oct, Paranoid schizophrenia F20.0 ; Posttraumatic stress disorder F43.10 ; Attention deficit hyperactivity disorder (ADHD), inattentive type, 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 ; Borderline personality disorder F60.3 and Other chcf (current) drug therapy Z79.899 [facility] [address] [id number] [address] [place] [phone] Oct, [facility] [address] [facility] [id number] [address] [place] [phone] Oct, [facility] [address] [id number] [address] [place] [phone] Sep, [facility] [address] [id number] [address] [place] [phone] Sep, Paranoid schizophrenia F20.0 ; Posttraumatic stress disorder F43.10 ; Attention deficit hyperactivity disorder (ADHD), inattentive type, 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 and Borderline personality disorder F60.3 [facility] [address] [facility] [id number] [address] [place] [phone] Sep, Paranoid schizophrenia F20.0 [facility] [address] [id number] [address] [place] [id number] Aug, Paranoid schizophrenia F20.0 ; Posttraumatic stress disorder F43.10 ; Attention deficit hyperactivity disorder (ADHD), inattentive type, 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 and Borderline personality disorder F60.3 [facility] [address] [facility] [id number] [address] [place] [address] Aug, Paranoid schizophrenia F20.0 ; Posttraumatic stress disorder F43.10 ; Attention deficit hyperactivity disorder (ADHD), inattentive type, 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 and Borderline personality disorder F60.3 [facility] [address] [id number] [address] [place] [phone] Aug, [facility] [address] [facility] [id number] [address] [place] [phone] Jul, Paranoid schizophrenia F20.0 ; Posttraumatic stress disorder F43.10 ; Attention deficit hyperactivity disorder (ADHD), inattentive type, 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 and Borderline personality disorder F60.3 [facility] [address] [id number] [address] [place] [phone] Jul, Paranoid schizophrenia F20.0 [facility] [address] [id number] [address] [place] [phone] Jul, Paranoid schizophrenia F20.0 ; Posttraumatic stress disorder F43.10 ; Attention deficit hyperactivity disorder (ADHD), inattentive type, 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 and Borderline personality disorder F60.3 [facility] [address] [id number] [address] [place] [phone] Jun, Paranoid schizophrenia F20.0 ; Posttraumatic stress disorder F43.10 ; Attention deficit hyperactivity disorder (ADHD), inattentive type, 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 and Borderline personality disorder F60.3 [facility] [address] [id number] [address] [place] [address] May, Other chcf (current) dr ug therapy Z79.899 [facility] [address] [id number] [address] [place] [phone] May, [facility] [address] [id number] [address] [place] [phone] May, [facility] [address] [facility] [id number] [address] [place] [phone] May, Attention deficit hyperactiv ity disorder (ADHD), inattentive type, mild F90.0 [facility] [address] [facility] [id number] [address] [place] [phone] May, [facility] [address] [id number] [address] [place] [address] May, Attention deficit hyperactiv ity disorder (ADHD), inattentive type, mild F90.0 [facility] [address] [id number] [address] [place] [phone] May, Paranoid schizophrenia F20.0 ; Posttraumatic stress disorder F43.10 ; Attention deficit hyperactivity disorder (ADHD), inattentive type, 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 and Other chcf (current) drug therapy Z79.899 [facility] [address] [id number] [address] [place] [phone] Apr, Paranoid schizophrenia F20.0 [facility] [address] [id number] [address] [place] [phone] Apr, Paranoid schizophrenia F20.0 ; Posttraumatic stress disorder F43.10 and Attention deficit hyperactivity disorder (ADHD), inattentive type, 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 [facility] [address] [id number] [address] [place] [id number] February, [facility] [address] [id number] [address] [place] [id number] February, Paranoid schizophrenia F20.0 ; Posttraumatic stress disorder F43.10 and Attention deficit hyperactivity disorder (ADHD), inattentive type, 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 [facility] [address] [id number] [address] [place] [phone] February, Paranoid schizophrenia F20.0 ; Posttraumatic stress disorder F43.10 and Attention deficit hyperactivity disorder (ADHD), inattentive type, 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 [facility] [address] [id number] [address] [place] [phone] Jan, Paranoid schizophrenia F20.0 ; Posttraumatic stress disorder F43.10 and Attention deficit hyperactivity disorder (ADHD), inattentive type, 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 [facility] [address] [id number] [address] [place] [id number] Dec, Dental examination Z01.20 [facility] [address] [id number] [address] [place] [id number] Nov, Dental examination Z01.20 [facility] [address] [id number] [address] [place] [address] [id number] Nov, Dental examination Z01.20 [facility] [address] [id number] [address] [place] [address] [id number] Nov, Dental caries K02.9 [facility] [address] [id number] [address] [place] [id number] Nov, High risk medication use Z79 .899 [facility] [address] [id number] [address] [place] [phone] Nov, Paranoid schizophrenia F20.0 ; Posttraumatic stress disorder F43.10 ; Attention deficit hyperactivity disorder (ADHD), inattentive type, 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 and Borderline personality disorder in adult F60.3 [facility] [address] [id number] [address] [place] [address] [id number] Oct, Dental caries K02.9 [facility] [address] [id number] [address] [place] [phone] Sep, Paranoid schizophrenia F20.0 ; Posttraumatic stress disorder F43.10 and Attention deficit hyperactivity disorder (ADHD), inattentive type, 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 [facility] [address] [id number] [address] [place] [phone] Aug, Paranoid schizophrenia F20.0 ; Posttraumatic stress disorder F43.10 and Attention deficit hyperactivity disorder (ADHD), inattentive type, 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 [facility] [address] [id number] [address] [place] [phone] Aug, Strep throat J02.0 and Cough R05 [facility] [address] [id number] [address] [place] [id number] Aug, [facility] [address] [id number] [address] [place] [phone] 24 Jul, 2016 Paranoid schizophrenia F20.0 ; Posttraumatic stress disorder F43.10 and Attention deficit hyperactivity disorder (ADHD), inattentive type, 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 [facility] [address] [id number] [address] [place] [phone] Jul, [facility] [address] [id number] [address] [place] [phone] Jun, Paranoid schizophrenia F20.0 ; Posttraumatic stress disorder F43.10 and Attention deficit hyperactivity disorder (ADHD), inattentive type, 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 [facility] [address] [id number] [address] [place] [address] [id number] Jun, Dental examination Z01.20 [facility] [address] [id number] [address] [place] [phone] Jun, [facility] [address] [id number] [address] [place] [phone] May, Paranoid schizophrenia F20.0 [facility] [address] [id number] [address] [place] [phone] May, Paranoid schizophrenia F20.0 ; Posttraumatic stress disorder F43.10 and Attention deficit hyperactivity disorder (ADHD), inattentive type, 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 [facility] [address] [id number] [address] [place] [phone] May, [facility] [address] [id number] [address] [place] [id number] May, Paranoid schizophrenia F20.0 [facility] [address] [id number] [address] [place] [phone] May, [facility] [address] [id number] [address] [place] [id number] May, Paranoid schizophrenia F20.0 [facility] [address] [id number] [address] [place] [phone] May, Schizoaffective disorder, un specified F25.9 [facility] [address] [id number] [address] [place] [id number] May, Schizoaffective disorder, un specified F25.9 [facility] [address] [id number] [address] [place] [id number] May, [facility] [address] [id number] [address] [place] [phone] May, Paranoid schizophrenia F20.0 [facility] [address] [id number] [address] [place] [id number] May, Paranoid schizophrenia F20.0 ; Posttraumatic stress disorder F43.10 and Attention deficit hyperactivity disorder (ADHD), inattentive type, 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 [facility] [address] [id number] [address] [place] [address], [place] [address] Mar, [facility] [address] [id number] [facility] [place] [address] Mar, Paranoid schizophrenia F20.0 ; Posttraumatic stress disorder F43.10 and Attention deficit hyperactivity disorder (ADHD), inattentive type, 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 [facility] [address] [id number] [address] [place] [address], [place] [address] Mar, Paranoid schizophrenia F20.0 [facility] [address] [id number] [address] [place] [address], [place] [address] Mar, Paranoid schizophrenia F20.0 ; Attention deficit hyperactivity disorder (ADHD), inattentive type, 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 and Posttraumatic stress disorder F43.10 [facility] [address] [id number] [address] [place] [phone] Mar, [facility] [address] [id number] [address] [place] [address], [place] [address] Mar, Paranoid schizophrenia F20.0 ; Posttraumatic stress disorder F43.10 and Attention deficit hyperactivity disorder (ADHD), inattentive type, 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 [facility] [address] [id number] [address] [place] [address], [place] [address] February, [facility] [address] [id number] [address] [place] [phone] February, [facility] [address] [id number] [address] [place] [address], [place] [address] February, [facility] [address] [id number] [address] [place] [phone] February, [facility] [address] [id number] [address] [place] [address], [place] [address] Jan, Paranoid schizophrenia F20.0 [facility] [address] [id number] [address] [place] [address] [id number] Jan, Dental examination Z01.20 [facility] [address] [id number] [address] [place] [address] [id number] Jan, Dental caries K02.9 [facility] [address] [id number] [address] [place] [address] [id number] Jan, Dental examination Z01.20 [facility] [address] [id number] [address] [place] [address] [id number] Dec, Encounter for dental examina tion Z01.20 [facility] [address] [id number] [address] [place] [phone] Dec, Paranoid schizophrenia F20.0 [facility] [address] [id number] [address] [place] [address] [id number] Dec, Dental examination Z01.20 [facility] [address] [id number] [address] [place] [id number] Dec, [facility] [address] [id number] [address] [place] [phone] Dec, Paranoid schizophrenia F20.0 ; Posttraumatic stress disorder F43.10 and Attention deficit hyperactivity disorder (ADHD), inattentive type, 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 [facility] [address] [id number] [address] [place] [id number] Nov, Schizoaffective disorder, un specified F25.9 [facility] [address] [id number] [address] [place] [phone] Oct, Paranoid schizophrenia F20.0 [facility] [address] [id number] [address] [place] [id number] Oct, [facility] [address] [id number] [address] [place] [phone] Sep, Paranoid schizophrenia F20.0 ; Posttraumatic stress disorder F43.10 and Attention deficit hyperactivity disorder (ADHD), inattentive type, 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 [facility] [address] [id number] [address] [place] [phone] Sep, [facility] [address] [facility] [id number] [address] [place], [place] [address] Sep, Paranoid schizophrenia F20.0 ; Posttraumatic stress disorder F43.10 and Attention deficit hyperactivity disorder (ADHD), inattentive type, 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 [facility] [address] [facility] [id number] [address] [place] [id number] Aug, Paranoid schizophrenia F20.0 [facility] [address] [facility] [id number] [address] [place] [id number] Aug, [facility] [address] [facility] [id number] [address] [place] [id number] Aug, Posttraumatic stress disorde r F43.10 ; Paranoid schizophrenia F20.0 and Attention deficit hyperactivity disorder (ADHD), inattentive type, 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 [facility] [address] [facility] [id number] [address] [place] [id number] Jul, Bipolar disorder, unspecifie d F31.9 [facility] [address] [facility] [id number] [address] [place] [address] Jul, [facility] [address] [facility] [id number] [address] [place] [id number] Jun, [facility] [address] [facility] [id number] [address] [place] [address] Jun, Schizoaffective disorder, ch ronic 295.72 ; Posttraumatic stress disorder 309.81 and Attention deficit disorder of childhood without mention of hyperactivity 314.00 [facility] [address] [facility] [id number] [address] [place] [address] May, [facility] [address] [facility] [id number] [address] [place] [address] May, [facility] [address] [facility] [id number] [address] [place] [address] May, Schizoaffective disorder, ch ronic 295.72 ; Posttraumatic stress disorder 309.81 ; Attention deficit disorder of childhood without mention of hyperactivity 314.00 and Bipolar disorder, unspecified 296.80 [facility] [address] [facility] [id number] [address] [place] [address] Apr, Schizoaffective disorder, ch ronic 295.72 [facility] [address] [facility] [id number] [address] [place] [id number] Apr, [facility] [address] [id number] [address] [place] [address] Apr, Schizoaffective disorder, ch ronic 295.72 ; Posttraumatic stress disorder 309.81 and Attention deficit disorder of childhood without mention of hyperactivity 314.00 [facility] [address] [facility] [id number] [address] [place] [id number] Mar, Disorganized schizophrenia, 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 [facility] [address] [facility] [id number] [address] [place] [id number] Mar, [facility] [address] [facility] [id number] [address] [place] [address] Mar, [facility] [address] [facility] [id number] [address] [place] [address] Mar, [facility] [address] [facility] [id number] [address] [place] [id number] Mar, [facility] [address] [facility] [id number] [address] [place] [id number] February, Schizoaffective disorder, ch ronic 295.72 [facility] [address] [facility] [id number] [address] [place] [address] February, [facility] [address] [facility] [id number] [address] [place] [address] February, Attention 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 ; Posttraumatic stress disorder 309.81 and Schizoaffective disorder, chronic 295.72 [facility] [address] [id number] [address] [place] [address], [place] [address] 29 Jan, 2015 [facility] [address] [id number] [address] [place] [address], [place] [address] 14 Jan, 2015 [facility] [address] [id number] [address] [place] [address], [place] [address] Jan, [facility] [address] [id number] [address] [place] [address], [place] [address] Dec, [facility] [address] [id number] [address] [place] [address], [place] [address] Dec, [facility] [address] [id number] [address] [place] [address], [place] [address] Dec, [facility] [address] [id number] [address] [place] [address], [place] [address] Dec, [facility] [address] [id number] [address] [place] [address], [place] [address] Dec, [facility] [address] [id number] [address] [place] [address], [place] [address] Dec, [facility] [address] [id number] [address] [place] [address], [place] [address] Dec, [facility] [address] [id number] [address] [place] [address], [place] [address] Dec, [facility] [address] [id number] [address] [place] [address], [place] [address] Nov, [facility] [address] [id number] [address] [place] [address], [place] [address] Nov, [facility] [place] [facility] [address] [id number] [address] [place] [address], [place] [address] Nov, [facility] [address] [id number] [address] [place] [address], [place] [address] Nov, [facility] [place] [facility] [address] [id number] [address] [place] [address], [place] [address] Nov, [facility] [address] [id number] [address] [place] [address], [place] [address] Nov, [facility] [address] [id number] [address] [place] [address], [place] [address] Nov, [facility] [address] [id number] [address] [place] [address], [place] [address] Nov, [facility] [address] [id number] [address] [place] [address], [place] [address] Nov, [facility] [address] [id number] [address] [place] [address], [place] [address] Nov, [facility] [address] [id number] [address] [place] [address], [place] [address] Oct, [facility] [address] [id number] [address] [place] [address], [place] [address] Oct, [facility] [address] [id number] [address] [place] [address], [place] [address] Oct, [facility] [address] [id number] [address] [place] [address], [place] [address] Oct, [facility] [address] [id number] [address] [place] [address], [place] [address] Oct, [facility] [address] [id number] [address] [place] [address], [place] [address] Oct, [facility] [address] [id number] [address] [place] [address], [place] [address] Oct, [facility] [address] [id number] [address] [place] [address], [place] [address] Sep, [facility] [address] [id number] [address] [place] [address], [place] [address] Sep, [facility] [address] [id number] [address] [place] [address], [place] [address] Sep, [facility] [address] [id number] [address] [place] [address], [place] [address] 15 Sep, 2014 [facility] [address] [id number] [address] [place] [address], [place] [address] Aug, [facility] [place] [address] [id number] [address] [place] [address], [place] [address] Aug, [facility] [place] [address] [id number] [address] [place] [address], [place] [address] Aug, [facility] [place] [address] [id number] [address] [place] [address], [place] [address] Aug, [facility] [place] [address] [id number] [address] [place] [address], [place] [address] Aug, [facility] [place] [address] [id number] [address] [place] [address], [place] [address] Aug, [facility] [address] [id number] [address] [place] [address], [place] [address] Jul, [facility] [place] [address] [id number] [address] [place] [address], [place] [address] 29 Jul, 2014 [facility] [place] [address] [id number] [address] [place] [address], [place] [address] 24 Jul, 2014 [facility] [address] [id number] [address] [place] [address], [place] [address] 24 Jul, 2014 [facility] [place] [address] [id number] [address] [place] [address], [place] [address] 15 Jul, 2014 [facility] [address] [id number] [address] [place] [address], [place] [address] 15 Jul, 2014 [facility] [address] [id number] [address] [place] [address], [place] [address] 27 Jun, 2014 [facility] [address] [id number] [address] [place] [address], [place] [address] 27 Jun, 2014 [facility] [address] [id number] [address] [place] [address], [place] [address] Jun, 2013 [facility] [address] [id number] [facility] [place] [address] 26 Jun, 2013 [facility] [address] [id number] [facility] [place] [address] Jun, 2013 [facility] [address] [id number] [address] [place] [address], [place] [address] Jun, 2013 [facility] [address] [id number] [address] [place] [address], [place] [address] 16 Jun, 2013 [facility] [address] [id number] [address] [place] [address], [place] [address] 16 Jun, 2013 [facility] [address] [id number] [address] [place] [address], [place] [address] Jun, 2013 [facility] [address] [id number] [address] [place] [address], [place] [address] Jun, 2013 [facility] [address] [id number] [address] [place] [address], [place] [address] Jun, [facility] [address] [id number] [address] [place] [address], [place] [address] May, [facility] [address] [id number] [address] [place] [address], [place] [address] May, [facility] [address] [id number] [address] [place] [address], [place] [address] May, [facility] [address] [id number] [address] [place] [address], [place] [address] May, [facility] [address] [id number] [address] [place] [address], [place] [address] May, [facility] [address] [id number] [address] [place] [address], [place] [address] May, [facility] [address] [id number] [address] [place] [address], [place] [address] May, [facility] [address] [id number] [address] [place] [address], [place] [address] May, [facility] [address] [id number] [address] [place] [address], [place] [address] May, [facility] [address] [id number] [address] [place] [address], [place] [address] May, [facility] [address] [id number] [address] [place] [address], [place] [address] Apr, [facility] [address] [id number] [address] [place] [address], [place] [address] Apr, [facility] [address] [id number] [address] [place] [address], [place] [address] Apr, [facility] [address] [id number] [address] [place] [address], [place] [address] Apr, [facility] [address] [id number] [address] [place] [address], [place] [address] Apr, [facility] [address] [id number] [address] [place] [address], [place] [address] Apr, [facility] [address] [id number] [address] [place] [address], [place] [address] Apr, [facility] [address] [id number] [address] [place] [address], [place] [address] Apr, [facility] [address] [id number] [address] [place] [address], [place] [address] Apr, [facility] [address] [id number] [address] [place] [address], [place] [address] Apr, [facility] [address] [id number] [address] [place] [address], [place] [address] Mar, [facility] [address] [id number] [address] [place] [address], [place] [address] Mar, [facility] [address] [id number] [address] [place] [address], [place] [address] Mar, [facility] [address] [id number] [address] [place] [address], [place] [address] Mar, [facility] [address] [id number] [address] [place] [address], [place] [address] Mar, [facility] [address] [id number] [address] [place] [address], [place] [address] Mar, [facility] [address] [id number] [address] [place] [address], [place] [address] Mar, [facility] [address] [id number] [address] [place] [address], [place] [address] Mar, [facility] [address] [id number] [address] [place] [address], [place] [address] Mar, [facility] [address] [id number] [address] [place] [address], [place] [address] Mar, [facility] [address] [id number] [address] [place] [address], [place] [address] Mar, [facility] [address] [id number] [address] [place] [address], [place] [address] Mar, [facility] [address] [id number] [address] [place] [address], [place] [address] Mar, [facility] [address] [id number] [address] [place] [address], [place] [address] Mar, [facility] [address] [id number] [address] [place] [address], [place] [address] Mar, [facility] [address] [id number] [address] [place] [address], [place] [address] Mar, [facility] [address] [id number] [address] [place] [address], [place] [address] Mar, [facility] [address] [id number] [address] [place] [address], [place] [address] 09 Mar, 2014 [facility] [address] [id number] [address] [place] [address], [place] [address] Mar, [facility] [address] [id number] [facility] [place] [address] Mar, [facility] [address] [id number] [address] [place] [address], [place] [address] February, [facility] [address] [id number] [address] [place] [address], [place] [address] February, [facility] [address] [id number] [address] [place] [address], [place] [address] February, [facility] [address] [id number] [address] [place] [address], [place] [address] February, [facility] [address] [id number] [address] [place] [address], [place] [address] February, [facility] [address] [id number] [address] [place] [address], [place] [address] February, [facility] [address] [id number] [address] [place] [address], [place] [address] February, [facility] [address] [id number] [address] [place] [address], [place] [address] February, [facility] [address] [id number] [address] [place] [address], [place] [address] February, [facility] [address] [id number] [address] [place] [address], [place] [address] February, [facility] [address] [id number] [address] [place] [address], [place] [address] February, [facility] [address] [id number] [address] [place] [address], [place] [address] February, [facility] [address] [id number] [address] [place] [address], [place] [address] February, [facility] [address] [id number] [address] [place] [address], [place] [address] February, [facility] [address] [id number] [address] [place] [address], [place] [address] February, [facility] [address] [id number] [address] [place] [address], [place] [address] February, [facility] [address] [id number] [address] [place] [address], [place] [address] February, [facility] [address] [id number] [address] [place] [address], [place] [address] February, [facility] [address] [id number] [address] [place] [address], [place] [address] February, [facility] [address] [id number] [address] [place] [address], [place] [address] February, [facility] [address] [id number] [address] [place] [address], [place] [address] February, [facility] [address] [id number] [address] [place] [address], [place] [address] Jan, [facility] [address] [id number] [address] [place] [address], [place] [address] Jan, [facility] [address] [id number] [address] [place] [address], [place] [address] Jan, [facility] [address] [id number] [address] [place] [address], [place] [address] Jan, [facility] [address] [id number] [address] [place] [address], [place] [address] Jan, [facility] [address] [id number] [address] [place] [address], [place] [address] Jan, [facility] [address] [id number] [address] [place] [address], [place] [address] Jan, [facility] [address] [id number] [address] [place] [address], [place] [address] Jan, [facility] [address] [id number] [address] [place] [address], [place] [address] Dec, [facility] [address] [id number] [facility] [place] [address] 20 Dec, 2013 [facility] [address] [id number] [facility] [place] [address] 20 Dec, 2013 [facility] [address] [id number] [facility] [place] [address] 19 Dec, 2013 [facility] [address] [id number] [address] [place] [address], [place] [address] 19 Dec, 2013 [facility] [address] [id number] [address] [place] [address], [place] [address] 15 Dec, 2013 [facility] [address] [id number] [address] [place] [address], [place] [address] 15 Dec, 2013 [facility] [address] [id number] [address] [place] [address], [place] [address] 11 Dec, 2013 [facility] [address] [id number] [address] [place] [address], [place] [address] 10 Dec, 2013 [facility] [address] [id number] [address] [place] [address], [place] [address] 10 Dec, 2013 [facility] [address] [id number] [address] [place] [address], [place] [address] 18 Nov, 2013 [facility] [address] [id number] [address] [place] [address], [place] [address] 17 Nov, 2013 [facility] [address] [id number] [address] [place] [address], [place] [address] Nov, [facility] [address] [id number] [address] [place] [address], [place] [address] 05 Nov, 2013 [facility] [address] [id number] [address] [place] [address], [place] [address] 05 Nov, 2013 [facility] [facility] [address] [id number] [address] [place] [address], [place] [address] Oct, [facility] [place] [facility] [address] [id number] [address] [place] [address] Oct, [facility] [address] [id number] [address] [place] [address], [place] [id number] Oct, [facility] [address] [id number] [address] [place] [address], [place] [id number] Sep, [facility] [address] [id number] [address] [place] [address], [place] [id number] Sep, [facility] [address] [id number] [address] [place] [address], [place] [id number] Sep, [facility] [address] [id number] [address] [place] [address], [place] [address] Sep, [facility] [address] [id number] [address] [place] [address], [place] [id number] Aug, [facility] [address] [id number] [address] [place] [address], [place] [id number] Aug, [facility] [address] [id number] [address] [place] [address], [place] [address] Jul, [facility] [address] [id number] [address] [place] [address], [place] [id number] Jul, [facility] [address] [id number] [address] [place] [address], [place] [address] Jul, [facility] [address] [id number] [address] [place] [address], [place] [address] Jul, [facility] [address] [id number] [address] [place] [address], [place] [id number] Jul, [facility] [address] [id number] [address] [place] [address], [place] [id number] Jun, [facility] [address] [id number] [address] [place] [address], [place] [address] Jun, [facility] [address] [id number] [address] [place] [address], [place] [id number] 19 Jun, 2013 [facility] [facility] [address] [id number] [address] [place] [address], [place] [id number] 18 Jun, 2013 [facility] [address] [id number] [address] [place] [address], [place] [id number] 16 Jun, 2013 [facility] [address] [id number] [address] [place] [address], [place] [id number] 12 Jun, 2013 [facility] [address] [id number] [address] [place] [address], [place] [id number] 11 Jun, 2013 [facility] [address] [id number] [address] [place] [address], [place] [id number] 30 May, 2013 [facility] [address] [id number] [address] [place] [address], [place] [id number] May, [facility] [address] [id number] [address] [place] [address], [place] [id number] Apr, [facility] [address] [id number] [address] [place] [address], [place] [id number] Apr, [facility] [address] [id number] [address] [place] [address], [place] [id number] Apr, [facility] [address] [id number] [address] [place] [address], [place] [id number] Mar, [facility] [address] [id number] [address] [place] [address], [place] [address] Mar, [facility] [address] [id number] [address] [place] [address], [place] [id number] February, [facility] [address] [id number] [address] [place] [address], [place] [id number] February, [facility] [address] [id number] [address] [place] [address], [place] [id number] February, [facility] [address] [id number] [address] [place] [address], [place] [id number] February, [facility] [address] [id number] [address] [place] [address], [place] [id number] 19 Jan, 2013 [facility] [address] [id number] [address] [place] [address], [place] [id number] 17 Jan, 2013 [facility] [address] [id number] [address] [place] [address], [place] [id number] 16 Jan, 2013 [facility] [address] [id number] [address] [place] [address], [place] [id number] 29 Dec, 2012 [facility] [address] [id number] [address] [place] [address], [place] [address] Dec, [facility] [address] [id number] [address] [place] [address], [place] [id number] Dec, [facility] [address] [id number] [address] [place] [address], [place] [id number] 08 Dec, 2012 [facility] [address] [id number] [address] [place] [address], [place] [id number] Nov, [facility] [address] [id number] [address] [place] [address], [place] [id number] Nov, [facility] [address] [id number] [address] [place] [address], [place] [id number] Oct, [facility] [address] [id number] [address] [place] [address], [place] [id number] Oct, [facility] [address] [id number] [address] [place] [address], [place] [id number] Oct, [facility] [address] [id number] [address] [place] [address], [place] [id number] Oct, [facility] [address] [id number] [address] [place] [address], [place] [id number] Aug, [facility] [address] [id number] [address] [place] [address], [place] [id number] Aug, [facility] [address] [id number] [address] [place] [address], [place] [address] 18 Jun, 2012 [facility] [address] [id number] [facility] [place] [address] May, [facility] [address] [id number] [address] [place] [address], [place] [address] May, [facility] [address] [id number] [address] [place] [address], [place] [address] Apr, [facility] [address] [id number] [address] [place] [address], [place] [address] Apr, [facility] [address] [id number] [address] [place] [address], [place] [address] Apr, [facility] [address] [id number] [address] [place] [address], [place] [address] Mar, [facility] [address] [id number] [address] [place] [address], [place] [id number] Mar, [facility] [address] [id number] [address] [place] [address], [place] [address] Mar, [facility] [address] [id number] [address] [place] [address], [place] [id number] Mar, [facility] [address] [id number] [address] [place] [address], [place] [address] Mar, [facility] [address] [id number] [address] [place] [address], [place] [address] February, [facility] [address] [id number] [address] [place] [address], [place] [id number] February, [facility] [address] [id number] [address] [place] [address], [place] [address] February, [facility] [address] [id number] [address] [place] [address], [place] [address] February, [facility] [address] [id number] [address] [place] [address], [place] [address] February, [facility] [address] [id number] [address] [place] [address], [place] [address] February, [facility] [address] [id number] [address] [place] [address], [place] [id number] February, [facility] [address] [id number] [address] [place] [address], [place] [address] Jan, [facility] [address] [id number] [address] [place] [address], [place] [address] Jan, [facility] [address] [id number] [address] [place] [address], [place] [address] 17 Jan, 2012 [facility] [address] [id number] [address] [place] [address], [place] [address] Jan, [facility] [address] [id number] [address] [place] [address], [place] [address] Jan, [facility] [address] [id number] [address] [place] [address], [place] [address] Jan, [facility] [address] [id number] [address] [place] [address], [place] [id number] 30 Dec, 2011 [facility] [address] [id number] [address] [place] [address], [place] [id number] 24 Dec, 2011 [facility] [address] [id number] [address] [place] [address], [place] [address] Dec, [facility] [address] [id number] [address] [place] [address], [place] [address] Dec, [facility] [address] [id number] [address] [place] [address], [place] [address] Dec, [facility] [address] [id number] [address] [place] [address], [place] [address] Nov, [facility] [address] [id number] [address] [place] [address], [place] [address] Nov, [facility] [address] [id number] [address] [place] [address], [place] [address] Nov, [facility] [address] [id number] [address] [place] [address], [place] [address] 14 Nov, 2011 [facility] [address] [id number] [address] [place] [address], [place] [address] 10 Nov, 2011 [facility] [address] [id number] [address] [place] [address], [place] [address] Nov, [facility] [address] [id number] [address] [place] [address], [place] [address] Oct, [facility] [address] [id number] [address] [place] [address], [place] [address] Oct, [facility] [address] [id number] [address] [place] [address], [place] [address] Oct, [facility] [address] [id number] [address] [place] [address], [place] [address] Oct, [facility] [address] [id number] [address] [place] [address], [place] [address] Oct, [facility] [address] [id number] [address] [place] [address], [place] [address] Sep, [facility] [address] [id number] [address] [place] [address], [place] [address] Sep, [facility] [address] [id number] [address] [place] [address], [place] [address] Sep, [facility] [address] [id number] [address] [place] [address], [place] [address] 14 Sep, 2011 [facility] [address] [id number] [address] [place] [address], [place] [address] 14 Sep, 2011 [facility] [address] [id number] [address] [place] [address], [place] [id number] 13 Sep, 2011 [facility] [address] [id number] [address] [place] [address], [place] [address] 12 Sep, 2011 [facility] [address] [id number] [address] [place] [address], [place] [address] Sep, [facility] [address] [id number] [address] [place] [address], [place] [address] Sep, [facility] [address] [id number] [address] [place] [address], [place] [address] Aug, [facility] [address] [id number] [address] [place] [address], [place] [address] Aug, [facility] [address] [id number] [address] [place] [address], [place] [address] Aug, [facility] [address] [id number] [address] [place] [address], [place] [address] Aug, [facility] [address] [id number] [address] [place] [address], [place] [address] Aug, [facility] [address] [id number] [address] [place] [address], [place] [address] Aug, [facility] [address] [id number] [address] [place] [address], [place] [address] Aug, [facility] [address] [id number] [address] [place] [address], [place] [address] Aug, [facility] [address] [id number] [address] [place] [address], [place] [address] Aug, [facility] [address] [id number] [address] [place] [address], [place] [id number] Aug, [facility] [address] [id number] [address] [place] [address], [place] [address] Aug, [facility] [address] [id number] [address] [place] [address], [place] [address] Aug, [facility] [address] [id number] [address] [place] [address], [place] [address] Jul, [facility] [address] [id number] [address] [place] [address], [place] [address] Jul, [facility] [address] [id number] [address] [place] [id number] Jul, [facility] [address] [id number] [address] [place] [id number] Jul, [facility] [address] [id number] [address] [place] [id number] Jul, [facility] [address] [id number] [address] [place] [id number] Jul, [facility] [address] [id number] [address] [place] [id number] Jul, [facility] [address] [id number] [address] [place] [id number] Jul, [facility] [address] [id number] [address] [place] [id number] Jul, [facility] [address] [id number] [address] [place] [id number] Jul, [facility] [address] [id number] [address] [place] [id number] Nov, [facility] [address] [id number] [address] [place] [id number] Aug, [facility] [address] [id number] [address] [place] [id number] Aug, [facility] [address] [id number] [address] [place] [id number] Aug, [facility] [address] [id number] [address] [place] [id number] Aug, [facility] [address] [id number] [address] [place] [id number] Jul, IMMUNIZATIONS No Known Immunizations SOCIAL HISTORY Never Assessed REASON FOR VISIT EMR-[facility] [place] PLAN OF CARE [...] Suicide attempt by hanging 2015 Hospitalization History [facility] 01/30/2018-02/10/20 08 Hospitalization History [facility] 05/04/18-
--- OUTSIDE RECORDS SUMMARY | 2020-04-04 02:31 | XMS REPORT ---
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 Active 89996879 Problem Generalized anxiety disorder 300.02 A ctive 34557833 Problem Obsessive-compulsive disorders 300.3 Active 683590294 Problem Catatonic schizophrenia, 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 245045355 Problem Disorganized schizophrenia, 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 54590533 Problem Paranoid schizophrenia F20.0 Active 01260378 Problem Borderline personality disorder F60.3 Active 03128866 Problem Paranoid schizophrenia, unspecified condition 295.30 Active 00519014 Problem Schizoaffective disorder, depressive type F25.1 Active 09344022 Problem Bipolar disorder, unspecified 296.80 Active 62683198 Problem Schizoaffective disorder, unspecified F25.9 Active 51891695 Problem Attention deficit hyperactivity disorder (ADHD), inattentive type, 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 98441284 Problem Posttraumatic stress disorder F43.10 Active 17474842 Problem High risk medication use Z79.899 Activ e [id number] ALLERGIES No Information ENCOUNTERS Encounter Location Date Diagnosis [facility], [place] [address] [id number] [address] [place] [phone] Jan, [facility] [place] [address] [id number] [address] [place] [phone] Dec, Paranoid schizophrenia F20.0 ; Posttraumatic stress disorder F43.10 ; Attention deficit hyperactivity disorder (ADHD), inattentive type, 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 and Borderline personality disorder F60.3 [facility], [place] [address] [id number] [address] [place] [phone] Dec, Paranoid schizophrenia F20.0 ; Posttraumatic stress disorder F43.10 ; Attention deficit hyperactivity disorder (ADHD), inattentive type, 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 and Borderline personality disorder F60.3 [facility], [place] [address] [id number] [address] [place] [phone] Oct, Paranoid schizophrenia F20.0 ; Posttraumatic stress disorder F43.10 ; Attention deficit hyperactivity disorder (ADHD), inattentive type, 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 and Borderline personality disorder F60.3 [facility], [place] [address] [id number] [address] [place] [phone] Oct, Paranoid schizophrenia F20.0 ; Posttraumatic stress disorder F43.10 ; Attention deficit hyperactivity disorder (ADHD), inattentive type, 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 and Borderline personality disorder F60.3 [facility], [place] [address] [id number] [address] [place] [phone] Aug, [facility], [place] [id number] [place] [phone] Aug, Paranoid schizophrenia F20.0 ; Posttraumatic stress disorder F43.10 ; Attention deficit hyperactivity disorder (ADHD), inattentive type, 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 and Borderline personality disorder F60.3 [facility] [address] [id number] [address] [place] [phone] Jul, Dry skin dermatitis L85.3 [facility], [place] [address] [id number] [address] [place] [phone] Jul, [facility], [place] [address] [id number] [address] [place] [phone] Jul, Paranoid schizophrenia F20.0 [facility], [place] [address] [id number] [address] [place] [phone] May, Paranoid schizophrenia F20.0 ; Posttraumatic stress disorder F43.10 ; Attention deficit hyperactivity disorder (ADHD), inattentive type, 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 and Borderline personality disorder F60.3 [facility], [place] [address] [id number] [address] [place] [phone] May, [facility], [place] [address] [id number] [address] [address] May, Paranoid schizophrenia F20.0 [facility], [place] [address] [id number] [address] [place] [address], [place] [address] May, Paranoid schizophrenia F20.0 ; Posttraumatic stress disorder F43.10 ; Attention deficit hyperactivity disorder (ADHD), inattentive type, 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 and Borderline personality disorder F60.3 [facility], [place] [address] [id number] [facility] [place] [address] Apr, [facility], [place] [address] [id number] [address] [place] [address], [place] [address] Apr, Paranoid schizophrenia F20.0 ; Posttraumatic stress disorder F43.10 ; Attention deficit hyperactivity disorder (ADHD), inattentive type, 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 and Borderline personality disorder F60.3 [facility], [place] [address] [id number] [address] [place] [phone] Apr, [facility], [place] [address] [id number] [address] [place] [phone] Apr, Schizoaffective disorder, de pressive type F25.1 and Borderline personality disorder F60.3 [facility], [place] [address] [id number] [address] [place] [phone] Apr, Paranoid schizophrenia F20.0 ; Posttraumatic stress disorder F43.10 ; Attention deficit hyperactivity disorder (ADHD), inattentive type, 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 and Borderline personality disorder F60.3 [facility], [place] [address] [id number] [address] [place] [phone] Apr, [facility], [place] [address] [id number] [address] [place] [phone] Apr, Paranoid schizophrenia F20.0 ; Posttraumatic stress disorder F43.10 ; Attention deficit hyperactivity disorder (ADHD), inattentive type, 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 and Borderline personality disorder F60.3 [facility], [place] [address] [id number] [address] [place] [phone] Apr, [facility], [place] [address] [id number] [address] [place] [phone] Mar, Paranoid schizophrenia F20.0 [facility], [place] [address] [id number] [address] [place] [phone] Mar, [facility], [place] [address] [id number] [address] [place] [phone] Mar, Paranoid schizophrenia F20.0 ; Posttraumatic stress disorder F43.10 ; Attention deficit hyperactivity disorder (ADHD), inattentive type, 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 and Borderline personality disorder F60.3 [facility], [place] [address] [id number] [address] [place] [phone] February, Paranoid schizophrenia F20.0 [facility], [place] [address] [id number] [address] [place] [phone] February, Paranoid schizophrenia F20.0 ; Posttraumatic stress disorder F43.10 ; Attention deficit hyperactivity disorder (ADHD), inattentive type, 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 and Borderline personality disorder F60.3 [facility] [place] [address] [id number] [address] [place] [phone] February, Paranoid schizophrenia F20.0 ; Posttraumatic stress disorder F43.10 ; Attention deficit hyperactivity disorder (ADHD), inattentive type, 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 and Borderline personality disorder F60.3 [facility] [place] [address] [id number] [address] [place] [phone] February, [facility], [place] [address] [id number] [address] [place] [phone] February, Paranoid schizophrenia F20.0 [facility], [place] [address] [id number] [address] [place] [phone] February, Paranoid schizophrenia F20.0 [facility], [place] [address] [id number] [address] [place] [phone] February, Paranoid schizophrenia F20.0 ; Posttraumatic stress disorder F43.10 ; Attention deficit hyperactivity disorder (ADHD), inattentive type, 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 and Borderline personality disorder F60.3 [facility], [place] [address] [id number] [address] [place] [phone] Jan, Paranoid schizophrenia F20.0 ; Posttraumatic stress disorder F43.10 ; Attention deficit hyperactivity disorder (ADHD), inattentive type, 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 and Borderline personality disorder F60.3 [facility], [place] [address] [id number] [address] [place] [phone] Jan, Paranoid schizophrenia F20.0 [facility], [place] [address] [id number] [address] [place] [phone] Jan, Paranoid schizophrenia F20.0 [facility], [place] [address] [id number] [address] [place] [phone] Jan, Paranoid schizophrenia F20.0 ; Posttraumatic stress disorder F43.10 ; Attention deficit hyperactivity disorder (ADHD), inattentive type, 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 and Borderline personality disorder F60.3 [facility], [place] [address] [id number] [address] [place] [phone] Dec, [facility], [place] [address] [id number] [address] [place] [phone] Nov, Paranoid schizophrenia F20.0 ; Posttraumatic stress disorder F43.10 ; Attention deficit hyperactivity disorder (ADHD), inattentive type, 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 and Borderline personality disorder F60.3 [facility], [place] [address] [id number] [address] [place] [phone] Nov, [facility], [place] [address] [id number] [address] [place] [phone] Oct, Paranoid schizophrenia F20.0 [facility], [place] [address] [id number] [address] [place] [phone] Oct, Paranoid schizophrenia F20.0 ; Posttraumatic stress disorder F43.10 ; Attention deficit hyperactivity disorder (ADHD), inattentive type, 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 ; Borderline personality disorder F60.3 and Other fci (current) drug therapy Z79.899 [facility], [place] [address] [id number] [address] [place] [phone] Oct, [facility], [place] [address] [id number] [address] [place] [phone] Oct, [facility], [place] [address] [id number] [address] [place] [phone] Sep, [facility], [place] [address] [id number] [address] [place] [phone] Sep, Paranoid schizophrenia F20.0 ; Posttraumatic stress disorder F43.10 ; Attention deficit hyperactivity disorder (ADHD), inattentive type, 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 and Borderline personality disorder F60.3 [facility], [place] [address] [id number] [address] [place] [phone] Sep, Paranoid schizophrenia F20.0 [facility], [place] [address] [id number] [address] [place] [phone] Aug, Paranoid schizophrenia F20.0 ; Posttraumatic stress disorder F43.10 ; Attention deficit hyperactivity disorder (ADHD), inattentive type, 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 and Borderline personality disorder F60.3 [facility], [place] [address] [id number] [address] [place] [phone] Aug, Paranoid schizophrenia F20.0 ; Posttraumatic stress disorder F43.10 ; Attention deficit hyperactivity disorder (ADHD), inattentive type, 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 and Borderline personality disorder F60.3 [facility], [place] [address] [id number] [address] [place] [phone] Aug, [facility], [place] [address] [id number] [address] [place] [phone] Jul, Paranoid schizophrenia F20.0 ; Posttraumatic stress disorder F43.10 ; Attention deficit hyperactivity disorder (ADHD), inattentive type, 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 and Borderline personality disorder F60.3 [facility], [place] [address] [id number] [address] [place] [phone] Jul, Paranoid schizophrenia F20.0 [facility], [place] [address] [id number] [address] [place] [phone] Jul, Paranoid schizophrenia F20.0 ; Posttraumatic stress disorder F43.10 ; Attention deficit hyperactivity disorder (ADHD), inattentive type, 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 and Borderline personality disorder F60.3 [facility], [place] [address] [id number] [address] [place] [phone] Jun, Paranoid schizophrenia F20.0 ; Posttraumatic stress disorder F43.10 ; Attention deficit hyperactivity disorder (ADHD), inattentive type, 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 and Borderline personality disorder F60.3 [facility], [place] [address] [id number] [address] [place] [phone] May, Other fci (current) dr ug therapy Z79.899 [facility], [place] [address] [id number] [address] [place] [phone] May, [facility], [place] [address] [id number] [address] [place] [phone] May, [facility], [place] [address] [id number] [address] [place] [phone] May, Attention deficit hyperactiv ity disorder (ADHD), inattentive type, mild F90.0 [facility], [place] [address] [id number] [address] [place] [phone] May, [facility], [place] [address] [id number] [address] [place] [phone] May, Attention deficit hyperactiv ity disorder (ADHD), inattentive type, mild F90.0 [facility], [place] [address] [id number] [address] [place] [phone] May, Paranoid schizophrenia F20.0 ; Posttraumatic stress disorder F43.10 ; Attention deficit hyperactivity disorder (ADHD), inattentive type, 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 and Other fci (current) drug therapy Z79.899 [facility], [place] [address] [id number] [address] [place] [id number] Apr, Paranoid schizophrenia F20.0 [facility], [place] [address] [id number] [address] [place] [phone] Apr, Paranoid schizophrenia F20.0 ; Posttraumatic stress disorder F43.10 and Attention deficit hyperactivity disorder (ADHD), inattentive type, 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 [facility], [place] [address] [id number] [address] [place] [phone] February, [facility] [place] [address] [id number] [address] [place] [phone] February, Paranoid schizophrenia F20.0 ; Posttraumatic stress disorder F43.10 and Attention deficit hyperactivity disorder (ADHD), inattentive type, 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 [facility], [place] [address] [id number] [address] [place] [phone] February, Paranoid schizophrenia F20.0 ; Posttraumatic stress disorder F43.10 and Attention deficit hyperactivity disorder (ADHD), inattentive type, 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 [facility], [place] [address] [id number] [address] [place] [id number] Jan, Paranoid schizophrenia F20.0 ; Posttraumatic stress disorder F43.10 and Attention deficit hyperactivity disorder (ADHD), inattentive type, 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 [facility] [address] [id number] [address] [place] [id number] Dec, Dental examination Z01.20 [facility] [address] [id number] [address] [place] [address] [id number] Nov, Dental examination Z01.20 [facility] [address] [id number] [address] [place] [address] [id number] Nov, Dental examination Z01.20 [facility] [address] [id number] [address] [place] [address] [id number] Nov, Dental caries K02.9 [facility], [place] [address] [id number] [address] [place] [phone] Nov, High risk medication use Z79 .899 [facility] [place] [address] [id number] [address] [place] [phone] Nov, Paranoid schizophrenia F20.0 ; Posttraumatic stress disorder F43.10 ; Attention deficit hyperactivity disorder (ADHD), inattentive type, 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 and Borderline personality disorder in adult F60.3 [facility] [address] [id number] [address] [place] [id number] Oct, Dental caries K02.9 [facility] [place] [address] [id number] [address] [place] [phone] Sep, Paranoid schizophrenia F20.0 ; Posttraumatic stress disorder F43.10 and Attention deficit hyperactivity disorder (ADHD), inattentive type, 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 [facility] [place] [address] [id number] [address] [place] [phone] Aug, Paranoid schizophrenia F20.0 ; Posttraumatic stress disorder F43.10 and Attention deficit hyperactivity disorder (ADHD), inattentive type, 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 [facility] [address] [id number] [address] [place] [phone] Aug, Strep throat J02.0 and Cough R05 [facility] [place] [address] [id number] [address] [place] [phone] Aug, [facility] [place] [address] [id number] [address] [place] [phone] 24 Jul, 2016 Paranoid schizophrenia F20.0 ; Posttraumatic stress disorder F43.10 and Attention deficit hyperactivity disorder (ADHD), inattentive type, 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 [facility] [place] [address] [id number] [address] [place] [phone] Jul, [facility] [place] [address] [id number] [address] [place] [phone] Jun, Paranoid schizophrenia F20.0 ; Posttraumatic stress disorder F43.10 and Attention deficit hyperactivity disorder (ADHD), inattentive type, 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 [facility] [address] [id number] [address] [place] [id number] Jun, Dental examination Z01.20 [facility] [place] [address] [id number] [address] [place] [phone] Jun, [facility] [place] [address] [id number] [address] [place] [phone] May, Paranoid schizophrenia F20.0 [facility] [place] [address] [id number] [address] [place] [phone] May, Paranoid schizophrenia F20.0 ; Posttraumatic stress disorder F43.10 and Attention deficit hyperactivity disorder (ADHD), inattentive type, 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 [facility] [place] [address] [id number] [address] [place] [phone] May, [facility] [place] [address] [id number] [address] [place] [phone] May, Paranoid schizophrenia F20.0 [facility] [place] [address] [id number] [address] [place] [phone] May, [facility] [place] [address] [id number] [address] [place] [phone] May, Paranoid schizophrenia F20.0 [facility] [place] [address] [id number] [address] [place] [phone] May, Schizoaffective disorder, un specified F25.9 [facility] [place] [address] [id number] [address] [place] [phone] May, Schizoaffective disorder, un specified F25.9 [facility] [place] [address] [id number] [address] [place] [phone] May, [facility] [place] [address] [id number] [address] [place] [phone] May, Paranoid schizophrenia F20.0 [facility] [place] [address] [id number] [address] [place] [id number] May, Paranoid schizophrenia F20.0 ; Posttraumatic stress disorder F43.10 and Attention deficit hyperactivity disorder (ADHD), inattentive type, 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 [facility] [address] [id number] [address] [place] [address], [place] [address] Mar, [facility] [address] [id number] [facility] [place] [address] Mar, Paranoid schizophrenia F20.0 ; Posttraumatic stress disorder F43.10 and Attention deficit hyperactivity disorder (ADHD), inattentive type, 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 [facility] [place] [address] [id number] [address] [place] [address], [place] [address] Mar, Paranoid schizophrenia F20.0 [facility] [place] [address] [id number] [address] [place] [address], [place] [address] Mar, Paranoid schizophrenia F20.0 ; Attention deficit hyperactivity disorder (ADHD), inattentive type, 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 and Posttraumatic stress disorder F43.10 [facility] [place] [address] [id number] [address] [place] [phone] Mar, [facility] [address] [id number] [address] [place] [address], [place] [address] Mar, Paranoid schizophrenia F20.0 ; Posttraumatic stress disorder F43.10 and Attention deficit hyperactivity disorder (ADHD), inattentive type, 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 [facility] [address] [id number] [address] [place] [address], [place] [address] February, [facility] [address] [id number] [address] [place] [phone] February, [facility] [address] [id number] [address] [place] [address], [place] [address] February, [facility] [address] [id number] [address] [place] [phone] February, [facility] [address] [id number] [address] [place] [address], [place] [address] Jan, Paranoid schizophrenia F20.0 [facility] [address] [id number] [address] [place] [address] [id number] Jan, Dental examination Z01.20 [facility] [address] [id number] [address] [place] [id number] Jan, Dental caries K02.9 [facility] [address] [id number] [address] [place] [phone] Jan, Dental examination Z01.20 [facility] [address] [id number] [address] [place] [id number] Dec, Encounter for dental examina tion Z01.20 [facility] [place] [address] [id number] [address] [place] [phone] Dec, Paranoid schizophrenia F20.0 [facility] [address] [id number] [address] [place] [phone] Dec, Dental examination Z01.20 [facility] [place] [address] [id number] [address] [place] [phone] Dec, [facility] [place] [address] [address] [id number] [address] [place] [address] Dec, Paranoid schizophrenia F20.0 ; Posttraumatic stress disorder F43.10 and Attention deficit hyperactivity disorder (ADHD), inattentive type, 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 [facility], [place] [address] [id number] [address] [place] [address] Nov, Schizoaffective disorder, un specified F25.9 [facility] [place] [address] [id number] [address] [place] [address] Oct, Paranoid schizophrenia F20.0 [facility] [place] [address] [id number] [address] [place] [address] Oct, [facility] [place] [address] [id number] [address] [place] [address] Sep, Paranoid schizophrenia F20.0 ; Posttraumatic stress disorder F43.10 and Attention deficit hyperactivity disorder (ADHD), inattentive type, 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 [facility] [place] [address] [id number] [address] [place] [address] Sep, [facility] [place] [address] [facility] [id number] [address] [place], [place] [address] Sep, Paranoid schizophrenia F20.0 ; Posttraumatic stress disorder F43.10 and Attention deficit hyperactivity disorder (ADHD), inattentive type, 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 [facility] [place] [address] [facility] [id number] [address] [place] [address] Aug, Paranoid schizophrenia F20.0 [facility] [place] [address] [facility] [id number] [address] [place] [address] Aug, [facility] [place] [address] [facility] [id number] [address] [place] [address] Aug, Posttraumatic stress disorde r F43.10 ; Paranoid schizophrenia F20.0 and Attention deficit hyperactivity disorder (ADHD), inattentive type, 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 [facility] [place] [address] [facility] [id number] [address] [place] [address] Jul, Bipolar disorder, unspecifie d F31.9 [facility] [place] [address] [facility] [id number] [address] [place] [address] Jul, [facility] [place] [address] [facility] [id number] [address] [place] [address] Jun, [facility] [place] [address] [facility] [id number] [address] [place] [address] Jun, Schizoaffective disorder, ch ronic 295.72 ; Posttraumatic stress disorder 309.81 and Attention deficit disorder of childhood without mention of hyperactivity 314.00 [facility] [place] [address] [facility] [id number] [address] [place] [address] May, [facility] [place] [address] [facility] [id number] [address] [place] [address] May, [facility] [place] [address] [facility] [id number] [address] [place] [address] May, Schizoaffective disorder, ch ronic 295.72 ; Posttraumatic stress disorder 309.81 ; Attention deficit disorder of childhood without mention of hyperactivity 314.00 and Bipolar disorder, unspecified 296.80 [facility] [place] [address] [facility] [id number] [address] [place] [address] Apr, Schizoaffective disorder, ch ronic 295.72 [facility] [place] [address] [facility] [id number] [address] [place] [address] Apr, [facility] [place] [address] [id number] [address] [place] [address] Apr, Schizoaffective disorder, ch ronic 295.72 ; Posttraumatic stress disorder 309.81 and Attention deficit disorder of childhood without mention of hyperactivity 314.00 [facility] [place] [address] [facility] [id number] [address] [place] [address] Mar, Disorganized schizophrenia, 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 [facility] [place] [address] [facility] [id number] [address] [place] [address] Mar, [facility] [place] [address] [facility] [id number] [address] [place] [address] Mar, [facility] [place] [address] [facility] [id number] [address] [place] [address] Mar, [facility] [place] [address] [facility] [id number] [address] [place] [address] Mar, [facility] [place] [address] [facility] [id number] [address] [place] [address] February, Schizoaffective disorder, ch ronic 295.72 [facility] [place] [address] [facility] [id number] [address] [place] [address] February, [facility] [place] [address] [facility] [id number] [address] [place] [address] February, Attention 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 ; Posttraumatic stress disorder 309.81 and Schizoaffective disorder, chronic 295.72 [facility] [address] [id number] [address] [place] [address], [place] [address] 29 Jan, 2015 [facility] [address] [id number] [address] [place] [address], [place] [address] 14 Jan, 2015 [facility] [address] [id number] [address] [place] [address], [place] [address] Jan, [facility] [address] [id number] [address] [place] [address], [place] [address] Dec, [facility] [address] [id number] [address] [place] [address], [place] [address] Dec, [facility] [address] [id number] [address] [place] [address], [place] [address] Dec, [facility] [address] [id number] [address] [place] [address], [place] [address] Dec, [facility] [address] [id number] [address] [place] [address], [place] [address] Dec, [facility] [address] [id number] [address] [place] [address], [place] [address] Dec, [facility] [address] [id number] [address] [place] [address], [place] [address] Dec, [facility] [address] [id number] [address] [place] [address], [place] [address] Dec, [facility] [address] [id number] [address] [place] [address], [place] [address] Nov, [facility] [address] [id number] [address] [place] [address], [place] [address] Nov, [facility] [address] [id number] [address] [place] [address], [place] [address] Nov, [facility] [address] [id number] [address] [place] [address], [place] [address] Nov, [facility] [address] [id number] [address] [place] [address], [place] [address] Nov, [facility] [address] [id number] [address] [place] [address], [place] [address] Nov, [facility] [address] [id number] [address] [place] [address], [place] [address] Nov, [facility] [address] [id number] [address] [place] [address], [place] [address] Nov, [facility] [address] [id number] [address] [place] [address], [place] [address] Nov, [facility] [address] [id number] [address] [place] [address], [place] [address] Nov, [facility] [address] [id number] [address] [place] [address], [place] [address] Oct, [facility] [address] [id number] [address] [place] [address], [place] [address] Oct, [facility] [address] [id number] [address] [place] [address], [place] [address] Oct, [facility] [address] [id number] [address] [place] [address], [place] [address] Oct, [facility] [address] [id number] [address] [place] [address], [place] [address] Oct, [facility] [address] [id number] [address] [place] [address], [place] [address] Oct, [facility] [address] [id number] [address] [place] [address], [place] [address] Oct, [facility] [address] [id number] [address] [place] [address], [place] [address] Sep, [facility] [address] [id number] [address] [place] [address], [place] [address] Sep, [facility] [address] [id number] [address] [place] [address], [place] [address] Sep, [facility] [address] [id number] [address] [place] [address], [place] [address] 15 Sep, 2014 [facility] [address] [id number] [address] [place] [address], [place] [address] Aug, [facility] [address] [id number] [address] [place] [address], [place] [address] Aug, [facility] [address] [id number] [address] [place] [address], [place] [address] Aug, [facility] [address] [id number] [address] [place] [address], [place] [address] Aug, [facility] [address] [id number] [address] [place] [address], [place] [address] Aug, [facility] [address] [id number] [address] [place] [address], [place] [address] Aug, [facility] [address] [id number] [address] [place] [address], [place] [address] Jul, [facility] [address] [id number] [address] [place] [address], [place] [address] 29 Jul, 2014 [facility] [address] [id number] [address] [place] [address], [place] [address] 24 Jul, 2014 [facility] [address] [id number] [address] [place] [address], [place] [address] 24 Jul, 2014 [facility] [address] [id number] [address] [place] [address], [place] [address] 15 Jul, 2014 [facility] [address] [id number] [address] [place] [address], [place] [address] 15 Jul, 2014 [facility] [address] [id number] [address] [place] [address], [place] [address] 27 Jun, 2014 [facility] [address] [id number] [address] [place] [address], [place] [address] 27 Jun, 2014 [facility] [address] [id number] [address] [place] [address], [place] [address] Jun, 2013 [facility] [address] [id number] [facility] [place] [address] 26 Jun, 2013 [facility] [address] [id number] [facility] [place] [address] Jun, 2013 [facility] [address] [id number] [address] [place] [address], [place] [address] Jun, 2013 [facility] [address] [id number] [address] [place] [address], [place] [address] 16 Jun, 2013 [facility] [address] [id number] [address] [place] [address], [place] [address] 16 Jun, 2013 [facility] [address] [id number] [address] [place] [address], [place] [address] Jun, 2013 [facility] [address] [id number] [address] [place] [address], [place] [address] Jun, 2013 [facility] [address] [id number] [address] [place] [address], [place] [address] Jun, [facility] [address] [id number] [address] [place] [address], [place] [address] May, [facility] [address] [id number] [address] [place] [address], [place] [address] May, [facility] [address] [id number] [address] [place] [address], [place] [address] May, [facility] [address] [id number] [address] [place] [address], [place] [address] May, [facility] [address] [id number] [address] [place] [address], [place] [address] May, [facility] [address] [id number] [address] [place] [address], [place] [address] May, [facility] [address] [id number] [address] [place] [address], [place] [address] May, [facility] [address] [id number] [address] [place] [address], [place] [address] May, [facility] [address] [id number] [address] [place] [address], [place] [address] May, [facility] [address] [id number] [address] [place] [address], [place] [address] May, [facility] [address] [id number] [address] [place] [address], [place] [address] Apr, [facility] [address] [id number] [address] [place] [address], [place] [address] Apr, [facility] [address] [id number] [address] [place] [address], [place] [address] Apr, [facility] [address] [id number] [address] [place] [address], [place] [address] Apr, [facility] [address] [id number] [address] [place] [address], [place] [address] Apr, [facility] [address] [id number] [address] [place] [address], [place] [address] Apr, [facility] [address] [id number] [address] [place] [address], [place] [address] Apr, [facility] [address] [id number] [address] [place] [address], [place] [address] Apr, [facility] [address] [id number] [address] [place] [address], [place] [address] Apr, [facility] [address] [id number] [address] [place] [address], [place] [address] Apr, [facility] [address] [id number] [address] [place] [address], [place] [address] Mar, [facility] [address] [id number] [address] [place] [address], [place] [address] Mar, [facility] [address] [id number] [address] [place] [address], [place] [address] Mar, [facility] [address] [id number] [address] [place] [address], [place] [address] Mar, [facility] [address] [id number] [address] [place] [address], [place] [address] Mar, [facility] [address] [id number] [address] [place] [address], [place] [address] Mar, [facility] [address] [id number] [address] [place] [address], [place] [address] Mar, [facility] [address] [id number] [address] [place] [address], [place] [address] Mar, [facility] [address] [id number] [address] [place] [address], [place] [address] Mar, [facility] [address] [id number] [address] [place] [address], [place] [address] Mar, [facility] [address] [id number] [address] [place] [address], [place] [address] Mar, [facility] [address] [id number] [address] [place] [address], [place] [address] Mar, [facility] [address] [id number] [address] [place] [address], [place] [address] Mar, [facility] [address] [id number] [address] [place] [address], [place] [address] Mar, [facility] [address] [id number] [address] [place] [address], [place] [address] Mar, [facility] [address] [id number] [address] [place] [address], [place] [address] Mar, [facility] [address] [id number] [address] [place] [address], [place] [address] Mar, [facility] [address] [id number] [address] [place] [address], [place] [address] 09 Mar, 2014 [facility] [address] [id number] [address] [place] [address], [place] [address] Mar, [facility] [address] [id number] [facility] [place] [address] Mar, [facility] [address] [id number] [address] [place] [address], [place] [address] February, [facility] [address] [id number] [address] [place] [address], [place] [address] February, [facility] [address] [id number] [address] [place] [address], [place] [address] February, [facility] [address] [id number] [address] [place] [address], [place] [address] February, [facility] [address] [id number] [address] [place] [address], [place] [address] February, [facility] [address] [id number] [address] [place] [address], [place] [address] February, [facility] [address] [id number] [address] [place] [address], [place] [address] February, [facility] [address] [id number] [address] [place] [address], [place] [address] February, [facility] [address] [id number] [address] [place] [address], [place] [address] February, [facility] [address] [id number] [address] [place] [address], [place] [address] February, [facility] [address] [id number] [address] [place] [address], [place] [address] February, [facility] [address] [id number] [address] [place] [address], [place] [address] February, [facility] [address] [id number] [address] [place] [address], [place] [address] February, [facility] [address] [id number] [address] [place] [address], [place] [address] February, [facility] [address] [id number] [address] [place] [address], [place] [address] February, [facility] [address] [id number] [address] [place] [address], [place] [address] February, [facility] [address] [id number] [address] [place] [address], [place] [address] February, [facility] [address] [id number] [address] [place] [address], [place] [address] February, [facility] [address] [id number] [address] [place] [address], [place] [address] February, [facility] [address] [id number] [address] [place] [address], [place] [address] February, [facility] [address] [id number] [address] [place] [address], [place] [address] February, [facility] [address] [id number] [address] [place] [address], [place] [address] Jan, [facility] [address] [id number] [address] [place] [address], [place] [address] Jan, [facility] [address] [id number] [address] [place] [address], [place] [address] Jan, [facility] [address] [id number] [address] [place] [address], [place] [address] Jan, [facility] [address] [id number] [address] [place] [address], [place] [address] Jan, [facility] [address] [id number] [address] [place] [address], [place] [address] Jan, [facility] [address] [id number] [address] [place] [address], [place] [address] Jan, [facility] [address] [id number] [address] [place] [address], [place] [address] Jan, [facility] [address] [id number] [address] [place] [address], [place] [address] Dec, [facility] [address] [id number] [facility] [place] [address] 20 Dec, 2013 [facility] [address] [id number] [facility] [place] [address] 20 Dec, 2013 [facility] [address] [id number] [facility] [place] [address] 19 Dec, 2013 [facility] [place] [facility] [address] [id number] [address] [place] [address], [place] [address] 19 Dec, 2013 [facility] [address] [id number] [address] [place] [address], [place] [address] 15 Dec, 2013 [facility] [place] [address] [id number] [address] [place] [address], [place] [address] 15 Dec, 2013 [facility] [address] [id number] [address] [place] [address], [place] [address] 11 Dec, 2013 [facility] [place] [address] [id number] [address] [place] [address], [place] [address] 10 Dec, 2013 [facility] [place] [address] [id number] [address] [place] [address], [place] [address] 10 Dec, 2013 [facility] [place] [facility] [address] [id number] [address] [place] [address], [place] [address] 18 Nov, 2013 [facility] [place] [facility] [address] [id number] [address] [place] [address], [place] [address] 17 Nov, 2013 [facility] [place] [facility] [address] [id number] [address] [place] [address], [place] [address] Nov, [facility] [place] [address] [id number] [address] [place] [address], [place] [address] 05 Nov, 2013 [facility] [place] [address] [id number] [address] [place] [address], [place] [address] 05 Nov, 2013 [facility] [place] [facility] [address] [id number] [address] [place] [address], [place] [address] Oct, [facility] [place] [facility] [address] [id number] [address] [place] [address] Oct, [facility] [address] [id number] [address] [place] [address], [place] [address] Oct, [facility] [address] [id number] [address] [place] [address], [place] [address] Sep, [facility] [address] [id number] [address] [place] [address], [place] [address] Sep, [facility] [address] [id number] [address] [place] [address], [place] [address] Sep, [facility] [address] [id number] [address] [place] [address], [place] [address] Sep, [facility] [address] [id number] [address] [place] [address], [place] [address] Aug, [facility] [address] [id number] [address] [place] [address], [place] [address] Aug, [facility] [address] [id number] [address] [place] [address], [place] [address] Jul, [facility] [address] [id number] [address] [place] [address], [place] [address] Jul, [facility] [address] [id number] [address] [place] [address], [place] [address] Jul, [facility] [address] [id number] [address] [place] [address], [place] [address] Jul, [facility] [address] [id number] [address] [place] [address], [place] [address] Jul, [facility] [address] [id number] [address] [place] [address], [place] [address] Jun, [facility] [address] [id number] [address] [place] [address], [place] [address] Jun, [facility] [address] [id number] [address] [place] [address], [place] [address] 19 Jun, 2013 [facility] [address] [id number] [address] [place] [address], [place] [address] 18 Jun, 2013 [facility] [address] [id number] [address] [place] [address], [place] [address] 16 Jun, 2013 [facility] [address] [id number] [address] [place] [address], [place] [address] 12 Jun, 2013 [facility] [address] [id number] [address] [place] [address], [place] [address] 11 Jun, 2013 [facility] [address] [id number] [address] [place] [address], [place] [address] 30 May, 2013 [facility] [address] [id number] [address] [place] [address], [place] [address] May, [facility] [address] [id number] [address] [place] [address], [place] [address] Apr, [facility] [address] [address] [id number] [address] [place] [address], [place] [address] Apr, [facility] [address] [id number] [address] [place] [address], [place] [address] Apr, [facility] [address] [id number] [address] [place] [address], [place] [address] Mar, [facility] [address] [id number] [address] [place] [address], [place] [address] Mar, [facility] [address] [id number] [address] [place] [address], [place] [address] February, [facility] [address] [id number] [address] [place] [address], [place] [address] February, [facility] [address] [id number] [address] [place] [address], [place] [address] February, [facility] [address] [id number] [address] [place] [address], [place] [address] February, [facility] [address] [id number] [address] [place] [address], [place] [address] 19 Jan, 2013 [facility] [address] [id number] [address] [place] [address], [place] [address] 17 Jan, 2013 [facility] [address] [id number] [address] [place] [address], [place] [address] 16 Jan, 2013 [facility] [address] [id number] [address] [place] [address], [place] [address] 29 Dec, 2012 [facility] [address] [id number] [address] [place] [address], [place] [address] Dec, [facility] [address] [id number] [address] [place] [address], [place] [address] Dec, [facility] [address] [id number] [address] [place] [address], [place] [address] 08 Dec, 2012 [facility] [address] [id number] [address] [place] [address], [place] [address] Nov, [facility] [address] [id number] [address] [place] [address], [place] [address] Nov, [facility] [address] [id number] [address] [place] [address], [place] [address] Oct, [facility] [address] [id number] [address] [place] [address], [place] [address] Oct, [facility] [address] [id number] [address] [place] [address], [place] [address] Oct, [facility] [address] [id number] [address] [place] [address], [place] [address] Oct, [facility] [address] [id number] [address] [place] [address], [place] [address] Aug, [facility] [address] [id number] [address] [place] [address], [place] [address] Aug, [facility] [address] [id number] [address] [place] [address], [place] [address] 18 Jun, 2012 [facility] [address] [id number] [facility] [place] [address] May, [facility] [address] [id number] [address] [place] [address], [place] [address] May, [facility] [address] [id number] [address] [place] [address], [place] [address] Apr, [facility] [address] [id number] [address] [place] [address], [place] [address] Apr, [facility] [address] [id number] [address] [place] [address], [place] [address] Apr, [facility] [address] [id number] [address] [place] [address], [place] [address] Mar, [facility] [address] [id number] [address] [place] [address], [place] [address] Mar, [facility] [address] [id number] [address] [place] [address], [place] [address] Mar, [facility] [address] [id number] [address] [place] [address], [place] [address] Mar, [facility] [address] [id number] [address] [place] [address], [place] [address] Mar, [facility] [address] [id number] [address] [place] [address], [place] [address] February, [facility] [address] [id number] [address] [place] [address], [place] [address] February, [facility] [address] [id number] [address] [place] [address], [place] [address] February, [facility] [address] [id number] [address] [place] [address], [place] [address] February, [facility] [address] [id number] [address] [place] [address], [place] [address] February, [facility] [address] [id number] [address] [place] [address], [place] [address] February, [facility] [address] [id number] [address] [place] [address], [place] [address] February, [facility] [address] [id number] [address] [place] [address], [place] [address] Jan, [facility] [address] [id number] [address] [place] [address], [place] [address] Jan, [facility] [address] [id number] [address] [place] [address], [place] [address] 17 Jan, 2012 [facility] [address] [id number] [address] [place] [address], [place] [address] Jan, [facility] [address] [id number] [address] [place] [address], [place] [address] Jan, [facility] [address] [id number] [address] [place] [address], [place] [address] Jan, [facility] [address] [id number] [address] [place] [address], [place] [address] 30 Dec, 2011 [facility] [address] [id number] [address] [place] [address], [place] [address] 24 Dec, 2011 [facility] [address] [id number] [address] [place] [address], [place] [address] Dec, [facility] [address] [id number] [address] [place] [address], [place] [address] Dec, [facility] [address] [id number] [address] [place] [address], [place] [address] Dec, [facility] [address] [id number] [address] [place] [address], [place] [address] Nov, [facility] [address] [id number] [address] [place] [address], [place] [address] Nov, [facility] [address] [id number] [address] [place] [address], [place] [address] Nov, [facility] [address] [id number] [address] [place] [address], [place] [address] 14 Nov, 2011 [facility] [address] [id number] [address] [place] [address], [place] [address] 10 Nov, 2011 [facility] [address] [id number] [address] [place] [address], [place] [address] Nov, [facility] [address] [id number] [address] [place] [address], [place] [address] Oct, [facility] [address] [id number] [address] [place] [address], [place] [address] Oct, [facility] [address] [id number] [address] [place] [address], [place] [address] Oct, [facility] [address] [id number] [address] [place] [address], [place] [address] Oct, [facility] [address] [id number] [address] [place] [address], [place] [address] Oct, [facility] [address] [id number] [address] [place] [address], [place] [address] Sep, [facility] [address] [id number] [address] [place] [address], [place] [address] Sep, [facility] [address] [id number] [address] [place] [address], [place] [address] Sep, [facility] [address] [id number] [address] [place] [address], [place] [address] 14 Sep, 2011 [facility] [address] [id number] [address] [place] [address], [place] [address] 14 Sep, 2011 [facility] [address] [id number] [address] [place] [address], [place] [address] 13 Sep, 2011 [facility] [address] [id number] [address] [place] [address], [place] [address] 12 Sep, 2011 [facility] [address] [id number] [address] [place] [address], [place] [address] Sep, [facility] [address] [id number] [address] [place] [address], [place] [address] Sep, [facility] [address] [id number] [address] [place] [address], [place] [address] Aug, [facility] [address] [id number] [address] [place] [address], [place] [address] Aug, [facility] [address] [id number] [address] [place] [address], [place] [address] Aug, [facility] [address] [id number] [address] [place] [address], [place] [address] Aug, [facility] [address] [id number] [address] [place] [address], [place] [address] Aug, [facility] [address] [id number] [address] [place] [address], [place] [address] Aug, [facility] [address] [id number] [address] [place] [address], [place] [address] Aug, [facility] [address] [id number] [address] [place] [address], [place] [address] Aug, [facility] [address] [id number] [address] [place] [address], [place] [address] Aug, [facility] [address] [id number] [address] [place] [address], [place] [address] Aug, [facility] [address] [id number] [address] [place] [address], [place] [address] Aug, [facility] [address] [id number] [address] [place] [address], [place] [address] Aug, [facility] [address] [id number] [address] [place] [address], [place] [address] Jul, [facility] [address] [id number] [address] [place] [address], [place] [address] Jul, [facility] [address] [id number] [address] [place] [address] Jul, [facility] [place] [address] [id number] [address] [place] [address] Jul, [facility] [place] [address] [id number] [address] [place] [address] Jul, [facility] [place] [address] [id number] [address] [place] [address] Jul, [facility] [place] [address] [id number] [address] [place] [id number] Jul, [facility] [place] [address] [id number] [address] [place] [address] Jul, [facility] [place] [address] [id number] [address] [place] [address] Jul, [facility] [place] [address] [id number] [address] [place] [address] Jul, [facility] [place] [address] [id number] [address] [place] [id number] Nov, [facility] [place] [address] [id number] [address] [place] [id number] Aug, [facility] [place] [address] [id number] [address] [place] [phone] Aug, [facility] [place] [address] [id number] [address] [place] [id number] Aug, [facility] [place] [address] [id number] [address] [place] [id number] Aug, [facility] [place] [address] [id number] [address] [place] [phone] Jul, IMMUNIZATIONS No Known Immunizations SOCIAL HISTORY Never Assessed REASON FOR VISIT EMR-[facility] PLAN OF CARE VITAL SIGNS MEDICATIONS Unknown [...]
--- OUTSIDE RECORDS SUMMARY | 2020-04-04 02:32 | XMS REPORT ---
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 Active 41537410 Problem Generalized anxiety disorder 300.02 A ctive 57853994 Problem Obsessive-compulsive disorders 300.3 Active 232051216 Problem Catatonic schizophrenia, 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 382721031 Problem Disorganized schizophrenia, 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 51696132 Problem Paranoid schizophrenia F20.0 Active 69018554 Problem Borderline personality disorder F60.3 Active 34015882 Problem Paranoid schizophrenia, unspecified condition 295.30 Active 78902025 Problem Schizoaffective disorder, depressive type F25.1 Active 17811928 Problem Bipolar disorder, unspecified 296.80 Active 13156134 Problem Schizoaffective disorder, unspecified F25.9 Active 56307069 Problem Attention deficit hyperactivity disorder (ADHD), inattentive type, 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 48986178 Problem Posttraumatic stress disorder F43.10 Active 44077987 Problem High risk medication use Z79.899 Activ e [id number] ALLERGIES No Information ENCOUNTERS Encounter Location Date Diagnosis [facility] [address] [facility] [id number] [address] [place] [phone] Jan, [facility] [address] [facility] [id number] [address] [place] [phone] Dec, Paranoid schizophrenia F20.0 ; Posttraumatic stress disorder F43.10 ; Attention deficit hyperactivity disorder (ADHD), inattentive type, 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 and Borderline personality disorder F60.3 [facility] [address] [facility] [id number] [address] [place] [phone] Dec, Paranoid schizophrenia F20.0 ; Posttraumatic stress disorder F43.10 ; Attention deficit hyperactivity disorder (ADHD), inattentive type, 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 and Borderline personality disorder F60.3 [facility] [address] [place] [id number] [address] [place] [phone] Oct, Paranoid schizophrenia F20.0 ; Posttraumatic stress disorder F43.10 ; Attention deficit hyperactivity disorder (ADHD), inattentive type, 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 and Borderline personality disorder F60.3 [facility] [address] [place] [id number] [address] [place] [phone] Oct, Paranoid schizophrenia F20.0 ; Posttraumatic stress disorder F43.10 ; Attention deficit hyperactivity disorder (ADHD), inattentive type, 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 and Borderline personality disorder F60.3 [facility] [address] [place] [id number] [address] [place] [phone] Aug, [facility] [address] [place] [id number] [place] [address] Aug, Paranoid schizophrenia F20.0 ; Posttraumatic stress disorder F43.10 ; Attention deficit hyperactivity disorder (ADHD), inattentive type, 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 and Borderline personality disorder F60.3 [facility] [address] [facility] [id number] [address] [place] [phone] Jul, Dry skin dermatitis L85.3 [facility] [address] [facility] [id number] [address] [place] [phone] Jul, [facility] [address] [facility] [id number] [address] [place] [phone] Jul, Paranoid schizophrenia F20.0 [facility] [address] [facility] [id number] [address] [place] [phone] May, Paranoid schizophrenia F20.0 ; Posttraumatic stress disorder F43.10 ; Attention deficit hyperactivity disorder (ADHD), inattentive type, 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 and Borderline personality disorder F60.3 [facility] [address] [facility] [id number] [address] [place] [phone] May, [facility] [address] [id number] [address] [address] May, Paranoid schizophrenia F20.0 [facility] [address] [id number] [address] [place] [address], [place] [id number] May, Paranoid schizophrenia F20.0 ; Posttraumatic stress disorder F43.10 ; Attention deficit hyperactivity disorder (ADHD), inattentive type, 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 and Borderline personality disorder F60.3 [facility] [address] [id number] [facility] [address] Apr, [facility] [address] [id number] [address] [place] [address], [place] [id number] Apr, Paranoid schizophrenia F20.0 ; Posttraumatic stress disorder F43.10 ; Attention deficit hyperactivity disorder (ADHD), inattentive type, 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 and Borderline personality disorder F60.3 [facility] [address] [id number] [address] [place] [phone] Apr, [facility] [address] [id number] [address] [place] [phone] Apr, Schizoaffective disorder, de pressive type F25.1 and Borderline personality disorder F60.3 [facility] [address] [id number] [address] [place] [phone] Apr, Paranoid schizophrenia F20.0 ; Posttraumatic stress disorder F43.10 ; Attention deficit hyperactivity disorder (ADHD), inattentive type, 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 and Borderline personality disorder F60.3 [facility] [address] [id number] [address] [place] [phone] Apr, [facility] [address] [id number] [address] [place] [phone] Apr, Paranoid schizophrenia F20.0 ; Posttraumatic stress disorder F43.10 ; Attention deficit hyperactivity disorder (ADHD), inattentive type, 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 and Borderline personality disorder F60.3 [facility] [address] [id number] [address] [place] [phone] Apr, [facility] [address] [id number] [address] [place] [phone] Mar, Paranoid schizophrenia F20.0 [facility] [address] [id number] [address] [place] [phone] Mar, [facility] [address] [id number] [address] [place] [phone] Mar, Paranoid schizophrenia F20.0 ; Posttraumatic stress disorder F43.10 ; Attention deficit hyperactivity disorder (ADHD), inattentive type, 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 and Borderline personality disorder F60.3 [facility] [address] [id number] [address] [place] [phone] February, Paranoid schizophrenia F20.0 [facility] [address] [id number] [address] [place] [phone] February, Paranoid schizophrenia F20.0 ; Posttraumatic stress disorder F43.10 ; Attention deficit hyperactivity disorder (ADHD), inattentive type, 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 and Borderline personality disorder F60.3 [facility] [address] [id number] [address] [place] [phone] February, Paranoid schizophrenia F20.0 ; Posttraumatic stress disorder F43.10 ; Attention deficit hyperactivity disorder (ADHD), inattentive type, 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 and Borderline personality disorder F60.3 [facility] [address] [id number] [address] [place] [phone] February, [facility] [address] [id number] [address] [place] [phone] February, Paranoid schizophrenia F20.0 [facility] [address] [id number] [address] [place] [phone] February, Paranoid schizophrenia F20.0 [facility] [address] [id number] [address] [place] [phone] February, Paranoid schizophrenia F20.0 ; Posttraumatic stress disorder F43.10 ; Attention deficit hyperactivity disorder (ADHD), inattentive type, 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 and Borderline personality disorder F60.3 [facility] [address] [id number] [address] [place] [phone] Jan, Paranoid schizophrenia F20.0 ; Posttraumatic stress disorder F43.10 ; Attention deficit hyperactivity disorder (ADHD), inattentive type, 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 and Borderline personality disorder F60.3 [facility] [address] [id number] [address] [place] [phone] Jan, Paranoid schizophrenia F20.0 [facility] [address] [id number] [address] [place] [phone] Jan, Paranoid schizophrenia F20.0 [facility] [address] [facility] [id number] [address] [place] [phone] Jan, Paranoid schizophrenia F20.0 ; Posttraumatic stress disorder F43.10 ; Attention deficit hyperactivity disorder (ADHD), inattentive type, 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 and Borderline personality disorder F60.3 [facility] [address] [id number] [address] [place] [phone] Dec, [facility] [address] [id number] [address] [place] [phone] Nov, Paranoid schizophrenia F20.0 ; Posttraumatic stress disorder F43.10 ; Attention deficit hyperactivity disorder (ADHD), inattentive type, 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 and Borderline personality disorder F60.3 [facility] [address] [id number] [address] [place] [phone] Nov, [facility] [address] [id number] [address] [place] [phone] Oct, Paranoid schizophrenia F20.0 [facility] [address] [facility] [id number] [address] [place] [id number] Oct, Paranoid schizophrenia F20.0 ; Posttraumatic stress disorder F43.10 ; Attention deficit hyperactivity disorder (ADHD), inattentive type, 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 ; Borderline personality disorder F60.3 and Other nursing home (current) drug therapy Z79.899 [facility] [address] [id number] [address] [place] [phone] Oct, [facility] [address] [facility] [id number] [address] [place] [phone] Oct, [facility] [address] [id number] [address] [place] [phone] Sep, [facility] [address] [id number] [address] [place] [phone] Sep, Paranoid schizophrenia F20.0 ; Posttraumatic stress disorder F43.10 ; Attention deficit hyperactivity disorder (ADHD), inattentive type, 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 and Borderline personality disorder F60.3 [facility] [address] [facility] [id number] [address] [place] [phone] Sep, Paranoid schizophrenia F20.0 [facility] [address] [id number] [address] [place] [phone] Aug, Paranoid schizophrenia F20.0 ; Posttraumatic stress disorder F43.10 ; Attention deficit hyperactivity disorder (ADHD), inattentive type, 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 and Borderline personality disorder F60.3 [facility] [address] [facility] [id number] [address] [place] [phone] Aug, Paranoid schizophrenia F20.0 ; Posttraumatic stress disorder F43.10 ; Attention deficit hyperactivity disorder (ADHD), inattentive type, 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 and Borderline personality disorder F60.3 [facility] [address] [id number] [address] [place] [phone] Aug, [facility] [address] [facility] [id number] [address] [place] [phone] Jul, Paranoid schizophrenia F20.0 ; Posttraumatic stress disorder F43.10 ; Attention deficit hyperactivity disorder (ADHD), inattentive type, 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 and Borderline personality disorder F60.3 [facility] [address] [id number] [address] [place] [phone] Jul, Paranoid schizophrenia F20.0 [facility] [address] [id number] [address] [place] [phone] Jul, Paranoid schizophrenia F20.0 ; Posttraumatic stress disorder F43.10 ; Attention deficit hyperactivity disorder (ADHD), inattentive type, 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 and Borderline personality disorder F60.3 [facility] [address] [id number] [address] [place] [phone] Jun, Paranoid schizophrenia F20.0 ; Posttraumatic stress disorder F43.10 ; Attention deficit hyperactivity disorder (ADHD), inattentive type, 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 and Borderline personality disorder F60.3 [facility] [address] [id number] [address] [place] [phone] May, Other nursing home (current) dr ug therapy Z79.899 [facility] [address] [id number] [address] [place] [phone] May, [facility] [address] [id number] [address] [place] [phone] May, [facility] [address] [facility] [id number] [address] [place] [phone] May, Attention deficit hyperactiv ity disorder (ADHD), inattentive type, mild F90.0 [facility] [address] [facility] [id number] [address] [place] [phone] May, [facility] [address] [id number] [address] [place] [phone] May, Attention deficit hyperactiv ity disorder (ADHD), inattentive type, mild F90.0 [facility] [address] [id number] [address] [place] [phone] May, Paranoid schizophrenia F20.0 ; Posttraumatic stress disorder F43.10 ; Attention deficit hyperactivity disorder (ADHD), inattentive type, 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 and Other nursing home (current) drug therapy Z79.899 [facility] [address] [id number] [address] [place] [phone] Apr, Paranoid schizophrenia F20.0 [facility] [address] [id number] [address] [place] [phone] Apr, Paranoid schizophrenia F20.0 ; Posttraumatic stress disorder F43.10 and Attention deficit hyperactivity disorder (ADHD), inattentive type, 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 [facility] [address] [id number] [address] [place] [phone] February, [facility] [address] [id number] [address] [place] [address] February, Paranoid schizophrenia F20.0 ; Posttraumatic stress disorder F43.10 and Attention deficit hyperactivity disorder (ADHD), inattentive type, 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 [facility] [address] [id number] [address] [place] [phone] February, Paranoid schizophrenia F20.0 ; Posttraumatic stress disorder F43.10 and Attention deficit hyperactivity disorder (ADHD), inattentive type, 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 [facility] [address] [id number] [address] [place] [phone] Jan, Paranoid schizophrenia F20.0 ; Posttraumatic stress disorder F43.10 and Attention deficit hyperactivity disorder (ADHD), inattentive type, 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 [facility] [address] [id number] [address] [place] [id number] Dec, Dental examination Z01.20 [facility] [address] [id number] [address] [place] [address] [id number] Nov, Dental examination Z01.20 [facility] [address] [id number] [address] [place] [address] [id number] Nov, Dental examination Z01.20 [facility] [address] [id number] [address] [place] [address] [id number] Nov, Dental caries K02.9 [facility] [address] [id number] [address] [place] [phone] Nov, High risk medication use Z79 .899 [facility] [address] [id number] [address] [place] [phone] Nov, Paranoid schizophrenia F20.0 ; Posttraumatic stress disorder F43.10 ; Attention deficit hyperactivity disorder (ADHD), inattentive type, 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 and Borderline personality disorder in adult F60.3 [facility] [address] [id number] [address] [place] [id number] Oct, Dental caries K02.9 [facility] [address] [id number] [address] [place] [phone] Sep, Paranoid schizophrenia F20.0 ; Posttraumatic stress disorder F43.10 and Attention deficit hyperactivity disorder (ADHD), inattentive type, 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 [facility] [address] [id number] [address] [place] [phone] Aug, Paranoid schizophrenia F20.0 ; Posttraumatic stress disorder F43.10 and Attention deficit hyperactivity disorder (ADHD), inattentive type, 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 [facility] [address] [id number] [address] [place] [phone] Aug, Strep throat J02.0 and Cough R05 [facility] [address] [id number] [address] [place] [phone] Aug, [facility] [address] [id number] [address] [place] [phone] 24 Jul, 2016 Paranoid schizophrenia F20.0 ; Posttraumatic stress disorder F43.10 and Attention deficit hyperactivity disorder (ADHD), inattentive type, 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 [facility] [address] [id number] [address] [place] [phone] Jul, [facility] [address] [id number] [address] [place] [phone] Jun, Paranoid schizophrenia F20.0 ; Posttraumatic stress disorder F43.10 and Attention deficit hyperactivity disorder (ADHD), inattentive type, 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 [facility] [address] [id number] [address] [place] [address] [id number] Jun, Dental examination Z01.20 [facility] [address] [id number] [address] [place] [phone] Jun, [facility] [address] [id number] [address] [place] [phone] May, Paranoid schizophrenia F20.0 [facility] [address] [id number] [address] [place] [phone] May, Paranoid schizophrenia F20.0 ; Posttraumatic stress disorder F43.10 and Attention deficit hyperactivity disorder (ADHD), inattentive type, 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 [facility] [address] [id number] [address] [place] [phone] May, [facility] [address] [id number] [address] [place] [phone] May, Paranoid schizophrenia F20.0 [facility] [address] [id number] [address] [place] [phone] May, [facility] [address] [id number] [address] [place] [address] May, Paranoid schizophrenia F20.0 [facility] [address] [id number] [address] [place] [phone] May, Schizoaffective disorder, un specified F25.9 [facility] [address] [id number] [address] [place] [phone] May, Schizoaffective disorder, un specified F25.9 [facility] [address] [id number] [address] [place] [phone] May, [facility] [address] [id number] [address] [place] [phone] May, Paranoid schizophrenia F20.0 [facility] [address] [id number] [address] [place] [phone] May, Paranoid schizophrenia F20.0 ; Posttraumatic stress disorder F43.10 and Attention deficit hyperactivity disorder (ADHD), inattentive type, 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 [facility] [address] [id number] [address] [place] [address], [place] [id number] Mar, [facility] [address] [id number] [facility] [phone] Mar, Paranoid schizophrenia F20.0 ; Posttraumatic stress disorder F43.10 and Attention deficit hyperactivity disorder (ADHD), inattentive type, 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 [facility] [address] [id number] [address] [place] [address], [place] [id number] Mar, Paranoid schizophrenia F20.0 [facility] [address] [id number] [address] [place] [address], [place] [id number] Mar, Paranoid schizophrenia F20.0 ; Attention deficit hyperactivity disorder (ADHD), inattentive type, 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 and Posttraumatic stress disorder F43.10 [facility] [address] [id number] [address] [place] [phone] Mar, [facility] [address] [id number] [address] [place] [address], [place] [id number] Mar, Paranoid schizophrenia F20.0 ; Posttraumatic stress disorder F43.10 and Attention deficit hyperactivity disorder (ADHD), inattentive type, 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 [facility] [address] [id number] [address] [place] [address], [place] [id number] February, [facility] [address] [id number] [address] [place] [phone] February, [facility] [address] [id number] [address] [place] [address], [place] [id number] February, [facility] [address] [id number] [address] [place] [phone] February, [facility] [address] [id number] [address] [place] [address], [place] [id number] Jan, Paranoid schizophrenia F20.0 [facility] [address] [id number] [address] [place] [address] [id number] Jan, Dental examination Z01.20 [facility] [address] [id number] [address] [place] [address] [id number] Jan, Dental caries K02.9 [facility] [address] [id number] [address] [place] [address] [id number] Jan, Dental examination Z01.20 [facility] [address] [id number] [address] [place] [address] [id number] Dec, Encounter for dental examina tion Z01.20 [facility] [address] [id number] [address] [place] [phone] Dec, Paranoid schizophrenia F20.0 [facility] [address] [id number] [address] [place] [address] [phone] Dec, Dental examination Z01.20 [facility] [address] [id number] [address] [place] [id number] Dec, [facility] [address] [id number] [address] [place] [phone] Dec, Paranoid schizophrenia F20.0 ; Posttraumatic stress disorder F43.10 and Attention deficit hyperactivity disorder (ADHD), inattentive type, 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 [facility] [address] [id number] [address] [place] [phone] Nov, Schizoaffective disorder, un specified F25.9 [facility] [address] [id number] [address] [place] [phone] Oct, Paranoid schizophrenia F20.0 [facility] [address] [id number] [address] [place] [id number] Oct, [facility] [address] [id number] [address] [place] [phone] Sep, Paranoid schizophrenia F20.0 ; Posttraumatic stress disorder F43.10 and Attention deficit hyperactivity disorder (ADHD), inattentive type, 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 [facility] [address] [id number] [address] [place] [phone] Sep, [facility] [address] [facility] [id number] [address] [place], [place] [id number] Sep, Paranoid schizophrenia F20.0 ; Posttraumatic stress disorder F43.10 and Attention deficit hyperactivity disorder (ADHD), inattentive type, 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 [facility] [address] [facility] [id number] [address] [place] [id number] Aug, Paranoid schizophrenia F20.0 [facility] [address] [facility] [id number] [address] [place] [id number] Aug, [facility] [address] [facility] [id number] [address] [place] [id number] Aug, Posttraumatic stress disorde r F43.10 ; Paranoid schizophrenia F20.0 and Attention deficit hyperactivity disorder (ADHD), inattentive type, 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 [facility] [address] [facility] [id number] [address] [place] [id number] Jul, Bipolar disorder, unspecifie d F31.9 [facility] [address] [facility] [id number] [address] [place] [phone] Jul, [facility] [address] [facility] [id number] [address] [place] [phone] Jun, [facility] [address] [facility] [id number] [address] [place] [phone] Jun, Schizoaffective disorder, ch ronic 295.72 ; Posttraumatic stress disorder 309.81 and Attention deficit disorder of childhood without mention of hyperactivity 314.00 [facility] [address] [facility] [id number] [address] [place] [id number] May, [facility] [address] [facility] [id number] [address] [place] [id number] May, [facility] [address] [facility] [id number] [address] [place] [phone] May, Schizoaffective disorder, ch ronic 295.72 ; Posttraumatic stress disorder 309.81 ; Attention deficit disorder of childhood without mention of hyperactivity 314.00 and Bipolar disorder, unspecified 296.80 [facility] [address] [facility] [id number] [address] [place] [id number] Apr, Schizoaffective disorder, ch ronic 295.72 [facility] [address] [facility] [id number] [address] [place] [phone] Apr, [facility] [address] [id number] [address] [place] [id number] Apr, Schizoaffective disorder, ch ronic 295.72 ; Posttraumatic stress disorder 309.81 and Attention deficit disorder of childhood without mention of hyperactivity 314.00 [facility] [address] [facility] [id number] [address] [place] [phone] Mar, Disorganized schizophrenia, 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 [facility] [address] [facility] [id number] [address] [place] [phone] Mar, [facility] [address] [facility] [id number] [address] [place] [phone] Mar, [facility] [address] [facility] [id number] [address] [place] [phone] Mar, [facility] [address] [facility] [id number] [address] [place] [phone] Mar, [facility] [address] [facility] [id number] [address] [place] [phone] February, Schizoaffective disorder, ch ronic 295.72 [facility] [address] [facility] [id number] [address] [place] [phone] February, [facility] [address] [facility] [id number] [address] [place] [phone] February, Attention 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 ; Posttraumatic stress disorder 309.81 and Schizoaffective disorder, chronic 295.72 [facility] [address] [id number] [address] [place] [address], [place] [id number] 29 Jan, 2015 [facility] [address] [id number] [address] [place] [address], [place] [id number] 14 Jan, 2015 [facility] [address] [id number] [address] [place] [address], [place] [id number] Jan, [facility] [address] [id number] [address] [place] [address], [place] [id number] Dec, [facility] [address] [id number] [address] [place] [address], [place] [id number] Dec, [facility] [address] [id number] [address] [place] [address], [place] [id number] Dec, [facility] [address] [id number] [address] [place] [address], [place] [id number] Dec, [facility] [address] [id number] [address] [place] [address], [place] [id number] Dec, [facility] [address] [id number] [address] [place] [address], [place] [id number] Dec, [facility] [address] [id number] [address] [place] [address], [place] [id number] Dec, [facility] [address] [id number] [address] [place] [address], [place] [id number] Dec, [facility] [address] [id number] [address] [place] [address], [place] [id number] Nov, [facility] [address] [id number] [address] [place] [address], [place] [id number] Nov, [facility] [address] [id number] [address] [place] [address], [place] [id number] Nov, [facility] [address] [id number] [address] [place] [address], [place] [id number] Nov, [facility] [address] [id number] [address] [place] [address], [place] [id number] Nov, [facility] [address] [id number] [address] [place] [address], [place] [id number] Nov, [facility] [address] [id number] [address] [place] [address], [place] [id number] Nov, [facility] [address] [id number] [address] [place] [address], [place] [id number] Nov, [facility] [address] [id number] [address] [place] [address], [place] [id number] Nov, [facility] [address] [id number] [address] [place] [address], [place] [id number] Nov, [facility] [address] [id number] [address] [place] [address], [place] [id number] Oct, [facility] [address] [id number] [address] [place] [address], [place] [id number] Oct, [facility] [address] [id number] [address] [place] [address], [place] [id number] Oct, [facility] [address] [id number] [address] [place] [address], [place] [id number] Oct, [facility] [address] [id number] [address] [place] [address], [place] [id number] Oct, [facility] [address] [id number] [address] [place] [address], [place] [id number] Oct, [facility] [address] [id number] [address] [place] [address], [place] [id number] Oct, [facility] [address] [id number] [address] [place] [address], [place] [id number] Sep, [facility] [address] [id number] [address] [place] [address], [place] [id number] Sep, [facility] [address] [id number] [address] [place] [address], [place] [id number] Sep, [facility] [address] [id number] [address] [place] [address], [place] [id number] 15 Sep, 2014 [facility] [address] [id number] [address] [place] [address], [place] [id number] Aug, [facility] [address] [id number] [address] [place] [address], [place] [id number] Aug, [facility] [address] [id number] [address] [place] [address], [place] [id number] Aug, [facility] [address] [id number] [address] [place] [address], [place] [id number] Aug, [facility] [address] [id number] [address] [place] [address], [place] [id number] Aug, [facility] [address] [id number] [address] [place] [address], [place] [id number] Aug, [facility] [address] [id number] [address] [place] [address], [place] [id number] Jul, [facility] [address] [id number] [address] [place] [address], [place] [id number] 29 Jul, 2014 [facility] [address] [id number] [address] [place] [address], [place] [id number] 24 Jul, 2014 [facility] [address] [id number] [address] [place] [address], [place] [id number] 24 Jul, 2014 [facility] [address] [id number] [address] [place] [address], [place] [id number] 15 Jul, 2014 [facility] [address] [id number] [address] [place] [address], [place] [id number] 15 Jul, 2014 [facility] [address] [id number] [address] [place] [address], [place] [id number] 27 Jun, 2014 [facility] [address] [id number] [address] [place] [address], [place] [id number] 27 Jun, 2014 [facility] [address] [id number] [address] [place] [address], [place] [id number] Jun, 2013 [facility] [address] [id number] [facility] [id number] 26 Jun, 2013 [facility] [address] [id number] [facility] [id number] Jun, 2013 [facility] [address] [id number] [address] [place] [address], [place] [id number] Jun, 2013 [facility] [address] [id number] [address] [place] [address], [place] [id number] 16 Jun, 2013 [facility] [address] [id number] [address] [place] [address], [place] [id number] 16 Jun, 2013 [facility] [address] [id number] [address] [place] [address], [place] [id number] Jun, 2013 [facility] [address] [id number] [address] [place] [address], [place] [id number] Jun, 2013 [facility] [address] [id number] [address] [place] [address], [place] [id number] Jun, [facility] [address] [id number] [address] [place] [address], [place] [id number] May, [facility] [address] [id number] [address] [place] [address], [place] [id number] May, [facility] [address] [id number] [address] [place] [address], [place] [id number] May, [facility] [address] [id number] [address] [place] [address], [place] [id number] May, [facility] [address] [id number] [address] [place] [address], [place] [id number] May, [facility] [address] [id number] [address] [place] [address], [place] [id number] May, [facility] [address] [id number] [address] [place] [address], [place] [id number] May, [facility] [address] [id number] [address] [place] [address], [place] [id number] May, [facility] [address] [id number] [address] [place] [address], [place] [id number] May, [facility] [address] [id number] [address] [place] [address], [place] [id number] May, [facility] [address] [id number] [address] [place] [address], [place] [id number] Apr, [facility] [address] [id number] [address] [place] [address], [place] [id number] Apr, [facility] [address] [id number] [address] [place] [address], [place] [id number] Apr, [facility] [address] [id number] [address] [place] [address], [place] [id number] Apr, [facility] [address] [id number] [address] [place] [address], [place] [id number] Apr, [facility] [address] [id number] [address] [place] [address], [place] [id number] Apr, [facility] [address] [id number] [address] [place] [address], [place] [id number] Apr, [facility] [address] [id number] [address] [place] [address], [place] [id number] Apr, [facility] [address] [id number] [address] [place] [address], [place] [id number] Apr, [facility] [address] [id number] [address] [place] [address], [place] [id number] Apr, [facility] [address] [id number] [address] [place] [address], [place] [id number] Mar, [facility] [address] [id number] [address] [place] [address], [place] [id number] Mar, [facility] [address] [id number] [address] [place] [address], [place] [id number] Mar, [facility] [address] [id number] [address] [place] [address], [place] [id number] Mar, [facility] [address] [id number] [address] [place] [address], [place] [id number] Mar, [facility] [address] [id number] [address] [place] [address], [place] [id number] Mar, [facility] [address] [id number] [address] [place] [address], [place] [id number] Mar, [facility] [address] [id number] [address] [place] [address], [place] [id number] Mar, [facility] [address] [id number] [address] [place] [address], [place] [id number] Mar, [facility] [address] [id number] [address] [place] [address], [place] [id number] Mar, [facility] [address] [id number] [address] [place] [address], [place] [id number] Mar, [facility] [address] [id number] [address] [place] [address], [place] [id number] Mar, [facility] [address] [id number] [address] [place] [address], [place] [id number] Mar, [facility] [address] [id number] [address] [place] [address], [place] [id number] Mar, [facility] [address] [id number] [address] [place] [address], [place] [id number] Mar, [facility] [address] [id number] [address] [place] [address], [place] [id number] Mar, [facility] [address] [id number] [address] [place] [address], [place] [id number] Mar, [facility] [address] [id number] [address] [place] [address], [place] [id number] 09 Mar, 2014 [facility] [address] [id number] [address] [place] [address], [place] [id number] Mar, [facility] [address] [id number] [facility] [address] Mar, [facility] [address] [id number] [address] [place] [address], [place] [id number] February, [facility] [address] [id number] [address] [place] [address], [place] [id number] February, [facility] [address] [id number] [address] [place] [address], [place] [id number] February, [facility] [address] [id number] [address] [place] [address], [place] [id number] February, [facility] [address] [id number] [address] [place] [address], [place] [id number] February, [facility] [address] [id number] [address] [place] [address], [place] [id number] February, [facility] [address] [id number] [address] [place] [address], [place] [id number] February, [facility] [address] [id number] [address] [place] [address], [place] [id number] February, [facility] [address] [id number] [address] [place] [address], [place] [id number] February, [facility] [address] [id number] [address] [place] [address], [place] [id number] February, [facility] [address] [id number] [address] [place] [address], [place] [id number] February, [facility] [address] [id number] [address] [place] [address], [place] [id number] February, [facility] [address] [id number] [address] [place] [address], [place] [id number] February, [facility] [address] [id number] [address] [place] [address], [place] [id number] February, [facility] [address] [id number] [address] [place] [address], [place] [id number] February, [facility] [address] [id number] [address] [place] [address], [place] [id number] February, [facility] [address] [id number] [address] [place] [address], [place] [id number] February, [facility] [address] [id number] [address] [place] [address], [place] [id number] February, [facility] [address] [id number] [address] [place] [address], [place] [id number] February, [facility] [address] [id number] [address] [place] [address], [place] [id number] February, [facility] [address] [id number] [address] [place] [address], [place] [id number] February, [facility] [address] [id number] [address] [place] [address], [place] [id number] Jan, [facility] [address] [id number] [address] [place] [address], [place] [id number] Jan, [facility] [address] [id number] [address] [place] [address], [place] [id number] Jan, [facility] [address] [id number] [address] [place] [address], [place] [id number] Jan, [facility] [address] [id number] [address] [place] [address], [place] [id number] Jan, [facility] [address] [id number] [address] [place] [address], [place] [id number] Jan, [facility] [address] [id number] [address] [place] [address], [place] [id number] Jan, [facility] [address] [id number] [address] [place] [address], [place] [id number] Jan, [facility] [address] [id number] [address] [place] [address], [place] [id number] Dec, [facility] [address] [id number] [facility] [id number] 20 Dec, 2013 [facility] [address] [id number] [facility] [id number] 20 Dec, 2013 [facility] [address] [id number] [facility] [id number] 19 Dec, 2013 [facility] [address] [id number] [address] [place] [address], [place] [id number] 19 Dec, 2013 [facility] [address] [id number] [address] [place] [address], [place] [id number] 15 Dec, 2013 [facility] [address] [id number] [address] [place] [address], [place] [id number] 15 Dec, 2013 [facility] [address] [id number] [address] [place] [address], [place] [id number] 11 Dec, 2013 [facility] [address] [id number] [address] [place] [address], [place] [id number] 10 Dec, 2013 [facility] [address] [id number] [address] [place] [address], [place] [id number] 10 Dec, 2013 [facility] [address] [id number] [address] [place] [address], [place] [id number] 18 Nov, 2013 [facility] [place] [facility] [address] [id number] [address] [place] [address], [place] [id number] 17 Nov, 2013 [facility] [place] [facility] [address] [id number] [address] [place] [address], [place] [id number] Nov, [facility] [place] [facility] [address] [id number] [address] [place] [address], [place] [id number] 05 Nov, 2013 [facility] [place] [facility] [address] [id number] [address] [place] [address], [place] [id number] 05 Nov, 2013 [facility] [place] [facility] [address] [id number] [address] [place] [address], [place] [id number] Oct, [facility] [place] [facility] [address] [id number] [address] [place] [id number] Oct, [facility] [address] [id number] [address] [place] [address], [place] [id number] Oct, [facility] [address] [id number] [address] [place] [address], [place] [id number] Sep, [facility] [address] [id number] [address] [place] [address], [place] [id number] Sep, [facility] [address] [id number] [address] [place] [address], [place] [id number] Sep, [facility] [address] [id number] [address] [place] [address], [place] [id number] Sep, [facility] [address] [id number] [address] [place] [address], [place] [id number] Aug, [facility] [address] [id number] [address] [place] [address], [place] [id number] Aug, [facility] [address] [id number] [address] [place] [address], [place] [id number] Jul, [facility] [address] [id number] [address] [place] [address], [place] [id number] Jul, [facility] [address] [id number] [address] [place] [address], [place] [id number] Jul, [facility] [address] [id number] [address] [place] [address], [place] [id number] Jul, [facility] [address] [id number] [address] [place] [address], [place] [id number] Jul, [facility] [address] [id number] [address] [place] [address], [place] [id number] Jun, [facility] [address] [id number] [address] [place] [address], [place] [id number] Jun, [facility] [address] [id number] [address] [place] [address], [place] [id number] 19 Jun, 2013 [facility] [place] [facility] [address] [id number] [address] [place] [address], [place] [id number] 18 Jun, 2013 [facility] [address] [id number] [address] [place] [address], [place] [id number] 16 Jun, 2013 [facility] [address] [id number] [address] [place] [address], [place] [id number] 12 Jun, 2013 [facility] [address] [id number] [address] [place] [address], [place] [id number] 11 Jun, 2013 [facility] [address] [id number] [address] [place] [address], [place] [id number] 30 May, 2013 [facility] [address] [id number] [address] [place] [address], [place] [id number] May, [facility] [address] [id number] [address] [place] [address], [place] [id number] Apr, [facility] [address] [id number] [address] [place] [address], [place] [id number] Apr, [facility] [address] [id number] [address] [place] [address], [place] [id number] Apr, [facility] [address] [id number] [address] [place] [address], [place] [id number] Mar, [facility] [address] [id number] [address] [place] [address], [place] [id number] Mar, [facility] [address] [id number] [address] [place] [address], [place] [id number] February, [facility] [address] [id number] [address] [place] [address], [place] [id number] February, [facility] [address] [id number] [address] [place] [address], [place] [id number] February, [facility] [address] [id number] [address] [place] [address], [place] [id number] February, [facility] [address] [id number] [address] [place] [address], [place] [id number] 19 Jan, 2013 [facility] [address] [id number] [address] [place] [address], [place] [id number] 17 Jan, 2013 [facility] [address] [id number] [address] [place] [address], [place] [id number] 16 Jan, 2013 [facility] [address] [id number] [address] [place] [address], [place] [id number] 29 Dec, 2012 [facility] [address] [id number] [address] [place] [address], [place] [id number] Dec, [facility] [address] [id number] [address] [place] [address], [place] [id number] Dec, [facility] [address] [id number] [address] [place] [address], [place] [id number] 08 Dec, 2012 [facility] [address] [id number] [address] [place] [address], [place] [id number] Nov, [facility] [address] [id number] [address] [place] [address], [place] [id number] Nov, [facility] [address] [id number] [address] [place] [address], [place] [id number] Oct, [facility] [address] [id number] [address] [place] [address], [place] [id number] Oct, [facility] [address] [id number] [address] [place] [address], [place] [id number] Oct, [facility] [address] [id number] [address] [place] [address], [place] [id number] Oct, [facility] [address] [id number] [address] [place] [address], [place] [id number] Aug, [facility] [address] [id number] [address] [place] [address], [place] [id number] Aug, [facility] [address] [id number] [address] [place] [address], [place] [id number] 18 Jun, 2012 [facility] [address] [id number] [facility] [id number] May, [facility] [address] [id number] [address] [place] [address], [place] [id number] May, [facility] [address] [id number] [address] [place] [address], [place] [id number] Apr, [facility] [address] [id number] [address] [place] [address], [place] [id number] Apr, [facility] [address] [id number] [address] [place] [address], [place] [phone] Apr, [facility] [address] [id number] [address] [place] [address], [place] [id number] Mar, [facility] [address] [id number] [address] [place] [address], [place] [id number] Mar, [facility] [address] [id number] [address] [place] [address], [place] [id number] Mar, [facility] [address] [id number] [address] [place] [address], [place] [id number] Mar, [facility] [address] [id number] [address] [place] [address], [place] [id number] Mar, [facility] [address] [id number] [address] [place] [address], [place] [id number] February, [facility] [address] [id number] [address] [place] [address], [place] [id number] February, [facility] [address] [id number] [address] [place] [address], [place] [id number] February, [facility] [address] [id number] [address] [place] [address], [place] [id number] February, [facility] [address] [id number] [address] [place] [address], [place] [id number] February, [facility] [address] [id number] [address] [place] [address], [place] [id number] February, [facility] [address] [id number] [address] [place] [address], [place] [id number] February, [facility] [address] [id number] [address] [place] [address], [place] [id number] Jan, [facility] [address] [id number] [address] [place] [address], [place] [id number] Jan, [facility] [address] [id number] [address] [place] [address], [place] [id number] 17 Jan, 2012 [facility] [address] [id number] [address] [place] [address], [place] [id number] Jan, [facility] [address] [id number] [address] [place] [address], [place] [id number] Jan, [facility] [address] [id number] [address] [place] [address], [place] [id number] Jan, [facility] [address] [id number] [address] [place] [address], [place] [id number] 30 Dec, 2011 [facility] [address] [id number] [address] [place] [address], [place] [id number] 24 Dec, 2011 [facility] [address] [id number] [address] [place] [address], [place] [id number] Dec, [facility] [address] [id number] [address] [place] [address], [place] [id number] Dec, [facility] [address] [id number] [address] [place] [address], [place] [id number] Dec, [facility] [address] [id number] [address] [place] [address], [place] [id number] Nov, [facility] [address] [id number] [address] [place] [address], [place] [id number] Nov, [facility] [address] [id number] [address] [place] [address], [place] [id number] Nov, [facility] [address] [id number] [address] [place] [address], [place] [id number] 14 Nov, 2011 [facility] [address] [id number] [address] [place] [address], [place] [id number] 10 Nov, 2011 [facility] [address] [id number] [address] [place] [address], [place] [id number] Nov, [facility] [address] [id number] [address] [place] [address], [place] [id number] Oct, [facility] [address] [id number] [address] [place] [address], [place] [id number] Oct, [facility] [address] [id number] [address] [place] [address], [place] [id number] Oct, [facility] [address] [id number] [address] [place] [address], [place] [id number] Oct, [facility] [address] [id number] [address] [place] [address], [place] [id number] Oct, [facility] [address] [id number] [address] [place] [address], [place] [id number] Sep, [facility] [address] [id number] [address] [place] [address], [place] [id number] Sep, [facility] [address] [id number] [address] [place] [address], [place] [id number] Sep, [facility] [address] [id number] [address] [place] [address], [place] [id number] 14 Sep, 2011 [facility] [address] [id number] [address] [place] [address], [place] [id number] 14 Sep, 2011 [facility] [address] [id number] [address] [place] [address], [place] [id number] 13 Sep, 2011 [facility] [address] [id number] [address] [place] [address], [place] [id number] 12 Sep, 2011 [facility] [address] [id number] [address] [place] [address], [place] [id number] Sep, [facility] [address] [id number] [address] [place] [address], [place] [id number] Sep, [facility] [address] [id number] [address] [place] [address], [place] [id number] Aug, [facility] [address] [id number] [address] [place] [address], [place] [id number] Aug, [facility] [address] [id number] [address] [place] [address], [place] [id number] Aug, [facility] [address] [id number] [address] [place] [address], [place] [id number] Aug, [facility] [address] [id number] [address] [place] [address], [place] [id number] Aug, [facility] [address] [id number] [address] [place] [address], [place] [id number] Aug, [facility] [address] [id number] [address] [place] [address], [place] [id number] Aug, [facility] [address] [id number] [address] [place] [address], [place] [id number] Aug, [facility] [address] [id number] [address] [place] [address], [place] [id number] Aug, [facility] [address] [id number] [address] [place] [address], [place] [id number] Aug, [facility] [address] [id number] [address] [place] [address], [place] [id number] Aug, [facility] [address] [id number] [address] [place] [address], [place] [id number] Aug, [facility] [address] [id number] [address] [place] [address], [place] [id number] Jul, [facility] [address] [id number] [address] [place] [address], [place] [id number] Jul, [facility] [address] [id number] [address] [place] [id number] Jul, [facility] [address] [id number] [address] [place] [phone] Jul, [facility] [address] [id number] [address] [place] [phone] Jul, [facility] [address] [id number] [address] [place] [id number] Jul, [facility] [address] [id number] [address] [place] [id number] Jul, [facility] [address] [id number] [address] [place] [id number] Jul, [facility] [address] [id number] [address] [place] [id number] Jul, [facility] [address] [id number] [address] [place] [phone] Jul, [facility] [address] [id number] [address] [place] [phone] Nov, [facility] [address] [id number] [address] [place] [id number] Aug, [facility] [address] [id number] [address] [place] [id number] Aug, [facility] [address] [id number] [address] [place] [phone] Aug, [facility] [address] [id number] [address] [place] [id number] Aug, [facility] [address] [id number] [address] [place] [phone] Jul, IMMUNIZATIONS No Known Immunizations SOCIAL HISTORY Never Assessed REASON FOR VISIT EMR-[facility] PLAN OF CARE VITAL SIGNS MEDICATIONS [...]
--- OUTSIDE RECORDS SUMMARY | 2020-04-04 02:32 | XMS REPORT ---
Author Author Kaila Onofre Doctor Organization 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 068063760 Problem Disorganized schizophrenia, 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 58921003 Problem Paranoid schizophrenia F20.0 Active 74531695 Problem Borderline personality disorder F60.3 Active 80291132 Problem Paranoid schizophrenia, unspecified condition 295.30 Active 42323974 Problem Schizoaffective disorder, depressive type F25.1 Active 77689434 Problem Bipolar disorder, unspecified 296.80 Active 48568043 Problem Schizoaffective disorder, unspecified F25.9 Active 47082213 Problem Attention deficit hyperactivity disorder (ADHD), inattentive type, 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 86242309 Problem Posttraumatic stress disorder F43.10 Active 74664847 Problem High risk medication use Z79.899 Activ e [id number] ALLERGIES No Information ENCOUNTERS Encounter Location Date Diagnosis [facility] [address] [facility] [id number] [address] [place] [phone] Jan, [facility] [address] [facility] [id number] [address] [place] [address] Dec, Paranoid schizophrenia F20.0 ; Posttraumatic stress disorder F43.10 ; Attention deficit hyperactivity disorder (ADHD), inattentive type, 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 and Borderline personality disorder F60.3 [facility] [address] [facility] [id number] [address] [place] [phone] Dec, Paranoid schizophrenia F20.0 ; Posttraumatic stress disorder F43.10 ; Attention deficit hyperactivity disorder (ADHD), inattentive type, 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 and Borderline personality disorder F60.3 [facility] [address] [place] [id number] [address] [place] [phone] Oct, Paranoid schizophrenia F20.0 ; Posttraumatic stress disorder F43.10 ; Attention deficit hyperactivity disorder (ADHD), inattentive type, 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 and Borderline personality disorder F60.3 [facility] [address] [place] [id number] [address] [place] [address] Oct, Paranoid schizophrenia F20.0 ; Posttraumatic stress disorder F43.10 ; Attention deficit hyperactivity disorder (ADHD), inattentive type, 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 and Borderline personality disorder F60.3 [facility] [address] [place] [id number] [address] [place] [phone] Aug, [facility] [address] [place] [id number] [place] [phone] Aug, Paranoid schizophrenia F20.0 ; Posttraumatic stress disorder F43.10 ; Attention deficit hyperactivity disorder (ADHD), inattentive type, 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 and Borderline personality disorder F60.3 [facility] [address] [facility] [id number] [address] [place] [phone] Jul, Dry skin dermatitis L85.3 [facility] [address] [facility] [id number] [address] [place] [address] Jul, [facility] [address] [facility] [id number] [address] [place] [phone] Jul, Paranoid schizophrenia F20.0 [facility] [address] [facility] [id number] [address] [place] [address] May, Paranoid schizophrenia F20.0 ; Posttraumatic stress disorder F43.10 ; Attention deficit hyperactivity disorder (ADHD), inattentive type, 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 and Borderline personality disorder F60.3 [facility] [address] [facility] [id number] [address] [place] [phone] May, [facility] [address] [id number] [address] [address] May, Paranoid schizophrenia F20.0 [facility] [address] [id number] [address] [place] [address], [place] [address] May, Paranoid schizophrenia F20.0 ; Posttraumatic stress disorder F43.10 ; Attention deficit hyperactivity disorder (ADHD), inattentive type, 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 and Borderline personality disorder F60.3 [facility] [address] [id number] [facility] [place] [address] Apr, [facility] [address] [id number] [address] [place] [address], [place] [address] Apr, Paranoid schizophrenia F20.0 ; Posttraumatic stress disorder F43.10 ; Attention deficit hyperactivity disorder (ADHD), inattentive type, 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 and Borderline personality disorder F60.3 [facility] [address] [id number] [address] [place] [address] Apr, [facility] [address] [id number] [address] [place] [phone] Apr, Schizoaffective disorder, de pressive type F25.1 and Borderline personality disorder F60.3 [facility] [address] [id number] [address] [place] [phone] Apr, Paranoid schizophrenia F20.0 ; Posttraumatic stress disorder F43.10 ; Attention deficit hyperactivity disorder (ADHD), inattentive type, 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 and Borderline personality disorder F60.3 [facility] [address] [id number] [address] [place] [phone] Apr, [facility] [address] [id number] [address] [place] [address] Apr, Paranoid schizophrenia F20.0 ; Posttraumatic stress disorder F43.10 ; Attention deficit hyperactivity disorder (ADHD), inattentive type, 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 and Borderline personality disorder F60.3 [facility] [address] [id number] [address] [place] [phone] Apr, [facility] [address] [id number] [address] [place] [address] Mar, Paranoid schizophrenia F20.0 [facility] [address] [id number] [address] [place] [address] Mar, [facility] [address] [id number] [address] [place] [phone] Mar, Paranoid schizophrenia F20.0 ; Posttraumatic stress disorder F43.10 ; Attention deficit hyperactivity disorder (ADHD), inattentive type, 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 and Borderline personality disorder F60.3 [facility] [address] [id number] [address] [place] [address] February, Paranoid schizophrenia F20.0 [facility] [address] [id number] [address] [place] [address] February, Paranoid schizophrenia F20.0 ; Posttraumatic stress disorder F43.10 ; Attention deficit hyperactivity disorder (ADHD), inattentive type, 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 and Borderline personality disorder F60.3 [facility] [address] [id number] [address] [place] [address] February, Paranoid schizophrenia F20.0 ; Posttraumatic stress disorder F43.10 ; Attention deficit hyperactivity disorder (ADHD), inattentive type, 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 and Borderline personality disorder F60.3 [facility] [address] [id number] [address] [place] [address] February, [facility] [address] [id number] [address] [place] [phone] February, Paranoid schizophrenia F20.0 [facility] [address] [id number] [address] [place] [phone] February, Paranoid schizophrenia F20.0 [facility] [address] [id number] [address] [place] [phone] February, Paranoid schizophrenia F20.0 ; Posttraumatic stress disorder F43.10 ; Attention deficit hyperactivity disorder (ADHD), inattentive type, 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 and Borderline personality disorder F60.3 [facility] [address] [id number] [address] [place] [phone] Jan, Paranoid schizophrenia F20.0 ; Posttraumatic stress disorder F43.10 ; Attention deficit hyperactivity disorder (ADHD), inattentive type, 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 and Borderline personality disorder F60.3 [facility] [address] [id number] [address] [place] [phone] Jan, Paranoid schizophrenia F20.0 [facility] [address] [id number] [address] [place] [phone] Jan, Paranoid schizophrenia F20.0 [facility] [address] [facility] [id number] [address] [place] [address] Jan, Paranoid schizophrenia F20.0 ; Posttraumatic stress disorder F43.10 ; Attention deficit hyperactivity disorder (ADHD), inattentive type, 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 and Borderline personality disorder F60.3 [facility] [address] [id number] [address] [place] [phone] Dec, [facility] [address] [id number] [address] [place] [address] Nov, Paranoid schizophrenia F20.0 ; Posttraumatic stress disorder F43.10 ; Attention deficit hyperactivity disorder (ADHD), inattentive type, 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 and Borderline personality disorder F60.3 [facility] [address] [id number] [address] [place] [phone] Nov, [facility] [address] [id number] [address] [place] [address] Oct, Paranoid schizophrenia F20.0 [facility] [address] [facility] [id number] [address] [place] [phone] Oct, Paranoid schizophrenia F20.0 ; Posttraumatic stress disorder F43.10 ; Attention deficit hyperactivity disorder (ADHD), inattentive type, 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 ; Borderline personality disorder F60.3 and Other long-term (current) 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 Z79.899 [facility] [address] [id number] [address] [place] [phone] Oct, [facility] [address] [facility] [id number] [address] [place] [phone] Oct, [facility] [address] [id number] [address] [place] [address] Sep, [facility] [address] [id number] [address] [place] [address] Sep, Paranoid schizophrenia F20.0 ; Posttraumatic stress disorder F43.10 ; Attention deficit hyperactivity disorder (ADHD), inattentive type, 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 and Borderline personality disorder F60.3 [facility] [address] [facility] [id number] [address] [place] [phone] Sep, Paranoid schizophrenia F20.0 [facility] [address] [id number] [address] [place] [address] Aug, Paranoid schizophrenia F20.0 ; Posttraumatic stress disorder F43.10 ; Attention deficit hyperactivity disorder (ADHD), inattentive type, 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 and Borderline personality disorder F60.3 [facility] [address] [facility] [id number] [address] [place] [phone] Aug, Paranoid schizophrenia F20.0 ; Posttraumatic stress disorder F43.10 ; Attention deficit hyperactivity disorder (ADHD), inattentive type, 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 and Borderline personality disorder F60.3 [facility] [address] [id number] [address] [place] [phone] Aug, [facility] [address] [facility] [id number] [address] [place] [address] Jul, Paranoid schizophrenia F20.0 ; Posttraumatic stress disorder F43.10 ; Attention deficit hyperactivity disorder (ADHD), inattentive type, 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 and Borderline personality disorder F60.3 [facility] [address] [id number] [address] [place] [address] Jul, Paranoid schizophrenia F20.0 [facility] [address] [id number] [address] [place] [phone] Jul, Paranoid schizophrenia F20.0 ; Posttraumatic stress disorder F43.10 ; Attention deficit hyperactivity disorder (ADHD), inattentive type, 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 and Borderline personality disorder F60.3 [facility] [address] [id number] [address] [place] [phone] Jun, Paranoid schizophrenia F20.0 ; Posttraumatic stress disorder F43.10 ; Attention deficit hyperactivity disorder (ADHD), inattentive type, 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 and Borderline personality disorder F60.3 [facility] [address] [id number] [address] [place] [address] May, Other long-term (current) 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 Z79.899 [facility] [address] [id number] [address] [place] [phone] May, [facility] [address] [id number] [address] [place] [phone] May, [facility] [address] [facility] [id number] [address] [place] [phone] May, Attention deficit hyperactiv ity disorder (ADHD), inattentive type, mild F90.0 [facility] [address] [facility] [id number] [address] [place] [phone] May, [facility] [address] [id number] [address] [place] [phone] May, Attention deficit hyperactiv ity disorder (ADHD), inattentive type, mild F90.0 [facility] [address] [id number] [address] [place] [address] May, Paranoid schizophrenia F20.0 ; Posttraumatic stress disorder F43.10 ; Attention deficit hyperactivity disorder (ADHD), inattentive type, 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 and Other long-term (current) 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 Z79.899 [facility] [address] [id number] [address] [place] [phone] Apr, Paranoid schizophrenia F20.0 [facility] [address] [id number] [address] [place] [phone] Apr, Paranoid schizophrenia F20.0 ; Posttraumatic stress disorder F43.10 and Attention deficit hyperactivity disorder (ADHD), inattentive type, 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 [facility] [address] [id number] [address] [place] [phone] February, [facility] [address] [id number] [address] [place] [address] February, Paranoid schizophrenia F20.0 ; Posttraumatic stress disorder F43.10 and Attention deficit hyperactivity disorder (ADHD), inattentive type, 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 [address] [id number] [address] [place] [id number] Dec, Dental examination Z01.20 [facility] [address] [id number] [address] [place] [id number] Nov, Dental examination Z01.20 [facility] [address] [id number] [address] [place] [id number] Nov, Dental examination Z01.20 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 [facility] [address] [id number] [address] [place] [address] Aug, Paranoid schizophrenia F20.0 ; Posttraumatic stress disorder F43.10 and Attention deficit hyperactivity disorder (ADHD), inattentive type, 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 [facility] [address] [id number] [address] [place] [phone] Aug, Strep throat J02.0 and Cough R05 [facility] [address] [id number] [address] [place] [phone] Aug, [facility] [address] [id number] [address] [place] [phone] 24 Jul, 2016 Paranoid schizophrenia F20.0 ; Posttraumatic stress disorder F43.10 and Attention deficit hyperactivity disorder (ADHD), inattentive type, 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 [address] [id number] [address] [place] [address] [id number] Jun, Dental examination Z01.20 [facility] [address] [id number] [address] [place] [phone] Jun, [facility] [address] [id number] [address] [place] [phone] May, Paranoid schizophrenia F20.0 [facility] [address] [id number] [address] [place] [phone] May, Paranoid schizophrenia F20.0 ; Posttraumatic stress disorder F43.10 and Attention deficit hyperactivity disorder (ADHD), inattentive type, 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 [facility] [address] [id number] [address] [place] [phone] May, [facility] [address] [id number] [address] [place] [phone] May, Paranoid schizophrenia F20.0 [facility] [address] [id number] [address] [place] [phone] May, [facility] [address] [id number] [address] [place] [phone] May, Paranoid schizophrenia F20.0 [facility] [address] [id number] [address] [place] [phone] May, Schizoaffective disorder, un specified F25.9 [facility] [address] [id number] [address] [place] [phone] May, Schizoaffective disorder, un specified F25.9 [facility] [address] [id number] [address] [place] [phone] May, [facility] [address] [id number] [address] [place] [phone] May, Paranoid schizophrenia F20.0 [facility] [address] [id number] [address] [place] [phone] May, Paranoid schizophrenia F20.0 ; Posttraumatic stress disorder F43.10 and Attention deficit hyperactivity disorder (ADHD), inattentive type, 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 [facility] [address] [id number] [address] [place] [address], [place] [address] February, [facility] [address] [id number] [address] [place] [phone] February, [facility] [address] [id number] [address] [place] [address], [place] [address] February, [facility] [address] [id number] [address] [place] [phone] February, [facility] [address] [id number] [address] [place] [address], [place] [address] Jan, Paranoid schizophrenia F20.0 [facility] [address] [id number] [address] [place] [address] [id number] Jan, Dental examination Z01.20 [facility] [address] [id number] [address] [place] [address] [id number] Jan, Dental caries K02.9 [facility] [address] [id number] [address] [place] [address] [phone] Jan, Dental examination Z01.20 [facility] [address] [id number] [address] [place] [address] [id number] Dec, Encounter for dental examina tion Z01.20 [facility] [address] [id number] [address] [place] [phone] Dec, Paranoid schizophrenia F20.0 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 [facility] [address] [id number] [address] [place] [phone] Nov, Schizoaffective disorder, un specified F25.9 [facility] [address] [id number] [address] [place] [phone] Oct, Paranoid schizophrenia F20.0 [facility] [address] [id number] [address] [place] [phone] Oct, [facility] [address] [id number] [address] [place] [phone] Sep, Paranoid schizophrenia F20.0 ; Posttraumatic stress disorder F43.10 and Attention deficit hyperactivity disorder (ADHD), inattentive type, 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 [facility] [address] [id number] [address] [place] [phone] Sep, [facility] [address] [facility] [facility] [id number] [address] [place], [place] [address] Sep, Paranoid schizophrenia F20.0 ; Posttraumatic stress disorder F43.10 and Attention deficit hyperactivity disorder (ADHD), inattentive type, 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 [facility] [address] [facility] [id number] [address] [place] [address] Aug, Paranoid schizophrenia F20.0 [facility] [address] [facility] [id number] [address] [place] [address] Aug, [facility] [address] [facility] [id number] [address] [place] [address] Aug, Posttraumatic stress disorde r F43.10 ; Paranoid schizophrenia F20.0 and Attention deficit hyperactivity disorder (ADHD), inattentive type, 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 [facility] [address] [facility] [id number] [address] [place] [address] Jul, Bipolar disorder, unspecifie d F31.9 [facility] [address] [facility] [id number] [address] [place] [address] Jul, [facility] [address] [facility] [id number] [address] [place] [address] Jun, [facility] [address] [facility] [id number] [address] [place] [address] Jun, Schizoaffective disorder, ch ronic 295.72 ; Posttraumatic stress disorder 309.81 and Attention deficit disorder of childhood without mention of hyperactivity 314.00 [facility] [address] [facility] [id number] [address] [place] [address] May, [facility] [address] [facility] [id number] [address] [place] [address] May, [facility] [address] [facility] [id number] [address] [place] [address] May, Schizoaffective disorder, ch ronic 295.72 ; Posttraumatic stress disorder 309.81 ; Attention deficit disorder of childhood without mention of hyperactivity 314.00 and Bipolar disorder, unspecified 296.80 [facility] [address] [facility] [id number] [address] [place] [address] Apr, Schizoaffective disorder, ch ronic 295.72 [facility] [address] [facility] [id number] [address] [place] [address] Apr, [facility] [address] [id number] [address] [place] [address] Apr, Schizoaffective disorder, ch ronic 295.72 ; Posttraumatic stress disorder 309.81 and Attention deficit disorder of childhood without mention of hyperactivity 314.00 [facility] [address] [facility] [id number] [address] [place] [address] Mar, Disorganized schizophrenia, 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 [facility] [address] [facility] [id number] [address] [place] [address] Mar, [facility] [address] [facility] [id number] [address] [place] [address] Mar, [facility] [address] [facility] [id number] [address] [place] [address] Mar, [facility] [address] [facility] [id number] [address] [place] [address] Mar, [facility] [address] [facility] [id number] [address] [place] [address] February, Schizoaffective disorder, ch ronic 295.72 [facility] [address] [facility] [id number] [address] [place] [address] February, [facility] [address] [facility] [id number] [address] [place] [address] February, Attention 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 ; Posttraumatic stress disorder 309.81 and Schizoaffective disorder, chronic 295.72 [facility] [address] [id number] [address] [place] [address], [place] [address] 29 Jan, 2015 [facility] [address] [id number] [address] [place] [address], [place] [address] 14 Jan, 2015 [facility] [address] [id number] [address] [place] [address], [place] [address] Jan, [facility] [address] [id number] [address] [place] [address], [place] [address] Dec, [facility] [address] [id number] [address] [place] [address], [place] [address] Dec, [facility] [address] [id number] [address] [place] [address], [place] [address] Dec, [facility] [address] [id number] [address] [place] [address], [place] [address] Dec, [facility] [address] [id number] [address] [place] [address], [place] [address] Dec, [facility] [address] [id number] [address] [place] [address], [place] [address] Dec, [facility] [address] [id number] [address] [place] [address], [place] [address] Dec, [facility] [address] [id number] [address] [place] [address], [place] [address] Dec, [facility] [address] [id number] [address] [place] [address], [place] [address] Nov, [facility] [address] [id number] [address] [place] [address], [place] [address] Nov, [facility] [address] [id number] [address] [place] [address], [place] [address] Nov, [facility] [address] [id number] [address] [place] [address], [place] [address] Nov, [facility] [address] [id number] [address] [place] [address], [place] [address] Nov, [facility] [address] [id number] [address] [place] [address], [place] [address] Nov, [facility] [address] [id number] [address] [place] [address], [place] [address] Nov, [facility] [address] [id number] [address] [place] [address], [place] [address] Nov, [facility] [address] [id number] [address] [place] [address], [place] [address] Nov, [facility] [address] [id number] [address] [place] [address], [place] [address] Nov, [facility] [address] [id number] [address] [place] [address], [place] [address] Oct, [facility] [address] [id number] [address] [place] [address], [place] [address] Oct, [facility] [address] [id number] [address] [place] [address], [place] [address] Oct, [facility] [address] [id number] [address] [place] [address], [place] [address] Oct, [facility] [address] [id number] [address] [place] [address], [place] [address] Oct, [facility] [address] [id number] [address] [place] [address], [place] [address] Oct, [facility] [address] [id number] [address] [place] [address], [place] [address] Oct, [facility] [address] [id number] [address] [place] [address], [place] [address] Sep, [facility] [address] [id number] [address] [place] [address], [place] [address] Sep, [facility] [address] [id number] [address] [place] [address], [place] [address] Sep, [facility] [address] [id number] [address] [place] [address], [place] [address] 15 Sep, 2014 [facility] [address] [id number] [address] [place] [address], [place] [address] Aug, [facility] [address] [id number] [address] [place] [address], [place] [address] Aug, [facility] [address] [id number] [address] [place] [address], [place] [address] Aug, [facility] [address] [id number] [address] [place] [address], [place] [address] Aug, [facility] [address] [id number] [address] [place] [address], [place] [address] Aug, [facility] [address] [id number] [address] [place] [address], [place] [address] Aug, [facility] [address] [id number] [address] [place] [address], [place] [address] Jul, [facility] [address] [id number] [address] [place] [address], [place] [address] 29 Jul, 2014 [facility] [address] [id number] [address] [place] [address], [place] [address] 24 Jul, 2014 [facility] [address] [id number] [address] [place] [address], [place] [address] 24 Jul, 2014 [facility] [address] [id number] [address] [place] [address], [place] [address] 15 Jul, 2014 [facility] [address] [id number] [address] [place] [address], [place] [address] 15 Jul, 2014 [facility] [address] [id number] [address] [place] [address], [place] [address] 27 Jun, 2014 [facility] [address] [id number] [address] [place] [address], [place] [address] 27 Jun, 2014 [facility] [address] [id number] [address] [place] [address], [place] [address] Jun, 2013 [facility] [address] [id number] [facility] [place] [address] 26 Jun, 2013 [facility] [address] [id number] [facility] [place] [address] Jun, 2013 [facility] [address] [id number] [address] [place] [address], [place] [address] Jun, 2013 [facility] [address] [id number] [address] [place] [address], [place] [address] 16 Jun, 2013 [facility] [address] [id number] [address] [place] [address], [place] [address] 16 Jun, 2013 [facility] [address] [id number] [address] [place] [address], [place] [address] Jun, 2013 [facility] [address] [id number] [address] [place] [address], [place] [address] Jun, 2013 [facility] [address] [id number] [address] [place] [address], [place] [address] Jun, [facility] [address] [id number] [address] [place] [address], [place] [address] May, [facility] [address] [id number] [address] [place] [address], [place] [address] May, [facility] [address] [id number] [address] [place] [address], [place] [address] May, [facility] [address] [id number] [address] [place] [address], [place] [address] May, [facility] [address] [id number] [address] [place] [address], [place] [address] May, [facility] [address] [id number] [address] [place] [address], [place] [address] May, [facility] [address] [id number] [address] [place] [address], [place] [address] May, [facility] [address] [id number] [address] [place] [address], [place] [address] May, [facility] [address] [id number] [address] [place] [address], [place] [address] May, [facility] [address] [id number] [address] [place] [address], [place] [address] May, [facility] [address] [id number] [address] [place] [address], [place] [address] Apr, [facility] [address] [id number] [address] [place] [address], [place] [address] Apr, [facility] [address] [id number] [address] [place] [address], [place] [address] Apr, [facility] [address] [id number] [address] [place] [address], [place] [address] Apr, [facility] [address] [id number] [address] [place] [address], [place] [address] Apr, [facility] [address] [id number] [address] [place] [address], [place] [address] Apr, [facility] [address] [id number] [address] [place] [address], [place] [address] Apr, [facility] [address] [id number] [address] [place] [address], [place] [address] Apr, [facility] [address] [id number] [address] [place] [address], [place] [address] Apr, [facility] [address] [id number] [address] [place] [address], [place] [address] Apr, [facility] [address] [id number] [address] [place] [address], [place] [address] Mar, [facility] [address] [id number] [address] [place] [address], [place] [address] Mar, [facility] [address] [id number] [address] [place] [address], [place] [address] Mar, [facility] [address] [id number] [address] [place] [address], [place] [address] Mar, [facility] [address] [id number] [address] [place] [address], [place] [address] Mar, [facility] [address] [id number] [address] [place] [address], [place] [address] Mar, [facility] [address] [id number] [address] [place] [address], [place] [address] Mar, [facility] [address] [id number] [address] [place] [address], [place] [address] Mar, [facility] [address] [id number] [address] [place] [address], [place] [address] Mar, [facility] [address] [id number] [address] [place] [address], [place] [address] Mar, [facility] [address] [id number] [address] [place] [address], [place] [address] Mar, [facility] [address] [id number] [address] [place] [address], [place] [address] Mar, [facility] [address] [id number] [address] [place] [address], [place] [address] Mar, [facility] [address] [id number] [address] [place] [address], [place] [address] Mar, [facility] [address] [id number] [address] [place] [address], [place] [address] Mar, [facility] [address] [id number] [address] [place] [address], [place] [address] Mar, [facility] [address] [id number] [address] [place] [address], [place] [address] Mar, [facility] [address] [id number] [address] [place] [address], [place] [address] 09 Mar, 2014 [facility] [address] [id number] [address] [place] [address], [place] [address] Mar, [facility] [address] [id number] [facility] [place] [address] Mar, [facility] [address] [id number] [address] [place] [address], [place] [address] February, [facility] [address] [id number] [address] [place] [address], [place] [address] February, [facility] [address] [id number] [address] [place] [address], [place] [address] February, [facility] [address] [id number] [address] [place] [address], [place] [address] February, [facility] [address] [id number] [address] [place] [address], [place] [address] February, [facility] [address] [id number] [address] [place] [address], [place] [address] February, [facility] [address] [id number] [address] [place] [address], [place] [address] February, [facility] [address] [id number] [address] [place] [address], [place] [address] February, [facility] [address] [id number] [address] [place] [address], [place] [address] February, [facility] [address] [id number] [address] [place] [address], [place] [address] February, [facility] [address] [id number] [address] [place] [address], [place] [address] February, [facility] [address] [id number] [address] [place] [address], [place] [address] February, [facility] [address] [id number] [address] [place] [address], [place] [address] February, [facility] [address] [id number] [address] [place] [address], [place] [address] February, [facility] [address] [id number] [address] [place] [address], [place] [address] February, [facility] [address] [id number] [address] [place] [address], [place] [address] February, [facility] [address] [id number] [address] [place] [address], [place] [address] February, [facility] [address] [id number] [address] [place] [address], [place] [address] February, [facility] [address] [id number] [address] [place] [address], [place] [address] February, [facility] [address] [id number] [address] [place] [address], [place] [address] February, [facility] [address] [id number] [address] [place] [address], [place] [address] February, [facility] [address] [id number] [address] [place] [address], [place] [address] Jan, [facility] [address] [id number] [address] [place] [address], [place] [address] Jan, [facility] [address] [id number] [address] [place] [address], [place] [address] Jan, [facility] [address] [id number] [address] [place] [address], [place] [address] Jan, [facility] [address] [id number] [address] [place] [address], [place] [address] Jan, [facility] [address] [id number] [address] [place] [address], [place] [address] Jan, [facility] [address] [id number] [address] [place] [address], [place] [address] Jan, [facility] [address] [id number] [address] [place] [address], [place] [address] Jan, [facility] [address] [id number] [address] [place] [address], [place] [address] Dec, [facility] [address] [id number] [facility] [place] [address] 20 Dec, 2013 [facility] [address] [id number] [facility] [place] [address] 20 Dec, 2013 [facility] [address] [id number] [facility] [place] [address] 19 Dec, 2013 [facility] [address] [id number] [address] [place] [address], [place] [address] 19 Dec, 2013 [facility] [address] [id number] [address] [place] [address], [place] [address] 15 Dec, 2013 [facility] [place] [facility] [address] [id number] [address] [place] [address], [place] [address] 15 Dec, 2013 [facility] [address] [id number] [address] [place] [address], [place] [address] 11 Dec, 2013 [facility] [place] [facility] [address] [id number] [address] [place] [address], [place] [address] 10 Dec, 2013 [facility] [place] [facility] [address] [id number] [address] [place] [address], [place] [address] 10 Dec, 2013 [facility] [place] [facility] [address] [id number] [address] [place] [address], [place] [address] 18 Nov, 2013 [facility] [place] [facility] [address] [id number] [address] [place] [address], [place] [address] 17 Nov, 2013 [facility] [place] [facility] [address] [id number] [address] [place] [address], [place] [address] Nov, [facility] [place] [facility] [address] [id number] [address] [place] [address], [place] [address] 05 Nov, 2013 [facility] [place] [facility] [address] [id number] [address] [place] [address], [place] [address] 05 Nov, 2013 [facility] [place] [facility] [address] [id number] [address] [place] [address], [place] [address] Oct, [facility] [place] [facility] [address] [id number] [address] [place] [address] Oct, [facility] [address] [id number] [address] [place] [address], [place] [address] Oct, [facility] [address] [id number] [address] [place] [address], [place] [address] Sep, [facility] [address] [id number] [address] [place] [address], [place] [address] Sep, [facility] [address] [id number] [address] [place] [address], [place] [address] Sep, [facility] [address] [id number] [address] [place] [address], [place] [address] Sep, [facility] [address] [id number] [address] [place] [address], [place] [address] Aug, [facility] [address] [id number] [address] [place] [address], [place] [address] Aug, [facility] [address] [id number] [address] [place] [address], [place] [address] Jul, [facility] [address] [id number] [address] [place] [address], [place] [address] Jul, [facility] [address] [id number] [address] [place] [address], [place] [address] Jul, [facility] [address] [id number] [address] [place] [address], [place] [address] Jul, [facility] [address] [id number] [address] [place] [address], [place] [address] Jul, [facility] [address] [id number] [address] [place] [address], [place] [address] Jun, [facility] [address] [id number] [address] [place] [address], [place] [address] Jun, [facility] [address] [id number] [address] [place] [address], [place] [address] 19 Jun, 2013 [facility] [place] [facility] [address] [id number] [address] [place] [address], [place] [address] 18 Jun, 2013 [facility] [address] [id number] [address] [place] [address], [place] [address] [address], [address] [facility] [address] [id number] [address] [place] [address], [place] [address] 12 Jun, 2013 [facility] [address] [id number] [address] [place] [address], [place] [address] 11 Jun, 2013 [facility] [address] [id number] [address] [place] [address], [place] [address] 30 May, 2013 [facility] [address] [id number] [address] [place] [address], [place] [address] May, [facility] [address] [id number] [address] [place] [address], [place] [address] Apr, [facility] [address] [id number] [address] [place] [address], [place] [address] Apr, [facility] [address] [id number] [address] [place] [address], [place] [address] Apr, [facility] [address] [id number] [address] [place] [address], [place] [address] Mar, [facility] [address] [id number] [address] [place] [address], [place] [address] Mar, [facility] [address] [id number] [address] [place] [address], [place] [address] February, [facility] [address] [id number] [address] [place] [address], [place] [address] February, [facility] [address] [id number] [address] [place] [address], [place] [address] February, [facility] [address] [id number] [address] [place] [address], [place] [address] February, [facility] [address] [id number] [address] [place] [address], [place] [address] 19 Jan, 2013 [facility] [address] [id number] [address] [place] [address], [place] [address] 17 Jan, 2013 [facility] [address] [id number] [address] [place] [address], [place] [address] 16 Jan, 2013 [facility] [address] [id number] [address] [place] [address], [place] [address] 29 Dec, 2012 [facility] [address] [id number] [address] [place] [address], [place] [address] Dec, [facility] [address] [id number] [address] [place] [address], [place] [address] Dec, [facility] [address] [id number] [address] [place] [address], [place] [address] 08 Dec, 2012 [facility] [address] [id number] [address] [place] [address], [place] [address] Nov, [facility] [address] [id number] [address] [place] [address], [place] [address] Nov, [facility] [address] [id number] [address] [place] [address], [place] [address] Oct, [facility] [address] [id number] [address] [place] [address], [place] [address] Oct, [facility] [address] [id number] [address] [place] [address], [place] [address] Oct, [facility] [address] [id number] [address] [place] [address], [place] [address] Oct, [facility] [address] [id number] [address] [place] [address], [place] [address] Aug, [facility] [address] [id number] [address] [place] [address], [place] [address] Aug, [facility] [address] [id number] [address] [place] [address], [place] [address] 18 Jun, 2012 [facility] [address] [id number] [facility] [place] [address] May, [facility] [address] [id number] [address] [place] [address], [place] [address] May, [facility] [address] [id number] [address] [place] [address], [place] [address] Apr, [facility] [address] [id number] [address] [place] [address], [place] [address] Apr, [facility] [address] [id number] [address] [place] [address], [place] [address] Apr, [facility] [address] [id number] [address] [place] [address], [place] [address] Mar, [facility] [address] [id number] [address] [place] [address], [place] [address] Mar, [facility] [address] [id number] [address] [place] [address], [place] [address] Mar, [facility] [address] [id number] [address] [place] [address], [place] [address] Mar, [facility] [address] [id number] [address] [place] [address], [place] [address] Mar, [facility] [address] [id number] [address] [place] [address], [place] [address] February, [facility] [address] [id number] [address] [place] [address], [place] [address] February, [facility] [address] [id number] [address] [place] [address], [place] [address] February, [facility] [address] [id number] [address] [place] [address], [place] [address] February, [facility] [address] [id number] [address] [place] [address], [place] [address] February, [facility] [address] [id number] [address] [place] [address], [place] [address] February, [facility] [address] [id number] [address] [place] [address], [place] [address] February, [facility] [address] [id number] [address] [place] [address], [place] [address] Jan, [facility] [address] [id number] [address] [place] [address], [place] [address] Jan, [facility] [address] [id number] [address] [place] [address], [place] [address] 17 Jan, 2012 [facility] [address] [id number] [address] [place] [address], [place] [address] Jan, [facility] [address] [id number] [address] [place] [address], [place] [address] Jan, [facility] [address] [id number] [address] [place] [address], [place] [address] Jan, [facility] [address] [id number] [address] [place] [address], [place] [address] 30 Dec, 2011 [facility] [address] [id number] [address] [place] [address], [place] [address] 24 Dec, 2011 [facility] [address] [id number] [address] [place] [address], [place] [address] Dec, [facility] [address] [id number] [address] [place] [address], [place] [address] Dec, [facility] [address] [id number] [address] [place] [address], [place] [address] Dec, [facility] [address] [id number] [address] [place] [address], [place] [address] Nov, [facility] [address] [id number] [address] [place] [address], [place] [address] Nov, [facility] [address] [id number] [address] [place] [address], [place] [address] Nov, [facility] [address] [id number] [address] [place] [address], [place] [address] 14 Nov, 2011 [facility] [address] [id number] [address] [place] [address], [place] [address] 10 Nov, 2011 [facility] [address] [id number] [address] [place] [address], [place] [address] Nov, [facility] [address] [id number] [address] [place] [address], [place] [address] Oct, [facility] [address] [id number] [address] [place] [address], [place] [address] Oct, [facility] [address] [id number] [address] [place] [address], [place] [address] Oct, [facility] [address] [id number] [address] [place] [address], [place] [address] Oct, [facility] [address] [id number] [address] [place] [address], [place] [address] Oct, [facility] [address] [id number] [address] [place] [address], [place] [address] Sep, [facility] [address] [id number] [address] [place] [address], [place] [address] Sep, [facility] [address] [id number] [address] [place] [address], [place] [address] Sep, [facility] [address] [id number] [address] [place] [address], [place] [address] [address], [address] [facility] [address] [id number] [address] [place] [address], [place] [address] 14 Sep, 2011 [facility] [address] [id number] [address] [place] [address], [place] [address] [address], [address] [facility] [address] [id number] [address] [place] [address], [place] [address] [address], [address] [facility] [address] [id number] [address] [place] [address], [place] [address] Sep, [facility] [address] [id number] [address] [place] [address], [place] [address] Sep, [facility] [address] [id number] [address] [place] [address], [place] [address] Aug, [facility] [address] [id number] [address] [place] [address], [place] [address] Aug, [facility] [address] [id number] [address] [place] [address], [place] [address] Aug, [facility] [address] [id number] [address] [place] [address], [place] [address] Aug, [facility] [address] [id number] [address] [place] [address], [place] [address] Aug, [facility] [address] [id number] [address] [place] [address], [place] [address] Aug, [facility] [address] [id number] [address] [place] [address], [place] [address] Aug, [facility] [address] [id number] [address] [place] [address], [place] [address] Aug, [facility] [address] [id number] [address] [place] [address], [place] [address] Aug, [facility] [address] [id number] [address] [place] [address], [place] [address] Aug, [facility] [address] [id number] [address] [place] [address], [place] [address] Aug, [facility] [address] [id number] [address] [place] [address], [place] [address] Aug, [facility] [address] [id number] [address] [place] [address], [place] [address] Jul, [facility] [address] [id number] [address] [place] [address], [place] [address] Jul, [facility] [address] [id number] [address] [place] [address] Jul, [facility] [address] [id number] [address] [place] [address] Jul, [facility] [address] [id number] [address] [place] [address] Jul, [facility] [address] [id number] [address] [place] [address] Jul, [facility] [address] [id number] [address] [place] [address] Jul, [facility] [address] [id number] [address] [place] [address] Jul, [facility] [address] [id number] [address] [place] [address] Jul, [facility] [address] [id number] [address] [place] [address] Jul, [facility] [address] [id number] [address] [place] [address] Nov, [facility] [address] [id number] [address] [place] [address] Aug, [facility] [address] [id number] [address] [place] [address] Aug, [facility] [address] [id number] [address] [place] [address] Aug, [facility] [address] [id number] [address] [place] [address] Aug, [facility] [address] [id number] [address] [place] [address] Jul, IMMUNIZATIONS No Known Immunizations SOCIAL HISTORY Never Assessed REASON FOR VISIT EMR-[facility] [place] PLAN OF CARE VITAL SIGNS [...]
--- OUTSIDE RECORDS SUMMARY | 2020-04-04 02:33 | XMS REPORT ---
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 Active 14360756 Problem Generalized anxiety disorder 300.02 A ctive 18303870 Problem Obsessive-compulsive disorders 300.3 Active 751447765 Problem Catatonic schizophrenia, 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 525393526 Problem Disorganized schizophrenia, 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 89231526 Problem Paranoid schizophrenia F20.0 Active 45548470 Problem Borderline personality disorder F60.3 Active 61001940 Problem Paranoid schizophrenia, unspecified condition 295.30 Active 53834106 Problem Schizoaffective disorder, depressive type F25.1 Active 60559160 Problem Bipolar disorder, unspecified 296.80 Active 76232601 Problem Schizoaffective disorder, unspecified F25.9 Active 86550474 Problem Attention deficit hyperactivity disorder (ADHD), inattentive type, 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 11843873 Problem Posttraumatic stress disorder F43.10 Active 87831623 Problem High risk medication use Z79.899 Activ e [id number] ALLERGIES No Information ENCOUNTERS Encounter Location Date Diagnosis [facility], [place] [address] [facility] [id number] [address] [place] [phone] Jan, [facility], [place] [address] [facility] [id number] [address] [place] [address] Dec, Paranoid schizophrenia F20.0 ; Posttraumatic stress disorder F43.10 ; Attention deficit hyperactivity disorder (ADHD), inattentive type, 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 and Borderline personality disorder F60.3 [facility], [place] [address] [facility] [id number] [address] [place] [address] Dec, Paranoid schizophrenia F20.0 ; Posttraumatic stress disorder F43.10 ; Attention deficit hyperactivity disorder (ADHD), inattentive type, 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 and Borderline personality disorder F60.3 [facility], [place] [address] [place] [id number] [address] [place] [address] Oct, Paranoid schizophrenia F20.0 ; Posttraumatic stress disorder F43.10 ; Attention deficit hyperactivity disorder (ADHD), inattentive type, 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 and Borderline personality disorder F60.3 [facility], [place] [address] [place] [id number] [address] [place] [phone] Oct, Paranoid schizophrenia F20.0 ; Posttraumatic stress disorder F43.10 ; Attention deficit hyperactivity disorder (ADHD), inattentive type, 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 and Borderline personality disorder F60.3 [facility], [place] [address] [place] [id number] [address] [place] [phone] Aug, [facility], [place] [address] [place] [id number] [place] [address] Aug, Paranoid schizophrenia F20.0 ; Posttraumatic stress disorder F43.10 ; Attention deficit hyperactivity disorder (ADHD), inattentive type, 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 and Borderline personality disorder F60.3 [facility] [address] [facility] [id number] [address] [place] [phone] Jul, Dry skin dermatitis L85.3 [facility], [place] [address] [facility] [id number] [address] [place] [phone] Jul, [facility], [place] [address] [facility] [id number] [address] [place] [phone] Jul, Paranoid schizophrenia F20.0 [facility], [place] [address] [facility] [id number] [address] [place] [address] May, Paranoid schizophrenia F20.0 ; Posttraumatic stress disorder F43.10 ; Attention deficit hyperactivity disorder (ADHD), inattentive type, 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 and Borderline personality disorder F60.3 [facility], [place] [address] [facility] [id number] [address] [place] [phone] May, [facility], [place] [address] [id number] [place] [address] May, Paranoid schizophrenia F20.0 [facility], [place] [address] [id number] [address] [place] [address], [place] [address] May, Paranoid schizophrenia F20.0 ; Posttraumatic stress disorder F43.10 ; Attention deficit hyperactivity disorder (ADHD), inattentive type, 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 and Borderline personality disorder F60.3 [facility], [place] [address] [id number] [facility] [place] [address] Apr, [facility], [place] [address] [id number] [address] [place] [address], [place] [address] Apr, Paranoid schizophrenia F20.0 ; Posttraumatic stress disorder F43.10 ; Attention deficit hyperactivity disorder (ADHD), inattentive type, 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 and Borderline personality disorder F60.3 [facility], [place] [address] [id number] [address] [place] [address] Apr, [facility], [place] [address] [id number] [address] [place] [phone] Apr, Schizoaffective disorder, de pressive type F25.1 and Borderline personality disorder F60.3 [facility], [place] [address] [id number] [address] [place] [address] Apr, Paranoid schizophrenia F20.0 ; Posttraumatic stress disorder F43.10 ; Attention deficit hyperactivity disorder (ADHD), inattentive type, 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 and Borderline personality disorder F60.3 [facility], [place] [address] [id number] [address] [place] [address] Apr, [facility], [place] [address] [id number] [address] [place] [address] Apr, Paranoid schizophrenia F20.0 ; Posttraumatic stress disorder F43.10 ; Attention deficit hyperactivity disorder (ADHD), inattentive type, 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 and Borderline personality disorder F60.3 [facility], [place] [address] [id number] [address] [place] [address] Apr, [facility], [place] [address] [id number] [address] [place] [address] Mar, Paranoid schizophrenia F20.0 [facility], [place] [address] [id number] [address] [place] [address] Mar, [facility], [place] [address] [id number] [address] [place] [phone] Mar, Paranoid schizophrenia F20.0 ; Posttraumatic stress disorder F43.10 ; Attention deficit hyperactivity disorder (ADHD), inattentive type, 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 and Borderline personality disorder F60.3 [facility], [place] [address] [id number] [address] [place] [phone] February, Paranoid schizophrenia F20.0 [facility], [place] [address] [id number] [address] [place] [address] February, Paranoid schizophrenia F20.0 ; Posttraumatic stress disorder F43.10 ; Attention deficit hyperactivity disorder (ADHD), inattentive type, 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 and Borderline personality disorder F60.3 [facility], [place] [address] [id number] [address] [place] [phone] February, Paranoid schizophrenia F20.0 ; Posttraumatic stress disorder F43.10 ; Attention deficit hyperactivity disorder (ADHD), inattentive type, 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 and Borderline personality disorder F60.3 [facility], [place] [address] [id number] [address] [place] [phone] February, [facility], [place] [address] [id number] [address] [place] [phone] February, Paranoid schizophrenia F20.0 [facility], [place] [address] [id number] [address] [place] [phone] February, Paranoid schizophrenia F20.0 [facility], [place] [address] [id number] [address] [place] [address] February, Paranoid schizophrenia F20.0 ; Posttraumatic stress disorder F43.10 ; Attention deficit hyperactivity disorder (ADHD), inattentive type, 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 and Borderline personality disorder F60.3 [facility], [place] [address] [id number] [address] [place] [address] Jan, Paranoid schizophrenia F20.0 ; Posttraumatic stress disorder F43.10 ; Attention deficit hyperactivity disorder (ADHD), inattentive type, 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 and Borderline personality disorder F60.3 [facility], [place] [address] [id number] [address] [place] [address] Jan, Paranoid schizophrenia F20.0 [facility], [place] [address] [id number] [address] [place] [phone] Jan, Paranoid schizophrenia F20.0 [facility], [place] [address] [facility] [id number] [address] [place] [phone] Jan, Paranoid schizophrenia F20.0 ; Posttraumatic stress disorder F43.10 ; Attention deficit hyperactivity disorder (ADHD), inattentive type, 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 and Borderline personality disorder F60.3 [facility], [place] [address] [id number] [address] [place] [address] Dec, [facility], [place] [address] [id number] [address] [place] [address] Nov, Paranoid schizophrenia F20.0 ; Posttraumatic stress disorder F43.10 ; Attention deficit hyperactivity disorder (ADHD), inattentive type, 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 and Borderline personality disorder F60.3 [facility], [place] [address] [id number] [address] [place] [phone] Nov, [facility], [place] [address] [id number] [address] [place] [address] Oct, Paranoid schizophrenia F20.0 [facility], [place] [address] [facility] [id number] [address] [place] [address] Oct, Paranoid schizophrenia F20.0 ; Posttraumatic stress disorder F43.10 ; Attention deficit hyperactivity disorder (ADHD), inattentive type, 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 ; Borderline personality disorder F60.3 and Other care home (current) drug therapy Z79.899 [facility], [place] [address] [id number] [address] [place] [address] Oct, [facility], [place] [address] [facility] [id number] [address] [place] [phone] Oct, [facility], [place] [address] [id number] [address] [place] [address] Sep, [facility], [place] [address] [id number] [address] [place] [phone] Sep, Paranoid schizophrenia F20.0 ; Posttraumatic stress disorder F43.10 ; Attention deficit hyperactivity disorder (ADHD), inattentive type, 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 and Borderline personality disorder F60.3 [facility], [place] [address] [facility] [id number] [address] [place] [phone] Sep, Paranoid schizophrenia F20.0 [facility], [place] [address] [id number] [address] [place] [address] Aug, Paranoid schizophrenia F20.0 ; Posttraumatic stress disorder F43.10 ; Attention deficit hyperactivity disorder (ADHD), inattentive type, 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 and Borderline personality disorder F60.3 [facility], [place] [address] [facility] [id number] [address] [place] [phone] Aug, Paranoid schizophrenia F20.0 ; Posttraumatic stress disorder F43.10 ; Attention deficit hyperactivity disorder (ADHD), inattentive type, 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 and Borderline personality disorder F60.3 [facility], [place] [address] [id number] [address] [place] [phone] Aug, [facility], [place] [address] [facility] [id number] [address] [place] [phone] Jul, Paranoid schizophrenia F20.0 ; Posttraumatic stress disorder F43.10 ; Attention deficit hyperactivity disorder (ADHD), inattentive type, 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 and Borderline personality disorder F60.3 [facility], [place] [address] [id number] [address] [place] [phone] Jul, Paranoid schizophrenia F20.0 [facility], [place] [address] [id number] [address] [place] [phone] Jul, Paranoid schizophrenia F20.0 ; Posttraumatic stress disorder F43.10 ; Attention deficit hyperactivity disorder (ADHD), inattentive type, 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 and Borderline personality disorder F60.3 [facility], [place] [address] [id number] [address] [place] [phone] Jun, Paranoid schizophrenia F20.0 ; Posttraumatic stress disorder F43.10 ; Attention deficit hyperactivity disorder (ADHD), inattentive type, 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 and Borderline personality disorder F60.3 [facility], [place] [address] [id number] [address] [place] [phone] May, Other care home (current) dr ug therapy Z79.899 [facility], [place] [address] [id number] [address] [place] [address] May, [facility], [place] [address] [id number] [address] [place] [phone] May, [facility], [place] [address] [facility] [id number] [address] [place] [phone] May, Attention deficit hyperactiv ity disorder (ADHD), inattentive type, mild F90.0 [facility], [place] [address] [facility] [id number] [address] [place] [phone] May, [facility], [place] [address] [id number] [address] [place] [phone] May, Attention deficit hyperactiv ity disorder (ADHD), inattentive type, mild F90.0 [facility], [place] [address] [id number] [address] [place] [phone] May, Paranoid schizophrenia F20.0 ; Posttraumatic stress disorder F43.10 ; Attention deficit hyperactivity disorder (ADHD), inattentive type, 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 and Other care home (current) drug therapy Z79.899 [facility], [place] [address] [id number] [address] [place] [phone] Apr, Paranoid schizophrenia F20.0 [facility], [place] [address] [id number] [address] [place] [phone] Apr, Paranoid schizophrenia F20.0 ; Posttraumatic stress disorder F43.10 and Attention deficit hyperactivity disorder (ADHD), inattentive type, 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10 and Attention deficit hyperactivity disorder (ADHD), inattentive type, 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 [facility], [place] [address] [id number] [address] [place] [phone] Jan, Paranoid schizophrenia F20.0 ; Posttraumatic stress disorder F43.10 and Attention deficit hyperactivity disorder (ADHD), inattentive type, 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 [facility] [address] [id number] [address] [place] [id number] Dec, Dental examination Z01.20 [facility] [address] [id number] [address] [place] [id number] Nov, Dental examination Z01.20 [facility] [address] [id number] [address] [place] [id number] Nov, Dental examination Z01.20 [facility] [address] [id number] [address] [place] [id number] Nov, Dental caries K02.9 [facility], [place] [address] [id number] [address] [place] [phone] Nov, High risk medication use Z79 .899 [facility], [place] [address] [id number] [address] [place] [phone] Nov, Paranoid schizophrenia F20.0 ; Posttraumatic stress disorder F43.10 ; Attention deficit hyperactivity disorder (ADHD), inattentive type, 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 and Borderline personality disorder in adult F60.3 [facility] [address] [id number] [address] [place] [address] [id number] Oct, Dental caries K02.9 [facility], [place] [address] [id number] [address] [place] [address] Sep, Paranoid schizophrenia F20.0 ; Posttraumatic stress disorder F43.10 and Attention deficit hyperactivity disorder (ADHD), inattentive type, 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 [facility], [place] [address] [id number] [address] [place] [phone] Aug, Paranoid schizophrenia F20.0 ; Posttraumatic stress disorder F43.10 and Attention deficit hyperactivity disorder (ADHD), inattentive type, 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 [facility] [address] [id number] [address] [place] [phone] Aug, Strep throat J02.0 and Cough R05 [facility], [place] [address] [id number] [address] [place] [phone] Aug, [facility], [place] [address] [id number] [address] [place] [phone] 24 Jul, 2016 Paranoid schizophrenia F20.0 ; Posttraumatic stress disorder F43.10 and Attention deficit hyperactivity disorder (ADHD), inattentive type, 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 [facility], [place] [address] [id number] [address] [place] [phone] Jul, [facility], [place] [address] [id number] [address] [place] [phone] Jun, Paranoid schizophrenia F20.0 ; Posttraumatic stress disorder F43.10 and Attention deficit hyperactivity disorder (ADHD), inattentive type, 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 [facility] [address] [id number] [address] [place] [id number] Jun, Dental examination Z01.20 [facility], [place] [address] [id number] [address] [place] [phone] Jun, [facility], [place] [address] [id number] [address] [place] [phone] May, Paranoid schizophrenia F20.0 [facility], [place] [address] [id number] [address] [place] [phone] May, Paranoid schizophrenia F20.0 ; Posttraumatic stress disorder F43.10 and Attention deficit hyperactivity disorder (ADHD), inattentive type, 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 [facility], [place] [address] [id number] [address] [place] [phone] May, [facility], [place] [address] [id number] [address] [place] [phone] May, Paranoid schizophrenia F20.0 [facility], [place] [address] [id number] [address] [place] [phone] May, [facility], [place] [address] [id number] [address] [place] [phone] May, Paranoid schizophrenia F20.0 [facility], [place] [address] [id number] [address] [place] [phone] May, Schizoaffective disorder, un specified F25.9 [facility], [place] [address] [id number] [address] [place] [phone] May, Schizoaffective disorder, un specified F25.9 [facility], [place] [address] [id number] [address] [place] [phone] May, [facility], [place] [address] [id number] [address] [place] [phone] May, Paranoid schizophrenia F20.0 [facility], [place] [address] [id number] [address] [place] [address] May, Paranoid schizophrenia F20.0 ; Posttraumatic stress disorder F43.10 and Attention deficit hyperactivity disorder (ADHD), inattentive type, 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 [facility] [address] [id number] [address] [place] [address], [place] [address] Mar, [facility] [address] [id number] [facility] [address] Mar, Paranoid schizophrenia F20.0 ; Posttraumatic stress disorder F43.10 and Attention deficit hyperactivity disorder (ADHD), inattentive type, 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 [facility], [place] [address] [id number] [address] [place] [address], [place] [address] Mar, Paranoid schizophrenia F20.0 [facility] [place] [address] [id number] [address] [place] [address], [place] [address] Mar, Paranoid schizophrenia F20.0 ; Attention deficit hyperactivity disorder (ADHD), inattentive type, 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 and Posttraumatic stress disorder F43.10 [facility] [place] [address] [id number] [address] [place] [phone] Mar, [facility] [address] [id number] [address] [place] [address], [place] [address] Mar, Paranoid schizophrenia F20.0 ; Posttraumatic stress disorder F43.10 and Attention deficit hyperactivity disorder (ADHD), inattentive type, 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 [facility] [address] [id number] [address] [place] [address], [place] [address] February, [facility] [address] [id number] [address] [place] [phone] February, [facility] [address] [id number] [address] [place] [address], [place] [address] February, [facility] [address] [id number] [address] [place] [phone] February, [facility] [address] [id number] [address] [place] [address], [place] [address] Jan, Paranoid schizophrenia F20.0 [facility] [address] [id number] [address] [place] [id number] Jan, Dental examination Z01.20 [facility] [address] [id number] [address] [place] [address] [id number] Jan, Dental caries K02.9 [facility] [address] [id number] [address] [place] [address] [phone] Jan, Dental examination Z01.20 [facility] [address] [id number] [address] [place] [address] [phone] Dec, Encounter for dental examina tion Z01.20 [facility] [place] [address] [id number] [address] [place] [phone] Dec, Paranoid schizophrenia F20.0 [facility] [address] [id number] [address] [place] [address] [id number] Dec, Dental examination Z01.20 [facility], [place] [address] [id number] [address] [place] [address] Dec, [facility] [place] [address] [id number] [address] [place] [address] Dec, Paranoid schizophrenia F20.0 ; Posttraumatic stress disorder F43.10 and Attention deficit hyperactivity disorder (ADHD), inattentive type, 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 [facility] [place] [address] [id number] [address] [place] [address] Nov, Schizoaffective disorder, un specified F25.9 [facility] [place] [address] [id number] [address] [place] [address] Oct, Paranoid schizophrenia F20.0 [facility] [place] [address] [id number] [address] [place] [address] Oct, [facility], [place] [address] [id number] [address] [place] [address] Sep, Paranoid schizophrenia F20.0 ; Posttraumatic stress disorder F43.10 and Attention deficit hyperactivity disorder (ADHD), inattentive type, 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 [facility], [place] [address] [id number] [address] [place] [address] Sep, [facility], [place] [address] [facility] [id number] [address] [place], [place] [address] Sep, Paranoid schizophrenia F20.0 ; Posttraumatic stress disorder F43.10 and Attention deficit hyperactivity disorder (ADHD), inattentive type, 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 [facility] [place] [address] [facility] [id number] [address] [place] [address] Aug, Paranoid schizophrenia F20.0 [facility], [place] [address] [facility] [id number] [address] [place] [address] Aug, [facility], [place] [address] [facility] [id number] [address] [place] [address] Aug, Posttraumatic stress disorde r F43.10 ; Paranoid schizophrenia F20.0 and Attention deficit hyperactivity disorder (ADHD), inattentive type, 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 [facility] [place] [address] [facility] [id number] [address] [place] [address] Jul, Bipolar disorder, unspecifie d F31.9 [facility], [place] [address] [facility] [id number] [address] [place] [address] Jul, [facility] [place] [address] [facility] [id number] [address] [place] [address] Jun, [facility], [place] [address] [facility] [id number] [address] [place] [address] Jun, Schizoaffective disorder, ch ronic 295.72 ; Posttraumatic stress disorder 309.81 and Attention deficit disorder of childhood without mention of hyperactivity 314.00 [facility], [place] [address] [facility] [id number] [address] [place] [address] May, [facility], [place] [address] [facility] [id number] [address] [place] [address] May, [facility], [place] [address] [facility] [id number] [address] [place] [address] May, Schizoaffective disorder, ch ronic 295.72 ; Posttraumatic stress disorder 309.81 ; Attention deficit disorder of childhood without mention of hyperactivity 314.00 and Bipolar disorder, unspecified 296.80 [facility] [place] [address] [facility] [id number] [address] [place] [address] Apr, Schizoaffective disorder, ch ronic 295.72 [facility], [place] [address] [facility] [id number] [address] [place] [address] Apr, [facility], [place] [address] [id number] [address] [place] [address] Apr, Schizoaffective disorder, ch ronic 295.72 ; Posttraumatic stress disorder 309.81 and Attention deficit disorder of childhood without mention of hyperactivity 314.00 [facility] [place] [address] [facility] [id number] [address] [place] [address] Mar, Disorganized schizophrenia, 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 [facility] [place] [address] [facility] [id number] [address] [place] [address] Mar, [facility], [place] [address] [facility] [id number] [address] [place] [address] Mar, [facility], [place] [address] [facility] [id number] [address] [place] [address] Mar, [facility], [place] [address] [facility] [id number] [address] [place] [address] Mar, [facility], [place] [address] [facility] [id number] [address] [place] [address] February, Schizoaffective disorder, ch ronic 295.72 [facility], [place] [address] [facility] [id number] [address] [place] [address] February, [facility], [place] [address] [facility] [id number] [address] [place] [address] February, Attention 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 ; Posttraumatic stress disorder 309.81 and Schizoaffective disorder, chronic 295.72 [facility] [address] [id number] [address] [place] [address], [place] [address] 29 Jan, 2015 [facility] [address] [id number] [address] [place] [address], [place] [address] 14 Jan, 2015 [facility] [address] [id number] [address] [place] [address], [place] [address] Jan, [facility] [address] [id number] [address] [place] [address], [place] [address] Dec, [facility] [address] [id number] [address] [place] [address], [place] [address] Dec, [facility] [address] [id number] [address] [place] [address], [place] [address] Dec, [facility] [address] [id number] [address] [place] [address], [place] [address] Dec, [facility] [address] [id number] [address] [place] [address], [place] [address] Dec, [facility] [address] [id number] [address] [place] [address], [place] [address] Dec, [facility] [address] [id number] [address] [place] [address], [place] [address] Dec, [facility] [address] [id number] [address] [place] [address], [place] [address] Dec, [facility] [address] [id number] [address] [place] [address], [place] [address] Nov, [facility] [address] [id number] [address] [place] [address], [place] [address] Nov, [facility] [address] [id number] [address] [place] [address], [place] [address] Nov, [facility] [address] [id number] [address] [place] [address], [place] [address] Nov, [facility] [address] [id number] [address] [place] [address], [place] [address] Nov, [facility] [address] [id number] [address] [place] [address], [place] [address] Nov, [facility] [address] [id number] [address] [place] [address], [place] [address] Nov, [facility] [address] [id number] [address] [place] [address], [place] [address] Nov, [facility] [address] [id number] [address] [place] [address], [place] [address] Nov, [facility] [address] [id number] [address] [place] [address], [place] [address] Nov, [facility] [address] [id number] [address] [place] [address], [place] [address] Oct, [facility] [address] [id number] [address] [place] [address], [place] [address] Oct, [facility] [address] [id number] [address] [place] [address], [place] [address] Oct, [facility] [address] [id number] [address] [place] [address], [place] [address] Oct, [facility] [address] [id number] [address] [place] [address], [place] [address] Oct, [facility] [address] [id number] [address] [place] [address], [place] [address] Oct, [facility] [address] [id number] [address] [place] [address], [place] [address] Oct, [facility] [address] [id number] [address] [place] [address], [place] [address] Sep, [facility] [address] [id number] [address] [place] [address], [place] [address] Sep, [facility] [address] [id number] [address] [place] [address], [place] [address] Sep, [facility] [address] [id number] [address] [place] [address], [place] [address] 15 Sep, 2014 [facility] [address] [id number] [address] [place] [address], [place] [address] Aug, [facility] [address] [id number] [address] [place] [address], [place] [address] Aug, [facility] [address] [id number] [address] [place] [address], [place] [address] Aug, [facility] [address] [id number] [address] [place] [address], [place] [address] Aug, [facility] [address] [id number] [address] [place] [address], [place] [address] Aug, [facility] [address] [id number] [address] [place] [address], [place] [address] Aug, [facility] [address] [id number] [address] [place] [address], [place] [address] Jul, [facility] [address] [id number] [address] [place] [address], [place] [address] 29 Jul, 2014 [facility] [address] [id number] [address] [place] [address], [place] [address] 24 Jul, 2014 [facility] [address] [id number] [address] [place] [address], [place] [address] 24 Jul, 2014 [facility] [address] [id number] [address] [place] [address], [place] [address] 15 Jul, 2014 [facility] [address] [id number] [address] [place] [address], [place] [address] 15 Jul, 2014 [facility] [address] [id number] [address] [place] [address], [place] [address] 27 Jun, 2014 [facility] [address] [id number] [address] [place] [address], [place] [address] 27 Jun, 2014 [facility] [address] [id number] [address] [place] [address], [place] [address] Jun, 2013 [facility] [address] [id number] [facility] [place] [address] 26 Jun, 2013 [facility] [address] [id number] [facility] [place] [address] Jun, 2013 [facility] [address] [id number] [address] [place] [address], [place] [address] Jun, 2013 [facility] [address] [id number] [address] [place] [address], [place] [address] 16 Jun, 2013 [facility] [address] [id number] [address] [place] [address], [place] [address] 16 Jun, 2013 [facility] [address] [id number] [address] [place] [address], [place] [address] Jun, 2013 [facility] [address] [id number] [address] [place] [address], [place] [address] Jun, 2013 [facility] [address] [id number] [address] [place] [address], [place] [address] Jun, [facility] [address] [id number] [address] [place] [address], [place] [address] May, [facility] [address] [id number] [address] [place] [address], [place] [address] May, [facility] [address] [id number] [address] [place] [address], [place] [address] May, [facility] [address] [id number] [address] [place] [address], [place] [address] May, [facility] [address] [id number] [address] [place] [address], [place] [address] May, [facility] [address] [id number] [address] [place] [address], [place] [address] May, [facility] [address] [id number] [address] [place] [address], [place] [address] May, [facility] [address] [id number] [address] [place] [address], [place] [address] May, [facility] [address] [id number] [address] [place] [address], [place] [address] May, [facility] [address] [id number] [address] [place] [address], [place] [address] May, [facility] [address] [id number] [address] [place] [address], [place] [address] Apr, [facility] [address] [id number] [address] [place] [address], [place] [address] Apr, [facility] [address] [id number] [address] [place] [address], [place] [address] Apr, [facility] [address] [id number] [address] [place] [address], [place] [address] Apr, [facility] [address] [id number] [address] [place] [address], [place] [address] Apr, [facility] [address] [id number] [address] [place] [address], [place] [address] Apr, [facility] [address] [id number] [address] [place] [address], [place] [address] Apr, [facility] [address] [id number] [address] [place] [address], [place] [address] Apr, [facility] [address] [id number] [address] [place] [address], [place] [address] Apr, [facility] [address] [id number] [address] [place] [address], [place] [address] Apr, [facility] [address] [id number] [address] [place] [address], [place] [address] Mar, [facility] [address] [id number] [address] [place] [address], [place] [address] Mar, [facility] [address] [id number] [address] [place] [address], [place] [address] Mar, [facility] [address] [id number] [address] [place] [address], [place] [address] Mar, [facility] [address] [id number] [address] [place] [address], [place] [address] Mar, [facility] [address] [id number] [address] [place] [address], [place] [address] Mar, [facility] [address] [id number] [address] [place] [address], [place] [address] Mar, [facility] [address] [id number] [address] [place] [address], [place] [address] Mar, [facility] [address] [id number] [address] [place] [address], [place] [address] Mar, [facility] [address] [id number] [address] [place] [address], [place] [address] Mar, [facility] [address] [id number] [address] [place] [address], [place] [address] Mar, [facility] [address] [id number] [address] [place] [address], [place] [address] Mar, [facility] [address] [id number] [address] [place] [address], [place] [address] Mar, [facility] [address] [id number] [address] [place] [address], [place] [address] Mar, [facility] [address] [id number] [address] [place] [address], [place] [address] Mar, [facility] [address] [id number] [address] [place] [address], [place] [address] Mar, [facility] [address] [id number] [address] [place] [address], [place] [address] Mar, [facility] [address] [id number] [address] [place] [address], [place] [address] 09 Mar, 2014 [facility] [address] [id number] [address] [place] [address], [place] [address] Mar, [facility] [address] [id number] [facility] [address] Mar, [facility] [address] [id number] [address] [place] [address], [place] [address] February, [facility] [address] [id number] [address] [place] [address], [place] [address] February, [facility] [address] [id number] [address] [place] [address], [place] [address] February, [facility] [address] [id number] [address] [place] [address], [place] [address] February, [facility] [address] [id number] [address] [place] [address], [place] [address] February, [facility] [address] [id number] [address] [place] [address], [place] [address] February, [facility] [address] [id number] [address] [place] [address], [place] [address] February, [facility] [address] [id number] [address] [place] [address], [place] [address] February, [facility] [address] [id number] [address] [place] [address], [place] [address] February, [facility] [address] [id number] [address] [place] [address], [place] [address] February, [facility] [address] [id number] [address] [place] [address], [place] [address] February, [facility] [address] [id number] [address] [place] [address], [place] [address] February, [facility] [address] [id number] [address] [place] [address], [place] [address] February, [facility] [address] [id number] [address] [place] [address], [place] [address] February, [facility] [address] [id number] [address] [place] [address], [place] [address] February, [facility] [address] [id number] [address] [place] [address], [place] [address] February, [facility] [address] [id number] [address] [place] [address], [place] [address] February, [facility] [address] [id number] [address] [place] [address], [place] [address] February, [facility] [address] [id number] [address] [place] [address], [place] [address] February, [facility] [address] [id number] [address] [place] [address], [place] [address] February, [facility] [address] [id number] [address] [place] [address], [place] [address] February, [facility] [address] [id number] [address] [place] [address], [place] [address] Jan, [facility] [address] [id number] [address] [place] [address], [place] [address] Jan, [facility] [address] [id number] [address] [place] [address], [place] [address] Jan, [facility] [address] [id number] [address] [place] [address], [place] [address] Jan, [facility] [address] [id number] [address] [place] [address], [place] [address] Jan, [facility] [address] [id number] [address] [place] [address], [place] [address] Jan, [facility] [address] [id number] [address] [place] [address], [place] [address] Jan, [facility] [address] [id number] [address] [place] [address], [place] [address] Jan, [facility] [address] [id number] [address] [place] [address], [place] [address] Dec, [facility] [address] [id number] [facility] [place] [address] 20 Dec, 2013 [facility] [address] [id number] [facility] [place] [address] 20 Dec, 2013 [facility] [address] [id number] [facility] [address] 19 Dec, 2013 [facility] [place] [facility] [address] [id number] [address] [place] [address], [place] [address] 19 Dec, 2013 [facility] [address] [id number] [address] [place] [address], [place] [address] 15 Dec, 2013 [facility] [place] [address] [id number] [address] [place] [address], [place] [address] 15 Dec, 2013 [facility] [address] [id number] [address] [place] [address], [place] [address] 11 Dec, 2013 [facility] [place] [facility] [address] [id number] [address] [place] [address], [place] [address] 10 Dec, 2013 [facility] [place] [facility] [address] [id number] [address] [place] [address], [place] [address] 10 Dec, 2013 [facility] [place] [facility] [address] [id number] [address] [place] [address], [place] [address] 18 Nov, 2013 [facility] [place] [facility] [address] [id number] [address] [place] [address], [place] [address] 17 Nov, 2013 [facility] [place] [facility] [address] [id number] [address] [place] [address], [place] [address] Nov, [facility] [place] [address] [id number] [address] [place] [address], [place] [address] 05 Nov, 2013 [facility] [place] [facility] [address] [id number] [address] [place] [address], [place] [address] 05 Nov, 2013 [facility] [place] [facility] [address] [id number] [address] [place] [address], [place] [address] Oct, [facility] [place] [facility] [address] [id number] [address] [place] [address] Oct, [facility] [address] [id number] [address] [place] [address], [place] [address] Oct, [facility] [address] [id number] [address] [place] [address], [place] [address] Sep, [facility] [address] [id number] [address] [place] [address], [place] [address] Sep, [facility] [address] [id number] [address] [place] [address], [place] [address] Sep, [facility] [address] [id number] [address] [place] [address], [place] [address] Sep, [facility] [address] [id number] [address] [place] [address], [place] [address] Aug, [facility] [address] [id number] [address] [place] [address], [place] [address] Aug, [facility] [address] [id number] [address] [place] [address], [place] [address] Jul, [facility] [address] [id number] [address] [place] [address], [place] [address] Jul, [facility] [address] [id number] [address] [place] [address], [place] [address] Jul, [facility] [address] [id number] [address] [place] [address], [place] [address] Jul, [facility] [address] [id number] [address] [place] [address], [place] [address] Jul, [facility] [address] [id number] [address] [place] [address], [place] [address] Jun, [facility] [address] [id number] [address] [place] [address], [place] [address] Jun, [facility] [address] [id number] [address] [place] [address], [place] [address] 19 Jun, 2013 [facility] [address] [id number] [address] [place] [address], [place] [address] 18 Jun, 2013 [facility] [address] [id number] [address] [place] [address], [place] [address] 16 Jun, 2013 [facility] [address] [id number] [address] [place] [address], [place] [address] 12 Jun, 2013 [facility] [address] [id number] [address] [place] [address], [place] [address] 11 Jun, 2013 [facility] [address] [id number] [address] [place] [address], [place] [address] 30 May, 2013 [facility] [address] [id number] [address] [place] [address], [place] [address] May, [facility] [address] [id number] [address] [place] [address], [place] [address] Apr, [facility] [address] [id number] [address] [place] [address], [place] [address] Apr, [facility] [address] [id number] [address] [place] [address], [place] [address] Apr, [facility] [address] [id number] [address] [place] [address], [place] [address] Mar, [facility] [address] [id number] [address] [place] [address], [place] [address] Mar, [facility] [address] [id number] [address] [place] [address], [place] [address] February, [facility] [address] [id number] [address] [place] [address], [place] [address] February, [facility] [address] [id number] [address] [place] [address], [place] [address] February, [facility] [address] [id number] [address] [place] [address], [place] [address] February, [facility] [address] [id number] [address] [place] [address], [place] [address] 19 Jan, 2013 [facility] [address] [id number] [address] [place] [address], [place] [address] 17 Jan, 2013 [facility] [address] [id number] [address] [place] [address], [place] [address] 16 Jan, 2013 [facility] [address] [id number] [address] [place] [address], [place] [address] 29 Dec, 2012 [facility] [address] [id number] [address] [place] [address], [place] [address] Dec, [facility] [address] [id number] [address] [place] [address], [place] [address] Dec, [facility] [address] [id number] [address] [place] [address], [place] [address] 08 Dec, 2012 [facility] [address] [id number] [address] [place] [address], [place] [address] Nov, [facility] [address] [id number] [address] [place] [address], [place] [address] Nov, [facility] [address] [id number] [address] [place] [address], [place] [address] Oct, [facility] [address] [id number] [address] [place] [address], [place] [address] Oct, [facility] [address] [id number] [address] [place] [address], [place] [address] Oct, [facility] [address] [id number] [address] [place] [address], [place] [address] Oct, [facility] [address] [id number] [address] [place] [address], [place] [address] Aug, [facility] [address] [id number] [address] [place] [address], [place] [address] Aug, [facility] [address] [id number] [address] [place] [address], [place] [address] 18 Jun, 2012 [facility] [address] [id number] [facility] [place] [address] May, [facility] [address] [id number] [address] [place] [address], [place] [address] May, [facility] [address] [id number] [address] [place] [address], [place] [address] Apr, [facility] [address] [id number] [address] [place] [address], [place] [address] Apr, [facility] [address] [id number] [address] [place] [address], [place] [address] Apr, [facility] [address] [id number] [address] [place] [address], [place] [address] Mar, [facility] [address] [id number] [address] [place] [address], [place] [address] Mar, [facility] [address] [id number] [address] [place] [address], [place] [address] Mar, [facility] [address] [id number] [address] [place] [address], [place] [address] Mar, [facility] [address] [id number] [address] [place] [address], [place] [address] Mar, [facility] [address] [id number] [address] [place] [address], [place] [address] February, [facility] [address] [id number] [address] [place] [address], [place] [address] February, [facility] [address] [id number] [address] [place] [address], [place] [address] February, [facility] [address] [id number] [address] [place] [address], [place] [address] February, [facility] [address] [id number] [address] [place] [address], [place] [address] February, [facility] [address] [id number] [address] [place] [address], [place] [address] February, [facility] [address] [id number] [address] [place] [address], [place] [address] February, [facility] [address] [id number] [address] [place] [address], [place] [address] Jan, [facility] [address] [id number] [address] [place] [address], [place] [address] Jan, [facility] [address] [id number] [address] [place] [address], [place] [address] 17 Jan, 2012 [facility] [address] [id number] [address] [place] [address], [place] [address] Jan, [facility] [address] [id number] [address] [place] [address], [place] [address] Jan, [facility] [address] [id number] [address] [place] [address], [place] [address] Jan, [facility] [address] [id number] [address] [place] [address], [place] [address] 30 Dec, 2011 [facility] [address] [id number] [address] [place] [address], [place] [address] 24 Dec, 2011 [facility] [address] [id number] [address] [place] [address], [place] [address] Dec, [facility] [address] [id number] [address] [place] [address], [place] [address] Dec, [facility] [address] [id number] [address] [place] [address], [place] [address] Dec, [facility] [address] [id number] [address] [place] [address], [place] [address] Nov, [facility] [address] [id number] [address] [place] [address], [place] [address] Nov, [facility] [address] [id number] [address] [place] [address], [place] [address] Nov, [facility] [address] [id number] [address] [place] [address], [place] [address] 14 Nov, 2011 [facility] [address] [id number] [address] [place] [address], [place] [address] 10 Nov, 2011 [facility] [address] [id number] [address] [place] [address], [place] [address] Nov, [facility] [address] [id number] [address] [place] [address], [place] [address] Oct, [facility] [address] [id number] [address] [place] [address], [place] [address] Oct, [facility] [address] [id number] [address] [place] [address], [place] [address] Oct, [facility] [address] [id number] [address] [place] [address], [place] [address] Oct, [facility] [address] [id number] [address] [place] [address], [place] [address] Oct, [facility] [address] [id number] [address] [place] [address], [place] [address] Sep, [facility] [address] [id number] [address] [place] [address], [place] [address] Sep, [facility] [address] [id number] [address] [place] [address], [place] [address] Sep, [facility] [address] [id number] [address] [place] [address], [place] [address] 14 Sep, 2011 [facility] [address] [id number] [address] [place] [address], [place] [address] 14 Sep, 2011 [facility] [address] [id number] [address] [place] [address], [place] [address] 13 Sep, 2011 [facility] [address] [id number] [address] [place] [address], [place] [address] 12 Sep, 2011 [facility] [address] [id number] [address] [place] [address], [place] [address] Sep, [facility] [address] [id number] [address] [place] [address], [place] [address] Sep, [facility] [address] [id number] [address] [place] [address], [place] [address] Aug, [facility] [address] [id number] [address] [place] [address], [place] [address] Aug, [facility] [address] [id number] [address] [place] [address], [place] [address] Aug, [facility] [address] [id number] [address] [place] [address], [place] [address] Aug, [facility] [address] [id number] [address] [place] [address], [place] [address] Aug, [facility] [address] [id number] [address] [place] [address], [place] [address] Aug, [facility] [address] [id number] [address] [place] [address], [place] [address] Aug, [facility] [address] [id number] [address] [place] [address], [place] [address] Aug, [facility] [address] [id number] [address] [place] [address], [place] [address] Aug, [facility] [address] [id number] [address] [place] [address], [place] [address] Aug, [facility] [address] [id number] [address] [place] [address], [place] [address] Aug, [facility] [address] [id number] [address] [place] [address], [place] [address] Aug, [facility] [address] [id number] [address] [place] [address], [place] [address] Jul, [facility] [address] [id number] [address] [place] [address], [place] [address] Jul, [facility] [address] [id number] [address] [place] [address] Jul, [facility] [place] [address] [id number] [address] [place] [address] Jul, [facility] [place] [address] [id number] [address] [place] [address] Jul, [facility] [place] [address] [id number] [address] [place] [address] Jul, [facility] [place] [address] [id number] [address] [place] [address] Jul, [facility] [place] [address] [id number] [address] [place] [address] Jul, [facility] [place] [address] [id number] [address] [place] [address] Jul, [facility] [place] [address] [id number] [address] [place] [address] Jul, [facility] [place] [address] [id number] [address] [place] [address] Nov, [facility] [place] [address] [id number] [address] [place] [address] Aug, [facility] [place] [address] [id number] [address] [place] [address] Aug, [facility] [place] [address] [id number] [address] [place] [address] Aug, [facility] [place] [address] [id number] [address] [place] [address] Aug, [facility] [place] [address] [id number] [address] [place] [address] Jul, IMMUNIZATIONS No Known Immunizations SOCIAL HISTORY Never Assessed REASON FOR VISIT EMR-[facility] PLAN OF CARE [...] Suicide attempt by hanging 2015 Hospitalization History [facility] 01/30/2018-02/10/20 08 [facility]ization History [facility] 05/04/18-
--- OUTSIDE RECORDS SUMMARY | 2020-04-04 02:33 | XMS REPORT ---
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 Active 94823191 Problem Generalized anxiety disorder 300.02 A ctive 35737042 Problem Obsessive-compulsive disorders 300.3 Active 589508930 Problem Catatonic schizophrenia, 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 013544221 Problem Disorganized schizophrenia, 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 81237364 Problem Paranoid schizophrenia F20.0 Active 91837107 Problem Borderline personality disorder F60.3 Active 22197513 Problem Paranoid schizophrenia, unspecified condition 295.30 Active 49529500 Problem Schizoaffective disorder, depressive type F25.1 Active 49919624 Problem Bipolar disorder, unspecified 296.80 Active 68126762 Problem Schizoaffective disorder, unspecified F25.9 Active 99723069 Problem Attention deficit hyperactivity disorder (ADHD), inattentive type, 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 64467258 Problem Posttraumatic stress disorder F43.10 Active 38699693 Problem High risk medication use Z79.899 Activ e [id number] ALLERGIES No Information ENCOUNTERS Encounter Location Date Diagnosis [facility] [address] [facility] [id number] [address] [place] [phone] Jan, [facility] [address] [facility] [id number] [address] [place] [phone] Dec, Paranoid schizophrenia F20.0 ; Posttraumatic stress disorder F43.10 ; Attention deficit hyperactivity disorder (ADHD), inattentive type, 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 and Borderline personality disorder F60.3 [facility] [address] [facility] [id number] [address] [place] [phone] Dec, Paranoid schizophrenia F20.0 ; Posttraumatic stress disorder F43.10 ; Attention deficit hyperactivity disorder (ADHD), inattentive type, 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 and Borderline personality disorder F60.3 [facility] [address] [place] [id number] [address] [place] [phone] Oct, Paranoid schizophrenia F20.0 ; Posttraumatic stress disorder F43.10 ; Attention deficit hyperactivity disorder (ADHD), inattentive type, 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 and Borderline personality disorder F60.3 [facility] [address] [place] [id number] [address] [place] [phone] Oct, Paranoid schizophrenia F20.0 ; Posttraumatic stress disorder F43.10 ; Attention deficit hyperactivity disorder (ADHD), inattentive type, 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 and Borderline personality disorder F60.3 [facility] [address] [place] [id number] [address] [place] [phone] Aug, [facility] [address] [place] [id number] [place] [phone] Aug, Paranoid schizophrenia F20.0 ; Posttraumatic stress disorder F43.10 ; Attention deficit hyperactivity disorder (ADHD), inattentive type, 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0 [facility] [address] [facility] [id number] [address] [place] [phone] May, Paranoid schizophrenia F20.0 ; Posttraumatic stress disorder F43.10 ; Attention deficit hyperactivity disorder (ADHD), inattentive type, 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 and Borderline personality disorder F60.3 [facility] [address] [facility] [id number] [address] [place] [phone] May, [facility] [address] [id number] [address] [address] May, Paranoid schizophrenia F20.0 [facility] [address] [id number] [address] [place] [address], [place] [address] May, Paranoid schizophrenia F20.0 ; Posttraumatic stress disorder F43.10 ; Attention deficit hyperactivity disorder (ADHD), inattentive type, 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 and Borderline personality disorder F60.3 [facility] [address] [id number] [facility] [place] [address] Apr, [facility] [address] [id number] [address] [place] [address], [place] [address] Apr, Paranoid schizophrenia F20.0 ; Posttraumatic stress disorder F43.10 ; Attention deficit hyperactivity disorder (ADHD), inattentive type, 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 and Borderline personality disorder F60.3 [facility] [address] [id number] [address] [place] [phone] Apr, [facility] [address] [id number] [address] [place] [phone] Apr, Schizoaffective disorder, de pressive type F25.1 and Borderline personality disorder F60.3 [facility] [address] [id number] [address] [place] [phone] Apr, Paranoid schizophrenia F20.0 ; Posttraumatic stress disorder F43.10 ; Attention deficit hyperactivity disorder (ADHD), inattentive type, 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 and Borderline personality disorder F60.3 [facility] [address] [id number] [address] [place] [phone] Apr, [facility] [address] [id number] [address] [place] [phone] Apr, Paranoid schizophrenia F20.0 ; Posttraumatic stress disorder F43.10 ; Attention deficit hyperactivity disorder (ADHD), inattentive type, 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 and Borderline personality disorder F60.3 [facility] [address] [id number] [address] [place] [phone] Apr, [facility] [address] [id number] [address] [place] [phone] Mar, Paranoid schizophrenia F20.0 [facility] [address] [id number] [address] [place] [phone] Mar, [facility] [address] [id number] [address] [place] [phone] Mar, Paranoid schizophrenia F20.0 ; Posttraumatic stress disorder F43.10 ; Attention deficit hyperactivity disorder (ADHD), inattentive type, 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 and Borderline personality disorder F60.3 [facility] [address] [id number] [address] [place] [phone] February, Paranoid schizophrenia F20.0 [facility] [address] [id number] [address] [place] [phone] February, Paranoid schizophrenia F20.0 ; Posttraumatic stress disorder F43.10 ; Attention deficit hyperactivity disorder (ADHD), inattentive type, 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 and Borderline personality disorder F60.3 [facility] [address] [id number] [address] [place] [phone] February, Paranoid schizophrenia F20.0 ; Posttraumatic stress disorder F43.10 ; Attention deficit hyperactivity disorder (ADHD), inattentive type, 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 and Borderline personality disorder F60.3 [facility] [address] [id number] [address] [place] [phone] February, [facility] [address] [id number] [address] [place] [phone] February, Paranoid schizophrenia F20.0 [facility] [address] [id number] [address] [place] [phone] February, Paranoid schizophrenia F20.0 [facility] [address] [id number] [address] [place] [phone] February, Paranoid schizophrenia F20.0 ; Posttraumatic stress disorder F43.10 ; Attention deficit hyperactivity disorder (ADHD), inattentive type, 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 and Borderline personality disorder F60.3 [facility] [address] [id number] [address] [place] [phone] Jan, Paranoid schizophrenia F20.0 ; Posttraumatic stress disorder F43.10 ; Attention deficit hyperactivity disorder (ADHD), inattentive type, 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 and Borderline personality disorder F60.3 [facility] [address] [id number] [address] [place] [phone] Jan, Paranoid schizophrenia F20.0 [facility] [address] [id number] [address] [place] [phone] Jan, Paranoid schizophrenia F20.0 [facility] [address] [facility] [id number] [address] [place] [phone] Jan, Paranoid schizophrenia F20.0 ; Posttraumatic stress disorder F43.10 ; Attention deficit hyperactivity disorder (ADHD), inattentive type, 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 and Borderline personality disorder F60.3 [facility] [address] [id number] [address] [place] [phone] Dec, [facility] [address] [id number] [address] [place] [phone] Nov, Paranoid schizophrenia F20.0 ; Posttraumatic stress disorder F43.10 ; Attention deficit hyperactivity disorder (ADHD), inattentive type, 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 and Borderline personality disorder F60.3 [facility] [address] [id number] [address] [place] [phone] Nov, [facility] [address] [id number] [address] [place] [phone] Oct, Paranoid schizophrenia F20.0 [facility] [address] [facility] [id number] [address] [place] [phone] Oct, Paranoid schizophrenia F20.0 ; Posttraumatic stress disorder F43.10 ; Attention deficit hyperactivity disorder (ADHD), inattentive type, 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 ; Borderline personality disorder F60.3 and Other usp (current) drug therapy Z79.899 [facility] [address] [id number] [address] [place] [phone] Oct, [facility] [address] [facility] [id number] [address] [place] [phone] Oct, [facility] [address] [id number] [address] [place] [phone] Sep, [facility] [address] [id number] [address] [place] [id number] Sep, Paranoid schizophrenia F20.0 ; Posttraumatic stress disorder F43.10 ; Attention deficit hyperactivity disorder (ADHD), inattentive type, 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 and Borderline personality disorder F60.3 [facility] [address] [facility] [id number] [address] [place] [phone] Sep, Paranoid schizophrenia F20.0 [facility] [address] [id number] [address] [place] [phone] Aug, Paranoid schizophrenia F20.0 ; Posttraumatic stress disorder F43.10 ; Attention deficit hyperactivity disorder (ADHD), inattentive type, 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 and Borderline personality disorder F60.3 [facility] [address] [facility] [id number] [address] [place] [phone] Aug, Paranoid schizophrenia F20.0 ; Posttraumatic stress disorder F43.10 ; Attention deficit hyperactivity disorder (ADHD), inattentive type, 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 and Borderline personality disorder F60.3 [facility] [address] [id number] [address] [place] [phone] Aug, [facility] [address] [facility] [id number] [address] [place] [phone] Jul, Paranoid schizophrenia F20.0 ; Posttraumatic stress disorder F43.10 ; Attention deficit hyperactivity disorder (ADHD), inattentive type, 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 and Borderline personality disorder F60.3 [facility] [address] [id number] [address] [place] [phone] Jul, Paranoid schizophrenia F20.0 [facility] [address] [id number] [address] [place] [phone] Jul, Paranoid schizophrenia F20.0 ; Posttraumatic stress disorder F43.10 ; Attention deficit hyperactivity disorder (ADHD), inattentive type, 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 and Borderline personality disorder F60.3 [facility] [address] [id number] [address] [place] [phone] Jun, Paranoid schizophrenia F20.0 ; Posttraumatic stress disorder F43.10 ; Attention deficit hyperactivity disorder (ADHD), inattentive type, 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 and Borderline personality disorder F60.3 [facility] [address] [id number] [address] [place] [phone] May, Other usp (current) dr ug therapy Z79.899 [facility] [address] [id number] [address] [place] [id number] May, [facility] [address] [id number] [address] [place] [phone] May, [facility] [address] [facility] [id number] [address] [place] [phone] May, Attention deficit hyperactiv ity disorder (ADHD), inattentive type, mild F90.0 [facility] [address] [facility] [id number] [address] [place] [phone] May, [facility] [address] [id number] [address] [place] [phone] May, Attention deficit hyperactiv ity disorder (ADHD), inattentive type, mild F90.0 [facility] [address] [id number] [address] [place] [phone] May, Paranoid schizophrenia F20.0 ; Posttraumatic stress disorder F43.10 ; Attention deficit hyperactivity disorder (ADHD), inattentive type, 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 and Other usp (current) drug therapy Z79.899 [facility] [address] [id number] [address] [place] [phone] Apr, Paranoid schizophrenia F20.0 [facility] [address] [id number] [address] [place] [phone] Apr, Paranoid schizophrenia F20.0 ; Posttraumatic stress disorder F43.10 and Attention deficit hyperactivity disorder (ADHD), inattentive type, 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 [facility] [address] [id number] [address] [place] [phone] February, [facility] [address] [id number] [address] [place] [phone] February, Paranoid schizophrenia F20.0 ; Posttraumatic stress disorder F43.10 and Attention deficit hyperactivity disorder (ADHD), inattentive type, 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 [facility] [address] [id number] [address] [place] [phone] February, Paranoid schizophrenia F20.0 ; Posttraumatic stress disorder F43.10 and Attention deficit hyperactivity disorder (ADHD), inattentive type, 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 [facility] [address] [id number] [address] [place] [phone] Jan, Paranoid schizophrenia F20.0 ; Posttraumatic stress disorder F43.10 and Attention deficit hyperactivity disorder (ADHD), inattentive type, 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 [facility] [address] [id number] [address] [place] [id number] Dec, Dental examination Z01.20 [facility] [address] [id number] [address] [place] [address] [id number] Nov, Dental examination Z01.20 [facility] [address] [id number] [address] [place] [id number] Nov, Dental examination Z01.20 [facility] [address] [id number] [address] [place] [address] [id number] Nov, Dental caries K02.9 [facility] [address] [id number] [address] [place] [phone] Nov, High risk medication use Z79 .899 [facility] [address] [id number] [address] [place] [phone] Nov, Paranoid schizophrenia F20.0 ; Posttraumatic stress disorder F43.10 ; Attention deficit hyperactivity disorder (ADHD), inattentive type, 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 and Borderline personality disorder in adult F60.3 [facility] [address] [id number] [address] [place] [address] [id number] Oct, Dental caries K02.9 [facility] [address] [id number] [address] [place] [phone] Sep, Paranoid schizophrenia F20.0 ; Posttraumatic stress disorder F43.10 and Attention deficit hyperactivity disorder (ADHD), inattentive type, 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 [facility] [address] [id number] [address] [place] [phone] Aug, Paranoid schizophrenia F20.0 ; Posttraumatic stress disorder F43.10 and Attention deficit hyperactivity disorder (ADHD), inattentive type, 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 [facility] [address] [id number] [address] [place] [phone] Aug, Strep throat J02.0 and Cough R05 [facility] [address] [id number] [address] [place] [phone] Aug, [facility] [address] [id number] [address] [place] [id number] 24 Jul, 2016 Paranoid schizophrenia F20.0 ; Posttraumatic stress disorder F43.10 and Attention deficit hyperactivity disorder (ADHD), inattentive type, 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 [facility] [address] [id number] [address] [place] [phone] Jul, [facility] [address] [id number] [address] [place] [phone] Jun, Paranoid schizophrenia F20.0 ; Posttraumatic stress disorder F43.10 and Attention deficit hyperactivity disorder (ADHD), inattentive type, 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 [facility] [address] [id number] [address] [place] [address] [id number] Jun, Dental examination Z01.20 [facility] [address] [id number] [address] [place] [phone] Jun, [facility] [address] [id number] [address] [place] [phone] May, Paranoid schizophrenia F20.0 [facility] [address] [id number] [address] [place] [phone] May, Paranoid schizophrenia F20.0 ; Posttraumatic stress disorder F43.10 and Attention deficit hyperactivity disorder (ADHD), inattentive type, 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 [facility] [address] [id number] [address] [place] [phone] May, [facility] [address] [id number] [address] [place] [phone] May, Paranoid schizophrenia F20.0 [facility] [address] [id number] [address] [place] [phone] May, [facility] [address] [id number] [address] [place] [phone] May, Paranoid schizophrenia F20.0 [facility] [address] [id number] [address] [place] [phone] May, Schizoaffective disorder, un specified F25.9 [facility] [address] [id number] [address] [place] [id number] May, Schizoaffective disorder, un specified F25.9 [facility] [address] [id number] [address] [place] [phone] May, [facility] [address] [id number] [address] [place] [phone] May, Paranoid schizophrenia F20.0 [facility] [address] [id number] [address] [place] [phone] May, Paranoid schizophrenia F20.0 ; Posttraumatic stress disorder F43.10 and Attention deficit hyperactivity disorder (ADHD), inattentive type, 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 [facility] [address] [id number] [address] [place] [address], [place] [phone] Mar, Paranoid schizophrenia F20.0 [facility] [address] [id number] [address] [place] [address], [place] [address] Mar, Paranoid schizophrenia F20.0 ; Attention deficit hyperactivity disorder (ADHD), inattentive type, 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 [address] [id number] [address] [place] [address], [place] [address] February, [facility] [address] [id number] [address] [place] [id number] February, [facility] [address] [id number] [address] [place] [address], [place] [address] February, [facility] [address] [id number] [address] [place] [phone] February, [facility] [address] [id number] [address] [place] [address], [place] [address] Jan, Paranoid schizophrenia F20.0 [facility] [address] [id number] [address] [place] [id number] Jan, Dental examination Z01.20 [facility] [address] [id number] [address] [place] [id number] Jan, Dental caries K02.9 [facility] [address] [id number] [address] [place] [id number] Jan, Dental examination Z01.20 [facility] [address] [id number] [address] [place] [id number] Dec, Encounter for dental examina tion Z01.20 [facility] [address] [id number] [address] [place] [phone] Dec, Paranoid schizophrenia F20.0 [facility] [address] [id number] [address] [place] [id number] Dec, Dental examination Z01.20 [facility] [address] [id number] [address] [place] [phone] Dec, [facility] [address] [id number] [address] [place] [address] Dec, Paranoid schizophrenia F20.0 ; Posttraumatic stress disorder F43.10 and Attention deficit hyperactivity disorder (ADHD), inattentive type, 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 [facility] [address] [id number] [address] [place] [address] Nov, Schizoaffective disorder, un specified F25.9 [facility] [address] [id number] [address] [place] [address] Oct, Paranoid schizophrenia F20.0 [facility] [address] [id number] [address] [place] [address] Oct, [facility] [address] [id number] [address] [place] [address] Sep, Paranoid schizophrenia F20.0 ; Posttraumatic stress disorder F43.10 and Attention deficit hyperactivity disorder (ADHD), inattentive type, 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 [facility] [address] [id number] [address] [place] [address] Sep, [facility] [address] [facility] [id number] [address] [place], [place] [address] Sep, Paranoid schizophrenia F20.0 ; Posttraumatic stress disorder F43.10 and Attention deficit hyperactivity disorder (ADHD), inattentive type, 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 [facility] [address] [facility] [id number] [address] [place] [address] Aug, Paranoid schizophrenia F20.0 [facility] [address] [facility] [id number] [address] [place] [address] Aug, [facility] [address] [facility] [id number] [address] [place] [address] Aug, Posttraumatic stress disorde r F43.10 ; Paranoid schizophrenia F20.0 and Attention deficit hyperactivity disorder (ADHD), inattentive type, 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 [facility] [address] [facility] [id number] [address] [place] [address] Jul, Bipolar disorder, unspecifie d F31.9 [facility] [address] [facility] [id number] [address] [place] [address] Jul, [facility] [address] [facility] [id number] [address] [place] [address] Jun, [facility] [address] [facility] [id number] [address] [place] [address] Jun, Schizoaffective disorder, ch ronic 295.72 ; Posttraumatic stress disorder 309.81 and Attention deficit disorder of childhood without mention of hyperactivity 314.00 [facility] [address] [facility] [id number] [address] [place] [address] May, [facility] [address] [facility] [id number] [address] [place] [address] May, [facility] [address] [facility] [id number] [address] [place] [address] May, Schizoaffective disorder, ch ronic 295.72 ; Posttraumatic stress disorder 309.81 ; Attention deficit disorder of childhood without mention of hyperactivity 314.00 and Bipolar disorder, unspecified 296.80 [facility] [address] [facility] [id number] [address] [place] [id number] Apr, Schizoaffective disorder, ch ronic 295.72 [facility] [address] [facility] [id number] [address] [place] [address] Apr, [facility] [address] [id number] [address] [place] [address] Apr, Schizoaffective disorder, ch ronic 295.72 ; Posttraumatic stress disorder 309.81 and Attention deficit disorder of childhood without mention of hyperactivity 314.00 [facility] [address] [facility] [id number] [address] [place] [address] Mar, Disorganized schizophrenia, 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 [facility] [address] [facility] [id number] [address] [place] [address] Mar, [facility] [address] [facility] [id number] [address] [place] [id number] Mar, [facility] [address] [facility] [id number] [address] [place] [address] Mar, [facility] [address] [facility] [id number] [address] [place] [phone] Mar, [facility] [address] [facility] [id number] [address] [place] [address] February, Schizoaffective disorder, ch ronic 295.72 [facility] [address] [facility] [id number] [address] [place] [address] February, [facility] [address] [facility] [id number] [address] [place] [address] February, Attention 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 ; Posttraumatic stress disorder 309.81 and Schizoaffective disorder, chronic 295.72 [facility] [address] [id number] [address] [place] [address], [place] [address] 29 Jan, 2015 [facility] [address] [id number] [address] [place] [address], [place] [address] 14 Jan, 2015 [facility] [address] [id number] [address] [place] [address], [place] [address] Jan, [facility] [address] [id number] [address] [place] [address], [place] [address] Dec, [facility] [address] [id number] [address] [place] [address], [place] [address] Dec, [facility] [address] [id number] [address] [place] [address], [place] [address] Dec, [facility] [address] [id number] [address] [place] [address], [place] [address] Dec, [facility] [address] [id number] [address] [place] [address], [place] [address] Dec, [facility] [address] [id number] [address] [place] [address], [place] [address] Dec, [facility] [address] [id number] [address] [place] [address], [place] [address] Dec, [facility] [address] [id number] [address] [place] [address], [place] [address] Dec, [facility] [address] [id number] [address] [place] [address], [place] [address] Nov, [facility] [address] [id number] [address] [place] [address], [place] [address] Nov, [facility] [address] [id number] [address] [place] [address], [place] [address] Nov, [facility] [address] [id number] [address] [place] [address], [place] [address] Nov, [facility] [address] [id number] [address] [place] [address], [place] [address] Nov, [facility] [address] [id number] [address] [place] [address], [place] [address] Nov, [facility] [address] [id number] [address] [place] [address], [place] [address] Nov, [facility] [address] [id number] [address] [place] [address], [place] [address] Nov, [facility] [address] [id number] [address] [place] [address], [place] [address] Nov, [facility] [address] [id number] [address] [place] [address], [place] [address] Nov, [facility] [address] [id number] [address] [place] [address], [place] [address] Oct, [facility] [address] [id number] [address] [place] [address], [place] [address] Oct, [facility] [address] [id number] [address] [place] [address], [place] [address] Oct, [facility] [address] [id number] [address] [place] [address], [place] [address] Oct, [facility] [address] [id number] [address] [place] [address], [place] [address] Oct, [facility] [address] [id number] [address] [place] [address], [place] [address] Oct, [facility] [address] [id number] [address] [place] [address], [place] [address] Oct, [facility] [address] [id number] [address] [place] [address], [place] [address] Sep, [facility] [address] [id number] [address] [place] [address], [place] [address] Sep, [facility] [address] [id number] [address] [place] [address], [place] [address] Sep, [facility] [address] [id number] [address] [place] [address], [place] [address] 15 Sep, 2014 [facility] [address] [id number] [address] [place] [address], [place] [address] Aug, [facility] [address] [id number] [address] [place] [address], [place] [address] Aug, [facility] [address] [id number] [address] [place] [address], [place] [address] Aug, [facility] [address] [id number] [address] [place] [address], [place] [address] Aug, [facility] [address] [id number] [address] [place] [address], [place] [address] Aug, [facility] [address] [id number] [address] [place] [address], [place] [address] Aug, [facility] [address] [id number] [address] [place] [address], [place] [address] Jul, [facility] [address] [id number] [address] [place] [address], [place] [address] 29 Jul, 2014 [facility] [address] [id number] [address] [place] [address], [place] [address] 24 Jul, 2014 [facility] [address] [id number] [address] [place] [address], [place] [address] 24 Jul, 2014 [facility] [address] [id number] [address] [place] [address], [place] [address] 15 Jul, 2014 [facility] [address] [id number] [address] [place] [address], [place] [address] 15 Jul, 2014 [facility] [address] [id number] [address] [place] [address], [place] [address] 27 Jun, 2014 [facility] [address] [id number] [address] [place] [address], [place] [address] 27 Jun, 2014 [facility] [address] [id number] [address] [place] [address], [place] [address] Jun, 2013 [facility] [address] [id number] [facility] [place] [address] 26 Jun, 2013 [facility] [address] [id number] [facility] [place] [address] Jun, 2013 [facility] [address] [id number] [address] [place] [address], [place] [address] Jun, 2013 [facility] [address] [id number] [address] [place] [address], [place] [address] 16 Jun, 2013 [facility] [address] [id number] [address] [place] [address], [place] [address] 16 Jun, 2013 [facility] [address] [id number] [address] [place] [address], [place] [address] Jun, 2013 [facility] [address] [id number] [address] [place] [address], [place] [address] Jun, 2013 [facility] [address] [id number] [address] [place] [address], [place] [address] Jun, [facility] [address] [id number] [address] [place] [address], [place] [address] May, [facility] [address] [id number] [address] [place] [address], [place] [address] May, [facility] [address] [id number] [address] [place] [address], [place] [address] May, [facility] [address] [id number] [address] [place] [address], [place] [address] May, [facility] [address] [id number] [address] [place] [address], [place] [address] May, [facility] [address] [id number] [address] [place] [address], [place] [address] May, [facility] [address] [id number] [address] [place] [address], [place] [address] May, [facility] [address] [id number] [address] [place] [address], [place] [address] May, [facility] [address] [id number] [address] [place] [address], [place] [address] May, [facility] [address] [id number] [address] [place] [address], [place] [address] May, [facility] [address] [id number] [address] [place] [address], [place] [address] Apr, [facility] [address] [id number] [address] [place] [address], [place] [address] Apr, [facility] [address] [id number] [address] [place] [address], [place] [address] Apr, [facility] [address] [id number] [address] [place] [address], [place] [address] Apr, [facility] [address] [id number] [address] [place] [address], [place] [address] Apr, [facility] [address] [id number] [address] [place] [address], [place] [address] Apr, [facility] [address] [id number] [address] [place] [address], [place] [address] Apr, [facility] [address] [id number] [address] [place] [address], [place] [address] Apr, [facility] [address] [id number] [address] [place] [address], [place] [address] Apr, [facility] [address] [id number] [address] [place] [address], [place] [address] Apr, [facility] [address] [id number] [address] [place] [address], [place] [address] Mar, [facility] [address] [id number] [address] [place] [address], [place] [address] Mar, [facility] [address] [id number] [address] [place] [address], [place] [address] Mar, [facility] [address] [id number] [address] [place] [address], [place] [address] Mar, [facility] [address] [id number] [address] [place] [address], [place] [address] Mar, [facility] [address] [id number] [address] [place] [address], [place] [address] Mar, [facility] [address] [id number] [address] [place] [address], [place] [address] Mar, [facility] [address] [id number] [address] [place] [address], [place] [address] Mar, [facility] [address] [id number] [address] [place] [address], [place] [address] Mar, [facility] [address] [id number] [address] [place] [address], [place] [address] Mar, [facility] [address] [id number] [address] [place] [address], [place] [address] Mar, [facility] [address] [id number] [address] [place] [address], [place] [address] Mar, [facility] [address] [id number] [address] [place] [address], [place] [address] Mar, [facility] [address] [id number] [address] [place] [address], [place] [address] Mar, [facility] [address] [id number] [address] [place] [address], [place] [address] Mar, [facility] [address] [id number] [address] [place] [address], [place] [address] Mar, [facility] [address] [id number] [address] [place] [address], [place] [address] Mar, [facility] [address] [id number] [address] [place] [address], [place] [address] 09 Mar, 2014 [facility] [address] [id number] [address] [place] [address], [place] [address] Mar, [facility] [address] [id number] [facility] [place] [address] Mar, [facility] [address] [id number] [address] [place] [address], [place] [address] February, [facility] [address] [id number] [address] [place] [address], [place] [address] February, [facility] [address] [id number] [address] [place] [address], [place] [address] February, [facility] [address] [id number] [address] [place] [address], [place] [address] February, [facility] [address] [id number] [address] [place] [address], [place] [address] February, [facility] [address] [id number] [address] [place] [address], [place] [address] February, [facility] [address] [id number] [address] [place] [address], [place] [address] February, [facility] [address] [id number] [address] [place] [address], [place] [address] February, [facility] [address] [id number] [address] [place] [address], [place] [address] February, [facility] [address] [id number] [address] [place] [address], [place] [address] February, [facility] [address] [id number] [address] [place] [address], [place] [address] February, [facility] [address] [id number] [address] [place] [address], [place] [address] February, [facility] [address] [id number] [address] [place] [address], [place] [address] February, [facility] [address] [id number] [address] [place] [address], [place] [address] February, [facility] [address] [id number] [address] [place] [address], [place] [address] February, [facility] [address] [id number] [address] [place] [address], [place] [address] February, [facility] [address] [id number] [address] [place] [address], [place] [address] February, [facility] [address] [id number] [address] [place] [address], [place] [address] February, [facility] [address] [id number] [address] [place] [address], [place] [address] February, [facility] [address] [id number] [address] [place] [address], [place] [address] February, [facility] [address] [id number] [address] [place] [address], [place] [address] February, [facility] [address] [id number] [address] [place] [address], [place] [address] Jan, [facility] [address] [id number] [address] [place] [address], [place] [address] Jan, [facility] [address] [id number] [address] [place] [address], [place] [address] Jan, [facility] [address] [id number] [address] [place] [address], [place] [address] Jan, [facility] [address] [id number] [address] [place] [address], [place] [address] Jan, [facility] [address] [id number] [address] [place] [address], [place] [address] Jan, [facility] [address] [id number] [address] [place] [address], [place] [address] Jan, [facility] [address] [id number] [address] [place] [address], [place] [address] Jan, [facility] [address] [id number] [address] [place] [address], [place] [address] Dec, [facility] [address] [id number] [facility] [place] [address] 20 Dec, 2013 [facility] [address] [id number] [facility] [place] [address] 20 Dec, 2013 [facility] [address] [id number] [facility] [place] [address] 19 Dec, 2013 [facility] [place] [facility] [address] [id number] [address] [place] [address], [place] [address] 19 Dec, 2013 [facility] [address] [id number] [address] [place] [address], [place] [address] 15 Dec, 2013 [facility] [place] [address] [id number] [address] [place] [address], [place] [address] 15 Dec, 2013 [facility] [address] [id number] [address] [place] [address], [place] [address] 11 Dec, 2013 [facility] [place] [facility] [address] [id number] [address] [place] [address], [place] [address] 10 Dec, 2013 [facility] [place] [facility] [address] [id number] [address] [place] [address], [place] [address] 10 Dec, 2013 [facility] [place] [facility] [address] [id number] [address] [place] [address], [place] [address] 18 Nov, 2013 [facility] [place] [facility] [address] [id number] [address] [place] [address], [place] [address] 17 Nov, 2013 [facility] [place] [facility] [address] [id number] [address] [place] [address], [place] [address] Nov, [facility] [place] [facility] [address] [id number] [address] [place] [address], [place] [address] 05 Nov, 2013 [facility] [place] [facility] [address] [id number] [address] [place] [address], [place] [address] 05 Nov, 2013 [facility] [place] [facility] [address] [id number] [address] [place] [address], [place] [address] Oct, [facility] [place] [facility] [address] [id number] [address] [place] [address] Oct, [facility] [address] [id number] [address] [place] [address], [place] [address] Oct, [facility] [address] [id number] [address] [place] [address], [place] [address] Sep, [facility] [address] [id number] [address] [place] [address], [place] [address] Sep, [facility] [address] [id number] [address] [place] [address], [place] [address] Sep, [facility] [address] [id number] [address] [place] [address], [place] [address] Sep, [facility] [address] [id number] [address] [place] [address], [place] [address] Aug, [facility] [address] [id number] [address] [place] [address], [place] [address] Aug, [facility] [address] [id number] [address] [place] [address], [place] [address] Jul, [facility] [address] [id number] [address] [place] [address], [place] [address] Jul, [facility] [address] [id number] [address] [place] [address], [place] [address] Jul, [facility] [address] [id number] [address] [place] [address], [place] [address] Jul, [facility] [address] [id number] [address] [place] [address], [place] [address] Jul, [facility] [address] [id number] [address] [place] [address], [place] [address] Jun, [facility] [address] [id number] [address] [place] [address], [place] [address] Jun, [facility] [address] [id number] [address] [place] [address], [place] [address] 19 Jun, 2013 [facility] [place] [address] [id number] [address] [place] [address], [place] [address] 18 Jun, 2013 [facility] [address] [id number] [address] [place] [address], [place] [address] 16 Jun, 2013 [facility] [address] [id number] [address] [place] [address], [place] [address] 12 Jun, 2013 [facility] [address] [id number] [address] [place] [address], [place] [address] 11 Jun, 2013 [facility] [address] [id number] [address] [place] [address], [place] [address] 30 May, 2013 [facility] [address] [id number] [address] [place] [address], [place] [address] May, [facility] [address] [id number] [address] [place] [address], [place] [address] Apr, [facility] [address] [id number] [address] [place] [address], [place] [address] Apr, [facility] [address] [id number] [address] [place] [address], [place] [address] Apr, [facility] [address] [id number] [address] [place] [address], [place] [address] Mar, [facility] [address] [id number] [address] [place] [address], [place] [address] Mar, [facility] [address] [id number] [address] [place] [address], [place] [address] February, [facility] [address] [id number] [address] [place] [address], [place] [address] February, [facility] [address] [id number] [address] [place] [address], [place] [address] February, [facility] [address] [id number] [address] [place] [address], [place] [address] February, [facility] [address] [id number] [address] [place] [address], [place] [address] 19 Jan, 2013 [facility] [address] [id number] [address] [place] [address], [place] [address] 17 Jan, 2013 [facility] [address] [id number] [address] [place] [address], [place] [address] 16 Jan, 2013 [facility] [address] [id number] [address] [place] [address], [place] [address] 29 Dec, 2012 [facility] [address] [id number] [address] [place] [address], [place] [address] Dec, [facility] [address] [id number] [address] [place] [address], [place] [address] Dec, [facility] [address] [id number] [address] [place] [address], [place] [address] 08 Dec, 2012 [facility] [address] [id number] [address] [place] [address], [place] [address] Nov, [facility] [address] [id number] [address] [place] [address], [place] [address] Nov, [facility] [address] [id number] [address] [place] [address], [place] [address] Oct, [facility] [address] [id number] [address] [place] [address], [place] [address] Oct, [facility] [address] [id number] [address] [place] [address], [place] [address] Oct, [facility] [address] [id number] [address] [place] [address], [place] [address] Oct, [facility] [address] [id number] [address] [place] [address], [place] [address] Aug, [facility] [address] [id number] [address] [place] [address], [place] [address] Aug, [facility] [address] [id number] [address] [place] [address], [place] [address] 18 Jun, 2012 [facility] [address] [id number] [facility] [place] [address] May, [facility] [address] [id number] [address] [place] [address], [place] [address] May, [facility] [address] [id number] [address] [place] [address], [place] [address] Apr, [facility] [address] [id number] [address] [place] [address], [place] [address] Apr, [facility] [address] [id number] [address] [place] [address], [place] [address] Apr, [facility] [address] [id number] [address] [place] [address], [place] [address] Mar, [facility] [address] [id number] [address] [place] [address], [place] [address] Mar, [facility] [address] [id number] [address] [place] [address], [place] [address] Mar, [facility] [address] [id number] [address] [place] [address], [place] [address] Mar, [facility] [address] [id number] [address] [place] [address], [place] [address] Mar, [facility] [address] [id number] [address] [place] [address], [place] [address] February, [facility] [address] [id number] [address] [place] [address], [place] [address] February, [facility] [address] [id number] [address] [place] [address], [place] [address] February, [facility] [address] [id number] [address] [place] [address], [place] [address] February, [facility] [address] [id number] [address] [place] [address], [place] [address] February, [facility] [address] [id number] [address] [place] [address], [place] [address] February, [facility] [address] [id number] [address] [place] [address], [place] [address] February, [facility] [address] [id number] [address] [place] [address], [place] [address] Jan, [facility] [address] [id number] [address] [place] [address], [place] [address] Jan, [facility] [address] [id number] [address] [place] [address], [place] [address] 17 Jan, 2012 [facility] [address] [id number] [address] [place] [address], [place] [address] Jan, [facility] [address] [id number] [address] [place] [address], [place] [address] Jan, [facility] [address] [id number] [address] [place] [address], [place] [address] Jan, [facility] [address] [id number] [address] [place] [address], [place] [address] 30 Dec, 2011 [facility] [address] [id number] [address] [place] [address], [place] [address] 24 Dec, 2011 [facility] [address] [id number] [address] [place] [address], [place] [address] Dec, [facility] [address] [id number] [address] [place] [address], [place] [address] Dec, [facility] [address] [id number] [address] [place] [address], [place] [address] Dec, [facility] [address] [id number] [address] [place] [address], [place] [address] Nov, [facility] [address] [id number] [address] [place] [address], [place] [address] Nov, [facility] [address] [id number] [address] [place] [address], [place] [address] Nov, [facility] [address] [id number] [address] [place] [address], [place] [address] 14 Nov, 2011 [facility] [address] [id number] [address] [place] [address], [place] [address] 10 Nov, 2011 [facility] [address] [id number] [address] [place] [address], [place] [address] Nov, [facility] [address] [id number] [address] [place] [address], [place] [address] Oct, [facility] [address] [id number] [address] [place] [address], [place] [address] Oct, [facility] [address] [id number] [address] [place] [address], [place] [address] Oct, [facility] [address] [id number] [address] [place] [address], [place] [address] Oct, [facility] [address] [id number] [address] [place] [address], [place] [address] Oct, [facility] [address] [id number] [address] [place] [address], [place] [address] Sep, [facility] [address] [id number] [address] [place] [address], [place] [address] Sep, [facility] [address] [id number] [address] [place] [address], [place] [address] Sep, [facility] [address] [id number] [address] [place] [address], [place] [address] 14 Sep, 2011 [facility] [address] [id number] [address] [place] [address], [place] [address] 14 Sep, 2011 [facility] [address] [id number] [address] [place] [address], [place] [address] 13 Sep, 2011 [facility] [address] [id number] [address] [place] [address], [place] [address] 12 Sep, 2011 [facility] [address] [id number] [address] [place] [address], [place] [address] Sep, [facility] [address] [id number] [address] [place] [address], [place] [address] Sep, [facility] [address] [id number] [address] [place] [address], [place] [address] Aug, [facility] [address] [id number] [address] [place] [address], [place] [address] Aug, [facility] [address] [id number] [address] [place] [address], [place] [address] Aug, [facility] [address] [id number] [address] [place] [address], [place] [address] Aug, [facility] [address] [id number] [address] [place] [address], [place] [address] Aug, [facility] [address] [id number] [address] [place] [address], [place] [address] Aug, [facility] [address] [id number] [address] [place] [address], [place] [address] Aug, [facility] [address] [id number] [address] [place] [address], [place] [address] Aug, [facility] [address] [id number] [address] [place] [address], [place] [address] Aug, [facility] [address] [id number] [address] [place] [address], [place] [address] Aug, [facility] [address] [id number] [address] [place] [address], [place] [address] Aug, [facility] [address] [id number] [address] [place] [address], [place] [address] Aug, [facility] [address] [id number] [address] [place] [address], [place] [address] Jul, [facility] [address] [id number] [address] [place] [address], [place] [address] Jul, [facility] [address] [id number] [address] [place] [address] Jul, [facility] [address] [id number] [address] [place] [address] Jul, [facility] [address] [id number] [address] [place] [address] Jul, [facility] [address] [id number] [address] [place] [address] Jul, [facility] [address] [id number] [address] [place] [address] Jul, [facility] [address] [id number] [address] [place] [address] Jul, [facility] [address] [id number] [address] [place] [address] Jul, [facility] [address] [id number] [address] [place] [address] Jul, [facility] [address] [id number] [address] [place] [address] Nov, [facility] [address] [id number] [address] [place] [address] Aug, [facility] [address] [id number] [address] [place] [address] Aug, [facility] [address] [id number] [address] [place] [address] Aug, [facility] [address] [id number] [address] [place] [address] Aug, [facility] [address] [id number] [address] [place] [address] Jul, IMMUNIZATIONS No Known Immunizations SOCIAL HISTORY [...]
--- OUTSIDE RECORDS SUMMARY | 2020-04-04 02:34 | XMS REPORT ---
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 Active 18161028 Problem Generalized anxiety disorder 300.02 A ctive 06836690 Problem Obsessive-compulsive disorders 300.3 Active 526326155 Problem Catatonic schizophrenia, 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 177518831 Problem Disorganized schizophrenia, 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 27656715 Problem Paranoid schizophrenia F20.0 Active 21612173 Problem Borderline personality disorder F60.3 Active 11827883 Problem Paranoid schizophrenia, unspecified condition 295.30 Active 18327412 Problem Schizoaffective disorder, depressive type F25.1 Active 47488390 Problem Bipolar disorder, unspecified 296.80 Active 30118216 Problem Schizoaffective disorder, unspecified F25.9 Active 28256053 Problem Attention deficit hyperactivity disorder (ADHD), inattentive type, 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 95817317 Problem Posttraumatic stress disorder F43.10 Active 40337243 Problem High risk medication use Z79.899 Activ e [id number] ALLERGIES No Information ENCOUNTERS Encounter Location Date Diagnosis [facility] [address] [facility] [id number] [address] [place] [phone] Jan, [facility] [address] [facility] [id number] [address] [place] [phone] Dec, Paranoid schizophrenia F20.0 ; Posttraumatic stress disorder F43.10 ; Attention deficit hyperactivity disorder (ADHD), inattentive type, 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 and Borderline personality disorder F60.3 [facility] [address] [facility] [id number] [address] [place] [phone] Dec, Paranoid schizophrenia F20.0 ; Posttraumatic stress disorder F43.10 ; Attention deficit hyperactivity disorder (ADHD), inattentive type, 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 and Borderline personality disorder F60.3 [facility] [address] [place] [id number] [address] [place] [phone] Oct, Paranoid schizophrenia F20.0 ; Posttraumatic stress disorder F43.10 ; Attention deficit hyperactivity disorder (ADHD), inattentive type, 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 and Borderline personality disorder F60.3 [facility] [address] [place] [id number] [address] [place] [phone] Oct, Paranoid schizophrenia F20.0 ; Posttraumatic stress disorder F43.10 ; Attention deficit hyperactivity disorder (ADHD), inattentive type, 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 and Borderline personality disorder F60.3 [facility] [address] [place] [id number] [address] [place] [phone] Aug, [facility] [address] [place] [id number] [place] [phone] Aug, Paranoid schizophrenia F20.0 ; Posttraumatic stress disorder F43.10 ; Attention deficit hyperactivity disorder (ADHD), inattentive type, 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 and Borderline personality disorder F60.3 [facility] [address] [facility] [id number] [address] [place] [phone] Jul, Dry skin dermatitis L85.3 [facility] [address] [facility] [id number] [address] [place] [phone] Jul, [facility] [address] [facility] [id number] [address] [place] [phone] Jul, Paranoid schizophrenia F20.0 [facility] [address] [facility] [id number] [address] [place] [phone] May, Paranoid schizophrenia F20.0 ; Posttraumatic stress disorder F43.10 ; Attention deficit hyperactivity disorder (ADHD), inattentive type, 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 and Borderline personality disorder F60.3 [facility] [address] [facility] [id number] [address] [place] [phone] May, [facility] [address] [id number] [place] [address] May, Paranoid schizophrenia F20.0 [facility] [address] [id number] [address] [place] [address], [place] [address] May, Paranoid schizophrenia F20.0 ; Posttraumatic stress disorder F43.10 ; Attention deficit hyperactivity disorder (ADHD), inattentive type, 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 and Borderline personality disorder F60.3 [facility] [address] [id number] [facility] [place] [address] Apr, [facility] [address] [id number] [address] [place] [address], [place] [address] Apr, Paranoid schizophrenia F20.0 ; Posttraumatic stress disorder F43.10 ; Attention deficit hyperactivity disorder (ADHD), inattentive type, 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 and Borderline personality disorder F60.3 [facility] [address] [id number] [address] [place] [phone] Apr, [facility] [address] [id number] [address] [place] [phone] Apr, Schizoaffective disorder, de pressive type F25.1 and Borderline personality disorder F60.3 [facility] [address] [id number] [address] [place] [phone] Apr, Paranoid schizophrenia F20.0 ; Posttraumatic stress disorder F43.10 ; Attention deficit hyperactivity disorder (ADHD), inattentive type, 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 and Borderline personality disorder F60.3 [facility] [address] [id number] [address] [place] [phone] Apr, [facility] [address] [id number] [address] [place] [phone] Apr, Paranoid schizophrenia F20.0 ; Posttraumatic stress disorder F43.10 ; Attention deficit hyperactivity disorder (ADHD), inattentive type, 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 and Borderline personality disorder F60.3 [facility] [address] [id number] [address] [place] [phone] Apr, [facility] [address] [id number] [address] [place] [phone] Mar, Paranoid schizophrenia F20.0 [facility] [address] [id number] [address] [place] [phone] Mar, [facility] [address] [id number] [address] [place] [phone] Mar, Paranoid schizophrenia F20.0 ; Posttraumatic stress disorder F43.10 ; Attention deficit hyperactivity disorder (ADHD), inattentive type, 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 and Borderline personality disorder F60.3 [facility] [address] [id number] [address] [place] [phone] February, Paranoid schizophrenia F20.0 [facility] [address] [id number] [address] [place] [phone] February, Paranoid schizophrenia F20.0 ; Posttraumatic stress disorder F43.10 ; Attention deficit hyperactivity disorder (ADHD), inattentive type, 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 and Borderline personality disorder F60.3 [facility] [address] [id number] [address] [place] [phone] February, Paranoid schizophrenia F20.0 ; Posttraumatic stress disorder F43.10 ; Attention deficit hyperactivity disorder (ADHD), inattentive type, 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 and Borderline personality disorder F60.3 [facility] [address] [id number] [address] [place] [phone] February, [facility] [address] [id number] [address] [place] [phone] February, Paranoid schizophrenia F20.0 [facility] [address] [id number] [address] [place] [phone] February, Paranoid schizophrenia F20.0 [facility] [address] [id number] [address] [place] [phone] February, Paranoid schizophrenia F20.0 ; Posttraumatic stress disorder F43.10 ; Attention deficit hyperactivity disorder (ADHD), inattentive type, 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 and Borderline personality disorder F60.3 [facility] [address] [id number] [address] [place] [phone] Jan, Paranoid schizophrenia F20.0 ; Posttraumatic stress disorder F43.10 ; Attention deficit hyperactivity disorder (ADHD), inattentive type, 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 and Borderline personality disorder F60.3 [facility] [address] [id number] [address] [place] [phone] Jan, Paranoid schizophrenia F20.0 [facility] [address] [id number] [address] [place] [id number] Jan, Paranoid schizophrenia F20.0 [facility] [address] [facility] [id number] [address] [place] [phone] Jan, Paranoid schizophrenia F20.0 ; Posttraumatic stress disorder F43.10 ; Attention deficit hyperactivity disorder (ADHD), inattentive type, 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 and Borderline personality disorder F60.3 [facility] [address] [id number] [address] [place] [phone] Dec, [facility] [address] [id number] [address] [place] [phone] Nov, Paranoid schizophrenia F20.0 ; Posttraumatic stress disorder F43.10 ; Attention deficit hyperactivity disorder (ADHD), inattentive type, 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 and Borderline personality disorder F60.3 [facility] [address] [id number] [address] [place] [phone] Nov, [facility] [address] [id number] [address] [place] [phone] Oct, Paranoid schizophrenia F20.0 [facility] [address] [facility] [id number] [address] [place] [id number] Oct, Paranoid schizophrenia F20.0 ; Posttraumatic stress disorder F43.10 ; Attention deficit hyperactivity disorder (ADHD), inattentive type, 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 ; Borderline personality disorder F60.3 and Other custodial (current) drug therapy Z79.899 [facility] [address] [id number] [address] [place] [phone] Oct, [facility] [address] [facility] [id number] [address] [place] [phone] Oct, [facility] [address] [id number] [address] [place] [phone] Sep, [facility] [address] [id number] [address] [place] [phone] Sep, Paranoid schizophrenia F20.0 ; Posttraumatic stress disorder F43.10 ; Attention deficit hyperactivity disorder (ADHD), inattentive type, 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 and Borderline personality disorder F60.3 [facility] [address] [facility] [id number] [address] [place] [phone] Sep, Paranoid schizophrenia F20.0 [facility] [address] [id number] [address] [place] [phone] Aug, Paranoid schizophrenia F20.0 ; Posttraumatic stress disorder F43.10 ; Attention deficit hyperactivity disorder (ADHD), inattentive type, 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 and Borderline personality disorder F60.3 [facility] [address] [facility] [id number] [address] [place] [id number] Aug, Paranoid schizophrenia F20.0 ; Posttraumatic stress disorder F43.10 ; Attention deficit hyperactivity disorder (ADHD), inattentive type, 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 and Borderline personality disorder F60.3 [facility] [address] [id number] [address] [place] [phone] Aug, [facility] [address] [facility] [id number] [address] [place] [phone] Jul, Paranoid schizophrenia F20.0 ; Posttraumatic stress disorder F43.10 ; Attention deficit hyperactivity disorder (ADHD), inattentive type, 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 and Borderline personality disorder F60.3 [facility] [address] [id number] [address] [place] [phone] Jul, Paranoid schizophrenia F20.0 [facility] [address] [id number] [address] [place] [phone] Jul, Paranoid schizophrenia F20.0 ; Posttraumatic stress disorder F43.10 ; Attention deficit hyperactivity disorder (ADHD), inattentive type, 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 and Borderline personality disorder F60.3 [facility] [address] [id number] [address] [place] [phone] Jun, Paranoid schizophrenia F20.0 ; Posttraumatic stress disorder F43.10 ; Attention deficit hyperactivity disorder (ADHD), inattentive type, 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 and Borderline personality disorder F60.3 [facility] [address] [id number] [address] [place] [phone] May, Other custodial (current) dr ug therapy Z79.899 [facility] [address] [id number] [address] [place] [phone] May, [facility] [address] [id number] [address] [place] [phone] May, [facility] [address] [facility] [id number] [address] [place] [phone] May, Attention deficit hyperactiv ity disorder (ADHD), inattentive type, mild F90.0 [facility] [address] [facility] [id number] [address] [place] [phone] May, [facility] [address] [id number] [address] [place] [phone] May, Attention deficit hyperactiv ity disorder (ADHD), inattentive type, mild F90.0 [facility] [address] [id number] [address] [place] [phone] May, Paranoid schizophrenia F20.0 ; Posttraumatic stress disorder F43.10 ; Attention deficit hyperactivity disorder (ADHD), inattentive type, 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 and Other custodial (current) drug therapy Z79.899 [facility] [address] [id number] [address] [place] [phone] Apr, Paranoid schizophrenia F20.0 [facility] [address] [id number] [address] [place] [phone] Apr, Paranoid schizophrenia F20.0 ; Posttraumatic stress disorder F43.10 and Attention deficit hyperactivity disorder (ADHD), inattentive type, 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 [facility] [address] [id number] [address] [place] [phone] February, [facility] [address] [id number] [address] [place] [phone] February, Paranoid schizophrenia F20.0 ; Posttraumatic stress disorder F43.10 and Attention deficit hyperactivity disorder (ADHD), inattentive type, 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 [facility] [address] [id number] [address] [place] [phone] February, Paranoid schizophrenia F20.0 ; Posttraumatic stress disorder F43.10 and Attention deficit hyperactivity disorder (ADHD), inattentive type, 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 [facility] [address] [id number] [address] [place] [phone] Jan, Paranoid schizophrenia F20.0 ; Posttraumatic stress disorder F43.10 and Attention deficit hyperactivity disorder (ADHD), inattentive type, 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 [facility] [address] [id number] [address] [place] [id number] Dec, Dental examination Z01.20 [facility] [address] [id number] [address] [place] [address] [id number] Nov, Dental examination Z01.20 [facility] [address] [id number] [address] [place] [address] [id number] Nov, Dental examination Z01.20 [facility] [address] [id number] [address] [place] [address] [id number] Nov, Dental caries K02.9 [facility] [address] [id number] [address] [place] [phone] Nov, High risk medication use Z79 .899 [facility] [address] [id number] [address] [place] [id number] Nov, Paranoid schizophrenia F20.0 ; Posttraumatic stress disorder F43.10 ; Attention deficit hyperactivity disorder (ADHD), inattentive type, 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0 ; Posttraumatic stress disorder F43.10 and Attention deficit hyperactivity disorder (ADHD), inattentive type, 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 [facility] [address] [id number] [address] [place] [phone] Aug, Strep throat J02.0 and Cough R05 [facility] [address] [id number] [address] [place] [phone] Aug, [facility] [address] [id number] [address] [place] [phone] 24 Jul, 2016 Paranoid schizophrenia F20.0 ; Posttraumatic stress disorder F43.10 and Attention deficit hyperactivity disorder (ADHD), inattentive type, 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 [facility] [address] [id number] [address] [place] [phone] Jul, [facility] [address] [id number] [address] [place] [phone] Jun, Paranoid schizophrenia F20.0 ; Posttraumatic stress disorder F43.10 and Attention deficit hyperactivity disorder (ADHD), inattentive type, 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 [facility] [address] [id number] [address] [place] [address] [id number] Jun, Dental examination Z01.20 [facility] [address] [id number] [address] [place] [phone] Jun, [facility] [address] [id number] [address] [place] [phone] May, Paranoid schizophrenia F20.0 [facility] [address] [id number] [address] [place] [phone] May, Paranoid schizophrenia F20.0 ; Posttraumatic stress disorder F43.10 and Attention deficit hyperactivity disorder (ADHD), inattentive type, 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 [facility] [address] [id number] [address] [place] [phone] May, [facility] [address] [id number] [address] [place] [phone] May, Paranoid schizophrenia F20.0 [facility] [address] [id number] [address] [place] [phone] May, [facility] [address] [id number] [address] [place] [phone] May, Paranoid schizophrenia F20.0 [facility] [address] [id number] [address] [place] [phone] May, Schizoaffective disorder, un specified F25.9 [facility] [address] [id number] [address] [place] [phone] May, Schizoaffective disorder, un specified F25.9 [facility] [address] [id number] [address] [place] [phone] May, [facility] [address] [id number] [address] [place] [phone] May, Paranoid schizophrenia F20.0 [facility] [address] [id number] [address] [place] [id number] May, Paranoid schizophrenia F20.0 ; Posttraumatic stress disorder F43.10 and Attention deficit hyperactivity disorder (ADHD), inattentive type, 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 [facility] [address] [id number] [address] [place] [address], [place] [address] Mar, [facility] [address] [id number] [facility] [place] [address] Mar, Paranoid schizophrenia F20.0 ; Posttraumatic stress disorder F43.10 and Attention deficit hyperactivity disorder (ADHD), inattentive type, 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 [facility] [address] [id number] [address] [place] [address], [place] [address] Mar, Paranoid schizophrenia F20.0 [facility] [address] [id number] [address] [place] [address], [place] [address] Mar, Paranoid schizophrenia F20.0 ; Attention deficit hyperactivity disorder (ADHD), inattentive type, 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 and Posttraumatic stress disorder F43.10 [facility] [address] [id number] [address] [place] [phone] Mar, [facility] [address] [id number] [address] [place] [address], [place] [address] Mar, Paranoid schizophrenia F20.0 ; Posttraumatic stress disorder F43.10 and Attention deficit hyperactivity disorder (ADHD), inattentive type, 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 [facility] [address] [id number] [address] [place] [address], [place] [address] February, [facility] [address] [id number] [address] [place] [phone] February, [facility] [address] [id number] [address] [place] [address], [place] [address] February, [facility] [address] [id number] [address] [place] [phone] February, [facility] [address] [id number] [address] [place] [address], [place] [address] Jan, Paranoid schizophrenia F20.0 [facility] [address] [id number] [address] [place] [address] [id number] Jan, Dental examination Z01.20 [facility] [address] [id number] [address] [place] [address] [id number] Jan, Dental caries K02.9 [facility] [address] [id number] [address] [place] [address] [id number] Jan, Dental examination Z01.20 [facility] [address] [id number] [address] [place] [address] [id number] Dec, Encounter for dental examina tion Z01.20 [facility] [address] [id number] [address] [place] [phone] Dec, Paranoid schizophrenia F20.0 [facility] [address] [id number] [address] [place] [address] [id number] Dec, Dental examination Z01.20 [facility] [address] [id number] [address] [place] [phone] Dec, [facility] [address] [id number] [address] [place] [phone] Dec, Paranoid schizophrenia F20.0 ; Posttraumatic stress disorder F43.10 and Attention deficit hyperactivity disorder (ADHD), inattentive type, 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 [facility] [address] [id number] [address] [place] [phone] Nov, Schizoaffective disorder, un specified F25.9 [facility] [address] [id number] [address] [place] [phone] Oct, Paranoid schizophrenia F20.0 [facility] [address] [id number] [address] [place] [phone] Oct, [facility] [address] [id number] [address] [place] [id number] Sep, Paranoid schizophrenia F20.0 ; Posttraumatic stress disorder F43.10 and Attention deficit hyperactivity disorder (ADHD), inattentive type, 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 [facility] [address] [id number] [address] [place] [address] Sep, [facility] [address] [facility] [id number] [address] [place], [place] [address] Sep, Paranoid schizophrenia F20.0 ; Posttraumatic stress disorder F43.10 and Attention deficit hyperactivity disorder (ADHD), inattentive type, 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 [facility] [address] [facility] [id number] [address] [place] [address] Aug, Paranoid schizophrenia F20.0 [facility] [address] [facility] [id number] [address] [place] [address] Aug, [facility] [address] [facility] [id number] [address] [place] [address] Aug, Posttraumatic stress disorde r F43.10 ; Paranoid schizophrenia F20.0 and Attention deficit hyperactivity disorder (ADHD), inattentive type, 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 [facility] [address] [facility] [id number] [address] [place] [address] Jul, Bipolar disorder, unspecifie d F31.9 [facility] [address] [facility] [id number] [address] [place] [address] Jul, [facility] [address] [facility] [id number] [address] [place] [address] Jun, [facility] [address] [facility] [id number] [address] [place] [address] Jun, Schizoaffective disorder, ch ronic 295.72 ; Posttraumatic stress disorder 309.81 and Attention deficit disorder of childhood without mention of hyperactivity 314.00 [facility] [address] [facility] [id number] [address] [place] [address] May, [facility] [address] [facility] [id number] [address] [place] [address] May, [facility] [address] [facility] [id number] [address] [place] [address] May, Schizoaffective disorder, ch ronic 295.72 ; Posttraumatic stress disorder 309.81 ; Attention deficit disorder of childhood without mention of hyperactivity 314.00 and Bipolar disorder, unspecified 296.80 [facility] [address] [facility] [id number] [address] [place] [address] Apr, Schizoaffective disorder, ch ronic 295.72 [facility] [address] [facility] [id number] [address] [place] [address] Apr, [facility] [address] [id number] [address] [place] [address] Apr, Schizoaffective disorder, ch ronic 295.72 ; Posttraumatic stress disorder 309.81 and Attention deficit disorder of childhood without mention of hyperactivity 314.00 [facility] [address] [facility] [id number] [address] [place] [address] Mar, Disorganized schizophrenia, 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 [facility] [address] [facility] [id number] [address] [place] [id number] Mar, [facility] [address] [facility] [id number] [address] [place] [address] Mar, [facility] [address] [facility] [id number] [address] [place] [address] Mar, [facility] [address] [facility] [id number] [address] [place] [id number] Mar, [facility] [address] [facility] [id number] [address] [place] [address] February, Schizoaffective disorder, ch ronic 295.72 [facility] [address] [facility] [id number] [address] [place] [address] February, [facility] [address] [facility] [id number] [address] [place] [address] February, Attention 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 ; Posttraumatic stress disorder 309.81 and Schizoaffective disorder, chronic 295.72 [facility] [address] [id number] [address] [place] [address], [place] [address] 29 Jan, 2015 [facility] [address] [id number] [address] [place] [address], [place] [address] 14 Jan, 2015 [facility] [address] [id number] [address] [place] [address], [place] [address] Jan, [facility] [address] [id number] [address] [place] [address], [place] [address] Dec, [facility] [address] [id number] [address] [place] [address], [place] [address] Dec, [facility] [address] [id number] [address] [place] [address], [place] [address] Dec, [facility] [address] [id number] [address] [place] [address], [place] [address] Dec, [facility] [address] [id number] [address] [place] [address], [place] [address] Dec, [facility] [address] [id number] [address] [place] [address], [place] [address] Dec, [facility] [address] [id number] [address] [place] [address], [place] [address] Dec, [facility] [address] [id number] [address] [place] [address], [place] [address] Dec, [facility] [address] [id number] [address] [place] [address], [place] [address] Nov, [facility] [address] [id number] [address] [place] [address], [place] [address] Nov, [facility] [address] [id number] [address] [place] [address], [place] [address] Nov, [facility] [address] [id number] [address] [place] [address], [place] [address] Nov, [facility] [address] [id number] [address] [place] [address], [place] [address] Nov, [facility] [address] [id number] [address] [place] [address], [place] [address] Nov, [facility] [address] [id number] [address] [place] [address], [place] [address] Nov, [facility] [address] [id number] [address] [place] [address], [place] [address] Nov, [facility] [address] [id number] [address] [place] [address], [place] [address] Nov, [facility] [address] [id number] [address] [place] [address], [place] [address] Nov, [facility] [address] [id number] [address] [place] [address], [place] [address] Oct, [facility] [address] [id number] [address] [place] [address], [place] [address] Oct, [facility] [address] [id number] [address] [place] [address], [place] [address] Oct, [facility] [address] [id number] [address] [place] [address], [place] [address] Oct, [facility] [address] [id number] [address] [place] [address], [place] [address] Oct, [facility] [address] [id number] [address] [place] [address], [place] [address] Oct, [facility] [address] [id number] [address] [place] [address], [place] [address] Oct, [facility] [address] [id number] [address] [place] [address], [place] [address] Sep, [facility] [address] [id number] [address] [place] [address], [place] [address] Sep, [facility] [address] [id number] [address] [place] [address], [place] [address] Sep, [facility] [address] [id number] [address] [place] [address], [place] [address] 15 Sep, 2014 [facility] [address] [id number] [address] [place] [address], [place] [address] Aug, [facility] [address] [id number] [address] [place] [address], [place] [address] Aug, [facility] [address] [id number] [address] [place] [address], [place] [address] Aug, [facility] [address] [id number] [address] [place] [address], [place] [address] Aug, [facility] [address] [id number] [address] [place] [address], [place] [address] Aug, [facility] [address] [id number] [address] [place] [address], [place] [address] Aug, [facility] [address] [id number] [address] [place] [address], [place] [address] Jul, [facility] [address] [id number] [address] [place] [address], [place] [address] 29 Jul, 2014 [facility] [address] [id number] [address] [place] [address], [place] [address] 24 Jul, 2014 [facility] [address] [id number] [address] [place] [address], [place] [address] 24 Jul, 2014 [facility] [address] [id number] [address] [place] [address], [place] [address] 15 Jul, 2014 [facility] [address] [id number] [address] [place] [address], [place] [address] 15 Jul, 2014 [facility] [address] [id number] [address] [place] [address], [place] [address] 27 Jun, 2014 [facility] [address] [id number] [address] [place] [address], [place] [address] 27 Jun, 2014 [facility] [address] [id number] [address] [place] [address], [place] [address] Jun, 2013 [facility] [address] [id number] [facility] [place] [address] 26 Jun, 2013 [facility] [address] [id number] [facility] [place] [address] Jun, 2013 [facility] [address] [id number] [address] [place] [address], [place] [address] Jun, 2013 [facility] [address] [id number] [address] [place] [address], [place] [address] 16 Jun, 2013 [facility] [address] [id number] [address] [place] [address], [place] [address] 16 Jun, 2013 [facility] [address] [id number] [address] [place] [address], [place] [address] Jun, 2013 [facility] [address] [id number] [address] [place] [address], [place] [address] Jun, 2013 [facility] [address] [id number] [address] [place] [address], [place] [address] Jun, [facility] [address] [id number] [address] [place] [address], [place] [address] May, [facility] [address] [id number] [address] [place] [address], [place] [address] May, [facility] [address] [id number] [address] [place] [address], [place] [address] May, [facility] [address] [id number] [address] [place] [address], [place] [address] May, [facility] [address] [id number] [address] [place] [address], [place] [address] May, [facility] [address] [id number] [address] [place] [address], [place] [address] May, [facility] [address] [id number] [address] [place] [address], [place] [address] May, [facility] [address] [id number] [address] [place] [address], [place] [address] May, [facility] [address] [id number] [address] [place] [address], [place] [address] May, [facility] [address] [id number] [address] [place] [address], [place] [address] May, [facility] [address] [id number] [address] [place] [address], [place] [address] Apr, [facility] [address] [id number] [address] [place] [address], [place] [address] Apr, [facility] [address] [id number] [address] [place] [address], [place] [address] Apr, [facility] [address] [id number] [address] [place] [address], [place] [address] Apr, [facility] [address] [id number] [address] [place] [address], [place] [address] Apr, [facility] [address] [id number] [address] [place] [address], [place] [address] Apr, [facility] [address] [id number] [address] [place] [address], [place] [address] Apr, [facility] [address] [id number] [address] [place] [address], [place] [address] Apr, [facility] [address] [id number] [address] [place] [address], [place] [address] Apr, [facility] [address] [id number] [address] [place] [address], [place] [address] Apr, [facility] [address] [id number] [address] [place] [address], [place] [address] Mar, [facility] [address] [id number] [address] [place] [address], [place] [address] Mar, [facility] [address] [id number] [address] [place] [address], [place] [address] Mar, [facility] [address] [id number] [address] [place] [address], [place] [address] Mar, [facility] [address] [id number] [address] [place] [address], [place] [address] Mar, [facility] [address] [id number] [address] [place] [address], [place] [address] Mar, [facility] [address] [id number] [address] [place] [address], [place] [address] Mar, [facility] [address] [id number] [address] [place] [address], [place] [address] Mar, [facility] [address] [id number] [address] [place] [address], [place] [address] Mar, [facility] [address] [id number] [address] [place] [address], [place] [address] Mar, [facility] [address] [id number] [address] [place] [address], [place] [address] Mar, [facility] [address] [id number] [address] [place] [address], [place] [address] Mar, [facility] [address] [id number] [address] [place] [address], [place] [address] Mar, [facility] [address] [id number] [address] [place] [address], [place] [address] Mar, [facility] [address] [id number] [address] [place] [address], [place] [address] Mar, [facility] [address] [id number] [address] [place] [address], [place] [address] Mar, [facility] [address] [id number] [address] [place] [address], [place] [address] Mar, [facility] [address] [id number] [address] [place] [address], [place] [address] 09 Mar, 2014 [facility] [address] [id number] [address] [place] [address], [place] [address] Mar, [facility] [address] [id number] [facility] [place] [address] Mar, [facility] [address] [id number] [address] [place] [address], [place] [address] February, [facility] [address] [id number] [address] [place] [address], [place] [address] February, [facility] [address] [id number] [address] [place] [address], [place] [address] February, [facility] [address] [id number] [address] [place] [address], [place] [address] February, [facility] [address] [id number] [address] [place] [address], [place] [address] February, [facility] [address] [id number] [address] [place] [address], [place] [address] February, [facility] [address] [id number] [address] [place] [address], [place] [address] February, [facility] [address] [id number] [address] [place] [address], [place] [address] February, [facility] [address] [id number] [address] [place] [address], [place] [address] February, [facility] [address] [id number] [address] [place] [address], [place] [address] February, [facility] [address] [id number] [address] [place] [address], [place] [address] February, [facility] [address] [id number] [address] [place] [address], [place] [address] February, [facility] [address] [id number] [address] [place] [address], [place] [address] February, [facility] [address] [id number] [address] [place] [address], [place] [address] February, [facility] [address] [id number] [address] [place] [address], [place] [address] February, [facility] [address] [id number] [address] [place] [address], [place] [address] February, [facility] [address] [id number] [address] [place] [address], [place] [address] February, [facility] [address] [id number] [address] [place] [address], [place] [address] February, [facility] [address] [id number] [address] [place] [address], [place] [address] February, [facility] [address] [id number] [address] [place] [address], [place] [address] February, [facility] [address] [id number] [address] [place] [address], [place] [address] February, [facility] [address] [id number] [address] [place] [address], [place] [address] Jan, [facility] [address] [id number] [address] [place] [address], [place] [address] Jan, [facility] [address] [id number] [address] [place] [address], [place] [address] Jan, [facility] [address] [id number] [address] [place] [address], [place] [address] Jan, [facility] [address] [id number] [address] [place] [address], [place] [address] Jan, [facility] [address] [id number] [address] [place] [address], [place] [address] Jan, [facility] [address] [id number] [address] [place] [address], [place] [address] Jan, [facility] [address] [id number] [address] [place] [address], [place] [address] Jan, [facility] [address] [id number] [address] [place] [address], [place] [address] Dec, [facility] [address] [id number] [facility] [place] [address] 20 Dec, 2013 [facility] [address] [id number] [facility] [place] [address] 20 Dec, 2013 [facility] [address] [id number] [facility] [place] [address] 19 Dec, 2013 [facility] [facility] [address] [id number] [address] [place] [address], [place] [address] 19 Dec, 2013 [facility] [address] [id number] [address] [place] [address], [place] [address] 15 Dec, 2013 [facility] [place] [facility] [address] [id number] [address] [place] [address], [place] [address] 15 Dec, 2013 [facility] [address] [id number] [address] [place] [address], [place] [address] 11 Dec, 2013 [facility] [place] [facility] [address] [id number] [address] [place] [address], [place] [address] 10 Dec, 2013 [facility] [place] [facility] [address] [id number] [address] [place] [address], [place] [address] 10 Dec, 2013 [facility] [place] [facility] [address] [id number] [address] [place] [address], [place] [address] 18 Nov, 2013 [facility] [place] [facility] [address] [id number] [address] [place] [address], [place] [address] 17 Nov, 2013 [facility] [place] [facility] [address] [id number] [address] [place] [address], [place] [address] Nov, [facility] [place] [facility] [address] [id number] [address] [place] [address], [place] [address] 05 Nov, 2013 [facility] [place] [facility] [address] [id number] [address] [place] [address], [place] [address] 05 Nov, 2013 [facility] [place] [facility] [address] [id number] [address] [place] [address], [place] [address] Oct, [facility] [place] [facility] [address] [id number] [address] [place] [address] Oct, [facility] [address] [id number] [address] [place] [address], [place] [address] Oct, [facility] [address] [id number] [address] [place] [address], [place] [address] Sep, [facility] [address] [id number] [address] [place] [address], [place] [address] Sep, [facility] [address] [id number] [address] [place] [address], [place] [address] Sep, [facility] [address] [id number] [address] [place] [address], [place] [address] Sep, [facility] [address] [id number] [address] [place] [address], [place] [address] Aug, [facility] [address] [id number] [address] [place] [address], [place] [address] Aug, [facility] [address] [id number] [address] [place] [address], [place] [address] Jul, [facility] [address] [id number] [address] [place] [address], [place] [address] Jul, [facility] [address] [id number] [address] [place] [address], [place] [address] Jul, [facility] [address] [id number] [address] [place] [address], [place] [address] Jul, [facility] [address] [id number] [address] [place] [address], [place] [address] Jul, [facility] [address] [id number] [address] [place] [address], [place] [address] Jun, [facility] [address] [id number] [address] [place] [address], [place] [address] Jun, [facility] [address] [id number] [address] [place] [address], [place] [address] 19 Jun, 2013 [facility] [place] [address] [id number] [address] [place] [address], [place] [address] 18 Jun, 2013 [facility] [address] [id number] [address] [place] [address], [place] [address] 16 Jun, 2013 [facility] [address] [id number] [address] [place] [address], [place] [address] 12 Jun, 2013 [facility] [address] [id number] [address] [place] [address], [place] [address] 11 Jun, 2013 [facility] [address] [id number] [address] [place] [address], [place] [address] 30 May, 2013 [facility] [address] [id number] [address] [place] [address], [place] [address] May, [facility] [address] [id number] [address] [place] [address], [place] [address] Apr, [facility] [address] [id number] [address] [place] [address], [place] [address] Apr, [facility] [address] [id number] [address] [place] [address], [place] [address] Apr, [facility] [address] [id number] [address] [place] [address], [place] [address] Mar, [facility] [address] [id number] [address] [place] [address], [place] [address] Mar, [facility] [address] [id number] [address] [place] [address], [place] [address] February, [facility] [address] [id number] [address] [place] [address], [place] [address] February, [facility] [address] [id number] [address] [place] [address], [place] [address] February, [facility] [address] [id number] [address] [place] [address], [place] [address] February, [facility] [address] [id number] [address] [place] [address], [place] [address] 19 Jan, 2013 [facility] [address] [id number] [address] [place] [address], [place] [address] 17 Jan, 2013 [facility] [address] [id number] [address] [place] [address], [place] [address] 16 Jan, 2013 [facility] [address] [id number] [address] [place] [address], [place] [address] 29 Dec, 2012 [facility] [address] [id number] [address] [place] [address], [place] [address] Dec, [facility] [address] [id number] [address] [place] [address], [place] [address] Dec, [facility] [address] [id number] [address] [place] [address], [place] [address] 08 Dec, 2012 [facility] [address] [id number] [address] [place] [address], [place] [address] Nov, [facility] [address] [id number] [address] [place] [address], [place] [address] Nov, [facility] [address] [id number] [address] [place] [address], [place] [address] Oct, [facility] [address] [id number] [address] [place] [address], [place] [address] Oct, [facility] [address] [id number] [address] [place] [address], [place] [address] Oct, [facility] [address] [id number] [address] [place] [address], [place] [address] Oct, [facility] [address] [id number] [address] [place] [address], [place] [address] Aug, [facility] [address] [id number] [address] [place] [address], [place] [address] Aug, [facility] [address] [id number] [address] [place] [address], [place] [address] 18 Jun, 2012 [facility] [address] [id number] [facility] [place] [address] May, [facility] [address] [id number] [address] [place] [address], [place] [address] May, [facility] [address] [id number] [address] [place] [address], [place] [address] Apr, [facility] [address] [id number] [address] [place] [address], [place] [address] Apr, [facility] [address] [id number] [address] [place] [address], [place] [address] Apr, [facility] [address] [id number] [address] [place] [address], [place] [address] Mar, [facility] [address] [id number] [address] [place] [address], [place] [address] Mar, [facility] [address] [id number] [address] [place] [address], [place] [address] Mar, [facility] [address] [id number] [address] [place] [address], [place] [address] Mar, [facility] [address] [id number] [address] [place] [address], [place] [address] Mar, [facility] [address] [id number] [address] [place] [address], [place] [address] February, [facility] [address] [id number] [address] [place] [address], [place] [address] February, [facility] [address] [id number] [address] [place] [address], [place] [address] February, [facility] [address] [id number] [address] [place] [address], [place] [address] February, [facility] [address] [id number] [address] [place] [address], [place] [address] February, [facility] [address] [id number] [address] [place] [address], [place] [address] February, [facility] [address] [id number] [address] [place] [address], [place] [address] February, [facility] [address] [id number] [address] [place] [address], [place] [address] Jan, [facility] [address] [id number] [address] [place] [address], [place] [address] Jan, [facility] [address] [id number] [address] [place] [address], [place] [address] 17 Jan, 2012 [facility] [address] [id number] [address] [place] [address], [place] [address] Jan, [facility] [address] [id number] [address] [place] [address], [place] [address] Jan, [facility] [address] [id number] [address] [place] [address], [place] [address] Jan, [facility] [address] [id number] [address] [place] [address], [place] [address] 30 Dec, 2011 [facility] [address] [id number] [address] [place] [address], [place] [address] 24 Dec, 2011 [facility] [address] [id number] [address] [place] [address], [place] [address] Dec, [facility] [address] [id number] [address] [place] [address], [place] [address] Dec, [facility] [address] [id number] [address] [place] [address], [place] [address] Dec, [facility] [address] [id number] [address] [place] [address], [place] [address] Nov, [facility] [address] [id number] [address] [place] [address], [place] [address] Nov, [facility] [address] [id number] [address] [place] [address], [place] [address] Nov, [facility] [address] [id number] [address] [place] [address], [place] [address] 14 Nov, 2011 [facility] [address] [id number] [address] [place] [address], [place] [address] 10 Nov, 2011 [facility] [address] [id number] [address] [place] [address], [place] [address] Nov, [facility] [address] [id number] [address] [place] [address], [place] [address] Oct, [facility] [address] [id number] [address] [place] [address], [place] [address] Oct, [facility] [address] [id number] [address] [place] [address], [place] [address] Oct, [facility] [address] [id number] [address] [place] [address], [place] [address] Oct, [facility] [address] [id number] [address] [place] [address], [place] [address] Oct, [facility] [address] [id number] [address] [place] [address], [place] [address] Sep, [facility] [address] [id number] [address] [place] [address], [place] [address] Sep, [facility] [address] [id number] [address] [place] [address], [place] [address] Sep, [facility] [address] [id number] [address] [place] [address], [place] [address] 14 Sep, 2011 [facility] [address] [id number] [address] [place] [address], [place] [address] 14 Sep, 2011 [facility] [address] [id number] [address] [place] [address], [place] [address] 13 Sep, 2011 [facility] [address] [id number] [address] [place] [address], [place] [address] 12 Sep, 2011 [facility] [address] [id number] [address] [place] [address], [place] [address] Sep, [facility] [address] [id number] [address] [place] [address], [place] [address] Sep, [facility] [address] [id number] [address] [place] [address], [place] [address] Aug, [facility] [address] [id number] [address] [place] [address], [place] [address] Aug, [facility] [address] [id number] [address] [place] [address], [place] [address] Aug, [facility] [address] [id number] [address] [place] [address], [place] [address] Aug, [facility] [address] [id number] [address] [place] [address], [place] [address] Aug, [facility] [address] [id number] [address] [place] [address], [place] [address] Aug, [facility] [address] [id number] [address] [place] [address], [place] [address] Aug, [facility] [address] [id number] [address] [place] [address], [place] [address] Aug, [facility] [address] [id number] [address] [place] [address], [place] [address] Aug, [facility] [address] [id number] [address] [place] [address], [place] [address] Aug, [facility] [address] [id number] [address] [place] [address], [place] [address] Aug, [facility] [address] [id number] [address] [place] [address], [place] [address] Aug, [facility] [address] [id number] [address] [place] [address], [place] [address] Jul, [facility] [address] [id number] [address] [place] [address], [place] [address] Jul, [facility] [address] [id number] [address] [place] [address] Jul, [facility] [address] [id number] [address] [place] [address] Jul, [facility] [address] [id number] [address] [place] [address] Jul, [facility] [address] [id number] [address] [place] [address] Jul, [facility] [address] [id number] [address] [place] [address] Jul, [facility] [address] [id number] [address] [place] [address] Jul, [facility] [address] [id number] [address] [place] [address] Jul, [facility] [address] [id number] [address] [place] [address] Jul, [facility] [address] [id number] [address] [place] [address] Nov, [facility] [address] [id number] [address] [place] [phone] Aug, [facility] [address] [id number] [address] [place] [address] Aug, [facility] [address] [id number] [address] [place] [address] Aug, [facility] [address] [id number] [address] [place] [id number] Aug, [facility] [address] [id number] [address] [place] [address] Jul, IMMUNIZATIONS No Known Immunizations SOCIAL HISTORY [...] Suicide attempt by hanging 2015 Hospitalization History [facility] 01/30/2018-02/10/20 08 Hospitalization History [facility] 05/04/18-
--- OUTSIDE RECORDS SUMMARY | 2020-04-04 02:34 | XMS REPORT ---
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 Active 70900207 Problem Generalized anxiety disorder 300.02 A ctive 59771604 Problem Obsessive-compulsive disorders 300.3 Active 891953673 Problem Catatonic schizophrenia, 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 304219332 Problem Disorganized schizophrenia, 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 25274234 Problem Paranoid schizophrenia F20.0 Active 68652838 Problem Borderline personality disorder F60.3 Active 82988869 Problem Paranoid schizophrenia, unspecified condition 295.30 Active 30191584 Problem Schizoaffective disorder, depressive type F25.1 Active 61228234 Problem Bipolar disorder, unspecified 296.80 Active 39861423 Problem Schizoaffective disorder, unspecified F25.9 Active 21533098 Problem Attention deficit hyperactivity disorder (ADHD), inattentive type, 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 08601861 Problem Posttraumatic stress disorder F43.10 Active 23009917 Problem High risk medication use Z79.899 Activ e [id number] ALLERGIES No Information ENCOUNTERS Encounter Location Date Diagnosis [facility] [address] [facility] [id number] [address] [place] [phone] Jan, [facility] [address] [facility] [id number] [address] [place] [address] Dec, Paranoid schizophrenia F20.0 ; Posttraumatic stress disorder F43.10 ; Attention deficit hyperactivity disorder (ADHD), inattentive type, 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 and Borderline personality disorder F60.3 [facility] [address] [facility] [id number] [address] [place] [address] Dec, Paranoid schizophrenia F20.0 ; Posttraumatic stress disorder F43.10 ; Attention deficit hyperactivity disorder (ADHD), inattentive type, 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 and Borderline personality disorder F60.3 [facility] [address] [place] [id number] [address] [place] [address] Oct, Paranoid schizophrenia F20.0 ; Posttraumatic stress disorder F43.10 ; Attention deficit hyperactivity disorder (ADHD), inattentive type, 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 and Borderline personality disorder F60.3 [facility] [address] [place] [place] [id number] [address] [place] [address] Oct, Paranoid schizophrenia F20.0 ; Posttraumatic stress disorder F43.10 ; Attention deficit hyperactivity disorder (ADHD), inattentive type, 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 and Borderline personality disorder F60.3 [facility] [address] [place] [place] [id number] [address] [place] [address] Aug, [facility] [address] [place] [id number] [place] [address] Aug, Paranoid schizophrenia F20.0 ; Posttraumatic stress disorder F43.10 ; Attention deficit hyperactivity disorder (ADHD), inattentive type, 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 and Borderline personality disorder F60.3 [facility] [address] [facility] [id number] [address] [place] [address] Jul, Dry skin dermatitis L85.3 [facility] [address] [facility] [id number] [address] [place] [phone] Jul, [facility] [address] [facility] [id number] [address] [place] [phone] Jul, Paranoid schizophrenia F20.0 [facility] [address] [facility] [id number] [address] [place] [address] May, Paranoid schizophrenia F20.0 ; Posttraumatic stress disorder F43.10 ; Attention deficit hyperactivity disorder (ADHD), inattentive type, 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 and Borderline personality disorder F60.3 [facility] [address] [facility] [id number] [address] [place] [phone] May, [facility] [address] [id number] [address] [address] May, Paranoid schizophrenia F20.0 [facility] [address] [id number] [address] [place] [address], [place] [address] May, Paranoid schizophrenia F20.0 ; Posttraumatic stress disorder F43.10 ; Attention deficit hyperactivity disorder (ADHD), inattentive type, 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 and Borderline personality disorder F60.3 [facility] [address] [id number] [facility] [place] [address] Apr, [facility] [address] [id number] [address] [place] [address], [place] [address] Apr, Paranoid schizophrenia F20.0 ; Posttraumatic stress disorder F43.10 ; Attention deficit hyperactivity disorder (ADHD), inattentive type, 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 and Borderline personality disorder F60.3 [facility] [address] [id number] [address] [place] [id number] Apr, [facility] [address] [id number] [address] [place] [address] Apr, Schizoaffective disorder, de pressive type F25.1 and Borderline personality disorder F60.3 [facility] [address] [id number] [address] [place] [address] Apr, Paranoid schizophrenia F20.0 ; Posttraumatic stress disorder F43.10 ; Attention deficit hyperactivity disorder (ADHD), inattentive type, 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 and Borderline personality disorder F60.3 [facility] [address] [id number] [address] [place] [address] Apr, [facility] [address] [id number] [address] [place] [address] Apr, Paranoid schizophrenia F20.0 ; Posttraumatic stress disorder F43.10 ; Attention deficit hyperactivity disorder (ADHD), inattentive type, 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 and Borderline personality disorder F60.3 [facility] [address] [id number] [address] [place] [address] Apr, [facility] [address] [id number] [address] [place] [address] Mar, Paranoid schizophrenia F20.0 [facility] [address] [id number] [address] [place] [address] Mar, [facility] [address] [id number] [address] [place] [address] Mar, Paranoid schizophrenia F20.0 ; Posttraumatic stress disorder F43.10 ; Attention deficit hyperactivity disorder (ADHD), inattentive type, 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 and Borderline personality disorder F60.3 [facility] [address] [id number] [address] [place] [address] February, Paranoid schizophrenia F20.0 [facility] [address] [id number] [address] [place] [address] February, Paranoid schizophrenia F20.0 ; Posttraumatic stress disorder F43.10 ; Attention deficit hyperactivity disorder (ADHD), inattentive type, 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 and Borderline personality disorder F60.3 [facility] [address] [id number] [address] [place] [address] February, Paranoid schizophrenia F20.0 ; Posttraumatic stress disorder F43.10 ; Attention deficit hyperactivity disorder (ADHD), inattentive type, 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 and Borderline personality disorder F60.3 [facility] [address] [id number] [address] [place] [address] February, [facility] [address] [id number] [address] [place] [address] February, Paranoid schizophrenia F20.0 [facility] [address] [id number] [address] [place] [address] February, Paranoid schizophrenia F20.0 [facility] [address] [id number] [address] [place] [address] February, Paranoid schizophrenia F20.0 ; Posttraumatic stress disorder F43.10 ; Attention deficit hyperactivity disorder (ADHD), inattentive type, 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 and Borderline personality disorder F60.3 [facility] [address] [id number] [address] [place] [address] Jan, Paranoid schizophrenia F20.0 ; Posttraumatic stress disorder F43.10 ; Attention deficit hyperactivity disorder (ADHD), inattentive type, 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 and Borderline personality disorder F60.3 [facility] [address] [id number] [address] [place] [address] Jan, Paranoid schizophrenia F20.0 [facility] [address] [id number] [address] [place] [address] Jan, Paranoid schizophrenia F20.0 [facility] [address] [facility] [id number] [address] [place] [address] Jan, Paranoid schizophrenia F20.0 ; Posttraumatic stress disorder F43.10 ; Attention deficit hyperactivity disorder (ADHD), inattentive type, 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 and Borderline personality disorder F60.3 [facility] [address] [id number] [address] [place] [address] Dec, [facility] [address] [id number] [address] [place] [address] Nov, Paranoid schizophrenia F20.0 ; Posttraumatic stress disorder F43.10 ; Attention deficit hyperactivity disorder (ADHD), inattentive type, 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 and Borderline personality disorder F60.3 [facility] [address] [id number] [address] [place] [address] Nov, [facility] [address] [id number] [address] [place] [address] Oct, Paranoid schizophrenia F20.0 [facility] [address] [facility] [id number] [address] [place] [address] Oct, Paranoid schizophrenia F20.0 ; Posttraumatic stress disorder F43.10 ; Attention deficit hyperactivity disorder (ADHD), inattentive type, 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 ; Borderline personality disorder F60.3 and Other group home (current) drug therapy Z79.899 [facility] [address] [id number] [address] [place] [address] Oct, [facility] [address] [facility] [id number] [address] [place] [address] Oct, [facility] [address] [id number] [address] [place] [address] Sep, [facility] [address] [id number] [address] [place] [address] Sep, Paranoid schizophrenia F20.0 ; Posttraumatic stress disorder F43.10 ; Attention deficit hyperactivity disorder (ADHD), inattentive type, 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 and Borderline personality disorder F60.3 [facility] [address] [facility] [id number] [address] [place] [address] Sep, Paranoid schizophrenia F20.0 [facility] [address] [id number] [address] [place] [address] Aug, Paranoid schizophrenia F20.0 ; Posttraumatic stress disorder F43.10 ; Attention deficit hyperactivity disorder (ADHD), inattentive type, 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 and Borderline personality disorder F60.3 [facility] [address] [facility] [id number] [address] [place] [address] Aug, Paranoid schizophrenia F20.0 ; Posttraumatic stress disorder F43.10 ; Attention deficit hyperactivity disorder (ADHD), inattentive type, 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 and Borderline personality disorder F60.3 [facility] [address] [id number] [address] [place] [address] Aug, [facility] [address] [facility] [id number] [address] [place] [address] Jul, Paranoid schizophrenia F20.0 ; Posttraumatic stress disorder F43.10 ; Attention deficit hyperactivity disorder (ADHD), inattentive type, 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 and Borderline personality disorder F60.3 [facility] [address] [id number] [address] [place] [address] Jul, Paranoid schizophrenia F20.0 [facility] [address] [id number] [address] [place] [phone] Jul, Paranoid schizophrenia F20.0 ; Posttraumatic stress disorder F43.10 ; Attention deficit hyperactivity disorder (ADHD), inattentive type, 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 and Borderline personality disorder F60.3 [facility] [address] [id number] [address] [place] [address] Jun, Paranoid schizophrenia F20.0 ; Posttraumatic stress disorder F43.10 ; Attention deficit hyperactivity disorder (ADHD), inattentive type, 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 and Borderline personality disorder F60.3 [facility] [address] [id number] [address] [place] [address] May, Other group home (current) dr ug therapy Z79.899 [facility] [address] [id number] [address] [place] [address] May, [facility] [address] [id number] [address] [place] [address] May, [facility] [address] [facility] [id number] [address] [place] [address] May, Attention deficit hyperactiv ity disorder (ADHD), inattentive type, mild F90.0 [facility] [address] [facility] [id number] [address] [place] [address] May, [facility] [address] [id number] [address] [place] [address] May, Attention deficit hyperactiv ity disorder (ADHD), inattentive type, mild F90.0 [facility] [address] [id number] [address] [place] [address] May, Paranoid schizophrenia F20.0 ; Posttraumatic stress disorder F43.10 ; Attention deficit hyperactivity disorder (ADHD), inattentive type, 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 and Other group home (current) drug therapy Z79.899 [facility] [address] [id number] [address] [place] [address] Apr, Paranoid schizophrenia F20.0 [facility] [address] [id number] [address] [place] [address] Apr, Paranoid schizophrenia F20.0 ; Posttraumatic stress disorder F43.10 and Attention deficit hyperactivity disorder (ADHD), inattentive type, 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 [facility] [address] [id number] [address] [place] [address] February, [facility] [address] [id number] [address] [place] [address] February, Paranoid schizophrenia F20.0 ; Posttraumatic stress disorder F43.10 and Attention deficit hyperactivity disorder (ADHD), inattentive type, 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 [facility] [address] [id number] [address] [place] [address] February, Paranoid schizophrenia F20.0 ; Posttraumatic stress disorder F43.10 and Attention deficit hyperactivity disorder (ADHD), inattentive type, 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 [facility] [address] [id number] [address] [place] [address] Jan, Paranoid schizophrenia F20.0 ; Posttraumatic stress disorder F43.10 and Attention deficit hyperactivity disorder (ADHD), inattentive type, 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 [facility] [address] [id number] [address] [place] [id number] Dec, Dental examination Z01.20 [facility] [address] [id number] [address] [place] [id number] Nov, Dental examination Z01.20 [facility] [address] [id number] [address] [place] [id number] Nov, Dental examination Z01.20 [facility] [address] [id number] [address] [place] [address] [id number] Nov, Dental caries K02.9 [facility] [address] [id number] [address] [place] [address] Nov, High risk medication use Z79 .899 [facility] [address] [id number] [address] [place] [address] Nov, Paranoid schizophrenia F20.0 ; Posttraumatic stress disorder F43.10 ; Attention deficit hyperactivity disorder (ADHD), inattentive type, 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 and Borderline personality disorder in adult F60.3 [facility] [address] [id number] [address] [place] [id number] Oct, Dental caries K02.9 [facility] [address] [id number] [address] [place] [address] Sep, Paranoid schizophrenia F20.0 ; Posttraumatic stress disorder F43.10 and Attention deficit hyperactivity disorder (ADHD), inattentive type, 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 [facility] [address] [id number] [address] [place] [address] Aug, Paranoid schizophrenia F20.0 ; Posttraumatic stress disorder F43.10 and Attention deficit hyperactivity disorder (ADHD), inattentive type, 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 [facility] [address] [id number] [address] [place] [address] Aug, Strep throat J02.0 and Cough R05 [facility] [address] [id number] [address] [place] [phone] Aug, [facility] [address] [id number] [address] [place] [phone] 24 Jul, 2016 Paranoid schizophrenia F20.0 ; Posttraumatic stress disorder F43.10 and Attention deficit hyperactivity disorder (ADHD), inattentive type, 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 [facility] [address] [id number] [address] [place] [address] Jul, [facility] [address] [id number] [address] [place] [address] Jun, Paranoid schizophrenia F20.0 ; Posttraumatic stress disorder F43.10 and Attention deficit hyperactivity disorder (ADHD), inattentive type, 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 [facility] [address] [id number] [address] [place] [address] [id number] Jun, Dental examination Z01.20 [facility] [address] [id number] [address] [place] [phone] Jun, [facility] [address] [id number] [address] [place] [address] May, Paranoid schizophrenia F20.0 [facility] [address] [id number] [address] [place] [id number] May, Paranoid schizophrenia F20.0 ; Posttraumatic stress disorder F43.10 and Attention deficit hyperactivity disorder (ADHD), inattentive type, 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 [facility] [address] [id number] [address] [place] [address] May, [facility] [address] [id number] [address] [place] [address] May, Paranoid schizophrenia F20.0 [facility] [address] [id number] [address] [place] [address] May, [facility] [address] [id number] [address] [place] [address] May, Paranoid schizophrenia F20.0 [facility] [address] [id number] [address] [place] [address] May, Schizoaffective disorder, un specified F25.9 [facility] [address] [id number] [address] [place] [address] May, Schizoaffective disorder, un specified F25.9 [facility] [address] [id number] [address] [place] [address] May, [facility] [address] [id number] [address] [place] [address] May, Paranoid schizophrenia F20.0 [facility] [address] [id number] [address] [place] [address] May, Paranoid schizophrenia F20.0 ; Posttraumatic stress disorder F43.10 and Attention deficit hyperactivity disorder (ADHD), inattentive type, 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 [facility] [address] [id number] [address] [place] [address], [place] [address] Mar, [facility] [address] [id number] [facility] [place] [address] Mar, Paranoid schizophrenia F20.0 ; Posttraumatic stress disorder F43.10 and Attention deficit hyperactivity disorder (ADHD), inattentive type, 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 [facility] [address] [id number] [address] [place] [address], [place] [address] Mar, Paranoid schizophrenia F20.0 [facility] [address] [id number] [address] [place] [address], [place] [address] Mar, Paranoid schizophrenia F20.0 ; Attention deficit hyperactivity disorder (ADHD), inattentive type, 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 and Posttraumatic stress disorder F43.10 [facility] [address] [id number] [address] [place] [address] Mar, [facility] [address] [id number] [address] [place] [address], [place] [address] Mar, Paranoid schizophrenia F20.0 ; Posttraumatic stress disorder F43.10 and Attention deficit hyperactivity disorder (ADHD), inattentive type, 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 [facility] [address] [id number] [address] [place] [address], [place] [address] February, [facility] [address] [id number] [address] [place] [address] February, [facility] [address] [id number] [address] [place] [address], [place] [address] February, [facility] [address] [id number] [address] [place] [address] February, [facility] [address] [id number] [address] [place] [address], [place] [address] Jan, Paranoid schizophrenia F20.0 [facility] [address] [id number] [address] [place] [address] [id number] Jan, Dental examination Z01.20 [facility] [address] [id number] [address] [place] [address] [id number] Jan, Dental caries K02.9 [facility] [address] [id number] [address] [place] [address] [id number] Jan, Dental examination Z01.20 [facility] [address] [id number] [address] [place] [id number] Dec, Encounter for dental examina tion Z01.20 [facility] [address] [id number] [address] [place] [phone] Dec, Paranoid schizophrenia F20.0 [facility] [address] [id number] [address] [place] [address] [id number] Dec, Dental examination Z01.20 [facility] [address] [id number] [address] [place] [id number] Dec, [facility] [address] [id number] [address] [place] [phone] Dec, Paranoid schizophrenia F20.0 ; Posttraumatic stress disorder F43.10 and Attention deficit hyperactivity disorder (ADHD), inattentive type, 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 [facility] [address] [id number] [address] [place] [address] Nov, Schizoaffective disorder, un specified F25.9 [facility] [address] [id number] [address] [place] [address] Oct, Paranoid schizophrenia F20.0 [facility] [address] [id number] [address] [place] [phone] Oct, [facility] [address] [id number] [address] [place] [phone] Sep, Paranoid schizophrenia F20.0 ; Posttraumatic stress disorder F43.10 and Attention deficit hyperactivity disorder (ADHD), inattentive type, 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 [facility] [address] [id number] [address] [place] [address] Sep, [facility] [address] [facility] [id number] [address] [place], [place] [address] Sep, Paranoid schizophrenia F20.0 ; Posttraumatic stress disorder F43.10 and Attention deficit hyperactivity disorder (ADHD), inattentive type, 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 [facility] [address] [facility] [id number] [address] [place] [address] Aug, Paranoid schizophrenia F20.0 [facility] [address] [facility] [id number] [address] [place] [phone] Aug, [facility] [address] [facility] [id number] [address] [place] [address] Aug, Posttraumatic stress disorde r F43.10 ; Paranoid schizophrenia F20.0 and Attention deficit hyperactivity disorder (ADHD), inattentive type, 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 [facility] [address] [facility] [id number] [address] [place] [address] Jul, Bipolar disorder, unspecifie d F31.9 [facility] [address] [facility] [id number] [address] [place] [address] Jul, [facility] [address] [facility] [id number] [address] [place] [address] Jun, [facility] [address] [facility] [id number] [address] [place] [address] Jun, Schizoaffective disorder, ch ronic 295.72 ; Posttraumatic stress disorder 309.81 and Attention deficit disorder of childhood without mention of hyperactivity 314.00 [facility] [address] [facility] [id number] [address] [place] [address] May, [facility] [address] [facility] [id number] [address] [place] [address] May, [facility] [address] [facility] [id number] [address] [place] [address] May, Schizoaffective disorder, ch ronic 295.72 ; Posttraumatic stress disorder 309.81 ; Attention deficit disorder of childhood without mention of hyperactivity 314.00 and Bipolar disorder, unspecified 296.80 [facility] [address] [facility] [id number] [address] [place] [address] Apr, Schizoaffective disorder, ch ronic 295.72 [facility] [address] [facility] [id number] [address] [place] [address] Apr, [facility] [address] [id number] [address] [place] [address] Apr, Schizoaffective disorder, ch ronic 295.72 ; Posttraumatic stress disorder 309.81 and Attention deficit disorder of childhood without mention of hyperactivity 314.00 [facility] [address] [facility] [id number] [address] [place] [address] Mar, Disorganized schizophrenia, 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 [facility] [address] [facility] [id number] [address] [place] [address] Mar, [facility] [address] [facility] [id number] [address] [place] [address] Mar, [facility] [address] [facility] [id number] [address] [place] [address] Mar, [facility] [address] [facility] [id number] [address] [place] [address] Mar, [facility] [address] [facility] [id number] [address] [place] [address] February, Schizoaffective disorder, ch ronic 295.72 [facility] [address] [facility] [id number] [address] [place] [address] February, [facility] [address] [facility] [id number] [address] [place] [address] February, Attention 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 ; Posttraumatic stress disorder 309.81 and Schizoaffective disorder, chronic 295.72 [facility] [address] [id number] [address] [place] [address], [place] [address] 29 Jan, 2015 [facility] [address] [id number] [address] [place] [address], [place] [address] 14 Jan, 2015 [facility] [address] [id number] [address] [place] [address], [place] [address] Jan, [facility] [address] [id number] [address] [place] [address], [place] [address] Dec, [facility] [address] [id number] [address] [place] [address], [place] [address] Dec, [facility] [address] [id number] [address] [place] [address], [place] [address] Dec, [facility] [address] [id number] [address] [place] [address], [place] [address] Dec, [facility] [address] [id number] [address] [place] [address], [place] [address] Dec, [facility] [address] [id number] [address] [place] [address], [place] [address] Dec, [facility] [address] [id number] [address] [place] [address], [place] [address] Dec, [facility] [address] [id number] [address] [place] [address], [place] [address] Dec, [facility] [address] [id number] [address] [place] [address], [place] [address] Nov, [facility] [address] [id number] [address] [place] [address], [place] [address] Nov, [facility] [address] [id number] [address] [place] [address], [place] [address] Nov, [facility] [address] [id number] [address] [place] [address], [place] [address] Nov, [facility] [address] [id number] [address] [place] [address], [place] [address] Nov, [facility] [address] [id number] [address] [place] [address], [place] [address] Nov, [facility] [address] [id number] [address] [place] [address], [place] [address] Nov, [facility] [address] [id number] [address] [place] [address], [place] [address] Nov, [facility] [address] [id number] [address] [place] [address], [place] [address] Nov, [facility] [address] [id number] [address] [place] [address], [place] [address] Nov, [facility] [address] [id number] [address] [place] [address], [place] [address] Oct, [facility] [address] [id number] [address] [place] [address], [place] [address] Oct, [facility] [address] [id number] [address] [place] [address], [place] [address] Oct, [facility] [address] [id number] [address] [place] [address], [place] [address] Oct, [facility] [address] [id number] [address] [place] [address], [place] [address] Oct, [facility] [address] [id number] [address] [place] [address], [place] [address] Oct, [facility] [address] [id number] [address] [place] [address], [place] [address] Oct, [facility] [address] [id number] [address] [place] [address], [place] [address] Sep, [facility] [address] [id number] [address] [place] [address], [place] [address] Sep, [facility] [address] [id number] [address] [place] [address], [place] [address] Sep, [facility] [address] [id number] [address] [place] [address], [place] [address] 15 Sep, 2014 [facility] [address] [id number] [address] [place] [address], [place] [address] Aug, [facility] [address] [id number] [address] [place] [address], [place] [address] Aug, [facility] [address] [id number] [address] [place] [address], [place] [address] Aug, [facility] [address] [id number] [address] [place] [address], [place] [address] Aug, [facility] [address] [id number] [address] [place] [address], [place] [address] Aug, [facility] [address] [id number] [address] [place] [address], [place] [address] Aug, [facility] [address] [id number] [address] [place] [address], [place] [address] Jul, [facility] [address] [id number] [address] [place] [address], [place] [address] 29 Jul, 2014 [facility] [address] [id number] [address] [place] [address], [place] [address] 24 Jul, 2014 [facility] [address] [id number] [address] [place] [address], [place] [address] 24 Jul, 2014 [facility] [address] [id number] [address] [place] [address], [place] [address] 15 Jul, 2014 [facility] [address] [id number] [address] [place] [address], [place] [address] 15 Jul, 2014 [facility] [address] [id number] [address] [place] [address], [place] [address] 27 Jun, 2014 [facility] [address] [id number] [address] [place] [address], [place] [address] 27 Jun, 2014 [facility] [address] [id number] [address] [place] [address], [place] [address] Jun, 2013 [facility] [address] [id number] [facility] [place] [address] 26 Jun, 2013 [facility] [address] [id number] [facility] [place] [address] Jun, 2013 [facility] [address] [id number] [address] [place] [address], [place] [address] Jun, 2013 [facility] [address] [id number] [address] [place] [address], [place] [address] 16 Jun, 2013 [facility] [address] [id number] [address] [place] [address], [place] [address] 16 Jun, 2013 [facility] [address] [id number] [address] [place] [address], [place] [address] Jun, 2013 [facility] [address] [id number] [address] [place] [address], [place] [address] Jun, 2013 [facility] [address] [id number] [address] [place] [address], [place] [address] Jun, [facility] [address] [id number] [address] [place] [address], [place] [address] May, [facility] [address] [id number] [address] [place] [address], [place] [address] May, [facility] [address] [id number] [address] [place] [address], [place] [address] May, [facility] [address] [id number] [address] [place] [address], [place] [address] May, [facility] [address] [id number] [address] [place] [address], [place] [address] May, [facility] [address] [id number] [address] [place] [address], [place] [address] May, [facility] [address] [id number] [address] [place] [address], [place] [address] May, [facility] [address] [id number] [address] [place] [address], [place] [address] May, [facility] [address] [id number] [address] [place] [address], [place] [address] May, [facility] [address] [id number] [address] [place] [address], [place] [address] May, [facility] [address] [id number] [address] [place] [address], [place] [address] Apr, [facility] [address] [id number] [address] [place] [address], [place] [address] Apr, [facility] [address] [id number] [address] [place] [address], [place] [address] Apr, [facility] [address] [id number] [address] [place] [address], [place] [address] Apr, [facility] [address] [id number] [address] [place] [address], [place] [address] Apr, [facility] [address] [id number] [address] [place] [address], [place] [address] Apr, [facility] [address] [id number] [address] [place] [address], [place] [address] Apr, [facility] [address] [id number] [address] [place] [address], [place] [address] Apr, [facility] [address] [id number] [address] [place] [address], [place] [address] Apr, [facility] [address] [id number] [address] [place] [address], [place] [address] Apr, [facility] [address] [id number] [address] [place] [address], [place] [address] Mar, [facility] [address] [id number] [address] [place] [address], [place] [address] Mar, [facility] [address] [id number] [address] [place] [address], [place] [address] Mar, [facility] [address] [id number] [address] [place] [address], [place] [address] Mar, [facility] [address] [id number] [address] [place] [address], [place] [address] Mar, [facility] [address] [id number] [address] [place] [address], [place] [address] Mar, [facility] [address] [id number] [address] [place] [address], [place] [address] Mar, [facility] [address] [id number] [address] [place] [address], [place] [address] Mar, [facility] [address] [id number] [address] [place] [address], [place] [address] Mar, [facility] [address] [id number] [address] [place] [address], [place] [address] Mar, [facility] [address] [id number] [address] [place] [address], [place] [address] Mar, [facility] [address] [id number] [address] [place] [address], [place] [address] Mar, [facility] [address] [id number] [address] [place] [address], [place] [address] Mar, [facility] [address] [id number] [address] [place] [address], [place] [address] Mar, [facility] [address] [id number] [address] [place] [address], [place] [address] Mar, [facility] [address] [id number] [address] [place] [address], [place] [address] Mar, [facility] [address] [id number] [address] [place] [address], [place] [address] Mar, [facility] [address] [id number] [address] [place] [address], [place] [address] 09 Mar, 2014 [facility] [address] [id number] [address] [place] [address], [place] [address] Mar, [facility] [address] [id number] [facility] [place] [address] Mar, [facility] [address] [id number] [address] [address], [place] [address] February, [facility] [address] [id number] [address] [address], [place] [address] February, [facility] [address] [id number] [address] [place] [address], [place] [address] February, [facility] [address] [id number] [address] [place] [address], [place] [address] February, [facility] [address] [id number] [address] [place] [address], [place] [address] February, [facility] [address] [id number] [address] [place] [address], [place] [address] February, [facility] [address] [id number] [address] [place] [address], [place] [address] February, [facility] [address] [id number] [address] [place] [address], [place] [address] February, [facility] [address] [id number] [address] [place] [address], [place] [address] February, [facility] [address] [id number] [address] [place] [address], [place] [address] February, [facility] [address] [id number] [address] [place] [address], [place] [address] February, [facility] [address] [id number] [address] [place] [address], [place] [address] February, [facility] [address] [id number] [address] [place] [address], [place] [address] February, [facility] [address] [id number] [address] [place] [address], [place] [address] February, [facility] [address] [id number] [address] [place] [address], [place] [address] February, [facility] [address] [id number] [address] [place] [address], [place] [address] February, [facility] [address] [id number] [address] [place] [address], [place] [address] February, [facility] [address] [id number] [address] [place] [address], [place] [address] February, [facility] [address] [id number] [address] [place] [address], [place] [address] February, [facility] [address] [id number] [address] [place] [address], [place] [address] February, [facility] [address] [id number] [address] [place] [address], [place] [address] February, [facility] [address] [id number] [address] [address], [place] [address] Jan, [facility] [address] [id number] [address] [place] [address], [place] [address] Jan, [facility] [address] [id number] [address] [place] [address], [place] [address] Jan, [facility] [address] [id number] [address] [place] [address], [place] [address] Jan, [facility] [address] [id number] [address] [place] [address], [place] [address] Jan, [facility] [address] [id number] [address] [place] [address], [place] [address] Jan, [facility] [address] [id number] [address] [place] [address], [place] [address] Jan, [facility] [address] [id number] [address] [place] [address], [place] [address] Jan, [facility] [address] [id number] [address] [place] [address], [place] [address] Dec, [facility] [address] [id number] [facility] [place] [address] 20 Dec, 2013 [facility] [address] [id number] [facility] [place] [address] 20 Dec, 2013 [facility] [address] [id number] [facility] [place] [address] 19 Dec, 2013 [facility] [address] [id number] [address] [place] [address], [place] [address] 19 Dec, 2013 [facility] [address] [id number] [address] [place] [address], [place] [address] 15 Dec, 2013 [facility] [facility] [address] [id number] [address] [place] [address], [place] [address] 15 Dec, 2013 [facility] [address] [id number] [address] [place] [address], [place] [address] 11 Dec, 2013 [facility] [place] [facility] [address] [id number] [address] [place] [address], [place] [address] 10 Dec, 2013 [facility] [place] [facility] [address] [id number] [address] [place] [address], [place] [address] 10 Dec, 2013 [facility] [place] [facility] [address] [id number] [address] [place] [address], [place] [address] 18 Nov, 2013 [facility] [place] [facility] [address] [id number] [address] [place] [address], [place] [address] 17 Nov, 2013 [facility] [place] [facility] [address] [id number] [address] [place] [address], [place] [address] Nov, [facility] [place] [facility] [address] [id number] [address] [place] [address], [place] [address] 05 Nov, 2013 [facility] [place] [facility] [address] [id number] [address] [place] [address], [place] [address] 05 Nov, 2013 [facility] [place] [facility] [address] [id number] [address] [place] [address], [place] [address] Oct, [facility] [place] [facility] [address] [id number] [address] [place] [address] Oct, [facility] [address] [id number] [address] [place] [address], [place] [address] Oct, [facility] [address] [id number] [address] [place] [address], [place] [address] Sep, [facility] [address] [id number] [address] [place] [address], [place] [address] Sep, [facility] [address] [id number] [address] [place] [address], [place] [address] Sep, [facility] [address] [id number] [address] [place] [address], [place] [address] Sep, [facility] [address] [id number] [address] [place] [address], [place] [address] Aug, [facility] [address] [id number] [address] [place] [address], [place] [address] Aug, [facility] [address] [id number] [address] [place] [address], [place] [address] Jul, [facility] [address] [id number] [address] [place] [address], [place] [address] Jul, [facility] [address] [id number] [address] [place] [address], [place] [address] Jul, [facility] [address] [id number] [address] [place] [address], [place] [address] Jul, [facility] [address] [id number] [address] [place] [address], [place] [address] Jul, [facility] [address] [id number] [address] [place] [address], [place] [address] Jun, [facility] [address] [id number] [address] [place] [address], [place] [address] Jun, [facility] [address] [id number] [address] [place] [address], [place] [address] 19 Jun, 2013 [facility] [place] [facility] [address] [id number] [address] [place] [address], [place] [address] 18 Jun, 2013 [facility] [address] [id number] [address] [place] [address], [place] [address] 16 Jun, 2013 [facility] [address] [id number] [address] [place] [address], [place] [address] 12 Jun, 2013 [facility] [address] [id number] [address] [place] [address], [place] [address] 11 Jun, 2013 [facility] [address] [id number] [address] [place] [address], [place] [address] 30 May, 2013 [facility] [address] [id number] [address] [place] [address], [place] [address] May, [facility] [address] [id number] [address] [place] [address], [place] [address] Apr, [facility] [address] [id number] [address] [place] [address], [place] [address] Apr, [facility] [address] [id number] [address] [place] [address], [place] [address] Apr, [facility] [address] [id number] [address] [place] [address], [place] [address] Mar, [facility] [address] [id number] [address] [place] [address], [place] [address] Mar, [facility] [address] [id number] [address] [place] [address], [place] [address] February, [facility] [address] [id number] [address] [place] [address], [place] [address] February, [facility] [address] [id number] [address] [place] [address], [place] [address] February, [facility] [address] [id number] [address] [address], [place] [address] February, [facility] [address] [id number] [address] [place] [address], [place] [address] 19 Jan, 2013 [facility] [address] [id number] [address] [place] [address], [place] [address] 17 Jan, 2013 [facility] [address] [id number] [address] [place] [address], [place] [address] 16 Jan, 2013 [facility] [address] [id number] [address] [place] [address], [place] [address] 29 Dec, 2012 [facility] [address] [id number] [address] [place] [address], [place] [address] Dec, [facility] [address] [id number] [address] [place] [address], [place] [address] Dec, [facility] [address] [id number] [address] [place] [address], [place] [address] 08 Dec, 2012 [facility] [address] [id number] [address] [place] [address], [place] [address] Nov, [facility] [address] [id number] [address] [place] [address], [place] [address] Nov, [facility] [address] [id number] [address] [place] [address], [place] [address] Oct, [facility] [address] [id number] [address] [place] [address], [place] [address] Oct, [facility] [address] [id number] [address] [place] [address], [place] [address] Oct, [facility] [address] [id number] [address] [place] [address], [place] [address] Oct, [facility] [address] [id number] [address] [place] [address], [place] [address] Aug, [facility] [address] [id number] [address] [place] [address], [place] [address] Aug, [facility] [address] [id number] [address] [place] [address], [place] [address] 18 Jun, 2012 [facility] [address] [id number] [facility] [place] [address] May, [facility] [address] [id number] [address] [place] [address], [place] [address] May, [facility] [address] [id number] [address] [place] [address], [place] [address] Apr, [facility] [address] [id number] [address] [place] [address], [place] [address] Apr, [facility] [address] [id number] [address] [place] [address], [place] [address] Apr, [facility] [address] [id number] [address] [place] [address], [place] [address] Mar, [facility] [address] [id number] [address] [place] [address], [place] [address] Mar, [facility] [address] [id number] [address] [place] [address], [place] [address] Mar, [facility] [address] [id number] [address] [place] [address], [place] [address] Mar, [facility] [address] [id number] [address] [place] [address], [place] [address] Mar, [facility] [address] [id number] [address] [place] [address], [place] [address] February, [facility] [address] [id number] [address] [place] [address], [place] [address] February, [facility] [address] [id number] [address] [place] [address], [place] [address] February, [facility] [address] [id number] [address] [place] [address], [place] [address] February, [facility] [address] [id number] [address] [place] [address], [place] [address] February, [facility] [address] [id number] [address] [place] [address], [place] [address] February, [facility] [address] [id number] [address] [place] [address], [place] [address] February, [facility] [address] [id number] [address] [place] [address], [place] [address] Jan, [facility] [address] [id number] [address] [place] [address], [place] [address] Jan, [facility] [address] [id number] [address] [place] [address], [place] [address] 17 Jan, 2012 [facility] [address] [id number] [address] [place] [address], [place] [address] Jan, [facility] [address] [id number] [address] [place] [address], [place] [address] Jan, [facility] [address] [id number] [address] [place] [address], [place] [address] Jan, [facility] [address] [id number] [address] [place] [address], [place] [address] 30 Dec, 2011 [facility] [address] [id number] [address] [place] [address], [place] [address] 24 Dec, 2011 [facility] [address] [id number] [address] [place] [address], [place] [address] Dec, [facility] [address] [id number] [address] [place] [address], [place] [address] Dec, [facility] [address] [id number] [address] [place] [address], [place] [address] Dec, [facility] [address] [id number] [address] [place] [address], [place] [address] Nov, [facility] [address] [id number] [address] [place] [address], [place] [address] Nov, [facility] [address] [id number] [address] [place] [address], [place] [address] Nov, [facility] [address] [id number] [address] [place] [address], [place] [address] 14 Nov, 2011 [facility] [address] [id number] [address] [place] [address], [place] [address] 10 Nov, 2011 [facility] [address] [id number] [address] [place] [address], [place] [address] Nov, [facility] [address] [id number] [address] [place] [address], [place] [address] Oct, [facility] [address] [id number] [address] [place] [address], [place] [address] Oct, [facility] [address] [id number] [address] [place] [address], [place] [address] Oct, [facility] [address] [id number] [address] [place] [address], [place] [address] Oct, [facility] [address] [id number] [address] [place] [address], [place] [address] Oct, [facility] [address] [id number] [address] [place] [address], [place] [address] Sep, [facility] [address] [id number] [address] [place] [address], [place] [address] Sep, [facility] [address] [id number] [address] [place] [address], [place] [address] Sep, [facility] [address] [id number] [address] [place] [address], [place] [address] 14 Sep, 2011 [facility] [address] [id number] [address] [place] [address], [place] [address] 14 Sep, 2011 [facility] [address] [id number] [address] [place] [address], [place] [address] 13 Sep, 2011 [facility] [address] [id number] [address] [place] [address], [place] [address] 12 Sep, 2011 [facility] [address] [id number] [address] [place] [address], [place] [address] Sep, [facility] [address] [id number] [address] [place] [address], [place] [address] Sep, [facility] [address] [id number] [address] [place] [address], [place] [address] Aug, [facility] [address] [id number] [address] [place] [address], [place] [address] Aug, [facility] [address] [id number] [address] [place] [address], [place] [address] Aug, [facility] [address] [id number] [address] [place] [address], [place] [address] Aug, [facility] [address] [id number] [address] [place] [address], [place] [address] Aug, [facility] [address] [id number] [address] [place] [address], [place] [address] Aug, [facility] [address] [id number] [address] [place] [address], [place] [address] Aug, [facility] [address] [id number] [address] [place] [address], [place] [address] Aug, [facility] [address] [id number] [address] [place] [address], [place] [address] Aug, [facility] [address] [id number] [address] [place] [address], [place] [address] Aug, [facility] [address] [id number] [address] [place] [address], [place] [address] Aug, [facility] [address] [id number] [address] [place] [address], [place] [address] Aug, [facility] [address] [id number] [address] [place] [address], [place] [address] Jul, [facility] [address] [id number] [address] [place] [address], [place] [address] Jul, [facility] [address] [id number] [address] [place] [address] Jul, [facility] [address] [id number] [address] [place] [address] Jul, [facility] [address] [id number] [address] [place] [address] Jul, [facility] [address] [id number] [address] [place] [address] Jul, [facility] [address] [id number] [address] [place] [address] Jul, [facility] [address] [id number] [address] [place] [address] Jul, [facility] [address] [id number] [address] [place] [address] Jul, [facility] [address] [id number] [address] [place] [address] Jul, [facility] [address] [id number] [address] [place] [address] Nov, [facility] [address] [id number] [address] [place] [address] Aug, [facility] [address] [id number] [address] [place] [address] Aug, [facility] [address] [id number] [address] [place] [address] Aug, [facility] [address] [id number] [address] [place] [address] Aug, [facility] [address] [id number] [address] [place] [phone] Jul, IMMUNIZATIONS No Known Immunizations SOCIAL HISTORY Never Assessed REASON FOR VISIT EMR-[facility] [place] PLAN OF CARE [...] attempt by hanging 2015 Hospitalization History [facility] 01/30/2018-02/10/20 08 [facility]ization History [facility] 05[facility]04/18-
--- OUTSIDE RECORDS SUMMARY | 2020-04-04 02:39 | XMS REPORT | Continuity of Care Document ---
Demographics Preferred Language Unknown Marital Status Unknown Rastafari Affiliation Unknown Race Unknown Ethnic Group Unknown Author Organization Unknown Address Unknown Phone Unavailable Allergies Active Description Code Type Severity Reaction Onset Reported/Identified Relationship to Patient Clinical Status Yes cefuroxime [id number] Drug Allerg y Severe RASH 12/14/2005 Yes Penicillins [id number] Drug Aller gy Severe RASH 12/14/2005 Yes amoxicillin [id number] Drug Aller gy Severe sob, rash 11/01/2010 Yes any cillin OA N/A N/A 02/26/2011 Yes Biaxin Drug Allergy N/A N/A 02/26/2011 Yes Ceftin Drug Allergy N/A N/A 02/26/2011 Yes Latuda Drug Allergy N/A N/A 02/26/2011 Yes any cillin OA 02/26/2011 Yes Biaxin Drug Allergy 02/26/2011 Yes Ceftin Drug Allergy 02/26/2011 Yes Latuda Drug Allergy 02/26/2011 Yes Cymbalta 30 mg Capsule, Delayed Release( E.C.) Drug Allergy N/A N/A 07/2012 Yes Cymbalta 30 mg Capsule, Delayed Release( E.C.) Drug Allergy 12/[id number] gabriel Allergy Mild nausea and dizz 02/07/2014 Yes [...] APRN 301.83 PD BORDERLINE 07/17/2010 295.70 P S CHIZO AFFECTIVE 07/17/2010 301.83 PD BORDERLINE 07/17/2010 AFUA FINLEY APRN 295.70 P SCHIZO AFFECTIVE 07/17/2010 AFUA FINLEY APRN 301.83 PD BORDERLINE 07/17/2010 295.70 P S CHIZO AFFECTIVE 07/17/2010 301.83 PD BORDERLINE 07/17/2010 FINLEY DOWEL MACHINE OPERATOR, AFUA BOSWELL 295.70 P SCHIZO AFFECTIVE 07/17/2010 FINLEY DOWEL MACHINE OPERATOR, AFUA BOSWELL 301.83 PD BORDERLINE 07/17/2010 295.70 P S CHIZO AFFECTIVE 07/17/2010 301.83 PD BORDERLINE 07/17/2010 295.70 P S CHIZO AFFECTIVE 07/17/2010 301.83 PD BORDERLINE 07/17/2010 295.70 P S CHIZO AFFECTIVE 07/17/2010 301.83 PD BORDERLINE 07/17/2010 295.70 P S CHIZO AFFECTIVE 07/17/2010 301.83 PD BORDERLINE 07/17/2010 295.70 P S CHIZO AFFECTIVE 07/17/2010 301.83 PD BORDERLINE 07/17/2010 295.70 P S CHIZO AFFECTIVE 07/17/2010 301.83 PD BORDERLINE 07/17/2010 295.70 P S CHIZO AFFECTIVE 07/17/2010 301.83 PD BORDERLINE 07/17/2010 FINLEY DOWEL MACHINE OPERATOR, AFUA LIZAMAH 295.70 P SCHIZO AFFECTIVE 07/17/2010 FINLEY DOWEL MACHINE OPERATOR, AFUA LIZAMAH 301.83 PD BORDERLINE 07/17/2010 FINLEY DOWEL MACHINE OPERATOR, AFUA LIZAMAH 295.70 P SCHIZO AFFECTIVE 07/17/2010 FINLEY DOWEL MACHINE OPERATOR, AUFA LIZAMAH 301.83 PD BORDERLINE 07/17/2010 FINLEY DOWEL MACHINE OPERATOR, AFUA LIZAMAH 295.70 P SCHIZO AFFECTIVE 07/17/2010 FINLEY DOWEL MACHINE OPERATOR, AFUA LIZAMAH 301.83 PD BORDERLINE 07/17/2010 FINLEY DOWEL MACHINE OPERATOR, AFUA LIZAMAH 295.70 P SCHIZO AFFECTIVE 07/17/2010 FINLEY DOWEL MACHINE OPERATOR, AFUA LIZAMAH 301.83 PD BORDERLINE 07/17/2010 FINLEY DOWEL MACHINE OPERATOR, AFUA LIZAMAH 295.70 P SCHIZO AFFECTIVE 07/17/2010 FINLEY DOWEL MACHINE OPERATOR, AFUA LIZAMAH 301.83 PD BORDERLINE 07/17/2010 FINLEY DOWEL MACHINE OPERATOR, AFUA LIZAMAH 295.70 P SCHIZO AFFECTIVE 07/17/2010 FINLEY DOWEL MACHINE OPERATOR, AFUA LIZAMAH 301.83 PD BORDERLINE 07/17/2010 FINLEY DOWEL MACHINE OPERATOR, AFUA LIZAMAH 295.70 P SCHIZO AFFECTIVE 07/17/2010 FINLEY DOWEL MACHINE OPERATOR, AFUA BOSWELL 301.83 PD BORDERLINE 07/17/2010 FINLEY DOWEL MACHINE OPERATOR, AFUA BOSWELL 295.70 P SCHIZO AFFECTIVE 07/17/2010 FINLEY DOWEL MACHINE OPERATOR, AFUA BOSWELL 301.83 PD BORDERLINE 07/17/2010 FINLEY DOWEL MACHINE OPERATOR, AFUA BOSWELL 295.70 P SCHIZO AFFECTIVE 07/17/2010 FINLEY DOWEL MACHINE OPERATOR, AFUA BOSWELL 301.83 PD BORDERLINE 07/17/2010 LILA DOWEL MACHINE OPERATOR, BRYAN 295 .70 P SCHIZO AFFECTIVE 07/17/2010 LILA DOWEL MACHINE OPERATOR, BRYAN 301 .83 PD BORDERLINE 07/17/2010 VYAS DO, ALVARO K 295.70 P SCHIZO AFFECTIVE 07/17/2010 VYAS DO, ALVARO K 301.83 PD BORDERLINE 07/17/2010 LILA DOWEL MACHINE OPERATOR, BRYAN 295 .70 P SCHIZO AFFECTIVE 07/17/2010 LILA DOWEL MACHINE OPERATOR, BRYAN 301 .83 PD BORDERLINE 07/17/2010 LILA DOWEL MACHINE OPERATOR, BRYAN 295 .70 P SCHIZO AFFECTIVE 07/17/2010 LILA DOWEL MACHINE OPERATOR, BRYAN 301 .83 PD BORDERLINE 07/17/2010 LILA DOWEL MACHINE OPERATOR, BRYAN 295 .70 P SCHIZO AFFECTIVE 07/17/2010 LILA DOWEL MACHINE OPERATOR, BRYAN 301 .83 PD BORDERLINE 07/17/2010 LILA DOWEL MACHINE OPERATOR, BRYAN 295 .70 P SCHIZO AFFECTIVE 07/17/2010 LILA DOWEL MACHINE OPERATOR, BRYAN 301 .83 PD BORDERLINE 07/17/2010 VYAS DO, ALVARO K 295.70 P SCHIZO AFFECTIVE 07/17/2010 VYAS DO, ALVARO K 301.83 PD BORDERLINE 07/17/2010 LILA DOWEL MACHINE OPERATOR, BRYAN 295 .70 P SCHIZO AFFECTIVE 07/17/2010 LILA DOWEL MACHINE OPERATOR, BRYAN 301 .83 PD BORDERLINE 07/17/2010 LILA DOWEL MACHINE OPERATOR, BRYAN 295 .70 P SCHIZO AFFECTIVE 07/17/2010 LILA DOWEL MACHINE OPERATOR, BRYAN 301 .83 PD BORDERLINE 07/17/2010 LILA DOWEL MACHINE OPERATOR, BRYAN 295 .70 P SCHIZO AFFECTIVE 07/17/2010 LILA DOWEL MACHINE OPERATOR, BRYAN 301 .83 PD BORDERLINE 07/17/2010 LILA DOWEL MACHINE OPERATOR, BRYAN 295 .70 P SCHIZO AFFECTIVE 07/17/2010 LILA DOWEL MACHINE OPERATOR, BRYAN 301 .83 PD BORDERLINE 07/17/2010 LILA DOWEL MACHINE OPERATOR, BRYAN 295 .70 P SCHIZO AFFECTIVE 07/17/2010 LILA DOWEL MACHINE OPERATOR, BRYAN 301 .83 PD BORDERLINE 07/17/2010 VYAS DO, ALVARO K 295.70 P SCHIZO AFFECTIVE 07/17/2010 VAYS DO, ALVARO K 301.83 PD BORDERLINE 07/17/2010 VYAS DO, ALVARO K 295.70 P SCHIZO AFFECTIVE 07/17/2010 VYAS DO, ALVARO K 301.83 PD BORDERLINE 07/17/2010 LILA DOWEL MACHINE OPERATOR, BRYAN 295 .70 P SCHIZO AFFECTIVE 07/17/2010 LILA DOWEL MACHINE OPERATOR, BRYAN 301 .83 PD BORDERLINE 07/17/2010 LILA DOWEL MACHINE OPERATOR, BRYAN 295 .70 P SCHIZO AFFECTIVE 07/17/2010 LILA DOWEL MACHINE OPERATOR, BRYAN 301 .83 PD BORDERLINE 07/17/2010 LILA DOWEL MACHINE OPERATOR, BRYAN 295 .70 P SCHIZO AFFECTIVE 07/17/2010 LILA DOWEL MACHINE OPERATOR, BRYAN 301 .83 PD BORDERLINE 07/17/2010 LILA DOWEL MACHINE OPERATOR, BRYAN 295 .70 P SCHIZO AFFECTIVE 07/17/2010 LILA DOWEL MACHINE OPERATOR, BRYAN 301 .83 PD BORDERLINE 07/17/2010 LILA DOWEL MACHINE OPERATOR, BRYAN 295 .70 P SCHIZO AFFECTIVE 07/17/2010 LILA DOWEL MACHINE OPERATOR, BRYAN 301 .83 PD BORDERLINE 11/01/2010 Ot 682.3 11/01/2010 Ot [...] MORBID (BMI >40) 02/22/2011 TUSHAR GAYNiharika AFUA BOSWELL 401.1 HYPERTENSION, BENIGN ESSENTIAL 02/22/2011 TUSHAR CHAUDHRY AFUA BOSWELL 278.01 OBESITY, MORBID (BMI >40) 02/22/2011 TUSHAR GAYNiharika AFUA LIZAMAH 401.1 HYPERTENSION, BENIGN ESSENTIAL 02/22/2011 278.01 OBE SITY, MORBID (BMI >40) 02/22/2011 401.1 HYPE RTENSION, BENIGN ESSENTIAL 02/22/2011 TUSHAR CHAUDHRY AFUA LIZAMAH 278.01 OBESITY, MORBID (BMI >40) 02/22/2011 FINLEYMONICO GAYNiharika AFUA LIZAMAH 401.1 HYPERTENSION, BENIGN ESSENTIAL 02/22/2011 278.01 OBE SITY, MORBID (BMI >40) 02/22/2011 401.1 HYPE RTENSION, BENIGN ESSENTIAL 02/22/2011 TUSHAR GAYNiharika AFUA LIZAMAH 278.01 OBESITY, MORBID (BMI >40) 02/22/2011 AFUA FINLEY APRNH 401.1 HYPERTENSION, BENIGN ESSENTIAL 02/22/2011 278.01 OBE SITY, MORBID (BMI >40) 02/22/2011 401.1 HYPE RTENSION, BENIGN ESSENTIAL 02/22/2011 278.01 OBE SITY, MORBID (BMI >40) 02/22/2011 401.1 HYPE RTENSION, BENIGN ESSENTIAL 02/22/2011 278.01 OBE SITY, MORBID (BMI >40) 02/22/2011 401.1 HYPE RTENSION, BENIGN ESSENTIAL 02/22/2011 278.01 OBE SITY, MORBID (BMI >40) 02/22/2011 401.1 HYPE RTENSION, BENIGN ESSENTIAL 02/22/2011 278.01 OBE SITY, MORBID (BMI >40) 02/22/2011 401.1 HYPE RTENSION, BENIGN ESSENTIAL 02/22/2011 278.01 OBE SITY, MORBID (BMI >40) 02/22/2011 401.1 HYPE RTENSION, BENIGN ESSENTIAL 02/22/2011 278.01 OBE SITY, MORBID (BMI >40) 02/22/2011 401.1 HYPE RTENSION, BENIGN ESSENTIAL 02/22/2011 FINLEY DOWEL MACHINE OPERATOR, AFUA BOSWELL 278.01 OBESITY, MORBID (BMI >40) 02/22/2011 FINLEY DOWEL MACHINE OPERATOR, AFUA LIZAMAH 401.1 HYPERTENSION, BENIGN ESSENTIAL 02/22/2011 FINLEY DOWEL MACHINE OPERATOR, AFUA ANDREIA 278.01 OBESITY, MORBID (BMI >40) 02/22/2011 FINLEY DOWEL MACHINE OPERATOR, AFUA ANDREIA 401.1 HYPERTENSION, BENIGN ESSENTIAL 02/22/2011 FINLEY DOWEL MACHINE OPERATOR, AFUA NADREIA 278.01 OBESITY, MORBID (BMI >40) 02/22/2011 FINLEY DOWEL MACHINE OPERATOR, AFUA ANDREIA 401.1 HYPERTENSION, BENIGN ESSENTIAL 02/22/2011 FINLEY DOWEL MACHINE OPERATOR, AFUA LIZAMAH 278.01 OBESITY, MORBID (BMI >40) 02/22/2011 FINLEY DOWEL MACHINE OPERATOR, AFUA LIZAMAH 401.1 HYPERTENSION, BENIGN ESSENTIAL 02/22/2011 FINLEY DOWEL MACHINE OPERATOR, AFUA ANDREIA 278.01 OBESITY, MORBID (BMI >40) 02/22/2011 FINLEY DOWEL MACHINE OPERATOR, AFUA ANDREIA 401.1 HYPERTENSION, BENIGN ESSENTIAL 02/22/2011 FINLEY DOWEL MACHINE OPERATOR, AFUA ANDREIA 278.01 OBESITY, MORBID (BMI >40) 02/22/2011 FINLEY DOWEL MACHINE OPERATOR, AFUA ANDREIA 401.1 HYPERTENSION, BENIGN ESSENTIAL 02/22/2011 FINLEY DOWEL MACHINE OPERATOR, AFUA ANDREIA 278.01 OBESITY, MORBID (BMI >40) 02/22/2011 FINLEY DOWEL MACHINE OPERATOR, AFUA ANDREIA 401.1 HYPERTENSION, BENIGN ESSENTIAL 02/22/2011 FINLEY DOWEL MACHINE OPERATOR, AFUA ANDREIA 278.01 OBESITY, MORBID (BMI >40) 02/22/2011 FINLEY DOWEL MACHINE OPERATOR, AFUA ANDREIA 401.1 HYPERTENSION, BENIGN ESSENTIAL 02/22/2011 FINLEY DOWEL MACHINE OPERATOR, AFUA ANDREIA 278.01 OBESITY, MORBID (BMI >40) 02/22/2011 FINLEY DOWEL MACHINE OPERATOR, AFUA ANDREIA 401.1 HYPERTENSION, BENIGN ESSENTIAL 02/22/2011 BRYAN SHARP APRN 278 .01 OBESITY, MORBID (BMI >40) 02/22/2011 LILA DOWEL MACHINE OPERATOR, BRYAN 401 .1 HYPERTENSION, BENIGN ESSENTIAL 02/22/2011 VYAS DO ALVARO K 278.01 OBESITY, MORBID (BMI >40) 02/22/2011 ASAEL CHAPMAN ALVARO K 401.1 HYPERTENSION, BENIGN ESSENTIAL 02/22/2011 LILA DOWEL MACHINE OPERATOR, BRYAN 278 .01 OBESITY, MORBID (BMI >40) 02/22/2011 LILA DOWEL MACHINE OPERATOR, BRYAN 401 .1 HYPERTENSION, BENIGN ESSENTIAL 02/22/2011 LILA DOWEL MACHINE OPERATOR, BRYAN 278 .01 OBESITY, MORBID (BMI >40) 02/22/2011 LILA DOWEL MACHINE OPERATOR, BRYAN 401 .1 HYPERTENSION, BENIGN ESSENTIAL 02/22/2011 LILA DOWEL MACHINE OPERATOR, BRYAN 278 .01 OBESITY, MORBID (BMI >40) 02/22/2011 LILA DOWEL MACHINE OPERATOR, BRYAN 401 .1 HYPERTENSION, BENIGN ESSENTIAL 02/22/2011 LILA DOWEL MACHINE OPERATOR, BRYAN 278 .01 OBESITY, MORBID (BMI >40) 02/22/2011 LILA DOWEL MACHINE OPERATOR, RBYAN 401 .1 HYPERTENSION, BENIGN ESSENTIAL 02/22/2011 VYAS DO ALVARO K 278.01 OBESITY, MORBID (BMI >40) 02/22/2011 ASAEL CHAPMAN ALVARO K 401.1 HYPERTENSION, BENIGN ESSENTIAL 02/22/2011 LILA DOWEL MACHINE OPERATOR, BRYAN 278 .01 OBESITY, MORBID (BMI >40) 02/22/2011 LILA DOWEL MACHINE OPERATOR, BRYAN 401 .1 HYPERTENSION, BENIGN ESSENTIAL 02/22/2011 LILA DOWEL MACHINE OPERATOR, BRYAN 278 .01 OBESITY, MORBID (BMI >40) 02/22/2011 LILA DOWEL MACHINE OPERATOR, BRYAN 401 .1 HYPERTENSION, BENIGN ESSENTIAL 02/22/2011 LILA DOWEL MACHINE OPERATOR, BRYAN 278 .01 OBESITY, MORBID (BMI >40) 02/22/2011 LILA DOWEL MACHINE OPERATOR, BRYAN 401 .1 HYPERTENSION, BENIGN ESSENTIAL 02/22/2011 LILA DOWEL MACHINE OPERATOR, BRYAN 278 .01 OBESITY, MORBID (BMI >40) 02/22/2011 LILA DOWEL MACHINE OPERATOR, BRYAN 401 .1 HYPERTENSION, BENIGN ESSENTIAL 02/22/2011 LILA DOWEL MACHINE OPERATOR, BRYAN 278 .01 OBESITY, MORBID (BMI >40) 02/22/2011 LILA DOWEL MACHINE OPERATOR, BRYAN 401 .1 HYPERTENSION, BENIGN ESSENTIAL 02/22/2011 ASAEL CHAPMAN ALVARO K 278.01 OBESITY, MORBID (BMI >40) 02/22/2011 ASAEL CHAPMAN, ALVARO K 401.1 HYPERTENSION, BENIGN ESSENTIAL 02/22/2011 ASAEL CHAPMAN, ALVARO K 278.01 OBESITY, MORBID (BMI >40) 02/22/2011 ASAEL CHAPMAN, ALVARO K 401.1 HYPERTENSION, BENIGN ESSENTIAL 02/22/2011 LILA DOWEL MACHINE OPERATOR, BRYAN 278 .01 OBESITY, MORBID (BMI >40) 02/22/2011 LILA DOWEL MACHINE OPERATOR, BRYAN 401 .1 HYPERTENSION, BENIGN ESSENTIAL 02/22/2011 LILA DOWEL MACHINE OPERATOR, BRYAN 278 .01 OBESITY, MORBID (BMI >40) 02/22/2011 LILA DOWEL MACHINE OPERATOR, BRYAN 401 .1 HYPERTENSION, BENIGN ESSENTIAL 02/22/2011 LILA DOWEL MACHINE OPERATOR, BRYAN 278 .01 OBESITY, MORBID (BMI >40) 02/22/2011 LILA DOWEL MACHINE OPERATOR, BRYAN 401 .1 HYPERTENSION, BENIGN ESSENTIAL 02/22/2011 LILA DOWEL MACHINE OPERATOR, BRYAN 278 .01 OBESITY, MORBID (BMI >40) 02/22/2011 LILA DOWEL MACHINE OPERATOR, BRYAN 401 .1 HYPERTENSION, BENIGN ESSENTIAL 02/22/2011 LILA DOWEL MACHINE OPERATOR, BRYAN 278 .01 OBESITY, MORBID (BMI >40) 02/22/2011 LILA DOWEL MACHINE OPERATOR, BRYAN 401 .1 HYPERTENSION, BENIGN ESSENTIAL 02/26/2011 TUSHAR CHAUDHRY AFUA ANDREIA 244.9 UNSPECIFIED ACQUIRED HYPOTHYROIDISM 02/26/2011 TUSHAR CHAUDHRY AFUA ANDREIA 250.00 DIABETES MELLITUS WITHOUT MENTION OF COM PLICATION TYPE II OR UNSPECIFIED TYPE NOT STATED UNCONTROLLED 02/26/2011 TUSHAR CHAUDHRY AFUA ANDREIA 719.47 PAIN IN JOINT INVOLVING ANKLE AND FOOT 02/26/2011 TUSHAR CHAUDHRY AFUA ANDREIA V70.0 GENERAL MEDICAL EXAM, ROUTINE, AT HEALTH CARE FACILITY 02/26/2011 TUSHAR CHAUDHRY AFUA ANDREIA 244.9 UNSPECIFIED ACQUIRED HYPOTHYROIDISM 02/26/2011 AFUA FINLEY APRN 250.00 DIABETES MELLITUS WITHOUT MENTION OF COM PLICATION TYPE II OR UNSPECIFIED TYPE NOT STATED UNCONTROLLED 02/26/2011 TUSHAR CHAUDHRY AFUA ANDREIA 719.47 PAIN IN JOINT INVOLVING ANKLE AND FOOT 02/26/2011 AFUA FINLEY APRN V70.0 GENERAL MEDICAL EXAM, ROUTINE, AT HEALTH CARE FACILITY 02/26/2011 244.9 UNSP ECIFIED ACQUIRED HYPOTHYROIDISM 02/26/2011 250.00 SAMANTHA BETES MELLITUS WITHOUT MENTION OF COMPLICATION TYPE II OR UNSPECIFIED TYPE NOT STATED UNCONTROLLED 02/26/2011 719.47 EUFEMIA N IN JOINT INVOLVING ANKLE AND FOOT 02/26/2011 V70.0 GENE RAL MEDICAL EXAM, ROUTINE, AT HEALTH CARE FACILITY 02/26/2011 TUSHAR CHAUDHRY AFUA BOSWELL 244.9 UNSPECIFIED ACQUIRED HYPOTHYROIDISM 02/26/2011 TUSHAR CHAUDHRYAFUA 250.00 DIABETES MELLITUS WITHOUT MENTION OF COM PLICATION TYPE II OR UNSPECIFIED TYPE NOT STATED UNCONTROLLED 02/26/2011 TUSHAR CHAUDHRY AFUA BOSWELL 719.47 PAIN IN JOINT INVOLVING ANKLE AND FOOT 02/26/2011 TUSHAR CHAUDHRY AFUA BOSWELL V70.0 GENERAL MEDICAL EXAM, ROUTINE, AT HEALTH CARE FACILITY 02/26/2011 244.9 UNSP ECIFIED ACQUIRED HYPOTHYROIDISM 02/26/2011 250.00 SAMANTHA BETES MELLITUS WITHOUT MENTION OF COMPLICATION TYPE II OR UNSPECIFIED TYPE NOT STATED UNCONTROLLED 02/26/2011 719.47 EUFEMIA N IN JOINT INVOLVING ANKLE AND FOOT 02/26/2011 V70.0 GENE RAL MEDICAL EXAM, ROUTINE, AT HEALTH CARE FACILITY 02/26/2011 TUSHAR CHAUDHRY AFUA BOSWELL 244.9 UNSPECIFIED ACQUIRED HYPOTHYROIDISM 02/26/2011 TUSHAR CHAUDHRY AFUA BOSWELL 250.00 DIABETES MELLITUS WITHOUT MENTION OF COM PLICATION TYPE II OR UNSPECIFIED TYPE NOT STATED UNCONTROLLED 02/26/2011 TUSHAR CHAUDHRY AFUA BOSWELL 719.47 PAIN IN JOINT INVOLVING ANKLE AND FOOT 02/26/2011 TUSHAR CHAUDHRY AFUA BOSWELL V70.0 GENERAL MEDICAL EXAM, ROUTINE, AT HEALTH CARE FACILITY 02/26/2011 244.9 UNSP ECIFIED ACQUIRED HYPOTHYROIDISM 02/26/2011 250.00 SAMANTHA BETES MELLITUS WITHOUT MENTION OF COMPLICATION TYPE II OR UNSPECIFIED TYPE NOT STATED UNCONTROLLED 02/26/2011 719.47 EUFEMIA N IN JOINT INVOLVING ANKLE AND FOOT 02/26/2011 V70.0 GENE RAL MEDICAL EXAM, ROUTINE, AT HEALTH CARE FACILITY 02/26/2011 244.9 UNSP ECIFIED ACQUIRED HYPOTHYROIDISM 02/26/2011 250.00 SAMANTHA BETES MELLITUS WITHOUT MENTION OF COMPLICATION TYPE II OR UNSPECIFIED TYPE NOT STATED UNCONTROLLED 02/26/2011 719.47 EUFEMIA N IN JOINT INVOLVING ANKLE AND FOOT 02/26/2011 V70.0 GENE RAL MEDICAL EXAM, ROUTINE, AT HEALTH CARE FACILITY 02/26/2011 244.9 UNSP ECIFIED ACQUIRED HYPOTHYROIDISM 02/26/2011 250.00 SAMANTHA BETES MELLITUS WITHOUT MENTION OF COMPLICATION TYPE II OR UNSPECIFIED TYPE NOT STATED UNCONTROLLED 02/26/2011 719.47 EUFEMIA N IN JOINT INVOLVING ANKLE AND FOOT 02/26/2011 V70.0 GENE RAL MEDICAL EXAM, ROUTINE, AT HEALTH CARE FACILITY 02/26/2011 244.9 UNSP ECIFIED ACQUIRED HYPOTHYROIDISM 02/26/2011 250.00 SAMANTHA BETES MELLITUS WITHOUT MENTION OF COMPLICATION TYPE II OR UNSPECIFIED TYPE NOT STATED UNCONTROLLED 02/26/2011 719.47 EUFEIMA N IN JOINT INVOLVING ANKLE AND FOOT 02/26/2011 V70.0 GENE RAL MEDICAL EXAM, ROUTINE, AT HEALTH CARE FACILITY 02/26/2011 244.9 UNSP ECIFIED ACQUIRED HYPOTHYROIDISM 02/26/2011 250.00 SAMANTHA BETES MELLITUS WITHOUT MENTION OF COMPLICATION TYPE II OR UNSPECIFIED TYPE NOT STATED UNCONTROLLED 02/26/2011 719.47 EUFEMIA N IN JOINT INVOLVING ANKLE AND FOOT 02/26/2011 V70.0 GENE RAL MEDICAL EXAM, ROUTINE, AT HEALTH CARE FACILITY 02/26/2011 244.9 UNSP ECIFIED ACQUIRED HYPOTHYROIDISM 02/26/2011 250.00 SAMANTHA BETES MELLITUS WITHOUT MENTION OF COMPLICATION TYPE II OR UNSPECIFIED TYPE NOT STATED UNCONTROLLED 02/26/2011 719.47 EUFEMIA N IN JOINT INVOLVING ANKLE AND FOOT 02/26/2011 V70.0 GENE RAL MEDICAL EXAM, ROUTINE, AT HEALTH CARE FACILITY 02/26/2011 244.9 UNSP ECIFIED ACQUIRED HYPOTHYROIDISM 02/26/2011 250.00 SAMANTHA BETES MELLITUS WITHOUT MENTION OF COMPLICATION TYPE II OR UNSPECIFIED TYPE NOT STATED UNCONTROLLED 02/26/2011 719.47 EUFEMIA N IN JOINT INVOLVING ANKLE AND FOOT 02/26/2011 V70.0 GENE RAL MEDICAL EXAM, ROUTINE, AT HEALTH CARE FACILITY 02/26/2011 AFUA FINLEY APRN 244.9 UNSPECIFIED ACQUIRED HYPOTHYROIDISM 02/26/2011 AFUA FINLEY APRN 250.00 DIABETES MELLITUS WITHOUT MENTION OF COM PLICATION TYPE II OR UNSPECIFIED TYPE NOT STATED UNCONTROLLED 02/26/2011 AFUA FINLEY APRN 719.47 PAIN IN JOINT INVOLVING ANKLE AND FOOT 02/26/2011 AFUA FINLEY APRN V70.0 GENERAL MEDICAL EXAM, ROUTINE, AT HEALTH CARE FACILITY 02/26/2011 TUSHAR GAYNAFUA 244.9 UNSPECIFIED ACQUIRED HYPOTHYROIDISM 02/26/2011 TUSHAR GAYNAFUA 250.00 DIABETES MELLITUS WITHOUT MENTION OF COM PLICATION TYPE II OR UNSPECIFIED TYPE NOT STATED UNCONTROLLED 02/26/2011 TUSHAR GAYNAFUA 719.47 PAIN IN JOINT INVOLVING ANKLE AND FOOT 02/26/2011 FINLEY RICHA AFUA BOSWELL V70.0 GENERAL MEDICAL EXAM, ROUTINE, AT HEALTH CARE FACILITY 02/26/2011 TUSHAR GAYNiharika AFUA BOSWELL 244.9 UNSPECIFIED ACQUIRED HYPOTHYROIDISM 02/26/2011 TUSHAR GAYNAFUA 250.00 DIABETES MELLITUS WITHOUT MENTION OF COM PLICATION TYPE II OR UNSPECIFIED TYPE NOT STATED UNCONTROLLED 02/26/2011 FINLEY RICHA AFUA BOSWELL 719.47 PAIN IN JOINT INVOLVING ANKLE AND FOOT 02/26/2011 FINLEY RICHA AFUA BOSWELL V70.0 GENERAL MEDICAL EXAM, ROUTINE, AT HEALTH CARE FACILITY 02/26/2011 TUSHAR GAYNiharika AFUA BOSWELL 244.9 UNSPECIFIED ACQUIRED HYPOTHYROIDISM 02/26/2011 TUSHAR GAYNiharika AFUA BOSWELL 250.00 DIABETES MELLITUS WITHOUT MENTION OF COM PLICATION TYPE II OR UNSPECIFIED TYPE NOT STATED UNCONTROLLED 02/26/2011 FINLEY RICHA AFUA BOSWELL 719.47 PAIN IN JOINT INVOLVING ANKLE AND FOOT 02/26/2011 TUSHAR GAYNiharika AFUA BOSWELL V70.0 GENERAL MEDICAL EXAM, ROUTINE, AT HEALTH CARE FACILITY 02/26/2011 FNILEY RICAH AFUA BOSWELL 244.9 UNSPECIFIED ACQUIRED HYPOTHYROIDISM 02/26/2011 TUSHAR GAYNiharika AFUA BOSWELL 250.00 DIABETES MELLITUS WITHOUT MENTION OF COM PLICATION TYPE II OR UNSPECIFIED TYPE NOT STATED UNCONTROLLED 02/26/2011 FINLEY RICHA AFUA BOSWELL 719.47 PAIN IN JOINT INVOLVING ANKLE AND FOOT 02/26/2011 FINLEY RICHA AFUA BOSWELL V70.0 GENERAL MEDICAL EXAM, ROUTINE, AT HEALTH CARE FACILITY 02/26/2011 TUSHAR GAYNiharika AFUA BOSWELL 244.9 UNSPECIFIED ACQUIRED HYPOTHYROIDISM 02/26/2011 FINLEY RICHA AFUA BOSWELL 250.00 DIABETES MELLITUS WITHOUT MENTION OF COM PLICATION TYPE II OR UNSPECIFIED TYPE NOT STATED UNCONTROLLED 02/26/2011 AFUA FINLEY APRN 719.47 PAIN IN JOINT INVOLVING ANKLE AND FOOT 02/26/2011 AFUA FINLEY APRN V70.0 GENERAL MEDICAL EXAM, ROUTINE, AT HEALTH CARE FACILITY 02/26/2011 AFUA FINLEY APRN 244.9 UNSPECIFIED ACQUIRED HYPOTHYROIDISM 02/26/2011 AFUA FINLEY APRN 250.00 DIABETES MELLITUS WITHOUT MENTION OF COM PLICATION TYPE II OR UNSPECIFIED TYPE NOT STATED UNCONTROLLED 02/26/2011 AFUA FINLEY APRN 719.47 PAIN IN JOINT INVOLVING ANKLE AND FOOT 02/26/2011 AFUA FINLEY APRN V70.0 GENERAL MEDICAL EXAM, ROUTINE, AT HEALTH CARE FACILITY 02/26/2011 AFUA FINLEY APRN 244.9 UNSPECIFIED ACQUIRED HYPOTHYROIDISM 02/26/2011 AFUA FINLEY APRN 250.00 DIABETES MELLITUS WITHOUT MENTION OF COM PLICATION TYPE II OR UNSPECIFIED TYPE NOT STATED UNCONTROLLED 02/26/2011 AFUA FINLEY APRN 719.47 PAIN IN JOINT INVOLVING ANKLE AND FOOT 02/26/2011 AFUA FINLEY APRN V70.0 GENERAL MEDICAL EXAM, ROUTINE, AT HEALTH CARE FACILITY 02/26/2011 AFUA FINLEY APRN 244.9 UNSPECIFIED ACQUIRED HYPOTHYROIDISM 02/26/2011 AFUA FINLEY APRN 250.00 DIABETES MELLITUS WITHOUT MENTION OF COM PLICATION TYPE II OR UNSPECIFIED TYPE NOT STATED UNCONTROLLED 02/26/2011 AFUA FINLEY APRN 719.47 PAIN IN JOINT INVOLVING ANKLE AND FOOT 02/26/2011 TUSHAR GAYNAFUA V70.0 GENERAL MEDICAL EXAM, ROUTINE, AT HEALTH CARE FACILITY 02/26/2011 TEMO SHARP APRNETTE 244 .9 UNSPECIFIED ACQUIRED HYPOTHYROIDISM 02/26/2011 LILA RICHA BRYAN 250 .00 DIABETES MELLITUS WITHOUT MENTION OF COMPLICATION TYPE II OR UNSPECIFIED TYPE NOT STATED UNCONTROLLED 02/26/2011 LILA CHAUDHRY BRYAN 719 .47 PAIN IN JOINT INVOLVING ANKLE AND FOOT 02/26/2011 LILA DOWEL MACHINE OPERATOR, BRYAN V70 .0 GENERAL MEDICAL EXAM, ROUTINE, AT HEALTH CARE FACILITY 02/26/2011 ALVARO VYAS DO 244.9 UNSPECIFIED ACQUIRED HYPOTHYROIDISM 02/26/2011 VYAS DO, ALVARO K 250.00 DIABETES MELLITUS WITHOUT MENTION OF COMPLICATION TYPE II OR UNSPECIFIED TYPE NOT STATED UNCONTROLLED 02/26/2011 GEE VYAS DOA K 719.47 PAIN IN JOINT INVOLVING ANKLE AND FOOT 02/26/2011 ALVARO VYAS DO K V70.0 GENERAL MEDICAL EXAM, ROUTINE, AT HEALTH CARE FACILITY 02/26/2011 LILA DOWEL MACHINE OPERATOR, BRYAN 244 .9 UNSPECIFIED ACQUIRED HYPOTHYROIDISM 02/26/2011 LILA DOWEL MACHINE OPERATOR, BRYAN 250 .00 DIABETES MELLITUS WITHOUT MENTION OF COMPLICATION TYPE II OR UNSPECIFIED TYPE NOT STATED UNCONTROLLED 02/26/2011 LILA DOWEL MACHINE OPERATOR, BRYAN 719 .47 PAIN IN JOINT INVOLVING ANKLE AND FOOT 02/26/2011 LILA DOWEL MACHINE OPERATOR, BRYAN V70 .0 GENERAL MEDICAL EXAM, ROUTINE, AT HEALTH CARE FACILITY 02/26/2011 LILA DOWEL MACHINE OPERATOR, BRYAN 244 .9 UNSPECIFIED ACQUIRED HYPOTHYROIDISM 02/26/2011 LILA DOWEL MACHINE OPERATOR, BRYAN 250 .00 DIABETES MELLITUS WITHOUT MENTION OF COMPLICATION TYPE II OR UNSPECIFIED TYPE NOT STATED UNCONTROLLED 02/26/2011 LILA DOWEL MACHINE OPERATOR, BRYAN 719 .47 PAIN IN JOINT INVOLVING ANKLE AND FOOT 02/26/2011 LILA DOWEL MACHINE OPERATOR, BRYAN V70 .0 GENERAL MEDICAL EXAM, ROUTINE, AT HEALTH CARE FACILITY 02/26/2011 LILA DOWEL MACHINE OPERATOR, BRYAN 244 .9 UNSPECIFIED ACQUIRED HYPOTHYROIDISM 02/26/2011 LILA DOWEL MACHINE OPERATOR, BRYAN 250 .00 DIABETES MELLITUS WITHOUT MENTION OF COMPLICATION TYPE II OR UNSPECIFIED TYPE NOT STATED UNCONTROLLED 02/26/2011 LILA DOWEL MACHINE OPERATOR, BRYAN 719 .47 PAIN IN JOINT INVOLVING ANKLE AND FOOT 02/26/2011 LILA DOWEL MACHINE OPERATOR, BRYAN V70 .0 GENERAL MEDICAL EXAM, ROUTINE, AT HEALTH CARE FACILITY 02/26/2011 LILA DOWEL MACHINE OPERATOR, BRYAN 244 .9 UNSPECIFIED ACQUIRED HYPOTHYROIDISM 02/26/2011 LILA DOWEL MACHINE OPERATOR, BRYAN 250 .00 DIABETES MELLITUS WITHOUT MENTION OF COMPLICATION TYPE II OR UNSPECIFIED TYPE NOT STATED UNCONTROLLED 02/26/2011 LILA DOWEL MACHINE OPERATOR, BRYAN 719 .47 PAIN IN JOINT INVOLVING ANKLE AND FOOT 02/26/2011 LILA DOWEL MACHINE OPERATOR, BRYAN V70 .0 GENERAL MEDICAL EXAM, ROUTINE, AT HEALTH CARE FACILITY 02/26/2011 ALVARO VYAS DO K 244.9 UNSPECIFIED ACQUIRED HYPOTHYROIDISM 02/26/2011 ALVARO VYAS DO K 250.00 DIABETES MELLITUS WITHOUT MENTION OF COMPLICATION TYPE II OR UNSPECIFIED TYPE NOT STATED UNCONTROLLED 02/26/2011 ALVARO VYAS DO Alejandro 719.47 PAIN IN JOINT INVOLVING ANKLE AND FOOT 02/26/2011 ALVARO VYAS DO V70.0 GENERAL MEDICAL EXAM, ROUTINE, AT HEALTH CARE FACILITY 02/26/2011 LILA DOWEL MACHINE OPERATOR, BRYAN 244 .9 UNSPECIFIED ACQUIRED HYPOTHYROIDISM 02/26/2011 LILA DOWEL MACHINE OPERATOR, BRYAN 250 .00 DIABETES MELLITUS WITHOUT MENTION OF COMPLICATION TYPE II OR UNSPECIFIED TYPE NOT STATED UNCONTROLLED 02/26/2011 LILA DOWEL MACHINE OPERATOR, BRYAN 719 .47 PAIN IN JOINT INVOLVING ANKLE AND FOOT 02/26/2011 LILA DOWEL MACHINE OPERATOR, BRYAN V70 .0 GENERAL MEDICAL EXAM, ROUTINE, AT HEALTH CARE FACILITY 02/26/2011 LILA DOWEL MACHINE OPERATOR, BRYAN 244 .9 UNSPECIFIED ACQUIRED HYPOTHYROIDISM 02/26/2011 LILA DOWEL MACHINE OPERATOR, BRYAN 250 .00 DIABETES MELLITUS WITHOUT MENTION OF COMPLICATION TYPE II OR UNSPECIFIED TYPE NOT STATED UNCONTROLLED 02/26/2011 LILADINA CHAUDHRY, BRYAN 719 .47 PAIN IN JOINT INVOLVING ANKLE AND FOOT 02/26/2011 LILA DOWEL MACHINE OPERATOR, BRYAN V70 .0 GENERAL MEDICAL EXAM, ROUTINE, AT HEALTH CARE FACILITY 02/26/2011 LILA DOWEL MACHINE OPERATOR, BRYAN 244 .9 UNSPECIFIED ACQUIRED HYPOTHYROIDISM 02/26/2011 LILA DOWEL MACHINE OPERATOR, BRYAN 250 .00 DIABETES MELLITUS WITHOUT MENTION OF COMPLICATION TYPE II OR UNSPECIFIED TYPE NOT STATED UNCONTROLLED 02/26/2011 LILA DOWEL MACHINE OPERATOR, BRYAN 719 .47 PAIN IN JOINT INVOLVING ANKLE AND FOOT 02/26/2011 LILA DOWEL MACHINE OPERATOR, BRYAN V70 .0 GENERAL MEDICAL EXAM, ROUTINE, AT HEALTH CARE FACILITY 02/26/2011 LILA DOWEL MACHINE OPERATOR, BRYAN 244 .9 UNSPECIFIED ACQUIRED HYPOTHYROIDISM 02/26/2011 LILA DOWEL MACHINE OPERATOR, BRYAN 250 .00 DIABETES MELLITUS WITHOUT MENTION OF COMPLICATION TYPE II OR UNSPECIFIED TYPE NOT STATED UNCONTROLLED 02/26/2011 LILA DOWEL MACHINE OPERATOR, BRYAN 719 .47 PAIN IN JOINT INVOLVING ANKLE AND FOOT 02/26/2011 LILA DOWEL MACHINE OPERATOR, BRYAN V70 .0 GENERAL MEDICAL EXAM, ROUTINE, AT HEALTH CARE FACILITY 02/26/2011 LILA DOWEL MACHINE OPERATOR, BRYAN 244 .9 UNSPECIFIED ACQUIRED HYPOTHYROIDISM 02/26/2011 LILA DOWEL MACHINE OPERATOR, BRYAN 250 .00 DIABETES MELLITUS WITHOUT MENTION OF COMPLICATION TYPE II OR UNSPECIFIED TYPE NOT STATED UNCONTROLLED 02/26/2011 LILA DOWEL MACHINE OPERATOR, BRYAN 719 .47 PAIN IN JOINT INVOLVING ANKLE AND FOOT 02/26/2011 LILA DOWEL MACHINE OPERATOR, BRYAN V70 .0 GENERAL MEDICAL EXAM, ROUTINE, AT HEALTH CARE [...] DO K 244.9 UNSPECIFIED ACQUIRED HYPOTHYROIDISM 02/26/2011 ASAEL CHAPMAN ALVARO K 250.00 DIABETES MELLITUS WITHOUT MENTION OF COMPLICATION TYPE II OR UNSPECIFIED TYPE NOT STATED UNCONTROLLED 02/26/2011 ALVARO VYAS DO K 719.47 PAIN IN JOINT INVOLVING ANKLE AND FOOT 02/26/2011 GEE VYAS DOA K V70.0 GENERAL MEDICAL EXAM, ROUTINE, AT HEALTH CARE FACILITY 02/26/2011 LILA DOWEL MACHINE OPERATOR, BRYAN 244 .9 UNSPECIFIED ACQUIRED HYPOTHYROIDISM 02/26/2011 LILA DOWEL MACHINE OPERATOR, BRYAN 250 .00 DIABETES MELLITUS WITHOUT MENTION OF COMPLICATION TYPE II OR UNSPECIFIED TYPE NOT STATED UNCONTROLLED 02/26/2011 LILA DOWEL MACHINE OPERATOR, BRYAN 719 .47 PAIN IN JOINT INVOLVING ANKLE AND FOOT 02/26/2011 LILA DOWEL MACHINE OPERATOR, BRYAN V70 .0 GENERAL MEDICAL EXAM, ROUTINE, AT HEALTH CARE FACILITY 02/26/2011 LILA DOWEL MACHINE OPERATOR, BRYAN 244 .9 UNSPECIFIED ACQUIRED HYPOTHYROIDISM 02/26/2011 LILA DOWEL MACHINE OPERATOR, BRYAN 250 .00 DIABETES MELLITUS WITHOUT MENTION OF COMPLICATION TYPE II OR UNSPECIFIED TYPE NOT STATED UNCONTROLLED 02/26/2011 LILA DOWEL MACHINE OPERATOR, BRYAN 719 .47 PAIN IN JOINT INVOLVING ANKLE AND FOOT 02/26/2011 LILA DOWEL MACHINE OPERATOR, BRYAN V70 .0 GENERAL MEDICAL EXAM, ROUTINE, AT HEALTH CARE FACILITY 02/26/2011 LILA DOWEL MACHINE OPERATOR, BRYAN 244 .9 UNSPECIFIED ACQUIRED HYPOTHYROIDISM 02/26/2011 LILA DOWEL MACHINE OPERATOR, BRYAN 250 .00 DIABETES MELLITUS WITHOUT MENTION OF COMPLICATION TYPE II OR UNSPECIFIED TYPE NOT STATED UNCONTROLLED 02/26/2011 BRYAN SHARP APRN 719 .47 PAIN IN JOINT INVOLVING ANKLE AND FOOT 02/26/2011 BRYAN SHARP APRN V70 .0 GENERAL MEDICAL EXAM, ROUTINE, AT HEALTH CARE FACILITY 02/26/2011 TEMO SHARP APRNETTE 244 .9 UNSPECIFIED ACQUIRED HYPOTHYROIDISM 02/26/2011 LILA CHAUDHRY BRYAN 250 .00 DIABETES MELLITUS WITHOUT MENTION OF COMPLICATION TYPE II OR UNSPECIFIED TYPE NOT STATED UNCONTROLLED 02/26/2011 BRYAN SHARP APRN 719 .47 PAIN IN JOINT INVOLVING ANKLE AND FOOT 02/26/2011 BRYAN SHARP APRN V70 .0 GENERAL MEDICAL EXAM, ROUTINE, AT HEALTH CARE FACILITY 02/26/2011 TEMO SHARP APRNETTE 244 .9 UNSPECIFIED ACQUIRED HYPOTHYROIDISM 02/26/2011 TEMO SHARP APRNETTE 250 .00 DIABETES MELLITUS WITHOUT MENTION OF COMPLICATION TYPE II OR UNSPECIFIED TYPE NOT STATED UNCONTROLLED 02/26/2011 BRYAN SHARP APRN 719 .47 PAIN IN JOINT INVOLVING ANKLE AND FOOT 02/26/2011 BRYAN SHARP APRN V70 .0 GENERAL MEDICAL EXAM, ROUTINE, AT HEALTH CARE FACILITY 03/03/2011 TUSHAR CHAUDHRY AFUA ANDREIA V58.69 MEDICATION HIGH RISK 03/03/2011 TUSHAR CHAUDHRY AFUA ANDREIA V58.69 MEDICATION HIGH RISK 03/03/2011 V58.69 MED ICATION HIGH RISK 03/03/2011 TUSHAR CHAUDHRY AFUA BOSWELL V58.69 MEDICATION HIGH RISK 03/03/2011 V58.69 MED ICATION HIGH RISK 03/03/2011 TUSHAR CHAUDHRY AFUA LIZAMAH V58.69 MEDICATION HIGH RISK 03/03/2011 V58.69 MED ICATION HIGH RISK 03/03/2011 V58.69 MED ICATION HIGH RISK 03/03/2011 V58.69 MED ICATION HIGH RISK 03/03/2011 V58.69 MED ICATION HIGH RISK 03/03/2011 V58.69 MED ICATION HIGH RISK 03/03/2011 V58.69 MED ICATION HIGH RISK 03/03/2011 V58.69 MED ICATION HIGH RISK 03/03/2011 TUSHAR CHAUDHRY AFUA LIZAMAH V58.69 MEDICATION HIGH RISK 03/03/2011 TUSHAR CHAUDHRY AFUA BOSWELL V58.69 MEDICATION HIGH RISK 03/03/2011 TUSHAR CHAUDHRY AFUA BOSWELL V58.69 MEDICATION HIGH RISK 03/03/2011 FINLEY DOWEL MACHINE OPERATOR, AFUA BOSWELL V58.69 MEDICATION HIGH RISK 03/03/2011 FINLEY DOWEL MACHINE OPERATOR, AFUA BOSWELL V58.69 MEDICATION HIGH RISK 03/03/2011 FINLEY DOWEL MACHINE OPERATOR, AFUA BOSWELL V58.69 MEDICATION HIGH RISK 03/03/2011 FINLEY DOWEL MACHINE OPERATOR, AFUA BOSWELL V58.69 MEDICATION HIGH RISK 03/03/2011 FINLEY DOWEL MACHINE OPERATOR, AFUA BOSWELL V58.69 MEDICATION HIGH RISK 03/03/2011 FINLEY DOWEL MACHINE OPERATOR, AFUA BOSWELL V58.69 MEDICATION HIGH RISK 03/03/2011 LILA DOWEL MACHINE OPERATOR, BRYAN V58 .69 MEDICATION HIGH RISK 03/03/2011 VYAS DO, ALVARO K V58.69 MEDICATION HIGH RISK 03/03/2011 LILA DOWEL MACHINE OPERATOR, BRYAN V58 .69 MEDICATION HIGH RISK 03/03/2011 LILA DOWEL MACHINE OPERATOR, BRYAN V58 .69 MEDICATION HIGH RISK 03/03/2011 LILA DOWEL MACHINE OPERATOR, BRYAN V58 .69 MEDICATION HIGH RISK 03/03/2011 LILA DOWEL MACHINE OPERATOR, BRYAN V58 .69 MEDICATION HIGH RISK 03/03/2011 VYAS DO, ALVARO K V58.69 MEDICATION HIGH RISK 03/03/2011 LILA DOWEL MACHINE OPERATOR, BRYAN V58 .69 MEDICATION HIGH RISK 03/03/2011 LILA DOWEL MACHINE OPERATOR, BRYAN V58 .69 MEDICATION HIGH RISK 03/03/2011 LILA DOWEL MACHINE OPERATOR, BRYAN V58 .69 MEDICATION HIGH RISK 03/03/2011 LILA DOWEL MACHINE OPERATOR, BRYAN V58 .69 MEDICATION HIGH RISK 03/03/2011 LILA DOWEL MACHINE OPERATOR, BRYAN V58 .69 MEDICATION HIGH RISK 03/03/2011 VYAS DO, ALVARO K V58.69 MEDICATION HIGH RISK 03/03/2011 VYAS DO, ALVARO K V58.69 MEDICATION HIGH RISK 03/03/2011 LILA DOWEL MACHINE OPERATOR, BRYAN V58 .69 MEDICATION HIGH RISK 03/03/2011 LILA DOWEL MACHINE OPERATOR, BRYAN V58 .69 MEDICATION HIGH RISK 03/03/2011 LILA DOWEL MACHINE OPERATOR, BRYAN V58 .69 MEDICATION HIGH RISK 03/03/2011 LILA DOWEL MACHINE OPERATOR, BRYAN V58 .69 MEDICATION HIGH RISK 03/03/2011 LILA DOWEL MACHINE OPERATOR, BRYAN V58 .69 MEDICATION HIGH RISK 03/20/2011 Ot 780.59 SLE EP DISTURBANCES NEC 09/07/2011 Ot 784.0 HEAD ACHE 02/09/2012 Ot 250.00 SAMANTHA B [place] WO COMPL, TYPE II OR UNSPEC TY 02/09/2012 Ot 295.90 MONSERRAT IZOPHRENIA NOS-UNSPEC 02/09/2012 Ot 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 02/09/2012 Ot 311 DEPRES SIVE DISORDER NEC 02/09/2012 Ot 401.9 HYPE RTENSION NOS 02/09/2012 Ot 962.3 POIS ON- INSULIN/ANTIDIAB 02/09/2012 Ot 963.0 POIS - ANTIALLRG/ANTIEMET 02/09/2012 Ot 965.4 POIS -AROM ANALGESICS NEC 02/09/2012 Ot 966.3 POIS -ANTICONVUL NEC/NOS 02/09/2012 Ot 969.00 POI SONING BY ANTIDEPRESSANT, UNSPECIFIED 02/09/2012 Ot 969.4 POIS - BENZODIAZEPINE SCOTT 02/09/2012 Ot E950.0 HEIDY CIDE- ANALGESICS 02/09/2012 Ot 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 02/09/2012 Ot E950.4 HEIDY CIDE- DRUG/MEDICIN NEC 02/09/2012 Ot V62.84 HEIDY CIDAL IDEATION 11/08/2012 Ot 250.00 SAMANTHA B [place] WO COMPL, TYPE II OR UNSPEC TY 11/08/2012 Ot 599.0 URIN TRACT INFECTION NOS 11/08/2012 Ot 780.1 BACA UCINATIONS 11/08/2012 Ot 965.09 POI SONING-OPIATES NEC 11/08/2012 Ot 969.4 POIS - BENZODIAZEPINE SCOTT 11/08/2012 Ot E950.0 HEIDY CIDE- ANALGESICS 11/08/2012 Ot 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 11/08/2012 Ot V62.84 HEIDY CIDAL IDEATION 01/19/2013 AFUA FINLEY APRN 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 01/19/2013 295.30 P S CHIZO PARANOID UNSPECIFIED 01/19/2013 295.30 P S CHIZO PARANOID UNSPECIFIED 01/19/2013 295.30 P S CHIZO PARANOID UNSPECIFIED 01/19/2013 295.30 P S CHIZO PARANOID UNSPECIFIED 01/19/2013 295.30 P S CHIZO PARANOID UNSPECIFIED 01/19/2013 295.30 P S CHIZO PARANOID UNSPECIFIED 01/19/2013 295.30 P S CHIZO PARANOID UNSPECIFIED 01/19/2013 FINLEY DOWEL MACHINE OPERATOR, AFUA BOSWELL 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 01/19/2013 FINLEY DOWEL MACHINE OPERATOR, AFUA LIZAMAH 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 01/19/2013 FINLEY DOWEL MACHINE OPERATOR, AFUA LIZAMAH 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 01/19/2013 FINLEY DOWEL MACHINE OPERATOR, AFUA LIZAMAH 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 01/19/2013 FINLEY DOWEL MACHINE OPERATOR, AFUA LIZAMAH 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 01/19/2013 FINLEY DOWEL MACHINE OPERATOR, AFUA LIZAMAH 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 01/19/2013 FINLEY DOWEL MACHINE OPERATOR, AFUA LIZAMAH 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 01/19/2013 FINLEY DOWEL MACHINE OPERATOR, AFUA LIZAMAH 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 01/19/2013 FINLEY DOWEL MACHINE OPERATOR, AFUA LIZAMAH 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 01/19/2013 LILA DOWEL MACHINE OPERATOR, BRYAN 295 .30 P SCHIZO PARANOID UNSPECIFIED 01/19/2013 ALVARO VYAS DO 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 01/19/2013 LILA DOWEL MACHINE OPERATOR, BRYAN 295 .30 P SCHIZO PARANOID UNSPECIFIED 01/19/2013 LILA DOWEL MACHINE OPERATOR, BRYAN 295 .30 P SCHIZO PARANOID UNSPECIFIED 01/19/2013 LILA DOWEL MACHINE OPERATOR, BRYAN 295 .30 P SCHIZO PARANOID UNSPECIFIED 01/19/2013 LILA DOWEL MACHINE OPERATOR, BRYAN 295 .30 P SCHIZO PARANOID UNSPECIFIED 01/19/2013 ALVARO VYAS DO K 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 01/19/2013 LILA DOWEL MACHINE OPERATOR, BRYAN 295 .30 P SCHIZO PARANOID UNSPECIFIED 01/19/2013 LILA DOWEL MACHINE OPERATOR, BRYAN 295 .30 P SCHIZO PARANOID UNSPECIFIED 01/19/2013 LILA DOWEL MACHINE OPERATOR, BRYAN 295 .30 P SCHIZO PARANOID UNSPECIFIED 01/19/2013 LILA DOWEL MACHINE OPERATOR, BRYAN 295 .30 P SCHIZO PARANOID UNSPECIFIED 01/19/2013 LILA DOWEL MACHINE OPERATOR, BRYAN 295 .30 P SCHIZO PARANOID UNSPECIFIED 01/19/2013 ALVARO VYAS DO 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 01/19/2013 ALVARO VAYS DO 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 01/19/2013 LILA DOWEL MACHINE OPERATOR, BRYAN 295 .30 P SCHIZO PARANOID UNSPECIFIED 01/19/2013 LILA DOWEL MACHINE OPERATOR, BRYAN 295 .30 P SCHIZO PARANOID UNSPECIFIED 01/19/2013 LILA DOWEL MACHINE OPERATOR, BRYAN 295 .30 P SCHIZO PARANOID UNSPECIFIED 01/19/2013 LILA DOWEL MACHINE OPERATOR, BRYAN 295 .30 P SCHIZO PARANOID UNSPECIFIED 01/19/2013 LILA DOWEL MACHINE OPERATOR, BRYAN 295 .30 P SCHIZO PARANOID UNSPECIFIED 02/08/2013 Ot 250.00 SAMANTHA B [place] WO COMPL, TYPE II OR UNSPEC TY 02/08/2013 Ot 784.0 HEAD ACHE 02/08/2013 Ot V58.67 KIRTI G-TERM (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 INSULIN 02/10/2013 Ot 244.9 HYPO THYROIDISM NOS 02/10/2013 Ot 250.00 SAMANTHA B [place] WO COMPL, TYPE II OR UNSPEC TY 02/10/2013 Ot 295.90 MONSERRAT IZOPHRENIA NOS-UNSPEC 02/10/2013 Ot 300.00 ANX IETY STATE NOS 02/10/2013 Ot 301.9 PERS ONALITY DISORDER NOS 02/10/2013 Ot 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 02/10/2013 Ot 530.81 ESO PHAGEAL REFLUX 02/10/2013 Ot 965.8 POIS - ANALGES/ANTIPYR NEC 02/10/2013 Ot 968.0 POIS -UX LEAD MUSCLE DEPRESS 02/10/2013 Ot 969.3 POIS ON- ANTIPSYCHOTIC NEC 02/10/2013 Ot 969.4 POIS - BENZODIAZEPINE SCOTT 02/10/2013 Ot E849.0 ACC IDENT IN HOME 02/10/2013 Ot E950.0 HEIDY CIDE- ANALGESICS 02/10/2013 Ot 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 02/10/2013 Ot E950.4 HEIDY CIDE- DRUG/MEDICIN NEC 02/10/2013 Ot V58.67 KIRTI G-TERM (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 INSULIN 05/18/2013 SERGIO GERARD Ot 295.90 SCHIZOPHRENIA NOS-UNSPEC 05/18/2013 SERGIO GERARD Ot 3 11 DEPRESSIVE DISORDER NEC 05/18/2013 SERGIO GERARD Ot 599.0 URIN TRACT INFECTION NOS 05/18/2013 SERGIO GERARD Ot 790.29 OTHER ABNORMAL GLUCOSE 05/18/2013 SERGIO GERARD Ot V62.84 SUICIDAL IDEATION 07/18/2013 FINLEY RICHA AFUA ANDREIA 309.81 AN PTSD 07/18/2013 FINLEY DOWEL MACHINE OPERATOR, AFUA ANDREIA 309.81 AN PTSD 07/18/2013 FINLEY DOWEL MACHINE OPERATOR, AFUA ANDREIA 309.81 AN PTSD 07/18/2013 FINLEY DOWEL MACHINE OPERATOR, AFUA ANDREIA 309.81 AN PTSD 07/18/2013 FINLEY DOWEL MACHINE OPERATOR, AFUA ANDREIA 309.81 AN PTSD 07/18/2013 FINLEY DOWEL MACHINE OPERATOR, AFUA ANDREIA 309.81 AN PTSD 07/18/2013 FINLEY DOWEL MACHINE OPERATOR, AFUA ANDREIA 309.81 AN PTSD 07/18/2013 LILA DOWEL MACHINE OPERATOR, BRYAN 309 .81 AN PTSD 07/18/2013 ALVARO VYAS DO 309.81 AN PTSD 07/18/2013 LILA DOWEL MACHINE OPERATOR, BRYAN 309 .81 AN PTSD 07/18/2013 LILA DOWEL MACHINE OPERATOR, BRYAN 309 .81 AN PTSD 07/18/2013 LILA DOWEL MACHINE OPERATOR, BRYAN 309 .81 AN PTSD 07/18/2013 LILA DOWEL MACHINE OPERATOR, BRYAN 309 .81 AN PTSD 07/18/2013 ALVARO VYAS DO 309.81 AN PTSD 07/18/2013 LILA DOWEL MACHINE OPERATOR, BRYAN 309 .81 AN PTSD 07/18/2013 LILA DOWEL MACHINE OPERATOR, BRYAN 309 .81 AN PTSD 07/18/2013 LILA DOWEL MACHINE OPERATOR, BRYAN 309 .81 AN PTSD 07/18/2013 LILA DOWEL MACHINE OPERATOR, BRYAN 309 .81 AN PTSD 07/18/2013 LILA DOWEL MACHINE OPERATOR, BRYAN 309 .81 AN PTSD 07/18/2013 ALVARO VYAS DO 309.81 AN PTSD 07/18/2013 ALVARO VYAS DO 309.81 AN PTSD 07/18/2013 LILA DOWEL MACHINE OPERATOR, BRYAN 309 .81 AN PTSD 07/18/2013 LILA DOWEL MACHINE OPERATOR, BRYAN 309 .81 AN PTSD 07/18/2013 LILA DOWEL MACHINE OPERATOR, BRYAN 309 .81 AN PTSD 07/18/2013 LILA DOWEL MACHINE OPERATOR, BRYAN 309 .81 AN PTSD 07/18/2013 LILA DOWEL MACHINE OPERATOR, BRYAN 309 .81 AN PTSD 09/03/2013 FINLEY DOWEL MACHINE OPERATOR, AFUA BOSWELL 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 09/03/2013 FINLEY DOWEL MACHINE OPERATOR, AFUA BOSWELL 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 09/03/2013 FINLEY DOWEL MACHINE OPERATOR, AFUA BOSWELL 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 09/03/2013 FINLEY DOWEL MACHINE OPERATOR, AFUA BOSWELL 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 09/03/2013 FINLEY DOWEL MACHINE OPERATOR, AFUA BOSWELL 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 09/03/2013 FINLEY DOWEL MACHINE OPERATOR, AFUA LIZAMAH 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 09/03/2013 LILA DOWEL MACHINE OPERATOR, BRYAN 295 .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 09/03/2013 ALVARO VYAS DO K 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 09/03/2013 LILA DOWEL MACHINE OPERATOR, BRYAN 295 .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 09/03/2013 LILA DOWEL MACHINE OPERATOR, BRYAN 295 .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 09/03/2013 LILA DOWEL MACHINE OPERATOR, BRYAN 295 .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 09/03/2013 LILA DOWEL MACHINE OPERATOR, BRYAN 295 .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 09/03/2013 ALVARO VYAS DO K 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 09/03/2013 LILA DOWEL MACHINE OPERATOR, BRYAN 295 .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 09/03/2013 LILA DOWEL MACHINE OPERATOR, BRYAN 295 .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 09/03/2013 LILA DOWEL MACHINE OPERATOR, BRYAN 295 .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 09/03/2013 LILA DOWEL MACHINE OPERATOR, BRYAN 295 .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 09/03/2013 LILA DOWEL MACHINE OPERATOR, BRYAN 295 .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 09/03/2013 ALVARO VYAS DO K 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 09/03/2013 ALVARO VYAS DO K 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 09/03/2013 LILA CHAUDHRY BRYAN 295 .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 09/03/2013 LILA RICHA, BRYAN 295 .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 09/03/2013 LILA DOWEL MACHINE OPERATOR, BRYAN 295 .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 09/03/2013 LILA DOWEL MACHINE OPERATOR, BRYAN 295 .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 09/03/2013 LILA CHAUDHRY, BRYAN 295 .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 09/07/2013 DARRICK VERDUZCO MD Ot 250.00 DIAB [place] WO COMPL, TYPE II OR UNSPEC TY 09/07/2013 DARRICK VERDUZCO MD Ot 465.9 ACUTE URI NOS 09/07/2013 DARRICK VERDUZCO MD Ot 599.0 URIN TRACT INFECTION NOS 09/07/2013 DARRICK VERDUZCO MD Ot 784.0 HEADACHE 09/07/2013 DARRICK VERDUZCO MD Ot V58.67 LONG-TERM (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 INSULIN 09/07/2013 DARRICK VERDUZCO MD Ot V58.69 OTH MED,LT,CURRENT USE 09/25/2013 TUSHAR CHAUDHRY AFUA ANDREIA 300.3 AN OBCESS COMP DIS 09/25/2013 TUSHAR CHAUDHRY AFUA ANDREIA 300.3 AN OBCESS COMP DIS 09/25/2013 TUSHAR CHAUDHRY AFUA BOSWELL 300.3 AN OBCESS COMP DIS 09/25/2013 TUSHAR CHAUDHRY AFUA ANDREIA 300.3 AN OBCESS COMP DIS 09/25/2013 TUSHAR CHAUDHRY AFUA ANDREIA 300.3 AN OBCESS COMP DIS 09/25/2013 BRYAN SHARP APRN 300 .3 AN OBCESS COMP DIS 09/25/2013 ALVARO VYAS DO K 300.3 AN OBCESS COMP DIS 09/25/2013 BRYAN SHARP APRN 300 .3 AN OBCESS COMP DIS 09/25/2013 BRYAN SHARP APRN 300 .3 AN OBCESS COMP DIS 09/25/2013 LILA CHAUDHRY BRYAN 300 .3 AN OBCESS COMP DIS 09/25/2013 BRYAN SHARP APRN 300 .3 AN OBCESS COMP DIS 09/25/2013 VYAS DO, ALVARO K 300.3 AN OBCESS COMP DIS 09/25/2013 LILA DOWEL MACHINE OPERATOR, BRYAN 300 .3 AN OBCESS COMP DIS 09/25/2013 LILA DOWEL MACHINE OPERATOR, BRYAN 300 .3 AN OBCESS COMP DIS 09/25/2013 LILA DOWEL MACHINE OPERATOR, BRYAN 300 .3 AN OBCESS COMP DIS 09/25/2013 LILA DOWEL MACHINE OPERATOR, BRYAN 300 .3 AN OBCESS COMP DIS 09/25/2013 LILA DOWEL MACHINE OPERATOR, BRYAN 300 .3 AN OBCESS COMP DIS 09/25/2013 VYAS DO, ALVARO K 300.3 AN OBCESS COMP DIS 09/25/2013 VYAS DO, ALVARO K 300.3 AN OBCESS COMP DIS 09/25/2013 LILA DOWEL MACHINE OPERATOR, BRYAN 300 .3 AN OBCESS COMP DIS 09/25/2013 LILA DOWEL MACHINE OPERATOR, BRYAN 300 .3 AN OBCESS COMP DIS 09/25/2013 LILA DOWEL MACHINE OPERATOR, BRYAN 300 .3 AN OBCESS COMP DIS 09/25/2013 LILA DOWEL MACHINE OPERATOR, BRYAN 300 .3 AN OBCESS COMP DIS 09/25/2013 LILA DOWEL MACHINE OPERATOR, BRYAN 300 .3 AN OBCESS COMP DIS 11/17/2013 GAURANG STANTON DO Ot 311 DEPRESSIVE DISORDER NEC 11/17/2013 GAURANG STANTON DO Ot 368.16 PSYCHOPHYSIC VISUAL DIST 11/17/2013 GAURANG STANTON DO Ot V62.84 SUICIDAL IDEATION 02/05/2014 MAGY GUERRA, MILLICENT Lau Ot 346. 90 MIGRAINE UNSPECIFIED W/O INTRACT MGRN W/ 02/05/2014 MAGY GUERRA, MILLICENT A Ot 784. 0 HEADACHE 02/07/2014 JAZMINE GUERRA, OLGA R Ot 244. 9 HYPOTHYROIDISM NOS 02/07/2014 JAZMINE GUERRA, OLGA R Ot 250. 00 DIAB [place] WO COMPL, TYPE II OR UNSPEC TY 02/07/2014 OLGA LUCERO MD R Ot 295. 70 SCHIZOAFFECTIVE DISORDER, UNSPECIFIED 02/07/2014 OLGA LUCERO MD R Ot 305. 1 TOBACCO USE DISORDER 02/07/2014 OLGA LUCERO MD R Ot 346. 90 MIGRAINE UNSPECIFIED W/O INTRACT MGRN W/ 02/07/2014 OLGA LUCERO MD R Ot 530. 11 REFLUX ESOPHAGITIS 02/07/2014 OLGA LUCERO MD R Ot 530. 81 ESOPHAGEAL REFLUX 02/07/2014 JAZMINE GUERRA, OLGA R Ot 535. 50 UNSP GASTRITIS GASTRODUODENITIS W/O ME 02/07/2014 JAZMINE GUERRA, OLGA R Ot 535. 60 DUODENITIS, WITHOUT MENTION OF HEMORRHAG 02/07/2014 JAZMINE GUERRA, OLGA R Ot 553. 3 DIAPHRAGMATIC HERNIA 02/07/2014 JAZMINE GUERRA, OLGA R Ot V15. 81 HX OF PAST NONCOMPLIANCE 03/08/2014 AFUA FINLEY APRN 296.80 MO BIPOLAR NOS 03/08/2014 LILA DOWEL MACHINE OPERATOR, BRYAN 296 .80 MO BIPOLAR NOS 03/08/2014 ALVARO VYAS DO K 296.80 MO BIPOLAR NOS 03/08/2014 LILA DOWEL MACHINE OPERATOR, BRYAN 296 .80 MO BIPOLAR NOS 03/08/2014 LILA DOWEL MACHINE OPERATOR, BRYAN 296 .80 MO BIPOLAR NOS 03/08/2014 LILA DOWEL MACHINE OPERATOR, BRYAN 296 .80 MO BIPOLAR NOS 03/08/2014 LILA DOWEL MACHINE OPERATOR, BRYAN 296 .80 MO BIPOLAR NOS 03/08/2014 ALVARO VYAS DO K 296.80 MO BIPOLAR NOS 03/08/2014 LILA DOWEL MACHINE OPERATOR, BRYAN 296 .80 MO BIPOLAR NOS 03/08/2014 LILA DOWEL MACHINE OPERATOR, BRYAN 296 .80 MO BIPOLAR NOS 03/08/2014 LILA DOWEL MACHINE OPERATOR, BRYAN 296 .80 MO BIPOLAR NOS 03/08/2014 LILA DOWEL MACHINE OPERATOR, BRYAN 296 .80 MO BIPOLAR NOS 03/08/2014 LILA DOWEL MACHINE OPERATOR, BRYAN 296 .80 MO BIPOLAR NOS 03/08/2014 ALVARO VYAS DO K 296.80 MO BIPOLAR NOS 03/08/2014 ALVARO VYAS DO K 296.80 MO BIPOLAR NOS 03/08/2014 LILA DOWEL MACHINE OPERATOR, BRYAN 296 .80 MO BIPOLAR NOS 03/08/2014 LILA DOWEL MACHINE OPERATOR, BRYAN 296 .80 MO BIPOLAR NOS 03/08/2014 LILA DOWEL MACHINE OPERATOR, BRYAN 296 .80 MO BIPOLAR NOS 03/08/2014 LILA DOWEL MACHINE OPERATOR, BRYAN 296 .80 MO BIPOLAR NOS 03/08/2014 LILA DOWEL MACHINE OPERATOR, BRYAN 296 .80 MO BIPOLAR NOS 03/11/2014 AFUA FINLEY APRN 296.80 MO BIPOLAR NOS 03/11/2014 AFUA FINLEY APRN 300.02 AN GEN ANXIETY 03/11/2014 AFUA FINLEY APRN 314.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 03/11/2014 LILA DOWEL MACHINE OPERATOR, BRYAN 296 .80 MO BIPOLAR NOS 03/11/2014 LILA DOWEL MACHINE OPERATOR, BRYAN 300 .02 AN GEN ANXIETY 03/11/2014 LILA DOWEL MACHINE OPERATOR, BRYAN 314 .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 03/11/2014 VYAS GEE CHAPMANA K 296.80 MO BIPOLAR NOS 03/11/2014 VYAS GEE CHAPMANA K 300.02 AN GEN ANXIETY 03/11/2014 ASAEL GEE CHAPMANA K 314.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 03/11/2014 LILA DOWEL MACHINE OPERATOR, BRYAN 296 .80 MO BIPOLAR NOS 03/11/2014 LILA DOWEL MACHINE OPERATOR, BRYAN 300 .02 AN GEN ANXIETY 03/11/2014 LILA DOWEL MACHINE OPERATOR, BRYAN 314 .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 03/11/2014 LILA DOWEL MACHINE OPERATOR, BRYAN 296 .80 MO BIPOLAR NOS 03/11/2014 LILA DOWEL MACHINE OPERATOR, BRYAN 300 .02 AN GEN ANXIETY 03/11/2014 LILA DOWEL MACHINE OPERATOR, BRYAN 314 .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 03/11/2014 LILA DOWEL MACHINE OPERATOR, BRYAN 296 .80 MO BIPOLAR NOS 03/11/2014 LILA DOWEL MACHINE OPERATOR, BRYAN 300 .02 AN GEN ANXIETY 03/11/2014 LILA DOWEL MACHINE OPERATOR, BRYAN 314 .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 03/11/2014 LILA DOWEL MACHINE OPERATOR, BRYAN 296 .80 MO BIPOLAR NOS 03/11/2014 LILA DOWEL MACHINE OPERATOR, BRYAN 300 .02 AN GEN ANXIETY 03/11/2014 LILA DOWEL MACHINE OPERATOR, BRYAN 314 .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 03/11/2014 GEE VYAS DOA K 296.80 MO BIPOLAR NOS 03/11/2014 GEE VYAS DOA K 300.02 AN GEN ANXIETY 03/11/2014 VYAS GEE CHAPMANA K 314.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 03/11/2014 LILA DOWEL MACHINE OPERATOR, BRYAN 296 .80 MO BIPOLAR NOS 03/11/2014 LILA DOWEL MACHINE OPERATOR, BRYAN 300 .02 AN GEN ANXIETY 03/11/2014 LILA DOWEL MACHINE OPERATOR, BRYAN 314 .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 03/11/2014 LILA DOWEL MACHINE OPERATOR, BRYAN 296 .80 MO BIPOLAR NOS 03/11/2014 LILA DOWEL MACHINE OPERATOR, BRYAN 300 .02 AN GEN ANXIETY 03/11/2014 LILA DOWEL MACHINE OPERATOR, BRYAN 314 .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 03/11/2014 LILA DOWEL MACHINE OPERATOR, BRYAN 296 .80 MO BIPOLAR NOS 03/11/2014 LILA DOWEL MACHINE OPERATOR, BRYAN 300 .02 AN GEN ANXIETY 03/11/2014 LILA DOWEL MACHINE OPERATOR, BRYAN 314 .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 03/11/2014 LILA DOWEL MACHINE OPERATOR, BRYAN 296 .80 MO BIPOLAR NOS 03/11/2014 LILA DOWEL MACHINE OPERATOR, BRYAN 300 .02 AN GEN ANXIETY 03/11/2014 LILA DOWEL MACHINE OPERATOR, BRYAN 314 .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 03/11/2014 LILA DOWEL MACHINE OPERATOR, BRYAN 296 .80 MO BIPOLAR NOS 03/11/2014 LILA DOWEL MACHINE OPERATOR, BRYAN 300 .02 AN GEN ANXIETY 03/11/2014 LILA DOWEL MACHINE OPERATOR, BRYAN 314 .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 03/11/2014 VYAS DO ALVARO K 296.80 MO BIPOLAR NOS 03/11/2014 VYAS DO ALVARO K 300.02 AN GEN ANXIETY 03/11/2014 VYAS DO ALVARO K 314.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 03/11/2014 VYAS DO ALVARO K 296.80 MO BIPOLAR NOS 03/11/2014 VYAS DO ALVARO K 300.02 AN GEN ANXIETY 03/11/2014 VYAS DO ALVARO K 314.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 03/11/2014 LILA DOWEL MACHINE OPERATOR, BRYAN 296 .80 MO BIPOLAR NOS 03/11/2014 LILA DOWEL MACHINE OPERATOR, BRYAN 300 .02 AN GEN ANXIETY 03/11/2014 LILA DOWEL MACHINE OPERATOR, BRYAN 314 .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 03/11/2014 LILA DOWEL MACHINE OPERATOR, BRYAN 296 .80 MO BIPOLAR NOS 03/11/2014 LILA DOWEL MACHINE OPERATOR, BRYAN 300 .02 AN GEN ANXIETY 03/11/2014 LILA DOWEL MACHINE OPERATOR, BRYAN 314 .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 03/11/2014 LILA DOWEL MACHINE OPERATOR, BRYAN 296 .80 MO BIPOLAR NOS 03/11/2014 LILA DOWEL MACHINE OPERATOR, BRYAN 300 .02 AN GEN ANXIETY 03/11/2014 LILA DOWEL MACHINE OPERATOR, BRYAN 314 .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 03/11/2014 LILA DOWEL MACHINE OPERATOR, BRYAN 296 .80 MO BIPOLAR NOS 03/11/2014 LILA DOWEL MACHINE OPERATOR, BRYAN 300 .02 AN GEN ANXIETY 03/11/2014 LILA DOWEL MACHINE OPERATOR, BRYAN 314 .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 03/11/2014 LILA DOWEL MACHINE OPERATOR, BRYAN 296 .80 MO BIPOLAR NOS 03/11/2014 LILA DOWEL MACHINE OPERATOR, BRYAN 300 .02 AN GEN ANXIETY 03/11/2014 LILA DOWEL MACHINE OPERATOR, BRYAN 314 .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 05/02/2014 MERTZON ESAU CHAPMAN Ot 250. 00 DIAB [place] WO COMPL, TYPE II OR UNSPEC TY 05/02/2014 MERTZON ESAU CHAPMAN Ot 575. 11 CHRONIC CHOLECYSTITIS 06/05/2014 LILA DOWEL MACHINE OPERATOR, BRYAN 295 .11 P SCHIZO DISORG SUBCHRONIC 06/05/2014 LILA DOWEL MACHINE OPERATOR, BRYAN 295 .11 P SCHIZO DISORG SUBCHRONIC 06/05/2014 LILA DOWEL MACHINE OPERATOR, BRYAN 295 .11 P SCHIZO DISORG SUBCHRONIC 06/05/2014 LILA DOWEL MACHINE OPERATOR, BRYAN 295 .11 P SCHIZO DISORG SUBCHRONIC 06/05/2014 LILA DOWEL MACHINE OPERATOR, BRYAN 295 .11 P SCHIZO DISORG SUBCHRONIC 06/05/2014 ALVARO VYAS DO K 295.11 P SCHIZO DISORG SUBCHRONIC 06/05/2014 ALVARO VYAS DO K 295.11 P SCHIZO DISORG SUBCHRONIC 06/05/2014 LILA DOWEL MACHINE OPERATOR, BRYAN 295 .11 P SCHIZO DISORG SUBCHRONIC 06/05/2014 LILA DOWEL MACHINE OPERATOR, BRYAN 295 .11 P SCHIZO DISORG SUBCHRONIC 06/05/2014 LILA DOWEL MACHINE OPERATOR, BRYAN 295 .11 P SCHIZO DISORG SUBCHRONIC 06/05/2014 LILA DOWEL MACHINE OPERATOR, BRYAN 295 .11 P SCHIZO DISORG SUBCHRONIC 06/05/2014 LILA DOWEL MACHINE OPERATOR, BRYAN 295 .11 P SCHIZO DISORG SUBCHRONIC 06/19/2014 TANYA GONZALEZ DOWEL MACHINE OPERATOR Ot 784 .0 HEADACHE 07/14/2014 DAX GUERRA, DARRICK Fiore Ot 346.90 MIGRAINE UNSPECIFIED W/O INTRACT MGRN W/ 09/18/2014 ADAIR LUCERO LEARNING AND DEVELOPMENT OFFICER Ot 250.00 09/18/2014 ADAIR LUCERO LEARNING AND DEVELOPMENT OFFICER Ot V58.67 10/07/2014 ADAIR LUCERO LEARNING AND DEVELOPMENT OFFICER Ot 250.00 10/07/2014 ADAIR LUCERO LEARNING AND DEVELOPMENT OFFICER Ot V58.67 12/06/2014 JAZMINE GUERRA, OLGA R Ot 244. 9 HYPOTHYROIDISM NOS 12/06/2014 JAZMINE GUERRA, OLGA R Ot 250. 00 DIAB [place] WO COMPL, TYPE II OR UNSPEC TY 12/06/2014 JAZMINE GUERRA, OLGA R Ot 272. 4 HYPERLIPIDEMIA NEC/NOS 12/06/2014 JAZMINE GUERRA, OLGA R Ot 295. 90 SCHIZOPHRENIA NOS-UNSPEC 12/06/2014 OLGA LUCERO MD R Ot 296. 20 DEPRESS DISORDER-UNSPEC 12/06/2014 OLGA LUCERO MD R Ot 300. 9 UNSPECIFIED NONPSYCHOTIC MENTAL DISORDER 12/06/2014 JAZMINE GUERRA, OLGA R Ot 305. 1 TOBACCO USE DISORDER 12/06/2014 OLGA LUCERO MD R Ot 530. 81 ESOPHAGEAL REFLUX 12/06/2014 JAZMINE GUERRA, OLGA R Ot 599. 0 URIN TRACT INFECTION NOS 12/06/2014 OLGA LUCERO MD R Ot V06. 1 [id number], COMBINED [ 12/06/2014 OLGA LUCERO MD R Ot V58. 67 LONG-TERM (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 INSULIN 06/12/2015 GAURANG STANTON DO K Ot 339.12 CHRONIC TENSION TYPE HEADACHE 06/12/2015 GAURANG STANTON DO Ot 784.0 HEADACHE 07/30/2015 OLGA LUCERO MD R Ot 786. 2 08/05/2015 OLGA LUCERO MD R Ot 786. 2 08/11/2015 OLGA LUCERO MD R Ot R19. 7 08/19/2015 ADAIR LUCERO LEARNING AND DEVELOPMENT OFFICER Ot E11.9 09/01/2015 ADAIR LUCERO LEARNING AND DEVELOPMENT OFFICER Ot E11.9 09/23/2015 JAZMINE GUERRA, OLGA R Ot 787. 91 09/23/2015 OLGA LUCERO MD R Ot R19. 7 10/09/2015 OLGA LUCERO MD R Ot 787. 91 10/09/2015 OLGA LUCERO MD R Ot R19. 7 10/11/2015 DAX GUERRA, DARRICK Fiore Ot F17.210 NICOTINE DEPENDENCE, CIGARETTES, UNCOMPL 10/11/2015 DAX GUERRA, DARRICK Fiore Ot G43.909 MIGRAINE, UNSP, NOT INTRACTABLE, WITHOUT 10/23/2015 OLGA LUCERO MD R Ot 787. 91 10/23/2015 JAZMINE GUERRA, OLGA R Ot R19. 7 11/05/2015 JAZMINE GUERRA, OLGA R Ot R19. 7 DIARRHEA, UNSPECIFIED 11/12/2015 SUYAPA GUERRA, TREVIN Ot K64.0 FIRST DEGREE HEMORRHOIDS 12/10/2015 JAZMINE GUERRA, OLGA R Ot E03. 9 12/17/2015 JAZMINE GUERRA, OLGA R Ot E03. 9 01/29/2016 Ot 729.5 01/29/2016 Ot 959.7 01/29/2016 Ot E000.8 01/29/2016 Ot E849.0 01/29/2016 Ot E888.9 01/29/2016 Ot 250.00 01/29/2016 Ot 401.9 01/29/2016 Ot V58.69 01/29/2016 Ot V58.83 01/29/2016 Ot 250.00 01/29/2016 JAZMINE GUERRA, OLGA R Ot 787. 02 01/29/2016 JAZMINE GUERRA, OLGA R Ot 789. 03 01/29/2016 JAZMINE GUERRA, OLGA R Ot 789. 04 01/29/2016 JAZMINE GUERRA, OLGA R Ot 571. 8 01/29/2016 JAZMINE GUERRA, OLGA R Ot 592. 0 01/29/2016 JAZMINE GUERRA, OLGA R Ot 719. 7 01/29/2016 AFUA FINLEY LEARNING AND DEVELOPMENT OFFICER Ot V58.69 01/29/2016 AFUA FINLEY LEARNING AND DEVELOPMENT OFFICER Ot V58.83 01/29/2016 ADAIR LUCERO LEARNING AND DEVELOPMENT OFFICER Ot 250.00 01/29/2016 ADAIR LUCERO LEARNING AND DEVELOPMENT OFFICER Ot 244.9 01/29/2016 ADAIR LUCERO LEARNING AND DEVELOPMENT OFFICER Ot 250.00 01/29/2016 JAZMINE GUERRA, OLGA R Ot 571. 8 01/29/2016 JAZMINE GUERRA, OLGA R Ot 789. 01 01/29/2016 JAZMINE GUERRA, OLGA R Ot 789. 01 01/29/2016 JAZMINE GUERRA, OLGA R Ot 793. 3 01/29/2016 BERRYESAU WILDER DO Ot 575. 11 01/29/2016 BERRYESAU WILDER DO Ot V72. 63 01/29/2016 BERRYESAU WILDER DO Ot V74. 8 01/29/2016 JAZMINEADAIR LEARNING AND DEVELOPMENT OFFICER Ot 250.01 01/29/2016 JAZMINE, ADAIR Boland LEARNING AND DEVELOPMENT OFFICER Ot 250.00 01/29/2016 JAZMINEADAIR LEARNING AND DEVELOPMENT OFFICER Ot V58.67 01/29/2016 JAZMINE GUERRA, OLGA R Ot 786. 2 01/29/2016 JAZMINEADAIR LEARNING AND DEVELOPMENT OFFICER Ot E11.9 01/29/2016 SUYAPA GUERRA, TREVIN Ot R19.4 01/29/2016 SUYAPA GUERRA, JEAN-CLAUDEAAKI Ot Z01.81 8 01/29/2016 JAZMINE GUERRA, OLGA R Ot 787. 91 01/29/2016 JAZMINE GUERRA, OLGA R Ot R19. 7 01/29/2016 JAZMINE GUERRA, OLGA R Ot E03. 9 01/30/2016 JAZMINE GUERRA, OLGA R Ot E03. 9 02/18/2016 JAZMINE GUERRA, OLGA R Ot E03. 9 HYPOTHYROIDISM, UNSPECIFIED 03/03/2016 JAZMINE GUERRA, OLGA R Ot E03. 9 HYPOTHYROIDISM, UNSPECIFIED 05/25/2016 GAURANG STANTON DO Ot F17.210 NICOTINE DEPENDENCE, CIGARETTES, UNCOMPL 05/25/2016 AGURANG STANTON DO Ot M54.5 LOW BACK PAIN 05/25/2016 GAURANG STANTON DO Ot N39.0 URINARY TRACT INFECTION, SITE NOT SPECIF 05/25/2016 GAURANG STANTON DO Ot S39.012 A STRAIN OF MUSCLE, FASCIA AND TENDON OF L 05/25/2016 GAURANG STANTON DO Ot X58.XXX A EXPOSURE TO OTHER SPECIFIED FACTORS, INI 05/25/2016 GAURANG STANTON DO Ot Y92.[address] IN SINGLE-FAMILY (PRIVATE) PARISH 05/25/2016 GAURANG STANTON DO Ot Y99.8 OTHER EXTERNAL CAUSE STATUS 05/26/2016 GAURANG STANTON DO Ot F17.210 NICOTINE DEPENDENCE, CIGARETTES, UNCOMPL 05/26/2016 GAURANG STANTON DO Ot M54.5 LOW BACK PAIN 05/26/2016 GAURANG STANTON DO Ot N39.0 URINARY TRACT INFECTION, SITE NOT SPECIF 05/26/2016 GAURANG STANTON DO Ot S39.012 A STRAIN OF MUSCLE, FASCIA AND TENDON OF L 05/26/2016 GAURANG STANTON DO Ot X58.XXX A EXPOSURE TO OTHER SPECIFIED FACTORS, INI 05/26/2016 GAURANG STANTON DO Ot Y92.[address] IN SINGLE-FAMILY (PRIVATE) PARISH 05/26/2016 GAURANG STANTON DO Ot Y99.8 OTHER EXTERNAL CAUSE STATUS 06/04/2016 Ot 729.5 PAIN IN LIMB 06/04/2016 Ot 959.7 LOWE R LEG INJURY NOS 06/04/2016 Ot E000.8 OTH ER EXTERNAL CAUSE STATUS 06/04/2016 Ot E849.0 ACC IDENT IN HOME 06/04/2016 Ot E888.9 FAL L NOS 06/04/2016 Ot 250.00 SAMANTHA B [place] WO COMPL, TYPE II OR UNSPEC TY 06/04/2016 Ot 401.9 HYPE RTENSION NOS 06/04/2016 Ot V58.69 OTH MED,LT,CURRENT USE 06/04/2016 Ot V58.83 ENC OUNTER FOR THERAPEUTIC DRUG MONITORIN 06/04/2016 Ot 250.00 SAMANTHA B [place] WO COMPL, TYPE II OR UNSPEC TY 06/04/2016 JAZMINE GUERRA, OLGA R Ot 787. 02 NAUSEA ALONE 06/04/2016 JAZMINE GUERRA, OLGA R Ot 789. 03 ABDOMINAL PAIN, RIGHT LOWER QUADRANT 06/04/2016 OLGA LUCERO MD R Ot 789. 04 ABDOMINAL PAIN, LEFT LOWER QUADRANT 06/04/2016 JAZMINE GUERRA, OLGA Reinoso Ot 571. 8 CHRONIC LIVER DIS NEC 06/04/2016 OLGA LUCERO MD R Ot 592. 0 CALCULUS OF KIDNEY 06/04/2016 OLGA LUCERO MD R Ot 719. 7 DIFFICULTY IN WALKING 06/04/2016 AFUA FINLEY Ot V58.69 OTH MED,LT,CURRENT USE 06/04/2016 AFUA FINLEY Ot V58.83 ENCOUNTER FOR THERAPEUTIC DRUG MONITORIN 06/04/2016 ADAIR LUCERO Ot 250.00 DIAB [place] WO COMPL, TYPE II OR UNSPEC TY 06/04/2016 ADAIR LUCERO Ot 244.9 HYPOTHYROIDISM NOS 06/04/2016 ADAIR LUCERO LEARNING AND DEVELOPMENT OFFICER Ot 250.00 DIAB [place] WO COMPL, TYPE II OR UNSPEC TY 06/04/2016 JAZMINE GUERRA, OLGA R Ot 571. 8 CHRONIC LIVER DIS NEC 06/04/2016 OLGA LUCERO MD R Ot 789. 01 ABDOMINAL PAIN, RIGHT UPPER QUADRANT 06/04/2016 JAZMINE GUERRA, OLGA Reinoso Ot 789. 01 ABDOMINAL PAIN, RIGHT UPPER QUADRANT 06/04/2016 OLGA LUCERO MD Ot 793. 3 NOSP (ABN) FINDINGS ON RADIOLOGICAL OT 06/04/2016 ESAU BERRY DO Ot 575. 11 CHRONIC CHOLECYSTITIS 06/04/2016 ESAU BERRY DO Ot V72. 63 PRE-PROCEDURAL LABORATORY EXAMINATION 06/04/2016 BERRYESAU WILDER DO Ot V74. 8 SCREEN-BACTERIAL DIS NEC 06/04/2016 ADAIR LUCERO Ot 250.01 DIAB [place] WO COMPL, TYPE I [JUVENILE TYP 06/04/2016 ADAIR LUCERO LEARNING AND DEVELOPMENT OFFICER Ot 250.00 DIAB [place] WO COMPL, TYPE II OR UNSPEC TY 06/04/2016 ADAIR LUCERO LEARNING AND DEVELOPMENT OFFICER Ot V58.67 LONG-TERM (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 INSULIN 06/04/2016 OLGA LUCERO MD Ot 786. 2 COUGH 06/04/2016 ADAIR LUCERO Ot E11.9 TYPE 2 DIABETES MELLITUS WITHOUT COMPLIC 06/04/2016 SUYAPA GUERRA, TREVIN Ot R19.4 CHANGE IN BOWEL HABIT 06/04/2016 SUYAPA GUERRA, TREVIN Ot Z01.81 8 ENCOUNTER FOR OTHER PREPROCEDURAL EXAMIN 06/04/2016 JAZMINE GUERRA, OLGA R Ot 787. 91 DIARRHEA 06/04/2016 OLGA LUCERO MD R Ot R19. 7 DIARRHEA, UNSPECIFIED 06/04/2016 OLGA LUCERO MD R Ot E03. 9 HYPOTHYROIDISM, UNSPECIFIED 06/04/2016 OLGA LUCERO MD R Ot E03. 9 HYPOTHYROIDISM, UNSPECIFIED 06/07/2016 OLGA LUCERO MD R Ot M25.551 PAIN IN RIGHT HIP 06/07/2016 OLGA LUCERO MD R Ot M47.894 OTHER SPONDYLOSIS, THORACIC REGION 06/07/2016 SEGLIE MD, OLGA R Ot M51. 27 OTHER INTERVERTEBRAL DISC DISPLACEMENT, 06/07/2016 JAZMINE GUERRA OLGA R Ot M54. 16 RADICULOPATHY, LUMBAR REGION 06/07/2016 JAZMINE GUERRA OLGA R Ot N83. 20 UNSPECIFIED OVARIAN CYSTS 06/07/2016 JAZMINE GUERRA OLGA R Ot N88. 8 OTHER SPECIFIED NONINFLAMMATORY DISORDER 06/08/2016 JAZMINE GUERRA OLGA R Ot M25.551 PAIN IN RIGHT HIP 06/08/2016 JAZMINE GUERRA OLGA R Ot M47.894 OTHER SPONDYLOSIS, THORACIC REGION 06/08/2016 JAZMINE GUERRA OLGA R Ot M51. 27 OTHER INTERVERTEBRAL DISC DISPLACEMENT, 06/08/2016 JAZMINE GUERRA OLGA R Ot M54. 16 RADICULOPATHY, LUMBAR REGION 06/08/2016 BRENDA LUCERO MDYD R Ot N83. 20 UNSPECIFIED OVARIAN CYSTS 06/08/2016 JAZMINE GUERRA OLGA R Ot N88. 8 OTHER SPECIFIED NONINFLAMMATORY DISORDER 06/10/2016 JAZMINE GUERRA OLGA R Ot M25.551 PAIN IN RIGHT HIP 06/10/2016 JAZMINE GUERRA OLGA R Ot M47.894 OTHER SPONDYLOSIS, THORACIC REGION 06/10/2016 JAZMINE GUERRA OLGA R Ot M51. 27 OTHER INTERVERTEBRAL DISC DISPLACEMENT, 06/10/2016 JAZMINE GUERRA OLGA R Ot M54. 16 RADICULOPATHY, LUMBAR REGION 06/10/2016 BRENDA LUCERO MDYD R Ot N83. 20 UNSPECIFIED OVARIAN CYSTS 06/10/2016 JAZMINE GUERRA OLGA R Ot N88. 8 OTHER SPECIFIED NONINFLAMMATORY DISORDER 06/25/2016 JAZMINE GUERRA OLGA R Ot M25.551 PAIN IN RIGHT HIP 06/25/2016 JAZMINE GUERRA OLGA R Ot M47.894 OTHER SPONDYLOSIS, THORACIC REGION 06/25/2016 JAZMINE GUERRA OLGA R Ot M51. 27 OTHER INTERVERTEBRAL DISC DISPLACEMENT, 06/25/2016 JAZMINE GUERRA OLGA R Ot M54. 16 RADICULOPATHY, LUMBAR REGION 06/25/2016 JAZMINE GUERRA OLGA R Ot N83. 20 UNSPECIFIED OVARIAN CYSTS 06/25/2016 OLGA LUCERO MD R Ot N88. 8 OTHER SPECIFIED NONINFLAMMATORY DISORDER 07/15/2016 OLGA LUCERO MD R Ot M25.551 PAIN IN RIGHT HIP 07/15/2016 OLGA LUCERO MD R Ot M47.894 OTHER SPONDYLOSIS, THORACIC REGION 07/15/2016 OLGA LUCERO MD R Ot M51. 27 OTHER INTERVERTEBRAL DISC DISPLACEMENT, 07/15/2016 OLGA LUCERO MD R Ot M54. 16 RADICULOPATHY, LUMBAR REGION 07/15/2016 OLGA LUCERO MD R Ot N83. 20 UNSPECIFIED OVARIAN CYSTS 07/15/2016 BRENDA LUCERO MDYD R Ot N88. 8 OTHER SPECIFIED NONINFLAMMATORY DISORDER 09/23/2016 Ot 250.00 SAMANTHA B [place] WO COMPL, TYPE II OR UNSPEC TY 09/23/2016 Ot 401.9 HYPE RTENSION NOS 09/23/2016 Ot V58.69 OTH MED,LT,CURRENT USE 09/23/2016 Ot V58.83 ENC OUNTER FOR THERAPEUTIC DRUG MONITORIN 09/23/2016 Ot 250.00 SAMANTHA B [place] WO COMPL, TYPE II OR UNSPEC TY 09/23/2016 JAZMINE GUERRA OLGA R Ot 787. 02 NAUSEA ALONE 09/23/2016 JAZMINE GUERRA OLGA R Ot 789. 03 ABDOMINAL PAIN, RIGHT LOWER QUADRANT 09/23/2016 JAZMINE GUERRA OLGA R Ot 789. 04 ABDOMINAL PAIN, LEFT LOWER QUADRANT 09/23/2016 JAZMINE GUERRA OLGA R Ot 571. 8 CHRONIC LIVER DIS NEC 09/23/2016 JAZMINE GUERRA OLGA R Ot 592. 0 CALCULUS OF KIDNEY 09/23/2016 JAZMINE GUERRA OLGA R Ot 719. 7 DIFFICULTY IN WALKING 09/23/2016 AFUA FINLEY LEARNING AND DEVELOPMENT OFFICER Ot V58.69 OTH MED,LT,CURRENT USE 09/23/2016 AFUA FINLEY LEARNING AND DEVELOPMENT OFFICER Ot V58.83 ENCOUNTER FOR THERAPEUTIC DRUG MONITORIN 09/23/2016 ADAIR LUCERO LEARNING AND DEVELOPMENT OFFICER Ot 250.00 DIAB [place] WO COMPL, TYPE II OR UNSPEC TY 09/23/2016 ADAIR LUCERO LEARNING AND DEVELOPMENT OFFICER Ot 244.9 HYPOTHYROIDISM NOS 09/23/2016 ADAIR LUCERO LEARNING AND DEVELOPMENT OFFICER Ot 250.00 DIAB [place] WO COMPL, TYPE II OR UNSPEC TY 09/23/2016 OLGA LUCERO MD R Ot 571. 8 CHRONIC LIVER DIS NEC 09/23/2016 OLGA LUCERO MD R Ot 789. 01 ABDOMINAL PAIN, RIGHT UPPER QUADRANT 09/23/2016 OLGA LUCERO MD R Ot 789. 01 ABDOMINAL PAIN, RIGHT UPPER QUADRANT 09/23/2016 OLGA LUCERO MD Ot 793. 3 NOSP (ABN) FINDINGS ON RADIOLOGICAL OT 09/23/2016 ESAU BERRY DO Ot 575. 11 CHRONIC CHOLECYSTITIS 09/23/2016 BERRY ESAU CHAPMAN Ot V72. 63 PRE-PROCEDURAL LABORATORY EXAMINATION 09/23/2016 BERRY ESAU CHAPMAN Ot V74. 8 SCREEN-BACTERIAL DIS NEC 09/23/2016 ADAIR LUCERO Ot 250.01 DIAB [place] WO COMPL, TYPE I [JUVENILE TYP 09/23/2016 ADAIR LUCERO Ot 250.00 DIAB [place] WO COMPL, TYPE II OR UNSPEC TY 09/23/2016 ADAIR LUCERO Ot V58.67 LONG-TERM (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 INSULIN 09/23/2016 OLGA LUCERO MD R Ot 786. 2 COUGH 09/23/2016 ADAIR LUCERO Ot E11.9 TYPE 2 DIABETES MELLITUS WITHOUT COMPLIC 09/23/2016 TREVIN DALE MD Ot R19.4 CHANGE IN BOWEL HABIT 09/23/2016 TREVIN DALE MD Ot Z01.81 8 ENCOUNTER FOR OTHER PREPROCEDURAL EXAMIN 09/23/2016 OLGA LUCERO MD R Ot 787. 91 DIARRHEA 09/23/2016 OLGA LUCERO MD R Ot R19. 7 DIARRHEA, UNSPECIFIED 09/23/2016 OLGA LUCERO MD R Ot E03. 9 HYPOTHYROIDISM, UNSPECIFIED 09/23/2016 OLGA LUCERO MD R Ot E03. 9 HYPOTHYROIDISM, UNSPECIFIED 09/23/2016 OLGA LUCERO MD R Ot M25.551 PAIN IN RIGHT HIP 09/23/2016 OLGA LUCERO MD R Ot M47.894 OTHER SPONDYLOSIS, THORACIC REGION 09/23/2016 OLGA LUCERO MD R Ot M51. 27 OTHER INTERVERTEBRAL DISC DISPLACEMENT, 09/23/2016 JAZMINE GUERRA, OLGA R Ot M54. 16 RADICULOPATHY, LUMBAR REGION 09/23/2016 JAZMINE GUERRA, OLGA R Ot N83. 20 UNSPECIFIED OVARIAN CYSTS 09/23/2016 JAZMINE GUERRA, OLGA R Ot N88. 8 OTHER SPECIFIED NONINFLAMMATORY DISORDER 09/23/2016 ADAIR LUCERO LEARNING AND DEVELOPMENT OFFICER Ot E11.9 TYPE 2 DIABETES MELLITUS WITHOUT COMPLIC 09/23/2016 ADAIR LUCERO LEARNING AND DEVELOPMENT OFFICER Ot Z79.4 PRISON (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 INSULIN 09/24/2016 ADAIR LUCERO LEARNING AND DEVELOPMENT OFFICER Ot E11.9 TYPE 2 DIABETES MELLITUS WITHOUT COMPLIC 09/24/2016 ADAIR LUCERO LEARNING AND DEVELOPMENT OFFICER Ot Z79.4 HOME HEALTH ADMINISTRATOR (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 INSULIN 09/29/2016 ADAIR LUCERO LEARNING AND DEVELOPMENT OFFICER Ot E11.9 TYPE 2 DIABETES MELLITUS WITHOUT COMPLIC 09/29/2016 ADAIR LUCERO LEARNING AND DEVELOPMENT OFFICER Ot Z79.4 HOME HEALTH ADMINISTRATOR (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 INSULIN 10/21/2016 ADAIR LUCERO LEARNING AND DEVELOPMENT OFFICER Ot E11.9 TYPE 2 DIABETES MELLITUS WITHOUT COMPLIC 10/21/2016 ADAIR LUCERO LEARNING AND DEVELOPMENT OFFICER Ot Z79.4 HOME HEALTH ADMINISTRATOR (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 INSULIN 10/26/2016 ADAIR LUCERO LEARNING AND DEVELOPMENT OFFICER Ot E11.9 TYPE 2 DIABETES MELLITUS WITHOUT COMPLIC 10/26/2016 ADAIR LUCERO LEARNING AND DEVELOPMENT OFFICER Ot Z79.4 PRISON (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 INSULIN 01/25/2017 FRANCISCO ALAN DO, Ot E11.65 TYPE 2 DIABETES MELLITUS WITH HYPERGLYCE 01/25/2017 FRANCISCO ALAN DO Ot Z79.4 HOME HEALTH ADMINISTRATOR (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 INSULIN 01/25/2017 FRANCISCO ALAN DO Ot Z79.84 PRISON (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 ORAL HYPOGLYC 01/25/2017 FRANCISCO ALAN DO Ot Z79.899 OTHER HOME HEALTH ADMINISTRATOR (CURRENT) DRUG THERAPY 01/26/2017 FRANCISCO ALAN DO, Ot E11.65 TYPE 2 DIABETES MELLITUS WITH HYPERGLYCE 01/26/2017 FRANCISCO ALAN DO Ot Z79.4 PRISON (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 INSULIN 01/26/2017 FRANCISCO ALAN DO Ot Z79.84 HOME HEALTH ADMINISTRATOR (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 ORAL HYPOGLYC 01/26/2017 FRANCISCO ALAN DO Ot Z79.899 OTHER HOME HEALTH ADMINISTRATOR (CURRENT) DRUG THERAPY 03/24/2017 Ot 250.00 SAMANTHA Neymar IBRAHIM WO COMPL, TYPE II OR UNSPEC TY 03/24/2017 Ot 784.0 HEAD ACHE 03/24/2017 Ot V58.67 KIRTI G-TERM (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 INSULIN 05/03/2017 JESUS GUERRA, JOHN [...] WITHOUT 05/03/2017 JOHN LEE MD Ot Z79.4 HOME HEALTH ADMINISTRATOR (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 INSULIN 05/03/2017 JOHN LEE MD Ot Z79.84 HOME HEALTH ADMINISTRATOR (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 ORAL HYPOGLYC 05/03/2017 JOHN [...] WITHOUT 05/03/2017 JOHN LEE MD Ot Z79.4 PRISON (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 INSULIN 05/03/2017 JOHN LEE MD Ot Z79.84 PRISON (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 ORAL HYPOGLYC 05/03/2017 JOHN LEE MD Ot Z90.49 ACQUIRED ABSENCE OF OTHER SPECIFIED PART 05/03/2017 JOHN LEE MD Ot Z91.5 PERSONAL HISTORY OF SELF-HARM 07/09/2017 IVORY DICKSON MD Ot B37. 3 CANDIDIASIS OF VULVA AND VAGINA 07/09/2017 IVORY DICKSON MD Ot E03. 9 HYPOTHYROIDISM, UNSPECIFIED 07/09/2017 IVORY DICKSON MD Ot E11.649 TYPE 2 DIABETES MELLITUS WITH HYPOGLYCEM 07/09/2017 IVORY DICKSON MD Ot E78. 00 PURE HYPERCHOLESTEROLEMIA, UNSPECIFIED 07/09/2017 IVORY DICKSON MD Ot F17.210 NICOTINE DEPENDENCE, CIGARETTES, UNCOMPL 07/09/2017 IVORY DICKSON MD Ot F20. 9 SCHIZOPHRENIA, UNSPECIFIED 07/09/2017 IVORY DICKSON MD Ot F32. 9 MAJOR DEPRESSIVE DISORDER, SINGLE EPISOD 07/09/2017 IVORY DICKSON MD Ot F41. 9 ANXIETY DISORDER, UNSPECIFIED 07/09/2017 IVORY DICKSON MD Ot F90. 9 ATTENTION-DEFICIT HYPERACTIVITY DISORDER 07/09/2017 IVORY DICKSON MD Ot G43.909 MIGRAINE, UNSP, NOT INTRACTABLE, WITHOUT 07/09/2017 IVORY DICKSON MD Ot K21. 9 GASTRO-ESOPHAGEAL REFLUX DISEASE WITHOUT 07/09/2017 IVORY DICKSON MD Ot N39. 0 URINARY TRACT INFECTION, SITE NOT SPECIF 07/09/2017 IVORY DICKSON MD Ot R73. 9 HYPERGLYCEMIA, UNSPECIFIED 07/09/2017 IVORY DICKSON MD Ot Z79. 4 PRISON (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 INSULIN 07/09/2017 IVORY DICKSON MD Ot Z79. 84 HOME HEALTH ADMINISTRATOR (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 ORAL HYPOGLYC 07/09/2017 IVORY DICKSON MD Ot Z82. 49 FAMILY HX OF ISCHEM HEART DIS AND OTH DI 07/09/2017 IVORY DICKSON MD Ot Z90. 49 ACQUIRED ABSENCE OF OTHER SPECIFIED PART 07/09/2017 IVORY DICKSON MD Ot Z91. 5 PERSONAL HISTORY OF SELF-HARM 07/09/2017 Ot 250.00 SAMANTHA B [place] WO COMPL, TYPE II OR UNSPEC TY 07/09/2017 OLGA LUCERO MD R Ot 787. 02 NAUSEA ALONE 07/09/2017 OLGA LUCERO MD R Ot 789. 03 ABDOMINAL PAIN, RIGHT LOWER QUADRANT 07/09/2017 OLGA LUCERO MD R Ot 789. 04 ABDOMINAL PAIN, LEFT LOWER QUADRANT 07/09/2017 OLGA LUCERO MD R Ot 571. 8 CHRONIC LIVER DIS NEC 07/09/2017 OLGA LUCERO MD R Ot 592. 0 CALCULUS OF KIDNEY 07/09/2017 OLGA LUCERO MD R Ot 719. 7 DIFFICULTY IN WALKING 07/09/2017 AFUA FINLEY Arleth PLATT Ot V58.69 OT MED,LT,CURRENT USE 07/09/2017 FINLEYAFUA Arleth LEARNING AND DEVELOPMENT OFFICER Ot V58.83 ENCOUNTER FOR THERAPEUTIC DRUG MONITORIN 07/09/2017 ADAIR LUCERO LEARNING AND DEVELOPMENT OFFICER Ot 250.00 DIAB [place] WO COMPL, TYPE II OR UNSPEC TY 07/09/2017 ADAIR LUCERO LEARNING AND DEVELOPMENT OFFICER Ot 244.9 HYPOTHYROIDISM NOS 07/09/2017 ADAIR LUCERO LEARNING AND DEVELOPMENT OFFICER Ot 250.00 DIAB [place] WO COMPL, TYPE II OR UNSPEC TY 07/09/2017 JAZMINE GUERRA, OLGA R Ot 571. 8 CHRONIC LIVER DIS NEC 07/09/2017 OLGA LUCERO MD R Ot 789. 01 ABDOMINAL PAIN, RIGHT UPPER QUADRANT 07/09/2017 OLGA LUCERO MD R Ot 789. 01 ABDOMINAL PAIN, RIGHT UPPER QUADRANT 07/09/2017 OLGA LUCERO MD R Ot 793. 3 NOSP (ABN) FINDINGS ON RADIOLOGICAL OT 07/09/2017 ESAU BERRY DO Ot 575. 11 CHRONIC CHOLECYSTITIS 07/09/2017 ESAU BERRY DO Ot V72. 63 PRE-PROCEDURAL LABORATORY EXAMINATION 07/09/2017 ESAU BERRY DO Ot V74. 8 SCREEN-BACTERIAL DIS NEC 07/09/2017 ADAIR LUCERO LEARNING AND DEVELOPMENT OFFICER Ot 250.01 DIAB [place] WO COMPL, TYPE I [JUVENILE TYP 07/09/2017 ADAIR LUCERO LEARNING AND DEVELOPMENT OFFICER Ot 250.00 DIAB [place] WO COMPL, TYPE II OR UNSPEC TY 07/09/2017 ADAIR LUCERO Ot V58.67 LONG-TERM (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 INSULIN 07/09/2017 OLGA LUCERO MD R Ot 786. 2 COUGH 07/09/2017 ADAIR LUCERO Ot E11.9 TYPE 2 DIABETES MELLITUS WITHOUT COMPLIC 07/09/2017 TREVIN DALE MD Ot R19.4 CHANGE IN BOWEL HABIT 07/09/2017 TREVIN DALE MD Ot Z01.81 8 ENCOUNTER FOR OTHER PREPROCEDURAL EXAMIN 07/09/2017 OLGA LUCERO MD R Ot 787. 91 DIARRHEA 07/09/2017 OLGA LUCERO MD R Ot R19. 7 DIARRHEA, UNSPECIFIED 07/09/2017 OLGA LUCERO MD R Ot E03. 9 HYPOTHYROIDISM, UNSPECIFIED 07/09/2017 OLGA LUCERO MD R Ot E03. 9 HYPOTHYROIDISM, UNSPECIFIED 07/09/2017 JAZMINE GUERRA OLGA R Ot M25.551 PAIN IN RIGHT HIP 07/09/2017 JAZMINE GUERRA OLGA R Ot M47.894 OTHER SPONDYLOSIS, THORACIC REGION 07/09/2017 BRENDA LUCERO MDYD R Ot M51. 27 OTHER INTERVERTEBRAL DISC DISPLACEMENT, 07/09/2017 OLGA LUCERO MD R Ot M54. 16 RADICULOPATHY, LUMBAR REGION 07/09/2017 OLGA LUCERO MD R Ot N83. 20 UNSPECIFIED OVARIAN CYSTS 07/09/2017 OLGA LUCERO MD R Ot N88. 8 OTHER SPECIFIED NONINFLAMMATORY DISORDER 07/09/2017 ADAIR LUCERO Ot E11.9 TYPE 2 DIABETES MELLITUS WITHOUT COMPLIC 07/09/2017 ADAIR LUCERO Ot Z79.4 PRISON (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 INSULIN 07/11/2017 IVORY DICKSON MD Ot B37. 3 CANDIDIASIS OF VULVA AND VAGINA 07/11/2017 IVORY DICKSON MD Ot E03. 9 HYPOTHYROIDISM, UNSPECIFIED 07/11/2017 IVORY DICKSON MD Ot E11.649 TYPE 2 DIABETES MELLITUS WITH HYPOGLYCEM 07/11/2017 IVORY DICKSON MD Ot E78. 00 PURE HYPERCHOLESTEROLEMIA, UNSPECIFIED 07/11/2017 IVORY DICKSON MD Ot F17.210 NICOTINE DEPENDENCE, CIGARETTES, UNCOMPL 07/11/2017 IVORY DICKSON MD Ot F20. 9 SCHIZOPHRENIA, UNSPECIFIED 07/11/2017 IVORY DICKSNO MD Ot F32. 9 MAJOR DEPRESSIVE DISORDER, SINGLE EPISOD 07/11/2017 IVORY DICKSON MD Ot F41. 9 ANXIETY DISORDER, UNSPECIFIED 07/11/2017 IVORY DICKSON MD Ot F90. 9 ATTENTION-DEFICIT HYPERACTIVITY DISORDER 07/11/2017 IVORY DICKSON MD Ot G43.909 MIGRAINE, UNSP, NOT INTRACTABLE, WITHOUT 07/11/2017 IVORY DICKSON MD Ot K21. 9 GASTRO-ESOPHAGEAL REFLUX DISEASE WITHOUT 07/11/2017 IVORY DICKSON MD Ot N39. 0 URINARY TRACT INFECTION, SITE NOT SPECIF 07/11/2017 IVORY DICKSON MD Ot R73. 9 HYPERGLYCEMIA, UNSPECIFIED 07/11/2017 IVORY DICKSON MD Ot Z79. 4 HOME HEALTH ADMINISTRATOR (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 INSULIN 07/11/2017 IVORY DICKSON MD Ot Z79. 84 HOME HEALTH ADMINISTRATOR (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 ORAL HYPOGLYC 07/11/2017 IVORY DICKSON MD Ot Z82. 49 FAMILY HX OF ISCHEM HEART DIS AND OTH DI 07/11/2017 IVORY DICKSON MD Ot Z90. 49 ACQUIRED ABSENCE OF OTHER SPECIFIED PART 07/11/2017 IVORY DICKSON MD Ot Z91. 5 PERSONAL HISTORY OF SELF-HARM 07/29/2017 IVORY DICKSON MD Ot E03. 9 HYPOTHYROIDISM, UNSPECIFIED 07/29/2017 IVORY DICKSON MD Ot E11. 9 TYPE 2 DIABETES MELLITUS WITHOUT COMPLIC 07/29/2017 IVORY DICKSON MD Ot F17.210 NICOTINE DEPENDENCE, CIGARETTES, UNCOMPL 07/29/2017 IVORY DICKSON MD Ot F20. 9 SCHIZOPHRENIA, UNSPECIFIED 07/29/2017 IVORY DICKSON MD Ot F32. 9 MAJOR DEPRESSIVE DISORDER, SINGLE EPISOD 07/29/2017 IVORY DICKSON MD Ot F41. 9 ANXIETY DISORDER, UNSPECIFIED 07/29/2017 IVORY DICKSON MD Ot F90. 9 ATTENTION-DEFICIT HYPERACTIVITY DISORDER 07/29/2017 IVORY DICKSON MD Ot G43.909 MIGRAINE, UNSP, NOT INTRACTABLE, WITHOUT 07/29/2017 IVORY DICKSON MD Ot H54. 3 UNQUALIFIED VISUAL LOSS, BOTH EYES 07/29/2017 IVORY DICKSON MD Ot K21. 9 GASTRO-ESOPHAGEAL REFLUX DISEASE WITHOUT 07/29/2017 IVORY DICKSON MD Ot M54. 5 LOW BACK PAIN 07/29/2017 IVORY DICKSON MD Ot Z79. 4 HOME HEALTH ADMINISTRATOR (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 INSULIN 07/29/2017 IVORY DICKSON MD Ot Z87.440 PERSONAL HISTORY OF URINARY (TRACT) INFE 07/29/2017 IVORY DICKSON MD Ot Z90. 49 ACQUIRED ABSENCE OF OTHER SPECIFIED PART 07/29/2017 YESSI GUERRA, IVORY Schwartz Ot Z91. 5 PERSONAL HISTORY OF SELF-HARM 08/12/2017 JAZMINE GUERRA, OLGA R Ot E22. 9 HYPERFUNCTION OF PITUITARY GLAND, UNSPEC 08/31/2017 OLGA LUCERO MD Ot E22. 9 HYPERFUNCTION OF PITUITARY GLAND, UNSPEC 09/09/2017 OLGA LUCERO MD R Ot E22. 9 HYPERFUNCTION OF PITUITARY GLAND, UNSPEC 12/23/2017 Ot 250.00 SAMANTHA B [place] WO COMPL, TYPE II OR UNSPEC TY 12/23/2017 OLGA LUCERO MD R Ot 787. 02 NAUSEA ALONE 12/23/2017 OLGA LUCERO MD R Ot 789. 03 ABDOMINAL PAIN, RIGHT LOWER QUADRANT 12/23/2017 OLGA LUCERO MD Ot 789. 04 ABDOMINAL PAIN, LEFT LOWER QUADRANT 12/23/2017 OLGA LUCERO MD R Ot 571. 8 CHRONIC LIVER DIS NEC 12/23/2017 OLGA LUCERO MD R Ot 592. 0 CALCULUS OF KIDNEY 12/23/2017 OLGA LUCERO MD R Ot 719. 7 DIFFICULTY IN WALKING 12/23/2017 AFUA FINLEY LEARNING AND DEVELOPMENT OFFICER Ot V58.69 OTH MED,LT,CURRENT USE 12/23/2017 AFUA FINLEY LEARNING AND DEVELOPMENT OFFICER Ot V58.83 ENCOUNTER FOR THERAPEUTIC DRUG MONITORIN 12/23/2017 ADAIR LUCERO LEARNING AND DEVELOPMENT OFFICER Ot 250.00 DIAB [place] WO COMPL, TYPE II OR UNSPEC TY 12/23/2017 ADAIR LUCERO LEARNING AND DEVELOPMENT OFFICER Ot 244.9 HYPOTHYROIDISM NOS 12/23/2017 ADAIR LUCERO LEARNING AND DEVELOPMENT OFFICER Ot 250.00 DIAB [place] WO COMPL, TYPE II OR UNSPEC TY 12/23/2017 OLGA LUCERO MD R Ot 571. 8 CHRONIC LIVER DIS NEC 12/23/2017 OLGA LUCERO MD R Ot 789. 01 ABDOMINAL PAIN, RIGHT UPPER QUADRANT 12/23/2017 OLGA LUCERO MD R Ot 789. 01 ABDOMINAL PAIN, RIGHT UPPER QUADRANT 12/23/2017 OLGA LUCERO MD R Ot 793. 3 NOSP (ABN) FINDINGS ON RADIOLOGICAL OT 12/23/2017 ESAU BERRY DO Ot 575. 11 CHRONIC CHOLECYSTITIS 12/23/2017 ESAU BERRY DO Ot V72. 63 PRE-PROCEDURAL LABORATORY EXAMINATION 12/23/2017 ESAU BERRY DO Ot V74. 8 SCREEN-BACTERIAL DIS NEC 12/23/2017 ADAIR LUCERO Ot 250.01 DIAB [place] WO COMPL, TYPE I [JUVENILE TYP 12/23/2017 ADAIR LUCERO Ot 250.00 DIAB [place] WO COMPL, TYPE II OR UNSPEC TY 12/23/2017 ADAIR LUCERO Ot V58.67 LONG-TERM (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 INSULIN 12/23/2017 OLGA LUCERO MD R Ot 786. 2 COUGH 12/23/2017 ADAIR LUCERO Ot E11.9 TYPE 2 DIABETES MELLITUS WITHOUT COMPLIC 12/23/2017 TREVIN DALE MD Ot R19.4 CHANGE IN BOWEL HABIT 12/23/2017 TREVIN DALE MD Ot Z01.81 8 ENCOUNTER FOR OTHER PREPROCEDURAL EXAMIN 12/23/2017 OLGA LUCERO MD R Ot 787. 91 DIARRHEA 12/23/2017 OLGA LUCERO MD R Ot R19. 7 DIARRHEA, UNSPECIFIED 12/23/2017 OLGA LUCERO MD R Ot E03. 9 HYPOTHYROIDISM, UNSPECIFIED 12/23/2017 OLGA LUCERO MD R Ot E03. 9 HYPOTHYROIDISM, UNSPECIFIED 12/23/2017 OLGA LUCERO MD R Ot M25.551 PAIN IN RIGHT HIP 12/23/2017 OLGA LUCERO MD R Ot M47.894 OTHER SPONDYLOSIS, THORACIC REGION 12/23/2017 OLGA LUCERO MD R Ot M51. 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 16 RADICULOPATHY, LUMBAR REGION 12/23/2017 OLGA LUCERO MD R Ot N83. 20 UNSPECIFIED OVARIAN CYSTS 12/23/2017 OLGA LUCERO MD R Ot N88. 8 OTHER SPECIFIED NONINFLAMMATORY DISORDER 12/23/2017 ADAIR LUCERO Ot E11.9 TYPE 2 DIABETES MELLITUS WITHOUT COMPLIC 12/23/2017 ADAIR LUCERO Ot Z79.4 HOME HEALTH ADMINISTRATOR (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 INSULIN 12/23/2017 OLGA LUCERO MD R Ot E22. 9 HYPERFUNCTION OF PITUITARY GLAND, UNSPEC 12/23/2017 TINY [...] 12/27/2017 ROMY DO, GAURANG K Ot Z79.4 HOME HEALTH ADMINISTRATOR (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 INSULIN 12/27/2017 ROMY DO, GAURANG K Ot Z79.52 HOME HEALTH ADMINISTRATOR (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 SYSTEMIC STER 12/27/2017 ROMY DO, GAURANG K Ot Z88.0 ALLERGY STATUS TO PENICILLIN 12/27/2017 ROMY DO, GAURANG K Ot Z88.1 ALLERGY STATUS TO OTHER ANTIBIOTIC AGENT 12/27/2017 ROMY DO, GAURANG K Ot Z90.49 ACQUIRED ABSENCE OF OTHER SPECIFIED PART 12/27/2017 TINY ALMENDAREZ DOWEL MACHINE OPERATOR Ot E03.9 HYPOTHYROIDISM, UNSPECIFIED 12/27/2017 TINY ALMENDAREZ DOWEL MACHINE OPERATOR Ot E10.9 TYPE 1 DIABETES MELLITUS WITHOUT COMPLIC 12/27/2017 TANESHA, TINY R DOWEL MACHINE OPERATOR Ot R 42 DIZZINESS AND GIDDINESS 12/29/2017 ROMY DO, GAURANG [...] K Ot K59.00 CONSTIPATION, UNSPECIFIED 12/29/2017 ROMY DO, GAURANG K Ot R10.10 UPPER ABDOMINAL PAIN, UNSPECIFIED 12/29/2017 ROMY DO, GAURANG K Ot Z79.4 PRISON (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 INSULIN 12/29/2017 HULLS COVE DO, GAURANG K Ot Z79.52 HOME HEALTH ADMINISTRATOR (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 SYSTEMIC STER 12/29/2017 HULL[place] COVE DO, GAURANG K Ot Z88.0 ALLERGY STATUS TO PENICILLIN 12/29/2017 HULL[place] COVE DO, GAURANG K Ot Z88.1 ALLERGY STATUS TO OTHER ANTIBIOTIC AGENT 12/29/2017 HULL[place] COVE DO, GAURANG K Ot Z90.49 ACQUIRED ABSENCE OF OTHER SPECIFIED PART 01/13/2018 TINY ALMENDAREZ APRN Ot E03.9 HYPOTHYROIDISM, UNSPECIFIED 01/13/2018 TINY ALMENDAREZ DOWEL MACHINE OPERATOR Ot E10.9 TYPE 1 DIABETES MELLITUS WITHOUT COMPLIC 01/13/2018 TINY ALMENDAREZ DOWEL MACHINE OPERATOR Ot R 42 DIZZINESS AND GIDDINESS 01/30/2018 INDY MCCLAIN MD Ot E03. 9 HYPOTHYROIDISM, UNSPECIFIED 01/30/2018 INDY MCCLAIN MD Ot E11. 9 TYPE 2 DIABETES MELLITUS WITHOUT COMPLIC 01/30/2018 INDY MCCLAIN MD Ot E66. 9 OBESITY, UNSPECIFIED 01/30/2018 INDY MCCLAIN MD Ot E83. 42 HYPOMAGNESEMIA 01/30/2018 INDY MCCLAIN MD Ot E87. 6 HYPOKALEMIA 01/30/2018 INDY MCCLAIN MD Ot F17.210 NICOTINE DEPENDENCE, CIGARETTES, UNCOMPL 01/30/2018 INDY MCCLAIN MD Ot F20. 9 SCHIZOPHRENIA, UNSPECIFIED 01/30/2018 INDY MCCLAIN MD Ot F32. 9 MAJOR DEPRESSIVE DISORDER, SINGLE EPISOD 01/30/2018 INDY MCCLAIN MD Ot F41. 9 ANXIETY DISORDER, UNSPECIFIED 01/30/2018 INDY MCCLAIN MD Ot F90. 9 ATTENTION-DEFICIT HYPERACTIVITY DISORDER 01/30/2018 INDY MCCLAIN MD Ot K21. 9 GASTRO-ESOPHAGEAL REFLUX DISEASE WITHOUT 01/30/2018 INDY MCCLAIN MD Ot N39. 0 URINARY TRACT INFECTION, SITE NOT SPECIF 01/30/2018 INDY MCCLAIN MD Ot R45.851 SUICIDAL IDEATIONS 01/30/2018 INDY MCCLAIN MD Ot Z68. 32 BODY MASS INDEX (BMI) 32.0-32.9, ADULT 01/30/2018 INDY MCCLAIN MD Ot Z79. 4 PRISON (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 INSULIN 01/30/2018 INDY MCCLAIN MD Ot Z79.899 OTHER PRISON (CURRENT) DRUG THERAPY 03/12/2018 TWILA LAWLER MD Ot E03 .9 HYPOTHYROIDISM, UNSPECIFIED 03/12/2018 TWILA LAWLER MD Ot E11 .9 TYPE 2 DIABETES MELLITUS WITHOUT COMPLIC 03/12/2018 TWILA LAWLER MD Ot E66 .9 OBESITY, UNSPECIFIED 03/12/2018 TWILA LAWLER MD Ot F17.210 NICOTINE DEPENDENCE, CIGARETTES, UNCOMPL 03/12/2018 TWILA LAWLER MD Ot F20 .9 SCHIZOPHRENIA, UNSPECIFIED 03/12/2018 TWILA LAWLER MD Ot F32 .9 MAJOR DEPRESSIVE DISORDER, SINGLE EPISOD 03/12/2018 TWILA LAWLER MD Ot F41 .9 ANXIETY DISORDER, UNSPECIFIED 03/12/2018 TWILA LAWLER MD Ot F60 .9 PERSONALITY DISORDER, UNSPECIFIED 03/12/2018 TWILA LAWLER MD, Ot F90 .9 ATTENTION-DEFICIT HYPERACTIVITY DISORDER 03/12/2018 TWILA LAWLER MD Ot G43.909 MIGRAINE, UNSP, NOT INTRACTABLE, WITHOUT 03/12/2018 TWILA LAWLER MD Ot K21 .9 GASTRO-ESOPHAGEAL REFLUX DISEASE WITHOUT 03/12/2018 TWILA LAWLER MD Ot N39 .0 URINARY TRACT INFECTION, SITE NOT SPECIF 03/12/2018 TWILA LAWLER MD Ot R05 COUGH 03/12/2018 TWILA LAWLER MD, Ot Z68.31 BODY MASS INDEX (BMI) 31.0-31.9, ADULT 03/12/2018 TWILA LAWLER MD Ot Z79 .4 HOME HEALTH ADMINISTRATOR (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 INSULIN 03/12/2018 TWILA LAWLER MD Ot Z88 .0 ALLERGY STATUS TO PENICILLIN 03/12/2018 TWILA LAWLER MD Ot Z88 .1 ALLERGY STATUS TO OTHER ANTIBIOTIC AGENT 03/12/2018 TWILA LAWLER MD Ot Z90.49 ACQUIRED ABSENCE OF OTHER SPECIFIED PART 03/12/2018 TWILA LAWLER MD Ot Z91 .5 PERSONAL HISTORY OF SELF-HARM 03/14/2018 TWILA LAWLER MD Ot E03 .9 HYPOTHYROIDISM, UNSPECIFIED 03/14/2018 TWILA LAWLER MD Ot E11 .9 TYPE 2 DIABETES MELLITUS WITHOUT COMPLIC 03/14/2018 TWILA LAWLER MD Ot E66 .9 OBESITY, UNSPECIFIED 03/14/2018 TWILA LAWLER MD Ot F17.210 NICOTINE DEPENDENCE, CIGARETTES, UNCOMPL 03/14/2018 TWILA LAWLER MD Ot F20 .9 SCHIZOPHRENIA, UNSPECIFIED 03/14/2018 TWILA LAWLER MD Ot F32 .9 MAJOR DEPRESSIVE DISORDER, SINGLE EPISOD 03/14/2018 TWILA LAWLER MD Ot F41 .9 ANXIETY DISORDER, UNSPECIFIED 03/14/2018 TWILA LAWLER MD Ot F60 .9 PERSONALITY DISORDER, UNSPECIFIED 03/14/2018 TWILA LAWLER MD Ot F90 .9 ATTENTION-DEFICIT HYPERACTIVITY DISORDER 03/14/2018 TWILA LAWLER MD, Ot G43.909 MIGRAINE, UNSP, NOT INTRACTABLE, WITHOUT 03/14/2018 TWILA LAWLER MD, Ot K21 .9 GASTRO-ESOPHAGEAL REFLUX DISEASE WITHOUT 03/14/2018 TWILA LAWLER MD, Ot N39 .0 URINARY TRACT INFECTION, SITE NOT SPECIF 03/14/2018 TWILA LAWLER MD, Ot R05 COUGH 03/14/2018 TWILA LAWLER MD, Ot Z68.31 BODY MASS INDEX (BMI) 31.0-31.9, ADULT 03/14/2018 TWILA LAWLER MD, Ot Z79 .4 PRISON (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 INSULIN 03/14/2018 TWILA LAWLER MD, Ot Z88 .0 ALLERGY STATUS TO PENICILLIN 03/14/2018 TWILA LAWLER MD, Ot Z88 .1 ALLERGY STATUS TO OTHER ANTIBIOTIC AGENT 03/14/2018 TWILA LAWLER MD, Ot Z90.49 ACQUIRED ABSENCE OF OTHER SPECIFIED PART 03/14/2018 TWILA LAWLER MD, Ot Z91 .5 PERSONAL HISTORY OF SELF-HARM 05/03/2018 DARRICK VERDUZCO MD, Ot E03.9 HYPOTHYROIDISM, UNSPECIFIED 05/03/2018 DARRICK VERDUZCO MD, Ot E11.9 TYPE 2 DIABETES MELLITUS WITHOUT COMPLIC 05/03/2018 DARRICK VERDUZCO MD, Ot F17.210 NICOTINE DEPENDENCE, CIGARETTES, UNCOMPL 05/03/2018 DARRICK VERDUZCO MD, Ot F31.9 BIPOLAR DISORDER, UNSPECIFIED 05/03/2018 DARRICK VERDUZCO MD, Ot F41.9 ANXIETY DISORDER, UNSPECIFIED 05/03/2018 DARRICK VERDUZOC MD, Ot G43.909 MIGRAINE, UNSP, NOT INTRACTABLE, WITHOUT 05/03/2018 DARRICK VERDUZCO MD, Ot K21.9 GASTRO-ESOPHAGEAL REFLUX DISEASE WITHOUT 05/03/2018 DARRICK VERDUZCO MD, Ot N39.0 URINARY TRACT INFECTION, SITE NOT SPECIF 05/03/2018 DARRICK VERDUZCO MD, Ot R45.851 SUICIDAL IDEATIONS 05/03/2018 DARRICK VERDUZCO MD, Ot S40.811A ABRASION OF RIGHT UPPER ARM, INITIAL ENC 05/03/2018 DARRICK VERDUZCO MD, Ot X78.1XXA INTENTIONAL SELF-HARM BY KNIFE, INITIAL 05/03/2018 DARRICK VERDUZCO MD Ot Z79.4 HOME HEALTH ADMINISTRATOR (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 INSULIN 05/03/2018 DARRICK VERDUZCO MD, Ot Z88.0 ALLERGY STATUS TO PENICILLIN 05/03/2018 DARRICK VERDUZCO MD, Ot Z88.1 ALLERGY STATUS TO OTHER ANTIBIOTIC AGENT 05/03/2018 DARRICK VERDUZCO MD Ot Z90.49 ACQUIRED ABSENCE OF OTHER SPECIFIED PART 05/03/2018 OLGA LUCERO MD R Ot 787. 02 NAUSEA ALONE 05/03/2018 OLGA LUCERO MD Ot 789. 03 ABDOMINAL PAIN, RIGHT LOWER QUADRANT 05/03/2018 OLGA LUCERO MD Ot 789. 04 ABDOMINAL PAIN, LEFT LOWER QUADRANT 05/03/2018 OLGA LUCERO MD Ot 571. 8 CHRONIC LIVER DIS NEC 05/03/2018 OLGA LUECRO MD Ot 592. 0 CALCULUS OF KIDNEY 05/03/2018 OLGA LUCERO MD Ot 719. 7 DIFFICULTY IN WALKING 05/03/2018 AFUA FINLEY LEARNING AND DEVELOPMENT OFFICER Ot V58.69 OT MED,LT,CURRENT USE 05/03/2018 AFUA FINLEY LEARNING AND DEVELOPMENT OFFICER Ot V58.83 ENCOUNTER FOR THERAPEUTIC DRUG MONITORIN 05/03/2018 ADAIR LUCERO LEARNING AND DEVELOPMENT OFFICER Ot 250.00 DIAB [place] WO COMPL, TYPE II OR UNSPEC TY 05/03/2018 ADAIR LUCERO LEARNING AND DEVELOPMENT OFFICER Ot 244.9 HYPOTHYROIDISM NOS 05/03/2018 ADAIR LUCERO LEARNING AND DEVELOPMENT OFFICER Ot 250.00 DIAB [place] WO COMPL, TYPE II OR UNSPEC TY 05/03/2018 OLGA LUCERO MD R Ot 571. 8 CHRONIC LIVER DIS NEC 05/03/2018 OLGA LUCERO MD Ot 789. 01 ABDOMINAL PAIN, RIGHT UPPER QUADRANT 05/03/2018 OLGA LUCERO MD Ot 789. 01 ABDOMINAL PAIN, RIGHT UPPER QUADRANT 05/03/2018 OLGA LUCERO MD Ot 793. 3 NOSP (ABN) FINDINGS ON RADIOLOGICAL OT 05/03/2018 ESAU BERRY DO Ot 575. 11 CHRONIC CHOLECYSTITIS 05/03/2018 ESAU BERRY DO Ot V72. 63 PRE-PROCEDURAL LABORATORY EXAMINATION 05/03/2018 ESAU BERRY DO Ot V74. 8 SCREEN-BACTERIAL DIS NEC 05/03/2018 ADAIR LUCERO Ot 250.01 DIAB [place] WO COMPL, TYPE I [JUVENILE TYP 05/03/2018 ADAIR LUCERO Ot 250.00 DIAB [place] WO COMPL, TYPE II OR UNSPEC TY 05/03/2018 ADAIR LUCERO Ot V58.67 LONG-TERM (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 INSULIN 05/03/2018 OLGA LUCERO MD R Ot 786. 2 COUGH 05/03/2018 ADAIR LUCERO Ot E11.9 TYPE 2 DIABETES MELLITUS WITHOUT COMPLIC 05/03/2018 TREVIN DALE MD Ot R19.4 CHANGE IN BOWEL HABIT 05/03/2018 TREVIN DALE MD Ot Z01.81 8 ENCOUNTER FOR OTHER PREPROCEDURAL EXAMIN 05/03/2018 OLGA LUCERO MD R Ot 787. 91 DIARRHEA 05/03/2018 OLGA LUCERO MD R Ot R19. 7 DIARRHEA, UNSPECIFIED 05/03/2018 OLGA LUCERO MD R Ot E03. 9 HYPOTHYROIDISM, UNSPECIFIED 05/03/2018 OLGA LUCERO MD R Ot E03. 9 HYPOTHYROIDISM, UNSPECIFIED 05/03/2018 OLGA LUCERO MD R Ot M25.551 PAIN IN RIGHT HIP 05/03/2018 OLGA LUCERO MD R Ot M47.894 OTHER SPONDYLOSIS, THORACIC REGION 05/03/2018 OLGA LUCERO MD R Ot M51. 27 OTHER INTERVERTEBRAL DISC DISPLACEMENT, 05/03/2018 OLGA LUCERO MD R Ot M54. 16 RADICULOPATHY, LUMBAR REGION 05/03/2018 OLGA LUCERO MD R Ot N83. 20 UNSPECIFIED OVARIAN CYSTS 05/03/2018 OLGA LUCERO MD R Ot N88. 8 OTHER SPECIFIED NONINFLAMMATORY DISORDER 05/03/2018 ADAIR LUCERO Ot E11.9 TYPE 2 DIABETES MELLITUS WITHOUT COMPLIC 05/03/2018 ADAIR LUCERO Ot Z79.4 HOME HEALTH ADMINISTRATOR (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 INSULIN 05/03/2018 OLGA LUCERO MD R Ot E22. 9 HYPERFUNCTION OF PITUITARY GLAND, UNSPEC 05/03/2018 TINY ALMENDAREZ DOWEL MACHINE OPERATOR Ot E03.9 HYPOTHYROIDISM, UNSPECIFIED 05/03/2018 TINY ALMENDAREZ DOWEL MACHINE OPERATOR Ot E10.9 TYPE 1 DIABETES MELLITUS WITHOUT COMPLIC 05/03/2018 TINY ALMENDAREZ DOWEL MACHINE OPERATOR Ot R 42 DIZZINESS AND GIDDINESS 05/05/2018 DARRICK VERDUZCO MD, Ot E03.9 HYPOTHYROIDISM, UNSPECIFIED 05/05/2018 DARRICK VERDUZCO MD, Ot E11.9 TYPE 2 DIABETES MELLITUS WITHOUT COMPLIC 05/05/2018 DARRICK VERDUZCO MD Ot F17.210 NICOTINE DEPENDENCE, CIGARETTES, UNCOMPL 05/05/2018 DARRICK VERDUZCO MD, Ot F31.9 BIPOLAR DISORDER, UNSPECIFIED 05/05/2018 DARRICK VERDUZCO MD, Ot F41.9 ANXIETY DISORDER, UNSPECIFIED 05/05/2018 DARRICK VERDUZCO MD, Ot G43.909 MIGRAINE, UNSP, NOT INTRACTABLE, WITHOUT 05/05/2018 DARRICK VERDUZCO MD, Ot K21.9 GASTRO-ESOPHAGEAL REFLUX DISEASE WITHOUT 05/05/2018 DARRICK VERDUZCO MD Ot N39.0 URINARY TRACT INFECTION, SITE NOT SPECIF 05/05/2018 DARRICK VERDUZCO MD Ot R45.851 SUICIDAL IDEATIONS 05/05/2018 DARRICK VERDUZCO MD, Ot S40.811A ABRASION OF RIGHT UPPER ARM, INITIAL ENC 05/05/2018 DARRICK VERDUZCO MD Ot X78.1XXA INTENTIONAL SELF-HARM BY KNIFE, INITIAL 05/05/2018 DARRICK VERDUZCO MD Ot Z79.4 PRISON (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 INSULIN 05/05/2018 DARRICK VERDUZCO MD Ot Z88.0 ALLERGY STATUS TO PENICILLIN 05/05/2018 DARRICK VERDUZCO MD Ot Z88.1 ALLERGY STATUS TO OTHER ANTIBIOTIC AGENT 05/05/2018 DARRICK VERDUZCO MD Ot Z90.49 ACQUIRED ABSENCE OF OTHER SPECIFIED PART 08/15/2018 TANYA GONZALEZ APRN Ot E03 .9 HYPOTHYROIDISM, UNSPECIFIED 08/15/2018 TANYA GONZALEZ APRN Ot E11 .9 TYPE 2 DIABETES MELLITUS WITHOUT COMPLIC 08/15/2018 TANYA GONZALEZ APRN Ot F31 .9 BIPOLAR DISORDER, UNSPECIFIED 08/15/2018 TANYA GONZALEZ APRN Ot G43.909 MIGRAINE, UNSP, NOT INTRACTABLE, WITHOUT 08/15/2018 TANYA GONZALEZ APRN Ot K21 .9 GASTRO-ESOPHAGEAL REFLUX DISEASE WITHOUT 08/15/2018 TANYA GONZALEZ APRN Ot L29 .9 PRURITUS, UNSPECIFIED 08/15/2018 TANYA GONZALEZ APRN Ot Z77.22 CNTCT W AND EXPSR TO ENVIRON TOBACCO SMO 08/15/2018 TANYA GONZALEZ APRN Ot Z79 .4 HOME HEALTH ADMINISTRATOR (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 INSULIN 08/15/2018 TANYA GONZALEZ APRN Ot Z87.440 PERSONAL HISTORY OF URINARY (TRACT) INFE 08/15/2018 TANYA GONZALEZ APRN Ot Z88 .0 ALLERGY STATUS TO PENICILLIN 08/15/2018 TANYA GONZALEZ APRN Ot Z88 .1 ALLERGY STATUS TO OTHER ANTIBIOTIC AGENT 08/15/2018 TANYA GONZALEZ APRN Ot Z90.49 ACQUIRED ABSENCE OF OTHER SPECIFIED PART 08/17/2018 TANYA GONZALEZ APRN Ot E03 .9 HYPOTHYROIDISM, UNSPECIFIED 08/17/2018 TANYA GONZALEZ APRN Ot E11 .9 TYPE 2 DIABETES MELLITUS WITHOUT COMPLIC 08/17/2018 TANYA GONZALEZ APRN Ot F31 .9 BIPOLAR DISORDER, UNSPECIFIED 08/17/2018 TANYA GONZALEZ APRN Ot G43.909 MIGRAINE, UNSP, NOT INTRACTABLE, WITHOUT 08/17/2018 TANYA GONZALEZ APRN Ot K21 .9 GASTRO-ESOPHAGEAL REFLUX DISEASE WITHOUT 08/17/2018 TANYA GONZALEZ APRN Ot L29 .9 PRURITUS, UNSPECIFIED 08/17/2018 TANYA GONZALEZ APRN Ot Z77.22 CNTCT W AND EXPSR TO ENVIRON TOBACCO SMO 08/17/2018 TANYA GONZALEZ APRN Ot Z79 .4 PRISON (CURRENT) USE OF INSULIN 08/17/2018 TANYA GONZALEZ APRN Ot Z87.440 PERSONAL HISTORY OF URINARY (TRACT) INFE 08/17/2018 TANYA GONZALEZ APRN Ot Z88 .0 ALLERGY STATUS TO PENICILLIN 08/17/2018 TANYA GONZALEZ APRN Ot Z88 .1 ALLERGY STATUS TO OTHER ANTIBIOTIC AGENT 08/17/2018 TANYA GONZALEZ APRN Ot Z90.49 ACQUIRED ABSENCE OF OTHER SPECIFIED PART 11/13/2018 JOHN LEE MD, Ot E03.9 HYPOTHYROIDISM, UNSPECIFIED 11/13/2018 JOHN LEE MD Ot E11.9 TYPE 2 DIABETES MELLITUS WITHOUT COMPLIC 11/13/2018 JOHN LEE MD, Ot E66.9 OBESITY, UNSPECIFIED 11/13/2018 JOHN LEE MD Ot F17.210 NICOTINE DEPENDENCE, CIGARETTES, UNCOMPL 11/13/2018 JOHN LEE MD, Ot F31.9 BIPOLAR DISORDER, UNSPECIFIED 11/13/2018 JOHN LEE MD, Ot G43.909 MIGRAINE, UNSP, NOT INTRACTABLE, WITHOUT 11/13/2018 JOHN LEE MD, Ot K21.9 GASTRO-ESOPHAGEAL REFLUX DISEASE WITHOUT 11/13/2018 JOHN LEE MD, Ot Z68.32 BODY MASS INDEX (BMI) 32.0-32.9, ADULT 11/13/2018 JOHN LEE MD, Ot Z79.4 HOME HEALTH ADMINISTRATOR (CURRENT) USE OF INSULIN 11/13/2018 JOHN LEE MD, Ot Z79.51 HOME HEALTH ADMINISTRATOR (CURRENT) USE OF INHALED STERO 11/13/2018 JOHN LEE MD, Ot Z82.49 FAMILY HX OF ISCHEM HEART DIS AND OTH DI 11/13/2018 JOHN LEE MD, Ot Z87.440 PERSONAL HISTORY OF URINARY (TRACT) INFE 11/13/2018 JOHN LEE MD, Ot Z88.0 ALLERGY STATUS TO PENICILLIN 11/13/2018 JOHN LEE MD, Ot Z88.8 ALLERGY STATUS TO OT DRUG/MEDS/BIOL SUB 11/13/2018 JOHN LEE MD Ot Z90.49 ACQUIRED ABSENCE OF OTHER SPECIFIED PART 11/13/2018 JOHN LEE MD Ot Z91.5 PERSONAL HISTORY OF SELF-HARM 11/13/2018 JOHN LEE MD Ot Z98.890 OTHER SPECIFIED POSTPROCEDURAL STATES 11/13/2018 TINY ALMENDAREZ APRN Ot R25.2 CRAMP AND SPASM 11/15/2018 BRUEGGEMANN MD, JOHN T Ot E03.9 HYPOTHYROIDISM, UNSPECIFIED 11/15/2018 JOHN LEE MD Ot E11.9 TYPE 2 DIABETES MELLITUS WITHOUT COMPLIC 11/15/2018 JOHN LEE MD, Ot E66.9 OBESITY, UNSPECIFIED 11/15/2018 JOHN LEE MD Ot F17.210 NICOTINE DEPENDENCE, CIGARETTES, UNCOMPL 11/15/2018 JOHN LEE MD, Ot F31.9 BIPOLAR DISORDER, UNSPECIFIED 11/15/2018 JOHN LEE MD Ot G43.909 MIGRAINE, UNSP, NOT INTRACTABLE, WITHOUT 11/15/2018 JOHN LEE MD, Ot K21.9 GASTRO-ESOPHAGEAL REFLUX DISEASE WITHOUT 11/15/2018 JOHN LEE MD, Ot Z68.32 BODY MASS INDEX (BMI) 32.0-32.9, ADULT 11/15/2018 JOHN LEE MD, Ot Z79.4 HOME HEALTH ADMINISTRATOR (CURRENT) USE OF INSULIN 11/15/2018 JOHN LEE MD Ot Z79.51 PRISON (CURRENT) USE OF INHALED STERO 11/15/2018 JOHN LEE MD, Ot Z82.49 FAMILY HX OF ISCHEM HEART DIS AND OTH DI 11/15/2018 JOHN LEE MD, Ot Z87.440 PERSONAL HISTORY OF URINARY (TRACT) INFE 11/15/2018 JOHN LEE MD, Ot Z88.0 ALLERGY STATUS TO PENICILLIN 11/15/2018 JOHN LEE MD, Ot Z88.8 ALLERGY STATUS TO OTH DRUG/MEDS/BIOL SUB 11/15/2018 JOHN LEE MD, Ot Z90.49 ACQUIRED ABSENCE OF OTHER SPECIFIED PART 11/15/2018 JOHN LEE MD Ot Z91.5 PERSONAL HISTORY OF SELF-HARM 11/15/2018 JOHN LEE MD Ot Z98.890 OTHER SPECIFIED POSTPROCEDURAL STATES 12/06/2018 TANYA GONZALEZ APRN Ot E03 .9 HYPOTHYROIDISM, UNSPECIFIED 12/06/2018 TANYA GONZALEZ APRN Ot E11 .9 TYPE 2 DIABETES MELLITUS WITHOUT COMPLIC 12/06/2018 TANYA GONZALEZ APRN Ot F31 .9 BIPOLAR DISORDER, UNSPECIFIED 12/06/2018 TANYA GONZALEZ APRN Ot G43.909 MIGRAINE, UNSP, NOT INTRACTABLE, WITHOUT 12/06/2018 TANYA GONZALEZ APRN Ot K21 .9 GASTRO-ESOPHAGEAL REFLUX DISEASE WITHOUT 12/06/2018 TANYA GONZALEZ APRN Ot L29 .9 PRURITUS, UNSPECIFIED 12/06/2018 TANYA GONZALEZ APRN Ot Z77.22 CNTCT W AND EXPSR TO ENVIRON TOBACCO SMO 12/06/2018 TANYA GONZALEZ APRN Ot Z79 .4 HOME HEALTH ADMINISTRATOR (CURRENT) USE OF INSULIN 12/06/2018 TANYA GONZALEZ APRN Ot Z87.440 PERSONAL HISTORY OF URINARY (TRACT) INFE 12/06/2018 TANYA GONZALEZ APRN Ot Z88 .0 ALLERGY STATUS TO PENICILLIN 12/06/2018 TANYA GONZALEZ APRN Ot Z88 .1 ALLERGY STATUS TO OTHER ANTIBIOTIC AGENT 12/06/2018 TANYA GONZALEZ APRN Ot Z90.49 ACQUIRED ABSENCE OF OTHER SPECIFIED PART 03/08/2019 IVORY DICKSON MD Ot E03. 9 HYPOTHYROIDISM, UNSPECIFIED 03/08/2019 IVORY DICKSON MD Ot E11. 9 TYPE 2 DIABETES MELLITUS WITHOUT COMPLIC 03/08/2019 IVORY DICKSON MD Ot E66. 9 OBESITY, UNSPECIFIED 03/08/2019 IVORY DICKSON MD Ot F17.210 NICOTINE DEPENDENCE, CIGARETTES, UNCOMPL 03/08/2019 IVORY DICKSON MD Ot F31. 9 BIPOLAR DISORDER, UNSPECIFIED 03/08/2019 IVORY DICKSON MD Ot G43.909 MIGRAINE, UNSP, NOT INTRACTABLE, WITHOUT 03/08/2019 IVORY DICKSON MD Ot K21. 9 GASTRO-ESOPHAGEAL REFLUX DISEASE WITHOUT 03/08/2019 IVORY DICKSON MD Ot M79.672 PAIN IN LEFT FOOT 03/08/2019 IVORY DICKSON MD Ot S90.32XA CONTUSION OF LEFT FOOT, INITIAL ENCOUNTE 03/08/2019 IVORY DICKSON MD Ot V18.3XXA PRSN BRD/ALIT PEDL CYC INJURED IN NONCLS 03/08/2019 IVORY DICKSON MD Ot Z68. 31 BODY MASS INDEX (BMI) 31.0-31.9, ADULT 03/08/2019 IVORY DICKSON MD Ot Z79. 4 HOME HEALTH ADMINISTRATOR (CURRENT) USE OF INSULIN 03/08/2019 IVORY DICKSON MD Ot Z82. 49 FAMILY HX OF ISCHEM HEART DIS AND OTH DI 03/08/2019 IVORY DICKSON MD Ot Z87.440 PERSONAL HISTORY OF URINARY (TRACT) INFE 03/08/2019 IVORY DICKSON MD Ot Z88. 0 ALLERGY STATUS TO PENICILLIN 03/08/2019 IVORY DICKSON MD, Ot Z88. 1 ALLERGY STATUS TO OTHER ANTIBIOTIC AGENT 03/08/2019 IVORY DICKSON MD, Ot Z88. 8 ALLERGY STATUS TO OT DRUG/MEDS/BIOL SUB 03/08/2019 IVORY DICKSON MD Ot Z90. 49 ACQUIRED ABSENCE OF OTHER SPECIFIED PART 03/08/2019 IVORY DICKSON MD Ot Z91. 5 PERSONAL HISTORY OF SELF-HARM 03/12/2019 IVORY DICKSON MD Ot E03. 9 HYPOTHYROIDISM, UNSPECIFIED 03/12/2019 IVORY DICKSON MD Ot E11. 9 TYPE 2 DIABETES MELLITUS WITHOUT COMPLIC 03/12/2019 IVORY DICKSON MD Ot E66. 9 OBESITY, UNSPECIFIED 03/12/2019 IVORY DICKSON MD Ot F17.210 NICOTINE DEPENDENCE, CIGARETTES, UNCOMPL 03/12/2019 IVORY DICKSON MD Ot F31. 9 BIPOLAR DISORDER, UNSPECIFIED 03/12/2019 IVORY DICKSON MD Ot G43.909 MIGRAINE, UNSP, NOT INTRACTABLE, WITHOUT 03/12/2019 IVORY DICKSON MD Ot K21. 9 GASTRO-ESOPHAGEAL REFLUX DISEASE WITHOUT 03/12/2019 IVORY DICKSON MD Ot M79.672 PAIN IN LEFT FOOT 03/12/2019 IVORY DICKSON MD Ot S90.32XA CONTUSION OF LEFT FOOT, INITIAL ENCOUNTE 03/12/2019 IVORY DICKSON MD Ot V18.3XXA PRSN BRD/ALIT PEDL CYC INJURED IN NONCLS 03/12/2019 IVORY DICKSON MD Ot Z68. 31 BODY MASS INDEX (BMI) 31.0-31.9, ADULT 03/12/2019 IVORY DICKSON MD Ot Z79. 4 PRISON (CURRENT) USE OF INSULIN 03/12/2019 IVORY DICKSON MD, Ot Z82. 49 FAMILY HX OF ISCHEM HEART DIS AND OTH DI 03/12/2019 IVORY DICKSON MD Ot Z87.440 PERSONAL HISTORY OF URINARY (TRACT) INFE 03/12/2019 IVORY DICKSON MD Ot Z88. 0 ALLERGY STATUS TO PENICILLIN 03/12/2019 IVORY DICKSON MD Ot Z88. 1 ALLERGY STATUS TO OTHER ANTIBIOTIC AGENT 03/12/2019 IVORY DICKSON MD Ot Z88. 8 ALLERGY STATUS TO OT DRUG/MEDS/BIOL SUB 03/12/2019 IVORY DICKSON MD Ot Z90. 49 ACQUIRED ABSENCE OF OTHER SPECIFIED PART 03/12/2019 IVORY DICKSON MD, Ot Z91. 5 PERSONAL HISTORY OF SELF-HARM 03/14/2019 IVORY DICKSON MD Ot E03. 9 HYPOTHYROIDISM, UNSPECIFIED 03/14/2019 IVORY DICKSON MD Ot E11. 9 TYPE 2 DIABETES MELLITUS WITHOUT COMPLIC 03/14/2019 IVORY DICKSON MD Ot E66. 9 OBESITY, UNSPECIFIED 03/14/2019 IVORY DICKSON MD Ot F17.210 NICOTINE DEPENDENCE, CIGARETTES, UNCOMPL 03/14/2019 IVORY DICKSON MD Ot F31. 9 BIPOLAR DISORDER, UNSPECIFIED 03/14/2019 IVORY DICKSON MD Ot G43.909 MIGRAINE, UNSP, NOT INTRACTABLE, WITHOUT 03/14/2019 IVORY DICKSON MD Ot K21. 9 GASTRO-ESOPHAGEAL REFLUX DISEASE WITHOUT 03/14/2019 IVORY DICKSON MD Ot M79.672 PAIN IN LEFT FOOT 03/14/2019 IVORY DICKSON MD Ot S90.32XA CONTUSION OF LEFT FOOT, INITIAL ENCOUNTE 03/14/2019 IVORY DICKSON MD Ot V18.3XXA PRSN BRD/ALIT PEDL CYC INJURED IN NONCLS 03/14/2019 IVORY DICKSON MD Ot Z68. 31 BODY MASS INDEX (BMI) 31.0-31.9, ADULT 03/14/2019 IVORY DICKSON MD Ot Z79. 4 PRISON (CURRENT) USE OF INSULIN 03/14/2019 IVORY DICKSON MD, Ot Z82. 49 FAMILY HX OF ISCHEM HEART DIS AND OTH DI 03/14/2019 IVORY DICKSON MD Ot Z87.440 PERSONAL HISTORY OF URINARY (TRACT) INFE 03/14/2019 IVORY DICKSON MD Ot Z88. 0 ALLERGY STATUS TO PENICILLIN 03/14/2019 IVORY DICKSON MD Ot Z88. 1 ALLERGY STATUS TO OTHER ANTIBIOTIC AGENT 03/14/2019 IVORY DICKSON MD Ot Z88. 8 ALLERGY STATUS TO OT DRUG/MEDS/BIOL SUB 03/14/2019 IVORY DICKSON MD Ot Z90. 49 ACQUIRED ABSENCE OF OTHER SPECIFIED PART 03/14/2019 IVORY DICKSON MD Ot Z91. 5 PERSONAL HISTORY OF SELF-HARM 04/06/2019 FINLEY, MARY Arleth LEARNING AND DEVELOPMENT OFFICER Ot V58.69 OT MED,LT,CURRENT USE 04/06/2019 TUSHAR AFUA Reinoso LEARNING AND DEVELOPMENT OFFICER Ot V58.83 ENCOUNTER FOR THERAPEUTIC DRUG MONITORIN 04/06/2019 ADAIR LUCERO LEARNING AND DEVELOPMENT OFFICER Ot 250.00 DIAB [place] WO COMPL, TYPE II OR UNSPEC TY 04/06/2019 ADAIR LUCERO LEARNING AND DEVELOPMENT OFFICER Ot 244.9 HYPOTHYROIDISM NOS 04/06/2019 ADAIR LUCERO LEARNING AND DEVELOPMENT OFFICER Ot 250.00 DIAB [place] WO COMPL, TYPE II OR UNSPEC TY 04/06/2019 JAZMINE GUERRA, OLGA R Ot 571. 8 CHRONIC LIVER DIS NEC 04/06/2019 JAZMINE GUERRA, OLGA R Ot 789. 01 ABDOMINAL PAIN, RIGHT UPPER QUADRANT 04/06/2019 JAZMINE GUERRA, OLGA R Ot 789. 01 ABDOMINAL PAIN, RIGHT UPPER QUADRANT 04/06/2019 JAZMINE GUERRA, OLGA R Ot 793. 3 NOSP (ABN) FINDINGS ON RADIOLOGICAL OT 04/06/2019 ESAU BERRY DO Ot 575. 11 CHRONIC CHOLECYSTITIS 04/06/2019 ESAU BERRY DO Ot V72. 63 PRE-PROCEDURAL LABORATORY EXAMINATION 04/06/2019 ESAU BERRY DO Ot V74. 8 SCREEN-BACTERIAL DIS NEC 04/06/2019 ADAIR LUCERO Ot 250.01 DIAB [place] WO COMPL, TYPE I [JUVENILE TYP 04/06/2019 ADAIR LUCERO LEARNING AND DEVELOPMENT OFFICER Ot 250.00 DIAB [place] WO COMPL, TYPE II OR UNSPEC TY 04/06/2019 ADAIR LUCERO LEARNING AND DEVELOPMENT OFFICER Ot V58.67 LONG-TERM (CURRENT) USE OF INSULIN 04/06/2019 OLGA LUCERO MD R Ot 786. 2 COUGH 04/06/2019 ADAIR LUCERO LEARNING AND DEVELOPMENT OFFICER Ot E11.9 TYPE 2 DIABETES MELLITUS WITHOUT COMPLIC 04/06/2019 SUYAPA GUERRA, TREVIN Ot R19.4 CHANGE IN BOWEL HABIT 04/06/2019 SUYAPA GUERRA, TREVIN Ot Z01.81 8 ENCOUNTER FOR OTHER PREPROCEDURAL EXAMIN 04/06/2019 JAZMINE GUERRA, OLGA R Ot 787. 91 DIARRHEA 04/06/2019 JAZMINE GUERRA, OLGA R Ot R19. 7 DIARRHEA, UNSPECIFIED 04/06/2019 OLGA LUCERO MD R Ot E03. 9 HYPOTHYROIDISM, UNSPECIFIED 04/06/2019 OLGA LUCERO MD R Ot E03. 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 16 RADICULOPATHY, LUMBAR REGION 04/06/2019 JAZMINE GUERRA, OLGA R Ot N83. 20 UNSPECIFIED OVARIAN CYSTS 04/06/2019 JAZMINE GUERRA, OLGA R Ot N88. 8 OTHER SPECIFIED NONINFLAMMATORY DISORDER 04/06/2019 ADAIR LUCERO LEARNING AND DEVELOPMENT OFFICER Ot E11.9 TYPE 2 DIABETES MELLITUS WITHOUT COMPLIC 04/06/2019 ADAIR LUCERO LEARNING AND DEVELOPMENT OFFICER Ot Z79.4 PRISON (CURRENT) USE OF INSULIN 04/06/2019 OLGA LUCERO MD R Ot E22. 9 HYPERFUNCTION OF PITUITARY GLAND, UNSPEC 04/06/2019 TINY ALMENDAREZ DOWEL MACHINE OPERATOR Ot E03.9 HYPOTHYROIDISM, UNSPECIFIED 04/06/2019 TINY ALMENDAREZ DOWEL MACHINE OPERATOR Ot E10.9 TYPE 1 DIABETES MELLITUS WITHOUT COMPLIC 04/06/2019 TINY ALMENDAREZ DOWEL MACHINE OPERATOR Ot R 42 DIZZINESS AND GIDDINESS 04/06/2019 TINY ALMENDAREZ DOWEL MACHINE OPERATOR Ot R25.2 CRAMP AND SPASM 07/09/2019 NEELA ISSA DOWEL MACHINE OPERATOR Ot J30.9 ALLERGIC RHINITIS, UNSPECIFIED 07/09/2019 NEELA ISSA DOWEL MACHINE OPERATOR Ot Z72.0 TOBACCO USE 08/10/2019 NEELA ISSA DOWEL MACHINE OPERATOR Ot J30.9 ALLERGIC RHINITIS, UNSPECIFIED 08/10/2019 NEELA ISSA DOWEL MACHINE OPERATOR Ot Z72.0 TOBACCO USE 12/10/2019 ADAIR LUCEROP Ot 250.00 DIAB [place] WO COMPL, TYPE II OR UNSPEC TY 12/10/2019 ADAIR LUCERO Ot V58.67 LONG-TERM (CURRENT) USE OF INSULIN 12/10/2019 JAZMINE GUERRA, OLGA R Ot 786. 2 COUGH 12/10/2019 ADAIR LUCERO Ot E11.9 TYPE 2 DIABETES MELLITUS WITHOUT COMPLIC 12/10/2019 SUYAPA GUERRA, TREVIN Ot R19.4 CHANGE IN BOWEL HABIT 12/10/2019 SUYAPA GUERRA, TAKAAKI Ot Z01.81 8 ENCOUNTER FOR OTHER PREPROCEDURAL EXAMIN 12/10/2019 JAZMINE GUERRA, OLGA R Ot 787. 91 DIARRHEA 12/10/2019 JAZMINE GUERRA, OLGA R Ot R19. 7 DIARRHEA, UNSPECIFIED 12/10/2019 JAZMINE GUERRA, OLGA R Ot E03. 9 HYPOTHYROIDISM, UNSPECIFIED 12/10/2019 JAZMINE GUERRA, OLGA R Ot E03. 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 16 RADICULOPATHY, LUMBAR REGION 12/10/2019 JAZMINE GUERRA, OLGA R Ot N83. 20 UNSPECIFIED OVARIAN CYSTS 12/10/2019 JAZMINE GUERRA, OLGA R Ot N88. 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 9 HYPERFUNCTION OF PITUITARY GLAND, UNSPEC 12/10/2019 TINY ALMENDAREZ DOWEL MACHINE OPERATOR Ot E03.9 HYPOTHYROIDISM, UNSPECIFIED 12/10/2019 TINY ALMENDAREZ DOWEL MACHINE OPERATOR Ot E10.9 TYPE 1 DIABETES MELLITUS WITHOUT COMPLIC 12/10/2019 TINY ALMENDAREZ DOWEL MACHINE OPERATOR Ot R 42 DIZZINESS AND GIDDINESS 12/10/2019 TINY ALMENDAREZ DOWEL MACHINE OPERATOR Ot R25.2 CRAMP AND SPASM 12/10/2019 NEELA ISSA APRN Ot J30.9 ALLERGIC RHINITIS, UNSPECIFIED 12/10/2019 NEELA ISSA APRN Ot Z72.0 TOBACCO USE 12/10/2019 NEELA ISSA APRN Ot J30.9 ALLERGIC RHINITIS, UNSPECIFIED 12/10/2019 NEELA ISSA APRN Ot Z72.0 TOBACCO USE 12/10/2019 BRYAN FERRARA Ot E11.65 TYPE 2 DIABETES MELLITUS WITH HYPERGLYCE 12/10/2019 BRYAN FERRARA Ot Z79 .4 HOME HEALTH ADMINISTRATOR (CURRENT) USE OF INSULIN Procedures Code Description Performed By [place] [facility] [place] [address] THER APUTIC INJ SQ/IM 12/13/2012 92746 THER APUTIC INJ SQ/IM 01/16/2013 33739 THER APUTIC INJ SQ/IM 01/16/2013 42309 PSYC H PHARM MGMT 01/26/2013 09533 THER APUTIC INJ SQ/IM 02/09/2013 01909 THER APUTIC INJ SQ/IM 03/12/2013 42383 THER APUTIC INJ SQ/IM 03/12/2013 79260 THER APUTIC INJ SQ/IM 04/10/2013 J1631 Hald ol Decanoate 100 mg/mL Solution 04/11/2013 47052 THER APUTIC INJ SQ/IM 06/12/2013 32718 THER APUTIC INJ SQ/IM 07/18/2013 70463 CMP 11/27/2013 66945 LIPI D PANEL 11/27/2013 12097 IMIP RAMINE 11/27/2013 23703 CBC 11/27/2013 24508 THER APUTIC INJ SQ/IM 01/10/2014 45.16 ESOP HAGOGASTRODUODENOSCOPY [EGD] W/CLOSE 02/07/2014 56935 THER APUTIC INJ SQ/IM 02/08/2014 03264 THER APUTIC INJ SQ/IM 04/05/2014 68290 THER APUTIC INJ SQ/IM 05/07/2014 06847 THER APUTIC INJ SQ/IM 06/05/2014 18337 THER APUTIC INJ SQ/IM 06/05/2014 15207 IMMU NOTHERAPY, ONE INJECTION 07/01/2014 27939 THER APUTIC INJ SQ/IM 07/09/2014 25548 THER APUTIC INJ SQ/IM 08/07/2014 06719 THER APUTIC INJ SQ/IM 09/06/2014 34810 THER APUTIC INJ SQ/IM 10/10/2014 86762 THER APUTIC INJ SQ/IM 11/07/2014 27308 THER APUTIC INJ SQ/IM 01/15/2015 Results Test Result Range Complete urinalysis with reflex to cultu re - 05/25/16 22:45 Urine color determination RED NRG Urine clarity determination BLOODY NR G Urine pH measurement by test strip 8 5-9 Specific gravity of urine by test strip 1.015 1.016-1.022 Urine protein assay by test strip, semi-quantitative 2+ NEGATIVE Urine glucose detection by automated test strip 3+ NEGATIVE Erythrocytes detection in urine sediment by light micr oscopy 5+ NEGATIVE Urine ketones detection by automated test strip 1+ NEGATIVE Urine nitrite detection by test strip NEGATIVE NEGATIVE Urine total bilirubin detection by test strip NEGA TIVE NEGATIVE Urine urobilinogen measurement by automated test strip (mass/volume) NORMAL NORMAL Urine leukocyte esterase detection by dipstick 2+ NEGATIVE Automated urine sediment erythrocyte cou nt by microscopy (number/high power field) TNTC NRG Automated urine sediment leukocyte count by microscopy (number/high power field) [HPF] NRG Bacteria detection in urine sediment by light microsco py FEW NRG Crystals detection in urine sediment by light microsco py NONE NRG Casts detection in urine sediment by light microscopy NONE NRG Mucus detection in urine sediment by light microscopy NEGATIVE NRG Complete urinalysis with reflex to culture YES NRG Bacterial urine culture - 05/25/16 22:45 Bacterial urine culture [id number] NRG COLONY COUNT <10,000 NRG FTX;REPORTABLE SENSITIVITIES REPORTED AT 0742, 8-9 -16 [facility] Bacterial susceptibility panel - 6 22:45 Gentamicin susceptibility test by minimum inhibitory c oncentration <= NRG Trimethoprim/sulfamethoxazole susceptibi lity test by minimum inhibitoryconcentration <= NRG Ampicillin susceptibility test by minimum inhibitory c oncentration <= NRG Tobramycin susceptibility test by minimum inhibitory c oncentration <= NRG Cefazolin susceptibility test by minimum inhibitory co ncentration <= NRG Ceftriaxone susceptibility test by minimum inhibitory concentration <= NRG Ampicillin/sulbactam susceptibility test by minimum inhibitory concentration <= NRG Piperacillin/tazobactam susceptibility t est by minimum inhibitory concentration <= NRG Ciprofloxacin susceptibility test by minimum inhibitor y concentration <= NRG Meropenem susceptibility test by minimum inhibitory co ncentration <= NRG Nitrofurantoin susceptibility test by mi nimum inhibitory concentration <= NRG Aztreonam susceptibility test by minimum inhibitory co ncentration <= NRG Extended spectrum beta lactamase (ESBL) producing bacteria susceptibility test by minimum inhibitory concentration - [facility] Bacterial susceptibility panel - 6 22:45 Gentamicin susceptibility test by minimum inhibitory c oncentration S NRG Vancomycin susceptibility test by minimum inhibitory c oncentration <= NRG Levofloxacin susceptibility test by minimum inhibitory concentration 2 NRG Tetracycline susceptibility test by minimum inhibitory concentration <= NRG Ampicillin susceptibility test by minimum inhibitory c oncentration <= NRG Nitrofurantoin susceptibility test by mi nimum inhibitory concentration 64 NRG Linezolid susceptibility test by minimum inhibitory co ncentration 2 [facility] Comprehensive metabolic panel - 09/23/16 14:56 Serum or plasma sodium measurement (moles/volume) 138 mmol/L 135-145 Serum or plasma potassium measurement (moles/volume) 3.7 mmol/L 3.6-5.0 Serum or plasma chloride measurement (moles/volume) 109 mmol/L 98-107 Carbon dioxide 20 mmol/L 21-32 Serum or plasma anion gap determination (moles/volume) 9 mmol/L 5-14 Serum or plasma urea nitrogen measurement (mass/volume ) 12 mg/dL 7-18 Serum or plasma creatinine measurement (mass/volume) 0.79 mg/dL 0.60-1.30 Serum or plasma urea nitrogen/creatinine mass ratio 15 NRG Serum or plasma creatinine measurement w ith calculation of estimated glomerular filtration rate > NRG Serum or plasma glucose measurement (mass/volume) 153 mg/dL 70-105 Serum or plasma calcium measurement (mass/volume) 9.2 mg/dL 8.5-10.1 Serum or plasma total bilirubin measurement (mass/volu me) 0.5 mg/dL 0.1-1.0 Serum or plasma alkaline phosphatase pritesh surement (enzymatic activity/volume) 130 U/L 40-136 Serum or plasma aspartate aminotransfera se measurement (enzymatic activity/volume) 19 U/L 5-34 Serum or plasma alanine aminotransferase measurement (enzymatic activity/volume) 19 U/L 0-55 Serum or plasma protein measurement (mass/volume) 6.6 g/dL 6.4-8.2 Serum or plasma albumin measurement (mass/volume) 4.0 g/dL 3.2-4.5 THYROID STIMULATING HORMONE - 09/23/16 1 4:56 THYROID STIMULATING HORMONE 2.71 u[iU]/mL 0.35-4.94 Hemoglobin A1c - 09/23/16 14:56 Hemoglobin A1c 10.2 % 4.5-6.2 Capillary blood glucose measurement by g lucometer (mass/volume) - 01/25/17 00:59 Capillary blood glucose measurement by glucometer (mas s/volume) 476 mg/dL 70-110 Complete urinalysis with reflex to cultu re - 01/25/17 01:00 Urine color determination YELLOW NRG Urine clarity determination CLEAR NR G Urine pH measurement by test strip 7 5-9 Specific gravity of urine by test strip 1.010 1.016-1.022 Urine protein assay by test strip, semi-quantitative NEGATIVE NEGATIVE Urine glucose detection by automated test strip 4+ NEGATIVE Erythrocytes detection in urine sediment by light micr oscopy 1+ NEGATIVE Urine ketones detection by automated test strip NE GATIVE NEGATIVE Urine nitrite detection by test strip NEGATIVE NEGATIVE Urine total bilirubin detection by test strip NEGA TIVE NEGATIVE Urine urobilinogen measurement by automated test strip (mass/volume) NORMAL NORMAL Urine leukocyte esterase detection by dipstick NEG ATIVE NEGATIVE Automated urine sediment erythrocyte cou nt by microscopy (number/high power field) RARE NRG Automated urine sediment leukocyte count by microscopy (number/high power field) RARE NRG Bacteria detection in urine sediment by light microsco py TRACE NRG Squamous epithelial cells detection in u rine sediment by light microscopy 5-10 NRG Crystals detection in urine sediment by light microsco py NONE NRG Casts detection in urine sediment by light microscopy NONE NRG Mucus detection in urine sediment by light microscopy NEGATIVE NRG Complete urinalysis with reflex to culture NO NRG Urine drug screening test - 01/25/17 01: 00 Urine phencyclidine detection by screening method NEGATIVE NEGATIVE Urine benzodiazepines detection by screening method POSITIVE NEGATIVE Urine cocaine detection NEGATIVE NEGATI VE Urine amphetamines detection by screening method N EGATIVE NEGATIVE Urine methamphetamine detection by screening method NEGATIVE NEGATIVE Urine cannabinoids detection by screening method N EGATIVE NEGATIVE Urine opiates detection by screening method NEGATI VE NEGATIVE Urine barbiturates detection NEGATIVE N EGATIVE Screening urine tricyclic antidepressants detection POSITIVE NEGATIVE Urine methadone detection by screening method NEGA TIVE NEGATIVE Urine oxycodone detection NEGATIVE NEGA TIVE Urine propoxyphene detection NEGATIVE N EGATIVE Complete blood count (CBC) with automate d white blood cell (WBC) differential - 01/25/17 01:10 Blood leukocytes automated count (number/volume) 9.8 10*3/uL 4.3-11.0 Blood erythrocytes automated count (number/volume) 4.74 10*6/uL 4.35-5.85 Venous blood hemoglobin measurement (mass/volume) 13.7 g/dL 11.5-16.0 Blood hematocrit (volume fraction) 39 % 35-52 Automated erythrocyte mean corpuscular volume 81 [ foz_us] 80-99 Automated erythrocyte mean corpuscular h emoglobin (mass per erythrocyte) 29 pg 25-34 Automated erythrocyte mean corpuscular h emoglobin concentration measurement (mass/volume) 36 g/dL 32-36 Automated erythrocyte distribution width ratio 13. 4 % 10.0- 14.5 Automated blood platelet count (count/volume) 203 10*3/uL [...] 10*3 1.0-4.0 Blood monocytes automated count (number/volume) 0. 9 10*3 0.0-1.0 Automated eosinophil count 0.3 10*3/uL 0 .0-0.3 Automated blood basophil count (count/volume) 0.1 10*3/uL 0.0-0.1 Serum or plasma choriogonadotropin (preg ronal test) detection - 01/25/17 01:10 Serum or plasma choriogonadotropin ( test) de tection NEGATIVE NEGATIVE Comprehensive metabolic panel - 01/25/17 01:10 Serum or plasma sodium measurement (moles/volume) 135 mmol/L 135-145 Serum or plasma potassium measurement (moles/volume) 3.2 mmol/L 3.6-5.0 Serum or plasma chloride measurement (moles/volume) 102 mmol/L 98-107 Carbon dioxide 20 mmol/L 21-32 Serum or plasma anion gap determination (moles/volume) 13 mmol/L 5-14 Serum or plasma urea nitrogen measurement (mass/volume ) 10 mg/dL 7-18 Serum or plasma creatinine measurement (mass/volume) 0.95 mg/dL 0.60-1.30 Serum or plasma urea nitrogen/creatinine mass ratio 11 NRG Serum or plasma creatinine measurement w ith calculation of estimated glomerular filtration rate > NRG Serum or plasma glucose measurement (mass/volume) 530 mg/dL 70-105 Serum or plasma calcium measurement (mass/volume) 9.1 mg/dL 8.5-10.1 Serum or plasma total bilirubin measurement (mass/volu me) 0.2 mg/dL 0.1-1.0 Serum or plasma alkaline phosphatase pritesh surement (enzymatic activity/volume) 109 U/L 40-136 Serum or plasma aspartate aminotransfera se measurement (enzymatic activity/volume) 11 U/L 5-34 Serum or plasma alanine aminotransferase measurement (enzymatic activity/volume) 22 U/L 0-55 Serum or plasma protein measurement (mass/volume) 6.6 g/dL 6.4-8.2 Serum or plasma albumin measurement (mass/volume) 4.0 g/dL 3.2-4.5 Magnesium - 01/25/17 01:10 Magnesium 1.6 mg/dL 1.8-2.4 Serum or plasma troponin i.cardiac measu rement (mass/volume) - 01/25/17 01:10 Serum or plasma troponin i.cardiac measurement (mass/v olume) < ng/mL <0.30 THYROID STIMULATING HORMONE - 01/25/17 0 1:10 THYROID STIMULATING HORMONE 3.82 u[iU]/mL 0.35-4.94 Hemoglobin A1c - 01/25/17 01:10 Hemoglobin A1c 12.4 % 4.5-6.2 Capillary blood glucose measurement by g lucometer (mass/volume) - 01/25/17 02:24 Capillary blood glucose measurement by glucometer (mas s/volume) 341 mg/dL 70-110 CBC With Differential/Platelet - 7 15:03 WBC 10.6 x10E3/uL 3.4-10.8 RBC 5.28 x10E6/uL 3.77-5.28 Hemoglobin 15.2 g/dL 11.1-15.9 Hematocrit 44.0 % 34.0-46.6 MCV 83 fL 79-97 MCH 28.8 pg 26.6-33.0 MCHC 34.5 g/dL 31.5-35.7 RDW 13.6 % 12.3-15.4 Platelets 261 x10E3/uL 150-379 Neutrophils 46 % Lymphs 42 % Monocytes 8 % Eos 4 % Basos 0 % Neutrophils (Absolute) 4.8 x10E3/uL 1.4- 7.0 Lymphs (Absolute) 4.5 x10E3/uL 0.7-3.1 Monocytes(Absolute) 0.8 x10E3/uL 0.1-0.9 Eos (Absolute) 0.5 x10E3/uL 0.0-0.4 Baso (Absolute) 0.0 x10E3/uL 0.0-0.2 Immature Granulocytes 0 % Immature Grans (Abs) 0.0 x10E3/uL 0.0-0. 1 Comp. Metabolic Panel (14) - 06/20/17 15 :03 Glucose, Serum 122 mg/dL 65-99 BUN 16 mg/dL 6-20 Creatinine, Serum 0.67 mg/dL 0.57-1.00 eGFR If NonAfricn Am 113 mL/min/1.73 >59 eGFR If Africn Am 131 mL/min/1.73 >5 9 BUN/Creatinine Ratio 24 9-23 Sodium, Serum 141 [...] >59 eGFR If Africn Am 131 mL/min/1.73 >5 9 BUN/Creatinine Ratio 24 9-23 Sodium, Serum 141 [...] IU/L 0-32 Capillary blood glucose measurement by g lucometer (mass/volume) - 07/09/17 17:26 Capillary blood glucose measurement by glucometer (mas s/volume) 482 mg/dL 70-110 Urine beta human chorionic gonadotropin (hCG) measurement - 07/09/17 17:58 Urine beta human chorionic gonadotropin (hCG) measurem ent NEGATIVE NEGATIVE Complete urinalysis with reflex to cultu re - 07/09/17 17:58 Urine color determination YELLOW NRG Urine clarity determination CLEAR NR G Urine pH measurement by test strip 6.5 5-9 Specific gravity of urine by test strip 1.015 1.016-1.022 Urine protein assay by test strip, semi-quantitative NEGATIVE NEGATIVE Urine glucose detection by automated test strip 4+ NEGATIVE Erythrocytes detection in urine sediment by light micr oscopy 1+ NEGATIVE Urine ketones detection by automated test strip NE GATIVE NEGATIVE Urine nitrite detection by test strip POSITIVE NEGATIVE Urine total bilirubin detection by test strip NEGA TIVE NEGATIVE Urine urobilinogen measurement by automated test strip (mass/volume) NORMAL NORMAL Urine leukocyte esterase detection by dipstick NEG ATIVE NEGATIVE Automated urine sediment erythrocyte cou nt by microscopy (number/high power field) NONE NRG Automated urine sediment leukocyte count by microscopy (number/high power field) RARE NRG Bacteria detection in urine sediment by light microsco py NEGATIVE NRG Squamous epithelial cells detection in u rine sediment by light microscopy 5-10 NRG Crystals detection in urine sediment by light microsco py NONE NRG Casts detection in urine sediment by light microscopy NONE NRG Mucus detection in urine sediment by light microscopy NEGATIVE NRG Complete urinalysis with reflex to culture YES NRG Yeast detection in urine sediment by light microscopy FEW NRG Bacterial urine culture - 07/09/17 17:58 URINE CULTURE RESULTS <10,000/ML NRG Complete blood count (CBC) with automate d white blood cell (WBC) differential - 07/09/17 18:12 Blood leukocytes automated count (number/volume) 9.6 10*3/uL 4.3-11.0 Blood erythrocytes automated count (number/volume) 4.70 10*6/uL 4.35-5.85 Venous blood hemoglobin measurement (mass/volume) 13.8 g/dL 11.5-16.0 Blood hematocrit (volume fraction) 39 % 35-52 Automated erythrocyte mean corpuscular volume 83 [ foz_us] 80-99 Automated erythrocyte mean corpuscular h emoglobin (mass per erythrocyte) 29 pg 25-34 Automated erythrocyte mean corpuscular h emoglobin concentration measurement (mass/volume) 35 g/dL 32-36 Automated erythrocyte distribution width ratio 13. 2 % 10.0- 14.5 Automated blood platelet count (count/volume) 216 10*3/uL [...] 10*3 1.0-4.0 Blood monocytes automated count (number/volume) 0. 9 10*3 0.0-1.0 Automated eosinophil count 0.7 10*3/uL 0 .0-0.3 Automated blood basophil count (count/volume) 0.1 10*3/uL 0.0-0.1 Comprehensive metabolic panel - 07/09/17 18:12 Serum or plasma sodium measurement (moles/volume) 133 mmol/L 135-145 Serum or plasma potassium measurement (moles/volume) 3.6 mmol/L 3.6-5.0 Serum or plasma chloride measurement (moles/volume) 102 mmol/L 98-107 Carbon dioxide 19 mmol/L 21-32 Serum or plasma anion gap determination (moles/volume) 12 mmol/L 5-14 Serum or plasma urea nitrogen measurement (mass/volume ) 13 mg/dL 7-18 Serum or plasma creatinine measurement (mass/volume) 0.93 mg/dL 0.60-1.30 Serum or plasma urea nitrogen/creatinine mass ratio 14 NRG Serum or plasma creatinine measurement w ith calculation of estimated glomerular filtration rate > NRG Serum or plasma glucose measurement (mass/volume) 485 mg/dL 70-105 Serum or plasma calcium measurement (mass/volume) 9.0 mg/dL 8.5-10.1 Serum or plasma total bilirubin measurement (mass/volu me) 0.2 mg/dL 0.1-1.0 Serum or plasma alkaline phosphatase pritesh surement (enzymatic activity/volume) 131 U/L 40-136 Serum or plasma aspartate aminotransfera se measurement (enzymatic activity/volume) 21 U/L 5-34 Serum or plasma alanine aminotransferase measurement (enzymatic activity/volume) 26 U/L 0-55 Serum or plasma protein measurement (mass/volume) 6.7 g/dL 6.4-8.2 Serum or plasma albumin measurement (mass/volume) 3.8 g/dL 3.2-4.5 Magnesium - 07/09/17 18:12 Magnesium 1.7 mg/dL 1.8-2.4 Complete urinalysis with reflex to cultu re - 07/29/17 01:24 Urine color determination RED NRG Urine clarity determination CLOUDY NR G Urine pH measurement by test strip 6 5-9 Specific gravity of urine by test strip 1.020 1.016-1.022 Urine protein assay by test strip, semi-quantitative 2+ NEGATIVE Urine glucose detection by automated test strip 4+ NEGATIVE Erythrocytes detection in urine sediment by light micr oscopy 5+ NEGATIVE Urine ketones detection by automated test strip NE GATIVE NEGATIVE Urine nitrite detection by test strip NEGATIVE NEGATIVE Urine total bilirubin detection by test strip NEGA TIVE NEGATIVE Urine urobilinogen measurement by automated test strip (mass/volume) NORMAL NORMAL Urine leukocyte esterase detection by dipstick 1+ NEGATIVE Automated urine sediment erythrocyte cou nt by microscopy (number/high power field) TNTC NRG Automated urine sediment leukocyte count by microscopy (number/high power field) [HPF] NRG Bacteria detection in urine sediment by light microsco py NEGATIVE NRG Squamous epithelial cells detection in u rine sediment by light microscopy 0-2 NRG Crystals detection in urine sediment by light microsco py NONE NRG Casts detection in urine sediment by light microscopy NONE NRG Mucus detection in urine sediment by light microscopy NEGATIVE NRG Complete urinalysis with reflex to culture NO NRG PROLACTIN - 11/18/17 10:18 PROLACTIN 61.7 ng/mL NRG Complete blood count (CBC) with automate d white blood cell (WBC) differential - 12/23/17 10:40 Blood leukocytes automated count (number/volume) 11.8 10*3/uL 4.3-11.0 Blood erythrocytes automated count (number/volume) 5.07 10*6/uL 4.35-5.85 Venous blood hemoglobin measurement (mass/volume) 15.1 g/dL 11.5-16.0 Blood hematocrit (volume fraction) 43 % 35-52 Automated erythrocyte mean corpuscular volume 84 [ foz_us] 80-99 Automated erythrocyte mean corpuscular h emoglobin (mass per erythrocyte) 30 pg 25-34 Automated erythrocyte mean corpuscular h emoglobin concentration measurement (mass/volume) 35 g/dL 32-36 Automated erythrocyte distribution width ratio 13. 5 % 10.0- 14.5 Automated blood platelet count (count/volume) 247 10*3/uL [...] 10*3 1.0-4.0 Blood monocytes automated count (number/volume) 1. 1 10*3 0.0-1.0 Automated eosinophil count 0.3 10*3/uL 0 .0-0.3 Automated blood basophil count (count/volume) 0.1 10*3/uL 0.0-0.1 Comprehensive metabolic panel - 12/23/17 10:40 Serum or plasma sodium measurement (moles/volume) 143 mmol/L 135-145 Serum or plasma potassium measurement (moles/volume) 3.0 mmol/L 3.6-5.0 Serum or plasma chloride measurement (moles/volume) 109 mmol/L 98-107 Carbon dioxide 21 mmol/L 21-32 Serum or plasma anion gap determination (moles/volume) 13 mmol/L 5-14 Serum or plasma urea nitrogen measurement (mass/volume ) 12 mg/dL 7-18 Serum or plasma creatinine measurement (mass/volume) 0.76 mg/dL 0.60-1.30 Serum or plasma urea nitrogen/creatinine mass ratio 16 NRG Serum or plasma creatinine measurement w ith calculation of estimated glomerular filtration rate > NRG Serum or plasma glucose measurement (mass/volume) 89 mg/dL 70-105 Serum or plasma calcium measurement (mass/volume) 9.0 mg/dL 8.5-10.1 Serum or plasma total bilirubin measurement (mass/volu me) 0.2 mg/dL 0.1-1.0 Serum or plasma alkaline phosphatase pritesh surement (enzymatic activity/volume) 97 U/L 40-136 Serum or plasma aspartate aminotransfera se measurement (enzymatic activity/volume) 18 U/L 5-34 Serum or plasma alanine aminotransferase measurement (enzymatic activity/volume) 27 U/L 0-55 Serum or plasma protein measurement (mass/volume) 6.4 g/dL 6.4-8.2 Serum or plasma albumin measurement (mass/volume) 4.0 g/dL 3.2-4.5 THYROID STIMULATING HORMONE - 12/23/17 1 0:40 THYROID STIMULATING HORMONE 1.92 u[iU]/mL 0.35-4.94 Hemoglobin A1c - 12/23/17 10:40 Blood hemoglobin A1C measurement (mass/volume) 15. 1 % 4.0- 5.6 MEAN BLOOD GLUCOSE 387 % <=126 Complete urinalysis with reflex to cultu re - 12/27/17 02:33 Urine color determination YELLOW NRG Urine clarity determination SLIGHTLY CLOUDY NRG Urine pH measurement by test strip 7 5-9 Specific gravity of urine by test strip 1.030 1.016-1.022 Urine protein assay by test strip, semi-quantitative NEGATIVE NEGATIVE Urine glucose detection by automated test strip 4+ NEGATIVE Erythrocytes detection in urine sediment by light micr oscopy NEGATIVE NEGATIVE Urine ketones detection by automated test strip NE GATIVE NEGATIVE Urine nitrite detection by test strip NEGATIVE NEGATIVE Urine total bilirubin detection by test strip NEGA TIVE NEGATIVE Urine urobilinogen measurement by automated test strip (mass/volume) NORMAL NORMAL Urine leukocyte esterase detection by dipstick 1+ NEGATIVE Automated urine sediment erythrocyte cou nt by microscopy (number/high power field) NONE NRG Automated urine sediment leukocyte count by microscopy (number/high power field) [HPF] NRG Bacteria detection in urine sediment by light microsco py TRACE NRG Squamous epithelial cells detection in u rine sediment by light microscopy 25-50 NRG Crystals detection in urine sediment by light microsco py NONE NRG Casts detection in urine sediment by light microscopy NONE NRG Mucus detection in urine sediment by light microscopy NEGATIVE NRG Complete urinalysis with reflex to culture NO NRG Yeast detection in urine sediment by light microscopy FEW NRG Urine drug screening test - 12/27/17 02: 33 Urine phencyclidine detection by screening method NEGATIVE NEGATIVE Urine benzodiazepines detection by screening method NEGATIVE NEGATIVE Urine cocaine detection NEGATIVE NEGATI VE Urine amphetamines detection by screening method N EGATIVE NEGATIVE Urine methamphetamine detection by screening method NEGATIVE NEGATIVE Urine cannabinoids detection by screening method N EGATIVE NEGATIVE Urine opiates detection by screening method POSITI VE NEGATIVE Urine barbiturates detection NEGATIVE N EGATIVE Screening urine tricyclic antidepressants detection NEGATIVE NEGATIVE Urine methadone detection by screening method NEGA TIVE NEGATIVE Urine oxycodone detection NEGATIVE NEGA TIVE Urine propoxyphene detection NEGATIVE N EGATIVE Capillary blood glucose measurement by g lucometer (mass/volume) - 12/27/17 02:38 Capillary blood glucose measurement by glucometer (mas s/volume) 496 mg/dL 70-110 Complete blood count (CBC) with automate d white blood cell (WBC) differential - 12/27/17 02:40 Blood leukocytes automated count (number/volume) 10.0 10*3/uL 4.3-11.0 Blood erythrocytes automated count (number/volume) 5.17 10*6/uL 4.35-5.85 Venous blood hemoglobin measurement (mass/volume) 15.4 g/dL 11.5-16.0 Blood hematocrit (volume fraction) 44 % 35-52 Automated erythrocyte mean corpuscular volume 84 [ foz_us] 80-99 Automated erythrocyte mean corpuscular h emoglobin (mass per erythrocyte) 30 pg 25-34 Automated erythrocyte mean corpuscular h emoglobin concentration measurement (mass/volume) 35 g/dL 32-36 Automated erythrocyte distribution width ratio 13. 0 % 10.0- 14.5 Automated blood platelet count (count/volume) 205 10*3/uL [...] 10*3 1.0-4.0 Blood monocytes automated count (number/volume) 0. 8 10*3 0.0-1.0 Automated eosinophil count 0.3 10*3/uL 0 .0-0.3 Automated blood basophil count (count/volume) 0.1 10*3/uL 0.0-0.1 Comprehensive metabolic panel - 12/27/17 02:40 Serum or plasma sodium measurement (moles/volume) 132 mmol/L 135-145 Serum or plasma potassium measurement (moles/volume) 4.4 mmol/L 3.6-5.0 Serum or plasma chloride measurement (moles/volume) 94 mmol/L 98-107 Carbon dioxide 22 mmol/L 21-32 Serum or plasma anion gap determination (moles/volume) 16 mmol/L 5-14 Serum or plasma urea nitrogen measurement (mass/volume ) 20 mg/dL 7-18 Serum or plasma creatinine measurement (mass/volume) 0.99 mg/dL 0.60-1.30 Serum or plasma urea nitrogen/creatinine mass ratio 20 NRG Serum or plasma creatinine measurement w ith calculation of estimated glomerular filtration rate > NRG Serum or plasma glucose measurement (mass/volume) 533 mg/dL 70-105 Serum or plasma calcium measurement (mass/volume) 9.6 mg/dL 8.5-10.1 Serum or plasma total bilirubin measurement (mass/volu me) 0.3 mg/dL 0.1-1.0 Serum or plasma alkaline phosphatase pritesh surement (enzymatic activity/volume) 117 U/L 40-136 Serum or plasma aspartate aminotransfera se measurement (enzymatic activity/volume) 21 U/L 5-34 Serum or plasma alanine aminotransferase measurement (enzymatic activity/volume) 34 U/L 0-55 Serum or plasma protein measurement (mass/volume) 7.5 g/dL 6.4-8.2 Serum or plasma albumin measurement (mass/volume) 4.4 g/dL 3.2-4.5 Serum or plasma amylase measurement (enz ymatic activity/volume) - 12/27/17 02:40 Serum or plasma amylase measurement (enzymatic activit y/volume) 44 U/L 25-125 Lipase - 12/27/17 02:40 Lipase 50 U/L 8-78 Serum or plasma ethanol measurement (mas s/volume) - 12/27/17 02:40 Serum or plasma ethanol measurement (mass/volume) < mg/dL <10 Arterial blood gas measurement - 8 03:38 Blood pCO2 40 mm[Hg] 35-45 Blood pO2 74 mm[Hg] 79-93 Arterial blood bicarbonate measurement (moles/volume) 25 mmol/L 23-27 Arterial blood base excess by calculation 0.4 mmol /L -2.5-2.5 Arterial blood oxygen saturation measurement 96 % 94-100 * Inhaled oxygen flow rate RA NRG Arterial blood pH measurement with patient temperature correction 7.40 7.37-7.43 Arterial blood carbon dioxide, total measurement (mole s/volume) 26.1 mmol/L 21.0-31.0 Body site L RAD NRG Assessment of wrist artery patency prior to arterial p uncture YES-POS NRG Setting of ventilation mode NO NR G Measurement of body temperature 97.2 NRG Capillary blood glucose measurement by g lucometer (mass/volume) - 12/27/17 05:17 Capillary blood glucose measurement by glucometer (mas s/volume) 299 mg/dL 70-110 Capillary blood glucose measurement by g lucometer (mass/volume) - 01/29/18 01:28 Capillary blood glucose measurement by glucometer (mas s/volume) 232 mg/dL 70-110 Serum or plasma choriogonadotropin (preg ronal test) detection - 01/29/18 01:32 Serum or plasma choriogonadotropin ( test) de tection NEGATIVE NEGATIVE Complete blood count (CBC) with automate d white blood cell (WBC) differential - 01/29/18 01:32 Blood leukocytes automated count (number/volume) 13.2 10*3/uL 4.3-11.0 Blood erythrocytes automated count (number/volume) 5.22 10*6/uL 4.35-5.85 Venous blood hemoglobin measurement (mass/volume) 15.6 g/dL 11.5-16.0 Blood hematocrit (volume fraction) 43 % 35-52 Automated erythrocyte mean corpuscular volume 83 [ foz_us] 80-99 Automated erythrocyte mean corpuscular h emoglobin (mass per erythrocyte) 30 pg 25-34 Automated erythrocyte mean corpuscular h emoglobin concentration measurement (mass/volume) 36 g/dL 32-36 Automated erythrocyte distribution width ratio 13. 3 % 10.0- 14.5 Automated blood platelet count (count/volume) 252 10*3/uL [...] 10*3 1.0-4.0 Blood monocytes automated count (number/volume) 0. 8 10*3 0.0-1.0 Automated eosinophil count 0.3 10*3/uL 0 .0-0.3 Automated blood basophil count (count/volume) 0.1 10*3/uL 0.0-0.1 Comprehensive metabolic panel - 01/29/18 01:32 Serum or plasma sodium measurement (moles/volume) 137 mmol/L 135-145 Serum or plasma potassium measurement (moles/volume) 2.9 mmol/L 3.6-5.0 Serum or plasma chloride measurement (moles/volume) 107 mmol/L 98-107 Carbon dioxide 17 mmol/L 21-32 Serum or plasma anion gap determination (moles/volume) 13 mmol/L 5-14 Serum or plasma urea nitrogen measurement (mass/volume ) 16 mg/dL 7-18 Serum or plasma creatinine measurement (mass/volume) 0.92 mg/dL 0.60-1.30 Serum or plasma urea nitrogen/creatinine mass ratio 17 NRG Serum or plasma creatinine measurement w ith calculation of estimated glomerular filtration rate > NRG Serum or plasma glucose measurement (mass/volume) 249 mg/dL 70-105 Serum or plasma calcium measurement (mass/volume) 10.5 mg/dL 8.5-10.1 Serum or plasma total bilirubin measurement (mass/volu me) 0.3 mg/dL 0.1-1.0 Serum or plasma alkaline phosphatase pritesh surement (enzymatic activity/volume) 122 U/L 40-136 Serum or plasma aspartate aminotransfera se measurement (enzymatic activity/volume) 12 U/L 5-34 Serum or plasma alanine aminotransferase measurement (enzymatic activity/volume) 26 U/L 0-55 Serum or plasma protein measurement (mass/volume) 7.6 g/dL 6.4-8.2 Serum or plasma albumin measurement (mass/volume) 4.6 g/dL 3.2-4.5 Magnesium - 01/29/18 01:32 Magnesium 1.7 mg/dL 1.8-2.4 Serum or plasma amylase measurement (enz ymatic activity/volume) - 01/29/18 01:32 Serum or plasma amylase measurement (enzymatic activit y/volume) 41 U/L 25-125 Lipase - 01/29/18 01:32 Lipase 41 U/L 8-78 Serum or plasma thyroxine (T4) free ge urement (mass/volume) - 01/29/18 01:32 Serum or plasma thyroxine (T4) free measurement (mass/ volume) 0.96 ng/dL 0.70-1.48 Serum or plasma thyrotropin measurement by detection limit <=0.05 miu/l (units/volume) - 01/29/18 01:32 Serum or plasma thyrotropin measurement by detection limit <=0.05 miu/l (units/volume) 5.17 u[iU]/mL 0.35-4.94 Serum or plasma salicylates measurement (mass/volume) - 01/29/18 01:32 Serum or plasma salicylates measurement (mass/volume) < mg/dL 5.0-20.0 Serum or plasma acetaminophen measuremen t (mass/volume) - 01/29/18 01:32 Serum or plasma acetaminophen measurement (mass/volume ) < ug/mL 10-30 Serum or plasma ethanol measurement (mas s/volume) - 01/29/18 01:32 Serum or plasma ethanol measurement (mass/volume) < mg/dL <10 Urine drug screening test - 01/29/18 01: 58 Urine phencyclidine detection by screening method NEGATIVE NEGATIVE Urine benzodiazepines detection by screening method POSITIVE NEGATIVE Urine cocaine detection NEGATIVE NEGATI VE Urine amphetamines detection by screening method N EGATIVE NEGATIVE Urine methamphetamine detection by screening method NEGATIVE NEGATIVE Urine cannabinoids detection by screening method N EGATIVE NEGATIVE Urine opiates detection by screening method NEGATI VE NEGATIVE Urine barbiturates detection NEGATIVE N EGATIVE Screening urine tricyclic antidepressants detection POSITIVE NEGATIVE Urine methadone detection by screening method NEGA TIVE NEGATIVE Urine oxycodone detection NEGATIVE NEGA TIVE Urine propoxyphene detection NEGATIVE N EGATIVE Complete urinalysis with reflex to cultu re - 01/29/18 01:58 Urine color determination YELLOW NRG Urine clarity determination SLIGHTLY CLOUDY NRG Urine pH measurement by test strip 5 5-9 Specific gravity of urine by test strip 1.025 1.016-1.022 Urine protein assay by test strip, semi-quantitative 2+ NEGATIVE Urine glucose detection by automated test strip 4+ NEGATIVE Erythrocytes detection in urine sediment by light micr oscopy 1+ NEGATIVE Urine ketones detection by automated test strip 1+ NEGATIVE Urine nitrite detection by test strip NEGATIVE NEGATIVE Urine total bilirubin detection by test strip NEGA TIVE NEGATIVE Urine urobilinogen measurement by automated test strip (mass/volume) NORMAL NORMAL Urine leukocyte esterase detection by dipstick 2+ NEGATIVE Automated urine sediment erythrocyte cou nt by microscopy (number/high power field) [HPF] NRG Automated urine sediment leukocyte count by microscopy (number/high power field) [HPF] NRG Bacteria detection in urine sediment by light microsco py FEW NRG Squamous epithelial cells detection in u rine sediment by light microscopy 5-10 NRG Crystals detection in urine sediment by light microsco py NONE NRG Casts detection in urine sediment by light microscopy NONE NRG Mucus detection in urine sediment by light microscopy NEGATIVE NRG Complete urinalysis with reflex to culture YES NRG Yeast detection in urine sediment by light microscopy FEW NRG Bacterial urine culture - 01/29/18 01:58 URINE CULTURE RESULTS MORE THAN 3 ISOLATES NRG Serum or plasma potassium measurement (m oles/volume) - 01/29/18 05:30 Serum or plasma potassium measurement (moles/volume) 2.6 mmol/L 3.6-5.0 Capillary blood glucose measurement by g lucometer (mass/volume) - 01/29/18 05:31 Capillary blood glucose measurement by glucometer (mas s/volume) 69 mg/dL 70-110 Capillary blood glucose measurement by g lucometer (mass/volume) - 01/29/18 07:36 Capillary blood glucose measurement by glucometer (mas s/volume) 172 mg/dL 70-110 Whole blood basic metabolic panel - 06/10 11:04 Serum or plasma sodium measurement (moles/volume) 137 mmol/L 135-145 Serum or plasma potassium measurement (moles/volume) 3.5 mmol/L 3.6-5.0 Serum or plasma chloride measurement (moles/volume) 110 mmol/L 98-107 Carbon dioxide 21 mmol/L 21-32 Serum or plasma anion gap determination (moles/volume) 6 mmol/L 5-14 Serum or plasma urea nitrogen measurement (mass/volume ) 18 mg/dL 7-18 Serum or plasma creatinine measurement (mass/volume) 0.74 mg/dL 0.60-1.30 Serum or plasma urea nitrogen/creatinine mass ratio 24 NRG Serum or plasma creatinine measurement w ith calculation of estimated glomerular filtration rate > NRG Serum or plasma glucose measurement (mass/volume) 212 mg/dL 70-105 Serum or plasma calcium measurement (mass/volume) 9.0 mg/dL 8.5-10.1 Magnesium - 01/29/18 11:04 Magnesium 1.8 mg/dL 1.8-2.4 Capillary blood glucose measurement by g lucometer (mass/volume) - 01/29/18 12:16 Capillary blood glucose measurement by glucometer (mas s/volume) 203 mg/dL 70-110 Capillary blood glucose measurement by g lucometer (mass/volume) - 01/29/18 16:12 Capillary blood glucose measurement by glucometer (mas s/volume) 261 mg/dL 70-110 Capillary blood glucose measurement by g lucometer (mass/volume) - 01/29/18 20:00 Capillary blood glucose measurement by glucometer (mas s/volume) 242 mg/dL 70-110 Complete blood count (CBC) with automate d white blood cell (WBC) differential - 01/30/18 04:25 Blood leukocytes automated count (number/volume) 10.0 10*3/uL 4.3-11.0 Blood erythrocytes automated count (number/volume) 4.84 10*6/uL 4.35-5.85 Venous blood hemoglobin measurement (mass/volume) 14.4 g/dL 11.5-16.0 Blood hematocrit (volume fraction) 41 % 35-52 Automated erythrocyte mean corpuscular volume 85 [ foz_us] 80-99 Automated erythrocyte mean corpuscular h emoglobin (mass per erythrocyte) 30 pg 25-34 Automated erythrocyte mean corpuscular h emoglobin concentration measurement (mass/volume) 35 g/dL 32-36 Automated erythrocyte distribution width ratio 13. 8 % 10.0- 14.5 Automated blood platelet count (count/volume) 225 10*3/uL [...] 10*3 1.0-4.0 Blood monocytes automated count (number/volume) 0. 8 10*3 0.0-1.0 Automated eosinophil count 0.4 10*3/uL 0 .0-0.3 Automated blood basophil count (count/volume) 0.1 10*3/uL 0.0-0.1 Comprehensive metabolic panel - 01/30/18 04:25 Serum or plasma sodium measurement (moles/volume) 139 mmol/L 135-145 Serum or plasma potassium measurement (moles/volume) 4.0 mmol/L 3.6-5.0 Serum or plasma chloride measurement (moles/volume) 111 mmol/L 98-107 Carbon dioxide 19 mmol/L 21-32 Serum or plasma anion gap determination (moles/volume) 9 mmol/L 5-14 Serum or plasma urea nitrogen measurement (mass/volume ) 16 mg/dL 7-18 Serum or plasma creatinine measurement (mass/volume) 0.74 mg/dL 0.60-1.30 Serum or plasma urea nitrogen/creatinine mass ratio 22 NRG Serum or plasma creatinine measurement w ith calculation of estimated glomerular filtration rate > NRG Serum or plasma glucose measurement (mass/volume) 113 mg/dL 70-105 Serum or plasma calcium measurement (mass/volume) 9.0 mg/dL 8.5-10.1 Serum or plasma total bilirubin measurement (mass/volu me) 0.4 mg/dL 0.1-1.0 Serum or plasma alkaline phosphatase pritesh surement (enzymatic activity/volume) 100 U/L 40-136 Serum or plasma aspartate aminotransfera se measurement (enzymatic activity/volume) 18 U/L 5-34 Serum or plasma alanine aminotransferase measurement (enzymatic activity/volume) 26 U/L 0-55 Serum or plasma protein measurement (mass/volume) 6.0 g/dL 6.4-8.2 Serum or plasma albumin measurement (mass/volume) 3.8 g/dL 3.2-4.5 Magnesium - 01/30/18 04:25 Magnesium 1.7 mg/dL 1.8-2.4 Capillary blood glucose measurement by g lucometer (mass/volume) - 01/30/18 05:40 Capillary blood glucose measurement by glucometer (mas s/volume) 123 mg/dL 70-110 Capillary blood glucose measurement by g lucometer (mass/volume) - 01/30/18 12:26 Capillary blood glucose measurement by glucometer (mas s/volume) 129 mg/dL 70-110 Complete urinalysis with reflex to cultu re - 03/12/18 08:59 Urine color determination YELLOW NRG Urine clarity determination CLEAR NR G Urine pH measurement by test strip 5 5-9 Specific gravity of urine by test strip 1.025 1.016-1.022 Urine protein assay by test strip, semi-quantitative NEGATIVE NEGATIVE Urine glucose detection by automated test strip NE GATIVE NEGATIVE Erythrocytes detection in urine sediment by light micr oscopy NEGATIVE NEGATIVE Urine ketones detection by automated test strip NE GATIVE NEGATIVE Urine nitrite detection by test strip NEGATIVE NEGATIVE Urine total bilirubin detection by test strip NEGA TIVE NEGATIVE Urine urobilinogen measurement by automated test strip (mass/volume) NORMAL NORMAL Urine leukocyte esterase detection by dipstick 2+ NEGATIVE Automated urine sediment erythrocyte cou nt by microscopy (number/high power field) NONE NRG Automated urine sediment leukocyte count by microscopy (number/high power field) [HPF] NRG Bacteria detection in urine sediment by light microsco py MODERATE NRG Squamous epithelial cells detection in u rine sediment by light microscopy 5-10 NRG Crystals detection in urine sediment by light microsco py NONE NRG Casts detection in urine sediment by light microscopy NONE NRG Mucus detection in urine sediment by light microscopy MODERATE NRG Complete urinalysis with reflex to culture YES NRG Bacterial urine culture - 03/12/18 08:59 Complete blood count (CBC) with automate d white blood cell (WBC) differential - 03/12/18 09:10 Blood leukocytes automated count (number/volume) 8.6 10*3/uL 4.3-11.0 Blood erythrocytes automated count (number/volume) 4.59 10*6/uL 4.35-5.85 Venous blood hemoglobin measurement (mass/volume) 13.8 g/dL 11.5-16.0 Blood hematocrit (volume fraction) 39 % 35-52 Automated erythrocyte mean corpuscular volume 84 [ foz_us] 80-99 Automated erythrocyte mean corpuscular h emoglobin (mass per erythrocyte) 30 pg 25-34 Automated erythrocyte mean corpuscular h emoglobin concentration measurement (mass/volume) 36 g/dL 32-36 Automated erythrocyte distribution width ratio 13. 9 % 10.0- 14.5 Automated blood platelet count (count/volume) 243 10*3/uL [...] 10*3 1.0-4.0 Blood monocytes automated count (number/volume) 0. 7 10*3 0.0-1.0 Automated eosinophil count 0.4 10*3/uL 0 .0-0.3 Automated blood basophil count (count/volume) 0.0 10*3/uL 0.0-0.1 Complete blood count (CBC) with automate d white blood cell (WBC) differential - 05/03/18 00:33 Blood leukocytes automated count (number/volume) 10.8 10*3/uL 4.3-11.0 Blood erythrocytes automated count (number/volume) 4.82 10*6/uL 4.35-5.85 Venous blood hemoglobin measurement (mass/volume) 14.5 g/dL 11.5-16.0 Blood hematocrit (volume fraction) 40 % 35-52 Automated erythrocyte mean corpuscular volume 82 [ foz_us] 80-99 Automated erythrocyte mean corpuscular h emoglobin (mass per erythrocyte) 30 pg 25-34 Automated erythrocyte mean corpuscular h emoglobin concentration measurement (mass/volume) 37 g/dL 32-36 Automated erythrocyte distribution width ratio 13. 1 % 10.0- 14.5 Automated blood platelet count (count/volume) 256 10*3/uL [...] 10*3 1.0-4.0 Blood monocytes automated count (number/volume) 0. 9 10*3 0.0-1.0 Automated eosinophil count 0.3 10*3/uL 0 .0-0.3 Automated blood basophil count (count/volume) 0.0 10*3/uL 0.0-0.1 Comprehensive metabolic panel - 05/03/18 00:33 Serum or plasma sodium measurement (moles/volume) 135 mmol/L 135-145 Serum or plasma potassium measurement (moles/volume) 3.7 mmol/L 3.6-5.0 Serum or plasma chloride measurement (moles/volume) 105 mmol/L 98-107 Carbon dioxide 19 mmol/L 21-32 Serum or plasma anion gap determination (moles/volume) 11 mmol/L 5-14 Serum or plasma urea nitrogen measurement (mass/volume ) 18 mg/dL 7-18 Serum or plasma creatinine measurement (mass/volume) 0.94 mg/dL 0.60-1.30 Serum or plasma urea nitrogen/creatinine mass ratio 19 NRG Serum or plasma creatinine measurement w ith calculation of estimated glomerular filtration rate > NRG Serum or plasma glucose measurement (mass/volume) 423 mg/dL 70-105 Serum or plasma calcium measurement (mass/volume) 9.4 mg/dL 8.5-10.1 Serum or plasma total bilirubin measurement (mass/volu me) 0.3 mg/dL 0.1-1.0 Serum or plasma alkaline phosphatase pritesh surement (enzymatic activity/volume) 112 U/L 40-136 Serum or plasma aspartate aminotransfera se measurement (enzymatic activity/volume) 13 U/L 5-34 Serum or plasma alanine aminotransferase measurement (enzymatic activity/volume) 15 U/L 0-55 Serum or plasma protein measurement (mass/volume) 6.6 g/dL 6.4-8.2 Serum or plasma albumin measurement (mass/volume) 4.1 g/dL 3.2-4.5 Serum or plasma salicylates measurement (mass/volume) - 05/03/18 00:33 Serum or plasma salicylates measurement (mass/volume) < mg/dL 5.0-20.0 Serum or plasma acetaminophen measuremen t (mass/volume) - 05/03/18 00:33 Serum or plasma acetaminophen measurement (mass/volume ) < ug/mL 10-30 Serum or plasma ethanol measurement (mas s/volume) - 05/03/18 00:33 Serum or plasma ethanol measurement (mass/volume) < mg/dL <10 Serum or plasma thyrotropin measurement by detection limit <=0.05 miu/l (units/volume) - 05/03/18 00:33 Serum or plasma thyrotropin measurement by detection limit <=0.05 miu/l (units/volume) 1.89 u[iU]/mL 0.35-4.94 Urine beta human chorionic gonadotropin (hCG) measurement - 05/03/18 00:35 Urine beta human chorionic gonadotropin (hCG) measurem ent NEGATIVE NEGATIVE Urine drug screening test - 05/03/18 00: 35 Urine phencyclidine detection by screening method NEGATIVE NEGATIVE Urine benzodiazepines detection by screening method POSITIVE NEGATIVE Urine cocaine detection NEGATIVE NEGATI VE Urine amphetamines detection by screening method N EGATIVE NEGATIVE Urine methamphetamine detection by screening method NEGATIVE NEGATIVE Urine cannabinoids detection by screening method N EGATIVE NEGATIVE Urine opiates detection by screening method POSITI VE NEGATIVE Urine barbiturates detection NEGATIVE N EGATIVE Screening urine tricyclic antidepressants detection POSITIVE NEGATIVE Urine methadone detection by screening method NEGA TIVE NEGATIVE Urine oxycodone detection NEGATIVE NEGA TIVE Urine propoxyphene detection NEGATIVE N EGATIVE Complete urinalysis with reflex to cultu re - 05/03/18 00:35 Urine color determination YELLOW NRG Urine clarity determination CLEAR NR G Urine pH measurement by test strip 6 5-9 Specific gravity of urine by test strip 1.020 1.016-1.022 Urine protein assay by test strip, semi-quantitative 1+ NEGATIVE Urine glucose detection by automated test strip 4+ NEGATIVE Erythrocytes detection in urine sediment by light micr oscopy 1+ NEGATIVE Urine ketones detection by automated test strip NE GATIVE NEGATIVE Urine nitrite detection by test strip NEGATIVE NEGATIVE Urine total bilirubin detection by test strip NEGA TIVE NEGATIVE Urine urobilinogen measurement by automated test strip (mass/volume) NORMAL NORMAL Urine leukocyte esterase detection by dipstick 1+ NEGATIVE Automated urine sediment erythrocyte cou nt by microscopy (number/high power field) [HPF] NRG Automated urine sediment leukocyte count by microscopy (number/high power field) [HPF] NRG Bacteria detection in urine sediment by light microsco py FEW NRG Squamous epithelial cells detection in u rine sediment by light microscopy 2-5 NRG Crystals detection in urine sediment by light microsco py NONE NRG Casts detection in urine sediment by light microscopy NONE NRG Mucus detection in urine sediment by light microscopy NEGATIVE NRG Complete urinalysis with reflex to culture YES NRG Yeast detection in urine sediment by light microscopy MODERATE NRG Bacterial urine culture - 05/03/18 00:35 Bacterial urine culture RML NRG COLONY COUNT . NRG Capillary blood glucose measurement by g lucometer (mass/volume) - 05/03/18 02:35 Capillary blood glucose measurement by glucometer (mas s/volume) 267 mg/dL 70-110 Capillary blood glucose measurement by g lucometer (mass/volume) - 05/03/18 03:43 Capillary blood glucose measurement by glucometer (mas s/volume) 213 mg/dL 70-110 Complete blood count (CBC) with automate d white blood cell (WBC) differential - 08/15/18 21:45 Blood leukocytes automated count (number/volume) 10.7 10*3/uL 4.3-11.0 Blood erythrocytes automated count (number/volume) 4.46 10*6/uL 4.35-5.85 Venous blood hemoglobin measurement (mass/volume) 13.0 g/dL 11.5-16.0 Blood hematocrit (volume fraction) 38 % 35-52 Automated erythrocyte mean corpuscular volume 85 [ foz_us] 80-99 Automated erythrocyte mean corpuscular h emoglobin (mass per erythrocyte) 29 pg 25-34 Automated erythrocyte mean corpuscular h emoglobin concentration measurement (mass/volume) 34 g/dL 32-36 Automated erythrocyte distribution width ratio 12. 7 % 10.0- 14.5 Automated blood platelet count (count/volume) 247 10*3/uL 130-400 Automated blood platelet mean volume measurement 10.3 [foz_us] 7.4-10.4 Automated blood neutrophils/100 leukocytes 69 % 42-75 Automated blood lymphocytes/100 leukocytes 20 % 12-44 Blood monocytes/100 leukocytes 9 % 0-12 Automated blood eosinophils/100 leukocytes 2 % 0-10 Automated blood basophils/100 leukocytes 0 % 0-10 Blood neutrophils automated count (number/volume) 7.4 10*3 1.8-7.8 Blood lymphocytes automated count (number/volume) 2.1 10*3 1.0-4.0 Blood monocytes automated count (number/volume) 0. 9 10*3 0.0-1.0 Automated eosinophil count 0.2 10*3/uL 0 .0-0.3 Automated blood basophil count (count/volume) 0.0 10*3/uL 0.0-0.1 Comprehensive metabolic panel - 08/15/18 21:45 Serum or plasma sodium measurement (moles/volume) 140 mmol/L 135-145 Serum or plasma potassium measurement (moles/volume) 3.3 mmol/L 3.6-5.0 Serum or plasma chloride measurement (moles/volume) 111 mmol/L 98-107 Carbon dioxide 17 mmol/L 21-32 Serum or plasma anion gap determination (moles/volume) 12 mmol/L 5-14 Serum or plasma urea nitrogen measurement (mass/volume ) 13 mg/dL 7-18 Serum or plasma creatinine measurement (mass/volume) 0.69 mg/dL 0.60-1.30 Serum or plasma urea nitrogen/creatinine mass ratio 19 NRG Serum or plasma creatinine measurement w ith calculation of estimated glomerular filtration rate > NRG Serum or plasma glucose measurement (mass/volume) 166 mg/dL 70-105 Serum or plasma calcium measurement (mass/volume) 9.1 mg/dL 8.5-10.1 Serum or plasma total bilirubin measurement (mass/volu me) 0.2 mg/dL 0.1-1.0 Serum or plasma alkaline phosphatase pritesh surement (enzymatic activity/volume) 116 U/L 40-136 Serum or plasma aspartate aminotransfera se measurement (enzymatic activity/volume) 12 U/L 5-34 Serum or plasma alanine aminotransferase measurement (enzymatic activity/volume) 18 U/L 0-55 Serum or plasma protein measurement (mass/volume) 6.5 g/dL 6.4-8.2 Serum or plasma albumin measurement (mass/volume) 4.0 g/dL 3.2-4.5 CALCIUM CORRECTED 9.1 mg/dL 8.5-10.1 Serum or plasma potassium measurement (m oles/volume) - 11/10/18 12:00 Serum or plasma potassium measurement (moles/volume) 4.1 mmol/L 3.6-5.0 Complete blood count (CBC) with automate d white blood cell (WBC) differential - 11/13/18 02:22 Blood leukocytes automated count (number/volume) 9.9 10*3/uL 4.3-11.0 Blood erythrocytes automated count (number/volume) 4.99 10*6/uL 4.35-5.85 Venous blood hemoglobin measurement (mass/volume) 14.5 g/dL 11.5-16.0 Blood hematocrit (volume fraction) 42 % 35-52 Automated erythrocyte mean corpuscular volume 84 [ foz_us] 80-99 Automated erythrocyte mean corpuscular h emoglobin (mass per erythrocyte) 29 pg 25-34 Automated erythrocyte mean corpuscular h emoglobin concentration measurement (mass/volume) 35 g/dL 32-36 Automated erythrocyte distribution width ratio 13. 2 % 10.0- 14.5 Automated blood platelet count (count/volume) 266 10*3/uL 130-400 Automated blood platelet mean volume measurement 10.7 [foz_us] 7.4-10.4 Automated blood neutrophils/100 leukocytes 44 % 42-75 Automated blood lymphocytes/100 leukocytes 45 % 12-44 Blood monocytes/100 leukocytes 8 % 0-12 Automated blood eosinophils/100 leukocytes 3 % 0-10 Automated blood basophils/100 leukocytes 1 % 0-10 Blood neutrophils automated count (number/volume) 4.4 10*3 1.8-7.8 Blood lymphocytes automated count (number/volume) 4.4 10*3 1.0-4.0 Blood monocytes automated count (number/volume) 0. 7 10*3 0.0-1.0 Automated eosinophil count 0.3 10*3/uL 0 .0-0.3 Automated blood basophil count (count/volume) 0.1 10*3/uL 0.0-0.1 Comprehensive metabolic panel - 11/13/18 02:22 Serum or plasma sodium measurement (moles/volume) 138 mmol/L 135-145 Serum or plasma potassium measurement (moles/volume) 3.7 mmol/L 3.6-5.0 Serum or plasma chloride measurement (moles/volume) 107 mmol/L 98-107 Carbon dioxide 22 mmol/L 21-32 Serum or plasma anion gap determination (moles/volume) 9 mmol/L 5-14 Serum or plasma urea nitrogen measurement (mass/volume ) 18 mg/dL 7-18 Serum or plasma creatinine measurement (mass/volume) 0.74 mg/dL 0.60-1.30 Serum or plasma urea nitrogen/creatinine mass ratio 24 NRG Serum or plasma creatinine measurement w ith calculation of estimated glomerular filtration rate > NRG Serum or plasma glucose measurement (mass/volume) 79 mg/dL 70-105 Serum or plasma calcium measurement (mass/volume) 10.0 mg/dL 8.5-10.1 Serum or plasma total bilirubin measurement (mass/volu me) 0.2 mg/dL 0.1-1.0 Serum or plasma alkaline phosphatase pritesh surement (enzymatic activity/volume) 98 U/L 40-136 Serum or plasma aspartate aminotransfera se measurement (enzymatic activity/volume) 14 U/L 5-34 Serum or plasma alanine aminotransferase measurement (enzymatic activity/volume) 16 U/L 0-55 Serum or plasma protein measurement (mass/volume) 6.9 g/dL 6.4-8.2 Serum or plasma albumin measurement (mass/volume) 4.1 g/dL 3.2-4.5 CALCIUM CORRECTED 9.9 mg/dL 8.5-10.1 Magnesium - 11/13/18 02:22 Magnesium 2.0 mg/dL 1.8-2.4 THYROID STIMULATING HORMONE - 11/13/18 0 2:22 THYROID STIMULATING HORMONE 2.28 u[iU]/mL 0.35-4.94 Serum or plasma thyroxine (T4) free ge urement (mass/volume) - 11/13/18 02:22 Serum or plasma thyroxine (T4) free measurement (mass/ volume) 0.85 ng/dL 0.70-1.48 VITAMIN D 25-HYDROXY - 11/13/18 02:22 VITAMIN D 25-HYDROXY (TOTAL) 28.2 % 3 0.0-100.0 Whole blood basic metabolic panel - 07/24 05/11 11:20 Serum or plasma sodium measurement (moles/volume) 131 mmol/L 135-145 Serum or plasma potassium measurement (moles/volume) 4.2 mmol/L 3.6-5.0 Serum or plasma chloride measurement (moles/volume) 99 mmol/L 98-107 Carbon dioxide 21 mmol/L 21-32 Serum or plasma anion gap determination (moles/volume) 11 mmol/L 5-14 Serum or plasma urea nitrogen measurement (mass/volume ) 14 mg/dL 7-18 Serum or plasma creatinine measurement (mass/volume) 1.23 mg/dL 0.60-1.30 Serum or plasma urea nitrogen/creatinine mass ratio 11 NRG Serum or plasma creatinine measurement w ith calculation of estimated glomerular filtration rate 49 NRG Serum or plasma glucose measurement (mass/volume) 775 mg/dL 70-105 Serum or plasma calcium measurement (mass/volume) 9.3 mg/dL 8.5-10.1 Complete blood count (CBC) with automate d white blood cell (WBC) differential - 12/10/19 13:47 Blood leukocytes automated count (number/volume) 9.8 10*3/uL 4.3-11.0 Blood erythrocytes automated count (number/volume) 4.66 10*6/uL 4.35-5.85 Venous blood hemoglobin measurement (mass/volume) 13.6 g/dL 11.5-16.0 Blood hematocrit (volume fraction) 39 % 35-52 Automated erythrocyte mean corpuscular volume 84 [ foz_us] 80-99 Automated erythrocyte mean corpuscular h emoglobin (mass per erythrocyte) 29 pg 25-34 Automated erythrocyte mean corpuscular h emoglobin concentration measurement (mass/volume) 35 g/dL 32-36 Automated erythrocyte distribution width ratio 13. 2 % 10.0- 14.5 Automated blood platelet count (count/volume) 250 10*3/uL 130-400 Automated blood platelet mean volume measurement 10.9 [foz_us] 7.4-10.4 Automated blood neutrophils/100 leukocytes 63 % 42-75 Automated blood lymphocytes/100 leukocytes 28 % 12-44 Blood monocytes/100 leukocytes 6 % 0-12 Automated blood eosinophils/100 leukocytes 2 % 0-10 Automated blood basophils/100 leukocytes 0 % 0-10 Blood neutrophils automated count (number/volume) 6.2 10*3 1.8-7.8 Blood lymphocytes automated count (number/volume) 2.8 10*3 1.0-4.0 Blood monocytes automated count (number/volume) 0. 6 10*3 0.0-1.0 Automated eosinophil count 0.2 10*3/uL 0 .0-0.3 Automated blood basophil count (count/volume) 0.0 10*3/uL 0.0-0.1 Erythrocyte sedimentation rate by yenny gren method - 12/10/19 13:47 Erythrocyte sedimentation rate by westergren method 14 mm 0- 20 [id number] - 12/10/19 13:47 Screening antinuclear antibody (MEHRDAD) assay by enzyme i mmunoassay Positive <1:80 Serum nuclear antibody pattern interpretation Spec kled NR Serum nuclear antibody titer < 1:80 [id number] - 12/10/19 13:47 Blood or tissue HLA-B27 detection by flow cytometry Negative [facility] Serum Borrelia species antibody assay (u nits/volume) - 12/10/19 13:47 LYME AB G M 0.07 % 0.00-0.89 Interpretation of Lyme disease antibody assay Nega tive Negative Serum angiotensin converting enzyme (JAMIE ) measurement - 12/10/19 13:47 Serum angiotensin converting enzyme (JAMIE) measurement 53 U/L 9-67 SUREPATH PAP AND HPV mRNA E6/E7 - 10:10 CLINICAL INFORMATION: [facility] LMP: 02-19-2020 NR PREV. PAP: 2000 NR PREV. BX: NR SOURCE: Cervix [facility] STATEMENT OF ADEQUACY: [facility] INTERPRETATION/RESULT: [facility] REHABILITATION COUNSELOR: NR HPV mRNA E6/E7, SUREPATH VIAL Not Detected NOT DETECTED COMMENT [facility] Complete blood count (CBC) with automate d white blood cell (WBC) differential - 04/04/20 00:22 Blood leukocytes automated count (number/volume) 10.3 10*3/uL 4.3-11.0 Blood erythrocytes automated count (number/volume) 4.89 10*6/uL 4.35-5.85 Venous blood hemoglobin measurement (mass/volume) 14.8 g/dL 11.5-16.0 Blood hematocrit (volume fraction) 40 % 35-52 Automated erythrocyte mean corpuscular volume 82 [ foz_us] 80-99 Automated erythrocyte mean corpuscular h emoglobin (mass per erythrocyte) 30 pg 25-34 Automated erythrocyte mean corpuscular h emoglobin concentration measurement (mass/volume) 37 g/dL 32-36 Automated erythrocyte distribution width ratio 12. 7 % 10.0- 14.5 Automated blood platelet count (count/volume) 211 10*3/uL 130-400 Automated blood platelet mean volume measurement 10.3 [foz_us] 7.4-10.4 Automated blood neutrophils/100 leukocytes 56 % 42-75 Automated blood lymphocytes/100 leukocytes 32 % 12-44 Blood monocytes/100 leukocytes 9 % 0-12 Automated blood eosinophils/100 leukocytes 3 % 0-10 Automated blood basophils/100 leukocytes 0 % 0-10 Blood neutrophils automated count (number/volume) 5.8 10*3 1.8-7.8 Blood lymphocytes automated count (number/volume) 3.3 10*3 1.0-4.0 Blood monocytes automated count (number/volume) 0. 9 10*3 0.0-1.0 Automated eosinophil count 0.3 10*3/uL 0 .0-0.3 Automated blood basophil count (count/volume) 0.0 10*3/uL 0.0-0.1 Comprehensive metabolic panel - 04/04/20 00:22 Serum or plasma sodium measurement (moles/volume) 134 mmol/L 135-145 Serum or plasma potassium measurement (moles/volume) 3.5 mmol/L 3.6-5.0 Serum or plasma chloride measurement (moles/volume) 101 mmol/L 98-107 Carbon dioxide 21 mmol/L 21-32 Serum or plasma anion gap determination (moles/volume) 12 mmol/L 5-14 Serum or plasma urea nitrogen measurement (mass/volume ) 9 mg/dL 7-18 Serum or plasma creatinine measurement (mass/volume) 0.87 mg/dL 0.60-1.30 Serum or plasma urea nitrogen/creatinine mass ratio 10 NRG Serum or plasma creatinine measurement w ith calculation of estimated glomerular filtration rate > NRG Serum or plasma glucose measurement (mass/volume) 423 mg/dL 70-105 Serum or plasma calcium measurement (mass/volume) 9.6 mg/dL 8.5-10.1 Serum or plasma total bilirubin measurement (mass/volu me) 0.4 mg/dL 0.1-1.0 Serum or plasma alkaline phosphatase pritesh surement (enzymatic activity/volume) 171 U/L 40-136 Serum or plasma aspartate aminotransfera se measurement (enzymatic activity/volume) 19 U/L 5-34 Serum or plasma alanine aminotransferase measurement (enzymatic activity/volume) 28 U/L 0-55 Serum or plasma protein measurement (mass/volume) 7.0 g/dL 6.4-8.2 Serum or plasma albumin measurement (mass/volume) 4.2 g/dL 3.2-4.5 CALCIUM CORRECTED 9.4 mg/dL 8.5-10.1 Complete urinalysis with reflex to cultu re - 04/04/20 00:22 Urine color determination YELLOW NRG Urine clarity determination CLEAR NR G Urine pH measurement by test strip 6.0 5-9 Specific gravity of urine by test strip <= 1.016-1.022 Urine protein assay by test strip, semi-quantitative NEGATIVE NEGATIVE Urine glucose detection by automated test strip 3+ NEGATIVE Erythrocytes detection in urine sediment by light micr oscopy NEGATIVE NEGATIVE Urine ketones detection by automated test strip 1+ NEGATIVE Urine nitrite detection by test strip NEGATIVE NEGATIVE Urine total bilirubin detection by test strip NEGA TIVE NEGATIVE Urine urobilinogen measurement by automated test strip (mass/volume) 0.2 mg/dL < = 1.0 Urine leukocyte esterase detection by dipstick NEG ATIVE NEGATIVE Automated urine sediment erythrocyte cou nt by microscopy (number/high power field) NONE NRG Automated urine sediment leukocyte count by microscopy (number/high power field) NONE NRG Bacteria detection in urine sediment by light microsco py NEGATIVE NRG Squamous epithelial cells detection in u rine sediment by light microscopy 2-5 NRG Crystals detection in urine sediment by light microsco py NONE NRG Casts detection in urine sediment by light microscopy NONE NRG Mucus detection in urine sediment by light microscopy SMALL NRG Complete urinalysis with reflex to culture NO NRG Serum or plasma choriogonadotropin (preg ronal test) detection - 04/04/20 00:22 Serum or plasma choriogonadotropin ( test) de tection NEGATIVE NEGATIVE Urine drug screening test - 04/04/20 00: 22 Urine phencyclidine detection by screening method NEGATIVE NEGATIVE Urine benzodiazepines detection by screening method NEGATIVE NEGATIVE Urine cocaine detection NEGATIVE NEGATI VE Urine amphetamines detection by screening method N EGATIVE NEGATIVE Urine methamphetamine detection by screening method NEGATIVE NEGATIVE Urine cannabinoids detection by screening method N EGATIVE NEGATIVE Urine opiates detection by screening method NEGATI VE NEGATIVE Urine barbiturates detection NEGATIVE N EGATIVE Screening urine tricyclic antidepressants detection NEGATIVE NEGATIVE Urine methadone detection by screening method NEGA TIVE NEGATIVE Urine oxycodone detection NEGATIVE NEGA TIVE Urine propoxyphene detection NEGATIVE N EGATIVE Serum or plasma thyrotropin measurement by detection limit <=0.05 miu/l (units/volume) - 04/04/20 00:22 Serum or plasma thyrotropin measurement by detection limit <=0.05 miu/l (units/volume) 1.18 u[iU]/mL 0.35-4.94 Serum or plasma salicylates measurement (mass/volume) - 04/04/20 00:22 Serum or plasma salicylates measurement (mass/volume) < mg/dL 5.0-20.0 Serum or plasma acetaminophen measuremen t (mass/volume) - 04/04/20 00:22 Serum or plasma acetaminophen measurement (mass/volume ) < ug/mL 10-30 Serum or plasma ethanol measurement (mas s/volume) - 04/04/20 00:22 Serum or plasma ethanol measurement (mass/volume) < mg/dL <10 Capillary blood glucose measurement by g lucometer (mass/volume) - 04/04/20 00:30 Capillary blood glucose measurement by glucometer (mas s/volume) 409 mg/dL 70-110 Encounters ACCT No. Visit Date/Time Discharge Status Pt. Type Provider Facility Loc./Unit Complaint [id number] 06/21/2017 08:36:00 Document Registration [id number] 03/26/2020 09:00:00 03/26/2020 23:59: 59 CLS Outpatient NEFTALI XIE [facility] [place] [id number] 02/27/2020 09:00:00 Document Registration [id number] 11/18/2017 09:20:00 Document Registration [id number] 06/20/2017 15:00:00 Document Registration [id number] 12/10/2019 13:28:00 020 23:59:59 CLS Outpatient JACLYN GAMINO OD [facility] [address] LAB INFLAMMATORY PA ANDREW [id number] 08/09/2019 11:13:00 23:59:59 CLS Outpatient MENSE BRYAN HANKINS N [facility] [address] LAB TYPE 2 DIABETES [id number] 08/06/2019 08:10:00 23:59:59 CLS Outpatient NEELA ISSA APRN [facility] [address] RT COUGH,DYSPNEA,T OBACCO USER [id number] 07/05/2019 08:17:00 23:59:59 CLS Outpatient NEELA ISSA DOWEL MACHINE OPERATOR [facility] [address] [facility] RAD COUGH,DYSPNEA,A LLERGIC RHINITIS,TOBACCO USER [id number] 03/08/2019 01:15:00 04:30:00 DIS Emergency YESSI GUERRA, IVORY Schwartz [facility] [address] ER SWOLLEN LEFT FOOT [id number] 11/13/2018 01:02:00 05:15:00 DIS Emergency JESUS GUERRA, JOHN Greenberg [facility] [address] ER MIGRAINE [id number] 11/10/2018 11:49:00 23:59:59 CLS Outpatient TINY ALMENDAREZ DOWEL MACHINE OPERATOR [facility] [address] LAB CRAMPS OF LOWER EXTREMITY [id number] 09/05/2018 15:15:00 23:59:59 CLS Preadmit TINY ALMENDAREZ DOWEL MACHINE OPERATOR [facility] [address] DSME TYPE 1 DIABETES [id number] 08/15/2018 19:59:00 23:05:00 DIS Emergency TANYA GONZALEZ DOWEL MACHINE OPERATOR [facility] [address] ER ALLERGIC REACTION TO ME D, 2 WEEKS [id number] 05/03/2018 00:12:00 05:06:00 DIS Emergency DAX GUERRA, DARRICK Fiore [facility] [address] ER PSYCH [id number] 03/12/2018 08:21:00 09:52:00 DIS Emergency BUCKY GUERRA, TWILA Allen [facility] [address] ER COUGH,UNABLE TO PEE [id number] 01/29/2018 06:20:00 04/09/2 018 16:20:00 DIS Inpatient JOHNY GUERRA, INDY Boland [facility] [address] ICU SUICIDAL IDEATION,HYPOKALEMIA,HYPOMAGNESEMIA [id number] 12/27/2017 01:47:00 018 05:59:00 DIS Emergency GAURANG STANTON DO [facility] [address] ER SEVERE ABD PAIN,DIZZY [id number] 12/23/2017 10:31:00 018 23:59:59 CLS Outpatient TINY ALMENDAREZ APRN [facility] [address] LAB E03.9 [id number] 08/08/2017 17:48:00 017 23:59:59 CLS Outpatient OLGA LUCERO MD [facility] [address] RAD ELEVATED PROLACTIC LEVE L E22.9 [id number] 07/29/2017 01:06:00 017 02:20:00 DIS Emergency IVORY DICKSON MD [facility] [address] ER LOWER BACK PAIN [id number] 07/09/2017 17:13:00 017 19:49:00 DIS Emergency IVORY DICKSON MD [facility] [address] ER HIGH BLOOD SUGAR, HEADA ANNE-MARIE [id number] 05/02/2017 23:40:00 017 04:00:00 DIS Emergency JOHN LEE MD [facility] [address] ER EYE PAIN,FEELS LIKE NEEDLES IN EYES [id number] 01/25/2017 00:51:00 017 02:52:00 DIS Emergency FRANCISCO ALAN DO [facility] [address] ER HIGH BLOOD SUGAR 503 [id number] 09/23/2016 14:39:00 016 23:59:59 CLS Outpatient ADAIR LUCERO [facility] [address] [facility] LAB DIABETES,INSULIN DEPEN DENT [id number] 06/04/2016 15:00:00 016 23:59:59 CLS Outpatient OLGA LUCERO MD [facility] [address] [facility] RAD LUMBAR PAIN,R HIP PAIN [id number] 05/25/2016 22:15:00 23:33:00 DIS Emergency ROMY GAURANG CHAPMAN [facility] [address] ER LOWER BACK PAIN [id number] 01/29/2016 11:47:00 23:59:59 CLS Outpatient OLGA LUCERO MD [facility] LAB [id number] 11/17/2015 10:20:00 23:59:59 CLS Outpatient OLGA LUCERO MD [facility] [address] LAB HYPOTHYROID [id number] 11/12/2015 08:59:00 12:00:00 DIS Outpatient TREVIN DALE MD [facility] CHANGE IN BOWEL HABIT [id number] 11/10/2015 05:36:00 23:59:59 CLS Outpatient TREVIN DALE MD [facility] PREOP SCREENING [id number] 11/06/2015 00:09:00 23:59:59 CLS Preadmit OLGA LUCERO MD [facility] [address] LAB DIARRHEA [id number] 08/11/2015 06:00:00 00:01:00 DIS Outpatient OLGA LUCERO MD [facility] LAB DIARRHEA [id number] 10/11/2015 09:54:00 11:56:00 DIS Emergency DARRICK VERDUZCO MD [facility] [address] ER MIGRAINE [id number] 07/28/2015 08:22:00 23:59:59 CLS Outpatient ADAIR LUCERO [facility] LAB DM11 [id number] 07/08/2015 11:07:00 23:59:59 CLS Outpatient OLGA LUCERO MD [facility] RAD PERSISTANT COUGH [id number] 06/12/2015 20:47:00 23:13:00 DIS Emergency ROMY DOGAURANG [facility] [address] [facility] ER BARAJAS [id number] 12/04/2014 18:15:00 015 11:50:00 DIS Inpatient OLGA LUCERO MD [facility] [address] [facility] 4TH SUICIDAL IDEATION;DEPRESSION;SCHIZOPHRENIA;UTI; [id number] 08/23/2014 08:56:00 014 23:59:59 CLS Outpatient ADAIR LUCERO [facility] LAB DIABETES-INSULIN DEPEN DANT [id number] 07/14/2014 02:29:00 014 04:00:00 DIS Emergency DAX GUERRA, DARRICK D [facility] ER MIGRAINE [id number] 06/19/2014 21:16:00 22:49:00 DIS Emergency TANYA GONZALEZ APRN [facility] [address] ER HEADACHE [id number] 05/23/2014 12:03:00 23:59:59 CLS Outpatient ADAIR LUCERO [facility] LAB DIABETES [id number] 05/02/2014 06:12:00 014 15:55:00 DIS Outpatient ESAU BERRY DO [facility] SDC CHRONIC CHOLECYSTITIS [id number] 04/30/2014 08:30:00 014 23:59:59 CLS Outpatient BERRY ESAU CHAPMAN [facility] PREOP CHRONIC CHOLECYSTITIS [id number] 04/09/2014 09:46:00 014 23:59:59 CLS Outpatient OLGA LUCERO MD [facility] CARD RUQ PAIN [id number] 04/03/2014 11:17:00 014 23:59:59 CLS Outpatient OLGA LUCERO MD [facility] RAD RUQ PAIN [id number] 02/28/2014 11:50:00 014 23:59:59 CLS Outpatient ADAIR LUCERO [facility] LAB DIABETES [id number] 02/06/2014 15:47:00 18:50:00 DIS Inpatient OLGA LUCERO MD [facility] [address] 4TH HEMADEMESIS, TM [id number] 02/04/2014 23:07:00 00:24:00 DIS Emergency MILLICENT BHATTI MD [facility] ER MIGRAINE [id number] 01/11/2014 10:23:00 23:59:59 CLS Outpatient ADAIR LUCERO [facility] LAB DIABETES [id number] 11/27/2013 10:06:00 23:59:59 CLS Outpatient AFUA FINLEY [facility] LAB MEDICATION-HIGH RISK [id number] 11/17/2013 11:06:00 15:25:00 DIS Emergency GAURANG STANTON DO [facility] [address] ER DEPRESSION SUICIDAL THO UGHTS [id number] 09/06/2013 21:08:00 00:18:00 DIS Emergency DARRICK VERDUZCO MD [facility] [address] ER ELEVATED BLOOD SUGAR [id number] 09/06/2013 13:55:00 23:59:59 CLS Outpatient OLGA LUCERO MD [facility] RAD PAIN W/WALKING [id number] 08/07/2013 13:32:00 23:59:59 CLS Outpatient OLGA LUCERO MD [facility] RAD L Q PAIN [id number] 08/06/2013 15:36:00 23:59:59 CLS Outpatient OLGA LUCERO MD [facility] [address] LAB L Q PAIN [id number] 05/18/2013 16:42:00 22:49:00 DIS Emergency SERGIO GERARD [facility] [address] ER SUICIDIAL IDEATION [id number] 04/04/2020 00:39:00 Document Registration [id number] 01/29/2016 11:45:00 Document Registration [id number] 02/10/2013 06:25:00 Document Registration [id number] 02/08/2013 11:58:00 Document Registration [id number] 11/08/2012 13:41:00 Document Registration [id number] 08/02/2012 14:50:00 Document Registration [id number] 02/08/2012 22:00:00 Document Registration [id number] 12/27/2011 13:01:00 Document Registration [id number] 12/15/2011 12:51:00 Document Registration [id number] 09/07/2011 22:42:00 Document Registration [id number] 03/19/2011 20:21:00 Document Registration [id number] 02/11/2011 15:16:00 Document Registration [id number] 12/11/2010 13:19:00 Document Registration [id number] 12/10/2010 13:05:00 Document Registration [id number] 11/07/2010 21:58:00 Document Registration [id number] 11/01/2010 22:32:00 Document Registration [id number] 02/19/2015 10:39:00 02/19/2015 23:59: 59 CLS Outpatient LILA DOWEL MACHINE OPERATOR, BRYAN [id number] 01/15/2015 15:46:00 01/15/2015 23:59: 59 CLS Outpatient LILA DOWEL MACHINE OPERATOR, BRYAN [id number] 12/31/2014 09:36:00 12/31/2014 23:59: 59 CLS Outpatient LILA DOWEL MACHINE OPERATOR, BRYAN [id number] 11/21/2014 14:43:00 11/21/2014 23:59: 59 CLS Outpatient LILA DOWEL MACHINE OPERATOR, BRYAN [id number] 11/07/2014 15:40:00 11/07/2014 23:59: 59 CLS Outpatient LILA DOWEL MACHINE OPERATOR, BRYAN [id number] 10/09/2014 15:00:00 10/09/2014 23:59: 59 CLS Outpatient ALVARO VYAS DO [id number] 09/06/2014 15:25:00 09/06/2014 23:59: 59 CLS Outpatient ALVARO VYAS DO [id number] 08/16/2014 15:48:00 08/16/2014 23:59: 59 CLS Outpatient LILA DOWEL MACHINE OPERATOR, BRYAN [id number] 08/07/2014 14:18:00 08/07/2014 23:59: 59 CLS Outpatient LILA DOWEL MACHINE OPERATOR, BRYAN [id number] 07/19/2014 09:53:00 07/19/2014 23:59: 59 CLS Outpatient LILA DOWEL MACHINE OPERATOR, BRYAN [id number] 07/09/2014 15:39:00 07/09/2014 23:59: 59 CLS Outpatient LILA DOWEL MACHINE OPERATOR, BRYAN [id number] 06/18/2014 16:04:00 06/18/2014 23:59: 59 CLS Outpatient LILA DOWEL MACHINE OPERATOR, BRYAN [id number] 06/05/2014 15:45:00 06/05/2014 23:59: 59 CLS Outpatient VYAS DOALVARO [id number] 05/16/2014 16:35:00 05/16/2014 23:59: 59 CLS Outpatient LILA DOWEL MACHINE OPERATOR, BRYAN [id number] 05/07/2014 11:39:00 05/07/2014 23:59: 59 CLS Outpatient LILA DOWEL MACHINE OPERATOR, BRYAN [id number] 04/18/2014 14:58:00 04/18/2014 23:59: 59 CLS Outpatient LILA DOWEL MACHINE OPERATOR, BRYAN [id number] 04/05/2014 10:34:00 04/05/2014 23:59: 59 CLS Outpatient ALVARO VYAS DO [id number] 2014 14:23:00 2014 23:59: 59 CLS Outpatient LILA DOWEL MACHINE OPERATOR, BRYAN [id number] 2014 14:23:00 2014 23:59: 59 CLS Outpatient LILA DOWEL MACHINE OPERATOR, BRYAN [id number] 03/11/2014 12:20:00 03/11/2014 23:59: 59 CLS Outpatient FINLEY DOWEL MACHINE OPERATOR, AFUA BOSWELL [id number] 02/08/2014 08:25:00 02/08/2014 23:59: 59 CLS Outpatient FINLEY 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 [id number] 01/10/2014 10:55:00 01/10/2014 23:59: 59 CLS Outpatient FINLEY DOWEL MACHINE OPERATOR, AFUA BOSWELL [id number] 12/10/2013 17:22:00 12/10/2013 23:59: 59 CLS Outpatient FINLEY 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 [id number] 09/25/2013 13:29:00 09/25/2013 23:59: 59 CLS Outpatient FINLEY 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 [id number] 09/03/2013 16:40:00 09/03/2013 23:59: 59 CLS Outpatient FINLEY 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 [id number] 08/20/2013 13:43:00 08/20/2013 23:59: 59 CLS Outpatient FINLEY 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 [id number] 07/18/2013 08:54:00 07/18/2013 23:59: 59 CLS Outpatient FINLEY 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 [id number] 07/12/2013 16:28:00 07/12/2013 23:59: 59 CLS Outpatient FINLEY 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 [id number] 01/19/2013 15:27:00 01/19/2013 23:59: 59 CLS Outpatient FINLEY 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 [id number] 01/16/2013 13:38:00 01/16/2013 23:59: 59 CLS Outpatient [id number] 12/29/2012 09:32:00 12/29/2012 23:59: 59 CLS Outpatient FINLEY 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 [id number] 12/13/2012 14:41:00 12/13/2012 23:59: 59 CLS Outpatient [id number] 11/20/2012 10:07:00 11/20/2012 23:59: 59 CLS Outpatient FINLEY 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 [id number] 09/11/2012 09:21:00 09/11/2012 23:59: 59 CLS Outpatient FINLEY 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 [id number] 06/22/2013 15:42:00 Document Registration [id number] 06/15/2013 06:58:00 Document Registration [id number] 04/10/2013 10:26:00 Document Registration [id number] 03/12/2013 11:15:00 Document Registration [id number] 02/26/2013 13:42:00 Document Registration [id number] 02/09/2013 16:13:00 Document Registration [id number] 02/05/2013 07:59:00 Document Registration
[2020-04-04] MEDS: NS W/KCL 20 MEQ/L 1,000 ML IV SCH ×2 (02:44→09:29)
[2020-04-04] MEDS ORDERED: NS W/KCL 20 MEQ/L 1,000 ML IV ONE (02:44)
--- NOTE | 2020-04-04 03:00 | NUR ---
Unable to get [employer] to work (tried to of them and the other two are in use). Multiple calls to [place] to speak with video monitoring. Pt resting quietly and does not pose a risk to self or others, and denies hallucinations or urge to harm self at this time. Addendum: 04/04/20 at 0751 by KAREN PEREZ RN "tried two of them"
[2020-04-04] MEDS: inSUlin ASPART (NovoLOG) 1 UNIT/0.01 ML (CHARGE PER UNIT) SC SCH ×2 (06:41→12:02)
[2020-04-04 07:14] LABS: BASOPHILS % (AUTO) 0 % (0-10); EOSINOPHILS # (AUTO) 0.4 10^3/uL (0.0-0.3); EOSINOPHILS % (AUTO) 4 % (0-10); HEMATOCRIT 38 % (35-52); HEMOGLOBIN 13.5 G/DL (11.5-16.0); LYMPHOCYTES # (AUTO) 3.3 X 10^3 (1.0-4.0); LYMPHOCYTES % (AUTO) 38 % (12-44); MEAN CORPUSCULAR HEMOGLOBIN 29 PG (25-34); MEAN CORPUSCULAR HGB CONC 35 G/DL (32-36); MEAN CORPUSCULAR VOLUME 83 FL (80-99); MEAN PLATELET VOLUME 10.3 FL (7.4-10.4); MONOCYTES % (AUTO) 11 % (0-12); NEUTROPHILS # (AUTO) 4.1 X 10^3 (1.8-7.8); NEUTROPHILS % (AUTO) 47 % (42-75); PLATELET COUNT 203 10^3/uL (130-400); RED CELL DISTRIBUTION WIDTH 12.8 % (10.0-14.5); WHITE BLOOD COUNT 8.7 10^3/uL (4.3-11.0)
[2020-04-04 07:25] LABS: ALBUMIN 3.3 GM/DL (3.2-4.5)
[2020-04-04 07:26] LABS: CHLORIDE 109 MMOL/L (98-107); POTASSIUM 3.4 MMOL/L (3.6-5.0); SODIUM 138 MMOL/L (135-145)
[2020-04-04 07:28] LABS: GLUCOSE 253 MG/DL (70-105); TOTAL PROTEIN 5.5 GM/DL (6.4-8.2)
[2020-04-04 07:29] LABS: CARBON DIOXIDE 20 MMOL/L (21-32)
[2020-04-04 07:30] LABS: BILIRUBIN,TOTAL 0.4 MG/DL (0.1-1.0)
[2020-04-04 07:31] LABS: ALKALINE PHOSPHATASE 131 U/L (40-136)
[2020-04-04 07:32] LABS: CREATININE SERUM 0.65 MG/DL (0.60-1.30); GFR ESTIMATED > 60
[2020-04-04 07:33] LABS: BUN/CREATININE RATIO 14
[2020-04-04 07:34] LABS: ALANINE AMINOTRANSFERASE 23 U/L (0-55)
[2020-04-04 08:12] VITALS: BP 118/79
--- NOTE | 2020-04-04 09:49 | NUR ---
DISCHARGE PLANNING: Dr. Gil would like for patient to be dismissed to inpatient psych today if bed can be found. Visited with patient et she is willing to be admitted to inpatient psych for her verbalizations of suicidal ideations with visual hallucinations. Contacted [facility] et they will likely have bed availability later today pending any ER admission need. Faxed referral to them et they are reviewing. Contacted [facility] et they report likely bed availability later this afternoon as well et would like me to call them back at noon. Contacted secure transport, Laverne Flynn et they are on standby to aid in transporting patient pending acceptance.
--- NOTE | 2020-04-04 11:17 | NUR ---
RD ASSESSMENT PMHx: hypercholesterolemia; chronic-UTI; GERD; DM; hypothyroidism; multiple psych issues PT INTERACTION: Pt was awake and pleasant during nutrition assessment. Note pt has AMS, per chart review. Pt states current appetite is okay. Note avg PO intake 75% x1meal, per chart review. Pt states following regular diet at home, and has no issues with chewing/swallowing food. Pt states no recent issues with nausea, vomiting, or constipation. Pt states some recent issues with diarrhea, and that her last BM was 04/02. Note pt not currently on bowel regimen per chart review. Pt states no recent wt changes. Note unable to determine recent wt hx, per chart review. Pt states current DM management is poor. "I'm going to talk to an knitting machine operator in April about it." Note unable to determine recent HbA1c, per chart review. ABNORMAL NUTRITION-RELATED LAB VALUES LOW: K 3.4; Ca 8.0; Pro 5.5 HIGH: Cl 109; glu 253 Est. kcal needs: 4524-0732 kcal | 15-18 kcal/kg Est. Pro needs: 68-85 g Pro | 0.8-1.0 g Pro/kg PES STATEMENT: Inadequate oral intake (NI-2.1) related to loss of appetite | diarrhea as evidenced by pt interview INTERVENTION: Continue with current diet order of CHO 45g/m 1snack diet. Offered diet education on DM management. Pt declined, "I'm meeting with an knitting machine operator in April." Will attempt to offer again prior to discharge. Will continue to follow and reassess as pt needs, intake, and status change. MONITOR/EVALUATE: PO Intake; Plan of Care; Hydration Status; Weight Status; Lab Values Willie Taylor, MS, RD, LD
[2020-04-04 11:35] VITALS: BP 139/76
--- NOTE | 2020-04-04 12:07 | NUR ---
FINALIZED DISCHARGE PLAN: Patient has been accepted to [facility] for inpatient psych treatment. Secure transport has been contacted. Primary care doctor working on dismissal orders in [facility] now. No further interventions noted. Addendum: 04/04/20 at 1212 by FRAN ORDOÑEZ RN Transport will be here to picked edge sewing machine operator the patient at around 3:45p.m. updated patient et primary care nurse.
[2020-04-04 15:12] VITALS: BP 136/88
[2020-04-04 16:05] VITALS: BP 136/88
--- NOTE | 2020-04-04 22:56 | Short Stay Summary ---
HPI History of Present Illness: 40 yo F that presented to ER because she states that she wanted to hurt herself. She has been having more hallucinations recently and is getting very worried. States that her last inpatient psych stay was in October but that she has had her medications adjusted within the last month. Denies any other concerns. States that she stopped taking her insulin on Tuesday because she wanted to hurt herself. She stated that she wanted to cut her wrists. Source: patient Exam Limitations: clinical condition Date seen by provider: Apr 04, 2020 Time Seen by Provider: 08:15 Attending Physician Sayda Gil MD PCP Center/[facility] Consult Date of Admission Apr 04, 2020 at 01:30 Home Medications Home Medications Reviewed patient Home Medication Reconciliation performed by pharmacy medication reconciliations catheterization laboratory technician and/or nursing. Patients Allergies have been reviewed. Allergies Coded Allergies: amoxicillin (Unverified Allergy, Severe, sob, rash, 11/01/10) Penicillins (Verified Adverse Reaction, Severe, RASH, 12/14/05) cefuroxime (Verified Adverse Reaction, Severe, RASH, 12/14/05) clarithromycin (Unverified Adverse Reaction, Mild, nausea and dizziness, 02/07/14) KXH-Nidopx-Hqvvmo Hx Patient Social History Alcohol Use: Rarely Uses Recreational Drug Use: No Smoking Status: Current Everyday Smoker (1 PPD) Type Used: Cigarettes 2nd Hand Smoke Exposure: Yes Recent Foreign Travel: No Contact w/other who traveled: No Recent Hopitalizations: No Recent Infectious Disease Expo: No Immunizations Up To Date Tetanus Booster (TDap): Less than 5yrs Date of Pneumonia Vaccine: Oct 24, 2010 Date of Influenza Vaccine: Aug 30, 2015 Past Medical History Schizophrena Depression IDDM Hypothyroidism Family Medical History Significant Family History: No Pertinent Family Hx Family History: Family history: Allergy 03 MOTHER 09 BROTHER Family history: Arthritis 03 MOTHER Family history: Asthma 09 BROTHER 09 SISTER Family history: Cardiovascular disease 03 FATHER ("TAKES MEDICATION FOR HIS HEART") Family history: Diabetes mellitus 03 FATHER Family history: Hypertension 03 MOTHER Hypercholesterolemia 03 MOTHER Psychosocial problem 09 SISTER (DEPRESSION) Psychotic disorder 09 SISTER (ANXIETY) No Family History of: Abdominal aortic aneurysm Jericho's disease Alcoholism Aphasia Cancer Cancer of colon Cataract Chest pain Congenital heart disease Congestive heart failure Cystic fibrosis Dementia Dysphagia Family history: Alzheimer's disease Family history: Breast disease Family history: Coronary thrombosis Family history: Gastrointestinal disease Family history: Glaucoma Family history: Osteoporosis Family history: Thyroid disorder Headache Hearing loss Heart disease Hereditary disease History of - anemia History of - disorder History of - respiratory disease History of drug abuse Human immunodeficiency virus (HIV) seropositivity Infertile Kidney disease Malignant neoplasm of lung Myocardial infarction Parkinson's disease Prostate cancer Seizure disorder Stroke Tuberculosis Visual impairment Review of Systems (CHC) Constitutional: no symptoms reported; No chills, No fever EENTM: No mouth pain, No nose congestion, No nose pain Respiratory: no symptoms reported; No dyspnea on exertion, No orthopnea, No short of breath Cardiovascular: no symptoms reported; No chest pain, No palpitations Gastrointestinal: no symptoms reported; No abdominal pain, No constipation, No diarrhea, No nausea, No vomiting Genitourinary: no symptoms reported; No dysuria, No frequency, No hematuria : No Musculoskeletal: no symptoms reported; No back pain, No joint pain, No muscle pain Skin: no symptoms reported; No lesions, No rash Psychiatric/Neurological: Depressed, Headache Reviewed Test Results Reviewed Test Results Lab Laboratory Tests Test 04/04/20 00:22 04/04/20 00:30 04/04/20 02:07 04/04/20 05:22 Range/Units White Blood Count 10.3 4.3-11.0 10^3/uL Red Blood Count 4.89 4.35-5.85 10^6/uL Hemoglobin 14.8 11.5-16.0 G/DL Hematocrit 40 35-52 % Mean Corpuscular Volume 82 80-99 FL Mean Corpuscular Hemoglobin 30 25-34 PG Mean Corpuscular Hemoglobin Concent 37 H 32-36 G/DL Red Cell Distribution Width 12.7 10.0-14.5 % Platelet Count 211 130-400 10^3/uL Mean Platelet Volume 10.3 7.4-10.4 FL Neutrophils (%) (Auto) 56 42-75 % Lymphocytes (%) (Auto) 32 12-44 % Monocytes (%) (Auto) 9 0-12 % Eosinophils (%) (Auto) 3 0-10 % Basophils (%) (Auto) 0 0-10 % Neutrophils # (Auto) 5.8 1.8-7.8 X 10^3 Lymphocytes # (Auto) 3.3 1.0-4.0 X 10^3 Monocytes # (Auto) 0.9 0.0-1.0 X 10^3 Eosinophils # (Auto) 0.3 0.0-0.3 10^3/uL Basophils # (Auto) 0.0 0.0-0.1 10^3/uL Urine Color YELLOW Urine Clarity CLEAR Urine pH 6.0 5-9 Urine Specific [place] <=1.005 1.016-1.022 Urine Protein NEGATIVE NEGATIVE Urine Glucose (UA) 3+ H NEGATIVE Urine Ketones 1+ H NEGATIVE Urine Nitrite NEGATIVE NEGATIVE Urine Bilirubin NEGATIVE NEGATIVE Urine Urobilinogen 0.2 < = 1.0 MG/DL Urine Leukocyte Esterase NEGATIVE NEGATIVE Urine RBC (Auto) NEGATIVE NEGATIVE Urine RBC NONE /HPF Urine WBC NONE /HPF Urine Squamous Epithelial Cells 2-5 /HPF Urine Crystals NONE /LPF Urine Bacteria NEGATIVE /HPF Urine Casts NONE /LPF Urine Mucus SMALL H /LPF Urine Culture Indicated NO Sodium Level 134 L 135-145 MMOL/L Potassium Level 3.5 L 3.6-5.0 MMOL/L Chloride Level 101 98-107 MMOL/L Carbon Dioxide Level 21 21-32 MMOL/L Anion Gap 12 5-14 MMOL/L Blood Urea Nitrogen 9 7-18 MG/DL Creatinine 0.87 0.60-1.30 MG/DL Estimat Glomerular Filtration Rate > 60 BUN/Creatinine Ratio 10 Glucose Level 423 *H 70-105 MG/DL Calcium Level 9.6 8.5-10.1 MG/DL Corrected Calcium 9.4 8.5-10.1 MG/DL Total Bilirubin 0.4 0.1-1.0 MG/DL Aspartate Amino Transf (AST/SGOT) 19 5-34 U/L Alanine Aminotransferase (ALT/SGPT) 28 0-55 U/L Alkaline Phosphatase 171 H 40-136 U/L Total Protein 7.0 6.4-8.2 GM/DL Albumin 4.2 3.2-4.5 GM/DL TSH [place] Testing 1.18 0.35-4.94 UIU/ML Serum Test, Qualitative NEGATIVE NEGATIVE Salicylates Level < 5.0 L 5.0-20.0 MG/DL Urine Opiates Screen NEGATIVE NEGATIVE Urine Oxycodone Screen NEGATIVE NEGATIVE Urine Methadone Screen NEGATIVE NEGATIVE Urine Propoxyphene Screen NEGATIVE NEGATIVE Acetaminophen Level < 10 L 10-30 UG/ML Urine Barbiturates Screen NEGATIVE NEGATIVE Ur Tricyclic Antidepressants Screen NEGATIVE NEGATIVE Urine Phencyclidine Screen NEGATIVE NEGATIVE Urine Amphetamines Screen NEGATIVE NEGATIVE Urine Methamphetamines Screen NEGATIVE NEGATIVE Urine Benzodiazepines Screen NEGATIVE NEGATIVE Urine Cocaine Screen NEGATIVE NEGATIVE Urine Cannabinoids Screen NEGATIVE NEGATIVE Serum Alcohol < 10 <10 MG/DL Glucometer 409 *H 287 H 247 H 70-110 MG/DL Test 04/04/20 06:54 04/04/20 11:01 04/04/20 15:13 Range/Units White Blood Count 8.7 4.3-11.0 10^3/uL Red Blood Count 4.59 4.35-5.85 10^6/uL Hemoglobin 13.5 11.5-16.0 G/DL Hematocrit 38 35-52 % Mean Corpuscular Volume 83 80-99 FL Mean Corpuscular Hemoglobin 29 25-34 PG Mean Corpuscular Hemoglobin Concent 35 32-36 G/DL Red Cell Distribution Width 12.8 10.0-14.5 % Platelet Count 203 130-400 10^3/uL Mean Platelet Volume 10.3 7.4-10.4 FL Neutrophils (%) (Auto) 47 42-75 % Lymphocytes (%) (Auto) 38 12-44 % Monocytes (%) (Auto) 11 0-12 % Eosinophils (%) (Auto) 4 0-10 % Basophils (%) (Auto) 0 0-10 % Neutrophils # (Auto) 4.1 1.8-7.8 X 10^3 Lymphocytes # (Auto) 3.3 1.0-4.0 X 10^3 Monocytes # (Auto) 1.0 0.0-1.0 X 10^3 Eosinophils # (Auto) 0.4 H 0.0-0.3 10^3/uL Basophils # (Auto) 0.0 0.0-0.1 10^3/uL Sodium Level 138 135-145 MMOL/L Potassium Level 3.4 L 3.6-5.0 MMOL/L Chloride Level 109 H 98-107 MMOL/L Carbon Dioxide Level 20 L 21-32 MMOL/L Anion Gap 9 5-14 MMOL/L Blood Urea Nitrogen 9 7-18 MG/DL Creatinine 0.65 0.60-1.30 MG/DL Estimat Glomerular Filtration Rate > 60 BUN/Creatinine Ratio 14 Glucose Level 253 H 70-105 MG/DL Calcium Level 8.0 L 8.5-10.1 MG/DL Corrected Calcium 8.6 8.5-10.1 MG/DL Total Bilirubin 0.4 0.1-1.0 MG/DL Aspartate Amino Transf (AST/SGOT) 20 5-34 U/L Alanine Aminotransferase (ALT/SGPT) 23 0-55 U/L Alkaline Phosphatase 131 40-136 U/L Total Protein 5.5 L 6.4-8.2 GM/DL Albumin 3.3 3.2-4.5 GM/DL Glucometer 327 H 284 H 70-110 MG/DL Physical Exam-(CHC) Physical Exam Vital Signs VS - Last 72 Hours, by Label 04/04/20 04/04/20 04/04/20 04/04/20 00:08 02:08 02:15 02:15 Temp 36.8 36.7 36.8 36.8 Pulse 97 84 85 85 Resp 20 16 18 18 B/P (MAP) 163/101 (121) 133/87 (121) 128/85 (99) 128/85 Pulse Ox 97 99 98 98 O2 Delivery Room Air Room Air Room Air Room Air 04/04/20 04/04/20 04/04/20 04/04/20 02:15 08:03 08:12 11:35 Temp 36.6 36.1 Pulse 76 79 Resp 18 18 B/P (MAP) 118/79 (92) 139/76 (97) Pulse Ox 98 97 97 99 O2 Delivery Room Air Room Air Room Air Room Air 04/04/20 04/04/20 15:12 16:05 Temp 36.5 36.5 Pulse 82 82 Resp 16 16 B/P (MAP) 136/88 (104) 136/88 Pulse Ox 97 97 O2 Delivery Room Air Room Air Capillary Refill : Less Than 3 Seconds General Appearance: WD/WN, no apparent distress Neck: non-tender, full range of motion, supple Respiratory: chest non-tender, lungs clear, normal breath sounds, no respiratory distress, no accessory muscle use Cardiovascular: normal peripheral pulses, regular rate, rhythm, no edema, no murmur Gastrointestinal: normal bowel sounds, non tender, soft Back: no CVA tenderness, no vertebral tenderness Extremities: no pedal edema, no calf tenderness, normal capillary refill Neurologic/Psychiatric: 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 as tested, no motor/sensory deficits, alert, oriented x 3, depressed affect Skin: normal color, warm/dry Lymphatic: no adenopathy Short Stay Diagnosis Discharge Diagnosis-Short Stay Admission Diagnosis Schizophrenia IDDM Suicidal Ideation Final Discharge Diagnosis See Above Conclusion Plan See Problem List Was the Problem List Reviewed?: Yes Clinical Quality Measures DVT/VTE Risk/Contraindication: Risk Factor Score Per Nursin RFS Level Per Nursing on Admit: 1=Low/No VTE PPX Assessment/Plan Assessment/Plan Admission Status: Observation (1) Uncontrolled diabetes mellitus Status: Chronic Assessment & Plan: - Will restart patient's insulin since she has been off her medications Qualifiers: Qualified Codes: E11.65 - Type 2 diabetes mellitus with hyperglycemia (2) Schizophrenia Status: Chronic Assessment & Plan: - Patient asking for inpatient placement, SW consult to help with bed availability Qualifiers: Qualified Codes: F20.9 - Schizophrenia, unspecified (3) SUICIDAL IDEATION Status: Acute SAYDA GIL MD Apr 04, 2020 22:56
== END 2020-04-04 16:05 | disposition designated cancer center or children's hospital (05) ==
LOC: EDUNIT# 23:51 → ER 23:53 → 4TH 04-04 01:30
PROVIDERS: ADMIT Family Medicine; ATTEND Family Medicine
DX: E11.65 Type 2 diabetes mellitus with hyperglycemia (principal); E78.00 Pure hypercholesterolemia, unspecified; G43.909 Migraine, unspecified, not intractable, without status migrainosus; N39.0 Urinary tract infection, site not specified; K21.9 Gastro-esophageal reflux disease without esophagitis; E11.9 Type 2 diabetes mellitus without complications; E03.9 Hypothyroidism, unspecified; F31.9 Bipolar disorder, unspecified; F41.9 Anxiety disorder, unspecified; F20.9 Schizophrenia, unspecified; F17.210 Nicotine dependence, cigarettes, uncomplicated; Z88.2 Allergy status to sulfonamides; Z88.1 Allergy status to other antibiotic agents; Z79.4 Long term (current) use of insulin; Z79.899 Other long term (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; Z90.89 Acquired absence of other organs; Z82.61 Family history of arthritis; Z82.49 Family history of ischemic heart disease and other diseases of the circulatory system; Z83.6 Family history of other diseases of the respiratory system
CPT/HCPCS: 80053; 80306; 81000; 82962; 84443; 84703; 85025; 93005; 99284; G0480 ×3; 36415; 80320; 80329; G0378

== ENCOUNTER 2020-09-15 16:52 | Emergency (ER) | payer MEDICARE, MEDICAID ==
[~2020-09-15] VITALS: Ht 167.7 cm; Wt 82.6 kg
[~2020-09-15 16:52] MED LIST changes: +ATOM40CA6; +PALI6TAB6; +PANT40TA52; +PRAZ1CAP2
[2020-09-15 17:25] LABS: BASOPHILS # (AUTO) 0.1 10^3/uL (0.0-0.1); BASOPHILS % (AUTO) 1 % (0-10); EOSINOPHILS # (AUTO) 0.2 10^3/uL (0.0-0.3); EOSINOPHILS % (AUTO) 2 % (0-10); HEMATOCRIT 47 % (35-52); LYMPHOCYTES # (AUTO) 3.2 10^3/uL (1.0-4.0); LYMPHOCYTES % (AUTO) 31 % (12-44); MEAN CORPUSCULAR HEMOGLOBIN 28 pg (25-34); MEAN CORPUSCULAR HGB CONC 34 g/dL (32-36); MEAN CORPUSCULAR VOLUME 83 fL (80-99); MEAN PLATELET VOLUME 10.5 fL (9.0-12.2); MONOCYTES # (AUTO) 0.7 10^3/uL (0.0-1.0); MONOCYTES % (AUTO) 6 % (0-12); NEUTROPHILS # (AUTO) 6.3 10^3/uL (1.8-7.8); NEUTROPHILS % (AUTO) 60 % (42-75); PLATELET COUNT 289 10^3/uL (130-400); WHITE BLOOD COUNT 10.5 10^3/uL (4.3-11.0)
[2020-09-15 17:35] LABS: ALBUMIN 4.6 GM/DL (3.2-4.5); CHLORIDE 100 MMOL/L (98-107); POTASSIUM 3.8 MMOL/L (3.6-5.0); SODIUM 135 MMOL/L (135-145)
[2020-09-15 17:36] LABS: CALCIUM 9.2 MG/DL (8.5-10.1)
[2020-09-15 17:38] LABS: GLUCOSE 392 MG/DL (70-105); TOTAL PROTEIN 7.6 GM/DL (6.4-8.2)
[2020-09-15 17:39] LABS: BILIRUBIN,TOTAL 0.7 MG/DL (0.1-1.0); CARBON DIOXIDE 13 MMOL/L (21-32)
[2020-09-15 17:41] LABS: ALKALINE PHOSPHATASE 158 U/L (40-136); CREATININE SERUM 1.16 MG/DL (0.60-1.30); GFR ESTIMATED 52
[2020-09-15 17:42] LABS: BUN/CREATININE RATIO 9
[2020-09-15 17:44] LABS: ALANINE AMINOTRANSFERASE 27 U/L (0-55)
[2020-09-15] MEDS ORDERED: NS IV 1000 ML 1,000 ML IV SCH ×2 (17:45→19:45)
[2020-09-15 17:56] LABS: EOSINOPHILS % (MANUAL) 2 %; LYMPHOCYTES % (MANUAL) 29 %; MONOCYTES % (MANUAL) 6 %; NEUTROPHILS % (MANUAL) 63 %; RBC MORPH NORMAL
[2020-09-15 18:07] LABS: ABG BASE EXCESS -12.8 MMOL/L (-2.5-2.5); ABG OXYGEN SATURATION 98 % (94-100); ABG PCO2 25 MMHG (35-45); ABG PO2 93 MMHG (79-93); ABG TCO2 13.3 MMOL/L (21.0-31.0)
[2020-09-15 18:09] LABS: ABG PH 7.31 (7.37-7.43)
[2020-09-15 18:10] LABS: ALLENS TEST POSITIVE; INSPIRED O2 98%; PATIENT TEMP 35.4; VENTILATOR NO
--- NOTE | 2020-09-15 18:26 | NUR ---
Report was given to KATLIN Maria at this time. Care was transferred.
[2020-09-15] MEDS ORDERED: inSUlin (REGULAR) HUMAN 1 UNIT/0.01 ML (CHARGE PER UNIT) IV ONE (18:30)
[2020-09-15 18:47] LABS: CLARITY,URINE CLEAR; COLOR,URINE YELLOW; GLUCOSE, URINE (UA) 3+ (NEGATIVE); KETONES,URINE 3+ (NEGATIVE); LEUKOCYTE ESTERASE ,URINE NEGATIVE (NEGATIVE); NITRITE,URINE NEGATIVE (NEGATIVE); PROTEIN,URINE NEGATIVE (NEGATIVE)
[2020-09-15 18:55] LABS: AMORPHOUS SEDIMENT,UR FEW AMOR URATES /LPF; BACTERIA,URINE NEGATIVE /HPF
[2020-09-15 18:56] LABS: BILIRUBIN,URINE 1+ (NEGATIVE)
--- NOTE | 2020-09-15 19:00 | NUR ---
Recieved report from KATLIN Maria to assume care of pt at this time.
--- NOTE | 2020-09-15 19:40 | ED General ---
General Chief Complaint: Glucose Problems Stated Complaint: DKA Nursing Triage Note: Pt arrived by private vehicle with chief complaint of DKA/ hyperglycemia. Pt was sent over from [facility] due to ketones in urine and blood sugar being to high to read. Pt was alert, oriented x 4 and ambulatory at arrival. Pt ambulated to room 3. Pt stated she has been vomiting since the and is having stomach/abdominal pain from puking. Pt stated the vomiting got worse last night. Pt stated she has a headache, has been weak and ahs been having chest pain. Crystal from [facility] called prior to arrival to give report and stated patient is probably in DKA due to hyperglycemia and ketones in her urine. Pt is tachycardic on arrival. Pt's vital signs were taken, IV (20 gauge) started in left AC and blood sugar was taken. pt ambulated to bathroom to obtain urine. Nursing Sepsis Screen: No Definite Risk History of Present Illness Date Seen by Provider: Sep 15, 2020 Time Seen by Provider: 17:50 Initial Comments This is a 40-year-old female who presents to the ER with complaints of hyperglycemia, states she was sent over from [facility] due to ketones in her urine and blood sugar being too high to read. States she normally takes NovoLog 27 units with meals, but ran out yesterday morning with breakfast. Additionally, she reports abdominal pain, vague chest pain, nausea, vomiting 1 week. Describes chest pain as intermittent ache, with occasional sharp stabbing pain with inspiration. Denies any significant cardiac history. Denies fevers, chills, rashes, cough, shortness of breath, dysuria, or frequency. Allergies and Home Medications Allergies Coded Allergies: amoxicillin (Unverified Allergy, Severe, sob, rash, 11/01/10) Penicillins (Verified Adverse Reaction, Severe, RASH, 12/14/05) cefuroxime (Verified Adverse Reaction, Severe, RASH, 12/14/05) clarithromycin (Unverified Adverse Reaction, Mild, nausea and dizziness, 02/07/14) Home Medications Albuterol Sulfate 18 Gm Hfa.aer.ad, 2 PUFF IH Q6H PRN for SHORTNESS OF BREATH, (Reported) Aripiprazole 2 Mg Tablet, 2 MG PO DAILY, (Reported) Guanfacine HCl 1 Mg Tab.er.24h, 1 MG PO HS, (Reported) Insulin Aspart 300 Units/3 Ml Solution, 25 UNITS SQ AC, (Reported) Insulin Detemir 100 Unit/1 Ml Insuln.pen, 67 UNITS SQ HS, (Reported) Lorazepam 1 Mg Tablet, 1 MG PO DAILY PRN for ANXIETY, (Reported) Metformin HCl 1,000 Mg Tablet, 1,000 MG PO BID, (Reported) Ondansetron 4 Mg Tab.rapdis, 4 MG PO Q4H PRN for NAUSEA/VOMITING Prescribed by: JOHN ARTEAGA on 11/13/18 0509 Quetiapine Fumarate 200 Mg Tablet, 200 MG PO HS, (Reported) Topiramate 100 Mg Tablet, 150 MG PO BID, (Reported) TAKES 1 & 1/2 OF A (100 MG) TABLET Patient Home Medication List Home Medication List Reviewed: Yes Review of Systems Review of Systems Constitutional: see HPI EENTM: no symptoms reported Respiratory: see HPI Cardiovascular: see HPI Gastrointestinal: see HPI Genitourinary: no symptoms reported Musculoskeletal: no symptoms reported Skin: no symptoms reported Psychiatric/Neurological: Anxiety, Depressed, Emotional Problems Hematologic/Lymphatic: No Symptoms Reported Immunological/Allergic: no symptoms reported Past Qatrgrh-Zsemnj-Difilo Hx Patient Social History Alcohol Use: Denies Use Number of Drinks Today: AA Alcohol Beverage of Choice: Beer Recreational Drug Use: No (SMOKE 10 CIGARETTES PER DAY) Type Used: Cigarettes 2nd Hand Smoke Exposure: Yes Recent Foreign Travel: No Contact w/Someone Who Travel: No Recent Infectious Disease Expo: No Recent Hopitalizations: No Physical Abuse: No Sexual Abuse: No Mistreated: No Fear: No Immunizations Up To Date Tetanus Booster (TDap): Less than 5yrs Date of Pneumonia Vaccine: Oct 24, 2010 Date of Influenza Vaccine: Aug 30, 2015 Seasonal Allergies Seasonal Allergies: Yes Past Medical History Surgeries: Yes (EGD, RIGHT HIP SURGERY CHILD FOR UNKNOWN REASON; EYE SURGERY) Appendectomy, Eye Surgery, Gallbladder, Orthopedic Respiratory: No Cardiac: Yes High Cholesterol Neurological: Yes Headaches /Migraines Reproductive Disorders: No Female Reproductive Disorders: Denies Sexually Transmitted Disease: No HIV/AIDS: No Genitourinary: Yes UTI-Chronic Gastrointestinal: Yes Gastroesophageal Reflux Musculoskeletal: Yes (RIGHT HIP SURGERY CHILD FOR UNKNOWN REASON) Endocrine: Yes (INSULIN + ORAL MEDICATIONS; OBESITY) Diabetes, Insulin dep, Hypothyroidsim HEENT: No Loss of Vision: Bilateral Hearing Impairment: Denies Cancer: No Psychosocial: Yes (EXTENSIVE PSYCH ISSUES WITH MULTIPLE PSYCH ADMITS) Anxiety, Suicide Attempts, Bipolar, Depression Integumentary: No Blood Disorders: No Family Medical History Family history: Allergy 03 MOTHER 09 BROTHER Family history: Arthritis 03 MOTHER Family history: Asthma 09 BROTHER 09 SISTER Family history: Cardiovascular disease 03 FATHER ("TAKES MEDICATION FOR HIS HEART") Family history: Diabetes mellitus 03 FATHER Family history: Hypertension 03 MOTHER Hypercholesterolemia 03 MOTHER Psychosocial problem 09 SISTER (DEPRESSION) Psychotic disorder 09 SISTER (ANXIETY) No Family History of: Abdominal aortic aneurysm Thornton's disease Alcoholism Aphasia Cancer Cancer of colon Cataract Chest pain Congenital heart disease Congestive heart failure Cystic fibrosis Dementia Dysphagia Family history: Alzheimer's disease Family history: Breast disease Family history: Coronary thrombosis Family history: Gastrointestinal disease Family history: Glaucoma Family history: Osteoporosis Family history: Thyroid disorder Headache Hearing loss Heart disease Hereditary disease History of - anemia History of - disorder History of - respiratory disease History of drug abuse Human immunodeficiency virus (HIV) seropositivity Infertile Kidney disease Malignant neoplasm of lung Myocardial infarction Parkinson's disease Prostate cancer Seizure disorder Stroke Tuberculosis Visual impairment No Pertinent Family Hx Physical Exam Vital Signs Vital Signs - First Documented 09/15/20 17:00 Temp 35.4 Pulse 122 Resp 18 B/P (MAP) 121/96 (104) Pulse Ox 97 O2 Delivery Room Air Capillary Refill : Less Than 3 Seconds Height, Weight, BMI Height: 5'6.00" Weight: 192lbs. 0oz. [id number]; 29.00 BMI Method:Stated General Appearance: No Apparent Distress, WD/WN Eyes: Bilateral Eye PERRL, Bilateral Eye EOMI HEENT: PERRL/EOMI, TMs Normal, Normal ENT Inspection, Pharynx Normal Respiratory: Chest Non Tender, Lungs Clear, Normal Breath Sounds, No Respiratory Distress Cardiovascular: Regular Rate, Rhythm, No Murmur, Normal Peripheral Pulses Gastrointestinal: Normal Bowel Sounds, Non Tender, Soft Extremity: Normal Capillary Refill, Normal Inspection, Normal Range of Motion Neurologic/Psychiatric: Alert, No Motor/Sensory Deficits, Normal Mood/Affect Skin: Normal Color, Warm/Dry Focused Exam Lactate Level 09/15/20 18:57: Lactic Acid Level 1.17 Lactic Acid Level Laboratory Tests Test 09/15/20 18:57 Lactic Acid Level 1.17 MMOL/L (0.50-2.00) Progress/Results/Core Measures Suspected Sepsis Recent Fever Within 48 Hours: No Infection Criteria Present: None New/Unexplained Altered Menta: No Sepsis Screen: No Definite Risk SIRS Temperature: Pulse: 122 Respiratory Rate: 18 Laboratory Tests 09/15/20 17:15: White Blood Count 10.5 Blood Pressure 121 /96 Mean: 104 09/15/20 18:57: Lactic Acid Level 1.17 Laboratory Tests 09/15/20 17:15: Creatinine 1.16, Platelet Count 289, Total Bilirubin 0.7 Results/Orders Lab Results Laboratory Tests Test 09/15/20 17:15 09/15/20 17:17 09/15/20 17:20 09/15/20 18:03 Range/Units White Blood Count 10.5 4.3-11.0 10^3/uL Red Blood Count 5.64 H 3.80-5.11 10^6/uL Hemoglobin 16.0 11.5-16.0 g/dL Hematocrit 47 35-52 % Mean Corpuscular Volume 83 80-99 fL Mean Corpuscular Hemoglobin 28 25-34 pg Mean Corpuscular Hemoglobin Concent 34 32-36 g/dL Red Cell Distribution Width 13.1 10.0-14.5 % Platelet Count 289 130-400 10^3/uL Mean Platelet Volume 10.5 9.0-12.2 fL Immature Granulocyte % (Auto) 1 % Neutrophils (%) (Auto) 60 42-75 % Lymphocytes (%) (Auto) 31 12-44 % Monocytes (%) (Auto) 6 0-12 % Eosinophils (%) (Auto) 2 0-10 % Basophils (%) (Auto) 1 0-10 % Neutrophils # (Auto) 6.3 1.8-7.8 10^3/uL Lymphocytes # (Auto) 3.2 1.0-4.0 10^3/uL Monocytes # (Auto) 0.7 0.0-1.0 10^3/uL Eosinophils # (Auto) 0.2 0.0-0.3 10^3/uL Basophils # (Auto) 0.1 0.0-0.1 10^3/uL Immature Granulocyte # (Auto) 0.1 0.0-0.1 10^3/uL Neutrophils % (Manual) 63 % Lymphocytes % (Manual) 29 % Monocytes % (Manual) 6 % Eosinophils % (Manual) 2 % Blood Morphology Comment NORMAL Sodium Level 135 135-145 MMOL/L Potassium Level 3.8 3.6-5.0 MMOL/L Chloride Level 100 98-107 MMOL/L Carbon Dioxide Level 13 L 21-32 MMOL/L Anion Gap 22 H 5-14 MMOL/L Blood Urea Nitrogen 11 7-18 MG/DL Creatinine 1.16 0.60-1.30 MG/DL Estimat Glomerular Filtration Rate 52 BUN/Creatinine Ratio 9 Glucose Level 392 H 70-105 MG/DL Calcium Level 9.2 8.5-10.1 MG/DL Corrected Calcium 8.5-10.1 MG/DL Total Bilirubin 0.7 0.1-1.0 MG/DL Aspartate Amino Transf (AST/SGOT) 19 5-34 U/L Alanine Aminotransferase (ALT/SGPT) 27 0-55 U/L Alkaline Phosphatase 158 H 40-136 U/L Troponin I < 0.028 <0.028 NG/ML Total Protein 7.6 6.4-8.2 GM/DL Albumin 4.6 H 3.2-4.5 GM/DL Glucometer 368 H 70-110 MG/DL Urine Color YELLOW Urine Clarity CLEAR Urine pH 5.0 5-9 Urine Specific Sadler 1.020 1.016-1.022 Urine Protein NEGATIVE NEGATIVE Urine Glucose (UA) 3+ H NEGATIVE Urine Ketones 3+ H NEGATIVE Urine Nitrite NEGATIVE NEGATIVE Urine Bilirubin 1+ H NEGATIVE Urine Urobilinogen 0.2 < = 1.0 MG/DL Urine Leukocyte Esterase NEGATIVE NEGATIVE Urine RBC (Auto) NEGATIVE NEGATIVE Urine RBC NONE /HPF Urine WBC 2-5 /HPF Urine Crystals PRESENT H /LPF Urine Amorphous Sediment FEW JAZMINE URATES H /LPF Urine Bacteria NEGATIVE /HPF Urine Casts NONE /LPF Urine Mucus NEGATIVE /LPF Urine Culture Indicated NO Blood Gas Puncture Site RIGHT RADIAL Blood Gas Patient Temperature 35.4 Arterial Blood pH 7.31 *L 7.37-7.43 Arterial Blood Partial Pressure CO2 25 L 35-45 MMHG Arterial Blood Partial Pressure O2 93 79-93 MMHG Arterial Blood HCO3 13 *L 23-27 MMOL/L Arterial Blood Total CO2 13.3 L 21.0-31.0 MMOL/L Arterial Blood Oxygen Saturation 98 94-100 % Arterial Blood Base Excess -12.8 L -2.5-2.5 MMOL/L Dexter Test POSITIVE Blood Gas Ventilator Setting NO Blood Gas Inspired Oxygen 98% Test 09/15/20 18:57 09/15/20 20:47 Range/Units Glucometer 267 H 203 H 70-110 MG/DL Lactic Acid Level 1.17 0.50-2.00 MMOL/L My Orders Orders - ELIAS COFFMAN APRN Accucheck Stat ONCE (09/15/20 17:10) Ed Iv/Invasive Line Start (09/15/20 17:10) Cbc And Manual Diff (09/15/20 17:10) Comprehensive Metabolic Panel (09/15/20 17:10) Arterial Blood Gas (09/15/20 17:10) Ns Iv 1000 Ml (Sodium Chloride 0.9%) (09/15/20 17:45) Insulin (Regular) Human (Novolin R (Per (09/15/20 18:30) Troponin I (09/15/20 18:28) Ekg Tracing (09/15/20 18:28) Lactic Acid Analyzer (09/15/20 18:33) Ua Culture If Indicated (09/15/20 18:33) Accucheck Prn (09/15/20 18:41) Ns Iv 1000 Ml (Sodium Chloride 0.9%) (09/15/20 19:45) Medications Given in ED Current Medications Medications Dose Ordered Sig/Kiarra Route Start Time Stop Time Status Last Admin Dose Admin Insulin Human Regular 5 unit ONCE ONCE IV 09/15/20 18:30 09/15/20 18:31 DC 09/15/20 19:00 3 UNIT Vital Signs/I&O 09/15/20 17:00 Temp 35.4 Pulse 122 Resp 18 B/P (MAP) 121/96 (104) Pulse Ox 97 O2 Delivery Room Air Capillary Refill : Less Than 3 Seconds Blood Pressure Mean: 104 Point of Care Testing Finger Stick Blood Glucose: 267 Blood Glucose Action Taken: RN AND PROVIDER NOTIFIED Progress Note : Progress Note Initial labs reviewed with BG of 368, pH noted at 7.31, with an acid base of 12.8. Initiated. 1 L of normal saline and ordered regular insulin 5 units IVP. Blood glucose to be checked 30 mins after administration. After administration of normal saline. Blood glucose noted at 237. Order reduced from 5 units of regular insulin to 3 units of regular insulin. Vital signs stable. She is pending transfer to [facility]. ECG Initial ECG Impression Date: Sep 15, 2020 Departure Communication (Admissions) Time/Spoke to Consulting Phy: 18:00 Impression Primary Impression: Diabetic ketoacidosis Disposition: XFER SHT-TRM HOSP Condition: Stable Transfer Transfer Reason: Diversion Time Spoke to Accepting Phy: 18:[address] Yates here in ED and evaluated patient. Recommended adding lactic acid and UA sample. Once remaining lab results completed, to call Dr. Yates for patient transfer to [facility] for treatment of DKA. Transfer Time: 21:24 Transfer Facility: [facility] Method of Transfer: EMS Departure-Patient Inst. Referrals: [facility] (PCP/Family) Primary Care Physician ELIAS COFFMAN TITLE COORDINATOR Sep 15, 2020 19:40
--- NOTE | 2020-09-15 19:58 | NUR ---
Pt signed consent for transfer to [facility] at this time.
[2020-09-15 22:08] VITALS: BP 125/81
== END 2020-09-15 22:08 | disposition short-term general hospital (02) ==
LOC: EDUNIT# 16:52 → ER 16:54
DX: E11.10 Type 2 diabetes mellitus with ketoacidosis without coma (principal); F31.9 Bipolar disorder, unspecified; Z82.61 Family history of arthritis; Z82.49 Family history of ischemic heart disease and other diseases of the circulatory system; Z83.3 Family history of diabetes mellitus; Z77.22 Contact with and (suspected) exposure to environmental tobacco smoke (acute) (chronic); Z88.1 Allergy status to other antibiotic agents; Z88.0 Allergy status to penicillin; Z88.8 Allergy status to other drugs, medicaments and biological substances; Z79.4 Long term (current) use of insulin
CPT/HCPCS: 36415; 80053; 81000; 82805; 82962; 83605; 84484; 85007; 85027; 93005; 99291

== ENCOUNTER 2020-11-14 01:31 | Emergency (ER) | payer MEDICARE, MEDICAID ==
[~2020-11-14] VITALS: Ht 167.7 cm; Wt 85.0 kg
[~2020-11-14 01:31] MED LIST changes: +TRH2T PO; -TRIH2TAB2 PO
[2020-11-14] MEDS ORDERED: ONDANSETRON 4 MG/2 ML (SDV) Z0FRAN IVP ONE (01:45)
[2020-11-14] MEDS ORDERED: NS IV 1000 ML 1,000 ML IV SCH (01:45)
[2020-11-14 02:05] LABS: BASOPHILS # (AUTO) 0.1 10^3/uL (0.0-0.1); BASOPHILS % (AUTO) 1 % (0-10); EOSINOPHILS # (AUTO) 0.1 10^3/uL (0.0-0.3); EOSINOPHILS % (AUTO) 1 % (0-10); HEMATOCRIT 44 % (35-52); HEMOGLOBIN 15.4 g/dL (11.5-16.0); LYMPHOCYTES # (AUTO) 2.9 10^3/uL (1.0-4.0); LYMPHOCYTES % (AUTO) 25 % (12-44); MEAN CORPUSCULAR HEMOGLOBIN 29 pg (25-34); MEAN CORPUSCULAR HGB CONC 35 g/dL (32-36); MEAN CORPUSCULAR VOLUME 83 fL (80-99); MEAN PLATELET VOLUME 10.5 fL (9.0-12.2); MONOCYTES # (AUTO) 0.7 10^3/uL (0.0-1.0); MONOCYTES % (AUTO) 6 % (0-12); NEUTROPHILS # (AUTO) 7.6 10^3/uL (1.8-7.8); NEUTROPHILS % (AUTO) 66 % (42-75); PLATELET COUNT 300 10^3/uL (130-400); WHITE BLOOD COUNT 11.5 10^3/uL (4.3-11.0)
[2020-11-14 02:06] LABS: BILIRUBIN,URINE NEGATIVE (NEGATIVE); CLARITY,URINE CLEAR; COLOR,URINE YELLOW; GLUCOSE, URINE (UA) 3+ (NEGATIVE); KETONES,URINE 1+ (NEGATIVE); LEUKOCYTE ESTERASE ,URINE TRACE (NEGATIVE); NITRITE,URINE NEGATIVE (NEGATIVE); PROTEIN,URINE NEGATIVE (NEGATIVE)
[2020-11-14 02:13] LABS: ALBUMIN 4.5 GM/DL (3.2-4.5); CHLORIDE 105 MMOL/L (98-107); POTASSIUM 3.2 MMOL/L (3.6-5.0); SODIUM 139 MMOL/L (135-145)
[2020-11-14 02:14] LABS: AMYLASE 52 U/L (25-125); CALCIUM 9.9 MG/DL (8.5-10.1)
[2020-11-14] MEDS ORDERED: SCOPOLAMINE 1.5 MG (TRANSDERM-SCOP) PATCH TD ONE (02:15)
[2020-11-14 02:16] LABS: GLUCOSE 143 MG/DL (70-105); TOTAL PROTEIN 7.6 GM/DL (6.4-8.2)
--- NOTE | 2020-11-14 02:16 | ED GI ---
General Chief Complaint: Abdominal/GI Problems Stated Complaint: VOMITING,DIZZY,DIARRHEA,ABD PAIN Source of Information: Patient, Old Records History of Present Illness Date Seen by Provider: Nov 14, 2020 Time Seen by Provider: 01:42 Initial Comments PT ARRIVES VIA POV FROM HOME C/O DIZZINESS X 1 WEEK C/O NAUSEA AND VOMITING X 3 DAYS--HAS ZOFRAN AT HOME, BUT HAS NOT TAKEN ANY FOR THE LAST 2 DAYS. WAS HAVING DIARRHEA, BUT LAST EPISODE WAS > 24 HOURS AGO, AND HAS HAD NORMAL BM'S SINCE THEN C/O EPIGASTRIC PAIN NO FEVER/SWEATS/CHILLS NO URINARY SYMPTOMS AND VOIDING A NORMAL AMOUNT SYMPTOMS NO DIFFERENT TONIGHT IN ANY WAY WHATSOEVER HAS NOT SOUGHT CARE UNTIL TONIGHT NO SICK CONTACTS OR SUSPICIOUS FOODS HAS HISTORY OF SAME NO KNOWN EXPOSURE TO COVID-19 PT IS INSULIN DEPENDENT DIABETIC, WITH PRIOR ADMITS FOR DKA STATES HER BLOOD SUGARS HAVE BEEN IN THE 200'S SINCE HER LAST ADMIT, AND HER INSULIN WAS CHANGED. MULTIPLE VISITS FOR VARIOUS COMPLAINTS LMP 1 WEEK AGO. NORMAL. NO CONTROL. 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 Allergies and Home Medications Allergies Coded Allergies: amoxicillin (Unverified Allergy, Severe, sob, rash, 11/01/10) Penicillins (Verified Adverse Reaction, Severe, RASH, 12/14/05) cefuroxime (Verified Adverse Reaction, Severe, RASH, 12/14/05) clarithromycin (Unverified Adverse Reaction, Mild, nausea and dizziness, 02/07/14) Home Medications Albuterol Sulfate 18 Gm Hfa.aer.ad, 2 PUFF IH Q6H PRN for SHORTNESS OF BREATH, (Reported) Aripiprazole 2 Mg Tablet, 2 MG PO DAILY, (Reported) Guanfacine HCl 1 Mg Tab.er.24h, 1 MG PO HS, (Reported) Insulin Aspart 300 Units/3 Ml Solution, 25 UNITS SQ AC, (Reported) Insulin Detemir 100 Unit/1 Ml Insuln.pen, 67 UNITS SQ HS, (Reported) L. Acidophilus/Pectin, Davison 1 Each Capsule, 2 EACH PO QID Prescribed by: GAURANG STANTON on 11/14/20 0411 Lorazepam 1 Mg Tablet, 1 MG PO DAILY PRN for ANXIETY, (Reported) Meclizine HCl 25 Mg Tablet, 50 MG PO Q6 PRN for DIZZINESS Prescribed by: GAURANG STANTON on 11/14/20 0411 Metformin HCl 1,000 Mg Tablet, 1,000 MG PO BID, (Reported) Ondansetron 4 Mg Tab.rapdis, 4 MG PO Q4H PRN for NAUSEA/VOMITING Prescribed by: JOHN ARTEAGA on 11/13/18 0509 Quetiapine Fumarate 200 Mg Tablet, 200 MG PO HS, (Reported) Topiramate 100 Mg Tablet, 150 MG PO BID, (Reported) TAKES 1 & 1/2 OF A (100 MG) TABLET Patient Home Medication List Home Medication List Reviewed: Yes Review of Systems Review of Systems Constitutional: see HPI; No chills, No diaphoresis; dizziness; No fever, No malaise, No weakness EENTM: No Symptoms Reported Respiratory: No Symptoms Reported Cardiovascular: No Symptoms Reported Gastrointestinal: See HPI, Abdominal Pain, Diarrhea, Nausea, Poor Appetite, Vomiting Genitourinary: No Symptoms Reported; Denies Burning, Denies Frequency, Denies Flank Pain Musculoskeletal: no symptoms reported Skin: no symptoms reported Psychiatric/Neurological: See HPI (DIZZINESS) Endocrine: See HPI Hematologic/Lymphatic: No Symptoms Reported Past Blyfrbe-Kqccoi-Tvxsxv Hx Past Med/Social Hx: Reviewed and Corrections made Patient Social History Alcohol Beverage of Choice: Beer Type Used: Cigarettes 2nd Hand Smoke Exposure: Yes Recent Hopitalizations: No Immunizations Up To Date Tetanus Booster (TDap): Less than 5yrs Date of Pneumonia Vaccine: Oct 24, 2010 Date of Influenza Vaccine: Aug 30, 2015 Seasonal Allergies Seasonal Allergies: Yes Past Medical History Surgeries: Yes (EGD, RIGHT HIP SURGERY CHILD FOR UNKNOWN REASON; EYE SURGERY) Appendectomy, Eye Surgery, Gallbladder, Orthopedic Respiratory: No Cardiac: Yes High Cholesterol Neurological: Yes Headaches /Migraines Reproductive Disorders: No Female Reproductive Disorders: Denies Sexually Transmitted Disease: No HIV/AIDS: No Genitourinary: Yes UTI-Chronic Gastrointestinal: Yes Gastroesophageal Reflux Musculoskeletal: Yes (RIGHT HIP SURGERY CHILD FOR UNKNOWN REASON) Endocrine: Yes (INSULIN + ORAL MEDICATIONS; OBESITY) Diabetes, Insulin dep, Hypothyroidsim HEENT: No Loss of Vision: Bilateral Hearing Impairment: Denies Cancer: No Psychosocial: Yes (EXTENSIVE PSYCH ISSUES WITH MULTIPLE PSYCH ADMITS) Anxiety, Suicide Attempts, Bipolar, Depression Integumentary: No Blood Disorders: No Family Medical History Family history: Allergy 03 MOTHER 09 BROTHER Family history: Arthritis 03 MOTHER Family history: Asthma 09 BROTHER 09 SISTER Family history: Cardiovascular disease 03 FATHER ("TAKES MEDICATION FOR HIS HEART") Family history: Diabetes mellitus 03 FATHER Family history: Hypertension 03 MOTHER Hypercholesterolemia 03 MOTHER Psychosocial problem 09 SISTER (DEPRESSION) Psychotic disorder 09 SISTER (ANXIETY) No Family History of: Abdominal aortic aneurysm [place]'s disease Alcoholism Aphasia Cancer Cancer of colon Cataract Chest pain Congenital heart disease Congestive heart failure Cystic fibrosis Dementia Dysphagia Family history: Alzheimer's disease Family history: Breast disease Family history: Coronary thrombosis Family history: Gastrointestinal disease Family history: Glaucoma Family history: Osteoporosis Family history: Thyroid disorder Headache Hearing loss Heart disease Hereditary disease History of - anemia History of - disorder History of - respiratory disease History of drug abuse Human immunodeficiency virus (HIV) seropositivity Infertile Kidney disease Malignant neoplasm of lung Myocardial infarction Parkinson's disease Prostate cancer Seizure disorder Stroke Tuberculosis Visual impairment No Pertinent Family Hx SOCIAL HISTORY: -ETOH--RARELY USES -DRUGS-DENIES USE -SMOKES 1 PPD Physical Exam Vital Signs Vital Signs - First Documented 11/14/20 01:43 Temp 36.3 Pulse 119 Resp 18 B/P (MAP) 120/96 (104) Pulse Ox 98 O2 Delivery Room Air Capillary Refill : Height/Weight/BMI Height: 5'6.00" Weight: 192lbs. 0oz. 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, no motor/sensory deficits, alert, normal mood/affect, oriented x 3 Skin: normal color, warm/dry Focused Exam Lactate Level 11/14/20 01:55: Lactic Acid Level 1.56 Lactic Acid Level Laboratory Tests Test 11/14/20 01:55 Lactic Acid Level 1.56 MMOL/L (0.50-2.00) Progress/Results/Core Measures Results/Orders Lab Results Laboratory Tests Test 11/14/20 01:45 11/14/20 01:55 11/14/20 01:58 Range/Units Glucometer 138 H 70-110 MG/DL White Blood Count 11.5 H 4.3-11.0 10^3/uL Red Blood Count 5.38 H 3.80-5.11 10^6/uL Hemoglobin 15.4 11.5-16.0 g/dL Hematocrit 44 35-52 % Mean Corpuscular Volume 83 80-99 fL Mean Corpuscular Hemoglobin 29 25-34 pg Mean Corpuscular Hemoglobin Concent 35 32-36 g/dL Red Cell Distribution Width 12.8 10.0-14.5 % Platelet Count 300 130-400 10^3/uL Mean Platelet Volume 10.5 9.0-12.2 fL Immature Granulocyte % (Auto) 0 % Neutrophils (%) (Auto) 66 42-75 % Lymphocytes (%) (Auto) 25 12-44 % Monocytes (%) (Auto) 6 0-12 % Eosinophils (%) (Auto) 1 0-10 % Basophils (%) (Auto) 1 0-10 % Neutrophils # (Auto) 7.6 1.8-7.8 10^3/uL Lymphocytes # (Auto) 2.9 1.0-4.0 10^3/uL Monocytes # (Auto) 0.7 0.0-1.0 10^3/uL Eosinophils # (Auto) 0.1 0.0-0.3 10^3/uL Basophils # (Auto) 0.1 0.0-0.1 10^3/uL Immature Granulocyte # (Auto) 0.0 0.0-0.1 10^3/uL Sodium Level 139 135-145 MMOL/L Potassium Level 3.2 L 3.6-5.0 MMOL/L Chloride Level 105 98-107 MMOL/L Carbon Dioxide Level 20 L 21-32 MMOL/L Anion Gap 14 5-14 MMOL/L Blood Urea Nitrogen 15 7-18 MG/DL Creatinine 0.78 0.60-1.30 MG/DL Estimat Glomerular Filtration Rate > 60 BUN/Creatinine Ratio 19 Glucose Level 143 H 70-105 MG/DL Lactic Acid Level 1.56 0.50-2.00 MMOL/L Calcium Level 9.9 8.5-10.1 MG/DL Corrected Calcium 9.5 8.5-10.1 MG/DL Magnesium Level 1.7 1.6-2.4 MG/DL Total Bilirubin 0.6 0.1-1.0 MG/DL Aspartate Amino Transf (AST/SGOT) 20 5-34 U/L Alanine Aminotransferase (ALT/SGPT) 22 0-55 U/L Alkaline Phosphatase 146 H 40-136 U/L Total Protein 7.6 6.4-8.2 GM/DL Albumin 4.5 3.2-4.5 GM/DL Amylase Level 52 25-125 U/L Lipase 27 8-78 U/L Serum Test, Qualitative NEGATIVE NEGATIVE Serum Alcohol < 10 <10 MG/DL Urine Color YELLOW Urine Clarity CLEAR Urine pH 7.0 5-9 Urine Specific [place] 1.010 L 1.016-1.022 Urine Protein NEGATIVE NEGATIVE Urine Glucose (UA) 3+ H NEGATIVE Urine Ketones 1+ H NEGATIVE Urine Nitrite NEGATIVE NEGATIVE Urine Bilirubin NEGATIVE NEGATIVE Urine Urobilinogen 0.2 < = 1.0 MG/DL Urine Leukocyte Esterase TRACE H NEGATIVE Urine RBC (Auto) NEGATIVE NEGATIVE Urine RBC RARE /HPF Urine WBC RARE /HPF Urine Squamous Epithelial Cells >50 H /HPF Urine Crystals NONE /LPF Urine Bacteria TRACE /HPF Urine Casts NONE /LPF Urine Mucus SMALL H /LPF Urine Culture Indicated NO Urine Opiates Screen NEGATIVE NEGATIVE Urine Oxycodone Screen NEGATIVE NEGATIVE Urine Methadone Screen NEGATIVE NEGATIVE Urine Propoxyphene Screen NEGATIVE NEGATIVE Urine Barbiturates Screen NEGATIVE NEGATIVE Ur Tricyclic Antidepressants Screen NEGATIVE NEGATIVE Urine Phencyclidine Screen NEGATIVE NEGATIVE Urine Amphetamines Screen NEGATIVE NEGATIVE Urine Methamphetamines Screen NEGATIVE NEGATIVE Urine Benzodiazepines Screen NEGATIVE NEGATIVE Urine Cocaine Screen NEGATIVE NEGATIVE Urine Cannabinoids Screen NEGATIVE NEGATIVE My Orders Orders - GAURANG STANTON DO Accucheck Stat ONCE (11/14/20 01:42) Ed Iv/Invasive Line Start (11/14/20 01:42) Monitor-Rhythm Ecg Trace Only (11/14/20 01:42) Alcohol (11/14/20 01:42) Amylase (11/14/20 01:42) Cbc With Automated Diff (11/14/20 01:42) Comprehensive Metabolic Panel (11/14/20 01:42) Drug Screen Stat (Urine) (11/14/20 01:42) Hcg,Qualitative Serum (11/14/20 01:42) Lactic Acid Analyzer (11/14/20 01:42) Lipase (11/14/20 01:42) Magnesium (11/14/20 01:42) Ua Culture If Indicated (11/14/20 01:42) Ed Iv/Invasive Line Start (11/14/20 01:42) Ns Iv 1000 Ml (Sodium Chloride 0.9%) (11/14/20 01:45) Ondansetron Injection (Zofran Injectio (11/14/20 01:45) Scopolamine Patch (Transderm-Scop Patch) (11/14/20 02:15) Ct Abdomen/Pelvis W (11/14/20 02:47) Acute Abd Series (11/14/20 02:47) Pantoprazole Injection (Protonix Injecti (11/14/20 03:00) Iohexol Injection (Omnipaque 350 Mg/Ml 1 (11/14/20 03:30) Received Contrast (Hold Metformin- Contr (11/14/20 03:30) Ns (Ivpb) (Sodium Chloride 0.9% Ivpb Bag (11/14/20 03:30) Medications Given in ED Current Medications Medications Dose Ordered Sig/Kiarra Route Start Time Stop Time Status Last Admin Dose Admin Iohexol 100 ml ONCE ONCE IV 11/14/20 03:30 11/14/20 03:31 DC 11/14/20 03:18 100 ML Ondansetron HCl 8 mg ONCE ONCE IVP 11/14/20 01:45 11/14/20 01:46 DC 11/14/20 01:49 8 MG Pantoprazole 40 mg ONCE ONCE IV 11/14/20 03:00 11/14/20 03:01 DC 11/14/20 02:53 40 MG Scopolamine 1.5 mg ONCE ONCE TD 11/14/20 02:15 11/14/20 02:16 DC 11/14/20 02:53 1.5 MG Sodium Chloride 80 ml ONCE ONCE IV 11/14/20 03:30 11/14/20 03:31 DC 11/14/20 03:19 80 ML Vital Signs/I&O 11/14/20 11/14/20 01:43 04:15 Temp 36.3 36.3 Pulse 119 118 Resp 18 18 B/P (MAP) 120/96 (104) 98/77 (104) Pulse Ox 98 98 O2 Delivery Room Air Room Air Progress Progress Note : Progress Note ACCUCHECK 138 GIVEN IV FLUIDS, ZOFRAN AND SCOPOLAMINE PATCH NO VOMITING OR DIARRHEA DURING ER STAY SYMPTOMS IMPROVED AT DISMISSAL Departure Impression Primary Impression: Nausea vomiting and diarrhea Disposition: 01 HOME, SELF-CARE Condition: Improved Departure-Patient Inst. Referrals: [facility] (PCP/Family) Primary Care Physician Patient Instructions: Viral Gastroenteritis, Adult (DC) Add. Discharge Instructions: HOME, REST CLEAR LIQUIDS--WATER, BROTH, JELLO, GATORADE WHEN YOUR NAUSEA IS BETTER, ADD BRATS DIET TO CLEAR LIQUIDS--BANANAS, RICE, APPLESAUCE, TOAST, SALTINES LEAVE SCOPOLAMINE PATCH IN PLACE FOR 3 DAYS TAKE YOUR HOME ZOFRAN EVERY 4 HOURS NEEDED FOR NAUSEA FOLLOW UP WITH YOUR DR IN 2-3 DAYS IF NO BETTER All discharge instructions reviewed with patient and/or family. Voiced understanding. Scripts Meclizine HCl (Meclizine HCl) 25 Mg Tablet 50 MG PO Q6 PRN for DIZZINESS, #15 TAB Prov: GAURANG STANTON DO 11/14/20 L. Acidophilus/Pectin, Davison (Acidophilus Capsule) 1 Each Capsule 2 EACH PO QID, #40 CAP Prov: GAURANG STANTON DO 11/14/20 GAURANG STANTON DO Nov 14, 2020 02:16
[2020-11-14 02:17] LABS: BILIRUBIN,TOTAL 0.6 MG/DL (0.1-1.0); CARBON DIOXIDE 20 MMOL/L (21-32)
[2020-11-14 02:19] LABS: ALKALINE PHOSPHATASE 146 U/L (40-136); CREATININE SERUM 0.78 MG/DL (0.60-1.30); GFR ESTIMATED > 60
[2020-11-14 02:20] LABS: BUN/CREATININE RATIO 19
[2020-11-14 02:22] LABS: ALANINE AMINOTRANSFERASE 22 U/L (0-55); MAGNESIUM 1.7 MG/DL (1.6-2.4)
[2020-11-14 02:22] LABS: AMPHETAMINE SCREEN, URINE NEGATIVE (NEGATIVE); BARBITURATE SCREEN URINE NEGATIVE (NEGATIVE); BENZODIAZEPINES SCREEN URINE NEGATIVE (NEGATIVE); CANNABINOID SCREEN, URINE NEGATIVE (NEGATIVE); COCAINE SCREEN URINE NEGATIVE (NEGATIVE); METHADONE STAT NEGATIVE (NEGATIVE); METHAMPHETAMINE SCREEN URINE S NEGATIVE (NEGATIVE); OPIATE SCREEN URINE NEGATIVE (NEGATIVE); OXYCODONE STAT NEGATIVE (NEGATIVE); PROPOXYPHENE STAT NEGATIVE (NEGATIVE); TRICYCLIC ANTIDEPRESSANTS SCRE NEGATIVE (NEGATIVE)
[2020-11-14 02:23] LABS: LIPASE 27 U/L (8-78)
[2020-11-14 02:23] LABS: BACTERIA,URINE TRACE /HPF; RBC,URINE RARE /HPF; SQUAMOUS EPITHELIAL CELL,UR >50 /HPF; WBC,URINE RARE /HPF
[2020-11-14] MEDS ORDERED: PANTOPRAZOLE 40 MG (PROTONIX) VIAL IV ONE (03:00)
[2020-11-14] MEDS ORDERED: IOHEXOL 350 MG/ML 100 ML (OMNIPAQUE 350) VIAL IV ONE (03:30)
[2020-11-14] MEDS ORDERED: NS 100 ML (IVPB) BAG IV ONE (03:30)
[2020-11-14] MEDS ORDERED: HOLD METFORMIN - RECEIVED CONTRAST 20 ML VIAL IV SCH (03:30)
[2020-11-14] MEDS ORDERED: L. A1CAP11 PO (04:11)
[2020-11-14] MEDS ORDERED: MECL-149 PO (04:11)
[2020-11-14 04:15] VITALS: BP 98/77
--- NOTE | 2020-11-14 06:16 | Diagnostic Imaging Report ---
INDICATION: Abdominal pain with nausea, vomiting and diarrhea. TECHNIQUE: Single view chest with supine and upright radiographs of the abdomen. CORRELATION STUDY: None FINDINGS: Frontal radiograph of the chest demonstrates no acute abnormality. There are prominent areas of distention of gastrointestinal tract. Includes dilated small bowel loops with suggested air-fluid levels in the right mid abdomen. Also appears be dilated colon with air-fluid levels as well. Cholecystectomy clips in the right upper quadrant. Calcification right upper quadrant favors probable renal stone. IMPRESSION: 1. Negative for acute cardiopulmonary abnormality. 2. Prominent dilated loops of small bowel along with some segments of colon. While features may reflect underlying ileus, does raise concern for underlying bowel obstruction. Follow-up imaging is recommended. Dictated by: Dictated on workstation # [id number]
--- NOTE | 2020-11-14 07:28 | Diagnostic Imaging Report ---
PROCEDURE: CT abdomen and pelvis with contrast. TECHNIQUE: Multiple contiguous axial images were obtained through the abdomen and pelvis after administration of intravenous contrast. Auto Exposure Controls were utilized during the CT exam to meet ALARA standards for radiation dose reduction. All CT scans use one or more of the following dose optimizing techniques: automated exposure control, MA and/or KvP adjustment based on patient size and exam type or iterative reconstruction. DATE: November 14, 2020. COMPARISON: CT abdomen pelvis December 27, 2017. INDICATION: 40-year-old female, nausea, vomiting, diarrhea. Abdominal pain. FINDINGS: The visualized portions of the lung bases are clear. The heart is not enlarged. There is no identified pericardial effusion. The liver is unremarkable in size and contour. There is no identified liver lesion. The main, right, left portal veins are patent. The patient is status post cholecystectomy. There is no biliary ductal dilation. The pancreas is unremarkable in appearance. The spleen is normal in size. The adrenal glands are unremarkable. There is a 5 mm nonobstructing right renal stone on axial image 37. The urinary collecting systems are not distended. There is no identified ureteral stone. Urinary bladder is unremarkable. There are long segments of mild wall thickening and mucosal enhancement of the colon including involvement of the sigmoid colon, transverse colon, and right colon. The appendix is not well seen. There are no secondary findings to specifically suggest acute appendicitis. There is mucosal enhancement of the stomach. There is no free intraperitoneal air. There is no drainable fluid collection. There is no free pelvic fluid. There is a retroaortic left renal vein. There is no identified abnormally enlarged lymph node in the abdomen or pelvis meeting CT size criteria for adenopathy. There is no identified acute bony abnormality. IMPRESSION: CT ABDOMEN AND PELVIS. 1. Wall thickening and mucosal enhancement involving multiple segments of the colon most likely relating to an infectious or inflammatory colitis. 2. Mucosal enhancement of the stomach likely relating to gastritis. Dictated by: Dictated on workstation # [id number]
== END 2020-11-14 04:15 | disposition home or self-care (01) ==
LOC: EDUNIT# 01:31 → ER 01:34
DX: R11.2 Nausea with vomiting, unspecified (principal); R19.7 Diarrhea, unspecified; E11.9 Type 2 diabetes mellitus without complications; F41.9 Anxiety disorder, unspecified; F31.9 Bipolar disorder, unspecified; E66.9 Obesity, unspecified; Z68.29 Body mass index [BMI] 29.0-29.9, adult; Z88.1 Allergy status to other antibiotic agents; Z88.0 Allergy status to penicillin; Z82.61 Family history of arthritis; Z82.49 Family history of ischemic heart disease and other diseases of the circulatory system; Z83.3 Family history of diabetes mellitus; Z77.22 Contact with and (suspected) exposure to environmental tobacco smoke (acute) (chronic); Z79.4 Long term (current) use of insulin
CPT/HCPCS: 74022; 74177; 80053; 80306; 81000; 82150; 82962; 83605; 83690; 83735; 84703; 85025; 93041; 99284; G0480; 36415; 80320

== ENCOUNTER 2020-12-08 16:34 | Emergency (ER) | payer MEDICARE, MEDICAID ==
[~2020-12-08] VITALS: Ht 165 cm; Wt 84.8 kg
[~2020-12-08 16:34] MED LIST changes: +L. A1CAP11 PO; +MECL-149 PO; +QUET50TA22; -QUET50TA55
--- NOTE | 2020-12-08 16:55 | ED Psychosocial ---
General Chief Complaint: Psych/Social Disorder Stated Complaint: SUICIDAL Source: patient, EMS Exam Limitations: no limitations History of Present Illness Date Seen by Provider: Dec 08, 2020 Time Seen by Provider: 16:54 Initial Comments To ER by EMS from home with reports of suicidal thoughts. She did some self harming behavior by cutting her left upper arm superficially (does not require sutures) about 15 minutes ago. She had the same thing to the right upper arm a few days ago. She has been off of her psych meds since October because of some ongoing nausea which started after initiating Ozempic for her diabetes management. She states she like to be admitted to an inpatient facility to get her medications straightened out. Extensive psychiatric history with frequent inpatient hospitalizations Timing/Duration: constant Severity: moderate Associated Symptoms: suicidal ideation Allergies and Home Medications Allergies Coded Allergies: amoxicillin (Unverified Allergy, Severe, sob, rash, 11/01/10) Penicillins (Verified Adverse Reaction, Severe, RASH, 12/14/05) cefuroxime (Verified Adverse Reaction, Severe, RASH, 12/14/05) clarithromycin (Unverified Adverse Reaction, Mild, nausea and dizziness, 02/07/14) Home Medications Albuterol Sulfate 18 Gm Hfa.aer.ad, 2 PUFF IH Q6H PRN for SHORTNESS OF BREATH, (Reported) Aripiprazole 2 Mg Tablet, 2 MG PO DAILY, (Reported) Guanfacine HCl 1 Mg Tab.er.24h, 1 MG PO HS, (Reported) Insulin Aspart 300 Units/3 Ml Solution, 25 UNITS SQ AC, (Reported) Insulin Detemir 100 Unit/1 Ml Insuln.pen, 67 UNITS SQ HS, (Reported) L. Acidophilus/Pectin, [place] 1 Each Capsule, 2 EACH PO QID Prescribed by: GAURANG STANTON on 11/14/20410 Lorazepam 1 Mg Tablet, 1 MG PO DAILY PRN for ANXIETY, (Reported) Meclizine HCl 25 Mg Tablet, 50 MG PO Q6 PRN for DIZZINESS Prescribed by: GAURANG STANTON on 11/14/20410 Metformin HCl 1,000 Mg Tablet, 1,000 MG PO BID, (Reported) Ondansetron 4 Mg Tab.rapdis, 4 MG PO Q4H PRN for NAUSEA/VOMITING Prescribed by: JOHN ARTEAGA on 11/13/18 0504 Quetiapine Fumarate 200 Mg Tablet, 200 MG PO HS, (Reported) Topiramate 100 Mg Tablet, 150 MG PO BID, (Reported) TAKES 1 & 1/2 OF A (100 MG) TABLET Patient Home Medication List Home Medication List Reviewed: Yes Review of Systems Constitutional: see HPI EENTM: see HPI Respiratory: no symptoms reported Cardiovascular: no symptoms reported Gastrointestinal: nausea Genitourinary: no symptoms reported Musculoskeletal: no symptoms reported Skin: no symptoms reported Past Cbehvrz-[place] Hx Patient Social History Alcohol Use: Denies Use Number of Drinks Today: AA Alcohol Beverage of Choice: Beer Smoking Status: Former Smoker Type Used: Cigarettes Former Smoker, Quit: Oct 27, 2020 2nd Hand Smoke Exposure: Yes Recent Hopitalizations: No Immunizations Up To Date Tetanus Booster (TDap): Less than 5yrs Date of Pneumonia Vaccine: Oct 24, 2010 Date of Influenza Vaccine: Aug 30, 2015 Seasonal Allergies Seasonal Allergies: Yes Past Medical History Surgeries: Yes (EGD, RIGHT HIP SURGERY CHILD FOR UNKNOWN REASON; EYE SURGERY) Appendectomy, Eye Surgery, Gallbladder, Orthopedic Respiratory: No Cardiac: Yes High Cholesterol Neurological: Yes Headaches /Migraines Reproductive Disorders: No Female Reproductive Disorders: Denies Sexually Transmitted Disease: No HIV/AIDS: No Genitourinary: Yes UTI-Chronic Gastrointestinal: Yes Gastroesophageal Reflux Musculoskeletal: Yes (RIGHT HIP SURGERY CHILD FOR UNKNOWN REASON) Endocrine: Yes (INSULIN + ORAL MEDICATIONS; OBESITY) Diabetes, Insulin dep, Hypothyroidsim HEENT: No Loss of Vision: Bilateral Hearing Impairment: Denies Cancer: No Psychosocial: Yes (EXTENSIVE PSYCH ISSUES WITH MULTIPLE PSYCH ADMITS) Anxiety, Suicide Attempts, Bipolar, Depression Integumentary: No Blood Disorders: No Family Medical History Family history: Allergy 03 MOTHER 09 BROTHER Family history: Arthritis 03 MOTHER Family history: Asthma 09 BROTHER 09 SISTER Family history: Cardiovascular disease 03 FATHER ("TAKES MEDICATION FOR HIS HEART") Family history: Diabetes mellitus 03 FATHER Family history: Hypertension 03 MOTHER Hypercholesterolemia 03 MOTHER Psychosocial problem 09 SISTER (DEPRESSION) Psychotic disorder 09 SISTER (ANXIETY) No Family History of: Abdominal aortic aneurysm Caldwell's disease Alcoholism Aphasia Cancer Cancer of colon Cataract Chest pain Congenital heart disease Congestive heart failure Cystic fibrosis Dementia Dysphagia Family history: Alzheimer's disease Family history: Breast disease Family history: Coronary thrombosis Family history: Gastrointestinal disease Family history: Glaucoma Family history: Osteoporosis Family history: Thyroid disorder Headache Hearing loss Heart disease Hereditary disease History of - anemia History of - disorder History of - respiratory disease History of drug abuse Human immunodeficiency virus (HIV) seropositivity Infertile Kidney disease Malignant neoplasm of lung Myocardial infarction Parkinson's disease Prostate cancer Seizure disorder Stroke Tuberculosis Visual impairment No Pertinent Family Hx SOCIAL HISTORY: -ETOH--RARELY USES -DRUGS-DENIES USE -SMOKES 1 PPD Physical Exam Vital Signs - First Documented 12/08/20 16:46 Temp 36.7 Pulse 94 Resp 18 B/P (MAP) 143/99 (114) Pulse Ox 99 Capillary Refill : Height, Weight, BMI Height: 5'6.00" Weight: 192lbs. 0oz. 87.250991bg; 30.00 BMI Method:Stated General Appearance: WD/WN, no apparent distress, other (Alert oriented pleasant cooperative. Vitals are stable no dry heaving or vomiting here.) HEENT: PERRL/EOMI, normal ENT inspection Neck: non-tender, full range of motion Respiratory: normal breath sounds, no respiratory distress, no accessory muscle use Cardiovascular: regular rate, rhythm, no murmur Gastrointestinal: normal bowel sounds, non tender, soft Neurologic/Psychiatric: alert, normal mood/affect, oriented x 3 Appearance/Memory: no memory impairment, disheveled Behavior/Eye Contact: cooperative, good eye contact, normal speech Skin: normal color, warm/dry Progress/Results/Core Measures Results/Orders Lab Results Laboratory Tests Test 12/08/20 16:52 12/08/20 17:45 12/08/20 18:30 Range/Units White Blood Count 7.3 4.3-11.0 10^3/uL Red Blood Count 4.97 3.80-5.11 10^6/uL Hemoglobin 14.1 11.5-16.0 g/dL Hematocrit 41 35-52 % Mean Corpuscular Volume 83 80-99 fL Mean Corpuscular Hemoglobin 28 25-34 pg Mean Corpuscular Hemoglobin Concent 34 32-36 g/dL Red Cell Distribution Width 12.9 10.0-14.5 % Platelet Count 227 130-400 10^3/uL Mean Platelet Volume 11.4 9.0-12.2 fL Immature Granulocyte % (Auto) 0 % Neutrophils (%) (Auto) 51 42-75 % Lymphocytes (%) (Auto) 37 12-44 % Monocytes (%) (Auto) 9 0-12 % Eosinophils (%) (Auto) 3 0-10 % Basophils (%) (Auto) 1 0-10 % Neutrophils # (Auto) 3.7 1.8-7.8 10^3/uL Lymphocytes # (Auto) 2.7 1.0-4.0 10^3/uL Monocytes # (Auto) 0.6 0.0-1.0 10^3/uL Eosinophils # (Auto) 0.2 0.0-0.3 10^3/uL Basophils # (Auto) 0.1 0.0-0.1 10^3/uL Immature Granulocyte # (Auto) 0.0 0.0-0.1 10^3/uL Urine Color YELLOW Urine Clarity SL CLOUDY Urine pH 6.0 5-9 Urine Specific [place] 1.015 L 1.016-1.022 Urine Protein NEGATIVE NEGATIVE Urine Glucose (UA) 3+ H NEGATIVE Urine Ketones NEGATIVE NEGATIVE Urine Nitrite NEGATIVE NEGATIVE Urine Bilirubin NEGATIVE NEGATIVE Urine Urobilinogen 0.2 < = 1.0 MG/DL Urine Leukocyte Esterase NEGATIVE NEGATIVE Urine RBC (Auto) NEGATIVE NEGATIVE Urine RBC NONE /HPF Urine WBC 10-25 H /HPF Urine Squamous Epithelial Cells 25-50 H /HPF Urine Renal Epithelial Cells 5-10 /HPF Urine Crystals NONE /LPF Urine Bacteria NEGATIVE /HPF Urine Casts NONE /LPF Urine Mucus NEGATIVE /LPF Urine Culture Indicated NO Sodium Level 138 135-145 MMOL/L Potassium Level 3.1 L 3.6-5.0 MMOL/L Chloride Level 103 98-107 MMOL/L Carbon Dioxide Level 22 21-32 MMOL/L Anion Gap 13 5-14 MMOL/L Blood Urea Nitrogen 7 7-18 MG/DL Creatinine 0.77 0.60-1.30 MG/DL Estimat Glomerular Filtration Rate > 60 BUN/Creatinine Ratio 9 Glucose Level 396 H 70-105 MG/DL Calcium Level 8.8 8.5-10.1 MG/DL Corrected Calcium 8.8 8.5-10.1 MG/DL Total Bilirubin 0.6 0.1-1.0 MG/DL Aspartate Amino Transf (AST/SGOT) 31 5-34 U/L Alanine Aminotransferase (ALT/SGPT) 53 0-55 U/L Alkaline Phosphatase 102 40-136 U/L Total Protein 6.5 6.4-8.2 GM/DL Albumin 4.0 3.2-4.5 GM/DL Beta-Hydroxybutyrate (Chem panel) 0.52 H 0.00-0.27 MMOL/L Serum Test, Qualitative NEGATIVE NEGATIVE Salicylates Level < 5.0 L 5.0-20.0 MG/DL Urine Opiates Screen NEGATIVE NEGATIVE Urine Oxycodone Screen NEGATIVE NEGATIVE Urine Methadone Screen NEGATIVE NEGATIVE Urine Propoxyphene Screen NEGATIVE NEGATIVE Acetaminophen Level < 10 L 10-30 UG/ML Urine Barbiturates Screen NEGATIVE NEGATIVE Ur Tricyclic Antidepressants Screen NEGATIVE NEGATIVE Urine Phencyclidine Screen NEGATIVE NEGATIVE Urine Amphetamines Screen NEGATIVE NEGATIVE Urine Methamphetamines Screen NEGATIVE NEGATIVE Urine Benzodiazepines Screen NEGATIVE NEGATIVE Urine Cocaine Screen NEGATIVE NEGATIVE Urine Cannabinoids Screen NEGATIVE NEGATIVE Serum Alcohol < 10 <10 MG/DL Coronavirus 2019 ([facility]) Negative Negative My Orders Orders - TANYA GONZALEZ APRN Cbc With Automated Diff (12/08/20 16:39) Comprehensive Metabolic Panel (12/08/20 16:39) Ua Culture If Indicated (12/08/20 16:39) Ed Iv/Invasive Line Start (12/08/20 16:39) Hcg,Qualitative Serum (12/08/20 16:39) Drug Screen Stat (Urine) (12/08/20 16:39) Acetaminophen (12/08/20 16:39) Salicylate (12/08/20 16:39) Alcohol (12/08/20 16:39) Ekg Tracing (12/08/20 16:39) Beta Hydroxybutyrate (12/08/20 16:53) Ceftriaxone For Iv Use (Rocephin For I (12/08/20 17:30) Ns Iv 1000 Ml (Sodium Chloride 0.9%) (12/08/20 17:30) Insulin (Regular) Human (Novolin R (Per (12/08/20 17:30) Potassium Chloride (Tablet) (Klor Con Ta (12/08/20 17:30) Covid 19 Inhouse Test (12/08/20 17:30) Medications Given in ED Current Medications Medications Dose Ordered Sig/Kiarra Route Start Time Stop Time Status Last Admin Dose Admin Ceftriaxone Sodium 1000 mg/ Sterile Water 10 ml @ 200 mls/hr ONCE ONCE IV 12/08/20 17:30 12/08/20 17:32 DC 12/08/20 17:36 200 MLS/HR Potassium Chloride 40 meq ONCE ONCE PO 12/08/20 17:30 12/08/20 17:31 DC 12/08/20 17:35 40 MEQ Vital Signs/I&O 12/08/20 16:46 Temp 36.7 Pulse 94 Resp 18 B/P (MAP) 143/99 (114) Pulse Ox 99 Departure Communication (Admissions) [facility] has a bed. I am awaiting a phone call back from Dr. Suarez. Impression Primary Impression: SUICIDAL IDEATION Disposition: XFER SHT-TRM HOSP Condition: Stable Departure-Patient Inst. Referrals: [facility] (PCP/Family) Primary Care Physician TANYA GONZALEZ APRN Dec 08, 2020 16:55
[2020-12-08 17:02] LABS: BASOPHILS # (AUTO) 0.1 10^3/uL (0.0-0.1); BASOPHILS % (AUTO) 1 % (0-10); BILIRUBIN,URINE NEGATIVE (NEGATIVE); CLARITY,URINE SL CLOUDY; COLOR,URINE YELLOW; EOSINOPHILS # (AUTO) 0.2 10^3/uL (0.0-0.3); EOSINOPHILS % (AUTO) 3 % (0-10); GLUCOSE, URINE (UA) 3+ (NEGATIVE); HEMATOCRIT 41 % (35-52); HEMOGLOBIN 14.1 g/dL (11.5-16.0); KETONES,URINE NEGATIVE (NEGATIVE); LEUKOCYTE ESTERASE ,URINE NEGATIVE (NEGATIVE); LYMPHOCYTES # (AUTO) 2.7 10^3/uL (1.0-4.0); LYMPHOCYTES % (AUTO) 37 % (12-44); MEAN CORPUSCULAR HEMOGLOBIN 28 pg (25-34); MEAN CORPUSCULAR HGB CONC 34 g/dL (32-36); MEAN CORPUSCULAR VOLUME 83 fL (80-99); MEAN PLATELET VOLUME 11.4 fL (9.0-12.2); MONOCYTES # (AUTO) 0.6 10^3/uL (0.0-1.0); MONOCYTES % (AUTO) 9 % (0-12); NEUTROPHILS # (AUTO) 3.7 10^3/uL (1.8-7.8); NEUTROPHILS % (AUTO) 51 % (42-75); NITRITE,URINE NEGATIVE (NEGATIVE); PLATELET COUNT 227 10^3/uL (130-400); PROTEIN,URINE NEGATIVE (NEGATIVE); WHITE BLOOD COUNT 7.3 10^3/uL (4.3-11.0)
[2020-12-08 17:12] LABS: CHLORIDE 103 MMOL/L (98-107); POTASSIUM 3.1 MMOL/L (3.6-5.0); SODIUM 138 MMOL/L (135-145)
[2020-12-08 17:14] LABS: CALCIUM 8.8 MG/DL (8.5-10.1)
[2020-12-08 17:15] LABS: BACTERIA,URINE NEGATIVE /HPF; GLUCOSE 396 MG/DL (70-105); SQUAMOUS EPITHELIAL CELL,UR 25-50 /HPF; TOTAL PROTEIN 6.5 GM/DL (6.4-8.2)
[2020-12-08 17:16] LABS: CARBON DIOXIDE 22 MMOL/L (21-32)
[2020-12-08 17:17] LABS: BILIRUBIN,TOTAL 0.6 MG/DL (0.1-1.0)
[2020-12-08 17:19] LABS: ALKALINE PHOSPHATASE 102 U/L (40-136); CREATININE SERUM 0.77 MG/DL (0.60-1.30); GFR ESTIMATED > 60
[2020-12-08 17:20] LABS: BUN/CREATININE RATIO 9
[2020-12-08 17:22] LABS: ALANINE AMINOTRANSFERASE 53 U/L (0-55); SALICYLATE < 5.0 MG/DL (5.0-20.0)
[2020-12-08 17:23] LABS: AMPHETAMINE SCREEN, URINE NEGATIVE (NEGATIVE); BARBITURATE SCREEN URINE NEGATIVE (NEGATIVE); BENZODIAZEPINES SCREEN URINE NEGATIVE (NEGATIVE); CANNABINOID SCREEN, URINE NEGATIVE (NEGATIVE); COCAINE SCREEN URINE NEGATIVE (NEGATIVE); METHADONE STAT NEGATIVE (NEGATIVE); METHAMPHETAMINE SCREEN URINE S NEGATIVE (NEGATIVE); OPIATE SCREEN URINE NEGATIVE (NEGATIVE); OXYCODONE STAT NEGATIVE (NEGATIVE); PROPOXYPHENE STAT NEGATIVE (NEGATIVE); TRICYCLIC ANTIDEPRESSANTS SCRE NEGATIVE (NEGATIVE)
[2020-12-08 17:24] LABS: ACETAMINOPHEN < 10 UG/ML (10-30)
[2020-12-08] MEDS ORDERED: NS IV 1000 ML 1,000 ML IV SCH (17:30)
[2020-12-08] MEDS ORDERED: cefTRIAXone FOR IV USE 1,000 MG in WATER (STERILE) FOR INJECTION 10 ML IV ONE (17:30)
[2020-12-08] MEDS ORDERED: inSUlin (REGULAR) HUMAN 1 UNIT/0.01 ML (CHARGE PER UNIT) SC SCH (17:30)
[2020-12-08] MEDS ORDERED: KCL 10 MEQ TAB (MICRO K) PO ONE (17:30)
[2020-12-08 19:11] VITALS: BP 138/97
== END 2020-12-08 19:11 | disposition short-term general hospital (02) ==
LOC: EDUNIT# 16:34 → ER 16:35
DX: R45.851 Suicidal ideations (principal); F31.9 Bipolar disorder, unspecified; E11.9 Type 2 diabetes mellitus without complications; Z20.822 Contact with and (suspected) exposure to COVID-19; Z88.0 Allergy status to penicillin; Z88.1 Allergy status to other antibiotic agents; Z87.891 Personal history of nicotine dependence; Z82.49 Family history of ischemic heart disease and other diseases of the circulatory system; Z82.61 Family history of arthritis; Z83.3 Family history of diabetes mellitus; Z79.4 Long term (current) use of insulin
CPT/HCPCS: 80053; 80306; 81000; 82010; 82962; 84703; 85025; G0480 ×3; U0002; 36415; 80320; 80329; 87635; 93005

== ENCOUNTER 2021-07-17 00:38 | Emergency (ER) | payer MEDICARE, MEDICAID ==
[~2021-07-17] VITALS: Ht 167.7 cm; Wt 86.6 kg
[~2021-07-17 00:38] MED LIST changes: -GUAN1TAB28 PO; +GUAN1TAB30 PO; -QUET50TA22; +QUET50TA23; +SULF1TAB38 PO
[2021-07-17] MEDS ORDERED: OLANZapine 5 MG ODT (ZyPREXA ZYDIS) SL ONE (01:00)
[2021-07-17 01:07] LABS: BASOPHILS # (AUTO) 0.1 10^3/uL (0.0-0.1); BASOPHILS % (AUTO) 1 % (0-10); EOSINOPHILS # (AUTO) 0.5 10^3/uL (0.0-0.3); EOSINOPHILS % (AUTO) 4 % (0-10); HEMATOCRIT 44 % (35-52); HEMOGLOBIN 14.8 g/dL (11.5-16.0); LYMPHOCYTES % (AUTO) 27 % (12-44); MEAN CORPUSCULAR HEMOGLOBIN 31 pg (25-34); MEAN CORPUSCULAR HGB CONC 34 g/dL (32-36); MEAN CORPUSCULAR VOLUME 90 fL (80-99); MEAN PLATELET VOLUME 10.5 fL (9.0-12.2); MONOCYTES # (AUTO) 1.1 10^3/uL (0.0-1.0); MONOCYTES % (AUTO) 10 % (0-12); NEUTROPHILS # (AUTO) 6.5 10^3/uL (1.8-7.8); NEUTROPHILS % (AUTO) 58 % (42-75); PLATELET COUNT 246 10^3/uL (130-400); WHITE BLOOD COUNT 11.2 10^3/uL (4.3-11.0)
[2021-07-17 01:09] LABS: BILIRUBIN,URINE NEGATIVE (NEGATIVE); CLARITY,URINE SL CLOUDY; COLOR,URINE YELLOW; GLUCOSE, URINE (UA) 3+ (NEGATIVE); KETONES,URINE 1+ (NEGATIVE); LEUKOCYTE ESTERASE ,URINE NEGATIVE (NEGATIVE); NITRITE,URINE NEGATIVE (NEGATIVE); PROTEIN,URINE NEGATIVE (NEGATIVE)
[2021-07-17 01:13] LABS: ALBUMIN 4.2 GM/DL (3.2-4.5); CHLORIDE 104 MMOL/L (98-107); POTASSIUM 3.8 MMOL/L (3.6-5.0); SODIUM 140 MMOL/L (135-145)
[2021-07-17 01:15] LABS: CALCIUM 9.8 MG/DL (8.5-10.1)
[2021-07-17 01:16] LABS: GLUCOSE 182 MG/DL (70-105); TOTAL PROTEIN 7.2 GM/DL (6.4-8.2)
[2021-07-17 01:17] LABS: CARBON DIOXIDE 23 MMOL/L (21-32)
[2021-07-17 01:18] LABS: BILIRUBIN,TOTAL 0.5 MG/DL (0.1-1.0)
[2021-07-17 01:20] LABS: ALKALINE PHOSPHATASE 101 U/L (40-136); CREATININE SERUM 0.82 MG/DL (0.60-1.30); GFR ESTIMATED 77
[2021-07-17 01:21] LABS: BUN/CREATININE RATIO 23
[2021-07-17 01:22] LABS: SALICYLATE < 5.0 MG/DL (5.0-20.0)
[2021-07-17 01:23] LABS: ALANINE AMINOTRANSFERASE 18 U/L (0-55)
[2021-07-17 01:41] LABS: ACETAMINOPHEN < 10 UG/ML (10-30)
[2021-07-17 01:43] LABS: FREE T4 (FREE THYROXINE) 0.94 NG/DL (0.70-1.48)
[2021-07-17 01:52] LABS: BACTERIA,URINE FEW /HPF
[2021-07-17 01:57] LABS: AMPHETAMINE SCREEN, URINE NEGATIVE (NEGATIVE); BARBITURATE SCREEN URINE NEGATIVE (NEGATIVE); BENZODIAZEPINES SCREEN URINE NEGATIVE (NEGATIVE); CANNABINOID SCREEN, URINE POSITIVE (NEGATIVE); COCAINE SCREEN URINE NEGATIVE (NEGATIVE); METHADONE STAT NEGATIVE (NEGATIVE); METHAMPHETAMINE SCREEN URINE S NEGATIVE (NEGATIVE); OPIATE SCREEN URINE NEGATIVE (NEGATIVE); OXYCODONE STAT NEGATIVE (NEGATIVE); PROPOXYPHENE STAT NEGATIVE (NEGATIVE); TRICYCLIC ANTIDEPRESSANTS SCRE NEGATIVE (NEGATIVE)
--- NOTE | 2021-07-17 02:38 | ED Psychosocial ---
General Chief Complaint: Suicidal Ideation Risk Stated Complaint: SUICIDAL Nursing Triage Note: TO ED VIA [facility] FROM HOME CALLED BY MANE GOLDSTEIN. PT STATES SHE CUT RIGHT BICEP AREA WITH SHALLOW CUTS FOR "RELEASE". SUICIDAL THOUGHTS WITH INTENT TO SLIT WRISTS. PT STATES MUSIC STOPS THE URGE TO ACT ON PLAN. PT HAS HAD RECENT RELATIONSHIP BREAKUP, BUT NOTHING NEW OR SPECIFIC TRANSPIRED TONIGHT. HAS HAD MX SUICIDE ATTEMPTS IN THE PAST INCLUDING ATTEMPTED HANGING, OVERDOSE, AND ATTEMPT AT SHOOTING HERSELF. ALSO HAS HAD RECENT "TELEPATHIC HALLUCINATIONS". Source: patient, EMS, old records Exam Limitations: no limitations (JOHN LEE MD) History of Present Illness Date Seen by Provider: Jul 17, 2021 Time Seen by Provider: 00:39 Initial Comments This 41-year-old young lady presents to the emergency room via EMS with complaints of suicidal ideation. She reports 2 triggers including a break-up with her significant other over the past weekend and increased hallucinations of a "shadow figure" that speaks to her and encourages her to harm herself. Lyly antwan seems to have good insight into the nature of these hallucinations in the reality that they are hallucinations. She has a long history of psychiatric issues including prior suicide attempts by reported attempts at hanging, shooting, and overdose. She reports having prior admissions at [facility] in [place] as well as a [facility] in [place]. She has rec ently been performing release cutting on her right shoulder. She states her plan for self-harm at this time would be to cut her wrist. She has numerous very shallow lacerations on the right shoulder that are not bleeding at this time. She takes numerous psychiatric medications. She is not on an antipsychotic at this time and states that her previous use of antipsychotics induced diabetes and weight gain and cites those reasons for discontinuing them. Patient states her current medications include Intuniv, Strattera, trazodone, prazosin, Synthroid, Protonix, Tresiba, NovoLog, Ozempic, resulting, Jardiance, Lipitor, and Depakote. She denies alcohol use but admits to THC use. (JOHN LEE MD) Allergies and Home Medications Allergies Coded Allergies: amoxicillin (Unverified Allergy, Severe, sob, rash, 11/01/10) Penicillins (Verified Adverse Reaction, Severe, RASH, 12/14/05) cefuroxime (Verified Adverse Reaction, Severe, RASH, 12/14/05) clarithromycin (Unverified Adverse Reaction, Mild, nausea and dizziness, 02/07/14) Patient Home Medication List Home Medication List Reviewed: Yes (JOHN LEE MD) Home Medication List Reviewed: Yes (IVORY DICKSON) Albuterol Sulfate (Ventolin Hfa) 18 Gm Hfa.aer.ad, 2 PUFF IH Q6H PRN for SHORTNESS OF BREATH, (Reported) Entered as Reported by: SHELBY RING on 01/29/18 172 Aripiprazole (Aripiprazole) 2 Mg Tablet, 2 MG PO DAILY, (Reported) Entered as Reported by: SHELBY RING on 01/29/18 173 Atomoxetine HCl (Atomoxetine HCl) 40 Mg Capsule, (Reported) Entered as Reported by: EVA CORNELIUS on 04/04/20 0017 Cyproheptadine HCl (Cyproheptadine HCl) 4 Mg Tablet, (Reported) Entered as Reported by: EVA CORNELIUS on 05/03/18 011 Guanfacine HCl (Guanfacine HCl ER) 1 Mg Tab.er.24h, 1 MG PO HS, (Reported) Entered as Reported by: SHELBY RING on 01/29/181726 Insulin Aspart (Novolog Flexpen) 300 Units/3 Ml Solution, 25 UNITS SQ AC, (Reported) Entered as Reported by: SHELBY RING on 01/29/181835 Insulin Detemir (Levemir Flextouch) 100 Unit/1 Ml Insuln.pen, 67 UNITS SQ HS, (Reported) Entered as Reported by: SHELBY RING on 01/29/18 183 L. Acidophilus/Pectin, Ch[place]ter (Acidophilus Capsule) 1 Each Capsule, 2 EACH PO QID Prescribed by: GAURANG STANTON on 11/14/20 0411 Levothyroxine Sodium (Synthroid) 75 Mcg Tablet, (Reported) Entered as Reported by: EVA CORNELIUS on 05/03/18 011 Lorazepam (Lorazepam) 1 Mg Tablet, 1 MG PO DAILY PRN for ANXIETY, (Reported) Entered as Reported by: SHELBY RING on 01/29/181726 Meclizine HCl (Meclizine HCl) 25 Mg Tablet, 50 MG PO Q6 PRN for DIZZINESS Prescribed by: GAURANG STANTON on 11/14/20 0411 Metformin HCl (Metformin HCl) 1,000 Mg Tablet, 1,000 MG PO BID, (Reported) Entered as Reported by: SHELBY RING on 01/29/18 172 Ondansetron (Ondansetron Odt) 4 Mg Tab.rapdis, 4 MG PO Q4H PRN for NAUSEA/VOMITING Prescribed by: JOHN ARTEAGA on 11/13/18 0509 Oxcarbazepine (Oxcarbazepine) 600 Mg Tablet, (Reported) Entered as Reported by: EVA CORNELIUS on 05/03/18 011 Paliperidone (Paliperidone ER) 6 Mg Tab.er.24, (Reported) Entered as Reported by: EVA CORNELIUS on 04/04/2016 Pantoprazole Sodium (Pantoprazole Sodium) 40 Mg Tablet.dr, (Reported) Entered as Reported by: EVA CORNELIUS on 04/04/2016 Prazosin HCl (Prazosin HCl) 1 Mg Capsule, (Reported) Entered as Reported by: EVA CORNELIUS on 04/04/2016 Quetiapine Fumarate (Quetiapine Fumarate) 200 Mg Tablet, 200 MG PO HS, (Reported) Entered as Reported by: SHELBY RING on 01/29/18 172 Topiramate (Topiramate) 100 Mg Tablet, 150 MG PO BID, (Reported) Entered as Reported by: SHELBY RING on 01/29/18 173 Vortioxetine Hydrobromide (Trintellix) 20 Mg Tablet, (Reported) Entered as Reported by: EVA CORNELIUS on 05/03/18109 Review of Systems Constitutional: no symptoms reported EENTM: no symptoms reported Respiratory: no symptoms reported Cardiovascular: no symptoms reported Gastrointestinal: no symptoms reported Genitourinary: no symptoms reported : No Musculoskeletal: no symptoms reported Skin: no symptoms reported Psychiatric/Neurological: See HPI (JOHN LEE MD) Past Tyourew-Zntxes-Fxfciq Hx Patient Social History Tobacco Use?: Yes Tobacco type used: Cigarettes Smoking Status: Current Everyday Smoker Substance use?: Yes Additional substance use comme: DELTA 8 THC Alcohol Use?: No (JOHN LEE MD) Immunizations Up To Date Tetanus Booster (TDap): Less than 5yrs Second COVID19 Vaccination Stepan: DECEMBER 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: [place] (JOHN LEE MD) Seasonal Allergies Seasonal Allergies: Yes (JOHN LEE MD) Past Medical History Surgery/Hospitalization HX: TYPE 2 DM HYPOTHYROID ADHD SCHIZOEFFECTIVE DISORDER Surgeries: Yes (EGD, RIGHT HIP SURGERY CHILD FOR UNKNOWN REASON; EYE SURGERY) Appendectomy, Eye Surgery, Gallbladder, Orthopedic Respiratory: No Cardiac: Yes High Cholesterol Neurological: Yes Headaches /Migraines Reproductive Disorders: No Female Reproductive Disorders: Denies Sexually Transmitted Disease: No HIV/AIDS: No Genitourinary: Yes UTI-Chronic Gastrointestinal: Yes Gastroesophageal Reflux Musculoskeletal: Yes (RIGHT HIP SURGERY CHILD FOR UNKNOWN REASON) Endocrine: Yes (INSULIN + ORAL MEDICATIONS; OBESITY) Diabetes, Insulin dep, Hypothyroidsim HEENT: No Loss of Vision: Bilateral Hearing Impairment: Denies Cancer: No Psychosocial: Yes (EXTENSIVE PSYCH ISSUES WITH MULTIPLE PSYCH ADMITS) ADD/ADHD, Anxiety, Suicide Attempts, Bipolar, Personality Disorder, Schizophrenia (Schizoaffective), Depression Integumentary: No Blood Disorders: No (JOHN LEE MD) Family Medical History Family history: Allergy 03 MOTHER 09 BROTHER Family history: Arthritis 03 MOTHER Family history: Asthma 09 BROTHER 09 SISTER Family history: Cardiovascular disease 03 FATHER ("TAKES MEDICATION FOR HIS HEART") Family history: Diabetes mellitus 03 FATHER Family history: Hypertension 03 MOTHER Hypercholesterolemia 03 MOTHER Psychosocial problem 09 SISTER (DEPRESSION) Psychotic disorder 09 SISTER (ANXIETY) No Family History of: Abdominal aortic aneurysm Zenon's disease Alcoholism Aphasia Cancer Cancer of colon Cataract Chest pain Congenital heart disease Congestive heart failure Cystic fibrosis Dementia Dysphagia Family history: Alzheimer's disease Family history: Breast disease Family history: Coronary thrombosis Family history: Gastrointestinal disease Family history: Glaucoma Family history: Osteoporosis Family history: Thyroid disorder Headache Hearing loss Heart disease Hereditary disease History of - anemia History of - disorder History of - respiratory disease History of drug abuse Human immunodeficiency virus (HIV) seropositivity Infertile Kidney disease Malignant neoplasm of lung Myocardial infarction Parkinson's disease Prostate cancer Seizure disorder Stroke Tuberculosis Visual impairment No Pertinent Family Hx SOCIAL HISTORY: -ETOH--RARELY USES -DRUGS-DENIES USE -SMOKES 1 PPD (JOHN LEE MD) Physical Exam Vital Signs - First Documented 07/17/21 00:38 Temp 36.0 Pulse 111 Resp 16 B/P (MAP) 132/93 (106) Pulse Ox 99 O2 Delivery Room Air (MARIA ISABEL PATIÑO MD) Capillary Refill : Less Than 3 Seconds (JOHN LEE MD) Height, Weight, BMI Height: 5'6.00" Weight: 192lbs. 0oz. [id number]; 30.00 BMI Method:Stated General Appearance: WD/WN, no apparent distress HEENT: PERRL/EOMI, normal ENT inspection, other (Oropharynx somewhat dry) Neck: normal inspection Respiratory: lungs clear, normal breath sounds, no respiratory distress Cardiovascular: regular rate, rhythm, no edema, no murmur Gastrointestinal: normal bowel sounds, non tender, soft Extremities: no pedal edema, other (Shallow lacerations on the right shoulder) Neurologic/Psychiatric: rug clipper II-XII nml as tested, no motor/sensory deficits, alert, oriented x 3 Appearance/Memory: appropriate appearance, appropriate insight Behavior/Eye Contact: cooperative, good eye contact Thoughts/Hallucinations: auditory hallucinations, visual hallucinations, other (Suicidal ideation with plan to cut her wrist) Skin: normal color, warm/dry, other (Shallow lacerations on the right shoulder) (JOHN LEE MD) Progress/Results/Core Measures Results/Orders Lab Results Laboratory Tests Test 07/17/21 00:56 07/17/21 01:03 07/17/21 07:33 Range/Units White Blood Count 11.2 H 4.3-11.0 10^3/uL Red Blood Count 4.86 3.80-5.11 10^6/uL Hemoglobin 14.8 11.5-16.0 g/dL Hematocrit 44 35-52 % Mean Corpuscular Volume 90 80-99 fL Mean Corpuscular Hemoglobin 31 25-34 pg Mean Corpuscular Hemoglobin Concent 34 32-36 g/dL Red Cell Distribution Width 12.6 10.0-14.5 % Platelet Count 246 130-400 10^3/uL Mean Platelet Volume 10.5 9.0-12.2 fL Immature Granulocyte % (Auto) 0 % Neutrophils (%) (Auto) 58 42-75 % Lymphocytes (%) (Auto) 27 12-44 % Monocytes (%) (Auto) 10 0-12 % Eosinophils (%) (Auto) 4 0-10 % Basophils (%) (Auto) 1 0-10 % Neutrophils # (Auto) 6.5 1.8-7.8 10^3/uL Lymphocytes # (Auto) 3.0 1.0-4.0 10^3/uL Monocytes # (Auto) 1.1 H 0.0-1.0 10^3/uL Eosinophils # (Auto) 0.5 H 0.0-0.3 10^3/uL Basophils # (Auto) 0.1 0.0-0.1 10^3/uL Immature Granulocyte # (Auto) 0.1 0.0-0.1 10^3/uL Sodium Level 140 135-145 MMOL/L Potassium Level 3.8 3.6-5.0 MMOL/L Chloride Level 104 98-107 MMOL/L Carbon Dioxide Level 23 21-32 MMOL/L Anion Gap 13 5-14 MMOL/L Blood Urea Nitrogen 19 H 7-18 MG/DL Creatinine 0.82 0.60-1.30 MG/DL Estimat Glomerular Filtration Rate 77 BUN/Creatinine Ratio 23 Glucose Level 182 H 70-105 MG/DL Calcium Level 9.8 8.5-10.1 MG/DL Corrected Calcium 9.6 8.5-10.1 MG/DL Total Bilirubin 0.5 0.1-1.0 MG/DL Aspartate Amino Transf (AST/SGOT) 15 5-34 U/L Alanine Aminotransferase (ALT/SGPT) 18 0-55 U/L Alkaline Phosphatase 101 40-136 U/L Total Protein 7.2 6.4-8.2 GM/DL Albumin 4.2 3.2-4.5 GM/DL Thyroid Stimulating Hormone (TSH) 3.61 0.35-4.94 UIU/ML Free Thyroxine 0.94 0.70-1.48 NG/DL Salicylates Level < 5.0 L 5.0-20.0 MG/DL Acetaminophen Level < 10 L 10-30 UG/ML Valproic Acid (Depakene) Level 38.0 L 50.0-100.0 UG/ML Serum Alcohol < 10 <10 MG/DL Urine Color YELLOW Urine Clarity SL CLOUDY Urine pH 6.0 5-9 Urine Specific [place] 1.020 1.016-1.022 Urine Protein NEGATIVE NEGATIVE Urine Glucose (UA) 3+ H NEGATIVE Urine Ketones 1+ H NEGATIVE Urine Nitrite NEGATIVE NEGATIVE Urine Bilirubin NEGATIVE NEGATIVE Urine Urobilinogen 0.2 < = 1.0 MG/DL Urine Leukocyte Esterase NEGATIVE NEGATIVE Urine RBC (Auto) TRACE-I NEGATIVE Urine RBC 2-5 H /HPF Urine WBC 5-10 H /HPF Urine Squamous Epithelial Cells 2-5 /HPF Urine Crystals NONE /LPF Urine Bacteria FEW H /HPF Urine Casts NONE /LPF Urine Mucus NEGATIVE /LPF Urine Culture Indicated YES Urine Opiates Screen NEGATIVE NEGATIVE Urine Oxycodone Screen NEGATIVE NEGATIVE Urine Methadone Screen NEGATIVE NEGATIVE Urine Propoxyphene Screen NEGATIVE NEGATIVE Urine Barbiturates Screen NEGATIVE NEGATIVE Ur Tricyclic Antidepressants Screen NEGATIVE NEGATIVE Urine Phencyclidine Screen NEGATIVE NEGATIVE Urine Amphetamines Screen NEGATIVE NEGATIVE Urine Methamphetamines Screen NEGATIVE NEGATIVE Urine Benzodiazepines Screen NEGATIVE NEGATIVE Urine Cocaine Screen NEGATIVE NEGATIVE Urine Cannabinoids Screen POSITIVE H NEGATIVE SARS-CoV-2 RNA (RT-PCR) Not Detected Not Detecte (MARIA ISABEL PATIÑO MD) My Orders Orders - MARIA ISABEL PATIÑO MD Covid 19 Inhouse Test (07/17/21 07:31) General/Regular (07/17/21 Lunch) Ekg Tracing (07/17/21 15:01) (MARIA ISABEL PATIÑO MD) Medications Given in ED (MARIA ISABEL PATIÑO MD) Vital Signs/I&O (MARIA ISABEL PATIÑO MD) Blood Pressure Mean: 106 Progress Progress Note #1: Time: 02:31 Progress Note Zyprexa 5 mg sublingual was administered for treatment of patient's hallucinations as they seem to be contributing to her suicidal ideation. A couple of medical issues did emerge in the patient's medical work-up. She has some suggestion of urinary tract infection on her urinalysis. This can be treated with antibiotics. Also, her valproic acid level is a bit low. We can adjust her valproic acid dose to help with mood. She reports the Zyprexa did improve her hallucinations somewhat but she is still seeing the "shadow figures" and hearing auditory hallucinations. She reports living alone but having other support services in the community. She states she would feel comfortable with a safety plan and would feel safe although she is still feeling suicidal at this time. She would also be compliant with admission if this was recommended by a behavioral health screener. She does not have a ride to her home at this point in time if she were to be dismissed. Patient seems to have excellent insight and knows her resources, medications, and condition well. Progress Note #2: Time: 03:21 Progress Note Behavioral health screening is pending. We will wait for the disposition determination by the screener before determining whether to use a rapid Covid screen on her. Macrobid is being given for urinary tract infection. Tetanus booster is being administered for the lacerations on her shoulder. Lacerations are shallow and do not require any repair. Urine test was negative. (JOHN LEE MD) Progress Note : Progress Note I received this patient in signout, and at that time she was just awaiting mental health screening. Screening COVID test performed and is negative. The psych screener recommended inpatient and she does have a facility that will take her. Work-up has been unremarkable and I believe it is appropriate for her to be discharged to the mental health institution. (MARIA ISABEL PATIÑO MD) Departure Impression Primary Impression: SUICIDAL IDEATION Additional Impressions: Hallucinations Deliberate self-cutting Urinary tract infection Qualified Codes: N39.0 - Urinary tract infection, site not specified Disposition: 02 XFER SHT-TRM HOSP Condition: Stable Transfer Transfer Reason: Exceeds level of care Time Spoke to Accepting Phy: 18:22 Transfer Progress Notes Spoke to [facility] for Doc to doc and they accepted as a psych admission. Transfer Facility: [facility] (MARIA ISABEL PATIÑO MD) Transfer Reason: Exceeds level of care (No Inpt Psych) Transfer Progress Notes Dr Velez Accepting. [facility] provide secure psych transport around 2029. Method of Transfer: Private Vehicle ([facility]) (IVORY DICKSON) Departure-Patient Inst. [facility] (PCP[facility]Family) Primary Care Physician Patient Instructions: OUTPT MENTAL HEALTH SERVICES JOHN LEE MD Jul 17, 2021 02:38 MARIA ISABEL PATIÑO MD Jul 17, 2021 11:17 IVORY DICKSON Jul 17, 2021 19:33
[2021-07-17] MEDS ORDERED: NITROFURANTOIN 100 MG (MACROBID) CAPSULE PO STA (03:14)
[2021-07-17] MEDS ORDERED: TETANUS,DIPTH,PERTUSS P/F (BOOSTRIX) 0.5 ML VIAL IM ONE (03:15)
[2021-07-17 20:38] VITALS: BP 117/83
== END 2021-07-17 20:38 | disposition short-term general hospital (02) ==
LOC: EDUNIT# 00:38 → ER 00:39
DX: R45.851 Suicidal ideations (principal); R44.3 Hallucinations, unspecified; N39.0 Urinary tract infection, site not specified
CPT/HCPCS: 80053; 80164; 80306; 81000; 84439; 84443; 84703; 85025; 87088; 87636; 90471; 93005; 99283; G0480 ×3; 36415; 80320; 80329; 90715

== ENCOUNTER 2021-08-20 09:42 | Emergency (ER) | payer MEDICARE, MEDICAID ==
[~2021-08-20] VITALS: Ht 167.7 cm; Wt 81.6 kg
[~2021-08-20 09:42] MED LIST changes: +ACHD5005 PO
--- NOTE | 2021-08-20 10:44 | ED Back Pain ---
General Chief Complaint: Back Problems Stated Complaint: R LEG PAIN Nursing Triage Note: PT AMB TO [facility] USING A WALKER WITH COMPLAINT OF LOW BACK PAIN THAT RADIATES DOWN RIGHT LEG. STATES WENT TO CHIROPRACTOR TODAY WHO INSTRUCTED HER TO COME TO ER FOR FURTHER EVALUATION AND MRI OR XRAYS. PT WAS SEEN ON 08/16 IN THE ER FOR SAME COMPLAINTS. STATES HYDROCODONES AND FLEXERIL ARE NOT HELPING PAIN. Source of Information: Patient Exam Limitations: No Limitations History of Present Illness Date Seen by Provider: Aug 20, 2021 Time Seen by Provider: 10:26 Initial Comments Patient to the ER by private conveyance with her mother and chief complaint of back pain with sciatica extension down her right posterior thigh about intermediate to her knee. Occasionally she gets some paresthesias down to her heel on the right side. This is been going on for about 2 months now. She has been using topical creams, hydrocodone, she did a course of prednisone about 2 weeks ago for 5 days. She follows with Ethan Wing at [facility] and her next appointment is in about 5 days on August 25. She is not having saddle anesthesia, loss of control of bowels or bladder, falls or weakness. She did have a fall last night while getting into the bathtub. She is using a walker to ambulate. She saw the chiropractor today and they recommended she come to the ER to get an MRI of her back. She has had imaging of her back in the past under the care of Dr. Ryan although she does not recall what kind of imaging it was. A review of the records indicates in 2015 she had an MRI of her lumbar spine michelle wing an L5-S1 small right paracentral disc protrusion/herniation with annular tear which closely abuts the nonexited right S1 nerve root. Degenerative changes at the L5-S1 region. She has an appointment to start physical therapy through September 14, little over 3 weeks from now. She has been having some constipation due to the hydrocodone and not using anything for the constipation. She did have a bowel movement today. Allergies and Home Medications Allergies Coded Allergies: amoxicillin (Unverified Allergy, Severe, sob, rash, 11/01/10) clindamycin (Verified Allergy, Unknown, 08/16/21) Penicillins (Verified Adverse Reaction, Severe, RASH, 12/14/05) cefuroxime (Verified Adverse Reaction, Severe, RASH, 12/14/05) clarithromycin (Unverified Adverse Reaction, Mild, nausea and dizziness, 02/07/14) Patient Home Medication List Home Medication List Reviewed: Yes Albuterol Sulfate (Ventolin Hfa) 18 Gm Hfa.aer.ad, 2 PUFF IH Q6H PRN for SHORTNESS OF BREATH, (Reported) Entered as Reported by: SHELBY RING on 01/29/18 172 Aripiprazole (Aripiprazole) 2 Mg Tablet, 2 MG PO DAILY, (Reported) Entered as Reported by: SHELBY RING on 01/29/18 173 Atomoxetine HCl (Atomoxetine HCl) 40 Mg Capsule, (Reported) Entered as Reported by: EVA CORNELIUS on 04/04/20 001 Cyclobenzaprine HCl (Cyclobenzaprine HCl) 10 Mg Tablet, 10 MG PO Q8H PRN for SPASMS Prescribed by: ELIAS COFFMAN on 08/16/21 1047 Cyproheptadine HCl (Cyproheptadine HCl) 4 Mg Tablet, (Reported) Entered as Reported by: EVA CORNELIUS on 05/03/18 011 Guanfacine HCl (Guanfacine HCl ER) 1 Mg Tab.er.24h, 1 MG PO HS, (Reported) Entered as Reported by: SHELBY RING on 01/29/181726 Hydrocodone/Acetaminophen (Hydrocodone-Acetamin 5-325 mg) 1 Each Tablet, 1 TAB PO Q4H PRN for PAIN-MODERATE (5-7) Prescribed by: ELIAS COFFMAN on 08/16/21 104 Insulin Aspart (Novolog Flexpen) 300 Units/3 Ml Solution, 25 UNITS SQ AC, (Reported) Entered as Reported by: SHELBY RING on 01/29/181835 Insulin Detemir (Levemir Flextouch) 100 Unit/1 Ml Insuln.pen, 67 UNITS SQ HS, (Reported) Entered as Reported by: SHELBY RING on 01/29/181835 L. Acidophilus/Pectin, Harri[place] (Acidophilus Capsule) 1 Each Capsule, 2 EACH PO QID Prescribed by: GAURANG STANTON on 11/14/20 0411 Levothyroxine Sodium (Synthroid) 75 Mcg Tablet, (Reported) Entered as Reported by: EVA CORNELIUS on 05/03/18 011 Lorazepam (Lorazepam) 1 Mg Tablet, 1 MG PO DAILY PRN for ANXIETY, (Reported) Entered as Reported by: SHELBY RING on 01/29/181726 Meclizine HCl (Meclizine HCl) 25 Mg Tablet, 50 MG PO Q6 PRN for DIZZINESS Prescribed by: GAURANG STANTON on 11/14/20 0411 Metformin HCl (Metformin HCl) 1,000 Mg Tablet, 1,000 MG PO BID, (Reported) Entered as Reported by: SHELBY RING on 01/29/181726 Ondansetron (Ondansetron Odt) 4 Mg Tab.rapdis, 4 MG PO Q4H PRN for NAUSEA/VOMITING Prescribed by: JOHN ARTEAGA on 11/13/18 0509 Oxcarbazepine (Oxcarbazepine) 600 Mg Tablet, (Reported) Entered as Reported by: EVA CORNELIUS on 05/03/18109 Paliperidone (Paliperidone ER) 6 Mg Tab.er.24, (Reported) Entered as Reported by: EVA CORNELIUS on 04/04/2016 Pantoprazole Sodium (Pantoprazole Sodium) 40 Mg Tablet.dr, (Reported) Entered as Reported by: EVA CORNELIUS on 04/04/2016 Prazosin HCl (Prazosin HCl) 1 Mg Capsule, (Reported) Entered as Reported by: EVA CORNELIUS on 04/04/2016 Quetiapine Fumarate (Quetiapine Fumarate) 200 Mg Tablet, 200 MG PO HS, (Reported) Entered as Reported by: SHELBY RING on 01/29/18 172 Topiramate (Topiramate) 100 Mg Tablet, 150 MG PO BID, (Reported) Entered as Reported by: SHELBY RING on 01/29/18 173 Vortioxetine Hydrobromide (Trintellix) 20 Mg Tablet, (Reported) Entered as Reported by: EVA CORNELIUS on 05/03/18109 Review of Systems Constitutional: No chills, No diaphoresis EENTM: No ear discharge, No ear pain Respiratory: No cough, No short of breath Cardiovascular: No chest pain, No palpitations Gastrointestinal: No abdominal pain, No constipation, No nausea, No vomiting Genitourinary: No discharge, No dysuria Musculoskeletal: back pain; No joint pain All Other Systems Reviewed Negative Unless Noted: Yes Past Kprlifx-Hlhsxy-Lsycfd Hx Patient Social History Tobacco Use?: Yes Tobacco type used: Cigarettes Smoking Status: Current Everyday Smoker Use of E-Cig and/or Vaping dev: No Substance use?: No Alcohol Use?: No Pt feels they are or have been: No Immunizations Up To Date Tetanus Booster (TDap): Less than 5yrs First/Initial COVID19 Vaccinat: December COVID19 Vaccination Stepan: January COVID19 Vaccination Date: MODERNA Seasonal Allergies Seasonal Allergies: Yes Past Medical History Surgery/Hospitalization HX: TYPE 2 DM HYPOTHYROID ADHD SCHIZOEFFECTIVE DISORDER APPENDECTOMY CHOLECYSTECTOMY Surgeries: Yes (EGD, RIGHT HIP SURGERY CHILD FOR UNKNOWN REASON; EYE SURGERY) Appendectomy, Eye Surgery, Gallbladder, Orthopedic Respiratory: No Cardiac: Yes High Cholesterol Neurological: Yes Headaches /Migraines Reproductive Disorders: No Female Reproductive Disorders: Denies Sexually Transmitted Disease: No HIV/AIDS: No Genitourinary: Yes UTI-Chronic Gastrointestinal: Yes Gastroesophageal Reflux Musculoskeletal: Yes (RIGHT HIP SURGERY CHILD FOR UNKNOWN REASON) Endocrine: Yes (INSULIN + ORAL MEDICATIONS; OBESITY) Diabetes, Insulin dep, Hypothyroidsim HEENT: No Loss of Vision: Bilateral Hearing Impairment: Denies Cancer: No Psychosocial: Yes (EXTENSIVE PSYCH ISSUES WITH MULTIPLE PSYCH ADMITS) ADD/ADHD, Anxiety, Suicide Attempts, Bipolar, Personality Disorder, Schizophrenia, Depression Integumentary: No Blood Disorders: No Family Medical History Family history: Allergy 03 MOTHER 09 BROTHER Family history: Arthritis 03 MOTHER Family history: Asthma 09 BROTHER 09 SISTER Family history: Cardiovascular disease 03 FATHER ("TAKES MEDICATION FOR HIS HEART") Family history: Diabetes mellitus 03 FATHER Family history: Hypertension 03 MOTHER Hypercholesterolemia 03 MOTHER Psychosocial problem 09 SISTER (DEPRESSION) Psychotic disorder 09 SISTER (ANXIETY) No Family History of: Abdominal aortic aneurysm Zenon's disease Alcoholism Aphasia Cancer Cancer of colon Cataract Chest pain Congenital heart disease Congestive heart failure Cystic fibrosis Dementia Dysphagia Family history: Alzheimer's disease Family history: Breast disease Family history: Coronary thrombosis Family history: Gastrointestinal disease Family history: Glaucoma Family history: Osteoporosis Family history: Thyroid disorder Headache Hearing loss Heart disease Hereditary disease History of - anemia History of - disorder History of - respiratory disease History of drug abuse Human immunodeficiency virus (HIV) seropositivity Infertile Kidney disease Malignant neoplasm of lung Myocardial infarction Parkinson's disease Prostate cancer Seizure disorder Stroke Tuberculosis Visual impairment No Pertinent Family Hx SOCIAL HISTORY: -ETOH--RARELY USES -DRUGS-DENIES USE -SMOKES 1 PPD Physical Exam Vital Signs Vital Signs - First Documented 08/20/21 10:18 Pulse 134 Resp 22 B/P (MAP) 183/97 (125) Pulse Ox 96 O2 Delivery Room Air Capillary Refill : Less Than 3 Seconds Height, Weight, BMI Height: 5'6.00" Weight: 192lbs. 0oz. 87.182934dl; 29.00 BMI Method:Stated General Appearance: No Apparent Distress, WD/WN HEENT: PERRL/EOMI, Pharynx Normal, Moist Mucous Membranes Neck: Full Range of Motion, Normal Inspection Cardiovascular: Regular Rate, Rhythm, Normal Peripheral Pulses Respiratory: Lungs Clear, Normal Breath Sounds, No Accessory Muscle Use, No Respiratory Distress Gastrointestinal: Normal Bowel Sounds, No Organomegaly, Non Tender, Soft Back: Normal Inspection, No Vertebral Tenderness Extremity: Normal Capillary Refill, Normal Inspection Neurologic/Psychiatric: Alert, Oriented x3 Skin: Normal Color, Warm/Dry Procedures/Interventions Progress L5-S1 facet joint point tenderness injection. Use an admixture of 80 mg Depo- Medrol, 1% lidocaine with epinephrine 1 cc and 1 cc of half percent Marcaine without epinephrine. Using alcohol and chlorhexidine we cleaned the surface of the skin off and allowed to air dry. We then used Z track method and a 25-gauge 1-1/2 inch needle to access the L5-S1 facet joint and inject in and around the joint with the 3 cc admixture. Patient tolerated procedure well. No blood was aspirated on drawing back. Progress/Results/Core Measures Results/Orders My Orders Orders - IVORY DICKSON Methylprednisolone Acetate Inj (Depo-Med (08/20/21 10:45) Ketorolac Injection (Toradol Injection) (08/20/21 10:45) Bupivacaine 0.5% Injection (Sensorcaine (08/20/21 10:45) Medications Given in ED Current Medications Medications Dose Ordered Sig/Kiarra Route Start Time Stop Time Status Last Admin Dose Admin Bupivacaine HCl 30 ml ONCE ONCE INJ 08/20/21 10:45 08/20/21 10:46 DC 08/20/21 10:49 30 ML Ketorolac Tromethamine 60 mg ONCE ONCE IM 08/20/21 10:45 08/20/21 10:46 DC 08/20/21 10:49 60 MG Methylprednisolone Acetate 80 mg ONCE ONCE IM 08/20/21 10:45 10/28/21 10:46 DC 08/20/21 10:49 80 MG Vital Signs/I&O 08/20/21 10:18 Pulse 134 Resp 22 B/P (MAP) 183/97 (125) Pulse Ox 96 O2 Delivery Room Air Blood Pressure Mean: 125 Progress Progress Note : Time: 10:43 Progress Note Reviewed her prior imaging of her back. Offered to do a shot of Depo-Medrol, 80 mg and Marcaine with lidocaine with epinephrine at the point tenderness to see if this would help and encourage her to follow-up in the next 5 days with her primary care doctor to discuss the MRI imaging findings and possible referral on to orthopedics. Also recommend she contact some other physical therapist companies to see if she can get in sooner. The patient declined to produce a urine specimen for test. She is okay with the risk of using steroids. Last menstrual period was 1 month ago. She states she is not sexually active. Toradol 60 mg IM. Departure Impression Primary Impression: Lumbago with sciatica, right side Qualified Codes: M54.41 - Lumbago with sciatica, right side; G89.29 - Other chronic pain Disposition: HOME, SELF-CARE Condition: Stable Departure-Patient Inst. Decision time for Depature: 10:58 Referrals: [facility] [place] Primary Care Physician Patient Instructions: Sciatica (DC), Sciatica Exercises Add. Discharge Instructions: Review the handout on sciatica and exercises. Call physical therapy at [phone] and request no upfront cost evaluation to see if they can get you started sooner. Review your MRI from 2015 with your primary care doctor and keep your follow-up appointment on August 25. Return to the ER promptly if you are unable to stand due to weakness, persistent numbness between your legs, loss of control of bowel or bladder. Expect the steroids to kick in in about 1 to 2 days. They may cause a extra feeling of energy or feeling wired and difficulty sleeping. A tablet of Benadryl at night can sometimes help overcome the insomnia. Continue using Tylenol, ibuprofen, topical creams such as capsaicin oil. All discharge instructions reviewed with patient and/or family. Voiced understanding. IVORY DICKSON Aug 20, 2021 10:44
[2021-08-20] MEDS ORDERED: BUPIVACAINE 0.5% 30 ML (SENSORCAINE) VIAL INJ ONE (10:45)
[2021-08-20] MEDS ORDERED: KETOROLAC 60 MG/2 ML VIAL IM ONE (10:45)
[2021-08-20] MEDS ORDERED: methylPREDNISolone 80 MG/ML (DEPO MEDROL) VIAL IM ONE (10:45)
[2021-08-20 11:13] VITALS: BP 148/127
== END 2021-08-20 11:13 | disposition home or self-care (01) ==
LOC: EDUNIT# 09:42 → ER 09:43
DX: M54.41 Lumbago with sciatica, right side (principal); E11.9 Type 2 diabetes mellitus without complications; K21.9 Gastro-esophageal reflux disease without esophagitis; F20.9 Schizophrenia, unspecified; F31.9 Bipolar disorder, unspecified; F41.9 Anxiety disorder, unspecified; E03.9 Hypothyroidism, unspecified; F17.210 Nicotine dependence, cigarettes, uncomplicated; Z79.899 Other long term (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; Z79.4 Long term (current) use of insulin; Z79.890 Hormone replacement therapy
CPT/HCPCS: 96372; 99284

== ENCOUNTER 2021-08-22 01:35 | Emergency (ER) | payer MEDICARE, MEDICAID ==
[~2021-08-22] VITALS: Ht 167.7 cm; Wt 75.0 kg
--- NOTE | 2021-08-22 01:44 | ED Back Pain ---
General Stated Complaint: BACK PAIN Source of Information: Patient (GIVES MUCH INCONSISTENT INFORMATION), EMS, Old Records History of Present Illness Date Seen by Provider: Aug 22, 2021 Time Seen by Provider: 01:43 Initial Comments PT ARRIVES VIA EMS FROM HOME C/O SCIATICA PAIN THIS IS ONGOING PROBLEM FOR AT LEAST 2 MONTHS, WITH LONG HISTORY OF SAME OFF AND ON FOR YEARS C/O LOWER BACK PAIN RADIATING DOWN RIGHT POSTERIOR THIGH, DOWN TO HER KNEE NO PARESTHESIAS OR MOTOR DEFICITS NO SADDLE ANESTHESIA NO LOSS OF BOWEL OR BLADDER FUNCTION DENIES ANY RECENT INJURY PT WAS SEEN HERE 08/16/21 FOR THIS PROBLEM AND PRESCRIBED HYDROCODONE AND FLEXERIL PT WAS ALSO SEEN HERE 08/20/21 FOR SAME AND HAD A FACET INJECTION AT L5-S1 PT HAS NOT SEEN ANYONE AT [facility] FOR THIS, HAS AN APPOINTMENT 08/25/21 FOR THIS PROBLEM, 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 PT CLAIMS SHE LIVES ALONE, BUT HER ROOM MATE WAS AT THE [facility] AND LET EMS STAFF IN PT CLAIMS SHE "HASN'T BEEN OUT OF BED FOR 2 DAYS" BECAUSE OF PAIN--YET WAS HERE ON 08/20/21--STATES SHE DIDN'T KNOW SHE WAS HERE PT ALSO CLAIMS SHE HAS NOT TAKEN ANY MEDICATIONS FOR THE LAST 2 DAYS "BECAUSE I COULDN'T REACH THEM" --YET SHE ALSO STATES THAT SHE HAS BEEN TAKING "DELTA 8" WHICH SHE STATES IS SOMETHING WITH THC IN IT, WHICH SHE KEEPS IN THE BATHROOM AND HAD TO "CRAWL" TO THE BATHROOM TO GET, BUT AT THE SAME TIME CLAIMS SHE COULD NOT GET OUT OF BED TO USE THE BATHROOM FOR THE LAST 2 DAYS AND COULD NOT GET TO HER MEDICATIONS FOR THE LAST 2 DAYS BECAUSE SHE COULD NOT GET OUT OF BED PT STATES SOMEONE HAS BEEN GETTING FOOD FOR HER, BUT GIVES NO EXCUSE TO WHY HER FRIEND/ROOM MATE COULD NOT GET HER MEDICATIONS FOR HER. EMS REPORT THAT PT WAS IN THE BATHROOM WHEN THEY ARRIVED, AND PT WAS ABLE TO AMBULATE 8-10 STEPS FROM THERE TO EMS COT. PT IS INSULIN DEPENDENT DIABETIC --MULTIPLE ADMITS FOR DKA MULTITUDE OF VISITS FOR VARIOUS COMPLAINTS HAS LONG HISTORY OF NON-COMPLIANCE Allergies and Home Medications Allergies Coded Allergies: amoxicillin (Unverified Allergy, Severe, sob, rash, 11/01/10) clindamycin (Verified Allergy, Unknown, 08/16/21) Penicillins (Verified Adverse Reaction, Severe, RASH, 12/14/05) cefuroxime (Verified Adverse Reaction, Severe, RASH, 12/14/05) clarithromycin (Unverified Adverse Reaction, Mild, nausea and dizziness, 02/07/14) Patient Home Medication List Home Medication List Reviewed: Yes Albuterol Sulfate (Ventolin Hfa) 18 Gm Hfa.aer.ad, 2 PUFF IH Q6H PRN for SHORTNESS OF BREATH, (Reported) Entered as Reported by: SHELBY RING on 01/29/18 172 Aripiprazole (Aripiprazole) 2 Mg Tablet, 2 MG PO DAILY, (Reported) Entered as Reported by: SHELBY RING on 01/29/18 173 Atomoxetine HCl (Atomoxetine HCl) 40 Mg Capsule, (Reported) Entered as Reported by: EVA CORNELIUS on 04/04/20 0017 Cyclobenzaprine HCl (Cyclobenzaprine HCl) 10 Mg Tablet, 10 MG PO Q8H PRN for SPASMS Prescribed by: ELIAS COFFMAN on 08/16/21 1047 Cyproheptadine HCl (Cyproheptadine HCl) 4 Mg Tablet, (Reported) Entered as Reported by: EVA CORNELIUS on 05/03/18 0110 Guanfacine HCl (Guanfacine HCl ER) 1 Mg Tab.er.24h, 1 MG PO HS, (Reported) Entered as Reported by: SHELBY RING on 01/29/18 172 Hydrocodone/Acetaminophen (Hydrocodone-Acetamin 5-325 mg) 1 Each Tablet, 1 TAB PO Q4H PRN for PAIN-MODERATE (5-7) Prescribed by: ELIAS COFFMAN on 08/16/21 104 Insulin Aspart (Novolog Flexpen) 300 Units/3 Ml Solution, 25 UNITS SQ AC, (Reported) Entered as Reported by: SHELBY RING on 01/29/18 183 Insulin Detemir (Levemir Flextouch) 100 Unit/1 Ml Insuln.pen, 67 UNITS SQ HS, (Reported) Entered as Reported by: SHELBY RING on 01/29/181835 Ketorolac Tromethamine (Ketorolac Tromethamine) 10 Mg Tablet, 10 MG PO Q6H Prescribed by: GAURANG STANTON on 08/22/21 0257 L. Acidophilus/Pectin, [place] (Acidophilus Capsule) 1 Each Capsule, 2 EACH PO QID Prescribed by: GAURANG STANTON on 11/14/20 041 Levothyroxine Sodium (Synthroid) 75 Mcg Tablet, (Reported) Entered as Reported by: EVA CORNELIUS on 05/03/18 0110 Lorazepam (Lorazepam) 1 Mg Tablet, 1 MG PO DAILY PRN for ANXIETY, (Reported) Entered as Reported by: SHELBY RING on 01/29/18 172 Meclizine HCl (Meclizine HCl) 25 Mg Tablet, 50 MG PO Q6 PRN for DIZZINESS Prescribed by: GAURANG STANTON on 11/14/20410 Metformin HCl (Metformin HCl) 1,000 Mg Tablet, 1,000 MG PO BID, (Reported) Entered as Reported by: SHELBY RING on 01/29/181726 Nitrofurantoin Monohyd/M-Cryst (Macrobid 100 mg Capsule) 100 Mg Capsule, 1 TAB PO BID Prescribed by: GAURANG STANTON on 08/22/21 031 Ondansetron (Ondansetron Odt) 4 Mg Tab.rapdis, 4 MG PO Q4H PRN for NAUSEA/VOMITING Prescribed by: JOHN ARTEAGA on 11/13/18 0509 Oxcarbazepine (Oxcarbazepine) 600 Mg Tablet, (Reported) Entered as Reported by: EVA CORNELIUS on 05/03/18 0110 Paliperidone (Paliperidone ER) 6 Mg Tab.er.24, (Reported) Entered as Reported by: EVA CORNELIUS on 04/04/2016 Pantoprazole Sodium (Pantoprazole Sodium) 40 Mg Tablet.dr, (Reported) Entered as Reported by: EVA CORNELIUS on 04/04/2016 Prazosin HCl (Prazosin HCl) 1 Mg Capsule, (Reported) Entered as Reported by: EVA CORNELIUS on 04/04/2016 Quetiapine Fumarate (Quetiapine Fumarate) 200 Mg Tablet, 200 MG PO HS, (Reported) Entered as Reported by: SHELBY RING on 01/29/18 172 Topiramate (Topiramate) 100 Mg Tablet, 150 MG PO BID, (Reported) Entered as Reported by: SHELBY RING on 01/29/18 173 Vortioxetine Hydrobromide (Trintellix) 20 Mg Tablet, (Reported) Entered as Reported by: EVA CORNELIUS on 05/03/18 0110 Review of Systems Constitutional: no symptoms reported Respiratory: no symptoms reported Cardiovascular: no symptoms reported Gastrointestinal: no symptoms reported Genitourinary: no symptoms reported Musculoskeletal: see HPI Skin: no symptoms reported Psychiatric/Neurological: No Symptoms Reported Past Kpaaswo-Gnfgoy-Jikkph Hx Patient Social History Tobacco Use?: Yes Tobacco type used: Cigarettes Smoking Status: Current Everyday Smoker Substance use?: Yes Substance type: Marijuana Alcohol Use?: Yes Alcohol type: Beer Past Medical History Surgeries: Yes Eye Surgery, Gallbladder, Orthopedic Respiratory: No Cardiac: Yes High Cholesterol Neurological: Yes Headaches /Migraines Female Reproductive Disorders: Denies Genitourinary: Yes UTI-Chronic Gastrointestinal: Yes Gastroesophageal Reflux Musculoskeletal: Yes (SCIATICA; RIGHT HIP SURGERY CHILD) Degenerate Disk Disease, Chronic Back Pain Endocrine: Yes (INSULIN + ORAL MEDICATIONS) Diabetes, Insulin dep HEENT: Yes (EYE SURGERY) Cancer: No Psychosocial: Yes (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) Anxiety, Suicide Attempts, Depression Family Medical History SOCIAL HISTORY: -SMOKES AT LEAST 1 PPD -DRUGS--MARIJUANA -ETOH--BEER ON REGULAR BASIS MRI LUMBAR SPINE 2016 IMPRESSION: 1: There is an L5-S1 small right paracentral disc protrusion/herniation with annular tear which closely abuts the non-exited right S1 nerve root. There is a small amount of Modic type I degenerative signal changes at the L5-S1 levels posteriorly. 2: There is mild T10-T11 bilateral facet arthropathy. Physical Exam Vital Signs Vital Signs - First Documented 08/22/21 01:44 Temp 36.8 Pulse 128 Resp 24 B/P (MAP) 157/118 (131) Pulse Ox 99 O2 Delivery Room Air Capillary Refill : Height, Weight, BMI Height: '" Weight: lbs. oz. kg; BMI Method: General Appearance: WD/WN, Other (PT FREELY MOVING BOTH LEGS, AND IS FULLY FLEXING AND FULLY EXTENDING RIGHT LEG WITHOUT DIFFICULTY. UNKEMPT. MOANING AND THRASHING ON ARRIVAL--THIS STOPS WHEN STAFF LEAVE ROOM. ) Cardiovascular: Regular Rate, Rhythm, No Edema, No Murmur, Normal Peripheral Pulses Respiratory: Normal Breath Sounds Peripheral Pulses: 2+ Dorsalis Pedis (R), 2+ Left Dors-Pedis (L) Gastrointestinal: Non Tender, Soft Back: No CVA Tenderness, Other (TENDERNESS OVER RIGHT SI JOINT AREA. NEGATIVE STRAIGHT LEG RAISING TEST) Extremity: Normal Capillary Refill, Normal Inspection, Normal Range of Motion, Non Tender, No Calf Tenderness, No Pedal Edema, Other (DTR'S 1/4 BILATERALLY. ) Neurologic/Psychiatric: Alert, Oriented x3, No Motor/Sensory Deficits, psychologist developmental II- XII Norm as Tested Skin: Normal Color, Warm/Dry; No Rash; Tattoos/Piercings Progress/Results/Core Measures Results/Orders Lab Results Laboratory Tests Test 08/22/21 02:11 08/22/21 02:28 08/22/21 02:45 08/22/21 03:29 Range/Units White Blood Count 16.4 H 4.3-11.0 10^3/uL Red Blood Count 4.88 3.80-5.11 10^6/uL Hemoglobin 14.7 11.5-16.0 g/dL Hematocrit 42 35-52 % Mean Corpuscular Volume 86 80-99 fL Mean Corpuscular Hemoglobin 30 25-34 pg Mean Corpuscular Hemoglobin Concent 35 32-36 g/dL Red Cell Distribution Width 11.9 10.0-14.5 % Platelet Count 295 130-400 10^3/uL Mean Platelet Volume 10.5 9.0-12.2 fL Immature Granulocyte % (Auto) 1 % Neutrophils (%) (Auto) 76 H 42-75 % Lymphocytes (%) (Auto) 16 12-44 % Monocytes (%) (Auto) 6 0-12 % Eosinophils (%) (Auto) 1 0-10 % Basophils (%) (Auto) 0 0-10 % Neutrophils # (Auto) 12.4 H 1.8-7.8 10^3/uL Lymphocytes # (Auto) 2.6 1.0-4.0 10^3/uL Monocytes # (Auto) 0.9 0.0-1.0 10^3/uL Eosinophils # (Auto) 0.2 0.0-0.3 10^3/uL Basophils # (Auto) 0.1 0.0-0.1 10^3/uL Immature Granulocyte # (Auto) 0.1 0.0-0.1 10^3/uL Neutrophils % (Manual) 79 % Lymphocytes % (Manual) 10 % Monocytes % (Manual) 9 % Band Neutrophils 2 % Blood Morphology Comment NORMAL Sodium Level 132 L 135-145 MMOL/L Potassium Level 4.5 3.6-5.0 MMOL/L Chloride Level 99 98-107 MMOL/L Carbon Dioxide Level 17 L 21-32 MMOL/L Anion Gap 16 H 5-14 MMOL/L Blood Urea Nitrogen 15 7-18 MG/DL Creatinine 1.03 0.60-1.30 MG/DL Estimat Glomerular Filtration Rate 59 BUN/Creatinine Ratio 15 Glucose Level 621 *H 70-105 MG/DL Calcium Level 9.1 8.5-10.1 MG/DL Corrected Calcium 9.1 8.5-10.1 MG/DL Total Bilirubin 1.2 H 0.1-1.0 MG/DL Aspartate Amino Transf (AST/SGOT) 24 5-34 U/L Alanine Aminotransferase (ALT/SGPT) 20 0-55 U/L Alkaline Phosphatase 97 40-136 U/L Total Protein 6.7 6.4-8.2 GM/DL Albumin 4.0 3.2-4.5 GM/DL Amylase Level 30 25-125 U/L Lipase 21 8-78 U/L Serum Test, Qualitative NEGATIVE NEGATIVE Acetaminophen Level < 10 L 10-30 UG/ML Serum Alcohol < 10 <10 MG/DL Urine Color YELLOW Urine Clarity SL CLOUDY Urine pH 5.5 5-9 Urine Specific [place] 1.015 L 1.016-1.022 Urine Protein 1+ H NEGATIVE Urine Glucose (UA) 3+ H NEGATIVE Urine Ketones 2+ H NEGATIVE Urine Nitrite NEGATIVE NEGATIVE Urine Bilirubin NEGATIVE NEGATIVE Urine Urobilinogen 0.2 < = 1.0 MG/DL Urine Leukocyte Esterase NEGATIVE NEGATIVE Urine RBC (Auto) NEGATIVE NEGATIVE Urine RBC NONE /HPF Urine WBC 0-2 /HPF Urine Squamous Epithelial Cells 0-2 /HPF Urine Crystals NONE /LPF Urine Bacteria FEW H /HPF Urine Casts NONE /LPF Urine Mucus SMALL H /LPF Urine Culture Indicated YES Urine Opiates Screen NEGATIVE NEGATIVE Urine Oxycodone Screen NEGATIVE NEGATIVE Urine Methadone Screen NEGATIVE NEGATIVE Urine Propoxyphene Screen NEGATIVE NEGATIVE Urine Barbiturates Screen NEGATIVE NEGATIVE Ur Tricyclic Antidepressants Screen NEGATIVE NEGATIVE Urine Phencyclidine Screen NEGATIVE NEGATIVE Urine Amphetamines Screen NEGATIVE NEGATIVE Urine Methamphetamines Screen NEGATIVE NEGATIVE Urine Benzodiazepines Screen NEGATIVE NEGATIVE Urine Cocaine Screen NEGATIVE NEGATIVE Urine Cannabinoids Screen POSITIVE H NEGATIVE Blood Gas Puncture Site RIGHT RADIAL Blood Gas Patient Temperature 36.8 Arterial Blood pH 7.39 7.37-7.43 Arterial Blood Partial Pressure CO2 35 35-45 MMHG Arterial Blood Partial Pressure O2 77 L 79-93 MMHG Arterial Blood HCO3 21 L 23-27 MMOL/L Arterial Blood Total CO2 21.7 21.0-31.0 MMOL/L Arterial Blood Oxygen Saturation 96 94-100 % Arterial Blood Base Excess -3.6 L -2.5-2.5 MMOL/L Dexter Test YES-POS Blood Gas Ventilator Setting NO Blood Gas Inspired Oxygen ROOM AIR Glucometer 449 *H 70-110 MG/DL Test 08/22/21 04:08 Range/Units Glucometer 289 H 70-110 MG/DL My Orders Orders - GAURANG STANTON DO Orphenadrine Inj (Ed Only) (Norflex Inje (08/22/21 02:00) Ketorolac Injection (Toradol Injection) (08/22/21 02:00) Diphenhydramine Injection (Benadryl Inje (08/22/21 02:00) Accucheck Stat ONCE (08/22/21 01:51) Ed Iv/Invasive Line Start (08/22/21 01:59) Monitor-Rhythm Ecg Trace Only (08/22/21 01:59) Acetaminophen (08/22/21 01:59) Alcohol (08/22/21 01:59) Amylase (08/22/21 01:59) Arterial Blood Gas (08/22/21 01:59) Cbc With Automated Diff (08/22/21 01:59) Comprehensive Metabolic Panel (08/22/21 01:59) Drug Screen Stat (Urine) (08/22/21 01:59) Hcg,Qualitative Serum (08/22/21 01:59) Lipase (08/22/21 01:59) Ua Culture If Indicated (08/22/21 01:59) Ed Iv/Invasive Line Start (08/22/21 01:59) Ns Iv 1000 Ml (Sodium Chloride 0.9%) (08/22/21 02:00) Ketorolac Injection (Toradol Injection) (08/22/21 02:00) Orphenadrine Inj (Ed Only) (Norflex Inje (08/22/21 02:00) Diphenhydramine Injection (Benadryl Inje (08/22/21 02:00) Ed Iv/Invasive Line Start (08/22/21 01:59) Ed Iv/Invasive Line Start (08/22/21 01:59) Ns Iv 1000 Ml (Sodium Chloride 0.9%) (08/22/21 02:00) Ketorolac Injection (Toradol Injection) (08/22/21 02:00) Orphenadrine Inj (Ed Only) (Norflex Inje (08/22/21 02:00) Diphenhydramine Injection (Benadryl Inje (08/22/21 02:00) Ed Iv/Invasive Line Start (08/22/21 01:59) Ed Iv/Invasive Line Start (08/22/21 01:59) Ns Iv 1000 Ml (Sodium Chloride 0.9%) (08/22/21 02:00) Ketorolac Injection (Toradol Injection) (08/22/21 02:00) Orphenadrine Inj (Ed Only) (Norflex Inje (08/22/21 02:00) Diphenhydramine Injection (Benadryl Inje (08/22/21 02:00) Ed Iv/Invasive Line Start (08/22/21 01:59) Ed Iv/Invasive Line Start (08/22/21 01:59) Ns Iv 1000 Ml (Sodium Chloride 0.9%) (08/22/21 02:00) Ketorolac Injection (Toradol Injection) (08/22/21 02:00) Orphenadrine Inj (Ed Only) (Norflex Inje (08/22/21 02:00) Diphenhydramine Injection (Benadryl Inje (08/22/21 02:00) Manual Differential (08/22/21 02:11) Urine Culture (08/22/21 02:28) Insulin (Regular) Human (Novolin R (Per (08/22/21 03:00) Ed Iv/Invasive Line Start (08/22/21 02:49) Ns Iv 1000 Ml (Sodium Chloride 0.9%) (08/22/21 03:00) Insulin (Regular) Human (Novolin R (Per (08/22/21 03:30) Ed Iv/Invasive Line Start (08/22/21 03:30) Ns Iv 1000 Ml (Sodium Chloride 0.9%) (08/22/21 03:30) Insulin (Regular) Human (Novolin R (Per (08/22/21 03:32) Accucheck Stat ONCE (08/22/21 04:09) Accucheck Stat ONCE (08/22/21 04:09) Medications Given in ED Current Medications Medications Dose Ordered Sig/Kiarra Route Start Time Stop Time Status Last Admin Dose Admin Diphenhydramine HCl 25 mg ONCE ONCE IM 08/22/21 02:00 08/22/21 02:01 DC 08/22/21 02:03 25 MG Insulin Human Regular 15 unit ONCE ONCE IV 08/22/21 03:00 08/22/21 03:01 DC 08/22/21 02:59 15 UNIT Insulin Human Regular 15 unit ONCE ONCE IV 08/22/21 03:30 08/22/21 03:31 DC 08/22/21 03:34 15 UNIT Ketorolac Tromethamine 60 mg ONCE ONCE IM 08/22/21 02:00 08/22/21 02:01 DC 08/22/21 02:03 60 MG Orphenadrine Citrate 60 mg ONCE ONCE IM 08/22/21 02:00 08/22/21 02:01 DC 08/22/21 02:03 60 MG Vital Signs/I&O 08/22/21 01:44 Temp 36.8 Pulse 128 Resp 24 B/P (MAP) 157/118 (131) Pulse Ox 99 O2 Delivery Room Air Progress Progress Note : Progress Note ACCUCHECK "HIGH" GIVEN IV FLUIDS GIVEN TORADOL, NORFLEX, BENADRYL WITH IMPROVEMENT IN SCIATICA SYMPTOMS GIVEN INSULIN FOR ELEVATED BLOOD GLUCOSE PT IS NOT IN DKA AND DOES NOT REQUIRE ADMIT AT THIS TIME. GLUCOSE DOWN TO 289 AT DISMISSAL PT WAS ABLE TO AMBULATE TO AND FROM THE BATHROOM ON HER OWN, SHORTLY AFTER ARRIVAL Departure Impression Primary Impression: Right-sided low back pain with right-sided sciatica Additional Impressions: Diabetes mellitus, insulin dependent (IDDM), uncontrolled Non-compliance Urinary tract infection Disposition: HOME, SELF-CARE Condition: Improved Departure-Patient Inst. Decision time for Depature: 02:55 Referrals: [facility] Patient Instructions: DIABETES, Urinary Tract Infection, Adult (DC), Sciatica (DC), Diabetes and Infections Add. Discharge Instructions: CHECK YOUR BLOOD SUGAR AT LEAST 3 TIMES A DAY AND KEEP A DIARY TAKE ALL OF YOUR MEDICATIONS EXACTLY PRESCRIBED--DO NOT MISS DOSES, AND KEEP MEDICATIONS WHERE YOU CAN EASILY REACH THEM TAKE YOUR INSULIN PRESCRIBED FOR DIABETES TAKE YOUR HYDROCODONE AND FLEXERIAL PRESCRIBED FOR SCIATICA ALTERNATE ICE AND HEAT TO SORE AREA AT 20 MINUTE INTERVALS FOLLOW UP WITH [facility] ON 08/25/21 SCHEDULED, OR SOONER IF NEEDED Scripts Nitrofurantoin Monohyd/M-Cryst (Macrobid 100 mg Capsule) 100 Mg Capsule 1 TAB PO BID, #14 CAP Prov: GAURANG STANTON DO 08/22/21 Ketorolac Tromethamine (Ketorolac Tromethamine) 10 Mg Tablet 10 MG PO Q6H for Pain, #15 TAB Prov: GAURANG STANTON DO 08/22/21 GAURANG STANTON DO Aug 22, 2021 01:44
[2021-08-22] MEDS ORDERED: KETOROLAC 60 MG/2 ML VIAL IM ONE (02:00)
[2021-08-22] MEDS ORDERED: diphenhydrAMINE 50 MG/ML INJ (BENADRYL) IM ONE (02:00)
[2021-08-22] MEDS ORDERED: ORPHENADRINE 60 MG/2 ML (NORFLEX) AMP (ED ONLY) IM ONE (02:00)
[2021-08-22] MEDS ORDERED: KETOROLAC 30 MG/ML VIAL IVP ONE ×4 (02:00)
[2021-08-22] MEDS ORDERED: diphenhydrAMINE 50 MG/ML INJ (BENADRYL) IVP ONE ×4 (02:00)
[2021-08-22] MEDS ORDERED: ORPHENADRINE 60 MG/2 ML (NORFLEX) AMP (ED ONLY) IV ONE ×4 (02:00)
[2021-08-22] MEDS ORDERED: NS IV 1000 ML 1,000 ML IV SCH ×6 (02:00→03:30)
[2021-08-22 02:31] LABS: BASOPHILS # (AUTO) 0.1 10^3/uL (0.0-0.1); BASOPHILS % (AUTO) 0 % (0-10); EOSINOPHILS # (AUTO) 0.2 10^3/uL (0.0-0.3); EOSINOPHILS % (AUTO) 1 % (0-10); HEMATOCRIT 42 % (35-52); HEMOGLOBIN 14.7 g/dL (11.5-16.0); LYMPHOCYTES # (AUTO) 2.6 10^3/uL (1.0-4.0); LYMPHOCYTES % (AUTO) 16 % (12-44); MEAN CORPUSCULAR HEMOGLOBIN 30 pg (25-34); MEAN CORPUSCULAR HGB CONC 35 g/dL (32-36); MEAN CORPUSCULAR VOLUME 86 fL (80-99); MEAN PLATELET VOLUME 10.5 fL (9.0-12.2); MONOCYTES # (AUTO) 0.9 10^3/uL (0.0-1.0); MONOCYTES % (AUTO) 6 % (0-12); NEUTROPHILS # (AUTO) 12.4 10^3/uL (1.8-7.8); NEUTROPHILS % (AUTO) 76 % (42-75); PLATELET COUNT 295 10^3/uL (130-400); WHITE BLOOD COUNT 16.4 10^3/uL (4.3-11.0)
[2021-08-22 02:34] LABS: BILIRUBIN,URINE NEGATIVE (NEGATIVE); CLARITY,URINE SL CLOUDY; COLOR,URINE YELLOW; GLUCOSE, URINE (UA) 3+ (NEGATIVE); KETONES,URINE 2+ (NEGATIVE); LEUKOCYTE ESTERASE ,URINE NEGATIVE (NEGATIVE); NITRITE,URINE NEGATIVE (NEGATIVE); PH,URINE 5.5 (5-9); PROTEIN,URINE 1+ (NEGATIVE)
[2021-08-22 02:37] LABS: CHLORIDE 99 MMOL/L (98-107); POTASSIUM 4.5 MMOL/L (3.6-5.0); SODIUM 132 MMOL/L (135-145)
[2021-08-22 02:38] LABS: AMYLASE 30 U/L (25-125); CALCIUM 9.1 MG/DL (8.5-10.1)
[2021-08-22 02:40] LABS: TOTAL PROTEIN 6.7 GM/DL (6.4-8.2)
[2021-08-22 02:41] LABS: BILIRUBIN,TOTAL 1.2 MG/DL (0.1-1.0); CARBON DIOXIDE 17 MMOL/L (21-32)
[2021-08-22 02:43] LABS: ALKALINE PHOSPHATASE 97 U/L (40-136); CREATININE SERUM 1.03 MG/DL (0.60-1.30); GFR ESTIMATED 59
[2021-08-22 02:44] LABS: BUN/CREATININE RATIO 15
[2021-08-22 02:46] LABS: ALANINE AMINOTRANSFERASE 20 U/L (0-55)
[2021-08-22 02:47] LABS: BACTERIA,URINE FEW /HPF; SQUAMOUS EPITHELIAL CELL,UR 0-2 /HPF; WBC,URINE 0-2 /HPF
[2021-08-22 02:47] LABS: BAND NEUTROPHILS 2 %; LIPASE 21 U/L (8-78); LYMPHOCYTES % (MANUAL) 10 %; MONOCYTES % (MANUAL) 9 %; NEUTROPHILS % (MANUAL) 79 %; RBC MORPH NORMAL
[2021-08-22 02:49] LABS: ACETAMINOPHEN < 10 UG/ML (10-30); GLUCOSE 621 MG/DL (70-105)
[2021-08-22 02:51] LABS: AMPHETAMINE SCREEN, URINE NEGATIVE (NEGATIVE); BARBITURATE SCREEN URINE NEGATIVE (NEGATIVE); BENZODIAZEPINES SCREEN URINE NEGATIVE (NEGATIVE); CANNABINOID SCREEN, URINE POSITIVE (NEGATIVE); COCAINE SCREEN URINE NEGATIVE (NEGATIVE); METHADONE STAT NEGATIVE (NEGATIVE); METHAMPHETAMINE SCREEN URINE S NEGATIVE (NEGATIVE); OPIATE SCREEN URINE NEGATIVE (NEGATIVE); OXYCODONE STAT NEGATIVE (NEGATIVE); PROPOXYPHENE STAT NEGATIVE (NEGATIVE); TRICYCLIC ANTIDEPRESSANTS SCRE NEGATIVE (NEGATIVE)
[2021-08-22 02:51] LABS: ABG BASE EXCESS -3.6 MMOL/L (-2.5-2.5); ABG OXYGEN SATURATION 96 % (94-100); ABG PCO2 35 MMHG (35-45); ABG PH 7.39 (7.37-7.43); ABG PO2 77 MMHG (79-93); ABG TCO2 21.7 MMOL/L (21.0-31.0)
[2021-08-22 02:52] LABS: ALLENS TEST YES-POS; INSPIRED O2 ROOM AIR; PATIENT TEMP 36.8; VENTILATOR NO
[2021-08-22] MEDS ORDERED: KETO10TA PO (02:57)
[2021-08-22] MEDS ORDERED: inSUlin (REGULAR) HUMAN 1 UNIT/0.01 ML (CHARGE PER UNIT) IV ONE ×2 (03:00→03:30)
[2021-08-22] MEDS ORDERED: NITR-65 PO (03:19)
[2021-08-22] MEDS ORDERED: inSUlin (REGULAR) HUMAN 1 UNIT/0.01 ML (CHARGE PER UNIT) ONE (03:32)
[2021-08-22 04:15] VITALS: BP 118/95
== END 2021-08-22 04:22 | disposition home or self-care (01) ==
LOC: EDUNIT# 01:35 → ER 01:43
DX: M54.41 Lumbago with sciatica, right side (principal); E11.9 Type 2 diabetes mellitus without complications; N39.0 Urinary tract infection, site not specified; K21.9 Gastro-esophageal reflux disease without esophagitis; F41.9 Anxiety disorder, unspecified; F32.9 Major depressive disorder, single episode, unspecified; G89.29 Other chronic pain; M54.9 Dorsalgia, unspecified; F17.210 Nicotine dependence, cigarettes, uncomplicated; Z91.19 Patient's noncompliance with other medical treatment and regimen; Z79.4 Long term (current) use of insulin; Z79.899 Other long term (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; Z79.891 Long term (current) use of opiate analgesic
CPT/HCPCS: 80053; 80306; 81000; 82150; 82805; 82947; 83690; 84703; 85007; 85027; 87077; 87088; 93041; 99285; G0480 ×2; 36415; 80320; 80329; 87186

== ENCOUNTER 2021-10-16 11:51 | Emergency (ER) | payer MEDICARE, MEDICAID ==
[~2021-10-16] VITALS: Ht 167 cm; Wt 86.0 kg
[~2021-10-16 11:51] MED LIST changes: -CITA40TA11 PO; +CITA40TA13 PO; +CYCL10TA25 PO; -CYCL10TA9 PO; -GUAN1TAB30 PO; +GUAN1TAB38 PO; +KETO10TA PO
[2021-10-16] MEDS ORDERED: LIDOCAINE/EPI 1%-1:100,000 (XYLOCAINE) 20ML INJ ONE (12:15)
--- NOTE | 2021-10-16 12:19 | ED Integumentary General ---
General Chief Complaint: Skin/Wound Problems Stated Complaint: PELVIC PAIN Source: patient Exam Limitations: no limitations History of Present Illness Date Seen by Provider: Oct 16, 2021 Time Seen by Provider: 12:17 Initial Comments 3-day history of left-sided lower labial pain and swelling. Saw [facility] yesterday given Bactrim and warm sitz bath prescription. No improvement today no systemic symptoms. She is a poorly controlled diabetic. Timing/Duration: constant Severity: moderate Associated Symptoms: denies symptoms Allergies and Home Medications Allergies Coded Allergies: amoxicillin (Unverified Allergy, Severe, sob, rash, 11/01/10) clindamycin (Verified Allergy, Unknown, 08/16/21) Penicillins (Verified Adverse Reaction, Severe, RASH, 12/14/05) cefuroxime (Verified Adverse Reaction, Severe, RASH, 12/14/05) clarithromycin (Unverified Adverse Reaction, Mild, nausea and dizziness, 02/07/14) Patient Home Medication List Home Medication List Reviewed: Yes Albuterol Sulfate (Ventolin Hfa) 18 Gm Hfa.aer.ad, 2 PUFF IH Q6H PRN for SHORTNESS OF BREATH, (Reported) Entered as Reported by: SHELBY RING on 01/29/18 172 Aripiprazole (Aripiprazole) 2 Mg Tablet, 2 MG PO DAILY, (Reported) Entered as Reported by: SHELBY RING on 01/29/18 1733 Atomoxetine HCl (Atomoxetine HCl) 40 Mg Capsule, (Reported) Entered as Reported by: EVA CORNELIUS on 04/04/20 0017 Cyclobenzaprine HCl (Cyclobenzaprine HCl) 10 Mg Tablet, 10 MG PO Q8H PRN for SPASMS Prescribed by: ELIAS COFFMAN on 08/16/21 1047 Cyproheptadine HCl (Cyproheptadine HCl) 4 Mg Tablet, (Reported) Entered as Reported by: EVA CORNELIUS on 05/03/18 0110 Guanfacine HCl (Guanfacine HCl ER) 1 Mg Tab.er.24h, 1 MG PO HS, (Reported) Entered as Reported by: SHELBY RING on 01/29/18 1727 Hydrocodone/Acetaminophen (Hydrocodone-Acetamin 5-325 mg) 1 Each Tablet, 1 TAB PO Q4H PRN for PAIN-MODERATE (5-7) Prescribed by: ELIAS COFFMAN on 08/16/21 1047 Insulin Aspart (Novolog Flexpen) 300 Units/3 Ml Solution, 25 UNITS SQ AC, (Reported) Entered as Reported by: SHELBY RING on 01/29/18 183 Insulin Detemir (Levemir Flextouch) 100 Unit/1 Ml Insuln.pen, 67 UNITS SQ HS, (Reported) Entered as Reported by: SHELBY RING on 01/29/18 183 Ketorolac Tromethamine (Ketorolac Tromethamine) 10 Mg Tablet, 10 MG PO Q6H Prescribed by: GAURANG STANTON on 08/22/21 025 L. Acidophilus/Pectin, [place] (Acidophilus Capsule) 1 Each Capsule, 2 EACH PO QID Prescribed by: GAURANG STANTON on 11/14/20 041 Levothyroxine Sodium (Synthroid) 75 Mcg Tablet, (Reported) Entered as Reported by: EVA CORNELIUS on 05/03/18 011 Lorazepam (Lorazepam) 1 Mg Tablet, 1 MG PO DAILY PRN for ANXIETY, (Reported) Entered as Reported by: SHELBY RING on 01/29/18 172 Meclizine HCl (Meclizine HCl) 25 Mg Tablet, 50 MG PO Q6 PRN for DIZZINESS Prescribed by: GAURANG STANTON on 11/14/20410 Metformin HCl (Metformin HCl) 1,000 Mg Tablet, 1,000 MG PO BID, (Reported) Entered as Reported by: SHELBY RING on 01/29/18 172 Nitrofurantoin Monohyd/M-Cryst (Macrobid 100 mg Capsule) 100 Mg Capsule, 1 TAB PO BID Prescribed by: GAURANG STANTON on 08/22/21 031 Ondansetron (Ondansetron Odt) 4 Mg Tab.rapdis, 4 MG PO Q4H PRN for NAUSEA/VOMITING Prescribed by: JOHN ARTEAGA on 11/13/18 0509 Oxcarbazepine (Oxcarbazepine) 600 Mg Tablet, (Reported) Entered as Reported by: EVA CORNELIUS on 05/03/18 0110 Paliperidone (Paliperidone ER) 6 Mg Tab.er.24, (Reported) Entered as Reported by: EVA CORNELIUS on 04/04/20 0017 Pantoprazole Sodium (Pantoprazole Sodium) 40 Mg Tablet.dr, (Reported) Entered as Reported by: EVA CORNELIUS on 04/04/2016 Prazosin HCl (Prazosin HCl) 1 Mg Capsule, (Reported) Entered as Reported by: EVA CORNELIUS on 04/04/2016 Quetiapine Fumarate (Quetiapine Fumarate) 200 Mg Tablet, 200 MG PO HS, (Reported) Entered as Reported by: SHELBY RING on 01/29/18 172 Topiramate (Topiramate) 100 Mg Tablet, 150 MG PO BID, (Reported) Entered as Reported by: SHELBY RING on 01/29/18 1733 Vortioxetine Hydrobromide (Trintellix) 20 Mg Tablet, (Reported) Entered as Reported by: EVA CORNELIUS on 05/03/18 0110 Review of Systems Review of Systems Constitutional: see HPI EENTM: see HPI Respiratory: no symptoms reported Cardiovascular: no symptoms reported Genitourinary: see HPI Musculoskeletal: no symptoms reported Skin: no symptoms reported Psychiatric/Neurological: No Symptoms Reported Endocrine: No Symptoms Reported Hematologic/Lymphatic: No Symptoms Reported Past Hkhfbyu-Vfzell-Ihjclm Hx Immunizations Up To Date Tetanus Booster (TDap): Less than 5yrs First/Initial COVID19 Vaccinat: December COVID19 Vaccination Stepan: January COVID19 Vaccination Date: Seasonal Allergies Seasonal Allergies: Yes Past Medical History Surgery/Hospitalization HX: TYPE 2 DM HYPOTHYROID ADHD SCHIZOEFFECTIVE DISORDER APPENDECTOMY CHOLECYSTECTOMY Surgeries: Yes Eye Surgery, Gallbladder, Orthopedic Respiratory: No Cardiac: Yes High Cholesterol Neurological: Yes Headaches /Migraines Reproductive Disorders: No Female Reproductive Disorders: Denies Sexually Transmitted Disease: No HIV/AIDS: No Genitourinary: Yes UTI-Chronic Gastrointestinal: Yes Gastroesophageal Reflux Musculoskeletal: Yes (SCIATICA; RIGHT HIP SURGERY CHILD) Degenerate Disk Disease, Chronic Back Pain Endocrine: Yes (INSULIN + ORAL MEDICATIONS) Diabetes, Insulin dep HEENT: Yes (EYE SURGERY) Loss of Vision: Bilateral Hearing Impairment: Denies Cancer: No Psychosocial: Yes (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) Anxiety, Suicide Attempts, Depression Integumentary: No Blood Disorders: No Family Medical History Family history: Allergy 03 MOTHER 09 BROTHER Family history: Arthritis 03 MOTHER Family history: Asthma 09 BROTHER 09 SISTER Family history: Cardiovascular disease 03 FATHER ("TAKES MEDICATION FOR HIS HEART") Family history: Diabetes mellitus 03 FATHER Family history: Hypertension 03 MOTHER Hypercholesterolemia 03 MOTHER Psychosocial problem 09 SISTER (DEPRESSION) Psychotic disorder 09 SISTER (ANXIETY) No Family History of: Abdominal aortic aneurysm Scio's disease Alcoholism Aphasia Cancer Cancer of colon Cataract Chest pain Congenital heart disease Congestive heart failure Cystic fibrosis Dementia Dysphagia Family history: Alzheimer's disease Family history: Breast disease Family history: Coronary thrombosis Family history: Gastrointestinal disease Family history: Glaucoma Family history: Osteoporosis Family history: Thyroid disorder Headache Hearing loss Heart disease Hereditary disease History of - anemia History of - disorder History of - respiratory disease History of drug abuse Human immunodeficiency virus (HIV) seropositivity Infertile Kidney disease Malignant neoplasm of lung Myocardial infarction Parkinson's disease Prostate cancer Seizure disorder Stroke Tuberculosis Visual impairment No Pertinent Family Hx SOCIAL HISTORY: -SMOKES AT LEAST 1 PPD -DRUGS--MARIJUANA -ETOH--BEER ON REGULAR BASIS MRI LUMBAR SPINE 2016 IMPRESSION: 1: There is an L5-S1 small right paracentral disc protrusion/herniation with annular tear which closely abuts the non-exited right S1 nerve root. There is a small amount of Modic type I degenerative signal changes at the L5-S1 levels posteriorly. 2: There is mild T10-T11 bilateral facet arthropathy. Physical Exam Vital Signs Vital Signs - First Documented 10/16/21 12:10 Temp 36.3 Pulse 77 Resp 16 B/P (MAP) 141/113 (122) Pulse Ox 98 O2 Delivery Room Air Capillary Refill : General Appearance: WD/WN, no apparent distress HEENT: PERRL/EOMI, normal ENT inspection Neck: non-tender, full range of motion Respiratory: no respiratory distress, no accessory muscle use Gastrointestinal: normal bowel sounds, non tender Extremities: normal range of motion, non-tender Neurologic/Psychiatric: alert, normal mood/affect, oriented x 3 Skin: normal color, warm/dry Skin Problem Character: abscess, other (There is a fluctuant abscess to the left inferior labia) Progress/Results/Core Measures Results/Orders Lab Results Laboratory Tests Test 10/16/21 12:20 10/16/21 12:24 Range/Units White Blood Count 10.3 4.3-11.0 10^3/uL Red Blood Count 4.37 3.80-5.11 10^6/uL Hemoglobin 12.5 11.5-16.0 g/dL Hematocrit 38 35-52 % Mean Corpuscular Volume 87 80-99 fL Mean Corpuscular Hemoglobin 29 25-34 pg Mean Corpuscular Hemoglobin Concent 33 32-36 g/dL Red Cell Distribution Width 12.9 10.0-14.5 % Platelet Count 240 130-400 10^3/uL Mean Platelet Volume 10.6 9.0-12.2 fL Immature Granulocyte % (Auto) 0 % Neutrophils (%) (Auto) 65 42-75 % Lymphocytes (%) (Auto) 22 12-44 % Monocytes (%) (Auto) 9 0-12 % Eosinophils (%) (Auto) 3 0-10 % Basophils (%) (Auto) 1 0-10 % Neutrophils # (Auto) 6.7 1.8-7.8 10^3/uL Lymphocytes # (Auto) 2.3 1.0-4.0 10^3/uL Monocytes # (Auto) 0.9 0.0-1.0 10^3/uL Eosinophils # (Auto) 0.3 0.0-0.3 10^3/uL Basophils # (Auto) 0.1 0.0-0.1 10^3/uL Immature Granulocyte # (Auto) 0.0 0.0-0.1 10^3/uL Sodium Level 130 L 135-145 MMOL/L Potassium Level 4.2 3.6-5.0 MMOL/L Chloride Level 100 98-107 MMOL/L Carbon Dioxide Level 18 L 21-32 MMOL/L Anion Gap 12 5-14 MMOL/L Blood Urea Nitrogen 8 7-18 MG/DL Creatinine 0.79 0.60-1.30 MG/DL Estimat Glomerular Filtration Rate 81 BUN/Creatinine Ratio 10 Glucose Level 519 *H 70-105 MG/DL Calcium Level 8.6 8.5-10.1 MG/DL Urine Test NEGATIVE NEGATIVE Glucometer 394 H 70-110 MG/DL My Orders Orders - TANYA GONZALEZ APRN Ua Culture If Indicated (10/16/21 12:06) Hcg,Qualitative Urine (10/16/21 12:06) Cbc With Automated Diff (10/16/21 12:15) Basic Metabolic Panel (10/16/21 12:15) Wound Culture (10/16/21 12:15) Lidocaine/Epi 1% 1:100,000 (Xylocaine /E (10/16/21 12:15) Fentanyl Inj (Sublimaze Injection) (10/16/21 12:30) Insulin (Regular) Human (Novolin R (Per (10/16/21 16:00) Lactated Ringers (Lr 1000 Ml Iv Solution (10/16/21 12:30) Medications Given in ED Current Medications Medications Dose Ordered Sig/Kiarra Route Start Time Stop Time Status Last Admin Dose Admin Fentanyl Citrate 50 mcg ONCE ONCE IVP 10/16/21 12:30 10/16/21 12:31 DC 10/16/21 12:23 50 MCG Vital Signs/I&O 10/16/21 12:10 Temp 36.3 Pulse 77 Resp 16 B/P (MAP) 141/113 (122) Pulse Ox 98 O2 Delivery Room Air Departure Communication (Admissions) 1253-The most fluctuant portion of the abscess we anesthetized with lidocaine without epinephrine totaling 2 mL, made an incision with an 11 blade scalpel moderate amount of bloody material expressed. Cavity irrigated with Betadine/saline solution culture collected and sent to lab. Impression Primary Impression: Bartholin cyst Disposition: HOME, SELF-CARE Condition: Stable Departure-Patient Inst. Decision time for Depature: 12:53 Referrals: [facility] [place] Primary Care Physician EDIL MILLER ANGELA C DO Patient Instructions: Bartholin Gland Cyst Add. Discharge Instructions: 1. Continue the antibiotics. Continue with warm soaks. Return to ER for any worsening. TANYA GONZALEZ APRN Oct 16, 2021 12:19
[2021-10-16] MEDS ORDERED: LACTATED RINGERS 1,000 ML IV SCH (12:30)
[2021-10-16] MEDS ORDERED: fentaNYL INJ 100 MCG/2 ML AMP IVP ONE (12:30)
[2021-10-16 12:32] LABS: BASOPHILS # (AUTO) 0.1 10^3/uL (0.0-0.1); BASOPHILS % (AUTO) 1 % (0-10); EOSINOPHILS # (AUTO) 0.3 10^3/uL (0.0-0.3); EOSINOPHILS % (AUTO) 3 % (0-10); HEMATOCRIT 38 % (35-52); HEMOGLOBIN 12.5 g/dL (11.5-16.0); LYMPHOCYTES # (AUTO) 2.3 10^3/uL (1.0-4.0); LYMPHOCYTES % (AUTO) 22 % (12-44); MEAN CORPUSCULAR HEMOGLOBIN 29 pg (25-34); MEAN CORPUSCULAR HGB CONC 33 g/dL (32-36); MEAN CORPUSCULAR VOLUME 87 fL (80-99); MEAN PLATELET VOLUME 10.6 fL (9.0-12.2); MONOCYTES # (AUTO) 0.9 10^3/uL (0.0-1.0); MONOCYTES % (AUTO) 9 % (0-12); NEUTROPHILS # (AUTO) 6.7 10^3/uL (1.8-7.8); NEUTROPHILS % (AUTO) 65 % (42-75); PLATELET COUNT 240 10^3/uL (130-400); WHITE BLOOD COUNT 10.3 10^3/uL (4.3-11.0)
[2021-10-16 12:35] LABS: BILIRUBIN,URINE NEGATIVE (NEGATIVE); CLARITY,URINE CLEAR; COLOR,URINE YELLOW; GLUCOSE, URINE (UA) 3+ (NEGATIVE); KETONES,URINE NEGATIVE (NEGATIVE); LEUKOCYTE ESTERASE ,URINE NEGATIVE (NEGATIVE); NITRITE,URINE NEGATIVE (NEGATIVE); PH,URINE 6.5 (5-9); PROTEIN,URINE TRACE (NEGATIVE)
[2021-10-16 12:37] LABS: POTASSIUM 4.2 MMOL/L (3.6-5.0)
[2021-10-16 12:39] LABS: CALCIUM 8.6 MG/DL (8.5-10.1)
[2021-10-16 12:43] LABS: CREATININE SERUM 0.79 MG/DL (0.60-1.30)
[2021-10-16 13:00] LABS: BACTERIA,URINE FEW /HPF
[2021-10-16] MEDS ORDERED: inSUlin (REGULAR) HUMAN 1 UNIT/0.01 ML (CHARGE PER UNIT) IV SCH ×3 (13:00→16:00)
[2021-10-16 13:01] LABS: YEAST,URINE MODERATE /HPF
[2021-10-16] MEDS ORDERED: inSUlin ASPART (NovoLOG) 1 UNIT/0.01 ML (CHARGE PER UNIT) ONE (13:06)
[2021-10-16 14:18] VITALS: BP 123/86
== END 2021-10-16 14:18 | disposition home or self-care (01) ==
LOC: EDUNIT# 11:51 → ER 11:53
DX: N75.0 Cyst of Bartholin's gland (principal); E11.9 Type 2 diabetes mellitus without complications; F41.9 Anxiety disorder, unspecified; F32.9 Major depressive disorder, single episode, unspecified; E03.9 Hypothyroidism, unspecified; K21.9 Gastro-esophageal reflux disease without esophagitis; G89.29 Other chronic pain; M54.9 Dorsalgia, unspecified; Z79.4 Long term (current) use of insulin; Z79.890 Hormone replacement therapy; Z79.899 Other long term (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; Z79.891 Long term (current) use of opiate analgesic
CPT/HCPCS: 36415; 80048; 81000; 82947; 84703; 85025; 87070; 87088; 87205

== ENCOUNTER 2022-01-02 16:20 | Emergency (ER) | payer MEDICARE, MEDICAID ==
[~2022-01-02] VITALS: Ht 167 cm; Wt 85.7 kg
[2022-01-02] MEDS ORDERED: LACTATED RINGERS 1,000 ML IV SCH ×2 (16:30)
--- NOTE | 2022-01-02 16:37 | ED General ---
General Chief Complaint: Glucose Problems Stated Complaint: HIGH BLOOD SUGAR Source of Information: Patient Exam Limitations: No Limitations (TANYA GONZALEZ APRN) History of Present Illness Date Seen by Provider: Jan 02, 2022 Time Seen by Provider: 16:35 Initial Comments To ER by primary care [facility] with reports of hyperglycemia. She presented there with tingling in both of her legs and dizziness onset today but her blood glucose was found to be too high to read so she was referred here.. She also believes that she has a vaginal yeast infection based on vaginal i tchiness and she has had some rectal bleeding only with bowel movements since yesterday. No rectal pain no abdominal pain no fevers no chills. She had a cough since October. She is an insulin-dependent diabetic. She took 27 units of NovoLog at 230. Timing/Duration: 12-24 Hours Severity: Moderate Associated Systoms: No Headaches, No Nausea/Vomiting; Weakness (TANYA GONZALEZ APRN) Allergies and Home Medications Allergies Coded Allergies: amoxicillin (Unverified Allergy, Severe, sob, rash, 11/01/10) clindamycin (Verified Allergy, Unknown, 08/16/21) Penicillins (Verified Adverse Reaction, Severe, RASH, 12/14/05) cefuroxime (Verified Adverse Reaction, Severe, RASH, 12/14/05) clarithromycin (Unverified Adverse Reaction, Mild, nausea and dizziness, 02/07/14) Patient Home Medication List Home Medication List Reviewed: Yes (TANYA GONZALEZ APRN) Albuterol Sulfate (Ventolin Hfa) 18 Gm Hfa.aer.ad, 2 PUFF IH Q6H PRN for SHORTNESS OF BREATH, (Reported) Entered as Reported by: SHELBY RING on 01/29/18 1727 Aripiprazole (Aripiprazole) 2 Mg Tablet, 2 MG PO DAILY, (Reported) Entered as Reported by: SHELBY RING on 01/29/18 1733 Atomoxetine HCl (Atomoxetine HCl) 40 Mg Capsule, (Reported) Entered as Reported by: EVA CORNELIUS on 04/04/20 0017 Cyclobenzaprine HCl (Cyclobenzaprine HCl) 10 Mg Tablet, 10 MG PO Q8H PRN for SPASMS Prescribed by: ELIAS COFFMAN on 08/16/21 1047 Cyproheptadine HCl (Cyproheptadine HCl) 4 Mg Tablet, (Reported) Entered as Reported by: EVA CORNELIUS on 05/03/18 011 Guanfacine HCl (Guanfacine HCl ER) 1 Mg Tab.er.24h, 1 MG PO HS, (Reported) Entered as Reported by: SHELBY RING on 01/29/181726 Hydrocodone/Acetaminophen (Hydrocodone-Acetamin 5-325 mg) 1 Each Tablet, 1 TAB PO Q4H PRN for PAIN-MODERATE (5-7) Prescribed by: ELIAS COFFMAN on 08/16/21 104 Insulin Aspart (Novolog Flexpen) 300 Units/3 Ml Solution, 25 UNITS SQ AC, (Reported) Entered as Reported by: SHELBY RING on 01/29/181835 Insulin Detemir (Levemir Flextouch) 100 Unit/1 Ml Insuln.pen, 67 UNITS SQ HS, (Reported) Entered as Reported by: SHELBY RING on 01/29/181835 Ketorolac Tromethamine (Ketorolac Tromethamine) 10 Mg Tablet, 10 MG PO Q6H Prescribed by: GAURANG STANTON on 08/22/21 025 L. Acidophilus/Pectin, [place] (Acidophilus Capsule) 1 Each Capsule, 2 EACH PO QID Prescribed by: GAURANG STANTON on 11/14/20410 Levothyroxine Sodium (Synthroid) 75 Mcg Tablet, (Reported) Entered as Reported by: EVA CORNELIUS on 05/03/18109 Lorazepam (Lorazepam) 1 Mg Tablet, 1 MG PO DAILY PRN for ANXIETY, (Reported) Entered as Reported by: SHELBY RING on 01/29/181726 Meclizine HCl (Meclizine HCl) 25 Mg Tablet, 50 MG PO Q6 PRN for DIZZINESS Prescribed by: GAURANG STANTON on 11/14/20410 Metformin HCl (Metformin HCl) 1,000 Mg Tablet, 1,000 MG PO BID, (Reported) Entered as Reported by: SHELBY RING on 01/29/181726 Miconazole Nitrate (Monistat 1) 1 Each Kit, 1 EACH VG ONCE Prescribed by: TANYA GONZALEZ on 01/02/22 172 Nitrofurantoin Monohyd/M-Cryst (Macrobid 100 mg Capsule) 100 Mg Capsule, 1 TAB PO BID Prescribed by: GAURANG STANTON on 08/22/21 0319 Ondansetron (Ondansetron Odt) 4 Mg Tab.rapdis, 4 MG PO Q4H PRN for NAUSEA/VOMITING Prescribed by: JOHN ARTEAGA on 11/13/18 0509 Oxcarbazepine (Oxcarbazepine) 600 Mg Tablet, (Reported) Entered as Reported by: EVA CORNELIUS on 05/03/18 011 Paliperidone (Paliperidone ER) 6 Mg Tab.er.24, (Reported) Entered as Reported by: EVA CORNELIUS on 04/04/2016 Pantoprazole Sodium (Pantoprazole Sodium) 40 Mg Tablet.dr, (Reported) Entered as Reported by: EVA CORNELIUS on 04/04/2016 Prazosin HCl (Prazosin HCl) 1 Mg Capsule, (Reported) Entered as Reported by: EVA CORNELIUS on 04/04/2016 Quetiapine Fumarate (Quetiapine Fumarate) 200 Mg Tablet, 200 MG PO HS, (Reported) Entered as Reported by: SHELBY RING on 01/29/18 1722 Topiramate (Topiramate) 100 Mg Tablet, 150 MG PO BID, (Reported) Entered as Reported by: SHELBY RING on 01/29/18 1733 Vortioxetine Hydrobromide (Trintellix) 20 Mg Tablet, (Reported) Entered as Reported by: EVA CORNELIUS on 05/03/18109 Review of Systems Review of Systems Constitutional: see HPI EENTM: see HPI Respiratory: no symptoms reported Cardiovascular: no symptoms reported Genitourinary: no symptoms reported Musculoskeletal: no symptoms reported Skin: no symptoms reported Psychiatric/Neurological: No Symptoms Reported Hematologic/Lymphatic: No Symptoms Reported Immunological/Allergic: no symptoms reported (TANYA GONZALEZ APRN) Past Jkrxbhh-Rolagw-Gmlcer Hx Immunizations Up To Date Tetanus Booster (TDap): Less than 5yrs First/Initial COVID19 Vaccinat: DECEMBER Second COVID19 Vaccination Stepan: 02/11 Third COVID19 Vaccination Date: (TANYA GONZALEZ APRN) Seasonal Allergies Seasonal Allergies: Yes (TANYA GONZALEZ APRN) Past Medical History Surgery/Hospitalization HX: TYPE 2 DM HYPOTHYROID ADHD SCHIZOEFFECTIVE DISORDER APPENDECTOMY CHOLECYSTECTOMY Surgeries: Yes Eye Surgery, Gallbladder, Orthopedic Respiratory: No Cardiac: Yes High Cholesterol Neurological: Yes Headaches /Migraines Reproductive Disorders: No Female Reproductive Disorders: Denies Sexually Transmitted Disease: No HIV/AIDS: No Genitourinary: Yes UTI-Chronic Gastrointestinal: Yes Gastroesophageal Reflux Musculoskeletal: Yes (SCIATICA; RIGHT HIP SURGERY CHILD) Degenerate Disk Disease, Chronic Back Pain Endocrine: Yes (INSULIN + ORAL MEDICATIONS) Diabetes, Insulin dep HEENT: Yes (EYE SURGERY) Loss of Vision: Bilateral Hearing Impairment: Denies Cancer: No Psychosocial: Yes (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) Anxiety, Suicide Attempts, Depression Integumentary: No Blood Disorders: No (TANYA GONZALEZ APRN) Family Medical History Family history: Allergy 03 MOTHER 09 BROTHER Family history: Arthritis 03 MOTHER Family history: Asthma 09 BROTHER 09 SISTER Family history: Cardiovascular disease 03 FATHER ("TAKES MEDICATION FOR HIS HEART") Family history: Diabetes mellitus 03 FATHER Family history: Hypertension 03 MOTHER Hypercholesterolemia 03 MOTHER Psychosocial problem 09 SISTER (DEPRESSION) Psychotic disorder 09 SISTER (ANXIETY) No Family History of: Abdominal aortic aneurysm Zenon's disease Alcoholism Aphasia Cancer Cancer of colon Cataract Chest pain Congenital heart disease Congestive heart failure Cystic fibrosis Dementia Dysphagia Family history: Alzheimer's disease Family history: Breast disease Family history: Coronary thrombosis Family history: Gastrointestinal disease Family history: Glaucoma Family history: Osteoporosis Family history: Thyroid disorder Headache Hearing loss Heart disease Hereditary disease History of - anemia History of - disorder History of - respiratory disease History of drug abuse Human immunodeficiency virus (HIV) seropositivity Infertile Kidney disease Malignant neoplasm of lung Myocardial infarction Parkinson's disease Prostate cancer Seizure disorder Stroke Tuberculosis Visual impairment No Pertinent Family Hx SOCIAL HISTORY: -SMOKES AT LEAST 1 PPD -DRUGS--MARIJUANA -ETOH--BEER ON REGULAR BASIS MRI LUMBAR SPINE 2016 IMPRESSION: 1: There is an L5-S1 small right paracentral disc protrusion/herniation with annular tear which closely abuts the non-exited right S1 nerve root. There is a small amount of Modic type I degenerative signal changes at the L5-S1 levels posteriorly. 2: There is mild T10-T11 bilateral facet arthropathy. (TANYA GONZALEZ APRN) Physical Exam Vital Signs Vital Signs - First Documented 01/02/22 16:30 Temp 36.1 Pulse 101 Resp 18 B/P (MAP) 154/95 (114) Pulse Ox 99 (JOHN LEE MD) Vital Signs Capillary Refill : (TANYA GONZALEZ APRN) Height, Weight, BMI Height: 5'6.00" Weight: 192lbs. 0oz. [id number]; 30.00 BMI Method:Stated General Appearance: No Apparent Distress, WD/WN Eyes: Bilateral Eye Normal Inspection, Bilateral Eye PERRL, Bilateral Eye EOMI Neck: Full Range of Motion, Normal Inspection Respiratory: No Accessory Muscle Use, No Respiratory Distress Cardiovascular: Regular Rate, Rhythm, Normal Peripheral Pulses Gastrointestinal: Normal Bowel Sounds, Non Tender, Soft Genital/Rectal: Other (External pelvic exam done accompanied by Candace DALAL and Elaina HARTMANN at the bedside. There is some erythema of the labia. She reports some vaginal itchiness and discharge and is concerned that she has a yeast infection. This was the reason for genital exam. She also reports some rectal bleeding. There appears to be a small anterior anal fissure.) Extremity: Normal Capillary Refill, Normal Inspection Neurologic/Psychiatric: Alert, Oriented x3 Skin: Normal Color, Warm/Dry (TANYA GONZALEZ APRN) Progress/Results/Core Measures Suspected Sepsis SIRS Temperature: Pulse: Respiratory Rate: Laboratory Tests 01/02/22 16:35: White Blood Count 11.9H Blood Pressure / Mean: Laboratory Tests 01/02/22 16:35: Creatinine 0.88, Platelet Count 264, Total Bilirubin 0.7 (TANYA GONZALEZ APRN) Results/Orders Lab Results Laboratory Tests Test 01/02/22 16:35 01/02/22 16:44 01/02/22 18:48 Range/Units White Blood Count 11.9 H 4.3-11.0 10^3/uL Red Blood Count 5.05 3.80-5.11 10^6/uL Hemoglobin 15.0 11.5-16.0 g/dL Hematocrit 42 35-52 % Mean Corpuscular Volume 83 80-99 fL Mean Corpuscular Hemoglobin 30 25-34 pg Mean Corpuscular Hemoglobin Concent 36 32-36 g/dL Red Cell Distribution Width 13.0 10.0-14.5 % Platelet Count 264 130-400 10^3/uL Mean Platelet Volume 10.3 9.0-12.2 fL Immature Granulocyte % (Auto) 1 % Neutrophils (%) (Auto) 53 42-75 % Lymphocytes (%) (Auto) 37 12-44 % Monocytes (%) (Auto) 9 0-12 % Eosinophils (%) (Auto) 1 0-10 % Basophils (%) (Auto) 1 0-10 % Neutrophils # (Auto) 6.3 1.8-7.8 10^3/uL Lymphocytes # (Auto) 4.4 H 1.0-4.0 10^3/uL Monocytes # (Auto) 1.0 0.0-1.0 10^3/uL Eosinophils # (Auto) 0.1 0.0-0.3 10^3/uL Basophils # (Auto) 0.1 0.0-0.1 10^3/uL Immature Granulocyte # (Auto) 0.1 0.0-0.1 10^3/uL Sodium Level 128 L 135-145 MMOL/L Potassium Level 3.4 L 3.6-5.0 MMOL/L Chloride Level 94 L 98-107 MMOL/L Carbon Dioxide Level 19 L 21-32 MMOL/L Anion Gap 15 H 5-14 MMOL/L Blood Urea Nitrogen 13 7-18 MG/DL Creatinine 0.88 0.60-1.30 MG/DL Estimat Glomerular Filtration Rate 85 BUN/Creatinine Ratio 15 Glucose Level 356 H 70-105 MG/DL Glucometer 360 H 145 H 70-110 MG/DL Calcium Level 9.9 8.5-10.1 MG/DL Corrected Calcium 9.7 8.5-10.1 MG/DL Total Bilirubin 0.7 0.1-1.0 MG/DL Aspartate Amino Transf (AST/SGOT) 11 5-34 U/L Alanine Aminotransferase (ALT/SGPT) 14 0-55 U/L Alkaline Phosphatase 123 40-136 U/L Total Protein 7.2 6.4-8.2 GM/DL Albumin 4.2 3.2-4.5 GM/DL Beta-Hydroxybutyrate (Chem panel) 0.09 0.00-0.27 MMOL/L Serum Test, Qualitative NEGATIVE NEGATIVE Urine Color YELLOW Urine Clarity CLEAR Urine pH 6.0 5-9 Urine Specific [place] <=1.005 1.016-1.022 Urine Protein NEGATIVE NEGATIVE Urine Glucose (UA) 3+ H NEGATIVE Urine Ketones NEGATIVE NEGATIVE Urine Nitrite NEGATIVE NEGATIVE Urine Bilirubin NEGATIVE NEGATIVE Urine Urobilinogen 0.2 < = 1.0 MG/DL Urine Leukocyte Esterase NEGATIVE NEGATIVE Urine RBC (Auto) 1+ H NEGATIVE Urine RBC NONE /HPF Urine WBC 0-2 /HPF Urine Squamous Epithelial Cells NONE /HPF Urine Renal Epithelial Cells NONE /HPF Urine Crystals NONE /LPF Urine Bacteria NEGATIVE /HPF Urine Casts NONE /LPF Urine Mucus NEGATIVE /LPF Urine Culture Indicated NO (JOHN LEE MD) Vital Signs/I&O 01/02/22 01/02/22 16:30 18:50 Temp 36.1 Pulse 101 93 Resp 18 18 B/P (MAP) 154/95 (114) 150/79 Pulse Ox 99 96 (JOHN LEE MD) Vital Signs/I&O Capillary Refill : (TANYA GONZALEZ APRN) Departure Communication (Admissions) Sherie has interaction with several of her psych meds which she definitely needs. I will put her on a Monistat dose. (TANYA GONZALEZ APRN) Impression Primary Impression: Hyperglycemia Additional Impression: Vulvovaginal candidiasis Disposition: HOME, SELF-CARE Condition: Stable Departure-Patient Inst. Decision time for Depature: 17:25 (TANYA GONZALEZ APRN) [place]errals: [facility] [place] Primary Care Physician Patient Instructions: High Blood Sugar, Adult ED, Vulvovaginal Yeast Infection Scripts Miconazole Nitrate (Monistat 1) 1 Each Kit 1 EACH VG ONCE, #1 KIT Prov: TANYA GONZALEZ APRN 01/02/22 ATTENDING PHYSICIAN NOTE: I was physically present as attending physician in the emergency department during the care of this patient, but I was not directly involved in the decision making or delivery of care for this patient. (JOHN LEE MD) TANYA GONZALEZ APRN Jan 02, 2022 16:37 JOHN LEE MD Jan 04, 2022 13:04
[2022-01-02 16:41] LABS: BASOPHILS # (AUTO) 0.1 10^3/uL (0.0-0.1); BASOPHILS % (AUTO) 1 % (0-10); EOSINOPHILS # (AUTO) 0.1 10^3/uL (0.0-0.3); EOSINOPHILS % (AUTO) 1 % (0-10); HEMATOCRIT 42 % (35-52); LYMPHOCYTES # (AUTO) 4.4 10^3/uL (1.0-4.0); LYMPHOCYTES % (AUTO) 37 % (12-44); MEAN CORPUSCULAR HEMOGLOBIN 30 pg (25-34); MEAN CORPUSCULAR HGB CONC 36 g/dL (32-36); MEAN CORPUSCULAR VOLUME 83 fL (80-99); MEAN PLATELET VOLUME 10.3 fL (9.0-12.2); MONOCYTES % (AUTO) 9 % (0-12); NEUTROPHILS # (AUTO) 6.3 10^3/uL (1.8-7.8); NEUTROPHILS % (AUTO) 53 % (42-75); PLATELET COUNT 264 10^3/uL (130-400); WHITE BLOOD COUNT 11.9 10^3/uL (4.3-11.0)
[2022-01-02 16:51] LABS: BILIRUBIN,URINE NEGATIVE (NEGATIVE); CLARITY,URINE CLEAR; COLOR,URINE YELLOW; GLUCOSE, URINE (UA) 3+ (NEGATIVE); KETONES,URINE NEGATIVE (NEGATIVE); LEUKOCYTE ESTERASE ,URINE NEGATIVE (NEGATIVE); NITRITE,URINE NEGATIVE (NEGATIVE); PROTEIN,URINE NEGATIVE (NEGATIVE)
[2022-01-02 16:52] LABS: ALBUMIN 4.2 GM/DL (3.2-4.5); POTASSIUM 3.4 MMOL/L (3.6-5.0)
[2022-01-02 16:53] LABS: CALCIUM 9.9 MG/DL (8.5-10.1)
[2022-01-02 16:55] LABS: TOTAL PROTEIN 7.2 GM/DL (6.4-8.2)
[2022-01-02 16:56] LABS: BILIRUBIN,TOTAL 0.7 MG/DL (0.1-1.0)
[2022-01-02 16:58] LABS: BACTERIA,URINE NEGATIVE /HPF; WBC,URINE 0-2 /HPF
[2022-01-02 16:58] LABS: CREATININE SERUM 0.88 MG/DL (0.60-1.30)
--- NOTE | 2022-01-02 17:00 | Diagnostic Imaging Report ---
INDICATION: Cough. TIME OF EXAM: 4:48 PM. COMPARISON: Correlation is made with prior chest of 05/18/2013. FINDINGS: The heart size is normal. The pulmonary vascularity is unremarkable. The lungs are clear. No infiltrate, effusion or pneumothorax is detected. IMPRESSION: No acute cardiopulmonary process is detected. Dictated by: Dictated on workstation # [id number]
[2022-01-02] MEDS ORDERED: MICO1KIT8 VG (17:28)
[2022-01-02 18:50] VITALS: BP 150/79
== END 2022-01-02 18:50 | disposition home or self-care (01) ==
LOC: EDUNIT# 16:20 → ER 16:22
DX: E11.65 Type 2 diabetes mellitus with hyperglycemia (principal); B37.3 Candidiasis of vulva and vagina; Z79.4 Long term (current) use of insulin
CPT/HCPCS: 36415; 71045; 80053; 81000; 82010; 82947; 84703; 85025

== ENCOUNTER → 2022-07-15 | Outpatient (CLI) | payer MEDICARE, MEDICAID ==
[~2022-07-15] MED LIST changes: -CHOL4PAC2 PO; +CHOL4POW4 PO; +MICO1KIT8 VG
--- NOTE | 2022-07-15 15:11 | Diagnostic Imaging Report ---
INDICATION: Migraines. FINDINGS: 5 views. Good alignment of the vertebral bodies. Body height and disc spaces are well-maintained. Oblique view shows widely patent foramen. No hypertrophic changes are seen. The odontoid is intact. The atlantoaxial joint is in good alignment. The prevertebral soft tissues are not widened. IMPRESSION: Normal cervical spine. Dictated by: Dictated on workstation # [id number]
== END ==
LOC: RAD 11:10
PROVIDERS: ATTEND Nurse Practitioner Family
DX: G43.009 Migraine without aura, not intractable, without status migrainosus (principal)
CPT/HCPCS: 72050

== ENCOUNTER 2022-08-13 03:03 | Inpatient (IN) | payer MEDICARE, MEDICAID ==
[2022-08-13] VITALS (14 sets, daily range): BP systolic 88–163; BP diastolic 45–105
[~2022-08-13] VITALS: Ht 167 cm; Wt 90.5 kg
[~2022-08-13 03:03] MED LIST changes: -LEVO75TA; +LEVO75TA PO; -PANT40TA52; +PANT40TA52 PO; -PRAZ1CAP2
[2022-08-13 03:24] LABS: BILIRUBIN,URINE NEGATIVE (NEGATIVE); CLARITY,URINE CLEAR; COLOR,URINE YELLOW; GLUCOSE, URINE (UA) 3+ (NEGATIVE); KETONES,URINE TRACE (NEGATIVE); LEUKOCYTE ESTERASE ,URINE NEGATIVE (NEGATIVE); NITRITE,URINE NEGATIVE (NEGATIVE); PH,URINE 6.5 (5-9); PROTEIN,URINE 2+ (NEGATIVE)
[2022-08-13] MEDS ORDERED: VANCOMYCIN INJECTION 1,000 MG in NS (IVPB) 250 ML IV ONE (03:30)
[2022-08-13] MEDS ORDERED: inSUlin (REGULAR) HUMAN 1 UNIT/0.01 ML (CHARGE PER UNIT) IV ONE (03:30)
[2022-08-13] MEDS ORDERED: NS IV 1000 ML 1,000 ML IV SCH ×2 (03:30→05:30)
[2022-08-13] MEDS ORDERED: MEROPENEM 500 MG in NS (IVPB) 100 ML IV ONE (03:30)
--- NOTE | 2022-08-13 03:36 | ED GU-Female ---
General Chief Complaint: Skin/Wound Problems Stated Complaint: PAINFUL CYST BY VAGINA Nursing Triage Note: C/O CYST NEAR VAGINA X1 WEEK WORSE TONIGHT. Source: patient, old records History of Present Illness Date Seen by Provider: Aug 13, 2022 Time Seen by Provider: 03:13 Initial Comments PT ARRIVES VIA POV FROM HOME WITH HER MOTHER C/O "CYST" TO RIGHT LABIA X 1 WEEK WAS SEEN BY OUTSIDE SALES ACCOUNT EXECUTIVE AT [facility] ON TUESDAY FOR THIS PROBLEM AND WAS GIVEN RX FOR BACTRIM AND REFERRED TO DR. MILLER--APPOINTMENT 09/29/22 PT STATES IT IS MUCH WORSE TONIGHT--INCREASED PAIN, INCREASED SWELLING, IS UNABLE TO SIT OR SLEEP DUE TO PAIN TOOK OXYCODONE 4 HOURS AGO--NO RELIEF PT HAD THE SAME THING ON THE LEFT SIDE LAST SEPTEMBER AND WAS SEEN HERE 10/16/21--WAS DX WITH BARTHOLIN'S CYST/ABSCESS, AND I&D DONE PT STATES SHE DID FINE AFTER THAT WAS REFERRED TO SENIOR CLIENT ADVISOR, PT STATES SHE DID FOLLOW UP AND WAS TOLD IT WAS FINE AND NO FURTHER TREATMENT NEEDED PT STATES THIS TIME IS MUCH WORSE THAN WHAT SHE HAD LAST SEPTEMBER--MUCH LARGER AND MUCH MORE PAINFUL NO FEVER NO DRAINAGE NO VAGINAL DISCHARGE NO DIFFICULTY URINATING, BUT IS VERY DIFFICULT TO WIPE DUE TO PAIN NO NAUSEA/VOMITING NO ABDOMINAL PAIN PT IS CURRENTLY ON MENSTRUAL CYCLE. PT IS LONGSTANDING INSULIN DEPENDENT DIABETIC WITH LONG HISTORY OF POOR CONTROL AND NON-COMPLIANCE, WITH MULTIPLE ADMITS FOR DKA HAS NOT CHECKED HER BLOOD SUGAR TONIGHT Allergies and Home Medications Allergies Coded Allergies: amoxicillin (Unverified Allergy, Severe, sob, rash, 11/01/10) clindamycin (Verified Allergy, Unknown, 08/16/21) Penicillins (Verified Adverse Reaction, Severe, RASH, 12/14/05) cefuroxime (Verified Adverse Reaction, Severe, RASH, 12/14/05) clarithromycin (Unverified Adverse Reaction, Mild, nausea and dizziness, 02/07/14) Patient Home Medication List Home Medication List Reviewed: Yes Atomoxetine HCl (Atomoxetine HCl) 60 Mg Capsule, 60 MG PO HS, (Reported) Entered as Reported by: LUZ SILVA on 08/13/22 3420 Last Action: Converted Divalproex Sodium (Divalproex Sodium ER) 500 Mg Tab.er.24h, 1,000 MG PO BID, (Reported) Entered as Reported by: LUZ SILVA on 08/13/221354 Last Action: Converted Fluoxetine HCl (Fluoxetine HCl) 20 Mg Capsule, 20 MG PO DAILY, (Reported) Entered as Reported by: LUZ SILVA on 08/13/221354 Last Action: Continued Guanfacine HCl (Guanfacine HCl ER) 3 Mg Tab.er.24h, 3 MG PO DAILY, (Reported) Entered as Reported by: LUZ SILVA on 08/13/221354 Last Action: Converted Insulin Degludec (Tresiba Flextouch U-200) 200 Unit/Ml (3 Ml) Insuln.pen, 120 UNITS SC HS, (Reported) Entered as Reported by: LUZ SILVA on 08/13/221354 Last Action: Converted Insulin Lispro-Aabc (Lyumjev Kwikpen U-100) 100 Unit/Ml Insuln.pen, 40 UNITS SC AC, (Reported) Entered as Reported by: LUZ SILVA on 08/13/221354 Last Action: Converted Levothyroxine Sodium (Synthroid) 75 Mcg Tablet, 75 MCG PO DAILY, (Reported) Entered as Reported by: EVA CORNELIUS on 05/03/18 0110 Last Action: Continued Multivit-Minerals/Folic Acid (Multivitamin Gummies) 200 Mcg Tab.chew, 200 MCG PO DAILY, (Reported) Entered as Reported by: LUZ SILVA on 08/13/221354 Last Action: Converted Olanzapine (Olanzapine) 15 Mg Tablet, 15 MG PO HS, (Reported) Entered as Reported by: LUZ SILVA on 08/13/221354 Last Action: Converted Pantoprazole Sodium (Pantoprazole Sodium) 40 Mg Tablet.dr, 40 MG PO HS, (Reported) Entered as Reported by: EVA CORNELIUS on 04/04/2016 Last Action: Continued Prazosin HCl (Prazosin HCl) 1 Mg Capsule, 3 MG PO HS, (Reported) Entered as Reported by: EVA CORNELIUS on 04/04/2016 Last Action: Converted Rimegepant Sulfate (Nurtec Odt) 75 Mg Tab.rapdis, 75 MG PO UD PRN for MIGRAINE, (Reported) Entered as Reported by: LUZ SILVA on 08/13/221354 Last Action: Converted Semaglutide (Ozempic) 1 Mg/0.75 Ml (4 Mg/3 Ml) Pen.injctr, 1 MG SC FRI @HS, (Reported) Entered as Reported by: LUZ SILVA on 08/13/22 135 Last Action: Converted Sulfamethoxazole/Trimethoprim (Bactrim Ds Tablet) 800 Mg-160 Mg Tablet, 1 EA PO BID, (Reported) Entered as Reported by: LUZ SILVA on 08/13/22 1355 Last Action: Held Discontinued Medications Albuterol Sulfate (Ventolin Hfa) 18 Gm Hfa.aer.ad, 2 PUFF IH Q6H PRN for SHORTNESS OF BREATH, (Reported) Discontinued Reason: No Longer Taking Entered as Reported by: SHELBY RING on 01/29/181726 Last Action: Discontinued Aripiprazole (Aripiprazole) 2 Mg Tablet, 2 MG PO DAILY, (Reported) Discontinued Reason: No Longer Taking Entered as Reported by: SHELBY RING on 01/29/181732 Last Action: Discontinued Atomoxetine HCl (Atomoxetine HCl) 40 Mg Capsule, (Reported) Discontinued Reason: No Longer Taking Entered as Reported by: EVA CORNELIUS on 04/04/20 0017 Last Action: Discontinued Cyclobenzaprine HCl (Cyclobenzaprine HCl) 10 Mg Tablet, 10 MG PO Q8H PRN for SPASMS Discontinued Reason: No Longer Taking Prescribed by: ELIAS COFFMAN on 08/16/211046 Last Action: Discontinued Cyproheptadine HCl (Cyproheptadine HCl) 4 Mg Tablet, (Reported) Discontinued Reason: No Longer Taking Entered as Reported by: EVA CORNELIUS on 05/03/18 0110 Last Action: Discontinued Guanfacine HCl (Guanfacine HCl ER) 1 Mg Tab.er.24h, 1 MG PO HS, (Reported) Discontinued Reason: No Longer Taking Entered as Reported by: SHELBY RING on 01/29/181726 Last Action: Discontinued Hydrocodone/Acetaminophen (Hydrocodone-Acetamin 5-325 mg) 1 Each Tablet, 1 TAB PO Q4H PRN for PAIN-MODERATE (5-7) Discontinued Reason: No Longer Taking Prescribed by: ELIAS COFFMAN on 08/16/211046 Last Action: Discontinued Insulin Aspart (Novolog Flexpen) 300 Units/3 Ml Solution, 25 UNITS SQ AC, (Reported) Discontinued Reason: No Longer Taking Entered as Reported by: SHELBY RING on 01/29/181835 Last Action: Discontinued Insulin Detemir (Levemir Flextouch) 100 Unit/1 Ml Insuln.pen, 67 UNITS SQ HS, (Reported) Discontinued Reason: No Longer Taking Entered as Reported by: SHELBY RING on 01/29/181835 Last Action: Discontinued Ketorolac Tromethamine (Ketorolac Tromethamine) 10 Mg Tablet, 10 MG PO Q6H Discontinued Reason: No Longer Taking Prescribed by: GAURANG STANTON on 08/22/21256 Last Action: Discontinued L. Acidophilus/Pectin, [place] (Acidophilus Capsule) 1 Each Capsule, 2 EACH PO QID Discontinued Reason: No Longer Taking Prescribed by: GAURANG STANTON on 11/14/20410 Last Action: Discontinued Lorazepam (Lorazepam) 1 Mg Tablet, 1 MG PO DAILY PRN for ANXIETY, (Reported) Discontinued Reason: No Longer Taking Entered as Reported by: SHELBY RING on 01/29/181726 Last Action: Discontinued Meclizine HCl (Meclizine HCl) 25 Mg Tablet, 50 MG PO Q6 PRN for DIZZINESS Discontinued Reason: No Longer Taking Prescribed by: GAURANG STANTON on 11/14/20410 Last Action: Discontinued Metformin HCl (Metformin HCl) 1,000 Mg Tablet, 1,000 MG PO BID, (Reported) Discontinued Reason: No Longer Taking Entered as Reported by: SHELBY RING on 01/29/181726 Last Action: Discontinued Miconazole Nitrate (Monistat 1) 1 Each Kit, 1 EACH VG ONCE Discontinued Reason: No Longer Taking Prescribed by: TANYA GONZALEZ on 01/02/221727 Last Action: Discontinued Nitrofurantoin Monohyd/M-Cryst (Macrobid 100 mg Capsule) 100 Mg Capsule, 1 TAB PO BID Discontinued Reason: No Longer Taking Prescribed by: GAURANG STANTON on 08/22/21318 Last Action: Discontinued Ondansetron (Ondansetron Odt) 4 Mg Tab.rapdis, 4 MG PO Q4H PRN for NAUSEA/VOMITING Discontinued Reason: No Longer Taking Prescribed by: JOHN ARTEAGA on 11/13/18 0509 Last Action: Discontinued Oxcarbazepine (Oxcarbazepine) 600 Mg Tablet, (Reported) Discontinued Reason: No Longer Taking Entered as Reported by: EVA CORNELIUS on 05/03/18109 Last Action: Discontinued Paliperidone (Paliperidone ER) 6 Mg Tab.er.24, (Reported) Discontinued Reason: No Longer Taking Entered as Reported by: EVA CORNELIUS on 04/04/20 0017 Last Action: Discontinued Quetiapine Fumarate (Quetiapine Fumarate) 200 Mg Tablet, 200 MG PO HS, (Reported) Discontinued Reason: No Longer Taking Entered as Reported by: SHELBY RING on 01/29/181721 Last Action: Discontinued Topiramate (Topiramate) 100 Mg Tablet, 150 MG PO BID, (Reported) Discontinued Reason: No Longer Taking Entered as Reported by: SHELBY RING on 01/29/181732 Last Action: Discontinued Vortioxetine Hydrobromide (Trintellix) 20 Mg Tablet, (Reported) Discontinued Reason: No Longer Taking Entered as Reported by: EVA CORNELIUS on 05/03/18109 Last Action: Discontinued Review of Systems Review of Systems Constitutional: no symptoms reported Respiratory: no symptoms reported Cardiovascular: no symptoms reported Gastrointestinal: no symptoms reported Genitourinary: see HPI LMP: Aug 12, 2022 Musculoskeletal: no symptoms reported Skin: see HPI Psychiatric/Neurological: No Symptoms Reported Endocrine: No Symptoms Reported (DENIES) Hematologic/Lymphatic: No Symptoms Reported Past Grmelot-Tzjmaq-Xzjuml Hx Patient Social History Tobacco Use?: Yes Tobacco type used: Cigarettes Smoking Status: Current Everyday Smoker Substance use?: Yes Substance type: Marijuana Alcohol Use?: Yes Alcohol Frequency: Once in a while Pt feels they are or have been: No Immunizations Up To Date Tetanus Booster (TDap): Less than 5yrs First/Initial COVID19 Vaccinat: X2 Second COVID19 Vaccination Stepan: 02/11 Third COVID19 Vaccination Date: 02/11 COVID19 Vaccine Pit Shovel Operator: EnevoJudi Seasonal Allergies Seasonal Allergies: Yes Past Medical History Surgery/Hospitalization HX: Surgeries: Yes Eye Surgery, Gallbladder, Orthopedic Respiratory: No Cardiac: Yes High Cholesterol Neurological: Yes Headaches /Migraines Reproductive Disorders: No Female Reproductive Disorders: Denies Sexually Transmitted Disease: No HIV/AIDS: No Genitourinary: Yes UTI-Chronic Gastrointestinal: Yes (S/P CHOLECYSTECTOMY) Gastroesophageal Reflux, Gall Bladder Disease Musculoskeletal: Yes (SCIATICA; RIGHT HIP SURGERY CHILD) Degenerate Disk Disease, Chronic Back Pain Endocrine: Yes (INSULIN + ORAL MEDICATIONS;MULTIPLE EPISODES DKA; NON- COMPLIANT) Diabetes, Insulin dep HEENT: Yes (EYE SURGERY) Loss of Vision: Bilateral Hearing Impairment: Denies Cancer: No Psychosocial: Yes (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) Anxiety, Suicide Attempts, Depression Integumentary: No Blood Disorders: No Family Medical History Family history: Allergy 03 MOTHER 09 BROTHER Family history: Arthritis 03 MOTHER Family history: Asthma 09 BROTHER 09 SISTER Family history: Cardiovascular disease 03 FATHER ("TAKES MEDICATION FOR HIS HEART") Family history: Diabetes mellitus 03 FATHER Family history: Hypertension 03 MOTHER Hypercholesterolemia 03 MOTHER Psychosocial problem 09 SISTER (DEPRESSION) Psychotic disorder 09 SISTER (ANXIETY) No Family History of: Abdominal aortic aneurysm Upland's disease Alcoholism Aphasia Cancer Cancer of colon Cataract Chest pain Congenital heart disease Congestive heart failure Cystic fibrosis Dementia Dysphagia Family history: Alzheimer's disease Family history: Breast disease Family history: Coronary thrombosis Family history: Gastrointestinal disease Family history: Glaucoma Family history: Osteoporosis Family history: Thyroid disorder Headache Hearing loss Heart disease Hereditary disease History of - anemia History of - disorder History of - respiratory disease History of drug abuse Human immunodeficiency virus (HIV) seropositivity Infertile Kidney disease Malignant neoplasm of lung Myocardial infarction Parkinson's disease Prostate cancer Seizure disorder Stroke Tuberculosis Visual impairment No Pertinent Family Hx SOCIAL HISTORY: -SMOKES AT LEAST 1 PPD -DRUGS--MARIJUANA -ETOH--BEER ON REGULAR BASIS PAST SURGICAL HISTORY: -CHOLECYSTECTOMY -EYE SURGERY -RIGHT HIP SURGERY CHILD MRI LUMBAR SPINE 2015 IMPRESSION: 1: There is an L5-S1 small right paracentral disc protrusion/herniation with annular tear which closely abuts the non-exited right S1 nerve root. There is a small amount of Modic type I degenerative signal changes at the L5-S1 levels posteriorly. 2: There is mild T10-T11 bilateral facet arthropathy. LONG HISTORY OF NON-COMPLIANCE Physical Exam Vital Signs Vital Signs - First Documented 08/13/22 08/13/22 08/13/22 03:10 06:03 15:54 Temp 36.0 Pulse 130 Resp 18 B/P (MAP) 140/90 (107) Pulse Ox 94 O2 Delivery Room Air O2 Flow Rate 2.00 FiO2 32 Capillary Refill : Less Than 3 Seconds Height, Weight, BMI Height: 5'6.00" Weight: 192lbs. 0oz. [id number]; 30.00 BMI Method:Stated General Appearance: WD/WN, no apparent distress, other (DOES NOT APPEAR ILL OR TO BE IN ANY DISCOMFORT OR DISTRESS. ) Cardiovascular: no edema, no murmur, tachycardia (130) Respiratory: normal breath sounds Gastrointestinal: non tender, soft Genital/Rectal: other (ENTIRE RIGHT LABIA WITH MARKED SWELLING, ERYTHEMA, WARMTH, AREA IS VERY FIRM AND INDURATED. NO FLUCTUANCE. NO POINTING. NO DRAINAGE. AREA EXTENDS FROM MONS AREA TO PERINEUM, BUT DOES NOT INVOLVE THE RECTUM. ) Back: normal inspection Extremities: normal inspection, normal capillary refill Neurologic/Psychiatric: general worker II-XII nml as tested, no motor/sensory deficits, alert, normal mood/affect, oriented x 3 Skin: normal color, warm/dry Focused Exam Sepsis Stage: Sepsis Possible Source: Skin/Soft Tissue Lactate Level Time of Focused Exam: 04:30 Respiratory: Normal Breath Sounds, No Accessory Muscle Use, No Respiratory Distress Cardiovascular: Tachycardia Capillary Refill: Less Than 3 Seconds Skin: normal color, warm/dry Lactic Acid Level Within 3hrs of presentation: Admin fluids, Admin ABX, Blood cultures prior to ABX's, Focus exam, Lactate level Progress/Results/Core Measures Suspected Sepsis SIRS Temperature: Pulse: 130 Respiratory Rate: 18 Laboratory Tests 08/14/22 03:10: White Blood Count 13.7H 08/15/22 05:32: White Blood Count 10.4 Blood Pressure 140 /90 Mean: 107 Laboratory Tests 08/13/22 07:45: Creatinine 0.80 08/14/22 03:10: Creatinine 0.95, Platelet Count 198, Total Bilirubin 0.6 08/15/22 05:32: Creatinine 0.67, Platelet Count 190, Total Bilirubin 0.2 Results/Orders Lab Results Laboratory Tests Test 08/14/22 06:19 08/14/22 07:17 08/14/22 10:26 08/14/22 15:50 Range/Units Glucometer 319 H 325 H 112 H 160 H 70-110 MG/DL Test 08/14/22 20:19 08/15/22 05:27 08/15/22 05:32 08/15/22 16:15 Range/Units Glucometer 281 H 74 130 H 70-110 MG/DL White Blood Count 10.4 4.3-11.0 10^3/uL Red Blood Count 3.08 L 3.80-5.11 10^6/uL Hemoglobin 9.4 L 11.5-16.0 g/dL Hematocrit 28 L 35-52 % Mean Corpuscular Volume 90 80-99 fL Mean Corpuscular Hemoglobin 31 25-34 pg Mean Corpuscular Hemoglobin Concent 34 32-36 g/dL Red Cell Distribution Width 12.5 10.0-14.5 % Platelet Count 190 130-400 10^3/uL Mean Platelet Volume 9.7 9.0-12.2 fL Immature Granulocyte % (Auto) 1 % Neutrophils (%) (Auto) 60 42-75 % Lymphocytes (%) (Auto) 25 12-44 % Monocytes (%) (Auto) 11 0-12 % Eosinophils (%) (Auto) 4 0-10 % Basophils (%) (Auto) 0 0-10 % Neutrophils # (Auto) 6.2 1.8-7.8 10^3/uL Lymphocytes # (Auto) 2.6 1.0-4.0 10^3/uL Monocytes # (Auto) 1.2 H 0.0-1.0 10^3/uL Eosinophils # (Auto) 0.4 H 0.0-0.3 10^3/uL Basophils # (Auto) 0.0 0.0-0.1 10^3/uL Immature Granulocyte # (Auto) 0.1 0.0-0.1 10^3/uL Sodium Level 134 L 135-145 MMOL/L Potassium Level 3.6 3.6-5.0 MMOL/L Chloride Level 106 98-107 MMOL/L Carbon Dioxide Level 22 21-32 MMOL/L Anion Gap 6 5-14 MMOL/L Blood Urea Nitrogen 17 7-18 MG/DL Creatinine 0.67 0.60-1.30 MG/DL Estimat Glomerular Filtration Rate 113 BUN/Creatinine Ratio 25 Glucose Level 77 70-105 MG/DL Calcium Level 8.5 8.5-10.1 MG/DL Corrected Calcium 9.5 8.5-10.1 MG/DL Magnesium Level 1.9 1.6-2.4 MG/DL Total Bilirubin 0.2 0.1-1.0 MG/DL Aspartate Amino Transf (AST/SGOT) 27 5-34 U/L Alanine Aminotransferase (ALT/SGPT) 16 0-55 U/L Alkaline Phosphatase 94 40-136 U/L Total Protein 5.6 L 6.4-8.2 GM/DL Albumin 2.8 L 3.2-4.5 GM/DL Test 08/15/22 20:18 Range/Units Glucometer 199 H 70-110 MG/DL My Orders Medications Given in ED Vital Signs/I&O 08/15/22 08/15/22 08/16/22 08/16/22 20:00 20:06 00:00 03:16 Temp 37.1 37.0 Pulse 100 103 103 Resp 18 16 B/P (MAP) 135/85 (102) 144/87 (106) Pulse Ox 91 91 91 O2 Delivery Room Air Room Air Room Air FiO2 21 08/16/22 04:00 Temp 36.7 Pulse 103 Resp 16 B/P (MAP) 157/82 (107) Pulse Ox 91 O2 Delivery Room Air Capillary Refill : Less Than 3 Seconds Blood Pressure Mean: 107 Point of Care Testing Finger Stick Blood Glucose: 528 Blood Glucose Action Taken: NURSE AND DOC NOTIFIED Progress Note : Progress Note ACCUCHECK 528 SEPSIS PROTOCOL INITIATED GIVEN: -IV FLUIDS -INSULIN -ANTIBIOTICS NO DETERIORATION IN PT'S CONDITION DURING ER STAY Diagnostic Imaging Comments CT ABDOMEN/PELVIS--RESULTED AFTER 0600, AFTER MY SHIFT WAS OVER Visualized portions of the lung bases are clear. There were no pleural fluid collections. There is no free intraperitoneal air. There are postoperative changes status post lumbar fusion at L5-S1. The liver shows no focal lesion. Patient has had prior cholecystectomy. The spleen, adrenals, and pancreas are normal. Kidneys bilaterally show no hydronephrosis. There is a nonocclusive stone in the midpole of the right kidney. There is no retroperitoneal mass or adenopathy. There is no ascites. There is no overt adnexal lesion. There is diffuse edema in the labial soft tissues, and perianal soft tissues, compatible with cellulitis. There is no well-defined pocket of fluid but there are some punctate areas of gas in the perianal soft tissues. IMPRESSION: Findings compatible with cellulitis in the labia and perineum as above with some punctate areas of gas in the perianal soft tissues. There is no well-defined fluid collection. There is no other acute finding. There is a nonocclusive stone in the right kidney. Reviewed: Reviewed by Me Departure Communication (Admissions) 0515--SPOKE WITH DR. BHATIA, HOSPITALIST FOR [facility], ACCEPTS PT FOR ADMIT. SHE WILL DO ADMIT ORDERS. ADVISES TO CONTACT DR. BERRY FOR SURGERY CONSULT 2481--SPOKE WITH DR. BERRY, SURGEON, HE WILL SEE PT IN CONSULT AND AGREES WITH OBTAINING A CT OF THE AREA, AND PT MAY PROCEED WITH ADMIT AND HE WILL REVIEW CT WHEN HE ARRIVES THIS MORNING. . Impression Primary Impression: Sepsis Additional Impressions: Abscess of right genital labia Diabetes mellitus, insulin dependent (IDDM), uncontrolled DKA (diabetic ketoacidosis) RIGHT LABIAL CELLULITIS/ABSCESS Electrolyte imbalance Disposition: ADMITTED INPATIENT Condition: Stable Admissions Decision to Admit Reason: Admit from ER (General) Decision to Admit/Date: Aug 13, 2022 Time/Decision to Admit Time: 04:40 Departure-Patient Inst. Referrals: [facility] (PCP/Family) Primary Care Physician GAURANG STANTON DO Aug 13, 2022 03:36
[2022-08-13 03:41] LABS: BACTERIA,URINE TRACE /HPF
[2022-08-13 03:56] LABS: BASOPHILS # (AUTO) 0.1 10^3/uL (0.0-0.1); BASOPHILS % (AUTO) 0 % (0-10); EOSINOPHILS # (AUTO) 0.3 10^3/uL (0.0-0.3); EOSINOPHILS % (AUTO) 2 % (0-10); HEMATOCRIT 35 % (35-52); HEMOGLOBIN 12.5 g/dL (11.5-16.0); LYMPHOCYTES # (AUTO) 1.5 10^3/uL (1.0-4.0); LYMPHOCYTES % (AUTO) 13 % (12-44); MEAN CORPUSCULAR HEMOGLOBIN 31 pg (25-34); MEAN CORPUSCULAR HGB CONC 35 g/dL (32-36); MEAN CORPUSCULAR VOLUME 86 fL (80-99); MONOCYTES # (AUTO) 1.7 10^3/uL (0.0-1.0); MONOCYTES % (AUTO) 14 % (0-12); NEUTROPHILS # (AUTO) 8.4 10^3/uL (1.8-7.8); NEUTROPHILS % (AUTO) 70 % (42-75); PLATELET COUNT 211 10^3/uL (130-400)
[2022-08-13 04:14] LABS: AMPHETAMINE SCREEN, URINE NEGATIVE (NEGATIVE); BARBITURATE SCREEN URINE NEGATIVE (NEGATIVE); BENZODIAZEPINES SCREEN URINE NEGATIVE (NEGATIVE); CANNABINOID SCREEN, URINE NEGATIVE (NEGATIVE); COCAINE SCREEN URINE NEGATIVE (NEGATIVE); METHADONE STAT NEGATIVE (NEGATIVE); OPIATE SCREEN URINE NEGATIVE (NEGATIVE); OXYCODONE STAT POSITIVE (NEGATIVE); PROPOXYPHENE STAT NEGATIVE (NEGATIVE); TRICYCLIC ANTIDEPRESSANTS SCRE NEGATIVE (NEGATIVE)
[2022-08-13 04:20] LABS: ALBUMIN 3.6 GM/DL (3.2-4.5); CHLORIDE 96 MMOL/L (98-107); POTASSIUM 3.9 MMOL/L (3.6-5.0); SODIUM 129 MMOL/L (135-145)
[2022-08-13 04:21] LABS: CALCIUM 9.3 MG/DL (8.5-10.1)
[2022-08-13 04:23] LABS: TOTAL PROTEIN 6.7 GM/DL (6.4-8.2)
[2022-08-13 04:24] LABS: BILIRUBIN,TOTAL 0.4 MG/DL (0.1-1.0); CARBON DIOXIDE 20 MMOL/L (21-32)
[2022-08-13 04:26] LABS: ALKALINE PHOSPHATASE 132 U/L (40-136); CREATININE SERUM 0.96 MG/DL (0.60-1.30); GFR ESTIMATED 76; GLUCOSE 647 MG/DL (70-105)
[2022-08-13 04:28] LABS: BUN/CREATININE RATIO 13
[2022-08-13 04:29] LABS: ALANINE AMINOTRANSFERASE 12 U/L (0-55)
[2022-08-13] MEDS ORDERED: VANCOMYCIN INJECTION 750 MG in NS (IVPB) 250 ML IV ONE (04:30)
[2022-08-13 04:40] LABS: ERYTHROCYTE SEDIMENTATION RATE 37 MM/HR (0-20)
[2022-08-13] MEDS ORDERED: NS 100 ML (IVPB) BAG IV ONE (05:00)
[2022-08-13] MEDS ORDERED: CATHETER FLUSH 10 ML SYR IV PRN (05:00)
[2022-08-13] MEDS ORDERED: IOHEXOL 350 MG/ML 100 ML (OMNIPAQUE 350) VIAL IV ONE (05:00)
[2022-08-13] MEDS ORDERED: HOLD METFORMIN - RECEIVED CONTRAST 20 ML VIAL IV SCH (05:00)
[2022-08-13] MEDS ORDERED: POTASSIUM CL 10MEQ/50ML IVPB 50 ML IV SCH ×2 (05:30)
[2022-08-13] MEDS ORDERED: ONDANSETRON 4 MG (ZOFRAN) ORAL DISSOLVE TAB PO PRN (05:30)
[2022-08-13] MEDS ORDERED: ONDANSETRON 4 MG/2 ML (SDV) Z0FRAN IV PRN (05:30)
[2022-08-13] MEDS ORDERED: LACTULOSE SYRUP 10GM/15ML (ENULOSE) 30ML UDC PO PRN (05:30)
[2022-08-13] MEDS ORDERED: MILK OF MAGNESIA 400 MG/5 ML 30 ML UDC PO PRN (05:30)
[2022-08-13] MEDS ORDERED: diphenhydrAMINE 25 MG TAB (BENADRYL) PO PRN (05:30)
[2022-08-13] MEDS ORDERED: VANCOMYCIN INJECTION 1,000 MG in NS (IVPB) 250 ML IV SCH (05:30)
[2022-08-13] MEDS ORDERED: LORazepam INJ 2 MG/ML (ATIVAN) VIAL IVP PRN (05:30)
[2022-08-13] MEDS ORDERED: BISACODYL 10 MG SUPP (DULCOLAX) PR PRN (05:30)
[2022-08-13] MEDS ORDERED: polyethylene glycoL POWDER 17 GM (MIRALAX) PACK PO PRN (05:30)
[2022-08-13] MEDS ORDERED: ANTACID SUSP 30 ML UDC (MYLANTA) PO PRN (05:30)
[2022-08-13] MEDS ORDERED: MELATONIN 3 MG TABLET PO PRN (05:30)
[2022-08-13] MEDS ORDERED: NS IV 500 ML 500 ML IV PRN (05:30)
[2022-08-13] MEDS ORDERED: diphenhydrAMINE 50 MG/ML INJ (BENADRYL) IVP PRN (05:30)
[2022-08-13] MEDS ORDERED: D5 1/2 NS 1000 ML IV SOLUTION 1,000 ML IV SCH (05:30)
[2022-08-13] MEDS ORDERED: CALCIUM CARBONATE 500 MG (TUMS) TAB.CHEW PO PRN (05:30)
[2022-08-13] MEDS: 1/2 NS IV SOLUTION 1,000 ML IV SCH ×2 (06:01→09:41)
--- NOTE | 2022-08-13 06:04 | Diagnostic Imaging Report ---
INDICATION: Labial cellulitis. TECHNIQUE: Multiple contiguous axial images were obtained through the abdomen and pelvis after administration of intravenous contrast. Auto Exposure Controls were utilized during the CT exam to meet ALARA standards for radiation dose reduction. All CT scans use one or more of the following dose optimizing techniques: automated exposure control, MA and/or KvP adjustment based on patient size and exam type or iterative reconstruction. Comparison made to prior CT of 11/14/2020. Visualized portions of the lung bases are clear. There were no pleural fluid collections. There is no free intraperitoneal air. There are postoperative changes status post lumbar fusion at L5-S1. The liver shows no focal lesion. Patient has had prior cholecystectomy. The spleen, adrenals, and pancreas are normal. Kidneys bilaterally show no hydronephrosis. There is a nonocclusive stone in the midpole of the right kidney. There is no retroperitoneal mass or adenopathy. There is no ascites. There is no overt adnexal lesion. There is diffuse edema in the labial soft tissues, and perianal soft tissues, compatible with cellulitis. There is no well-defined pocket of fluid but there are some punctate areas of gas in the perianal soft tissues. IMPRESSION: Findings compatible with cellulitis in the labia and perineum as above with some punctate areas of gas in the perianal soft tissues. There is no well-defined fluid collection. There is no other acute finding. There is a nonocclusive stone in the right kidney. Dictated by: Dictated on workstation # [id number]
[2022-08-13] MEDS: POTASSIUM CL 10MEQ/50ML IVPB 50 ML IV SCH (06:07)
[2022-08-13] MEDS: KCL 20 MEQ TAB (K-DUR) PO SCH (06:08)
[2022-08-13] MEDS: MAGNESIUM 1 GM/100 ML IVPB 100 ML IV SCH (06:08)
[2022-08-13] MEDS: MEROPENEM 500 MG in NS (IVPB) 100 ML IV SCH ×4 (06:08→23:24)
[2022-08-13] MEDS: ENOXAPARIN 40 MG/0.4 ML (LOVENOX) SYR SC SCH (06:11)
--- NOTE | 2022-08-13 06:36 | Tele-ICU Progress Note ---
Progress Note 42F with IDDM and multiple DKA admits now admitted with DKA and right labial abscess/cellulitus. Did have a previous episode of bartholin cyst/abscess requiring admission and I&D. Healed and did well in the interim. Developed a new labial "cyst" about a week ago. Given Bactrim and referred to Dr Herrera but couldn't get an appointment until 09/29. Tonight there was a significant increase in pain and swelling now preventing sleep, prompting her to present for evaluation. In ED sepsis protocol initiated, cultures drawn and abx given. - DM: with borderline DKA. Glucose 647, gap 20, beta-hydroxy 0.35. Insulin gtt protocol ordered. - abscess: has been initiated on merrem and vanco. Cultures drawn and pending. Surgery consulted for possible I&D. Focused Exam Lactate Level 08/13/22 03:44: Lactic Acid Level 1.54 Height, Weight, BMI Height: 5'6.00" Weight: 192lbs. 0oz. 87.101890ye; 30.33 BMI Method:Stated Time of Focused Exam: 04:30 Lactic Acid Level Laboratory Tests Test 08/13/22 03:44 Lactic Acid Level 1.54 MMOL/L (0.50-2.00) YANELY WALSH MD Aug 13, 2022 06:36
[2022-08-13 06:40] LABS: POTASSIUM 3.8 MMOL/L (3.6-5.0)
[2022-08-13 06:41] LABS: CALCIUM 8.7 MG/DL (8.5-10.1)
[2022-08-13 06:46] LABS: CREATININE SERUM 0.84 MG/DL (0.60-1.30)
[2022-08-13] MEDS: HYDROmorphone 2 MG/ML VIAL (DILAUDID) IV PRN ×3 (07:40→17:54)
--- NOTE | 2022-08-13 07:43 | Consultation - Surgery ---
TINA SERRATO 08/13/22 0743: History of Present Illness History of Present Illness Patient Consulted On(bo/time) 08/13/22 07:35 Date Seen by Provider: Aug 13, 2022 Time Seen by Provider: 07:15 Reason for Visit: DKA and Rt Labial Cellulitis History of Present Illness 42 F was admitted over night for DKA and Rt labial cellulitis with possible abscess. Pt states the lesion and pain started 1 week ago and was started on Bactrim per Sharon, but failed improve. Pt reports a sharp pain of the vulva that is 9/10 and is localized. Pain worsens with movement, sitting, wiping, and palpation. Pt also reports mild numbness of posterior sacral region that started at the same time as the lesion. pain has been alleviated with warm water but failed when she tried yesterday. Pt reports serous discharge when she popped it last week. Denies SOB, chest pain, fever chills, n/v, or issues with voiding or BM. Pt currently on menstrual cycle and reports no abnormalities on timing or flow. Allergies and Home Medications Allergies Coded Allergies: amoxicillin (Unverified Allergy, Severe, sob, rash, 11/01/10) clindamycin (Verified Allergy, Unknown, 08/16/21) Penicillins (Verified Adverse Reaction, Severe, RASH, 12/14/05) cefuroxime (Verified Adverse Reaction, Severe, RASH, 12/14/05) clarithromycin (Unverified Adverse Reaction, Mild, nausea and dizziness, 02/07/14) Patient Home Medication List Home Medication List Reviewed: Yes Albuterol Sulfate (Ventolin Hfa) 18 Gm Hfa.aer.ad, 2 PUFF IH Q6H PRN for SHORTNESS OF BREATH, (Reported) Entered as Reported by: SHELBY RING on 01/29/18 1727 Aripiprazole (Aripiprazole) 2 Mg Tablet, 2 MG PO DAILY, (Reported) Entered as Reported by: SHELBY RING on 01/29/18 1733 Atomoxetine HCl (Atomoxetine HCl) 40 Mg Capsule, (Reported) Entered as Reported by: EVA CORNELIUS on 04/04/20 0017 Cyclobenzaprine HCl (Cyclobenzaprine HCl) 10 Mg Tablet, 10 MG PO Q8H PRN for SPASMS Prescribed by: ELIAS COFFMAN on 08/16/21 1047 Cyproheptadine HCl (Cyproheptadine HCl) 4 Mg Tablet, (Reported) Entered as Reported by: EVA CORNELIUS on 05/03/18 011 Guanfacine HCl (Guanfacine HCl ER) 1 Mg Tab.er.24h, 1 MG PO HS, (Reported) Entered as Reported by: SHELBY RING on 01/29/18 172 Hydrocodone/Acetaminophen (Hydrocodone-Acetamin 5-325 mg) 1 Each Tablet, 1 TAB PO Q4H PRN for PAIN-MODERATE (5-7) Prescribed by: ELIAS COFFMAN on 08/16/21 104 Insulin Aspart (Novolog Flexpen) 300 Units/3 Ml Solution, 25 UNITS SQ AC, (Reported) Entered as Reported by: SHELBY RING on 01/29/181835 Insulin Detemir (Levemir Flextouch) 100 Unit/1 Ml Insuln.pen, 67 UNITS SQ HS, (Reported) Entered as Reported by: SHELBY RING on 01/29/181835 Ketorolac Tromethamine (Ketorolac Tromethamine) 10 Mg Tablet, 10 MG PO Q6H Prescribed by: GAURANG STANTON on 08/22/21 025 L. Acidophilus/Pectin, [place] (Acidophilus Capsule) 1 Each Capsule, 2 EACH PO QID Prescribed by: GAURANG STANTON on 11/14/20410 Levothyroxine Sodium (Synthroid) 75 Mcg Tablet, (Reported) Entered as Reported by: EVA CORNELIUS on 05/03/18 011 Lorazepam (Lorazepam) 1 Mg Tablet, 1 MG PO DAILY PRN for ANXIETY, (Reported) Entered as Reported by: SHELBY RING on 01/29/181726 Meclizine HCl (Meclizine HCl) 25 Mg Tablet, 50 MG PO Q6 PRN for DIZZINESS Prescribed by: GAURANG STANTON on 11/14/20 041 Metformin HCl (Metformin HCl) 1,000 Mg Tablet, 1,000 MG PO BID, (Reported) Entered as Reported by: SHELBY RING on 01/29/181726 Miconazole Nitrate (Monistat 1) 1 Each Kit, 1 EACH VG ONCE Prescribed by: TANYA GONZALEZ on 01/02/22 172 Nitrofurantoin Monohyd/M-Cryst (Macrobid 100 mg Capsule) 100 Mg Capsule, 1 TAB PO BID Prescribed by: GAURANG STANTON on 08/22/21 0319 Ondansetron (Ondansetron Odt) 4 Mg Tab.rapdis, 4 MG PO Q4H PRN for NAUSEA/VOMITING Prescribed by: JOHN ARTEAGA on 11/13/18 0509 Oxcarbazepine (Oxcarbazepine) 600 Mg Tablet, (Reported) Entered as Reported by: EVA CORNELIUS on 05/03/18 0110 Paliperidone (Paliperidone ER) 6 Mg Tab.er.24, (Reported) Entered as Reported by: EVA CORNELIUS on 04/04/2016 Pantoprazole Sodium (Pantoprazole Sodium) 40 Mg Tablet.dr, (Reported) Entered as Reported by: EVA CORNELIUS on 04/04/2016 Prazosin HCl (Prazosin HCl) 1 Mg Capsule, (Reported) Entered as Reported by: EVA CORNELIUS on 04/04/2016 Quetiapine Fumarate (Quetiapine Fumarate) 200 Mg Tablet, 200 MG PO HS, (Reported) Entered as Reported by: SHELBY RING on 01/29/18 1722 Topiramate (Topiramate) 100 Mg Tablet, 150 MG PO BID, (Reported) Entered as Reported by: SHELBY RING on 01/29/18 1733 Vortioxetine Hydrobromide (Trintellix) 20 Mg Tablet, (Reported) Entered as Reported by: EVA CORNELIUS on 05/03/18109 Past Lmlglov-Zkbkmv-Pwdozu Hx Patient Social History Smoking Status: Current Everyday Smoker Former Smoker, Quit: Oct 27, 2020 Type Used: Cigarettes 2nd Hand Smoke Exposure: Yes Recent Hopitalizations: No Alcohol Use?: No Substance type: Marijuana Have you traveled recently?: No Immunizations Up To Date Tetanus Booster (TDap): Less than 5yrs Date of Pneumonia Vaccine: Oct 24, 2010 Date of Influenza Vaccine: Aug 30, 2015 Seasonal Allergies Seasonal Allergies: Yes Surgeries History of Surgeries: Yes Surgeries: Eye Surgery, Gallbladder, Orthopedic Respiratory History of Respiratory Disorde: No Cardiovascular History of Cardiac Disorders: Yes Cardiac Disorders: High Cholesterol Neurological History of Neurological Disord: Yes Neurological Disorders: Headaches /Migraines Reproductive System Hx Reproductive Disorders: No Sexually Transmitted Disease: No HIV/AIDS: No Female Reproductive Disorders: Denies Genitourinary History of Genitourinary Disor: Yes Genitourinary Disorders: UTI-Chronic Gastrointestinal History of Gastrointestinal Di: Yes (S/P CHOLECYSTECTOMY) Gastrointestinal Disorders: Gastroesophageal Reflux, Gall Bladder Disease Musculoskeletal History of Musculoskeletal Dis: Yes (SCIATICA; RIGHT HIP SURGERY CHILD) Musculoskeletal Disorders: Degenerate Disk Disease, Chronic Back Pain Endocrine History of Endocrine Disorders: Yes (INSULIN + ORAL MEDICATIONS;MULTIPLE EPISODES DKA; NON-COMPLIANT) Endocrine Disorders: Diabetes, Insulin dep HEENT History of HEENT Disorders: Yes (EYE SURGERY) Loss of Vision: Bilateral Hearing Impairment: Denies Cancer History of Cancer: No Psychosocial History of Psychiatric Problem: Yes (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) Behavioral Health Disorders: Anxiety, Suicide Attempts, Depression Integumentary History of Skin or Integumenta: No Blood Transfusions History of Blood Disorders: No Family Medical History Significant Family History: No Pertinent Family Hx Family Medial History: Family history: Allergy 03 MOTHER 09 BROTHER Family history: Arthritis 03 MOTHER Family history: Asthma 09 BROTHER 09 SISTER Family history: Cardiovascular disease 03 FATHER ("TAKES MEDICATION FOR HIS HEART") Family history: Diabetes mellitus 03 FATHER Family history: Hypertension 03 MOTHER Hypercholesterolemia 03 MOTHER Psychosocial problem 09 SISTER (DEPRESSION) Psychotic disorder 09 SISTER (ANXIETY) No Family History of: Abdominal aortic aneurysm Moriches's disease Alcoholism Aphasia Cancer Cancer of colon Cataract Chest pain Congenital heart disease Congestive heart failure Cystic fibrosis Dementia Dysphagia Family history: Alzheimer's disease Family history: Breast disease Family history: Coronary thrombosis Family history: Gastrointestinal disease Family history: Glaucoma Family history: Osteoporosis Family history: Thyroid disorder Headache Hearing loss Heart disease Hereditary disease History of - anemia History of - disorder History of - respiratory disease History of drug abuse Human immunodeficiency virus (HIV) seropositivity Infertile Kidney disease Malignant neoplasm of lung Myocardial infarction Parkinson's disease Prostate cancer Seizure disorder Stroke Tuberculosis Visual impairment Review of Systems-General Constitutional: No chills, No fever EENTM: No hearing loss, No blurred vision Respiratory: No cough, No short of breath Cardiovascular: No chest pain, No palpitations Gastrointestinal: No abdominal pain, No constipation Genitourinary: No decreased output, No discharge, No dysuria; pain (upon wiping ) Musculoskeletal: back pain Skin: lumps (rt labia ), other (cellulitis of rt labia ) Psychiatric/Neurological: Anxiety, Paresthesia (sacral resion ) Physical Exam-General Problems Physical Exam Vital Signs Vital Signs - First Documented 08/13/22 08/13/22 03:10 06:03 Temp 36.0 Pulse 130 Resp 18 B/P (MAP) 140/90 (107) Pulse Ox 94 O2 Delivery Room Air O2 Flow Rate 2.00 Capillary Refill : Less Than 3 Seconds General Appearance: WD/WN, no apparent distress Eyes: Left Eye Abnormal EOM HEENT: No scleral icterus (R), No scleral icterus (L), No photophobia Neck: supple, normal inspection Respiratory: chest non-tender, lungs clear, normal breath sounds, no respiratory distress, no accessory muscle use Cardiovascular: no edema, no murmur, tachycardia Peripheral Pulses: 3+ Dorsalis Pedis (R), 3+ Left Dors-Pedis (L), 3+ Radial Pul ses (R), 3+ Radial Pulses (L) Gastrointestinal: normal bowel sounds, non tender, soft, no organomegaly, no pulsatile mass Genital/Rectal: tenderness, other (rt labial swelling with diffuse errythema of the vulva) Back: other (numbness of sacral region that waxes and wanes ) Extremities: non-tender, no calf tenderness, normal capillary refill Neurologic/Psychiatric: alert, oriented x 3 Skin: normal color, warm/dry Lymphatic: no adenopathy Data Review Labs Laboratory Tests 08/13/22 03:15: Urine Color YELLOW, Urine Clarity CLEAR, Urine pH 6.5, Urine Specific [place] 1.010L, Urine Protein 2+H, Urine Glucose (UA) 3+H, Urine Ketones TRACEH, Urine Nitrite NEGATIVE, Urine Bilirubin NEGATIVE, Urine Urobilinogen 0.2, Urine Leukocyte Esterase NEGATIVE, Urine RBC (Auto) 3+H, Urine RBC NONE, Urine WBC 2- 5, Urine Squamous Epithelial Cells 2-5, Urine Crystals NONE, Urine Bacteria TRACE, Urine Casts NONE, Urine Mucus NEGATIVE, Urine Culture Indicated CULTURE PENDING, Urine Opiates Screen NEGATIVE, Urine Oxycodone Screen POSITIVEH, Urine Methadone Screen NEGATIVE, Urine Propoxyphene Screen NEGATIVE, Urine Barbiturates Screen NEGATIVE, Ur Tricyclic Antidepressants Screen NEGATIVE, Urine Phencyclidine Screen NEGATIVE, Urine Amphetamines Screen NEGATIVE, Urine Methamphetamines Screen NEGATIVE, Urine Benzodiazepines Screen NEGATIVE, Urine Cocaine Screen NEGATIVE, Urine Cannabinoids Screen NEGATIVE 08/13/22 03:20: Glucometer 528*H 08/13/22 03:44: White Blood Count 12.0H, Red Blood Count 4.09, Hemoglobin 12.5, Hematocrit 35, Mean Corpuscular Volume 86, Mean Corpuscular Hemoglobin 31, Mean Corpuscular Hemoglobin Concent 35, Red Cell Distribution Width 12.1, Platelet Count 211, Mean Platelet Volume 10.0, Immature Granulocyte % (Auto) 1, Neutrophils (%) (Auto) 70, Lymphocytes (%) (Auto) 13, Monocytes (%) (Auto) 14H, Eosinophils (%) (Auto) 2, Basophils (%) (Auto) 0, Neutrophils # (Auto) 8.4H, Lymphocytes # ( Auto) 1.5, Monocytes # (Auto) 1.7H, Eosinophils # (Auto) 0.3, Basophils # (Auto) 0.1, Immature Granulocyte # (Auto) 0.1, Erythrocyte Sedimentation Rate 37H, Sodium Level 129L, Potassium Level 3.9, Chloride Level 96L, Carbon Dioxide Level 20L, Anion Gap 13, Blood Urea Nitrogen 12, Creatinine 0.96, Estimat Glomerular Filtration Rate 76, BUN/Creatinine Ratio 13, Glucose Level 647*H, Lactic Acid Level 1.54, Calcium Level 9.3, Corrected Calcium 9.6, Total Bilirubin 0.4, Aspartate Amino Transf (AST/SGOT) 12, Alanine Aminotransferase (ALT/SGPT) 12, Alkaline Phosphatase 132, C-Reactive Protein High Sensitivity 6.88H, Total Protein 6.7, Albumin 3.6, Beta-Hydroxybutyrate (Chem panel) 0.35H, Procalcitonin 0.07, Serum Alcohol < 10 08/13/22 05:24: Glucometer 400*H 08/13/22 06:19: Sodium Level 132L, Potassium Level 3.8, Chloride Level 100, Carbon Dioxide Level 21, Anion Gap 11, Blood Urea Nitrogen 11, Creatinine 0.84, Estimat Glomerular Filtration Rate 89, BUN/Creatinine Ratio 13, Glucose Level 513*H, Calcium Level 8.7, Beta-Hydroxybutyrate (Chem panel) 0.23 08/13/22 06:53: Glucometer 396H Assessment/Plan Assessment/Plan Assessment/Plan DKA Rt labial celluilitis HTN tachycardia continue sliding scale insulin continue electrolyte replacement and management continue IV fluids continue IV abx therapy proper wound care of rt labia with monitoring of edema and any discharge Blood Cx Urine Cx pending BERRY,ESAU D DO 08/13/22 0932: History of Present Illness History of Present Illness History of Present Illness Consult requested by Dr. Yates for labial cellulitis. Patient is a 42 year old femal with DKA and right labial cellulitis. She has had it for about [address] on Bactrim. This is worsening over the last day. Severe pain in the area. Worse with movement or touching area. Nothing making better now. Popped the area last week. On DKA protocol. Ct scan showing changes of cellulitis with some small amount of air under the skin. Allergies and Home Medications Allergies Coded Allergies: amoxicillin (Unverified Allergy, Severe, sob, rash, 11/01/10) clindamycin (Verified Allergy, Unknown, 08/16/21) Penicillins (Verified Adverse Reaction, Severe, RASH, 12/14/05) cefuroxime (Verified Adverse Reaction, Severe, RASH, 12/14/05) clarithromycin (Unverified Adverse Reaction, Mild, nausea and dizziness, 02/07/14) Patient Home Medication List Home Medication List Reviewed: Yes Albuterol Sulfate (Ventolin Hfa) 18 Gm Hfa.aer.ad, 2 PUFF IH Q6H PRN for SHORTNESS OF BREATH, (Reported) Entered as Reported by: SHELBY RING on 01/29/18 1727 Aripiprazole (Aripiprazole) 2 Mg Tablet, 2 MG PO DAILY, (Reported) Entered as Reported by: SHELBY RING on 01/29/18 1733 Atomoxetine HCl (Atomoxetine HCl) 40 Mg Capsule, (Reported) Entered as Reported by: EVA CORNELIUS on 04/04/20 0017 Cyclobenzaprine HCl (Cyclobenzaprine HCl) 10 Mg Tablet, 10 MG PO Q8H PRN for SPASMS Prescribed by: ELIAS COFFMAN on 08/16/21 1047 Cyproheptadine HCl (Cyproheptadine HCl) 4 Mg Tablet, (Reported) Entered as Reported by: EVA CORNELIUS on 05/03/18 0110 Guanfacine HCl (Guanfacine HCl ER) 1 Mg Tab.er.24h, 1 MG PO HS, (Reported) Entered as Reported by: SHELBY RING on 01/29/18 1727 Hydrocodone/Acetaminophen (Hydrocodone-Acetamin 5-325 mg) 1 Each Tablet, 1 TAB PO Q4H PRN for PAIN-MODERATE (5-7) Prescribed by: ELIAS COFFMAN on 08/16/21 1047 Insulin Aspart (Novolog Flexpen) 300 Units/3 Ml Solution, 25 UNITS SQ AC, (Reported) Entered as Reported by: SHELBY RING on 01/29/18 183 Insulin Detemir (Levemir Flextouch) 100 Unit/1 Ml Insuln.pen, 67 UNITS SQ HS, (Reported) Entered as Reported by: SHELBY RING on 01/29/18 183 Ketorolac Tromethamine (Ketorolac Tromethamine) 10 Mg Tablet, 10 MG PO Q6H Prescribed by: GAURANG STANTON on 08/22/21 025 L. Acidophilus/Pectin, [place] (Acidophilus Capsule) 1 Each Capsule, 2 EACH PO QID Prescribed by: GAURANG STANTON on 11/14/20 041 Levothyroxine Sodium (Synthroid) 75 Mcg Tablet, (Reported) Entered as Reported by: EVA CORNELIUS on 05/03/18 0110 Lorazepam (Lorazepam) 1 Mg Tablet, 1 MG PO DAILY PRN for ANXIETY, (Reported) Entered as Reported by: SHELBY RING on 01/29/181726 Meclizine HCl (Meclizine HCl) 25 Mg Tablet, 50 MG PO Q6 PRN for DIZZINESS Prescribed by: GAURANG STANTON on 11/14/20 041 Metformin HCl (Metformin HCl) 1,000 Mg Tablet, 1,000 MG PO BID, (Reported) Entered as Reported by: SHELBY RING on 01/29/18 172 Miconazole Nitrate (Monistat 1) 1 Each Kit, 1 EACH VG ONCE Prescribed by: TANYA GONZALEZ on 01/02/22 172 Nitrofurantoin Monohyd/M-Cryst (Macrobid 100 mg Capsule) 100 Mg Capsule, 1 TAB PO BID Prescribed by: GAURANG STANTON on 08/22/21 0319 Ondansetron (Ondansetron Odt) 4 Mg Tab.rapdis, 4 MG PO Q4H PRN for NAUSEA/VOMITING Prescribed by: JOHN ARTEAGA on 11/13/18 0509 Oxcarbazepine (Oxcarbazepine) 600 Mg Tablet, (Reported) Entered as Reported by: EVA CORNELIUS on 05/03/18109 Paliperidone (Paliperidone ER) 6 Mg Tab.er.24, (Reported) Entered as Reported by: EVA CORNELIUS on 04/04/2016 Pantoprazole Sodium (Pantoprazole Sodium) 40 Mg Tablet.dr, (Reported) Entered as Reported by: EVA CORNELIUS on 04/04/2016 Prazosin HCl (Prazosin HCl) 1 Mg Capsule, (Reported) Entered as Reported by: EVA CORNELIUS on 04/04/2016 Quetiapine Fumarate (Quetiapine Fumarate) 200 Mg Tablet, 200 MG PO HS, (Reported) Entered as Reported by: SHELBY RING on 01/29/18 172 Topiramate (Topiramate) 100 Mg Tablet, 150 MG PO BID, (Reported) Entered as Reported by: SHELBY RING on 01/29/18 1733 Vortioxetine Hydrobromide (Trintellix) 20 Mg Tablet, (Reported) Entered as Reported by: EVA CORNELIUS on 05/03/18109 Past Juyjvsi-Bcbucy-Tjtlxq Hx Reviewed Nursing Assessment Reviewed/Agree w Nursing PMH: Yes Family Medical History Significant Family History: No Pertinent Family Hx Family Medial History: Family history: Allergy 03 MOTHER 09 BROTHER Family history: Arthritis 03 MOTHER Family history: Asthma 09 BROTHER 09 SISTER Family history: Cardiovascular disease 03 FATHER ("TAKES MEDICATION FOR HIS HEART") Family history: Diabetes mellitus 03 FATHER Family history: Hypertension 03 MOTHER Hypercholesterolemia 03 MOTHER Psychosocial problem 09 SISTER (DEPRESSION) Psychotic disorder 09 SISTER (ANXIETY) No Family History of: Abdominal aortic aneurysm Moriches's disease Alcoholism Aphasia Cancer Cancer of colon Cataract Chest pain Congenital heart disease Congestive heart failure Cystic fibrosis Dementia Dysphagia Family history: Alzheimer's disease Family history: Breast disease Family history: Coronary thrombosis Family history: Gastrointestinal disease Family history: Glaucoma Family history: Osteoporosis Family history: Thyroid disorder Headache Hearing loss Heart disease Hereditary disease History of - anemia History of - disorder History of - respiratory disease History of drug abuse Human immunodeficiency virus (HIV) seropositivity Infertile Kidney disease Malignant neoplasm of lung Myocardial infarction Parkinson's disease Prostate cancer Seizure disorder Stroke Tuberculosis Visual impairment Review of Systems-General Constitutional: No chills, No fever EENTM: No hearing loss, No blurred vision Respiratory: No cough, No short of breath Cardiovascular: No chest pain, No palpitations Gastrointestinal: No abdominal pain, No constipation Genitourinary: No decreased output, No discharge, No dysuria; pain (right labia) Musculoskeletal: back pain Skin: lumps (rt labia redness), other (cellulitis of rt labia ) Psychiatric/Neurological: Anxiety; Denies Depressed, Denies Emotional Problems; Paresthesia (sacral region ) Physical Exam-General Problems Physical Exam General Appearance: no apparent distress, obese HEENT: PERRL/EOMI, normal ENT inspection Neck: non-tender, supple, normal inspection Respiratory: chest non-tender, no respiratory distress, no accessory muscle use Cardiovascular: no JVD, tachycardia Gastrointestinal: non tender, soft Genital/Rectal: tenderness (female nurse 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 We discussed options of incsision and drainage and all other indicated procedures feel this could be a necrotizing fasciitis so taking to the OR at this time when or available patient agrees with plan continue abx patient understands need for wound care postoperatively Supervisory-Addendum Brief Verification & Attestation Participated in pt care: history, MDM, physical Personally performed: exam, history, MDM, supervision of care Care discussed with: Medical Student Procedures: n/a Results interpretation: Verified all documentation Verification and Attestation of Medical Student E/M Service A medical student performed and documented this service in my presence. I reviewed and verified all information documented by the medical student and made modifications to such information, when appropriate. I personally performed the physical exam and medical decision making. Esau Berry, Aug 13, 2022,09:37 TINA CABELLO Aug 13, 2022 07:43 ESAU BERRY DO Aug 13, 2022 09:32
[2022-08-13 08:09] LABS: POTASSIUM 4.1 MMOL/L (3.6-5.0)
[2022-08-13 08:10] LABS: CALCIUM 8.8 MG/DL (8.5-10.1)
[2022-08-13 08:15] LABS: CREATININE SERUM 0.8 MG/DL (0.60-1.30)
[2022-08-13] MEDS ORDERED: LIDOCAINE/EPI 1%-1:100,000 (XYLOCAINE) 10 ML ONE (09:18)
[2022-08-13] MEDS ORDERED: SEVOFLURANE (ULTANE) 15 ML INHAL SOLN ONE (09:26)
[2022-08-13] MEDS ORDERED: proPOfol 200 MG/20 ML (DIPRIVAN) VIAL IV ONE (09:26)
[2022-08-13] MEDS ORDERED: MIDAZOLAM 2 MG/2 ML (VERSED) VIAL ONE (09:26)
[2022-08-13] MEDS ORDERED: ONDANSETRON 4 MG/2 ML (SDV) Z0FRAN ONE (09:26)
[2022-08-13] MEDS ORDERED: LIDOCAINE PF 2% 5 ML (XYLOCAINE) VIAL ONE (09:26)
[2022-08-13] MEDS ORDERED: fentaNYL INJ 100 MCG/2 ML AMP ONE (09:26)
[2022-08-13] MEDS: DOCUSATE SODIUM 100 MG (COLACE) CAP PO SCH ×2 (09:40→20:43)
[2022-08-13] MEDS: SENNOSIDES 8.6 MG (SENOKOT) TAB PO SCH ×2 (09:41→20:43)
[2022-08-13] MEDS ORDERED: MEPERIDINE (DEMEROL) INJ 50 MG/ML IVP ONE (10:30)
[2022-08-13] MEDS ORDERED: HYDROmorphone 2 MG/ML VIAL (DILAUDID) IV ONE (10:30)
[2022-08-13] MEDS ORDERED: morphine INJ 10 MG/ML 1ML (SYR OR VIAL) IVP ONE (10:30)
[2022-08-13] MEDS ORDERED: PROMETHAZINE INJ 25 MG/ML (PHENERGAN) AMP IVP ONE (10:30)
--- NOTE | 2022-08-13 10:31 | Anesthesia-General Post-Op ---
General Patient Condition Mental Status/LOC: Same as Preop Cardiovascular: Satisfactory Nausea/Vomiting: Absent Respiratory: Satisfactory Pain: Controlled Complications: Absent Post Op Complications Complications None Follow Up Care/Instructions Patient Instructions None needed. Anesthesia/Patient Condition Patient Condition Patient is doing well, no complaints, stable vital signs, no apparent adverse anesthesia problems. No complications reported per nursing. ABRAHAN SNOW CRNA Aug 13, 2022 10:31
[2022-08-13] MEDS: ONDANSETRON 4 MG/2 ML (SDV) Z0FRAN IVP PRN (11:37)
[2022-08-13] MEDS: inSUlin ASPART (NovoLOG) 1 UNIT/0.01 ML (CHARGE PER UNIT) SC SCH ×2 (11:59→17:48)
--- NOTE | 2022-08-13 12:24 | Progress Note-Post Operative ---
Post-Operative Progess Note Surgeon (s)/Director Nurses' Registry (s) Surgeon ESAU BERRY DO Director Nurses' Registry: na Pre-Operative Diagnosis right labial abscess Post-Operative Diagnosis same Procedure & Operative Findings Date of Procedure 08/13/22 Procedure Performed/Findings incision and drainage right labial abscess Anesthesia Type general Estimated Blood Loss Estimated blood loss (mL): minimal Specimens/Packing Specimens Removed culture ESAU BERRY DO Aug 13, 2022 12:24
[2022-08-13] MEDS ORDERED: GUAN3TAB2 PO ×2 (13:55)
[2022-08-13] MEDS ORDERED: SEMA1PEN3 SC ×2 (13:55)
[2022-08-13] MEDS ORDERED: INSU100I66 SC (13:55)
[2022-08-13] MEDS ORDERED: DIVA500T15 PO ×2 (13:55)
[2022-08-13] MEDS ORDERED: FLUO20CA48 PO ×2 (13:55)
[2022-08-13] MEDS ORDERED: ATOM60CA4 PO ×2 (13:55)
[2022-08-13] MEDS ORDERED: SULF-221 PO (13:55)
[2022-08-13] MEDS ORDERED: INSU200I4 SC (13:55)
[2022-08-13] MEDS ORDERED: RIME75TA PO ×2 (13:55)
[2022-08-13] MEDS ORDERED: OLAN15TA35 PO ×2 (13:55)
[2022-08-13] MEDS ORDERED: MULT200T12 PO ×2 (13:55)
--- NOTE | 2022-08-13 14:20 | History & Physical-Hospitalist ---
MARTHA CARRILLO 08/13/22 1420: History of Present Illness HPI/Chief Complaint CC: Right labial abscess, DKA HPI: Ms. Kaila Kulkarni, 42 F, with hx of insulin dependent type 2 diabetes was admitted from the ED for DKA and Right labial abscess. In ED she was found to have BS of 513 and elevated white count, with subsequent administration of insulin, vancomycin, and IVF. She admits to not always taking her insulin medications (humalog and ozempic) as rx. 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 States despite tx she has worsening pain (especially with wiping), redness and swelling of the right labia. Reports x 1 year ago she had a similar lesion on the left labia with dx of Bartholin's cyst and successful I&D. Reports mild numbness of posterior sacral region starting same time as the lesion. Pt reports serous discharge when she popped it last week. Denies SOB, chest pain, fever chills, n/v, or issues with voiding or BM. Pt currently on menstrual cycle and reports no abnormalities on timing or flow. Dr. Tarango is planning to take her to OR for I&D. Source: patient, RN/MD, other (ED report ) Exam Limitations: no limitations Date Seen 08/13/22 Attending Physician [facility] PCP Admitting Physician: Marlyn Bhatia DO Attending Physician: Marlyn Bhatia DO Referring Physician Date of Admission Aug 13, 2022 at 04:47 Home Medications & Allergies Home Medications Reviewed patient Home Medication Reconciliation performed by pharmacy medication reconciliations store facility technician and/or nursing. Patients Allergies have been reviewed. Allergies Allergies Coded Allergies amoxicillin (Unverified Allergy, Severe, sob, rash, 11/01/10) clindamycin (Verified Allergy, Unknown, 08/16/21) Penicillins (Verified Adverse Reaction, Severe, RASH, 12/14/05) cefuroxime (Verified Adverse Reaction, Severe, RASH, 12/14/05) clarithromycin (Unverified Adverse Reaction, Mild, nausea and dizziness, 02/07/14) Past Lckcklt-Hfwmsl-Okthrk Hx Patient Social History Tobacco Use?: Yes Tobacco type used: Cigarettes Smoking Status: Current Everyday Smoker Substance use?: No Substance type: Marijuana Alcohol Use?: No Alcohol Frequency: Once in a while Pt feels they are or have been: No Immunizations Up To Date Date of Influenza Vaccine: Aug 30, 2015 First/Initial COVID19 Vaccinat: X2 Second COVID19 Vaccination Stepan: 02/11 Tetanus Booster (TDap): Less Than 5 Years Date of Pneumonia Vaccine: Oct 24, 2010 Seasonal Allergies Seasonal Allergies: Yes Current Status status: No Communicates: Verbally Primary Language: Cambodian Preferred Spoken Language: Cambodian Is interpretation needed?: No Past Medical History Surgeries: Eye Surgery, Gallbladder, Orthopedic Currently Using CPAP: No Currently Using BIPAP: No High Cholesterol Headaches /Migraines Sexually Transmitted Disease: No HIV/AIDS: No UTI-Chronic Gastroesophageal Reflux, Gall Bladder Disease Degenerate Disk Disease, Chronic Back Pain Diabetes, Insulin dep Loss of Vision: Bilateral Hearing Impairment: Denies Anxiety, Suicide Attempts, Depression Blood Disorders: No Schizophrena Depression IDDM Hypothyroidism Family Medical History Family history: Allergy 03 MOTHER 09 BROTHER Family history: Arthritis 03 MOTHER Family history: Asthma 09 BROTHER 09 SISTER Family history: Cardiovascular disease 03 FATHER ("TAKES MEDICATION FOR HIS HEART") Family history: Diabetes mellitus 03 FATHER Family history: Hypertension 03 MOTHER Hypercholesterolemia 03 MOTHER Psychosocial problem 09 SISTER (DEPRESSION) Psychotic disorder 09 SISTER (ANXIETY) No Family History of: Abdominal aortic aneurysm Wakpala's disease Alcoholism Aphasia Cancer Cancer of colon Cataract Chest pain Congenital heart disease Congestive heart failure Cystic fibrosis Dementia Dysphagia Family history: Alzheimer's disease Family history: Breast disease Family history: Coronary thrombosis Family history: Gastrointestinal disease Family history: Glaucoma Family history: Osteoporosis Family history: Thyroid disorder Headache Hearing loss Heart disease Hereditary disease History of - anemia History of - disorder History of - respiratory disease History of drug abuse Human immunodeficiency virus (HIV) seropositivity Infertile Kidney disease Malignant neoplasm of lung Myocardial infarction Parkinson's disease Prostate cancer Seizure disorder Stroke Tuberculosis Visual impairment No Pertinent Family Hx SOCIAL HISTORY: -SMOKES AT LEAST 1 PPD -DRUGS--MARIJUANA -ETOH--BEER ON REGULAR BASIS PAST SURGICAL HISTORY: -CHOLECYSTECTOMY -EYE SURGERY -RIGHT HIP SURGERY CHILD MRI LUMBAR SPINE 2016 IMPRESSION: 1: There is an L5-S1 small right paracentral disc protrusion/herniation with annular tear which closely abuts the non-exited right S1 nerve root. There is a small amount of Modic type I degenerative signal changes at the L5-S1 levels posteriorly. 2: There is mild T10-T11 bilateral facet arthropathy. Review of Systems Constitutional: No chills, No fever EENTM: No blurred vision, No double vision, No throat pain Respiratory: No cough, No dyspnea on exertion Cardiovascular: No chest pain, No edema, No palpitations Gastrointestinal: No abdominal pain, No diarrhea, No dysphagia, No nausea, No vomiting Genitourinary: No dysuria, No frequency; other (right labial abscess with drainage) Musculoskeletal: back pain (chronic) Skin: lesions (right labial abscess); No pruritus, No rash Psychiatric/Neurological: Denies Anxiety, Denies Depressed; Numbness (posterior sacral region) Physical Exam Physical Exam Vital Signs Vital Signs - First Documented 08/13/22 08/13/22 03:10 06:03 Temp 36.0 Pulse 130 Resp 18 B/P (MAP) 140/90 (107) Pulse Ox 94 O2 Delivery Room Air O2 Flow Rate 2.00 Capillary Refill : Less Than 3 SecondsLess Than 3 Seconds Height, Weight, BMI Height: 5'6.00" Weight: 192lbs. 0oz. 87.887753ap; 30.33 BMI Method:Stated General Appearance: WD/WN, Moderate Distress (secondary to pain and upcoming surgery), Obese Eyes: Bilateral Eye PERRL, Bilateral Eye EOMI HEENT: PERRL/EOMI, TMs Normal, Moist Mucous Membranes Neck: Non Tender, Supple Respiratory: Lungs Clear, Normal Breath Sounds, No Accessory Muscle Use, No R espiratory Distress Cardiovascular: No Gallop, No JVD, No Murmur, Normal Peripheral Pulses, Tachycardia Gastrointestinal: Normal Bowel Sounds, Non Tender, Soft Genital/Rectal: No Normal Vaginal Exam; Tenderness, Other (right labial abscess with redness, warth, and TTP) Back: No CVA Tenderness Extremity: Non Tender, No Calf Tenderness, No Pedal Edema Neurologic/Psychiatric: Alert, Oriented x3, debit agent II-XII Norm as Tested Skin: Normal Color, Warm/Dry Lymphatic: No Adenopathy Results Results/Procedures Labs Laboratory Tests 08/13/22 03:44 08/13/22 06:19 08/13/22 07:45 Patient resulted labs reviewed. Assessment/Plan Admission Diagnosis DKA and Right labial cellulitis/abscess Admission Status: Inpatient Order (span 2 midnights) Reason for Inpatient Admission: DKA and Right labial cellulitis/abscess Assessment and Plan Assessment: DKA Leukocytosis Right labial abscess Insulin-dependent diabetes mellitus - uncontrolled Electrolyte imbalance Plan: IVF and electrolyte replacement (potassium and magnesium) IV abx (Vancomycin and Meropenem) Insulin human regular (100 mls @ 1 ml per hour/ 1unit per hour) Dr. Tarango taking to OR for I&D Pain management and supportive care MARLYN BHATIA DO 08/14/22 0519: History of Present Illness HPI/Chief Complaint Patient just returned from operating room Feels much better IV antibiotics we will continue Insulin drip we will continue Source: patient, RN/MD Exam Limitations: no limitations Time Seen by a Provider: 12:00 Past Usooazp-Bwlgte-Stwrop Hx Family Medical History Family history: Allergy 03 MOTHER 09 BROTHER Family history: Arthritis 03 MOTHER Family history: Asthma 09 BROTHER 09 SISTER Family history: Cardiovascular disease 03 FATHER ("TAKES MEDICATION FOR HIS HEART") Family history: Diabetes mellitus 03 FATHER Family history: Hypertension 03 MOTHER Hypercholesterolemia 03 MOTHER Psychosocial problem 09 SISTER (DEPRESSION) Psychotic disorder 09 SISTER (ANXIETY) No Family History of: Abdominal aortic aneurysm Wakpala's disease Alcoholism Aphasia Cancer Cancer of colon Cataract Chest pain Congenital heart disease Congestive heart failure Cystic fibrosis Dementia Dysphagia Family history: Alzheimer's disease Family history: Breast disease Family history: Coronary thrombosis Family history: Gastrointestinal disease Family history: Glaucoma Family history: Osteoporosis Family history: Thyroid disorder Headache Hearing loss Heart disease Hereditary disease History of - anemia History of - disorder History of - respiratory disease History of drug abuse Human immunodeficiency virus (HIV) seropositivity Infertile Kidney disease Malignant neoplasm of lung Myocardial infarction Parkinson's disease Prostate cancer Seizure disorder Stroke Tuberculosis Visual impairment Assessment/Plan Admission Diagnosis Admission Status: Inpatient Order (span 2 midnights) Reason for Inpatient Admission: DKA with abscess Supervisory-Addendum Brief Verification & Attestation Participated in pt care: history, MDM, physical Personally performed: exam, history, MDM, supervision of care Care discussed with: Medical Student Procedures: n/a Results interpretation: Verified all documentation Verification and Attestation of Medical Student E/M Service A medical student performed and documented this service in my presence. I reviewed and verified all information documented by the medical student and made modifications to such information, when appropriate. I personally performed the physical exam and medical decision making. Marlyn Bhatia, Aug 14, 2022,05:19 MARTHA CARRILLO Aug 13, 2022 14:20 MARLYN BHATIA DO Aug 14, 2022 05:19
[2022-08-13] MEDS ORDERED: RT-ALBUTEROL SULF 2.5 MG/3 ML PRE-MIX VIAL INH PRN (16:15)
[2022-08-13] MEDS: VANCOMYCIN 1250 MG/NS 250 ML IVPB IV SCH ×2 (16:48)
[2022-08-13] MEDS: LORazepam 0.5 MG (ATIVAN) TABLET PO PRN (19:29)
--- NOTE | 2022-08-13 22:50 | OPERATIVE REPORT ---
DATE OF SERVICE: 08/13/2022 PREOPERATIVE DIAGNOSIS: Right labial abscess. PROCEDURE: Incision and drainage of right labial abscess. SURGEON: Esau Tarango DO ANESTHESIA: General. ESTIMATED BLOOD LOSS: Minimal. COMPLICATIONS: None. INDICATIONS: The patient is a 42-year-old female with area of the right labia appears to be cellulitis, but also abscess. She understands risks and benefits of procedure and wished to proceed. Consent was signed in the chart. DESCRIPTION OF PROCEDURE: The patient was taken to the operating suite. She was placed in lithotomy position. Timeout was performed. A 15 blade scalpel was used to make a skin incision over the right labia over the area of fluctuance. Purulent bloody return was expressed. Culture was obtained. This incision was made approximately 3.5 cm in length. Some tracking down towards the rectal region, but does not seem to be any other pathology noted. There does not appear to be any necrotizing fasciitis. Copious amounts of irrigation was used to irrigate the wound. Wound was then packed with iodoform gauze and sterile bandages were applied. The patient tolerated procedure well without any complications. She was taken to recovery room in stable condition. Job ID: [id number] DocumentID: [id number] Dictated Date: 08/13/2022 12:59:59 [facility] Agent Date: 08/13/2022 22:49:49 Dictated By: ESAU TARANGO DO
[2022-08-13] MEDS: morphine IMMEDIATE RELEASE 15 MG TABLET PO PRN (23:25)
[2022-08-14] MEDS ORDERED: TROUGH ORDER-PHARMACY XX ONE (03:00)
[2022-08-14 03:17] LABS: BASOPHILS # (AUTO) 0.1 10^3/uL (0.0-0.1); BASOPHILS % (AUTO) 0 % (0-10); EOSINOPHILS # (AUTO) 0.3 10^3/uL (0.0-0.3); EOSINOPHILS % (AUTO) 2 % (0-10); HEMATOCRIT 33 % (35-52); HEMOGLOBIN 11.1 g/dL (11.5-16.0); LYMPHOCYTES % (AUTO) 14 % (12-44); MEAN CORPUSCULAR HEMOGLOBIN 31 pg (25-34); MEAN CORPUSCULAR HGB CONC 34 g/dL (32-36); MEAN CORPUSCULAR VOLUME 90 fL (80-99); MEAN PLATELET VOLUME 9.9 fL (9.0-12.2); MONOCYTES % (AUTO) 15 % (0-12); NEUTROPHILS # (AUTO) 9.3 10^3/uL (1.8-7.8); NEUTROPHILS % (AUTO) 68 % (42-75); PLATELET COUNT 198 10^3/uL (130-400); WHITE BLOOD COUNT 13.7 10^3/uL (4.3-11.0)
[2022-08-14 03:41] LABS: ALBUMIN 3.1 GM/DL (3.2-4.5); POTASSIUM 4.1 MMOL/L (3.6-5.0)
[2022-08-14 03:42] LABS: CALCIUM 8.6 MG/DL (8.5-10.1)
[2022-08-14 03:44] LABS: TOTAL PROTEIN 6.6 GM/DL (6.4-8.2)
[2022-08-14 03:45] LABS: BILIRUBIN,TOTAL 0.6 MG/DL (0.1-1.0)
[2022-08-14 03:47] LABS: CREATININE SERUM 0.95 MG/DL (0.60-1.30); PHOSPHORUS 3.2 MG/DL (2.3-4.7)
[2022-08-14 03:50] LABS: MAGNESIUM 1.6 MG/DL (1.6-2.4)
[2022-08-14] MEDS: MAGNESIUM 1 GM/100 ML IVPB 100 ML IV SCH ×3 (03:55→04:23)
[2022-08-14] MEDS: KCL 20 MEQ TAB (K-DUR) PO SCH (03:55)
[2022-08-14] MEDS: POTASSIUM CL 10MEQ/50ML IVPB 50 ML IV SCH (03:55)
[2022-08-14 03:57] LABS: VANCOMYCIN,TROUGH 13.8 UG/ML (10.0-20.0)
[2022-08-14] MEDS: VANCOMYCIN 1250 MG/NS 250 ML IVPB IV SCH ×4 (04:22→16:54)
[2022-08-14] MEDS: ENOXAPARIN 40 MG/0.4 ML (LOVENOX) SYR SC SCH (04:31)
[2022-08-14] MEDS: MEROPENEM 500 MG in NS (IVPB) 100 ML IV SCH ×4 (05:42→23:16)
--- NOTE | 2022-08-14 05:44 | Progress Note - Hospitalist ---
Subjective HPI/CC On Admission Date Seen by Provider: Aug 14, 2022 Time Seen by Provider: 11:30 Patient just returned from operating room Feels much better IV antibiotics we will continue Insulin drip we will continue Subjective/Events-last exam Patient doing much better Moving down to fourth floor Dressing changes are painful Blood sugars are improved Review of Systems General: Fatigue, Malaise Focused Exam Lactate Level 08/13/22 03:44: Lactic Acid Level 1.54 Time of Focused Exam: 04:30 Objective Exam Vital Signs Vital Signs Date Time Temp Pulse Resp B/P (MAP) Pulse Ox O2 Delivery O2 Flow Rate FiO2 08/14/22 19:45 36.9 109 20 132/74 (93) 90 Room Air 08/14/22 09:00 2.00 08/13/22 15:54 32 Capillary Refill : Less Than 3 SecondsLess Than 3 Seconds General Appearance: No Apparent Distress, WD/WN, Chronically ill Respiratory: Lungs Clear, Normal Breath Sounds Cardiovascular: Regular Rate, Rhythm Neurologic/Psychiatric: Alert, Oriented x3, No Motor/Sensory Deficits, Normal Mood/Affect Results/Procedures Lab Laboratory Tests 08/14/22 03:10 Patient resulted labs reviewed. Assessment/Plan Assessment and Plan Assess & Plan/Chief Complaint Assessment: DKA Leukocytosis Right labial abscess status post incision and drainage Insulin-dependent diabetes mellitus - uncontrolled Electrolyte imbalance Plan: Insulin IV antibiotics WILI BHATIA DO Aug 14, 2022 05:44
[2022-08-14] MEDS ORDERED: NON-FORMULARY MEDICATION 1 EA EA (Semaglutide (Ozempic) 1 MG) SC SCH (06:00)
[2022-08-14] MEDS ORDERED: PATIENT MAY USE OWN MEDS, ALL MC SCH (06:00)
[2022-08-14] MEDS ORDERED: NON-FORMULARY MEDICATION 1 EA EA (Rimegepant Sulfate (Nurtec Odt) 75 MG) PO PRN (06:00)
[2022-08-14] MEDS: ACETAMINOPHEN 325 MG TABLET PO PRN ×2 (06:23→19:37)
[2022-08-14] MEDS: inSUlin ASPART (NovoLOG) 1 UNIT/0.01 ML (CHARGE PER UNIT) SC SCH ×7 (06:29→20:42)
[2022-08-14] MEDS: MULTIVIT W/MINERALS TAB (THERAGRAN M) PO SCH (06:29)
[2022-08-14] MEDS: LEVOTHYROXINE 75 MCG (LEVOTHROID) TABLET PO SCH (06:29)
[2022-08-14] MEDS: DOCUSATE SODIUM 100 MG (COLACE) CAP PO SCH ×2 (07:52→19:37)
[2022-08-14] MEDS: FLUoxetine HCL 20 MG (PROzac) CAP PO SCH (07:52)
[2022-08-14] MEDS: DIVALPROEX EXT RELEASE 250 MG (DEPAKOTE ER) TAB PO SCH ×2 (07:52→19:36)
[2022-08-14] MEDS: SENNOSIDES 8.6 MG (SENOKOT) TAB PO SCH ×2 (07:52→19:38)
[2022-08-14] MEDS ORDERED: GUANFACINE HCL 3 MG PO SCH (09:00)
[2022-08-14] MEDS: LORazepam 0.5 MG (ATIVAN) TABLET PO PRN (09:59)
[2022-08-14] MEDS: HYDROmorphone 2 MG/ML VIAL (DILAUDID) IV PRN (10:00)
[2022-08-14] MEDS: HYPOCHLOROUS ACID/NaCl (VASHE) 250 ML IR PRN (10:00)
--- NOTE | 2022-08-14 11:37 | Progress Note ---
Subjective Date Seen by a Provider: Aug 14, 2022 Time Seen by a Provider: 11:00 Subjective/Events-last exam doing better today. much less perineal pain. no fever/chills. Focused Exam Lactate Level 08/13/22 03:44: Lactic Acid Level 1.54 Time of Focused Exam: 04:30 Objective Exam Vital Signs Date Time Temp Pulse Resp B/P (MAP) Pulse Ox O2 Delivery O2 Flow Rate FiO2 08/14/22 09:00 109 17 140/82 (101) 94 Nasal Cannula 2.00 08/14/22 08:00 96 Nasal Cannula 2.00 08/14/22 08:00 114 17 117/86 (96) 93 Nasal Cannula 2.00 08/14/22 07:47 37.0 08/14/22 07:00 114 28 117/82 (94) 95 Nasal Cannula 2.00 08/14/22 07:00 114 08/14/22 06:00 109 15 126/84 (98) 94 Nasal Cannula 2.00 08/14/22 05:00 110 18 137/78 (97) 94 Nasal Cannula 2.00 08/14/22 04:20 37.0 Nasal Cannula 2.00 08/14/22 04:00 95 Nasal Cannula 2.00 08/14/22 04:00 118 20 141/77 (98) 95 Nasal Cannula 2.00 08/14/22 03:00 112 16 114/77 (89) 96 Nasal Cannula 2.00 08/14/22 02:00 112 16 114/77 (89) 96 Nasal Cannula 2.00 08/14/22 01:00 113 08/14/22 01:00 121 16 119/71 (87) 96 Nasal Cannula 2.00 08/14/22 00:00 121 23 128/78 (95) 96 Nasal Cannula 2.00 08/13/22 23:25 36.6 08/13/22 23:25 96 Nasal Cannula 2.00 08/13/22 23:00 128 16 144/82 (102) 95 Nasal Cannula 2.00 08/13/22 22:00 114 16 121/81 (94) 96 Nasal Cannula 2.00 08/13/22 20:00 122 22 106/79 (88) 96 Nasal Cannula 2.00 08/13/22 19:55 95 Nasal Cannula 2.00 08/13/22 19:25 37.4 Nasal Cannula 2.00 08/13/22 19:00 126 14 103/86 (92) 92 Nasal Cannula 3.00 08/13/22 19:00 126 08/13/22 18:00 126 111/74 (86) 95 Nasal Cannula 3.00 08/13/22 17:00 128 26 121/73 (89) 93 Nasal Cannula 3.00 08/13/22 16:00 37.4 08/13/22 16:00 124 111/70 (84) 93 Nasal Cannula 3.00 08/13/22 16:00 90 Nasal Cannula 08/13/22 15:54 36.7 125 93 32 08/13/22 15:00 123 22 104/66 (79) 92 Nasal Cannula 3.00 08/13/22 14:00 125 21 109/71 (84) 92 Nasal Cannula 3.00 08/13/22 13:00 131 08/13/22 13:00 129 21 116/70 (85) 92 Nasal Cannula 3.00 08/13/22 12:00 90 Nasal Cannula 08/13/22 12:00 133 141/85 (103) 93 Nasal Cannula 3.00 08/13/22 11:53 37.4 08/13/22 11:45 131 29 117/75 (89) 92 Nasal Cannula 3.00 I & O 08/14/22 07:00 Intake Total 3512.5 ml Output Total 2450 ml Balance 1062.5 ml Capillary Refill : Less Than 3 SecondsLess Than 3 Seconds General Appearance: No Apparent Distress HEENT: PERRL/EOMI Neck: Full Range of Motion Respiratory: Chest Non Tender, Lungs Clear, Normal Breath Sounds Cardiovascular: Regular Rate, Rhythm Gastrointestinal: normal bowel sounds, non tender, soft Extremity: Normal Capillary Refill Neurologic/Psychiatric: Alert, Oriented x3 Skin: Other (labial wound dressed/dry) Lymphatic: No Adenopathy Results Lab Laboratory Tests 08/13/22 11:53: Glucometer 332H 08/13/22 15:16: Glucometer 249H 08/13/22 20:30: Glucometer 191H 08/14/22 03:10: White Blood Count 13.7H, Red Blood Count 3.62L, Hemoglobin 11.1L, Hematocrit 33L , Mean Corpuscular Volume 90, Mean Corpuscular Hemoglobin 31, Mean Corpuscular Hemoglobin Concent 34, Red Cell Distribution Width 12.5, Platelet Count 198, Mean Platelet Volume 9.9, Immature Granulocyte % (Auto) 1, Neutrophils (%) ( Auto) 68, Lymphocytes (%) (Auto) 14, Monocytes (%) (Auto) 15H, Eosinophils (%) (Auto) 2, Basophils (%) (Auto) 0, Neutrophils # (Auto) 9.3H, Lymphocytes # (Auto) 2.0, Monocytes # (Auto) 2.0H, Eosinophils # (Auto) 0.3, Basophils # (Auto) 0.1, Immature Granulocyte # (Auto) 0.1, Sodium Level 132L, Potassium Level 4.1, Chloride Level 102, Carbon Dioxide Level 19L, Anion Gap 11, Blood Urea Nitrogen 18, Creatinine 0.95, Estimat Glomerular Filtration Rate 77, BUN/Creatinine Ratio 19, Glucose Level 316H, Calcium Level 8.6, Corrected Calcium 9.3, Phosphorus Level 3.2, Magnesium Level 1.6, Total Bilirubin 0.6, Aspartate Amino Transf (AST/SGOT) 17, Alanine Aminotransferase (ALT/SGPT) 10, Alkaline Phosphatase 101, Total Protein 6.6, Albumin 3.1L, Vancomycin Level Trough 13.8 08/14/22 06:19: Glucometer 319H 08/14/22 07:17: Glucometer 325H 08/14/22 10:26: Glucometer 112H Microbiology 08/13/22 Gram Stain, Resulted Pending 08/13/22 Anaerobic Culture, Resulted Pending 08/13/22 Surgical Culture - Preliminary, Resulted Probable Enterococcus Species Probable E.coli 08/13/22 Fungal Culture 1, Resulted Pending 08/13/22 MRSA Screen - Final, Complete MRSA not isolated Assessment/Plan Assessment/Plan Assess & Plan/Chief Complaint s/p I&D right labial abscess. enterobacter and e. coli. cont vanco and meropenem. dressing changes bid. ok for floor. TREVIN DALE MD Aug 14, 2022 11:37
[2022-08-14] MEDS: PANTOPRAZOLE 40 MG (PROTONIX) TAB PO SCH (19:37)
[2022-08-14] MEDS: OLANZapine 5 MG ODT (ZyPREXA ZYDIS) PO SCH (19:37)
[2022-08-14] MEDS: morphine IMMEDIATE RELEASE 15 MG TABLET PO PRN (20:42)
[2022-08-14] MEDS ORDERED: PRAZOSIN HCL 3 MG PO SCH (21:00)
[2022-08-14] MEDS ORDERED: ATOMOXETINE HCL 60 MG PO SCH (21:00)
[2022-08-15] MEDS: VANCOMYCIN 1250 MG/NS 250 ML IVPB IV SCH ×4 (04:43→16:17)
[2022-08-15] MEDS: ENOXAPARIN 40 MG/0.4 ML (LOVENOX) SYR SC SCH (04:43)
[2022-08-15] MEDS: inSUlin ASPART (NovoLOG) 1 UNIT/0.01 ML (CHARGE PER UNIT) SC SCH ×8 (05:30→20:58)
--- NOTE | 2022-08-15 05:32 | Progress Note - Hospitalist ---
Subjective HPI/CC On Admission Date Seen by Provider: Aug 15, 2022 Time Seen by Provider: 11:00 Patient just returned from operating room Feels much better IV antibiotics we will continue Insulin drip we will continue Subjective/Events-last exam Patient about the same Dr. DALE added Diflucan and Flagyl due to wound appearing more red Blood sugars are very variable Focused Exam Lactate Level 08/13/22 03:44: Lactic Acid Level 1.54 Time of Focused Exam: 04:30 Objective Exam Vital Signs Vital Signs Date Time Temp Pulse Resp B/P (MAP) Pulse Ox O2 Delivery O2 Flow Rate FiO2 08/15/22 11:37 37.6 104 20 149/86 (107) 96 Nasal Cannula 2.00 08/13/22 15:54 32 Capillary Refill : Less Than 3 SecondsLess Than 3 Seconds General Appearance: Chronically ill, Other (Asleep) Respiratory: Lungs Clear Cardiovascular: Regular Rate, Rhythm Results/Procedures Lab Laboratory Tests 08/15/22 05:32 Patient resulted labs reviewed. Assessment/Plan Assessment and Plan Assess & Plan/Chief Complaint Assessment: DKA now resolved Leukocytosis Right labial abscess status post incision and drainage Insulin-dependent diabetes mellitus - uncontrolled Electrolyte imbalance Plan: Insulin adjusted IV antibiotics Appreciate WILI Blair DO Aug 15, 2022 05:32
[2022-08-15] MEDS: LEVOTHYROXINE 75 MCG (LEVOTHROID) TABLET PO SCH (05:36)
[2022-08-15] MEDS: MULTIVIT W/MINERALS TAB (THERAGRAN M) PO SCH (05:36)
[2022-08-15] MEDS: MEROPENEM 500 MG in NS (IVPB) 100 ML IV SCH ×3 (05:37→18:52)
[2022-08-15 05:51] LABS: BASOPHILS % (AUTO) 0 % (0-10); EOSINOPHILS # (AUTO) 0.4 10^3/uL (0.0-0.3); EOSINOPHILS % (AUTO) 4 % (0-10); HEMATOCRIT 28 % (35-52); HEMOGLOBIN 9.4 g/dL (11.5-16.0); LYMPHOCYTES # (AUTO) 2.6 10^3/uL (1.0-4.0); LYMPHOCYTES % (AUTO) 25 % (12-44); MEAN CORPUSCULAR HEMOGLOBIN 31 pg (25-34); MEAN CORPUSCULAR HGB CONC 34 g/dL (32-36); MEAN CORPUSCULAR VOLUME 90 fL (80-99); MEAN PLATELET VOLUME 9.7 fL (9.0-12.2); MONOCYTES # (AUTO) 1.2 10^3/uL (0.0-1.0); MONOCYTES % (AUTO) 11 % (0-12); NEUTROPHILS # (AUTO) 6.2 10^3/uL (1.8-7.8); NEUTROPHILS % (AUTO) 60 % (42-75); PLATELET COUNT 190 10^3/uL (130-400); WHITE BLOOD COUNT 10.4 10^3/uL (4.3-11.0)
[2022-08-15 06:03] LABS: ALBUMIN 2.8 GM/DL (3.2-4.5)
[2022-08-15 06:04] LABS: POTASSIUM 3.6 MMOL/L (3.6-5.0)
[2022-08-15 06:05] LABS: CALCIUM 8.5 MG/DL (8.5-10.1)
[2022-08-15 06:06] LABS: TOTAL PROTEIN 5.6 GM/DL (6.4-8.2)
[2022-08-15 06:08] LABS: BILIRUBIN,TOTAL 0.2 MG/DL (0.1-1.0)
[2022-08-15 06:10] LABS: CREATININE SERUM 0.67 MG/DL (0.60-1.30)
[2022-08-15 06:13] LABS: MAGNESIUM 1.9 MG/DL (1.6-2.4)
[2022-08-15] MEDS: FLUoxetine HCL 20 MG (PROzac) CAP PO SCH (08:48)
[2022-08-15] MEDS: SENNOSIDES 8.6 MG (SENOKOT) TAB PO SCH ×2 (08:48→19:54)
[2022-08-15] MEDS: DIVALPROEX EXT RELEASE 250 MG (DEPAKOTE ER) TAB PO SCH ×2 (08:48→19:55)
[2022-08-15] MEDS: DOCUSATE SODIUM 100 MG (COLACE) CAP PO SCH ×2 (08:48→19:55)
--- NOTE | 2022-08-15 10:55 | Progress Note ---
Subjective Date Seen by a Provider: Aug 15, 2022 Time Seen by a Provider: 10:10 Subjective/Events-last exam Patient seen with Dr. Hutton. Patient reports doing ok but still have pain of labial region. No nausea or vomiting. Tolerating diet. Focused Exam Lactate Level 08/13/22 03:44: Lactic Acid Level 1.54 Time of Focused Exam: 04:30 Objective Exam Vital Signs Date Time Temp Pulse Resp B/P (MAP) Pulse Ox O2 Delivery O2 Flow Rate FiO2 08/15/22 08:15 Room Air 08/15/22 07:33 37.6 105 20 116/70 (85) 92 Nasal Cannula 2.00 08/15/22 04:03 36.8 102 18 131/84 (100) 93 Nasal Cannula 2.00 08/14/22 23:41 36.7 103 18 124/80 (95) 94 Nasal Cannula 2.00 08/14/22 21:12 Room Air 08/14/22 19:45 36.9 109 20 132/74 (93) 90 Room Air 08/14/22 19:42 Room Air 08/14/22 15:43 37.3 108 18 163/85 (111) 90 Room Air 08/14/22 12:00 37.1 114 19 126/80 (95) 91 Room Air 08/14/22 11:56 36.9 I & O 08/15/22 07:00 Intake Total 1290 ml Output Total 0 ml Balance 1290 ml Capillary Refill : Less Than 3 SecondsLess Than 3 Seconds General Appearance: No Apparent Distress, WD/WN Neck: Normal Inspection, Supple Respiratory: No Accessory Muscle Use, No Respiratory Distress Gastrointestinal: normal bowel sounds, non tender, soft Extremity: Normal Inspection, Normal Range of Motion Neurologic/Psychiatric: Alert, Oriented x3 Skin: Other (right labial edema that is painful to palpation, incision packed wtih packing gauze with minimal drainge) Results Lab Laboratory Tests 08/14/22 15:50: Glucometer 160H 08/14/22 20:19: Glucometer 281H 08/15/22 05:27: Glucometer 74 08/15/22 05:32: White Blood Count 10.4, Red Blood Count 3.08L, Hemoglobin 9.4L, Hematocrit 28L, Mean Corpuscular Volume 90, Mean Corpuscular Hemoglobin 31, Mean Corpuscular Hemoglobin Concent 34, Red Cell Distribution Width 12.5, Platelet Count 190, Mean Platelet Volume 9.7, Immature Granulocyte % (Auto) 1, Neutrophils (%) (Auto) 60, Lymphocytes (%) (Auto) 25, Monocytes (%) (Auto) 11, Eosinophils (%) (Auto) 4, Basophils (%) (Auto) 0, Neutrophils # (Auto) 6.2, Lymphocytes # (Auto) 2.6, Monocytes # (Auto) 1.2H, Eosinophils # (Auto) 0.4H, Basophils # (Auto) 0.0, Immature Granulocyte # (Auto) 0.1, Sodium Level 134L, Potassium Level 3.6, Chloride Level 106, Carbon Dioxide Level 22, Anion Gap 6, Blood Urea Nitrogen 17, Creatinine 0.67, Estimat Glomerular Filtration Rate 113, BUN/Creatinine Ratio 25, Glucose Level 77, Calcium Level 8.5, Corrected Calcium 9.5, Magnesium Level 1.9, Total Bilirubin 0.2, Aspartate Amino Transf (AST/SGOT) 27, Alanine Aminotransferase (ALT/SGPT) 16, Alkaline Phosphatase 94, Total Protein 5.6L, Albumin 2.8L Microbiology 08/13/22 Gram Stain - Final, Resulted 08/13/22 Anaerobic Culture, Resulted Pending 08/13/22 Surgical Culture - Preliminary, Resulted Enterococcus faecalis Escherichia coli 08/13/22 Fungal Culture 1, Resulted Pending 08/13/22 MRSA Screen - Final, Complete MRSA not isolated 08/13/22 Blood Culture - Preliminary, Resulted No growth 08/13/22 Urine Culture - Final, Complete Gram Pos Mixed Bacterial Samantha Assessment/Plan Assessment/Plan Assess & Plan/Chief Complaint s/p I&D right labial abscess. VSS WBC 10.4 enterobacter and e. coli. cont vanco and meropenem. dressing changes bid. Continue pain and abx meds MANUEL DALAL SALES PROCESS MANAGER Aug 15, 2022 10:55
[2022-08-15] MEDS: LORazepam 0.5 MG (ATIVAN) TABLET PO PRN (14:08)
[2022-08-15] MEDS: HYDROmorphone 2 MG/ML VIAL (DILAUDID) IV PRN (14:08)
[2022-08-15] MEDS ORDERED: FLUCONAZOLE 200 MG/100 ML 100 ML IV ONE (16:00)
[2022-08-15] MEDS: LACTOBACILLUS ACIDOPHILUS (PROBIOTIC) CAPSULE PO SCH (16:25)
[2022-08-15] MEDS: morphine IMMEDIATE RELEASE 15 MG TABLET PO PRN (17:05)
[2022-08-15] MEDS: metroNIDAZOLE 500MG/100ML IVPB 100 ML IV SCH (19:54)
[2022-08-15] MEDS: PANTOPRAZOLE 40 MG (PROTONIX) TAB PO SCH (19:54)
[2022-08-15] MEDS: OLANZapine 5 MG ODT (ZyPREXA ZYDIS) PO SCH (19:55)
[2022-08-16] MEDS: MEROPENEM 500 MG in NS (IVPB) 100 ML IV SCH ×4 (00:05→17:10)
[2022-08-16] MEDS: ENOXAPARIN 40 MG/0.4 ML (LOVENOX) SYR SC SCH (04:34)
[2022-08-16] MEDS: VANCOMYCIN 1250 MG/NS 250 ML IVPB IV SCH ×4 (04:34→17:09)
[2022-08-16] MEDS: inSUlin ASPART (NovoLOG) 1 UNIT/0.01 ML (CHARGE PER UNIT) SC SCH ×7 (05:39→21:45)
[2022-08-16 05:41] LABS: BASOPHILS % (AUTO) 0 % (0-10); EOSINOPHILS # (AUTO) 0.4 10^3/uL (0.0-0.3); EOSINOPHILS % (AUTO) 5 % (0-10); HEMATOCRIT 28 % (35-52); HEMOGLOBIN 9.1 g/dL (11.5-16.0); LYMPHOCYTES # (AUTO) 1.4 10^3/uL (1.0-4.0); LYMPHOCYTES % (AUTO) 19 % (12-44); MEAN CORPUSCULAR HEMOGLOBIN 30 pg (25-34); MEAN CORPUSCULAR HGB CONC 33 g/dL (32-36); MEAN CORPUSCULAR VOLUME 92 fL (80-99); MEAN PLATELET VOLUME 9.7 fL (9.0-12.2); MONOCYTES # (AUTO) 0.9 10^3/uL (0.0-1.0); MONOCYTES % (AUTO) 11 % (0-12); NEUTROPHILS # (AUTO) 4.9 10^3/uL (1.8-7.8); NEUTROPHILS % (AUTO) 64 % (42-75); PLATELET COUNT 216 10^3/uL (130-400); WHITE BLOOD COUNT 7.6 10^3/uL (4.3-11.0)
[2022-08-16] MEDS: LEVOTHYROXINE 75 MCG (LEVOTHROID) TABLET PO SCH (05:43)
[2022-08-16] MEDS: MULTIVIT W/MINERALS TAB (THERAGRAN M) PO SCH (05:43)
[2022-08-16 05:54] LABS: ALBUMIN 2.6 GM/DL (3.2-4.5); POTASSIUM 3.8 MMOL/L (3.6-5.0)
[2022-08-16 05:55] LABS: CALCIUM 8.2 MG/DL (8.5-10.1)
[2022-08-16 05:56] LABS: TOTAL PROTEIN 5.5 GM/DL (6.4-8.2)
[2022-08-16 05:58] LABS: BILIRUBIN,TOTAL 0.1 MG/DL (0.1-1.0)
[2022-08-16 06:00] LABS: CREATININE SERUM 0.82 MG/DL (0.60-1.30)
[2022-08-16 06:03] LABS: MAGNESIUM 1.8 MG/DL (1.6-2.4)
[2022-08-16 08:12] VITALS: BP 133/75
[2022-08-16] MEDS: SENNOSIDES 8.6 MG (SENOKOT) TAB PO SCH ×2 (09:00→21:27)
[2022-08-16] MEDS: LACTOBACILLUS ACIDOPHILUS (PROBIOTIC) CAPSULE PO SCH ×3 (09:00→17:09)
[2022-08-16] MEDS: morphine IMMEDIATE RELEASE 15 MG TABLET PO PRN ×2 (09:00→18:29)
[2022-08-16] MEDS: DIVALPROEX EXT RELEASE 250 MG (DEPAKOTE ER) TAB PO SCH ×2 (09:00→21:27)
[2022-08-16] MEDS: metroNIDAZOLE 500MG/100ML IVPB 100 ML IV SCH ×2 (09:01→21:30)
[2022-08-16] MEDS: DOCUSATE SODIUM 100 MG (COLACE) CAP PO SCH ×2 (09:01→21:30)
[2022-08-16] MEDS: FLUoxetine HCL 20 MG (PROzac) CAP PO SCH (09:01)
[2022-08-16] MEDS: FLUCONAZOLE 100 MG/50 ML 50 ML IV SCH (09:01)
--- NOTE | 2022-08-16 10:19 | Diagnostic Imaging Report ---
PROCEDURE: US PELVIC (NON OB) TECHNIQUE: Multiple real-time grayscale images were obtained over the pelvis in various projections transabdominally. INDICATION: Right labial abscess. Sonographic interrogation of the right labia was performed. There is some heterogeneity in the soft tissues but no discrete fluid collection or abscess is identified. IMPRESSION: No abscess is identified. Dictated by: Dictated on workstation # [id number]
[2022-08-16 11:17] VITALS: BP 127/69
--- NOTE | 2022-08-16 12:27 | Wound Care Assessment ---
Wound Care Assessment Date Seen by Provider: Aug 16, 2022 Time Seen by Provider: 12:22 Chief Complaint Labial abscess HPI This pleasant 42 year old patient has a h/o recurrent Bartholin's cyst/abscess in the setting of poorly controlled DM2. She was admitted with DKA and R. labial abscess over the weekend. Dr. Tarango did take her for I&D on 08/15. She has been on broad spectrum antibiotics with vanc and meropenema. Flagyl and diflucan added today due to failure for improvement of associated cellulitis. Initial CT without large abscess or evidence of necrotizing fasciitis. Follow up sono similarly reassuring. WBC improving as is FSBS (now off insulin drip). Sharona a dmits to poor diabetic control and lack of compliance in medical care. She is also a smoker (1/2-1ppd). We discussed these risk factors for recurrent infection and for necrotizing infection. She verbalized understanding. Glycemic control will be important in speeding her recovery (I do think this is in large part the cause of delayed progress with healing). She does have noted PEM as well (glucerna ordered). Considerable moisture in inguinal region (I will add miconazole powder to regimen as well). Plans for HH on discharge. I do think follow up wound care would be beneficial as well due to her numerous risk factors. Past Medical History: Admits Diabetes Type II Smoking Status: Current Everyday Smoker Recreational Drug Use: Yes (Marijuana) Alcohol Use: Regular Use Review of Systems General: Fatigue, Other (Obesity) Exam Vital Signs Date Time Temp Pulse Resp B/P (MAP) Pulse Ox O2 Delivery O2 Flow Rate FiO2 08/16/22 11:17 36.9 90 18 127/69 (88) 90 Room Air 08/16/22 03:16 21 08/15/22 11:37 2.00 Capillary Refill : Less Than 3 SecondsLess Than 3 Seconds General Appearance: no apparent distress, obese HEENT: other (hearing wnl) Neck: full range of motion Cardiovascular: no edema Respiratory: no respiratory distress, no accessory muscle use Extremities: normal range of motion, no pedal edema Neurologic/Psychiatric: alert, normal mood/affect, oriented x 3, other (patient sleepy but able to participate in exam process) Skin: other Skin Problem Location: other (mons pubis/R. labia) Skin Character: abscess, drainage (purulent), erythema, swelling (induration of R. labia) Wound assessment: 3.0x0.2x2.6cm. The epithelialization is none. There is no tunneling or undermining. Drainage is large and purulent, granulation is none. Necrotic is large and slough. Margins flat. There is significant erythema and induration in periwound extending from R. labia to mons pubis. No crepitus noted . Results Laboratory Tests 08/15/22 16:15: Glucometer 130H 08/15/22 20:18: Glucometer 199H 08/16/22 05:36: White Blood Count 7.6, Red Blood Count 3.00L, Hemoglobin 9.1L, Hematocrit 28L, Mean Corpuscular Volume 92, Mean Corpuscular Hemoglobin 30, Mean Corpuscular Hemoglobin Concent 33, Red Cell Distribution Width 12.7, Platelet Count 216, Mean Platelet Volume 9.7, Immature Granulocyte % (Auto) 1, Neutrophils (%) (Auto) 64, Lymphocytes (%) (Auto) 19, Monocytes (%) (Auto) 11, Eosinophils (%) (Auto) 5, Basophils (%) (Auto) 0, Neutrophils # (Auto) 4.9, Lymphocytes # (Auto) 1.4, Monocytes # (Auto) 0.9, Eosinophils # (Auto) 0.4H, Basophils # (Auto) 0.0, Immature Granulocyte # (Auto) 0.1, Sodium Level 139, Potassium Level 3.8, Chloride Level 107, Carbon Dioxide Level 23, Anion Gap 9, Blood Urea Nitrogen 15, Creatinine 0.82, Estimat Glomerular Filtration Rate 92, BUN/Creatinine Ratio 18, Glucose Level 163H, Calcium Level 8.2L, Corrected Calcium 9.3, Magnesium Level 1.8, Total Bilirubin 0.1, Aspartate Amino Transf (AST/SGOT) 49H, Alanine Aminotransferase (ALT/SGPT) 42, Alkaline Phosphatase 113, Total Protein 5.5L, Albumin 2.6L 08/16/22 05:38: Glucometer 156H 08/16/22 11:14: Glucometer 167H Microbiology 08/13/22 Gram Stain - Final, Resulted 08/13/22 Anaerobic Culture, Resulted Pending 08/13/22 Surgical Culture - Final, Resulted Enterococcus faecalis Escherichia coli 08/13/22 Fungal Culture 1, Resulted Pending 08/13/22 MRSA Screen - Final, Complete MRSA not isolated 08/13/22 Blood Culture - Preliminary, Resulted No growth 08/13/22 Urine Culture - Final, Complete Gram Pos Mixed Bacterial Samantha Assessment/Plan/Dx Assessment: 1. R. Labial abscess 2. Cellulitis of perineum/mons pubis 3. DM2 with DKA 4. Tobaccoism 5. Obesity 6. PEM 7. Anemia 8. h/o medical noncompliance Plan: 1. Agree with antibiotics as ordered. Will change to vashe packing bid for additional assistance with infection control. See orders for details. Defer furt her surgical intervention to their capable hands 2. Antibiotics per primary and surgery. Will add topical miconazole powder to i nguinal region as well. 3. Agree with primary team in need for tight glycemic control. Conversation with patient today about necessity for compliance as outpatient in current wound healing and prevention of further similar infections 4. Smoking cessation strongly advised. Patient verbalizes understanding. 5. Weight loss advisable. Defer to primary physician 6. Glucerna tid 7. Defer to primary team 8. Continued reinforcement will likely be necessary. HOWARD JOINER MD Aug 16, 2022 12:27
--- NOTE | 2022-08-16 13:40 | Progress Note - Surgery ---
TINA CABELLO 08/16/22 1340: Subjective Date Seen by a Provider: Aug 16, 2022 Time Seen by a Provider: 13:33 Subjective/Events-last exam 42 F on day 3 for admission for DKA and Rt Labial abscess. Pt underwent I&D on 08/13/22 with wound Cx positive for e.coli and enterococcus species. Pt reports perennial pain rated 7/10 and is worse with movement or palpation. Edema has increased since procedure spanning from superior vulva to anus. Pt denies any chest pain, SOB, N/V, or lightheadedness. Pt able to tolerate voiding and BM with pain upon wiping. Pelvic US showed no definitive signs of abscess, but high clinical suspicion remains. Review of Systems General: No Chills, No Night Sweats HEENT: No Head Aches, No Visual Changes Pulmonary: No Dyspnea, No Cough Cardiovascular: No: Chest Pain, Palpitations Gastrointestinal: No: Nausea, Vomiting Genitourinary: No Dysuria, No Frequency Musculoskeletal: No: arm pain, leg pain Neurological: No: Weakness, Numbness, Change in speech Focused Exam Time of Focused Exam: 04:30 Objective Exam Vital Signs Date Time Temp Pulse Resp B/P (MAP) Pulse Ox O2 Delivery O2 Flow Rate FiO2 08/16/22 11:17 36.9 90 18 127/69 (88) 90 Room Air 08/16/22 08:12 37.1 100 18 133/75 (94) 92 Room Air 08/16/22 07:40 37.1 100 18 133/75 (94) 92 Room Air 08/16/22 07:38 Room Air 08/16/22 04:00 36.7 103 16 157/82 (107) 91 Room Air 08/16/22 03:16 103 91 21 08/16/22 00:00 37.0 103 16 144/87 (106) 91 Room Air 08/15/22 20:06 Room Air 08/15/22 20:00 37.1 100 18 135/85 (102) 91 Room Air 08/15/22 16:00 36.9 62 16 118/80 (93) 95 Room Air I & O 08/16/22 07:00 Intake Total 2710 ml Output Total 1300 ml Balance 1410 ml Capillary Refill : Less Than 3 SecondsLess Than 3 Seconds General Appearance: No Apparent Distress, WD/WN, Chronically ill, Other (Asleep) HEENT: Moist Mucous Membranes; No Photophobia Neck: Normal Inspection, Supple Respiratory: Chest Non Tender, Normal Breath Sounds, No Accessory Muscle Use, No Respiratory Distress Cardiovascular: Regular Rate, Rhythm, No Murmur, Normal Peripheral Pulses, Tachycardia Peripheral Pulses: 3+ Dorsalis Pedis (R), 3+ Left Dors-Pedis (L), 3+ Radial Pulses (R), 3+ Radial Pulses (L) Gastrointestinal: non tender, soft Extremity: Normal Inspection, Normal Range of Motion Neurologic/Psychiatric: Alert, Oriented x3 Skin: No Diaphoresis; Other (right labial edema that is painful to palpation, incision packed wtih packing gauze with minimal drainge) Lymphatic: No Adenopathy Results Lab Laboratory Tests 08/15/22 16:15: Glucometer 130H 08/15/22 20:18: Glucometer 199H 08/16/22 05:36: White Blood Count 7.6, Red Blood Count 3.00L, Hemoglobin 9.1L, Hematocrit 28L, Mean Corpuscular Volume 92, Mean Corpuscular Hemoglobin 30, Mean Corpuscular Hemoglobin Concent 33, Red Cell Distribution Width 12.7, Platelet Count 216, Mean Platelet Volume 9.7, Immature Granulocyte % (Auto) 1, Neutrophils (%) (Auto) 64, Lymphocytes (%) (Auto) 19, Monocytes (%) (Auto) 11, Eosinophils (%) (Auto) 5, Basophils (%) (Auto) 0, Neutrophils # (Auto) 4.9, Lymphocytes # (Auto) 1.4, Monocytes # (Auto) 0.9, Eosinophils # (Auto) 0.4H, Basophils # (Auto) 0.0, Immature Granulocyte # (Auto) 0.1, Sodium Level 139, Potassium Level 3.8, Chloride Level 107, Carbon Dioxide Level 23, Anion Gap 9, Blood Urea Nitrogen 15, Creatinine 0.82, Estimat Glomerular Filtration Rate 92, BUN/Creatinine Ratio 18, Glucose Level 163H, Calcium Level 8.2L, Corrected Calcium 9.3, Magnesium Level 1.8, Total Bilirubin 0.1, Aspartate Amino Transf (AST/SGOT) 49H, Alanine Aminotransferase (ALT/SGPT) 42, Alkaline Phosphatase 113, Total Protein 5.5L, Albumin 2.6L 08/16/22 05:38: Glucometer 156H 08/16/22 11:14: Glucometer 167H Microbiology 08/13/22 Gram Stain - Final, Resulted 08/13/22 Anaerobic Culture, Resulted Pending 08/13/22 Surgical Culture - Final, Resulted Enterococcus faecalis Escherichia coli 08/13/22 Fungal Culture 1, Resulted Pending 08/13/22 MRSA Screen - Final, Complete MRSA not isolated 08/13/22 Blood Culture - Preliminary, Resulted No growth 08/13/22 Urine Culture - Final, Complete Gram Pos Mixed Bacterial Samantha Assessment/Plan Assessment/Plan Assessment/Plan s/p I&D right labial abscess. continue dressing changes bid. Continue pain and abx therapy NPO at midnight start warm compress over rt labia f/u tomorrow morning for possible repeat I&D ESAU TARANGO DO 08/16/22 1935: Subjective Subjective/Events-last exam Still with right labial pain. Swelling and redness still present. Some drainage. Denies n/v fever sweats chills shortness of breath or chest pain. 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 continue dressing changes bid. Continue pain and abx therapy NPO at midnight start warm compress over rt labia f/u tomorrow morning for possible repeat I&D Supervisory-Addendum Brief Verification & Attestation Participated in pt care: history, MDM, physical Personally performed: exam, history, MDM, supervision of care Care discussed with: Medical Student Procedures: n/a Results interpretation: Verified all documentation Verification and Attestation of Medical Student E/M Service A medical student performed and documented this service in my presence. I reviewed and verified all information documented by the medical student and made modifications to such information, when appropriate. I personally performed the physical exam and medical decision making. Esau Tarango, Aug 16, 2022,19:35 TINA CABELLO Aug 16, 2022 13:40 ESAU TARANGO DO Aug 16, 2022 19:35
--- NOTE | 2022-08-16 15:02 | Progress Note ---
Subjective Subjective/Events-last exam No concerns per patient. States that the pain has improved but she is still having drainage and is having pain if she is up and walking. Tolerating PO diet. Review of Systems Pulmonary: No Dyspnea Cardiovascular: No: Chest Pain, Palpitations Gastrointestinal: No: Nausea, Vomiting, Abdominal Pain Genitourinary: Dysuria Neurological: No: Weakness, Incoordination, Confusion Focused Exam Time of Focused Exam: 04:30 Objective Exam Last Set of Vital Signs Vital Signs Date Time Temp Pulse Resp B/P (MAP) Pulse Ox O2 Delivery O2 Flow Rate FiO2 08/16/22 11:17 36.9 90 18 127/69 (88) 90 Room Air 08/16/22 03:16 21 08/15/22 11:37 2.00 Capillary Refill : Less Than 3 SecondsLess Than 3 Seconds I&O Intake and Output 08/16/22 00:00 Intake Total 2710 ml Output Total 1300 ml Balance 1410 ml Intake Oral 2510 ml IV Total 200 ml Output Urine Total 1300 ml # Voids 5 General: Alert, Oriented X3, Cooperative, No Acute Distress Lungs: Clear to Auscultation, Normal Air Movement Heart: Regular Rate, No Murmurs Abdomen: Normal Bowel Sounds, Soft, No Tenderness, No Masses Extremities: No Edema, No Tenderness/Swelling Skin: Other (Right labial swelling with purulent drainage) Neuro: Normal Speech, Cranial Nerves 3-12 NL Psych/Mental Status: Mental Status NL, Mood NL Results/Procedures Lab Laboratory Tests 08/15/22 16:15: Glucometer 130H 08/15/22 20:18: Glucometer 199H 08/16/22 05:36: White Blood Count 7.6, Red Blood Count 3.00L, Hemoglobin 9.1L, Hematocrit 28L, Mean Corpuscular Volume 92, Mean Corpuscular Hemoglobin 30, Mean Corpuscular Hemoglobin Concent 33, Red Cell Distribution Width 12.7, Platelet Count 216, Mean Platelet Volume 9.7, Immature Granulocyte % (Auto) 1, Neutrophils (%) (Auto) 64, Lymphocytes (%) (Auto) 19, Monocytes (%) (Auto) 11, Eosinophils (%) (Auto) 5, Basophils (%) (Auto) 0, Neutrophils # (Auto) 4.9, Lymphocytes # (Auto) 1.4, Monocytes # (Auto) 0.9, Eosinophils # (Auto) 0.4H, Basophils # (Auto) 0.0, Immature Granulocyte # (Auto) 0.1, Sodium Level 139, Potassium Level 3.8, Chloride Level 107, Carbon Dioxide Level 23, Anion Gap 9, Blood Urea Nitrogen 15, Creatinine 0.82, Estimat Glomerular Filtration Rate 92, BUN/Creatinine Ratio 18, Glucose Level 163H, Calcium Level 8.2L, Corrected Calcium 9.3, Magnesium Level 1.8, Total Bilirubin 0.1, Aspartate Amino Transf (AST/SGOT) 49H, Alanine Aminotransferase (ALT/SGPT) 42, Alkaline Phosphatase 113, Total Protein 5.5L, Albumin 2.6L 08/16/22 05:38: Glucometer 156H 08/16/22 11:14: Glucometer 167H Microbiology 08/13/22 Gram Stain - Final, Resulted 08/13/22 Anaerobic Culture, Resulted Pending 08/13/22 Surgical Culture - Final, Resulted Enterococcus faecalis Escherichia coli 08/13/22 Fungal Culture 1, Resulted Pending 08/13/22 MRSA Screen - Final, Complete MRSA not isolated 08/13/22 Blood Culture - Preliminary, Resulted No growth 08/13/22 Urine Culture - Final, Complete Gram Pos Mixed Bacterial Samantha Assessment/Plan Assessment/Plan (1) DKA (diabetic ketoacidosis) Status: Resolved Assessment & Plan: 08/16: Resolved Qualifiers: Qualified Codes: E11.10 - Type 2 diabetes mellitus with ketoacidosis without coma (2) Abscess of right genital labia Status: Acute Assessment & Plan: 08/16: Swelling and redness not much improved, continue IV antibiotics, wound care consulted, will need HH with wound care at D/c (3) Diabetes mellitus, insulin dependent (IDDM), uncontrolled Status: Acute Assessment & Plan: 08/16: Uncontrolled, A1c 12.8, discussed the need to get blood sugars more controlled with goal A1c <7.0 for better wound healing SAYDA CHAVEZ MD Aug 16, 2022 15:02
[2022-08-16 15:30] VITALS: BP 145/79
[2022-08-16 20:26] VITALS: BP 132/86
[2022-08-16] MEDS: LORazepam 0.5 MG (ATIVAN) TABLET PO PRN (21:25)
[2022-08-16] MEDS: HYDROmorphone 2 MG/ML VIAL (DILAUDID) IV PRN (21:26)
[2022-08-16] MEDS: PANTOPRAZOLE 40 MG (PROTONIX) TAB PO SCH (21:27)
[2022-08-16] MEDS: OLANZapine 5 MG ODT (ZyPREXA ZYDIS) PO SCH (21:28)
[2022-08-16] MEDS: MICONAZOLE 2% POWDER (DESENEX AF) 90 GM TOP SCH (21:29)
[2022-08-16] MEDS: HYPOCHLOROUS ACID/NaCl (VASHE) 250 ML IR PRN (21:33)
[2022-08-17 01:00] VITALS: BP 134/74
[2022-08-17] MEDS: MEROPENEM 500 MG in NS (IVPB) 100 ML IV SCH ×5 (01:01→23:43)
[2022-08-17] MEDS: morphine IMMEDIATE RELEASE 15 MG TABLET PO PRN ×3 (01:02→17:06)
[2022-08-17] MEDS: LORazepam 0.5 MG (ATIVAN) TABLET PO PRN ×3 (03:20→17:06)
[2022-08-17 04:27] VITALS: BP 138/67
[2022-08-17] MEDS: VANCOMYCIN 1250 MG/NS 250 ML IVPB IV SCH ×4 (04:31→15:40)
[2022-08-17] MEDS: ENOXAPARIN 40 MG/0.4 ML (LOVENOX) SYR SC SCH (04:32)
[2022-08-17 05:53] LABS: BASOPHILS % (AUTO) 1 % (0-10); EOSINOPHILS # (AUTO) 0.4 10^3/uL (0.0-0.3); EOSINOPHILS % (AUTO) 5 % (0-10); HEMATOCRIT 28 % (35-52); LYMPHOCYTES # (AUTO) 1.9 10^3/uL (1.0-4.0); LYMPHOCYTES % (AUTO) 25 % (12-44); MEAN CORPUSCULAR HEMOGLOBIN 30 pg (25-34); MEAN CORPUSCULAR HGB CONC 33 g/dL (32-36); MEAN CORPUSCULAR VOLUME 92 fL (80-99); MEAN PLATELET VOLUME 9.7 fL (9.0-12.2); MONOCYTES % (AUTO) 14 % (0-12); NEUTROPHILS # (AUTO) 4.1 10^3/uL (1.8-7.8); NEUTROPHILS % (AUTO) 55 % (42-75); PLATELET COUNT 245 10^3/uL (130-400); WHITE BLOOD COUNT 7.4 10^3/uL (4.3-11.0)
[2022-08-17 06:19] LABS: ALBUMIN 2.7 GM/DL (3.2-4.5); BILIRUBIN,TOTAL 0.1 MG/DL (0.1-1.0); CALCIUM 8.5 MG/DL (8.5-10.1); CREATININE SERUM 0.65 MG/DL (0.60-1.30); MAGNESIUM 1.7 MG/DL (1.6-2.4); POTASSIUM 3.5 MMOL/L (3.6-5.0); TOTAL PROTEIN 5.8 GM/DL (6.4-8.2)
[2022-08-17] MEDS: inSUlin ASPART (NovoLOG) 1 UNIT/0.01 ML (CHARGE PER UNIT) SC SCH ×7 (06:20→20:39)
[2022-08-17] MEDS: LEVOTHYROXINE 75 MCG (LEVOTHROID) TABLET PO SCH (06:21)
[2022-08-17] MEDS: MULTIVIT W/MINERALS TAB (THERAGRAN M) PO SCH (06:21)
[2022-08-17 07:11] VITALS: BP 148/85
[2022-08-17] MEDS: DIVALPROEX EXT RELEASE 250 MG (DEPAKOTE ER) TAB PO SCH ×2 (08:22→20:43)
[2022-08-17] MEDS: FLUCONAZOLE 100 MG/50 ML 50 ML IV SCH (08:23)
[2022-08-17] MEDS: SENNOSIDES 8.6 MG (SENOKOT) TAB PO SCH ×2 (08:23→20:43)
[2022-08-17] MEDS: LACTOBACILLUS ACIDOPHILUS (PROBIOTIC) CAPSULE PO SCH ×3 (08:23→16:51)
[2022-08-17] MEDS: FLUoxetine HCL 20 MG (PROzac) CAP PO SCH (08:23)
[2022-08-17] MEDS: DOCUSATE SODIUM 100 MG (COLACE) CAP PO SCH ×2 (08:23→20:43)
[2022-08-17] MEDS: metroNIDAZOLE 500MG/100ML IVPB 100 ML IV SCH ×2 (08:24→20:44)
[2022-08-17] MEDS ORDERED: KETOROLAC 30 MG/ML VIAL ONE (08:40)
[2022-08-17] MEDS: MICONAZOLE 2% POWDER (DESENEX AF) 90 GM TOP SCH ×2 (09:35→20:45)
--- NOTE | 2022-08-17 10:16 | Physician Query Clarification ---
PQ-Uncertain Diagnosis Admission/Discharge Admission Date: Aug 13, 2022 at 04:47 Discharge Date: Dr. Yates, The medical record reflects the following clinical scenario: History/Risk Factors: rt labia cyst/cellulitis Clinical Findings: T 36.0, P 130, R 18, WBC 13.7, Lactic 1.54 Treatment: IV Merepenem, IV Vancomycin Question: Is sepsis a clinically valid diagnosis? Sepsis was documented in the ER record with no further documentation in the medical record. Please document a response in Progress Note or Discharge Summary. 1. Yes, clinically valid, condition resolved. 2. No, condition ruled out. 3. Other, with explanation of clinical findings. 4. Undetermined, no explanation for clinical findings. PHYSICIAN RESPONSE Diagnosis clinically valid: Yes, Conditon resolved In responding to this query, please exercise your independent professional judgment. The purpose of this communication is to more accurately reflect the complexity of your patients condition. The fact that a question is asked does not imply that any particular answer is desired or expected. Thank you for your timely response to this clarification. Requestors name: Leny THIS PHYSICIAN QUERY FORM IS A PERMANENT PART OF THE MEDICAL RECORD LENY STUART Aug 17, 2022 10:16 WILI YATES DO Aug 26, 2022 11:52
[2022-08-17 11:56] VITALS: BP 129/77
--- NOTE | 2022-08-17 12:38 | Progress Note - Surgery ---
TINA CABELLO 08/17/22 1237: Subjective Date Seen by a Provider: Aug 17, 2022 Time Seen by a Provider: 12:33 Subjective/Events-last exam 42F on day 4 of admission for DKA and Rt labial abscess. Pt resting in bed with labial pain rated 7/10 that is sharp and worse with movement or palpation. Pt still claims no issues with BM or voids except for wiping the area post-void. Denies any chest pain, SOB, lightheadedness, fever or chills. Family and pt express concerns about communication and care trends that were discussed in person per Dr. Tarango Review of Systems General: No Chills, No Night Sweats HEENT: No Head Aches, No Visual Changes Pulmonary: No Dyspnea, No Cough Cardiovascular: No: Chest Pain, Lt Headedness Gastrointestinal: No: Nausea, Vomiting Genitourinary: No Dysuria, No Frequency Musculoskeletal: No: arm pain, leg pain Neurological: No: Weakness, Numbness Focused Exam Time of Focused Exam: 04:30 Objective Exam Vital Signs Date Time Temp Pulse Resp B/P (MAP) Pulse Ox O2 Delivery O2 Flow Rate FiO2 08/17/22 11:56 36.1 84 18 129/77 (94) 93 Room Air 08/17/22 08:23 37.1 08/17/22 08:14 95 Room Air 0.00 08/17/22 07:11 37.1 90 18 148/85 (106) 95 Room Air 08/17/22 04:27 36.7 92 14 138/67 (90) 91 Room Air 08/17/22 01:00 37.0 91 18 134/74 (94) 92 Room Air 08/16/22 20:26 37.7 95 18 132/86 (101) 92 Room Air 2.00 2.00 08/16/22 20:00 Room Air 08/16/22 15:30 37.4 90 18 145/79 (101) 94 Room Air I & O 08/17/22 07:00 Intake Total 1140 ml Output Total 575 ml Balance 565 ml Capillary Refill : Less Than 3 SecondsLess Than 3 Seconds General Appearance: No Apparent Distress, Obese HEENT: Normal ENT Inspection, Moist Mucous Membranes Neck: Normal Inspection, Supple Respiratory: Chest Non Tender, No Accessory Muscle Use, No Respiratory Distress Cardiovascular: Regular Rate, Rhythm, No JVD Peripheral Pulses: 3+ Dorsalis Pedis (R), 3+ Left Dors-Pedis (L), 3+ Radial Pulses (R), 3+ Radial Pulses (L) Gastrointestinal: non tender, soft Extremity: Normal Inspection, Normal Range of Motion Neurologic/Psychiatric: Alert, Oriented x3 Skin: Normal Color, Warm/Dry, Other (right labial edema that is painful to palpation, incision covered wtih packing gauze with no apparent drainge still area of induration/erythema of right labia that has mildly decreased compared to yesterday. heating pad placed on vulva. hospital unit clerk present during exam) Lymphatic: No Adenopathy Results Lab Laboratory Tests 08/16/22 15:25: Glucometer 175H 08/16/22 20:58: Glucometer 145H 08/17/22 05:00: White Blood Count 7.4, Red Blood Count 2.98L, Hemoglobin 9.0L, Hematocrit 28L, Mean Corpuscular Volume 92, Mean Corpuscular Hemoglobin 30, Mean Corpuscular Hemoglobin Concent 33, Red Cell Distribution Width 12.9, Platelet Count 245, Mean Platelet Volume 9.7, Immature Granulocyte % (Auto) 1, Neutrophils (%) (Auto) 55, Lymphocytes (%) (Auto) 25, Monocytes (%) (Auto) 14H, Eosinophils (%) (Auto) 5, Basophils (%) (Auto) 1, Neutrophils # (Auto) 4.1, Lymphocytes # (Auto) 1.9, Monocytes # (Auto) 1.0, Eosinophils # (Auto) 0.4H, Basophils # (Auto) 0.0, Immature Granulocyte # (Auto) 0.1, Sodium Level 141, Potassium Level 3.5L, Chloride Level 109H, Carbon Dioxide Level 23, Anion Gap 9, Blood Urea Nitrogen 15, Creatinine 0.65, Estimat Glomerular Filtration Rate 113, BUN/Creatinine Ratio 23, Glucose Level 174H, Calcium Level 8.5, Corrected Calcium 9.5, Magnesium Level 1.7, Total Bilirubin 0.1, Aspartate Amino Transf (AST/SGOT) 33, Alanine Aminotransferase (ALT/SGPT) 44, Alkaline Phosphatase 129, Total Protein 5.8L, Albumin 2.7L 08/17/22 11:04: Glucometer 68L Microbiology 08/13/22 Gram Stain - Final, Resulted 08/13/22 Anaerobic Culture - Preliminary, Resulted Mixed anaerobic angie 08/13/22 Surgical Culture - Final, Resulted Enterococcus faecalis Escherichia coli 08/13/22 Fungal Culture 1 - Preliminary, Resulted 08/13/22 MRSA Screen - Final, Complete MRSA not isolated 08/13/22 Blood Culture - Preliminary, Resulted No growth 08/13/22 Urine Culture - Final, Complete Gram Pos Mixed Bacterial Angie Assessment/Plan Assessment/Plan Assessment/Plan s/p I&D right labial abscess. continue dressing changes bid. Continue pain and abx therapy start diabetic diet for this evening and move to NPO at midnight continue warm compress over rt labia f/u tomorrow morning for possible repeat I&D ESAU TARANGO DO 08/17/22 1805: Subjective Subjective/Events-last exam Patient still with right labial pain. Approximately 7 out of 10. May be a little bit better. Not have any significant drainage she states. Not having any nausea vomiting fever sweats chills shortness of breath or chest pain. Been doing warm compresses slightly. Still firm to the area. Objective Exam General Appearance: No Apparent Distress, Obese HEENT: PERRL/EOMI, Moist Mucous Membranes Neck: Normal Inspection, Supple Respiratory: Chest Non Tender, No Accessory Muscle Use, No Respiratory Distress Cardiovascular: Regular Rate, Rhythm, No JVD Gastrointestinal: non tender, soft Extremity: Normal Inspection, Normal Range of Motion Neurologic/Psychiatric: Alert, Oriented x3 Skin: Warm/Dry, Other (right labial edema that is painful to palpation, incision with no apparent drainge, area of induration/erythema of right labia that has minimally decreased compared to yesterday no fluctuance. hospital unit clerk present during exam) Lymphatic: No Adenopathy Assessment/Plan Assessment/Plan Assessment/Plan s/p I&D right labial abscess. continue dressing changes bid. Continue pain and abx therapy start diabetic diet for this evening and move to NPO at midnight continue warm compress over rt labia f/u tomorrow morning for possible repeat I&D patient and family agree with plan Supervisory-Addendum Brief Verification & Attestation Participated in pt care: history, MDM, physical Personally performed: exam, history, MDM, supervision of care Care discussed with: Medical Student Procedures: n/a Results interpretation: Verified all documentation Verification and Attestation of Medical Student E/M Service A medical student performed and documented this service in my presence. I revie wed and verified all information documented by the medical student and made modifications to such information, when appropriate. I personally performed the physical exam and medical decision making. Esau Tarango, Aug 17, 2022,18:05 TINA CABELLO Aug 17, 2022 12:37 ESAU TARANGO DO Aug 17, 2022 18:05
--- NOTE | 2022-08-17 14:20 | Progress Note ---
Subjective Subjective/Events-last exam Patient states that she had pain overnight. This AM states that she is feeling better. She has been getting up and going to bathroom. Tolerating PO diet. Review of Systems General: No Chills Pulmonary: No Dyspnea, No Cough Cardiovascular: No: Chest Pain, Palpitations Gastrointestinal: No: Nausea, Vomiting, Abdominal Pain, Diarrhea, Constipation Genitourinary: Other (swelling, pain and drainage from right labia) Focused Exam Time of Focused Exam: 04:30 Objective Exam Last Set of Vital Signs Vital Signs Date Time Temp Pulse Resp B/P (MAP) Pulse Ox O2 Delivery O2 Flow Rate FiO2 08/17/22 11:56 36.1 84 18 129/77 (94) 93 Room Air 08/17/22 08:14 0.00 08/16/22 03:16 21 Capillary Refill : Less Than 3 SecondsLess Than 3 Seconds I&O Intake and Output 08/17/22 00:00 Intake Total 1490 ml Output Total 500 ml Balance 990 ml Intake Oral 1490 ml Output Urine Total 500 ml # Voids 4 General: Alert, Oriented X3, No Acute Distress Lungs: Clear to Auscultation, Normal Air Movement Heart: Regular Rate, No Murmurs Abdomen: Normal Bowel Sounds, Soft, No Tenderness, No Masses Extremities: No Edema, No Tenderness/Swelling Skin: Other (Right labia: + erythema and pain with palpation, minimal drainage) Results/Procedures Lab Laboratory Tests 08/16/22 15:25: Glucometer 175H 08/16/22 20:58: Glucometer 145H 08/17/22 05:00: White Blood Count 7.4, Red Blood Count 2.98L, Hemoglobin 9.0L, Hematocrit 28L, Mean Corpuscular Volume 92, Mean Corpuscular Hemoglobin 30, Mean Corpuscular Hemoglobin Concent 33, Red Cell Distribution Width 12.9, Platelet Count 245, Mean Platelet Volume 9.7, Immature Granulocyte % (Auto) 1, Neutrophils (%) (Auto) 55, Lymphocytes (%) (Auto) 25, Monocytes (%) (Auto) 14H, Eosinophils (%) (Auto) 5, Basophils (%) (Auto) 1, Neutrophils # (Auto) 4.1, Lymphocytes # (Auto) 1.9, Monocytes # (Auto) 1.0, Eosinophils # (Auto) 0.4H, Basophils # (Auto) 0.0, Immature Granulocyte # (Auto) 0.1, Sodium Level 141, Potassium Level 3.5L, Chloride Level 109H, Carbon Dioxide Level 23, Anion Gap 9, Blood Urea Nitrogen 15, Creatinine 0.65, Estimat Glomerular Filtration Rate 113, BUN/Creatinine Ratio 23, Glucose Level 174H, Calcium Level 8.5, Corrected Calcium 9.5, Magnesium Level 1.7, Total Bilirubin 0.1, Aspartate Amino Transf (AST/SGOT) 33, Alanine Aminotransferase (ALT/SGPT) 44, Alkaline Phosphatase 129, Total Protein 5.8L, Albumin 2.7L 08/17/22 11:04: Glucometer 68L Microbiology 08/13/22 Gram Stain - Final, Resulted 08/13/22 Anaerobic Culture - Preliminary, Resulted Mixed anaerobic angie 08/13/22 Surgical Culture - Final, Resulted Enterococcus faecalis Escherichia coli 08/13/22 Fungal Culture 1 - Preliminary, Resulted 08/13/22 MRSA Screen - Final, Complete MRSA not isolated 08/13/22 Blood Culture - Preliminary, Resulted No growth 08/13/22 Urine Culture - Final, Complete Gram Pos Mixed Bacterial Angie Assessment/Plan Assessment/Plan (1) DKA (diabetic ketoacidosis) Status: Resolved Assessment & Plan: 08/16: Resolved Qualifiers: Qualified Codes: E11.10 - Type 2 diabetes mellitus with ketoacidosis without coma (2) Abscess of right genital labia Status: Acute Assessment & Plan: 08/16: Swelling and redness not much improved, continue IV antibiotics, wound care consulted, will need HH with wound care at D/c 08/17: NPO at midnight, possible repeat I&D tomorrow with Emelina (3) Diabetes mellitus, insulin dependent (IDDM), uncontrolled Status: Acute Assessment & Plan: 08/16: Uncontrolled, A1c 12.8, discussed the need to get blood sugars more controlled with goal A1c <7.0 for better wound healing SAYDA CHAVEZ MD Aug 17, 2022 14:20
[2022-08-17 16:00] VITALS: BP 132/83
[2022-08-17 19:35] VITALS: BP 168/93
[2022-08-17] MEDS: OLANZapine 5 MG ODT (ZyPREXA ZYDIS) PO SCH (20:43)
[2022-08-17] MEDS: PANTOPRAZOLE 40 MG (PROTONIX) TAB PO SCH (20:43)
[2022-08-17] MEDS: HYPOCHLOROUS ACID/NaCl (VASHE) 250 ML IR PRN (20:45)
[2022-08-17] MEDS: HYDROmorphone 2 MG/ML VIAL (DILAUDID) IV PRN (22:06)
[2022-08-18] VITALS (12 sets, daily range): BP systolic 111–159; BP diastolic 64–95
[2022-08-18] MEDS: VANCOMYCIN 1250 MG/NS 250 ML IVPB IV SCH ×2 (03:31)
[2022-08-18] MEDS: ENOXAPARIN 40 MG/0.4 ML (LOVENOX) SYR SC SCH (03:41)
[2022-08-18] MEDS: MULTIVIT W/MINERALS TAB (THERAGRAN M) PO SCH (05:57)
[2022-08-18] MEDS: LEVOTHYROXINE 75 MCG (LEVOTHROID) TABLET PO SCH (05:57)
[2022-08-18] MEDS: inSUlin ASPART (NovoLOG) 1 UNIT/0.01 ML (CHARGE PER UNIT) SC SCH ×7 (05:57→21:20)
[2022-08-18 06:44] LABS: BASOPHILS % (AUTO) 1 % (0-10); EOSINOPHILS # (AUTO) 0.3 10^3/uL (0.0-0.3); EOSINOPHILS % (AUTO) 4 % (0-10); HEMATOCRIT 28 % (35-52); HEMOGLOBIN 9.1 g/dL (11.5-16.0); LYMPHOCYTES # (AUTO) 1.9 10^3/uL (1.0-4.0); LYMPHOCYTES % (AUTO) 23 % (12-44); MEAN CORPUSCULAR HEMOGLOBIN 31 pg (25-34); MEAN CORPUSCULAR HGB CONC 33 g/dL (32-36); MEAN CORPUSCULAR VOLUME 93 fL (80-99); MEAN PLATELET VOLUME 9.5 fL (9.0-12.2); MONOCYTES # (AUTO) 1.2 10^3/uL (0.0-1.0); MONOCYTES % (AUTO) 14 % (0-12); NEUTROPHILS # (AUTO) 4.8 10^3/uL (1.8-7.8); NEUTROPHILS % (AUTO) 57 % (42-75); PLATELET COUNT 277 10^3/uL (130-400); WHITE BLOOD COUNT 8.4 10^3/uL (4.3-11.0)
[2022-08-18 07:11] LABS: ALBUMIN 2.6 GM/DL (3.2-4.5); BILIRUBIN,TOTAL 0.1 MG/DL (0.1-1.0); CALCIUM 8.6 MG/DL (8.5-10.1); CREATININE SERUM 0.62 MG/DL (0.60-1.30); MAGNESIUM 1.8 MG/DL (1.6-2.4); POTASSIUM 3.5 MMOL/L (3.6-5.0); TOTAL PROTEIN 5.6 GM/DL (6.4-8.2)
--- NOTE | 2022-08-18 07:40 | Progress Note - Surgery ---
TINA CABELLO 08/18/22 0740: Subjective Date Seen by a Provider: Aug 18, 2022 Time Seen by a Provider: 07:15 Subjective/Events-last exam 42 F on day 5 of admission for DKA and rt labial abscess is resting bed with reports of labial pain that is sharp and localized rating 7/10 and exacerbated upon movement or palpation. Alleviated with rest. Pt also claims she is having an increase in difficulty with BMs. reports they are "solid as a rock and hard to pass." Pt reports minimal to no discharge overnight from wound. Pt tolerated dinner last evening and placed on NPO at midnight. Review of Systems General: No Chills, No Night Sweats HEENT: No Head Aches, No Visual Changes Pulmonary: No Dyspnea, No Cough Cardiovascular: No: Chest Pain, Lt Headedness Gastrointestinal: Other (mild difficulty passing stool ); No: Nausea, Vomiting Genitourinary: No Dysuria, No Frequency Musculoskeletal: No: arm pain, leg pain Neurological: No: Weakness, Numbness Focused Exam Time of Focused Exam: 04:30 Objective Exam Vital Signs Date Time Temp Pulse Resp B/P (MAP) Pulse Ox O2 Delivery O2 Flow Rate FiO2 08/18/22 03:45 36.7 95 20 135/81 (99) 96 Nasal Cannula 2.00 08/18/22 00:02 36.9 72 19 148/88 (108) 99 Nasal Cannula 2.00 08/17/22 20:45 Room Air 08/17/22 19:35 36.5 94 18 168/93 (118) 93 Room Air 08/17/22 17:36 36.6 08/17/22 17:06 36.6 08/17/22 16:00 36.6 85 18 132/83 (99) 94 Room Air 08/17/22 11:56 36.1 84 18 129/77 (94) 93 Room Air 08/17/22 08:23 37.1 08/17/22 08:14 95 Room Air 0.00 I & O 08/18/22 07:00 Intake Total 2169.0 ml Balance 2169.0 ml Capillary Refill : Less Than 3 SecondsLess Than 3 Seconds General Appearance: No Apparent Distress, Obese HEENT: PERRL/EOMI, Moist Mucous Membranes Neck: Normal Inspection, Supple Respiratory: Chest Non Tender, Lungs Clear, Normal Breath Sounds, No Accessory Muscle Use, No Respiratory Distress Cardiovascular: Regular Rate, Rhythm, No Murmur, Normal Peripheral Pulses Peripheral Pulses: 3+ Dorsalis Pedis (R), 3+ Left Dors-Pedis (L), 3+ Radial Pulses (R), 3+ Radial Pulses (L) Gastrointestinal: normal bowel sounds, non tender, soft, no organomegaly, no pulsatile mass Extremity: Normal Capillary Refill, Normal Inspection, Normal Range of Motion Neurologic/Psychiatric: Alert, Oriented x3 Skin: Warm/Dry, Other (right labial edema that is painful to palpation, incision with no apparent drainge, area of induration/erythema of right labia that has continued to mildly improve compared to yesterday no fluctuance. supervisor heading present during exam) Lymphatic: No Adenopathy Results Lab Laboratory Tests 08/17/22 11:04: Glucometer 68L 08/17/22 15:41: Glucometer 182H 08/17/22 20:26: Glucometer 171H 08/18/22 05:24: Glucometer 122H 08/18/22 06:21: White Blood Count 8.4, Red Blood Count 2.98L, Hemoglobin 9.1L, Hematocrit 28L, Mean Corpuscular Volume 93, Mean Corpuscular Hemoglobin 31, Mean Corpuscular Hemoglobin Concent 33, Red Cell Distribution Width 13.0, Platelet Count 277, Mean Platelet Volume 9.5, Immature Granulocyte % (Auto) 2, Neutrophils (%) (Auto) 57, Lymphocytes (%) (Auto) 23, Monocytes (%) (Auto) 14H, Eosinophils (%) (Auto) 4, Basophils (%) (Auto) 1, Neutrophils # (Auto) 4.8, Lymphocytes # (Auto) 1.9, Monocytes # (Auto) 1.2H, Eosinophils # (Auto) 0.3, Basophils # (Auto) 0.0, Immature Granulocyte # (Auto) 0.2H, Sodium Level 144, Potassium Level 3.5L, Chloride Level 109H, Carbon Dioxide Level 24, Anion Gap 11, Blood Urea Nitrogen 17, Creatinine 0.62, Estimat Glomerular Filtration Rate 115, BUN/Creatinine Ratio 27, Glucose Level 104, Calcium Level 8.6, Corrected Calcium 9.7, Magnesium Level 1.8, Total Bilirubin 0.1, Aspartate Amino Transf (AST/SGOT) 23, Alanine Aminotransferase (ALT/SGPT) 37, Alkaline Phosphatase 115, Total Protein 5.6L, Albumin 2.6L Microbiology 08/13/22 Gram Stain - Final, Resulted 08/13/22 Anaerobic Culture - Preliminary, Resulted Mixed anaerobic angie 08/13/22 Surgical Culture - Final, Resulted Enterococcus faecalis Escherichia coli 08/13/22 Fungal Culture 1 - Preliminary, Resulted 08/13/22 MRSA Screen - Final, Complete MRSA not isolated 08/13/22 Blood Culture - Preliminary, Resulted No growth 08/13/22 Urine Culture - Final, Complete Gram Pos Mixed Bacterial Angie Assessment/Plan Assessment/Plan Assessment/Plan s/p I&D right labial abscess. continue dressing changes bid. Continue pain and abx therapy continue NPO until completion of I&D continue warm compress over rt labia Obtain consent Pt and family educated on indications, risks, and benefits and chose to continue with repeat I&D today of rt labial abscess ESAU TARANGO DO 08/18/22 0836: Subjective Subjective/Events-last exam Patient still with pain to right labia. Report no signficant change. Minimal drainage. NPO currently. Denies n/v fever sweats chills shortness of breath or chest pain. Objective Exam General Appearance: No Apparent Distress, Obese HEENT: PERRL/EOMI, Moist Mucous Membranes Neck: Normal Inspection, Supple Respiratory: Chest Non Tender, No Accessory Muscle Use, No Respiratory Distress Cardiovascular: Regular Rate, Rhythm, No JVD Gastrointestinal: non tender, soft Neurologic/Psychiatric: Alert, Oriented x3 Skin: Other (right labial edema that is painful to palpation, incision with no apparent drainge, area of induration/erythema maybe slight fluctuance of right labia that is about the same as yesterday, supervisor heading present during exam) Lymphatic: No Adenopathy Assessment/Plan Assessment/Plan Assessment/Plan s/p I&D right labial abscess. continue dressing changes bid. Continue pain and abx therapy continue NPO continue warm compress over rt labia Obtain consent for incision and drainage of right labia all other indicated procedures Pt and family educated on indications, risks, and benefits and chose to continue with repeat I&D today of rt labial abscess To OR today. Supervisory-Addendum Brief Verification & Attestation Participated in pt care: history, MDM, physical Personally performed: exam, history, MDM, supervision of care Care discussed with: Medical Student Procedures: n/a Results interpretation: Verified all documentation Verification and Attestation of Medical Student E/M Service A medical student performed and documented this service in my presence. I review ed and verified all information documented by the medical student and made modifications to such information, when appropriate. I personally performed the physical exam and medical decision making. Esau Tarango, Aug 18, 2022,08:36 TINA CABELLO Aug 18, 2022 07:40 ESAU TARANGO DO Aug 18, 2022 08:36
[2022-08-18] MEDS: DOCUSATE SODIUM 100 MG (COLACE) CAP PO SCH ×2 (08:52→21:19)
[2022-08-18] MEDS: LACTOBACILLUS ACIDOPHILUS (PROBIOTIC) CAPSULE PO SCH ×3 (08:52→18:33)
[2022-08-18] MEDS: DIVALPROEX EXT RELEASE 250 MG (DEPAKOTE ER) TAB PO SCH ×2 (08:52→21:19)
[2022-08-18] MEDS: FLUoxetine HCL 20 MG (PROzac) CAP PO SCH (08:53)
[2022-08-18] MEDS: SENNOSIDES 8.6 MG (SENOKOT) TAB PO SCH ×2 (08:53→21:18)
[2022-08-18] MEDS: FLUCONAZOLE 100 MG/50 ML 50 ML IV SCH (09:38)
[2022-08-18] MEDS: MICONAZOLE 2% POWDER (DESENEX AF) 90 GM TOP SCH ×2 (09:39→21:20)
[2022-08-18] MEDS: metroNIDAZOLE 500MG/100ML IVPB 100 ML IV SCH ×2 (09:39→21:19)
[2022-08-18] MEDS ORDERED: DEXTROSE 50% 50 ML (IMS) SYR ONE (11:26)
[2022-08-18] MEDS ORDERED: DEXTROSE 50% 50 ML (IMS) SYR IV ONE (11:30)
--- NOTE | 2022-08-18 11:46 | Progress Note ---
SONIA GARCIA A MED STUDENT 08/18/22 1146: Subjective Date Seen by a Provider: Aug 18, 2022 Time Seen by a Provider: 09:20 Subjective/Events-last exam Pt being seen in f/u for labial abscess and DKA. Pt reports she is doing about the same today. General surgery plans to do labial abscess incision and drainage today. Pt is ready for this to happen so she can get better. Wound care has been consulted and saw the pt yesterday. Pt has no other concerns. Family was not in the room at time of exam. Review of Systems General: No Chills, No Fatigue HEENT: No Head Aches, No Visual Changes Pulmonary: No Dyspnea, No Cough Cardiovascular: No: Chest Pain, Palpitations Gastrointestinal: No: Nausea, Vomiting, Abdominal Pain Genitourinary: No Dysuria, No Frequency Musculoskeletal: No: neck pain, shoulder pain Neurological: No: Weakness, Numbness Focused Exam Time of Focused Exam: 04:30 Objective Exam Last Set of Vital Signs Vital Signs Date Time Temp Pulse Resp B/P (MAP) Pulse Ox O2 Delivery O2 Flow Rate FiO2 08/18/22 11:17 Room Air 08/18/22 08:18 36.6 88 18 149/87 (107) 95 08/18/22 03:45 2.00 08/16/22 03:16 21 Capillary Refill : Less Than 3 SecondsLess Than 3 Seconds I&O Intake and Output 08/18/22 00:00 Intake Total 1806.5 ml Output Total 75 ml Balance 1731.5 ml Intake Oral 1194 ml IV Total 612.5 ml Drainage Total 75 ml # Voids 4 # Bowel Movements 1 General: Alert, Oriented X3 HEENT: Atraumatic, PERRLA Lungs: Clear to Auscultation Heart: Regular Rate, Normal S1 Abdomen: Normal Bowel Sounds, Soft Extremities: No Clubbing, No Cyanosis Skin: No Rashes, No Breakdown Neuro: Normal Speech, Normal Tone Results Lab Laboratory Tests 08/17/22 15:41: Glucometer 182H 08/17/22 20:26: Glucometer 171H 08/18/22 05:24: Glucometer 122H 08/18/22 06:21: White Blood Count 8.4, Red Blood Count 2.98L, Hemoglobin 9.1L, Hematocrit 28L, Mean Corpuscular Volume 93, Mean Corpuscular Hemoglobin 31, Mean Corpuscular Hemoglobin Concent 33, Red Cell Distribution Width 13.0, Platelet Count 277, Mean Platelet Volume 9.5, Immature Granulocyte % (Auto) 2, Neutrophils (%) (A uto) 57, Lymphocytes (%) (Auto) 23, Monocytes (%) (Auto) 14H, Eosinophils (%) (Auto) 4, Basophils (%) (Auto) 1, Neutrophils # (Auto) 4.8, Lymphocytes # (Auto) 1.9, Monocytes # (Auto) 1.2H, Eosinophils # (Auto) 0.3, Basophils # (Auto) 0.0, Immature Granulocyte # (Auto) 0.2H, Sodium Level 144, Potassium Level 3.5L, Chloride Level 109H, Carbon Dioxide Level 24, Anion Gap 11, Blood Urea Nitrogen 17, Creatinine 0.62, Estimat Glomerular Filtration Rate 115, BUN/Creatinine Ratio 27, Glucose Level 104, Calcium Level 8.6, Corrected Calcium 9.7, Magnesium Level 1.8, Total Bilirubin 0.1, Aspartate Amino Transf (AST/SGOT) 23, Alanine Aminotransferase (ALT/SGPT) 37, Alkaline Phosphatase 115, Total Protein 5.6L, Albumin 2.6L Microbiology 08/13/22 Gram Stain - Final, Resulted 08/13/22 Anaerobic Culture - Preliminary, Resulted Mixed anaerobic angie 08/13/22 Surgical Culture - Final, Resulted Enterococcus faecalis Escherichia coli 08/13/22 Fungal Culture 1 - Preliminary, Resulted 08/13/22 MRSA Screen - Final, Complete MRSA not isolated 08/13/22 Blood Culture - Preliminary, Resulted No growth 08/13/22 Urine Culture - Final, Complete Gram Pos Mixed Bacterial Angie Assessment/Plan Assessment/Plan Assess & Plan/Chief Complaint Right labial abscess -Vancomycin, Meropenem, Flagyl and fluconazole -General surgery to do I&D today -Wound care consulted T2DM with DKA -DKA resolved -SSI -A1c of 12.8 -Diabetic education to be provided Acute intermittent hypoxia -2L NC prn for oxygen saturation below 90% Anemia -Likely dilutional, will continue to monitor Hypokalemia -K+ 3.5 -Will continue to monitor Hypothyroidism -Synthroid SAYDA GIL MD 08/18/222039: Supervisory-Addendum Brief Verification & Attestation Participated in pt care: history, physical Personally performed: exam, history Care discussed with: Medical Student Procedures: n/a Verification and Attestation of Medical Student E/M Service A medical student performed and documented this service in my presence. I reviewed and verified all information documented by the medical student and made modifications to such information, when appropriate. I personally performed the physical exam and medical decision making. Sayda Gil, Aug 18, 2022,20:39 Right Labial Abscess IDDM: Uncontrolled Patient to OR today, continue IV antibiotics, currently NPO for surgery SONIA GARCIA MED STUDENT Aug 18, 2022 11:46 SAYDA GIL MD Aug 18, 2022 20:40
[2022-08-18] MEDS ORDERED: MEROPENEM 500 MG in NS (IVPB) 100 ML IV SCH (12:00)
[2022-08-18] MEDS ORDERED: LIDOCAINE/EPI 1%-1:100,000 (XYLOCAINE) 10 ML ONE (12:04)
[2022-08-18] MEDS ORDERED: proPOfol 200 MG/20 ML (DIPRIVAN) VIAL IV ONE (12:06)
[2022-08-18] MEDS ORDERED: fentaNYL INJ 100 MCG/2 ML AMP ONE (12:06)
[2022-08-18] MEDS ORDERED: ONDANSETRON 4 MG/2 ML (SDV) Z0FRAN ONE (12:06)
[2022-08-18] MEDS ORDERED: MIDAZOLAM 2 MG/2 ML (VERSED) VIAL ONE (12:06)
[2022-08-18] MEDS ORDERED: LIDOCAINE PF 2% 5 ML (XYLOCAINE) VIAL ONE (12:06)
[2022-08-18] MEDS ORDERED: morphine INJ 10 MG/ML 1ML (SYR OR VIAL) IVP ONE (12:30)
[2022-08-18] MEDS ORDERED: ONDANSETRON 4 MG/2 ML (SDV) Z0FRAN IVP PRN (12:30)
[2022-08-18] MEDS ORDERED: LACTATED RINGERS 1,000 ML IV PRN (12:30)
[2022-08-18] MEDS ORDERED: PHENYLEPHRINE 100 MCG/ML 10 ML (ANESTHESIA) SYR ONE (12:42)
[2022-08-18] MEDS ORDERED: SEVOFLURANE (ULTANE) 15 ML INHAL SOLN ONE (13:16)
[2022-08-18] MEDS ORDERED: DEXTROSE 50% 50 ML (IMS) SYR IV NR (13:30)
[2022-08-18] MEDS ORDERED: morphine INJ 10 MG/ML 1ML (SYR OR VIAL) ONE (13:39)
[2022-08-18] MEDS: ONDANSETRON 4 MG/2 ML (SDV) Z0FRAN IVP PRN (14:23)
[2022-08-18] MEDS: MEROPENEM 500 MG in NS (IVPB) 100 ML IV SCH ×3 (15:04→22:45)
--- NOTE | 2022-08-18 15:29 | Anesthesia-General Post-Op ---
General Patient Condition Mental Status/LOC: Same as Preop Cardiovascular: Satisfactory Nausea/Vomiting: Absent Respiratory: Satisfactory Pain: Controlled Complications: Absent Post Op Complications Complications None Follow Up Care/Instructions Patient Instructions None needed. Anesthesia/Patient Condition Patient Condition Patient was given 0.5 amp D50 for a FSBS of 65 mg/dL on PACU arrival. It increased appropriately. She did have some pain in PACU but was otherwise doing well, no complaints, stable vital signs, no apparent adverse anesthesia problems. No complications reported per nursing. JAIDA CONDON DO Aug 18, 2022 15:29
[2022-08-18] MEDS: PANTOPRAZOLE 40 MG (PROTONIX) TAB PO SCH (21:18)
[2022-08-18] MEDS: HYDROmorphone 2 MG/ML VIAL (DILAUDID) IV PRN (21:18)
[2022-08-18] MEDS: OLANZapine 5 MG ODT (ZyPREXA ZYDIS) PO SCH (21:19)
[2022-08-19] VITALS (7 sets, daily range): BP systolic 118–165; BP diastolic 75–84
[2022-08-19] MEDS: LORazepam 0.5 MG (ATIVAN) TABLET PO PRN (00:05)
--- NOTE | 2022-08-19 03:14 | OPERATIVE REPORT ---
DATE OF SERVICE: 08/18/2022 PREOPERATIVE DIAGNOSIS: Right labial abscess. POSTOPERATIVE DIAGNOSIS: Right labial abscess. PROCEDURE: Incision and drainage of right labial abscess. SURGEON: Esau Tarango DO. ANESTHESIA: General. ESTIMATED BLOOD LOSS: Minimal. COMPLICATIONS: None. INDICATIONS: The patient is a 42-year-old female with a right labial abscess. She had previous incision and drainage earlier, but has significant indurated tissue, not really improving, and felt that there was still abscess, possibly present and discuss further surgical intervention. She understands and wishes to proceed. Consent was signed in the chart. DESCRIPTION OF PROCEDURE: The patient was taken to the operating suite. She was placed in lithotomy position. Timeout was performed. Cautery was used to open up the skin of the right labia further, which had significant indurated tissue just no significant purulent drainage. This was then taken out further and still felt like there might be an area of fluctuance deeper to the tissue that was exposed. An 18-gauge needle was inserted and guided into some purulent material that was able to visualize. Cautery was used to continue to dissect down through the deeper tissues of the right labia and an area of purulent material was erupted. A tract was present, which was able to be located palpation within the finger and that pocket was opened up completely the overall dimensions approximately 10 x 3 cm. Copious amounts of irrigation was used to irrigate the wound. Hemostasis was achieved. The wound was then packed with Kerlix soaked in Betadine. The area was washed and dried and sterile bandages were applied. The patient tolerated procedure well without any complications, taken to recovery room in stable condition. The patient will continue on current antibiotics. We will need continued wound care. Possibly could need further surgical intervention. Job ID: [id number] DocumentID: [id number] Dictated Date: 08/18/2022 17:39:53 Certified Forklift Operator Date: 08/19/2022 03:13:29 Dictated By: ESAU TARANGO DO
[2022-08-19] MEDS: MEROPENEM 500 MG in NS (IVPB) 100 ML IV SCH ×4 (03:59→22:15)
[2022-08-19 05:47] LABS: ALBUMIN 2.5 GM/DL (3.2-4.5); POTASSIUM 3.8 MMOL/L (3.6-5.0)
[2022-08-19 05:48] LABS: CALCIUM 8.1 MG/DL (8.5-10.1)
[2022-08-19 05:49] LABS: TOTAL PROTEIN 5.3 GM/DL (6.4-8.2)
[2022-08-19 05:51] LABS: BILIRUBIN,TOTAL 0.2 MG/DL (0.1-1.0)
[2022-08-19 05:53] LABS: CREATININE SERUM 0.63 MG/DL (0.60-1.30)
[2022-08-19 05:56] LABS: MAGNESIUM 1.7 MG/DL (1.6-2.4)
[2022-08-19 06:17] LABS: BASOPHILS # (AUTO) 0.1 10^3/uL (0.0-0.1); BASOPHILS % (AUTO) 1 % (0-10); EOSINOPHILS # (AUTO) 0.4 10^3/uL (0.0-0.3); EOSINOPHILS % (AUTO) 4 % (0-10); HEMATOCRIT 29 % (35-52); HEMOGLOBIN 9.5 g/dL (11.5-16.0); LYMPHOCYTES # (AUTO) 2.1 10^3/uL (1.0-4.0); LYMPHOCYTES % (AUTO) 19 % (12-44); MEAN CORPUSCULAR HEMOGLOBIN 30 pg (25-34); MEAN CORPUSCULAR HGB CONC 32 g/dL (32-36); MEAN CORPUSCULAR VOLUME 92 fL (80-99); MEAN PLATELET VOLUME 11.3 fL (9.0-12.2); MONOCYTES # (AUTO) 1.6 10^3/uL (0.0-1.0); MONOCYTES % (AUTO) 15 % (0-12); NEUTROPHILS # (AUTO) 6.4 10^3/uL (1.8-7.8); NEUTROPHILS % (AUTO) 60 % (42-75); PLATELET COUNT 290 10^3/uL (130-400); WHITE BLOOD COUNT 10.7 10^3/uL (4.3-11.0)
[2022-08-19] MEDS: inSUlin ASPART (NovoLOG) 1 UNIT/0.01 ML (CHARGE PER UNIT) SC SCH ×7 (06:27→22:17)
[2022-08-19] MEDS: MULTIVIT W/MINERALS TAB (THERAGRAN M) PO SCH (06:32)
[2022-08-19] MEDS: ENOXAPARIN 40 MG/0.4 ML (LOVENOX) SYR SC SCH (06:32)
[2022-08-19] MEDS: LEVOTHYROXINE 75 MCG (LEVOTHROID) TABLET PO SCH (06:32)
--- NOTE | 2022-08-19 07:12 | Progress Note - Surgery ---
TINA CABELLO 08/19/22 0712: Subjective Date Seen by a Provider: Aug 19, 2022 Time Seen by a Provider: 07:07 Subjective/Events-last exam 42 F s/p repeat I&D of rt labial abscess is restng comfortably in bed. Pt reports labial pain as 7/10 that is sharp and localized that is worse with movement or palpation but feel better than yesterday. Pt expresses pain upon voiding when wiping. Vinicio any chest pin, SOB, fever, chills, N/V. Wound was covered with padding this morning with reports of minimal drainage. Per nurse, pt claimed packing fell out when using bathroom but was never seen in toilet. Unsure if packing remains due to bandage covering. Focused Exam Time of Focused Exam: 04:30 Objective Exam Vital Signs Date Time Temp Pulse Resp B/P (MAP) Pulse Ox O2 Delivery O2 Flow Rate FiO2 08/19/22 03:53 36.5 91 20 140/76 (97) 93 Room Air 08/19/22 00:00 36.7 92 22 158/84 (108) 97 Nasal Cannula 2.00 08/18/22 20:05 36.5 88 19 145/92 (109) 96 Nasal Cannula 2.00 08/18/22 20:00 Nasal Cannula 2.00 08/18/22 15:57 36.5 90 16 159/95 (116) 95 Nasal Cannula 2.00 08/18/22 14:12 Nasal Cannula 2.00 08/18/22 14:00 36.6 17 146/86 (106) 95 Nasal Cannula 2.00 08/18/22 13:56 OxyMask 3.00 08/18/22 13:50 16 146/82 (103) 96 OxyMask 2.00 08/18/22 13:40 18 145/86 (105) 95 OxyMask 3.00 08/18/22 13:31 OxyMask 6.00 08/18/22 13:30 20 144/92 (109) 94 OxyMask 4.00 08/18/22 13:20 20 128/75 (92) 93 OxyMask 6.00 08/18/22 13:16 36.5 16 111/64 (80) 92 OxyMask 8.00 08/18/22 13:16 OxyMask 8.00 08/18/22 12:08 36.8 88 17 151/88 (109) 95 Room Air 08/18/22 11:17 Room Air 08/18/22 08:18 36.6 88 18 149/87 (107) 95 Room Air 08/18/22 08:00 Room Air I & O 08/19/22 07:00 Intake Total 1824 ml Output Total 30 ml Balance 1794 ml Capillary Refill : Less Than 3 SecondsLess Than 3 Seconds General Appearance: No Apparent Distress, Obese HEENT: PERRL/EOMI, Moist Mucous Membranes Neck: Normal Inspection, Non Tender, Supple Respiratory: Chest Non Tender, Lungs Clear, Normal Breath Sounds, No Accessory Muscle Use, No Respiratory Distress Cardiovascular: Regular Rate, Rhythm, No JVD, No Murmur, Normal Peripheral Pulses Peripheral Pulses: 3+ Dorsalis Pedis (R), 3+ Left Dors-Pedis (L), 3+ Radial Pulses (R), 3+ Radial Pulses (L) Gastrointestinal: normal bowel sounds, non tender, soft, no organomegaly, no pulsatile mass Extremity: Normal Capillary Refill, Normal Inspection, Normal Range of Motion, No Calf Tenderness Neurologic/Psychiatric: Alert, Oriented x3, Normal Mood/Affect Skin: Normal Color, Warm/Dry, Other (right labial edema that is painful to palpation, incision with no apparent drainge, area of induration/erythema maybe slight fluctuance of right labia that is about the same as yesterday, 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) Lymphatic: No Adenopathy Results Lab Laboratory Tests 08/18/22 11:20: Glucometer 58*L 08/18/22 11:47: Glucometer 98 08/18/22 13:20: Glucometer 65L 08/18/22 13:53: Glucometer 130H 08/18/22 14:37: Glucometer 88 08/18/22 15:22: Glucometer 90 08/18/22 20:51: Glucometer 136H 08/19/22 05:07: White Blood Count 10.7, Red Blood Count 3.17L, Hemoglobin 9.5L, Hematocrit 29L, Mean Corpuscular Volume 92, Mean Corpuscular Hemoglobin 30, Mean Corpuscular Hemoglobin Concent 32, Red Cell Distribution Width 13.2, Platelet Count 290, Mean Platelet Volume 11.3, Immature Granulocyte % (Auto) 2, Neutrophils (%) (Auto) 60, Lymphocytes (%) (Auto) 19, Monocytes (%) (Auto) 15H, Eosinophils (%) (Auto) 4, Basophils (%) (Auto) 1, Neutrophils # (Auto) 6.4, Lymphocytes # (Auto) 2.1, Monocytes # (Auto) 1.6H, Eosinophils # (Auto) 0.4H, Basophils # (Auto) 0.1, Immature Granulocyte # (Auto) 0.2H, Sodium Level 139, Potassium Level 3.8, Chloride Level 106, Carbon Dioxide Level 23, Anion Gap 10, Blood Urea Nitrogen 13, Creatinine 0.63, Estimat Glomerular Filtration Rate 114, BUN/Creatinine Ratio 21, Glucose Level 139H, Calcium Level 8.1L, Corrected Calcium 9.3, Magnesium Level 1.7, Total Bilirubin 0.2, Aspartate Amino Transf (AST/SGOT) 25, Alanine Aminotransferase (ALT/SGPT) 29, Alkaline Phosphatase 99, Total Protein 5.3L, Albumin 2.5L 08/19/22 05:42: Glucometer 124H Microbiology 08/13/22 Gram Stain - Final, Resulted 08/13/22 Anaerobic Culture - Final, Resulted Mixed anaerobic angie 08/13/22 Surgical Culture - Final, Resulted Enterococcus faecalis Escherichia coli 08/13/22 Fungal Culture 1 - Preliminary, Resulted 08/13/22 MRSA Screen - Final, Complete MRSA not isolated 08/13/22 Blood Culture - Final, Complete No growth 08/13/22 Urine Culture - Final, Complete Gram Pos Mixed Bacterial Angie Assessment/Plan Assessment/Plan Assessment/Plan s/p repeat rt labial abscess I&D continue IV abx therapy continue IV fluids continue on diabetic diet pain control PRN dressing changes bid ESAU TARANGO DO 08/20/22 1650: Subjective Subjective/Events-last exam Having pain in the right labial area. Maybe a little bit better than yesterday. Having minimal drainage from the area. Having a hard time keeping packing in. Falling out when she is going to the bathroom. Denies any other complaints. Denies any nausea vomiting fever sweats chills shortness of breath or chest pain. Objective Exam General Appearance: No Apparent Distress, Obese HEENT: PERRL/EOMI, Normal ENT Inspection, Moist Mucous Membranes Neck: Normal Inspection, Non Tender Respiratory: Chest Non Tender, No Accessory Muscle Use, No Respiratory Distress Cardiovascular: Regular Rate, Rhythm, No JVD Gastrointestinal: non tender, soft Extremity: Normal Inspection, No Calf Tenderness Neurologic/Psychiatric: Alert, Oriented x3, Normal Mood/Affect Skin: Normal Color, Warm/Dry, Other (right labial open, scant drainage) Lymphatic: No Adenopathy Assessment/Plan Assessment/Plan Assessment/Plan right labial abscess dka s/p i and d right labial abscess continue abx continue wound care slow improvement due to deeper abscess that required opening up yesterday. need to keep skin of wound open may benefit from vac will discuss with family as well Supervisory-Addendum Brief Verification & Attestation Participated in pt care: history, MDM, physical Personally performed: exam, history, MDM, supervision of care Care discussed with: Medical Student Procedures: n/a Results interpretation: Verified all documentation Verification and Attestation of Medical Student E/M Service A medical student performed and documented this service in my presence. I reviewed and verified all information documented by the medical student and made modifications to such information, when appropriate. I personally performed the physical exam and medical decision making. Esau Tarango, Aug 19, 2022,13:49 TINA CABELLO Aug 19, 2022 07:12 ESAU TARANGO DO Aug 20, 2022 16:50
[2022-08-19] MEDS: DIVALPROEX EXT RELEASE 250 MG (DEPAKOTE ER) TAB PO SCH ×2 (08:26→22:13)
[2022-08-19] MEDS: SENNOSIDES 8.6 MG (SENOKOT) TAB PO SCH ×2 (08:27→22:17)
[2022-08-19] MEDS: FLUoxetine HCL 20 MG (PROzac) CAP PO SCH (08:27)
[2022-08-19] MEDS: LACTOBACILLUS ACIDOPHILUS (PROBIOTIC) CAPSULE PO SCH ×3 (08:28→17:32)
[2022-08-19] MEDS: fluCOnazole (DIFLUCAN) 100 MG TAB PO SCH (08:28)
[2022-08-19] MEDS: DOCUSATE SODIUM 100 MG (COLACE) CAP PO SCH ×2 (08:29→22:17)
[2022-08-19] MEDS: MICONAZOLE 2% POWDER (DESENEX AF) 90 GM TOP SCH ×2 (08:30→22:18)
[2022-08-19] MEDS: metroNIDAZOLE 500MG/100ML IVPB 100 ML IV SCH ×2 (09:19→22:17)
[2022-08-19] MEDS: ACETAMINOPHEN 325 MG TABLET PO PRN (15:21)
[2022-08-19] MEDS: IRON SUCROSE 200 MG/10 ML (VENOFER) VIAL IV SCH (15:53)
--- NOTE | 2022-08-19 17:46 | Progress Note ---
Subjective Subjective/Events-last exam Patient states that pain is better controlled. Went to OR yesterday. Tolerating diet. Has not been out of bed much other then to bathroom due to pain Review of Systems General: Fatigue Pulmonary: No Dyspnea, No Cough Cardiovascular: No: Chest Pain, Palpitations Gastrointestinal: No: Nausea, Vomiting, Abdominal Pain Neurological: Weakness Focused Exam Time of Focused Exam: 04:30 Objective Exam Last Set of Vital Signs Vital Signs Date Time Temp Pulse Resp B/P (MAP) Pulse Ox O2 Delivery O2 Flow Rate FiO2 08/19/22 16:00 36.5 85 18 136/78 (97) 97 Nasal Cannula 2.00 08/16/22 03:16 21 Capillary Refill : Less Than 3 SecondsLess Than 3 Seconds I&O Intake and Output 08/19/22 00:00 Intake Total 1282.5 ml Output Total 30 ml Balance 1252.5 ml Intake Oral 820 ml IV Total 462.5 ml Output Urine Total 30 ml # Voids 7 # Bowel Movements 1 General: Alert, Oriented X3, No Acute Distress Lungs: Clear to Auscultation, Normal Air Movement Heart: Regular Rate, No Murmurs Abdomen: Normal Bowel Sounds, Soft, No Tenderness Skin: Other (Right labial incision draining purulent maternal) Results/Procedures Lab Laboratory Tests 08/18/22 20:51: Glucometer 136H 08/19/22 05:07: White Blood Count 10.7, Red Blood Count 3.17L, Hemoglobin 9.5L, Hematocrit 29L, Mean Corpuscular Volume 92, Mean Corpuscular Hemoglobin 30, Mean Corpuscular Hemoglobin Concent 32, Red Cell Distribution Width 13.2, Platelet Count 290, Mean Platelet Volume 11.3, Immature Granulocyte % (Auto) 2, Neutrophils (%) (Auto) 60, Lymphocytes (%) (Auto) 19, Monocytes (%) (Auto) 15H, Eosinophils (%) (Auto) 4, Basophils (%) (Auto) 1, Neutrophils # (Auto) 6.4, Lymphocytes # (Auto) 2.1, Monocytes # (Auto) 1.6H, Eosinophils # (Auto) 0.4H, Basophils # (Auto) 0.1, Immature Granulocyte # (Auto) 0.2H, Sodium Level 139, Potassium Level 3.8, Chloride Level 106, Carbon Dioxide Level 23, Anion Gap 10, Blood Urea Nitrogen 13, Creatinine 0.63, Estimat Glomerular Filtration Rate 114, BUN/Creatinine Ratio 21, Glucose Level 139H, Calcium Level 8.1L, Corrected Calcium 9.3, Magnesium Level 1.7, Total Bilirubin 0.2, Aspartate Amino Transf (AST/SGOT) 25, Alanine Aminotransferase (ALT/SGPT) 29, Alkaline Phosphatase 99, Total Protein 5.3L, Albumin 2.5L 08/19/22 05:42: Glucometer 124H 08/19/22 10:59: Glucometer 126H 08/19/22 15:19: Glucometer 157H 08/19/22 15:30: Glucometer 148H Microbiology 08/13/22 Gram Stain - Final, Resulted 08/13/22 Anaerobic Culture - Final, Resulted Mixed anaerobic angie 08/13/22 Surgical Culture - Final, Resulted Enterococcus faecalis Escherichia coli 08/13/22 Fungal Culture 1 - Preliminary, Resulted 08/13/22 MRSA Screen - Final, Complete MRSA not isolated 08/13/22 Blood Culture - Final, Complete No growth 08/13/22 Urine Culture - Final, Complete Gram Pos Mixed Bacterial Angie Assessment/Plan Assessment/Plan (1) Abscess of right genital labia Status: Acute Assessment & Plan: 08/16: Swelling and redness not much improved, continue IV antibiotics, wound care consulted, will need HH with wound care at D/c 08/17: NPO at midnight, possible repeat I&D tomorrow with Emelina 08/19: OR yesterday reveal tracking abscess it was drained, pain improved, needs to start switching to more PO pain medication and away from IV in prep for discharge (2) DKA (diabetic ketoacidosis) Status: Resolved Assessment & Plan: 08/16: Resolved Qualifiers: Qualified Codes: E11.10 - Type 2 diabetes mellitus with ketoacidosis without coma (3) Diabetes mellitus, insulin dependent (IDDM), uncontrolled Status: Acute Assessment & Plan: 08/16: Uncontrolled, A1c 12.8, discussed the need to get blood sugars more controlled with goal A1c <7.0 for better wound healing SAYDA CHAVEZ MD Aug 19, 2022 17:46
[2022-08-19] MEDS: PANTOPRAZOLE 40 MG (PROTONIX) TAB PO SCH (22:13)
[2022-08-19] MEDS: OLANZapine 5 MG ODT (ZyPREXA ZYDIS) PO SCH (22:13)
[2022-08-19] MEDS: HYDROmorphone 2 MG/ML VIAL (DILAUDID) IV PRN (23:12)
[2022-08-20] VITALS: BP 145/75
[2022-08-20] MEDS: MEROPENEM 500 MG in NS (IVPB) 100 ML IV SCH ×4 (02:32→20:48)
[2022-08-20 03:57] VITALS: BP 131/65
[2022-08-20] MEDS: inSUlin ASPART (NovoLOG) 1 UNIT/0.01 ML (CHARGE PER UNIT) SC SCH ×7 (05:12→20:23)
[2022-08-20] MEDS: ENOXAPARIN 40 MG/0.4 ML (LOVENOX) SYR SC SCH (05:15)
[2022-08-20] MEDS: LEVOTHYROXINE 75 MCG (LEVOTHROID) TABLET PO SCH (05:15)
[2022-08-20] MEDS: MULTIVIT W/MINERALS TAB (THERAGRAN M) PO SCH (05:15)
[2022-08-20 05:42] LABS: BASOPHILS % (AUTO) 0 % (0-10); EOSINOPHILS # (AUTO) 0.3 10^3/uL (0.0-0.3); EOSINOPHILS % (AUTO) 3 % (0-10); HEMATOCRIT 29 % (35-52); HEMOGLOBIN 9.6 g/dL (11.5-16.0); LYMPHOCYTES % (AUTO) 35 % (12-44); MEAN CORPUSCULAR HEMOGLOBIN 31 pg (25-34); MEAN CORPUSCULAR HGB CONC 33 g/dL (32-36); MEAN CORPUSCULAR VOLUME 92 fL (80-99); MEAN PLATELET VOLUME 9.2 fL (9.0-12.2); MONOCYTES # (AUTO) 1.1 10^3/uL (0.0-1.0); MONOCYTES % (AUTO) 12 % (0-12); NEUTROPHILS # (AUTO) 4.2 10^3/uL (1.8-7.8); NEUTROPHILS % (AUTO) 48 % (42-75); PLATELET COUNT 359 10^3/uL (130-400); WHITE BLOOD COUNT 8.8 10^3/uL (4.3-11.0)
[2022-08-20 05:56] LABS: ALBUMIN 2.5 GM/DL (3.2-4.5); POTASSIUM 3.5 MMOL/L (3.6-5.0)
[2022-08-20 05:57] LABS: CALCIUM 8.5 MG/DL (8.5-10.1)
[2022-08-20 05:58] LABS: TOTAL PROTEIN 5.3 GM/DL (6.4-8.2)
[2022-08-20 06:00] LABS: BILIRUBIN,TOTAL 0.2 MG/DL (0.1-1.0)
[2022-08-20 06:02] LABS: CREATININE SERUM 0.66 MG/DL (0.60-1.30)
[2022-08-20 06:05] LABS: MAGNESIUM 1.8 MG/DL (1.6-2.4)
--- NOTE | 2022-08-20 07:25 | Progress Note - Surgery ---
TINA CABELLO 08/20/22 0725: Subjective Date Seen by a Provider: Aug 20, 2022 Time Seen by a Provider: 07:00 Subjective/Events-last exam 42 F s/p repeat rt labial I&D is resting comfortably in chair reports improvement of pain rating 5/10. Per, RN Pt has feminine pad covering wound with scant drainage decreased erythema and induration. Pt clams she has had 4 loose BMs this morning with no associated abd pain. Denies fever, chills, chest pain, sod, or N/V. Pt expresses concerns to take care of wound outside of hospital. Met with wound care yesterday, but has already forgotten the information. Review of Systems General: No Chills, No Night Sweats HEENT: No Head Aches, No Visual Changes Pulmonary: No Dyspnea, No Cough Cardiovascular: No: Chest Pain, Palpitations Gastrointestinal: Diarrhea; No: Nausea, Vomiting, Abdominal Pain Genitourinary: No Dysuria, No Frequency Musculoskeletal: No: arm pain, leg pain Neurological: No: Weakness, Numbness Focused Exam Time of Focused Exam: 04:30 Objective Exam Vital Signs Date Time Temp Pulse Resp B/P (MAP) Pulse Ox O2 Delivery O2 Flow Rate FiO2 08/20/22 03:57 36.8 97 16 131/65 (87) 96 Nasal Cannula 2.50 08/20/22 00:00 36.8 87 16 145/75 (98) 97 Nasal Cannula 2.00 08/19/22 23:15 36.5 85 97 28 08/19/22 20:00 Nasal Cannula 2.00 08/19/22 19:20 36.5 89 20 165/78 (107) 96 Room Air 08/19/22 16:00 36.5 85 18 136/78 (97) 97 Nasal Cannula 2.00 08/19/22 11:39 36.4 85 18 118/75 (89) 93 Room Air 08/19/22 08:00 Room Air 08/19/22 07:57 36.4 88 18 121/79 (93) 92 Room Air I & O 08/20/22 07:00 Intake Total 1350 ml Balance 1350 ml Capillary Refill : Less Than 3 SecondsLess Than 3 Seconds General Appearance: No Apparent Distress, Obese HEENT: Moist Mucous Membranes; No Pale Conjunctivae (L), No Pale Conjunctivae (R), No Photophobia Neck: Normal Inspection, Non Tender, Supple Respiratory: Chest Non Tender, Lungs Clear, Normal Breath Sounds, No Accessory Muscle Use, No Respiratory Distress Cardiovascular: Regular Rate, Rhythm, No Murmur, Normal Peripheral Pulses Peripheral Pulses: 3+ Dorsalis Pedis (R), 3+ Left Dors-Pedis (L), 3+ Radial Pulses (R), 3+ Radial Pulses (L) Gastrointestinal: normal bowel sounds, non tender, soft, no organomegaly, no pulsatile mass Extremity: Normal Capillary Refill, Normal Inspection, No Calf Tenderness Neurologic/Psychiatric: Alert, Oriented x3, Normal Mood/Affect Skin: Normal Color, Warm/Dry, Other (per rn, gauze padding covering wound with scant drainage, improved errythema and induration compared to previous day. ) Lymphatic: No Adenopathy Results Lab Laboratory Tests 08/19/22 10:59: Glucometer 126H 08/19/22 15:19: Glucometer 157H 08/19/22 15:30: Glucometer 148H 08/19/22 20:15: Glucometer 152H 08/20/22 05:05: Glucometer 76 08/20/22 05:30: White Blood Count 8.8, Red Blood Count 3.15L, Hemoglobin 9.6L, Hematocrit 29L, Mean Corpuscular Volume 92, Mean Corpuscular Hemoglobin 31, Mean Corpuscular Hemoglobin Concent 33, Red Cell Distribution Width 12.9, Platelet Count 359, Mean Platelet Volume 9.2, Immature Granulocyte % (Auto) 2, Neutrophils (%) (Auto) 48, Lymphocytes (%) (Auto) 35, Monocytes (%) (Auto) 12, Eosinophils (%) (Auto) 3, Basophils (%) (Auto) 0, Neutrophils # (Auto) 4.2, Lymphocytes # (Auto) 3.0, Monocytes # (Auto) 1.1H, Eosinophils # (Auto) 0.3, Basophils # (Auto) 0.0, Immature Granulocyte # (Auto) 0.2H, Sodium Level 144, Potassium Level 3.5L, Chloride Level 109H, Carbon Dioxide Level 27, Anion Gap 8, Blood Urea Nitrogen 11, Creatinine 0.66, Estimat Glomerular Filtration Rate 113, BUN/Creatinine Ratio 17, Glucose Level 70, Calcium Level 8.5, Corrected Calcium 9.7, Magnesium Level 1.8, Total Bilirubin 0.2, Aspartate Amino Transf (AST/SGOT) 20, Alanine Aminotransferase (ALT/SGPT) 24, Alkaline Phosphatase 92, Total Protein 5.3L, Albumin 2.5L 08/20/22 06:02: Glucometer 101 Microbiology 08/13/22 Gram Stain - Final, Resulted 08/13/22 Anaerobic Culture - Final, Resulted Mixed anaerobic angie 08/13/22 Surgical Culture - Final, Resulted Enterococcus faecalis Escherichia coli 08/13/22 Fungal Culture 1 - Preliminary, Resulted 08/13/22 MRSA Screen - Final, Complete MRSA not isolated 08/13/22 Blood Culture - Final, Complete No growth 08/13/22 Urine Culture - Final, Complete Gram Pos Mixed Bacterial Angie Assessment/Plan Assessment/Plan Assessment/Plan s/p repeat rt labial abscess I&D new onset diarrhea continue IV abx therapy continue IV fluids continue on diabetic diet pain control PRN dressing changes bid start loperamide PRN consult wound care on take-home instructions for pt on proper management of wound ESAU TARANGO DO 08/20/22 2755: Subjective Subjective/Events-last exam Patient feeling better, pain less and better under control. Scant drainage. Packing falling out. Denies n/v fever sweats chills shortness of breath or chest pain. Objective Exam General Appearance: No Apparent Distress, Anxious, Obese HEENT: PERRL/EOMI, Normal ENT Inspection Neck: Normal Inspection, Non Tender, Supple Respiratory: Chest Non Tender, No Accessory Muscle Use Cardiovascular: Regular Rate, Rhythm Gastrointestinal: non tender, soft Extremity: Normal Inspection, No Calf Tenderness Neurologic/Psychiatric: Alert, Oriented x3, Normal Mood/Affect Skin: Normal Color, Warm/Dry, Other (right wound open, no purulent drainage at this time, less induration) Lymphatic: No Adenopathy Assessment/Plan Assessment/Plan Assessment/Plan s/p i and d right labial abscess dka open wound continue daily wound care, we disccussed wound vac and wound care her and family have concerns about ability to do at home. i think she would greatly benefit from wound vac will place today and arrange for home wound vac home soon. Supervisory-Addendum Brief Verification & Attestation Participated in pt care: history, MDM, physical Personally performed: exam, history, MDM, supervision of care Care discussed with: Medical Student Procedures: n/a Results interpretation: Verified all documentation Verification and Attestation of Medical Student E/M Service A medical student performed and documented this service in my presence. I reviewed and verified all information documented by the medical student and made modifications to such information, when appropriate. I personally performed the physical exam and medical decision making. Esau Tarango, Aug 20, 2022,16:55 TINA CABELLO Aug 20, 2022 07:25 ESAU TARANGO DO Aug 20, 2022 16:55
[2022-08-20 08:00] VITALS: BP 136/72
[2022-08-20] MEDS: SENNOSIDES 8.6 MG (SENOKOT) TAB PO SCH ×2 (08:36→20:36)
[2022-08-20] MEDS: DOCUSATE SODIUM 100 MG (COLACE) CAP PO SCH ×2 (08:36→20:36)
[2022-08-20] MEDS: DIVALPROEX EXT RELEASE 250 MG (DEPAKOTE ER) TAB PO SCH ×2 (08:43→20:47)
[2022-08-20] MEDS: LACTOBACILLUS ACIDOPHILUS (PROBIOTIC) CAPSULE PO SCH ×3 (08:43→17:26)
[2022-08-20] MEDS: metroNIDAZOLE 500MG/100ML IVPB 100 ML IV SCH (08:43)
[2022-08-20] MEDS: morphine IMMEDIATE RELEASE 15 MG TABLET PO PRN ×2 (08:43→21:08)
[2022-08-20] MEDS: FLUoxetine HCL 20 MG (PROzac) CAP PO SCH (08:43)
[2022-08-20] MEDS: fluCOnazole (DIFLUCAN) 100 MG TAB PO SCH (08:43)
[2022-08-20] MEDS: MICONAZOLE 2% POWDER (DESENEX AF) 90 GM TOP SCH (08:44)
[2022-08-20] MEDS: HYDROmorphone 2 MG/ML VIAL (DILAUDID) IV PRN (11:48)
[2022-08-20 12:00] VITALS: BP 158/89
--- NOTE | 2022-08-20 12:11 | Wound Care Assessment ---
Wound Care Assessment Date Seen by Provider: Aug 20, 2022 Time Seen by Provider: 12:05 Chief Complaint Labial abscess HPI This pleasant 42 year old patient has a h/o recurrent Bartholin's cyst/abscess in the setting of poorly controlled DM2. She was admitted with DKA and R. labial abscess over the weekend. Dr. Tarango did take her for I&D twice during this hospitalization. She has been on broad spectrum antibiotics and remains on Meropenem, Flagyl and diflucan. Erythema and induration is greatly improved today from my initial evaluation. Initial CT without large abscess or evidence of necrotizing fasciitis. Follow up sono similarly reassuring. WBC improved as is FSBS (now off insulin drip). Sharona admits to poor diabetic control and lack of compliance in medical care. She is also a smoker (1/2-1ppd) but has voiced that she plans to remain off cigarettes when she leave hospital. We have discussed these risk factors for recurrent infection and for necrotizing infection. She verbalized understanding. Glycemic control will be important in speeding her recovery (I do think this is in large part the cause of delayed progress with healing). She does have noted PEM as well (glucerna ordered). Considerable moisture in inguinal region (will d/c miconazole powder and switch to nystatin cream today). We do plan to transition to wound vac today. I did encourage Sharona to get up and move about a bit this weekend (as should would at home) to see if she will do well with vac in this sensitive location. Plans for HH on discharge. I do think follow up wound care would be beneficial as well due to her numerous risk factors. Past Medical History: Admits Diabetes Type II Smoking Status: Current Everyday Smoker Recreational Drug Use: Yes (Marijuana) Alcohol Use: Regular Use Exam Vital Signs Date Time Temp Pulse Resp B/P (MAP) Pulse Ox O2 Delivery O2 Flow Rate FiO2 08/20/22 08:06 Nasal Cannula 08/20/22 08:00 36.0 89 16 136/72 (93) 95 08/20/22 03:57 2.50 08/19/22 23:15 28 Capillary Refill : Less Than 3 SecondsLess Than 3 Seconds General Appearance: no apparent distress, obese HEENT: other (normal hearing) Neck: full range of motion Cardiovascular: no edema Respiratory: no respiratory distress, no accessory muscle use Extremities: normal range of motion, no pedal edema Neurologic/Psychiatric: alert, normal mood/affect, oriented x 3 Skin: warm/dry Skin Problem Location: other (groin) Skin Character: abscess, drainage, erythema, swelling, tenderness Wound assessment: 10x1.0x5.0cm. The epithelialization is none. There is no tunneling or undermining. Granulation is none. Drainage is large and purulent. Necrotic is large and slough. The margins are flat and there is erythema and edema in periwound with candidal skin infection in groin. Results Laboratory Tests 08/19/22 15:19: Glucometer 157H 08/19/22 15:30: Glucometer 148H 08/19/22 20:15: Glucometer 152H 08/20/22 05:05: Glucometer 76 08/20/22 05:30: White Blood Count 8.8, Red Blood Count 3.15L, Hemoglobin 9.6L, Hematocrit 29L, Mean Corpuscular Volume 92, Mean Corpuscular Hemoglobin 31, Mean Corpuscular Hemoglobin Concent 33, Red Cell Distribution Width 12.9, Platelet Count 359, Mean Platelet Volume 9.2, Immature Granulocyte % (Auto) 2, Neutrophils (%) (Auto) 48, Lymphocytes (%) (Auto) 35, Monocytes (%) (Auto) 12, Eosinophils (%) (Auto) 3, Basophils (%) (Auto) 0, Neutrophils # (Auto) 4.2, Lymphocytes # (Auto) 3.0, Monocytes # (Auto) 1.1H, Eosinophils # (Auto) 0.3, Basophils # (Auto) 0.0, Immature Granulocyte # (Auto) 0.2H, Sodium Level 144, Potassium Level 3.5L, Chloride Level 109H, Carbon Dioxide Level 27, Anion Gap 8, Blood Urea Nitrogen 11, Creatinine 0.66, Estimat Glomerular Filtration Rate 113, BUN/Creatinine Ratio 17, Glucose Level 70, Calcium Level 8.5, Corrected Calcium 9.7, Magnesium Level 1.8, Total Bilirubin 0.2, Aspartate Amino Transf (AST/SGOT) 20, Alanine Aminotransferase (ALT/SGPT) 24, Alkaline Phosphatase 92, Total Protein 5.3L, Albumin 2.5L 08/20/22 06:02: Glucometer 101 08/20/22 10:56: Glucometer 183H Microbiology 08/13/22 Gram Stain - Final, Resulted 08/13/22 Anaerobic Culture - Final, Resulted Mixed anaerobic angie 08/13/22 Surgical Culture - Final, Resulted Enterococcus faecalis Escherichia coli 08/13/22 Fungal Culture 1 - Preliminary, Resulted 08/13/22 MRSA Screen - Final, Complete MRSA not isolated 08/13/22 Blood Culture - Final, Complete No growth 08/13/22 Urine Culture - Final, Complete Gram Pos Mixed Bacterial Angie Assessment/Plan/Dx Assessment: 1. R. Labial abscess 2. Cellulitis of perineum/mons pubis 3. DM2 with DKA 4. Tobaccoism 5. Obesity 6. PEM 7. Anemia 8. h/o medical noncompliance Plan: 1. Agree with antibiotics per primary team. Agree to trial of wound vac. Home vac applied for with insurance and pending. Patient instructed on activity this weekend (in light of location of abscess cavity). Home health planned as outpatient. Follow up in our office indicated 2. Antibiotics per primary and surgery. Will change to nystatin cream from miconazole powder. 3. Agree with primary team in need for tight glycemic control. Conversation with patient today about necessity for compliance as outpatient in current wound healing and prevention of further similar infections 4. Smoking cessation strongly advised. Patient verbalizes understanding. 5. Weight loss advisable. Defer to primary physician 6. Glucerna tid 7. Defer to primary team 8. Continued reinforcement will likely be necessary. HOWARD JOINER MD Aug 20, 2022 12:11
[2022-08-20] MEDS: NYSTATIN CREAM (MYCOSTATIN) 30 GM TUBE TP SCH ×2 (13:43→20:48)
--- NOTE | 2022-08-20 13:52 | Progress Note - Hospitalist ---
MARTHA CARRILLO 08/20/22 1352: Subjective HPI/CC On Admission Date Seen by Provider: Aug 20, 2022 Time Seen by Provider: 11:20 Subjective/Events-last exam Pt resting comfortably in NAD. She is tolerating diabetic diet. Notes some diarrhea, with no blood. Her labial pain is 6/[address]. She continues to be on Meropenem, flagyl and diflucan. Wound care consulted with plan to d/c miconazole powder, switch to nystatin cream, and transition to wound vac today. Her HbA1C is 12.8 Denies fever, chills, abdominal pain, N/V, shortness of breath or chest pain. Review of Systems General: No Chills, No Night Sweats, No Appetite HEENT: No Head Aches, No Visual Changes Pulmonary: No Dyspnea, No Cough Cardiovascular: No: Chest Pain, Palpitations, Edema Gastrointestinal: Diarrhea; No: Nausea, Vomiting, Abdominal Pain Genitourinary: No Dysuria, No Incontinence; Other (right labia s/p x 2 I&D) Musculoskeletal: No: leg pain Neurological: No: Weakness, Numbness Focused Exam Time of Focused Exam: 04:30 Objective Exam Vital Signs Vital Signs Date Time Temp Pulse Resp B/P (MAP) Pulse Ox O2 Delivery O2 Flow Rate FiO2 08/20/22 12:00 36.6 91 20 158/89 (112) Room Air 08/20/22 08:00 95 08/20/22 03:57 2.50 08/19/22 23:15 28 Capillary Refill : Less Than 3 SecondsLess Than 3 Seconds General Appearance: No Apparent Distress, WD/WN, Obese HEENT: PERRL/EOMI, Moist Mucous Membranes Neck: Non Tender, Supple Respiratory: Lungs Clear, Normal Breath Sounds, No Accessory Muscle Use, No Respiratory Distress Cardiovascular: Regular Rate, Rhythm, No Edema, No Gallop, No Murmur, Normal Peripheral Pulses Gastrointestinal: Normal Bowel Sounds, Non Tender, Soft Genital/Rectal: Other (large dressing in place of labia ) Back: No CVA Tenderness Extremity: Normal Capillary Refill, Non Tender, No Calf Tenderness; No Calf Tenderness Neurologic/Psychiatric: Alert, Oriented x3, Normal Mood/Affect Skin: Normal Color, Warm/Dry Lymphatic: No Adenopathy Results/Procedures Lab Laboratory Tests 10/28/22 05:30 Patient resulted labs reviewed. Assessment/Plan Assessment and Plan Assess & Plan/Chief Complaint Assessment: DKA - resolved Leukocytosis - resolved, WBC 8.8 today Right labial abscess - underwent x [address] Tarango - wound care consulted with recommendations appreciated Insulin-dependent diabetes mellitus - uncontrolled - admits to not taking insulin as rx - HbA1C is 12.8, goal <7 Electrolyte imbalance Plan: IVF and electrolyte replacement (potassium and magnesium) IV abx (Meropenem, flagyl, fluconazole) Sliding scale insulin (novalog and levemir) Wound care recommended d/c miconazole powder, switch to nystatin cream, and transition to wound vac today Pain management and supportive care MARYLN YATES DO 08/21/22 0530: Subjective Subjective/Events-last exam Patient doing well Wound VAC replaced Patient will stay until Tuesday Supervisory-Addendum Brief Verification & Attestation Participated in pt care: history, MDM, physical Personally performed: exam, history, MDM, supervision of care Care discussed with: Medical Student Procedures: n/a Results interpretation: Verified all documentation Verification and Attestation of Medical Student E/M Service A medical student performed and documented this service in my presence. I reviewed and verified all information documented by the medical student and made modifications to such information, when appropriate. I personally performed the physical exam and medical decision making. Marlyn Yates, Aug 21, 2022,05:29 MARTHA CARRILLO Aug 20, 2022 13:52 MARLYN YATES DO Aug 21, 2022 05:30
[2022-08-20 16:13] VITALS: BP 127/78
[2022-08-20] MEDS: LORazepam 0.5 MG (ATIVAN) TABLET PO PRN (17:33)
[2022-08-20 19:27] VITALS: BP 135/81
[2022-08-20] MEDS: OLANZapine 5 MG ODT (ZyPREXA ZYDIS) PO SCH (20:47)
[2022-08-20] MEDS: PANTOPRAZOLE 40 MG (PROTONIX) TAB PO SCH (20:47)
[2022-08-21 00:20] VITALS: BP 141/85
[2022-08-21] MEDS: MEROPENEM 500 MG in NS (IVPB) 100 ML IV SCH ×4 (02:55→21:09)
[2022-08-21 04:00] VITALS: BP 125/78
[2022-08-21] MEDS: LEVOTHYROXINE 75 MCG (LEVOTHROID) TABLET PO SCH (05:44)
[2022-08-21] MEDS: MULTIVIT W/MINERALS TAB (THERAGRAN M) PO SCH (05:44)
[2022-08-21] MEDS: ENOXAPARIN 40 MG/0.4 ML (LOVENOX) SYR SC SCH (05:44)
[2022-08-21] MEDS: inSUlin ASPART (NovoLOG) 1 UNIT/0.01 ML (CHARGE PER UNIT) SC SCH ×7 (05:44→21:00)
[2022-08-21 06:33] LABS: BASOPHILS # (AUTO) 0.1 10^3/uL (0.0-0.1); BASOPHILS % (AUTO) 1 % (0-10); EOSINOPHILS # (AUTO) 0.4 10^3/uL (0.0-0.3); EOSINOPHILS % (AUTO) 4 % (0-10); HEMATOCRIT 28 % (35-52); HEMOGLOBIN 8.8 g/dL (11.5-16.0); LYMPHOCYTES # (AUTO) 2.9 10^3/uL (1.0-4.0); LYMPHOCYTES % (AUTO) 34 % (12-44); MEAN CORPUSCULAR HEMOGLOBIN 30 pg (25-34); MEAN CORPUSCULAR HGB CONC 32 g/dL (32-36); MEAN CORPUSCULAR VOLUME 94 fL (80-99); MEAN PLATELET VOLUME 9.4 fL (9.0-12.2); MONOCYTES # (AUTO) 0.9 10^3/uL (0.0-1.0); MONOCYTES % (AUTO) 10 % (0-12); NEUTROPHILS % (AUTO) 46 % (42-75); PLATELET COUNT 384 10^3/uL (130-400); WHITE BLOOD COUNT 8.6 10^3/uL (4.3-11.0)
[2022-08-21 06:49] LABS: ALBUMIN 2.5 GM/DL (3.2-4.5); CALCIUM 8.4 MG/DL (8.5-10.1); POTASSIUM 3.8 MMOL/L (3.6-5.0); TOTAL PROTEIN 5.4 GM/DL (6.4-8.2)
[2022-08-21 07:03] LABS: BILIRUBIN,TOTAL 0.1 MG/DL (0.1-1.0); CREATININE SERUM 0.69 MG/DL (0.60-1.30); MAGNESIUM 1.8 MG/DL (1.6-2.4)
[2022-08-21 07:29] VITALS: BP 119/77
--- NOTE | 2022-08-21 08:02 | Progress Note - Hospitalist ---
Subjective HPI/CC On Admission Date Seen by Provider: Aug 21, 2022 Time Seen by Provider: 11:00 Subjective/Events-last exam Patient doing much better Sleeping Wound VAC is leaking so we will change it out today Blood sugars much improved Labs reviewed Review of Systems General: Fatigue, Malaise Focused Exam Time of Focused Exam: 04:30 Objective Exam Vital Signs Vital Signs Date Time Temp Pulse Resp B/P (MAP) Pulse Ox O2 Delivery O2 Flow Rate FiO2 08/21/22 11:48 36.6 85 20 115/74 (88) 94 Room Air 08/21/22 11:18 2.00 08/19/22 23:15 28 Capillary Refill : Less Than 3 SecondsLess Than 3 Seconds General Appearance: No Apparent Distress, WD/WN Respiratory: Lungs Clear Cardiovascular: Regular Rate, Rhythm Results/Procedures Lab Laboratory Tests 08/21/22 06:24 Patient resulted labs reviewed. Assessment/Plan Assessment and Plan Assess & Plan/Chief Complaint Assessment: DKA now resolved Leukocytosis Right labial abscess status post incision and drainage x 2 now with wound VAC Insulin-dependent diabetes mellitus - uncontrolled Electrolyte imbalance Plan: Insulin adjusted IV antibiotics Appreciate WILI Blair DO Aug 21, 2022 08:02
[2022-08-21] MEDS: DIVALPROEX EXT RELEASE 250 MG (DEPAKOTE ER) TAB PO SCH ×2 (09:24→21:10)
[2022-08-21] MEDS: LACTOBACILLUS ACIDOPHILUS (PROBIOTIC) CAPSULE PO SCH ×3 (09:24→17:37)
[2022-08-21] MEDS: FLUoxetine HCL 20 MG (PROzac) CAP PO SCH (09:24)
[2022-08-21] MEDS: SENNOSIDES 8.6 MG (SENOKOT) TAB PO SCH ×2 (09:24→21:10)
[2022-08-21] MEDS: DOCUSATE SODIUM 100 MG (COLACE) CAP PO SCH ×2 (09:24→21:10)
[2022-08-21] MEDS: fluCOnazole (DIFLUCAN) 100 MG TAB PO SCH (09:24)
[2022-08-21] MEDS: NYSTATIN CREAM (MYCOSTATIN) 30 GM TUBE TP SCH ×3 (09:26→21:12)
--- NOTE | 2022-08-21 09:30 | Progress Note - Surgery ---
PEREZ VEE 08/21/22 0930: Subjective Date Seen by a Provider: Aug 21, 2022 Subjective/Events-last exam S/P labial I&D x2. Pt is sitting in chair comfortably. Reports current 5/10 pain in labial region. She complains of stinging after urination worse on her right labia. She denies any hematuria. Her last BM was diarrhea yesterday AM. She denies any N/V and is tolerating diabetic diet well. She is able to ambulate halls without issue. She denies any chest pain but does report some shortness of breath related to panic attacks she has experienced in the hospital. She denies and fever or chills overnight and says her pain in the labia is improved after the second I&D on 08/19. Wound care saw her yesterday and began wound vac, pt reports no issue with this. Review of Systems General: No Chills, No Night Sweats HEENT: No Head Aches, No Visual Changes Pulmonary: No Dyspnea, No Cough; Other (pt reports feeling short of breath in episodes of panic) Cardiovascular: No: Chest Pain, Lt Headedness Gastrointestinal: No: Nausea, Vomiting, Abdominal Pain Genitourinary: Dysuria (stinging due to labial wound), Hematuria Neurological: No: Confusion Focused Exam Time of Focused Exam: 04:30 Objective Exam Vital Signs Date Time Temp Pulse Resp B/P (MAP) Pulse Ox O2 Delivery O2 Flow Rate FiO2 08/21/22 07:29 36.1 86 18 119/77 (91) 93 Room Air 2.00 2.00 08/21/22 04:00 36.7 86 16 125/78 (94) 93 Room Air 08/21/22 00:20 36.7 93 16 141/85 (103) 95 Room Air 08/20/22 19:27 36.8 88 16 135/81 (99) 96 Nasal Cannula 2.00 08/20/22 19:10 Room Air 08/20/22 18:58 96 Nasal Cannula 2.00 08/20/22 16:13 36.4 84 18 127/78 (94) 92 Room Air 08/20/22 12:00 36.6 91 20 158/89 (112) Room Air I & O 08/21/22 07:00 Intake Total 2740 ml Balance 2740 ml Capillary Refill : Less Than 3 SecondsLess Than 3 Seconds General Appearance: No Apparent Distress, Anxious, Obese HEENT: PERRL/EOMI, Moist Mucous Membranes; No Scleral Icterus (L), No Scleral Icterus (R) Neck: Non Tender, Supple Respiratory: Chest Non Tender, No Accessory Muscle Use Cardiovascular: Regular Rate, Rhythm, Normal Peripheral Pulses Peripheral Pulses: 2+ Radial Pulses (R), 2+ Radial Pulses (L) Gastrointestinal: non tender, soft Extremity: No Calf Tenderness, No Pedal Edema Neurologic/Psychiatric: Alert, Oriented x3 Skin: Normal Color, Warm/Dry, Other (right wound open, no purulent drainage at this time, wound vac currently functioning, mild erythema on right) Lymphatic: No Adenopathy Results Lab Laboratory Tests 08/20/22 10:56: Glucometer 183H 08/20/22 16:15: Glucometer 135H 08/20/22 20:15: Glucometer 178H 08/21/22 05:33: Glucometer 131H 08/21/22 06:24: White Blood Count 8.6, Red Blood Count 2.96L, Hemoglobin 8.8L, Hematocrit 28L, Mean Corpuscular Volume 94, Mean Corpuscular Hemoglobin 30, Mean Corpuscular Hemoglobin Concent 32, Red Cell Distribution Width 13.0, Platelet Count 384, Mean Platelet Volume 9.4, Immature Granulocyte % (Auto) 4, Neutrophils (%) (Auto) 46, Lymphocytes (%) (Auto) 34, Monocytes (%) (Auto) 10, Eosinophils (%) (Auto) 4, Basophils (%) (Auto) 1, Neutrophils # (Auto) 4.0, Lymphocytes # (Auto) 2.9, Monocytes # (Auto) 0.9, Eosinophils # (Auto) 0.4H, Basophils # (Auto) 0.1, Immature Granulocyte # (Auto) 0.4H, Sodium Level 140, Potassium Level 3.8, Chloride Level 107, Carbon Dioxide Level 24, Anion Gap 9, Blood Urea Nitrogen 14, Creatinine 0.69, Estimat Glomerular Filtration Rate 112, BUN/Creatinine Ratio 20, Glucose Level 126H, Calcium Level 8.4L, Corrected Calcium 9.6, Magnesium Level 1.8, Total Bilirubin 0.1, Aspartate Amino Transf (AST/SGOT) 23, Alanine Aminotransferase (ALT/SGPT) 23, Alkaline Phosphatase 84, Total Protein 5.4L, Albumin 2.5L Microbiology 08/19/22 Gram Stain - Final, Resulted 08/19/22 Wound Culture - Preliminary, Resulted Enterococcus faecalis 08/13/22 MRSA Screen - Final, Complete MRSA not isolated 08/13/22 Blood Culture - Final, Complete No growth 08/13/22 Urine Culture - Final, Complete Gram Pos Mixed Bacterial Samantha Assessment/Plan Assessment/Plan Assessment/Plan s/p i and d right labial abscess dka- resolved wound vac Continue IV abx and topical cream. Continue IV fluids. Continue pain medication prn. DKA resolved, last glucose 126, continue SSI .Wound vac currently in use. Appreciate wound care recs for take home care. DELONTE WHITNEY DO 08/22/22 1425: Subjective Time Seen by a Provider: 11:51 Subjective/Events-last exam Pt seen and examined, pain mostly controlled. The wound VAC alarm is going off. Review of Systems General: No Chills, No Night Sweats HEENT: No Head Aches, No Visual Changes Pulmonary: No Dyspnea, No Cough Gastrointestinal: No: Nausea, Vomiting, Abdominal Pain Genitourinary: Dysuria (stinging due to labial wound), Hematuria Objective Exam General Appearance: No Apparent Distress, Anxious, Obese HEENT: Moist Mucous Membranes Respiratory: Chest Non Tender, Lungs Clear, Normal Breath Sounds, No Accessory Muscle Use Cardiovascular: Regular Rate, Rhythm, Normal Peripheral Pulses Gastrointestinal: non tender, soft Skin: Other (Exam done with nurse in the room; right labial wound open with VAC, mild erythema on right) Assessment/Plan Assessment/Plan Assessment/Plan s/p i and d right labial abscess dka- resolved wound vac Continue IV abx and topical cream. Continue IV fluids. Continue pain medication prn. DKA resolved, last glucose 126, continue SSI .Wound vac currently in use. Appreciate wound care recs for take home care. Supervisory-Addendum Brief Verification & Attestation Participated in pt care: history, MDM, physical Personally performed: exam, history, MDM, supervision of care Care discussed with: Medical Student Procedures: n/a Verification and Attestation of Medical Student E/M Service A medical student performed and documented this service. I then reviewed and verified all information documented by the medical student and made modifications to such information, when appropriate. I personally performed a physical exam, medical decision making and then discussed any differences between the notes and made revisions as necessary to create one note. Delonte Whitney , 08/22/22 , 14:25 PEREZ VEE Aug 21, 2022 09:30 DELONTE WHITNEY DO Aug 22, 2022 14:25
[2022-08-21 11:48] VITALS: BP 115/74
[2022-08-21 16:00] VITALS: BP 142/83
[2022-08-21] MEDS: IRON SUCROSE 200 MG/10 ML (VENOFER) VIAL IV SCH (16:18)
[2022-08-21 20:29] VITALS: BP 154/85
[2022-08-21] MEDS: PANTOPRAZOLE 40 MG (PROTONIX) TAB PO SCH (21:10)
[2022-08-21] MEDS: OLANZapine 5 MG ODT (ZyPREXA ZYDIS) PO SCH (21:10)
[2022-08-21] MEDS: LORazepam 0.5 MG (ATIVAN) TABLET PO PRN (22:43)
[2022-08-22] VITALS (8 sets, daily range): BP systolic 131–170; BP diastolic 64–91
[2022-08-22] MEDS: MEROPENEM 500 MG in NS (IVPB) 100 ML IV SCH ×4 (02:56→20:26)
[2022-08-22] MEDS: LEVOTHYROXINE 75 MCG (LEVOTHROID) TABLET PO SCH (05:32)
[2022-08-22] MEDS: MULTIVIT W/MINERALS TAB (THERAGRAN M) PO SCH (05:32)
[2022-08-22] MEDS: ENOXAPARIN 40 MG/0.4 ML (LOVENOX) SYR SC SCH (05:32)
[2022-08-22] MEDS: inSUlin ASPART (NovoLOG) 1 UNIT/0.01 ML (CHARGE PER UNIT) SC SCH ×7 (05:48→20:34)
--- NOTE | 2022-08-22 06:16 | Progress Note - Hospitalist ---
Subjective HPI/CC On Admission Date Seen by Provider: Aug 22, 2022 Time Seen by Provider: 12:00 Subjective/Events-last exam Patient doing well Pain controlled Labs reviewed Blood sugars good Sleeps most of the time Focused Exam Time of Focused Exam: 04:30 Objective Exam Vital Signs Vital Signs Date Time Temp Pulse Resp B/P (MAP) Pulse Ox O2 Delivery O2 Flow Rate FiO2 08/22/22 12:00 36.4 86 23 137/68 (91) Room Air 08/22/22 08:46 93 21 08/22/22 08:44 0.00 Capillary Refill : Less Than 3 SecondsLess Than 3 Seconds General Appearance: No Apparent Distress, WD/WN, Chronically ill Results/Procedures Lab Laboratory Tests 08/22/22 05:46 Patient resulted labs reviewed. Assessment/Plan Assessment and Plan Assess & Plan/Chief Complaint Assessment: DKA now resolved Leukocytosis Right labial abscess status post incision and drainage x 2 now with wound VAC Insulin-dependent diabetes mellitus - uncontrolled Electrolyte imbalance Plan: Insulin adjusted IV antibiotics Appreciate WILI Blair DO Aug 22, 2022 06:16
[2022-08-22 06:24] LABS: ALBUMIN 2.7 GM/DL (3.2-4.5); POTASSIUM 5.5 MMOL/L (3.6-5.0)
[2022-08-22 06:25] LABS: CALCIUM 7.3 MG/DL (8.5-10.1)
[2022-08-22 06:28] LABS: BILIRUBIN,TOTAL 0.1 MG/DL (0.1-1.0)
[2022-08-22 06:30] LABS: CREATININE SERUM 0.7 MG/DL (0.60-1.30)
[2022-08-22 06:33] LABS: MAGNESIUM 1.8 MG/DL (1.6-2.4)
[2022-08-22 06:44] LABS: BASOPHILS # (AUTO) 0.1 10^3/uL (0.0-0.1); BASOPHILS % (AUTO) 1 % (0-10); EOSINOPHILS # (AUTO) 0.3 10^3/uL (0.0-0.3); EOSINOPHILS % (AUTO) 4 % (0-10); HEMATOCRIT 30 % (35-52); HEMOGLOBIN 9.8 g/dL (11.5-16.0); LYMPHOCYTES # (AUTO) 2.7 10^3/uL (1.0-4.0); LYMPHOCYTES % (AUTO) 31 % (12-44); MEAN CORPUSCULAR HEMOGLOBIN 30 pg (25-34); MEAN CORPUSCULAR HGB CONC 33 g/dL (32-36); MEAN CORPUSCULAR VOLUME 92 fL (80-99); MEAN PLATELET VOLUME 10.7 fL (9.0-12.2); MONOCYTES # (AUTO) 0.8 10^3/uL (0.0-1.0); MONOCYTES % (AUTO) 9 % (0-12); NEUTROPHILS # (AUTO) 4.4 10^3/uL (1.8-7.8); NEUTROPHILS % (AUTO) 50 % (42-75); PLATELET COUNT 317 10^3/uL (130-400); WHITE BLOOD COUNT 8.7 10^3/uL (4.3-11.0)
[2022-08-22] MEDS: FLUoxetine HCL 20 MG (PROzac) CAP PO SCH (08:49)
[2022-08-22] MEDS: DIVALPROEX EXT RELEASE 250 MG (DEPAKOTE ER) TAB PO SCH ×2 (08:49→20:26)
[2022-08-22] MEDS: DOCUSATE SODIUM 100 MG (COLACE) CAP PO SCH ×2 (08:49→20:26)
[2022-08-22] MEDS: LACTOBACILLUS ACIDOPHILUS (PROBIOTIC) CAPSULE PO SCH ×3 (08:49→17:17)
[2022-08-22] MEDS: fluCOnazole (DIFLUCAN) 100 MG TAB PO SCH (08:49)
[2022-08-22] MEDS: SENNOSIDES 8.6 MG (SENOKOT) TAB PO SCH ×2 (08:49→20:26)
[2022-08-22] MEDS: NYSTATIN CREAM (MYCOSTATIN) 30 GM TUBE TP SCH ×3 (08:50→20:35)
--- NOTE | 2022-08-22 10:28 | Progress Note - Surgery ---
PEREZ VEE 08/22/22 1028: Subjective Date Seen by a Provider: Aug 22, 2022 Subjective/Events-last exam Pt is lying in bed complaining of feeling hot since she woke up this AM. Pt appears to have sweat on her forehead. Pt has not been febrile and was not this AM. Pt denies any labial pain with rest but reports 5/10 pain with ambulation and mild stinging with urination. The leaking from the wound vac was fixed yesterday according to the patient and she is not having problems with the machine or any leakage. Did not examine area and will wait for attending to be present for exam. Pt denies any warmth or increased swelling of the labia. She denies any other complaints such as CP, SOA, N/V. Pt is tolerating low carb diet with no complaints. Review of Systems General: No Chills; Night Sweats, Other (pt reports feeling hot) HEENT: No Head Aches, No Visual Changes Pulmonary: No Dyspnea, No Cough Cardiovascular: No: Chest Pain, Lt Headedness Gastrointestinal: No: Nausea, Vomiting, Abdominal Pain Genitourinary: Dysuria (stinging with urination due to wound); No Hematuria Neurological: No: Change in speech, Confusion Focused Exam Time of Focused Exam: 04:30 Objective Exam Vital Signs Date Time Temp Pulse Resp B/P (MAP) Pulse Ox O2 Delivery O2 Flow Rate FiO2 08/22/22 08:46 36.8 87 93 21 08/22/22 08:44 93 Room Air 0.00 08/22/22 08:00 36.6 90 18 131/85 (100) 91 Room Air 08/22/22 03:47 36.8 90 16 138/64 (88) 94 Room Air 08/22/22 03:04 94 Room Air 08/22/22 00:00 36.7 83 16 170/91 (117) 94 Room Air 08/21/22 20:29 36.6 87 16 154/85 (108) 93 Room Air 08/21/22 19:30 Room Air 08/21/22 16:00 36.7 85 18 142/83 (102) 90 Room Air 08/21/22 11:48 36.6 85 20 115/74 (88) 94 Room Air 08/21/22 11:18 93 Nasal Cannula 2.00 I & O 08/22/22 07:00 Intake Total 1800 ml Output Total 2 ml Balance 1798 ml Capillary Refill : Less Than 3 SecondsLess Than 3 Seconds General Appearance: No Apparent Distress, WD/WN HEENT: PERRL/EOMI, Moist Mucous Membranes; No Scleral Icterus (L), No Scleral Icterus (R) Neck: Non Tender, Supple Respiratory: Lungs Clear, No Accessory Muscle Use Cardiovascular: Regular Rate, Rhythm, Normal Peripheral Pulses Peripheral Pulses: 2+ Radial Pulses (R), 2+ Radial Pulses (L) Gastrointestinal: non tender, soft Extremity: No Calf Tenderness, No Pedal Edema Neurologic/Psychiatric: Alert, Oriented x3 Skin: Normal Color, Warm/Dry, Other (right wound open, no purulent drainage at this time, wound vac currently functioning, mild erythema on right) Lymphatic: No Adenopathy Results Lab Laboratory Tests 08/21/22 16:19: Glucometer 125H 08/21/22 20:41: Glucometer 138H 08/22/22 05:44: Glucometer 113H 08/22/22 05:46: White Blood Count 8.7, Red Blood Count 3.27L, Hemoglobin 9.8L, Hematocrit 30L, Mean Corpuscular Volume 92, Mean Corpuscular Hemoglobin 30, Mean Corpuscular Hemoglobin Concent 33, Red Cell Distribution Width 13.0, Platelet Count 317, Mean Platelet Volume 10.7, Immature Granulocyte % (Auto) 6, Neutrophils (%) (Auto) 50, Lymphocytes (%) (Auto) 31, Monocytes (%) (Auto) 9, Eosinophils (%) (Auto) 4, Basophils (%) (Auto) 1, Neutrophils # (Auto) 4.4, Lymphocytes # (Auto) 2.7, Monocytes # (Auto) 0.8, Eosinophils # (Auto) 0.3, Basophils # (Auto) 0.1, Immature Granulocyte # (Auto) 0.5H, Percent Immature Platelet Fraction 5.9, Sodium Level 139, Potassium Level 5.5H, Chloride Level 108H, Carbon Dioxide Level 22, Anion Gap 9, Blood Urea Nitrogen 14, Creatinine 0.70, Estimat Glomerular Filtration Rate 111, BUN/Creatinine Ratio 20, Glucose Level 117H, Calcium Level 7.3L, Corrected Calcium 8.3L, Magnesium Level 1.8, Total Bilirubin 0.1, Aspartate Amino Transf (AST/SGOT) 49H, Alanine Aminotransferase (ALT/SGPT) 33, Alkaline Phosphatase 103, Total Protein 6.0L, Albumin 2.7L Microbiology 08/19/22 Gram Stain - Final, Resulted 08/19/22 Wound Culture - Preliminary, Resulted Enterococcus faecalis 08/13/22 MRSA Screen - Final, Complete MRSA not isolated 08/13/22 Blood Culture - Final, Complete No growth 08/13/22 Urine Culture - Final, Complete Gram Pos Mixed Bacterial Samantha Assessment/Plan Assessment/Plan Assessment/Plan s/p i and d right labial abscess x2 dka- resolved wound vac Continue IV abx and topical nystatin cream. Continue IV fluids. Continue pain medication prn. DKA resolved, last glucose 117, continue SSI .Wound vac currently in use. Appreciate wound care recs for take home care. DELONTE WHITNEY DO 08/22/22 1430: Subjective Time Seen by a Provider: 13:17 Subjective/Events-last exam Pt seen and examined, no changes. Review of Systems General: No Chills, No Night Sweats; Other (pt reports feeling hot) Pulmonary: No Dyspnea, No Cough Cardiovascular: No: Chest Pain Gastrointestinal: No: Nausea, Vomiting, Abdominal Pain Genitourinary: Dysuria (stinging with urination due to wound); No Hematuria Objective Exam General Appearance: No Apparent Distress, WD/WN HEENT: Moist Mucous Membranes Respiratory: Lungs Clear, Normal Breath Sounds, No Accessory Muscle Use Cardiovascular: Regular Rate, Rhythm, No Murmur Gastrointestinal: non tender, soft Skin: Other (right wound with wound vac in place and not leaking, mild erythema on right) Assessment/Plan Assessment/Plan Assessment/Plan s/p i and d right labial abscess x2 dka- resolved wound vac Continue IV abx and topical nystatin cream. Continue IV fluids. Continue pain medication prn. DKA resolved, last glucose 117, continue SSI .Wound vac currently in use. Appreciate wound care recs for take home care. Supervisory-Addendum Brief Verification & Attestation Participated in pt care: history, MDM, physical Personally performed: exam, history, MDM, supervision of care Care discussed with: Medical Student Procedures: n/a Verification and Attestation of Medical Student E/M Service A medical student performed and documented this service. I then reviewed and verified all information documented by the medical student and made modifications to such information, when appropriate. I personally performed a physical exam, medical decision making and then discussed any differences between the notes and made revisions as necessary to create one note. Delonte Whitney , 08/22/22 , 14:29 PEREZ VEE Aug 22, 2022 10:28 DELONTE WHITNEY DO Aug 22, 2022 14:30
[2022-08-22] MEDS: PANTOPRAZOLE 40 MG (PROTONIX) TAB PO SCH (20:26)
[2022-08-22] MEDS: OLANZapine 5 MG ODT (ZyPREXA ZYDIS) PO SCH (20:26)
[2022-08-23] MEDS: MEROPENEM 500 MG in NS (IVPB) 100 ML IV SCH ×2 (02:42→08:55)
[2022-08-23 04:01] VITALS: BP 156/79
[2022-08-23] MEDS: ENOXAPARIN 40 MG/0.4 ML (LOVENOX) SYR SC SCH (05:44)
[2022-08-23] MEDS: MULTIVIT W/MINERALS TAB (THERAGRAN M) PO SCH (05:44)
[2022-08-23] MEDS: inSUlin ASPART (NovoLOG) 1 UNIT/0.01 ML (CHARGE PER UNIT) SC SCH ×2 (05:44→05:45)
[2022-08-23] MEDS: LEVOTHYROXINE 75 MCG (LEVOTHROID) TABLET PO SCH (05:44)
[2022-08-23 08:11] VITALS: BP 135/63
[2022-08-23] MEDS: SENNOSIDES 8.6 MG (SENOKOT) TAB PO SCH (08:48)
[2022-08-23] MEDS: DOCUSATE SODIUM 100 MG (COLACE) CAP PO SCH (08:48)
[2022-08-23] MEDS: DIVALPROEX EXT RELEASE 250 MG (DEPAKOTE ER) TAB PO SCH (08:48)
[2022-08-23] MEDS: LACTOBACILLUS ACIDOPHILUS (PROBIOTIC) CAPSULE PO SCH (08:48)
[2022-08-23] MEDS: FLUoxetine HCL 20 MG (PROzac) CAP PO SCH (08:48)
[2022-08-23] MEDS: fluCOnazole (DIFLUCAN) 100 MG TAB PO SCH (08:48)
[2022-08-23] MEDS: NYSTATIN CREAM (MYCOSTATIN) 30 GM TUBE TP SCH (08:49)
[2022-08-23] MEDS: HYDROmorphone 2 MG/ML VIAL (DILAUDID) IV PRN (09:37)
[2022-08-23] MEDS ORDERED: NYST15CR35 TP ×2 (09:57)
[2022-08-23] MEDS ORDERED: INSU200I4 SC ×2 (09:57)
[2022-08-23] MEDS ORDERED: LACT1CAP7 PO ×2 (09:57)
[2022-08-23] MEDS ORDERED: INSU100I66 SC ×2 (09:57)
[2022-08-23] MEDS ORDERED: FLUC100T10 PO ×2 (09:57)
[2022-08-23] MEDS ORDERED: SULF-221 PO ×2 (09:57)
[2022-08-23] MEDS ORDERED: OXC5T PO ×2 (09:57)
--- NOTE | 2022-08-23 10:00 | D/C HH Face to Face Order ---
D/C Face to Face Orders Reconcile Patient Problems Problems Reviewed?: Yes Instructions for Patient Via [facility], Patient Instructions/FollowUp: [facility] 1 week Physician to follow Patient: [facility] Discharge Diet for Home: ADA Diet Patient Problems: Labial abscess Patient Data-Allergies,Ht & Wt Patient Allergies: Coded Allergies: amoxicillin (Unverified Allergy, Severe, sob, rash, 11/01/10) clindamycin (Verified Allergy, Unknown, 08/16/21) Penicillins (Verified Adverse Reaction, Severe, RASH, 12/14/05) cefuroxime (Verified Adverse Reaction, Severe, RASH, 12/14/05) clarithromycin (Unverified Adverse Reaction, Mild, nausea and dizziness, 02/07/14) Height (Feet): 5 Height (Inches): 6.00 Weight (Pounds): 192 Weight (Ounces): 0 Home Health Need/Face to Face Date of Face to Face: Aug 23, 2022 Clinical Findings: Generalized weakness and fatigue I have seen Pt [id number]: Yes Discharged To: Home Diagnosis/Conditions: Debility Patient is Homebound due to: Muscle weakness Homebound Status Due to the above stated illness, injury or surgical procedure (medical condition or diagnosis) and associated clinical findings, the patient is homebound because of his/her inability to leave home except with aid of a supportive device and/or person AND leaving the home requires a considerable and taxing effort or is medically contraindicated. Pt req the following assistanc: [facility] Nursing Orders Home Health Services Order: Nursing Services, [employer]-Evaluate & Treat, Physical Therapy-Evaluate & Treat, Wound Care-Eval/Treat Home Health Infusion Therapy Line Start Date: Aug 18, 2022 Certify Stmt I certify that this patient is under my care and that I, a nurse practitioner or a physician; a marketing administrative assistant working with me, had a face to face encounter that - meets the physician face to face encounter requirements with this patient as dated. WILI BHATIA DO Aug 23, 2022 10:00
--- NOTE | 2022-08-23 10:00 | Discharge Summary ---
Discharge Summary Hospital Course Was the Problem List Reviewed?: Yes Problems/Dx: (1) DKA (diabetic ketoacidosis) Status: Resolved Qualifiers: Qualified Codes: E11.10 - Type 2 diabetes mellitus with ketoacidosis without coma (2) Sepsis Status: Acute (3) Abscess of right genital labia Status: Acute (4) Diabetes mellitus, insulin dependent (IDDM), uncontrolled Status: Acute (5) Electrolyte imbalance Hospital Course Date of Admission: Aug 13, 2022 at 04:47 Admission Diagnosis : Family Physician/Provider: [place] Date of Discharge: 08/23/22 Discharge Diagnosis: Assess & Plan/Chief Complaint Assessment: DKA now resolved Leukocytosis Right labial abscess status post incision and drainage x 2 now with wound VAC Insulin-dependent diabetes mellitus - uncontrolled Electrolyte imbalance Plan: Insulin adjusted IV antibiotics Appreciate Dr. Hutton Hospital Course: Pt had a lengthy hospital course for 11 days after she was admitted due to right labial abscess requiring IND by Dr. Tarango and antibiotic maintenance, along with DKA resolution due to medical non compliance with insulin. She required an incision and drainage again. She was found to be stable with wound vac. Home health will be managing that. She will remain on Bactrim twice daily for an additional [address] Tarango. Labs and Pending Lab Test: Laboratory Tests 08/22/22 10:44: Glucometer 143H 08/22/22 15:21: Glucometer 129H 08/22/22 20:33: Glucometer 98 08/23/22 05:23: Glucometer 60*L 08/23/22 06:26: Glucometer 141H Microbiology 08/19/22 Gram Stain - Final, Complete 08/19/22 Wound Culture - Final, Complete Enterococcus faecium Usual Vaginal Samantha 08/13/22 MRSA Screen - Final, Complete MRSA not isolated 08/13/22 Blood Culture - Final, Complete No growth 08/13/22 Urine Culture - Final, Complete Gram Pos Mixed Bacterial Samantha Home Meds Active Nystatin 100,000 Unit/Gram Cream..g. 0 Gm TP TID three times day Acidophilus-Pectin Capsule (Lactobacillus Acidophilus/Pect) 75 Million Cell-100 Mg Capsule 2 Each PO TIDWM Oxyir Tablet (Oxycodone HCl) 5 Mg Tab 10 Mg PO Q4H PRN Fluconazole 100 Mg Tablet 100 Mg PO DAILY Tresiba Flextouch U-200 (Insulin Degludec) 200 Unit/Ml (3 Ml) Insuln.pen 50 Units SC HS 14 Days Bactrim Ds Tablet (Sulfamethoxazole/Trimethoprim) 800 Mg-160 Mg Tablet 1 Ea PO BID FILLED 07-30-2022 #14/7 DAY SUPPLY Aaliyah Newpen U-100 (Insulin Lispro-Aabc) 100 Unit/Ml Insuln.pen 5 Units SC AC 14 Days Reported Multivitamin Gummies (Multivit-Minerals/Folic Acid) 200 Mcg Tab.chew 200 Mcg PO DAILY Nurtec Odt (Rimegepant Sulfate) 75 Mg Tab.rapdis 75 Mg PO UD PRN Fluoxetine HCl 20 Mg Capsule 20 Mg PO DAILY Divalproex Sodium ER (Divalproex Sodium) 500 Mg Tab.er.24h 1,000 Mg PO BID TAKES 2 (500MG) TABS Guanfacine HCl ER (Guanfacine HCl) 3 Mg Tab.er.24h 3 Mg PO DAILY Atomoxetine HCl 60 Mg Capsule 60 Mg PO HS Ozempic (Semaglutide) 1 Mg/0.75 Ml (4 Mg/3 Ml) Pen.injctr 1 Mg SC FRI @HS Olanzapine 15 Mg Tablet 15 Mg PO HS Pantoprazole Sodium 40 Mg Tablet.dr 40 Mg PO HS Prazosin HCl 1 Mg Capsule 3 Mg PO HS TAKES 3 (1MG) CAPS Synthroid (Levothyroxine Sodium) 75 Mcg Tablet 75 Mcg PO DAILY Assessment/Pt Instructions PCP in 1 week Discharge Planning: <30 minutes discharge planning Discharge Instructions Discharge Diet: ADA Diet Discharge Physical Examination Vital Signs Vital Signs Date Time Temp Pulse Resp B/P (MAP) Pulse Ox O2 Delivery O2 Flow Rate FiO2 08/23/22 08:11 36.4 83 18 135/63 (87) 95 Room Air 08/22/22 08:46 21 08/22/22 08:44 0.00 General Appearance: No Apparent Distress, WD/WN, Chronically ill Respiratory: Lungs Clear Cardiovascular: Regular Rate, Rhythm Allergies: Coded Allergies: amoxicillin (Unverified Allergy, Severe, sob, rash, 11/01/10) Sulfa (Sulfonamide Antibiotics) (Verified Allergy, Unknown, 08/23/22) clindamycin (Verified Allergy, Unknown, 08/16/21) Penicillins (Verified Adverse Reaction, Severe, RASH, 12/14/05) cefuroxime (Verified Adverse Reaction, Severe, RASH, 12/14/05) clarithromycin (Unverified Adverse Reaction, Mild, nausea and dizziness, 02/07/14) Discharge Summary Date of Admission Aug 13, 2022 at 04:47 Date of Discharge Discharge Date: Aug 23, 2022 Admission Diagnosis DKA and Right labial cellulitis/abscess Discharge Diagnosis Assessment: DKA now resolved Leukocytosis Right labial abscess status post incision and drainage x 2 now with wound VAC Insulin-dependent diabetes mellitus - uncontrolled Electrolyte imbalance Plan: Insulin adjusted IV antibiotics Appreciate WILI Blair DO Aug 23, 2022 10:00
[2022-08-23 12:24] VITALS: BP 135/63
[2022-08-23] MEDS ORDERED: LEVO750T PO ×2 (17:56)
== END 2022-08-23 11:56 | disposition home health service (06) | DRG 853 ==
LOC: EDUNIT# 03:03 → ER 03:06 → ICU 04:47 → 4TH 08-14 12:07
PROVIDERS: ADMIT Internal Medicine; ATTEND Internal Medicine
PROC: 0U9M0ZZ Drainage of Vulva, Open Approach (ICD-10-PCS; principal; 2022-08-13 09:53)
DX: A41.51 Sepsis due to Escherichia coli [E. coli] (principal); E11.10 Type 2 diabetes mellitus with ketoacidosis without coma; E46 Unspecified protein-calorie malnutrition; N76.2 Acute vulvitis; A41.81 Sepsis due to Enterococcus; Z68.32 Body mass index [BMI] 32.0-32.9, adult; E87.6 Hypokalemia; R09.02 Hypoxemia; I10 Essential (primary) hypertension; F17.210 Nicotine dependence, cigarettes, uncomplicated; F12.90 Cannabis use, unspecified, uncomplicated; K21.9 Gastro-esophageal reflux disease without esophagitis; H54.3 Unqualified visual loss, both eyes; E66.9 Obesity, unspecified; E03.9 Hypothyroidism, unspecified; Z68.34 Body mass index [BMI] 34.0-34.9, adult; Z91.14 Patient's other noncompliance with medication regimen; Z79.85 Long-term (current) use of injectable non-insulin antidiabetic drugs; Z79.4 Long term (current) use of insulin; Z88.1 Allergy status to other antibiotic agents; Z88.0 Allergy status to penicillin; Z82.49 Family history of ischemic heart disease and other diseases of the circulatory system; Z83.3 Family history of diabetes mellitus
CPT/HCPCS: 36410; 36415; 74177; 76856; 76937; 80048; 80053; 80202; 80306; 80320; 81000; 82010; 82728; 82947; 83036; 83540; 83550; 83605; 83735; 84100; 84145; 84703; 85025; 85652; 86141; 87040; 87070; 87075; 87077; 87081; 87088; 87101; 87186; 87205; 94664; 94760; 96361; 96365; 96367; 96375

== ENCOUNTER → 2022-08-25 | Outpatient (CLI) | payer MEDICARE, MEDICAID ==
[~2022-08-25] MED LIST changes: +ATOM60CA4 PO; +DIVA500T15 PO; +FLUC100T10 PO; +FLUO20CA48 PO; +GUAN3TAB2 PO; +INSU100I66 SC; +INSU200I4 SC; +LACT1CAP7 PO; +LEVO750T PO; +MULT200T12 PO; +NYST15CR35 TP; +OLAN15TA35 PO; +OXC5T PO; +RIME75TA PO; +SEMA1PEN3 SC; +SULF-221 PO
== END ==
LOC: WOUNDCARE 13:14
PROVIDERS: ATTEND Family Medicine
DX: L03.315 Cellulitis of perineum (principal); E11.622 Type 2 diabetes mellitus with other skin ulcer; L02.215 Cutaneous abscess of perineum; E11.65 Type 2 diabetes mellitus with hyperglycemia; E11.52 Type 2 diabetes mellitus with diabetic peripheral angiopathy with gangrene; I96 Gangrene, not elsewhere classified; D46.4 Refractory anemia, unspecified; E44.0 Moderate protein-calorie malnutrition; T65.292A Toxic effect of other tobacco and nicotine, intentional self-harm, initial encounter; B95.2 Enterococcus as the cause of diseases classified elsewhere; B37.2 Candidiasis of skin and nail; Z68.32 Body mass index [BMI] 32.0-32.9, adult
CPT/HCPCS: 11042; A6260; G0463

== ENCOUNTER → 2022-09-01 | Outpatient (CLI) | payer MEDICARE, MEDICAID | LOC: WOUNDCARE 08:52 | PROVIDERS: ATTEND Family Medicine | DX: L02.215 Cutaneous abscess of perineum (principal); E11.622 Type 2 diabetes mellitus with other skin ulcer; E11.65 Type 2 diabetes mellitus with hyperglycemia; D46.4 Refractory anemia, unspecified; E44.0 Moderate protein-calorie malnutrition; T65.292A Toxic effect of other tobacco and nicotine, intentional self-harm, initial encounter; Z68.32 Body mass index [BMI] 32.0-32.9, adult | CPT/HCPCS: 11042; G0463 ==

== ENCOUNTER → 2022-09-08 | Outpatient (CLI) | payer MEDICARE, MEDICAID | LOC: WOUNDCARE 08:43 | PROVIDERS: ATTEND Family Medicine | DX: L02.215 Cutaneous abscess of perineum (principal); I96 Gangrene, not elsewhere classified; E11.65 Type 2 diabetes mellitus with hyperglycemia; E11.622 Type 2 diabetes mellitus with other skin ulcer; D46.4 Refractory anemia, unspecified; E44.0 Moderate protein-calorie malnutrition; T65.292A Toxic effect of other tobacco and nicotine, intentional self-harm, initial encounter; Z68.32 Body mass index [BMI] 32.0-32.9, adult | CPT/HCPCS: 11042; G0463 ==

== ENCOUNTER → 2022-09-15 | Outpatient (CLI) | payer MEDICARE, MEDICAID | LOC: WOUNDCARE 08:45 | PROVIDERS: ATTEND Family Medicine | DX: L02.215 Cutaneous abscess of perineum (principal); E11.622 Type 2 diabetes mellitus with other skin ulcer; E11.65 Type 2 diabetes mellitus with hyperglycemia; D46.4 Refractory anemia, unspecified; E44.0 Moderate protein-calorie malnutrition; T65.292A Toxic effect of other tobacco and nicotine, intentional self-harm, initial encounter | CPT/HCPCS: 11042; G0463 ==

== ENCOUNTER → 2022-09-22 | Outpatient (CLI) | payer MEDICARE, MEDICAID | LOC: WOUNDCARE 08:48 | PROVIDERS: ATTEND Family Medicine | DX: L02.215 Cutaneous abscess of perineum (principal); E11.622 Type 2 diabetes mellitus with other skin ulcer; E11.65 Type 2 diabetes mellitus with hyperglycemia; E44.0 Moderate protein-calorie malnutrition; D46.4 Refractory anemia, unspecified; T65.292A Toxic effect of other tobacco and nicotine, intentional self-harm, initial encounter; Z68.32 Body mass index [BMI] 32.0-32.9, adult | CPT/HCPCS: 11042; A6197; G0463 ==

== ENCOUNTER → 2022-09-29 | Outpatient (CLI) | payer MEDICARE, MEDICAID | LOC: WOUNDCARE 08:56 | PROVIDERS: ATTEND Family Medicine | DX: L02.215 Cutaneous abscess of perineum (principal); E11.622 Type 2 diabetes mellitus with other skin ulcer; E11.65 Type 2 diabetes mellitus with hyperglycemia; D46.4 Refractory anemia, unspecified; E44.0 Moderate protein-calorie malnutrition; T65.292A Toxic effect of other tobacco and nicotine, intentional self-harm, initial encounter; Z68.32 Body mass index [BMI] 32.0-32.9, adult | CPT/HCPCS: 17250 ==

== ENCOUNTER → 2023-09-06 | Outpatient (CLI) | payer MEDICARE ==
[~2023-09-06] MED LIST changes: -INSU100I29 SQ; +INSU100I30 SQ; -MECL-149 PO; +MECL-291 PO; +MICO1KIT VG; -MICO1KIT8 VG
--- NOTE | 2023-09-06 12:57 | Diagnostic Imaging Report ---
EXAMINATION: Magnetic resonance imaging of the left shoulder without contrast. DATE: September 06, 2023. COMPARISON: None. HISTORY: 43-year-old female, left shoulder pain. TECHNIQUE: Magnetic Resonance Imaging sequences were performed of the shoulder without contrast. FINDINGS: ROTATOR CUFF, LIGAMENTS, TENDONS, AND MUSCLES: The supraspinatus, infraspinatus, teres minor, and subscapularis tendons and muscles are intact. There is normal rotator cuff muscle bulk and signal. LONG HEAD OF BICEPS: The biceps labral attachment and long head of the biceps tendon are intact. The long head of the biceps tendon is normally positioned within the bicipital groove. GLENOHUMERAL JOINT: The humeral head is well positioned relative to the glenoid. The labrum is grossly intact. There is no identified paralabral cyst. The articular cartilage is grossly intact. There is no joint effusion. There is thickening and increased signal of the axillary pouch as well as prominent edema in the rotator interval. These are MRI findings associated with adhesive capsulitis which would be a clinical diagnosis. ACROMIOCLAVICULAR JOINT: The acromioclavicular joint is normally aligned. The coracoclavicular and coracoacromial ligaments are intact. There are no degenerative changes of the acromioclavicular joint. BONE: There is no os acromiale. There is no Hill-Sachs deformity. There is no acute fracture, bone contusion, or evidence of osteonecrosis. BURSAE AND SOFT TISSUES: The bursae and soft tissue surrounding the shoulder are unremarkable. IMPRESSION: 1. Thickening of the axillary pouch and abnormal edema in the rotator interval which are MRI findings which would be supportive of adhesive capsulitis which would be a clinical diagnosis. 2. Intact rotator cuff and proximal long head of the biceps tendon. 3. Intact acromioclavicular joint. 4. No acute fracture, bone contusion, or other notable bone marrow signal abnormality. Dictated by: Dictated on workstation # [id number]
== END ==
LOC: RAD 08:27
PROVIDERS: ATTEND Nurse Practitioner Family
DX: M75.02 Adhesive capsulitis of left shoulder (principal)
CPT/HCPCS: 73221